=== PATIENT | male | born 1980 | race African-American/Black ===

== ENCOUNTER 2025-01-04 07:26 | Inpatient (IN) | payer OTHER, SELFPAY ==
[2025-01-04] VITALS (13 sets, daily range): BP systolic 106–132; BP diastolic 71–109; PULSE 51–79; RESP 17–28; TEMP 35.7–36.7; O2SAT 95–100; BMI 23.9; BMI 23.3
--- NOTE | 2025-01-04 08:08 | EKG12_ITS ---
Test Reason : SOB Blood Pressure : */* mmHG Vent. Rate : 55 BPM Atrial Rate : 55 BPM P-R Int : 142 ms QRS Dur : 152 ms QT Int : 514 ms P-R-T Axes : 78 174 -11 degrees QTcB Int : 491 ms Sinus bradycardia with 2:1 heart block incomplete LBBB Abnormal ECG Reconfirmed by SNOW BOSTON, JULIETTE ([id number]), scientific editor AGUSTÍN KIDD ([id number]) on 01/06/2025 6:44:03 AM Referred By: Confirmed By: JULIETTE ADAMSON MD
--- NOTE | 2025-01-04 08:14 | EX.ED.DYSGE1 ---
HPI History of Present Illness Chief Complaint: Shortness of Breath Informant: patient and spouse/S.O. Narrative Narrative: Patient is a 44-year-old male with ported history of heart failure who states has been out of the hospital frequently over the past few months and states that he is on Bumex andEliquis Eliquis presenting with worsening shortness of breath as well as swelling. He states he has had weight gain over the past 3 weeks with increased shortness of breath/dyspnea on exertion. Does report nonproductive cough. States he is not sleeping well at night. Denies any chest pain. States he is now having swelling in his stomach and because of this he has not had much appetite since yesterday. This prompted him to come to the emergency room. He is also having increased swelling of his legs. He states he normally receives his care through [facility] because of his insurance but has had a hard time following up and getting to appointments because of transportation and the distance. States he has been compliant with his medications. Is in the process of trying to establish down here in [place]. Denies any chest pain. Denies any fever or chills. Denies any change in urination. Patient does not know what triggered his fluid overload. Note from inpatient encounter at [facility] on 10/26/2024 she is at patient has history of heart failure with reduced ejection fraction, cardiogenic shock and healthcare associated pneumonia as well as DVT. He has CKD stage IIIb as well as cirrhosis. There is a reported history of left bundle branch block, has issue with compliance of therapy and at that time wanted to be discharged home . Reported ejection fraction 15%. [facility] Medical History (Updated 01/04/25 @ 16:[address] Deborah Penaloza, DO) Kidney disease Non-smoker Irregular heart beat DVT (deep venous thrombosis) CKD (chronic kidney disease) Cardiomyopathy Left bundle branch block Noncompliance Pulmonary embolism CHF (congestive heart failure) Home Medications ?Medication ?Instructions ?Recorded ?Last Taken ?Type apixaban 5 mg tablet (Eliquis) 5 mg PO BID 01/04/25 Unknown History bumetanide 1 mg tablet 1 mg PO BID 01/04/25 Unknown History isosorbide dinitrate 20 mg tablet 20 mg PO Q8H 01/04/25 Unknown History Allergy/AdvReac Type Severity Reaction Status Date / Time No Known Allergies Allergy Verified 01/04/25 07:32 Family History (Updated 01/04/25 @ 13:[address] Anshul Lemus DO) Father Heart disease Brother Heart disease Social History (Updated 01/04/25 @ 13:[address] Anshul Lemus DO) Smoking Status: Never smoker alcohol intake: never substance use type: does not use ROS ROS ED Constitutional Constitutional ED: Denies chills or fever(s) Eyes Eyes: Denies change in vision Cardiovascular Cardiovascular: Denies chest pain or palpitations Respiratory/Chest Respiratory/Chest: Reports cough, dyspnea and dyspnea on exertion; Denies sputum Gastrointestinal Gastrointestinal: Reports diarrhea and other; Denies abdominal pain, melena, nausea or vomiting Musculoskeletal Musculoskeletal: Denies arthralgias or myalgias Integumentary Denies rash Neurologic Neurologic: Reports weakness Hematologic/Lymphatic Hematologic/Lymphatic: Reports easy bleeding and easy bruising EXAM Physical Exam Const Vital Signs: 01/04/25 07:28 01/04/25 07:52 01/04/25 08:26 Temperature 97.0 F L Temperature Source Temporal Pulse Rate 56 L 56 L Respiratory Rate 20 H 18 Respiratory Effort Normal Non-Labored Respiratory Depth Normal Respiratory Pattern Normal Blood Pressure 128/95 H Blood Pressure Mean 106 Pulse Ox 95 100 Oxygen Delivery Method Room Air Room Air Room Air Oxygen Flow Rate (L/min) 01/04/25 09:00 01/04/25 10:23 01/04/25 11:06 Temperature Temperature Source Pulse Rate 51 L 51 L 56 L Respiratory Rate 24 H 19 H 18 Respiratory Effort Respiratory Depth Respiratory Pattern Blood Pressure 123/109 H 121/96 H Blood Pressure Mean 113 104 Pulse Ox 95 98 96 Oxygen Delivery Method Room Air Nasal Cannula Nasal Cannula Oxygen Flow Rate (L/min) 2 2 01/04/25 12:00 01/04/25 13:00 Temperature Temperature Source Pulse Rate 55 L 54 L Respiratory Rate 19 H 28 H Respiratory Effort Respiratory Depth Respiratory Pattern Blood Pressure 121/71 H Blood Pressure Mean 87 Pulse Ox 99 Oxygen Delivery Method Nasal Cannula Oxygen Flow Rate (L/min) 2 Positive well nourished and well developed General Appearance ED: well developed and NAD HEENT Reports moist mucous membranes Eyes PERRL Neck supple Neck Narrative: Significant JVD present. Chest Wall inspection of chest normal and palpation of chest normal Resp Resp Narrative: Mild tachypnea. Crackles at the bases, more pronounced at the right lung base Cardio Cardio Narrative: Clicking diastolic murmur present Rate: bradycardia GI GI Narrative: Nontender abdomen. Abdominal distention with mild fluid wave present. Extremity Extremity Narrative: Pitting edema up to the mid thighs, 3+ Neuro oriented x3 Sensorium / Orientation: alert Motor Exam: general weakness Psych mental status grossly normal Skin no rashes or lesions noted and no wounds MDM MDM MDM Narrative Medical decision making narrative: Patient evaluated for worsening shortness of breath, swelling and abdominal distention. On exam patient was tachypneic and appears significantly fluid overloaded. Discharge summary from [facility] on 10/17 through 10/26 reviewed. Patient was admitted for acute on chronic heart failure with reduced ejection fraction, acute DVT of the lower extremity and acute on chronic CKD. He also had questionable pneumonia of the right lower lobe. Shows that he also has cirrhosis, mild transaminitis, mild elevation of his both direct and total bili movement and elevated creatinine. At that time patient presented for pneumonia but then there was concern that he went to cardiogenic shock was admitted to the CICU. There he refused IV therapies and base of intervention such as [place] or right heart catheterization. Lab work shows elevation of his creatinine of 2.03 with mild elevation of his BUN of 30. His creatinine baseline appears to be 2.0 per [facility] documentation. He has elevation of his bilirubin but this is down from when he was in the hospital last. Bedside ultrasound performed by myself of the abdomen does show quite [place] with ascites. Given his significant elevation of his alkaline phosphatase and bilirubin did obtain ultrasound however this only showed ascites. He has high since he troponins are elevated but stable and I do not think this is an NSTEMI. BNP significantly elevated at 25,000. Given the patient's significant cardiac history, murmur which patient is unaware of having however patient does seem to be a poor historian, and worsening ascites I do think he would benefit from mission for diuresis via IV. I did speak with Dr. Almaraz about the patient's case who states that it sounds like he would be fine to follow-up outpatient with cardiology and be admitted to the medicine service for diuresis. Case discussed with Dr. Lemus for admission. After discussion with Dr. Lemus states that he would prefer to order diuresis. Lab Data Attestation: I reviewed the patient's lab results. Labs: Laboratory Results - last 24 hr 01/04/25 01/04/25 01/04/25 09:34 11:20 13:36 WBC 6.2 RBC 3.90 L Hgb 12.9 L Hct 40.6 MCV 104.1 H MCH 33.1 H MCHC 31.8 L RDW Std Deviation 57.5 H RDW Coeff of Juan 15.0 H Plt Count 219 MPV 10.4 Immature Gran % (Auto) 0.200 Neut % (Auto) 59.5 Lymph % (Auto) 30.6 [place] % (Auto) 9.1 Eos % (Auto) 0.3 Baso % (Auto) 0.3 Absolute Neuts (auto) 3.7 Absolute Lymphs (auto) 1.88 Nucleated RBC % 0.3 Sodium 144 Potassium 3.7 Chloride 105 Carbon Dioxide 25.2 Anion Gap 14 BUN 30 H Creatinine 2.03 H Estim Creat Clear Calc 51.39 Est GFR (MDRD) Non-Af 40 L BUN/Creatinine Ratio 14.9 Glucose 97 Calcium 9.0 Total Bilirubin 4.32 H Direct Bilirubin 2.68 H AST 28 ALT 22 Alkaline Phosphatase 743 H Troponin T High Sens 45 H Troponin T Hi Sens 2 Hr 42 H Troponin T Hi Sens 4Hr 45 [place] [address] H Total Protein 6.8 Albumin 3.6 Globulin 3.2 Lipase 15 Radiography Diagnostic Testing: Clinical Impression(s) from Imaging Studies Chest X-Ray 01/04/25 08:25 IMPRESSION: Bibasilar atelectasis or pneumonia. Reading Location: [facility] Abdomen Ultrasound 01/04/25 11:03 IMPRESSION: 1. Ascites. 2. Fatty infiltration of the liver. Reading Location: [facility] Rhythm Strip Rhythm Strip: Sinus bradycardia Rate: 55 Ectopy: None EKG Initial EKG: Attestation: I personally reviewed and interpreted this EKG as follows: Interpretation: Sinus Bradycardia Comments: Sinus bradycardia at a rate 85 beats per manage Right axis deviation LVH with repolarization abnormality Intraventricular conduction delay present T wave inversions in 3, aVF and V6 Prior EKG tracings: not available for review Management Discussion w/another healthcare provider: Hospitalist and Tank Builder (Cardiology-felt that patient was fine to be diuresed admitted to medicine service) Discharge Plan Dx/Rx/DC Orders Clinical Impression: CKD stage 3b, GFR 30-44 ml/min, HFrEF (heart failure with reduced ejection fraction), Elevated bilirubin, Abdominal ascites Disposition Disposition: Acute Care Hospital [facility] Discharge Date/Time: 01/04/25 14:00
--- NOTE | 2025-01-04 08:25 | RAD_ITS ---
EXAM: XR Chest, 2 Views CLINICAL INDICATION: SOB TECHNIQUE: Frontal and lateral views of the chest. COMPARISON: No relevant prior studies available. FINDINGS: LUNGS AND PLEURAL SPACES: Bibasilar atelectasis or pneumonia. No pneumothorax. HEART: Unremarkable. No cardiomegaly. MEDIASTINUM: Unremarkable. Normal mediastinal contour. BONES/JOINTS: Unremarkable. No acute fracture. RAD/Chest PA and Lateral IMPRESSION: Bibasilar atelectasis or pneumonia. [facility]
[2025-01-04 09:45] LABS: Hematocrit 40.6 % (40-54); Hemoglobin 12.9 g/dL (13.0-16.5); Immature Granulocytes Count 0.010 X10^3/uL (0.0-0.0); Mean Corp Hgb Conc 31.8 g/dL (32-36); Mean Corpuscular Volume 104.1 fL (80-94); Mean Platelet Vol. 10.4 fl (6.2-12.0); NRBC Flagged by Analyzer 0.3 % (0-5); Platelet Count 219 K/mm3 (150-450); RBC Distribution Width CV 15.0 % (11.6-14.6); RBC Distribution Width SD 57.5 fl (35.1-43.9); Red Blood Count 3.90 M/mm3 (4.6-6.2); White Blood Count 6.2 K/mm3 (4.4-11.0)
[2025-01-04 10:41] LABS: AST(SGOT) 28 U/L (<=37); Alanine Aminotransfer ALT/SGPT 22 U/L (<=46); Albumin, Serum 3.6 g/dL (3.5-5.0); Alkaline Phosphatase 743 U/L (40-129); Anion Gap 14 (5-15); BUN 30 mg/dL (4-19); BUN/Creat Ratio 14.9 RATIO (10-20); Bilirubin, Direct 2.68 mg/dL (0.00-0.30); Calcium,Total 9.0 mg/dL (7.6-11.0); Carbon Dioxide 25.2 mmol/L (21.0-32.0); Chloride 105 mmol/L (98-108); Estimated Creatinine Clearance 51.39 ml/min (50-250); Globulin 3.2 g/dL (2.2-4.2); Glucose 97 mg/dL (70-99); Lipase 15 U/L (13-75); Potassium 3.7 mmol/L (3.3-5.1); Pro- Brain NATRIURETIC PEPTIDE 24898 pg/mL (<=450)
[2025-01-04 10:59] LABS: Troponin T High Sensitivity 45 ng/L (<=22)
--- NOTE | 2025-01-04 11:03 | US_ITS ---
EXAM: US Abdomen Limited, Right Upper Quadrant CLINICAL INDICATION: ELEVATED LIVER ENZYMES AND BILI TECHNIQUE: Real-time ultrasound of the right upper quadrant with image documentation. COMPARISON: No relevant prior studies available. FINDINGS: LIVER: Liver measures up to 15.9 cm. Fatty infiltration of the liver. No intrahepatic bile duct dilation. GALLBLADDER: Negative Melendez's sign was reported by the talent management manager. No gallstones. COMMON BILE DUCT: Unremarkable as visualized. No stones. No dilation. Common bile duct measures 0.5 cm in diameter. PANCREAS: Unremarkable as visualized. RIGHT KIDNEY: Unremarkable. No stones. No hydronephrosis. The right kidney measures 9.4 x 5.7 x 3.6 cm. INFERIOR VENA CAVA: Mildly dilated IVC measuring up to 3.3 cm diameter. FREE FLUID: Ascites. US/Abdomen Limited IMPRESSION: 1. Ascites. 2. Fatty infiltration of the liver. Reading Location: [facility]
[2025-01-04 12:07] LABS: Troponin T High Sens 2 HR 42 ng/L (<=22)
--- NOTE | 2025-01-04 13:51 | HP.PCM.HOS_ITS ---
[facility] - General General Date of Service: 01/04/25 Chief Complaint: Shortness of breath. Edema. [facility] Narrative CLAIRE MEDINA, is a 44 M who presents with progressive shortness of breath and edema. Patient is a 44-year-old male with a history of nonischemic cardiomyopathy with an ejection fraction of 20%. States that he had a left heart catheterization that showed no obstructive coronary disease. They have attempted right heart catheterization but was unsuccessful and the patient declined further attempts. Resents with increased weight gain of about 10 pounds with period time. Has had numerous hospitalizations over at [facility] [place] and recently was over at [facility] in September. It is documented throughout his charts at [facility] as well as [facility] that he has a history of noncompliance. Patient at home has been taking the amantadine as well as apixaban and isosorbide. Patient has not been put on LUCRECIA inhibitors no angiotensin receptor blockers given chronic kidney disease. Because of his weight gain, shortness of breath, he presented to the ED. His BNP was 25,000, total bilirubin 4.32, direct bilirubin 2.68, creatinine 2.03. Chest x-ray shows some mild pulmonary vascular congestion but also cardiomegaly. The hospital service was contacted for admission. I did discuss with the patient if he wants to have a defibrillator that he should really be transferred elsewhere. I discussed with him at length about the indication a defibrillator because he is at higher risk of lethal cardiac arrhythmia, such as ventricular fibrillation and that would defibrillate him out if he were to sustain that. He expressed needing more time to think by that even though this was brought up to him peers in June. He had expressed apprehension about his arm limited regards to his mobility. His girlfriend was present and states that this is the first time that she has heard any of this despite him being hospice numerous times at different facilities. He again insists that he does not want defibrillator however he wants to be full code. States that anything happens that they would address that he is in the hospital. I tried to impress upon him that the concern is not necessary but we can do in the hospital what he would when he goes home. He states that he still wants time to think about it. [facility] Medical History (Updated 01/04/25 @ 14:[address] Anshul Lemus DO) CKD (chronic kidney disease) Cardiomyopathy Left bundle branch block Noncompliance Pulmonary embolism CHF (congestive heart failure) Home Medications ?Medication ?Instructions ?Recorded ?Last Taken ?Type apixaban 5 mg tablet (Eliquis) 5 mg PO BID 01/04/25 Un known History bumetanide 1 mg tablet 1 mg PO BID 01/04/25 Unknown History isosorbide dinitrate 20 mg tablet 20 mg PO Q8H 5 Unknown History Allergy/AdvReac Type Severity Reaction Status Date / Time No Known Allergies Allergy Verified 01/04/25 07:32 Family History (Updated 01/04/25 @ 13:[address] Anshul Lemus DO) Father Heart disease Brother Heart disease Social History (Updated 01/04/25 @ 13:[address] Anshul Lemus DO) Smoking Status: Never smoker alcohol intake: never substance use type: does not use ROS ROS Narrative All review of systems were negative except as mentioned above in the history of present illness and the other review of systems. Vital Signs Vital Signs Vital Signs: 01/04/25 07:28 01/04/25 07:52 01/04/25 08:26 Temperature 36.1 C L Temperature Source Temporal Pulse Rate 56 L 56 L Respiratory Rate 20 H 18 Respiratory Effort Normal Non-Labored Respiratory Depth Normal Respiratory Pattern Normal Blood Pressure 128/95 H Blood Pressure Mean 106 Pulse Ox 95 100 Oxygen Delivery Method Room Air Room Air Room Air Oxygen Flow Rate (L/min) 01/04/25 09:00 01/04/25 10:23 01/04/25 11:06 Temperature Temperature Source Pulse Rate 51 L 51 L 56 L Respiratory Rate 24 H 19 H 18 Respiratory Effort Respiratory Depth Respiratory Pattern Blood Pressure 123/109 H 121/96 H Blood Pressure Mean 113 104 Pulse Ox 95 98 96 Oxygen Delivery Method Room Air Nasal Cannula Nasal Cannula Oxygen Flow Rate (L/min) 2 2 01/04/25 12:00 01/04/25 13:00 Temperature Temperature Source Pulse Rate 55 L 54 L Respiratory Rate 19 H 28 H Respiratory Effort Respiratory Depth Respiratory Pattern Blood Pressure 121/71 H Blood Pressure Mean 87 Pulse Ox 99 Oxygen Delivery Method Nasal Cannula Oxygen Flow Rate (L/min) 2 Weight Weight: 82.2 kg Body Mass Index (BMI) 23.9 Physical Exam Narrative POCUS: Indication is for heart failure. Did not do full cardiac valve as there is no phased-array probe on the ED ultrasound. But using a FAST exam, heart was globally weak with limited motion but this was due to the fast protocol not through a cardiac protocol. And patient had markedly dilated IVC with no compressibility with inspirations. Right sided kidney was evaluated and did not show any hydronephrosis. Left kidney unable to be visualized. Did not cruciated ascites in the abdomen. Const alert and no apparent distress Constitutional Narrative: On nasal cannula. No respiratory distress. No conversational dyspnea. HEENT normocephalic and head/scalp atraumatic Neck Neck Narrative: Marked JVD. Resp normal respiratory effort, no retractions, no use of accessory muscles and clear to auscultation bilaterally Cardio regular rate, regular rhythm, S1 normal heart sound and S2 normal heart sound GI normal to inspection, nondistended, normoactive bowel sounds, soft to palpation, non-tender, non-distended and hepatosplenomegaly Extremity full ROM Extremity Narrative: Bilateral lower extremity edema. Neuro Sensorium / Orientation: awake, alert, oriented to person, oriented to place and oriented to time Psych affect normal Results Lab / Micro Data Attestation: I reviewed the patient's lab results. 01/04/25 09:34 01/04/25 09:34 Labs: Laboratory Results - last 24 hr 01/04/25 09:34: WBC 6.2, RBC 3.90 L, Hgb 12.9 L, Hct 40.6, MCV 104.1 H, MCH 33.1 H, MCHC 31.8 L, RDW Std Deviation 57.5 H, RDW Coeff of Juan 15.0 H, Plt Count 219, MPV 10.4, Immature Gran % (Auto) 0.200, Neut % (Auto) 59.5, Lymph % (Auto) 30.6, [place] % (Auto) 9.1, Eos % (Auto) 0.3, Baso % (Auto) 0.3, Absolute Neuts (auto) 3.7, Absolute Lymphs (auto) 1.88, Nucleated RBC % 0.3, Sodium 144, Potassium 3.7, Chloride 105, Carbon Dioxide 25.2, Anion Gap 14, BUN 30 H, C reatinine 2.03 H, Estim Creat Clear Calc 51.39, Est GFR (MDRD) Non-Af 40 L, BUN/Creatinine Ratio 14.9, Glucose 97, Calcium 9.0, Total Bilirubin 4.32 H, D irect Bilirubin 2.68 H, AST 28, ALT 22, Alkaline Phosphatase 743 H, Troponin T High Sens 45 H, [place] [address] H, Total Protein 6.8, Albumin 3.6, Globulin 3.2, Lipase 15 01/04/25 11:20: Troponin T Hi Sens 2 Hr 42 H EKG Initial EKG: Attestation: I personally reviewed and interpreted this EKG as follows: EKG Rhythm Intrepretation: Sinus Bradycardia Imaging Radiology Impression Chest X-Ray 01/04/25 08:25 IMPRESSION: Bibasilar atelectasis or pneumonia. Reading Location: [facility] Abdomen Ultrasound 01/04/25 11:03 IMPRESSION: 1. Ascites. 2. Fatty infiltration of the liver. Reading Location: [facility] Assessment & Plan Assessment/Plan (1) HFrEF (heart failure with reduced ejection fraction): PLAN: Patient takes Bumex as outpatient. Did recommend initiating furosemide infusion. Patient Ress reservations about that because he did not want to be limited in regards to his mobility about being tied down to IV pump. He requested the boluses instead. I did explain to him that it would likely expedite more rapid removal but also being safer on the kidneys. Expressed understanding but prefers boluses instead. So we will utilize furosemide 40 mg IV every 8 hours for the time being. Holding off on LUCRECIA inhibitors and angiotensin receptor blockers given CKD. As well as Entresto. Will start empagliflozin however. Repeat echocardiogram as previous ejection fraction has been documented as 20%. Had very lengthy conversation with he and his girlfriend at bedside about the indication for defibrillator to help defibrillate in the event of cardiac arrest such as ventricular fibrillation which she is at high risk for. Continues to decline that though he wishes to be full code. Will fluid restrict. Check daily weights. Did discuss the case with Dr. Almaraz. He said he would be happy to follow-up with the patient as outpatient. No acute cardiac needs at this point time so we will hold off on cardiology consultation at present. Patient states that he is had a left heart catheterization which has been normal. (2) Elevated bilirubin: PLAN: Suspect due to hepatic congestion due to his cardiomyopathy. (3) CKD stage 3b, GFR 30-44 ml/min: PLAN: Monitor closely while on diuretics. PLAN: Plan History of PE: Continue with apixaban History of noncompliance: Per [facility] Patient is steadfast in regards to doing only what he wants to do despite recommendations that may go against what he would want to do, such as furosemide as above. Expressed that he and his fianc?e that we will respect his autonomy in regards to his decisions but did express to him over that it is important that he have education in regards to the risks of his decisions so that he has thorough understanding of potential outcomes. VTE prophylaxis: Not indicated as patient is already on apixaban CODE STATUS: Addressed with patient. Patient wishes to be full code. He understands that he is at higher risk for lethal cardiac arrhythmias, such as ventricular fibrillation, given his cardiomyopathy. Charges/Coding Visit Charges Inpatient E&M: 50696 Init Hosp L3
[2025-01-04 14:13] LABS: Troponin T High Sens 4 HR 45 ng/L (<=22)
--- NOTE | 2025-01-04 14:32 | ECHOCS_ITS ---
Reason For Study Reason For Study: CONGESTIVE HEART FAILURE Procedure This was a 2D Doppler, Color Flow transthoracic echocardiogram. Contrast injection was performed. Exam performed portable in patient room. Left Ventricle Severely dilated left ventricle. The left ventricular ejection fraction is 15 %. Stage 3 diastolic dysfunction. There is severe global hypokinesis of the left ventricle. Right Ventricle Mildly dilated right ventricle. Mild global right ventricular systolic dysfunction. Atria The left atrium is mildly enlarged. The right atrium is moderately enlarged. Mitral Valve Normal mitral valve. Moderately severe (3+) eccentric mitral valve insufficiency. Tricuspid Valve Normal tricuspid valve. Mild (1+) tricuspid valve insufficiency. Aortic Valve Trisinus/trileaflet aortic valve. Mild (1+) aortic valve insufficiency. Pulmonic Valve Normal pulmonic valve. Mild (1+) pulmonic valve insufficiency. Great Vessels Normal aortic root. The pulmonary artery is normal size. The inferior vena cava is dilated. Pericardium/Pleural Small (<1.0 cm) pericardial effusion. Medication Diluted definity 1.5ml given slow IV push to enhance endocardial definition. MMode/2D Measurements & Calculations LVIDd: 7.0 cm IVSd: 0.83 cm asc Aorta Diam: 3.2 cm LVIDs: 6.8 cm LVPWd: 1.1 cm RVDd: 5.3 cm FS: 3.4 % LAV(MOD-bp): 100.7 ml LVAd ap4: 59.7 cm2 LVAd ap2: 59.6 cm2 LAV(MOD-bp) Indexed: 49.3 ml/m2 LVLd ap4: 10.7 cm LVLd ap2: 10.0 cm LAV(MOD-sp2): 142.1 ml EDV(MOD-sp4): 277.0 ml EDV(MOD-sp2): 298.3 ml LAV(MOD-sp4): 65.5 ml EDV(sp4-el): 284.0 ml EDV(sp2-el): 301.0 ml LVAs ap4: 52.2 cm2 LVAs ap2: 51.6 cm2 LVLs ap4: 9.6 cm LVLs ap2: 9.5 cm ESV(MOD-sp4): 240.2 ml ESV(MOD-sp2): 240.4 ml ESV(sp4-el): 240.4 ml ESV(sp2-el): 237.5 ml EF(MOD-sp4): 13.3 % EF(MOD-sp2): 19.4 % EF(sp4-el): 15.4 % SV(MOD-sp4): 36.8 ml SV(MOD-sp2): 57.9 ml SV(sp4-el): 43.6 ml SI(MOD-sp4): 18.0 ml/m2 SI(MOD-sp2): 28.4 ml/m2 Ao sinus diam: 2.[address] Junction: 2.5 cm LA A4 area: 21.8 cm2 LA dimension(2D): 5.3 cm TAPSE: 1.4 cm RA A4 area: 30.1 cm2 Time Measurements MV dec time: 0.14 sec Doppler Measurements & Calculations MV E max jamarcus: 65.4 cm/sec Lat Peak E' Jamarcus: 10.5 cm/sec Med Peak E' Jamarcus: 4.3 cm/sec MV A max jamarcus: 26.5 cm/sec E/E' lat: 6.2 E/E' med: 15.1 MV E/A: 2.5 MV dec slope: 475.8 cm/sec2 Ao V2 max: 95.2 cm/sec AI max jamarcus: 346.7 cm/sec Ao max P.6 mmHg AI max P.1 mmHg Ao V2 mean: 75.5 cm/sec AI dec slope: 105.3 cm/sec2 Ao mean P.4 mmHg AI P1/2t: 964.3 msec Ao V2 VTI: 13.8 cm AV (velocity ratio): 0.71 LV V1 max: 73.5 cm/sec PA V2 max: 51.9 cm/sec PI end-d jamarcus: 68.2 cm/sec LV V1 max P.2 mmHg LV V1 mean P.6 mmHg LV V1 mean: 61.1 cm/sec LV V1 VTI: 9.8 cm TR max jamarcus: 208.6 cm/sec TR max P.4 mmHg ECHO/Echo Complete W/ Contrast Interpretation Summary Severely dilated left ventricle. The left ventricular ejection fraction is 15 %. Stage 3 diastolic dysfunction. The inferior vena cava is dilated Mild (1+) aortic valve insufficiency. Small (<1.0 cm) pericardial effusion. Ordering Physician: Anshul Lemus Performed By: Amrita Vail RDCS
--- NOTE | 2025-01-04 15:01 | CM.ED ---
Social Work Reason for visit: No PCP. Patient verified that he does not currently have a PCP. [facility] provider list was given. also provided the [facility] van information due to patients sig other stating they may be in need of a ride at times. No further needs identified at this time. Davina Anderson, ACTUARIAL TRAINEE, PLANT TECHNICAL SPECIALIST
[2025-01-04] MEDS: Isosorbide DN 20 MG Tablet PO ×2 (16:04→22:24)
[2025-01-04] MEDS: APIXABAN 5 MG TABLET PO (22:24)
[2025-01-05 03:18] VITALS: BMI 23.2
[2025-01-05 05:47] VITALS: BP 120/89; PULSE 53; RESP 18; TEMP 36.6; O2SAT 98
[2025-01-05] MEDS: Isosorbide DN 20 MG Tablet PO ×3 (05:52→21:44)
[2025-01-05] MEDS: 0.9% Saline Lock 10 ML Syringe IV ×3 (05:58→21:52)
--- NOTE | 2025-01-05 08:05 | PCM.PN.HOSP ---
Reason for Visit Reason for Visit: Diagnoses Unspecified systolic (congestive) heart failure (01/04/25) Chronic kidney disease, stage 3b (01/04/25) Unspecified jaundice (01/04/25) Subjective Subjective Still short of breath. Decline IV sticks for blood draws. Stated he vomited after taking Jardiance. Objective Data Objective Data Vital Signs: Vital Signs Temp Pulse Resp BP Pulse Ox O2 Del Method O2 Flow Rate 36.6 C 53 L 18 120/89 H 98 Room Air 2 01/05/25 05:47 01/05/25 05:47 01/05/25 05:47 01/05/25 05:47 01/05/25 05:47 01/05/25 06:08 01/04/25 22:00 Oxygen Flow Rate (L/min) 2 Oxygen Delivery Method Room Air Weight: 79.8 kg Body Mass Index (BMI) 23.2 Intake & Output: Intake and Output for Last 24 Hours 01/03/25 01/04/25 01/05/25 23:59 23:59 23:59 Intake Total 500 / 500 Balance 500 / 500 Lab / Micro Data 01/05/25 08:33 01/05/25 08:33 Labs: Laboratory Results - last 24 hr 01/04/25 09:34: WBC 6.2, RBC 3.90 L, Hgb 12.9 L, Hct 40.6, MCV 104.1 H, MCH 33.1 H, MCHC 31.8 L, RDW Std Deviation 57.5 H, RDW Coeff of Juan 15.0 H, Plt Count 219, MPV 10.4, Immature Gran % (Auto) 0.200, Neut % (Auto) 59.5, Lymph % (Auto) 30.6, [place] % (Auto) 9.1, Eos % (Auto) 0.3, Baso % (Auto) 0.3, Absolute Neuts (auto) 3.7, Absolute Lymphs (auto) 1.88, Nucleated RBC % 0.3, Sodium 144, Potassium 3.7, Chloride 105, Carbon Dioxide 25.2, Anion Gap 14, BUN 30 H, Creatinine 2.03 H, Estim Creat Clear Calc 51.39, Est GFR (MDRD) Non-Af 40 L, BUN/Creatinine Ratio 14.9, Glucose 97, Calcium 9.0, Total Bilirubin 4.32 H, Direct Bilirubin 2.68 H, AST 28, ALT 22, Alkaline Phosphatase 743 H, Troponin T High Sens 45 H, [place] [address] H, Total Protein 6.8, Albumin 3.6, Globulin 3.2, Lipase 15 01/04/25 11:20: Troponin T Hi Sens 2 Hr 42 H 01/04/25 13:36: Troponin T Hi Sens 4Hr 45 H Radiography Diagnostic Testing: Radiology Impression Chest X-Ray 01/04/25 08:25 IMPRESSION: Bibasilar atelectasis or pneumonia. Reading Location: [facility] Abdomen Ultrasound 01/04/25 11:03 IMPRESSION: 1. Ascites. 2. Fatty infiltration of the liver. Reading Location: [facility] Echocardiogram 01/04/25 14:32 Interpretation Summary Severely dilated left ventricle. The left ventricular ejection fraction is 15 %. Stage 3 diastolic dysfunction. The inferior vena cava is dilated Mild (1+) aortic valve insufficiency. Small (<1.0 cm) pericardial effusion. Ordering Physician: Anshul Lemus Performed By: Amrita Vail RDCS Rhythm Strip Rhythm Strip: Sinus bradycardia Rate: 55 Ectopy: None Physical Exam Const alert and no apparent distress HEENT head/scalp atraumatic and moist oral mucous membranes Resp normal respiratory effort, no retractions, no use of accessory muscles and clear to auscultation bilaterally Cardio regular rate, regular rhythm, S1 normal heart sound and S2 normal heart sound GI normal to inspection, nondistended, normoactive bowel sounds, soft to palpation, non-tender and non-distended Extremity General Extremity: edema Assessment & Plan Assessment/Plan (1) HFrEF (heart failure with reduced ejection fraction): PLAN: Patient takes Bumex as outpatient. Did recommend initiating furosemide infusion. Patient Ress reservations about that because he did not want to be limited in regards to his mobility about being tied down to IV pump. He requested the boluses instead. I did explain to him that it would likely expedite more rapid removal but also being safer on the kidneys. Expressed understanding but prefers boluses instead. So we will utilize furosemide 40 mg IV every 8 hours for the time being. Holding off on LUCRECIA inhibitors and angiotensin receptor blockers given CKD. As well as Entresto. Will start empagliflozin however. Repeat echocardiogram as previous ejection fraction has been documented as 20%. Had very lengthy conversation with he and his girlfriend at bedside about the indication for defibrillator to help defibrillate in the event of cardiac arrest such as ventricular fibrillation which she is at high risk for. Continues to decline that though he wishes to be full code. Will fluid restrict. Check daily weights. Did discuss the case with Dr. Almaraz. He said he would be happy to follow-up with the patient as outpatient. No acute cardiac needs at this point time so we will hold off on cardiology consultation at present. Patient states that he is had a left heart catheterization which has been normal. States that he vomited Jardiance. Will not provide further. Explained the importance of guideline directed therapy. Tried to reassure patient that medications are meant to overall improve his cardiac function with medication. I explained that he is to follow up with cardiology as outpt. Explained that if does not improve, it is possible that he may require a heart transplant. Transplant has been mentioned to him before. (2) Elevated bilirubin: PLAN: Suspect due to hepatic congestion due to his cardiomyopathy. (3) CKD stage 3b, GFR 30-44 ml/min: PLAN: Monitor closely while on diuretics. PLAN: Plan History of PE: Continue with apixaban History of noncompliance: [facility] Patient is steadfast in regards to doing only what he wants to do despite recommendations that may go against what he would want to do, such as furosemide as above. Expressed that he and his fianc?e that we will respect his autonomy in regards to his decisions but did express to him over that it is important that he have education in regards to the risks of his decisions so that he has thorough understanding of potential outcomes. VTE prophylaxis: Not indicated as patient is already on apixaban CODE STATUS: Addressed with patient. Patient wishes to be full code. He understands that he is at higher risk for lethal cardiac arrhythmias, such as ventricular fibrillation, given his cardiomyopathy. Charges/Coding Visit Charges Inpatient E&M: 31534 Subs Hosp L2
[2025-01-05 08:20] VITALS: BP 127/94; PULSE 52; RESP 17; TEMP 36.6; O2SAT 99
[2025-01-05 08:44] LABS: Hematocrit 39.7 % (40-54); Hemoglobin 12.9 g/dL (13.0-16.5); Immature Granulocytes Count 0.020 X10^3/uL (0.0-0.0); Mean Corp Hgb Conc 32.5 g/dL (32-36); Mean Corpuscular Volume 102.6 fL (80-94); Mean Platelet Vol. 10.0 fl (6.2-12.0); NRBC Flagged by Analyzer 0 % (0-5); Platelet Count 229 K/mm3 (150-450); RBC Distribution Width CV 15.0 % (11.6-14.6); RBC Distribution Width SD 56.2 fl (35.1-43.9); Red Blood Count 3.87 M/mm3 (4.6-6.2); White Blood Count 6.4 K/mm3 (4.4-11.0)
[2025-01-05 08:56] VITALS: BMI 22.1
[2025-01-05 08:59] LABS: Prothrombin Time (Protime)PT. 19.4 SECONDS (11.7-14.9)
[2025-01-05 09:22] LABS: AST(SGOT) 29 U/L (<=37); Alanine Aminotransfer ALT/SGPT 22 U/L (<=46); Albumin, Serum 3.4 g/dL (3.5-5.0); Alkaline Phosphatase 751 U/L (40-129); Anion Gap 15 (5-15); BUN 29 mg/dL (4-19); BUN/Creat Ratio 14.6 RATIO (10-20); Calcium,Total 8.9 mg/dL (7.6-11.0); Carbon Dioxide 25.7 mmol/L (21.0-32.0); Chloride 103 mmol/L (98-108); Cholesterol 159 mg/dL (<=200); Estimated Creatinine Clearance 49.31 ml/min (50-250); Globulin 3.4 g/dL (2.2-4.2); Glucose 124 mg/dL (70-99); Low Density Lipoprotein Calc. 112 mg/dL; Potassium 3.1 mmol/L (3.3-5.1); Triglycerides 88 mg/dL; Very Low Density Lipoprotein 18 mg/dL (5-40); cholesterol:hdl ratio screen 5.48
--- NOTE | 2025-01-05 11:00 | CASEMGMT ---
RN?CM?BRINE PLANT OPERATOR?CM?to room to meet with patient for initial transition planning/care coordination?assessment.?RN?CM?introduced self and role at [facility].? Pt voices understanding and consents to?assessment?at this time.? Pt resting in bed in no distress at this time.? Pt is A/O at this time and answers all questions appropriately.?? Care providers, pharmacy, and demographics verified/updated at this time. Strata: 2 PCP: No PCP. Pt was provided w/Physician's Directory by ED JOZEF. CRISTINE MACIAS also provided pt w/Nereyda Welch info at this time. Specialists: none Preferred Pharmacy: [facility] Insurance: MMO Exchange Plan Living Will/HPOA:?Pt does not currently have LW/HCPOA and declines info at this time. Pt made aware SW can be contacted as an out-pt and make appt in the future if desired. LNOK: Pt has one daughter (20-yr-old). Significant other is, Kaitlin Hicks. Pt does not wish to have daughter listed on contact list. He states Kaitlin would know how to contact his daughter, if needed. Living Arrangements: Lives w/sig other, Kaitlin, and her brother in one-story home w/basement (pt never goes to the basement) and one stoop to go up to enter. Indep w/ADL's. Kaitlin assists w/med mgnt and does most IADL's. Transportation:?Kaitlin. Pt does not drive. DME: ?States has the following DME:?walker he uses [employer]. He does not have a pulse ox. CRISTINE MACIAS recommended he purchase one. He states, I might get one. ? Pt does not have home O2, but states he has thought about getting home O2. Made aware of Home O2 testing process and home o2 set-up process. Pt states, Well I'm not sure I want it. He wishes to talk w/ Kaitlin about it 1st. He was made aware it would not be ordered unless he qualifies for it. ?Pt states no need for further DME at this time.? HHC/SNF: No hx of either. Pt wishes to return home and states has no further concerns with going home at time of discharge. 6 cl: 21. CM?to follow for home oxygen needs and any further discharge planning/needs.? Pt voices no further concerns/needs at this time.? Advised pt to ask for?CM?if any further questions/concerns/needs arise.? Voices understanding. PLAN:??Home. Follow for possible home O2 @ dc. [place] BSN?RN?CM
[2025-01-05] MEDS: APIXABAN 5 MG TABLET PO ×2 (11:27→21:44)
[2025-01-05 14:42] VITALS: BP 104/85; PULSE 49; RESP 14; TEMP 36.6; O2SAT 97
[2025-01-05] MEDS: Potassium Chloride Oral Tablet 20 MEQ 40 MEQ PO (14:48)
[2025-01-05 21:39] VITALS: BP 102/68; PULSE 59; RESP 18; TEMP 36.7; O2SAT 98
[2025-01-06 03:40] VITALS: BP 111/83; PULSE 55; RESP 18; TEMP 36.7; O2SAT 100
[2025-01-06] MEDS: Isosorbide DN 20 MG Tablet PO ×2 (05:26→22:39)
[2025-01-06 05:27] LABS: Hematocrit 37.0 % (40-54); Hemoglobin 11.9 g/dL (13.0-16.5); Immature Granulocytes Count 0.010 X10^3/uL (0.0-0.0); Mean Corp Hgb Conc 32.2 g/dL (32-36); Mean Corpuscular Volume 104.5 fL (80-94); Mean Platelet Vol. 10.0 fl (6.2-12.0); NRBC Flagged by Analyzer 0 % (0-5); Platelet Count 219 K/mm3 (150-450); RBC Distribution Width CV 15.0 % (11.6-14.6); RBC Distribution Width SD 57.7 fl (35.1-43.9); Red Blood Count 3.54 M/mm3 (4.6-6.2); White Blood Count 6.1 K/mm3 (4.4-11.0)
[2025-01-06 05:51] LABS: AST(SGOT) 27 U/L (<=37); Alanine Aminotransfer ALT/SGPT 19 U/L (<=46); Albumin, Serum 3.1 g/dL (3.5-5.0); Alkaline Phosphatase 638 U/L (40-129); Anion Gap 13 (5-15); BUN 27 mg/dL (4-19); BUN/Creat Ratio 14.3 RATIO (10-20); Calcium,Total 8.2 mg/dL (7.6-11.0); Carbon Dioxide 26.8 mmol/L (21.0-32.0); Chloride 103 mmol/L (98-108); Estimated Creatinine Clearance 52.15 ml/min (50-250); Globulin 2.9 g/dL (2.2-4.2); Glucose 97 mg/dL (70-99); Potassium 3.1 mmol/L (3.3-5.1)
--- NOTE | 2025-01-06 08:23 | PCM.PN.HOSP ---
Reason for Visit Reason for Visit: Diagnoses Unspecified systolic (congestive) heart failure (01/04/25) Chronic kidney disease, stage 3b (01/04/25) Unspecified jaundice (01/04/25) Subjective Subjective I commented to him that he seems to be breathing well without oxygen as nasal cannula is off but he stated to me that he was actually on oxygen. Stated that is still has swelling in his ankles. Objective Data Objective Data Vital Signs: Vital Signs Temp Pulse Resp BP Pulse Ox O2 Del Method O2 Flow Rate 36.7 C 55 L 18 111/83 H 100 Room Air 2 01/06/25 03:40 01/06/25 03:40 01/06/25 03:40 01/06/25 03:40 01/06/25 03:40 01/06/25 04:28 01/04/25 22:00 Oxygen Flow Rate (L/min) 2 Oxygen Delivery Method Room Air Weight: 76.3 kg Body Mass Index (BMI) 22.1 Intake & Output: Intake and Output for Last 24 Hours 01/04/25 01/05/25 01/06/25 23:59 23:59 23:59 Intake Total 1945 / 1945 170 / 170 Output Total 1350 / 1350 Balance 595 / 595 170 / 170 Lab / Micro Data 01/06/25 05:10 01/06/25 05:10 Labs: Laboratory Results - last 24 hr 01/05/25 08:33: WBC 6.4, RBC 3.87 L, Hgb 12.9 L, Hct 39.7 L, MCV 102.6 H, MCH 33.3 H, MCHC 32.5, RDW Std Deviation 56.2 H, RDW Coeff of Juan 15.0 H, Plt Count 229, MPV 10.0, Immature Gran % (Auto) 0.300, Neut % (Auto) 65.7, Lymph % (Auto) 25.5, [place] % (Auto) 7.4, Eos % (Auto) 0.6, Baso % (Auto) 0.5, Absolute Neuts (auto) 4.2, Absolute Lymphs (auto) 1.62, Nucleated RBC % 0, PT 19.4 H, INR 1.6, Sodium 144, Potassium 3.1 L, Chloride 103, Carbon Dioxide 25.7, Anion Gap 15, BUN 29 H, Creatinine 2.02 H, Estim Creat Clear Calc 49.31 L, Est GFR (MDRD) Non-Af 40 L, BUN/Creatinine Ratio 14.6, Glucose 124 H, Calcium 8.9, Total Bilirubin 4.16 H, AST 29, ALT 22, Alkaline Phosphatase 751 H, Total Protein 6.8, Albumin 3.4 L, Globulin 3.4, Albumin/Globulin Ratio 1.0, Triglycerides 88, Cholesterol 159, LDL Cholesterol, Calc 112, VLDL Cholesterol 18, HDL Cholesterol 29 L, Cholesterol/HDL Ratio 5.48 01/06/25 05:10: WBC 6.1, RBC 3.54 L, Hgb 11.9 L, Hct 37.0 L, MCV 104.5 H, MCH 33.6 H, MCHC 32.2, RDW Std Deviation 57.7 H, RDW Coeff of Juan 15.0 H, Plt Count 219, MPV 10.0, Immature Gran % (Auto) 0.200, Neut % (Auto) 61.6, Lymph % (Auto) 28.0, [place] % (Auto) 8.9, Eos % (Auto) 1.0, Baso % (Auto) 0.3, Absolute Neuts (auto) 3.8, Absolute Lymphs (auto) 1.71, Nucleated RBC % 0, Sodium 143, Potassium 3.1 L, Chloride 103, Carbon Dioxide 26.8, Anion Gap 13, BUN 27 H, Creatinine 1.91 H, Estim Creat Clear Calc 52.15, Est GFR (MDRD) Non-Af 43 L, BUN/Creatinine Ratio 14.3, Glucose 97, Calcium 8.2, Total Bilirubin 2.99 H, AST 27, ALT 19, Alkaline Phosphatase 638 H, Total Protein 6.0, Albumin 3.1 L, Globulin 2.9, Albumin/Globulin Ratio 1.1 Rhythm Strip Rhythm Strip: Sinus bradycardia Rate: 55 Ectopy: None Physical Exam Const alert and no apparent distress HEENT head/scalp atraumatic and moist oral mucous membranes Extremity Extremity Narrative: 2+ lower extremity edema. Assessment & Plan Assessment/Plan (1) HFrEF (heart failure with reduced ejection fraction): PLAN: Patient takes Bumex as outpatient. Did recommend initiating furosemide infusion. Patient Ress reservations about that because he did not want to be limited in regards to his mobility about being tied down to IV pump. He requested the boluses instead. I did explain to him that it would likely expedite more rapid removal but also being safer on the kidneys. Expressed understanding but prefers boluses instead. So we will utilize furosemide 40 mg IV every 8 hours for the time being. Holding off on LUCRECIA inhibitors and angiotensin receptor blockers given CKD. As well as Entresto. Will start empagliflozin however. Repeat echocardiogram as previous ejection fraction has been documented as 20%. Had very lengthy conversation with he and his girlfriend at bedside about the indication for defibrillator to help defibrillate in the event of cardiac arrest such as ventricular fibrillation which she is at high risk for. Continues to decline that though he wishes to be full code. Will fluid restrict. Check daily weights. Did discuss the case with Dr. Almaraz. He said he would be happy to follow-up with the patient as outpatient. No acute cardiac needs at this point time so we will hold off on cardiology consultation at present. Patient states that he is had a left heart catheterization which has been normal. States that he vomited Jardiance. Will not provide further. Explained the importance of guideline directed therapy. Tried to reassure patient that medications are meant to overall improve his cardiac function with medication. I explained that he is to follow up with cardiology as outpt. Explained that if does not improve, it is possible that he may require a heart transplant. Transplant has been mentioned to him before. (2) Elevated bilirubin: PLAN: Trending down. Suspect due to hepatic congestion due to his cardiomyopathy. Unclear if he has cirrhosis (despite other documentation indicating that he does). (3) CKD stage 3b, GFR 30-44 ml/min: PLAN: Stable. Monitor closely while on diuretics. (4) Hypokalemia: PLAN: Continue replacement. Check magnesium. Likely 2/2 diuresis. PLAN: Plan History of PE: Continue with apixaban History of noncompliance: [facility] Patient is steadfast in regards to doing only what he wants to do despite recommendations that may go against what he would want to do, such as furosemide as above. Expressed that he and his fianc?e that we will respect his autonomy in regards to his decisions but did express to him over that it is important that he have education in regards to the risks of his decisions so that he has thorough understanding of potential outcomes. VTE prophylaxis: Not indicated as patient is already on apixaban CODE STATUS: Addressed with patient. Patient wishes to be full code. He understands that he is at higher risk for lethal cardiac arrhythmias, such as ventricular fibrillation, given his cardiomyopathy. Disposition: To be determined. Dissipate the patient may be ready to be discharged as early as the . I brought this up to the patient's attention and he stated that would not work as his girlfriend has something else going on that day. Did discuss with case management. Charges/Coding Visit Charges Inpatient E&M: 28613 Subs Hosp L2
[2025-01-06 09:31] LABS: Magnesium 1.8 mg/dL (1.5-2.2)
[2025-01-06] MEDS: APIXABAN 5 MG TABLET PO ×2 (10:05→22:39)
[2025-01-06 10:08] VITALS: BP 109/74; PULSE 69; RESP 16; TEMP 36.4; O2SAT 100
[2025-01-06] MEDS: 0.9% Saline Lock 10 ML Syringe IV ×2 (14:51→22:39)
[2025-01-06 15:02] VITALS: PULSE 56
[2025-01-06 15:03] VITALS: BP 108/83; PULSE 56; RESP 16; TEMP 36.9; O2SAT 97
[2025-01-06] MEDS: Potassium Chloride Oral Tablet 20 MEQ 40 MEQ PO (17:00)
[2025-01-06 22:30] VITALS: BP 111/79; PULSE 99; RESP 16; TEMP 36.7; O2SAT 99
[2025-01-07 03:50] VITALS: BP 114/78; PULSE 58; RESP 18; TEMP 36.6; O2SAT 99
[2025-01-07 05:20] VITALS: BMI 21.8
[2025-01-07 05:33] VITALS: BP 115/86; PULSE 85
[2025-01-07] MEDS: Isosorbide DN 20 MG Tablet PO ×3 (05:36→22:02)
--- NOTE | 2025-01-07 08:03 | PCM.PN.HOSP ---
Reason for Visit Reason for Visit: Diagnoses Hypokalemia (01/04/25) Unspecified systolic (congestive) heart failure (01/04/25) Chronic kidney disease, stage 3b (01/04/25) Unspecified jaundice (01/04/25) Subjective Subjective Complaining of pain and swelling on the plantar aspects of his feet bilaterally with left being worse than the right. Noted that his heart rhythm is also developing secondary heart block Mobitz type II. Objective Data Objective Data Vital Signs: Vital Signs Temp Pulse Resp BP Pulse Ox O2 Del Method O2 Flow Rate 36.6 C 85 18 115/86 H 99 Room Air 2 01/07/25 03:50 01/07/25 05:33 01/07/25 03:50 01/07/25 05:33 01/07/25 03:50 01/07/25 03:50 01/04/25 22:00 Oxygen Flow Rate (L/min) 2 Oxygen Delivery Method Room Air Weight: 75.1 kg Body Mass Index (BMI) 21.8 Intake & Output: Intake and Output for Last 24 Hours 01/05/25 01/06/25 01/07/25 23:59 23:59 23:59 Intake Total 1945 / 1945 170 / 754 724 / 724 Output Total 1350 / 1350 2550 / 2550 Balance 595 / 595 170 / -696 -1826 / -1826 Lab / Micro Data 01/06/25 05:10 01/07/25 05:25 Labs: Laboratory Results - last 24 hr 01/06/25 05:10: Magnesium 1.8 Rhythm Strip Rhythm Strip: Sinus bradycardia Rate: 55 Ectopy: None Physical Exam Const alert and no apparent distress HEENT head/scalp atraumatic and moist oral mucous membranes Resp normal respiratory effort and no retractions Extremity Extremity Narrative: Swelling on the plantar aspect of his left foot. No surrounding erythema bilaterally. Psych affect normal Assessment & Plan Assessment/Plan (1) HFrEF (heart failure with reduced ejection fraction): PLAN: Patient takes Bumex as outpatient. Did recommend initiating furosemide infusion. Patient Ress reservations about that because he did not want to be limited in regards to his mobility about being tied down to IV pump. He requested the boluses instead. I did explain to him that it would likely expedite more rapid removal but also being safer on the kidneys. Expressed understanding but prefers boluses instead. So we will utilize furosemide 40 mg IV every 8 hours for the time being. Holding off on LUCRECIA inhibitors and angiotensin receptor blockers given CKD. As well as Entresto. Will start empagliflozin however. Repeat echocardiogram as previous ejection fraction has been documented as 20%. Had very lengthy conversation with he and his girlfriend at bedside about the indication for defibrillator to help defibrillate in the event of cardiac arrest such as ventricular fibrillation which she is at high risk for. Continues to decline that though he wishes to be full code. Will fluid restrict. Check daily weights. Did discuss the case with Dr. Almaraz. He said he would be happy to follow-up with the patient as outpatient. No acute cardiac needs at this point time so we will hold off on cardiology consultation at present. Patient states that he is had a left heart catheterization which has been normal. States that he vomited Jardiance. Will not provide further. Explained the importance of guideline directed therapy. Tried to reassure patient that medications are meant to overall improve his cardiac function with medication. I explained that he is to follow up with cardiology as outpt. Explained that if does not improve, it is possible that he may require a heart transplant. Transplant has been mentioned to him before. (2) Elevated bilirubin: PLAN: Trending down. Suspect due to hepatic congestion due to his cardiomyopathy. Unclear if he has cirrhosis (despite other documentation indicating that he does). (3) CKD stage 3b, GFR 30-44 ml/min: PLAN: Stable. Monitor closely while on diuretics. (4) Hypokalemia: PLAN: Continue replacement. Check magnesium. Likely 2/2 diuresis. 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 Discussed with the patient about the need for pacemaker but also for his case to be a pacemaker/AICD. Offered him the ability to talk with cardiology or to see what their take would be. He was open to discussing with cardiology. Told that if he ultimately decides that he wishes to proceed with having procedure, if still indicated, then he would need to be transferred to a tertiary facility. PLAN: Plan Feet edema: More notably on the left. I suspect it is related with his heart failure overall. Patient does have compressions wraps on his legs bilaterally but he stated that he was having this problem even before that was placed. I recommended keeping his legs elevated would hopefully help with that. History of PE: Continue with apixaban History of noncompliance: [facility] Patient is steadfast in regards to doing only what he wants to do despite recommendations that may go against what he would want to do, such as furosemide as above. Expressed that he and his fianc?e that we will respect his autonomy in regards to his decisions but did express to him over that it is important that he have education in regards to the risks of his decisions so that he has thorough understanding of potential outcomes. VTE prophylaxis: Not indicated as patient is already on apixaban CODE STATUS: Addressed with patient. Patient wishes to be full code. He understands that he is at higher risk for lethal cardiac arrhythmias, such as ventricular fibrillation, given his cardiomyopathy. Patient was dressed with his bedside nurse as well as the charge nurse on the floor. Charges/Coding Visit Charges Inpatient E&M: 95424 Subs Hosp L3
[2025-01-07 09:01] LABS: AST(SGOT) 29 U/L (<=37); Alanine Aminotransfer ALT/SGPT 20 U/L (<=46); Albumin, Serum 3.2 g/dL (3.5-5.0); Alkaline Phosphatase 585 U/L (40-129); Anion Gap 10 (5-15); BUN 23 mg/dL (4-19); BUN/Creat Ratio 13.1 RATIO (10-20); Calcium,Total 8.0 mg/dL (7.6-11.0); Carbon Dioxide 28.4 mmol/L (21.0-32.0); Chloride 102 mmol/L (98-108); Estimated Creatinine Clearance 56.03 ml/min (50-250); Globulin 2.8 g/dL (2.2-4.2); Glucose 94 mg/dL (70-99); Potassium 3.1 mmol/L (3.3-5.1)
[2025-01-07] MEDS: Potassium Chloride Oral Tablet 20 MEQ 40 MEQ PO (10:31)
[2025-01-07] MEDS: APIXABAN 5 MG TABLET PO ×2 (10:32→22:02)
[2025-01-07 10:35] VITALS: BP 104/90; PULSE 52; RESP 16; TEMP 36.4; O2SAT 100
--- NOTE | 2025-01-07 11:38 | CASEMGMT ---
Tertiary Insurance review for hospitals In-network with MMO insurance if transfer is recommended is as follows: [facility], [facility], [place], [facility], [facility], [facility], , [place], [facility], [facility], [facility], and [place]. Luma Prado, Discharge Planning Asst.
--- NOTE | 2025-01-07 13:36 | PCM.CONS.C ---
Assessment & Plan Assessment/Plan (1) HFrEF (heart failure with reduced ejection fraction): PLAN: Continue with with isosorbide dinitrate Start hydralazine 25 mg daily Hold off on starting beta-jeorme given complete heart block Continue with furosemide 40 mg IV every 8 Once creatinine is back to baseline start losartan 25 mg daily He will need to be on spironolactone and SGLT2 Recommend transferring the patient to [facility] for BiV evaluation. Noncompliance is a major issue. 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 Patient will be need to be transferred for BiV evaluation in the setting of complete heart block and reduced EF. The only caveat he is not optimized from GDMT standpoint. HPI Consult Data Date of Consult: 01/07/25 HPI Narrative HPI Narrative: CLAIRE MEDINA, is a 44 male with a history of nonischemic cardiomyopathy with an ejection fraction of 20% ,CKD stage 3 presents with progressive shortness of breath and edema. he has increased weight gain of about 10 pounds with period time. Has had numerous hospitalizations over at [facility] and recently was over at [facility] in September. It is documented throughout his charts at [facility] as well as [facility] that he has a history of noncompliance. Patient at home has been taking apixaban and isosorbide. Patient has not been put on LUCRECIA inhibitors no angiotensin receptor blockers given chronic kidney disease. Because of his weight gain, shortness of breath, he presented to the ED. His BNP was 25,000, total bilirubin 4.32, direct bilirubin 2.68, creatinine 2.03. Chest x-ray shows some mild pulmonary vascular congestion but also cardiomegaly. he was found to have second degree av block with intermittent CHB. FOR[facility]LY [facility] Medical History Kidney disease Non-smoker Irregular heart beat DVT (deep venous thrombosis) CKD (chronic kidney disease) Cardiomyopathy Left bundle branch block Noncompliance Pulmonary embolism CHF (congestive heart failure) Home Medications ?Medication ?Instructions ?Recorded ?Last Taken ?Type apixaban 5 mg tablet (Eliquis) 5 mg PO BID 01/04/25 Unknown History bumetanide 1 mg tablet 1 mg PO BID 01/04/25 Unknown History isosorbide dinitrate 20 mg tablet 20 mg PO Q8H 01/04/25 Unknown History Allergy/AdvReac Type Severity Reaction Status Date / Time No Known Allergies Allergy Verified 01/04/25 07:32 Family History Father Heart disease Brother Heart disease Social History Smoking Status: Never smoker alcohol intake: never substance use type: does not use Physical Exam Const alert Resp normal respiratory effort Cardio Jugular Venous Distention: JVD Palpation: palpable S3 Rhythm: regular rhythm Heart Sounds: murmur GI normal to inspection, nondistended, normoactive bowel sounds no CVA tenderness Back/Spine no CVA tenderness Extremity General Extremity: edema Risk Stratification Risk Stratification Applicable: No Objective Data Vital Signs: Vital Signs Temp Pulse Resp BP Pulse Ox O2 Del Method O2 Flow Rate 97.6 F L 52 L 16 104/90 H 100 Room Air 2 01/07/25 10:35 01/07/25 10:35 01/07/25 10:35 01/07/25 10:35 01/07/25 10:35 01/07/25 10:35 01/04/25 22:00 Oxygen Flow Rate (L/min) 2 Oxygen Delivery Method Room Air Weight: 165 lb 9.074 oz Body Mass Index (BMI) 21.8 Intake & Output: Intake and Output for Last 24 Hours 01/05/25 01/06/25 01/07/25 23:59 23:59 23:59 Intake Total 1945 / 1945 170 / 754 724 / 724 Output Total 1350 / 1350 2550 / 2550 Balance 595 / 595 170 / -696 -1826 / -1826 Lab / Micro Data 01/06/25 05:10 01/07/25 05:25 Labs: Laboratory Results - last 24 hr 01/07/25 05:25: Sodium 141, Potassium 3.1 L, Chloride 102, Carbon Dioxide 28.4, Anion Gap 10, BUN 23 H, Creatinine 1.75 H, Estim Creat Clear Calc 56.03, Est GFR (MDRD) Non-Af 48 L, BUN/Creatinine Ratio 13.1, Glucose 94, Calcium 8.0, Total Bilirubin 2.65 H, AST 29, ALT 20, Alkaline Phosphatase 585 H, Total Protein 6.0, Albumin 3.2 L, Globulin 2.8, Albumin/Globulin Ratio 1.1 Rhythm Strip Rhythm Strip: Sinus bradycardia Rate: 55 Ectopy: None Cardiology Labs/Tests 01/07/25 05:25: Sodium 141, Potassium 3.1 L, Chloride 102, Carbon Dioxide 28.4, Anion Gap 10, BUN 23 H, Creatinine 1.75 H, Est GFR (MDRD) Non-Af 48 L, BUN/Creatinine Ratio 13.1, Glucose 94, Calcium 8.0, Total Bilirubin 2.65 H Rhythm: EKG: ECHO: Stress Test: Cardiac Cath: PCI: CT Surgery: Holter monitor: EPS: PPM: CXR: Chest CT Scan:
[2025-01-07 14:49] VITALS: BP 104/82; PULSE 50; RESP 18; TEMP 36.7; O2SAT 100
[2025-01-07 18:18] VITALS: BP 103/87; PULSE 106; RESP 16; TEMP 36.4; O2SAT 100
[2025-01-07] MEDS: Potassium Chloride Oral Soln 20 MEQ/15 ML UDC 40 MEQ PO (18:21)
[2025-01-07 21:55] VITALS: BP 116/86; PULSE 62; RESP 16; TEMP 36.6; O2SAT 98
[2025-01-08 03:45] VITALS: BP 98/75; PULSE 57; RESP 16; TEMP 36.6; O2SAT 94
[2025-01-08 05:55] VITALS: BP 108/85; PULSE 81
[2025-01-08 06:00] VITALS: BMI 22.2
[2025-01-08] MEDS: Isosorbide DN 20 MG Tablet PO ×3 (06:01→21:05)
[2025-01-08] MEDS: 0.9% Saline Lock 10 ML Syringe IV ×2 (06:01→13:42)
--- NOTE | 2025-01-08 07:50 | PCM.PN.HOSP ---
Reason for Visit Reason for Visit: Diagnoses Hypokalemia (01/04/25) Conduction disorder, unspecified (01/04/25) Unspecified systolic (congestive) heart failure (01/04/25) Chronic kidney disease, stage 3b (01/04/25) Unspecified jaundice (01/04/25) Subjective Subjective Still with pain in his feet but overall better. Objective Data Objective Data Vital Signs: Vital Signs Temp Pulse Resp BP Pulse Ox O2 Del Method O2 Flow Rate 36.6 C 81 16 108/85 H 94 Room Air 2 01/08/25 03:45 01/08/25 05:55 01/08/25 03:45 01/08/25 05:55 01/08/25 03:45 01/08/25 03:45 01/04/25 22:00 Oxygen Flow Rate (L/min) 2 Oxygen Delivery Method Room Air Weight: 76.5 kg Body Mass Index (BMI) 22.2 Intake & Output: Intake and Output for Last 24 Hours 01/06/25 01/07/25 01/08/25 23:59 23:59 23:59 Intake Total 170 / 754 2074 / 2536 702 / 702 Output Total 3602 / 4352 1475 / 1475 Balance 170 / -696 -1528 / -1816 -773 / -773 Lab / Micro Data 01/06/25 05:10 01/07/25 05:25 Labs: Laboratory Results - last 24 hr 01/07/25 05:25: Sodium 141, Potassium 3.1 L, Chloride 102, Carbon Dioxide 28.4, Anion Gap 10, BUN 23 H, Creatinine 1.75 H, Estim Creat Clear Calc 56.03, Est GFR (MDRD) Non-Af 48 L, BUN/Creatinine Ratio 13.1, Glucose 94, Calcium 8.0, Total Bilirubin 2.65 H, AST 29, ALT 20, Alkaline Phosphatase 585 H, Total Protein 6.0, Albumin 3.2 L, Globulin 2.8, Albumin/Globulin Ratio 1.1 Rhythm Strip Rhythm Strip: Sinus bradycardia Rate: 55 Ectopy: None Physical Exam Const alert and no apparent distress Constitutional Narrative: Lying in bed. On room air. No respiratory distress. No conversational dyspnea. HEENT head/scalp atraumatic Resp normal respiratory effort and no retractions Neuro Sensorium / Orientation: awake and alert Psych Psych Narrative: Flat affect Assessment & Plan Assessment/Plan (1) HFrEF (heart failure with reduced ejection fraction): PLAN: Patient takes Bumex as outpatient. Did recommend initiating furosemide infusion. Patient Ress reservations about that because he did not want to be limited in regards to his mobility about being tied down to IV pump. He requested the boluses instead. I did explain to him that it would likely expedite more rapid removal but also being safer on the kidneys. Expressed understanding but prefers boluses instead. So we will utilize furosemide 40 mg IV every 8 hours for the time being. Holding off on LUCRECIA inhibitors and angiotensin receptor blockers given CKD. As well as Entresto. Will start empagliflozin however. Repeat echocardiogram as previous ejection fraction has been documented as 20%. Had very lengthy conversation with he and his girlfriend at bedside about the indication for defibrillator to help defibrillate in the event of cardiac arrest such as ventricular fibrillation which she is at high risk for. Continues to decline that though he wishes to be full code. Will fluid restrict. Check daily weights. Did discuss the case with Dr. Almaraz. He said he would be happy to follow-up with the patient as outpatient. No acute cardiac needs at this point time so we will hold off on cardiology consultation at present. Patient states that he is had a left heart catheterization which has been normal. States that he vomited Jardiance. Will not provide further. Explained the importance of guideline directed therapy. Tried to reassure patient that medications are meant to overall improve his cardiac function with medication. I explained that he is to follow up with cardiology as outpt. Explained that if does not improve, it is possible that he may require a heart transplant. Transplant has been mentioned to him before. (2) Elevated bilirubin: PLAN: Trending down. Suspect due to hepatic congestion due to his cardiomyopathy. Unclear if he has cirrhosis (despite other documentation indicating that he does). (3) CKD stage 3b, GFR 30-44 ml/min: PLAN: Stable. Monitor closely while on diuretics. (4) Hypokalemia: PLAN: Continue replacement. Check magnesium. Likely 2/2 diuresis. 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 Discussed with the patient about the need for pacemaker but also for his case to be a pacemaker/AICD. Offered him the ability to talk with cardiology or to see what their take would be. He was open to discussing with cardiology. Told that if he ultimately decides that he wishes to proceed with having procedure, if still indicated, then he would need to be transferred to a tertiary facility. PLAN: Plan Feet edema: More notably on the left. I suspect it is related with his heart failure overall. Patient does have compressions wraps on his legs bilaterally but he stated that he was having this problem even before that was placed. I recommended keeping his legs elevated would hopefully help with that. History of PE: Continue with apixaban History of noncompliance: Per previous documentation from [employer] as well as [facility]. Patient is steadfast in regards to doing only what he wants to do despite recommendations that may go against what he would want to do, such as furosemide as above. Expressed that he and his fianc?e that we will respect his autonomy in regards to his decisions but did express to him over that it is important that he have education in regards to the risks of his decisions so that he has thorough understanding of potential outcomes. VTE prophylaxis: Not indicated as patient is already on apixaban CODE STATUS: Addressed with patient. Patient wishes to be full code. He understands that he is at higher risk for lethal cardiac arrhythmias, such as ventricular fibrillation, given his cardiomyopathy. 01/08: Discussed with the patient's in the presence of the charge nurse as well as his bedside nurse. Asked him if he had made any decisions regards to transfer, states that he is still thinking about it. Talk to him about the needs for pacemaker as he still having the heart block and that that would not be sustainable at home and that he could but also saying that he is high likelihood of ventricular arrhythmia including ventricular fibrillation that could lead to without CPR. He had reservations because a sound like they tried to do a right heart catheterization in the past but there was some sort of complications with that. Patient states that the physician who performed it stated that he messed up. Try to reassure him that he would be seen by an electrophysiology specialist that I done many of these and this is actually a different approach than performing a (what may have been) a right heart catheterization. Explained in detail about how high that is performed and the importance of that. He is still continues to say that he does not want that. I told him that is my recommendation but again expressing that we would respect his autonomy that if he did not want a pacemaker/defibrillator that he should be hospice though he is currently stable he has a hospice qualifying diagnosis given his heart failure. He stated that his girlfriend would not want people being in his house. Again offered to contact his girlfriend but he declined. He said that he would be willing to speak with hospice while he is here in the hospital. I did tell him that we are going to put pacer pads on him while he is here in the chance that we need to transcutaneous pacing. I told him that if that is the case that he will have some discomfort with that and we will give him medications to try to diminish his discomfort is much as possible, safely. I also asked him if he had reservations about going to [facility], or much of his care had been or [facility] where he had been recently. I told him that we could get him into another hospital to be seen by other specialists. He continued to decline any transfer at this time. Greater than 50 minutes spent discussing with the patient, nursing as above. Charges/Coding Visit Charges Inpatient E&M: 91962 Subs Hosp L3
[2025-01-08 08:50] VITALS: BP 102/81; PULSE 52; RESP 14; TEMP 36.7; O2SAT 99
[2025-01-08 10:55] LABS: Anion Gap 12 (5-15); BUN 23 mg/dL (4-19); BUN/Creat Ratio 12.6 RATIO (10-20); Calcium,Total 8.3 mg/dL (7.6-11.0); Carbon Dioxide 28.2 mmol/L (21.0-32.0); Chloride 101 mmol/L (98-108); Estimated Creatinine Clearance 54.58 ml/min (50-250); Glucose 100 mg/dL (70-99); Potassium 3.8 mmol/L (3.3-5.1)
[2025-01-08] MEDS: APIXABAN 5 MG TABLET PO ×2 (11:16→21:05)
[2025-01-08 21:03] VITALS: BP 109/81; PULSE 105; RESP 18; TEMP 36.6; O2SAT 99
[2025-01-09 03:00] VITALS: BP 101/75; PULSE 94; RESP 16; TEMP 37.2; O2SAT 98
[2025-01-09 05:00] VITALS: BMI 22.4
[2025-01-09 05:10] VITALS: BP 105/80
[2025-01-09] MEDS: Isosorbide DN 20 MG Tablet PO ×3 (05:10→21:16)
[2025-01-09] MEDS: 0.9% Saline Lock 10 ML Syringe IV (06:30)
[2025-01-09 07:35] LABS: Anion Gap 11 (5-15); BUN 25 mg/dL (4-19); BUN/Creat Ratio 14.5 RATIO (10-20); Calcium,Total 7.9 mg/dL (7.6-11.0); Carbon Dioxide 27.2 mmol/L (21.0-32.0); Chloride 102 mmol/L (98-108); Estimated Creatinine Clearance 59.21 ml/min (50-250); Glucose 106 mg/dL (70-99); Potassium 3.8 mmol/L (3.3-5.1)
--- NOTE | 2025-01-09 07:48 | PN.HOSP_ITS ---
Reason for Visit Reason for Visit: Diagnoses Hypokalemia (01/04/25) Conduction disorder, unspecified (01/04/25) Unspecified systolic (congestive) heart failure (01/04/25) Chronic kidney disease, stage 3b (01/04/25) Unspecified jaundice (01/04/25) Subjective Subjective Still wanting to think about pacemaker/defibrillator. Wants to talk to his girlfriend and brother or sister. Was unhappy that his girlfriend was contacted by hospice yesterday. Objective Data Objective Data Vital Signs: Vital Signs Temp Pulse Resp BP Pulse Ox O2 Del Method O2 Flow Rate 37.2 C 94 16 105/80 98 Room Air 2 01/09/25 03:00 01/09/25 03:00 01/09/25 03:00 01/09/25 05:10 01/09/25 03:00 01/09/25 03:00 01/04/25 22:00 Oxygen Flow Rate (L/min) 2 Oxygen Delivery Method Room Air Weight: 77.1 kg Body Mass Index (BMI) 22.4 Intake & Output: Intake and Output for Last 24 Hours 01/07/25 01/08/25 01/09/25 23:59 23:59 23:59 Intake Total 2074 / 2536 1402 / 1642 500 / 500 Output Total 3602 / 4352 1475 / 3275 1800 / 1800 Balance -1528 / -1816 -73 / -1633 -1300 / -1300 Lab / Micro Data 01/06/25 05:10 01/09/25 06:35 Labs: Laboratory Results - last 24 hr 01/08/25 08:50: Sodium 141, Potassium 3.8, Chloride 101, Carbon Dioxide 28.2, Anion Gap 12, BUN 23 H, Creatinine 1.83 H, Estim Creat Clear Calc 54.58, Est GFR (MDRD) Non-Af 46 L, BUN/Creatinine Ratio 12.6, Glucose 100 H, Calcium 8.3 01/09/25 06:35: Sodium 140, Potassium 3.8, Chloride 102, Carbon Dioxide 27.2, Anion Gap 11, BUN 25 H, Creatinine 1.70 H, Estim Creat Clear Calc 59.21, Est GFR (MDRD) Non-Af 50 L, BUN/Creatinine Ratio 14.5, Glucose 106 H, Calcium 7.9 Rhythm Strip Rhythm Strip: Sinus bradycardia Rate: 55 Ectopy: None Physical Exam Const Constitutional Narrative: Flat affect. Lying in bed. Nontoxic. On room air. HEENT head/scalp atraumatic and moist oral mucous membranes Resp normal respiratory effort and no retractions Psych Psych Narrative: Flat affect Assessment & Plan Assessment/Plan (1) HFrEF (heart failure with reduced ejection fraction): PLAN: Patient takes Bumex as outpatient. Did recommend initiating furosemide infusion. Patient Ress reservations about that because he did not want to be limited in regards to his mobility about being tied down to IV pump. He requested the boluses instead. I did explain to him that it would likely expedite more rapid removal but also being safer on the kidneys. Expressed understanding but prefers boluses instead. So we will utilize furosemide 40 mg IV every 8 hours for the time being. Holding off on LUCRECIA inhibitors and angiotensin receptor blockers given CKD. As well as Entresto. Will start empagliflozin however. Repeat echocardiogram as previous ejection fraction has been documented as 20%. Had very lengthy conversation with he and his girlfriend at bedside about the indication for defibrillator to help defibrillate in the event of cardiac arrest such as ventricular fibrillation which she is at high risk for. Continues to decline that though he wishes to be full code. Will fluid restrict. Check daily weights. Did discuss the case with Dr. Almaraz. He said he would be happy to follow-up with the patient as outpatient. No acute cardiac needs at this point time so we will hold off on cardiology consultation at present. Patient states that he is had a left heart catheterization which has been normal. States that he vomited Jardiance. Will not provide further. Explained the importance of guideline directed therapy. Tried to reassure patient that medications are meant to overall improve his cardiac function with medication. I explained that he is to follow up with cardiology as outpt. Explained that if does not improve, it is possible that he may require a heart transplant. Transplant has been mentioned to him before. (2) Elevated bilirubin: PLAN: Trending down. Suspect due to hepatic congestion due to his cardiomyopathy. Unclear if he has cirrhosis (despite other documentation indicating that he does). (3) CKD stage 3b, GFR 30-44 ml/min: PLAN: Stable. Monitor closely while on diuretics. (4) Hypokalemia: PLAN: Continue replacement. Check magnesium. Likely 2/2 diuresis. 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 Discussed with the patient about the need for pacemaker but also for his case to be a pacemaker/AICD. Offered him the ability to talk with cardiology or to see what their take would be. He was open to discussing with cardiology. Told that if he ultimately decides that he wishes to proceed with having procedure, if still indicated, then he would need to be transferred to a tertiary facility. PLAN: Plan Feet edema: More notably on the left. I suspect it is related with his heart failure overall. Patient does have compressions wraps on his legs bilaterally but he stated that he was having this problem even before that was placed. I recommended keeping his legs elevated would hopefully help with that. History of PE: Continue with apixaban History of noncompliance: Per previous documentation from [employer] [facility] well [facility]. Patient is steadfast in regards to doing only what he wants to do despite recommendations that may go against what he would want to do, such as furosemide as above. VTE prophylaxis: Not indicated as patient is already on apixaban CODE STATUS: Addressed with patient. Patient wishes to be full code. He understands that he is at higher risk for lethal cardiac arrhythmias, such as ventricular fibrillation, given his cardiomyopathy. 01/08: Discussed with the patient's in the presence of the charge nurse as well as his bedside nurse. Asked him if he had made any decisions regards to transfer, states that he is still thinking about it. Talk to him about the needs for pacemaker as he still having the heart block and that that would not be sustainable at home and that he could but also saying that he is high likelihood of ventricular arrhythmia including ventricular fibrillation that could lead to without CPR. He had reservations because a sound like they tried to do a right heart catheterization in the past but there was some sort of complications with that. Patient states that the physician who performed it stated that he messed up. Try to reassure him that he would be seen by an electrophysiology specialist that I done many of these and this is actually a different approach than performing a (what may have been) a right heart catheterization. Explained in detail about how high that is performed and the importance of that. He is still continues to say that he does not want that. I told him that is my recommendation but again expressing that we would respect his autonomy that if he did not want a pacemaker/defibrillator that he should be hospice though he is currently stable he has a hospice qualifying diagnosis given his heart failure. He stated that his girlfriend would not want people being in his house. Again offered to contact his girlfriend but he declined. He said that he would be willing to speak with hospice while he is here in the hospital. I did tell him that we are going to put pacer pads on him while he is here in the chance that we need to transcutaneous pacing. I told him that if that is the case that he will have some discomfort with that and we will give him medications to try to diminish his discomfort is much as possible, safely. I also asked him if he had reservations about going to [facility], or much of his care had been or [facility] where he had been recently. I told him that we could get him into another hospital to be seen by other specialists. He continued to decline any transfer at this time. 01/09: Discussed with the patient with the charge nurse, Debbie, at bedside. Again explained that our recommendation is transfer for pacemaker and defibrillator to be seen by the specialist to perform the procedure. He had asked how long the procedure would take. I told him I did not know but may be about an hour or so. He stated that would be too long. Still stating that he needed to think about it despite having 2 days already think about it and that he would need to discuss with his girlfriend and siblings. Asked him what his girlfriend want and he said that she would want him to have the pacemaker and defibrillator. And asked what his brother sister would want for him even though he had not spoken to them yet, he said that they would want him to have the procedures. Again, emphasized that if he does not want any procedures then we need to again change his CODE STATUS from full code and that he should proceed with hospice care services. He continues to support being full code and is apparently okay with either dying or winding up on a ventilator if he survive CPR. I told him we are trying to avoid that is much as we are able to get him a pacemaker and defibrillator. I told him quite frankly I am concerned about his long-term prognosis given that he appears to be overall getting worse though he is currently stable. Again, expressed the concern that he wants to be full code for us to do everything but he does not want us to do certain things such as pacemakers and defibrillators and even talking to his family. I expressed that I would be very willing to discuss with his girlfriend and his siblings if he would permit. He continues to decline us contacting any family member or friends of his. I did asked the patient directly if he wanted to kill himself, he said he does not he is not suicidal. Greater than 50 minutes of which majority the time was discussing with the patient, again addressing the recommendations for pacemaker defibrillator and transfer. But also expressing that we want to respect his autonomy but but his decisions are running counter to what we need to do such as him wanting us to do everything but not really everything in regards to procedures and labs and medications. Patient has been declining medications since he has been here. Charges/Coding Visit Charges Inpatient E&M: 23459 Subs Hosp L3
[2025-01-09 09:00] VITALS: BP 107/66; PULSE 52; RESP 17; TEMP 36.5; O2SAT 95
[2025-01-09] MEDS: APIXABAN 5 MG TABLET PO ×2 (10:45→21:17)
[2025-01-09 14:18] VITALS: BP 107/80; PULSE 98; RESP 17; TEMP 36.5; O2SAT 98
[2025-01-09 18:35] VITALS: BP 115/97; PULSE 106; RESP 16; TEMP 37.3; O2SAT 100
[2025-01-09 21:15] VITALS: BP 107/95; PULSE 100; RESP 16; TEMP 36.7; O2SAT 97
[2025-01-10 03:15] VITALS: BP 106/84; PULSE 100; RESP 16; TEMP 36.6; O2SAT 100
[2025-01-10 04:57] VITALS: BMI 21.3
[2025-01-10] MEDS: Isosorbide DN 20 MG Tablet PO (05:36)
[2025-01-10 05:37] VITALS: BP 107/80
[2025-01-10] MEDS: 0.9% Saline Lock 10 ML Syringe IV (05:37)
[2025-01-10 06:44] LABS: AST(SGOT) 30 U/L (<=37); Alanine Aminotransfer ALT/SGPT 18 U/L (<=46); Albumin, Serum 2.9 g/dL (3.5-5.0); Alkaline Phosphatase 454 U/L (40-129); Anion Gap 11 (5-15); BUN 23 mg/dL (4-19); BUN/Creat Ratio 14.6 RATIO (10-20); Calcium,Total 7.9 mg/dL (7.6-11.0); Carbon Dioxide 26.1 mmol/L (21.0-32.0); Chloride 102 mmol/L (98-108); Estimated Creatinine Clearance 61.74 ml/min (50-250); Globulin 2.9 g/dL (2.2-4.2); Glucose 92 mg/dL (70-99); Potassium 3.9 mmol/L (3.3-5.1)
--- NOTE | 2025-01-10 08:11 | PN.HOSP_ITS ---
Reason for Visit Chief Complaint: Shortness of breath. Edema. Subjective Subjective No new events. Did discuss case with his family no decision yet though feeling that he that he is not ready for pacemaker at this time. Objective Data Objective Data Vital Signs: Vital Signs Temp Pulse Resp BP Pulse Ox O2 Del Method O2 Flow Rate 36.6 C 100 16 107/80 100 Room Air 2 01/10/25 03:15 01/10/25 03:15 01/10/25 03:15 01/10/25 05:37 01/10/25 03:15 01/10/25 03:15 01/04/25 22:00 Oxygen Flow Rate (L/min) 2 Oxygen Delivery Method Room Air Weight: 73.3 kg Body Mass Index (BMI) 21.3 Intake & Output: Intake and Output for Last 24 Hours 01/08/25 01/09/25 01/10/25 23:59 23:59 23:59 Intake Total 1402 / 1642 1400 / 1400 0 / 0 Output Total 1475 / 3275 3573 / 3573 500 / 500 Balance -73 / -1633 -2173 / -2173 -500 / -500 Lab / Micro Data 01/06/25 05:10 01/10/25 05:45 Labs: Laboratory Results - last 24 hr 01/10/25 05:45: Sodium 139, Potassium 3.9, Chloride 102, Carbon Dioxide 26.1, Anion Gap 11, BUN 23 H, Creatinine 1.55 H, Estim Creat Clear Calc 61.74, Est GFR (MDRD) Non-Af 56 L, BUN/Creatinine Ratio 14.6, Glucose 92, Calcium 7.9, Total Bilirubin 2.47 H, AST 30, ALT 18, Alkaline Phosphatase 454 H, Total Protein 5.8 L, Albumin 2.9 L, Globulin 2.9, Albumin/Globulin Ratio 1.0 Rhythm Strip Rhythm Strip: Sinus bradycardia Rate: 55 Ectopy: None Physical Exam Const Constitutional Narrative: Lying in bed. No acute distress. No respiratory distress. No conversational dyspnea. On room air. HEENT head/scalp atraumatic and moist oral mucous membranes Resp normal respiratory effort and no retractions Assessment & Plan Assessment/Plan (1) HFrEF (heart failure with reduced ejection fraction): PLAN: Patient takes Bumex as outpatient. Did recommend initiating furosemide infusion. Patient Ress reservations about that because he did not want to be limited in regards to his mobility about being tied down to IV pump. He requested the boluses instead. I did explain to him that it would likely expedite more rapid removal but also being safer on the kidneys. Expressed understanding but prefers boluses instead. So we will utilize furosemide 40 mg IV every 8 hours for the time being. Holding off on LUCRECIA inhibitors and angiotensin receptor blockers given CKD. As well as Entresto. Will start empagliflozin however. Repeat echocardiogram as previous ejection fraction has been documented as 20%. Had very lengthy conversation with he and his girlfriend at bedside about the indication for defibrillator to help defibrillate in the event of cardiac arrest such as ventricular fibrillation which she is at high risk for. Continues to decline that though he wishes to be full code. Will fluid restrict. Check daily weights. Did discuss the case with Dr. Almaraz. He said he would be happy to follow-up with the patient as outpatient. No acute cardiac needs at this point time so we will hold off on cardiology consultation at present. Patient states that he is had a left heart catheterization which has been normal. States that he vomited Jardiance. Will not provide further. Explained the importance of guideline directed therapy. Tried to reassure patient that medications are meant to overall improve his cardiac function with medication. I explained that he is to follow up with cardiology as outpt. Explained that if does not improve, it is possible that he may require a heart transplant. Transplant has been mentioned to him before. Patient not on goal-directed therapy. Patient will follow-up with cardiology for further management. Will continue with bumetanide twice daily. Patient need to fluid restrict, check daily weights. (2) Elevated bilirubin: PLAN: Trending down. Suspect due to hepatic congestion due to his cardiomyopathy. Unclear if he has cirrhosis (despite other documentation indicating that he does). (3) CKD stage 3b, GFR 30-44 ml/min: PLAN: Stable. Monitor closely while on diuretics. (4) Hypokalemia: PLAN: Continue replacement. Check magnesium. Likely 2/2 diuresis. 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 Discussed with the patient about the need for pacemaker but also for his case to be a pacemaker/AICD over the past several days. Patient does not want it at this time. He understands the risk of . I explained the patient if he does have a syncopal episode that he would need to call 911 and get sent to the nearest emergency room. However, I explained to him, that if he decides that he would want a pacemaker or AICD that he should go to the emergency room of a larger hospital that would do that including [facility], [facility] PLAN: Plan Feet edema: More notably on the left. I suspect it is related with his heart failure overall. Patient does have compressions wraps on his legs bilaterally but he stated that he was having this problem even before that was placed. I recommended keeping his legs elevated would hopefully help with that. History of PE: Continue with apixaban History of noncompliance: Per previous documentation from [facility] as well as [facility]. Patient is steadfast in regards to doing only what he wants to do despite recommendations that may go against what he would want to do, such as furosemide as above. VTE prophylaxis: Not indicated as patient is already on apixaban CODE STATUS: Addressed with patient. Patient wishes to be full code. He understands that he is at higher risk for lethal cardiac arrhythmias, such as ventricular fibrillation, given his cardiomyopathy. 01/08: Discussed with the patient's in the presence of the charge nurse as well as his bedside nurse. Asked him if he had made any decisions regards to transfer, states that he is still thinking about it. Talk to him about the needs for pacemaker as he still having the heart block and that that would not be sustainable at home and that he could but also saying that he is high likelihood of ventricular arrhythmia including ventricular fibrillation that could lead to without CPR. He had reservations because a sound like they tried to do a right heart catheterization in the past but there was some sort of complications with that. Patient states that the physician who performed it stated that he messed up. Try to reassure him that he would be seen by an electrophysiology specialist that I done many of these and this is actually a different approach than performing a (what may have been) a right heart catheterization. Explained in detail about how high that is performed and the importance of that. He is still continues to say that he does not want that. I told him that is my recommendation but again expressing that we would respect his autonomy that if he did not want a pacemaker/defibrillator that he should be hospice though he is currently stable he has a hospice qualifying diagnosis given his heart failure. He stated that his girlfriend would not want people being in his house. Again offered to contact his girlfriend but he declined. He said that he would be willing to speak with hospice while he is here in the hospital. I did tell him that we are going to put pacer pads on him while he is here in the chance that we need to transcutaneous pacing. I told him that if that is the case that he will have some discomfort with that and we will give him medications to try to diminish his discomfort is much as possible, safely. I also asked him if he had reservations about going to [facility], or much of his care had been or [facility] where he had been recently. I told him that we could get him into another hospital to be seen by other specialists. He continued to decline any transfer at this time. 01/09: Discussed with the patient with the charge nurse, Debbie, at bedside. Again explained that our recommendation is transfer for pacemaker and defibrillator to be seen by the specialist to perform the procedure. He had asked how long the procedure would take. I told him I did not know but may be about an hour or so. He stated that would be too long. Still stating that he needed to think about it despite having 2 days already think about it and that he would need to discuss with his girlfriend and siblings. Asked him what his girlfriend want and he said that she would want him to have the pacemaker and defibrillator. And asked what his brother sister would want for him even though he had not spoken to them yet, he said that they would want him to have the procedures. Again, emphasized that if he does not want any procedures then we need to again change his CODE STATUS from full code and that he should proceed with hospice care services. He continues to support being full code and is apparently okay with either dying or winding up on a ventilator if he survive CPR. I told him we are trying to avoid that is much as we are able to get him a pacemaker and defibrillator. I told him quite frankly I am concerned about his long-term prognosis given that he appears to be overall getting worse though he is currently stable. Again, expressed the concern that he wants to be full code for us to do everything but he does not want us to do certain things such as pacemakers and defibrillators and even talking to his family. I expressed that I would be very willing to discuss with his girlfriend and his siblings if he would permit. He continues to decline us contacting any family member or friends of his. I did asked the patient directly if he wanted to kill himself, he said he does not he is not suicidal. 01/10: Discussed with the patient, charge nurse as well as assistant printer floor covering. And discussed with him in the presence that he does not want a pacemaker at this time. That he will be discharged at home and he is at high risk of because of the cardiomyopathy and potential for V-fib arrest but also he does have second-degree Mobitz type II heart block. Did explain to him that if he changes his mind that he should go to the emergency room of a larger hospital preferably so that he can get plugged in however, if he has a syncopal episode that would be concerning for some arrhythmia and that he should call 911 immediately and go to the nearest emergency room.
--- NOTE | 2025-01-10 08:41 | DS.PCM_ITS ---
Providers Date of Admission: 01/04/25 Primary Care Physician: L[facility] Phys Consultations 01/07/25 10:30 Consult: Cardiology Routine Consulting Provider: Lavon Campo Reason for Consult: heart block EMERGENT Consult: No Notified: Yes Date Notified: 01/07/25 Time Notified: 10:30 Method of Notification: Verbal 01/08/25 10:24 Consult: Hospice / Palliative Care Routine Consulting Provider: [facility] Reason for Consult: cardiomyopathy. Declining AICD/pacemaker. EMERGENT Consult: No Notified: Yes Date Notified: 01/08/25 Time Notified: 10:47 Method of Notification: Answering Service Reason For Visit: CHF EXACERBATION Diagnosis Discharge Diagnosis (1) HFrEF (heart failure with reduced ejection fraction): Status: Acute Code(s): I50.20 - Unspecified systolic (congestive) heart failure Plan: Patient takes Bumex as outpatient. Did recommend initiating furosemide infusion. Patient Ress reservations about that because he did not want to be limited in regards to his mobility about being tied down to IV pump. He requested the boluses instead. I did explain to him that it would likely expedite more rapid removal but also being safer on the kidneys. Expressed understanding but prefers boluses instead. So we will utilize furosemide 40 mg IV every 8 hours for the time being. Holding off on LUCRECIA inhibitors and angiotensin receptor blockers given CKD. As well as Entresto. Will start empagliflozin however. Repeat echocardiogram as previous ejection fraction has been documented as 20%. Had very lengthy conversation with he and his girlfriend at bedside about the indication for defibrillator to help defibrillate in the event of cardiac arrest such as ventricular fibrillation which she is at high risk for. Continues to decline that though he wishes to be full code. Will fluid restrict. Check daily weights. Did discuss the case with Dr. Almaraz. He said he would be happy to follow-up with the patient as outpatient. No acute cardiac needs at this point time so we will hold off on cardiology consultation at present. Patient states that he is had a left heart catheterization which has been normal. States that he vomited Jardiance. Will not provide further. Explained the importance of guideline directed therapy. Tried to reassure patient that medications are meant to overall improve his cardiac function with medication. I explained that he is to follow up with cardiology as outpt. Explained that if does not improve, it is possible that he may require a heart transplant. Transplant has been mentioned to him before. Patient not on goal-directed therapy. Patient will follow-up with cardiology for further management. Will continue with bumetanide twice daily. Patient need to fluid restrict, check daily weights. (2) Elevated bilirubin: Status: Acute Code(s): R17 - Unspecified jaundice Plan: Trending down. Suspect due to hepatic congestion due to his cardiomyopathy. Unclear if he has cirrhosis (despite other documentation indicating that he does). (3) CKD stage 3b, GFR 30-44 ml/min: Status: Acute Code(s): N18.32 - Chronic kidney disease, stage 3b Plan: Stable. Monitor closely while on diuretics. (4) Hypokalemia: Status: Acute Code(s): E87.6 - Hypokalemia Plan: Continue replacement. Check magnesium. Likely 2/2 diuresis. (5) Heart block: Status: Acute Code(s): I45.9 - Conduction disorder, unspecified Plan: 2nd degree heart block mobitz type II. Discussed with the patient about the need for pacemaker but also for his case to be a pacemaker/AICD over the past several days. Patient does not want it at this time. He understands the risk of . I explained the patient if he does have a syncopal episode that he would need to call 911 and get sent to the nearest emergency room. However, I explained to him, that if he decides that he would want a pacemaker or AICD that he should go to the emergency room of a larger hospital that would do that including [facility], [facility]. Plan Feet edema: More notably on the left. I suspect it is related with his heart failure overall. Patient does have compressions wraps on his legs bilaterally but he stated that he was having this problem even before that was placed. I recommended keeping his legs elevated would hopefully help with that. History of PE: Continue with apixaban History of noncompliance: Per previous documentation from [facility] as well as [facility]. Patient is steadfast in regards to doing only what he wants to do despite recommendations that may go against what he would want to do, such as furosemide as above. VTE prophylaxis: Not indicated as patient is already on apixaban CODE STATUS: Addressed with patient. Patient wishes to be full code. He understands that he is at higher risk for lethal cardiac arrhythmias, such as ventricular fibrillation, given his cardiomyopathy. 01/08: Discussed with the patient's in the presence of the charge nurse as well as his bedside nurse. Asked him if he had made any decisions regards to transfer, states that he is still thinking about it. Talk to him about the needs for pacemaker as he still having the heart block and that that would not be sustainable at home and that he could but also saying that he is high likelihood of ventricular arrhythmia including ventricular fibrillation that could lead to without CPR. He had reservations because a sound like they tried to do a right heart catheterization in the past but there was some sort of complications with that. Patient states that the physician who performed it stated that he messed up. Try to reassure him that he would be seen by an electrophysiology specialist that I done many of these and this is actually a different approach than performing a (what may have been) a right heart catheterization. Explained in detail about how high that is performed and the importance of that. He is still continues to say that he does not want that. I told him that is my recommendation but again expressing that we would respect his autonomy that if he did not want a pacemaker/defibrillator that he should be hospice though he is currently stable he has a hospice qualifying diagnosis given his heart failure. He stated that his girlfriend would not want people being in his house. Again offered to contact his girlfriend but he declined. He said that he would be willing to speak with hospice while he is here in the hospital. I did tell him that we are going to put pacer pads on him while he is here in the chance that we need to transcutaneous pacing. I told him that if that is the case that he will have some discomfort with that and we will give him medications to try to diminish his discomfort is much as possible, safely. I also asked him if he had reservations about going to [facility], or much of his care had been or [facility] where he had been recently. I told him that we could get him into another hospital to be seen by other specialists. He continued to decline any transfer at this time. 01/09: Discussed with the patient with the charge nurse, Debbie, at bedside. Again explained that our recommendation is transfer for pacemaker and defibrillator to be seen by the specialist to perform the procedure. He had asked how long the procedure would take. I told him I did not know but may be about an hour or so. He stated that would be too long. Still stating that he needed to think about it despite having 2 days already think about it and that he would need to discuss with his girlfriend and siblings. Asked him what his girlfriend want and he said that she would want him to have the pacemaker and defibrillator. And asked what his brother sister would want for him even though he had not spoken to them yet, he said that they would want him to have the procedures. Again, emphasized that if he does not want any procedures then we need to again change his CODE STATUS from full code and that he should proceed with hospice care services. He continues to support being full code and is apparently okay with either dying or winding up on a ventilator if he survive CPR. I told him we are trying to avoid that is much as we are able to get him a pacemaker and defibrillator. I told him quite frankly I am concerned about his long-term prognosis given that he appears to be overall getting worse though he is currently stable. Again, expressed the concern that he wants to be full code for us to do everything but he does not want us to do certain things such as pacemakers and defibrillators and even talking to his family. I expressed that I would be very willing to discuss with his girlfriend and his siblings if he would permit. He continues to decline us contacting any family member or friends of his. I did asked the patient directly if he wanted to kill himself, he said he does not he is not suicidal. 01/10: Discussed with the patient, charge nurse as well as floor refinisher. And discussed with him in the presence that he does not want a pacemaker at this time. That he will be discharged at home and he is at high risk of because of the cardiomyopathy and potential for V-fib arrest but also he does have second-degree Mobitz type II heart block. Did explain to him that if he changes his mind that he should go to the emergency room of a larger hospital preferably so that he can get plugged in however, if he has a syncopal episode that would be concerning for some arrhythmia and that he should call 911 immediately and go to the nearest emergency room. Medications at Discharge Home Medications apixaban 5 mg tablet (Eliquis) 5 mg PO BID 01/04/25 bumetanide 1 mg tablet 1 mg PO BID 01/04/25 isosorbide dinitrate 20 mg tablet 20 mg PO Q8H 01/04/25 Hospital Course Operations None Procedures 2-D Echocardiogram Summary of Care Provided Minutes Spent on Discharge: 35 Hospital Course: This is a 44-year-old male with a history of nonischemic cardiomyopathy with previous EF of 20%. Came in with increasing lower extremity edema and shortness of breath. Patient was noted to have acute CHF exacerbation with a BNP of 25,000. It also did have elevated bilirubin of total of 4.32. The ED physician read the patient has cirrhosis but I am not sure how that diagnosis came to be as I feel that his elevated bilirubin was likely due to passive congestion due to his heart failure. Since, with diuresis, his bilirubin is gone down to 2.47. So we were diuresing him and he was doing well then it was noted that the patient was having an arrhythmia which appeared to be a heart block. I looked at further and appeared to be second-degree Mobitz type II heart block. I recommended transfer for pacemaker and AICD. He wanted to speak with cardiology. He spoke with Dr. Campo of cardiology who recommended the same. Patient stated that he wanted to think about it. Patient had not made a decision over 2 days on the but endorsed that his girlfriend and family would want him to have the procedure. Evaluated the patient today, the , and he still does not want procedure. Since the patient is overall doing well and he has diuresed quite well since he has been here, I do not feel that there is any further indication for him to stay here in the hospital as he does not want transfer, he does not want hospice he is at high risk of because of the heart block and the V-fib arrest potential given his cardiomyopathy without a pacemaker and without being on goal-directed therapy. Patient is very reluctant to change any of his medications. He stated that he threw up the Jardiance is here though that was not witnessed. He is very mistrusting of medical staff at present and from what seems to be before. Patient will follow- up with cardiology here at [facility] as he states he wishes to be established down here. I did tell the patient that if he does change his mind about a pacemaker defibrillator to go to a larger institution emergency room to be admitted to have that performed however he has a syncopal episode or feels unwell to contact 911 and get sent to the nearest emergency room. Weight / BMI Weight Weight: 73.3 kg Body Mass Index (BMI) 21.3 ABG / Lab / Microbiology Data 01/06/25 05:10 01/10/25 05:45 Laboratory: Laboratory Results - last 24 hr 01/10/25 05:45: Sodium 139, Potassium 3.9, Chloride 102, Carbon Dioxide 26.1, Anion Gap 11, BUN 23 H, Creatinine 1.55 H, Estim Creat Clear Calc 61.74, Est GFR (MDRD) Non-Af 56 L, BUN/Creatinine Ratio 14.6, Glucose 92, Calcium 7.9, Total Bilirubin 2.47 H, AST 30, ALT 18, Alkaline Phosphatase 454 H, Total Protein 5.8 L, Albumin 2.9 L, Globulin 2.9, Albumin/Globulin Ratio 1.0 D/C Instructions DC O2, CPAP, BIPAP Needs Home O2 Discharge instructions: No Meaningful Use Info Meaningful Use Meaningful Use Diagnoses (Choose all that apply): CHF CHF LUCRECIA/ARB ordered at discharge?: No Reason LUCRECIA/ARB not ordered?: Drug Interaction (Patient preference) Documented LVEF (%): 15 Discharge Plan Admission Admit Date/Time: 01/04/25 13:40 Primary Reason for Your Visit: CHF Attending Provider: Anshul Lemus Primary Care Provider: Care Physician,No Primary Consulting Providers: Lavon Campo; Eugene Bucio; Deja Gregorio; Kaitlin Golden; Kalie Caruso; Jennifer Santiago [employer]; Janay Salamanca Instructions Patient Instructions: Heart Failure and Depression, Heart Failure Meds, Heart Failure Flare Up Signs, Heart Failure Make Changes Diet, Heart Failure Dc, Heart Failure Sleep Problems, Heart Failure Care, Heart Failure and Physical Activity, Heart Failure Additional Instructions / Restrictions: You had heart failure and you improved with the IV furosemide (Lasix). You will continue your Bumex at home. Restrict your fluid to 1.5 L (50 ounces or 6.5 cups) of fluid per day. Check your weight every day and keep a record. Take an additional dose of Bumex if your weight goes up more than 2 pounds in 1 day or 3 pounds in 1 week. If you change your mind about having a pacemaker or defibrillator, you can present yourself to any emergency room that would be preferable if you went to an institution that is larger that perform those procedures including [facility], [facility], [facility]. If you have issues in regards to you passing out and having no recollection of the event, irregular heartbeat, call 911 and go to the nearest emergency room. As we discussed, you are at high risk of because of your weak heart and your abnormal heart rhythm (second-degree heart block Mobitz type II). Discharge Orders/Prescriptions Prescriptions: Continued isosorbide dinitrate 20 mg tablet 20 mg PO Q8H bumetanide 1 mg tablet 1 mg PO BID Eliquis 5 mg tablet 5 mg PO BID Referrals / Follow Up: [facility] [Provider Group] - Within 1 Month Care Physician,No Primary [Primary Care Provider] - [facility] [Outside] - Within 2 Weeks Deja Gregorio MD [Med Staff - Active Staff] - Disposition Disposition (needs filled in before D/C Order can be placed): Home, Self Care Charges/Coding Visit Charges Inpatient E&M: 44504 Disch Hosp >30min
[2025-01-10 09:15] VITALS: BP 109/84; PULSE 53; RESP 17; TEMP 36.8; O2SAT 98
[2025-01-10] MEDS: APIXABAN 5 MG TABLET PO (10:08)
--- NOTE | 2025-01-10 10:42 | CASEMGMT ---
Patient has order for discharge. RN CM in to discuss needs at discharge. Patient denies needs or help at discharge. Patient had no further questions or concerns.
== END 2025-01-10 12:38 | disposition home or self-care (01) | DRG 308 ==
LOC: ED 08:37 → PCU 14:04
PROVIDERS: Emergency Provider Emergency Medicine
DX: I44.1 Atrioventricular block, second degree (principal); I50.23 Acute on chronic systolic (congestive) heart failure; K76.1 Chronic passive congestion of liver; N18.32 Chronic kidney disease, stage 3b; I42.8 Other cardiomyopathies; E87.6 Hypokalemia; Z79.01 Long term (current) use of anticoagulants; Z91.198 Patient's noncompliance with other medical treatment and regimen for other reason; Z79.899 Other long term (current) drug therapy; Z86.711 Personal history of pulmonary embolism
CPT/HCPCS: 71046; 76705; 80048; 80053; 80061; 80076; 83690; 83735; 83880; 84484; 85025; 85610; 93005; 93306; 97802; 99283; Q9957; A4216; C8929; J1938

== ENCOUNTER 2025-01-29 07:49 | Emergency (ER) | payer OTHER, SELFPAY ==
[2025-01-29] VITALS (9 sets, daily range): BP systolic 89–180; BP diastolic 73–121; PULSE 67–101; RESP 15–29; TEMP 36.1; O2SAT 92–100; BMI 23.0
--- NOTE | 2025-01-29 07:57 | EKG12_ITS ---
Test Reason : SOB Blood Pressure : */* mmHG Vent. Rate : 107 BPM Atrial Rate : 107 BPM P-R Int : 152 ms QRS Dur : 90 ms QT Int : 390 ms P-R-T Axes : 56 -37 110 degrees QTcB Int : 520 ms Sinus tachycardia with Fusion complexes Left axis deviation Minimal voltage criteria for LVH, may be normal variant ( Harrison product ) Nonspecific T wave abnormality Prolonged QT Abnormal ECG Confirmed by SNOW BOSTON, JULIETTE ([id number]), story editor RADHA DUONG ([id number]) on 02/01/2025 7:54:42 AM Referred By: Confirmed By: JULIETTE ADAMSON MD
--- NOTE | 2025-01-29 08:03 | CT_ITS ---
PROCEDURE: ABDOMEN/PELVIS W IV CONT ONLY 01/29/2025 REASON FOR EXAM: ABD PAIN, AND BLOATING TECHNIQUE: ABDOMEN/PELVIS W IV CONT ONLY Coronal and Sagittal reconstruction series were provided. CONTRAST: Isovue 370 VOLUME: 100 mL One or more dose reduction techniques were used (e.g., Automated exposure control, adjustment of the mA and/or kV according to patient size, use of iterative reconstruction technique. RADIATION DOSE SUMMARY: DLP: 700 mGycm COMPARISON: Limited abdominal ultrasound 01/04/2025. FINDINGS: Visualization is significantly limited by motion artifact and timing of contrast bolus (patient vomited during scan). Patient declined repeat scanning. Lung bases: Probable right lower lung opacities. Severe cardiomegaly. Liver: The liver is normal in size. Gallbladder: Present. Spleen: Normal-size. Pancreas: Unable to evaluate. Adrenals: Unable to evaluate. Kidneys: No nephrolithiasis. Bladder: Decompressed. Reproductive Organs: Poorly visualized. Bowel: The bowel loops are nondilated. Large volume abdominopelvic ascites. No large volume free air. Unable to evaluate appendix. Lymph nodes: Unable to evaluate. Vasculature: Grossly normal caliber. Bones: Grossly unremarkable. CT/Abdomen/Pelvis W IV Cont ONLY IMPRESSION: 1. Significantly limited examination. 2. Probable right lower lung opacities, which may reflect pneumonitis/pneumonia . 3. Large volume ascites. 4. Severe cardiomegaly. Reading Location: [id number]
--- NOTE | 2025-01-29 08:04 | EX.ED.DYSGE1 ---
HPI History of Present Illness Chief Complaint: Shortness of Breath Narrative Narrative: Patient is a 44-year-old male with past medical history of chronic kidney disease, heart failure with reduced ejection fraction, DVT, PE, abdominal ascites who presented to the emergency department the chief complaint of shortness of breath, cough and abdominal bloating with pain. Patient states that he came today as he has shortness of breath and cough and concern for that his cough is turning into pneumonia. He states that he has been short of breath as well but notes that this is a chronic issue. [facility] Medical History Abdominal ascites CKD stage 3b, GFR 30-44 ml/min Elevated bilirubin HFrEF (heart failure with reduced ejection fraction) Left ventricular ejection fraction less than 20% Kidney disease Non-smoker Irregular heart beat DVT (deep venous thrombosis) CKD (chronic kidney disease) Cardiomyopathy Left bundle branch block Noncompliance Pulmonary embolism CHF (congestive heart failure) Home Medications ?Medication ?Instructions ?Recorded ?Last Taken ?Type apixaban 5 mg tablet (Eliquis) 5 mg PO BID 01/04/25 01/28/25 History bumetanide 1 mg tablet 1 mg PO BID 01/04/25 01/28/25 History isosorbide dinitrate 20 mg tablet 20 mg PO Q8H 01/04/25 01/28/25 History Allergy/AdvReac Type Severity Reaction Status Date / Time No Known Allergies Allergy Verified 01/29/25 07:50 Family History Father Heart disease Brother Heart disease Social History Smoking Status: Never smoker alcohol intake: never substance use type: does not use ROS ROS ED ROS Narrative Constitutional: Denies any fevers, chills, headaches Cardiovascular: Denies chest pain Respiratory: Complains of cough and shortness of breath states he is coughing stuff up Abdomen: Complains of abdominal bloating and pain denies nausea vomiting diarrhea : Denies any urinary symptoms Neurological: Denies any numbness, weakness, tingling Musculoskeletal: Complains of lower extremity swelling denies back pain Skin: Denies any rashes or lesions EXAM Physical Exam Narrative Exam Narrative: General: Patient lying in bed rest comfortably did not appear to be in acute distress Head: Atraumatic, normocephalic Eyes: PERRL bilaterally, EOMI blood, no conjunctival injection noted Neck: Soft, supple, trachea midline Cardiovascular: Regular rate and rhythm Respiratory: Clear to auscultation bilaterally Abdomen: Soft, distended, diffuse tenderness palpation no rebound or guarding on exam Extremities: Patient has 2+ pitting edema in the bilateral lower extremities, +4/5 strength noted in the bilateral upper and lower extremities Neurological: Patient follow commands that he was at [facility] years 2024 Skin: Warm, dry, tact no rashes lesions noted Const Vital Signs: 01/29/25 07:49 01/29/25 07:57 01/29/25 08:34 Temperature 97 F L Temperature Source Temporal Pulse Rate 67 Respiratory Rate 22 H Respiratory Effort Normal Non-Labored Respiratory Depth Normal Respiratory Pattern Normal Blood Pressure 180/121 H Blood Pressure Mean 140 Pulse Ox 92 Oxygen Delivery Method Room Air Nasal Cannula Nasal Cannula Oxygen Flow Rate (L/min) 01/29/25 09:34 01/29/25 11:00 01/29/25 13:00 Temperature Temperature Source Pulse Rate 101 H 95 96 Respiratory Rate 29 H 15 28 H Respiratory Effort Respiratory Depth Respiratory Pattern Blood Pressure 109/94 H Blood Pressure Mean 99 Pulse Ox 100 95 94 Oxygen Delivery Method Nasal Cannula Room Air Oxygen Flow Rate (L/min) 2 01/29/25 15:00 01/29/25 15:24 Temperature 97 F L Temperature Source Pulse Rate 98 98 Respiratory Rate 27 H 27 H Respiratory Effort Respiratory Depth Respiratory Pattern Blood Pressure 109/94 H Blood Pressure Mean 99 Pulse Ox 94 Oxygen Delivery Method Oxygen Flow Rate (L/min) MDM MDM MDM Narrative Medical decision making narrative: Patient is a 44-year-old male who presents to the emergency department with a chief complaint of cough, shortness of breath and bloating/abdominal distention. On the differential diagnosis includes but not limited to CHF exacerbation, ACS, pneumonia, pneumothorax, intra-abdominal ascites. Once workup is obtained reviewed he will be reevaluated. We will hold off on fluids for now as there is concern for CHF exacerbation and patient has poor ejection fraction with the most recent on 01/04/2025 with a ejection fraction of 15% with stage III diastolic dysfunction. Patient CBC was noted be normal at 7.5, hemoglobin 13.4, platelet count normal at 368.. Patient INR was 1.5, PT of 18.8. Patient sodium was 141, potassium normal at 4.4, creatinine was elevated 2.47 which is worsened since December, GFR is worsening as well since December from 56 down to 32. Patient's total bilirubin was noted be 4.74, direct bilirubin of 3.02. Patient's AST and ALT are 20 and 10 respectively. Patient's troponin was 53 with a delta troponin of 55 and a 4-hour troponin of 49. Patient's EKG reviewed showed sinus tachycardia with fusion complexes with a rate of 107 bpm. Patient proBNP elevated 49,093. Patient's ultrasound showed hepatic fibrosis/steatosis large volume ascites consider diagnostic and therapeutic paracentesis for further evaluation as clinically indicated. Patient chest x-ray reviewed by myself by radiology showed no acute cardiopulmonary processes stable cardiomegaly. Will discuss case with hospitalist for admission. Patient be given Bumex. Discussed case with hospitalist Dr. Jaquez who is requesting transfer. I discussed this with the patient and he would prefer to go to [facility]. At 3:45 PM discussed the case with transfer line awaiting callback. Transfer line called back and notified us that the accepting physician is Dr. Burns who accept the patient to [facility]. Patient was notified is agreeable to plan. Lab Data Labs: Laboratory Results - last 24 hr 01/29/25 01/29/25 01/29/25 08:26 08:43 09:58 WBC 7.5 RBC 4.08 L Hgb 13.4 Hct 42.0 MCV 102.9 H MCH 32.8 H MCHC 31.9 L RDW Std Deviation 61.2 H RDW Coeff of Juan 16.3 H Plt Count 368 MPV 10.2 Immature Gran % (Auto) 0.300 Neut % (Auto) 62.1 Lymph % (Auto) 28.4 Union % (Auto) 8.2 Eos % (Auto) 0.3 Baso % (Auto) 0.7 Absolute Neuts (auto) 4.7 Absolute Lymphs (auto) 2.12 Nucleated RBC % 0.7 PT Cancelled 18.8 H INR Cancelled 1.5 APTT Cancelled 32.5 Sodium 141 Potassium 4.4 Chloride 104 Carbon Dioxide 21.1 Anion Gap 16 H BUN 36 H Creatinine 2.47 H Estim Creat Clear Calc 41.81 L Est GFR (MDRD) Non-Af 32 L BUN/Creatinine Ratio 14.7 Glucose 130 H Calcium 9.1 Total Bilirubin 4.74 H Direct Bilirubin 3.02 H AST 20 ALT 10 Alkaline Phosphatase 462 H Troponin T High Sens 53 H D Troponin T Hi Sens 2 Hr 55 H* Troponin [place] 4[place] [address] H Total Protein 6.7 Albumin 3.5 Globulin 3.2 01/29/25 13:18 WBC RBC Hgb Hct MCV MCH MCHC RDW Std Deviation RDW Coeff of Juan Plt Count MPV Immature Gran % (Auto) Neut % (Auto) Lymph % (Auto) Union % (Auto) Eos % (Auto) Baso % (Auto) Absolute Neuts (auto) Absolute Lymphs (auto) Nucleated RBC % PT INR APTT Sodium Potassium Chloride Carbon Dioxide Anion Gap BUN Creatinine Estim Creat Clear Calc Est GFR (MDRD) Non-Af BUN/Creatinine Ratio Glucose Calcium Total Bilirubin Direct Bilirubin AST ALT Alkaline Phosphatase Troponin T High Sens Troponin T Hi Sens 2 Hr Troponin T Hi Sens 4Hr 49 H NT pro BNP II Total Protein Albumin Globulin Radiography Diagnostic Testing: Clinical Impression(s) from Imaging Studies Abdomen/Pelvis CT 01/29/25 08:03 IMPRESSION: 1. Significantly limited examination. 2. Probable right lower lung opacities, which may reflect pneumonitis/pneumonia. 3. Large volume ascites. 4. Severe cardiomegaly. Reading Location: [facility] Chest X-Ray 01/29/25 10:07 IMPRESSION: No acute pulmonary process, stable cardiomegaly Reading Location: [facility] Abdomen Ultrasound 01/29/25 11:34 IMPRESSION: Hepatic fibrosis/steatosis. Large volume ascites. Consider diagnostic and therapeutic paracentesis for further evaluation as clinically indicated. Reading Location: [facility] Discharge Plan Triage Chief Complaint: Shortness of Breath ED Provider: Vargas Rea Dx/Rx/DC Orders Clinical Impression: Abdominal ascites, Abdominal pain, CHF exacerbation, Elevated bilirubin Prescriptions: No Action isosorbide dinitrate 20 mg tablet 20 mg PO Q8H bumetanide 1 mg tablet 1 mg PO BID Eliquis 5 mg tablet 5 mg PO BID Primary Care Provider: Care Physician,No Primary Referrals: Care Physician,No Primary [Primary Care Provider] - Print Language: Somali Disposition Disposition: DC/Tx to Another Type of HCF
--- OUTSIDE RECORDS SUMMARY | 2025-01-29 08:30 | XMS RPT_ITS | CCD ---
Author Organization [facility] Care Team Providers Care Dairy Laboratory Technician Name Role Phone Unavailable Primary Care Provider Unavailjoe Gaitan RN, Dia Velazquez Unavailable Unavailable None, Pcp Unavailable Earline Addison RN Unavailable UnavailDia Rdz RN Unavailable Unavailable None, Pcp Unavailable Earline Addison RN Unavailable Unavailjoe Addison RN, Earline Unavailable UnavailJAMAL Strickland Referring Unavailable SHANE STERN Referring Unavailable CARLOTAT, MARY ELLEN Attending Unavailable JAMAL BOSE Consulting Unavailable SHERRI JETER Admitting Unavailable MUKKAMALLA MAHGUY Admitting Unavailable MUKKDICKARANJITHER Attending Unavailable ANGEL LUIS LASSITER Consulting Unavailable MCCULLOUGH, MANSUMEET Consulting Unavailable LE, JUAN CARLOS R Referring Unavailable MCCULLOUGH, MANSUMEET Consulting Unavailable SERGEI MCGUIRE Attending Unavailable SERG CELAYA Admitting Unavailable GUADALUPE CELAYA Attending Unavailable HELDER POZO Admitting Unavailable LEWIS ALEXANDER Attending Unavailable ALONZO AGUILAR Attending Unavailable ALONZO AGUILAR Admitting Unavailable OFELIA VILLALOBOS Attending Unavailable OROFELIA LUQUE Admitting Unavailable MORGAN ULLOA Attending Unavailable AMANDA, SHANE Referring Unavailable VIC LOAIZA Referring Unavailable MCCULLOUGH, MANSUMEET Consulting Unavailable MOREHART, MARY ELLEN Attending Unavailable CARLOTAT, MARY ELLEN Admitting Unavailable VIC LOAIZA Attending Unavailable VARGAS BEACH Attending Unavailable SHELLI LUIS Attending Unavailable SHANNAN LIMA Consulting Unavailable EARL, RAFA Admitting Unavailable LE, JUAN CARLOS R Referring Unavailable LE, JUAN CARLOS R Referring Unavailable ALEX ZHANG Attending Unavailable ALEX ZHANG Attending Unavailable MORGAN ULLOA Attending Unavailable MORGAN ULLOA Attending Unavailable SERGEI ASTUDILLO Attending Unavailable ALONZO AGUILAR Attending Unavailable NGHIA WEBB Admitting Unavailable JUAN CARLOS LE Referring Unavailable Unavailable Primary Care Provider UnavailYuval Kathleen MD Primary Care Provider [phone] SHARI HIGGINS Primary Care Unavailable SABINE LANGFORD MD Admitting Unavailable JOVANNY BOSTON, JENNIFER Consulting Unavailjoe e Unavailable Primary Care Provider Unavailjoe Penaloza DO, Dr. Cabrera Emergency Provider Care Physician, No Primary Primary Care Provider Unavailable Dr. Anshul Lemus DO Admit Provider Dr. Anshul Lemus DO Attending Provider Dr. Anshul Lemus DO Other Provider Alber BOSTON, Dr. Doll Other Provider Unavailable Dr. Eugene Bucio DO Other Provider Darline BOSTON, Dr. Short Other Provider Chico BOSTON, Dr. Madrigal Other Provider Shady DOUGHNUT MACHINE OPERATOR HELPER-C, Kalie Other Provider Unavailabl yasmany Santiago DOUGHNUT MACHINE OPERATOR HELPER-C, Jennifer Other Provider Jadyn PA, Janay Other Provider Rufina BOSTON, Dr. Rodas Attending Provider Alber BOSTON, Dr. Doll Attending Provider Unavailab le Care Physician, No Primary Primary Care Unava ilable Mariah Anshul Consulting Unavailable Mariah Anshul Admitting Unavailable Mariah Anshul Attending Unavailable Clark Almaraz Attending Unavailable Care Physician, No Primary Primary Care Unava ilable Lavon Campo Attending Unavailable Care Physician, No Primary Primary Care Unava ilable Lavon Campo Consulting Unavailable Eugene Bucio Consulting Unavailable Deja Gregorio Consulting Unavailable Kaitlin Golden Consulting Unavailable ShadyKalie loaiza Consulting Unavailable Jack DOUGHNUT MACHINE OPERATOR HELPER, Jennifer Consulting Unavailable Masci, Janay Consulting Unavailable Lavon Campo Consulting Unavailable Meripperi, Anshul Admitting Unavailable Care Physician, No Primary Primary Care Unava ilable Jopperi, Anshul Attending Unavailable Eugene Bucio Consulting Unavailable Darline, Deja Consulting Unavailable Golden, Kaitlin Consulting Unavailable Shady, Kalie Consulting Unavailable Jack DOUGHNUT MACHINE OPERATOR HELPER, Jennifer Consulting Unavailable Mascdaniella, Janay Consulting Unavailable JIM STOCKTON Admitting Unavailable PROVIDER, UNKNOWN Attending Unavailable ROBIN, YUVAL Primary Care Unavailable PROVIDER, UNKNOWN Admitting Unavailable ROBIN, YUVAL Attending Unavailable ROBIN, YUVAL Primary Care Unavailable PROVIDER, UNKNOWN Attending Unavailable PROVIDER, UNKNOWN Admitting Unavailable ROBIN, YUVAL Primary Care Unavailable MIGUEL ANGEL BLACKMAN Attending Unavailable CONSULT, IP CARDIOLOGY Consulting Unavailab le ROBIN, YUVAL Primary Care Unavailable ESAU, LANCE A. Admitting Unavailable REQUEST, IP PHYSICAL THERAPY SERVICE Consulting Unavailable REQUEST, IP OCCUPATIONAL THERAPY SERVICE Consult ing Unavailable CONSULT, IP PALLIATIVE CARE Consulting Unav ailable PROVIDER, IP ETHICS Consulting Unavailable CONSULT, IP CARDIOLOGY HEART FAILURE Consulting Unavailable CONSULT, IP CARDIOLOGY HEART FAILURE Consulting Unavailable KATHLEEN BURDEN Admitting Unavailable JENN BAKER Attending Unavailable ROBIN, YUVAL Primary Care Unavailable CONSULT, IP NEPHROLOGY Consulting Unavailab le CONSULT, IP GASTROENTEROLOGY Consulting Siomara vailable PROVIDER, UNKNOWN Attending Unavailable PROVIDER, UNKNOWN Admitting Unavailable ROBIN, YUVAL Primary Care Unavailable PROVIDER, UNKNOWN Attending Unavailable PROVIDER, UNKNOWN Admitting Unavailable ROBIN, YUVAL Primary Care Unavailable PROVIDER, UNKNOWN Attending Unavailable PROVIDER, UNKNOWN Admitting Unavailable ROBIN, YUVAL Primary Care Unavailable ROBIN, YUVAL Primary Care Unavailable PROVIDER, UNKNOWN Attending Unavailable ESAU, LANCE A. Admitting Unavailable PROVIDER, UNKNOWN Attending Unavailable PROVIDER, UNKNOWN Admitting Unavailable ROBIN, YUVAL Primary Care Unavailable PROVIDER, UNKNOWN Admitting Unavailable ROBIN, YUVAL Attending Unavailable ROBIN, YUVAL Primary Care Unavailable PROVIDER, UNKNOWN Attending Unavailable ESAU, LANCE A. Admitting Unavailable ROBIN, YUVAL Primary Care Unavailable ROBIN, YUVAL Primary Care Unavailable PROVIDER, UNKNOWN Attending Unavailable ESAU, LANCE A. Admitting Unavailable ESAU, LANCE A. Admitting Unavailable PROVIDER, UNKNOWN Attending Unavailable ROBIN, YUVAL Primary Care Unavailable ESAU, LANCE A. Admitting Unavailable PROVIDER, UNKNOWN Attending Unavailable ROBIN, YUVAL Primary Care Unavailable PROVIDER, UNKNOWN Attending Unavailable ESAU, LANCE A. Admitting Unavailable ROBIN, YUVAL Primary Care Unavailable PROVIDER, UNKNOWN Admitting Unavailable SCHIELE, LUIS EDUARDO Attending Unavailable YUVAL GAYLE Primary Care Unavailable PROVIDER, UNKNOWN Attending Unavailable LANCE ENNIS Admitting Unavailable ROBIN, YUVAL Primary Care Unavailable PROVIDER, UNKNOWN Attending Unavailable LANCE ENNIS Admitting Unavailable ROBIN, YUVAL Primary Care Unavailable PROVIDER, UNKNOWN Admitting Unavailable ROBIN, YUVAL Attending Unavailable ROBIN, YUVAL Primary Care Unavailable PROVIDER, UNKNOWN Attending Unavailable PROVIDER, UNKNOWN Admitting Unavailable ROBIN, YUVAL Primary Care Unavailable PROVIDER, UNKNOWN Attending Unavailable LANCE ENNIS Admitting Unavailable ROBIN, YUVAL Primary Care Unavailable ANSHUL LAIRD Attending Unavailable SIRAJ, JIM Admitting Unavailable REQUEST, IP PHYSICAL THERAPY SERVICE Consulting Unavailable ROBIN, YUVAL Primary Care Unavailable SUNNY, MAGED Admitting Unavailable SUNNY, MAGED Attending Unavailable Allergies Allergy Classification Reported Allergen(s) Allergy Type Date of Onset Reaction(s) Facility (20 sources) sacubitril / valsartan; Translations: [SACUBITRIL-VALS TONY] Drug Allergy 08-04-2024 Nausea And Vomiting, Other: See Comments, Vomiting [facility] (20 sources) torsemide; Translations: [TORSEMIDE] Drug Allergy 08-04-2024 Nausea And Vomiting, Vomiting [facility] Medications Current Medications Medication Drug Class(es) Dates Sig (Normalized) Sig (Original) apixaban 5 mg oral tablet (20 sources) Factor Xa Inhibitor Start: 07-03-2024 End: 01-23-2025 take 1 tablet by mouth twice daily apixaban (ELIQUIS) 5 mg tab(s) Take 5 mg by mouth two times a day. 07/16/2024 Active Start: 06-21-2024 End: 08-23-2024 take 2 tablets by mouth twice daily in the evening, then take 1 tablet by mouth twice daily apixaban (Eliquis) 5 MG tablet Take 2 tablets (10 mg) by mouth 2 times daily for 3 days, THEN 1 tablet (5 mg) 2 times daily. 60 tablet 3 06/21/2024 2:26 PM EST 06/21/2024 07/05/2024 Discontinued (Stop taking at discharge) Start: 06-17-2024 End: 06-21-2024 apixaban (Eliquis) tablet 10 mg bumetanide 1 mg oral tablet (20 sources) Loop Diuretic Start: 10-25-2024 take 1 mg intravenously twice daily 1 mg, Intravenous Push, 2 TIMES DAILY DIURETIC, First dose on Fri10/25/24 at 1630, Until Discontinued Start: 10-22-2024 End: 10-25-2024 take 1 mg by mouth once daily 1 mg, Oral, DAILY, First dose on Fri10/22/24 at 1130, Until Discontinued Start: 10-18-2024 End: 10-21-2024 take 1 mg intravenously twice daily 1 mg, Intravenous Push, 2 TIMES DAILY DIURETIC, First dose on Fri10/18/24 at 0700, Until Discontinued Start: 10-18-2024 take 1 dose intravenously once 1 mg, Intravenous Push, ONCE, 1 dose, On Fri10/18/24 at 0404 Start: 10-05-2024 take 2 mg by mouth once daily 2 mg, Oral, DAILY, First dose on Fri10/05/24 at 1400, Until Discontinued Start: 08-12-2024 End: 08-19-2024 Start: 08-05-2024 End: 08-05-2025 take 1 tablet by mouth twice daily Bumetanide 1 mg tab let Active 1 mg PO TWICE A DAY January 04, 2025 12:00am Start: 08-05-2024 End: 10-26-2024 take 2 tablets by mouth twice daily bumetanide (BUMEX) 1 MG tablet Take 2 Tablets by mouth 2 times daily. 120 Tablet 2 09/11/2024 10/26/2024 Discontinued calcitriol 0.0005 mg oral capsule (20 sources) Vitamin D3 Analog Start: 08-20-2024 End: 08-27-2024 take 1 capsule by mouth twice daily calcitRIOL (ROCALTROL) 0.5 MCG capsule Take 0.5 mcg by mouth 2 times daily. 08/20/2024 Active Start: 08-20-2024 End: 08-20-2024 calcium carbonate 500 mg chewable tablet (20 sources) Start: 08-20-2024 End: 08-20-2025 calcium carbonate (TUMS) 500 mg (200 mg elemental) tablet Take 1,000 mg by mouth 3 times daily. 08/20/2024 08/20/2025 Active Start: 08-20-2024 End: 08-20-2025 calcium carbonate (Tums) 500 MG chewable tablet Chew 2 tablets (1,000 mg) 3 times daily. 180 tablet 11 08/20/2024 08/20/2025 Active docusate sodium 100 mg oral capsule (11 sources) Start: 10-18-2024 take 1 capsule by mouth twice daily docusate sodium (COLACE) 100 MG capsule Take 1 Capsule by mouth 2 times daily. 60 Capsule 3 10/26/2024 10:12 AM EDT 10/26/2024 Active guaiFENesin 20 mg/ml oral solution (1 source) Start: 10-18-2024 isosorbide dinitrate 20 mg oral tablet (20 sources) Nitrate Vasodilator Start: 01-04-2025 take 1 tablet by mouth every eight hours Isosorbide Dinitrate 20 mg tablet Active 20 mg PO Q8H January 04, 2025 12:00am Start: 10-01-2024 take 20 mg by mouth three times daily 20 mg, Oral, THREE TIMES DAILY 0900, 1300, 1700, First dose on Fri10/01/24 at 1700, Until Discontinued Start: 09-11-2024 take 1 tablet by rafiq th three times daily isosorbide dinitrate (ISORDIL) 20 MG tablet Take 1 Tablet by mouth 3 times daily. 90 Tablet 3 10/26/2024 Active Start: 09-11-2024 End: 10-26-2024 take 3 tablets by mouth three times daily in the evening isosorbide dinitrate (ISORDIL) 20 MG tablet Take 3 Tablets by mouth 3 times Daily. 90 Tablet 3 09/11/2024 1:22 PM EDT 09/11/2024 10/01/2024 Discontinued (Duplicate (*won't e-cancel)) Start: 08-12-2024 End: 08-12-2024 Start: 07-04-2024 End: 07-05-2024 take 40 mg by mouth three times daily 40 mg, Oral, 3 times daily, First dose (after last modification) on 07/04/24 at 1400 Start: 07-03-2024 End: 07-04-2024 take 30 mg by mouth three times daily 30 mg, Oral, 3 times daily, First dose on Fri07/03/24 at 2145 Start: 06-21-2024 End: 09-19-2024 take 1.5 tablets by mouth three times daily isosorbide dinitrate (Isordil) 20 MG tablet Take 1.5 tablets (30 mg) by mouth 3 times daily. 270 tablet 06/21/2024 07/05/2024 Discontinued (Stop taking at discharge) Start: 06-17-2024 End: 06-21-2024 take 30 mg by mouth three times daily 30 mg, Oral, 3 times daily, First dose (after last modification) on Benita 06/17/24 at 1400 Start: 05-28-2024 End: 08-30-2024 losartan potassium 50 mg oral tablet (20 sources) Angiotensin 2 Receptor Jerome Start: 07-07-2024 End: 08-04-2025 take 1 tablet by mouth once daily losartan (Cozaar) 50 MG tablet Indications: HFrEF (heart failure with reduced ejection fraction) ([facility]) Take 1 tablet (50 mg) by mouth daily. 30 tablet 11 08/04/2024 08/04/2025 Active Start: 07-05-2024 End: 07-31-2025 take 1 tablet by mouth once daily losartan (Cozaar) 25 MG tablet Take 1 tablet (25 mg) by mouth daily. 30 tablet 11 07/30/2024 12:47 PM EST 07/31/2024 08/04/2024 Discontinued (Reorder) Start: 03-08-2024 End: 03-08-2025 take 1 tablet by mouth once daily losartan (Cozaar) 100 MG tablet Take 1 tablet (100 mg) by mouth daily. 30 tablet 11 03/08/2024 06/01/2024 Discontinued (Stop taking at discharge) Start: 03-07-2024 End: 03-07-2024 take 100 mg by mouth once daily 100 mg, Oral, Daily, F irst dose (after last modification) on 03/07/24 at 0900 Start: 02-29-2024 End: 05-31-2024 take 50 mg by mouth once daily 50 mg, Oral, Daily, Fir st dose on 03/06/24 at 1230 magnesium oxide 400 mg oral tablet (20 sources) Start: 07-29-2024 End: 10-21-2024 take 1 tablet by mouth once daily magnesium oxide (MAG-OX) 400 (240 Mg) MG TABS tablet Take 400 mg by mouth daily. 07/31/2024 Active Start: 07-15-2024 End: 07-15-2024 take 400 mg by mouth once 400 mg, Oral, Once, On Benita at 1100, For 1 dose 24 hr metoprolol succinate 25 mg extended release oral tablet (20 sources) beta-Adrenergic Jerome Start: 08-19-2024 End: 08-21-2025 take 1 tablet by mouth once daily metoprolol succinate XL (Toprol-XL) 25 MG 24 hr tablet Take 1 tablet (25 mg) by mouth daily. Do not crush or chew. Do not start before August 21, 2024. 30 tablet 11 08/21/2024 08/21/2025 Active Start: 07-14-2024 End: 07-14-2024 5 mg, IntraVENous, Once, On Fri07/14/24 at 0445, For 1 dose Start: 07-14-2024 End: 07-14-2024 5 mg, IntraVENous, Once, On Fri07/14/24 at 0445, For 1 dose Start: 02-29-2024 End: 05-31-2024 take 50 mg by mouth once daily 50 mg, Oral, Daily, Fir st dose on 03/06/24 at 1230 pantoprazole 40 mg delayed r elease oral tablet (20 sources) Proton Pump Inhibitor Start: 06-13-2024 End: 06-21-2025 take 1 tablet by mouth once christiano y pantoprazole (PROTONIX) 40 MG tablet Take 40 mg by mouth daily. Active Pediatric Multivitamins-Iron (Cerovite Jr) chew tab (10 sources) Start: 10-27-2024 take 1 tablet by mouth once daily Pediatric Multivitamins-Iron (Cerovite Jr) chew tab Chew and swallow 1 Tablet by mouth daily. 30 Tablet 10/26/2024 10:12 AM EDT 10/27/2024 Active Start: 10-27-2024 End: 11-26-2024 take 1 tablet by mouth once daily Pediatric Multivitamins-Iron (Cerovite Jr) chew tab Chew and swallow 1 Tablet by mouth daily. 30 Tablet 10/26/2024 10:12 AM EDT 10/27/2024 11/26/2024 Active spironolactone 25 mg oral ta blet (20 sources) Aldosterone Antagonist Start: 08-04-2024 End: 08-04-2025 Start: 07-30-2024 End: 07-30-2024 take 12.5 mg by mouth once daily 12.5 mg, Oral, Daily, First dose on Fri07/30/24 at 1045 Start: 07-16-2024 End: 07-16-2025 take 0.5 tablet by mouth once daily in the evening spironolactone (Aldactone) 25 MG tablet Take 0.5 tablets (12.5 mg) by mouth daily. 15 tablet 11 07/16/2024 3:52 PM EST 07/16/2024 08/04/2024 Discontinued (Reorder) Start: 07-16-2024 End: 07-16-2024 take 12.5 mg by mouth once daily 12.5 mg, Oral, Daily, First dose on Fri07/16/24 at 0900 Start: 03-06-2024 End: 08-04-2025 take 1 tablet by mouth once daily spironolactone (Aldactone) 25 MG tablet Indications: HFrEF (heart failure with reduced ejection fraction) (HCC) Take 1 tablet (25 mg) by mouth daily. 30 tablet 11 08/04/2024 08/04/2025 Active Completed/Discontinued Medications Medication Drug Class(es) Dates Sig (Normalized) Sig (Original) acetaminophen 32 mg/ml oral solution (19 sources) Start: 10-18-2024 650 mg, Oral, EVERY 4 HOURS PRN, Starting on 10/18/24 at 0938, Until Discontinued, Mild Pain (pain score 1,2,3), Moderate Pain (pain score 4,5,6), Severe Pain (pain score 7,8,9,10) Start: 10-02-2024 1,000 mg, Oral , EVERY 8 HOURS PRN, Starting on 10/02/24 at 0800, Until Discontinued, Mild Pain (pain score 1,2,3), Moderate Pain (pain score 4,5,6) Start: 10-01-2024 End: 10-02-2024 1,000 mg, Oral, EVERY 6 HOUR S PRN, Starting on Fri10/01/24 at 2357, Until 10/02/24 at 0045, Mild Pain (pain score 1,2,3), Moderate Pain (pain score 4,5,6) Start: 07-24-2024 End: 07-30-2024 take 1 tablet by mouth every six hours as needed for pain and fever acetaminophen (Tylenol) tablet 650 mg Start: 07-12-2024 End: 07-16-2024 take 1 tablet by mouth every six hours as needed for pain and fever acetaminophen (Tylenol) tablet 650 mg Start: 07-04-2024 End: 07-05-2024 take 1000 mg by mouth every eight hours as needed for pain 1,000 mg, Oral, Every 8 hours PRN, mild pain (1-3), Starting on 07/04/24 at 1204 Start: 06-13-2024 End: 06-21-2024 take 1 tablet by mouth every six hours as needed for pain and fever acetaminophen (Tylenol) tablet 650 mg Start: 05-28-2024 End: 06-01-2024 take 1 tablet by mouth every six hours as needed for pain and fever acetaminophen (Tylenol) tablet 650 mg Start: 04-28-2024 End: 04-28-2024 take 1 tablet by mouth every six hours as needed for pain and fever acetaminophen (Tylenol) tablet 650 mg Start: 03-06-2024 End: 03-07-2024 take 1 tablet by mouth every six hours as needed for pain and fever acetaminophen (Tylenol) tablet 650 mg Start: 02-29-2024 End: 03-01-2024 take 1 tablet by mouth every six hours as needed for pain and fever acetaminophen (Tylenol) tablet 650 mg amoxicillin 875 mg / clavulanate 125 mg oral tablet (5 sources) Penicillin-class Antibacterial Start: 10-13-2024 End: 10-26-2024 take 1 tablet by mouth twice daily in the evening amoxicillin-clavulanate (AUGMENTIN) 875-125 MG per tablet Take 1 Tablet by mouth 2 times daily for 5 days. 10 Tablet 10/13/2024 5:32 PM EDT 10/13/2024 10/26/2024 Discontinued Start: 10-04-2024 End: 10-11-2024 take 1 tablet by mouth twice daily in the evening amoxicillin-clavulanate (AUGMENTIN) 875-125 MG per tablet Take 1 Tablet by mouth 2 times daily for 5 days. 10 Tablet 10/06/2024 2:58 PM EDT 10/06/2024 10/11/2024 Active aspirin 81 mg chewable tablet (2 sources) Platelet Aggregation Inhibitor, Nonsteroidal Anti-inflammatory Drug Start: 04-28-2024 End: 04-28-2024 take 324 mg by mouth once 324 mg, Oral, Once, On Fri04/28/24 at 0255, For 1 dose benzonatate 100 mg oral capsule (3 sources) Non-narcotic Antitussive Start: 10-13-2024 End: 10-26-2024 take 1 capsule by mouth three times daily as needed for cough benzonatate (Tessalon Perles) 100 MG capsule Take 1 Capsule by mouth 3 times daily as needed for Cough. 60 Capsule 10/13/2024 5:32 PM EDT 10/13/2024 10/26/2024 Discontinued 10 ml calcium chloride 100 mg/ml prefilled syringe (2 sources) Start: 06-13-2024 End: 06-13-2024 1 g, IntraVENous, Once, On Fri06/13/24 at 1620, For 1 dose 100 ml calcium gluconate 20 mg/ml injection (2 sources) Start: 08-20-2024 End: 08-20-2024 take 2000 mg intravenously every four hours carvedilol 25 mg oral tablet (20 sources) alpha-Adrenergic Jerome, beta-Adrenergic Jerome Start: 07-14-2024 End: 07-14-2024 take 3.125 mg by mouth twice daily at mealtime 3.125 mg, Oral, 2 times daily with meals, First dose on Fri07/14/24 at 0800 Start: 05-29-2024 End: 07-16-2025 Start: 04-28-2024 End: 04-28-2025 take 12.5 mg by mouth twice daily at mealtime 12.5 mg, Oral, 2 times daily with meals, First dose (after last modification) on Benita 07/15/24 at 1700 Start: 03-06-2024 End: 03-07-2025 take 6.25 mg by mouth twice daily at mealtime 6.25 mg, Oral, 2 times daily with meals, First dose (after last modification) on Fri07/14/24 at 1700 cefepime (MAXIPIME) 2,000 mg in sterile water for injection 20 mL IV push (2 sources) Start: 10-17-2024 End: 10-17-2024 2,000 mg, Intravenous, STAT, 1 dose, On 10/17/24 at 2152 Start: 09-30-2024 End: 09-30-2024 2,000 mg, Intravenous, ONCE, 1 dose, On Benita 09/30/24 at 1835 cefTRIAXone 1000 mg injection (1 source) Cephalosporin Antibacterial Start: 10-01-2024 End: 10-04-2024 1,000 mg, Intravenous, EVERY 24 HOURS ANTIBIOTIC, 4 doses, First dose on Fri10/01/24 at 1000, Last dose on Fri10/04/24 at 1000 Cerovite Jr chew tab (1 source) Start: 10-25-2024 take 1 tablet by mouth once daily 1 Tablet, Oral, DAILY, First dose on Fri10/25/24 at 1730, Until Discontinued cholecalciferol 0.025 mg oral tablet (20 sources) Vitamin D Start: 10-25-2024 take 2000 [IU] by mouth once daily 2,000 Units, Oral, DAILY, First dose on Fri10/25/24 at 1730, Until Discontinued Start: 06-02-2024 End: 08-31-2024 take 2 tablets by mouth once daily cholecalciferol (Vitamin D-3) 50 MCG (2000 UT) tablet Take 2 tablets (4,000 Units) by mouth daily. 180 tablet 06/02/2024 08/20/2024 Discontinued (Stop taking at discharge) Start: 05-31-2024 End: 08-20-2024 take 4000 [IU] by mouth once daily 4,000 Units, Oral, Daily, First dose on Fri07/24/24 at 0900 take 1 capsule by mo uth once daily Cholecalciferol 50 MCG (2000 UT) CAPS Take 1 Capsule by mouth daily. Active ciprofloxacin 750 mg oral tablet (1 source) Quinolone Antimicrobial Start: 10-20-2024 End: 10-25-2024 take 750 mg by mouth twice daily 750 mg, Oral, 2 TIMES DAILY, First dose on Fri10/20/24 at 1130, Until Discontinued clopidogrel 75 mg oral tablet (20 sources) [id number] Platelet Inhibitor Start: 02-29-2024 End: 08-30-2024 take 75 mg by mouth once daily 75 mg, Oral, Daily, First dose on 06/14/24 at 0900 diatrizoate meglumine-sodium (Gastrografin) 66-10 % solution 30 mL (2 sources) Start: 06-13-2024 End: 06-14-2024 30 mL, Oral, Once, On 06/13/24 at 1830, For 1 dose, 1. INPATIENTS 30ML GASTROGRAFIN MIXED IN 32OZ OF WATER-DRINK HALF 2 HRS BEFORE AND THE HALF 1HR BEFORE EXAM. diclofenac sodium 0.01 mg/mg topical gel (1 source) Nonsteroidal Anti-inflammatory Drug Start: 10-05-2024 2 g, Topical, EVERY 6 HOURS PRN, Starting on Fri10/05/24 at 1413, Until Discontinued, R chest wall pain 250 ml DOBUTamine 4 mg/ml injection (1 source) beta-Adrenergic Agonist Start: 10-01-2024 End: 10-05-2024 2.5 mcg/kg/min 76.2 kg (2.8575 mL/hr, rounded to 2.9 mL/hr), Intravenous, CONTINUOUS, Starting on Fri10/01/24 at 2030, Until Fri10/05/24 at 1413 doxycycline hyclate 100 mg oral tablet (7 sources) Tetracycline-class Drug Start: 10-13-2024 End: 10-26-2024 take 1 tablet by mouth twice daily in the evening doxycycline (VIBRA-TABS) 100 MG tablet Take 1 Tablet by mouth 2 times daily for 5 days. 10 Tablet 10/13/2024 5:32 PM EDT 10/13/2024 10/26/2024 Discontinued Start: 10-06-2024 End: 10-11-2024 take 1 tablet by mouth twice daily in the evening doxycycline (VIBRA-TABS) 100 MG tablet Take 1 Tablet by mouth 2 times daily for 5 days. 10 Tablet 10/06/2024 2:58 PM EDT 10/06/2024 10/11/2024 Active Start: 10-05-2024 End: 10-09-2024 100 mg, Oral, 2 TIMES DAILY, 8 doses, First dose (after last modification) on Fri10/05/24 at 0900, Last dose on Fri10/08/24 at 2100 Start: 10-01-2024 End: 10-05-2024 100 mg, Oral, 2 TIMES DAILY, 9 doses, First dose on Fri10/01/24 at 0900, Last dose on Fri10/05/24 at 0900 Start: 09-30-2024 End: 09-30-2024 take 1 dose by mouth once 100 mg, Oral, ONCE, 1 dose, On Benita 09/30/24 at 1835 0.8 ml enoxaparin sodium 100 mg/ml prefilled syringe (12 sources) Low Molecular Weight Heparin Start: 06-15-2024 End: 06-16-2024 inject 1 dose by subcutaneous injection once in the morning 80 mg (rounded from 78.5 mg = 1 mg/kg 78.5 kg), SubCUTAneous, Once, On 06/16/24 at 1615, For 1 dose, Give one time dose at time patient is due to have Eliquis ( holding eliquis for heart cath tomorrow). Give NO dose in AM 06/17. , Indication of Use: Treatment-DVT/PE Start: 06-13-2024 End: 06-14-2024 inject 40 mg by subcutaneous injection every twenty-four hours 40 mg, SubCUTAneous, Every 24 hours scheduled (Daily), First dose on 06/13/24 at 1710, Indication of Use: Prophylaxis-DVT/PE, Indications: Prophylaxis of Venous Thromboembolism Start: 06-03-2024 End: 06-03-2024 80 mg (rounded from 81.6 mg = 1 mg/kg 81.6 kg), SubCUTAneous, Once, On Benita 06/03/24 at 2020, For 1 dose, Indication of Use: Treatment-DVT/PE Start: 03-06-2024 End: 03-07-2024 inject 40 mg by subcutaneous injection every twenty-four hours 40 mg, SubCUTAneous, Every 24 hours scheduled (Daily), First dose on 03/06/24 at 1000, Indication of Use: Prophylaxis-DVT/PE, Indications: Prophylaxis of Venous Thromboembolism Start: 02-29-2024 End: 03-01-2024 inject 40 mg by subcutaneous injection every twenty-four hours 40 mg, SubCUTAneous, Every 24 hours scheduled (Daily), First dose on 02/29/24 at 0900, Indication of Use: Prophylaxis-DVT/PE, Indications: Prophylaxis of Venous Thromboembolism ergocalciferol 1.25 mg oral capsule (2 sources) Provitamin D2 Compound Start: 08-20-2024 End: 08-20-2024 2 ml fentaNYL 0.05 mg/ml injection (1 source) Opioid Agonist Start: 09-30-2024 End: 09-30-2024 take 1 dose intravenously once 50 mcg, Intravenous Push, ONCE, 1 dose, On [place] 09/30/24 at 1656 Start: 09-30-2024 End: 09-30-2024 take 1 dose intravenously once 50 mcg, Intravenous Pus h, ONCE, 1 dose, On [place] 09/30/24 at 1656 folic acid 1 mg oral tablet (7 sources) Start: 09-12-2024 End: 10-26-2024 take 1 tablet by mouth once daily in the evening folic acid 1 MG tablet Take 1 Tablet by mouth daily. 30 Tablet 3 09/11/2024 1:22 PM EDT 09/12/2024 10/26/2024 Discontinued 2 ml furosemide 10 mg/ml injection (20 sources) Loop Diuretic Start: 10-02-2024 End: 10-04-2024 80 mg, Intravenous, 2 TIMES DAILY DIURETIC, First dose on 10/02/24 at 2030, Until Discontinued Start: 10-01-2024 End: 10-01-2024 take 1 dose intravenously once 20 mg, Intravenous Push , ONCE, 1 dose, On Fri10/01/24 at 0130 Start: 08-11-2024 End: 08-11-2024 Start: 07-30-2024 End: 07-30-2025 take 1 tablet by mouth twice daily furosemide (Lasix) 40 MG tablet Take 1 tablet (40 mg) by mouth 2 times daily. 60 tablet 11 07/30/2024 12:47 PM EST 07/30/2024 08/05/2024 Discontinued Start: 07-29-2024 40 mg, IntraVE Nous, Once, On [place] 07/29/24 at 1545, For 1 dose Start: 07-29-2024 End: 07-30-2024 40 mg, IntraVENous, 2 times daily, First dose on Fri07/30/24 at 1415 Start: 07-24-2024 End: 07-29-2024 80 mg, IntraVENous, 2 times daily, First dose (after last modification) on 07/24/24 at 2100 Start: 07-24-2024 End: 07-24-2024 40 mg, IntraVENous, Daily, F irst dose on 07/24/24 at 0900 Start: 07-11-2024 40 mg, IntraVE Nous, Once, On 07/11/24 at 2105, For 1 dose Start: 07-04-2024 End: 07-05-2024 80 mg, IntraVENous, 2 times daily, First dose (after last modification) on 07/04/24 at 1700, On hold since Fri07/05/2024 at 0638 until manually unheld Start: 07-03-2024 80 mg, IntraVE Nous, Once, On 07/03/24 at 2145, For 1 dose Start: 07-01-2024 End: 07-16-2025 take 1 tablet by mouth once daily furosemide (Lasix) 2 0 MG tablet Take 1 tablet (20 mg) by mouth daily. 90 tablet 3 07/01/2024 07/05/2024 Discontinued (Stop taking at discharge) Start: 06-13-2024 End: 06-15-2024 60 mg, IntraVENous, 2 times daily, First dose on 06/13/24 at 2100 Start: 06-13-2024 End: 06-13-2024 40 mg, IntraVENous, Once, On 06/13/24 at 1620, For 1 dose Start: 06-01-2024 End: 07-21-2025 take 1 tablet by mouth once daily furosemide (Lasix) 4 0 MG tablet Take 1 tablet (40 mg) by mouth daily. 07/21/2024 07/30/2024 Discontinued Start: 05-28-2024 End: 05-29-2024 40 mg, IntraVENous, Administ er over 2 Minutes, 2 times daily, First dose on 05/28/24 at 2100 Start: 04-28-2024 End: 04-28-2024 Start: 04-28-2024 End: 04-28-2024 60 mg, IntraVENous, 2 times daily, First dose (after last modification) on 04/28/24 at 0900 Start: 04-28-2024 60 mg, IntraVE Nous, Once, On Fri04/28/24 at 0535, For 1 dose Start: 03-07-2024 End: 03-07-2025 take 1 tablet by mouth once daily furosemide (Lasix) 8 0 MG tablet Take 1 tablet (80 mg) by mouth daily. 30 tablet 11 03/07/2024 06/01/2024 Discontinued (Stop taking at discharge) Start: 03-07-2024 End: 03-07-2024 take 80 mg by mouth once daily 80 mg, Oral, Daily, Fir st dose on 03/07/24 at 1215 Start: 03-06-2024 End: 03-07-2024 40 mg, IntraVENous, 2 times daily, First dose (after last modification) on 03/06/24 at 1330 Start: 03-06-2024 40 mg, IntraVE Nous, Once, On 03/06/24 at 0005, For 1 dose Start: 02-28-2024 End: 02-28-2024 60 mg, IntraVENous, Once, On 02/28/24 at 1900, For 1 dose 250 ml heparin sodium, porcine 100 unt/ml injection (4 sources) Unfractionated Heparin, Anti-coagulant Start: 07-11-2024 End: 07-11-2024 4,000 Units, IntraVENous, Once, On 07/11/24 at 2145, For 1 dose, Initial one time bolus Start: 07-11-2024 End: 07-12-2024 5-30 Units/kg/hr 80.5 kg (4. 025-24.15 mL/hr, rounded to 4-24.2 mL/hr), IntraVENous, Continuous, Starting on [place] 07/11/24 at 2145, LOW Dose Heparin Weight Based Dosing (CAD/STEMI/NSTEMI/AFIB/ECMO) >>>>Initial dose: 12 units/kg/hr 95.9 Hold heparin for 60 min Decrease infusion by 2 units/kg/hr - notify prescriber; Check aPTT: 6 hours after initiation and 6 hours after every dose change - every 12 hrs x 1 day after 2 consecutive therapeutic aPTT - daily after every 12 hrs x 1 day is complete. hydrALAZINE hydrochloride 25 mg oral tablet (20 sources) Arteriolar Vasodilator Start: 10-01-2024 100 mg, Oral, THREE TIMES DAILY 0900, 1300, 1700, First dose on Fri10/01/24 at 0900, Until Discontinued Start: 08-12-2024 End: 08-12-2024 Start: 08-12-2024 End: 08-19-2024 Start: 08-12-2024 End: 08-12-2024 Start: 07-03-2024 End: 07-05-2024 take 100 mg by mouth three times daily 100 mg, Oral, 3 times daily, First dose on 07/03/24 at 2145 Start: 07-01-2024 End: 07-01-2025 take 1 tablet by mouth three times daily in the evening hydrALAZINE (APRESOLINE) 100 MG tablet Take 1 Tablet by mouth 3 times Daily. 60 Tablet 3 09/11/2024 1:22 PM EDT 09/11/2024 Suspended Start: 06-21-2024 End: 09-19-2024 take 2 tablets by mouth three times daily hydrALAZINE (Apresoline) 25 MG tablet Take 2 tablets (50 mg) by mouth 3 times daily. 270 tablet 06/21/2024 07/01/2024 Discontinued (Dose adjustment) Start: 06-17-2024 End: 06-21-2024 take 50 mg by mouth three times daily 50 mg, Oral, 3 times daily, First dose (after last modification) on [place] 06/17/24 at 1400 Start: 05-28-2024 End: 08-30-2024 take 25 mg by mouth three times daily 25 mg, Oral, 3 times daily, First dose on 06/13/24 at 2100 Start: 02-28-2024 End: 03-01-2024 take 5 mg intravenously every four hours as needed for hypertension 5 mg, IntraVENous, Every 4 hours PRN, high blood pressure, sbp greater than 160, Starting on 02/28/24 at 2144 1 ml HYDROmorphone hydrochloride 0.2 mg/ml prefilled syringe (1 source) Opioid Agonist Start: 10-01-2024 End: 10-01-2024 take 0.2 mg intravenously once 0.2 mg, Intravenous Push, ONCE, 1 dose, On Fri10/01/24 at 0030 Start: 10-01-2024 End: 10-01-2024 take 0.2 mg intravenously once 0.2 mg, Intravenous Pus h, ONCE, 1 dose, On Fri10/01/24 at 0030 iopamidol (Isovue-370) 76 % injection 75 mL (8 sources) Start: 07-11-2024 End: 07-11-2024 take 75 mL intravenously once as needed 75 mL, IntraVENous, IMG once PRN, contrast, Starting on Fri07/11/24 at 2229, For 1 dose Start: 04-28-2024 End: 04-28-2024 take 75 mL intravenously once as needed 75 mL, IntraVENous, IMG once PRN, contrast, Starting on Fri04/28/24 at 0410, For 1 dose Start: 03-05-2024 End: 03-05-2024 take 75 mL intravenously once as needed 75 mL, IntraVENous, IMG once PRN, contrast, Starting on Fri03/05/24 at 2341, For 1 dose Start: 02-28-2024 End: 02-28-2024 take 75 mL intravenously once as needed 75 mL, IntraVENous, IMG once PRN, contrast, Starting on 02/28/24 at 1915, For 1 dose 1 ml ketorolac tromethamine 15 mg/ml cartridge (2 sources) Nonsteroidal Anti-inflammatory Drug, Cyclooxygenase Inhibitor Start: 04-28-2024 End: 04-28-2024 15 mg, IntraVENous, Once, On Fri04/28/24 at 0320, For 1 dose lidocaine 0.04 mg/mg medicated patch (8 sources) Antiarrhythmic, Amide Local Anesthetic Start: 09-30-2024 End: 10-26-2024 1 Patch, Transdermal, EVERY 24 HOURS, 3 doses, First dose on Fri10/18/24 at 0600, Last dose on Fri10/20/24 at 0600 linezolid 600 mg oral tablet (1 source) Oxazolidinone Antibacterial Start: 10-19-2024 End: 10-25-2024 600 mg, Oral, 2 TIMES DAILY, 14 doses, First dose on Fri10/19/24 at 1000, Last dose on Fri10/25/24 at 2100 LORazepam 1 mg oral tablet (2 sources) Benzodiazepine Start: 02-28-2024 End: 02-28-2024 take 1 mg by mouth once 1 mg, Oral, Once, On 02/28/24 at 2050, For 1 dose magnesium hydroxide 80 mg/ml oral suspension (2 sources) Start: 06-16-2024 End: 06-21-2024 take 8 [oz_av] by mouth once daily 30 mL, Oral, Nightly, First dose on Fri06/16/24 at 2100, Follow dose with 8 oz of water. 50 ml magnesium sulfate 40 mg/ml injection (2 sources) Start: 08-17-2024 End: 08-17-2024 melatonin 3 mg oral tablet (2 sources) Start: 08-10-2024 End: 08-20-2024 metoclopramide 5 mg oral tablet (1 source) Dopamine-2 Receptor Antagonist Start: 09-17-2024 take 1 tablet by mouth four times daily at bedtime as needed metoclopramide (REGLAN) 5 MG tablet Take 1 Tablet by mouth 4 times daily (before meals and at bedtime). Prn 40 Tablet 1 09/17/2024 Suspended 1 ml morphine sulfate 4 mg/ml cartridge (18 sources) Opioid Agonist Start: 08-09-2024 End: 08-10-2024 Start: 07-23-2024 End: 07-23-2024 take 1 dose by mouth every hour 4 mg, IntraVENous, Onc e, On Fri07/23/24 at 2050, For 1 dose, If oral and IV narcotics ordered, use oral first and only use IV if oral is ineffective or cannot take oral. Do Not give oral and IV within 1 hour of each other unless specifically ordered. Start: 07-11-2024 End: 07-11-2024 take 1 dose by mouth every hour 4 mg, IntraVENous, Onc e, On 07/11/24 at 2105, For 1 dose, If oral and IV narcotics ordered, use oral first and only use IV if oral is ineffective or cannot take oral. Do Not give oral and IV within 1 hour of each other unless specifically ordered. Start: 07-03-2024 End: 07-03-2024 take 1 dose by mouth every hour 4 mg, IntraVENous, Onc e, On 07/03/24 at 0930, For 1 dose, If oral and IV narcotics ordered, use oral first and only use IV if oral is ineffective or cannot take oral. Do Not give oral and IV within 1 hour of each other unless specifically ordered. Start: 06-13-2024 End: 06-13-2024 take 1 dose by mouth every hour 2 mg, IntraVENous, Onc e, On 06/13/24 at 1430, For 1 dose, If oral and IV narcotics ordered, use oral first and only use IV if oral is ineffective or cannot take oral. Do Not give oral and IV within 1 hour of each other unless specifically ordered. Start: 04-28-2024 End: 04-28-2024 take 2 mg intravenously every four hours as needed for pain 2 mg, IntraVENous, Every 4 hours PRN, moderate pain (4-6), Starting on Fri04/28/24 at 1004, If oral and IV narcotics ordered, use oral first and only use IV if oral is ineffective or cannot take oral. Do Not give oral and IV within 1 hour of each other unless specifically ordered. Start: 04-28-2024 End: 04-28-2024 take 1 dose by mouth every hour 4 mg, IntraVENous, Onc e, On Fri04/28/24 at 0545, For 1 dose, If oral and IV narcotics ordered, use oral first and only use IV if oral is ineffective or cannot take oral. Do Not give oral and IV within 1 hour of each other unless specifically ordered. mupirocin 0.02 mg/mg topical ointment (2 sources) RNA Synthetase Inhibitor Antibacterial Start: 07-03-2024 End: 07-05-2024 1 Application, Nasal, 2 times daily, First dose on Fri07/03/24 at 2145, For 5 days, Indications: MRSA Nasal Decolonization 1 ml naloxone hydrochloride 0.4 mg/ml injection (2 sources) Opioid Antagonist Start: 04-28-2024 End: 04-28-2024 0.4 mg, IntraVENous, Every 5 min PRN, opioid reversal, respiratory depression, Starting on Fri04/28/24 at 1005, +++ For RR nitroglycerin 0.4 mg sublingual tablet (5 sources) Nitrate Vasodilator Start: 10-18-2024 0.4 mg, [place] blingual, EVERY 5 MIN PRN, Starting on Fri10/18/24 at 0506, Until Discontinued, Chest pain Start: 04-28-2024 End: 04-28-2024 0.4 mg, SubLINGual, Every 5 min PRN, chest pain, Starting on Fri04/28/24 at 1004, May administer up to 3 doses per episode. Start: 03-05-2024 End: 03-05-2024 0.4 mg, SubLINGual, Once, On Fri03/05/24 at 2205, For 1 dose, May administer up to 3 doses per episode. Start: 03-05-2024 End: 03-05-2024 0.4 mg, SubLINGual, Once, On Fri03/05/24 at 2205, For 1 dose, May administer up to 3 doses per episode. 100 ml sodium nitroprusside 0.5 mg/ml injection (2 sources) Start: 07-04-2024 End: 07-05-2024 0.3-3 mcg/kg/min 82.2 kg (2.9592-29.592 mL/hr, rounded to 2.96-29.59 mL/hr), IntraVENous, Continuous, Starting on Fri07/04/24 at 0930, If ordered with a ranged dose and not at goal parameter(s), initiate at lowest dose in ordered range. Titrate by 0.5 mcg/kg/min every 5 minutes as needed to reach and maintain goal. Contact prescriber if unable to maintain goal at max ordered dose., Titrate Infusion? Yes, Initial Infusion Dose: 0.25 mcg/kg/min, Goal of Therapy is: MAP, MAP Goal: Other, Goal MAP less than: 65-75, Contact Provider if: SBP less than 90 mmHg 2 ml ondansetron 2 mg/ml injection (20 sources) Serotonin-3 Receptor Antagonist Start: 09-30-2024 End: 10-01-2024 take 4 mg intravenously every six hours as needed for nausea 4 mg, Intravenous Push, EVERY 6 HOURS PRN, Starting on Fri09/30/24 at 2238, Until Fri10/01/24 at 0020, Nausea, Vomiting Start: 08-25-2024 End: 08-25-2024 4 mg, IntraVENous, Once, On Fri08/25/24 at 0210, For 1 dose Start: 08-23-2024 End: 08-30-2024 take 1 tablet by mouth every eight hours as needed for nausea and vomiting ondansetron ODT (Zofran-ODT) 4 MG disintegrating tablet Take 1 tablet (4 mg) by mouth every 8 hours as needed for nausea or vomiting for up to 7 days. 20 tablet 08/23/2024 08/30/2024 Active Start: 08-23-2024 End: 08-23-2024 take 4 mg by mouth once 4 mg, Oral, Once, On 08/01 at 0630, For 1 dose Start: 08-09-2024 End: 08-10-2024 Start: 07-23-2024 End: 07-23-2024 4 mg, IntraVENous, Once, On Fri07/23/24 at 2135, For 1 dose Start: 07-11-2024 End: 07-11-2024 4 mg, IntraVENous, Once, On 07/11/24 at 2105, For 1 dose Start: 07-03-2024 End: 07-03-2024 4 mg, IntraVENous, Once, On 07/03/24 at 0930, For 1 dose Start: 06-13-2024 End: 06-13-2024 8 mg, IntraVENous, Once, On 06/13/24 at 1430, For 1 dose Start: 04-28-2024 End: 04-28-2024 4 mg, IntraVENous, Once, On Fri04/28/24 at 0255, For 1 dose ondansetron ODT (Zofran-ODT) disintegrating tablet 4 mg (16 sources) Start: 07-24-2024 End: 07-30-2024 take 1 tablet by mouth every eight hours as needed for nausea and vomiting ondansetron ODT (Zofran-ODT) disintegrating tablet 4 mg Start: 07-12-2024 End: 07-16-2024 take 1 tablet by mouth every eight hours as needed for nausea and vomiting ondansetron ODT (Zofran-ODT) disintegrating tablet 4 mg Start: 07-03-2024 End: 07-05-2024 take 1 tablet by mouth every eight hours as needed for nausea and vomiting ondansetron ODT (Zofran-ODT) disintegrating tablet 4 mg Start: 06-13-2024 End: 06-21-2024 take 1 tablet by mouth every eight hours as needed for nausea and vomiting ondansetron ODT (Zofran-ODT) disintegrating tablet 4 mg Start: 05-28-2024 End: 06-01-2024 take 1 tablet by mouth every eight hours as needed for nausea and vomiting ondansetron ODT (Zofran-ODT) disintegrating tablet 4 mg Start: 04-28-2024 End: 04-28-2024 take 1 tablet by mouth every eight hours as needed for nausea and vomiting ondansetron ODT (Zofran-ODT) disintegrating tablet 4 mg Start: 03-06-2024 End: 03-07-2024 take 1 tablet by mouth every eight hours as needed for nausea and vomiting ondansetron ODT (Zofran-ODT) disintegrating tablet 4 mg Start: 02-29-2024 End: 03-01-2024 take 1 tablet by mouth every eight hours as needed for nausea and vomiting ondansetron ODT (Zofran-ODT) disintegrating tablet 4 mg oxyCODONE hydrochloride 5 mg oral tablet (1 source) Opioid Agonist Start: 10-02-2024 End: 10-05-2024 5 mg, Oral, EVERY 6 HOURS PRN, Starting on 10/02/24 at 0030, Until 10/05/24 at 1242, Severe Pain (pain score 7,8,9,10) perflutren protein A microsphere (Optison) 3 mL in sodium chloride (PF) 0.9 % 10 mL IV syringe (2 sources) Start: 02-29-2024 End: 02-29-2024 0-10 mL, IntraVENous, IMG once PRN, other, Suboptimal echo image, Starting on 02/29/24 at 0830, For 1 dose, CV Procedural Medications, Administer via slow IVP for suboptimal echocardiogram enhancement. May administer as divided doses to reach optimal image enhancement polyethylene glycol 3350 94911 mg powder for oral solution (16 sources) Osmotic Laxative Start: 08-10-2024 End: 08-20-2024 take 17 g by mouth every twenty-four hours as needed for constipation Start: 07-24-2024 End: 07-30-2024 take 17 g by mouth every twenty-four hours as needed for constipation Start: 07-12-2024 End: 07-16-2024 take 17 g by mouth every twenty-four hours as needed for constipation Start: 06-13-2024 End: 06-21-2024 take 17 g by mouth every twenty-four hours as needed for constipation 17 g, Oral, Daily PRN, constipation, Starting on 06/13/24 at 1704, 1st line for treatment of constipation - give scheduled if no bowel movement in past 24 hours. Start: 05-28-2024 End: 06-01-2024 take 17 g by mouth every twenty-four hours as needed for constipation Start: 04-28-2024 End: 04-28-2024 take 17 g by mouth every twenty-four hours as needed for constipation Start: 03-06-2024 End: 03-07-2024 take 17 g by mouth every twenty-four hours as needed for constipation 17 g, Oral, Daily PRN, constipation, Starting on 03/06/24 at 0955, 1st line for treatment of constipation - give scheduled if no bowel movement in past 24 hours. Start: 02-29-2024 End: 03-01-2024 take 17 g by mouth every twenty-four hours as needed for constipation 17 g, Oral, Daily PRN, constipation, Starting on 02/29/24 at 0035, 1st line for treatment of constipation - give scheduled if no bowel movement in past 24 hours. potassium chloride 1.33 meq/ml oral solution (20 sources) Start: 10-20-2024 End: 10-20-2024 take 1 dose by mouth once 20 mEq, Oral, ONCE, 1 dose, On Fri10/20/24 at 1100 Start: 08-14-2024 End: 08-20-2024 Start: 07-30-2024 End: 08-29-2024 take 2 tablets by mouth once daily potassium chloride CR (Klor-Con M20) 20 MEQ ER tablet Take 2 tablets (40 mEq) by mouth daily. Do not crush or chew. 4 tablet 3 07/30/2024 12:47 PM EST 07/30/2024 08/29/2024 Active Start: 07-30-2024 End: 07-30-2024 take 2 tablets by mouth three times daily potassium chloride CR (Klor-Con M20) 20 MEQ ER tablet Take 2 tablets (40 mEq) by mouth 3 times daily for 5 days. Do not crush or chew. 4 tablet 1 07/30/2024 07/30/2024 Discontinued Start: 07-30-2024 End: 07-30-2024 40 mEq, Oral, 3 times daily, First dose (after last reorder) on Fri07/30/24 at 0900, For 3 doses, Best given with food and plenty of water to minimize gastric irritation. Do not crush or chew. Start: 07-29-2024 End: 07-29-2024 40 mEq, Oral, Once, On [place] at 0915, For 1 dose, Best given with food and plenty of water to minimize gastric irritation. Do not crush or chew. Start: 07-04-2024 End: 07-04-2024 take 1 [oz_av] by mouth once 40 mEq, Oral, Once, On [place] n 07/04/24 at 1400, For 1 dose, Dissolve each packet in 4 ounces of water = 5 mEq per 1 oz fluid., Indications: Hypokalemia rosuvastatin calcium 10 mg o ral tablet (20 sources) HMG-CoA Reductase Inhibitor Start: 04-28-2024 End: 04-28-2024 Start: 04-28-2024 End: 04-28-2024 Start: 03-06-2024 End: 03-07-2025 take 1 tablet by mouth once daily rosuvastatin (Crestor) 10 MG tablet Take 1 tablet (10 mg) by mouth Nightly. 30 tablet 11 03/07/2024 06/01/2024 Discontinued (Stop taking at discharge) sacubitril 97 mg / valsartan 103 mg oral tablet (15 sources) Angiotensin 2 Receptor Jerome Start: 07-15-2024 End: 08-10-2025 take 97-103 mg by mouth twice daily in the evening sacubitril-valsartan (Entresto) 97-103 MG tablet Take 1 tablet by mouth 2 times daily. 60 tablet 12 07/16/2024 3:52 PM EST 07/16/2024 07/30/2024 Discontinued (Stop taking at discharge) Start: 07-13-2024 End: 07-15-2024 1 tablet, Oral, 2 times christiano y, First dose on Fri07/13/24 at 2100, Contraindicated in combination with LUCRECIA inhibitors. Ensure a minimum of 36 hours between any LUCRECIA inhibitor dose and sacubitril-valsartan. Start: 07-13-2024 End: 07-13-2024 1 tablet, Oral, 2 times christiano y, First dose on Fri07/13/24 at 0900, Contraindicated in combination with LUCRECIA inhibitors. Ensure a minimum of 36 hours between any LUCRECIA inhibitor dose and sacubitril-valsartan. sennosides, long term 8.6 mg oral tablet (1 source) Start: 10-18-2024 take 8.6 mg by mouth at bedtime 8.6 mg, Oral, AT BEDTIME, First dose on 10/18/24 at 2200, Until Discontinued sodium bicarbonate 650 mg oral tablet (20 sources) Start: 06-01-2024 End: 08-30-2024 take 2 tablets by mouth twice daily sodium bicarbonate 650 MG tablet Take 2 tablets (1,300 mg) by mouth 2 times daily. 360 tablet 06/01/2024 08/20/2024 Discontinued (Stop taking at discharge) Start: 05-31-2024 End: 08-20-2024 Start: 05-29-2024 End: 05-31-2024 take 650 mg by mouth twice daily 650 mg, Oral, 2 times daily, First dose on 05/29/24 at 0900 50 ml sodium chloride 9 mg/ml injection (9 sources) Start: 09-30-2024 End: 09-30-2024 take 1 dose intravenously every hour 500 mL, at 9,999 mL/hr, Intravenous, FLUID BOLUS, 1 dose, On [place] 09/30/24 at 1946 Start: 06-17-2024 End: 06-17-2024 3 mL/kg/hr 78.5 kg (235.5 mL /hr), IntraVENous, Administer over 1 Hours, Continuous, Starting on [place] 06/17/24 at 0900, Preprocedure, Administer for 1 hour at calculated rate then reduce to KVO if procedure is delayed Start: 05-28-2024 End: 05-28-2024 1,000 mL, IntraVENous, at 1, 000 mL/hr, Administer over 1 Hours, Once, On Fri05/28/24 at 0855, For 1 dose Start: 04-28-2024 End: 04-28-2024 1,000 mL, IntraVENous, at 1, 000 mL/hr, Administer over 1 Hours, Once, On Fri04/28/24 at 0320, For 1 dose sodium zirconium cyclosilicate 41080 mg powder for oral suspension (2 sources) Start: 06-13-2024 End: 06-13-2024 10 g, Oral, Once, On 06/13/24 at 1620, For 1 dose, Empty entire contents of packet(s) into 45 mL water. Stir well and administer immediately. If powder remains, rinse glass with water and administer. torsemide 20 mg oral tablet (12 sources) Loop Diuretic Start: 04-28-2024 End: 04-28-2025 take 2 tablets by mouth once daily torsemide (Demadex) 20 MG tablet Take 2 tablets (40 mg) by mouth daily. 180 tablet 3 04/28/2024 06/01/2024 Discontinued (Stop taking at discharge) 2 ml trimethobenzamide hydrochloride 100 mg/ml injection (1 source) Antiemetic Start: 10-01-2024 inject 200 mg by intramuscular injection every six hours as needed 200 mg, Intramuscular, EVERY 6 HOURS PRN, Starting on Fri10/01/24 at 2354, Until Discontinued, Nausea vancomycin (VANCOCIN) 1,500 mg in sodium chloride 0.9 % 250 mL (V2B) (1 source) Start: 10-17-2024 End: 10-17-2024 1,500 mg, Intravenous, STAT, 1 dose, On Fri10/17/24 at 2152 (4 sources) Start: 08-10-2024 End: 08-20-2024 take 4 mg by mouth every eight hours as needed for nausea and vomiting [Order 1 Start] Name: ondansetron ODT (Zofran-ODT) disintegrating tablet 4 mg Signed Summary: 4 mg, Oral, Every 8 hours PRN, nausea, vomiting, Starting on Fri08/10/24 at 2042, 1st Line. If inadequate response within 60 minutes, proceed to next-line agent or contact provider if no further options ordered. Patient should allow tablet to dissolve on tongue. Do not remove from blister pack until just before administering. [Order 1 End] [Order 2 Start] Name: ondansetron (Zofran) injection 4 mg Signed Summary: 4 mg, IntraVENous, Every 6 hours PRN, nausea, vomiting, Starting on Fri08/10/24 at 204, 1st Line. Give IV if patient is unable to take orally. If inadequate response within 60 minutes, proceed to next-line agent or contact provider if no further options ordered. [Order 2 End] Start: 08-10-2024 End: 08-20-2024 take 650 mg by mouth every six hours as needed for pain and fever [Order 1 Start] Name: acetaminophen (Tylenol) tablet 650 mg Signed Summary: 650 mg, Oral, Every 6 hours PRN, mild pain (1-3), fever, For temp greater than 100.4 F (38 C), Starting on Fri08/10/24 at 2041, Maximum dose of acetaminophen is 4000 mg from all sources in 24 hours. [Order 1 End] [Order 2 Start] Name: acetaminophen (Tylenol) suppository 650 mg Signed Summary: 650 mg, Rectal, Every 6 hours PRN, mild pain (1-3), fever, For temp greater than 100.4 F (38 C), Starting on Fri08/10/24 at 2041, Administer if oral route cannot be used. Maximum dose of acetaminophen is 4000 mg from all sources in 24 hours. [Order 2 End] Problems Active Problems Problem Classification Problem Date Documented Da te Episodic/Chronic Abdominal pain (8 sources) Abdominal pain; Translations: [Unspecified abdominal pain] Onset: 5 07-11-2024 Episodic Acute myocardial infarction (14 sources) Myocardial infarction; Translations: [Non-ST elevation (NSTEMI) myocardial infarction] Onset: 5 07-11-2024 Chronic Biliary tract disease (6 sources) Acute cholecystitis without calculus; Translations: [Acute cholecystitis] Onset: 4 06-01-2024 Episodic Chronic kidney disease (20 sources) Chronic kidney disease; Translations: [Chronic kidney disease, unspecified] Onset: 4 06-08-2024 Chronic Chronic kidney disease (7 sources) Chronic kidney disease; Translations: [Chronic kidney disease, stage 3b (HCC)] Onset: 4 Conduction disorders (11 sources) Non-specific intraventricular conduction delay; Translations: [Nonspecific intraventricular block] Onset: 5 10-02-2024 Chronic Congestive heart failure; nonhypertensive (20 sources) Congestive heart failure; Translations: [Heart failure, unspecified] Onset: 4 Resolved: 5 02-28-2024 Chronic Congestive heart failure; nonhypertensive (4 sources) Congestive heart failure; nonhypertensive; Translations: [Heart failure with reduced ejection fraction (HFrEF)] Essential hypertension (20 sources) Hypertensive disorder; Translations: [Essential (primary) hypertension] Onset: 4 02-28-2024 Chronic Hypertension with complications and secondary hypertension (4 sources) Cardiorenal syndrome; Translations: [Hypertensive heart and chronic kidney disease with heart failure and stage 1 through stage 4 chronic kidney disease, or unspecified chronic kidney disease] Onset: 5 07-11-2024 Chronic Nutritional deficiencies (20 sources) Malnutrition (calorie); Translations: [Moderate protein-calorie malnutrition] Onset: 4 05-29-2024 Chronic Other and ill-defined heart disease (1 source) Cardiomegaly; Translations: [Cardiomegaly] 10-22-2024 Chronic Other and ill-defined heart disease (1 source) Heart disease; Translations: [Heart disease, unspecified] Onset: 5 01-19-2025 Chronic Other circulatory disease (4 sources) H/O: heart failure; Translations: [Personal history of other diseases of the circulatory system] 07-03-2024 Episodic Other circulatory disease (3 sources) Personal history of other diseases of the circulatory system; Translations: [Personal history of other diseases of the circulatory system] Onset: 5 Episodic Other circulatory disease (2 sources) Other specified symptoms and signs involving the circulatory and respiratory systems; Translations: [Other specified symptoms and signs involving the circulatory and respiratory systems] Onset: 4 Episodic Other connective tissue disease (2 sources) Other specified soft tissue disorders; Translations: [Other specified soft tissue disorders] Onset: 4 Episodic Other diseases of kidney and ureters (1 source) Kidney disease; Translations: [Disorder of kidney and ureter, unspecified] Onset: 5 01-19-2025 Episodic Other gastrointestinal disorders (2 sources) Ascites; Translations: [Other ascites] 01-04-2025 Episodic Other liver diseases (15 sources) Cirrhosis of liver; Translations: [Unspecified cirrhosis of liver] Onset: 5 10-21-2024 Chronic Other liver diseases (2 sources) Enzyme level - finding; Translations: [Transaminitis] 07-03-2024 Episodic Other liver diseases (2 sources) Abnormal levels of other serum enzymes; Translations: [Abnormal levels of other serum enzymes] Onset: 4 Episodic Other liver diseases (6 sources) Increased bilirubin level; Translations: [Unspecified jaundice] 01-04-2025 Episodic Other liver diseases (2 sources) Unspecified jaundice; Translations: [Unspecified jaundice] Onset: 5 Episodic Other liver diseases (1 source) Scleral icterus; Translations: [Unspecified jaundice] Onset: 5 01-21-2025 Episodic Other lower respiratory disease (2 sources) Hypoxia; Translations: [Hypoxemia] 03-06-2024 Episodic Other lower respiratory disease (2 sources) Cough; Translations: [Acute cough] 04-28-2024 Episodic Other lower respiratory disease (2 sources) Dyspnea on exertion; Translations: [Shortness of breath] 04-28-2024 Episodic Other lower respiratory disease (3 sources) Shortness of breath; Translations: [Shortness of breath] Onset: Episodic Other lower respiratory disease (1 source) Cough; Translations: [Cough, unspecified type] 10-13-2024 Episodic Other nutritional; endocrine; and metabolic disorders (14 sources) Hypomagnesemia; Translations: [Hypomagnesemia] Onset: 5 10-21-2024 Chronic Other nutritional; endocrine; and metabolic disorders (1 source) Other disorders of bilirubin metabolism; Translations: [Bilirubinemia] Onset: 5 Chronic Other screening for suspected conditions (not mental disorders or infectious disease) (15 sources) D-dimer above reference range; Translations: [Other specified abnormal findings of blood chemistry] Onset: 4 02-28-2024 Episodic Kiera-; endo-; and myocarditis; cardiomyopathy (except that caused by tuberculosis or sexually transmitted disease) (2 sources) Cardiomyopathy; Translations: [Other cardiomyopathies] Onset: 5 01-21-2025 Chronic Phlebitis; thrombophlebitis and thromboembolism (20 sources) Acute deep vein thrombosis of lower limb; Translations: [Acute embolism and thrombosis of unspecified deep veins of unspecified lower extremity] Onset: 5 07-24-2024 Episodic Pulmonary heart disease (6 sources) Chronic pulmonary embolism; Translations: [Chronic pulmonary embolism] Onset: 5 07-16-2024 Chronic Residual codes; unclassified (4 sources) Edema of left lower limb; Translations: [Localized edema] 06-03-2024 Episodic Residual codes; unclassified (20 sources) Noncompliance with treatment; Translations: [Noncompliance] Onset: 4 06-19-2024 Episodic Residual codes; unclassified (2 sources) Bilateral lower limb edema; Translations: [Localized edema] 07-23-2024 Episodic Residual codes; unclassified (2 sources) Localized edema; Translations: [Localized edema] Onset: Episodic Residual codes; unclassified (2 sources) Left care setting having refused treatment; Translations: [Procedure and treatment not carried out because of patient's decision for unspecified reasons] Onset: 5 08-26-2024 Episodic Unclassified (1 source) Elevation of levels of liver transaminase levels; Translations: [Elevation of levels of liver transaminase levels] Onset: 5 Unclassified (1 source) Acidosis, unspecified; Translations: [Acidosis, unspecified] Onset: 4 Unclassified (1 source) Acute cough; Translations: [Acute cough] Onset: 4 Unclassified (1 source) Cough, unspecified; Translations: [Cough, unspecified] Onset: 5 Past or Other Problems Problem Classification Problem Date Documented Date Episodic/Chronic Acute and unspecified renal failure (20 sources) Acute renal failure syndrome; Translations: [Acute kidney failure, unspecified] Onset: 07-03-2024 Resolved: 08-23-2024 07-03-2024 Episodic Administrative/social admission (7 sources) Other problems related to medical facilities and other health care; Translations: [Other specified conditions influencing health status] Onset: 08-23-2024 08-23-2024 Episodic Cardiac dysrhythmias (20 sources) Sinus tachycardia; Translations: [Tachycardia, unspecified] Onset: 06-19-2024 06-19-2024 Episodic Fluid and electrolyte disorders (20 sources) Metabolic acidosis; Translations: [Metabolic acidosis] Onset: 05-28-2024 Resolved: 08-05-2024 05-28-2024 Episodic Miscellaneous mental health disorders (7 sources) Flat affect; Translations: [Other symptoms and signs involving emotional state] Onset: 08-23-2024 08-23-2024 Episodic Nausea and vomiting (2 sources) Nausea, vomiting and diarrhea; Translations: [Nausea with vomiting, unspecified] Onset: 09-18-2024 09-17-2024 Episodic Nonspecific chest pain (12 sources) Chest pain; Translations: [Chest pain, unspecified] Onset: 02-28-2024 02-28-2024 Episodic Other circulatory disease (20 sources) Pulmonary venous congestion; Translations: [Other specified symptoms and signs involving the circulatory and respiratory systems] Onset: 04-28-2024 04-28-2024 Episodic Other circulatory disease (20 sources) H/O: heart disorder; Translations: [Personal history of other diseases of the circulatory system] Onset: 06-19-2024 06-19-2024 Episodic Other connective tissue disease (20 sources) Swelling of lower limb; Translations: [Other specified soft tissue disorders] Onset: 06-13-2024 06-16-2024 Episodic Other liver diseases (20 sources) Elevated liver enzymes level; Translations: [Abnormal levels of other serum enzymes] Onset: 06-08-2024 06-08-2024 Episodic Other lower respiratory disease (20 sources) Dyspnea; Translations: [Shortness of breath] Onset: 02-28-2024 02-28-2024 Episodic Other lower respiratory disease (3 sources) Orthopnea; Translations: [Orthopnea] Onset: 04-28-2024 04-28-2024 Episodic Other lower respiratory disease (1 source) Orthopnea; Translations: [Orthopnea] Onset: 04-28-2024 Episodic Other lower respiratory disease (2 sources) Hypoxemia; Translations: [Hypoxemia] Onset: 03-05-2024 Episodic Other upper respiratory infections (4 sources) Sore throat symptom; Translations: [Acute pharyngitis, unspecified] Onset: 04-28-2024 04-28-2024 Episodic Pleurisy; pneumothorax; pulmonary collapse (4 sources) Pleural effusion; Translations: [Pleural effusion, not elsewhere classified] Onset: 03-05-2024 03-06-2024 Episodic Pneumonia (except that caused by tuberculosis or sexually transmitted disease) (20 sources) Right lower zone pneumonia; Translations: [Pneumonia, unspecified organism] Onset: 09-30-2024 09-30-2024 Episodic Pulmonary heart disease (20 sources) Pulmonary embolism; Translations: [Other pulmonary embolism without acute cor pulmonale] Resolved: 08-04-2024 08-04-2024 Episodic Residual codes; unclassified (20 sources) At risk of apnea; Translations: [Other specified personal risk factors, not elsewhere classified] Onset: 05-31-2024 07-23-2024 Episodic Residual codes; unclassified (20 sources) History of clinical finding in subject; Translations: [H/O noncompliance with medical treatment, presenting hazards to health] Onset: 06-19-2024 08-05-2024 Episodic Residual codes; unclassified (19 sources) Left against medical advice; Translations: [Procedure and treatment not carried out because of patient's decision for other reasons] Onset: 08-04-2024 08-05-2024 Episodic Residual codes; unclassified (19 sources) Healthcare knowledge finding; Translations: [Other specified personal risk factors, not elsewhere classified] Onset: 08-05-2024 08-05-2024 Episodic Residual codes; unclassified (7 sources) Procedure and treatment not carried out because of patient's decision for other reasons; Translations: [Surgical or other procedure not carried out because of patient's decision] Onset: 08-09-2024 08-23-2024 Episodic Residual codes; unclassified (7 sources) Recommendation refused by patient; Translations: [Procedure and treatment not carried out because of patient's decision for unspecified reasons] Onset: 08-23-2024 08-23-2024 Episodic Shock (20 sources) Cardiogenic shock; Translations: [Cardiogenic shock] Onset: 09-07-2024 Resolved: 10-21-2024 10-02-2024 Episodic Unclassified (1 source) Elevation of levels of liver transaminase levels; Translations: [Elevation of levels of liver transaminase levels] Onset: 07-03-2024 Unclassified (1 source) Acidosis, unspecified; Translations: [Acidosis, unspecified] Onset: 05-28-2024 Unclassified (1 source) Acute cough; Translations: [Acute cough] Onset: 04-28-2024 Results Test Name Value Interpretation Reference Range Facility [facility] 01-21-2025 [facility] HNO ID: [id number] Author: MELISSA ORDAZ APRN.WHITING MACHINE OPERATOR Service: Cardiovascular Medicine Author Type: Nurse Practitioner Type: Discharge Summary Filed: 01/21/2025 12:42 Note Text: Attestation signed by Maged Correa MD at 01/21/2025 3:48 PM [facility] STAFF PHYSICIAN NOTE OF PERSONAL INVOLVEMENT IN CARE IMPRESSION: Patient is a 44 year-old man with a history of NICM c/b HFrEF (15%), LBBB, hypertension, hyperlipidemia, CKD, and cirrhosis who presents with decompensated heart failure. Patient Active Hospital Problem List: Acute on chronic HFrEF (heart failure with reduced ejection fraction) ([facility]) Date Noted: 10/21/2024 History of left bundle branch block (LBBB) Date Noted: 06/19/2024 Essential hypertension Date Noted: 06/08/2024 CKD (chronic kidney disease) Date Noted: 06/08/2024 Personal history of DVT (deep vein thrombosis) Date Noted: 01/20/2025 NICM (nonischemic cardiomyopathy) ([facility]) Date Noted: 01/21/2025 Scleral icterus Date Noted: 01/21/2025 PLAN: Pt admitted to stepdown. Started on IV lasix. Pt refused hydralazine, reported he felt unwell on it and stopped it. EP was consulted for consideration of ICD placement. As he has not been on GDMT for 3 continuous months, has not had regular follow up, and QRS <150ms He is currently not a candidate for ICD. He can be reconsidered for ICD in 3months if on GDMT and has cardiac follow up. An attempt was made to add ARB however the patient refused. He reported that he was not here to start any new medications. Stated that he was here only for defibrillator. IV access was lost and patient refused to have anyone placed new IV. He is discharged as he refuses medical therapy. I have reviewed the documentation obtained and documented by the Nurse Practitioner and I have personally performed the substantive portion of the visit which includes the medical decision making. I have discussed the case and management of the patient's care. Discharge Management: I personally spent 35 minutes in the discharge management of this patient. STAFF PHYSICIAN: Maged Correa MD DATE OF SERVICE: January 21, 2025 TIME OF SERVICE: 3:47 PM Department of Cardiovascular Medicine Discharge Summary PATIENT NAME: Carlo Medina ADMISSION DATE: 01/19/2025 DISCHARGE DATE: 01/21/2025 Attending Physician: Maged Correa MD Code Status: Not on file Primary Service: A, Linda Clinical Air Motor Repairer/Pa Admission Diagnosis: Acute decompensated heart failure (HCC) [I50.9] Discharge Diagnosis: Acute on Chronic HFrEF Secondary Diagnoses: Patient Active Hospital Problem List: Acute on chronic HFrEF (heart failure with reduced ejection fraction) (HCC) Date Noted: 10/21/2024 History of left bundle branch block (LBBB) Date Noted: 06/19/2024 Essential hypertension Date Noted: 06/08/2024 CKD (chronic kidney disease) Date Noted: 06/08/2024 Personal history of DVT (deep vein thrombosis) Date Noted: 01/20/2025 NICM (nonischemic cardiomyopathy) (HCC) Date Noted: 01/21/2025 Scleral icterus Date Noted: 01/21/2025 Reason for Hospitalization: Carlo Medina is a 44 year old male with pmhx of HFrEF, CKD 3b, cirrhosis, HTN, LBBB, DVT who presented to the ER with complaint of SOB/CARRERA, orthopnea, abdominal bloating, lower extremity edema. Hospital course: Pt admitted to stepdown. Started on IV lasix. Pt refused hydralazine, reported he felt unwell on it and stopped it. EP was consulted for consideration of ICD placement. As he has not been on GDMT for 3 continuous months, has not had regular follow up, and QRS <150ms He is currently not a candidate for ICD. He can be reconsidered for ICD in 3months if on GDMT and has cardiac follow up. An attempt was made to add ARB however the patient refused. He reported that he was not here to start any new medications. Stated that he was here only for defibrillator. IV access was lost and patient refused to have anyone placed new IV. He is discharged as he refuses medical therapy. PHYSICAL EXAM: 01/20/256 01/21/25 0215 01/21/25 0608 01/21/25 0922 BP: 115/84 123/86 127/94 Pulse: 95 99 88 Resp: 18 18 18 Temp: 36.4 ?C (97.6 ?F) 36.1 ?C (97 ?F) 36.5 ?C (97.7 ?F) TempSrc: Oral Axillary Oral SpO2: 93% 99% 98% 97% Weight: 77.1 kg (169 lb 15.6 oz) Height: Consults: Electrophysiology Major Procedure or Operation: None Other Procedures, Testing AND Radiology: Echo Patient Condition at Discharge: Stable Disposition: Home with Self Care Information Provided to the Patient: Patient given copy of After Visit Summary which included activity instructions, diet instructions, wound care instructions, medication instructions and follow up appointment ALLERGIES Allergen Reactions Sacubitril-Valsartan Other: See Comments, Vomiting Discharge Medications: Medication List (more content not included)... Normal [facility] ECHOon 01-21-2025 Echocardiography Echocardiography Report: Transthoracic Echo [facility] Bedside Date of service: 01/21/2025 9:06:51 AM COOLER INSTALLER Ordering physician: LA YUN Exam indication: Evaluation of known heart failure Symptom(s): Shortness of breath Technologist: Faye Saab Interpreting physician: Matthew Yang MD PATIENT: Name: CARLO MEDINA : 1980 Age: 44 years Gender: M History of heart failure with hospitalization. Primary rhythm: sinus. Secondary rhythm: PAC. Height: 185.42 cm BSA: 2.00 m Weight: 77.80 kg BMI: 22.6 kg/m Heart rate 115 bpm Blood pressure 123/86 mmHg Technically difficult exam due to uncooperative patient. Color Doppler was utilized to interrogate the cardiac valves assessed and spectral Doppler was utilized to determine the flow velocities and pressure gradients reported in this exam. Myocardial strain analysis was performed in this exam to aid in the assessment of cardiac function. MEASUREMENTS: Value Indexed Normal Max aortic dimension 3.6 cm Ao < 3.8 Left atrial volume 119 ml (biplane A-L) 59 ml/m John <= 34 LV ID (diastole) 6.6 cm (2D) 3.27 cm/m LV ID (systole) 6.0 cm (2D) 3.00 cm/m IVS, leaflet tips 1.1 cm (2D) Posterior wall thickness 1.3 cm (2D) Left ventricular mass 382 g (2D) 191 g/m Global peak long strain -4.4 % LV stroke volume 39 ml (2D 4-ch.) LV end diastolic volume 249 ml (2D 4-ch.) 124.3 ml/m 34<=EDVi<75 LV end systolic volume 210 ml (2D 4-ch.) 105.0 ml/m Ejection Fraction 15 % (2D 4-ch.) EF > 52 FINDINGS: LEFT VENTRICLE The left ventricle is severely dilated. Left ventricular systolic function is severely decreased. Global LV myocardial strain is abnormal. Left ventricular diastolic function was not evaluated due to >2+ MR. Wall Motion: The inferior septum, mid inferolateral segment, and mid anterolateral segment are akinetic. The entire anterior wall, anterior septum, entire inferior wall, basal inferolateral segment, apical lateral segment, basal anterolateral segment, and apex are severely hypokinetic. RIGHT VENTRICLE The right ventricle is dilated. Right ventricular systolic function is moderately to severely decreased. RV systolic tissue Doppler velocity is 14.2 cm/s. Tricuspid annular displacement is 2.5 cm. Estimated right ventricular systolic pressure is 55 mmHg consistent with moderate pulmonary hypertension. Estimated right atrial pressure is 15 mmHg based on IVC assessment. LEFT ATRIUM The left atrial cavity is severely dilated. RIGHT ATRIUM The right atrial cavity is severely dilated. Inferior Vena Cava: The inferior vena cava appears dilated measuring 3.4 cm. The vessel decreases less than 50 percent with inspiration. MITRAL VALVE There is moderate (2+ - 3+) holosystolic mitral valve regurgitation due to apical tethering of normal mitral leaflet caused by LV enlargement. There is a posteriorly directed regurgitant jet. There is mild thickening. There is mild calcification. Regurgitant orifice area (PISA) is 0.22 cm . TRICUSPID VALVE There is severe (3+ - 4+) tricuspid valve regurgitation caused by annular dilatation. There is mild thickening. The hepatic venous pattern showed reversed systolic flow. AORTIC VALVE There is trace (trace - 1+) aortic valve regurgitation. Tricuspid aortic valve. There is mild thickening. PULMONIC VALVE The pulmonic valve cusps are structurally normal. There is trace (trace - 1+) pulmonic valve regurgitation. AORTA The visualized aorta is normal in size. Measurements - Sinus: 3.0 cm. Mid ascending aorta 3.6 cm. INTERATRIAL SEPTUM There is no evidence of intracardiac shunting as detected by Doppler. INTERVENTRICULAR SEPTUM There is no flow through the interventricular septum as detected by Doppler. PERICARDIUM There is a small pericardial effusion adjacent to the right atrium. CONCLUSIONS: - Technically difficult exam due to uncooperative patient. - Exam indication: Evaluation of known heart failure - The left ventricle is severely dilated. Left ventricular systolic function is severely decreased. EF = 15 5% (2D 4-ch.) - The right ventricle is dilated. Right ventricular systolic function is moderately to severely decreased. - The left atrial cavity is severely dilated. - The right atrial cavity is severely dilated. - There is moderate (2+ - 3+) mitral holosystolic valve regurgitation due to apical tethering of normal mitral leaflet caused by LV enlargement. Regurgitant orifice area (PISA) is 0.22 cm . - There is severe (3+ - 4+) tricuspid valve regurgitation caused by annular dilatation. - Estimated right ventricular systolic pressure is 55 mmHg consistent with moderate pulmonary hypertension. Estimated right atrial pressure is 15 mmHg based on IVC assessment. - The patient has not had a prior CC echocardiographic exam for comparison. (more content not included)... Normal [facility] NURSING PROGon 01-21-2025 NURSING PROG HNO ID: [id number] Author: TAQUERIA VELEZ, CRISTINE Service: Nursing Author Type: Registered Nurse Type: Nursing Progress Note Filed: 01/21/2025 11:18 Note Text: Pt declined resuming Losartan. Pt states, I am fine with just taking the meds I take at home. I only came here for the defibrillator, not to take new meds. RN explained to pt EP recommendation is to optimize GDMT prior to considering HRIS ANALYST-D placement. Pt is agreeable to IV diuretics, but not agreeable to new meds at this time. Pt also lost IV access, and he is a hard stick. Labs have not been drawn. Due to last potassium level being low, lasix is being held until we get blood work and IV access. IV ultrasound certified RN attempting with an ultrasound machine. 11:17 am Patient refuses for RNs to put IV anywhere feasible. Refuses to let another ultrasound IV certified nurse come in. Melissa Ordaz, CURRICULUM DIRECTOR, WHITING MACHINE OPERATOR notified. Normal [facility] NURSING PROG HNO ID: [id number] Author: YASMEEN MEJIA RN Service: Nursing Author Type: Registered Nurse Type: Nursing Progress Note Filed: 01/21/2025 07:57 Note Text: K 3.3. CRISTINE Mejia covered the potassium according to the nomogram (see MAR). Recheck at 0200. When RN went in to collect labs and routine morning labs, pt stated that the RN can only use the IV to collect the blood. IV doesn't draw back enough blood for labs. CRISTINE Mejia explained to patient about being unable to collect blood for labs and the alternatives are to stick him or put in another IV. Pt told RN I'm not letting anyone poke me. CRISTINE Mejia educated patient about the importance of checking potassium level due to him receiving IV lasix and having a low potassium level. Pt verbalizes that he understands the potential of cardiac arrhythmias and other events. CRISTINE Mejia paged MD Cora Sánchez about situation. 0640: Pt declining multiple attempts of obtaining labs. Educated provided. Reach out to MD Cora Sánchez, jeannie to move 0600 IVP lasix to 0900 in order to check potassium when pt is agreeable [facility] PT EDon 01-21-2025 PT ED HNO ID: [id number] Author: GABY GUIDRY [facility] Service: Pharmacy Author Type: Pharmacist Type: Patient Education Filed: 01/21/2025 12:57 Note Text: NO HF MEDICATION EDUCATION Patient Name:Kristy Medina Service Date: 01/21/2025 Service Time: 12:57 PM Heart Failure Education Counseling not indicated Patient Refused Current Inpatient Medications: Current Facility-Administered Medications Medication Dose Route Frequency apixaban 5 mg tab(s) (ELIQUIS) 5 mg ORAL BID isosorbide dinitrate 20 mg tab(s) (ISORDIL) 20 mg ORAL TID furosemide 80 mg injection (LASIX) 80 mg INTRAVENOUS q 12 H 6a/6p acetaminophen 1,000 mg tab(s) (TYLENOL) 1,000 mg ORAL q 8 H PRN melatonin 3 mg tab(s) 3 mg ORAL DAILY (8 PM) polyethylene glycol 3350 17 g packet 17 g ORAL DAILY NaCl 0.9% iv flush bag 20 mL INTRAVENOUS PRN sodium chloride 0.9 % (flush) 2-10 mL (BD POSIFLUSH) 2-10 mL INTRAVENOUS DIRECTED PRN And perflutren lipid microspheres 1.1 mg/mL 1.3 mL injection (DEFINITY) 1.3 mL INTRAVENOUS DIRECTED PRN magnesium sulfate 1 g in D5W 100 mL 1 g INTRAVENOUS PRN Or magnesium sulfate iv piggyback in sterile water 2 g 50 mL 2 g INTRAVENOUS PRN potassium chloride ER 10-60 mEq tab(s) (KLOR-CON M10) 10-60 mEq ORAL PRN losartan 50 mg tab(s) (COZAAR) 50 mg ORAL DAILY potassium chloride ER 60 mEq tab(s) (KLOR-CON) 60 mEq ORAL ONCE FURTHER RECOMMENDATIONS (IF ANY): None SIGNATURE: Gaby Guidry [facility] PAGER: [phone] Normal [facility] Progress Noteson 01-21-2025 Manager Women Authentication Interface Message Text Normal [employer] CBC panel Auto (Bld)on 01-20 Erythrocyte distribution width (RBC) [Ratio] 15.8 % High 11.5-15.0 [facility] Comment on above: Order Comment: Speci men Type: BLOOD SPECIMENOrdering Facility: [facility] Address: [address] [place] [address] Performed By: #### 5 8410-2 ####[facility] [id number] [place] [address] [place] Hematocrit (Bld) [Volume fraction] 39.5 % Normal 39.0-51.0 [facility] Comment on above: Order Comment: Speci men Type: BLOOD SPECIMENOrdering Facility: [facility] Address: [address] [place] [address] Performed By: #### 5 8410-2 ####[facility] [id number] [place] [address] [place] Hemoglobin (Bld) [Mass/Vol] 12.9 g/dL Low 13.0-17.0 [facility] Comment on above: Order Comment: Speci men Type: BLOOD SPECIMENOrdering Facility: [facility] Address: [address] [place] [address] Performed By: #### 5 8410-2 ####[facility] [id number] [place] [address] [place] MCH (RBC) [Entitic mass] 33.4 pg Normal 26.0-34.0 [facility] Comment on above: Order Comment: Speci men Type: BLOOD SPECIMENOrdering Facility: [facility] Address: [address] [place] [address] Performed By: #### 5 8410-2 ####[facility] [id number] [place] [address] [place] MCHC (RBC) [Mass/Vol] 32.7 g/dL Normal 30.5-36.0 [facility] Comment on above: Order Comment: Speci men Type: BLOOD SPECIMENOrdering Facility: [facility] Address: [address] [place] [address] Performed By: #### 5 8410-2 ####[facility] [id number] [place] [address] [place] MCV (RBC) [Entitic vol] 102.3 fL High 80.0-100.0 [facility] Comment on above: Order Comment: Speci men Type: BLOOD SPECIMENOrdering Facility: [facility] Address: [address] [place] [address] Performed By: #### 5 8410-2 ####[facility] [id number] [place] [address] [place] Nucleated RBC (Bld) [#/Vol] 0.02 10*3/uL High <0.01 [facility] Comment on above: Order Comment: Speci men Type: BLOOD SPECIMENOrdering Facility: [facility] Address: [address] [place] [address] Performed By: #### 5 8410-2 ####[facility] [id number] [facility] [place] [address] [place] Platelet mean volume (Bld) [Entitic vol] 10.4 fL Normal 9.0-12.7 [facility] Comment on above: Order Comment: Speci men Type: BLOOD SPECIMENOrdering Facility: [facility] Address: [address] [place] [address] Performed By: #### 5 8410-2 ####[facility] [id number] [place] [address] [place] Platelets (Bld) [#/Vol] 287 10*3/uL Normal 150-400 [facility] Comment on above: Order Comment: Speci men Type: BLOOD SPECIMENOrdering Facility: [facility] Address: [address] [place] [address] Performed By: #### 5 8410-2 ####[facility] [id number] [place] [address] [place] RBC (Bld) [#/Vol] 3.86 10*6/uL Low 4.20-6.00 [facility] Comment on above: Order Comment: Speci men Type: BLOOD SPECIMENOrdering Facility: [facility] Address: [address] [place] [address] Performed By: #### 5 8410-2 ####[facility] [id number] [place] [address] [place] WBC (Bld) [#/Vol] 6.85 10*3/uL Normal 3.70-11.00 [facility] Comment on above: Order Comment: Speci men Type: BLOOD SPECIMENOrdering Facility: [facility] Address: [address] [place] [address] Performed By: #### 5 8410-2 ####[facility] [id number] KIRK BONILLA [id number] [place] [address] [place] CONSULTon 01-20-2025 CONSULT HNO ID: [id number] Author: ROOPA TAVERA DO Service: Cardiovascular Medicine Author Type: Fellow Type: Consults Filed: 01/20/2025 18:24 Note Text: Attestation signed by Roopa Tavera DO at 01/20/2025 6:24 PM [facility] STAFF PHYSICIAN NOTE OF PERSONAL INVOLVEMENT IN CARE IMPRESSION: Patient is a 44 year old male with history of HF related to NICM LVEF 15% not on stable GDMT, we were consulted regarding primary prevention ICD. PLAN: I met with Carlo and we discussed the potential role for an ICD, I explained the significance of being on maximal medical therapy for a period of 3 months or more prior to consideration of an ICD. We discussed his limitations with medications and follow up and relates challenges coming to [place] for visits. We discussed if his HF medications are maximized and his LVEF remains reduced (below 35%) when reassessed after three months then we would could proceed with an ICD. I explained the purpose of an ICD and explained the implant procedure, risks,benefits and limitations, oysterman implications and follow up and addressed his questions. His recent ECG shows a NIVC with QRSd <150msec and would not be likely to benefit from a HRIS ANALYST device, this would certainly need reassessed prior to primary prevention ICD implant. I have reviewed the documentation obtained and documented by the Fellow and I have personally performed a face to face assessment of the patient and have personally participated in the reardon components of the visit which includes medical decision making.. I have discussed the case and management of the patient's care. 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 First diagnosed with HFrEF 02/2024 during an admission for shortness of breath - Multiple admissions over the last 10 months (at least 10 with numerous ED presentations) for decompensated HF, pneumonia, and others - Concern for medication non adherence with many mentions of refusing care while inpatient including IV infusions while in the CICU in 09/2024 - C 05/2025 without significant CAD. RHC at that time with a CI 1.5 and elevated filling pressures - Has seen a general radar engineer at [facility], last visit 05/2024 and a HF Bending Shed Worker (Dr. Astudillo - 07/2024) with some concern for ongoing medication nonadherence. No outpatient follow up with Cardiology since July though with frequent ED visits and admissions PAST MEDICAL HISTORY No past medical history on file. No past surgical history on file. FAMILY HISTORY No family history on file. SOCIAL HISTORY HOME MEDICATIONS apixaban (ELIQUIS) 5 mg tab(s)Take 5 mg by mouth.Disp: Rfl: isosorbide dinitrate (ISORDIL) 20 mg tabletTake 20 mg by mouth three times a day.Disp: Rfl: hydrALAZINE (APRESOLINE) 100 mg tabletTake 1 tablet by mouth three times a day.Disp: Rfl: losartan (COZAAR) 50 mg tabletTake 50 mg by mouth once daily.Disp: Rfl: INPATIENT MEDICATIONS Current Facility-Administered Medications Medication Dose Route Frequency apixaban 5 mg tab(s) (ELIQUIS) 5 mg ORAL BID hydrALAZINE 100 mg tab(s) (APRESOLINE) 100 mg ORAL TID isosorbide dinitrate 20 mg tab(s) (ISORDIL) 20 mg ORAL TID furosemide 80 mg injection (LASIX) 80 mg INTRAVENOUS q 12 H 6a/6p acetaminophen 1,000 mg tab(s) (TYLENOL) 1,000 mg ORAL q 8 H PRN melatonin 3 mg tab(s) 3 mg ORAL DAILY (8 PM) polyethylene glycol 3350 17 g packet 17 g ORAL DAILY NaCl 0.9% iv flush bag 20 mL INTRAVENOUS PRN sodium chloride 0.9 % (flush) 2-10 mL (BD POSIFLUSH) 2-10 mL INTRAVENOUS DIRECTED PRN And perflutren lipid microspheres 1.1 mg/mL 1.3 mL injection (DEFINITY) 1.3 mL INTRAVENOUS DIRECTED PRN magnesium sulfate 1 g in D5W 100 mL 1 g INTRAVENOUS PRN Or magnesium sulfate iv piggyback in sterile water 2 g 50 mL 2 g INTRAVENOUS PRN potassium chloride ER 10-60 mEq tab(s) (KLOR-CON M10) 10-60 mEq ORAL PRN hydrALAZINE 50 mg tab(s) (APRESOLINE) 50 mg ORAL ONCE ALLERGIES ALLERGIES Allergen Reactions Sacubitril-Valsartan Other: See Comments, Vomiting COMPLETE REVIEW OF SYSTEMS All systems reviewed and are negative except for stated in the HPI. PHYSICAL EXAM BP 103/77 Pulse 97 Temp (more content not included)... Normal [facility] Comprehensive metabolic 2000 panelon 01-20-2025 Albumin [Mass/Vol] 3.4 g/dL Low 3.9-4.9 [facility] Comment on above: Order Comment: Speci men Type: BLOOD SPECIMENOrdering Facility: [facility] Address: [address] [place] [address] Performed By: #### 2 4323-8, 3016-3, 2132-9, 35480-8, 22313-6, 2276-4 ####[facility] [id number] [address] [place] [address] [place] ALP [Catalytic activity/Vol] 459 U/L High 38-113 [facility] Comment on above: Order Comment: Speci men Type: BLOOD SPECIMENOrdering Facility: [facility] Address: [address] [place] [address] Performed By: #### 2 4323-8, 3016-3, 2131-9, 72618-2, 63890-2, 6-4 ####[facility] [id number] [address] [place] [address] [place] ALT [Catalytic activity/Vol] 23 U/L Normal 10-54 [facility] Comment on above: Order Comment: Speci men Type: BLOOD SPECIMENOrdering Facility: [facility] Address: [address] [place] [address] Performed By: #### 2 4323-8, 3016-3, 2131-9, 54175-2, 85055-9, 6-4 ####[facility] [id number] [place] [id number] [place] Anion gap [Moles/Vol] 18 mmol/L High 8-15 [facility] Comment on above: Order Comment: Speci men Type: BLOOD SPECIMENOrdering Facility: [facility] Address: [address] [place] [address] Performed By: #### 2 4323-8, 3016-3, 9, 13282-4, 70522-2, 6-4 ####[facility] [id number] [address] [address] [place] AST [Catalytic activity/Vol] 21 U/L Normal 14-40 [facility] Comment on above: Order Comment: Speci men Type: BLOOD SPECIMENOrdering Facility: [facility] Address: [address] [place] [address] Performed By: #### 2 4323-8, 3016-3, 2131-9, 78798-1, 98446-1, 2275-4 ####[facility] [id number] [address] [address] [place] Bilirubin [Mass/Vol] 5.1 mg/dL High 0.2-1.3 [facility] Comment on above: Order Comment: Speci men Type: BLOOD SPECIMENOrdering Facility: [facility] Address: [address] [place], [place] [address] Performed By: #### 2 4323-8, 3016-3, 2131-9, 26767-5, 27640-0, 2275-4 ####[facility] [id number] [address] [address] [place] Calcium [Mass/Vol] 9.4 mg/dL Normal 8.5-10.2 [facility] Comment on above: Order Comment: Speci men Type: BLOOD SPECIMENOrdering Facility: [facility] Address: [address] [place], [place] [address] Performed By: #### 2 4323-8, 3016-3, 2131-9, 85950-5, 68130-4, 2275-4 ####[facility] [id number] [place] [id number] [place] Chloride [Moles/Vol] 101 mmol/L Normal 98-107 [facility] Comment on above: Order Comment: Speci men Type: BLOOD SPECIMENOrdering Facility: [facility] Address: [address] [place], [place] [address] Performed By: #### 2 4323-8, 3016-3, 2131-9, 24619-1, 84599-2, 2275-4 ####[facility] [id number] [place] [id number] [place] CO2 [Moles/Vol] 22 mmol/L Normal 22-30 [facility] Comment on above: Order Comment: Speci men Type: BLOOD SPECIMENOrdering Facility: [facility] Address: [address] [place] [address] Performed By: #### 2 4323-8, 3016-3, 9, 87237-5, 62439-0, 2275-4 ####[facility] [id number] [address] [address] [place] Creatinine [Mass/Vol] 2.46 mg/dL High 0.73-1.22 [facility] Comment on above: Order Comment: Speci men Type: BLOOD SPECIMENOrdering Facility: [facility] Address: [address] [place], [place] [address] Performed By: #### 2 4323-8, 6-3, 9, 88146-0, 08024-5, 2275-4 ####[facility] [id number] [address] [address] [place] eGFRcr SerPlBld CKD-EPI 2020 32 mL/min/1.73m??? Low >=60 [facility] Comment on above: Order Comment: Speci men Type: BLOOD SPECIMENOrdering Facility: [facility] Address: [address] [place], [place] [address] Result Comment: Ella mated Glomerular Filtration Rate (eGFR) is calculated using the 2020 CKD-EPI creatinine equation. This equation utilizes serum creatinine, sex, and age as parameters. The creatinine assay has traceable calibration to isotope dilution-mass spectrometry. Refer to KDIGO guidelines for clinical interpretation. In patients with unstable renal function, e.g. those with acute kidney injury, the eGFR may not accurately reflect actual GFR. Performed By: #### 2 4323-8, 3016-3, 9, 30769-0, 04571-8, 2275-4 ####[facility] [id number] [address] [address] [place] Glucose [Mass/Vol] 102 mg/dL High 74-99 [facility] Comment on above: Order Comment: Speci men Type: BLOOD SPECIMENOrdering Facility: [facility] Address: [address] [place], [place] [address] Result Comment: The [place] Diabetes Association (ADA) provides guidance for cutoff values for fasting glucose and random glucose. The ADA defines fasting as no caloric intake for at least 8 hours. Fasting plasma glucose results between 100 to 125 mg/dL indicate increased risk for diabetes (prediabetes). Fasting plasma glucose results greater than or equal to 126 mg/dL meet the criteria for diagnosis of diabetes. In the absence of unequivocal hyperglycemia, results should be confirmed by repeat testing. In a patient with classic symptoms of hyperglycemia or hyperglycemic crisis, random plasma glucose results greater than or equal to 200 mg/dL meet the criteria for diagnosis of diabetes. Reference: Standards of Medical Care in Diabetes 2016, [place] Diabetes Association. Diabetes Care. 2016.39(Suppl 1). Performed By: #### 2 4323-8, 3016-3, 2131-9, 70112-1, 39536-7, 6-4 ####[facility] [id number] [place] [id number] [place] Potassium [Moles/Vol] 3.8 mmol/L Normal 3.7-5.1 [facility] Comment on above: Order Comment: Speci men Type: BLOOD SPECIMENOrdering Facility: [facility] Address: [address] [place] [address] Performed By: #### 2 4323-8, 3016-3, 2131-9, 16385-3, 41865-5, 6-4 ####[facility] [id number] [place] [id number] [place] Protein [Mass/Vol] 6.8 g/dL Normal 6.3-8.0 [facility] Comment on above: Order Comment: Speci men Type: BLOOD SPECIMENOrdering Facility: [facility] Address: [address] [place] [address] Performed By: #### 2 4323-8, 3016-3, 2131-9, 78632-5, 24768-5, 6-4 ####[facility] [id number] [address] [place] [address] [place] Sodium [Moles/Vol] 141 mmol/L Normal 136-144 [facility] Comment on above: Order Comment: Speci men Type: BLOOD SPECIMENOrdering Facility: [facility] Address: [address] [place], [place] [address] Performed By: #### 2 4323-8, 3016-3, 2131-9, 10014-7, 83372-7, 6-4 ####[facility] [id number] [address] [place] [address] [place] Urea nitrogen [Mass/Vol] 41 mg/dL High 03-23 [facility] Comment on above: Order Comment: Speci men Type: BLOOD SPECIMENOrdering Facility: [facility] Address: [address] [place], [place] [address] Performed By: #### 2 4323-8, 3016-3, 9, 69878-0, 55392-5, 2275-4 ####[facility] [id number] [address] [address] [place] Ferritin SerPl-mCncon 2024 Ferritin [Mass/Vol] 167.0 ng/mL Normal 30.3-565.7 [facility] Comment on above: Order Comment: Speci men Type: BLOOD SPECIMENOrdering Facility: [facility] Address: [address] [place], [place] [address] Performed By: #### 2 4323-8, 3016-3, 9, 53719-3, 19665-9, 6-4 ####[facility] [id number] [address] [address] [place] Gas and Carbon monoxide pane l (BldV)on 01-20-2025 Base excess Calc (BldV) [Moles/Vol] 0 mmol/L Normal 0-2 [facility] Comment on above: Order Comment: Speci men Type: BLOOD SPECIMEN [facility] Address: [address] [place] [address] Performed By: #### L [id number] #### [facility] [id number] [address] [place] [address] [place] Body temperature 98.06 [degF] Normal [facility] Comment on above: Order Comment: Speci men Type: BLOOD SPECIMEN [facility] Address: [address] [place] [address] Performed By: #### L [id number] #### [facility] [id number] [address] [place] [address] [place] Calcium.ionized (Bld) [Mass/Vol] 1.13 mmol/L Normal 1.08-1.30 [facility] Comment on above: Order Comment: Speci men Type: BLOOD SPECIMEN [facility] Address: [address] [place] [address] Performed By: #### L [id number] #### [facility] [id number] [address] [place] [address] [place] Calcium.ionized adjusted to pH 7.4 (BldA) [Moles/Vol] 1.13 mmol/L Normal 1.08-1.30 [facility] Comment on above: Order Comment: Speci men Type: BLOOD SPECIMEN [facility] Address: [address] [place] [address] Performed By: #### L [id number] #### [facility]IA [id number] [address] [place] [address] [place] Carboxyhemoglobin (BldV) [Mass fraction] 0.4 % Normal 0.0-2.0 [facility] Comment on above: Order Comment: Speci men Type: BLOOD SPECIMEN [facility] Address: [address] [place] [address] Result Comment: Carb oxyhemoglobin Reference Range for Smokers: 2.0-8.0% Performed By: #### L [id number] #### [facility]IA [id number] [address] [place] [address] [place] CO2 (BldV) [Partial pressure] 39 mm[Hg] Low 42-55 [facility] Comment on above: Order Comment: Speci men Type: BLOOD SPECIMEN [facility] Address: [address] [place] [address] Performed By: #### L [id number] #### [facility]IA [id number] [address] [place] [address] [place] CO2 adjusted to patient's actual temperature (BldV) [Partial pressure] 38 mmHg Low 42-55 [facility] Comment on above: Order Comment: Speci men Type: BLOOD SPECIMEN [facility] Address: [address] [place] [address] Performed By: #### L [id number] #### [facility]IA [id number] [address] [place] [address] [place] Glucose [Mass/Vol] 110 mg/dL High 60-105 [facility] Comment on above: Order Comment: Speci men Type: BLOOD SPECIMEN [facility] Address: [address] [place] [address] Performed By: #### L [id number] #### [facility] CLIA [id number] [address] [place] [address] [place] HCO3 (Bld) [Moles/Vol] 24 mmol/L Normal 24-28 [facility] Comment on above: Order Comment: Speci men Type: BLOOD SPECIMEN [facility] Address: [address] [place] [address] Performed By: #### L [id number] #### [facility] CLIA [id number] [address] [place] [address] [place] Hematocrit (Bld) [Volume fraction] 41.6 % Normal 39.0-51.0 [facility] Comment on above: Order Comment: Speci men Type: BLOOD SPECIMEN [facility] Address: [address] [place] [address] Performed By: #### L [id number] #### [facility] CLIA [id number] [address] [place] [address] [place] Hemoglobin (Bld) [Mass/Vol] 13.5 g/dL Normal 13.0-17.0 [facility] Comment on above: Order Comment: Speci men Type: BLOOD SPECIMEN [facility] Address: [address] [place] [address] Performed By: #### L [id number] #### [facility] CLIA [id number] [address] [place] [address] [place] Lactate [Moles/Vol] 3.3 mmol/L High 0.5-2.2 [facility] Comment on above: Order Comment: Speci men Type: BLOOD SPECIMEN [facility] Address: [address] [place] [address] Performed By: #### L [id number] #### [facility] CLIA [id number] [address] [place] [address] [place] Methemoglobin (Bld) [Mass fraction] 0.9 % Normal 0.0-1.5 [facility] Comment on above: Order Comment: Speci men Type: BLOOD SPECIMEN [facility] Address: [address] [place] [address] Performed By: #### L [id number] #### [facility] CLIA [id number] [address] [place] [address] [place] O2 THERAPY RA=Room Air Normal [facility] Comment on above: Order Comment: Speci men Type: BLOOD SPECIMEN [facility] Address: [address] [place] [address] Performed By: #### L [id number] #### [facility] CLIA [id number] [address] [place] [address] [place] Oxygen (BldV) [Partial pressure] 20 mm[Hg] Low 35-45 [facility] Comment on above: Order Comment: Speci men Type: BLOOD SPECIMEN [facility] Address: [address] [place] [address] Performed By: #### L [id number] #### [facility] CLIA [id number] [address] [place] [address] [place] Oxygen adjusted to patient's actual temperature (BldV) [Partial pressure] 20 mmHg Low 35-45 [facility] Comment on above: Order Comment: Speci men Type: BLOOD SPECIMEN [facility] Address: [address] [place], [place] [address] Performed By: #### L [id number] #### [facility] CLIA [id number] [address] [place], [place] [address] [place] Oxygen saturation in Venous blood 16 % Low 60-85 [facility] Comment on above: Order Comment: Speci men Type: BLOOD SPECIMEN [facility] Address: [address] [place], [place] [id number] Performed By: #### L [id number] #### [facility] CLIA [id number] [address] [place], [place] [address] [place] Oxyhemoglobin (BldV) [Mass fraction] 15 % Low 60-85 [facility] Comment on above: Order Comment: Speci men Type: BLOOD SPECIMEN [facility] [facility] Address: [address] [place] [address] Performed By: #### L [id number] #### [facility] CLIA [id number] [address] [place], [place] [address] [place] pH (BldV) 7.41 [pH] Normal 7.32-7.42 [facility] Comment on above: Order Comment: Speci men Type: BLOOD SPECIMEN Ordering Facility: [facility] Address: [address] [place] [address] Performed By: #### L [id number] #### [facility] CLIA [id number] [address] [place] [address] [place] pH adjusted to patient's actual temperature (BldV) 7.42 Normal 7.32-7.42 [facility] Comment on above: Order Comment: Speci men Type: BLOOD SPECIMEN Ordering Facility: [facility] Address: [address] [place] [address] Performed By: #### L [id number] #### [facility] CLIA [id number] [address] [place] [address] [place] Potassium [Moles/Vol] 3.7 mmol/L Normal 3.5-5.0 [facility] Comment on above: Order Comment: Speci men Type: BLOOD SPECIMEN Ordering Facility: [facility] Address: [address] [place] [address] Performed By: #### L [id number] #### [facility] CLIA [id number] [address] [place] [address] [place] Sodium [Moles/Vol] 141 mmol/L Normal 136-144 [facility] Comment on above: Order Comment: Speci men Type: BLOOD SPECIMEN Ordering Facility: [facility] Address: [address] [place] [address] Performed By: #### L [id number] #### [facility] CLIA [id number] [address] [place] [address] [place] Iron and Iron binding capaci ty panelon 01-20-2025 Iron [Mass/Vol] 36 ug/dL Low 41-186 [facility] Comment on above: Order Comment: Speci men Type: BLOOD SPECIMENOrdering Facility: [facility] Address: [address] [place] [address] Performed By: #### 2 4323-8, 6-3, 2132-9, 20070-2, 26295-4, 6-4 ####[facility] [id number] [address] [address] [place] Iron binding capacity [Mass/Vol] 311 ug/dL Normal 232-386 [facility] Comment on above: Order Comment: Speci men Type: BLOOD SPECIMENOrdering Facility: [facility] Address: [address] [place] [address] Performed By: #### 2 4323-8, 6-3, 2131-9, 15006-3, 95337-0, 2275-4 ####[facility] [id number] [place] [id number] [place] Iron/TIBC [Molar ratio] 11.6 % Low 15.0-57.0 [facility] Comment on above: Order Comment: Speci men Type: BLOOD SPECIMENOrdering Facility: [facility] Address: [address] [place] [address] Performed By: #### 2 4323-8, 6-3, 2131-9, 46859-4, 63456-9, 2275-4 ####[facility] [id number] [address] [address] [place] Magnesium SerPl-ncon 01-20 Magnesium [Mass/Vol] 2.2 mg/dL Normal 1.7-2.3 [facility] Comment on above: Order Comment: Speci men Type: BLOOD SPECIMEN Ordering Facility: [facility] Address: [address] [place] [address] Performed By: #### L [id number] #### [facility] CLIA [id number] [address] [place], [place] [address] [place] Magnesium [Mass/Vol] 2.3 mg/dL Normal 1.7-2.3 [facility] Comment on above: Order Comment: Speci men Type: BLOOD SPECIMENOrdering Facility: [facility] Address: [address] [place], [place] [address] Performed By: #### 2 4323-8, 3016-3, 2132-9, 35302-7, 65197-1, 2276-4 ####[facility] [id number] [address] [facility] NURSING PROGon 01-20-2025 NURSING PROG HNO ID: [id number] Author: MARIANA POTTER RN Service: ? Author Type: Registered Nurse Type: Nursing Progress Note Filed: 01/20/2025 05:58 Note Text: Pt arrived from ED needing 80mg IVP lasix. Potassium levels are 3.5. Paged primary for orders to replenish potassium. Discussed with patient the plan of care for replenishing potassium levels for the lasix, and also ordered to give hydralazine. Pt refused the hydralazine and potassium as he stated I do not want to take anything new, this is not why I am here. RN re-educated to patient why it is important for the potassium, and patient became agreeable to take potassium. Pt's IV causing some pain when flushing with normal saline, so RN decided pt needed a new one. Pt declined being stuck again and would rather not get one. RN educated pt about why it would be beneficial to get a new one and that his IV should not be painful. Pt agreeable to try ultrasound guided IV. 01/20: 0555: pt c/o IV pain. When assessing IV, RN decided to take it out d/t pain. Pt offered and educated that he will need another IV, however, declining a new one right now. Normal [facility] POTASSIUMon 01-20-2025 Potassium [Moles/Vol] 3.3 mmol/L Low 3.7-5.1 [facility] Comment on above: Order Comment: Speci men Type: BLOOD SPECIMEN Ordering Facility: [facility] Address: [address] [place] [address] Performed By: #### L [id number] #### [facility] CLIA [id number] [address] [place], [place] [address] [place] Potassium [Moles/Vol] 3.5 mmol/L Low 3.7-5.1 [facility] Comment on above: Order Comment: Sunni reynoso Type: BLOOD SPECIMEN Ordering Facility: [facility] Address: [address] [place] [address] Performed By: #### L [id number] #### [facility] CLIA [id number] [address] [place] [address] [place] PT panel Coag (PPP)on 2024 INR Coag (PPP) [Relative time] 1.5 {INR} High 0.9-1.3 [facility] Comment on above: Order Comment: Sunni reynoso Type: BLOOD SPECIMENOrdering Facility: [facility] Address: [address] [place] [address] Result Comment: Gayla min K Antagonist (VKA) Therapeutic Range: INR 2 to 3 (Target INR of 2.5) Note: For patients treated with VKA drugs, such as warfarin, the [place] [employer] 2012 Guideline recommends a therapeutic INR range of 2 to 3 (target INR of 2.5). This recommendation includes high-risk patients with antiphospholipid syndrome with previous arterial or venous thromboembolism, current-generation mechanical or bioprosthetic aortic heart valve replacement. Note: Patients with mechanical aortic valve replacement and additional risk factors for thromboembolic events (atrial fibrillation, previous thromboembolism, LV dysfunction, hypercoagulable conditions) or an older generation mechanical AVR (i.e., ball in-Cage) or any mechanical MVR should have a INR therapeutic range of 2.5 to 3.5 (target INR of 3). Marc KELLY, et al. Chest 2012, 141:7S-47S Evelyn RA, et al. [facility] 2017, 70: 252-289 Performed By: #### 3 4528-0, 06088-7 ####[facility] [id number] [place] [address] [place] PT Coag (PPP) [Time] 15.7 s High 9.7-13.0 [facility] Comment on above: Order Comment: Speci men Type: BLOOD SPECIMENOrdering Facility: [facility] Address: [address] [place] [address] Performed By: #### 3 4528-0, 23685-4 ####[facility] [id number] [place] [address] [place] SEPSIS LACTATEon 01-20-2025 Lactate [Moles/Vol] 2.5 mmol/L High <=2.0 [facility] Comment on above: Order Comment: Speci men Type: BLOOD SPECIMEN Ordering Facility: [facility] Address: [address] [place] [address] Performed By: #### L [id number] #### [facility] CLIA [id number] [address] [place] [address] [place] TSH SerPl-aCncon 01-20-2025 TSH Qn 3.480 m[IU]/L Normal 0.270-4.200 [facility] Comment on above: Order Comment: Speci men Type: BLOOD SPECIMENOrdering Facility: [facility] Address: [address] [place] [address] Performed By: #### 2 4323-8, 6-3, 2132-02, , 51717-8, 2275-4 ####[facility] [id number] [place] [address] [place] Vit B12 SerPl-mCncon 025 Cobalamin (Vitamin B12) [Mass/Vol] 1829 pg/mL High 232-1245 [facility] Comment on above: Order Comment: Speci men Type: BLOOD SPECIMENOrdering Facility: [facility] Address: [address] [place] [address] Performed By: #### 2 4323-8, 3016-3, 9, 42346-8, 50267-5, 6-4 ####[facility] [id number] [place] [id number] [place] aPTT PPPon 01-20-2025 aPTT Coag (PPP) [Time] 29.7 s Normal 23.0-32.4 [facility] Comment on above: Order Comment: Speci men Type: BLOOD SPECIMENOrdering Facility: [facility] Address: [address] [place] [address] Performed By: #### 3 4528-0, 60498-6 ####[facility] [id number] [place] [address] [place] CBC W Auto Differential pane l (Bld)on 01-19-2025 Basophils (Bld) [#/Vol] 0.03 10*3/uL Normal <0.11 [facility] Comment on above: Order Comment: Speci men Type: BLOOD SPECIMEN Ordering Facility: [facility] Address: [address] [place] [address] Performed By: #### L [id number] #### [facility] CLIA [id number] [address] [place] [address] [place] Basophils/100 WBC (Bld) 0.4 % Normal [facility] Comment on above: Order Comment: Speci men Type: BLOOD SPECIMEN Ordering Facility: [facility] Address: [address] [place] [address] Performed By: #### L [id number] #### [facility] CLIA [id number] [address] [place] [address] [place] Differential cell count method Nom (Bld) Auto Normal [facility] Comment on above: Order Comment: Speci men Type: BLOOD SPECIMEN Ordering Facility: [facility] Address: [address] [place] [address] Performed By: #### L [id number] #### [facility] CLIA [id number] [address] [place] [address] [place] Eosinophils (Bld) [#/Vol] 10*3/uL Normal <0.46 [facility] Comment on above: Order Comment: Speci men Type: BLOOD SPECIMEN Ordering Facility: [facility] Address: [address] [place] [address] Performed By: #### L [id number] #### [facility] CLIA [id number] [address] [place] [address] [place] Eosinophils/100 WBC (Bld) 0.1 % Normal [facility] Comment on above: Order Comment: Speci men Type: BLOOD SPECIMEN Ordering Facility: [facility] Address: [address] [place] [address] Performed By: #### L [id number] #### [facility] CLIA [id number] [address] [place] [address] [place] Erythrocyte distribution width (RBC) [Ratio] 16.1 % High 11.5-15.0 [facility] Comment on above: Order Comment: Speci men Type: BLOOD SPECIMEN Ordering Facility: [facility] Address: [address] [place] [address] Performed By: #### L [id number] #### [facility] CLIA [id number] [address] [place] [address] [place] Hematocrit (Bld) [Volume fraction] 40.3 % Normal 39.0-51.0 [facility] Comment on above: Order Comment: Speci men Type: BLOOD SPECIMEN Ordering Facility: [facility] Address: [address] [place] [address] Performed By: #### L [id number] #### [facility] CLIA [id number] [address] [place] [address] [place] Hemoglobin (Bld) [Mass/Vol] 12.9 g/dL Low 13.0-17.0 [facility] Comment on above: Order Comment: Speci men Type: BLOOD SPECIMEN Ordering Facility: [facility] Address: [address] [place] [address] Performed By: #### L [id number] #### [facility] CLIA [id number] [address] [place] [address] [place] Immature granulocytes (Bld) [#/Vol] 10*3/uL Normal <0.10 [facility] Comment on above: Order Comment: Speci men Type: BLOOD SPECIMEN Ordering Facility: [facility] Address: [address] [place] [address] Performed By: #### L [id number] #### [facility] CLIA [id number] [address] [place] [address] [place] Immature granulocytes/100 WBC (Bld) 0.1 % Normal [facility] Comment on above: Order Comment: Speci men Type: BLOOD SPECIMEN Ordering Facility: [facility] Address: [address] [place] [address] Performed By: #### L [id number] #### [facility] CLIA [id number] [address] [place] [address] [place] Lymphocytes (Bld) [#/Vol] 2.06 10*3/uL Normal 1.00-4.00 [facility] Comment on above: Order Comment: Speci men Type: BLOOD SPECIMEN Ordering Facility: [facility] Address: [address] [place] [address] Performed By: #### L [id number] #### [facility] CLIA [id number] [address] [place] [address] [place] Lymphocytes/100 WBC (Bld) 26.0 % Normal [facility] Comment on above: Order Comment: Speci men Type: BLOOD SPECIMEN Ordering Facility: [facility] Address: [address] [place] [address] Performed By: #### L [id number] #### [facility] CLIA [id number] [address] [place] [address] [place] MCH (RBC) [Entitic mass] 33.0 pg Normal 26.0-34.0 [facility] Comment on above: Order Comment: Speci men Type: BLOOD SPECIMEN Ordering Facility: [facility] Address: [address] [place] [address] Performed By: #### L [id number] #### [facility] CLIA [id number] [address] [place] [address] [place] MCHC (RBC) [Mass/Vol] 32.0 g/dL Normal 30.5-36.0 [facility] Comment on above: Order Comment: Speci men Type: BLOOD SPECIMEN Ordering Facility: [facility] Address: [address] [place] [address] Performed By: #### L [id number] #### [facility] CLIA [id number] [address] [place] [address] [place] MCV (RBC) [Entitic vol] 103.1 fL High 80.0-100.0 [facility] Comment on above: Order Comment: Speci men Type: BLOOD SPECIMEN Ordering Facility: [facility] Address: [address] [place] [address] Performed By: #### L [id number] #### [facility] CLIA [id number] [address] [place] [address] [place] Monocytes (Bld) [#/Vol] 0.68 10*3/uL Normal <0.87 [facility] Comment on above: Order Comment: Speci men Type: BLOOD SPECIMEN Ordering Facility: [facility] Address: [address] [place] [address] Performed By: #### L [id number] #### [facility] CLIA [id number] [address] [place] [address] [place] Monocytes/100 WBC (Bld) 8.6 % Normal [facility] Comment on above: Order Comment: Speci men Type: BLOOD SPECIMEN Ordering Facility: [facility] Address: [address] [place] [address] Performed By: #### L [id number] #### [facility] CLIA [id number] [address] [place] [address] [place] Neutrophils (Bld) [#/Vol] 5.13 10*3/uL Normal 1.45-7.50 [facility] Comment on above: Order Comment: Speci men Type: BLOOD SPECIMEN Ordering Facility: [facility] Address: [address] [place] [address] Performed By: #### L [id number] #### [facility] CLIA [id number] [address] [place] [address] [place] Neutrophils/100 WBC (Bld) 64.8 % Normal [facility] Comment on above: Order Comment: Speci men Type: BLOOD SPECIMEN Ordering Facility: [facility] Address: [address] [place] [address] Performed By: #### L [id number] #### [facility] CLIA [id number] [address] [place] [address] [place] Nucleated RBC (Bld) [#/Vol] 0.03 10*3/uL High <0.01 [facility] Comment on above: Order Comment: Speci men Type: BLOOD SPECIMEN Ordering Facility: [facility] Address: [address] [place] [address] Performed By: #### L [id number] #### [facility] CLIA [id number] [address] [place] [address] [place] Nucleated RBC/100 WBC (Bld) [Ratio] 0.4 /100 WBC Normal [facility] Comment on above: Order Comment: Speci men Type: BLOOD SPECIMEN Ordering Facility: [facility] Address: [address] [place] [address] Performed By: #### L [id number] #### [facility] CLIA [id number] [address] [place] [address] [place] Platelet mean volume (Bld) [Entitic vol] 10.5 fL Normal 9.0-12.7 [facility] Comment on above: Order Comment: Speci men Type: BLOOD SPECIMEN Ordering Facility: [facility] Address: [address] [place] [address] Performed By: #### L [id number] #### [facility] CLIA [id number] [address] [place] [address] [place] Platelets (Bld) [#/Vol] 272 10*3/uL Normal 150-400 [facility] Comment on above: Order Comment: Speci men Type: BLOOD SPECIMEN Ordering Facility: [facility] Address: [address] [place] [address] Performed By: #### L [id number] #### [facility] CLIA [id number] [address] [place] [address] [place] RBC (Bld) [#/Vol] 3.91 10*6/uL Low 4.20-6.00 [facility] Comment on above: Order Comment: Speci men Type: BLOOD SPECIMEN Ordering Facility: [facility] Address: [address] [place] [address] Performed By: #### L [id number] #### [facility] CLIA [id number] [address] [place] [address] [place] WBC (Bld) [#/Vol] 7.92 10*3/uL Normal 3.70-11.00 [facility] Comment on above: Order Comment: Speci men Type: BLOOD SPECIMEN Ordering Facility: [facility] Address: [address] [place] [address] Performed By: #### L [id number] #### [facility] CLIA [id number] [address] [place] [address] [place] Comprehensive metabolic 2000 panelon 01-19-2025 Albumin [Mass/Vol] 3.7 g/dL Low 3.9-4.9 [facility] Comment on above: Order Comment: Speci men Type: BLOOD SPECIMENOrdering Facility: [facility] Address: [address] [place] [address] Performed By: #### 2 4323-8, 15149-3, 75484-5, [id number] ####[facility] [id number] [place] [address] [place] ALP [Catalytic activity/Vol] 515 U/L High 38-113 [facility] Comment on above: Order Comment: Speci men Type: BLOOD SPECIMENOrdering Facility: [facility] Address: [address] [place] [address] Performed By: #### 2 4323-8, 98755-6, 88524-3, [id number] ####[facility] [id number] [place] [address] [place] ALT [Catalytic activity/Vol] 23 U/L Normal 10-54 [facility] Comment on above: Order Comment: Speci men Type: BLOOD SPECIMENOrdering Facility: [facility] Address: [address] [place] [address] Performed By: #### 2 4323-8, 42105-5, 94197-0, [id number] ####[facility] [id number] [place] [address] [place] Anion gap [Moles/Vol] 18 mmol/L High 8-15 [facility] Comment on above: Order Comment: Speci men Type: BLOOD SPECIMENOrdering Facility: [facility] Address: [address] [place] [address] Performed By: #### 2 4323-8, 33053-6, 75669-6, [id number] ####[facility] [id number] [place] [address] [place] AST [Catalytic activity/Vol] 23 U/L Normal 14-40 [facility] Comment on above: Order Comment: Speci men Type: BLOOD SPECIMENOrdering Facility: [facility] Address: [address] [place] [address] Performed By: #### 2 4323-8, 51417-5, 51209-5, [id number] ####[facility] [id number] [address] [address] [place] Bilirubin [Mass/Vol] 5.6 mg/dL High 0.2-1.3 [facility] Comment on above: Order Comment: Speci men Type: BLOOD SPECIMENOrdering Facility: [facility] Address: [address] [place] [address] Performed By: #### 2 4323-8, 11751-4, 05018-2, [id number] ####[facility] [id number] [place] [id number] [place] Calcium [Mass/Vol] 9.2 mg/dL Normal 8.5-10.2 [facility] Comment on above: Order Comment: Speci men Type: BLOOD SPECIMENOrdering Facility: [facility] Address: [address] [place] [address] Performed By: #### 2 4323-8, 81666-5, 68272-2, [id number] ####[facility] [id number] [place] [address] [place] Chloride [Moles/Vol] 103 mmol/L Normal 98-107 [facility] Comment on above: Order Comment: Speci men Type: BLOOD SPECIMENOrdering Facility: [facility] Address: [address] [place] [address] Performed By: #### 2 4323-8, 36229-3, 43650-9, [id number] ####[facility] [id number] [place] [id number] [place] CO2 [Moles/Vol] 20 mmol/L Low 22-30 [facility] Comment on above: Order Comment: Speci men Type: BLOOD SPECIMENOrdering Facility: [facility] Address: [address] [place] [address] Performed By: #### 2 4323-8, 11024-7, 60483-8, [id number] ####[facility] [id number] [address] [address] [place] Creatinine [Mass/Vol] 2.27 mg/dL High 0.73-1.22 [facility] Comment on above: Order Comment: Speci men Type: BLOOD SPECIMENOrdering Facility: [facility] Address: [address] [place] [address] Performed By: #### 2 4323-8, 48610-1, 96295-2, [id number] ####[facility] [id number] [place] [address] [place] eGFRcr SerPlBld CKD-EPI 2020 35 mL/min/1.73m??? Low >=60 [facility] Comment on above: Order Comment: Speci men Type: BLOOD SPECIMENOrdering Facility: [facility] Address: [address] [place] [address] Result Comment: Ella mated Glomerular Filtration Rate (eGFR) is calculated using the 2020 CKD-EPI creatinine equation. This equation utilizes serum creatinine, sex, and age as parameters. The creatinine assay has traceable calibration to isotope dilution-mass spectrometry. Refer to KDIGO guidelines for clinical interpretation. In patients with unstable renal function, e.g. those with acute kidney injury, the eGFR may not accurately reflect actual GFR. Performed By: #### 2 4323-8, 35959-2, 33431-7, [id number] ####[facility] [id number] [address] [address] [place] Glucose [Mass/Vol] 119 mg/dL High 74-99 [facility] Comment on above: Order Comment: Speci men Type: BLOOD SPECIMENOrdering Facility: [facility] Address: [address] [place] [address] Result Comment: The [place] Diabetes Association (ADA) provides guidance for cutoff values for fasting glucose and random glucose. The ADA defines fasting as no caloric intake for at least 8 hours. Fasting plasma glucose results between 100 to 125 mg/dL indicate increased risk for diabetes (prediabetes). Fasting plasma glucose results greater than or equal to 126 mg/dL meet the criteria for diagnosis of diabetes. In the absence of unequivocal hyperglycemia, results should be confirmed by repeat testing. In a patient with classic symptoms of hyperglycemia or hyperglycemic crisis, random plasma glucose results greater than or equal to 200 mg/dL meet the criteria for diagnosis of diabetes. Reference: Standards of Medical Care in Diabetes 2016, [place] [employer]. Diabetes Care. 2016.39(Suppl 1). Performed By: #### 2 4323-8, 23354-6, 07066-1, [id number] ####[facility] [id number] [place] [address] [place] Potassium [Moles/Vol] 3.5 mmol/L Low 3.7-5.1 [facility] Comment on above: Order Comment: Speci men Type: BLOOD SPECIMENOrdering Facility: [facility] Address: [address] [place] [address] Performed By: #### 2 4323-8, 64334-8, 85935-6, [id number] ####[facility] [id number] [place] [id number] [place] [place] Protein [Mass/Vol] 7.4 g/dL Normal 6.3-8.0 [facility] Comment on above: Order Comment: Speci men Type: BLOOD SPECIMENOrdering Facility: [facility] Address: [address] [place] [address] Performed By: #### 2 4323-8, 21365-6, 68590-4, [id number] ####[facility] [id number] [place] [id number] [place] Sodium [Moles/Vol] 141 mmol/L Normal 136-144 [facility] Comment on above: Order Comment: Speci men Type: BLOOD SPECIMENOrdering Facility: [facility] Address: [address] [place] [address] Performed By: #### 2 4323-8, 93396-4, 67791-6, [id number] ####[facility] [id number] [address] [address] [place] Urea nitrogen [Mass/Vol] 39 mg/dL High 9-24 [facility] Comment on above: Order Comment: Speci men Type: BLOOD SPECIMENOrdering Facility: [facility] Address: [address] [place] [address] Performed By: #### 2 4323-8, 63137-9, 03270-3, [id number] ####[facility] [id number] [place] [id number] [place] ED NOTEon 01-19-2025 ED NOTE HNO ID: [id number] Author: FELIPE MONTAGUE CT Service: Emergency Medicine Author Type: Clinical Body Make Up Artist Type: ED Notes Filed: 01/19/2025 19:50 Note Text: Safety and comfort care check round. Normal [facility] ED PROV NOTEon 01-19-2025 ED PROV NOTE HNO ID: [id number] Author: LA YUN MD Service: Emergency Medicine Author Type: Physician Type: ED Provider Notes Filed: 01/19/2025 23:27 Note Text: ED Provider Note Patient Name: Carlo Medina : 1980 SERVICE DATE: 01/19/25 History Patient presents with: Shortness of Breath: Pt has been seen at OSH for same, recommended to have defib/pacemaker, discharged last week and became sob shortly after dc Carlo Medina is a 44 year old male w H HTN, NICM, HFrEF (EF 15%), CKD3, cirrhosis, DVT (on Eliquis) who presents to the Emergency Department complaining of LE edema, SOB. Pt was recently discharged from OSH one week ago following an admission for fluid weight gain, Shortness of Breath, dx with cardiogenic shock and ?pneumonia. He states he was feeling improved at discharge, but shortly thereafter began again gaining weight and feeling short of breath. He reports significant bilateral lower extremity edema as well as abdominal distention, reporting shortness of breath both at rest and with activity. He states he has been compliant with his Bumex at home, has good urine output but is still been gaining fluid weight. He denies any associated chest pain, acute cough. He does report feeling very fatigued, lightheaded. He states he has previously been advised to get an ICD, but now is wishing to pursue this. No past medical history on file. No past surgical history on file. No family history on file. Social History Tobacco Use Smoking status: Not on file Smokeless tobacco: Not on file Substance and Sexual Activity Alcohol use: Not on file Drug use: Not on file Sexual activity: Not on file ALLERGIES Allergen Reactions Sacubitril-Valsartan Other: See Comments, Vomiting Review of Systems Physical Exam Vitals BP Pulse Temp Temp src Resp SpO2 Weight Height 01/19/25 1535 01/19/25 1535 01/19/25 1535 01/19/25 1535 01/19/25 1535 01/19/25 1535 01/19/25 1931 -- 108/78 58 36.8 ?C (98.2 ?F) Oral 18 97 % 77.8 kg (171 lb 8.3 oz) Physical Exam Vitals and nursing note reviewed. Constitutional: Appearance: He is well-developed. Comments: Ill-appearing male sitting reclined in bed in no apparent distress HENT: Head: Normocephalic and atraumatic. Eyes: General: Scleral icterus present. Neck: Vascular: JVD present. Cardiovascular: Rate and Rhythm: Regular rhythm. Tachycardia present. Heart sounds: Murmur heard. Pulmonary: Effort: Tachypnea present. Breath sounds: No wheezing. Comments: Speaks in single word or short sentence, defers to to speak Abdominal: General: There is distension. Palpations: Abdomen is soft. Tenderness: There is no abdominal tenderness. Musculoskeletal: Right lower leg: Edema present. Left lower leg: Edema present. Skin: General: Skin is warm and dry. Coloration: Skin is jaundiced. Skin is not cyanotic. Comments: Extremities warm to touch Neurological: General: No focal deficit present. Mental Status: He is alert. Psychiatric: Mood and Affect: Mood normal. Behavior: Behavior normal. Diagnostic Testing ED Labs Ordered and Reviewed PROTHROMBIN TIME - Abnormal; Notable for the following components: Result Value Ref Range PT Sec 15.4 (*) 9.7 - 13.0 sec INR 1.5 (*) 0.9 - 1.3 All other components within normal limits COMPREHENSIVE METABOLIC PANEL - Abnormal; Notable for the following components: Albumin 3.7 (*) 3.9 - 4.9 g/dL Bilirubin, Total 5.6 (*) 0.2 - 1.3 mg/dL Alkaline Phosphatase 515 (*) 38 - 113 U/L Glucose 119 (*) 74 - 99 mg/dL BUN 39 (*) 9 - 24 mg/dL Creatinine 2.27 (*) 0.73 - 1.22 mg/dL Potassium 3.5 (*) 3.7 - 5.1 mmol/L CO2 20 (*) 22 - 30 mmol/L Anion Gap 18 (*) 8 - 15 mmol/L Estimated Glomerular Filtration Rate 35 (*) >=60 mL/min/1.73m? All other components within normal limits HIGH SENSITIVITY TROPONIN T (INITIAL) - Abnormal; Notable for the following components: LATOYA High Sensitivity 52 (*) <12 ng/L All other components within normal limits NT PRO BNP - Abnormal; Notable for the following components: NT Pro BNP 45,802 (*) <125 pg/mL All other components within normal limits HIGH SENSITIVITY TROPONIN T (SECOND) - Abnormal; Notable for the following components: LATOYA High Sensitivity 50 (*) <12 ng/L All other components within normal limits COMPLETE BLOOD COUNT AND DIFFERENTIAL - Abnormal; Notable for the following components: RBC 3.91 (*) 4.20 - 6.00 m/uL Hemoglobin 12.9 (*) 13.0 - 17.0 g/dL MCV 103.1 (*) 80.0 - 100.0 fL RDW-CV 16.1 (*) 11.5 - 15.0 % Absolute nRBC 0.03 (*) <0.01 k/uL All other components within normal limits HIGH SENSITIVITY TROPONIN T (THIRD) 3 HRS AFTER INITIAL - Abnormal; Notable for the following components: LATOYA High Sensitivity 52 (*) <12 ng/L All other components within normal limits ED BG VENOUS/LAB PANELS - Abnormal; Notable for the following components: Lactate (POCT) 4.2 (*) 0.5 - 2.0 mmol/L All othe (more content not included)... Normal [facility] ED Triage Noteon 01-19-2025 ED Triage Note HNO ID: [id number] Author: DALI CAMARGO MD Service: Emergency Medicine Author Type: Physician Type: ED Triage Notes Filed: 01/19/2025 15:28 Note Text: ED TRIAGE PROVIDER NOTE Patient Name: Carlo Medina Service Date: 01/19/25 BRIEF HPI: This is a 44 year old male who presents to the ED with: PMH of HFrEF (15%), LBBB, HTN, HLD, hx of DVT, CKD3, cirrhosis P/w Shortness of Breath Denies defibrillator three times + edema Finally made decision to get defibrillator BRIEF EXAM: Awake and Alert Increase WOB INITIAL WORKUP AND DECISION MAKING: Orders Placed This Encounter US DVT LOWER BILATERAL XR CHEST 1V FRONTAL PORT PT/INR COMP METABOLIC PANEL (BMP+LFT) MAGNESIUM BLD High Sensitivity Troponin T with Reflex for ED Chest Pain NT PRO BNP Activated Partial Thromboplastin Time LACTATE (POC) COVID AND Influenza A/B AND RSV PCR, Expedited ECG COMPLETE W INTERPRETATION SIGNATURE: Dali Camargo MD Normal [facility] HIGH SENSITIVITY TROPONIN T (INITIAL)on 01-19-2025 Troponin T.cardiac High sensitivity method [Mass/Vol] 52 ng/L High <12 [facility] Comment on above: Order Comment: Speci [place] Type: BLOOD SPECIMENOrdering Facility: [facility] Address: [address] [place] [address] Performed By: #### 2 4323-8, 65065-4, 53894-0, [id number] ####[facility] [id number] [address] [place] HIGH SENSITIVITY TROPONIN T (SECOND)on 01-19-2025 Troponin T.cardiac High sensitivity method [Mass/Vol] 50 ng/L High <12 [facility] Comment on above: Order Comment: Sunni reynoso Type: BLOOD SPECIMEN [facility] Address: [address] [place] [address] Performed By: #### L [id number] #### [facility] CLIA [id number] [address] [place] [address] [place] HIGH SENSITIVITY TROPONIN T (THIRD) 3 HRS AFTER INITIALon 01-19-2025 Troponin T.cardiac High sensitivity method [Mass/Vol] 52 ng/L High <12 [facility] Comment on above: Order Comment: Speci men Type: BLOOD SPECIMEN [facility] Address: [address] [place] [address] Performed By: #### L [id number] #### [facility] CLIA [id number] [address] [place] [address] [id number] [place] [address] HISTORY PHYSICALon HISTORY PHYSICAL HNO ID: [id number] Author: MAGED CORREA MD Service: Cardiovascular Medicine Author Type: Physician Type: H&P Filed: 01/20/2025 13:26 Note Text: [facility]ARD[facility]ULAR [facility]ICINE HISTORY AND PHYSICAL NAME:Carlo Medina PRIMARY SERVICE: [facility] - 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 The patient reports worsening dyspnea both at rest and with minimal exertion, which has progressively deteriorated. He also experiences orthopnea. He notes significant abdominal distension and facial swelling, which prompted an ED visit approximately one week ago. During that visit, he received IV diuretics, resulting in temporary improvement of abdominal distension. However, symptoms recurred within a few days. He also reports persistent lower extremity edema. He denies any nausea or emesis. Per patient and significant other, he has apparently been advised by multiple hospitals to consider implantation of a defibrillator and pacemaker due to his heart failure. Following one hospitalization, he was discharged with a LifeVest for three months but found it uncomfortable. He has not experienced any syncope. Nonetheless, patient has been on several different regimens of medications for heart failure but has not always been able to adhere to them. 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 He is also taking isosorbide and Bumex BID. Despite adherence to his diuretic regimen, he reports minimal diuresis. History obtained from: Patient, Friend, and Old records ROS: ALL other systems reviewed and negative other than HPI. Subjective No past medical history on file. No past surgical history on file. No family history on file. Prior to Admission Medications: apixaban (ELIQUIS) 5 mg tab(s)Take 5 mg by mouth.Disp: Rfl: hydrALAZINE (APRESOLINE) 100 mg tabletTake 1 tablet by mouth three times a day.Disp: Rfl: isosorbide dinitrate (ISORDIL) 20 mg tabletTake 20 mg by mouth three times a day.Disp: Rfl: losartan (COZAAR) 50 mg tabletTake 50 mg by mouth once daily.Disp: Rfl: ALLERGIES Allergen Reactions Sacubitril-Valsartan Other: See Comments, Vomiting Objective OBJECTIVE: BP 114/85 Pulse 103 Temp (Src) 98.2 (Oral) Resp 24 Wt 171 lb 8.3 oz (77.8kg) SpO2 100% O2 Therapy: Nasal Cannula, Liters (Numeric Only): 2 Diuretic administrations (last 24 hours) None Gen: Well appearing, no acute distress, calm and cooperative HEENT: Normocephalic, atraumatic. CV: tachycardic rate. regular rhythm. No murmur. S4 present. JVP elevated. Pulm: Even and unlabored respiratory effort. Speaking in full sentences throughout exam. Symmetric chest rise. Lung hernandez clear to auscultation bilaterally. Abdomen: Soft, nontender, nondistended, no guarding/rigidity/basim ound, no CVA tenderness, no organomegaly or masses. Bowel sounds present. Extremities: Warm, well-perfused. Distal pulses 2+ throughout. No gross deformity. 3+ bilateral lower extremity edema. Neuro: CN II-XII intact. Moving all extremities spontaneously with no focal deficits. Skin: No rashes, nodules, lesions, or evidence of traumatic injury. LABS: CBC: Recent Labs 01/19/25 1744 WBC 7.92 HB 12.9* HCT 40.3 PLT 272 MCV 103.1* RDWCV 16.1* NEUTP 64.8 ABSNEUT 5.13 LYMPHP 26.0 MONOP 8.6 EODINP 0.1 BMP: Recent Labs 01/19/25 1542 GLUC 119* NA 141 K 3.5* CHLOR 103 CO2 20* ANION 18* BUN 39* CREAT 2.27* COAG: Recent Labs 01/19/25 1542 APTT 29.2 INR 1.5* CHEM: Recent Labs 01/19/25 1542 ALB 3.7* TPROT 7.4 CA 9.2 MG 2.3 HEPATIC: Recent Labs 01/19/25 1542 ALKPHOS 515* ALT 23 AST 23 TBILI 5.6* CARDIAC: Recent Labs 01/19/25 1542 PBNP 45,802* Current Facility-Administered Medications Medication Dose Route Frequency apixaban 5 mg tab(s) (ELIQUIS) 5 mg ORAL BID [START ON 01/20/2025] losartan 50 mg tab(s) (COZAAR) 50 mg ORAL DAILY [START ON 01/20/2025] hydrALAZINE 100 mg tab(s) (APRESOLINE) 100 mg ORAL TID [START ON 01/20/2025] isosorbide dinitrate 20 mg tab(s) (ISORDIL) 20 mg ORAL TID furosemide 80 mg injection (LASIX) 80 mg INTRAVENOUS q 12 H 6a/6p acetaminophen 1,000 mg tab(s) (TYLENOL) 1,000 mg ORAL q 8 H PRN melatonin 3 mg tab(s) 3 mg ORAL DAILY (8 PM) polyethylene glycol 3350 17 g packet 17 g ORAL DAILY NaCl 0.9% iv flush bag 20 mL INTRAVENOUS PRN sodium chloride 0.9 % (flush) 2-10 mL (BD POSIFLUSH) 2-10 mL INTRAVENOUS DIRECTED PRN And perflutren lipid microspheres 1.1 mg/mL 1.3 mL injection (DEFINITY) 1.3 mL INTRAVENOUS DIRECTED PRN IMAGING: EKG: CXR: Echocardiogram: pending Cardiac Catheterization: N/A ASSESSMENT 44 year-old man with a history of NICM c/b HFrEF (15%), LBBB, hypertension, hyperlipid (more content not included)... Normal [facility] Magnesium [Mass/Vol] 2.3 mg/dL Normal 1.7-2.3 [facility] Comment on above: Order Comment: Speci men Type: BLOOD SPECIMENOrdering Facility: [facility] Address: [address] [place] [address] Performed By: #### 2 4323-8, 13717-3, 41202-1, [id number] ####[facility] [id number] [place] [id number] [facility] [place] NT-proBNP [facility] Natriuretic peptide.B prohormone N-Terminal [Mass/Vol] 23863 pg/mL High <125 [facility] Comment on above: Order Comment: Sunni reynoso Type: BLOOD SPECIMENOrdering Facility: [facility] Address: [address] [place] [address] Performed By: #### 2 4323-8, 34102-6, 65979-2, [id number] ####[facility] [id number] [address] [place] NURSING PROGon 01-19-2025 NURSING PROG HNO ID: [id number] Author: MARIANA POTTER RN Service: ? Author Type: Registered Nurse Type: Nursing Progress Note Filed: 01/19/2025 22:50 Note Text: 2114: pt arrived to J73 from ED. Sepsis alert popped up on EHR. RN paged primary to notify. Awaiting orders. Normal [facility] PT panel Coag (PPP)on 2024 INR Coag (PPP) [Relative time] 1.5 {INR} High 0.9-1.3 [facility] Comment on above: Order Comment: Sunni reynoso Type: BLOOD SPECIMEN [facility] Address: [address] [place] [address] Result Comment: Gayla min K Antagonist (VKA) Therapeutic Range: INR 2 to 3 (Target INR of 2.5) Note: For patients treated with VKA drugs, such as warfarin, the [place] [employer] 2012 Guideline recommends a therapeutic INR range of 2 to 3 (target INR of 2.5). This recommendation includes high-risk patients with antiphospholipid syndrome with previous arterial or venous thromboembolism, current-generation mechanical or bioprosthetic aortic heart valve replacement. Note: Patients with mechanical aortic valve replacement and additional risk factors for thromboembolic events (atrial fibrillation, previous thromboembolism, LV dysfunction, hypercoagulable conditions) or an older generation mechanical AVR (i.e., ball in-Cage) or any mechanical MVR should have a INR therapeutic range of 2.5 to 3.5 (target INR of 3). Marc GH, et al. Chest 2012, 141:7S-47S Evelyn RA, et al. [facility] 2017, 70: 252-289 Performed By: #### L [id number] #### [facility] CLIA [id number] [address] [place] [address] [place] PT Coag (PPP) [Time] 15.4 s High 9.7-13.0 [facility] Comment on above: Order Comment: Speci men Type: BLOOD SPECIMEN [facility] Address: [address] [place] [address] Performed By: #### L [id number] #### [facility] CLIA [id number] [address] [place] [address] [place] US DVT LOWER BILon 5 DVT LOWER EVANS * * *Final Report* * * DATE OF EXAM: Jan 19 2025 5:37PM [facility] [place] - DVT LOWER EVANS / PROCEDURE REASON: Leg deep vein thrombosis (DVT) suspected * * * * Physician Interpretation * * * * EXAMINATION: RIGHT AND LEFT LOWER EXTREMITY DEEP VENOUS ULTRASOUND WITH DOPPLER IMAGING CLINICAL HISTORY: Lower extremity swelling TECHNIQUE: Grayscale with compression maneuvers, color Doppler and spectral Doppler imaging of the right and left proximal deep veins was performed. Grayscale with compression maneuvers of the right and left peroneal and posterior tibial veins was performed. The right and left great and small saphenous veins were evaluated at their insertion to the deep system. Images were obtained and stored in a permanent archive. MQ: [id number]_1 COMPARISON: None RESULT: RIGHT LOWER EXTREMITY PROXIMAL DEEP VEINS Distal External Iliac, Common Femoral and Proximal Profunda Veins: Compression: Normal Doppler: Normal, spontaneous respirophasic flow. Normal response to augmentation. Femoral vein: Compression: Normal Doppler: Normal, spontaneous respirophasic flow. Normal response to augmentation. Popliteal vein: Compression: Normal Doppler: Normal, spontaneous respirophasic flow. Normal response to augmentation. CALF DEEP VEINS Peroneal veins: Not identified. Posterior tibial veins: Not identified. Gastrocnemius and Soleal veins: Not imaged. SUPERFICIAL VEINS Great saphenous: Patent and compressible at insertion into common femoral vein; not otherwise assessed. Small Saphenous: Patent and compressible in the proximal calf, not otherwise assessed. LEFT LOWER EXTREMITY PROXIMAL DEEP VEINS Distal External Iliac, Common Femoral and Proximal Profunda Veins: Dilated. Compression: Normal Doppler: Normal, spontaneous respirophasic flow. Normal response to augmentation. Femoral vein: Compression: Normal Doppler: Normal, spontaneous respirophasic flow. Normal response to augmentation. Popliteal vein: Compression: Normal Doppler: Normal, spontaneous respirophasic flow. Normal response to augmentation. CALF DEEP VEINS Peroneal veins: Normal compression. Posterior tibial veins: Normal compression. Gastrocnemius and Soleal veins: Not imaged. SUPERFICIAL VEINS Great saphenous: Patent and compressible at insertion into common femoral vein; not otherwise assessed. Small Saphenous: Patent and compressible in the proximal calf, not otherwise assessed. IMPRESSION: Negative study for proximal DVT in the left and right lower extremities. Nondiagnostic study for calf DVT in the left and right lower extremities. Negative study for superficial thrombophlebitis in the imaged segments of the left and right lower extremities. Nonspecific dilation of the distal left common femoral vein. Tire Mechanic: PSCB Transcribe Date/Time: Jan 19 2025 6:16P Dictated by : SIMÓN BENJAMIN MD This examination was interpreted and the report reviewed and electronically signed by: VAL BROTHERS MD on Jan 19 2025 6:19PM EST [id number] Normal [facility] XR CHEST 1V FRONTAL PORTon 0 01-19-2025 XR CHEST 1V FRONTAL PORT * * *Final Report* * * DATE OF EXAM: Jan 19 2025 4:05PM EGX [id number] - XR CHEST 1V FRONTAL PORT / PROCEDURE REASON: Shortness of breath * * * * Physician Interpretation * * * * EXAMINATION: CHEST RADIOGRAPH (PORTABLE SINGLE VIEW AP) Exam Date/Time: 01/19/2025 4:05 PM CLINICAL HISTORY: Shortness of breath MQ: XCPR_5 Comparison: Chest radiograph 08/22/2024 RESULT: Lines, tubes, and devices: None. Lungs and pleura: No focal consolidation. No substantial pleural effusions. No pneumothorax. Cardiomediastinal silhouette: Stable enlarged cardiomediastinal silhouette. Other: No acute osseous abnormality. IMPRESSION: No acute radiographic abnormality. Stable enlarged cardiac silhouette. Tire Mechanic: JOSE Transcribe Date/Time: Jan 19 2025 4:11P Dictated by : SIMÓN BENJAMIN MD This examination was interpreted and the report reviewed and electronically signed by: REBECCA GUPTA MD on Jan 19 2025 5:11PM EST [id number] Normal [facility] aPTT PPPon 01-19-2025 aPTT Coag (PPP) [Time] 29.2 s Normal 23.0-32.4 Cl [facility] Comment on above: Order Comment: Speci men Type: BLOOD SPECIMENOrdering Facility: [facility] Address: [address] [place] [address] Performed By: #### 3 4528-0, 65769-4 ####[facility] [id number] [address] STATES OF [facility] Anion gap in Serum or Plasma Ordered By: Anshul Lemus on 01-10-2025 Anion gap [Moles/Vol] 11 mmol/L 5-15 [facility] BUN/creatinine ratioOrdered By: Anshul Lemus on 01-10-2025 Urea nitrogen/Creatinine [Mass ratio] 14.6 mg/mg 10-20 [facility] Bilirubin, totalOrdered By: Anshul Lemus on 01-10-2025 Bilirubin [Mass/Vol] 2.47 mg/dL High 0.00-1.30 [facility] Carbon dioxide, total [Moles /volume] in Central venous bloodOrdered By: Anshul Lemus on 01-10-2025 CO2 [Moles/Vol] 26.1 mmol/L 21.0-32.0 [facility] Chloride assayOrdered By: Farooq Lemus on 01-10-2025 Chloride [Moles/Vol] 102 mmol/L 98-108 [facility] Comprehensive Metabolic Prof ilon 01-10-2025 Albumin [Mass/Vol] 2.9 g/dL Low 3.5-5.0 [facility] Comment on above: Performed By: #### L 500.4050 #### [facility] [address] [place], [address] Albumin/Globulin [Mass ratio] 1.0 {ratio} Normal 0.9-2.4 [facility] Comment on above: Performed By: #### L 500.4050 #### [facility] [address] [place], [address] ALK PHOS 454 U/L High 40-129 [facility] Comment on above: Performed By: #### L 500.4050 #### [facility] [address] [place], [address] ALT [Catalytic activity/Vol] 18 U/L Normal <=46 [facility] Comment on above: Performed By: #### L 500.4050 #### [facility] [address] [place], [address] AST [Catalytic activity/Vol] 30 U/L Normal <=37 [facility] Comment on above: Performed By: #### L 500.4050 #### [facility] [address] [place], [address] Bilirubin [Mass/Vol] 2.47 mg/dL High 0.00-1.30 [facility] Comment on above: Performed By: #### L [id number] #### [facility] [address] [place], [address] BUN/CRE 14.6 RATIO Normal 10-20 [facility] Comment on above: Performed By: #### L [id number] #### [facility] [address] [place], [address] Calcium [Mass/Vol] 7.9 mg/dL Normal 7.6-11.0 [facility] Comment on above: Performed By: #### L 500.4050 #### [facility] [address] [place], [address] Chloride [Moles/Vol] 102 mmol/L Normal 98-108 [facility] Comment on above: Performed By: #### L [id number] #### [facility] [address] [place], [address] CO2 [Moles/Vol] 26.1 mmol/L Normal 21.0-32.0 [facility] Comment on above: Performed By: #### L [id number] #### [facility] [address] [place], [address] Creatinine [Mass/Vol] 1.55 mg/dL High 0.70-1.20 [facility] Health Comment on above: Performed By: #### L 500.4050 #### [facility] [address] [place], [address] ECRCL 61.74 ml/min Normal 50-250 [facility] Comment on above: Performed By: #### L 500.4050 #### [facility] [address] [place], [address] GAP 11 Normal 5-15 [facility] Comment on above: Performed By: #### L [id number] #### [facility] [address] [place], [address] GFR/1.73 sq M.predicted among non-blacks MDRD (S/P/Bld) [Vol rate/Area] 56 mL/min/{1.73_m2} Low >60 [facility] Comment on above: Result Comment: mL/m in/1.73m2 CKD-EPI Creatinine Equation (2020) Performed By: #### L 500.4050 #### [facility] [address] [place], [address] Globulin (S) [Mass/Vol] 2.9 g/dL Normal 2.2-4.2 [facility] Comment on above: Performed By: #### L [id number] #### [facility] [address] [place], [address] Glucose [Mass/Vol] 92 mg/dL Normal 70-99 [facility] Comment on above: Performed By: #### L [id number] #### [facility] [address] [place], [address] Potassium [Moles/Vol] 3.9 mmol/L Normal 3.3-5.1 [facility] Comment on above: Performed By: #### L [id number] #### [facility] [address] [place], [address] Sodium [Moles/Vol] 139 mmol/L Normal 133-145 [facility] Comment on above: Performed By: #### L [id number] #### [facility] [address] [place], [address] T PROT 5.8 g/dL Low 5.9-8.4 [facility] Comment on above: Performed By: #### L [id number] #### [facility] [address] [place], [address] Urea nitrogen [Mass/Vol] 23 mg/dL High 4-19 [facility] Comment on above: Performed By: #### L [id number] #### [facility] [address] [place], [address] Glomerular filtration rate ( GFR) estimation/1.73 sq m using serum, plasma, or whole bOrdered By: Anshul Lemus on 01-10-2025 GFR/1.73 sq M.predicted among non-blacks MDRD (S/P/Bld) [Vol rate/Area] 56 mL/min/{1.73_m2} Low >60 [facility] Comment on above: mL/min/1.73m2 CKD-EP I Creatinine Equation (2020) Laboratory - Chemistry and C hemistry - challengeOrdered By: Anshul Lemus on 01-10-2025 AST [Catalytic activity/Vol] 30 U/L <38 [facility] Potassium measurement (mass/ volume)Ordered By: Anshul Lemus on 01-10-2025 Potassium (Unsp spec) [Mass/Vol] 3.9 mmol/L 3.3-5.1 [facility] Serum creatinine measurement (mass/volume)Ordered By: Anshul Lemus on 01-10-2025 Creatinine [Mass/Vol] 1.55 mg/dL High 0.70-1.20 [facility] Serum globulin measurementOr dered By: Anshul Lemus on 01-10-2025 Globulin (S) [Mass/Vol] 2.9 g/dL 2.2-4.2 [facility] Serum glucose measurement (m ass/volume)Ordered By: Anshul Lemus on 01-10-2025 Glucose [Mass/Vol] 92 mg/dL 70-99 [facility] Serum or plasma alanine de paz otransferase (ALT) measurementOrdered By: Anshul Lemus on 01-10-2025 ALT [Catalytic activity/Vol] 18 U/L <47 [facility] Serum or plasma albumin fidel urement (mass/volume)Ordered By: Anshul Lemus on 01-10-2025 Albumin [Mass/Vol] 2.9 g/dL Low 3.5-5.0 [facility] Serum or plasma albumin/glob ulin mass ratioOrdered By: Anshul Lemus on 01-10-2025 Albumin/Globulin [Mass ratio] 1.0 {ratio} 0.9-2.4 [facility] Serum or plasma alkaline nick sphatase measurementOrdered By: Anshul Lemus on 01-10-2025 ALP [Catalytic activity/Vol] 454 U/L High 40-129 [facility] Serum or plasma calcium fidel urement (mass/volume)Ordered By: Anshul Lemus on 01-10-2025 Calcium [Mass/Vol] 7.9 mg/dL 7.6-11.0 [facility] Serum or plasma urea nitroge n measurement (mass/volume)Ordered By: Anshul Lemus on 01-10-2025 Urea nitrogen [Mass/Vol] 23 mg/dL High 4-19 [facility] Sodium levelOrdered By: Anshul Lemus on 01-10-2025 Sodium [Moles/Vol] 139 mmol/L 133-145 [facility] Total proteinOrdered By: Damari Lemus on 01-10-2025 Protein [Mass/Vol] 5.8 g/dL Low 5.9-8.4 [facility] Basic Metabolic Profile (BMP )on 01-09-2025 BUN/CRE 14.5 RATIO Normal 10-20 [facility] Comment on above: Performed By: #### L 500.2500 #### [facility] [address] [place], [address] Calcium [Mass/Vol] 7.9 mg/dL Normal 7.6-11.0 [facility] Comment on above: Performed By: #### L 500.2500 #### [facility] [address] [place], [address] Chloride [Moles/Vol] 102 mmol/L Normal 98-108 [facility] Comment on above: Performed By: #### L 500.2500 #### [facility] [address] [place], [address] CO2 [Moles/Vol] 27.2 mmol/L Normal 21.0-32.0 [facility] Comment on above: Performed By: #### L 500.2500 #### [facility] [address] [place], [address] Creatinine [Mass/Vol] 1.70 mg/dL High 0.70-1.20 [facility] Comment on above: Performed By: #### L 500.2500 #### [facility] [address] [place], [address] ECRCL 59.21 ml/min Normal 50-250 [facility] Comment on above: Performed By: #### L 500.2500 #### [facility] [address] [place], [address] GAP 11 Normal 5-15 [facility] Comment on above: Performed By: #### L 500.2500 #### [facility] [address] [place], [address] GFR/1.73 sq M.predicted among non-blacks MDRD (S/P/Bld) [Vol rate/Area] 50 mL/min/{1.73_m2} Low >60 [facility] Comment on above: Result Comment: mL/m in/1.73m2 CKD-EPI Creatinine Equation (2020) Performed By: #### L 500.2500 #### [facility] [address] [place], [address] Glucose [Mass/Vol] 106 mg/dL High 70-99 [facility] Comment on above: Performed By: #### L 500.2500 #### [facility] [address] [place], [address] Potassium [Moles/Vol] 3.8 mmol/L Normal 3.3-5.1 [facility] Comment on above: Performed By: #### L [id number] #### [facility] [address] [place], [address] Sodium [Moles/Vol] 140 mmol/L Normal 133-145 [facility] Comment on above: Performed By: #### L 500.2500 #### [facility] [address] [place], [address] Urea nitrogen [Mass/Vol] 25 mg/dL High 4-19 [facility] Comment on above: Performed By: #### L [id number] #### [facility] [address] [place], [address] Basic Metabolic Profile (BMP )on 01-08-2025 BUN/CRE 12.6 RATIO Normal 10-20 [facility] Comment on above: Performed By: #### L [id number] #### [facility] [address] [place], [address] Calcium [Mass/Vol] 8.3 mg/dL Normal 7.6-11.0 [facility] Comment on above: Performed By: #### L 499.0043 #### [facility] [address] [place], [address] Chloride [Moles/Vol] 101 mmol/L Normal 98-108 [facility] Comment on above: Performed By: #### L 499.0043 #### [facility] [address] [place], [address] CO2 [Moles/Vol] 28.2 mmol/L Normal 21.0-32.0 [facility] Comment on above: Performed By: #### L 499.0043 #### [facility] [address] [place], [address] Creatinine [Mass/Vol] 1.83 mg/dL High 0.70-1.20 [facility] Comment on above: Performed By: #### L [id number] #### [facility] [address] [place], [address] ECRCL 54.58 ml/min Normal 50-250 [facility] Comment on above: Performed By: #### L 499.0043 #### [facility] [address] [place], [address] GAP 12 Normal 5-15 [facility] Comment on above: Performed By: #### L 499.0043 #### [facility] [address] [place], [address] GFR/1.73 sq M.predicted among non-blacks MDRD (S/P/Bld) [Vol rate/Area] 46 mL/min/{1.73_m2} Low >60 [facility] Comment on above: Result Comment: mL/m in/1.73m2 CKD-EPI Creatinine Equation (2020) Performed By: #### L 499.0043 #### [facility] [address] [place], [address] Glucose [Mass/Vol] 100 mg/dL High 70-99 [facility] Comment on above: Performed By: #### L 499.0043 #### [facility] [address] [place], [address] Potassium [Moles/Vol] 3.8 mmol/L Normal 3.3-5.1 [facility] Comment on above: Performed By: #### L [id number] #### [facility] [address] [place], [address] Sodium [Moles/Vol] 141 mmol/L Normal 133-145 [facility] Comment on above: Performed By: #### L 499.0043 #### [facility] [address] [place], [address] Urea nitrogen [Mass/Vol] 23 mg/dL High 4-19 [facility] Comment on above: Performed By: #### L 499.0043 #### [facility] [address] [place], [address] Comprehensive Metabolic Prof [facility] 01-07-2025 Albumin [Mass/Vol] 3.2 g/dL Low 3.5-5.0 [facility] Comment on above: Order Comment: CAUGH T WHEN STORING TUBES AND WAS FOUND ON TRACKING LOG.PULLED TUBE IMMEDIATELY AND RAN. Performed By: #### L 499.0043 #### [facility] [address] [place], [address] Albumin/Globulin [Mass ratio] 1.1 {ratio} Normal 0.9-2.4 [facility] Comment on above: Order Comment: CAUGH T WHEN STORING TUBES AND WAS FOUND ON TRACKING LOG.PULLED TUBE IMMEDIATELY AND RAN. Performed By: #### L 499.0043 #### [facility] [address] [place], [address] ALK PHOS 585 U/L High 40-129 [facility] Comment on above: Order Comment: CAUGH T WHEN STORING TUBES AND WAS FOUND ON TRACKING LOG.PULLED TUBE IMMEDIATELY AND RAN. Performed By: #### L 499.0043 #### [facility] [address] [place], [address] ALT [Catalytic activity/Vol] 20 U/L Normal <=46 [facility] Comment on above: Order Comment: CAUGH T WHEN STORING TUBES AND WAS FOUND ON TRACKING LOG.PULLED TUBE IMMEDIATELY AND RAN. Performed By: #### L 499.0043 #### [facility] [address] [place], [address] AST [Catalytic activity/Vol] 29 U/L Normal <=37 [facility] Comment on above: Order Comment: CAUGH T WHEN STORING TUBES AND WAS FOUND ON TRACKING LOG.PULLED TUBE IMMEDIATELY AND RAN. Performed By: #### L 499.0043 #### [facility] [address] [place], [address] Bilirubin [Mass/Vol] 2.65 mg/dL High 0.00-1.30 [facility] Comment on above: Order Comment: CAUGH T WHEN STORING TUBES AND WAS FOUND ON TRACKING LOG.PULLED TUBE IMMEDIATELY AND RAN. Performed By: #### L 499.0043 #### [facility] [address] [place], [address] BUN/CRE 13.1 RATIO Normal 10-20 [facility] Comment on above: Order Comment: CAUGH T WHEN STORING TUBES AND WAS FOUND ON TRACKING LOG.PULLED TUBE IMMEDIATELY AND RAN. Performed By: #### L 499.0043 #### [facility] [address] [place], [address] Calcium [Mass/Vol] 8.0 mg/dL Normal 7.6-11.0 [facility] Comment on above: Order Comment: CAUGH T WHEN STORING TUBES AND WAS FOUND ON TRACKING LOG.PULLED TUBE IMMEDIATELY AND RAN. Performed By: #### L 499.0043 #### [facility] [address] [place], [address] Chloride [Moles/Vol] 102 mmol/L Normal 98-108 [facility] Comment on above: Order Comment: CAUGH T WHEN STORING TUBES AND WAS FOUND ON TRACKING LOG.PULLED TUBE IMMEDIATELY AND RAN. Performed By: #### L 499.0043 #### [facility] [address] [place], [address] CO2 [Moles/Vol] 28.4 mmol/L Normal 21.0-32.0 [facility] Comment on above: Order Comment: CAUGH T WHEN STORING TUBES AND WAS FOUND ON TRACKING LOG.PULLED TUBE IMMEDIATELY AND RAN. Performed By: #### L 499.0043 #### [facility] [address] [place], [address] Creatinine [Mass/Vol] 1.75 mg/dL High 0.70-1.20 [facility] Comment on above: Order Comment: CAUGH T WHEN STORING TUBES AND WAS FOUND ON TRACKING LOG.PULLED TUBE IMMEDIATELY AND RAN. Performed By: #### L 499.0043 #### [facility] [address] [place], [address] ECRCL 56.03 ml/min Normal 50-250 [facility] Comment on above: Order Comment: CAUGH T WHEN STORING TUBES AND WAS FOUND ON TRACKING LOG.PULLED TUBE IMMEDIATELY AND RAN. Performed By: #### L 499.0043 #### [facility] [address] [place], [address] GAP 10 Normal 5-15 [facility] Comment on above: Order Comment: CAUGH T WHEN STORING TUBES AND WAS FOUND ON TRACKING LOG.PULLED TUBE IMMEDIATELY AND RAN. Performed By: #### L 499.0043 #### [facility] [address] [place], [address] GFR/1.73 sq M.predicted among non-blacks MDRD (S/P/Bld) [Vol rate/Area] 48 mL/min/{1.73_m2} Low >60 [facility] Comment on above: Order Comment: CAUGH T WHEN STORING TUBES AND WAS FOUND ON TRACKING LOG.PULLED TUBE IMMEDIATELY AND RAN. Result Comment: mL/m in/1.73m2 CKD-EPI Creatinine Equation (2020) Performed By: #### L 499.0043 #### [facility] [address] [place], [address] Globulin (S) [Mass/Vol] 2.8 g/dL Normal 2.2-4.2 [facility] Comment on above: Order Comment: CAUGH T WHEN STORING TUBES AND WAS FOUND ON TRACKING LOG.PULLED TUBE IMMEDIATELY AND RAN. Performed By: #### L 499.0043 #### [facility] [address] [place], [address] Glucose [Mass/Vol] 94 mg/dL Normal 70-99 [facility] Comment on above: Order Comment: CAUGH T WHEN STORING TUBES AND WAS FOUND ON TRACKING LOG.PULLED TUBE IMMEDIATELY AND RAN. Performed By: #### L 499.0043 #### [facility] [address] [place], [address] Potassium [Moles/Vol] 3.1 mmol/L Low 3.3-5.1 [facility] Comment on above: Order Comment: CAUGH T WHEN STORING TUBES AND WAS FOUND ON TRACKING LOG.PULLED TUBE IMMEDIATELY AND RAN. Performed By: #### L 499.0043 #### [facility] [address] [place], [address] Sodium [Moles/Vol] 141 mmol/L Normal 133-145 [facility] Comment on above: Order Comment: CAUGH T WHEN STORING TUBES AND WAS FOUND ON TRACKING LOG.PULLED TUBE IMMEDIATELY AND RAN. Performed By: #### L 499.0043 #### [facility] [address] [place], [address] T PROT 6.0 g/dL Normal 5.9-8.4 [facility] Comment on above: Order Comment: CAUGH T WHEN STORING TUBES AND WAS FOUND ON TRACKING LOG.PULLED TUBE IMMEDIATELY AND RAN. Performed By: #### L 499.0043 #### [facility] [address] [place], [address] Urea nitrogen [Mass/Vol] 23 mg/dL High 4-19 [facility] Comment on above: Order Comment: CAUGH T WHEN STORING TUBES AND WAS FOUND ON TRACKING LOG.PULLED TUBE IMMEDIATELY AND RAN. Performed By: #### L 499.0043 #### [facility] [address] [place], [address] Consultation - Cardiologyon 01-07-2025 Consultation - Cardiology [facility] Medical Records Department [address] [place] [address] Consultation - Cardiology 01/07/25 1336 MR#: [id number] Acct: [id number] Name: CARLO MEDINA Rep #: [id number] : 1980 44 From: Lavon Campo MD PCP: Care Physician,No Primary Status:ADM IN Location: [place] [address] Assessment Plan Assessment/Plan (1) HFrEF (heart failure with reduced ejection fraction): PLAN: Continue with with isosorbide dinitrate Start hydralazine 25 mg daily Hold off on starting beta-jerome given complete heart block Continue with furosemide 40 mg IV every 8 Once creatinine is back to baseline start losartan 25 mg daily He will need to be on spironolactone and SGLT2 Recommend transferring the patient to [facility] for BiV evaluation. Noncompliance is a major issue. 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 Patient will be need to be transferred for BiV evaluation in the setting of complete heart block and reduced EF. The only caveat he is not optimized from GDMT standpoint. HPI Consult Data Date of Consult: 01/07/25 HPI Narrative HPI Narrative: CARLO MEDINA, is a 44 male with a history of nonischemic cardiomyopathy with an ejection fraction of 20% ,CKD stage 3 presents with progressive shortness of breath and edema. he has increased weight gain of about 10 pounds with period time. Has had numerous hospitalizations over at [facility] [place] and recently was over at [facility] [place] in September. It is documented throughout his charts at [facility] [place] as well as [facility] that he has a history of noncompliance. Patient at home has been taking apixaban and isosorbide. Patient has not been put on LUCRECIA inhibitors no angiotensin receptor blockers given chronic kidney disease. Because of his weight gain, shortness of breath, he presented to the ED. His BNP was 25,000, total bilirubin 4.32, direct bilirubin 2.68, creatinine 2.03. Chest x-ray shows some mild pulmonary vascular congestion but also cardiomegaly. he was found to have second degree av block with intermittent CHB. [facility] Medical History Kidney disease Non-smoker Irregular heart beat DVT (deep venous thrombosis) CKD (chronic kidney disease) Cardiomyopathy Left bundle branch block Noncompliance Pulmonary embolism CHF (congestive heart failure) Home Medications ???Medication ???Instructions ???Recorded ???Last Taken ???Type apixaban 5 mg tablet (Eliquis) 5 mg PO BID 01/04/25 Unknown Histo ry bumetanide 1 mg tablet 1 mg PO BID 01/04/25 Unknown Histo ry isosorbide dinitrate 20 mg tablet 20 mg PO Q8H 01/04/25 Unknown His tory Allergy/AdvReac Type Severity Reaction Status Date / Time No Known Allergies Allergy Verified 01/04/25 07:32 Family History Father Heart disease Brother Heart disease Social History Smoking Status: Never smoker alcohol intake: never substance use type: does not use Physical Exam Const alert Resp normal respiratory effort Cardio Jugular Venous Distention: JVD Palpation: palpable S3 Rhythm: regular rhythm Heart Sounds: murmur GI normal to inspection, nondistended, normoactive bowel sounds no CVA tenderness Back/Spine no CVA tenderness Extremity General Extremity: edema Risk Stratification Risk Stratification Applicable: No Objective Data Vital Signs: Vital Signs Temp Pulse Resp BP Pulse Ox O2 Del Method O2 Flow Rate 97.6 F L 52 L 16 104/90 H 100 Room Air 2 01/07/25 10:35 01/07/25 10:35 01/07/25 10:35 01/07/25 10:35 01/07/25 10:35 01/07/25 10:35 01/04/25 22:00 Oxygen Flow Rate (L/min) 2 Oxygen Delivery Method Room Air Weight: 165 lb 9.074 oz Body Mass Index (BMI) 21.8 Intake Output: Intake and Output for Last 24 Hours 01/05/25 01/06/25 01/07/25 23:59 23:59 23:59 Intake Total 1945 / 1945 170 / 754 724 / 724 Output Total 1350 / 1350 2550 / 2550 Balance 595 / 595 170 / -696 -1826 / -1826 Lab / Micro Data 01/06/25 05:10 01/07/25 05:25 Labs: Laboratory Results - last 24 hr 01/07/25 05:25: Sodium 141, Potassium 3.1 L, Chloride 102, Carbon Dioxide 28.4, Anion Gap 10, BUN 23 H, Creatinine 1.75 H, Estim Creat Clear Calc 56.03, Est GFR (MDRD) Non-Af 48 L, BUN/Creatinine Ratio 13.1, Glucose 94, Calcium 8.0, Total Bilirubin 2.65 H, AST 29, ALT 20, Alkaline Phosphatase 585 H, Total Protein 6.0, Albumin 3.2 L, Globulin 2.8, Albumin/Globulin Ratio 1.1 Rhythm Strip Rhythm Strip: Sinus bradycardia Rate: 55 Ectopy: None Cardiology Labs/Tests 01/07/25 05:25: Sodium 141, Potassium 3.1 L, Chloride 102, Carbon Dioxide 28.4, Anion Gap 10, BUN 23 H, Creatinine 1.75 H, Est GFR (MDRD) Non-Af 48 (more content not included)... Normal [facility] Absolute lymphocyte countOrd ered By: Anshul Lemus on 01-06-2025 Lymphocytes Auto (Unsp spec) [#/Vol] 1.71 10*3/uL 0.83-4.51 [facility] Absolute neutrophil countOrd ered By: Anshul Lemus on 01-06-2025 Neutrophils (Bld) [#/Vol] 3.8 10*3/uL 2.0-7.7 [facility] Automated lymphocyte count a s percentage of total leukocytesOrdered By: Anshul Lemus on 01-06-2025 Lymphocytes/100 WBC Auto (Unsp spec) 28.0 % 19-41 [facility] Basophil percentageOrdered B y: Anshul Lemus on 01-06-2025 Basophils/100 WBC (Bld) 0.3 % 0-1 [facility] CBC W/Diff, Automatedon 12-28 0-2024 Absolute Lymph 1.71 X10 3/uL Normal 0.83-4.51 [facility] Comment on above: Performed By: #### L 500.4050, L100.0100 #### [facility] [address] [place], [address] Absolute Neut 3.8 X10 3/uL Normal 2.0-7.7 [facility] Comment on above: Performed By: #### L 500.4050, L100.0100 #### [facility] [address] [place], [address] Basophils/100 WBC (Bld) 0.3 % Normal 0-1 [facility] Comment on above: Performed By: #### L 500.4050, L100.0100 #### [facility] [address] [place], [address] Eosinophils/100 WBC (Bld) 1.0 % Normal 0-5 [facility] [facility] Comment on above: Performed By: #### L 500.4050, L100.0100 #### [facility] [address] [place], [address] Erythrocyte distribution width (RBC) [Ratio] 15.0 % High 11.6-14.6 [facility] Comment on above: Performed By: #### L 500.4050, L100.0100 #### [facility] [address] [place], [address] Hematocrit (Bld) [Volume fraction] 37.0 % Low 40-54 [facility] Comment on above: Performed By: #### L 500.4050, L100.0100 #### [facility] [address] [place], [address] Hemoglobin (Bld) [Mass/Vol] 11.9 g/dL Low 13.0-16.5 [facility] Comment on above: Performed By: #### L 500.4050, L100.0100 #### [facility] [address] [place], [address] IG% 0.200 Normal 0.0-0.9 [facility] Comment on above: Result Comment: IG% - Immature Granulocytes (promyelocytes, myelocytes and metamyelocytes) > 1% indicates that a LEFT SHIFT is Present. Performed By: #### L 500.4050, L100.0100 #### [facility] [address] [place], [address] Lymphocytes/100 WBC (Bld) 28.0 % Normal 19-41 [facility] Comment on above: Performed By: #### L 500.4050, L100.0100 #### [facility] [address] [place], [address] MCH (RBC) [Entitic mass] 33.6 pg High 27.0-32.0 [facility] Comment on above: Performed By: #### L 500.4050, L100.0100 #### [facility] [address] [place], [address] MCHC (RBC) [Mass/Vol] 32.2 g/dL Normal 32-36 [facility] Comment on above: Performed By: #### L 500.4050, L100.0100 #### [facility] [address] [place], [address] MCV (RBC) [Entitic vol] 104.5 fL High 80-94 [facility] Comment on above: Performed By: #### L 500.4050, L100.0100 #### [facility] [address] [place], [address] Monocytes/100 WBC (Bld) 8.9 % Normal 0-10 [facility] Comment on above: Performed By: #### L 500.4050, L100.0100 #### [facility] [address] [place], [address] Neutrophils/100 WBC (Bld) 61.6 % Normal 47-70 [facility] Comment on above: Performed By: #### L 500.4050, L100.0100 #### [facility] [address] [place], [address] Nucleated RBC (Bld) [#/Vol] 0 10*3/uL Normal 0-5 [facility] Comment on above: Performed By: #### L 500.4050, L100.0100 #### [facility] [address] [place], [address] Platelet mean volume (Bld) [Entitic vol] 10.0 fL Normal 6.2-12.0 [facility] Comment on above: Performed By: #### L 500.4050, L100.0100 #### [facility] [address] [place], [address] Platelets (Bld) [#/Vol] 219 10*3/uL Normal 150-450 [facility] Comment on above: Performed By: #### L 500.4050, L100.0100 #### [facility] [address] [place], [address] RBC (Bld) [#/Vol] 3.54 10*6/uL Low 4.6-6.2 [facility] Comment on above: Performed By: #### L 500.4050, L100.0100 #### [facility] [address] [place], [address] RDW SD 57.7 fl High 35.1-43.9 [facility] Comment on above: Performed By: #### L 500.4050, L100.0100 #### [facility] [address] [place], [address] WBC (Bld) [#/Vol] 6.1 10*3/uL Normal 4.4-11.0 [facility] Comment on above: Performed By: #### L 500.4050, L100.0100 #### [facility] [address] [place], [address] Comprehensive Metabolic Prof ilon 01-06-2025 Albumin [Mass/Vol] 3.1 g/dL Low 3.5-5.0 [facility] Comment on above: Performed By: #### L 500.4050, L100.0100 #### [facility] [address] [place], [address] Albumin/Globulin [Mass ratio] 1.1 {ratio} Normal 0.9-2.4 [facility] Comment on above: Performed By: #### L 500.4050, L100.0100 #### [facility] [address] [place], [address] ALK PHOS 638 U/L High 40-129 [facility] Comment on above: Performed By: #### L 500.4050, L100.0100 #### [facility] [address] [place], [address] ALT [Catalytic activity/Vol] 19 U/L Normal <=46 [facility] Comment on above: Performed By: #### L 500.4050, L100.0100 #### [facility] [address] [place], [address] AST [Catalytic activity/Vol] 27 U/L Normal <=37 [facility] Comment on above: Performed By: #### L 500.4050, L100.0100 #### [facility] [address] [place], [address] Bilirubin [Mass/Vol] 2.99 mg/dL High 0.00-1.30 [facility] Comment on above: Performed By: #### L 500.4050, L100.0100 #### [facility] [address] [place], [address] BUN/CRE 14.3 RATIO Normal 10-20 [facility] Comment on above: Performed By: #### L 500.4050, L100.0100 #### [facility] [address] [place], [address] Calcium [Mass/Vol] 8.2 mg/dL Normal 7.6-11.0 [facility] Comment on above: Performed By: #### L 500.4050, L100.0100 #### [facility] [address] [place], [address] Chloride [Moles/Vol] 103 mmol/L Normal 98-108 [facility] Comment on above: Performed By: #### L 500.4050, L100.0100 #### [facility] [address] [place], [address] CO2 [Moles/Vol] 26.8 mmol/L Normal 21.0-32.0 [facility] Comment on above: Performed By: #### L 500.4050, L100.0100 #### [facility] [address] [place], [address] Creatinine [Mass/Vol] 1.91 mg/dL High 0.70-1.20 [facility] Comment on above: Performed By: #### L 500.4050, L100.0100 #### [facility] [address] [place], [address] ECRCL 52.15 ml/min Normal 50-250 [facility] Comment on above: Performed By: #### L 500.4050, L100.0100 #### [facility] [address] [place], [address] GAP 13 Normal 5-15 [facility] Comment on above: Performed By: #### L 500.4050, L100.0100 #### [facility] [address] [place], [address] GFR/1.73 sq M.predicted among non-blacks MDRD (S/P/Bld) [Vol rate/Area] 43 mL/min/{1.73_m2} Low >60 [facility] Comment on above: Result Comment: mL/m in/1.73m2 CKD-EPI Creatinine Equation (2020) Performed By: #### L 500.4050, L100.0100 #### [facility] [address] [place], [address] Globulin (S) [Mass/Vol] 2.9 g/dL Normal 2.2-4.2 [facility] Comment on above: Performed By: #### L 500.4050, L100.0100 #### [facility] [address] [place], [address] Glucose [Mass/Vol] 97 mg/dL Normal 70-99 [facility] Comment on above: Performed By: #### L 500.4050, L100.0100 #### [facility] [address] [place], [address] Potassium [Moles/Vol] 3.1 mmol/L Low 3.3-5.1 [facility] Comment on above: Performed By: #### L 500.4050, L100.0100 #### [facility] [address] [place], [address] Sodium [Moles/Vol] 143 mmol/L Normal 133-145 [facility] Comment on above: Performed By: #### L 500.4050, L100.0100 #### [facility] [address] [place], [address] T PROT 6.0 g/dL Normal 5.9-8.4 [facility] Comment on above: Performed By: #### L 500.4050, L100.0100 #### [facility] [address] [place], [address] Urea nitrogen [Mass/Vol] 27 mg/dL High 4-19 [facility] Comment on above: Performed By: #### L 500.4050, L100.0100 #### [facility] [address] [place], [address] Electrocardiogram reportOrde red By: Clark Almaraz on 01-06-2025 EKG study [facility] [address] [place] [address] 12 Lead EKG 01/04/25 0734 MR#: [id number] Acct: [id number] Name: CARLO MEDINA Rep #:[id number] : 1980 44 From: Clark Almaraz MD Attending Dr: Dr. Anshul Lemus DO Status: ADM IN Ordering Dr: Deborah Penaloza DO Date: 0 01/04/25 Location: [facility] Sex: M AA Admitted: 01/04/25 Test Reason : SOB Blood Pressure : */* mmHG Vent. Rate : 55 BPM Atrial Rate : 55 BPM P-R Int : 142 ms QRS Dur : 152 ms QT Int : 514 ms P-R-T Axes : 78 174 -11 degrees QTcB Int : 491 ms Sinus bradycardia with 2:1 heart block incomplete LBBB Abnormal ECG Reconfirmed by CLARK ALMARAZ MD ([id number]), proposal editor GRACE KIDD ([id number]) on 01/06/2025 6:44:03 AM Referred By: Confirmed By: CLARK ALMARAZ MD 01/06/25 0644 Date _ Clark Almaraz MD CC: Dr. Deborah Penaloza, DO; Dr. Anshul Lemus, DO; No Primary Care Physician ~ Signed [facility] Work Phone: Eosinophil percentageOrdered By: Anshul Lemus on 01-06-2025 Eosinophils/100 WBC (Bld) 1.0 % 0-5 [facility] Erythrocyte distribution wid th ratioOrdered By: Anshul Lemus on 01-06-2025 Erythrocyte distribution width (RBC) [Ratio] 15.0 % High 11.6-14.6 [facility] Erythrocyte distribution wid th standard deviationOrdered By: Anshul Lemus on 01-06-2025 Erythrocyte distribution width (RBC) [Ratio] 57.7 fl High 35.1-43.9 [facility] Hematocrit Auto (Bld) [Volum e fraction]Ordered By: Anshul Lemus on 01-06-2025 Hematocrit (Bld) [Volume fraction] 37.0 % Low 40-54 [facility] Hemoglobin measurementOrdere d By: Anshul Lemus on 01-06-2025 Hemoglobin (Bld) [Mass/Vol] 11.9 g/dL Low 13.0-16.5 [facility] Immature granulocytes/100 WB C Auto (Bld)Ordered By: Anshul Lemus on 01-06-2025 Immature granulocytes/100 WBC (Bld) 0.200 % 0.0-0.9 [facility] Comment on above: IG% - Immature Granu locytes (promyelocytes, myelocytes and metamyelocytes) > 1% indicates that a LEFT SHIFT is Present. MCV (mean corpuscular volume ) determinationOrdered By: Anshul Lemus on 01-06-2025 MCV (RBC) [Entitic vol] 104.5 fL High 80-94 [facility] Magnesiumon 01-06-2025 Magnesium [Mass/Vol] 1.8 mg/dL Normal 1.5-2.2 [facility] Comment on above: Performed By: #### L 501.5200 #### [facility] [address] [place], [place], [address] Magnesium measurement (mass/ volume)Ordered By: Anshul Lemus on 01-06-2025 Magnesium (Unsp spec) [Mass/Vol] 1.8 mg/dL 1.5-2.2 [facility] Mean corpuscular hemoglobin (MCH) determinationOrdered By: Anshul Lemus on 01-06-2025 MCH (RBC) [Entitic mass] 33.6 pg High 27.0-32.0 [facility] Mean corpuscular hemoglobin concentration (MCHC) determinationOrdered By: Anshul Lemus on 01-06-2025 MCHC (RBC) [Mass/Vol] 32.2 g/dL 32-36 [facility] Mean platelet volume determi nationOrdered By: Anshul Lemus on 01-06-2025 Platelet mean volume (Bld) [Entitic vol] 10.0 fL 6.2-12.0 [facility] Monocyte percentageOrdered B y: Anshul Lemus on 01-06-2025 Monocytes/100 WBC (Bld) 8.9 % 0-10 [facility] Neutrophil percentageOrdered By: Anshul Lemus on 01-06-2025 Neutrophils/100 WBC (Bld) 61.6 % 47-70 [facility] Nucleated red blood cell per centageOrdered By: Anshul Lemus on 01-06-2025 Nucleated RBC/100 WBC (Bld) [Ratio] 0 % 0-5 [facility] Platelet countOrdered By: Farooq Lemus on 01-06-2025 Platelets (Bld) [#/Vol] 219 10*3/uL 150-450 [facility] RBC Auto (Bld) [#/Vol]Ordere d By: Anshul Lemus on 01-06-2025 RBC (Bld) [#/Vol] 3.54 10*6/uL Low 4.6-6.2 [facility] White blood cell (WBC) count Ordered By: Anshul Lemus on 01-06-2025 WBC (Bld) [#/Vol] 6.1 10*3/uL 4.4-11.0 [facility] CBC W/Diff, Automatedon Absolute Lymph 1.62 X10 3/uL Normal 0.83-4.51 [facility] Comment on above: Order Comment: PT RE FUSED X2 NURSE NOTFIED Performed By: #### L 499.0043 #### [facility] [address] [place], [address] Absolute Neut 4.2 X10 3/uL Normal 2.0-7.7 [facility] Comment on above: Order Comment: PT RE FUSED X2 NURSE NOTFIED Performed By: #### L 499.0043 #### [facility] [address] [place], [address] Basophils/100 WBC (Bld) 0.5 % Normal 0-1 [facility] Comment on above: Order Comment: PT RE FUSED X2 NURSE NOTFIED Performed By: #### L 499.0043 #### [facility] [address] [place], [address] Eosinophils/100 WBC (Bld) 0.6 % Normal 0-5 [facility] Comment on above: Order Comment: PT RE FUSED X2 NURSE NOTFIED Performed By: #### L 499.0043 #### [facility] [address] [place], [address] Erythrocyte distribution width (RBC) [Ratio] 15.0 % High 11.6-14.6 [facility] Comment on above: Order Comment: PT RE FUSED X2 NURSE NOTFIED Performed By: #### L 499.0043 #### [facility] [address] [place], [address] Hematocrit (Bld) [Volume fraction] 39.7 % Low 40-54 [facility] Comment on above: Order Comment: PT RE FUSED X2 NURSE NOTFIED Performed By: #### L 499.0043 #### [facility] [address] [place], [address] Hemoglobin (Bld) [Mass/Vol] 12.9 g/dL Low 13.0-16.5 [facility] Comment on above: Order Comment: PT RE FUSED X2 NURSE NOTFIED Performed By: #### L 499.0043 #### [facility] [address] [place], [address] IG% 0.300 Normal 0.0-0.9 [facility] Comment on above: Order Comment: PT RE FUSED X2 NURSE NOTFIED Result Comment: IG% - Immature Granulocytes (promyelocytes, myelocytes and metamyelocytes) > 1% indicates that a LEFT SHIFT is Present. Performed By: #### L 499.0043 #### [facility] [address] [place], [address] Lymphocytes/100 WBC (Bld) 25.5 % Normal 19-41 [facility] Comment on above: Order Comment: PT RE FUSED X2 NURSE NOTFIED Performed By: #### L 499.0043 #### [facility] [address] [place], [address] MCH (RBC) [Entitic mass] 33.3 pg High 27.0-32.0 [facility] Comment on above: Order Comment: PT RE FUSED X2 NURSE NOTFIED Performed By: #### L 499.0043 #### [facility] [address] [place], [address] MCHC (RBC) [Mass/Vol] 32.5 g/dL Normal 32-36 [facility] Comment on above: Order Comment: PT RE FUSED X2 NURSE NOTFIED Performed By: #### L 499.0043 #### [facility] [address] [place], [address] MCV (RBC) [Entitic vol] 102.6 fL High 80-94 [facility] Comment on above: Order Comment: PT RE FUSED X2 NURSE NOTFIED Performed By: #### L 499.0043 #### [facility] [address] [place], [address] Monocytes/100 WBC (Bld) 7.4 % Normal 0-10 [facility] Comment on above: Order Comment: PT RE FUSED X2 NURSE NOTFIED Performed By: #### L 499.0043 #### [facility] [address] [place], [address] Neutrophils/100 WBC (Bld) 65.7 % Normal 47-70 [facility] Comment on above: Order Comment: PT RE FUSED X2 NURSE NOTFIED Performed By: #### L 499.0043 #### [facility] [address] [place], [address] Nucleated RBC (Bld) [#/Vol] 0 10*3/uL Normal 0-5 [facility] Comment on above: Order Comment: PT RE FUSED X2 NURSE NOTFIED Performed By: #### L 499.0043 #### [facility] [address] [place], [address] Platelet mean volume (Bld) [Entitic vol] 10.0 fL Normal 6.2-12.0 [facility] Comment on above: Order Comment: PT RE FUSED X2 NURSE NOTFIED Performed By: #### L 499.0043 #### [facility] [address] [place], [address] Platelets (Bld) [#/Vol] 229 10*3/uL Normal 150-450 [facility] Comment on above: Order Comment: PT RE FUSED X2 NURSE NOTFIED Performed By: #### L 499.0043 #### [facility] [address] [place], [address] RBC (Bld) [#/Vol] 3.87 10*6/uL Low 4.6-6.2 [facility] Comment on above: Order Comment: PT RE FUSED X2 NURSE NOTFIED Performed By: #### L 499.0043 #### [facility] [address] [place], [address] RDW SD 56.2 fl High 35.1-43.9 [facility] Comment on above: Order Comment: PT RE FUSED X2 NURSE NOTFIED Performed By: #### L 499.0043 #### [facility] [address] [place], [address] WBC (Bld) [#/Vol] 6.4 10*3/uL Normal 4.4-11.0 [facility] Comment on above: Order Comment: PT RE FUSED X2 NURSE NOTFIED Performed By: #### L 499.0043 #### [facility] [address] [place], [address] Calculated very low density lipoprotein (VLDL) cholesterol measurementOrdered By: Anshul Lemus on 01-05-2025 Calculated very low density lipoprotein (VLDL) cholesterol measurement 18 mg/dL 5-40 [facility] Comprehensive Metabolic Prof ilon 01-05-2025 Albumin [Mass/Vol] 3.4 g/dL Low 3.5-5.0 [facility] Comment on above: Performed By: #### L 501.4021 #### [facility] [address] [place], [address] Albumin/Globulin [Mass ratio] 1.0 {ratio} Normal 0.9-2.4 [facility] Comment on above: Performed By: #### L 501.4021 #### [facility] [address] [place], [address] ALK PHOS 751 U/L High 40-129 [facility] Comment on above: Performed By: #### L 501.4021 #### [facility] [address] [place], [address] ALT [Catalytic activity/Vol] 22 U/L Normal <=46 [facility] Comment on above: Performed By: #### L 501.4021 #### [facility] [address] [place], [address] AST [Catalytic activity/Vol] 29 U/L Normal <=37 [facility] Comment on above: Performed By: #### L 501.4021 #### [facility] [address] [place], [address] Bilirubin [Mass/Vol] 4.16 mg/dL High 0.00-1.30 [facility] Comment on above: Performed By: #### L 501.4021 #### [facility] [address] [place], [address] BUN/CRE 14.6 RATIO Normal 10-20 [facility] Comment on above: Performed By: #### L 501.4021 #### [facility] [address] [place], [address] Calcium [Mass/Vol] 8.9 mg/dL Normal 7.6-11.0 [facility] Comment on above: Performed By: #### L 501.4021 #### [facility] [address] [place], [address] Chloride [Moles/Vol] 103 mmol/L Normal 98-108 [facility] Comment on above: Performed By: #### L 501.4021 #### [facility] [address] [place], [address] CO2 [Moles/Vol] 25.7 mmol/L Normal 21.0-32.0 [facility] Comment on above: Performed By: #### L 501.4021 #### [facility] [address] [place], [address] Creatinine [Mass/Vol] 2.02 mg/dL High 0.70-1.20 [facility] Comment on above: Performed By: #### L 501.4021 #### [facility] [address] [place], [address] ECRCL 49.31 ml/min Low 50-250 [facility] Comment on above: Performed By: #### L 501.4021 #### [facility] [address] [place], [address] GAP 15 Normal 5-15 [facility] Comment on above: Performed By: #### L 501.4021 #### [facility] [address] [place], [address] GFR/1.73 sq M.predicted among non-blacks MDRD (S/P/Bld) [Vol rate/Area] 40 mL/min/{1.73_m2} Low >60 [facility] Comment on above: Result Comment: mL/m in/1.73m2 CKD-EPI Creatinine Equation (2020) Performed By: #### L 501.4021 #### [facility] [address] [place], [address] Globulin (S) [Mass/Vol] 3.4 g/dL Normal 2.2-4.2 [facility] Comment on above: Performed By: #### L 501.4021 #### [facility] [address] [place], [address] Glucose [Mass/Vol] 124 mg/dL High 70-99 [facility] Comment on above: Performed By: #### L 501.4021 #### [facility] Laboratory [address] [place], [address] Potassium [Moles/Vol] 3.1 mmol/L Low 3.3-5.1 [facility] Comment on above: Performed By: #### L 501.4021 #### [facility] Laboratory [address] [place], [address] Sodium [Moles/Vol] 144 mmol/L Normal 133-145 [facility] Comment on above: Performed By: #### L 501.4021 #### [facility] Laboratory [address] [place], [address] T PROT 6.8 g/dL Normal 5.9-8.4 [facility] Comment on above: Performed By: #### L 501.4021 #### [facility] Laboratory [address] [place], [place], [id number] Urea nitrogen [Mass/Vol] 29 mg/dL High 4-19 [facility] Comment on above: Performed By: #### L 501.4021 #### [facility] Laboratory [address] [place], [place], [id number] International normalized rat io (INR) calculationOrdered By: Anshul Lemus on 01-05-2025 INR Coag (Bld) [Relative time] 1.6 {INR} [facility] LDL calc ser/plasOrdered By: Anshul Lemus on 01-05-2025 Cholesterol in LDL [Mass/Vol] 112 mg/dL [facility] Comment on above: Unqnxnfabh=142-679 m g/dL & Higher Uiva=680 mg/dL or greater Lipid Profileon 01-05-2025 CHOL:HDL 5.48 Normal [facility] Comment on above: Performed By: #### L 501.4021 #### [facility] Laboratory [address] [place], [place], [address] Cholesterol [Mass/Vol] 159 mg/dL Normal <=200 [facility] Comment on above: Result Comment: Chol esterol level, Desirable <200 mg/dL Borderline high cholesterol 200-239 mg/dL High cholesterol >=240 mg/dL Recommendations of the NCEP Adult Treatment Panel for the following risk-cutoff thresholds for the [place] population. Performed By: #### L 501.4021 #### [facility] Laboratory [address] [place], [place], [address] Cholesterol in HDL [Mass/Vol] 29 mg/dL Low [facility] Comment on above: Result Comment: Kati onal Cholesterol Education Program (NCEP) guidelines: <40 mg/dL: Low HDL-cholesterol (major risk factor for CHD) >= 60 mg/dL: High HDL-cholesterol (negative risk factor for CHD) HDL-cholesterol is affected by a number of factors, e.g. smoking, exercise, hormones, sex and age. Performed By: #### L 501.4021 #### [facility] Laboratory [address] [place], [address] Cholesterol in LDL [Mass/Vol] 112 mg/dL Normal [facility] Comment on above: Result Comment: Bord btfvsv=918-964 mg/dL Higher Afef=427 mg/dL or greater Performed By: #### L 501.4021 #### [facility] Laboratory [address] [place], [address] Cholesterol in VLDL [Mass/Vol] 18 mg/dL Normal 5-40 [facility] Comment on above: Performed By: #### L 501.4021 #### [facility] Laboratory [address] [place], [address] Triglyceride [Mass/Vol] 88 mg/dL Normal [facility] Comment on above: Result Comment: The drugs N-Acetylcysteine and Metamizole may falsely depress this assay. Normal range: <150 mg/dL Borderline High: 150-199 mg/dL High: 200-499 mg/dL Very High: >500 mg/dL Performed By: #### L 501.4021 #### [facility] Laboratory [address] [place], [address] Prothrombin Time w/INRon INR Coag (PPP) [Relative time] 1.6 {INR} Normal [facility] Comment on above: Performed By: #### L 499.0043 #### [facility] Laboratory [address] [place], [address] PT Coag (PPP) [Time] 19.4 s High 11.7-14.9 [facility] Comment on above: Performed By: #### L 499.0043 #### [facility] Laboratory [address] [place], [address] Prothrombin timeOrdered By: Anshul Lemus on 01-05-2025 PT Coag (PPP) [Time] 19.4 s High 11.7-14.9 [facility] Screening total cholesterol/ high density lipoprotein (HDL) cholesterol ratioOrdered By: Anshul Lemus on 01-05-2025 Cholesterol.total/Chol esterol in HDL [Mass ratio] 5.48 {ratio} [facility] Serum or plasma cholesterol in HDL measurement (mass/volume)Ordered By: Anshul Lemus on 01-05-2025 Cholesterol in HDL [Mass/Vol] 29 mg/dL Low >40 [facility] Comment on above: National Cholesterol Education Program (NCEP) guidelines:<40 mg/dL: Low HDL-cholesterol (major risk factor for CHD)>= 60 mg/dL: High HDL-cholesterol (negative risk factor for CHD)HDL-cholesterol is affected by a number of factors, e.g. smoking, exercise, hormones, sex and age. Serum or plasma cholesterol measurement (mass/volume)Ordered By: Anshul Lemus on 01-05-2025 Cholesterol [Mass/Vol] 159 mg/dL <201 [facility] Comment on above: Cholesterol level, D esirable <200 mg/dLBorderline high cholesterol 200-239 mg/dLHigh cholesterol >=240 mg/dLRecommendations of the NCEP Adult Treatment Panel for the following risk-cutoff thresholds for the [place] population. Triglycerides measurementOrd ered By: Anshul Lemus on 01-05-2025 Triglyceride [Mass/Vol] 88 mg/dL <199 [facility] Comment on above: The drugs N-Acetylcy steine and Metamizole may falsely depress this assay. Normal range: <150 mg/dLBorderline High: 150-199 mg/dLHigh: 200-499 mg/dLVery High: >500 mg/dL 12 Lead EKGon 01-04-2025 12 Lead EKG [facility] Cardiovascular Services [address] [place] [address] 12 Lead EKG 01/04/25 0734 MR#: [id number] Acct: [id number] Name: CARLO MEDINA Pedro Rep #: [id number] : 1980 44 From: Clark Almaraz MD Attending Dr: Dr. Anshul Lemus DO Status: ADM IN Ordering Dr: Deborah Penaloza DO Date: 01/04/25 Location: [facility] Sex: M AA Admitted: 01/04/25 Test Reason : SOB Blood Pressure : */* mmHG Vent. Rate : 55 BPM Atrial Rate : 55 BPM P-R Int : 142 ms QRS Dur : 152 ms QT Int : 514 ms P-R-T Axes : 78 174 -11 degrees QTcB Int : 491 ms Sinus bradycardia with 2:1 heart block incomplete LBBB Abnormal ECG Reconfirmed by CLARK ALMARAZ MD ([id number]), proposal editor ABDIELBARRIEKellyGRACE ([id number]) on 01/06/2025 6:44:03 AM Referred By: Confirmed By: CLARK ALMARAZ MD 01/06/25 0644 Date Clark Almaraz MD CC: Dr. Deborah Penaloza, ; Dr. Anshul Lemus, ; No Primary Care Physician Signed Normal [facility] Abdomen Limitedon 01-04-2025 Abdomen Limited [facility] Imaging Services [address] [place] [id number] Abdomen Limited MR#: [id number] Acct: [id number] Name: CARLO MEDINA Rep #: [id number] : 1980 M 44 From: Jamal Ford MD PCP: Care Physician,No Primary Status: [facility] ER Study: Abdomen Limited Date of Exam: 01/04/25 Exam# [id number] Ordering Dr: Deborah Penaloza DO EXAM: US Abdomen Limited, Right Upper Quadrant CLINICAL INDICATION: ELEVATED LIVER ENZYMES AND BILI TECHNIQUE: Real-time ultrasound of the right upper quadrant with image documentation. COMPARISON: No relevant prior studies available. FINDINGS: LIVER: Liver measures up to 15.9 cm. Fatty infiltration of the liver. No intrahepatic bile duct dilation. GALLBLADDER: Negative Melendez's sign was reported by the [employer]. No gallstones. COMMON BILE DUCT: Unremarkable as visualized. No stones. No dilation. Common bile duct measures 0.5 cm in diameter. PANCREAS: Unremarkable as visualized. RIGHT KIDNEY: Unremarkable. No stones. No hydronephrosis. The right kidney measures 9.4 x 5.7 x 3.6 cm. INFERIOR VENA CAVA: Mildly dilated IVC measuring up to 3.3 cm diameter. FREE FLUID: Ascites. US/Abdomen Limited IMPRESSION: 1. Ascites. 2. Fatty infiltration of the liver. Reading Location: [facility] CC: Dr. Deborah Penaloza DO; No Primary Care Physician Tire Mechanic: Signed Normal [facility] Absolute lymphocyte countOrd ered By: Deborah Penaloza on 01-04-2025 Lymphocytes Auto (Unsp spec) [#/Vol] 1.88 10*3/uL 0.83-4.51 [facility] Absolute neutrophil countOrd ered By: Deborah Penaloza on 01-04-2025 Neutrophils (Bld) [#/Vol] 3.7 10*3/uL 2.0-7.7 [facility] Anion gap in Serum or Plasma Ordered By: Deborah Penaloza on 01-04-2025 Anion gap [Moles/Vol] 14 mmol/L 5-15 [facility] Automated lymphocyte count a s percentage of total leukocytesOrdered By: Deborah Penaloza on 01-04-2025 Lymphocytes/100 WBC Auto (Unsp spec) 30.6 % 19-41 [facility] BUN/creatinine ratioOrdered By: Deborah Penaloza on 01-04-2025 Urea nitrogen/Creatinine [Mass ratio] 14.9 mg/mg 10- [facility] Basic Metabolic Profile (BMP )on 01-04-2025 BUN/CRE 14.9 RATIO Normal - [facility] Comment on above: Performed By: #### L 499.0043 #### [facility] Laboratory [address] [facility] [address] Calcium [Mass/Vol] 9.0 mg/dL Normal 7.6-11.0 [facility] Comment on above: Performed By: #### L 499.0043 #### [facility] Laboratory [address] [place], [address] Chloride [Moles/Vol] 105 mmol/L Normal 98-108 [facility] Comment on above: Performed By: #### L 499.0043 #### [facility] Laboratory [address] [place], [address] CO2 [Moles/Vol] 25.2 mmol/L Normal 21.0-32.0 [facility] Comment on above: Performed By: #### L 499.0043 #### [facility] Laboratory [address] [place], [address] Creatinine [Mass/Vol] 2.03 mg/dL High 0.70-1.20 [facility] Comment on above: Performed By: #### L 499.0043 #### [facility] Laboratory [address] [place], [address] ECRCL 51.39 ml/min Normal 50-250 [facility] Comment on above: Performed By: #### L 499.0043 #### [facility] Laboratory [address] [place], [address] GAP 14 Normal 5-15 [facility] Comment on above: Performed By: #### L 499.0043 #### [facility] Laboratory [address] [place], [address] GFR/1.73 sq M.predicted among non-blacks MDRD (S/P/Bld) [Vol rate/Area] 40 mL/min/{1.73_m2} Low >60 [facility] Comment on above: Result Comment: mL/m in/1.73m2 CKD-EPI Creatinine Equation (2020) Performed By: #### L 499.0043 #### [facility] Laboratory [address] [place], [address] Glucose [Mass/Vol] 97 mg/dL Normal 70-99 [facility] Comment on above: Performed By: #### L 499.0043 #### [facility] Laboratory [address] [place], [address] Potassium [Moles/Vol] 3.7 mmol/L Normal 3.3-5.1 [facility] Comment on above: Performed By: #### L 499.0043 #### [facility] Laboratory [address] [place], [address] Sodium [Moles/Vol] 144 mmol/L Normal 133-145 [facility] Comment on above: Performed By: #### L 499.0043 #### [facility] Laboratory [address] [place], [address] Urea nitrogen [Mass/Vol] 30 mg/dL High 4-19 [facility] Comment on above: Performed By: #### L 499.0043 #### [facility] Laboratory [address] [place], [address] Basophil percentageOrdered B y: Deborah Penaloza on 01-04-2025 Basophils/100 WBC (Bld) 0.3 % 0-1 [facility] Bilirubin directOrdered By: Deborah Penaloza on 01-04-2025 Bilirubin.direct [Mass/Vol] 2.68 mg/dL High 0.00-0.30 [facility] Bilirubin, totalOrdered By: Deborah Penaloza on 01-04-2025 Bilirubin [Mass/Vol] 4.32 mg/dL High 0.00-1.30 [facility] CBC W/Diff, Automatedon Absolute Lymph 1.88 X10 3/uL Normal 0.83-4.51 [facility] Comment on above: Performed By: #### L 100.0100, L500.2500, L503.7505, L500.3400, L501.2450 #### [facility] Laboratory [address] [place], [address] Absolute Neut 3.7 X10 3/uL Normal 2.0-7.7 [facility] Comment on above: Performed By: #### L 100.0100, L500.2500, L503.7505, L500.3400, L501.2450 #### [facility] Laboratory [address] [place], [address] Basophils/100 WBC (Bld) 0.3 % Normal 0-1 [facility] Comment on above: Performed By: #### L 100.0100, L500.2500, L503.7505, L500.3400, L501.2450 #### [facility] Laboratory [address] [place], [address] Eosinophils/100 WBC (Bld) 0.3 % Normal 0-5 [facility] Comment on above: Performed By: #### L 100.0100, L500.2500, L503.7505, L500.3400, L501.2450 #### [facility] Laboratory [address] [place], [address] Erythrocyte distribution width (RBC) [Ratio] 15.0 % High 11.6-14.6 [facility] Comment on above: Performed By: #### L 100.0100, L500.2500, L503.7505, L500.3400, L501.2450 #### [facility] Laboratory [address] [place], [address] Hematocrit (Bld) [Volume fraction] 40.6 % Normal 40-54 [facility] Comment on above: Performed By: #### L 100.0100, L500.2500, L503.7505, L500.3400, L501.2450 #### [facility] Laboratory [address] [place], [address] Hemoglobin (Bld) [Mass/Vol] 12.9 g/dL Low 13.0-16.5 [facility] Comment on above: Performed By: #### L 100.0100, L500.2500, L503.7505, L500.3400, L501.2450 #### [facility] Laboratory [address] [place], [address] IG% 0.200 Normal 0.0-0.9 [facility] Comment on above: Result Comment: IG% - Immature Granulocytes (promyelocytes, myelocytes and metamyelocytes) > 1% indicates that a LEFT SHIFT is Present. Performed By: #### L 100.0100, L500.2500, L503.7505, L500.3400, L501.2450 #### [facility] Laboratory [address] [place], [address] Lymphocytes/100 WBC (Bld) 30.6 % Normal 19-41 [facility] Comment on above: Performed By: #### L 100.0100, L500.2500, L503.7505, L500.3400, L501.2450 #### [facility] Laboratory [address] [place], [address] MCH (RBC) [Entitic mass] 33.1 pg High 27.0-32.0 [facility] Comment on above: Performed By: #### L 100.0100, L500.2500, L503.7505, L500.3400, L501.2450 #### [facility] Laboratory [address] [place], [address] MCHC (RBC) [Mass/Vol] 31.8 g/dL Low 32-36 [facility] Comment on above: Performed By: #### L 100.0100, L500.2500, L503.7505, L500.3400, L501.2450 #### [facility] Laboratory [address] [place], [address] MCV (RBC) [Entitic vol] 104.1 fL High 80-94 [facility] Comment on above: Performed By: #### L 100.0100, L500.2500, L503.7505, L500.3400, L501.2450 #### [facility] Laboratory [address] [place], [address] Monocytes/100 WBC (Bld) 9.1 % Normal 0-10 [facility] Comment on above: Performed By: #### L 100.0100, L500.2500, L503.7505, L500.3400, L501.2450 #### [facility] Laboratory [address] [place], [address] Neutrophils/100 WBC (Bld) 59.5 % Normal 47-70 [facility] Comment on above: Performed By: #### L 100.0100, L500.2500, L503.7505, L500.3400, L501.2450 #### [facility] Laboratory [address] [place], [address] Nucleated RBC (Bld) [#/Vol] 0.3 10*3/uL Normal 0-5 [facility] Comment on above: Performed By: #### L 100.0100, L500.2500, L503.7505, L500.3400, L501.2450 #### [facility] Laboratory [address] [place], [address] Platelet mean volume (Bld) [Entitic vol] 10.4 fL Normal 6.2-12.0 [facility] Comment on above: Performed By: #### L 100.0100, L500.2500, L503.7505, L500.3400, L501.2450 #### [facility] Laboratory [address] [place], [address] Platelets (Bld) [#/Vol] 219 10*3/uL Normal 150-450 [facility] Comment on above: Performed By: #### L 100.0100, L500.2500, L503.7505, L500.3400, L501.2450 #### [facility] Laboratory [address] [place], [address] RBC (Bld) [#/Vol] 3.90 10*6/uL Low 4.6-6.2 [facility] Comment on above: Performed By: #### L 100.0100, L500.2500, L503.7505, L500.3400, L501.2450 #### [facility] Laboratory [address] [place], [address] RDW SD 57.5 fl High 35.1-43.9 [facility] Comment on above: Performed By: #### L 100.0100, L500.2500, L503.7505, L500.3400, L501.2450 #### [facility] Laboratory [address] [place], [address] WBC (Bld) [#/Vol] 6.2 10*3/uL Normal 4.4-11.0 [facility] Comment on above: Performed By: #### L 100.0100, L500.2500, L503.7505, L500.3400, L501.2450 #### [facility] Laboratory [address] [place], [address] Carbon dioxide, total [Moles /volume] in Central venous bloodOrdered By: Deborah Penaloza on 01-04-2025 CO2 [Moles/Vol] 25.2 mmol/L 21.0-32.0 [facility] Chest PA and Lateralon 01-04 Chest PA and Lateral [facility] Imaging Services [address] [place] [address] Chest PA and Lateral MR#: [id number] Acct: [id number] Name: CARLO MEDINA Rep #: [id number] : 1980 M 44 From: Jamal Ford MD PCP: Care Physician,No Primary Status: [facility] Study: Chest PA and Lateral Date of Exam: 01/04/25 Exam# [id number] Ordering Dr: Deborah Penaloza DO EXAM: XR Chest, 2 Views CLINICAL INDICATION: SOB TECHNIQUE: Frontal and lateral views of the chest. COMPARISON: No relevant prior studies available. FINDINGS: LUNGS AND PLEURAL SPACES: Bibasilar atelectasis or pneumonia. No pneumothorax. HEART: Unremarkable. No cardiomegaly. MEDIASTINUM: Unremarkable. Normal mediastinal contour. BONES/JOINTS: Unremarkable. No acute fracture. RAD/Chest PA and Lateral IMPRESSION: Bibasilar atelectasis or pneumonia. Reading Location: [facility] CC: Dr. Deborah Penaloza DO; No Primary Care Physician Tire Mechanic: Signed Normal [facility] Chloride assayOrdered By: Jacob Penaloza on 01-04-2025 Chloride [Moles/Vol] 105 mmol/L 98-108 [facility] Echo Complete W/ Contraston 01-04-2025 Echo Complete W/ Contrast [facility] Cardiovascular Services [address] [place] [address] Echo Complete W/ Contrast 01/04/25 1507 MR#: [id number] Acct: [id number] Name: CARLO MEDINA Rep #: [id number] : 1980 44 From: Clark Almaraz MD Attending Dr: Dr. Anshul Lemus DO Status: ADM IN Ordering Dr: Anshul Lemus DO Date: 01/04/25 Location: U Sex: M AA Admitted: 01/04/25 Reason For Study Reason For Study: CONGESTIVE HEART FAILURE Procedure This was a 2D Doppler, Color Flow transthoracic echocardiogram. Contrast injection was performed. Exam performed portable in patient room. Left Ventricle Severely dilated left ventricle. The left ventricular ejection fraction is 15 %. Stage 3 diastolic dysfunction. There is severe global hypokinesis of the left ventricle. Right Ventricle Mildly dilated right ventricle. Mild global right ventricular systolic dysfunction. Atria The left atrium is mildly enlarged. The right atrium is moderately enlarged. Mitral Valve Normal mitral valve. Moderately severe (3+) eccentric mitral valve insufficiency. Tricuspid Valve Normal tricuspid valve. Mild (1+) tricuspid valve insufficiency. Aortic Valve Trisinus/trileaflet aortic valve. Mild (1+) aortic valve insufficiency. Pulmonic Valve Normal pulmonic valve. Mild (1+) pulmonic valve insufficiency. Great Vessels Normal aortic root. The pulmonary artery is normal size. The inferior vena cava is dilated. Pericardium/Pleural Small (<1.0 cm) pericardial effusion. Medication Diluted definity 1.5ml given slow IV push to enhance endocardial definition. MMode/2D Measurements Calculations LVIDd: 7.0 cm IVSd: 0.83 cm asc Aorta Diam: 3.2 cm LVIDs: 6.8 cm LVPWd: 1.1 cm RVDd: 5.3 cm FS: 3.4 % LAV(MOD-bp): 100.7 ml LVAd ap4: 59.7 cm2 LVAd ap2: 59.6 cm2 LAV(MOD-bp) Indexed: 49.3 ml/m2 LVLd ap4: 10.7 cm LVLd ap2: 10.0 cm LAV(MOD-sp2): 142.1 ml EDV(MOD-sp4): 277.0 ml EDV(MOD-sp2): 298.3 ml LAV(MOD-sp4): 65.5 ml EDV(sp4-el): 284.0 ml EDV(sp2-el): 301.0 ml LVAs ap4: 52.2 cm2 LVAs ap2: 51.6 cm2 LVLs ap4: 9.6 cm LVLs ap2: 9.5 cm ESV(MOD-sp4): 240.2 ml ESV(MOD-sp2): 240.4 ml ESV(sp4-el): 240.4 ml ESV(sp2-el): 237.5 ml EF(MOD-sp4): 13.3 % EF(MOD-sp2): 19.4 % EF(sp4-el): 15.4 % SV(MOD-sp4): 36.8 ml SV(MOD-sp2): 57.9 ml SV(sp4-el): 43.6 ml SI(MOD-sp4): 18.0 ml/m2 SI(MOD-sp2): 28.4 ml/m2 Ao sinus diam: 2.[address] Junction: 2.5 cm LA A4 area: 21.8 cm2 LA dimension(2D): 5.3 cm TAPSE: 1.4 cm RA A4 area: 30.1 cm2 Time Measurements MV dec time: 0.14 sec Doppler Measurements Calculations MV E max ivon: 65.4 cm/sec Lat Peak E' Ivon: 10.5 cm/sec Med Peak E' Ivon: 4.3 cm/sec MV A max ivon: 26.5 cm/sec E/E' lat: 6.2 E/E' med: 15.1 MV E/A: 2.5 MV dec slope: 475.8 cm/sec2 Ao V2 max: 95.2 cm/sec AI max ivon: 346.7 cm/sec Ao max P.6 mmHg AI max P.1 mmHg Ao V2 mean: 75.5 cm/sec AI dec slope: 105.3 cm/sec2 Ao mean P.4 mmHg AI P1/2t: 964.3 msec Ao V2 VTI: 13.8 cm AV (velocity ratio): 0.71 LV V1 max: 73.5 cm/sec PA V2 max: 51.9 cm/sec PI end-d ivon: 68.2 cm/sec LV V1 max P.2 mmHg LV V1 mean P.6 mmHg LV V1 mean: 61.1 cm/sec LV V1 VTI: 9.8 cm TR max ivon: 208.6 cm/sec TR max P.4 mmHg ECHO/Echo Complete W/ Contrast Interpretation Summary Severely dilated left ventricle. The left ventricular ejection fraction is 15 %. Stage 3 diastolic dysfunction. The inferior vena cava is dilated Mild (1+) aortic valve insufficiency. Small (<1.0 cm) pericardial effusion. Ordering Physician: Anshul Lemus Performed By: Amrita Vail RDCS 01/04/251843 Date Clark Almaraz MD CC: Dr. Anshul Lemus DO; No Primary Care Physician Date Dictated: 01/04/25 150 Date Transcribed: 01/04/251843 Tire Mechanic: Signed Normal [facility] Echocardiogram study reportO rdered By: Clark Almaraz on 01-04-2025 Study report [facility] Cardiovascular Services [address] [place] [address] Echo Complete W/ Contrast 01/04/251506 MR#: [id number] Acct: [id number] Name: CARLO MEDINA Rep #:[id number] : 1980 44 From: Clark Torrez Attending Dr: Dr. Anshul Lemus DO Status: ADM IN Ordering Dr: Anshul Lemus DO Date: Location: U Sex: M AA Admitted: 01/04/25 Reason For Study Reason For Study: CONGESTIVE HEART FAILURE Procedure This was a 2D Doppler, Color Flow transthoracic echocardiogram. Contrast injection was performed. Exam performed portable in patient room. Left Ventricle Severely dilated left ventricle. The left ventricular ejection fraction is 15 %.Stage 3 diastolic dysfunction. There is severe global hypokinesis of the left ventricle. Right Ventricle Mildly dilated right ventricle. Mild global right ventricular systolic dysfunction. Atria The left atrium is mildly enlarged. The right atrium is moderately enlarged. Mitral Valve Normal mitral valve. Moderately severe (3+) eccentric mitral valve insufficiency. Tricuspid Valve Normal tricuspid valve. Mild (1+) tricuspid valve insufficiency. Aortic Valve Trisinus/trileaflet aortic valve. Mild (1+) aortic valve insufficiency. Pulmonic Valve Normal pulmonic valve. Mild (1+) pulmonic valve insufficiency. Great Vessels Normal aortic root. The pulmonary artery is normal size. The inferior vena cava is dilated. Pericardium/Pleural Small (<1.0 cm) pericardial effusion. Medication Diluted definity 1.5ml given slow IV push to enhance endocardial definition. MMode/2D Measurements & Calculations LVIDd: 7.0 cm IVSd: 0.83 cm asc Aorta Diam: 3.2 cm LVIDs: 6.8 cm LVPWd: 1.1 cm RVDd: 5.3 cm FS: 3.4 % LAV(MOD-bp): 100.7 ml LVAd ap4: 59.7 cm2 LVAd ap2: 59.6 cm2 LAV(MOD-bp) Indexed: 49.3 ml/m2 LVLd ap4: 10.7 cm LVLd ap2: 10.0 cm LAV(MOD-sp2): 142.1 ml EDV(MOD-sp4): 277.0 ml EDV(MOD-sp2): 298.3 ml LAV(MOD-sp4): 65.5 ml EDV(sp4-el): 284.0 ml EDV(sp2-el): 301.0 ml LVAs ap4: 52.2 cm2 LVAs ap2: 51.6 cm2 LVLs ap4: 9.6 cm LVLs ap2: 9.5 cm ESV(MOD-sp4): 240.2 ml ESV(MOD-sp2): 240.4 ml ESV(sp4-el): 240.4 ml ESV(sp2-el): 237.5 ml EF(MOD-sp4): 13.3 % EF(MOD-sp2): 19.4 % EF(sp4-el): 15.4 % SV(MOD-sp4): 36.8 ml SV(MOD-sp2): 57.9 ml SV(sp4-el): 43.6 ml SI(MOD-sp4): 18.0 ml/m2 SI(MOD-sp2): 28.4 ml/m2 Ao sinus diam: 2.[address] Junction: 2.5 cm LA A4 area: 21.8 cm2 LA dimension(2D): 5.3 cm TAPSE: 1.4 cm RA A4 area: 30.1 cm2 Time Measurements MV dec time: 0.14 sec Doppler Measurements & Calculations MV E max ivon: 65.4 cm/sec Lat Peak E' Ivon: 10.5 cm/sec Med Peak E' Ivon: 4.3 cm/sec MV A max ivon: 26.5 cm/sec E/E' lat: 6.2 E/E' med: 15.1 MV E/A: 2.5 MV dec slope: 475.8 cm/sec2 Ao V2 max: 95.2 cm/sec AI max ivon: 346.7 cm/sec Ao max P.6 mmHg AI max P.1 mmHg Ao V2 mean: 75.5 cm/sec AI dec slope: 105.3 cm/sec2 Ao mean P.4 mmHg AI P1/2t: 964.3 msec Ao V2 VTI: 13.8 cm AV (velocity ratio): 0.71 LV V1 max: 73.5 cm/sec PA V2 max: 51.9 cm/sec PI end-d ivon: 68.2 cm/sec LV V1 max P.2 mmHg LV V1 mean P.6 mmHg LV V1 mean: 61.1 cm/sec LV V1 VTI: 9.8 cm TR max ivon: 208.6 cm/sec TR max P.4 mmHg ECHO/Echo Complete W/ Contrast Interpretation Summary Severely dilated left ventricle. The left ventricular ejection fraction is 15 %. Stage 3 diastolic dysfunction. The inferior vena cava is dilated Mild (1+) aortic valve insufficiency. Small (<1.0 cm) pericardial effusion. Ordering Physician: Anshul Lemus Performed By: Amrita Vail RDCS 01/04/251843 Date _ Clark Almaraz MD CC: Dr. Anshul Lemus DO; No Primary Care Physician ~ Date Dictated: 01/04/25 1507 Date Transcribed: 01/04/251843 [employer] Mechanic: Signed [facility] Work Phone: Emergency Department Summary on 01-04-2025 Emergency Department Summary [facility] Medical Records Department [address] [place] [id number] Emergency Department Summary 01/04/25 MR#: [id number] Acct: [id number] Name: CARLO MEDINA Rep #: [id number] : 1980 44 From: Deborah Penaloza DO PCP: Care Physician,No Primary Status:ADM IN Location: [place] [address] HPI History of Present Illness Chief Complaint: Shortness of Breath Informant: patient and spouse/S.O. Narrative Narrative: Patient is a 44-year-old male with ported history of heart failure who states has been out of the hospital frequently over the past few months and states that he is on Bumex andEliquis Eliquis presenting with worsening shortness of breath as well as swelling. He states he has had weight gain over the past 3 weeks with increased shortness of breath/dyspnea on exertion. Does report nonproductive cough. States he is not sleeping well at night. Denies any chest pain. States he is now having swelling in his stomach and because of this he has not had much appetite since yesterday. This prompted him to come to the emergency room. He is also having increased swelling of his legs. He states he normally receives his care through [facility], [place] because of his insurance but has had a hard time following up and getting to appointments because of transportation and the distance. States he has been compliant with his medications. Is in the process of trying to establish down here in [place]. Denies any chest pain. Denies any fever or chills. Denies any change in urination. Patient does not know what triggered his fluid overload. Note from inpatient encounter at [facility] on 10/26/2024 she is at patient has history of heart failure with reduced ejection fraction, cardiogenic shock and healthcare associated pneumonia as well as DVT. He has CKD stage IIIb as well as cirrhosis. There is a reported history of left bundle branch block, has issue with compliance of therapy and at that time wanted to be discharged home . Reported ejection fraction 15%. [facility] Medical History (Updated 01/04/25 @ 16:[address] Deborah Penaloza, ) Kidney disease Non-smoker Irregular heart beat DVT (deep venous thrombosis) CKD (chronic kidney disease) Cardiomyopathy Left bundle branch block Noncompliance Pulmonary embolism CHF (congestive heart failure) Home Medications ???Medication ???Instructions ???Recorded ???Last Taken ???Type apixaban 5 mg tablet (Eliquis) 5 mg PO BID 01/04/25 Unknown Histo ry bumetanide 1 mg tablet 1 mg PO BID 01/04/25 Unknown Histo ry isosorbide dinitrate 20 mg tablet 20 mg PO Q8H 01/04/25 Unknown His tory Allergy/AdvReac Type Severity Reaction Status Date / Time No Known Allergies Allergy Verified 01/04/25 07:32 Family History (Updated 01/04/25 @ 13:[address] Anshul Lemus DO) Father Heart disease Brother Heart disease Social History (Updated 01/04/25 @ 13:[address] Anshul Lemus DO) Smoking Status: Never smoker alcohol intake: never substance use type: does not use ROS ROS ED Constitutional Constitutional ED: Denies chills or fever(s) Eyes Eyes: Denies change in vision Cardiovascular Cardiovascular: Denies chest pain or palpitations Respiratory/Chest Respiratory/Chest: Reports cough, dyspnea and dyspnea on exertion; Denies sputum Gastrointestinal Gastrointestinal: Reports diarrhea and other; Denies abdominal pain, melena, nausea or vomiting Musculoskeletal Musculoskeletal: Denies arthralgias or myalgias Integumentary Denies rash Neurologic Neurologic: Reports weakness Hematologic/Lymphatic Hematologic/Lymphatic : Reports easy bleeding and easy bruising EXAM Physical Exam Const Vital Signs: 01/04/25 07:28 01/04/25 07:52 01/04/25 08:26 Temperature 97.0 F L Temperature Source Temporal Pulse Rate 56 L 56 L Respiratory Rate 20 H 18 Respiratory Effort Normal Non-Labored Respiratory Depth Normal Respiratory Pattern Normal Blood Pressure 128/95 H Blood Pressure Mean 106 Pulse Ox 95 100 Oxygen Delivery Method Room Air Room Air Room Air Oxygen Flow Rate (L/min) 01/04/25 09:00 01/04/25 10:23 01/04/25 11:06 Temperature Temperature Source Pulse Rate 51 L 51 L 56 L Respiratory Rate 24 H 19 H 18 Respiratory Effort Respiratory Depth Respiratory Pattern Blood Pressure 123/109 H 121/96 H Blood Pressure Mean 113 104 Pulse Ox 95 98 96 Oxygen Delivery Method Room Air Nasal Cannula Nasal Cannula Oxygen Flow Rate (L/min) 2 2 01/04/25 12:00 01/04/25 13:00 Temperature Temperature Source Pulse Rate 55 L 54 L Respiratory Rate 19 H 28 H Respiratory Effort Respiratory Depth Respiratory Pattern Blood Pressure 121/71 H Blood Pressure Mean 87 Pulse Ox 99 Oxygen Delivery Method Nasal Cannula (more content not included)... Normal [facility] Eosinophil percentageOrdered By: Deborah Penaloza on 01-04-2025 Eosinophils/100 WBC (Bld) 0.3 % 0-5 [facility] Erythrocyte distribution wid th ratioOrdered By: Deborah Penaloza on 01-04-2025 Erythrocyte distribution width (RBC) [Ratio] 15.0 % High 11.6-14.6 [facility] Erythrocyte distribution wid th standard deviationOrdered By: Deborah Penaloza on 01-04-2025 Erythrocyte distribution width (RBC) [Ratio] 57.5 fl High 35.1-43.9 [facility] Glomerular filtration rate ( GFR) estimation/1.73 sq m using serum, plasma, or whole bOrdered By: Deborah Penaloza on 01-04-2025 GFR/1.73 sq M.predicted among non-blacks MDRD (S/P/Bld) [Vol rate/Area] 40 mL/min/{1.73_m2} Low >60 [facility] Comment on above: mL/min/1.73m2 CKD-EP I Creatinine Equation (2020) H AND P Exam - [place] 01-04-2025 H&P Exam - Hospitalist [facility] Medical Records Department [address] [place] [address] H P Exam - Hospitalist 01/04/25 1351 MR#: [id number] Acct: [id number] Name: CARLO MEDINA Rep #: [id number] : 1980 44 From: Anshul Lemus DO PCP: Care Physician,No Primary Status:ADM IN Location: [facility] [id number] HPI - General General Date of Service: 01/04/25 Chief Complaint: Shortness of breath. Edema. HPI Narrative CARLO MEDINA, is a 44 M who presents with progressive shortness of breath and edema. Patient is a 44-year-old male with a history of nonischemic cardiomyopathy with an ejection fraction of 20%. States that he had a left heart catheterization that showed no obstructive coronary disease. They have attempted right heart catheterization but was unsuccessful and the patient declined further attempts. Resents with increased weight gain of about 10 pounds with period time. Has had numerous hospitalizations over at [facility] [place] and recently was over at [facility] [place] in September. It is documented throughout his charts at [facility] [place] as well as [facility] that he has a history of noncompliance. Patient at home has been taking the amantadine as well as apixaban and isosorbide. Patient has not been put on LUCRECIA inhibitors no angiotensin receptor blockers given chronic kidney disease. Because of his weight gain, shortness of breath, he presented to the ED. His BNP was 25,000, total bilirubin 4.32, direct bilirubin 2.68, creatinine 2.03. Chest x-ray shows some mild pulmonary vascular congestion but also cardiomegaly. The hospital service was contacted for admission. I did discuss with the patient if he wants to have a defibrillator that he should really be transferred elsewhere. I discussed with him at length about the indication a defibrillator because he is at higher risk of lethal cardiac arrhythmia, such as ventricular fibrillation and that would defibrillate him out if he were to sustain that. He expressed needing more time to think by that even though this was brought up to him peers in June. He had expressed apprehension about his arm limited regards to his mobility. His girlfriend was present and states that this is the first time that she has heard any of this despite him being hospice numerous times at different facilities. He again insists that he does not want defibrillator however he wants to be full code. States that anything happens that they would address that he is in the hospital. I tried to impress upon him that the concern is not necessary but we can do in the hospital what he would when he goes home. He states that he still wants time to think about it. [facility] Medical History (Updated 01/04/25 @ 14:[address] Anshul Lemus DO) CKD (chronic kidney disease) Cardiomyopathy Left bundle branch block Noncompliance Pulmonary embolism CHF (congestive heart failure) Home Medications ???Medication ???Instructions ???Recorded ???Last Taken ???Type apixaban 5 mg tablet (Eliquis) 5 mg PO BID 01/04/25 Unknown Histo ry bumetanide 1 mg tablet 1 mg PO BID 01/04/25 Unknown Histo ry isosorbide dinitrate 20 mg tablet 20 mg PO Q8H 01/04/25 Unknown His tory Allergy/AdvReac Type Severity Reaction Status Date / Time No Known Allergies Allergy Verified 01/04/25 07:32 Family History (Updated 01/04/25 @ 13:[address] Anshul Lemus DO) Father Heart disease Brother Heart disease Social History (Updated 01/04/25 @ 13:[address] Anshul Lemus DO) Smoking Status: Never smoker alcohol intake: never substance use type: does not use ROS ROS Narrative All review of systems were negative except as mentioned above in the history of present illness and the other review of systems. Vital Signs Vital Signs Vital Signs: 01/04/25 07:28 01/04/25 07:52 01/04/25 08:26 Temperature 36.1 C L Temperature Source Temporal Pulse Rate 56 L 56 L Respiratory Rate 20 H 18 Respiratory Effort Normal Non-Labored Respiratory Depth Normal Respiratory Pattern Normal Blood Pressure 128/95 H Blood Pressure Mean 106 Pulse Ox 95 100 Oxygen Delivery Method Room Air Room Air Room Air Oxygen Flow Rate (L/min) 01/04/25 09:00 01/04/25 10:23 01/04/25 11:06 Temperature Temperature Source Pulse Rate 51 L 51 L 56 L Respiratory Rate 24 H 19 H 18 Respiratory Effort Respiratory Depth Respiratory Pattern Blood Pressure 123/109 H 121/96 H Blood Pressure Mean 113 104 Pulse Ox 95 98 96 Oxygen Delivery Method Room Air Nasal Cannula Nasal Cannula Oxygen Flow Rate (L/min) 2 2 01/04/25 12:00 01/04/25 13:00 Temperature Temperature Source Pulse Rate 55 L 54 L Respiratory Rate 19 H 28 H Respiratory Effort Respiratory Depth Respiratory Pattern Blood Pressure 121/71 H Blood Pressure Mean 8 (more content not included)... Normal [facility] Hematocrit Auto (Bld) [Volum e fraction]Ordered By: Deborah Penaloza on 01-04-2025 Hematocrit (Bld) [Volume fraction] 40.6 % 40-54 [facility] Hemoglobin measurementOrdere d By: Deborah Penaloza on 01-04-2025 Hemoglobin (Bld) [Mass/Vol] 12.9 g/dL Low 13.0-16.5 [facility] Immature granulocytes/100 WB C Auto (Bld)Ordered By: Deborah Penaloza on 01-04-2025 Immature granulocytes/100 WBC (Bld) 0.200 % 0.0-0.9 [facility] Comment on above: IG% - Immature Granu locytes (promyelocytes, myelocytes and metamyelocytes) > 1% indicates that a LEFT SHIFT is Present. L499.0042on 01-04-2025 Trop T High Sen 42 ng/L High <=22 [facility] Comment on above: Performed By: #### L 499.0042 #### [facility] Laboratory [address] [place], [place], [address] L499.0043on 01-04-2025 Trop T High Sen 45 ng/L High <=22 [facility] Comment on above: Performed By: #### L 499.0043 #### [facility] [address] [place], [address] L501.4021on 01-04-2025 Trop T High Sen 45 ng/L High <=22 [facility] Comment on above: Performed By: #### L 501.4021 #### [facility] [address] [place], [address] L503.7505on 01-04-2025 Natriuretic peptide B (Bld) [Mass/Vol] 64512 pg/mL High <=450 [facility] Comment on above: Result Comment: Hear t Failure Unlikely: < 300 pg/mL Heart Failure Likely < 50 Years: > 450 pg/mL 50-75 Years: > 900 pg/mL >75 Years: > 1800 pg/mL Performed By: #### L 499.0043 #### [facility] [address] [facility] [address] Laboratory - Chemistry and C hemistry - challengeOrdered By: Deborah Penaloza on 01-04-2025 AST [Catalytic activity/Vol] 28 U/L <38 [facility] Lipaseon 01-04-2025 Lipase [Catalytic activity/Vol] 15 U/L Normal 13-75 [facility] Comment on above: Result Comment: Plea se note: LIPASE revised reference range effective 22. New Lipase methodology. Expected to produce lower values than the previous assay method. NEW Reference Range: 13 - 75 U/L Performed By: #### L 499.0043 #### [facility] [address] [facility] [address] Lipase measurementOrdered By : Deborah Penaloza on 01-04-2025 Lipase [Catalytic activity/Vol] 15 U/L 13-75 [facility] Comment on above: Please note:LIPASE r evised reference range effective 22. New Lipase methodology. Expected to produce lower values than the previous assay method. NEW Reference Range: 13 - 75 U/L Liver Profileon 01-04-2025 Albumin [Mass/Vol] 3.6 g/dL Normal 3.5-5.0 [facility] Comment on above: Performed By: #### L 499.0043 #### [facility] [address] [facility] [id number] ALK PHOS 743 U/L High 40-129 [facility] Comment on above: Performed By: #### L 499.0043 #### [facility] [address] [place], [address] ALT [Catalytic activity/Vol] 22 U/L Normal <=46 [facility] Comment on above: Performed By: #### L 499.0043 #### [facility] [address] [place], [address] AST [Catalytic activity/Vol] 28 U/L Normal <=37 [facility] Comment on above: Performed By: #### L 499.0043 #### [facility] [address] [place], [address] Bilirubin [Mass/Vol] 4.32 mg/dL High 0.00-1.30 [facility] Comment on above: Performed By: #### L 499.0043 #### [facility] [address] [place], [address] Bilirubin.direct [Mass/Vol] 2.68 mg/dL High 0.00-0.30 [facility] Comment on above: Performed By: #### L 499.0043 #### [facility] [address] [place], [address] Globulin (S) [Mass/Vol] 3.2 g/dL Normal 2.2-4.2 [facility] Comment on above: Performed By: #### L 499.0043 #### [facility] [address] [place], [address] T PROT 6.8 g/dL Normal 5.9-8.4 [facility] Comment on above: Performed By: #### L 499.0043 #### [facility] [address] [place], [address] MCV (mean corpuscular volume ) determinationOrdered By: Deborah Penaloza on 01-04-2025 MCV (RBC) [Entitic vol] 104.1 fL High 80-94 [facility] Mean corpuscular hemoglobin (MCH) determinationOrdered By: Deborah Penaloza on 01-04-2025 MCH (RBC) [Entitic mass] 33.1 pg High 27.0-32.0 [facility] Mean corpuscular hemoglobin concentration (MCHC) determinationOrdered By: Deborah Penaloza on 01-04-2025 MCHC (RBC) [Mass/Vol] 31.8 g/dL Low 32-36 [facility] Mean platelet volume determi nationOrdered By: Deborah Penaloza on 01-04-2025 Platelet mean volume (Bld) [Entitic vol] 10.4 fL 6.2-12.0 [facility] Monocyte percentageOrdered B y: Deborah Penaloza on 01-04-2025 Monocytes/100 WBC (Bld) 9.1 % 0-10 [facility] Natriuretic peptide.B prohor justin N-Terminal [Mass/volume] in Serum or PlasmaOrdered By: Deborah Penaloza on 01-04-2025 Natriuretic peptide.B prohormone N-Terminal [Mass/Vol] 44203 pg/mL High <450 [facility] Comment on above: Heart Failure Unlike ly: < 300 pg/mLHeart Failure Likely< 50 Years: > 450 pg/mL50-75 Years: > 900 pg/mL>75 Years: > 1800 pg/mL Neutrophil percentageOrdered By: Deborah Penaloza on 01-04-2025 Neutrophils/100 WBC (Bld) 59.5 % 47-70 [facility] Nucleated red blood cell per centageOrdered By: Deborah Penaloza on 01-04-2025 Nucleated RBC/100 WBC (Bld) [Ratio] 0.3 % 0-5 [facility] Platelet countOrdered By: Jacob Penaloza on 01-04-2025 Platelets (Bld) [#/Vol] 219 10*3/uL 150-450 [facility] Potassium measurement (mass/ volume)Ordered By: Deborah Penaloza on 01-04-2025 Potassium (Unsp spec) [Mass/Vol] 3.7 mmol/L 3.3-5.1 [facility] RBC Auto (Bld) [#/Vol]Ordere d By: Deborah Penaloza on 01-04-2025 RBC (Bld) [#/Vol] 3.90 10*6/uL Low 4.6-6.2 [facility] Serum creatinine measurement (mass/volume)Ordered By: Deborah Penaloza on 01-04-2025 Creatinine [Mass/Vol] 2.03 mg/dL High 0.70-1.20 [facility] Serum globulin measurementOr dered By: Deborah Penaloza on 01-04-2025 Globulin (S) [Mass/Vol] 3.2 g/dL 2.2-4.2 [facility] Serum glucose measurement (m ass/volume)Ordered By: Deborah Penaloza on 01-04-2025 Glucose [Mass/Vol] 97 mg/dL 70-99 [facility] Serum or plasma alanine de paz otransferase (ALT) measurementOrdered By: Deborah Penaloza on 01-04-2025 ALT [Catalytic activity/Vol] 22 U/L <47 [facility] Serum or plasma albumin fidel urement (mass/volume)Ordered By: Deborah Penaloza on 01-04-2025 Albumin [Mass/Vol] 3.6 g/dL 3.5-5.0 [facility] Serum or plasma alkaline nick sphatase measurementOrdered By: Deborah Penaloza on 01-04-2025 ALP [Catalytic activity/Vol] 743 U/L High 40-129 [facility] Serum or plasma calcium fidel urement (mass/volume)Ordered By: Deborah Penaloza on 01-04-2025 Calcium [Mass/Vol] 9.0 mg/dL 7.6-11.0 [facility] Serum or plasma urea nitroge n measurement (mass/volume)Ordered By: Deborah Penaloza on 01-04-2025 Urea nitrogen [Mass/Vol] 30 mg/dL High 4-19 [facility] Sodium levelOrdered By: Russell Penaloza on 01-04-2025 Sodium [Moles/Vol] 144 mmol/L 133-145 [facility] Total proteinOrdered By: Janette Penaloza on 01-04-2025 Protein [Mass/Vol] 6.8 g/dL 5.9-8.4 [facility] Troponin T.cardiac [Mass/vol ume] in Serum or Plasma by High sensitivity methodOrdered By: Deborah Penaloza on 01-04-2025 Troponin T.cardiac High sensitivity method [Mass/Vol] 45 ng/L High <22 [facility] Troponin T.cardiac High sensitivity method [Mass/Vol] 42 ng/L High <22 [facility] Troponin T.cardiac High sensitivity method [Mass/Vol] 45 ng/L High <22 [facility] White blood cell (WBC) count Ordered By: Deborah Godcecy on 01-04-2025 WBC (Bld) [#/Vol] 6.2 10*3/uL 4.4-11.0 [facility] Telephone Encounteron 2024 [employer] Interface Message Text Last visit with PCP (YUVAL GAYLE) was 09/17/2024 No future appointment with PCP (YUVAL GAYLE) Thank you. Normal [facility] Telephone Encounteron 2024 Manager Women Authentication Interface Message Text Normal [facility] Manager [employer] Authentication Interface Message Text Requested Prescriptions Pending Prescriptions Disp Refills Apixaban (ELIQUIS) 5 MG tablet 28 Tablet 0 Sig: Take 1 Tablet by mouth 2 times daily. Last visit with PCP (YUVAL GAYLE) was 09/17/2024 No future appointment with PCP (YUVAL GAYLE) Normal [facility] Telephone Encounteron 2024 [employer] Authentication Interface Message Text No response letter printed and mailed to patient Normal [facility] Telephone Encounteron 2024 Manager [employer] Authentication Interface Message Text Normal [facility] Telephone Encounteron 2024 Manager Women Authentication Interface Message Text Normal [facility] Telephone Encounteron 2024 Manager Women Authentication Interface Message Text Normal [facility] Telephone Encounteron 2024 Manager Women Authentication Interface Message Text Normal [facility] Telephone Encounteron 2024 Manager Women Authentication Interface Message Text Normal [facility] Progress Noteson 10-26-2024 Manager Women Authentication Interface Message Text Normal [facility] Manager Women Authentication Interface Message Text Discharge instructions reviewed with patient and significant other at bedside. This RN stressed importance of medication compliance and adherence to medication regimen. Significant other verbalized understanding, pt silent but nodded head. Normal [facility] Manager Women Authentication Interface Message Text Normal [facility] Manager Women Authentication Interface Message Text Pt currently refusing all due medications d/t c/o feeling nauseated. This RN offered reaching out to provider for antiemetic. Pt declines. Pt instructed to let this RN know when he feels ready to take PO medications, pt agrees. Will follow up. Normal [facility] Assessment AND Plan Noteon 0 10-25-2024 Manager Women Authentication Interface Message Text Max creatinine this stay 3.2, down trending to 1.46 which appears to be better than baseline - avoid nephrotoxic agents - repeat bmp as patient will allow Normal [facility] Manager Women Authentication Interface Message Text No leukocytosis, afebrile, stable on room air, procal elevated to 16.8 on admission Given recent hospitalization, treating for HAP - completed course of linezolid and cipro today 10/24 Normal [facility] Manager Women Authentication Interface Message Text - apixaban 5 mg po bid Normal [facility] Manager Women Authentication Interface Message Text Level 3.2 10/21 - he declined potassium PO and IV - BMP as patient will allow Normal [facility] Manager Women Authentication Interface Message Text Level 1.5 10/21 - only agreeable to mag oxide - repeat level in am Normal [facility] Manager Women Authentication Interface Message Text With hyperbili - liver clinic as an outpatient - [facility] when patient willing Normal [facility] Manager Women Authentication Interface Message Text Normal [facility] BASIC METABOLIC PANELon 04-2 Anion gap [Moles/Vol] 20 mmol/L Normal 10-20 [facility] Comment on above: Performed By: #### C H8, HEPATIC, MG ####[facility] [id number] [place], [place], Calcium [Mass/Vol] 7.7 mg/dL Low 8.6-10.3 [facility] Comment on above: Performed By: #### C H8, HEPATIC, MG ####[facility] [id number] [place], Chloride [Moles/Vol] 88 mmol/L Low 98-107 [facility] Comment on above: Performed By: #### C H8, HEPATIC, MG ####[facility] [id number] [place], CO2 [Moles/Vol] 30 mmol/L Normal 21-31 [facility] Comment on above: Performed By: #### Kelly Simon, HEPATIC, MG ####[facility] [id number] [place], Creatinine [Mass/Vol] 2.15 mg/dL High 0.70-1.30 [facility] Comment on above: Performed By: #### Kelly Simon, HEPATIC, MG ####[facility] [id number] [place], ESTIMATED GFR (CKD-EPI) 38 mL/min/1.73sqm Low >=60 [facility] Comment on above: Result Comment: 2020 CKD EPI Equation using Creatinine without RaceComment: Estimated glomerular filtration rate (eGFR) is calculated without a race coefficient. Values should be interpreted in the context of the patient's full clinical presentation.Reference:1. Berny C, Melonie M, Alecia DC, et al.. A Unifying Approach for GFR Estimation: Recommendations of the NKF-ASN Task Force on Reassessing the Inclusion of Race in Diagnosing Kidney Disease. [place] Journal of Kidney Diseases 2021;79(2):268-88.e1.2. N Engl J Med 2020 Vol. 385 Issue 19 Pages 5275-2710 Performed By: #### Kelly Simon, HEPATIC, MG ####[facility] [id number] [place], Glucose [Mass/Vol] 130 mg/dL High 74-109 [facility] Comment on above: Performed By: #### Kelly HGissel, HEPATIC, MG ####[facility] [id number] [place], Potassium [Moles/Vol] 4.0 mmol/L Normal 3.5-5.0 [facility] Comment on above: Performed By: #### Kelly Simon, HEPATIC, MG ####[facility] [id number] [place], Sodium [Moles/Vol] 134 mmol/L Low 136-145 [facility] Comment on above: Performed By: #### Kelly HGissel, HEPATIC, MG ####[facility] [id number] [place], Urea nitrogen [Mass/Vol] 60 mg/dL High 7-25 [facility] Comment on above: Performed By: #### C H8, HEPATIC, MG ####[facility] [id number] [place], Basic metabolic 2000 panelon 10-25-2024 Anion gap [Moles/Vol] 20 mmol/L 10 - 20 [facility] Calcium [Mass/Vol] 7.7 mg/dL Low 8.6 - 10. 3 mg/dL [facility] Chloride [Moles/Vol] 88 mmol/L Low 98 - 10 7 mmol/L [facility] CO2 [Moles/Vol] 30 mmol/L 21 - 31 mmol/L [facility] Creatinine [Mass/Vol] 2.15 mg/dL High 0.70 - 1.30 mg/dL [facility] GFR/1.73 sq M.predicted CKD-EPI (S/P/Bld) [Vol rate/Area] 38 Low - PINF [facility] Comment on above: 2020 CKD EPI Equatio n using Creatinine without Race Comment: Estimated glomerular filtration rate (eGFR) is calculated without a race coefficient. Values should be interpreted in the context of the patient's full clinical presentation. Reference: 1. Berny C, Melonie M, Alecia DC, et al.. A Unifying Approach for GFR Estimation: Recommendations of the NKF-ASN Task Force on Reassessing the Inclusion of Race in Diagnosing Kidney Disease. [place] Journal of Kidney Diseases 2021;79(2):268-88.e1. 2. N Engl J Med 2020 Vol. 385 Issue 19 Pages 6336-8216 Glucose [Mass/Vol] 130 mg/dL High 74 - 109 mg/dL [facility] Potassium [Moles/Vol] 4 mmol/L 3.5 - 5.0 mmol/L [facility] Sodium [Moles/Vol] 134 mmol/L Low 136 - 145 mmol/L [facility] Urea nitrogen [Mass/Vol] 60 mg/dL High 7 - 25 mg/dL [facility] CBC WITH DIFFERENTIALon 09-29 Basophils (Bld) [#/Vol] 0.07 10*3/uL 0.00 - 0.20 K/uL [facility] Basophils/100 WBC (Bld) 0.5 % NINF - 1.9 % [facility] Eosinophils (Bld) [#/Vol] 0.02 10*3/uL 0.00 - 0.70 K/uL [facility] Eosinophils/100 WBC (Bld) 0.1 % 0.1 - 4.0 % [facility] Erythrocyte distribution width (RBC) [Ratio] 16.9 % High 11.5 - 14.5 % [facility] Hematocrit (Bld) [Volume fraction] 36.8 % Low 41.0 - 53.0 % [facility] Hemoglobin (Bld) [Mass/Vol] 12.3 g/dL Low 13.9 - 16.3 g/dL [facility] Interpretation and review of laboratory results Abnormal [facility] Lymphocytes (Bld) [#/Vol] 1.95 10*3/uL 1.00 - 4.80 K/uL [facility] Lymphocytes/100 WBC (Bld) 13.8 % Low 24.0 - 44.0 % [facility] MCH (RBC) [Entitic mass] 34.9 pg High 26.0 - 34.0 pg [facility] MCHC (RBC) [Mass/Vol] 33.5 g/dL 32.0 - 35.9 g/dL [facility] MCV (RBC) [Entitic vol] 104 fL High 80 - 100 fL [facility] Monocytes (Bld) [#/Vol] 1.04 10*3/uL High 0.20 - 1.00 K/uL [facility] Monocytes/100 WBC (Bld) 7.3 % 2.0 - 11.0 % [facility] Neutrophils (Bld) [#/Vol] 11.07 10*3/uL High 1.50 - 8.00 K/uL [facility] Neutrophils/100 WBC (Bld) 78.2 % High 31.0 - 76.0 % [facility] Platelet mean volume (Bld) [Entitic vol] 9.2 fL 7.5 - 11.2 fL [facility] Platelets (Bld) [#/Vol] 226 10*3/uL 150 - 400 K/uL [facility] RBC (Bld) [#/Vol] 3.54 10*6/uL Low [facility] WBC (Bld) [#/Vol] 14.1 10*3/uL High 4.5 - 11.5 K/uL [facility] Basophils (Bld) [#/Vol] 0.07 10*3/uL Normal 0.00-0.20 [facility] Comment on above: Performed By: #### C BCDSAT ####[facility] [id number] [place], Basophils/100 WBC (Bld) 0.5 % Normal <=1.9 [facility] [place] Comment on above: Performed By: #### C BCDSAT ####[facility] [id number] [place], Eosinophils (Bld) [#/Vol] 0.02 10*3/uL Normal 0.00-0.70 [facility] [place] Comment on above: Performed By: #### C BCDSAT ####[facility] [id number] [place] [address], Eosinophils/100 WBC (Bld) 0.1 % Normal 0.1-4.0 [facility] [place] Comment on above: Performed By: #### C BCDSAT ####[facility] [id number] [place], Erythrocyte distribution width (RBC) [Ratio] 16.9 % High 11.5-14.5 [facility] [place] Comment on above: Performed By: #### C BCDSAT ####[facility] [id number] [place], Hematocrit (Bld) [Volume fraction] 36.8 % Low 41.0-53.0 [facility] [place] Comment on above: Performed By: #### C BCDSAT ####[facility] [id number] [place], Hemoglobin (Bld) [Mass/Vol] 12.3 g/dL Low 13.9-16.3 [facility] [place] Comment on above: Performed By: #### C BCDSAT ####[facility] [id number] [place], Lymphocytes (Bld) [#/Vol] 1.95 10*3/uL Normal 1.00-4.80 The [facility] Comment on above: Performed By: #### C BCDSAT ####[facility] [id number] [place], Lymphocytes/100 WBC (Bld) 13.8 % Low 24.0-44.0 The [facility] Comment on above: Performed By: #### C BCDSAT ####[facility] [id number] [place], MCH (RBC) [Entitic mass] 34.9 pg High 26.0-34.0 The [facility] Comment on above: Performed By: #### C BCDSAT ####[facility] [id number] [place], MCHC (RBC) [Mass/Vol] 33.5 g/dL Normal 32.0-35.9 The [facility] Comment on above: Performed By: #### C BCDSAT ####[facility] [id number] [place], MCV (RBC) [Entitic vol] 104 fL High 80-100 The [facility] Comment on above: Performed By: #### C BCDSAT ####[facility] [id number] [place], Monocytes (Bld) [#/Vol] 1.04 10*3/uL High 0.20-1.00 The [facility] Comment on above: Performed By: #### C BCDSAT ####[facility] [id number] [place], Monocytes/100 WBC (Bld) 7.3 % Normal 2.0-11.0 The [facility] Comment on above: Performed By: #### C BCDSAT ####[facility] [id number] [place], Neutrophils (Bld) [#/Vol] 11.07 10*3/uL High 1.50-8.00 The [facility] Comment on above: Performed By: #### C BCDSAT ####[facility] [id number] [place], Neutrophils/100 WBC (Bld) 78.2 % High 31.0-76.0 [facility] Comment on above: Performed By: #### Kelly HERNANDEZAT ####[facility] [id number] [place], Platelet mean volume (Bld) [Entitic vol] 9.2 fL Normal 7.5-11.2 [facility] Comment on above: Performed By: #### Kelly HERNANDEZAT ####[facility] [id number] [place], Platelets (Bld) [#/Vol] 226 10*3/uL Normal 150-400 [facility] Comment on above: Performed By: #### Kelly HERNANDEZAT ####[facility] [id number] [place], RBC (Bld) [#/Vol] 3.54 10*6/uL Low 4.50-5.90 [facility] [place] Comment on above: Performed By: #### Kelly HERNANDEZAT ####[facility] [id number] [place], WBC (Bld) [#/Vol] 14.1 10*3/uL High 4.5-11.5 [facility] Comment on above: Performed By: #### Kelly HERNANDEZAT ####[facility] [id number] [place], Consultson 10-25-2024 Manager Women Authentication Interface Message Text Normal [facility] Manager Women Authentication Interface Message Text Normal [facility] HEPATIC FUNCTION PANELon Albumin [Mass/Vol] 3.1 g/dL Low 3.5 - 5.7 g/dL [facility] ALP [Catalytic activity/Vol] 393 U/L High [facility] ALT [Catalytic activity/Vol] 54 U/L High [facility] AST [Catalytic activity/Vol] 48 U/L High [facility] Bilirubin [Mass/Vol] 7.3 mg/dL High 0.3 - 1 .0 mg/dL [facility] Bilirubin.direct [Mass/Vol] 3.77 mg/dL High 0.03 - 0.18 mg/dL [facility] Protein [Mass/Vol] 6 g/dL 6.0 - 8.3 g/dL [facility] [Mass/Vol] 3.1 g/dL Low 3.5-5.7 The [facility] Comment on above: Performed By: #### Kelly Simon, HEPATIC, MG ####[facility] [id number] [place], ALK 393 IU/L High 34-104 The [facility] Comment on above: Performed By: #### Kelly Simon, HEPATIC, MG ####[facility] [id number] [place], ALT [Catalytic activity/Vol] 54 U/L High 7-52 The [facility] Comment on above: Performed By: #### Kelly Simon, HEPATIC, MG ####[facility] [id number] [place], AST [Catalytic activity/Vol] 48 U/L High 13-39 The [facility] Comment on above: Performed By: #### Kelly Simon, HEPATIC, MG ####[facility] [id number] [place], Bilirubin [Mass/Vol] 7.3 mg/dL High 0.3-1.0 The [facility] Comment on above: Performed By: #### Kelly Simon, HEPATIC, MG ####[facility] [id number] [place], Bilirubin.direct [Mass/Vol] 3.77 mg/dL High 0.03-0.18 The [facility] Comment on above: Performed By: #### Kelly Simon, HEPATIC, MG ####[facility] [id number] [place], Protein [Mass/Vol] 6.0 g/dL Normal 6.0-8.3 The [facility] Comment on above: Performed By: #### Kelly Simon, HEPATIC, MG ####[facility] [id number] [place], MAGNESIUMon 10-25-2024 Interpretation and review of laboratory results Normal [facility] Magnesium [Mass/Vol] 2.1 mg/dL 1.9 - 2 .7 mg/dL [facility] [place] Magnesium [Mass/Vol] 2.1 mg/dL Normal 1.9-2.7 [facility] Comment on above: Performed By: #### C H8, HEPATIC, MG ####[facility] [id number] [place], [id number] No Panel Informationon 10-25 Interpretation and review of laboratory results Abnormal [facility] Progress Noteson 10-25-2024 Manager Women Authentication Interface Message Text Normal [facility] Manager Women Authentication Interface Message Text Normal [facility] Manager Women Authentication Interface Message Text Normal [facility] XR CHEST AP OR PA 1 VIEWon 0 10-25-2024 XR CHEST AP OR PA 1 VIEW Normal [facility] XR Chest Single viewon 10-25 EXAMINATION: XR CHES T AP OR PA 1 VIEW 10/25/2024 04:22 PM CLINICAL HISTORY: Leukocytosis ASSOCIATED DIAGNOSIS: Leukocytosis ORDERING PROVIDER: ANSHUL RITTER NOTE: COMPARISON: XR CHEST AP OR PA 1 VIEW 10/17/2024, 9:00 PM XR CHEST PA+LAT 2 VIEWS 10/13/2024, 4:38 PM FINDINGS: Lines, tubes, and devices: None. Lungs and pleura: Airspace opacity with air bronchograms persists at the right lung base, although has slightly decreased in size. There are subtle patchy opacities projecting over the lateral left upper chest, new/increased since the prior. No pneumothorax, pleural effusions or pulmonary edema. Cardiomediastinal silhouette: Enlarged but unchanged. Musculoskeletal: Degenerative spurring within the thoracic spine. IMPRESSION: Bilateral patchy airspace opacities, slightly decreased at the right lung base and increased at the left lung apex. MACRO: None RADIOLOGY Rosario William M D - 10/25/2024 EXAMINATION: XR CHEST AP OR PA 1 VIEW 10/25/2024 04:22 PM CLINICAL HISTORY: Leukocytosis ASSOCIATED DIAGNOSIS: Leukocytosis ORDERING PROVIDER: ANSHUL RITTER NOTE: COMPARISON: XR CHEST AP OR PA 1 VIEW 10/17/2024, 9:00 PM XR CHEST PA+LAT 2 VIEWS 10/13/2024, 4:38 PM FINDINGS: Lines, tubes, and devices: None. Lungs and pleura: Airspace opacity with air bronchograms persists at the right lung base, although has slightly decreased in size. There are subtle patchy opacities projecting over the lateral left upper chest, new/increased since the prior. No pneumothorax, pleural effusions or pulmonary edema. Cardiomediastinal silhouette: Enlarged but unchanged. Musculoskeletal: Degenerative spurring within the thoracic spine. IMPRESSION: Bilateral patchy airspace opacities, slightly decreased at the right lung base and increased at the left lung apex. MACRO: None [employer] Radiology Study observation (narrative) [facility] XR Chest Single viewOrdered By: Rosario William on 10-25-2024 [employer] Phone: Assessment AND Plan Noteon 0 10-24-2024 Manager Women Authentication Interface Message Text With [facility] liver clinic as an outpatient - HFP when patient willing Normal [facility] Manager Women Authentication Interface Message Text Max creatinine this stay 3.2, down trending to 1.46 which appears to be better than baseline - avoid nephrotoxic agents - repeat bmp as patient will allow Normal [facility] Manager Women Authentication Interface Message Text Normal [facility] Manager Women Authentication Interface Message Text - apixaban 5 mg po bid Normal [facility] Manager Women Authentication Interface Message Text Level 3.2 10/21 - he declined potassium PO and IV again today - BMP in am Normal [facility] Manager Women Authentication Interface Message Text Level 1.5 10/21 - only agreeable to mag oxide - repeat level in am Normal [facility] Manager Women Authentication Interface Message Text No leukocytosis, afebrile, stable on room air, procal elevated to 16.8 on admission Given recent hospitalization, treating for HAP - complete course of linezolid and cipro today (d7/7) Normal [facility] Progress Noteson 10-24-2024 Manager Women Authentication Interface Message Text Normal [facility] Assessment AND Plan Noteon 0 10-23-2024 Manager Women Authentication Interface Message Text Level 3.2 10/21 - he declined potassium PO and IV again today - BMP in am Normal [facility] Manager Women Authentication Interface Message Text With [facility] as an outpatient - HFP when patient willing Normal [facility] Manager Women Authentication Interface Message Text Level 1.5 10/21 - only agreeable to mag oxide - repeat level in am Normal [facility] Manager Women Authentication Interface Message Text - apixaban 5 mg po bid Normal [facility] Manager Women Authentication Interface Message Text Normal [facility] Manager Women Authentication Interface Message Text No leukocytosis, afebrile, stable on room air, procal elevated to 16.8 on admission Given recent hospitalization, treating for HAP - complete course of linezolid and cipro today (d7/7) Normal [facility] Manager Women Authentication Interface Message Text Max creatinine this stay 3.2, down trending to 1.46 which appears to be better than baseline - avoid nephrotoxic agents - repeat bmp as patient will allow Normal [facility] Progress Noteson 10-23-2024 Manager Women Authentication Interface Message Text Normal [facility] Manager Women Authentication Interface Message Text Normal [facility] Manager Women Authentication Interface Message Text Normal [facility] Assessment AND Plan Noteon 0 10-22-2024 Manager Women Authentication Interface Message Text [facility] - HFP when patient willing Normal [facility] Manager Women Authentication Interface Message Text Echo with LVEF 15% - Bumex 1 mg daily - will restart today - isordil 20 mg tid - patient refusing - patient declining further medication titration - monitor on tele if agreeable - follow up with heart failure as an outpatient - continue GOC discussions Normal [facility] Manager Women Authentication Interface Message Text No leukocytosis, afebrile, stable on room air, procal elevated to 16.8 on admission Given recent hospitalization, treating for HAP - continue linezolid and cipro (d6/7) Normal [facility] Manager Women Authentication Interface Message Text Level 1.5 10/21 - only agreeable to mag oxide - repeat level in am Normal [facility] Manager Women Authentication Interface Message Text Level 3.2 10/21 - he declined potassium PO and IV again today - BMP in am Normal [facility] Manager Women Authentication Interface Message Text - apixaban 5 mg po bid Normal [facility] Manager Women Authentication Interface Message Text Max creatinine this stay 3.2, down trending to 1.46 which appears to be better than baseline - avoid nephrotoxic agents - repeat bmp in am Normal [facility] Consultson 10-22-2024 Manager Women Authentication Interface Message Text Normal [facility] Progress Noteson 10-22-2024 Manager Women Authentication Interface Message Text Normal [facility] Manager Women Authentication Interface Message Text SOCIAL WORK Per interdisciplinary rounds, pt is not medically cleared for discharge. NIR is 10/23/24. Plan is for pt to discharge home with no needs. SW will continue to follow. No weekend SW needs. Selena Feliz ADVANCED DEVELOPER, GLIDING [employer] INSTRUCTOR Inpatient Community Health Nurse Normal The [facility] Manager Women Authentication Interface Message Text Normal [facility] Assessment AND Plan Noteon 0 10-21-2024 Manager Women Authentication Interface Message Text Echo with LVEF 15% - Bumex 1 mg daily on hold - consider restarting in am - isordil 20 mg tid - patient declining further medication titration - monitor on tele if agreeable - follow up with heart failure as an outpatient - continue GOC discussion Normal [facility] Manager Women Authentication Interface Message Text Level 1.5 this am - only agreeable to mag oxide - repeat level in am Normal The [facility] Manager Women Authentication Interface Message Text - apixaban 5 mg po bid Normal The [facility] Manager Women Authentication Interface Message Text Level 3.2 - he declined potassium PO and IV - BMP in am Normal The [facility] Manager Women Authentication Interface Message Text With hyperb[facility] - liver clinic as an outpatient - HFP in am Normal The [facility] Manager Women Authentication Interface Message Text Max creatinine this stay 3.2, down trending to 1.46 which appears to be better than baseline - avoid nephrotoxic agents - repeat bmp in am Normal The [facility] Manager Women Authentication Interface Message Text No leukocytosis, afebrile, stable on room air, procal elevated to 16.8 Given recent hospitalization, treating for HAP - continue linezolid and cipro Normal The [employer] [facility] Manager Women Authentication Interface Message Text Managed in the cicu, at this time has resolved Normal The [employer] [facility] BASIC METABOLIC PANELon 04-2 Anion gap [Moles/Vol] 17 mmol/L Normal 10-20 The [facility] Comment on above: Performed By: #### H MG TICO, CH8 ####[facility] [id number] [place], [address] Calcium [Mass/Vol] 7.7 mg/dL Low 8.6-10.3 The [facility] Comment on above: Performed By: #### H TICO MG, CH8 ####[facility] [id number] [place], Chloride [Moles/Vol] 96 mmol/L Low 98-107 [facility] Comment on above: Performed By: #### H TICO MG, CH8 ####[facility] [id number] [place], CO2 [Moles/Vol] 32 mmol/L High 21-31 [facility] Comment on above: Performed By: #### H TICO MG, CH8 ####S PATHOLOGY [id number] [place], Creatinine [Mass/Vol] 1.46 mg/dL High 0.70-1.30 [facility] Comment on above: Performed By: #### H TICO MG, CH8 ####S PATHOLOGY [id number] [place], ESTIMATED GFR (CKD-EPI) 60 mL/min/1.73sqm Normal >=60 The [facility] CenterAl[facility] HoldingsH[facility] Comment on above: Result Comment: 2020 CKD EPI Equation using Creatinine without RaceComment: Estimated glomerular filtration rate (eGFR) is calculated without a race coefficient. Values should be interpreted in the context of the patient's full clinical presentation.Reference:1. Berny C, Melonie M, Alecia BABCOCK, et al.. A Unifying Approach for GFR Estimation: Recommendations of the NKF-ASN Task Force on Reassessing the Inclusion of Race in Diagnosing Kidney Disease. [place] Journal of Kidney Diseases 2021;79(2):268-88.e1.2. N Engl J Med 2020 Vol. 385 Issue 19 Pages 3825-2761 Performed By: #### H TICO MG, CH8 ####[facility] [id number] [place], Glucose [Mass/Vol] 131 mg/dL High 74-109 The [facility] Comment on above: Performed By: #### H EPAMISAEL MG, CH8 ####[facility] [id number] [place], Potassium [Moles/Vol] 3.2 mmol/L Low 3.5-5.0 The [facility] Comment on above: Performed By: #### H MG DOSHI CH8 ####S PATHOLOGY YFILLRULKC3921 [place], Sodium [Moles/Vol] 142 mmol/L Normal 136-145 [facility] Comment on above: Performed By: #### H MG DOSHI CH8 ####S PATHOLOGY [id number] [place], Urea nitrogen [Mass/Vol] 52 mg/dL High 7-25 [facility] Comment on above: Performed By: #### H MG DOSHI CH8 ####S PATHOLOGY [id number] [place], Basic metabolic 2000 panelon 10-21-2024 Anion gap [Moles/Vol] 17 mmol/L 10 - 20 [facility] Calcium [Mass/Vol] 7.7 mg/dL Low 8.6 - 10. 3 mg/dL [facility] Chloride [Moles/Vol] 96 mmol/L Low 98 - 10 7 mmol/L [facility] CO2 [Moles/Vol] 32 mmol/L High 21 - 31 mmol/L [facility] Creatinine [Mass/Vol] 1.46 mg/dL High 0.70 - 1.30 mg/dL [facility] GFR/1.73 sq M.predicted CKD-EPI (S/P/Bld) [Vol rate/Area] 60 - PINF [facility] Comment on above: 2020 CKD EPI Equatio n using Creatinine without Race Comment: Estimated glomerular filtration rate (eGFR) is calculated without a race coefficient. Values should be interpreted in the context of the patient's full clinical presentation. Reference: 1. Berny C, Melonie M, Alecia DC, et al.. A Unifying Approach for GFR Estimation: Recommendations of the NKF-ASN Task Force on Reassessing the Inclusion of Race in Diagnosing Kidney Disease. [place] Journal of Kidney Diseases 202;79(2):268-88.e1. 2. N Engl J Med 2020 Vol. 385 Issue 19 Pages 5358-4310 Glucose [Mass/Vol] 131 mg/dL High 74 - 109 mg/dL [facility] Potassium [Moles/Vol] 3.2 mmol/L Low 3.5 - 5.0 mmol/L [facility] Sodium [Moles/Vol] 142 mmol/L 136 - 145 mmol/L [facility] Urea nitrogen [Mass/Vol] 52 mg/dL High 7 - 25 mg/dL [facility] CBC WITH DIFFERENTIALon 09-29 Basophils (Bld) [#/Vol] 0.02 10*3/uL 0.00 - 0.20 K/uL [facility] Basophils/100 WBC (Bld) 0.2 % NINF - 1.9 % [facility] Eosinophils (Bld) [#/Vol] 0.02 10*3/uL 0.00 - 0.70 K/uL [facility] Eosinophils/100 WBC (Bld) 0.2 % 0.1 - 4.0 % [facility] Erythrocyte distribution width (RBC) [Ratio] 17 % High 11.5 - 14.5 % [facility] Hematocrit (Bld) [Volume fraction] 40.8 % Low 41.0 - 53.0 % [facility] Hemoglobin (Bld) [Mass/Vol] 13.8 g/dL Low 13.9 - 16.3 g/dL [facility] Interpretation and review of laboratory results Abnormal [facility] Lymphocytes (Bld) [#/Vol] 0.84 10*3/uL Low 1.00 - 4.80 K/uL [facility] Lymphocytes/100 WBC (Bld) 8.7 % Low 24.0 - 44.0 % [facility] MCH (RBC) [Entitic mass] 35.2 pg High 26.0 - 34.0 pg [facility] MCHC (RBC) [Mass/Vol] 33.7 g/dL 32.0 - 35.9 g/dL [facility] MCV (RBC) [Entitic vol] 105 fL High 80 - 100 fL [facility] Monocytes (Bld) [#/Vol] 0.5 10*3/uL 0.20 - 1.00 K/uL [facility] Monocytes/100 WBC (Bld) 5.1 % 2.0 - 11.0 % [facility] Neutrophils (Bld) [#/Vol] 8.32 10*3/uL High 1.50 - 8.00 K/uL [facility] Neutrophils/100 WBC (Bld) 85.8 % High 31.0 - 76.0 % [facility] mean volume (Bld) [Entitic vol] 8.3 fL 7.5 - 11.2 fL [facility] Platelets (Bld) [#/Vol] 162 10*3/uL 150 - 400 K/uL [facility] RBC (Bld) [#/Vol] 3.9 10*6/uL Low [facility] WBC (Bld) [#/Vol] 9.7 10*3/uL 4.5 - 11.5 K/uL [facility] Basophils (Bld) [#/Vol] 0.02 10*3/uL Normal 0.00-0.20 [facility] Comment on above: Performed By: #### C BCDSAT ####[facility] PATHOLOGY [id number] [place] [address], Basophils/100 WBC (Bld) 0.2 % Normal <=1.9 The [facility] Comment on above: Performed By: #### C BCDSAT ####[facility] PATHOLOGY [id number] [place] [address], Eosinophils (Bld) [#/Vol] 0.02 10*3/uL Normal 0.00-0.70 The [facility] Comment on above: Performed By: #### C BCDSAT ####[facility] PATHOLOGY [id number] [place], Eosinophils/100 WBC (Bld) 0.2 % Normal 0.1-4.0 The [facility] Comment on above: Performed By: #### C BCDSAT ####[facility] PATHOLOGY [id number] [place], Erythrocyte distribution width (RBC) [Ratio] 17.0 % High 11.5-14.5 The [facility] Comment on above: Performed By: #### C BCDSAT ####[facility] PATHOLOGY [id number] [place] [address], Hematocrit (Bld) [Volume fraction] 40.8 % Low 41.0-53.0 The [facility] [place] Comment on above: Performed By: #### C BCDSAT ####[facility] PATHOLOGY [id number] [place], Hemoglobin (Bld) [Mass/Vol] 13.8 g/dL Low 13.9-16.3 The [facility] Comment on above: Performed By: #### C BCDSAT ####[facility] PATHOLOGY [id number] [place], Lymphocytes (Bld) [#/Vol] 0.84 10*3/uL Low 1.00-4.80 The [facility] Comment on above: Performed By: #### C BCDSAT ####[facility] PATHOLOGY [id number] [place], Lymphocytes/100 WBC (Bld) 8.7 % Low 24.0-44.0 The [facility] [place] Comment on above: Performed By: #### C BCDSAT ####[facility] PATHOLOGY [id number] [place], MCH (RBC) [Entitic mass] 35.2 pg High 26.0-34.0 The [facility] [place] Comment on above: Performed By: #### C BCDSAT ####[facility] PATHOLOGY [id number] [place], MCHC (RBC) [Mass/Vol] 33.7 g/dL Normal 32.0-35.9 The [facility] Comment on above: Performed By: #### C BCDSAT ####[facility] PATHOLOGY [id number] [place], MCV (RBC) [Entitic vol] 105 fL High 80-100 The [facility] Comment on above: Performed By: #### C BCDSAT ####[facility] PATHOLOGY [id number] [place], Monocytes (Bld) [#/Vol] 0.50 10*3/uL Normal 0.20-1.00 The [facility] Comment on above: Performed By: #### C BCDSAT ####[facility] PATHOLOGY [id number] [place], Monocytes/100 WBC (Bld) 5.1 % Normal 2.0-11.0 The [facility] [place] Comment on above: Performed By: #### Kelly HERNANDEZAT ####[facility] PATHOLOGY [id number] [place], Neutrophils (Bld) [#/Vol] 8.32 10*3/uL High 1.50-8.00 The [facility] Center[facility] Comment on above: Performed By: #### Kelly HERNANDEZAT ####[facility] PATHOLOGY [id number] [place], Neutrophils/100 WBC (Bld) 85.8 % High 31.0-76.0 The [facility] [place] Comment on above: Performed By: #### Kelly HERNANDEZAT ####[facility] PATHOLOGY [id number] [place], Platelet mean volume (Bld) [Entitic vol] 8.3 fL Normal 7.5-11.2 The [facility] [place] Comment on above: Performed By: #### Kelly HERNANDEZAT ####[facility] PATHOLOGY [id number] [place], Platelets (Bld) [#/Vol] 162 10*3/uL Normal 150-400 The [facility] [place] Comment on above: Performed By: #### Kelly HERNANDEZAT ####[facility] PATHOLOGY [id number] [place], RBC (Bld) [#/Vol] 3.90 10*6/uL Low 4.50-5.90 The [facility] [place] Comment on above: Performed By: #### Kelly HERNANDEZAT ####[facility] PATHOLOGY [id number] [place], WBC (Bld) [#/Vol] 9.7 10*3/uL Normal 4.5-11.5 The [facility] [place] Comment on above: Performed By: #### Kelly HERNANDEZAT ####[facility] PATHOLOGY [id number] [place], Disruptive Behavior Progress Noteon 10-21-2024 Manager Women Authentication Interface Message Text Normal [facility] HEPATIC FUNCTION PANELon Albumin [Mass/Vol] 3.1 g/dL Low 3.5 - 5.7 g/dL [facility] ALP [Catalytic activity/Vol] 348 U/L High [facility] ALT [Catalytic activity/Vol] 43 U/L [facility] AST [Catalytic activity/Vol] 60 U/L High [facility] Bilirubin [Mass/Vol] 6.4 mg/dL High 0.3 - 1 .0 mg/dL [facility] Bilirubin.direct [Mass/Vol] 3.54 mg/dL High 0.03 - 0.18 mg/dL [facility] Protein [Mass/Vol] 6.3 g/dL 6.0 - 8.3 g/dL [facility] Albumin [Mass/Vol] 3.1 g/dL Low 3.5-5.7 The [facility] Comment on above: Performed By: #### MG GUNDERSON CH8 ####[facility] PATH[facility] [id number] [place], ALK 348 IU/L High 34-104 The [facility] Comment on above: Performed By: #### MG GUNDERSON CH8 ####[facility] PATHOLOGY [id number] [place], ALT [Catalytic activity/Vol] 43 U/L Normal 7-52 The [facility] Comment on above: Performed By: #### MG GUNDERSON CH8 ####[facility] PATHOLOGY [id number] [place], AST [Catalytic activity/Vol] 60 U/L High 13-39 The [facility] Comment on above: Performed By: #### MG GUNDERSON CH8 ####S PATHOLOGY [id number] [place], Bilirubin [Mass/Vol] 6.4 mg/dL High 0.3-1.0 The [facility] Comment on above: Performed By: #### MG GUNDERSON CH8 ####S PATHOLOGY [id number] [place], Bilirubin.direct [Mass/Vol] 3.54 mg/dL High 0.03-0.18 The [facility] Comment on above: Performed By: #### MG GUNDERSON CH8 ####S PATHOLOGY [id number] [place], Protein [Mass/Vol] 6.3 g/dL Normal 6.0-8.3 [facility] Comment on above: Performed By: #### H EPATIC, MG, CH8 ####[facility] [id number] [place], MAGNESIUMon 10-21-2024 Magnesium [Mass/Vol] 1.5 mg/dL Low 1.9 - 2 .7 mg/dL [facility] Magnesium [Mass/Vol] 1.5 mg/dL Low 1.9-2.7 [facility] Comment on above: Performed By: #### H EPATIC, MG, CH8 ####[facility] [id number] [place], No Panel Informationon 10-21 Interpretation and review of laboratory results [facility]normal [facility] Progress Noteson 10-21-2024 Manager Women Authentication Interface Message Text Normal The [facility] Manager Women Authentication Interface Message Text Normal The [facility] CenterroThe [employer] [facility] Manager Women Authentication Interface Message Text Patients potassium is 3.2. RN attempted to administer ordered potassium replacement. Patient refused medication. Pt educated on risks of not taking medication with a low potassium. Dr. Myers notified. Normal The [facility] Manager Women Authentication Interface Message Text Per interdisciplinary rounds, GOC conversation to take place with pt today. SW will follow for outcome of this meeting. JAMIE Ford, GLIDING PILOT INSTRUCTOR Inpatient Community Health Nurse Normal The [facility]roThe [facility] [facility] Manager Women Authentication Interface Message Text Normal The [facility]roThe [employer] [facility] Transfer Noteon 10-21-2024 Manager Women Authentication Interface Message Text Normal [facility] BASIC METABOLIC PANELon 09-29 Anion gap [Moles/Vol] 19 mmol/L Normal 10-20 The [facility]ro[facility] Comment on above: Performed By: #### C H8, HEPATIC, MG ####[facility] [id number] [place], Calcium [Mass/Vol] 8.4 mg/dL Low 8.6-10.3 The [facility]ro[facility] Comment on above: Performed By: #### C H8, HEPATIC, MG ####[facility] [id number] [place], Chloride [Moles/Vol] 99 mmol/L Normal 98-107 The [facility] Comment on above: Performed By: #### Kelly Simon, HEPATIC, MG ####[facility] [id number] [place], CO2 [Moles/Vol] 29 mmol/L Normal 21-31 [facility] Comment on above: Performed By: #### Kelly Simon, HEPATIC, MG ####[facility] PATH[facility] [id number] [place], Creatinine [Mass/Vol] 2.20 mg/dL High 0.70-1.30 The [facility] Comment on above: Performed By: #### Kelly Simon, HEPATIC, MG ####[facility] PATH[facility] [id number] [place], ESTIMATED GFR (CKD-EPI) 36 mL/min/1.73sqm Low >=60 The [facility]ro[facility] Comment on above: Result Comment: 2020 CKD EPI Equation using Creatinine without RaceComment: Estimated glomerular filtration rate (eGFR) is calculated without a race coefficient. Values should be interpreted in the context of the patient's full clinical presentation.Reference:1. Berny C, Basonia M, Alecia BABCOCK, et al.. A Unifying Approach for GFR Estimation: Recommendations of the NKF-ASN Task Force on Reassessing the Inclusion of Race in Diagnosing Kidney Disease. [place] Journal of Kidney Diseases 2021;79(2):268-88.e1.2. N Engl J Med 2020 Vol. 385 Issue 19 Pages 4942-0887 Performed By: #### C H8, HEPATIC, MG ####[facility] [id number] [place], Glucose [Mass/Vol] 117 mg/dL High 74-109 The [facility]ro[facility] Comment on above: Performed By: #### Kelly H8, HEPATIC, MG ####[facility] PATH[facility] [id number] [place], Potassium [Moles/Vol] 3.5 mmol/L Normal 3.5-5.0 [facility] Comment on above: Performed By: #### C H8, HEPATIC, MG ####[facility] PATH[facility] [id number] [place], Sodium [Moles/Vol] 143 mmol/L Normal 136-145 [facility] Comment on above: Performed By: #### C H8, HEPATIC, MG ####[facility] [id number] [place], Urea nitrogen [Mass/Vol] 72 mg/dL High 7-25 [facility] Comment on above: Performed By: #### C H8, HEPATIC, MG ####[facility] [id number] [place], Basic metabolic 2000 panelOr dered By: Jami Xie on 10-20-2024 Anion gap [Moles/Vol] 19 mmol/L 10 - 20 [facility] Calcium [Mass/Vol] 8.4 mg/dL Low 8.6 - 10. 3 mg/dL [facility] Chloride [Moles/Vol] 99 mmol/L 98 - 10 7 mmol/L [facility] CO2 [Moles/Vol] 29 mmol/L 21 - 31 mmol/L [facility] Creatinine [Mass/Vol] 2.2 mg/dL High 0.70 - 1.30 mg/dL [facility] GFR/1.73 sq M.predicted CKD-EPI (S/P/Bld) [Vol rate/Area] 36 Low - PINF [facility] Comment on above: 2020 CKD EPI Equatio n using Creatinine without Race Comment: Estimated glomerular filtration rate (eGFR) is calculated without a race coefficient. Values should be interpreted in the context of the patient's full clinical presentation. Reference: 1. Berny C, Melonie M, Alecia BABCOCK, et al.. A Unifying Approach for GFR Estimation: Recommendations of the NKF-ASN Task Force on Reassessing the Inclusion of Race in Diagnosing Kidney Disease. [place] Journal of Kidney Diseases 202;79(2):268-88.e1. 2. N Engl J Med 2020 Vol. 385 Issue 19 Pages 4814-1163 Glucose [Mass/Vol] 117 mg/dL High 74 - 109 mg/dL [facility] Interpretation and review of laboratory results Abnormal [facility] Potassium [Moles/Vol] 3.5 mmol/L 3.5 - 5.0 mmol/L [facility] Sodium [Moles/Vol] 143 mmol/L 136 - 145 mmol/L [facility] Urea nitrogen [Mass/Vol] 72 mg/dL High 7 - 25 mg/dL [facility] CBC WITH DIFFERENTIALon 09-29 Basophils (Bld) [#/Vol] 0.07 10*3/uL 0.00 - 0.20 K/uL [facility] Basophils/100 WBC (Bld) 0.6 % NINF - 1.9 % [facility] Eosinophils (Bld) [#/Vol] 0.02 10*3/uL 0.00 - 0.70 K/uL [facility] Eosinophils/100 WBC (Bld) 0.2 % 0.1 - 4.0 % [facility] Erythrocyte distribution width (RBC) [Ratio] 17.2 % High 11.5 - 14.5 % [facility] Hematocrit (Bld) [Volume fraction] 44.2 % 41.0 - 53.0 % [facility] Hemoglobin (Bld) [Mass/Vol] 14.9 g/dL 13.9 - 16.3 g/dL [facility] Interpretation and review of laboratory results Abnormal [facility] Lymphocytes (Bld) [#/Vol] 0.95 10*3/uL Low 1.00 - 4.80 K/uL [facility] Lymphocytes/100 WBC (Bld) 8.2 % Low 24.0 - 44.0 % [facility] MCH (RBC) [Entitic mass] 34.9 pg High 26.0 - 34.0 pg [facility] MCHC (RBC) [Mass/Vol] 33.7 g/dL 32.0 - 35.9 g/dL [facility] MCV (RBC) [Entitic vol] 104 fL High 80 - 100 fL [facility] Monocytes (Bld) [#/Vol] 0.6 10*3/uL 0.20 - 1.00 K/uL [facility] Monocytes/100 WBC (Bld) 5.2 % 2.0 - 11.0 % [facility] Neutrophils (Bld) [#/Vol] 9.91 10*3/uL High 1.50 - 8.00 K/uL [facility] Neutrophils/100 WBC (Bld) 85.8 % High 31.0 - 76.0 % [facility] Platelet mean volume (Bld) [Entitic vol] 8.5 fL 7.5 - 11.2 fL [facility] Platelets (Bld) [#/Vol] 142 10*3/uL Low 150 - 400 K/uL [facility] RBC (Bld) [#/Vol] 4.27 10*6/uL Low [facility] WBC (Bld) [#/Vol] 11.5 10*3/uL 4.5 - 11.5 K/uL [facility] Basophils (Bld) [#/Vol] 0.07 10*3/uL Normal 0.00-0.20 [facility] Comment on above: Performed By: #### C BCDSAT ####[facility] PATHOLOGY [id number] [place], Basophils/100 WBC (Bld) 0.6 % Normal <=1.9 The [facility] Comment on above: Performed By: #### C MARYAT ####[facility] PATHOLOGY [id number] [place] [address], Eosinophils (Bld) [#/Vol] 0.02 10*3/uL Normal 0.00-0.70 The [facility] Comment on above: Performed By: #### Kelly HERNANDEZAT ####[facility] PATHOLOGY [id number] [place] [address], Eosinophils/100 WBC (Bld) 0.2 % Normal 0.1-4.0 The [facility] Comment on above: Performed By: #### C MARYAT ####[facility] PATHOLOGY [id number] [place] [address], Erythrocyte distribution width (RBC) [Ratio] 17.2 % High 11.5-14.5 The [facility] Comment on above: Performed By: #### C MARYAT ####S PATHOLOGY [id number] [place] [address], Hematocrit (Bld) [Volume fraction] 44.2 % Normal 41.0-53.0 The [facility] Comment on above: Performed By: #### C MARYAT ####[facility] PATHOLOGY [id number] [place] [address], Hemoglobin (Bld) [Mass/Vol] 14.9 g/dL Normal 13.9-16.3 [facility] Comment on above: Performed By: #### C MARYAT ####[facility] PATHOLOGY [id number] [place], Lymphocytes (Bld) [#/Vol] 0.95 10*3/uL Low 1.00-4.80 [facility] Comment on above: Performed By: #### C MARYAT ####[facility] PATHOLOGY [id number] [place], Lymphocytes/100 WBC (Bld) 8.2 % Low 24.0-44.0 [facility] Comment on above: Performed By: #### C MARYAT ####[facility] PATHOLOGY [id number] [place], MCH (RBC) [Entitic mass] 34.9 pg High 26.0-34.0 The [facility] Centerro[facility] Comment on above: Performed By: #### C MARYAT ####[facility] PATHOLOGY [id number] [place] [address], MCHC (RBC) [Mass/Vol] 33.7 g/dL Normal 32.0-35.9 The [facility] Comment on above: Performed By: #### C MARYAT ####[facility] PATHOLOGY [id number] [place] [address], MCV (RBC) [Entitic vol] 104 fL High 80-100 The [facility] Comment on above: Performed By: #### C MARYAT ####[facility] PATHOLOGY [id number] [place], Monocytes (Bld) [#/Vol] 0.60 10*3/uL Normal 0.20-1.00 The [facility] Comment on above: Performed By: #### C BCSHEYLAAT ####S PATHOLOGY [id number] [place], Monocytes/100 WBC (Bld) 5.2 % Normal 2.0-11.0 [facility] Comment on above: Performed By: #### C BCDSAT ####[facility] [id number] [place], Neutrophils (Bld) [#/Vol] 9.91 10*3/uL High 1.50-8.00 The [facility] Comment on above: Performed By: #### C BCDSAT ####[facility] PATHOLOGY [id number] [place], Neutrophils/100 WBC (Bld) 85.8 % High 31.0-76.0 The [facility] Comment on above: Performed By: #### C BCDSAT ####[facility] PATHOLOGY [id number] [place], Platelet mean volume (Bld) [Entitic vol] 8.5 fL Normal 7.5-11.2 [facility] Comment on above: Performed By: #### C BCDSAT ####[facility] PATHOLOGY [id number] [place], Platelets (Bld) [#/Vol] 142 10*3/uL Low 150-400 [facility] Comment on above: Performed By: #### C BCDSAT ####[facility] PATHOLOGY [id number] [place], RBC (Bld) [#/Vol] 4.27 10*6/uL Low 4.50-5.90 [facility] Comment on above: Performed By: #### C BCDSAT ####[facility] PATHOLOGY [id number] [place], [place], WBC (Bld) [#/Vol] 11.5 10*3/uL Normal 4.5-11.5 [facility] Comment on above: Performed By: #### C BCDSAT ####[facility] PATHOLOGY [id number] [place], [place], Disruptive Behavior Progress Noteon 10-20-2024 Manager Women Authentication Interface Message Text Normal [facility] Manager Women Authentication Interface Message Text Normal [facility] EKG 12 LEAD - PERFORMon 04-2 Diagnosis Sinus bradycardia Left atrial enlargement Right superior axis deviation Left bundle branch block Abnormal ECG When compared with ECG of 17-OCT-2024 18:47, Vent. rate has decreased BY 64 BPM Left bundle branch block has replaced Right bundle branch block Borderline criteria for Lateral infarct are no longer Present Confirmed by MACARENA CHAVEZ ([id number]) on 10/20/2024 10:26:09 PM [facility] P wave Atrium by EKG 53 BPM Metr [facility] P wave axis 70 degrees [facility] Interval 154 ms [facility] Q-T interval 546 ms [facility] Q-T interval corrected 512 ms [facility] QRS axis 226 degrees [facility] QRS duration 170 ms [facility] T wave axis 18 degrees [facility] HEPATIC FUNCTION PANELon Albumin [Mass/Vol] 3.3 g/dL Low 3.5 - 5.7 g/dL [facility] ALP [Catalytic activity/Vol] 359 U/L High [facility] ALT [Catalytic activity/Vol] 33 U/L [facility] AST [Catalytic activity/Vol] 50 U/L High [facility] Bilirubin [Mass/Vol] 7.9 mg/dL High 0.3 - 1 .0 mg/dL [facility] Bilirubin.direct [Mass/Vol] 4.05 mg/dL High 0.03 - 0.18 mg/dL [facility] Interpretation and review of laboratory results Abnormal [facility] Protein [Mass/Vol] 6.4 g/dL 6.0 - 8.3 g/dL [facility] Albumin [Mass/Vol] 3.3 g/dL Low 3.5-5.7 The [facility] Comment on above: Performed By: #### C H8, HEPATIC, MG ####[facility] [id number] [place], [place], ALK 359 IU/L High 34-104 The [facility] Comment on above: Performed By: #### C H8, HEPATIC, MG ####[facility] [id number] [place], ALT [Catalytic activity/Vol] 33 U/L Normal 7-52 The [facility] Comment on above: Performed By: #### C H8, HEPATIC, MG ####[facility] [id number] [place], AST [Catalytic activity/Vol] 50 U/L High 13-39 The [facility] Comment on above: Performed By: #### C H8, HEPATIC, MG ####[facility] [id number] [place], Bilirubin [Mass/Vol] 7.9 mg/dL High 0.3-1.0 The [facility] Comment on above: Performed By: #### C H8, HEPATIC, MG ####[facility] [id number] [place], Bilirubin.direct [Mass/Vol] 4.05 mg/dL High 0.03-0.18 The [facility] Comment on above: Performed By: #### C H8, HEPATIC, MG ####[facility] [id number] [place], Protein [Mass/Vol] 6.4 g/dL Normal 6.0-8.3 The [facility] Comment on above: Performed By: #### C H8, HEPATIC, MG ####[facility] PATHOLOGY [id number] [place], [place], LACTIC ACIDOrdered By: Yasmany Moran on 10-20-2024 Interpretation and review of laboratory results Abnormal [facility] Lactate [Moles/Vol] 2.1 mmol/L High 0.5 - 1. 6 mmol/L [facility] This test was developed, and its performance characteristics determined by the Department of Pathology of The [facility]. It has not been cleared or approved by the FDA. This test is used for clinical purposes only. [facility] LACTIC ACIDon 10-20-2024 CR LACT 2.1 mmol/L High 0.5-1.6 The [facility] Comment on above: Order Comment: This test was developed, and its performance characteristics determined by the Department of Pathology of The [facility]. It has not been cleared or approved by the FDA. This test is used for clinical purposes only. Performed By: #### L ACT ####[facility] [id number] [place], MAGNESIUMon 10-20-2024 Interpretation and review of laboratory results Normal [facility] Magnesium [Mass/Vol] 2.1 mg/dL 1.9 - 2 .7 mg/dL [facility] Magnesium [Mass/Vol] 2.1 mg/dL Normal 1.9-2.7 [facility] Comment on above: Performed By: #### C H8, HEPATIC, MG ####[facility] [id number] [place], No Panel Informationon 10-20 [facility] Progress Noteson 10-20-2024 Manager Women Authentication Interface Message Text Normal The [facility] Transfer Noteon 10-20-2024 Manager Women Authentication Interface Message Text Normal The [facility] Progress Noteson 10-19-2024 Manager Women Authentication Interface Message Text Normal The [facility] Manager Women Authentication Interface Message Text 1439: Informed Dr. Myers IV team unable to place any ultrasound guided IVs or obtain any blood for labs. Normal The [facility] Manager Women Authentication Interface Message Text Patient Stated can I take my bumex after my IV is done. Patient now stating can I take my bumex after I eat. I will continue to attempt to deliver medications in a timely matter. Team is aware. Normal The [facility] Manager Women Authentication Interface Message Text Normal The [facility] Manager Women Authentication Interface Message Text Normal The [facility] Manager Women Authentication Interface Message Text Normal The [facility] Manager Women Authentication Interface Message Text Normal The [facility] BASIC METABOLIC PANELon 09-29 Anion gap [Moles/Vol] 21 mmol/L High 10-20 [facility] Comment on above: Performed By: #### H EPATIC, MG, PROCAL, CH8 ####[facility] [id number] [place], Calcium [Mass/Vol] 8.7 mg/dL Normal 8.6-10.3 [facility] Comment on above: Performed By: #### H EPATIC, MG, PROCAL, CH8 ####[facility] [id number] [place], Chloride [Moles/Vol] 101 mmol/L Normal 98-107 [facility] Comment on above: Performed By: #### H EPATIC, MG, PROCAL, CH8 ####[facility] [id number] [place], CO2 [Moles/Vol] 21 mmol/L Normal 21-31 The [facility] Comment on above: Performed By: #### H MG TICO, PROCAL, CH8 ####S PATHOLOGY [id number] [place], Creatinine [Mass/Vol] 3.22 mg/dL High 0.70-1.30 [facility] Comment on above: Performed By: #### H TICO MG, PROCAL, CH8 ####S PATHOLOGY [id number] [place], ESTIMATED GFR (CKD-EPI) 23 mL/min/1.73sqm Low >=60 [facility] Comment on above: Result Comment: 2020 CKD EPI Equation using Creatinine without RaceComment: Estimated glomerular filtration rate (eGFR) is calculated without a race coefficient. Values should be interpreted in the context of the patient's full clinical presentation.Reference:1. Berny C, Melonie M, Alecia BABCOCK, et al.. A Unifying Approach for GFR Estimation: Recommendations of the NKF-ASN Task Force on Reassessing the Inclusion of Race in Diagnosing Kidney Disease. [place] Journal of Kidney Diseases 2021;79(2):268-88.e1.2. N Engl J Med 1 Vol. 385 Issue 19 Pages [id number] Performed By: #### H TICO MG, PROCAL, CH8 ####S PATHOLOGY [id number] [place], Glucose [Mass/Vol] 169 mg/dL High 74-109 The [facility] Comment on above: Performed By: #### H TICO MG, PROCAL, CH8 ####S PATHOLOGY [id number] [place], Potassium [Moles/Vol] 4.1 mmol/L Normal 3.5-5.0 [facility] Comment on above: Performed By: #### H TICO MG, PROCAL, CH8 ####[facility] [id number] [place], Sodium [Moles/Vol] 139 mmol/L Normal 136-145 [facility] Comment on above: Performed By: #### H TICO, MG, PROCAL, CH8 ####S PATHOLOGY [id number] [place], Urea nitrogen [Mass/Vol] 88 mg/dL High 7-25 The [facility] Comment on above: Performed By: #### H EPATIC, MG, PROCAL, CH8 ####[facility] [id number] [place], Basic metabolic 2000 panelon 10-18-2024 Anion gap [Moles/Vol] 21 mmol/L High 10 - 20 [facility] Calcium [Mass/Vol] 8.7 mg/dL 8.6 - 10. 3 mg/dL [facility] Chloride [Moles/Vol] 101 mmol/L 98 - 10 7 mmol/L [facility] CO2 [Moles/Vol] 21 mmol/L 21 - 31 mmol/L [facility] Creatinine [Mass/Vol] 3.22 mg/dL High 0.70 - 1.30 mg/dL [facility] GFR/1.73 sq M.predicted CKD-EPI (S/P/Bld) [Vol rate/Area] 23 Low - PINF [facility] Comment on above: 2020 CKD EPI Equatio n using Creatinine without Race Comment: Estimated glomerular filtration rate (eGFR) is calculated without a race coefficient. Values should be interpreted in the context of the patient's full clinical presentation. Reference: 1. Berny C, Melonie M, Alecia DC, et al.. A Unifying Approach for GFR Estimation: Recommendations of the NKF-ASN Task Force on Reassessing the Inclusion of Race in Diagnosing Kidney Disease. [place] Journal of Kidney Diseases 202;79(2):268-88.e1. 2. N Engl J Med 2020 Vol. 385 Issue 19 Pages 6563-9672 Glucose [Mass/Vol] 169 mg/dL High 74 - 109 mg/dL [facility] Potassium [Moles/Vol] 4.1 mmol/L 3.5 - 5.0 mmol/L [facility] Sodium [Moles/Vol] 139 mmol/L 136 - 145 mmol/L [facility] Urea nitrogen [Mass/Vol] 88 mg/dL High 7 - 25 mg/dL [facility] CBC WITH DIFFERENTIALon 09-29 Basophils (Bld) [#/Vol] 0.05 10*3/uL 0.00 - 0.20 K/uL [facility] Basophils/100 WBC (Bld) 0.4 % NINF - 1.9 % [facility] Eosinophils (Bld) [#/Vol] 0 10*3/uL 0.00 - 0.70 K/uL [facility] Eosinophils/100 WBC (Bld) 0 % Low 0.1 - 4.0 % [facility] Erythrocyte distribution width (RBC) [Ratio] 16.4 % High 11.5 - 14.5 % [facility] Hematocrit (Bld) [Volume fraction] 40.1 % Low 41.0 - 53.0 % [facility] Hemoglobin (Bld) [Mass/Vol] 13.3 g/dL Low 13.9 - 16.3 g/dL [facility] Interpretation and review of laboratory results Abnormal [facility] Lymphocytes (Bld) [#/Vol] 0.99 10*3/uL Low 1.00 - 4.80 K/uL [facility] Lymphocytes/100 WBC (Bld) 8.2 % Low 24.0 - 44.0 % [facility] MCH (RBC) [Entitic mass] 34.2 pg High 26.0 - 34.0 pg [facility] MCHC (RBC) [Mass/Vol] 33.2 g/dL 32.0 - 35.9 g/dL [facility] MCV (RBC) [Entitic vol] 103 fL High 80 - 100 fL [facility] Monocytes (Bld) [#/Vol] 0.59 10*3/uL 0.20 - 1.00 K/uL [facility] Monocytes/100 WBC (Bld) 4.9 % 2.0 - 11.0 % [facility] Neutrophils (Bld) [#/Vol] 10.45 10*3/uL High 1.50 - 8.00 K/uL [facility] Neutrophils/100 WBC (Bld) 86.6 % High 31.0 - 76.0 % [facility] Platelet mean volume (Bld) [Entitic vol] 9.6 fL 7.5 - 11.2 fL [facility] Platelets (Bld) [#/Vol] 135 10*3/uL Low 150 - 400 K/uL [facility] RBC (Bld) [#/Vol] 3.9 10*6/uL Low [facility] WBC (Bld) [#/Vol] 12.1 10*3/uL High 4.5 - 11.5 K/uL [facility] Basophils (Bld) [#/Vol] 0.05 10*3/uL Normal 0.00-0.20 The [facility] Comment on above: Performed By: #### C BCDSAT ####[facility] PATHOLOGY [id number] [place] [address], Basophils/100 WBC (Bld) 0.4 % Normal <=1.9 The [facility] Comment on above: Performed By: #### C BCDSAT ####[facility] PATHOLOGY [id number] [place] [address], Eosinophils (Bld) [#/Vol] 0.00 10*3/uL Normal 0.00-0.70 The [facility] Comment on above: Performed By: #### C BCDSAT ####[facility] PATHOLOGY [id number] [place] [address], Eosinophils/100 WBC (Bld) 0.0 % Low 0.1-4.0 The [facility] Comment on above: Performed By: #### C BCDSAT ####[facility] PATHOLOGY [id number] [place] [address], Erythrocyte distribution width (RBC) [Ratio] 16.4 % High 11.5-14.5 The [facility] Comment on above: Performed By: #### C BCDSAT ####[facility] PATHOLOGY [id number] [place] [address], Hematocrit (Bld) [Volume fraction] 40.1 % Low 41.0-53.0 The [facility] Comment on above: Performed By: #### C BCDSAT ####S PATHOLOGY [id number] [place] [address], Hemoglobin (Bld) [Mass/Vol] 13.3 g/dL Low 13.9-16.3 The [facility] Comment on above: Performed By: #### C BCDSAT ####[facility] PATHOLOGY [id number] [place] [address], Lymphocytes (Bld) [#/Vol] 0.99 10*3/uL Low 1.00-4.80 [facility] Comment on above: Performed By: #### Kelly HERNANDEZAT ####[facility] PATHOLOGY [id number] [place], Lymphocytes/100 WBC (Bld) 8.2 % Low 24.0-44.0 [facility] Comment on above: Performed By: #### Kelly HERNANDEZAT ####[facility] PATHOLOGY [id number] [place], MCH (RBC) [Entitic mass] 34.2 pg High 26.0-34.0 [facility] Comment on above: Performed By: #### Kelly HERNANDEZAT ####[facility] PATHOLOGY [id number] [place] [address], MCHC (RBC) [Mass/Vol] 33.2 g/dL Normal 32.0-35.9 [facility] Comment on above: Performed By: #### Kelly HERNANDEZAT ####[facility] PATHOLOGY [id number] [place] [address], MCV (RBC) [Entitic vol] 103 fL High 80-100 [facility] Comment on above: Performed By: #### Kelly HERNANDEZAT ####[facility] PATHOLOGY [id number] [place], Monocytes (Bld) [#/Vol] 0.59 10*3/uL Normal 0.20-1.00 [facility] Comment on above: Performed By: #### Kelly HERNANDEZAT ####[facility] PATHOLOGY [id number] [place] [address], Monocytes/100 WBC (Bld) 4.9 % Normal 2.0-11.0 [facility] Comment on above: Performed By: #### Kelly HERNANDEZAT ####[facility] PATHOLOGY [id number] [place], Neutrophils (Bld) [#/Vol] 10.45 10*3/uL High 1.50-8.00 [facility] Comment on above: Performed By: #### Kelly HERNANDEZAT ####S PATHOLOGY [id number] [place], Neutrophils/100 WBC (Bld) 86.6 % High 31.0-76.0 [facility] Comment on above: Performed By: #### C BCDSAT ####S PATHOLOGY [id number] [place], Platelet mean volume (Bld) [Entitic vol] 9.6 fL Normal 7.5-11.2 [facility] Comment on above: Performed By: #### C BCDSAT ####[facility] [id number] [place], Platelets (Bld) [#/Vol] 135 10*3/uL Low 150-400 [facility] Comment on above: Performed By: #### C BCDSAT ####S PATHOLOGY [id number] [place], RBC (Bld) [#/Vol] 3.90 10*6/uL Low 4.50-5.90 [facility] Comment on above: Performed By: #### C BCDSAT ####S PATHOLOGY [id number] [place], WBC (Bld) [#/Vol] 12.1 10*3/uL High 4.5-11.5 [facility] Comment on above: Performed By: #### C BCDSAT ####S PATHOLOGY [id number] [place], Disruptive Behavior Progress Noteon 10-18-2024 Manager Women Authentication Interface Message Text Normal [facility] ED Noteson 10-18-2024 Manager Women Authentication Interface Message Text notified of critical LACTATE value of 4.7. Hard copy of results given to . Normal [facility] Manager Women Authentication Interface Message Text Dr. RESENDEZ notified of critical LACTATE value of 5.3. Hard copy of results given to Dr. RESENDEZ. Normal [facility] EKG 12 LEAD - PERFORMon 09-29 Diagnosis ? Suspect arm lead reversal, interpretation assumes no reversal Sinus tachycardia Right bundle branch block Possible Lateral infarct (cited on or before 17-OCT-2024) T wave abnormality, consider inferior ischemia Abnormal ECG When compared with ECG of 13-OCT-2024 16:19, Right bundle branch block has replaced Nonspecific intraventricular block Questionable change in initial forces of Lateral leads Confirmed by MAYELA CRAIG ([id number]) on 10/18/2024 5:09:49 PM [facility] by EKG 117 BPM Metr [facility] P wave axis 80 degrees [facility] P-R Interval 138 ms [facility] Q-T interval 368 ms [facility] Q-T interval corrected 513 ms [facility] QRS axis 153 degrees [facility] QRS duration 144 ms [facility] T wave axis -18 degrees [facility] H AND Timo 10-18-2024 Manager Women Authentication Interface Message Text Normal [facility] HEPATIC FUNCTION PANELon Albumin [Mass/Vol] 3.3 g/dL Low 3.5 - 5.7 g/dL [facility] ALP [Catalytic activity/Vol] 273 U/L High [facility] ALT [Catalytic activity/Vol] 25 U/L [facility] AST [Catalytic activity/Vol] 31 U/L [facility] Bilirubin [Mass/Vol] 8.8 mg/dL High 0.3 - 1 .0 mg/dL [facility] Bilirubin.direct [Mass/Vol] 4.95 mg/dL High 0.03 - 0.18 mg/dL [facility] Protein [Mass/Vol] 6.2 g/dL 6.0 - 8.3 g/dL [facility] Albumin [Mass/Vol] 3.3 g/dL Low 3.5-5.7 [facility] Comment on above: Performed By: #### H MG DOSHI PROCAL, CH8 ####[facility] [id number] [place], ALK 273 IU/L High 34-104 [facility] Comment on above: Performed By: #### H MG DOSHI PROCAL, CH8 ####[facility] [id number] [place], ALT [Catalytic activity/Vol] 25 U/L Normal 7-52 [facility] Comment on above: Performed By: #### H MG TICO, PROCAL, CH8 ####[facility] PATHOLOGY [id number] [place], AST [Catalytic activity/Vol] 31 U/L Normal 13-39 The [facility] Comment on above: Performed By: #### H EPATIC, MG, PROCAL, CH8 ####[facility] PATHOLOGY [id number] [place], Bilirubin [Mass/Vol] 8.8 mg/dL High 0.3-1.0 The [facility] Comment on above: Performed By: #### H EPATIC, MG, PROCAL, CH8 ####[facility] PATHOLOGY [id number] [place], Bilirubin.direct [Mass/Vol] 4.95 mg/dL High 0.03-0.18 The [facility] Comment on above: Performed By: #### H EPATIC, MG, PROCAL, CH8 ####[facility] PATHOLOGY [id number] [place], Protein [Mass/Vol] 6.2 g/dL Normal 6.0-8.3 The [facility] Comment on above: Performed By: #### H EPATIC, MG, PROCAL, CH8 ####[facility] PATHOLOGY [id number] [place], HIGH SENSITIVITY TROPONIN Io n 10-18-2024 Troponin I.cardiac DL <= 0.01 ng/mL [Mass/Vol] 49 ng/L High NINF - 15 ng/L [facility] LACTATE WITH REPEAT EDOrdere d By: Jose Raul Thakkar on 10-18-2024 Interpretation and review of laboratory results Abnormal [facility] Lactate [Moles/Vol] 5.3 mmol/L Critically high 0.5 - 1.6 mmol/L [facility] This test was developed, and its performance characteristics determined by the Department of Pathology of The [facility]. It has not been cleared or approved by the FDA. This test is used for clinical purposes only. [facility] LACTATE WITH REPEAT EDon CR LACT 5.3 mmol/L Critically high 0.5-1.6 The [facility] Comment on above: Order Comment: This test was developed, and its performance characteristics determined by the Department of Pathology of The [facility]. It has not been cleared or approved by the FDA. This test is used for clinical purposes only. Performed By: #### L ACTREPEAT ####[facility] [id number] [place], LACTIC ACIDOrdered By: Fely Read on 10-18-2024 Interpretation and review of laboratory results Abnormal [facility] Lactate [Moles/Vol] 4.8 mmol/L Critically high 0.5 - 1.6 mmol/L [facility] This test was developed, and its performance characteristics determined by the Department of Pathology of The [facility]. It has not been cleared or approved by the FDA. This test is used for clinical purposes only. [facility] LACTIC ACIDon 10-18-2024 CR LACT 4.8 mmol/L Critically high 0.5-1.6 The [facility] Comment on above: Order Comment: This test was developed, and its performance characteristics determined by the Department of Pathology of The [facility]. It has not been cleared or approved by the FDA. This test is used for clinical purposes only. Performed By: #### L ACT ####[facility] PATHOLOGY [id number] [place], Interpretation and review of laboratory results Abnormal [facility] Lactate [Moles/Vol] 4.7 mmol/L Critically high 0.5 - 1.6 mmol/L [facility] This test was developed, and its performance characteristics determined by the Department of Pathology of The [facility]. It has not been cleared or approved by the FDA. This test is used for clinical purposes only. [facility] CR LACT 4.7 mmol/L Critically high 0.5-1.6 The [facility] Comment on above: Order Comment: This test was developed, and its performance characteristics determined by the Department of Pathology of The [facility]. It has not been cleared or approved by the FDA. This test is used for clinical purposes only. Performed By: #### L ACT ####[facility] [id number] [place], MAGNESIUMon 10-18-2024 Magnesium [Mass/Vol] 2.9 mg/dL High 1.9 - 2 .7 mg/dL [facility] Magnesium [Mass/Vol] 2.9 mg/dL High 1.9-2.7 [facility] Comment on above: Performed By: #### H MG TICO, PROCAL, CH8 ####[facility] PATHOLOGY [id number] [place], No Panel Informationon 10-18 Interpretation and review of laboratory results Abnormal [facility] [facility] PROCALCITONINon 10-18-2024 Interpretation and review of laboratory results Abnormal [facility] Procalcitonin IA [Mass/Vol] 16.82 ng/mL High NINF - 0.50 ng/mL [facility] [place] Comment on above: Procalcitonin Concen trations < 0.50 ng/mL = Low Risk of severe sepsis and/or septic shock Procalcitonin Concentrations > 2.00 ng/mL = High Risk of severe sepsis and/or septic shock Concentrations under 0.50 ng/mL do not exclude local infections or systemic infections in their initial stages (e.g. under six hours from onset of illness). Procalcitonin concentrations between 0.50 and 2.00 ng/mL should be interpreted with consideration of the patient's history. In this range, it is recommended to retest Procalcitonin within 6 to 24 hours. [facility] PROCALCITONIN 16.82 ng/mL High <0.50 [facility] [place] Comment on above: Result Comment: Proc alcitonin Concentrations < 0.50 ng/mL = Low Risk of severe sepsis and/or septic shockProcalcitonin Concentrations > 2.00 ng/mL = High Risk of severe sepsis and/or septic shockConcentrations under 0.50 ng/mL do not exclude local infections or systemic infections in their initial stages (e.g. under six hours from onset of illness). Procalcitonin concentrations between 0.50 and 2.00 ng/mL should be interpreted with consideration of the patient's history. In this range, it is recommended to retest Procalcitonin within 6 to 24 hours. Performed By: #### H TICO MG, PROCAL, CH8 ####[facility] PATHOLOGY [id number] [place], [place], Progress Noteson 10-18-2024 Manager Women Authentication Interface Message Text Normal [facility] Manager Women Authentication Interface Message Text Normal [facility] Manager Women Authentication Interface Message Text Dr./LIP Myers notified of critical lactic acid value of 4.8. Dr./LIP Myers read back critical results. New orders received. Normal [facility] Manager Women Authentication Interface Message Text Normal [facility] RESPIRATORY CULTURE, MISCOrd ered By: Lore Conklin on 10-18-2024 Bacteria identified Respiratory culture Nom (Unsp spec) Squamous Epithelial Cells present. Recommend submission of another specimen. [facility] [place] Interpretation and review of laboratory results Normal [facility] RESPIRATORY CULTURE, MISCon 10-18-2024 RESPIRATORY CULTURE, MISC C RESP: Squamous Epithelial Cells present. Recommend submission of another specimen. Normal [facility] Comment on above: Performed By: #### C RESP ####[facility] [id number] [place] [address] Troponin I.cardiac DL <= 0.0 1 ng/mL [Mass/Vol]on 10-18-2024 Interpretation and review of laboratory results Abnormal [facility] Elevated troponin ca n result from acute myocardial infarction (coronary etiology) or myocardial injury (non-coronary etiology) - always consider both. Interval test times for ruling out acute coronary syndrome (ACS) are 2 hours. All results are reported in whole numbers representing ng/L. Results obtained by different labs or methods are not comparable. For ruling out ACS, lab values are always used in conjunction with clinical risk assessment (e.g., HEART score*). Interpreting initial value in ruling out ACS Less than 5 ng/L - below lower limit of quantification - essentially rules out ACS if chest pain began more than 3 hours prior to test and assessed risk is low. 5 - 49 ng/L - indeterminate - consider repeat value in 2 hours depending on risk assessment. 50 ng/L or greater - concern for ACS or myocardial injury. Interpreting delta values in ruling out ACS. Always compare to initial value obtained: Absolute change (rise or fall) of less than 5 ng/L - essentially rules out ACS if assessed clinical risk is low. Absolute change (rise or fall) of 5 - 19 ng/L - indeterminate - consider another repeat value in 2 hours depending on assessed clinical risk. Absolute change (rise or fall) of 20 ng/L or greater - concern for ACS or myocardial injury. Any absolute value of 50 ng/L or greater - concern for ACS or myocardial injury. *When using hsTnI to calculate the HEART score, use the 99% Upper Reference Limit of 15 ng/L as the normal limit (i.e. <=15 ng/L = 0 points, 16-45 ng/L = 1 point, >45 ng/L = 2 points). Disposition Intermediate hsTnI values DO NOT mandate admission to a cardiology or telemetry unit. They need to be interpreted within the clinical context using provider judgement. [facility] [employer] BASIC METABOLIC PANELon 04-2 0-2024 Anion gap [Moles/Vol] 26 mmol/L High 10-20 [facility] Comment on above: Performed By: #### Nichole Morales, CH8 ####[facility] PATHOLOGY [id number] [place], [place], Calcium [Mass/Vol] 8.7 mg/dL Normal 8.6-10.3 [facility] Comment on above: Performed By: #### Nichole Morales, CH8 ####[facility] PATHOLOGY [id number] [place], [place], Chloride [Moles/Vol] 101 mmol/L Normal 98-107 [facility] Comment on above: Performed By: #### Nichole Morales, CH8 ####[facility] PATHOLOGY [id number] [place], CO2 [Moles/Vol] 15 mmol/L Low 21-31 [facility] Comment on above: Performed By: #### Nichole Morales, CH8 ####S PATHOLOGY [id number] [place], Creatinine [Mass/Vol] 2.80 mg/dL High 0.70-1.30 [facility] Comment on above: Performed By: #### Nichole Morales, CH8 ####[facility] PATHOLOGY [id number] [place], ESTIMATED GFR (CKD-EPI) 27 mL/min/1.73sqm Low >=60 [facility] Comment on above: Result Comment: 2020 CKD EPI Equation using Creatinine without RaceComment: Estimated glomerular filtration rate (eGFR) is calculated without a race coefficient. Values should be interpreted in the context of the patient's full clinical presentation.Reference:1. Berny C, Melonie M, Alecia BABCOCK, et al.. A Unifying Approach for GFR Estimation: Recommendations of the NKF-ASN Task Force on Reassessing the Inclusion of Race in Diagnosing Kidney Disease. [place] Journal of Kidney Diseases 2021;79(2):268-88.e1.2. N Engl J Med 1 Vol. 385 Issue 19 Pages 4041-9811 Performed By: #### Nichole Morales, CH8 ####S PATHOLOGY [id number] [place], Glucose [Mass/Vol] 106 mg/dL Normal 74-109 [facility] Comment on above: Performed By: #### Nichole Morales, CH8 ####S PATHOLOGY [id number] [place], Potassium [Moles/Vol] 4.7 mmol/L Normal 3.5-5.0 [facility] Comment on above: Performed By: #### Nichole Morales, CH8 ####S PATHOLOGY [id number] [place], Sodium [Moles/Vol] 137 mmol/L Normal 136-145 [facility] Comment on above: Performed By: #### Nichole Morales, CH8 ####S PATHOLOGY [id number] [place], Urea nitrogen [Mass/Vol] 84 mg/dL High 7-25 [facility] Comment on above: Performed By: #### Nichole Morales, CH8 ####S PATHOLOGY [id number] [place], Basic metabolic 2000 panelon 10-17-2024 Anion gap [Moles/Vol] 26 mmol/L High 10 - 20 [facility] Calcium [Mass/Vol] 8.7 mg/dL 8.6 - 10. 3 mg/dL [facility] Chloride [Moles/Vol] 101 mmol/L 98 - 10 7 mmol/L [facility] CO2 [Moles/Vol] 15 mmol/L Low 21 - 31 mmol/L [facility] Creatinine [Mass/Vol] 2.8 mg/dL High 0.70 - 1.30 mg/dL [facility] GFR/1.73 sq M.predicted CKD-EPI (S/P/Bld) [Vol rate/Area] 27 Low - PINF [facility] Comment on above: 2020 CKD EPI Equatio n using Creatinine without Race Comment: Estimated glomerular filtration rate (eGFR) is calculated without a race coefficient. Values should be interpreted in the context of the patient's full clinical presentation. Reference: 1. Berny C, Melonie M, Aleica BABCOCK, et al.. A Unifying Approach for GFR Estimation: Recommendations of the NKF-ASN Task Force on Reassessing the Inclusion of Race in Diagnosing Kidney Disease. [place] Journal of Kidney Diseases 2021;79(2):268-88.e1. 2. N Engl J Med 2020 Vol. 385 Issue 19 Pages 2676-1326 Glucose [Mass/Vol] 106 mg/dL 74 - 109 mg/dL [facility] Potassium [Moles/Vol] 4.7 mmol/L 3.5 - 5.0 mmol/L [facility] Sodium [Moles/Vol] 137 mmol/L 136 - 145 mmol/L [facility] Urea nitrogen [Mass/Vol] 84 mg/dL High 7 - 25 mg/dL [facility] CBC WITH DIFFERENTIALon 09-29 Basophils (Bld) [#/Vol] 0.03 10*3/uL 0.00 - 0.20 K/uL [facility] Basophils/100 WBC (Bld) 0.3 % NINF - 1.9 % [facility] Eosinophils (Bld) [#/Vol] 0 10*3/uL 0.00 - 0.70 K/uL [facility] Eosinophils/100 WBC (Bld) 0 % Low 0.1 - 4.0 % [facility] Erythrocyte distribution width (RBC) [Ratio] 16.3 % High 11.5 - 14.5 % [facility] Hematocrit (Bld) [Volume fraction] 40.2 % Low 41.0 - 53.0 % [facility] Hemoglobin (Bld) [Mass/Vol] 13.6 g/dL Low 13.9 - 16.3 g/dL [facility] Interpretation and review of laboratory results Abnormal [facility] Lymphocytes (Bld) [#/Vol] 1.01 10*3/uL 1.00 - 4.80 K/uL [facility] Lymphocytes/100 WBC (Bld) 7.8 % Low 24.0 - 44.0 % [facility] MCH (RBC) [Entitic mass] 34.9 pg High 26.0 - 34.0 pg [facility] MCHC (RBC) [Mass/Vol] 33.8 g/dL 32.0 - 35.9 g/dL [facility] MCV (RBC) [Entitic vol] 104 fL High 80 - 100 fL [facility] Monocyte distribution width Auto (Bld) [Entitic vol] 20 NINF - 20 [facility] Monocytes (Bld) [#/Vol] 0.82 10*3/uL 0.20 - 1.00 K/uL [facility] Monocytes/100 WBC (Bld) 6.4 % 2.0 - 11.0 % [facility] Neutrophils (Bld) [#/Vol] 10.98 10*3/uL High 1.50 - 8.00 K/uL [facility] Neutrophils/100 WBC (Bld) 85.5 % High 31.0 - 76.0 % [facility] Platelet mean volume (Bld) [Entitic vol] 9.3 fL 7.5 - 11.2 fL [facility] Platelets (Bld) [#/Vol] 153 10*3/uL 150 - 400 K/uL [facility] RBC (Bld) [#/Vol] 3.88 10*6/uL Low [facility] WBC (Bld) [#/Vol] 12.8 10*3/uL High 4.5 - 11.5 K/uL [facility] Basophils (Bld) [#/Vol] 0.03 10*3/uL Normal 0.00-0.20 The [facility] System Comment on above: Performed By: #### C BCDSAT ####S PATHOLOGY [id number] [place], Basophils/100 WBC (Bld) 0.3 % Normal <=1.9 The [facility] System Comment on above: Performed By: #### C BCDSAT ####S PATHOLOGY [id number] [place], Eosinophils (Bld) [#/Vol] 0.00 10*3/uL Normal 0.00-0.70 [facility] Comment on above: Performed By: #### C GARRETTDSAT ####[facility] PATHOLOGY [id number] [place], Eosinophils/100 WBC (Bld) 0.0 % Low 0.1-4.0 [facility] Comment on above: Performed By: #### C MARYAT ####[facility] PATHOLOGY [id number] [place] [address], Erythrocyte distribution width (RBC) [Ratio] 16.3 % High 11.5-14.5 [facility] [place] Comment on above: Performed By: #### C MARYAT ####[facility] PATHOLOGY [id number] [place] [address], Hematocrit (Bld) [Volume fraction] 40.2 % Low 41.0-53.0 [facility] Comment on above: Performed By: #### C MARYAT ####[facility] PATHOLOGY [id number] [place] [address], Hemoglobin (Bld) [Mass/Vol] 13.6 g/dL Low 13.9-16.3 [facility] [place] Comment on above: Performed By: #### Kelly HERNANDEZAT ####[facility] PATHOLOGY [id number] [place] [address], Lymphocytes (Bld) [#/Vol] 1.01 10*3/uL Normal 1.00-4.80 [facility] [place] Comment on above: Performed By: #### C MARYAT ####[facility] PATHOLOGY [id number] [place] [address], Lymphocytes/100 WBC (Bld) 7.8 % Low 24.0-44.0 The [facility] System Comment on above: Performed By: #### C MARYAT ####[facility] PATHOLOGY [id number] [place] [address], MCH (RBC) [Entitic mass] 34.9 pg High 26.0-34.0 [facility] [place] Comment on above: Performed By: #### C MARYAT ####[facility] PATHOLOGY [id number] [place] [address], MCHC (RBC) [Mass/Vol] 33.8 g/dL Normal 32.0-35.9 The [facility] System Comment on above: Performed By: #### Kelly HERNANDEZAT ####[facility] PATHOLOGY [id number] [place], MCV (RBC) [Entitic vol] 104 fL High 80-100 The [facility] System Comment on above: Performed By: #### C MARYAT ####[facility] PATHOLOGY [id number] [place] [address], MONOCYTE DISTRIBUTION WIDTH 20 Normal <=20 The [facility] System Comment on above: Performed By: #### Kelly HERNANDEZAT ####[facility] PATHOLOGY [id number] [place], Monocytes (Bld) [#/Vol] 0.82 10*3/uL Normal 0.20-1.00 The [facility] System Comment on above: Performed By: #### Kelly HERNANDEZAT ####[facility] PATHOLOGY [id number] [place] [address], Monocytes/100 WBC (Bld) 6.4 % Normal 2.0-11.0 The [facility] System Comment on above: Performed By: #### Kelly HERNANDEZAT ####[facility] PATHOLOGY [id number] [place] [address], Neutrophils (Bld) [#/Vol] 10.98 10*3/uL High 1.50-8.00 The [facility] System Comment on above: Performed By: #### Kelly HERNANDEZAT ####[facility] PATHOLOGY [id number] [place] [address], Neutrophils/100 WBC (Bld) 85.5 % High 31.0-76.0 The [facility] System Comment on above: Performed By: #### Kelly HERNANDEZAT ####[facility] PATHOLOG[facility] [id number] [place], Platelet mean volume (Bld) [Entitic vol] 9.3 fL Normal 7.5-11.2 The [facility] System Comment on above: Performed By: #### Kelly HERNANDEZAT ####[facility] PATHOLOG[facility] [id number] [place], Platelets (Bld) [#/Vol] 153 10*3/uL Normal 150-400 [facility] [place] Comment on above: Performed By: #### C BCDSAT ####[facility] PATHOLOG[facility] [id number] [place], RBC (Bld) [#/Vol] 3.88 10*6/uL Low 4.50-5.90 The [facility] System Comment on above: Performed By: #### C BCDSAT ####[facility] PATH[facility] [id number] [place], WBC (Bld) [#/Vol] 12.8 10*3/uL High 4.5-11.5 [facility] [place] Comment on above: Performed By: #### C BCDSAT ####[facility] PATHOLOG[facility] [id number] [place], [place], ED Noteson 10-17-2024 Manager Women Authentication Interface Message Text Delay in antibiotics d/t no IV access Normal [facility] ED Provider Noteson 10-18-19 Manager Women Authentication Interface Message Text Normal The [facility] System Manager Women Authentication Interface Message Text Normal [facility] HIGH SENSITIVITY TROPONIN Io n 10-17-2024 HS TROPONIN I 49 ng/L High <=15 [facility] [place] Comment on above: Order Comment: [place] monalisa troponin can result from acute myocardial infarction (coronary etiology) or myocardial injury (non-coronary etiology) - always consider both.Interval test times for ruling out acute coronary syndrome (ACS) are 2 hours.All results are reported in whole numbers representing ng/L. Results obtained by different labs or methods are not comparable.For ruling out ACS, lab values are always used in conjunction with clinical risk assessment (e.g., HEART score*).Interpreting initial value in ruling out ACSLess than 5 ng/L - below lower limit of quantification - essentially rules out ACS if chest pain began more than 3 hours prior to test and assessed risk is low.5 - 49 ng/L - indeterminate - consider repeat value in 2 hours depending on risk assessment.50 ng/L or greater - concern for ACS or myocardial injury.Interpreting delta values in ruling out ACS.Always compare to initial value obtained:Absolute change (rise or fall) of less than 5 ng/L - essentially rules out ACS if assessed clinical risk is low.Absolute change (rise or fall) of 5 - 19 ng/L - indeterminate - consider another repeat value in 2 hours depending on assessed clinical risk.Absolute change (rise or fall) of 20 ng/L or greater - concern for ACS or myocardial injury.Any absolute value of 50 ng/L or greater - concern for ACS or myocardial injury.*When using hsTnI to calculate the HEART score, use the 99% Upper Reference Limit of 15 ng/L as the normal limit (i.e. <=15 ng/L = 0 points, 16-45 ng/L = 1 point, >45 ng/L = 2 points).DispositionIntermediate hsTnI values DO NOT mandate admission to a cardiology or telemetry unit. They need to be interpreted within the clinical context using provider judgement. Performed By: #### H STRP ####[facility] [id number] [place], [id number] Troponin I.cardiac DL <= 0.01 ng/mL [Mass/Vol] 40 ng/L High NINF - 15 ng/L [facility] HS TROPONIN I 40 ng/L High <=15 [facility] Comment on above: Order Comment: [place] monalisa troponin can result from acute myocardial infarction (coronary etiology) or myocardial injury (non-coronary etiology) - always consider both.Interval test times for ruling out acute coronary syndrome (ACS) are 2 hours.All results are reported in whole numbers representing ng/L. Results obtained by different labs or methods are not comparable.For ruling out ACS, lab values are always used in conjunction with clinical risk assessment (e.g., HEART score*).Interpreting initial value in ruling out ACSLess than 5 ng/L - below lower limit of quantification - essentially rules out ACS if chest pain began more than 3 hours prior to test and assessed risk is low.5 - 49 ng/L - indeterminate - consider repeat value in 2 hours depending on risk assessment.50 ng/L or greater - concern for ACS or myocardial injury.Interpreting delta values in ruling out ACS.Always compare to initial value obtained:Absolute change (rise or fall) of less than 5 ng/L - essentially rules out ACS if assessed clinical risk is low.Absolute change (rise or fall) of 5 - 19 ng/L - indeterminate - consider another repeat value in 2 hours depending on assessed clinical risk.Absolute change (rise or fall) of 20 ng/L or greater - concern for ACS or myocardial injury.Any absolute value of 50 ng/L or greater - concern for ACS or myocardial injury.*When using hsTnI to calculate the HEART score, use the 99% Upper Reference Limit of 15 ng/L as the normal limit (i.e. <=15 ng/L = 0 points, 16-45 ng/L = 1 point, >45 ng/L = 2 points).DispositionIntermediate hsTnI values DO NOT mandate admission to a cardiology or telemetry unit. They need to be interpreted within the clinical context using provider judgement. Performed By: #### H STRP ####S PATHOLOGY [id number] [place] [address], MAGNESIUMon 10-17-2024 Magnesium [Mass/Vol] 2.9 mg/dL High 1.9 - 2 .7 mg/dL [facility] Magnesium [Mass/Vol] 2.9 mg/dL High 1.9-2.7 The [employer] [facility] Comment on above: Performed By: #### M G, CH8 ####[facility] PATHOLOG[facility] [id number] [place], [place], NT PRO-BNPon 10-17-2024 Interpretation and review of laboratory results Abnormal [facility] Natriuretic peptide.B prohormone N-Terminal IA [Mass/Vol] 67619 pg/mL High NINF - 450 pg/mL [facility] Result: <300 pg/mL (All ages). Interpretation: Negative. Heart failure unlikely. Result: 300-450 pg/mL (<50 years), 300-900 pg/mL (50-75 years), 300-1800 pg/mL (>75 years). Interpretation: Indeterminate. Consider other reasons for NT Pro-BNP elevation. Result: >450 pg/mL (<50 years), >900 pg/mL (50-75 years), >1800 pg/mL (>75 years). Interpretation: Positive. Heart failure likely. [facility] Natriuretic peptide B (Bld) [Mass/Vol] 70906 pg/mL High <=450 The [employer] [facility] Comment on above: Order Comment: Resul t: <300 pg/mL (All ages).Interpretation: Negative. Heart failure unlikely.Result: 300-450 pg/mL (<50 years), 300-900 pg/mL (50-75 years), 300-1800 pg/mL (>75 years).Interpretation: Indeterminate. Consider other reasons for NT Pro-BNP elevation.Result: >450 pg/mL (<50 years), >900 pg/mL (50-75 years), >1800 pg/mL (>75 years).Interpretation: Positive. Heart failure likely. Performed By: #### N T-PROBNP ####[facility] PATHOLOGY [id number] [place] [address], No Panel Informationon 10-17 Interpretation and review of laboratory results Abnormal [facility] PROTHROMBIN TIME AND INRon 0 10-17-2024 INR Coag (PPP) [Relative time] 2.14 {INR} High 0.90 - 1.10 [facility] Interpretation and review of laboratory results Abnormal [facility] PT Coag (PPP) [Time] 24 s High [facility] INR Coag (PPP) [Relative time] 2.14 {INR} High 0.90-1.10 [facility] Comment on above: Performed By: #### P T ####S PATHOLOGY [id number] [place] [address], PT Coag (PPP) [Time] 24.0 s High 9.7-12.9 [facility] Comment on above: Performed By: #### P T ####S PATHOLOGY [id number] [place] [address], Troponin I.cardiac DL <= 0.0 1 ng/mL [Mass/Vol]on 10-17-2024 Interpretation and review of laboratory results Abnormal [facility] Elevated troponin ca n result from acute myocardial infarction (coronary etiology) or myocardial injury (non-coronary etiology) - always consider both. Interval test times for ruling out acute coronary syndrome (ACS) are 2 hours. All results are reported in whole numbers representing ng/L. Results obtained by different labs or methods are not comparable. For ruling out ACS, lab values are always used in conjunction with clinical risk assessment (e.g., HEART score*). Interpreting initial value in ruling out ACS Less than 5 ng/L - below lower limit of quantification - essentially rules out ACS if chest pain began more than 3 hours prior to test and assessed risk is low. 5 - 49 ng/L - indeterminate - consider repeat value in 2 hours depending on risk assessment. 50 ng/L or greater - concern for ACS or myocardial injury. Interpreting delta values in ruling out ACS. Always compare to initial value obtained: Absolute change (rise or fall) of less than 5 ng/L - essentially rules out ACS if assessed clinical risk is low. Absolute change (rise or fall) of 5 - 19 ng/L - indeterminate - consider another repeat value in 2 hours depending on assessed clinical risk. Absolute change (rise or fall) of 20 ng/L or greater - concern for ACS or myocardial injury. Any absolute value of 50 ng/L or greater - concern for ACS or myocardial injury. *When using hsTnI to calculate the HEART score, use the 99% Upper Reference Limit of 15 ng/L as the normal limit (i.e. <=15 ng/L = 0 points, 16-45 ng/L = 1 point, >45 ng/L = 2 points). Disposition Intermediate hsTnI values DO NOT mandate admission to a cardiology or telemetry unit. They need to be interpreted within the clinical context using provider judgement. [employer] XR CHEST AP OR PA 1 VIEWon 0 10-17-2024 XR CHEST AP OR PA 1 VIEW Normal [facility] XR Chest Single viewon 10-17 EXAMINATION: XR CHES T AP OR PA 1 VIEW 10/17/2024 09:00 PM CLINICAL HISTORY: Dyspnea at rest ASSOCIATED DIAGNOSIS: Dyspnea at rest ORDERING PROVIDER: VIC SANDHU TECHNOLOGISTS NOTE: COMPARISON: Chest radiograph dated October 13, 2024 FINDINGS: Lines, tubes, and devices: None. Lungs and pleura: Increased opacities are seen at the right lung base with interval worsening. There is no large pleural effusion or pneumothorax. Cardiomediastinal silhouette: The cardiomediastinal silhouette is prominent in size and likely exaggerated by AP technique. Musculoskeletal: Unremarkable. IMPRESSION: Interval worsening of right lower lobe pneumonia. Short-term follow-up is recommended to document resolution. MACRO: None RADIOLOGY Francisca Coronado MD - 10/17/2024 EXAMINATION: XR CHEST AP OR PA 1 VIEW 10/17/2024 09:00 PM CLINICAL HISTORY: Dyspnea at rest ASSOCIATED DIAGNOSIS: Dyspnea at rest ORDERING PROVIDER: VIC SANDHU TECHNOLOGISTS NOTE: COMPARISON: Chest radiograph dated October 13, 2024 FINDINGS: Lines, tubes, and devices: None. Lungs and pleura: Increased opacities are seen at the right lung base with interval worsening. There is no large pleural effusion or pneumothorax. Cardiomediastinal silhouette: The cardiomediastinal silhouette is prominent in size and likely exaggerated by AP technique. Musculoskeletal: Unremarkable. IMPRESSION: Interval worsening of right lower lobe pneumonia. Short-term follow-up is recommended to document resolution. MACRO: None [facility] Radiology Study observation (narrative) [facility] XR Chest Single viewOrdered By: Francisca Coronado on 10-17-2024 [facility] Work Phone: COVID/INFLUENZAOrdered By: Jocelyne atricia Cables on 10-13-2024 FLUAV RNA DEENA+probe Ql (Nph) Not detected Not Detected [facility] Comment on above: This assay was perfo rmed using Joyce DEQUAN RTPCR technology. FLUBV RNA DEENA+probe Ql (Nph) Not detected Not Detected [facility] Comment on above: This assay was perfo rmed using Joyce [employer] RTPCR technology. Interpretation and review of laboratory results Normal [facility] SARS-CoV-2 (COVID-19) Ab IA Ql Not Detected results are indicative of the absence of SARS-CoV-2 in the specimen submitted for testing. False negative results are possible based on the timing and quality of specimen submitted for testing. [facility] SARS-CoV-2 (COVID-19) RNA DEENA+probe Ql (Unsp spec) Not detected Not Detected [facility] Comment on above: This assay was perfo rmed using Joyce DEQUAN RTPCR technology. [facility] COVID/INFLUENZAon 10-13-2024 INFLUENZA A Not detected Normal Not Detected The [facility] Comment on above: Order Comment: Not D etected results are indicative of the absence of SARS-CoV-2 in the specimen submitted for testing. False negative results are possible based on the timing and quality of specimen submitted for testing. Result Comment: This assay was performed using Joyce DEQUAN RTPCR technology. Performed By: #### F CLINT/COVID ####[facility] PATHOLOGY [id number] [place], [id number] INFLUENZA B Not detected Normal Not Detected [facility] Comment on above: Order Comment: Not D etected results are indicative of the absence of SARS-CoV-2 in the specimen submitted for testing. False negative results are possible based on the timing and quality of specimen submitted for testing. Result Comment: This assay was performed using Joyce DEQUAN RTPCR technology. Performed By: #### F CLINT/COVID ####[facility] [id number] [place], [id number] SARS-CoV-2 (COVID-19) RNA DEENA+probe Ql (Unsp spec) Not detected Normal Not Detected [facility] Comment on above: Order Comment: Not D etected results are indicative of the absence of SARS-CoV-2 in the specimen submitted for testing. False negative results are possible based on the timing and quality of specimen submitted for testing. Result Comment: This assay was performed using Joyce [employer]AN RTPCR technology. Performed By: #### F CLINT/COVID ####[facility] PATHOLOGY [id number] [place], [id number] ED Provider Noteson 10-14-19 Manager Women Authentication Interface Message Text Normal [facility] Telephone Encounteron 2024 Manager Women Authentication Interface Message Text Normal [facility] Manager Women Authentication Interface Message Text Caller transferred to nurse for sx of(buzzword or buzzword situation)was hosptalized for pneumonia and concerned about lingering cough. Normal [facility] XR CHEST PA+LAT 2 VIEWSon XR CHEST PA+LAT 2 VIEWS Normal [facility] XR Chest PA and Lateralon EXAMINATION: XR CHES T PA+LAT 2 VIEWS 10/13/2024 04:37 PM CLINICAL HISTORY: SOB ASSOCIATED DIAGNOSIS: SOB ORDERING PROVIDER: LUIS EDUARDO BERNAL TECHNOLOGISTS NOTE: sob COMPARISON: XR CHEST AP OR PA 1 VIEW 10/02/2024, 8:09 PM FINDINGS: Cardiomediastinal silhouette: Cardiomegaly, similar to prior exam Lungs/Pleura: Suspected improved but persistent right lower lobe consolidation. No pleural effusion or pneumothorax. Musculoskeletal: Degenerative spurring within the thoracic spine. IMPRESSION: Suspected improved but persistent right lower lobe consolidation. No pleural effusion. Stable cardiomegaly. MACRO: None RADIOLOGY Deena Villeda MD - 10/13/2024 EXAMINATION: XR CHEST PA+LAT 2 VIEWS 10/13/2024 04:37 PM CLINICAL HISTORY: SOB ASSOCIATED DIAGNOSIS: SOB ORDERING PROVIDER: LUIS EDUARDO BERNAL TECHNOLOGISTS NOTE: sob COMPARISON: XR CHEST AP OR PA 1 VIEW 10/02/2024, 8:09 PM FINDINGS: Cardiomediastinal silhouette: Cardiomegaly, similar to prior exam Lungs/Pleura: Suspected improved but persistent right lower lobe consolidation. No pleural effusion or pneumothorax. Musculoskeletal: Degenerative spurring within the thoracic spine. IMPRESSION: Suspected improved but persistent right lower lobe consolidation. No pleural effusion. Stable cardiomegaly. MACRO: [facility] XR Chest PA and LateralOrder ed By: Deena Villeda on 10-13-2024 [facility] Work Phone: Telephone Encounteron 2024 Manager Women Authentication Interface Message Text Normal [facility] BASIC METABOLIC PANELon Anion gap [Moles/Vol] 15 mmol/L Normal 10-20 [facility] Comment on above: Performed By: #### P HOS, CH8, MG ####[facility] [id number] [place], [place], Calcium [Mass/Vol] 8.2 mg/dL Low 8.6-10.3 [facility] Comment on above: Performed By: #### P HOS, CH8, MG ####[facility] [id number] [place], [place], Chloride [Moles/Vol] 96 mmol/L Low 98-107 [facility] Comment on above: Performed By: #### P HOS, CH8, MG ####[facility] [id number] [place], CO2 [Moles/Vol] 27 mmol/L Normal 21-31 [facility] Comment on above: Performed By: #### P HOS, CH8, MG ####[facility] [id number] [place], Creatinine [Mass/Vol] 1.98 mg/dL High 0.70-1.30 [facility] Comment on above: Performed By: #### P HOS, CH8, MG ####[facility] [id number] [place], ESTIMATED GFR (CKD-EPI) 41 mL/min/1.73sqm Low >=60 [facility] Comment on above: Result Comment: 2020 CKD EPI Equation using Creatinine without RaceComment: Estimated glomerular filtration rate (eGFR) is calculated without a race coefficient. Values should be interpreted in the context of the patient's full clinical presentation.Reference:1. Berny C, Melonie M, Alecia DC, et al.. A Unifying Approach for GFR Estimation: Recommendations of the NKF-ASN Task Force on Reassessing the Inclusion of Race in Diagnosing Kidney Disease. [place] Journal of Kidney Diseases 202;79(2):268-88.e1.2. N Engl J Med 2020 Vol. 385 Issue 19 Pages 8384-4518 Performed By: #### P HOS, CH8, MG ####[facility] [id number] [place], [place], Glucose [Mass/Vol] 105 mg/dL Normal 74-109 [facility] Comment on above: Performed By: #### P HOS, CH8, MG ####[facility] [id number] [place], Potassium [Moles/Vol] 4.3 mmol/L Normal 3.5-5.0 [facility] Comment on above: Performed By: #### P HOS CH8, MG ####[facility] [id number] [place], Sodium [Moles/Vol] 134 mmol/L Low 136-145 [facility] Comment on above: Performed By: #### P HOS, CH8, MG ####[facility] [id number] [place], Urea nitrogen [Mass/Vol] 52 mg/dL High 7-25 [facility] Comment on above: Performed By: #### P RASHID, CH8, ####[facility] [id number] [place], [place], Basic metabolic 2000 panelon 10-06-2024 Anion gap [Moles/Vol] 15 mmol/L 10 - 20 [facility] Calcium [Mass/Vol] 8.2 mg/dL Low 8.6 - 10. 3 mg/dL [facility] Chloride [Moles/Vol] 96 mmol/L Low 98 - 10 7 mmol/L [facility] CO2 [Moles/Vol] 27 mmol/L 21 - 31 mmol/L [facility] Creatinine [Mass/Vol] 1.98 mg/dL High 0.70 - 1.30 mg/dL [facility] GFR/1.73 sq M.predicted CKD-EPI (S/P/Bld) [Vol rate/Area] 41 Low - PINF [facility] Comment on above: 2020 CKD EPI Equatio n using Creatinine without Race Comment: Estimated glomerular filtration rate (eGFR) is calculated without a race coefficient. Values should be interpreted in the context of the patient's full clinical presentation. Reference: 1. Berny C, Melonie M, Alecia BABCOCK, et al.. A Unifying Approach for GFR Estimation: Recommendations of the NKF-ASN Task Force on Reassessing the Inclusion of Race in Diagnosing Kidney Disease. [place] Journal of Kidney Diseases 2021;79(2):268-88.e1. 2. N Engl J Med 2020 Vol. 385 Issue 19 Pages 3408-0582 Glucose [Mass/Vol] 105 mg/dL 74 - 109 mg/dL [facility] Interpretation and review of laboratory results Abnormal [facility] Potassium [Moles/Vol] 4.3 mmol/L 3.5 - 5.0 mmol/L [facility] Sodium [Moles/Vol] 134 mmol/L Low 136 - 145 mmol/L [facility] Urea nitrogen [Mass/Vol] 52 mg/dL High 7 - 25 mg/dL [facility] CBC WITH DIFFERENTIALon Basophils (Bld) [#/Vol] 0.03 10*3/uL 0.00 - 0.20 K/uL [facility] Basophils/100 WBC (Bld) 0.3 % NINF - 1.9 % [facility] Eosinophils (Bld) [#/Vol] 0.02 10*3/uL 0.00 - 0.70 K/uL [facility] Eosinophils/100 WBC (Bld) 0.2 % 0.1 - 4.0 % [facility] Erythrocyte distribution width (RBC) [Ratio] 15.1 % High 11.5 - 14.5 % [facility] Hematocrit (Bld) [Volume fraction] 40.8 % Low 41.0 - 53.0 % [facility] Hemoglobin (Bld) [Mass/Vol] 13.8 g/dL Low 13.9 - 16.3 g/dL [facility] Interpretation and review of laboratory results Abnormal [facility] Lymphocytes (Bld) [#/Vol] 2.34 10*3/uL 1.00 - 4.80 K/uL [facility] Lymphocytes/100 WBC (Bld) 28.5 % 24.0 - 44.0 % [facility] MCH (RBC) [Entitic mass] 34.6 pg High 26.0 - 34.0 pg [facility] MCHC (RBC) [Mass/Vol] 33.9 g/dL 32.0 - 35.9 g/dL [facility] MCV (RBC) [Entitic vol] 102 fL High 80 - 100 fL [facility] Monocytes (Bld) [#/Vol] 0.72 10*3/uL 0.20 - 1.00 K/uL [facility] Monocytes/100 WBC (Bld) 8.7 % 2.0 - 11.0 % [facility] Neutrophils (Bld) [#/Vol] 5.11 10*3/uL 1.50 - 8.00 K/uL [facility] Neutrophils/100 WBC (Bld) 62.3 % 31.0 - 76.0 % [facility] Platelet mean volume (Bld) [Entitic vol] 8.5 fL 7.5 - 11.2 fL [facility] Platelets (Bld) [#/Vol] 206 10*3/uL 150 - 400 K/uL [facility] RBC (Bld) [#/Vol] 4 10*6/uL Low [facility] WBC (Bld) [#/Vol] 8.2 10*3/uL 4.5 - 11.5 K/uL [facility] Basophils (Bld) [#/Vol] 0.03 10*3/uL Normal 0.00-0.20 [facility] Comment on above: Performed By: #### C BCDSAT ####[facility] PATHOLOGY [id number] [place], [place], Basophils/100 WBC (Bld) 0.3 % Normal <=1.9 [facility] Comment on above: Performed By: #### C BCDSAT ####[facility] PATHOLOGY [id number] [place] [address], Eosinophils (Bld) [#/Vol] 0.02 10*3/uL Normal 0.00-0.70 [facility] [place] Comment on above: Performed By: #### C BCDSAT ####[facility] PATHOLOGY [id number] [place] [address], Eosinophils/100 WBC (Bld) 0.2 % Normal 0.1-4.0 [facility] [place] Comment on above: Performed By: #### C BCDSAT ####[facility] PATHOLOG[facility] [id number] [place], Erythrocyte distribution width (RBC) [Ratio] 15.1 % High 11.5-14.5 [facility] [place] Comment on above: Performed By: #### C BCDSAT ####[facility] PATHOLOGY [id number] [place], Hematocrit (Bld) [Volume fraction] 40.8 % Low 41.0-53.0 [facility] Comment on above: Performed By: #### C BCDSAT ####[facility] PATHOLOGY [id number] [place], Hemoglobin (Bld) [Mass/Vol] 13.8 g/dL Low 13.9-16.3 [facility] [place] Comment on above: Performed By: #### C BCDSAT ####[facility] PATHOLOG[facility] [id number] [place], Lymphocytes (Bld) [#/Vol] 2.34 10*3/uL Normal 1.00-4.80 The [facility] Comment on above: Performed By: #### C BCDSAT ####[facility] PATHOLOGY [id number] [place], Lymphocytes/100 WBC (Bld) 28.5 % Normal 24.0-44.0 The [facility] Comment on above: Performed By: #### C BCDSAT ####[facility] PATHOLOGY [id number] [place], MCH (RBC) [Entitic mass] 34.6 pg High 26.0-34.0 The [facility] Comment on above: Performed By: #### C BCDSAT ####[facility] PATHOLOGY [id number] [place], MCHC (RBC) [Mass/Vol] 33.9 g/dL Normal 32.0-35.9 The [facility] Comment on above: Performed By: #### C BCDSAT ####[facility] PATHOLOGY [id number] [place], MCV (RBC) [Entitic vol] 102 fL High 80-100 The [facility] Comment on above: Performed By: #### C BCDSAT ####[facility] PATHOLOGY [id number] [place], Monocytes (Bld) [#/Vol] 0.72 10*3/uL Normal 0.20-1.00 The [facility] Comment on above: Performed By: #### C BCDSAT ####[facility] PATHOLOGY [id number] [place], Monocytes/100 WBC (Bld) 8.7 % Normal 2.0-11.0 The [facility] Comment on above: Performed By: #### C BCDSAT ####[facility] PATHOLOGY [id number] [place], Neutrophils (Bld) [#/Vol] 5.11 10*3/uL Normal 1.50-8.00 The [facility] Comment on above: Performed By: #### C BCDSAT ####[facility] PATHOLOGY [id number] [place], Neutrophils/100 WBC (Bld) 62.3 % Normal 31.0-76.0 [facility] [place] Comment on above: Performed By: #### C BCDSAT ####S PATHOLOGY [id number] [place], Platelet mean volume (Bld) [Entitic vol] 8.5 fL Normal 7.5-11.2 [facility] [place] Comment on above: Performed By: #### C BCDSAT ####S PATHOLOGY [id number] [place], Platelets (Bld) [#/Vol] 206 10*3/uL Normal 150-400 [facility] [place] Comment on above: Performed By: #### C BCDSAT ####[facility] [id number] [place], RBC (Bld) [#/Vol] 4.00 10*6/uL Low 4.50-5.90 [facility] [place] Comment on above: Performed By: #### C BCDSAT ####S PATHOLOGY [id number] [place], WBC (Bld) [#/Vol] 8.2 10*3/uL Normal 4.5-11.5 [facility] Comment on above: Performed By: #### C BCDSAT ####[facility] PATHOLOG[facility] [id number] [place], LACTIC ACIDOrdered By: Connor Delacruz on 10-06-2024 Interpretation and review of laboratory results Abnormal [facility] Lactate [Moles/Vol] 2.4 mmol/L High 0.5 - 1. 6 mmol/L [facility] This test was developed, and its performance characteristics determined by the Department of Pathology of The [facility]. It has not been cleared or approved by the FDA. This test is used for clinical purposes only. [facility] LACTIC ACIDon 10-06-2024 CR LACT 2.4 mmol/L High 0.5-1.6 The [facility] Comment on above: Order Comment: This test was developed, and its performance characteristics determined by the Department of Pathology of The [facility]. It has not been cleared or approved by the FDA. This test is used for clinical purposes only. Performed By: #### L ACT ####[facility] [id number] [place], [place], MAGNESIUMon 10-06-2024 Magnesium [Mass/Vol] 2.1 mg/dL 1.9 - 2 .7 mg/dL [facility] Magnesium [Mass/Vol] 2.1 mg/dL Normal 1.9-2.7 [facility] Comment on above: Performed By: #### P HOS, CH8, MG ####[facility] [id number] [place], No Panel Informationon 10-06 Interpretation and review of laboratory results Normal [facility] PHOSPHORUSon 10-06-2024 Phosphate [Mass/Vol] 3.3 mg/dL 2.5 - 5 .0 mg/dL [facility] Phosphate [Mass/Vol] 3.3 mg/dL Normal 2.5-5.0 [facility] Comment on above: Performed By: #### P HOS, CH8, MG ####[facility] [id number] [place], [place], Progress Noteson 10-06-2024 Manager Women Authentication Interface Message Text 10/06/2024 - Patient given AM medications. Patient spit out medications. Patient states that he has bad kidneys and medications make him sick. This RN educated on the importance of the medication. MD notified. Normal [facility] Manager Women Authentication Interface Message Text Normal [facility] Manager Women Authentication Interface Message Text Normal [facility] BASIC METABOLIC PANELon 04-0 Anion gap [Moles/Vol] 19 mmol/L Normal 10-20 [facility] [place] Comment on above: Performed By: #### C H8, PHOS, MG ####[facility] [id number] [place], Calcium [Mass/Vol] 8.1 mg/dL Low 8.6-10.3 [facility] [place] Comment on above: Performed By: #### C H8, PHOS, MG ####[facility] [id number] [place], Chloride [Moles/Vol] 97 mmol/L Low 98-107 [facility] Comment on above: Performed By: #### ASHLEIGH Short MG ####[facility] [id number] [place], CO2 [Moles/Vol] 23 mmol/L Normal 21-31 [facility] Comment on above: Performed By: #### ASHLEIGH Short MG ####[facility] [id number] [place], Creatinine [Mass/Vol] 2.18 mg/dL High 0.70-1.30 [facility] Comment on above: Performed By: #### ASHLEIGH Short MG ####[facility] [id number] [place], ESTIMATED GFR (CKD-EPI) 37 mL/min/1.73sqm Low >=60 [facility] Comment on above: Result Comment: 2020 CKD EPI Equation using Creatinine without RaceComment: Estimated glomerular filtration rate (eGFR) is calculated without a race coefficient. Values should be interpreted in the context of the patient's full clinical presentation.Reference:1. Berny C, Basonia M, Alecia DC, et al.. A Unifying Approach for GFR Estimation: Recommendations of the NKF-ASN Task Force on Reassessing the Inclusion of Race in Diagnosing Kidney Disease. [place] Journal of Kidney Diseases 2021;79(2):268-88.e1.2. N Engl J Med 2020 Vol. 385 Issue 19 Pages 4261-1776 Performed By: #### ASHLEIGH Short MG ####[facility] [id number] [place], Glucose [Mass/Vol] 124 mg/dL High 74-109 [facility] Comment on above: Performed By: #### ASHLEIGH Short MG ####[facility] [id number] [place], Potassium [Moles/Vol] 4.8 mmol/L Normal 3.5-5.0 [facility] Comment on above: Performed By: #### ASHLEIGH Short MG ####[facility] [id number] [place], Sodium [Moles/Vol] 134 mmol/L Low 136-145 [facility] Comment on above: Performed By: #### Kelly Crystal8ASHLEIGH MG ####[facility] [id number] [place], Urea nitrogen [Mass/Vol] 51 mg/dL High 7-25 [facility] Comment on above: Performed By: #### ASHLEIGH Short MG ####[facility] [id number] [place], Basic metabolic 2000 panelon 10-05-2024 Anion gap [Moles/Vol] 19 mmol/L 10 - 20 [facility] Calcium [Mass/Vol] 8.1 mg/dL Low 8.6 - 10. 3 mg/dL [facility] Chloride [Moles/Vol] 97 mmol/L Low 98 - 10 7 mmol/L [facility] CO2 [Moles/Vol] 23 mmol/L 21 - 31 mmol/L [facility] Creatinine [Mass/Vol] 2.18 mg/dL High 0.70 - 1.30 mg/dL [facility] GFR/1.73 sq M.predicted CKD-EPI (S/P/Bld) [Vol rate/Area] 37 Low - PINF [facility] Comment on above: 2020 CKD EPI Equatio n using Creatinine without Race Comment: Estimated glomerular filtration rate (eGFR) is calculated without a race coefficient. Values should be interpreted in the context of the patient's full clinical presentation. Reference: 1. Berny C, Melonie M, Alecia BABCOCK, et al.. A Unifying Approach for GFR Estimation: Recommendations of the NKF-ASN Task Force on Reassessing the Inclusion of Race in Diagnosing Kidney Disease. [place] Journal of Kidney Diseases 202;79(2):268-88.e1. 2. N Engl J Med 1 Vol. 385 Issue 19 Pages 3436-7404 Glucose [Mass/Vol] 124 mg/dL High 74 - 109 mg/dL [facility] Interpretation and review of laboratory results Abnormal [facility] Potassium [Moles/Vol] 4.8 mmol/L 3.5 - 5.0 mmol/L [facility] Sodium [Moles/Vol] 134 mmol/L Low 136 - 145 mmol/L [facility] Urea nitrogen [Mass/Vol] 51 mg/dL High 7 - 25 mg/dL [facility] CBC WITH DIFFERENTIALOrdered By: Laxmi Pak on 10-05-2024 Erythrocyte distribution width (RBC) [Ratio] 15.2 % High 11.5 - 14.5 % [facility] Hematocrit (Bld) [Volume fraction] 39.7 % Low 41.0 - 53.0 % [facility] Hemoglobin (Bld) [Mass/Vol] 13.3 g/dL Low 13.9 - 16.3 g/dL [facility] MCH (RBC) [Entitic mass] 34.7 pg High 26.0 - 34.0 pg [facility] MCHC (RBC) [Mass/Vol] 33.4 g/dL 32.0 - 35.9 g/dL [facility] MCV (RBC) [Entitic vol] 104 fL High 80 - 100 fL [facility] Platelet mean volume (Bld) [Entitic vol] 8.2 fL 7.5 - 11.2 fL [facility] Platelets (Bld) [#/Vol] 195 10*3/uL 150 - 400 K/uL [facility] RBC (Bld) [#/Vol] 3.83 10*6/uL Low [facility] WBC (Bld) [#/Vol] 9.2 10*3/uL 4.5 - 11.5 K/uL [facility] CBC WITH DIFFERENTIALon Erythrocyte distribution width (RBC) [Ratio] 15.2 % High 11.5-14.5 [facility] Comment on above: Performed By: #### GILBERTO JARRETT ####[facility] [id number] [place], [place], Hematocrit (Bld) [Volume fraction] 39.7 % Low 41.0-53.0 [facility] Comment on above: Performed By: #### GILBERTO JARRETT ####[facility] [id number] [place], Hemoglobin (Bld) [Mass/Vol] 13.3 g/dL Low 13.9-16.3 The [facility] Comment on above: Performed By: #### Kelly GRANGER, MDIFF ####[facility] [id number] [place], MCH (RBC) [Entitic mass] 34.7 pg High 26.0-34.0 The [facility] Comment on above: Performed By: #### GILBERTO JARRETT ####[facility] [id number] [place], MCHC (RBC) [Mass/Vol] 33.4 g/dL Normal 32.0-35.9 The [facility] Comment on above: Performed By: #### GILBERTO JARRETT ####[facility] [id number] [place], MCV (RBC) [Entitic vol] 104 fL High 80-100 The [facility] Comment on above: Performed By: #### GILBERTO JARRETT ####[facility] PATHOLOGY [id number] [place], Platelet mean volume (Bld) [Entitic vol] 8.2 fL Normal 7.5-11.2 The [facility] Comment on above: Performed By: ###GILBERTO COLLADO ####[facility] PATHOLOGY [id number] [place], Platelets (Bld) [#/Vol] 195 10*3/uL Normal 150-400 The [facility] Comment on above: Performed By: ###GILBERTO COLLADO ####[facility] [id number] [place], RBC (Bld) [#/Vol] 3.83 10*6/uL Low 4.50-5.90 The [facility] Comment on above: Performed By: ###GILBERTO COLLADO ####S PATHOLOGY [id number] [place], WBC (Bld) [#/Vol] 9.2 10*3/uL Normal 4.5-11.5 The [facility] Comment on above: Performed By: ###GILBETRO COLLADO ####S PATHOLOGY [id number] [place], Consultson 10-05-2024 Manager Women Authentication Interface Message Text Normal The [facility] LACTIC ACIDOrdered By: Daniel Vera on 10-05-2024 Interpretation and review of laboratory results Abnormal [facility] Lactate [Moles/Vol] 3.5 mmol/L Critically high 0.5 - 1.6 mmol/L [facility] This test was developed, and its performance characteristics determined by the Department of Pathology of The [facility]. It has not been cleared or approved by the FDA. This test is used for clinical purposes only. [facility] LACTIC ACIDon 10-05-2024 CR LACT 3.5 mmol/L Critically high 0.5-1.6 The [facility] Comment on above: Order Comment: This test was developed, and its performance characteristics determined by the Department of Pathology of The [facility]. It has not been cleared or approved by the FDA. This test is used for clinical purposes only. Performed By: #### L ACT ####[facility] [id number] [place], Laboratory - Microbiology an d Antimicrobial susceptibilityon 10-05-2024 Bacteria identified Cx Nom (Bld) No Growth [facility] MAGNESIUMon 10-05-2024 Magnesium [Mass/Vol] 2.1 mg/dL 1.9 - 2 .7 mg/dL [facility] Magnesium [Mass/Vol] 2.1 mg/dL Normal 1.9-2.7 The [facility] Comment on above: Performed By: #### C H8, PHOS, MG ####[facility] [id number] [place], MANUAL DIFF AND MORPHon Ector cells LM Ql (Bld) Few [facility] Cells Counted Total (Bld) [#] 100 {cells} [facility] Dacrocytes LM Ql (Bld) Few [facility] Lymphocytes (Bld) [#/Vol] 1.56 10*3/uL 1.00 - 4.80 K/uL [facility] Lymphocytes/100 WBC (Bld) 17 % Low 24.0 - 44.0 % [facility] Macrocytes Ql (Bld) Slight [facility] Monocytes (Bld) [#/Vol] 0.64 10*3/uL 0.20 - 1.00 K/uL [facility] Monocytes/100 WBC (Bld) 7 % 2.0 - 11.0 % [facility] Neutrophils (Bld) [#/Vol] 6.99 10*3/uL 1.50 - 8.00 K/uL [facility] Neutrophils/100 WBC (Bld) 76 % 31.0 - 76.0 % [facility] Ovalocytes LM Ql (Bld) Few Me [facility] Polychromasia LM Ql (Bld) Slight [facility] Schistocytes LM Ql (Bld) Few [facility] SUSIE CELLS Few Normal [facility] Comment on above: Performed By: #### GILBERTO JARRETT ####[facility] [id number] [place], CELLS COUNTED TOTAL # IN BLOOD 100 Normal The [facility] Comment on above: Performed By: #### GILBERTO JARRETT ####[facility] [id number] [place], FRAGMENTED RBC Few Normal The [facility] Comment on above: Performed By: #### GILBERTO JARRETT ####S PATHOLOGY [id number] [place], LYMPHOCYTES % BY MANUAL COUNT 17.0 % Low 24.0-44.0 The [facility] Comment on above: Performed By: #### GILBERTO JARRETT ####S PATHOLOGY [id number] [place], LYMPHOCYTES ABS BY MANUAL COUNT 1.56 K/uL Normal 1.00-4.80 The [facility] Comment on above: Performed By: #### GILBERTO JARRETT ####S PATHOLOGY [id number] [place], MACROCYTOSIS Slight Normal The [facility] Comment on above: Performed By: #### GILBERTO JARRETT ####S PATHOLOGY [id number] [place], MONOCYTES % BY MANUAL COUNT 7.0 % Normal 2.0-11.0 The [facility] Comment on above: Performed By: #### GILBERTO JARRETT ####[facility] [id number] [place], MONOCYTES ABS BY MANUAL COUNT 0.64 K/uL Normal 0.20-1.00 The [facility] Comment on above: Performed By: #### GILBERTO JARRETT ####[facility] [id number] [place], NEUTROPHILS % BY MANUAL COUNT 76.0 % Normal 31.0-76.0 The [facility] Comment on above: Performed By: #### GILBERTO JARRETT ####[facility] [id number] [place], NEUTROPHILS ABS BY MANUAL COUNT 6.99 K/uL Normal 1.50-8.00 The [facility] Comment on above: Performed By: #### GILBERTO JARRETT ####S PATHOLOGY [id number] [place], OVALOCYTES Few Normal The [facility] Comment on above: Performed By: #### GILBERTO JARRETT ####[facility] [id number] [place], POLYCHROMASIA Slight Normal The [facility] Comment on above: Performed By: #### GILBERTO JARRETT ####[facility] [id number] [place], TEARDROP CELLS Few Normal The [facility] Comment on above: Performed By: #### GILBERTO JARRETT ####S PATHOLOGY [id number] [place], No Panel Informationon 10-05 Interpretation and review of laboratory results Normal [facility] Interpretation and review of laboratory results Abnormal [facility] Interpretation and review of laboratory results Normal [facility] PARTIAL THROMBOPLASTIN TIMEo n 10-05-2024 aPTT Coag (Bld) [Time] 30 s [facility] Interpretation and review of laboratory results Normal [facility] aPTT Coag (Bld) [Time] 30 s Normal 25-37 Th e [facility] Comment on above: Performed By: #### A PTT ####[facility] [id number] [place], PHOSPHORUSon 10-05-2024 Phosphate [Mass/Vol] 3.9 mg/dL 2.5 - 5 .0 mg/dL [facility] Phosphate [Mass/Vol] 3.9 mg/dL Normal 2.5-5.0 The [facility] Comment on above: Performed By: #### C H8, PHOS, MG ####[facility] [id number] [place], Progress Noteson 10-05-2024 Manager Women Authentication Interface Message Text Report received from amirah evans. Care assumed att Normal [facility] Manager Women Authentication Interface Message Text Normal [facility] Manager Women Authentication Interface Message Text Normal [facility] Manager Women Authentication Interface Message Text /GREG PALACIOS notified of critical Lactate value of 3.5. /GREG PALACIOS read back critical results. New orders not received. Normal [facility] Manager Women Authentication Interface Message Text Patient refuses labs this morning. aware Normal The [facility] Progress Notes - NoteWritero n 10-05-2024 Manager Women Authentication Interface Message Text Normal The [facility] Discharge Planning Noteon Manager Women Authentication Interface Message Text Normal [facility] Disruptive Behavior Progress Noteon 10-04-2024 Manager Women Authentication Interface Message Text Normal [facility] Progress Noteson 10-04-2024 Manager Women Authentication Interface Message Text Normal [facility] Manager Women Authentication Interface Message Text Normal [facility] Manager Women Authentication Interface Message Text Normal [facility] Progress Notes - NoteWritero n 10-04-2024 Manager Women Authentication Interface Message Text 12:30 AM Patient refusing labs at this time Normal [facility] Transfer Noteon 10-04-2024 Manager Women Authentication Interface Message Text Normal [facility] Consultson 10-03-2024 Manager Women Authentication Interface Message Text Normal [facility] Manager Women Authentication Interface Message Text Normal [facility] Disruptive Behavior Progress Noteon 10-03-2024 Manager Women Authentication Interface Message Text Normal [facility] Manager Women Authentication Interface Message Text Normal [facility] Manager Women Authentication Interface Message Text Normal [facility] Manager Women Authentication Interface Message Text Normal [facility] Progress Noteson 10-03-2024 Manager Women Authentication Interface Message Text Normal The [facility] Progress Notes - NoteWritero n 10-03-2024 Manager Women Authentication Interface Message Text 12:58 AM Unable to obtain lab work due to lack of access, patient is difficult stick and refusing peripheral sticks. Normal The [facility] BASIC METABOLIC PANELon Anion gap [Moles/Vol] 17 mmol/L Normal 10-20 [facility] Comment on above: Performed By: #### ASHLEIGH Arauz CH8 ####[facility] [id number] [place], Calcium [Mass/Vol] 8.2 mg/dL Low 8.6-10.3 The [facility] Comment on above: Performed By: #### ASHLEIGH Arauz, CH8 ####[facility] [id number] [place], Chloride [Moles/Vol] 100 mmol/L Normal 98-107 The [facility] Comment on above: Performed By: #### ASHLEIGH Arauz, CH8 ####[facility] [id number] [place], CO2 [Moles/Vol] 21 mmol/L Normal 21-31 The [facility] Comment on above: Performed By: #### ASHLEIGH Arauz, CH8 ####[facility] [id number] [place], Creatinine [Mass/Vol] 2.51 mg/dL High 0.70-1.30 [facility] Comment on above: Performed By: #### ASHLEIGH Arauz, CH8 ####[facility] [id number] [place], ESTIMATED GFR (CKD-EPI) 31 mL/min/1.73sqm Low >=60 The [facility] Comment on above: Result Comment: 2020 CKD EPI Equation using Creatinine without RaceComment: Estimated glomerular filtration rate (eGFR) is calculated without a race coefficient. Values should be interpreted in the context of the patient's full clinical presentation.Reference:1. Berny Mendoza, Melonie Varela, Alecia BABCOCK, et al.. A Unifying Approach for GFR Estimation: Recommendations of the NKF-ASN Task Force on Reassessing the Inclusion of Race in Diagnosing Kidney Disease. [place] Journal of Kidney Diseases 202;79(2):268-88.e1.2. N Engl J Med 2020 Vol. 385 Issue 19 Pages 0468-2229 Performed By: #### ASHLEIGH Arauz CH8 ####[facility] [id number] [place], Glucose [Mass/Vol] 182 mg/dL High 74-109 [facility] Comment on above: Performed By: #### ASHLEIGH Arauz CH8 ####[facility] [id number] [place], Potassium [Moles/Vol] 4.1 mmol/L Normal 3.5-5.0 [facility] Comment on above: Performed By: #### ASHLEIGH Arauz CH8 ####[facility] [id number] [place], Sodium [Moles/Vol] 134 mmol/L Low 136-145 [facility] Comment on above: Performed By: #### ASHLEIGH Arauz CH8 ####[facility] [id number] [place], Urea nitrogen [Mass/Vol] 45 mg/dL High 7-25 [facility] Comment on above: Performed By: #### ASHLEIGH Arauz CH8 ####[facility] [id number] [place], Basic metabolic 2000 panelon 10-02-2024 Anion gap [Moles/Vol] 17 mmol/L 10 - 20 [facility] [Mass/Vol] 8.2 mg/dL Low 8.6 - 10. 3 mg/dL [facility] Chloride [Moles/Vol] 100 mmol/L 98 - 10 7 mmol/L [facility] CO2 [Moles/Vol] 21 mmol/L 21 - 31 mmol/L [facility] Creatinine [Mass/Vol] 2.51 mg/dL High 0.70 - 1.30 mg/dL [facility] GFR/1.73 sq M.predicted CKD-EPI (S/P/Bld) [Vol rate/Area] 31 Low - PINF [facility] Comment on above: 2020 CKD EPI Equatio n using Creatinine without Race Comment: Estimated glomerular filtration rate (eGFR) is calculated without a race coefficient. Values should be interpreted in the context of the patient's full clinical presentation. Reference: 1. Berny C, Melonie M, Alecia DC, et al.. A Unifying Approach for GFR Estimation: Recommendations of the NKF-ASN Task Force on Reassessing the Inclusion of Race in Diagnosing Kidney Disease. [place] Journal of Kidney Diseases 202;79(2):268-88.e1. 2. N Engl J Med 2020 Vol. 385 Issue 19 Pages 2311-4006 Glucose [Mass/Vol] 182 mg/dL High 74 - 109 mg/dL [facility] Interpretation and review of laboratory results Abnormal [facility] Potassium [Moles/Vol] 4.1 mmol/L 3.5 - 5.0 mmol/L [facility] Sodium [Moles/Vol] 134 mmol/L Low 136 - 145 mmol/L [facility] Urea nitrogen [Mass/Vol] 45 mg/dL High 7 - 25 mg/dL [facility] CBC panel Auto (Bld)on 10-02 Erythrocyte distribution width (RBC) [Ratio] 14.5 % 11.5 - 14.5 % [facility] Hematocrit (Bld) [Volume fraction] 39.1 % Low 41.0 - 53.0 % [facility] Hemoglobin (Bld) [Mass/Vol] 13.2 g/dL Low 13.9 - 16.3 g/dL [facility] Interpretation and review of laboratory results Abnormal [facility] MCH (RBC) [Entitic mass] 34.5 pg High 26.0 - 34.0 pg [facility] MCHC (RBC) [Mass/Vol] 33.7 g/dL 32.0 - 35.9 g/dL [facility] MCV (RBC) [Entitic vol] 102 fL High 80 - 100 fL [facility] Platelet mean volume (Bld) [Entitic vol] 8.2 fL 7.5 - 11.2 fL [facility] Platelets (Bld) [#/Vol] 212 10*3/uL 150 - 400 K/uL [facility] RBC (Bld) [#/Vol] 3.82 10*6/uL Low [facility] WBC (Bld) [#/Vol] 12.4 10*3/uL High 4.5 - 11.5 K/uL [facility] COMPLETE BLOOD COUNTon 10-02 Erythrocyte distribution width (RBC) [Ratio] 14.5 % Normal 11.5-14.5 The [facility] Comment on above: Performed By: #### C BC ####[facility] PATHOLOGY [id number] [place] [address], Hematocrit (Bld) [Volume fraction] 39.1 % Low 41.0-53.0 The [facility] Comment on above: Performed By: #### C BC ####[facility] PATHOLOGY [id number] [place] [address], Hemoglobin (Bld) [Mass/Vol] 13.2 g/dL Low 13.9-16.3 The [facility] Comment on above: Performed By: #### C BC ####[facility] PATHOLOGY [id number] [place] [address], MCH (RBC) [Entitic mass] 34.5 pg High 26.0-34.0 The [facility] Comment on above: Performed By: #### C BC ####[facility] PATHOLOGY [id number] [place] [address], MCHC (RBC) [Mass/Vol] 33.7 g/dL Normal 32.0-35.9 The [facility] Comment on above: Performed By: #### C BC ####[facility] PATHOLOGY [id number] [place] [address], MCV (RBC) [Entitic vol] 102 fL High 80-100 The [facility] Comment on above: Performed By: #### C BC ####[facility] PATHOLOGY [id number] [place] [address], Platelet mean volume (Bld) [Entitic vol] 8.2 fL Normal 7.5-11.2 The [facility] Comment on above: Performed By: #### C BC ####[facility] PATHOLOGY [id number] [place] [address], Platelets (Bld) [#/Vol] 212 10*3/uL Normal 150-400 The [facility] Comment on above: Performed By: #### C BC ####[facility] [id number] [place], RBC (Bld) [#/Vol] 3.82 10*6/uL Low 4.50-5.90 The [facility] Comment on above: Performed By: #### C BC ####[facility] [id number] [place], WBC (Bld) [#/Vol] 12.4 10*3/uL High 4.5-11.5 The [facility] Comment on above: Performed By: #### C BC ####S PATHOLOGY [id number] [place], Consultson 10-02-2024 Manager Women Authentication Interface Message Text Normal The [facility] Manager Women Authentication Interface Message Text Normal The [facility] Diabetes tracking panelOrder ed By: Arvind Smith on 10-02-2024 Average glucose Estimated from glycated hemoglobin (Bld) [Mass/Vol] 128 mg/dL [facility] HbA1c (Bld) [Mass fraction] 6.1 % High 4.0 - 5.6 % [facility] Interpretation and review of laboratory results Abnormal [facility] Disruptive Behavior Progress Noteon 10-02-2024 Manager Women Authentication Interface Message Text Normal The [facility] Manager Women Authentication Interface Message Text Normal The [facility] Manager Women Authentication Interface Message Text Normal The [facility] Manager Women Authentication Interface Message Text Normal The [facility] Manager Women Authentication Interface Message Text Normal The [facility] EKG 12 LEAD - PERFORMon Diagnosis Poor data quality, interpretation may be adversely affected Sinus tachycardia Nonspecific intraventricular block Abnormal ECG When compared with ECG of 06-SEP-2024 15:21, change in axis- possible lead placement abnormality Confirmed by Juan BAKER KATHLEEN ([id number]) on 10/02/2024 11:02:35 [facility] 112 BPM [facility] P wave axis 79 degrees [facility] P-R Interval 142 ms [facility] Q-T interval 382 ms [facility] Q-T interval corrected 521 ms [facility] QRS axis 218 degrees [facility] QRS duration 152 ms [facility] T wave axis -58 degrees [facility] LACTIC ACIDOrdered By: Megan Mcgill on 10-02-2024 Interpretation and review of laboratory results Abnormal [facility] Lactate [Moles/Vol] 2 mmol/L High 0.5 - 1. 6 mmol/L [facility] This test was developed, and its performance characteristics determined by the Department of Pathology of The [facility]. It has not been cleared or approved by the FDA. This test is used for clinical purposes only. [facility] LACTIC ACIDon 10-02-2024 CR LACT 2.0 mmol/L High 0.5-1.6 The [facility] Comment on above: Order Comment: This test was developed, and its performance characteristics determined by the Department of Pathology of The [facility]. It has not been cleared or approved by the FDA. This test is used for clinical purposes only. Performed By: #### L ACT ####[facility] [id number] [place], MAGNESIUMon 10-02-2024 Magnesium [Mass/Vol] 1.9 mg/dL 1.9 - 2 .7 mg/dL [facility] Magnesium [Mass/Vol] 1.9 mg/dL Normal 1.9-2.7 The [facility] Comment on above: Performed By: #### M Carmen, NICKS, CH8 ####[facility] [id number] [place], No Panel Informationon 10-02 Interpretation and review of laboratory results Normal [facility] PARTIAL THROMBOPLASTIN TIMEo n 10-02-2024 aPTT Coag (Bld) [Time] 28 s [facility] Interpretation and review of laboratory results Normal [facility] aPTT Coag (Bld) [Time] 28 s Normal 25-37 Th e [facility] Comment on above: Performed By: #### A PTT ####[facility] [id number] [place], PHOSPHORUSon 10-02-2024 Phosphate [Mass/Vol] 4.2 mg/dL 2.5 - 5 .0 mg/dL [facility] Phosphate [Mass/Vol] 4.2 mg/dL Normal 2.5-5.0 The [facility] Comment on above: Performed By: #### M ASHLEIGH Morales CH8 ####[facility] [id number] [place], [id number] Procedureson 10-02-2024 Manager Women Authentication Interface Message Text Normal The [facility] Progress Noteson 10-02-2024 Manager Women Authentication Interface Message Text Normal [facility] Manager Women Authentication Interface Message Text Normal [facility] Manager Women Authentication Interface Message Text Patient refusing to be hooked to any IV medications. Physicians made aware of patient's refusal. (Heparin and IV ABX) Normal [facility] [employer] [facility] Manager Women Authentication Interface Message Text Patient unhooked self from monitor for bathroom. Is unmonitored at this time until he is out of bathroom Normal [facility] [facility] XR CHEST AP OR PA 1 VIEWon 0 10-02-2024 XR CHEST AP OR PA 1 VIEW Normal [facility] [facility] XR CHEST AP OR PA 1 VIEW Normal [facility] XR Chest Single viewon 10-02 EXAMINATION: XR CHES T AP OR PA 1 VIEW 10/02/2024 07:43 PM CLINICAL HISTORY: Central line assessment ASSOCIATED DIAGNOSIS: Central line assessment ORDERING PROVIDER: STEVEN LAGUNA TECHNOLOGISTS NOTE: COMPARISON: XR CHEST AP OR PA 1 VIEW 09/30/2024, 5:45 PM, XR CHEST AP OR PA 1 VIEW 10/02/2024, 8:09 PM FINDINGS: Lines, tubes, and devices: Left IJ approach central venous catheter crosses midline and is directed superiorly, likely within the right internal jugular vein. Of note, this was removed on subsequent chest radiograph time stamped 7:42 PM. Lungs and pleura: Pulmonary vascular congestion with mild interstitial prominence.. New hazy opacity in the right lung base. No pneumothorax or right pleural effusion. The left costophrenic angle is partially obscured. Cardiomediastinal silhouette: Cardiomegaly. Musculoskeletal: Unremarkable. IMPRESSION: 1. Malposition of the left IJ central venous catheter. Of note, this was removed on subsequent chest radiograph time stamped 7:42 PM. 2. New hazy opacity in the right lower lobe which may reflect atelectasis or developing infectious/inflammato ry process. Attention on follow-up is recommended. 3. Cardiomegaly and pulmonary vascular congestion. MACRO: None I have personally reviewed the images and agree with the resident's interpretation. RADIOLOGY Francisca Coronado MD - 10/02/2024 EXAMINATION: XR CHEST AP OR PA 1 VIEW 10/02/2024 07:43 PM CLINICAL HISTORY: Central line assessment ASSOCIATED DIAGNOSIS: Central line assessment ORDERING PROVIDER: STEVEN LAGUNA TECHNOLOGISTS NOTE: COMPARISON: XR CHEST AP OR PA 1 VIEW 09/30/2024, 5:45 PM, XR CHEST AP OR PA 1 VIEW 10/02/2024, 8:09 PM FINDINGS: Lines, tubes, and devices: Left IJ approach central venous catheter crosses midline and is directed superiorly, likely within the right internal jugular vein. Of note, this was removed on subsequent chest radiograph time stamped 7:42 PM. Lungs and pleura: Pulmonary vascular congestion with mild interstitial prominence.. New hazy opacity in the right lung base. No pneumothorax or right pleural effusion. The left costophrenic angle is partially obscured. Cardiomediastinal silhouette: Cardiomegaly. Musculoskeletal: Unremarkable. IMPRESSION: 1. Malposition of the left IJ central venous catheter. Of note, this was removed on subsequent chest radiograph time stamped 7:42 PM. 2. New hazy opacity in the right lower lobe which may reflect atelectasis or developing infectious/inflammato ry process. Attention on follow-up is recommended. 3. Cardiomegaly and pulmonary vascular congestion. MACRO: None I have personally reviewed the images and agree with the resident's interpretation. [facility] Sammi Brothers MD - 10/02/2024 EXAMINATION: XR CHEST AP OR PA 1 VIEW 10/02/2024 08:04 PM CLINICAL HISTORY: Pneumothorax assessment, post-procedure ASSOCIATED DIAGNOSIS: Pneumothorax assessment, post-procedure ORDERING PROVIDER: SCOTTY LUJAN TECHNOLOGISTS NOTE: COMPARISON: 10/02/2024 at 7:17: 20/9 and 09/30/2024 FINDINGS: Lines, tubes, and devices: Overlying telemetry leads are noted. Lungs and pleura: There is mild opacity in the right base from mild atelectasis aspiration or pneumonia. This has progressed since the prior study of 09/30/2024. Continued follow-up exam is recommended. No evidence of pneumothorax. Cardiomediastinal silhouette: Cardiomegaly is unchanged. Musculoskeletal: Unchanged. IMPRESSION: No evidence of pneumothorax. Opacity in the right base is noted suggesting mild atelectasis and pneumonia aspiration. Continued follow-up exam is recommended. MACRO: None [facility] [facility] Study observation (narrative) [facility] Study observation (narrative) [facility] [facility] XR Chest Single viewOrdered By: Francisca Coronado on 10-02-2024 [employer] Work Phone: XR Chest Single viewOrdered By: Sammi Brothers on 10-02-2024 [employer] Work Phone: BASIC METABOLIC PANELon 04-0 Anion gap [Moles/Vol] 19 mmol/L Normal 10-20 [facility] [facility] Comment on above: Performed By: #### C H8, HDL, MG, PHOS ####[facility] [id number] [place], [place], Calcium [Mass/Vol] 8.4 mg/dL Low 8.6-10.3 [facility] [facility] Comment on above: Performed By: #### C H8, HDL, MG, PHOS ####[facility] [id number] [place], Chloride [Moles/Vol] 104 mmol/L Normal 98-107 [facility] Comment on above: Performed By: #### C H8, HDL, MG, PHOS ####[facility] [id number] [place], CO2 [Moles/Vol] 20 mmol/L Low 21-31 [facility] Comment on above: Performed By: #### C H8, HDL, MG, PHOS ####[facility] [id number] [place], Creatinine [Mass/Vol] 2.33 mg/dL High 0.70-1.30 [facility] [facility] Comment on above: Performed By: #### C H8, HDL, MG, PHOS ####[facility] [id number] [place], ESTIMATED GFR (CKD-EPI) 34 mL/min/1.73sqm Low >=60 [facility] Comment on above: Result Comment: 2020 CKD EPI Equation using Creatinine without RaceComment: Estimated glomerular filtration rate (eGFR) is calculated without a race coefficient. Values should be interpreted in the context of the patient's full clinical presentation.Reference:1. Berny C, Melonie M, Alecia BABCOCK, et al.. A Unifying Approach for GFR Estimation: Recommendations of the NKF-ASN Task Force on Reassessing the Inclusion of Race in Diagnosing Kidney Disease. Dutch Journal of Kidney Diseases 2021;79(2):268-88.e1.2. N Engl J Med 2020 Vol. 385 Issue 19 Pages 3318-6775 Performed By: #### C H8, HDL, MG, PHOS ####[facility] [id number] [place], Glucose [Mass/Vol] 151 mg/dL High 74-109 [facility] Comment on above: Performed By: #### C H8, HDL, MG, PHOS ####[facility] [id number] [place], Potassium [Moles/Vol] 4.5 mmol/L Normal 3.5-5.0 [facility] Comment on above: Performed By: #### C H8, HDL, MG, PHOS ####[facility] [id number] [place], Sodium [Moles/Vol] 138 mmol/L Normal 136-145 [facility] Comment on above: Performed By: #### C H8, HDL, MG, PHOS ####[facility] [id number] [place], Urea nitrogen [Mass/Vol] 41 mg/dL High 7-25 [facility] Comment on above: Performed By: #### C H8, HDL, MG, PHOS ####[facility] [id number] [place], [phone] Basic metabolic 2000 panelon 10-01-2024 Anion gap [Moles/Vol] 19 mmol/L 10 - 20 [facility] Calcium [Mass/Vol] 8.4 mg/dL Low 8.6 - 10. 3 mg/dL [facility] Chloride [Moles/Vol] 104 mmol/L 98 - 10 7 mmol/L [facility] CO2 [Moles/Vol] 20 mmol/L Low 21 - 31 mmol/L [facility] Creatinine [Mass/Vol] 2.33 mg/dL High 0.70 - 1.30 mg/dL [facility] GFR/1.73 sq M.predicted CKD-EPI (S/P/Bld) [Vol rate/Area] 34 Low - PINF [facility] Comment on above: 2020 CKD EPI Equatio n using Creatinine without Race Comment: Estimated glomerular filtration rate (eGFR) is calculated without a race coefficient. Values should be interpreted in the context of the patient's full clinical presentation. Reference: 1. Berny C, Melonie M, Alecia BABCOCK, et al.. A Unifying Approach for GFR Estimation: Recommendations of the NKF-ASN Task Force on Reassessing the Inclusion of Race in Diagnosing Kidney Disease. [place] Journal of Kidney Diseases 202;79(2):268-88.e1. 2. N Engl J Med 1 Vol. 385 Issue 19 Pages 8715-5576 Glucose [Mass/Vol] 151 mg/dL High 74 - 109 mg/dL [facility] Interpretation and review of laboratory results Abnormal [facility] Potassium [Moles/Vol] 4.5 mmol/L 3.5 - 5.0 mmol/L [facility] Sodium [Moles/Vol] 138 mmol/L 136 - 145 mmol/L [facility] Urea nitrogen [Mass/Vol] 41 mg/dL High 7 - 25 mg/dL [facility] CBC WITH DIFFERENTIALOrdered By: Carla Garcia on 10-01-2024 Erythrocyte distribution width (RBC) [Ratio] 14.9 % High 11.5 - 14.5 % [facility] Hematocrit (Bld) [Volume fraction] 42.8 % 41.0 - 53.0 % [facility] Hemoglobin (Bld) [Mass/Vol] 14.2 g/dL 13.9 - 16.3 g/dL [facility] MCH (RBC) [Entitic mass] 34.6 pg High 26.0 - 34.0 pg [facility] MCHC (RBC) [Mass/Vol] 33.2 g/dL 32.0 - 35.9 g/dL [facility] MCV (RBC) [Entitic vol] 104 fL High 80 - 100 fL [facility] Platelet mean volume (Bld) [Entitic vol] 8.5 fL 7.5 - 11.2 fL [facility] Platelets (Bld) [#/Vol] 227 10*3/uL 150 - 400 K/uL [facility] RBC (Bld) [#/Vol] 4.11 10*6/uL [facility] WBC (Bld) [#/Vol] 10.9 10*3/uL 4.5 - 11.5 K/uL [facility] CBC WITH DIFFERENTIALon Erythrocyte distribution width (RBC) [Ratio] 14.9 % High 11.5-14.5 The [facility] System Comment on above: Performed By: #### GILBERTO JARRETT ####[facility] PATHOLOGY [id number] [place] [address], #### HB A1C ####[facility] PATHOLOGY LABORATORY [address] [place] [address], Hematocrit (Bld) [Volume fraction] 42.8 % Normal 41.0-53.0 The [facility] System Comment on above: Performed By: #### GILBERTO JARRETT ####[facility] PATHOLOGY [id number] [place] [address], #### HB A1C ####[facility] PATH[facility] LABORATORY [address] [place], [place], Hemoglobin (Bld) [Mass/Vol] 14.2 g/dL Normal 13.9-16.3 The [facility] System Comment on above: Performed By: ###GILBERTO COLLADO ####[facility] PATHOLOGY [id number] [place] [address], #### HB A1C ####[facility] PATHOLOGY LABORATORY [address] [place], [place], MCH (RBC) [Entitic mass] 34.6 pg High 26.0-34.0 The [facility] Comment on above: Performed By: ###GILBERTO COLLADO ####[facility] PATHOLOGY [id number] [place] [address], #### HB A1C ####[facility] PATHOLOGY LABORATORY [address] [place], [place], MCHC (RBC) [Mass/Vol] 33.2 g/dL Normal 32.0-35.9 The [facility] Comment on above: Performed By: #### GILBERTO JARRETT ####[facility] PATHOLOGY [id number] [place] [address], #### HB A1C ####[facility] PATH[facility] LABORATORY [address] [place], [place], MCV (RBC) [Entitic vol] 104 fL High 80-100 The [facility] Comment on above: Performed By: ###GILBERTO COLLADO ####[facility] PATHOLOGY [id number] [place] [address], #### HB A1C ####[facility] PATHOLOGY LABORATORY [address] [place] [address], Platelet mean volume (Bld) [Entitic vol] 8.5 fL Normal 7.5-11.2 The [facility] Comment on above: Performed By: ###GILBERTO COLLADO ####[facility] PATHOLOGY [id number] [place] [address], #### HB A1C ####[facility] PATH[facility] LABORATORY [address] [place] [address], Platelets (Bld) [#/Vol] 227 10*3/uL Normal 150-400 The [facility] System Comment on above: Performed By: #### GILBERTO JARRETT ####[facility] PATHOLOGY [id number] [place] [address], #### HB A1C ####[facility] PATH[facility] LABOR[facility]ORY [address] [place], [place], RBC (Bld) [#/Vol] 4.11 10*6/uL Low 4.50-5.90 The [facility] Comment on above: Performed By: #### GILBERTO JARRETT ####[facility] PATHOLOGY [id number] [place], #### HB A1C ####S [facility] PATH[facility] LABORATORY [address] [place], [address] WBC (Bld) [#/Vol] 10.9 10*3/uL Normal 4.5-11.5 The [facility] System Comment on above: Performed By: #### GILBERTO JARRETT ####[facility] PATHOLOGY [id number] [place], #### HB A1C ####S [facility] PATH[facility] LABORATORY [address] [place], [address] FULL LIPID PROFILEon 025 Cholesterol [Mass/Vol] 152 mg/dL Normal <200 Th e [facility] System Comment on above: Result Comment: Michaela rable: < 200 mg/dLBorderline High: 200-239 mg/dLHigh: > = 240 mg/dL Performed By: #### C H8, HDL, MG, PHOS ####S PATHOLOGY [id number] [place], Cholesterol in LDL [Mass/Vol] 127 mg/dL High <100 The [facility] System Comment on above: Performed By: #### C H8, HDL, MG, PHOS ####S PATHOLOGY [id number] [place], Cholesterol.total/Chol esterol in HDL [Mass ratio] 9.50 {ratio} High <5.00 The [facility] System Comment on above: Performed By: #### C H8, HDL, MG, PHOS ####[facility] [id number] [place], HDL CHOL 16 mg/dL Low >40 The [facility] System Comment on above: Performed By: #### C H8, HDL, MG, PHOS ####[facility] [id number] [place], LDL/HDL 7.94 High <3.57 The [facility] System Comment on above: Performed By: #### C H8, HDL, MG, PHOS ####S PATHOLOGY [id number] [place], NON-HDL CHOLESTEROL 136 mg/dL High <130 The [facility] System Comment on above: Performed By: #### Kelly Simon, HDL, MG, PHOS ####S PATHOLOGY [id number] [place], Triglyceride [Mass/Vol] 66 mg/dL Normal <150 The [facility] System Comment on above: Result Comment: Norm al: < 150 mg/dLBorderline High: 150-199 mg/dLHigh: 200-499 mg/dLVery High: > = 500 mg/dL Performed By: #### Kelly H8, HDL, MG, PHOS ####S PATHOLOGY [id number] [place], [place], H AND Timo 10-01-2024 Manager Women Authentication Interface Message Text Normal The [facility] System HEMOGLOBIN A1Con 10-01-2024 Glucose [Mass/Vol] 128 mg/dL Normal The [facility] System Comment on above: Performed By: #### GILBERTO JARRETT ####[facility] PATHOLOGY [id number] [place] [address], #### HB A1C ####S [facility] LABOR[facility]ORY [address] [place], [place], HbA1c (Bld) [Mass fraction] 6.1 % High 4.0-5.6 The [facility] System Comment on above: Performed By: ###GILBERTO COLLADO ####[facility] PATHOLOGY [id number] [place], #### HB A1C ####S [facility] PATH[facility] LABOR[facility]ORY [address] [place], [address] LACTIC ACIDOrdered By: Laura Michaud on 10-01-2024 Interpretation and review of laboratory results Abnormal [facility] Lactate [Moles/Vol] 5 mmol/L Critically high 0.5 - 1.6 mmol/L [facility] This test was developed, and its performance characteristics determined by the Department of Pathology of The [facility] System. It has not been cleared or approved by the FDA. This test is used for clinical purposes only. [facility] LACTIC ACIDon 10-01-2024 CR LACT 5.0 mmol/L Critically high 0.5-1.6 The [facility] System Comment on above: Order Comment: This test was developed, and its performance characteristics determined by the Department of Pathology of The [facility] System. It has not been cleared or approved by the FDA. This test is used for clinical purposes only. Performed By: #### L ACT ####[facility] PATHOLOGY [id number] [place], [place], CR LACT 3.5 mmol/L Critically high 0.5-1.6 The [facility] System Comment on above: Order Comment: This test was developed, and its performance characteristics determined by the Department of Pathology of The [facility] System. It has not been cleared or approved by the FDA. This test is used for clinical purposes only. Performed By: #### L ACT ####[facility] PATHOLOGY [id number] [place], LACTIC ACIDOrdered By: Asia Xie on 10-01-2024 Interpretation and review of laboratory results Abnormal [facility] Lactate [Moles/Vol] 3.5 mmol/L Critically high 0.5 - 1.6 mmol/L [facility] This test was developed, and its performance characteristics determined by the Department of Pathology of The [facility] System. It has not been cleared or approved by the FDA. This test is used for clinical purposes only. [facility] Lipid 1996 panelon Cholesterol [Mass/Vol] 152 mg/dL NINF - 200 mg/dL [facility] Comment on above: Desirable: < 200 mg/ dL Borderline High: 200-239 mg/dL High: > = 240 mg/dL Cholesterol in HDL [Mass/Vol] 16 mg/dL Low 40 - PINF mg/dL [facility] Cholesterol in LDL [Mass/Vol] 127 mg/dL High NINF - 100 mg/dL [facility] Cholesterol in LDL/Cholesterol in HDL [Mass ratio] 7.94 {ratio} High NINF - 3.57 [facility] Cholesterol non HDL [Mass/Vol] 136 mg/dL High NINF - 130 mg/dL [facility] Cholesterol.total/Chol esterol in HDL [Mass ratio] 9.5 {ratio} High NINF - 5.00 [facility] Interpretation and review of laboratory results Abnormal [facility] Triglyceride [Mass/Vol] 66 mg/dL NINF - 150 mg/dL [facility] Comment on above: Normal: < 150 mg/dL Borderline High: 150-199 mg/dL High: 200-499 mg/dL Very High: > = 500 mg/dL [facility] MAGNESIUMon 10-01-2024 Magnesium [Mass/Vol] 2 mg/dL 1.9 - 2 .7 mg/dL [facility] Magnesium [Mass/Vol] 2.0 mg/dL Normal 1.9-2.7 The [facility] System Comment on above: Performed By: #### Kelly H8, HDL, MG, PHOS ####S PATHOLOGY [id number] [place], MANUAL DIFF AND MORPHon Cells Counted Total (Bld) [#] 100 {cells} [facility] Lymphocytes (Bld) [#/Vol] 2.07 10*3/uL 1.00 - 4.80 K/uL [facility] Lymphocytes/100 WBC (Bld) 19 % Low 24.0 - 44.0 % [facility] Monocytes (Bld) [#/Vol] 0.44 10*3/uL 0.20 - 1.00 K/uL [facility] Monocytes/100 WBC (Bld) 4 % 2.0 - 11.0 % [facility] Neutrophils (Bld) [#/Vol] 8.39 10*3/uL High 1.50 - 8.00 K/uL [facility] Neutrophils/100 WBC (Bld) 77 % High 31.0 - 76.0 % [facility] RBC morphology finding Nom (Bld) Normal [facility] CELLS COUNTED TOTAL # IN BLOOD 100 Normal The [facility] System Comment on above: Performed By: #### GILBERTO JARRETT ####S PATHOLOGY [id number] [place], [place], #### HB A1C ####S [facility] PATH[facility] LABORATORY [address] [place], [address] LYMPHOCYTES % BY MANUAL COUNT 19.0 % Low 24.0-44.0 The [facility] System Comment on above: Performed By: #### GILBERTO JARRETT ####S PATHOLOGY [id number] [place] [address], #### HB A1C ####[facility] PATHOLOGY LABORATORY [address] [place], [address] LYMPHOCYTES ABS BY MANUAL COUNT 2.07 K/uL Normal 1.00-4.80 The [facility] Comment on above: Performed By: #### GILBERTO JARRETT ####[facility] PATHOLOGY [id number] [place] [address], #### HB A1C ####[facility] PATHOLOG[facility] LAB[facility]ATORY [address] [place], [address] MONOCYTES % BY MANUAL COUNT 4.0 % Normal 2.0-11.0 The [facility] System Comment on above: Performed By: #### GILBERTO JARRETT ####[facility] PATHOLOGY [id number] [place] [address], #### HB A1C ####[facility] PATHOLOGY LAB[facility]ATORY [address] [place] [address], [address] MONOCYTES ABS BY MANUAL COUNT 0.44 K/uL Normal 0.20-1.00 The [facility] System Comment on above: Performed By: #### GILBERTO JARRETT ####[facility] PATHOLOGY [id number] [place] [address], #### HB A1C ####[facility] PATHOLOG[facility]ORY [address] [place] [address], [address] NEUTROPHILS % BY MANUAL COUNT 77.0 % High 31.0-76.0 The [facility] Comment on above: Performed By: #### GILBERTO JARRETT ####[facility] PATHOLOGY [id number] [place] [address], #### HB A1C ####[facility] PATHOLOG[facility]ORY [address] [place], [address] NEUTROPHILS ABS BY MANUAL COUNT 8.39 K/uL High 1.50-8.00 The [facility] Comment on above: Performed By: #### GILBERTO JARRETT ####[facility] PATHOLOGY [id number] [place] [address], #### HB A1C ####[facility] PATH[facility] LABORATORY [address] [place] [address], [address] RBC MORPHOLOGY Normal Normal [facility] Comment on above: Performed By: #### C MD BÁRBARAIFF ####[facility] [id number] [place], [place], #### HB A1C ####[facility] [address] [place], [address] No Panel InformationOrdered By: Carla Garcia on 10-01-2024 Interpretation and review of laboratory results Abnormal [facility] No Panel Informationon 10-01 Interpretation and review of laboratory results Normal [facility] PHOSPHORUSon 10-01-2024 Phosphate [Mass/Vol] 4.9 mg/dL 2.5 - 5 .0 mg/dL [facility] Phosphate [Mass/Vol] 4.9 mg/dL Normal 2.5-5.0 [facility] Comment on above: Performed By: #### C H8, HDL, MG, PHOS ####[facility] [id number] [place], [place], Progress Noteson 10-01-2024 Manager Women Authentication Interface Message Text 1540: Critical lactate of 5.0, provider made aware. 1724: Rapid response RN notified of pending transfer to ICU. Vital signs stable, pt comfortable and cooperative, no concerns at this time. Normal [facility] Manager Women Authentication Interface Message Text Dr. Hutchinson notified of critical Lactate value of 3.5. Dr. Hutchinson read back critical results. New orders not received. Normal [facility] B TYPE NATRIURETIC PEPTIDEon 09-30-2024 Interpretation and review of laboratory results Abnormal [facility] Natriuretic peptide B (Bld) [Mass/Vol] 6470 pg/mL High NINF - 100.0 pg/mL [facility] Natriuretic peptide B (Bld) [Mass/Vol] 6470.0 pg/mL High <100.0 [facility] Comment on above: Performed By: #### B PL ####[facility] [id number] [place], [id number] BASIC METABOLIC PANELon Anion gap [Moles/Vol] 17 mmol/L Normal 10-20 [facility] Comment on above: Performed By: #### M G, HEPATIC, CH8, LIP ####[facility] [id number] [place], [id number] Calcium [Mass/Vol] 9.4 mg/dL Normal 8.6-10.3 [facility] Comment on above: Performed By: #### M G, HEPATIC, CH8, LIP ####[facility] [id number] [place] , [id number] Chloride [Moles/Vol] 98 mmol/L Normal 98-107 [facility] Comment on above: Performed By: #### M G, HEPATIC, CH8, LIP ####[facility] [id number] [place], [id number] CO2 [Moles/Vol] 23 mmol/L Normal 21-31 [facility] Comment on above: Performed By: #### M G, HEPATIC, CH8, LIP ####[facility] [id number] [facility] [place], [id number] Creatinine [Mass/Vol] 2.64 mg/dL High 0.70-1.30 [facility] Comment on above: Performed By: #### M G, HEPATIC, CH8, LIP ####[facility] [id number] [place], [id number] ESTIMATED GFR (CKD-EPI) 29 mL/min/1.73sqm Low >=60 [facility] Comment on above: Result Comment: 2020 CKD EPI Equation using Creatinine without RaceComment: Estimated glomerular filtration rate (eGFR) is calculated without a race coefficient. Values should be interpreted in the context of the patient's full clinical presentation.Reference:1. Berny C, Melonie M, Alecia DC, et al.. A Unifying Approach for GFR Estimation: Recommendations of the NKF-ASN Task Force on Reassessing the Inclusion of Race in Diagnosing Kidney Disease. Dutch Journal of Kidney Diseases 2021;79(2):268-88.e1.2. N Engl J Med 1 Vol. 385 Issue 19 Pages 8111-0159 Performed By: #### M G, HEPATIC, CH8, LIP ####[facility] [id number] [facility] , [id number] Glucose [Mass/Vol] 189 mg/dL High 74-109 [facility] Comment on above: Performed By: #### M G, HEPATIC, CH8, LIP ####[facility] [id number] [facility] , [id number] Potassium [Moles/Vol] 4.0 mmol/L Normal 3.5-5.0 [facility] Comment on above: Performed By: #### M G, HEPATIC, CH8, LIP ####[facility] [id number] [facility] , [id number] Sodium [Moles/Vol] 134 mmol/L Low 136-145 [facility] Comment on above: Performed By: #### M G, HEPATIC, CH8, LIP ####[facility] [id number] [facility] , [id number] Urea nitrogen [Mass/Vol] 43 mg/dL High 7-25 [facility] Comment on above: Performed By: #### M G, HEPATIC, CH8, LIP ####[facility] [id number] [facility] , [id number] BLOOD CULTUREon 09-30-2024 Bacteria identified Cx Nom (Bld) C BLOOD: No Growth Normal [facility] Comment on above: Performed By: #### C BLOOD ####[facility] [id number] [facility] [place], [id number] BLOOD GAS, VENOUSon 10-01-19 25 Base excess Calc (BldV) [Moles/Vol] -2.9000 mmol/L Low -2.0 - 3.0 mmol/L [facility] CO2 (BldV) [Partial pressure] 38.3 mm[Hg] Low [facility] HCO3 (Bld) [Moles/Vol] 22 mmol/L 21 - 28 mmol/L [facility] Interpretation and review of laboratory results Abnormal [facility] Oxygen (BldV) [Partial pressure] Low [facility] Oxygen saturation in Venous blood 10.1 % Low 70.0 - 80.0 % [facility] pH (BldV) 7.369 [pH] 7.320 - 7.430 [facility] CR ABEV -2.9 mmol/L Low -2.0-3.0 [facility] Comment on above: Performed By: #### C R BGV ####[facility] [id number] [facility] , [id number] CR HCO3V 22 mmol/L Normal 21-28 [facility] Comment on above: Performed By: #### C R BGV ####[facility] [id number] [place] , [id number] CR PHV 7.369 Normal 7.320-7.430 [facility] Comment on above: Performed By: #### C R BGV ####[facility] [id number] [place] , [id number] CR PVCO2 38.3 mm Hg Low 41.0-51.0 [facility] Comment on above: Performed By: #### C R BGV ####[facility] [id number] [place] , [id number] CR PVO2 < 30 Low 38-44 [facility] Comment on above: Performed By: #### C R BGV ####[facility] [id number] [place] , [id number] Oxygen saturation in Blood 10.1 % Low 70.0-80.0 [facility] Comment on above: Performed By: #### C R BGV ####[facility] [id number] [place] , [id number] Basic metabolic 2000 panelon 09-30-2024 Anion gap [Moles/Vol] 17 mmol/L 10 - 20 [facility] Calcium [Mass/Vol] 9.4 mg/dL 8.6 - 10. 3 mg/dL [facility] Chloride [Moles/Vol] 98 mmol/L 98 - 10 7 mmol/L [facility] CO2 [Moles/Vol] 23 mmol/L 21 - 31 mmol/L [facility] Creatinine [Mass/Vol] 2.64 mg/dL High 0.70 - 1.30 mg/dL [facility] GFR/1.73 sq M.predicted CKD-EPI (S/P/Bld) [Vol rate/Area] 29 Low - PINF [facility] Comment on above: 2020 CKD EPI Equatio n using Creatinine without Race Comment: Estimated glomerular filtration rate (eGFR) is calculated without a race coefficient. Values should be interpreted in the context of the patient's full clinical presentation. Reference: 1. Berny C, Melonie M, Alecia BABCOCK, et al.. A Unifying Approach for GFR Estimation: Recommendations of the NKF-ASN Task Force on Reassessing the Inclusion of Race in Diagnosing Kidney Disease. Dutch Journal of Kidney Diseases 2021;79(2):268-88.e1. 2. N Engl J Med 2020 Vol. 385 Issue 19 Pages 5868-9232 Glucose [Mass/Vol] 189 mg/dL High 74 - 109 mg/dL [facility] Interpretation and review of laboratory results Abnormal [facility] Potassium [Moles/Vol] 4 mmol/L 3.5 - 5.0 mmol/L [facility] Sodium [Moles/Vol] 134 mmol/L Low 136 - 145 mmol/L [facility] Urea nitrogen [Mass/Vol] 43 mg/dL High 7 - 25 mg/dL [facility] CBC WITH DIFFERENTIALon 04-0 Basophils (Bld) [#/Vol] 0 10*3/uL 0.00 - 0.20 K/uL [facility] Basophils/100 WBC (Bld) 0.3 % NINF - 1.9 % [facility] Eosinophils (Bld) [#/Vol] 0 10*3/uL 0.00 - 0.70 K/uL [facility] Eosinophils/100 WBC (Bld) 0.1 % 0.1 - 4.0 % [facility] Erythrocyte distribution width (RBC) [Ratio] 15.4 % High 11.5 - 14.5 % [facility] Hematocrit (Bld) [Volume fraction] 47.7 % 41.0 - 53.0 % [facility] Hemoglobin (Bld) [Mass/Vol] 15.6 g/dL 13.9 - 16.3 g/dL [facility] Interpretation and review of laboratory results Abnormal [facility] Lymphocytes (Bld) [#/Vol] 1.7 10*3/uL 1.00 - 4.80 K/uL [facility] Lymphocytes/100 WBC (Bld) 21.5 % Low 24.0 - 44.0 % [facility] MCH (RBC) [Entitic mass] 34.1 pg High 26.0 - 34.0 pg [facility] MCHC (RBC) [Mass/Vol] 32.6 g/dL 32.0 - 35.9 g/dL [facility] MCV (RBC) [Entitic vol] 105 fL High 80 - 100 fL [facility] Monocytes (Bld) [#/Vol] 0.6 10*3/uL 0.20 - 1.00 K/uL [facility] Monocytes/100 WBC (Bld) 7.7 % 2.0 - 11.0 % [facility] Neutrophils (Bld) [#/Vol] 5.4 10*3/uL 1.50 - 8.00 K/uL [facility] Neutrophils/100 WBC (Bld) 70.4 % 31.0 - 76.0 % [facility] Nucleated RBC (Bld) [#/Vol] 0.01 10*3/uL [facility] Nucleated RBC/100 WBC (Bld) [Ratio] [facility] Platelet mean volume (Bld) [Entitic vol] 8 fL 7.5 - 11.2 fL [facility] Platelets (Bld) [#/Vol] 299 10*3/uL 150 - 400 K/uL [facility] RBC (Bld) [#/Vol] 4.57 10*6/uL [facility] WBC (Bld) [#/Vol] 7.7 10*3/uL 4.5 - 11.5 K/uL [facility] Basophils (Bld) [#/Vol] 0.00 10*3/uL Normal 0.00-0.20 [facility] Comment on above: Performed By: #### C BCDSAT ####[facility] [id number] [place], [id number] Basophils/100 WBC (Bld) 0.3 % Normal <=1.9 [facility] Comment on above: Performed By: #### C BCDSAT ####[facility] [id number] [place], [id number] Eosinophils (Bld) [#/Vol] 0.00 10*3/uL Normal 0.00-0.70 [facility] Comment on above: Performed By: #### C BCDSAT ####[facility] [id number] [place] , [id number] Eosinophils/100 WBC (Bld) 0.1 % Normal 0.1-4.0 [facility] Comment on above: Performed By: #### C BCDSAT ####[facility] [id number] [place] , [id number] Erythrocyte distribution width (RBC) [Ratio] 15.4 % High 11.5-14.5 [facility] Comment on above: Performed By: #### C BCDSAT ####[facility] [id number] [place] , [id number] Hematocrit (Bld) [Volume fraction] 47.7 % Normal 41.0-53.0 [facility] Comment on above: Performed By: #### C BCDSAT ####[facility] [id number] [place] , [id number] Hemoglobin (Bld) [Mass/Vol] 15.6 g/dL Normal 13.9-16.3 [facility] Comment on above: Performed By: #### C BCDSAT ####[facility] [id number] [place] , [id number] Lymphocytes (Bld) [#/Vol] 1.70 10*3/uL Normal 1.00-4.80 [facility] Comment on above: Performed By: #### C BCDSAT ####[facility] [id number] [place] , [id number] Lymphocytes/100 WBC (Bld) 21.5 % Low 24.0-44.0 [facility] Comment on above: Performed By: #### C BCDSAT ####[facility] [id number] [place] , [id number] MCH (RBC) [Entitic mass] 34.1 pg High 26.0-34.0 [facility] Comment on above: Performed By: #### C BCDSAT ####[facility] PATHOLOGY [id number] [place] , [id number] MCHC (RBC) [Mass/Vol] 32.6 g/dL Normal 32.0-35.9 [facility] Comment on above: Performed By: #### C BCDSAT ####[facility] PATHOLOGY [id number] [place] , [id number] MCV (RBC) [Entitic vol] 105 fL High 80-100 [facility] Comment on above: Performed By: #### C BCDSAT ####[facility] [id number] [place], [id number] Monocytes (Bld) [#/Vol] 0.60 10*3/uL Normal 0.20-1.00 [facility] Comment on above: Performed By: #### C BCDSAT ####[facility] PATHOLOGY [id number] [place], [id number] Monocytes/100 WBC (Bld) 7.7 % Normal 2.0-11.0 [facility] Comment on above: Performed By: #### C BCDSAT ####[facility] PATHOLOGY [id number] [place] , [id number] Neutrophils (Bld) [#/Vol] 5.40 10*3/uL Normal 1.50-8.00 [facility] Comment on above: Performed By: #### C BCDSAT ####[facility] [id number] [place], [id number] Neutrophils/100 WBC (Bld) 70.4 % Normal 31.0-76.0 [facility] Comment on above: Performed By: #### C BCDSAT ####[facility] [id number] [place] , [id number] Nucleated RBC (Bld) [#/Vol] 10*3/uL Normal [facility] Comment on above: Performed By: #### C BCDSAT ####[facility] [id number] [place] , [id number] Nucleated RBC (Bld) [#/Vol] 0.01 10*3/uL Normal [facility] Comment on above: Performed By: #### C BCDSAT ####[facility] PATHOLOGY [address] , [id number] Platelet mean volume (Bld) [Entitic vol] 8.0 fL Normal 7.5-11.2 [facility] Comment on above: Performed By: #### C BCDSAT ####[facility] PATHOLOGY [address] , [id number] Platelets (Bld) [#/Vol] 299 10*3/uL Normal 150-400 The [facility] Comment on above: Performed By: #### C BCDSAT ####[address] , [id number] RBC (Bld) [#/Vol] 4.57 10*6/uL Normal 4.50-5.90 The [facility] Comment on above: Performed By: #### C BCDSAT ####[facility] PATHOLOGY [address] , [id number] WBC (Bld) [#/Vol] 7.7 10*3/uL Normal 4.5-11.5 The [facility] Comment on above: Performed By: #### C BCDSAT ####[facility] PATHOLOGY [address] , [id number] COVID/INFLUENZAon 09-30-2024 FLUAV RNA DEENA+probe Ql (Nph) Not detected Not Detected [facility] Comment on above: This assay was perfo rmed using Joyce DEQUAN RTPCR technology. FLUBV RNA DEENA+probe Ql (Nph) Not detected Not Detected [facility] Comment on above: This assay was perfo rmed using Joyce DEQUAN RTPCR technology. Interpretation and review of laboratory results Normal [facility] SARS-CoV-2 (COVID-19) Ab IA Ql Not Detected results are indicative of the absence of SARS-CoV-2 in the specimen submitted for testing. False negative results are possible based on the timing and quality of specimen submitted for testing. [facility] SARS-CoV-2 (COVID-19) RNA DEENA+probe Ql (Unsp spec) Not detected Not Detected [facility] Comment on above: This assay was perfo rmed using Joyce DEQUAN RTPCR technology. [facility] INFLUENZA A Not detected Normal Not Detected [facility] Comment on above: Order Comment: Not D etected results are indicative of the absence of SARS-CoV-2 in the specimen submitted for testing. False negative results are possible based on the timing and quality of specimen submitted for testing. Result Comment: This assay was performed using Joyce DEQUAN RTPCR technology. Performed By: #### F CLINT/COVID ####[facility] PATHOLOG[facility] [id number] [place] , [id number] INFLUENZA B Not detected Normal Not Detected The [facility] System Comment on above: Order Comment: Not D etected results are indicative of the absence of SARS-CoV-2 in the specimen submitted for testing. False negative results are possible based on the timing and quality of specimen submitted for testing. Result Comment: This assay was performed using Joyce DEQUAN RTPCR technology. Performed By: #### F CLINT/COVID ####[facility] [id number] [facility] , [id number] SARS-CoV-2 (COVID-19) RNA DEENA+probe Ql (Unsp spec) Not detected Normal Not Detected The [facility] System Comment on above: Order Comment: Not D etected results are indicative of the absence of SARS-CoV-2 in the specimen submitted for testing. False negative results are possible based on the timing and quality of specimen submitted for testing. Result Comment: This assay was performed using Joyce DEQUAN RTPCR technology. Performed By: #### F CLINT/COVID ####[facility] [id number] [facility] [place] [id number] CT ABDOMEN/PELVIS W/O CONTRA STon 09-30-2024 CT ABDOMEN/PELVIS W/O CONTRAST Normal The [facility] System CT Abdomen and Pelvis WO con trastOrdered By: Dariel De Souza on 09-30-2024 CT DLP 832.55 (mGy.cm) [facility] Work Phone: CT Series Topogram,ABD/PEL [facility] Work Phone: CTDI VOL 0.10 (mGy),15.87 (mGy) [facility] Work Phone: PHANTOM TYPE IEC Body Dosimetry Phantom,IEC Body Dosimetry Phantom [facility] Work Phone: [facility] Work Phone: CT Abdomen and Pelvis WO con traston 09-30-2024 EXAMINATION: CT ABDOMEN/PELVIS W/O CONTRAST 09/30/2024 05:35 PM CLINICAL HISTORY: diffuse abd pain, worse in upper abd ASSOCIATED DIAGNOSIS: diffuse abd pain, worse in upper abd ORDERING PROVIDER: VARGAS BERG TECHNOLOGISTS NOTE: COMPARISON: US KIDNEY+BLADDER 09/05/2024, 4:04 AM TECHNIQUE: Contiguous axial images were obtained through the abdomen and pelvis from the level of the diaphragmatic domes through the pubic symphysis. MPR sagittal and coronal reconstructions were obtained from the axial data. INTRA-PROCEDURE MEDS: FINDINGS: Included images of the lower thorax: Abnormal consolidative opacities within the right lower lobe compatible with pneumonia. Enlargement of the partially visualized heart. Cardiomegaly. Hepatobiliary: Nodular hepatic surface contour suggesting underlying liver disease such as cirrhosis. No focal hepatic abnormality. Unremarkable gallbladder given the ascites. No biliary dilatation. Pancreas: Unremarkable unenhanced appearance given the limited visualization. Spleen: Unremarkable unenhanced appearance. Adrenal Glands: Unremarkable unenhanced appearance. Kidneys, ureters, and bladder: Unremarkable unenhanced appearance of the kidneys. No urolithiasis. No hydroureteronephrosis . Limited assessment of the urinary bladder due to limited distention. Abdominal and pelvic vasculature: Unremarkable GI tract: No evidence of obstruction. The appendix is unremarkable given the ascites. Peritoneum and retroperitoneum: Moderate to large volume ascites within a perihepatic and perisplenic distribution tracking along the paracolic gutters into the pelvis associated with generalized mesenteric edema. No loculation of the ascitic fluid is noted. There is no pneumoperitoneum. The overall volume of the ascites is probably increased compared to the previous study of 09/05/2024. Lymph Nodes: No abdominal or pelvic lymphadenopathy. Prostate and seminal vesicles: Unremarkable Visualized musculoskeletal structures: No acute or destructive osseous process. IMPRESSION: 1. Right lower lobe pneumonia. 2. Moderate to large volume ascites increased compared to prior ultrasound examination. 3. No pneumoperitoneum. 4. Findings suggest underlying liver disease. Clinical correlation is recommended. 5. No urolithiasis or obstructive uropathy. 6. Cardiomegaly. MACRO: None I have personally reviewed the images and agree with the resident's interpretation. RADIOLOGY Dariel De Souza MD - 09/30/2024 EXAMINATION: CT ABDOMEN/PELVIS W/O CONTRAST 09/30/2024 05:35 PM CLINICAL HISTORY: diffuse abd pain, worse in upper abd ASSOCIATED DIAGNOSIS: diffuse abd pain, worse in upper abd ORDERING PROVIDER: VARGAS BERG TECHNOLOGISTS NOTE: COMPARISON: US KIDNEY+BLADDER 09/05/2024, 4:04 AM TECHNIQUE: Contiguous axial images were obtained through the abdomen and pelvis from the level of the diaphragmatic domes through the pubic symphysis. MPR sagittal and coronal reconstructions were obtained from the axial data. INTRA-PROCEDURE MEDS: FINDINGS: Included images of the lower thorax: Abnormal consolidative opacities within the right lower lobe compatible with pneumonia. Enlargement of the partially visualized heart. Cardiomegaly. Hepatobiliary: Nodular hepatic surface contour suggesting underlying liver disease such as cirrhosis. No focal hepatic abnormality. Unremarkable gallbladder given the ascites. No biliary dilatation. Pancreas: Unremarkable unenhanced appearance given the limited visualization. Spleen: Unremarkable unenhanced appearance. Adrenal Glands: Unremarkable unenhanced appearance. Kidneys, ureters, and bladder: Unremarkable unenhanced appearance of the kidneys. No urolithiasis. No hydroureteronephrosis . Limited assessment of the urinary bladder due to limited distention. Abdominal and pelvic vasculature: Unremarkable GI tract: No evidence of obstruction. The appendix is unremarkable given the ascites. Peritoneum and retroperitoneum: Moderate to large volume ascites within a perihepatic and perisplenic distribution tracking along the paracolic gutters into the pelvis associated with generalized mesenteric edema. No loculation of the ascitic fluid is noted. There is no pneumoperitoneum. The overall volume of the ascites is probably increased compared to the previous study of 09/05/2024. Lymph Nodes: No abdominal or pelvic lymphadenopathy. Prostate and seminal vesicles: Unremarkable Visualized musculoskeletal structures: No acute or destructive osseous process. IMPRESSION: 1. Right lower lobe pneumonia. 2. Moderate to large volume ascites increased compared to prior ultrasound examination. 3. No pneumoperitoneum. 4. Findings suggest underlying liver disease. Clinical correlation is recommended. 5. No urolithiasis or obstructive uropathy. 6. Cardiomegaly. MACRO: None I have personally reviewed the images and agree with the resident's interpretation. [facility] Radiology Study observation (narrative) [facility] ED Noteson 09-30-2024 Manager Women Authentication Interface Message Text Pt refuses to swallow whole pills. Attempted with pudding and water. Pill then crushed and pt refused to take more than half Normal [facility] Manager Women Authentication Interface Message Text notified of critical lactate value of 4.3 read back critical results. No New orders Normal [facility] Manager Women Authentication Interface Message Text DR. BERG NOTIFIED OF CRITICAL LACTATE LEVEL OF 5.0. ORDERS FOLLOWED. Normal [facility] ED Provider Noteson 10-01-19 Manager Women Authentication Interface Message Text Normal [facility] H AND Timo 09-30-2024 Manager Women Authentication Interface Message Text Normal [facility] Manager Women Authentication Interface Message Text Normal The [facility] HEPATIC FUNCTION PANELon Albumin [Mass/Vol] 3.8 g/dL 3.5 - 5.7 g/dL [facility] ALP [Catalytic activity/Vol] 331 U/L High [facility] ALT [Catalytic activity/Vol] 28 U/L [facility] AST [Catalytic activity/Vol] 19 U/L [facility] Bilirubin [Mass/Vol] 5.7 mg/dL High 0.3 - 1 .0 mg/dL [facility] Bilirubin.direct [Mass/Vol] 2.4 mg/dL High 0.03 - 0.18 mg/dL [facility] Interpretation and review of laboratory results Abnormal [facility] Protein [Mass/Vol] 6.5 g/dL 6.0 - 8.3 g/dL [facility] Albumin [Mass/Vol] 3.8 g/dL Normal 3.5-5.7 [facility] Comment on above: Performed By: #### M G, HEPATIC, CH8, LIP ####[facility] [id number] [place] , [id number] ALK 331 IU/L High 34-104 The [facility] Comment on above: Performed By: #### M G, HEPATIC, CH8, LIP ####[facility] [id number] [place], [id number] ALT [Catalytic activity/Vol] 28 U/L Normal 7-52 [facility] Comment on above: Performed By: #### M G, HEPATIC, CH8, LIP ####[facility] [id number] [place], [id number] AST [Catalytic activity/Vol] 19 U/L Normal 13-39 [facility] Comment on above: Performed By: #### M G, HEPATIC, CH8, LIP ####[facility] [id number] [place], [id number] Bilirubin [Mass/Vol] 5.7 mg/dL High 0.3-1.0 [facility] Comment on above: Performed By: #### M G, HEPATIC, CH8, LIP ####[facility] [id number] [place], [id number] Bilirubin.direct [Mass/Vol] 2.40 mg/dL High 0.03-0.18 [facility] Comment on above: Performed By: #### M G, HEPATIC, CH8, LIP ####[facility] [id number] [place], [id number] Protein [Mass/Vol] 6.5 g/dL Normal 6.0-8.3 [facility] Comment on above: Performed By: #### M G, HEPATIC, CH8, LIP ####[facility] [id number] [place], [id number] HIGH SENSITIVITY TROPONIN Io n 09-30-2024 Troponin I.cardiac DL <= 0.01 ng/mL [Mass/Vol] 32 ng/L High NINF - 15 ng/L [facility] HS TROPONIN I 32 ng/L High <=15 [facility] Comment on above: Order Comment: [place] monalisa troponin can result from acute myocardial infarction (coronary etiology) or myocardial injury (non-coronary etiology) - always consider both.Interval test times for ruling out acute coronary syndrome (ACS) are 2 hours.All results are reported in whole numbers representing ng/L. Results obtained by different labs or methods are not comparable.For ruling out ACS, lab values are always used in conjunction with clinical risk assessment (e.g., HEART score*).Interpreting initial value in ruling out ACSLess than 5 ng/L - below lower limit of quantification - essentially rules out ACS if chest pain began more than 3 hours prior to test and assessed risk is low.5 - 49 ng/L - indeterminate - consider repeat value in 2 hours depending on risk assessment.50 ng/L or greater - concern for ACS or myocardial injury.Interpreting delta values in ruling out ACS.Always compare to initial value obtained:Absolute change (rise or fall) of less than 5 ng/L - essentially rules out ACS if assessed clinical risk is low.Absolute change (rise or fall) of 5 - 19 ng/L - indeterminate - consider another repeat value in 2 hours depending on assessed clinical risk.Absolute change (rise or fall) of 20 ng/L or greater - concern for ACS or myocardial injury.Any absolute value of 50 ng/L or greater - concern for ACS or myocardial injury.*When using hsTnI to calculate the HEART score, use the 99% Upper Reference Limit of 15 ng/L as the normal limit (i.e. <=15 ng/L = 0 points, 16-45 ng/L = 1 point, >45 ng/L = 2 points).DispositionIntermediate hsTnI values DO NOT mandate admission to a cardiology or telemetry unit. They need to be interpreted within the clinical context using provider judgement. Performed By: #### H STRP ####[facility] [id number] [address] [place], [id number] Troponin I.cardiac DL <= 0.01 ng/mL [Mass/Vol] 38 ng/L High NINF - 15 ng/L [facility] TROPONIN I 38 ng/L High <=15 [facility] Comment on above: Order Comment: [place] monalisa troponin can result from acute myocardial infarction (coronary etiology) or myocardial injury (non-coronary etiology) - always consider both.Interval test times for ruling out acute coronary syndrome (ACS) are 2 hours.All results are reported in whole numbers representing ng/L. Results obtained by different labs or methods are not comparable.For ruling out ACS, lab values are always used in conjunction with clinical risk assessment (e.g., HEART score*).Interpreting initial value in ruling out ACSLess than 5 ng/L - below lower limit of quantification - essentially rules out ACS if chest pain began more than 3 hours prior to test and assessed risk is low.5 - 49 ng/L - indeterminate - consider repeat value in 2 hours depending on risk assessment.50 ng/L or greater - concern for ACS or myocardial injury.Interpreting delta values in ruling out ACS.Always compare to initial value obtained:Absolute change (rise or fall) of less than 5 ng/L - essentially rules out ACS if assessed clinical risk is low.Absolute change (rise or fall) of 5 - 19 ng/L - indeterminate - consider another repeat value in 2 hours depending on assessed clinical risk.Absolute change (rise or fall) of 20 ng/L or greater - concern for ACS or myocardial injury.Any absolute value of 50 ng/L or greater - concern for ACS or myocardial injury.*When using hsTnI to calculate the HEART score, use the 99% Upper Reference Limit of 15 ng/L as the normal limit (i.e. <=15 ng/L = 0 points, 16-45 ng/L = 1 point, >45 ng/L = 2 points).DispositionIntermediate hsTnI values DO NOT mandate admission to a cardiology or telemetry unit. They need to be interpreted within the clinical context using provider judgement. Performed By: #### H STRP ####[facility] [id number] [address] [place], [place] [address] LACTIC ACIDon 09-30-2024 Interpretation and review of laboratory results Abnormal [facility] Lactate [Moles/Vol] 3.8 mmol/L Critically high 0.5 - 1.6 mmol/L [facility] CR LACT 3.8 mmol/L Critically high 0.5-1.6 [facility] Comment on above: Performed By: #### L ACT ####[facility] [id number] [place], [id number] Interpretation and review of laboratory results Abnormal [facility] Lactate [Moles/Vol] 4.3 mmol/L Critically high 0.5 - 1.6 mmol/L [facility] CR LACT 4.3 mmol/L Critically high 0.5-1.6 [facility] Comment on above: Performed By: #### L ACT ####[facility] [id number] [address] [place], [id number] Interpretation and review of laboratory results Abnormal [facility] Lactate [Moles/Vol] 5 mmol/L Critically high 0.5 - 1.6 mmol/L [facility] CR LACT 5.0 mmol/L Critically high 0.5-1.6 [facility] Comment on above: Performed By: #### L ACT ####[facility] [id number] [place] , [id number] LIPASEon 09-30-2024 Interpretation and review of laboratory results Normal [facility] Lipase [Catalytic activity/Vol] 15 U/L [facility] LIP 15 IU/L Normal 11-82 [facility] Comment on above: Performed By: #### M G, HEPATIC, CH8, LIP ####[facility] [id number] [place], [id number] MAGNESIUMOrdered By: Diana Herring on 09-30-2024 Interpretation and review of laboratory results Normal [facility] Magnesium [Mass/Vol] 2.3 mg/dL 1.9 - 2 .7 mg/dL [facility] MAGNESIUMon 09-30-2024 Magnesium [Mass/Vol] 2.3 mg/dL Normal 1.9-2.7 [facility] Comment on above: Performed By: #### M G, HEPATIC, CH8, LIP ####[facility] [id number] [place] , [id number] PROTHROMBIN TIME AND INRon 0 09-30-2024 INR Coag (PPP) [Relative time] 1.54 {INR} High 0.90 - 1.10 [facility] Interpretation and review of laboratory results Abnormal [facility] PT Coag (PPP) [Time] 18.2 s High [facility] INR Coag (PPP) [Relative time] 1.54 {INR} High 0.90-1.10 [facility] Comment on above: Performed By: #### P T ####[facility] [id number] [place] [place], [id number] PT Coag (PPP) [Time] 18.2 s High 9.4-12.5 [facility] Comment on above: Performed By: #### P T ####[facility] [id number] [place], [id number] Telephone Encounteron 2024 Manager Women Authentication Interface Message Text Normal [facility] Troponin I.cardiac DL <= 0.0 1 ng/mL [Mass/Vol]on 09-30-2024 Interpretation and review of laboratory results Abnormal [facility] Elevated troponin ca n result from acute myocardial infarction (coronary etiology) or myocardial injury (non-coronary etiology) - always consider both. Interval test times for ruling out acute coronary syndrome (ACS) are 2 hours. All results are reported in whole numbers representing ng/L. Results obtained by different labs or methods are not comparable. For ruling out ACS, lab values are always used in conjunction with clinical risk assessment (e.g., HEART score*). Interpreting initial value in ruling out ACS Less than 5 ng/L - below lower limit of quantification - essentially rules out ACS if chest pain began more than 3 hours prior to test and assessed risk is low. 5 - 49 ng/L - indeterminate - consider repeat value in 2 hours depending on risk assessment. 50 ng/L or greater - concern for ACS or myocardial injury. Interpreting delta values in ruling out ACS. Always compare to initial value obtained: Absolute change (rise or fall) of less than 5 ng/L - essentially rules out ACS if assessed clinical risk is low. Absolute change (rise or fall) of 5 - 19 ng/L - indeterminate - consider another repeat value in 2 hours depending on assessed clinical risk. Absolute change (rise or fall) of 20 ng/L or greater - concern for ACS or myocardial injury. Any absolute value of 50 ng/L or greater - concern for ACS or myocardial injury. *When using hsTnI to calculate the HEART score, use the 99% Upper Reference Limit of 15 ng/L as the normal limit (i.e. <=15 ng/L = 0 points, 16-45 ng/L = 1 point, >45 ng/L = 2 points). Disposition Intermediate hsTnI values DO NOT mandate admission to a cardiology or telemetry unit. They need to be interpreted within the clinical context using provider judgement. [facility] Interpretation and review of laboratory results Abnormal [facility] Elevated troponin ca n result from acute myocardial infarction (coronary etiology) or myocardial injury (non-coronary etiology) - always consider both. Interval test times for ruling out acute coronary syndrome (ACS) are 2 hours. All results are reported in whole numbers representing ng/L. Results obtained by different labs or methods are not comparable. For ruling out ACS, lab values are always used in conjunction with clinical risk assessment (e.g., HEART score*). Interpreting initial value in ruling out ACS Less than 5 ng/L - below lower limit of quantification - essentially rules out ACS if chest pain began more than 3 hours prior to test and assessed risk is low. 5 - 49 ng/L - indeterminate - consider repeat value in 2 hours depending on risk assessment. 50 ng/L or greater - concern for ACS or myocardial injury. Interpreting delta values in ruling out ACS. Always compare to initial value obtained: Absolute change (rise or fall) of less than 5 ng/L - essentially rules out ACS if assessed clinical risk is low. Absolute change (rise or fall) of 5 - 19 ng/L - indeterminate - consider another repeat value in 2 hours depending on assessed clinical risk. Absolute change (rise or fall) of 20 ng/L or greater - concern for ACS or myocardial injury. Any absolute value of 50 ng/L or greater - concern for ACS or myocardial injury. *When using hsTnI to calculate the HEART score, use the 99% Upper Reference Limit of 15 ng/L as the normal limit (i.e. <=15 ng/L = 0 points, 16-45 ng/L = 1 point, >45 ng/L = 2 points). Disposition Intermediate hsTnI values DO NOT mandate admission to a cardiology or telemetry unit. They need to be interpreted within the clinical context using provider judgement. [facility] X[facility] CHEST AP OR PA 1 VIEWon 0 09-30-2024 XR CHEST AP OR PA 1 VIEW Normal [facility] XR Chest Single viewon 09-30 EXAMINATION: XR CHES T AP OR PA 1 VIEW 09/30/2024 05:45 PM CLINICAL HISTORY: Chest Pain ASSOCIATED DIAGNOSIS: Chest Pain ORDERING PROVIDER: VARGAS BERG TECHNOLOGISTS NOTE: COMPARISON: XR CHEST AP OR PA 1 VIEW 09/04/2024, 1:20 PM FINDINGS: Lines, tubes, and devices: None. Lungs and pleura: No new focal pulmonary consolidation, effusion or pneumothorax. Cardiomediastinal silhouette: The cardiomediastinal silhouette is prominent in size and likely exaggerated by AP technique. Musculoskeletal: Unremarkable. IMPRESSION: Enlargement of the cardiopericardial silhouette without large new focal consolidation, sizable pneumothorax or pleural effusion. Limited exam. MACRO: None RADIOLOGY Vanessa Pyle MD - 09/30/2024 EXAMINATION: XR CHEST AP OR PA 1 VIEW 09/30/2024 05:45 PM CLINICAL HISTORY: Chest Pain ASSOCIATED DIAGNOSIS: Chest Pain ORDERING PROVIDER: VARGAS BERG TECHNGAVIN NOTE: COMPARISON: XR CHEST AP OR PA 1 VIEW 09/04/2024, 1:20 PM FINDINGS: Lines, tubes, and devices: None. Lungs and pleura: No new focal pulmonary consolidation, effusion or pneumothorax. Cardiomediastinal silhouette: The cardiomediastinal silhouette is prominent in size and likely exaggerated by AP technique. Musculoskeletal: Unremarkable. IMPRESSION: Enlargement of the cardiopericardial silhouette without large new focal consolidation, sizable pneumothorax or pleural effusion. Limited exam. MACRO: None [facility] Radiology Study observation (narrative) [facility] XR Chest Single viewOrdered By: Vanessa Pyle on 09-30-2024 [facility] Work Phone: C BLOODon 09-23-2024 C BLOOD [facility] [address] [place] [phone] Name: CARLO MEDINA : 1980 Admitting SABINE LANGFORD MD Provider: Gender Male Financial [id number] : Number: Locatio EDTU; [id number]; 01 n: Admit 09/17/2024 Date: Discharge 09/19/2024 Microbiology Date: PROCEDURE: C BLOOD [] SOURCE: Blood BODY SITE: COLLECTED DATE/TIME: 09/17/2024 20:22 EDT RECEIVED DATE/TIME: 09/17/2024 20:45 EDT START DATE/TIME: 09/17/2024 20:45 EDT FREE TEXT SOURCE: ORDERING PHYSICIAN: SABINE LANGFORD MD FINAL REPORTS Final Report [] Verified Date/Time: 09/23/2024 00:00 EDT No growth after 5 days. ____ L=Low, H= High, *= Abnormal, C=Critical, f=Footnote, c=Corrected, i=Interp Data Name: CARLO MEDINA Print 09/23/2024 00:00 EDT Date/Time: Normal [facility] Comment on above: Performed By: #### 1 [id number], [id number], [id number] #### [facility] [address] [place] [address] Cuff Cutter: Woody Leyva MD C BLOOD [facility] [address] [place] [address] [phone] Name: CARLO MEDINA : 1980 Admitting SABINE LANGFORD MD Provider: Gender Male Financial [id number] : Number: Locatio EDTU; [id number]; 01 n: Admit 09/17/2024 Date: Discharge 09/19/2024 Microbiology Date: PROCEDURE: C BLOOD [] SOURCE: Blood BODY SITE: COLLECTED DATE/TIME: 09/17/2024 20:22 EDT RECEIVED DATE/TIME: 09/17/2024 20:45 EDT START DATE/TIME: 09/17/2024 20:46 EDT FREE TEXT SOURCE: ORDERING PHYSICIAN: SABINE LANGFORD MD FINAL REPORTS Final Report [] Verified Date/Time: 09/23/2024 00:00 EDT No growth after 5 days. ____ L=Low, H= High, *= Abnormal, C=Critical, f=Footnote, c=Corrected, i=Interp Data Name: CARLO MEDINA Print 09/23/2024 00:00 EDT Date/Time: Normal [facility] Comment on above: Performed By: #### 1 , [id number], [id number] #### [facility] [address] [place] [address] Cuff Cutter: Woody Leyva MD AUTO DIFFon 09-19-2024 Baso Count 0.05 x1000 Normal 0.00-0.20 [facility] Comment on above: Performed By: #### 1 , [id number], [id number] #### [facility] [address] [place], [place] [id number] Cuff Cutter: Woody Leyva MD Basos % 0.6 % Normal [facility] Comment on above: Performed By: #### 1 , 510106, [id number] #### [facility] [address] [place], [place] [id number] Cuff Cutter: Woody Leyva MD Eos Count 0.05 x1000 Normal 0.00-0.50 [facility] Comment on above: Performed By: #### 1 , [id number], [id number] #### [facility] [address] [place], [place] [id number] Cuff Cutter: Woody Leyva MD Eosinophils/100 WBC (Bld) 0.6 % Normal [facility] Comment on above: Performed By: #### 1 78270, [id number], [id number] #### [facility] [address] [place] [address] Cuff Cutter: Woody Leyva MD Lymph Count 2.08 x1000 Normal 1.20-4.80 [facility] Comment on above: Performed By: #### 1 59962, 354149, [id number] #### [facility] [address] [place] [address] Cuff Cutter: Woody Leyva MD Lymphocytes/100 WBC (Bld) 26.8 % Normal [facility] Comment on above: Performed By: #### 1 91436, 798299, [id number] #### [facility] [address] [place] [address] Cuff Cutter: Woody Leyva MD Uvalde Count 0.74 x1000 Normal 0.10-1.00 [facility] Comment on above: Performed By: #### 1 19043, 343058, [id number] #### [facility] [address] [place] [address] Cuff Cutter: Woody Leyva MD Monocytes/100 WBC (Bld) 9.4 % Normal [facility] Comment on above: Performed By: #### 1 34882, 175659, [id number] #### [facility] [address] [place] [address] Cuff Cutter: Woody Leyva MD Neutrophil Count (ANC) 4.87 x1000 Normal 1.40-8.80 [facility] Comment on above: Performed By: #### 1 61689, 786062, [id number] #### [facility] [address] [place] [address] Cuff Cutter: Woody Leyva MD Neutrophils/100 WBC (Bld) 62.5 % Normal [facility] Comment on above: Performed By: #### 1 40747, 171228, [id number] #### [facility] [address] [place] [address] Cuff Cutter: Woody Leyva MD COMPMETAon 09-19-2024 Albumin [Mass/Vol] 3.0 g/dL Low 3.4-5.0 [facility] Comment on above: Performed By: #### 1 82822, 686674, [id number] #### [facility] [address] [place] [address] Cuff Cutter: Woody Leyva MD Albumin/Globulin [Mass ratio] 0.9 {ratio} Normal [facility] Comment on above: Performed By: #### 1 , [id number], [id number] #### [facility] [address] [place], [place] [id number] Cuff Cutter: Woody Leyva MD Alk Phos 276 unit/L High 45-117 [facility] Comment on above: Performed By: #### 1 10356, 385351, [id number] #### [facility] [address] [place] [address] Cuff Cutter: Woody Leyva MD Bilirubin [Mass/Vol] 2.90 mg/dL High 0.30-1.20 [facility] Comment on above: Result Comment: Use of this assay is not recommended for patients undergoing treatment with eltrombopag due to the potential for falsely elevated results. Performed By: #### 1 55098, 158781, [id number] #### [facility] [address] [place] [address] Cuff Cutter: Woody Leyva MD Calcium [Mass/Vol] 9.0 mg/dL Normal 8.7-10.4 [facility] Comment on above: Performed By: #### 1 63349, 493703, [id number] #### [facility] [address] [place] [address] Cuff Cutter: Woody Leyva MD Chloride [Moles/Vol] 100 mmol/L Normal 98-107 [facility] Comment on above: Performed By: #### 1 39928, 345235, [id number] #### [facility] [address] [place] [address] Cuff Cutter: Woody Leyva MD CO2 [Moles/Vol] 26.0 mmol/L Normal 20.0-31.0 [facility] Comment on above: Performed By: #### 1 14560, 310231, [id number] #### [facility] [address] [place] [address] Cuff Cutter: Woody Leyva MD Creatinine [Mass/Vol] 2.3 mg/dL High 0.6-1.1 [facility] Comment on above: Performed By: #### 1 08371, 101436, [id number] #### [facility] [address] [place] [address] Cuff Cutter: Woody Leyva MD GFR AA 37 [facility] Comment on above: Result Comment: Afri can Dutch GFR Calc Medical judgement is necessary to interpret GFR. The calculated GFR may not accurately reflect renal status in patients >70 years, women, acutely ill hospitalized patients and patients with acute renal failure or known renal disease. The MDRD GFR formula is valid only for adults greater than 18 years of age. Note: Creatinine clearance (not GFR) should be used for drug dosing. Performed By: #### 1 41771, 824239, [id number] #### [facility] [address] [place] [address] Cuff Cutter: Woody Leyva MD Globulin (S) [Mass/Vol] 3.2 g/dL [facility] Comment on above: Performed By: #### 1 70439, 562065, [id number] #### [facility] [address] [place] [address] Cuff Cutter: Woody Leyva MD Glomerular Filtration Rate 31 mL/min/1.73m? [facility] Comment on above: Result Comment: Non- GFR Calc Medical judgement is necessary to interpret GFR. The calculated GFR may not accurately reflect renal status in patients >70 years, women, acutely ill hospitalized patients and patients with acute renal failure or known renal disease. The MDRD GFR formula is valid only for adults greater than 18 years of age. Note: Creatinine clearance (not GFR) should be used for drug dosing. Performed By: #### 1 55891, 313930, [id number] #### [facility] [address] [place] [address] Cuff Cutter: Woody Leyva MD Glucose [Mass/Vol] 117 mg/dL High 74-106 [facility] Comment on above: Performed By: #### 1 96211, 172785, [id number] #### [facility] [address] [place] [address] Cuff Cutter: Woody Leyva MD GOT 34 unit/L Normal 15-37 [facility] Comment on above: Performed By: #### 1 , 355413, [id number] #### [facility] [address] [place] [address] Cuff Cutter: Woody Leyva MD GPT 47 unit/L Normal 10-49 [facility] Comment on above: Performed By: #### 1 28527, 667190, [id number] #### [facility] [address] [place] [address] Cuff Cutter: Woody Leyva MD Osmolality [Osmolality] 292 mosm/kg Normal 275-295 [facility] Comment on above: Performed By: #### 1 27834, 592441, [id number] #### [facility] [address] [place] [address] Cuff Cutter: Woody Leyva MD Potassium [Moles/Vol] 3.7 mmol/L Normal 3.5-5.1 [facility] Comment on above: Performed By: #### 1 62630, 134415, [id number] #### [facility] [address] [place] [address] Cuff Cutter: Woody Leyva MD Protein [Mass/Vol] 6.2 g/dL Normal 5.7-8.2 [facility] Comment on above: Result Comment: Tota l Protein results may be increased in patients receiving dextran as a blood volume food selector Performed By: #### 1 81979, 495440, [id number] #### [facility] [address] [place] [address] Cuff Cutter: Woody Leyva MD Sodium [Moles/Vol] 139 mmol/L Normal 135-145 [facility] Comment on above: Performed By: #### 1 88550, 128979, [id number] #### [facility] [address] [place] [address] Cuff Cutter: Woody Leyva MD Urea nitrogen [Mass/Vol] 50 mg/dL High 9-23 [facility] Comment on above: Result Comment: - Ve nipuncture should occur prior to N-Acetyl Cysteine (NAC) or Metamizole (Sulpyrine) administration due to the potential for falsely depressed results. - Blood samples from some patients with monoclonal gammopathies may produce falsely elevated results Performed By: #### 1 93357, 726241, [id number] #### [facility] [address] [place] [address] Cuff Cutter: Woody Leyva MD Urea nitrogen/Creatinine [Mass ratio] 21.7 mg/mg Normal [facility] Comment on above: Performed By: #### 1 [id number], [id number], [id number] #### [facility] [address] [place] [address] Cuff Cutter: Woody Leyva MD Consult Reporton 09-19-2024 Consult Report Patient: CARLO MEDINA Age: 44 years Sex: Male : 1980 Associated Diagnoses: None Author: JOSE BOSTON[facility] Consult Note IMPRESSION: Chronic heart failure unknown EF Cardiomyopathy unknown EF likely reduced left bundle branch block chronic kidney disease paroxysmal atrial fibrillation on Eliquis hypertension PLAN: Patient has been in 3 or 4 different hospitals in the last few months. Gentle diuresis while inpatient Advised him to follow-up with the regular radar engineer. Will try to obtain records however patient has been in many different hospitals recently. With avoid further inpatient cardiac testing until records are available can be discharged from cardiac standpoint 44-year-old unclear past medical history, hypertension, presents with shortness of breath. Noted patient has been in several different hospital systems during the last few month. No records available. He has a bundle branch block, cardiomegaly on chest x-ray. He is in sinus rhythm. Currently he is laying flat without orthopnea. Vitals are stable. Appears to be euvolemic on exam. Denies chest pain palpitation lightheadedness. Home Medications (5) Active bumetanide 1 mg oral tablet 1 mg = 1 tabs, ORAL, BID Eliquis 5 mg oral tablet 5 mg = 1 tabs, ORAL, BID folic acid 1 mg oral tablet 1 mg = 1 tabs, ORAL, DAILY hydrALAZINE 100 mg oral tablet 100 mg = 1 tabs, ORAL, BID isosorbide dinitrate 20 mg oral tablet 20 mg = 1 tabs, ORAL, TID Medications (14) Active Scheduled: (6) APIXABAN 5MG TAB 5 mg 1 tabs, ORAL, BID BUMETANIDE 1MG TAB 1 mg 1 tabs, ORAL, BIDAC FOLIC ACID 1MG TABLET 1 mg 1 tabs, ORAL, DAILY HydrALAZINE 50MG TABLET 100 mg 2 tabs, ORAL, BID ISOSORBIDE DINITRATE 20MG TABLET 20 mg 1 tabs, ORAL, TID SODIUM CHLORIDE SYR/VIAL 10ML 3 mL, IV Push, [id number] Continuous: (0) PRN: (8) ACETAMINOPHEN 325 MG TAB 650 mg 2 tabs, ORAL, [id number] ACETAMINOPHEN 325 MG TAB 650 mg 2 tabs, ORAL, [id number] ACETAMINOPHEN 325 MG TAB 650 mg 2 tabs, ORAL, [id number] MELATONIN 5MG TAB 5 mg 1 tabs, ORAL, [id number]/[id number] NALOXONE 0.4MG/1ML INJ 0.4 mg 1 mL, IV Push, PRN ONDANSETRON=ZOFRAN INJ 4 mg 2 mL, IV Push, [id number] SODIUM CHLORIDE SYR/VIAL 10ML 3 mL, IV Push, PRN TramADOL 50MG TABLET 50 mg 1 tabs, ORAL, [id number] Allergies (1) Active Severity Reaction No Known Medication Allergies None Documented Review of Systems: As per HPI, all other systems reviewed and negative Cardiac History: As above Past Medical History: As above Surgical History: Reviewed Social History: History Tobacco:Denies Tobacco Use Performed Date Time:09/18/2024 Alcohol:Denies Alcohol Use Performed Date Time:09/18/2024 Substance abuse:Denies Substance Abuse Performed Date Time:09/18/2024 Family History: No qualifying data available. PHYSICAL EXAM: Vital Signs (last 24 hrs) Last Charted Temp Oral 36.4 degC (SEP 19 10:27) Heart Rate Peripheral H 104 bpm (SEP 19 10:31) Resp Rate 18 br/min (SEP 18 19:00) SBP 103 mmHg (SEP 19 10:29) DBP 76 mmHg (SEP 19 10:29) BMI 21.04 (SEP 18 11:30) General: Awake alert oriented not in acute distress. Neck: No JVD. no carotid bruit no neck stiffness CV: RRR normal S1-S2,systolic murmur, no gallop. PMI not displaced Lungs: Good bilateral air entry, clear to auscultation. No crackles no wheezing. Abdomen: Soft bowel sounds positive nontender nondistended. No organomegaly. Extremities: Peripheral pulse positive throughout. No lower extremity edema. No clubbing no cyanosis. Neuro: Cranial nerves grossly intact. No focal deficit. I/O's and DAILY WEIGHTS Default ECG/Telemetry: NSR with no acute ischemic changes Radiology: CXR without infiltrate or effusion LABS: Labs (Last four charted values) WBC 7.8 (SEP 19) 5.0 (SEP 18) 7.5 (SEP 17) Hgb 13.6 (SEP 19) 13.6 (SEP 18) 15.1 (SEP 17) Hct L 40.1 (SEP 19) L 40.8 (SEP 18) 46.5 (SEP 17) Plt 186 (SEP 19) 179 (SEP 18) 236 (SEP 17) Na 139 (SEP 19) 140 (SEP 18) 141 (SEP 17) K 3.7 (SEP 19) 3.6 (SEP 18) 3.6 (SEP 17) CO2 26.0 (SEP 19) 26.0 (SEP 18) 25.0 (SEP 17) Cl 100 (SEP 19) 100 (SEP 18) 100 (SEP 17) Cr H 2.3 (SEP 19) H 2.1 (SEP 18) H 2.0 (SEP 17) BUN H 50 (SEP 19) H 45 (SEP 18) H 43 (SEP 17) Glucose Random H 117 (SEP 19) H 175 (SEP 18) 99 (SEP 17) Mg 2.2 (SEP 17) Ca 9.0 (SEP 19) 9.1 (SEP 18) 9.3 (SEP 17) INR 1.4 (SEP 18) Lipids No qualifying data available. BNP No qualifying data available. Normal [facility] HEMOon 09-19-2024 DIFF? No Normal [facility] Comment on above: Performed By: #### 1 [id number], [id number], [id number] #### [facility] [address] [place] [address] Cuff Cutter: Woody Leyva MD Erythrocyte distribution width (RBC) [Ratio] 14.0 % Normal 11.5-14.5 [facility] Comment on above: Performed By: #### 1 26915, [id number], [id number] #### [facility] [address] [place] [address] Cuff Cutter: Woody Leyva MD Hematocrit (Bld) [Volume fraction] 40.1 % Low 41.0-52.0 [facility] Comment on above: Performed By: #### 1 [id number], [id number], [id number] #### [facility] [address] [place] [address] Cuff Cutter: Woody Leyva MD Hemoglobin (Bld) [Mass/Vol] 13.6 g/dL Normal 13.5-17.5 [facility] Comment on above: Performed By: #### 1 24876, [id number], [id number] #### [facility] [address] [place] [address] 80471 Cuff Cutter: Woody Leyva MD Instr WBC 7.8 Normal [facility] Comment on above: Performed By: #### 1 23784, [id number], [id number] #### [facility] [address] [place] [address] 35993 Cuff Cutter: Woody Leyva MD MCH (RBC) [Entitic mass] 34.6 pg High 27.0-34.0 [facility] Comment on above: Performed By: #### 1 , [id number], [id number] #### [facility] [address] [place] [address] 74957 Cuff Cutter: Woody Leyva MD MCHC (RBC) [Mass/Vol] 33.8 g/dL Normal 32.0-37.0 [facility] Comment on above: Performed By: #### 1 , [id number], [id number] #### [facility] [address] [place] [address] 83015 Cuff Cutter: Woody Leyva MD MCV (RBC) [Entitic vol] 102.2 fL High 80.0-100.0 [facility] Comment on above: Performed By: #### 1 , [id number], [id number] #### [facility] [address] [place] [address] 55290 Cuff Cutter: Woody Leyva MD Nucleated RBC 0 /100WBC [facility] Comment on above: Performed By: #### 1 12438, [id number], [id number] #### [facility] [address] [place] [address] 05740 Cuff Cutter: Woody Leyva MD Platelet 186 x10 Normal 150-450 [facility] Comment on above: Performed By: #### 1 57418, 218380, [id number] #### [facility] [address] [place] [address] Cuff Cutter: Woody Leyva MD Platelet mean volume (Bld) [Entitic vol] 8.5 fL Normal 7.4-10.4 [facility] Comment on above: Performed By: #### 1 81791, 731145, [id number] #### [facility] [address] [place] [address] 84644 Cuff Cutter: Woody Leyva MD RBC 3.92 x10 Low 4.70-6.10 [facility] Comment on above: Result Comment: Note : RBC morphology is normal unless otherwise stated. Evaluation performed only if differential is requested. Performed By: #### 1 82588, [id number], [id number] #### [facility] [address] [place] [address] 81950 Cuff Cutter: Woody Leyva MD WBC 7.8 x10 Normal 4.5-11.0 [facility] Comment on above: Performed By: #### 1 60522, 401422, [id number] #### [facility] [address] [place] [address] 93990 Cuff Cutter: Woody Leyva MD Inpatient Patient Summaryon 09-19-2024 Inpatient Patient Summary [facility] Discharge Instructions [address] [place] [address] [id number] (Patient Copy) Name: CARLO MEDINA : 1980 Diagnosis: 1:Chest pain; 2:Vomiting; 3:Lactic acidosis Allergies: No Known Medication Allergies Registration Date: 09/17/24 Current Date Time: 09/19/2024 11:12:08 Address: [place] [address] Primary Care Provider: Name: SHARI HIGGINS Phone: [phone] Thank you for choosing [facility] for your care. You are very important to us. Our goal is to demonstrate our high quality medical care and provide you with a very good patient experience. You may receive a survey about our service. Please take the time to complete the survey and return it so we can continue to enhance our service. Thank you again for allowing [facility] to care for your medical needs. If you have any questions about your care or follow up information please contact your doctor. Follow-up Instructions The following Appointments have been made for you: Please Note: the first letters listed in the order is the location code, followed by the appointment date, and scheduled provider Future Appointments No Future Appointments Scheduled Provider Follow Ups: With: Address: When: GIOVANI GARCIA, Cardiology [address] [place] [address] Business (1) Within 5 to 7 days Comments: Call 911 with signs/symptoms of Stroke. Call 911 with symptoms of Chest Pain. Call Dr if you have Shortness of Breath. This is a radar engineer here at [facility] that seen you in the ED Holds area. If you would like to use this radar engineer and his group, please give them a call for a follow-up appoint within 5-7 days OR you can find a radar engineer closer to home of you choice or one that is on your insurance. Thank You With: Address: When: Please follow-up with your Primary Care Dr and establish a Bending Shed Worker of your choice. One will be provided below if you need a radar engineer here at [facility] With: Address: When: SHARI HIGGINS [address] [place] [address] [place], [place] [phone] Business (1) Within Call for Appointment If you have had an intravenous catheter (IV) during your stay, keep the dressing dry and do not remove it from the site for at least 24 hours or as instructed by your provider to prevent problems. Medication Information Only Take The Medicines On This List. Keep This List and Bring It To Your Next Appointment. Medicines To Take At Home: Medicine Name (Generic Name) Amount to Take How to Take it How Often to Take it Additional Instructions Next Dose Due Eliquis 5 mg oral tablet (apixaban) 5 mg By Mouth TWICE A DAY To prevent or treat blood clots bumetanide 1 mg oral tablet (bumetanide = bumex) 1 mg By Mouth TWICE A DAY folic acid 1 mg oral tablet (folic acid) 1 mg By Mouth DAILY hydrALAZINE 100 mg oral tablet (hydralazine = apresoline) 100 mg By Mouth TWICE A DAY isosorbide dinitrate 20 mg oral tablet (isosorbide dinitrate) 20 mg By Mouth THREE TIMES A DAY Understanding your home medicine is important to keeping you healthy. If you are taking medications that are not on the preceding list, please call your doctor to see if you are to continue taking that medication. It is important that you do not skip or make up doses. If you are ordered an antibiotic, finish taking all the medicine unless your doctor tells you otherwise. Call your doctor if you have any questions or problems. Take the medicine list with you to all follow up appointments. Patient education materials, if any, will display below Nausea and Vomiting: Care Instructions Overview When you are nauseated, you may feel weak and sweaty and notice a lot of saliva in your mouth. Nausea often leads to vomiting. Most of the time you do not need to worry about nausea and vomiting, but they can be signs of other illnesses. Two common causes of nausea and vomiting are a stomach infection and food poisoning. Nausea and vomiting from a viral stomach infection will usually start to improve within 24 hours. Nausea and vomiting from food poisoning may last from 12 to 48 hours. The doctor has checked you carefully, but problems can develop later. If you notice any problems or new symptoms, get medical treatment right away. Follow-up care is a reardon part of your treatment and safety. Be sure to make and go to all appointments, and call your doctor if you are having problems. It's also a good idea to know your test results and keep a list of the medicines you take. How can you care for yourself at home? ? To prevent dehydration, drink plenty of fluids. Choose water and other clear liquids until you feel better. If you have kidney, heart, or liver disease and have to limit fluids, talk with your doctor before you increase the amount of fluids you drink. ? Rest in bed until you (more content not included)... Normal [facility] [employer] Detailson 2024 [employer] Details [employer] Details Entered On: 09/19/2024 0:18 EDT Performed On: 09/19/2024 0:17 EDT by Berenice Reeder RN [employer] Details Transport Mode Order Detail EV : Wheelchair Isolation Precautions RTF : Consult Physician, 09/18/2024 17:32:00 EDT, JOVANNY BOSTON, JENNIFER, Run of [place], HR 150s- Asymptomatic episode, Completed Communication CONSTANT Order, 09/18/2024 09:58:00 EDT, Constant Order, STAT EKG for Chest Pain, STAT ABGs for Acute Respiratory Distress, STAT Potassium/Magnesium for any significant change in condition/rhythm, Ordered Communication CONSTANT Order, 09/18/2024 09:58:00 EDT, Constant Order, Current ACLS Provider may, Initiate [employer] Advanced Cardiac Life support Algorithm per patient code status, Ordered Oxygen Therapy, 09/18/2024 09:58:00 EDT, Nasal Cannula, Constant Order, Dyspnea with Dx COPD, 2-5 L NC PRN (if pt has COPD, oxygen at 2 L NC), Ordered Reason VTE Prophylaxis Not Received, 09/18/2024 09:58:00 EDT, Patient is ambulatory, Ordered Possible Sepsis, 09/18/2024 04:19:29 EDT, 09/18/2024 04:19:29 EDT, Completed Level of Care Order, 09/18/2024 00:07:00 EDT, Observation Outpatient with Observation Services, 1DOU, ANGELIA KERR, REAGAN, Chest discomfort, lactic acidosis, generalized fatigue, Ordered Transfer Care of Patient to Attending, 09/18/2024 00:07:00 EDT, Upon discharge from the ED, all continued medications and orders become the responsibility of the admitting/attending physician., Ordered Misc Nutrition Task to Nursing, 09/17/2024 18:16:00 EDT, Constant Order, NPO, Ordered Isolation Precaution Order Detail EV : NONE IV Order Detail - EV : No Oxygen Order Detail EV : No Order Detail EV : No Pacemaker Order Detail : 0 [employer] Details Review Status : Reviewed, no changes Nurse Collects Blood Specimens : No Berenice Reeder RN - 09/19/2024 0:17 EDT Normal [facility] Comment on above: Order Comment: Order entered secondary to admission Progress Note-Physicianon Progress Note-Physician Patient: CARLO MEDINA Age: 44 years Sex: Male : 1980 Associated Diagnoses: None Author: REAGAN GALAN DO Basic Information SVT Is a 44-year-old who yesterday was going to be discharged he had tachycardia what look like V. tach I asked that we hold his discharge Until evaluated by cardiology and also to get a twelve-lead EKG continue with monitoring on telemetry Review of Systems Constitutional: Weakness, Decreased activity. Respiratory: Negative. Cardiovascular: Tachycardia. Gastrointestinal: Negative. All other systems are negative Health Status Allergies: Allergies (1) Active Severity Reaction No Known Medication Allergies None Documented Current medications: Medications (14) Active Scheduled: (6) APIXABAN 5MG TAB 5 mg 1 tabs, ORAL, BID BUMETANIDE 1MG TAB 1 mg 1 tabs, ORAL, BIDAC FOLIC ACID 1MG TABLET 1 mg 1 tabs, ORAL, DAILY HydrALAZINE 50MG TABLET 100 mg 2 tabs, ORAL, BID ISOSORBIDE DINITRATE 20MG TABLET 20 mg 1 tabs, ORAL, TID SODIUM CHLORIDE SYR/VIAL 10ML 3 mL, IV Push, [id number] Continuous: (0) PRN: (8) ACETAMINOPHEN 325 MG TAB 650 mg 2 tabs, ORAL, [id number] ACETAMINOPHEN 325 MG TAB 650 mg 2 tabs, ORAL, [id number] ACETAMINOPHEN 325 MG TAB 650 mg 2 tabs, ORAL, [id number] MELATONIN 5MG TAB 5 mg 1 tabs, ORAL, [id number] NALOXONE 0.4MG/1ML INJ 0.4 mg 1 mL, IV Push, PRN ONDANSETRON=ZOFRAN INJ 4 mg 2 mL, IV Push, [id number] SODIUM CHLORIDE SYR/VIAL 10ML 3 mL, IV Push, PRN TramADOL 50MG TABLET 50 mg 1 tabs, ORAL, [id number] Problem list: Active Problems (3) At risk for falls Heart disease Kidney disease Physical Examination VS/Measurements Vital Signs (last 24 hrs) Last Charted Temp Oral 36.4 degC (SEP 19 08:03) Heart Rate Peripheral H 101 bpm (SEP 19 08:04) Resp Rate 18 br/min (SEP 18 19:00) SBP 104 mmHg (SEP 19 08:04) DBP 77 mmHg (SEP 19 08:04) BMI 21.04 (SEP 18 11:30) General: Alert and oriented. Eye: Pupils are equal, round and reactive to light. HENT: Normocephalic, Tympanic membranes are clear. Neck: Supple, Non-tender, No carotid bruit. Respiratory: Lungs are clear to auscultation, Respirations are non-labored. Cardiovascular: Normal rate, Regular rhythm, No murmur. Gastrointestinal: Soft, Non-tender, Non-distended. Genitourinary: No costovertebral angle tenderness. Musculoskeletal: Normal range of motion. Integumentary: Warm, Dry, Intact. Neurologic: Alert, Oriented. Psychiatric: Cooperative. Impression and Plan For now monitor for any temps continue with monitoring the heart rate and the blood pressure tachycardia If evaluated by cardiology and is cleared he will be discharged today Normal [facility] APTTon 09-18-2024 aPTT Coag (Bld) [Time] 31.3 s Normal 26.0-36.0 [facility] Comment on above: Result Comment: APTT Interpretation: This test has not been validated to monitor heparin therapy. APTT test is used as an initial test for suspected bleeding disorder. Anti-Xa UFH test is used to monitor heparin therapy. Performed By: #### 1 [id number], [id number], 686705, [id number], [id number], [id number] #### [facility] [address] [place] [address] 48393 Cuff Cutter: Woody Leyva MD AUTO DIFFon 09-18-2024 Baso Count 0.04 x1000 Normal 0.00-0.20 [facility] Comment on above: Performed By: #### 1 99630, 539404, [id number] #### [facility] [address] [place] [address] 56731 Cuff Cutter: Woody Leyva MD Basos % 0.7 % Normal [facility] Comment on above: Performed By: #### 1 06401, [id number], [id number] #### [facility] [address] [place] [address] Cuff Cutter: Woody Leyva MD Eos Count 0.02 x1000 Normal 0.00-0.50 [facility] Comment on above: Performed By: #### 1 87771, 060693, [id number] #### [facility] [address] [place] [address] 27143 Cuff Cutter: Woody Leyva MD Eosinophils/100 WBC (Bld) 0.4 % Normal [facility] Comment on above: Performed By: #### 1 07067, [id number], [id number] #### [facility] [address] [place] [address] 09778 Cuff Cutter: Woody Leyva MD Lymph Count 1.36 x1000 Normal 1.20-4.80 [facility] Comment on above: Performed By: #### 1 85777, 800607, [id number] #### [facility] [address] [place], [place] [id number] Cuff Cutter: Woody Leyva MD Lymphocytes/100 WBC (Bld) 27.0 % Normal [facility] Comment on above: Performed By: #### 1 , [id number], [id number] #### [facility] [address] [place] [address] 12472 Cuff Cutter: Woody Leyva MD [place] Count 0.35 x1000 Normal 0.10-1.00 [facility] Comment on above: Performed By: #### 1 52277, 609683, [id number] #### [facility] [address] [place], [place] [id number] Cuff Cutter: Woody Leyva MD Monocytes/100 WBC (Bld) 7.0 % Normal [facility] Comment on above: Performed By: #### 1 21506, 346119, [id number] #### [facility] [address] [place] [address] 69802 Cuff Cutter: Woody Leyva MD Neutrophil Count (ANC) 3.26 x1000 Normal 1.40-8.80 [facility] Comment on above: Performed By: #### 1 62324, 388763, [id number] #### [facility] [address] [place] [address] Cuff Cutter: Woody Leyva MD Neutrophils/100 WBC (Bld) 64.9 % Normal [facility] Comment on above: Performed By: #### 1 06569, 135150, [id number] #### [facility] [address] [place], [place] [address] Cuff Cutter: Woody Leyva MD Admission Assessment Adulton 09-18-2024 Admission Assessment Adult Adult Admission Data Entered On: 09/18/2024 15:24 EDT Performed On: 09/18/2024 9:00 EDT by Nicole Manning RN Patient Safety Grid ID Band on and Verified : Yes Nicole Manning RN 09/18/2024 15:21 EDT (As Of: 09/18/2024 15:24:06 EDT) Allergies (Active) No Known Medication Allergies Estimated Onset Date: Unspecified ; Created By: aTlia Morales RN; Reaction Status: Active ; Category: Drug ; Substance: No Known Medication Allergies ; Type: Allergy Subjective Pain Symptoms : No Numeric Pain Scale Acceptable Intensity : 0 = No Pain General Symptoms : None Cardiopulmonary Symptoms : None GI Symptoms : None Abuse/Violence Concerns? : Patient denies Nicole Manning RN 09/18/2024 15:21 EDT Depression Screening Patient able to verbalize? : Yes Feeling Down, Depressed, Hopeless : Not at all Little Interest - Pleasure in Activities : Not at all Initial Depression Screen Score : 0 Depression Screening Score 0 : No IP Pt being evaluated or treated for BH conditions : No Nicole Manning RN 09/18/2024 15:21 EDT Yesenia Coma Eye Opening Response Yesenia : Spontaneously Best Verbal Response [place] : Oriented Best Motor Response [place] : Obeys simple commands [place] Coma Score : 15 Nicole Manning RN 09/18/2024 15:21 EDT Neuro Characteristics of Speech : Clear Orientation : Oriented x 3 Level of Consciousness : Alert Affect / Behavior : Appropriate, Calm, Cooperative Sensory Perception [place] : No impairment Extremity Movement : Equal Gait : Steady Aspiration Risk : None CN VII Facial Expression and Symmetry : Facial movement symmetrical Nicole Manning RN 09/18/2024 15:21 EDT CardioVascular Heart Rhythm : Regular Capillary Refill : Less than 2 seconds Edema : None Nicole Mannign RN 09/18/2024 15:21 EDT Respiratory Respirations : Unlabored Respiratory Pattern Description : Regular Cough : None Nicole Manning RN 09/18/2024 15:21 EDT Musculoskeletal Activity [place] : Walks frequently Mobility Roosevelt : No limitations Ambulatory Devices : None Special Orthopedic Devices : None ADLs : Independent Nicole Manning RN 09/18/2024 15:21 EDT GI Abdomen Description : Symmetric Abdomen Palpation : Soft Passing Flatus : Yes Bowel Movement Last Date Known : Yes Bowel Movement Last Date : 09/17/2024 EDT Nicole Manning RN 09/18/2024 15:21 EDT Bladder Distention : Absent Nicole Manning RN 09/18/2024 15:21 EDT Integumentary Skin Integrity : Intact Skin Temperature : Warm Skin Color : [place] Skin Turgor : Elastic Mucous Membrane Color : [place] Mucous Membrane Description : Dry Skin Description : Dry Nicole Manning RN 09/18/2024 15:21 EDT Education Responsible Learner/s Present : No Data Available Barriers to Learning : None evident TeachBack Methodology : Explanation Nicole Manning RN 09/18/2024 15:21 EDT Notifications PCP notified of your admission? : No Emergency Contact notified of your admission? : No Nicole Manning RN 09/18/2024 15:21 EDT Normal [facility] Comment on above: Order Comment: Order entered secondary to admission Admission History Adulton Admission History Adult Patient History Model Entered On: 09/18/2024 15:25 EDT Performed On: 09/18/2024 15:24 EDT by Nicole Manning RN Info Preferred Verbal : Moroccan Contact Information : girlfriend Preferred Written : Moroccan Currently or : Not Applicable Is patient a dialysis patient? : No Nicole Manning RN 09/18/2024 15:24 EDT Problem List Problem List obtained from : Patient Nicole Mannign RN 09/18/2024 15:24 EDT (As Of: 09/18/2024 15:25:48 EDT) Problems(Active) At risk for falls (SNOMED CT :903493986 ) Name of Problem: At risk for falls ; Recorder: SYSTEM; Confirmation: Confirmed ; Classification: Nursing ; Code: [id number] ; Last Updated: 09/18/2024 00:13 EDT ; Life Cycle Date: 09/18/2024 ; Life Cycle Status: Active ; Vocabulary: SNOMED CT ; Comments: 09/18/2024 0:13 - SYSTEM Problem added automatically by system based on documentation of a admission to the hospital. Heart disease (SNOMED CT :35790764 ) Name of Problem: Heart disease ; Recorder: Nicole Manning RN; Confirmation: Confirmed ; Classification: Medical ; Code: [id number] ; Contributor System: [employer] ; Last Updated: 09/18/2024 11:31 EDT ; Life Cycle Date: 09/18/2024 ; Life Cycle Status: Active ; Responsible Provider: Nicole Manning RN; Vocabulary: SNOMED CT Kidney disease (SNOMED CT :313171457 ) Name of Problem: Kidney disease ; Recorder: Nicole Manning RN; Confirmation: Confirmed ; Classification: Medical ; Code: [id number] ; Contributor System: [employer] ; Last Updated: 09/18/2024 11:31 EDT ; Life Cycle Date: 09/18/2024 ; Life Cycle Status: Active ; Responsible Provider: Nicole Manning RN; Vocabulary: SNOMED CT Diagnoses(Active) chest burning Date: 09/17/2024 ; Diagnosis Type: Reason For Visit ; Confirmation: Confirmed ; Clinical Dx: chest burning ; Classification: Medical ; Clinical Service: Emergency medicine ; Code: PNED ; Probability: 0 ; Diagnosis Code: [id number] Chest pain Date: 09/18/2024 ; Diagnosis Type: Discharge ; Confirmation: Confirmed ; Clinical Dx: Chest pain ; Classification: Medical ; Code: ICD-10-CM ; Probability: 0 ; Diagnosis Code: R07.9 Lactic acidosis Date: 09/18/2024 ; Diagnosis Type: Discharge ; Confirmation: Confirmed ; Clinical Dx: Lactic acidosis ; Classification: Medical ; Code: ICD-10-CM ; Probability: 0 ; Diagnosis Code: E87.20 Vomiting Date: 09/17/2024 ; Diagnosis Type: Reason For Visit ; Confirmation: Confirmed ; Clinical Dx: Vomiting ; Classification: Medical ; Clinical Service: Emergency medicine ; Code: PNED ; Probability: 0 ; Diagnosis Code: [id number] Vomiting Date: 09/18/2024 ; Diagnosis Type: Discharge ; Confirmation: Confirmed ; Clinical Dx: Vomiting ; Classification: Medical ; Code: ICD-10-CM ; Probability: 0 ; Diagnosis Code: R11.10 Procedure History Accept Blood Products if Necessary : Yes Nicole Manning RN - 09/18/2024 15:24 EDT - Procedure History (As Of: 09/18/2024 15:25:48 EDT) Social History Does pt have any alcohol,drugs or tobacco : No Do you consume Alcohol : No Has patient used tobacco in the last 30 days : No Used tobacco products in the last 1 year : No Nicole Manning RN - 09/18/2024 15:24 EDT Social History (As Of: 09/18/2024 15:25:48 EDT) Alcohol: Denies Alcohol Use (Last Updated: 09/18/2024 15:25:27 EDT by Nicole Manning RN ) Tobacco: Denies Tobacco Use (Last Updated: 09/18/2024 15:25:28 EDT by Nicole Manning RN ) Substance Abuse: Denies Substance Abuse (Last Updated: 09/18/2024 15:25:29 EDT by Nicole Manning RN ) Nutrition/Health Impaired nutrition intake > 3 days (NH) : Yes Unintentional weight chge > 15 lbs last 2 months : No Nicole Manning RN - 09/18/2024 15:24 EDT Cultural/Spiritual [facility] Clergy to Visit : No Nicole Manning RN 09/18/2024 15:24 EDT Advance Directive Advanced Directives : No Advance Directive Additional Information : No Nicole Manning RN 09/18/2024 15:24 EDT Infection Screening Travel outside [place] within past 21 days : No Positive COVID test in the last 10 days? : No Exposure to and/or close contact with a person who has a laboratory-confirmed COVID test within the last 48 hours. : No Nicole Manning RN 09/18/2024 15:24 EDT Normal [facility] Comment on above: Order Comment: Order entered secondary to admission Basic Admission Informationo n 09-18-2024 Basic Admission Information Basic Admission Information Entered On: 09/18/2024 11:31 EDT Performed On: 09/18/2024 11:30 EDT by Nicole Manning RN Admission Height/Weight Height/Length Measured : 185 cm(Converted to: 6.07 ft, 72.83 in) Height/Length Dosing : 185 cm(Converted to: 6.07 ft, 72.83 in) Weight Measured : 72.0 kg(Converted to: 158 lb 12 oz, 158.733 lb) Weight Dosing : 72.0 kg(Converted to: 2,539.726 oz, 158.733 lb) BSA Measured : 1.92 BSA Dosing : 1.92 Body Mass Index Measured : 21.04 kg/m2 Body Mass Index Dosing : 21 Weight Measured Type of Scale : Bed Scale (digital) Last Documented Height/Length : Height/Length Dosin cm 09/17/24 18:20:00 Height/Length Estimated: No results available. Height/Length Measured: No results available. Last Documented Weight and Type of Scale Used : Weight Measured Type of Scale: Patient Stated Weight 09/17/24 18:20:00 Weight Measured: No results available. Weight Dosing: No results available. Nicole Manning RN - 09/18/2024 11:30 EDT Belongings Valuables/Belongings Grid Valuables at Bedside Clothes : Other: Cell phone, Hat, T shirt, pants, socks, purple bag Nicole Manning RN - 09/18/2024 11:30 EDT Normal [facility] Comment on above: Order Comment: Order entered secondary to admission COMPMETAon 09-18-2024 GFR Estimated 41 [facility] Comment on above: Result Comment: The GFR is calculated and is Age, Sex and Race adjusted. Performed By: #### 1 54026, [id number], [id number] #### [facility] [address] [place] [address] Cuff Cutter: Woody Leyva MD Albumin [Mass/Vol] 3.0 g/dL Low 3.4-5.0 [facility] Comment on above: Performed By: #### 1 99388, [id number], [id number] #### [facility] [address] [place] [address] Cuff Cutter: Woody Leyva MD Albumin/Globulin [Mass ratio] 0.9 {ratio} Normal [facility] Comment on above: Performed By: #### 1 36150, 725835, [id number] #### [facility] [address] [place] [address] Cuff Cutter: Woody Leyva MD Alk Phos 223 unit/L High 45-117 [facility] Comment on above: Performed By: #### 1 , 656217, [id number] #### [facility] [address] [place] [address] Cuff Cutter: Woody Leyva MD Bilirubin [Mass/Vol] 4.20 mg/dL High 0.30-1.20 [facility] Comment on above: Result Comment: Use of this assay is not recommended for patients undergoing treatment with eltrombopag due to the potential for falsely elevated results. Performed By: #### 1 , 065406, [id number] #### [facility] [address] [place] [address] Cuff Cutter: Woody Leyva MD Calcium [Mass/Vol] 9.1 mg/dL Normal 8.7-10.4 [facility] Comment on above: Performed By: #### 1 , 258388, [id number] #### [facility] [address] [place], [place] [id number] Cuff Cutter: Woody Leyva MD Chloride [Moles/Vol] 100 mmol/L Normal 98-107 [facility] Comment on above: Performed By: #### 1 , 883156, [id number] #### [facility] [address] [place] [address] Cuff Cutter: Woody Leyva MD CO2 [Moles/Vol] 26.0 mmol/L Normal 20.0-31.0 [facility] Comment on above: Performed By: #### 1 , 622192, [id number] #### [facility] [address] [place], [place] [id number] Cuff Cutter: Woody Leyva MD Creatinine [Mass/Vol] 2.1 mg/dL High 0.6-1.1 [facility] Comment on above: Performed By: #### 1 29814, 317487, [id number] #### [facility] [address] [place] [address] Cuff Cutter: Woody Leyva MD GFR AA 41 [facility] Comment on above: Result Comment: Afri can Dutch GFR Calc Medical judgement is necessary to interpret GFR. The calculated GFR may not accurately reflect renal status in patients >70 years, women, acutely ill hospitalized patients and patients with acute renal failure or known renal disease. The MDRD GFR formula is valid only for adults greater than 18 years of age. Note: Creatinine clearance (not GFR) should be used for drug dosing. Performed By: #### 1 37693, 786440, [id number] #### [facility] [address] [place] [address] Cuff Cutter: Woody Leyva MD Globulin (S) [Mass/Vol] 3.2 g/dL [facility] Comment on above: Performed By: #### 1 31405, 165540, [id number] #### [facility] [address] [place] [address] Cuff Cutter: Woody Leyva MD Glomerular Filtration Rate 34 mL/min/1.73m? [facility] Comment on above: Result Comment: Non- GFR Calc Medical judgement is necessary to interpret GFR. The calculated GFR may not accurately reflect renal status in patients >70 years, women, acutely ill hospitalized patients and patients with acute renal failure or known renal disease. The MDRD GFR formula is valid only for adults greater than 18 years of age. Note: Creatinine clearance (not GFR) should be used for drug dosing. Performed By: #### 1 15351, 690051, [id number] #### [facility] [address] [place] [address] Cuff Cutter: Woody Leyva MD Glucose [Mass/Vol] 175 mg/dL High 74-106 [facility] Comment on above: Performed By: #### 1 00423, 340146, 8998535 #### [facility] [address] [place] [address] Cuff Cutter: Woody Leyva MD GOT 28 unit/L Normal 15-37 [facility] Comment on above: Performed By: #### 1 34886, 139263, 0961235 #### [facility] [address] [place] [address] Cuff Cutter: Woody Leyva MD GPT 43 unit/L Normal 10-49 [facility] Comment on above: Performed By: #### 1 06592, 862503, [id number] #### [facility] [address] [place] [address] Cuff Cutter: Woody Leyva MD Osmolality [Osmolality] 295 mosm/kg Normal 275-295 [facility] Comment on above: Performed By: #### 1 40259, 635261, 7553370 #### [facility] [address] [place] [address] Cuff Cutter: Woody Leyva MD Potassium [Moles/Vol] 3.6 mmol/L Normal 3.5-5.1 [facility] Comment on above: Result Comment: Spec imen slightly hemolyzed. Results may be affected. Performed By: #### 1 53671, 657284, [id number] #### [facility] [address] [place] [address] Cuff Cutter: Woody Leyva MD Protein [Mass/Vol] 6.2 g/dL Normal 5.7-8.2 [facility] Comment on above: Result Comment: Tota l Protein results may be increased in patients receiving dextran as a blood volume food selector Performed By: #### 1 49083, 099281, 9165399 #### [facility] [address] [place] [address] Cuff Cutter: Woody Leyva MD Sodium [Moles/Vol] 140 mmol/L Normal 135-145 [facility] Comment on above: Performed By: #### 1 10302, 244849, 8650114 #### [facility] [address] [place] [address] Cuff Cutter: Woody Leyva MD Urea nitrogen [Mass/Vol] 45 mg/dL High 9-23 [facility] Comment on above: Result Comment: - Ve nipuncture should occur prior to N-Acetyl Cysteine (NAC) or Metamizole (Sulpyrine) administration due to the potential for falsely depressed results. - Blood samples from some patients with monoclonal gammopathies may produce falsely elevated results Performed By: #### 1 30672, 552618, 9451917 #### [facility] [address] [place], [place] [id number] Cuff Cutter: Woody Leyva MD Urea nitrogen/Creatinine [Mass ratio] 21.4 mg/mg Normal [facility] Comment on above: Performed By: #### 1 78233, 974406, 6964744 #### [facility] [address] [place] [id number] Cuff Cutter: Woody Leyva MD ED Physician Reporton 2024 ED Physician Report CARLO MEDINA :1980 Registration Date:09/17/2024 Basic Information Time Seen: SABINE LANGFORD MD / 09/17/2024 19:37 Arrival Mode: Walk-In _ History Source: Patient _ _ _ History limitation: None _ History of Present Illness This is a 44 y/o male who presents to the ED for chest burning since Friday. Patient also complains of vomiting, SOB and cough. Patient could not clarify if he had a history of kidney disease. Patient is on Eliquis, denies any fever. Patient stated that he was recently seen at [facility], [place] and was in the hospital last week for his kidneys. Patient does complain of abdominal pain that comes and goes. Patient voices no other complaints. Review of Systems Constitutional symptoms: Negative except as documented in HPI. Skin symptoms: Negative except as documented in HPI. Eye symptoms: Negative except as documented in HPI. ENMT symptoms: Negative except as documented in HPI. Respiratory symptoms: Negative except as documented in HPI. Cardiovascular symptoms: Negative except as documented in HPI. Gastrointestinal symptoms: Negative except as documented in HPI. Genitourinary symptoms: Negative except as documented in HPI. Musculoskeletal symptoms: Negative except as documented in HPI. Psychiatric symptoms: Negative except as documented in HPI. Neurologic symptoms: Negative except as documented in HPI. Additional review of systems information: All other systems reviewed and otherwise negative, Systems negative except as stated in the H&P. Physical Exam Vitals & Measurements Initial: T: 36.5 ?C (Oral) HR: 110 (Peripheral) BP: 91/67 RR: 16 SpO2: 99% Vital Signs: Per nurse's notes. General: Alert Skin: Warm, dry, no rash. Head: Normocephalic, atraumatic. Neck: Supple, trachea midline. Eye: Pupils are equal, round and reactive to light, extraocular movements are intact, normal conjunctiva. Ears, nose, mouth and throat: Tympanic membranes clear, oral mucosa moist. Cardiovascular: Regular rate and rhythm, great systolic murmur on left sternal border. Respiratory: Lungs are clear to auscultation, respirations are non-labored, breath sounds are equal. Chest wall: No tenderness, no deformity. Back: Nontender, normal range of motion, normal alignment. Musculoskeletal: Normal ROM, normal strength, no tenderness, no swelling, no deformity. Gastrointestinal: Soft, nontender, non distended, normal bowel sounds. Lymphatics: No lymphadenopathy. Psychiatric: Cooperative, appropriate mood & affect. Neurological: Alert and oriented to person, place, time, and situation, no focal neurological deficit observed. Medical Decision Making My interpretation of the EKG is unremarkable. My interpretation of the chest x-ray is unremarkable. My interpretation of the blood work is normal for the patient including an elevated creatinine. Patient does have an elevated lactate the cause of which is unclear. Because of the patient is having this chest discomfort along with generalized aches and the lactic acidosis I believe the patient would benefit from close observation overnight repeat labs fluid hydration and management and treatment as needed. I discussed this with the admitting physician and the patient all were in agreement with the management and treatment plan. Reexamination/Reevalu ation Systolic Blood Pressure: 91 mmHg Diastolic Blood Pressure: 67 mmHg Temperature Oral: 36.5 degC Respiratory Rate: 16 br/min SpO2: 99 % Peripheral Pulse Rate: 110 bpm High Discharge/Plan *Discharge Disposition NO DISCHARGE DISPOSITION DOCUMENTED Assessment This Visit Diagnosis 1. Chest pain R07.9 2. Vomiting R11.10 3. Lactic acidosis E87.20 Orders: sodium chloride(Saline Flush), 3 mL, IV Push, [id number] sodium chloride(Saline Flush), 3 mL, IV Push, PRN, PRN APTT, STAT, 09/17/2024 21:00:00 EDT, REDRAW HEMOLYZED C BLOOD(Blood Cultures SINGLE SET), STAT, 09/17/2024 19:49:00 EDT, Specimen type: Blood, Lab to Collect C BLOOD(Blood Cultures SINGLE SET), STAT, 09/17/2024 19:49:00 EDT, Specimen type: Blood, Separate Collection, Lab to Collect CBCWD, STAT, 09/17/2024 18:16:00 EDT COMPMETA, STAT, 09/17/2024 21:00:00 EDT, REDRAW HEMOLYZED COVID-19 Molecular SWED, STAT, Andrew EVANS, Talia, 09/17/2024 22:44:00 EDT, Specimen type: DOUGHNUT MACHINE OPERATOR HELPER Swab EKG ER, 09/17/2024 18:16:00 EDT, Chest Pain, Cart, Heart Meds Unknown at this time, STAT, No EKG/Britton Requested LACTATE, STAT, 09/17/2024 19:49:00 EDT Level of Care Order, 09/18/2024 00:07:00 EDT, Observation Outpatient with Observation Services, 1DOU, SAGHAFI DO, REAGAN, Chest discomfort, lactic acidosis, generalized fatigue LIP(LIPASE), STAT, 09/17/2024 21:00:00 EDT, REDRAW HEMOLYZED MG LEVEL, STAT, 09/17/2024 21:00:00 EDT, REDRAW HEMOLYZED Misc Nutrition Task to Nursing, 09/17/2024 18:16:00 EDT, Constant Order, NPO PT INR, STAT, 09/17/2024 21:00:00 EDT, REDRAW HEMOLYZED RAP FLU A AND B(RAPID INFLU (more content not included)... Normal [facility] HEMOon 09-18-2024 DIFF? No Normal [facility] Comment on above: Performed By: #### 1 35520, 256275, [id number] #### [facility] [address] [place] [address] Cuff Cutter: Woody Leyva MD Erythrocyte distribution width (RBC) [Ratio] 13.8 % Normal 11.5-14.5 [facility] Comment on above: Result Comment: Revi ewed Performed By: #### 1 45040, 012062, [id number] #### [facility] [address] [place] [address] Cuff Cutter: Woody Leyva MD Hematocrit (Bld) [Volume fraction] 40.8 % Low 41.0-52.0 [facility] Comment on above: Performed By: #### 1 23095, 868563, [id number] #### [facility] [address] [place] [address] Cuff Cutter: Woody Leyva MD Hemoglobin (Bld) [Mass/Vol] 13.6 g/dL Normal 13.5-17.5 [facility] Comment on above: Performed By: #### 1 14168, 062931, [id number] #### [facility] [address] [place] [address] Cuff Cutter: Woody Leyva MD Instr WBC 5.0 Normal [facility] Comment on above: Performed By: #### 1 72444, 732755, [id number] #### [facility] [address] [place] [address] Cuff Cutter: Woody Leyva MD MCH (RBC) [Entitic mass] 34.4 pg High 27.0-34.0 [facility] Comment on above: Performed By: #### 1 22198, 558749, [id number] #### [facility] [address] [place] [address] Cuff Cutter: Woody Leyva MD MCHC (RBC) [Mass/Vol] 33.3 g/dL Normal 32.0-37.0 [facility] Comment on above: Performed By: #### 1 87735, 642160, 1770666 #### [facility] [address] [place] [address] Cuff Cutter: Woody Leyva MD MCV (RBC) [Entitic vol] 103.4 fL High 80.0-100.0 [facility] Comment on above: Performed By: #### 1 73449, 935604, 3786709 #### [facility] [address] [place] [address] Cuff Cutter: Woody Leyva MD Nucleated RBC 0 /100WBC Normal [facility] Comment on above: Performed By: #### 1 63674, 574869, 2476991 #### [facility] [address] [place] [address] Cuff Cutter: Woody Leyva MD Platelet 179 x10 Normal 150-450 [facility] Comment on above: Performed By: #### 1 97285, 023912, 0793712 #### [facility] [address] [place] [address] Cuff Cutter: Woody Leyva MD Platelet mean volume (Bld) [Entitic vol] 8.1 fL Normal 7.4-10.4 [facility] Comment on above: Performed By: #### 1 89679, 845995, 0695272 #### [facility] [address] [place] [address] Cuff Cutter: Woody Leyva MD RBC 3.94 x10 Low 4.70-6.10 [facility] Comment on above: Result Comment: Note : RBC morphology is normal unless otherwise stated. Evaluation performed only if differential is requested. Performed By: #### 1 08210, 594912, [id number] #### [facility] [address] [place] [address] Cuff Cutter: Woody Leyva MD WBC 5.0 x10 Normal 4.5-11.0 [facility] Comment on above: Performed By: #### 1 81746, 810264, [id number] #### [facility] [address] [place], [place] [id number] Cuff Cutter: Woody Leyva MD LACTATEon 09-18-2024 Lactate [Moles/Vol] 2.6 mmol/L High 0.5-2.2 [facility] Comment on above: Order Comment: Sepsi s Lab - Time Sensitive. Do Not Cancel, Delay Lab, or Change Timewas not able to obtain lactate lab @ 2309 with redraw of specimens, pt most likely will refuse future labs notified CRISTINE Kowalski 09/18/2024 00:19:38 EDT AJ Result Comment: Spec imen icteric. Results may be affected. Venipuncture should occur prior to N-Acetyl Cysteine (NAC) administration due to the potential for falsely depressed results Performed By: #### 1 31494, 108257, [id number] #### [facility] [address] [place], [place] [id number] Cuff Cutter: Woody Leyva MD [employer] 2024 [employer] Details [employer] Details Entered On: 09/18/2024 11:32 EDT Performed On: 09/18/2024 8:00 EDT by Nicole Manning RN [employer] Details Transport Mode Order Detail EV : Wheelchair Isolation Precautions RTF : Communication CONSTANT Order, 09/18/2024 09:58:00 EDT, Constant Order, STAT EKG for Chest Pain, STAT ABGs for Acute Respiratory Distress, STAT Potassium/Magnesium for any significant change in condition/rhythm, Ordered Communication CONSTANT Order, 09/18/2024 09:58:00 EDT, Constant Order, Current ACLS Provider may, Initiate [employer] Advanced Cardiac Life support Algorithm per patient code status, Ordered Oxygen Therapy, 09/18/2024 09:58:00 EDT, Nasal Cannula, Constant Order, Dyspnea with Dx COPD, 2-5 L NC PRN (if pt has COPD, oxygen at 2 L NC), Ordered Reason VTE Prophylaxis Not Received, 09/18/2024 09:58:00 EDT, Patient is ambulatory, Ordered Possible Sepsis, 09/18/2024 04:19:29 EDT, 09/18/2024 04:19:29 EDT, Ordered Level of Care Order, 09/18/2024 00:07:00 EDT, Observation Outpatient with Observation Services, 1DOU, SAGHAFI DO, REAGAN, Chest discomfort, lactic acidosis, generalized fatigue, Ordered Transfer Care of Patient to Attending, 09/18/2024 00:07:00 EDT, Upon discharge from the ED, all continued medications and orders become the responsibility of the admitting/attending physician., Ordered Misc Nutrition Task to Nursing, 09/17/2024 18:16:00 EDT, Constant Order, NPO, Ordered Isolation Precaution Order Detail EV : NONE IV Order Detail - EV : No Oxygen Order Detail EV : No Order Detail EV : No Pacemaker Order Detail : 0 [employer] Details Review Status : Initial Review Nurse Collects Blood Specimens : Lluvia Manning RN, Nicole - 09/18/2024 11:32 EDT Normal [facility] Comment on above: Order Comment: Order entered secondary to admission PT INRon 09-18-2024 INR Coag (PPP) [Relative time] 1.4 {INR} Normal [facility] Comment on above: Order Comment: was n ot able to obtain blue top with first stick, pt would not let me stick twice. notified CRISTINE Kowalski 09/17/2024 23:15:27 EDT AJ Result Comment: INR Reference Range: Normal reference range for INR on patients not on anticoagulant therapy: 0.9-1.1 General therapeutic range for patients on anticoagulant therapy: 2.0-3.5 Performed By: #### 1 93228, 555236, 926321, 421128, 818609, [id number] #### [facility] [address] [place] [address] Cuff Cutter: Woody Leyva MD Protime Patient 15.9 seconds High 9.8-12.4 [facility] Comment on above: Order Comment: was n ot able to obtain blue top with first stick, pt would not let me stick twice. notified CRISTINE Kowalski 09/17/2024 23:15:27 EDT AJ Performed By: #### 1 12704, 632791, 927187, 344456, 631916, 924241 #### [facility] [address] [place] [address] Cuff Cutter: Woody Leyva MD Progress Note-Physicianon Progress Note-Physician Patient: CARLO MEDINA Age: 44 years Sex: Male : 1980 Associated Diagnoses: None Author: KARINA BELCHER CNP DOUGHNUT MACHINE OPERATOR HELPER notified by RN that pt refuses both Covid and Influenza A/B swabs. Attending made aware. Normal [facility] TROPONIN HS 2HRon 09-18-2024 Delta Troponin 2 Hr 0 pg/mL Normal 0-14 [facility] Comment on above: Result Comment: The term acute myocardial infarction should be used when there is acute myocardial injury with clinical evidence of acute myocardial ischemia and the rise or fall of serial Troponin HS values (delta troponin) greater than or equal to 15 pg/mL with at least one Troponin HS value above the 99th percentile reference range Performed By: #### 1 17341, 106343, [id number] #### [facility] [address] [place] [address] Cuff Cutter: Woody Leyva MD Troponin HS 2 Hr 34 pg/mL Normal 3-53 [facility] Comment on above: Result Comment: Spec imens from some individuals with pathologically high gamma globulin levels may demonstrate depressed troponin values Performed By: #### 1 23382, 189647, [id number] #### [facility] [address] [place] [address] Cuff Cutter: Woody Leyva MD TROPONIN HS 6HRon 09-18-2024 Delta Troponin 6 Hr 3 pg/mL Normal 0-14 [facility] Comment on above: Order Comment: 6hr t anjel is due @ 0509 from baseline draw 09/18/2024 03:05:57 EDT AJ Result Comment: The term acute myocardial infarction should be used when there is acute myocardial injury with clinical evidence of acute myocardial ischemia and the rise or fall of serial Troponin HS values (delta troponin) greater than or equal to 15 pg/mL with at least one Troponin HS value above the 99th percentile reference range Performed By: #### 1 36708, 787520, [id number] #### [facility] [address] [place], [place] [address] Cuff Cutter: Woody Leyva MD Troponin HS 6 Hr 31 pg/mL Normal 3-53 [facility] Comment on above: Order Comment: 6hr declan hobbs is due @ 0509 from baseline draw 09/18/2024 03:05:57 EDT AJ Result Comment: Spec imens from some individuals with pathologically high gamma globulin levels may demonstrate depressed troponin values Performed By: #### 1 61147, 533883, 6353404 #### [facility] [address] [place], [place] [address] Cuff Cutter: Woody Leyva MD AUTO DIFFon 09-17-2024 Baso Count 0.05 x1000 Normal 0.00-0.20 [facility] Comment on above: Performed By: #### 7 [id number] #### [facility] [address] [place], [place] [address] Cuff Cutter: Woody Leyva MD Basos % 0.6 % Normal [facility] Comment on above: Performed By: #### 7 [id number] #### [facility] [address] [place], [place] [address] Cuff Cutter: Woody Leyva MD Eos Count 0.02 x1000 Normal 0.00-0.50 [facility] Comment on above: Performed By: #### 7 [id number] #### [facility] [address] [place], [place] [address] Cuff Cutter: Woody Leyva MD Eosinophils/100 WBC (Bld) 0.2 % Normal [facility] Comment on above: Performed By: #### 7 [id number] #### [facility] [address] [place] [address] Cuff Cutter: Woody Leyva MD Lymph Count 2.16 x1000 Normal 1.20-4.80 [facility] Comment on above: Performed By: #### 7 [id number] #### [facility] [address] [place] [address] 18[address] Cuff Cutter: Woody Leyva MD Lymphocytes/100 WBC (Bld) 29.0 % Normal [facility] Comment on above: Performed By: #### 7 [id number] #### [facility] [address] [place] [address] Cuff Cutter: Woody Leyva MD Uvalde Count 0.50 x1000 Normal 0.10-1.00 [facility] Comment on above: Performed By: #### 7 [id number] #### [facility] [address] [place] [address]15 Cuff Cutter: Woody Leyva MD Monocytes/100 WBC (Bld) 6.7 % Normal [facility] Comment on above: Performed By: #### 7 [id number] #### [facility] [address] [place] [address] Cuff Cutter: Woody Leyva MD Neutrophil Count (ANC) 4.72 x1000 Normal 1.40-8.80 [facility] Comment on above: Performed By: #### 7 [id number] #### [facility] [address] [place] [address] Cuff Cutter: Woody Leyva MD Neutrophils/100 WBC (Bld) 63.4 % Normal [facility] Comment on above: Performed By: #### 7 [id number] #### [facility] [address] [place] [address] Cuff Cutter: Woody Leyva MD Red Blood Cell Morphology See Notes Abnormal [facility] Comment on above: Result Comment: Macr ocytosis 1+ Anisocytosis 1+ Performed By: #### 7 [id number] #### [facility] [address] [place], [place] [address] Cuff Cutter: Woody Leyva MD Addendum Noteon 09-17-2024 Manager Women Authentication Interface Message Text Addended by: EVA ISAACS on: 09/17/2024 04:17 PM Modules accepted: Orders Normal [facility] CNOVon 09-17-2024 CN Office Visit (UCMBHT ) CARLO MEDINA ([id number]) 1980 M Date Time Provider Department 09/17/24 5:40 PM KING MEDINA [facility] During your visit today, we recorded the following information about you: Pulse Respiration Blood pressure 109/minute 16/minute 108/85 King Medina DO 09/17/2024 6:40 PM Signed [facility] Subjective Carlo Medina is a 44 year old male. Patient presents with: Shortness of Breath: Heart burn, nausea, vomiting, diarrhea, coughing Chest Pain Patient presents with chest pain, shortness of breath, nausea/vomiting, diarrhea, cough. Cough, chest pain, shortness of breath times ~4-5 days. N/v/d started ~1 day ago. He cannot keep anything down today. No fevers/chills. Hx of CHF, cardiac event that appears to be ND, though Patient denies ND. Recently was hospitalized with kidney failure at [facility] [place] and discharged ~5 days ago. Has had multiple admissions this past (10) in the past ~3-4 months. No dizziness/lightheaded ness. No past medical history on file. Current Outpatient Medications Medication Sig apixaban (ELIQUIS) 5 mg tab(s) Take 5 mg by mouth. bumetanide (BUMEX) 1 mg tablet Take 2 mg by mouth. hydrALAZINE (APRESOLINE) 100 mg tablet Take 1 tablet by mouth three times a day. isosorbide dinitrate (ISORDIL) 20 mg tablet Take 20 mg by mouth three times a day. losartan (COZAAR) 50 mg tablet Take 50 mg by mouth once daily. No current facility-administered medications for this visit. ALLERGIES Allergen Reactions Sacubitril-Valsartan Other: See Comments, Vomiting Review of Systems Constitutional: Negative for chills and fever. Respiratory: Positive for cough and shortness of breath. Negative for wheezing. Cardiovascular: Positive for chest pain. Gastrointestinal: Positive for diarrhea, nausea and vomiting. Negative for abdominal pain. Neurological: Negative for dizziness. Objective BP 108/85 Pulse 109 Resp 16 SpO2 99% (Room Air) Physical Exam Vitals and nursing note reviewed. Constitutional: General: He is not in acute distress. Appearance: He is not toxic-appearing or diaphoretic. Comments: Appears a bit ill, but Non-toxic. HENT: Head: Normocephalic and atraumatic. Mouth/Throat: Comments: MM appears somewhat dry. Eyes: General: No scleral icterus. Right eye: No discharge. Left eye: No discharge. Extraocular Movements: Extraocular movements intact. Conjunctiva/sclera: Conjunctivae normal. Pupils: Pupils are equal, round, and reactive to light. Neck: Comments: No meningismus. Cardiovascular: Rate and Rhythm: Regular rhythm. Tachycardia present. Pulmonary: Effort: Pulmonary effort is normal. No respiratory distress. Breath sounds: Normal breath sounds. No stridor. No wheezing, rhonchi or rales. Musculoskeletal: Cervical back: Normal range of motion. Skin: General: Skin is warm and dry. Coloration: Skin is not jaundiced or pale. Neurological: Mental Status: He is alert. {ASSESSMENT/PLAN: 1. Chest pain, unspecified type - ICD9: 786.50, ICD10: R07.9 (primary diagnosis) Given hx, symptoms, EMS called. [facility] arrived within minutes to take Patient to ED. Patient appears stable upon leaving [facility] for ED via EMS. - ECG COMPLETE - Cancelled. We attempted to obtain an EKG here, but EMS arrived, and Patient was taken by squad to ED. 2. Nausea vomiting and diarrhea - ICD9: 787.91, 787.01, ICD10: R11.2, R19.7 King Medina DO History and Record Review External record(s) reviewed: prior inpatient record. Findings from review of inpatient records: Multiple admissions for CHF, Kidney failure, ND recently Differential Diagnoses - Concern for cardiac, dehydration, kidney issues is more likely for the following reason(s): suggested by HANDP Contributing Factors Chronic conditions affecting care: CHF, ND, Kidney Disease Chronic conditions addressed by: CHF, ND, Kidney disease - co-morbidities/risk factors. Disposition The patient was other (comment) (ED via EMS). Pamela Cueto LPN 09/17/2024 6:40 PM Signed [facility], [facility] Surgery Centers and Remote Sites Emergency Response Form. NOT TO BE USED AT [facility] Complete this report when the Emergency Medical Response is activated (911 calls/EmergencyTransp ort to the ED) or when a Code Sheet is utilized in the care of a patient (i.e., ASC) Date of the Event: [id number] (Must provide Value) Time of the Event:5:43pm (Must provide Value) Was emergency response activated? (Local EMS/Emergency Department) YES (Must provide Value) Location of the Incident:[facility] ([facility]) (Must provide Value) Reason/Chief Complaint for Emergency Call (Check all that apply): Chest Pain/Pressure (Must provide Value) (more content not included)... Normal [facility] COMPMETAon 09-17-2024 Albumin [Mass/Vol] 3.1 g/dL Low 3.4-5.0 [facility] Comment on above: Performed By: #### 1 33060, 265023, 439088, 953827, 143904, 251076 #### [facility] [address] [place] [address] Cuff Cutter: Woody Leyva MD Albumin/Globulin [Mass ratio] 1.0 {ratio} Normal [facility] Comment on above: Performed By: #### 1 74569, 988695, 522703, 268248, 220594, 308190 #### [facility] [address] [place] [address] Cuff Cutter: Woody Leyva MD Alk Phos 219 unit/L High 45-117 [facility] Comment on above: Performed By: #### 1 50487, 343882, 317770, 407198, 626541, 794008 #### [facility] [address] [place] [address] Cuff Cutter: Woody Leyva MD Bilirubin [Mass/Vol] 4.40 mg/dL High 0.30-1.20 [facility] Comment on above: Result Comment: Use of this assay is not recommended for patients undergoing treatment with eltrombopag due to the potential for falsely elevated results. Performed By: #### 1 07830, 364088, 784734, 158803, 845482, 440205 #### [facility] [address] [place] [address]15[address] Cuff Cutter: Woody Leyva MD Calcium [Mass/Vol] 9.3 mg/dL Normal 8.7-10.4 [facility] Comment on above: Performed By: #### 1 79686, 038333, 947807, 749658, 953919, 338401 #### [facility] [address] [place] [address]57[address] Cuff Cutter: Woody Leyva MD Chloride [Moles/Vol] 100 mmol/L Normal 98-107 [facility] Comment on above: Performed By: #### 1 98995, 294552, 064609, 615444, 604041, 473141 #### [facility] [address] [place] [address]7516 Cuff Cutter: Woody Leyva MD CO2 [Moles/Vol] 25.0 mmol/L Normal 20.0-31.0 [facility] Comment on above: Performed By: #### 1 07549, 570445, 916415, 720345, 539205, 135206 #### [facility] [address] [place] [address] Cuff Cutter: Woody Leyva MD Creatinine [Mass/Vol] 2.0 mg/dL High 0.6-1.1 [facility] Comment on above: Performed By: #### 1 42116, 505191, 205967, 706785, 955564, 161893 #### [facility] [address] [place] [address] Cuff Cutter: Woody Leyva MD GFR AA 44 [facility] Comment on above: Result Comment: Afri can Dutch GFR Calc Medical judgement is necessary to interpret GFR. The calculated GFR may not accurately reflect renal status in patients >70 years, women, acutely ill hospitalized patients and patients with acute renal failure or known renal disease. The MDRD GFR formula is valid only for adults greater than 18 years of age. Note: Creatinine clearance (not GFR) should be used for drug dosing. Performed By: #### 1 65548, 795224, 335304, 007084, 773330, 140079 #### [facility] [address] [place] [address] Cuff Cutter: Woody Leyva MD Globulin (S) [Mass/Vol] 3.2 g/dL [facility] Comment on above: Performed By: #### 1 14805, 163070, 034640, 876681, 867049, 611020 #### [facility] [address] [place] [address]5817 Cuff Cutter: Woody Leyva MD Glomerular Filtration Rate 36 mL/min/1.73m? [facility] Comment on above: Result Comment: Non- GFR Calc Medical judgement is necessary to interpret GFR. The calculated GFR may not accurately reflect renal status in patients >70 years, women, acutely ill hospitalized patients and patients with acute renal failure or known renal disease. The MDRD GFR formula is valid only for adults greater than 18 years of age. Note: Creatinine clearance (not GFR) should be used for drug dosing. Performed By: #### 1 61346, 679400, 039469, 527648, 745283, 032752 #### [facility] [address] [place] [address] Cuff Cutter: Woody Leyva MD Glucose [Mass/Vol] 99 mg/dL Normal 74-106 [facility] Comment on above: Performed By: #### 1 38605, 536986, 567687, 208436, 096463, 349786 #### [facility] [address] [place] [address] Cuff Cutter: Woody Leyva MD GOT 28 unit/L Normal 15-37 [facility] Comment on above: Performed By: #### 1 19040, 247189, 164537, 754872, 427380, 102346 #### [facility] [address] [place] [address] 81699 Cuff Cutter: Woody Leyva MD GPT 45 unit/L Normal 10-49 [facility] Comment on above: Performed By: #### 1 59065, 015120, 061784, 323188, 962422, 916405 #### [facility] [address] [place] [address] 16286 Cuff Cutter: Woody Leyva MD Osmolality [Osmolality] 292 mosm/kg Normal 275-295 [facility] Comment on above: Performed By: #### 1 46319, 344436, 518958, 917676, 746147, 811210 #### [facility] [address] [place] [address] Cuff Cutter: Woody Leyva MD Potassium [Moles/Vol] 3.6 mmol/L Normal 3.5-5.1 [facility] Comment on above: Result Comment: Spec imen slightly hemolyzed. Results may be affected. Performed By: #### 1 54340, 502189, 043327, 643011, 896061, 985749 #### [facility] [address] [place] [address]42 Cuff Cutter: Woody Leyva MD Protein [Mass/Vol] 6.3 g/dL Normal 5.7-8.2 [facility] Comment on above: Result Comment: Tota l Protein results may be increased in patients receiving dextran as a blood volume food selector Performed By: #### 1 20160, 523440, 192465, 592071, 259580, 909472 #### [facility] [address] [place] [address] 19911 Cuff Cutter: Woody Leyva MD Sodium [Moles/Vol] 141 mmol/L Normal 135-145 [facility] Comment on above: Performed By: #### 1 31708, 478043, 646170, 564852, 976281, 467266 #### [facility] [address] [place] [address] 07864 Cuff Cutter: Woody Leyva MD Urea nitrogen [Mass/Vol] 43 mg/dL High 9-23 [facility] Comment on above: Result Comment: - Ve nipuncture should occur prior to N-Acetyl Cysteine (NAC) or Metamizole (Sulpyrine) administration due to the potential for falsely depressed results. - Blood samples from some patients with monoclonal gammopathies may produce falsely elevated results Performed By: #### 1 20260, 195776, 600890, 222697, 236205, 351171 #### [facility] [address] [place] [address] Cuff Cutter: Woody Leyva MD Urea nitrogen/Creatinine [Mass ratio] 21.5 mg/mg Normal [facility] Comment on above: Performed By: #### 1 70141, 075696, 443778, 836351, 413589, 541393 #### [facility] [address] [place] [address] 77662 Cuff Cutter: Woody Leyva MD HEMOon 09-17-2024 DIFF? No Normal [facility] Comment on above: Performed By: #### 7 [id number] #### [facility] [address] [place] [address] Cuff Cutter: Woody Leyva MD Erythrocyte distribution width (RBC) [Ratio] 17.7 % High 11.5-14.5 [facility] Comment on above: Performed By: #### 7 [id number] #### [facility] [address] [place] [address]3451 Cuff Cutter: Woody Leyva MD Hematocrit (Bld) [Volume fraction] 46.5 % Normal 41.0-52.0 [facility] Comment on above: Performed By: #### 7 [id number] #### [facility] [place] [id number] Cuff Cutter: Woody Leyva MD Hemoglobin (Bld) [Mass/Vol] 15.1 g/dL Normal 13.5-17.5 [facility] Comment on above: Performed By: #### 7 [id number] #### [facility] [place] [address] Cuff Cutter: Woody Leyva MD Instr WBC 7.5 Normal [facility] Comment on above: Performed By: #### 7 [id number] #### [facility] [address] [place] [address]4620 Cuff Cutter: Woody Leyva MD MCH (RBC) [Entitic mass] 34.4 pg High 27.0-34.0 [facility] Comment on above: Performed By: #### 7 [id number] #### [facility] [address] [place] [address]304 Cuff Cutter: Woody Leyva MD MCHC (RBC) [Mass/Vol] 32.4 g/dL Normal 32.0-37.0 [facility] Comment on above: Performed By: #### 7 [id number] #### [facility] [address] [place] [address] 90910 Cuff Cutter: Woody Leyva MD MCV (RBC) [Entitic vol] 106.1 fL High 80.0-100.0 [facility] Comment on above: Performed By: #### 7 [id number] #### [facility] [address] [place] [address]204 Cuff Cutter: Woody Leyva MD MDW 20.98 High 13.98-20.00 [facility] Comment on above: Result Comment: MDW Interpretation: - For adults age 18-89 in ED, MDW >20.0 may be associated with a higher risk of Sepsis during the first 12 hours of hospital admission. - The predictive value of MDW for identifying Sepsis in patients with hematological abnormalities has not been established. - Interpret with caution when immature granulocytes, variant lymphs, or blast cells are noted on the differential. - Confirm patient age is within intended use population (18-89 years) for MDW. - For ED adults suspected of Sepsis, MDW less than or equal to 20.0 does not rule out Sepsis or the risk of Sepsis. Performed By: #### 7 [id number] #### [facility] [address] [place], [place] [address] Cuff Cutter: Woody Leyva MD Nucleated RBC 0 /100WBC Normal [facility] Comment on above: Performed By: #### 7 [id number] #### [facility] [address] [place] [address]40 Cuff Cutter: Woody Leyva MD Platelet 236 x10 Normal 150-450 [facility] Comment on above: Performed By: #### 7 [id number] #### [facility] [address] [place] [address] 00595 Cuff Cutter: Woody Leyva MD Platelet mean volume (Bld) [Entitic vol] 8.4 fL Normal 7.4-10.4 [facility] Comment on above: Performed By: #### 7 [id number] #### [facility] [address] [place] [address] 15930 Cuff Cutter: Woody Leyva MD RBC 4.38 x10 Low 4.70-6.10 [facility] Comment on above: Result Comment: Note : RBC morphology is normal unless otherwise stated. Evaluation performed only if differential is requested. Performed By: #### 7 [id number] #### [facility] [address] [place] [address] Cuff Cutter: Woody Leyva MD WBC 7.5 x10 Normal 4.5-11.0 [facility] Comment on above: Performed By: #### 7 [id number] #### [facility] [address] [place] [address] 64974 Cuff Cutter: Woody Leyva MD LACTATEon 09-17-2024 Lactate [Moles/Vol] 3.2 mmol/L High 0.5-2.2 [facility] Comment on above: Result Comment: Spec imen icteric. Results may be affected. Venipuncture should occur prior to N-Acetyl Cysteine (NAC) administration due to the potential for falsely depressed results Performed By: #### 1 88777, 072181, 0686676 #### [facility] [address] [place] [address] 03706 Cuff Cutter: Woody Leyva MD LIPon 09-17-2024 Lipase [Catalytic activity/Vol] 20 U/L Normal 12-53 [facility] Comment on above: Performed By: #### 1 38734, 449665, 143352, 541882, 734224, 766543 #### [facility] [address] [place] [address] 72464 Cuff Cutter: Woody Leyva MD MG LEVELon 09-17-2024 Magnesium [Mass/Vol] 2.2 mg/dL Normal 1.6-2.6 [facility] Comment on above: Performed By: #### 1 30578, 339433, 597463, 554728, 838434, 637569 #### [facility] [address] [place] [address] 57575 Cuff Cutter: Woody Leyva MD Patient Instructionson 09-17 Manager Women Authentication Interface Message Text Normal [facility] Progress Noteson 09-17-2024 Manager Women Authentication Interface Message Text Identification was verified by patient verbalizing his name and date of . Normal [facility] Manager Women Authentication Interface Message Text Normal [facility] SED RATEon 09-17-2024 Sed Rate Westergren 9 mm/hr Normal 0-15 [facility] Comment on above: Performed By: #### 7 [id number] #### [facility] [address] [place] [address] Cuff Cutter: Woody Leyva MD THY GPon 09-17-2024 Free T4 [Mass/Vol] 1.80 ng/dL High 0.89-1.76 [facility] Comment on above: Result Comment: - Th e anticonvulsant drug phenytoin may interfere with total and free T4 levels due to competition for TBG binding sites - Free T4 values may be decreased in patients with non-thyroidal conditions and in patients taking carbamazepine Performed By: #### 1 71843, 550470, 178532, 464580, 768527, 996001 #### [facility] [address] [place] [address] Cuff Cutter: Woody Leyva MD TSH Qn 0.29 m[IU]/L Low 0.55-4.78 [facility] Comment on above: Result Comment: - Do not use samples that contain fluorescein. Fluorescein levels > 0.24 ?g/mL may decrease results in this assay - Patients undergoing retinal fluorescein angiography can retain amounts of fluorescein in the body for up to 48?72 hours post-treatment. Such samples can produce falsely depressed values when tested with this assay, and should not be tested Reference Intervals (if applicable): First trimester: 0.6-3.4 uIU/mL Second trimester: 0.37-3.6 uIU/mL Third trimester: 0.38-4.04 uIU/mL Reference: [email or web address] (03/2023) Performed By: #### 1 [id number], [id number], [id number], [id number] #### [facility] [address] [place], [place] [id number] Cuff Cutter: Woody Leyva MD TROPONIN HS 0HRon 09-17-2024 Troponin HS 0 Hr 34 pg/mL Normal 3-53 [facility] Comment on above: Result Comment: Spec imens from some individuals with pathologically high gamma globulin levels may demonstrate depressed troponin values Performed By: #### 7 [id number] #### [facility] [address] [place], [place] [id number] Cuff Cutter: Woody Leyva MD UAon 09-17-2024 Appearance, U Hazy Abnormal Clear [facility] Comment on above: Performed By: #### 7 [id number] #### [facility] [place] [id number] Cuff Cutter: Woody Leyva MD Bilirubin, U 0.5 mg/dl Abnormal Negative [facility] Comment on above: Result Comment: Bili waite, U: Initial positive urine bilirubin results are not confirmed. Interfering substances may include elevated urobilinogen. Trace = 0.5-1.0 mg/dL Small = 2.0-4.0 mg/dL Moderate = 6.0-8.0 mg/dL Large = 10 mg/dl and greater Performed By: #### 7 [id number] #### [facility] [place] [id number] Cuff Cutter: Woody Leyva MD Blood, U Negative Normal Negative [facility] Comment on above: Result Comment: Bloo d, U: Trace = 0.03-0.05 mg/dL Small = 0.06-0.1 mg/dL Moderate = 0.2-0.5 mg/dL Large = 1.0 mg/dL and greater Performed By: #### 7 [id number] #### [facility] [address] [place], [place] [id number] Cuff Cutter: Woody Leyva MD Color, U Dark-Yellow Normal Yellow [facility] Comment on above: Performed By: #### 7 [id number] #### [facility] [address] [place] [address] Cuff Cutter: Woody Leyva MD Glucose Qual, U Negative Normal Negative [facility] Comment on above: Performed By: #### 7 [id number] #### [facility] [address] [place] [address] Cuff Cutter: Woody Leyva MD Hyaline Cast 2 #/HPF Normal [facility] Comment on above: Performed By: #### 7 [id number] #### [facility] [address] [place] [address] Cuff Cutter: Woody Leyva MD Ketones, U Negative Normal Negative [facility] Comment on above: Performed By: #### 7 [id number] #### [facility] [address] [place] [address] Cuff Cutter: Woody Leyva MD Leukocyte Esterase, U Negative Normal Negative [facility] Comment on above: Result Comment: Leuk ocyte Esterase, U: Trace = 25 Nicky/uL Small = 75 Nicky/uL Moderate = 250 Nicky/uL Large = 500 Nicky/uL and greater Performed By: #### 7 [id number] #### [facility] [address] [place] [address] Cuff Cutter: Woody Leyva MD Mucous, U Occasional Normal [facility] Comment on above: Performed By: #### 7 [id number] #### [facility] [address] [place] [address] Cuff Cutter: Woody Leyva MD Nitrite, U Negative Normal Negative [facility] Comment on above: Performed By: #### 7 [id number] #### [facility] [address] [place] [address] Cuff Cutter: Woody Leyva MD pH, U 5.5 Normal 4.5-8.0 [facility] Comment on above: Performed By: #### 7 [id number] #### [facility] [address] [place] [address] Cuff Cutter: Woody Leyva MD Protein, U 100 mg/dl Abnormal Negative [facility] Comment on above: Performed By: #### 7 [id number] #### [facility] [address] [place], [place] [id number] Cuff Cutter: Woody Leyva MD Specific [place], U 1.032 Normal 1.001-1.035 [facility] Comment on above: Performed By: #### 7 [id number] #### [facility] [address] [place] [address] Cuff Cutter: Woody Leyva MD U MICRO Indicated Normal [facility] Comment on above: Performed By: #### 7 [id number] #### [facility] [address] [place] [address] Cuff Cutter: Woody Leyva MD U SPERM Present Normal [facility] Comment on above: Performed By: #### 7 [id number] #### [facility] [address] [place] [address] Cuff Cutter: Woody Leyva MD Urobilinogen Qual, U 4 mg/dl Abnormal < 2 mg/dl [facility] Comment on above: Result Comment: Urob ilinogen, U: EU/dl and mg/dl are equivalent units. Performed By: #### 7 [id number] #### [facility] [address] [place] [address] Cuff Cutter: Woody Leyva MD WBC/HPF, U 1 #/HPF Normal 0-5 [facility] Comment on above: Performed By: #### 7 [id number] #### [facility] [address] [place] [address] Cuff Cutter: Woody Leyva MD XR CHEST PORTABLEon 09-18-19 XR CHEST PORTABLE EXAM: XR Chest, 1 View CLINICAL HISTORY: 44 years, Male, CHEST PAIN, TECHNIQUE: Frontal view of the chest. COMPARISON: No relevant prior studies available. FINDINGS: LUNGS: Unremarkable. No consolidation. PLEURAL SPACE: Unremarkable. No pneumothorax. HEART: Moderately enlarged cardiac silhouette. MEDIASTINUM: Unremarkable. Normal mediastinal contour. BONES/JOINTS: Unremarkable. No acute fracture. IMPRESSION: 1. No acute cardiopulmonary findings. 2. Moderately enlarged cardiac silhouette. Electronically signed by: Kt Silva MD 09/17/2024 08:07 PM EDT RP Technologist: SC Dictated By: KT SILVA Jr., MD Signed By: KT SILVA Jr., MD Signed Out: 09/17/24 20:07:50 Normal [facility] Progress Noteson 09-13-2024 Manager Women Authentication Interface Message Text Normal [facility] Progress Noteson 09-11-2024 Manager Women Authentication Interface Message Text Normal [facility] Manager Women Authentication Interface Message Text Normal [facility] Progress Notes - NoteWritero n 09-11-2024 Manager Women Authentication Interface Message Text Normal [facility] LACTIC ACIDon 09-10-2024 CR LACT 2.6 mmol/L High 0.5-1.6 [facility] Comment on above: Order Comment: This test was developed, and its performance characteristics determined by the Department of Pathology of [facility]. It has not been cleared or approved by the FDA. This test is used for clinical purposes only. Performed By: #### L ACT ####[facility] [id number] [place], [place], Progress Noteson 09-10-2024 Manager Women Authentication Interface Message Text Normal [facility] Manager Women Authentication Interface Message Text Normal [facility] Progress Notes - NoteWritero n 09-10-2024 Manager Women Authentication Interface Message Text Normal [facility] BASIC METABOLIC PANELon 08-28 Anion gap [Moles/Vol] 15 mmol/L Normal 10-20 [facility] Comment on above: Performed By: #### H TICO MG, CH8 ####[facility] [id number] [place], Calcium [Mass/Vol] 7.7 mg/dL Low 8.6-10.3 [facility] Comment on above: Performed By: #### H TICO MG, CH8 ####[facility] [id number] [place], Chloride [Moles/Vol] 97 mmol/L Low 98-107 [facility] Comment on above: Performed By: #### H TICO MG, CH8 ####[facility] [id number] [place], CO2 [Moles/Vol] 31 mmol/L Normal 21-31 [facility] Comment on above: Performed By: #### H TICO MG, CH8 ####S PATHOLOGY [id number] [place], Creatinine [Mass/Vol] 1.81 mg/dL High 0.70-1.30 [facility] Comment on above: Performed By: #### H TICO MG, CH8 ####S PATHOLOGY [id number] [place], ESTIMATED GFR (CKD-EPI) 46 mL/min/1.73sqm Low >=60 [facility] Comment on above: Result Comment: 2020 CKD EPI Equation using Creatinine without RaceComment: Estimated glomerular filtration rate (eGFR) is calculated without a race coefficient. Values should be interpreted in the context of the patient's full clinical presentation.Reference:1. Berny C, Melonie M, Alecia BABCOCK, et al.. A Unifying Approach for GFR Estimation: Recommendations of the NKF-ASN Task Force on Reassessing the Inclusion of Race in Diagnosing Kidney Disease. Dutch Journal of Kidney Diseases 2021;79(2):268-88.e1.2. N Engl J Med 2020 Vol. 385 Issue 19 Pages 5949-8132 Performed By: #### H TICO MG, CH8 ####[facility] [id number] [place], Glucose [Mass/Vol] 110 mg/dL High 74-109 [facility] Comment on above: Performed By: #### H TICO MG, CH8 ####S PATHOLOGY [id number] [place], Potassium [Moles/Vol] 3.9 mmol/L Normal 3.5-5.0 [facility] Comment on above: Performed By: #### H MG TICO, FERNANDO8 ####[facility] [id number] [place], Sodium [Moles/Vol] 139 mmol/L Normal 136-145 [facility] Comment on above: Performed By: #### H MG TICO, FERNANDO8 ####[facility] [id number] [place], Urea nitrogen [Mass/Vol] 36 mg/dL High 7-25 [facility] Comment on above: Performed By: #### H MG TICO, AUGUSTO ####[facility] PATHOLOGY [id number] [place] [address], CBC WITH DIFFERENTIALon 08-28 Basophils (Bld) [#/Vol] 0.07 10*3/uL Normal 0.00-0.20 [facility] Comment on above: Performed By: #### C BCDSAT ####[facility] PATH[facility] [id number] [place], Basophils/100 WBC (Bld) 0.8 % Normal <=1.9 [facility] Comment on above: Performed By: #### C BCDSAT ####[facility] PATHOLOGY [id number] [place], Eosinophils (Bld) [#/Vol] 0.09 10*3/uL Normal 0.00-0.70 [facility] Comment on above: Performed By: #### C BCDSAT ####S PATHOLOGY [id number] [place], Eosinophils/100 WBC (Bld) 1.0 % Normal 0.1-4.0 [facility] Comment on above: Performed By: #### C BCDSAT ####S PATHOLOGY [id number] [place], Erythrocyte distribution width (RBC) [Ratio] 13.8 % Normal 11.5-14.5 [facility] Comment on above: Performed By: #### C BCDSAT ####[facility] PATHOLOG[facility] [id number] [place], Hematocrit (Bld) [Volume fraction] 43.5 % Normal 41.0-53.0 [facility] Comment on above: Performed By: #### C BCDSAT ####[facility] PATH[facility] [id number] [place], Hemoglobin (Bld) [Mass/Vol] 14.7 g/dL Normal 13.9-16.3 [facility] Comment on above: Performed By: #### C BCDSAT ####[facility] PATH[facility] [id number] [place], Lymphocytes (Bld) [#/Vol] 2.51 10*3/uL Normal 1.00-4.80 [facility] Comment on above: Performed By: #### C BCDSAT ####[facility] PATH[facility] [id number] [place], Lymphocytes/100 WBC (Bld) 28.5 % Normal 24.0-44.0 [facility] Comment on above: Performed By: #### C BCDSAT ####[facility] PATHOLOG[facility] [id number] [place], MCH (RBC) [Entitic mass] 34.4 pg High 26.0-34.0 [facility] Comment on above: Performed By: #### C BCDSAT ####[facility] [id number] [place], MCHC (RBC) [Mass/Vol] 33.9 g/dL Normal 32.0-35.9 [facility] Comment on above: Performed By: #### C BCDSAT ####[facility] PATH[facility] [id number] [place], MCV (RBC) [Entitic vol] 102 fL High 80-100 [facility] Comment on above: Performed By: #### C BCDSAT ####[facility] [id number] [place], Monocytes (Bld) [#/Vol] 0.69 10*3/uL Normal 0.20-1.00 [facility] Comment on above: Performed By: #### C BCDSAT ####S PATHOLOGY [id number] [place], Monocytes/100 WBC (Bld) 7.8 % Normal 2.0-11.0 [facility] Comment on above: Performed By: #### C BCDSAT ####S PATHOLOGY [id number] [place], Neutrophils (Bld) [#/Vol] 5.46 10*3/uL Normal 1.50-8.00 [facility] Comment on above: Performed By: #### C BCDSAT ####[facility] [id number] [place], Neutrophils/100 WBC (Bld) 61.9 % Normal 31.0-76.0 [facility] Comment on above: Performed By: #### C BCDSAT ####[facility] [id number] [place], Platelet mean volume (Bld) [Entitic vol] 7.7 fL Normal 7.5-11.2 [facility] Comment on above: Performed By: #### C BCDSAT ####S PATHOLOGY [id number] [place] [address], Platelets (Bld) [#/Vol] 278 10*3/uL Normal 150-400 [facility] Comment on above: Performed By: #### C BCDSAT ####S PATHOLOGY [id number] [place], RBC (Bld) [#/Vol] 4.28 10*6/uL Low 4.50-5.90 [facility] Comment on above: Performed By: #### C BCDSAT ####[facility] [id number] [place], WBC (Bld) [#/Vol] 8.8 10*3/uL Normal 4.5-11.5 [facility] Comment on above: Performed By: #### C BCDSAT ####[facility] [id number] [place], HEPATIC FUNCTION PANELon Albumin [Mass/Vol] 3.6 g/dL Normal 3.5-5.7 [facility] Comment on above: Performed By: #### MG NEPTALI, CH8 ####S PATHOLOGY [id number] [place], ALK 202 IU/L High 34-104 [facility] Comment on above: Performed By: #### MG NEPTALI, CH8 ####S PATHOLOGY [id number] [place], ALT [Catalytic activity/Vol] 37 U/L Normal 7-52 [facility] Comment on above: Performed By: #### MG NEPTALI, CH8 ####S PATHOLOGY [id number] [place], AST [Catalytic activity/Vol] 24 U/L Normal 13-39 [facility] Comment on above: Performed By: #### MG NEPTALI, CH8 ####S PATHOLOGY [id number] [place], Bilirubin [Mass/Vol] 2.2 mg/dL High 0.3-1.0 [facility] Comment on above: Performed By: #### MG NEPTALI, CH8 ####S PATHOLOGY [id number] [place], Bilirubin.direct [Mass/Vol] 0.79 mg/dL High 0.03-0.18 [facility] Comment on above: Performed By: #### MG NEPTALI, CH8 ####S PATHOLOGY [id number] [place], Protein [Mass/Vol] 6.1 g/dL Normal 6.0-8.3 [facility] Comment on above: Performed By: #### MG NEPTALI, CH8 ####[facility] [id number] [place], MAGNESIUMon 09-09-2024 Magnesium [Mass/Vol] 1.5 mg/dL Low 1.9-2.7 [facility] Comment on above: Performed By: #### H MG TICO, CH8 ####[facility] [id number] [place], PROTHROMBIN TIME AND INRon 0 09-09-2024 INR Coag (PPP) [Relative time] 1.24 {INR} High 0.90-1.10 [facility] Comment on above: Performed By: #### P T ####[facility] [id number] [place], PT Coag (PPP) [Time] 13.9 s High 9.7-12.9 [facility] Comment on above: Performed By: #### P T ####S PATHOLOGY [id number] [place], Progress Noteson 09-09-2024 Manager Women Authentication Interface Message Text Normal [facility] Manager Women Authentication Interface Message Text Normal [facility] Progress Notes - NoteWritero n 09-09-2024 Manager Women Authentication Interface Message Text Pt had 5 beats of NSVT on telemetry. When assessed, pt was laying supine with no complaints of being symptomatic. Chrissy DO notified. No further orders at this time. Normal [facility] BASIC METABOLIC PANELon 08-28 Anion gap [Moles/Vol] 17 mmol/L Normal 10-20 [facility] Comment on above: Performed By: #### H MG TICO, CH8 ####S PATHOLOGY [id number] [place], Calcium [Mass/Vol] 7.9 mg/dL Low 8.6-10.3 [facility] Comment on above: Performed By: #### H TICO MG, CH8 ####[facility] [id number] [place], Chloride [Moles/Vol] 96 mmol/L Low 98-107 [facility] Comment on above: Performed By: #### H TICO MG, CH8 ####[facility] [id number] [place], CO2 [Moles/Vol] 32 mmol/L High 21-31 [facility] Comment on above: Performed By: #### MG NEPTALI, CH8 ####[facility] [id number] [place], Creatinine [Mass/Vol] 1.68 mg/dL High 0.70-1.30 [facility] Comment on above: Performed By: #### MG NEPTALI, CH8 ####S PATHOLOGY [id number] [place], ESTIMATED GFR (CKD-EPI) 50 mL/min/1.73sqm Low >=60 [facility] Comment on above: Result Comment: 2020 CKD EPI Equation using Creatinine without RaceComment: Estimated glomerular filtration rate (eGFR) is calculated without a race coefficient. Values should be interpreted in the context of the patient's full clinical presentation.Reference:1. Berny C, Melonie M, Alecia BABCOCK, et al.. A Unifying Approach for GFR Estimation: Recommendations of the NKF-ASN Task Force on Reassessing the Inclusion of Race in Diagnosing Kidney Disease. [place] Journal of Kidney Diseases 2021;79(2):268-88.e1.2. N Engl J Med 2020 Vol. 385 Issue 19 Pages 0821-2762 Performed By: #### MG NEPTALI, CH8 ####S PATHOLOGY [id number] [place], Glucose [Mass/Vol] 101 mg/dL Normal 74-109 [facility] Comment on above: Performed By: #### MG NEPTALI, CH8 ####[facility] [id number] [place], Potassium [Moles/Vol] 4.1 mmol/L Normal 3.5-5.0 [facility] Comment on above: Performed By: #### MG NEPTALI, CH8 ####[facility] [id number] [place], Sodium [Moles/Vol] 141 mmol/L Normal 136-145 [facility] Comment on above: Performed By: #### MG NEPTALI, CH8 ####[facility] [id number] [place], Urea nitrogen [Mass/Vol] 34 mg/dL High 7-25 [facility] Comment on above: Performed By: #### MG NEPTALI, CH8 ####[facility] PATHOLOGY [id number] [place] [address], CBC WITH DIFFERENTIALon 08-28 Basophils (Bld) [#/Vol] 0.06 10*3/uL Normal 0.00-0.20 [facility] Comment on above: Performed By: #### C BCDSAT ####[facility] PATH[facility] [id number] [place], Basophils/100 WBC (Bld) 0.7 % Normal <=1.9 [facility] Comment on above: Performed By: #### C BCDSAT ####[facility] PATHOLOGY [id number] [place] [address], Eosinophils (Bld) [#/Vol] 0.07 10*3/uL Normal 0.00-0.70 [facility] Comment on above: Performed By: #### C BCDSAT ####[facility] PATHOLOGY [id number] [place] [address], Eosinophils/100 WBC (Bld) 0.8 % Normal 0.1-4.0 [facility] Comment on above: Performed By: #### C BCDSAT ####[facility] PATHOLOGY [id number] [place], Erythrocyte distribution width (RBC) [Ratio] 13.6 % Normal 11.5-14.5 [facility] Comment on above: Performed By: #### C BCDSAT ####[facility] PATHOLOGY [id number] [place], Hematocrit (Bld) [Volume fraction] 43.0 % Normal 41.0-53.0 [facility] Comment on above: Performed By: #### C BCDSAT ####[facility] PATHOLOGY [id number] [place], Hemoglobin (Bld) [Mass/Vol] 14.4 g/dL Normal 13.9-16.3 [facility] Comment on above: Performed By: #### C BCDSAT ####[facility] PATHOLOGY [id number] [place], Lymphocytes (Bld) [#/Vol] 2.29 10*3/uL Normal 1.00-4.80 [facility] Comment on above: Performed By: #### C BCDSAT ####[facility] PATHOLOGY [id number] [place], Lymphocytes/100 WBC (Bld) 27.3 % Normal 24.0-44.0 [facility] Comment on above: Performed By: #### C BCDSAT ####[facility] PATHOLOGY [id number] [place], MCH (RBC) [Entitic mass] 34.4 pg High 26.0-34.0 [facility] Comment on above: Performed By: #### C BCDSAT ####[facility] PATHOLOGY [id number] [place], MCHC (RBC) [Mass/Vol] 33.4 g/dL Normal 32.0-35.9 [facility] Comment on above: Performed By: #### C BCDSAT ####[facility] PATHOLOGY [id number] [place] [address], MCV (RBC) [Entitic vol] 103 fL High 80-100 [facility] Comment on above: Performed By: #### C BCDSAT ####[facility] PATHOLOGY [id number] [place], Monocytes (Bld) [#/Vol] 0.77 10*3/uL Normal 0.20-1.00 [facility] Comment on above: Performed By: #### C BCDSAT ####[facility] PATHOLOGY [id number] [place], Monocytes/100 WBC (Bld) 9.1 % Normal 2.0-11.0 [facility] Comment on above: Performed By: #### C BCDSAT ####[facility] PATHOLOG[facility] [id number] [place], Neutrophils (Bld) [#/Vol] 5.21 10*3/uL Normal 1.50-8.00 [facility] Comment on above: Performed By: #### Kelly HERNANDEZAT ####[facility] PATHOLOGY [id number] [place], [place], Neutrophils/100 WBC (Bld) 62.1 % Normal 31.0-76.0 [facility] Comment on above: Performed By: #### Kelly HERNANDEZAT ####[facility] PATHOLOGY [id number] [place], Platelet mean volume (Bld) [Entitic vol] 8.1 fL Normal 7.5-11.2 [facility] Comment on above: Performed By: #### Kelly HERNANDEZAT ####[facility] PATHOLOGY [id number] [place], Platelets (Bld) [#/Vol] 278 10*3/uL Normal 150-400 [facility] Comment on above: Performed By: #### Kelly HERNANDEZAT ####S PATHOLOGY [id number] [place], RBC (Bld) [#/Vol] 4.19 10*6/uL Low 4.50-5.90 [facility] Comment on above: Performed By: #### Kelly HERNANDEZAT ####[facility] PATHOLOGY [id number] [place], WBC (Bld) [#/Vol] 8.4 10*3/uL Normal 4.5-11.5 [facility] [place] Comment on above: Performed By: #### Kelly HERNANDEZAT ####[facility] PATHOLOGY [id number] [place], H AND Timo 09-08-2024 Manager Women Authentication Interface Message Text Normal [facility] HEPATIC FUNCTION PANELon Albumin [Mass/Vol] 3.7 g/dL Normal 3.5-5.7 [facility] [place] Comment on above: Performed By: #### H EPATIC, MG, CH8 ####S PATHOLOGY [id number] [place], ALK 247 IU/L High 34-104 [facility] Comment on above: Performed By: #### H MG TICO, CH8 ####[facility] PATHOLOGY [id number] [place], ALT [Catalytic activity/Vol] 42 U/L Normal 7-52 [facility] Comment on above: Performed By: #### H MG TICO, CH8 ####S PATHOLOGY [id number] [place], AST [Catalytic activity/Vol] 27 U/L Normal 13-39 [facility] Comment on above: Performed By: #### H MG TICO, CH8 ####S PATHOLOGY [id number] [place], Bilirubin [Mass/Vol] 2.2 mg/dL High 0.3-1.0 [facility] Comment on above: Performed By: #### H MG TICO, CH8 ####[facility] PATHOLOGY [id number] [place], Bilirubin.direct [Mass/Vol] 0.85 mg/dL High 0.03-0.18 The [facility] Comment on above: Performed By: #### H MG TICO, CH8 ####[facility] PATHOLOGY [id number] [place], Protein [Mass/Vol] 6.4 g/dL Normal 6.0-8.3 The [facility] Comment on above: Performed By: #### H MG TICO, CH8 ####[facility] PATHOLOGY [id number] [place], LACTIC ACIDon 09-08-2024 CR LACT 2.6 mmol/L High 0.5-1.6 The [facility] Comment on above: Order Comment: This test was developed, and its performance characteristics determined by the Department of Pathology of The [facility]. It has not been cleared or approved by the FDA. This test is used for clinical purposes only. Performed By: #### L ACT ####S PATHOLOGY [id number] [place] [address], MAGNESIUMon 09-08-2024 Magnesium [Mass/Vol] 1.4 mg/dL Low 1.9-2.7 [facility] Comment on above: Performed By: #### H EPATIC, MG, CH8 ####[facility] [id number] [place], PROTHROMBIN TIME AND INRon 0 09-08-2024 INR Coag (PPP) [Relative time] 1.21 {INR} High 0.90-1.10 [facility] Comment on above: Performed By: #### P T ####[facility] [id number] [place], PT Coag (PPP) [Time] 13.5 s High 9.7-12.9 [facility] Comment on above: Performed By: #### P T ####S PATHOLOGY [id number] [place], Progress Noteson 09-08-2024 Manager Women Authentication Interface Message Text Pt had 5 beats of NSVT on telemetry. Pt observed laying down in bed, reports being asymptomatic. Chrissy DO notified. No further orders at this time. Normal [facility] Manager Women Authentication Interface Message Text Normal [facility] Disruptive Behavior Progress Noteon 09-07-2024 Manager Women Authentication Interface Message Text Normal [facility] Progress Noteson 09-07-2024 Manager Women Authentication Interface Message Text Normal [facility] Manager Women Authentication Interface Message Text Normal [facility] Transfer Noteon 09-07-2024 Manager Women Authentication Interface Message Text Normal [facility] BASIC METABOLIC PANELon 03- Anion gap [Moles/Vol] 17 mmol/L Normal 10-20 [facility] Comment on above: Performed By: #### C H8, HEPATIC, MG ####[facility] [id number] [place], Calcium [Mass/Vol] 8.0 mg/dL Low 8.6-10.3 [facility] Comment on above: Performed By: #### C H8, HEPATIC, MG ####[facility] [id number] [place], Chloride [Moles/Vol] 96 mmol/L Low 98-107 [facility] Comment on above: Performed By: #### C H8, HEPATIC, MG ####[facility] [id number] [place], CO2 [Moles/Vol] 29 mmol/L Normal 21-31 [facility] Comment on above: Performed By: #### C H8, HEPATIC, MG ####[facility] [id number] [place], Creatinine [Mass/Vol] 1.85 mg/dL High 0.70-1.30 [facility] Comment on above: Performed By: #### C H8, HEPATIC, MG ####[facility] [id number] [place], ESTIMATED GFR (CKD-EPI) 45 mL/min/1.73sqm Low >=60 [facility] Comment on above: Result Comment: 2020 CKD EPI Equation using Creatinine without RaceComment: Estimated glomerular filtration rate (eGFR) is calculated without a race coefficient. Values should be interpreted in the context of the patient's full clinical presentation.Reference:1. Berny C, Melonie M, Alecia DC, et al.. A Unifying Approach for GFR Estimation: Recommendations of the NKF-ASN Task Force on Reassessing the Inclusion of Race in Diagnosing Kidney Disease. [place] Journal of Kidney Diseases 2021;79(2):268-88.e1.2. N Engl J Med 2020 Vol. 385 Issue 19 Pages 9375-8527 Performed By: #### C H8, HEPATIC, MG ####[facility] [id number] [place], Glucose [Mass/Vol] 133 mg/dL High 74-109 [facility] Comment on above: Performed By: #### C H8, HEPATIC, MG ####[facility] [id number] [place], Potassium [Moles/Vol] 3.9 mmol/L Normal 3.5-5.0 [facility] Comment on above: Performed By: #### C H8, HEPATIC, MG ####[facility] [id number] [place], Sodium [Moles/Vol] 138 mmol/L Normal 136-145 [facility] Comment on above: Performed By: #### Kelly Simon, HEPATIC, MG ####[facility] [id number] [place], Urea nitrogen [Mass/Vol] 39 mg/dL High 7-25 [facility] Comment on above: Performed By: #### Kelly Simon, HEPATIC, MG ####[facility] [id number] [place], Anion gap [Moles/Vol] 17 mmol/L Normal 10-20 [facility] [place] Comment on above: Performed By: #### Kelly Simon, HEPATIC, MG ####[facility] [id number] [place], Calcium [Mass/Vol] 8.2 mg/dL Low 8.6-10.3 [facility] [place] Comment on above: Performed By: #### Kelly Simon, HEPATIC, MG ####[facility] [id number] [place], Chloride [Moles/Vol] 98 mmol/L Normal 98-107 [facility] [place] Comment on above: Performed By: #### Kelly Simon, HEPATIC, MG ####[facility] [id number] [place], CO2 [Moles/Vol] 29 mmol/L Normal 21-31 [facility] Comment on above: Performed By: #### Kelly Simon, HEPATIC, MG ####[facility] [id number] [place], Creatinine [Mass/Vol] 1.93 mg/dL High 0.70-1.30 [facility] Comment on above: Performed By: #### Kelly Simon, HEPATIC, MG ####[facility] [id number] [place], ESTIMATED GFR (CKD-EPI) 43 mL/min/1.73sqm Low >=60 [facility] Comment on above: Result Comment: 2020 CKD EPI Equation using Creatinine without RaceComment: Estimated glomerular filtration rate (eGFR) is calculated without a race coefficient. Values should be interpreted in the context of the patient's full clinical presentation.Reference:1. Berny C, Melonie M, Alecia DC, et al.. A Unifying Approach for GFR Estimation: Recommendations of the NKF-ASN Task Force on Reassessing the Inclusion of Race in Diagnosing Kidney Disease. [place] Journal of Kidney Diseases 2021;79(2):268-88.e1.2. N Engl J Med 1 Vol. 385 Issue 19 Pages 3330-0849 Performed By: #### Kelly H8, HEPATIC, MG ####[facility] [id number] [place], Glucose [Mass/Vol] 133 mg/dL High 74-109 [facility] Comment on above: Performed By: #### Kelly Simon, HEPATIC, MG ####[facility] [id number] [place], Potassium [Moles/Vol] 3.8 mmol/L Normal 3.5-5.0 [facility] [employer] [facility] Comment on above: Performed By: #### Kelly H8, HEPATIC, MG ####[facility] [id number] [place], Sodium [Moles/Vol] 140 mmol/L Normal 136-145 The [facility] [facility] Comment on above: Performed By: #### Kelly H8, HEPATIC, MG ####[facility] [id number] [place], Urea nitrogen [Mass/Vol] 44 mg/dL High 7-25 [facility] Comment on above: Performed By: #### Kelly H8, HEPATIC, MG ####[facility] [id number] [place], CBC WITH DIFFERENTIALon 03-1 Basophils (Bld) [#/Vol] 0.03 10*3/uL Normal 0.00-0.20 [facility] Comment on above: Performed By: #### C BCDSAT ####[facility] [id number] [place], Basophils/100 WBC (Bld) 0.3 % Normal <=1.9 [facility] Comment on above: Performed By: #### C BCDSAT ####[facility] PATHOLOGY [id number] [place], Eosinophils (Bld) [#/Vol] 0.06 10*3/uL Normal 0.00-0.70 [facility] [place] Comment on above: Performed By: #### C BCDSAT ####[facility] PATHOLOGY [id number] [place], Eosinophils/100 WBC (Bld) 0.8 % Normal 0.1-4.0 [facility] Comment on above: Performed By: #### C BCDSAT ####[facility] PATHOLOGY [id number] [place], Erythrocyte distribution width (RBC) [Ratio] 13.9 % Normal 11.5-14.5 The [facility] Comment on above: Performed By: #### C BCDSAT ####[facility] PATHOLOGY [id number] [place] [address], Hematocrit (Bld) [Volume fraction] 43.9 % Normal 41.0-53.0 The [facility] Comment on above: Performed By: #### C BCDSAT ####[facility] PATHOLOGY [id number] [place] [address], Hemoglobin (Bld) [Mass/Vol] 14.8 g/dL Normal 13.9-16.3 The [facility] Comment on above: Performed By: #### C BCDSAT ####[facility] PATHOLOGY [id number] [place], Lymphocytes (Bld) [#/Vol] 1.80 10*3/uL Normal 1.00-4.80 The [facility] Comment on above: Performed By: #### C BCDSAT ####[facility] PATHOLOGY [id number] [place], Lymphocytes/100 WBC (Bld) 23.3 % Low 24.0-44.0 [facility] Comment on above: Performed By: #### C BCDSAT ####[facility] PATHOLOGY [id number] [place], MCH (RBC) [Entitic mass] 34.3 pg High 26.0-34.0 [facility] Comment on above: Performed By: #### C BCDSAT ####[facility] PATHOLOGY [id number] [place] [address], MCHC (RBC) [Mass/Vol] 33.7 g/dL Normal 32.0-35.9 [facility] Comment on above: Performed By: #### C GARRETTDSAT ####[facility] PATHOLOGY [id number] [place] [address], MCV (RBC) [Entitic vol] 102 fL High 80-100 [facility] Comment on above: Performed By: #### C GARRETTDSAT ####[facility] PATHOLOGY [id number] [place] [address], Monocytes (Bld) [#/Vol] 0.57 10*3/uL Normal 0.20-1.00 [facility] Comment on above: Performed By: #### Kelly TUCKERDSAT ####[facility] PATHOLOGY [id number] [place] [address], Monocytes/100 WBC (Bld) 7.3 % Normal 2.0-11.0 The [facility] Comment on above: Performed By: #### C GARRETTDSAT ####[facility] PATHOLOGY [id number] [place] [address], Neutrophils (Bld) [#/Vol] 5.27 10*3/uL Normal 1.50-8.00 The [facility] Comment on above: Performed By: #### C BCDSAT ####[facility] PATHOLOGY [id number] [place] [address], Neutrophils/100 WBC (Bld) 68.2 % Normal 31.0-76.0 The [facility] Comment on above: Performed By: #### C BCDSAT ####[facility] PATHOLOGY [id number] [place] [address], Platelet mean volume (Bld) [Entitic vol] 7.4 fL Low 7.5-11.2 [facility] Comment on above: Performed By: #### C BCDSAT ####[facility] PATHOLOGY [id number] [place], Platelets (Bld) [#/Vol] 268 10*3/uL Normal 150-400 [facility] Comment on above: Performed By: #### C BCDSAT ####[facility] PATHOLOGY [id number] [place], RBC (Bld) [#/Vol] 4.31 10*6/uL Low 4.50-5.90 [facility] Comment on above: Performed By: #### C BCDSAT ####[facility] PATHOLOGY [id number] [place] [address], WBC (Bld) [#/Vol] 7.7 10*3/uL Normal 4.5-11.5 [facility] Comment on above: Performed By: #### C BCDSAT ####[facility] PATHOLOGY [id number] [place] [address], Basophils (Bld) [#/Vol] 0.04 10*3/uL Normal 0.00-0.20 [facility] Comment on above: Performed By: #### C BCDSAT ####[facility] PATHOLOGY [id number] [place] [address], Basophils/100 WBC (Bld) 0.6 % Normal <=1.9 [facility] Comment on above: Performed By: #### C BCDSAT ####[facility] PATHOLOGY [id number] [place], Eosinophils (Bld) [#/Vol] 0.04 10*3/uL Normal 0.00-0.70 [facility] Comment on above: Performed By: #### C BCDSAT ####[facility] PATHOLOGY [id number] [place] [address], Eosinophils/100 WBC (Bld) 0.6 % Normal 0.1-4.0 [facility] Comment on above: Performed By: #### C BCDSAT ####[facility] PATHOLOGY [id number] [place], Erythrocyte distribution width (RBC) [Ratio] 13.9 % Normal 11.5-14.5 The [facility] Comment on above: Performed By: #### C BCDSAT ####[facility] PATHOLOGY [id number] [place], Hematocrit (Bld) [Volume fraction] 42.7 % Normal 41.0-53.0 [facility] Comment on above: Performed By: #### C BCDSAT ####[facility] PATHOLOGY [id number] [place], Hemoglobin (Bld) [Mass/Vol] 14.6 g/dL Normal 13.9-16.3 The [facility] Comment on above: Performed By: #### C BCDSAT ####[facility] PATHOLOGY [id number] [place], Lymphocytes (Bld) [#/Vol] 1.71 10*3/uL Normal 1.00-4.80 The [facility] Comment on above: Performed By: #### C BCDSAT ####[facility] PATHOLOGY [id number] [place] [address], Lymphocytes/100 WBC (Bld) 24.1 % Normal 24.0-44.0 [facility] Comment on above: Performed By: #### C BCDSAT ####[facility] PATHOLOGY [id number] [place], MCH (RBC) [Entitic mass] 34.2 pg High 26.0-34.0 The [facility] Comment on above: Performed By: #### C BCDSAT ####[facility] PATHOLOGY [id number] [place] [address], MCHC (RBC) [Mass/Vol] 34.1 g/dL Normal 32.0-35.9 The [facility] Comment on above: Performed By: #### C BCDSAT ####S PATHOLOGY [id number] [place], MCV (RBC) [Entitic vol] 100 fL Normal 80-100 The [facility] Comment on above: Performed By: #### C BCDSAT ####S PATHOLOGY [id number] [place], Monocytes (Bld) [#/Vol] 0.62 10*3/uL Normal 0.20-1.00 [facility] Comment on above: Performed By: #### Kelly HERNANDEZAT ####[facility] PATHOLOGY [id number] [place], Monocytes/100 WBC (Bld) 8.8 % Normal 2.0-11.0 [facility] Comment on above: Performed By: #### Kelly HERNANDEZAT ####[facility] PATHOLOGY [id number] [place] [address], Neutrophils (Bld) [#/Vol] 4.66 10*3/uL Normal 1.50-8.00 [facility] Comment on above: Performed By: #### Kelly HERNANDEZAT ####[facility] PATHOLOGY [id number] [place] [address], Neutrophils/100 WBC (Bld) 66.0 % Normal 31.0-76.0 [facility] Comment on above: Performed By: #### Kelly HERNANDEZAT ####[facility] PATHOLOGY [id number] [place] [address], Platelet mean volume (Bld) [Entitic vol] 7.8 fL Normal 7.5-11.2 [facility] Comment on above: Performed By: #### Kelly HERNANDEZAT ####[facility] PATHOLOGY [id number] [place], Platelets (Bld) [#/Vol] 279 10*3/uL Normal 150-400 [facility] Comment on above: Performed By: #### Kelly HERNANDEZAT ####[facility] PATHOLOGY [id number] [place], RBC (Bld) [#/Vol] 4.26 10*6/uL Low 4.50-5.90 [facility] Comment on above: Performed By: #### Kelly HERNANDEZAT ####[facility] PATHOLOGY [id number] [place], WBC (Bld) [#/Vol] 7.1 10*3/uL Normal 4.5-11.5 [facility] Comment on above: Performed By: #### Kelly HERNANDEZAT ####[facility] [id number] [place], H AND Timo 09-06-2024 Manager Women Authentication Interface Message Text Normal The [facility] HEPATIC FUNCTION PANELon Albumin [Mass/Vol] 3.7 g/dL Normal 3.5-5.7 The [facility] Comment on above: Performed By: #### Kelly Simon, HEPATIC, MG ####[facility] [id number] [place], ALK 224 IU/L High 34-104 [facility] Comment on above: Performed By: #### Kelly Simon, HEPATIC, MG ####[facility] [id number] [place], ALT [Catalytic activity/Vol] 44 U/L Normal 7-52 [facility] Comment on above: Performed By: #### Kelly Simon, HEPATIC, MG ####[facility] [id number] [place], AST [Catalytic activity/Vol] 25 U/L Normal 13-39 [facility] Comment on above: Performed By: #### Kelly Simon, HEPATIC, MG ####[facility] [id number] [place], Bilirubin [Mass/Vol] 2.4 mg/dL High 0.3-1.0 The [facility] Comment on above: Performed By: #### Kelly Simon, HEPATIC, MG ####[facility] [id number] [place], Bilirubin.direct [Mass/Vol] 0.81 mg/dL High 0.03-0.18 The [facility] Comment on above: Performed By: #### Kelly HGissel, HEPATIC, MG ####[facility] [id number] [place], Protein [Mass/Vol] 6.4 g/dL Normal 6.0-8.3 The [facility] Comment on above: Performed By: #### Kelly HGissel, HEPATIC, MG ####[facility] [id number] [place], Albumin [Mass/Vol] 3.6 g/dL Normal 3.5-5.7 The [facility] Comment on above: Performed By: #### Kelly Simon, HEPATIC, MG ####S PATHOLOGY [id number] [place], ALK 233 IU/L High 34-104 [facility] Comment on above: Performed By: #### Kelly Simon, HEPATIC, MG ####S PATHOLOGY [id number] [place], ALT [Catalytic activity/Vol] 46 U/L Normal 7-52 [facility] Comment on above: Performed By: #### Kelly Simon, HEPATIC, MG ####S PATHOLOGY [id number] [place], AST [Catalytic activity/Vol] 25 U/L Normal 13-39 [facility] Comment on above: Performed By: #### Kelly Simon, HEPATIC, MG ####S PATHOLOGY [id number] [place], Bilirubin [Mass/Vol] 2.7 mg/dL High 0.3-1.0 The [facility] Comment on above: Performed By: #### Kelly Simon, HEPATIC, MG ####S PATHOLOGY [id number] [place], Bilirubin.direct [Mass/Vol] 1.04 mg/dL High 0.03-0.18 [facility] Comment on above: Performed By: #### Kelly Simon, HEPATIC, MG ####S PATHOLOGY [id number] [place], Protein [Mass/Vol] 6.4 g/dL Normal 6.0-8.3 The [facility] Comment on above: Performed By: #### Kelly Simon, HEPATIC, MG ####S PATHOLOGY [id number] [place], LACTIC ACIDon 09-06-2024 CR LACT 3.2 mmol/L Critically high 0.5-1.6 The [facility] Comment on above: Order Comment: This test was developed, and its performance characteristics determined by the Department of Pathology of [facility]. It has not been cleared or approved by the FDA. This test is used for clinical purposes only. Performed By: #### L ACT ####S PATHOLOGY [id number] [place], [place], CR LACT 4.3 mmol/L Critically high 0.5-1.6 [facility] Comment on above: Order Comment: This test was developed, and its performance characteristics determined by the Department of Pathology of [facility] [facility]. It has not been cleared or approved by the FDA. This test is used for clinical purposes only. Performed By: #### L ACT ####[facility] PATHOLOG[facility] [id number] [place], [place], CR LACT 3.4 mmol/L Critically high 0.5-1.6 [facility] Comment on above: Order Comment: This test was developed, and its performance characteristics determined by the Department of Pathology of The [facility]. It has not been cleared or approved by the FDA. This test is used for clinical purposes only. Performed By: #### L ACT ####[facility] PATHOLOGY [id number] [place], [place], MAGNESIUMon 09-06-2024 Magnesium [Mass/Vol] 1.4 mg/dL Low 1.9-2.7 [facility] Comment on above: Performed By: #### C H8, HEPATIC, MG ####[facility] PATHOLOGY [id number] [place], Magnesium [Mass/Vol] 1.5 mg/dL Low 1.9-2.7 [facility] Comment on above: Performed By: #### C H8, HEPATIC, MG ####[facility] PATH[facility]Y [id number] [place], PROTHROMBIN TIME AND INRon 0 09-06-2024 INR Coag (PPP) [Relative time] 1.26 {INR} High 0.90-1.10 [facility] Comment on above: Performed By: #### P T ####[facility] PATHOLOGY [id number] [place] [address], PT Coag (PPP) [Time] 14.1 s High 9.7-12.9 The [facility] [facility] Comment on above: Performed By: #### P T ####[facility] [id number] [place], [place], Progress Noteson 09-06-2024 Manager Women Authentication Interface Message Text /GREG Lehman notified of critical lactate value of 3.2. /GREG Lehman read back critical results. New orders not received. Normal The [facility] Manager Women Authentication Interface Message Text Normal The [facility] Manager Women Authentication Interface Message Text Patient refusing dobutamine infusion at this time. Patient educated on importance of medication by RN. Dr Field notified immediately. Normal The [facility] Manager Women Authentication Interface Message Text Normal The [facility] [facility] Manager Women Authentication Interface Message Text Patient refusing iv magnesium states I can't be hooked up to anything for 4 hours ' patient aware of need for med and consequences md aware Normal The [facility] Manager Women Authentication Interface Message Text Normal The [facility] Manager Women Authentication Interface Message Text Dr. Carlson notified of critical lactic acid value of 3.4. Dr. Carlson read back critical results. New orders not received. Normal The [facility] Manager Women Authentication Interface Message Text Normal The [facility] Manager Women Authentication Interface Message Text Normal The [facility] Manager Women Authentication Interface Message Text Patient refusing AM lab draw, stating only one person is able to get him because he is a hard stick, and unfortunately that person is not here right now. This RN asked patient if he would be willing to let her try, Patient stated no. Dr Tia MD notified. Normal The [facility] Transfer Noteon 09-06-2024 Manager Women Authentication Interface Message Text Normal The [facility] BASIC METABOLIC PANELon -0 Anion gap [Moles/Vol] 19 mmol/L Normal 10-20 [facility] Comment on above: Performed By: #### H AUGUSTO DOSHI MG ####[facility] [id number] [place], Calcium [Mass/Vol] 8.6 mg/dL Normal 8.6-10.3 [facility] Comment on above: Performed By: #### H AUGUSTO DOSHI, MG ####[facility] [id number] [place], Chloride [Moles/Vol] 95 mmol/L Low 98-107 [facility] Comment on above: Performed By: #### AUGUSTO GUNDERSON, MG ####[facility] [id number] [place], CO2 [Moles/Vol] 27 mmol/L Normal 21-31 The [facility] Comment on above: Performed By: #### AUGUSTO GUNDERSON, MG ####[facility] [id number] [place], Creatinine [Mass/Vol] 2.40 mg/dL High 0.70-1.30 [facility] Comment on above: Performed By: #### AUGUSTO GUNDERSON, MG ####[facility] [id number] [place], ESTIMATED GFR (CKD-EPI) 33 mL/min/1.73sqm Low >=60 [facility] Comment on above: Result Comment: 2020 CKD EPI Equation using Creatinine without RaceComment: Estimated glomerular filtration rate (eGFR) is calculated without a race coefficient. Values should be interpreted in the context of the patient's full clinical presentation.Reference:1. Berny C, Melonie M, Alecia BABCOCK, et al.. A Unifying Approach for GFR Estimation: Recommendations of the NKF-ASN Task Force on Reassessing the Inclusion of Race in Diagnosing Kidney Disease. [place] Journal of Kidney Diseases 2021;79(2):268-88.e1.2. N Engl J Med 2020 Vol. 385 Issue 19 Pages 8709-8489 Performed By: #### AUGUSTO GUNDERSON, MG ####[facility] [id number] [place], Glucose [Mass/Vol] 151 mg/dL High 74-109 [facility] Comment on above: Performed By: #### AUGUSTO GUNDERSON, MG ####[facility] [id number] [place], Potassium [Moles/Vol] 3.5 mmol/L Normal 3.5-5.0 [facility] Comment on above: Performed By: #### H AUGUSTO DOSHI, MG ####S PATHOLOGY [id number] [place], Sodium [Moles/Vol] 137 mmol/L Normal 136-145 [facility] Comment on above: Performed By: #### AUGUSTO GUNDERSON, MG ####[facility] PATH[facility] [id number] [place], Urea nitrogen [Mass/Vol] 49 mg/dL High 7-25 The [facility] Comment on above: Performed By: #### AUGUSTO GUNDERSON, MG ####[facility] PATH[facility] [id number] [place], CBC WITH DIFFERENTIALon 030 -2024 Basophils (Bld) [#/Vol] 0.03 10*3/uL Normal 0.00-0.20 The [facility] Comment on above: Performed By: #### C BCDSAT ####[facility] PATHOLOGY [id number] [place], Basophils/100 WBC (Bld) 0.5 % Normal <=1.9 The [facility] Comment on above: Performed By: #### C BCDSAT ####[facility] PATHOLOGY [id number] [place], Eosinophils (Bld) [#/Vol] 0.03 10*3/uL Normal 0.00-0.70 The [facility] Comment on above: Performed By: #### Kelly BCDSAT ####[facility] PATHOLOGY [id number] [place] [address], Eosinophils/100 WBC (Bld) 0.4 % Normal 0.1-4.0 The [facility] Comment on above: Performed By: #### C BCDSAT ####[facility] PATHOLOG[facility] [id number] [place], Erythrocyte distribution width (RBC) [Ratio] 13.9 % Normal 11.5-14.5 The [facility] Comment on above: Performed By: #### C BCDSAT ####[facility] PATHOLOGY [id number] [place], Hematocrit (Bld) [Volume fraction] 45.3 % Normal 41.0-53.0 [facility] Comment on above: Performed By: #### C MARYAT ####[facility] PATHOLOGY [id number] [place], Hemoglobin (Bld) [Mass/Vol] 15.4 g/dL Normal 13.9-16.3 [facility] Comment on above: Performed By: #### C MARYAT ####[facility] PATHOLOGY [id number] [place] [address], Lymphocytes (Bld) [#/Vol] 2.21 10*3/uL Normal 1.00-4.80 [facility] Comment on above: Performed By: #### C MARYAT ####[facility] PATHOLOGY [id number] [place] [address], Lymphocytes/100 WBC (Bld) 33.5 % Normal 24.0-44.0 [facility] Comment on above: Performed By: #### Kelly HERNANDEZAT ####[facility] PATHOLOGY [id number] [place] [address], MCH (RBC) [Entitic mass] 34.5 pg High 26.0-34.0 [facility] Comment on above: Performed By: #### C MARYAT ####[facility] PATHOLOGY [id number] [place] [address], MCHC (RBC) [Mass/Vol] 34.0 g/dL Normal 32.0-35.9 [facility] Comment on above: Performed By: #### C MARYAT ####[facility] PATHOLOGY [id number] [place] [address], MCV (RBC) [Entitic vol] 102 fL High 80-100 The [facility] Comment on above: Performed By: #### C MARYAT ####[facility] PATHOLOGY [id number] [place] [address], Monocytes (Bld) [#/Vol] 0.64 10*3/uL Normal 0.20-1.00 [facility] Comment on above: Performed By: #### C MARYAT ####[facility] [id number] [place], Monocytes/100 WBC (Bld) 9.7 % Normal 2.0-11.0 The [facility] Comment on above: Performed By: #### Kelly HERNANDEZAT ####[facility] PATHOLOG[facility] [id number] [place], Neutrophils (Bld) [#/Vol] 3.69 10*3/uL Normal 1.50-8.00 The [facility] Comment on above: Performed By: #### C GARRETTDSAT ####[facility] PATHOLOGY [id number] [place], Neutrophils/100 WBC (Bld) 56.0 % Normal 31.0-76.0 The [facility] Comment on above: Performed By: #### C GARRETTDSAT ####[facility] PATHOLOGY [id number] [place], Platelet mean volume (Bld) [Entitic vol] 8.6 fL Normal 7.5-11.2 The [facility] Comment on above: Performed By: #### Kelly HERNANDEZAT ####[facility] PATHOLOG[facility] [id number] [place], Platelets (Bld) [#/Vol] 274 10*3/uL Normal 150-400 [facility] Comment on above: Performed By: #### C MARYAT ####[facility] PATHOLOG[facility] [id number] [place], RBC (Bld) [#/Vol] 4.46 10*6/uL Low 4.50-5.90 [facility] Comment on above: Performed By: #### C MARYAT ####[facility] PATHOLOGY [id number] [place], WBC (Bld) [#/Vol] 6.6 10*3/uL Normal 4.5-11.5 [facility] Comment on above: Performed By: #### Kelly HERNANDEZAT ####[facility] PATHOLOGY [id number] [place], Consultson 09-05-2024 Manager Women Authentication Interface Message Text Normal The [facility] HEPATIC FUNCTION PANELon Albumin [Mass/Vol] 3.8 g/dL Normal 3.5-5.7 [facility] Comment on above: Performed By: #### AUGUSTO GUNDERSON, MG ####S PATHOLOGY [id number] [place], ALK 260 IU/L High 34-104 The [facility] Comment on above: Performed By: #### AUGUSTO GUNDERSON, MG ####S PATHOLOGY [id number] [place], ALT [Catalytic activity/Vol] 52 U/L Normal 7-52 The [facility] Comment on above: Performed By: #### AUGUSTO GUNDERSON, MG ####S PATHOLOGY [id number] [place], AST [Catalytic activity/Vol] 29 U/L Normal 13-39 The [facility] Comment on above: Performed By: #### AUGUSTO GUNDERSON, MG ####[facility] PATHOLOG[facility] [id number] [place], Bilirubin [Mass/Vol] 3.4 mg/dL High 0.3-1.0 The [facility] Comment on above: Performed By: #### AUGUSTO GUNDERSON, MG ####S PATHOLOGY [id number] [place], Bilirubin.direct [Mass/Vol] 1.38 mg/dL High 0.03-0.18 The [facility] Comment on above: Performed By: #### AUGUSTO GUNDERSON, MG ####S PATHOLOGY [id number] [place], Protein [Mass/Vol] 6.7 g/dL Normal 6.0-8.3 The [facility] Comment on above: Performed By: #### AUGUSTO GUNDERSON, MG ####S PATHOLOGY [id number] [place], LACTIC ACIDon 09-05-2024 CR LACT 2.4 mmol/L High 0.5-1.6 [facility] Comment on above: Order Comment: This test was developed, and its performance characteristics determined by the Department of Pathology of The [facility]. It has not been cleared or approved by the FDA. This test is used for clinical purposes only. Performed By: #### L ACT ####[facility] PATHOLOGY [id number] [place], [place], CR LACT 2.7 mmol/L High 0.5-1.6 [facility] Comment on above: Order Comment: This test was developed, and its performance characteristics determined by the Department of Pathology of The [facility]. It has not been cleared or approved by the FDA. This test is used for clinical purposes only. Performed By: #### L ACT ####[facility] PATHOLOGY [id number] [place] [address], MAGNESIUMon 09-05-2024 Magnesium [Mass/Vol] 1.6 mg/dL Low 1.9-2.7 [facility] Comment on above: Performed By: #### H EPATIC, CH8, MG ####[facility] PATHOLOGY [id number] [place] [address], PROTHROMBIN TIME AND INRon 0 09-05-2024 INR Coag (PPP) [Relative time] 1.40 {INR} High 0.90-1.10 [facility] Comment on above: Performed By: #### P T ####[facility] PATHOLOGY [id number] [place] [address], PT Coag (PPP) [Time] 15.7 s High 9.7-12.9 [facility] Comment on above: Performed By: #### P T ####[facility] PATHOLOGY [id number] [place] [address], Progress Noteson 09-05-2024 Manager Women Authentication Interface Message Text Normal [facility] Manager Women Authentication Interface Message Text Normal [facility] Manager Women Authentication Interface Message Text Normal [facility] Manager Women Authentication Interface Message Text Pt refused all AM lab draw Nalini Harp MD notified. Normal [facility] US AORTA IVC + DOPPLER(CLARICE)o n 09-05-2024 US AORTA IVC + DOPPLER(CLARICE) Normal [facility] US KIDNEY+BLADDERon 09-06-19 25 US KIDNEY+BLADDER Normal [facility] ALPHA 1 ANTITRYPSIN QUANTon 09-04-2024 A1A 197 mg/dL Normal 84-218 [facility] Comment on above: Performed By: #### A 1A, HEPATIC ####[facility] PATHOLOG[facility] [id number] [place], ANTIMITOCHONDRIAL SCRN AND T ITon 09-04-2024 ANTI-MITOCHONDRIAL AB Negative Normal Negative [facility] Comment on above: Order Comment: Elect ronically Signed Out by Yobani Yang MD on 09/09/2024.I certify that I personally conducted the diagnostic evaluation of the above specimen(s) and have rendered the final diagnosis(es). Performed By: #### S M NANI S/T, AMA S/T ####[facility] PATH[facility] [id number] [place], BASIC METABOLIC PANELon Anion gap [Moles/Vol] 23 mmol/L High 10-20 [facility] Comment on above: Performed By: #### C H8, MG, CERU ####[facility] PATHOLOG[facility] [id number] [place], Anion gap [Moles/Vol] 21 mmol/L High 10-20 [facility] Comment on above: Performed By: #### H EPATIC, CH8, MG ####[facility] [id number] [place], Calcium [Mass/Vol] 8.7 mg/dL Normal 8.6-10.3 [facility] Comment on above: Performed By: #### Kelly H8, MG, CERU ####S PATHOLOGY [id number] [place], Calcium [Mass/Vol] 9.0 mg/dL Normal 8.6-10.3 [facility] Comment on above: Performed By: #### H EPATIC, CH8, MG ####[facility] [id number] [place], Chloride [Moles/Vol] 99 mmol/L Normal 98-107 [facility] Comment on above: Performed By: #### C H8, MG, CERU ####[facility] [id number] [place], Chloride [Moles/Vol] 96 mmol/L Low 98-107 [facility] Comment on above: Performed By: #### H EPATIC, CH8, MG ####[facility] [id number] [place], CO2 [Moles/Vol] 17 mmol/L Low 21-31 [facility] Comment on above: Performed By: #### C H8, MG, CERU ####[facility] [id number] [place], CO2 [Moles/Vol] 21 mmol/L Normal 21-31 [facility] Comment on above: Performed By: #### H EPATIC, CH8, MG ####[facility] [id number] [place], Creatinine [Mass/Vol] 2.73 mg/dL High 0.70-1.30 [facility] Comment on above: Performed By: #### C H8, MG, CERU ####[facility] [id number] [place], Creatinine [Mass/Vol] 2.60 mg/dL High 0.70-1.30 [facility] Comment on above: Performed By: #### H EPATIC, CH8, MG ####[facility] [id number] [place], ESTIMATED GFR (CKD-EPI) 28 mL/min/1.73sqm Low >=60 [facility] Comment on above: Result Comment: 2020 CKD EPI Equation using Creatinine without RaceComment: Estimated glomerular filtration rate (eGFR) is calculated without a race coefficient. Values should be interpreted in the context of the patient's full clinical presentation.Reference:1. Berny Mendoza, Melonie M, Alecia BABCOCK, et al.. A Unifying Approach for GFR Estimation: Recommendations of the NKF-ASN Task Force on Reassessing the Inclusion of Race in Diagnosing Kidney Disease. [place] Journal of Kidney Diseases 2021;79(2):268-88.e1.2. N Engl J Med 1 Vol. 385 Issue 19 Pages 1746-1632 Performed By: #### MG Deja, ADALI ####[facility] [id number] [place], ESTIMATED GFR (CKD-EPI) 30 mL/min/1.73sqm Low >=60 [facility] Comment on above: Result Comment: 2020 CKD EPI Equation using Creatinine without RaceComment: Estimated glomerular filtration rate (eGFR) is calculated without a race coefficient. Values should be interpreted in the context of the patient's full clinical presentation.Reference:1. Berny C, Melonie M, Alecia DC, et al.. A Unifying Approach for GFR Estimation: Recommendations of the NKF-ASN Task Force on Reassessing the Inclusion of Race in Diagnosing Kidney Disease. [place] Journal of Kidney Diseases 202;79(2):268-88.e1.2. N Engl J Med 1 Vol. 385 Issue 19 Pages 7810-0389 Performed By: #### AUGUSTO GUNDERSON, MG ####[facility] [id number] [place], Glucose [Mass/Vol] 150 mg/dL High 74-109 [facility] Comment on above: Performed By: #### Kelly Simon MG, ADALI ####[facility] [id number] [place], Glucose [Mass/Vol] 129 mg/dL High 74-109 [facility] Comment on above: Performed By: #### AUGUSTO GUNDERSON, MG ####[facility] [id number] [place], Potassium [Moles/Vol] 4.6 mmol/L Normal 3.5-5.0 [facility] Comment on above: Performed By: #### Kelly Simon MG, CERU ####[facility] [id number] [place], Potassium [Moles/Vol] 4.3 mmol/L Normal 3.5-5.0 [facility] Comment on above: Performed By: #### AUGUSTO GUNDERSON, MG ####S PATHOLOGY [id number] [place], Sodium [Moles/Vol] 134 mmol/L Low 136-145 The [facility] Comment on above: Performed By: #### MG Deja, LINDAU ####S PATHOLOGY [id number] [place], Performed By: #### AUGUSTO GUNDERSON MG ####[facility] [id number] [place], Urea nitrogen [Mass/Vol] 51 mg/dL High 7-25 The [facility] Comment on above: Performed By: #### MG Deja, ADALI ####[facility] [id number] [place], Urea nitrogen [Mass/Vol] 52 mg/dL High 7-25 The [facility] Comment on above: Performed By: #### AUGUSTO GUNDERSON MG ####[facility] PATH[facility] [id number] [place], BLOOD CULTUREon 09-04-2024 Bacteria identified Cx Nom (Bld) C BLOOD: No Growth Normal The [facility] Comment on above: Performed By: #### C BLOOD ####[facility] Yjuwyknwl1316 [place], [place] CBC WITH DIFFERENTIALon Basophils (Bld) [#/Vol] 0.05 10*3/uL Normal 0.00-0.20 The [facility] Comment on above: Performed By: #### C BCDSAT ####[facility] PATHOLOG[facility] [id number] [place], Basophils/100 WBC (Bld) 0.7 % Normal <=1.9 The [facility] Comment on above: Performed By: #### C BCDSAT ####S PATHOLOGY [id number] [place], Eosinophils (Bld) [#/Vol] 0.03 10*3/uL Normal 0.00-0.70 The [facility] Comment on above: Performed By: #### C BCDSAT ####S PATHOLOGY [id number] [place], Eosinophils/100 WBC (Bld) 0.4 % Normal 0.1-4.0 [facility] Comment on above: Performed By: #### C BCDSAT ####[facility] PATH[facility] [id number] [place], Erythrocyte distribution width (RBC) [Ratio] 14.2 % Normal 11.5-14.5 [facility] Comment on above: Performed By: #### C BCDSAT ####[facility] PATHOLOG[facility] [id number] [place], Hematocrit (Bld) [Volume fraction] 44.1 % Normal 41.0-53.0 [facility] Comment on above: Performed By: #### C BCDSAT ####[facility] PATH[facility] [id number] [place], Hemoglobin (Bld) [Mass/Vol] 14.7 g/dL Normal 13.9-16.3 [facility] Comment on above: Performed By: #### C BCDSAT ####[facility] PATH[facility] [id number] [place], Lymphocytes (Bld) [#/Vol] 2.23 10*3/uL Normal 1.00-4.80 [facility] Comment on above: Performed By: #### C BCDSAT ####[facility] PATHOLOG[facility] [id number] [place], Lymphocytes/100 WBC (Bld) 31.0 % Normal 24.0-44.0 [facility] Comment on above: Performed By: #### C BCDSAT ####[facility] PATHOLOG[facility] [id number] [place], MCH (RBC) [Entitic mass] 34.5 pg High 26.0-34.0 The [facility] Comment on above: Performed By: #### C BCDSAT ####[facility] PATHOLOGY [id number] [place], MCHC (RBC) [Mass/Vol] 33.4 g/dL Normal 32.0-35.9 The [facility] Comment on above: Performed By: #### C BCDSAT ####[facility] PATHOLOGY [id number] [place], [place], MCV (RBC) [Entitic vol] 103 fL High 80-100 [facility] Comment on above: Performed By: #### C BCDSAT ####[facility] PATHOLOGY [id number] [place], Monocytes (Bld) [#/Vol] 0.67 10*3/uL Normal 0.20-1.00 The [facility] Comment on above: Performed By: #### C BCDSAT ####[facility] PATHOLOGY [id number] [place], Monocytes/100 WBC (Bld) 9.2 % Normal 2.0-11.0 The [facility] Comment on above: Performed By: #### C BCDSAT ####[facility] PATHOLOGY [id number] [place] [address], Neutrophils (Bld) [#/Vol] 4.24 10*3/uL Normal 1.50-8.00 The [facility] Comment on above: Performed By: #### C BCDSAT ####[facility] PATHOLOGY [id number] [place] [address], Neutrophils/100 WBC (Bld) 58.7 % Normal 31.0-76.0 The [facility] Comment on above: Performed By: #### C BCDSAT ####[facility] PATHOLOGY [id number] [place], Platelet mean volume (Bld) [Entitic vol] 8.3 fL Normal 7.5-11.2 The [facility] Comment on above: Performed By: #### C BCDSAT ####[facility] PATHOLOGY [id number] [place], Platelets (Bld) [#/Vol] 226 10*3/uL Normal 150-400 The [facility] Comment on above: Performed By: #### C BCDSAT ####S PATHOLOGY [id number] [place], RBC (Bld) [#/Vol] 4.27 10*6/uL Low 4.50-5.90 [facility] Comment on above: Performed By: #### C BCDSAT ####[facility] PATHOLOGY [id number] [place], WBC (Bld) [#/Vol] 7.2 10*3/uL Normal 4.5-11.5 [facility] Comment on above: Performed By: #### C BCDSAT ####[facility] PATHOLOGY [id number] [place], CERULOPLASMINon 09-04-2024 CERU 48 mg/dL Normal 20-60 [facility] Comment on above: Performed By: #### C H8, MG, CERU ####[facility] PATHOLOGY [id number] [place], [place], Care Plan Noteon 09-04-2024 Manager Women Authentication Interface Message Text Normal [facility] Manager Women Authentication Interface Message Text Normal [facility] Consultson 09-04-2024 Manager Women Authentication Interface Message Text Normal [facility] FENA, BLOODon 09-04-2024 Creatinine [Mass/Vol] 2.71 mg/dL High 0.70-1.30 The [facility] Comment on above: Performed By: #### Сергей ENAB, FEUREAB ####[facility] PATHOLOGY [id number] [place], Sodium [Moles/Vol] 132 mmol/L Low 136-145 [facility] Comment on above: Performed By: #### Сергей ROGERS, FEUREAB ####S PATHOLOGY [id number] [place], FEUREA, BLOODon 09-04-2024 Urea nitrogen [Mass/Vol] 53 mg/dL High 7-25 [facility] Comment on above: Performed By: #### Сергей ROGERS, FEUREAB ####S PATHOLOGY [id number] [place] [address], FRACTIONAL EXCRETION OF SODI UMon 09-04-2024 Creatinine [Mass/Vol] 2.60 mg/dL High 0.70-1.30 The [facility] Comment on above: Order Comment: A res ult of <1% often indicates prerenal cause in the setting of SCHUYLER. >2% usually indicates SCHUYLER from tubular causes. Concurrent use of diuretic therapy may limit the utility of the FENa calculation in patients with prerenal disease. Performed By: #### F FATUMA ODELL\ ####S PATHOLOGY [id number] [place], [place], Order Comment: A res ult of <35% is consistent with prerenal cause of SCHUYLER. >50% is consistent with tubular causes. Use of FEUrea may be more accurate than FENa in detecting prerenal disease in patients concurrently taking diuretics. CREATININE, URINE 143 mg/dL Normal [facility] Comment on above: Order Comment: A res ult of <1% often indicates prerenal cause in the setting of SCHUYLER. >2% usually indicates SCHUYLER from tubular causes. Concurrent use of diuretic therapy may limit the utility of the FENa calculation in patients with prerenal disease. Performed By: #### F FATUMA ODELL\ ####S PATHOLOGY [id number] [place], Order Comment: A res ult of <35% is consistent with prerenal cause of SCHUYLER. >50% is consistent with tubular causes. Use of FEUrea may be more accurate than FENa in detecting prerenal disease in patients concurrently taking diuretics. FRACTIONAL EXCRETION OF SODIUM 0.3 % Normal [facility] Comment on above: Order Comment: A res ult of <1% often indicates prerenal cause in the setting of SCHUYLER. >2% usually indicates SCHUYLER from tubular causes. Concurrent use of diuretic therapy may limit the utility of the FENa calculation in patients with prerenal disease. Performed By: #### F FATUMA ODELL\ ####S PATHOLOGY [id number] [place], NA(FENA,BLOOD) 134 mmol/L Low 136-145 [facility] Comment on above: Order Comment: A res ult of <1% often indicates prerenal cause in the setting of SCHUYLER. >2% usually indicates SCHUYLER from tubular causes. Concurrent use of diuretic therapy may limit the utility of the FENa calculation in patients with prerenal disease. Performed By: #### F FATUMA ODELL\ ####[facility] [id number] [place], Sodium [Moles/Vol] 19 mmol/L Normal [facility] Comment on above: Order Comment: A res ult of <1% often indicates prerenal cause in the setting of SCHUYLER. >2% usually indicates SCHUYLER from tubular causes. Concurrent use of diuretic therapy may limit the utility of the FENa calculation in patients with prerenal disease. Performed By: #### F FATUMA ODELL\ ####S PATHOLOGY [id number] [place], FRACTIONAL EXCRETION OF UREA on 09-04-2024 FRACTIONAL EXCRETION OF UREA 23 % Normal [facility] Comment on above: Order Comment: A res ult of <35% is consistent with prerenal cause of SCHUYLER. >50% is consistent with tubular causes. Use of FEUrea may be more accurate than FENa in detecting prerenal disease in patients concurrently taking diuretics. Performed By: #### F FATUMA ODELL\ ####S PATHOLOGY [id number] [place], UREA NITROGEN, URINE 666 mg/dL Normal [facility] Comment on above: Order Comment: A res ult of <35% is consistent with prerenal cause of SCHUYLER. >50% is consistent with tubular causes. Use of FEUrea may be more accurate than FENa in detecting prerenal disease in patients concurrently taking diuretics. Performed By: #### F FATUMA ODELL\ ####S PATHOLOGY [id number] [place], UREA(BLOOD) 52 mg/dL High 8-22 [facility] Comment on above: Order Comment: A res ult of <35% is consistent with prerenal cause of SCHUYLER. >50% is consistent with tubular causes. Use of FEUrea may be more accurate than FENa in detecting prerenal disease in patients concurrently taking diuretics. Performed By: #### F FATUMA ODELL\ ####[facility] [id number] [place], HEPATIC FUNCTION PANELon Albumin [Mass/Vol] 3.8 g/dL Normal 3.5-5.7 The [facility] Comment on above: Performed By: #### Keyon 1A, HEPATIC ####[facility] [id number] [place], Albumin [Mass/Vol] 4.0 g/dL Normal 3.5-5.7 The [facility] Comment on above: Performed By: #### AUGUSTO GUNDERSON, MG ####[facility] [id number] [place], ALK 269 IU/L High 34-104 [facility] Comment on above: Performed By: #### Keyon Bird, HEPATIC ####[facility] [id number] [place], ALK 304 IU/L High 34-104 [facility] Comment on above: Performed By: #### AUGUSTO GUNDERSON, MG ####[facility] [id number] [place], ALT [Catalytic activity/Vol] 57 U/L High 7- [facility] Comment on above: Performed By: #### Keyon Bird, HEPATIC ####[facility] [id number] [place], ALT [Catalytic activity/Vol] 62 U/L High 7-52 [facility] Comment on above: Performed By: #### AUGUSTO GUNDERSON, MG ####[facility] [id number] [place], AST [Catalytic activity/Vol] 64 U/L High 13-39 The [facility] Comment on above: Result Comment: Hemo lysis present Performed By: #### Keyon Bird, HEPATIC ####[facility] [id number] [place], AST [Catalytic activity/Vol] 53 U/L High 1339 [facility] Comment on above: Performed By: #### AUGUSTO GUNDERSON, MG ####[facility] [id number] [place], Bilirubin [Mass/Vol] 3.5 mg/dL High 0.3-1.0 [facility] Comment on above: Performed By: #### A 1A, HEPATIC ####[facility] [id number] [place], Bilirubin [Mass/Vol] 3.9 mg/dL High 0.3-1.0 [facility] Comment on above: Performed By: #### H FERNANDO DOSHI8, MG ####[facility] [id number] [place], Bilirubin.direct [Mass/Vol] 1.03 mg/dL High 0.03-0.18 [facility] Comment on above: Performed By: #### A 1A, HEPATIC ####S PATHOLOGY [id number] [place], Bilirubin.direct [Mass/Vol] 1.61 mg/dL High 0.03-0.18 [facility] Comment on above: Performed By: #### H FERNANDO DOSHI8, MG ####[facility] [id number] [place], Protein [Mass/Vol] 6.6 g/dL Normal 6.0-8.3 [facility] Comment on above: Performed By: #### A 1A, HEPATIC ####S PATHOLOGY [id number] [place], Protein [Mass/Vol] 7.1 g/dL Normal 6.0-8.3 [facility] Comment on above: Performed By: #### H FERNANDO DOSHI8, MG ####S PATHOLOGY [id number] [place], HIGH SENSITIVITY TROPONIN Io n 09-04-2024 HS TROPONIN I 38 ng/L High <=15 The [facility] Comment on above: Order Comment: [place] monalisa troponin can result from acute myocardial infarction (coronary etiology) or myocardial injury (non-coronary etiology) - always consider both.Interval test times for ruling out acute coronary syndrome (ACS) are 2 hours.All results are reported in whole numbers representing ng/L. Results obtained by different labs or methods are not comparable.For ruling out ACS, lab values are always used in conjunction with clinical risk assessment (e.g., HEART score*).Interpreting initial value in ruling out ACSLess than 5 ng/L - below lower limit of quantification - essentially rules out ACS if chest pain began more than 3 hours prior to test and assessed risk is low.5 - 49 ng/L - indeterminate - consider repeat value in 2 hours depending on risk assessment.50 ng/L or greater - concern for ACS or myocardial injury.Interpreting delta values in ruling out ACS.Always compare to initial value obtained:Absolute change (rise or fall) of less than 5 ng/L - essentially rules out ACS if assessed clinical risk is low.Absolute change (rise or fall) of 5 - 19 ng/L - indeterminate - consider another repeat value in 2 hours depending on assessed clinical risk.Absolute change (rise or fall) of 20 ng/L or greater - concern for ACS or myocardial injury.Any absolute value of 50 ng/L or greater - concern for ACS or myocardial injury.*When using hsTnI to calculate the HEART score, use the 99% Upper Reference Limit of 15 ng/L as the normal limit (i.e. <=15 ng/L = 0 points, 16-45 ng/L = 1 point, >45 ng/L = 2 points).DispositionIntermediate hsTnI values DO NOT mandate admission to a cardiology or telemetry unit. They need to be interpreted within the clinical context using provider judgement. Performed By: #### H STRP ####[facility] PATHOLOGY [id number] [place], LACTIC ACIDon 09-04-2024 CR LACT 2.6 mmol/L High 0.5-1.6 [facility] Comment on above: Order Comment: This test was developed, and its performance characteristics determined by the Department of Pathology of [facility]. It has not been cleared or approved by the FDA. This test is used for clinical purposes only. Performed By: #### L ACT ####[facility] PATHOLOGY [id number] [place], MAGNESIUMon 09-04-2024 Magnesium [Mass/Vol] 1.9 mg/dL Normal 1.9-2.7 [facility] Comment on above: Performed By: #### C H8, MG, CERU ####[facility] PATHOLOGY [id number] [place], Performed By: #### H EPATIC, CH8, MG ####S PATHOLOGY [id number] [place], POTASSIUM, RANDOM URINEon POTASSIUM, URINE 52 mmol/L Normal 10-160 [facility] Comment on above: Performed By: #### K RU, NA RU ####[facility] PATHOLOGY [id number] [place], PROTHROMBIN TIME AND INRon 0 09-04-2024 INR Coag (PPP) [Relative time] 1.39 {INR} High 0.90-1.10 [facility] Comment on above: Performed By: #### P T ####S PATHOLOGY [id number] [place], PT Coag (PPP) [Time] 15.6 s High 9.7-12.9 [facility] Comment on above: Performed By: #### P T ####[facility] PATHOLOGY [id number] [place] [address], Progress Noteson 09-04-2024 Manager Women Authentication Interface Message Text Pt refused 2100 lab draw Nalini Harp MD notified. Normal [facility] Manager Women Authentication Interface Message Text Normal The [facility] SMOOTH MUSC ATB SCRN AND TIT [employer] 09-04-2024 ANTI-SMA SCREEN Negative Normal Negative [facility] Comment on above: Order Comment: Negat dai SMA test does not exclude the possibility of chronic liver disease. .I certify that I personally conducted the diagnostic evaluation of the above specimen(s) and have rendered the final diagnosis(es). Performed By: #### S M MU S/T, AMA S/T ####S PATHOLOGY [id number] [place], SODIUM, RANDOM URINEon 09-04 Sodium (U) [Moles/Vol] 20 mmol/L Normal [facility] Comment on above: Performed By: #### K RU, NA RU ####S PATHOLOGY [id number] [place], URINALYSIS WITH REFLEX CULTU RE PERFORMABLEon 09-04-2024 Glucose Ql (U) Negative Normal Negative [facility] Comment on above: Order Comment: A neg ative leukocyte esterase AND negative nitrite test or absence of pyuria (urine WBC count <= 5-10) make a UTI (urinary tract infection) very unlikely in a non-neutropenic adult (<=5% likelihood in many studies). A positive leukocyte esterase, nitrite and/or pyuria is a nonspecific result. This can be seen in conditions other than a UTI e.g. asymptomatic bacteriuria, gynecologic infections, sexually transmitted infections, and noninfectious conditions (positive predictive value for UTI around 50%) Performed By: #### u rinalysiswcul ####S PATHOLOGY [id number] [place], U APPEAR Clear Normal Clear [facility] Comment on above: Order Comment: A neg ative leukocyte esterase AND negative nitrite test or absence of pyuria (urine WBC count <= 5-10) make a UTI (urinary tract infection) very unlikely in a non-neutropenic adult (<=5% likelihood in many studies). A positive leukocyte esterase, nitrite and/or pyuria is a nonspecific result. This can be seen in conditions other than a UTI e.g. asymptomatic bacteriuria, gynecologic infections, sexually transmitted infections, and noninfectious conditions (positive predictive value for UTI around 50%) Performed By: #### u rinalysiswcul ####S PATHOLOGY [id number] [place], U BILI Negative Normal Negative [facility] Comment on above: Order Comment: A neg ative leukocyte esterase AND negative nitrite test or absence of pyuria (urine WBC count <= 5-10) make a UTI (urinary tract infection) very unlikely in a non-neutropenic adult (<=5% likelihood in many studies). A positive leukocyte esterase, nitrite and/or pyuria is a nonspecific result. This can be seen in conditions other than a UTI e.g. asymptomatic bacteriuria, gynecologic infections, sexually transmitted infections, and noninfectious conditions (positive predictive value for UTI around 50%) Performed By: #### u rinalysiswcul ####S PATHOLOGY [id number] [place], U BLOOD Negative Normal Negative [facility] Comment on above: Order Comment: A neg ative leukocyte esterase AND negative nitrite test or absence of pyuria (urine WBC count <= 5-10) make a UTI (urinary tract infection) very unlikely in a non-neutropenic adult (<=5% likelihood in many studies). A positive leukocyte esterase, nitrite and/or pyuria is a nonspecific result. This can be seen in conditions other than a UTI e.g. asymptomatic bacteriuria, gynecologic infections, sexually transmitted infections, and noninfectious conditions (positive predictive value for UTI around 50%) Performed By: #### u rinalysiswcul ####S PATHOLOGY [id number] [place], U COLOR Light Yellow Normal Colorless The [facility] Comment on above: Order Comment: A neg ative leukocyte esterase AND negative nitrite test or absence of pyuria (urine WBC count <= 5-10) make a UTI (urinary tract infection) very unlikely in a non-neutropenic adult (<=5% likelihood in many studies). A positive leukocyte esterase, nitrite and/or pyuria is a nonspecific result. This can be seen in conditions other than a UTI e.g. asymptomatic bacteriuria, gynecologic infections, sexually transmitted infections, and noninfectious conditions (positive predictive value for UTI around 50%) Performed By: #### u rinalysiswcul ####S PATHOLOGY [id number] [place], U KETONE Negative Normal Negative The [facility] Comment on above: Order Comment: A neg ative leukocyte esterase AND negative nitrite test or absence of pyuria (urine WBC count <= 5-10) make a UTI (urinary tract infection) very unlikely in a non-neutropenic adult (<=5% likelihood in many studies). A positive leukocyte esterase, nitrite and/or pyuria is a nonspecific result. This can be seen in conditions other than a UTI e.g. asymptomatic bacteriuria, gynecologic infections, sexually transmitted infections, and noninfectious conditions (positive predictive value for UTI around 50%) Performed By: #### u rinalysiswcul ####[facility] [id number] [place], U LEUK Negative Normal Negative [facility] Comment on above: Order Comment: A neg ative leukocyte esterase AND negative nitrite test or absence of pyuria (urine WBC count <= 5-10) make a UTI (urinary tract infection) very unlikely in a non-neutropenic adult (<=5% likelihood in many studies). A positive leukocyte esterase, nitrite and/or pyuria is a nonspecific result. This can be seen in conditions other than a UTI e.g. asymptomatic bacteriuria, gynecologic infections, sexually transmitted infections, and noninfectious conditions (positive predictive value for UTI around 50%) Performed By: #### u rinalysiswcul ####S PATHOLOGY [id number] [place], [place] NITRITE Negative Normal Negative [facility] Comment on above: Order Comment: A neg ative leukocyte esterase AND negative nitrite test or absence of pyuria (urine WBC count <= 5-10) make a UTI (urinary tract infection) very unlikely in a non-neutropenic adult (<=5% likelihood in many studies). A positive leukocyte esterase, nitrite and/or pyuria is a nonspecific result. This can be seen in conditions other than a UTI e.g. asymptomatic bacteriuria, gynecologic infections, sexually transmitted infections, and noninfectious conditions (positive predictive value for UTI around 50%) Performed By: #### u rinalysiswcul ####[facility] PATHOLOGY [id number] [place], U PH 5.5 Normal 5.0-8.0 [facility] Comment on above: Order Comment: A neg ative leukocyte esterase AND negative nitrite test or absence of pyuria (urine WBC count <= 5-10) make a UTI (urinary tract infection) very unlikely in a non-neutropenic adult (<=5% likelihood in many studies). A positive leukocyte esterase, nitrite and/or pyuria is a nonspecific result. This can be seen in conditions other than a UTI e.g. asymptomatic bacteriuria, gynecologic infections, sexually transmitted infections, and noninfectious conditions (positive predictive value for UTI around 50%) Performed By: #### u rinalysiswcul ####S PATHOLOGY [id number] [place], U PROTEIN Negative Normal Negative [facility] Comment on above: Order Comment: A neg ative leukocyte esterase AND negative nitrite test or absence of pyuria (urine WBC count <= 5-10) make a UTI (urinary tract infection) very unlikely in a non-neutropenic adult (<=5% likelihood in many studies). A positive leukocyte esterase, nitrite and/or pyuria is a nonspecific result. This can be seen in conditions other than a UTI e.g. asymptomatic bacteriuria, gynecologic infections, sexually transmitted infections, and noninfectious conditions (positive predictive value for UTI around 50%) Performed By: #### u rinalysiswcul ####S PATHOLOGY [id number] [place], U SG 1.008 Normal <=1.030 [facility] Comment on above: Order Comment: A neg ative leukocyte esterase AND negative nitrite test or absence of pyuria (urine WBC count <= 5-10) make a UTI (urinary tract infection) very unlikely in a non-neutropenic adult (<=5% likelihood in many studies). A positive leukocyte esterase, nitrite and/or pyuria is a nonspecific result. This can be seen in conditions other than a UTI e.g. asymptomatic bacteriuria, gynecologic infections, sexually transmitted infections, and noninfectious conditions (positive predictive value for UTI around 50%) Performed By: #### u rinalysiswcul ####[facility] PATHOLOGY [id number] [place], [place] UROBILI Negative Normal Negative [facility] Comment on above: Order Comment: A neg ative leukocyte esterase AND negative nitrite test or absence of pyuria (urine WBC count <= 5-10) make a UTI (urinary tract infection) very unlikely in a non-neutropenic adult (<=5% likelihood in many studies). A positive leukocyte esterase, nitrite and/or pyuria is a nonspecific result. This can be seen in conditions other than a UTI e.g. asymptomatic bacteriuria, gynecologic infections, sexually transmitted infections, and noninfectious conditions (positive predictive value for UTI around 50%) Performed By: #### u rinalysiswcul ####S PATHOLOGY [id number] [place], XR CHEST AP OR PA 1 VIEWon 0 09-04-2024 XR CHEST AP OR PA 1 VIEW Normal [facility] Progress Noteson 09-03-2024 Manager Women Authentication Interface Message Text Normal [facility] Manager Women Authentication Interface Message Text Normal [facility] Manager Women Authentication Interface Message Text Normal [facility] BASIC METABOLIC PANELon Anion gap [Moles/Vol] 19 mmol/L Normal 10-20 [facility] Comment on above: Performed By: #### C H8, HEPATIC, MG ####[facility] [id number] [place], Calcium [Mass/Vol] 8.8 mg/dL Normal 8.6-10.3 [facility] Comment on above: Performed By: #### Kelly H8, HEPATIC, MG ####[facility] [id number] [place], Chloride [Moles/Vol] 100 mmol/L Normal 98-107 [facility] Comment on above: Performed By: #### Kelly H8, HEPATIC, MG ####[facility] [id number] [place], CO2 [Moles/Vol] 22 mmol/L Normal 21-31 [facility] [employer] [facility] Comment on above: Performed By: #### C H8, HEPATIC, MG ####[facility] [id number] [place], Creatinine [Mass/Vol] 2.25 mg/dL High 0.70-1.30 [facility] Comment on above: Performed By: #### C H8, HEPATIC, MG ####[facility] [id number] [place], ESTIMATED GFR (CKD-EPI) 36 mL/min/1.73sqm Low >=60 The [facility] Comment on above: Result Comment: 2020 CKD EPI Equation using Creatinine without RaceComment: Estimated glomerular filtration rate (eGFR) is calculated without a race coefficient. Values should be interpreted in the context of the patient's full clinical presentation.Reference:1. Berny C, Melonie M, Alecia DC, et al.. A Unifying Approach for GFR Estimation: Recommendations of the NKF-ASN Task Force on Reassessing the Inclusion of Race in Diagnosing Kidney Disease. [place] Journal of Kidney Diseases 2021;79(2):268-88.e1.2. N Engl J Med 2020 Vol. 385 Issue 19 Pages 6591-8762 Performed By: #### Kelly H8, HEPATIC, MG ####[facility] [id number] [place], Glucose [Mass/Vol] 100 mg/dL Normal 74-109 [facility] Comment on above: Performed By: #### Kelly HGissel, HEPATIC, MG ####[facility] [id number] [place], Potassium [Moles/Vol] 4.5 mmol/L Normal 3.5-5.0 [facility] Comment on above: Performed By: #### Kelly H8, HEPATIC, MG ####[facility] [id number] [place], Sodium [Moles/Vol] 136 mmol/L Normal 136-145 [facility] Comment on above: Performed By: #### Kelly H8, HEPATIC, MG ####[facility] [id number] [place], Urea nitrogen [Mass/Vol] 43 mg/dL High 7-25 [facility] Comment on above: Performed By: #### Kelly H8, HEPATIC, MG ####[facility] [id number] [place], CBC WITH DIFFERENTIALon 03-0 Basophils (Bld) [#/Vol] 0.05 10*3/uL Normal 0.00-0.20 [facility] Comment on above: Performed By: #### C BCDSAT ####[facility] [id number] [place], Basophils/100 WBC (Bld) 0.6 % Normal <=1.9 [facility] Comment on above: Performed By: #### C BCDSAT ####[facility] [id number] [place], Eosinophils (Bld) [#/Vol] 0.04 10*3/uL Normal 0.00-0.70 [facility] Comment on above: Performed By: #### C MARYAT ####[facility] PATHOLOGY [id number] [place], Eosinophils/100 WBC (Bld) 0.6 % Normal 0.1-4.0 [facility] Comment on above: Performed By: #### C MARYAT ####[facility] PATHOLOGY [id number] [place] [address], Erythrocyte distribution width (RBC) [Ratio] 13.5 % Normal 11.5-14.5 [facility] [place] Comment on above: Performed By: #### C MARYAT ####[facility] PATHOLOGY [id number] [place] [address], Hematocrit (Bld) [Volume fraction] 43.7 % Normal 41.0-53.0 The [facility], [place] Comment on above: Performed By: #### C MRAYAT ####[facility] PATHOLOGY [id number] [place] [address], Hemoglobin (Bld) [Mass/Vol] 14.7 g/dL Normal 13.9-16.3 The [facility] [place] Comment on above: Performed By: #### Kelly HERNANDEZAT ####[facility] PATHOLOGY [id number] [place] [address], Lymphocytes (Bld) [#/Vol] 2.52 10*3/uL Normal 1.00-4.80 [facility] [place] Comment on above: Performed By: #### C MARYAT ####[facility] PATHOLOGY [id number] [place] [address], Lymphocytes/100 WBC (Bld) 32.6 % Normal 24.0-44.0 The [facility] Comment on above: Performed By: #### C MARYAT ####[facility] PATHOLOGY [id number] [place], MCH (RBC) [Entitic mass] 34.4 pg High 26.0-34.0 The [facility] Comment on above: Performed By: #### Kelly HERNANDEZAT ####[facility] PATHOLOGY [id number] [place] [address], MCHC (RBC) [Mass/Vol] 33.8 g/dL Normal 32.0-35.9 [facility] Comment on above: Performed By: #### Kelly HERNANDEZAT ####[facility] PATHOLOGY [id number] [place], MCV (RBC) [Entitic vol] 102 fL High 80-100 [facility] Comment on above: Performed By: #### Kelly HERNANDEZAT ####[facility] PATHOLOGY [id number] [place], Monocytes (Bld) [#/Vol] 0.77 10*3/uL Normal 0.20-1.00 [facility] Comment on above: Performed By: #### Kelly HERNANDEZAT ####[facility] PATHOLOGY [id number] [place], Monocytes/100 WBC (Bld) 9.9 % Normal 2.0-11.0 The [facility] [place] Comment on above: Performed By: #### Kelly HERNANDEZAT ####[facility] PATHOLOGY [id number] [place] [address], Neutrophils (Bld) [#/Vol] 4.35 10*3/uL Normal 1.50-8.00 The [facility] [place] Comment on above: Performed By: #### Kelly HERNANDEZAT ####[facility] PATHOLOGY [id number] [place], Neutrophils/100 WBC (Bld) 56.3 % Normal 31.0-76.0 The [facility] [place] Comment on above: Performed By: #### Kelly BCDSAT ####[facility] PATHOLOGY [id number] [place], Platelet mean volume (Bld) [Entitic vol] 8.6 fL Normal 7.5-11.2 The [facility] [place] Comment on above: Performed By: #### Kelly BCDSAT ####[facility] PATHOLOGY [id number] [place], Platelets (Bld) [#/Vol] 222 10*3/uL Normal 150-400 [facility] Comment on above: Performed By: #### C BCSHEYLAAT ####S PATHOLOGY [id number] [place], RBC (Bld) [#/Vol] 4.29 10*6/uL Low 4.50-5.90 The [facility] Comment on above: Performed By: #### Kelly HERNANDEZAT ####S PATHOLOGY [id number] [place], WBC (Bld) [#/Vol] 7.7 10*3/uL Normal 4.5-11.5 The [facility] Comment on above: Performed By: #### Kelly HERNANDEZAT ####[facility] PATHOLOGY [id number] [place], Consultson 09-02-2024 Manager Women Authentication Interface Message Text Normal [facility] [place] Manager Women Authentication Interface Message Text Normal [facility] [place] Manager Women Authentication Interface Message Text Normal [facility] [place] HEPATIC FUNCTION PANELon Albumin [Mass/Vol] 3.6 g/dL Normal 3.5-5.7 The [facility] [place] Comment on above: Performed By: #### Kelly Simon, HEPATIC, MG ####S PATHOLOGY [id number] [place], ALK 160 IU/L High 34-104 The [facility] Comment on above: Performed By: #### Kelly Simon, HEPATIC, MG ####S PATHOLOGY [id number] [place], ALT [Catalytic activity/Vol] 44 U/L Normal 7-52 The [facility] Comment on above: Performed By: #### Kelly HGissel, HEPATIC, MG ####S PATHOLOGY [id number] [place], AST [Catalytic activity/Vol] 26 U/L Normal 13-39 The [facility] Comment on above: Performed By: #### Kelly H8, HEPATIC, MG ####[facility] [id number] [place], Bilirubin [Mass/Vol] 3.4 mg/dL High 0.3-1.0 The [facility] [place] Comment on above: Performed By: #### Kelly H8, HEPATIC, MG ####S PATHOLOGY [id number] [place], Bilirubin.direct [Mass/Vol] 1.18 mg/dL High 0.03-0.18 The [facility] Comment on above: Performed By: #### Kelly Simon, HEPATIC, MG ####S PATHOLOGY [id number] [place], Protein [Mass/Vol] 6.3 g/dL Normal 6.0-8.3 The [facility] Comment on above: Performed By: #### Kelly HGissel, HEPATIC, MG ####[facility] PATHOLOGY [id number] [place], MAGNESIUMon 09-02-2024 Magnesium [Mass/Vol] 2.1 mg/dL Normal 1.9-2.7 The [facility] Comment on above: Performed By: #### Kelly Simon, HEPATIC, MG ####S PATHOLOGY [id number] [place], PROTHROMBIN TIME AND INRon 0 09-02-2024 INR Coag (PPP) [Relative time] 1.54 {INR} High 0.90-1.10 The [facility] Comment on above: Performed By: #### P T ####S PATHOLOGY [id number] [place] [address], PT Coag (PPP) [Time] 17.2 s High 9.7-12.9 The [facility] Comment on above: Performed By: #### P T ####[facility] PATHOLOGY [id number] [place] [address], Progress Noteson 09-02-2024 Manager Women Authentication Interface Message Text Normal [facility] Manager Women Authentication Interface Message Text Normal [facility] Manager Women Authentication Interface Message Text Normal [facility] US ASCITES SURVEY 4 QUADRANT Son 09-02-2024 US ASCITES SURVEY 4 QUADRANTS Normal [facility] BASIC METABOLIC PANELon Anion gap [Moles/Vol] 19 mmol/L Normal 10-20 The [facility] Comment on above: Performed By: #### C H8, MG ####S PATHOLOGY [id number] [place], Calcium [Mass/Vol] 8.2 mg/dL Low 8.6-10.3 [facility] Comment on above: Performed By: #### C H8, MG ####[facility] [id number] [place], Chloride [Moles/Vol] 103 mmol/L Normal 98-107 [facility] Comment on above: Performed By: #### C H8, MG ####[facility] [id number] [place], CO2 [Moles/Vol] 19 mmol/L Low 21-31 [facility] Comment on above: Performed By: #### Kelly H8, MG ####[facility] [id number] [place], Creatinine [Mass/Vol] 2.04 mg/dL High 0.70-1.30 [facility] Comment on above: Performed By: #### Kelly H8, MG ####S PATHOLOGY [id number] [place], ESTIMATED GFR (CKD-EPI) 40 mL/min/1.73sqm Low >=60 The [employer] [facility] Comment on above: Result Comment: 2020 CKD EPI Equation using Creatinine without RaceComment: Estimated glomerular filtration rate (eGFR) is calculated without a race coefficient. Values should be interpreted in the context of the patient's full clinical presentation.Reference:1. Berny C, Melonie M, Alecia BABCOCK, et al.. A Unifying Approach for GFR Estimation: Recommendations of the NKF-ASN Task Force on Reassessing the Inclusion of Race in Diagnosing Kidney Disease. [place] Journal of Kidney Diseases 2021;79(2):268-88.e1.2. N Engl J Med 1 Vol. 385 Issue 19 Pages 0207-8194 Performed By: #### C H8, MG ####[facility] [id number] [place], Glucose [Mass/Vol] 134 mg/dL High 74-109 The [facility] Comment on above: Performed By: #### Kelly H8, MG ####[facility] [id number] [place], Potassium [Moles/Vol] 4.6 mmol/L Normal 3.5-5.0 The [facility] Comment on above: Result Comment: Hemo lysis present Performed By: #### C H8, MG ####[facility] PATHOLOGY [id number] [place], Sodium [Moles/Vol] 136 mmol/L Normal 136-145 The [facility] Comment on above: Performed By: #### Kelly HGissel, MG ####[facility] PATHOLOGY [id number] [place], Urea nitrogen [Mass/Vol] 34 mg/dL High 7-25 The [facility] Comment on above: Performed By: #### Kelly HGissel, MG ####[facility] PATHOLOGY [id number] [place] [address], CBC WITH DIFFERENTIALon 03-0 -2024 Basophils (Bld) [#/Vol] 0.03 10*3/uL Normal 0.00-0.20 The [facility] Comment on above: Performed By: #### C BCDSAT ####[facility] PATHOLOGY [id number] [place], Basophils/100 WBC (Bld) 0.5 % Normal <=1.9 The [facility] Comment on above: Performed By: #### C BCDSAT ####[facility] PATHOLOGY [id number] [place], Eosinophils (Bld) [#/Vol] 0.03 10*3/uL Normal 0.00-0.70 The [facility] Comment on above: Performed By: #### C BCDSAT ####[facility] PATHOLOGY [id number] [place], Eosinophils/100 WBC (Bld) 0.5 % Normal 0.1-4.0 The [facility] Comment on above: Performed By: #### C BCDSAT ####[facility] PATHOLOGY [id number] [place], Erythrocyte distribution width (RBC) [Ratio] 14.0 % Normal 11.5-14.5 The [facility] Comment on above: Performed By: #### C BCDSAT ####[facility] PATHOLOGY [id number] [place], Hematocrit (Bld) [Volume fraction] 46.1 % Normal 41.0-53.0 The [facility] Comment on above: Performed By: #### C BCDSAT ####[facility] PATHOLOGY [id number] [place] [address], Hemoglobin (Bld) [Mass/Vol] 15.2 g/dL Normal 13.9-16.3 The [facility] Comment on above: Performed By: #### C BCDSAT ####[facility] PATHOLOGY [id number] [place] [address], Lymphocytes (Bld) [#/Vol] 1.72 10*3/uL Normal 1.00-4.80 [facility] [place] Comment on above: Performed By: #### C BCDSAT ####[facility] PATHOLOGY [id number] [place] [address], Lymphocytes/100 WBC (Bld) 28.0 % Normal 24.0-44.0 The [facility] Comment on above: Performed By: #### C BCDSAT ####[facility] PATHOLOGY [id number] [place] [address], MCH (RBC) [Entitic mass] 34.1 pg High 26.0-34.0 The [facility] Comment on above: Performed By: #### C BCDSAT ####[facility] PATHOLOGY [id number] [place] [address], MCHC (RBC) [Mass/Vol] 33.0 g/dL Normal 32.0-35.9 The [facility] Comment on above: Performed By: #### C BCDSAT ####[facility] PATHOLOGY [id number] [place], MCV (RBC) [Entitic vol] 103 fL High 80-100 The [facility] Comment on above: Performed By: #### C BCDSAT ####[facility] PATHOLOGY [id number] [place] [address], Monocytes (Bld) [#/Vol] 0.56 10*3/uL Normal 0.20-1.00 [facility] Comment on above: Performed By: #### Kelly HERNANDEZAT ####[facility] PATHOLOGY [id number] [place], Monocytes/100 WBC (Bld) 9.1 % Normal 2.0-11.0 [facility] Comment on above: Performed By: #### Kelly HERNANDEZAT ####[facility] PATHOLOGY [id number] [place], Neutrophils (Bld) [#/Vol] 3.80 10*3/uL Normal 1.50-8.00 [facility] Comment on above: Performed By: #### Kelly HERNANDEZAT ####[facility] PATHOLOGY [id number] [place] [address], Neutrophils/100 WBC (Bld) 61.9 % Normal 31.0-76.0 [facility] [place] Comment on above: Performed By: #### Kelly HERNANDEZAT ####[facility] PATHOLOGY [id number] [place] [address], Platelet mean volume (Bld) [Entitic vol] 8.2 fL Normal 7.5-11.2 [facility] Comment on above: Performed By: #### Kelly HERNANDEZAT ####[facility] PATHOLOGY [id number] [place] [address], Platelets (Bld) [#/Vol] 198 10*3/uL Normal 150-400 [facility] [place] Comment on above: Performed By: #### Kelly HERNANDEZAT ####[facility] PATHOLOGY [id number] [place], RBC (Bld) [#/Vol] 4.46 10*6/uL Low 4.50-5.90 [facility] Comment on above: Performed By: #### Kelly BCSHEYLAAT ####[facility] PATHOLOGY [id number] [place], WBC (Bld) [#/Vol] 6.1 10*3/uL Normal 4.5-11.5 [facility] Comment on above: Performed By: #### C BCDSAT ####[facility] [id number] [place], Consultson 09-01-2024 Manager Women Authentication Interface Message Text Normal The [facility] ED Noteson 09-01-2024 Manager Women Authentication Interface Message Text Normal The [facility] ED Provider Noteson 09-02-19 Manager Women Authentication Interface Message Text Sign out received at 0700. Briefly this is a 44M PMH HF, CKD, HTN presenting for HF, pending admission. VS reviewed, stable. Labs reviewed, notable for CKD, elevated hepatic enzymes, elevated BNP. Pending admission. Signed out to inpatient team. Normal The [facility] FEUREA, BLOODon 09-01-2024 Creatinine [Mass/Vol] 2.10 mg/dL High 0.70-1.30 [facility] Comment on above: Performed By: #### F EURRONB ####S PATHOLOGY [id number] [place], Urea nitrogen [Mass/Vol] 36 mg/dL High 7-25 The [facility] Comment on above: Performed By: #### F EUREAB ####S PATHOLOGY [id number] [place], FRACTIONAL EXCRETION OF UREA on 09-01-2024 Creatinine [Mass/Vol] 2.04 mg/dL High 0.70-1.30 [facility] Comment on above: Order Comment: A res ult of <35% is consistent with prerenal cause of SCHUYLER. >50% is consistent with tubular causes. Use of FEUrea may be more accurate than FENa in detecting prerenal disease in patients concurrently taking diuretics. Performed By: #### F EUREAU ####[facility] [id number] [place], CREATININE, URINE 16 mg/dL Normal [facility] Comment on above: Order Comment: A res ult of <35% is consistent with prerenal cause of SCHUYLER. >50% is consistent with tubular causes. Use of FEUrea may be more accurate than FENa in detecting prerenal disease in patients concurrently taking diuretics. Performed By: #### F EUREAU ####S PATHOLOGY [id number] [place], FRACTIONAL EXCRETION OF UREA 27 % Normal [facility] Comment on above: Order Comment: A res ult of <35% is consistent with prerenal cause of SCHUYLER. >50% is consistent with tubular causes. Use of FEUrea may be more accurate than FENa in detecting prerenal disease in patients concurrently taking diuretics. Performed By: #### F VOLODYMYRU ####S PATHOLOGY [id number] [place], UREA NITROGEN, URINE 73 mg/dL Normal [facility] Comment on above: Order Comment: A res ult of <35% is consistent with prerenal cause of SCHUYLER. >50% is consistent with tubular causes. Use of FEUrea may be more accurate than FENa in detecting prerenal disease in patients concurrently taking diuretics. Performed By: #### F CASS ####S PATHOLOGY [id number] [place], UREA(BLOOD) 34 mg/dL High 8-22 [facility] Comment on above: Order Comment: A res ult of <35% is consistent with prerenal cause of SCHUYLER. >50% is consistent with tubular causes. Use of FEUrea may be more accurate than FENa in detecting prerenal disease in patients concurrently taking diuretics. Performed By: #### F VOLODYMYRU ####[facility] PATHOLOGY [id number] [place], H AND Timo 09-01-2024 Manager Women Authentication Interface Message Text Normal [facility] Manager Women Authentication Interface Message Text Normal [facility] HIGH SENSITIVITY CARDIAC TRO PONIN I (HS-CTNI) SERIAL TESTING 0HR (BASELINE)on 09-01-2024 HS-CTNI 0 HR (BASELINE) 16 ng/L High <=15 [facility] Comment on above: Order Comment: [place] monalisa troponin can result from acute myocardial infarction (coronary etiology) or myocardial injury (non-coronary etiology) - always consider both.Interval test times for ruling out acute coronary syndrome (ACS) are 2 hours.All results are reported in whole numbers representing ng/L. Results obtained by different labs or methods are not comparable.For ruling out ACS, lab values are always used in conjunction with clinical risk assessment (e.g., HEART score*).Interpreting initial value in ruling out ACSLess than 5 ng/L - below lower limit of quantification - essentially rules out ACS if chest pain began more than 3 hours prior to test and assessed risk is low.5 - 49 ng/L - indeterminate - consider repeat value in 2 hours depending on risk assessment.50 ng/L or greater - concern for ACS or myocardial injury.Interpreting delta values in ruling out ACS.Always compare to initial value obtained:Absolute change (rise or fall) of less than 5 ng/L - essentially rules out ACS if assessed clinical risk is low.Absolute change (rise or fall) of 5 - 19 ng/L - indeterminate - consider another repeat value in 2 hours depending on assessed clinical risk.Absolute change (rise or fall) of 20 ng/L or greater - concern for ACS or myocardial injury.Any absolute value of 50 ng/L or greater - concern for ACS or myocardial injury.*When using hsTnI to calculate the HEART score, use the 99% Upper Reference Limit of 15 ng/L as the normal limit (i.e. <=15 ng/L = 0 points, 16-45 ng/L = 1 point, >45 ng/L = 2 points).DispositionIntermediate hsTnI values DO NOT mandate admission to a cardiology or telemetry unit. They need to be interpreted within the clinical context using provider judgement. Performed By: #### H STRP SERIAL ####[facility] [id number] [place] [place], [id number] MAGNESIUMon 09-01-2024 Magnesium [Mass/Vol] 2.0 mg/dL Normal 1.9-2.7 [facility] Comment on above: Result Comment: Hemo lysis present Performed By: #### C H8, MG ####[facility] [id number] [facility] [place], [address] Progress Noteson 09-01-2024 Manager Women Authentication Interface Message Text Pt refused the labs stating am done for the day . notified Normal [facility] [employer] Authentication Interface Message Text Normal [facility] US LIVER/GALL BLADDER/PANCRE ASon 09-01-2024 US LIVER/GALL BLADDER/PANCREAS Normal [facility] B TYPE NATRIURETIC PEPTIDEon 08-31-2024 Natriuretic peptide B (Bld) [Mass/Vol] 3904.0 pg/mL High <100.0 [facility] Comment on above: Performed By: #### B PL ####[facility] [id number] [place] , [id number] BASIC METABOLIC PANELon 03-0 Anion gap [Moles/Vol] 14 mmol/L Normal 10-20 [facility] Comment on above: Performed By: #### C H8, HEPATIC, LIP ####[facility] [id number] [place], [id number] Calcium [Mass/Vol] 9.5 mg/dL Normal 8.6-10.3 [facility] Comment on above: Performed By: #### C H8, HEPATIC, LIP ####[facility] [id number] [place], [id number] Chloride [Moles/Vol] 100 mmol/L Normal 98-107 [facility] Comment on above: Performed By: #### C H8, HEPATIC, LIP ####[facility] [id number] [place] , [id number] CO2 [Moles/Vol] 29 mmol/L Normal 21-31 [facility] Comment on above: Performed By: #### C H8, HEPATIC, LIP ####[facility] [id number] [place] , [id number] Creatinine [Mass/Vol] 1.93 mg/dL High 0.70-1.30 [facility] Comment on above: Performed By: #### C H8, HEPATIC, LIP ####[facility] [id number] [place], [id number] ESTIMATED GFR (CKD-EPI) 43 mL/min/1.73sqm Low >=60 [facility] Comment on above: Result Comment: 2020 CKD EPI Equation using Creatinine without RaceComment: Estimated glomerular filtration rate (eGFR) is calculated without a race coefficient. Values should be interpreted in the context of the patient's full clinical presentation.Reference:1. Berny Mendoza, Melonie M, Alecia BABCOCK, et al.. A Unifying Approach for GFR Estimation: Recommendations of the NKF-ASN Task Force on Reassessing the Inclusion of Race in Diagnosing Kidney Disease. Dutch Journal of Kidney Diseases 2021;79(2):268-88.e1.2. N Engl J Med 1 Vol. 385 Issue 19 Pages 1577-8013 Performed By: #### C H8, HEPATIC, LIP ####[facility] [id number] [place] , [id number] Glucose [Mass/Vol] 115 mg/dL High 74-109 [facility] Comment on above: Performed By: #### C H8, HEPATIC, LIP ####[facility] [id number] [place] , [id number] Potassium [Moles/Vol] 3.6 mmol/L Normal 3.5-5.0 [facility] Comment on above: Performed By: #### C H8, HEPATIC, LIP ####[facility] [id number] [place] , [id number] Sodium [Moles/Vol] 139 mmol/L Normal 136-145 [facility] Comment on above: Performed By: #### C H8, HEPATIC, LIP ####[facility] [id number] [place] , [id number] Urea nitrogen [Mass/Vol] 34 mg/dL High 7-25 [facility] Comment on above: Performed By: #### C H8, HEPATIC, LIP ####[facility] [id number] [place], [id number] CBC WITH DIFFERENTIALon 03-0 Basophils (Bld) [#/Vol] 0.00 10*3/uL Normal 0.00-0.20 [facility] Comment on above: Performed By: #### C BCDSAT ####[facility] [id number] [place] , [id number] Basophils/100 WBC (Bld) 0.5 % Normal <=1.9 [facility] Comment on above: Performed By: #### C BCDSAT ####[facility] [id number] [place] [id number] Eosinophils (Bld) [#/Vol] 0.00 10*3/uL Normal 0.00-0.70 [facility] Comment on above: Performed By: #### C BCDSAT ####[facility] [id number] [place], [id number] Eosinophils/100 WBC (Bld) 0.3 % Normal 0.1-4.0 [facility] Comment on above: Performed By: #### C BCDSAT ####[facility] [id number] [place], [id number] Erythrocyte distribution width (RBC) [Ratio] 13.9 % Normal 11.5-14.5 [facility] Comment on above: Performed By: #### C BCDSAT ####[address] [place], [id number] Hematocrit (Bld) [Volume fraction] 45.9 % Normal 41.0-53.0 [facility] Comment on above: Performed By: #### C BCDSAT ####[facility] [id number] [place], [id number] Hemoglobin (Bld) [Mass/Vol] 14.9 g/dL Normal 13.9-16.3 [facility] Comment on above: Performed By: #### C BCDSAT ####[facility] [id number] [place], [id number] Lymphocytes (Bld) [#/Vol] 2.20 10*3/uL Normal 1.00-4.80 [facility] Comment on above: Performed By: #### C BCDSAT ####[facility] [id number] [place], [id number] Lymphocytes/100 WBC (Bld) 25.7 % Normal 24.0-44.0 [facility] Comment on above: Performed By: #### C BCDSAT ####[facility] [id number] [place], [id number] MCH (RBC) [Entitic mass] 33.9 pg Normal 26.0-34.0 [facility] Comment on above: Performed By: #### C BCDSAT ####[facility] [id number] [place] , [id number] MCHC (RBC) [Mass/Vol] 32.6 g/dL Normal 32.0-35.9 [facility] Comment on above: Performed By: #### C BCDSAT ####[facility] [id number] [place] , [id number] MCV (RBC) [Entitic vol] 104 fL High 80-100 [facility] Comment on above: Performed By: #### C BCDSAT ####[facility] [id number] [place] , [id number] Monocytes (Bld) [#/Vol] 0.50 10*3/uL Normal 0.20-1.00 [facility] Comment on above: Performed By: #### C BCDSAT ####[facility] [id number] [place] , [id number] Monocytes/100 WBC (Bld) 5.6 % Normal 2.0-11.0 [facility] Comment on above: Performed By: #### C BCDSAT ####[facility] [id number] [place] , [id number] Neutrophils (Bld) [#/Vol] 5.70 10*3/uL Normal 1.50-8.00 [facility] Comment on above: Performed By: #### C BCDSAT ####[facility] [id number] [place] , [id number] Neutrophils/100 WBC (Bld) 67.9 % Normal 31.0-76.0 [facility] Comment on above: Performed By: #### C BCDSAT ####[facility] [id number] [place] , [id number] Nucleated RBC (Bld) [#/Vol] 10*3/uL Normal [facility] Comment on above: Performed By: #### C BCDSAT ####[facility] [id number] [place] , [id number] Nucleated RBC (Bld) [#/Vol] 0.01 10*3/uL Normal [facility] Comment on above: Performed By: #### C BCDSAT ####[facility] [id number] [place] [id number] Platelet mean volume (Bld) [Entitic vol] 8.4 fL Normal 7.5-11.2 [facility] Comment on above: Performed By: #### C BCDSAT ####[facility] [id number] [place], [id number] Platelets (Bld) [#/Vol] 238 10*3/uL Normal 150-400 [facility] Comment on above: Performed By: #### C BCDSAT ####[facility] [id number] [place], [id number] RBC (Bld) [#/Vol] 4.40 10*6/uL Low 4.50-5.90 The [facility] Comment on above: Performed By: #### C BCDSAT ####[facility] [id number] [place], [id number] WBC (Bld) [#/Vol] 8.4 10*3/uL Normal 4.5-11.5 The [facility] Comment on above: Performed By: #### C BCDSAT ####[facility] [id number] [place] [id number] ED Noteson 08-31-2024 Manager Women Authentication Interface Message Text Report given to CRISTINE Valdez Normal [facility] ED Provider Noteson 09-01-19 Manager Women Authentication Interface Message Text Normal [facility] HEPATIC FUNCTION PANELon Albumin [Mass/Vol] 4.2 g/dL Normal 3.5-5.7 The [facility] Comment on above: Performed By: #### C H8, HEPATIC, LIP ####[facility] [id number] [place], [id number] ALK 170 IU/L High 34-104 [facility] Comment on above: Performed By: #### Kelly Simon, HEPATIC, LIP ####[facility] [id number] [place] , [id number] ALT [Catalytic activity/Vol] 53 U/L High 7-52 [facility] Comment on above: Performed By: #### Kelly Simon, HEPATIC, LIP ####[facility] [id number] [place] , [id number] AST [Catalytic activity/Vol] 20 U/L Normal 13-39 [facility] Comment on above: Performed By: #### Kelly Simon, HEPATIC, LIP ####[facility] [id number] [place] , [id number] Bilirubin [Mass/Vol] 3.4 mg/dL High 0.3-1.0 [facility] Comment on above: Performed By: #### Kelly Simon, HEPATIC, LIP ####[facility] [id number] [place] , [id number] Bilirubin.direct [Mass/Vol] 1.30 mg/dL High 0.03-0.18 [facility] Comment on above: Performed By: #### Kelly Simon, HEPATIC, LIP ####[facility] [id number] [place] , [id number] Protein [Mass/Vol] 6.8 g/dL Normal 6.0-8.3 [facility] Comment on above: Performed By: #### Kelly Simon, HEPATIC, LIP ####[facility] [id number] [place] , [id number] LIPASEon 08-31-2024 LIP 9 IU/L Low 11-82 [facility] Comment on above: Performed By: #### Kelly HGissel, HEPATIC, LIP ####[facility] [id number] [place] , [id number] Patient Instructionson 08-31 Manager Women Authentication Interface Message Text Normal [facility] Progress Notes - NoteWritero n 08-31-2024 Manager Women Authentication Interface Message Text Normal [facility] XR CHEST PA+LAT 2 VIEWSon XR CHEST PA+LAT 2 VIEWS Normal [facility] Telephone Encounteron 2024 Manager Women Authentication Interface Message Text Normal [facility] AUTOIMMUNE MULTIPLEX PANELon 08-27-2024 XOCHITL SCREEN Negative Normal Negative The [facility] Comment on above: Order Comment: ds DN A Reference Range:< or = to 4 IU/fZ-Uprahjgs5-5 IU/mL-Indeterminate> or = to 10 IU/mL-Positiveds DNA Reference Range:< or = to 4 IU/aJ-Vmrulsxz5-4 IU/mL-Indeterminate> or = to 10 IU/mL-PositiveA negative screen reflects the following tests as negative-dsDNA Antibody, SS-A Antibody, SS-B Antibody, Centromere Antibody, Hogan Antibody, Hogan/CORONARY CARE UNIT NURSE Antibody, CORONARY CARE UNIT NURSE Antibody, Scleroderma-70 Antibody, MERI-1 Antibody, Ribosomal P Antibody, Chromatin Antibody. Performed By: #### P HOS, FT3, T4 F, VITD25, xochitl ####S PATHOLOGY [id number] [place] [address], BASIC METABOLIC PANELon 08-01 Anion gap [Moles/Vol] 18 mmol/L Normal 10-20 The [facility] Comment on above: Performed By: #### M G, TSH HS, CALEB, SYPTOTALTPPA, 71634-1, VITB12, CH8 ####[facility] [id number] [place], [place], Calcium [Mass/Vol] 9.6 mg/dL Normal 8.6-10.3 The [facility] Comment on above: Performed By: #### M G, TSH HS, CALEB, SYPTOTALTPPA, 13675-9, VITB12, CH8 ####S PATHOLOG[facility] [id number] [place], [place], Chloride [Moles/Vol] 99 mmol/L Normal 98-107 The [facility] Comment on above: Performed By: #### M G, TSH HS, CALEB, SYPTOTALTPPA, 29787-6, VITB12, CH8 ####[facility] [id number] [place], CO2 [Moles/Vol] 30 mmol/L Normal 21-31 [facility] Comment on above: Performed By: #### M G, TSH HS, CALEB, SYPTOTALTPPA, 73202-7, VITB12, CH8 ####[facility] [id number] [place], Creatinine [Mass/Vol] 2.04 mg/dL High 0.70-1.30 [facility] Comment on above: Performed By: #### M G, TSH HS, CALEB, SYPTOTALTPPA, 85424-9, VITB12, CH8 ####[facility] [id number] [place], [place], ESTIMATED GFR (CKD-EPI) 40 mL/min/1.73sqm Low >=60 [facility] Comment on above: Result Comment: 2020 CKD EPI Equation using Creatinine without RaceComment: Estimated glomerular filtration rate (eGFR) is calculated without a race coefficient. Values should be interpreted in the context of the patient's full clinical presentation.Reference:1. Berny C, Melonie M, Alecia DC, et al.. A Unifying Approach for GFR Estimation: Recommendations of the NKF-ASN Task Force on Reassessing the Inclusion of Race in Diagnosing Kidney Disease. Dutch Journal of Kidney Diseases 2021;79(2):268-88.e1.2. N Engl J Med 2020 Vol. 385 Issue 19 Pages 9155-4325 Performed By: #### M G, TSH HS, CALEB, SYPTOTALTPPA, 08165-8, VITB12, CH8 ####S PATHOLOGY [id number] [place], Glucose [Mass/Vol] 110 mg/dL High 74-109 [facility] Comment on above: Performed By: #### M G, TSH HS, CALEB, SYPTOTALTPPA, 05158-6, VITB12, CH8 ####[facility] [id number] [place], Potassium [Moles/Vol] 4.2 mmol/L Normal 3.5-5.0 [facility] Comment on above: Performed By: #### M G, TSH HS, CALEB, SYPTOTALTPPA, 16941-4, VITB12, CH8 ####[facility] [id number] [place], Sodium [Moles/Vol] 143 mmol/L Normal 136-145 The [facility] Comment on above: Performed By: #### M G, TSH HS, CALEB, SYPTOTALTPPA, 47616-6, VITB12, CH8 ####[facility] [id number] [place], Urea nitrogen [Mass/Vol] 51 mg/dL High 7-25 The [facility] Comment on above: Performed By: #### M G, TSH HS, CALEB, SYPTOTALTPPA, 90564-6, VITB12, CH8 ####[facility] [id number] [place], COMPLETE BLOOD COUNTon 08-27 Erythrocyte distribution width (RBC) [Ratio] 13.2 % Normal 11.5-14.5 The [facility] Comment on above: Performed By: #### C BC ####[facility] [id number] [place], Hematocrit (Bld) [Volume fraction] 41.2 % Normal 41.0-53.0 The [facility] Comment on above: Performed By: #### C BC ####[facility] [id number] [place], Hemoglobin (Bld) [Mass/Vol] 13.4 g/dL Low 13.9-16.3 The [facility] Comment on above: Performed By: #### C BC ####[facility] [id number] [place], MCH (RBC) [Entitic mass] 33.5 pg Normal 26.0-34.0 The [facility] Comment on above: Performed By: #### C BC ####[facility] [id number] [place] [address], MCHC (RBC) [Mass/Vol] 32.5 g/dL Normal 32.0-35.9 The [facility] Comment on above: Performed By: #### C BC ####[facility] [id number] [place], MCV (RBC) [Entitic vol] 103 fL High 80-100 The [facility] Comment on above: Performed By: #### C BC ####[facility] [id number] [place], Platelet mean volume (Bld) [Entitic vol] 8.0 fL Normal 7.5-11.2 The [facility] Comment on above: Performed By: #### C BC ####[facility] [id number] [place] [address], Platelets (Bld) [#/Vol] 238 10*3/uL Normal 150-400 The [facility] Comment on above: Performed By: #### C BC ####[facility] [id number] [place] [address], RBC (Bld) [#/Vol] 4.00 10*6/uL Low 4.50-5.90 The [facility] Comment on above: Performed By: #### C BC ####[facility] [id number] [place], WBC (Bld) [#/Vol] 6.6 10*3/uL Normal 4.5-11.5 The [facility] Comment on above: Performed By: #### C BC ####[facility] [id number] [place] [address], FERRITINon 08-27-2024 CALEB 119.2 ng/mL Normal 23.9-336.2 The [facility] Comment on above: Performed By: #### M G, TSH HS, CALEB, SYPTOTALTPPA, 31531-8, VITB12, CH8 ####[facility] [id number] [place], FULL LIPID PROFILEon 025 Cholesterol [Mass/Vol] 204 mg/dL High <200 Th e [facility] Comment on above: Result Comment: Michaela rable: < 200 mg/dLBorderline High: 200-239 mg/dLHigh: > = 240 mg/dL Performed By: #### H EPATIC, FETIBC, HDL ####[facility] [id number] [place], Cholesterol in LDL [Mass/Vol] 162 mg/dL High <100 The [facility] Comment on above: Performed By: #### H EPATIC, FETIBC, HDL ####[facility] [id number] [place], Cholesterol.total/Chol esterol in HDL [Mass ratio] 7.29 {ratio} High <5.00 The [facility] Comment on above: Performed By: #### H EPATIC, FETIBC, HDL ####[facility] [id number] [place], HDL CHOL 28 mg/dL Low >40 The [facility] Comment on above: Performed By: #### H EPATIC, FETIBC, HDL ####[facility] [id number] [place], LDL/HDL 5.79 High <3.57 The [facility] Comment on above: Performed By: #### H EPATIC, FETIBC, HDL ####[facility] [id number] [place], NON-HDL CHOLESTEROL 176 mg/dL High <130 The [facility] Comment on above: Performed By: #### H EPATIC, FETIBC, HDL ####[facility] [id number] [place], Triglyceride [Mass/Vol] 106 mg/dL Normal <150 The [facility] Comment on above: Result Comment: Norm al: < 150 mg/dLBorderline High: 150-199 mg/dLHigh: 200-499 mg/dLVery High: > = 500 mg/dL Performed By: #### H EPATIC, FETIBC, HDL ####[facility] [id number] [place], GC/CHLAMYDIA/TRICHOMONAS AMP LIFICATIONon 08-27-2024 GC/CHLAMYDIA/TRICHOMON AMPLIFICATION CHLAMYDIA AMPLIFICATION: Negative GC AMPLIFICATION: Negative TRICHOMONAS AMPLIFICATION: Negative Normal Negative The [facility] Comment on above: Order Comment: This test is performed using an automated nucleic acid amplification assay ([employer] Performed By: #### G CT ####[facility] Ycbwpzkzq2393 [place], [place] HEPATIC FUNCTION PANELon Albumin [Mass/Vol] 4.1 g/dL Normal 3.5-5.7 The [facility] Comment on above: Performed By: #### H TICO FETIBC, HDL ####S PATHOLOGY [id number] [place], ALK 174 IU/L High 34-104 The [facility] Comment on above: Performed By: #### Bonilla DOSHI FETIBC, HDL ####S PATHOLOGY [id number] [place], ALT [Catalytic activity/Vol] 105 U/L High 7-52 The [facility] Comment on above: Performed By: #### Bonilla DOSHI FETIBC, HDL ####[facility] [id number] [place], AST [Catalytic activity/Vol] 51 U/L High 13-39 The [facility] Comment on above: Performed By: #### Bonilla DOSHI FETIBC, HDL ####S PATHOLOGY [id number] [place], Bilirubin [Mass/Vol] 3.8 mg/dL High 0.3-1.0 The [facility] Comment on above: Performed By: #### Bonilla DOSHI FETIBC, HDL ####S PATHOLOGY [id number] [place], Bilirubin.direct [Mass/Vol] 1.44 mg/dL High 0.03-0.18 The [facility] Comment on above: Performed By: #### Bonilla DOSHI FETIBC, HDL ####S PATHOLOGY [id number] [place], Protein [Mass/Vol] 7.1 g/dL Normal 6.0-8.3 The [facility] Comment on above: Performed By: #### Bonilla DOSHI FETIBC, HDL ####[facility] [id number] [place], HEPATITIS A IGM ANTIBODYon 0 08-27-2024 HEP A IGM Non-Reactive Normal Nonreactive The [facility] Comment on above: Performed By: #### C ORE, ANTI-HBS, HCV, HEP A TOT, HEP A IGM, HBSAG, CORE M ####[facility] [id number] [place] [address], HEPATITIS A TOTAL ANTIBODYon 08-27-2024 HEP A TOT Non-Reactive Normal Nonreactive The [facility] Comment on above: Performed By: #### C ORE, ANTI-HBS, HCV, HEP A TOT, HEP A IGM, HBSAG, CORE M ####[facility] [id number] [place] [address], HEPATITIS B CORE ANTIBODYon 08-27-2024 CORE Non-Reactive Normal Nonreactive The [facility] Comment on above: Performed By: #### C ORE, ANTI-HBS, HCV, HEP A TOT, HEP A IGM, HBSAG, CORE M ####[facility] [id number] [place] [address], HEPATITIS B CORE ANTIBODY IG 08-27-2024 CORE M Non-Reactive Normal Nonreactive The [facility] Comment on above: Performed By: #### C ORE, ANTI-HBS, HCV, HEP A TOT, HEP A IGM, HBSAG, CORE M ####[facility] [id number] [place] [address], HEPATITIS B SURFACE ANTIBODY on 08-27-2024 ANTI-HBS < 3.1 Normal The [facility] Comment on above: Order Comment: Nonre active: Samples < 7.5 mIU/mLReactive: Samples >/= 10.0 mIU/mLThe accepted criteria for immunity to HBV is anti-HBs activity >/= 10 mIU/mL, as defined by the WHO International Reference Preparation. Performed By: #### C ORE, ANTI-HBS, HCV, HEP A TOT, HEP A IGM, HBSAG, CORE M ####[facility] [id number] [place] [address], HEPATITIS B SURFACE ANTIGENo n 08-27-2024 HBSAG Non-Reactive Normal Non-Reactive The [facility] Comment on above: Performed By: #### C ORE, ANTI-HBS, HCV, HEP A TOT, HEP A IGM, HBSAG, CORE M ####[facility] [id number] [place], [place], HEPATITIS C ANTIBODYon 08-27 HCV Non-Reactive Normal Nonreactive The [facility] Comment on above: Performed By: #### C ORE, ANTI-HBS, HCV, HEP A TOT, HEP A IGM, HBSAG, CORE M ####[facility] [id number] [place], HIV 1 and 2 Ab and HIV 1 p24 Ag panel IAon 08-27-2024 HIV AG-AB SCREEN Non-Reactive Normal Non-Reactive The [facility] Comment on above: Order Comment: HIV I nformation: ???[place] Rev. code 3701.243(E):This information has been disclosed to you from confidential records protected from disclosure by state law. ???You shall make no further disclosure of this information without the specific, written, and informed release of the individual to whom it pertains, or as otherwise permitted by state law. ???A general authorization for the release of medical or other information is not sufficient for the purpose of the release of HIV test results or diagnoses. Result Comment: No l aboratory evidence for HIV Infection. Negative result does not rule out acute HIV infection. If acute HIV infection is suspected, recommend ordering an HIV-1 RNA quanitification test. Performed By: #### M G, TSH HS, CALEB, SYPTOTALTPPA, 79985-1, VITB12, CH8 ####[facility] [id number] [place], [place], IRON AND TIBCon 08-27-2024 % SAT CORRECT PRD 14 % Low 20-55 [facility] Comment on above: Performed By: #### H EPATIC, FETIBC, HDL ####[facility] [id number] [place], FE CORRECT PRD 61 ug/dL Normal 50-212 [facility] Comment on above: Performed By: #### H EPATIC, FETIBC, HDL ####[facility] [id number] [place], TIBC CORRECT PRD 430 ug/mL High 250-410 [facility] Comment on above: Performed By: #### H EPATIC, FETIBC, HDL ####[facility] [id number] [place], TRANSFER CORRECT PRD 307 mg/dL Normal 203-362 [facility] Comment on above: Performed By: #### H EPATIC, FETIBC, HDL ####[facility] [id number] [place], MAGNESIUMon 08-27-2024 Magnesium [Mass/Vol] 2.4 mg/dL Normal 1.9-2.7 [facility] Comment on above: Performed By: #### M G, TSH HS, CALEB, SYPTOTALTPPA, 74755-6, VITB12, CH8 ####[facility] [id number] [place] [address], MICROALBUMIN, URINEon 2024 CREATININE, URINE 426 mg/dL Normal [facility] Comment on above: Order Comment: Note updated reference ranges. Performed By: #### U R MA ####[facility] [id number] [place], MICRO-ALBUMIN, URINE 212 mg/L Normal The [facility] Comment on above: Order Comment: Note updated reference ranges. Performed By: #### U R MA ####[facility] [id number] [place] [address], MICRO-ALBUMIN/CREAT RATIO 50 mg/G High <=30 The [facility] Comment on above: Order Comment: Note updated reference ranges. Performed By: #### U R MA ####[facility] [id number] [place], NT PRO-BNPon 08-27-2024 Natriuretic peptide B (Bld) [Mass/Vol] 37348 pg/mL High <=450 [facility] Comment on above: Order Comment: Resul t: <300 pg/mL (All ages).Interpretation: Negative. Heart failure unlikely.Result: 300-450 pg/mL (<50 years), 300-900 pg/mL (50-75 years), 300-1800 pg/mL (>75 years).Interpretation: Indeterminate. Consider other reasons for NT Pro-BNP elevation.Result: >450 pg/mL (<50 years), >900 pg/mL (50-75 years), >1800 pg/mL (>75 years).Interpretation: Positive. Heart failure likely. Performed By: #### N T-PROBNP ####S PATHOLOGY [id number] [place], PHOSPHORUSon 08-27-2024 Phosphate [Mass/Vol] 4.7 mg/dL Normal 2.5-5.0 The [employer] [facility] Comment on above: Performed By: #### P HOS, FT3, T4 F, VITD25, xochitl ####[facility] [id number] [place], [place], Patient Instructionson 08-27 Manager Women Authentication Interface Message Text Normal The [facility] [facility] Progress Noteson 08-27-2024 Manager Women Authentication Interface Message Text Identity was confirmed by verifying patient name and date of . Blood drawn for patient. Blood obtained from right and left hand, using 21 gauge butterfly. Patient denies discomfort, bleeding controlled, bandage applied. Site appears normal. Normal The [facility] [facility] Manager Women Authentication Interface Message Text Identification was verified by patient verbalizing his name and date of . Normal The [employer] [facility] Manager Women Authentication Interface Message Text Normal [facility] SYPHILIS TOTAL/TPPAon 2024 SYPHILIS TOTAL (IGG/IGM) Non-Reactive Normal Non-Reactive [facility] Comment on above: Order Comment: No re sults found for: TPPANo components found for: FTANo serologic evidence of syphilis.If recent exposure/early infection is suspected, repeat testing in 2-4 weeks. Performed By: #### M G, TSH HS, CALEB, SYPTOTALTPPA, 64909-3, VITB12, CH8 ####S PATHOLOGY [id number] [place], TPPA Normal The [employer] [facility] Comment on above: Order Comment: No re sults found for: TPPANo components found for: FTANo serologic evidence of syphilis.If recent exposure/early infection is suspected, repeat testing in 2-4 weeks. Performed By: #### M G, TSH HS, CALEB, SYPTOTALTPPA, 03372-6, VITB12, CH8 ####[facility] [id number] [place], THYROXINE (T4), FREEon 08-27 T4 F 1.40 ng/dL High 0.61-1.12 The [facility] Comment on above: Performed By: #### P HOS, FT3, T4 F, VITD25, xochitl ####[facility] [id number] [place], TRIIODOTHYRONINE (T3), FREEo n 08-27-2024 FT3 2.8 pg/mL Normal 2.5-3.9 [facility] Comment on above: Performed By: #### P HOS, FT3, T4 F, VITD25, xochitl ####[facility] [id number] [place], TSHon 08-27-2024 TSH 0.566 uIU/mL Normal 0.450-5.330 The [facility] Comment on above: Performed By: #### M G, TSH HS, CALEB, SYPTOTALTPPA, 82099-2, VITB12, CH8 ####[facility] [id number] [place], Telephone Encounteron 2024 Manager Women Authentication Interface Message Text Normal The [facility] URINALYSIS,AUTO-IN OFFICEon 08-27-2024 BILIRUBIN, URINE POC Positive Abnormal Negative The [facility] Comment on above: Order Comment: TEST PERFORMED AT:[facility] [place], [place] [address] Performed By: #### 8 1003 ####[facility] Hhtqbewbl3198 [place], [place] BLOOD, URINE POC Trace Abnormal Negative The [facility] Comment on above: Order Comment: TEST PERFORMED AT:[address] [address] Performed By: #### 8 1003 ####[facility] Qsiacankb8597 [place] [address] CLARITY, POC Clear Normal The [facility] Comment on above: Order Comment: TEST PERFORMED AT:[place] [address] Performed By: #### 8 1003 ####[facility] Vhfymbill4201 [place] [id number] COLOR, POC Chaya Normal The [facility] Comment on above: Order Comment: TEST PERFORMED AT:[place] [address] Performed By: #### 8 1003 ####[facility] Hciwlmxgp3589 [place] [id number] GLUCOSE, URINE POC Negative Normal Negative The [facility] Comment on above: Order Comment: TEST PERFORMED AT:[place] [address] Performed By: #### 8 1003 ####[facility] Bqpphfagx4560 [place] [id number] KETONES, URINE POC Trace Abnormal Negative The [facility] Comment on above: Order Comment: TEST PERFORMED AT:[place] [address] Performed By: #### 8 1003 ####[facility] Fhdfafkxz4075 [place] [id number] LEUKOCYTES, URINE POC Negative Normal Negative The [facility] Comment on above: Order Comment: TEST PERFORMED AT:[place] [address] Performed By: #### 8 1003 ####[facility] Hykoizdsg0275 [place] [phone] NITRITES, URINE POC Negative Normal Negative The [facility] Comment on above: Order Comment: TEST PERFORMED AT:[place] [address] Performed By: #### 8 1003 ####[facility] Jhgdcjagj1703 [place] [phone] PH, URINE POC 5.0 Normal 5.0-8.0 The [facility] Comment on above: Order Comment: TEST PERFORMED AT:[place] [address] Performed By: #### 8 1003 ####[facility] Gkwxbjloc5044 [place], [place] PROTEIN, URINE POC 100 Abnormal Negative The [facility] Comment on above: Order Comment: TEST PERFORMED AT:[place] [address] Performed By: #### 8 1003 ####[facility] Mtzviziig2396 [place], [place] SPECIFIC GRAVITY, POC >=1.030 Normal 1.005 - 1.030 The [facility] Comment on above: Order Comment: TEST PERFORMED AT:[place] [address] Performed By: #### 8 1003 ####[facility] Mwogjvdjh0926 [place], [place] UROBILINOGEN, URINE POC 2.0 Abnormal 0.2 - 1.0 The [facility] Comment on above: Order Comment: TEST PERFORMED AT:[place] [address] Performed By: #### 8 1003 ####[facility] Aopwhbgel8343 [place], [place] URINE CULTUREon 08-27-2024 Bacteria identified Cx Nom (U) C URINE: No growth of greater than 1,000 CFU/ml Normal The [facility] Comment on above: Performed By: #### C URINE ####[facility] Fejkzgrhq4879 [place], [place] VITAMIN B12 (CYANOCOBALAMIN) on 08-27-2024 Cobalamin (Vitamin B12) [Mass/Vol] 927 pg/mL High 180-914 The [facility] Comment on above: Order Comment: Defic ient: <= 145 pg/mLInsufficient: 145 - 180 pg/mLSufficient: 180 - 914 pg/mL Performed By: #### M G, TSH HS, CALEB, SYPTOTALTPPA, 20767-1, VITB12, CH8 ####[facility] [id number] [place], VITAMIN D, 25-HYDROXYon - VITD25 13.3 ng/mL Low 30-100 The [facility] Comment on above: Order Comment: Defic ient : <20.0 ng/mLInsufficient : 20.0-29.9 ng/mLSufficient : 30.0 - 100.0 ng/mLPotential Toxicity : >100.0 ng/mL Performed By: #### P HOS, FT3, T4 F, VITD25, xochitl ####[facility] [id number] [place], [address] 36on 08-25-2024 36 Normal [facility] CBC W Auto Differential pane l (Bld)on 08-25-2024 Basophils (Bld) [#/Vol] 0 10*3/uL 0.0 - 0.2 10*3/uL [facility] Basophils/100 WBC (Bld) 0.2 % 0.0 - 2.0 % [facility] Eosinophils (Bld) [#/Vol] 0 10*3/uL 0.0 - 0.5 10*3/uL [facility] Eosinophils/100 WBC (Bld) 0.1 % 0.0 - 6.0 % [facility] Erythrocyte distribution width (RBC) [Ratio] 12.6 % 11.5 - 15.0 % [facility] Hematocrit (Bld) [Volume fraction] 41.3 % 40.0 - 52.0 % [facility] Hemoglobin (Bld) [Mass/Vol] 13.6 g/dL 13.0 - 18.0 g/dL [facility] Immature granulocytes (Bld) [#/Vol] 0 10*3/uL NINF - 0.1 10*3/uL [facility] Immature granulocytes/100 WBC (Bld) 0.2 % 0.0 - 2.0 % [facility] Interpretation and review of laboratory results Abnormal [facility] Lymphocytes (Bld) [#/Vol] 2.4 10*3/uL 1.0 - 4.3 10*3/uL [facility] Lymphocytes/100 WBC (Bld) 29.7 % 15.0 - 45.0 % [facility] MCH (RBC) [Entitic mass] 33.2 pg 26.0 - 34.0 pg [facility] MCHC (RBC) [Mass/Vol] 32.9 % 30.5 - 36.0 % [facility] MCV (RBC) [Entitic vol] 100.7 fL High 77.0 - 99.0 fL [facility] Monocytes (Bld) [#/Vol] 0.7 10*3/uL 0.0 - 0.9 10*3/uL [facility] Monocytes/100 WBC (Bld) 8.2 % 5.0 - 13.0 % [facility] Neutrophils (Bld) [#/Vol] 5.1 10*3/uL 1.8 - 7.5 10*3/uL [facility] Neutrophils/100 WBC (Bld) 61.6 % 38.0 - 82.0 % [facility] Nucleated RBC/100 WBC (Bld) [Ratio] 0 % [facility] Platelet mean volume (Bld) [Entitic vol] 9.5 fL 9.0 - 12.7 fL [facility] Platelets (Bld) [#/Vol] 227 10*3/uL 140 - 440 10*3/uL [facility] RBC (Bld) [#/Vol] 4.1 10*6/uL Low 4.40 - 5.9 0 10*6/uL [facility] WBC (Bld) [#/Vol] 8.2 10*3/uL 3.6 - 10.7 10*3/uL [facility] CBC WITH AUTO DIFFERENTIALon 08-25-2024 Basophils (Bld) [#/Vol] 0.0 10*3/uL Normal 0.0-0.2 [facility] Comment on above: Performed By: #### L [id number] ####Cuff Cutter: LESLEE HERNANDEZ ([id number])[facility] ([facility])[address] [place] [address] Basophils/100 WBC (Bld) 0.2 % Normal 0.0-2.0 [facility] Comment on above: Performed By: #### L [id number] ####Cuff Cutter: LESLEE HERNANDEZ ([id number])[facility] ([facility])[address] [place] [address] Eosinophils (Bld) [#/Vol] 0.0 10*3/uL Normal 0.0-0.5 [facility] Comment on above: Performed By: #### L [id number] ####Cuff Cutter: LESLEE HERNANDEZ ([id number])[facility] ([facility])[address] Eosinophils/100 WBC (Bld) 0.1 % Normal 0.0-6.0 [facility] Comment on above: Performed By: #### L [id number] ####Cuff Cutter: LESLEE HERNANDEZ ([id number])[facility] Erythrocyte distribution width (RBC) [Ratio] 12.6 % Normal 11.5-15.0 [facility] Comment on above: Performed By: #### L [id number] ####Cuff Cutter: LESLEE HERNANDEZ ([id number])[facility] ([facility])[address] [place] [address] Hematocrit (Bld) [Volume fraction] 41.3 % Normal 40.0-52.0 [facility] Comment on above: Performed By: #### L [id number] ####Cuff Cutter: LESLEE HERNANDEZ ([id number])[facility])[address] [place] [address] Hemoglobin (Bld) [Mass/Vol] 13.6 g/dL Normal 13.0-18.0 [facility] Comment on above: Performed By: #### L [id number] ####Cuff Cutter: LESLEE HERNANDEZ ([id number])[facility])[address] IMMATURE GRANS % 0.2 % Normal 0.0-2.0 [facility] Comment on above: Performed By: #### L MQ8975 ####Cuff Cutter: LESLEE HERNANDEZ ([id number])[facility])[address] IMMATURE GRANS ABSOLUTE 0.0 10*3/uL Normal <0.1 [facility] Comment on above: Performed By: #### L [id number] ####Cuff Cutter: LESLEE HERNANDEZ ([id number])[facility] ([facility])[address] Lymphocytes (Bld) [#/Vol] 2.4 10*3/uL Normal 1.0-4.3 [facility] Comment on above: Performed By: #### L [id number] ####Cuff Cutter: LESLEE HERNANDEZ ([id number])[facility] [place] ([facility])[address] Lymphocytes/100 WBC (Bld) 29.7 % Normal 15.0-45.0 [facility] Comment on above: Performed By: #### L HH3630 ####Cuff Cutter: LESLEE HERNANDEZ ([id number])[facility] [place] ([facility])[address] MCH (RBC) [Entitic mass] 33.2 pg Normal 26.0-34.0 [facility] Comment on above: Performed By: #### L [id number] ####Cuff Cutter: LESLEE HERNANDEZ ([id number])[facility] ([facility])[address] MCHC 32.9 % Normal 30.5-36.0 [facility] Comment on above: Performed By: #### L [id number] ####Cuff Cutter: LESLEE HERNANDEZ ([phone])[facility] BARBREHOB[facility] SERVICESN ([facility])[address] MCV (RBC) [Entitic vol] 100.7 fL High 77.0-99.0 [facility] Comment on above: Performed By: #### L [id number] ####Cuff Cutter: LESLEE HERNANDEZ ([id number])[facility] [place] ([facility])[address] [place] [address] [place] Monocytes (Bld) [#/Vol] 0.7 10*3/uL Normal 0.0-0.9 [facility] Comment on above: Performed By: #### L [id number] ####Cuff Cutter: LESLEE HERNANDEZ ([id number])[facility] ([facility])[address] Monocytes/100 WBC (Bld) 8.2 % Normal 5.0-13.0 [facility] Comment on above: Performed By: #### L [id number] ####Cuff Cutter: LESLEE HERNANDEZ ([id number])[facility] [place] ([facility])[address] NEUTROPHILS ABSOLUTE 5.1 10*3/uL Normal 1.8-7.5 [facility] Comment on above: Performed By: #### L [id number] ####Cuff Cutter: LESLEE HERNANDEZ ([id number])[facility] [place] ([facility])[address] Neutrophils/100 WBC (Bld) 61.6 % Normal 38.0-82.0 [facility] Comment on above: Performed By: #### L [id number] ####Cuff Cutter: LESELE HERNANDEZ ([phone])[facility] [place] ([facility])[address] NRBC 0.0 /100 WBCs Normal 0.0-2.0 [facility] Comment on above: Performed By: #### L [id number] ####Cuff Cutter: LESLEE HERNANDEZ ([id number])[facility] [place] ([facility])[address] Platelet mean volume (Bld) [Entitic vol] 9.5 fL Normal 9.0-12.7 [facility] Comment on above: Performed By: #### L [id number] ####Cuff Cutter: LESLEE HERNANDEZ ([id number])[facility] [place] ([facility])[address] [place] [address] [place] Platelets (Bld) [#/Vol] 227 10*3/uL Normal 140-440 [facility] Comment on above: Performed By: #### L [id number] ####Cuff Cutter: LESLEE HERNANDEZ ([id number])[facility] [place] ([facility])[address] RBC (Bld) [#/Vol] 4.10 10*6/uL Low 4.40-5.90 [facility] Comment on above: Performed By: #### L [id number] ####Cuff Cutter: LESLEE HERNANDEZ ([id number])[facility]ILLKeyon KNOTTREHOB[facility] MCK[facility] CARE SERVICESN ([facility])[address] WBC (Bld) [#/Vol] 8.2 10*3/uL Normal 3.6-10.7 [facility] Comment on above: Performed By: #### L [id number] ####Cuff Cutter: LESLEE HERNANDEZ ([id number])[facility] ([facility])[address] COMPREHENSIVE METABOLIC PANE Ming 08-25-2024 Albumin [Mass/Vol] 3.4 g/dL Low 3.5-5.0 [facility] Comment on above: Performed By: #### L AB17, UUY037, [id number] ####Cuff Cutter: LESLEE HERNANDEZ ([id number])[facility]ILL[facility]on [facility] ([facility])[address] ALP [Catalytic activity/Vol] 161 U/L High 40-150 [facility] Comment on above: Performed By: #### L AB17, CNK411, [id number] ####Cuff Cutter: LESLEE HERNANDEZ ([id number])[facility] ([facility])[address] ALT [Catalytic activity/Vol] 110 U/L High <40 [facility] Comment on above: Performed By: #### L AB17, PLX526, [id number] ####Cuff Cutter: LESLEE HERNANDEZ ([id number])[facility] ([facility])[address] Anion gap [Moles/Vol] 14 mmol/L High 3-13 [facility] Comment on above: Performed By: #### L AB17, EDC152, [id number] ####Cuff Cutter: LESLEE TORRESCER ([id number])[facility]ILLKeyon [facility] ([facility])[address] [place] [address] [place] AST [Catalytic activity/Vol] 75 U/L High <34 [facility] Comment on above: Performed By: #### Pedro AB17, EDL946, [id number] ####Cuff Cutter: LESLEE HERNANDEZ ([id number])[facility]ANN ([facility])[address] Bilirubin [Mass/Vol] 3.0 mg/dL High <1.2 [facility] Comment on above: Performed By: #### Pedro JESSICA17, FHY056, [id number] ####Cuff Cutter: LESLEE TURKTYRONE ([id number])[facility]ILL[facility]on [facility] ([facility])[address] Calcium [Mass/Vol] 9.3 mg/dL Normal 8.4-10.2 [facility] Comment on above: Performed By: #### Pedro JESSICA17, OMD200, [id number] ####Cuff Cutter: LESLEE HERNANDEZ ([id number])[facility]ILL[facility]on [facility] ([facility])[address] [place] [address] [place] Chloride [Moles/Vol] 102 mmol/L Normal 98-107 [facility] Comment on above: Performed By: #### Pedro HONEYCUTT, TEJ135, [id number] ####Cuff Cutter: LESLEE HERNANDEZ ([id number])[facility]on KNOTTREHOBOTH MCK[facility] SERVICESN ([facility])[address] [place] [address] [place] CO2 [Moles/Vol] 22 mmol/L Normal 22-29 [facility] Comment on above: Performed By: #### L AB17, QQP958, [id number] ####Cuff Cutter: LESLEE TURKTYRONE ([id number])[facility] [place] ([facility])[address] [place] [address] [place] Creatinine [Mass/Vol] 2.06 mg/dL High 0.72-1.25 [facility] Comment on above: Performed By: #### Pedro AB17, [id number], [id number] ####Cuff Cutter: LESLEE HERNANDEZ ([id number])[facility])[address] GLOMERULAR FILTRATION RATE ML/MIN/1.73 SQ M.PREDICTED 39.5 mL/min/1.73m*2 Low >60.0 [facility] Comment on above: Result Comment: Calc ulation based on the Chronic Kidney Disease Epidemiology Collaboration (CKD-EPI) equation refit without adjustment for race Performed By: #### Pedro JESSICA17, FWN502, [id number] ####Cuff Cutter: LESLEE HERNANDEZ ([id number])[facility] ([facility])[address] [place] [address] Glucose [Mass/Vol] 113 mg/dL High 74-100 [facility] Comment on above: Performed By: #### Pedro HONEYCUTT, QNH298, [id number] ####Cuff Cutter: LESLEE HERNANDEZ ([id number])[facility] ([facility])[address] [place] [address] Potassium [Moles/Vol] 3.9 mmol/L Normal 3.5-5.1 [facility] Comment on above: Result Comment: [facility] Institute potassium values may be up to 0.5 mmol/L lower than serum values. Performed By: #### Pedro HONEYCUTT, [id number], [id number] ####Cuff Cutter: LESLEE HERNANDEZ ([id number])[facility] ([facility])[address] [place] [address] Protein [Mass/Vol] 6.6 g/dL Normal 6.4-8.3 [facility] Comment on above: Performed By: #### Pedro AB17, [id number], [id number] ####Cuff Cutter: LESLEE HERNANDEZ ([id number])[facility] ([facility])[address] [place] [address] Sodium [Moles/Vol] 138 mmol/L Normal 136-145 [facility] Comment on above: Performed By: #### L AB17, [id number], [id number] ####Cuff Cutter: LESLEEFIDELIA HERNANDEZ ([id number])[facility] ([facility])[address] [place] [address] Urea nitrogen [Mass/Vol] 51 mg/dL High 8-21 [facility] Comment on above: Performed By: #### L AB17, [id number], [id number] ####Cuff Cutter: LESLEEFIDELIA HERNANDEZ ([id number])[facility] ([facility])[address] Comprehensive metabolic 1998 panelon 08-25-2024 Albumin [Mass/Vol] 3.4 g/dL Low 3.5 - 5.0 g/dL [facility] ALP [Catalytic activity/Vol] 161 U/L High 40 - 150 U/L [facility] ALT [Catalytic activity/Vol] 110 U/L High NINF - 40 U/L [facility] Anion gap [Moles/Vol] 14 mmol/L High 3 - 13 mmol/L [facility] AST [Catalytic activity/Vol] 75 U/L High NINF - 34 U/L [facility] Bilirubin [Mass/Vol] 3 mg/dL High NINF - 1.2 mg/dL [facility] Calcium [Mass/Vol] 9.3 mg/dL 8.4 - 10. 2 mg/dL [facility] Chloride [Moles/Vol] 102 mmol/L 98 - 10 7 mmol/L [facility] CO2 [Moles/Vol] 22 mmol/L 22 - 29 mmol/L [facility] Creatinine [Mass/Vol] 2.06 mg/dL High 0.72 - 1.25 mg/dL [facility] GFR/1.73 sq M.predicted (S/P/Bld) [Vol rate/Area] 39.5 mL/min Low - PINF [facility] Comment on above: Calculation based on the Chronic Kidney Disease Epidemiology Collaboration (CKD-EPI) equation refit without adjustment for race Glucose [Mass/Vol] 113 mg/dL High 74 - 100 mg/dL [facility] Interpretation and review of laboratory results Abnormal [facility] Potassium [Moles/Vol] 3.9 mmol/L 3.5 - 5.1 mmol/L [facility] Comment on above: Plasma potassium heidi ues may be up to 0.5 mmol/L lower than serum values. Protein [Mass/Vol] 6.6 g/dL 6.4 - 8.3 g/dL [facility] Sodium [Moles/Vol] 138 mmol/L 136 - 145 mmol/L [facility] Urea nitrogen [Mass/Vol] 51 mg/dL High 8 - 21 mg/dL [facility] ECG 12-LEADon 08-25-2024 ECG 12-LEAD IMPRESSION: Sinus tachycardia Left atrial enlargement Nonspecific IVCD with LAD Left ventricular hypertrophy ST elevation secondary to IVCD Electronically Signed On 08-25-2024 17:33:52 EST by Jamal Dia Normal [facility] ED Nursing Noteon 08-25-2024 ED Nursing Note Patient refusing covid/flu swab stating I would know if I had that and I haven't gotten it since it came out. Dr. Schaffer notified and aware. Normal [facility] ED Provider Noteon ED Provider Note Normal [facility] HIGH SENSITIVITY TROPONIN, S ERIAL BASELINEon 08-25-2024 TROPONIN HS SERIAL BASELINE 28 ng/L Normal <=35 [facility] Comment on above: Result Comment: In i ndividuals presenting with symptoms > 2h, a baseline troponin <= 5 ng/L suggests acutecardiac injury is unlikely and further serial testing is generally not indicated. Performed By: #### L AB17, [id number], [id number] ####Cuff Cutter: LESLEE HERNANDEZ ([id number])[facility] ([facility])[address] [place] [address] HIGH SENSITIVITY TROPONIN, S ERIAL, SECOND TESTon 08-25-2024 2H TROPONIN HS (SERIAL 2ND TROPONIN) 28 ng/L Normal <=35 [facility] Comment on above: Result Comment: Risi ng or falling troponin delta below 2 ng/L as compared to baseline value suggests thatacute cardiac injury is unlikely. Performed By: #### L [id number] ####Cuff Cutter: LESLEE HERNANDEZ ([id number])[facility] ([facility])[address] [place] [address] NT PRO BNPon 08-25-2024 Natriuretic peptide B (Bld) [Mass/Vol] 05396 pg/mL High <125 [facility] Comment on above: Performed By: #### L AB17, [id number], [id number] ####Cuff Cutter: LESLEE HERNANDEZ ([id number])[facility] ([facility])[address] [place] [address] Natriuretic peptide B [Mass/ Vol]on 08-25-2024 Interpretation and review of laboratory results Abnormal [facility] Natriuretic peptide B (Bld) [Mass/Vol] 22034 pg/mL High NINF - 125 pg/mL [facility] No Panel Informationon 08-25 2h Troponin HS (Serial 2nd Troponin) 28 ng/L [facility] - [facility] ng/L [facility] Comment on above: Rising or falling tr oponin delta below 2 ng/L as compared to baseline value suggests that acute cardiac injury is unlikely. Interpretation and review of laboratory results Normal [facility] Interpretation and review of laboratory results Normal [facility] Troponin HS Serial Baseline 28 ng/L NINF - 35 ng/L [facility] Comment on above: In individuals prese nting with symptoms > 2h, a baseline troponin <= 5 ng/L suggests acute cardiac injury is unlikely and further serial testing is generally not indicated. [facility] XR Chest Single viewon 08-25 Moderate cardiomegaly, unchanged. No acute pulmonary abnormality. Report Dictated on Electronically Signed By: Eugene Louise DO Electronically Signed Date/Time: 08/25/2024 3:12 AM [facility] 1980 [id number] Exam Date/Time: 08/25/2024 02:27 Procedure: XR CHEST 1 VIEW Ordering Provider: SCHAFFER MARY Reason For Exam: DYSPNEA EXAM: XR Chest, 1 View CLINICAL INDICATION: DYSPNEA TECHNIQUE: Frontal view of the chest. COMPARISON: 08/23/2024. FINDINGS: LUNGS AND PLEURAL SPACES: Unremarkable. No consolidation. No pneumothorax. HEART: Moderate cardiomegaly, unchanged. MEDIASTINUM: Unremarkable. Normal mediastinal contour. BONES/JOINTS: Thoracic degenerative spondylosis. No acute fracture. [facility] Eugene Louise DO - 08/25/2024 Patient Name: CARLO MEDINA : 1980 Exam Date/Time: 08/25/2024 02:27 Procedure: XR CHEST 1 VIEW Ordering Provider: SCHAFFER MARY Reason For Exam: DYSPNEA EXAM: XR Chest, 1 View CLINICAL INDICATION: DYSPNEA TECHNIQUE: Frontal view of the chest. COMPARISON: 08/23/2024. FINDINGS: LUNGS AND PLEURAL SPACES: Unremarkable. No consolidation. No pneumothorax. HEART: Moderate cardiomegaly, unchanged. MEDIASTINUM: Unremarkable. Normal mediastinal contour. BONES/JOINTS: Thoracic degenerative spondylosis. No acute fracture. IMPRESSION: Moderate cardiomegaly, unchanged. No acute pulmonary abnormality. Report Dictated on Electronically Signed By: Eugene Louise DO Electronically Signed Date/Time: 08/25/2024 3:12 AM EST [facility] Radiology Study observation (narrative) [facility] XR Chest Single viewOrdered By: Eugene Louise on 08-25-2024 [facility] Work Phone: 36on 08-23-2024 36 Normal [facility] 36 Discharged with hear t failure. Needs 72 hour post discharge phone call. Normal [facility] CT ABDOMEN PELVIS WO IV CONT RASTon 08-23-2024 CT ABDOMEN PELVIS WO IV CONTRAST Normal [facility] CT Abdomen and Pelvis WO con traston 08-23-2024 1. Cardiomegaly. 2. Small amount of free fluid within the dependent pelvis. Trace amount of perihepatic free fluid. Report Dictated on Electronically Signed By: Juan Pereira MD Electronically Signed Date/Time: 08/23/2024 6:56 AM EST [facility] Patient Name: CARLO MEDINA : 1980 Exam Date/Time: 08/23/2024 06:34 Procedure: CT ABDOMEN PELVIS WO IV CONTRAST Ordering Provider: ROA MICHAEL Reason For Exam: Abdominal pain, acute, nonlocalized CT ABDOMEN AND PELVIS WITHOUT IV CONTRAST CLINICAL INDICATION: Abdominal pain. TECHNIQUE: Multidetector axial CT images through the abdomen and pelvis were obtained without IV contrast. No oral contrast was administered. Images were reconstructed in sagittal and coronal planes. Dose reduction was employed with automated exposure control. COMPARISON: July 11, 2024. FINDINGS: This examination is limited for the evaluation of solid organs and vascular structures due to the lack of intravenous contrast. Lower thorax: Cardiomegaly. Stomach: Unremarkable. Liver: Normal size and contours. Normal hepatic parenchyma. No focal lesion. Biliary tree: Unremarkable gallbladder by CT. No biliary dilatation Spleen: Normal Adrenals: Normal. Pancreas: Normal. Right kidney and collecting system: No contour abnormality or focal renal lesion identified. No calculi, hydronephrosis or ureteral dilatation. Left kidney and collecting system: No contour abnormality or focal renal lesion identified. No calculi, hydronephrosis or ureteral dilatation. Free air or fluid: Small amount of free fluid within the dependent pelvis. Trace amount of perihepatic free fluid. Mesenteric/retroperit oreilly: No adenopathy or inflammation. Aorta: Normal caliber. Bowel: No inflammatory changes. No dilatation is noted. Bladder: No calculi or filling defects. Urinary bladder is physiologically distended. Inguinal: No lymphadenopathy. Abdominal wall/soft tissues: Tiny fat containing umbilical hernia. Osseous structures: No osseous abnormalities. [facility] Juan Pereira MD - 08/23/2024 Patient Name: CARLO MEDINA : 1980 [facility]#: [id number] Exam Date/Time: 08/23/2024 06:34 Procedure: CT ABDOMEN PELVIS WO IV CONTRAST Ordering Provider: ROA MICHAEL Reason For Exam: Abdominal pain, acute, nonlocalized CT ABDOMEN AND PELVIS WITHOUT IV CONTRAST CLINICAL INDICATION: Abdominal pain. TECHNIQUE: Multidetector axial CT images through the abdomen and pelvis were obtained without IV contrast. No oral contrast was administered. Images were reconstructed in sagittal and coronal planes. Dose reduction was employed with automated exposure control. COMPARISON: July 11, 2024. FINDINGS: This examination is limited for the evaluation of solid organs and vascular structures due to the lack of intravenous contrast. Lower thorax: Cardiomegaly. Stomach: Unremarkable. Liver: Normal size and contours. Normal hepatic parenchyma. No focal lesion. Biliary tree: Unremarkable gallbladder by CT. No biliary dilatation Spleen: Normal Adrenals: Normal. Pancreas: Normal. Right kidney and collecting system: No contour abnormality or focal renal lesion identified. No calculi, hydronephrosis or ureteral dilatation. Left kidney and collecting system: No contour abnormality or focal renal lesion identified. No calculi, hydronephrosis or ureteral dilatation. Free air or fluid: Small amount of free fluid within the dependent pelvis. Trace amount of perihepatic free fluid. Mesenteric/retroperit oreilly: No adenopathy or inflammation. Aorta: Normal caliber. Bowel: No inflammatory changes. No dilatation is noted. Bladder: No calculi or filling defects. Urinary bladder is physiologically distended. Inguinal: No lymphadenopathy. Abdominal wall/soft tissues: Tiny fat containing umbilical hernia. Osseous structures: No osseous abnormalities. IMPRESSION: 1. Cardiomegaly. 2. Small amount of free fluid within the dependent pelvis. Trace amount of perihepatic free fluid. Report Dictated on Electronically Signed By: Juan Pereira MD Electronically Signed Date/Time: 08/23/2024 6:56 AM EST [facility] Radiology Study observation (narrative) [facility] ECG 12-LEADon 08-23-2024 ECG 12-LEAD Normal [facility] ED NOTEon 08-23-2024 ED NOTE HNO ID: [id number] Author: LORAINE ZAYAS Medic Service: ? 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 Patient upset about wait times states do you realize I could have a heart attack. Patient educated on reasoning for revitals. Patient asking am I next back to be seen, do you realize I am a heart patient. If it is going to 3 more hours I am going to have to discharge myself. Patient walks out of triage room before informing him of third trop needing to be drawn. Normal [facility] ED Nursing Noteon 08-23-2024 ED Nursing Note Normal [facility] ED Nursing Note Pt. Ambulated to bathroom. Will monitor for pt. Return to room. Normal [facility] ED Nursing Note Normal [facility] ED Provider Noteon ED Provider Note Normal [facility] No Panel Informationon 08-23 P [place] 58 degrees [facility] IN Interval 129 ms [facility] QRS [place] -78 degrees [facility] QRSD Interval 155 ms [facility] QT Interval 380 ms [facility] QTC Interval 535 ms [facility] T Wave [place] 76 degrees [facility] Sinus tachycardia Ventricular premature complex Probable left atrial enlargement Nonspecific IVCD with LAD Left ventricular hypertrophy Anterior Q waves, possibly due to LVH No change compared to previous ekg Electronically Signed On 08-23-2024 07:36:51 EST by Vic Loaiza Vic Powell M D - 08/23/2024 IMPRESSION: Sinus tachycardia Ventricular premature complex Probable left atrial enlargement Nonspecific IVCD with LAD Left ventricular hypertrophy Anterior Q waves, possibly due to LVH No change compared to previous ekg Electronically Signed On 08-23-2024 07:36:51 EST by Vic Loaiza [facility] Progress Noteon 08-23-2024 Progress Note Normal [facility] Vital signson 08-23-2024 Heart rate 119 /min bpm [facility] XR Chest Single viewon 08-23 1. No acute cardiopulmonary process. 2. Cardiomegaly. Report Dictated on Electronically Signed By: Juan Pereira MD Electronically Signed Date/Time: 08/23/2024 6:43 AM [facility] [employer] [facility]: [facility]LO MED[facility] 1980 [id number] Exam Date/Time: 08/23/2024 06:38 Procedure: XR CHEST 1 VIEW Ordering Provider: ROA MICHAEL Reason For Exam: SOB CHEST X-RAY AP CLINICAL INDICATION: Shortness of breath AP radiograph of the chest was obtained. COMPARISON: August 11, 2024 FINDINGS: The cardiac silhouette is enlarged. No focal consolidation or opacification is seen within the lungs. No pleural effusion or pneumothorax is identified. Degenerative changes of the thoracic spine are noted. [facility] Juan Pereira MD - 08/23/2024 Patient Name: [facility]LO MEDINA : 1980 [id number] Exam Date/Time: 08/23/2024 06:38 Procedure: XR CHEST 1 VIEW Ordering Provider: ROA MICHAEL Reason For Exam: SOB CHEST X-RAY AP CLINICAL INDICATION: Shortness of breath AP radiograph of the chest was obtained. COMPARISON: August 11, 2024 FINDINGS: The cardiac silhouette is enlarged. No focal consolidation or opacification is seen within the lungs. No pleural effusion or pneumothorax is identified. Degenerative changes of the thoracic spine are noted. IMPRESSION: 1. No acute cardiopulmonary process. 2. Cardiomegaly. Report Dictated on Electronically Signed By: Juan Pereira MD Electronically Signed Date/Time: 08/23/2024 6:43 AM EST [facility] Radiology Study observation (narrative) [facility] XR Chest Single viewOrdered By: Juan Pereira on 08-23-2024 [facility] Work Phone: CBC W Auto Differential pane l (Bld)on 08-22-2024 Basophils (Bld) [#/Vol] 0.03 10*3/uL Normal <0.11 [facility] Comment on above: Order Comment: Speci [place] Type: BLOOD SPECIMEN Ordering Facility: [facility] Address: [address] [place] [address] Performed By: #### 5 7021-8 #### [facility] CLIA [id number] [address] [place] Basophils/100 WBC (Bld) 0.3 % Normal [facility] Comment on above: Order Comment: Sunni reynoso Type: BLOOD SPECIMEN Ordering Facility: [facility] Address: [address] [place] [address] Performed By: #### 5 7021-8 #### [facility] CLIA [id number] [address] Differential cell count method Nom (Bld) Auto Normal [facility] Comment on above: Order Comment: Speci men Type: BLOOD SPECIMEN Ordering Facility: [facility] Address: [address] [place] [address] Performed By: #### 5 7021-8 #### [facility] CLIA [id number] [address] Eosinophils (Bld) [#/Vol] 0.05 10*3/uL Normal <0.46 [facility] Comment on above: Order Comment: Speci men Type: BLOOD SPECIMEN Ordering Facility: [facility] Address: [address] [place] [address] Performed By: #### 5 7021-8 #### [facility] CLIA [id number] [address] Eosinophils/100 WBC (Bld) 0.6 % Normal [facility] Comment on above: Order Comment: Speci men Type: BLOOD SPECIMEN Ordering Facility: [facility] Address: [address] [place] [address] Performed By: #### 5 7021-8 #### [facility] CLIA [id number] [address] Erythrocyte distribution width (RBC) [Ratio] 12.7 % Normal 11.5-15.0 [facility] Comment on above: Order Comment: Speci men Type: BLOOD SPECIMEN Ordering Facility: [facility] Address: [address] [place] [address] Performed By: #### 5 7021-8 #### [facility] CLIA [id number] [address] Hematocrit (Bld) [Volume fraction] 45.0 % Normal 39.0-51.0 [facility] Comment on above: Order Comment: Speci men Type: BLOOD SPECIMEN Ordering Facility: [facility] Address: [address] [place] [address] Performed By: #### 5 7021-8 #### [facility] CLIA [id number] [address] [place] Hemoglobin (Bld) [Mass/Vol] 14.3 g/dL Normal 13.0-17.0 [facility] Comment on above: Order Comment: Speci men Type: BLOOD SPECIMEN Ordering Facility: [facility] Address: [address] [place] [address] Performed By: #### 5 7021-8 #### [facility] CLIA [id number] [address] [place] Immature granulocytes (Bld) [#/Vol] 10*3/uL Normal <0.10 [facility] Comment on above: Order Comment: Speci men Type: BLOOD SPECIMEN Ordering Facility: [facility] Address: [address] [place] [address] Performed By: #### 5 7021-8 #### [facility] CLIA [id number] [address] [place] Immature granulocytes/100 WBC (Bld) 0.2 % Normal [facility] Comment on above: Order Comment: Speci men Type: BLOOD SPECIMEN Ordering Facility: [facility] Address: [address] [place] [address] Performed By: #### 5 7021-8 #### [facility] CLIA [id number] [address] [place] Lymphocytes (Bld) [#/Vol] 2.99 10*3/uL Normal 1.00-4.00 [facility] Comment on above: Order Comment: Speci men Type: BLOOD SPECIMEN Ordering Facility: [facility] Address: [address] [place] [address] Performed By: #### 5 7021-8 #### [facility] CLIA [id number] [address] [place] Lymphocytes/100 WBC (Bld) 33.1 % Normal [facility] Comment on above: Order Comment: Speci men Type: BLOOD SPECIMEN Ordering Facility: [facility] Address: [address] [place] [address] Performed By: #### 5 7021-8 #### [facility] CLIA [id number] [address] MCH (RBC) [Entitic mass] 33.8 pg Normal 26.0-34.0 [facility] Comment on above: Order Comment: Speci men Type: BLOOD SPECIMEN Ordering Facility: [facility] Address: [address] [place] [address] Performed By: #### 5 7021-8 #### [facility] CLIA [id number] [address] MCHC (RBC) [Mass/Vol] 31.8 g/dL Normal 30.5-36.0 [facility] Comment on above: Order Comment: Speci men Type: BLOOD SPECIMEN Ordering Facility: [facility] Address: [address] [place] [address] Performed By: #### 5 7021-8 #### [facility] CLIA [id number] [address] MCV (RBC) [Entitic vol] 106.4 fL High 80.0-100.0 [facility] Comment on above: Order Comment: Speci men Type: BLOOD SPECIMEN Ordering Facility: [facility] Address: [address] [place] [address] Performed By: #### 5 7021-8 #### [facility] CLIA [id number] [address] Monocytes (Bld) [#/Vol] 0.70 10*3/uL Normal <0.87 [facility] Comment on above: Order Comment: Speci men Type: BLOOD SPECIMEN Ordering Facility: [facility] Address: [address] [place] [address] Performed By: #### 5 7021-8 #### [facility] CLIA [id number] [address] Monocytes/100 WBC (Bld) 7.8 % Normal [facility] Comment on above: Order Comment: Speci men Type: BLOOD SPECIMEN Ordering Facility: [facility] Address: [address] [place] [address] Performed By: #### 5 7021-8 #### [facility] CLIA [id number] [address] [place] Neutrophils (Bld) [#/Vol] 5.24 10*3/uL Normal 1.45-7.50 [facility] Comment on above: Order Comment: Speci men Type: BLOOD SPECIMEN Ordering Facility: [facility] Address: [address] [place] [address] Performed By: #### 5 7021-8 #### [facility] CLIA [id number] [address] OF [facility] Neutrophils/100 WBC (Bld) 58.0 % Normal [facility] Comment on above: Order Comment: Speci men Type: BLOOD SPECIMEN Ordering Facility: [facility] Address: [address] [place] [address] Performed By: #### 5 7021-8 #### [facility] CLIA [id number] [address] [place] Nucleated RBC (Bld) [#/Vol] 10*3/uL Normal <0.01 [facility] Comment on above: Order Comment: Speci men Type: BLOOD SPECIMEN Ordering Facility: [facility] Address: [address] [place] [address] Performed By: #### 5 7021-8 #### [facility] CLIA [id number] [address] [place] Nucleated RBC/100 WBC (Bld) [Ratio] 0.0 /100 WBC Normal [facility] Comment on above: Order Comment: Speci men Type: BLOOD SPECIMEN Ordering Facility: [facility] Address: [address] [place] [address] Performed By: #### 5 7021-8 #### [facility] CLIA [id number] [address] STATES OF [facility] Platelet mean volume (Bld) [Entitic vol] 8.8 fL Low 9.0-12.7 [facility] Comment on above: Order Comment: Speci men Type: BLOOD SPECIMEN Ordering Facility: [facility] Address: [address] [place] [address] Performed By: #### 5 7021-8 #### [facility] CLIA [id number] [address] [place] Platelets (Bld) [#/Vol] 283 10*3/uL Normal 150-400 [facility] Comment on above: Order Comment: Speci men Type: BLOOD SPECIMEN Ordering Facility: [facility] Address: [address] [place] [address] Performed By: #### 5 7021-8 #### [facility] CLIA [id number] [address] RBC (Bld) [#/Vol] 4.23 10*6/uL Normal 4.20-6.00 [facility] Comment on above: Order Comment: Speci men Type: BLOOD SPECIMEN Ordering Facility: [facility] Address: [address] [place] [address] Performed By: #### 5 7021-8 #### [facility] CLIA [id number] [address] WBC (Bld) [#/Vol] 9.03 10*3/uL Normal 3.70-11.00 [facility] Comment on above: Order Comment: Speci men Type: BLOOD SPECIMEN Ordering Facility: [facility] Address: [address] [place] [address] Performed By: #### 5 7021-8 #### [facility] CLIA [id number] [address] Comprehensive metabolic 2000 panelon 08-22-2024 Albumin [Mass/Vol] 3.9 g/dL Normal 3.9-4.9 [facility] Comment on above: Order Comment: Speci men Type: BLOOD SPECIMEN Ordering Facility: [facility] Address: [address] [place] [address] Performed By: #### 3 3762-6, 36880-2, 21756-7, 3040-3 #### [employer] [facility] CLIA [id number] [address] ALP [Catalytic activity/Vol] 197 U/L High 38-113 [facility] Comment on above: Order Comment: Speci men Type: BLOOD SPECIMEN Ordering Facility: [facility] Address: [address] [place] [address] Performed By: #### 3 3762-6, 86231-3, 20861-6, 3040-3 #### [facility] CLIA [id number] [address] ALT With P-5'-P [Catalytic activity/Vol] 60 U/L High 10-54 [facility] Comment on above: Order Comment: Speci men Type: BLOOD SPECIMEN Ordering Facility: [facility] Address: [address] [place] [address] Performed By: #### 3 3762-6, 88709-7, 05007-1, 3040-3 #### [facility] CLIA [id number] [address] Anion gap [Moles/Vol] 13 mmol/L Normal 8-15 [facility] Comment on above: Order Comment: Speci men Type: BLOOD SPECIMEN Ordering Facility: [facility] Address: [address] [place] [address] Performed By: #### 3 3762-6, 91428-3, 27013-1, 3040-3 #### [facility] CLIA [id number] [address] AST With P-5'-P [Catalytic activity/Vol] 45 U/L High 14-40 [facility] Comment on above: Order Comment: Speci men Type: BLOOD SPECIMEN Ordering Facility: [facility] Address: [address] [place] [address] Performed By: #### 3 3762-6, 07443-0, 35677-6, 3040-3 #### [facility] CLIA [id number] [address] [place] [address] [place] Bilirubin [Mass/Vol] 1.4 mg/dL High 0.2-1.3 [facility] Comment on above: Order Comment: Speci men Type: BLOOD SPECIMEN Ordering Facility: [facility] Address: [address] [place] [address] Performed By: #### 3 3762-6, 33506-3, 83964-6, 3040-3 #### [facility] CLIA [id number] 1 [place] [address] [place] Calcium [Mass/Vol] 8.9 mg/dL Normal 8.5-10.2 [facility] Comment on above: Order Comment: Speci men Type: BLOOD SPECIMEN Ordering Facility: [facility] Address: [address] [place] [address] Performed By: #### 3 2-6, 94825-2, 19258-5, 3040-3 #### [facility] CLIA [id number] 1 [place] [address] [place] Chloride [Moles/Vol] 98 mmol/L Normal 98-107 [facility] Comment on above: Order Comment: Speci men Type: BLOOD SPECIMEN Ordering Facility: [facility] Address: [address] [place] [address] Performed By: #### 3 2-6, 04122-6, 96587-8, 3040-3 #### [facility] CLIA [id number] 1 [place] [address] [place] CO2 [Moles/Vol] 29 mmol/L Normal 22-30 [facility] Comment on above: Order Comment: Speci men Type: BLOOD SPECIMEN Ordering Facility: [facility] Address: [address] [place] [address] Performed By: #### 3 3762-6, 20742-6, 45316-5, 3040-3 #### [facility] CLIA [id number] [address] [place] Creatinine [Mass/Vol] 1.93 mg/dL High 0.73-1.22 [facility] Comment on above: Order Comment: Sunni reynoso Type: BLOOD SPECIMEN Ordering Facility: [facility] Address: [address] [place] [address] Performed By: #### 3 3762-6, 73684-5, 47711-5, 3040-3 #### [facility] CLIA [id number] [address] Creatinine and Glomerular filtration rate.predicted panel (S/P/Bld) 43 mL/min/1.73m??? Low >=60 [facility] Comment on above: Order Comment: Sunni reynoso Type: BLOOD SPECIMEN Ordering Facility: [facility] Address: [address] [place] [address] Result Comment: Ella mated Glomerular Filtration Rate (eGFR) is calculated using the 2020 CKD-EPI creatinine equation. This equation utilizes serum creatinine, sex, and age as parameters. The creatinine assay has traceable calibration to isotope dilution-mass spectrometry. Refer to KDIGO guidelines for clinical interpretation. In patients with unstable renal function, e.g. those with acute kidney injury, the eGFR may not accurately reflect actual GFR. Performed By: #### 3 3762-6, 44410-4, 53208-5, 3040-3 #### [facility] CLIA [id number] [address] [place] Glucose [Mass/Vol] 130 mg/dL High 74-99 [facility] Comment on above: Order Comment: Sunni reynoso Type: BLOOD SPECIMEN Ordering Facility: [facility] Address: [address] [place] [address] Result Comment: The [place] Diabetes Association (ADA) provides guidance for cutoff values for fasting glucose and random glucose. The ADA defines fasting as no caloric intake for at least 8 hours. Fasting plasma glucose results between 100 to 125 mg/dL indicate increased risk for diabetes (prediabetes). Fasting plasma glucose results greater than or equal to 126 mg/dL meet the criteria for diagnosis of diabetes. In the absence of unequivocal hyperglycemia, results should be confirmed by repeat testing. In a patient with classic symptoms of hyperglycemia or hyperglycemic crisis, random plasma glucose results greater than or equal to 200 mg/dL meet the criteria for diagnosis of diabetes. Reference: Standards of Medical Care in Diabetes 2016, [place] Diabetes Association. Diabetes Care. 2016.39(Suppl 1). Performed By: #### 3 3762-6, 45547-1, 71515-3, 3040-3 #### [facility] CLIA [id number] [address] [place] [address] [place] Potassium [Moles/Vol] 3.9 mmol/L Normal 3.7-5.1 [facility] Comment on above: Order Comment: Speci men Type: BLOOD SPECIMEN Ordering Facility: [facility] Address: [address] [place] [address] Performed By: #### 3 3762-6, 09710-8, 98454-7, 3040-3 #### [facility] CLIA [id number] 1 [place] [address] [place] Protein [Mass/Vol] 6.8 g/dL Normal 6.3-8.0 [facility] Comment on above: Order Comment: Speci men Type: BLOOD SPECIMEN Ordering Facility: [facility] Address: [address] [place] [address] Performed By: #### 3 3762-6, 77177-8, 09903-2, 3040-3 #### [facility] CLIA [id number] 1 [place] [address] [place] Sodium [Moles/Vol] 140 mmol/L Normal 136-144 [facility] Comment on above: Order Comment: Speci men Type: BLOOD SPECIMEN Ordering Facility: [facility] Address: [address] [place] [address] Performed By: #### 3 3762-6, 05790-8, 94452-4, 3040-3 #### [facility] CLIA [id number] 1 [place] [address] [place] Urea nitrogen [Mass/Vol] 37 mg/dL High 9-24 [facility] Comment on above: Order Comment: Speci men Type: BLOOD SPECIMEN Ordering Facility: [facility] Address: [address] [place] [address] Performed By: #### 3 3762-6, 24265-7, 66009-5, 3040-3 #### [facility] CLIA [id number] [address] OF [facility] ECG COMPLETEon 08-22-2024 ECG COMPLETE Ventricular Rate : 115 BPM Atrial Rate : 115 BPM P-R Interval : 132 ms QRS Duration : 146 ms Q-T Interval : 388 ms QTC Calculation(Bazett) : 536 ms Calculated P [place] : 52 degrees Calculated R [place] : -71 degrees Calculated T [place] : 81 degrees SINUS TACHYCARDIA LEFT ATRIAL ENLARGEMENT LEFT AXIS DEVIATION LEFT BUNDLE BRANCH BLOCK ABNORMAL ECG NO PREVIOUS ECGS AVAILABLE Confirmed by EMILIE CAM MD ([id number]) on 11/01/2024 10:13:23 PM NAME : CARLO MEDINA PID : [id number] : 1980 Gender : Male Race : Unknown ORD : [id number] Procedure Date : Aug 22 2024 21:24:29 Edit Date : Nov 01 2024 22:13:25 Diagnosis: SINUS TACHYCARDIA LEFT ATRIAL ENLARGEMENT LEFT AXIS DEVIATION LEFT BUNDLE BRANCH BLOCK ABNORMAL ECG NO PREVIOUS ECGS AVAILABLE Confirmed by EMILIE CAM MD ([id number]) on 11/01/2024 10:13:23 PM Test Reason : Chest Pain Location : 4 : [facility] Overread By : EMILIE CAM MD Edited By : EMILIE CAM MD Referred By : , Acquired by : JC CASEY [facility] ED Triage Noteon 08-22-2024 ED Triage Note HNO ID: [id number] Author: GRACE BOB PA-C Service: Emergency Medicine Author Type: Physician Gun Fitter Type: ED Triage Notes Filed: 08/22/2024 21:25 Note Text: ED TRIAGE PROVIDER NOTE Patient Name: Carlo Medina Service Date: 08/22/24 Provider in triage As provider in triage my care is limited to quick assessment and initiation of any orders able to be performed during triage. BRIEF HPI: This is a 44 year old male who presents to the ED with: Concerns for chest pain, shortness of breath and abdominal pain. History of CAD, NSTEMI, CHF, SCHUYLER. Started around 4 PM today. Recent admission at [facility]. States has been compliant with his meds. BRIEF EXAM: Constitutional: Well-developed, well-nourished, NAD. HEENT: Normocephalic, atraumatic. Respiratory: No distress Cardiac: Tachycardic; pulses equal and symmetric Abdomen: Mid to upper abdominal pain. No peritoneal signs Musculoskeltal: WRAY x4. Patient ambulating in triage without difficulty. Neuro: AANDOx3. Skin: Warm and dry. INITIAL WORKUP AND DECISION MAKING: Orders Placed This Encounter XR CHEST 2V FRONTAL/LAT CBC + DIFF COMP METABOLIC PANEL MAGNESIUM BLD High Sensitivity Troponin T with Reflex for ED Chest Pain NT PRO BNP LIPASE BLD ECG COMPLETE SIGNATURE: Grace Bob PA-C Normal [facility] HIGH SENSITIVITY TROPONIN T (INITIAL)on 08-22-2024 Troponin T.cardiac High sensitivity method [Mass/Vol] 35 ng/L High <12 [facility] Comment on above: Order Comment: Sunni reynoso Type: BLOOD SPECIMEN Ordering Facility: [facility] Address: [address] [place] [address] Performed By: #### L [id number] #### [facility] CLIA [id number] [address] [place] HIGH SENSITIVITY TROPONIN T (SECOND)on 08-22-2024 Troponin T.cardiac High sensitivity method [Mass/Vol] 35 ng/L High <12 [facility] Comment on above: Order Comment: Sunni reynoso Type: BLOOD SPECIMEN Ordering Facility: [facility] Address: [address] [place] [address] Performed By: #### L [id number] #### [facility] CLIA [id number] [address] [place] [address] [place] Lipase SerPl-cCncon 08-22-19 25 Lipase [Catalytic activity/Vol] 34 U/L Normal 16-61 [facility] Comment on above: Order Comment: Sunni [facility] Type: BLOOD SPECIMEN Ordering Facility: [facility] Address: [address] [place] [address] Performed By: #### 3 3762-6, 47818-4, 59102-8, 3040-3 #### [facility] CLIA [id number] [address] Magnesium [facility] Magnesium [Mass/Vol] 2.2 mg/dL Normal 1.7-2.3 [facility] Comment on above: Order Comment: Sunni reynoso Type: BLOOD SPECIMEN Ordering Facility: [facility] Address: [address] [place] [address] Performed By: #### 3 3762-6, 68083-6, 84952-5, 3040-3 #### [facility] CLIA [id number] [address] [facility] 08-22 Natriuretic peptide.B prohormone N-Terminal [Mass/Vol] 33308 pg/mL High <125 [facility] Comment on above: Order Comment: Sunni [facility] Type: BLOOD SPECIMEN Ordering Facility: [facility] Address: [address] [place] [address] Performed By: #### 3 3762-6, 71576-5, 90966-3, 3040-3 #### [facility] CLIA [id number] [address] XR CHEST 2V FRONTAL/LATon XR CHEST 2V FRONTAL/LAT * * *Final Report* * * DATE OF EXAM: Aug 22 2024 10:03PM AKX [id number] - XR CHEST 2V FRONTAL/LAT / PROCEDURE REASON: Chest Pain * * * * Physician Interpretation * * * * EXAM: XR CHEST 2V FRONTAL/LAT CLINICAL HISTORY: Chest Pain Chest Pain, Shortness of breath COMPARISON: No available prior. RESULT: Lines, tubes, and devices: None. Lungs and pleura: No confluent infiltrate or air space consolidation in either lung. No pneumothorax or obvious pleural effusion. Cardiomediastinal silhouette: Large cardiac silhouette IMPRESSION: Enlarged cardiac silhouette. Tire Mechanic: JOSE Transcribe Date/Time: Aug 22 2024 11:55P Dictated by : RADHA ASHBY MD This examination was interpreted and the report reviewed and electronically signed by: RADHA ASHBY MD on Aug 22 2024 11:56PM EST [id number] Normal [facility] 30on 08-20-2024 30 Electronically charla d by Jacque Clark RN on 08/20/2024 at 12:54 PM Normal [facility] [id number] 08-20-2024 [id number] Normal [facility] CBC W Auto Differential pane l (Bld)on 08-20-2024 Basophils (Bld) [#/Vol] 0.1 10*3/uL 0.0 - 0.2 10*3/uL [facility] Basophils/100 WBC (Bld) 0.7 % 0.0 - 2.0 % [facility] Eosinophils (Bld) [#/Vol] 0.1 10*3/uL 0.0 - 0.5 10*3/uL [facility] Eosinophils/100 WBC (Bld) 1.2 % 0.0 - 6.0 % [facility] Erythrocyte distribution width (RBC) [Ratio] 12.4 % 11.5 - 15.0 % [facility] Hematocrit (Bld) [Volume fraction] 42.1 % 40.0 - 52.0 % [facility] Hemoglobin (Bld) [Mass/Vol] 14.2 g/dL 13.0 - 18.0 g/dL [facility] Immature granulocytes (Bld) [#/Vol] 0 10*3/uL NINF - 0.1 10*3/uL [facility] Immature granulocytes/100 WBC (Bld) 0.4 % 0.0 - 2.0 % [facility] Interpretation and review of laboratory results Abnormal [facility] Lymphocytes (Bld) [#/Vol] 2.5 10*3/uL 1.0 - 4.3 10*3/uL [facility] Lymphocytes/100 WBC (Bld) 29.9 % 15.0 - 45.0 % [facility] MCH (RBC) [Entitic mass] 33.2 pg 26.0 - 34.0 pg [facility] MCHC (RBC) [Mass/Vol] 33.7 % 30.5 - 36.0 % [facility] MCV (RBC) [Entitic vol] 98.4 fL 77.0 - 99.0 fL [facility] Monocytes (Bld) [#/Vol] 0.7 10*3/uL 0.0 - 0.9 10*3/uL [facility] Monocytes/100 WBC (Bld) 8.5 % 5.0 - 13.0 % [facility] Neutrophils (Bld) [#/Vol] 4.9 10*3/uL 1.8 - 7.5 10*3/uL [facility] Neutrophils/100 WBC (Bld) 59.3 % 38.0 - 82.0 % [facility] Nucleated RBC/100 WBC (Bld) [Ratio] 0 % [facility] [place] Platelet mean volume (Bld) [Entitic vol] 8.9 fL Low 9.0 - 12.7 fL [facility] Platelets (Bld) [#/Vol] 291 10*3/uL 140 - 440 10*3/uL [facility] RBC (Bld) [#/Vol] 4.28 10*6/uL Low 4.40 - 5.9 0 10*6/uL [facility] WBC (Bld) [#/Vol] 8.2 10*3/uL 3.6 - 10.7 10*3/uL [facility] CBC WITH AUTO DIFFERENTIALon 08-20-2024 Basophils (Bld) [#/Vol] 0.1 10*3/uL Normal 0.0-0.2 [facility] Comment on above: Performed By: #### L [id number] ####Cuff Cutter: NICOLE BOWERS ([id number])[address] Basophils/100 WBC (Bld) 0.7 % Normal 0.0-2.0 [facility] Comment on above: Performed By: #### L [id number] ####Cuff Cutter: NICOLE BOWERS ([id number])[address] Eosinophils (Bld) [#/Vol] 0.1 10*3/uL Normal 0.0-0.5 [facility] Comment on above: Performed By: #### L [id number] ####Cuff Cutter: NICOLE BOWERS ([id number])[facility])[address] [place] [address] Eosinophils/100 WBC (Bld) 1.2 % Normal 0.0-6.0 [facility] Comment on above: Performed By: #### L [id number] ####Cuff Cutter: NICOLE BOWERS ([id number])[facility])[address] [place] [address] Erythrocyte distribution width (RBC) [Ratio] 12.4 % Normal 11.5-15.0 [facility] Comment on above: Performed By: #### L [id number] ####Cuff Cutter: NICOLE BOWERS ([id number])[address] Hematocrit (Bld) [Volume fraction] 42.1 % Normal 40.0-52.0 [facility] Comment on above: Performed By: #### L [id number] ####Cuff Cutter: NICOLE BOWERS ([id number])[facility])[address] [place] [address] Hemoglobin (Bld) [Mass/Vol] 14.2 g/dL Normal 13.0-18.0 [facility] Comment on above: Performed By: #### L [id number] ####Cuff Cutter: NICOLE BOWERS ([id number])[facility])[address] [place] [address] IMMATURE GRANS % 0.4 % Normal 0.0-2.0 [facility] Comment on above: Performed By: #### L [id number] ####Cuff Cutter: NICOLE BOWERS ([id number])[facility])[address] [place] [address] IMMATURE GRANS ABSOLUTE 0.0 10*3/uL Normal <0.1 [facility] Comment on above: Performed By: #### L [id number] ####Cuff Cutter: NICOLE BOWERS ([id number])[facility])[address] [place] [address] Lymphocytes (Bld) [#/Vol] 2.5 10*3/uL Normal 1.0-4.3 [facility] Comment on above: Performed By: #### L [id number] ####Cuff Cutter: NICOLE BOWERS ([id number])[facility])[address] [place] [address] Lymphocytes/100 WBC (Bld) 29.9 % Normal 15.0-45.0 [facility] Comment on above: Performed By: #### L [id number] ####Cuff Cutter: NICOLE BOWERS ([id number])[facility])[address] [place] [address] MCH (RBC) [Entitic mass] 33.2 pg Normal 26.0-34.0 [facility] Comment on above: Performed By: #### L [id number] ####Cuff Cutter: NICOLE BOWERS ([id number])[facility])[address] [place] [address] MCHC 33.7 % Normal 30.5-36.0 [facility] Comment on above: Performed By: #### L [id number] ####Cuff Cutter: INCOLE BOWERS ([id number])[facility])[address] [place] [address] MCV (RBC) [Entitic vol] 98.4 fL Normal 77.0-99.0 [facility] Comment on above: Performed By: #### L [id number] ####Cuff Cutter: NICOLE BOWERS ([id number])[facility])[address] [place] [address] Monocytes (Bld) [#/Vol] 0.7 10*3/uL Normal 0.0-0.9 [facility] Comment on above: Performed By: #### L [id number] ####Cuff Cutter: NICOLE BOWERS ([id number])[facility])[address] [place] [address] Monocytes/100 WBC (Bld) 8.5 % Normal 5.0-13.0 [facility] Comment on above: Performed By: #### L [id number] ####Cuff Cutter: NICOLE BOWERS ([id number])[facility])[address] [place] [address] NEUTROPHILS ABSOLUTE 4.9 10*3/uL Normal 1.8-7.5 [facility] Comment on above: Performed By: #### L [id number] ####Cuff Cutter: NICOLE BOWERS ([id number])[facility])[address] [place] [address] Neutrophils/100 WBC (Bld) 59.3 % Normal 38.0-82.0 [facility] Comment on above: Performed By: #### L [id number] ####Cuff Cutter: NICOLE BOWERS ([id number])[facility])[address] [place] [address] NRBC 0.0 /100 WBCs Normal 0.0-2.0 [facility] Comment on above: Performed By: #### L [id number] ####Cuff Cutter: NICOLE BOWERS ([id number])[facility])[address] [place] [address] Platelet mean volume (Bld) [Entitic vol] 8.9 fL Low 9.0-12.7 [facility] Comment on above: Performed By: #### L [id number] ####Cuff Cutter: NICOLE BOWERS ([id number])[facility])[address] [place] [address] Platelets (Bld) [#/Vol] 291 10*3/uL Normal 140-440 [facility] Comment on above: Performed By: #### L [id number] ####Cuff Cutter: NICOLE BOWERS ([id number])[facility])[address] [place] [address] RBC (Bld) [#/Vol] 4.28 10*6/uL Low 4.40-5.90 [facility] Comment on above: Performed By: #### L [id number] ####Cuff Cutter: NICOLE BOWERS ([id number])[facility])[address] [place] [address] WBC (Bld) [#/Vol] 8.2 10*3/uL Normal 3.6-10.7 [facility] Comment on above: Performed By: #### L [id number] ####Cuff Cutter: NICOLE BOWERS ([id number])[facility])[address] [place] [address] COMPREHENSIVE METABOLIC PANE Ming 08-20-2024 Albumin [Mass/Vol] 2.9 g/dL Low 3.5-5.0 [facility] Comment on above: Performed By: #### L AB103, LAB17 ####Cuff Cutter: NICOLE BOWERS ([id number])[facility])[address] [place] [address] ALP [Catalytic activity/Vol] 198 U/L High 40-150 [facility] Comment on above: Performed By: #### L AB103, LAB17 ####Cuff Cutter: NICOLE BOWERS ([id number])[facility])[address] [place] [address] ALT [Catalytic activity/Vol] 53 U/L High <40 [facility] Comment on above: Performed By: #### L AB103, LAB17 ####Cuff Cutter: NICOLE BOWERS ([id number])[facility])[address] [place] [address] Anion gap [Moles/Vol] 9 mmol/L Normal 3-13 [facility] Comment on above: Performed By: #### L AB103, LAB17 ####Cuff Cutter: NICOLE BOWERS ([id number])[facility])[address] [place] [address] AST [Catalytic activity/Vol] 33 U/L Normal <34 [facility] Comment on above: Performed By: #### L AB103, LAB17 ####Cuff Cutter: NICOLE BOWERS ([id number])[facility])[address] [place] [address] [place] Bilirubin [Mass/Vol] 1.6 mg/dL High <1.2 [facility] Comment on above: Performed By: #### Pedro ECHEVERRIA, LAB17 ####Cuff Cutter: NICOLE BOWERS ([id number])[facility])[address] [place] [address] Calcium [Mass/Vol] 7.6 mg/dL Low 8.4-10.2 [facility] Comment on above: Performed By: #### Pedro JESSICA103, LAB17 ####Cuff Cutter: NICOLE BOWERS ([id number])[facility])[address] [place] [address] Chloride [Moles/Vol] 101 mmol/L Normal 98-107 [facility] Comment on above: Performed By: #### Pedro ECHEVERRIA, LAB17 ####Cuff Cutter: NICOLE BOWERS ([id number])[facility])[address] [place] [address] CO2 [Moles/Vol] 28 mmol/L Normal 22-29 [facility] Comment on above: Performed By: #### Pedro ECHEVERRIA, LAB17 ####Cuff Cutter: NICOLE BOWERS ([id number])[facility] ([facility])[address] [place] [address] Creatinine [Mass/Vol] 1.31 mg/dL High 0.72-1.25 [facility] Comment on above: Performed By: #### Pedro [place], LAB17 ####Cuff Cutter: NICOLE BOWERS ([id number])[facility])[address] [place] [address] [place] GLOMERULAR FILTRATION RATE ML/MIN/1.73 SQ M.PREDICTED 68.0 mL/min/1.73m*2 Normal >60.0 [facility] Comment on above: Result Comment: Calc ulation based on the Chronic Kidney Disease Epidemiology Collaboration (CKD-EPI) equation refit without adjustment for race Performed By: #### L ABKiera, LAB17 ####Cuff Cutter: NICOLE BOWERS ([id number])[facility] ([facility])[address] [place] [address] Glucose [Mass/Vol] 124 mg/dL High 74-100 [facility] Comment on above: Performed By: #### L AB103, LAB17 ####Cuff Cutter: NICOLE BOWERS ([id number])[facility] [facility] [place] [address] Potassium [Moles/Vol] 3.3 mmol/L Low 3.5-5.1 [facility] Comment on above: Result Comment: [facility] potassium values may be up to 0.5 mmol/L lower than serum values. Performed By: #### L AB103, [id number] ####Cuff Cutter: NICOLE BOWERS ([id number])[facility] ([facility])[address] [place] [address] Protein [Mass/Vol] 6.0 g/dL Low 6.4-8.3 [facility] Comment on above: Performed By: #### L AB103, LAB17 ####Cuff Cutter: NICOLE BOWERS ([id number])[facility] ([facility])[address] [place] [address] Sodium [Moles/Vol] 138 mmol/L Normal 136-145 [facility] Comment on above: Performed By: #### L AB103, LAB17 ####Cuff Cutter: NICOLE BOWERS ([id number])[facility] ([facility])[address] [place] [address] Urea nitrogen [Mass/Vol] 33 mg/dL High 8-21 [facility] Comment on above: Performed By: #### L AB103, LAB17 ####Cuff Cutter: NICOLE BOWERS ([id number])[facility])[address] [place] [address] Comprehensive metabolic 1998 panelon 08-20-2024 Albumin [Mass/Vol] 2.9 g/dL Low 3.5 - 5.0 g/dL [facility] ALP [Catalytic activity/Vol] 198 U/L High 40 - 150 U/L [facility] ALT [Catalytic activity/Vol] 53 U/L High NINF - 40 U/L [facility] Anion gap [Moles/Vol] 9 mmol/L 3 - 13 mmol/L [facility] AST [Catalytic activity/Vol] 33 U/L NINF - 34 U/L [facility] Bilirubin [Mass/Vol] 1.6 mg/dL High NINF - 1.2 mg/dL [facility] Calcium [Mass/Vol] 7.6 mg/dL Low 8.4 - 10. 2 mg/dL [facility] Chloride [Moles/Vol] 101 mmol/L 98 - 10 7 mmol/L [facility] CO2 [Moles/Vol] 28 mmol/L 22 - 29 mmol/L [facility] Creatinine [Mass/Vol] 1.31 mg/dL High 0.72 - 1.25 mg/dL [facility] GFR/1.73 sq M.predicted (S/P/Bld) [Vol rate/Area] 68 mL/min - PINF [facility] Glucose [Mass/Vol] 124 mg/dL High 74 - 100 mg/dL [facility] Interpretation and review of laboratory results Abnormal [facility] Potassium [Moles/Vol] 3.3 mmol/L Low 3.5 - 5.1 mmol/L [facility] Protein [Mass/Vol] 6 g/dL Low 6.4 - 8.3 g/dL [facility] Sodium [Moles/Vol] 138 mmol/L 136 - 145 mmol/L [facility] Urea nitrogen [Mass/Vol] 33 mg/dL High 8 - 21 mg/dL [facility] - Chemistry and C hemistry - challengeon 08-20-2024 Magnesium [Mass/Vol] 1.6 mg/dL 1.6 - 2 .6 mg/dL [facility] MAGNESIUMon 08-20-2024 Magnesium [Mass/Vol] 1.6 mg/dL Normal 1.6-2.6 [facility] Comment on above: Result Comment: ORDE R COMMENTS:Higher values can be expected in females during menses. Performed By: #### L AB103, LAB17 ####Cuff Cutter: NICOLE BOWERS ([id number])[facility] ([address] Magnesium [Mass/Vol]on 08-20 Interpretation and review of laboratory results Normal [facility] Nursing Noteon 08-20-2024 Nursing Note . IV heplock removed . Discharge instructions reviewed with patient. All questions answered. Pt discharged to home with all belongings. Normal [facility] Nursing Note Pt adamant on leavin g right now. Pt does not want meds to beds Patient would like medications sent to the [facility] in [place] on [address] Aguilar notified via secure chat. [facility] Nursing Note Dr. Briones notified regarding pt refusing meds and lab draw. Normal [facility] Nursing Note Dr. Aguilar notified tele order . Okay to have patient off tele. [facility] Progress Noteon 08-20-2024 Progress Note Normal [facility] Progress Note [facility] 30on 08-19-2024 30 Normal [facility] 30 [facility] [id number] 08-19-2024 [id number] When ok with Cardiology will be discharged. Refused to go to [facility], [place] last night. We do not accept his insurance. Pt is aware. .s [facility] BASIC METABOLIC PANELon -2 Anion gap [Moles/Vol] 12 mmol/L Normal 3-13 [facility] Comment on above: Performed By: #### L AB15 ####Cuff Cutter: NICOLE BOWERS ([id number])[facility] ([address] Calcium [Mass/Vol] 7.6 mg/dL Low 8.4-10.2 [facility] Comment on above: Performed By: #### L AB15 ####Cuff Cutter: NICOLE BOWERS ([id number])[facility] ([facility])[address] [place] [address] Chloride [Moles/Vol] 98 mmol/L Normal 98-107 [facility] Comment on above: Performed By: #### L AB15 ####Cuff Cutter: NICOLE BOWERS ([id number])[facility] ([facility])[address] [place] [address] CO2 [Moles/Vol] 30 mmol/L High 22-29 [facility] Comment on above: Performed By: #### L AB15 ####Cuff Cutter: NICOLE BOWERS ([id number])[facility])[address] [place] [address] Creatinine [Mass/Vol] 1.50 mg/dL High 0.72-1.25 [facility] Comment on above: Performed By: #### L AB15 ####Cuff Cutter: NICOLE BOWERS ([id number])[facility] ([facility])[address] [place] [address] GLOMERULAR FILTRATION RATE ML/MIN/1.73 SQ M.PREDICTED 57.8 mL/min/1.73m*2 Low >60.0 [facility] Comment on above: Result Comment: Calc ulation based on the Chronic Kidney Disease Epidemiology Collaboration (CKD-EPI) equation refit without adjustment for race Performed By: #### L AB15 ####Cuff Cutter: NICOLE BOWERS ([id number])[facility] ([facility])[address] [place] [address] [place] Glucose [Mass/Vol] 136 mg/dL High 74-100 [facility] Comment on above: Performed By: #### L AB15 ####Cuff Cutter: NICOLE BOWERS ([id number])[facility])[address] [place] [address] Potassium [Moles/Vol] 3.3 mmol/L Low 3.5-5.1 [facility] Comment on above: Result Comment: [facility] potassium values may be up to 0.5 mmol/L lower than serum values. Performed By: #### L AB15 ####Cuff Cutter: NICOLE BOWERS ([id number])[facility] ([facility])[address] [place] [address] [place] Sodium [Moles/Vol] 140 mmol/L Normal 136-145 [facility] Comment on above: Performed By: #### L AB15 ####Cuff Cutter: NICOLE BOWERS ([id number])[facility] ([facility])[address] [place] [address] Urea nitrogen [Mass/Vol] 31 mg/dL High 8-21 [facility] Comment on above: Performed By: #### L AB15 ####Cuff Cutter: NICOLE BOWERS ([id number])[facility] [place] [address] Basic metabolic 1998 panelon 08-19-2024 Anion gap [Moles/Vol] 12 mmol/L 3 - 13 mmol/L [facility] Calcium [Mass/Vol] 7.6 mg/dL Low 8.4 - 10. 2 mg/dL [facility] Chloride [Moles/Vol] 98 mmol/L 98 - 10 7 mmol/L [facility] CO2 [Moles/Vol] 30 mmol/L High 22 - 29 mmol/L [facility] Creatinine [Mass/Vol] 1.5 mg/dL High 0.72 - 1.25 mg/dL [facility] GFR/1.73 sq M.predicted (S/P/Bld) [Vol rate/Area] 57.8 mL/min Low - PINF [facility] Glucose [Mass/Vol] 136 mg/dL High 74 - 100 mg/dL [facility] Interpretation and review of laboratory results Abnormal [facility] Potassium [Moles/Vol] 3.3 mmol/L Low 3.5 - 5.1 mmol/L [facility] Sodium [Moles/Vol] 140 mmol/L 136 - 145 mmol/L [facility] Urea nitrogen [Mass/Vol] 31 mg/dL High 8 - 21 mg/dL [facility] CBC W Auto Differential pane l (Bld)on 08-19-2024 Basophils (Bld) [#/Vol] 0 10*3/uL 0.0 - 0.2 10*3/uL [facility] Basophils/100 WBC (Bld) 0.5 % 0.0 - 2.0 % [facility] Eosinophils (Bld) [#/Vol] 0.1 10*3/uL 0.0 - 0.5 10*3/uL [facility] Eosinophils/100 WBC (Bld) 0.8 % 0.0 - 6.0 % [facility] Erythrocyte distribution width (RBC) [Ratio] 12.7 % 11.5 - 15.0 % [facility] Hematocrit (Bld) [Volume fraction] 42.1 % 40.0 - 52.0 % [facility] Hemoglobin (Bld) [Mass/Vol] 14.1 g/dL 13.0 - 18.0 g/dL [facility] Immature granulocytes (Bld) [#/Vol] 0 10*3/uL NINF - 0.1 10*3/uL [facility] Immature granulocytes/100 WBC (Bld) 0.4 % 0.0 - 2.0 % [facility] Interpretation and review of laboratory results Abnormal [facility] Lymphocytes (Bld) [#/Vol] 2 10*3/uL 1.0 - 4.3 10*3/uL [facility] Lymphocytes/100 WBC (Bld) 25.9 % 15.0 - 45.0 % [facility] MCH (RBC) [Entitic mass] 33.2 pg 26.0 - 34.0 pg [facility] MCHC (RBC) [Mass/Vol] 33.5 % 30.5 - 36.0 % [facility] MCV (RBC) [Entitic vol] 99.1 fL High 77.0 - 99.0 fL [facility] Monocytes (Bld) [#/Vol] 0.5 10*3/uL 0.0 - 0.9 10*3/uL [facility] Monocytes/100 WBC (Bld) 7 % 5.0 - 13.0 % [facility] Neutrophils (Bld) [#/Vol] 4.9 10*3/uL 1.8 - 7.5 10*3/uL [facility] Neutrophils/100 WBC (Bld) 65.4 % 38.0 - 82.0 % [facility] Nucleated RBC/100 WBC (Bld) [Ratio] 0 % [facility] Platelet mean volume (Bld) [Entitic vol] 9.2 fL 9.0 - 12.7 fL [facility] Platelets (Bld) [#/Vol] 280 10*3/uL 140 - 440 10*3/uL [facility] RBC (Bld) [#/Vol] 4.25 10*6/uL Low 4.40 - 5.9 0 10*6/uL [facility] WBC (Bld) [#/Vol] 7.5 10*3/uL 3.6 - 10.7 10*3/uL [facility] CBC WITH AUTO DIFFERENTIALon 08-19-2024 Basophils (Bld) [#/Vol] 0.0 10*3/uL Normal 0.0-0.2 [facility] Comment on above: Performed By: #### L [id number] ####Cuff Cutter: NICOLE BOWERS ([id number])[facility])[address] [place] [address] Basophils/100 WBC (Bld) 0.5 % Normal 0.0-2.0 [facility] Comment on above: Performed By: #### L [id number] ####Cuff Cutter: NICOLE BOWERS ([id number])[facility])[address] [place] [address] Eosinophils (Bld) [#/Vol] 0.1 10*3/uL Normal 0.0-0.5 [facility] Comment on above: Performed By: #### L [id number] ####Cuff Cutter: NICOLE BOWERS ([id number])[facility])[address] [place] [address] Eosinophils/100 WBC (Bld) 0.8 % Normal 0.0-6.0 [facility] Comment on above: Performed By: #### L [id number] ####Cuff Cutter: NICOLE BOWERS ([id number])[facility])[address] [place] [address] Erythrocyte distribution width (RBC) [Ratio] 12.7 % Normal 11.5-15.0 [facility] Comment on above: Performed By: #### L [id number] ####Cuff Cutter: NICOLE BOWERS ([id number])[facility])[address] [place] [address] Hematocrit (Bld) [Volume fraction] 42.1 % Normal 40.0-52.0 [facility] Comment on above: Performed By: #### L [id number] ####Cuff Cutter: NICOLE BOWERS ([id number])[facility])[address] [place] [address] Hemoglobin (Bld) [Mass/Vol] 14.1 g/dL Normal 13.0-18.0 [facility] Comment on above: Performed By: #### L [id number] ####Cuff Cutter: NICOLE BOWERS ([id number])[facility])[address] [place] [address] IMMATURE GRANS % 0.4 % Normal 0.0-2.0 [facility] Comment on above: Performed By: #### L [id number] ####Cuff Cutter: NICOLE BOWERS ([id number])[facility])[address] [place] [address] IMMATURE GRANS ABSOLUTE 0.0 10*3/uL Normal <0.1 [facility] Comment on above: Performed By: #### L [id number] ####Cuff Cutter: NICOLE BOWERS ([id number])[address] Lymphocytes (Bld) [#/Vol] 2.0 10*3/uL Normal 1.0-4.3 [facility] Comment on above: Performed By: #### L [id number] ####Cuff Cutter: NICOLE BOWERS ([id number])[address] Lymphocytes/100 WBC (Bld) 25.9 % Normal 15.0-45.0 [facility] Comment on above: Performed By: #### L [id number] ####Cuff Cutter: NICOLE BOWERS ([id number])[facility])[address] [place] [address] MCH (RBC) [Entitic mass] 33.2 pg Normal 26.0-34.0 [facility] Comment on above: Performed By: #### L [id number] ####Cuff Cutter: NICOLE BOWERS ([id number])[address] MCHC 33.5 % Normal 30.5-36.0 [facility] Comment on above: Performed By: #### L [id number] ####Cuff Cutter: NICOLE BOWERS ([id number])[facility] ([facility])[address] [place] [address] MCV (RBC) [Entitic vol] 99.1 fL High 77.0-99.0 [facility] Comment on above: Performed By: #### L [id number] ####Cuff Cutter: NICOLE BOWERS ([id number])[facility] ([facility])[address] [place] [address] Monocytes (Bld) [#/Vol] 0.5 10*3/uL Normal 0.0-0.9 [facility] Comment on above: Performed By: #### L [id number] ####Cuff Cutter: NICOLE BOWERS ([id number])[facility] ([facility])[address] [place] [address] Monocytes/100 WBC (Bld) 7.0 % Normal 5.0-13.0 [facility] Comment on above: Performed By: #### L [id number] ####Cuff Cutter: NICOLE BOWERS ([id number])[facility] ([facility])[address] [place] [address] NEUTROPHILS ABSOLUTE 4.9 10*3/uL Normal 1.8-7.5 [facility] Comment on above: Performed By: #### L [id number] ####Cuff Cutter: NICOLE BOWERS ([id number])[facility] ([facility])[address] [place] [address] Neutrophils/100 WBC (Bld) 65.4 % Normal 38.0-82.0 [facility] Comment on above: Performed By: #### L [id number] ####Cuff Cutter: NICOLE BOWERS ([id number])[facility] ([facility])[address] [place] [address] NRBC 0.0 /100 WBCs Normal 0.0-2.0 [facility] Comment on above: Performed By: #### L [id number] ####Cuff Cutter: NICOLE BOWERS ([id number])[facility] ([facility])[address] [place] [address] Platelet mean volume (Bld) [Entitic vol] 9.2 fL Normal 9.0-12.7 [facility] Comment on above: Performed By: #### L [id number] ####Cuff Cutter: NICOLE BOWERS ([id number])[facility] ([facility])[address] [place] [address] Platelets (Bld) [#/Vol] 280 10*3/uL Normal 140-440 [facility] Comment on above: Performed By: #### L [id number] ####Cuff Cutter: NICOLE BOWERS ([id number])[facility] ([facility])[address] [place] [address] RBC (Bld) [#/Vol] 4.25 10*6/uL Low 4.40-5.90 [facility] Comment on above: Performed By: #### L [id number] ####Cuff Cutter: NICOLE BOWERS ([id number])[facility] ([facility])[address] [place] [address] WBC (Bld) [#/Vol] 7.5 10*3/uL Normal 3.6-10.7 [facility] Comment on above: Performed By: #### L [id number] ####Cuff Cutter: NICOLE BOWERS ([id number])[facility])[address] [place] [address] COMPREHENSIVE METABOLIC PANE Ming 08-19-2024 Albumin [Mass/Vol] 3.0 g/dL Low 3.5-5.0 [facility] Comment on above: Performed By: #### L AB17, [id number] ####Cuff Cutter: NICOLE BOWERS ([id number])[facility])[address] [place] [address] ALP [Catalytic activity/Vol] 191 U/L High 40-150 [facility] Comment on above: Performed By: #### L AB17, [id number] ####Cuff Cutter: NICOLE BOWERS ([id number])[facility])[address] [place] [address] [place] ALT [Catalytic activity/Vol] 54 U/L High <40 [facility] Comment on above: Performed By: #### L AB17, [id number] ####Cuff Cutter: NICOLE BOWERS ([id number])[facility] ([facility])[address] [place] [address] Anion gap [Moles/Vol] 12 mmol/L Normal 3-13 [facility] Comment on above: Performed By: #### L AB17, [id number] ####Cuff Cutter: NICOLE BOWERS ([id number])[facility] ([facility])[address] [place] [address] AST [Catalytic activity/Vol] 33 U/L Normal <34 [facility] Comment on above: Performed By: #### L AB17, [id number] ####Cuff Cutter: NICOLE BOWERS ([id number])[facility] ([facility])[address] [place] [address] Bilirubin [Mass/Vol] 1.6 mg/dL High <1.2 [facility] Comment on above: Performed By: #### L AB17, [id number] ####Cuff Cutter: NICOLE BOWERS ([id number])[facility] ([facility])[address] [place] [address] Calcium [Mass/Vol] 7.9 mg/dL Low 8.4-10.2 [facility] Comment on above: Performed By: #### L AB17, [id number] ####Cuff Cutter: NICOLE BOWERS ([id number])[facility] ([facility])[address] [place] [address] [place] Chloride [Moles/Vol] 96 mmol/L Low 98-107 [facility] Comment on above: Performed By: #### L AB17, [id number] ####Cuff Cutter: NICOLE BOWERS ([id number])[facility])[address] [place] [address] [place] CO2 [Moles/Vol] 28 mmol/L Normal 22-29 [facility] Comment on above: Performed By: #### L AB17, [id number] ####Cuff Cutter: NICOLE BOWERS ([id number])[facility] ([facility])[address] [place] [address] Creatinine [Mass/Vol] 1.64 mg/dL High 0.72-1.25 [facility] Comment on above: Performed By: #### L AB17, [id number] ####Cuff Cutter: NICOLE BOWERS ([id number])[facility])[address] [place] [address] [place] GLOMERULAR FILTRATION RATE ML/MIN/1.73 SQ M.PREDICTED 51.9 mL/min/1.73m*2 Low >60.0 [facility] Comment on above: Result Comment: Calc ulation based on the Chronic Kidney Disease Epidemiology Collaboration (CKD-EPI) equation refit without adjustment for race Performed By: #### L AB17, [id number] ####Cuff Cutter: NICOLE BOWERS ([id number])[facility])[address] [place] [address] [place] Glucose [Mass/Vol] 150 mg/dL High 74-100 [facility] Comment on above: Performed By: #### L AB17, [id number] ####Cuff Cutter: NICOLE BOWERS ([id number])[facility])[address] [place] [address] Potassium [Moles/Vol] 2.9 mmol/L Low 3.5-5.1 [facility] Comment on above: Result Comment: [facility] potassium values may be up to 0.5 mmol/L lower than serum values. Performed By: #### L AB17, [id number] ####Cuff Cutter: NICOLE BOWERS ([id number])[facility] ([facility])[address] [place] [address] Protein [Mass/Vol] 6.2 g/dL Low 6.4-8.3 [facility] Comment on above: Performed By: #### L AB17, [id number] ####Cuff Cutter: NICOLE BOWERS ([id number])[facility])[address] [place] [address] [place] Sodium [Moles/Vol] 136 mmol/L Normal 136-145 [facility] Comment on above: Performed By: #### L AB17, [id number] ####Cuff Cutter: NICOLE BOWERS ([id number])[facility] ([facility])[address] [place] [address] Urea nitrogen [Mass/Vol] 33 mg/dL High 8-21 [facility] Comment on above: Performed By: #### L AB17, [id number] ####Cuff Cutter: NICOLE BOWERS ([id number])[facility] ([facility])[address] [place] [address] Comprehensive metabolic 1998 panelOrdered By: Dariel Staley on 08-19-2024 Albumin [Mass/Vol] 3 g/dL Low 3.5 - 5.0 g/dL [facility] ALP [Catalytic activity/Vol] 191 U/L High 40 - 150 U/L [facility] ALT [Catalytic activity/Vol] 54 U/L High NINF - 40 U/L [facility] Anion gap [Moles/Vol] 12 mmol/L 3 - 13 mmol/L [facility] AST [Catalytic activity/Vol] 33 U/L NINF - 34 U/L [facility] Bilirubin [Mass/Vol] 1.6 mg/dL High NINF - 1.2 mg/dL [facility] Calcium [Mass/Vol] 7.9 mg/dL Low 8.4 - 10. 2 mg/dL [facility] Chloride [Moles/Vol] 96 mmol/L Low 98 - 10 7 mmol/L [facility] CO2 [Moles/Vol] 28 mmol/L 22 - 29 mmol/L [facility] Creatinine [Mass/Vol] 1.64 mg/dL High 0.72 - 1.25 mg/dL [facility] GFR/1.73 sq M.predicted (S/P/Bld) [Vol rate/Area] 51.9 mL/min Low - PINF [facility] Glucose [Mass/Vol] 150 mg/dL High 74 - 100 mg/dL [facility] Interpretation and review of laboratory results Abnormal [facility] Potassium [Moles/Vol] 2.9 mmol/L Low 3.5 - 5.1 mmol/L [facility] Protein [Mass/Vol] 6.2 g/dL Low 6.4 - 8.3 g/dL [facility] Sodium [Moles/Vol] 136 mmol/L 136 - 145 mmol/L [facility] Urea nitrogen [Mass/Vol] 33 mg/dL High 8 - 21 mg/dL [facility] - Chemistry and C hemistry - challengeon 08-19-2024 Magnesium [Mass/Vol] 1.4 mg/dL Low 1.6 - 2 .6 mg/dL [facility] MAGNESIUMon 08-19-2024 Magnesium [Mass/Vol] 1.4 mg/dL Low 1.6-2.6 [facility] Comment on above: Result Comment: ALEJANDRO Tatum COMMENTS:Higher values can be expected in females during menses. Performed By: #### L AB17, [id number] ####Cuff Cutter: NICOLE BOWERS ([id number])[facility])[address] [place] [address] Magnesium [Mass/Vol]on 08-19 Interpretation and review of laboratory results Abnormal [facility] Progress Noteon 08-19-2024 Progress Note Normal [facility] Progress Note Normal [facility] Progress Note Normal [facility] Progress Note Normal [facility] 30on 08-18-2024 30 Normal [facility] [id number] 08-18-2024 [id number] Normal [facility] [id number] Per RN [facility] daily, no bed available. Nephrology and Cardiology following. Needs electrolytes replaced. Not willing to take all of it. Plan is home when stable, no needs. . Normal [facility] CALCIUM, IONIZEDon 5 CALCIUM IONIZED 3.30 mg/dL Low 4.30-5.20 [facility] Comment on above: Performed By: #### L AB54 ####Cuff Cutter: NICOLE BOWERS ([id number])[facility] ([facility])[address] [place] [address] PH, IONIZED CALCIUM 7.60 High 7.31-7.46 [facility] Comment on above: Performed By: #### L AB54 ####Cuff Cutter: NICOLE BOWERS ([id number])[address] CBC W Auto Differential pane l (Bld)on 08-18-2024 Basophils (Bld) [#/Vol] 0 10*3/uL 0.0 - 0.2 10*3/uL [facility] Basophils/100 WBC (Bld) 0.5 % 0.0 - 2.0 % [facility] Eosinophils (Bld) [#/Vol] 0.1 10*3/uL 0.0 - 0.5 10*3/uL [facility] Eosinophils/100 WBC (Bld) 0.9 % 0.0 - 6.0 % [facility] Erythrocyte distribution width (RBC) [Ratio] 12.8 % 11.5 - 15.0 % [facility] Hematocrit (Bld) [Volume fraction] 44.5 % 40.0 - 52.0 % [facility] Hemoglobin (Bld) [Mass/Vol] 14.7 g/dL 13.0 - 18.0 g/dL [facility] Immature granulocytes (Bld) [#/Vol] 0 10*3/uL NINF - 0.1 10*3/uL [facility] Immature granulocytes/100 WBC (Bld) 0.2 % 0.0 - 2.0 % [facility] Interpretation and review of laboratory results Abnormal [facility] Lymphocytes (Bld) [#/Vol] 2.8 10*3/uL 1.0 - 4.3 10*3/uL [facility] Lymphocytes/100 WBC (Bld) 32.6 % 15.0 - 45.0 % [facility] MCH (RBC) [Entitic mass] 33.6 pg 26.0 - 34.0 pg [facility] MCHC (RBC) [Mass/Vol] 33 % 30.5 - 36.0 % [facility] MCV (RBC) [Entitic vol] 101.8 fL High 77.0 - 99.0 fL [facility] Monocytes (Bld) [#/Vol] 0.7 10*3/uL 0.0 - 0.9 10*3/uL [facility] Monocytes/100 WBC (Bld) 7.8 % 5.0 - 13.0 % [facility] Neutrophils (Bld) [#/Vol] 4.9 10*3/uL 1.8 - 7.5 10*3/uL [facility] Neutrophils/100 WBC (Bld) 58 % 38.0 - 82.0 % [facility] Nucleated RBC/100 WBC (Bld) [Ratio] 0 % [facility] Platelet mean volume (Bld) [Entitic vol] 9.6 fL 9.0 - 12.7 fL [facility] Platelets (Bld) [#/Vol] 288 10*3/uL 140 - 440 10*3/uL [facility] RBC (Bld) [#/Vol] 4.37 10*6/uL Low 4.40 - 5.9 0 10*6/uL [facility] WBC (Bld) [#/Vol] 8.4 10*3/uL 3.6 - 10.7 10*3/uL [facility] CBC WITH AUTO DIFFERENTIALon 08-18-2024 Basophils (Bld) [#/Vol] 0.0 10*3/uL Normal 0.0-0.2 [facility] [facility] Comment on above: Performed By: #### L [id number] ####Cuff Cutter: NICOLE BOWERS ([id number])[address] Basophils/100 WBC (Bld) 0.5 % Normal 0.0-2.0 [facility] Comment on above: Performed By: #### L [id number] ####Cuff Cutter: NICOLE BOWERS ([id number])[facility])[address] [place] [address] Eosinophils (Bld) [#/Vol] 0.1 10*3/uL Normal 0.0-0.5 [facility] Comment on above: Performed By: #### L [id number] ####Cuff Cutter: NICOLE BOWERS ([id number])[facility])[address] [place] [address] Eosinophils/100 WBC (Bld) 0.9 % Normal 0.0-6.0 [facility] Comment on above: Performed By: #### L [id number] ####Cuff Cutter: NICOLE [id number])[facility])[address] [place] [address] Erythrocyte distribution width (RBC) [Ratio] 12.8 % Normal 11.5-15.0 [facility] Comment on above: Performed By: #### L [id number] ####Cuff Cutter: NICOLE BOWERS ([id number])[facility])[address] [place] [address] Hematocrit (Bld) [Volume fraction] 44.5 % Normal 40.0-52.0 [facility] Comment on above: Performed By: #### L [id number] ####Cuff Cutter: NICOLE BOWERS ([id number])[facility])[address] [place] [address] Hemoglobin (Bld) [Mass/Vol] 14.7 g/dL Normal 13.0-18.0 [facility] Comment on above: Performed By: #### L [id number] ####Cuff Cutter: NICOLE BOWERS ([id number])[facility] ([facility])[address] [place] [address] IMMATURE GRANS % 0.2 % Normal 0.0-2.0 [facility] Comment on above: Performed By: #### L [id number] ####Cuff Cutter: NICOLE BOWERS ([id number])[facility])[address] [place] [address] IMMATURE GRANS ABSOLUTE 0.0 10*3/uL Normal <0.1 [facility] Comment on above: Performed By: #### L [id number] ####Cuff Cutter: NICOLE BOWERS ([id number])[facility])[address] [place] [address] Lymphocytes (Bld) [#/Vol] 2.8 10*3/uL Normal 1.0-4.3 [facility] Comment on above: Performed By: #### L [id number] ####Cuff Cutter: NICOLE BOWERS ([id number])[facility])[address] [place] [address] [place] Lymphocytes/100 WBC (Bld) 32.6 % Normal 15.0-45.0 [facility] Comment on above: Performed By: #### L [id number] ####Cuff Cutter: NICOLE BOWERS ([id number])[facility] ([facility])[address] [place] [address] MCH (RBC) [Entitic mass] 33.6 pg Normal 26.0-34.0 [facility] Comment on above: Performed By: #### L [id number] ####Cuff Cutter: NICOLE BOWERS ([id number])[facility] ([facility])[address] [place] [address] MCHC 33.0 % Normal 30.5-36.0 [facility] Comment on above: Performed By: #### L [id number] ####Cuff Cutter: NICOLE BOWERS ([id number])[facility] ([facility])[address] [place] [address] MCV (RBC) [Entitic vol] 101.8 fL High 77.0-99.0 [facility] Comment on above: Performed By: #### L [id number] ####Cuff Cutter: NICOLE BOWERS ([id number])[facility] ([facility])[address] [place] [address] Monocytes (Bld) [#/Vol] 0.7 10*3/uL Normal 0.0-0.9 [facility] Comment on above: Performed By: #### L [id number] ####Cuff Cutter: NICOLE BOWERS ([id number])[facility] ([facility])[address] [place] [address] Monocytes/100 WBC (Bld) 7.8 % Normal 5.0-13.0 [facility] Comment on above: Performed By: #### L [id number] ####Cuff Cutter: NICLOE BOWERS ([id number])[facility] ([facility])[address] [place] [address] NEUTROPHILS ABSOLUTE 4.9 10*3/uL Normal 1.8-7.5 [facility] Comment on above: Performed By: #### L [id number] ####Cuff Cutter: NICOLE BOWERS ([id number])[facility] ([facility])[address] [place] [address] Neutrophils/100 WBC (Bld) 58.0 % Normal 38.0-82.0 [facility] Comment on above: Performed By: #### L [id number] ####Cuff Cutter: NICOLE BOWERS ([id number])[facility] ([facility])[address] [place] [address] NRBC 0.0 /100 WBCs Normal 0.0-2.0 [facility] Comment on above: Performed By: #### L [id number] ####Cuff Cutter: NICOLE BOWERS ([id number])[facility])[address] [place] [address] Platelet mean volume (Bld) [Entitic vol] 9.6 fL Normal 9.0-12.7 [facility] Comment on above: Performed By: #### L [id number] ####Cuff Cutter: NICOLE BOWERS ([id number])[facility] ([facility])[address] [place] [address] Platelets (Bld) [#/Vol] 288 10*3/uL Normal 140-440 [facility] Comment on above: Performed By: #### L [id number] ####Cuff Cutter: NICOLE BOWERS ([id number])[facility] ([facility])[address] [place] [address] RBC (Bld) [#/Vol] 4.37 10*6/uL Low 4.40-5.90 [facility] Comment on above: Performed By: #### L [id number] ####Cuff Cutter: NICOLE BOWERS ([id number])[facility])[address] [place] [address] WBC (Bld) [#/Vol] 8.4 10*3/uL Normal 3.6-10.7 [facility] Comment on above: Performed By: #### L [id number] ####Cuff Cutter: NICOLE [id number])[facility])[address] [place] [address] COMPREHENSIVE METABOLIC PANE Ming 08-18-2024 Albumin [Mass/Vol] 3.0 g/dL Low 3.5-5.0 [facility] Comment on above: Performed By: #### L [id number], [id number] ####Cuff Cutter: NICOLE BOWERS ([id number])[facility] ([facility])[address] [place] [address] ALP [Catalytic activity/Vol] 195 U/L High 40-150 [facility] Comment on above: Performed By: #### L [id number], [id number] ####Cuff Cutter: NICOLE BOWERS ([id number])[facility] ([facility])[address] [place] [address] ALT [Catalytic activity/Vol] 56 U/L High <40 [facility] Comment on above: Performed By: #### L AB17, [id number] ####Cuff Cutter: NICOLE BOWERS ([id number])[facility] ([facility])[address] [place] [address] Anion gap [Moles/Vol] 13 mmol/L Normal 3-13 [facility] Comment on above: Performed By: #### L AB17, [id number] ####Cuff Cutter: NICOLE BOWERS ([id number])[facility] ([facility])[address] [place] [address] AST [Catalytic activity/Vol] 36 U/L High <34 [facility] Comment on above: Result Comment: TCPo tential interference from hemolysis Performed By: #### L AB17, [id number] ####Cuff Cutter: NICOLE BOWERS ([id number])[facility] ([facility])[address] [place] [address] Bilirubin [Mass/Vol] 1.6 mg/dL High <1.2 [facility] Comment on above: Performed By: #### L AB17, [id number] ####Cuff Cutter: NICOLE BOWERS ([id number])[facility])[address] [place] [address] Calcium [Mass/Vol] 7.8 mg/dL Low 8.4-10.2 [facility] Comment on above: Performed By: #### L AB17, [id number] ####Cuff Cutter: NICOLE BOWERS ([id number])[facility])[address] [place] [address] Chloride [Moles/Vol] 99 mmol/L Normal 98-107 [facility] Comment on above: Performed By: #### L AB17, [id number] ####Cuff Cutter: NICOLE BOWERS ([id number])[facility])[address] [place] [address] CO2 [Moles/Vol] 25 mmol/L Normal 22-29 [facility] Comment on above: Performed By: #### L AB17, [id number] ####Cuff Cutter: NICOLE BOWERS ([phone])[facility] ([facility])[address] [place] [address] Creatinine [Mass/Vol] 1.64 mg/dL High 0.72-1.25 [facility] Comment on above: Performed By: #### L AB17, [id number] ####Cuff Cutter: NICOLE BOWERS ([id number])[facility])[address] [place] [address] GLOMERULAR FILTRATION RATE ML/MIN/1.73 SQ M.PREDICTED 51.9 mL/min/1.73m*2 Low >60.0 [facility] Comment on above: Result Comment: Calc ulation based on the Chronic Kidney Disease Epidemiology Collaboration (CKD-EPI) equation refit without adjustment for race Performed By: #### L AB17, [id number] ####Cuff Cutter: NICOLE BOWERS ([id number])[facility] ([facility])[address] [place] [address] [place] Glucose [Mass/Vol] 104 mg/dL High 74-100 [facility] Comment on above: Performed By: #### L AB17, [id number] ####Cuff Cutter: NICOLE [id number])[facility] ([facility])[address] [place] [address] Potassium [Moles/Vol] 4.0 mmol/L Normal 3.5-5.1 [facility] Comment on above: Result Comment: [facility] potassium values may be up to 0.5 mmol/L lower than serum values. Performed By: #### L AB17, [id number] ####Cuff Cutter: NICOLE BOWERS ([id number])[facility])[address] [place] [address] Protein [Mass/Vol] 6.4 g/dL Normal 6.4-8.3 [facility] Comment on above: Performed By: #### L AB17, [id number] ####Cuff Cutter: NICOLE BOWERS ([id number])[facility])[address] [place] [address] Sodium [Moles/Vol] 137 mmol/L Normal 136-145 [facility] Comment on above: Performed By: #### L AB17, [id number] ####Cuff Cutter: NICOLE BOWERS ([id number])[facility])[address] [place] [address] Urea nitrogen [Mass/Vol] 33 mg/dL High 8-21 [facility] Comment on above: Performed By: #### L AB17, [id number] ####Cuff Cutter: NICOLE BOWERS ([id number])[facility])[address] [place] [address] Calcium.ionized [Moles/Vol]o n 08-18-2024 Calcium.ionized (Bld) [Moles/Vol] 3.3 mg/dL Low 4.30 - 5.20 mg/dL [facility] Interpretation and review of laboratory results Abnormal [facility] PH, IONIZED CALCIUM 7.6 High 7.31 - 7.46 [facility] Comprehensive metabolic 1998 panelon 08-18-2024 Albumin [Mass/Vol] 3 g/dL Low 3.5 - 5.0 g/dL [facility] ALP [Catalytic activity/Vol] 195 U/L High 40 - 150 U/L [facility] ALT [Catalytic activity/Vol] 56 U/L High NINF - 40 U/L [facility] Anion gap [Moles/Vol] 13 mmol/L 3 - 13 mmol/L [facility] AST [Catalytic activity/Vol] 36 U/L High NINF - 34 U/L [facility] Bilirubin [Mass/Vol] 1.6 mg/dL High NINF - 1.2 mg/dL [facility] Calcium [Mass/Vol] 7.8 mg/dL Low 8.4 - 10. 2 mg/dL [facility] Chloride [Moles/Vol] 99 mmol/L 98 - 10 7 mmol/L [facility] CO2 [Moles/Vol] 25 mmol/L 22 - 29 mmol/L [facility] Creatinine [Mass/Vol] 1.64 mg/dL High 0.72 - 1.25 mg/dL [facility] GFR/1.73 sq M.predicted (S/P/Bld) [Vol rate/Area] 51.9 mL/min Low - PINF [facility] Glucose [Mass/Vol] 104 mg/dL High 74 - 100 mg/dL [facility] Interpretation and review of laboratory results Abnormal [facility] Potassium [Moles/Vol] 4 mmol/L 3.5 - 5.1 mmol/L [facility] Protein [Mass/Vol] 6.4 g/dL 6.4 - 8.3 g/dL [facility] Sodium [Moles/Vol] 137 mmol/L 136 - 145 mmol/L [facility] Urea nitrogen [Mass/Vol] 33 mg/dL High 8 - 21 mg/dL [facility] Laboratory - Chemistry and C hemistry - challengeon 08-18-2024 Magnesium [Mass/Vol] 1.7 mg/dL 1.6 - 2 .6 mg/dL [facility] MAGNESIUMon 08-18-2024 Magnesium [Mass/Vol] 1.7 mg/dL Normal 1.6-2.6 [facility] Comment on above: Result Comment: ORDE R COMMENTS:Higher values can be expected in females during menses. Performed By: #### L AB17, [id number] ####Cuff Cutter: NICOLE BOWERS ([id number])[facility] ([address] Magnesium [Mass/Vol]on 08-18 Interpretation and review of laboratory results Normal [facility] No Panel Informationon 08-18 [facility] Nursing Noteon 08-18-2024 Nursing Note Normal [facility] Nursing Note Updated metro with patient vitals metro still does not have a bed metro will call when one is available Normal [facility] Nursing Note Patient refusing iv magnesium patient requesting shower ok per dr coppola for patient to take oral magnesium only and ok to shower Normal [facility] Progress Noteon 08-18-2024 Progress Note Normal [facility] Progress Note Normal [facility] Progress Note Normal [facility] 30on 08-17-2024 30 Normal [facility] 30 Normal [facility] 30 Normal [facility] [id number] 08-17-2024 [id number] Normal [facility] [id number] Normal [facility] CBC W Auto Differential pane l (Bld)on 08-17-2024 Basophils (Bld) [#/Vol] 0 10*3/uL 0.0 - 0.2 10*3/uL [facility] Basophils/100 WBC (Bld) 0.5 % 0.0 - 2.0 % [facility] Eosinophils (Bld) [#/Vol] 0.1 10*3/uL 0.0 - 0.5 10*3/uL [facility] Eosinophils/100 WBC (Bld) 1.2 % 0.0 - 6.0 % [facility] Erythrocyte distribution width (RBC) [Ratio] 13.2 % 11.5 - 15.0 % [facility] Hematocrit (Bld) [Volume fraction] 43.3 % 40.0 - 52.0 % [facility] Hemoglobin (Bld) [Mass/Vol] 14.3 g/dL 13.0 - 18.0 g/dL [facility] Immature granulocytes (Bld) [#/Vol] 0 10*3/uL NINF - 0.1 10*3/uL [facility] Immature granulocytes/100 WBC (Bld) 0.4 % 0.0 - 2.0 % [facility] Interpretation and review of laboratory results Abnormal [facility] Lymphocytes (Bld) [#/Vol] 2.4 10*3/uL 1.0 - 4.3 10*3/uL [facility] Lymphocytes/100 WBC (Bld) 32.3 % 15.0 - 45.0 % [facility] MCH (RBC) [Entitic mass] 33 pg 26.0 - 34.0 pg [facility] MCHC (RBC) [Mass/Vol] 33 % 30.5 - 36.0 % [facility] MCV (RBC) [Entitic vol] 100 fL High 77.0 - 99.0 fL [facility] Monocytes (Bld) [#/Vol] 0.7 10*3/uL 0.0 - 0.9 10*3/uL [facility] Monocytes/100 WBC (Bld) 8.8 % 5.0 - 13.0 % [facility] Neutrophils (Bld) [#/Vol] 4.2 10*3/uL 1.8 - 7.5 10*3/uL [facility] Neutrophils/100 WBC (Bld) 56.8 % 38.0 - 82.0 % [facility] Nucleated RBC/100 WBC (Bld) [Ratio] 0 % [facility] Platelet mean volume (Bld) [Entitic vol] 10.1 fL 9.0 - 12.7 fL [facility] Platelets (Bld) [#/Vol] 274 10*3/uL 140 - 440 10*3/uL [facility] RBC (Bld) [#/Vol] 4.33 10*6/uL Low 4.40 - 5.9 0 10*6/uL [facility] WBC (Bld) [#/Vol] 7.4 10*3/uL 3.6 - 10.7 10*3/uL [facility] CBC WITH AUTO DIFFERENTIALon 08-17-2024 Basophils (Bld) [#/Vol] 0.0 10*3/uL Normal 0.0-0.2 [facility] Comment on above: Performed By: #### L [id number] ####Cuff Cutter: NICOLE BOWERS ([id number])[address] Basophils/100 WBC (Bld) 0.5 % Normal 0.0-2.0 [facility] Comment on above: Performed By: #### L [id number] ####Cuff Cutter: NICOLE BOWERS ([id number])[facility] Eosinophils (Bld) [#/Vol] 0.1 10*3/uL Normal 0.0-0.5 [facility] Comment on above: Performed By: #### L [id number] ####Cuff Cutter: NICOLE BOWERS ([phone])[facility])[address] [place] [address] Eosinophils/100 WBC (Bld) 1.2 % Normal 0.0-6.0 [facility] Comment on above: Performed By: #### L [id number] ####Cuff Cutter: NICOLE BOWERS ([id number])[address] Erythrocyte distribution width (RBC) [Ratio] 13.2 % Normal 11.5-15.0 [facility] Comment on above: Performed By: #### L [id number] ####Cuff Cutter: NICOLE BOWERS ([id number])[facility])[address] [place] [address] Hematocrit (Bld) [Volume fraction] 43.3 % Normal 40.0-52.0 [facility] Comment on above: Performed By: #### L [id number] ####Cuff Cutter: NICOLE BOWERS ([id number])[address] Hemoglobin (Bld) [Mass/Vol] 14.3 g/dL Normal 13.0-18.0 [facility] Comment on above: Performed By: #### L [id number] ####Cuff Cutter: NICOLE BOWERS ([id number])[facility])[address] [place] [address] IMMATURE GRANS % 0.4 % Normal 0.0-2.0 [facility] Comment on above: Performed By: #### L [id number] ####Cuff Cutter: NICOLE BOWERS ([id number])[address] IMMATURE GRANS ABSOLUTE 0.0 10*3/uL Normal <0.1 [facility] Comment on above: Performed By: #### L [id number] ####Cuff Cutter: NICOLE BOWERS ([id number])[facility])[address] [place] [address] Lymphocytes (Bld) [#/Vol] 2.4 10*3/uL Normal 1.0-4.3 [facility] Comment on above: Performed By: #### L [id number] ####Cuff Cutter: NICOLE BOWERS ([id number])[facility])[address] [place] [address] Lymphocytes/100 WBC (Bld) 32.3 % Normal 15.0-45.0 [facility] Comment on above: Performed By: #### L [id number] ####Cuff Cutter: NICOLE BOWERS ([id number])[address] MCH (RBC) [Entitic mass] 33.0 pg Normal 26.0-34.0 [facility] Comment on above: Performed By: #### L [id number] ####Cuff Cutter: NICOLE BOWERS ([id number])[address] MCHC 33.0 % Normal 30.5-36.0 [facility] Comment on above: Performed By: #### L [id number] ####Cuff Cutter: NICOLE BOWERS ([id number])[facility])[address] [place] [address] MCV (RBC) [Entitic vol] 100.0 fL High 77.0-99.0 [facility] Comment on above: Performed By: #### L [id number] ####Cuff Cutter: NICOLE BOWERS ([id number])[facility])[address] [place] [address] Monocytes (Bld) [#/Vol] 0.7 10*3/uL Normal 0.0-0.9 [facility] Comment on above: Performed By: #### L [id number] ####Cuff Cutter: NICOLE BOWERS ([id number])[facility] ([facility])[address] [place] [address] Monocytes/100 WBC (Bld) 8.8 % Normal 5.0-13.0 [facility] Comment on above: Performed By: #### L [id number] ####Cuff Cutter: NICOLE BOWERS ([id number])[facility] ([facility])[address] [place] [address] NEUTROPHILS ABSOLUTE 4.2 10*3/uL Normal 1.8-7.5 [facility] Comment on above: Performed By: #### L [id number] ####Cuff Cutter: NICOLE BOWERS ([id number])[facility] ([facility])[address] [place] [address] Neutrophils/100 WBC (Bld) 56.8 % Normal 38.0-82.0 [facility] Comment on above: Performed By: #### L [id number] ####Cuff Cutter: INCOLE BOWERS ([id number])[facility] ([facility])[address] [place] [address] NRBC 0.0 /100 WBCs Normal 0.0-2.0 [facility] Comment on above: Performed By: #### L [id number] ####Cuff Cutter: NICOLE BOWERS ([id number])[facility] ([facility])[address] [place] [address] Platelet mean volume (Bld) [Entitic vol] 10.1 fL Normal 9.0-12.7 [facility] Comment on above: Performed By: #### L [id number] ####Cuff Cutter: NICOLE BOWERS ([id number])[facility] ([facility])[address] [place] [address] [place] Platelets (Bld) [#/Vol] 274 10*3/uL Normal 140-440 [facility] Comment on above: Performed By: #### L [id number] ####Cuff Cutter: NICOLE BOWERS ([id number])[facility] ([facility])[address] [place] [address] RBC (Bld) [#/Vol] 4.33 10*6/uL Low 4.40-5.90 [facility] Comment on above: Performed By: #### L [id number] ####Cuff Cutter: NICOLE BOWERS ([id number])[facility])[address] [place] [address] WBC (Bld) [#/Vol] 7.4 10*3/uL Normal 3.6-10.7 [facility] Comment on above: Performed By: #### L [id number] ####Cuff Cutter: NICOLE BOWERS ([id number])[facility])[address] [place] [address] COMPREHENSIVE METABOLIC PANE Ming 08-17-2024 Albumin [Mass/Vol] 2.9 g/dL Low 3.5-5.0 [facility] Comment on above: Performed By: #### L AB17, [id number] ####Cuff Cutter: NICOLE BOWERS ([id number])[facility] ([facility])[address] [place] [address] ALP [Catalytic activity/Vol] 188 U/L High 40-150 [facility] Comment on above: Performed By: #### L AB17, [id number] ####Cuff Cutter: NICOLE BOWERS ([id number])[facility])[address] [place] [address] ALT [Catalytic activity/Vol] 56 U/L High <40 [facility] Comment on above: Performed By: #### L AB17, [id number] ####Cuff Cutter: NICOLE BOWERS ([id number])[facility] ([facility])[address] [place] [address] Anion gap [Moles/Vol] 12 mmol/L Normal 3-13 [facility] Comment on above: Performed By: #### L AB17, [id number] ####Cuff Cutter: NICOLE BOWERS ([id number])[facility])[address] [place] [address] AST [Catalytic activity/Vol] 30 U/L Normal <34 [facility] Comment on above: Performed By: #### L AB17, [id number] ####Cuff Cutter: NICOLE BOWERS ([id number])[facility])[address] [place] [address] Bilirubin [Mass/Vol] 1.6 mg/dL High <1.2 [facility] Comment on above: Performed By: #### L AB17, [id number] ####Cuff Cutter: NICOLE BOWERS ([id number])[facility])[address] [place] [address] Calcium [Mass/Vol] 7.7 mg/dL Low 8.4-10.2 [facility] Comment on above: Performed By: #### L AB17, [id number] ####Cuff Cutter: NICOLE BOWERS ([id number])[facility])[address] [place] [address] Chloride [Moles/Vol] 97 mmol/L Low 98-107 [facility] Comment on above: Performed By: #### L AB17, [id number] ####Cuff Cutter: NICOLE BOWERS ([id number])[facility] ([facility])[address] [place] [address] CO2 [Moles/Vol] 30 mmol/L High 22-29 [facility] Comment on above: Performed By: #### L AB17, [id number] ####Cuff Cutter: NICOLE BOWERS ([id number])[facility])[address] [place] [address] Creatinine [Mass/Vol] 1.53 mg/dL High 0.72-1.25 [facility] Comment on above: Performed By: #### L AB17, [id number] ####Cuff Cutter: NICOLE BOWERS ([id number])[facility])[address] [place] [address] GLOMERULAR FILTRATION RATE ML/MIN/1.73 SQ M.PREDICTED 56.4 mL/min/1.73m*2 Low >60.0 [facility] Comment on above: Result Comment: Calc ulation based on the Chronic Kidney Disease Epidemiology Collaboration (CKD-EPI) equation refit without adjustment for race Performed By: #### L AB17, [id number] ####Cuff Cutter: NICOLE BOWERS ([id number])[facility])[address] [place] [address] Glucose [Mass/Vol] 102 mg/dL High 74-100 [facility] Comment on above: Performed By: #### L AB17, [id number] ####Cuff Cutter: NICOLE BOWERS ([id number])[facility])[address] [place] [address] Potassium [Moles/Vol] 3.3 mmol/L Low 3.5-5.1 [facility] Comment on above: Result Comment: [facility] potassium values may be up to 0.5 mmol/L lower than serum values. Performed By: #### L AB17, [id number] ####Cuff Cutter: NICOLE BOWERS ([id number])[facility])[address] [place] [address] Protein [Mass/Vol] 5.8 g/dL Low 6.4-8.3 [facility] Comment on above: Performed By: #### L AB17, [id number] ####Cuff Cutter: NICOLE BOWERS ([id number])[facility])[address] [place] [address] Sodium [Moles/Vol] 139 mmol/L Normal 136-145 [facility] Comment on above: Performed By: #### L AB17, [id number] ####Cuff Cutter: NICOLE BOWERS ([id number])[facility])[address] [place] [address] [place] Urea nitrogen [Mass/Vol] 32 mg/dL High 8-21 [facility] Comment on above: Performed By: #### L AB17, [id number] ####Cuff Cutter: NICOLE BOWERS ([id number])[facility])[address] [place] [address] Comprehensive metabolic 1998 panelon 08-17-2024 Albumin [Mass/Vol] 2.9 g/dL Low 3.5 - 5.0 g/dL [facility] ALP [Catalytic activity/Vol] 188 U/L High 40 - 150 U/L [facility] ALT [Catalytic activity/Vol] 56 U/L High NINF - 40 U/L [facility] Anion gap [Moles/Vol] 12 mmol/L 3 - 13 mmol/L [facility] AST [Catalytic activity/Vol] 30 U/L NINF - 34 U/L [facility] Bilirubin [Mass/Vol] 1.6 mg/dL High NINF - 1.2 mg/dL [facility] Calcium [Mass/Vol] 7.7 mg/dL Low 8.4 - 10. 2 mg/dL [facility] Chloride [Moles/Vol] 97 mmol/L Low 98 - 10 7 mmol/L [facility] CO2 [Moles/Vol] 30 mmol/L High 22 - 29 mmol/L [facility] Creatinine [Mass/Vol] 1.53 mg/dL High 0.72 - 1.25 mg/dL [facility] GFR/1.73 sq M.predicted (S/P/Bld) [Vol rate/Area] 56.4 mL/min Low - PINF [facility] Glucose [Mass/Vol] 102 mg/dL High 74 - 100 mg/dL [facility] Interpretation and review of laboratory results Abnormal [facility] Potassium [Moles/Vol] 3.3 mmol/L Low 3.5 - 5.1 mmol/L [facility] Protein [Mass/Vol] 5.8 g/dL Low 6.4 - 8.3 g/dL [facility] Sodium [Moles/Vol] 139 mmol/L 136 - 145 mmol/L [facility] Urea nitrogen [Mass/Vol] 32 mg/dL High 8 - 21 mg/dL [facility] - Chemistry and C hemistry - challengeon 08-17-2024 Magnesium [Mass/Vol] 1.3 mg/dL Low 1.6 - 2 .6 mg/dL [facility] MAGNESIUMon 08-17-2024 Magnesium [Mass/Vol] 1.3 mg/dL Low 1.6-2.6 [facility] Comment on above: Result Comment: ORDE R COMMENTS:Higher values can be expected in females during menses. Performed By: #### L [id number], [id number] ####Cuff Cutter: NICOLE BOWERS ([id number])[facility] ([address] Magnesium [Mass/Vol]on 08-17 Interpretation and review of laboratory results Abnormal [facility] Nursing Noteon 08-17-2024 Nursing Note Normal [facility] Nursing Note Normal [facility] Nursing Note RN notified Dr. Asa vasquez of potassium 3.3 and mag 1.3. waiting for repletion orders. Pt refusing mag IV bolus. RN messaged Dr. Samuel asking for oral option instead. Pt refusing potassium until after he eats his breakfast. Normal [facility] Progress Noteon 08-17-2024 Progress Note Normal [facility] Progress Note Normal [facility] Progress Note Normal [facility] 30on 08-16-2024 30 Normal [facility] CBC W Auto Differential pane l (Bld)on 08-16-2024 Basophils (Bld) [#/Vol] 0 10*3/uL 0.0 - 0.2 10*3/uL [facility] Basophils/100 WBC (Bld) 0.5 % 0.0 - 2.0 % [facility] Eosinophils (Bld) [#/Vol] 0 10*3/uL 0.0 - 0.5 10*3/uL [facility] Eosinophils/100 WBC (Bld) 0.6 % 0.0 - 6.0 % [facility] Erythrocyte distribution width (RBC) [Ratio] 13.2 % 11.5 - 15.0 % [facility] Hematocrit (Bld) [Volume fraction] 39.6 % Low 40.0 - 52.0 % [facility] Hemoglobin (Bld) [Mass/Vol] 13.2 g/dL 13.0 - 18.0 g/dL [facility] Immature granulocytes (Bld) [#/Vol] 0 10*3/uL NINF - 0.1 10*3/uL [facility] Immature granulocytes/100 WBC (Bld) 0.5 % 0.0 - 2.0 % [facility] Interpretation and review of laboratory results Abnormal [facility] Lymphocytes (Bld) [#/Vol] 1.7 10*3/uL 1.0 - 4.3 10*3/uL [facility] Lymphocytes/100 WBC (Bld) 27.2 % 15.0 - 45.0 % [facility] MCH (RBC) [Entitic mass] 33.4 pg 26.0 - 34.0 pg [facility] MCHC (RBC) [Mass/Vol] 33.3 % 30.5 - 36.0 % [facility] MCV (RBC) [Entitic vol] 100.3 fL High 77.0 - 99.0 fL [facility] Monocytes (Bld) [#/Vol] 0.4 10*3/uL 0.0 - 0.9 10*3/uL [facility] Monocytes/100 WBC (Bld) 5.8 % 5.0 - 13.0 % [facility] Neutrophils (Bld) [#/Vol] 4 10*3/uL 1.8 - 7.5 10*3/uL [facility] Neutrophils/100 WBC (Bld) 65.4 % 38.0 - 82.0 % [facility] Nucleated RBC/100 WBC (Bld) [Ratio] 0 % [facility] Platelet mean volume (Bld) [Entitic vol] 9.7 fL 9.0 - 12.7 fL [facility] Platelets (Bld) [#/Vol] 242 10*3/uL 140 - 440 10*3/uL [facility] RBC (Bld) [#/Vol] 3.95 10*6/uL Low 4.40 - 5.9 0 10*6/uL [facility] WBC (Bld) [#/Vol] 6.2 10*3/uL 3.6 - 10.7 10*3/uL [facility] CBC WITH AUTO DIFFERENTIALon 08-16-2024 Basophils (Bld) [#/Vol] 0.0 10*3/uL Normal 0.0-0.2 [facility] Comment on above: Performed By: #### L [id number] ####Cuff Cutter: NICOLE BOWERS ([id number])[facility] ([address] Basophils/100 WBC (Bld) 0.5 % Normal 0.0-2.0 [facility] Comment on above: Performed By: #### L [id number] ####Cuff Cutter: NICOLE BOWERS ([id number])[facility])[address] [place] [address] Eosinophils (Bld) [#/Vol] 0.0 10*3/uL Normal 0.0-0.5 [facility] Comment on above: Performed By: #### L [id number] ####Cuff Cutter: NICOLE BOWERS ([id number])[facility])[address] [place] [address] Eosinophils/100 WBC (Bld) 0.6 % Normal 0.0-6.0 [facility] Comment on above: Performed By: #### L [id number] ####Cuff Cutter: NICOLE BOWERS ([id number])[address] Erythrocyte distribution width (RBC) [Ratio] 13.2 % Normal 11.5-15.0 [facility] Comment on above: Performed By: #### L [id number] ####Cuff Cutter: NICOLE BOWERS ([id number])[address] Hematocrit (Bld) [Volume fraction] 39.6 % Low 40.0-52.0 [facility] Comment on above: Performed By: #### L [id number] ####Cuff Cutter: NICOLE BOWERS ([id number])[address] Hemoglobin (Bld) [Mass/Vol] 13.2 g/dL Normal 13.0-18.0 [facility] Comment on above: Performed By: #### L [id number] ####Cuff Cutter: NICOLE BOWERS ([id number])[address] IMMATURE GRANS % 0.5 % Normal 0.0-2.0 [facility] Comment on above: Performed By: #### L [id number] ####Cuff Cutter: NICOLE BOWERS ([id number])[facility] IMMATURE GRANS ABSOLUTE 0.0 10*3/uL Normal <0.1 [facility] Comment on above: Performed By: #### L [id number] ####Cuff Cutter: NICOLE BOWERS ([id number])[facility])[address] [place] [address] Lymphocytes (Bld) [#/Vol] 1.7 10*3/uL Normal 1.0-4.3 [facility] Comment on above: Performed By: #### L [id number] ####Cuff Cutter: NICOLE BOWERS ([id number])[address] Lymphocytes/100 WBC (Bld) 27.2 % Normal 15.0-45.0 [facility] Comment on above: Performed By: #### L [id number] ####Cuff Cutter: NICOLE BOWERS ([id number])[facility])[address] [place] [address] MCH (RBC) [Entitic mass] 33.4 pg Normal 26.0-34.0 [facility] Comment on above: Performed By: #### L [id number] ####Cuff Cutter: NICOLE BOWERS ([id number])[address] MCHC 33.3 % Normal 30.5-36.0 [facility] Comment on above: Performed By: #### L [id number] ####Cuff Cutter: NICOLE BOWERS ([id number])[facility])[address] [place] [address] MCV (RBC) [Entitic vol] 100.3 fL High 77.0-99.0 [facility] Comment on above: Performed By: #### L [id number] ####Cuff Cutter: NICOLE BOWERS ([id number])[facility])[address] [place] [address] Monocytes (Bld) [#/Vol] 0.4 10*3/uL Normal 0.0-0.9 [facility] Comment on above: Performed By: #### L [id number] ####Cuff Cutter: NICOLE BOWERS ([id number])[facility])[address] [place] [address] Monocytes/100 WBC (Bld) 5.8 % Normal 5.0-13.0 [facility] Comment on above: Performed By: #### L [id number] ####Cuff Cutter: NICOLE BOWERS ([id number])[facility] ([facility])[address] [place] [address] NEUTROPHILS ABSOLUTE 4.0 10*3/uL Normal 1.8-7.5 [facility] Comment on above: Performed By: #### L [id number] ####Cuff Cutter: NICOLE BOWERS ([id number])[facility])[address] [place] [address] Neutrophils/100 WBC (Bld) 65.4 % Normal 38.0-82.0 [facility] Comment on above: Performed By: #### L [id number] ####Cuff Cutter: NICOLE BOWERS ([id number])[facility] ([facility])[address] [place] [address] NRBC 0.0 /100 WBCs Normal 0.0-2.0 [facility] Comment on above: Performed By: #### L [id number] ####Cuff Cutter: NICOLE BOWERS ([id number])[facility])[address] [place] [address] Platelet mean volume (Bld) [Entitic vol] 9.7 fL Normal 9.0-12.7 [facility] Comment on above: Performed By: #### L [id number] ####Cuff Cutter: NICOLE BOWERS ([id number])[facility])[address] [place] [address] Platelets (Bld) [#/Vol] 242 10*3/uL Normal 140-440 [facility] Comment on above: Performed By: #### L [id number] ####Cuff Cutter: NICOLE BOWERS ([id number])[facility] ([facility])[address] [place] [address] RBC (Bld) [#/Vol] 3.95 10*6/uL Low 4.40-5.90 [facility] Comment on above: Performed By: #### L [id number] ####Cuff Cutter: NICOLE BOWERS ([id number])[facility] ([facility])[address] [place] [address] WBC (Bld) [#/Vol] 6.2 10*3/uL Normal 3.6-10.7 [facility] Comment on above: Performed By: #### L [id number] ####Cuff Cutter: NICOLE BOWERS ([id number])[facility])[address] [place] [address] COMPREHENSIVE METABOLIC PANE Ming 08-16-2024 Albumin [Mass/Vol] 2.9 g/dL Low 3.5-5.0 [facility] Comment on above: Performed By: #### L [id number] ####Cuff Cutter: NICOLE BOWERS ([id number])[facility] ([facility])[address] [place] [address] ALP [Catalytic activity/Vol] 193 U/L High 40-150 [facility] Comment on above: Performed By: #### L [id number] ####Cuff Cutter: NICOLE BOWERS ([id number])[facility])[address] [place] [address] ALT [Catalytic activity/Vol] 64 U/L High <40 [facility] Comment on above: Performed By: #### L [id number] ####Cuff Cutter: NICOLE BOWERS ([id number])[facility])[address] [place] [address] Anion gap [Moles/Vol] 14 mmol/L High 3-13 [facility] Comment on above: Performed By: #### L [id number] ####Cuff Cutter: NICOLE BOWERS ([id number])[facility])[address] [place] [address] AST [Catalytic activity/Vol] 35 U/L High <34 [facility] Comment on above: Performed By: #### L [id number] ####Cuff Cutter: NICOLE BOWERS ([id number])[facility])[address] [place] [address] Bilirubin [Mass/Vol] 1.8 mg/dL High <1.2 [facility] Comment on above: Performed By: #### L [id number] ####Cuff Cutter: NICOLE BOWERS ([id number])[facility] ([facility])[address] [place] [address] Calcium [Mass/Vol] 7.8 mg/dL Low 8.4-10.2 [facility] Comment on above: Performed By: #### L [id number] ####Cuff Cutter: NICOLE BOWERS ([id number])[facility] ([facility])[address] [place] [address] Chloride [Moles/Vol] 100 mmol/L Normal 98-107 [facility] Comment on above: Performed By: #### L [id number] ####Cuff Cutter: NICOLE BOWERS ([id number])[facility] ([facility])[address] [place] [address] CO2 [Moles/Vol] 27 mmol/L Normal 22-29 [facility] Comment on above: Performed By: #### L [id number] ####Cuff Cutter: NICOLE BOWERS ([id number])[facility])[address] [place] [address] Creatinine [Mass/Vol] 1.81 mg/dL High 0.72-1.25 [facility] Comment on above: Performed By: #### L [id number] ####Cuff Cutter: NICOLE BOWERS ([id number])[facility])[address] [place] [address] GLOMERULAR FILTRATION RATE ML/MIN/1.73 SQ M.PREDICTED 46.1 mL/min/1.73m*2 Low >60.0 [facility] Comment on above: Result Comment: Calc ulation based on the Chronic Kidney Disease Epidemiology Collaboration (CKD-EPI) equation refit without adjustment for race Performed By: #### L [id number] ####Cuff Cutter: NICOLE BOWERS ([id number])[facility])[address] [place] [address] Glucose [Mass/Vol] 190 mg/dL High 74-100 [facility] Comment on above: Performed By: #### L [id number] ####Cuff Cutter: NICOLE BOWERS ([id number])[facility])[address] [place] [address] Potassium [Moles/Vol] 3.2 mmol/L Low 3.5-5.1 [facility] Comment on above: Result Comment: [facility] potassium values may be up to 0.5 mmol/L lower than serum values. Performed By: #### L [id number] ####Cuff Cutter: NICOLE BOWERS ([id number])[facility])[address] [place] [address] Protein [Mass/Vol] 5.6 g/dL Low 6.4-8.3 [facility] Comment on above: Performed By: #### L [id number] ####Cuff Cutter: NICOLE BOWERS ([id number])[facility])[address] [place] [address] Sodium [Moles/Vol] 141 mmol/L Normal 136-145 [facility] Comment on above: Performed By: #### L [id number] ####Cuff Cutter: NICOLE BOWERS ([id number])[facility])[address] [place] [address] Urea nitrogen [Mass/Vol] 33 mg/dL High 8-21 [facility] Comment on above: Performed By: #### L [id number] ####Cuff Cutter: NICOLE BOWERS ([id number])[facility])[address] [place] [address] Comprehensive metabolic 1998 panelon 08-16-2024 Albumin [Mass/Vol] 2.9 g/dL Low 3.5 - 5.0 g/dL [facility] ALP [Catalytic activity/Vol] 193 U/L High 40 - 150 U/L [facility] ALT [Catalytic activity/Vol] 64 U/L High NINF - 40 U/L [facility] Anion gap [Moles/Vol] 14 mmol/L High 3 - 13 mmol/L [facility] AST [Catalytic activity/Vol] 35 U/L High NINF - 34 U/L [facility] Bilirubin [Mass/Vol] 1.8 mg/dL High NINF - 1.2 mg/dL [facility] Calcium [Mass/Vol] 7.8 mg/dL Low 8.4 - 10. 2 mg/dL [facility] Chloride [Moles/Vol] 100 mmol/L 98 - 10 7 mmol/L [facility] CO2 [Moles/Vol] 27 mmol/L 22 - 29 mmol/L [facility] Creatinine [Mass/Vol] 1.81 mg/dL High 0.72 - 1.25 mg/dL [facility] GFR/1.73 sq M.predicted (S/P/Bld) [Vol rate/Area] 46.1 mL/min Low - PINF [facility] Glucose [Mass/Vol] 190 mg/dL High 74 - 100 mg/dL [facility] Interpretation and review of laboratory results Abnormal [facility] Potassium [Moles/Vol] 3.2 mmol/L Low 3.5 - 5.1 mmol/L [facility] Protein [Mass/Vol] 5.6 g/dL Low 6.4 - 8.3 g/dL [facility] Sodium [Moles/Vol] 141 mmol/L 136 - 145 mmol/L [facility] Urea nitrogen [Mass/Vol] 33 mg/dL High 8 - 21 mg/dL [facility] Nursing Noteon 08-16-2024 Nursing Note RN notified Dr. Peterson of 17 beat run of [facility]. Pt asymptomatic. Mag level added to morning labs. Normal [facility] Progress Noteon 08-16-2024 Progress Note Normal [facility] Progress Note Normal [facility] Progress Note Normal [facility] 30on 08-15-2024 30 Normal [facility] 30 Normal [facility] CBC W Auto Differential pane l (Bld)on 08-15-2024 Basophils (Bld) [#/Vol] 0 10*3/uL 0.0 - 0.2 10*3/uL [facility] Basophils/100 WBC (Bld) 0.4 % 0.0 - 2.0 % [facility] Eosinophils (Bld) [#/Vol] 0.1 10*3/uL 0.0 - 0.5 10*3/uL [facility] Eosinophils/100 WBC (Bld) 0.7 % 0.0 - 6.0 % [facility] Erythrocyte distribution width (RBC) [Ratio] 13.3 % 11.5 - 15.0 % [facility] Hematocrit (Bld) [Volume fraction] 43.5 % 40.0 - 52.0 % [facility] Hemoglobin (Bld) [Mass/Vol] 14.7 g/dL 13.0 - 18.0 g/dL [facility] Immature granulocytes (Bld) [#/Vol] 0 10*3/uL NINF - 0.1 10*3/uL [facility] Immature granulocytes/100 WBC (Bld) 0.2 % 0.0 - 2.0 % [facility] Interpretation and review of laboratory results Abnormal [facility] Lymphocytes (Bld) [#/Vol] 3.6 10*3/uL 1.0 - 4.3 10*3/uL [facility] Lymphocytes/100 WBC (Bld) 43.9 % 15.0 - 45.0 % [facility] MCH (RBC) [Entitic mass] 33.6 pg 26.0 - 34.0 pg [facility] MCHC (RBC) [Mass/Vol] 33.8 % 30.5 - 36.0 % [facility] MCV (RBC) [Entitic vol] 99.3 fL High 77.0 - 99.0 fL [facility] Monocytes (Bld) [#/Vol] 0.7 10*3/uL 0.0 - 0.9 10*3/uL [facility] Monocytes/100 WBC (Bld) 8.6 % 5.0 - 13.0 % [facility] Neutrophils (Bld) [#/Vol] 3.7 10*3/uL 1.8 - 7.5 10*3/uL [facility] Neutrophils/100 WBC (Bld) 46.2 % 38.0 - 82.0 % [facility] Nucleated RBC/100 WBC (Bld) [Ratio] 0 % [facility] Platelet mean volume (Bld) [Entitic vol] 10.2 fL 9.0 - 12.7 fL [facility] Platelets (Bld) [#/Vol] 258 10*3/uL 140 - 440 10*3/uL [facility] RBC (Bld) [#/Vol] 4.38 10*6/uL Low 4.40 - 5.9 0 10*6/uL [facility] WBC (Bld) [#/Vol] 8.1 10*3/uL 3.6 - 10.7 10*3/uL [facility] CBC WITH AUTO DIFFERENTIALon 08-15-2024 Basophils (Bld) [#/Vol] 0.0 10*3/uL Normal 0.0-0.2 [facility] Comment on above: Performed By: #### L [id number] ####Cuff Cutter: NICOLE BOWERS ([id number])[facility])[address] [place] [address] Basophils/100 WBC (Bld) 0.4 % Normal 0.0-2.0 [facility] Comment on above: Performed By: #### L [id number] ####Cuff Cutter: NICOLE BOWERS ([id number])[facility])[address] [place] [address] Eosinophils (Bld) [#/Vol] 0.1 10*3/uL Normal 0.0-0.5 [facility] Comment on above: Performed By: #### L [id number] ####Cuff Cutter: NICOLE BOWERS ([id number])[facility])[address] [place] [address] Eosinophils/100 WBC (Bld) 0.7 % Normal 0.0-6.0 [facility] Comment on above: Performed By: #### L [id number] ####Cuff Cutter: NICOLE BOWERS ([id number])[facility])[address] [place] [address] Erythrocyte distribution width (RBC) [Ratio] 13.3 % Normal 11.5-15.0 [facility] Comment on above: Performed By: #### L [id number] ####Cuff Cutter: NICOLE BOWERS ([id number])[facility] ([facility])[address] [place] [address] Hematocrit (Bld) [Volume fraction] 43.5 % Normal 40.0-52.0 [facility] Comment on above: Performed By: #### L [id number] ####Cuff Cutter: NICOLE BOWERS ([id number])[facility])[address] [place] [address] Hemoglobin (Bld) [Mass/Vol] 14.7 g/dL Normal 13.0-18.0 [facility] Comment on above: Performed By: #### L [id number] ####Cuff Cutter: NICOLE BOWERS ([id number])[facility])[address] [place] [address] IMMATURE GRANS % 0.2 % Normal 0.0-2.0 [facility] Comment on above: Performed By: #### L [id number] ####Cuff Cutter: NICOLE BOWERS ([id number])[facility])[address] [place] [address] IMMATURE GRANS ABSOLUTE 0.0 10*3/uL Normal <0.1 [facility] Comment on above: Performed By: #### L [id number] ####Cuff Cutter: NICOLE BOWERS ([id number])[facility])[address] [place] [address] Lymphocytes (Bld) [#/Vol] 3.6 10*3/uL Normal 1.0-4.3 [facility] Comment on above: Performed By: #### L [id number] ####Cuff Cutter: NICOLE BOWERS ([id number])[facility])[address] [place] [address] Lymphocytes/100 WBC (Bld) 43.9 % Normal 15.0-45.0 [facility] Comment on above: Performed By: #### L [id number] ####Cuff Cutter: NICOLE BOWERS ([id number])[facility])[address] [place] [address] MCH (RBC) [Entitic mass] 33.6 pg Normal 26.0-34.0 [facility] Comment on above: Performed By: #### L [id number] ####Cuff Cutter: NICOLE BOWERS ([id number])[facility])[address] [place] [address] MCHC 33.8 % Normal 30.5-36.0 [facility] Comment on above: Performed By: #### L [id number] ####Cuff Cutter: NICOLE BOWERS ([id number])[facility])[address] [place] [address] MCV (RBC) [Entitic vol] 99.3 fL High 77.0-99.0 [facility] Comment on above: Performed By: #### L [id number] ####Cuff Cutter: NICOLE BOWERS ([id number])[facility])[address] [place] [address] Monocytes (Bld) [#/Vol] 0.7 10*3/uL Normal 0.0-0.9 [facility] Comment on above: Performed By: #### L [id number] ####Cuff Cutter: NICOLE BOWERS ([id number])[facility])[address] [place] [address] Monocytes/100 WBC (Bld) 8.6 % Normal 5.0-13.0 [facility] Comment on above: Performed By: #### L [id number] ####Cuff Cutter: NICOLE BOWERS ([id number])[facility])[address] [place] [address] NEUTROPHILS ABSOLUTE 3.7 10*3/uL Normal 1.8-7.5 [facility] Comment on above: Performed By: #### L [id number] ####Cuff Cutter: NICOLE BOWERS ([id number])[facility])[address] [place] [address] Neutrophils/100 WBC (Bld) 46.2 % Normal 38.0-82.0 [facility] Comment on above: Performed By: #### L [id number] ####Cuff Cutter: NICOLE BOWERS ([id number])[facility] ([facility])[address] [place] [address] NRBC 0.0 /100 WBCs Normal 0.0-2.0 [facility] Comment on above: Performed By: #### L [id number] ####Cuff Cutter: NICOLE BOWERS ([id number])[facility] ([facility])[address] [place] [address] Platelet mean volume (Bld) [Entitic vol] 10.2 fL Normal 9.0-12.7 [facility] Comment on above: Performed By: #### L [id number] ####Cuff Cutter: NICOLE BOWERS ([id number])[facility] ([facility])[address] [place] [address] Platelets (Bld) [#/Vol] 258 10*3/uL Normal 140-440 [facility] Comment on above: Performed By: #### L [id number] ####Cuff Cutter: NICOLE BOWERS ([id number])[facility])[address] [place] [address] RBC (Bld) [#/Vol] 4.38 10*6/uL Low 4.40-5.90 [facility] Comment on above: Performed By: #### L [id number] ####Cuff Cutter: NICOLE BOWERS ([id number])[facility])[address] [place] [address] WBC (Bld) [#/Vol] 8.1 10*3/uL Normal 3.6-10.7 [facility] Comment on above: Performed By: #### L [id number] ####Cuff Cutter: NICOLE BOWERS ([id number])[facility])[address] [place] [address] COMPREHENSIVE METABOLIC PANE Ming 08-15-2024 Albumin [Mass/Vol] 3.1 g/dL Low 3.5-5.0 [facility] Comment on above: Performed By: #### L [id number] ####Cuff Cutter: NICOLE BOWERS ([id number])[facility] ([facility])[address] [place] [address] ALP [Catalytic activity/Vol] 223 U/L High 40-150 [facility] Comment on above: Performed By: #### L [id number] ####Cuff Cutter: NICOLE BOWERS ([id number])[facility] ([facility])[address] [place] [address] [place] ALT [Catalytic activity/Vol] 69 U/L High <40 [facility] Comment on above: Performed By: #### L [id number] ####Cuff Cutter: NICOLE BOWERS ([id number])[facility] ([facility])[address] [place] [address] Anion gap [Moles/Vol] 11 mmol/L Normal 3-13 [facility] Comment on above: Performed By: #### L [id number] ####Cuff Cutter: NICOLE BOWERS ([id number])[facility] ([facility])[address] [place] [address] AST [Catalytic activity/Vol] 32 U/L Normal <34 [facility] Comment on above: Performed By: #### L [id number] ####Cuff Cutter: NICOLE BOWERS ([id number])[facility] ([facility])[address] [place] [address] Bilirubin [Mass/Vol] 1.9 mg/dL High <1.2 [facility] Comment on above: Performed By: #### L [id number] ####Cuff Cutter: NICOLE BOWERS ([id number])[facility] ([facility])[address] [place] [address] Calcium [Mass/Vol] 8.3 mg/dL Low 8.4-10.2 [facility] Comment on above: Performed By: #### L [id number] ####Cuff Cutter: NICOLE BOWERS ([id number])[facility] ([facility])[address] [place] [address] [place] Chloride [Moles/Vol] 102 mmol/L Normal 98-107 [facility] Comment on above: Performed By: #### L [id number] ####Cuff Cutter: NICOLE BOWERS ([id number])[facility])[address] [place] [address] CO2 [Moles/Vol] 24 mmol/L Normal 22-29 [facility] Comment on above: Performed By: #### L [id number] ####Cuff Cutter: NICOLE BOWERS ([id number])[facility])[address] [place] [address] Creatinine [Mass/Vol] 1.94 mg/dL High 0.72-1.25 [facility] Comment on above: Performed By: #### L [id number] ####Cuff Cutter: NICOLE BOWERS ([id number])[facility])[address] [place] [address] GLOMERULAR FILTRATION RATE ML/MIN/1.73 SQ M.PREDICTED 42.4 mL/min/1.73m*2 Low >60.0 [facility] Comment on above: Result Comment: Calc ulation based on the Chronic Kidney Disease Epidemiology Collaboration (CKD-EPI) equation refit without adjustment for race Performed By: #### L [id number] ####Cuff Cutter: NICOLE BOWERS ([id number])[facility])[address] [place] [address] Glucose [Mass/Vol] 104 mg/dL High 74-100 [facility] Comment on above: Performed By: #### L [id number] ####Cuff Cutter: NICOLE BOWERS ([id number])[facility])[address] [place] [address] Potassium [Moles/Vol] 3.6 mmol/L Normal 3.5-5.1 [facility] Comment on above: Result Comment: [facility] potassium values may be up to 0.5 mmol/L lower than serum values. Performed By: #### L [id number] ####Cuff Cutter: NICOLE BOWERS ([id number])[facility])[address] [place] [address] Protein [Mass/Vol] 6.0 g/dL Low 6.4-8.3 [facility] Comment on above: Performed By: #### L [id number] ####Cuff Cutter: NICOLE BOWERS ([id number])[facility] ([facility])[address] [place] [address] Sodium [Moles/Vol] 137 mmol/L Normal 136-145 [facility] Comment on above: Performed By: #### L [id number] ####Cuff Cutter: NICOLE BOWERS ([id number])[facility] ([facility])[address] [place] [address] Urea nitrogen [Mass/Vol] 37 mg/dL High 8-21 [facility] Comment on above: Performed By: #### L [id number] ####Cuff Cutter: NICOLE BOWERS ([id number])[facility] ([facility])[address] [place] [address] Comprehensive metabolic 1998 panelon 08-15-2024 Albumin [Mass/Vol] 3.1 g/dL Low 3.5 - 5.0 g/dL [facility] ALP [Catalytic activity/Vol] 223 U/L High 40 - 150 U/L [facility] ALT [Catalytic activity/Vol] 69 U/L High NINF - 40 U/L [facility] Anion gap [Moles/Vol] 11 mmol/L 3 - 13 mmol/L [facility] AST [Catalytic activity/Vol] 32 U/L [facility] - 34 U/L [facility] Bilirubin [Mass/Vol] 1.9 mg/dL High NINF - 1.2 mg/dL [facility] Calcium [Mass/Vol] 8.3 mg/dL Low 8.4 - 10. 2 mg/dL [facility] Chloride [Moles/Vol] 102 mmol/L 98 - 10 7 mmol/L [facility] CO2 [Moles/Vol] 24 mmol/L 22 - 29 mmol/L [facility] Creatinine [Mass/Vol] 1.94 mg/dL High 0.72 - 1.25 mg/dL [facility] GFR/1.73 sq M.predicted (S/P/Bld) [Vol rate/Area] 42.4 mL/min Low - PINF [facility] Glucose [Mass/Vol] 104 mg/dL High 74 - 100 mg/dL [facility] Interpretation and review of laboratory results Abnormal [facility] Potassium [Moles/Vol] 3.6 mmol/L 3.5 - 5.1 mmol/L [facility] Protein [Mass/Vol] 6 g/dL Low 6.4 - 8.3 g/dL [facility] Sodium [Moles/Vol] 137 mmol/L 136 - 145 mmol/L [facility] Urea nitrogen [Mass/Vol] 37 mg/dL High 8 - 21 mg/dL [facility] Health Consulton 08-15-2024 Consult Normal [facility] Progress Noteon 08-15-2024 [facility] Progress Note Normal [facility] Progress [facility] Normal [facility] Progress Note Normal [facility] CBC W Auto Differential pane l (Bld)on 08-14-2024 Basophils (Bld) [#/Vol] 0 10*3/uL 0.0 - 0.2 10*3/uL [facility] Basophils/100 WBC (Bld) 0.3 % 0.0 - 2.0 % [facility] Eosinophils (Bld) [#/Vol] 0 10*3/uL 0.0 - 0.5 10*3/uL [facility] Eosinophils/100 WBC (Bld) 0.4 % 0.0 - 6.0 % [facility] Erythrocyte distribution width (RBC) [Ratio] 13.3 % 11.5 - 15.0 % [facility] Hematocrit (Bld) [Volume fraction] 41.7 % 40.0 - 52.0 % [facility] Hemoglobin (Bld) [Mass/Vol] 13.8 g/dL 13.0 - 18.0 g/dL [facility] Immature granulocytes (Bld) [#/Vol] 0 10*3/uL NINF - 0.1 10*3/uL [facility] Immature granulocytes/100 WBC (Bld) 0.4 % 0.0 - 2.0 % [facility] Interpretation and review of laboratory results Abnormal [facility] Lymphocytes (Bld) [#/Vol] 1.9 10*3/uL 1.0 - 4.3 10*3/uL [facility] Lymphocytes/100 WBC (Bld) 25.6 % 15.0 - 45.0 % [facility] MCH (RBC) [Entitic mass] 33.4 pg 26.0 - 34.0 pg [facility] MCHC (RBC) [Mass/Vol] 33.1 % 30.5 - 36.0 % [facility] MCV (RBC) [Entitic vol] 101 fL High 77.0 - 99.0 fL [facility] Monocytes (Bld) [#/Vol] 0.6 10*3/uL 0.0 - 0.9 10*3/uL [facility] Monocytes/100 WBC (Bld) 8.5 % 5.0 - 13.0 % [facility] Neutrophils (Bld) [#/Vol] 4.7 10*3/uL 1.8 - 7.5 10*3/uL [facility] Neutrophils/100 WBC (Bld) 64.8 % 38.0 - 82.0 % [facility] Nucleated RBC/100 WBC (Bld) [Ratio] 0 % [facility] Platelet mean volume (Bld) [Entitic vol] 10.2 fL 9.0 - 12.7 fL [facility] Platelets (Bld) [#/Vol] 258 10*3/uL 140 - 440 10*3/uL [facility] RBC (Bld) [#/Vol] 4.13 10*6/uL Low 4.40 - 5.9 0 10*6/uL [facility] WBC (Bld) [#/Vol] 7.3 10*3/uL 3.6 - 10.7 10*3/uL [facility] CBC WITH AUTO DIFFERENTIALon 08-14-2024 Basophils (Bld) [#/Vol] 0.0 10*3/uL Normal 0.0-0.2 [facility] Comment on above: Performed By: #### L [id number] ####Cuff Cutter: NICOLE BOWERS ([id number])[address] Basophils/100 WBC (Bld) 0.3 % Normal 0.0-2.0 [facility] Comment on above: Performed By: #### L [id number] ####Cuff Cutter: NICOLE BOWERS ([id number])[facility] ([facility])[address] [place] [address] Eosinophils (Bld) [#/Vol] 0.0 10*3/uL Normal 0.0-0.5 [facility] Comment on above: Performed By: #### L [id number] ####Cuff Cutter: NICOLE BOWERS ([id number])[facility])[address] [place] [address] Eosinophils/100 WBC (Bld) 0.4 % Normal 0.0-6.0 [facility] Comment on above: Performed By: #### L [id number] ####Cuff Cutter: NICOLE BOWERS ([id number])[facility])[address] [place] [address] Erythrocyte distribution width (RBC) [Ratio] 13.3 % Normal 11.5-15.0 [facility] Comment on above: Performed By: #### L [id number] ####Cuff Cutter: NICOLE BOWERS ([id number])[facility])[address] [place] [address] Hematocrit (Bld) [Volume fraction] 41.7 % Normal 40.0-52.0 [facility] Comment on above: Performed By: #### L [id number] ####Cuff Cutter: NICOLE BOWERS ([id number])[address] Hemoglobin (Bld) [Mass/Vol] 13.8 g/dL Normal 13.0-18.0 [facility] Comment on above: Performed By: #### L [id number] ####Cuff Cutter: NICOLE BOWERS ([id number])[facility])[address] [place] [address] IMMATURE GRANS % 0.4 % Normal 0.0-2.0 [facility] Comment on above: Performed By: #### L [id number] ####Cuff Cutter: NICOLE BOWERS ([id number])[facility])[address] [place] [address] IMMATURE GRANS ABSOLUTE 0.0 10*3/uL Normal <0.1 [facility] Comment on above: Performed By: #### L [id number] ####Cuff Cutter: NICOLE BOWERS ([id number])[facility])[address] [place] [address] Lymphocytes (Bld) [#/Vol] 1.9 10*3/uL Normal 1.0-4.3 [facility] Comment on above: Performed By: #### L [id number] ####Cuff Cutter: NICOLE BOWERS ([id number])[facility])[address] [place] [address] Lymphocytes/100 WBC (Bld) 25.6 % Normal 15.0-45.0 [facility] Comment on above: Performed By: #### L [id number] ####Cuff Cutter: NICOLE BOWERS ([id number])[facility])[address] [place] [address] MCH (RBC) [Entitic mass] 33.4 pg Normal 26.0-34.0 [facility] Comment on above: Performed By: #### L [id number] ####Cuff Cutter: NICOLE BOWERS ([id number])[facility])[address] [place] [address] MCHC 33.1 % Normal 30.5-36.0 [facility] Comment on above: Performed By: #### L [id number] ####Cuff Cutter: NICOLE BOWERS ([id number])[facility])[address] [place] [address] MCV (RBC) [Entitic vol] 101.0 fL High 77.0-99.0 [facility] Comment on above: Performed By: #### L [id number] ####Cuff Cutter: NICOLE BOWERS ([id number])[facility])[address] [place] [address] Monocytes (Bld) [#/Vol] 0.6 10*3/uL Normal 0.0-0.9 [facility] Comment on above: Performed By: #### L [id number] ####Cuff Cutter: NICOLE BOWERS ([id number])[facility] ([facility])[address] [place] [address] Monocytes/100 WBC (Bld) 8.5 % Normal 5.0-13.0 [facility] Comment on above: Performed By: #### L [id number] ####Cuff Cutter: NICOLE BOWERS ([id number])[facility] ([facility])[address] [place] [address] NEUTROPHILS ABSOLUTE 4.7 10*3/uL Normal 1.8-7.5 [facility] Comment on above: Performed By: #### L [id number] ####Cuff Cutter: NICOLE BOWERS ([id number])[facility] ([facility])[address] [place] [address] Neutrophils/100 WBC (Bld) 64.8 % Normal 38.0-82.0 [facility] Comment on above: Performed By: #### L [id number] ####Cuff Cutter: NICOLE BOWERS ([id number])[facility] ([facility])[address] [place] [address] NRBC 0.0 /100 WBCs Normal 0.0-2.0 [facility] Comment on above: Performed By: #### L [id number] ####Cuff Cutter: NICOLE BOWERS ([id number])[facility] ([facility])[address] [place] [address] Platelet mean volume (Bld) [Entitic vol] 10.2 fL Normal 9.0-12.7 [facility] Comment on above: Performed By: #### L [id number] ####Cuff Cutter: NICOLE BOWERS ([id number])[facility] ([facility])[address] [place] [address] [place] Platelets (Bld) [#/Vol] 258 10*3/uL Normal 140-440 [facility] Comment on above: Performed By: #### L [id number] ####Cuff Cutter: NICOLE BOWERS ([id number])[facility] ([facility])[address] [place] [address] [place] RBC (Bld) [#/Vol] 4.13 10*6/uL Low 4.40-5.90 [facility] Comment on above: Performed By: #### L [id number] ####Cuff Cutter: NICOLE BOWERS ([id number])[facility])[address] [place] [address] WBC (Bld) [#/Vol] 7.3 10*3/uL Normal 3.6-10.7 [facility] Comment on above: Performed By: #### L [id number] ####Cuff Cutter: NICOLE BOWERS ([id number])[facility])[address] [place] [address] COMPREHENSIVE METABOLIC PANE Ming 08-14-2024 Albumin [Mass/Vol] 2.8 g/dL Low 3.5-5.0 [facility] Comment on above: Performed By: #### Pedro JESSICA103, LAB17 ####Cuff Cutter: NICOLE BOWERS ([id number])[facility] ([facility])[address] [place] [address] ALP [Catalytic activity/Vol] 230 U/L High 40-150 [facility] Comment on above: Performed By: #### Pedro JESSICA103, LAB17 ####Cuff Cutter: NICOLE BOWERS ([id number])[facility])[address] [place] [address] ALT [Catalytic activity/Vol] 73 U/L High <40 [facility] Comment on above: Performed By: #### L AB103, LAB17 ####Cuff Cutter: NICOLE BOWERS ([id number])[facility])[address] [place] [address] Anion gap [Moles/Vol] 10 mmol/L Normal 3-13 [facility] Comment on above: Performed By: #### L AB103, LAB17 ####Cuff Cutter: NICOLE BOWERS ([id number])[facility])[address] [place] [address] AST [Catalytic activity/Vol] 36 U/L High <34 [facility] Comment on above: Performed By: #### L AB103, LAB17 ####Cuff Cutter: NICOLE BOWERS ([id number])[facility] ([facility])[address] [place] [address] Bilirubin [Mass/Vol] 2.1 mg/dL High <1.2 [facility] Comment on above: Performed By: #### L AB103, LAB17 ####Cuff Cutter: NICOLE BOWERS ([id number])[facility] ([facility])[address] [place] [address] Calcium [Mass/Vol] 8.2 mg/dL Low 8.4-10.2 [facility] Comment on above: Performed By: #### L AB103, LAB17 ####Cuff Cutter: NICOLE BOWERS ([id number])[facility] ([facility])[address] [place] [address] Chloride [Moles/Vol] 102 mmol/L Normal 98-107 [facility] Comment on above: Performed By: #### L AB103, LAB17 ####Cuff Cutter: NICOLE BOWERS ([id number])[facility] ([facility])[address] [place] [address] CO2 [Moles/Vol] 26 mmol/L Normal 22-29 [facility] Comment on above: Performed By: #### L AB103, LAB17 ####Cuff Cutter: NICOLE BOWERS ([id number])[facility])[address] [place] [address] Creatinine [Mass/Vol] 2.17 mg/dL High 0.72-1.25 [facility] Comment on above: Performed By: #### L AB103, LAB17 ####Cuff Cutter: NICOLE BOWERS ([id number])[facility])[address] [place] [address] GLOMERULAR FILTRATION RATE ML/MIN/1.73 SQ M.PREDICTED 37.1 mL/min/1.73m*2 Low >60.0 [facility] Comment on above: Result Comment: Calc ulation based on the Chronic Kidney Disease Epidemiology Collaboration (CKD-EPI) equation refit without adjustment for race Performed By: #### L AB103, LAB17 ####Cuff Cutter: NICOLE BOWERS ([id number])[facility])[address] [place] [address] Glucose [Mass/Vol] 151 mg/dL High 74-100 [facility] Comment on above: Performed By: #### L JACKI, LAB17 ####Cuff Cutter: NICOLE BOWERS ([id number])[facility])[address] [place] [address] Potassium [Moles/Vol] 3.3 mmol/L Low 3.5-5.1 [facility] Comment on above: Result Comment: [facility] potassium values may be up to 0.5 mmol/L lower than serum values. Performed By: #### L 103, LAB17 ####Cuff Cutter: NICOLE BOWERS ([id number])[facility])[address] [place] [address] Protein [Mass/Vol] 5.5 g/dL Low 6.4-8.3 [facility] Comment on above: Performed By: #### L JACKI, LAB17 ####Cuff Cutter: NICOLE BOWERS ([id number])[facility])[address] [place] [address] Sodium [Moles/Vol] 138 mmol/L Normal 136-145 [facility] Comment on above: Performed By: #### L JACKI, LAB17 ####Cuff Cutter: NICOLE BOWERS ([id number])[facility])[address] [place] [address] [place] Urea nitrogen [Mass/Vol] 39 mg/dL High 8-21 [facility] Comment on above: Performed By: #### L AB103, LAB17 ####Cuff Cutter: NICOLE BOWERS ([id number])[facility])[address] [place] [address] Comprehensive metabolic 1998 panelon 08-14-2024 Albumin [Mass/Vol] 2.8 g/dL Low 3.5 - 5.0 g/dL [facility] ALP [Catalytic activity/Vol] 230 U/L High 40 - 150 U/L [facility] ALT [Catalytic activity/Vol] 73 U/L High NINF - 40 U/L [facility] Anion gap [Moles/Vol] 10 mmol/L 3 - 13 mmol/L [facility] AST [Catalytic activity/Vol] 36 U/L High NINF - 34 U/L [facility] Bilirubin [Mass/Vol] 2.1 mg/dL High NINF - 1.2 mg/dL [facility] Calcium [Mass/Vol] 8.2 mg/dL Low 8.4 - 10. 2 mg/dL [facility] Chloride [Moles/Vol] 102 mmol/L 98 - 10 7 mmol/L [facility] CO2 [Moles/Vol] 26 mmol/L 22 - 29 mmol/L [facility] Creatinine [Mass/Vol] 2.17 mg/dL High 0.72 - 1.25 mg/dL [facility] GFR/1.73 sq M.predicted (S/P/Bld) [Vol rate/Area] 37.1 mL/min Low - PINF [facility] Glucose [Mass/Vol] 151 mg/dL High 74 - 100 mg/dL [facility] Interpretation and review of laboratory results Abnormal [facility] Potassium [Moles/Vol] 3.3 mmol/L Low 3.5 - 5.1 mmol/L [facility] Protein [Mass/Vol] 5.5 g/dL Low 6.4 - 8.3 g/dL [facility] Sodium [Moles/Vol] 138 mmol/L 136 - 145 mmol/L [facility] Urea nitrogen [Mass/Vol] 39 mg/dL High 8 - 21 mg/dL [facility] - Chemistry and C hemistry - challengeon 08-14-2024 Magnesium [Mass/Vol] 1.6 mg/dL 1.6 - 2 .6 mg/dL [facility] MAGNESIUMon 08-14-2024 Magnesium [Mass/Vol] 1.6 mg/dL Normal 1.6-2.6 [facility] Comment on above: Result Comment: ORDE R COMMENTS:Higher values can be expected in females during menses. Performed By: #### L AB103, LAB17 ####Cuff Cutter: NICOLE BOWERS ([id number])[facility] ([facility])[address] [place] [address] Magnesium [Mass/Vol]on 08-14 Interpretation and review of laboratory results Normal [facility] Nursing Noteon 08-14-2024 Nursing Note Pt refused bloodwork this night, RN attempted to educate on reasons why bloodwork being drawn daily. Notified Dr. Hawley. Normal [facility] Progress Noteon 08-14-2024 Progress Note Normal [facility] Progress Note Normal [facility] Progress Note Normal [facility] 30on 08-13-2024 30 Normal [facility] 30 Normal [facility] [id number] 08-13-2024 [id number] an accepting DR at [facility], [place], no beds. Continues on IV Bumex. Plan is home when stable, [facility] [id number] SW met with pt. Introduced self. SW completed 30 day readmission questionnaire with pt. Pt denies any needs from SW at this time. [facility] CBC W Auto Differential pane l (Bld)on 08-13-2024 Basophils (Bld) [#/Vol] 0 10*3/uL 0.0 - 0.2 10*3/uL [facility] Basophils/100 WBC (Bld) 0.4 % 0.0 - 2.0 % [facility] Eosinophils (Bld) [#/Vol] 0 10*3/uL 0.0 - 0.5 10*3/uL [facility] Eosinophils/100 WBC (Bld) 0.4 % 0.0 - 6.0 % [facility] Erythrocyte distribution width (RBC) [Ratio] 13.2 % 11.5 - 15.0 % [facility] Hematocrit (Bld) [Volume fraction] 40.9 % 40.0 - 52.0 % [facility] Hemoglobin (Bld) [Mass/Vol] 13.8 g/dL 13.0 - 18.0 g/dL [facility] Immature granulocytes (Bld) [#/Vol] 0 10*3/uL NINF - 0.1 10*3/uL [facility] Immature granulocytes/100 WBC (Bld) 0.3 % 0.0 - 2.0 % [facility] Interpretation and review of laboratory results Abnormal [facility] Lymphocytes (Bld) [#/Vol] 2 10*3/uL 1.0 - 4.3 10*3/uL [facility] Lymphocytes/100 WBC (Bld) 27.4 % 15.0 - 45.0 % [facility] MCH (RBC) [Entitic mass] 33.1 pg 26.0 - 34.0 pg [facility] MCHC (RBC) [Mass/Vol] 33.7 % 30.5 - 36.0 % [facility] MCV (RBC) [Entitic vol] 98.1 fL 77.0 - 99.0 fL [facility] Monocytes (Bld) [#/Vol] 0.7 10*3/uL 0.0 - 0.9 10*3/uL [facility] Monocytes/100 WBC (Bld) 8.8 % 5.0 - 13.0 % [facility] Neutrophils (Bld) [#/Vol] 4.7 10*3/uL 1.8 - 7.5 10*3/uL [facility] Neutrophils/100 WBC (Bld) 62.7 % 38.0 - 82.0 % [facility] Nucleated RBC/100 WBC (Bld) [Ratio] 0 % [facility] Platelet mean volume (Bld) [Entitic vol] 10.2 fL 9.0 - 12.7 fL [facility] Platelets (Bld) [#/Vol] 246 10*3/uL 140 - 440 10*3/uL [facility] RBC (Bld) [#/Vol] 4.17 10*6/uL Low 4.40 - 5.9 0 10*6/uL [facility] WBC (Bld) [#/Vol] 7.4 10*3/uL 3.6 - 10.7 10*3/uL [facility] CBC WITH AUTO DIFFERENTIALon 08-13-2024 Basophils (Bld) [#/Vol] 0.0 10*3/uL Normal 0.0-0.2 [facility] Comment on above: Performed By: #### L [id number] ####Cuff Cutter: NICOLE BOWERS ([id number])[facility])[address] [place] [address] Basophils/100 WBC (Bld) 0.4 % Normal 0.0-2.0 [facility] Comment on above: Performed By: #### L [id number] ####Cuff Cutter: NICOLE BOWERS ([id number])[facility])[address] [place] [address] Eosinophils (Bld) [#/Vol] 0.0 10*3/uL Normal 0.0-0.5 [facility] Comment on above: Performed By: #### L [id number] ####Cuff Cutter: NICOLE BOWERS ([id number])[facility])[address] [place] [address] Eosinophils/100 WBC (Bld) 0.4 % Normal 0.0-6.0 [facility] Comment on above: Performed By: #### L [id number] ####Cuff Cutter: NICOLE BOWERS ([id number])[facility])[address] [place] [address] Erythrocyte distribution width (RBC) [Ratio] 13.2 % Normal 11.5-15.0 [facility] Comment on above: Performed By: #### L [id number] ####Cuff Cutter: NICOLE BOWERS ([id number])[address] Hematocrit (Bld) [Volume fraction] 40.9 % Normal 40.0-52.0 [facility] Comment on above: Performed By: #### L [id number] ####Cuff Cutter: NICOLE BOWERS ([id number])[facility])[address] [place] [address] Hemoglobin (Bld) [Mass/Vol] 13.8 g/dL Normal 13.0-18.0 [facility] Comment on above: Performed By: #### L [id number] ####Cuff Cutter: NICOLE BOWERS ([id number])[facility])[address] [place] [address] IMMATURE GRANS % 0.3 % Normal 0.0-2.0 [facility] Comment on above: Performed By: #### L [id number] ####Cuff Cutter: NICOLE BOWERS ([id number])[facility])[address] [place] [address] IMMATURE GRANS ABSOLUTE 0.0 10*3/uL Normal <0.1 [facility] Comment on above: Performed By: #### L [id number] ####Cuff Cutter: NICOLE BOWERS ([id number])[facility])[address] [place] [address] Lymphocytes (Bld) [#/Vol] 2.0 10*3/uL Normal 1.0-4.3 [facility] Comment on above: Performed By: #### L [id number] ####Cuff Cutter: NICOLE BOWERS ([id number])[facility])[address] [place] [address] Lymphocytes/100 WBC (Bld) 27.4 % Normal 15.0-45.0 [facility] Comment on above: Performed By: #### L [id number] ####Cuff Cutter: NICOLE BOWERS ([id number])[facility])[address] [place] [address] MCH (RBC) [Entitic mass] 33.1 pg Normal 26.0-34.0 [facility] Comment on above: Performed By: #### L [id number] ####Cuff Cutter: NICOLE BOWERS ([id number])[facility])[address] [place] [address] MCHC 33.7 % Normal 30.5-36.0 [facility] Comment on above: Performed By: #### L [id number] ####Cuff Cutter: NICOLE BOWERS ([id number])[facility])[address] [place] [address] MCV (RBC) [Entitic vol] 98.1 fL Normal 77.0-99.0 [facility] Comment on above: Performed By: #### L [id number] ####Cuff Cutter: NICOLE BOWERS ([id number])[facility] [facility] ([facility])[address] [place] [address] Monocytes (Bld) [#/Vol] 0.7 10*3/uL Normal 0.0-0.9 [facility] Comment on above: Performed By: #### L [id number] ####Cuff Cutter: NICOLE BOWERS ([id number])[facility] ([facility])[address] [place] [address] Monocytes/100 WBC (Bld) 8.8 % Normal 5.0-13.0 [facility] Comment on above: Performed By: #### L [id number] ####Cuff Cutter: NICOLE BOWERS ([id number])[facility] ([facility])[address] [place] [address] NEUTROPHILS ABSOLUTE 4.7 10*3/uL Normal 1.8-7.5 [facility] Comment on above: Performed By: #### L [id number] ####Cuff Cutter: NICOLE BOWERS ([id number])[facility] ([facility])[address] [place] [address] Neutrophils/100 WBC (Bld) 62.7 % Normal 38.0-82.0 [facility] Comment on above: Performed By: #### L [id number] ####Cuff Cutter: NICOLE BOWERS ([id number])[facility])[address] [place] [address] NRBC 0.0 /100 WBCs Normal 0.0-2.0 [facility] Comment on above: Performed By: #### L [id number] ####Cuff Cutter: NICOLE BOWERS ([id number])[facility])[address] [place] [address] Platelet mean volume (Bld) [Entitic vol] 10.2 fL Normal 9.0-12.7 [facility] Comment on above: Performed By: #### L [id number] ####Cuff Cutter: NICOLE BOWERS ([id number])[facility] ([facility])[address] [place] [address] Platelets (Bld) [#/Vol] 246 10*3/uL Normal 140-440 [facility] Comment on above: Performed By: #### L [id number] ####Cuff Cutter: NICOLE BOWERS ([id number])[facility] ([facility])[address] [place] [address] RBC (Bld) [#/Vol] 4.17 10*6/uL Low 4.40-5.90 [facility] Comment on above: Performed By: #### L [id number] ####Cuff Cutter: NICOLE BOWERS ([id number])[facility] ([facility])[address] [place] [address] WBC (Bld) [#/Vol] 7.4 10*3/uL Normal 3.6-10.7 [facility] Comment on above: Performed By: #### L [id number] ####Cuff Cutter: NICOLE BOWERS ([id number])[facility] ([facility])[address] [place] [address] COMPREHENSIVE METABOLIC PANE Ming 08-13-2024 Albumin [Mass/Vol] 3.0 g/dL Low 3.5-5.0 [facility] Comment on above: Performed By: #### L [id number] ####Cuff Cutter: NICOLE BOWERS ([id number])[facility] ([facility])[address] [place] [address] ALP [Catalytic activity/Vol] 232 U/L High 40-150 [facility] Comment on above: Performed By: #### L [id number] ####Cuff Cutter: NICOLE BOWERS ([id number])[facility])[address] [place] [address] ALT [Catalytic activity/Vol] 83 U/L High <40 [facility] Comment on above: Performed By: #### L [id number] ####Cuff Cutter: NICOLE BOWERS ([id number])[facility])[address] Anion gap [Moles/Vol] 11 mmol/L Normal 3-13 [facility] Comment on above: Performed By: #### L [id number] ####Cuff Cutter: NICOLE BOWERS ([id number])[facility] ([facility])[address] AST [Catalytic activity/Vol] 38 U/L High <34 [facility] Comment on above: Performed By: #### L [id number] ####Cuff Cutter: NICOLE BOWERS ([id number])[facility] ([facility])[address] [place] [address] Bilirubin [Mass/Vol] 2.9 mg/dL High <1.2 [facility] Comment on above: Performed By: #### L [id number] ####Cuff Cutter: NICOLE BOWERS ([id number])[facility] ([facility])[address] [place] [address] Calcium [Mass/Vol] 8.4 mg/dL Normal 8.4-10.2 [facility] Comment on above: Performed By: #### L [id number] ####Cuff Cutter: NICOLE BOWERS ([id number])[facility] ([facility])[address] [place] [address] Chloride [Moles/Vol] 105 mmol/L Normal 98-107 [facility] Comment on above: Performed By: #### L [id number] ####Cuff Cutter: NICOLE BOWERS ([id number])[facility] ([facility])[address] [place] [address] CO2 [Moles/Vol] 20 mmol/L Low 22-29 [facility] Comment on above: Performed By: #### L [id number] ####Cuff Cutter: NICOLE BOWERS ([id number])[facility] ([facility])[address] [place] [address] Creatinine [Mass/Vol] 2.24 mg/dL High 0.72-1.25 [facility] Comment on above: Performed By: #### L [id number] ####Cuff Cutter: NICOLE BOWERS ([id number])[facility])[address] [place] [address] [place] GLOMERULAR FILTRATION RATE ML/MIN/1.73 SQ M.PREDICTED 35.7 mL/min/1.73m*2 Low >60.0 [facility] Comment on above: Result Comment: Calc ulation based on the Chronic Kidney Disease Epidemiology Collaboration (CKD-EPI) equation refit without adjustment for race Performed By: #### L [id number] ####Cuff Cutter: NICOLE BOWERS ([id number])[facility] ([facility])[address] [place] [address] [place] Glucose [Mass/Vol] 165 mg/dL High 74-100 [facility] Comment on above: Performed By: #### L [id number] ####Cuff Cutter: NICOLE BOWERS ([id number])[facility])[address] [place] [address] Potassium [Moles/Vol] 3.7 mmol/L Normal 3.5-5.1 [facility] Comment on above: Result Comment: [facility] potassium values may be up to 0.5 mmol/L lower than serum values. Performed By: #### L [id number] ####Cuff Cutter: NICOLE BOWERS ([id number])[facility])[address] [place] [address] Protein [Mass/Vol] 5.7 g/dL Low 6.4-8.3 [facility] Comment on above: Performed By: #### L [id number] ####Cuff Cutter: NICOLE BOWERS ([id number])[facility])[address] [place] [address] [place] Sodium [Moles/Vol] 136 mmol/L Normal 136-145 [facility] Comment on above: Performed By: #### L [id number] ####Cuff Cutter: NICOLE BOWERS ([id number])[facility])[address] [place] [address] [place] Urea nitrogen [Mass/Vol] 47 mg/dL High 8-21 [facility] Comment on above: Performed By: #### L [id number] ####Cuff Cutter: NICOLE BOWERS ([id number])[facility] ([facility])[address] [place] [address] Comprehensive metabolic 1998 panelon 08-13-2024 Albumin [Mass/Vol] 3 g/dL Low 3.5 - 5.0 g/dL [facility] ALP [Catalytic activity/Vol] 232 U/L High 40 - 150 U/L [facility] ALT [Catalytic activity/Vol] 83 U/L High NINF - 40 U/L [facility] Anion gap [Moles/Vol] 11 mmol/L 3 - 13 mmol/L [facility] AST [Catalytic activity/Vol] 38 U/L High NINF - 34 U/L [facility] Bilirubin [Mass/Vol] 2.9 mg/dL High NINF - 1.2 mg/dL [facility] Calcium [Mass/Vol] 8.4 mg/dL 8.4 - 10. 2 mg/dL [facility] Chloride [Moles/Vol] 105 mmol/L 98 - 10 7 mmol/L [facility] CO2 [Moles/Vol] 20 mmol/L Low 22 - 29 mmol/L [facility] Creatinine [Mass/Vol] 2.24 mg/dL High 0.72 - 1.25 mg/dL [facility] GFR/1.73 sq M.predicted (S/P/Bld) [Vol rate/Area] 35.7 mL/min Low - PINF [facility] Glucose [Mass/Vol] 165 mg/dL High 74 - 100 mg/dL [facility] Interpretation and review of laboratory results Abnormal [facility] Potassium [Moles/Vol] 3.7 mmol/L 3.5 - 5.1 mmol/L [facility] Protein [Mass/Vol] 5.7 g/dL Low 6.4 - 8.3 g/dL [facility] Sodium [Moles/Vol] 136 mmol/L 136 - 145 mmol/L [facility] Urea nitrogen [Mass/Vol] 47 mg/dL High 8 - 21 mg/dL [facility] LACTIC ACID WITH REFLEXon Lactate [Moles/Vol] 1.9 mmol/L Normal 0.5-2.2 [facility] Comment on above: Performed By: #### L [id number] ####Cuff Cutter: NICOLE BOWERS ([id number])[facility] ([facility])[address] [place] [address] Laboratory - Chemistry and C hemistry - challengeon 08-13-2024 Lactate [Moles/Vol] 1.9 mmol/L 0.5 - 2. 2 mmol/L [facility] No Panel Informationon 08-13 Interpretation and review of laboratory results Normal [facility] Nursing Noteon 08-13-2024 Nursing Note RN notified Dr. Demarco rai that patient is refusing all labs this morning. Normal [facility] Progress Noteon 08-13-2024 Progress Note Normal [facility] Progress Note Normal [facility] Progress Note Normal [facility] Progress Note Normal [facility] [id number] 08-12-2024 [id number] Normal [facility] 30on 08-12-2024 30 Normal [facility] [id number] 08-12-2024 [id number] Informed pt that we do not take his insurance. Can only go to [facility], [place]. Made Dr aware, he is waiting for a return call to see if we can transfer. . Normal [facility] CBC W Auto Differential pane l (Bld)on 08-12-2024 Basophils (Bld) [#/Vol] 0 10*3/uL 0.0 - 0.2 10*3/uL [facility] Basophils/100 WBC (Bld) 0.5 % 0.0 - 2.0 % [facility] Eosinophils (Bld) [#/Vol] 0 10*3/uL 0.0 - 0.5 10*3/uL [facility] Eosinophils/100 WBC (Bld) 0.2 % 0.0 - 6.0 % [facility] Erythrocyte distribution width (RBC) [Ratio] 13.2 % 11.5 - 15.0 % [facility] Hematocrit (Bld) [Volume fraction] 42.2 % 40.0 - 52.0 % [facility] Hemoglobin (Bld) [Mass/Vol] 14 g/dL 13.0 - 18.0 g/dL [facility] Immature granulocytes (Bld) [#/Vol] 0 10*3/uL NINF - 0.1 10*3/uL [facility] Immature granulocytes/100 WBC (Bld) 0.2 % 0.0 - 2.0 % [facility] Interpretation and review of laboratory results Abnormal [facility] Lymphocytes (Bld) [#/Vol] 2.7 10*3/uL 1.0 - 4.3 10*3/uL [facility] Lymphocytes/100 WBC (Bld) 34.1 % 15.0 - 45.0 % [facility] MCH (RBC) [Entitic mass] 33.5 pg 26.0 - 34.0 pg [facility] MCHC (RBC) [Mass/Vol] 33.2 % 30.5 - 36.0 % [facility] MCV (RBC) [Entitic vol] 101 fL High 77.0 - 99.0 fL [facility] Monocytes (Bld) [#/Vol] 0.7 10*3/uL 0.0 - 0.9 10*3/uL [facility] Monocytes/100 WBC (Bld) 9.2 % 5.0 - 13.0 % [facility] Neutrophils (Bld) [#/Vol] 4.5 10*3/uL 1.8 - 7.5 10*3/uL [facility] Neutrophils/100 WBC (Bld) 55.8 % 38.0 - 82.0 % [facility] Nucleated RBC/100 WBC (Bld) [Ratio] 0.2 % [facility] Platelet mean volume (Bld) [Entitic vol] 10.5 fL 9.0 - 12.7 fL [facility] Platelets (Bld) [#/Vol] 263 10*3/uL 140 - 440 10*3/uL [facility] RBC (Bld) [#/Vol] 4.18 10*6/uL Low 4.40 - 5.9 0 10*6/uL [facility] WBC (Bld) [#/Vol] 8 10*3/uL 3.6 - 10.7 10*3/uL [facility] CBC WITH AUTO DIFFERENTIALon 08-12-2024 Basophils (Bld) [#/Vol] 0.0 10*3/uL Normal 0.0-0.2 [facility] Comment on above: Performed By: #### L [id number] ####Cuff Cutter: NICOLE BOWERS ([id number])[facility])[address] [place] [address] Basophils/100 WBC (Bld) 0.5 % Normal 0.0-2.0 [facility] Comment on above: Performed By: #### L [id number] ####Cuff Cutter: NICOLE BOWERS ([id number])[facility])[address] [place] [address] Eosinophils (Bld) [#/Vol] 0.0 10*3/uL Normal 0.0-0.5 [facility] Comment on above: Performed By: #### L [id number] ####Cuff Cutter: NICOLE BOWERS ([id number])[address] Eosinophils/100 WBC (Bld) 0.2 % Normal 0.0-6.0 [facility] Comment on above: Performed By: #### L [id number] ####Cuff Cutter: NICOLE BOWERS ([id number])[facility])[address] [place] [address] Erythrocyte distribution width (RBC) [Ratio] 13.2 % Normal 11.5-15.0 [facility] Comment on above: Performed By: #### L [id number] ####Cuff Cutter: NICOLE BOWERS ([id number])[address] Hematocrit (Bld) [Volume fraction] 42.2 % Normal 40.0-52.0 [facility] Comment on above: Performed By: #### L [id number] ####Cuff Cutter: NICOLE BOWERS ([id number])[facility])[address] [place] [address] Hemoglobin (Bld) [Mass/Vol] 14.0 g/dL Normal 13.0-18.0 [facility] Comment on above: Performed By: #### L [id number] ####Cuff Cutter: NICOLE BOWERS ([id number])[facility] ([facility])[address] [place] [address] IMMATURE GRANS % 0.2 % Normal 0.0-2.0 [facility] Comment on above: Performed By: #### L [id number] ####Cuff Cutter: NICOLE BOWERS ([id number])[facility])[address] [place] [address] IMMATURE GRANS ABSOLUTE 0.0 10*3/uL Normal <0.1 [facility] Comment on above: Performed By: #### L [id number] ####Cuff Cutter: NICOLE BOWERS ([id number])[facility])[address] [place] [address] Lymphocytes (Bld) [#/Vol] 2.7 10*3/uL Normal 1.0-4.3 [facility] Comment on above: Performed By: #### L [id number] ####Cuff Cutter: NICOLE BOWERS ([id number])[facility])[address] [place] [address] Lymphocytes/100 WBC (Bld) 34.1 % Normal 15.0-45.0 [facility] Comment on above: Performed By: #### L [id number] ####Cuff Cutter: NICOLE BOWERS ([id number])[facility])[address] [place] [address] MCH (RBC) [Entitic mass] 33.5 pg Normal 26.0-34.0 [facility] Comment on above: Performed By: #### L [id number] ####Cuff Cutter: NICOLE BOWERS ([id number])[facility])[address] [place] [address] MCHC 33.2 % Normal 30.5-36.0 [facility] Comment on above: Performed By: #### L [id number] ####Cuff Cutter: NICOLE BOWERS ([id number])[facility])[address] [place] [address] MCV (RBC) [Entitic vol] 101.0 fL High 77.0-99.0 [facility] Comment on above: Performed By: #### L [id number] ####Cuff Cutter: NICOLE BOWERS ([id number])[facility] ([facility])[address] [place] [address] Monocytes (Bld) [#/Vol] 0.7 10*3/uL Normal 0.0-0.9 [facility] Comment on above: Performed By: #### L [id number] ####Cuff Cutter: NICOLE BOWERS ([id number])[facility] ([facility])[address] [place] [address] Monocytes/100 WBC (Bld) 9.2 % Normal 5.0-13.0 [facility] Comment on above: Performed By: #### L [id number] ####Cuff Cutter: NICOLE BOWERS ([id number])[facility] ([facility])[address] [place] [address] NEUTROPHILS ABSOLUTE 4.5 10*3/uL Normal 1.8-7.5 [facility] Comment on above: Performed By: #### L [id number] ####Cuff Cutter: NICOLE BOWERS ([id number])[facility] ([facility])[address] [place] [address] Neutrophils/100 WBC (Bld) 55.8 % Normal 38.0-82.0 [facility] Comment on above: Performed By: #### L [id number] ####Cuff Cutter: NICOLE BOWERS ([id number])[facility])[address] [place] [address] NRBC 0.2 /100 WBCs Normal 0.0-2.0 [facility] Comment on above: Performed By: #### L [id number] ####Cuff Cutter: NICOLE BOWERS ([id number])[facility])[address] [place] [address] Platelet mean volume (Bld) [Entitic vol] 10.5 fL Normal 9.0-12.7 [facility] Comment on above: Performed By: #### L [id number] ####Cuff Cutter: NICOLE BOWERS ([id number])[facility] ([facility])[address] [place] [address] Platelets (Bld) [#/Vol] 263 10*3/uL Normal 140-440 [facility] Comment on above: Performed By: #### L [id number] ####Cuff Cutter: NICOLE BOWERS ([id number])[facility] ([facility])[address] [place] [address] RBC (Bld) [#/Vol] 4.18 10*6/uL Low 4.40-5.90 [facility] Comment on above: Performed By: #### L [id number] ####Cuff Cutter: NICOLE BOWERS ([id number])[facility] ([facility])[address] [place] [address] WBC (Bld) [#/Vol] 8.0 10*3/uL Normal 3.6-10.7 [facility] Comment on above: Performed By: #### L [id number] ####Cuff Cutter: NICOLE BOWERS ([id number])[facility] ([facility])[address] [place] [address] COMPREHENSIVE METABOLIC PANE Ming 08-12-2024 Albumin [Mass/Vol] 2.8 g/dL Low 3.5-5.0 [facility] Comment on above: Performed By: #### L [id number] ####Cuff Cutter: NICOLE BOWERS ([id number])[facility] ([facility])[address] [place] [address] ALP [Catalytic activity/Vol] 225 U/L High 40-150 [facility] Comment on above: Performed By: #### L [id number] ####Cuff Cutter: NICOLE BOWERS ([id number])[facility])[address] [place] [address] ALT [Catalytic activity/Vol] 86 U/L High <40 [facility] Comment on above: Performed By: #### L [id number] ####Cuff Cutter: NICOLE BOWERS ([id number])[facility] ([facility])[address] [place] [address] Anion gap [Moles/Vol] 11 mmol/L Normal 3-13 [facility] Comment on above: Performed By: #### L [id number] ####Cuff Cutter: NICOLE BOWERS ([id number])[facility] ([facility])[address] [place] [address] AST [Catalytic activity/Vol] 47 U/L High <34 [facility] Comment on above: Performed By: #### L [id number] ####Cuff Cutter: NICOLE BOWERS ([id number])[facility] ([facility])[address] [place] [address] Bilirubin [Mass/Vol] 2.0 mg/dL High <1.2 [facility] Comment on above: Performed By: #### L [id number] ####Cuff Cutter: NICOLE BOWERS ([id number])[facility] ([facility])[address] [place] [address] Calcium [Mass/Vol] 8.2 mg/dL Low 8.4-10.2 [facility] Comment on above: Performed By: #### L [id number] ####Cuff Cutter: NICOLE BOWERS ([id number])[facility] ([facility])[address] [place] [address] Chloride [Moles/Vol] 106 mmol/L Normal 98-107 [facility] Comment on above: Performed By: #### L [id number] ####Cuff Cutter: NICOLE BOWERS ([id number])[facility] ([facility])[address] [place] [address] [place] CO2 [Moles/Vol] 19 mmol/L Low 22-29 [facility] Comment on above: Performed By: #### L [id number] ####Cuff Cutter: NICOLE BOWERS ([id number])[facility] ([facility])[address] [place] [address] Creatinine [Mass/Vol] 2.23 mg/dL High 0.72-1.25 [facility] Comment on above: Performed By: #### L [id number] ####Cuff Cutter: NICOLE BOWERS ([id number])[facility])[address] [place] [address] GLOMERULAR FILTRATION RATE ML/MIN/1.73 SQ M.PREDICTED 35.9 mL/min/1.73m*2 Low >60.0 [facility] Comment on above: Result Comment: Calc ulation based on the Chronic Kidney Disease Epidemiology Collaboration (CKD-EPI) equation refit without adjustment for race Performed By: #### L [id number] ####Cuff Cutter: NICOLE BOWERS ([id number])[facility] ([facility])[address] [place] [address] [place] Glucose [Mass/Vol] 118 mg/dL High 74-100 [facility] Comment on above: Performed By: #### L [id number] ####Cuff Cutter: NICOLE BOWERS ([id number])[facility])[address] [place] [address] Potassium [Moles/Vol] 4.3 mmol/L Normal 3.5-5.1 [facility] Comment on above: Result Comment: [facility] potassium values may be up to 0.5 mmol/L lower than serum values. Performed By: #### L [id number] ####Cuff Cutter: NICOLE BOWERS ([id number])[facility])[address] [place] [address] Protein [Mass/Vol] 5.5 g/dL Low 6.4-8.3 [facility] Comment on above: Performed By: #### L [id number] ####Cuff Cutter: NICOLE BOWERS ([id number])[facility])[address] [place] [address] [place] Sodium [Moles/Vol] 136 mmol/L Normal 136-145 [facility] Comment on above: Performed By: #### L [id number] ####Cuff Cutter: NICOLE BOWERS ([id number])[facility])[address] [place] [address] [place] Urea nitrogen [Mass/Vol] 42 mg/dL High 8-21 [facility] Comment on above: Performed By: #### L [id number] ####Cuff Cutter: NICOLE BOWERS ([id number])[facility] ([facility])[address] [place] [address] Comprehensive metabolic 1998 panelon 08-12-2024 Albumin [Mass/Vol] 2.8 g/dL Low 3.5 - 5.0 g/dL [facility] ALP [Catalytic activity/Vol] 225 U/L High 40 - 150 U/L [facility] ALT [Catalytic activity/Vol] 86 U/L High NINF - 40 U/L [facility] Anion gap [Moles/Vol] 11 mmol/L 3 - 13 mmol/L [facility] AST [Catalytic activity/Vol] 47 U/L High NINF - 34 U/L [facility] Bilirubin [Mass/Vol] 2 mg/dL High NINF - 1.2 mg/dL [facility] Calcium [Mass/Vol] 8.2 mg/dL Low 8.4 - 10. 2 mg/dL [facility] Chloride [Moles/Vol] 106 mmol/L 98 - 10 7 mmol/L [facility] CO2 [Moles/Vol] 19 mmol/L Low 22 - 29 mmol/L [facility] Creatinine [Mass/Vol] 2.23 mg/dL High 0.72 - 1.25 mg/dL [facility] GFR/1.73 sq M.predicted (S/P/Bld) [Vol rate/Area] 35.9 mL/min Low - PINF [facility] Glucose [Mass/Vol] 118 mg/dL High 74 - 100 mg/dL [facility] Interpretation and review of laboratory results Abnormal [facility] Potassium [Moles/Vol] 4.3 mmol/L 3.5 - 5.1 mmol/L [facility] Protein [Mass/Vol] 5.5 g/dL Low 6.4 - 8.3 g/dL [facility] Sodium [Moles/Vol] 136 mmol/L 136 - 145 mmol/L [facility] Urea nitrogen [Mass/Vol] 42 mg/dL High 8 - 21 mg/dL [facility] LACTIC ACID WITH REFLEXon Lactate [Moles/Vol] 2.1 mmol/L Normal 0.5-2.2 [facility] Comment on above: Performed By: #### L [id number] ####Cuff Cutter: NICOLE BOWERS ([id number])[facility] ([facility])[address] [place] [address] Lactate [Moles/Vol] 2.4 mmol/L High 0.5-2.2 [facility] Comment on above: Performed By: #### L [id number] ####Cuff Cutter: NICOLE BOWERS ([id number])[facility] ([facility])[address] [place] [address] Laboratory - Chemistry and C hemistry - challengeon 08-12-2024 Lactate [Moles/Vol] 2.1 mmol/L 0.5 - 2. 2 mmol/L [facility] Lactate [Moles/Vol] 2.4 mmol/L High 0.5 - 2. 2 mmol/L [facility] NT PRO BNPon 08-12-2024 Natriuretic peptide B (Bld) [Mass/Vol] 41573 pg/mL High <125 [facility] Comment on above: Performed By: #### L [id number] ####Cuff Cutter: NICOLE BOWERS ([id number])[facility] ([facility])[address] [place] [address] Natriuretic peptide B [Mass/ Vol]on 08-12-2024 Interpretation and review of laboratory results Abnormal [facility] Natriuretic peptide B (Bld) [Mass/Vol] 40359 pg/mL High NINF - 125 pg/mL [facility] No Panel Informationon 08-12 Interpretation and review of laboratory results Normal [facility] Interpretation and review of laboratory results Abnormal [facility] Progress Noteon 08-12-2024 Progress Note Normal [facility] Progress Note Normal [facility] Progress Note Normal [facility] Telephone Encounteron 2024 Manager Women Authentication Interface Message Text Normal [facility] [id number] 08-11-2024 [id number] Normal [facility] 30on 08-11-2024 30 Progressing Normal [facility] 30 Normal [facility] 30 Progressing Normal [facility] [id number] 08-11-2024 [id number] 30 day re-admit completed. Normal [facility] BLOOD GAS, VENOUSon 08-11-19 25 Base excess Calc (BldV) [Moles/Vol] -1.3000 mmol/L Normal -3.0-3.0 [facility] Comment on above: Performed By: #### L [id number] ####Cuff Cutter: NICOLE BOWERS ([id number])[facility] ([facility])[address] [place] [address] CO2 [Moles/Vol] 22.0 mmol/L Low 24.0-28.0 [facility] Comment on above: Performed By: #### L [id number] ####Cuff Cutter: NICOLE BOWERS ([id number])[facility])[address] [place] [address] HCO3 (Bld) [Moles/Vol] 21.1 mmol/L Low 23.0-27.0 [facility] Comment on above: Performed By: #### L [id number] ####Cuff Cutter: NICOLE BOWERS ([id number])[facility] ([facility])[address] [place] [address] Hemoglobin (Bld) [Mass/Vol] 15.0 g/dL Normal Screen only [facility] Comment on above: Performed By: #### L [id number] ####Cuff Cutter: NICOLE BOWERS ([id number])[facility])[address] [place] [address] OXYGEN (MM HG) IN VENOUS BLOOD 120.8 mm Hg Normal [facility] Comment on above: Performed By: #### L [id number] ####Cuff Cutter: NICOLE BOWERS ([id number])[facility])[address] [place] [address] OXYGEN SATURATION (%) IN VENOUS BLOOD 98.6 % Normal [facility] Comment on above: Performed By: #### L [id number] ####Cuff Cutter: NICOLE BOWERS ([id number])[facility])[address] [place] [address] [place] PCO2, JAZ 29.6 mm Hg Low 40.0-55.0 [facility] Comment on above: Performed By: #### L [id number] ####Cuff Cutter: NICOLE BOWERS ([id number])[facility])[address] [place] [address] PH VENOUS 7.470 High 7.330-7.430 [facility] Comment on above: Performed By: #### L [id number] ####Cuff Cutter: NICOLE BOWERS ([id number])[facility] ([facility])[address] [place] [address] SOURCE OF OXYGEN Room Air Normal [facility] Comment on above: Result Comment: ALEJANDRO Tatum COMMENTS:Assessment of oxygenation is best done with an arterial blood gas determination. Reference ranges for pO2, bicarbonate, and base excess are for mixed venous blood. Specimens drawn from a peripheral vein will often have higher values.Interpret with caution, pO2 value falsely increased due to vacuum in tube. For accurate results, please draw on a heparinized syringe. Performed By: #### L [id number] ####Cuff Cutter: NICOLE BOWERS ([id number])[facility] ([facility])[address] [place] [address] CBC W Auto Differential pane l (Bld)on 08-11-2024 Basophils (Bld) [#/Vol] 0 10*3/uL 0.0 - 0.2 10*3/uL [facility] Basophils/100 WBC (Bld) 0.4 % 0.0 - 2.0 % [facility] Eosinophils (Bld) [#/Vol] 0 10*3/uL 0.0 - 0.5 10*3/uL [facility] Eosinophils/100 WBC (Bld) 0.2 % 0.0 - 6.0 % [facility] Erythrocyte distribution width (RBC) [Ratio] 13 % 11.5 - 15.0 % [facility] Hematocrit (Bld) [Volume fraction] 42 % 40.0 - 52.0 % [facility] Hemoglobin (Bld) [Mass/Vol] 13.9 g/dL 13.0 - 18.0 g/dL [facility] Immature granulocytes (Bld) [#/Vol] 0 10*3/uL NINF - 0.1 10*3/uL [facility] Immature granulocytes/100 WBC (Bld) 0.2 % 0.0 - 2.0 % [facility] Interpretation and review of laboratory results Abnormal [facility] Lymphocytes (Bld) [#/Vol] 2.8 10*3/uL 1.0 - 4.3 10*3/uL [facility] Lymphocytes/100 WBC (Bld) 33.6 % 15.0 - 45.0 % [facility] MCH (RBC) [Entitic mass] 33.1 pg 26.0 - 34.0 pg [facility] MCHC (RBC) [Mass/Vol] 33.1 % 30.5 - 36.0 % [facility] MCV (RBC) [Entitic vol] 100 fL High 77.0 - 99.0 fL [facility] Monocytes (Bld) [#/Vol] 0.6 10*3/uL 0.0 - 0.9 10*3/uL [facility] Monocytes/100 WBC (Bld) 7.3 % 5.0 - 13.0 % [facility] Neutrophils (Bld) [#/Vol] 4.8 10*3/uL 1.8 - 7.5 10*3/uL [facility] Neutrophils/100 WBC (Bld) 58.3 % 38.0 - 82.0 % [facility] Nucleated RBC/100 WBC (Bld) [Ratio] 0 % [facility] Platelet mean volume (Bld) [Entitic vol] 10.3 fL 9.0 - 12.7 fL [facility] Platelets (Bld) [#/Vol] 243 10*3/uL 140 - 440 10*3/uL [facility] RBC (Bld) [#/Vol] 4.2 10*6/uL Low 4.40 - 5.9 0 10*6/uL [facility] WBC (Bld) [#/Vol] 8.2 10*3/uL 3.6 - 10.7 10*3/uL [facility] CBC WITH AUTO DIFFERENTIALon 08-11-2024 Basophils (Bld) [#/Vol] 0.0 10*3/uL Normal 0.0-0.2 [facility] Comment on above: Performed By: #### L [id number] ####Cuff Cutter: NICOLE BOWERS ([id number])[facility])[address] [place] [address] Basophils/100 WBC (Bld) 0.4 % Normal 0.0-2.0 [facility] Comment on above: Performed By: #### L [id number] ####Cuff Cutter: NICOLE BOWERS ([id number])[facility])[address] [place] [address] Eosinophils (Bld) [#/Vol] 0.0 10*3/uL Normal 0.0-0.5 [facility] Comment on above: Performed By: #### L [id number] ####Cuff Cutter: NICOLE BOWERS ([id number])[address] Eosinophils/100 WBC (Bld) 0.2 % Normal 0.0-6.0 [facility] Comment on above: Performed By: #### L [id number] ####Cuff Cutter: NICOLE BOWERS ([id number])[facility])[address] [place] [address] Erythrocyte distribution width (RBC) [Ratio] 13.0 % Normal 11.5-15.0 [facility] Comment on above: Performed By: #### L [id number] ####Cuff Cutter: NICOLE BOWERS ([id number])[address] Hematocrit (Bld) [Volume fraction] 42.0 % Normal 40.0-52.0 [facility] Comment on above: Performed By: #### L [id number] ####Cuff Cutter: NICOLE BOWERS ([id number])[facility])[address] [place] [address] Hemoglobin (Bld) [Mass/Vol] 13.9 g/dL Normal 13.0-18.0 [facility] Comment on above: Performed By: #### L [id number] ####Cuff Cutter: NICOLE BOWERS ([id number])[facility])[address] [place] [address] IMMATURE GRANS % 0.2 % Normal 0.0-2.0 [facility] Comment on above: Performed By: #### L [id number] ####Cuff Cutter: NICOLE BOWERS ([id number])[facility])[address] [place] [address] IMMATURE GRANS ABSOLUTE 0.0 10*3/uL Normal <0.1 [facility] Comment on above: Performed By: #### L [id number] ####Cuff Cutter: NICOLE BOWERS ([id number])[facility])[address] [place] [address] Lymphocytes (Bld) [#/Vol] 2.8 10*3/uL Normal 1.0-4.3 [facility] Comment on above: Performed By: #### L [id number] ####Cuff Cutter: NICOLE BOWERS ([id number])[facility])[address] [place] [address] Lymphocytes/100 WBC (Bld) 33.6 % Normal 15.0-45.0 [facility] Comment on above: Performed By: #### L [id number] ####Cuff Cutter: NICOLE BOWERS ([id number])[facility])[address] [place] [address] MCH (RBC) [Entitic mass] 33.1 pg Normal 26.0-34.0 [facility] Comment on above: Performed By: #### L [id number] ####Cuff Cutter: NICOLE BOWERS ([id number])[facility])[address] [place] [address] MCHC 33.1 % Normal 30.5-36.0 [facility] Comment on above: Performed By: #### L [id number] ####Cuff Cutter: NICOLE BOWERS ([id number])[facility])[address] [place] [address] MCV (RBC) [Entitic vol] 100.0 fL High 77.0-99.0 [facility] Comment on above: Performed By: #### L [id number] ####Cuff Cutter: NICOLE BOWERS ([id number])[facility] ([facility])[address] [place] [address] Monocytes (Bld) [#/Vol] 0.6 10*3/uL Normal 0.0-0.9 [facility] Comment on above: Performed By: #### L [id number] ####Cuff Cutter: NICOLE BOWERS ([id number])[facility] ([facility])[address] [place] [address] Monocytes/100 WBC (Bld) 7.3 % Normal 5.0-13.0 [facility] Comment on above: Performed By: #### L [id number] ####Cuff Cutter: NICOLE BOWERS ([id number])[facility] ([facility])[address] [place] [address] NEUTROPHILS ABSOLUTE 4.8 10*3/uL Normal 1.8-7.5 [facility] Comment on above: Performed By: #### L [id number] ####Cuff Cutter: NICOLE BOWERS ([id number])[facility] ([facility])[address] [place] [address] Neutrophils/100 WBC (Bld) 58.3 % Normal 38.0-82.0 [facility] Comment on above: Performed By: #### L [id number] ####Cuff Cutter: NICOLE BOWERS ([id number])[facility] ([facility])[address] [place] [address] NRBC 0.0 /100 WBCs Normal 0.0-2.0 [facility] Comment on above: Performed By: #### L [id number] ####Cuff Cutter: NICOLE BOWERS ([id number])[facility])[address] [place] [address] Platelet mean volume (Bld) [Entitic vol] 10.3 fL Normal 9.0-12.7 [facility] Comment on above: Performed By: #### L [id number] ####Cuff Cutter: NICOLE BOWERS ([id number])[facility] [place] [address] Platelets (Bld) [#/Vol] 243 10*3/uL Normal 140-440 [facility] Comment on above: Performed By: #### L [id number] ####Cuff Cutter: NICOLE BOWERS ([id number])[facility])[address] [place] [address] RBC (Bld) [#/Vol] 4.20 10*6/uL Low 4.40-5.90 [facility] Comment on above: Performed By: #### L [id number] ####Cuff Cutter: NICOLE BOWERS ([id number])[facility] ([facility])[address] [place] [address] WBC (Bld) [#/Vol] 8.2 10*3/uL Normal 3.6-10.7 [facility] Comment on above: Performed By: #### L [id number] ####Cuff Cutter: NICOLE BOWERS ([id number])[facility] ([facility])[address] [place] [address] COMPLETE URINALYSISon 2024 BILIRUBIN, TOTAL PRESENCE IN URINE Negative Normal Negative [facility] Comment on above: Performed By: #### L [id number] ####Cuff Cutter: NICOLE BOWERS ([id number])[facility])[address] [place] [address] Clarity (U) Clear Normal Clear [facility] Comment on above: Performed By: #### L [id number] ####Cuff Cutter: NICOLE BOWERS ([id number])[facility])[address] [place] [address] Color (U) Light Yellow Normal Lt. Yellow [facility] Comment on above: Performed By: #### L [id number] ####Cuff Cutter: NICOLE BOWERS ([id number])[facility])[address] [place] [address] GLUCOSE (MG/DL) IN URINE Normal Normal Normal (<70) [facility] Comment on above: Performed By: #### L [id number] ####Cuff Cutter: NICOLE BOWERS ([id number])[facility])[address] [place] [address] HEMOGLOBIN PRESENCE IN URINE Negative Normal Negative [facility] Comment on above: Performed By: #### L [id number] ####Cuff Cutter: NICOLE BOWERS ([id number])[facility])[address] [place] [address] Ketones Ql (U) Negative Normal Negative [facility] Comment on above: Performed By: #### L [id number] ####Cuff Cutter: NICOLE BOWERS ([id number])[facility])[address] [place] [address] LEUKOCYTE ESTERASE PRESENCE IN URINE BY TEST STRIP Negative Normal Negative [facility] Comment on above: Performed By: #### L [id number] ####Cuff Cutter: NICOLE BOWERS ([id number])[facility] ([facility])[address] [place] [address] NITRITE PRESENCE IN URINE Negative Normal Negative [facility] Comment on above: Performed By: #### L [id number] ####Cuff Cutter: NICOLE BOWERS ([id number])[facility])[address] [place] [address] pH (U) 5.0 [pH] Normal 5.0-8.0 [facility] Comment on above: Performed By: #### L [id number] ####Cuff Cutter: NICOLE BOWERS ([id number])[facility])[address] [place] [address] Protein (U) [Mass/Vol] Negative Normal Negative [facility] Comment on above: Performed By: #### L [id number] ####Cuff Cutter: NICOLE BOWERS ([id number])[facility])[address] [place] [address] Specific gravity (U) [Rel density] 1.007 Normal 1.005-1.030 [facility] Comment on above: Performed By: #### L [id number] ####Cuff Cutter: NICOLE BOWERS ([id number])[facility] ([facility])[address] [place] [address] UROBILINOGEN (MG/DL) IN URINE Normal Normal Normal (0-1) [facility] Comment on above: Performed By: #### L [id number] ####Cuff Cutter: NICOLE BOWERS ([id number])[facility] ([facility])[address] [place] [address] COMPREHENSIVE METABOLIC PANE Ming 08-11-2024 Albumin [Mass/Vol] 3.0 g/dL Low 3.5-5.0 [facility] Comment on above: Performed By: #### L [id number], [id number] ####Cuff Cutter: NICOLE BOWERS ([id number])[facility] ([facility])[address] [place] [address] ALP [Catalytic activity/Vol] 201 U/L High 40-150 [facility] Comment on above: Performed By: #### L [id number], LAB17 ####Cuff Cutter: NICOLE BOWERS ([id number])[facility] ([facility])[address] [place] [address] ALT [Catalytic activity/Vol] 86 U/L High <40 [facility] Comment on above: Performed By: #### L [id number], LAB17 ####Cuff Cutter: NICOLE BOWERS ([id number])[facility] ([facility])[address] [place] [address] Anion gap [Moles/Vol] 10 mmol/L Normal 3-13 [facility] Comment on above: Performed By: #### L [id number], LAB17 ####Cuff Cutter: NICOLE BOWERS ([id number])[facility] ([facility])[address] [place] [address] AST [Catalytic activity/Vol] 47 U/L High <34 [facility] Comment on above: Performed By: #### L [id number], LAB17 ####Cuff Cutter: NICOLE BOWERS ([id number])[facility])[address] [place] [address] [place] Bilirubin [Mass/Vol] 2.6 mg/dL High <1.2 [facility] Comment on above: Performed By: #### L [id number], LAB17 ####Cuff Cutter: NICOLE BOWERS ([id number])[facility] ([facility])[address] [place] [address] Calcium [Mass/Vol] 8.4 mg/dL Normal 8.4-10.2 [facility] Comment on above: Performed By: #### L [id number], LAB17 ####Cuff Cutter: NICOLE BOWERS ([id number])[facility] ([facility])[address] [place] [address] Chloride [Moles/Vol] 102 mmol/L Normal 98-107 [facility] Comment on above: Performed By: #### L [id number], LAB17 ####Cuff Cutter: NICOLE BOWERS ([id number])[facility] ([facility])[address] [place] [address] CO2 [Moles/Vol] 18 mmol/L Low 22-29 [facility] Comment on above: Performed By: #### L [id number], [id number] ####Cuff Cutter: NICOLE BOWERS ([id number])[facility] ([facility])[address] [place] [address] Creatinine [Mass/Vol] 1.80 mg/dL High 0.72-1.25 [facility] Comment on above: Performed By: #### L [id number], LAB17 ####Cuff Cutter: NICOLE BOWERS ([id number])[facility] ([facility])[address] [place] [address] [place] GLOMERULAR FILTRATION RATE ML/MIN/1.73 SQ M.PREDICTED 46.4 mL/min/1.73m*2 Low >60.0 [facility] Comment on above: Result Comment: Calc ulation based on the Chronic Kidney Disease Epidemiology Collaboration (CKD-EPI) equation refit without adjustment for race Performed By: #### L [id number], [id number] ####Cuff Cutter: NICOLE BOWERS ([id number])[facility] ([facility])[address] [place] [address] Glucose [Mass/Vol] 94 mg/dL Normal 74-100 [facility] Comment on above: Performed By: #### L [id number], LAB17 ####Cuff Cutter: NICOLE BOWERS ([id number])[facility] ([facility])[address] [place] [address] Potassium [Moles/Vol] 4.0 mmol/L Normal 3.5-5.1 [facility] Comment on above: Result Comment: [facility] potassium values may be up to 0.5 mmol/L lower than serum values. Performed By: #### L [id number], LAB17 ####Cuff Cutter: NICOLE BOWERS ([id number])[facility] ([facility])[address] [place] [address] Protein [Mass/Vol] 5.6 g/dL Low 6.4-8.3 [facility] Comment on above: Performed By: #### L [id number], LAB17 ####Cuff Cutter: NICOLE BOWERS ([id number])[facility] ([facility])[address] [place] [address] Sodium [Moles/Vol] 130 mmol/L Low 136-145 [facility] Comment on above: Performed By: #### L [id number], LAB17 ####Cuff Cutter: NICOLE BOWERS ([id number])[facility])[address] [place] [address] Urea nitrogen [Mass/Vol] 39 mg/dL High 8-21 [facility] Comment on above: Performed By: #### L [id number], LAB17 ####Cuff Cutter: NICOLE BOWERS ([id number])[facility])[address] [place] [address] Comprehensive metabolic 1998 panelOrdered By: Eugene Rowan on 08-11-2024 Albumin [Mass/Vol] 3 g/dL Low 3.5 - 5.0 g/dL [facility] ALP [Catalytic activity/Vol] 201 U/L High 40 - 150 U/L [facility] ALT [Catalytic activity/Vol] 86 U/L High NINF - 40 U/L [facility] Anion gap [Moles/Vol] 10 mmol/L 3 - 13 mmol/L [facility] AST [Catalytic activity/Vol] 47 U/L High NINF - 34 U/L [facility] Bilirubin [Mass/Vol] 2.6 mg/dL High NINF - 1.2 mg/dL [facility] Calcium [Mass/Vol] 8.4 mg/dL 8.4 - 10. 2 mg/dL [facility] Chloride [Moles/Vol] 102 mmol/L 98 - 10 7 mmol/L [facility] CO2 [Moles/Vol] 18 mmol/L Low 22 - 29 mmol/L [facility] Creatinine [Mass/Vol] 1.8 mg/dL High 0.72 - 1.25 mg/dL [facility] GFR/1.73 sq M.predicted (S/P/Bld) [Vol rate/Area] 46.4 mL/min Low - PINF [facility] Glucose [Mass/Vol] 94 mg/dL 74 - 100 mg/dL [facility] Interpretation and review of laboratory results Abnormal [facility] Potassium [Moles/Vol] 4 mmol/L 3.5 - 5.1 mmol/L [facility] Protein [Mass/Vol] 5.6 g/dL Low 6.4 - 8.3 g/dL [facility] Sodium [Moles/Vol] 130 mmol/L Low 136 - 145 mmol/L [facility] Urea nitrogen [Mass/Vol] 39 mg/dL High 8 - 21 mg/dL [facility] Consulton 08-11-2024 Consult Normal [facility] Consult Normal [facility] DRUGS OF ABUSEon 08-11-2024 AMPHETAMINE SCREEN Negative Normal [facility] Comment on above: Performed By: #### L [id number] ####Cuff Cutter: NICOLE BOWERS ([id number])[facility] ([facility])[address] [place] [address] BARBITURATES SCREEN Negative Normal [facility] Comment on above: Performed By: #### L [id number] ####Cuff Cutter: NICOLE BOWERS ([id number])[facility] ([facility])[address] BENZODIAZEPINE SCREEN Negative Normal [facility] Comment on above: Performed By: #### L [id number] ####Cuff Cutter: NICOLE BOWERS ([id number])[facility] ([facility])[address] [place] [address] COCAINE METAB. SCREEN Negative Normal [facility] Comment on above: Performed By: #### L [id number] ####Cuff Cutter: NICOLE BOWERS ([id number])[facility] ([facility])[address] [place] [address] FENTANYL SCREEN, UR QUAL Negative Normal [facility] Comment on above: Result Comment: ORDE R COMMENTS:The expected value for all of the drugs listed above is Negative.The following drugs or drug groups have been screened for by Immunoassay at the following thresholds:Amphetamine class (1000 ng/mL)Barbiturates (200 ng/mL)Benzodiazepines (200 ng/mL)Cocaine (300 ng/mL)Methadone (300 ng/mL)Opiates (300 ng/mL)Oxycodone (100 ng/mL)PCP (25 ng/mL)Fentanyl (1.0 ng/ml)NOTE: These results are for medical treatment only. Analysis performed using non-forensic procedures. POSITIVE results are NOT confirmed by a more specificalternative method unless requested. If confirmation is needed, request confirmation under separate order. Performed By: #### L [id number] ####Cuff Cutter: NICOLE BOWERS ([id number])[facility] ([facility])[address] [place] [address] [place] METHADONE SCREEN Negative Normal [facility] Comment on above: Performed By: #### L [id number] ####Cuff Cutter: NICOLE BOWERS ([id number])[facility])[address] OPIATES SCREEN Positive Normal [facility] Comment on above: Performed By: #### L [id number] ####Cuff Cutter: NICOLE BOWERS ([id number])[facility] ([facility])[address] OXYCODONE SCREEN Negative Normal [facility] Comment on above: Performed By: #### L [id number] ####Cuff Cutter: NICOLE BOWERS ([id number])[facility])[address] [place] [address] PHENCYCLIDINE SCREEN Negative Normal [facility] Comment on above: Performed By: #### L [id number] ####Cuff Cutter: NICOLE BOWERS ([id number])[facility] ([facility])[address] [place] [address] ECG 12-LEADon 08-11-2024 ECG 12-LEAD IMPRESSION: Sinus tachycardia Left atrial enlargement IVCD, CONSIDER ATYPICAL LBBB Electronically Signed On 08-11-2024 12:27:06 EST by Angel Luis Morales Normal [facility] HIGH SENSITIVITY TROPONIN, S ERIAL, SECOND TESTon 08-11-2024 2H TROPONIN HS (SERIAL 2ND TROPONIN) 22 ng/L Normal <=35 [facility] Comment on above: Result Comment: 2h t roponin (2nd troponin) samples collected between 1h 40 min and 2h and 20 min of the baseline collection time can be utilized to interpret delta troponins as per [facility] algorithms. Samples collected outside this timeframe need to be interpreted clinically. Performed By: #### L [id number], LAB17 ####Cuff Cutter: NICOLE BOWERS ([id number])[facility] ([facility])[address] [place] [address] Laboratory - Chemistry and C hemistry - challengeOrdered By: Michelle Aguilar on 08-11-2024 Base excess Calc (BldV) [Moles/Vol] -1.3000 mmol/L -3.0 - 3.0 mmol/L [facility] CO2 (BldV) [Partial pressure] 29.6 mm[Hg] Low [facility] CO2 [Moles/Vol] 22 mmol/L Low 24.0 - 28.0 mmol/L [facility] HCO3 (Bld) [Moles/Vol] 21.1 mmol/L Low 23.0 - 27.0 mmol/L [facility] Oxygen (BldV) [Partial pressure] 120.8 mm[Hg] mm Hg [facility] pH (BldV) 7.47 [pH] High 7.330 - 7.430 [facility] h Laboratory - Coagulationon 0 08-11-2024 aPTT Coag (PPP) [Time] 26.8 s 20.0 - 30.5 s [facility] INR Coag (PPP) [Relative time] 1.4 {INR} High 0.9 - 1.1 [facility] PT Coag (Bld) [Time] 15.7 s High 9.0 - 12.0 s [facility] - Drug toxicology on 08-11-2024 Amphetamines Screen method >1000 ng/mL Ql (U) Negative [facility] Barbiturates Screen method >200 ng/mL Ql (U) Negative [facility] Benzodiazepines Ql (U) Negative [facility] Methadone Screen Ql (U) Negative [facility] Opiates Screen Ql (U) Positive [facility] oxyCODONE Ql (U) Negative [facility] alth Phencyclidine Ql (U) Negative [facility] Laboratory - Hematology and Cell countsOrdered By: Michelle Aguilar on 08-11-2024 Hemoglobin (Bld) [Mass/Vol] 15 g/dL Screen only [facility] No Panel Informationon 08-11 COCAINE METAB. SCREEN Negative [facility] FENTANYL SCREEN, UR QUAL Negative [facility] P [place] 70 degrees [facility] IN Interval 144 ms [facility] QRS [place] 158 degrees [facility] QRSD Interval 153 ms [facility] QT Interval 400 ms [facility] QTC Interval 536 ms [facility] T Wave [place] -5 degrees [facility] CV EPIPHANY [facility] Interpretation and review of laboratory results Abnormal [facility] 2h Troponin HS (Serial 2nd Troponin) 22 ng/L NINF - 35 ng/L [facility] Interpretation and review of laboratory results Normal [facility] No Panel InformationOrdered By: Michelle Aguilar on 08-11-2024 Interpretation and review of laboratory results Abnormal [facility] Source Of Oxygen Room Air [facility] PROTIME AND APTTon aPTT Coag (Bld) [Time] 26.8 s Normal 20.0-30.5 [facility] Comment on above: Performed By: #### L [id number] ####Cuff Cutter: NICOLE BOWERS ([id number])[facility] ([facility] [place] [address] INR Coag (PPP) [Relative time] 1.4 {INR} High 0.9-1.1 [facility] Comment on above: Result Comment: Wili mmended Anticoagulant Therapy: SEE BELOW----- INR of 2.0 - 3.0 : - Prophylaxis of Venous Thrombosis (high-risk surgery) - Treatment of Venous Thrombosis - Treatment of Pulmonary Embolism (Includes tissue heart valves, Acute Myocardial Infarction to prevent systemic embolism, Valvular Heart Disease, and Atrial Fibrillation)----- INR of 2.5 - 3.5 : - Mechanical Prosthetic Valves (high risk) - If oral anticoagulant therapy is used to prevent Myocardial Infarction Performed By: #### L [id number] ####Cuff Cutter: NICOLE BOWERS ([id number])[facility])[address] [place] [address] PT Coag (PPP) [Time] 15.7 s High 9.0-12.0 [facility] Comment on above: Performed By: #### L [id number] ####Cuff Cutter: NICOLE BOWERS ([id number])[facility] ([facility])[address] [place] [address] Progress Noteon 08-11-2024 Progress Note Normal [facility] Progress Note .Nutrition rescreen completed. Chart reviewed. Patient to be monitored and followed by the diet industrial engineering technician. Melissa Cortes, PAO Normal [facility] Progress Note Normal [facility] Progress Note Normal [facility] Progress Note Normal [facility] US Heart TransthoracicOrdere d By: Ana Singletary on 08-11-2024 Ao Root Index 1.44 cm/m2 [facility] Work Phone: Aortic Root 2.9 cm [facility] Work Phone: Aortic valve Mean systole pressure gradient by US.doppler derived full Bernoulli 1 mmHg [facility] Work Phone: Aortic valve Orifice area by US 2.8 cm2 [facility] Work Phone: Aortic valve Peak systolic flow by US.doppler 0.5 m/s [facility] Work Phone: Ascending [facility]orta 3.2 [facility] Work Phone: Ascending Aorta Index 1.58 cm/m2 [facility] Work Phone: [phone] AV Area by Peak Velocity 2.4 cm2 [facility] Work Phone: [phone] AV Area by VTI 2 cm2 [facility] Work Phone: [phone] AV Peak Gradient 2 mmHg [facility] Work Phone: [phone] AV Peak Velocity 0.7 m/s [facility] Work Phone: AV Velocity Ratio 0.86 [facility] Work Phone: AV VTI 9.5 cm [facility] Work Phone: EMILY/BSA Peak Velocity 1.2 cm2/m2 [facility] Work Phone: [phone] EMILY/BSA VTI 1 cm2/m2 [facility] Work Phone: [phone] E/E' Lateral 8.14 [facility] Work Phone: E/E' Ratio (Averaged) 9.77 [facility] Work Phone: [phone] E/E' Septal 11.4 [facility] Work Phone: Est. RA Pressure 15 mmHg [facility] Work Phone: Fractional Shortening 2D 15 % 28 - 44 % [facility] Work Phone: [phone] Global Longitudinal Strain -4.1 % [facility] Work Phone: Interpretation and review of laboratory results Abnormal [facility] Work Phone: [phone] IVC Diameter 3.2 cm [facility] Work Phone: [phone] IVSd 0.7 cm 0.6 - 1.0 cm [facility] Work Phone: [phone] LA Diameter 4.8 cm [facility] Work Phone: LA Size Index 2.38 cm/m2 [facility] Work Phone: LA Volume 2C 173 mL Abnormal 18 - 58 mL [facility] Work Phone: LA Volume 4C 111 mL Abnormal 18 - 58 mL [facility] Work Phone: LA Volume A/L 152 mL [facility] Work Phone: LA Volume BP 146 mL Abnormal 18 - 58 mL [facility] Work Phone: LA Volume Index 2C 86 mL/m2 Abnormal 16 - 34 mL/m2 [facility] Work Phone: LA Volume Index 4C 55 mL/m2 Abnormal 16 - 34 mL/m2 [facility] Work Phone: LA Volume Index A/L 75 mL/m2 16 - 34 mL/m2 [facility] Work Phone: LA Volume Index BP 72 ml/m2 Abnormal 16 - 34 ml/m2 [facility] Work Phone: LA/AO Root Ratio 1.66 [facility] Work Phone: Left ventricular Ejection fraction by US.2D+Calculated by biplane method of disks 18 % Abnormal 55 - 100 % [facility] Work Phone: LV E' Lateral Velocity 7 cm/s [facility] Work Phone: LV E' Septal Velocity 5 cm/s [facility] Work Phone: LV EDV A2C 210 mL [facility] Work Phone: LV EDV A4C 150 mL [facility] Work Phone: [phone] LV EDV BP 182 mL Abnormal 67 - 155 mL [facility] Work Phone: LV EDV Index A2C 104 mL/m2 [facility] Work Phone: [phone] LV EDV Index A4C 74 mL/m2 [facility] Work Phone: LV EDV Index BP 90 mL/m2 [facility] Work Phone: LV Ejection Fraction A2C 23 % [facility] Work Phone: LV Ejection Fraction A4C 14 % [facility] Work Phone: LV ESV A2C 162 mL [facility] Work Phone: [phone] LV ESV A4C 129 mL [facility] Work Phone: LV ESV BP 149 mL Abnormal 22 - 58 mL [facility] Work Phone: LV ESV Index A2C 80 mL/m2 [facility] Work Phone: LV ESV Index A4C 64 mL/m2 [facility] Work Phone: LV ESV Index BP 74 mL/m2 [facility] Work Phone: LV Mass 2D 198.1 g 88 - 224 g [facility] Work Phone: LV Mass 2D Index 98.1 g/m2 49 - 115 g/m2 [facility] Work Phone: LV RWT Ratio 0.25 [facility] Work Phone: LVIDd 6.5 cm Abnormal 4.2 - 5.9 cm [facility] Work Phone: LVIDd Index 3.22 cm/m2 [facility] Work Phone: LVIDs 5.5 cm [facility] Work Phone: LVIDs Index 2.72 cm/m2 [facility] Work Phone: [phone] LVOT Cardiac Output 1.8 liter/minute [facility] Work Phone: LVOT Diameter 1.9 cm [facility] Work Phone: LVOT Mean Gradient 1 mmHg [facility] Work Phone: [phone] LVOT Peak Gradient 1 mmHg [facility] Work Phone: [phone] LVOT Peak Velocity 0.6 m/s [facility] Work Phone: LVOT Stroke Volume Index 9.1 mL/m2 [facility] Work Phone: LVOT SV 18.4 ml [facility] Work Phone: [phone] LVOT VTI 6.5 cm [facility] Work Phone: LVOT:AV VTI Index 0.68 [facility] Work Phone: LVPWd 0.8 cm 0.6 - 1.0 cm [facility] Work Phone: MR VTI 118.3 cm [facility] Work Phone: [phone] MV A Velocity 0.47 m/s [facility] Work Phone: MV E Velocity 0.57 m/s [facility] Work Phone: MV E Wave Deceleration Time 128.5 ms [facility] Work Phone: MV E/A 1.21 [facility] Work Phone: MV Nyquist Velocity 48 cm/s [facility] Work Phone: MV Regurg Velocity PISA 3.6 m/s [facility] Work Phone: RA Area 4C 161 mL [facility] Work Phone: RV Basal Dimension 6.2 cm [facility] Work Phone: RV Free Wall Peak S' 13 cm/s [facility] Work Phone: RV Longitudinal Dimension 8.2 cm [facility] Work Phone: [phone] RV Mid Dimension 3.8 cm [facility] Work Phone: RVSP 27 mmHg [facility] Work Phone: TAPSE 1.8 cm 1.7 cm [facility] Work Phone: TR Max Velocity 1.7 m/s [facility] Work Phone: TR Peak Gradient 12 mmHg [facility] Work Phone: TV Nyquist Velocity 48 cm/s [facility] Work Phone: [facility] Work Phone: US Heart Transthoracicon CV CPACS Urinalysis complete panel (U )on 08-11-2024 Bilirubin Ql (U) Negative Negative mg/dL [facility] Clarity (U) Clear Clear [facility] Color (U) Light Yellow Lt. Yellow [facility] Glucose Ql (U) Normal Normal (<70) mg/dL [facility] Hemoglobin Ql (U) Negative Negative mg/dL [facility] Interpretation and review of laboratory results Normal [facility] Ketones (U) [Mass/Vol] Negative Negat dai mg/dL [facility] Leukocyte esterase Test strip Ql (U) Negative Negative Nicky/uL [facility] Nitrite Ql (U) Negative Negative [facility] th pH (U) 5.0 [pH] 5.0 - 8.0 pH [facility] Protein (U) [Mass/Vol] Negative Negat dai mg/dL [facility] Specific gravity (U) [Rel density] 1.007 1.005 - 1.030 [facility] Urobilinogen (U) [Mass/Vol] Normal Normal (0-1) mg/dL [facility] Vital signson 08-11-2024 Heart rate 108 /min bpm [facility] Vital signsOrdered By: Kavitha Aguilar on 08-11-2024 Oxygen saturation in Venous blood 98.6 % [facility] XR CHEST 1 VIEWon 08-11-2024 XR CHEST 1 VIEW Normal [facility] XR Chest Single viewon 08-11 [facility] Radiology Study observation (narrative) [facility] XR Chest Single viewOrdered By: Blanche Doyle on 08-11-2024 [facility] Work Phone: 30on 08-10-2024 30 Normal [facility] ED Nursing Noteon 08-10-2024 ED Nursing Note Report called to 5W Normal [facility] ED Nursing Note Pt ambulatory to bathroom with steady gait. Normal [facility] ED Nursing Note Pt reuestning meds for pain and nausea Normal [facility] ED Nursing Note Pt expressing frustration of continued wait time. Ice chips are provided per request Normal [facility] ED Nursing Note [facility] contacted for update. Pt aware of continued wait time for bed assignment. No other requests at present time. Normal [facility] ED Nursing Note Pt declines four eyes skin check for admission Normal [facility] ED Nursing Note PO fluids and light meal provided. Pt updated and aware of continued wait time for bed assignment. Normal [facility] ED Nursing Note Pt has oxygen remove d and sats have been maintained at 97-100% on room air. Will continue to monitor. Normal [facility] ED Nursing Note This nurse returned to room, No urine in urinal or bedside commode, no bm in bedside commode noted. A wipe was in bedside commode. Commode emptied. Patients cardiac monitoring and bp cuff that patient removed was replaced. Normal [facility] ED Nursing Note Normal [facility] ED Nursing Note Notified physician patients spo2 decreasing and blood pressures soft 2L o2 initiated Normal [facility] ED Nursing Note Physician aware unable to collect 2nd trop Normal [facility] Laboratory - Chemistry and C hemistry - challengeon 08-10-2024 Magnesium [Mass/Vol] 2 mg/dL 1.6 - 2 .6 mg/dL [facility] Magnesium [Mass/Vol]on 08-10 [facility] No Panel Informationon 08-10 Interpretation and review of laboratory results Normal [facility] Phosphate [Moles/Vol]on 07-31 Phosphate [Mass/Vol] 4.1 mg/dL 2.3 - 4 .7 mg/dL [facility] US Kidneyon 08-10-2024 [facility] Radiology Study observation (narrative) [facility] KidneyOrdered By: Nir Shen on 08-10-2024 [facility] Work Phone: US RENAL COMPLETEon 08-10-19 25 US RENAL COMPLETE Normal [facility] CBC W Auto Differential pane l (Bld)on 08-09-2024 Basophils (Bld) [#/Vol] 0 10*3/uL 0.0 - 0.2 10*3/uL [facility] Basophils/100 WBC (Bld) 0.3 % 0.0 - 2.0 % [facility] Eosinophils (Bld) [#/Vol] 0 10*3/uL 0.0 - 0.5 10*3/uL [facility] Eosinophils/100 WBC (Bld) 0.3 % 0.0 - 6.0 % [facility] Erythrocyte distribution width (RBC) [Ratio] 13.2 % 11.5 - 15.0 % [facility] Hematocrit (Bld) [Volume fraction] 42.8 % 40.0 - 52.0 % [facility] Hemoglobin (Bld) [Mass/Vol] 14.2 g/dL 13.0 - 18.0 g/dL [facility] Immature granulocytes (Bld) [#/Vol] 0 10*3/uL NINF - 0.1 10*3/uL [facility] Immature granulocytes/100 WBC (Bld) 0.2 % 0.0 - 2.0 % [facility] Interpretation and review of laboratory results Abnormal [facility] Lymphocytes (Bld) [#/Vol] 3.1 10*3/uL 1.0 - 4.3 10*3/uL [facility] Lymphocytes/100 WBC (Bld) 35.6 % 15.0 - 45.0 % [facility] MCH (RBC) [Entitic mass] 33.7 pg 26.0 - 34.0 pg [facility] MCHC (RBC) [Mass/Vol] 33.2 % 30.5 - 36.0 % [facility] MCV (RBC) [Entitic vol] 101.7 fL High 77.0 - 99.0 fL [facility] Monocytes (Bld) [#/Vol] 0.6 10*3/uL 0.0 - 0.9 10*3/uL [facility] Monocytes/100 WBC (Bld) 6.5 % 5.0 - 13.0 % [facility] Neutrophils (Bld) [#/Vol] 5 10*3/uL 1.8 - 7.5 10*3/uL [facility] Neutrophils/100 WBC (Bld) 57.1 % 38.0 - 82.0 % [facility] Nucleated RBC/100 WBC (Bld) [Ratio] 0 % [facility] Platelet mean volume (Bld) [Entitic vol] 9.9 fL 9.0 - 12.7 fL [facility] Platelets (Bld) [#/Vol] 245 10*3/uL 140 - 440 10*3/uL [facility] RBC (Bld) [#/Vol] 4.21 10*6/uL Low 4.40 - 5.9 0 10*6/uL [facility] WBC (Bld) [#/Vol] 8.8 10*3/uL 3.6 - 10.7 10*3/uL [facility] CBC WITH AUTO DIFFERENTIALon 08-09-2024 Basophils (Bld) [#/Vol] 0.0 10*3/uL Normal 0.0-0.2 [facility] Comment on above: Performed By: #### L [id number] ####Cuff Cutter: NICOLE BOWERS ([id number])[facility] ([facility])[address] [place] [address] Basophils/100 WBC (Bld) 0.3 % Normal 0.0-2.0 [facility] Comment on above: Performed By: #### L [id number] ####Cuff Cutter: NICOLE BOWERS ([id number])[facility] ([facility])[address] [place] [address] [place] Eosinophils (Bld) [#/Vol] 0.0 10*3/uL Normal 0.0-0.5 [facility] Comment on above: Performed By: #### L [id number] ####Cuff Cutter: NICOLE BOWERS ([id number])[facility] ([facility])[address] [place] [address] [place] Eosinophils/100 WBC (Bld) 0.3 % Normal 0.0-6.0 [facility] Comment on above: Performed By: #### L [id number] ####Cuff Cutter: NICOLE BOWERS ([id number])[facility] ([facility])[address] [place] [address] Erythrocyte distribution width (RBC) [Ratio] 13.2 % Normal 11.5-15.0 [facility] Comment on above: Performed By: #### L [id number] ####Cuff Cutter: NICOLE BOWERS ([id number])[facility] ([facility])[address] [place] [address] Hematocrit (Bld) [Volume fraction] 42.8 % Normal 40.0-52.0 [facility] Comment on above: Performed By: #### L [id number] ####Cuff Cutter: NICOLE BOWERS ([id number])[facility] ([facility])[address] [place] [address] Hemoglobin (Bld) [Mass/Vol] 14.2 g/dL Normal 13.0-18.0 [facility] Comment on above: Performed By: #### L [id number] ####Cuff Cutter: NICOLE BOWERS ([id number])[facility] ([facility])[address] [place] [address] IMMATURE GRANS % 0.2 % Normal 0.0-2.0 [facility] Comment on above: Performed By: #### L [id number] ####Cuff Cutter: NICOLE BOWERS ([id number])[facility] ([facility])[address] [place] [address] IMMATURE GRANS ABSOLUTE 0.0 10*3/uL Normal <0.1 [facility] Comment on above: Performed By: #### L [id number] ####Cuff Cutter: NICOLE BOWERS ([id number])[facility] ([facility])[address] [place] [address] [place] Lymphocytes (Bld) [#/Vol] 3.1 10*3/uL Normal 1.0-4.3 [facility] Comment on above: Performed By: #### L [id number] ####Cuff Cutter: NICOLE BOWERS ([id number])[facility] ([facility])[address] [place] [address] [place] Lymphocytes/100 WBC (Bld) 35.6 % Normal 15.0-45.0 [facility] Comment on above: Performed By: #### L [id number] ####Cuff Cutter: NICOLE BOWERS ([id number])[facility] ([facility])[address] [place] [address] MCH (RBC) [Entitic mass] 33.7 pg Normal 26.0-34.0 [facility] Comment on above: Performed By: #### L [id number] ####Cuff Cutter: NICOLE BOWERS ([id number])[facility] ([facility])[address] [place] [address] MCHC 33.2 % Normal 30.5-36.0 [facility] Comment on above: Performed By: #### L [id number] ####Cuff Cutter: NICOLE BOWERS ([id number])[facility] ([facility])[address] [place] [address] MCV (RBC) [Entitic vol] 101.7 fL High 77.0-99.0 [facility] Comment on above: Performed By: #### L [id number] ####Cuff Cutter: NICOLE BOWERS ([id number])[facility] ([facility])[address] [place] [address] Monocytes (Bld) [#/Vol] 0.6 10*3/uL Normal 0.0-0.9 [facility] Comment on above: Performed By: #### L [id number] ####Cuff Cutter: NICOLE BOWERS ([id number])[facility] ([facility])[address] [place] [address] [place] Monocytes/100 WBC (Bld) 6.5 % Normal 5.0-13.0 [facility] Comment on above: Performed By: #### L [id number] ####Cuff Cutter: NICOLE BOWERS ([id number])[facility] ([facility])[address] [place] [address] NEUTROPHILS ABSOLUTE 5.0 10*3/uL Normal 1.8-7.5 [facility] Comment on above: Performed By: #### L [id number] ####Cuff Cutter: NICOLE BOWERS ([id number])[facility] ([facility])[address] [place] [address] [place] Neutrophils/100 WBC (Bld) 57.1 % Normal 38.0-82.0 [facility] Comment on above: Performed By: #### L [id number] ####Cuff Cutter: NICOLE BOWERS ([id number])[facility] ([facility])[address] NRBC 0.0 /100 WBCs Normal 0.0-2.0 [facility] Comment on above: Performed By: #### L [id number] ####Cuff Cutter: NICOLE BOWERS ([id number])[facility] ([facility])[address] [place] [address] Platelet mean volume (Bld) [Entitic vol] 9.9 fL Normal 9.0-12.7 [facility] Comment on above: Result Comment: MPV is a calculated measurement using platelet volume ratio Performed By: #### L [id number] ####Cuff Cutter: NICOLE BOWERS ([id number])[facility] ([facility])[address] [place] [address] [place] Platelets (Bld) [#/Vol] 245 10*3/uL Normal 140-440 [facility] Comment on above: Performed By: #### L [id number] ####Cuff Cutter: NICOLE BOWERS ([id number])[facility] ([facility])[address] [place] [address] [place] RBC (Bld) [#/Vol] 4.21 10*6/uL Low 4.40-5.90 [facility] Comment on above: Performed By: #### L [id number] ####Cuff Cutter: NICOLE BOWERS ([id number])[facility] ([facility])[address] [place] [address] [place] WBC (Bld) [#/Vol] 8.8 10*3/uL Normal 3.6-10.7 [facility] Comment on above: Performed By: #### L [id number] ####Cuff Cutter: NICOLE BOWERS ([id number])[facility] ([facility])[address] COMPREHENSIVE METABOLIC PANE Ming 08-09-2024 Albumin [Mass/Vol] 3.4 g/dL Low 3.5-5.0 [facility] Comment on above: Performed By: #### L [id number], [id number], [id number], LAB17, [id number], LAB99 ####Cuff Cutter: NICOLE BOWERS ([id number])[facility] ([facility])[address] ALP [Catalytic activity/Vol] 194 U/L High 40-150 [facility] Comment on above: Performed By: #### L [id number], [id number], [id number], LAB17, [id number], LAB99 ####Cuff Cutter: NICOLE BOWERS ([id number])[facility] ([facility])[address] ALT [Catalytic activity/Vol] 95 U/L High <40 [facility] Comment on above: Performed By: #### L AB113, [id number], [id number], LAB17, [id number], LAB99 ####Cuff Cutter: NICOLE BOWERS ([id number])[facility] ([facility])[address] Anion gap [Moles/Vol] 8 mmol/L Normal 3-13 [facility] Comment on above: Performed By: #### L [id number], [id number], [id number], LAB17, KPM981, LAB99 ####Cuff Cutter: NICOLE BOWERS ([id number])[facility] ([facility])[address] AST [Catalytic activity/Vol] 52 U/L High <34 [facility] Comment on above: Performed By: #### L [id number], [id number], [id number], LAB17, TEN867, LAB99 ####Cuff Cutter: NICOLE BOWERS ([id number])[facility] ([facility])[address] Bilirubin [Mass/Vol] 2.2 mg/dL High <1.2 [facility] Comment on above: Performed By: #### L [id number], [id number], [id number], LAB17, JFR429, LAB99 ####Cuff Cutter: NICOLE BOWERS ([id number])[facility] ([facility])[address] Calcium [Mass/Vol] 8.8 mg/dL Normal 8.4-10.2 [facility] Comment on above: Performed By: #### L AB113, [id number], [id number], LAB17, ZHD606, LAB99 ####Cuff Cutter: NICOLE BOEWRS ([id number])[facility] ([facility])[address] [place] [address] [place] Chloride [Moles/Vol] 104 mmol/L Normal 98-107 [facility] Comment on above: Performed By: #### L AB113, [id number], [id number], LAB17, JOI847, LAB99 ####Cuff Cutter: NICOLE BOWERS ([id number])[facility] ([facility])[address] [place] [address] [place] CO2 [Moles/Vol] 27 mmol/L Normal 22-29 [facility] Comment on above: Performed By: #### L AB113, [id number], [id number], LAB17, MRO746, LAB99 ####Cuff Cutter: NICOLE BOWERS ([id number])[facility] ([facility])[address] [place] [address] [place] Creatinine [Mass/Vol] 1.94 mg/dL High 0.72-1.25 [facility] Comment on above: Performed By: #### L AB113, [id number], [id number], LAB17, AIU126, LAB99 ####Cuff Cutter: NICOLE BOWERS ([id number])[facility] ([facility])[address] [place] [address] [place] GLOMERULAR FILTRATION RATE ML/MIN/1.73 SQ M.PREDICTED 42.4 mL/min/1.73m*2 Low >60.0 [facility] Comment on above: Result Comment: Calc ulation based on the Chronic Kidney Disease Epidemiology Collaboration (CKD-EPI) equation refit without adjustment for race Performed By: #### L AB113, OET544, [id number], LAB17, ZQT313, LAB99 ####Cuff Cutter: NICOLE BOWERS ([id number])[facility]OSPITALKAAMLJIT VIKKITMAN (SWRLAB)[address] [place] [address] Glucose [Mass/Vol] 139 mg/dL High 74-100 [facility] Comment on above: Performed By: #### L AB113, [id number], [id number], LAB17, WAC185, LAB99 ####Cuff Cutter: NICOLE BOWERS ([id number])[facility] HOSPITALKAMALJIT BENJAMINAN (SWRLAB)[address] [place] [address] Potassium [Moles/Vol] 3.8 mmol/L Normal 3.5-5.1 [facility] Comment on above: Result Comment: [facility] potassium values may be up to 0.5 mmol/L lower than serum values. Performed By: #### L AB113, GOV401, [id number], LAB17, SDO526, LAB99 ####Cuff Cutter: NICOLE BOWERS ([phone])[facility]FAIRHILLKeyon FLOREZTMAN (SWRLAB)[address] [place] [address] Protein [Mass/Vol] 6.4 g/dL Normal 6.4-8.3 [facility] Comment on above: Performed By: #### L AB113, NVU249, [id number], LAB17, LLM874, LAB99 ####Cuff Cutter: NICOLE BOWERS ([id number])[facility] KAMALJIT FLOREZTMAN (SWRLAB)[address] Sodium [Moles/Vol] 139 mmol/L Normal 136-145 [facility] Comment on above: Performed By: #### L AB113, WTR455, [id number], LAB17, YHW083, LAB99 ####Cuff Cutter: NICOLE BOWERS ([id number])[facility] HOSPITALKAMALJITSHORTY FLOREZTMAN (SWRLAB)[address] Urea nitrogen [Mass/Vol] 35 mg/dL High 8-21 [facility] Comment on above: Performed By: #### L AB113, [id number], [id number], LAB17, TUQ417, LAB99 ####Cuff Cutter: NICOLE BOWERS ([id number])[facility] BENJAMINAN (SWRLAB)[address] Comprehensive metabolic 1998 panelon 08-09-2024 Albumin [Mass/Vol] 3.4 g/dL Low 3.5 - 5.0 g/dL [facility] ALP [Catalytic activity/Vol] 194 U/L High 40 - 150 U/L [facility] ALT [Catalytic activity/Vol] 95 U/L High NINF - 40 U/L [facility] Anion gap [Moles/Vol] 8 mmol/L 3 - 13 mmol/L [facility] AST [Catalytic activity/Vol] 52 U/L High NINF - 34 U/L [facility] Bilirubin [Mass/Vol] 2.2 mg/dL High NINF - 1.2 mg/dL [facility] Calcium [Mass/Vol] 8.8 mg/dL 8.4 - 10. 2 mg/dL [facility] Chloride [Moles/Vol] 104 mmol/L 98 - 10 7 mmol/L [facility] CO2 [Moles/Vol] 27 mmol/L 22 - 29 mmol/L [facility] Creatinine [Mass/Vol] 1.94 mg/dL High 0.72 - 1.25 mg/dL [facility] GFR/1.73 sq M.predicted (S/P/Bld) [Vol rate/Area] 42.4 mL/min Low - PINF [facility] Glucose [Mass/Vol] 139 mg/dL High 74 - 100 mg/dL [facility] Interpretation and review of laboratory results Abnormal [facility] Potassium [Moles/Vol] 3.8 mmol/L 3.5 - 5.1 mmol/L [facility] Protein [Mass/Vol] 6.4 g/dL 6.4 - 8.3 g/dL [facility] Sodium [Moles/Vol] 139 mmol/L 136 - 145 mmol/L [facility] Urea nitrogen [Mass/Vol] 35 mg/dL High 8 - 21 mg/dL [facility] ECG 12-LEADon 08-09-2024 ECG 12-LEAD Normal [facility] ED Nursing Noteon 08-09-2024 ED Nursing Note Sheets changed per patient request Normal [facility] ED Nursing Note The patient when thi s nurse was leaving room asked when he would be getting pain medications. Physician notified. Normal [facility] ED Nursing Note Normal [facility] ED Provider Noteon ED Provider Note Normal [facility] HIGH SENSITIVITY TROPONIN, S ERIAL BASELINEon 08-09-2024 TROPONIN HS SERIAL BASELINE 31 ng/L Normal <=35 [facility] Comment on above: Result Comment: In i ndividuals presenting with symptoms > 2h, a baseline troponin <= 5 ng/L suggests acutecardiac injury is unlikely and further serial testing is generally not indicated. Performed By: #### L AB113, PYT626, [id number], LAB17, MLZ283, LAB99 ####Cuff Cutter: NICOLE BOWERS ([id number])[facility] (SWRLAB)[address] [place] [address] LIPASEon 08-09-2024 Lipase [Catalytic activity/Vol] 16 U/L Normal <55 [facility] Comment on above: Performed By: #### L AB113, BBL592, [id number], LAB17, IIP728, LAB99 ####Cuff Cutter: NICOLE BOWERS ([id number])[facility] (SWRLAB)[address] [place] [address] Laboratory - Chemistry and C hemistry - challengeon 08-09-2024 Lipase [Catalytic activity/Vol] 16 U/L NINF - 55 U/L [facility] Lipase [Catalytic activity/V ol]on 08-09-2024 Interpretation and review of laboratory results Normal [facility] MAGNESIUMon 08-09-2024 Magnesium [Mass/Vol] 2.0 mg/dL Normal 1.6-2.6 [facility] Comment on above: Result Comment: ALEJANDRO R COMMENTS:Higher values can be expected in females during menses. Performed By: #### L AB113, VNQ475, [id number], LAB17, AMG862, LAB99 ####Cuff Cutter: NICOLE BOWERS ([id number])[facility] OptifyAN (SWRLAB)[address] [place] [address] NT PRO BNPon 08-09-2024 Natriuretic peptide B (Bld) [Mass/Vol] 41354 pg/mL High <125 [facility] Comment on above: Performed By: #### L AB113, [id number], [id number], LAB17, TAK384, LAB99 ####Cuff Cutter: NICOLE BOWERS ([id number])[facility] Zavedenia.comTMAN (SWRLAB)[address] [place] [address] Natriuretic peptide B [Mass/ Vol]on 08-09-2024 Interpretation and review of laboratory results Abnormal [facility] Natriuretic peptide B (Bld) [Mass/Vol] 89101 pg/mL High NINF - 125 pg/mL [facility] No Panel Informationon 08-09 Interpretation and review of laboratory results Normal [facility] Troponin HS Serial Baseline 31 ng/L NINF - 35 ng/L [facility] P [place] 63 degrees [facility] IN Interval 148 ms [facility] QRS [place] -15 degrees [facility] QRSD Interval 95 ms [facility] QT Interval 338 ms [facility] QTC Interval 472 ms [facility] T Wave [place] 122 degrees [facility] CV EPIPHANY [facility] PHOSPHORUSon 08-09-2024 Phosphate [Mass/Vol] 4.1 mg/dL Normal 2.3-4.7 [facility] Comment on above: Performed By: #### L AB113, LDU657, [id number], LAB17, MPY758, LAB99 ####Cuff Cutter: NICOLE BOWERS ([id number])[facility]ILLKeyon FLOWERS (SWRLAB)[address] [place] [address] Vital signson 08-09-2024 Heart rate 117 /min bpm [facility] Chest Single viewon 08-09 [facility] [place] [facility] RADIOLOGY [facility] Radiology Study observation (narrative) [facility] XR Chest Single viewOrdered By: Joel Hi on 08-09-2024 [facility] Work Phone: [phone] 08-05-2024 36 Normal [facility] 36 Normal [facility] 36 Pt presented to ER last evening, approx [address] Astudillo in office. Pt then left the ER AMA, less than 20 minutes after arriving to the ER. Dr Astudillo will review labs Normal [facility] 36 Normal [facility] BASIC METABOLIC PANELon Anion gap [Moles/Vol] 10 mmol/L Normal 3-13 [facility] Comment on above: Performed By: #### L AB20, [id number], LAB15, [id number], [id number] ####Cuff Cutter: NICOLE BOWERS ([id number])[facility])[address] [place] [address] Calcium [Mass/Vol] 8.9 mg/dL Normal 8.4-10.2 [facility] Comment on above: Performed By: #### L AB20, PQA889, LAB15, [id number], KFC234 ####Cuff Cutter: NICOLE BOWERS ([id number])[facility] ([facility])[address] [place] [address] [place] Chloride [Moles/Vol] 98 mmol/L Normal 98-107 [facility] Comment on above: Performed By: #### L AB20, GKQ034, LAB15, [id number], [id number] ####Cuff Cutter: NICOLE BOWERS ([id number])[facility] ([facility])[address] [place] [address] [place] CO2 [Moles/Vol] 25 mmol/L Normal 22-29 [facility] Comment on above: Performed By: #### L AB20, UQD057, LAB15, [id number], ASX403 ####Cuff Cutter: NICOLE BOWERS ([id number])[facility] ([facility])[address] [place] [address] Creatinine [Mass/Vol] 1.62 mg/dL High 0.72-1.25 [facility] Comment on above: Performed By: #### L AB20, OZR746, LAB15, [id number], EPR957 ####Cuff Cutter: NICOLE BOWERS ([id number])[facility])[address] [place] [address] GLOMERULAR FILTRATION RATE ML/MIN/1.73 SQ M.PREDICTED 52.7 mL/min/1.73m*2 Low >60.0 [facility] Comment on above: Result Comment: Calc ulation based on the Chronic Kidney Disease Epidemiology Collaboration (CKD-EPI) equation refit without adjustment for race Performed By: #### L AB20, TNK448, LAB15, [id number], SEH183 ####Cuff Cutter: NICOLE BOWERS ([id number])[facility])[address] [place] [address] Glucose [Mass/Vol] 113 mg/dL High 74-100 [facility] Comment on above: Performed By: #### L AB20, KIQ664, LAB15, [id number], DWY395 ####Cuff Cutter: NICOLE BOWERS ([id number])[facility])[address] [place] [address] [place] Potassium [Moles/Vol] 3.6 mmol/L Normal 3.5-5.1 [facility] Comment on above: Result Comment: [facility] potassium values may be up to 0.5 mmol/L lower than serum values. Performed By: #### L AB20, CUH132, LAB15, [id number], PKG015 ####Cuff Cutter: NICOLE BOWERS ([id number])[facility] ([address] Sodium [Moles/Vol] 133 mmol/L Low 136-145 [facility] Comment on above: Performed By: #### L AB20, USD661, LAB15, [id number], VUG113 ####Cuff Cutter: NICOLE BOWERS ([id number])[facility] ([facility])[address] [place] [address] Urea nitrogen [Mass/Vol] 38 mg/dL High 8-21 [facility] Comment on above: Performed By: #### L AB20, JSQ131, LAB15, [id number], [id number] ####Cuff Cutter: NICOLE BOWERS ([id number])[facility] ([facility])[address] [place] [address] Basic metabolic 1998 panelon 08-05-2024 Anion gap [Moles/Vol] 10 mmol/L 3 - 13 mmol/L [facility] Calcium [Mass/Vol] 8.9 mg/dL 8.4 - 10. 2 mg/dL [facility] Chloride [Moles/Vol] 98 mmol/L 98 - 10 7 mmol/L [facility] CO2 [Moles/Vol] 25 mmol/L 22 - 29 mmol/L [facility] Creatinine [Mass/Vol] 1.62 mg/dL High 0.72 - 1.25 mg/dL [facility] GFR/1.73 sq M.predicted (S/P/Bld) [Vol rate/Area] 52.7 mL/min Low - PINF [facility] Comment on above: Calculation based on the Chronic Kidney Disease Epidemiology Collaboration (CKD-EPI) equation refit without adjustment for race Glucose [Mass/Vol] 113 mg/dL High 74 - 100 mg/dL [facility] Potassium [Moles/Vol] 3.6 mmol/L 3.5 - 5.1 mmol/L [facility] Comment on above: Plasma potassium heidi ues may be up to 0.5 mmol/L lower than serum values. Sodium [Moles/Vol] 133 mmol/L Low 136 - 145 mmol/L [facility] Urea nitrogen [Mass/Vol] 38 mg/dL High 8 - 21 mg/dL [facility] CBC W Auto Differential pane l (Bld)on 02-06-2025 Basophils (Bld) [#/Vol] 0 10*3/uL 0.0 - 0.2 10*3/uL [facility] Basophils/100 WBC (Bld) 0.3 % 0.0 - 2.0 % [facility] Eosinophils (Bld) [#/Vol] 0 10*3/uL 0.0 - 0.5 10*3/uL [facility] Eosinophils/100 WBC (Bld) 0.4 % 0.0 - 6.0 % [facility] Erythrocyte distribution width (RBC) [Ratio] 12.9 % 11.5 - 15.0 % [facility] Hematocrit (Bld) [Volume fraction] 42.7 % 40.0 - 52.0 % [facility] Hemoglobin (Bld) [Mass/Vol] 14.1 g/dL 13.0 - 18.0 g/dL [facility] Immature granulocytes (Bld) [#/Vol] 0 10*3/uL NINF - 0.1 10*3/uL [facility] Immature granulocytes/100 WBC (Bld) 0.1 % 0.0 - 2.0 % [facility] Interpretation and review of laboratory results Abnormal [facility] Lymphocytes (Bld) [#/Vol] 2.2 10*3/uL 1.0 - 4.3 10*3/uL [facility] Lymphocytes/100 WBC (Bld) 32.2 % 15.0 - 45.0 % [facility] MCH (RBC) [Entitic mass] 33.4 pg 26.0 - 34.0 pg [facility] MCHC (RBC) [Mass/Vol] 33 % 30.5 - 36.0 % [facility] MCV (RBC) [Entitic vol] 101.2 fL High 77.0 - 99.0 fL [facility] Monocytes (Bld) [#/Vol] 0.7 10*3/uL 0.0 - 0.9 10*3/uL [facility] Monocytes/100 WBC (Bld) 9.5 % 5.0 - 13.0 % [facility] Neutrophils (Bld) [#/Vol] 3.9 10*3/uL 1.8 - 7.5 10*3/uL [facility] Neutrophils/100 WBC (Bld) 57.5 % 38.0 - 82.0 % [facility] Nucleated RBC/100 WBC (Bld) [Ratio] 0 % [facility] Platelet mean volume (Bld) [Entitic vol] 9.7 fL 9.0 - 12.7 fL [facility] Platelets (Bld) [#/Vol] 253 10*3/uL 140 - 440 10*3/uL [facility] RBC (Bld) [#/Vol] 4.22 10*6/uL Low 4.40 - 5.9 0 10*6/uL [facility] WBC (Bld) [#/Vol] 6.8 10*3/uL 3.6 - 10.7 10*3/uL [facility] CBC WITH AUTO DIFFERENTIALon 08-05-2024 Basophils (Bld) [#/Vol] 0.0 10*3/uL Normal 0.0-0.2 [facility] Comment on above: Performed By: #### L [id number] ####Cuff Cutter: NICOLE BOWERS ([id number])[address] Basophils/100 WBC (Bld) 0.3 % Normal 0.0-2.0 [facility] Comment on above: Performed By: #### L [id number] ####Cuff Cutter: NICOLE BOWERS ([id number])[facility])[address] [place] [address] Eosinophils (Bld) [#/Vol] 0.0 10*3/uL Normal 0.0-0.5 [facility] Comment on above: Performed By: #### L [id number] ####Cuff Cutter: NICOLE BOWERS ([id number])[facility])[address] [place] [address] Eosinophils/100 WBC (Bld) 0.4 % Normal 0.0-6.0 [facility] Comment on above: Performed By: #### L [id number] ####Cuff Cutter: NICOLE BOWERS ([id number])[facility])[address] [place] [address] Erythrocyte distribution width (RBC) [Ratio] 12.9 % Normal 11.5-15.0 [facility] Comment on above: Performed By: #### L [id number] ####Cuff Cutter: NICOLE BOWERS ([id number])[facility])[address] [place] [address] Hematocrit (Bld) [Volume fraction] 42.7 % Normal 40.0-52.0 [facility] Comment on above: Performed By: #### L [id number] ####Cuff Cutter: NICOLE BOWERS ([id number])[facility])[address] [place] [address] Hemoglobin (Bld) [Mass/Vol] 14.1 g/dL Normal 13.0-18.0 [facility] Comment on above: Performed By: #### L [id number] ####Cuff Cutter: NICOLE BOWERS ([id number])[facility])[address] [place] [address] IMMATURE GRANS % 0.1 % Normal 0.0-2.0 [facility] Comment on above: Performed By: #### L [id number] ####Cuff Cutter: NICOLE BOWERS ([id number])[facility])[address] [place] [address] IMMATURE GRANS ABSOLUTE 0.0 10*3/uL Normal <0.1 [facility] Comment on above: Performed By: #### L [id number] ####Cuff Cutter: NICOLE BOWERS ([id number])[facility])[address] [place] [address] Lymphocytes (Bld) [#/Vol] 2.2 10*3/uL Normal 1.0-4.3 [facility] Comment on above: Performed By: #### L [id number] ####Cuff Cutter: NICOLE BOWERS ([id number])[facility])[address] [place] [address] Lymphocytes/100 WBC (Bld) 32.2 % Normal 15.0-45.0 [facility] Comment on above: Performed By: #### L [id number] ####Cuff Cutter: NICOLE BOWERS ([id number])[facility])[address] [place] [address] MCH (RBC) [Entitic mass] 33.4 pg Normal 26.0-34.0 [facility] Comment on above: Performed By: #### L [id number] ####Cuff Cutter: NICOLE BOWERS ([id number])[facility])[address] [place] [address] MCHC 33.0 % Normal 30.5-36.0 [facility] Comment on above: Performed By: #### L [id number] ####Cuff Cutter: NICOLE BOWERS ([id number])[facility])[address] [place] [address] MCV (RBC) [Entitic vol] 101.2 fL High 77.0-99.0 [facility] Comment on above: Performed By: #### L [id number] ####Cuff Cutter: NICOLE BOWERS ([id number])[facility])[address] [place] [address] Monocytes (Bld) [#/Vol] 0.7 10*3/uL Normal 0.0-0.9 [facility] Comment on above: Performed By: #### L [id number] ####Cuff Cutter: NICOLE BOWERS ([id number])[facility])[address] [place] [address] Monocytes/100 WBC (Bld) 9.5 % Normal 5.0-13.0 [facility] Comment on above: Performed By: #### L [id number] ####Cuff Cutter: NICOLE BOWERS ([id number])[facility])[address] [place] [address] NEUTROPHILS ABSOLUTE 3.9 10*3/uL Normal 1.8-7.5 [facility] Comment on above: Performed By: #### L [id number] ####Cuff Cutter: NICOLE BOWERS ([id number])[facility])[address] [place] [address] Neutrophils/100 WBC (Bld) 57.5 % Normal 38.0-82.0 [facility] Comment on above: Performed By: #### L [id number] ####Cuff Cutter: NICOLE BOWERS ([id number])[facility])[address] [place] [address] NRBC 0.0 /100 WBCs Normal 0.0-2.0 [facility] Comment on above: Performed By: #### L [id number] ####Cuff Cutter: NICOLE BOWERS ([id number])[facility] ([facility])[address] [place] [address] Platelet mean volume (Bld) [Entitic vol] 9.7 fL Normal 9.0-12.7 [facility] Comment on above: Performed By: #### L [id number] ####Cuff Cutter: NICOLE BOWERS ([id number])[facility] ([facility])[address] [place] [address] Platelets (Bld) [#/Vol] 253 10*3/uL Normal 140-440 [facility] Comment on above: Performed By: #### L [id number] ####Cuff Cutter: NICOLE BOWERS ([id number])[facility] ([facility])[address] [place] [address] RBC (Bld) [#/Vol] 4.22 10*6/uL Low 4.40-5.90 [facility] Comment on above: Performed By: #### L [id number] ####Cuff Cutter: NICOLE BOWERS ([id number])[facility] ([facility])[address] [place] [address] WBC (Bld) [#/Vol] 6.8 10*3/uL Normal 3.6-10.7 [facility] Comment on above: Performed By: #### L [id number] ####Cuff Cutter: NICOLE BOWERS ([id number])[facility])[address] [place] [address] ECG 12-LEADon 08-05-2024 ECG 12-LEAD IMPRESSION: Sinus tachycardia LVH with secondary repolarization abnormality Borderline prolonged QT interval Compared to EKG from 08/04/24, new T wave inversions and ST depression V5 Electronically Signed On 08-05-2024 18:28:44 EST by Roman Alejo Normal [facility] ECG 12-LEAD IMPRESSION: Sinus tachycardia LVH with secondary repolarization abnormality Borderline prolonged QT interval Compared to ECG 07/23/24 No significant change Electronically Signed On 08-05-2024 06:42:39 EST by Chas Haddad Normal [facility] ED Nursing Noteon 08-05-2024 ED Nursing Note Pt came up to this R N stating he wanted to leave and was done waiting. Pt refused to speak with DOUGHNUT MACHINE OPERATOR HELPER. PIV removed. Pt ambulated out of IRP with steady gait. Ashtyn DOUGHNUT MACHINE OPERATOR HELPER made aware pt left Normal [facility] HEPATIC FUNCTION PANELon Albumin [Mass/Vol] 3.4 g/dL Low 3.5-5.0 [facility] Comment on above: Performed By: #### L AB20, SZJ667, LAB15, [id number], [id number] ####Cuff Cutter: NICOLE BOWERS ([phone])[facility])[address] [place] [address] ALP [Catalytic activity/Vol] 173 U/L High 40-150 [facility] Comment on above: Performed By: #### L AB20, KLU520, LAB15, [id number], [id number] ####Cuff Cutter: NICOLE BOWERS ([id number])[facility])[address] [place] [address] ALT [Catalytic activity/Vol] 101 U/L High <40 [facility] Comment on above: Performed By: #### L AB20, PYE996, LAB15, [id number], OLF086 ####Cuff Cutter: NICOLE BOWERS ([id number])[facility])[address] [place] [address] [place] AST [Catalytic activity/Vol] 50 U/L High <34 [facility] Comment on above: Performed By: #### L AB20, YTK975, LAB15, [id number], FJP979 ####Cuff Cutter: NICOLE BOWERS ([id number])[facility] ([facility])[address] [place] [address] Bilirubin [Mass/Vol] 1.9 mg/dL High <1.2 [facility] Comment on above: Performed By: #### L AB20, RUT970, LAB15, [id number], [id number] ####Cuff Cutter: NICOLE BOWERS ([id number])[facility])[address] [place] [address] Bilirubin.indirect [Mass/Vol] 1.0 mg/dL High <0.5 [facility] Comment on above: Performed By: #### L AB20, ADL462, LAB15, [id number], [id number] ####Cuff Cutter: NICOLE BOWERS ([id number])[facility])[address] [place] [address] Protein [Mass/Vol] 6.6 g/dL Normal 6.4-8.3 [facility] Comment on above: Result Comment: Seru m protein values are higher than plasma values. Samples from recumbent persons are lower by up to 0.5 g/dL as compared to ambulatory persons. After 60 years values are lower by up to 0.2 g/dL. Performed By: #### L AB20, HLV811, LAB15, [id number], UMR137 ####Cuff Cutter: NICOLE BOWERS ([id number])[facility])[address] [place] [address] HIGH SENSITIVITY TROPONIN, S ERIAL BASELINEon 08-05-2024 TROPONIN HS SERIAL BASELINE 22 ng/L Normal <=35 [facility] Comment on above: Result Comment: In i ndividuals presenting with symptoms > 2h, a baseline troponin <= 5 ng/L suggests acutecardiac injury is unlikely and further serial testing is generally not indicated. Performed By: #### L AB20, VCC630, LAB15, [id number], [id number] ####Cuff Cutter: NICOLE BOWERS ([id number])[facility])[address] [place] [address] HIGH SENSITIVITY TROPONIN, S ERIAL, SECOND TESTon 08-05-2024 2H TROPONIN HS (SERIAL 2ND TROPONIN) 19 ng/L Normal <=35 [facility] Comment on above: Result Comment: 2h t roponin (2nd troponin) samples collected between 1h 40 min and 2h and 20 min of the baseline collection time can be utilized to interpret delta troponins as per [facility] algorithms. Samples collected outside this timeframe need to be interpreted clinically.Rising or falling troponin delta between 2 ??? 15 ng/L as compared to baseline value requires a 3rd serial troponin Performed By: #### L [id number] ####Cuff Cutter: NICOLE BOWERS ([id number])[facility] ([facility])[address] [place] [address] Hepatic function 2000 panelo n 08-05-2024 Albumin [Mass/Vol] 3.4 g/dL Low 3.5 - 5.0 g/dL [facility] ALP [Catalytic activity/Vol] 173 U/L High 40 - 150 U/L [facility] ALT [Catalytic activity/Vol] 101 U/L High [facility] - [facility] U/L [facility] AST [Catalytic activity/Vol] 50 U/L High [facility] - 34 U/L [facility] Bilirubin [Mass/Vol] 1.9 mg/dL High [facility] - 1.2 mg/dL [facility] Bilirubin.conjugated [Mass/Vol] 1 mg/dL High [facility] - 0.5 mg/dL [facility] Protein [Mass/Vol] 6.6 g/dL 6.4 - 8.3 g/dL [facility] Comment on above: Serum protein values are higher than plasma values. Samples from recumbent persons are lower by up to 0.5 g/dL as compared to ambulatory persons. After 60 years values are lower by up to 0.2 g/dL. Laboratory - Chemistry and C hemistry - challengeon 08-05-2024 Magnesium [Mass/Vol] 2 mg/dL 1.6 - 2 .6 mg/dL [facility] MAGNESIUMon 08-05-2024 Magnesium [Mass/Vol] 2.0 mg/dL Normal 1.6-2.6 [facility] Comment on above: Result Comment: ALEJANDRO R COMMENTS:Higher values can be expected in females during menses. Performed By: #### L AB20, [id number], LAB15, [id number], [id number] ####Cuff Cutter: NICOLE BOWERS ([id number])[facility] ([facility])[address] [place] [address] Magnesium [Mass/Vol]on 08-05 Interpretation and review of laboratory results Normal [facility] Higher values can be expected in females during menses. [facility] NT PRO BNPon 08-05-2024 Natriuretic peptide B (Bld) [Mass/Vol] 81867 pg/mL High <125 [facility] Comment on above: Performed By: #### L AB20, [id number], LAB15, [id number], [id number] ####Cuff Cutter: NICOLE ANAIDLC ([id number])[facility] ([facility])[address] [place] [address] Natriuretic peptide B [Mass/ Vol]on 08-05-2024 Interpretation and review of laboratory results Abnormal [facility] Natriuretic peptide B (Bld) [Mass/Vol] 67801 pg/mL High NINF - 125 pg/mL [facility] No Panel Informationon 08-05 2h Troponin HS (Serial 2nd Troponin) 19 ng/L NINF - 35 ng/L [facility] Comment on above: 2h troponin (2nd tro ponin) samples collected between 1h 40 min and 2h and 20 min of the baseline collection time can be utilized to interpret delta troponins as per [facility] algorithms. Samples collected outside this timeframe need to be interpreted clinically. Rising or falling troponin delta between 2 15 ng/L as compared to baseline value requires a 3rd serial troponin Interpretation and review of laboratory results Normal [facility] Sinus tachycardia LVH with secondary repolarization abnormality Borderline prolonged QT interval Compared to ECG 07/23/24 No significant change Electronically Signed On 08-05-2024 06:42:39 EST by Chas Kaufman D O - 08/05/2024 IMPRESSION: Sinus tachycardia LVH with secondary repolarization abnormality Borderline prolonged QT interval Compared to ECG 07/23/24 No significant change Electronically Signed On 08-05-2024 06:42:39 EST by Chas Haddad [facility] Interpretation and review of laboratory results Normal [facility] Troponin HS Serial Baseline 22 ng/L NINF - 35 ng/L [employer] Comment on above: In individuals prese nting with symptoms > 2h, a baseline troponin <= 5 ng/L suggests acute cardiac injury is unlikely and further serial testing is generally not indicated. [facility] Interpretation and review of laboratory results Abnormal [employer] No Panel InformationOrdered By: Chas Haddad on 08-05-2024 P [place] 74 degrees [employer] Phone: IN Interval 157 ms [employer] Phone: QRS [place] -22 degrees [employer] Phone: QRSD Interval 99 ms [employer] Work Phone: QT Interval 356 ms [employer] Phone: QTC Interval 477 ms [employer] Work Phone: T Wave [place] 154 degrees [employer] Phone: [employer] Work Phone: Progress Noteon 08-05-2024 Progress Note Normal [facility] Vital signsOrdered By: Clementina Haddad on 08-05-2024 Heart rate 108 /min bpm [employer] Work Phone: XR Chest 2 Viewson Cardiac enlargement. No convincing acute pulmonary process seen. Report Dictated on Electronically Signed By: Christopher Faria MD Electronically Signed Date/Time: 08/05/2024 3:26 AM EST [employer] [facility] 1980 [id number] Exam Date/Time: 08/05/2024 02:54 Procedure: XR CHEST 2 VIEWS Ordering Provider: MEJIA STEPHEN Reason For Exam: chest pain CHEST TWO VIEWS EXAM DATE AND TIME: 08/05/2024 2:54 AM EST INDICATION: Chest pain COMPARISON: 07/23/2024 TECHNIQUE: Two views of the thorax were obtained and reviewed. Special views: None. Findings: 1. Lines/Tubes/Devices/H ardware: None. Please confirm function/ position of support lines clinically prior to use. 2. Lungs: No convincing consolidation, pulmonary edema or acute process. 3. Pleura: No pneumothorax or pleural effusions. 4. Heart and mediastinum: Cardiac enlargement, similar to previous 5. Upper abdomen: No definite acute process seen. 6, Spine:No convincing acute process [facility] Christopher Faria MD - 08/05/2024 Patient Name: [facility] MED[facility] 1980 [id number] Exam Date/Time: 08/05/2024 02:54 Procedure: XR CHEST 2 VIEWS Ordering Provider: MEJIA STEPHEN Reason For Exam: chest pain CHEST TWO VIEWS EXAM DATE AND TIME: 08/05/2024 2:54 AM EST INDICATION: Chest pain COMPARISON: 07/23/2024 TECHNIQUE: Two views of the thorax were obtained and reviewed. Special views: None. Findings: 1. Lines/Tubes/Devices/H ardware: None. Please confirm function/ position of support lines clinically prior to use. 2. Lungs: No convincing consolidation, pulmonary edema or acute process. 3. Pleura: No pneumothorax or pleural effusions. 4. Heart and mediastinum: Cardiac enlargement, similar to previous 5. Upper abdomen: No definite acute process seen. 6, Spine:No convincing acute process IMPRESSION: Cardiac enlargement. No convincing acute pulmonary process seen. Report Dictated on Electronically Signed By: Christopher Faria MD Electronically Signed Date/Time: 08/05/2024 3:26 AM EST [facility] Radiology Study observation (narrative) [facility] XR Chest 2 ViewsOrdered By: Christopher Faria on 08-05-2024 [facility] Work Phone: 37on 08-04-2024 37 Normal [facility] ED Provider Noteon ED Provider Note Normal [facility] Progress Noteon 08-04-2024 Progress Note Normal [facility] Progress Note Better controlled today See #1 GDMT Normal [facility] Progress Note 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 Unprovoked at that time [facility] Progress Note Normal [facility] 36on 08-03-2024 36 Unable to contact patient X2 Normal [facility] 36 Normal [facility] 36on 08-02-2024 36 [facility] 36 S: Patient admitted to: [facility] 07/23/24 B: Discharged on : 07/30/24 A: Hospital follow up call initiated to discuss any medication changes, follow up appointments and discharge instructions: Acute kidney injury R: No contact x 1 at : [phone] [facility] [id number] 07-30-2024 [id number] [facility] 30on 07-30-2024 30 Normal [facility] 30 Normal [facility] [id number] 07-30-2024 [id number] [facility] [id number] [facility] ALBUMINon 07-30-2024 Albumin [Mass/Vol] 2.3 g/dL Low 3.5-5.0 [facility] Comment on above: Performed By: #### L AB45, ZQU935, LAB15, ZNK854 ####Cuff Cutter: LESLEE HERNANDEZ ([id number])[facility] ([facility])[address] [place] [address] BASIC METABOLIC PANELon 07-02 Anion gap [Moles/Vol] 8 mmol/L Normal 3-13 [facility] Comment on above: Performed By: #### L AB45, VSX463, LAB15, XVJ595 ####Cuff Cutter: LESLEE HERNANDEZ ([id number])[facility] ([facility])[address] [place] [address] Calcium [Mass/Vol] 6.4 mg/dL Low 8.4-10.2 [facility] Comment on above: Performed By: #### L AB45, EGW015, LAB15, KKB037 ####Cuff Cutter: LESLEE HERNANDEZ ([id number])[facility] ([facility])[address] [place] [address] [place] Chloride [Moles/Vol] 108 mmol/L High 98-107 [facility] Comment on above: Performed By: #### L AB45, FWJ050, LAB15, ZIC429 ####Cuff Cutter: LESLEE HERNANDEZ ([id number])[facility] ([facility])[address] CO2 [Moles/Vol] 24 mmol/L Normal 22-29 [facility] Comment on above: Performed By: #### L AB45, OEM638, LAB15, GYF138 ####Cuff Cutter: LESLEE HERNANDEZ ([id number])[facility] ([facility])[address] Creatinine [Mass/Vol] 1.18 mg/dL Normal 0.72-1.25 [facility] Comment on above: Performed By: #### L AB45, PJP735, LAB15, IDX407 ####Cuff Cutter: LESLEE HERNANDEZ ([id number])[facility] ([facility])[address] GLOMERULAR FILTRATION RATE ML/MIN/1.73 SQ M.PREDICTED 77.1 mL/min/1.73m*2 Normal >60.0 [facility] Comment on above: Result Comment: Calc ulation based on the Chronic Kidney Disease Epidemiology Collaboration (CKD-EPI) equation refit without adjustment for race Performed By: #### L AB45, FAT438, LAB15, QSX576 ####Cuff Cutter: LESLEE HERNANDEZ ([id number])[facility] ([facility])[address] Glucose [Mass/Vol] 92 mg/dL Normal 74-100 [facility] Comment on above: Performed By: #### L AB45, GLK768, LAB15, USV971 ####Cuff Cutter: LESLEE HERNANDEZ ([id number])[facility] ([facility])[address] Potassium [Moles/Vol] 2.8 mmol/L Low 3.5-5.1 [facility] Comment on above: Result Comment: [facility] potassium values may be up to 0.5 mmol/L lower than serum values. Performed By: #### L AB45, ZJL436, LAB15, KOS802 ####Cuff Cutter: LESLEE HERNANDEZ ([id number])[facility] ([facility])[address] Sodium [Moles/Vol] 140 mmol/L Normal 136-145 [facility] Comment on above: Performed By: #### L AB45, JFQ000, LAB15, NIE257 ####Cuff Cutter: LESLEE HERNANDEZ ([id number])[facility] ([facility])[address] Urea nitrogen [Mass/Vol] 30 mg/dL High 8-21 [facility] Comment on above: Performed By: #### L AB45, NRM071, LAB15, ARC803 ####Cuff Cutter: LESLEE HERNANDEZ ([id number])[facility] ([facility])[address] [place] [address] Basic metabolic 1998 panelon 07-30-2024 Anion gap [Moles/Vol] 8 mmol/L 3 - 13 mmol/L [facility] Calcium [Mass/Vol] 6.4 mg/dL Low 8.4 - 10. 2 mg/dL [facility] Chloride [Moles/Vol] 108 mmol/L High 98 - 10 7 mmol/L [facility] CO2 [Moles/Vol] 24 mmol/L 22 - 29 mmol/L [facility] Creatinine [Mass/Vol] 1.18 mg/dL 0.72 - 1.25 mg/dL [facility] GFR/1.73 sq M.predicted (S/P/Bld) [Vol rate/Area] 77.1 mL/min - PINF [facility] Comment on above: Calculation based on the Chronic Kidney Disease Epidemiology Collaboration (CKD-EPI) equation refit without adjustment for race Glucose [Mass/Vol] 92 mg/dL 74 - 100 mg/dL [facility] Potassium [Moles/Vol] 2.8 mmol/L Low 3.5 - 5.1 mmol/L [facility] Comment on above: Plasma potassium heidi ues may be up to 0.5 mmol/L lower than serum values. Sodium [Moles/Vol] 140 mmol/L 136 - 145 mmol/L [facility] Urea nitrogen [Mass/Vol] 30 mg/dL High 8 - 21 mg/dL [facility] Laboratory - Chemistry and C hemistry - challengeon 07-30-2024 Albumin [Mass/Vol] 2.3 g/dL Low 3.5 - 5.0 g/dL [facility] Magnesium [Mass/Vol] 1.3 mg/dL Low 1.6 - 2 .6 mg/dL [facility] MAGNESIUMon 07-30-2024 Magnesium [Mass/Vol] 1.3 mg/dL Low 1.6-2.6 [facility] Comment on above: Result Comment: ALEJANDRO Tatum COMMENTS:Higher values can be expected in females during menses. Performed By: #### L AB45, BNT180, LAB15, NLI220 ####Cuff Cutter: LESLEE HERNANDEZ ([id number])[facility] ([facility])[address] [place] [address] Magnesium [Mass/Vol]on 07-30 Higher values can be expected in females during menses. [facility] NT PRO BNPon 07-30-2024 Natriuretic peptide B (Bld) [Mass/Vol] 59615 pg/mL High <125 [facility] Comment on above: Performed By: #### L AB45, RQW119, LAB15, KBD624 ####Cuff Cutter: LESLEE HERNANDEZ ([id number])[facility])[address] [place] [address] Natriuretic peptide B [Mass/ Vol]on 07-30-2024 Interpretation and review of laboratory results Abnormal [facility] Natriuretic peptide B (Bld) [Mass/Vol] 22633 pg/mL High NINF - 125 pg/mL [facility] No Panel Informationon 07-30 Interpretation and review of laboratory results Abnormal [facility] Interpretation and review of laboratory results Abnormal [facility] Nursing Noteon 07-30-2024 Nursing Note Normal [facility] Progress Noteon 07-30-2024 Progress Note Normal [facility] Progress Note Normal [facility] Progress Note Nutrition update completed. Chart reviewed. Patient continues as a level 1. Normal [facility] 30on 07-29-2024 30 Normal [facility] 30 Normal [facility] CBC W Auto Differential pane l (Bld)on 07-29-2024 Basophils (Bld) [#/Vol] 0 10*3/uL 0.0 - 0.2 10*3/uL [facility] Basophils/100 WBC (Bld) 0.5 % 0.0 - 2.0 % [facility] Eosinophils (Bld) [#/Vol] 0.1 10*3/uL 0.0 - 0.5 10*3/uL [facility] Eosinophils/100 WBC (Bld) 1.7 % 0.0 - 6.0 % [facility] Erythrocyte distribution width (RBC) [Ratio] 13 % 11.5 - 15.0 % [facility] Hematocrit (Bld) [Volume fraction] 38.9 % Low 40.0 - 52.0 % [facility] Hemoglobin (Bld) [Mass/Vol] 12.5 g/dL Low 13.0 - 18.0 g/dL [facility] Immature granulocytes (Bld) [#/Vol] 0 10*3/uL NINF - 0.1 10*3/uL [facility] Immature granulocytes/100 WBC (Bld) 0.3 % 0.0 - 2.0 % [facility] Interpretation and review of laboratory results Abnormal [facility] Lymphocytes (Bld) [#/Vol] 2.3 10*3/uL 1.0 - 4.3 10*3/uL [facility] Lymphocytes/100 WBC (Bld) 39.3 % 15.0 - 45.0 % [facility] MCH (RBC) [Entitic mass] 33.5 pg 26.0 - 34.0 pg [facility] MCHC (RBC) [Mass/Vol] 32.1 % 30.5 - 36.0 % [facility] MCV (RBC) [Entitic vol] 104.3 fL High 77.0 - 99.0 fL [facility] Monocytes (Bld) [#/Vol] 0.5 10*3/uL 0.0 - 0.9 10*3/uL [facility] Monocytes/100 WBC (Bld) 8.6 % 5.0 - 13.0 % [facility] Neutrophils (Bld) [#/Vol] 2.9 10*3/uL 1.8 - 7.5 10*3/uL [facility] Neutrophils/100 WBC (Bld) 49.6 % 38.0 - 82.0 % [facility] Nucleated RBC/100 WBC (Bld) [Ratio] 0 % [facility] Platelet mean volume (Bld) [Entitic vol] 8.9 fL Low 9.0 - 12.7 fL [facility] Platelets (Bld) [#/Vol] 202 10*3/uL 140 - 440 10*3/uL [facility] RBC (Bld) [#/Vol] 3.73 10*6/uL Low 4.40 - 5.9 0 10*6/uL [facility] WBC (Bld) [#/Vol] 5.9 10*3/uL 3.6 - 10.7 10*3/uL [facility] CBC WITH AUTO DIFFERENTIALon 07-29-2024 Basophils (Bld) [#/Vol] 0.0 10*3/uL Normal 0.0-0.2 [facility] Comment on above: Performed By: #### L [id number] ####Cuff Cutter: LESLEE HERNANDEZ ([id number])[facility] ([facility])[address] [place] [address] Basophils/100 WBC (Bld) 0.5 % Normal 0.0-2.0 [facility] Comment on above: Performed By: #### L [id number] ####Cuff Cutter: LESLEE HERNANDEZ ([id number])[facility] ([facility])[address] Eosinophils (Bld) [#/Vol] 0.1 10*3/uL Normal 0.0-0.5 [facility] Comment on above: Performed By: #### L [id number] ####Cuff Cutter: LESLEE HERNANDEZ ([id number])[facility] ([facility])[address] Eosinophils/100 WBC (Bld) 1.7 % Normal 0.0-6.0 [facility] Comment on above: Performed By: #### L [id number] ####Cuff Cutter: LESLEE HERNANDEZ ([id number])[facility] ([facility])[address] [place] [address] Erythrocyte distribution width (RBC) [Ratio] 13.0 % Normal 11.5-15.0 [facility] Comment on above: Performed By: #### L [id number] ####Cuff Cutter: LESLEE HERNANDEZ ([id number])[facility] ([facility])[address] [place] [address] Hematocrit (Bld) [Volume fraction] 38.9 % Low 40.0-52.0 [facility] Comment on above: Performed By: #### L [id number] ####Cuff Cutter: LESLEE TURKTYRONE ([id number])[facility] ([facility])[address] [place] [address] Hemoglobin (Bld) [Mass/Vol] 12.5 g/dL Low 13.0-18.0 [facility] Comment on above: Performed By: #### L [id number] ####Cuff Cutter: LESLEE HERNANDEZ ([id number])[facility] ([facility])[address] [place] [address] IMMATURE GRANS % 0.3 % Normal 0.0-2.0 [facility] Comment on above: Performed By: #### L [id number] ####Cuff Cutter: LESLEE HERNANDEZ ([id number])[facility] ([facility])[address] [place] [address] IMMATURE GRANS ABSOLUTE 0.0 10*3/uL Normal <0.1 [facility] Comment on above: Performed By: #### L [id number] ####Cuff Cutter: LESLEE HERNANDEZ ([id number])[facility] ([facility])[address] [place] [address] Lymphocytes (Bld) [#/Vol] 2.3 10*3/uL Normal 1.0-4.3 [facility] Comment on above: Performed By: #### L [id number] ####Cuff Cutter: LESLEE HERNANDEZ ([id number])[facility] BARBEFRAÍNN ([facility])[address] Lymphocytes/100 WBC (Bld) 39.3 % Normal 15.0-45.0 [facility] Comment on above: Performed By: #### L [id number] ####Cuff Cutter: LESLEE HERNANDEZ ([id number])[facility]A BARBREHOBOTH [facility] SERVICESN ([facility])[address] MCH (RBC) [Entitic mass] 33.5 pg Normal 26.0-34.0 [facility] Comment on above: Performed By: #### L [id number] ####Cuff Cutter: LESLEE MCNEILLNinoskaTYRONE ([id number])[facility]ILLKeyon KNOTTREHOBOTH [facility] SERVICESN ([facility])[address] MCHC 32.1 % Normal 30.5-36.0 [facility] Comment on above: Performed By: #### L [id number] ####Cuff Cutter: LESLEE HERNANDEZ ([id number])[facility]ILLKeyon BARBREHOBOTH MCK[facility] SERVICESN ([facility])[address] MCV (RBC) [Entitic vol] 104.3 fL High 77.0-99.0 [facility] Comment on above: Performed By: #### L [id number] ####Cuff Cutter: LESLEE HERNANDEZ ([id number])[facility]ILLKeyon BARBREHOBOTH [facility] SERVICESN ([facility])[address] Monocytes (Bld) [#/Vol] 0.5 10*3/uL Normal 0.0-0.9 [facility] Comment on above: Performed By: #### L [id number] ####Cuff Cutter: LESLEE HERNANDEZ ([id number])[facility] [place] ([facility])[address] Monocytes/100 WBC (Bld) 8.6 % Normal 5.0-13.0 [facility] Comment on above: Performed By: #### L [id number] ####Cuff Cutter: LSELEE MARY ([id number])[facility] [place] ([facility])[address] NEUTROPHILS ABSOLUTE 2.9 10*3/uL Normal 1.8-7.5 [facility] Comment on above: Performed By: #### L [id number] ####Cuff Cutter: LESLEE MARY ([id number])[facility] [place] ([facility])[address] Neutrophils/100 WBC (Bld) 49.6 % Normal 38.0-82.0 [facility] Comment on above: Performed By: #### L [id number] ####Cuff Cutter: LESLEE HERNANDEZ ([id number])[facility] [place] ([facility])[address] [place] [address] NRBC 0.0 /100 WBCs Normal 0.0-2.0 [facility] Comment on above: Performed By: #### L [id number] ####Cuff Cutter: LESLEE MARY ([id number])[facility] [place] ([facility])[address] Platelet mean volume (Bld) [Entitic vol] 8.9 fL Low 9.0-12.7 [facility] Comment on above: Performed By: #### L [id number] ####Cuff Cutter: LESLEE TURKTYRONE ([id number])[facility] [place] ([facility])[address] Platelets (Bld) [#/Vol] 202 10*3/uL Normal 140-440 [facility] Comment on above: Performed By: #### L [id number] ####Cuff Cutter: LESLEE MARY ([id number])[facility] [place] ([facility])[address] RBC (Bld) [#/Vol] 3.73 10*6/uL Low 4.40-5.90 [facility] Comment on above: Performed By: #### L [id number] ####Cuff Cutter: LESLEE HERNANDEZ ([id number])[facility] [place] ([facility])[address] WBC (Bld) [#/Vol] 5.9 10*3/uL Normal 3.6-10.7 [facility] Comment on above: Performed By: #### L [id number] ####Cuff Cutter: LESLEE HERNANDEZ ([id number])[facility] [place] ([facility])[address] COMPREHENSIVE METABOLIC PANE Ming 07-29-2024 Albumin [Mass/Vol] 2.4 g/dL Low 3.5-5.0 [facility] Comment on above: Performed By: #### L AB103, LAB17, VBZ366 ####Cuff Cutter: LESLEE HERNANDEZ ([id number])[facility]A LELOEFRAÍNN ([facility])[address] ALP [Catalytic activity/Vol] 125 U/L Normal 40-150 [facility] Comment on above: Performed By: #### L AB103, LAB17, DBM449 ####Cuff Cutter: LESLEE HERNANDEZ ([id number])[facility]A LELOREHOBOTH [facility] SERVICESN ([facility])[address] ALT [Catalytic activity/Vol] 36 U/L Normal <40 [facility] Comment on above: Performed By: #### L AB103, LAB17, KPH824 ####Cuff Cutter: LESLEE HERNANDEZ ([id number])[facility] [place] ([facility])[address] Anion gap [Moles/Vol] 8 mmol/L Normal 3-13 [facility] Comment on above: Performed By: #### L AB103, LAB17, ZIP504 ####Cuff Cutter: LESLEE HERNANDEZ ([id number])[facility]A LELOREHOBOTH [facility] SERVICESN ([facility])[address] AST [Catalytic activity/Vol] 22 U/L Normal <34 [facility] Comment on above: Performed By: #### Pedro ABKiera, LAB17, DUQ547 ####Cuff Cutter: LESLEE HERNANDEZ ([id number])[facility] ([facility])[address] Bilirubin [Mass/Vol] 1.2 mg/dL High <1.2 [facility] Comment on above: Performed By: #### Pedro ECHEVERRIA, LAB17, ZJX853 ####Cuff Cutter: LESLEE HERNANDEZ ([id number])[facility] [place] ([facility])[address] Calcium [Mass/Vol] 6.9 mg/dL Low 8.4-10.2 [facility] Comment on above: Performed By: #### Pedro ECHEVERRIA, LAB17, KOX564 ####Cuff Cutter: LESLEE HERNANDEZ ([id number])[facility] [place] ([facility])[address] Chloride [Moles/Vol] 103 mmol/L Normal 98-107 [facility] Comment on above: Performed By: #### Pedro ECHEVERRIA, LAB17, EQY695 ####Cuff Cutter: LESLEE HERNANDEZ ([id number])[facility] [place] ([facility])[address] CO2 [Moles/Vol] 25 mmol/L Normal 22-29 [facility] Comment on above: Performed By: #### Pedro ECHEVERRIA, LAB17, ESC571 ####Cuff Cutter: LESLEE HERNANDEZ ([id number])[facility] [place] ([facility])[address] Creatinine [Mass/Vol] 1.36 mg/dL High 0.72-1.25 [facility] Comment on above: Performed By: #### L JACKI, LAB17, LYW372 ####Cuff Cutter: LESLEE HERNANDEZ ([id number])[facility] [place] ([facility])[address] GLOMERULAR FILTRATION RATE ML/MIN/1.73 SQ M.PREDICTED 65.0 mL/min/1.73m*2 Normal >60.0 [facility] Comment on above: Result Comment: Calc ulation based on the Chronic Kidney Disease Epidemiology Collaboration (CKD-EPI) equation refit without adjustment for race Performed By: #### L AB103, LAB17, USY093 ####Cuff Cutter: LESLEE HERNANDEZ ([id number])[facility] ([facility])[address] Glucose [Mass/Vol] 103 mg/dL High 74-100 [facility] Comment on above: Performed By: #### L ABKiera, LAB17, IZV155 ####Cuff Cutter: LESLEE HERNANDEZ ([id number])[facility] (SBHLAB)[address] Potassium [Moles/Vol] 3.3 mmol/L Low 3.5-5.1 [facility] Comment on above: Result Comment: [facility] potassium values may be up to 0.5 mmol/L lower than serum values. Performed By: #### Pedro ECHEVERRIA, LAB17, [id number] ####Cuff Cutter: LESLEE HERNANDEZ ([id number])[facility] (SBHLAB)[address] Protein [Mass/Vol] 5.2 g/dL Low 6.4-8.3 [facility] Comment on above: Performed By: #### Pedro ECHEVERRIA, LAB17, [id number] ####Cuff Cutter: LESLEE HERNANDEZ ([phone])[facility] (SBHLAB)[address] [place] [address] [place] Sodium [Moles/Vol] 136 mmol/L Normal 136-145 [facility] Comment on above: Performed By: #### L JACKI, LAB17, [id number] ####Cuff Cutter: LESLEE HERNANDEZ ([phone])[facility] (SBHLAB)[address] Urea nitrogen [Mass/Vol] 28 mg/dL High 8-21 [facility] Comment on above: Performed By: #### L AB103, LAB17, JUR761 ####Cuff Cutter: LESLEE HERNANDEZ ([id number])[facility] [place] (SBHLAB)[address] [place] [address] Comprehensive metabolic 1998 panelon 07-29-2024 Albumin [Mass/Vol] 2.4 g/dL Low 3.5 - 5.0 g/dL [facility] ALP [Catalytic activity/Vol] 125 U/L 40 - 150 U/L [facility] ALT [Catalytic activity/Vol] 36 U/L NINF - 40 U/L [facility] Anion gap [Moles/Vol] 8 mmol/L 3 - 13 mmol/L [facility] AST [Catalytic activity/Vol] 22 U/L NINF - 34 U/L [facility] Bilirubin [Mass/Vol] 1.2 mg/dL High NINF - 1.2 mg/dL [facility] Calcium [Mass/Vol] 6.9 mg/dL Low 8.4 - 10. 2 mg/dL [facility] Chloride [Moles/Vol] 103 mmol/L 98 - 10 7 mmol/L [facility] CO2 [Moles/Vol] 25 mmol/L 22 - 29 mmol/L [facility] Creatinine [Mass/Vol] 1.36 mg/dL High 0.72 - 1.25 mg/dL [facility] GFR/1.73 sq M.predicted (S/P/Bld) [Vol rate/Area] 65 mL/min - PINF [facility] Comment on above: Calculation based on the Chronic Kidney Disease Epidemiology Collaboration (CKD-EPI) equation refit without adjustment for race Glucose [Mass/Vol] 103 mg/dL High 74 - 100 mg/dL [facility] Interpretation and review of laboratory results Abnormal [facility] Potassium [Moles/Vol] 3.3 mmol/L Low 3.5 - 5.1 mmol/L [facility] Comment on above: Plasma potassium heidi ues may be up to 0.5 mmol/L lower than serum values. Protein [Mass/Vol] 5.2 g/dL Low 6.4 - 8.3 g/dL [facility] Sodium [Moles/Vol] 136 mmol/L 136 - 145 mmol/L [facility] Urea nitrogen [Mass/Vol] 28 mg/dL High 8 - 21 mg/dL [facility] - Chemistry and C hemistry - challengeon 07-29-2024 Magnesium [Mass/Vol] 1.4 mg/dL Low 1.6 - 2 .6 mg/dL [facility] MAGNESIUMon 07-29-2024 Magnesium [Mass/Vol] 1.4 mg/dL Low 1.6-2.6 [facility] Comment on above: Result Comment: MOHANE R COMMENTS:Higher values can be expected in females during menses. Performed By: #### L AB103, LAB17, [id number] ####Cuff Cutter: LESLEE HERNANDEZ ([phone])[facility] (SBHLAB)[address] Magnesium [Mass/Vol]on 07-29 Interpretation and review of laboratory results Abnormal [facility] Higher values can be expected in females during menses. [facility] NT PRO BNPon 07-29-2024 Natriuretic peptide B (Bld) [Mass/Vol] 55758 pg/mL High <125 [facility] Comment on above: Performed By: #### L AB103, LAB17, [id number] ####Cuff Cutter: LESLEE HERNANDEZ ([id number])[facility] (SBHLAB)[address] [place] [address] Natriuretic peptide B [Mass/ Vol]on 07-29-2024 Interpretation and review of laboratory results Abnormal [facility] Natriuretic peptide B (Bld) [Mass/Vol] 03785 pg/mL High NINF - 125 pg/mL [facility] Nursing Noteon 07-29-2024 Nursing Note Nursing went to give IV Magnesium and patient refused. Notified Lilibeth Anguiano APRN. Normal [facility] Progress Noteon 07-29-2024 Progress Note Normal [facility] Progress Note Normal [facility] Progress Note Normal [facility] 30on 07-28-2024 30 Normal [facility] 30 Normal [facility] CBC W Auto Differential pane l (Bld)on 07-28-2024 Basophils (Bld) [#/Vol] 0 10*3/uL 0.0 - 0.2 10*3/uL [facility] Basophils/100 WBC (Bld) 0.4 % 0.0 - 2.0 % [facility] Eosinophils (Bld) [#/Vol] 0.1 10*3/uL 0.0 - 0.5 10*3/uL [facility] Eosinophils/100 WBC (Bld) 1.8 % 0.0 - 6.0 % [facility] Erythrocyte distribution width (RBC) [Ratio] 13.2 % 11.5 - 15.0 % [facility] Hematocrit (Bld) [Volume fraction] 44.8 % 40.0 - 52.0 % [facility] Hemoglobin (Bld) [Mass/Vol] 14.3 g/dL 13.0 - 18.0 g/dL [facility] Immature granulocytes (Bld) [#/Vol] 0 10*3/uL NINF - 0.1 10*3/uL [facility] Immature granulocytes/100 WBC (Bld) 0.2 % 0.0 - 2.0 % [facility] Interpretation and review of laboratory results Abnormal [facility] Lymphocytes (Bld) [#/Vol] 2.2 10*3/uL 1.0 - 4.3 10*3/uL [facility] Lymphocytes/100 WBC (Bld) 38.7 % 15.0 - 45.0 % [facility] MCH (RBC) [Entitic mass] 33 pg 26.0 - 34.0 pg [facility] MCHC (RBC) [Mass/Vol] 31.9 % 30.5 - 36.0 % [facility] MCV (RBC) [Entitic vol] 103.5 fL High 77.0 - 99.0 fL [facility] Monocytes (Bld) [#/Vol] 0.5 10*3/uL 0.0 - 0.9 10*3/uL [facility] Monocytes/100 WBC (Bld) 9.7 % 5.0 - 13.0 % [facility] Neutrophils (Bld) [#/Vol] 2.8 10*3/uL 1.8 - 7.5 10*3/uL [facility] Neutrophils/100 WBC (Bld) 49.2 % 38.0 - 82.0 % [facility] Nucleated RBC/100 WBC (Bld) [Ratio] 0 % [facility] Platelet mean volume (Bld) [Entitic vol] 9 fL 9.0 - 12.7 fL [facility] Platelets (Bld) [#/Vol] 225 10*3/uL 140 - 440 10*3/uL [facility] RBC (Bld) [#/Vol] 4.33 10*6/uL Low 4.40 - 5.9 0 10*6/uL [facility] WBC (Bld) [#/Vol] 5.6 10*3/uL 3.6 - 10.7 10*3/uL [facility] CBC WITH AUTO DIFFERENTIALon 07-28-2024 Basophils (Bld) [#/Vol] 0.0 10*3/uL Normal 0.0-0.2 [facility] Comment on above: Performed By: #### L [id number] ####Cuff Cutter: LESLEE HERNANDEZ ([id number])[facility] [place] [address] Basophils/100 WBC (Bld) 0.4 % Normal 0.0-2.0 [facility] Comment on above: Performed By: #### L [id number] ####Cuff Cutter: LESLEE HERNANDEZ ([phone])[facility] [place] [address] Eosinophils (Bld) [#/Vol] 0.1 10*3/uL Normal 0.0-0.5 [facility] Comment on above: Performed By: #### L [id number] ####Cuff Cutter: LESLEE HERNANDEZ ([id number])[facility] Eosinophils/100 WBC (Bld) 1.8 % Normal 0.0-6.0 [facility] Comment on above: Performed By: #### L [id number] ####Cuff Cutter: LESLEE HERNANDEZ ([id number])[facility] [place] [address] Erythrocyte distribution width (RBC) [Ratio] 13.2 % Normal 11.5-15.0 [facility] Comment on above: Performed By: #### L [id number] ####Cuff Cutter: LESLEE MARY ([id number])[facility] [place] (SBHLAB)[address] [place] [address] Hematocrit (Bld) [Volume fraction] 44.8 % Normal 40.0-52.0 [facility] Comment on above: Performed By: #### L [id number] ####Cuff Cutter: LESLEE MARY ([phone])[facility] (SBHLAB)[address] Hemoglobin (Bld) [Mass/Vol] 14.3 g/dL Normal 13.0-18.0 [facility] Comment on above: Performed By: #### L [id number] ####Cuff Cutter: LESLEE HERNANDEZ ([id number])[facility] (SBAB)[address] [place] [address] IMMATURE GRANS % 0.2 % Normal 0.0-2.0 [facility] Comment on above: Performed By: #### L [id number] ####Cuff Cutter: LESLEE MARY ([id number])[facility] (SBAB)[address] [place] [address] IMMATURE GRANS ABSOLUTE 0.0 10*3/uL Normal <0.1 [facility] Comment on above: Performed By: #### L [id number] ####Cuff Cutter: LESLEE TURKTYRONE ([id number])[facility] (SBHLAB)[address] Lymphocytes (Bld) [#/Vol] 2.2 10*3/uL Normal 1.0-4.3 [facility] Comment on above: Performed By: #### L [id number] ####Cuff Cutter: LESLEE TURKTYRONE ([phone])[facility] (SBHLAB)[address] [place] [address] Lymphocytes/100 WBC (Bld) 38.7 % Normal 15.0-45.0 [facility] Comment on above: Performed By: #### L [id number] ####Cuff Cutter: LESLEEFIDELIA HERNANDEZ ([phone])[facility] [place] (SBHLAB)[address] MCH (RBC) [Entitic mass] 33.0 pg Normal 26.0-34.0 [facility] Comment on above: Performed By: #### L [id number] ####Cuff Cutter: LESLEE MARY ([id number])[facility] (SBHLAB)[address] MCHC 31.9 % Normal 30.5-36.0 [facility] Comment on above: Performed By: #### L [id number] ####Cuff Cutter: LESLEE MARY ([phone])[facility] (SBHLAB)[address] MCV (RBC) [Entitic vol] 103.5 fL High 77.0-99.0 [facility] Comment on above: Performed By: #### L [id number] ####Cuff Cutter: LESLEE MARY ([id number])[facility] (SBHLAB)[address] Monocytes (Bld) [#/Vol] 0.5 10*3/uL Normal 0.0-0.9 [facility] Comment on above: Performed By: #### L [id number] ####Cuff Cutter: LESLEE TURKTYRONE ([phone])[facility] (SBHLAB)[address] Monocytes/100 WBC (Bld) 9.7 % Normal 5.0-13.0 [facility] Comment on above: Performed By: #### L [id number] ####Cuff Cutter: LESLEE TURKTYRONE ([id number])[facility] (SBHLAB)[address] NEUTROPHILS ABSOLUTE 2.8 10*3/uL Normal 1.8-7.5 [facility] Comment on above: Performed By: #### L [id number] ####Cuff Cutter: LESLEE MCNEILLNinoskaTYRONE ([phone])[facility] (SBHLAB)[address] Neutrophils/100 WBC (Bld) 49.2 % Normal 38.0-82.0 [facility] Comment on above: Performed By: #### L [id number] ####Cuff Cutter: LESLEE MARY ([phone])[facility] (SBHLAB)[address] NRBC 0.0 /100 WBCs Normal 0.0-2.0 [facility] Comment on above: Performed By: #### L [id number] ####Cuff Cutter: LESLEE MARY ([id number])[facility] (SBHLAB)[address] Platelet mean volume (Bld) [Entitic vol] 9.0 fL Normal 9.0-12.7 [facility] Comment on above: Performed By: #### L [id number] ####Cuff Cutter: LESLEE MARY ([id number])[facility] (SBHLAB)[address] Platelets (Bld) [#/Vol] 225 10*3/uL Normal 140-440 [facility] Comment on above: Performed By: #### L [id number] ####Cuff Cutter: LESLEE TURKTYRONE ([id number])[facility] (SBHLAB)[address] [place] [address] [place] RBC (Bld) [#/Vol] 4.33 10*6/uL Low 4.40-5.90 [facility] Comment on above: Performed By: #### L [id number] ####Cuff Cutter: LESLEE TURKTYRONE ([phone])[facility] (SBHLAB)[address] WBC (Bld) [#/Vol] 5.6 10*3/uL Normal 3.6-10.7 [facility] Comment on above: Performed By: #### L [id number] ####Cuff Cutter: LESLEE MCNEILLNinoskaTYRONE ([id number])[facility] (SBHLAB)[address] COMPREHENSIVE METABOLIC PANE Ming 07-28-2024 Albumin [Mass/Vol] 3.1 g/dL Low 3.5-5.0 [facility] Comment on above: Performed By: #### L AB103, NVN401, LAB17 ####Cuff Cutter: LESLEE HERNANDEZ ([phone])[facility] [place] (SBHLAB)[address] ALP [Catalytic activity/Vol] 153 U/L High 40-150 [facility] Comment on above: Performed By: #### L AB103, SLM436, LAB17 ####Cuff Cutter: LESLEE MCNEILLRAMON ([id number])[facility] ([facility]AB)[address] ALT [Catalytic activity/Vol] 49 U/L High <40 [facility] Comment on above: Performed By: #### L AB103, HQB294, LAB17 ####Cuff Cutter: LESLEE HERNANDEZ ([id number])[facility] (SB[facility]AB)[address] Anion gap [Moles/Vol] 10 mmol/L Normal 3-13 [facility] Comment on above: Performed By: #### L AB103, PDF636, LAB17 ####Cuff Cutter: LESLEE HERNANDEZ ([id number])[facility] (SBHLAB)[address] AST [Catalytic activity/Vol] 26 U/L Normal <34 [facility] Comment on above: Performed By: #### L AB103, NEQ550, LAB17 ####Cuff Cutter: LESLEE HERNANDEZ ([phone])[facility] (SBHLAB)[address] Bilirubin [Mass/Vol] 1.6 mg/dL High <1.2 [facility] Comment on above: Performed By: #### L AB103, JMG480, LAB17 ####Cuff Cutter: LESLEE HERNANDEZ ([phone])[facility] [place] (SBHLAB)[address] Calcium [Mass/Vol] 8.3 mg/dL Low 8.4-10.2 [facility] Comment on above: Performed By: #### L AB103, CXH561, LAB17 ####Cuff Cutter: LESLEE HERNANDEZ ([id number])[facility] [place] (SBHLAB)[address] Chloride [Moles/Vol] 99 mmol/L Normal 98-107 [facility] Comment on above: Performed By: #### L AB103, GFX036, LAB17 ####Cuff Cutter: LESLEE HERNANDEZ ([id number])[facility] [place] (SBHLAB)[address] CO2 [Moles/Vol] 31 mmol/L High 22-29 [facility] Comment on above: Performed By: #### L AB103, STH160, LAB17 ####Cuff Cutter: LESLEE HERNANDEZ ([id number])[facility] [place] (SBHLAB)[address] Creatinine [Mass/Vol] 1.66 mg/dL High 0.72-1.25 [facility] Comment on above: Performed By: #### L AB103, HAC499, LAB17 ####Cuff Cutter: LESLEE HERNANDEZ ([id number])[facility] [place] (SBHLAB)[address] GLOMERULAR FILTRATION RATE ML/MIN/1.73 SQ M.PREDICTED 51.2 mL/min/1.73m*2 Low >60.0 [facility] Comment on above: Result Comment: Calc ulation based on the Chronic Kidney Disease Epidemiology Collaboration (CKD-EPI) equation refit without adjustment for race Performed By: #### L AB103, BIG642, LAB17 ####Cuff Cutter: LESLEE HERNANDEZ ([id number])[facility] (SBHLAB)[address] Glucose [Mass/Vol] 97 mg/dL Normal 74-100 [facility] Comment on above: Performed By: #### L AB103, TMZ449, LAB17 ####Cuff Cutter: LESLEE HERNANDEZ ([id number])[facility] (SBHLAB)[address] Potassium [Moles/Vol] 3.5 mmol/L Normal 3.5-5.1 [facility] Comment on above: Result Comment: [facility] potassium values may be up to 0.5 mmol/L lower than serum values. Performed By: #### L AB103, VJH887, LAB17 ####Cuff Cutter: LESLEE HERNANDEZ ([id number])[facility] (SBHLAB)[address] Protein [Mass/Vol] 6.1 g/dL Low 6.4-8.3 [facility] Comment on above: Performed By: #### L AB103, PYO161, LAB17 ####Cuff Cutter: LESLEE HERNANDEZ ([id number])[facility] (HLAB)[address] Sodium [Moles/Vol] 140 mmol/L Normal 136-145 [facility] Comment on above: Performed By: #### L AB103, JUT155, LAB17 ####Cuff Cutter: LESLEE HERNANDEZ ([id number])[facility] (SBHLAB)[address] Urea nitrogen [Mass/Vol] 29 mg/dL High 8-21 [facility] Comment on above: Performed By: #### L AB103, WIG602, LAB17 ####Cuff Cutter: LESLEE HERNANDEZ ([id number])[facility] (SBHLAB)[address] Comprehensive metabolic 1998 panelon 07-28-2024 Albumin [Mass/Vol] 3.1 g/dL Low 3.5 - 5.0 g/dL [facility] ALP [Catalytic activity/Vol] 153 U/L High 40 - 150 U/L [facility] ALT [Catalytic activity/Vol] 49 U/L High NINF - 40 U/L [facility] Anion gap [Moles/Vol] 10 mmol/L 3 - 13 mmol/L [facility] AST [Catalytic activity/Vol] 26 U/L NINF - 34 U/L [facility] Bilirubin [Mass/Vol] 1.6 mg/dL High NINF - 1.2 mg/dL [facility] Calcium [Mass/Vol] 8.3 mg/dL Low 8.4 - 10. 2 mg/dL [facility] Chloride [Moles/Vol] 99 mmol/L 98 - 10 7 mmol/L [facility] CO2 [Moles/Vol] 31 mmol/L High 22 - 29 mmol/L [facility] Creatinine [Mass/Vol] 1.66 mg/dL High 0.72 - 1.25 mg/dL [facility] GFR/1.73 sq M.predicted (S/P/Bld) [Vol rate/Area] 51.2 mL/min Low - PINF [facility] Comment on above: Calculation based on the Chronic Kidney Disease Epidemiology Collaboration (CKD-EPI) equation refit without adjustment for race Glucose [Mass/Vol] 97 mg/dL 74 - 100 mg/dL [facility] Interpretation and review of laboratory results Abnormal [facility] Potassium [Moles/Vol] 3.5 mmol/L 3.5 - 5.1 mmol/L [facility] Comment on above: Plasma potassium heidi ues may be up to 0.5 mmol/L lower than serum values. Protein [Mass/Vol] 6.1 g/dL Low 6.4 - 8.3 g/dL [facility] Sodium [Moles/Vol] 140 mmol/L 136 - 145 mmol/L [facility] Urea nitrogen [Mass/Vol] 29 mg/dL High 8 - 21 mg/dL [facility] - Chemistry and C hemistry - challengeon 07-28-2024 Magnesium [Mass/Vol] 1.5 mg/dL Low 1.6 - 2 .6 mg/dL [facility] MAGNESIUMon 07-28-2024 Magnesium [Mass/Vol] 1.5 mg/dL Low 1.6-2.6 [facility] Comment on above: Result Comment: ALEJANDRO Tatum COMMENTS:Higher values can be expected in females during menses. Performed By: #### L AB103, [id number], LAB17 ####Cuff Cutter: LESLEE HERNANDEZ ([phone])[facility] Magnesium [Mass/Vol]on 07-28 Interpretation and review of laboratory results Abnormal [facility] Higher values can be expected in females during menses. [facility] Medical Studenton 07-28-2024 Medical Student Normal [facility] NT PRO BNPon 07-28-2024 Natriuretic peptide B (Bld) [Mass/Vol] 75534 pg/mL High <125 [facility] Comment on above: Performed By: #### L AB103, QMN193, LAB17 ####Cuff Cutter: LESLEE HERNANDEZ ([id number])[facility])[address] [place] [address] Natriuretic peptide B [Mass/ Vol]on 07-28-2024 Interpretation and review of laboratory results Abnormal [facility] Natriuretic peptide B (Bld) [Mass/Vol] 07777 pg/mL High NINF - 125 pg/mL [facility] Progress Noteon 07-28-2024 Progress Note Normal [facility] Progress Note Normal [facility] 30on 07-27-2024 30 Normal [facility] [id number] 07-27-2024 [id number] Normal [facility] CBC W Auto Differential pane l (Bld)on 07-27-2024 Basophils (Bld) [#/Vol] 0 10*3/uL 0.0 - 0.2 10*3/uL [facility] Basophils/100 WBC (Bld) 0.4 % 0.0 - 2.0 % [facility] Eosinophils (Bld) [#/Vol] 0.1 10*3/uL 0.0 - 0.5 10*3/uL [facility] Eosinophils/100 WBC (Bld) 1.4 % 0.0 - 6.0 % [facility] Erythrocyte distribution width (RBC) [Ratio] 13.3 % 11.5 - 15.0 % [facility] Hematocrit (Bld) [Volume fraction] 42.4 % 40.0 - 52.0 % [facility] Hemoglobin (Bld) [Mass/Vol] 13.8 g/dL 13.0 - 18.0 g/dL [facility] Immature granulocytes (Bld) [#/Vol] 0 10*3/uL NINF - 0.1 10*3/uL [facility] Immature granulocytes/100 WBC (Bld) 0.4 % 0.0 - 2.0 % [facility] Interpretation and review of laboratory results Abnormal [facility] Lymphocytes (Bld) [#/Vol] 1.8 10*3/uL 1.0 - 4.3 10*3/uL [facility] Lymphocytes/100 WBC (Bld) 31.2 % 15.0 - 45.0 % [facility] MCH (RBC) [Entitic mass] 33.2 pg 26.0 - 34.0 pg [facility] MCHC (RBC) [Mass/Vol] 32.5 % 30.5 - 36.0 % [facility] MCV (RBC) [Entitic vol] 101.9 fL High 77.0 - 99.0 fL [facility] Monocytes (Bld) [#/Vol] 0.5 10*3/uL 0.0 - 0.9 10*3/uL [facility] Monocytes/100 WBC (Bld) 9.4 % 5.0 - 13.0 % [facility] Neutrophils (Bld) [#/Vol] 3.2 10*3/uL 1.8 - 7.5 10*3/uL [facility] Neutrophils/100 WBC (Bld) 57.2 % 38.0 - 82.0 % [facility] Nucleated RBC/100 WBC (Bld) [Ratio] 0 % [facility] Platelet mean volume (Bld) [Entitic vol] 9.2 fL 9.0 - 12.7 fL [facility] Platelets (Bld) [#/Vol] 241 10*3/uL 140 - 440 10*3/uL [facility] RBC (Bld) [#/Vol] 4.16 10*6/uL Low 4.40 - 5.9 0 10*6/uL [facility] WBC (Bld) [#/Vol] 5.7 10*3/uL 3.6 - 10.7 10*3/uL [facility] CBC WITH AUTO DIFFERENTIALon 07-27-2024 Basophils (Bld) [#/Vol] 0.0 10*3/uL Normal 0.0-0.2 [facility] Comment on above: Performed By: #### L [id number] ####Cuff Cutter: LESLEE HERNANDEZ ([id number])[facility] ([facility])[address] Basophils/100 WBC (Bld) 0.4 % Normal 0.0-2.0 [facility] Comment on above: Performed By: #### L [id number] ####Cuff Cutter: LESLEE HERNANDEZ ([id number])[facility] [place] ([facility])[address] Eosinophils (Bld) [#/Vol] 0.1 10*3/uL Normal 0.0-0.5 [facility] Comment on above: Performed By: #### L [id number] ####Cuff Cutter: LESLEE HERNANDEZ ([id number])[facility] [place] ([facility])[address] Eosinophils/100 WBC (Bld) 1.4 % Normal 0.0-6.0 [facility] Comment on above: Performed By: #### L [id number] ####Cuff Cutter: LESLEE HERNANDEZ ([id number])[facility] [place] ([facility])[address] Erythrocyte distribution width (RBC) [Ratio] 13.3 % Normal 11.5-15.0 [facility] Comment on above: Performed By: #### L [id number] ####Cuff Cutter: LESLEE HERNANDEZ ([id number])[facility] [place] ([facility])[address] Hematocrit (Bld) [Volume fraction] 42.4 % Normal 40.0-52.0 [facility] Comment on above: Performed By: #### L [id number] ####Cuff Cutter: LESLEE HERNANDEZ ([id number])[facility] [place] ([facility])[address] Hemoglobin (Bld) [Mass/Vol] 13.8 g/dL Normal 13.0-18.0 [facility] Comment on above: Performed By: #### L [id number] ####Cuff Cutter: LESLEE HERNANDEZ ([id number])[facility] (SBHLAB)[address] IMMATURE GRANS % 0.4 % Normal 0.0-2.0 [facility] Comment on above: Performed By: #### L [id number] ####Cuff Cutter: LESLEE HERNANDEZ ([id number])[facility] (SBHLAB)[address] IMMATURE GRANS ABSOLUTE 0.0 10*3/uL Normal <0.1 [facility] Comment on above: Performed By: #### L [id number] ####Cuff Cutter: LESLEE HERNANDEZ ([id number])[facility] (SBHLAB)[address] [place] [address] Lymphocytes (Bld) [#/Vol] 1.8 10*3/uL Normal 1.0-4.3 [facility] Comment on above: Performed By: #### L [id number] ####Cuff Cutter: LESLEE HERNANDEZ ([id number])[facility] (SBHLAB)[address] [place] [address] Lymphocytes/100 WBC (Bld) 31.2 % Normal 15.0-45.0 [facility] Comment on above: Performed By: #### L [id number] ####Cuff Cutter: LESLEE HERNANDEZ ([id number])[facility] ([facility])[address] MCH (RBC) [Entitic mass] 33.2 pg Normal 26.0-34.0 [facility] Comment on above: Performed By: #### L [id number] ####Cuff Cutter: LESLEE HERNANDEZ ([id number])[facility] (SBHLAB)[address] MCHC 32.5 % Normal 30.5-36.0 [facility] Comment on above: Performed By: #### L [id number] ####Cuff Cutter: LESLEE TURKTYRONE ([id number])[facility] (SBHLAB)[address] MCV (RBC) [Entitic vol] 101.9 fL High 77.0-99.0 [facility] Comment on above: Performed By: #### L [id number] ####Cuff Cutter: LESLEE HERNANDEZ ([id number])[facility] [place] (SBHLAB)[address] Monocytes (Bld) [#/Vol] 0.5 10*3/uL Normal 0.0-0.9 [facility] Comment on above: Performed By: #### L [id number] ####Cuff Cutter: LESLEE HERNANDEZ ([id number])[facility] [place] (SBHLAB)[address] Monocytes/100 WBC (Bld) 9.4 % Normal 5.0-13.0 [facility] Comment on above: Performed By: #### L [id number] ####Cuff Cutter: LESLEE HERNANDEZ ([id number])[facility] [place] (SBHLAB)[address] NEUTROPHILS ABSOLUTE 3.2 10*3/uL Normal 1.8-7.5 [facility] Comment on above: Performed By: #### L [id number] ####Cuff Cutter: LESLEE HERNANDEZ ([id number])[facility] [place] (SBHLAB)[address] Neutrophils/100 WBC (Bld) 57.2 % Normal 38.0-82.0 [facility] Comment on above: Performed By: #### L [id number] ####Cuff Cutter: LESLEE HERNANDEZ ([id number])[facility] [place] (SBHLAB)[address] NRBC 0.0 /100 WBCs Normal 0.0-2.0 [facility] Comment on above: Performed By: #### L [id number] ####Cuff Cutter: LESLEE HERNANDEZ ([id number])[facility] [place] (SBHLAB)[address] Platelet mean volume (Bld) [Entitic vol] 9.2 fL Normal 9.0-12.7 [facility] Comment on above: Performed By: #### L [id number] ####Cuff Cutter: LESLEE HERNANDEZ ([id number])[facility] [place] (SBHLAB)[address] Platelets (Bld) [#/Vol] 241 10*3/uL Normal 140-440 [facility] Comment on above: Performed By: #### L [id number] ####Cuff Cutter: LESLEE HERNANDEZ ([id number])[facility] [place] (SBHLAB)[address] RBC (Bld) [#/Vol] 4.16 10*6/uL Low 4.40-5.90 [facility] Comment on above: Performed By: #### L [id number] ####Cuff Cutter: LESLEE HERNANDEZ ([id number])[facility]BREHOB[facility] M[facility] SERVICESN (SBHLAB)[address] WBC (Bld) [#/Vol] 5.7 10*3/uL Normal 3.6-10.7 [facility] Comment on above: Performed By: #### L [id number] ####Cuff Cutter: LESLEE HERNANDEZ ([phone])[facility] [place] (SBHLAB)[address] COMPREHENSIVE METABOLIC PANE Ming 07-27-2024 Albumin [Mass/Vol] 3.1 g/dL Low 3.5-5.0 [facility] Comment on above: Performed By: #### L AB17, [id number] ####Cuff Cutter: LESLEE HERNANDEZ ([id number])[facility] (SBHLAB)[address] ALP [Catalytic activity/Vol] 175 U/L High 40-150 [facility] Comment on above: Performed By: #### L AB17, [id number] ####Cuff Cutter: LESLEE HERNANDEZ ([phone])[facility] [place] (SBHLAB)[address] [place] [address] [place] ALT [Catalytic activity/Vol] 60 U/L High <40 [facility] Comment on above: Performed By: #### L AB17, [id number] ####Cuff Cutter: LESLEE TURKTYRONE ([id number])[facility] [place] (SBHLAB)[address] Anion gap [Moles/Vol] 14 mmol/L High 3-13 [facility] Comment on above: Performed By: #### L AB17, [id number] ####Cuff Cutter: LESLEE HERNANDEZ ([id number])[facility] [place] (SBHLAB)[address] AST [Catalytic activity/Vol] 31 U/L Normal <34 [facility] Comment on above: Performed By: #### L AB17, [id number] ####Cuff Cutter: LESLEE TURKTYRONE ([id number])[facility] [place] (SBHLAB)[address] Bilirubin [Mass/Vol] 1.3 mg/dL High <1.2 [facility] Comment on above: Performed By: #### L AB17, ILC040 ####Cuff Cutter: LESLEE HERNANDEZ ([id number])[facility] [place] (SBHLAB)[address] [place] [address] [place] Calcium [Mass/Vol] 8.4 mg/dL Normal 8.4-10.2 [facility] Comment on above: Performed By: #### L AB17, MRH146 ####Cuff Cutter: LESLEE HERNANDEZ ([id number])[facility] [place] (SBHLAB)[address] Chloride [Moles/Vol] 102 mmol/L Normal 98-107 [facility] Comment on above: Performed By: #### L AB17, [id number] ####Cuff Cutter: LESLEE HERNANDEZ ([id number])[facility] (SBHLAB)[address] CO2 [Moles/Vol] 24 mmol/L Normal 22-29 [facility] Comment on above: Performed By: #### L AB17, [id number] ####Cuff Cutter: LESLEE HERNANDEZ ([id number])[facility] (SBHLAB)[address] Creatinine [Mass/Vol] 1.84 mg/dL High 0.72-1.25 [facility] Comment on above: Performed By: #### L AB17, IUG145 ####Cuff Cutter: LESLEE HERNANDEZ ([id number])[facility] (SBHLAB)[address] [place] [address] GLOMERULAR FILTRATION RATE ML/MIN/1.73 SQ M.PREDICTED 45.2 mL/min/1.73m*2 Low >60.0 [facility] Comment on above: Result Comment: Calc ulation based on the Chronic Kidney Disease Epidemiology Collaboration (CKD-EPI) equation refit without adjustment for race Performed By: #### L AB17, [id number] ####Cuff Cutter: LESLEE HERNANDEZ ([id number])[facility] (SBHLAB)[address] [place] [address] Glucose [Mass/Vol] 95 mg/dL Normal 74-100 [facility] Comment on above: Performed By: #### L AB17, TUB330 ####Cuff Cutter: LESLEE HERNANDEZ ([id number])[facility] (SBHLAB)[address] [place] [address] Potassium [Moles/Vol] 3.6 mmol/L Normal 3.5-5.1 [facility] Comment on above: Result Comment: [facility] potassium values may be up to 0.5 mmol/L lower than serum values. Performed By: #### L AB17, [id number] ####Cuff Cutter: LESLEE MCNEILLRAMON ([phone])[facility] (SBHLAB)[address] Protein [Mass/Vol] 6.3 g/dL Low 6.4-8.3 [facility] Comment on above: Performed By: #### L AB17, [id number] ####Cuff Cutter: LESLEE MCNEILLSAGETYRONE ([id number])[facility] (SBHLAB)[address] Sodium [Moles/Vol] 140 mmol/L Normal 136-145 [facility] Comment on above: Performed By: #### L AB17, [id number] ####Cuff Cutter: LESLEE MCNEILLRAMON ([id number])[facility] (SBHLAB)[address] Urea nitrogen [Mass/Vol] 35 mg/dL High 8-21 [facility] Comment on above: Performed By: #### L AB17, [id number] ####Cuff Cutter: LESLEE MCNEILLRAMON ([id number])[facility] ([facility])[address] Comprehensive metabolic 1998 panelon 07-27-2024 Albumin [Mass/Vol] 3.1 g/dL Low 3.5 - 5.0 g/dL [facility] ALP [Catalytic activity/Vol] 175 U/L High 40 - 150 U/L [facility] ALT [Catalytic activity/Vol] 60 U/L High NINF - 40 U/L [facility] Anion gap [Moles/Vol] 14 mmol/L High 3 - 13 mmol/L [facility] AST [Catalytic activity/Vol] 31 U/L NINF - 34 U/L [facility] Bilirubin [Mass/Vol] 1.3 mg/dL High NINF - 1.2 mg/dL [facility] Calcium [Mass/Vol] 8.4 mg/dL 8.4 - 10. 2 mg/dL [facility] Chloride [Moles/Vol] 102 mmol/L 98 - 10 7 mmol/L [facility] CO2 [Moles/Vol] 24 mmol/L 22 - 29 mmol/L [facility] Creatinine [Mass/Vol] 1.84 mg/dL High 0.72 - 1.25 mg/dL [facility] GFR/1.73 sq M.predicted (S/P/Bld) [Vol rate/Area] 45.2 mL/min Low - PINF [facility] Comment on above: Calculation based on the Chronic Kidney Disease Epidemiology Collaboration (CKD-EPI) equation refit without adjustment for race Glucose [Mass/Vol] 95 mg/dL 74 - 100 mg/dL [facility] Interpretation and review of laboratory results Abnormal [facility] Potassium [Moles/Vol] 3.6 mmol/L 3.5 - 5.1 mmol/L [facility] Comment on above: Plasma potassium heidi ues may be up to 0.5 mmol/L lower than serum values. Protein [Mass/Vol] 6.3 g/dL Low 6.4 - 8.3 g/dL [facility] Sodium [Moles/Vol] 140 mmol/L 136 - 145 mmol/L [facility] Urea nitrogen [Mass/Vol] 35 mg/dL High 8 - 21 mg/dL [facility] Medical Studenton 07-27-2024 Medical Student Normal [facility] NT PRO BNPon 07-27-2024 Natriuretic peptide B (Bld) [Mass/Vol] 89999 pg/mL High <125 [facility] Comment on above: Performed By: #### L AB17, [id number] ####Cuff Cutter: LESLEE HERNANDEZ ([id number])[facility])[address] [place] [address] Natriuretic peptide B [Mass/ Vol]on 07-27-2024 Interpretation and review of laboratory results Abnormal [facility] Natriuretic peptide B (Bld) [Mass/Vol] 50671 pg/mL High NINF - 125 pg/mL [facility] Progress Noteon 07-27-2024 Progress Note Normal [facility] Progress Note Normal [facility] Progress Note Normal [facility] [id number] 07-26-2024 [id number] Normal [facility] 30on 07-26-2024 30 Normal [facility] 30 Normal [facility] CBC W Auto Differential pane l (Bld)on 07-26-2024 Basophils (Bld) [#/Vol] 0 10*3/uL 0.0 - 0.2 10*3/uL [facility] Basophils/100 WBC (Bld) 0.4 % 0.0 - 2.0 % [facility] Eosinophils (Bld) [#/Vol] 0.1 10*3/uL 0.0 - 0.5 10*3/uL [facility] Eosinophils/100 WBC (Bld) 1.5 % 0.0 - 6.0 % [facility] Erythrocyte distribution width (RBC) [Ratio] 13.4 % 11.5 - 15.0 % [facility] Hematocrit (Bld) [Volume fraction] 43 % 40.0 - 52.0 % [facility] Hemoglobin (Bld) [Mass/Vol] 14.1 g/dL 13.0 - 18.0 g/dL [facility] Immature granulocytes (Bld) [#/Vol] 0 10*3/uL NINF - 0.1 10*3/uL [facility] Immature granulocytes/100 WBC (Bld) 0.2 % 0.0 - 2.0 % [facility] Interpretation and review of laboratory results Abnormal [facility] Lymphocytes (Bld) [#/Vol] 1.8 10*3/uL 1.0 - 4.3 10*3/uL [facility] Lymphocytes/100 WBC (Bld) 33 % 15.0 - 45.0 % [facility] MCH (RBC) [Entitic mass] 33.3 pg 26.0 - 34.0 pg [facility] MCHC (RBC) [Mass/Vol] 32.8 % 30.5 - 36.0 % [facility] MCV (RBC) [Entitic vol] 101.4 fL High 77.0 - 99.0 fL [facility] Monocytes (Bld) [#/Vol] 0.4 10*3/uL 0.0 - 0.9 10*3/uL [facility] Monocytes/100 WBC (Bld) 6.9 % 5.0 - 13.0 % [facility] Neutrophils (Bld) [#/Vol] 3.2 10*3/uL 1.8 - 7.5 10*3/uL [facility] Neutrophils/100 WBC (Bld) 58 % 38.0 - 82.0 % [facility] Nucleated RBC/100 WBC (Bld) [Ratio] 0 % [facility] Platelet mean volume (Bld) [Entitic vol] 9.6 fL 9.0 - 12.7 fL [facility] Platelets (Bld) [#/Vol] 240 10*3/uL 140 - 440 10*3/uL [facility] RBC (Bld) [#/Vol] 4.24 10*6/uL Low 4.40 - 5.9 0 10*6/uL [facility] WBC (Bld) [#/Vol] 5.5 10*3/uL 3.6 - 10.7 10*3/uL [facility] CBC WITH AUTO DIFFERENTIALon 07-26-2024 Basophils (Bld) [#/Vol] 0.0 10*3/uL Normal 0.0-0.2 [facility] Comment on above: Performed By: #### L [id number] ####Cuff Cutter: LESLEE HERNANDEZ ([id number])[facility] ([facility])[address] [place] [address] Basophils/100 WBC (Bld) 0.4 % Normal 0.0-2.0 [facility] Comment on above: Performed By: #### L [id number] ####Cuff Cutter: LESLEE HERNANDEZ ([id number])[facility] ([facility])[address] [place] [address] Eosinophils (Bld) [#/Vol] 0.1 10*3/uL Normal 0.0-0.5 [facility] Comment on above: Performed By: #### L [id number] ####Cuff Cutter: LESLEE HERNANDEZ ([id number])[facility] [place] (SBHLAB)[address] Eosinophils/100 WBC (Bld) 1.5 % Normal 0.0-6.0 [facility] Comment on above: Performed By: #### L [id number] ####Cuff Cutter: LESLEE HERNANDEZ ([id number])[facility] (SBHLAB)[address] [place] [address] Erythrocyte distribution width (RBC) [Ratio] 13.4 % Normal 11.5-15.0 [facility] Comment on above: Performed By: #### L [id number] ####Cuff Cutter: LESLEE HERNANDEZ ([id number])[facility] Hematocrit (Bld) [Volume fraction] 43.0 % Normal 40.0-52.0 [facility] Comment on above: Performed By: #### L [id number] ####Cuff Cutter: LESLEE HERNANDEZ ([id number])[facility] ([facility])[address] Hemoglobin (Bld) [Mass/Vol] 14.1 g/dL Normal 13.0-18.0 [facility] Comment on above: Performed By: #### L [id number] ####Cuff Cutter: LESLEE HERNANDEZ ([id number])[facility])[address] IMMATURE GRANS % 0.2 % Normal 0.0-2.0 [facility] Comment on above: Performed By: #### L [id number] ####Cuff Cutter: LESLEE HERNANDEZ ([id number])[facility] ([facility])[address] [place] [address] IMMATURE GRANS ABSOLUTE 0.0 10*3/uL Normal <0.1 [facility] Comment on above: Performed By: #### L [id number] ####Cuff Cutter: LESLEE HERNANDEZ ([id number])[facility])[address] Lymphocytes (Bld) [#/Vol] 1.8 10*3/uL Normal 1.0-4.3 [facility] Comment on above: Performed By: #### L [id number] ####Cuff Cutter: LESLEE HERNANDEZ ([id number])[facility] ([facility])[address] [place] [address] [place] Lymphocytes/100 WBC (Bld) 33.0 % Normal 15.0-45.0 [facility] Comment on above: Performed By: #### L [id number] ####Cuff Cutter: LESLEE TURKTYRONE ([id number])[facility] BARBEFRAÍNN (SBHLAB)[address] MCH (RBC) [Entitic mass] 33.3 pg Normal 26.0-34.0 [facility] Comment on above: Performed By: #### L [id number] ####Cuff Cutter: LESLEE MCNEILLRAMON ([id number])[facility] (SB[facility]AB)[address] MCHC 32.8 % Normal 30.5-36.0 [facility] Comment on above: Performed By: #### L [id number] ####Cuff Cutter: LESLEE MCNEILLRAMON ([id number])[facility] (SB[facility])[address] MCV (RBC) [Entitic vol] 101.4 fL High 77.0-99.0 [facility] Comment on above: Performed By: #### L [id number] ####Cuff Cutter: LESLEE TURKTYRONE ([id number])[facility] BARBREHOB[facility]N (SBHLAB)[address] Monocytes (Bld) [#/Vol] 0.4 10*3/uL Normal 0.0-0.9 [facility] Comment on above: Performed By: #### L [id number] ####Cuff Cutter: LESLEE TURKTYRONE ([id number])[facility] [place] (SBHLAB)[address] Monocytes/100 WBC (Bld) 6.9 % Normal 5.0-13.0 [facility] Comment on above: Performed By: #### L [id number] ####Cuff Cutter: LESLEE TURKTYRONE ([id number])[facility] BARBREHOB[facility]N (SBHLAB)[address] NEUTROPHILS ABSOLUTE 3.2 10*3/uL Normal 1.8-7.5 [facility] Comment on above: Performed By: #### L [id number] ####Cuff Cutter: LESLEE HERNANDEZ ([id number])[facility] [place] (SBHLAB)[address] Neutrophils/100 WBC (Bld) 58.0 % Normal 38.0-82.0 [facility] Comment on above: Performed By: #### L [id number] ####Cuff Cutter: LESLEE HERNANDEZ ([id number])[facility] [place] (SBHLAB)[address] NRBC 0.0 /100 WBCs Normal 0.0-2.0 [facility] Comment on above: Performed By: #### L [id number] ####Cuff Cutter: LESLEE HERNANDEZ ([id number])[facility] [place] (SB[facility])[address] Platelet mean volume (Bld) [Entitic vol] 9.6 fL Normal 9.0-12.7 [facility] Comment on above: Performed By: #### L [id number] ####Cuff Cutter: LESLEE HERNANDEZ ([id number])[facility] [place] (SB[facility])[address] Platelets (Bld) [#/Vol] 240 10*3/uL Normal 140-440 [facility] Comment on above: Performed By: #### L [id number] ####Cuff Cutter: LESLEE HERNANDEZ ([id number])[facility] [place] (SBHL[facility])[address] [place] [address] [place] RBC (Bld) [#/Vol] 4.24 10*6/uL Low 4.40-5.90 [facility] Comment on above: Performed By: #### L [id number] ####Cuff Cutter: LESLEE HERNANDEZ ([id number])[facility] [place] (SB[facility])[address] [place] [address] [place] WBC (Bld) [#/Vol] 5.5 10*3/uL Normal 3.6-10.7 [facility] Comment on above: Performed By: #### L [id number] ####Cuff Cutter: LESLEE HERNANDEZ ([id number])[facility] (SBHLAB)[address] COMPREHENSIVE METABOLIC PANE Ming 07-26-2024 Albumin [Mass/Vol] 2.9 g/dL Low 3.5-5.0 [facility] Comment on above: Performed By: #### L AB17, PUC813, WKY536 ####Cuff Cutter: LESLEE HERNANDEZ ([id number])[facility] [place] ([facility])[address] ALP [Catalytic activity/Vol] 166 U/L High 40-150 [facility] Comment on above: Performed By: #### L AB17, XLY869, RHD988 ####Cuff Cutter: LESLEE HERNANDEZ ([id number])[facility] [place] ([facility])[address] ALT [Catalytic activity/Vol] 57 U/L High <40 [facility] Comment on above: Performed By: #### L AB17, WIZ888, ORF976 ####Cuff Cutter: LESLEE HERNANDEZ ([id number])[facility] [place] ([facility])[address] Anion gap [Moles/Vol] 12 mmol/L Normal 3-13 [facility] Comment on above: Performed By: #### L AB17, [id number], MYA150 ####Cuff Cutter: LESLEE HERNANDEZ ([id number])[facility] [place] ([facility])[address] [place] [address] [place] AST [Catalytic activity/Vol] 27 U/L Normal <34 [facility] Comment on above: Performed By: #### L AB17, FBV114, PQS003 ####Cuff Cutter: LESLEE HERNANDEZ ([id number])[facility] [place] ([facility])[address] Bilirubin [Mass/Vol] 1.4 mg/dL High <1.2 [facility] Comment on above: Performed By: #### L AB17, SGY582, FER966 ####Cuff Cutter: LESLEE HERNANEDZ ([id number])[facility]ILL[facility]on MCFADDENMarguerite (SBHLAB)[address] Calcium [Mass/Vol] 8.5 mg/dL Normal 8.4-10.2 [facility] Comment on above: Performed By: #### L AB17, DWF045, DZD927 ####Cuff Cutter: LESLEE HERNANDEZ ([id number])[facility]on [place] (SBHLAB)[address] Chloride [Moles/Vol] 103 mmol/L Normal 98-107 [facility] Comment on above: Performed By: #### L AB17, DSZ809, HAF488 ####Cuff Cutter: LESLEE HERNANDEZ ([id number])[facility]ITAL[facility] (SBHLAB)[address] CO2 [Moles/Vol] 23 mmol/L Normal 22-29 [facility] Comment on above: Performed By: #### L AB17, RIR179, ORE213 ####Cuff Cutter: LESLEE HERNANDEZ ([id number])[facility] (SBAB)[address] Creatinine [Mass/Vol] 2.14 mg/dL High 0.72-1.25 [facility] Comment on above: Performed By: #### L AB17, FQZ299, UPB844 ####Cuff Cutter: LESLEE HERNANDEZ ([id number])[facility] (SBHLAB)[address] GLOMERULAR FILTRATION RATE ML/MIN/1.73 SQ M.PREDICTED 37.7 mL/min/1.73m*2 Low >60.0 [facility] Comment on above: Result Comment: Calc ulation based on the Chronic Kidney Disease Epidemiology Collaboration (CKD-EPI) equation refit without adjustment for race Performed By: #### L AB17, [id number], [id number] ####Cuff Cutter: LESLEE HERNANDEZ ([id number])[facility] [place] (SBHLAB)[address] Glucose [Mass/Vol] 114 mg/dL High 74-100 [facility] Comment on above: Performed By: #### L AB17, [id number], [id number] ####Cuff Cutter: LESLEE HERNANDEZ ([id number])[facility] ([facility])[address] Potassium [Moles/Vol] 3.4 mmol/L Low 3.5-5.1 [facility] Comment on above: Result Comment: [facility] potassium values may be up to 0.5 mmol/L lower than serum values. Performed By: #### L AB17, [id number], [id number] ####Cuff Cutter: LESLEE HERNANDEZ ([id number])[facility] (SBHL[facility])[address] Protein [Mass/Vol] 5.9 g/dL Low 6.4-8.3 [facility] Comment on above: Performed By: #### L AB17, [id number], [id number] ####Cuff Cutter: LESLEE HERNANDEZ ([id number])[facility] (SBHLAB)[address] Sodium [Moles/Vol] 138 mmol/L Normal 136-145 [facility] Comment on above: Performed By: #### L AB17, [id number], [id number] ####Cuff Cutter: LESLEE HERNANDEZ ([id number])[facility] ([facility])[address] Urea nitrogen [Mass/Vol] 40 mg/dL High 8-21 [facility] Comment on above: Performed By: #### L AB17, [id number], [id number] ####Cuff Cutter: LESLEE HERNANDEZ ([phone])[facility] (SBHLAB)[address] Comprehensive metabolic 1998 panelon 07-26-2024 Albumin [Mass/Vol] 2.9 g/dL Low 3.5 - 5.0 g/dL [facility] ALP [Catalytic activity/Vol] 166 U/L High 40 - 150 U/L [facility] ALT [Catalytic activity/Vol] 57 U/L High NINF - 40 U/L [facility] Anion gap [Moles/Vol] 12 mmol/L 3 - 13 mmol/L [facility] AST [Catalytic activity/Vol] 27 U/L NINF - 34 U/L [facility] Bilirubin [Mass/Vol] 1.4 mg/dL High NINF - 1.2 mg/dL [facility] [facility] Calcium [Mass/Vol] 8.5 mg/dL 8.4 - 10. 2 mg/dL [facility] Chloride [Moles/Vol] 103 mmol/L 98 - 10 7 mmol/L [facility] CO2 [Moles/Vol] 23 mmol/L 22 - 29 mmol/L [facility] Creatinine [Mass/Vol] 2.14 mg/dL High 0.72 - 1.25 mg/dL [facility] GFR/1.73 sq M.predicted (S/P/Bld) [Vol rate/Area] 37.7 mL/min Low - PINF [facility] Comment on above: Calculation based on the Chronic Kidney Disease Epidemiology Collaboration (CKD-EPI) equation refit without adjustment for race Glucose [Mass/Vol] 114 mg/dL High 74 - 100 mg/dL [facility] Interpretation and review of laboratory results Abnormal [facility] Potassium [Moles/Vol] 3.4 mmol/L Low 3.5 - 5.1 mmol/L [facility] Comment on above: Plasma potassium heidi ues may be up to 0.5 mmol/L lower than serum values. Protein [Mass/Vol] 5.9 g/dL Low 6.4 - 8.3 g/dL [facility] Sodium [Moles/Vol] 138 mmol/L 136 - 145 mmol/L [facility] Urea nitrogen [Mass/Vol] 40 mg/dL High 8 - 21 mg/dL [facility] Consulton 07-26-2024 Consult Normal [facility] Laboratory - Chemistry and C hemistry - challengeon 07-26-2024 Magnesium [Mass/Vol] 1.8 mg/dL 1.6 - 2 .6 mg/dL [facility] MAGNESIUMon 07-26-2024 Magnesium [Mass/Vol] 1.8 mg/dL Normal 1.6-2.6 [facility] Comment on above: Result Comment: ALEJANDRO Tatum COMMENTS:Higher values can be expected in females during menses. Performed By: #### L AB17, ONC527, [id number] ####Cuff Cutter: LESLEE HERNANDEZ ([id number])[facility] ([facility])[address] Magnesium [Mass/Vol]on 07-26 Interpretation and review of laboratory results Normal [facility] Higher values can be expected in females during menses. [facility] Medical Studenton 07-26-2024 Medical Student Normal [facility] NT PRO BNPon 07-26-2024 Natriuretic peptide B (Bld) [Mass/Vol] 61854 pg/mL High <125 [facility] Comment on above: Performed By: #### L AB17, [id number], [id number] ####Cuff Cutter: LESLEE HERNANDEZ ([id number])[facility] (SBHLAB)[address] [place] [address] Natriuretic peptide B [Mass/ Vol]on 07-26-2024 Interpretation and review of laboratory results Abnormal [facility] Natriuretic peptide B (Bld) [Mass/Vol] 76541 pg/mL High NINF - 125 pg/mL [facility] Nursing Noteon 07-26-2024 Nursing Note Pt refusing carvedilol and potassium at this time, states he doesn't take meds until 2099. Medication moved to 2099. Normal [facility] Nursing Note Normal [facility] Nursing Note Normal [facility] Nursing Note Attempted to draw la b but patient refused at this time.informed the provider.Electronical ly signed by Osiris Huber RN Normal [facility] Progress Noteon 07-26-2024 Progress Note Normal [facility] Progress Note Normal [facility] [id number] 07-25-2024 [id number] Normal [facility] Consulton 07-25-2024 Consult Normal [facility] Nursing Noteon 07-25-2024 Nursing Note Attempted to draw la b but patient is refusing to draw lab.Informed the doctor. Normal [facility] Progress Noteon 07-25-2024 Progress Note Normal [facility] Progress Note Normal [facility] Progress Note Normal [facility] Progress Note Nutrition rescreen complete. Pt assigned a level one for nutrition care. Normal [facility] 30on 07-24-2024 30 Normal [facility] 30 Normal [facility] BASIC METABOLIC PANELon 07-01 Anion gap [Moles/Vol] 10 mmol/L Normal 3-13 [facility] Comment on above: Performed By: #### L AB15, AXY119, [id number] ####Cuff Cutter: LESLEE HERNANDEZ ([id number])[facility] (SB[facility])[address] Calcium [Mass/Vol] 8.5 mg/dL Normal 8.4-10.2 [facility] Comment on above: Performed By: #### L AB15, CSE077, ZMG722 ####Cuff Cutter: LESLEE HERNANDEZ ([id number])[facility] (SBHLAB)[address] Chloride [Moles/Vol] 108 mmol/L High 98-107 [facility] Comment on above: Performed By: #### L AB15, XNT612, [id number] ####Cuff Cutter: LESLEE HERNANDEZ ([id number])[facility] (SB[facility])[address] CO2 [Moles/Vol] 20 mmol/L Low 22-29 [facility] Comment on above: Performed By: #### L AB15, YDA317, NJL891 ####Cuff Cutter: LESLEE HERNANDEZ ([id number])[facility] ([facility])[address] Creatinine [Mass/Vol] 2.19 mg/dL High 0.72-1.25 [facility] Comment on above: Performed By: #### L AB15, FLC456, QBV780 ####Cuff Cutter: LESLEE HERNANDEZ ([id number])[facility] ([facility])[address] [place] [address] [place] GLOMERULAR FILTRATION RATE ML/MIN/1.73 SQ M.PREDICTED 36.7 mL/min/1.73m*2 Low >60.0 [facility] Comment on above: Result Comment: Calc ulation based on the Chronic Kidney Disease Epidemiology Collaboration (CKD-EPI) equation refit without adjustment for race Performed By: #### L AB15, IHI313, BOA619 ####Cuff Cutter: LESLEE HERNANDEZ ([id number])[facility] ([facility])[address] Glucose [Mass/Vol] 108 mg/dL High 74-100 [facility] Comment on above: Performed By: #### L AB15, QXK212, FQQ995 ####Cuff Cutter: LESLEE HERNANDEZ ([id number])[facility] Potassium [Moles/Vol] 4.3 mmol/L Normal 3.5-5.1 [facility] Comment on above: Result Comment: [facility] potassium values may be up to 0.5 mmol/L lower than serum values. Performed By: #### L AB15, WCT460, DSR474 ####Cuff Cutter: LESLEE HERNANDEZ ([id number])[facility] [place] [address] [place] Sodium [Moles/Vol] 138 mmol/L Normal 136-145 [facility] Comment on above: Performed By: #### L AB15, HHV015, SSV807 ####Cuff Cutter: LESLEE HERNANDEZ ([id number])[facility] ([facility])[address] Urea nitrogen [Mass/Vol] 38 mg/dL High 8-21 [facility] Comment on above: Performed By: #### L AB15, WLZ374, HFM141 ####Cuff Cutter: LESLEE HERNANDEZ ([id number])[facility] (SB[facility])[address] Anion gap [Moles/Vol] 12 mmol/L Normal 3-13 [facility] Comment on above: Performed By: #### L AB15, WGM191 ####Cuff Cutter: LESLEE HERNANDEZ ([id number])[facility] ([facility])[address] Calcium [Mass/Vol] 8.3 mg/dL Low 8.4-10.2 [facility] Comment on above: Performed By: #### L AB15, QIS333 ####Cuff Cutter: LESLEE HERNANDEZ ([id number])[facility] [place] ([facility])[address] Chloride [Moles/Vol] 107 mmol/L Normal 98-107 [facility] Comment on above: Performed By: #### L AB15, [id number] ####Cuff Cutter: LESLEE HERNANDEZ ([id number])[facility] [place] ([facility])[address] CO2 [Moles/Vol] 19 mmol/L Low 22-29 [facility] Comment on above: Performed By: #### L AB15, EOR419 ####Cuff Cutter: LESLEE HERNANDEZ ([id number])[facility] [place] ([facility])[address] Creatinine [Mass/Vol] 1.98 mg/dL High 0.72-1.25 [facility] Comment on above: Performed By: #### L AB15, MRH639 ####Cuff Cutter: LESLEE HERNANDEZ ([id number])[facility] [place] ([facility])[address] [place] [address] [place] GLOMERULAR FILTRATION RATE ML/MIN/1.73 SQ M.PREDICTED 41.4 mL/min/1.73m*2 Low >60.0 [facility] Comment on above: Result Comment: Calc ulation based on the Chronic Kidney Disease Epidemiology Collaboration (CKD-EPI) equation refit without adjustment for race Performed By: #### L AB15, USG897 ####Cuff Cutter: LESLEE HERNANDEZ ([id number])[facility] ([facility])[address] Glucose [Mass/Vol] 107 mg/dL High 74-100 [facility] Comment on above: Performed By: #### L AB15, UKL465 ####Cuff Cutter: LESLEE HERNANDEZ ([id number])[facility] ([facility])[address] Potassium [Moles/Vol] 4.4 mmol/L Normal 3.5-5.1 [facility] Comment on above: Result Comment: [facility] potassium values may be up to 0.5 mmol/L lower than serum values. Performed By: #### L AB15, [id number] ####Cuff Cutter: LESLEE HERNANDEZ ([id number])[facility] ([facility])[address] Sodium [Moles/Vol] 138 mmol/L Normal 136-145 [facility] Comment on above: Performed By: #### L AB15, LSE094 ####Cuff Cutter: LESLEE HERNANDEZ ([id number])[facility] ([facility])[address] Urea nitrogen [Mass/Vol] 37 mg/dL High 8-21 [facility] Comment on above: Performed By: #### L AB15, [id number] ####Cuff Cutter: LESLEE HERNANDEZ ([id number])[facility] ([facility])[address] Basic metabolic 1998 panelon 07-24-2024 Anion gap [Moles/Vol] 10 mmol/L 3 - 13 mmol/L [facility] Calcium [Mass/Vol] 8.5 mg/dL 8.4 - 10. 2 mg/dL [facility] Chloride [Moles/Vol] 108 mmol/L High 98 - 10 7 mmol/L [facility] CO2 [Moles/Vol] 20 mmol/L Low 22 - 29 mmol/L [facility] Creatinine [Mass/Vol] 2.19 mg/dL High 0.72 - 1.25 mg/dL [facility] GFR/1.73 sq M.predicted (S/P/Bld) [Vol rate/Area] 36.7 mL/min Low - PINF [facility] Comment on above: Calculation based on the Chronic Kidney Disease Epidemiology Collaboration (CKD-EPI) equation refit without adjustment for race Glucose [Mass/Vol] 108 mg/dL High 74 - 100 mg/dL [facility] Interpretation and review of laboratory results Abnormal [facility] Potassium [Moles/Vol] 4.3 mmol/L 3.5 - 5.1 mmol/L [facility] Comment on above: Plasma potassium heidi ues may be up to 0.5 mmol/L lower than serum values. Sodium [Moles/Vol] 138 mmol/L 136 - 145 mmol/L [facility] Urea nitrogen [Mass/Vol] 38 mg/dL High 8 - 21 mg/dL [facility] Anion gap [Moles/Vol] 12 mmol/L 3 - 13 mmol/L [facility] Calcium [Mass/Vol] 8.3 mg/dL Low 8.4 - 10. 2 mg/dL [facility] Chloride [Moles/Vol] 107 mmol/L 98 - 10 7 mmol/L [facility] CO2 [Moles/Vol] 19 mmol/L Low 22 - 29 mmol/L [facility] Creatinine [Mass/Vol] 1.98 mg/dL High 0.72 - 1.25 mg/dL [facility] GFR/1.73 sq M.predicted (S/P/Bld) [Vol rate/Area] 41.4 mL/min Low - PINF [facility] Comment on above: Calculation based on the Chronic Kidney Disease Epidemiology Collaboration (CKD-EPI) equation refit without adjustment for race Glucose [Mass/Vol] 107 mg/dL High 74 - 100 mg/dL [facility] Interpretation and review of laboratory results Abnormal [facility] Potassium [Moles/Vol] 4.4 mmol/L 3.5 - 5.1 mmol/L [facility] Comment on above: Plasma potassium heidi ues may be up to 0.5 mmol/L lower than serum values. Sodium [Moles/Vol] 138 mmol/L 136 - 145 mmol/L [facility] Urea nitrogen [Mass/Vol] 37 mg/dL High 8 - 21 mg/dL [facility] CBC W Auto Differential pane l (Bld)on 07-24-2024 Basophils (Bld) [#/Vol] 0 10*3/uL 0.0 - 0.2 10*3/uL [facility] Basophils/100 WBC (Bld) 0.5 % 0.0 - 2.0 % [facility] Eosinophils (Bld) [#/Vol] 0 10*3/uL 0.0 - 0.5 10*3/uL [facility] Eosinophils/100 WBC (Bld) 0.5 % 0.0 - 6.0 % [facility] Erythrocyte distribution width (RBC) [Ratio] 13.9 % 11.5 - 15.0 % [facility] Hematocrit (Bld) [Volume fraction] 45 % 40.0 - 52.0 % [facility] Hemoglobin (Bld) [Mass/Vol] 14.4 g/dL 13.0 - 18.0 g/dL [facility] Immature granulocytes (Bld) [#/Vol] 0 10*3/uL NINF - 0.1 10*3/uL [facility] Immature granulocytes/100 WBC (Bld) 0.1 % 0.0 - 2.0 % [facility] Interpretation and review of laboratory results Abnormal [facility] Lymphocytes (Bld) [#/Vol] 2.5 10*3/uL 1.0 - 4.3 10*3/uL [facility] Lymphocytes/100 WBC (Bld) 33.2 % 15.0 - 45.0 % [facility] MCH (RBC) [Entitic mass] 33.2 pg 26.0 - 34.0 pg [facility] MCHC (RBC) [Mass/Vol] 32 % 30.5 - 36.0 % [facility] MCV (RBC) [Entitic vol] 103.7 fL High 77.0 - 99.0 fL [facility] Monocytes (Bld) [#/Vol] 0.5 10*3/uL 0.0 - 0.9 10*3/uL [facility] Monocytes/100 WBC (Bld) 7.3 % 5.0 - 13.0 % [facility] Neutrophils (Bld) [#/Vol] 4.3 10*3/uL 1.8 - 7.5 10*3/uL [facility] Neutrophils/100 WBC (Bld) 58.4 % 38.0 - 82.0 % [facility] Nucleated RBC/100 WBC (Bld) [Ratio] 0 % [facility] Platelet mean volume (Bld) [Entitic vol] 9.6 fL 9.0 - 12.7 fL [facility] Platelets (Bld) [#/Vol] 225 10*3/uL 140 - 440 10*3/uL [facility] RBC (Bld) [#/Vol] 4.34 10*6/uL Low 4.40 - 5.9 0 10*6/uL [facility] WBC (Bld) [#/Vol] 7.4 10*3/uL 3.6 - 10.7 10*3/uL [facility] CBC WITH AUTO DIFFERENTIALon 07-24-2024 Basophils (Bld) [#/Vol] 0.0 10*3/uL Normal 0.0-0.2 [facility] Comment on above: Performed By: #### L [id number] ####Cuff Cutter: LESLEE HERNANDEZ ([id number])[facility] [place] ([facility])[address] Basophils/100 WBC (Bld) 0.5 % Normal 0.0-2.0 [facility] Comment on above: Performed By: #### L [id number] ####Cuff Cutter: LESLEE HERNANDEZ ([id number])[facility] [place] ([facility])[address] Eosinophils (Bld) [#/Vol] 0.0 10*3/uL Normal 0.0-0.5 [facility] Comment on above: Performed By: #### L [id number] ####Cuff Cutter: LESLEE HERNANDEZ ([id number])[facility] [place] ([facility])[address] [place] [address] [place] Eosinophils/100 WBC (Bld) 0.5 % Normal 0.0-6.0 [facility] Comment on above: Performed By: #### L [id number] ####Cuff Cutter: LESLEE HERNANDEZ ([id number])[facility] [place] ([facility])[address] Erythrocyte distribution width (RBC) [Ratio] 13.9 % Normal 11.5-15.0 [facility] Comment on above: Performed By: #### L [id number] ####Cuff Cutter: LESLEE HERNANDEZ ([id number])[facility] ([facility])[address] Hematocrit (Bld) [Volume fraction] 45.0 % Normal 40.0-52.0 [facility] Comment on above: Performed By: #### L [id number] ####Cuff Cutter: LESLEE HERNANDEZ ([id number])[facility] Hemoglobin (Bld) [Mass/Vol] 14.4 g/dL Normal 13.0-18.0 [facility] Comment on above: Performed By: #### L [id number] ####Cuff Cutter: LESLEE HERNANDEZ ([id number])[facility] IMMATURE GRANS % 0.1 % Normal 0.0-2.0 [facility] Comment on above: Performed By: #### L [id number] ####Cuff Cutter: LESLEE HERNANDEZ ([id number])[facility] ([facility])[address] IMMATURE GRANS ABSOLUTE 0.0 10*3/uL Normal <0.1 [facility] Comment on above: Performed By: #### L [id number] ####Cuff Cutter: LESLEE HERNANDEZ ([id number])[facility] ([facility])[address] Lymphocytes (Bld) [#/Vol] 2.5 10*3/uL Normal 1.0-4.3 [facility] Comment on above: Performed By: #### L [id number] ####Cuff Cutter: LESLEE HERNANDEZ ([id number])[facility] ([facility])[address] Lymphocytes/100 WBC (Bld) 33.2 % Normal 15.0-45.0 [facility] Comment on above: Performed By: #### L [id number] ####Cuff Cutter: LESLEE HERNANDEZ ([id number])[facility] ([facility])[address] MCH (RBC) [Entitic mass] 33.2 pg Normal 26.0-34.0 [facility] Comment on above: Performed By: #### L [id number] ####Cuff Cutter: LESLEE HERNANDEZ ([id number])[facility] ([facility])[address] MCHC 32.0 % Normal 30.5-36.0 [facility] Comment on above: Performed By: #### L [id number] ####Cuff Cutter: LESLEE HERNANDEZ ([id number])[facility] ([facility])[address] MCV (RBC) [Entitic vol] 103.7 fL High 77.0-99.0 [facility] Comment on above: Performed By: #### L [id number] ####Cuff Cutter: LESLEE HERNANDEZ ([id number])[facility] (SBHLAB)[address] [place] [address] Monocytes (Bld) [#/Vol] 0.5 10*3/uL Normal 0.0-0.9 [facility] Comment on above: Performed By: #### L [id number] ####Cuff Cutter: LESLEE HERNANDEZ ([id number])[facility] (SB[facility])[address] Monocytes/100 WBC (Bld) 7.3 % Normal 5.0-13.0 [facility] Comment on above: Performed By: #### L [id number] ####Cuff Cutter: LESLEE HERNANDEZ ([id number])[facility] (SBHLAB)[address] NEUTROPHILS ABSOLUTE 4.3 10*3/uL Normal 1.8-7.5 [facility] Comment on above: Performed By: #### L [id number] ####Cuff Cutter: LESLEE HERNANDEZ ([id number])[facility] [place] ([facility])[address] Neutrophils/100 WBC (Bld) 58.4 % Normal 38.0-82.0 [facility] Comment on above: Performed By: #### L [id number] ####Cuff Cutter: LESLEE HERNANDEZ ([id number])[facility] [place] ([facility])[address] NRBC 0.0 /100 WBCs Normal 0.0-2.0 [facility] Comment on above: Performed By: #### L [id number] ####Cuff Cutter: LESLEE HERNANDEZ ([id number])[facility] [place] ([facility])[address] Platelet mean volume (Bld) [Entitic vol] 9.6 fL Normal 9.0-12.7 [facility] Comment on above: Performed By: #### L [id number] ####Cuff Cutter: LESLEE HERNANDEZ ([id number])[facility] [place] ([facility])[address] [place] [address] [place] Platelets (Bld) [#/Vol] 225 10*3/uL Normal 140-440 [facility] Comment on above: Performed By: #### L [id number] ####Cuff Cutter: LESLEE HERNANDEZ ([id number])[facility] [place] ([facility])[address] [place] [address] [place] RBC (Bld) [#/Vol] 4.34 10*6/uL Low 4.40-5.90 [facility] Comment on above: Performed By: #### L [id number] ####Cuff Cutter: LESLEE HERNANDEZ ([id number])[facility] [place] ([facility])[address] [place] [address] [place] WBC (Bld) [#/Vol] 7.4 10*3/uL Normal 3.6-10.7 [facility] Comment on above: Performed By: #### L [id number] ####Cuff Cutter: LESLEE HERNANDEZ ([id number])[facility] Consulton 07-24-2024 Consult Normal [facility] Laboratory - Chemistry and C hemistry - challengeon 07-24-2024 Magnesium [Mass/Vol] 2.1 mg/dL 1.6 - 2 .6 mg/dL [facility] Magnesium [Mass/Vol] 2 mg/dL 1.6 - 2 .6 mg/dL [facility] TSH Qn 3.18 m[IU]/L [facility] MAGNESIUMon 07-24-2024 Magnesium [Mass/Vol] 2.1 mg/dL Normal 1.6-2.6 [facility] Comment on above: Result Comment: ALEJANDRO Tatum COMMENTS:Higher values can be expected in females during menses. Performed By: #### L AB15, [id number], [id number] ####Cuff Cutter: LESLEE HERNANDEZ ([id number])[facility] ([facility])[address] Magnesium [Mass/Vol] 2.0 mg/dL Normal 1.6-2.6 [facility] Comment on above: Result Comment: ALEJANDRO Tatum COMMENTS:Higher values can be expected in females during menses. Performed By: #### L AB15, [id number] ####Cuff Cutter: LESLEE HERNANDEZ ([id number])[facility] ([facility])[address] Magnesium [Mass/Vol]on 07-24 Interpretation and review of laboratory results Normal [facility] Higher values can be expected in females during menses. [facility] Interpretation and review of laboratory results Normal [facility] Higher values can be expected in females during menses. [facility] NT PRO BNPon 07-24-2024 Natriuretic peptide B (Bld) [Mass/Vol] 58835 pg/mL High <125 [facility] Comment on above: Performed By: #### L AB15, ZTQ655, [id number] ####Cuff Cutter: LESLEE HERNANDEZ ([id number])[facility] ([facility])[address] Natriuretic peptide B [Mass/ Vol]on 07-24-2024 Interpretation and review of laboratory results Abnormal [facility] Natriuretic peptide B (Bld) [Mass/Vol] 27581 pg/mL High NINF - 125 pg/mL [facility] No Panel Informationon 07-24 [facility] 2h Troponin HS (Serial 2nd Troponin) 30 ng/L NINF - 35 ng/L [facility] Interpretation and review of laboratory results Normal [facility] Progress Noteon 07-24-2024 Progress Note Normal [facility] TSH Qnon 07-24-2024 Interpretation and review of laboratory results Normal [facility] 36on 07-23-2024 36 Pt is now scheduled to be seen in the [facility] CHF clinic next week 07/28/2024 at 9:30 am. I left another message asking that he hold Entresto until seen in the CHF clinic and continue lasix. Normal [facility] 36 LM for pt that they are seeing Dr Astudillo on 07/28/2024 @ 9:30a [facility] 36 Patient will need scheduled for a Follow up with heart failure clinic FAYE per Yulissa. Please call patient to schedule. Normal [facility] 36 Normal [facility] BASIC METABOLIC PANELon 07-01 Anion gap [Moles/Vol] 15 mmol/L High 3-13 [facility] Comment on above: Performed By: #### L AB106, LAB15, [id number] ####Cuff Cutter: LESLEE HERNANDEZ ([id number])[facility] ([facility])[address] Calcium [Mass/Vol] 9.1 mg/dL Normal 8.4-10.2 [facility] Comment on above: Performed By: #### L AB106, LAB15, [id number] ####Cuff Cutter: LESLEE HERNANDEZ ([id number])[facility] [place] ([facility])[address] [place] [address] [place] Chloride [Moles/Vol] 106 mmol/L Normal 98-107 [facility] Comment on above: Performed By: #### Pedro ANN, LAB15, [id number] ####Cuff Cutter: LESLEE HERNANDEZ ([id number])[facility] [place] ([facility])[address] [place] [address] [place] CO2 [Moles/Vol] 19 mmol/L Low 22-29 [facility] Comment on above: Performed By: #### Pedro ANN, LAB15, [id number] ####Cuff Cutter: LESLEE HERNANDEZ ([id number])[facility] ([facility])[address] Creatinine [Mass/Vol] 2.24 mg/dL High 0.72-1.25 [facility] Comment on above: Performed By: #### Pedro ANN, LAB15, [id number] ####Cuff Cutter: LESLEE HERNANDEZ ([id number])[facility] ([facility])[address] GLOMERULAR FILTRATION RATE ML/MIN/1.73 SQ M.PREDICTED 35.7 mL/min/1.73m*2 Low >60.0 [facility] Comment on above: Result Comment: Calc ulation based on the Chronic Kidney Disease Epidemiology Collaboration (CKD-EPI) equation refit without adjustment for race Performed By: #### Pedro ANN, LAB15, [id number] ####Cuff Cutter: LESLEE HERNANDEZ ([id number])[facility]HILLKey[facility] KNOTTRE[facility]OTH [facility] ([facility])[address] [place] [address] [place] Glucose [Mass/Vol] 102 mg/dL High 74-100 [facility] Comment on above: Performed By: #### Pedro [id number], LAB15, [id number] ####Cuff Cutter: LESLEE HERNANDEZ ([id number])[facility] LELOREHOBOTH [facility] (SB[facility])[address] [place] [address] [place] Potassium [Moles/Vol] 4.6 mmol/L Normal 3.5-5.1 [facility] Comment on above: Result Comment: [facility] potassium values may be up to 0.5 mmol/L lower than serum values. Performed By: #### L AB106, LAB15, [id number] ####Cuff Cutter: LESLEE HERNANDEZ ([id number])[facility] (SBHLAB)[address] Sodium [Moles/Vol] 140 mmol/L Normal 136-145 [facility] Comment on above: Performed By: #### L AB106, LAB15, [id number] ####Cuff Cutter: LESLEE HERNANDEZ ([id number])[facility] (SBHLAB)[address] Urea nitrogen [Mass/Vol] 37 mg/dL High 8-21 [facility] Comment on above: Performed By: #### L AB106, LAB15, [id number] ####Cuff Cutter: LESLEE HERNANDEZ ([id number])[facility] (SBHLAB)[address] [place] [address] Basic metabolic 1998 panelon 07-23-2024 Anion gap [Moles/Vol] 15 mmol/L High 3 - 13 mmol/L [facility] Calcium [Mass/Vol] 9.1 mg/dL 8.4 - 10. 2 mg/dL [facility] Chloride [Moles/Vol] 106 mmol/L 98 - 10 7 mmol/L [facility] CO2 [Moles/Vol] 19 mmol/L Low 22 - 29 mmol/L [facility] Creatinine [Mass/Vol] 2.24 mg/dL High 0.72 - 1.25 mg/dL [facility] GFR/1.73 sq M.predicted (S/P/Bld) [Vol rate/Area] 35.7 mL/min Low - PINF [facility] Comment on above: Calculation based on the Chronic Kidney Disease Epidemiology Collaboration (CKD-EPI) equation refit without adjustment for race Glucose [Mass/Vol] 102 mg/dL High 74 - 100 mg/dL [facility] Interpretation and review of laboratory results Abnormal [facility] Potassium [Moles/Vol] 4.6 mmol/L 3.5 - 5.1 mmol/L [facility] Comment on above: Plasma potassium heidi ues may be up to 0.5 mmol/L lower than serum values. Sodium [Moles/Vol] 140 mmol/L 136 - 145 mmol/L [facility] Urea nitrogen [Mass/Vol] 37 mg/dL High 8 - 21 mg/dL [facility] CBC W Auto Differential pane l (Bld)on 07-23-2024 Basophils (Bld) [#/Vol] 0 10*3/uL 0.0 - 0.2 10*3/uL [facility] Basophils/100 WBC (Bld) 0.1 % 0.0 - 2.0 % [facility] Eosinophils (Bld) [#/Vol] 0 10*3/uL 0.0 - 0.5 10*3/uL [facility] Eosinophils/100 WBC (Bld) 0.1 % 0.0 - 6.0 % [facility] Erythrocyte distribution width (RBC) [Ratio] 13.8 % 11.5 - 15.0 % [facility] Hematocrit (Bld) [Volume fraction] 46.5 % 40.0 - 52.0 % [facility] Hemoglobin (Bld) [Mass/Vol] 15.2 g/dL 13.0 - 18.0 g/dL [facility] Immature granulocytes (Bld) [#/Vol] 0 10*3/uL NINF - 0.1 10*3/uL [facility] Immature granulocytes/100 WBC (Bld) 0.3 % 0.0 - 2.0 % [facility] Interpretation and review of laboratory results Abnormal [facility] Lymphocytes (Bld) [#/Vol] 2.1 10*3/uL 1.0 - 4.3 10*3/uL [facility] Lymphocytes/100 WBC (Bld) 23.4 % 15.0 - 45.0 % [facility] MCH (RBC) [Entitic mass] 33.4 pg 26.0 - 34.0 pg [facility] MCHC (RBC) [Mass/Vol] 32.7 % 30.5 - 36.0 % [facility] MCV (RBC) [Entitic vol] 102.2 fL High 77.0 - 99.0 fL [facility] Monocytes (Bld) [#/Vol] 0.8 10*3/uL 0.0 - 0.9 10*3/uL [facility] Monocytes/100 WBC (Bld) 8.6 % 5.0 - 13.0 % [facility] Neutrophils (Bld) [#/Vol] 5.9 10*3/uL 1.8 - 7.5 10*3/uL [facility] Neutrophils/100 WBC (Bld) 67.5 % 38.0 - 82.0 % [facility] Nucleated RBC/100 WBC (Bld) [Ratio] 0 % [facility] Platelet mean volume (Bld) [Entitic vol] 9.5 fL 9.0 - 12.7 fL [facility] Platelets (Bld) [#/Vol] 255 10*3/uL 140 - 440 10*3/uL [facility] RBC (Bld) [#/Vol] 4.55 10*6/uL 4.40 - 5.9 0 10*6/uL [facility] WBC (Bld) [#/Vol] 8.8 10*3/uL 3.6 - 10.7 10*3/uL [facility] CBC WITH AUTO DIFFERENTIALon 07-23-2024 Basophils (Bld) [#/Vol] 0.0 10*3/uL Normal 0.0-0.2 [facility] Comment on above: Performed By: #### L [id number] ####Cuff Cutter: LESLEE HERNANDEZ ([id number])[facility] ([facility])[address] [place] [address] Basophils/100 WBC (Bld) 0.1 % Normal 0.0-2.0 [facility] Comment on above: Performed By: #### L [id number] ####Cuff Cutter: LESLEE HERNANDEZ ([id number])[facility] ([facility])[address] Eosinophils (Bld) [#/Vol] 0.0 10*3/uL Normal 0.0-0.5 [facility] Comment on above: Performed By: #### L [id number] ####Cuff Cutter: LESLEE HERNANDEZ ([id number])[facility] (SBAB)[address] [place] [address] [place] Eosinophils/100 WBC (Bld) 0.1 % Normal 0.0-6.0 [facility] Comment on above: Performed By: #### L [id number] ####Cuff Cutter: LESLEE TURKTYRONE ([id number])[facility] [place] (SBHLAB)[address] Erythrocyte distribution width (RBC) [Ratio] 13.8 % Normal 11.5-15.0 [facility] Comment on above: Performed By: #### L [id number] ####Cuff Cutter: LESLEE MCNEILLRAMON ([id number])[facility] ([facility])[address] Hematocrit (Bld) [Volume fraction] 46.5 % Normal 40.0-52.0 [facility] Comment on above: Performed By: #### L [id number] ####Cuff Cutter: LESLEE TURKTYRONE ([id number])[facility] ([facility])[address] Hemoglobin (Bld) [Mass/Vol] 15.2 g/dL Normal 13.0-18.0 [facility] Comment on above: Performed By: #### L [id number] ####Cuff Cutter: LESLEE HERNANDEZ ([id number])[facility] BARBREHOBOTH [facility] (SBHLAB)[address] IMMATURE GRANS % 0.3 % Normal 0.0-2.0 [facility] Comment on above: Performed By: #### L [id number] ####Cuff Cutter: LESLEE TURKTYRONE ([id number])[facility] BARBREHOBOTH [facility] (SBHLAB)[address] IMMATURE GRANS ABSOLUTE 0.0 10*3/uL Normal <0.1 [facility] Comment on above: Performed By: #### L [id number] ####Cuff Cutter: LESLEE HERNANDEZ ([id number])[facility] [place] (SBHLAB)[address] Lymphocytes (Bld) [#/Vol] 2.1 10*3/uL Normal 1.0-4.3 [facility] Comment on above: Performed By: #### L [id number] ####Cuff Cutter: LESLEEFIDELIA HERNANDEZ ([id number])[facility] (SBHLAB)[address] Lymphocytes/100 WBC (Bld) 23.4 % Normal 15.0-45.0 [facility] Comment on above: Performed By: #### L [id number] ####Cuff Cutter: LESLEEFIDELIA HERNANDEZ ([id number])[facility] [place] (SBHLAB)[address] MCH (RBC) [Entitic mass] 33.4 pg Normal 26.0-34.0 [facility] Comment on above: Performed By: #### L [id number] ####Cuff Cutter: LESLEE MARY ([id number])[facility] [place] (SBHLAB)[address] MCHC 32.7 % Normal 30.5-36.0 [facility] Comment on above: Performed By: #### L [id number] ####Cuff Cutter: LESLEE MARY ([id number])[facility] [place] (SBHLAB)[address] MCV (RBC) [Entitic vol] 102.2 fL High 77.0-99.0 [facility] Comment on above: Performed By: #### L [id number] ####Cuff Cutter: LESLEE MARY ([id number])[facility] [place] (SBHLAB)[address] [place] [address] [place] Monocytes (Bld) [#/Vol] 0.8 10*3/uL Normal 0.0-0.9 [facility] Comment on above: Performed By: #### L [id number] ####Cuff Cutter: LESLEE MARY ([id number])[facility] [place] (SBHLAB)[address] [place] [address] [place] Monocytes/100 WBC (Bld) 8.6 % Normal 5.0-13.0 [facility] Comment on above: Performed By: #### L [id number] ####Cuff Cutter: LESLEE HERNANDEZ ([id number])[facility] [place] (SBHLAB)[address] NEUTROPHILS ABSOLUTE 5.9 10*3/uL Normal 1.8-7.5 [facility] Comment on above: Performed By: #### L [id number] ####Cuff Cutter: LESLEE HERNANDEZ ([id number])[facility] [place] (SBHLAB)[address] Neutrophils/100 WBC (Bld) 67.5 % Normal 38.0-82.0 [facility] Comment on above: Performed By: #### L [id number] ####Cuff Cutter: LESLEE HERNANDEZ ([id number])[facility] [place] (SBHLAB)[address] NRBC 0.0 /100 WBCs Normal 0.0-2.0 [facility] Comment on above: Performed By: #### L [id number] ####Cuff Cutter: LESLEE HERNANDEZ ([id number])[facility] [place] (SBHLAB)[address] Platelet mean volume (Bld) [Entitic vol] 9.5 fL Normal 9.0-12.7 [facility] Comment on above: Performed By: #### L [id number] ####Cuff Cutter: LESLEE HERNANDEZ ([id number])[facility] [place] (SBHLAB)[address] [place] [address] [place] Platelets (Bld) [#/Vol] 255 10*3/uL Normal 140-440 [facility] Comment on above: Performed By: #### L [id number] ####Cuff Cutter: LESLEE HERNANDEZ ([id number])[facility] [place] (SBHLAB)[address] [place] [address] [place] RBC (Bld) [#/Vol] 4.55 10*6/uL Normal 4.40-5.90 [facility] Comment on above: Performed By: #### L [id number] ####Cuff Cutter: LESLEE HERNANDEZ ([id number])[facility] [place] (SBAB)[address] WBC (Bld) [#/Vol] 8.8 10*3/uL Normal 3.6-10.7 [facility] Comment on above: Performed By: #### L [id number] ####Cuff Cutter: LESLEE HERNANDEZ ([id number])[facility] ECG 12-LEADon 07-23-2024 ECG 12-LEAD IMPRESSION: Sinus tachycardia Anterior infarct, old Electronically Signed On 07-23-2024 21:59:14 EST by Bertha Pichardo Normal [facility] ED Nursing Noteon 07-23-2024 ED Nursing Note scanning tech called. Normal [facility] ED Nursing Note Normal [facility] ED Provider Noteon ED Provider Note Normal [facility] HIGH SENSITIVITY TROPONIN, S ERIAL BASELINEon 07-23-2024 TROPONIN HIGH SENSITIVITY BASELINE 33 ng/L Normal <=35 [facility] Comment on above: Performed By: #### L AB106, LAB15, [id number] ####Cuff Cutter: LESLEE HERNANDEZ ([id number])[facility] [place] (SBAB)[address] [place] [address] HIGH SENSITIVITY TROPONIN, S ERIAL, SECOND TESTon 07-23-2024 TROPONIN HS, SERIAL REFLEX, TEST TWO 30 ng/L Normal <=35 [facility] Comment on above: Performed By: #### L [id number], [id number] ####Cuff Cutter: LESLEE HERNANDEZ ([id number])[facility] [place] (SBAB)[address] NT PRO BNPon 07-23-2024 Natriuretic peptide B (Bld) [Mass/Vol] 31548 pg/mL High <125 [facility] Comment on above: Performed By: #### L AB106, LAB15, [id number] ####Cuff Cutter: LESLEE HERNANDEZ ([id number])[facility] [place] ([facility])[address] Natriuretic peptide B [Mass/ Vol]on 07-23-2024 Interpretation and review of laboratory results Abnormal [facility] Natriuretic peptide B (Bld) [Mass/Vol] 53241 pg/mL High NINF - 125 pg/mL [facility] No Panel Informationon 07-23 Interpretation and review of laboratory results Normal [facility] Troponin HS Serial Baseline 33 ng/L NINF - 35 ng/L [facility] P [place] -29 degrees [facility] IN Interval 122 ms [facility] QRS [place] 116 degrees [facility] QRSD Interval 154 ms [facility] QT Interval 369 ms [facility] QTC Interval 520 ms [facility] T Wave [place] -29 degrees [facility] Sinus tachycardia Anterior infarct, old Electronically Signed On 07-23-2024 21:59:14 EST by Bertha Newsome D O - 07/23/2024 IMPRESSION: Sinus tachycardia Anterior infarct, old Electronically Signed On 07-23-2024 21:59:14 EST by Bertha Pichardo [facility] THYROID STIMULATING HORMONEo n 07-23-2024 THYROID STIMULATING HORMONE 3.18 uIU/mL Normal 0.35-4.94 [facility] Comment on above: Performed By: #### L [id number], [id number] ####Cuff Cutter: LESLEE HERNANDEZ ([id number])[facility] [place] (SBAB)[address] [place] [address] Vital signson 07-23-2024 Heart rate 119 /min bpm [facility] XR Chest Single viewon 07-23 Stable cardiomegaly. No acute process. Report Dictated on Electronically Signed By: Juan Pereira MD Electronically Signed Date/Time: 07/23/2024 8:20 PM [facility] Patient Name: CARLO MEDINA : 1980 Exam Date/Time: 07/23/2024 20:07 Procedure: XR CHEST 1 VIEW Ordering Provider: ALVARENGA SAMANTHA Reason For Exam: DYSPNEA EXAM: XR Chest, 1 View CLINICAL INDICATION: DYSPNEA TECHNIQUE: Frontal view of the chest. COMPARISON: July 11, 2024. FINDINGS: LUNGS AND PLEURAL SPACES: Unremarkable. No consolidation. No pneumothorax. HEART: Stable cardiomegaly. MEDIASTINUM: Unremarkable. Normal mediastinal contour. BONES/JOINTS: Unremarkable. No acute fracture. [facility] Juan Pereira MD - 07/23/2024 Patient Name: CARLO MEDINA : 1980 Exam Date/Time: 07/23/2024 20:07 Procedure: XR CHEST 1 VIEW Ordering Provider: ALVARENGA SAMANTHA Reason For Exam: DYSPNEA EXAM: XR Chest, 1 View CLINICAL INDICATION: DYSPNEA TECHNIQUE: Frontal view of the chest. COMPARISON: July 11, 2024. FINDINGS: LUNGS AND PLEURAL SPACES: Unremarkable. No consolidation. No pneumothorax. HEART: Stable cardiomegaly. MEDIASTINUM: Unremarkable. Normal mediastinal contour. BONES/JOINTS: Unremarkable. No acute fracture. IMPRESSION: Stable cardiomegaly. No acute process. Report Dictated on Electronically Signed By: Juan Pereira MD Electronically Signed Date/Time: 07/23/2024 8:20 PM EST [facility] Radiology Study observation (narrative) [facility] XR Chest Single viewOrdered By: Juan Pereira on 07-23-2024 [facility] Work Phone: Progress Noteon 07-21-2024 Progress Note Normal [facility] 36on 07-20-2024 36 Unable to contact patient X2 Normal [facility] 36on 07-19-2024 36 Normal [facility] 36on 07-16-2024 36 Normal [facility] COMPREHENSIVE METABOLIC PANE Ming 07-16-2024 Albumin [Mass/Vol] 2.3 g/dL Low 3.5-5.0 [facility] Comment on above: Performed By: #### L AB103, LAB17 ####Cuff Cutter: LESLEE HERNANDEZ ([id number])[facility] [place] (SBHLAB)[address] ALP [Catalytic activity/Vol] 142 U/L Normal 40-150 [facility] Comment on above: Performed By: #### L AB103, LAB17 ####Cuff Cutter: LESLEE HERNANDEZ ([id number])[facility] [place] (SBHLAB)[address] ALT [Catalytic activity/Vol] 60 U/L High <40 [facility] Comment on above: Performed By: #### L AB103, LAB17 ####Cuff Cutter: LESLEE TURKTYRONE ([id number])[facility] [place] (SBHLAB)[address] Anion gap [Moles/Vol] 7 mmol/L Normal 3-13 [facility] Comment on above: Performed By: #### L AB103, LAB17 ####Cuff Cutter: LESLEE HERNANDEZ ([id number])[facility] [place] (SBHLAB)[address] AST [Catalytic activity/Vol] 56 U/L High <34 [facility] Comment on above: Result Comment: TCSi gnificant interference from hemolysis. Result integrity compromised. Interpret with caution. Performed By: #### L AB103, LAB17 ####Cuff Cutter: LESLEE HERNANDEZ ([id number])[facility] [place] (SBHLAB)[address] Bilirubin [Mass/Vol] 0.8 mg/dL Normal <1.2 [facility] Comment on above: Performed By: #### L AB103, LAB17 ####Cuff Cutter: LESLEE HERNANDEZ ([id number])[facility] [place] (SBHLAB)[address] Calcium [Mass/Vol] 7.0 mg/dL Low 8.4-10.2 [facility] Comment on above: Performed By: #### L AB103, LAB17 ####Cuff Cutter: LESLEE HERNANDEZ ([id number])[facility] [place] (SBHLAB)[address] Chloride [Moles/Vol] 109 mmol/L High 98-107 [facility] Comment on above: Performed By: #### L AB103, LAB17 ####Cuff Cutter: LESLEE HERNANDEZ ([id number])[facility] [place] (SBHLAB)[address] CO2 [Moles/Vol] 17 mmol/L Low 22-29 [facility] Comment on above: Performed By: #### L AB103, LAB17 ####Cuff Cutter: LESLEE HERNANDEZ ([id number])[facility] ([facility])[address] Creatinine [Mass/Vol] 1.40 mg/dL High 0.72-1.25 [facility] Comment on above: Performed By: #### L AB103, LAB17 ####Cuff Cutter: LESLEE HERNANDZE ([id number])[facility] (SB[facility])[address] GLOMERULAR FILTRATION RATE ML/MIN/1.73 SQ M.PREDICTED 62.8 mL/min/1.73m*2 Normal >60.0 [facility] Comment on above: Result Comment: Calc ulation based on the Chronic Kidney Disease Epidemiology Collaboration (CKD-EPI) equation refit without adjustment for race Performed By: #### L AB103, LAB17 ####Cuff Cutter: LESLEE HERNANDEZ ([id number])[facility] [place] (SBHLAB)[address] [place] [address] [place] Glucose [Mass/Vol] 102 mg/dL High 74-100 [facility] Comment on above: Performed By: #### L AB103, LAB17 ####Cuff Cutter: LESLEE HERNANDEZ ([id number])[facility] ([facility])[address] Potassium [Moles/Vol] 4.8 mmol/L Normal 3.5-5.1 [facility] Comment on above: Result Comment: TCSi gnificant interference from hemolysis. Result integrity compromised. Interpret with caution. Performed By: #### L AB103, LAB17 ####Cuff Cutter: LESLEE HERNANDEZ ([id number])[facility] (SBHLAB)[address] Protein [Mass/Vol] 5.2 g/dL Low 6.4-8.3 [facility] Comment on above: Result Comment: TCPo tential interference from hemolysis Performed By: #### L AB103, LAB17 ####Cuff Cutter: LESLEE HERNANDEZ ([id number])[facility] (SBHLAB)[address] Sodium [Moles/Vol] 133 mmol/L Low 136-145 [facility] Comment on above: Performed By: #### L AB103, LAB17 ####Cuff Cutter: LESLEE HERNANDEZ ([id number])[facility] (SBHLAB)[address] Urea nitrogen [Mass/Vol] 27 mg/dL High 8-21 [facility] Comment on above: Performed By: #### L AB103, LAB17 ####Cuff Cutter: LESLEE HERNANDEZ ([id number])[facility] (SBHLAB)[address] Comprehensive metabolic 1998 panelon 07-16-2024 Albumin [Mass/Vol] 2.3 g/dL Low 3.5 - 5.0 g/dL [facility] ALP [Catalytic activity/Vol] 142 U/L 40 - 150 U/L [facility] ALT [Catalytic activity/Vol] 60 U/L High NINF - 40 U/L [facility] Anion gap [Moles/Vol] 7 mmol/L 3 - 13 mmol/L [facility] AST [Catalytic activity/Vol] 56 U/L High NINF - 34 U/L [facility] Comment on above: TC Significant interference from hemolysis. Result integrity compromised. Interpret with caution. Bilirubin [Mass/Vol] 0.8 mg/dL NINF - 1.2 mg/dL [facility] Calcium [Mass/Vol] 7 mg/dL Low 8.4 - 10. 2 mg/dL [facility] Chloride [Moles/Vol] 109 mmol/L High 98 - 10 7 mmol/L [facility] CO2 [Moles/Vol] 17 mmol/L Low 22 - 29 mmol/L [facility] Creatinine [Mass/Vol] 1.4 mg/dL High 0.72 - 1.25 mg/dL [facility] GFR/1.73 sq M.predicted (S/P/Bld) [Vol rate/Area] 62.8 mL/min - PINF [facility] Comment on above: Calculation based on the Chronic Kidney Disease Epidemiology Collaboration (CKD-EPI) equation refit without adjustment for race Glucose [Mass/Vol] 102 mg/dL High 74 - 100 mg/dL [facility] Interpretation and review of laboratory results Abnormal [facility] Potassium [Moles/Vol] 4.8 mmol/L 3.5 - 5.1 mmol/L [facility] Comment on above: TC Significant interference from hemolysis. Result integrity compromised. Interpret with caution. Protein [Mass/Vol] 5.2 g/dL Low 6.4 - 8.3 g/dL [facility] Comment on above: TC Potential interference from hemolysis Sodium [Moles/Vol] 133 mmol/L Low 136 - 145 mmol/L [facility] Urea nitrogen [Mass/Vol] 27 mg/dL High 8 - 21 mg/dL [facility] Laboratory - Chemistry and C hemistry - challengeon 07-16-2024 Magnesium [Mass/Vol] 1.8 mg/dL 1.6 - 2 .6 mg/dL [facility] MAGNESIUMon 07-16-2024 Magnesium [Mass/Vol] 1.8 mg/dL Normal 1.6-2.6 [facility] Comment on above: Result Comment: ALEJANDRO Tatum COMMENTS:Higher values can be expected in females during menses. Performed By: #### L AB103, LAB17 ####Cuff Cutter: LESLEE HERNANDEZ ([id number])[facility] (SB[facility])[address] [place] [address] Magnesium [Mass/Vol]on 07-16 Interpretation and review of laboratory results Normal [facility] Higher values can be expected in females during menses. [facility] No Panel Informationon 07-16 [facility] Progress Noteon 07-16-2024 Progress Note Normal [facility] XR Abdomen Single viewon Few dilated loops of air-filled small bowel are noted is nonspecific and could represent ileus versus early or partial small bowel obstruction. Continued follow-up is recommended. Report Dictated on Electronically Signed By: Joel Hi MD Electronically Signed Date/Time: 07/16/2024 3:01 PM EST [facility] Patient Name: CARLO MEDINA : 1980 Exam Date/Time: 07/16/2024 13:13 Procedure: XR ABDOMEN 1 VIEW Ordering Provider: HUBER ANGELA Reason For Exam: ABDOMINAL PAIN SUPINE ABDOMEN (KUB) CLINICAL INDICATION: ABDOMINAL PAIN A supine plain film of the abdomen was obtained. COMPARISON: None FINDINGS: There are a few dilated loops of air-filled small bowel noted. Air and stool is noted within nondilated colon Scattered vascular calcification is noted. There are degenerative changes of the lumbar spine. [facility] Joel Hi MD - 07/16/2024 Patient Name: CARLO MEDINA : 1980 Exam Date/Time: 07/16/2024 13:13 Procedure: XR ABDOMEN 1 VIEW Ordering Provider: HUBER ANGELA Reason For Exam: ABDOMINAL PAIN SUPINE ABDOMEN (KUB) CLINICAL INDICATION: ABDOMINAL PAIN A supine plain film of the abdomen was obtained. COMPARISON: None FINDINGS: There are a few dilated loops of air-filled small bowel noted. Air and stool is noted within nondilated colon Scattered vascular calcification is noted. There are degenerative changes of the lumbar spine. IMPRESSION: Few dilated loops of air-filled small bowel are noted is nonspecific and could represent ileus versus early or partial small bowel obstruction. Continued follow-up is recommended. Report Dictated on Electronically Signed By: Joel Hi MD Electronically Signed Date/Time: 07/16/2024 3:01 PM EST [facility] Radiology Study observation (narrative) [facility] XR Abdomen Single viewOrdere d By: Joel Hi on 07-16-2024 [facility] Work Phone: 30on 07-15-2024 30 Normal [facility] 30 Normal [facility] 30 Normal [facility] BASIC METABOLIC PANELon 06-30 Anion gap [Moles/Vol] 4 mmol/L Normal 3-13 [facility] Comment on above: Performed By: #### L AB103, TEN389, LAB15 ####Cuff Cutter: LESLEE HERNANDEZ ([id number])[facility] (SBAB)[address] Calcium [Mass/Vol] 6.9 mg/dL Low 8.4-10.2 [facility] Comment on above: Performed By: #### L AB103, [id number], LAB15 ####Cuff Cutter: LESLEE HERNANDEZ ([id number])[facility] (SBHLAB)[address] Chloride [Moles/Vol] 108 mmol/L High 98-107 [facility] Comment on above: Performed By: #### L AB103, QUH994, LAB15 ####Cuff Cutter: LESLEE HERNANDEZ ([id number])[facility] (SBHLAB)[address] [place] [address] [place] CO2 [Moles/Vol] 22 mmol/L Normal 22-29 [facility] Comment on above: Performed By: #### L AB103, FNO384, LAB15 ####Cuff Cutter: LESLEE HERNANDEZ ([id number])[facility] (SBHLAB)[address] Creatinine [Mass/Vol] 1.54 mg/dL High 0.72-1.25 [facility] Comment on above: Performed By: #### L AB103, TCR685, LAB15 ####Cuff Cutter: LESLEE [id number])[facility]ILL[facility]ITAL[facility] (SBHLAB)[address] GLOMERULAR FILTRATION RATE ML/MIN/1.73 SQ M.PREDICTED 56.0 mL/min/1.73m*2 Low >60.0 [facility] Comment on above: Result Comment: Calc ulation based on the Chronic Kidney Disease Epidemiology Collaboration (CKD-EPI) equation refit without adjustment for raceORDER COMMENTS:Slightly hemolyzed Performed By: #### L AB103, CYK306, LAB15 ####Cuff Cutter: LESLEE HERNANDEZ ([id number])[facility] (SBHLAB)[address] Glucose [Mass/Vol] 108 mg/dL High 74-100 [facility] Comment on above: Performed By: #### L AB103, PIV222, LAB15 ####Cuff Cutter: LESLEE HERNANDEZ ([id number])[facility] (SBHLAB)[address] Potassium [Moles/Vol] 4.5 mmol/L Normal 3.5-5.1 [facility] Comment on above: Result Comment: TCSi gnificant interference from hemolysis. Result integrity compromised. Interpret with caution. Performed By: #### L AB103, CIU486, LAB15 ####Cuff Cutter: LESLEE HERNANDEZ ([id number])[facility]ILLKeyon [facility]ITALMarg[facility] (SBHLAB)[address] [place] [address] [place] Sodium [Moles/Vol] 134 mmol/L Low 136-145 [facility] Comment on above: Performed By: #### L AB103, ZXG373, LAB15 ####Cuff Cutter: LESLEE HERNANDEZ ([id number])[facility] (SBHLAB)[address] [place] [address] [place] Urea nitrogen [Mass/Vol] 30 mg/dL High 8-21 [facility] Comment on above: Performed By: #### L AB103, UCP857, LAB15 ####Cuff Cutter: LESLEE HERNANDEZ ([id number])[facility] (SBHLAB)[address] Basic metabolic 1998 panelon 07-15-2024 Anion gap [Moles/Vol] 4 mmol/L 3 - 13 mmol/L [facility] Calcium [Mass/Vol] 6.9 mg/dL Low 8.4 - 10. 2 mg/dL [facility] Chloride [Moles/Vol] 108 mmol/L High 98 - 10 7 mmol/L [facility] CO2 [Moles/Vol] 22 mmol/L 22 - 29 mmol/L [facility] Creatinine [Mass/Vol] 1.54 mg/dL High 0.72 - 1.25 mg/dL [facility] GFR/1.73 sq M.predicted (S/P/Bld) [Vol rate/Area] 56 mL/min Low - PINF [facility] Comment on above: Calculation based on the Chronic Kidney Disease Epidemiology Collaboration (CKD-EPI) equation refit without adjustment for race Glucose [Mass/Vol] 108 mg/dL High 74 - 100 mg/dL [facility] Interpretation and review of laboratory results Abnormal [facility] Potassium [Moles/Vol] 4.5 mmol/L 3.5 - 5.1 mmol/L [facility] Comment on above: TC Significant interference from hemolysis. Result integrity compromised. Interpret with caution. Sodium [Moles/Vol] 134 mmol/L Low 136 - 145 mmol/L [facility] Urea nitrogen [Mass/Vol] 30 mg/dL High 8 - 21 mg/dL [facility] Slightly hemolyzed [facility] CBC (HEMOGRAM)on 07-15-2024 Erythrocyte distribution width (RBC) [Ratio] 13.7 % Normal 11.5-15.0 [facility] Comment on above: Performed By: #### L AB294 ####Cuff Cutter: LESLEE HERNANDEZ ([id number])[facility] (SBHLAB)[address] Hematocrit (Bld) [Volume fraction] 37.7 % Low 40.0-52.0 [facility] Comment on above: Performed By: #### L AB294 ####Cuff Cutter: LESLEE HERNANDEZ ([id number])[facility] (SBHLAB)[address] Hemoglobin (Bld) [Mass/Vol] 12.2 g/dL Low 13.0-18.0 [facility] Comment on above: Performed By: #### L AB294 ####Cuff Cutter: LESLEE HERNANDEZ ([id number])[facility]ILLKeyon [facility] SERVICESMarguerite (SBHLAB)[address] MCH (RBC) [Entitic mass] 33.7 pg Normal 26.0-34.0 [facility] Comment on above: Performed By: #### L AB294 ####Cuff Cutter: LESLEE HERNANDEZ ([id number])[facility] (SBHLAB)[address] MCHC 32.4 % Normal 30.5-36.0 [facility] Comment on above: Performed By: #### L AB294 ####Cuff Cutter: LESLEE HERNANDEZ ([id number])[facility] (SBHLAB)[address] MCV (RBC) [Entitic vol] 104.1 fL High 77.0-99.0 [facility] Comment on above: Performed By: #### L AB294 ####Cuff Cutter: LESLEE HERNANDEZ ([id number])[facility] (SBHLAB)[address] Platelet mean volume (Bld) [Entitic vol] 10.2 fL Normal 9.0-12.7 [facility] Comment on above: Performed By: #### L AB294 ####Cuff Cutter: LESLEE HERNANDEZ ([id number])[facility] (SBHLAB)[address] Platelets (Bld) [#/Vol] 242 10*3/uL Normal 140-440 [facility] Comment on above: Performed By: #### L AB294 ####Cuff Cutter: LESLEE HERNANDEZ ([id number])[facility] (SBHLAB)[address] RBC (Bld) [#/Vol] 3.62 10*6/uL Low 4.40-5.90 [facility] Comment on above: Performed By: #### L AB294 ####Cuff Cutter: LESLEE HERNANDEZ ([id number])[facility] (SBHLAB)[address] WBC (Bld) [#/Vol] 5.5 10*3/uL Normal 3.6-10.7 [facility] Comment on above: Performed By: #### L AB294 ####Cuff Cutter: LESLEE HERNANDEZ ([id number])[facility] (SBHLAB)[address] CBC panel Auto (Bld)on 07-15 Erythrocyte distribution width (RBC) [Ratio] 13.7 % 11.5 - 15.0 % [facility] Hematocrit (Bld) [Volume fraction] 37.7 % Low 40.0 - 52.0 % [facility] Hemoglobin (Bld) [Mass/Vol] 12.2 g/dL Low 13.0 - 18.0 g/dL [facility] Interpretation and review of laboratory results Abnormal [facility] MCH (RBC) [Entitic mass] 33.7 pg 26.0 - 34.0 pg [facility] MCHC (RBC) [Mass/Vol] 32.4 % 30.5 - 36.0 % [facility] MCV (RBC) [Entitic vol] 104.1 fL High 77.0 - 99.0 fL [facility] Platelet mean volume (Bld) [Entitic vol] 10.2 fL 9.0 - 12.7 fL [facility] Platelets (Bld) [#/Vol] 242 10*3/uL 140 - 440 10*3/uL [facility] RBC (Bld) [#/Vol] 3.62 10*6/uL Low 4.40 - 5.9 0 10*6/uL [facility] WBC (Bld) [#/Vol] 5.5 10*3/uL 3.6 - 10.7 10*3/uL [facility] - Chemistry and C hemistry - challengeon 07-15-2024 Magnesium [Mass/Vol] 1.7 mg/dL 1.6 - 2 .6 mg/dL [facility] MAGNESIUMon 07-15-2024 Magnesium [Mass/Vol] 1.7 mg/dL Normal 1.6-2.6 [facility] Comment on above: Result Comment: ALEJANDRO Tatum COMMENTS:Higher values can be expected in females during menses. Performed By: #### L AB103, IJO049, LAB15 ####Cuff Cutter: LESLEE HERNANDEZ ([id number])[facility] (SBHLAB)[address] [place] [address] Magnesium [Mass/Vol]on 07-15 Interpretation and review of laboratory results Normal [facility] Higher values can be expected in females during menses. [facility] NT PRO BNPon 07-15-2024 Natriuretic peptide B (Bld) [Mass/Vol] 69002 pg/mL High <125 [facility] Comment on above: Performed By: #### L AB103, ZNF997, LAB15 ####Cuff Cutter: LESLEE HERNANDEZ ([id number])[facility] (SBHLAB)[address] [place] [address] Natriuretic peptide B [Mass/ Vol]on 07-15-2024 Interpretation and review of laboratory results Abnormal [facility] Natriuretic peptide B (Bld) [Mass/Vol] 77634 pg/mL High NINF - 125 pg/mL [facility] No Panel Informationon 07-15 [facility] Progress Noteon 07-15-2024 Progress Note Normal [facility] Progress Note Normal [facility] 30on 07-14-2024 30 Normal [facility] [id number] 07-14-2024 [id number] Normal [facility] [id number] 07-14-2024 [id number] Normal [facility] BASIC METABOLIC PANELon 06-30 Anion gap [Moles/Vol] 10 mmol/L Normal 3-13 [facility] Comment on above: Performed By: #### L AB103, LAB15, LAB20, LAB99 ####Cuff Cutter: LESLEE HERNANDEZ ([id number])[facility] (SBHLAB)[address] Calcium [Mass/Vol] 8.3 mg/dL Low 8.4-10.2 [facility] Comment on above: Performed By: #### L AB103, LAB15, LAB20, LAB99 ####Cuff Cutter: LESLEE HERNANDEZ ([id number])[facility]ILL[facility] (SBHLAB)[address] Chloride [Moles/Vol] 104 mmol/L Normal 98-107 [facility] Comment on above: Performed By: #### L AB103, LAB15, LAB20, LAB99 ####Cuff Cutter: LESLEE HERNANDEZ ([id number])[facility]ILLKeyon [facility]EN[facility] (SBHLAB)[address] CO2 [Moles/Vol] 23 mmol/L Normal 22-29 [facility] Comment on above: Performed By: #### L AB103, LAB15, LAB20, LAB99 ####Cuff Cutter: LESLEE HERNANDEZ ([id number])[facility]ILLKey[facility]EN[facility] (SBHLAB)[address] Creatinine [Mass/Vol] 1.81 mg/dL High 0.72-1.25 [facility] Comment on above: Performed By: #### L AB103, LAB15, LAB20, LAB99 ####Cuff Cutter: LESLEE HERNANDEZ ([id number])[facility] [place] (SBHLAB)[address] GLOMERULAR FILTRATION RATE ML/MIN/1.73 SQ M.PREDICTED 46.1 mL/min/1.73m*2 Low >60.0 [facility] Comment on above: Result Comment: Calc ulation based on the Chronic Kidney Disease Epidemiology Collaboration (CKD-EPI) equation refit without adjustment for race Performed By: #### L AB103, LAB15, LAB20, LAB99 ####Cuff Cutter: LESLEE HERNANDEZ ([id number])[facility] (SBHLAB)[address] [place] [address] [place] Glucose [Mass/Vol] 115 mg/dL High 74-100 [facility] Comment on above: Performed By: #### L AB103, LAB15, LAB20, LAB99 ####Cuff Cutter: LESLEE HERNANDEZ ([id number])[facility] (SBHLAB)[address] Potassium [Moles/Vol] 4.2 mmol/L Normal 3.5-5.1 [facility] Comment on above: Result Comment: [facility] potassium values may be up to 0.5 mmol/L lower than serum values. Performed By: #### L AB103, LAB15, LAB20, LAB99 ####Cuff Cutter: LESLEE HERNANDEZ ([id number])[facility] ([facility] Sodium [Moles/Vol] 137 mmol/L Normal 136-145 [facility] Comment on above: Performed By: #### L AB103, LAB15, LAB20, LAB99 ####Cuff Cutter: LESLEE HERNANDEZ ([id number])[facility] ([facility])[address] [place] [address] Urea nitrogen [Mass/Vol] 33 mg/dL High 8-21 [facility] Comment on above: Performed By: #### L AB103, LAB15, LAB20, LAB99 ####Cuff Cutter: LESLEE HERNANDEZ ([id number])[facility] ([facility])[address] [place] [address] Basic metabolic 1998 panelon 07-14-2024 Anion gap [Moles/Vol] 10 mmol/L 3 - 13 mmol/L [facility] Calcium [Mass/Vol] 8.3 mg/dL Low 8.4 - 10. 2 mg/dL [facility] Chloride [Moles/Vol] 104 mmol/L 98 - 10 7 mmol/L [facility] CO2 [Moles/Vol] 23 mmol/L 22 - 29 mmol/L [facility] Creatinine [Mass/Vol] 1.81 mg/dL High 0.72 - 1.25 mg/dL [facility] GFR/1.73 sq M.predicted (S/P/Bld) [Vol rate/Area] 46.1 mL/min Low - PINF [facility] Comment on above: Calculation based on the Chronic Kidney Disease Epidemiology Collaboration (CKD-EPI) equation refit without adjustment for race Glucose [Mass/Vol] 115 mg/dL High 74 - 100 mg/dL [facility] Interpretation and review of laboratory results Abnormal [facility] Potassium [Moles/Vol] 4.2 mmol/L 3.5 - 5.1 mmol/L [facility] Comment on above: Plasma potassium heidi ues may be up to 0.5 mmol/L lower than serum values. Sodium [Moles/Vol] 137 mmol/L 136 - 145 mmol/L [facility] Urea nitrogen [Mass/Vol] 33 mg/dL High 8 - 21 mg/dL [facility] HEPATIC FUNCTION PANELon Albumin [Mass/Vol] 3.1 g/dL Low 3.5-5.0 [facility] Comment on above: Performed By: #### L AB103, LAB15, LAB20, LAB99 ####Cuff Cutter: LESLEE HERNANDEZ ([id number])[facility] (SBHLAB)[address] ALP [Catalytic activity/Vol] 229 U/L High 40-150 [facility] Comment on above: Performed By: #### L AB103, LAB15, LAB20, LAB99 ####Cuff Cutter: LESLEE HERNANDEZ ([id number])[facility] (SBHLAB)[address] [place] [address] [place] ALT [Catalytic activity/Vol] 109 U/L High <40 [facility] Comment on above: Performed By: #### L AB103, LAB15, LAB20, LAB99 ####Cuff Cutter: LESLEE HERNANDEZ ([id number])[facility]HILLA BARBREHOBOTH MCKIN[facility] CHRIST[facility] CARE SERVICESN (SBHLAB)[address] [place] [address] [place] AST [Catalytic activity/Vol] 50 U/L High <34 [facility] Comment on above: Performed By: #### L AB103, LAB15, LAB20, LAB99 ####Cuff Cutter: LESLEE HERNANDEZ ([id number])[facility] (SBHLAB)[address] Bilirubin [Mass/Vol] 1.3 mg/dL High <1.2 [facility] Comment on above: Performed By: #### L AB103, LAB15, LAB20, LAB99 ####Cuff Cutter: LESLEE HERNANDEZ ([id number])[facility] (SBHLAB)[address] Bilirubin.indirect [Mass/Vol] 0.5 mg/dL High <0.5 [facility] Comment on above: Performed By: #### L AB103, LAB15, LAB20, LAB99 ####Cuff Cutter: LESLEE HERNANDEZ ([id number])[facility] ([facility])[address] [place] [address] Protein [Mass/Vol] 6.4 g/dL Normal 6.4-8.3 [facility] Comment on above: Result Comment: Seru m protein values are higher than plasma values. Samples from recumbent persons are lower by up to 0.5 g/dL as compared to ambulatory persons. After 60 years values are lower by up to 0.2 g/dL. Performed By: #### L AB103, LAB15, LAB20, LAB99 ####Cuff Cutter: LESLEE HERNANDEZ ([id number])[facility] ([facility])[address] [place] [address] Hepatic function 2000 panelo n 07-14-2024 Albumin [Mass/Vol] 3.1 g/dL Low 3.5 - 5.0 g/dL [facility] ALP [Catalytic activity/Vol] 229 U/L High 40 - 150 U/L [facility] ALT [Catalytic activity/Vol] 109 U/L High NINF - 40 U/L [facility] AST [Catalytic activity/Vol] 50 U/L High NINF - 34 U/L [facility] Bilirubin [Mass/Vol] 1.3 mg/dL High NINF - 1.2 mg/dL [facility] Bilirubin.conjugated [Mass/Vol] 0.5 mg/dL High NINF - 0.5 mg/dL [facility] Interpretation and review of laboratory results Abnormal [facility] Protein [Mass/Vol] 6.4 g/dL 6.4 - 8.3 g/dL [facility] Comment on above: Serum protein values are higher than plasma values. Samples from recumbent persons are lower by up to 0.5 g/dL as compared to ambulatory persons. After 60 years values are lower by up to 0.2 g/dL. LIPASEon 07-14-2024 Lipase [Catalytic activity/Vol] 27 U/L Normal <55 [facility] Comment on above: Performed By: #### L AB103, LAB15, LAB20, LAB99 ####Cuff Cutter: LESLEE HERNANDEZ ([id number])[facility] ([facility])[address] [place] [address] Laboratory - Chemistry and C hemistry - challengeon 07-14-2024 Lipase [Catalytic activity/Vol] 27 U/L NINF - 55 U/L [facility] Magnesium [Mass/Vol] 2 mg/dL 1.6 - 2 .6 mg/dL [facility] Lipase [Catalytic activity/V ol]on 07-14-2024 Interpretation and review of laboratory results Normal [facility] MAGNESIUMon 07-14-2024 Magnesium [Mass/Vol] 2.0 mg/dL Normal 1.6-2.6 [facility] Comment on above: Result Comment: ALEJANDRO Tatum COMMENTS:Higher values can be expected in females during menses. Performed By: #### L AB103, LAB15, LAB20, LAB99 ####Cuff Cutter: LESLEE HERNANDEZ ([id number])[facility] (SBHLAB)[address] [place] [address] Magnesium [Mass/Vol]on 07-14 Interpretation and review of laboratory results Normal [facility] Higher values can be expected in females during menses. [facility] No Panel InformationOrdered By: Radha Parikh on 07-14-2024 P [place] 82 degrees [employer] [facility] Work Phone: IN Interval 83 ms [facility] Work Phone: QRS [place] -26 degrees [employer] [facility] Work Phone: [phone] QRSD Interval 93 ms [facility] Work Phone: QT Interval 342 ms [employer] Work Phone: QTC Interval 546 ms [facility] Work Phone: T Wave [place] 242 degrees [facility] Phone: [facility] Work Phone: No Panel Informationon 07-14 Radha Parikh MD - 07/14/2024 IMPRESSION: Atrial tachycardia Abnormal R-wave progression, late transition Probable LVH with secondary repol abnrm Prolonged QT interval Electronically Signed On 07-14-2024 09:33:32 EST by Radha Parikh [facility] Progress Noteon 07-14-2024 Progress Note Normal [facility] [employer] h System [facility] Progress Note Normal [facility] [email or web address] [facility] Progress Note Normal [facility] [email or web address] [facility] Vital signsOrdered By: Radha Parikh on 07-14-2024 Heart rate 153 /min bpm [facility] [employer] Phone: BASIC METABOLIC PANELon 06-30 Anion gap [Moles/Vol] 9 mmol/L Normal 3-13 [facility] Comment on above: Performed By: #### L AB103, LAB15, [id number] ####Cuff Cutter: LESLEE HERNANDEZ ([id number])[facility] (SBHLAB)[address] Calcium [Mass/Vol] 8.1 mg/dL Low 8.4-10.2 [facility] Comment on above: Performed By: #### L AB103, LAB15, LJN900 ####Cuff Cutter: LESLEE HERNANDEZ ([id number])[facility] (SBHLAB)[address] [place] [address] [place] Chloride [Moles/Vol] 105 mmol/L Normal 98-107 [facility] Comment on above: Performed By: #### L AB103, LAB15, NRW014 ####Cuff Cutter: LESLEE HERNANDEZ ([id number])[facility] (SBHLAB)[address] CO2 [Moles/Vol] 21 mmol/L Low 22-29 [facility] Comment on above: Performed By: #### L AB103, LAB15, [id number] ####Cuff Cutter: LESLEE HERNANDEZ ([id number])[facility] [place] (SBHLAB)[address] Creatinine [Mass/Vol] 1.90 mg/dL High 0.72-1.25 [facility] Comment on above: Performed By: #### L AB103, LAB15, [id number] ####Cuff Cutter: LESLEE HERNANDEZ ([id number])[facility]ILLKeyon [facility]ITAL[facility] ([facility])[address] GLOMERULAR FILTRATION RATE ML/MIN/1.73 SQ M.PREDICTED 43.5 mL/min/1.73m*2 Low >60.0 [facility] Comment on above: Result Comment: Calc ulation based on the Chronic Kidney Disease Epidemiology Collaboration (CKD-EPI) equation refit without adjustment for race Performed By: #### L AB103, LAB15, [id number] ####Cuff Cutter: LESLEE HERNANDEZ ([id number])[facility]Keyon [facility] ([facility])[address] Glucose [Mass/Vol] 126 mg/dL High 74-100 [facility] Comment on above: Performed By: #### L AB103, LAB15, WUM716 ####Cuff Cutter: LESLEE HERNANDEZ ([id number])[facility]ILLKeyon [facility] (SBAB)[address] Potassium [Moles/Vol] 4.1 mmol/L Normal 3.5-5.1 [facility] Comment on above: Result Comment: [facility] potassium values may be up to 0.5 mmol/L lower than serum values. Performed By: #### L AB103, LAB15, [id number] ####Cuff Cutter: LESLEE HERNANDEZ ([id number])[facility] (SBHLAB)[address] [place] [address] [place] Sodium [Moles/Vol] 135 mmol/L Low 136-145 [facility] Comment on above: Performed By: #### L AB103, LAB15, YUU851 ####Cuff Cutter: LESLEE HERNANDEZ ([id number])[facility] (SBHLAB)[address] Urea nitrogen [Mass/Vol] 35 mg/dL High 8-21 [facility] Comment on above: Performed By: #### L AB103, LAB15, MZW987 ####Cuff Cutter: LESLEE HERNANDEZ ([id number])[facility] (SBHLAB)[address] Basic metabolic 1998 panelon 07-13-2024 Anion gap [Moles/Vol] 9 mmol/L 3 - 13 mmol/L [facility] Calcium [Mass/Vol] 8.1 mg/dL Low 8.4 - 10. 2 mg/dL [facility] Chloride [Moles/Vol] 105 mmol/L 98 - 10 7 mmol/L [facility] CO2 [Moles/Vol] 21 mmol/L Low 22 - 29 mmol/L [facility] Creatinine [Mass/Vol] 1.9 mg/dL High 0.72 - 1.25 mg/dL [facility] GFR/1.73 sq M.predicted (S/P/Bld) [Vol rate/Area] 43.5 mL/min Low - PINF [facility] Comment on above: Calculation based on the Chronic Kidney Disease Epidemiology Collaboration (CKD-EPI) equation refit without adjustment for race Glucose [Mass/Vol] 126 mg/dL High 74 - 100 mg/dL [facility] Interpretation and review of laboratory results Abnormal [facility] Potassium [Moles/Vol] 4.1 mmol/L 3.5 - 5.1 mmol/L [facility] Comment on above: Plasma potassium heidi ues may be up to 0.5 mmol/L lower than serum values. Sodium [Moles/Vol] 135 mmol/L Low 136 - 145 mmol/L [facility] Urea nitrogen [Mass/Vol] 35 mg/dL High 8 - 21 mg/dL [facility] CBC (HEMOGRAM)on 07-13-2024 Erythrocyte distribution width (RBC) [Ratio] 13.9 % Normal 11.5-15.0 [facility] Comment on above: Performed By: #### L AB294 ####Cuff Cutter: LESLEE HERNANDEZ ([id number])[facility]ILLKeyon [facility]ITALMarg[facility] ([facility])[address] [place] [address] Hematocrit (Bld) [Volume fraction] 39.7 % Low 40.0-52.0 [facility] Comment on above: Performed By: #### L AB294 ####Cuff Cutter: LESLEE HERNANDEZ ([id number])[facility] ([facility])[address] [place] [address] Hemoglobin (Bld) [Mass/Vol] 12.9 g/dL Low 13.0-18.0 [facility] Comment on above: Performed By: #### L AB294 ####Cuff Cutter: LESLEE TURKTYRONE ([id number])[facility] ([facility])[address] [place] [address] MCH (RBC) [Entitic mass] 33.2 pg Normal 26.0-34.0 [facility] Comment on above: Performed By: #### L AB294 ####Cuff Cutter: LESLEE HERNANDEZ ([id number])[facility] ([facility])[address] [place] [address] MCHC 32.5 % Normal 30.5-36.0 [facility] Comment on above: Performed By: #### L [id number] ####Cuff Cutter: LESLEE HERNANDEZ ([id number])[facility] [place] [address] MCV (RBC) [Entitic vol] 102.3 fL High 77.0-99.0 [facility] Comment on above: Performed By: #### L [id number] ####Cuff Cutter: LESLEE HERNANDEZ ([id number])[facility] [facility] [place] [address] Platelet mean volume (Bld) [Entitic vol] 9.9 fL Normal 9.0-12.7 [facility] Comment on above: Performed By: #### L [id number] ####Cuff Cutter: LESLEE HERNANDEZ ([id number])[facility] [place] (SBHLAB)[address] Platelets (Bld) [#/Vol] 232 10*3/uL Normal 140-440 [facility] Comment on above: Performed By: #### L AB294 ####Cuff Cutter: LESLEE HERNANDEZ ([id number])[facility] KNOTTREHOB[facility] M[facility] SERVICESN (SBHLAB)[address] RBC (Bld) [#/Vol] 3.88 10*6/uL Low 4.40-5.90 [facility] Comment on above: Performed By: #### L AB294 ####Cuff Cutter: LESLEE HERNANDEZ ([id number])[facility] [place] (SBHLAB)[address] WBC (Bld) [#/Vol] 6.6 10*3/uL Normal 3.6-10.7 [facility] Comment on above: Performed By: #### L AB294 ####Cuff Cutter: LESLEE TURKTYRONE ([id number])[facility] (SBHLAB)[address] CBC panel Auto (Bld)on 07-13 Erythrocyte distribution width (RBC) [Ratio] 13.9 % 11.5 - 15.0 % [facility] Hematocrit (Bld) [Volume fraction] 39.7 % Low 40.0 - 52.0 % [facility] Hemoglobin (Bld) [Mass/Vol] 12.9 g/dL Low 13.0 - 18.0 g/dL [facility] Interpretation and review of laboratory results Abnormal [facility] MCH (RBC) [Entitic mass] 33.2 pg 26.0 - 34.0 pg [facility] MCHC (RBC) [Mass/Vol] 32.5 % 30.5 - 36.0 % [facility] MCV (RBC) [Entitic vol] 102.3 fL High 77.0 - 99.0 fL [facility] Platelet mean volume (Bld) [Entitic vol] 9.9 fL 9.0 - 12.7 fL [facility] Platelets (Bld) [#/Vol] 232 10*3/uL 140 - 440 10*3/uL [facility] RBC (Bld) [#/Vol] 3.88 10*6/uL Low 4.40 - 5.9 0 10*6/uL [facility] WBC (Bld) [#/Vol] 6.6 10*3/uL 3.6 - 10.7 10*3/uL [facility] - Chemistry and C hemistry - challengeon 07-13-2024 Magnesium [Mass/Vol] 2 mg/dL 1.6 - 2 .6 mg/dL [facility] MAGNESIUMon 07-13-2024 Magnesium [Mass/Vol] 2.0 mg/dL Normal 1.6-2.6 [facility] Comment on above: Result Comment: ALEJANDRO Tatum COMMENTS:Higher values can be expected in females during menses. Performed By: #### L AB103, LAB15, [id number] ####Cuff Cutter: LESLEE HERNANDEZ ([id number])[facility] Magnesium [Mass/Vol]on 07-13 Interpretation and review of laboratory results Normal [facility] Higher values can be expected in females during menses. [facility] NT PRO BNPon 07-13-2024 Natriuretic peptide B (Bld) [Mass/Vol] 19795 pg/mL High <125 [facility] Comment on above: Performed By: #### L AB103, LAB15, [id number] ####Cuff Cutter: LESLEE HERNANDEZ ([id number])[facility] Natriuretic peptide B [Mass/ Vol]on 07-13-2024 Interpretation and review of laboratory results Abnormal [facility] Natriuretic peptide B (Bld) [Mass/Vol] 87459 pg/mL High NINF - 125 pg/mL [facility] No Panel Informationon 07-13 [facility] Nursing Noteon 07-13-2024 Nursing Note 11 beat wide complex beats-denied symptoms to this RN. Dr Jeter spoke at length to pt re: health risks with refusing intervention. Normal [facility] Progress Noteon 07-13-2024 Progress Note He developed sinus tach on tele EKG obtained 5mg of lopressor ordered He then spontaneously went back to normal rhythm before being given. He did have fluttering in his chest, all symptoms now resolved EKG of sinus tach is in epic Normal [facility] Progress Note Normal [facility] Progress Note Normal [facility] Progress Note Nutrition rescreen completed. Chart reviewed. Patient to be monitored and followed by the diet industrial engineering technician. Normal [facility] 30on 07-12-2024 30 Normal [facility] APTTon 07-12-2024 aPTT Coag (Bld) [Time] 41.9 s High 20.0-30.5 [facility] Comment on above: Result Comment: ALEJANDRO Tatum COMMENTS:NOTE: The therapeutic time for Heparin anticoagulation, based on Xa activity inhibition, is an APTT of 46-80 seconds. Performed By: #### L AB325 ####Cuff Cutter: LESLEE HERNANDEZ ([id number])[facility] (SBHLAB)[address] [place] [address] aPTT Coag (Bld) [Time] 59.4 s High 20.0-30.5 [facility] Comment on above: Result Comment: ALEJANDRO Tatum COMMENTS:NOTE: The therapeutic time for Heparin anticoagulation, based on Xa activity inhibition, is an APTT of 46-80 seconds. Performed By: #### L AB325 ####Cuff Cutter: LESLEE HERNANDEZ ([id number])[facility] (SBHLAB)[address] BASIC METABOLIC PANELon 06-30 Anion gap [Moles/Vol] 11 mmol/L Normal - [facility] Comment on above: Performed By: #### L AB15, [id number] ####Cuff Cutter: LESLEE HERNANDEZ ([id number])[facility] (SBHLAB)[address] Calcium [Mass/Vol] 8.7 mg/dL Normal 8.4-10.2 [facility] Comment on above: Performed By: #### L AB15, [id number] ####Cuff Cutter: LESLEE HERNANDEZ ([id number])[facility]ILLA BARBALLISON (SBHLAB)[address] Chloride [Moles/Vol] 108 mmol/L High 98-107 [facility] Comment on above: Performed By: #### L AB15, [id number] ####Cuff Cutter: LESLEE HERNANDEZ ([id number])[facility]ILLKeyon BARBREHOBOTH MCKINLEY CHRIST[facility] CARE SERVICESN (SBHLAB)[address] CO2 [Moles/Vol] 22 mmol/L Normal 22-29 [facility] Comment on above: Performed By: #### L AB15, [id number] ####Cuff Cutter: LESLEE HERNANDEZ ([id number])[facility] (SBHLAB)[address] Creatinine [Mass/Vol] 1.90 mg/dL High 0.72-1.25 [facility] Comment on above: Performed By: #### L AB15, AMV032 ####Cuff Cutter: LESLEE HERNANDEZ ([id number])[facility] (SBHLAB)[address] [place] [address] [place] GLOMERULAR FILTRATION RATE ML/MIN/1.73 SQ M.PREDICTED 43.5 mL/min/1.73m*2 Low >60.0 [facility] Comment on above: Result Comment: Calc ulation based on the Chronic Kidney Disease Epidemiology Collaboration (CKD-EPI) equation refit without adjustment for race Performed By: #### L AB15, [id number] ####Cuff Cutter: LESLEE HERNANDEZ ([id number])[facility] MED[facility] CENTEREFRAÍNN (SBHLAB)[address] [place] [address] [place] Glucose [Mass/Vol] 124 mg/dL High 74-100 [facility] Comment on above: Performed By: #### L AB15, [id number] ####Cuff Cutter: LESLEE HERNANDEZ ([id number])[facility] [place] (SBHLAB)[address] Potassium [Moles/Vol] 4.5 mmol/L Normal 3.5-5.1 [facility] Comment on above: Result Comment: [facility] potassium values may be up to 0.5 mmol/L lower than serum values. Performed By: #### L AB15, [id number] ####Cuff Cutter: LESLEE HERNANDEZ ([id number])[facility] (SBHLAB)[address] Sodium [Moles/Vol] 141 mmol/L Normal 136-145 [facility] Comment on above: Performed By: #### L AB15, [id number] ####Cuff Cutter: LESLEE HERNANDEZ ([id number])[facility] (SBHLAB)[address] Urea nitrogen [Mass/Vol] 31 mg/dL High 8-21 [facility] Comment on above: Performed By: #### L AB15, [id number] ####Cuff Cutter: LESLEE HERNANDEZ ([id number])[facility] (SBHLAB)[address] Basic metabolic 1998 panelon 07-12-2024 Anion gap [Moles/Vol] 11 mmol/L 3 - 13 mmol/L [facility] Calcium [Mass/Vol] 8.7 mg/dL 8.4 - 10. 2 mg/dL [facility] Chloride [Moles/Vol] 108 mmol/L High 98 - 10 7 mmol/L [facility] CO2 [Moles/Vol] 22 mmol/L 22 - 29 mmol/L [facility] Creatinine [Mass/Vol] 1.9 mg/dL High 0.72 - 1.25 mg/dL [facility] GFR/1.73 sq M.predicted (S/P/Bld) [Vol rate/Area] 43.5 mL/min Low - PINF [facility] Comment on above: Calculation based on the Chronic Kidney Disease Epidemiology Collaboration (CKD-EPI) equation refit without adjustment for race Glucose [Mass/Vol] 124 mg/dL High 74 - 100 mg/dL [facility] Interpretation and review of laboratory results Abnormal [facility] Potassium [Moles/Vol] 4.5 mmol/L 3.5 - 5.1 mmol/L [facility] Comment on above: Plasma potassium heidi ues may be up to 0.5 mmol/L lower than serum values. Sodium [Moles/Vol] 141 mmol/L 136 - 145 mmol/L [facility] Urea nitrogen [Mass/Vol] 31 mg/dL High 8 - 21 mg/dL [facility] CBC W Auto Differential pane l (Bld)Ordered By: Roberto Puckett on 07-12-2024 Basophils (Bld) [#/Vol] 0 10*3/uL 0.0 - 0.2 10*3/uL [facility] Basophils/100 WBC (Bld) 0.5 % 0.0 - 2.0 % [facility] Eosinophils (Bld) [#/Vol] 0 10*3/uL 0.0 - 0.5 10*3/uL [facility] Eosinophils/100 WBC (Bld) 0.4 % 0.0 - 6.0 % [facility] Erythrocyte distribution width (RBC) [Ratio] 14.3 % 11.5 - 15.0 % [facility] Hematocrit (Bld) [Volume fraction] 45.6 % 40.0 - 52.0 % [facility] Hemoglobin (Bld) [Mass/Vol] 14.4 g/dL 13.0 - 18.0 g/dL [facility] Immature granulocytes (Bld) [#/Vol] 0 10*3/uL NINF - 0.1 10*3/uL [facility] Immature granulocytes/100 WBC (Bld) 0.1 % 0.0 - 2.0 % [facility] Interpretation and review of laboratory results Abnormal [facility] Lymphocytes (Bld) [#/Vol] 2.7 10*3/uL 1.0 - 4.3 10*3/uL [facility] Lymphocytes/100 WBC (Bld) 32.6 % 15.0 - 45.0 % [facility] MCH (RBC) [Entitic mass] 33.2 pg 26.0 - 34.0 pg [facility] MCHC (RBC) [Mass/Vol] 31.6 % 30.5 - 36.0 % [facility] MCV (RBC) [Entitic vol] 105.1 fL High 77.0 - 99.0 fL [facility] Monocytes (Bld) [#/Vol] 0.6 10*3/uL 0.0 - 0.9 10*3/uL [facility] Monocytes/100 WBC (Bld) 7.7 % 5.0 - 13.0 % [facility] Neutrophils (Bld) [#/Vol] 4.8 10*3/uL 1.8 - 7.5 10*3/uL [facility] Neutrophils/100 WBC (Bld) 58.7 % 38.0 - 82.0 % [facility] Nucleated RBC/100 WBC (Bld) [Ratio] 0 % [facility] Platelet mean volume (Bld) [Entitic vol] 9.8 fL 9.0 - 12.7 fL [facility] Platelets (Bld) [#/Vol] 246 10*3/uL 140 - 440 10*3/uL [facility] RBC (Bld) [#/Vol] 4.34 10*6/uL Low 4.40 - 5.9 0 10*6/uL [facility] WBC (Bld) [#/Vol] 8.2 10*3/uL 3.6 - 10.7 10*3/uL [facility] CBC WITH AUTO DIFFERENTIALon 07-12-2024 Basophils (Bld) [#/Vol] 0.0 10*3/uL Normal 0.0-0.2 [facility] Comment on above: Performed By: #### L [id number] ####Cuff Cutter: LESLEE HERNANDEZ ([id number])[facility] ([facility])[address] [place] [address] Basophils/100 WBC (Bld) 0.5 % Normal 0.0-2.0 [facility] Comment on above: Performed By: #### L [id number] ####Cuff Cutter: LESLEE HERNANDEZ ([id number])[facility] ([facility])[address] Eosinophils (Bld) [#/Vol] 0.0 10*3/uL Normal 0.0-0.5 [facility] Comment on above: Performed By: #### L [id number] ####Cuff Cutter: LESLEE HERNANDEZ ([id number])[facility] ([facility])[address] Eosinophils/100 WBC (Bld) 0.4 % Normal 0.0-6.0 [facility] Comment on above: Performed By: #### L [id number] ####Cuff Cutter: LESLEE TURKTYRONE ([id number])[facility]A [facility] (SBHLAB)[address] Erythrocyte distribution width (RBC) [Ratio] 14.3 % Normal 11.5-15.0 [facility] Comment on above: Performed By: #### L [id number] ####Cuff Cutter: LESLEE HERNANDEZ ([id number])[facility] ([facility])[address] [place] [address] Hematocrit (Bld) [Volume fraction] 45.6 % Normal 40.0-52.0 [facility] Comment on above: Performed By: #### L [id number] ####Cuff Cutter: LESLEE HERNANDEZ ([id number])[facility] (SBHLAB)[address] Hemoglobin (Bld) [Mass/Vol] 14.4 g/dL Normal 13.0-18.0 [facility] Comment on above: Performed By: #### L [id number] ####Cuff Cutter: LESLEE HERNANDEZ ([id number])[facility] (HLAB)[address] IMMATURE GRANS % 0.1 % Normal 0.0-2.0 [facility] Comment on above: Performed By: #### L [id number] ####Cuff Cutter: LESLEE HERNANDEZ ([id number])[facility] (HLAB)[address] IMMATURE GRANS ABSOLUTE 0.0 10*3/uL Normal <0.1 [facility] Comment on above: Performed By: #### L [id number] ####Cuff Cutter: LESLEE HERNANDEZ ([id number])[facility] (SBAB)[address] Lymphocytes (Bld) [#/Vol] 2.7 10*3/uL Normal 1.0-4.3 [facility] Comment on above: Performed By: #### L [id number] ####Cuff Cutter: LESLEE TURKTYRONE ([id number])[facility] [place] (SBHLAB)[address] Lymphocytes/100 WBC (Bld) 32.6 % Normal 15.0-45.0 [facility] Comment on above: Performed By: #### L [id number] ####Cuff Cutter: LESLEE HERNANDEZ ([id number])[facility] [place] (SBHLAB)[address] MCH (RBC) [Entitic mass] 33.2 pg Normal 26.0-34.0 [facility] Comment on above: Performed By: #### L [id number] ####Cuff Cutter: LESLEE HERNANDEZ ([id number])[facility] [place] (SBHLAB)[address] MCHC 31.6 % Normal 30.5-36.0 [facility] Comment on above: Performed By: #### L [id number] ####Cuff Cutter: LESLEE HERNANDEZ ([id number])[facility] [place] (SBHLAB)[address] [place] [address] MCV (RBC) [Entitic vol] 105.1 fL High 77.0-99.0 [facility] Comment on above: Performed By: #### L [id number] ####Cuff Cutter: LESLEE HERNANDEZ ([id number])[facility] [place] (SBHLAB)[address] Monocytes (Bld) [#/Vol] 0.6 10*3/uL Normal 0.0-0.9 [facility] Comment on above: Performed By: #### L [id number] ####Cuff Cutter: LESLEE HERNANDEZ ([id number])[facility] [place] (SBHLAB)[address] Monocytes/100 WBC (Bld) 7.7 % Normal 5.0-13.0 [facility] Comment on above: Performed By: #### L [id number] ####Cuff Cutter: LESLEE HERNANDEZ ([id number])[facility] [place] (SBHLAB)[address] NEUTROPHILS ABSOLUTE 4.8 10*3/uL Normal 1.8-7.5 [facility] Comment on above: Performed By: #### L [id number] ####Cuff Cutter: LESLEE HERNANDEZ ([id number])[facility] [place] (SBHLAB)[address] Neutrophils/100 WBC (Bld) 58.7 % Normal 38.0-82.0 [facility] Comment on above: Performed By: #### L [id number] ####Cuff Cutter: LESLEE HERNANDEZ ([id number])[facility] [place] (SBHLAB)[address] NRBC 0.0 /100 WBCs Normal 0.0-2.0 [facility] Comment on above: Performed By: #### L [id number] ####Cuff Cutter: LESLEE HERNANDEZ ([id number])[facility] [place] (SBHLAB)[address] Platelet mean volume (Bld) [Entitic vol] 9.8 fL Normal 9.0-12.7 [facility] Comment on above: Performed By: #### L [id number] ####Cuff Cutter: LESLEE HERNANDEZ ([id number])[facility] [place] (SBHLAB)[address] Platelets (Bld) [#/Vol] 246 10*3/uL Normal 140-440 [facility] Comment on above: Performed By: #### L [id number] ####Cuff Cutter: LESLEE HERNANDEZ ([id number])[facility] [place] (SBHLAB)[address] [place] [address] [place] RBC (Bld) [#/Vol] 4.34 10*6/uL Low 4.40-5.90 [facility] Comment on above: Performed By: #### L [id number] ####Cuff Cutter: LESLEE HERNANDEZ ([id number])[facility] [place] (SBHLAB)[address] WBC (Bld) [#/Vol] 8.2 10*3/uL Normal 3.6-10.7 [facility] Comment on above: Performed By: #### L [id number] ####Cuff Cutter: LESLEE HERNANDEZ ([id number])[facility] [place] (SBHLAB)[address] COMPREHENSIVE METABOLIC PANE Ming 07-12-2024 Albumin [Mass/Vol] 3.0 g/dL Low 3.5-5.0 [facility] Comment on above: Performed By: #### L AB103, [id number], LAB17 ####Cuff Cutter: LESLEE HERNANDEZ ([id number])[facility] [place] (SBHLAB)[address] ALP [Catalytic activity/Vol] 181 U/L High 40-150 [facility] Comment on above: Performed By: #### L AB103, NLP089, LAB17 ####Cuff Cutter: LESLEE HERNANDEZ ([id number])[facility] [place] (SBHLAB)[address] ALT [Catalytic activity/Vol] 127 U/L High <40 [facility] Comment on above: Performed By: #### L AB103, TER086, LAB17 ####Cuff Cutter: LESLEE HERNANDEZ ([id number])[facility] [place] (SBHLAB)[address] Anion gap [Moles/Vol] 12 mmol/L Normal 3-13 [facility] Comment on above: Performed By: #### L AB103, [id number], LAB17 ####Cuff Cutter: LESLEE HERNANDEZ ([id number])[facility] [place] (SBHLAB)[address] [place] [address] [place] AST [Catalytic activity/Vol] 63 U/L High <34 [facility] Comment on above: Performed By: #### L AB103, BTJ202, LAB17 ####Cuff Cutter: LESLEE HERNANDEZ ([id number])[facility]ILLKey[facility] [place] (SBHLAB)[address] Bilirubin [Mass/Vol] 2.0 mg/dL High <1.2 [facility] Comment on above: Performed By: #### L AB103, KJM403, LAB17 ####Cuff Cutter: LESLEE EHRNANDEZ ([id number])[facility] [place] (SBHLAB)[address] Calcium [Mass/Vol] 8.6 mg/dL Normal 8.4-10.2 [facility] Comment on above: Performed By: #### L AB103, YXZ042, LAB17 ####Cuff Cutter: LESLEE HERNANDEZ ([id number])[facility] [place] (SBHLAB)[address] Chloride [Moles/Vol] 107 mmol/L Normal 98-107 [facility] Comment on above: Performed By: #### L AB103, [id number], LAB17 ####Cuff Cutter: LESLEE HERNANDEZ ([id number])[facility] [place] (SBHLAB)[address] [place] [address] [place] CO2 [Moles/Vol] 20 mmol/L Low 22-29 [facility] Comment on above: Performed By: #### L AB103, PJR172, LAB17 ####Cuff Cutter: LESLEE HERNANDEZ ([id number])[facility] [place] (SBHLAB)[address] [place] [address] [place] Creatinine [Mass/Vol] 1.79 mg/dL High 0.72-1.25 [facility] Comment on above: Performed By: #### L AB103, RNX176, LAB17 ####Cuff Cutter: LESLEE HERNANDEZ ([id number])[facility]A BARBREHOBOTH MCK[facility] CH[facility] SERVICESN (SBHLAB)[address] [place] [address] [place] GLOMERULAR FILTRATION RATE ML/MIN/1.73 SQ M.PREDICTED 46.7 mL/min/1.73m*2 Low >60.0 [facility] Comment on above: Result Comment: Calc ulation based on the Chronic Kidney Disease Epidemiology Collaboration (CKD-EPI) equation refit without adjustment for race Performed By: #### L AB103, NRM611, LAB17 ####Cuff Cutter: LESLEE HERNANDEZ ([id number])[facility] (SBHLAB)[address] Glucose [Mass/Vol] 104 mg/dL High 74-100 [facility] Comment on above: Performed By: #### L AB103, OQY920, LAB17 ####Cuff Cutter: LESLEE HERNANDEZ ([id number])[facility] (SBHLAB)[address] Potassium [Moles/Vol] 4.5 mmol/L Normal 3.5-5.1 [facility] Comment on above: Result Comment: [facility] potassium values may be up to 0.5 mmol/L lower than serum values. Performed By: #### L AB103, TVH301, LAB17 ####Cuff Cutter: LESLEE HERNANDEZ ([id number])[facility] BARBREHOBOTH MCKIN[facility] CH[facility]ALTH CARE SERVICESN (SBHLAB)[address] [place] [address] [place] Protein [Mass/Vol] 6.0 g/dL Low 6.4-8.3 [facility] Comment on above: Performed By: #### L AB103, DKW276, LAB17 ####Cuff Cutter: LESLEE HERNANDEZ ([id number])[facility] (SB[facility]AB)[address] [place] [address] [place] Sodium [Moles/Vol] 139 mmol/L Normal 136-145 [facility] Comment on above: Performed By: #### L AB103, HZG208, LAB17 ####Cuff Cutter: LESLEE HERNANDEZ ([id number])[facility] (SBHLAB)[address] Urea nitrogen [Mass/Vol] 31 mg/dL High 8-21 [facility] Comment on above: Performed By: #### L AB103, GCI684, LAB17 ####Cuff Cutter: LESLEE HERNANDEZ ([id number])[facility] [place] (SBHLAB)[address] Comprehensive metabolic 1998 panelon 07-12-2024 Albumin [Mass/Vol] 3 g/dL Low 3.5 - 5.0 g/dL [facility] ALP [Catalytic activity/Vol] 181 U/L High 40 - 150 U/L [facility] ALT [Catalytic activity/Vol] 127 U/L High NINF - 40 U/L [facility] Anion gap [Moles/Vol] 12 mmol/L 3 - 13 mmol/L [facility] AST [Catalytic activity/Vol] 63 U/L High NINF - 34 U/L [facility] Bilirubin [Mass/Vol] 2 mg/dL High NINF - 1.2 mg/dL [facility] Calcium [Mass/Vol] 8.6 mg/dL 8.4 - 10. 2 mg/dL [facility] Chloride [Moles/Vol] 107 mmol/L 98 - 10 7 mmol/L [facility] CO2 [Moles/Vol] 20 mmol/L Low 22 - 29 mmol/L [facility] Creatinine [Mass/Vol] 1.79 mg/dL High 0.72 - 1.25 mg/dL [facility] GFR/1.73 sq M.predicted (S/P/Bld) [Vol rate/Area] 46.7 mL/min Low - PINF [facility] Comment on above: Calculation based on the Chronic Kidney Disease Epidemiology Collaboration (CKD-EPI) equation refit without adjustment for race Glucose [Mass/Vol] 104 mg/dL High 74 - 100 mg/dL [facility] Interpretation and review of laboratory results Abnormal [facility] Potassium [Moles/Vol] 4.5 mmol/L 3.5 - 5.1 mmol/L [facility] Comment on above: Plasma potassium heidi ues may be up to 0.5 mmol/L lower than serum values. Protein [Mass/Vol] 6 g/dL Low 6.4 - 8.3 g/dL [facility] Sodium [Moles/Vol] 139 mmol/L 136 - 145 mmol/L [facility] Urea nitrogen [Mass/Vol] 31 mg/dL High 8 - 21 mg/dL [facility] Consulton 07-12-2024 Consult Normal [facility] ECG 12-LEADon 07-12-2024 ECG 12-LEAD IMPRESSION: Sinus tachycardia Left ventricular hypertrophy Nonspecific T abnormalities, lateral leads Borderline prolonged QT interval Compared to ECG 07/11/24 at 1831 No significant change Electronically Signed On 07-12-2024 06:02:51 EST by Chas Haddad Normal [facility] ECG 12-LEAD IMPRESSION: Sinus tachycardia LVH with secondary repolarization abnormality Borderline prolonged QT interval Compared to ECG 07/03/24 No significant change Electronically Signed On 07-12-2024 06:02:00 EST by Chas Haddad Normal [facility] ED Nursing Noteon 07-12-2024 ED Nursing Note APTT drawn by venipuncture, previous specimen also drawn by venipuncture Normal [facility] HIGH SENSITIVITY TROPONIN, S ERIAL, THIRD TESTon 07-12-2024 TROPONIN HS DELTA, SECOND TO THIRD -3 ng/L Normal <=2 [facility] Comment on above: Result Comment: A tr oponin delta greater than or equal to 15 ng/L is suggestive of acute cardiac injury. Values less than 15, see clinical guidance for ED and Inpatient algorithms. Performed By: #### L [id number], [id number] ####Cuff Cutter: LESLEE HERNANDEZ ([id number])[facility] ([facility])[address] [place] [address] TROPONIN HS, SERIAL REFLEX, TEST THREE 218 ng/L Critically high <=35 [facility] Comment on above: Performed By: #### L AB129, [id number] ####Cuff Cutter: LESLEE HERNANDEZ ([id number])[facility] ([facility])[address] [place] [address] Laboratory - Chemistry and C hemistry - challengeon 07-12-2024 Magnesium [Mass/Vol] 2.1 mg/dL 1.6 - 2 .6 mg/dL [facility] Magnesium [Mass/Vol] 2.2 mg/dL 1.6 - 2 .6 mg/dL [facility] TSH Qn 0.68 m[IU]/L [facility] MAGNESIUMon 07-12-2024 Magnesium [Mass/Vol] 2.1 mg/dL Normal 1.6-2.6 [facility] Comment on above: Result Comment: ORDE R COMMENTS:Higher values can be expected in females during menses. Performed By: #### L AB103, [id number], LAB17 ####Cuff Cutter: LESLEE HERNANDEZ ([id number])[facility] ([facility])[address] [place] [address] Magnesium [Mass/Vol] 2.2 mg/dL Normal 1.6-2.6 [facility] Comment on above: Result Comment: ORDE R COMMENTS:Higher values can be expected in females during menses. Performed By: #### L AB15, [id number] ####Cuff Cutter: LESLEE HERNANDEZ ([id number])[facility] ([facility])[address] [place] [address] Magnesium [Mass/Vol]on 07-12 Interpretation and review of laboratory results Normal [facility] Higher values can be expected in females during menses. [facility] Interpretation and review of laboratory results Normal [facility] Higher values can be expected in females during menses. [facility] NT PRO BNPon 07-12-2024 Natriuretic peptide B (Bld) [Mass/Vol] 60512 pg/mL High <125 [facility] Comment on above: Performed By: #### L AB103, [id number], LAB17 ####Cuff Cutter: LESLEE HERNANDEZ ([id number])[facility] [place] [address] Natriuretic peptide B [Mass/ Vol]on 07-12-2024 Interpretation and review of laboratory results Abnormal [facility] Natriuretic peptide B (Bld) [Mass/Vol] 46583 pg/mL High NINF - 125 pg/mL [facility] No Panel Informationon 07-12 [facility] P [place] 58 degrees [facility] [place] Interval 142 ms [facility] QRS [place] -16 degrees [facility] QRSD Interval 93 ms [facility] QT Interval 364 ms [facility] QTC Interval 488 ms [facility] [employer] T Wave [place] 103 degrees [facility] Sinus tachycardia Left ventricular hypertrophy Nonspecific T abnormalities, lateral leads Borderline prolonged QT interval Compared to ECG 07/11/24 at 1831 No significant change Electronically Signed On 07-12-2024 06:02:51 EST by Chas Kaufman G, D O - 07/12/2024 IMPRESSION: Sinus tachycardia Left ventricular hypertrophy Nonspecific T abnormalities, lateral leads Borderline prolonged QT interval Compared to ECG 07/11/24 at 1831 No significant change Electronically Signed On 07-12-2024 06:02:51 EST by Chasmeghan Haddad [facility] Sinus tachycardia LVH with secondary repolarization abnormality Borderline prolonged QT interval Compared to ECG 07/03/24 No significant change Electronically Signed On 07-12-2024 06:02:00 EST by Chas Haddad CV Chas Arellano G, D O - 07/12/2024 IMPRESSION: Sinus tachycardia LVH with secondary repolarization abnormality Borderline prolonged QT interval Compared to ECG 07/03/24 No significant change Electronically Signed On 07-12-2024 06:02:00 EST by Chas Haddad [facility] Interpretation and review of laboratory results Abnormal [facility] Troponin HS Delta, Second to Third -3 ng/L NINF - 2 ng/L [facility] Comment on above: A troponin delta gre ater than or equal to 15 ng/L is suggestive of acute cardiac injury. Values less than 15, see clinical guidance for ED and Inpatient algorithms. Troponin HS, Serial Third 218 ng/L Critically high NINF - 35 ng/L [facility] No Panel InformationOrdered By: Chas Haddad on 07-12-2024 P [place] 52 degrees [facility] [employer] Work Phone: [place] Interval 147 ms [facility] Work Phone: QRS [place] -30 degrees [facility] Work Phone: QRSD Interval 93 ms [facility] [email or web address] Work Phone: QT Interval 355 ms [facility] Work Phone: QTC Interval 480 ms [employer] Work Phone: T Wave [place] 127 degrees [employer] Work Phone: [facility] Work Phone: Nursing Noteon 07-12-2024 Nursing Note Patient does not wan t to take his sodium bicarb until 2pm. Normal [facility] Progress Noteon 07-12-2024 Progress Note Normal [facility] THYROID STIMULATING HORMONEo n 07-12-2024 THYROID STIMULATING HORMONE 0.68 uIU/mL Normal 0.35-4.94 [facility] Comment on above: Performed By: #### L AB129, [id number] ####Cuff Cutter: LESLEE HERNANDEZ ([id number])[facility] ([facility])[address] [place] [address] TSH Qnon 07-12-2024 Interpretation and review of laboratory results Normal [facility] Vital signson 07-12-2024 Heart rate 108 /min bpm [facility] Vital signsOrdered By: Clementina Haddad on 07-12-2024 Heart rate 110 /min bpm [facility] [employer] Work Phone: aPTT Coag (Bld) [Time]on aPTT Coag (PPP) [Time] 41.9 s High 20.0 - 30.5 s [facility] Interpretation and review of laboratory results Abnormal [facility] NOTE: The therapeuti c time for Heparin anticoagulation, based on Xa activity inhibition, is an APTT of 46-80 seconds. [facility] aPTT Coag (PPP) [Time] 59.4 s High 20.0 - 30.5 s [facility] Interpretation and review of laboratory results Abnormal [facility] NOTE: The therapeuti c time for Heparin anticoagulation, based on Xa activity inhibition, is an APTT of 46-80 seconds. [facility] APTTon 07-11-2024 aPTT Coag (Bld) [Time] 24.2 s Normal 20.0-30.5 [facility] Comment on above: Result Comment: ALEJANDRO R COMMENTS:NOTE: The therapeutic time for Heparin anticoagulation, based on Xa activity inhibition, is an APTT of 46-80 seconds. Performed By: #### L [id number] ####Cuff Cutter: LESLEE HERNANDEZ ([id number])[facility] ([facility])[address] BASIC METABOLIC PANELon 06-30 Anion gap [Moles/Vol] 15 mmol/L High 3-13 [facility] Comment on above: Performed By: #### L AB106, LAB15, [id number], LAB20 ####Cuff Cutter: LESLEE HERNANDEZ ([id number])[facility] ([facility])[address] Calcium [Mass/Vol] 8.8 mg/dL Normal 8.4-10.2 [facility] Comment on above: Performed By: #### L AB106, LAB15, [id number], LAB20 ####Cuff Cutter: LESLEE HERNANDEZ ([id number])[facility] ([facility])[address] Chloride [Moles/Vol] 106 mmol/L Normal 98-107 [facility] Comment on above: Performed By: #### L AB106, LAB15, [id number], LAB20 ####Cuff Cutter: LESLEE HERNANDEZ ([id number])[facility] ([facility])[address] CO2 [Moles/Vol] 20 mmol/L Low 22-29 [facility] Comment on above: Performed By: #### L AB106, LAB15, [id number], LAB20 ####Cuff Cutter: LESLEE HERNANDEZ ([id number])[facility] ([facility])[address] Creatinine [Mass/Vol] 1.70 mg/dL High 0.72-1.25 [facility] Comment on above: Performed By: #### L AB106, LAB15, [id number], LAB20 ####Cuff Cutter: LESLEE HERNANDEZ ([id number])[facility] ([facility])[address] GLOMERULAR FILTRATION RATE ML/MIN/1.73 SQ M.PREDICTED 49.7 mL/min/1.73m*2 Low >60.0 [facility] Comment on above: Result Comment: Calc ulation based on the Chronic Kidney Disease Epidemiology Collaboration (CKD-EPI) equation refit without adjustment for race Performed By: #### L AB106, LAB15, [id number], LAB20 ####Cuff Cutter: LESLEE HERNANDEZ ([id number])[facility] ([facility])[address] Glucose [Mass/Vol] 97 mg/dL Normal 74-100 [facility] Comment on above: Performed By: #### L AB106, LAB15, [id number], LAB20 ####Cuff Cutter: LESLEE HERNANDEZ ([id number])[facility] ([facility])[address] Potassium [Moles/Vol] 4.6 mmol/L Normal 3.5-5.1 [facility] Comment on above: Result Comment: [facility] potassium values may be up to 0.5 mmol/L lower than serum values. Performed By: #### L AB106, LAB15, [id number], LAB20 ####Cuff Cutter: LESLEE HERNANDEZ ([id number])[facility] ([facility])[address] [place] [address] [place] Sodium [Moles/Vol] 141 mmol/L Normal 136-145 [facility] Comment on above: Performed By: #### L AB106, LAB15, [id number], LAB20 ####Cuff Cutter: LESLEE HERNANDEZ ([id number])[facility] ([facility])[address] [place] [address] [place] Urea nitrogen [Mass/Vol] 30 mg/dL High 8-21 [facility] Comment on above: Performed By: #### L AB106, LAB15, [id number], LAB20 ####Cuff Cutter: LESLEE HERNANDEZ ([id number])[facility] ([facility])[address] [place] [id number] [facility] Basic metabolic 1998 panelon 07-11-2024 Anion gap [Moles/Vol] 15 mmol/L High 3 - 13 mmol/L [facility] Calcium [Mass/Vol] 8.8 mg/dL 8.4 - 10. 2 mg/dL [facility] Chloride [Moles/Vol] 106 mmol/L 98 - 10 7 mmol/L [facility] CO2 [Moles/Vol] 20 mmol/L Low 22 - 29 mmol/L [facility] Creatinine [Mass/Vol] 1.7 mg/dL High 0.72 - 1.25 mg/dL [facility] GFR/1.73 sq M.predicted (S/P/Bld) [Vol rate/Area] 49.7 mL/min Low - PINF [facility] Comment on above: Calculation based on the Chronic Kidney Disease Epidemiology Collaboration (CKD-EPI) equation refit without adjustment for race Glucose [Mass/Vol] 97 mg/dL 74 - 100 mg/dL [facility] Potassium [Moles/Vol] 4.6 mmol/L 3.5 - 5.1 mmol/L [facility] Comment on above: Plasma potassium heidi ues may be up to 0.5 mmol/L lower than serum values. Sodium [Moles/Vol] 141 mmol/L 136 - 145 mmol/L [facility] Urea nitrogen [Mass/Vol] 30 mg/dL High 8 - 21 mg/dL [facility] CBC W Auto Differential pane l (Bld)on 07-11-2024 Basophils (Bld) [#/Vol] 0 10*3/uL 0.0 - 0.2 10*3/uL [facility] Basophils/100 WBC (Bld) 0.4 % 0.0 - 2.0 % [facility] Eosinophils (Bld) [#/Vol] 0 10*3/uL 0.0 - 0.5 10*3/uL [facility] Eosinophils/100 WBC (Bld) 0.2 % 0.0 - 6.0 % [facility] Erythrocyte distribution width (RBC) [Ratio] 14 % 11.5 - 15.0 % [facility] Hematocrit (Bld) [Volume fraction] 48.4 % 40.0 - 52.0 % [facility] Hemoglobin (Bld) [Mass/Vol] 15.5 g/dL 13.0 - 18.0 g/dL [facility] Immature granulocytes (Bld) [#/Vol] 0 10*3/uL NINF - 0.1 10*3/uL [facility] Immature granulocytes/100 WBC (Bld) 0.2 % 0.0 - 2.0 % [facility] Interpretation and review of laboratory results Abnormal [facility] Lymphocytes (Bld) [#/Vol] 2.4 10*3/uL 1.0 - 4.3 10*3/uL [facility] Lymphocytes/100 WBC (Bld) 28.9 % 15.0 - 45.0 % [facility] MCH (RBC) [Entitic mass] 32.9 pg 26.0 - 34.0 pg [facility] MCHC (RBC) [Mass/Vol] 32 % 30.5 - 36.0 % [facility] MCV (RBC) [Entitic vol] 102.8 fL High 77.0 - 99.0 fL [facility] Monocytes (Bld) [#/Vol] 0.6 10*3/uL 0.0 - 0.9 10*3/uL [facility] Monocytes/100 WBC (Bld) 6.5 % 5.0 - 13.0 % [facility] Neutrophils (Bld) [#/Vol] 5.4 10*3/uL 1.8 - 7.5 10*3/uL [facility] Neutrophils/100 WBC (Bld) 63.8 % 38.0 - 82.0 % [facility] Nucleated RBC/100 WBC (Bld) [Ratio] 0 % [facility] Platelet mean volume (Bld) [Entitic vol] 9.8 fL 9.0 - 12.7 fL [facility] Platelets (Bld) [#/Vol] 270 10*3/uL 140 - 440 10*3/uL [facility] RBC (Bld) [#/Vol] 4.71 10*6/uL 4.40 - 5.9 0 10*6/uL [facility] WBC (Bld) [#/Vol] 8.4 10*3/uL 3.6 - 10.7 10*3/uL [facility] CBC WITH AUTO DIFFERENTIALon 07-11-2024 Basophils (Bld) [#/Vol] 0.0 10*3/uL Normal 0.0-0.2 [facility] Comment on above: Performed By: #### L [id number] ####Cuff Cutter: LESLEE HERNANDEZ ([id number])[facility] [place] ([facility])[address] Basophils/100 WBC (Bld) 0.4 % Normal 0.0-2.0 [facility] Comment on above: Performed By: #### L [id number] ####Cuff Cutter: LESLEE HERNANDEZ ([id number])[facility] [place] ([facility])[address] Eosinophils (Bld) [#/Vol] 0.0 10*3/uL Normal 0.0-0.5 [facility] Comment on above: Performed By: #### L [id number] ####Cuff Cutter: LESLEE TURKTYRONE ([id number])[facility])[address] [place] [address] Eosinophils/100 WBC (Bld) 0.2 % Normal 0.0-6.0 [facility] Comment on above: Performed By: #### L [id number] ####Cuff Cutter: LESLEE HERNANDEZ ([id number])[facility] ([facility])[address] [place] [address] Erythrocyte distribution width (RBC) [Ratio] 14.0 % Normal 11.5-15.0 [facility] Comment on above: Performed By: #### L [id number] ####Cuff Cutter: LESLEE HERNANDEZ ([id number])[facility] ([facility])[address] [place] [address] Hematocrit (Bld) [Volume fraction] 48.4 % Normal 40.0-52.0 [facility] Comment on above: Performed By: #### L [id number] ####Cuff Cutter: LESLEE HERNANDEZ ([id number])[facility] ([facility])[address] [place] [address] Hemoglobin (Bld) [Mass/Vol] 15.5 g/dL Normal 13.0-18.0 [facility] Comment on above: Performed By: #### L [id number] ####Cuff Cutter: LESLEE HERNANDEZ ([id number])[facility])[address] [place] [address] IMMATURE GRANS % 0.2 % Normal 0.0-2.0 [facility] Comment on above: Performed By: #### L [id number] ####Cuff Cutter: LESLEE HERNANDEZ ([id number])[facility])[address] [place] [address] IMMATURE GRANS ABSOLUTE 0.0 10*3/uL Normal <0.1 [facility] Comment on above: Performed By: #### L [id number] ####Cuff Cutter: LESLEE HERNANDEZ ([id number])[facility] ([facility])[address] [place] [address] Lymphocytes (Bld) [#/Vol] 2.4 10*3/uL Normal 1.0-4.3 [facility] Comment on above: Performed By: #### L [id number] ####Cuff Cutter: LESLEE HERNANDEZ ([id number])[facility] ([facility])[address] [place] [address] Lymphocytes/100 WBC (Bld) 28.9 % Normal 15.0-45.0 [facility] Comment on above: Performed By: #### L [id number] ####Cuff Cutter: LESLEE HERNANDEZ ([id number])[facility] [place] [address] MCH (RBC) [Entitic mass] 32.9 pg Normal 26.0-34.0 [facility] Comment on above: Performed By: #### L [id number] ####Cuff Cutter: LESLEE HERNANDEZ ([id number])[facility])[address] [place] [address] MCHC 32.0 % Normal 30.5-36.0 [facility] Comment on above: Performed By: #### L [id number] ####Cuff Cutter: LESLEE MCNEILLNinoskaTYRONE ([id number])[facility] ([facility])[address] MCV (RBC) [Entitic vol] 102.8 fL High 77.0-99.0 [facility] Comment on above: Performed By: #### L [id number] ####Cuff Cutter: LESLEE MARY ([id number])[facility] [place] ([facility])[address] Monocytes (Bld) [#/Vol] 0.6 10*3/uL Normal 0.0-0.9 [facility] Comment on above: Performed By: #### L [id number] ####Cuff Cutter: LESLEE MARY ([id number])[facility] [place] ([facility])[address] Monocytes/100 WBC (Bld) 6.5 % Normal 5.0-13.0 [facility] Comment on above: Performed By: #### L [id number] ####Cuff Cutter: LESLEE MARY ([id number])[facility] [place] ([facility])[address] NEUTROPHILS ABSOLUTE 5.4 10*3/uL Normal 1.8-7.5 [facility] Comment on above: Performed By: #### L [id number] ####Cuff Cutter: LESLEE TURKTYRONE ([id number])[facility] [place] ([facility])[address] Neutrophils/100 WBC (Bld) 63.8 % Normal 38.0-82.0 [facility] Comment on above: Performed By: #### L [id number] ####Cuff Cutter: LESLEE TURKTYRONE ([id number])[facility] [place] ([facility])[address] NRBC 0.0 /100 WBCs Normal 0.0-2.0 [facility] Comment on above: Performed By: #### L [id number] ####Cuff Cutter: LESLEE HERNANDEZ ([id number])[facility] ([facility])[address] Platelet mean volume (Bld) [Entitic vol] 9.8 fL Normal 9.0-12.7 [facility] Comment on above: Performed By: #### L [id number] ####Cuff Cutter: LESLEE HERNANDEZ ([id number])[facility] ([facility])[address] Platelets (Bld) [#/Vol] 270 10*3/uL Normal 140-440 [facility] Comment on above: Performed By: #### L [id number] ####Cuff Cutter: LESLEE HERNANDEZ ([id number])[facility] ([facility])[address] [place] [address] RBC (Bld) [#/Vol] 4.71 10*6/uL Normal 4.40-5.90 [facility] Comment on above: Performed By: #### L [id number] ####Cuff Cutter: LESLEE HERNANDEZ ([id number])[facility] ([facility])[address] WBC (Bld) [#/Vol] 8.4 10*3/uL Normal 3.6-10.7 [facility] Comment on above: Performed By: #### L [id number] ####Cuff Cutter: LESLEE HERNANDEZ ([id number])[facility] ([facility])[address] ABDOMEN PELVIS W CONTRAST on 07-11-2024 CT ABDOMEN PELVIS W CONTRAST Normal [facility] CT Abdomen and Pelvis W cont rast [place] 07-11-2024 Trace left pleural effusion. Resolving right lung base infiltrates. Persistent small volume of intra-abdominal and intrapelvic ascites with edema throughout the mesentery. Hepatic steatosis. Colonic diverticulosis. Additional findings, as above. Report Dictated on Electronically Signed By: Kaitlin Goldsmith MD Electronically Signed Date/Time: 07/11/2024 10:46 PM EST [facility]IOLOG[facility] Patient Name: CARLO MEDINA : 1980 Exam Date/Time: 07/11/2024 21:05 Procedure: CT ABDOMEN PELVIS W CONTRAST Ordering Provider: KENNY J Reason For Exam: abdominal pain CT ABDOMEN AND PELVIS Indication: 44-year-old male; abdominal pain Scan Parameters: Multiple axial CT images were obtained of the abdomen and pelvis. Coronal and sagittal reconstructions were reviewed as well. ALARA protocol. Dose reduction was employed with automated exposure control. Contrast: 75 mL of Isovue-370 IV contrast Comparison: CT abdomen and pelvis 07/03/2024 without IV contrast; CT abdomen and pelvis 06/14/2024 without IV contrast FINDINGS: Trace left pleural effusion present. Resolving right lung base infiltrates. The heart remains enlarged with trace pericardial fluid. There is reflux of contrast into the hepatic veins suggestive of right heart dysfunction. There are no atherosclerotic calcifications along the aorta. A few endplate degenerative changes are present with osteophytes. 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 A small volume of intra-abdominal and intrapelvic ascites appears similar to prior exam with edema throughout the mesentery. There is diffuse fatty infiltration of the liver. The gallbladder, pancreas, and spleen are within normal limits. Bilateral adrenal gland hyperplasia noted. The kidneys symmetrically enhance without hydronephrosis. The kidneys are small measuring 8-9 cm. The bladder contour is normal. The prostate gland is not enlarged. Multiple sigmoid colon and descending colon diverticuli are present. The appendix is normal in the right lower quadrant. A small sliding-type hiatal hernia is present. There is no CT evidence for bowel obstruction. A small fatty umbilical hernia is present at the midline. [facility] Kaitlin Goldsmith MD - 07/11/2024 Patient Name: CARLO MEDINA : 1980 Exam Date/Time: 07/11/2024 21:05 Procedure: CT ABDOMEN PELVIS W CONTRAST Ordering Provider: KENNY J Reason For Exam: abdominal pain CT ABDOMEN AND PELVIS Indication: 44-year-old male; abdominal pain Scan Parameters: Multiple axial CT images were obtained of the abdomen and pelvis. Coronal and sagittal reconstructions were reviewed as well. ALARA protocol. Dose reduction was employed with automated exposure control. Contrast: 75 mL of Isovue-370 IV contrast Comparison: CT abdomen and pelvis 07/03/2024 without IV contrast; CT abdomen and pelvis 06/14/2024 without IV contrast FINDINGS: Trace left pleural effusion present. Resolving right lung base infiltrates. The heart remains enlarged with trace pericardial fluid. There is reflux of contrast into the hepatic veins suggestive of right heart dysfunction. There are no atherosclerotic calcifications along the aorta. A few endplate degenerative changes are present with osteophytes. 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 A small volume of intra-abdominal and intrapelvic ascites appears similar to prior exam with edema throughout the mesentery. There is diffuse fatty infiltration of the liver. The gallbladder, pancreas, and spleen are within normal limits. Bilateral adrenal gland hyperplasia noted. The kidneys symmetrically enhance without hydronephrosis. The kidneys are small measuring 8-9 cm. The bladder contour is normal. The prostate gland is not enlarged. Multiple sigmoid colon and descending colon diverticuli are present. The appendix is normal in the right lower quadrant. A small sliding-type hiatal hernia is present. There is no CT evidence for bowel obstruction. A small fatty umbilical hernia is present at the midline. IMPRESSION: Trace left pleural effusion. Resolving right lung base infiltrates. Persistent small volume of intra-abdominal and intrapelvic ascites with edema throughout the mesentery. Hepatic steatosis. Colonic diverticulosis. Additional findings, as above. Report Dictated on Electronically Signed By: Kaitlin Goldsmith MD Electronically Signed Date/Time: 07/11/2024 10:46 PM EST [facility] Radiology Study observation (narrative) [facility] ED Nursing Noteon 07-11-2024 ED Nursing Note TANK ERECTOR RN called for USIV Normal [facility] ED Nursing Note Patient arrives to e r with complaints of upper abd pain. States he was here last week and had to get diuretics, he had fluid retention. Endorses similar sx and increased weight. Pt weight Friday was 170lbs, today 174lbs. Denies any SOB Normal [facility] ED Provider Noteon ED Provider Note Normal [facility] HEPATIC FUNCTION PANELon Albumin [Mass/Vol] 3.3 g/dL Low 3.5-5.0 [facility] Comment on above: Performed By: #### L AB106, LAB15, [id number], LAB20 ####Cuff Cutter: LESLEE HERNANDEZ ([id number])[facility] [place] ([facility])[address] [place] [address] [place] ALP [Catalytic activity/Vol] 213 U/L High 40-150 [facility] Comment on above: Performed By: #### L AB106, LAB15, [id number], LAB20 ####Cuff Cutter: LESLEE HERNANDEZ ([id number])[facility] ([facility])[address] ALT [Catalytic activity/Vol] 134 U/L High <40 [facility] Comment on above: Performed By: #### L AB106, LAB15, [id number], LAB20 ####Cuff Cutter: LESLEE HERNANDEZ ([id number])[facility] [place] ([facility])[address] [place] [address] [place] AST [Catalytic activity/Vol] 75 U/L High <34 [facility] Comment on above: Performed By: #### L AB106, LAB15, [id number], LAB20 ####Cuff Cutter: LESLEE HERNANDEZ ([id number])[facility] [place] ([facility])[address] [place] [address] [place] Bilirubin [Mass/Vol] 2.2 mg/dL High <1.2 [facility] Comment on above: Performed By: #### L AB106, LAB15, [id number], LAB20 ####Cuff Cutter: LESLEE HERNANDEZ ([id number])[facility] [place] ([facility])[address] [place] [address] [place] Bilirubin.indirect [Mass/Vol] 1.0 mg/dL High <0.5 [facility] Comment on above: Performed By: #### L AB106, LAB15, [id number], LAB20 ####Cuff Cutter: LESLEE HERNANDEZ ([id number])[facility] Protein [Mass/Vol] 6.4 g/dL Normal 6.4-8.3 [facility] Comment on above: Result Comment: Seru m protein values are higher than plasma values. Samples from recumbent persons are lower by up to 0.5 g/dL as compared to ambulatory persons. After 60 years values are lower by up to 0.2 g/dL. Performed By: #### L AB106, LAB15, [id number], LAB20 ####Cuff Cutter: LESLEE HERNANDEZ ([phone])[facility] ([facility])[address] [place] [address] [place] HIGH SENSITIVITY TROPONIN, S ERIAL BASELINEon 07-11-2024 TROPONIN HIGH SENSITIVITY BASELINE 218 ng/L Critically high <=35 [facility] Comment on above: Performed By: #### L AB106, LAB15, [id number], LAB20 ####Cuff Cutter: LESLEE HERNANDEZ ([id number])[facility] ([facility])[address] HIGH SENSITIVITY TROPONIN, S ERIAL, SECOND TESTon 07-11-2024 TROPONIN HS DELTA, BASELINE TO SECOND 3 ng/L Normal <=2 [facility] Comment on above: Result Comment: A tr oponin delta greater than or equal to 15 ng/L is significant for acute cardiac injury.Values less than 15 but greater than 2 are an intermediate change requiring a 3rd serial troponin to be drawn.Values less than or equal to 2 indicate acute cardiac injury is not likely, see external algorithms for further clinical guidance. Performed By: #### L [id number] ####Cuff Cutter: LESLEE HERNANDEZ ([id number])[facility] ([facility])[address] TROPONIN HS, SERIAL REFLEX, TEST TWO 221 ng/L Critically high <=35 [facility] Comment on above: Performed By: #### L [id number] ####Cuff Cutter: LESLEE HERNANDEZ ([id number])[facility] ([facility])[address] Hepatic function 2000 panelo n 07-11-2024 Albumin [Mass/Vol] 3.3 g/dL Low 3.5 - 5.0 g/dL [facility] ALP [Catalytic activity/Vol] 213 U/L High 40 - 150 U/L [facility] ALT [Catalytic activity/Vol] 134 U/L High NINF - 40 U/L [facility] AST [Catalytic activity/Vol] 75 U/L High NINF - 34 U/L [facility] Bilirubin [Mass/Vol] 2.2 mg/dL High NINF - 1.2 mg/dL [facility] Bilirubin.conjugated [Mass/Vol] 1 mg/dL High NINF - 0.5 mg/dL [facility] Protein [Mass/Vol] 6.4 g/dL 6.4 - 8.3 g/dL [facility] Comment on above: Serum protein values are higher than plasma values. Samples from recumbent persons are lower by up to 0.5 g/dL as compared to ambulatory persons. After 60 years values are lower by up to 0.2 g/dL. NT PRO BNPon 07-11-2024 Natriuretic peptide B (Bld) [Mass/Vol] 47849 pg/mL High <125 [facility] Comment on above: Performed By: #### L AB106, LAB15, [id number], LAB20 ####Cuff Cutter: LESLEE HERNANDEZ ([id number])[facility] ([facility])[address] [place] [address] Natriuretic peptide B [Mass/ Vol]on 07-11-2024 Interpretation and review of laboratory results Abnormal [facility] Natriuretic peptide B (Bld) [Mass/Vol] 00152 pg/mL High NINF - 125 pg/mL [facility] No Panel InformationOrdered By: [place] Ambrosio on 07-11-2024 Interpretation and review of laboratory results Abnormal [facility] Troponin HS Delta, Baseline to Second 3 ng/L NINF - 2 ng/L [facility] Comment on above: A troponin delta gre ater than or equal to 15 ng/L is significant for acute cardiac injury. Values less than 15 but greater than 2 are an intermediate change requiring a 3rd serial troponin to be drawn. Values less than or equal to 2 indicate acute cardiac injury is not likely, see external algorithms for further clinical guidance. Troponin HS, Serial Second 221 ng/L Critically high NINF - 35 ng/L [facility] No Panel InformationOrdered By: Fabiola Singh on 07-11-2024 Interpretation and review of laboratory results Abnormal [facility] Troponin HS, Serial Baseline 218 ng/L Critically high NINF - 35 ng/L [facility] No Panel Informationon 07-11 Interpretation and review of laboratory results Abnormal [facility] XR Chest Single viewon 07-11 Cardiomegaly. No confluent consolidation. Report Dictated on Electronically Signed By: Kaitlin Goldsmith MD Electronically Signed Date/Time: 07/11/2024 6:52 PM EST [facility] Patient Name: CARLO MEDINA : 1980 Exam Date/Time: 07/11/2024 18:52 Procedure: XR CHEST 1 VIEW Ordering Provider: KENNY J Reason For Exam: CHF, SOB INDICATION: Shortness of breath. VIEWS: Chest portable AP upright-on image COMPARISON: 07/03/2024 FINDINGS: The trachea is midline. The cardiac silhouette is enlarged. The costophrenic angles are sharp. There is no confluent consolidation. [facility] Kaitlin Goldsmith MD - 07/11/2024 Patient Name: CARLO MEDINA : 1980 Exam Date/Time: 07/11/2024 18:52 Procedure: XR CHEST 1 VIEW Ordering Provider: KENNY J Reason For Exam: CHF, SOB INDICATION: Shortness of breath. VIEWS: Chest portable AP upright-on image COMPARISON: 07/03/2024 FINDINGS: The trachea is midline. The cardiac silhouette is enlarged. The costophrenic angles are sharp. There is no confluent consolidation. IMPRESSION: Cardiomegaly. No confluent consolidation. Report Dictated on Electronically Signed By: Kaitlin Goldsmith MD Electronically Signed Date/Time: 07/11/2024 6:52 PM EST [facility] Radiology Study observation (narrative) [facility] XR Chest Single viewOrdered By: Kaitlin Goldsmtih on 07-11-2024 [facility] Work Phone: aPTT Coag (Bld) [Time]on aPTT Coag (PPP) [Time] 24.2 s 20.0 - 30.5 s [facility] Interpretation and review of laboratory results Normal [facility] NOTE: The therapeuti c time for Heparin anticoagulation, based on Xa activity inhibition, is an APTT of 46-80 seconds. [facility] ECG 12 leadon 07-07-2024 Sinus Tachycardia -Left atrial enlargement. Voltage criteria for LVH (S(V1)+R(V6) exceeds 3.50 mV). -Nonspecific ST depression + Nonspecific T-abnormality -Seen with left ventricular hypertrophy (strain). ABNORMAL [facility] Progress Noteon 07-07-2024 Progress Note Normal [facility] [id number] 07-05-2024 [id number] Normal [facility] Nursing Noteon 07-05-2024 Nursing Note Normal [facility] Progress Noteon 07-05-2024 Progress Note Nutrition rescreen completed. Chart reviewed. Patient to be monitored and followed by the diet industrial engineering technician. Normal [facility] Progress Note Normal [facility] Progress Note Normal [facility] BASIC METABOLIC PANELon Anion gap [Moles/Vol] 6 mmol/L Normal 3-13 [facility] Comment on above: Performed By: #### L AB15, [id number] ####Cuff Cutter: NICOLE BOWERS ([id number])[address] Calcium [Mass/Vol] 8.2 mg/dL Low 8.4-10.2 [facility] Comment on above: Performed By: #### L AB15, [id number] ####Cuff Cutter: NICOLE BOWERS ([id number])[facility])[address] [place] [address] [place] Chloride [Moles/Vol] 103 mmol/L Normal 98-107 [facility] Comment on above: Performed By: #### L AB15, [id number] ####Cuff Cutter: NICOLE BOWERS ([id number])[facility])[address] [place] [address] CO2 [Moles/Vol] 25 mmol/L Normal 22-29 [facility] Comment on above: Performed By: #### L AB15, [id number] ####Cuff Cutter: NICOLE BOWERS ([id number])[facility])[address] [place] [address] Creatinine [Mass/Vol] 2.18 mg/dL High 0.72-1.25 [facility] Comment on above: Performed By: #### L AB15, [id number] ####Cuff Cutter: NICOLE BOWERS ([id number])[facility] ([facility])[address] [place] [address] GLOMERULAR FILTRATION RATE ML/MIN/1.73 SQ M.PREDICTED 36.9 mL/min/1.73m*2 Low >60.0 [facility] Comment on above: Result Comment: Calc ulation based on the Chronic Kidney Disease Epidemiology Collaboration (CKD-EPI) equation refit without adjustment for race Performed By: #### L AB15, [id number] ####Cuff Cutter: NICOLE BOWERS ([id number])[facility] ([facility])[address] [place] [address] Glucose [Mass/Vol] 109 mg/dL High 74-100 [facility] Comment on above: Performed By: #### L AB15, [id number] ####Cuff Cutter: NICOLE BOWERS ([id number])[facility])[address] [place] [address] Potassium [Moles/Vol] 3.5 mmol/L Normal 3.5-5.1 [facility] Comment on above: Result Comment: [facility] potassium values may be up to 0.5 mmol/L lower than serum values. Performed By: #### L AB15, [id number] ####Cuff Cutter: NICOLE BOWERS ([id number])[facility])[address] [place] [address] Sodium [Moles/Vol] 134 mmol/L Low 136-145 [facility] Comment on above: Performed By: #### L AB15, [id number] ####Cuff Cutter: NICOLE BOWERS ([id number])[facility])[address] [place] [address] Urea nitrogen [Mass/Vol] 36 mg/dL High 8-21 [facility] Comment on above: Performed By: #### L AB15, [id number] ####Cuff Cutter: NICOLE BOWERS ([id number])[address] Basic metabolic 1998 panelon 07-04-2024 Anion gap [Moles/Vol] 6 mmol/L 3 - 13 mmol/L [facility] Calcium [Mass/Vol] 8.2 mg/dL Low 8.4 - 10. 2 mg/dL [facility] Chloride [Moles/Vol] 103 mmol/L 98 - 10 7 mmol/L [facility] CO2 [Moles/Vol] 25 mmol/L 22 - 29 mmol/L [facility] Creatinine [Mass/Vol] 2.18 mg/dL High 0.72 - 1.25 mg/dL [facility] GFR/1.73 sq M.predicted (S/P/Bld) [Vol rate/Area] 36.9 mL/min Low - PINF [facility] Comment on above: Calculation based on the Chronic Kidney Disease Epidemiology Collaboration (CKD-EPI) equation refit without adjustment for race Glucose [Mass/Vol] 109 mg/dL High 74 - 100 mg/dL [facility] Interpretation and review of laboratory results Abnormal [facility] Potassium [Moles/Vol] 3.5 mmol/L 3.5 - 5.1 mmol/L [facility] Comment on above: Plasma potassium heidi ues may be up to 0.5 mmol/L lower than serum values. Sodium [Moles/Vol] 134 mmol/L Low 136 - 145 mmol/L [facility] Urea nitrogen [Mass/Vol] 36 mg/dL High 8 - 21 mg/dL [facility] CBC W Auto Differential pane l (Bld)Ordered By: Ragini Weinberg on 07-04-2024 Basophils (Bld) [#/Vol] 0 10*3/uL 0.0 - 0.2 10*3/uL [facility] Basophils/100 WBC (Bld) 0.3 % 0.0 - 2.0 % [facility] Eosinophils (Bld) [#/Vol] 0 10*3/uL 0.0 - 0.5 10*3/uL [facility] Eosinophils/100 WBC (Bld) 0.5 % 0.0 - 6.0 % [facility] Erythrocyte distribution width (RBC) [Ratio] 14.3 % 11.5 - 15.0 % [facility] Hematocrit (Bld) [Volume fraction] 45.1 % 40.0 - 52.0 % [facility] Hemoglobin (Bld) [Mass/Vol] 14.3 g/dL 13.0 - 18.0 g/dL [facility] Immature granulocytes (Bld) [#/Vol] 0 10*3/uL NINF - 0.1 10*3/uL [facility] Immature granulocytes/100 WBC (Bld) 0.5 % 0.0 - 2.0 % [facility] Interpretation and review of laboratory results Abnormal [facility] Lymphocytes (Bld) [#/Vol] 2.7 10*3/uL 1.0 - 4.3 10*3/uL [facility] Lymphocytes/100 WBC (Bld) 31 % 15.0 - 45.0 % [facility] MCH (RBC) [Entitic mass] 32.9 pg 26.0 - 34.0 pg [facility] MCHC (RBC) [Mass/Vol] 31.7 % 30.5 - 36.0 % [facility] MCV (RBC) [Entitic vol] 103.9 fL High 77.0 - 99.0 fL [facility] Monocytes (Bld) [#/Vol] 0.8 10*3/uL 0.0 - 0.9 10*3/uL [facility] Monocytes/100 WBC (Bld) 8.8 % 5.0 - 13.0 % [facility] Neutrophils (Bld) [#/Vol] 5.1 10*3/uL 1.8 - 7.5 10*3/uL [facility] Neutrophils/100 WBC (Bld) 58.9 % 38.0 - 82.0 % [facility] Nucleated RBC/100 WBC (Bld) [Ratio] 0.2 % [facility] Platelet mean volume (Bld) [Entitic vol] 10.7 fL 9.0 - 12.7 fL [facility] Platelets (Bld) [#/Vol] 239 10*3/uL 140 - 440 10*3/uL [facility] RBC (Bld) [#/Vol] 4.34 10*6/uL Low 4.40 - 5.9 0 10*6/uL [facility] WBC (Bld) [#/Vol] 8.6 10*3/uL 3.6 - 10.7 10*3/uL [facility] CBC WITH AUTO DIFFERENTIALon 07-04-2024 Basophils (Bld) [#/Vol] 0.0 10*3/uL Normal 0.0-0.2 [facility] Comment on above: Performed By: #### L [id number] ####Cuff Cutter: NICOLE BOWERS ([id number])[facility])[address] [place] [address] Basophils/100 WBC (Bld) 0.3 % Normal 0.0-2.0 [facility] Comment on above: Performed By: #### L [id number] ####Cuff Cutter: NICOLE BOWERS ([id number])[facility])[address] [place] [address] Eosinophils (Bld) [#/Vol] 0.0 10*3/uL Normal 0.0-0.5 [facility] Comment on above: Performed By: #### L [id number] ####Cuff Cutter: NICOLE BOWERS ([id number])[facility])[address] [place] [address] [place] Eosinophils/100 WBC (Bld) 0.5 % Normal 0.0-6.0 [facility] Comment on above: Performed By: #### L [id number] ####Cuff Cutter: NICOLE [id number])[facility] Erythrocyte distribution width (RBC) [Ratio] 14.3 % Normal 11.5-15.0 [facility] Comment on above: Performed By: #### L [id number] ####Cuff Cutter: NICOLE BOWERS ([id number])[facility])[address] [place] [address] Hematocrit (Bld) [Volume fraction] 45.1 % Normal 40.0-52.0 [facility] Comment on above: Performed By: #### L [id number] ####Cuff Cutter: NICOLE BOWERS ([id number])[address] Hemoglobin (Bld) [Mass/Vol] 14.3 g/dL Normal 13.0-18.0 [facility] Comment on above: Performed By: #### L [id number] ####Cuff Cutter: NICOLE BOWERS ([id number])[facility])[address] [place] [address] IMMATURE GRANS % 0.5 % Normal 0.0-2.0 [facility] Comment on above: Performed By: #### L [id number] ####Cuff Cutter: NICOLE BOWERS ([id number])[address] IMMATURE GRANS ABSOLUTE 0.0 10*3/uL Normal <0.1 [facility] Comment on above: Performed By: #### L [id number] ####Cuff Cutter: NICOLE BOWERS ([id number])[facility])[address] [place] [address] Lymphocytes (Bld) [#/Vol] 2.7 10*3/uL Normal 1.0-4.3 [facility] Comment on above: Performed By: #### L [id number] ####Cuff Cutter: NICOLE BOWERS ([id number])[facility])[address] [place] [address] Lymphocytes/100 WBC (Bld) 31.0 % Normal 15.0-45.0 [facility] Comment on above: Performed By: #### L [id number] ####Cuff Cutter: NICOLE BOWERS ([id number])[facility])[address] [place] [address] MCH (RBC) [Entitic mass] 32.9 pg Normal 26.0-34.0 [facility] Comment on above: Performed By: #### L [id number] ####Cuff Cutter: NICOLE BOWERS ([id number])[facility])[address] [place] [address] MCHC 31.7 % Normal 30.5-36.0 [facility] Comment on above: Performed By: #### L [id number] ####Cuff Cutter: NICOLE BOWERS ([id number])[facility])[address] [place] [address] MCV (RBC) [Entitic vol] 103.9 fL High 77.0-99.0 [facility] Comment on above: Performed By: #### L [id number] ####Cuff Cutter: NICOLE BOWERS ([id number])[facility])[address] [place] [address] Monocytes (Bld) [#/Vol] 0.8 10*3/uL Normal 0.0-0.9 [facility] Comment on above: Performed By: #### L [id number] ####Cuff Cutter: NICOLE BOWERS ([id number])[facility])[address] [place] [address] Monocytes/100 WBC (Bld) 8.8 % Normal 5.0-13.0 [facility] Comment on above: Performed By: #### L [id number] ####Cuff Cutter: NICOLE BOWERS ([id number])[facility])[address] [place] [address] NEUTROPHILS ABSOLUTE 5.1 10*3/uL Normal 1.8-7.5 [facility] Comment on above: Performed By: #### L [id number] ####Cuff Cutter: NICOLE BOWERS ([id number])[facility])[address] [place] [address] Neutrophils/100 WBC (Bld) 58.9 % Normal 38.0-82.0 [facility] Comment on above: Performed By: #### L [id number] ####Cuff Cutter: NICOLE BOWERS ([id number])[facility] ([facility])[address] [place] [address] NRBC 0.2 /100 WBCs Normal 0.0-2.0 [facility] Comment on above: Performed By: #### L [id number] ####Cuff Cutter: NICOLE BOWERS ([id number])[facility] ([facility])[address] [place] [address] Platelet mean volume (Bld) [Entitic vol] 10.7 fL Normal 9.0-12.7 [facility] Comment on above: Performed By: #### L [id number] ####Cuff Cutter: NICOLE BOWERS ([id number])[facility] ([facility])[address] [place] [address] Platelets (Bld) [#/Vol] 239 10*3/uL Normal 140-440 [facility] Comment on above: Performed By: #### L [id number] ####Cuff Cutter: NICOLE BOWERS ([id number])[facility] ([facility])[address] [place] [address] RBC (Bld) [#/Vol] 4.34 10*6/uL Low 4.40-5.90 [facility] Comment on above: Performed By: #### L [id number] ####Cuff Cutter: NICOLE BOWERS ([id number])[facility] ([facility])[address] [place] [address] WBC (Bld) [#/Vol] 8.6 10*3/uL Normal 3.6-10.7 [facility] Comment on above: Performed By: #### L [id number] ####Cuff Cutter: NICOLE BOWERS ([id number])[facility] ([facility])[address] [place] [address] COMPREHENSIVE METABOLIC PANE Ming 07-04-2024 Albumin [Mass/Vol] 2.7 g/dL Low 3.5-5.0 [facility] Comment on above: Performed By: #### L [id number] ####Cuff Cutter: NICOLE BOWERS ([phone])[facility] ([facility])[address] [place] [address] ALP [Catalytic activity/Vol] 229 U/L High 40-150 [facility] Comment on above: Performed By: #### L AB17 ####Cuff Cutter: NICOLE BOWERS ([id number])[facility] ([facility])[address] [place] [address] ALT [Catalytic activity/Vol] 126 U/L High <40 [facility] Comment on above: Performed By: #### L AB17 ####Cuff Cutter: NICOLE BOWERS ([id number])[facility] ([facility])[address] [place] [address] Anion gap [Moles/Vol] 9 mmol/L Normal 3-13 [facility] Comment on above: Performed By: #### L AB17 ####Cuff Cutter: NICOLE BOWERS ([id number])[facility] ([facility])[address] [place] [address] AST [Catalytic activity/Vol] 47 U/L High <34 [facility] Comment on above: Performed By: #### L AB17 ####Cuff Cutter: NICOLE BOWERS ([id number])[facility] ([facility])[address] [place] [address] Bilirubin [Mass/Vol] 1.3 mg/dL High <1.2 [facility] Comment on above: Performed By: #### L AB17 ####Cuff Cutter: NICOLE BOWERS ([id number])[facility])[address] [place] [address] Calcium [Mass/Vol] 8.0 mg/dL Low 8.4-10.2 [facility] Comment on above: Performed By: #### L AB17 ####Cuff Cutter: NICOLE BOWERS ([id number])[facility] ([facility])[address] [place] [address] Chloride [Moles/Vol] 106 mmol/L Normal 98-107 [facility] Comment on above: Performed By: #### L AB17 ####Cuff Cutter: NICOLE BOWERS ([id number])[facility])[address] [place] [address] CO2 [Moles/Vol] 20 mmol/L Low 22-29 [facility] Comment on above: Performed By: #### L AB17 ####Cuff Cutter: NICOLE BOWERS ([phone])[facility])[address] [place] [address] Creatinine [Mass/Vol] 2.12 mg/dL High 0.72-1.25 [facility] Comment on above: Performed By: #### L AB17 ####Cuff Cutter: NIOCLE BOWERS ([phone])[facility])[address] [place] [address] GLOMERULAR FILTRATION RATE ML/MIN/1.73 SQ M.PREDICTED 38.2 mL/min/1.73m*2 Low >60.0 [facility] Comment on above: Result Comment: Calc ulation based on the Chronic Kidney Disease Epidemiology Collaboration (CKD-EPI) equation refit without adjustment for race Performed By: #### L AB17 ####Cuff Cutter: INCOLE BOWERS ([id number])[facility])[address] [place] [address] Glucose [Mass/Vol] 95 mg/dL Normal 74-100 [facility] Comment on above: Performed By: #### L AB17 ####Cuff Cutter: NICOLE BOWERS ([id number])[facility])[address] [place] [address] Potassium [Moles/Vol] 4.3 mmol/L Normal 3.5-5.1 [facility] Comment on above: Result Comment: [facility] potassium values may be up to 0.5 mmol/L lower than serum values. Performed By: #### L AB17 ####Cuff Cutter: NICOLE BWOERS ([id number])[facility] ([facility])[address] [place] [address] Protein [Mass/Vol] 5.3 g/dL Low 6.4-8.3 [facility] Comment on above: Performed By: #### L AB17 ####Cuff Cutter: NICOLE BOWERS ([id number])[facility] ([facility])[address] [place] [address] Sodium [Moles/Vol] 135 mmol/L Low 136-145 [facility] Comment on above: Performed By: #### L AB17 ####Cuff Cutter: INCOLE BOWERS ([id number])[facility] ([facility])[address] [place] [address] Urea nitrogen [Mass/Vol] 36 mg/dL High 8-21 [facility] Comment on above: Performed By: #### L AB17 ####Cuff Cutter: NICOLE BOWERS ([id number])[facility] ([facility])[address] [place] [address] Comprehensive metabolic 1998 panelon 07-04-2024 Albumin [Mass/Vol] 2.7 g/dL Low 3.5 - 5.0 g/dL [facility] ALP [Catalytic activity/Vol] 229 U/L High 40 - 150 U/L [facility] ALT [Catalytic activity/Vol] 126 U/L High NINF - 40 U/L [facility] Anion gap [Moles/Vol] 9 mmol/L 3 - 13 mmol/L [facility] AST [Catalytic activity/Vol] 47 U/L High NINF - 34 U/L [facility] Bilirubin [Mass/Vol] 1.3 mg/dL High NINF - 1.2 mg/dL [facility] Calcium [Mass/Vol] 8 mg/dL Low 8.4 - 10. 2 mg/dL [facility] Chloride [Moles/Vol] 106 mmol/L 98 - 10 7 mmol/L [facility] CO2 [Moles/Vol] 20 mmol/L Low 22 - 29 mmol/L [facility] Creatinine [Mass/Vol] 2.12 mg/dL High 0.72 - 1.25 mg/dL [facility] GFR/1.73 sq M.predicted (S/P/Bld) [Vol rate/Area] 38.2 mL/min Low - PINF [facility] Comment on above: Calculation based on the Chronic Kidney Disease Epidemiology Collaboration (CKD-EPI) equation refit without adjustment for race Glucose [Mass/Vol] 95 mg/dL 74 - 100 mg/dL [facility] Interpretation and review of laboratory results Abnormal [facility] Potassium [Moles/Vol] 4.3 mmol/L 3.5 - 5.1 mmol/L [facility] Comment on above: Plasma potassium heidi ues may be up to 0.5 mmol/L lower than serum values. Protein [Mass/Vol] 5.3 g/dL Low 6.4 - 8.3 g/dL [facility] Sodium [Moles/Vol] 135 mmol/L Low 136 - 145 mmol/L [facility] Urea nitrogen [Mass/Vol] 36 mg/dL High 8 - 21 mg/dL [facility] LACTIC ACID WITH REFLEXon Lactate [Moles/Vol] 1.4 mmol/L Normal 0.5-2.2 [facility] Comment on above: Performed By: #### L [id number] ####Cuff Cutter: NICOLE BOWERS ([id number])[address] Lactate [Moles/Vol] 2.1 mmol/L Normal 0.5-2.2 [facility] Comment on above: Performed By: #### L [id number] ####Cuff Cutter: NICOLE BOWERS ([id number])[address] Laboratory - Chemistry and C hemistry - challengeon 07-04-2024 Magnesium [Mass/Vol] 2 mg/dL 1.6 - 2 .6 mg/dL [facility] Lactate [Moles/Vol] 2.1 mmol/L 0.5 - 2. 2 mmol/L [facility] Urea nitrogen (U) [Mass/Vol] 620 mg/dL [facility] MAGNESIUMon 07-04-2024 Magnesium [Mass/Vol] 2.0 mg/dL Normal 1.6-2.6 [facility] Comment on above: Result Comment: ALEJANDRO R COMMENTS:Higher values can be expected in females during menses. Performed By: #### L [id number], [id number] ####Cuff Cutter: NICOLE BOWERS ([id number])[facility] ([facility])[address] [place] [address] Magnesium [Mass/Vol]on 07-04 Interpretation and review of laboratory results Normal [facility] Higher values can be expected in females during menses. [facility] No Panel Informationon 07-04 Interpretation and review of laboratory results Normal [facility] Interpretation and review of laboratory results Normal [facility] CREATININE, URINE 115.3 mg/dL 63.0 - 166 .0 mg/dL [facility] UREA (BUN), URINE, FRACTIONAL EXCRETION 30.9 [facility] Comment on above: Fractional excretion of urea under 35% is consistent with a prerenal cause. UREA (BUN), URINE, TUBULAR REABSORPTION 0.7 [facility] Progress Noteon 07-04-2024 Progress Note Normal [facility] Progress Note Normal [facility] BLOOD GAS, VENOUSon 07-03-19 25 Base excess Calc (BldV) [Moles/Vol] -6.8000 mmol/L Low -3.0-3.0 [facility] Comment on above: Performed By: #### L [id number] ####Cuff Cutter: LESLEE HERNANDEZ ([id number])[facility] ([facility])[address] [place] [address] CO2 [Moles/Vol] 19.5 mmol/L Low 23.0-30.0 [facility] Comment on above: Performed By: #### L [id number] ####Cuff Cutter: LESLEE HERNANDEZ ([id number])[facility] ([facility])[address] HCO3 (Bld) [Moles/Vol] 18.4 mmol/L Low 21.0-30.0 [facility] Comment on above: Performed By: #### L [id number] ####Cuff Cutter: LESLEE [id number])[facility] ([facility])[address] Hemoglobin (Bld) [Mass/Vol] 15.2 g/dL Normal Screen only [facility] Comment on above: Performed By: #### L [id number] ####Cuff Cutter: LESLEE MARY ([id number])[facility] ([facility])[address] OXYGEN (MM HG) IN VENOUS BLOOD 39.3 mm Hg Normal [facility] Comment on above: Performed By: #### L [id number] ####Cuff Cutter: LESLEE MCNEILLRAMON ([phone])[facility] ([facility])[address] OXYGEN SATURATION (%) IN VENOUS BLOOD 60.4 % Normal [facility] Comment on above: Performed By: #### L [id number] ####Cuff Cutter: LESLEE MCNEILLRAMON ([id number])[facility] ([facility])[address] PCO2, JAZ 36.1 mm Hg Low 38.0-56.0 [facility] Comment on above: Performed By: #### L [id number] ####Cuff Cutter: LESLEE TURKTYRONE ([id number])[facility] ([facility])[address] PH VENOUS 7.325 Normal 7.320-7.420 [facility] Comment on above: Performed By: #### L [id number] ####Cuff Cutter: LESLEE MCNEILLRAMON ([id number])[facility] ([facility])[address] SOURCE OF OXYGEN Room Air Normal [facility] Comment on above: Result Comment: ALEJANDRO Tatum COMMENTS:Assessment of oxygenation is best done with an arterial blood gas determination. Reference ranges for pO2, bicarbonate, and base excess are for mixed venous blood. Specimens drawn from a peripheral vein will often have higher values. Performed By: #### L [id number] ####Cuff Cutter: LESELE HERNANDEZ ([id number])[facility] ([facility])[address] CBC W Auto Differential pane l (Bld)on 07-03-2024 Basophils (Bld) [#/Vol] 0 10*3/uL 0.0 - 0.2 10*3/uL [facility] Basophils/100 WBC (Bld) 0.3 % 0.0 - 2.0 % [facility] Eosinophils (Bld) [#/Vol] 0 10*3/uL 0.0 - 0.5 10*3/uL [facility] Eosinophils/100 WBC (Bld) 0 % 0.0 - 6.0 % [facility] Erythrocyte distribution width (RBC) [Ratio] 14.6 % 11.5 - 15.0 % [facility] Hematocrit (Bld) [Volume fraction] 48.6 % 40.0 - 52.0 % [facility] Hemoglobin (Bld) [Mass/Vol] 15.7 g/dL 13.0 - 18.0 g/dL [facility] Immature granulocytes (Bld) [#/Vol] 0 10*3/uL NINF - 0.1 10*3/uL [facility] Immature granulocytes/100 WBC (Bld) 0.4 % 0.0 - 2.0 % [facility] Interpretation and review of laboratory results Abnormal [facility] Lymphocytes (Bld) [#/Vol] 1.5 10*3/uL 1.0 - 4.3 10*3/uL [facility] Lymphocytes/100 WBC (Bld) 21.1 % 15.0 - 45.0 % [facility] MCH (RBC) [Entitic mass] 33 pg 26.0 - 34.0 pg [facility] MCHC (RBC) [Mass/Vol] 32.3 % 30.5 - 36.0 % [facility] MCV (RBC) [Entitic vol] 102.1 fL High 77.0 - 99.0 fL [facility] Monocytes (Bld) [#/Vol] 0.4 10*3/uL 0.0 - 0.9 10*3/uL [facility] Monocytes/100 WBC (Bld) 5.4 % 5.0 - 13.0 % [facility] Neutrophils (Bld) [#/Vol] 5.3 10*3/uL 1.8 - 7.5 10*3/uL [facility] Neutrophils/100 WBC (Bld) 72.8 % 38.0 - 82.0 % [facility] Nucleated RBC/100 WBC (Bld) [Ratio] 0.3 % [facility] Platelet mean volume (Bld) [Entitic vol] 10.2 fL 9.0 - 12.7 fL [facility] Platelets (Bld) [#/Vol] 261 10*3/uL 140 - 440 10*3/uL [facility] RBC (Bld) [#/Vol] 4.76 10*6/uL 4.40 - 5.9 0 10*6/uL [facility] WBC (Bld) [#/Vol] 7.3 10*3/uL 3.6 - 10.7 10*3/uL [facility] CBC WITH AUTO DIFFERENTIALon 07-03-2024 Basophils (Bld) [#/Vol] 0.0 10*3/uL Normal 0.0-0.2 [facility] Comment on above: Performed By: #### L [id number] ####Cuff Cutter: LESLEE HERNANDEZ ([id number])[facility] ([facility])[address] Basophils/100 WBC (Bld) 0.3 % Normal 0.0-2.0 [facility] Comment on above: Performed By: #### L [id number] ####Cuff Cutter: LESLEE HERNANDEZ ([id number])[facility] ([facility])[address] Eosinophils (Bld) [#/Vol] 0.0 10*3/uL Normal 0.0-0.5 [facility] Comment on above: Performed By: #### L [id number] ####Cuff Cutter: LESLEE HERNANDEZ ([id number])[facility] ([facility])[address] [place] [address] [place] Eosinophils/100 WBC (Bld) 0.0 % Normal 0.0-6.0 [facility] Comment on above: Performed By: #### L [id number] ####Cuff Cutter: LESLEE HERNANDEZ ([id number])[facility] ([facility])[address] Erythrocyte distribution width (RBC) [Ratio] 14.6 % Normal 11.5-15.0 [facility] Comment on above: Performed By: #### L [id number] ####Cuff Cutter: LESLEE HERNANDEZ ([phone])[facility] ([facility])[address] Hematocrit (Bld) [Volume fraction] 48.6 % Normal 40.0-52.0 [facility] Comment on above: Performed By: #### L [id number] ####Cuff Cutter: LESLEE HERNANDEZ ([id number])[facility] ([facility])[address] [place] [address] Hemoglobin (Bld) [Mass/Vol] 15.7 g/dL Normal 13.0-18.0 [facility] Comment on above: Performed By: #### L [id number] ####Cuff Cutter: LESLEE HERNANDEZ ([id number])[facility] ([facility])[address] [place] [address] IMMATURE GRANS % 0.4 % Normal 0.0-2.0 [facility] Comment on above: Performed By: #### L [id number] ####Cuff Cutter: LESLEE HERNANDEZ ([id number])[facility] ([facility])[address] IMMATURE GRANS ABSOLUTE 0.0 10*3/uL Normal <0.1 [facility] Comment on above: Performed By: #### L [id number] ####Cuff Cutter: LESLEE HERNANDEZ ([id number])[facility] ([facility])[address] [place] [address] [place] Lymphocytes (Bld) [#/Vol] 1.5 10*3/uL Normal 1.0-4.3 [facility] Comment on above: Performed By: #### L [id number] ####Cuff Cutter: LESLEE HERNANDEZ ([id number])[facility] ([facility])[address] Lymphocytes/100 WBC (Bld) 21.1 % Normal 15.0-45.0 [facility] Comment on above: Performed By: #### L [id number] ####Cuff Cutter: LESLEE HERNANDEZ ([id number])[facility] ([facility])[address] MCH (RBC) [Entitic mass] 33.0 pg Normal 26.0-34.0 [facility] Comment on above: Performed By: #### L [id number] ####Cuff Cutter: LESLEE HERNANDEZ ([id number])[facility] ([facility])[address] MCHC 32.3 % Normal 30.5-36.0 [facility] Comment on above: Performed By: #### L [id number] ####Cuff Cutter: LESLEE HERNANDEZ ([id number])[facility] ([facility])[address] [place] [address] MCV (RBC) [Entitic vol] 102.1 fL High 77.0-99.0 [facility] Comment on above: Performed By: #### L [id number] ####Cuff Cutter: LESLEE HERNANDEZ ([id number])[facility] ([facility])[address] [place] [address] Monocytes (Bld) [#/Vol] 0.4 10*3/uL Normal 0.0-0.9 [facility] Comment on above: Performed By: #### L [id number] ####Cuff Cutter: LESLEE HERNANDEZ ([id number])[facility] ([facility])[address] Monocytes/100 WBC (Bld) 5.4 % Normal 5.0-13.0 [facility] Comment on above: Performed By: #### L [id number] ####Cuff Cutter: LESLEE HERNANDEZ ([id number])[facility] ([facility])[address] NEUTROPHILS ABSOLUTE 5.3 10*3/uL Normal 1.8-7.5 [facility] Comment on above: Performed By: #### L [id number] ####Cuff Cutter: LESLEE HERNANDEZ ([id number])[facility] ([facility])[address] Neutrophils/100 WBC (Bld) 72.8 % Normal 38.0-82.0 [facility] Comment on above: Performed By: #### L [id number] ####Cuff Cutter: LESLEE HERNANDEZ ([id number])[facility] ([facility])[address] NRBC 0.3 /100 WBCs Normal 0.0-2.0 [facility] Comment on above: Performed By: #### L [id number] ####Cuff Cutter: LESLEE HERNANDEZ ([id number])[facility] ([facility])[address] Platelet mean volume (Bld) [Entitic vol] 10.2 fL Normal 9.0-12.7 [facility] Comment on above: Performed By: #### L [id number] ####Cuff Cutter: LESLEE HERNANDEZ ([id number])[facility] ([facility])[address] [place] [address] [place] Platelets (Bld) [#/Vol] 261 10*3/uL Normal 140-440 [facility] Comment on above: Performed By: #### L [id number] ####Cuff Cutter: LESLEE HERNANDEZ ([id number])[facility] ([facility])[address] [place] [address] [place] RBC (Bld) [#/Vol] 4.76 10*6/uL Normal 4.40-5.90 [facility] Comment on above: Performed By: #### L [id number] ####Cuff Cutter: LESLEE HERNANDEZ ([id number])[facility] ([facility])[address] WBC (Bld) [#/Vol] 7.3 10*3/uL Normal 3.6-10.7 [facility] Comment on above: Performed By: #### L [id number] ####Cuff Cutter: LESLEE HERNANDEZ ([id number])[facility] ([facility])[address] COMPLETE URINALYSISon 2024 AMORPHOUS CRYSTALS (#/HPF) IN URINE Few Abnormal Negative [facility] Comment on above: Performed By: #### L [id number] ####Cuff Cutter: LESLEE HERNANDEZ ([id number])[facility] [place] ([facility])[address] BACTERIA (#/HPF) IN URINE Negative Normal Negative [facility] Comment on above: Performed By: #### L [id number] ####Cuff Cutter: LESLEE HERNANDEZ ([id number])[facility] ([facility])[address] BILIRUBIN, TOTAL PRESENCE IN URINE Negative Normal Negative [facility] Comment on above: Performed By: #### L [id number] ####Cuff Cutter: LESLEE HERNANDEZ ([id number])[facility] ([facility])[address] Clarity (U) Turbid Abnormal Clear [facility] Comment on above: Performed By: #### L [id number] ####Cuff Cutter: LESLEE HERNANDEZ ([id number])[facility] ([facility])[address] Color (U) Yellow Normal Lt. Yellow [facility] Comment on above: Performed By: #### L [id number] ####Cuff Cutter: LESLEE HERNANDEZ ([id number])[facility] [place] ([facility])[address] [place] [address] [place] GLUCOSE (MG/DL) IN URINE Normal Normal Normal (<70) [facility] Comment on above: Performed By: #### L [id number] ####Cuff Cutter: LESLEE MARY ([id number])[facility] ([facility])[address] HEMOGLOBIN PRESENCE IN URINE Negative Normal Negative [facility] Comment on above: Performed By: #### L [id number] ####Cuff Cutter: LESLEE MCNEILLRAMON ([phone])[facility] ([facility])[address] HYALINE CASTS (#/LPF) IN URINE SEDIMENT BY MICROSCOPY 3-5 Abnormal Negative [facility] Comment on above: Performed By: #### L [id number] ####Cuff Cutter: LESLEE MCNEILLRAMON ([id number])[facility] ([facility])[address] Ketones Ql (U) Negative Normal Negative [facility] Comment on above: Performed By: #### L [id number] ####Cuff Cutter: LESLEE TURKTYRONE ([id number])[facility] ([facility])[address] LEUKOCYTE ESTERASE PRESENCE IN URINE BY TEST STRIP Negative Normal Negative [facility] Comment on above: Performed By: #### L [id number] ####Cuff Cutter: LESLEE TURKTYRONE ([id number])[facility] ([facility])[address] [place] [address] [place] MUCUS (#/LPF) IN URINE SEDIMENT Few Normal Negative [facility] Comment on above: Performed By: #### L [id number] ####Cuff Cutter: LESLEE MCNEILLRAMON ([id number])[facility] ([facility])[address] [place] [address] [place] NITRITE PRESENCE IN URINE Negative Normal Negative [facility] Comment on above: Performed By: #### L [id number] ####Cuff Cutter: LESLEE TURKTYRONE ([id number])[facility] ([facility])[address] pH (U) 5.5 [pH] Normal 5.0-8.0 [facility] Comment on above: Performed By: #### L [id number] ####Cuff Cutter: LESLEE HERNANDEZ ([id number])[facility] [place] [address] Protein (U) [Mass/Vol] 100 mg/dL Abnormal Negative [facility] Comment on above: Performed By: #### L [id number] ####Cuff Cutter: LESLEE HERNANDEZ ([id number])[facility] [place] [address] RBC (#/HPF) IN URINE SEDIMENT 3-5 Abnormal 0-2 [facility] Comment on above: Performed By: #### L [id number] ####Cuff Cutter: LESLEE HERNANDEZ ([id number])[facility] ([facility])[address] [place] [address] Specific gravity (U) [Rel density] 1.030 Normal 1.005-1.030 [facility] Comment on above: Performed By: #### L [id number] ####Cuff Cutter: LESLEE HERNANDEZ ([id number])[facility] ([facility])[address] [place] [address] SPERMATOZOA (#/HPF) IN URINE SEDIMENT Few Abnormal Negative [facility] Comment on above: Performed By: #### L [id number] ####Cuff Cutter: LESLEE HERNANDEZ ([id number])[facility] [place] [address] SQUAMOUS EPITHELIAL CELLS (#/HPF) IN URINE SEDIMENT 0-2 Normal 3-5 [facility] Comment on above: Performed By: #### L [id number] ####Cuff Cutter: LESLEE HERNANDEZ ([id number])[facility] [place] [address] UROBILINOGEN (MG/DL) IN URINE Normal Normal Normal (0-1) [facility] Comment on above: Performed By: #### L [id number] ####Cuff Cutter: LESLEE HERNANDEZ ([id number])[facility] ([facility])[address] WBC (LEUKOCYTE) (#/HPF) IN URINE SEDIMENT 3-5 Normal 0-5 [facility] Comment on above: Performed By: #### L [id number] ####Cuff Cutter: LESLEE HERNANDEZ ([id number])[facility] ([facility])[address] COMPREHENSIVE METABOLIC PANE Ming 07-03-2024 Albumin [Mass/Vol] 3.3 g/dL Low 3.5-5.0 [facility] Comment on above: Performed By: #### L [id number], [id number], LAB99, LAB17 ####Cuff Cutter: LESLEE HERNANDEZ ([id number])[facility] ([facility])[address] ALP [Catalytic activity/Vol] 267 U/L High 40-150 [facility] Comment on above: Performed By: #### L [id number], [id number], LAB99, LAB17 ####Cuff Cutter: LESLEE HERNANDEZ ([id number])[facility] [place] ([facility])[address] ALT [Catalytic activity/Vol] 159 U/L High <40 [facility] Comment on above: Performed By: #### L [id number], [id number], LAB99, LAB17 ####Cuff Cutter: LESLEE HERNANDEZ ([id number])[facility] ([facility])[address] Anion gap [Moles/Vol] 12 mmol/L Normal 3-13 [facility] Comment on above: Performed By: #### L [id number], [id number], LAB99, LAB17 ####Cuff Cutter: LESLEE HERNANDEZ ([id number])[facility] ([facility])[address] [place] [address] [place] AST [Catalytic activity/Vol] 56 U/L High <34 [facility] Comment on above: Performed By: #### L [id number], [id number], LAB99, LAB17 ####Cuff Cutter: LESLEE HERNANDEZ ([id number])[facility] ([facility])[address] Bilirubin [Mass/Vol] 2.4 mg/dL High <1.2 [facility] Comment on above: Performed By: #### L [id number], [id number], LAB99, LAB17 ####Cuff Cutter: LESLEE HERNANDEZ ([id number])[facility] Calcium [Mass/Vol] 9.0 mg/dL Normal 8.4-10.2 [facility] Comment on above: Performed By: #### L [id number], [id number], LAB99, LAB17 ####Cuff Cutter: LESLEE HERNANDEZ ([id number])[facility] ([facility])[address] Chloride [Moles/Vol] 110 mmol/L High 98-107 [facility] Comment on above: Performed By: #### L [id number], MLP736, LAB99, LAB17 ####Cuff Cutter: LESLEE HERNANDEZ ([id number])[facility] [place] [address] [place] CO2 [Moles/Vol] 20 mmol/L Low 22-29 [facility] Comment on above: Performed By: #### L [id number], [id number], LAB99, LAB17 ####Cuff Cutter: LESLEE HERNANDEZ ([id number])[facility] [place] [address] [place] Creatinine [Mass/Vol] 2.01 mg/dL High 0.72-1.25 [facility] Comment on above: Performed By: #### L [id number], [id number], LAB99, LAB17 ####Cuff Cutter: LESLEE HERNANDEZ ([id number])[facility] ([facility])[address] [place] [address] [place] GLOMERULAR FILTRATION RATE ML/MIN/1.73 SQ M.PREDICTED 40.7 mL/min/1.73m*2 Low >60.0 [facility] Comment on above: Result Comment: Calc ulation based on the Chronic Kidney Disease Epidemiology Collaboration (CKD-EPI) equation refit without adjustment for race Performed By: #### L [id number], [id number], LAB99, LAB17 ####Cuff Cutter: LESLEE HERNANDEZ ([id number])[facility] ([facility])[address] Glucose [Mass/Vol] 126 mg/dL High 74-100 [facility] Comment on above: Performed By: #### L [id number], XIJ445, LAB99, LAB17 ####Cuff Cutter: LESLEE HERNANDEZ ([id number])[facility] ([facility])[address] Potassium [Moles/Vol] 4.4 mmol/L Normal 3.5-5.1 [facility] Comment on above: Result Comment: [facility] potassium values may be up to 0.5 mmol/L lower than serum values. Performed By: #### L [id number], [id number], LAB99, LAB17 ####Cuff Cutter: LESLEE HERNANDEZ ([id number])[facility] ([facility])[address] [place] [address] [place] Protein [Mass/Vol] 6.5 g/dL Normal 6.4-8.3 [facility] Comment on above: Performed By: #### L [id number], [id number], LAB99, LAB17 ####Cuff Cutter: LESLEE HERNANDEZ ([id number])[facility] ([facility])[address] [place] [address] [place] Sodium [Moles/Vol] 142 mmol/L Normal 136-145 [facility] Comment on above: Performed By: #### L [id number], [id number], LAB99, LAB17 ####Cuff Cutter: LESLEE HERNANDEZ ([id number])[facility] ([facility])[address] Urea nitrogen [Mass/Vol] 35 mg/dL High 8-21 [facility] Comment on above: Performed By: #### L [id number], [id number], LAB99, LAB17 ####Cuff Cutter: LESLEE HERNANDEZ ([id number])[facility] ([facility])[address] ABDOMEN PELVIS WO IV CONT RASTon 07-03-2024 CT ABDOMEN PELVIS WO IV CONTRAST Normal [facility] CT Abdomen and Pelvis WO con traston 07-03-2024 [facility] 1980 [id number] Exam Date/Time: 07/03/2024 09:40 Procedure: CT ABDOMEN PELVIS WO IV CONTRAST Ordering Provider: DOVER CONNOR Reason For Exam: abdominal pain CT ABDOMEN AND PELVIS WITHOUT IV CONTRAST CLINICAL INDICATION: Abdominal pain TECHNIQUE: Multidetector spiral transaxial sequence was performed through the abdomen and pelvis without intravenous contrast. Images were reconstructed at 3 mm slice width at 3 mm interval. Dose reduction was employed with automated exposure control. COMPARISON: 06/14/2024 FINDINGS: Exam quality: This examination is limited for the evaluation of solid organs and vascular structures due to the lack of intravenous contrast. Chest base: The heart is enlarged. There are new trace pleural effusions. Two new round subpleural densities are present in the posterior right lower lobe measuring 14 mm and 6 mm. Liver: Normal size and contour. No identifiable lesion. Biliary tree: Normal caliber. The gallbladder is nondistended. Spleen: Normal. Adrenals: Normal. Pancreas: Normal. Kidneys: Mildly small bilaterally. No suspicious lesion. Renal collecting systems: No calculi, hydronephrosis or ureteral dilatation. Free fluid: Small ascites in the upper abdomen. Small to moderate pelvic ascites. Retroperitoneum and mesentery: No enlarged lymph nodes. Bowel: Normal caliber. The appendix is nondistended. Vasculature: Normal caliber. Abdominal wall: Normal. Pelvic organs/viscera: No mass identified. Bladder: No calculi or filling defects. Pelvic lymphadenopathy: None. Osseous structures: Mild degenerative change of the visualized spine is noted. [facility] Shane Galarza MD - 07/03/2024 [facility] 1980 [id number] Exam Date/Time: 07/03/2024 09:40 Procedure: CT ABDOMEN PELVIS WO IV CONTRAST Ordering Provider: DOVER CONNOR Reason For Exam: abdominal pain CT ABDOMEN AND PELVIS WITHOUT IV CONTRAST CLINICAL INDICATION: Abdominal pain TECHNIQUE: Multidetector spiral transaxial sequence was performed through the abdomen and pelvis without intravenous contrast. Images were reconstructed at 3 mm slice width at 3 mm interval. Dose reduction was employed with automated exposure control. COMPARISON: 06/14/2024 FINDINGS: Exam quality: This examination is limited for the evaluation of solid organs and vascular structures due to the lack of intravenous contrast. Chest base: The heart is enlarged. There are new trace pleural effusions. Two new round subpleural densities are present in the posterior right lower lobe measuring 14 mm and 6 mm. Liver: Normal size and contour. No identifiable lesion. Biliary tree: Normal caliber. The gallbladder is nondistended. Spleen: Normal. Adrenals: Normal. Pancreas: Normal. Kidneys: Mildly small bilaterally. No suspicious lesion. Renal collecting systems: No calculi, hydronephrosis or ureteral dilatation. Free fluid: Small ascites in the upper abdomen. Small to moderate pelvic ascites. Retroperitoneum and mesentery: No enlarged lymph nodes. Bowel: Normal caliber. The appendix is nondistended. Vasculature: Normal caliber. Abdominal wall: Normal. Pelvic organs/viscera: No mass identified. Bladder: No calculi or filling defects. Pelvic lymphadenopathy: None. Osseous structures: Mild degenerative change of the visualized spine is noted. IMPRESSION: 1. Small ascites, progressed from the prior study. No other acute abdominopelvic process. 2. New small nodular densities in the right lung base. Given their rapid development since the prior study findings are most likely developing infiltrates. Recommend short-term follow-up imaging to ensure resolution. 3. Cardiomegaly. Small bilateral pleural effusions. 4. Small bilateral kidneys. Report Dictated on Electronically Signed By: Shane Galarza MD Electronically Signed Date/Time: 07/03/2024 10:38 AM EST [facility] Radiology Study observation (narrative) [facility] Comprehensive metabolic 1998 panelon 07-03-2024 Albumin [Mass/Vol] 3.3 g/dL Low 3.5 - 5.0 g/dL [facility] ALP [Catalytic activity/Vol] 267 U/L High 40 - 150 U/L [facility] ALT [Catalytic activity/Vol] 159 U/L High NINF - 40 U/L [facility] Anion gap [Moles/Vol] 12 mmol/L 3 - 13 mmol/L [facility] AST [Catalytic activity/Vol] 56 U/L High NINF - 34 U/L [facility] Bilirubin [Mass/Vol] 2.4 mg/dL High NINF - 1.2 mg/dL [facility] Calcium [Mass/Vol] 9 mg/dL 8.4 - 10. 2 mg/dL [facility] Chloride [Moles/Vol] 110 mmol/L High 98 - 10 7 mmol/L [facility] CO2 [Moles/Vol] 20 mmol/L Low 22 - 29 mmol/L [facility] Creatinine [Mass/Vol] 2.01 mg/dL High 0.72 - 1.25 mg/dL [facility] GFR/1.73 sq M.predicted (S/P/Bld) [Vol rate/Area] 40.7 mL/min Low - PINF [facility] Comment on above: Calculation based on the Chronic Kidney Disease Epidemiology Collaboration (CKD-EPI) equation refit without adjustment for race Glucose [Mass/Vol] 126 mg/dL High 74 - 100 mg/dL [facility] Interpretation and review of laboratory results Abnormal [facility] Potassium [Moles/Vol] 4.4 mmol/L 3.5 - 5.1 mmol/L [facility] Comment on above: Plasma potassium heidi ues may be up to 0.5 mmol/L lower than serum values. Protein [Mass/Vol] 6.5 g/dL 6.4 - 8.3 g/dL [facility] Sodium [Moles/Vol] 142 mmol/L 136 - 145 mmol/L [facility] Urea nitrogen [Mass/Vol] 35 mg/dL High 8 - 21 mg/dL [facility] ECG 12-LEADon 07-03-2024 ECG 12-LEAD Normal [facility] ED Nursing Noteon 07-03-2024 ED Nursing Note [facility] arrived to transport pt to [facility] . Pt ambulated to stretcher without difficulty. Pt A&O, calm, and cooperative, no signs of distress noted. VS stable. Resp even, non labored. Normal [facility] ED Nursing Note Attempted to call report to T1 at [facility] no answer. Normal [facility] ED Nursing Note Pt given bedside table to food tray Normal [facility] ED Nursing Note Pt given urinal aske d to void if able. Pt states he does not have to urinate at this time. Normal [facility] ED Nursing Note Patient refusing to let this RN attempt IV without ultra sound. Patient states I dont want you to poke me without it Normal [facility] ED Nursing Note This RN attempted IV stick multiple times and was unsuccessful. Charge nurse notified. Normal [facility] ED Nursing Note Patient requesting t o be placed on oxygen. Patients oxygen saturation was 98% on room air at time of triage. Patient is now 95% on room air. Patient advised that he does not require oxygen at this time. Normal [facility] ED Nursing Note Patient reports he has a history of heart disease and stage 3 kidney disease. Patient reports shob started last pm. 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 Normal [facility] ED Provider Noteon ED Provider Note Normal [facility] HIGH SENSITIVITY TROPONIN, S ERIAL BASELINEon 07-03-2024 TROPONIN HIGH SENSITIVITY BASELINE 39 ng/L High <=35 [facility] Comment on above: Performed By: #### L [id number], [id number], [id number], LAB17 ####Cuff Cutter: LESLEE HERNANDEZ ([id number])[facility] ([facility])[address] [place] [address] HIGH SENSITIVITY TROPONIN, S ERIAL, SECOND TESTon 07-03-2024 TROPONIN HS DELTA, BASELINE TO SECOND -6 ng/L Normal <=2 [facility] Comment on above: Result Comment: This specimen was collected more than 20 minutes away from the 2 hour target. Use of this delta with the 2 hour troponin algorithm is not recommended, individualized clinical assessment is needed.A troponin delta greater than or equal to 15 ng/L is significant for acute cardiac injury.Values less than 15 but greater than 2 are an intermediate change requiring a 3rd serial troponin to be drawn.Values less than or equal to 2 indicate acute cardiac injury is not likely, see external algorithms for further clinical guidance. Performed By: #### L [id number] ####Cuff Cutter: LESLEE HERNANDEZ ([id number])[facility] ([facility])[address] [place] [address] TROPONIN HS, SERIAL REFLEX, TEST TWO 33 ng/L Normal <=35 [facility] Comment on above: Performed By: #### L [id number] ####Cuff Cutter: LESLEE HERNANDEZ ([id number])[facility] ([facility])[address] [place] [address] LACTIC ACID WITH REFLEXon Lactate [Moles/Vol] 2.5 mmol/L High 0.5-2.2 [facility] Comment on above: Performed By: #### L [id number] ####Cuff Cutter: NICOLE BOWERS ([id number])[facility] ([facility] Lactate [Moles/Vol] 2.2 mmol/L Normal 0.5-2.2 [facility] Comment on above: Performed By: #### L [id number] ####Cuff Cutter: LESLEE HERNANDEZ ([id number])[facility] ([facility])[address] [place] [address] LIPASEon 07-03-2024 Lipase [Catalytic activity/Vol] 18 U/L Normal <55 [facility] Comment on above: Performed By: #### L [id number], [id number], LAB99, LAB17 ####Cuff Cutter: LESLEE HERNANDEZ ([id number])[facility] ([facility])[address] [place] [address] Laboratory - Chemistry and C hemistry - challengeon 07-03-2024 Lactate [Moles/Vol] 2.5 mmol/L High 0.5 - 2. 2 mmol/L [facility] Lactate [Moles/Vol] 2.2 mmol/L 0.5 - 2. 2 mmol/L [facility] Lipase [Catalytic activity/Vol] 18 U/L NINF - 55 U/L [facility] Laboratory - Chemistry and C hemistry - challengeOrdered By: Zoie Stein on 07-03-2024 Base excess Calc (BldV) [Moles/Vol] -6.8000 mmol/L Low -3.0 - 3.0 mmol/L [facility] CO2 (BldV) [Partial pressure] 36.1 mm[Hg] Low [facility] CO2 [Moles/Vol] 19.5 mmol/L Low 23.0 - 30.0 mmol/L [facility] HCO3 (Bld) [Moles/Vol] 18.4 mmol/L Low 21.0 - 30.0 mmol/L [facility] Oxygen (BldV) [Partial pressure] 39.3 mm[Hg] mm Hg [facility] pH (BldV) 7.325 [pH] 7.320 - 7.420 [facility] - Hematology and Cell countsOrdered By: Zoie Stein on 07-03-2024 Hemoglobin (Bld) [Mass/Vol] 15.2 g/dL Screen only [facility] Lipase [Catalytic activity/V ol]on 07-03-2024 Interpretation and review of laboratory results Normal [facility] NT PRO BNPon 07-03-2024 Natriuretic peptide B (Bld) [Mass/Vol] 20166 pg/mL High <125 [facility] Comment on above: Performed By: #### L [id number], [id number], LAB99, LAB17 ####Cuff Cutter: LESLEE HERNANDEZ ([id number])[facility])[address] [place] [address] Natriuretic peptide B [Mass/ Vol]on 07-03-2024 Interpretation and review of laboratory results Abnormal [facility] Natriuretic peptide B (Bld) [Mass/Vol] 65981 pg/mL High NINF - 125 pg/mL [facility] No Panel Informationon 07-03 Interpretation and review of laboratory results Abnormal [facility] Incomplete analysis due to missing data in precordial lead(s) Sinus tachycardia Left atrial enlargement Left ventricular hypertrophy Nonspecific T abnormalities, lateral leads Borderline prolonged QT interval Electronically Signed On 07-03-2024 20:41:11 EST by Cornelio Gan M D - 07/03/2024 IMPRESSION: Incomplete analysis due to missing data in precordial lead(s) Sinus tachycardia Left atrial enlargement Left ventricular hypertrophy Nonspecific T abnormalities, lateral leads Borderline prolonged QT interval Electronically Signed On 07-03-2024 20:41:11 EST by Cornelio Joseph [facility] Interpretation and review of laboratory results Normal [facility] Troponin HS Delta, Baseline to Second -6 ng/L NINF - 2 ng/L [facility] Comment on above: This specimen was co llected more than 20 minutes away from the 2 hour target. Use of this delta with the 2 hour troponin algorithm is not recommended, individualized clinical assessment is needed. A troponin delta greater than or equal to 15 ng/L is significant for acute cardiac injury. Values less than 15 but greater than 2 are an intermediate change requiring a 3rd serial troponin to be drawn. Values less than or equal to 2 indicate acute cardiac injury is not likely, see external algorithms for further clinical guidance. Troponin HS, Serial Second 33 ng/L NINF - 35 ng/L [facility] Interpretation and review of laboratory results Abnormal [facility] Troponin HS, Serial Baseline 39 ng/L High NINF - 35 ng/L [facility] No Panel InformationOrdered By: Cornelio Joseph on 07-03-2024 P [place] 60 degrees [facility] [employer] Work Phone: IN Interval 153 ms [facility] Work Phone: QRS [place] -24 degrees [facility] Work Phone: QRSD Interval 97 ms [facility] [email or web address] Work Phone: QT Interval 350 ms [facility] Work Phone: QTC Interval 480 ms [facility] Work Phone: T Wave [place] 89 degrees [facility] Work Phone: [facility] Work Phone: No Panel InformationOrdered By: Zoie Stein on 07-03-2024 Interpretation and review of laboratory results Abnormal [facility] Source Of Oxygen Room Air Pam hurley Assessment of oxygenation is best done with an arterial blood gas determination. Reference ranges for pO2, bicarbonate, and base excess are for mixed venous blood. Specimens drawn from a peripheral vein will often have higher values. [facility] UREA NITROGEN, URINEon 07-03 CREATININE, URINE 115.3 mg/dL Normal 63.0-166.0 [facility] Comment on above: Performed By: #### L [id number] ####Cuff Cutter: NICOLE BOWERS ([id number])[facility])[address] [place] [address] UREA (BUN), URINE, FRACTIONAL EXCRETION 30.9 Normal [facility] Comment on above: Result Comment: Frac tional excretion of urea under 35% is consistent with a prerenal cause. Performed By: #### L [id number] ####Cuff Cutter: NICOLE BOWERS ([id number])[facility])[address] [place] [address] UREA (BUN), URINE, TUBULAR REABSORPTION 0.7 Normal [facility] Comment on above: Performed By: #### L [id number] ####Cuff Cutter: NICOLE BOWERS ([id number])[facility] ([facility])[address] [place] [address] UREA NITROGEN, URINE 620 mg/dL Normal [facility] Comment on above: Performed By: #### L [id number] ####Cuff Cutter: NICOLE BOWERS ([id number])[facility] ([facility])[address] [place] [address] US ABDOMEN LIMITEDon 025 US ABDOMEN LIMITED Normal [facility] US Abdomen limitedon 025 1. Positive sonographic Melendez sign. There is right upper quadrant ascites including pericholecystic free fluid. However, the gallbladder is nondistended and without evidence of gallstones or mural thickening to suggest cholecystitis. Given the positive sonographic Melendez sign, if there is persistent concern, HIDA scan could be obtained. 2. No biliary dilation. Report Dictated on Electronically Signed By: Shane Galarza MD Electronically Signed Date/Time: 07/03/2024 12:18 PM [facility] Patient Name: CARLO MEDINA : 1980 Exam Date/Time: 07/03/2024 12:06 Procedure: US ABDOMEN LIMITED Ordering Provider: DOVER CONNOR Reason For Exam: abdominal pain, transaminitis, evaluate for hepatobiliary process ULTRASOUND ABDOMEN LIMITED CLINICAL INDICATION: Abdominal pain, transaminitis TECHNIQUE: Ultrasound of the right upper quadrant COMPARISON: CT from the same day FINDINGS: Pancreas: The visualized portions of the pancreatic head and body are unremarkable. The remainder of the pancreas is obscured by bowel gas Liver: Normal echogenicity, size and contours. No focal lesion identified. Gallbladder: Nondistended gallbladder. No mural thickening. Trace adjacent free fluid is present. Per the special procedure technologist, the sonographic Melendez's sign was positive. Bile ducts: No intrahepatic and extrahepatic biliary dilatation Common bile duct: 2 mm Right kidney: Normal size measuring 9.6 cm. Normal parenchymal echogenicity without solid mass or hydronephrosis. Ascites: Small amount of free fluid surrounding the liver and gallbladder [facility] Shane Galarza MD - 07/03/2024 Patient Name: CARLO MEDINA : 1980 Exam Date/Time: 07/03/2024 12:06 Procedure: US ABDOMEN LIMITED Ordering Provider: DOVER CONNOR Reason For Exam: abdominal pain, transaminitis, evaluate for hepatobiliary process ULTRASOUND ABDOMEN LIMITED CLINICAL INDICATION: Abdominal pain, transaminitis TECHNIQUE: Ultrasound of the right upper quadrant COMPARISON: CT from the same day FINDINGS: Pancreas: The visualized portions of the pancreatic head and body are unremarkable. The remainder of the pancreas is obscured by bowel gas Liver: Normal echogenicity, size and contours. No focal lesion identified. Gallbladder: Nondistended gallbladder. No mural thickening. Trace adjacent free fluid is present. Per the special procedure technologist, the sonographic Melendez's sign was positive. Bile ducts: No intrahepatic and extrahepatic biliary dilatation Common bile duct: 2 mm Right kidney: Normal size measuring 9.6 cm. Normal parenchymal echogenicity without solid mass or hydronephrosis. Ascites: Small amount of free fluid surrounding the liver and gallbladder IMPRESSION: 1. Positive sonographic Melendez sign. There is right upper quadrant ascites including pericholecystic free fluid. However, the gallbladder is nondistended and without evidence of gallstones or mural thickening to suggest cholecystitis. Given the positive sonographic Melendez sign, if there is persistent concern, HIDA scan could be obtained. 2. No biliary dilation. Report Dictated on Electronically Signed By: Shane Galarza MD Electronically Signed Date/Time: 07/03/2024 12:18 PM EST [facility] Radiology Study observation (narrative) [facility] Urinalysis complete panel (U )Ordered By: Heledr Blackwell on 07-03-2024 Amorphous Crystals, Urine Few Abnormal Negative /HPF [facility] Bacteria LM.HPF (Urine sed) [#/Area] Negative Negative /HPF [facility] Bilirubin Ql (U) Negative Negative mg/dL [facility] Clarity (U) Turbid Abnormal Clear [facility] Color (U) Yellow Lt. Yellow [facility] Epithelial cells.squamous LM.HPF (Urine sed) [#/Area] 0-2 [facility] Glucose Ql (U) Normal Normal (<70) mg/dL [facility] Hemoglobin Ql (U) Negative Negative mg/dL [facility] Hyaline casts Auto (Urine sed) [#/Area] 3-5 Abnormal Negative /LPF [facility] Interpretation and review of laboratory results Abnormal [facility] Ketones (U) [Mass/Vol] Negative Negat dai mg/dL [facility] Leukocyte esterase Test strip Ql (U) Negative Negative Nicky/uL [facility] Mucus LM.HPF (Urine sed) [#/Area] Few Negative /LPF [facility] Nitrite Ql (U) Negative Negative [facility] th pH (U) 5.5 [pH] 5.0 - 8.0 pH [facility] Protein (U) [Mass/Vol] 100 mg/dL Abnormal Negative [facility] RBC LM.HPF (Urine sed) [#/Area] 3-5 Abnormal [facility] Specific gravity (U) [Rel density] 1.03 1.005 - 1.030 [facility] Spermatozoa LM.HPF (Urine sed) [#/Area] Few Abnormal Negative /HPF [facility] Urobilinogen (U) [Mass/Vol] Normal Normal (0-1) mg/dL [facility] WBC LM.HPF (Urine sed) [#/Area] 3-5 [facility] Vital signsOrdered By: Nadira in [place] on 07-03-2024 Heart rate 113 /min bpm [facility] Work Phone: Vital signsOrdered By: Zoie Stein on 07-03-2024 Oxygen saturation in Venous blood 60.4 % [facility] XR Chest Single viewon 07-03 FINDINGS AND IMPRESSION: SUPPORT DEVICES: None OSSEOUS STRUCTURES: Degenerative changes in the thoracic spine. HEART AND MEDIASTINUM: The cardiomediastinal silhouette appears unchanged from the prior exam. LUNGS AND PLEURA: There is pulmonary venous congestion, but without luz maria pulmonary edema. No consolidation. No sizable pleural effusion. Report Dictated on Electronically Signed By: Shane Galarza MD Electronically Signed Date/Time: 07/03/2024 10:08 AM [facility] Patient Name: CARLO MEDINA : 1980 Exam Date/Time: 07/03/2024 09:50 Procedure: XR CHEST 1 VIEW Ordering Provider: DOVER CONNOR Reason For Exam: sob hx chf CHEST CLINICAL INDICATION: Dyspnea TECHNIQUE: AP portable chest COMPARISON: 06/19/2024 [facility] Shaen Galarza MD - 07/03/2024 Patient Name: CARLO MEDINA : 1980 Exam Date/Time: 07/03/2024 09:50 Procedure: XR CHEST 1 VIEW Ordering Provider: DOVER CONNOR Reason For Exam: sob hx chf CHEST CLINICAL INDICATION: Dyspnea TECHNIQUE: AP portable chest COMPARISON: 06/19/2024 IMPRESSION: FINDINGS AND IMPRESSION: SUPPORT DEVICES: None OSSEOUS STRUCTURES: Degenerative changes in the thoracic spine. HEART AND MEDIASTINUM: The cardiomediastinal silhouette appears unchanged from the prior exam. LUNGS AND PLEURA: There is pulmonary venous congestion, but without luz maria pulmonary edema. No consolidation. No sizable pleural effusion. Report Dictated on Electronically Signed By: Shane Galarza MD Electronically Signed Date/Time: 07/03/2024 10:08 AM EST [facility] Radiology Study observation (narrative) [facility] XR Chest Single viewOrdered By: Shane Galarza on 07-03-2024 [facility] Work Phone: 29on 07-01-2024 29 Addended by: SEPIDEH TOWNSEND on: 08/20/2024 04:37 PM Modules accepted: Orders Normal [facility] No Panel Informationon 07-01 Sinus Tachycardia -Left atrial enlargement. Voltage criteria for LVH (R(V6) exceeds 2.26 mV). -Nonspecific T-abnormality. ABNORMAL [facility] Progress Noteon 07-01-2024 Progress Note Normal [facility] 36on 06-24-2024 36 Normal [facility] 36on 06-22-2024 36 Normal [facility] [id number] 06-21-2024 [id number] [facility] Nursing Noteon 06-21-2024 Nursing Note Gave patient discharge instructions. Patient verbalized understanding. Discussed the importance of taking the medications as prescribed. Importance of following up with Dr. Burnette and Dr Mccullough. IV discontinued. Meds to beds delivered scripts. Normal [facility] Nursing Note Notified Dr. Shayla Marcano APRN from cardiology regarding 20 beat run of VT through message. ] Normal [facility] Progress Noteon 06-21-2024 Progress Note Normal [facility] Progress Note Normal [facility] Progress Note Normal [facility] Progress Note Normal [facility] 30on 06-20-2024 30 Normal [facility] [id number] 06-20-2024 [id number] Normal [facility] BASIC METABOLIC PANELon 05-31 Anion gap [Moles/Vol] 9 mmol/L Normal 3-13 [facility] Comment on above: Performed By: #### L [id number], [id number], LAB15 ####Cuff Cutter: LESLEE HERNANDEZ ([id number])[facility] ([facility])[address] Calcium [Mass/Vol] 7.8 mg/dL Low 8.4-10.2 [facility] Comment on above: Performed By: #### L AB103, [id number], LAB15 ####Cuff Cutter: LESLEE HERNANDEZ ([id number])[facility] [place] ([facility])[address] Chloride [Moles/Vol] 104 mmol/L Normal 98-107 [facility] Comment on above: Performed By: #### L AB103, [id number], LAB15 ####Cuff Cutter: LESLEE HERNANDEZ ([id number])[facility] [place] ([facility])[address] [place] [address] [place] CO2 [Moles/Vol] 22 mmol/L Normal 22-29 [facility] Comment on above: Performed By: #### L AB103, [id number], LAB15 ####Cuff Cutter: LESLEE HERNANDEZ ([id number])[facility] [place] ([facility])[address] [place] [address] [place] Creatinine [Mass/Vol] 1.55 mg/dL High 0.72-1.25 [facility] Comment on above: Performed By: #### L AB103, [id number], LAB15 ####Cuff Cutter: LESLEE HERNANDEZ ([id number])[facility] [place] ([facility])[address] [place] [address] [place] GLOMERULAR FILTRATION RATE ML/MIN/1.73 SQ M.PREDICTED 55.6 mL/min/1.73m*2 Low >60.0 [facility] Comment on above: Result Comment: Calc ulation based on the Chronic Kidney Disease Epidemiology Collaboration (CKD-EPI) equation refit without adjustment for race Performed By: #### L AB103, [id number], LAB15 ####Cuff Cutter: LESLEE HERNANDEZ ([id number])[facility] (HLAB)[address] Glucose [Mass/Vol] 171 mg/dL High 74-100 [facility] Comment on above: Performed By: #### L AB103, [id number], LAB15 ####Cuff Cutter: LESLEE HERNANDEZ ([id number])[facility] Potassium [Moles/Vol] 3.8 mmol/L Normal 3.5-5.1 [facility] Comment on above: Result Comment: [facility] potassium values may be up to 0.5 mmol/L lower than serum values. Performed By: #### L AB103, CDI300, LAB15 ####Cuff Cutter: LESLEE HERNANDEZ ([id number])[facility] (SBAB)[address] Sodium [Moles/Vol] 135 mmol/L Low 136-145 [facility] Comment on above: Performed By: #### L AB103, [id number], LAB15 ####Cuff Cutter: LESLEE HERNANDEZ ([id number])[facility] Urea nitrogen [Mass/Vol] 22 mg/dL High 8-21 [facility] Comment on above: Performed By: #### L AB103, [id number], LAB15 ####Cuff Cutter: LESLEE HERNANDEZ ([id number])[facility] Basic metabolic 1998 panelon 06-20-2024 Anion gap [Moles/Vol] 9 mmol/L 3 - 13 mmol/L [facility] Calcium [Mass/Vol] 7.8 mg/dL Low 8.4 - 10. 2 mg/dL [facility] Chloride [Moles/Vol] 104 mmol/L 98 - 10 7 mmol/L [facility] CO2 [Moles/Vol] 22 mmol/L 22 - 29 mmol/L [facility] Creatinine [Mass/Vol] 1.55 mg/dL High 0.72 - 1.25 mg/dL [facility] GFR/1.73 sq M.predicted (S/P/Bld) [Vol rate/Area] 55.6 mL/min Low - PINF [facility] Comment on above: Calculation based on the Chronic Kidney Disease Epidemiology Collaboration (CKD-EPI) equation refit without adjustment for race Glucose [Mass/Vol] 171 mg/dL High 74 - 100 mg/dL [facility] Interpretation and review of laboratory results Abnormal [facility] Potassium [Moles/Vol] 3.8 mmol/L 3.5 - 5.1 mmol/L [facility] Comment on above: Plasma potassium heidi ues may be up to 0.5 mmol/L lower than serum values. Sodium [Moles/Vol] 135 mmol/L Low 136 - 145 mmol/L [facility] Urea nitrogen [Mass/Vol] 22 mg/dL High 8 - 21 mg/dL [facility] CBC W Auto Differential pane l (Bld)on 06-20-2024 Basophils (Bld) [#/Vol] 0 10*3/uL 0.0 - 0.2 10*3/uL [facility] Basophils/100 WBC (Bld) 0.2 % 0.0 - 2.0 % [facility] Eosinophils (Bld) [#/Vol] 0.1 10*3/uL 0.0 - 0.5 10*3/uL [facility] Eosinophils/100 WBC (Bld) 1 % 0.0 - 6.0 % [facility] Erythrocyte distribution width (RBC) [Ratio] 13.6 % 11.5 - 15.0 % [facility] Hematocrit (Bld) [Volume fraction] 41.9 % 40.0 - 52.0 % [facility] Hemoglobin (Bld) [Mass/Vol] 13.7 g/dL 13.0 - 18.0 g/dL [facility] Immature granulocytes (Bld) [#/Vol] 0 10*3/uL NINF - 0.1 10*3/uL [facility] Immature granulocytes/100 WBC (Bld) 0.2 % 0.0 - 2.0 % [facility] Interpretation and review of laboratory results Abnormal [facility] Lymphocytes (Bld) [#/Vol] 1.6 10*3/uL 1.0 - 4.3 10*3/uL [facility] Lymphocytes/100 WBC (Bld) 27.7 % 15.0 - 45.0 % [facility] MCH (RBC) [Entitic mass] 32.4 pg 26.0 - 34.0 pg [facility] MCHC (RBC) [Mass/Vol] 32.7 % 30.5 - 36.0 % [facility] MCV (RBC) [Entitic vol] 99.1 fL High 77.0 - 99.0 fL [facility] Monocytes (Bld) [#/Vol] 0.4 10*3/uL 0.0 - 0.9 10*3/uL [facility] Monocytes/100 WBC (Bld) 6.8 % 5.0 - 13.0 % [facility] Neutrophils (Bld) [#/Vol] 3.8 10*3/uL 1.8 - 7.5 10*3/uL [facility] Neutrophils/100 WBC (Bld) 64.1 % 38.0 - 82.0 % [facility] Nucleated RBC/100 WBC (Bld) [Ratio] 0 % [facility] Platelet mean volume (Bld) [Entitic vol] 10.5 fL 9.0 - 12.7 fL [facility] Platelets (Bld) [#/Vol] 202 10*3/uL 140 - 440 10*3/uL [facility] RBC (Bld) [#/Vol] 4.23 10*6/uL Low 4.40 - 5.9 0 10*6/uL [facility] WBC (Bld) [#/Vol] 5.9 10*3/uL 3.6 - 10.7 10*3/uL [facility] CBC WITH AUTO DIFFERENTIALon 06-20-2024 Basophils (Bld) [#/Vol] 0.0 10*3/uL Normal 0.0-0.2 [facility] Comment on above: Performed By: #### L [id number] ####Cuff Cutter: LESLEE HERNANDEZ ([id number])[facility] (SBAB)[address] [place] [address] Basophils/100 WBC (Bld) 0.2 % Normal 0.0-2.0 [facility] Comment on above: Performed By: #### L [id number] ####Cuff Cutter: LESLEE HERNANDEZ ([id number])[facility] (SBAB)[address] Eosinophils (Bld) [#/Vol] 0.1 10*3/uL Normal 0.0-0.5 [facility] Comment on above: Performed By: #### L [id number] ####Cuff Cutter: LESLEE TURKTYRONE ([id number])[facility] (SBAB)[address] Eosinophils/100 WBC (Bld) 1.0 % Normal 0.0-6.0 [facility] Comment on above: Performed By: #### L [id number] ####Cuff Cutter: LESLEE TURKTYRONE ([id number])[facility] [place] [address] Erythrocyte distribution width (RBC) [Ratio] 13.6 % Normal 11.5-15.0 [facility] Comment on above: Performed By: #### L [id number] ####Cuff Cutter: LESLEE HERNANDEZ ([id number])[facility] [place] [address] Hematocrit (Bld) [Volume fraction] 41.9 % Normal 40.0-52.0 [facility] Comment on above: Performed By: #### L [id number] ####Cuff Cutter: LESLEE TURKTYRONE ([id number])[facility] ([facility])[address] [place] [address] Hemoglobin (Bld) [Mass/Vol] 13.7 g/dL Normal 13.0-18.0 [facility] Comment on above: Performed By: #### L [id number] ####Cuff Cutter: LESLEE HERNANDEZ ([id number])[facility] ([facility])[address] IMMATURE GRANS % 0.2 % Normal 0.0-2.0 [facility] Comment on above: Performed By: #### L [id number] ####Cuff Cutter: LESLEE TURKTYRONE ([id number])[facility] (SBHLAB)[address] IMMATURE GRANS ABSOLUTE 0.0 10*3/uL Normal <0.1 [facility] Comment on above: Performed By: #### L [id number] ####Cuff Cutter: LESLEE HERNANDEZ ([id number])[facility] (SBHLAB)[address] Lymphocytes (Bld) [#/Vol] 1.6 10*3/uL Normal 1.0-4.3 [facility] Comment on above: Performed By: #### L [id number] ####Cuff Cutter: LESLEE TURKTYRONE ([id number])[facility] (SBAB)[address] Lymphocytes/100 WBC (Bld) 27.7 % Normal 15.0-45.0 [facility] Comment on above: Performed By: #### L [id number] ####Cuff Cutter: LESLEE TURKTYRONE ([id number])[facility] (SBAB)[address] MCH (RBC) [Entitic mass] 32.4 pg Normal 26.0-34.0 [facility] Comment on above: Performed By: #### L [id number] ####Cuff Cutter: LESLEE TURKTYRONE ([id number])[facility] (SBHLAB)[address] [place] [address] MCHC 32.7 % Normal 30.5-36.0 [facility] Comment on above: Performed By: #### L [id number] ####Cuff Cutter: LESLEE HERNANDEZ ([id number])[facility] (SBHLAB)[address] MCV (RBC) [Entitic vol] 99.1 fL High 77.0-99.0 [facility] Comment on above: Performed By: #### L [id number] ####Cuff Cutter: LESLEE HERNANDEZ ([id number])[facility] [place] (SBHLAB)[address] Monocytes (Bld) [#/Vol] 0.4 10*3/uL Normal 0.0-0.9 [facility] Comment on above: Performed By: #### L [id number] ####Cuff Cutter: LESLEE HERNANDEZ ([id number])[facility] [place] (SBHLAB)[address] Monocytes/100 WBC (Bld) 6.8 % Normal 5.0-13.0 [facility] Comment on above: Performed By: #### L [id number] ####Cuff Cutter: LESLEE HERNANDEZ ([id number])[facility] [place] (SBHLAB)[address] NEUTROPHILS ABSOLUTE 3.8 10*3/uL Normal 1.8-7.5 [facility] Comment on above: Performed By: #### L [id number] ####Cuff Cutter: LESLEE HERNANEDZ ([id number])[facility] [place] (SBHLAB)[address] Neutrophils/100 WBC (Bld) 64.1 % Normal 38.0-82.0 [facility] Comment on above: Performed By: #### L [id number] ####Cuff Cutter: LESLEE HERNANDEZ ([id number])[facility] [place] (SBHLAB)[address] NRBC 0.0 /100 WBCs Normal 0.0-2.0 [facility] Comment on above: Performed By: #### L [id number] ####Cuff Cutter: LESLEE HERNANDEZ ([id number])[facility] [place] (SBHLAB)[address] Platelet mean volume (Bld) [Entitic vol] 10.5 fL Normal 9.0-12.7 [facility] Comment on above: Performed By: #### L [id number] ####Cuff Cutter: LESLEE HERNANDEZ ([id number])[facility] (SBHLAB)[address] Platelets (Bld) [#/Vol] 202 10*3/uL Normal 140-440 [facility] Comment on above: Performed By: #### L [id number] ####Cuff Cutter: LESLEE HERNANDEZ ([id number])[facility] [place] (SBHLAB)[address] RBC (Bld) [#/Vol] 4.23 10*6/uL Low 4.40-5.90 [facility] Comment on above: Performed By: #### L [id number] ####Cuff Cutter: LESLEE HERNANDEZ ([id number])[facility] (SBHLAB)[address] WBC (Bld) [#/Vol] 5.9 10*3/uL Normal 3.6-10.7 [facility] Comment on above: Performed By: #### L [id number] ####Cuff Cutter: LESLEE HERNANDEZ ([id number])[facility] (SBHLAB)[address] Consulton 06-20-2024 Consult Normal [facility] - Chemistry and C hemistry - challengeon 06-20-2024 Magnesium [Mass/Vol] 2.1 mg/dL 1.6 - 2 .6 mg/dL [facility] MAGNESIUMon 06-20-2024 Magnesium [Mass/Vol] 2.1 mg/dL Normal 1.6-2.6 [facility] Comment on above: Result Comment: ALEJANDRO Tatum COMMENTS:Higher values can be expected in females during menses. Performed By: #### L AB103, [id number], LAB15 ####Cuff Cutter: LESLEE HERNANDEZ ([id number])[facility] (SBHLAB)[address] Magnesium [Mass/Vol]on 06-20 Interpretation and review of laboratory results Normal [facility] Higher values can be expected in females during menses. [facility] NT PRO BNPon 06-20-2024 Natriuretic peptide B (Bld) [Mass/Vol] 72396 pg/mL High <125 [facility] Comment on above: Performed By: #### L AB103, TOQ600, LAB15 ####Cuff Cutter: LESLEE HERNANDEZ ([phone])[facility] (SBAB)[address] [place] [address] Natriuretic peptide B [Mass/ Vol]on 06-20-2024 Interpretation and review of laboratory results Abnormal [facility] Natriuretic peptide B (Bld) [Mass/Vol] 27451 pg/mL High NINF - 125 pg/mL [facility] No Panel Informationon 06-20 [facility] Progress Noteon 06-20-2024 [facility] Progress [facility] 30on 06-19-2024 30 Normal [facility] Progress Noteon 06-19-2024 Progress Note Normal [facility] Progress [facility] Normal [facility] XR Chest 2 Viewson Diffuse enlargement of the cardiac silhouette. Persistent but interval decrease in mild vascular congestion. Report Dictated on Electronically Signed By: Joel Hi MD Electronically Signed Date/Time: 06/19/2024 12:08 PM [facility] Patient Name: CARLO MEDINA : 1980 Exam Date/Time: 06/19/2024 10:25 Procedure: XR CHEST 2 VIEWS Ordering Provider: LASSITER STEPHEN Reason For Exam: Shortness of breath CHEST X-RAY PA/LATERAL CLINICAL INDICATION: Shortness of breath bilateral lower extremity swelling TECHNIQUE: Frontal and lateral plain films of the chest were obtained. COMPARISON: June 13, 2024 FINDINGS: Cardiomediastinal silhouette: Cardiac silhouette is diffusely enlarged. Lungs: No focal airspace consolidations is noted. Mild vascular congestion is noted, though decreased compared to previous exam. Bones: Degenerative spurring is seen in the thoracic spine. No acute osseous findings. [facility] Joel Hi MD - 06/19/2024 [facility] Name: [facility] 1980 [id number] Exam Date/Time: 06/19/2024 10:25 Procedure: XR CHEST 2 VIEWS Ordering Provider: LASSITER STEPHEN Reason For Exam: Shortness of breath CHEST X-RAY PA/LATERAL CLINICAL INDICATION: Shortness of breath bilateral lower extremity swelling TECHNIQUE: Frontal and lateral plain films of the chest were obtained. COMPARISON: June 13, 2024 FINDINGS: Cardiomediastinal silhouette: Cardiac silhouette is diffusely enlarged. Lungs: No focal airspace consolidations is noted. Mild vascular congestion is noted, though decreased compared to previous exam. Bones: Degenerative spurring is seen in the thoracic spine. No acute osseous findings. IMPRESSION: Diffuse enlargement of the cardiac silhouette. Persistent but interval decrease in mild vascular congestion. Report Dictated on Electronically Signed By: Joel Hi MD Electronically Signed Date/Time: 06/19/2024 12:08 PM EST [facility] Radiology Study observation (narrative) [facility] XR Chest 2 ViewsOrdered By: Joel Hi on 06-19-2024 [facility] Work Phone: BASIC METABOLIC PANELon 12 Anion gap [Moles/Vol] 9 mmol/L Normal 3-13 [facility] Comment on above: Performed By: #### L AB106, [id number], [id number], LAB15 ####Cuff Cutter: LESLEE HERNANDEZ ([id number])[facility] (SBHLAB)[address] [place] [address] Calcium [Mass/Vol] 7.9 mg/dL Low 8.4-10.2 [facility] Comment on above: Performed By: #### L AB106, [id number], [id number], LAB15 ####Cuff Cutter: LESLEE HERNANDEZ ([id number])[facility] [place] (SBHLAB)[address] [place] [address] [place] Chloride [Moles/Vol] 102 mmol/L Normal 98-107 [facility] Comment on above: Performed By: #### L AB106, [id number], [id number], LAB15 ####Cuff Cutter: LESLEE HERNANDEZ ([id number])[facility] (SBHLAB)[address] [place] [address] [place] CO2 [Moles/Vol] 25 mmol/L Normal 22-29 [facility] Comment on above: Performed By: #### L AB106, [id number], KMR337, LAB15 ####Cuff Cutter: LESLEE HERNANDEZ ([id number])[facility] (SBHLAB)[address] Creatinine [Mass/Vol] 1.91 mg/dL High 0.72-1.25 [facility] Comment on above: Performed By: #### L AB106, [id number], DJR570, LAB15 ####Cuff Cutter: LESLEE HERNANDEZ ([id number])[facility] (SBHLAB)[address] GLOMERULAR FILTRATION RATE ML/MIN/1.73 SQ M.PREDICTED 43.2 mL/min/1.73m*2 Low >60.0 [facility] Comment on above: Result Comment: Calc ulation based on the Chronic Kidney Disease Epidemiology Collaboration (CKD-EPI) equation refit without adjustment for race Performed By: #### L AB106, [id number], [id number], LAB15 ####Cuff Cutter: LESLEE HERNANDEZ ([id number])[facility] (SBHLAB)[address] [place] [address] [place] Glucose [Mass/Vol] 173 mg/dL High 74-100 [facility] Comment on above: Performed By: #### L AB106, [id number], MZU467, LAB15 ####Cuff Cutter: LESLEE HERNANDEZ ([id number])[facility] (SBHLAB)[address] Potassium [Moles/Vol] 4.0 mmol/L Normal 3.5-5.1 [facility] Comment on above: Result Comment: [facility] potassium values may be up to 0.5 mmol/L lower than serum values. Performed By: #### L AB106, [id number], GQK421, LAB15 ####Cuff Cutter: LESLEE HERNANDEZ ([id number])[facility] (SBHLAB)[address] Sodium [Moles/Vol] 136 mmol/L Normal 136-145 [facility] Comment on above: Performed By: #### L AB106, [id number], ILU241, LAB15 ####Cuff Cutter: LESLEE HERNANDEZ ([id number])[facility] (SBHLAB)[address] [place] [address] Urea nitrogen [Mass/Vol] 30 mg/dL High 8-21 [facility] Comment on above: Performed By: #### L AB106, [id number], LKS064, LAB15 ####Cuff Cutter: LSELEE HERNANDEZ ([id number])[facility] (SBHLAB)[address] [place] [address] Basic metabolic 1998 panelon 06-18-2024 Anion gap [Moles/Vol] 9 mmol/L 3 - 13 mmol/L [facility] Calcium [Mass/Vol] 7.9 mg/dL Low 8.4 - 10. 2 mg/dL [facility] Chloride [Moles/Vol] 102 mmol/L 98 - 10 7 mmol/L [facility] CO2 [Moles/Vol] 25 mmol/L 22 - 29 mmol/L [facility] Creatinine [Mass/Vol] 1.91 mg/dL High 0.72 - 1.25 mg/dL [facility] GFR/1.73 sq M.predicted (S/P/Bld) [Vol rate/Area] 43.2 mL/min Low - PINF [facility] Comment on above: Calculation based on the Chronic Kidney Disease Epidemiology Collaboration (CKD-EPI) equation refit without adjustment for race Glucose [Mass/Vol] 173 mg/dL High 74 - 100 mg/dL [facility] Interpretation and review of laboratory results Abnormal [facility] Potassium [Moles/Vol] 4 mmol/L 3.5 - 5.1 mmol/L [facility] Comment on above: Plasma potassium heidi ues may be up to 0.5 mmol/L lower than serum values. Sodium [Moles/Vol] 136 mmol/L 136 - 145 mmol/L [facility] Urea nitrogen [Mass/Vol] 30 mg/dL High 8 - 21 mg/dL [facility] CBC W Auto Differential pane l (Bld)on 06-18-2024 Basophils (Bld) [#/Vol] 0 10*3/uL 0.0 - 0.2 10*3/uL [facility] Basophils/100 WBC (Bld) 0.2 % 0.0 - 2.0 % [facility] Eosinophils (Bld) [#/Vol] 0 10*3/uL 0.0 - 0.5 10*3/uL [facility] Eosinophils/100 WBC (Bld) 0.6 % 0.0 - 6.0 % [facility] Erythrocyte distribution width (RBC) [Ratio] 13.9 % 11.5 - 15.0 % [facility] Hematocrit (Bld) [Volume fraction] 46.5 % 40.0 - 52.0 % [facility] Hemoglobin (Bld) [Mass/Vol] 15 g/dL 13.0 - 18.0 g/dL [facility] Immature granulocytes (Bld) [#/Vol] 0 10*3/uL NINF - 0.1 10*3/uL [facility] Immature granulocytes/100 WBC (Bld) 0.2 % 0.0 - 2.0 % [facility] Interpretation and review of laboratory results Abnormal [facility] Lymphocytes (Bld) [#/Vol] 1.8 10*3/uL 1.0 - 4.3 10*3/uL [facility] Lymphocytes/100 WBC (Bld) 34.9 % 15.0 - 45.0 % [facility] MCH (RBC) [Entitic mass] 32.2 pg 26.0 - 34.0 pg [facility] MCHC (RBC) [Mass/Vol] 32.3 % 30.5 - 36.0 % [facility] MCV (RBC) [Entitic vol] 99.8 fL High 77.0 - 99.0 fL [facility] Monocytes (Bld) [#/Vol] 0.3 10*3/uL 0.0 - 0.9 10*3/uL [facility] Monocytes/100 WBC (Bld) 6.4 % 5.0 - 13.0 % [facility] Neutrophils (Bld) [#/Vol] 2.9 10*3/uL 1.8 - 7.5 10*3/uL [facility] Neutrophils/100 WBC (Bld) 57.7 % 38.0 - 82.0 % [facility] Nucleated RBC/100 WBC (Bld) [Ratio] 0 % [facility] Platelet mean volume (Bld) [Entitic vol] 10.6 fL 9.0 - 12.7 fL [facility] Platelets (Bld) [#/Vol] 220 10*3/uL 140 - 440 10*3/uL [facility] RBC (Bld) [#/Vol] 4.66 10*6/uL 4.40 - 5.9 0 10*6/uL [facility] WBC (Bld) [#/Vol] 5 10*3/uL 3.6 - 10.7 10*3/uL [facility] CBC WITH AUTO DIFFERENTIALon 06-18-2024 Basophils (Bld) [#/Vol] 0.0 10*3/uL Normal 0.0-0.2 [facility] Comment on above: Performed By: #### L [id number] ####Cuff Cutter: LESLEE HERNANDEZ ([id number])[facility] ([facility])[address] [place] [address] Basophils/100 WBC (Bld) 0.2 % Normal 0.0-2.0 [facility] Comment on above: Performed By: #### L [id number] ####Cuff Cutter: LESLEE HERNANDEZ ([id number])[facility] ([facility])[address] Eosinophils (Bld) [#/Vol] 0.0 10*3/uL Normal 0.0-0.5 [facility] Comment on above: Performed By: #### L [id number] ####Cuff Cutter: LESLEE HERNANDEZ ([id number])[facility] (SBHLAB)[address] Eosinophils/100 WBC (Bld) 0.6 % Normal 0.0-6.0 [facility] Comment on above: Performed By: #### L [id number] ####Cuff Cutter: LESLEE HERNANDEZ ([id number])[facility] (SBHLAB)[address] Erythrocyte distribution width (RBC) [Ratio] 13.9 % Normal 11.5-15.0 [facility] Comment on above: Performed By: #### L [id number] ####Cuff Cutter: LESLEE HERNANDEZ ([id number])[facility] Hematocrit (Bld) [Volume fraction] 46.5 % Normal 40.0-52.0 [facility] Comment on above: Performed By: #### L [id number] ####Cuff Cutter: LESLEE HERNANDEZ ([id number])[facility] (SBHLAB)[address] Hemoglobin (Bld) [Mass/Vol] 15.0 g/dL Normal 13.0-18.0 [facility] Comment on above: Performed By: #### L [id number] ####Cuff Cutter: LESLEE HERNANDEZ ([id number])[facility] (SBHLAB)[address] IMMATURE GRANS % 0.2 % Normal 0.0-2.0 [facility] Comment on above: Performed By: #### L [id number] ####Cuff Cutter: LESLEE HERNANDEZ ([id number])[facility] (SBHLAB)[address] IMMATURE GRANS ABSOLUTE 0.0 10*3/uL Normal <0.1 [facility] Comment on above: Performed By: #### L [id number] ####Cuff Cutter: LESLEE HERNANDEZ ([id number])[facility] (SBHLAB)[address] Lymphocytes (Bld) [#/Vol] 1.8 10*3/uL Normal 1.0-4.3 [facility] Comment on above: Performed By: #### L [id number] ####Cuff Cutter: LESLEE HERNANDEZ ([id number])[facility] [place] (SBHLAB)[address] Lymphocytes/100 WBC (Bld) 34.9 % Normal 15.0-45.0 [facility] Comment on above: Performed By: #### L [id number] ####Cuff Cutter: LESLEE HERNANDEZ ([id number])[facility] (SBHLAB)[address] MCH (RBC) [Entitic mass] 32.2 pg Normal 26.0-34.0 [facility] Comment on above: Performed By: #### L [id number] ####Cuff Cutter: LESLEE HERNANDEZ ([id number])[facility] [place] (SBHLAB)[address] MCHC 32.3 % Normal 30.5-36.0 [facility] [facility] Comment on above: Performed By: #### L [id number] ####Cuff Cutter: LESLEE HERNANDEZ ([id number])[facility] [place] (SB[facility])[address] [place] [address] MCV (RBC) [Entitic vol] 99.8 fL High 77.0-99.0 [facility] Comment on above: Performed By: #### L [id number] ####Cuff Cutter: LESLEE HERNANDEZ ([id number])[facility] [place] (SB[facility])[address] Monocytes (Bld) [#/Vol] 0.3 10*3/uL Normal 0.0-0.9 [facility] Comment on above: Performed By: #### L [id number] ####Cuff Cutter: LESLEE HERNANDEZ ([id number])[facility] [place] (SB[facility])[address] [place] [address] [place] Monocytes/100 WBC (Bld) 6.4 % Normal 5.0-13.0 [facility] Comment on above: Performed By: #### L [id number] ####Cuff Cutter: LESLEE TURKTYRONE ([id number])[facility] [place] (SB[facility])[address] NEUTROPHILS ABSOLUTE 2.9 10*3/uL Normal 1.8-7.5 [facility] Comment on above: Performed By: #### L [id number] ####Cuff Cutter: LESLEE HERNANDEZ ([id number])[facility] [place] ([facility])[address] Neutrophils/100 WBC (Bld) 57.7 % Normal 38.0-82.0 [facility] Comment on above: Performed By: #### L [id number] ####Cuff Cutter: LESLEE HERNANDEZ ([id number])[facility] [place] (SB[facility])[address] NRBC 0.0 /100 WBCs Normal 0.0-2.0 [facility] Comment on above: Performed By: #### L [id number] ####Cuff Cutter: LESLEE HERNANDEZ ([id number])[facility] [place] ([facility])[address] Platelet mean volume (Bld) [Entitic vol] 10.6 fL Normal 9.0-12.7 [facility] Comment on above: Performed By: #### L [id number] ####Cuff Cutter: LESLEE HERNANDEZ ([id number])[facility] [place] ([facility])[address] [place] [address] [place] Platelets (Bld) [#/Vol] 220 10*3/uL Normal 140-440 [facility] Comment on above: Performed By: #### L [id number] ####Cuff Cutter: LESLEE HERNANDEZ ([id number])[facility] [place] ([facility])[address] RBC (Bld) [#/Vol] 4.66 10*6/uL Normal 4.40-5.90 [facility] Comment on above: Performed By: #### L [id number] ####Cuff Cutter: LESLEE HERNANDEZ ([id number])[facility] (SBHLAB)[address] [place] [address] WBC (Bld) [#/Vol] 5.0 10*3/uL Normal 3.6-10.7 [facility] Comment on above: Performed By: #### L [id number] ####Cuff Cutter: LESLEE HERNANDEZ ([id number])[facility] [place] [address] ECG 12-LEADon 06-18-2024 ECG 12-LEAD IMPRESSION: Sinus tachycardia Left Atrial enlargement LEFT BUNDLE BRANCH BLOCK Electronically Signed On 06-18-2024 17:45:59 EST by Cleve Luke Normal [facility] HIGH SENSITIVITY TROPONIN, S ERIAL BASELINEon 06-18-2024 TROPONIN HIGH SENSITIVITY BASELINE 44 ng/L High <=35 [facility] Comment on above: Performed By: #### L AB106, [id number], [id number], LAB15 ####Cuff Cutter: LESLEE HERNANDEZ ([id number])[facility] [place] [address] Laboratory - Chemistry and C hemistry - challengeon 06-18-2024 Magnesium [Mass/Vol] 2.1 mg/dL 1.6 - 2 .6 mg/dL [facility] MAGNESIUMon 06-18-2024 Magnesium [Mass/Vol] 2.1 mg/dL Normal 1.6-2.6 [facility] Comment on above: Result Comment: ALEJANDRO R COMMENTS:Higher values can be expected in females during menses. Performed By: #### L AB106, [id number], [id number], LAB15 ####Cuff Cutter: LESLEE HERNANDEZ ([id number])[facility] (SBAB)[address] [place] [address] Magnesium [Mass/Vol]on 06-18 Interpretation and review of laboratory results Normal [facility] Higher values can be expected in females during menses. [facility] NT PRO BNPon 06-18-2024 Natriuretic peptide B (Bld) [Mass/Vol] 03471 pg/mL High <125 [facility] Comment on above: Performed By: #### L AB106, [id number], [id number], LAB15 ####Cuff Cutter: LESLEE HERNANDEZ ([id number])[facility] (SBHLAB)[address] [place] [address] [facility] Natriuretic peptide B [Mass/ Vol]on 06-18-2024 Interpretation and review of laboratory results Abnormal [facility] Natriuretic peptide B (Bld) [Mass/Vol] 71820 pg/mL High NINF - 125 pg/mL [facility] [employer] [facility] No Panel InformationOrdered By: Jose Carlos Luke on 06-18-2024 P [place] 0 degrees [employer] Work Phone: IN Interval 109 ms [employer] Work Phone: QRS [place] 126 degrees [employer] Work Phone: QRSD Interval 149 ms [email or web address] Work Phone: QT Interval 419 ms [employer] Work Phone: QTC Interval 581 ms [employer] [facility] [place] [facility] Work Phone: T Wave [place] -50 degrees [employer] Work Phone: [employer] Work Phone: No Panel Informationon 06-18 Sinus tachycardia Left Atrial enlargement LEFT BUNDLE BRANCH BLOCK Electronically Signed On 06-18-2024 17:45:59 EST by Jose Carlos Bueno MD - 06/18/2024 IMPRESSION: Sinus tachycardia Left Atrial enlargement LEFT BUNDLE BRANCH BLOCK Electronically Signed On 06-18-2024 17:45:59 EST by Cleve Luke [facility] Interpretation and review of laboratory results Abnormal [facility] Troponin HS, Serial Baseline 44 ng/L High NINF - 35 ng/L [facility] Nursing Noteon 06-18-2024 Nursing Note Patient refusing troponin blood draw at this time. Normal [facility] Nursing Note Normal [facility] Progress Noteon 06-18-2024 Progress Note Normal [facility] Progress Note Normal [facility] Progress Note Normal [facility] Progress Note Normal [facility] Vital signsOrdered By: Danilo Luke on 06-18-2024 Heart rate 115 /min bpm [facility] Work Phone: Anesthesia Noteon 06-17-2024 Anesthesia Note Normal [facility] Cardiac catheterization stud yon 06-17-2024 No significant epicardial coronary artery disease Milldy elevated right heart pressures: RA 7 mmHg, mean PA pressure 27 mmHg Elevated PCWP ~ 23mmHg, and LVEDP ~ 25 mmHg Decreased cardiac output/index. By Rodney, output: 3/0 L/min index 1.5: By thermodilution, output: 3.1 L/min index: SVR ~ 2200 Procedure Details Right brachial vein access was obtained via modified seldinger technique under ultrasound guidance and 7Fr sheath was placed. Patient was prepped and draped in sterile fashion. Soft tissue overlying the right radial artery was anesthetized with lidocaine injected subcutaneously. 6 Kittitian sheath was advanced into the right radial artery using modified Seldinger technique. Standard cocktail of nitroglycerin and verapamil was administered through the sheath. Patient was anticoagulated with IV heparin. Left and right coronary angiograms were performed with 5 Kittitian JL 3.5 and JR4 catheters respectively. JR4 catheter was advanced across the aortic valve using a guidewire to perform left heart cath with measurement of pressures. Catheter was aspirated and flushed with saline. Sheath was aspirated and flushed between all catheter exchanges. At the end of the case radial sheath was withdrawn and arterial hemostasis was achieved with placement of Vasc Band over the right radial arteriotomy. Coronary Findings Diagnostic Dominance: Right Left Main: The vessel is large in size. The vessel is angiographically normal. Left Anterior Descending: The vessel is large in size. The vessel is angiographically normal. Left Circumflex: The vessel is large in size. The vessel is angiographically normal. Right Coronary Artery: The vessel is large in size. The vessel exhibits minimal luminal irregularities. Intervention No interventions have been documented. Clinical Background 44-year-old man who was recently diagnosed LV systolic dysfunction, admitted with decompensated heart failure, severe biventricular systolic dysfunction with a decline in LV function, acute kidney injury concerning for cardiorenal syndrome Cath Recommendations Patient management should include: Aggressive risk factor modification and optimal medical management. CV CPACS HEMO [facility] No Panel Informationon 06-17 Performed by: [facility], [address] [place] [address] CLIA ID: [id number] Reportable Results: OxyHemoglobin 0 - 100% Expected Ranges: OxyHemoglobin Arterial Sample 95 - 100%* Adequate Oxygenation >=92% Venous sample 60 - 85%* Note: *OxyHemoglobin Reference Ranges based upon literature review Adequate oxygenation based upon [facility] Clinical Decision [facility] Performed by: [facility], [address] [place] [id number] CLIA ID: [id number] Reportable Results: OxyHemoglobin 0 - 100% Expected Ranges: OxyHemoglobin Arterial Sample 95 - 100%* Adequate Oxygenation >=92% Venous sample 60 - 85%* Note: *OxyHemoglobin Reference Ranges based upon literature review Adequate oxygenation based upon [facility] Clinical Decision [facility] Performed by: [facility], [address] [place] [address] CLIA ID: [id number] Reportable Results: OxyHemoglobin 0 - 100% Expected Ranges: OxyHemoglobin Arterial Sample 95 - 100%* Adequate Oxygenation >=92% Venous sample 60 - 85%* Note: *OxyHemoglobin Reference Ranges based upon literature review Adequate oxygenation based upon [facility] Clinical Decision [facility] Nursing Noteon 06-17-2024 Nursing Note Patient had a twenty second run of vtach caught on tele monitor. Dr. 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 No new orders at this time. Normal [facility] Nursing Note Normal [facility] Progress Noteon 06-17-2024 Progress Note Normal [facility] Progress [facility] Normal [facility] Normal [facility] Progress Note Normal [facility] Vital signson 06-17-2024 Oxygen saturation in Blood 93 % [facility] Oxygen saturation in Blood 53 % [facility] Oxygen saturation in Blood 49 % [facility] 30on 06-16-2024 30 Normal [facility] BASIC METABOLIC PANELon 05-30 Anion gap [Moles/Vol] 9 mmol/L Normal 3-13 [facility] Comment on above: Performed By: #### L AB15, [id number] ####Cuff Cutter: LESLEE HERNANDEZ ([id number])[facility] (SB[facility])[address] Calcium [Mass/Vol] 8.3 mg/dL Low 8.4-10.2 [facility] Comment on above: Performed By: #### L AB15, [id number] ####Cuff Cutter: LESLEE HERNANDEZ ([id number])[facility] [place] (SB[facility])[address] [place] [address] [place] Chloride [Moles/Vol] 104 mmol/L Normal 98-107 [facility] Comment on above: Performed By: #### L AB15, [id number] ####Cuff Cutter: LESLEE HERNANDEZ ([id number])[facility] [place] ([facility])[address] [place] [address] [place] CO2 [Moles/Vol] 27 mmol/L Normal 22-29 [facility] Comment on above: Performed By: #### L AB15, [id number] ####Cuff Cutter: LESLEE HERNANDEZ ([id number])[facility] [place] ([facility])[address] [place] [address] [place] Creatinine [Mass/Vol] 1.91 mg/dL High 0.72-1.25 [facility] Comment on above: Performed By: #### L AB15, [id number] ####Cuff Cutter: LESLEE HERNANDEZ ([id number])[facility] ([facility])[address] GLOMERULAR FILTRATION RATE ML/MIN/1.73 SQ M.PREDICTED 43.2 mL/min/1.73m*2 Low >60.0 [facility] Comment on above: Result Comment: Calc ulation based on the Chronic Kidney Disease Epidemiology Collaboration (CKD-EPI) equation refit without adjustment for race Performed By: #### L AB15, JAH201 ####Cuff Cutter: LESLEE HERNANDEZ ([id number])[facility] (SBHLAB)[address] Glucose [Mass/Vol] 107 mg/dL High 74-100 [facility] Comment on above: Performed By: #### L AB15, [id number] ####Cuff Cutter: LESLEE HERNANDEZ ([id number])[facility])[address] [place] [address] Potassium [Moles/Vol] 3.9 mmol/L Normal 3.5-5.1 [facility] Comment on above: Result Comment: [facility] potassium values may be up to 0.5 mmol/L lower than serum values. Performed By: #### L AB15, [id number] ####Cuff Cutter: LESLEE HERNANDEZ ([id number])[facility] (HLAB)[address] Sodium [Moles/Vol] 140 mmol/L Normal 136-145 [facility] Comment on above: Performed By: #### L AB15, [id number] ####Cuff Cutter: LESLEE HERNANDEZ ([id number])[facility] (SBHL[facility])[address] Urea nitrogen [Mass/Vol] 31 mg/dL High 8-21 [facility] Comment on above: Performed By: #### L AB15, [id number] ####Cuff Cutter: LESLEE HERNANDEZ ([id number])[facility] (HLAB)[address] Basic metabolic 1998 panelon 06-16-2024 Anion gap [Moles/Vol] 9 mmol/L 3 - 13 mmol/L [facility] Calcium [Mass/Vol] 8.3 mg/dL Low 8.4 - 10. 2 mg/dL [facility] Chloride [Moles/Vol] 104 mmol/L 98 - 10 7 mmol/L [facility] CO2 [Moles/Vol] 27 mmol/L 22 - 29 mmol/L [facility] Creatinine [Mass/Vol] 1.91 mg/dL High 0.72 - 1.25 mg/dL [facility] GFR/1.73 sq M.predicted (S/P/Bld) [Vol rate/Area] 43.2 mL/min Low - PINF [facility] Comment on above: Calculation based on the Chronic Kidney Disease Epidemiology Collaboration (CKD-EPI) equation refit without adjustment for race Glucose [Mass/Vol] 107 mg/dL High 74 - 100 mg/dL [facility] Interpretation and review of laboratory results Abnormal [facility] Potassium [Moles/Vol] 3.9 mmol/L 3.5 - 5.1 mmol/L [facility] Comment on above: Plasma potassium heidi ues may be up to 0.5 mmol/L lower than serum values. Sodium [Moles/Vol] 140 mmol/L 136 - 145 mmol/L [facility] Urea nitrogen [Mass/Vol] 31 mg/dL High 8 - 21 mg/dL [facility] CBC W Auto Differential pane l (Bld)Ordered By: Jessica Santoro on 06-16-2024 Basophils (Bld) [#/Vol] 0 10*3/uL 0.0 - 0.2 10*3/uL [facility] Basophils/100 WBC (Bld) 0.4 % 0.0 - 2.0 % [facility] Eosinophils (Bld) [#/Vol] 0.1 10*3/uL 0.0 - 0.5 10*3/uL [facility] Eosinophils/100 WBC (Bld) 0.9 % 0.0 - 6.0 % [facility] Erythrocyte distribution width (RBC) [Ratio] 13.6 % 11.5 - 15.0 % [facility] Hematocrit (Bld) [Volume fraction] 47.5 % 40.0 - 52.0 % [facility] Hemoglobin (Bld) [Mass/Vol] 15.6 g/dL 13.0 - 18.0 g/dL [facility] Immature granulocytes (Bld) [#/Vol] 0 10*3/uL NINF - 0.1 10*3/uL [facility] Immature granulocytes/100 WBC (Bld) 0.2 % 0.0 - 2.0 % [facility] Interpretation and review of laboratory results Abnormal [facility] Lymphocytes (Bld) [#/Vol] 2 10*3/uL 1.0 - 4.3 10*3/uL [facility] Lymphocytes/100 WBC (Bld) 35.3 % 15.0 - 45.0 % [facility] MCH (RBC) [Entitic mass] 32.6 pg 26.0 - 34.0 pg [facility] MCHC (RBC) [Mass/Vol] 32.8 % 30.5 - 36.0 % [facility] MCV (RBC) [Entitic vol] 99.2 fL High 77.0 - 99.0 fL [facility] Monocytes (Bld) [#/Vol] 0.5 10*3/uL 0.0 - 0.9 10*3/uL [facility] Monocytes/100 WBC (Bld) 8.1 % 5.0 - 13.0 % [facility] Neutrophils (Bld) [#/Vol] 3.1 10*3/uL 1.8 - 7.5 10*3/uL [facility] Neutrophils/100 WBC (Bld) 55.1 % 38.0 - 82.0 % [facility] Nucleated RBC/100 WBC (Bld) [Ratio] 0 % [facility] Platelet mean volume (Bld) [Entitic vol] 10.3 fL 9.0 - 12.7 fL [facility] Platelets (Bld) [#/Vol] 195 10*3/uL 140 - 440 10*3/uL [facility] RBC (Bld) [#/Vol] 4.79 10*6/uL 4.40 - 5.9 0 10*6/uL [facility] WBC (Bld) [#/Vol] 5.5 10*3/uL 3.6 - 10.7 10*3/uL [facility] CBC WITH AUTO DIFFERENTIALon 06-16-2024 Basophils (Bld) [#/Vol] 0.0 10*3/uL Normal 0.0-0.2 [facility] Comment on above: Performed By: #### L [id number] ####Cuff Cutter: LESLEE HERNANDEZ ([id number])[facility] [place] (SBHLAB)[address] Basophils/100 WBC (Bld) 0.4 % Normal 0.0-2.0 [facility] Comment on above: Performed By: #### L [id number] ####Cuff Cutter: LESLEE MCNEILLRAMON ([id number])[facility] [place] (SBHLAB)[address] Eosinophils (Bld) [#/Vol] 0.1 10*3/uL Normal 0.0-0.5 [facility] Comment on above: Performed By: #### L [id number] ####Cuff Cutter: LESLEE MCNEILLRAMON ([id number])[facility] [place] ([facility])[address] Eosinophils/100 WBC (Bld) 0.9 % Normal 0.0-6.0 [facility] Comment on above: Performed By: #### L [id number] ####Cuff Cutter: LESLEE TURKTYRONE ([id number])[facility] [place] ([facility])[address] Erythrocyte distribution width (RBC) [Ratio] 13.6 % Normal 11.5-15.0 [facility] Comment on above: Performed By: #### L [id number] ####Cuff Cutter: LESLEE HERNANDEZ ([id number])[facility] [place] (SB[facility])[address] [place] [address] Hematocrit (Bld) [Volume fraction] 47.5 % Normal 40.0-52.0 [facility] Comment on above: Performed By: #### L [id number] ####Cuff Cutter: LESLEE HERNANDEZ ([id number])[facility] [place] ([facility])[address] Hemoglobin (Bld) [Mass/Vol] 15.6 g/dL Normal 13.0-18.0 [facility] Comment on above: Performed By: #### L [id number] ####Cuff Cutter: LESLEE HERNANDEZ ([id number])[facility] [place] ([facility])[address] IMMATURE GRANS % 0.2 % Normal 0.0-2.0 [facility] Comment on above: Performed By: #### L [id number] ####Cuff Cutter: LESLEE HERNANDEZ ([id number])[facility] [place] ([facility])[address] IMMATURE GRANS ABSOLUTE 0.0 10*3/uL Normal <0.1 [facility] Comment on above: Performed By: #### L [id number] ####Cuff Cutter: LESLEE HERNANDEZ ([id number])[facility] (SBHLAB)[address] Lymphocytes (Bld) [#/Vol] 2.0 10*3/uL Normal 1.0-4.3 [facility] Comment on above: Performed By: #### L [id number] ####Cuff Cutter: LESLEE HERNANDEZ ([id number])[facility]BRE[facility] (SBHLAB)[address] Lymphocytes/100 WBC (Bld) 35.3 % Normal 15.0-45.0 [facility] Comment on above: Performed By: #### L [id number] ####Cuff Cutter: LESLEE HERNANDEZ ([id number])[facility]BREH[facility] (SBHLAB)[address] MCH (RBC) [Entitic mass] 32.6 pg Normal 26.0-34.0 [facility] Comment on above: Performed By: #### L [id number] ####Cuff Cutter: LESLEE HERNANDEZ ([id number])[facility] [place] ([facility])[address] MCHC 32.8 % Normal 30.5-36.0 [facility] Comment on above: Performed By: #### L [id number] ####Cuff Cutter: LESLEE HERNANDEZ ([id number])[facility] [place] (SB[facility])[address] MCV (RBC) [Entitic vol] 99.2 fL High 77.0-99.0 [facility] Comment on above: Performed By: #### L [id number] ####Cuff Cutter: LESLEE HERNANDEZ ([id number])[facility] [place] ([facility])[address] Monocytes (Bld) [#/Vol] 0.5 10*3/uL Normal 0.0-0.9 [facility] Comment on above: Performed By: #### L [id number] ####Cuff Cutter: LESLEE HERNANDEZ ([id number])[facility] [place] ([facility])[address] Monocytes/100 WBC (Bld) 8.1 % Normal 5.0-13.0 [facility] Comment on above: Performed By: #### L [id number] ####Cuff Cutter: LESLEE HERNANDEZ ([id number])[facility] [place] ([facility])[address] NEUTROPHILS ABSOLUTE 3.1 10*3/uL Normal 1.8-7.5 [facility] Comment on above: Performed By: #### L [id number] ####Cuff Cutter: LESLEE HERNANDEZ ([id number])[facility] [place] ([facility])[address] Neutrophils/100 WBC (Bld) 55.1 % Normal 38.0-82.0 [facility] Comment on above: Performed By: #### L [id number] ####Cuff Cutter: LESLEE HERNANDEZ ([id number])[facility] [place] (SBHLAB)[address] [place] [address] [place] NRBC 0.0 /100 WBCs Normal 0.0-2.0 [facility] Comment on above: Performed By: #### L [id number] ####Cuff Cutter: LESLEE HERNANDEZ ([id number])[facility] [place] ([facility])[address] Platelet mean volume (Bld) [Entitic vol] 10.3 fL Normal 9.0-12.7 [facility] Comment on above: Performed By: #### L [id number] ####Cuff Cutter: LESLEE HERNANDEZ ([id number])[facility] [place] ([facility])[address] Platelets (Bld) [#/Vol] 195 10*3/uL Normal 140-440 [facility] Comment on above: Performed By: #### L [id number] ####Cuff Cutter: LESLEE HERNANDEZ ([id number])[facility] [place] (SBHLAB)[address] RBC (Bld) [#/Vol] 4.79 10*6/uL Normal 4.40-5.90 [facility] Comment on above: Performed By: #### L [id number] ####Cuff Cutter: LESLEE HERNANDEZ ([id number])[facility] [place] ([facility])[address] WBC (Bld) [#/Vol] 5.5 10*3/uL Normal 3.6-10.7 [facility] Comment on above: Performed By: #### L [id number] ####Cuff Cutter: LESLEE HERNANDEZ ([id number])[facility] [place] (SBHLAB)[address] Laboratory - Chemistry and C hemistry - challengeon 06-16-2024 Magnesium [Mass/Vol] 1.7 mg/dL 1.6 - 2 .6 mg/dL [facility] MAGNESIUMon 06-16-2024 Magnesium [Mass/Vol] 1.7 mg/dL Normal 1.6-2.6 [facility] Comment on above: Result Comment: ORDYasmany R COMMENTS:Higher values can be expected in females during menses. Performed By: #### L AB15, [id number] ####Cuff Cutter: LESLEE HERNANDEZ ([id number])[facility] (SBHLAB)[address] [place] [address] [place] Magnesium [Mass/Vol]on 06-16 Interpretation and review of laboratory results Normal [facility] Higher values can be expected in females during menses. [facility] No Panel Informationon 06-16 [facility] Nursing Noteon 06-16-2024 Nursing Note Normal [facility] Progress Noteon 06-16-2024 Progress [facility] Normal [facility] 30on 06-15-2024 30 Normal [facility] [id number] 06-15-2024 [id number] Normal [facility] CHLORIDE, URINE, RANDOMon CHLORIDE, UR RANDOM 128 mmol/L Normal [facility] Comment on above: Performed By: #### L AB374, IBN482, RKT388, MBI155 ####Cuff Cutter: LESLEE HERNANDEZ ([id number])[facility] (SBHLAB)[address] [place] [address] [place] CHLORIDE, URINE, FRACTIONAL EXCRETION 16.0 Normal [facility] Comment on above: Performed By: #### L AB374, [id number], MYI678, WVR035 ####Cuff Cutter: LESLEE HERNANDEZ ([id number])[facility] (HLAB)[address] [place] [address] CHLORIDE, URINE, TUBULAR REABSORPTION 0.8 Normal [facility] Comment on above: Performed By: #### L AB374, EGV647, WOO710, MDR399 ####Cuff Cutter: LESLEE HERNANDEZ ([id number])[facility] (HLAB)[address] [place] [address] [place] CREATININE, URINE 18.7 mg/dL Low 63.0-166.0 [facility] Comment on above: Performed By: #### L AB374, WQM012, YEP896, XUQ670 ####Cuff Cutter: LESLEE HERNANDEZ ([id number])[facility] (SBHLAB)[address] COMPLETE URINALYSISon 2023 BILIRUBIN, TOTAL PRESENCE IN URINE Negative Normal Negative [facility] Comment on above: Performed By: #### L AB347 ####Cuff Cutter: LESLEE HERNANDEZ ([id number])[facility] (SBHLAB)[address] Clarity (U) Clear Normal Clear [facility] Comment on above: Performed By: #### L AB347 ####Cuff Cutter: LESLEE HERNANDEZ ([id number])[facility] (SBHLAB)[address] Color (U) Colorless Normal Lt. Yellow [facility] Comment on above: Performed By: #### L AB347 ####Cuff Cutter: LESLEE HERNANDEZ ([id number])[facility] GLUCOSE (MG/DL) IN URINE Normal Normal Normal (<70) [facility] Comment on above: Performed By: #### L AB347 ####Cuff Cutter: LESLEE HERNANDEZ ([id number])[facility] (HLAB)[address] HEMOGLOBIN PRESENCE IN URINE Negative Normal Negative [facility] Comment on above: Performed By: #### L AB347 ####Cuff Cutter: LESLEE HERNANDEZ ([id number])[facility] (HLAB)[address] Ketones Ql (U) Negative Normal Negative [facility] Comment on above: Performed By: #### L AB347 ####Cuff Cutter: LESLEE HERNANDEZ ([id number])[facility] (HLAB)[address] LEUKOCYTE ESTERASE PRESENCE IN URINE BY TEST STRIP Negative Normal Negative [facility] Comment on above: Performed By: #### L AB347 ####Cuff Cutter: LESLEE HERNANDEZ ([id number])[facility] MCFADDENMarguerite (SBHLAB)[address] [place] [address] [place] NITRITE PRESENCE IN URINE Negative Normal Negative [facility] Comment on above: Performed By: #### L AB347 ####Cuff Cutter: LESLEE HERNANDEZ ([id number])[facility]ILL[facility] K[facility]REHOB[facility] SERVICESMarguerite (SBHLAB)[address] pH (U) 5.5 [pH] Normal 5.0-8.0 [facility] Comment on above: Performed By: #### L AB347 ####Cuff Cutter: LESLEE HERNANDEZ ([id number])[facility]ILL[facility] [place]AMANT (SBHLAB)[address] Protein (U) [Mass/Vol] Negative Normal Negative [facility] Comment on above: Performed By: #### L AB347 ####Cuff Cutter: LESLEE HERNANDEZ ([id number])[facility] (SBHLAB)[address] Specific gravity (U) [Rel density] 1.007 Normal 1.005-1.030 [facility] Comment on above: Performed By: #### L AB347 ####Cuff Cutter: LESLEE HERNANDEZ ([id number])[facility]REH[facility] SERVICESMarguerite (SBHLAB)[address] UROBILINOGEN (MG/DL) IN URINE Normal Normal Normal (0-1) [facility] Comment on above: Performed By: #### L AB347 ####Cuff Cutter: LESLEE HERNANDEZ ([id number])[facility] (SBHLAB)[address] COMPREHENSIVE METABOLIC PANE Ming 06-15-2024 Albumin [Mass/Vol] 3.0 g/dL Low 3.5-5.0 [facility] Comment on above: Performed By: #### L AB17, XKY792, MEY089 ####Cuff Cutter: LESLEE HERNANDEZ ([id number])[facility] BOGDANN (SBHLAB)[address] ALP [Catalytic activity/Vol] 110 U/L Normal 40-150 [facility] Comment on above: Performed By: #### L AB17, ZNM513, YRF369 ####Cuff Cutter: LESLEE HERNANDEZ ([id number])[facility]ILLKeyon MCF[place]ENN (SBHLAB)[address] [place] [address] [place] ALT [Catalytic activity/Vol] 96 U/L High <40 [facility] Comment on above: Performed By: #### L AB17, DRR674, UDX464 ####Cuff Cutter: LESLEE HERNANDEZ ([id number])[facility]A LELOREHOBOTH MCK[facility] CH[facility]ALTH CARE SERVICESN (SBHLAB)[address] Anion gap [Moles/Vol] 15 mmol/L High 3-13 [facility] Comment on above: Performed By: #### L AB17, CET698, BIH008 ####Cuff Cutter: LESLEE HERNANDEZ ([id number])[facility]ILL[facility] K[facility]REHOB[facility] SERVICESN (SBHLAB)[address] AST [Catalytic activity/Vol] 31 U/L Normal <34 [facility] Comment on above: Performed By: #### L AB17, CFN041, RAK862 ####Cuff Cutter: LESLEE HERNANDEZ ([id number])[facility] K[facility]REH[facility] SERVICESN (SBHLAB)[address] [place] [address] [place] Bilirubin [Mass/Vol] 1.6 mg/dL High <1.2 [facility] Comment on above: Performed By: #### L AB17, QFU950, MDB092 ####Cuff Cutter: LESLEE HERNANDEZ ([id number])[facility] (SBHLAB)[address] [place] [address] [place] Calcium [Mass/Vol] 8.9 mg/dL Normal 8.4-10.2 [facility] Comment on above: Performed By: #### L AB17, HVS947, EIU951 ####Cuff Cutter: LESLEE HERNANDEZ ([id number])[facility] (SBHLAB)[address] [place] [address] [place] Chloride [Moles/Vol] 103 mmol/L Normal 98-107 [facility] Comment on above: Performed By: #### L AB17, XIG523, UBW631 ####Cuff Cutter: LESLEE HERNANDEZ ([id number])[facility]ILLKey[facility] MCFADDENN (SBHLAB)[address] CO2 [Moles/Vol] 26 mmol/L Normal 22-29 [facility] Comment on above: Performed By: #### L AB17, TAR087, TNX461 ####Cuff Cutter: LESLEE HERNANDEZ ([id number])[facility]ILLKeyon [place] (SBHLAB)[address] Creatinine [Mass/Vol] 2.41 mg/dL High 0.72-1.25 [facility] Comment on above: Performed By: #### L AB17, LSR348, GEE496 ####Cuff Cutter: LESLEE HERNANDEZ ([id number])[facility] [place] (SBHLAB)[address] GLOMERULAR FILTRATION RATE ML/MIN/1.73 SQ M.PREDICTED 32.7 mL/min/1.73m*2 Low >60.0 [facility] Comment on above: Result Comment: Calc ulation based on the Chronic Kidney Disease Epidemiology Collaboration (CKD-EPI) equation refit without adjustment for race Performed By: #### L AB17, QUX176, WXJ325 ####Cuff Cutter: LESLEE HERNANDEZ ([id number])[facility]ILLKey[facility] MCF[place]ENN (SBHLAB)[address] [place] [address] [place] Glucose [Mass/Vol] 103 mg/dL High 74-100 [facility] Comment on above: Performed By: #### L AB17, SME056, CLJ461 ####Cuff Cutter: LESLEE HERNANDEZ ([id number])[facility] MCFADDEN (SBHLAB)[address] [place] [address] [place] Potassium [Moles/Vol] 4.1 mmol/L Normal 3.5-5.1 [facility] Comment on above: Result Comment: [facility] potassium values may be up to 0.5 mmol/L lower than serum values. Performed By: #### L AB17, YJJ888, UEG757 ####Cuff Cutter: LESLEE TORRESCER ([id number])[facility]A [place] (SBHLAB)[address] Protein [Mass/Vol] 5.7 g/dL Low 6.4-8.3 [facility] Comment on above: Performed By: #### L AB17, SJU366, XGL427 ####Cuff Cutter: LESLEE HERNANDEZ ([id number])[facility] [place] (SBHLAB)[address] Sodium [Moles/Vol] 144 mmol/L Normal 136-145 [facility] Comment on above: Performed By: #### L AB17, YMX289, TZJ972 ####Cuff Cutter: LESLEE HERNANDEZ ([id number])[facility] (SBHLAB)[address] Urea nitrogen [Mass/Vol] 37 mg/dL High 8-21 [facility] Comment on above: Performed By: #### L AB17, LCE827, UJL287 ####Cuff Cutter: LESLEE TURKTYRONE ([id number])[facility] (SBHLAB)[address] Comprehensive metabolic 1998 panelOrdered By: Alexandra Sin on 06-15-2024 Albumin [Mass/Vol] 3 g/dL Low 3.5 - 5.0 g/dL [facility] ALP [Catalytic activity/Vol] 110 U/L 40 - 150 U/L [facility] ALT [Catalytic activity/Vol] 96 U/L High NINF - 40 U/L [facility] Anion gap [Moles/Vol] 15 mmol/L High 3 - 13 mmol/L [facility] AST [Catalytic activity/Vol] 31 U/L NINF - 34 U/L [facility] Bilirubin [Mass/Vol] 1.6 mg/dL High NINF - 1.2 mg/dL [facility] Calcium [Mass/Vol] 8.9 mg/dL 8.4 - 10. 2 mg/dL [facility] Chloride [Moles/Vol] 103 mmol/L 98 - 10 7 mmol/L [facility] CO2 [Moles/Vol] 26 mmol/L 22 - 29 mmol/L [facility] Creatinine [Mass/Vol] 2.41 mg/dL High 0.72 - 1.25 mg/dL [facility] GFR/1.73 sq M.predicted (S/P/Bld) [Vol rate/Area] 32.7 mL/min Low - PINF [facility] Comment on above: Calculation based on the Chronic Kidney Disease Epidemiology Collaboration (CKD-EPI) equation refit without adjustment for race Glucose [Mass/Vol] 103 mg/dL High 74 - 100 mg/dL [facility] Interpretation and review of laboratory results Abnormal [facility] Potassium [Moles/Vol] 4.1 mmol/L 3.5 - 5.1 mmol/L [facility] Comment on above: Plasma potassium heidi ues may be up to 0.5 mmol/L lower than serum values. Protein [Mass/Vol] 5.7 g/dL Low 6.4 - 8.3 g/dL [facility] Sodium [Moles/Vol] 144 mmol/L 136 - 145 mmol/L [facility] Urea nitrogen [Mass/Vol] 37 mg/dL High 8 - 21 mg/dL [facility] Consulton 06-15-2024 Consult Normal [facility] - Chemistry and C hemistry - challengeon 06-15-2024 Sodium (24H U) [Mass/Vol] 118 mmol/L [facility] Chloride (U) [Moles/Vol] 128 mmol/L [facility] TSH Qn 1.52 m[IU]/L [facility] Magnesium [Mass/Vol] 1.8 mg/dL 1.6 - 2 .6 mg/dL [facility] Laboratory - Urinalysison Protein (U) [Mass/Vol] mg/dL NINF - 14 mg/dL [facility] MAGNESIUMon 06-15-2024 Magnesium [Mass/Vol] 1.8 mg/dL Normal 1.6-2.6 [facility] Comment on above: Result Comment: ALEJANDRO R COMMENTS:Higher values can be expected in females during menses. Performed By: #### L AB17, RRL095, OHV169 ####Cuff Cutter: LESLEE HERNANDEZ ([id number])[facility] (SBHLAB)[address] MICROALBUMIN / CREATININE UR INE RATIOon 06-15-2024 MICROALBUMIN, URINE 5.0 ug/mL Normal [facility] Comment on above: Result Comment: ALEJANDRO R COMMENTS:Microalbumin concentrations <30 are considered normal, 30-300 are considered microalbuminuria (or risk of diabetic nephropathy), and >300 are considered clinical albuminuria (clinical nephropathy).Diabetes Care,27, Supplement 1, [id number] Performed By: #### L AB374, VTJ192, IGC474, KNI260 ####Cuff Cutter: LESLEE HERNANDEZ ([id number])[facility] (SBHLAB)[address] [place] [address] MICROALBUMIN/CREATININ E RATIO 27 mg/g Normal <30 [facility] Comment on above: Performed By: #### L AB374, YYQ524, KLH058, AZH126 ####Cuff Cutter: LESLEE HERNANDEZ ([id number])[facility] (SBHLAB)[address] [place] [address] Magnesium [Mass/Vol]on 06-15 Interpretation and review of laboratory results Normal [employer] [facility] Higher values can be expected in females during menses. [employer] [facility] Microalbumin/Creatinine rati o panel (U)on 06-15-2024 Albumin DL <= 20 mg/L (U) [Mass/Vol] 5 ug/mL [facility] Albumin/Creatinine DL <= 20 mg/L (U) [Mass ratio] 27 mg/g NINF - 30 mg/g [employer] [facility] Microalbumin concentrations <30 are considered normal, 30-300 are considered microalbuminuria (or risk of diabetic nephropathy), and >300 are considered clinical albuminuria (clinical nephropathy). Diabetes Care,27, Supplement 1, [id number] [facility] No Panel Informationon 06-15 CREATININE, URINE 18.7 mg/dL Low 63.0 - 166 .0 mg/dL [facility] Interpretation and review of laboratory results Abnormal [facility] SODIUM, URINE, FRACTIONAL EXCRETION 10.6 [facility] SODIUM, URINE, TUBULAR REABSORPTION 0.9 [facility] CHLORIDE, URINE, FRACTIONAL EXCRETION 16 [facility] CHLORIDE, URINE, TUBULAR REABSORPTION 0.8 [facility] Nursing Noteon 06-15-2024 Nursing Note Patient is resting i n bed. Bed in low position and locked with call light in reach. Normal [facility] PROTEIN, URINE, RANDOMon TOTAL PROTEIN, UR <7 Normal <14 [facility] Comment on above: Performed By: #### L AB374, OGF753, TBC174, ACZ879 ####Cuff Cutter: LESLEE HERNANDEZ ([id number])[facility] ([facility])[address] [place] [address] Progress Noteon 06-15-2024 Progress Note Normal [facility] Progress Note Normal [facility] SODIUM, URINE, RANDOMon 05-30 Sodium (U) [Moles/Vol] 118 mmol/L Normal [facility] Comment on above: Performed By: #### L AB374, NYL978, WFN258, ZQF144 ####Cuff Cutter: LESLEE HERNANDEZ ([id number])[facility] ([facility])[address] [place] [address] SODIUM, URINE, FRACTIONAL EXCRETION 10.6 Normal [facility] Comment on above: Performed By: #### L AB374, ZTM636, BDE447, PKW084 ####Cuff Cutter: LESLEE HERNANDEZ ([id number])[facility] (HLAB)[address] [place] [address] SODIUM, URINE, TUBULAR REABSORPTION 0.9 Normal [facility] Comment on above: Performed By: #### L AB374, HYV299, WZL327, ZIB001 ####Cuff Cutter: LESLEE HERNANDEZ ([id number])[facility] (HLAB)[address] [place] [address] THYROID STIMULATING HORMONEo n 06-15-2024 THYROID STIMULATING HORMONE 1.52 uIU/mL Normal 0.35-4.94 [facility] Comment on above: Performed By: #### L AB17, AYR491, NRD438 ####Cuff Cutter: LESLEE HERNANDEZ ([id number])[facility] (SBHLAB)[address] TSH Qnon 06-15-2024 Interpretation and review of laboratory results Normal [facility] US Heart TransthoracicOrdere d By: Ofelia Villalobos on 06-15-2024 Ao Root Index 1.39 cm/m2 [facility] Work Phone: [phone] Aortic Arch 3 cm [facility] Work Phone: [phone] Aortic Root 2.8 cm [facility] Work Phone: Aortic Sinus Valsalva 2.8 cm [facility] Work Phone: Aortic Sinus Valsalva Index 1.39 cm/m2 [facility] Work Phone: Ascending Aorta 3.2 cm [facility] Work Phone: Ascending Aorta Index 1.58 cm/m2 [facility] Work Phone: AV Area by Peak Velocity 2.9 cm2 [facility] Work Phone: AV Area by VTI 2.9 cm2 [facility] Work Phone: AV Mean Gradient 1 mmHg [facility] Work Phone: AV Mean Velocity 0.5 m/s [facility] Work Phone: AV Peak Gradient 2 mmHg [facility] Work Phone: AV Peak Velocity 0.7 m/s [facility] Work Phone: AV Velocity Ratio 1 [facility] Work Phone: AV VTI 8 cm [facility] Work Phone: EMILY/BSA Peak Velocity 1.4 cm2/m2 [facility] Work Phone: EMILY/BSA VTI 1.4 cm2/m2 [facility] Work Phone: E/E' Lateral 9 [facility] Work Phone: E/E' Ratio (Averaged) 13.5 [facility] Work Phone: E/E' Septal 18 [facility] Work Phone: EF BP 20 % Abnormal 55 - 100 % [facility] Work Phone: Est. RA Pressure 15 mmHg [facility] Work Phone: Fractional Shortening 2D 9 % 28 - 44 % [facility] Work Phone: Global Longitudinal Strain -5 % [facility] Work Phone: Interpretation and review of laboratory results Abnormal [facility] Work Phone: IVC Diameter 2.3 cm [facility] Work Phone: IVSd 1.1 cm Abnormal 0.6 - 1.0 cm [facility] Work Phone: LA Diameter 4.7 cm [facility] Work Phone: LA Size Index 2.33 cm/m2 [facility] [email or web address] Work Phone: LA Volume 2C 116 mL Abnormal 18 - 58 mL [facility] Work Phone: LA Volume 4C 105 mL Abnormal 18 - 58 mL [facility] Work Phone: LA Volume A/L 124 mL [facility] [email or web address] Work Phone: LA Volume BP 115 mL Abnormal 18 - 58 mL [facility] Work Phone: LA Volume Index 2C 57 mL/m2 Abnormal 16 - 34 mL/m2 [facility] Work Phone: LA Volume Index 4C 52 mL/m2 Abnormal 16 - 34 mL/m2 [facility] Work Phone: LA Volume Index A/L 61 mL/m2 16 - 34 mL/m2 [facility] Work Phone: LA Volume Index BP 57 ml/m2 Abnormal 16 - 34 ml/m2 [facility] Work Phone: LA/AO Root Ratio 1.68 [facility] Work Phone: LV E' Lateral Velocity 10 cm/s [facility] Work Phone: LV E' Septal Velocity 5 cm/s [facility] Work Phone: LV EDV A2C 228 mL [facility] Work Phone: LV EDV A4C 221 mL [facility] Work Phone: LV EDV BP 227 mL Abnormal 67 - 155 mL [facility] Work Phone: LV EDV Index A2C 113 mL/m2 [facility] Work Phone: LV EDV Index A4C 109 mL/m2 [facility] Work Phone: LV EDV Index BP 112 mL/m2 [facility] Work Phone: LV Ejection Fraction A2C 22 % [facility] Work Phone: LV Ejection Fraction A4C 19 % [facility] Work Phone: LV ESV A2C 177 mL [facility] Work Phone: LV ESV A4C 180 mL [facility] Work Phone: LV ESV BP 181 mL Abnormal 22 - 58 mL [facility] Work Phone: LV ESV Index A2C 88 mL/m2 [facility] Work Phone: LV ESV Index A4C 89 mL/m2 [facility] Work Phone: LV ESV Index BP 90 mL/m2 [facility] Work Phone: LV Mass 2D 288.7 g Abnormal 88 - 224 g [facility] Work Phone: LV Mass 2D Index 142.9 g/m2 Abnormal 49 - 115 g/m2 [facility] Work Phone: LV RWT Ratio 0.46 [facility] Work Phone: LVIDd 5.7 cm 4.2 - 5.9 cm [facility] Work Phone: LVIDd Index 2.82 cm/m2 [facility] [employer] Work Phone: LVIDs 5.2 cm [facility] Work Phone: LVIDs Index 2.57 cm/m2 [facility] Work Phone: LVOT Area 3.1 cm2 [facility] Work Phone: LVOT Cardiac Output 2.4 liter/minute [facility] Work Phone: LVOT Diameter 2 cm [facility] [employer] Work Phone: LVOT Mean Gradient 1 mmHg [facility] Work Phone: LVOT Peak Gradient 2 mmHg [facility] Work Phone: LVOT Peak Velocity 0.7 m/s [facility] [employer] Phone: LVOT Stroke Volume Index 12.1 mL/m2 [facility] Work Phone: LVOT SV 24.5 ml [facility] Work Phone: LVOT VTI 7.8 cm [facility] Work Phone: LVOT:AV VTI Index 0.98 [facility] [employer] [facility] Work Phone: LVPWd 1.3 cm Abnormal 0.6 - 1.0 cm [facility] Work Phone: MR VTI 114.6 cm [facility] Work Phone: MV A Velocity 0.33 m/s [facility] [employer] Work Phone: MV E Velocity 0.9 m/s [facility] [employer] Work Phone: [phone] MV E Wave Deceleration Time 86.1 ms [facility] Work Phone: MV E/A 2.73 [facility] Work Phone: MV Nyquist Velocity 36 cm/s [facility] Work Phone: MV Regurg Velocity PISA 4.3 m/s [facility] Work Phone: Pulmonary Artery EDP 8 mmHg [facility] Work Phone: RA Area 4C 98.5 mL [facility] Work Phone: [phone] RA Area 4C 91.2 mL [facility] Work Phone: [phone] RV Basal Dimension 5.4 cm [facility] Work Phone: [phone] RV Free Wall Peak S' 10 cm/s [facility] Work Phone: [phone] RV Longitudinal Dimension 9.1 cm [facility] Work Phone: [phone] RV Mid Dimension 3.1 cm [facility] Work Phone: [phone] RVSP 46 mmHg [facility] Work Phone: [phone] Sinotubular Junction 2.5 cm [facility] Work Phone: [phone] TAPSE 2 cm 1.7 cm [facility] Work Phone: [phone] TR Max Velocity 2.78 m/s [facility] Work Phone: [phone] TR Peak Gradient 31 mmHg [facility] Work Phone: [phone] [facility] Work Phone: [phone] Heart Transthoracicon Left Ventricle: Left ventricle is dilated. Mildly increased wall thickness. Severely reduced left ventricular systolic function. EF by 2D Simpsons Biplane is 20%. Global longitudinal strain is reduced with a value of -5.0%. Severe global hypokinesis present. Right Ventricle: Right ventricle is dilated. Moderately reduced systolic function. Aortic Valve: Mild (1+) regurgitation. Mitral Valve: Moderate (2+) regurgitation with an eccentrically directed jet and and may underestimate severity. Tricuspid Valve: Moderately elevated RVSP. RVSP is 46 mmHg. Pericardium: Small (<1 cm) pericardial effusion present. Findings do not support cardiac tamponade. IVC/Hepatic Veins: IVC diameter is dilated and decreases less than 50% during inspiration; therefore the estimated right atrial pressure is elevated (~15 mmHg). Slow blood flow, echogenic. Left Ventricle Left ventricle is dilated. Mildly increased wall thickness. Severely reduced left ventricular systolic function. EF by 2D Simpsons Biplane is 20%. Global longitudinal strain is reduced with a value of -5.0%. Severe global hypokinesis present. Right Ventricle Right ventricle is dilated. Moderately reduced systolic function. Left Atrium Left atrium size is severely increased (LA volume index >48 mL/m2).LA Vol Index A/L is 61 mL/m2. Right Atrium Right atrium is moderately dilated. IVC/SVC IVC diameter is dilated and decreases less than 50% during inspiration; therefore the estimated right atrial pressure is elevated (~15 mmHg). Slow blood flow, echogenic. Mitral Valve Valve structure is normal. Moderate (2+) regurgitation with an eccentrically directed jet and and may underestimate severity. No stenosis noted. Tricuspid Valve Valve structure is normal. Mild to moderate (1-2+) regurgitation. Moderately elevated RVSP. RVSP is 46 mmHg. Aortic Valve Trileaflet. No cusp thickening. No cusp calcification. Mild (1+) regurgitation. No stenosis. Pulmonic Valve Valve structure is normal. Mild to moderate (1-2+) regurgitation. Ascending Aorta Normal sized sinuses of Valsalva and ascending aorta. Pericardium Small (<1 cm) pericardial effusion present. Findings do not support cardiac tamponade. Septum No interatrial shunt visualized on color Doppler. Study Details Image quality: good. Additional technique includes myocardial strain. Heart rate: 109 bpm. Blood pressure: 120/90 mmHg. Technical qualifiers: Technically difficult study due to low parasternal window. No contrast was given. Echo performed by [employer] thony Hercules under direct supervision. CV CPACS Urinalysis complete panel (U )on 06-15-2024 Bilirubin Ql (U) Negative Negative mg/dL [facility] Clarity (U) Clear Clear [facility] Color (U) Colorless Lt. Yellow [facility] Glucose Ql (U) Normal Normal (<70) mg/dL [facility] Hemoglobin Ql (U) Negative Negative mg/dL [facility] Interpretation and review of laboratory results Normal [facility] Ketones (U) [Mass/Vol] Negative Negat dai mg/dL [facility] Leukocyte esterase Test strip Ql (U) Negative Negative Nicky/uL [facility] Nitrite Ql (U) Negative Negative [facility] th pH (U) 5.5 [pH] 5.0 - 8.0 pH [facility] Protein (U) [Mass/Vol] Negative Negat dai mg/dL [facility] Specific gravity (U) [Rel density] 1.007 1.005 - 1.030 [facility] Urobilinogen (U) [Mass/Vol] Normal Normal (0-1) mg/dL [facility] [id number] 06-14-2024 [id number] Normal [facility] BASIC METABOLIC PANELon 05-30 Anion gap [Moles/Vol] 11 mmol/L Normal 3-13 [facility] Comment on above: Performed By: #### L AB18, LAB15 ####Cuff Cutter: LESLEE HERNANDEZ ([id number])[facility] [place] ([facility])[address] Calcium [Mass/Vol] 7.2 mg/dL Low 8.4-10.2 [facility] Comment on above: Performed By: #### L AB18, LAB15 ####Cuff Cutter: LESLEE HERNANDEZ ([id number])[facility] [place] ([facility])[address] Chloride [Moles/Vol] 118 mmol/L High 98-107 [facility] Comment on above: Performed By: #### L AB18, LAB15 ####Cuff Cutter: LESLEE HERNANDEZ ([id number])[facility] [place] (SB[facility])[address] CO2 [Moles/Vol] 15 mmol/L Low 22-29 [facility] Comment on above: Performed By: #### L AB18, LAB15 ####Cuff Cutter: LESLEE HERNANDEZ ([id number])[facility] [place] ([facility])[address] Creatinine [Mass/Vol] 1.74 mg/dL High 0.72-1.25 [facility] Comment on above: Performed By: #### L AB18, LAB15 ####Cuff Cutter: LESLEE HERNANDEZ ([id number])[facility] [place] ([facility])[address] GLOMERULAR FILTRATION RATE ML/MIN/1.73 SQ M.PREDICTED 48.4 mL/min/1.73m*2 Low >60.0 [facility] Comment on above: Result Comment: Calc ulation based on the Chronic Kidney Disease Epidemiology Collaboration (CKD-EPI) equation refit without adjustment for race Performed By: #### L AB18, LAB15 ####Cuff Cutter: LESLEE HERNANDEZ ([id number])[facility] [place] (SBHLAB)[address] Glucose [Mass/Vol] 81 mg/dL Normal 74-100 [facility] Comment on above: Performed By: #### L AB18, LAB15 ####Cuff Cutter: LESLEE HERNANDEZ ([id number])[facility] [place] (SBHLAB)[address] Potassium [Moles/Vol] 3.6 mmol/L Normal 3.5-5.1 [facility] Comment on above: Result Comment: [facility] potassium values may be up to 0.5 mmol/L lower than serum values. Performed By: #### L AB18, LAB15 ####Cuff Cutter: LESLEE HERNANDEZ ([id number])[facility] (SBHLAB)[address] Sodium [Moles/Vol] 144 mmol/L Normal 136-145 [facility] Comment on above: Performed By: #### L AB18, LAB15 ####Cuff Cutter: LESLEE HERNANDEZ ([id number])[facility] (SBHLAB)[address] Urea nitrogen [Mass/Vol] 32 mg/dL High 8-21 [facility] Comment on above: Performed By: #### L AB18, LAB15 ####Cuff Cutter: LESLEE HERNANDEZ ([id number])[facility] (SBHLAB)[address] Basic metabolic 1998 panelOr dered By: Krista Campbell on 06-14-2024 Anion gap [Moles/Vol] 11 mmol/L 3 - 13 mmol/L [facility] Calcium [Mass/Vol] 7.2 mg/dL Low 8.4 - 10. 2 mg/dL [facility] Chloride [Moles/Vol] 118 mmol/L High 98 - 10 7 mmol/L [facility] CO2 [Moles/Vol] 15 mmol/L Low 22 - 29 mmol/L [facility] Creatinine [Mass/Vol] 1.74 mg/dL High 0.72 - 1.25 mg/dL [facility] GFR/1.73 sq M.predicted (S/P/Bld) [Vol rate/Area] 48.4 mL/min Low - PINF [facility] Comment on above: Calculation based on the Chronic Kidney Disease Epidemiology Collaboration (CKD-EPI) equation refit without adjustment for race Glucose [Mass/Vol] 81 mg/dL 74 - 100 mg/dL [facility] Interpretation and review of laboratory results Abnormal [facility] Potassium [Moles/Vol] 3.6 mmol/L 3.5 - 5.1 mmol/L [facility] Comment on above: Plasma potassium heidi ues may be up to 0.5 mmol/L lower than serum values. Sodium [Moles/Vol] 144 mmol/L 136 - 145 mmol/L [facility] Urea nitrogen [Mass/Vol] 32 mg/dL High 8 - 21 mg/dL [facility] CT ABDOMEN PELVIS WO IV CONT RASTon 06-14-2024 CT ABDOMEN PELVIS WO IV CONTRAST Normal [facility] CT Abdomen and Pelvis WO con traston 06-14-2024 1. Small amount of nonspecific free fluid in the dependent pelvis. 2. Cardiomegaly. Report Dictated on Electronically Signed By: Juan Pereira MD Electronically Signed Date/Time: 06/14/2024 10:23 AM [facility] 1980 [id number] Exam Date/Time: 06/14/2024 09:41 Procedure: CT ABDOMEN PELVIS WO IV CONTRAST Ordering Provider: CELAYA HUY Reason For Exam: Abdominal pain, acute, nonlocalized CT ABDOMEN AND PELVIS WITHOUT IV CONTRAST CLINICAL INDICATION: Abdominal pain. TECHNIQUE: Multidetector axial CT images through the abdomen and pelvis were obtained without IV contrast. No oral contrast was administered. Images were reconstructed in sagittal and coronal planes. Dose reduction was employed with automated exposure control. COMPARISON: None. FINDINGS: This examination is limited for the evaluation of solid organs and vascular structures due to the lack of intravenous contrast. Lower thorax: Cardiomegaly. Otherwise unremarkable. Stomach: Unremarkable. Liver: Normal size and contours. Normal hepatic parenchyma. No focal lesion. Biliary tree: Unremarkable gallbladder by CT. No biliary dilatation Spleen: Normal Adrenals: Normal. Pancreas: Normal. Right kidney and collecting system: No contour abnormality or focal renal lesion identified. No calculi, hydronephrosis or ureteral dilatation. Left kidney and collecting system: No contour abnormality or focal renal lesion identified. No calculi, hydronephrosis or ureteral dilatation. Free air or fluid: Small amount of nonspecific free fluid in the dependent pelvis. No free air. Mesenteric/retroperit oreilly: No adenopathy or inflammation. Aorta: Normal caliber. Bowel: Normal appendix. No inflammatory change or bowel dilatation is noted. Bladder: No calculi or filling defects. Urinary bladder is physiologically distended. Inguinal: No lymphadenopathy. Abdominal wall/soft tissues: Fat containing umbilical hernia. Osseous structures: No osseous abnormalities. [facility] Juan Pereira MD - 06/14/2024 Patient Name: [facility]LO MEDINA : 1980 [id number] Exam Date/Time: 06/14/2024 09:41 Procedure: CT ABDOMEN PELVIS WO IV CONTRAST Ordering Provider: CELAYA HUY Reason For Exam: Abdominal pain, acute, nonlocalized CT ABDOMEN AND PELVIS WITHOUT IV CONTRAST CLINICAL INDICATION: Abdominal pain. TECHNIQUE: Multidetector axial CT images through the abdomen and pelvis were obtained without IV contrast. No oral contrast was administered. Images were reconstructed in sagittal and coronal planes. Dose reduction was employed with automated exposure control. COMPARISON: None. FINDINGS: This examination is limited for the evaluation of solid organs and vascular structures due to the lack of intravenous contrast. Lower thorax: Cardiomegaly. Otherwise unremarkable. Stomach: Unremarkable. Liver: Normal size and contours. Normal hepatic parenchyma. No focal lesion. Biliary tree: Unremarkable gallbladder by CT. No biliary dilatation Spleen: Normal Adrenals: Normal. Pancreas: Normal. Right kidney and collecting system: No contour abnormality or focal renal lesion identified. No calculi, hydronephrosis or ureteral dilatation. Left kidney and collecting system: No contour abnormality or focal renal lesion identified. No calculi, hydronephrosis or ureteral dilatation. Free air or fluid: Small amount of nonspecific free fluid in the dependent pelvis. No free air. Mesenteric/retroperit oreilly: No adenopathy or inflammation. Aorta: Normal caliber. Bowel: Normal appendix. No inflammatory change or bowel dilatation is noted. Bladder: No calculi or filling defects. Urinary bladder is physiologically distended. Inguinal: No lymphadenopathy. Abdominal wall/soft tissues: Fat containing umbilical hernia. Osseous structures: No osseous abnormalities. IMPRESSION: 1. Small amount of nonspecific free fluid in the dependent pelvis. 2. Cardiomegaly. Report Dictated on Electronically Signed By: Juan Pereira MD Electronically Signed Date/Time: 06/14/2024 10:23 AM EST [facility] Radiology Study observation (narrative) [facility] CT Abdomen and Pelvis WO con trastOrdered By: Juan Pereira on 06-14-2024 [facility] Work Phone: Consulton 06-14-2024 Consult Normal [facility] ECG 12-LEADon 06-14-2024 ECG 12-LEAD IMPRESSION: Sinus tachycardia Left atrial enlargement Left ventricular hypertrophy ST elevation secondary to IVCD Electronically Signed On 06-14-2024 02:04:38 EST by Ventura Mcconnell Normal [facility] LIPID PANELon 06-14-2024 Cholesterol [Mass/Vol] 130 mg/dL Normal <200 [facility] Comment on above: Performed By: #### L AB18, LAB15 ####Cuff Cutter: LESLEE HERNANDEZ ([id number])[facility] ([facility])[address] [place] [address] Cholesterol in HDL [Mass/Vol] 16 mg/dL Low >=60 [facility] Comment on above: Performed By: #### L AB18, LAB15 ####Cuff Cutter: LESLEE HERNANDEZ ([id number])[facility] ([facility])[address] [place] [address] Cholesterol.total/Chol esterol in HDL [Mass ratio] 8 {ratio} Normal [facility] Comment on above: Result Comment: Ref Range:< 3 Low Risk for CHD3-6 Mod Risk for CHD> 6 High Risk for CHD Performed By: #### L AB18, LAB15 ####Cuff Cutter: LESLEE MCNEILLRAMON ([id number])[facility] BARBREHOB[facility]N (SBHLAB)[address] LOW DENSITY LIPOPROTEIN 100 mg/dL High 0-<100 [facility] Comment on above: Performed By: #### L AB18, LAB15 ####Cuff Cutter: LESLEE MCNEILLRAMON ([id number])[facility] BARBREHOB[facility]N (SBHLAB)[address] NON-HDL CHOLESTEROL, CALCULATED 114 Normal <130 [facility] Comment on above: Performed By: #### L AB18, LAB15 ####Cuff Cutter: LESLEE MCNEILLRAMON ([id number])[facility] (SB[facility])[address] Triglyceride [Mass/Vol] 68 mg/dL Normal <150 [facility] Comment on above: Performed By: #### L AB18, LAB15 ####Cuff Cutter: LESLEE HERNANDEZ ([id number])[facility] ([facility])[address] VERY LOW DENSITY LIPOPROTEIN, CALCULATED 14 mg/dL Normal <=30 [facility] Comment on above: Performed By: #### L AB18, LAB15 ####Cuff Cutter: LESLEE HERNANDEZ ([id number])[facility] ([facility])[address] Lipid 1996 panelon 4 Cholesterol [Mass/Vol] 130 mg/dL NINF - 200 mg/dL [facility] Cholesterol in HDL [Mass/Vol] 16 mg/dL Low 60 - PINF mg/dL [facility] Cholesterol in LDL [Mass/Vol] 100 mg/dL High 0 - <100 [facility] Cholesterol.total/Chol esterol in HDL [Mass ratio] 8 {ratio} [facility] Comment on above: Ref Range: < 3 Low Risk for CHD 3-6 Mod Risk for CHD > 6 High Risk for CHD Interpretation and review of laboratory results Abnormal [facility] NON-HDL CHOLESTEROL, CALCULATED 114 NINF - 130 [facility] Triglyceride [Mass/Vol] 68 mg/dL NINF - 150 mg/dL [facility] VERY LOW DENSITY LIPOPROTEIN, CALCULATED 14 mg/dL NINF - 30 mg/dL [facility] No Panel Informationon 06-14 Acute occlusive deep vein thrombosis in the right popliteal vein. Acute occlusive deep vein thrombosis in the right soleal vein. Acute occlusive deep vein thrombosis in the right peroneal vein. Acute occlusive deep vein thrombosis in the left peroneal vein. No evidence of superficial thrombosis in the right lower extremity. No evidence of superficial thrombosis in the left lower extremity. Right Lower Venous No evidence of superficial thrombosis in the right lower extremity. Common Femoral Vein: Patent, normal phasicity, spontaneous, normal augmentation, compressible and pulsatile flow. Greater Saphenous Vein: Entire vessel patent, compressible Saphenofemoral Junction: Patent, compressible. Small Saphenous Vein: Not visualized. Profunda Femoral Vein: Patent. Femoral Vein: Patent, normal phasicity, spontaneous, normal augmentation, compressible Middle Femoral Vein: Pulsatile flow. Popliteal Vein: Acute occlusive thrombus. Pulsatile flow. Gastrocnemius Vein: Patent, compressible. Soleal Vein: Acute occlusive thrombus. Posterior Tibial Vein: Patent, compressible. Peroneal Vein: Acute occlusive thrombus. Left Lower Venous No evidence of superficial thrombosis in the left lower extremity. Common Femoral Vein: Patent, normal phasicity, spontaneous, normal augmentation, compressible and pulsatile flow. Greater Saphenous Vein: Enitre vessel patent, compressible. Saphenofemoral Junction: Patent, compressible. Small Saphenous Vein: Patent, compressible. Profunda Femoral Vein: Patent. Femoral Vein: Patent, normal phasicity, spontaneous, normal augmentation, compressible. Middle Femoral Vein: Pulsatile flow. Popliteal Vein: Patent, normal phasicity, spontaneous, normal augmentation, compressible and pulsatile flow. Gastrocnemius Vein: Patent, compressible. Soleal Vein: Patent, compressible. Posterior Tibial Vein: Patent, compressible. Peroneal Vein: Acute occlusive thrombus. Phlebotomy Program Coordinator Details A forrest scale, color Doppler imaging and spectral Doppler analysis ultrasound was performed. During the study longitudinal and transverse views were obtained. Pulsed wave doppler was performed. The exam was performed with the patient in the supine position. Overall the study quality was good. CV CPACS Sinus tachycardia Left atrial enlargement Left ventricular hypertrophy ST elevation secondary to IVCD Electronically Signed On 06-14-2024 02:04:38 EST by Ventura Mcconnell CV Ventura Johnston MD - 06/14/2024 IMPRESSION: Sinus tachycardia Left atrial enlargement Left ventricular hypertrophy ST elevation secondary to IVCD Electronically Signed On 06-14-2024 02:04:38 EST by Ventura Mcconnell [facility] Panel InformationOrdered By: Ventura Mcconnell on 06-14-2024 P [place] 69 degrees [facility] Phone: [facility] Interval 148 ms [facility] Phone: QRS [place] 31 degrees [employer] Phone: QRSD Interval 147 ms [employer] Work Phone: QT Interval 402 ms [facility] Phone: QTC Interval 539 ms [facility] Work Phone: T Wave [place] 4 degrees [employer] Phone: [employer] Phone: Progress Noteon 06-14-2024 Progress Note Normal [facility] [employer] [facility] Progress Note Normal [facility] [employer] [facility] Vital signsOrdered By: Marj Mcconnell on 06-14-2024 Heart rate 108 /min bpm [facility] Phone: 30on 06-13-2024 30 Normal [facility] BASIC METABOLIC PANELon 05-30 Anion gap [Moles/Vol] 10 mmol/L Normal 3-13 [facility] Comment on above: Performed By: #### L AB15, [id number], [id number] ####Cuff Cutter: LESLEE HERNANDEZ ([id number])[facility] ([facility])[address] [place] [address] Calcium [Mass/Vol] 8.6 mg/dL Normal 8.4-10.2 [facility] Comment on above: Performed By: #### Pedro AB15, [id number], [id number] ####Cuff Cutter: LESLEE HERNANDEZ ([id number])[facility]REHOB[facility]N (SBHLAB)[address] [place] [address] [place] Chloride [Moles/Vol] 114 mmol/L High 98-107 [facility] Comment on above: Performed By: #### Pedro AB15, [id number], [id number] ####Cuff Cutter: LESLEE HERNANDEZ ([id number])[facility] (SB[facility])[address] CO2 [Moles/Vol] 18 mmol/L Low 22-29 [facility] Comment on above: Performed By: #### Pedro AB15, [id number], [id number] ####Cuff Cutter: LESLEE HERNANDEZ ([id number])[facility] (HLAB)[address] Creatinine [Mass/Vol] 2.03 mg/dL High 0.72-1.25 [facility] Comment on above: Performed By: #### Pedro JESSICA15, [id number], [id number] ####Cuff Cutter: LESLEE HERNANDEZ ([id number])[facility] ([facility])[address] GLOMERULAR FILTRATION RATE ML/MIN/1.73 SQ M.PREDICTED 40.2 mL/min/1.73m*2 Low >60.0 [facility] Comment on above: Result Comment: Calc ulation based on the Chronic Kidney Disease Epidemiology Collaboration (CKD-EPI) equation refit without adjustment for race Performed By: #### L AB15, [id number], [id number] ####Cuff Cutter: LESLEE HERNANDEZ ([id number])[facility] (HLAB)[address] [place] [address] [place] Glucose [Mass/Vol] 104 mg/dL High 74-100 [facility] Comment on above: Performed By: #### Pedro AB15, [id number], [id number] ####Cuff Cutter: LESLEE HERNANDEZ ([id number])[facility] [place] ([facility])[address] Potassium [Moles/Vol] 4.9 mmol/L Normal 3.5-5.1 [facility] Comment on above: Result Comment: TCPo tential interference from hemolysis Performed By: #### L AB15, [id number], [id number] ####Cuff Cutter: LESLEE HERNANDEZ ([id number])[facility] BARBREHOB[facility] SERVICESN (SBHLAB)[address] Sodium [Moles/Vol] 142 mmol/L Normal 136-145 [facility] Comment on above: Performed By: #### L AB15, [id number], [id number] ####Cuff Cutter: LESLEE HERNANDEZ ([id number])[facility] ([facility])[address] Urea nitrogen [Mass/Vol] 34 mg/dL High 8-21 [facility] Comment on above: Performed By: #### L AB15, [id number], [id number] ####Cuff Cutter: LESLEE HERNANDEZ ([id number])[facility] ([facility])[address] Basic metabolic 1998 panelon 06-13-2024 Anion gap [Moles/Vol] 10 mmol/L 3 - 13 mmol/L [facility] Calcium [Mass/Vol] 8.6 mg/dL 8.4 - 10. 2 mg/dL [facility] Chloride [Moles/Vol] 114 mmol/L High 98 - 10 7 mmol/L [facility] CO2 [Moles/Vol] 18 mmol/L Low 22 - 29 mmol/L [facility] Creatinine [Mass/Vol] 2.03 mg/dL High 0.72 - 1.25 mg/dL [facility] GFR/1.73 sq M.predicted (S/P/Bld) [Vol rate/Area] 40.2 mL/min Low - PINF [facility] Comment on above: Calculation based on the Chronic Kidney Disease Epidemiology Collaboration (CKD-EPI) equation refit without adjustment for race Glucose [Mass/Vol] 104 mg/dL High 74 - 100 mg/dL [facility] Interpretation and review of laboratory results Abnormal [facility] Potassium [Moles/Vol] 4.9 mmol/L 3.5 - 5.1 mmol/L [facility] Comment on above: TC Potential interference from hemolysis Sodium [Moles/Vol] 142 mmol/L 136 - 145 mmol/L [facility] Urea nitrogen [Mass/Vol] 34 mg/dL High 8 - 21 mg/dL [facility] CBC W Auto Differential pane l (Bld)Ordered By: Maritza Knowles on 06-13-2024 Basophils (Bld) [#/Vol] 0 10*3/uL 0.0 - 0.2 10*3/uL [facility] Basophils/100 WBC (Bld) 0.2 % 0.0 - 2.0 % [facility] Eosinophils (Bld) [#/Vol] 0 10*3/uL 0.0 - 0.5 10*3/uL [facility] Eosinophils/100 WBC (Bld) 0.1 % 0.0 - 6.0 % [facility] Erythrocyte distribution width (RBC) [Ratio] 14.6 % 11.5 - 15.0 % [facility] Hematocrit (Bld) [Volume fraction] 52.1 % High 40.0 - 52.0 % [facility] Hemoglobin (Bld) [Mass/Vol] 16.4 g/dL 13.0 - 18.0 g/dL [facility] Immature granulocytes (Bld) [#/Vol] 0 10*3/uL NINF - 0.1 10*3/uL [facility] Immature granulocytes/100 WBC (Bld) 0.2 % 0.0 - 2.0 % [facility] Interpretation and review of laboratory results Abnormal [facility] Lymphocytes (Bld) [#/Vol] 1.7 10*3/uL 1.0 - 4.3 10*3/uL [facility] Lymphocytes/100 WBC (Bld) 20 % 15.0 - 45.0 % [facility] MCH (RBC) [Entitic mass] 32.5 pg 26.0 - 34.0 pg [facility] MCHC (RBC) [Mass/Vol] 31.5 % 30.5 - 36.0 % [facility] MCV (RBC) [Entitic vol] 103.2 fL High 77.0 - 99.0 fL [facility] Monocytes (Bld) [#/Vol] 0.6 10*3/uL 0.0 - 0.9 10*3/uL [facility] Monocytes/100 WBC (Bld) 7.4 % 5.0 - 13.0 % [facility] Neutrophils (Bld) [#/Vol] 6.2 10*3/uL 1.8 - 7.5 10*3/uL [facility] Neutrophils/100 WBC (Bld) 72.1 % 38.0 - 82.0 % [facility] Nucleated RBC/100 WBC (Bld) [Ratio] 0 % [facility] Platelet mean volume (Bld) [Entitic vol] 10.7 fL 9.0 - 12.7 fL [facility] Platelets (Bld) [#/Vol] 217 10*3/uL 140 - 440 10*3/uL [facility] RBC (Bld) [#/Vol] 5.05 10*6/uL 4.40 - 5.9 0 10*6/uL [facility] WBC (Bld) [#/Vol] 8.7 10*3/uL 3.6 - 10.7 10*3/uL [facility] CBC WITH AUTO DIFFERENTIALon 06-13-2024 Basophils (Bld) [#/Vol] 0.0 10*3/uL Normal 0.0-0.2 [facility] Comment on above: Performed By: #### L [id number] ####Cuff Cutter: LESLEE HERNANDEZ ([id number])[facility] ([facility])[address] [place] [address] Basophils/100 WBC (Bld) 0.2 % Normal 0.0-2.0 [facility] Comment on above: Performed By: #### L [id number] ####Cuff Cutter: LESLEE HERNANDEZ ([id number])[facility] ([facility])[address] Eosinophils (Bld) [#/Vol] 0.0 10*3/uL Normal 0.0-0.5 [facility] Comment on above: Performed By: #### L [id number] ####Cuff Cutter: LESLEE HERNANDEZ ([id number])[facility] ([facility])[address] Eosinophils/100 WBC (Bld) 0.1 % Normal 0.0-6.0 [facility] Comment on above: Performed By: #### L [id number] ####Cuff Cutter: LESLEE TURKTYRONE ([id number])[facility]BREH[facility] (SBHLAB)[address] Erythrocyte distribution width (RBC) [Ratio] 14.6 % Normal 11.5-15.0 [facility] Comment on above: Performed By: #### L [id number] ####Cuff Cutter: LESLEE HERNANDEZ ([id number])[facility] Hematocrit (Bld) [Volume fraction] 52.1 % High 40.0-52.0 [facility] Comment on above: Performed By: #### L [id number] ####Cuff Cutter: LESLEE HERNANDEZ ([id number])[facility] ([facility])[address] Hemoglobin (Bld) [Mass/Vol] 16.4 g/dL Normal 13.0-18.0 [facility] Comment on above: Performed By: #### L [id number] ####Cuff Cutter: LESLEE HERNANDEZ ([id number])[facility] ([facility])[address] IMMATURE GRANS % 0.2 % Normal 0.0-2.0 [facility] Comment on above: Performed By: #### L [id number] ####Cuff Cutter: LESLEE HERNANDEZ ([id number])[facility] ([facility])[address] IMMATURE GRANS ABSOLUTE 0.0 10*3/uL Normal <0.1 [facility] Comment on above: Performed By: #### L [id number] ####Cuff Cutter: LESLEE HERNANDEZ ([id number])[facility] [place] (SBHLAB)[address] Lymphocytes (Bld) [#/Vol] 1.7 10*3/uL Normal 1.0-4.3 [facility] Comment on above: Performed By: #### L [id number] ####Cuff Cutter: LESLEE TURKTYRONE ([phone])[facility] [place] (SBHLAB)[address] Lymphocytes/100 WBC (Bld) 20.0 % Normal 15.0-45.0 [facility] Comment on above: Performed By: #### L [id number] ####Cuff Cutter: LESLEE HERNANDEZ ([id number])[facility] [place] (SBHLAB)[address] MCH (RBC) [Entitic mass] 32.5 pg Normal 26.0-34.0 [facility] Comment on above: Performed By: #### L [id number] ####Cuff Cutter: LESLEE HERNANDEZ ([phone])[facility] [place] (SB[facility])[address] MCHC 31.5 % Normal 30.5-36.0 [facility] Comment on above: Performed By: #### L [id number] ####Cuff Cutter: LESLEE HERNANDEZ ([phone])[facility] [place] (SBHLAB)[address] [place] [address] MCV (RBC) [Entitic vol] 103.2 fL High 77.0-99.0 [facility] Comment on above: Performed By: #### L [id number] ####Cuff Cutter: LESLEE HERNANDEZ ([id number])[facility] [place] (SBHLAB)[address] Monocytes (Bld) [#/Vol] 0.6 10*3/uL Normal 0.0-0.9 [facility] Comment on above: Performed By: #### L [id number] ####Cuff Cutter: LESLEE HERNANDEZ ([id number])[facility] [place] (SBHLAB)[address] Monocytes/100 WBC (Bld) 7.4 % Normal 5.0-13.0 [facility] Comment on above: Performed By: #### L [id number] ####Cuff Cutter: LESLEE HERNANDEZ ([id number])[facility] [place] (SBHLAB)[address] NEUTROPHILS ABSOLUTE 6.2 10*3/uL Normal 1.8-7.5 [facility] Comment on above: Performed By: #### L [id number] ####Cuff Cutter: LESLEE HERNANDEZ ([id number])[facility] [place] (SB[facility])[address] Neutrophils/100 WBC (Bld) 72.1 % Normal 38.0-82.0 [facility] Comment on above: Performed By: #### L [id number] ####Cuff Cutter: LESLEE HERNANDEZ ([id number])[facility] [place] (SBHLAB)[address] NRBC 0.0 /100 WBCs Normal 0.0-2.0 [facility] Comment on above: Performed By: #### L [id number] ####Cuff Cutter: LESLEE HERNANDEZ ([phone])[facility] [place] ([facility]HLAB)[address] Platelet mean volume (Bld) [Entitic vol] 10.7 fL Normal 9.0-12.7 [facility] Comment on above: Performed By: #### L [id number] ####Cuff Cutter: LESLEE HERNANDEZ ([id number])[facility] [place] (SB[facility])[address] Platelets (Bld) [#/Vol] 217 10*3/uL Normal 140-440 [facility] Comment on above: Performed By: #### L [id number] ####Cuff Cutter: LESLEE HERNANDEZ ([id number])[facility] [place] (SBHLAB)[address] [place] [address] [place] RBC (Bld) [#/Vol] 5.05 10*6/uL Normal 4.40-5.90 [facility] Comment on above: Performed By: #### L [id number] ####Cuff Cutter: LESLEE HERNANDEZ ([phone])[facility] [place] (SBHLAB)[address] WBC (Bld) [#/Vol] 8.7 10*3/uL Normal 3.6-10.7 [facility] Comment on above: Performed By: #### L [id number] ####Cuff Cutter: LESLEE HERNANDEZ ([id number])[facility] (SBHLAB)[address] COMPREHENSIVE METABOLIC PANE Ming 06-13-2024 Albumin [Mass/Vol] 3.1 g/dL Low 3.5-5.0 [facility] Comment on above: Performed By: #### L AB129, [id number], LAB17, TYM130, LAB99 ####Cuff Cutter: LESLEE HERNANDEZ ([id number])[facility] (SBHLAB)[address] ALP [Catalytic activity/Vol] 129 U/L Normal 40-150 [facility] Comment on above: Performed By: #### L AB129, [id number], LAB17, [id number], LAB99 ####Cuff Cutter: LESLEE HERNANDEZ ([id number])[facility] (SBHLAB)[address] ALT [Catalytic activity/Vol] 121 U/L High <40 [facility] Comment on above: Performed By: #### L AB129, [id number], LAB17, DVQ436, LAB99 ####Cuff Cutter: LESLEE HERNANDEZ ([id number])[facility] (SBHLAB)[address] Anion gap [Moles/Vol] 12 mmol/L Normal 3-13 [facility] Comment on above: Performed By: #### L AB129, [id number], LAB17, GBY183, LAB99 ####Cuff Cutter: LESLEE TURKTYRONE ([id number])[facility] (SBHLAB)[address] [place] [address] [place] AST [Catalytic activity/Vol] 47 U/L High <34 [facility] Comment on above: Performed By: #### L AB129, [id number], LAB17, YEK741, LAB99 ####Cuff Cutter: LESLEE MCNEILLRAMON ([id number])[facility] (SBHLAB)[address] Bilirubin [Mass/Vol] 1.5 mg/dL High <1.2 [facility] Comment on above: Performed By: #### L AB129, [id number], LAB17, EEY909, LAB99 ####Cuff Cutter: LESLEE MCNEILLRAMON ([phone])[facility] (SBHLAB)[address] Calcium [Mass/Vol] 8.7 mg/dL Normal 8.4-10.2 [facility] Comment on above: Performed By: #### L AB129, [id number], LAB17, HCZ558, LAB99 ####Cuff Cutter: LESLEE HERNANDEZ ([id number])[facility] (SBHLAB)[address] [place] [address] [place] Chloride [Moles/Vol] 113 mmol/L High 98-107 [facility] Comment on above: Performed By: #### L AB129, [id number], LAB17, QUV611, LAB99 ####Cuff Cutter: LESLEE HERNANDEZ ([id number])[facility] (SBHLAB)[address] [place] [address] [place] CO2 [Moles/Vol] 17 mmol/L Low 22-29 [facility] Comment on above: Performed By: #### L AB129, [id number], LAB17, SSG639, LAB99 ####Cuff Cutter: LESLEE HERNANDEZ ([id number])[facility] (SBHLAB)[address] Creatinine [Mass/Vol] 2.32 mg/dL High 0.72-1.25 [facility] Comment on above: Performed By: #### L AB129, [id number], LAB17, HGY981, LAB99 ####Cuff Cutter: LESLEE HERNANDEZ ([id number])[facility] (SBHLAB)[address] [place] [address] [place] GLOMERULAR FILTRATION RATE ML/MIN/1.73 SQ M.PREDICTED 34.2 mL/min/1.73m*2 Low >60.0 [facility] Comment on above: Result Comment: Calc ulation based on the Chronic Kidney Disease Epidemiology Collaboration (CKD-EPI) equation refit without adjustment for race Performed By: #### L AB129, [id number], LAB17, PNR676, LAB99 ####Cuff Cutter: LESLEE HERNANDEZ ([id number])[facility] [place] [address] Glucose [Mass/Vol] 115 mg/dL High 74-100 [facility] Comment on above: Performed By: #### L AB129, [id number], LAB17, [id number], LAB99 ####Cuff Cutter: LESLEE HERNANDEZ ([id number])[facility] [place] [address] Potassium [Moles/Vol] 5.7 mmol/L High 3.5-5.1 [facility] Comment on above: Result Comment: [facility] potassium values may be up to 0.5 mmol/L lower than serum values. Performed By: #### L AB129, [id number], LAB17, AML378, LAB99 ####Cuff Cutter: LESLEE HERNANDEZ ([id number])[facility] Protein [Mass/Vol] 6.0 g/dL Low 6.4-8.3 [facility] Comment on above: Performed By: #### L AB129, [id number], LAB17, LTT839, LAB99 ####Cuff Cutter: LESLEE HERNANDEZ ([id number])[facility] (SBHLAB)[address] Sodium [Moles/Vol] 142 mmol/L Normal 136-145 [facility] Comment on above: Performed By: #### L AB129, [id number], LAB17, FBS137, LAB99 ####Cuff Cutter: LESLEEFIDELIA HERNANDEZ ([id number])[facility] (SBHLAB)[address] Urea nitrogen [Mass/Vol] 36 mg/dL High 8-21 [facility] Comment on above: Performed By: #### L AB129, [id number], LAB17, DPG876, LAB99 ####Cuff Cutter: LESLEE HERNANDEZ ([id number])[facility] (SBHLAB)[address] Comprehensive metabolic 1998 panelon 06-13-2024 Albumin [Mass/Vol] 3.1 g/dL Low 3.5 - 5.0 g/dL [facility] ALP [Catalytic activity/Vol] 129 U/L 40 - 150 U/L [facility] ALT [Catalytic activity/Vol] 121 U/L High NINF - 40 U/L [facility] Anion gap [Moles/Vol] 12 mmol/L 3 - 13 mmol/L [facility] AST [Catalytic activity/Vol] 47 U/L High NINF - 34 U/L [facility] Bilirubin [Mass/Vol] 1.5 mg/dL High NINF - 1.2 mg/dL [facility] Calcium [Mass/Vol] 8.7 mg/dL 8.4 - 10. 2 mg/dL [facility] Chloride [Moles/Vol] 113 mmol/L High 98 - 10 7 mmol/L [facility] CO2 [Moles/Vol] 17 mmol/L Low 22 - 29 mmol/L [facility] Creatinine [Mass/Vol] 2.32 mg/dL High 0.72 - 1.25 mg/dL [facility] GFR/1.73 sq M.predicted (S/P/Bld) [Vol rate/Area] 34.2 mL/min Low - PINF [facility] Comment on above: Calculation based on the Chronic Kidney Disease Epidemiology Collaboration (CKD-EPI) equation refit without adjustment for race Glucose [Mass/Vol] 115 mg/dL High 74 - 100 mg/dL [facility] Interpretation and review of laboratory results Abnormal [facility] Potassium [Moles/Vol] 5.7 mmol/L High 3.5 - 5.1 mmol/L [facility] Comment on above: Plasma potassium heidi ues may be up to 0.5 mmol/L lower than serum values. Protein [Mass/Vol] 6 g/dL Low 6.4 - 8.3 g/dL [facility] Sodium [Moles/Vol] 142 mmol/L 136 - 145 mmol/L [facility] Urea nitrogen [Mass/Vol] 36 mg/dL High 8 - 21 mg/dL [facility] ED Nursing Noteon 06-13-2024 ED Nursing Note Pt presents for abdominal pain starting yesterday. States he vomited earlier today. Denies diarrhea. Also having loss of appetite. Denies urinary symptoms. Also having swelling in BLE x2 weeks. Hx CHF. +fatigue Normal [facility] ED Provider Noteon ED Provider Note Normal [facility] HIGH SENSITIVITY TROPONIN, S ERIAL BASELINEon 06-13-2024 TROPONIN HIGH SENSITIVITY BASELINE 50 ng/L High <=35 [facility] Comment on above: Performed By: #### L AB129, [id number], LAB17, NHL417, LAB99 ####Cuff Cutter: LESLEE HERNANDEZ ([id number])[facility] ([facility])[address] [place] [address] HIGH SENSITIVITY TROPONIN, S ERIAL, SECOND TESTon 06-13-2024 TROPONIN HS DELTA, BASELINE TO SECOND 3 ng/L Normal <=2 [facility] Comment on above: Result Comment: This specimen was collected more than 20 minutes away from the 2 hour target. Use of this delta with the 2 hour troponin algorithm is not recommended, individualized clinical assessment is needed.A troponin delta greater than or equal to 15 ng/L is significant for acute cardiac injury.Values less than 15 but greater than 2 are an intermediate change requiring a 3rd serial troponin to be drawn.Values less than or equal to 2 indicate acute cardiac injury is not likely, see external algorithms for further clinical guidance. Performed By: #### L AB103, [id number] ####Cuff Cutter: LESLEE HERNANDEZ ([id number])[facility] TROPONIN HS, SERIAL REFLEX, TEST TWO 53 ng/L High <=35 [facility] Comment on above: Performed By: #### L AB103, [id number] ####Cuff Cutter: LESLEE HERNANDEZ ([id number])[facility] HIGH SENSITIVITY TROPONIN, S ERIAL, THIRD TESTon 06-13-2024 TROPONIN HS DELTA, SECOND TO THIRD -4 ng/L Normal <=2 [facility] Comment on above: Result Comment: This specimen was collected more than 20 minutes away from the 2 hour target. Use of this delta with the 2 hour troponin algorithm is not recommended, individualized clinical assessment is needed.A troponin delta greater than or equal to 15 ng/L is suggestive of acute cardiac injury. Values less than 15, see clinical guidance for ED and Inpatient algorithms. Performed By: #### L AB15, MIN659, [id number] ####Cuff Cutter: LESLEE HERNANDEZ ([id number])[facility] ([facility])[address] TROPONIN HS, SERIAL REFLEX, TEST THREE 49 ng/L High <=35 [facility] Comment on above: Performed By: #### L AB15, [id number], [id number] ####Cuff Cutter: LESLEE HERNANDEZ ([id number])[facility] LIPASEon 06-13-2024 Lipase [Catalytic activity/Vol] 21 U/L Normal <55 [facility] Comment on above: Performed By: #### L AB129, [id number], LAB17, [id number], LAB99 ####Cuff Cutter: LESLEE HERNANDEZ ([id number])[facility])[address] Laboratory - Chemistry and C hemistry - challengeon 06-13-2024 Magnesium [Mass/Vol] 2 mg/dL 1.6 - 2 .6 mg/dL [facility] Magnesium [Mass/Vol] 2.6 mg/dL 1.6 - 2 .6 mg/dL [facility] Comment on above: TC Potential interference from hemolysis TSH Qn 2.79 m[IU]/L [facility] Lipase [Catalytic activity/Vol] 21 U/L NINF - 55 U/L [facility] Lipase [Catalytic activity/V ol]on 06-13-2024 Interpretation and review of laboratory results Normal [facility] MAGNESIUMon 06-13-2024 Magnesium [Mass/Vol] 2.0 mg/dL Normal 1.6-2.6 [facility] Comment on above: Result Comment: ALEJANDRO R COMMENTS:Higher values can be expected in females during menses. Performed By: #### L AB15, [id number], [id number] ####Cuff Cutter: LESLEE HERNANDEZ ([id number])[facility] ([facility])[address] [place] [address] Magnesium [Mass/Vol] 2.6 mg/dL Normal 1.6-2.6 [facility] Comment on above: Result Comment: TCPo tential interference from hemolysisORDER COMMENTS:Higher values can be expected in females during menses. Performed By: #### L AB103, [id number] ####Cuff Cutter: LESLEE HERNANDEZ ([id number])[facility] ([facility])[address] [place] [address] Magnesium [Mass/Vol]on 06-13 Interpretation and review of laboratory results Normal [facility] Higher values can be expected in females during menses. [facility] Interpretation and review of laboratory results Normal [facility] Higher values can be expected in females during menses. [facility] NT PRO BNPon 06-13-2024 Natriuretic peptide B (Bld) [Mass/Vol] 04333 pg/mL High <125 [facility] Comment on above: Performed By: #### L AB129, [id number], LAB17, TIV666, LAB99 ####Cuff Cutter: LESLEE [id number])[facility] [place] (SB[facility]AB)[address] [place], [place] [id number] [facility] Natriuretic peptide B [Mass/ Vol]on 06-13-2024 Interpretation and review of laboratory results Abnormal [facility] Natriuretic peptide B (Bld) [Mass/Vol] 90910 pg/mL High NINF - 125 pg/mL [facility] No Panel Informationon 06-13 Interpretation and review of laboratory results Abnormal [facility] Troponin HS Delta, Second to Third -4 ng/L NINF - 2 ng/L [facility] Comment on above: This specimen was co llected more than 20 minutes away from the 2 hour target. Use of this delta with the 2 hour troponin algorithm is not recommended, individualized clinical assessment is needed. A troponin delta greater than or equal to 15 ng/L is suggestive of acute cardiac injury. Values less than 15, see clinical guidance for ED and Inpatient algorithms. Troponin HS, Serial Third 49 ng/L High NINF - 35 ng/L [facility] Interpretation and review of laboratory results Abnormal [facility] Troponin HS Delta, Baseline to Second 3 ng/L NINF - 2 ng/L [facility] Comment on above: This specimen was co llected more than 20 minutes away from the 2 hour target. Use of this delta with the 2 hour troponin algorithm is not recommended, individualized clinical assessment is needed. A troponin delta greater than or equal to 15 ng/L is significant for acute cardiac injury. Values less than 15 but greater than 2 are an intermediate change requiring a 3rd serial troponin to be drawn. Values less than or equal to 2 indicate acute cardiac injury is not likely, see external algorithms for further clinical guidance. Troponin HS, Serial Second 53 ng/L High NINF - 35 ng/L [facility] Interpretation and review of laboratory results Abnormal [facility] Troponin HS, Serial Baseline 50 ng/L High NINF - 35 ng/L [facility] THYROID STIMULATING HORMONEo n 06-13-2024 THYROID STIMULATING HORMONE 2.79 uIU/mL Normal 0.35-4.94 [facility] Comment on above: Performed By: #### L AB129, [id number], LAB17, FPV287, LAB99 ####Cuff Cutter: LESLEE HERNANDEZ ([id number])[facility] (SBHLAB)[address] TSH Qnon 06-13-2024 Interpretation and review of laboratory results Normal [facility] XR Chest Single viewon 06-13 Cardiomegaly with pulmonary vascular congestion. No focal consolidation identified. Report Dictated on Electronically Signed By: Giovani Santacruz MD Electronically Signed Date/Time: 06/13/2024 2:56 PM EST [facility] Patient Name: CARLO MEDINA : 1980 Exam Date/Time: 06/13/2024 14:37 Procedure: XR CHEST 1 VIEW Ordering Provider: REYES MICHAEL Reason For Exam: SOB, bibasilar rales, CHF exac? CHEST X-RAY CLINICAL INDICATION: SOB, bibasilar rales, CHF exac? TECHNIQUE: AP COMPARISON: 05/28/2024 FINDINGS: Quality: Unremarkable. Lines: None Cardiomediastinal Silhouette: The cardiac silhouette is enlarged. The mediastinum is unremarkable. Lungs: Perihilar vascular congestion is noted without evidence of interstitial opacities. No focal consolidation. No evidence of pleural effusion or pneumothorax. Soft tissue: The soft tissue structures appear unremarkable. Bones: Degenerative change of the thoracic spine is noted. [facility] Giovani Santacruz MD - 06/13/2024 Patient Name: CARLO MEDINA : 1980 Exam Date/Time: 06/13/2024 14:37 Procedure: XR CHEST 1 VIEW Ordering Provider: REYES MICHAEL Reason For Exam: SOB, bibasilar rales, CHF exac? CHEST X-RAY CLINICAL INDICATION: SOB, bibasilar rales, CHF exac? TECHNIQUE: AP COMPARISON: 05/28/2024 FINDINGS: Quality: Unremarkable. Lines: None Cardiomediastinal Silhouette: The cardiac silhouette is enlarged. The mediastinum is unremarkable. Lungs: Perihilar vascular congestion is noted without evidence of interstitial opacities. No focal consolidation. No evidence of pleural effusion or pneumothorax. Soft tissue: The soft tissue structures appear unremarkable. Bones: Degenerative change of the thoracic spine is noted. IMPRESSION: Cardiomegaly with pulmonary vascular congestion. No focal consolidation identified. Report Dictated on Electronically Signed By: Giovani Santacruz MD Electronically Signed Date/Time: 06/13/2024 2:56 PM EST [facility] Radiology Study observation (narrative) [facility] XR Chest Single viewOrdered By: Giovani Santacruz on 06-13-2024 [facility] Work Phone: 36on 06-10-2024 36 Normal [facility] 36 Pt called in stating he's been having stomach pains on and off yesterday and wants to know what he should do. He also states he is still having swelling in his feet and ankles. Normal [facility] 29on 06-08-2024 29 Addended by: RADHA HERNANDEZ on: 06/08/2024 12:19 PM Modules accepted: Orders Normal [facility] BASIC METABOLIC PANELon 12- Anion gap [Moles/Vol] 7 mmol/L Normal 3-13 [facility] Comment on above: Performed By: #### L AB15, LAB20 ####Cuff Cutter: NICOLE BOWERS ([id number])[facility] [employer] (SWRLAB)[address] [place] [address] [place] Calcium [Mass/Vol] 9.2 mg/dL Normal 8.4-10.2 [facility] Comment on above: Performed By: #### L AB15, LAB20 ####Cuff Cutter: NICOLE BOWERS ([phone])[facility] [employer] (SWRL[facility])[address] [place] [address] [place] Chloride [Moles/Vol] 114 mmol/L High 98-107 [facility] Comment on above: Performed By: #### L AB15, LAB20 ####Cuff Cutter: NICOLE BOWERS ([id number])[facility]ITALKAMALJIT RITTMAN (SWRLAB)[address] [place] [address] [place] CO2 [Moles/Vol] 23 mmol/L Normal 22-29 [facility] Comment on above: Performed By: #### L AB15, LAB20 ####Cuff Cutter: NICOLE BOWERS ([phone])[facility] [employer]H [employer] (SWRLAB)[address] Creatinine [Mass/Vol] 2.03 mg/dL High 0.72-1.25 [facility] Comment on above: Performed By: #### L AB15, LAB20 ####Cuff Cutter: NICOLE BOWERS ([phone])[facility] [employer] (SWRL[facility])[address] [place] [address] [place] GLOMERULAR FILTRATION RATE ML/MIN/1.73 SQ M.PREDICTED 40.2 mL/min/1.73m*2 Low >60.0 [facility] Comment on above: Result Comment: Calc ulation based on the Chronic Kidney Disease Epidemiology Collaboration (CKD-EPI) equation refit without adjustment for race Performed By: #### L AB15, LAB20 ####Cuff Cutter: NICOLE BOWERS ([phone])[facility] [employer] (SWRL[facility])[address] [place] [address] [place] Glucose [Mass/Vol] 123 mg/dL High 74-100 [facility] Comment on above: Performed By: #### L AB15, LAB20 ####Cuff Cutter: NICOLE BOWERS ([phone])[facility] [employer] (SWRL[facility])[address] [place] [address] [place] Potassium [Moles/Vol] 5.5 mmol/L High 3.5-5.1 [facility] Comment on above: Result Comment: [facility] potassium values may be up to 0.5 mmol/L lower than serum values. Performed By: #### L AB15, LAB20 ####Cuff Cutter: NICOLE BOWERS ([phone])[facility] [employer] (SWRL[facility])[address] [place] [address] Sodium [Moles/Vol] 144 mmol/L Normal 136-145 [facility] Comment on above: Performed By: #### L AB15, LAB20 ####Cuff Cutter: NICOLE BOWERS ([id number])[facility] [employer] (SWRLAB)[address] Urea nitrogen [Mass/Vol] 35 mg/dL High 8-21 [facility] Comment on above: Performed By: #### L AB15, LAB20 ####Cuff Cutter: NICOLE BOWERS ([id number])[facility] [employer] (SWRLAB)[address] Basic metabolic 1998 panelon 06-08-2024 Anion gap [Moles/Vol] 7 mmol/L 3 - 13 mmol/L [facility] Calcium [Mass/Vol] 9.2 mg/dL 8.4 - 10. 2 mg/dL [facility] Chloride [Moles/Vol] 114 mmol/L High 98 - 10 7 mmol/L [facility] CO2 [Moles/Vol] 23 mmol/L 22 - 29 mmol/L [facility] Creatinine [Mass/Vol] 2.03 mg/dL High 0.72 - 1.25 mg/dL [facility] GFR/1.73 sq M.predicted (S/P/Bld) [Vol rate/Area] 40.2 mL/min Low - PINF [facility] Comment on above: Calculation based on the Chronic Kidney Disease Epidemiology Collaboration (CKD-EPI) equation refit without adjustment for race Glucose [Mass/Vol] 123 mg/dL High 74 - 100 mg/dL [facility] Potassium [Moles/Vol] 5.5 mmol/L High 3.5 - 5.1 mmol/L [facility] Comment on above: Plasma potassium heidi ues may be up to 0.5 mmol/L lower than serum values. Sodium [Moles/Vol] 144 mmol/L 136 - 145 mmol/L [facility] Urea nitrogen [Mass/Vol] 35 mg/dL High 8 - 21 mg/dL [facility] HEPATIC FUNCTION PANELon Albumin [Mass/Vol] 3.4 g/dL Low 3.5-5.0 [facility] Comment on above: Performed By: #### L AB15, LAB20 ####Cuff Cutter: NICOLE BOWERS ([id number])[facility] YEH RITTMAN (SWRLAB)[address] [place] [address] [place] ALP [Catalytic activity/Vol] 128 U/L Normal 40-150 [facility] Comment on above: Performed By: #### L AB15, LAB20 ####Cuff Cutter: NICOLE BOWERS ([id number])[facility]ILLKeyon RODRIGESKAMALJIT RITTMAN (SWRLAB)[address] [place] [address] [place] ALT [Catalytic activity/Vol] 146 U/L High <40 [facility] Comment on above: Performed By: #### L AB15, LAB20 ####Cuff Cutter: NICOLE BOWERS ([id number])[facility] YEH RITTMAN (SWRLAB)[address] [place] [address] [place] AST [Catalytic activity/Vol] 51 U/L High <34 [facility] Comment on above: Performed By: #### L AB15, LAB20 ####Cuff Cutter: NICOLE BOWERS ([id number])[facility] YEH RITTMAN (SWRLAB)[address] [place] [address] [place] Bilirubin [Mass/Vol] 1.7 mg/dL High <1.2 [facility] Comment on above: Performed By: #### L AB15, LAB20 ####Cuff Cutter: NICOLE BOWERS ([phone])[facility] YEH RITTMAN (SWRLAB)[address] [place] [address] [place] Bilirubin.indirect [Mass/Vol] 0.7 mg/dL High <0.5 [facility] Comment on above: Performed By: #### L AB15, LAB20 ####Cuff Cutter: NICOLE BOWERS ([phone])[facility] YEH RITTMAN (SWRLAB)[address] [place] [address] [place] Protein [Mass/Vol] 6.2 g/dL Low 6.4-8.3 [facility] Comment on above: Result Comment: Seru m protein values are higher than plasma values. Samples from recumbent persons are lower by up to 0.5 g/dL as compared to ambulatory persons. After 60 years values are lower by up to 0.2 g/dL. Performed By: #### L AB15, LAB20 ####Cuff Cutter: NICOLE BOWERS ([id number])[facility] (SWRLAB)[address] [place] [address] Hepatic function 2000 panelo n 06-08-2024 Albumin [Mass/Vol] 3.4 g/dL Low 3.5 - 5.0 g/dL [facility] ALP [Catalytic activity/Vol] 128 U/L 40 - 150 U/L [facility] ALT [Catalytic activity/Vol] 146 U/L High NINF - 40 U/L [facility] AST [Catalytic activity/Vol] 51 U/L High [facility] - 34 U/L [facility] Bilirubin [Mass/Vol] 1.7 mg/dL High [facility] - 1.2 mg/dL [facility] Bilirubin.conjugated [Mass/Vol] 0.7 mg/dL High NINF - 0.5 mg/dL [facility] Protein [Mass/Vol] 6.2 g/dL Low 6.4 - 8.3 g/dL [facility] Comment on above: Serum protein values are higher than plasma values. Samples from recumbent persons are lower by up to 0.5 g/dL as compared to ambulatory persons. After 60 years values are lower by up to 0.2 g/dL. No Panel Informationon 06-08 Interpretation and review of laboratory results Abnormal [facility] Progress Noteon 06-08-2024 Progress Note Normal [facility] 36on 06-07-2024 36 Patient unable to pa y the 50% at time of appt due to declined hcap and no health insurance. Normal [facility] 36on 06-04-2024 36 Spoke with the patient and he does not have health insurance nor does he qualify for medicaid or hospital judie per his girlfriend. He has a follow-up appt with cardio on 2023. I did give them the phone number for Teri Santos. Normal [facility] 36 Please contact patient to schedule. Normal [facility] 36on 06-03-2024 36 Normal [facility] 36 S: Patient admitted to: [facility] 05/28/24 B: Discharged on : 06/01/24 A: Hospital follow up call initiated to discuss any medication changes, follow up appointments and discharge instructions: Metabolic acidosis R: No contact x 1 at : [phone] [facility] ED Nursing Noteon 06-03-2024 ED Nursing Note This RN asked if pt wanted to come back into triage to have lucrecia wrap placed. Significant other said, I'll put it on. Pt and significant other left. Normal [facility] ED Nursing Note Pt presents to ED fo r c/o Bilateral leg swelling since yesterday and was recently diagnosed and admitted for CHF and stage 3 kidney disease Normal [facility] ED Provider Noteon ED Provider Note Normal [facility] 36on 06-02-2024 36 Normal [facility] [id number] 06-01-2024 [id number] Labs drawn and given to More Evans at pts bedside [facility] CBC W Auto Differential pane l (Bld)on 06-01-2024 Basophils (Bld) [#/Vol] 0 10*3/uL 0.0 - 0.2 10*3/uL [facility] Basophils/100 WBC (Bld) 0.1 % 0.0 - 2.0 % [facility] Eosinophils (Bld) [#/Vol] 0 10*3/uL 0.0 - 0.5 10*3/uL [facility] Eosinophils/100 WBC (Bld) 0.3 % 0.0 - 6.0 % [facility] Erythrocyte distribution width (RBC) [Ratio] 14.1 % 11.5 - 15.0 % [facility] Hematocrit (Bld) [Volume fraction] 46.3 % 40.0 - 52.0 % [facility] Hemoglobin (Bld) [Mass/Vol] 14.8 g/dL 13.0 - 18.0 g/dL [facility] Immature granulocytes (Bld) [#/Vol] 0 10*3/uL NINF - 0.1 10*3/uL [facility] Immature granulocytes/100 WBC (Bld) 0.3 % 0.0 - 2.0 % [facility] Interpretation and review of laboratory results Abnormal [facility] Lymphocytes (Bld) [#/Vol] 1.9 10*3/uL 1.0 - 4.3 10*3/uL [facility] Lymphocytes/100 WBC (Bld) 28.7 % 15.0 - 45.0 % [facility] MCH (RBC) [Entitic mass] 31.9 pg 26.0 - 34.0 pg [facility] MCHC (RBC) [Mass/Vol] 32 % 30.5 - 36.0 % [facility] MCV (RBC) [Entitic vol] 99.8 fL High 77.0 - 99.0 fL [facility] Monocytes (Bld) [#/Vol] 0.5 10*3/uL 0.0 - 0.9 10*3/uL [facility] Monocytes/100 WBC (Bld) 7.2 % 5.0 - 13.0 % [facility] Neutrophils (Bld) [#/Vol] 4.2 10*3/uL 1.8 - 7.5 10*3/uL [facility] Neutrophils/100 WBC (Bld) 63.4 % 38.0 - 82.0 % [facility] Nucleated RBC/100 WBC (Bld) [Ratio] 0 % [facility] Platelet mean volume (Bld) [Entitic vol] 10.5 fL 9.0 - 12.7 fL [facility] Platelets (Bld) [#/Vol] 200 10*3/uL 140 - 440 10*3/uL [facility] RBC (Bld) [#/Vol] 4.64 10*6/uL 4.40 - 5.9 0 10*6/uL [facility] WBC (Bld) [#/Vol] 6.7 10*3/uL 3.6 - 10.7 10*3/uL [facility] CBC WITH AUTO DIFFERENTIALon 06-01-2024 Basophils (Bld) [#/Vol] 0.0 10*3/uL Normal 0.0-0.2 [facility] Comment on above: Performed By: #### L [id number] ####Cuff Cutter: LESLEE HERNANDEZ ([id number])[facility]ENTERALLISON (SBAB)[address] [place] [address] Basophils/100 WBC (Bld) 0.1 % Normal 0.0-2.0 [facility] Comment on above: Performed By: #### L [id number] ####Cuff Cutter: LESLEE HERNANDEZ ([id number])[facility]A BARBREHOBOTH MCKINLEY CHRIST[facility] CARE SERVICESN (SBHLAB)[address] Eosinophils (Bld) [#/Vol] 0.0 10*3/uL Normal 0.0-0.5 [facility] Comment on above: Performed By: #### L [id number] ####Cuff Cutter: LESLEE TURKTYRONE ([id number])[facility]A BARBREHOBOTH MCKINLEY CHRIST[facility] HEALTH CARE SERVICESN (SBAB)[address] Eosinophils/100 WBC (Bld) 0.3 % Normal 0.0-6.0 [facility] Comment on above: Performed By: #### L [id number] ####Cuff Cutter: LESLEE TURKTYRONE ([id number])[facility]A ADAMANT ([facility])[address] Erythrocyte distribution width (RBC) [Ratio] 14.1 % Normal 11.5-15.0 [facility] Comment on above: Performed By: #### L [id number] ####Cuff Cutter: LESLEE HERNANDEZ ([id number])[facility]ANT ([facility])[address] Hematocrit (Bld) [Volume fraction] 46.3 % Normal 40.0-52.0 [facility] Comment on above: Performed By: #### L [id number] ####Cuff Cutter: LESLEE TURKTYRONE ([id number])[facility]A BARBREHOBOTH MCK[facility] CH[facility] SERVICESN ([facility])[address] Hemoglobin (Bld) [Mass/Vol] 14.8 g/dL Normal 13.0-18.0 [facility] Comment on above: Performed By: #### L [id number] ####Cuff Cutter: LESLEE HERNANDEZ ([id number])[facility]A [facility] (SBAB)[address] IMMATURE GRANS % 0.3 % Normal 0.0-2.0 [facility] Comment on above: Performed By: #### L [id number] ####Cuff Cutter: LESLEE HERNANDEZ ([id number])[facility] (SBHLAB)[address] IMMATURE GRANS ABSOLUTE 0.0 10*3/uL Normal <0.1 [facility] Comment on above: Performed By: #### L [id number] ####Cuff Cutter: LESLEE HERNANDEZ ([id number])[facility] (SBAB)[address] Lymphocytes (Bld) [#/Vol] 1.9 10*3/uL Normal 1.0-4.3 [facility] Comment on above: Performed By: #### L [id number] ####Cuff Cutter: LESLEE HERNANDEZ ([id number])[facility] ([facility])[address] [place] [address] Lymphocytes/100 WBC (Bld) 28.7 % Normal 15.0-45.0 [facility] Comment on above: Performed By: #### L [id number] ####Cuff Cutter: LESLEE HERNANDEZ ([id number])[facility] ([facility])[address] [place] [address] MCH (RBC) [Entitic mass] 31.9 pg Normal 26.0-34.0 [facility] Comment on above: Performed By: #### L [id number] ####Cuff Cutter: LESLEE HERNANDEZ ([id number])[facility] (SBHLAB)[address] [place] [address] MCHC 32.0 % Normal 30.5-36.0 [facility] Comment on above: Performed By: #### L [id number] ####Cuff Cutter: LESLEE HERNANDEZ ([id number])[facility] (SBHLAB)[address] [place] [address] MCV (RBC) [Entitic vol] 99.8 fL High 77.0-99.0 [facility] Comment on above: Performed By: #### L [id number] ####Cuff Cutter: LESLEE HERNANDEZ ([id number])[facility]A [place] (SBHLAB)[address] Monocytes (Bld) [#/Vol] 0.5 10*3/uL Normal 0.0-0.9 [facility] Comment on above: Performed By: #### L [id number] ####Cuff Cutter: LESLEE HERNANDEZ ([id number])[facility]A [place] (SBHLAB)[address] Monocytes/100 WBC (Bld) 7.2 % Normal 5.0-13.0 [facility] Comment on above: Performed By: #### L [id number] ####Cuff Cutter: LESLEE HERNANDEZ ([id number])[facility]A [facility]ERTON (SBHLAB)[address] NEUTROPHILS ABSOLUTE 4.2 10*3/uL Normal 1.8-7.5 [facility] Comment on above: Performed By: #### L [id number] ####Cuff Cutter: LESLEE HERNANDEZ ([id number])[facility]A [place] (SBHLAB)[address] Neutrophils/100 WBC (Bld) 63.4 % Normal 38.0-82.0 [facility] Comment on above: Performed By: #### L [id number] ####Cuff Cutter: LESLEE HERNANDEZ ([id number])[facility]A [place] (SBHLAB)[address] NRBC 0.0 /100 WBCs Normal 0.0-2.0 [facility] Comment on above: Performed By: #### L [id number] ####Cuff Cutter: LESLEE HERNANDEZ ([id number])[facility]A [place] (SBHLAB)[address] Platelet mean volume (Bld) [Entitic vol] 10.5 fL Normal 9.0-12.7 [facility] Comment on above: Performed By: #### L [id number] ####Cuff Cutter: LESLEE HERNANDEZ ([id number])[facility]A LELOERTON (SBHLAB)[address] Platelets (Bld) [#/Vol] 200 10*3/uL Normal 140-440 [facility] Comment on above: Performed By: #### L [id number] ####Cuff Cutter: LESLEE HERNANDEZ ([id number])[facility] [place] (SBHLAB)[address] RBC (Bld) [#/Vol] 4.64 10*6/uL Normal 4.40-5.90 [facility] Comment on above: Performed By: #### L [id number] ####Cuff Cutter: LESLEE HERNANDEZ ([id number])[facility]A BARBREHOBOTH [facility] C[facility] SERVICESN (SBHLAB)[address] WBC (Bld) [#/Vol] 6.7 10*3/uL Normal 3.6-10.7 [facility] Comment on above: Performed By: #### L [id number] ####Cuff Cutter: LESLEE HERNANDEZ ([id number])[facility]A [facility] (SBHLAB)[address] COMPREHENSIVE METABOLIC PANE Ming 06-01-2024 Albumin [Mass/Vol] 3.1 g/dL Low 3.5-5.0 [facility] Comment on above: Performed By: #### L AB17 ####Cuff Cutter: LESLEE HERNANDEZ ([id number])[facility] [place] (SBHLAB)[address] ALP [Catalytic activity/Vol] 103 U/L Normal 40-150 [facility] Comment on above: Performed By: #### L AB17 ####Cuff Cutter: LESLEE HERNANDEZ ([id number])[facility] [place] (SBHLAB)[address] ALT [Catalytic activity/Vol] 170 U/L High <40 [facility] Comment on above: Performed By: #### L AB17 ####Cuff Cutter: LESLEE HERNANDEZ ([id number])[facility] [place] (SBHLAB)[address] Anion gap [Moles/Vol] 7 mmol/L Normal 3-13 [facility] Comment on above: Performed By: #### L AB17 ####Cuff Cutter: LESLEE HERNANDEZ ([id number])[facility]A BARBREHOB[facility] SERVICESN (SBHLAB)[address] AST [Catalytic activity/Vol] 47 U/L High <34 [facility] Comment on above: Performed By: #### L AB17 ####Cuff Cutter: LESLEE HERNANDEZ ([id number])[facility] [place] (SBHLAB)[address] Bilirubin [Mass/Vol] 1.1 mg/dL Normal <1.2 [facility] Comment on above: Performed By: #### L AB17 ####Cuff Cutter: LESLEE HERNANDEZ ([id number])[facility]A [facility] (SBHLAB)[address] Calcium [Mass/Vol] 8.7 mg/dL Normal 8.4-10.2 [facility] Comment on above: Performed By: #### L AB17 ####Cuff Cutter: LESLEE HERNANDEZ ([id number])[facility]A [place] (SBHLAB)[address] [place] [address] [place] Chloride [Moles/Vol] 109 mmol/L High 98-107 [facility] Comment on above: Performed By: #### L AB17 ####Cuff Cutter: LESLEE HERNANDEZ ([id number])[facility] [place] (SBHLAB)[address] CO2 [Moles/Vol] 22 mmol/L Normal 22-29 [facility] Comment on above: Performed By: #### L AB17 ####Cuff Cutter: LESLEE HERNANDEZ ([id number])[facility] [place] (SBHLAB)[address] Creatinine [Mass/Vol] 2.05 mg/dL High 0.72-1.25 [facility] Comment on above: Performed By: #### L AB17 ####Cuff Cutter: LESLEE HERNANDEZ ([id number])[facility] [place] (SBHLAB)[address] [place] [address] [place] GLOMERULAR FILTRATION RATE ML/MIN/1.73 SQ M.PREDICTED 39.7 mL/min/1.73m*2 Low >60.0 [facility] Comment on above: Result Comment: Calc ulation based on the Chronic Kidney Disease Epidemiology Collaboration (CKD-EPI) equation refit without adjustment for race Performed By: #### L AB17 ####Cuff Cutter: LELSEE HERNANDEZ ([id number])[facility] [place] (SBHLAB)[address] Glucose [Mass/Vol] 113 mg/dL High 74-100 [facility] Comment on above: Performed By: #### L AB17 ####Cuff Cutter: LESLEE HERNANDEZ ([id number])[facility]A BARBREHOB[facility] MCK[facility] SERVICESN (SBHLAB)[address] Potassium [Moles/Vol] 4.7 mmol/L Normal 3.5-5.1 [facility] Comment on above: Result Comment: [facility] potassium values may be up to 0.5 mmol/L lower than serum values. Performed By: #### L AB17 ####Cuff Cutter: LESLEE HERNANDEZ ([id number])[facility] [place] (SBHLAB)[address] [place] [address] [place] Protein [Mass/Vol] 5.5 g/dL Low 6.4-8.3 [facility] Comment on above: Performed By: #### L AB17 ####Cuff Cutter: LESLEE HERNANDEZ ([id number])[facility] [place] (SBHLAB)[address] [place] [address] [place] Sodium [Moles/Vol] 138 mmol/L Normal 136-145 [facility] Comment on above: Performed By: #### L AB17 ####Cuff Cutter: LESLEE MCNEILLNinoskaTYRONE ([id number])[facility] (SBHLAB)[address] Urea nitrogen [Mass/Vol] 37 mg/dL High 8-21 [facility] Comment on above: Performed By: #### L AB17 ####Cuff Cutter: LESLEE HERNANDEZ ([id number])[facility] (SBHLAB)[address] Comprehensive metabolic 1998 panelon 06-01-2024 Albumin [Mass/Vol] 3.1 g/dL Low 3.5 - 5.0 g/dL [facility] ALP [Catalytic activity/Vol] 103 U/L 40 - 150 U/L [facility] ALT [Catalytic activity/Vol] 170 U/L High NINF - 40 U/L [facility] Anion gap [Moles/Vol] 7 mmol/L 3 - 13 mmol/L [facility] AST [Catalytic activity/Vol] 47 U/L High NINF - 34 U/L [facility] Bilirubin [Mass/Vol] 1.1 mg/dL [facility]F - 1.2 mg/dL [facility] Calcium [Mass/Vol] 8.7 mg/dL 8.4 - 10. 2 mg/dL [facility] Chloride [Moles/Vol] 109 mmol/L High 98 - 10 7 mmol/L [facility] CO2 [Moles/Vol] 22 mmol/L 22 - 29 mmol/L [facility] Creatinine [Mass/Vol] 2.05 mg/dL High 0.72 - 1.25 mg/dL [facility] GFR/1.73 sq M.predicted (S/P/Bld) [Vol rate/Area] 39.7 mL/min Low - PINF [facility] Comment on above: Calculation based on the Chronic Kidney Disease Epidemiology Collaboration (CKD-EPI) equation refit without adjustment for race Glucose [Mass/Vol] 113 mg/dL High 74 - 100 mg/dL [facility] Interpretation and review of laboratory results Abnormal [facility] Potassium [Moles/Vol] 4.7 mmol/L 3.5 - 5.1 mmol/L [facility] Comment on above: Plasma potassium heiid ues may be up to 0.5 mmol/L lower than serum values. Protein [Mass/Vol] 5.5 g/dL Low 6.4 - 8.3 g/dL [facility] Sodium [Moles/Vol] 138 mmol/L 136 - 145 mmol/L [facility] Urea nitrogen [Mass/Vol] 37 mg/dL High 8 - 21 mg/dL [facility] Consulton 06-01-2024 Consult Normal [facility] MR Abdomen WO contraston 1. Limited study wit h significant patient motion. The study was terminated prematurely due to poor patient tolerance of the examination. Repeat imaging could be obtained if warranted. 2. No definite evidence of biliary dilation or choledocholithiasis. 3. Pericholecystic edema, nonspecific but if there is concern for gallbladder pathology, repeat ultrasound or HIDA scan could be obtained. Note however that the gallbladder is not distended. 4. Trace bilateral pleural effusions. Report Dictated on Electronically Signed By: Shane Galarza MD Electronically Signed Date/Time: 06/01/2024 4:18 PM [facility] [employer] [facility] Patient Name: CARLO MEDINA : 1980 Exam Date/Time: 06/01/2024 10:41 Procedure: MR ABDOMEN WO CONTRAST Ordering Provider: CHENEY ALAINA Reason For Exam: Rule out CBD obstruction EXAMINATION: MRI abdomen without contrast CLINICAL INDICATION: Elevated liver enzymes, abnormal ultrasound TECHNIQUE: Multiplanar multisequence MR images of the abdomen were obtained. The study was terminated due to poor patient tolerance of the examination. MRCP images were not obtained COMPARISON: Ultrasound from 05/31/2024 FINDINGS: Limited due to patient motion. Liver: Normal size and contours. No definite lesion. Biliary system: Nondistended gallbladder with adjacent edema. No biliary dilation. No definite filling defect to suggest choledocholithiasis the MRCP images were not obtained. Pancreas: Unremarkable Adrenal glands: Unremarkable Spleen: Unremarkable Kidneys: Symmetric in size without suspicious lesion or hydronephrosis. Aorta: Unremarkable Lymphadenopathy: None Other: Trace bilateral pleural effusions. [facility] Shane Galarza MD - 06/01/2024 [facility]: [facility] 1980 [id number] Exam Date/Time: 06/01/2024 10:41 Procedure: MR ABDOMEN WO CONTRAST Ordering Provider: CHENEY ALAINA Reason For Exam: Rule out CBD obstruction EXAMINATION: MRI abdomen without contrast CLINICAL INDICATION: Elevated liver enzymes, abnormal ultrasound TECHNIQUE: Multiplanar multisequence MR images of the abdomen were obtained. The study was terminated due to poor patient tolerance of the examination. MRCP images were not obtained COMPARISON: Ultrasound from 05/31/2024 FINDINGS: Limited due to patient motion. Liver: Normal size and contours. No definite lesion. Biliary system: Nondistended gallbladder with adjacent edema. No biliary dilation. No definite filling defect to suggest choledocholithiasis the MRCP images were not obtained. Pancreas: Unremarkable Adrenal glands: Unremarkable Spleen: Unremarkable Kidneys: Symmetric in size without suspicious lesion or hydronephrosis. Aorta: Unremarkable Lymphadenopathy: None Other: Trace bilateral pleural effusions. IMPRESSION: 1. Limited study with significant patient motion. The study was terminated prematurely due to poor patient tolerance of the examination. Repeat imaging could be obtained if warranted. 2. No definite evidence of biliary dilation or choledocholithiasis. 3. Pericholecystic edema, nonspecific but if there is concern for gallbladder pathology, repeat ultrasound or HIDA scan could be obtained. Note however that the gallbladder is not distended. 4. Trace bilateral pleural effusions. Report Dictated on Electronically Signed By: Shane Galazra MD Electronically Signed Date/Time: 06/01/2024 4:18 PM EST [facility] Radiology Study observation (narrative) [facility] Nursing Noteon 06-01-2024 Nursing Note Normal [facility] Nursing Note Normal [facility] Progress Noteon 06-01-2024 Progress Note Normal [facility] Progress Note Normal [facility] [id number] 05-31-2024 [id number] Normal [facility] Nursing Noteon 05-31-2024 Nursing Note Normal [facility] Progress Noteon 05-31-2024 Progress Note [facility] Progress Note Normal [facility] Progress Note Normal [facility] US ABDOMEN COMPLETEon 2023 US ABDOMEN COMPLETE Normal [facility] US Abdomenon 05-31-2024 1. Gallbladder wall thickening with pericholecystic fluid and ultrasound positive Melendez sign. Gallstone is not visualized within the gallbladder, however the other findings would be concerning for cholecystitis. Further evaluation with HIDA scan is recommended. Enlargement of the common bile duct may be related to distal common duct obstruction. Report Dictated on Electronically Signed By: Joel Hi MD Electronically Signed Date/Time: 05/31/2024 4:20 PM EST [facility] Patient Name: CARLO MEDINA : 1980 Exam Date/Time: 05/31/2024 15:37 Procedure: US ABDOMEN COMPLETE Ordering Provider: BURGER NICHOLE Reason For Exam: INCREASED LIVER ENZYMES ULTRASOUND ABDOMEN COMPLETE EXAM DATE AND TIME: 05/31/2024 3:37 PM EST INDICATION: 44 years Male with elevated liver enzymes COMPARISON: The superior iliac arteries. Question about either a TECHNIQUE: Complete ultrasound of abdomen FINDINGS: Pancreas: The visualized portions of the pancreatic head and body are unremarkable. The remainder of the pancreas is obscured by bowel gas Liver: Normal echogenicity, size and contours. No focal lesion identified. Gallbladder: The gallbladder demonstrates gallbladder wall thickening and pericholecystic fluid. Ultrasound Melendez sign is positive. Per the special procedure technologist, the sonographic Melendez's sign was negative. Bile ducts: There is extrahepatic biliary duct dilatation Common bile duct: 11.4 mm Right kidney: Normal size measuring 9.9 x 5.0 x 4.1 cm. Normal parenchymal echogenicity without solid mass or hydronephrosis. Left kidney: Normal size measuring 9.7 x 5.5 x 5.8 cm. Normal parenchymal echogenicity without solid mass or hydronephrosis. Spleen: Normal size measuring 8.4 x 7.9 x 3.1 cm. Normal echogenicity without a lesion. Aorta and Inferior vena cava: Visualized portions are normal Ascites: None [facility] Joel Hi MD - 05/31/2024 [facility] Name[facility] 1980 [id number] Exam Date/Time: 05/31/2024 15:37 Procedure: US ABDOMEN COMPLETE Ordering Provider: BURGER NICHOLE Reason For Exam: INCREASED LIVER ENZYMES ULTRASOUND ABDOMEN COMPLETE EXAM DATE AND TIME: 05/31/2024 3:37 PM EST INDICATION: 44 years Male with elevated liver enzymes COMPARISON: The superior iliac arteries. Question about either a TECHNIQUE: Complete ultrasound of abdomen FINDINGS: Pancreas: The visualized portions of the pancreatic head and body are unremarkable. The remainder of the pancreas is obscured by bowel gas Liver: Normal echogenicity, size and contours. No focal lesion identified. Gallbladder: The gallbladder demonstrates gallbladder wall thickening and pericholecystic fluid. Ultrasound Melendez sign is positive. Per the special procedure technologist, the sonographic Melendez's sign was negative. Bile ducts: There is extrahepatic biliary duct dilatation Common bile duct: 11.4 mm Right kidney: Normal size measuring 9.9 x 5.0 x 4.1 cm. Normal parenchymal echogenicity without solid mass or hydronephrosis. Left kidney: Normal size measuring 9.7 x 5.5 x 5.8 cm. Normal parenchymal echogenicity without solid mass or hydronephrosis. Spleen: Normal size measuring 8.4 x 7.9 x 3.1 cm. Normal echogenicity without a lesion. Aorta and Inferior vena cava: Visualized portions are normal Ascites: None IMPRESSION: 1. Gallbladder wall thickening with pericholecystic fluid and ultrasound positive Melendez sign. Gallstone is not visualized within the gallbladder, however the other findings would be concerning for cholecystitis. Further evaluation with HIDA scan is recommended. Enlargement of the common bile duct may be related to distal common duct obstruction. Report Dictated on Electronically Signed By: Joel Hi MD Electronically Signed Date/Time: 05/31/2024 4:20 PM EST [employer] [facility] Study observation (narrative) [facility] US AbdomenOrdered By: Layton Hi on 05-31-2024 [employer] Work Phone: 25-hydroxyvitamin D3 [Mass/V ol]on 05-30-2024 Interpretation and review of laboratory results Abnormal [employer] Therapy is based on measurement of Total 25-OHD with the following classification levels: Less than 20 ng/mL: Indicative of Vit D deficiency 20-30 ng/mL: Suggests Vit D insufficiency Optimal: Greater than or equal to 30 ng/mL Test performed by [employer] Competitive Immunoassay, measuring Total Vitamin D, not individual fractions. [facility] 30on 05-30-2024 30 Normal [facility] 36on 05-30-2024 36 Normal [facility] CBC W Auto Differential pane l (Bld)on 05-30-2024 Basophils (Bld) [#/Vol] 0 10*3/uL 0.0 - 0.2 10*3/uL [facility] Basophils/100 WBC (Bld) 0.3 % 0.0 - 2.0 % [facility] Eosinophils (Bld) [#/Vol] 0.1 10*3/uL 0.0 - 0.5 10*3/uL [facility] Eosinophils/100 WBC (Bld) 0.6 % 0.0 - 6.0 % [facility] Erythrocyte distribution width (RBC) [Ratio] 14.1 % 11.5 - 15.0 % [facility] Hematocrit (Bld) [Volume fraction] 44.7 % 40.0 - 52.0 % [facility] Hemoglobin (Bld) [Mass/Vol] 14.5 g/dL 13.0 - 18.0 g/dL [facility] Immature granulocytes (Bld) [#/Vol] 0 10*3/uL NINF - 0.1 10*3/uL [facility] Immature granulocytes/100 WBC (Bld) 0.3 % 0.0 - 2.0 % [facility] Interpretation and review of laboratory results Normal [facility] Lymphocytes (Bld) [#/Vol] 1.7 10*3/uL 1.0 - 4.3 10*3/uL [facility] Lymphocytes/100 WBC (Bld) 22.3 % 15.0 - 45.0 % [facility] MCH (RBC) [Entitic mass] 31.8 pg 26.0 - 34.0 pg [facility] MCHC (RBC) [Mass/Vol] 32.4 % 30.5 - 36.0 % [facility] MCV (RBC) [Entitic vol] 98 fL 77.0 - 99.0 fL [facility] Monocytes (Bld) [#/Vol] 0.7 10*3/uL 0.0 - 0.9 10*3/uL [facility] Monocytes/100 WBC (Bld) 8.9 % 5.0 - 13.0 % [facility] Neutrophils (Bld) [#/Vol] 5.2 10*3/uL 1.8 - 7.5 10*3/uL [facility] Neutrophils/100 WBC (Bld) 67.6 % 38.0 - 82.0 % [facility] Nucleated RBC/100 WBC (Bld) [Ratio] 0.3 % [facility] Platelet mean volume (Bld) [Entitic vol] 10.6 fL 9.0 - 12.7 fL [facility] Platelets (Bld) [#/Vol] 204 10*3/uL 140 - 440 10*3/uL [facility] RBC (Bld) [#/Vol] 4.56 10*6/uL 4.40 - 5.9 0 10*6/uL [facility] WBC (Bld) [#/Vol] 7.7 10*3/uL 3.6 - 10.7 10*3/uL [facility] CBC WITH AUTO DIFFERENTIALon 05-30-2024 Basophils (Bld) [#/Vol] 0.0 10*3/uL Normal 0.0-0.2 [facility] Comment on above: Performed By: #### L [id number] ####Cuff Cutter: LESLEE HERNANDEZ ([id number])[facility] ([facility])[address] [place] [address] Basophils/100 WBC (Bld) 0.3 % Normal 0.0-2.0 [facility] Comment on above: Performed By: #### L [id number] ####Cuff Cutter: LESLEE HERNANDEZ ([id number])[facility] ([facility])[address] Eosinophils (Bld) [#/Vol] 0.1 10*3/uL Normal 0.0-0.5 [facility] Comment on above: Performed By: #### L [id number] ####Cuff Cutter: LESLEE HERNANDEZ ([id number])[facility] ([facility])[address] Eosinophils/100 WBC (Bld) 0.6 % Normal 0.0-6.0 [facility] Comment on above: Performed By: #### L [id number] ####Cuff Cutter: LESLEE TURKTYRONE ([id number])[facility] ([facility])[address] Erythrocyte distribution width (RBC) [Ratio] 14.1 % Normal 11.5-15.0 [facility] Comment on above: Performed By: #### L [id number] ####Cuff Cutter: LESLEE HERNANDEZ ([id number])[facility] Hematocrit (Bld) [Volume fraction] 44.7 % Normal 40.0-52.0 [facility] Comment on above: Performed By: #### L [id number] ####Cuff Cutter: LESLEE HERNANDEZ ([id number])[facility] ([facility])[address] Hemoglobin (Bld) [Mass/Vol] 14.5 g/dL Normal 13.0-18.0 [facility] Comment on above: Performed By: #### L [id number] ####Cuff Cutter: LESLEE HERNANDEZ ([id number])[facility] ([facility])[address] IMMATURE GRANS % 0.3 % Normal 0.0-2.0 [facility] Comment on above: Performed By: #### L [id number] ####Cuff Cutter: LESLEE HERNANDEZ ([id number])[facility] ([facility])[address] IMMATURE GRANS ABSOLUTE 0.0 10*3/uL Normal <0.1 [facility] Comment on above: Performed By: #### L [id number] ####Cuff Cutter: LESLEE HERNANDEZ ([id number])[facility] ([facility])[address] Lymphocytes (Bld) [#/Vol] 1.7 10*3/uL Normal 1.0-4.3 [facility] Comment on above: Performed By: #### L [id number] ####Cuff Cutter: LESLEE TURKTYRONE ([id number])[facility] [place] ([facility])[address] Lymphocytes/100 WBC (Bld) 22.3 % Normal 15.0-45.0 [facility] Comment on above: Performed By: #### L [id number] ####Cuff Cutter: LESLEE HERNANDEZ ([id number])[facility] [place] ([facility])[address] MCH (RBC) [Entitic mass] 31.8 pg Normal 26.0-34.0 [facility] Comment on above: Performed By: #### L [id number] ####Cuff Cutter: LESLEE HERNANDEZ ([id number])[facility] [place] ([facility])[address] MCHC 32.4 % Normal 30.5-36.0 [facility] Comment on above: Performed By: #### L [id number] ####Cuff Cutter: LESLEE HERNANDEZ ([id number])[facility] [place] ([facility])[address] [place] [address] MCV (RBC) [Entitic vol] 98.0 fL Normal 77.0-99.0 [facility] Comment on above: Performed By: #### L [id number] ####Cuff Cutter: LESLEE HERNANDEZ ([id number])[facility] [place] ([facility])[address] Monocytes (Bld) [#/Vol] 0.7 10*3/uL Normal 0.0-0.9 [facility] Comment on above: Performed By: #### L [id number] ####Cuff Cutter: LESLEE HERNANDEZ ([id number])[facility] [place] ([facility])[address] Monocytes/100 WBC (Bld) 8.9 % Normal 5.0-13.0 [facility] Comment on above: Performed By: #### L [id number] ####Cuff Cutter: LESLEE HERNANDEZ ([id number])[facility] [place] ([facility])[address] NEUTROPHILS ABSOLUTE 5.2 10*3/uL Normal 1.8-7.5 [facility] Comment on above: Performed By: #### L [id number] ####Cuff Cutter: LESLEE HERNANDEZ ([id number])[facility] [place] ([facility])[address] Neutrophils/100 WBC (Bld) 67.6 % Normal 38.0-82.0 [facility] Comment on above: Performed By: #### L [id number] ####Cuff Cutter: LESLEE HERNANDEZ ([id number])[facility] [place] ([facility])[address] NRBC 0.3 /100 WBCs Normal 0.0-2.0 [facility] Comment on above: Performed By: #### L [id number] ####Cuff Cutter: LESLEE HERNANDEZ ([id number])[facility] [place] ([facility])[address] Platelet mean volume (Bld) [Entitic vol] 10.6 fL Normal 9.0-12.7 [facility] Comment on above: Performed By: #### L [id number] ####Cuff Cutter: LESLEE HERNANDEZ ([id number])[facility] [place] ([facility])[address] Platelets (Bld) [#/Vol] 204 10*3/uL Normal 140-440 [facility] Comment on above: Performed By: #### L [id number] ####Cuff Cutter: LESLEE HERNANDEZ ([id number])[facility] [place] ([facility])[address] [place] [address] [place] RBC (Bld) [#/Vol] 4.56 10*6/uL Normal 4.40-5.90 [facility] Comment on above: Performed By: #### L [id number] ####Cuff Cutter: LESLEE HERNANDEZ ([id number])[facility] [place] ([facility])[address] WBC (Bld) [#/Vol] 7.7 10*3/uL Normal 3.6-10.7 [facility] Comment on above: Performed By: #### L [id number] ####Cuff Cutter: LESLEE HERNANDEZ ([id number])[facility] [place] ([facility])[address] COMPREHENSIVE METABOLIC PANE Ming 05-30-2024 Albumin [Mass/Vol] 3.1 g/dL Low 3.5-5.0 [facility] Comment on above: Performed By: #### L [id number] ####Cuff Cutter: LESLEE HERNANDEZ ([id number])[facility] [place] ([facility])[address] ALP [Catalytic activity/Vol] 108 U/L Normal 38-126 [facility] Comment on above: Performed By: #### L AB17 ####Cuff Cutter: LESLEE HERNANDEZ ([id number])[facility] [place] ([facility])[address] ALT [Catalytic activity/Vol] 160 U/L High 0-49 [facility] Comment on above: Performed By: #### L AB17 ####Cuff Cutter: LESLEE HERNANDEZ ([id number])[facility] [place] ([facility])[address] Anion gap [Moles/Vol] 6 mmol/L Normal 3-13 [facility] Comment on above: Performed By: #### L [id number] ####Cuff Cutter: LESLEE HERNANDEZ ([id number])[facility] [place] ([facility])[address] [place] [address] [place] AST [Catalytic activity/Vol] 70 U/L High 15-46 [facility] Comment on above: Performed By: #### L AB17 ####Cuff Cutter: LELSEE HERNANDEZ ([id number])[facility] [place] ([facility])[address] Bilirubin [Mass/Vol] 1.1 mg/dL Normal 0.2-1.3 [facility] Comment on above: Performed By: #### L [id number] ####Cuff Cutter: LESLEE HERNANDEZ ([id number])[facility] [place] ([facility])[address] Calcium [Mass/Vol] 8.4 mg/dL Normal 8.4-10.4 [facility] Comment on above: Performed By: #### L AB17 ####Cuff Cutter: LESLEE HERNANDEZ ([id number])[facility] [place] ([facility])[address] [place] [address] [place] Chloride [Moles/Vol] 114 mmol/L High 98-107 [facility] Comment on above: Performed By: #### L AB17 ####Cuff Cutter: LESLEE HERNANDEZ ([id number])[facility] [place] ([facility])[address] [place] [address] [place] CO2 [Moles/Vol] 17 mmol/L Low 22-30 [facility] Comment on above: Performed By: #### L AB17 ####Cuff Cutter: LESLEE HERNANDEZ ([id number])[facility] [place] ([facility])[address] [place] [address] [place] Creatinine [Mass/Vol] 1.88 mg/dL High 0.66-1.25 [facility] Comment on above: Performed By: #### L AB17 ####Cuff Cutter: LESLEE HERNANDEZ ([id number])[facility] [place] ([facility])[address] [place] [address] [place] GLOMERULAR FILTRATION RATE ML/MIN/1.73 SQ M.PREDICTED 44.1 mL/min/1.73m*2 Low >60.0 [facility] Comment on above: Result Comment: Calc ulation based on the Chronic Kidney Disease Epidemiology Collaboration (CKD-EPI) equation refit without adjustment for race Performed By: #### L AB17 ####Cuff Cutter: LESLEE HERNANDEZ ([id number])[facility] ([facility])[address] Glucose [Mass/Vol] 124 mg/dL High 70-100 [facility] Comment on above: Performed By: #### L AB17 ####Cuff Cutter: LESLEE HERNANDEZ ([id number])[facility] [place] ([facility])[address] Potassium [Moles/Vol] 4.4 mmol/L Normal 3.5-5.1 [facility] Comment on above: Performed By: #### L AB17 ####Cuff Cutter: LESLEE HERNANDEZ ([id number])[facility] [place] ([facility])[address] Protein [Mass/Vol] 5.6 g/dL Low 6.3-8.2 [facility] Comment on above: Performed By: #### L AB17 ####Cuff Cutter: LESLEE HERNANDEZ ([id number])[facility] [place] ([facility])[address] Sodium [Moles/Vol] 136 mmol/L Normal 135-145 [facility] Comment on above: Performed By: #### L AB17 ####Cuff Cutter: LESLEE HERNANDEZ ([id number])[facility] [place] ([facility])[address] Urea nitrogen [Mass/Vol] 42 mg/dL High 9-20 [facility] Comment on above: Performed By: #### L AB17 ####Cuff Cutter: LESLEE HERNANDEZ ([id number])[facility] [place] ([facility])[address] Comprehensive metabolic 1998 panelon 05-30-2024 Albumin [Mass/Vol] 3.1 g/dL Low 3.5 - 5.0 g/dL [facility] ALP [Catalytic activity/Vol] 108 U/L 38 - 126 U/L [facility] ALT [Catalytic activity/Vol] 160 U/L High 0 - 49 U/L [facility] Anion gap [Moles/Vol] 6 mmol/L 3 - 13 mmol/L [facility] AST [Catalytic activity/Vol] 70 U/L High 15 - 46 U/L [facility] Bilirubin [Mass/Vol] 1.1 mg/dL 0.2 - 1 .3 mg/dL [facility] Calcium [Mass/Vol] 8.4 mg/dL 8.4 - 10. 4 mg/dL [facility] Chloride [Moles/Vol] 114 mmol/L High 98 - 10 7 mmol/L [facility] CO2 [Moles/Vol] 17 mmol/L Low 22 - 30 mmol/L [facility] Creatinine [Mass/Vol] 1.88 mg/dL High 0.66 - 1.25 mg/dL [facility] GFR/1.73 sq M.predicted (S/P/Bld) [Vol rate/Area] 44.1 mL/min Low - PINF [facility] Comment on above: Calculation based on the Chronic Kidney Disease Epidemiology Collaboration (CKD-EPI) equation refit without adjustment for race Glucose [Mass/Vol] 124 mg/dL High 70 - 100 mg/dL [facility] Interpretation and review of laboratory results Abnormal [facility] Potassium [Moles/Vol] 4.4 mmol/L 3.5 - 5.1 mmol/L [facility] Protein [Mass/Vol] 5.6 g/dL Low 6.3 - 8.2 g/dL [facility] Sodium [Moles/Vol] 136 mmol/L 135 - 145 mmol/L [facility] Urea nitrogen [Mass/Vol] 42 mg/dL High 9 - 20 mg/dL [facility] - Chemistry and C hemistry - challengeon 05-30-2024 25-hydroxyvitamin D3 [Mass/Vol] ng/mL Low 30 - 100 ng/mL [facility] Parathyrin.intact [Mass/Vol] 227.6 pg/mL High 7.5 - 53.5 pg/mL [facility] Nursing Noteon 05-30-2024 Nursing Note Normal [facility] Nursing Note Pt did not want to get stuck for labs and wanted to talk with daytime Dr about need for daily labs. Normal [facility] PHOSPHORUSon 05-30-2024 Phosphate [Mass/Vol] 4.7 mg/dL High 2.5-4.5 [facility] Comment on above: Performed By: #### L [id number] ####Cuff Cutter: LESLEE HERNANDEZ ([id number])[facility] ([facility])[address] PTH INTACTon 05-30-2024 PTH, INTACT 227.6 pg/mL High 7.5-53.5 [facility] Comment on above: Performed By: #### L [id number], [id number] ####Cuff Cutter: LESLEE HERNANDEZ ([id number])[facility] ([facility])[address] Parathyrin.intact [Mass/Vol] on 05-30-2024 Interpretation and review of laboratory results Abnormal [facility] Phosphate [Moles/Vol]on Interpretation and review of laboratory results Abnormal [facility] Phosphate [Mass/Vol] 4.7 mg/dL High 2.5 - 4 .5 mg/dL [facility] Progress Noteon 05-30-2024 Progress Note Normal [facility] VITAMIN D DEFICIENCY SCREENI NG (VIT D 25)on 05-30-2024 VIT D 25-OH, TOTAL <13 Low 30-100 [facility] Comment on above: Result Comment: ALEJANDRO Tatum COMMENTS:Therapy is based on measurement of Total 25-OHD with the following classification levels:Less than 20 ng/mL: Indicative of Vit D [id number] ng/mL: Suggests Vit D insufficiencyOptimal: Greater than or equal to 30 ng/mLTest performed by [employer] Competitive Immunoassay, measuring Total Vitamin D, not individual fractions. Performed By: #### L [id number], [id number] ####Cuff Cutter: LESLEE HERNANDEZ ([id number])[facility] ([facility])[address] CBC W Auto Differential pane l (Bld)Ordered By: Roberto Puckett on 05-29-2024 Basophils (Bld) [#/Vol] 0 10*3/uL 0.0 - 0.2 10*3/uL [facility] Basophils/100 WBC (Bld) 0.2 % 0.0 - 2.0 % [facility] Eosinophils (Bld) [#/Vol] 0 10*3/uL 0.0 - 0.5 10*3/uL [facility] Eosinophils/100 WBC (Bld) 0.3 % 0.0 - 6.0 % [facility] Erythrocyte distribution width (RBC) [Ratio] 14 % 11.5 - 15.0 % [facility] Hematocrit (Bld) [Volume fraction] 42.8 % 40.0 - 52.0 % [facility] Hemoglobin (Bld) [Mass/Vol] 13.5 g/dL 13.0 - 18.0 g/dL [facility] Immature granulocytes (Bld) [#/Vol] 0 10*3/uL NINF - 0.1 10*3/uL [facility] Immature granulocytes/100 WBC (Bld) 0.3 % 0.0 - 2.0 % [facility] Interpretation and review of laboratory results Abnormal [facility] Lymphocytes (Bld) [#/Vol] 1.6 10*3/uL 1.0 - 4.3 10*3/uL [facility] Lymphocytes/100 WBC (Bld) 25.8 % 15.0 - 45.0 % [facility] MCH (RBC) [Entitic mass] 31.8 pg 26.0 - 34.0 pg [facility] MCHC (RBC) [Mass/Vol] 31.5 % 30.5 - 36.0 % [facility] MCV (RBC) [Entitic vol] 100.9 fL High 77.0 - 99.0 fL [facility] Monocytes (Bld) [#/Vol] 0.4 10*3/uL 0.0 - 0.9 10*3/uL [facility] Monocytes/100 WBC (Bld) 5.9 % 5.0 - 13.0 % [facility] Neutrophils (Bld) [#/Vol] 4.3 10*3/uL 1.8 - 7.5 10*3/uL [facility] Neutrophils/100 WBC (Bld) 67.5 % 38.0 - 82.0 % [facility] Nucleated RBC/100 WBC (Bld) [Ratio] 0 % [facility] Platelet mean volume (Bld) [Entitic vol] 10.7 fL 9.0 - 12.7 fL [facility] Platelets (Bld) [#/Vol] 160 10*3/uL 140 - 440 10*3/uL [facility] RBC (Bld) [#/Vol] 4.24 10*6/uL Low 4.40 - 5.9 0 10*6/uL [facility] WBC (Bld) [#/Vol] 6.3 10*3/uL 3.6 - 10.7 10*3/uL [facility] CBC WITH AUTO DIFFERENTIALon 05-29-2024 Basophils (Bld) [#/Vol] 0.0 10*3/uL Normal 0.0-0.2 [facility] Comment on above: Performed By: #### L [id number] ####Cuff Cutter: LESLEE HERNANDEZ ([id number])[facility] ([facility])[address] [place] [address] Basophils/100 WBC (Bld) 0.2 % Normal 0.0-2.0 [facility] Comment on above: Performed By: #### L [id number] ####Cuff Cutter: LESLEE HERNANDEZ ([id number])[facility] [place] [address] Eosinophils (Bld) [#/Vol] 0.0 10*3/uL Normal 0.0-0.5 [facility] Comment on above: Performed By: #### L [id number] ####Cuff Cutter: LESLEE HERNANDEZ ([id number])[facility] [place] ([facility])[address] [place] [address] Eosinophils/100 WBC (Bld) 0.3 % Normal 0.0-6.0 [facility] Comment on above: Performed By: #### L [id number] ####Cuff Cutter: LESLEE HERNANDEZ ([id number])[facility] ([facility])[address] [place] [address] Erythrocyte distribution width (RBC) [Ratio] 14.0 % Normal 11.5-15.0 [facility] Comment on above: Performed By: #### L [id number] ####Cuff Cutter: LESLEE TURKTYRONE ([id number])[facility] ([facility])[address] [place] [address] Hematocrit (Bld) [Volume fraction] 42.8 % Normal 40.0-52.0 [facility] Comment on above: Performed By: #### L [id number] ####Cuff Cutter: LESLEE TURKTYRONE ([id number])[facility] [place] ([facility])[address] Hemoglobin (Bld) [Mass/Vol] 13.5 g/dL Normal 13.0-18.0 [facility] Comment on above: Performed By: #### L [id number] ####Cuff Cutter: LESLEE TURKTYRONE ([id number])[facility])[address] IMMATURE GRANS % 0.3 % Normal 0.0-2.0 [facility] Comment on above: Performed By: #### L [id number] ####Cuff Cutter: LESLEE HERNANDEZ ([id number])[facility] [place] [address] IMMATURE GRANS ABSOLUTE 0.0 10*3/uL Normal <0.1 [facility] Comment on above: Performed By: #### L [id number] ####Cuff Cutter: LESLEE HERNANDEZ ([id number])[facility] [place] ([facility])[address] [place] [address] Lymphocytes (Bld) [#/Vol] 1.6 10*3/uL Normal 1.0-4.3 [facility] Comment on above: Performed By: #### L [id number] ####Cuff Cutter: LESLEE HERNANDEZ ([id number])[facility] ([facility])[address] Lymphocytes/100 WBC (Bld) 25.8 % Normal 15.0-45.0 [facility] Comment on above: Performed By: #### L [id number] ####Cuff Cutter: LESLEE HERNANDEZ ([id number])[facility] [place] ([facility])[address] MCH (RBC) [Entitic mass] 31.8 pg Normal 26.0-34.0 [facility] Comment on above: Performed By: #### L [id number] ####Cuff Cutter: LESLEE HERNANDEZ ([id number])[facility] ([facility])[address] MCHC 31.5 % Normal 30.5-36.0 [facility] Comment on above: Performed By: #### L [id number] ####Cuff Cutter: LESLEE TURKTYRONE ([id number])[facility] [facility] ([facility] [place] [address] MCV (RBC) [Entitic vol] 100.9 fL High 77.0-99.0 [facility] Comment on above: Performed By: #### L [id number] ####Cuff Cutter: LESLEE HERNANDEZ ([id number])[facility] (SBHLAB)[address] [place] [address] Monocytes (Bld) [#/Vol] 0.4 10*3/uL Normal 0.0-0.9 [facility] Comment on above: Performed By: #### L [id number] ####Cuff Cutter: LESLEE HERNANDEZ ([id number])[facility] [place] (SBHLAB)[address] [place] [address] Monocytes/100 WBC (Bld) 5.9 % Normal 5.0-13.0 [facility] Comment on above: Performed By: #### L [id number] ####Cuff Cutter: LESLEE HERNANDEZ ([id number])[facility] (SBHLAB)[address] [place] [address] NEUTROPHILS ABSOLUTE 4.3 10*3/uL Normal 1.8-7.5 [facility] Comment on above: Performed By: #### L [id number] ####Cuff Cutter: LESLEE HERNANDEZ ([id number])[facility] [place] (SBHLAB)[address] Neutrophils/100 WBC (Bld) 67.5 % Normal 38.0-82.0 [facility] Comment on above: Performed By: #### L [id number] ####Cuff Cutter: LESLEE HERNANDEZ ([id number])[facility] [place] (SBHLAB)[address] NRBC 0.0 /100 WBCs Normal 0.0-2.0 [facility] Comment on above: Performed By: #### L [id number] ####Cuff Cutter: LESLEE HERNANDEZ ([id number])[facility] ([facility])[address] Platelet mean volume (Bld) [Entitic vol] 10.7 fL Normal 9.0-12.7 [facility] Comment on above: Performed By: #### L [id number] ####Cuff Cutter: LESLEE HERNANDEZ ([id number])[facility] (SBHLAB)[address] [place] [address] [place] Platelets (Bld) [#/Vol] 160 10*3/uL Normal 140-440 [facility] Comment on above: Performed By: #### L [id number] ####Cuff Cutter: LESLEE HERNANDEZ ([id number])[facility] [place] (SBHLAB)[address] [place] [address] [place] RBC (Bld) [#/Vol] 4.24 10*6/uL Low 4.40-5.90 [facility] Comment on above: Performed By: #### L [id number] ####Cuff Cutter: LESLEE HERNANDEZ ([id number])[facility] [place] (SBHLAB)[address] [place] [address] [place] WBC (Bld) [#/Vol] 6.3 10*3/uL Normal 3.6-10.7 [facility] Comment on above: Performed By: #### L [id number] ####Cuff Cutter: LESLEE HERNANDEZ ([id number])[facility] (SBHLAB)[address] COMPREHENSIVE METABOLIC PANE Ming 05-29-2024 Albumin [Mass/Vol] 3.0 g/dL Low 3.5-5.0 [facility] Comment on above: Performed By: #### L [id number] ####Cuff Cutter: LESLEE HERNANDEZ ([id number])[facility] [place] (SBHLAB)[address] ALP [Catalytic activity/Vol] 105 U/L Normal 38-126 [facility] Comment on above: Performed By: #### L AB17 ####Cuff Cutter: LESLEE HERNANDEZ ([id number])[facility] ([facility])[address] ALT [Catalytic activity/Vol] 114 U/L High 0-49 [facility] Comment on above: Performed By: #### L AB17 ####Cuff Cutter: LESLEE HERNANDEZ ([id number])[facility] (SBHLAB)[address] Anion gap [Moles/Vol] 4 mmol/L Normal 3-13 [facility] Comment on above: Performed By: #### L AB17 ####Cuff Cutter: LESLEE HERNANDEZ ([id number])[facility] (SBHLAB)[address] AST [Catalytic activity/Vol] 49 U/L High 15-46 [facility] Comment on above: Performed By: #### L AB17 ####Cuff Cutter: LESLEE HERNANDEZ ([id number])[facility] ([facility])[address] Bilirubin [Mass/Vol] 1.3 mg/dL Normal 0.2-1.3 [facility] Comment on above: Performed By: #### L AB17 ####Cuff Cutter: LESLEE HERNANDEZ ([id number])[facility] [place] (SBHLAB)[address] Calcium [Mass/Vol] 8.2 mg/dL Low 8.4-10.4 [facility] Comment on above: Performed By: #### L AB17 ####Cuff Cutter: LESLEE HERNANDEZ ([id number])[facility] [place] (SBHLAB)[address] [place] [address] [place] Chloride [Moles/Vol] 114 mmol/L High 98-107 [facility] Comment on above: Performed By: #### L AB17 ####Cuff Cutter: LESLEE HERNANDEZ ([id number])[facility] [place] (SB[facility]AB)[address] CO2 [Moles/Vol] 18 mmol/L Low 22-30 [facility] Comment on above: Performed By: #### L AB17 ####Cuff Cutter: LESLEE HERNANDEZ ([phone])[facility] [place] (SBHLAB)[address] [place] [address] [place] Creatinine [Mass/Vol] 1.73 mg/dL High 0.66-1.25 [facility] Comment on above: Performed By: #### L AB17 ####Cuff Cutter: LESLEE HERNANDEZ ([id number])[facility] [place] (SBHLAB)[address] [place] [address] [place] GLOMERULAR FILTRATION RATE ML/MIN/1.73 SQ M.PREDICTED 48.7 mL/min/1.73m*2 Low >60.0 [facility] Comment on above: Result Comment: Calc ulation based on the Chronic Kidney Disease Epidemiology Collaboration (CKD-EPI) equation refit without adjustment for race Performed By: #### L AB17 ####Cuff Cutter: LESLEE HERNANDEZ ([id number])[facility] [place] (SBHLAB)[address] [place] [address] [place] Glucose [Mass/Vol] 113 mg/dL High 70-100 [facility] Comment on above: Performed By: #### L AB17 ####Cuff Cutter: LESLEE HERNANDEZ ([id number])[facility] ([facility])[address] Potassium [Moles/Vol] 4.6 mmol/L Normal 3.5-5.1 [facility] Comment on above: Performed By: #### L AB17 ####Cuff Cutter: LESLEE HERNANDEZ ([id number])[facility] (SBHLAB)[address] Protein [Mass/Vol] 5.5 g/dL Low 6.3-8.2 [facility] Comment on above: Performed By: #### L AB17 ####Cuff Cutter: LESLEE HERNANDEZ ([id number])[facility] (SBHLAB)[address] Sodium [Moles/Vol] 136 mmol/L Normal 135-145 [facility] Comment on above: Performed By: #### L AB17 ####Cuff Cutter: LESLEE HERNANDEZ ([id number])[facility] ([facility])[address] Urea nitrogen [Mass/Vol] 41 mg/dL High 9-20 [facility] Comment on above: Performed By: #### L AB17 ####Cuff Cutter: LESLEE HERNANDEZ ([id number])[facility] ([facility])[address] [place] [address] Comprehensive metabolic 1998 panelon 05-29-2024 Albumin [Mass/Vol] 3 g/dL Low 3.5 - 5.0 g/dL [facility] ALP [Catalytic activity/Vol] 105 U/L 38 - 126 U/L [facility] ALT [Catalytic activity/Vol] 114 U/L High 0 - 49 U/L [facility] Anion gap [Moles/Vol] 4 mmol/L 3 - 13 mmol/L [facility] AST [Catalytic activity/Vol] 49 U/L High 15 - 46 U/L [facility] Bilirubin [Mass/Vol] 1.3 mg/dL 0.2 - 1 .3 mg/dL [facility] Calcium [Mass/Vol] 8.2 mg/dL Low 8.4 - 10. 4 mg/dL [facility] Chloride [Moles/Vol] 114 mmol/L High 98 - 10 7 mmol/L [facility] CO2 [Moles/Vol] 18 mmol/L Low 22 - 30 mmol/L [facility] Creatinine [Mass/Vol] 1.73 mg/dL High 0.66 - 1.25 mg/dL [facility] GFR/1.73 sq M.predicted (S/P/Bld) [Vol rate/Area] 48.7 mL/min Low - PINF [facility] Comment on above: Calculation based on the Chronic Kidney Disease Epidemiology Collaboration (CKD-EPI) equation refit without adjustment for race Glucose [Mass/Vol] 113 mg/dL High 70 - 100 mg/dL [facility] Interpretation and review of laboratory results Abnormal [facility] Potassium [Moles/Vol] 4.6 mmol/L 3.5 - 5.1 mmol/L [facility] Protein [Mass/Vol] 5.5 g/dL Low 6.3 - 8.2 g/dL [facility] Sodium [Moles/Vol] 136 mmol/L 135 - 145 mmol/L [facility] Urea nitrogen [Mass/Vol] 41 mg/dL High 9 - 20 mg/dL [facility] Consulton 05-29-2024 Consult Normal [facility] Progress Noteon 05-29-2024 Progress Note Normal [facility] Progress Note Normal [facility] Progress Note Normal [facility] US RETROPERITONEALon 024 US RETROPERITONEAL Normal [facility] US Retroperitoneumon 024 No acute process. Echogenic kidneys suggesting medical renal disease. Report Dictated on Electronically Signed By: Shane Galarza MD Electronically Signed Date/Time: 05/29/2024 10:36 AM [facility] [employer] [facility] Patient Name: CARLO MEDINA : 1980 Exam Date/Time: 05/29/2024 09:46 Procedure: US RETROPERITONEAL Ordering Provider: LINN MICHELLE Reason For Exam: CHRONIC KIDNEY DISEASE STAGE 3B Exam type: Ultrasound retroperitoneum. EXAM DATE AND TIME: 05/29/2024 9:46 AM EST INDICATION: 44 years Male with chronic kidney disease COMPARISON: None Technique: Grayscale sonographic images were obtained of the kidneys and bladder. Color Doppler was utilized. FINDINGS: RIGHT KIDNEY: Size: 11.3 cm in craniocaudal dimension Echogenicity: Increased cortical echogenicity Parenchymal thickness: Normal Contour: Smooth Pelvicalyceal dilatation: None Calculus: none Mass: none Cyst: none LEFT KIDNEY: Size: 9.1 cm in craniocaudal dimension Echogenicity: Increased cortical echogenicity Parenchymal thickness: Normal Contour: Smooth Pelvicalyceal dilatation: None Calculus: none Mass: none Cyst: none Bladder: Normal. [facility] Shane Galarza MD - 05/29/2024 [facility] 1980 [id number] Exam Date/Time: 05/29/2024 09:46 Procedure: US RETROPERITONEAL Ordering Provider: LINN MICHELLE Reason For Exam: CHRONIC KIDNEY DISEASE STAGE 3B Exam type: Ultrasound retroperitoneum. EXAM DATE AND TIME: 05/29/2024 9:46 AM EST INDICATION: 44 years Male with chronic kidney disease COMPARISON: None Technique: Grayscale sonographic images were obtained of the kidneys and bladder. Color Doppler was utilized. FINDINGS: RIGHT KIDNEY: Size: 11.3 cm in craniocaudal dimension Echogenicity: Increased cortical echogenicity Parenchymal thickness: Normal Contour: Smooth Pelvicalyceal dilatation: None Calculus: none Mass: none Cyst: none LEFT KIDNEY: Size: 9.1 cm in craniocaudal dimension Echogenicity: Increased cortical echogenicity Parenchymal thickness: Normal Contour: Smooth Pelvicalyceal dilatation: None Calculus: none Mass: none Cyst: none Bladder: Normal. IMPRESSION: No acute process. Echogenic kidneys suggesting medical renal disease. Report Dictated on Electronically Signed By: Shane Galarza MD Electronically Signed Date/Time: 05/29/2024 10:36 AM EST [facility] Radiology Study observation (narrative) [facility] 29-2023 30 Normal [facility] BASIC METABOLIC PANELon 11-2 Anion gap [Moles/Vol] 10 mmol/L Normal 3-13 [facility] Comment on above: Performed By: #### L AB15, [id number] ####Cuff Cutter: LESLEE HERNANDEZ ([id number])[facility] [place] (SBHLAB)[address] Calcium [Mass/Vol] 8.3 mg/dL Low 8.4-10.4 [facility] Comment on above: Performed By: #### L AB15, [id number] ####Cuff Cutter: LESLEE HERNANDEZ ([id number])[facility] [place] (SBHLAB)[address] Chloride [Moles/Vol] 116 mmol/L High 98-107 [facility] Comment on above: Performed By: #### L AB15, [id number] ####Cuff Cutter: LESLEE HERNANDEZ ([id number])[facility] [place] (SBHLAB)[address] CO2 [Moles/Vol] 14 mmol/L Low 22-30 [facility] Comment on above: Performed By: #### L AB15, [id number] ####Cuff Cutter: LESLEE HERNANDEZ ([id number])[facility] [place] (SBHLAB)[address] Creatinine [Mass/Vol] 1.74 mg/dL High 0.66-1.25 [facility] Comment on above: Performed By: #### L AB15, [id number] ####Cuff Cutter: LESLEE HERNANDEZ ([id number])[facility] [place] (SBHLAB)[address] GLOMERULAR FILTRATION RATE ML/MIN/1.73 SQ M.PREDICTED 48.4 mL/min/1.73m*2 Low >60.0 [facility] Comment on above: Result Comment: Calc ulation based on the Chronic Kidney Disease Epidemiology Collaboration (CKD-EPI) equation refit without adjustment for race Performed By: #### L AB15, [id number] ####Cuff Cutter: LESLEE HERNANDEZ ([id number])[facility] (SBHLAB)[address] Glucose [Mass/Vol] 96 mg/dL Normal 70-100 [facility] Comment on above: Performed By: #### L AB15, [id number] ####Cuff Cutter: LESLEE HERNANDEZ ([id number])[facility] (SBHLAB)[address] Potassium [Moles/Vol] 4.6 mmol/L Normal 3.5-5.1 [facility] Comment on above: Performed By: #### L AB15, [id number] ####Cuff Cutter: LESLEE HERNANDEZ ([id number])[facility] (SBHLAB)[address] [place] [address] [place] Sodium [Moles/Vol] 139 mmol/L Normal 135-145 [facility] Comment on above: Performed By: #### L AB15, [id number] ####Cuff Cutter: LESLEE HERNANDEZ ([id number])[facility] (SBHLAB)[address] [place] [address] [place] Urea nitrogen [Mass/Vol] 34 mg/dL High 9-20 [facility] Comment on above: Performed By: #### L AB15, MXP307 ####Cuff Cutter: LESLEE HERNANDEZ ([id number])[facility] ([facility])[address] [place] [address] [place] Anion gap [Moles/Vol] 8 mmol/L Normal 3-13 [facility] Comment on above: Performed By: #### L [id number], LAB20, LAB15, ARQ542, MRJ975, MKC513 ####Cuff Cutter: LESLEE HERNANDEZ ([id number])[facility] (SBHLAB)[address] [place] [address] [place] Calcium [Mass/Vol] 9.1 mg/dL Normal 8.4-10.4 [facility] Comment on above: Performed By: #### L [id number], LAB20, LAB15, QCR158, EOI493, XQZ790 ####Cuff Cutter: LESLEE HERNANDEZ ([id number])[facility] (SBHLAB)[address] Chloride [Moles/Vol] 114 mmol/L High 98-107 [facility] Comment on above: Performed By: #### L [id number], LAB20, LAB15, ZMS027, UKS978, DHS482 ####Cuff Cutter: LESLEE HERNANDEZ ([id number])[facility] ([facility])[address] CO2 [Moles/Vol] 19 mmol/L Low 22-30 [facility] Comment on above: Performed By: #### L [id number], LAB20, LAB15, XCV461, YJP924, JVX413 ####Cuff Cutter: LESLEE HERNANDEZ ([id number])[facility] ([facility])[address] Creatinine [Mass/Vol] 2.06 mg/dL High 0.66-1.25 [facility] Comment on above: Performed By: #### L [id number], LAB20, LAB15, MLL547, KJL936, WXK601 ####Cuff Cutter: LESLEE HERNANDEZ ([id number])[facility] (SBHLAB)[address] GLOMERULAR FILTRATION RATE ML/MIN/1.73 SQ M.PREDICTED 39.5 mL/min/1.73m*2 Low >60.0 [facility] Comment on above: Result Comment: Calc ulation based on the Chronic Kidney Disease Epidemiology Collaboration (CKD-EPI) equation refit without adjustment for race Performed By: #### L [id number], LAB20, LAB15, HAS993, BRP432, OZN761 ####Cuff Cutter: LESLEE HERNANDEZ ([id number])[facility] (SBHLAB)[address] Glucose [Mass/Vol] 120 mg/dL High 70-100 [facility] Comment on above: Performed By: #### L [id number], LAB20, LAB15, MYX539, MVY858, MGQ597 ####Cuff Cutter: LESLEE HERNANDEZ ([id number])[facility] [place] (SBHLAB)[address] Potassium [Moles/Vol] 4.6 mmol/L Normal 3.5-5.1 [facility] Comment on above: Performed By: #### L [id number], LAB20, LAB15, VWC426, BBZ121, CCQ402 ####Cuff Cutter: LESLEE HERNANDEZ ([id number])[facility] Sodium [Moles/Vol] 141 mmol/L Normal 135-145 [facility] Comment on above: Performed By: #### L [id number], LAB20, LAB15, DXT690, VMI053, LGW492 ####Cuff Cutter: LESLEE HERNANDEZ ([id number])[facility] ([facility] Urea nitrogen [Mass/Vol] 38 mg/dL High 9-20 [facility] Comment on above: Performed By: #### L [id number], LAB20, LAB15, NVO265, BMH323, JNE353 ####Cuff Cutter: LESLEE HERNANDEZ ([id number])[facility] BLOOD GAS, VENOUSon 05-28-20 24 Base excess Calc (BldV) [Moles/Vol] -6.1000 mmol/L Low -3.0-3.0 [facility] Comment on above: Performed By: #### L AB79 ####Cuff Cutter: LESLEE HERNANDEZ ([id number])[facility] (SBAB)[address] CO2 [Moles/Vol] 19.6 mmol/L Low 23.0-30.0 [facility] Comment on above: Performed By: #### L AB79 ####Cuff Cutter: LESLEE HERNANDEZ ([id number])[facility] [place] (SBHLAB)[address] HCO3 (Bld) [Moles/Vol] 18.5 mmol/L Low 21.0-30.[address] [facility] Comment on above: Performed By: #### L AB79 ####Cuff Cutter: LESLEE HERNANDEZ ([id number])[facility] [place] (SBHLAB)[address] Hemoglobin (Bld) [Mass/Vol] 16.6 g/dL Normal Screen only [facility] Comment on above: Performed By: #### L AB79 ####Cuff Cutter: LESLEE HERNANDEZ ([id number])[facility] ([facility])[address] OXYGEN (MM HG) IN VENOUS BLOOD 37.0 mm Hg Normal [facility] Comment on above: Performed By: #### L AB79 ####Cuff Cutter: LESLEE HERNANDEZ ([id number])[facility] ([facility])[address] OXYGEN SATURATION (%) IN VENOUS BLOOD 62.6 % Normal [facility] Comment on above: Performed By: #### L AB79 ####Cuff Cutter: LESLEE HERNANDEZ ([id number])[facility] (SBHLAB)[address] PCO2, JAZ 34.6 mm Hg Low 38.0-56.0 [facility] Comment on above: Performed By: #### L AB79 ####Cuff Cutter: LESLEE HERNANDEZ ([id number])[facility] ([facility])[address] PH VENOUS 7.347 Normal 7.320-7.420 [facility] Comment on above: Performed By: #### L AB79 ####Cuff Cutter: LESLEE HERNANDEZ ([id number])[facility] [place] (SBHLAB)[address] SOURCE OF OXYGEN Room Air Normal [facility] Comment on above: Result Comment: ALEJANDRO Tatum COMMENTS:Assessment of oxygenation is best done with an arterial blood gas determination. Reference ranges for pO2, bicarbonate, and base excess are for mixed venous blood. Specimens drawn from a peripheral vein will often have higher values.INTERPRET WITH CAUTION, pO2 VALUES FALSELY INCREASED DUE TO VACUUM IN TUBE. FOR ACCURATE RESULTS, PLEASE DRAW IN A SYRINGE. Performed By: #### L AB79 ####Cuff Cutter: LESLEE HERNANDEZ ([id number])[facility] [place] (SBHLAB)[address] Basic metabolic 1998 panelon 05-28-2024 Anion gap [Moles/Vol] 10 mmol/L 3 - 13 mmol/L [facility] Calcium [Mass/Vol] 8.3 mg/dL Low 8.4 - 10. 4 mg/dL [facility] Chloride [Moles/Vol] 116 mmol/L High 98 - 10 7 mmol/L [facility] CO2 [Moles/Vol] 14 mmol/L Low 22 - 30 mmol/L [facility] Creatinine [Mass/Vol] 1.74 mg/dL High 0.66 - 1.25 mg/dL [facility] GFR/1.73 sq M.predicted (S/P/Bld) [Vol rate/Area] 48.4 mL/min Low - PINF [facility] Comment on above: Calculation based on the Chronic Kidney Disease Epidemiology Collaboration (CKD-EPI) equation refit without adjustment for race Glucose [Mass/Vol] 96 mg/dL 70 - 100 mg/dL [facility] Interpretation and review of laboratory results Abnormal [facility] Potassium [Moles/Vol] 4.6 mmol/L 3.5 - 5.1 mmol/L [facility] Sodium [Moles/Vol] 139 mmol/L 135 - 145 mmol/L [facility] Urea nitrogen [Mass/Vol] 34 mg/dL High 9 - 20 mg/dL [facility] Anion gap [Moles/Vol] 8 mmol/L 3 - 13 mmol/L [facility] Calcium [Mass/Vol] 9.1 mg/dL 8.4 - 10. 4 mg/dL [facility] Chloride [Moles/Vol] 114 mmol/L High 98 - 10 7 mmol/L [facility] CO2 [Moles/Vol] 19 mmol/L Low 22 - 30 mmol/L [facility] Creatinine [Mass/Vol] 2.06 mg/dL High 0.66 - 1.25 mg/dL [facility] GFR/1.73 sq M.predicted (S/P/Bld) [Vol rate/Area] 39.5 mL/min Low - PINF [facility] Comment on above: Calculation based on the Chronic Kidney Disease Epidemiology Collaboration (CKD-EPI) equation refit without adjustment for race Glucose [Mass/Vol] 120 mg/dL High 70 - 100 mg/dL [facility] Potassium [Moles/Vol] 4.6 mmol/L 3.5 - 5.1 mmol/L [facility] Sodium [Moles/Vol] 141 mmol/L 135 - 145 mmol/L [facility] Urea nitrogen [Mass/Vol] 38 mg/dL High 9 - 20 mg/dL [facility] CBC W Auto Differential pane l (Bld)on 05-28-2024 Basophils (Bld) [#/Vol] 0 10*3/uL 0.0 - 0.2 10*3/uL [facility] Basophils/100 WBC (Bld) 0.2 % 0.0 - 2.0 % [facility] Eosinophils (Bld) [#/Vol] 0 10*3/uL 0.0 - 0.5 10*3/uL [facility] Eosinophils/100 WBC (Bld) 0.4 % 0.0 - 6.0 % [facility] Erythrocyte distribution width (RBC) [Ratio] 13.9 % 11.5 - 15.0 % [facility] Hematocrit (Bld) [Volume fraction] 48.3 % 40.0 - 52.0 % [facility] Hemoglobin (Bld) [Mass/Vol] 15.7 g/dL 13.0 - 18.0 g/dL [facility] Immature granulocytes (Bld) [#/Vol] 0 10*3/uL NINF - 0.1 10*3/uL [facility] Immature granulocytes/100 WBC (Bld) 0.2 % 0.0 - 2.0 % [facility] Interpretation and review of laboratory results Normal [facility] Lymphocytes (Bld) [#/Vol] 1.7 10*3/uL 1.0 - 4.3 10*3/uL [facility] Lymphocytes/100 WBC (Bld) 30.9 % 15.0 - 45.0 % [facility] MCH (RBC) [Entitic mass] 31.9 pg 26.0 - 34.0 pg [facility] MCHC (RBC) [Mass/Vol] 32.5 % 30.5 - 36.0 % [facility] MCV (RBC) [Entitic vol] 98.2 fL 77.0 - 99.0 fL [facility] Monocytes (Bld) [#/Vol] 0.3 10*3/uL 0.0 - 0.9 10*3/uL [facility] Monocytes/100 WBC (Bld) 5.7 % 5.0 - 13.0 % [facility] Neutrophils (Bld) [#/Vol] 3.4 10*3/uL 1.8 - 7.5 10*3/uL [facility] Neutrophils/100 WBC (Bld) 62.6 % 38.0 - 82.0 % [facility] Nucleated RBC/100 WBC (Bld) [Ratio] 0 % [facility] Platelet mean volume (Bld) [Entitic vol] 10.5 fL 9.0 - 12.7 fL [facility] Platelets (Bld) [#/Vol] 205 10*3/uL 140 - 440 10*3/uL [facility] RBC (Bld) [#/Vol] 4.92 10*6/uL 4.40 - 5.9 0 10*6/uL [facility] WBC (Bld) [#/Vol] 5.4 10*3/uL 3.6 - 10.7 10*3/uL [facility] CBC WITH AUTO DIFFERENTIALon 05-28-2024 Basophils (Bld) [#/Vol] 0.0 10*3/uL Normal 0.0-0.2 [facility] Comment on above: Performed By: #### L [id number] ####Cuff Cutter: LESLEE HERNANDEZ ([id number])[facility] ([facility])[address] [place] [address] Basophils/100 WBC (Bld) 0.2 % Normal 0.0-2.0 [facility] Comment on above: Performed By: #### L [id number] ####Cuff Cutter: LESLEE HERNANDEZ ([id number])[facility] ([facility])[address] [place] [address] Eosinophils (Bld) [#/Vol] 0.0 10*3/uL Normal 0.0-0.5 [facility] Comment on above: Performed By: #### L [id number] ####Cuff Cutter: LESLEE HERNANDEZ ([id number])[facility]N ([facility])[address] Eosinophils/100 WBC (Bld) 0.4 % Normal 0.0-6.0 [facility] Comment on above: Performed By: #### L [id number] ####Cuff Cutter: LESLEE TURKTYRONE ([id number])[facility] ([facility])[address] [place] [address] Erythrocyte distribution width (RBC) [Ratio] 13.9 % Normal 11.5-15.0 [facility] Comment on above: Performed By: #### L [id number] ####Cuff Cutter: LESLEE HERNANDEZ ([id number])[facility] ([facility])[address] [place] [address] Hematocrit (Bld) [Volume fraction] 48.3 % Normal 40.0-52.0 [facility] Comment on above: Performed By: #### L [id number] ####Cuff Cutter: LESLEE HERNANDEZ ([id number])[facility] ([facility])[address] [place] [address] Hemoglobin (Bld) [Mass/Vol] 15.7 g/dL Normal 13.0-18.0 [facility] Comment on above: Performed By: #### L [id number] ####Cuff Cutter: LESLEE HERNANDEZ ([id number])[facility] ([facility])[address] [place] [address] IMMATURE GRANS % 0.2 % Normal 0.0-2.0 [facility] Comment on above: Performed By: #### L [id number] ####Cuff Cutter: LESLEE TURKTYRONE ([id number])[facility]ILLKeyon KNOTTREHOB[facility] C[facility] SERVICESMarguerite ([facility])[address] IMMATURE GRANS ABSOLUTE 0.0 10*3/uL Normal <0.1 [facility] Comment on above: Performed By: #### L [id number] ####Cuff Cutter: LESLEE TURKTYRONE ([id number])[facility]ILLKeyon [facility] ([facility])[address] Lymphocytes (Bld) [#/Vol] 1.7 10*3/uL Normal 1.0-4.3 [facility] Comment on above: Performed By: #### L [id number] ####Cuff Cutter: LESLEE MARY ([id number])[facility] ([facility])[address] [place] [address] Lymphocytes/100 WBC (Bld) 30.9 % Normal 15.0-45.0 [facility] Comment on above: Performed By: #### L [id number] ####Cuff Cutter: LESLEE HERNANDEZ ([id number])[facility]HILLKeyon [place] ([facility])[address] [place] [address] MCH (RBC) [Entitic mass] 31.9 pg Normal 26.0-34.0 [facility] Comment on above: Performed By: #### L [id number] ####Cuff Cutter: LESLEE TURKTYRONE ([id number])[facility] ([facility])[address] [place] [address] MCHC 32.5 % Normal 30.5-36.0 [facility] Comment on above: Performed By: #### L [id number] ####Cuff Cutter: LESLEE HERNANDEZ ([id number])[facility] ([facility])[address] [place] [address] MCV (RBC) [Entitic vol] 98.2 fL Normal 77.0-99.0 [facility] Comment on above: Performed By: #### L [id number] ####Cuff Cutter: LESLEE HERNANDEZ ([id number])[facility] [place] ([facility])[address] Monocytes (Bld) [#/Vol] 0.3 10*3/uL Normal 0.0-0.9 [facility] Comment on above: Performed By: #### L [id number] ####Cuff Cutter: LESLEE HERNANDEZ ([id number])[facility] [place] ([facility])[address] Monocytes/100 WBC (Bld) 5.7 % Normal 5.0-13.0 [facility] Comment on above: Performed By: #### L [id number] ####Cuff Cutter: LESLEE HERNANDEZ ([id number])[facility] [place] ([facility])[address] [place] [address] NEUTROPHILS ABSOLUTE 3.4 10*3/uL Normal 1.8-7.5 [facility] Comment on above: Performed By: #### L [id number] ####Cuff Cutter: LESLEEFIDELIA HERNANDEZ ([id number])[facility] [place] ([facility])[address] Neutrophils/100 WBC (Bld) 62.6 % Normal 38.0-82.0 [facility] Comment on above: Performed By: #### L [id number] ####Cuff Cutter: LESLEE MARY ([id number])[facility] [place] ([facility])[address] NRBC 0.0 /100 WBCs Normal 0.0-2.0 [facility] Comment on above: Performed By: #### L [id number] ####Cuff Cutter: LESLEE MARY ([id number])[facility] [place] ([facility])[address] Platelet mean volume (Bld) [Entitic vol] 10.5 fL Normal 9.0-12.7 [facility] Comment on above: Performed By: #### L [id number] ####Cuff Cutter: LESLEE HERNANDEZ ([id number])[facility] ([facility])[address] Platelets (Bld) [#/Vol] 205 10*3/uL Normal 140-440 [facility] Comment on above: Performed By: #### L [id number] ####Cuff Cutter: LESLEE HERNANDEZ ([id number])[facility] ([facility])[address] RBC (Bld) [#/Vol] 4.92 10*6/uL Normal 4.40-5.90 [facility] Comment on above: Performed By: #### L [id number] ####Cuff Cutter: LESLEE HERNANDEZ ([id number])[facility] [place] ([facility])[address] WBC (Bld) [#/Vol] 5.4 10*3/uL Normal 3.6-10.7 [facility] Comment on above: Performed By: #### L [id number] ####Cuff Cutter: LESLEE HERNANDEZ ([id number])[facility] [place] ([facility])[address] CHLORIDE, URINE, RANDOMon CHLORIDE, UR RANDOM 45 mmol/L Normal 19-209 [facility] Comment on above: Performed By: #### L AB444, SLC250, NFU180, BYO850 ####Cuff Cutter: LESLEE HERNANDEZ ([id number])[facility] [place] ([facility])[address] COMPLETE URINALYSISon 2023 AMORPHOUS CRYSTALS (#/HPF) IN URINE Few Abnormal Negative [facility] Comment on above: Performed By: #### L [id number] ####Cuff Cutter: LESLEE HERNANDEZ ([id number])[facility] [place] ([facility])[address] BACTERIA (#/HPF) IN URINE Few Abnormal Negative [facility] Comment on above: Performed By: #### L [id number] ####Cuff Cutter: LESLEE HERNANDEZ ([id number])[facility] [place] ([facility])[address] BILIRUBIN, TOTAL PRESENCE IN URINE Negative Normal Negative [facility] Comment on above: Performed By: #### L [id number] ####Cuff Cutter: LESLEE HERNANDEZ ([id number])[facility]N ([facility])[address] Clarity (U) Clear Normal Clear [facility] Comment on above: Performed By: #### L [id number] ####Cuff Cutter: LESLEE HERNANDEZ ([id number])[facility] [place] ([facility])[address] Color (U) Yellow Normal Lt. Yellow [facility] Comment on above: Performed By: #### L [id number] ####Cuff Cutter: LESLEE HERNANDEZ ([id number])[facility]N ([facility])[address] GLUCOSE (MG/DL) IN URINE Normal Normal Normal (<70) [facility] Comment on above: Performed By: #### L [id number] ####Cuff Cutter: LESLEE HERNANDEZ ([id number])[facility]N ([facility])[address] GRANULAR CASTS (#/LPF) IN URINE 0-2 Abnormal Negative [facility] Comment on above: Performed By: #### L [id number] ####Cuff Cutter: LESLEE HERNANDEZ ([id number])[facility] [place] ([facility])[address] HEMOGLOBIN PRESENCE IN URINE 0.03 mg/dL Abnormal Negative [facility] Comment on above: Performed By: #### L [id number] ####Cuff Cutter: LESLEE HERNANDEZ ([id number])[facility] [place] ([facility])[address] HYALINE CASTS (#/LPF) IN URINE SEDIMENT BY MICROSCOPY 3-5 Abnormal Negative [facility] Comment on above: Performed By: #### L [id number] ####Cuff Cutter: LESLEE HERNANDEZ ([id number])[facility]N ([facility])[address] Ketones Ql (U) Trace Abnormal Negative [facility] Comment on above: Performed By: #### L [id number] ####Cuff Cutter: LESLEE HERNANDEZ ([id number])[facility] [place] ([facility])[address] LEUKOCYTE ESTERASE PRESENCE IN URINE BY TEST STRIP Negative Normal Negative [facility] Comment on above: Performed By: #### L [id number] ####Cuff Cutter: LESLEE HERNANDEZ ([id number])[facility] ([facility])[address] [place] [address] MUCUS (#/LPF) IN URINE SEDIMENT Moderate Abnormal Negative [facility] Comment on above: Performed By: #### L [id number] ####Cuff Cutter: LESLEE HERNANDEZ ([id number])[facility] ([facility])[address] [place] [address] NITRITE PRESENCE IN URINE Negative Normal Negative [facility] Comment on above: Performed By: #### L [id number] ####Cuff Cutter: LESLEE HERNANDEZ ([id number])[facility] [place] ([facility])[address] [place] [address] NON-SQUAMOUS EPITHELIAL (#/HPF) IN URINE 0-2 Abnormal Negative [facility] Comment on above: Performed By: #### L [id number] ####Cuff Cutter: LESLEE HERNANDEZ ([id number])[facility]N ([facility])[address] pH (U) 5.5 [pH] Normal 5.0-8.0 [facility] Comment on above: Performed By: #### L [id number] ####Cuff Cutter: LESLEE HERNANDEZ ([id number])[facility] [place] ([facility])[address] Protein (U) [Mass/Vol] 70 mg/dL Abnormal Negative [facility] Comment on above: Performed By: #### L [id number] ####Cuff Cutter: LESLEE HERNANDEZ ([id number])[facility] [place] ([facility])[address] [place] [address] [place] RBC (#/HPF) IN URINE SEDIMENT 0-2 Normal 0-2 [facility] Comment on above: Performed By: #### L [id number] ####Cuff Cutter: LESLEE HERNANDEZ ([id number])[facility] [place] ([facility])[address] Specific gravity (U) [Rel density] 1.032 High 1.005-1.030 [facility] Comment on above: Performed By: #### L [id number] ####Cuff Cutter: LESLEE HERNANDEZ ([id number])[facility] [place] ([facility])[address] [place] [address] [place] SQUAMOUS EPITHELIAL CELLS (#/HPF) IN URINE SEDIMENT 0-2 Normal 3-5 [facility] Comment on above: Performed By: #### L [id number] ####Cuff Cutter: LESLEE HERNANDEZ ([id number])[facility] [place] ([facility])[address] [place] [address] [place] UROBILINOGEN (MG/DL) IN URINE Normal Normal Normal (0-1) [facility] Comment on above: Performed By: #### L [id number] ####Cuff Cutter: LESLEE HERNANDEZ ([id number])[facility] [place] ([facility])[address] [place] [address] [place] WBC (LEUKOCYTE) (#/HPF) IN URINE SEDIMENT 3-5 Normal 0-5 [facility] Comment on above: Performed By: #### L [id number] ####Cuff Cutter: LESLEE HERNANDEZ ([id number])[facility] [place] ([facility])[address] [place] [address] [place] Consulton 05-28-2024 Consult Normal [facility] Consult Normal [facility] ECG 12-LEADon 05-28-2024 ECG 12-LEAD Normal [facility] ED Nursing Noteon 05-28-2024 ED Nursing Note Normal [facility] ED Provider Noteon ED Provider Note Normal [facility] HEPATIC FUNCTION PANELon Albumin [Mass/Vol] 3.8 g/dL Normal 3.5-5.0 [facility] Comment on above: Performed By: #### L [id number], LAB20, LAB15, NPI556, FDI714, ODN506 ####Cuff Cutter: LESLEE HERNANDEZ ([id number])[facility] ([facility])[address] ALP [Catalytic activity/Vol] 104 U/L Normal 38-126 [facility] Comment on above: Performed By: #### L [id number], LAB20, LAB15, QLR329, AKY003, FYT355 ####Cuff Cutter: LESLEE HERNANDEZ ([id number])[facility] ([facility])[address] [place] [address] [place] ALT [Catalytic activity/Vol] 129 U/L High 0-49 [facility] Comment on above: Performed By: #### L [id number], LAB20, LAB15, DEB229, ESX994, HLG830 ####Cuff Cutter: LESLEE HERNANDEZ ([id number])[facility] ([facility])[address] [place] [address] [place] AST [Catalytic activity/Vol] 48 U/L High 15-46 [facility] Comment on above: Performed By: #### L [id number], LAB20, LAB15, NFD000, EGH574, FZD999 ####Cuff Cutter: LESLEE HERNANDEZ ([id number])[facility] ([facility])[address] [place] [address] [place] Bilirubin [Mass/Vol] 1.8 mg/dL High 0.2-1.3 [facility] Comment on above: Performed By: #### L [id number], LAB20, LAB15, FUI822, FZU192, CKF019 ####Cuff Cutter: LESLEE HERNANDEZ ([id number])[facility] ([facility])[address] [place] [address] Bilirubin.indirect [Mass/Vol] 0.0 mg/dL Normal 0.0-0.3 [facility] Comment on above: Performed By: #### L [id number], LAB20, LAB15, PBZ383, DYK644, GKI231 ####Cuff Cutter: LESLEE HERNANDEZ ([id number])[facility] ([facility])[address] [place] [address] Protein [Mass/Vol] 6.8 g/dL Normal 6.3-8.2 [facility] Comment on above: Performed By: #### L [id number], LAB20, LAB15, PQJ930, OSW968, JEP198 ####Cuff Cutter: LESLEE HERNANDEZ ([id number])[facility] ([facility])[address] [place] [address] Hepatic function 2000 panelo n 05-28-2024 Albumin [Mass/Vol] 3.8 g/dL 3.5 - 5.0 g/dL [facility] ALP [Catalytic activity/Vol] 104 U/L 38 - 126 U/L [facility] ALT [Catalytic activity/Vol] 129 U/L High 0 - 49 U/L [facility] AST [Catalytic activity/Vol] 48 U/L High 15 - 46 U/L [facility] Bilirubin [Mass/Vol] 1.8 mg/dL High 0.2 - 1 .3 mg/dL [facility] Bilirubin.conjugated [Mass/Vol] 0 mg/dL 0.0 - 0.3 mg/dL [facility] Protein [Mass/Vol] 6.8 g/dL 6.3 - 8.2 g/dL [facility] Laboratory - Chemistry and C hemistry - challengeon 05-28-2024 Chloride (U) [Moles/Vol] 45 mmol/L 19 - 209 mmol/L [facility] Sodium (24H U) [Mass/Vol] 74 mmol/L 30 - 90 mmol/L [facility] Troponin I.cardiac [Mass/Vol] 0.037 ng/mL High NINF - 0.034 ng/mL [facility] TSH Qn 0.82 m[IU]/L [facility] Troponin I.cardiac [Mass/Vol] 0.051 ng/mL High NINF - 0.034 ng/mL [facility] Magnesium [Mass/Vol] 2.4 mg/dL High 1.6 - 2 .3 mg/dL [facility] Glucose [Mass/Vol] 120 mg/dL High 70 - 100 mg/dL [facility] - Chemistry and C hemistry - challengeOrdered By: Susan Patton on 05-28-2024 Base excess Calc (BldV) [Moles/Vol] -6.1000 mmol/L Low -3.0 - 3.0 mmol/L [facility] CO2 (BldV) [Partial pressure] 34.6 mm[Hg] Low [facility] CO2 [Moles/Vol] 19.6 mmol/L Low 23.0 - 30.0 mmol/L [facility] HCO3 (Bld) [Moles/Vol] 18.5 mmol/L Low 21.0 - 30.0 mmol/L [facility] Oxygen (BldV) [Partial pressure] 37 mm[Hg] mm Hg [facility] pH (BldV) 7.347 [pH] 7.320 - 7.420 [facility] - Hematology and Cell countsOrdered By: Susan Patton on 05-28-2024 Hemoglobin (Bld) [Mass/Vol] 16.6 g/dL Screen only [facility] - Urinalysison Protein (U) [Mass/Vol] 61 mg/dL High 0 - 12 mg/dL [facility] MAGNESIUMon 05-28-2024 Magnesium [Mass/Vol] 2.4 mg/dL High 1.6-2.3 [facility] Comment on above: Performed By: #### L [id number], LAB20, LAB15, WXV412, UWY994, MBN528 ####Cuff Cutter: LESLEE HERNANDEZ ([id number])[facility] ([facility])[address] [place] [address] MICROALBUMIN / CREATININE UR INE RATIOon 05-28-2024 CREATININE, URINE 293.8 mg/dL Normal No Range [facility] Comment on above: Performed By: #### L AB444, RGX657, RHN512, BGL129 ####Cuff Cutter: LESLEE HERNANDEZ ([id number])[facility] ([facility])[address] [place] [address] MICROALBUMIN, URINE 324.5 mg/L High 0.0-29.9 [facility] Comment on above: Result Comment: ALEJANDRO Tatum COMMENTS:Microalbumin concentrations <30 are considered normal, 30-300 are considered microalbuminuria (or risk of diabetic nephropathy), and >300 are considered clinical albuminuria (clinical nephropathy).Diabetes Care,27, Supplement 1, [id number] Performed By: #### Pedro AB444, NTC432, OSA820, FOG586 ####Cuff Cutter: LESLEE HERNANDEZ ([id number])[facility] ([facility])[address] [place] [address] MICROALBUMIN/CREATININ E RATIO 110.4 mg/g High 0.0-29.9 [facility] Comment on above: Performed By: #### Pedro AB444, QTC118, LIH505, ILQ227 ####Cuff Cutter: LESLEE HERNANDEZ ([id number])[facility] ([facility])[address] [place] [address] Microalbumin/Creatinine rati o panel (U)on 05-28-2024 Albumin DL <= 20 mg/L (U) [Mass/Vol] 324.5 mg/L High 0.0 - 29.9 mg/L [facility] Albumin/Creatinine DL <= 20 mg/L (U) [Mass ratio] 110.4 mg/g High 0.0 - 29.9 mg/g [facility] CREATININE, URINE 293.8 mg/dL No Range [facility] Interpretation and review of laboratory results Abnormal [facility] Microalbumin concentrations <30 are considered normal, 30-300 are considered microalbuminuria (or risk of diabetic nephropathy), and >300 are considered clinical albuminuria (clinical nephropathy). Diabetes Care,27, Supplement 1, S79-83, 2004 [facility] NT PRO BNPon 05-28-2024 Natriuretic peptide B (Bld) [Mass/Vol] 40479 pg/mL High <20-100 [facility] Comment on above: Performed By: #### L [id number], LAB20, LAB15, TAU404, GMU414, GXI536 ####Cuff Cutter: LESLEE HERNANDEZ ([id number])[facility] [place] ([facility])[address] Natriuretic peptide B [Mass/ Vol]on 05-28-2024 Natriuretic peptide B (Bld) [Mass/Vol] 27100 pg/mL High <20 - 100 [facility] No Panel Informationon 05-28 Interpretation and review of laboratory results Normal [facility] Interpretation and review of laboratory results Abnormal [facility] Interpretation and review of laboratory results Abnormal [facility] P [place] 54 degrees [facility] IN Interval 133 ms [facility] QRS [place] -28 degrees [facility] QRSD Interval 94 ms [facility] QT Interval 329 ms [facility] QTC Interval 473 ms [facility] T Wave [place] 103 degrees [facility] Izaiah Martins MD - 05/28/2024 IMPRESSION: Sinus tachycardia Probable left atrial enlargement Abnormal R-wave progression, late transition Left ventricular hypertrophy Nonspecific T abnormalities, lateral leads Anterior ST elevation, probably due to LVH Electronically Signed On 05-28-2024 09:01:45 EST by Izaiah Martins [facility] Interpretation and review of laboratory results Abnormal [facility] Interpretation and review of laboratory results Abnormal [facility]: [facility], [address] [address] CLIA ID: [id number] [facility] No Panel InformationOrdered By: Susan Patton on 05-28-2024 Interpretation and review of laboratory results Abnormal [facility] Source Of Oxygen Room Air [facility] xavi Assessment of oxygenation is best done with an arterial blood gas determination. Reference ranges for pO2, bicarbonate, and base excess are for mixed venous blood. Specimens drawn from a peripheral vein will often have higher values. INTERPRET WITH CAUTION, pO2 VALUES FALSELY INCREASED DUE TO VACUUM IN TUBE. FOR ACCURATE RESULTS, PLEASE DRAW IN A SYRINGE. [facility] PROTEIN, URINE, RANDOMon Protein (U) [Mass/Vol] 61 mg/dL High 0-12 [facility] Comment on above: Performed By: #### L AB444, TGC207, MAE056, MOO519 ####Cuff Cutter: LESLEE HERNANDEZ ([id number])[facility] ([facility])[address] [place] [address] SODIUM, URINE, RANDOMon 05-01 Sodium (U) [Moles/Vol] 74 mmol/L Normal 30-90 [facility] Comment on above: Performed By: #### L AB444, OLA557, UOU477, DTY091 ####Cuff Cutter: LESLEE HERNANDEZ ([id number])[facility] ([facility])[address] [place] [address] THYROID STIMULATING HORMONEo n 05-28-2024 THYROID STIMULATING HORMONE 0.820 uIU/mL Normal 0.465-4.680 [facility] Comment on above: Performed By: #### L [id number], LAB20, LAB15, EAB638, MDP779, JIL094 ####Cuff Cutter: LESLEE HERNANDEZ ([id number])[facility] ([facility])[address] [place] [address] [place] TROPONIN Ion 05-28-2024 Troponin I.cardiac [Mass/Vol] 0.037 ng/mL High <0.034 [facility] Comment on above: Result Comment: ALEJANDRO Tatum COMMENTS:Patients with high levels of Biotin oral intake (ie >5 mg/day) may have falsely decreased Troponin levels. Performed By: #### L AB15, RNS642 ####Cuff Cutter: LESLEE HERNANDEZ ([id number])[facility] ([facility])[address] [place] [address] [place] TROPONIN, WITH SERIAL REFLEX on 05-28-2024 Troponin I.cardiac [Mass/Vol] 0.051 ng/mL High <0.034 [facility] Comment on above: Result Comment: ALEJANDRO Tatum COMMENTS:Patients with high levels of Biotin oral intake (ie >5 mg/day) may have falsely decreased Troponin levels. Performed By: #### L [id number], [id number], LAB15, [id number], [id number], [id number] ####Cuff Cutter: LESLEE HERNANDEZ ([id number])[facility] ([facility])[address] [place] [address] TSH Qnon 05-28-2024 Interpretation and review of laboratory results Normal [facility] Troponin I.cardiac [Mass/Vol ]on 05-28-2024 Interpretation and review of laboratory results Abnormal [facility] Patients with high levels of Biotin oral intake (ie >5 mg/day) may have falsely decreased Troponin levels. [facility] Patients with high levels of Biotin oral intake (ie >5 mg/day) may have falsely decreased Troponin levels. [facility] Urinalysis complete panel (U )Ordered By: Jessica Santoro on 05-28-2024 Amorphous Crystals, Urine Few Abnormal Negative /HPF [facility] Bacteria LM.HPF (Urine sed) [#/Area] Few Abnormal Negative /HPF [facility] Bilirubin Ql (U) Negative Negative mg/dL [facility] Clarity (U) Clear Clear [facility] Color (U) Yellow Lt. Yellow [facility] Epithelial cells.squamous LM.HPF (Urine sed) [#/Area] 0-2 [facility] Glucose Ql (U) Normal Normal (<70) mg/dL [facility] Granular casts LM.HPF (Urine sed) [#/Area] 0-2 Abnormal Negative /[facility] Hemoglobin Ql (U) 0.03 mg/dL [facility] Hyaline casts Auto (Urine sed) [#/Area] 3-5 Abnormal Negative [facility] Interpretation and review of laboratory results Abnormal [facility] Ketones (U) [Mass/Vol] Trace Abnormal Negat dai mg/dL [facility] Leukocyte esterase Test strip Ql (U) Negative Negative Nicky/uL [facility] Mucus LM.HPF (Urine sed) [#/Area] Moderate Abnormal Negative /LPF [facility] Nitrite Ql (U) Negative Negative [facility] Non-Squamous Epithalial Cells, Urine 0-2 Abnormal Negative /HPF [facility] pH (U) 5.5 [pH] 5.0 - 8.0 pH [facility] Protein (U) [Mass/Vol] 70 mg/dL Abnormal Negative [facility] RBC LM.HPF (Urine sed) [#/Area] 0-2 [facility] Specific gravity (U) [Rel density] 1.032 High 1.005 - 1.030 [facility] Urobilinogen (U) [Mass/Vol] Normal Normal (0-1) mg/dL [facility] WBC LM.HPF (Urine sed) [#/Area] 3-5 [facility] Vital signson 05-28-2024 Heart rate 124 /min bpm [facility] Vital signsOrdered By: Radu Patton on 05-28-2024 Oxygen saturation in Venous blood 62.6 % [facility] XR Chest Single viewon 05-28 FINDINGS AND IMPRESSION: SUPPORT DEVICES: None OSSEOUS STRUCTURES: Degenerative changes in the thoracic spine. HEART AND MEDIASTINUM: The cardiac silhouette is enlarged. The mediastinum is unremarkable. LUNGS AND PLEURA: The lungs are clear. No sizable pleural effusion. Report Dictated on Electronically Signed By: Shane Galarza MD Electronically Signed Date/Time: 05/28/2024 8:23 AM [facility] Patient Name: CARLO MEDINA : 1980 Exam Date/Time: 05/28/2024 08:13 Procedure: XR CHEST 1 VIEW Ordering Provider: MARTINS KEVIN Reason For Exam: DYSPNEA CHEST CLINICAL INDICATION: dyspnea TECHNIQUE: AP portable chest COMPARISON: 04/28/24 [facility] Shane Galarza MD - 05/28/2024 Patient Name: CARLO MEDINA : 1980 Exam Date/Time: 05/28/2024 08:13 Procedure: XR CHEST 1 VIEW Ordering Provider: MARTINS KEVIN Reason For Exam: DYSPNEA CHEST CLINICAL INDICATION: dyspnea TECHNIQUE: AP portable chest COMPARISON: 04/28/24 IMPRESSION: FINDINGS AND IMPRESSION: SUPPORT DEVICES: None OSSEOUS STRUCTURES: Degenerative changes in the thoracic spine. HEART AND MEDIASTINUM: The cardiac silhouette is enlarged. The mediastinum is unremarkable. LUNGS AND PLEURA: The lungs are clear. No sizable pleural effusion. Report Dictated on Electronically Signed By: Shane Galarza MD Electronically Signed Date/Time: 05/28/2024 8:23 AM EST [facility] Radiology Study observation (narrative) [facility] XR Chest Single viewOrdered By: Shane Galarza on 05-28-2024 [facility] Work Phone: 36on 05-05-2024 36 Normal [facility] 36on 04-30-2024 36 Normal [facility] 36 Normal [facility] ECG 12-LEADon 04-30-2024 ECG 12-LEAD IMPRESSION: Sinus tachycardia Probable left atrial enlargement Probable LVH with secondary repol abnrm Electronically Signed On 04-30-2024 12:14:37 EDT by Shannan Lima Normal [facility] 36on 04-29-2024 36 Normal [facility] 30on 04-28-2024 30 Normal [facility] [id number] 04-28-2024 [id number] Normal [facility] [id number] Normal [facility] [id number] Normal [facility] BASIC METABOLIC PANELon 10-3 Anion gap [Moles/Vol] 5 mmol/L Normal 3-13 [facility] Comment on above: Performed By: #### L AB15, [id number], [id number] ####Cuff Cutter: NICOLE BOWERS ([id number])[facility] [employer]TMAN (SWRLAB)[address] [place] [address] Calcium [Mass/Vol] 9.0 mg/dL Normal 8.4-10.4 [facility] Comment on above: Performed By: #### L AB15, [id number], [id number] ####Cuff Cutter: NICOLE BOWERS ([id number])[facility] [employer] RITTMAN (SWRLAB)[address] [place] [address] [place] Chloride [Moles/Vol] 109 mmol/L High 98-107 [facility] Comment on above: Performed By: #### Pedro ORTEZ, [id number], [id number] ####Cuff Cutter: NICOLE BOWERS ([phone])[facility] YEH RITTMAN (SWRLAB)[address] CO2 [Moles/Vol] 26 mmol/L Normal 22-30 [facility] Comment on above: Performed By: #### Pedro ORTEZ, [id number], [id number] ####Cuff Cutter: NICOLE BOWERS ([id number])[facility] YEH RITTMAN (SWRLAB)[address] [place] [address] [place] Creatinine [Mass/Vol] 1.58 mg/dL High 0.66-1.25 [facility] Comment on above: Performed By: #### Pedro ORTEZ, [id number], [id number] ####Cuff Cutter: NICOLE BOWERS ([id number])[facility] YEH RITTMAN (SWRLAB)[address] [place] [address] [place] GLOMERULAR FILTRATION RATE ML/MIN/1.73 SQ M.PREDICTED 54.3 mL/min/1.73m*2 Low >60.0 [facility] Comment on above: Result Comment: Calc ulation based on the Chronic Kidney Disease Epidemiology Collaboration (CKD-EPI) equation refit without adjustment for race Performed By: #### Pedro ORTEZ, [id number], [id number] ####Cuff Cutter: NICOLE BOWERS ([id number])[facility] YEH RITTMAN (SWRLAB)[address] [place] [address] [place] Glucose [Mass/Vol] 128 mg/dL High 70-100 [facility] Comment on above: Performed By: #### Pedro JESSICA15, [id number], [id number] ####Cuff Cutter: NICOLE BOWERS ([id number])[facility] YEH RITTMAN (SWRLAB)[address] [place] [address] [place] Potassium [Moles/Vol] 4.2 mmol/L Normal 3.5-5.1 [facility] Comment on above: Performed By: #### L AB15, [id number], [id number] ####Cuff Cutter: NICOLE BOWERS ([id number])[facility]ITALKAMALJIT RITTM[facility] (SWRLAB)[address] [place] [address] Sodium [Moles/Vol] 140 mmol/L Normal 135-145 [facility] Comment on above: Performed By: #### L AB15, [id number], [id number] ####Cuff Cutter: NICOLE BOWERS ([id number])[facility] RITTMAN (SWRLAB)[address] [place] [address] Urea nitrogen [Mass/Vol] 21 mg/dL High 9-20 [facility] Comment on above: Performed By: #### L AB15, [id number], [id number] ####Cuff Cutter: NICOLE BOWERS ([id number])[facility] [employer]rapeuticsTMAN (SWRLAB)[address] [place] [address] Bacteria identified Aer cx N om (Lower resp)on 04-28-2024 Gram Stain Result Many Epithelial cell s per low power field Abnormal [facility] Gram Stain Result Many Polymorphonuclear leukocytes per low power field Abnormal [facility] Gram Stain Result Positive Abnormal [facility] ealt Gram Stain Result Smear contains >= 15 squamous cells per low power field, suggestive of poor quality. Culture not performed. Please re-collect if clinically indicated. Abnormal [facility] Interpretation and review of laboratory results Abnormal [facility] Basic metabolic 1998 panelon 04-28-2024 Anion gap [Moles/Vol] 5 mmol/L 3 - 13 mmol/L [facility] Calcium [Mass/Vol] 9 mg/dL 8.4 - 10. 4 mg/dL [facility] Chloride [Moles/Vol] 109 mmol/L High 98 - 10 7 mmol/L [facility] CO2 [Moles/Vol] 26 mmol/L 22 - 30 mmol/L [facility] Creatinine [Mass/Vol] 1.58 mg/dL High 0.66 - 1.25 mg/dL [facility] GFR/1.73 sq M.predicted (S/P/Bld) [Vol rate/Area] 54.3 mL/min Low - PINF [facility] Comment on above: Calculation based on the Chronic Kidney Disease Epidemiology Collaboration (CKD-EPI) equation refit without adjustment for race Glucose [Mass/Vol] 128 mg/dL High 70 - 100 mg/dL [facility] Interpretation and review of laboratory results Abnormal [facility] Potassium [Moles/Vol] 4.2 mmol/L 3.5 - 5.1 mmol/L [facility] Sodium [Moles/Vol] 140 mmol/L 135 - 145 mmol/L [facility] Urea nitrogen [Mass/Vol] 21 mg/dL High 9 - 20 mg/dL [facility] CBC W Auto Differential pane l (Bld)on 04-28-2024 Basophils (Bld) [#/Vol] 0 10*3/uL 0.0 - 0.2 10*3/uL [facility] Basophils/100 WBC (Bld) 0.2 % 0.0 - 2.0 % [facility] Eosinophils (Bld) [#/Vol] 0.1 10*3/uL 0.0 - 0.5 10*3/uL [facility] Eosinophils/100 WBC (Bld) 0.6 % 0.0 - 6.0 % [facility] Erythrocyte distribution width (RBC) [Ratio] 12 % 11.5 - 15.0 % [facility] Hematocrit (Bld) [Volume fraction] 36 % Low 40.0 - 52.0 % [facility] Hemoglobin (Bld) [Mass/Vol] 12.1 g/dL Low 13.0 - 18.0 g/dL [facility] Immature granulocytes (Bld) [#/Vol] 0 10*3/uL NINF - 0.1 10*3/uL [facility] Immature granulocytes/100 WBC (Bld) 0 % 0.0 - 2.0 % [facility] Interpretation and review of laboratory results Abnormal [facility] Lymphocytes (Bld) [#/Vol] 1.6 10*3/uL 1.0 - 4.3 10*3/uL [facility] Lymphocytes/100 WBC (Bld) 19.5 % 15.0 - 45.0 % [facility] MCH (RBC) [Entitic mass] 31.4 pg 26.0 - 34.0 pg [facility] MCHC (RBC) [Mass/Vol] 33.6 % 30.5 - 36.0 % [facility] MCV (RBC) [Entitic vol] 93.5 fL 77.0 - 99.0 fL [facility] Monocytes (Bld) [#/Vol] 0.6 10*3/uL 0.0 - 0.9 10*3/uL [facility] Monocytes/100 WBC (Bld) 7.6 % 5.0 - 13.0 % [facility] Neutrophils (Bld) [#/Vol] 5.8 10*3/uL 1.8 - 7.5 10*3/uL [facility] Neutrophils/100 WBC (Bld) 72.1 % 38.0 - 82.0 % [facility] Nucleated RBC/100 WBC (Bld) [Ratio] 0 % [facility] Platelet mean volume (Bld) [Entitic vol] 9 fL 9.0 - 12.7 fL [facility] Comment on above: MPV is a calculated measurement using platelet volume ratio Platelets (Bld) [#/Vol] 277 10*3/uL 140 - 440 10*3/uL [facility] RBC (Bld) [#/Vol] 3.85 10*6/uL Low 4.40 - 5.9 0 10*6/uL [facility] WBC (Bld) [#/Vol] 8 10*3/uL 3.6 - 10.7 10*3/uL [facility] CBC WITH AUTO DIFFERENTIALon 04-28-2024 Basophils (Bld) [#/Vol] 0.0 10*3/uL Normal 0.0-0.2 [facility] Comment on above: Performed By: #### L [id number] ####Cuff Cutter: NICOLE BOWERS ([id number])[facility] [employer]JIT RITTMAN (SWRLAB)[address] [place] [address] Basophils/100 WBC (Bld) 0.2 % Normal 0.0-2.0 [facility] Comment on above: Performed By: #### L [id number] ####Cuff Cutter: NICOLE BOWERS ([id number])[facility] [employer]ALJIT RITTMAN (SWRLAB)[address] [place] [address] [place] Eosinophils (Bld) [#/Vol] 0.1 10*3/uL Normal 0.0-0.5 [facility] Comment on above: Performed By: #### L [id number] ####Cuff Cutter: NICOLE BOWERS ([id number])[employer] [facility] RITTMAN (SWRLAB)[address] [place] [address] Eosinophils/100 WBC (Bld) 0.6 % Normal 0.0-6.0 [facility] Comment on above: Performed By: #### L [id number] ####Cuff Cutter: NICOLE BOWERS ([id number])[facility] YEH RITTMAN (SWRLAB)[address] [place] [address] Erythrocyte distribution width (RBC) [Ratio] 12.0 % Normal 11.5-15.0 [facility] Comment on above: Performed By: #### L [id number] ####Cuff Cutter: NICOLE BOWERS ([id number])[facility] YEH RITTMAN (SWRLAB)[address] [place] [address] Hematocrit (Bld) [Volume fraction] 36.0 % Low 40.0-52.0 [facility] Comment on above: Performed By: #### L [id number] ####Cuff Cutter: NICOLE BOWERS ([id number])[facility] YEH RITTMAN (SWRLAB)[address] [place] [address] Hemoglobin (Bld) [Mass/Vol] 12.1 g/dL Low 13.0-18.0 [facility] Comment on above: Performed By: #### L [id number] ####Cuff Cutter: NICOLE BOWERS ([id number])[facility] YEH RITTMAN (SWRLAB)[address] [place] [address] IMMATURE GRANS % 0.0 % Normal 0.0-2.0 [facility] Comment on above: Performed By: #### L [id number] ####Cuff Cutter: NICOLE BOWERS ([id number])[facility] YEH RITTMAN (SWRLAB)[address] [place] [address] IMMATURE GRANS ABSOLUTE 0.0 10*3/uL Normal <0.1 [facility] Comment on above: Performed By: #### L [id number] ####Cuff Cutter: NICOLE BOWERS ([id number])[facility] YEH RITTMAN (SWRLAB)[address] [place] [address] Lymphocytes (Bld) [#/Vol] 1.6 10*3/uL Normal 1.0-4.3 [facility] Comment on above: Performed By: #### L [id number] ####Cuff Cutter: NICOLE BOWERS ([id number])[facility] YEH RITTMAN (SWRLAB)[address] [place] [address] Lymphocytes/100 WBC (Bld) 19.5 % Normal 15.0-45.0 [facility] Comment on above: Performed By: #### L [id number] ####Cuff Cutter: NICOLE BOWERS ([id number])[facility] YEH RITTMAN (SWRLAB)[address] [place] [address] MCH (RBC) [Entitic mass] 31.4 pg Normal 26.0-34.0 [facility] Comment on above: Performed By: #### L [id number] ####Cuff Cutter: NICOLE BOWERS ([id number])[facility] YEH RITTMAN (SWRLAB)[address] [place] [address] MCHC 33.6 % Normal 30.5-36.0 [facility] Comment on above: Performed By: #### L [id number] ####Cuff Cutter: NICOLE BOWERS ([id number])[facility] YEH RITTMAN (SWRLAB)[address] [place] [address] MCV (RBC) [Entitic vol] 93.5 fL Normal 77.0-99.0 [facility] Comment on above: Performed By: #### L [id number] ####Cuff Cutter: NICOLE BOWERS ([id number])[facility] KAMALJIT RITTMAN (SWRLAB)[address] [place] [address] [place] Monocytes (Bld) [#/Vol] 0.6 10*3/uL Normal 0.0-0.9 [facility] Comment on above: Performed By: #### L [id number] ####Cuff Cutter: NICOLE BOWERS ([id number])[facility] KAMALJIT RITTMAN (SWRLAB)[address] [place] [address] [place] Monocytes/100 WBC (Bld) 7.6 % Normal 5.0-13.0 [facility] Comment on above: Performed By: #### L [id number] ####Cuff Cutter: NICOLE BOWERS ([id number])[facility] [employer]ALJ[employer] RITTMAN (SWRLAB)[address] [place] [address] [place] NEUTROPHILS ABSOLUTE 5.8 10*3/uL Normal 1.8-7.5 [facility] Comment on above: Performed By: #### L [id number] ####Cuff Cutter: NICOLE BOWERS ([id number])[facility] YEH RITTMAN (SWRLAB)[address] [place] [address] [place] Neutrophils/100 WBC (Bld) 72.1 % Normal 38.0-82.0 [facility] Comment on above: Performed By: #### L [id number] ####Cuff Cutter: NICOLE BOWERS ([id number])[facility] YEH RITTMAN (SWRLAB)[address] [place] [address] [place] NRBC 0.0 /100 WBCs Normal 0.0-2.0 [facility] Comment on above: Performed By: #### L [id number] ####Cuff Cutter: NICOLE BOWERS ([id number])[facility] RODRIGESKAMALJIT RITTMAN (SWRLAB)[address] [place] [address] Platelet mean volume (Bld) [Entitic vol] 9.0 fL Normal 9.0-12.7 [facility] Comment on above: Result Comment: MPV is a calculated measurement using platelet volume ratio Performed By: #### L [id number] ####Cuff Cutter: NICOLE BOWERS ([id number])[facility] YE[facility] [employer] (SWRLAB)[address] [place] [address] [place] Platelets (Bld) [#/Vol] 277 10*3/uL Normal 140-440 [facility] Comment on above: Performed By: #### L [id number] ####Cuff Cutter: NICOLE BOWERS ([id number])[facility] YE[facility] [employer] (SWRLAB)[address] [place] [address] RBC (Bld) [#/Vol] 3.85 10*6/uL Low 4.40-5.90 [facility] Comment on above: Performed By: #### L [id number] ####Cuff Cutter: NICOLE BOWERS ([id number])[facility] YE[facility] [employer]TM[employer] (SWRLAB)[address] [place] [address] WBC (Bld) [#/Vol] 8.0 10*3/uL Normal 3.6-10.7 [facility] Comment on above: Performed By: #### L [id number] ####Cuff Cutter: NICOLE BOWERS ([id number])[facility] YEH RITTMAN (SWRLAB)[address] [place] [address] [place] CHEST ANGIOGRAM W AND/OR WO IV CONTRASTon 04-28-2024 CT CHEST ANGIOGRAM W AND/OR WO IV CONTRAST Normal [facility] CTA Chest vessels WO and W c ontrast Blossom 04-28-[address] scan of the chest for evidence of acute pulmonary embolism. 2. Cardiomegaly with pulmonary vascular congestion and trace bilateral pleural effusions with mild atelectatic changes right lung base Report Dictated on Electronically Signed By: Jose Raul Petersen MD Electronically Signed Date/Time: 04/28/2024 5:28 AM [facility] Patient Name: CARLO MEDINA : 1980 Exam Date/Time: 04/28/2024 04:58 Procedure: CT CHEST ANGIOGRAM W AND/OR WO IV CONTRAST Ordering Provider: LE DOUGLAS Reason For Exam: chest pain, positive dimer. RLL rhonchi. PNA vs PE. Reasons for examination: Chest pain/ shortness of breath. CT scan of the chest were performed with bolus contrast and high resolution scans for CT pulmonary angiographic study, with images post-processed by myself on [employer] workstation, with 3D - volume rendered CT and MPR angiographic images reconstructed. Dose reduction was employed with automatic exposure control The heart size is enlarged, and there are no pericardial effusions. There are congestive changes in the pulmonary vasculature. The thoracic aorta is unremarkable. CT pulmonary angiographic examination is a high quality study, which demonstrates no evidence of acute pulmonary embolism. The right side of the heart, pulmonary outflow tract, right and left main, lobar, and larger segmental pulmonary arteries all appear clear. Note that the technique is limited for detection of small, subsegmental, peripheral emboli, but none are seen. [facility] Jose Raul Petersen MD - 04/28/2024 Patient Name: [facility] 1980 [id number] Exam Date/Time: 04/28/2024 04:58 Procedure: CT CHEST ANGIOGRAM W AND/OR WO IV CONTRAST Ordering Provider: LE DOUGLAS Reason For Exam: chest pain, positive dimer. RLL rhonchi. PNA vs PE. Reasons for examination: Chest pain/ shortness of breath. CT scan of the chest were performed with bolus contrast and high resolution scans for CT pulmonary angiographic study, with images post-processed by myself on [employer] workstation, with 3D - volume rendered CT and MPR angiographic images reconstructed. Dose reduction was employed with automatic exposure control The heart size is enlarged, and there are no pericardial effusions. There are congestive changes in the pulmonary vasculature. The thoracic aorta is unremarkable. CT pulmonary angiographic examination is a high quality study, which demonstrates no evidence of acute pulmonary embolism. The right side of the heart, pulmonary outflow tract, right and left main, lobar, and larger segmental pulmonary arteries all appear clear. Note that the technique is limited for detection of small, subsegmental, peripheral emboli, but none are seen. IMPRESSION: 1.Negative CT scan of the chest for evidence of acute pulmonary embolism. 2. Cardiomegaly with pulmonary vascular congestion and trace bilateral pleural effusions with mild atelectatic changes right lung base Report Dictated on Electronically Signed By: Jose Raul Petersen MD Electronically Signed Date/Time: 04/28/2024 5:28 AM EDT [facility] Radiology Study observation (narrative) [facility] Consulton 04-28-2024 Consult Normal [facility] Consult Normal [facility] D-DIMER,QUANTITATIVEon 04-28 D-DIMER, INNOVANCE 1.97 mg/L High <0.50 [facility] Comment on above: Result Comment: ALEJANDRO Tatum COMMENTS:Innovance D-Dimer values of <0.50 mg/L FEU can be used in combination with a pre-test probability model (e.g. Well's) to exclude pulmonary embolism (PE) disease, as well as an aid in the diagnosis of deep vein thrombosis (DVT). Performed By: #### L [id number] ####Cuff Cutter: NICOLE BOWERS ([phone])[facility] [place] [address] ECG 12-LEADon 04-28-2024 ECG 12-LEAD Normal [facility] ED Nursing Noteon 04-28-[address] [facility] CDU. Hand off report given. Normal [facility] ED Nursing Note Phoned [facility] ED. No answer. Normal [facility] ED Nursing Note Patient signed transfer papers and instructions given to patient and significant other. Patient traveling by private vehicle. IV wrapped in coban. Normal [facility] ED Nursing Note Normal [facility] ED Provider Noteon ED Provider Note Normal [facility] Fibrin D-dimer FEU (PPP) [Ma ss/Vol]on 04-28-2024 Interpretation and review of laboratory results Abnormal [facility] Innovance D-Dimer values of <0.50 mg/L FEU can be used in combination with a pre-test probability model (e.g. Well's) to exclude pulmonary embolism (PE) disease, as well as an aid in the diagnosis of deep vein thrombosis (DVT). [facility] GROUP A STREP SCREEN BY PCRo n 04-28-2024 GROUP A STREP SCREEN BY PCR GROUP A STREP SCREEN BY PCR Reference Not Detected Not Detected ORDER COMMENTS: Methodology: real-time PCR Normal [facility] Comment on above: Performed By: #### L [id number] ####Cuff Cutter: NICOLE BOWERS ([id number])[facility] (SWRLAB)[address] [place] [address] LEGIONELLA AND STREPTOCOCCUS URINE ANTIGENon 04-28-2024 LEGIONELLA AND STREPTOCOCCUS URINE ANTIGEN Normal [facility] Comment on above: Performed By: #### L [id number] ####Cuff Cutter: NICOLE BOWERS ([id number])[facility] ([facility])[address] [place] [address] Laboratory - Chemistry and C hemistry - challengeon 04-28-2024 Procalcitonin [Mass/Vol] 0.04 ng/mL 0.00 - 0.09 ng/mL [facility] Troponin I.cardiac [Mass/Vol] 0.032 ng/mL NINF - 0.034 ng/mL [facility] Troponin I.cardiac [Mass/Vol] 0.025 ng/mL [facility] - 0.034 ng/mL [facility] Troponin I.cardiac [Mass/Vol] 0.02 ng/mL NINF - 0.034 ng/mL [facility] Laboratory - Coagulationon 1 Fibrin D-dimer FEU (PPP) [Mass/Vol] 1.97 mg/L High NINF - 0.50 mg/L [facility] Laboratory - Microbiology an d Antimicrobial susceptibilityon 04-28-2024 Bacteria identified Aer cx Nom (Lower resp) Culture canceled due to poor specimen quality. Recollect if clinically indicated. [facility] FLUAV RNA DEENA+probe Ql (Resp) Not detected Not Detected [facility] FLUBV RNA DEENA+probe Ql (Resp) Not detected Not Detected [facility] RSV RNA DEENA+probe Ql (Resp) Not detected Not Detected [facility] SARS-CoV-2 (COVID-19) RNA DEENA+probe Ql (Resp) Not detected Not Detected [facility] SARS-CoV-2 (COVID-19) RNA DEENA+probe Ql (Unsp spec) Methodology: real-time, RT-PCR The SARS-CoV-2, Flu A/B, and RSV Combo assay is intended for in vitro diagnostic use under the FDA Emergency Use Authorization (EUA). This test has not been FDA cleared or approved. In compliance with this authorization, please visit www.fda.gov/media/625 586/download or www.fda.gov/media/991 749/download to access the applicable information sheets. [facility] NT PRO BNPon 04-28-2024 Natriuretic peptide B (Bld) [Mass/Vol] 24965 pg/mL High <20-100 [facility] Comment on above: Performed By: #### L AB15, [id number], [id number] ####Cuff Cutter: NICOLE BOWERS ([id number])[facility] (SWRL[facility])[address] [place] [address] Natriuretic peptide B [Mass/ Vol]on 04-28-2024 Interpretation and review of laboratory results Abnormal [facility] Natriuretic peptide B (Bld) [Mass/Vol] 53773 pg/mL High <20 - 100 [facility] No Panel InformationOrdered By: Tracey Cruz on 04-28-2024 Interpretation and review of laboratory results Normal [facility] Legionella pneumophila Ag Not detected Not Detected [facility] Streptococcus pneumoniae Ag Not detected Not Detected [facility] Methodology: Lateral flow enzyme immunoassay This assay is approved for detection of antigens to Streptococcus pneumoniae and Legionella pneumophila serogroup 1; however, other L. pneumophila serogroups may also be detected. [facility] No Panel Informationon 04-28 [facility] P [place] 60 degrees [facility] IN Interval 151 ms [facility] QRS [place] -18 degrees [facility] QRSD Interval 97 ms [facility] QT Interval 365 ms [facility] QTC Interval 455 ms [facility] T Wave [place] 189 degrees [facility] EKG shows NSR, LAD, normal IN QRS and QTC intervals. LVH. ST depressions in I, AVL, II, III, AVF, V3-V6. No STEMI. No SVT. Previous EKG is unchanged. All ST segment changes are old. Electronically Signed On 04-28-2024 03:05:52 EDT by Juan Carlos Barros MD - 04/28/2024 IMPRESSION: EKG shows NSR, LAD, normal IN QRS and QTC intervals. LVH. ST depressions in I, AVL, II, III, AVF, V3-V6. No STEMI. No SVT. Previous EKG is unchanged. All ST segment changes are old. Electronically Signed On 04-28-2024 03:05:52 EDT by Juan Carlos Le [facility] Nursing Noteon 04-28-2024 Nursing Note Discharge instructions given to and reviewed in detail with patient and his significant other. Patient verbalized understanding of all discharge instructions, all questions answered at the best of my ability at this time. Normal [facility] Nursing Note Notified Karrie JAMES CD U patient reported 2/10 chest pain, STAT EKG obtained. Karrie read EKG and stated it's okay, chronic findings. Administer nitroglycerin prn and morphine prn. Normal [facility] PROCALCITONIN TESTon 024 PROCALCITONIN 0.04 ng/mL Normal 0.00-0.09 [facility] Comment on above: Result Comment: ALEJANDRO Tatum COMMENTS:PCT <0.50 = Low risk of severe sepsis and/or septic shock.PCT >2.00 = High risk of severe sepsis and/or septic shock. Performed By: #### L [id number] ####Cuff Cutter: NICOLE BOWERS ([id number])[address] Procalcitonin [Mass/Vol]on Interpretation and review of laboratory results Normal [facility] PCT <0.50 = Low risk of severe sepsis and/or septic shock. PCT >2.00 = High risk of severe sepsis and/or septic shock. [facility] RESPIRATORY CULTURE AND STAI Non 04-28-2024 RESPIRATORY CULTURE AND STAIN Normal [facility] Comment on above: Performed By: #### L [id number] ####Cuff Cutter: NICOLE BOWERS ([id number])[address] RESPIRATORY PATHOGENS PANEL BY PCRon 04-28-2024 RESPIRATORY PATHOGENS PANEL BY PCR Normal [facility] Comment on above: Performed By: #### L [id number] ####Cuff Cutter: NICOLE BOWERS ([id number])[facility] (SACLAB)[address] Respiratory pathogens DNA an d RNA panel DEENA+non-probe (Nph)on 04-28-2024 Adenovirus Not detected Not Detected [facility] B. pertussis DNA DEENA+probe Ql (Unsp spec) Not detected Not Detected [facility] Bordetella parapertussis Not detected Not Detected [facility] Chlamydia pneumoniae Not detected Not Detected [facility] Coronavirus 229E Not detected Not Detected [facility] Coronavirus HKU1 Not detected Not Detected [facility] Coronavirus NL63 Not detected Not Detected [facility] Coronavirus OC43 Not detected Not Detected [facility] FLUAV RNA DEENA+non-probe Ql (Nph) Not detected Not Detected [facility] FLUBV RNA DEENA+non-probe Ql (Nph) Not detected Not Detected [facility] Human Metapneumovirus Not detected Not Detected [facility] Human Rhinovirus/Enterovirus Not detected Not Detected [facility] Interpretation and review of laboratory results Normal [facility] Mycoplasma pneumoniae Not detected Not Detected [facility] Parainfluenza 1 Not detected Not Detected [facility] Parainfluenza 2 Not detected Not Detected [facility] Parainfluenza 3 Not detected Not Detected [facility] Parainfluenza 4 Not detected Not Detected [facility] Respiratory Syncytial Virus Not detected Not Detected [facility] SARS-CoV-2 (COVID-19) RNA DEENA+non-probe Ql (Nph) Not detected Not Detected [facility] Methodology: Multiplex PCR [facility] S. pyogenes DNA DEENA+probe No m (Unsp spec)on 04-28-2024 Group A Strep Screen Not detected Not Detected [facility] Interpretation and review of laboratory results Normal [facility] Methodology: real-time PCR [facility] SARS-COV-2, FLU A/B, AND RSV COMBOon 04-28-2024 SARS-CoV-2 (COVID-19) RNA DEENA+probe Ql (Unsp spec) Normal [facility] Comment on above: Performed By: #### L [id number] ####Cuff Cutter: NICOLE BOWERS ([id number])[facility] (RLAB)[address] SARS-CoV-2, Flu A/B, and RSV Comboon 04-28-2024 Interpretation and review of laboratory results Normal [facility] TROPONIN I, HIGH SENSITIVITY on 04-28-2024 Troponin I.cardiac [Mass/Vol] 0.032 ng/mL Normal <0.034 [facility] Comment on above: Result Comment: ALEJANDRO R COMMENTS:Moderately Hemolyzed. Interpret TROPONIN I with caution.Patients with high levels of Biotin oral intake (ie >5 mg/day) may have falsely decreased Troponin levels. Performed By: #### L [id number] ####Cuff Cutter: NICOLE BOWERS ([id number])[facility] ([facility])[address] [place] [address] Troponin I.cardiac [Mass/Vol] 0.025 ng/mL Normal <0.034 [facility] Comment on above: Result Comment: ALEJANDRO R COMMENTS:Patients with high levels of Biotin oral intake (ie >5 mg/day) may have falsely decreased Troponin levels. Performed By: #### L [id number] ####Cuff Cutter: NICOLE BOWERS ([id number])[facility] [place] (SWRLAB)[address] [place] [address] [place] TROPONIN, WITH SERIAL REFLEX on 04-28-2024 Troponin I.cardiac [Mass/Vol] 0.020 ng/mL Normal <0.034 [facility] Comment on above: Result Comment: ALEJANDRO R COMMENTS:Patients with high levels of Biotin oral intake (ie >5 mg/day) may have falsely decreased Troponin levels. Performed By: #### L AB15, [id number], [id number] ####Cuff Cutter: NICOLE BOWERS ([id number])[facility] (SWRLAB)[address] [place] [address] [place] Troponin I.cardiac [Mass/Vol ]on 04-28-2024 Interpretation and review of laboratory results Normal [facility] Moderately Hemolyzed . Interpret TROPONIN I with caution. Patients with high levels of Biotin oral intake (ie >5 mg/day) may have falsely decreased Troponin levels. [facility] Interpretation and review of laboratory results Normal [facility] Patients with high levels of Biotin oral intake (ie >5 mg/day) may have falsely decreased Troponin levels. [facility] Interpretation and review of laboratory results Normal [facility] Patients with high levels of Biotin oral intake (ie >5 mg/day) may have falsely decreased Troponin levels. [facility] Vital signson 04-28-2024 Heart rate 93 /min bpm [facility] XR Chest 2 Viewson Patient Name: CARLO MEDINA : 1980 Exam Date/Time: 04/28/2024 03:52 Procedure: XR CHEST 2 VIEWS Ordering Provider: LE DOUGLAS Reason For Exam: CP. ACS vs pneumonia. HISTORY: Chest pain Frontal view the chest shows cardiomegaly with pulmonary vascular prominence with mild atelectatic changes lung bases right greater than left. Report Dictated on Electronically Signed By: Jose Raul Petersen MD Electronically Signed Date/Time: 04/28/2024 3:53 AM EDT [facility] Jose Raul Petersen MD - 04/28/2024 Patient Name: CARLO MEDINA : 1980 Exam Date/Time: 04/28/2024 03:52 Procedure: XR CHEST 2 VIEWS Ordering Provider: LE DOUGLAS Reason For Exam: CP. ACS vs pneumonia. HISTORY: Chest pain Frontal view the chest shows cardiomegaly with pulmonary vascular prominence with mild atelectatic changes lung bases right greater than left. Report Dictated on Electronically Signed By: Jose Raul Petersen MD Electronically Signed Date/Time: 04/28/2024 3:53 AM EDT [facility] Radiology Study observation (narrative) [facility] XR Chest 2 ViewsOrdered By: Jose Raul Petersen on 04-28-2024 [facility] Work Phone: 36on 04-27-2024 36 Normal [facility] 36on 04-14-2024 36 LMOM requesting return call, gave [facility] phone number also Normal [facility] 36on 03-31-2024 36 Lmom return call, if no insurance yet may be seen at [facility] with Dr Conklin. Will give number [phone] if needed [place] [address]on 03-16-2024 36 Will call back Normal [facility] 36on 03-08-2024 36 [facility] reached out to schedule Hospital Follow up appointment. [facility] offered assistance with financial assistance program until his Medicaid was active. Pt declined, stating he wants to wait until his Medicaid is active before scheduling a follow up. Normal [facility] 36 Normal [facility] BASIC METABOLIC PANELon Anion gap [Moles/Vol] 12 mmol/L Normal 3-13 [facility] Comment on above: Performed By: #### L AB15, [id number] ####Cuff Cutter: LESLEE HERNANDEZ ([id number])[facility] (SBHLAB)[address] Calcium [Mass/Vol] 9.4 mg/dL Normal 8.4-10.4 [facility] Comment on above: Performed By: #### L AB15, [id number] ####Cuff Cutter: LESLEE HERNANDEZ ([id number])[facility] (SBHLAB)[address] [place] [address] [place] Chloride [Moles/Vol] 104 mmol/L Normal 98-107 [facility] Comment on above: Performed By: #### L AB15, [id number] ####Cuff Cutter: LESLEE HERNANDEZ ([id number])[facility] (SBHLAB)[address] [place] [address] [place] CO2 [Moles/Vol] 22 mmol/L Normal 22-30 [facility] Comment on above: Performed By: #### L AB15, [id number] ####Cuff Cutter: LESLEE HERNANDEZ ([id number])[facility] [place] (SBHLAB)[address] [place] [address] [place] Creatinine [Mass/Vol] 1.74 mg/dL High 0.66-1.25 [facility] Comment on above: Performed By: #### L AB15, [id number] ####Cuff Cutter: LESLEE HERNANDEZ ([id number])[facility]ILL[facility]on BARBREHOBOTH MCK[facility] SERVICESMarguerite (SBHLAB)[address] [place] [address] [place] GLOMERULAR FILTRATION RATE ML/MIN/1.73 SQ M.PREDICTED 48.4 mL/min/1.73m*2 Low >60.0 [facility] Comment on above: Result Comment: Calc ulation based on the Chronic Kidney Disease Epidemiology Collaboration (CKD-EPI) equation refit without adjustment for race Performed By: #### L AB15, [id number] ####Cuff Cutter: LESLEE HERNANDEZ ([id number])[facility]ILL[facility] [place] (SBHLAB)[address] [place] [address] [place] Glucose [Mass/Vol] 113 mg/dL High 70-100 [facility] Comment on above: Performed By: #### L AB15, [id number] ####Cuff Cutter: LESLEE HERNANDEZ ([id number])[facility] (SBHLAB)[address] [place] [address] [place] Potassium [Moles/Vol] 3.5 mmol/L Normal 3.5-5.1 [facility] Comment on above: Performed By: #### L AB15, [id number] ####Cuff Cutter: LESLEE HERNANDEZ ([id number])[facility]ILL[facility]BREHOB[facility] M[facility] SERVICESN (SBHLAB)[address] [place] [address] [place] Sodium [Moles/Vol] 138 mmol/L Normal 135-145 [facility] Comment on above: Performed By: #### L AB15, [id number] ####Cuff Cutter: LESLEE HERNANDEZ ([id number])[facility]ILL[facility] (SBHLAB)[address] [place] [address] [place] Urea nitrogen [Mass/Vol] 27 mg/dL High 9-20 [facility] Comment on above: Performed By: #### L AB15, [id number] ####Cuff Cutter: LESLEE HERNANDEZ ([id number])[facility]ILL[facility] [place] [facility])[address] [place] [address] Basic metabolic 1998 panelon 03-07-2024 Anion gap [Moles/Vol] 12 mmol/L 3 - 13 mmol/L [facility] Calcium [Mass/Vol] 9.4 mg/dL 8.4 - 10. 4 mg/dL [facility] Chloride [Moles/Vol] 104 mmol/L 98 - 10 7 mmol/L [facility] CO2 [Moles/Vol] 22 mmol/L 22 - 30 mmol/L [facility] Creatinine [Mass/Vol] 1.74 mg/dL High 0.66 - 1.25 mg/dL [facility] GFR/1.73 sq M.predicted (S/P/Bld) [Vol rate/Area] 48.4 mL/min Low - PINF [facility] Comment on above: Calculation based on the Chronic Kidney Disease Epidemiology Collaboration (CKD-EPI) equation refit without adjustment for race Glucose [Mass/Vol] 113 mg/dL High 70 - 100 mg/dL [facility] Interpretation and review of laboratory results Abnormal [facility] Potassium [Moles/Vol] 3.5 mmol/L 3.5 - 5.1 mmol/L [facility] Sodium [Moles/Vol] 138 mmol/L 135 - 145 mmol/L [facility] Urea nitrogen [Mass/Vol] 27 mg/dL High 9 - 20 mg/dL [facility] CBC (HEMOGRAM)on 03-07-2024 Erythrocyte distribution width (RBC) [Ratio] 11.6 % Normal 11.5-15.0 [facility] Comment on above: Performed By: #### L [id number] ####Cuff Cutter: LESLEE HERNANDEZ ([id number])[facility] [place] ([facility])[address] [place] [address] Hematocrit (Bld) [Volume fraction] 45.5 % Normal 40.0-52.0 [facility] Comment on above: Performed By: #### L [id number] ####Cuff Cutter: LESLEE HERNANDEZ ([id number])[facility] [place] (SBHLAB)[address] Hemoglobin (Bld) [Mass/Vol] 15.5 g/dL Normal 13.0-18.0 [facility] Comment on above: Performed By: #### L AB294 ####Cuff Cutter: LESLEE HERNANDEZ ([id number])[facility] (SBHLAB)[address] MCH (RBC) [Entitic mass] 31.5 pg Normal 26.0-34.0 [facility] Comment on above: Performed By: #### L AB294 ####Cuff Cutter: LESLEE HERNANDEZ ([id number])[facility] ([facility])[address] MCHC 34.1 % Normal 30.5-36.0 [facility] Comment on above: Performed By: #### L AB294 ####Cuff Cutter: LESLEE HERNANDEZ ([id number])[facility] (SBHLAB)[address] MCV (RBC) [Entitic vol] 92.5 fL Normal 77.0-99.0 [facility] Comment on above: Performed By: #### L AB294 ####Cuff Cutter: LESLEE HERNANDEZ ([id number])[facility] ([facility])[address] Platelet mean volume (Bld) [Entitic vol] 9.0 fL Normal 9.0-12.7 [facility] Comment on above: Performed By: #### L AB294 ####Cuff Cutter: LESLEE HERNANDEZ ([id number])[facility] (SBHLAB)[address] Platelets (Bld) [#/Vol] 331 10*3/uL Normal 140-440 [facility] Comment on above: Performed By: #### L AB294 ####Cuff Cutter: LESLEE HERNANDEZ ([id number])[facility] (SBHLAB)[address] RBC (Bld) [#/Vol] 4.92 10*6/uL Normal 4.40-5.90 [facility] Comment on above: Performed By: #### L AB294 ####Cuff Cutter: LESLEE HERNANDEZ ([id number])[facility]Key[facility] KNOTTREHOB[facility] MCK[facility] C[facility] SERVICESN (SBHLAB)[address] WBC (Bld) [#/Vol] 4.4 10*3/uL Normal 3.6-10.7 [facility] Comment on above: Performed By: #### L [id number] ####Cuff Cutter: LESLEE HERNANDEZ ([id number])[facility] LELOREHOBOTH MCK[facility] CH[facility]ALTH CARE SERVICESMarguerite (SBHLAB)[address] CBC panel Auto (Bld)Ordered By: Roberto Puckett on 03-07-2024 Erythrocyte distribution width (RBC) [Ratio] 11.6 % 11.5 - 15.0 % [facility] Hematocrit (Bld) [Volume fraction] 45.5 % 40.0 - 52.0 % [facility] Hemoglobin (Bld) [Mass/Vol] 15.5 g/dL 13.0 - 18.0 g/dL [facility] Interpretation and review of laboratory results Normal [facility] MCH (RBC) [Entitic mass] 31.5 pg 26.0 - 34.0 pg [facility] MCHC (RBC) [Mass/Vol] 34.1 % 30.5 - 36.0 % [facility] MCV (RBC) [Entitic vol] 92.5 fL 77.0 - 99.0 fL [facility] Platelet mean volume (Bld) [Entitic vol] 9.0 fL 9.0 - 12.7 fL [facility] Platelets (Bld) [#/Vol] 331 10*3/uL 140 - 440 10*3/uL [facility] RBC (Bld) [#/Vol] 4.92 10*6/uL 4.40 - 5.9 0 10*6/uL [facility] WBC (Bld) [#/Vol] 4.4 10*3/uL 3.6 - 10.7 10*3/uL [facility] Consulton 03-07-2024 Consult Normal [facility] ECG 12-LEADon 03-07-2024 ECG 12-LEAD IMPRESSION: Sinus rhythm Probable left atrial enlargement LVH with secondary repolarization abnormality Electronically Signed On 03-07-2024 09:21:22 EDT by Ming Nayak Normal [facility] IDNon 03-07-2024 IDN The patient is Moderately Stable - Low risk of patient condition declining or worsening The patient's goals for the shift include rest The clinical goals for the shift include comfort Normal [facility] Laboratory - Chemistry and C hemistry - challengeon 03-07-2024 Magnesium [Mass/Vol] 2.1 mg/dL 1.6 - 2 .3 mg/dL [facility] MAGNESIUMon 03-07-2024 Magnesium [Mass/Vol] 2.1 mg/dL Normal 1.6-2.3 [facility] Comment on above: Performed By: #### L AB15, [id number] ####Cuff Cutter: LESLEE HERNANDEZ ([id number])[facility] [place] ([facility])[address] [place] [address] Magnesium [Mass/Vol]on 03-07 Interpretation and review of laboratory results Normal [facility] Panel InformationOrdered By: Ming Nayak on 03-07-2024 P [place] 65 degrees [facility] Work Phone: [place] Interval 140 ms [facility] Work [facility]: QRS [place] -11 degrees [facility] Work [facility]: QRSD Interval 104 ms [facility] Work Phone: QT Interval 365 ms [facility] Work Phone: QTC Interval 465 ms [facility] Work Phone: T Wave [place] 139 degrees [facility] Work [facility]: [facility] Work Phone: No Panel Informationon 03-07 Sinus rhythm Probable left atrial enlargement LVH with secondary repolarization abnormality Electronically Signed On 03-07-2024 09:21:22 EDT by Ming Nayak CV Ming Palacios MD - 03/07/2024 IMPRESSION: Sinus rhythm Probable left atrial enlargement LVH with secondary repolarization abnormality Electronically Signed On 03-07-2024 09:21:22 EDT by Ming Nayak [facility] Progress Noteon 03-07-2024 Progress Note Normal [facility] Vital signsOrdered By: Nilsa Nayak on 03-07-2024 Heart rate 98 /min bpm [facility] Work Phone: BASIC METABOLIC PANELon Anion gap [Moles/Vol] 10 mmol/L Normal 3-13 [facility] Comment on above: Performed By: #### L AB15, [id number] ####Cuff Cutter: LESLEE HERNANDEZ ([id number])[facility] (SBHLAB)[address] Calcium [Mass/Vol] 9.6 mg/dL Normal 8.4-10.4 [facility] Comment on above: Performed By: #### L AB15, [id number] ####Cuff Cutter: LESLEE HERNANDEZ ([id number])[facility] [place] (SBHLAB)[address] Chloride [Moles/Vol] 102 mmol/L Normal 98-107 [facility] Comment on above: Performed By: #### L AB15, [id number] ####Cuff Cutter: LESLEE HERNANDEZ ([id number])[facility] [place] (SBHLAB)[address] [place] [address] [place] CO2 [Moles/Vol] 28 mmol/L Normal 22-30 [facility] Comment on above: Performed By: #### L AB15, [id number] ####Cuff Cutter: LESLEE HERNANDEZ ([id number])[facility] (SBHLAB)[address] Creatinine [Mass/Vol] 1.71 mg/dL High 0.66-1.25 [facility] Comment on above: Performed By: #### L AB15, [id number] ####Cuff Cutter: LESLEE HERNANDEZ ([id number])[facility] (SBHLAB)[address] GLOMERULAR FILTRATION RATE ML/MIN/1.73 SQ M.PREDICTED 49.4 mL/min/1.73m*2 Low >60.0 [facility] Comment on above: Result Comment: Calc ulation based on the Chronic Kidney Disease Epidemiology Collaboration (CKD-EPI) equation refit without adjustment for race Performed By: #### L AB15, [id number] ####Cuff Cutter: LESLEE HERNANDEZ ([id number])[facility] [place] (SBHLAB)[address] Glucose [Mass/Vol] 102 mg/dL High 70-100 [facility] Comment on above: Performed By: #### L AB15, [id number] ####Cuff Cutter: LESLEE HERNANDEZ ([id number])[facility] (SBHLAB)[address] Potassium [Moles/Vol] 3.8 mmol/L Normal 3.5-5.1 [facility] Comment on above: Performed By: #### L AB15, [id number] ####Cuff Cutter: LESLEE HERNANDEZ ([id number])[facility] (SBHLAB)[address] Sodium [Moles/Vol] 141 mmol/L Normal 135-145 [facility] Comment on above: Performed By: #### L AB15, [id number] ####Cuff Cutter: LESLEE HERNANDEZ ([id number])[facility] BARBREHOBOTH MCK[facility]LEY CH[facility]ALTH CARE SERVICESN (SBHLAB)[address] [place] [address] [place] Urea nitrogen [Mass/Vol] 22 mg/dL High 9-20 [facility] Comment on above: Performed By: #### L AB15, [id number] ####Cuff Cutter: LESLEE HERNANDEZ ([id number])[facility] (SBHLAB)[address] Basic metabolic 1998 panelon 03-06-2024 Anion gap [Moles/Vol] 10 mmol/L 3 - 13 mmol/L [facility] Calcium [Mass/Vol] 9.6 mg/dL 8.4 - 10. 4 mg/dL [facility] Chloride [Moles/Vol] 102 mmol/L 98 - 10 7 mmol/L [facility] CO2 [Moles/Vol] 28 mmol/L 22 - 30 mmol/L [facility] Creatinine [Mass/Vol] 1.71 mg/dL High 0.66 - 1.25 mg/dL [facility] GFR/1.73 sq M.predicted (S/P/Bld) [Vol rate/Area] 49.4 mL/min Low - PINF [facility] Comment on above: Calculation based on the Chronic Kidney Disease Epidemiology Collaboration (CKD-EPI) equation refit without adjustment for race Glucose [Mass/Vol] 102 mg/dL High 70 - 100 mg/dL [facility] Interpretation and review of laboratory results Abnormal [facility] Potassium [Moles/Vol] 3.8 mmol/L 3.5 - 5.1 mmol/L [facility] Sodium [Moles/Vol] 141 mmol/L 135 - 145 mmol/L [facility] Urea nitrogen [Mass/Vol] 22 mg/dL High 9 - 20 mg/dL [facility] Consulton 03-06-2024 Consult Normal [facility] ED Nursing Noteon 03-06-2024 ED Nursing Note Called [facility] to inform of pt refusing to go by squad and wants to go private vehicle. Pauline Martinez RN 03/06/24 0824 Normal [facility] IDNon 03-06-2024 IDN Normal [facility] Laboratory - Chemistry and C hemistry - challengeon 03-06-2024 Magnesium [Mass/Vol] 2.2 mg/dL 1.6 - 2 .3 mg/dL [facility] TSH Qn 4.380 m[IU]/L [facility] MAGNESIUMon 03-06-2024 Magnesium [Mass/Vol] 2.2 mg/dL Normal 1.6-2.3 [facility] Comment on above: Performed By: #### L AB15, [id number] ####Cuff Cutter: LESLEE HERNANDEZ ([id number])[facility] [place] (SBAB)[address] [place] [address] Magnesium [Mass/Vol]on 03-06 Interpretation and review of laboratory results Normal [facility] No Panel Informationon 03-06 [facility] TSH Qnon 03-06-2024 Interpretation and review of laboratory results Normal [facility] BASIC METABOLIC PANELon Anion gap [Moles/Vol] 9 mmol/L Normal 3-13 [facility] Comment on above: Performed By: #### L AB15, [id number], [id number], [id number] ####Cuff Cutter: NICOLE BOWERS ([id number])[facility]FAIRHILLeKyon YEH RITTMAN (SWRLAB)[address] [place] [address] [place] Calcium [Mass/Vol] 8.9 mg/dL Normal 8.4-10.4 [facility] Comment on above: Performed By: #### L AB15, UAC203, QDA283, MKS973 ####Cuff Cutter: NICOLE BOWERS ([id number])[facility]ILL[facility] YEH RITTMAN (SWRLAB)[address] [place] [address] [place] Chloride [Moles/Vol] 104 mmol/L Normal 98-107 [facility] Comment on above: Performed By: #### L AB15, AMF711, RKQ678, ARD572 ####Cuff Cutter: NICOLE BOWERS ([id number])[facility]ILL[facility] YEH RITTMAN (SWRLAB)[address] [place] [address] [place] CO2 [Moles/Vol] 25 mmol/L Normal 22-30 [facility] Comment on above: Performed By: #### L AB15, YNX978, MII284, IHK740 ####Cuff Cutter: NICOLE BOWERS ([id number])[facility]ILL[facility] YEH RITTMAN (SWRLAB)[address] [place] [address] [place] Creatinine [Mass/Vol] 1.65 mg/dL High 0.66-1.25 [facility] Comment on above: Performed By: #### L AB15, GFM606, TGJ057, HKR559 ####Cuff Cutter: NICOLE BOWERS ([id number])[facility] YEH RITTMAN (SWRLAB)[address] [place] [address] [place] GLOMERULAR FILTRATION RATE ML/MIN/1.73 SQ M.PREDICTED 51.5 mL/min/1.73m*2 Low >60.0 [facility] Comment on above: Result Comment: Calc ulation based on the Chronic Kidney Disease Epidemiology Collaboration (CKD-EPI) equation refit without adjustment for race Performed By: #### L AB15, EKP368, YWE129, OFP016 ####Cuff Cutter: NICOLE BOWERS ([id number])[facility] YEH RITTMAN (SWRLAB)[address] [place] [address] [place] Glucose [Mass/Vol] 103 mg/dL High 70-100 [facility] Comment on above: Performed By: #### L AB15, XOP776, KSP233, BTQ291 ####Cuff Cutter: NICOLE BOWERS ([id number])[facility]ILLKeyon RODRIGESKAMALJIT RITTMAN (SWRLAB)[address] [place] [address] [place] Potassium [Moles/Vol] 3.9 mmol/L Normal 3.5-5.1 [facility] Comment on above: Performed By: #### L AB15, OQQ100, LLO977, VBC571 ####Cuff Cutter: NICOLE BOWERS ([id number])[facility]ILLKeyon RODRIGESKAMALJIT RITTMAN (SWRLAB)[address] [place] [address] [place] Sodium [Moles/Vol] 138 mmol/L Normal 135-145 [facility] Comment on above: Performed By: #### L AB15, MNE191, MAJ162, WPH988 ####Cuff Cutter: NICOLE BOWERS ([id number])[facility]ILLKeyon RODRIGESKAMALJIT RITTMAN (SWRLAB)[address] [place] [address] [place] Urea nitrogen [Mass/Vol] 22 mg/dL High 9-20 [facility] Comment on above: Performed By: #### L AB15, NNM438, ZAM129, MJU440 ####Cuff Cutter: NICOLE BOWERS ([id number])[facility]ILLA KAMALJIT RITTMAN (SWRLAB)[address] Basic metabolic 1998 panelon 03-05-2024 Anion gap [Moles/Vol] 9 mmol/L 3 - 13 mmol/L [facility] Calcium [Mass/Vol] 8.9 mg/dL 8.4 - 10. 4 mg/dL [facility] Chloride [Moles/Vol] 104 mmol/L 98 - 10 7 mmol/L [facility] CO2 [Moles/Vol] 25 mmol/L 22 - 30 mmol/L [facility] Creatinine [Mass/Vol] 1.65 mg/dL High 0.66 - 1.25 mg/dL [facility] GFR/1.73 sq M.predicted (S/P/Bld) [Vol rate/Area] 51.5 mL/min Low - PINF [facility] Comment on above: Calculation based on the Chronic Kidney Disease Epidemiology Collaboration (CKD-EPI) equation refit without adjustment for race Glucose [Mass/Vol] 103 mg/dL High 70 - 100 mg/dL [facility] Interpretation and review of laboratory results Abnormal [facility] Potassium [Moles/Vol] 3.9 mmol/L 3.5 - 5.1 mmol/L [facility] Sodium [Moles/Vol] 138 mmol/L 135 - 145 mmol/L [facility] Urea nitrogen [Mass/Vol] 22 mg/dL High 9 - 20 mg/dL [facility] CBC (HEMOGRAM)on 03-05-2024 Erythrocyte distribution width (RBC) [Ratio] 11.7 % Normal 11.5-15.0 [facility] Comment on above: Performed By: #### L AB294 ####Cuff Cutter: NICOLE BOWERS ([id number])[facility] KAMALJIT VIKKITMAN (SWRLAB)[address] [place] [address] Hematocrit (Bld) [Volume fraction] 39.2 % Low 40.0-52.0 [facility] Comment on above: Performed By: #### L AB294 ####Cuff Cutter: NICOLE BOWERS ([id number])[facility] KAMALJIT FLOREZTMAN (SWRLAB)[address] [place] [address] Hemoglobin (Bld) [Mass/Vol] 13.4 g/dL Normal 13.0-18.0 [facility] Comment on above: Performed By: #### L AB294 ####Cuff Cutter: NICOLE BOWERS ([id number])[facility] YEH RITTMAN (SWRLAB)[address] [place] [address] MCH (RBC) [Entitic mass] 31.8 pg Normal 26.0-34.0 [facility] Comment on above: Performed By: #### L AB294 ####Cuff Cutter: NICOLE BOWERS ([id number])[facility] YEH RITTMAN (SWRLAB)[address] [place] [address] MCHC 34.2 % Normal 30.5-36.0 [facility] Comment on above: Performed By: #### L AB294 ####Cuff Cutter: NICOLE BOWERS ([id number])[facility] YEH RITTMAN (SWRLAB)[address] [place] [address] MCV (RBC) [Entitic vol] 93.1 fL Normal 77.0-99.0 [facility] Comment on above: Performed By: #### L AB294 ####Cuff Cutter: NICOLE BOWERS ([id number])[facility] YEH RITTMAN (SWRLAB)[address] [place] [address] Platelet mean volume (Bld) [Entitic vol] 9.2 fL Normal 9.0-12.7 [facility] Comment on above: Result Comment: MPV is a calculated measurement using platelet volume ratio Performed By: #### L AB294 ####Cuff Cutter: NICOLE BOWERS ([id number])[facility] YEH RITTMAN (SWRLAB)[address] [place] [address] Platelets (Bld) [#/Vol] 313 10*3/uL Normal 140-440 [facility] Comment on above: Performed By: #### L AB294 ####Cuff Cutter: NICOLE BOWERS ([id number])[facility] YEH RITTMAN (SWRLAB)[address] [place] [address] RBC (Bld) [#/Vol] 4.21 10*6/uL Low 4.40-5.90 [facility] Comment on above: Performed By: #### L AB294 ####Cuff Cutter: NICOLE BOWERS ([id number])[facility]ITALKAMALJIT RITTMAN (SWRLAB)[address] [place] [address] WBC (Bld) [#/Vol] 5.5 10*3/uL Normal 3.6-10.7 [facility] Comment on above: Performed By: #### L AB294 ####Cuff Cutter: NICOLE BOWERS ([id number])[facility] HOSPITALKAMALJIT VIKKITMAN (SWRLAB)[address] [place] [address] CBC panel Auto (Bld)on 03-05 Erythrocyte distribution width (RBC) [Ratio] 11.7 % 11.5 - 15.0 % [facility] Hematocrit (Bld) [Volume fraction] 39.2 % Low 40.0 - 52.0 % [facility] Hemoglobin (Bld) [Mass/Vol] 13.4 g/dL 13.0 - 18.0 g/dL [facility] Interpretation and review of laboratory results Abnormal [facility] MCH (RBC) [Entitic mass] 31.8 pg 26.0 - 34.0 pg [facility] MCHC (RBC) [Mass/Vol] 34.2 % 30.5 - 36.0 % [facility] MCV (RBC) [Entitic vol] 93.1 fL 77.0 - 99.0 fL [facility] Platelet mean volume (Bld) [Entitic vol] 9.2 fL 9.0 - 12.7 fL [facility] Comment on above: MPV is a calculated measurement using platelet volume ratio Platelets (Bld) [#/Vol] 313 10*3/uL 140 - 440 10*3/uL [facility] RBC (Bld) [#/Vol] 4.21 10*6/uL Low 4.40 - 5.9 0 10*6/uL [facility] WBC (Bld) [#/Vol] 5.5 10*3/uL 3.6 - 10.7 10*3/uL [facility] CT CHEST ANGIOGRAM W AND/OR WO IV CONTRASTon 03-05-2024 CT CHEST ANGIOGRAM W AND/OR WO IV CONTRAST Normal [facility] CTA Chest vessels WO and W c ontrast Blossom 03-05-2024 1. No evidence of large vessel or central pulmonary emboli. 2. Findings compatible with vascular congestion and pulmonary edema, in the appropriate clinical setting, mildly increased in the interval. Differential diagnosis also includes acute infectious or inflammatory process versus nonspecific postinflammatory change or pneumonitis of uncertain etiology or chronicity. Clinical correlation and follow-up to resolution advised. 3. Small right and minimal left pleural effusions, similar. Report Dictated on Electronically Signed By: Nir Shen MD Electronically Signed Date/Time: 03/05/2024 11:53 PM EDT [facility] [employer] [facility] 1980 [id number] Exam Date/Time: 03/05/2024 23:42 Procedure: CT CHEST ANGIOGRAM W AND/OR WO IV CONTRAST Ordering Provider: TSERN NICHOLAS Reason For Exam: shortness of breath, elevated D-dimer, rule out PE CTA CHEST WITH IV CONTRAST CLINICAL INDICATION: shortness of breath, elevated D-dimer, rule out PE. TECHNIQUE: CTA of the chest with IV contrast. Multiplanar reformations. 3-D image post-processing was performed on an independent workstation. Dose reduction was employed with automated exposure control. COMPARISON: January,. FINDINGS: The main and bilateral proximal pulmonary arteries are normally opacified without apparent filling defects. Heterogeneous opacification of peripheral pulmonary arteries limits their evaluation. Mild cardiomegaly, about the same. Thoracic aorta suboptimally opacified without apparent aneurysm or pseudoaneurysm. No significant lymph node enlargement or axillary adenopathy. Lungs show increased interstitial and groundglass opacities bilaterally, mildly increased. Patchy and partially confluent opacities in the bilateral perihilar regions, right greater than left, also new or increased. Small right and minimal left pleural effusions, about the same. No discrete mass or apparent pneumothorax. Visualized upper abdomen grossly unremarkable. Degenerative change in the thoracic spine. [facility] Nir Shen MD - 03/05/2024 Patient Name: CARLO MEDINA : 1980 [facility]#: [id number] Exam Date/Time: 03/05/2024 23:42 Procedure: CT CHEST ANGIOGRAM W AND/OR WO IV CONTRAST Ordering Provider: STERN NICHOLAS Reason For Exam: shortness of breath, elevated D-dimer, rule out PE CTA CHEST WITH IV CONTRAST CLINICAL INDICATION: shortness of breath, elevated D-dimer, rule out PE. TECHNIQUE: CTA of the chest with IV contrast. Multiplanar reformations. 3-D image post-processing was performed on an independent workstation. Dose reduction was employed with automated exposure control. COMPARISON: January,. FINDINGS: The main and bilateral proximal pulmonary arteries are normally opacified without apparent filling defects. Heterogeneous opacification of peripheral pulmonary arteries limits their evaluation. Mild cardiomegaly, about the same. Thoracic aorta suboptimally opacified without apparent aneurysm or pseudoaneurysm. No significant lymph node enlargement or axillary adenopathy. Lungs show increased interstitial and groundglass opacities bilaterally, mildly increased. Patchy and partially confluent opacities in the bilateral perihilar regions, right greater than left, also new or increased. Small right and minimal left pleural effusions, about the same. No discrete mass or apparent pneumothorax. Visualized upper abdomen grossly unremarkable. Degenerative change in the thoracic spine. IMPRESSION: 1. No evidence of large vessel or central pulmonary emboli. 2. Findings compatible with vascular congestion and pulmonary edema, in the appropriate clinical setting, mildly increased in the interval. Differential diagnosis also includes acute infectious or inflammatory process versus nonspecific postinflammatory change or pneumonitis of uncertain etiology or chronicity. Clinical correlation and follow-up to resolution advised. 3. Small right and minimal left pleural effusions, similar. Report Dictated on Electronically Signed By: Nir Shen MD Electronically Signed Date/Time: 03/05/2024 11:53 PM EDT [employer] [facility] Radiology Study observation (narrative) [facility] D-DIMER,QUANTITATIVEon 03-05 D-DIMER, INNOVANCE 1.03 mg/L High <0.50 [facility] Comment on above: Result Comment: ALEJANDRO Tatum COMMENTS:[employer] D-Dimer values of <0.50 mg/L FEU can be used in combination with a pre-test probability model (e.g. Well's) to exclude pulmonary embolism (PE) disease, as well as an aid in the diagnosis of deep vein thrombosis (DVT). Performed By: #### L [id number] ####Cuff Cutter: NICOLE BOWERS ([id number])[facility]ENTERNE[facility] (SWRLAB)[address] [place] [address] ECG 12-LEADon 03-05-2024 ECG 12-LEAD IMPRESSION: Sinus tachycardia Left atrial enlargement LVH with secondary repolarization abnormality Electronically Signed On 03-05-2024 21:54:46 EDT by Shane Stern Normal [facility] ED Nursing Noteon 03-05-2024 ED Nursing Note 44 m to ED c/o sob since 7pm. Pt reports [facility]. Was d/c'd Friday with new diagnosis of CHF. Pt reports SOB improved while he was up walking. Pt arrived at 88% on rm air. Placed on 3L nc. Normal [facility] ED Nursing Note Pt removed by physician with sats maintained. Per Dr. Julien, pt is permitted to be driven by private car. IV access maintained intact in right AC with a coban wrap Marycarmen Dias RN 03/06/24 0830 Normal [facility] ED Nursing Note Normal [facility] ED Provider Noteon ED Provider Note Normal [facility] Fibrin D-dimer FEU (PPP) [Ma ss/Vol]on 03-05-2024 Interpretation and review of laboratory results Abnormal [facility] D-Dimer values of <0.50 mg/L FEU can be used in combination with a pre-test probability model (e.g. Well's) to exclude pulmonary embolism (PE) disease, as well as an aid in the diagnosis of deep vein thrombosis (DVT). [facility] - Chemistry and C hemistry - challengeon 03-05-2024 Troponin I.cardiac [Mass/Vol] 0.019 ng/mL NINF - 0.034 ng/mL [facility] Laboratory - Coagulationon 0 03-05-2024 Fibrin D-dimer FEU (PPP) [Mass/Vol] 1.03 mg/L High NINF - 0.50 mg/L [facility] - Microbiology an d Antimicrobial susceptibilityon 03-05-2024 FLUAV RNA DEENA+probe Ql (Resp) Not detected Not Detected [facility] FLUBV RNA DEENA+probe Ql (Resp) Not detected Not Detected [facility] RSV RNA DEENA+probe Ql (Resp) Not detected Not Detected [facility] SARS-CoV-2 (COVID-19) RNA DEENA+probe Ql (Resp) Not detected Not Detected [facility] SARS-CoV-2 (COVID-19) RNA DEENA+probe Ql (Unsp spec) Methodology: real-time, RT-PCR The SARS-CoV-2, Flu A/B, and RSV Combo assay is intended for in vitro diagnostic use under the FDA Emergency Use Authorization (EUA). This test has not been FDA cleared or approved. In compliance with this authorization, please visit www.fda.gov/media/480 042/download or www.fda.gov/media/545 436/download to access the applicable information sheets. [facility] NT PRO BNPon 03-05-2024 Natriuretic peptide B (Bld) [Mass/Vol] 9740 pg/mL High <20-100 [facility] Comment on above: Performed By: #### L AB15, [id number], GZS748, NFU562 ####Cuff Cutter: NICOLE BOWERS ([id number])[facility] ([facility]ENTERLAB[address] Natriuretic peptide B [Mass/ Vol]on 03-05-2024 Interpretation and review of laboratory results Abnormal [facility] Natriuretic peptide B (Bld) [Mass/Vol] 9740 pg/mL High <20 - 100 [facility] No Panel Informationon 03-05 [facility] P [place] 54 degrees [facility] IN Interval 148 ms [facility] QRS [place] -11 degrees [facility] QRSD Interval 101 ms [facility] QT Interval 339 ms [facility] QTC Interval 463 ms [facility] T Wave [place] 117 degrees [facility] Sinus tachycardia Left atrial enlargement LVH with secondary repolarization abnormality Electronically Signed On 03-05-2024 21:54:46 EDT by Shane Stern CV Shane Perry MD - 03/05/2024 IMPRESSION: Sinus tachycardia Left atrial enlargement LVH with secondary repolarization abnormality Electronically Signed On 03-05-2024 21:54:46 EDT by Shane Stern [facility] SARS-COV-2, FLU A/B, AND RSV COMBOon 03-05-2024 SARS-CoV-2 (COVID-19) RNA DEENA+probe Ql (Unsp spec) Normal [facility] Comment on above: Performed By: #### L [id number] ####Cuff Cutter: NICOLE BOWERS ([id number])[facility]ITALKAMALJIT [employer]AN (RLAB)[address] [place] [address] SARS-CoV-2, Flu A/B, and RSV Comboon 03-05-2024 Interpretation and review of laboratory results Normal [facility] THYROID STIMULATING HORMONEo n 03-05-2024 THYROID STIMULATING HORMONE 4.380 uIU/mL Normal 0.465-4.680 [facility] Comment on above: Performed By: #### L AB15, YBY824, FEZ477, YKR853 ####Cuff Cutter: NICOLE BOWERS ([id number])[facility] [employer] TherapeuticsTMAN (SWRLAB)[address] [place] [address] [place] TROPONIN Ion 03-05-2024 Troponin I.cardiac [Mass/Vol] 0.019 ng/mL Normal <0.034 [facility] Comment on above: Result Comment: ALEJANDRO R COMMENTS:Patients with high levels of Biotin oral intake (ie >5 mg/day) may have falsely decreased Troponin levels. Performed By: #### L AB15, CBZ744, LVN239, JBE948 ####Cuff Cutter: NICOLE BOWERS ([id number])[facility] [employer]TMAN (SWRLAB)[address] [place] [address] [place] Troponin I.cardiac [Mass/Vol ]on 03-05-2024 Interpretation and review of laboratory results Normal [facility] Patients with high levels of Biotin oral intake (ie >5 mg/day) may have falsely decreased Troponin levels. [facility] Vital signson 03-05-2024 Heart rate 112 /min bpm [facility] XR Chest Single viewon 03-05 1. Findings compatible with vascular congestion and interstitial edema, in the appropriate clinical setting, versus nonspecific postinflammatory change and bronchitis, with perihilar infiltrates, similar to comparison. Clinical correlation and follow-up as indicated. Report Dictated on Electronically Signed By: Nir hSen MD Electronically Signed Date/Time: 03/05/2024 10:35 PM EDT [facility] Patient Name: CARLO MEDINA : 1980 Exam Date/Time: 03/05/2024 22:20 Procedure: XR CHEST 1 VIEW Ordering Provider: STERN NICHOLAS Reason For Exam: Shortness of breath CHEST PORTABLE CLINICAL INDICATION: Shortness of breath TECHNIQUE: Portable chest x-ray(s). COMPARISON: January,. FINDINGS: Mild cardiomegaly, about the same. Lungs again show increased interstitial opacities and peribronchial thickening centrally, also similar. No other focal consolidation or apparent pneumothorax. Degenerative change again noted in the thoracic spine. [facility] Nir Shen MD - 03/05/2024 Patient Name: CARLO MEDINA : 1980 Exam Date/Time: 03/05/2024 22:20 Procedure: XR CHEST 1 VIEW Ordering Provider: STERN NICHOLAS Reason For Exam: Shortness of breath CHEST PORTABLE CLINICAL INDICATION: Shortness of breath TECHNIQUE: Portable chest x-ray(s). COMPARISON: January,. FINDINGS: Mild cardiomegaly, about the same. Lungs again show increased interstitial opacities and peribronchial thickening centrally, also similar. No other focal consolidation or apparent pneumothorax. Degenerative change again noted in the thoracic spine. IMPRESSION: 1. Findings compatible with vascular congestion and interstitial edema, in the appropriate clinical setting, versus nonspecific postinflammatory change and bronchitis, with perihilar infiltrates, similar to comparison. Clinical correlation and follow-up as indicated. Report Dictated on Electronically Signed By: Nir Shen MD Electronically Signed Date/Time: 03/05/2024 10:35 PM EDT [facility] Radiology Study observation (narrative) [facility] XR Chest Single viewOrdered By: Nir Shen on 03-05-2024 [facility] Work Phone: 36on 03-04-2024 36 Unable to contact patient X2 Normal [facility] 36on 03-02-2024 36 S: Patient admitted to: [facility] 02/28/24 B: Discharged on : 03/01/24 A: Hospital follow up call initiated to discuss any medication changes, follow up appointments and discharge instructions: Shortness of breath R: No contact x 1 at : [phone] Normal [facility] 36 Normal [facility] BASIC METABOLIC PANELon Anion gap [Moles/Vol] 7 mmol/L Normal 3-13 [facility] Comment on above: Performed By: #### L AB15 ####Cuff Cutter: LESLEE HERNANDEZ ([id number])[facility] ([facility])[address] [place] [address] Calcium [Mass/Vol] 8.7 mg/dL Normal 8.4-10.4 [facility] Comment on above: Performed By: #### L AB15 ####Cuff Cutter: LESLEE HERNANDEZ ([id number])[facility] ([facility])[address] [place] [address] [place] Chloride [Moles/Vol] 106 mmol/L Normal 98-107 [facility] Comment on above: Performed By: #### L AB15 ####Cuff Cutter: LESLEE HERNANDEZ ([id number])[facility])[address] [place] [address] [place] CO2 [Moles/Vol] 23 mmol/L Normal 22-30 [facility] Comment on above: Performed By: #### L AB15 ####Cuff Cutter: LESLEE HERNANDEZ ([id number])[facility] BARBEFRAÍNN (SBHLAB)[address] Creatinine [Mass/Vol] 1.56 mg/dL High 0.66-1.25 [facility] Comment on above: Performed By: #### L AB15 ####Cuff Cutter: LESLEE HERNANDEZ ([id number])[facility]A BARBREHOBOTH MCKINLEY CHRIST[facility] C[facility] SERVICESN (SBHLAB)[address] [place] [address] [place] GLOMERULAR FILTRATION RATE ML/MIN/1.73 SQ M.PREDICTED 55.1 mL/min/1.73m*2 Low >60.0 [facility] Comment on above: Result Comment: Calc ulation based on the Chronic Kidney Disease Epidemiology Collaboration (CKD-EPI) equation refit without adjustment for race Performed By: #### L AB15 ####Cuff Cutter: LESLEE HERNANDEZ ([id number])[facility]A BARBREHOBOTH MCKINLEY CHRISTIAN [facility]ALTH CARE SERVICESN (SBHLAB)[address] Glucose [Mass/Vol] 103 mg/dL High 70-100 [facility] Comment on above: Performed By: #### L AB15 ####Cuff Cutter: LESLEE HERNANDEZ ([id number])[facility] BARBREHOBOTH MCKINLEY CHRIST[facility]ALTH CARE SERVICESN (SBHLAB)[address] [place] [address] [place] Potassium [Moles/Vol] 3.7 mmol/L Normal 3.5-5.1 [facility] Comment on above: Performed By: #### L AB15 ####Cuff Cutter: LESLEE HERNANDEZ ([id number])[facility] BARBREHOBOTH MCKINLEY CHRI[facility]ALTH CARE SERVICESN (SBHLAB)[address] [place] [address] [place] Sodium [Moles/Vol] 136 mmol/L Normal 135-145 [facility] Comment on above: Performed By: #### L AB15 ####Cuff Cutter: LESLEE HERNANDEZ ([id number])[facility] (SBHLAB)[address] [place] [address] [place] Urea nitrogen [Mass/Vol] 22 mg/dL High 9-20 [facility] Comment on above: Performed By: #### L AB15 ####Cuff Cutter: LESLEE HERNANDEZ ([id number])[facility] LELOALLISON (SBHLAB)[address] [place] [address] Basic metabolic 1998 panelon 03-01-2024 Anion gap [Moles/Vol] 7 mmol/L 3 - 13 mmol/L [facility] Calcium [Mass/Vol] 8.7 mg/dL 8.4 - 10. 4 mg/dL [facility] Chloride [Moles/Vol] 106 mmol/L 98 - 10 7 mmol/L [facility] CO2 [Moles/Vol] 23 mmol/L 22 - 30 mmol/L [facility] Creatinine [Mass/Vol] 1.56 mg/dL High 0.66 - 1.25 mg/dL [facility] GFR/1.73 sq M.predicted (S/P/Bld) [Vol rate/Area] 55.1 mL/min Low - PINF [facility] Comment on above: Calculation based on the Chronic Kidney Disease Epidemiology Collaboration (CKD-EPI) equation refit without adjustment for race Glucose [Mass/Vol] 103 mg/dL High 70 - 100 mg/dL [facility] Interpretation and review of laboratory results Abnormal [facility] Potassium [Moles/Vol] 3.7 mmol/L 3.5 - 5.1 mmol/L [facility] Sodium [Moles/Vol] 136 mmol/L 135 - 145 mmol/L [facility] Urea nitrogen [Mass/Vol] 22 mg/dL High 9 - 20 mg/dL [facility] CBC W Auto Differential pane l (Bld)on 03-01-2024 Basophils (Bld) [#/Vol] 0.0 10*3/uL 0.0 - 0.2 10*3/uL [facility] Basophils/100 WBC (Bld) 0.4 % 0.0 - 2.0 % [facility] Eosinophils (Bld) [#/Vol] 0.1 10*3/uL 0.0 - 0.5 10*3/uL [facility] Eosinophils/100 WBC (Bld) 2.4 % 0.0 - 6.0 % [facility] Erythrocyte distribution width (RBC) [Ratio] 11.8 % 11.5 - 15.0 % [facility] Hematocrit (Bld) [Volume fraction] 40.3 % 40.0 - 52.0 % [facility] Hemoglobin (Bld) [Mass/Vol] 13.5 g/dL 13.0 - 18.0 g/dL [facility] Immature granulocytes (Bld) [#/Vol] 0.0 10*3/uL NINF - 0.1 10*3/uL [facility] Immature granulocytes/100 WBC (Bld) 0.2 % 0.0 - 2.0 % [facility] Interpretation and review of laboratory results Abnormal [facility] Lymphocytes (Bld) [#/Vol] 2.1 10*3/uL 1.0 - 4.3 10*3/uL [facility] Lymphocytes/100 WBC (Bld) 42.4 % 15.0 - 45.0 % [facility] MCH (RBC) [Entitic mass] 31.3 pg 26.0 - 34.0 pg [facility] MCHC (RBC) [Mass/Vol] 33.5 % 30.5 - 36.0 % [facility] MCV (RBC) [Entitic vol] 93.3 fL 77.0 - 99.0 fL [facility] Monocytes (Bld) [#/Vol] 0.5 10*3/uL 0.0 - 0.9 10*3/uL [facility] Monocytes/100 WBC (Bld) 10.1 % 5.0 - 13.0 % [facility] Neutrophils (Bld) [#/Vol] 2.2 10*3/uL 1.8 - 7.5 10*3/uL [facility] Neutrophils/100 WBC (Bld) 44.5 % 38.0 - 82.0 % [facility] Nucleated RBC/100 WBC (Bld) [Ratio] 0.0 % [facility] Platelet mean volume (Bld) [Entitic vol] 9.6 fL 9.0 - 12.7 fL [facility] Platelets (Bld) [#/Vol] 280 10*3/uL 140 - 440 10*3/uL [facility] RBC (Bld) [#/Vol] 4.32 10*6/uL Low 4.40 - 5.9 0 10*6/uL [facility] WBC (Bld) [#/Vol] 4.9 10*3/uL 3.6 - 10.7 10*3/uL [facility] CBC WITH AUTO DIFFERENTIALon 03-01-2024 Basophils (Bld) [#/Vol] 0.0 10*3/uL Normal 0.0-0.2 [facility] Comment on above: Performed By: #### L [id number] ####Cuff Cutter: LESLEE HERNANDEZ ([id number])[facility] (SBHLAB)[address] Basophils/100 WBC (Bld) 0.4 % Normal 0.0-2.0 [facility] Comment on above: Performed By: #### L [id number] ####Cuff Cutter: LESLEE HERNANDEZ ([id number])[facility] [place] (SBHLAB)[address] [place] [address] Eosinophils (Bld) [#/Vol] 0.1 10*3/uL Normal 0.0-0.5 [facility] Comment on above: Performed By: #### L [id number] ####Cuff Cutter: LESLEE HERNANDEZ ([id number])[facility] [place] (SBHLAB)[address] [place] [address] Eosinophils/100 WBC (Bld) 2.4 % Normal 0.0-6.0 [facility] Comment on above: Performed By: #### L [id number] ####Cuff Cutter: LESLEE HERNANDEZ ([id number])[facility] [place] (SBHLAB)[address] [place] [address] Erythrocyte distribution width (RBC) [Ratio] 11.8 % Normal 11.5-15.0 [facility] Comment on above: Performed By: #### L [id number] ####Cuff Cutter: LESLEE HERNANDEZ ([id number])[facility] [place] (SBHLAB)[address] [place] [address] Hematocrit (Bld) [Volume fraction] 40.3 % Normal 40.0-52.0 [facility] Comment on above: Performed By: #### L [id number] ####Cuff Cutter: LESLEE HERNANDEZ ([id number])[facility] [place] (SBHLAB)[address] Hemoglobin (Bld) [Mass/Vol] 13.5 g/dL Normal 13.0-18.0 [facility] Comment on above: Performed By: #### L [id number] ####Cuff Cutter: LESLEE HERNANDEZ ([id number])[facility] BARBREHOB[facility] SERVICESN (SBHLAB)[address] IMMATURE GRANS % 0.2 % Normal 0.0-2.0 [facility] Comment on above: Performed By: #### L [id number] ####Cuff Cutter: LESLEE HERNANDEZ ([id number])[facility] IMMATURE GRANS ABSOLUTE 0.0 10*3/uL Normal <0.1 [facility] Comment on above: Performed By: #### L [id number] ####Cuff Cutter: LESLEE HERNANDEZ ([id number])[facility] ([facility])[address] [place] [address] Lymphocytes (Bld) [#/Vol] 2.1 10*3/uL Normal 1.0-4.3 [facility] Comment on above: Performed By: #### L [id number] ####Cuff Cutter: LESLEE HERNANDEZ ([id number])[facility] ([facility])[address] [place] [address] Lymphocytes/100 WBC (Bld) 42.4 % Normal 15.0-45.0 [facility] Comment on above: Performed By: #### L [id number] ####Cuff Cutter: LESLEE HERNANDEZ ([id number])[facility] ([facility])[address] MCH (RBC) [Entitic mass] 31.3 pg Normal 26.0-34.0 [facility] Comment on above: Performed By: #### L [id number] ####Cuff Cutter: LESLEE HERNANDEZ ([id number])[facility] (SBHLAB)[address] MCHC 33.5 % Normal 30.5-36.0 [facility] Comment on above: Performed By: #### L [id number] ####Cuff Cutter: LESLEE TURKTYRONE ([id number])[facility] (SBHLAB)[address] MCV (RBC) [Entitic vol] 93.3 fL Normal 77.0-99.0 [facility] Comment on above: Performed By: #### L [id number] ####Cuff Cutter: LESLEE HERNANDEZ ([id number])[facility] [place] (SB[facility])[address] Monocytes (Bld) [#/Vol] 0.5 10*3/uL Normal 0.0-0.9 [facility] Comment on above: Performed By: #### L [id number] ####Cuff Cutter: LESLEE HERNNADEZ ([id number])[facility] [place] (SB[facility])[address] Monocytes/100 WBC (Bld) 10.1 % Normal 5.0-13.0 [facility] Comment on above: Performed By: #### L [id number] ####Cuff Cutter: LESLEE HERNANDEZ ([id number])[facility] (SBHLAB)[address] NEUTROPHILS ABSOLUTE 2.2 10*3/uL Normal 1.8-7.5 [facility] Comment on above: Performed By: #### L [id number] ####Cuff Cutter: LESLEE HERNANDEZ ([id number])[facility] [place] (SB[facility])[address] Neutrophils/100 WBC (Bld) 44.5 % Normal 38.0-82.0 [facility] Comment on above: Performed By: #### L [id number] ####Cuff Cutter: LESLEE HERNANDEZ ([id number])[facility] (SBHLAB)[address] NRBC 0.0 /100 WBCs Normal 0.0-2.0 [facility] Comment on above: Performed By: #### L [id number] ####Cuff Cutter: LESLEE HERNANDEZ ([id number])[facility] ([facility])[address] Platelet mean volume (Bld) [Entitic vol] 9.6 fL Normal 9.0-12.7 [facility] Comment on above: Performed By: #### L [id number] ####Cuff Cutter: LESLEE HERNANDEZ ([id number])[facility]on [place] (SBHLAB)[address] Platelets (Bld) [#/Vol] 280 10*3/uL Normal 140-440 [facility] Comment on above: Performed By: #### L [id number] ####Cuff Cutter: LESLEE HERNANDEZ ([id number])[facility] [place] (SBHLAB)[address] RBC (Bld) [#/Vol] 4.32 10*6/uL Low 4.40-5.90 [facility] Comment on above: Performed By: #### L [id number] ####Cuff Cutter: LESLEE HERNANDEZ ([phone])[facility] [place] (SBHLAB)[address] WBC (Bld) [#/Vol] 4.9 10*3/uL Normal 3.6-10.7 [facility] Comment on above: Performed By: #### L [id number] ####Cuff Cutter: LESLEE HERNANDEZ ([id number])[facility] [place] (SBHLAB)[address] [place] [address] [place] Consulton 03-01-2024 Consult Normal [facility] HEMOGLOBIN A1Con 03-01-2024 Glucose [Mass/Vol] 97 mg/dL Normal [facility] Comment on above: Performed By: #### L [id number] ####Cuff Cutter: LESLEE HERNANDEZ ([id number])[facility] [place] (SBHLAB)[address] HbA1c (Bld) [Mass fraction] 5.0 % Normal <5.7 [facility] Comment on above: Result Comment: Norm al less than 5.7%Prediabetes 5.7% to 6.4%Diabetes 6.5% or higher--HgbA1C levels may not be accurate in patients who have renal disease, received recent blood transfusions, are anemic, or who have dyshemoglobinemia. Performed By: #### L [id number] ####Cuff Cutter: LESLEE HERNANDEZ ([id number])[facility]ELOREHOB[facility]ARE SERVICESMarguerite (SBHLAB)[address] IDNon 03-01-2024 IDN Normal [facility] IDN The patient is Moderately Stable - Low risk of patient condition declining or worsening The patient's goals for the shift include rest The clinical goals for the shift include pt education Normal [facility] Laboratory - Chemistry and C hemistry - challengeon 03-01-2024 Average glucose Estimated from glycated hemoglobin (Bld) [Mass/Vol] 97 mg/dL [facility] Laboratory - Hematology and Cell countson 03-01-2024 HbA1c (Bld) [Mass fraction] 5.0 % NINF - 5.7 % [facility] Comment on above: Normal less than 5.7 % Prediabetes 5.7% to 6.4% Diabetes 6.5% or higher --HgbA1C levels may not be accurate in patients who have renal disease, received recent blood transfusions, are anemic, or who have dyshemoglobinemia. No Panel Informationon 03-01 [facility] Nursing Noteon 03-01-2024 Nursing Note Discharge instructions given to patient and questions were addressed. Encouraged patient to follow up with cardiology and new PCP scheduled with Family Medicine. Normal [facility] Progress Noteon 03-01-2024 Progress Note Normal [facility] Progress Note Normal [facility] BASIC METABOLIC PANELon Anion gap [Moles/Vol] 8 mmol/L Normal 3-13 [facility] Comment on above: Performed By: #### Pedro AB15, LAB18, [id number] ####Cuff Cutter: LESLEE HERNANDEZ ([id number])[facility] [place] (SBHLAB)[address] Calcium [Mass/Vol] 8.8 mg/dL Normal 8.4-10.4 [facility] Comment on above: Performed By: #### Pedro ABJoann, LAB18, [id number] ####Cuff Cutter: LESLEE HERNANDEZ ([id number])[facility] [place] (SBHLAB)[address] Chloride [Moles/Vol] 105 mmol/L Normal 98-107 [facility] Comment on above: Performed By: #### Pedro AB15, LAB18, [id number] ####Cuff Cutter: LESLEE HERNANDEZ ([id number])[facility] [place] (SBHLAB)[address] CO2 [Moles/Vol] 24 mmol/L Normal 22-30 [facility] Comment on above: Performed By: #### Pedro ABJoann, LAB18, [id number] ####Cuff Cutter: LESLEE HERNANDEZ ([id number])[facility] [place] (SBHLAB)[address] Creatinine [Mass/Vol] 1.58 mg/dL High 0.66-1.25 [facility] Comment on above: Performed By: #### Pedro AB15, LAB18, [id number] ####Cuff Cutter: LESLEE HERNANDEZ ([id number])[facility] KNOTTREHOB[facility] SERVICESN (SBHLAB)[address] [place] [address] [place] GLOMERULAR FILTRATION RATE ML/MIN/1.73 SQ M.PREDICTED 54.3 mL/min/1.73m*2 Low >60.0 [facility] Comment on above: Result Comment: Calc ulation based on the Chronic Kidney Disease Epidemiology Collaboration (CKD-EPI) equation refit without adjustment for race Performed By: #### Pedro AB15, LAB18, [id number] ####Cuff Cutter: LESLEE HERNANDEZ ([id number])[facility] [place] (SBHLAB)[address] Glucose [Mass/Vol] 117 mg/dL High 70-100 [facility] Comment on above: Performed By: #### L AB15, LAB18, [id number] ####Cuff Cutter: LESLEE HERNANDEZ ([id number])[facility] KNOTTREHOB[facility] SERVICESN (SBHLAB)[address] Potassium [Moles/Vol] 3.8 mmol/L Normal 3.5-5.1 [facility] Comment on above: Performed By: #### L AB15, LAB18, [id number] ####Cuff Cutter: LESLEE HERNANDEZ ([id number])[facility] KNOTTREHOB[facility] SERVICESN (SBHLAB)[address] Sodium [Moles/Vol] 136 mmol/L Normal 135-145 [facility] Comment on above: Performed By: #### L AB15, LAB18, [id number] ####Cuff Cutter: LESLEE HERNANDEZ ([id number])[facility] (SBHLAB)[address] Urea nitrogen [Mass/Vol] 19 mg/dL Normal 9-20 [facility] Comment on above: Performed By: #### L AB15, LAB18, [id number] ####Cuff Cutter: LESLEE HERNANDEZ ([id number])[facility]OREHOB[facility] SERVICESN (SBHLAB)[address] Basic metabolic 1998 panelon 02-29-2024 Anion gap [Moles/Vol] 10 mmol/L 3 - 13 mmol/L [facility] Calcium [Mass/Vol] 9.1 mg/dL 8.4 - 10. 4 mg/dL [facility] Chloride [Moles/Vol] 104 mmol/L 98 - 10 7 mmol/L [facility] CO2 [Moles/Vol] 25 mmol/L 22 - 30 mmol/L [facility] Creatinine [Mass/Vol] 1.66 mg/dL High 0.66 - 1.25 mg/dL [facility] GFR/1.73 sq M.predicted (S/P/Bld) [Vol rate/Area] 51.2 mL/min Low - PINF [facility] Comment on above: Calculation based on the Chronic Kidney Disease Epidemiology Collaboration (CKD-EPI) equation refit without adjustment for race Glucose [Mass/Vol] 118 mg/dL High 70 - 100 mg/dL [facility] Interpretation and review of laboratory results Abnormal [facility] Potassium [Moles/Vol] 4.2 mmol/L 3.5 - 5.1 mmol/L [facility] Sodium [Moles/Vol] 139 mmol/L 135 - 145 mmol/L [facility] Urea nitrogen [Mass/Vol] 19 mg/dL 9 - 20 mg/dL [facility] Anion gap [Moles/Vol] 8 mmol/L 3 - 13 mmol/L [facility] Calcium [Mass/Vol] 8.8 mg/dL 8.4 - 10. 4 mg/dL [facility] Chloride [Moles/Vol] 105 mmol/L 98 - 10 7 mmol/L [facility] CO2 [Moles/Vol] 24 mmol/L 22 - 30 mmol/L [facility] Creatinine [Mass/Vol] 1.58 mg/dL High 0.66 - 1.25 mg/dL [facility] GFR/1.73 sq M.predicted (S/P/Bld) [Vol rate/Area] 54.3 mL/min Low - PINF [facility] Comment on above: Calculation based on the Chronic Kidney Disease Epidemiology Collaboration (CKD-EPI) equation refit without adjustment for race Glucose [Mass/Vol] 117 mg/dL High 70 - 100 mg/dL [facility] Interpretation and review of laboratory results Abnormal [facility] Potassium [Moles/Vol] 3.8 mmol/L 3.5 - 5.1 mmol/L [facility] Sodium [Moles/Vol] 136 mmol/L 135 - 145 mmol/L [facility] Urea nitrogen [Mass/Vol] 19 mg/dL 9 - 20 mg/dL [facility] CARECOORDon 02-29-2024 CARECOORD Normal [facility] Consulton 02-29-2024 Consult [facility] IDNon 02-29-2024 IDN The patient is Moderately Stable - Low risk of patient condition declining or worsening The patient's goals for the shift include see cardiology The clinical goals for the shift include hemodynamically stable Normal [facility] LIPID PANELon 02-29-2024 Cholesterol [Mass/Vol] 172 mg/dL Normal <200 [facility] Comment on above: Performed By: #### L AB15, LAB18, [id number] ####Cuff Cutter: LESLEE HERNANDEZ ([id number])[facility] (SBHLAB)[address] Cholesterol in HDL [Mass/Vol] 28 mg/dL Low 40-60 [facility] Comment on above: Performed By: #### L AB15, LAB18, [id number] ####Cuff Cutter: LESLEE HERNANDEZ ([id number])[facility] ([facility])[address] Cholesterol.total/Chol esterol in HDL [Mass ratio] 6 {ratio} Normal [facility] Comment on above: Result Comment: Ref Range:< 3 Low Risk for CHD3-6 Mod Risk for CHD> 6 High Risk for CHD Performed By: #### Pedro AB15, LAB18, [id number] ####Cuff Cutter: LESLEE HERNANDEZ ([id number])[facility] [place] ([facility])[address] LOW DENSITY LIPOPROTEIN 126 mg/dL High 0-<100 [facility] Comment on above: Performed By: #### Pedro AB15, LAB18, [id number] ####Cuff Cutter: LESLEE HERNANDEZ ([id number])[facility] ([facility])[address] Triglyceride [Mass/Vol] 88 mg/dL Normal <150 [facility] Comment on above: Performed By: #### L AB15, LAB18, [id number] ####Cuff Cutter: LESLEE HERNANDEZ ([id number])[facility] (SBAB)[address] Laboratory - Chemistry and C hemistry - challengeon 02-29-2024 Troponin I.cardiac [Mass/Vol] 0.026 ng/mL NINF - 0.034 ng/mL [facility] Lipid 1996 panelon 4 Cholesterol [Mass/Vol] 172 mg/dL NINF - 200 mg/dL [facility] Cholesterol in HDL [Mass/Vol] 28 mg/dL Low 40 - 60 mg/dL [facility] Cholesterol in LDL [Mass/Vol] 126 mg/dL High 0 - <100 [facility] Cholesterol.total/Chol esterol in HDL [Mass ratio] 6 {ratio} [facility] Comment on above: Ref Range: < 3 Low Risk for CHD 3-6 Mod Risk for CHD > 6 High Risk for CHD Interpretation and review of laboratory results Abnormal [facility] Triglyceride [Mass/Vol] 88 mg/dL NINF - 150 mg/dL [facility] Progress Noteon 02-29-2024 Progress Note Normal [facility] TROPONIN Ion 02-29-2024 Troponin I.cardiac [Mass/Vol] 0.026 ng/mL Normal <0.034 [facility] Comment on above: Result Comment: ALEJANDRO Tatum COMMENTS:Patients with high levels of Biotin oral intake (ie >5 mg/day) may have falsely decreased Troponin levels. Performed By: #### L AB15, LAB18, [id number] ####Cuff Cutter: LESLEE HERNANDEZ ([id number])[facility] ([facility])[address] [place] [address] Troponin I.cardiac [Mass/Vol ]on 02-29-2024 Interpretation and review of laboratory results Normal [facility] Patients with high levels of Biotin oral intake (ie >5 mg/day) may have falsely decreased Troponin levels. [facility] US Heart Transthoracicon Ao Root Index 1.52 cm/m2 [facility] Aortic Root 3.3 cm [facility] Aortic Sinus Valsalva 3.2 cm Sum [facility] Aortic Sinus Valsalva Index 1.47 cm/m2 [facility] Ascending Aorta 3.3 cm [facility] Ascending Aorta Index 1.52 cm/m2 Sum [facility] AV Area by Peak Velocity 3.3 cm2 [facility] AV Area by VTI 2.9 cm2 [facility] AV Mean Gradient 3 mmHg [facility] AV Mean Velocity 0.9 m/s [facility] AV Peak Gradient 6 mmHg [facility] alth AV Peak Velocity 1.2 m/s [facility] alth AV Velocity Ratio 0.83 [facility] ealth AV VTI 19.1 cm [facility] EMIYL/BSA Peak Velocity 1.5 cm2/m2 [facility] EMILY/BSA VTI 1.3 cm2/m2 [facility] E/E' Lateral 9.29 [facility] E/E' Ratio (Averaged) 9.29 [facility] E/E' Septal 9.29 [facility] EF BP 30 % Abnormal 55 - 100 % [facility] Est. RA Pressure 3 mmHg [facility] alth Fractional Shortening 2D 15 % 28 - 44 % [facility] Global Longitudinal Strain -7.1 % [facility] Interpretation and review of laboratory results Abnormal [facility] IVC Diameter 1.6 cm [facility] IVSd 1.2 cm Abnormal 0.6 - 1.0 cm [facility] LA Diameter 4.4 cm [facility] LA Size Index 2.03 cm/m2 [facility] LA Volume 2C 84 mL Abnormal 18 - 58 mL [facility] LA Volume 4C 78 mL Abnormal 18 - 58 mL [facility] LA Volume A/L 91 mL [facility] LA Volume BP 84 mL Abnormal 18 - 58 mL [facility] LA Volume Index 2C 39 mL/m2 Abnormal 16 - 34 mL/m2 [facility] LA Volume Index 4C 36 mL/m2 Abnormal 16 - 34 mL/m2 [facility] LA Volume Index A/L 42 mL/m2 16 - 34 mL/m2 [facility] LA Volume Index BP 39 ml/m2 Abnormal 16 - 34 ml/m2 [facility] LA/AO Root Ratio 1.33 [facility] alth LV E' Lateral Velocity 7 cm/s [facility] LV E' Septal Velocity 7 cm/s [facility] LV EDV A2C 236 mL [facility] LV EDV A4C 278 mL [facility] LV EDV BP 259 mL Abnormal 67 - 155 mL [facility] LV EDV Index A2C 109 mL/m2 [facility] alth LV EDV Index A4C 128 mL/m2 [facility] alth LV EDV Index BP 119 mL/m2 [facility] LV Ejection Fraction A2C 25 % [facility] LV Ejection Fraction A4C 35 % [facility] LV ESV A2C 178 mL [facility] LV ESV A4C 181 mL [facility] LV ESV BP 182 mL Abnormal 22 - 58 mL [facility] LV ESV Index A2C 82 mL/m2 [facility] alth LV ESV Index A4C 83 mL/m2 [facility] alth LV ESV Index BP 84 mL/m2 [facility] lth LV Mass 2D 350.2 g Abnormal 88 - 224 g [facility] LV Mass 2D Index 161.4 g/m2 Abnormal 49 - 115 g/m2 [facility] LV RWT Ratio 0.42 [facility] LVIDd 6.2 cm Abnormal 4.2 - 5.9 cm [facility] LVIDd Index 2.86 cm/m2 [facility] LVIDs 5.3 cm [facility] LVIDs Index 2.44 cm/m2 [facility] LVOT Area 3.8 cm2 [facility] LVOT Cardiac Output 5.2 liter/minute [facility] LVOT Diameter 2.2 cm [facility] h LVOT Mean Gradient 2 mmHg [facility] LVOT Peak Gradient 4 mmHg [facility] LVOT Peak Velocity 1.0 m/s [facility] LVOT Stroke Volume Index 25.4 mL/m2 [facility] LVOT SV 55.1 ml [facility] LVOT VTI 14.5 cm [facility] LVOT:AV VTI Index 0.76 [facility] ealt LVPWd 1.3 cm Abnormal 0.6 - 1.0 cm [facility] MR VTI 149.6 cm [facility] MV A Velocity 0.68 m/s [facility] MV E Velocity 0.65 m/s [facility] MV E Wave Deceleration Time 225.7 ms [facility] MV E/A 0.96 [facility] MV Nyquist Velocity 36 cm/s [facility] MV Regurg Velocity PISA 5.2 m/s [facility] RA Area 4C 38.2 mL [facility] RA Area 4C 37.1 mL [facility] RV Basal Dimension 3.0 cm [facility] RV Free Wall Peak S' 16 cm/s [facility] RV Mid Dimension 1.7 cm [facility] alth RVSP 23 mmHg [facility] Sinotubular Junction 2.8 cm [facility] TAPSE 2.5 cm 1.7 cm [facility] TR Max Velocity 2.25 m/s [facility] TR Peak Gradient 20 mmHg [facility] alth Left Ventricle: Left ventricle is mildly dilated. Mildly increased wall thickness. Mild septal thickening. Moderately reduced left ventricular systolic function. EF by 2D Simpsons Biplane is 30%. Global longitudinal strain is -7.1%. Severe global hypokinesis present. Grade II diastolic dysfunction with increased LAP. Right Ventricle: Right ventricle size is normal. Normal systolic function. TAPSE is 2.5 cm. Aortic Valve: No stenosis. AV mean gradient is 3 mmHg. AV peak velocity is 1.2 m/s. LVOT:AV VTI Index is 0.76. Mitral Valve: Moderate (2+) regurgitation. Tricuspid Valve: RVSP is 23 mmHg. Left Atrium: Left atrium is moderately dilated. LA Vol Index A/L is 42 mL/m2. Aorta: Normal sized sinuses of Valsalva and ascending aorta. Sinuses of Valsalva diameter is 3.2 cm. Ao ascending diameter is 3.3 cm. IVC/SVC: IVC diameter is normal and decreases greater than 50% during inspiration; therefore the estimated right atrial pressure is normal (~3 mmHg). Left Ventricle Left ventricle is mildly dilated. Mildly increased wall thickness. Mild septal thickening. Moderately reduced left ventricular systolic function. EF by 2D Simpsons Biplane is 30%. Global longitudinal strain is -7.1%. Severe global hypokinesis present. Grade II diastolic dysfunction with increased LAP. Right Ventricle Right ventricle size is normal. Normal systolic function. TAPSE is 2.5 cm. Left Atrium Left atrium is moderately dilated. LA Vol Index A/L is 42 mL/m2. Right Atrium Right atrium size is normal. IVC/SVC IVC diameter is normal and decreases greater than 50% during inspiration; therefore the estimated right atrial pressure is normal (~3 mmHg). Mitral Valve Valve structure is normal. Moderate (2+) regurgitation. No stenosis noted. Tricuspid Valve Valve structure is normal. Trace regurgitation. RVSP is 23 mmHg. Aortic Valve Trileaflet. Trace regurgitation. No stenosis. AV mean gradient is 3 mmHg. AV peak velocity is 1.2 m/s. LVOT:AV VTI Index is 0.76. Pulmonic Valve Valve structure is normal. Trace regurgitation. Ascending Aorta Normal sized sinuses of Valsalva and ascending aorta. Sinuses of Valsalva diameter is 3.2 cm. Ao ascending diameter is 3.3 cm. Pericardium No pericardial effusion. Septum No interatrial shunt visualized on color Doppler. Pulmonary Artery Pulmonary artery was not well visualized. Study Details Image quality: adequate. Additional technique includes myocardial strain. Heart rate: 91 bpm. Blood pressure: 112/69 mmHg. Ultrasound enhancement agent was given to enhance imaging. Comparison Study There is no prior study available for comparison [facility] BASIC METABOLIC PANELon 08-3 Anion gap [Moles/Vol] 10 mmol/L Normal 3-13 [facility] Comment on above: Performed By: #### Pedro [id number], LAB15, [id number] ####Cuff Cutter: NICOLE BOWERS ([phone])[facility] KAMALJIT RITTMAN (SWRLAB)[address] Calcium [Mass/Vol] 9.1 mg/dL Normal 8.4-10.4 [facility] Comment on above: Performed By: #### Pedro [id number], LAB15, [id number] ####Cuff Cutter: NICOLE BOWERS ([phone])[facility] KAMALJIT RITTMAN (SWRLAB)[address] [place] [address] [place] Chloride [Moles/Vol] 104 mmol/L Normal 98-107 [facility] Comment on above: Performed By: #### Pedro [id number], LAB15, [id number] ####Cuff Cutter: NICOLE BOWERS ([phone])[facility] KAMALJIT RITTMAN (SWRLAB)[address] [place] [address] [place] CO2 [Moles/Vol] 25 mmol/L Normal 22-30 [facility] Comment on above: Performed By: #### Pedro [id number], LAB15, [id number] ####Cuff Cutter: NICOLE BOWERS ([phone])[facility] K[facility]AL[place] RITTMAN (SWRLAB)[address] [place] [address] [place] Creatinine [Mass/Vol] 1.66 mg/dL High 0.66-1.25 [facility] Comment on above: Performed By: #### L AB747, LAB15, [id number] ####Cuff Cutter: NICOLE BOWERS ([phone])[facility] KAMALJIT RITTMAN (SWRLAB)[address] [place] [address] [place] GLOMERULAR FILTRATION RATE ML/MIN/1.73 SQ M.PREDICTED 51.2 mL/min/1.73m*2 Low >60.0 [facility] Comment on above: Result Comment: Calc ulation based on the Chronic Kidney Disease Epidemiology Collaboration (CKD-EPI) equation refit without adjustment for race Performed By: #### Pedro AB747, LAB15, [id number] ####Cuff Cutter: NICOLE BOWERS ([phone])[facility] FLOREZTMAN (SWRLAB)[address] [place] [address] Glucose [Mass/Vol] 118 mg/dL High 70-100 [facility] Comment on above: Performed By: #### Pedro NG, LAB15, [id number] ####Cuff Cutter: NICOLE BOWERS ([phone])[facility] FLOREZTMAN (SWRLAB)[address] [place] [address] Potassium [Moles/Vol] 4.2 mmol/L Normal 3.5-5.1 [facility] Comment on above: Performed By: #### Pedro NG, LAB15, [id number] ####Cuff Cutter: NICOLE BOWERS ([phone])[facility] YEH RITTMAN (SWRLAB)[address] [place] [address] Sodium [Moles/Vol] 139 mmol/L Normal 135-145 [facility] Comment on above: Performed By: #### Pedro NG, LAB15, [id number] ####Cuff Cutter: NICOLE BOWERS ([phone])[facility] YEH RITTMAN (SWRLAB)[address] [place] [address] [place] Urea nitrogen [Mass/Vol] 19 mg/dL Normal 9-20 [facility] Comment on above: Performed By: #### Pedro DIALLO7, LAB15, [id number] ####Cuff Cutter: NICOLE BOWERS ([phone])[facility] FLOREZTMAN (SWRLAB)[address] [place] [address] CBC W Auto Differential pane l (Bld)on 02-28-2024 Basophils (Bld) [#/Vol] 0.0 10*3/uL 0.0 - 0.2 10*3/uL [facility] Basophils/100 WBC (Bld) 0.3 % 0.0 - 2.0 % [facility] Eosinophils (Bld) [#/Vol] 0.1 10*3/uL 0.0 - 0.5 10*3/uL [facility] Eosinophils/100 WBC (Bld) 2.0 % 0.0 - 6.0 % [facility] Erythrocyte distribution width (RBC) [Ratio] 11.7 % 11.5 - 15.0 % [facility] Hematocrit (Bld) [Volume fraction] 40.0 % 40.0 - 52.0 % [facility] Hemoglobin (Bld) [Mass/Vol] 13.5 g/dL 13.0 - 18.0 g/dL [facility] Immature granulocytes (Bld) [#/Vol] 0.0 10*3/uL NINF - 0.1 10*3/uL [facility] Immature granulocytes/100 WBC (Bld) 0.2 % 0.0 - 2.0 % [facility] Interpretation and review of laboratory results Abnormal [facility] Lymphocytes (Bld) [#/Vol] 1.7 10*3/uL 1.0 - 4.3 10*3/uL [facility] Lymphocytes/100 WBC (Bld) 26.3 % 15.0 - 45.0 % [facility] MCH (RBC) [Entitic mass] 31.1 pg 26.0 - 34.0 pg [facility] MCHC (RBC) [Mass/Vol] 33.8 % 30.5 - 36.0 % [facility] MCV (RBC) [Entitic vol] 92.2 fL 77.0 - 99.0 fL [facility] Monocytes (Bld) [#/Vol] 0.4 10*3/uL 0.0 - 0.9 10*3/uL [facility] Monocytes/100 WBC (Bld) 6.2 % 5.0 - 13.0 % [facility] Neutrophils (Bld) [#/Vol] 4.3 10*3/uL 1.8 - 7.5 10*3/uL [facility] Neutrophils/100 WBC (Bld) 65.0 % 38.0 - 82.0 % [facility] Nucleated RBC/100 WBC (Bld) [Ratio] 0.0 % [facility] Platelet mean volume (Bld) [Entitic vol] 9.3 fL 9.0 - 12.7 fL [facility] Comment on above: MPV is a calculated measurement using platelet volume ratio Platelets (Bld) [#/Vol] 279 10*3/uL 140 - 440 10*3/uL [facility] RBC (Bld) [#/Vol] 4.34 10*6/uL Low 4.40 - 5.9 0 10*6/uL [facility] WBC (Bld) [#/Vol] 6.6 10*3/uL 3.6 - 10.7 10*3/uL [facility] CBC WITH AUTO DIFFERENTIALon 02-28-2024 Basophils (Bld) [#/Vol] 0.0 10*3/uL Normal 0.0-0.2 [facility] Comment on above: Performed By: #### L [id number] ####Cuff Cutter: NICOLE BOWERS ([phone])[facility] KAMALJIT RITTMAN (SWRLAB)[address] [place] [address] [place] Basophils/100 WBC (Bld) 0.3 % Normal 0.0-2.0 [facility] Comment on above: Performed By: #### L [id number] ####Cuff Cutter: NICOLE BOWERS ([phone])[facility] KAMALJIT RITTMAN (SWRLAB)[address] [place] [address] [place] Eosinophils (Bld) [#/Vol] 0.1 10*3/uL Normal 0.0-0.5 [facility] Comment on above: Performed By: #### L [id number] ####Cuff Cutter: NICOLE BOWERS ([phone])[facility] KAMALJIT RITTMAN (SWRLAB)[address] [place] [address] [place] Eosinophils/100 WBC (Bld) 2.0 % Normal 0.0-6.0 [facility] Comment on above: Performed By: #### L [id number] ####Cuff Cutter: NICOLE BOWERS ([phone])[facility] [place]AMALJIT RITTMAN (SWRLAB)[address] [place] [address] Erythrocyte distribution width (RBC) [Ratio] 11.7 % Normal 11.5-15.0 [facility] Comment on above: Performed By: #### L [id number] ####Cuff Cutter: NICOLE BOWERS ([phone])[facility] YEH RITTMAN (SWRLAB)[address] [place] [address] Hematocrit (Bld) [Volume fraction] 40.0 % Normal 40.0-52.0 [facility] Comment on above: Performed By: #### L [id number] ####Cuff Cutter: NICOLE BOWERS ([phone])[facility] YEH RITTMAN (SWRLAB)[address] [place] [address] Hemoglobin (Bld) [Mass/Vol] 13.5 g/dL Normal 13.0-18.0 [facility] Comment on above: Performed By: #### L [id number] ####Cuff Cutter: NICOLE BOWERS ([phone])[facility] YEH RITTM[place] (SWRLAB)[address] [place] [address] IMMATURE GRANS % 0.2 % Normal 0.0-2.0 [facility] Comment on above: Performed By: #### L [id number] ####Cuff Cutter: NICOLE BOWERS ([phone])[facility] YEH RITTMAN (SWRLAB)[address] [place] [address] IMMATURE GRANS ABSOLUTE 0.0 10*3/uL Normal <0.1 [facility] Comment on above: Performed By: #### L [id number] ####Cuff Cutter: NICOLE BOWERS ([phone])[facility] YE[facility] RITTM[place] (SWRLAB)[address] [place] [address] [place] Lymphocytes (Bld) [#/Vol] 1.7 10*3/uL Normal 1.0-4.3 [facility] Comment on above: Performed By: #### L [id number] ####Cuff Cutter: NICOLE BOWERS ([phone])[facility] RITTMAN (SWRLAB)[address] [place] [address] [place] Lymphocytes/100 WBC (Bld) 26.3 % Normal 15.0-45.0 [facility] Comment on above: Performed By: #### L [id number] ####Cuff Cutter: NICOLE BOWERS ([phone])[facility] YE[facility] RITTM[place] (SWRLAB)[address] [place] [address] MCH (RBC) [Entitic mass] 31.1 pg Normal 26.0-34.0 [facility] Comment on above: Performed By: #### L [id number] ####Cuff Cutter: NICOLE BOWERS ([phone])[facility] YE[facility] R[place] (SWRLAB)[address] [place] [address] MCHC 33.8 % Normal 30.5-36.0 [facility] Comment on above: Performed By: #### L [id number] ####Cuff Cutter: NICOLE BOWERS ([phone])[facility] YEH RITTMAN (SWRLAB)[address] [place] [address] [place] MCV (RBC) [Entitic vol] 92.2 fL Normal 77.0-99.0 [facility] Comment on above: Performed By: #### L [id number] ####Cuff Cutter: NICOLE BOWERS ([phone])[facility] YE[facility] RIT[place] (SWRLAB)[address] [place] [address] [place] Monocytes (Bld) [#/Vol] 0.4 10*3/uL Normal 0.0-0.9 [facility] Comment on above: Performed By: #### L [id number] ####Cuff Cutter: NICOLE BOWERS ([phone])[facility] YE[facility] RITTM[place] (SWRLAB)[address] [place] [address] [place] Monocytes/100 WBC (Bld) 6.2 % Normal 5.0-13.0 [facility] Comment on above: Performed By: #### L [id number] ####Cuff Cutter: NICOLE BOWERS ([phone])[facility] YE[facility] RITTMAN (SWRLAB)[address] [place] [address] [place] NEUTROPHILS ABSOLUTE 4.3 10*3/uL Normal 1.8-7.5 [facility] Comment on above: Performed By: #### L [id number] ####Cuff Cutter: NICOLE BOWERS ([phone])[facility] YE[facility] RITTMAN (SWRLAB)[address] [place] [address] Neutrophils/100 WBC (Bld) 65.0 % Normal 38.0-82.0 [facility] Comment on above: Performed By: #### L [id number] ####Cuff Cutter: NICOLE BOWERS ([phone])[facility] YE[facility] RITTMAN (SWRLAB)[address] [place] [address] NRBC 0.0 /100 WBCs Normal 0.0-2.0 [facility] Comment on above: Performed By: #### L [id number] ####Cuff Cutter: NICOLE BOWERS ([phone])[facility] YE[facility] RIT[facility] (SWRLAB)[address] [place] [address] Platelet mean volume (Bld) [Entitic vol] 9.3 fL Normal 9.0-12.7 [facility] Comment on above: Result Comment: MPV is a calculated measurement using platelet volume ratio Performed By: #### L [id number] ####Cuff Cutter: NICOLE BOWERS ([phone])[facility] YE[facility] RIT[place] (SWRLAB)[address] [place] [address] [place] Platelets (Bld) [#/Vol] 279 10*3/uL Normal 140-440 [facility] Comment on above: Performed By: #### L [id number] ####Cuff Cutter: NICOLE BOWERS ([phone])[facility] YE[facility] RITTM[place] (SWRLAB)[address] [place] [address] [place] RBC (Bld) [#/Vol] 4.34 10*6/uL Low 4.40-5.90 [facility] Comment on above: Performed By: #### L [id number] ####Cuff Cutter: NICOLE BOWERS ([phone])[facility] FLOREZTMAN (SWRLAB)[address] WBC (Bld) [#/Vol] 6.6 10*3/uL Normal 3.6-10.7 [facility] Comment on above: Performed By: #### Pedro [id number] ####Cuff Cutter: NICOLE BOWERS ([phone])[facility] FLOREZ[place] (SWRLAB)[address] COMPREHENSIVE METABOLIC PANE Ming 02-28-2024 Albumin [Mass/Vol] 4.4 g/dL Normal 3.5-5.0 [facility] Comment on above: Performed By: #### Pedro AB17, [id number], [id number] ####Cuff Cutter: NICOLE BOWERS ([phone])[facility] FLOREZ[place] (SWRLAB)[address] ALP [Catalytic activity/Vol] 83 U/L Normal 38-126 [facility] Comment on above: Performed By: #### L AB17, [id number], [id number] ####Cuff Cutter: NICOLE BOWERS ([phone])[facility] FLOREZ[place] (SWRLAB)[address] ALT [Catalytic activity/Vol] 19 U/L Normal 0-49 [facility] Comment on above: Performed By: #### L AB17, [id number], [id number] ####Cuff Cutter: NICOLE BOWERS ([phone])[facility] YE[facility] (SWRLAB)[address] Anion gap [Moles/Vol] 8 mmol/L Normal 3-13 [facility] Comment on above: Performed By: #### L AB17, [id number], [id number] ####Cuff Cutter: NICOLE BOWERS ([phone])[facility] YEH RITTMAN (SWRLAB)[address] [place] [address] [place] AST [Catalytic activity/Vol] 39 U/L Normal 15-46 [facility] Comment on above: Performed By: #### L AB17, [id number], [id number] ####Cuff Cutter: NICOLE BOWERS ([phone])[facility] YEH RITTMAN (SWRLAB)[address] [place] [address] [place] Bilirubin [Mass/Vol] 1.0 mg/dL Normal 0.2-1.3 [facility] Comment on above: Performed By: #### Pedro HONEYCUTT, [id number], [id number] ####Cuff Cutter: NICOLE BOWERS ([phone])[facility] YEH RITTM[place] (SWRLAB)[address] [place] [address] [place] Calcium [Mass/Vol] 8.8 mg/dL Normal 8.4-10.4 [facility] Comment on above: Performed By: #### Pedro HONEYCUTT, [id number], [id number] ####Cuff Cutter: NICOLE BOWERS ([phone])[facility] YEH RITTMAN (SWRLAB)[address] [place] [address] [place] Chloride [Moles/Vol] 105 mmol/L Normal 98-107 [facility] Comment on above: Performed By: #### Pedro HONEYCUTT, [id number], [id number] ####Cuff Cutter: NICOLE BOWERS ([phone])[facility] YE[facility] RIT[place] (SWRLAB)[address] [place] [address] [place] CO2 [Moles/Vol] 25 mmol/L Normal 22-30 [facility] Comment on above: Performed By: #### Pedro HONEYCUTT, [id number], [id number] ####Cuff Cutter: NICOLE BOWERS ([phone])[facility] YE[facility] RIT[place] (SWRLAB)[address] [place] [address] [place] Creatinine [Mass/Vol] 1.50 mg/dL High 0.66-1.25 [facility] Comment on above: Performed By: #### Pedro HONEYCUTT, [id number], [id number] ####Cuff Cutter: NICOLE BOWERS ([phone])[facility] FLOREZTMAN (SWRLAB)[address] [place] [address] GLOMERULAR FILTRATION RATE ML/MIN/1.73 SQ M.PREDICTED 57.8 mL/min/1.73m*2 Low >60.0 [facility] Comment on above: Result Comment: Calc ulation based on the Chronic Kidney Disease Epidemiology Collaboration (CKD-EPI) equation refit without adjustment for race Performed By: #### Pedro HONEYCUTT, [id number], [id number] ####Cuff Cutter: NICOLE BOWERS ([phone])[facility] FLOREZTMAN (SWRLAB)[address] [place] [address] [place] Glucose [Mass/Vol] 111 mg/dL High 70-100 [facility] Comment on above: Performed By: #### Pedro HONEYCUTT, [id number], [id number] ####Cuff Cutter: NICOLE BOWERS ([phone])[facility] FLOREZTMAN (SWRLAB)[address] [place] [address] [place] Potassium [Moles/Vol] 4.3 mmol/L Normal 3.5-5.1 [facility] Comment on above: Performed By: #### Pedro HONEYCUTT, [id number], [id number] ####Cuff Cutter: NICOLE BOWERS ([phone])[facility] FLOREZTMAN (SWRLAB)[address] [place] [address] [place] Protein [Mass/Vol] 7.8 g/dL Normal 6.3-8.2 [facility] Comment on above: Performed By: #### Pedro HONEYCUTT, [id number], [id number] ####Cuff Cutter: NICOLE BOWERS ([phone])[facility] YEH RITTMAN (SWRLAB)[address] [place] [address] [place] Sodium [Moles/Vol] 138 mmol/L Normal 135-145 [facility] Comment on above: Performed By: #### Pedro AB17, [id number], [id number] ####Cuff Cutter: NICOLE BOWERS ([phone])[facility] (SWRLAB)[address] Urea nitrogen [Mass/Vol] 20 mg/dL Normal 9-20 [facility] Comment on above: Performed By: #### L AB17, [id number], [id number] ####Cuff Cutter: NICOLE BOWERS ([phone])[facility] VIKKITMAN (SWRLAB)[address] COVID-19, Flu A/B, and RSV C omboon 02-28-2024 Interpretation and review of laboratory results Normal [facility] CT CHEST ANGIOGRAM W AND/OR WO IV CONTRASTon 02-28-2024 CT CHEST ANGIOGRAM W AND/OR WO IV CONTRAST Normal [facility] CTA Chest vessels WO and W c ontrast Bl[place]om 02-28-2024 1. Cardiomegaly. Pulmonary vascular congestion with infiltrates. Bilateral small pleural effusions, right greater than left. 2. Peribronchial wall thickening concerning for bronchiolitis. 3. No pulmonary artery embolus. 4. Small hiatal hernia. Report Dictated on Electronically Signed By: Kaitlin Goldsmith MD Electronically Signed Date/Time: 02/28/2024 7:57 PM [facility] Patient Name: CARLO MEDINA : 1980 [facility]#: [id number] Exam Date/Time: 02/28/2024 19:42 Procedure: CT CHEST ANGIOGRAM W AND/OR WO IV CONTRAST Ordering Provider: LE DOUGLAS Reason For Exam: new onset chf. + Dimer. PE? INDICATION: 44-year-old male; new onset CHF; positive d-dimer; concern for pulmonary embolus. Scan parameters: Multiple axial 1mm CT images of the chest were acquired with 3mm coronal and sagittal reconstructions. Dose reduction was employed with automated exposure control. Additional reconstructed coronal MIP images provided with 3-D postprocessing. CONTRAST: 75 mL of Isovue-370 IV contrast COMPARISON: No comparison exam FINDINGS: Lungs: There is thickening of the septa likely reflecting pulmonary vascular congestion. A few scattered airspace infiltrates are present with groundglass attenuation. Nodules: Small 2-3 mm nodules are present which may be inflammatory in etiology. Pleura: Bilateral small pleural effusions are present, right greater than left. Mediastinum and Nai: There is no mediastinal adenopathy. Central airway: The central airway is patent. There is peribronchial wall thickening bilaterally. Thyroid and Esophagus: The thyroid gland contour is normal. The esophagus is decompressed. A small sliding-type hiatal hernia is present. Heart and Great Vessels: The heart is enlarged. There is no pulmonary artery embolus. There are no coronary artery or aorta atherosclerotic calcifications. Osseous structures: The osseous structures are intact. There are multilevel endplate degenerative changes. Axilla and Soft tissue: There is no axillary adenopathy. Mild gynecomastia is present. Upper abdomen: Limited evaluation the upper abdomen is within normal limits. [facility] Kaitlin Goldsmith MD - 02/28/2024 [facility] 1980 [id number] Exam Date/Time: 02/28/2024 19:42 Procedure: CT CHEST ANGIOGRAM W AND/OR WO IV CONTRAST Ordering Provider: LE DOUGLAS Reason For Exam: new onset chf. + Dimer. PE? INDICATION: 44-year-old male; new onset CHF; positive d-dimer; concern for pulmonary embolus. Scan parameters: Multiple axial 1mm CT images of the chest were acquired with 3mm coronal and sagittal reconstructions. Dose reduction was employed with automated exposure control. Additional reconstructed coronal MIP images provided with 3-D postprocessing. CONTRAST: 75 mL of Isovue-370 IV contrast COMPARISON: No comparison exam FINDINGS: Lungs: There is thickening of the septa likely reflecting pulmonary vascular congestion. A few scattered airspace infiltrates are present with groundglass attenuation. Nodules: Small 2-3 mm nodules are present which may be inflammatory in etiology. Pleura: Bilateral small pleural effusions are present, right greater than left. Mediastinum and Nai: There is no mediastinal adenopathy. Central airway: The central airway is patent. There is peribronchial wall thickening bilaterally. Thyroid and Esophagus: The thyroid gland contour is normal. The esophagus is decompressed. A small sliding-type hiatal hernia is present. Heart and Great Vessels: The heart is enlarged. There is no pulmonary artery embolus. There are no coronary artery or aorta atherosclerotic calcifications. Osseous structures: The osseous structures are intact. There are multilevel endplate degenerative changes. Axilla and Soft tissue: There is no axillary adenopathy. Mild gynecomastia is present. Upper abdomen: Limited evaluation the upper abdomen is within normal limits. IMPRESSION: 1. Cardiomegaly. Pulmonary vascular congestion with infiltrates. Bilateral small pleural effusions, right greater than left. 2. Peribronchial wall thickening concerning for bronchiolitis. 3. No pulmonary artery embolus. 4. Small hiatal hernia. Report Dictated on Electronically Signed By: Kaitlin Goldsmith MD Electronically Signed Date/Time: 02/28/2024 7:57 PM EDT [facility] Radiology Study observation (narrative) [facility] Comprehensive metabolic 1998 panelon 02-28-2024 Albumin [Mass/Vol] 4.4 g/dL 3.5 - 5.0 g/dL [facility] ALP [Catalytic activity/Vol] 83 U/L 38 - 126 U/L [facility] ALT [Catalytic activity/Vol] 19 U/L 0 - 49 U/L [facility] Anion gap [Moles/Vol] 8 mmol/L 3 - 13 mmol/L [facility] AST [Catalytic activity/Vol] 39 U/L 15 - 46 U/L [facility] Bilirubin [Mass/Vol] 1.0 mg/dL 0.2 - 1 .3 mg/dL [facility] Calcium [Mass/Vol] 8.8 mg/dL 8.4 - 10. 4 mg/dL [facility] Chloride [Moles/Vol] 105 mmol/L 98 - 10 7 mmol/L [facility] CO2 [Moles/Vol] 25 mmol/L 22 - 30 mmol/L [facility] Creatinine [Mass/Vol] 1.50 mg/dL High 0.66 - 1.25 mg/dL [facility] GFR/1.73 sq M.predicted (S/P/Bld) [Vol rate/Area] 57.8 mL/min Low - PINF [facility] Comment on above: Calculation based on the Chronic Kidney Disease Epidemiology Collaboration (CKD-EPI) equation refit without adjustment for race Glucose [Mass/Vol] 111 mg/dL High 70 - 100 mg/dL [facility] Interpretation and review of laboratory results Abnormal [facility] Potassium [Moles/Vol] 4.3 mmol/L 3.5 - 5.1 mmol/L [facility] Protein [Mass/Vol] 7.8 g/dL 6.3 - 8.2 g/dL [facility] Sodium [Moles/Vol] 138 mmol/L 135 - 145 mmol/L [facility] Urea nitrogen [Mass/Vol] 20 mg/dL 9 - 20 mg/dL [facility] D-DIMER,QUANTITATIVEon 02-27 D-DIMER, INNOVANCE 1.45 mg/L High <0.50 [facility] Comment on above: Result Comment: ALEJANDRO Tatum COMMENTS:Innovance D-Dimer values of <0.50 mg/L FEU can be used in combination with a pre-test probability model (e.g. Well's) to exclude pulmonary embolism (PE) disease, as well as an aid in the diagnosis of deep vein thrombosis (DVT). Performed By: #### L [id number] ####Cuff Cutter: NICOLE BOWERS ([id number])[facility] ([address] ECG 12-LEADon 02-28-2024 ECG 12-LEAD Normal [facility] ED Nursing Noteon 02-28-2024 ED Nursing Note Normal [facility] ED Nursing Note Report called to [facility] CRISTINE Townsend RN 02/28/242116 Normal [facility] ED Nursing Note Normal [facility] ED Provider Noteon ED Provider Note Normal [facility] Fibrin D-dimer FEU (PPP) [Ma ss/Vol]on 02-28-2024 Interpretation and review of laboratory results Abnormal [facility] Innovance D-Dimer values of <0.50 mg/L FEU can be used in combination with a pre-test probability model (e.g. Well's) to exclude pulmonary embolism (PE) disease, as well as an aid in the diagnosis of deep vein thrombosis (DVT). [facility] - Chemistry and C hemistry - challengeon 02-28-2024 TSH Qn 1.375 m[IU]/L [facility] h Troponin I.cardiac [Mass/Vol] 0.019 ng/mL NINF - 0.034 ng/mL [facility] Troponin I.cardiac [Mass/Vol] 0.019 ng/mL NINF - 0.034 ng/mL [facility] - Coagulationon 0 02-28-2024 Fibrin D-dimer FEU (PPP) [Mass/Vol] 1.45 mg/L High NINF - 0.50 mg/L [facility] - Microbiology an d Antimicrobial susceptibilityon 02-28-2024 FLUAV RNA DEENA+probe Ql (Resp) Not detected Not Detected [facility] FLUBV RNA DEENA+probe Ql (Resp) Not detected Not Detected [facility] RSV RNA DEENA+probe Ql (Resp) Not detected Not Detected [facility] SARS-CoV-2 (COVID-19) RNA DEENA+probe Ql (Resp) Not detected Not Detected [facility] SARS-CoV-2 (COVID-19) RNA DEENA+probe Ql (Unsp spec) Methodology: real-time, RT-PCR The SARS-CoV-2, Flu A/B, and RSV Combo assay is intended for in vitro diagnostic use under the FDA Emergency Use Authorization (EUA). This test has not been FDA cleared or approved. In compliance with this authorization, please visit www.fda.gov/media/038 360/download or www.fda.gov/media/842 436/download to access the applicable information sheets. [facility] NT PRO BNPon 02-28-2024 Natriuretic peptide B (Bld) [Mass/Vol] 5170 pg/mL High <20-100 [facility] Comment on above: Performed By: #### L [id number], [id number], [id number] ####Cuff Cutter: NICOLE BOWERS ([id number])[facility] ([facility])[address] [place] [address] Natriuretic peptide B [Mass/ Vol]on 02-28-2024 Interpretation and review of laboratory results Abnormal [facility] Natriuretic peptide B (Bld) [Mass/Vol] 5170 pg/mL High <20 - 100 [facility] No Panel Informationon 02-27 [facility] P [place] 59 degrees [facility] IN Interval 145 ms [facility] QRS [place] -16 degrees [facility] QRSD Interval 99 ms [facility] QT Interval 341 ms [facility] QTC Interval 469 ms [facility] T Wave [place] 124 degrees [facility] Kranthi Vic Nichole Tatum D - 02/28/2024 IMPRESSION: Sinus tachycardia Probable left atrial enlargement Abnormal R-wave progression, late transition Left ventricular hypertrophy Abnormal T, consider ischemia, lateral leads ST elevation, consider anterior injury No old ekg available for comparison Electronically Signed On 02-28-2024 18:14:12 EDT by Vic Loaiza [facility] SARS-COV-2, FLU A/B, AND RSV COMBOon 02-28-2024 SARS-CoV-2 (COVID-19) RNA DEENA+probe Ql (Unsp spec) Normal [facility] Comment on above: Performed By: #### L [id number] ####Cuff Cutter: NICOLE BOWERS ([id number])[facility] [employer] ([facility])[address] [place] [address] [place] THYROID STIMULATING HORMONEo n 02-28-2024 THYROID STIMULATING HORMONE 1.375 uIU/mL Normal 0.465-4.680 [facility] Comment on above: Performed By: #### L [id number], [id number], [id number] ####Cuff Cutter: NICOLE BOWERS ([id number])[facility] KAMAL[employer]TMAN ([facility])[address] [place] [address] [place] TROPONIN Ion 02-28-2024 Troponin I.cardiac [Mass/Vol] 0.019 ng/mL Normal <0.034 [facility] Comment on above: Result Comment: ALEJANDRO Tatum COMMENTS:Patients with high levels of Biotin oral intake (ie >5 mg/day) may have falsely decreased Troponin levels. Performed By: #### L [id number], LAB15, [id number] ####Cuff Cutter: NICOLE BOWERS ([id number])[facility] [employer] ([facility])[address] [place] [address] [place] TROPONIN, WITH SERIAL REFLEX on 02-28-2024 Troponin I.cardiac [Mass/Vol] 0.019 ng/mL Normal <0.034 [facility] Comment on above: Result Comment: ALEJANDRO Tatum COMMENTS:Patients with high levels of Biotin oral intake (ie >5 mg/day) may have falsely decreased Troponin levels. Performed By: #### L [id number], [id number], [id number] ####Cuff Cutter: NICOLE BOWERS ([id number])[facility] ([facility])[address] [place] [address] TSH Qnon 02-28-2024 Interpretation and review of laboratory results Normal [facility] Troponin I.cardiac [Mass/Vol ]on 02-28-2024 Interpretation and review of laboratory results Normal [facility] Patients with high levels of Biotin oral intake (ie >5 mg/day) may have falsely decreased Troponin levels. [facility] Interpretation and review of laboratory results Normal [facility] Patients with high levels of Biotin oral intake (ie >5 mg/day) may have falsely decreased Troponin levels. [facility] Vital signson 02-28-2024 Heart rate 113 /min bpm [facility] XR Chest Single viewon 02-27 1. Cardiomegaly. 2. Pulmonary vascular congestion. 3. Suspect bilateral perihilar infiltrates. Report Dictated on Electronically Signed By: Kaitlin Goldsmith MD Electronically Signed Date/Time: 02/28/2024 6:47 PM EDT [facility] [employer] [facility] 1980 [id number] Exam Date/Time: 02/28/2024 18:41 Procedure: XR CHEST 1 VIEW Ordering Provider: LOAIZA AUSTIN Reason For Exam: sob INDICATION: Shortness of breath. VIEWS: Chest PA upright-1 image COMPARISON: None. FINDINGS: The trachea is midline. The cardiac silhouette is enlarged. There is thickening of the interstitium. Perihilar patchy opacities are present. The costophrenic angles appear sharp. Cardiac monitoring wires and leads are present. There are multilevel endplate degenerative changes of the thoracic spine. [facility] Kaitlin Goldsmith MD - 02/28/2024 Patient Name: CARLO MEDINA : 1980 [facility]#: [id number] Exam Date/Time: 02/28/2024 18:41 Procedure: XR CHEST 1 VIEW Ordering Provider: LOAIZA AUSTIN Reason For Exam: sob INDICATION: Shortness of breath. VIEWS: Chest PA upright-1 image COMPARISON: None. FINDINGS: The trachea is midline. The cardiac silhouette is enlarged. There is thickening of the interstitium. Perihilar patchy opacities are present. The costophrenic angles appear sharp. Cardiac monitoring wires and leads are present. There are multilevel endplate degenerative changes of the thoracic spine. IMPRESSION: 1. Cardiomegaly. 2. Pulmonary vascular congestion. 3. Suspect bilateral perihilar infiltrates. Report Dictated on Electronically Signed By: Kaitlin Goldsmith MD Electronically Signed Date/Time: 02/28/2024 6:47 PM EDT [facility] Radiology Study observation (narrative) [employer] XR Chest Single viewOrdered By: Kaitlin Goldsmith on 02-28-2024 [facility] Work Phone: Vital Signs Date Time Vital Sign Value Performing Clinician Facility 01-10-2025 09:15-0400 Body temperature 98.2 [degF] Dr. Deborah Penaloza DO Work Phone: [facility] 01-10-2025 09:15-0400 Diastolic blood pressure 84 mm[Hg] Dr. Deborah Penaloza DO Work Phone: [facility] 01-10-2025 09:15-0400 Heart rate 53 /min Dr. Deborah Penaloza DO Work Phone: [facility] 01-10-2025 09:15-0400 Respiratory rate 17 /min Dr. Deborah Penaloza DO Work Phone: [facility] 01-10-2025 09:15-0400 SaO2% (BldA) [Mass fraction] 98 % Dr. Deborah Penaloza DO Work Phone: 0(560)546-053923 [place] [address] 01-10-2025 09:15-0400 Systolic blood pressure 109 mm[Hg] Dr. Deborah Penaloza DO Work Phone: 8(747)956-166323 [place] [address] 01-10-2025 05:37-0400 Diastolic blood pressure 80 mm[Hg] Dr. Deborah Penaloza DO Work Phone: 6(089)233-015123 [place] [address] 01-10-2025 05:37-0400 Systolic blood pressure 107 mm[Hg] Dr. Deborah Penaloza DO Work Phone: 6(634)754-693897 [place] [address] 01-10-2025 04:57-0400 Body mass index (BMI) [Ratio] 21.3 kg/m2 Dr. Deborah Penaloza DO Work Phone: 6(645)434-858697 [place] [address] 01-10-2025 04:57-0400 Body weight 73.[address] Deborah Penaloza DO Work Phone: 1(314)895-739397 [place] [address] 01-10-2025 03:15-0400 Body temperature 97.8 [degF] Dr. Deborah Penaloza DO Work Phone: 7(817)491-315623 [place] [address] 01-10-2025 03:15-0400 Heart rate 100 /min Dr. Deborah Penaloza DO Work Phone: 2(918)855-178623 [place] [address] 01-10-2025 03:15-0400 Respiratory rate 16 /min Dr. Deborah Penaloza DO Work Phone: 2(136)721-905423 [place] [address] 01-10-2025 03:15-0400 SaO2% (BldA) [Mass fraction] 100 % Dr. Deborah Penaloza DO Work Phone: 9(858)667-305323 [place] [address] 01-05-2025 14:36-0400 Body height 185.[address] Deborah Penaloza DO Work Phone: 7(194)198-208923 [place] [address] 01-04-2025 14:05-0400 Body temperature 98 [degF] Dr. Deborah Penaloza DO Work Phone: 1(591)201-630823 [place] [address] 01-04-2025 14:05-0400 Diastolic blood pressure 97 mm[Hg] Dr. Deborah Penaloza DO Work Phone: [facility] 01-04-2025 14:05-0400 Heart rate 53 /min Dr. Deborah Penaloza DO Work Phone: [facility] 01-04-2025 14:05-0400 Respiratory rate 23 /min Dr. Deborah Penaloza DO Work Phone: 2(887)789-405923 [place] [address] 01-04-2025 14:05-0400 SaO2% (BldA) [Mass fraction] 100 % Dr. Deborah Penaloza DO Work Phone: 4(271)926-565023 [place] [address] 01-04-2025 14:05-0400 Systolic blood pressure 126 mm[Hg] Dr. Deborah Penaloza DO Work Phone: 3(329)438-914823 [place] [address] 01-04-2025 14:00-0400 Inhaled oxygen flow rate 2 L/min Dr. Deborah Penaloza DO Work Phone: [facility] 01-04-2025 07:28-0400 Body height 185.[address] Deborah Penaloza DO Work Phone: [facility] 01-04-2025 07:28-0400 Body mass index (BMI) [Ratio] 23.9 kg/m2 Dr. Deborah Penaloza DO Work Phone: [facility] 01-04-2025 07:28-0400 Body weight 82.[address] Deborah Penaloza DO Work Phone: [facility] 10-26-2024 05:14-0400 Body temperature 99.9 [degF] Phoebe Sanderson MD Work Phone: [facility] 10-26-2024 05:14-0400 Diastolic blood pressure 78 mm[Hg] Phoebe Sanderson MD Work Phone: [facility] 10-26-2024 05:14-0400 Heart rate 102 /min Phoebe Sanderson MD Work Phone: [facility] 10-26-2024 05:14-0400 Respiratory rate 19 /min Phoebe Sanderson MD Work Phone: [facility] 10-26-2024 05:14-0400 SaO2% (BldA) [Mass fraction] 97 % Phoebe Sanderson MD Work Phone: [facility] 10-26-2024 05:14-0400 Systolic blood pressure 96 mm[Hg] Phoebe Sanderson MD Work Phone: [facility] 10-20-2024 22:38-0400 Heart rate 53 /min Phoebe Sanderson MD Work Phone: [facility] 10-20-2024 17:00-0400 Body mass index (BMI) [Ratio] 19.74 kg/m2 Phoebe Sanderson MD Work Phone: [facility] 10-20-2024 17:00-0400 Body weight 67.86 kg Phoebe Sanderson MD Work Phone: [facility] 10-18-2024 18:03-0400 Heart rate 117 /min Phoebe Sanderson MD Work Phone: [facility] 10-18-2024 05:18-0400 Body height 185.4 cm Phoebe Sanderson MD Work Phone: [facility] 10-13-2024 15:57-0400 Body temperature 98.4 [degF] Luis Eduardo Schiele DO Work Phone: [facility] 10-13-2024 15:57-0400 Diastolic blood pressure 77 mm[Hg] Luis Eduardo Schiele DO Work Phone: [facility] 10-13-2024 15:57-0400 Heart rate 98 /min Luis Eduardo Schiele DO Work Phone: [facility] 10-13-2024 15:57-0400 Respiratory rate 16 /min Luis Eduardo Schiele DO Work Phone: [facility] 10-13-2024 15:57-0400 SaO2% (BldA) [Mass fraction] 97 % Luis Eduardo Schiele DO Work Phone: [facility] 10-13-2024 15:57-0400 Systolic blood pressure 103 mm[Hg] Luis Eduardo Bernal DO Work Phone: [facility] 10-06-2024 14:00-0400 Body temperature 97.7 [degF] Vargas Berg MD Work Phone: [facility] 10-06-2024 14:00-0400 Diastolic blood pressure 91 mm[Hg] Vargas Berg MD Work Phone: [facility] 10-06-2024 14:00-0400 Heart rate 137 /min Vargas Berg MD Work Phone: [facility] 10-06-2024 14:00-0400 Respiratory rate 18 /min Vargas Berg MD Work Phone: [facility] 10-06-2024 14:00-0400 SaO2% (BldA) [Mass fraction] 99 % Vargas Berg MD Work Phone: [facility] 10-06-2024 14:00-0400 Systolic blood pressure 104 mm[Hg] Vargas Berg MD Work Phone: [facility] 10-06-2024 10:00-0400 Body mass index (BMI) [Ratio] 22.25 kg/m2 Vargas Berg MD Work Phone: [facility] 10-06-2024 10:00-0400 Body weight 76.5 kg Vargas Berg MD Work Phone: [facility] 10-02-2024 11:34-0400 Heart rate 112 /min Vargas Berg MD Work Phone: [facility] 10-01-2024 19:45-0400 Body height 185.4 cm Vargas Berg MD Work Phone: [facility] 09-17-2024 17:43-0400 Diastolic blood pressure 85 mm[Hg] King Medina DO Work Phone: [facility] 09-17-2024 17:43-0400 Heart rate 109 /min King Medina DO Work Phone: [facility] 09-17-2024 17:43-0400 Respiratory rate 16 /min King Medina DO Work Phone: [facility] 09-17-2024 17:43-0400 SaO2% (BldA) [Mass fraction] 99 % King Medina DO Work Phone: [facility] 09-17-2024 17:43-0400 Systolic blood pressure 108 mm[Hg] King Medina DO Work Phone: [facility] 08-25-2024 07:29-0500 Heart rate 110 /min King Schaffer DO Work Phone: [facility] 08-25-2024 06:09-0500 Respiratory rate 18 /min King Schaffer DO Work Phone: [facility] 08-25-2024 06:09-0500 SaO2% (BldA) [Mass fraction] 97 % King Schaffer DO Work Phone: [facility] 08-25-2024 06:08-0500 Diastolic blood pressure 84 mm[Hg] King Schaffer DO Work Phone: [facility] 08-25-2024 06:08-0500 Systolic blood pressure 102 mm[Hg] King Waldeny DO Work Phone: [facility] 08-25-2024 01:16-0500 Body temperature 97 [degF] King Waldeny DO Work Phone: [facility] 08-23-2024 07:25-0500 Heart rate 113 /min Joel Roa MD Work Phone: [facility] 08-23-2024 07:11-0500 Diastolic blood pressure 84 mm[Hg] Joel Roa MD Work Phone: [facility] 08-23-2024 07:11-0500 Respiratory rate 18 /min Joel Roa MD Work Phone: [facility] 08-23-2024 07:11-0500 SaO2% (BldA) [Mass fraction] 100 % Joel Roa MD Work Phone: [facility] 08-23-2024 07:11-0500 Systolic blood pressure 103 mm[Hg] Joel Roa MD Work Phone: [employer] [facility] 08-23-2024 05:33-0500 Body height 185.4 cm Joel Roa MD Work Phone: [facility] 08-23-2024 05:33-0500 Body mass index (BMI) [Ratio] 20.85 kg/m2 Joel Roa MD Work Phone: [facility] 08-23-2024 05:33-0500 Body temperature 97.59 [degF] Joel Roa MD Work Phone: [employer] [facility] 08-23-2024 05:33-0500 Body weight 71.67 kg Joel Roa MD Work Phone: [employer] [facility] 08-20-2024 10:52-0500 Body temperature 97.7 [degF] Joel Fernandes MD Work Phone: [facility] 08-20-2024 10:52-0500 Diastolic blood pressure 64 mm[Hg] Joel Fernandes MD Work Phone: [employer] [facility] 08-20-2024 10:52-0500 Heart rate 59 /min Joel Fernandes MD Work Phone: [facility] 08-20-2024 10:52-0500 Respiratory rate 14 /min Joel Fernandes MD Work Phone: [employer] [facility] 08-20-2024 10:52-0500 SaO2% (BldA) [Mass fraction] 96 % Joel Fernandes MD Work Phone: [employer] 08-20-2024 10:52-0500 Systolic blood pressure 95 mm[Hg] Joel Fernandes MD Work Phone: [facility] 08-20-2024 03:17-0500 Body mass index (BMI) [Ratio] 20.89 kg/m2 Joel Fernandes MD Work Phone: [facility] [employer] 08-20-2024 03:17-0500 Body weight 71.8 kg Joel Fernandes MD Work Phone: [facility] 08-15-2024 08:50-0500 Body height 185.4 cm Joel Fernandes MD Work Phone: [facility] 08-05-2024 08:18-0500 Diastolic blood pressure 89 mm[Hg] Dia Gaitan RN [facility] 08-05-2024 08:18-0500 Heart rate 58 /min Dia Gaitan RN [facility] 08-05-2024 08:18-0500 Respiratory rate 16 /min Dia Gaitan RN [facility] 08-05-2024 08:18-0500 SaO2% (BldA) [Mass fraction] 100 % Dia Gaitan RN [facility] 08-05-2024 08:18-0500 Systolic blood pressure 114 mm[Hg] Dia Gaitan RN [facility] 08-04-2024 23:07-0500 Body temperature 100.09 [degF] Dia Gaitan RN [facility] 08-04-2024 10:02-0500 Body height 185.4 cm Sergei Astudillo MD Work Phone: [facility] 08-04-2024 10:02-0500 Body mass index (BMI) [Ratio] 22.03 kg/m2 Sergei Astudillo MD Work Phone: [facility] 08-04-2024 10:02-0500 Body weight 75.75 kg Sergei Astudillo MD Work Phone: [facility] 08-04-2024 10:02-0500 Diastolic blood pressure 82 mm[Hg] Sergei Astudillo MD Work Phone: [facility] 08-04-2024 10:02-0500 Heart rate 79 /min Sergei Astudillo MD Work Phone: [employer] 08-04-2024 10:02-0500 SaO2% (BldA) [Mass fraction] 97 % Sergei Astudillo MD Work Phone: [facility] 08-04-2024 10:02-0500 Systolic blood pressure 132 mm[Hg] Sergei Astudillo MD Work Phone: [facility] 07-30-2024 11:26-0500 Body temperature 97 [degF] Berthamanuelito Pichardo DO Work Phone: [employer] 07-30-2024 11:26-0500 Diastolic blood pressure 84 mm[Hg] Bertha Kylee DO Work Phone: [employer] 07-30-2024 11:26-0500 Heart rate 56 /min Bertha Kylee DO Work Phone: [employer] 07-30-2024 11:26-0500 Respiratory rate 18 /min Berthajese Pichardo DO Work Phone: [employer] 07-30-2024 11:26-0500 SaO2% (BldA) [Mass fraction] 97 % Bertha Pichardo DO Work Phone: [employer] 07-30-2024 11:26-0500 Systolic blood pressure 115 mm[Hg] Bertha Pichardo DO Work Phone: [employer] 07-30-2024 05:00-0500 Body mass index (BMI) [Ratio] 21.53 kg/m2 Berthajese Pichardo DO Work Phone: [employer] 07-30-2024 05:00-0500 Body weight 74.03 kg Bertha Pichardo DO Work Phone: [employer] 07-21-2024 09:35-0500 Body height 185.4 cm Morganally Mimsk CURRICULUM DIRECTOR - WHITING MACHINE OPERATOR Work Phone: [employer] 07-21-2024 09:35-0500 Body mass index (BMI) [Ratio] 24.96 kg/m2 Morgan Laila CURRICULUM DIRECTOR - WHITING MACHINE OPERATOR Work Phone: [employer] 07-21-2024 09:35-0500 Body weight 85.82 kg Morgan Laila CURRICULUM DIRECTOR - WHITING MACHINE OPERATOR Work Phone: [employer] 07-21-2024 09:35-0500 Diastolic blood pressure 98 mm[Hg] Morgan Mimsk CURRICULUM DIRECTOR - WHITING MACHINE OPERATOR Work Phone: [facility] 07-21-2024 09:35-0500 Heart rate 104 /min Morgan Ulloa CURRICULUM DIRECTOR - WHITING MACHINE OPERATOR Work Phone: [facility] 07-21-2024 09:35-0500 SaO2% (BldA) [Mass fraction] 94 % Morgan Ulloa CURRICULUM DIRECTOR - WHITING MACHINE OPERATOR Work Phone: [facility] 07-21-2024 09:35-0500 Systolic blood pressure 120 mm[Hg] Morgan Ulloa CURRICULUM DIRECTOR - WHITING MACHINE OPERATOR Work Phone: [facility] 07-16-2024 08:00-0500 Body temperature 97 [degF] ANGELO Kenny MD Work Phone: [facility] 07-16-2024 08:00-0500 Diastolic blood pressure 66 mm[Hg] ANGELO Kenny MD Work Phone: [facility] 07-16-2024 08:00-0500 Heart rate 88 /min ANGELO Kenny MD Work Phone: [facility] 07-16-2024 08:00-0500 Respiratory rate 18 /min ANGELO Kenny MD Work Phone: [facility] 07-16-2024 08:00-0500 SaO2% (BldA) [Mass fraction] 99 % ANGELO Kenny MD Work Phone: [facility] 07-16-2024 08:00-0500 Systolic blood pressure 99 mm[Hg] ANGELO Kenny MD Work Phone: [facility] 07-16-2024 06:16-0500 Body mass index (BMI) [Ratio] 23.71 kg/m2 ANGELO Kenny MD Work Phone: [employer] 07-16-2024 06:16-0500 Body weight 81.5 kg ANGELO Kenny MD Work Phone: [facility] 07-12-2024 17:13-0500 Body height 185.4 cm ANGELO Kenny MD Work Phone: [facility] 07-07-2024 12:57-0500 Body height 185.4 cm Alex Zhang MD Work Phone: [facility] 07-07-2024 12:57-0500 Body mass index (BMI) [Ratio] 23.41 kg/m2 Alex Zhang MD Work Phone: [facility] 07-07-2024 12:57-0500 Body weight 80.47 kg Alex Zhang MD Work Phone: [facility] 07-07-2024 12:57-0500 Diastolic blood pressure 88 mm[Hg] Alex Zhang MD Work Phone: [facility] 07-07-2024 12:57-0500 Heart rate 112 /min Alex Zhang MD Work Phone: [facility] 07-07-2024 12:57-0500 SaO2% (BldA) [Mass fraction] 94 % Alex Zhang MD Work Phone: [facility] 07-07-2024 12:57-0500 Systolic blood pressure 106 mm[Hg] Alex Zhang MD Work Phone: [facility] 07-05-2024 14:00-0500 Diastolic blood pressure 88 mm[Hg] Kishore Mudrakola DO Work Phone: [facility] 07-05-2024 14:00-0500 Heart rate 98 /min Kishore Mudrakola DO Work Phone: [facility] 07-05-2024 14:00-0500 Respiratory rate 16 /min Kishore Mudrakola DO Work Phone: [facility] 07-05-2024 14:00-0500 SaO2% (BldA) [Mass fraction] 97 % Kishore Mudrakola DO Work Phone: [facility] 07-05-2024 14:00-0500 Systolic blood pressure 124 mm[Hg] Kishore Mudrakola DO Work Phone: [facility] 07-05-2024 12:00-0500 Body temperature 98.2 [degF] Kishore Mudrakola DO Work Phone: [facility] 07-05-2024 08:00-0500 Body mass index (BMI) [Ratio] 22.48 kg/m2 Kishore Alonso DO Work Phone: [facility] 07-05-2024 08:00-0500 Body weight 77.29 kg Kishore Alonso DO Work Phone: [facility] 07-04-2024 06:00-0500 Body height 185.4 cm Kishore Alonso DO Work Phone: [facility] 07-01-2024 11:08-0500 Diastolic blood pressure 92 mm[Hg] Alex Zhang MD Work Phone: [facility] 07-01-2024 11:08-0500 Systolic blood pressure 125 mm[Hg] Alex Zhang MD Work Phone: [facility] 07-01-2024 10:54-0500 Body height 185.4 cm Alex Zhang MD Work Phone: [facility] 07-01-2024 10:54-0500 Body mass index (BMI) [Ratio] 23.09 kg/m2 Alex Zhang MD Work Phone: [facility] 07-01-2024 10:54-0500 Body weight 79.38 kg Alex Zhang MD Work Phone: [facility] 07-01-2024 10:54-0500 Heart rate 112 /min Alex Zhang MD Work Phone: [employer] 07-01-2024 10:54-0500 SaO2% (BldA) [Mass fraction] 98 % Alex Zhang MD Work Phone: [employer] 06-21-2024 13:25-0500 Heart rate 102 /min Joel Reyes MD Work Phone: [employer] 06-21-2024 13:25-0500 SaO2% (BldA) [Mass fraction] 98 % Joel Reyes MD Work Phone: [employer] [facility] 06-21-2024 13:24-0500 Body temperature 97.9 [degF] Joel Reyes MD Work Phone: [employer] [facility] 06-21-2024 13:24-0500 Diastolic blood pressure 83 mm[Hg] Joel Reyes MD Work Phone: [employer] [facility] 06-21-2024 13:24-0500 Respiratory rate 18 /min Joel Reyes MD Work Phone: [employer] [facility] 06-21-2024 13:24-0500 Systolic blood pressure 116 mm[Hg] Joel Reyes MD Work Phone: [employer] [facility] 06-20-2024 19:35-0500 Body mass index (BMI) [Ratio] 22.13 kg/m2 Joel Reyes MD Work Phone: [employer] [facility] 06-20-2024 19:35-0500 Body weight 76.07 kg Joel Reyse MD Work Phone: [facility] 06-15-2024 11:19-0500 Body height 185.4 cm Joel Reyes MD Work Phone: [employer] 06-08-2024 10:45-0500 Diastolic blood pressure 100 mm[Hg] Morgan Mimsk CURRICULUM DIRECTOR - WHITING MACHINE OPERATOR Work Phone: [employer] [facility] 06-08-2024 10:45-0500 Systolic blood pressure 124 mm[Hg] Morgan Laila CURRICULUM DIRECTOR - WHITING MACHINE OPERATOR Work Phone: [employer] [facility] 06-08-2024 10:32-0500 Body height 185.4 cm Morgan Laila CURRICULUM DIRECTOR - WHITING MACHINE OPERATOR Work Phone: [employer] [facility] 06-08-2024 10:32-0500 Body mass index (BMI) [Ratio] 24.04 kg/m2 Morgan Laila CURRICULUM DIRECTOR - WHITING MACHINE OPERATOR Work Phone: [employer] [facility] 06-08-2024 10:32-0500 Body weight 82.64 kg Morgan Tolak CURRICULUM DIRECTOR - WHITING MACHINE OPERATOR Work Phone: [facility] 06-08-2024 10:32-0500 Heart rate 117 /min Morgan Ulloa CURRICULUM DIRECTOR - WHITING MACHINE OPERATOR Work Phone: [facility] 06-08-2024 10:32-0500 SaO2% (BldA) [Mass fraction] 98 % Morgan Ulloa CURRICULUM DIRECTOR - WHITING MACHINE OPERATOR Work Phone: [facility] 06-03-2024 20:52-0500 Diastolic blood pressure 89 mm[Hg] Lewis Alexander DO Work Phone: [employer] [facility] 06-03-2024 20:52-0500 Heart rate 56 /min Lewis Alexander DO Work Phone: [employer] [facility] 06-03-2024 20:52-0500 Respiratory rate 18 /min Lewis Alexander DO Work Phone: [employer] [facility] 06-03-2024 20:52-0500 SaO2% (BldA) [Mass fraction] 99 % Lewis Alexander DO Work Phone: [facility] 06-03-2024 20:52-0500 Systolic blood pressure 124 mm[Hg] Lewis Alexander DO Work Phone: [employer] [facility] 06-03-2024 18:36-0500 Body temperature 97.3 [degF] Lewis Alexander DO Work Phone: [employer] [facility] 06-01-2024 15:44-0500 Body temperature 97.2 [degF] Izaiah Martins MD Work Phone: [employer] [facility] 06-01-2024 15:44-0500 Diastolic blood pressure 98 mm[Hg] Izaiah Martins MD Work Phone: [employer] 06-01-2024 15:44-0500 Heart rate 51 /min Izaiah Martins MD Work Phone: [employer] [facility] 06-01-2024 15:44-0500 Respiratory rate 16 /min Izaiah Martins MD Work Phone: [employer] [facility] 06-01-2024 15:44-0500 SaO2% (BldA) [Mass fraction] 97 % Izaiah Martins MD Work Phone: [employer] 06-01-2024 15:44-0500 Systolic blood pressure 130 mm[Hg] Izaiah Martins MD Work Phone: [employer] 05-29-2024 13:57-0500 Body height 185.4 cm Izaiah Martins MD Work Phone: [employer] 05-28-2024 14:41-0500 Body mass index (BMI) [Ratio] 23.75 kg/m2 Izaiah Martins MD Work Phone: [employer] 05-28-2024 14:41-0500 Body weight 81.65 kg Izaiah Martins MD Work Phone: [employer] 04-28-2024 10:29-0400 Body temperature 97.9 [degF] Juan Carlos Le MD Work Phone: [employer] 04-28-2024 10:29-0400 Heart rate 106 /min Juan Carlos Le MD Work Phone: [employer] 04-28-2024 10:29-0400 SaO2% (BldA) [Mass fraction] 95 % Juan Carlos Le MD Work Phone: [employer] 04-28-2024 10:14-0400 Diastolic blood pressure 92 mm[Hg] Juan Carlos Le MD Work Phone: [employer] 04-28-2024 10:14-0400 Systolic blood pressure 121 mm[Hg] Juan Carlos Le MD Work Phone: [employer] 04-28-2024 07:39-0400 Body mass index (BMI) [Ratio] 25.3 kg/m2 Juan Carlos Le MD Work Phone: [employer] 04-28-2024 07:39-0400 Body weight 87 kg Juan Carlos Le MD Work Phone: [employer] 04-28-2024 07:39-0400 Respiratory rate 16 /min Juan Carlos Le MD Work Phone: [employer] 04-28-2024 02:39-0400 Body height 185.4 cm Juan Carlos Le MD Work Phone: [facility] 03-07-2024 07:21-0400 Heart rate 88 /min Shane Stern MD Work Phone: [facility] 03-07-2024 07:21-0400 Respiratory rate 16 /min Shane Stern MD Work Phone: [facility] 03-07-2024 07:21-0400 SaO2% (BldA) [Mass fraction] 98 % Shane Stern MD Work Phone: [facility] 03-07-2024 07:21-0400 Body temperature 97.59 [degF] Shane Stern MD Work Phone: [facility] 03-07-2024 07:21-0400 Diastolic blood pressure 102 mm[Hg] Shane Stern MD Work Phone: [facility] 03-07-2024 07:21-0400 Systolic blood pressure 142 mm[Hg] Shane Stern MD Work Phone: [facility] 03-07-2024 03:10-0400 Body mass index (BMI) [Ratio] 24.59 kg/m2 Shane Stern MD Work Phone: [facility] 03-07-2024 03:10-0400 Body weight 84.55 kg Shane Stern MD Work Phone: [facility] 03-05-2024 21:50-0400 Body height 185.4 cm Shane Stern MD Work Phone: [facility] 03-01-2024 11:39-0400 Body temperature 96.91 [degF] Vic Loaiza MD Work Phone: [facility] 03-01-2024 11:39-0400 Diastolic blood pressure 107 mm[Hg] Vic Loaiza MD Work Phone: [facility] 09-02-2024 11:39-0400 Heart rate 93 /min Vic Loaiza MD Work Phone: [employer] 03-01-2024 11:39-0400 Respiratory rate 16 /min Vic Loaiza MD Work Phone: [employer] 03-01-2024 11:39-0400 SaO2% (BldA) [Mass fraction] 98 % Vic Loaiza MD Work Phone: [employer] 03-01-2024 11:39-0400 Systolic blood pressure 141 mm[Hg] Vic Loaiza MD Work Phone: [employer] 02-29-2024 09:30-0400 Body height 185.4 cm Vic Loaiza MD Work Phone: [employer] 02-29-2024 09:30-0400 Body mass index (BMI) [Ratio] 27.05 kg/m2 Vic Loaiza MD Work Phone: [employer] 02-29-2024 09:30-0400 Body weight 92.99 kg Vic Loaiza MD Work Phone: [employer] Encounters Encounter Date Encounter Type Care Provider Facility Start: 01-24-2025 End: 01-24-2025 Patient Outreach Mallika Quiles [facility] Work Phone: Pharmacy Comment on above: Transition Of Care; Heart Failure (TCM Pharmacy-Hospital discharge 01/21/25) Start: 01-19-2025 End: 01-21-2025 Evaluation and management of inpatient MAGED SUNNY Facility:[facility] Start: 01-10-[address] Deborah sam DO Work Phone: -[facility] Start: 01-10-2025 Non-patient / Non-visit Dr. Lavon french MD -[facility] Start: 01-09-2025 Non-patient / Non-visit Dr. Anshul fitzpatrick DO [facility] Work Phone: Start: 01-08-2025 Non-patient / Non-visit Dr. Anshul [facility] Work Phone: Start: 01-07-2025 Non-patient / Non-visit Dr. Anshul Worley [facility] Work Phone: Start: 01-06-2025 Non-patient / Non-visit Dr. Anshul Worley [facility] Work Phone: Start: 01-05-2025 Non-patient / Non-visit Dr. Anshul Worley [facility] Work Phone: Start: 01-04-2025 ambulatory Clark Almaraz Facility:[facility] Start: 01-04-2025 Non-patient / Non-visit Dr. Cass BOSTON -[facility] Start: 01-04-2025 Non-patient / Non-visit Dr. Anshul Worley [facility] Work Phone: Start: 01-04-2025 ambulatory No Primary Car e Physician Facility:[facility] Start: 01-04-2025 End: 01-10-2025 Evaluation and management of inpatient Dr. Anshul Lemus [facility] Work Phone: Start: 12-24-2024 End: 12-24-2024 Refill Yuval Gayle MD Work Phone: [facility] Comment on above: Refill Start: 12-17-2024 End: 12-17-2024 Letter encounter Yuval Gayle MD Work Phone: [facility] Card[facility] Start: 12-13-2024 End: 12-13-2024 Refill Sigrid PICKARD Work Phone: [facility] Comment on above: Refill Start: 12-02-2024 End: 12-02-2024 Orders Only Yuval Gayle MD Work Phone: [facility] Start: 11-21-2024 End: 11-26-2024 Refill Yuval Gayle MD Work Phone: [facility] Comment on above: Refill Start: 10-27-2024 End: 11-01-2024 ambulatory Radha Flores RN [facility] Care Management/Patient Access Start: 10-27-2024 End: 11-01-2024 Follow-up encounter Radha Flores RN [facility] Care Management/Patient Access Comment on above: Hospital follow-up; Transitional Care Management (HF DC 10/26/24) Start: 10-25-2024 Evaluation and manag ement of inpatient JIM STOCKTON Facility:[facility] Start: 10-24-2024 End: 10-24-2024 Letter encounter Yuval Gayle MD Work Phone: [facility] Start: 10-18-2024 End: 10-26-2024 Evaluation and management of inpatient ANSHUL LAIRD Facility:[facility] Start: 10-17-2024 Emergency department patient visit UNKNOWN PROVIDER Facility:[facility] Start: 10-17-2024 End: 10-26-2024 Evaluation and management of inpatient Phoebe Sanderson MD Work Phone: [facility] Comment on above: Pneumonia of right l ower lobe due to infectious organism (Primary Dx); Cardiogenic shock (HCC); Pneumonia due to infectious organism, unspecified laterality, unspecified part of lung; Tachycardia, unspecified; Unspecified right bundle-branch block; Abnormal electrocardiogram (ECG) (EKG); Abnormal electrocardiogram (ECG) (EKG); Unspecified right bundle-branch block; Nonspecific intraventricular block; Bradycardia, unspecified; Cardiomegaly; Left bundle-branch block, unspecified; Left bundle-branch block, unspecified; Acute kidney injury superimposed on stage 3b chronic kidney disease [N17.9, N18.32]; Acute on chronic HFrEF (heart failure with reduced ejection fraction) (HCC) [I50.23]; Hypokalemia [E87.6]; Hypomagnesemia [E83.42]; Acute deep vein thrombosis (DVT) of other vein of lower extremity, unspecified laterality (HCC) [I82.409]; Cirrhosis of liver without ascites, unspecified hepatic cirrhosis type (HCC) [K74.60]; Elevated liver enzymes; SOB (shortness of breath) Start: 10-13-2024 End: 10-13-2024 Emergency department patient visit Luis Eduardo Bernal DO Work Phone: [facility] Comment on above: Cough (Pt presents t o ed dt chronic cough non productive dry at night, intermittent abd pain (mid lower). -n/v, +d. -cp ) Start: 10-13-2024 End: 10-13-2024 ambulatory Yuval Gayle MD Work Phone: [facility] Comment on above: [facility] Start: 10-07-2024 End: 10-08-2024 ambulatory Radha Flores RN [facility] Care Management/Patient Access Start: 10-07-2024 End: 10-08-2024 Follow-up encounter Radha Flores RN [facility] Care Management/Patient Access Comment on above: Hospital follow-up ( HF DC 10/06/24); Transitional Care Management Start: 10-02-2024 Evaluation and manag ement of inpatient UNKNOWN PROVIDER Facility:[facility] Start: 10-02-2024 Evaluation and manag ement of inpatient UNKNOWN PROVIDER Facility:[facility] Start: 09-30-2024 End: 10-06-2024 Evaluation and management of inpatient MIGUEL ANGEL BLACKMAN Facility:[facility] Start: 09-30-2024 End: 09-30-2024 ambulatory UNKNOWN PROVIDER Facility:[facility] Start: 09-30-2024 Emergency department patient visit UNKNOWN PROVIDER Facility:[facility] Start: 09-30-2024 End: 10-06-2024 Evaluation and management of inpatient Vargas Berg MD Work Phone: [address] Comment on above: HFrEF (heart failure with reduced ejection fraction) (HCC) (Primary Dx); Pneumonia of right lower lobe due to infectious organism; Hypervolemia, unspecified hypervolemia type; Acute kidney injury superimposed on CKD (HCC); Tachycardia, unspecified; Nonspecific intraventricular block; Abnormal electrocardiogram (ECG) (EKG); Cardiogenic shock (HCC) [R57.0]; Acute deep vein thrombosis (DVT) of distal vein of lower extremity, unspecified laterality (HCC) Start: 09-30-2024 Emergency department patient visit UNKNOWN PROVIDER Facility:[facility] Start: 09-17-2024 End: 09-19-2024 ambulatory SHARI HIGGINS Facility:[id number] Start: 09-17-2024 End: 09-17-2024 Patient encounter procedure King Medina DO Work Phone: [facility] Comment on above: Chest pain, unspecif ied type (Primary Dx); Nausea vomiting and diarrhea Start: 09-17-2024 End: 09-18-2024 ambulatory UNKNOWN PROVIDER Facility:[facility] Start: 09-05-2024 End: 09-05-2024 Evaluation and management of inpatient YUVAL GAYLE Facility:[facility] Start: 09-04-2024 End: 09-04-2024 [facility] management [facility] Start: 09-02-2024 End: 09-02-2024 Evaluation and management of inpatient LANCE ENNIS Facility:[facility] Start: 09-01-2024 End: 09-01-2024 Evaluation and management of inpatient UNKNOWN PROVIDER Facility:[facility] Start: 09-01-2024 End: 09-11-2024 Evaluation and management of inpatient IP CARDIOLOGY HEART FAILURE CONSULT [facility] Start: 09-01-2024 Evaluation and manag ement of inpatient UNKNOWN PROVIDER Facility:[facility] Start: 08-31-2024 Emergency department patient visit UNKNOWN PROVIDER Facility:[facility] Start: 08-31-2024 End: 08-31-2024 ambulatory UNKNOWN PROVIDER Facility:[facility] Start: 08-27-2024 End: 08-27-2024 ambulatory UNKNOWN PROVIDER Facility:[facility] Start: 08-25-2024 End: 09-21-2024 Telephone encounter Dia Gaitan RN [facility] Cardiac Progressive Care Unit PCU 5W Comment on above: Heart Failure Outrea ch Start: 08-25-2024 End: 08-25-2024 Emergency department patient visit King Schaffer DO Work Phone: [facility] Comment on above: Elevated serum creat inine (Primary Dx); Elevated brain natriuretic peptide (BNP) level Start: 08-23-2024 End: 08-23-2024 Telephone encounter Manuela White [facility] Work Phone: [facility] Comment on above: Other (HFdEF) Start: 08-23-2024 End: 08-23-2024 Emergency department patient visit Joel Roa MD Work Phone: [facility] Comment on above: Biventricular conges tive heart failure (HCC) (Primary Dx); Generalized abdominal pain; Chest pain, unspecified type Start: 08-22-2024 End: 08-23-2024 Emergency department patient visit Facility:[facility] Start: 08-12-2024 End: 08-12-2024 Telephone encounter Christopher Tai MD Work Phone: [facility] Start: 08-09-2024 End: 08-20-2024 Evaluation and management of inpatient Joel Fernandes MD Work Phone: [facility] Cardiac Progressive Care Unit PCU 5W Start: 08-05-2024 End: 08-05-2024 Refill Sergei Astudillo MD Work Phone: [facility] Cardiology [facility] Start: 08-05-2024 End: 08-05-2024 Emergency department patient visit Dia Gaitan RN [facility] EMERGENCY DEPT Comment on above: SCHUYLER (acute kidney in jury) (HCC) (Primary Dx); Shortness of breath; Chest pain, unspecified type Start: 08-04-2024 End: 08-04-2024 Subsequent hospital visit by physician Armando Ecg [facility] Non-Invasive Cardiology Comment on above: Arrived Start: 08-04-2024 End: 08-04-2024 [facility] Start: 08-04-2024 End: 08-04-2024 Office outpatient visit 25 minutes Sergei Astudillo MD Work Phone: [facility] Comment on above: HFrEF (heart failure with reduced ejection fraction) (HCC) (Primary Dx); Essential hypertension; Acute deep vein thrombosis (DVT) of other specified vein of both lower extremities (HCC) Start: 08-04-2024 End: 08-04-2024 ambulatory SERGEI ASTUDILLO [facility] Start: 08-03-2024 End: 08-12-2024 Telephone encounter Dia Gaitan RN [facility] Cardiac Progressive Care Unit PCU 5W Start: 08-02-2024 End: 08-12-2024 Telephone encounter Kaitlin Gonzalez LPN [facility] Clinical Communication Comment on above: Hospital Follow-up Start: 07-23-2024 End: 07-30-2024 Evaluation and management of inpatient Bertha Pichardo DO Work Phone: [facility] Cardiac Progressive Care Unit PCU 2E Comment on above: Acute kidney injury (HCC) (Primary Dx); History of congestive heart failure; Bilateral lower extremity edema; SCHUYLER (acute kidney injury) (HCC) Start: 07-23-2024 End: 07-23-2024 Telephone encounter Morgan Ulloa CURRICULUM DIRECTOR - WHITING MACHINE OPERATOR Work Phone: [facility] Comment on above: Appointment Request Results (Worsening r enal function, hyperkalemia, heart failure) Start: 07-21-2024 End: 07-21-2024 ambulatory MORGAN ULLOA [facility] Start: 07-21-2024 End: 07-21-2024 Office outpatient visit 25 minutes Morgan Ulloa CURRICULUM DIRECTOR - WHITING MACHINE OPERATOR Work Phone: [facility] Comment on above: HFrEF (heart failure with reduced ejection fraction) (HCC) (Primary Dx); Acute HFrEF (heart failure with reduced ejection fraction) (HCC); Essential hypertension; Stage 3a chronic kidney disease (HCC); Noncompliance Start: 07-19-2024 End: 07-20-2024 Telephone encounter Kaitlin Gonzalez LPN [facility] Clinical Communication Comment on above: Hospital Follow-up Start: 07-16-2024 End: 07-16-2024 Orders Only Luma Joy CURRICULUM DIRECTOR - WHITING MACHINE OPERATOR Work Phone: [facility] Comment on above: Chronic systolic hea rt failure (HCC) (Primary Dx) Start: 07-13-2024 End: 07-13-2024 Emergency department patient visit JAMAL DIA [facility] Start: 07-11-2024 End: 07-16-2024 Evaluation and management of inpatient Donaldo Kenny MD Work Phone: [facility] Cardiac Progressive Care Unit PCU 2E Comment on above: NSTEMI (non-ST eleva monalisa myocardial infarction) (HCC) (Primary Dx); Abdominal pain, unspecified abdominal location; HFrEF (heart failure with reduced ejection fraction) (HCC); Cardiorenal syndrome with renal failure, stage 1-4 or unspecified chronic kidney disease, with heart failure (HCC); Biventricular heart failure (HCC); Chronic pulmonary embolism without acute cor pulmonale, unspecified pulmonary embolism type (HCC) Start: 07-07-2024 End: 07-07-2024 Office outpatient visit 25 minutes Alex Zhang MD Work Phone: [facility] Comment on above: Acute systolic heart failure (HCC) (Primary Dx); Essential hypertension; Chronic systolic heart failure (HCC); Chronic kidney disease, unspecified CKD stage Start: 07-07-2024 End: 07-07[facility]: 07-03-[facility]24 End: 07-05-2024 Evaluation and management of inpatient Kishore Alonso DO Work Phone: [facility] Cardiac Thoracic Vascular Intensive Care Unit CTV ICU T1 Comment on above: Acute kidney injury superimposed on CKD (HCC) (HCC) (Primary Dx); Transaminitis; History of CHF (congestive heart failure); HFrEF (heart failure with reduced ejection fraction) (HCC) Start: 07-01-2024 End: 07-01-2024 ambulatory [facility] Start: 07-01-2024 End: 07-01-2024 Office outpatient visit 25 minutes Alex Zhang MD Work Phone: [facility] Comment on above: Chronic systolic hea rt failure (HCC) (Primary Dx); Essential hypertension; Chronic kidney disease, unspecified CKD stage Start: 06-24-2024 End: 06-24-2024 [facility] Comment on above: Hospital Follow-up Start: 06-22-2024 End: 06-24-2024 Tele[facility] Comment on above: Hospital Follow-up Start: 06-13-2024 End: 06-21-2024 Evaluation and management of inpatient Joel Reyes MD Work Phone: [facility] Cardiac Progressive Care Unit PCU 2E Comment on above: Acute exacerbation o f chronic heart failure (HCC) (Primary Dx); Leg swelling; Elevated liver enzymes; Essential hypertension; Shortness of breath; Stage 3b chronic kidney disease (HCC); Pulmonary vascular congestion Start: 06-10-2024 End: 06-10-2024 Telephone encounter Morgan Ulloa CURRICULUM DIRECTOR - WHITING MACHINE OPERATOR Work Phone: [facility] Comment on above: Other Start: 06-08-2024 End: 06-08-2024 ambulatory [facility] Start: 06-08-2024 End: 06-08-2024 ambulatory [facility] Start: 06-08-2024 End: 06-08-2024 Office outpatient visit 25 minutes Morgan Ulloa CURRICULUM DIRECTOR - WHITING MACHINE OPERATOR Work Phone: [facility] Comment on above: Essential hypertensi on (Primary Dx); Congestive heart failure, unspecified HF chronicity, unspecified heart failure type (HCC); Elevated liver enzymes; Chronic kidney disease, unspecified CKD stage Start: 06-07-2024 End: 06-07-2024 Telephone encounter Jia Victor PA-C Work Phone: [facility] Comment on above: Other (Scheduling ) Start: 06-03-2024 End: 06-03-2024 Emergency department patient visit Lewis Alexander DO Work Phone: [facility] ED Comment on above: Edema of left lower extremity (Primary Dx) Start: 06-03-2024 End: 06-11-2024 Telephone encounter Kaitlin Gonzalez LPN [facility] Clinical Communication Comment on above: Hospital Follow-up Start: 06-02-2024 End: 06-07-2024 Telephone encounter Morgan Ulloa CURRICULUM DIRECTOR - WHITING MACHINE OPERATOR Work Phone: [facility] Comment on above: Other (Returning alesia l) Start: 05-30-2024 End: 06-07-2024 Telephone encounter Lizzette Burger CURRICULUM DIRECTOR - WHITING MACHINE OPERATOR Work Phone: [facility] Cardiology - [facility] Mann Comment on above: Appointment Request Start: 05-28-2024 End: 06-01-2024 Evaluation and management of inpatient Izaiah Martins MD Work Phone: [facility] Cardiac Progressive Care Unit PCU 2E Comment on above: Metabolic acidosis ( Primary Dx); HFrEF (heart failure with reduced ejection fraction) (HCC); Acute cholecystitis without calculus Start: 05-05-2024 End: 05-31-2024 Telephone encounter Dia Gaitan RN [facility] Cardiac Progressive Care Unit PCU 5W Comment on above: Care Coordination Start: 04-30-2024 End: 05-11-2024 Telephone encounter Sergei Astudillo MD Work Phone: [facility] [place] Comment on above: Chest Pain Start: 04-29-2024 End: 04-29-2024 Telephone encounter Dia Gaitan RN [facility] Cardiac Progressive Care Unit PCU 5W Comment on above: Care Coordination Start: 04-28-2024 End: 04-28-2024 Subsequent hospital visit by physician [facility] Exam Room [address] [facility] [address] Comment on above: Arrived Start: 04-28-2024 End: 04-28-2024 Emergency department patient visit JUAN CARLOS LE [facility] Start: 04-28-2024 End: 04-28-2024 ambulatory ALONZO AGUILAR [facility] Start: 04-28-2024 End: 04-28-2024 Subsequent hospital visit by physician Kamaljit Ecg [facility] Stress Comment on above: Arrived Start: 04-28-2024 End: 04-28-2024 Emergency department patient visit Juan Carlos Le MD Work Phone: [facility] Clinical Decision Unit CDU Comment on above: Pulmonary vascular c ongestion (Primary Dx); Chest pain, unspecified type; Acute cough; Sore throat; Positive D dimer; Congestive heart failure, unspecified HF chronicity, unspecified heart failure type (HCC); Orthopnea; Short of breath on exertion Start: 04-27-2024 End: 04-27-2024 Telephone encounter Dia Gaitan RN [facility] Cardiac Progressive Care Unit PCU 5W Comment on above: Care Coordination Ou treach Start: 03-16-2024 End: 03-17-2024 Telephone encounter Jeffrey Conklin MD Work Phone: [facility]iology - [place] Comment on above: Med Management Start: 03-08-2024 End: 03-16-2024 Telephone encounter Dia Gaitan RN [facility] Cardiac Progressive Care Unit PCU 5W Comment on above: Care Coordination Start: 03-05-2024 End: 03-05-2024 [facility] Start: 03-05-2024 End: 03-05-2024 Subsequent hospital visit by physician [facility] Ct Exam Room [address] [facility] [address] Comment on above: Arrived Start: 03-05-2024 End: 03-05-2024 Subsequent hospital visit by physician [facility] Xr Portable [facility] Radiology Comment on above: Arrived Start: 03-05-2024 End: 03-05-2024 Emergency department patient visit [facility] Start: 03-05-2024 End: 03-07-2024 Evaluation and management of inpatient Shane Stern MD Work Phone: [facility] Cardiac Progressive Care Unit PCU 2E Comment on above: Shortness of breath (Primary Dx); Acute on chronic congestive heart failure, unspecified heart failure type (HCC); Hypoxia; Pleural effusion Start: 03-02-2024 End: 03-04-2024 Telephone encounter Kaitlin Gonzalez LPN [facility] Clinical Communication Comment on above: Hospital Follow-up Start: 02-28-2024 End: 02-28-2024 Subsequent hospital visit by physician [facility] Ct Exam Room [address] [facility] [address] Comment on above: Arrived Start: 02-28-2024 End: 02-28-2024 Emergency department patient visit JUAN CARLOS LE [facility] Start: 02-28-2024 End: 03-01-2024 Evaluation and management of inpatient Vic Loaiza MD Work Phone: [facility] Cardiac Progressive Care Unit PCU 2E Comment on above: Shortness of breath (Primary Dx); Congestive heart failure, unspecified HF chronicity, unspecified heart failure type (HCC); Positive D dimer; Chest pain, unspecified type; Hypertension, unspecified type Procedures Date Procedure Procedure Detail Performing Clinician Start: 01-10-[address] Deborah Penaloza DO Work Phone: Start: 01-04-[address] Deborah Penaloza DO Work Phone: Start: 01-04-[address] Deborah Penaloza DO Work Phone: Start: 01-04-2025 X-ray of chest, PA a nd lateral views Dr. Deborah Penaloza DO Work Phone: Start: 10-25-2024 Radiologic exam ches t single view Anshul Laird CURRICULUM DIRECTOR-WHITING MACHINE OPERATOR Work Phone: Start: 10-25-2024 Assay of magnesium Rosier angie Mckeon CURRICULUM DIRECTOR-WHITING MACHINE OPERATOR Work Phone: Start: 10-25-2024 Hepatic function panel Leathanasim Mckeon CURRICULUM DIRECTOR-WHITING MACHINE OPERATOR Work Phone: Start: 10-21-2024 Assay of magnesium Rosier angie Mckeon CURRICULUM DIRECTOR-WHITING MACHINE OPERATOR Work Phone: Start: 10-21-2024 Hepatic function panel Leatha Mckeon CURRICULUM DIRECTOR-WHITING MACHINE OPERATOR Work Phone: Start: 10-20-2024 Assay of lactate Larry Myers DO Work Phone: Start: 10-20-2024 Hepatic function panel Leatha Mckeon CURRICULUM DIRECTOR-WHITING MACHINE OPERATOR Work Phone: Start: 10-20-2024 Ecg routine ecg w/le ast 12 lds trcg only w/o i&r Leatha Wolfeerika CURRICULUM DIRECTOR-WHITING MACHINE OPERATOR Work Phone: Start: 10-18-2024 Smr prim src gram/gi emsa stain bct fungi/cell Christopher Banegas DO Work Phone: Start: 10-18-2024 Assay of lactate Christopher cruz DO Work Phone: Start: 10-18-2024 Hepatic function panel Christopher Banegas DO Work Phone: Start: 10-18-2024 Assay of lactate Maurice farrell MD Work Phone: Start: 10-18-2024 Assay of lactate Maurice farrell MD Work Phone: Start: 10-17-2024 Assay of troponin quantitative Phoebe Sanderson MD Work Phone: Start: 10-17-2024 Radiologic exam ches t single view Vic Sandhu MD Work Phone: Start: 10-17-2024 Assay of magnesium Aust in Tena [place] Work Phone: Start: 10-17-2024 NT PRO-BNP Vic blair MD Work Phone: Start: 10-17-2024 Ecg routine ecg w/le ast 12 lds trcg only w/o i&r To Be Assigned Start: 10-13-2024 Radiologic exam ches t 2 views Luis Eduardo Bernal DO Work Phone: Start: 10-13-2024 COVID/INFLUENZA Luis Eduardo Bernal DO Work Phone: Start: 10-06-2024 Assay of lactate Dominic Chacko MD Work Phone: Start: 10-05-2024 Assay of lactate Izaiah Rondon DO Work Phone: Start: 10-02-2024 End: 10-02-2024 Radiologic exam chest single view Steven Laguna MD Work Phone: Start: 10-02-2024 Assay of lactate Suellen Green DO Work Phone: Start: 10-01-2024 Assay of lactate Harris vera MD Work Phone: Start: 10-01-2024 Hemoglobin glycosylated a1c Quiana Holbrook MD Work Phone: Start: 10-01-2024 Lipid 1996 panel - S polly or Plasma Mallika Quiles [facility] Work Phone: Start: 09-30-2024 Assay of lactate Vargas Berg MD Work Phone: Start: 09-30-2024 Culture bacterial bl ood aerobic w/id isolates Vargas Berg MD Work Phone: Start: 09-30-2024 End: 09-30-2024 Assay of lactate Vargas Berg MD Work Phone: Start: 09-30-2024 Radiologic exam ches t single view Vargas Berg MD Work Phone: Start: 09-30-2024 Ct abdomen & pelvis w/o contrast material Vargas Berg MD Work Phone: Start: 09-30-2024 Blood gases any comb ination ph pco2 po2 co2 hco3 Vargas Berg MD Work Phone: Start: 09-30-2024 End: 09-30-2024 Assay of lactate Vargas Berg MD Work Phone: Start: 09-30-2024 COVID/INFLUENZA Vargas bustamante MD Work Phone: Start: 09-30-2024 Hepatic function panel Vargas Berg MD Work Phone: Start: 09-30-2024 Ecg routine ecg w/le ast 12 lds trcg only w/o i&r To Be Assigned Start: 08-27-2024 Lipid 1996 panel - S polly or Plasma King Medina DO Work Phone: Start: 08-25-2024 End: 08-25-2024 Comprehensive metabolic panel King Schaffer DO Work Phone: Start: 08-25-2024 Ecg routine ecg w/le ast 12 lds trcg only w/o i&r King Schaffer DO Work Phone: Start: 08-25-2024 Radiologic exam ches t single view King Shaffer Brianbruce DO Work Phone: Start: 08-23-2024 Ct abdomen & pelvis w/o contrast material Joel Roa MD Work Phone: Start: 08-23-2024 Radiologic exam ches t single view Joel Roa MD Work Phone: Start: 08-23-2024 Ecg routine ecg w/le ast 12 lds trcg only w/o i&r Joel Roa MD Work Phone: Start: 08-20-2024 Comprehensive metabo lic panel Edgar Celaya MD Work Phone: Start: 08-19-2024 Basic metabolic pane l calcium total Saul Briones MD Work Phone: Start: 08-19-2024 Comprehensive metabo lic panel Edgar Celaya MD Work Phone: Start: 08-18-2024 Comprehensive metabo lic panel Edgar Celaya MD Work Phone: Start: 08-17-2024 Comprehensive metabo lic panel Edgar Celaya MD Work Phone: Start: 08-16-2024 Comprehensive metabo lic panel Luis Zavaleta PA-C Work Phone: Start: 08-15-2024 Comprehensive metabo lic panel Edgar Celaya MD Work Phone: Start: 08-14-2024 Comprehensive metabo lic panel Edgar Celaya MD Work Phone: Start: 08-13-2024 Comprehensive metabo lic panel Edgar Celaya MD Work Phone: Start: 08-12-2024 Assay of lactate Vineet Sánchez MD Work Phone: Start: 08-12-2024 Natriuretic peptide Mckayla Carlisle PA-C Work Phone: Start: 08-12-2024 Comprehensive metabo lic panel Edgar Celaya MD Work Phone: Start: 08-11-2024 Drug tst prsmv instr mnt chem analyzers pr date Edgar Celaya MD Work Phone: Start: 08-11-2024 Urinalysis complete panel - Urine Dasha Lyn MD Work Phone: Start: 08-11-2024 Urnls dip stick/tabl et rgnt auto w/o microscopy Dasha Lyn MD Work Phone: Start: 08-11-2024 Echo tthrc r-t 2d w/wom-mode compl spec&colr d Dasha Lyn MD Work Phone: Start: 08-11-2024 Radiologic exam ches t single view Dasha Lyn MD Work Phone: Start: 08-11-2024 Blood gases any comb ination ph pco2 po2 co2 hco3 Dasha Lyn MD Work Phone: Start: 08-11-2024 Comprehensive metabo lic panel Dasha Lyn MD Work Phone: Start: 08-10-2024 Us retroperitoneal r eal time w/image complete Dasha Lyn MD Work Phone: Start: 08-10-2024 Ecg routine ecg w/le ast 12 lds trcg only w/o i&r Dasha Lyn MD Work Phone: Start: 08-09-2024 Comprehensive metabo lic panel Joel Fernandes MD Work Phone: Start: 08-09-2024 Radiologic exam ches t single view Joel Fernandes MD Work Phone: Start: 08-09-2024 Ecg routine ecg w/le ast 12 lds trcg only w/o i&r Joel Fernandes MD Work Phone: Start: 08-05-2024 Assay of troponin quantitative Angel Luis Mejia CURRICULUM DIRECTOR - WHITING MACHINE OPERATOR Work Phone: Start: 08-05-2024 Ecg routine ecg w/le ast 12 lds trcg only w/o i&r Ashtyn Miles CURRICULUM DIRECTOR - WHITING MACHINE OPERATOR Work Phone: Start: 08-05-2024 Basic metabolic pane l calcium total Angel Luis Mejia CURRICULUM DIRECTOR - WHITING MACHINE OPERATOR Work Phone: Start: 08-05-2024 Radiologic exam ches t 2 views Angel Luis Mejia CURRICULUM DIRECTOR - WHITING MACHINE OPERATOR Work Phone: Start: 08-04-2024 Ecg routine ecg w/le ast 12 lds trcg only w/o i&r Jamal Dia MD Work Phone: Start: 08-04-2024 Follow-up visit [facility] Start: 07-30-2024 Basic metabolic pane l calcium total Lilibeth Darya CURRICULUM DIRECTOR - WHITING MACHINE OPERATOR Work Phone: Start: 07-29-2024 Comprehensive metabo lic panel Berenice Varela Rosenthal CURRICULUM DIRECTOR - WHITING MACHINE OPERATOR Work Phone: Start: 07-28-2024 Comprehensive metabo lic panel Berenice Varela Rosenthal CURRICULUM DIRECTOR - WHITING MACHINE OPERATOR Work Phone: Start: 07-27-2024 Comprehensive metabo lic panel Berenice M Ariadna CURRICULUM DIRECTOR - WHITING MACHINE OPERATOR Work Phone: Start: 07-26-2024 Comprehensive metabo lic panel Berenice Nichole Ariadna CURRICULUM DIRECTOR - WHITING MACHINE OPERATOR Work Phone: Start: 07-24-2024 End: 07-24-2024 Basic metabolic panel calcium total Rafa Samuel MD Work Phone: Start: 07-23-2024 Assay of thyroid stimulating hormone tsh Rafa Earl [place] Work Phone: Start: 07-23-2024 Basic metabolic pane l calcium total Dayna Alvarenga PA-C Work Phone: Start: 07-23-2024 Radiologic exam ches t single view Dayna Alvarenga PA-C Work Phone: Start: 07-23-2024 Ecg routine ecg w/le ast 12 lds trcg only w/o i&r Bertha Pichardo DO Work Phone: Start: 07-21-2024 Follow-up visit [facility] Start: 07-16-2024 Radiologic exam abdo men 1 view Lilibeth Darya CURRICULUM DIRECTOR - WHITING MACHINE OPERATOR Work Phone: Start: 07-16-2024 Comprehensive metabo lic panel Lilibeth Darya CURRICULUM DIRECTOR - WHITING MACHINE OPERATOR Work Phone: Start: 07-15-2024 Basic metabolic pane l calcium total Rafa Earl MD Work Phone: Start: 07-14-2024 Comprehensive metabo lic panel Rafa Samuel MD Work Phone: Start: 07-13-2024 Ecg routine ecg w/le ast 12 lds trcg only w/o i&r Sherri Jeter MD Work Phone: Start: 07-13-2024 Basic metabolic pane l calcium total Rafa Earl [place] Work Phone: Start: 07-12-2024 Basic metabolic pane l calcium total Rafa Samuel MD Work Phone: Start: 07-12-2024 Comprehensive metabo lic panel Rafa Samuel MD Work Phone: Start: 07-12-2024 End: 07-12-2024 Assay of thyroid stimulating hormone tsh Rafa Samuel MD Work Phone: Start: 07-11-2024 Ct abdomen & pelvis w/contrast material Maritza Jones DO Work Phone: Start: 07-11-2024 Ecg routine ecg w/le ast 12 lds trcg only w/o i&r Donaldo Kenny MD Work Phone: Start: 07-11-2024 End: 07-11-2024 Thromboplastin time partial plasma/whole blood Rafa Samuel MD Work Phone: Start: 07-11-2024 Basic metabolic pane l calcium total Maritza Jones DO Work Phone: Start: 07-11-2024 Radiologic exam ches t single view Maritza Lambing DO Work Phone: Start: 07-11-2024 Ecg routine ecg w/le ast 12 lds trcg only w/o i&r Maritza Lambing DO Work Phone: Start: 07-07-2024 Ecg routine ecg w/le ast 12 lds w/i&r Alex Zhang MD Work Phone: Start: 07-07-2024 Follow-up visit [facility] Start: 07-04-2024 End: 07-04-2024 Basic metabolic panel calcium total Roopa Lugo DO Work Phone: Start: 07-04-2024 Comprehensive metabo lic panel Jamey Murguia DO Work Phone: Start: 07-03-2024 Creatinine other source Jamey Murguia DO Work Phone: Start: 07-03-2024 Assay of lactate Vineet Sánchez MD Work Phone: Start: 07-03-2024 Assay of lactate Vineet Sánchez MD Work Phone: Start: 07-03-2024 Blood gases any comb ination ph pco2 po2 co2 hco3 Meek Dover PA-C Work Phone: Start: 07-03-2024 Urinalysis complete panel - Urine Meek Dover PA-C Work Phone: Start: 07-03-2024 Urnls dip stick/tabl et reagent auto microscopy Meek Dover PA-C Work Phone: Start: 07-03-2024 Assay of troponin quantitative Meek Dover PA-C Work Phone: Start: 07-03-2024 Us abdominal real ti me w/image limited Meek Dover PA-C Work Phone: Start: 07-03-2024 Comprehensive metabo lic panel Meek Dover PA-C Work Phone: Start: 07-03-2024 Ct abdomen & pelvis w/o contrast material Meek Dover PA-C Work Phone: Start: 07-03-2024 Radiologic exam ches t single view Meek Dover PA-C Work Phone: Start: 07-03-2024 Ecg routine ecg w/le ast 12 lds trcg only w/o i&r Kishore Zayrakola DO Work Phone: Start: 07-01-2024 Ecg routine ecg w/le ast 12 lds w/i&r Alex Zhang MD Work Phone: Start: 07-01-2024 Follow-up visit [facility] Start: 06-20-2024 Basic metabolic pane l calcium total Sergei Mcguire Exec Work Phone: Start: 06-19-2024 Radiologic exam ches t 2 views Angel Luis Lassiter MD Work Phone: Start: 06-18-2024 Basic metabolic pane l calcium total Serg Celaya MD Work Phone: Start: 06-17-2024 Ecg routine ecg w/le ast 12 lds trcg only w/o i&r Sherri Jeter MD Work Phone: Start: 06-17-2024 Cardiac catheterizat ion study Gaby Marcano CURRICULUM DIRECTOR - WHITING MACHINE OPERATOR Work Phone: Start: 06-17-2024 End: 06-17-2024 POCT O2 SATURATION Sergei Mcguire Exec Work Phone: Start: 06-16-2024 Basic metabolic pane l calcium total Maritza Linn CURRICULUM DIRECTOR - WHITING MACHINE OPERATOR Work Phone: Start: 06-15-2024 Echo tthrc r-t 2d w/wom-mode compl spec&colr d Angel Luis Morales MD Work Phone: Start: 06-15-2024 Chloride urine Maritza Linn CURRICULUM DIRECTOR - WHITING MACHINE OPERATOR Work Phone: Start: 06-15-2024 Urinalysis complete panel - Urine Maritza Linn CURRICULUM DIRECTOR - WHITING MACHINE OPERATOR Work Phone: Start: 06-15-2024 Urine albumin quantitative Maritza Linn CURRICULUM DIRECTOR - WHITING MACHINE OPERATOR Work Phone: Start: 06-15-2024 Urnls dip stick/tabl et rgnt auto w/o microscopy Maritza Linn CURRICULUM DIRECTOR - WHITING MACHINE OPERATOR Work Phone: Start: 06-15-2024 Comprehensive metabo lic panel Rafa Samuel MD Work Phone: Start: 06-14-2024 Ct abdomen & pelvis w/o contrast material Serg Celaya MD Work Phone: Start: 06-14-2024 Dup-scan xtr veins c omplete bilateral study Serg Celaya MD Work Phone: Start: 06-14-2024 Basic metabolic pane l calcium total Serg Celaya MD Work Phone: Start: 06-14-2024 Lipid panel Serg Torrez Work Phone: Start: 06-14-2024 Lipid 1996 panel - S polly or Plasma Joel Reyes MD Work Phone: Start: 06-13-2024 Basic metabolic pane l calcium total Serg Celaya MD Work Phone: Start: 06-13-2024 Assay of magnesium Serg Celaya MD Work Phone: Start: 06-13-2024 Comprehensive metabo lic panel Jono Dubois Exec Work Phone: Start: 06-13-2024 Radiologic exam ches t single view Jono Dubois Exec Work Phone: Start: 06-13-2024 Ecg routine ecg w/le ast 12 lds trcg only w/o i&r Jono Dubois Exec Work Phone: Start: 06-08-2024 Basic metabolic pane l calcium total Morgan Ulloa CURRICULUM DIRECTOR - WHITING MACHINE OPERATOR Work Phone: Start: 06-08-2024 Ecg routine ecg w/le ast 12 lds trcg only w/o i&r Sergei Astudillo MD Work Phone: Start: 06-08-2024 Follow-up visit [facility] Start: 06-01-2024 Comprehensive metabo lic panel Mary Ellen Brito MD Work Phone: Start: 06-01-2024 Mri abdomen w/o cont rast material Anna LANGSTON Work Phone: Start: 05-31-2024 Us abdominal real ti me w/image documentation Lizzette Burger CURRICULUM DIRECTOR - WHITING MACHINE OPERATOR Work Phone: Start: 05-30-2024 End: 05-30-2024 Comprehensive metabolic panel Mary Ellen Brito MD Work Phone: Start: 05-29-2024 Us retroperitoneal r eal time w/image complete Maritza Linn [facility] Work Phone: Start: 05-29-2024 Comprehensive metabo lic panel Mary Ellen Brito MD Work Phone: Start: 05-28-2024 Chloride urine Maritza Linn [facility] Work Phone: Start: 05-28-2024 Urinalysis complete panel - Urine Maritza Linn [facility] Work Phone: Start: 05-28-2024 Urnls dip stick/tabl et reagent auto microscopy [facility] Work Phone: Start: 05-28-2024 Basic metabolic pane l calcium total Maritza Linn [facility] Work Phone: Start: 05-28-2024 Radiologic exam ches t single view Izaiah Martins MD Work Phone: Start: 05-28-2024 Ecg routine ecg w/le ast 12 lds i&r only Izaiah Martins MD Work Phone: Start: 05-28-2024 End: 05-28-2024 Basic metabolic panel calcium total Izaiah Martins MD Work Phone: Start: 05-28-2024 Blood gases any comb ination ph pco2 po2 co2 hco3 Izaiah Martins MD Work Phone: Start: 04-28-2024 Smr prim src gram/gi emsa stain bct fungi/cell Thapasya S Rein [facility] Work Phone: Start: 04-28-2024 Ecg routine ecg w/le ast 12 lds trcg only w/o i&r Alonzo Aguilar MD Work Phone: Start: 04-28-2024 Assay of troponin quantitative Nadeem Loaiza Rein CURRICULUM DIRECTOR - WHITING MACHINE OPERATOR Work Phone: Start: 04-28-2024 Iaadiadoo not otherw ise specified Nadeem Loaiza Rein CURRICULUM DIRECTOR - WHITING MACHINE OPERATOR Work Phone: Start: 04-28-2024 Assay of troponin quantitative Juan Carlos Le MD Work Phone: Start: 04-28-2024 Ct angiography chest w/contrast/noncontrast Juan Carlos Le MD Work Phone: Start: 04-28-2024 Radiologic exam ches t 2 views Juan Carlos Le MD Work Phone: Start: 04-28-2024 Iadna streptococcus group a amplified probe tq Juan Carlos Le MD Work Phone: Start: 04-28-2024 Respiratory pathogen s DNA and RNA panel - Nasopharynx by DEENA with non-probe detection Nadeem Khan CURRICULUM DIRECTOR - [facility] Work Phone: Start: 04-28-2024 SARS-COV-2, FLU A/B, AND RSV COMBO Juan Carlos Le MD Work Phone: Start: 04-28-2024 Basic metabolic pane l calcium total Juan Carlos Le MD Work Phone: Start: 04-28-2024 Ecg routine ecg w/le ast 12 lds trcg only w/o i&r Juan Carlos Le MD Work Phone: Start: 03-07-2024 Basic metabolic pane l calcium total Guadalupe Celaya MD Work Phone: Start: 03-06-2024 Basic metabolic pane l calcium total Guadalupe Celaya MD Work Phone: Start: 03-06-2024 Ecg routine ecg w/le ast 12 lds trcg only w/o i&r Guadalupe Celaya MD Work Phone: Start: 03-05-2024 Ct angiography chest w/contrast/noncontrast Shane Stern MD Work Phone: Start: 03-05-2024 Radiologic exam ches t single view Shane Stern MD Work Phone: Start: 03-05-2024 Basic metabolic pane l calcium total Shane Stern MD Work Phone: Start: 03-05-2024 SARS-COV-2, FLU A/B, AND RSV COMBO Shane Stern MD Work Phone: Start: 03-05-2024 Ecg routine ecg w/le ast 12 lds trcg only w/o i&r Shane Stern MD Work Phone: Start: 03-01-2024 Hemoglobin glycosylated a1c Mary Ellen Brito MD Work Phone: Start: 03-01-2024 Basic metabolic pane l calcium total Sherri Jeter MD Work Phone: Start: 02-29-2024 TTE w or wo fol wcon,Doppler Sherri Jeter MD Work Phone: Start: 02-29-2024 OXYGEN THERAPY Juan Carlos Le MD Work Phone: Start: 02-29-2024 Basic metabolic pane l calcium total Sherri Jeter MD Work Phone: Start: 02-29-2024 Lipid panel Sherri zuñiga MD Work Phone: Start: 02-29-2024 Lipid 1996 panel - S polly or Plasma Vic Loaiza MD Work Phone: Start: 02-28-2024 Basic metabolic pane l calcium total Radha Parikh MD Work Phone: Start: 02-28-2024 OXYGEN THERAPY Juan Carlos Le MD Work Phone: Start: 02-28-2024 Ct angiography chest w/contrast/noncontrast Juan Carlos Le MD Work Phone: Start: 02-28-2024 OXYGEN THERAPY Juan Carlos Le MD Work Phone: Start: 02-28-2024 Radiologic exam ches t single view Vic Loaiza MD Work Phone: Start: 02-28-2024 SARS-COV-2, FLU A/B, AND RSV COMBO Vic Loaiza MD Work Phone: Start: 02-28-2024 Comprehensive metabo lic panel Vic Loaiza MD Work Phone: Start: 02-28-2024 Ecg routine ecg w/le ast 12 lds trcg only w/o i&r Vic Loaiza MD Work Phone: Plan of Treatment Date Care Activity Detail Author Start: 2053 RSV Immunization for Adults (1 - 1-dose 75+ series) RSV Immunization for Adults (1 - 1-dose 75+ series) [facility] Start: 2053 [facility] Start: 2038 RSV Immunization aged 60 or older (1 - 1-dose 60+ series) RSV Immunization aged 60 or older (1 - 1-dose 60+ series) [facility] Start: 10-01-2029 Lipid panel [facility] Start: 08-27-2029 Lipid panel [facility] Start: 06-14-2029 Lipid panel [facility] Start: 02-28-2029 Lipid panel Lipid Panel [facility] Start: 02-14-2028 Shingles (RZV) Vaccine (1 of 2) Shingles (RZV) Vaccine (1 of 2) [facility] Start: 02-14-2028 Zoster Vaccines (1 of 2) Zoster Vaccines (1 of 2) [facility] Start: 02-14-2028 [facility] Start: 01-21-2028 Diabetes Screening Diabetes Screening [facility] Start: 09-10-2027 Diabetes Screening Diabetes Screening [facility] Start: 03-01-2027 Diabetes mellitus screening Diabetes Screening [facility] Start: 01-20-2026 Complete blood count Hemoglobin/Hematocrit [facility] Start: 01-20-2026 Creatinine measurement Serum Creatinine [facility] Start: 10-25-2025 Creatinine measurement Basic Metabolic Panel [facility] Start: 10-21-2025 Creatinine measurement Basic Metabolic Panel [facility] Start: 10-06-2025 Creatinine measurement Basic Metabolic Panel [facility] Start: 10-01-2025 Hemoglobin A1c measurement Hemoglobin A1C [facility] Start: 08-25-2025 Creatinine measurement Creatinine Level [facility] Start: 08-25-2025 Potassium measurement Potassium Level [facility] Start: 08-20-2025 Creatinine measurement [facility] Start: 08-20-2025 Potassium measurement [facility] Start: 08-19-2025 Creatinine measurement Creatinine Level [facility] Start: 08-19-2025 Potassium measurement Potassium Level [facility] Start: 08-12-2025 Creatinine measurement Creatinine Level [facility] Start: 08-12-2025 Potassium measurement Potassium Level [facility] Start: 08-11-2025 Echocardiography Echocardiogram [facility] Start: 08-11-2025 [facility] Start: 08-05-2025 Creatinine measurement Creatinine Level [facility] Start: 08-05-2025 Potassium measurement Potassium Level [facility] Start: 07-30-2025 Creatinine measurement Creatinine Level [facility] Start: 07-30-2025 Potassium measurement Potassium Level [facility] Start: 07-21-2025 Creatinine measurement Creatinine Level [facility] Start: 07-21-2025 Potassium measurement Potassium Level [facility] Start: 07-16-2025 Creatinine measurement Creatinine Level [facility] Start: 07-16-2025 Potassium measurement Potassium Level [facility] Start: 07-04-2025 Creatinine measurement Creatinine Level [facility] Start: 07-04-2025 Potassium measurement Potassium Level [facility] Start: 06-20-2025 Creatinine measurement Creatinine Level [facility] Start: 06-20-2025 Potassium measurement Potassium Level [facility] Start: 06-15-2025 Echocardiography Echocardiogram [facility] Start: 06-08-2025 Creatinine measurement Creatinine Level [facility] Start: 06-08-2025 Potassium measurement Potassium Level [facility] Start: 06-01-2025 Creatinine measurement Creatinine Level [facility] Start: 06-01-2025 Potassium measurement Potassium Level [facility] Start: 05-30-2025 Creatinine measurement Creatinine Level [facility] Start: 05-30-2025 Potassium measurement Potassium Level [facility] Start: 04-28-2025 Creatinine measurement Creatinine Level [facility] Start: 04-28-2025 Potassium measurement Potassium Level [facility] Start: 03-30-2025 Influenza vaccination Influenza Vaccine (#1) [facility] Start: 03-07-2025 Creatinine measurement Creatinine Level [facility] Start: 03-07-2025 Potassium measurement Potassium Level [facility] Start: 03-05-2025 Creatinine measurement Creatinine Level [facility] Start: 03-05-2025 Potassium measurement Potassium Level [facility] Start: 03-04-2025 Liver Imaging (Hepatocellular Carcinoma Screening) Liver Imaging (Hepatocellular Carcinoma Screening) [facility] Start: 03-01-2025 Creatinine measurement Creatinine Level [facility] Start: 03-01-2025 Diabetes mellitus screening [facility] Start: 03-01-2025 Potassium measurement Potassium Level [facility] Start: 02-28-2025 Creatinine measurement Creatinine Level [facility] Start: 02-28-2025 Echocardiography Echocardiogram [facility] Start: 02-28-2025 Influenza vaccination Influenza Vaccine (#1) [facility] Start: 02-28-2025 Potassium measurement Potassium Level [facility] Start: 01-10-2025 Patient discharge [facility] Start: 01-08-2025 Palliative care [facility] Start: 01-07-2025 Referral to radar engineer [facility] Start: 01-05-2025 Prothrombin time [facility] Start: 01-04-2025 Following clinical pathway protocol [facility] Start: 01-04-2025 Ambulation without limitation [facility] Start: 01-04-2025 Assessment of risk of venous thromboembolism [facility] Start: 01-04-2025 Elevation of affected extremity [facility] Start: 01-04-2025 Insertion of catheter into peripheral vein [facility] Start: 01-04-2025 Measuring intake and output [facility] Start: 01-04-2025 Notification of physician [facility] Start: 01-04-2025 Patient education [facility] Start: 01-04-2025 Patient referral to dietitian [facility] Start: 01-04-2025 Providing care according to standard [facility] Start: 01-04-2025 [facility] Start: 01-04-2025 Verification routine [facility] Start: 01-04-2025 Admission procedure [facility] Start: 01-04-2025 [facility] Start: 01-04-2025 Patient referral to dietitian [facility] Start: 11-17-2024 End: 11-17-2024 Patient encounter procedure 11/17/2024 2:20 PM EDT Office Visit [facility] [address] [place] [address] Disha Brenner MD [address] [place] [id number] [facility] Start: 11-12-2024 End: 11-12-2024 Patient encounter procedure 11/12/2024 8:40 AM EDT Office Visit [facility] [address] [place] [phone] Jamal Geronimo MD [address] [place] [id number] [facility] Start: 11-05-2024 End: 11-05-2024 Patient encounter procedure 11/05/2024 8:40 AM EDT Office Visit [facility] [address] [place] [id number] Jamal Geronimo MD [address] [place] [phone] [facility] Start: 10-28-2024 End: 04-27-2025 Assay of magnesium MAGNESIUM Lab Routine Acute kidney injury superimposed on stage 3b chronic kidney disease [N17.9, N18.32] Expected: 10/28/2024, Expires: 04/27/2025 [facility] Comment on above: Expected: 10/28/2024, Expires: Start: 10-28-2024 End: 04-27-2025 Basic metabolic 2000 panel - Serum or Plasma BASIC METABOLIC PANEL Lab Routine Acute kidney injury superimposed on stage 3b chronic kidney disease [N17.9, N18.32] Expected: 10/28/2024, Expires: 04/27/2025 [facility] Comment on above: Expected: 10/28/2024, Expires: Start: 10-28-2024 End: 04-27-2025 CBC W Auto Differential panel - Blood COMPLETE BLOOD COUNT W/DIFF Lab Routine SOB (shortness of breath) Expected: 10/28/2024, Expires: 04/27/2025 [facility] Comment on above: Expected: 10/28/2024, Expires: Start: 10-28-2024 End: 04-27-2025 Hepatic function panel HEPATIC FUNCTION PANEL Lab Routine Elevated liver enzymes Expected: 10/28/2024, Expires: 04/27/2025 [facility] Comment on above: Expected: 10/28/2024, Expires: Start: 10-18-2024 End: 10-18-2024 Patient encounter procedure 10/18/2024 10:00 AM EDT Office Visit [facility] [address] [place] [address] Cristy Luque, CURRICULUM DIRECTOR-WHITING MACHINE OPERATOR [address] [place] [address] [facility] Start: 09-10-2024 End: 09-10-2024 Patient encounter procedure 09/10/2024 11:00 AM EDT Office Visit [facility] [place] [address] [facility] [address] [place] [phone] Morgan Ulloa, CURRICULUM DIRECTOR - WHITING MACHINE OPERATOR [address] [facility], [address] [place] [address] [facility] [place] Start: 09-02-2024 End: 09-02-2024 ambulatory [facility] [place] Start: 09-02-2024 End: 09-02-2024 Patient encounter procedure 09/02/2024 11:30 AM EST Office Visit [facility] - [place] [address] [place] [phone] Sergei Astudillo MD [address] [place] [address] [facility] [place] Start: 08-30-2024 End: 07-01-2026 US Heart Transthoracic Transthoracic echocardiogram (TTE) limited with contrast, bubble, strain, and 3D PRN CV Echocardiography Routine Chronic systolic heart failure (HCC) Expected: 08/30/2024 (Approximate), Expires: 07/01/2026 [employer] Work Phone: Comment on above: Expected: 08/30/2024 (Approximate), Expi res: 07/01/2026 Start: 08-30-2024 End: 08-30-2024 Patient encounter procedure 08/30/2024 11:00 AM EST Appointment [facility] Non-Invasive Cardiology [address] [place] [phone] [facility] Non-Invasive Cardiology Start: 08-24-2024 End: 08-24-2024 Patient encounter procedure 08/24/2024 9:00 AM EST [facility] [place] [address] [place] [phone] Maritza Ambrosio PA-C [address] [place] [address] [facility] [place] Start: 08-18-2024 End: 08-11-2025 Basic metabolic 1998 panel - Serum or Plasma [employer] Work Phone: Start: 08-18-2024 End: 08-18-2024 Patient encounter procedure 08/18/2024 1:00 PM EST Office Visit [facility] [place] [address] [place] [phone] Maritza Ambrosio PA-C [address] [place], [place] [phone] [facility] [place] Start: 08-11-2024 End: 08-04-2025 Basic metabolic 1998 panel - Serum or Plasma Basic metabolic panel Lab Routine HFrEF (heart failure with reduced ejection fraction) (HCC) Expected: 08/11/2024 (Approximate), Expires: 08/04/2025 [employer] Comment on above: Expected: 08/11/2024 (Approximate), Expi res: 08/04/2025 Start: 08-06-2024 End: 07-30-2025 Comprehensive metabolic 1998 panel - Serum or Plasma Comprehensive metabolic panel Lab Routine SCHUYLER (acute kidney injury) (HCC) Expected: 08/06/2024 (Approximate), Expires: 07/30/2025 [facility] [employer] Work Phone: Comment on above: Expected: 08/06/2024 (Approximate), Expi res: 07/30/2025 Start: 08-04-2024 End: 08-04-2025 Basic metabolic 1998 panel - Serum or Plasma Basic metabolic panel Lab Routine HFrEF (heart failure with reduced ejection fraction) (HCC) Expected: 08/04/2024 (Approximate), Expires: 08/04/2025 [facility] Work Phone: Comment on above: Expected: 08/04/2024 (Approximate), Expi res: 08/04/2025 Start: 08-04-2024 End: 08-04-2024 Patient encounter procedure 08/04/2024 10:15 AM EST Office Visit [facility] [address] [place] [phone] Sergei Astudillo MD [address] [place] [address] [facility] Start: 08-01-2024 End: 07-01-2025 Basic metabolic 1998 panel - Serum or Plasma Basic metabolic panel Lab Routine Chronic systolic heart failure (HCC) Expected: 08/01/2024 (Approximate), Expires: 07/01/2025 [facility] Comment on above: Expected: 08/01/2024 (Approximate), Expi res: 07/01/2025 Start: 07-29-2024 End: 07-29-2024 Patient encounter procedure 07/29/2024 2:30 PM EST Office Visit [facility] [address] [facility] [address] [place] [phone] Morgan Ulloa, CURRICULUM DIRECTOR - WHITING MACHINE OPERATOR [address] [facility], [address] [place] [address] [facility] Start: 07-28-2024 End: 07-21-2025 Basic metabolic 1998 panel - Serum or Plasma Basic metabolic panel Lab Routine HFrEF (heart failure with reduced ejection fraction) (HCC) Expected: 07/28/2024 (Approximate), Expires: 07/21/2025 [facility] Comment on above: Expected: 07/28/2024 (Approximate), Expi res: 07/21/2025 Start: 07-28-2024 End: 07-28-2024 Patient encounter procedure 07/28/2024 9:30 AM EST Office Visit [facility] [address] [place] [phone] Sergei Astudillo MD [address] [place] [address] [facility] Start: 07-23-2024 End: 07-23-2024 Patient encounter procedure 07/23/2024 2:30 PM EST Office Visit [facility] [address] [place] [address] [place] [phone] Morgan Ulloa, CURRICULUM DIRECTOR - WHITING MACHINE OPERATOR [address] [facility], [address] [phone] [facility] Start: 07-21-2024 End: 07-21-2025 Basic metabolic 1998 panel - Serum or Plasma Basic metabolic panel Lab Routine HFrEF (heart failure with reduced ejection fraction) (HCC) Expected: 07/21/2024 (Approximate), Expires: 07/21/2025 [facility] Work Phone: Comment on above: Expected: 07/21/2024 (Approximate), Expi res: 07/21/2025 Start: 07-21-2024 End: 07-21-2024 Patient encounter procedure 07/21/2024 9:30 AM EST Office Visit [facility] [address] [place] [phone] Morgan Ulloa, CURRICULUM DIRECTOR - WHITING MACHINE OPERATOR [address] [facility], [address] [place] [address] [facility] Start: 07-19-2024 End: 07-16-2025 Basic metabolic 1998 panel - Serum or Plasma Basic metabolic panel Lab Routine Chronic systolic heart failure (HCC) Expected: 07/19/2024 (Approximate), Expires: 07/16/2025 [facility] Work Phone: Comment on above: Expected: 07/19/2024 (Approximate), Expi res: 07/16/2025 Start: 07-14-2024 End: 07-07-2025 Basic metabolic 1998 panel - Serum or Plasma Basic metabolic panel Lab Routine Acute systolic heart failure (HCC) Expected: 07/14/2024 (Approximate), Expires: 07/07/2025 [facility] Work Phone: Comment on above: Expected: 07/14/2024 (Approximate), Expi res: 07/07/2025 Start: 07-07-2024 End: 07-07-2024 Patient encounter procedure 07/07/2024 1:00 PM EST Office Visit [facility] [address] [phone] Alex Zhang MD [address] [address] [facility] Start: 07-01-2024 End: 07-01-2024 Patient encounter procedure 07/01/2024 10:45 AM EST Office Visit [facility] [address] [phone] Alex Zhang MD [address] [address] [facility] Start: 06-16-2024 End: 06-10-2025 Basic metabolic 1997 panel - Serum or Plasma Basic metabolic panel Lab Routine Congestive heart failure, unspecified HF chronicity, unspecified heart failure type (HCC) Expected: 06/16/2024 (Approximate), Expires: 06/10/2025 [employer] Work Phone: Comment on above: Expected: 06/16/2024 (Approximate), Expi res: 06/10/2025 Start: 06-15-2024 End: 06-08-2025 Hepatic function 2000 panel - Serum or Plasma Hepatic function panel Lab Routine Congestive heart failure, unspecified HF chronicity, unspecified heart failure type (HCC) Expected: 06/15/2024 (Approximate), Expires: 06/08/2025 [employer] Work Phone: Comment on above: Expected: 06/15/2024 (Approximate), Expi res: 06/08/2025 Start: 06-14-2024 End: 06-14-2024 Patient encounter procedure 06/14/2024 3:15 PM EST Office Visit [facility] [address] [facility] [facility] [address] [place] [phone] Dudley Killian MD [address] [facility] [address] [place] [address] [facility] Start: 06-08-2024 End: 06-01-2025 CBC W Auto Differential panel - Blood CBC auto differential Lab Routine HFrEF (heart failure with reduced ejection fraction) (HCC) Expected: 06/08/2024 (Approximate), Expires: 06/01/2025 [facility] [employer] Comment on above: Expected: 06/08/2024 (Approximate), Expi res: 06/01/2025 Start: 06-08-2024 End: 06-01-2025 Comprehensive metabolic 1998 panel - Serum or Plasma Comprehensive metabolic panel Lab Routine HFrEF (heart failure with reduced ejection fraction) (HCC) Expected: 06/08/2024 (Approximate), Expires: 06/01/2025 [employer] Work Phone: Comment on above: Expected: 06/08/2024 (Approximate), Expi res: 06/01/2025 Start: 06-08-2024 End: 06-08-2024 Patient encounter procedure 06/08/2024 9:30 AM EST Office Visit [facility] [address] [facility] [address] [place] [address] Morgan Ulloa, CURRICULUM DIRECTOR - WHITING MACHINE OPERATOR [address] [place] [address] [facility] Start: 04-05-2024 End: 04-05-2024 Patient encounter procedure [facility] Start: 03-11-2024 End: 03-11-2024 Patient encounter procedure 03/11/2024 10:00 AM EDT Office Visit [facility] Cardiology [address] [facility] [address] [place] [phone] Gaby Marcano APRN - WHITING MACHINE OPERATOR [address] [facility] [address] [place], [place] [phone] [facility] Start: 02-29-2024 COVID-19 Vaccine ( season) COVID-19 Vaccine ( season) [facility] Start: 02-29-2024 COVID-19 Vaccine ( season) COVID-19 Vaccine ( season) [facility] Start: 02-29-2024 Influenza vaccination Influenza Vaccine (#1) [facility] Start: 02-29-2024 [facility] Start: 2023 Screening for malignant neoplasm of colon [facility] Start: 1997 DTaP/Tdap/Td Vaccines (1 - Tdap) DTaP/Tdap/Td Vaccines (1 - Tdap) [facility] Start: 1997 Hepatitis A (HAV) Vaccine (optional start 19+ years) Hepatitis A (HAV) Vaccine (optional start 19+ years) [facility] Start: 1997 Hepatitis A Vaccine (1 of 2 - Risk 2-dose series) Hepatitis A Vaccine (1 of 2 - Risk 2-dose series) [facility] Start: 1997 Hepatitis B vaccination Hepatitis B (HBV) Vaccine (1 of 3 - 19+ 3-dose series) [facility] Start: 1997 Hepatitis B Vaccine (1 of 3 - 19+ 3-dose series) Hepatitis B Vaccine (1 of 3 - 19+ 3-dose series) [facility] Start: 1997 Hepatitis B Vaccines (1 of 3 - 19+ 3-dose series) Hepatitis B Vaccines (1 of 3 - 19+ 3-dose series) [facility] Start: 1997 Pneumococcal vaccination [facility] Start: 1997 Pneumococcal Vaccine: Pediatrics (0 to 5 Years) and At-Risk Patients (6 to 49 Years) (1 of 2 - PCV) Pneumococcal Vaccine: Pediatrics (0 to 5 Years) and At-Risk Patients (6 to 49 Years) (1 of 2 - PCV) [facility] Start: 1997 Urine microalbumin profile DTaP,Tdap,Td Vaccine (1 - Tdap) [facility] Start: 1997 [facility] Start: 02-14-1996 Annual PCP Team Chronic Disease Visit Annual PCP Team Chronic Disease Visit [facility] Start: 02-14-1996 Anxiety Screening Anxiety Screening [facility] Start: 02-14-1996 Depression Screening Depression Screening [facility] Start: 02-14-1996 Diabetes mellitus screening Diabetes Screening [facility] Start: 02-14-1996 Hepatitis C screening [facility] Start: 02-14-1996 HIV screening HIV Screening [facility] Start: 02-14-1996 Tdap Booster Tdap Booster [facility] Start: 1990 Depression Screening Depression Screening [facility] Start: 1990 [facility] Start: 02-14-1984 Pneumococcal Vaccine: Pediatrics (0 to 5 Years) and At-Risk Patients (6 to 64 Years) (1 of 2 - PCV) Pneumococcal Vaccine: Pediatrics (0 to 5 Years) and At-Risk Patients (6 to 64 Years) (1 of 2 - PCV) [facility] Start: 1979 MMR Vaccines (1 of 1 - Standard series) MMR Vaccines (1 of 1 - Standard series) [facility] Start: 1979 [facility] Start: 1978 Echocardiography Echocardiogram [facility] Start: 1978 Fluid sample AFP level Alpha Fetoprotein (Hepatocellular Carcinoma Screening) [facility] Start: 1978 HIV screening [facility] Start: 1978 Lipid panel Lipid Panel [facility] Start: 1978 Prostate specific antigen measurement Prostate Cancer Screening (shared decision making) [facility] Start: 1978 Screening for malignant neoplasm of colon [facility] Alanine aminotransfe rase [Enzymatic activity/volume] in Serum or Plasma [facility] Albumin [Mass/volume ] in Serum or Plasma [facility] Alkaline phosphatase [Enzymatic activity/volume] in Serum or Plasma [facility] Anion gap in Serum o r Plasma [facility] Assay of magnesium MAGNESIUM Lab STAT Daily until discontinued starting 10/01/2024, 4 completed [facility] [employer] Comment on above: Daily until discontinued starting 2024, 4 completed Assay of magnesium MAGNESIUM Lab STAT Daily until discontinued starting 10/18/2024, 4 completed [employer] [facility] [employer] Comment on above: Daily until discontinued starting 2024, 4 completed End: 10-26-2024 Assay of magnesium MAGNESIUM Lab Routine Morning Blood Draw for 1 Occurrences starting 10/26/2024 until 10/26/2024 [facility] Comment on above: Morning Blood Draw for 1 Occurrences sta rting 10/26/2024 until 10/26/2024 Assay of phosphorus inorganic PHOSPHORUS Lab Routine Daily until discontinued starting 10/01/2024, 4 completed [employer] Work Phone: Comment on above: Daily until discontinued starting 2024, 4 completed End: 04-28-2024 Bacteria identified in Lower respiratory specimen by [employer] culture Respiratory culture and Stain Microbiology Routine Once (Lab) for 1 Occurrences starting 04/28/2024 until 04/28/2024 [facility] Comment on above: Once (Lab) for 1 Occurrences starting until 04/28/2024 Basic metabolic 2000 panel - Serum or Plasma BASIC METABOLIC PANEL Lab STAT Daily until discontinued starting 10/01/2024, 4 completed [employer] Work Phone: Comment on above: Daily until discontinued starting 2024, 4 completed Basic metabolic 2000 panel - Serum or Plasma BASIC METABOLIC PANEL Lab STAT Daily until discontinued starting 10/18/2024, 4 completed [employer] Comment on above: Daily until discontinued starting 2024, 4 completed End: 10-26-2024 Basic metabolic 2000 panel - Serum or Plasma BASIC METABOLIC PANEL Lab Routine Morning Blood Draw for 1 Occurrences starting 10/26/2024 until 10/26/2024 [facility] Comment on above: Morning Blood Draw for 1 Occurrences sta rting 10/26/2024 until 10/26/2024 Bilirubin, total measurement [facility] End: 10-02-2024 Blood count complete auto&auto difrntl wbc CBC WITH DIFFERENTIAL Lab Only STAT Once for 1 Occurrences starting 10/02/2024 until 10/02/2024 [facility] Comment on above: Once for 1 Occurrences starting 10/03/19 until 10/02/2024 End: 10-04-2024 Blood count complete auto&auto difrntl wbc CBC WITH DIFFERENTIAL Lab Only STAT Once for 1 Occurrences starting 10/04/2024 until 10/04/2024 [facility] Comment on above: Once for 1 Occurrences starting 10/05/19 until 10/04/2024 End: 10-05-2024 Blood count complete auto&auto difrntl wbc CBC WITH DIFFERENTIAL Lab Only STAT Once for 1 Occurrences starting 10/05/2024 until 10/05/2024 [facility] Comment on above: Once for 1 Occurrences starting 10/06/19 until 10/05/2024 End: 10-19-2024 Blood count complete auto&auto difrntl wbc CBC WITH DIFFERENTIAL Lab Only STAT Once for 1 Occurrences starting 10/19/2024 until 10/19/2024 [facility] Work Phone: Comment on above: Once for 1 Occurrences starting 10/20/19 until 10/19/2024 End: 10-22-2024 Blood count complete auto&auto difrntl wbc CBC WITH DIFFERENTIAL Lab Only STAT Once for 1 Occurrences starting 10/22/2024 until 10/22/2024 [facility] Comment on above: Once for 1 Occurrences starting 10/23/19 until 10/22/2024 End: 10-23-2024 Blood count complete auto&auto difrntl wbc CBC WITH DIFFERENTIAL Lab Only STAT Once for 1 Occurrences starting 10/23/2024 until 10/23/2024 [facility] Comment on above: Once for 1 Occurrences starting 10/24/19 until 10/23/2024 End: 10-24-2024 Blood count complete auto&auto difrntl wbc CBC WITH DIFFERENTIAL Lab Only STAT Once for 1 Occurrences starting 10/24/2024 until 10/24/2024 [facility] Comment on above: Once for 1 Occurrences starting 10/25/19 until 10/24/2024 End: 10-25-2024 Blood count complete auto&auto difrntl wbc CBC WITH DIFFERENTIAL Lab Only STAT Once for 1 Occurrences starting 10/25/2024 until 10/25/2024 [facility] Comment on above: Once for 1 Occurrences starting 10/26/19 until 10/25/2024 End: 10-26-2024 Blood count complete auto&auto difrntl wbc CBC WITH DIFFERENTIAL Lab Only Routine Once for 1 Occurrences starting 10/26/2024 until 10/26/2024 [facility] Comment on above: Once for 1 Occurrences starting 10/27/19 until 10/26/2024 BUN/Creatinine ratio [facility] Calcium [Mass/volume ] in Serum or Plasma [facility] Carbon dioxide, tota l [Moles/volume] in Central venous blood [facility] CBC W Auto Different ial panel - Blood COMPLETE BLOOD COUNT W/DIFF Lab STAT Daily until discontinued starting 10/01/2024, 3 completed [facility] Comment on above: Daily until discontinued starting 2024, 3 completed CBC W Auto Different ial panel - Blood COMPLETE BLOOD COUNT W/DIFF Lab STAT Daily until discontinued starting 10/18/2024, 4 completed [facility] [facility] Comment on above: Daily until discontinued starting 2024, 4 completed End: 10-26-2024 CBC W Auto Differential panel - Blood COMPLETE BLOOD COUNT W/DIFF Lab Routine Morning Blood Draw for 1 Occurrences starting 10/26/2024 until 10/26/2024 [employer] Work Phone: Comment on above: Morning Blood Draw for 1 Occurrences sta rting 10/26/2024 until 10/26/2024 Cholesterol [Mass/vo lume] in Serum or Plasma [facility] Cholesterol in HDL [Mass/volume] in Serum or Plasma [facility] End: 08-25-2024 COVID-19, Flu A/B, and RSV Combo COVID-19, Flu A/B, and RSV Combo Microbiology STAT Once (Lab) for 1 Occurrences starting 08/25/2024 until 08/25/2024 [employer] Work Phone: Comment on above: Once (Lab) for 1 Occurrences starting until 08/25/2024 Creatinine [Mass/vol ume] in Serum or Plasma [facility] End: 10-17-2024 Cul prsmptv pthgnc organism scrn w/colony estimj MRSA SCREEN Microbiology STAT One time for 1 Occurrences starting 10/17/2024 until 10/17/2024 [employer] Work Phone: Comment on above: One time for 1 Occurrences starting 09/29 until 10/17/2024 End: 10-18-2024 Culture bacterial blood aerobic w/id isolates BLOOD CULTURE Microbiology Routine One time for 1 Occurrences starting 10/18/2024 until 10/18/2024 [employer] Comment on above: One time for 1 Occurrences starting 09/29 until 10/18/2024 ECG 12 lead ECG 12 lead CV E CG STAT 04/28/2024 10:07 AM [employer] Work Phone: ECG 12 lead ECG 12 lead CV E CG Routine Congestive heart failure, unspecified HF chronicity, unspecified heart failure type (HCC) 06/08/2024 10:32 AM [employer] Work Phone: ECG 12 lead ECG 12 lead CV E CG STAT 08/05/2024 7:06 AM [employer] Work Phone: ECG 12 lead ECG 12 lead CV E CG STAT 08/25/2024 2:29 AM [employer] End: 10-20-2024 Ecg routine ecg w/least 12 lds trcg only w/o i&r EKG 12 LEAD - PERFORM MUSE Routine Daily for 3 Days starting 10/18/2024 until 10/20/2024, 1 completed [employer] Comment on above: Daily for 3 Days starting 10/18/2024 unt il 10/20/2024, 1 completed Ecg routine ecg w/le ast 12 lds trcg only w/o i&r EKG 12 LEAD - PERFORM MUSE Routine PRN until discontinued starting 10/18/2024 [employer] Comment on above: PRN until discontinued starting 10/19/19 25 Erythrocyte mean corpuscular volume determination [facility] Glucose [Mass/volume ] in Serum or Plasma [facility] Hematocrit [Volume Fraction] of Blood [facility] Hemoglobin [Mass/vol ume] in Blood [facility] Hepatic function panel HEPATIC F UNCTION PANEL Lab Routine Daily until discontinued starting 10/19/2024, 3 completed [employer] Comment on above: Daily until discontinued starting 2024, 3 completed End: 09-30-2024 Iaad ia mult step method nos each organism LEGIONELLA ANTIGEN, URINE Microbiology STAT One time for 1 Occurrences starting 09/30/2024 until 09/30/2024 [employer] Work Phone: Comment on above: One time for 1 Occurrences starting 08/2024 until 09/30/2024 INR in Blood by Coagulation assay [facility] LAB COLOGUARD COLON CANCER SCREEN [facility] Lab Routine Screening for colorectal cancer Ordered: 12/02/2024 [employer] Work Phone: Comment on above: Ordered: 12/02/2024 Leukocytes [#/volume ] in Blood [facility] Low density lipoprot ein cholesterol measurement [facility] Mean corpuscular hemoglobin concentration determination [facility] Mean corpuscular hemoglobin determination [facility] Measurement of renal function [facility] Neutrophil count [facility] Neutrophil percent differential count [facility] End: 09-30-2024 Particle agglutination screen each antibody STREPTOCOCCUS PNEUMONIAE AG Microbiology STAT One time, now for 1 Occurrences starting 09/30/2024 until 09/30/2024 [employer] Comment on above: One time, now for 1 Occurrences starting 09/30/2024 until 09/30/2024 Patient Education Heart Failure and Depression Heart Failure Meds Heart Failure Flare Up Signs Heart Failure Make Changes Diet Heart Failure Dc Heart Failure Sleep Problems Heart Failure Care Heart Failure and Physical Activity Heart Failure [facility] Work Phone: Platelets [#/volume] in Blood [facility] Potassium measurement [facility] Red blood cell count [facility] Red cell distributio n width determination [facility] End: 04-28-2024 Respiratory pathogens DNA and RNA panel - Lower respiratory specimen by DEENA with non-probe detection Pneumonia PCR Panel Microbiology Routine Once (Lab) for 1 Occurrences starting 04/28/2024 until 04/28/2024 [facility] [employer] Work Phone: Comment on above: Once (Lab) for 1 Occurrences starting until 04/28/2024 Serum chloride measurement [facility] Sodium measurement [facility] Total cholesterol:HD L ratio measurement [facility] Total protein measurement [facility] Triglycerides measurement [facility] Urea nitrogen [Mass/volume] in Serum or Plasma [facility] Urnls dip stick/tabl et rgnt auto w/o microscopy URINALYSIS W/REFLEX CULTURE Lab Routine When Specimen Available/Needed for 1 Occurrences starting 10/25/2024 [facility] Comment on above: When Specimen Available/Needed for 1 Occ urrences starting 10/25/2024 VLDL cholesterol measurement [facility] Immunizations Immunization Date Immunization Notes Care Provider Fa cility 10-01-2024 Hemoglobin A1C Vargas Berg MD Work Phone: [facility] 06-14-2024 influenza vaccine tiss-cult subunt (Flucelvax) STANDARD-DOSE injection 0.5 mL Joel Reyes MD Work Phone: [facility] Payers Date Payer Category Payer Self-pay 2024 Commercial Managed C are - HMO [id number] 2024 Other Federal [facility] INDIVID UAL EXCHANGE [id number] 2024 Private Health Insurance [employer] [id number] 2024 Unknown [id number] 2024 Medicaid [id number]. [id number]. [id number] 2024 Medicaid [id number] 1978 Unknown [id number] 2.840.1.351348.3.579.2. 159 1978 Unknown [id number] 2.840.1.570103.3.579.2 1978 Unknown [id number] 2.840.1.191653.3.579.2 1978 Unknown [id number] 2.840.1.646770.3.579.2 1978 Unknown [id number] .840.1.737136.3.579.2 1978 Unknown [id number] 2.840.1.395088.3.579.2. 1978 Unknown [id number] 2.840.1.549952.3.579.2. 1978 Unknown [id number] 2.840.1.608984.3.579.2 1978 Unknown [id number] 2.840.1.963635.3.579.2. 1978 Unknown [id number] 2.840.1.520865.3.579.2. 1978 Unknown [id number] 2..840.1.724707.3.579.2 1978 Unknown [id number] 2.16.840.1.568042.3.579.2 1978 Unknown [id number] 2..840.1.137037.3.579.2 1978 Unknown [id number] 2..840.1.695912.3.579.2 1978 Unknown [id number] 2.840.1.875591.3.579. 1978 Unknown [id number] 2.840.1.318114.3.579. 1978 Unknown [id number] 2.840.1.848501.3.579. 1978 Unknown [id number] 2.840.1.368898.3.579. 1978 Unknown [id number] .840.1.790376.3.579.2 1978 Unknown [id number] 2.840.1.377478.3.579.2 1978 Unknown [id number] .840.1.348505.3.579.2 1978 Unknown [id number] 2.840.1.147406.3.579.2 1978 Unknown [id number] 2.840.1.601249.3.579.2 1978 Unknown [id number] 2.840.1.398423.3.579.2 1978 Unknown [id number] 2.840.1.151078.3.579.2 1978 Unknown [id number] 2.16.840.1.894490.3.579.2. 732 1978 Unknown [id number] 2.16.840.1.264437.3.579.2. 732 Unknown Unknown [id number] 2.16.840.1.271593.3.579.2. 462 Unknown [id number] 2.16.840.1.499099.3.579.2. 462 Unknown [id number] 2.16.840.1.384363.3.579.2. 462 Unknown [id number] 2.16.840.1.509243.3.579.2. 462 Unknown [id number] 2.16.840.1.476155.3.579.2. 462 Unknown [id number] 2.16.840.1.167447.3.579.2. 462 Unknown [id number] 2.16.840.1.126128.3.579.2. 462 Unknown [id number] 2.16.840.1.339271.3.579.2. 462 Unknown [id number] 2.16.840.1.434536.3.579.2. 462 Unknown [id number] 2.16.840.1.589734.3.579.2. 462 Social History Date Type Detail Facility Start: 02-28-2024 End: 01-04-2025 Tobacco smoking status [facility] Never smoked tobacco [facility] Start: 02-28-2024 End: 08-27-2024 Tobacco use and exposure Smokeless tobacco non-user [facility] Start: 02-28-2024 End: 01-20-2025 History of Social function [facility] Start: 02-28-2024 End: 01-20-2025 [id number] Health Literacy [facility] How often do you nee d to have someone help you when you read instructions, pamphlets, or other written material from your doctor or pharmacy [SILS] Never [facility] Has the electric, gas, oil, or water company threatened to shut off services in your home in past 12Mo No [facility] Are you now , , , , never or living with a partner? Living with partner [facility] How often to you hav e a drink containing alcohol? Never [facility] How hard is it for you to pay for the very basics like food, housing, medical care, and heating Not very hard [facility] Do you feel stress - tense, restless, nervous, or anxious, or unable to sleep at night because your mind is troubled all the time - these days [OSQ] To some extent [facility] (I/We) worried whether (my/our) food would run out before (I/we) got money to buy more. Never true [facility] Start: 1980 Sex assigned at Not on file [facility] How often to you hav e a drink containing alcohol? Monthly or less [facility] How many standard drinks containing alcohol do you have on a typical day? 1 or 2 [facility] Start: 02-28-2024 End: 08-09-2024 Sex Male (finding) [facility] Do you feel stress - tense, restless, nervous, or anxious, or unable to sleep at night because your mind is troubled all the time - these days [OSQ] Not at all [facility] Start: 05-28-2024 Sexual orientation Heterosexual (fin ding) [facility] Start: 05-28-2024 End: 08-25-2024 Alcoholic beverage intake Lifetime non-drinker (finding) [facility] Start: 1980 Sex assigned at Male [facility] Start: 06-13-2024 Gender identity Identifies as male gender (finding) [facility] Tobacco smoking status VTIS Tobacco smoking consumption unknown [facility] Work Phone: NEGATED: Highlighted rowStart: NINF History of tobacco use Passive smoker [facility] Goals Date Patient Goal Desired Activity /State Personal health goal Functional Status Date Assessment Result Facility 01-21-2025 Are you deaf, or do you have serious difficulty hearing No 01/21/2025 1:26 PM King Villeda, RN No [facility] 01-21-2025 Are you blind, or do you have serious difficulty seeing, even when wearing glasses No 01/21/2025 1:26 PM King Villeda RN No [facility] 01-21-2025 Do you have serious difficulty walking or climbing stairs No 01/21/2025 1:26 PM King Villeda, RN No [facility] 01-21-2025 Do you have difficul ty dressing or bathing No 01/21/2025 1:26 PM King Villeda, RN No [facility] 01-21-2025 Because of a physica l, mental, or emotional condition, do you have difficulty doing errands alone such as visiting a physician's office or shopping No 01/21/2025 1:26 PM King Villeda, RN No [facility] 01-10-2025 Functional status Ambulates;Bath room Privilege [facility] Work Phone: 01-10-2025 Functional status Ambulates [facility] Work Phone: 01-09-2025 Functional status Tolerates Activity [facility] Work Phone: 06-01-2024 Are you deaf, or do you have serious difficulty hearing No [facility] 06-01-2024 Are you blind, or do you have serious difficulty seeing, even when wearing glasses No [facility] 06-01-2024 Do you have serious difficulty walking or climbing stairs No [facility] 06-01-2024 Do you have difficul ty dressing or bathing No [facility] 06-01-2024 Because of a physica l, mental, or emotional condition, do you have difficulty doing errands alone such as visiting a physician's office or shopping No [facility] Mental Status Date Assessment Result Facility 01-21-2025 Because of a physica l, mental, or emotional condition, do you have serious difficulty concentrating, remembering, or making decisions No 01/21/2025 1:26 PM King Villeda, RN No [facility] 01-10-2025 Cognitive function Voice/Name [facility] Work Phone: 01-09-2025 Cognitive function Voice/Name [facility] Work Phone: 06-01-2024 Because of a physica l, mental, or emotional condition, do you have serious difficulty concentrating, remembering, or making decisions No [facility] Clinical Notes 02-28-2024 to 01-24-2025 Mallika Quiles, [facility] - 01/24/2025 7:12 AM EDT Note Date & Type Note Facility 01-24-2025 History of Present illness Narrative TRANSITION CARE MANAGEMENT (TCM) HEART FAILURE PHARMACY CONTACT Provider Action/FYI: Medication reconciliation services declined due to patient preference. TCM medication reconciliation incomplete at this time. - Pt hung up the phone Patient Workup: HF medication classes present on medication list: LUCRECIA/ARB/ARNI NO Beta jerome NO Aldosterone antagonist NO SGLT2i NO Hydralazine/Isosorbide YES - isosorbide dinitrate Ivabradine NO Loop diuretics NO Digoxin NO New HF medication class(es) added this admission: No (Patient to be counseled on new medications if full medication review completed) Last documented LVEF: LV Ejection Fraction (%) Date Value 01/21/2025 15 Last documented weight: Last Wt 01/21/25 77.1 kg (169 lb 15.6 oz) Patient was sent a message via [employer] including the link to the [facility] Heart Failure education video: No - [employer] is pending Initial contact with patient post discharge, spoke to patient, and verified that any applicable caregiver is active in patient's medical care. Patient identified by name and . Summary: -Pt discharged from [facility] on 01/21/25. -Medication review done Declined at this time per patient preference - Phone hung up History of Present Illness: The following content has been copied and pasted from patient's discharge summary. If discharge summary unavailable, After Visit Summary or last pertinent inpatient notes are copied and pasted. Admission Diagnosis: Acute decompensated heart failure (HCC) [I50.9] Discharge Diagnosis: Acute on Chronic HFrEF Secondary Diagnoses: Patient Active Hospital Problem List: Acute on chronic HFrEF (heart failure with reduced ejection fraction) (HCC) Date Noted: 10/21/2024 History of left bundle branch block (LBBB) Date Noted: 06/19/2024 Essential hypertension Date Noted: 06/08/2024 CKD (chronic kidney disease) Date Noted: 06/08/2024 Personal history of DVT (deep vein thrombosis) Date Noted: 01/20/2025 NICM (nonischemic cardiomyopathy) (HCC) Date Noted: 01/21/2025 Scleral icterus Date Noted: 01/21/2025 Reason for Hospitalization: Carlo Medina is a 44 year old male with pmhx of HFrEF, CKD 3b, cirrhosis, HTN, LBBB, DVT who presented to the ER with complaint of SOB/CARRERA, orthopnea, abdominal bloating, lower extremity edema. Hospital course: Pt admitted to stepdown. Started on IV lasix. Pt refused hydralazine, reported he felt unwell on it and stopped it. EP was consulted for consideration of ICD placement. As he has not been on GDMT for 3 continuous months, has not had regular follow up, and QRS <150ms He is currently not a candidate for ICD. He can be reconsidered for ICD in 3months if on GDMT and has cardiac follow up. An attempt was made to add ARB however the patient refused. He reported that he was not here to start any new medications. Stated that he was here only for defibrillator. IV access was lost and patient refused to have anyone placed new IV. He is discharged as he refuses medical therapy. PHYSICAL EXAM: Vitals 01/20/25 2046 01/21/25 0215 01/21/25 0608 01/21/25 0922 BP: 115/84 123/86 127/94 Pulse: 95 99 88 Resp: 18 18 18 Temp: 36.4 C (97.6 F) 36.1 C (97 F) 36.5 C (97.7 F) TempSrc: Oral Axillary Oral SpO2: 93% 99% 98% 97% Weight: 77.1 kg (169 lb 15.6 oz) Height: Consults: Electrophysiology Major Procedure or Operation: None Other Procedures, Testing & Radiology: Echo Patient Condition at Discharge: Stable Disposition: Home with Self Care Transitions of Care Critical Issues: Outpatient Management: * Are there important medication changes and/or outstanding issues that need to be addressed: CV Needs f/u with cardiology * What is the plan for follow up: Pt to schedule f/u Medication Reconciliation: Legend: Stopped, New, Changed, Added to list Medication List Medication Directions Comments Action/Plan apixaban (ELIQUIS) 5 mg tab(s) Take 5 mg by mouth two times a day. Historical Med on pharmacy dispense records with recent fill hx Discontinued: 01/21/2025 12:39 PM DC'd Pt refused hydralazine, reported he felt unwell on it and stopped it. isosorbide dinitrate (ISORDIL) 20 mg tablet Take 20 mg by mouth three times a day. Historical Med You were admitted to cardiology and started on IV lasix. Your imdur was continued. Discontinued: 01/21/2025 12:39 PM DC'd An attempt was made to add ARB however the patient refused. Preferred pharmacy: e- [facility]/pharmacy #[id number] - [place] [address] - [address] [place] [address] - [phone] [place] [id number] Estimated Creatinine Clearance: 40.9 mL/min (A) (based on SCr of 2.46 mg/dL (H)). Estimated Glomerular Filtration Rate (mL/min/1.73m ) Date Value 01/20/2025 32 (L) Additional follow up: Next 5 Appointments None Interventions Made: None Pharmacist Recommendations Made None Care Coordination: None at this time Time spent on patient: 0-15 minutes Mallika Quiles RPh January 24, 2025 7:12 AM documented in this encounter [facility] 01-24-2025 Note HNO ID: [id number] Author: MALLIKA QUILES RPh Service: Pharmacy Author Type: Pharmacist Type: Progress Notes Filed: 01/24/2025 14:21 Note Text: TRANSITION CARE MANAGEMENT (TCM) HEART FAILURE PHARMACY CONTACT Provider Action/FYI: Medication reconciliation services declined due to patient preference. TCM medication reconciliation incomplete at this time. - Pt hung up the phone Patient Workup: HF medication classes present on medication list: LUCRECIA/ARB/ARNI NO Beta jerome NO Aldosterone antagonist NO SGLT2i NO Hydralazine/Isosorbide YES - isosorbide dinitrate Ivabradine NO Loop diuretics NO Digoxin NO New HF medication class(es) added this admission: No (Patient to be counseled on new medications if full medication review completed) Last documented LVEF: LV Ejection Fraction (%) Date Value 01/21/2025 15 Last documented weight: Last Wt 01/21/25 77.1 kg (169 lb 15.6 oz) Patient was sent a message via [employer] including the link to the [facility] Heart Failure education video: No - [employer] is pending Initial contact with patient post discharge, spoke to patient, and verified that any applicable caregiver is active in patient's medical care. Patient identified by name and . Summary: -Pt discharged from [facility] on 01/21/25. -Medication review done Declined at this time per patient preference - Phone hung up History of Present Illness: The following content has been copied and pasted from patient's discharge summary. If discharge summary unavailable, After Visit Summary or last pertinent inpatient notes are copied and pasted. Admission Diagnosis: Acute decompensated heart failure (HCC) [I50.9] Discharge Diagnosis: Acute on Chronic HFrEF Secondary Diagnoses: Patient Active Hospital Problem List: Acute on chronic HFrEF (heart failure with reduced ejection fraction) ([facility]) Date Noted: 10/21/2024 History of left bundle branch block (LBBB) Date Noted: 06/19/2024 Essential hypertension Date Noted: 06/08/2024 CKD (chronic kidney disease) Date Noted: 06/08/2024 Personal history of DVT (deep vein thrombosis) Date Noted: 01/20/2025 NICM (nonischemic cardiomyopathy) ([facility]) Date Noted: 01/21/2025 Scleral icterus Date Noted: 01/21/2025 Reason for Hospitalization: Carlo Medina is a 44 year old male with pmhx of HFrEF, CKD 3b, cirrhosis, HTN, LBBB, DVT who presented to the ER with complaint of SOB/CARRERA, orthopnea, abdominal bloating, lower extremity edema. Hospital course: Pt admitted to stepdown. Started on IV lasix. Pt refused hydralazine, reported he felt unwell on it and stopped it. EP was consulted for consideration of ICD placement. As he has not been on GDMT for 3 continuous months, has not had regular follow up, and QRS <150ms He is currently not a candidate for ICD. He can be reconsidered for ICD in 3months if on GDMT and has cardiac follow up. An attempt was made to add ARB however the patient refused. He reported that he was not here to start any new medications. Stated that he was here only for defibrillator. IV access was lost and patient refused to have anyone placed new IV. He is discharged as he refuses medical therapy. PHYSICAL EXAM: Vitals 01/20/25 2046 01/21/25 0215 01/21/25 0608 01/21/25 0922 BP: 115/84 123/86 127/94 Pulse: 95 99 88 Resp: 18 18 18 Temp: 36.4 ?C (97.6 ?F) 36.1 ?C (97 ?F) 36.5 ?C (97.7 ?F) TempSrc: Oral Axillary Oral SpO2: 93% 99% 98% 97% Weight: 77.1 kg (169 lb 15.6 oz) Height: Consults: Electrophysiology Major Procedure or Operation: None Other Procedures, Testing AND Radiology: Echo Patient Condition at Discharge: Stable Disposition: Home with Self Care Transitions of Care Critical Issues: Outpatient Management: * Are there important medication changes and/or outstanding issues that need to be addressed: CV Needs f/u with cardiology * What is the plan for follow up: Pt to schedule f/u Medication Reconciliation: Legend: Stopped, New, Changed, Added to list Medication List Medication Directions Comments Action/Plan apixaban (ELIQUIS) 5 mg tab(s) Take 5 mg by mouth two times a day. Historical Med on pharmacy dispense records with recent fill hx Discontinued: 01/21/2025 12:39 PM DC'd Pt refused hydralazine, reported he felt unwell on it and stopped it. isosorbide dinitrate (ISORDIL) 20 mg tablet Take 20 mg by mouth three times a day. Historical Med You were admitted to cardiology and started on IV lasix. Your imdur was continued. Discontinued: 01/21/2025 12:39 PM DC'd An attempt was made to add ARB however the patient refused. Preferred pharmacy: e- [facility]/pharmacy #[id number] - [place] [address] - [address] [place] [address] - [phone] [place] [address] Estimated Creatinine Clearance: 40.9 mL/min (A) (based on SCr of 2.46 mg/dL (H)). Estimated Glomerular Filtration Rate (mL/min/1.73m?) (more content not included)... [facility] 01-24-2025 Note Patient Outreach ( RXRF) CARLO MEDINA ([id number]) 1980 M Date Time Provider Department 01/24/25 [facility] During your visit today, we recorded the following information about you: Mallika Quiles [facility] [facility] 01/24/2025 2:21 PM Signed TRANSITION CARE MANAGEMENT (TCM) HEART FAILURE PHARMACY CONTACT Provider Action/FYI: Medication reconciliation services declined due to patient preference. TCM medication reconciliation incomplete at this time. - Pt hung up the phone Patient Workup: HF medication classes present on medication list: LUCRECIA/ARB/ARNI NO Beta jerome NO Aldosterone antagonist NO SGLT2i NO Hydralazine/Isosorbide YES - isosorbide dinitrate Ivabradine NO Loop diuretics NO Digoxin NO New HF medication class(es) added this admission: No (Patient to be counseled on new medications if full medication review completed) Last documented LVEF: LV Ejection Fraction (%) Date Value 01/21/2025 15 Last documented weight: Last Wt 01/21/25 77.1 kg (169 lb 15.6 oz) Patient was sent a message via [employer] including the link to the [facility] Heart Failure education video: No - [employer] is pending Initial contact with patient post discharge, spoke to patient, and verified that any applicable caregiver is active in patient's medical care. Patient identified by name and . Summary: -Pt discharged from [facility] on 01/21/25. -Medication review done Declined at this time per patient preference - Phone hung up History of Present Illness: The following content has been copied and pasted from patient's discharge summary. If discharge summary unavailable, After Visit Summary or last pertinent inpatient notes are copied and pasted. Admission Diagnosis: Acute decompensated heart failure (HCC) [I50.9] Discharge Diagnosis: Acute on Chronic HFrEF Secondary Diagnoses: Patient Active Hospital Problem List: Acute on chronic HFrEF (heart failure with reduced ejection fraction) (HCC) Date Noted: 10/21/2024 History of left bundle branch block (LBBB) Date Noted: 06/19/2024 Essential hypertension Date Noted: 06/08/2024 CKD (chronic kidney disease) Date Noted: 06/08/2024 Personal history of DVT (deep vein thrombosis) Date Noted: 01/20/2025 NICM (nonischemic cardiomyopathy) ([facility]) Date Noted: 01/21/2025 Scleral icterus Date Noted: 01/21/2025 Reason for Hospitalization: Carlo Medina is a 44 year old male with pmhx of HFrEF, CKD 3b, cirrhosis, HTN, LBBB, DVT who presented to the ER with complaint of SOB/CARRERA, orthopnea, abdominal bloating, lower extremity edema. Hospital course: Pt admitted to stepdown. Started on IV lasix. Pt refused hydralazine, reported he felt unwell on it and stopped it. EP was consulted for consideration of ICD placement. As he has not been on GDMT for 3 continuous months, has not had regular follow up, and QRS <150ms He is currently not a candidate for ICD. He can be reconsidered for ICD in 3months if on GDMT and has cardiac follow up. An attempt was made to add ARB however the patient refused. He reported that he was not here to start any new medications. Stated that he was here only for defibrillator. IV access was lost and patient refused to have anyone placed new IV. He is discharged as he refuses medical therapy. PHYSICAL EXAM: Vitals 01/20/25 2046 01/21/25 0215 01/21/25 0608 01/21/25 0922 BP: 115/84 123/86 127/94 Pulse: 95 99 88 Resp: 18 18 18 Temp: 36.4 ?C (97.6 ?F) 36.1 ?C (97 ?F) 36.5 ?C (97.7 ?F) TempSrc: Oral Axillary Oral SpO2: 93% 99% 98% 97% Weight: 77.1 kg (169 lb 15.6 oz) Height: Consults: Electrophysiology Major Procedure or Operation: None Other Procedures, Testing AND Radiology: Echo Patient Condition at Discharge: Stable Disposition: Home with Self Care Transitions of Care Critical Issues: Outpatient Management: * Are there important medication changes and/or outstanding issues that need to be addressed: CV Needs f/u with cardiology * What is the plan for follow up: Pt to schedule f/u Medication Reconciliation: Legend: Stopped, New, Changed, Added to list Medication List Medication Directions Comments Action/Plan apixaban (ELIQUIS) 5 mg tab(s) Take 5 mg by mouth two times a day. Historical Med on pharmacy dispense records with recent fill hx Discontinued: 01/21/2025 12:39 PM DC'd Pt refused hydralazine, reported he felt unwell on it and stopped it. isosorbide dinitrate (ISORDIL) 20 mg tablet Take 20 mg by mouth three times a day. Historical Med You were admitted to cardiology and started on IV lasix. Your imdur was continued. Discontinued: 01/21/2025 12:39 PM DC'd An attempt was made to add ARB however the patient refused. Preferred pharmacy: e- [id number] [place] [address] - [address] [facility] [phone] [id number] [address] [facility] [id number] P (more content not included)... [facility] 01-21-2025 Note HNO ID: [id number] Author: GABY GUIDRY RPh Service: Pharmacy Author Type: Pharmacist Type: Plan of Care Filed: 01/21/2025 13:18 Note Text: HEART FAILURE DISCHARGE MEDICATION REVIEW BY PHARMACY Patient Name: Carlo Medina Account #: Data Unavailable Admission Date: 01/19/2025 Date of Contact: January 21, 2025 Time of Contact: 1:10 PM Medication list was reviewed by a Pharmacist for drug interactions or drug related problems:Yes Below is a summary of pharmacist recommendations discussed with LIP: No Recommendations at this time from Discharge Medication List. Medication reconciliation completed: Off rounds Other comments: Wan check performed this admission: Vasu Vieira Farxiga - All $0/month and Guideline Directed Medical Therapy Patient declining any medication changes as he only wanted to be admitted for a defibrillator. I recommend patient follow up with home provider for new prescriptions as patient possibly last filled Isordil 20mg (30 DS) in August 2024 and Apixaban 5mg (14 DS) on December 24, 2024. Most recent GDMT score: 1 Inpatient GDMT score: 2 ACEi/ARB/ARNI YES - losartan Beta Jerome NO Aldosterone antagonist NO SGLT2i NO Gaby GuidryStevo January 21, 2025 1:10 PM Pager: [phone] Medication List CONTINUE taking these medications apixaban 5 mg tab(s) Commonly known as: ELIQUIS isosorbide dinitrate 20 mg tablet Commonly known as: ISORDIL STOP taking these medications hydrALAZINE 100 mg tablet Commonly known as: APRESOLINE losartan 50 mg tablet Commonly known as: COZAAR [facility] 01-21-2025 Note HNO ID: [id number] Author: MELISSA ORDAZ APRN.WHITING MACHINE OPERATOR Service: Cardiovascular Medicine Author Type: Nurse Practitioner Type: Progress Notes Filed: 01/21/2025 11:51 Note Text: [facility] CARDIOVASCULAR MEDICINE PROGRESS NOTE Carlo Medina [id number] PRIMARY SERVICE: Linda Ta Clinical Air Motor Repairer/Pa HOSPITAL DAY: # 2 INTERVAL HISTORY Less edematous today Resume pj Addendum: 11:46 AM Patient refusing losartan, states he does not take it at home. He is refusing any new medication. IV access was lost and he refused to let any nurse attempt another line. Per nursing he will take oral diuretic. He will be discharged as he does not need to be in the hospital if he is refusing treatment. Rhythm: SR/ST Intake/Output Summary (Last 24 hours) at 01/21/2025 0943 Last data filed at 01/21/2025 0922 Gross per 24 hour Intake 608 ml Output 1450 ml Net -842 ml EKG: Most recent reviewed TELE: most recent recordings reviewed PHYSICAL EXAM: 01/20/25204501/21/25 0215 01/21/25 0608 01/21/25 0922 BP: 115/84 123/86 127/94 Pulse: 95 99 88 Resp: 18 18 18 Temp: 36.4 ?C (97.6 ?F) 36.1 ?C (97 ?F) 36.5 ?C (97.7 ?F) TempSrc: Oral Axillary Oral SpO2: 93% 99% 98% 97% Weight: 77.1 kg (169 lb 15.6 oz) Height: Neuro: AANDO x 3 moves all extremities with no apparent weakness CV: ++ jugular venous distention RRR without murmur, gallop, or rubs. No ectopy. Resp: diminished breath sounds Abd: +BS x4 Skin: skin color, texture, turgor normal, no rashes or lesions Ext: Trace, 1+ edema MEDICATIONS Current Facility-Administered Medications Medication Dose Route Frequency apixaban 5 mg tab(s) (ELIQUIS) 5 mg ORAL BID isosorbide dinitrate 20 mg tab(s) (ISORDIL) 20 mg ORAL TID furosemide 80 mg injection (LASIX) 80 mg INTRAVENOUS q 12 H 6a/6p acetaminophen 1,000 mg tab(s) (TYLENOL) 1,000 mg ORAL q 8 H PRN melatonin 3 mg tab(s) 3 mg ORAL DAILY (8 PM) polyethylene glycol 3350 17 g packet 17 g ORAL DAILY NaCl 0.9% iv flush bag 20 mL INTRAVENOUS PRN sodium chloride 0.9 % (flush) 2-10 mL (BD POSIFLUSH) 2-10 mL INTRAVENOUS DIRECTED PRN And perflutren lipid microspheres 1.1 mg/mL 1.3 mL injection (DEFINITY) 1.3 mL INTRAVENOUS DIRECTED PRN magnesium sulfate 1 g in D5W 100 mL 1 g INTRAVENOUS PRN Or magnesium sulfate iv piggyback in sterile water 2 g 50 mL 2 g INTRAVENOUS PRN potassium chloride ER 10-60 mEq tab(s) (KLOR-CON M10) 10-60 mEq ORAL PRN losartan 50 mg tab(s) (COZAAR) 50 mg ORAL DAILY DATA Recent Labs 01/20/25 0036 01/19/25 1744 WBC 6.85 7.92 HB 12.9* 12.9* HCT 39.5 40.3 PLT 287 272 Recent Labs 01/20/25 1728 01/20/25 1039 01/20/25 0038 01/19/25 1542 NA -- -- 141 141 K 3.3* 3.5* 3.8 3.5* CO2 -- -- 22 20* BUN -- -- 41* 39* CREAT -- -- 2.46* 2.27* GLUC -- -- 102* 119* MG -- 2.2 2.3 2.3 PAST MEDICAL HISTORY: Carlo Medina is a 44 year old male with pmhx of: HFrEF, CKD 3b, cirrhosis, HTN, LBBB, DVT REASON FOR HOSPITALIZATION: Acute on chronic HFrEF HOSPITAL COURSE: Pt admitted to stepdown. Started on IV lasix. Pt refused hydralazine, reported he felt unwell on it and stopped it. EP was consulted for consideration of ICD placement. As he has not been on GDMT for 3 continuous months, has not had regular follow up, and QRS <150ms He is currently not a candidate for ICD. He can be reconsidered for ICD in 3months if on GDMT and has cardiac follow up. To Do/Issues to communicate: Add cozaar Refusing potassium supplements. Stated that's not what he's here for. Discussed with him the reason for K supplement, he agreed to take EP consulted pt currently not ICD ccandidate ASSESSMENT AND PLAN: #HFrEF #LBBB History: LVEF 15% 09/2024. NICM (Cath 05/2024). Home meds: cozaar, bumex, isordil, hydralazine Assessment: Grossly volume overloaded, NT 45,802 Plan: Echo EP consult - currently not ICD candidate GDMT: - Beta jerome: hold - LUCRECIA/ARB/ARNI: Cozaar - MRA: hold - SGLT2i: hold - Diuretic: Lasix 80mg IV BID #Primary HTN History: Home Meds: As above Assessment: SBP 110s-130s Plan: Continue current meds Monitor Titrate as needed #HPL #Cirhosis History: Home Meds: None LDL: 127 (09/2024). TBili: pending, +Scleral icterus Plan: Lifestyle modification, Pt with Hx cirrhosis Monitor LFTs #CKD 3b History: Baseline creat appears to be 2-2.5 Assessment: Estimated Creatinine Clearance: 40.9 mL/min (A) (based on SCr of 2.46 mg/dL (H)). Plan: Monitor while diuresing Avoid nephrotoxic agents as able #Hx DVT History: On eliquis Assessment: No new concern for DVT Plan: Continue eliquis For all active hospital problems BELOW: see history assessment and plan above in Care Coordination note above Active Hospital Problems Diagnosis Acute on chronic HFrEF (heart failure with reduced ejection fraction) (HCC) Personal history of DVT (deep vein thrombosis) History of left bundle bran (more content not included)... [facility] 01-21-2025 Note HNO ID: [id number] Author: CORA SÁNCHEZ MD Service: Cardiovascular Medicine Author Type: Physician Type: Plan of Care Filed: 01/21/2025 06:30 Note Text: Patient has been refusing blood draws overnight. He wants labs to be drawn a bit late this morning. Lasix to be given later accordingly after the potassium results as his potassium was low on yesterday's labs. [facility] 01-20-2025 Note HNO ID: [id number] Author: CHRISTOPHER GRIMES, ? Service: ? Author Type: Cement Finishing Supervisor Type: Plan of Care Filed: 01/20/2025 09:02 Note Text: Reason for test claim: HVTI Eliquis Medication: Eliquis 5 mg tablets Qty: 60 tablets Day supply: 30 days Cost on Insurance: $0.00 Does patient have a deductible? No Requires Prior Authorization? No 30-day voucher available, can only be used once per lifetime. $10 copay card available for commercially insured patients. Jardiance Medication: Jardiance 10 mg tablets Qty: 30 tablets Day supply: 30 days Cost on Insurance: $0.00 Does patient have a deductible? No Requires Prior Authorization? No 14-day voucher available, can only be used once per lifetime. $10 copay card available for commercially insured patients. Farxiga Medication: Farxiga 10 mg tablets Qty: 30 tablets Day supply: 30 days Cost on Insurance: $0.00 Does patient have a deductible? No Requires Prior Authorization? No 30-day voucher available, can only be used once per lifetime. $0 copay card available for commercially insured patients. Total number of wan checks: 3 Any questions, please reach out to your medication community health coordinator. Thank you (Prices may vary at different pharmacy locations, this is the cost at [facility]) [facility] 01-19-2025 Note HNO ID: [id number] Author: MANUELA SANTOS RT(R) Service: ? Author Type: Body Make Up Artist Type: Progress Notes Filed: 01/19/2025 17:37 Note Text: Radiology Service Progress Note PATIENT NAME: Carlo Medina DATE OF SERVICE: January 19, 2025 TIME: 5:37 PM PATIENT IDENTITY VERIFICATION COMPLETED USING TWO (2) IDENTIFIERS: Name and Date of confirmed by patient verbally. FALL SCREENING: Has the patient had 2 falls in the last year or 1 fall with injury or currently using an Ambulatory Assistive Device (Walker, Cane, Wheelchair, Crutches, etc.)? Emergency Room Patient: Screened in ED PATIENT GENDER DATA: Assigned male at PATIENT RELEVANT IMPLANT DATA REVIEWED: Not Applicable PATIENT PRESENTS WITH AN IMPLANTABLE OR ATTACHED DOUGH CUTTER: No RADIOLOGY DEPARTMENT: Ultrasound PERIPHERAL IV DATA: Not applicable SIGNED BY: RT Cristine(R) January 19, 2025 5:37 PM [facility] 01-19-2025 Note SARS-COV-2 (AGENT OF COVID-19) RNA: Not detected INFLUENZA A RNA: Not detected INFLUENZA B RNA: Not detected RESPIRATORY SYNCYTIAL VIRUS (RSV) RNA: Not detected [facility] Comment on above: Performed By: #### [id number] ####[facility] [id number] [address] [facility] 01-10-2025 Discharge summary Note Date/Time January 10, 2025 8:50am [facility] Medical Records Department [address] [place] [id number] Discharge Summary 01/10/25 0841 MR#: [id number] Acct: [id number] Name: CARLO MEDINA Rep #:[id number] : 1980 44 From: Anshul Lemus DO PCP: Care Physician,No Primary Status :[facility] Prov[facility] Date of Admission: 01/04/25 Primary Care Physician: No Primary Care Phys Consultations 01/07/25 10:30 Consult: Cardiology Routine Consulting Provider: Lavon Campo Reason for Consult: heart block EMERGENT Consult: No MD Notified: Yes Date Notified: 01/07/25 Time Notified: 10:30 Method of Notification: Verbal 01/08/25 10:24 Consult: Hospice / Palliative Care Routine Consulting Provider: [facility] Reason for Consult: cardiomyopathy. Declining AICD/pacemaker. EMERGENT Consult: No Notified: Yes Date Notified: 01/08/25 Time Notified: 10:47 Method of Notification: Answering Service Reason For Visit: CHF EXACERBATION Diagnosis Discharge Diagnosis (1) HFrEF (heart failure with reduced ejection fraction): Status: Acute Code(s): I50.20 - Unspecified systolic (congestive) heart failure Plan: Patient takes Bumex as outpatient. Did recommend initiating furosemide infusion. Patient Ress reservations about that because he did not want to be limited in regards to his mobility about being tied down to IV pump. He requested the boluses instead. I did explain to him that it would likely expedite more rapid removal but also being safer on the kidneys. Expressed understanding but prefers boluses instead. So we will utilize furosemide 40 mg IV every 8 hours for the time being. Holding off on LUCRECIA inhibitors and angiotensin receptor blockers given CKD. As well as Entresto. Will start empagliflozin however. Repeat echocardiogram as previous ejection fraction has been documented as 20%. Had very lengthy conversation with he and his girlfriend at bedside about the indication for defibrillator to help defibrillate in the event of cardiac arrestsuch as ventricular fibrillation which she is at high risk for. Continues to decline that though he wishes to be full code. Will fluid restrict. Check daily weights. Did discuss the case with Dr. Almaraz. He said he would be happy to follow-up with the patient as outpatient. No acute cardiac needs at this point time so wewill hold off on cardiology consultation at present. Patient states that he is had a left heart catheterization which has been normal. States that he vomited Jardiance. Will not provide further. Explained the importance of guideline directed therapy. Tried to reassure patient that medications are meant to overall improve his cardiac function with medication. Iexplained that he is to follow up with cardiology as outpt. Explained that if does not improve, it is possible that he may require a heart transplant. Transplant has been mentioned to him before. Patient not on goal-directed therapy. Patient will follow-up with cardiology for further management. Will continue with bumetanide twice daily. Patient need to fluid restrict, check daily weights. (2) Elevated bilirubin: Status: Acute Code(s): R17 - Unspecified jaundice Plan: Trending down. Suspect due to hepatic congestion due to his cardiomyopathy. Unclear if he has cirrhosis (despite other documentation indicating that he does). (3) CKD stage 3b, GFR 30-44 ml/min: Status: Acute Code(s): N18.32 - Chronic kidney disease, stage 3b Plan: Stable. Monitor closely while on diuretics. (4) Hypokalemia: Status: Acute Code(s): E87.6 - Hypokalemia Plan: Continue replacement. Check magnesium. Likely 2/2 diuresis. (5) Heart block: Status: Acute Code(s): I45.9 - Conduction disorder, unspecified Plan: 2nd degree heart block mobitz type II. Discussed with the patient about the need for pacemaker but also for his case to be a pacemaker/AICD over the past several days. Patient does not want it at this time. He understands the risk of . I explained the patient if he does have a syncopal episode that he would need to call 911 and get sent to the nearest emergency room. However, I explained to him, that if he decides that he would want a pacemaker or AICD thathe should go to the emergency room of a larger hospital that would do that including [facility], [facility] Plan Feet edema: More notably on the left. I suspect it is related with his heart failure overall. Patient does have compressions wraps on his legs bilaterally but he stated that he was having this problem even before that was placed. I recommended keeping his legs elevated would hopefully help with that. History of PE: Continue with apixaban History of noncompliance: [facility] Patient is steadfast in regards to doing only what he wants to do despite recommendations that may go against what he would want to do, such as furosemide as above. VTE prophylaxis: Not indicated as patient is already on apixaban CODE STATUS: Addressed with patient. Patient wishes to be full code. He understands that he is at higher risk for lethal cardiac arrhythmias, such as ventricular fibrillation, given his cardiomyopathy. 01/08: Discussed with the patient's in the presence of the charge nurse as well as his bedside nurse. Asked him if he had made any decisions regards to transfer, states that he is still thinking about it. Talk to him about the needs for pacemaker as he still having the heart block and that that would not be sustainable at home and that he could but also saying that he is high likelihood of ventricular arrhythmia including ventricular fibrillation that could lead to without CPR. He had reservations because a sound like they tried to do a right heart catheterization in the past but there was some sort ofcomplications with that. Patient states that the physician who performed it stated that he messed up. Try to reassure him that he would be seen by an electrophysiology specialist that I done many of these and this is actually a different approach than performing a (what may have been) a right heart catheterization. Explained in detail about how high that is performed and the importance of that. He is still continues to say that he does not want that. Itold him that is my recommendation but again expressing that we would respect his autonomy that if he did not want a pacemaker/defibrillator that he should behospice though he is currently stable he has a hospice qualifying diagnosis given his heart failure. He stated that his girlfriend would not want people being in his house. Again offered to contact his girlfriend but he declined. He said that he would be willing to speak with hospice while he is here in the hospital. I did tell him that we are going to put pacer pads on him while he ishere in the chance that we need to transcutaneous pacing. I told him that if that is the case that he will have some discomfort with that and we will give him medications to try to diminish his discomfort is much as possible, safely. I also asked him if he had reservations about going to [facility], or much of his care had been or [facility] where he had been recently. I told him that we could gethim into another hospital to be seen by other specialists. He continued to decline any transfer at this time. 01/09: Discussed with the patient with the charge nurse, Debbie, at bedside. Again explained that our recommendation is transfer for pacemaker and defibrillator to be seen by the specialist to perform the procedure. He had asked how long the procedure would take. I told him I did not know but may be about an hour or so. He stated that would be too long. Still stating that he needed to think about it despite having 2 days already think about it and that he would need to discuss with his girlfriend and siblings. Asked him what his girlfriend want and he said that she would want him to have the pacemaker and defibrillator. And asked what his brother sister would want for him even thoughhe had not spoken to them yet, he said that they would want him to have the procedures. Again, emphasized that if he does not want any procedures then we need to again change his CODE STATUS from full code and that he should proceed with hospice care services. He continues to support being full code and is apparently okay with either dying or winding up on a ventilator if he survive CPR. I told him we are trying to avoid that is much as we are able to get him apacemaker and defibrillator. I told him quite frankly I am concerned about his long-term prognosis given that he appears to be overall getting worse though he is currently stable. Again, expressed the concern that he wants to be full codefor us to do everything but he does not want us to do certain things such as pacemakers and defibrillators and even talking to his family. I expressed that I would be very willing to discuss with his girlfriend and his siblings if he would permit. He continues to decline us contacting any family member or friends of his. I did asked the patient directly if he wanted to kill himself, he said he does not he is not suicidal. 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 Anddiscussed with him in the presence that he does not want a pacemaker at this time. That he will be discharged at home and he is at high risk of because of the cardiomyopathy and potential for V-fib arrest but also he does have second-degree Mobitz type II heart block. Did explain to him that if he changes his mind that he should go to the emergency room of a larger hospital preferably so that he can get plugged in however, if he has a syncopal episode that would be concerning for some arrhythmia and that he should call 911 immediately and go to the nearest emergency room. Medications at Discharge Home Medications apixaban 5 mg tablet (Eliquis) 5 mg PO BID 01/04/25 bumetanide 1 mg tablet 1 mg PO BID 01/04/25 isosorbide dinitrate 20 mg tablet 20 mg PO Q8H 01/04/25 Hospital Course Operations None Procedures 2-D Echocardiogram Summary of Care Provided Minutes Spent on Discharge: 35 Hospital Course: This is a 44-year-old male with a history of nonischemic cardiomyopathy with previous EF of 20%. Came in with increasing lower extremity edema and shortnessof breath. Patient was noted to have acute CHF exacerbation with a BNP of 25,000. It also did have elevated bilirubin of total of 4.32. The ED physicianread the patient has cirrhosis but I am not sure how that diagnosis came to be as I feel that his elevated bilirubin was likely due to passive congestion due to his heart failure. Since, with diuresis, his bilirubin is gone down to 2.47. So we were diuresing him and he was doing well then it was noted that the patient was having an arrhythmia which appeared to be a heart block. I looked at further and appeared to be second-degree Mobitz type II heart block. I recommended transfer for pacemaker and AICD. He wanted to speak with cardiology. He spoke with Dr. Campo of cardiology who recommended the same. Patient stated that he wanted to think about it. Patient had not made a decision over 2 days on the but endorsed that his girlfriend and family would want him to have the procedure. Evaluated the patient today, the , and he still does not want procedure. Since the patient is overall doing well and he has diuresed quite well since he has been here, I do not feel that there is any further indication for him to stay here in the hospital as he does not want transfer, he does not want hospice he is at high risk of because of the heart block and the V-fib arrest potential given his cardiomyopathy without a pacemaker and without being on goal-directed therapy. Patient is very reluctant to change any of his medications. He stated that he threw up the Jardiance is here though that was not witnessed. He is very mistrusting ofmedical staff at present and from what seems to be before. Patient will follow-up with cardiology here at [facility] as he states he wishes to be established down here. I did tell the patient that if he does change his mind about a pacemaker defibrillator to go to a larger institution emergency room to be admitted to have that performed however he has a syncopal episode or feels unwell to contact 911 and get sent to the nearest emergency room. Weight / BMI Weight Weight: 73.3 kg Body Mass Index (BMI) 21.3 ABG / Lab / Microbiology Data 01/06/25 05:10 01/10/25 05:45 Laboratory: Laboratory Results - last 24 hr 01/10/25 05:45: Sodium 139, Potassium 3.9, Chloride 102, Carbon Dioxide 26.1, Anion Gap 11, BUN 23 H, Creatinine 1.55 H, Estim Creat Clear Calc 61.74, Est GFR(MDRD) Non-Af 56 L, BUN/Creatinine Ratio 14.6, Glucose 92, Calcium 7.9, Total Bilirubin 2.47 H, AST 30, ALT 18, Alkaline Phosphatase 454 H, Total Protein 5.8 L, Albumin 2.9 L, Globulin 2.9, Albumin/Globulin Ratio 1.0 D/C Instructions DC O2, CPAP, BIPAP Needs Home O2 Discharge instructions: No Meaningful Use Info Meaningful Use Meaningful Use Diagnoses (Choose all that apply): CHF CHF LUCRECIA/ARB ordered at discharge?: No Reason LUCRECIA/ARB not ordered?: Drug Interaction (Patient preference) Documented LVEF (%): 15 Discharge Plan Admission Admit Date/Time: 01/04/25 13:40 Primary Reason for Your Visit: CHF Attending Provider: Anshul Lemus Primary Care Provider: Care Physician,No Primary Consulting Providers: Lavon Campo; Eugene Bucio; Deja Gregorio; Kaitlin Golden; Kalie Caruso; Jennifer Santiago NP; Janay Salamanca Instructions Patient Instructions: Heart Failure and Depression, Heart Failure Meds, Heart Failure Flare Up Signs, Heart Failure Make Changes Diet, Heart Failure Dc, HeartFailure Sleep Problems, Heart Failure Care, Heart Failure and Physical Activity,Heart Failure Additional Instructions / Restrictions: You had heart failure and you improved with the IV furosemide (Lasix). You willcontinue your Bumex at home. Restrict your fluid to 1.5 L (50 ounces or 6.5 cups) of fluid per day. Check your weight every day and keep a record. Take anadditional dose of Bumex if your weight goes up more than 2 pounds in 1 day or 3pounds in 1 week. If you change your mind about having a pacemaker or defibrillator, you can present yourself to any emergency room that would be preferable if you went to an institution that is larger that perform those procedures including [facility], [facility], [facility]. If you have issues in regards to you passing out and having no recollection of the event, irregular heartbeat, call 911 and go to [facility] emergency room. As we discussed, you are at high risk of because of your weak heart and your abnormal heart rhythm (second-degree heart block Mobitz type II). Discharge Orders/Prescriptions Prescriptions: Continued isosorbide dinitrate 20 mg tablet 20 mg PO Q8H bumetanide 1 mg tablet 1 mg PO BID Eliquis 5 mg tablet 5 mg PO BID Referrals / Follow Up: [facility] [Provider Group] - Within 1 Month Care Physician,No Primary [Primary Care Provider] - [facility] [Outside] - Within 2 Weeks Deja Gregorio MD [Med Staff - Active Staff] - Disposition Disposition (needs filled in before D/C Order can be placed): Home, Self Care Charges/Coding Visit Charges Inpatient E&M: 49344 Disch Hosp >30min 01/10/25 0850 <Electronically signed by Anshul Lemus DO> Cosigner Signature (if applicable): CC: Dr. Anshul Lemus DO; Dr. Deja Gregorio MD; No Primary Care Physician~ Signed [facility] Work Phone: [phone] 283-270907-14-2025 Progress note Author Anshul Lemus [facility] Note Date/Time January 10, 2025 8:41 am [facility] Medical Records Department [address] [place] [id number] Progress Note - Hospitalist 01/10/25 0811 MR#: [id number] Acct: [id number] Name: CARLO MEDINA Rep #:[id number] : 1980 44 From: Anshul Lemus DO PCP: Care Physician,No Primary Status :ADM IN Location: [place] [address] Reason for Visit Chief Complaint: Shortness of breath. Edema. Subjective Subjective No new events. Did discuss case with his family no decision yet though feeling that he that he is not ready for pacemaker at this time. Objective Data Objective Data Vital Signs: Vital Signs Temp Pulse Resp BP Pulse Ox O2 Del Method O2 Flow Rate 36.6 C 100 16 107/80 100 Room Air 2 01/10/25 03:15 07/14/25 03:15 01/10/25 03:15 01/10/25 05:37 01/10/25 03:15 01/10/25 03:15 01/04/25 22:00 Oxygen Flow Rate (L/min) 2 Oxygen Delivery Method Room Air Weight: 73.3 kg Body Mass Index (BMI) 21.3 Intake & Output: Intake and Output for Last 24 Hours 01/08/25 01/09/25 01/10/25 23:59 23:59 23:59 Intake Total 1402 / 1642 1400 / 1400 0 / 0 Output Total 1475 / 3275 3573 / 3573 500 / 500 Balance -73 / -1633 -2173 / -2173 -500 / -500 Lab / Micro Data 01/06/25 05:10 01/10/25 05:45 Labs: Laboratory Results - last 24 hr 01/10/25 05:45: Sodium 139, Potassium 3.9, Chloride 102, Carbon Dioxide 26.1, Anion Gap 11, BUN 23 H, Creatinine 1.55 H, Estim Creat Clear Calc 61.74, Est GFR(MDRD) Non-Af 56 L, BUN/Creatinine Ratio 14.6, Glucose 92, Calcium 7.9, Total Bilirubin 2.47 H, AST 30, ALT 18, Alkaline Phosphatase 454 H, Total Protein 5.8 L, Albumin 2.9 L, Globulin 2.9, Albumin/Globulin Ratio 1.0 Rhythm Strip Rhythm Strip: Sinus bradycardia Rate: 55 Ectopy: None Physical Exam Const Constitutional Narrative: Lying in bed. No acute distress. No respiratory distress. No conversational dyspnea. On room air. HEENT head/scalp atraumatic and moist oral mucous membranes Resp normal respiratory effort and no retractions Assessment & Plan Assessment/Plan (1) HFrEF (heart failure with reduced ejection fraction): PLAN: Patient takes Bumex as outpatient. Did recommend initiating furosemide infusion. Patient Ress reservations about that because he did not want to be limited in regards to his mobility about being tied down to IV pump. He requested the boluses instead. I did explain to him that it would likely expedite more rapid removal but also being safer on the kidneys. Expressed understanding but prefers boluses instead. So we will utilize furosemide 40 mg IV every 8 hours for the time being. Holding off on LUCRECIA inhibitors and angiotensin receptor blockers given CKD. As well as Entresto. Will start empagliflozin however. Repeat echocardiogram as previous ejection fraction has been documented as 20%. Had very lengthy conversation with he and his girlfriend at bedside about the indication for defibrillator to help defibrillate in the event of cardiac arrestsuch as ventricular fibrillation which she is at high risk for. Continues to decline that though he wishes to be full code. Will fluid restrict. Check daily weights. Did discuss the case with Dr. Almaraz. He said he would be happy to follow-up with the patient as outpatient. No acute cardiac needs at this point time so piyush hold off on cardiology consultation at present. Patient states that he is had a left heart catheterization which has been normal. States that he vomited Jardiance. Will not provide further. Explained the importance of guideline directed therapy. Tried to reassure patient that medications are meant to overall improve his cardiac function with medication. Iexplained that he is to follow up with cardiology as outpt. Explained that if does not improve, it is possible that he may require a heart transplant. Transplant has been mentioned to him before. Patient not on goal-directed therapy. Patient will follow-up with cardiology for further management. Will continue with bumetanide twice daily. Patient need to fluid restrict, check daily weights. (2) Elevated bilirubin: PLAN: Trending down. Suspect due to hepatic congestion due to his cardiomyopathy. Unclear if he has cirrhosis (despite other documentation indicating that he does). (3) CKD stage 3b, GFR 30-44 ml/min: PLAN: Stable. Monitor closely while on diuretics. (4) Hypokalemia: PLAN: Continue replacement. Check magnesium. Likely 2/2 diuresis. 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 Discussed with the patient about the need for pacemaker but also for his case to be a pacemaker/AICD over the past several days. Patient does not want it at this time. He understands the risk of . I explained the patient if he does have a syncopal episode that he would need to call 911 and get sent to the nearest emergency room. However, I explained to him, that if he decides that he would want a pacemaker or AICD that he should go to the emergency room of a larger hospital that would do that including [facility], [facility] PLAN: Plan Feet edema: More notably on the left. I suspect it is related with his heart failure overall. Patient does have compressions wraps on his legs bilaterally but he stated that he was having this problem even before that was placed. I recommended keeping his legs elevated would hopefully help with that. History of PE: Continue with apixaban History of noncompliance: Per [facility] Patient is steadfast in regards to doing only what he wants to do despite recommendations that may go against what he would want to do, such as furosemide as above. VTE prophylaxis: Not indicated as patient is already on apixaban CODE STATUS: Addressed with patient. Patient wishes to be full code. He understands that he is at higher risk for lethal cardiac arrhythmias, such as ventricular fibrillation, given his cardiomyopathy. 01/08: Discussed with the patient's in the presence of the charge nurse as well as his bedside nurse. Asked him if he had made any decisions regards to transfer, states that he is still thinking about it. Talk to him about the needs for pacemaker as he still having the heart block and that that would not be sustainable at home and that he could but also saying that he is high likelihood of ventricular arrhythmia including ventricular fibrillation that could lead to without CPR. He had reservations because a sound like they tried to do a right heart catheterization in the past but there was some sort ofcomplications with that. Patient states that the physician who performed it stated that he messed up. Try to reassure him that he would be seen by an electrophysiology specialist that I done many of these and this is actually a different approach than performing a (what may have been) a right heart catheterization. Explained in detail about how high that is performed and the importance of that. He is still continues to say that he does not want that. Itold him that is my recommendation but again expressing that we would respect his autonomy that if he did not want a pacemaker/defibrillator that he should behospice though he is currently stable he has a hospice qualifying diagnosis given his heart failure. He stated that his girlfriend would not want people being in his house. Again offered to contact his girlfriend but he declined. He said that he would be willing to speak with hospice while he is here in the hospital. I did tell him that we are going to put pacer pads on him while he ishere in the chance that we need to transcutaneous pacing. I told him that if that is the case that he will have some discomfort with that and we will give him medications to try to diminish his discomfort is much as possible, safely. I also asked him if he had reservations about going to [facility], or much of his care had been or [facility] where he had been recently. I told him that we could gethim into another hospital to be seen by other specialists. He continued to decline any transfer at this time. 01/09: Discussed with the patient with the charge nurse, Debbie, at bedside. Again explained that our recommendation is transfer for pacemaker and defibrillator to be seen by the specialist to perform the procedure. He had asked how long the procedure would take. I told him I did not know but may be about an hour or so. He stated that would be too long. Still stating that he needed to think about it despite having 2 days already think about it and that he would need to discuss with his girlfriend and siblings. Asked him what his girlfriend want and he said that she would want him to have the pacemaker and defibrillator. And asked what his brother sister would want for him even thoughhe had not spoken to them yet, he said that they would want him to have the procedures. Again, emphasized that if he does not want any procedures then we need to again change his CODE STATUS from full code and that he should proceed with hospice care services. He continues to support being full code and is apparently okay with either dying or winding up on a ventilator if he survive CPR. I told him we are trying to avoid that is much as we are able to get him apacemaker and defibrillator. I told him quite frankly I am concerned about his long-term prognosis given that he appears to be overall getting worse though he is currently stable. Again, expressed the concern that he wants to be full codefor us to do everything but he does not want us to do certain things such as pacemakers and defibrillators and even talking to his family. I expressed that I would be very willing to discuss with his girlfriend and his siblings if he would permit. He continues to decline us contacting any family member or friends of his. I did asked the patient directly if he wanted to kill himself, he said he does not he is not suicidal. 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 Anddiscussed with him in the presence that he does not want a pacemaker at this time. That he will be discharged at home and he is at high risk of because of the cardiomyopathy and potential for V-fib arrest but also he does have second- degree Mobitz type II heart block. Did explain to him that if he changes his mind that he should go to the emergency room of a larger hospital preferably so that he can get plugged in however, if he has a syncopal episode that would be concerning for some arrhythmia and that he should call 911 immediately and go to the nearest emergency room. 01/10/25840 <Electronically signed by Anshul Lemus DO> Cosigner Signature (if applicable): CC: ~ Signed [facility] Work Phone: 1(780) 651-371807-14-2025 Discharge summary [facility] Medical Records Department [address] [place] [id number] Discharge Summary 01/10/25840 MR#: [id number] Acct: [id number] Name: CARLO MEDINA Rep #:[id number] : 1980 44 From: Anshul Lemus DO PCP: Care Physician,No Primary Status :ADM IN Location: [place] [address] Providers Date of Admission: 01/04/25 Primary Care Physician: No Primary Care Phys Consultations 01/07/25 10:30 Consult: Cardiology Routine Consulting Provider: Lavon Campo Reason for Consult: heart block EMERGENT Consult: No MD Notified: Yes Date Notified: 01/07/25 Time Notified: 10:30 Method of Notification: Verbal 01/08/25 10:24 Consult: Hospice / Palliative Care Routine Consulting Provider: [facility] Reason for Consult: cardiomyopathy. Declining AICD/pacemaker. EMERGENT Consult: No Notified: Yes Date Notified: 01/08/25 Time Notified: 10:47 Method of Notification: Answering Service Reason For Visit: CHF EXACERBATION Diagnosis Discharge Diagnosis (1) HFrEF (heart failure with reduced ejection fraction): Status: Acute Code(s): I50.20 - Unspecified systolic (congestive) heart failure Plan: Patient takes Bumex as outpatient. Did recommend initiating furosemide infusion. Patient Ress reservations about that because he did not want to be limited in regards to his mobility about being tieddown to IV pump. He requested the boluses instead. I did explain to him that it would likely expedite more rapid removal but also being safer on the kidneys. Expressed understanding but prefers boluses instead. So we will utilize furosemide 40 mg IV every 8 hours for the time being. Holding off on LUCRECIA inhibitors and angiotensin receptor blockers given CKD. As well as Entresto. Will start empagliflozin however. Repeat echocardiogram as previous ejection fraction has been documented as 20%. Had very lengthy conversation with he and his girlfriend at bedside about the indication for defibrillator to help defibrillate in the event of cardiac arrestsuch as ventricular fibrillation which she is at high risk for. Continues to decline that though he wishes to be full code. Will fluid restrict. Check daily weights. Did discuss the case with Dr. Almaraz. He said he would be happy to follow-up with the patient as outpatient. No acute cardiac needs at this point time so wewill hold off on cardiology consultation at present. Patient states that he is had a left heart catheterization which has been normal. States that he vomited Jardiance. Will not provide further. Explained the importance of guideline directed therapy. Tried to reassure patient that medications are meant to overall improve his cardiacfunction with medication. Iexplained that he is to follow up with cardiology as outpt. Explained that if does not improve, it is possible that he may require a heart transplant. Transplant has been mentioned to him before. Patient not on goal-directed therapy. Patient will follow-up with cardiology for further management. Will continue with bumetanide twice daily. Patient need to fluid restrict, check daily weights. (2) Elevated bilirubin: Status: Acute Code(s): R17 - Unspecified jaundice Plan: Trending down. Suspect due to hepatic congestion due to his cardiomyopathy. Unclear if he has cirrhosis (despite other documentation indicating that he does). (3) CKD stage 3b, GFR 30-44 ml/min: Status: Acute Code(s): N18.32 - Chronic kidney disease, stage 3b Plan: Stable. Monitor closely while on diuretics. (4) Hypokalemia: Status: Acute Code(s): E87.6 - Hypokalemia Plan: Continue replacement. Check magnesium. Likely 2/2 diuresis. (5) Heart block: Status: Acute Code(s): I45.9 - Conduction disorder, unspecified Plan: 2nd degree heart block mobitz type II. Discussed with the patient about the need for pacemaker but also for his case to be a pacemaker/AICD over the past several days. Patient does not want it at this time. He understands the risk of . I explained the patient if he does have a syncopal episodethat he would need to call 911 and get sent to the nearest emergency room. However, I explained to h im, that if he decides that he would want a pacemaker or AICD thathe should go to the emergency room of a larger hospital that would do that including [facility], [facility] Plan Feet edema: More notably on the left. I suspect it is related with his heart failure overall. Patient does have compressions wraps on his legs bilaterally but he stated that he was having this problem even before that was placed. I recommended keeping his legs elevated would hopefully help with that. History of PE: Continue with apixaban History of noncompliance: Per previous documentation [facility] Patient is steadfast in regards to doing only what he wants to do despite recommendations that may go against what he would want to do, such as furosemide as above. VTE prophylaxis: Not indicated as patient is already on apixaban CODE STATUS: Addressed with patient. Patient wishes to be full code. He understands that he is at higher risk for lethal cardiac arrhythmias, such as ventricular fibrillation, given his cardiomyopathy. 01/08: Discussed with the patient's in the presence of the charge nurse as well as his bedside nurse. Asked him if he had made any decisions regards to transfer, states that he is still thinking aboutit. Talk to him about the needs for pacemaker as he still having the heart block and that that would not be sustainable at home and that he could but also saying that he is high likelihood of ventricular arrhythmia including ventricular fibrillation that could lead to without CPR. He had reservations because a sound like they tried to do a right heart catheterization in the past but there was some sort ofcomplications with that. Patient states that the physician who performed it stated that he messed up. Try to reassure him that he would be seen by an electrophysiology specialist that I done many of these and this is actually a different approach than performing a (what may havebeen) a right heart catheterization. Explained in detail about how high that is performed and the im portance of that. He is still continues to say that he does not want that. Itold him that is my recommendation but again expressing that we would respect his autonomy that if he did not want a pacemaker/defibrillator that he should behospice though he is currently stable he has a hospice qualifyingdiagnosis given his heart failure. He stated that his girlfriend would not want people being in hishouse. Again offered to contact his girlfriend but he declined. He said that he would be willing tospeak with hospice while he is here in the hospital. I did tell him that we are going to put pacer pads on him while he ishere in the chance that we need to transcutaneous pacing. I told him that if t hat is the case that he will have some discomfort with that and we will give him medications to tryto diminish his discomfort is much as possible, safely. I also asked him if he had reservations about going to [facility], or much of his care had been or [facility] where he had been recently. I told him thatwe could gethim into another hospital to be seen by other specialists. He continued to decline any t ransfer at this time. 01/09: Discussed with the patient with the charge nurse, Debbie, at bedside. Again explained that ourrecommendation is transfer for pacemaker and defibrillator to be seen by the specialist to perform the procedure. He had asked how long the procedure would take. I told him I did not know but may be about an hour or so. He stated that would be too long. Still stating that he needed to think about it despite having 2 days already think about it and that he would need to discuss with his girlfriendand siblings. Asked him what his girlfriend want and he said that she would want him to have the pacemaker and defibrillator. And asked what his brother sister would want for him even thoughhe had not spoken to them yet, he said that they would want him to have the procedures. Again, emphasized that if he does not want any procedures then we need to again change his CODE STATUS from full code andthat he should proceed with hospice care services. He continues to support being full code and is apparently okay with either dying or winding up on a ventilator if he survive CPR. I told him we are trying to avoid that is much as we are able to get him apacemaker and defibrillator. I told him quite frankly I am concerned about his long-term prognosis given that he appears to be overall getting worse though he is currently stable. Again, expressed the concern that he wants to be full codefor usto do everything but he does not want us to do certain things such as pacemakers and defibrillatorsand even talking to his family. I expressed that I would be very willing to discuss with his girlfrdaniella cooper and his siblings if he would permit. He continues to decline us contacting any family member orfriends of his. I did asked the patient directly if he wanted to kill himself, he said he does not he is not suicidal. 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 Anddiscussed with him in the presence that he does not want a pacemaker at this time. That he will be discharged at home and he is at high risk of because of the cardiomyopathy and potential for V-fib arrest but also he does have second-degree Mobitz type II heart block. Did explain to him that if he changes his mind that he should go to the emergency room of a larger hospital preferably so that he can get pluggedin however, if he has a syncopal episode that would be concerning for some arrhythmia and that he should call 911 immediately and go to the nearest emergency room. Medications at Discharge Home Medications apixaban 5 mg tablet (Eliquis) 5 mg PO BID 01/04/25 bumetanide 1 mg tablet 1 mg PO BID 01/04/25 isosorbide dinitrate 20 mg tablet 20 mg PO Q8H 01/04/25 Hospital Course Operations None Procedures 2-D Echocardiogram Summary of Care Provided Minutes Spent on Discharge: 35 Hospital Course: This is a 44-year-old male with a history of nonischemic cardiomyopathy with previous EF of 20%. Came in with increasing lower extremity edema and shortnessof breath. Patient was noted to have acute CHF exacerbation with a BNP of 25,000. It also did have elevated bilirubin of total of 4.32. The ED p monroeread the patient has cirrhosis but I am not sure how that diagnosis came to be as I feel that his elevated bilirubin was likely due to passive congestion due to his heart failure. Since, withdiuresis, his bilirubin is gone down to 2.47. So we were diuresing him and he was doing well then it was noted that the patient was having an arrhythmia which appeared to be a heart block. I looked at further and appeared to be second-degree Mobitz type II heart block. I recommended transfer for pacemaker and AICD. He wanted to speak with cardiology. He spoke with Dr. Campo of cardiology who recommended the same. Patient stated that he wanted to think about it. Patient had not made a decisionover 2 days on the but endorsed that his girlfriend and family would want him to have the procedure. Evaluated the patient today, the , and he still does not want procedure. Since the patient is overall doing well and he has diuresed quite well since he has been here, I do not feel that there is any further indication for him to stay here in the hospital as he does not want transfer, he does not want hospice he is at high risk of because of the heart block and the V- fib arrest potential given his cardiomyopathy without a pacemaker and without being on goal-directed therapy. Patient is very reluctant to change any of his medications. He stated that he threw up the Jardiance is here though that was not witnessed. He is very mistrusting ofmedical staff at present and from what seems to be before. Patient will follow-up with cardiology here at [facility] as he states he wishes to be established down here. I did tell the patient that if he does change his mind about a pacemaker defibrillator to go to a larger institution emergency room to be admitted to have that performed however he has a syncopal episode or feels unwell to contact 911 and get sent to the nearest emergency room. Weight / BMI Weight Weight: 73.3 kg Body Mass Index (BMI) 21.3 ABG / Lab / Microbiology Data 01/06/25 05:10 01/10/25 05:45 Laboratory: Laboratory Results - last 24 hr 01/10/25 05:45: Sodium 139, Potassium 3.9, Chloride 102, Carbon Dioxide 26.1, Anion Gap 11, BUN 23 H, Creatinine 1.55 H, Estim Creat Clear Calc 61.74, Est GFR(MDRD) Non-Af 56 L, BUN/Creatinine Ratio 14.6, Glucose 92, Calcium 7.9, Total Bilirubin 2.47 H, AST 30, ALT 18, Alkaline Phosphatase 454 H, Total Protein 5.8 L, Albumin 2.9 L, Globulin 2.9, Albumin/Globulin Ratio 1.0 D/C Instructions DC O2, CPAP, BIPAP Needs Home O2 Discharge instructions: No Meaningful Use Info Meaningful Use Meaningful Use Diagnoses (Choose all that apply): CHF CHF LUCRECIA/ARB ordered at discharge?: No Reason LUCRECIA/ARB not ordered?: Drug Interaction (Patient preference) Documented LVEF (%): 15 Discharge Plan Admission Admit Date/Time: 01/04/25 13:40 Primary Reason for Your Visit: CHF Attending Provider: Anshul Lemus Primary Care Provider: Care Physician,No Primary Consulting Providers: Lavon Campo; Eugene Bucio; Deja Gregorio; Kaitlin Golden; Kalie Caruso; Jennifer Santiago NP; Janay Salamanca Instructions Patient Instructions: Heart Failure and Depression, Heart Failure Meds, Heart Failure Flare Up Signs, Heart Failure Make Changes Diet, Heart Failure Dc, HeartFailure Sleep Problems, Heart Failure Care, Heart Failure and Physical Activity,Heart Failure Additional Instructions / Restrictions: You had heart failure and you improved with the IV furosemide (Lasix). You willcontinue your Bumex at home. Restrict your fluid to 1.5 L (50 ounces or 6.5 cups) of fluid per day. Check your weight every day and keep a record. Take anadditional dose of Bumex if your weight goes up more than 2 poundsin 1 day or 3pounds in 1 week. If you change your mind about having a pacemaker or defibrillator, you can present yourself to any emergency room that would be preferable if you went to an institutionthat is larger that perform those procedures including [facility], [facility], [facility], [facility]. If you have issues in regards to you passing out and having no recollection of the event, irregular heartbeat, call 911 and go to [facility] emergency room. As we discussed, you are at high risk of because of your weak heart and your abnormal heart rhythm (second-degree heart block Mobitz type II). Discharge Orders/Prescriptions Prescriptions: Continued isosorbide dinitrate 20 mg tablet 20 mg PO Q8H bumetanide 1 mg tablet 1 mg PO BID Eliquis 5 mg tablet 5 mg PO BID Referrals / Follow Up: [facility] [Provider Group] - Within 1 Month Care Physician,No Primary [Primary Care Provider] - [facility] [Outside] - Within 2 Weeks Deja Gregorio MD [Med Staff - Active Staff] - Disposition Disposition (needs filled in before D/C Order can be placed): Home, Self Care Charges/Coding Visit Charges Inpatient E&M: 52664 Disch Hosp >30min 01/10/25 0850 Cosigner Signature (if applicable): CC: Dr. Anshul Lemus DO; Dr. Deja Gregorio MD; No Primary Care Physician~ Signed [facility]07-14-2025 [facility] Medical Records Department [address] [place] [address] Discharge Summary 01/10/25 0841 MR#: [id number] Acct: [id number] Name: CARLO MEDINA Rep #: [id number] : 1980 44 From: Anshul Lemus DO PCP: Care Physician,No Primary Status:ADM IN Location: [place] [address] Providers Date of Admission: 01/04/25 Primary Care Physician: No Primary Care Phys Consultations 01/07/25 10:30 Consult: Cardiology Routine Consulting Provider: Lavon Campo Reason for Consult: heart block EMERGENT Consult: No Notified: Yes Date Notified: 01/07/25 Time Notified: 10:30 Method of Notification: Verbal 01/08/25 10:24 Consult: Hospice / Palliative Care Routine Consulting Provider: [facility] Reason for Consult: cardiomyopathy. Declining AICD/pacemaker. EMERGENT Consult: No Notified: Yes Date Notified: 01/08/25 Time Notified: 10:47 Method of Notification: Answering Service Reason For Visit: CHF EXACERBATION Diagnosis Discharge Diagnosis (1) HFrEF (heart failure with reduced ejection fraction): Status: Acute Code(s): I50.20 - Unspecified systolic (congestive) heart failure Plan: Patient takes Bumex as outpatient. Did recommend initiating furosemide infusion. Patient Ress reservations about that because he did not want to be limited in regards to his mobility about being tied down to IV pump. He requested the boluses instead. I did explain to him that it would likely expedite more rapid removal but also being safer on the kidneys. Expressed understanding but prefers boluses instead. So we will utilize furosemide 40 mg IV every 8 hours for the time being. Holding off on LUCRECIA inhibitors and angiotensin receptor blockers given CKD. As well as Entresto. Will start empagliflozin however. Repeat echocardiogram as previous ejection fraction has been documented as 20%. Had very lengthy conversation with he and his girlfriend at bedside about the indication for defibrillator to help defibrillate in the event of cardiac arrest such as ventricular fibrillation which she is at high risk for. Continues to decline that though he wishes to be full code. Will fluid restrict. Check daily weights. Did discuss the case with Dr. Almaraz. He said he would be happy to follow-up with the patient as outpatient. No acute cardiac needs at this point time so we will hold off on cardiology consultation at present. Patient states that he is had a left heart catheterization which has been normal. States that he vomited Jardiance. Will not provide further. Explained the importance of guideline directed therapy. Tried to reassure patient that medications are meant to overall improve his cardiac function with medication. I explained that he is to follow up with cardiology as outpt. Explained that if does not improve, it is possible that he may require a heart transplant. Transplant has been mentioned to him before. Patient not on goal-directed therapy. Patient will follow-up with cardiology for further management. Will continue with bumetanide twice daily. Patient need to fluid restrict, check daily weights. (2) Elevated bilirubin: Status: Acute Code(s): R17 - Unspecified jaundice Plan: Trending down. Suspect due to hepatic congestion due to his cardiomyopathy. Unclear if he has cirrhosis (despite other documentation indicating that he does). (3) CKD stage 3b, GFR 30-44 ml/min: Status: Acute Code(s): N18.32 - Chronic kidney disease, stage 3b Plan: Stable. Monitor closely while on diuretics. (4) Hypokalemia: Status: Acute Code(s): E87.6 - Hypokalemia Plan: Continue replacement. Check magnesium. Likely 2/2 diuresis. (5) Heart block: Status: Acute Code(s): I45.9 - Conduction disorder, unspecified Plan: 2nd degree heart block mobitz type II. Discussed with the patient about the need for pacemaker but also for his case to be a pacemaker/AICD over the past several days. Patient does not want it at this time. He understands the risk of . I explained the patient if he does have a syncopal episode that he would need to call 911 and get sent to the nearest emergency room. However, I explained to him, that if he decides that he would want a pacemaker or AICD that he should go to the emergency room of a larger hospital that would do that including [facility], [facility] Plan Feet edema: More notably on the left. I suspect it is related with his heart failure overall. Patient does have compressions wraps on his legs bilaterally but he stated that he was having this problem even before that was placed. I recommended keeping his legs elevated would hopefully help with that. History of PE: Continue with apixaban History of noncompliance: Per previous documentation from [facility] [place] as well as [facility]. Patient is steadfast in regards to doing only what he wants to do despite (more content not included)...[facility]07-14-[address] note [facility] Medical Records Department [address] [place] [address] Progress Note - Hospitalist 01/10/25 08 MR#: [id number] Acct: [id number] Name: CARLO MEDINA Rep #:[id number] : 1980 44 From: Anshul Lemus DO PCP: Care Physician,No Primary Status :ADM IN Location: [place] [address] Reason for Visit Chief Complaint: Shortness of breath. Edema. Subjective Subjective No new events. Did discuss case with his family no decision yet though feeling that he that he is not ready for pacemaker at this time. Objective Data Objective Data Vital Signs: Vital Signs Temp Pulse Resp BP Pulse Ox O2 Del Method O2 Flow Rate 36.6 C 100 16 107/80 100 Room Air 2 01/10/25 03:15 01/10/25 03:15 01/10/25 03:15 01/10/25 05:37 01/10/25 03:15 01/10/25 03:15 01/04/25 22:00 Oxygen Flow Rate (L/min) 2 Oxygen Delivery Method Room Air Weight: 73.3 kg Body Mass Index (BMI) 21.3 Intake & Output: Intake and Output for Last 24 Hours 01/08/25 01/09/25 01/10/25 23:59 23:59 23:59 Intake Total 1402 / 1642 1400 / 1400 0 / 0 Output Total 1475 / 3275 3573 / 3573 500 / 500 Balance -73 / -1633 -2173 / -2173 -500 / -500 Lab / Micro Data 01/06/25 05:10 01/10/25 05:45 Labs: Laboratory Results - last 24 hr 01/10/25 05:45: Sodium 139, Potassium 3.9, Chloride 102, Carbon Dioxide 26.1, Anion Gap 11, BUN 23 H, Creatinine 1.55 H, Estim Creat Clear Calc 61.74, Est GFR(MDRD) Non-Af 56 L, BUN/Creatinine Ratio 14.6, Glucose 92, Calcium 7.9, Total Bilirubin 2.47 H, AST 30, ALT 18, Alkaline Phosphatase 454 H, Total Protein 5.8 L, Albumin 2.9 L, Globulin 2.9, Albumin/Globulin Ratio 1.0 Rhythm Strip Rhythm Strip: Sinus bradycardia Rate: 55 Ectopy: None Physical Exam Const Constitutional Narrative: Lying in bed. No acute distress. No respiratory distress. No conversational dyspnea. On room air. HEENT head/scalp atraumatic and moist oral mucous membranes Resp normal respiratory effort and no retractions Assessment & Plan Assessment/Plan (1) HFrEF (heart failure with reduced ejection fraction): PLAN: Patient takes Bumex as outpatient. Did recommend initiating furosemide infusion. Patient Ressreservations about that because he did not want to be limited in regards to his mobility about being tied down to IV pump. He requested the boluses instead. I did explain to him that it would likely e xpedite more rapid removal but also being safer on the kidneys. Expressed understanding but prefersboluses instead. So we will utilize furosemide 40 mg IV every 8 hours for the time being. Holding off on LUCRECIA inhibitors and angiotensin receptor blockers given CKD. As well as Entresto. Will start empagliflozin however. Repeat echocardiogram as previous ejection fraction has been documented as 20%. Had very lengthy conversation with he and his girlfriend at bedside about the indication for defibrillator to help defibrillate in the event of cardiac arrestsuch as ventricular fibrillation which she is at high risk for. Continues to decline that though he wishes to be full code. Will fluid restrict. Check daily weights. Did discuss the case with Dr. Almaraz. He said he would be happy to follow-up with the patient as outpatient. No acute cardiac needs at this point time so piyush hold off on cardiology consultation at present. Patient states that he is had a left heart catheterization which has been normal. States that he vomited Jardiance. Will not provide further. Explained the importance of guideline directed therapy. Tried to reassure patient that medications are meant to overall improve his cardiacfunction with medication. Iexplained that he is to follow up with cardiology as outpt. Explained that if does not improve, it is possible that he may require a heart transplant. Transplant has been mentioned to him before. Patient not on goal-directed therapy. Patient will follow-up with cardiology for further management. Will continue with bumetanide twice daily. Patient need to fluid restrict, check daily weights. (2) Elevated bilirubin: PLAN: Trending down. Suspect due to hepatic congestion due to his cardiomyopathy. Unclear if he has cirrhosis (despite other documentation indicating that he does). (3) CKD stage 3b, GFR 30-44 ml/min: PLAN: Stable. Monitor closely while on diuretics. (4) Hypokalemia: PLAN: Continue replacement. Check magnesium. Likely 2/2 diuresis. 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 Discussed with the patient about the need for pacemaker but also for his case to be a pacemaker/AICD over the past several days. Patient does not want it at this time. He understands the risk of . I explained the patient if he does have a syncopal episode that he would need to call 911 and get sent to the nearest emergency room. However, I explained to him, that if he decides that he would want a pacemaker or AICD that he should go to the emergency room of a larger hospital that would do that including [facility], [facility]. PLAN: Plan Feet edema: More notably on the left. I suspect it is related with his heart failure overall. Patient does have compressions wraps on his legs bilaterally but he stated that he was having this problem even before that was placed. I recommended keeping his legs elevated would hopefully help with that. History of PE: Continue with apixaban History of noncompliance: Per previous documentation from [facility] [place] [facility] Patient is steadfast in regards to doing only what he wants to do despite recommendations that may go against what he would want to do, such as furosemide as above. VTE prophylaxis: Not indicated as patient is already on apixaban CODE STATUS: Addressed with patient. Patient wishes to be full code. He understands that he is at higher risk for lethal cardiac arrhythmias, such as ventricular fibrillation, given his cardiomyopathy. 01/08: Discussed with the patient's in the presence of the charge nurse as well as his bedside nurse. Asked him if he had made any decisions regards to transfer, states that he is still thinking aboutit. Talk to him about the needs for pacemaker as he still having the heart block and that that would not be sustainable at home and that he could but also saying that he is high likelihood of ventricular arrhythmia including ventricular fibrillation that could lead to without CPR. He had reservations because a sound like they tried to do a right heart catheterization in the past but there was some sort ofcomplications with that. Patient states that the physician who performed it stated that he messed up. Try to reassure him that he would be seen by an electrophysiology specialist that I done many of these and this is actually a different approach than performing a (what may havebeen) a right heart catheterization. Explained in detail about how high that is performed and the im portance of that. He is still continues to say that he does not want that. Itold him that is my recommendation but again expressing that we would respect his autonomy that if he did not want a pacemaker/defibrillator that he should behospice though he is currently stable he has a hospice qualifyingdiagnosis given his heart failure. He stated that his girlfriend would not want people being in hishouse. Again offered to contact his girlfriend but he declined. He said that he would be willing tospeak with hospice while he is here in the hospital. I did tell him that we are going to put pacer pads on him while he ishere in the chance that we need to transcutaneous pacing. I told him that if t hat is the case that he will have some discomfort with that and we will give him medications to tryto diminish his discomfort is much as possible, safely. I also asked him if he had reservations about going to [facility], or much of his care had been or [facility] where he had been recently. I told him thatwe could gethim into another hospital to be seen by other specialists. He continued to decline any t ransfer at this time. 01/09: Discussed with the patient with the charge nurse, Debbie, at bedside. Again explained that ourrecommendation is transfer for pacemaker and defibrillator to be seen by the specialist to perform the procedure. He had asked how long the procedure would take. I told him I did not know but may be about an hour or so. He stated that would be too long. Still stating that he needed to think about it despite having 2 days already think about it and that he would need to discuss with his girlfriendand siblings. Asked him what his girlfriend want and he said that she would want him to have the pacemaker and defibrillator. And asked what his brother sister would want for him even thoughhe had not spoken to them yet, he said that they would want him to have the procedures. Again, emphasized that if he does not want any procedures then we need to again change his CODE STATUS from full code andthat he should proceed with hospice care services. He continues to support being full code and is apparently okay with either dying or winding up on a ventilator if he survive CPR. I told him we are trying to avoid that is much as we are able to get him apacemaker and defibrillator. I told him quite frankly I am concerned about his long-term prognosis given that he appears to be overall getting worse though he is currently stable. Again, expressed the concern that he wants to be full codefor usto do everything but he does not want us to do certain things such as pacemakers and defibrillatorsand even talking to his family. I expressed that I would be very willing to discuss with his girlfri allison and his siblings if he would permit. He continues to decline us contacting any family member orfriends of his. I did asked the patient directly if he wanted to kill himself, he said he does not he is not suicidal. 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 Anddiscussed with him in the presence that he does not want a pacemaker at this time. That he will be discharged at home and he is at high risk of because of the cardiomyopathy and potential for V-fib arrest but also he does have second-degree Mobitz type II heart block. Did explain to him that if he changes his mind that he should go to the emergency room of a larger hospital preferably so that he can get pluggedin however, if he has a syncopal episode that would be concerning for some arrhythmia and that he should call 911 immediately and go to the nearest emergency room. 01/10/25 0841 Cosigner Signature (if applicable): CC: ~ Signed [facility]07-13-2025 Progress note Author Anshul Lemus [facility] Note Date/Time January 09, 2025 12:[address] [facility] Medical Records Department [address] [place] [address] Progress Note - Hospitalist 01/09/2548 MR#: [id number] Acct: [id number] Name: ADAMCARLO L Rep #:[id number] : 1980 44 From: Anshul Lemus DO PCP: Care Physician,No Primary Status :ADM IN Location: [place] [address] Reason for Visit Reason for Visit: Diagnoses Hypokalemia (01/04/25) Conduction disorder, unspecified (01/04/25) Unspecified systolic (congestive) heart failure (01/04/25) Chronic kidney disease, stage 3b (01/04/25) Unspecified jaundice (01/04/25) Subjective Subjective Still wanting to think about pacemaker/defibrillator. Wants to talk to his girlfriend and brother or sister. Was unhappy that his girlfriend was contactedby hospice yesterday. Objective Data Objective Data Vital Signs: Vital Signs Temp Pulse Resp BP Pulse Ox O2 Del Method O2 Flow Rate 37.2 C 94 16 105/80 98 Room Air 2 01/09/25 03:00 01/09/25 03:00 01/09/25 03:00 01/09/25 05:10 01/09/25 03:00 01/09/25 03:00 01/04/25 22:00 Oxygen Flow Rate (L/min) 2 Oxygen Delivery Method Room Air Weight: 77.1 kg Body Mass Index (BMI) 22.4 Intake & Output: Intake and Output for Last 24 Hours 01/07/25 01/08/25 01/09/25 23:59 23:59 23:59 Intake Total 2074 / 2536 1402 / 1642 500 / 500 Output Total 3602 / 4352 1475 / 3275 1800 / 1800 Balance -1528 / -1816 -73 / -1633 -1300 / -1300 Lab / Micro Data 01/06/25 05:10 01/09/25 06:35 Labs: Laboratory Results - last 24 hr 01/08/25 08:50: Sodium 141, Potassium 3.8, Chloride 101, Carbon Dioxide 28.2, Anion Gap 12, BUN 23 H, Creatinine 1.83 H, Estim Creat Clear Calc 54.58, Est GFR(MDRD) Non-Af 46 L, BUN/Creatinine Ratio 12.6, Glucose 100 H, Calcium 8.3 01/09/25 06:35: Sodium 140, Potassium 3.8, Chloride 102, Carbon Dioxide 27.2, Anion Gap 11, BUN 25 H, Creatinine 1.70 H, Estim Creat Clear Calc 59.21, Est GFR(MDRD) Non-Af 50 L, BUN/Creatinine Ratio 14.5, Glucose 106 H, Calcium 7.9 Rhythm Strip Rhythm Strip: Sinus bradycardia Rate: 55 Ectopy: None Physical Exam Const Constitutional Narrative: Flat affect. Lying in bed. Nontoxic. On room air. HEENT head/scalp atraumatic and moist oral mucous membranes Resp normal respiratory effort and no retractions Psych Psych Narrative: Flat affect Assessment & Plan Assessment/Plan (1) HFrEF (heart failure with reduced ejection fraction): PLAN: Patient takes Bumex as outpatient. Did recommend initiating furosemide infusion. Patient Ress reservations about that because he did not want to be limited in regards to his mobility about being tied down to IV pump. He requested the boluses instead. I did explain to him that it would likely expedite more rapid removal but also being safer on the kidneys. Expressed understanding but prefers boluses instead. So we will utilize furosemide 40 mg IV every 8 hours for the time being. Holding off on LUCRECIA inhibitors and angiotensin receptor blockers given CKD. As well as Entresto. Will start empagliflozin however. Repeat echocardiogram as previous ejection fraction has been documented as 20%. Had very lengthy conversation with he and his girlfriend at bedside about the indication for defibrillator to help defibrillate in the event of cardiac arrestsuch as ventricular fibrillation which she is at high risk for. Continues to decline that though he wishes to be full code. Will fluid restrict. Check daily weights. Did discuss the case with Dr. Almaraz. He said he would be happy to follow-up with the patient as outpatient. No acute cardiac needs at this point time so wetasha hold off on cardiology consultation at present. Patient states that he is had a left heart catheterization which has been normal. States that he vomited Jardiance. Will not provide further. Explained the importance of guideline directed therapy. Tried to reassure patient that medications are meant to overall improve his cardiac function with medication. Iexplained that he is to follow up with cardiology as outpt. Explained that if does not improve, it is possible that he may require a heart transplant. Transplant has been mentioned to him before. (2) Elevated bilirubin: PLAN: Trending down. Suspect due to hepatic congestion due to his cardiomyopathy. Unclear if he has cirrhosis (despite other documentation indicating that he does). (3) CKD stage 3b, GFR 30-44 ml/min: PLAN: Stable. Monitor closely while on diuretics. (4) Hypokalemia: PLAN: Continue replacement. Check magnesium. Likely 2/2 diuresis. 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 Discussed with the patient about the need for pacemaker but also for his case to be a pacemaker/AICD. Offered him the ability to talk with cardiology or to see what their take would be. He was open to discussing with cardiology. Told that if he ultimately decides thathe wishes to proceed with having procedure, if still indicated, then he would need to be transferred to a tertiary facility. PLAN: Plan Feet edema: More notably on the left. I suspect it is related with his heart failure overall. Patient does have compressions wraps on his legs bilaterally but he stated that he was having this problem even before that was placed. I recommended keeping his legs elevated would hopefully help with that. History of PE: Continue with apixaban History of noncompliance: [facility] [place] [facility] Patient is steadfast in regards to doing only what he wants to do despite recommendations that may go against what he would want to do, such as furosemide as above. VTE prophylaxis: Not indicated as patient is already on apixaban CODE STATUS: Addressed with patient. Patient wishes to be full code. He understands that he is at higher risk for lethal cardiac arrhythmias, such as ventricular fibrillation, given his cardiomyopathy. 01/08: Discussed with the patient's in the presence of the charge nurse as well as his bedside nurse. Asked him if he had made any decisions regards to transfer, states that he is still thinking about it. Talk to him about the needs for pacemaker as he still having the heart block and that that would not be sustainable at home and that he could but also saying that he is high likelihood of ventricular arrhythmia including ventricular fibrillation that could lead to without CPR. He had reservations because a sound like they tried to do a right heart catheterization in the past but there was some sort ofcomplications with that. Patient states that the physician who performed it stated that he messed up. Try to reassure him that he would be seen by an electrophysiology specialist that I done many of these and this is actually a different approach than performing a (what may have been) a right heart catheterization. Explained in detail about how high that is performed and the importance of that. He is still continues to say that he does not want that. Itold him that is my recommendation but again expressing that we would respect his autonomy that if he did not want a pacemaker/defibrillator that he should behospice though he is currently stable he has a hospice qualifying diagnosis given his heart failure. He stated that his girlfriend would not want people being in his house. Again offered to contact his girlfriend but he declined. He said that he would be willing to speak with hospice while he is here in the hospital. I did tell him that we are going to put pacer pads on him while he ishere in the chance that we need to transcutaneous pacing. I told him that if that is the case that he will have some discomfort with that and we will give him medications to try to diminish his discomfort is much as possible, safely. I also asked him if he had reservations about going to [facility], or much of his care had been or [facility] where he had been recently. I told him that we could gethim into another hospital to be seen by other specialists. He continued to decline any transfer at this time. 01/09: Discussed with the patient with the charge nurse, Debbie, at bedside. Again explained that our recommendation is transfer for pacemaker and defibrillator to be seen by the specialist to perform the procedure. He had asked how long the procedure would take. I told him I did not know but may be about an hour or so. He stated that would be too long. Still stating that he needed to think about it despite having 2 days already think about it and that he would need to discuss with his girlfriend and siblings. Asked him what his girlfriend want and he said that she would want him to have the pacemaker and defibrillator. And asked what his brother sister would want for him even thoughhe had not spoken to them yet, he said that they would want him to have the procedures. Again, emphasized that if he does not want any procedures then we need to again change his CODE STATUS from full code and that he should proceed with hospice care services. He continues to support being full code and is apparently okay with either dying or winding up on a ventilator if he survive CPR. I told him we are trying to avoid that is much as we are able to get him apacemaker and defibrillator. I told him quite frankly I am concerned about his long-term prognosis given that he appears to be overall getting worse though he is currently stable. Again, expressed the concern that he wants to be full codefor us to do everything but he does not want us to do certain things such as pacemakers and defibrillators and even talking to his family. I expressed that I would be very willing to discuss with his girlfriend and his siblings if he would permit. He continues to decline us contacting any family member or friends of his. I did asked the patient directly if he wanted to kill himself, he said he does not he is not suicidal. Greater than 50 minutes of which majority the time was discussing with the patient, again addressing the recommendations for pacemaker defibrillator and transfer. But also expressing that we want to respect his autonomy but but his decisions are running counter to what we need to do such as him wanting us to doeverything but not really everything in regards to procedures and labs and medications. Patient has been declining medications since he has been here. Charges/Coding Visit Charges Inpatient E&M: 80615 Subs Hosp L3 01/09/25 1228 <Electronically signed by Anshul Lemus DO> Cosigner Signature (if applicable): CC: ~ Signed [facility] Work Phone: [phone] Progress note [facility] Medical Records Department [address] [place] [address] Progress Note - Hospitalist 01/09/2548 MR#: [id number] Acct: [id number] Name: CARLO MEDINA Rep #:[id number] : 1980 44 From: Anshul Lemus DO PCP: Care Physician,No Primary Status :ADM IN Location: [place] [address] Reason for Visit Reason for Visit: Diagnoses Hypokalemia (01/04/25) Conduction disorder, unspecified (01/04/25) Unspecified systolic (congestive) heart failure (01/04/25) Chronic kidney disease, stage 3b (01/04/25) Unspecified jaundice (01/04/25) Subjective Subjective Still wanting to think about pacemaker/defibrillator. Wants to talk to his girlfriend and brother or sister. Was unhappy that his girlfriend was contactedby hospice yesterday. Objective Data Objective Data Vital Signs: Vital Signs Temp Pulse Resp BP Pulse Ox O2 Del Method O2 Flow Rate 37.2 C 94 16 105/80 98 Room Air 2 01/09/25 03:00 01/09/25 03:00 01/09/25 03:00 01/09/25 05:10 01/09/25 03:00 01/09/25 03:00 01/04/25 22:00 Oxygen Flow Rate (L/min) 2 Oxygen Delivery Method Room Air Weight: 77.1 kg Body Mass Index (BMI) 22.4 Intake & Output: Intake and Output for Last 24 Hours 01/07/25 01/08/25 01/09/25 23:59 23:59 23:59 Intake Total 2074 / 2536 1402 / 1642 500 / 500 Output Total 3602 / 4352 1475 / 3275 1800 / 1800 Balance -1528 / -1816 -73 / -1633 -1300 / -1300 Lab / Micro Data 01/06/25 05:10 01/09/25 06:35 Labs: Laboratory Results - last 24 hr 01/08/25 08:50: Sodium 141, Potassium 3.8, Chloride 101, Carbon Dioxide 28.2, Anion Gap 12, BUN 23 H, Creatinine 1.83 H, Estim Creat Clear Calc 54.58, Est GFR(MDRD) Non-Af 46 L, BUN/Creatinine Ratio 12.6, Glucose 100 H, Calcium 8.3 01/09/25 06:35: Sodium 140, Potassium 3.8, Chloride 102, Carbon Dioxide 27.2, Anion Gap 11, BUN 25 H, Creatinine 1.70 H, Estim Creat Clear Calc 59.21, Est GFR(MDRD) Non-Af 50 L, BUN/Creatinine Ratio 14.5, Glucose 106 H, Calcium 7.9 Rhythm Strip Rhythm Strip: Sinus bradycardia Rate: 55 Ectopy: None Physical Exam Const Constitutional Narrative: Flat affect. Lying in bed. Nontoxic. On room air. HEENT head/scalp atraumatic and moist oral mucous membranes Resp normal respiratory effort and no retractions Psych Psych Narrative: Flat affect Assessment & Plan Assessment/Plan (1) HFrEF (heart failure with reduced ejection fraction): PLAN: Patient takes Bumex as outpatient. Did recommend initiating furosemide infusion. Patient Ressreservations about that because he did not want to be limited in regards to his mobility about being tied down to IV pump. He requested the boluses instead. I did explain to him that it would likely e xpedite more rapid removal but also being safer on the kidneys. Expressed understanding but prefersboluses instead. So we will utilize furosemide 40 mg IV every 8 hours for the time being. Holding off on LUCRECIA inhibitors and angiotensin receptor blockers given CKD. As well as Entresto. Will start empagliflozin however. Repeat echocardiogram as previous ejection fraction has been documented as 20%. Had very lengthy conversation with he and his girlfriend at bedside about the indication for defibrillator to help defibrillate in the event of cardiac arrestsuch as ventricular fibrillation which she is at high risk for. Continues to decline that though he wishes to be full code. Will fluid restrict. Check daily weights. Did discuss the case with Dr. Almaraz. He said he would be happy to follow-up with the patient as outpatient. No acute cardiac needs at this point time so wewill hold off on cardiology consultation at present. Patient states that he is had a left heart catheterization which has been normal. States that he vomited Jardiance. Will not provide further. Explained the importance of guideline directed therapy. Tried to reassure patient that medications are meant to overall improve his cardiacfunction with medication. Iexplained that he is to follow up with cardiology as outpt. Explained that if does not improve, it is possible that he may require a heart transplant. Transplant has been mentioned to him before. (2) Elevated bilirubin: PLAN: Trending down. Suspect due to hepatic congestion due to his cardiomyopathy. Unclear if he has cirrhosis (despite other documentation indicating that he does). (3) CKD stage 3b, GFR 30-44 ml/min: PLAN: Stable. Monitor closely while on diuretics. (4) Hypokalemia: PLAN: Continue replacement. Check magnesium. Likely 2/2 diuresis. 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 Discussed with the patient about the need for pacemaker but also for his case to be a pacemaker/AICD. Offered him the ability to talk with cardiology or to see what their take would be. He was open to discussing with cardiology. Told that if he ultimately decides thathe wishes to proceed with having procedure, if still indicated, then he would need to be transferred to a tertiary facility. PLAN: Plan Feet edema: More notably on the left. I suspect it is related with his heart failure overall. Patient does have compressions wraps on his legs bilaterally but he stated that he was having this problem even before that was placed. I recommended keeping his legs elevated would hopefully help with that. History of PE: Continue with apixaban History of noncompliance: Per previous documentation [facility] [place] [facility] Patient is steadfast in regards to doing only what he wants to do despite recommendations that may go against what he would want to do, such as furosemide as above. VTE prophylaxis: Not indicated as patient is already on apixaban CODE STATUS: Addressed with patient. Patient wishes to be full code. He understands that he is at higher risk for lethal cardiac arrhythmias, such as ventricular fibrillation, given his cardiomyopathy. 01/08: Discussed with the patient's in the presence of the charge nurse as well as his bedside nurse. Asked him if he had made any decisions regards to transfer, states that he is still thinking aboutit. Talk to him about the needs for pacemaker as he still having the heart block and that that would not be sustainable at home and that he could but also saying that he is high likelihood of ventricular arrhythmia including ventricular fibrillation that could lead to without CPR. He had reservations because a sound like they tried to do a right heart catheterization in the past but there was some sort ofcomplications with that. Patient states that the physician who performed it stated that he messed up. Try to reassure him that he would be seen by an electrophysiology specialist that I done many of these and this is actually a different approach than performing a (what may havebeen) a right heart catheterization. Explained in detail about how high that is performed and the im portance of that. He is still continues to say that he does not want that. Itold him that is my recommendation but again expressing that we would respect his autonomy that if he did not want a pacemaker/defibrillator that he should behospice though he is currently stable he has a hospice qualifyingdiagnosis given his heart failure. He stated that his girlfriend would not want people being in hishouse. Again offered to contact his girlfriend but he declined. He said that he would be willing tospeak with hospice while he is here in the hospital. I did tell him that we are going to put pacer pads on him while he ishere in the chance that we need to transcutaneous pacing. I told him that if t hat is the case that he will have some discomfort with that and we will give him medications to tryto diminish his discomfort is much as possible, safely. I also asked him if he had reservations about going to [facility], or much of his care had been or [facility] where he had been recently. I told him thatwe could gethim into another hospital to be seen by other specialists. He continued to decline any t ransfer at this time. 01/09: Discussed with the patient with the charge nurse, Debbie, at bedside. Again explained that ourrecommendation is transfer for pacemaker and defibrillator to be seen by the specialist to perform the procedure. He had asked how long the procedure would take. I told him I did not know but may be about an hour or so. He stated that would be too long. Still stating that he needed to think about it despite having 2 days already think about it and that he would need to discuss with his girlfriendand siblings. Asked him what his girlfriend want and he said that she would want him to have the pacemaker and defibrillator. And asked what his brother sister would want for him even thoughhe had not spoken to them yet, he said that they would want him to have the procedures. Again, emphasized that if he does not want any procedures then we need to again change his CODE STATUS from full code andthat he should proceed with hospice care services. He continues to support being full code and is apparently okay with either dying or winding up on a ventilator if he survive CPR. I told him we are trying to avoid that is much as we are able to get him apacemaker and defibrillator. I told him quite frankly I am concerned about his long-term prognosis given that he appears to be overall getting worse though he is currently stable. Again, expressed the concern that he wants to be full codefor usto do everything but he does not want us to do certain things such as pacemakers and defibrillatorsand even talking to his family. I expressed that I would be very willing to discuss with his girlfri allison and his siblings if he would permit. He continues to decline us contacting any family member orfriends of his. I did asked the patient directly if he wanted to kill himself, he said he does not he is not suicidal. Greater than 50 minutes of which majority the time was discussing with the patient, again addressing the recommendations for pacemaker defibrillator and transfer. But also expressing that we want to respect his autonomy but but his decisions are running counter to what we need to do such as him wanting us to doeverything but not really everything in regards to procedures and labs and medications.Patient has been declining medications since he has been here. Charges/Coding Visit Charges Inpatient E&M: 21530 Subs Hosp L3 01/09/25 1228 Cosigner Signature (if applicable): CC: ~ Signed [facility]07-12-2025 Progress note Author Anshul Lemus [facility] Note Date/Time January 08, 2025 8:[address] [facility] Medical Records Department [address] [place] [address] Progress Note - Hospitalist 01/08/25 2937 MR#: [id number] Acct: [id number] Name: CARLO MEDINA Rep #:[id number] : 1980 44 From: Anshul Lemus DO PCP: Care Physician,No Primary Status :ADM IN Location: [place] [address]- 1 Reason for Visit Reason for Visit: Diagnoses Hypokalemia (01/04/25) Conduction disorder, unspecified (01/04/25) Unspecified systolic (congestive) heart failure (01/04/25) Chronic kidney disease, stage 3b (01/04/25) Unspecified jaundice (01/04/25) Subjective Subjective Still with pain in his feet but overall better. Objective Data Objective Data Vital Signs: Vital Signs Temp Pulse Resp BP Pulse Ox O2 Del Method O2 Flow Rate 36.6 C 81 16 108/85 H 94 Room Air 2 01/08/25 03:45 01/08/25 05:55 01/08/25 03:45 01/08/25 05:55 01/08/25 03:45 01/08/25 03:45 01/04/25 22:00 Oxygen Flow Rate (L/min) 2 Oxygen Delivery Method Room Air Weight: 76.5 kg Body Mass Index (BMI) 22.2 Intake & Output: Intake and Output for Last 24 Hours 01/06/25 01/07/25 01/08/25 23:59 23:59 23:59 Intake Total 170 / 754 2074 / 2536 702 / 702 Output Total 3602 / 4352 1475 / 1475 Balance 170 / -696 -1528 / -1816 -773 / -773 Lab / Micro Data 01/06/25 05:10 01/07/25 05:25 Labs: Laboratory Results - last 24 hr 01/07/25 05:25: Sodium 141, Potassium 3.1 L, Chloride 102, Carbon Dioxide 28.4, Anion Gap 10, BUN 23 H, Creatinine 1.75 H, Estim Creat Clear Calc 56.03, Est GFR(MDRD) Non-Af 48 L, BUN/Creatinine Ratio 13.1, Glucose 94, Calcium 8.0, Total Bilirubin 2.65 H, AST 29, ALT 20, Alkaline Phosphatase 585 H, Total Protein 6.0,Albumin 3.2 L, Globulin 2.8, Albumin/Globulin Ratio 1.1 Rhythm Strip Rhythm Strip: Sinus bradycardia Rate: 55 Ectopy: None Physical Exam Const alert and no apparent distress Constitutional Narrative: Lying in bed. On room air. No respiratory distress. No conversational dyspnea. HEENT head/scalp atraumatic Resp normal respiratory effort and no retractions Neuro Sensorium / Orientation: awake and alert Psych Psych Narrative: Flat affect Assessment & Plan Assessment/Plan (1) HFrEF (heart failure with reduced ejection fraction): PLAN: Patient takes Bumex as outpatient. Did recommend initiating furosemide infusion. Patient Ress reservations about that because he did not want to be limited in regards to his mobility about being tied down to IV pump. He requested the boluses instead. I did explain to him that it would likely expedite more rapid removal but also being safer on the kidneys. Expressed understanding but prefers boluses instead. So we will utilize furosemide 40 mg IV every 8 hours for the time being. Holding off on LUCRECIA inhibitors and angiotensin receptor blockers given CKD. As well as Entresto. Will start empagliflozin however. Repeat echocardiogram as previous ejection fraction has been documented as 20%. Had very lengthy conversation with he and his girlfriend at bedside about the indication for defibrillator to help defibrillate in the event of cardiac arrestsuch as ventricular fibrillation which she is at high risk for. Continues to decline that though he wishes to be full code. Will fluid restrict. Check daily weights. Did discuss the case with Dr. Almaraz. He said he would be happy to follow-up with the patient as outpatient. No acute cardiac needs at this point time so wewill hold off on cardiology consultation at present. Patient states that he is had a left heart catheterization which has been normal. States that he vomited Jardiance. Will not provide further. Explained the importance of guideline directed therapy. Tried to reassure patient that medications are meant to overall improve his cardiac function with medication. Iexplained that he is to follow up with cardiology as outpt. Explained that if does not improve, it is possible that he may require a heart transplant. Transplant has been mentioned to him before. (2) Elevated bilirubin: PLAN: Trending down. Suspect due to hepatic congestion due to his cardiomyopathy. Unclear if he has cirrhosis (despite other documentation indicating that he does). (3) CKD stage 3b, GFR 30-44 ml/min: PLAN: Stable. Monitor closely while on diuretics. (4) Hypokalemia: PLAN: Continue replacement. Check magnesium. Likely 2/2 diuresis. 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 Discussed with the patient about the need for pacemaker but also for his case to be a pacemaker/AICD. Offered him the ability to talk with cardiology or to see what their take would be. He was open to discussing with cardiology. Told that if he ultimately decides thathe wishes to proceed with having procedure, if still indicated, then he would need to be transferred to a tertiary facility. PLAN: Plan Feet edema: More notably on the left. I suspect it is related with his heart failure overall. Patient does have compressions wraps on his legs bilaterally but he stated that he was having this problem even before that was placed. I recommended keeping his legs elevated would hopefully help with that. History of PE: Continue with apixaban History of noncompliance: [facility] Patient is steadfast in regards to doing only what he wants to do despite recommendations that may go against what he would want to do, such as furosemide as above. Expressed that he and his fianc?e that we will respect hisautonomy in regards to his decisions but did express to him over that it is important that he have education in regards to the risks of his decisions so that he has thorough understanding of potential outcomes. VTE prophylaxis: Not indicated as patient is already on apixaban CODE STATUS: Addressed with patient. Patient wishes to be full code. He understands that he is at higher risk for lethal cardiac arrhythmias, such as ventricular fibrillation, given his cardiomyopathy. 01/08: Discussed with the patient's in the presence of the charge nurse as well as his bedside nurse. Asked him if he had made any decisions regards to transfer, states that he is still thinking about it. Talk to him about the needs for pacemaker as he still having the heart block and that that would not be sustainable at home and that he could but also saying that he is high likelihood of ventricular arrhythmia including ventricular fibrillation that could lead to without CPR. He had reservations because a sound like they tried to do a right heart catheterization in the past but there was some sort ofcomplications with that. Patient states that the physician who performed it stated that he messed up. Try to reassure him that he would be seen by an electrophysiology specialist that I done many of these and this is actually a different approach than performing a (what may have been) a right heart catheterization. Explained in detail about how high that is performed and the importance of that. He is still continues to say that he does not want that. Itold him that is my recommendation but again expressing that we would respect his autonomy that if he did not want a pacemaker/defibrillator that he should behospice though he is currently stable he has a hospice qualifying diagnosis given his heart failure. He stated that his girlfriend would not want people being in his house. Again offered to contact his girlfriend but he declined. He said that he would be willing to speak with hospice while he is here in the hospital. I did tell him that we are going to put pacer pads on him while he ishere in the chance that we need to transcutaneous pacing. I told him that if that is the case that he will have some discomfort with that and we will give him medications to try to diminish his discomfort is much as possible, safely. I also asked him if he had reservations about going to [facility], or much of his care had been or [facility] where he had been recently. I told him that we could gethim into another hospital to be seen by other specialists. He continued to decline any transfer at this time. Greater than 50 minutes spent discussing with the patient, nursing as above. Charges/Coding Visit Charges Inpatient E&M: 52103 Subs Hosp L3 01/08/25 0844 <Electronically signed by Anshul Lemus DO> Cosigner Signature (if applicable): CC: ~ Signed [facility] Work Phone: 1(114) 380-587807-12-2025 Progress note [facility] Medical Records Department [address] [place] [address] Progress Note - Hospitalist 01/08/25 0070 MR#: [id number] Acct: [id number] Name: CARLO MEDINA Rep #:[id number] : 1980 44 From: Anshul Lemus DO PCP: Care Physician,No Primary Status :ADM IN Location: [place] [id number]- 1 Reason for Visit Reason for Visit: Diagnoses Hypokalemia (01/04/25) Conduction disorder, unspecified (01/04/25) Unspecified systolic (congestive) heart failure (01/04/25) Chronic kidney disease, stage 3b (01/04/25) Unspecified jaundice (01/04/25) Subjective Subjective Still with pain in his feet but overall better. Objective Data Objective Data Vital Signs: Vital Signs Temp Pulse Resp BP Pulse Ox O2 Del Method O2 Flow Rate 36.6 C 81 16 108/85 H 94 Room Air 2 01/08/25 03:45 01/08/25 05:55 01/08/25 03:45 01/08/25 05:55 01/08/25 03:45 01/08/25 03:45 01/04/25 22:00 Oxygen Flow Rate (L/min) 2 Oxygen Delivery Method Room Air Weight: 76.5 kg Body Mass Index (BMI) 22.2 Intake & Output: Intake and Output for Last 24 Hours 01/06/25 01/07/25 01/08/25 23:59 23:59 23:59 Intake Total 170 / 754 2074 / 2536 702 / 702 Output Total 3602 / 4352 1475 / 1475 Balance 170 / -696 -1528 / -1816 -773 / -773 Lab / Micro Data 01/06/25 05:10 01/07/25 05:25 Labs: Laboratory Results - last 24 hr 01/07/25 05:25: Sodium 141, Potassium 3.1 L, Chloride 102, Carbon Dioxide 28.4, Anion Gap 10, BUN 23 H, Creatinine 1.75 H, Estim Creat Clear Calc 56.03, Est GFR(MDRD) Non-Af 48 L, BUN/Creatinine Ratio 13.1, Glucose 94, Calcium 8.0, Total Bilirubin 2.65 H, AST 29, ALT 20, Alkaline Phosphatase 585 H,Total Protein 6.0,Albumin 3.2 L, Globulin 2.8, Albumin/Globulin Ratio 1.1 Rhythm Strip Rhythm Strip: Sinus bradycardia Rate: 55 Ectopy: None Physical Exam Const alert and no apparent distress Constitutional Narrative: Lying in bed. On room air. No respiratory distress. No conversational dyspnea. HEENT head/scalp atraumatic Resp normal respiratory effort and no retractions Neuro Sensorium / Orientation: awake and alert Psych Psych Narrative: Flat affect Assessment & Plan Assessment/Plan (1) HFrEF (heart failure with reduced ejection fraction): PLAN: Patient takes Bumex as outpatient. Did recommend initiating furosemide infusion. Patient Ressreservations about that because he did not want to be limited in regards to his mobility about being tied down to IV pump. He requested the boluses instead. I did explain to him that it would likely e xpedite more rapid removal but also being safer on the kidneys. Expressed understanding but prefersboluses instead. So we will utilize furosemide 40 mg IV every 8 hours for the time being. Holding off on LUCRECIA inhibitors and angiotensin receptor blockers given CKD. As well as Entresto. Will start empagliflozin however. Repeat echocardiogram as previous ejection fraction has been documented as 20%. Had very lengthy conversation with he and his girlfriend at bedside about the indication for defibrillator to help defibrillate in the event of cardiac arrestsuch as ventricular fibrillation which she is at high risk for. Continues to decline that though he wishes to be full code. Will fluid restrict. Check daily weights. Did discuss the case with Dr. Almaraz. He said he would be happy to follow-up with the patient as outpatient. No acute cardiac needs at this point time so wewill hold off on cardiology consultation at present. Patient states that he is had a left heart catheterization which has been normal. States that he vomited Jardiance. Will not provide further. Explained the importance of guideline directed therapy. Tried to reassure patient that medications are meant to overall improve his cardiacfunction with medication. Iexplained that he is to follow up with cardiology as outpt. Explained that if does not improve, it is possible that he may require a heart transplant. Transplant has been mentioned to him before. (2) Elevated bilirubin: PLAN: Trending down. Suspect due to hepatic congestion due to his cardiomyopathy. Unclear if he has cirrhosis (despite other documentation indicating that he does). (3) CKD stage 3b, GFR 30-44 ml/min: PLAN: Stable. Monitor closely while on diuretics. (4) Hypokalemia: PLAN: Continue replacement. Check magnesium. Likely 2/2 diuresis. 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 Discussed with the patient about the need for pacemaker but also for his case to be a pacemaker/AICD. Offered him the ability to talk with cardiology or to see what their take would be. He was open to discussing with cardiology. Told that if he ultimately decides thathe wishes to proceed with having procedure, if still indicated, then he would need to be transferred to a tertiary facility. PLAN: Plan Feet edema: More notably on the left. I suspect it is related with his heart failure overall. Patient does have compressions wraps on his legs bilaterally but he stated that he was having this problem even before that was placed. I recommended keeping his legs elevated would hopefully help with that. History of PE: Continue with apixaban History of noncompliance: Per [facility] Patient is steadfast in regards to doing only what he wants to do despite recommendations that may go against what he would want to do, such as furosemide as above. Expressed that he and his fianc?e that we will respect hisautonomy in regards to his decisions but did express to him over that it is important that he have education in regards to the risks of his decisions so that he has thorough understanding of potential outcomes. VTE prophylaxis: Not indicated as patient is already on apixaban CODE STATUS: Addressed with patient. Patient wishes to be full code. He understands that he is at higher risk for lethal cardiac arrhythmias, such as ventricular fibrillation, given his cardiomyopathy. 01/08: Discussed with the patient's in the presence of the charge nurse as well as his bedside nurse. Asked him if he had made any decisions regards to transfer, states that he is still thinking aboutit. Talk to him about the needs for pacemaker as he still having the heart block and that that would not be sustainable at home and that he could but also saying that he is high likelihood of ventricular arrhythmia including ventricular fibrillation that could lead to without CPR. He had reservations because a sound like they tried to do a right heart catheterization in the past but there was some sort ofcomplications with that. Patient states that the physician who performed it stated that he messed up. Try to reassure him that he would be seen by an electrophysiology specialist that I done many of these and this is actually a different approach than performing a (what may havebeen) a right heart catheterization. Explained in detail about how high that is performed and the im portance of that. He is still continues to say that he does not want that. Itold him that is my recommendation but again expressing that we would respect his autonomy that if he did not want a pacemaker/defibrillator that he should behospice though he is currently stable he has a hospice qualifyingdiagnosis given his heart failure. He stated that his girlfriend would not want people being in hishouse. Again offered to contact his girlfriend but he declined. He said that he would be willing tospeak with hospice while he is here in the hospital. I did tell him that we are going to put pacer pads on him while he ishere in the chance that we need to transcutaneous pacing. I told him that if t hat is the case that he will have some discomfort with that and we will give him medications to tryto diminish his discomfort is much as possible, safely. I also asked him if he had reservations about going to [facility], or much of his care had been or [facility] where he had been recently. I told him thatwe could gethim into another hospital to be seen by other specialists. He continued to decline any t ransfer at this time. Greater than 50 minutes spent discussing with the patient, nursing as above. Charges/Coding Visit Charges Inpatient E&M: 59206 Subs Hosp L3 01/08/25 0844 Cosigner Signature (if applicable): CC: ~ Signed [facility]07-11-2025 Progress note Author Anshul Lemus [facility] Note Date/Time January 07, 2025 4:40 pm [facility] Medical Records Department [address] [place] [address] Progress Note - Hospitalist 01/07/25 0803 MR#: [id number] Acct: [id number] Name: CARLO MEDINA Rep #:[id number] : 1980 44 From: Anshul Lemus DO PCP: Care Physician,No Primary Status :ADM IN Location: [place] [address] Reason for Visit Reason for Visit: Diagnoses Hypokalemia (01/04/25) Unspecified systolic (congestive) heart failure (01/04/25) Chronic kidney disease, stage 3b (01/04/25) Unspecified jaundice (01/04/25) Subjective Subjective Complaining of pain and swelling on the plantar aspects of his feet bilaterally with left being worse than the right. Noted that his heart rhythm is also developing secondary heart block Mobitz type II. Objective Data Objective Data Vital Signs: Vital Signs Temp Pulse Resp BP Pulse Ox O2 Del Method O2 Flow Rate 36.6 C 85 18 115/86 H 99 Room Air 2 01/07/25 03:50 01/07/25 05:33 01/07/25 03:50 01/07/25 05:33 01/07/25 03:50 01/07/25 03:50 01/04/25 22:00 Oxygen Flow Rate (L/min) 2 Oxygen Delivery Method Room Air Weight: 75.1 kg Body Mass Index (BMI) 21.8 Intake & Output: Intake and Output for Last 24 Hours 01/05/25 01/06/25 01/07/25 23:59 23:59 23:59 Intake Total 1945 / 1945 170 / 754 724 / 724 Output Total 1350 / 1350 2550 / 2550 Balance 595 / 595 170 / -696 -1826 / -1826 Lab / Micro Data 01/06/25 05:10 01/07/25 05:25 Labs: Laboratory Results - last 24 hr 01/06/25 05:10: Magnesium 1.8 Rhythm Strip Rhythm Strip: Sinus bradycardia Rate: 55 Ectopy: None Physical Exam Const alert and no apparent distress HEENT head/scalp atraumatic and moist oral mucous membranes Resp normal respiratory effort and no retractions Extremity Extremity Narrative: Swelling on the plantar aspect of his left foot. No surrounding erythema bilaterally. Psych affect normal Assessment & Plan Assessment/Plan (1) HFrEF (heart failure with reduced ejection fraction): PLAN: Patient takes Bumex as outpatient. Did recommend initiating furosemide infusion. Patient Ress reservations about that because he did not want to be limited in regards to his mobility about being tied down to IV pump. He requested the boluses instead. I did explain to him that it would likely expedite more rapid removal but also being safer on the kidneys. Expressed understanding but prefers boluses instead. So we will utilize furosemide 40 mg IV every 8 hours for the time being. Holding off on LUCRECIA inhibitors and angiotensin receptor blockers given CKD. As well as Entresto. Will start empagliflozin however. Repeat echocardiogram as previous ejection fraction has been documented as 20%. Had very lengthy conversation with he and his girlfriend at bedside about the indication for defibrillator to help defibrillate in the event of cardiac arrestsuch as ventricular fibrillation which she is at high risk for. Continues to decline that though he wishes to be full code. Will fluid restrict. Check daily weights. Did discuss the case with Dr. Almaraz. He said he would be happy to follow-up with the patient as outpatient. No acute cardiac needs at this point time so piyush hold off on cardiology consultation at present. Patient states that he is had a left heart catheterization which has been normal. States that he vomited Jardiance. Will not provide further. Explained the importance of guideline directed therapy. Tried to reassure patient that medications are meant to overall improve his cardiac function with medication. Iexplained that he is to follow up with cardiology as outpt. Explained that if does not improve, it is possible that he may require a heart transplant. Transplant has been mentioned to him before. (2) Elevated bilirubin: PLAN: Trending down. Suspect due to hepatic congestion due to his cardiomyopathy. Unclear if he has cirrhosis (despite other documentation indicating that he does). (3) CKD stage 3b, GFR 30-44 ml/min: PLAN: Stable. Monitor closely while on diuretics. (4) Hypokalemia: PLAN: Continue replacement. Check magnesium. Likely 2/2 diuresis. 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 Discussed with the patient about the need for pacemaker but also for his case to be a pacemaker/AICD. Offered him the ability to talk with cardiology or to see what their take would be. He was open to discussing with cardiology. Told that if he ultimately decides thathe wishes to proceed with having procedure, if still indicated, then he would need to be transferred to a tertiary facility. PLAN: Plan Feet edema: More notably on the left. I suspect it is related with his heart failure overall. Patient does have compressions wraps on his legs bilaterally but he stated that he was having this problem even before that was placed. I recommended keeping his legs elevated would hopefully help with that. History of PE: Continue with apixaban History of noncompliance: Per previous documentation from [facility]. Patient is steadfast in regards to doing only what he wants to do despite recommendations that may go against what he would want to do, such as furosemide as above. Expressed that he and his fianc?e that we will respect hisautonomy in regards to his decisions but did express to him over that it is important that he have education in regards to the risks of his decisions so that he has thorough understanding of potential outcomes. VTE prophylaxis: Not indicated as patient is already on apixaban CODE STATUS: Addressed with patient. Patient wishes to be full code. He understands that he is at higher risk for lethal cardiac arrhythmias, such as ventricular fibrillation, given his cardiomyopathy. Patient was dressed with his bedside nurse as well as the charge nurse on the floor. Charges/Coding Visit Charges Inpatient E&M: 31585 Subs Hosp L3 01/07/25 1045 <Electronically signed by Anshul Lemus DO> Cosigner Signature (if applicable): CC: ~ Signed ADDENDUM by Dr. Anshul Lemus DO on 01/07/25 at [address] Campo given his heart block and recommends transfer as well. He discussed with the patient and the patient told him that he wanted to think about it. I went back with nursing later on with the charge nurse and the patient is at bedside nurse and we spoke with the patient. Impressed upon him the urgency for transfer given his cardiomyopathy and what appears to be new heart block requiring pacemaker and a defibrillator. He continues to insist on wanting to think about it. He declined us reaching out to his girlfriend because she had things to do. I told him we will respect his autonomy but also expressed to him that he is giving us mixed signals regards to what he wants us to do. I confirmed again that he wants to have CPR and life support inthe event of a cardiac arrest, however he is telling us he wants to be left alone and not wanting a pacemaker or defibrillator or even a transfer to even discussed with the specialist up there about their recommendations. I told him that if he does not definitively want this that he needs to be hospice though myrecommendation, given his age and the fact that he is of sound mind that he should be transferred to have pacemaker/AICD placed, Again on goal-directed therapy as he is able to tolerate and then potentially be evaluated for heart transplant if indicated. I told the patient that if an event of a cardiac arrest occurs while he is here in the hospital that we would do what is necessary to try to revive including the necessary CPR, life support. I also did explain to him that the percentage of survival from cardiac arrest are overall low but we will certainly do the best that we could in regards to reviving him. Told him that if he is wind up on a ventilator then further decisions will be falling on his next of kin and then they would determine if the patient were to continue with medical therapy including pacemaker/AICD, medications etc. He insisted still wanting to think about it. He did 1 point say that he wanted to go home. Told him given his heart block that he has rightnow that he is just and even higher likelihood of and then I could not reasonably discharge him home with that being present. 01/07/25 1429<Electronically signed by Anshul Lemus DO> Cosigner Signature (if applicable): cc: ~* Signed ADDENDUM by Dr. Anshul Lemus DO on 01/07/25 at 1640 Addendum Patient reportedly vomited up his apixaban and potassium pill though this was not seen by the nurse self-reported by the patient. Will give him 40 mill equivalents of liquid potassium. Ideally like to give him IV potassium help replenish that in addition to the oral but given his disagreeability with numerous interventions including life-saving measures such as pacemaker and defibrillator, I do not think he would tolerate and likely discontinue it. 01/07/25 1640<Electronically signed by Anshul Lemus DO> Cosigner Signature (if applicable): cc: ~* Signed [facility] Work Phone: 1(928) 514-478407-11-20[address] Progress note [facility] Medical Records Department [address] [place] [id number] Progress Note - Hospitalist 01/07/25 08 MR#: [id number] Acct: [id number] Name: CARLO MEDINA Rep #:[id number] : 1980 44 From: Anshul Lemus DO PCP: Care Physician,No Primary Status :ADM IN Location: [place] [id number]- 1 Reason for Visit Reason for Visit: Diagnoses Hypokalemia (01/04/25) Unspecified systolic (congestive) heart failure (01/04/25) Chronic kidney disease, stage 3b (01/04/25) Unspecified jaundice (01/04/25) Subjective Subjective Complaining of pain and swelling on the plantar aspects of his feet bilaterally with left being worse than the right. Noted that his heart rhythm is also developing secondary heart block Mobitz type II. Objective Data Objective Data Vital Signs: Vital Signs Temp Pulse Resp BP Pulse Ox O2 Del Method O2 Flow Rate 36.6 C 85 18 115/86 H 99 Room Air 2 01/07/25 03:50 01/07/25 05:33 01/07/25 03:50 01/07/25 05:33 01/07/25 03:50 01/07/25 03:50 01/04/25 22:00 Oxygen Flow Rate (L/min) 2 Oxygen Delivery Method Room Air Weight: 75.1 kg Body Mass Index (BMI) 21.8 Intake & Output: Intake and Output for Last 24 Hours 01/05/25 01/06/25 01/07/25 23:59 23:59 23:59 Intake Total 1945 / 1945 170 / 754 724 / 724 Output Total 1350 / 1350 2550 / 2550 Balance 595 / 595 170 / -696 -1826 / -1826 Lab / Micro Data 01/06/25 05:10 01/07/25 05:25 Labs: Laboratory Results - last 24 hr 01/06/25 05:10: Magnesium 1.8 Rhythm Strip Rhythm Strip: Sinus bradycardia Rate: 55 Ectopy: None Physical Exam Const alert and no apparent distress HEENT head/scalp atraumatic and moist oral mucous membranes Resp normal respiratory effort and no retractions Extremity Extremity Narrative: Swelling on the plantar aspect of his left foot. No surrounding erythema bilaterally. Psych affect normal Assessment & Plan Assessment/Plan (1) HFrEF (heart failure with reduced ejection fraction): PLAN: Patient takes Bumex as outpatient. Did recommend initiating furosemide infusion. Patient Ressreservations about that because he did not want to be limited in regards to his mobility about being tied down to IV pump. He requested the boluses instead. I did explain to him that it would likely e xpedite more rapid removal but also being safer on the kidneys. Expressed understanding but prefersboluses instead. So we will utilize furosemide 40 mg IV every 8 hours for the time being. Holding off on LUCRECIA inhibitors and angiotensin receptor blockers given CKD. As well as Entresto. Will start empagliflozin however. Repeat echocardiogram as previous ejection fraction has been documented as 20%. Had very lengthy conversation with he and his girlfriend at bedside about the indication for defibrillator to help defibrillate in the event of cardiac arrestsuch as ventricular fibrillation which she is at high risk for. Continues to decline that though he wishes to be full code. Will fluid restrict. Check daily weights. Did discuss the case with Dr. Almaraz. He said he would be happy to follow-up with the patient as outpatient. No acute cardiac needs at this point time so wewill hold off on cardiology consultation at present. Patient states that he is had a left heart catheterization which has been normal. States that he vomited Jardiance. Will not provide further. Explained the importance of guideline directed therapy. Tried to reassure patient that medications are meant to overall improve his cardiacfunction with medication. Iexplained that he is to follow up with cardiology as outpt. Explained that if does not improve, it is possible that he may require a heart transplant. Transplant has been mentioned to him before. (2) Elevated bilirubin: PLAN: Trending down. Suspect due to hepatic congestion due to his cardiomyopathy. Unclear if he has cirrhosis (despite other documentation indicating that he does). (3) CKD stage 3b, GFR 30-44 ml/min: PLAN: Stable. Monitor closely while on diuretics. (4) Hypokalemia: PLAN: Continue replacement. Check magnesium. Likely 2/2 diuresis. 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 Discussed with the patient about the need for pacemaker but also for his case to be a pacemaker/AICD. Offered him the ability to talk with cardiology or to see what their take would be. He was open to discussing with cardiology. Told that if he ultimately decides thathe wishes to proceed with having procedure, if still indicated, then he would need to be transferred to a tertiary facility. PLAN: Plan Feet edema: More notably on the left. I suspect it is related with his heart failure overall. Patient does have compressions wraps on his legs bilaterally but he stated that he was having this problem even before that was placed. I recommended keeping his legs elevated would hopefully help with that. History of PE: Continue with apixaban History of noncompliance: Per [facility] [place] well [facility]. Patient is steadfast in regards to doing only what he wants to do despite recommendations that may go against what he would want to do, such as furosemide as above. Expressed that he and his fianc?e that we will respect hisautonomy in regards to his decisions but did express to him over that it is important that he have education in regards to the risks of his decisions so that he has thorough understanding of potential outcomes. VTE prophylaxis: Not indicated as patient is already on apixaban CODE STATUS: Addressed with patient. Patient wishes to be full code. He understands that he is at higher risk for lethal cardiac arrhythmias, such as ventricular fibrillation, given his cardiomyopathy. Patient was dressed with his bedside nurse as well as the charge nurse on the floor. Charges/Coding Visit Charges Inpatient E&M: 98999 Subs Hosp L3 01/07/25 1045 Cosigner Signature (if applicable): CC: ~ Signed ADDENDUM by Dr. Anshul Lemus, DO on 01/07/25 at [address] Campo given his heart block and recommends transfer as well. He discussed with the patient and the patient told him that he wanted to think about it. I went back with nursing later on with the charge nurse and the patient is at bedside nurse and we spoke with the patient. Impressed upon him the urgency for transfer given his cardiomyopathy and what appears to be new heart block requiring pacemaker and a defibrillator. He continues to insist on wanting to think about it. He declined us reaching out to his girlfriend because she had things to do. I told him we will respect his autonomy but also expressed to him that he is giving us mixed signals regards to what he wants us to do. I confirmed again that he wants to have CPR and life support inthe event of a cardiac arrest, however he is telling us he wants to be left alone and not wanting a pacemaker or defibrillator or even a transfer to even discussed with the specialist up there about their recommendations. I told him that if he does not definitively want this that he needs to be hospice though myrecommendation, given his age and the fact that he is of sound mind that he should be transferred to have pacemaker/AICD placed, Again on goal-directed therapy as he is able to tolerate and then potentially be evaluated for heart transplant if indicated. I told the patient that if an event of a cardiac arrest occurs while he is here in the hospital that we would do what is necessary to try to revive including the necessary CPR, life support. I also did explain to him that the percentage of survival from cardiac arrest are overall low but we will certainly do the best that we could in regards to reviving him. Told him that if he is wind up on a ventilator then further decisions will be falling on his next of kin and then they would determine if the patient were to continue with medical therapy including pacemaker/AICD, medications etc. He insisted still wanting to think about it. He did 1 point say that he wanted to go home. Told him given his heart block that he has rightnow that he is just and even higher likelihood of and then I could not reasonably discharge him home with that being present. 01/07/25 1429 Cosigner Signature (if applicable): cc: ~* Signed ADDENDUM by Dr. Anshul Lemus DO on 01/07/25 at 1640 Addendum Patient reportedly vomited up his apixaban and potassium pill though this was not seen by the nurseself-reported by the patient. Will give him 40 mill equivalents of liquid potassium. Ideally like to give him IV potassium help replenish that in addition to the oral but given his disagreeability with numerous interventions including life-saving measures such as pacemaker and defibrillator, I do not think he would tolerate and likely discontinue it. 01/07/25 1640 Cosigner Signature (if applicable): cc: ~* Signed [facility]07-11-2025 Consult note Author Lavon Campo [facility] Note Date/Time January 07, 2025 2:[address] [facility] Medical Records Department [address] [place] [address] Consultation - Cardiology 01/07/25 1336 MR#: [id number] Acct: [id number] Name: CARLO MEDINA Rep #:[id number] : 1980 44 From: Lavon Campo MD PCP: Care Physician,No Primary Status :ADM IN Location: [place] [address] Assessment & Plan Assessment/Plan (1) HFrEF (heart failure with reduced ejection fraction): PLAN: Continue with with isosorbide dinitrate Start hydralazine 25 mg daily Hold off on starting beta-jerome given complete heart block Continue with furosemide 40 mg IV every 8 Once creatinine is back to baseline start losartan 25 mg daily He will need to be on spironolactone and SGLT2 Recommend transferring the patient to [facility] for BiV evaluation. Noncompliance is a major issue. 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 Patient will be need to be transferred for BiV evaluation in the setting of complete heart block and reduced EF. The only caveat he is not optimized from GDMT standpoint. HPI Consult Data Date of Consult: 01/07/25 HPI Narrative HPI Narrative: CARLO MEDINA, is a 44 male with a history of nonischemic cardiomyopathy with an ejection fraction of 20% ,CKD stage 3 presents with progressive shortness of breath and edema. he has increased weight gain of about 10 pounds with period time. Has had numerous hospitalizations over at [facility] [place] and recently was over at [facility] [place] in September. It is documented throughout his charts at [facility], [place] as well as [facility] that he has a history of noncompliance. Patient at home has been taking apixaban and isosorbide. Patient has not been put on LUCRECIA inhibitors no angiotensin receptor blockers given chronic kidney disease. Because of his weight gain, shortness of breath, he presented to the ED. His BNP was 25,000, total bilirubin 4.32, direct bilirubin 2.68, creatinine 2.03. Chest x-ray showssome mild pulmonary vascular congestion but also cardiomegaly. he was found to have second degree av block with intermittent CHB. [facility] Medical History Kidney disease Non-smoker Irregular heart beat DVT (deep venous thrombosis) CKD (chronic kidney disease) Cardiomyopathy Left bundle branch block Noncompliance Pulmonary embolism CHF (congestive heart failure) Home Medications ?Medication ?Instructions ?Recorded ?Last Taken ?Type apixaban 5 mg tablet (Eliquis) 5 mg PO BID 01/04/25 Un known History bumetanide 1 mg tablet 1 mg PO BID 01/04/25 Unknown History isosorbide dinitrate 20 mg tablet 20 mg PO Q8H 5 Unknown History Allergy/AdvReac Type Severity Reaction Status Date / Time No Known Allergies Allergy Verified 01/04/25 07:32 Family History Father Heart disease Brother Heart disease Social History Smoking Status: Never smoker alcohol intake: never substance use type: does not use Physical Exam Const alert Resp normal respiratory effort Cardio Jugular Venous Distention: JVD Palpation: palpable S3 Rhythm: regular rhythm Heart Sounds: murmur GI normal to inspection, nondistended, normoactive bowel sounds no CVA tenderness Back/Spine no CVA tenderness Extremity General Extremity: edema Risk Stratification Risk Stratification Applicable: No Objective Data Vital Signs: Vital Signs Temp Pulse Resp BP Pulse Ox O2 Del Method O2 Flow Rate 97.6 F L 52 L 16 104/90 H 100 Room Air 2 01/07/25 10:35 01/07/25 10:35 01/07/25 10:35 01/07/25 10:35 01/07/25 10:35 01/07/25 10:35 01/04/25 22:00 Oxygen Flow Rate (L/min) 2 Oxygen Delivery Method Room Air Weight: 165 lb 9.074 oz Body Mass Index (BMI) 21.8 Intake & Output: Intake and Output for Last 24 Hours 01/05/25 01/06/25 01/07/25 23:59 23:59 23:59 Intake Total 1945 / 1945 170 / 754 724 / 724 Output Total 1350 / 1350 2550 / 2550 Balance 595 / 595 170 / -696 -1826 / -1826 Lab / Micro Data 01/06/25 05:10 01/07/25 05:25 Labs: Laboratory Results - last 24 hr 01/07/25 05:25: Sodium 141, Potassium 3.1 L, Chloride 102, Carbon Dioxide 28.4, Anion Gap 10, BUN 23 H, Creatinine 1.75 H, Estim Creat Clear Calc 56.03, Est GFR(MDRD) Non-Af 48 L, BUN/Creatinine Ratio 13.1, Glucose 94, Calcium 8.0, Total Bilirubin 2.65 H, AST 29, ALT 20, Alkaline Phosphatase 585 H, Total Protein 6.0,Albumin 3.2 L, Globulin 2.8, Albumin/Globulin Ratio 1.1 Rhythm Strip Rhythm Strip: Sinus bradycardia Rate: 55 Ectopy: None Cardiology Labs/Tests 01/07/25 05:25: Sodium 141, Potassium 3.1 L, Chloride 102, Carbon Dioxide 28.4, Anion Gap 10, BUN 23 H, Creatinine 1.75 H, Est GFR (MDRD) Non-Af 48 L, BUN/Creatinine Ratio 13.1, Glucose 94, Calcium 8.0, Total Bilirubin 2.65 H Rhythm: EKG: ECHO: Stress Test: Cardiac Cath: PCI: CT Surgery: Holter monitor: EPS: PPM: CXR: Chest CT Scan: 01/07/25 1437 <Electronically signed by Lavon Campo MD> Cosigner Signature (if applicable): CC: No Primary Care Physician~ Signed [facility] Work Phone: [phone] 570-187107-11-2025 Consult note [facility] Medical Records Department [address] [place] [address] Consultation - Cardiology 01/07/25 1336 MR#: [id number] Acct: [id number] Name: CARLO MEDINA Rep #:[id number] : 1980 44 From: Lavon Campo MD PCP: Care Physician,No Primary Status :ADM IN Location: [place] [address] Assessment & Plan Assessment/Plan (1) HFrEF (heart failure with reduced ejection fraction): PLAN: Continue with with isosorbide dinitrate Start hydralazine 25 mg daily Hold off on starting beta-jerome given complete heart block Continue with furosemide 40 mg IV every 8 Once creatinine is back to baseline start losartan 25 mg daily He will need to be on spironolactone and SGLT2 Recommend transferring the patient to [facility] for BiV evaluation. Noncompliance is a major issue. 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 Patient will be need to be transferred for BiV evaluation in the setting of complete heart block and reduced EF. The only caveat he is not optimized from GDMT standpoint. HPI Consult Data Date of Consult: 01/07/25 HPI Narrative HPI Narrative: CARLO MEDINA, is a 44 male with a history of nonischemic cardiomyopathy with an ejection fractionof 20% ,CKD stage 3 presents with progressive shortness of breath and edema. he has increased weight gain of about 10 pounds with period time. Has had numerous hospitalizations over at [facility] [place] and recently was over at [facility] [place] in September. It is documented throughout his charts at [facility], [place] as well as [facility] that he has a history of noncompliance. Patient at home has been taking apixaban and isosorbide. Patient has not been put on LUCRECIA inhibitors no angiotensin receptor blockers given chronic kidney disease. Because of his weight gain, shortness of breath, he presented to the ED. His BNP was 25,000, total bilirubin 4.32, direct bilirubin 2.68, creatinine 2.03. Chest x-ray showssome mild pulmonary vascular congestion but also cardiomegaly. he was found to have second degree av block with intermittent CHB. [facility] Medical History Kidney disease Non-smoker Irregular heart beat DVT (deep venous thrombosis) CKD (chronic kidney disease) Cardiomyopathy Left bundle branch block Noncompliance Pulmonary embolism CHF (congestive heart failure) Home Medications ?Medication ?Instructions ?Recorded ?Last Taken ?Type apixaban 5 mg tablet (Eliquis) 5 mg PO BID 01/04/25 Un known History bumetanide 1 mg tablet 1 mg PO BID 01/04/25 Unknown History isosorbide dinitrate 20 mg tablet 20 mg PO Q8H 5 Unknown History Allergy/AdvReac Type Severity Reaction Status Date / Time No Known Allergies Allergy Verified 01/04/25 07:32 Family History Father Heart disease Brother Heart disease Social History Smoking Status: Never smoker alcohol intake: never substance use type: does not use Physical Exam Const alert Resp normal respiratory effort Cardio Jugular Venous Distention: JVD Palpation: palpable S3 Rhythm: regular rhythm Heart Sounds: murmur GI normal to inspection, nondistended, normoactive bowel sounds no CVA tenderness Back/Spine no CVA tenderness Extremity General Extremity: edema Risk Stratification Risk Stratification Applicable: No Objective Data Vital Signs: Vital Signs Temp Pulse Resp BP Pulse Ox O2 Del Method O2 Flow Rate 97.6 F L 52 L 16 104/90 H 100 Room Air 2 01/07/25 10:35 01/07/25 10:35 01/07/25 10:35 01/07/25 10:35 01/07/25 10:35 01/07/25 10:35 01/04/25 22:00 Oxygen Flow Rate (L/min) 2 Oxygen Delivery Method Room Air Weight: 165 lb 9.074 oz Body Mass Index (BMI) 21.8 Intake & Output: Intake and Output for Last 24 Hours 01/05/25 01/06/25 01/07/25 23:59 23:59 23:59 Intake Total 1945 / 1945 170 / 754 724 / 724 Output Total 1350 / 1350 2550 / 2550 Balance 595 / 595 170 / -696 -1826 / -1826 Lab / Micro Data 01/06/25 05:10 01/07/25 05:25 Labs: Laboratory Results - last 24 hr 01/07/25 05:25: Sodium 141, Potassium 3.1 L, Chloride 102, Carbon Dioxide 28.4, Anion Gap 10, BUN 23 H, Creatinine 1.75 H, Estim Creat Clear Calc 56.03, Est GFR(MDRD) Non-Af 48 L, BUN/Creatinine Ratio 13.1, Glucose 94, Calcium 8.0, Total Bilirubin 2.65 H, AST 29, ALT 20, Alkaline Phosphatase 585 H,Total Protein 6.0,Albumin 3.2 L, Globulin 2.8, Albumin/Globulin Ratio 1.1 Rhythm Strip Rhythm Strip: Sinus bradycardia Rate: 55 Ectopy: None Cardiology Labs/Tests 01/07/25 05:25: Sodium 141, Potassium 3.1 L, Chloride 102, Carbon Dioxide 28.4, Anion Gap 10, BUN 23 H, Creatinine 1.75 H, Est GFR (MDRD) Non-Af 48 L, BUN/Creatinine Ratio 13.1, Glucose 94, Calcium 8.0, Total Bilirubin 2.65 H Rhythm: EKG: ECHO: Stress Test: Cardiac Cath: PCI: CT Surgery: Holter monitor: EPS: PPM: CXR: Chest CT Scan: 01/07/25 1437 Cosigner Signature (if applicable): CC: No Primary Care Physician~ Signed [facility]07-10-2025 Progress note Author Anshul Lemus [facility] Note Date/Time January 06, 2025 2:08 pm [facility] Medical Records Department [address] [place] [address] Progress Note - Hospitalist 01/06/25 0823 MR#: [id number] Acct: [id number] Name: CARLO MEDINA Rep #:[id number] : 1980 44 From: Anshul Lemus DO PCP: Care Physician,No Primary Status :ADM IN Location: [place] [id number] Reason for Visit Reason for Visit: Diagnoses Unspecified systolic (congestive) heart failure (01/04/25) Chronic kidney disease, stage 3b (01/04/25) Unspecified jaundice (01/04/25) Subjective Subjective I commented to him that he seems to be breathing well without oxygen as nasal cannula is off but he stated to me that he was actually on oxygen. Stated that is still has swelling in his ankles. Objective Data Objective Data Vital Signs: Vital Signs Temp Pulse Resp BP Pulse Ox O2 Del Method O2 Flow Rate 36.7 C 55 L 18 111/83 H 100 Room Air 2 01/06/25 03:40 01/06/25 03:40 01/06/25 03:40 01/06/25 03:40 01/06/25 03:40 01/06/25 04:28 01/04/25 22:00 Oxygen Flow Rate (L/min) 2 Oxygen Delivery Method Room Air Weight: 76.3 kg Body Mass Index (BMI) 22.1 Intake & Output: Intake and Output for Last 24 Hours 01/04/25 01/05/25 01/06/25 23:59 23:59 23:59 Intake Total 1945 / 1945 170 / 170 Output Total 1350 / 1350 Balance 595 / 595 170 / 170 Lab / Micro Data 01/06/25 05:10 01/06/25 05:10 Labs: Laboratory Results - last 24 hr 01/05/25 08:33: WBC 6.4, RBC 3.87 L, Hgb 12.9 L, Hct 39.7 L, MCV 102.6 H, MCH 33.3 H, MCHC 32.5, RDW Std Deviation 56.2 H, RDW Coeff of Juan 15.0 H, Plt Count 229, MPV 10.0, Immature Gran % (Auto) 0.300, Neut % (Auto) 65.7, Lymph % (Auto) 25.5, [place] % (Auto) 7.4, Eos % (Auto) 0.6, Baso % (Auto) 0.5, Absolute Neuts (auto) 4.2, Absolute Lymphs (auto) 1.62, Nucleated RBC % 0, PT 19.4 H, INR 1.6, Sodium 144, Potassium 3.1 L, Chloride 103, Carbon Dioxide 25.7, Anion Gap 15, BUN 29 H, Creatinine 2.02 H, Estim Creat Clear Calc 49.31 L, Est GFR (MDRD) Non-Af 40 L, BUN/Creatinine Ratio 14.6, Glucose 124 H, Calcium 8.9, Total Bilirubin 4.16 H, AST 29, ALT 22, Alkaline Phosphatase 751 H, Total Protein 6.8, Albumin 3.4 L, Globulin 3.4, Albumin/Globulin Ratio 1.0, Triglycerides 88, Cholesterol 159, LDL Cholesterol, Calc 112, VLDL Cholesterol 18, HDL Cholesterol 29 L, Cholesterol/HDL Ratio 5.48 01/06/25 05:10: WBC 6.1, RBC 3.54 L, Hgb 11.9 L, Hct 37.0 L, MCV 104.5 H, MCH 33.6 H, MCHC 32.2, RDW Std Deviation 57.7 H, RDW Coeff of Juan 15.0 H, Plt Count 219, MPV 10.0, Immature Gran % (Auto) 0.200, Neut % (Auto) 61.6, Lymph % (Auto) 28.0, [place] % (Auto) 8.9, Eos % (Auto) 1.0, Baso % (Auto) 0.3, Absolute Neuts (auto) 3.8, Absolute Lymphs (auto) 1.71, Nucleated RBC % 0, Sodium 143, Potassium 3.1 L, Chloride 103, Carbon Dioxide 26.8, Anion Gap 13, BUN 27 H, Creatinine 1.91 H, Estim Creat Clear Calc 52.15, Est GFR (MDRD) Non-Af 43 L, BUN/Creatinine Ratio 14.3, Glucose 97, Calcium 8.2, Total Bilirubin 2.99 H, AST 27, ALT 19, Alkaline Phosphatase 638 H, Total Protein 6.0, Albumin 3.1 L, Globulin 2.9, Albumin/Globulin Ratio 1.1 Rhythm Strip Rhythm Strip: Sinus bradycardia Rate: 55 Ectopy: None Physical Exam Const alert and no apparent distress HEENT head/scalp atraumatic and moist oral mucous membranes Extremity Extremity Narrative: 2+ lower extremity edema. Assessment & Plan Assessment/Plan (1) HFrEF (heart failure with reduced ejection fraction): PLAN: Patient takes Bumex as outpatient. Did recommend initiating furosemide infusion. Patient Ress reservations about that because he did not want to be limited in regards to his mobility about being tied down to IV pump. He requested the boluses instead. I did explain to him that it would likely expedite more rapid removal but also being safer on the kidneys. Expressed understanding but prefers boluses instead. So we will utilize furosemide 40 mg IV every 8 hours for the time being. Holding off on LUCRECIA inhibitors and angiotensin receptor blockers given CKD. As well as Entresto. Will start empagliflozin however. Repeat echocardiogram as previous ejection fraction has been documented as 20%. Had very lengthy conversation with he and his girlfriend at bedside about the indication for defibrillator to help defibrillate in the event of cardiac arrestsuch as ventricular fibrillation which she is at high risk for. Continues to decline that though he wishes to be full code. Will fluid restrict. Check daily weights. Did discuss the case with Dr. Almaraz. He said he would be happy to follow-up with the patient as outpatient. No acute cardiac needs at this point time so wewill hold off on cardiology consultation at present. Patient states that he is had a left heart catheterization which has been normal. States that he vomited Jardiance. Will not provide further. Explained the importance of guideline directed therapy. Tried to reassure patient that medications are meant to overall improve his cardiac function with medication. Iexplained that he is to follow up with cardiology as outpt. Explained that if does not improve, it is possible that he may require a heart transplant. Transplant has been mentioned to him before. (2) Elevated bilirubin: PLAN: Trending down. Suspect due to hepatic congestion due to his cardiomyopathy. Unclear if he has cirrhosis (despite other documentation indicating that he does). (3) CKD stage 3b, GFR 30-44 ml/min: PLAN: Stable. Monitor closely while on diuretics. (4) Hypokalemia: PLAN: Continue replacement. Check magnesium. Likely 2/2 diuresis. PLAN: Plan History of PE: Continue with apixaban History of noncompliance: Per previous documentation from [facility] [place] as well [facility]. Patient is steadfast in regards to doing only what he wants to do despite recommendations that may go against what he would want to do, such as furosemide as above. Expressed that he and his fianc?e that we will respect hisautonomy in regards to his decisions but did express to him over that it is important that he have education in regards to the risks of his decisions so that he has thorough understanding of potential outcomes. VTE prophylaxis: Not indicated as patient is already on apixaban CODE STATUS: Addressed with patient. Patient wishes to be full code. He understands that he is at higher risk for lethal cardiac arrhythmias, such as ventricular fibrillation, given his cardiomyopathy. Disposition: To be determined. Dissipate the patient may be ready to be discharged as early as the . I brought this up to the patient's attention and he stated that would not work as his girlfriend has something else going on that day. Did discuss with case management. Charges/Coding Visit Charges Inpatient E&M: 30376 Subs Hosp L2 01/06/25 1407 <Electronically signed by Anshul Lemus DO> Cosigner Signature (if applicable): CC: ~ Signed [facility] Work Phone: [phone]) 368-376607-10-2025 Progress note [facility] Medical Records Department [address] [place] [address] Progress Note - Hospitalist 01/06/25822 MR#: [id number] Acct: [id number] Name: CARLO MEDINA Rep #:[id number] : 1980 44 From: Anshul Lemus DO PCP: Care Physician,No Primary Status :ADM IN Location: [place] [address] Reason for Visit Reason for Visit: Diagnoses Unspecified systolic (congestive) heart failure (01/04/25) Chronic kidney disease, stage 3b (01/04/25) Unspecified jaundice (01/04/25) Subjective Subjective I commented to him that he seems to be breathing well without oxygen as nasal cannula is off but hestated to me that he was actually on oxygen. Stated that is still has swelling in his ankles. Objective Data Objective Data Vital Signs: Vital Signs Temp Pulse Resp BP Pulse Ox O2 Del Method O2 Flow Rate 36.7 C 55 L 18 111/83 H 100 Room Air 2 01/06/25 03:40 01/06/25 03:40 01/06/25 03:40 01/06/25 03:40 01/06/25 03:40 01/06/25 04:28 01/04/25 22:00 Oxygen Flow Rate (L/min) 2 Oxygen Delivery Method Room Air Weight: 76.3 kg Body Mass Index (BMI) 22.1 Intake & Output: Intake and Output for Last 24 Hours 01/04/25 01/05/25 01/06/25 23:59 23:59 23:59 Intake Total 1945 / 1945 170 / 170 Output Total 1350 / 1350 Balance 595 / 595 170 / 170 Lab / Micro Data 01/06/25 05:10 01/06/25 05:10 Labs: Laboratory Results - last 24 hr 01/05/25 08:33: WBC 6.4, RBC 3.87 L, Hgb 12.9 L, Hct 39.7 L, MCV 102.6 H, MCH 33.3 H, MCHC 32.5, RDW Std Deviation 56.2 H, RDW Coeff of Juan 15.0 H, Plt Count 229, MPV 10.0, Immature Gran % (Auto) 0.300, Neut % (Auto) 65.7, Lymph % (Auto) 25.5, [place] % (Auto) 7.4, Eos % (Auto) 0.6, Baso % (Auto) 0.5,Absolute Neuts (auto) 4.2, Absolute Lymphs (auto) 1.62, Nucleated RBC % 0, PT 19.4 H, INR 1.6, Sodium 144, Potassium 3.1 L, Chloride 103, Carbon Dioxide 25.7, Anion Gap 15, BUN 29 H, Creatinine 2.02 H, Estim Creat Clear Calc 49.31 L, Est GFR (MDRD) Non- Af 40 L, BUN/Creatinine Ratio 14.6, Glucose 124 H, Calcium 8.9, Total Bilirubin 4.16 H, AST 29, ALT 22, Alkaline Phosphatase 751 H, Total Protein 6.8, Albumin 3.4 L, Globulin 3.4, Albumin/Globulin Ratio 1.0, Triglycerides 88, Cholesterol 159, LDLCholesterol, Calc 112, VLDL Cholesterol 18, HDL Cholesterol 29 L, Cholesterol/HDL Ratio 5.48 01/06/25 05:10: WBC 6.1, RBC 3.54 L, Hgb 11.9 L, Hct 37.0 L, MCV 104.5 H, MCH 33.6 H, MCHC 32.2, RDW Std Deviation 57.7 H, RDW Coeff of Juan 15.0 H, Plt Count 219, MPV 10.0, Immature Gran % (Auto) 0.200, Neut % (Auto) 61.6, Lymph % (Auto) 28.0, [place] % (Auto) 8.9, Eos % (Auto) 1.0, Baso % (Auto) 0.3,Absolute Neuts (auto) 3.8, Absolute Lymphs (auto) 1.71, Nucleated RBC % 0, Sodium 143, Potassium 3.1 L, Chloride 103, Carbon Dioxide 26.8, Anion Gap 13, BUN 27 H, Creatinine 1.91 H, Estim Creat ClearCalc 52.15, Est GFR (MDRD) Non-Af 43 L, BUN/Creatinine Ratio 14.3, Glucose 97, Calcium 8.2, Total Bilirubin 2.99 H, AST 27, ALT 19, Alkaline Phosphatase 638 H, Total Protein 6.0, Albumin 3.1 L, Globul in 2.9, Albumin/Globulin Ratio 1.1 Rhythm Strip Rhythm Strip: Sinus bradycardia Rate: 55 Ectopy: None Physical Exam Const alert and no apparent distress HEENT head/scalp atraumatic and moist oral mucous membranes Extremity Extremity Narrative: 2+ lower extremity edema. Assessment & Plan Assessment/Plan (1) HFrEF (heart failure with reduced ejection fraction): PLAN: Patient takes Bumex as outpatient. Did recommend initiating furosemide infusion. Patient Ressreservations about that because he did not want to be limited in regards to his mobility about being tied down to IV pump. He requested the boluses instead. I did explain to him that it would likely e xpedite more rapid removal but also being safer on the kidneys. Expressed understanding but prefersboluses instead. So we will utilize furosemide 40 mg IV every 8 hours for the time being. Holding off on LUCRECIA inhibitors and angiotensin receptor blockers given CKD. As well as Entresto. Will start empagliflozin however. Repeat echocardiogram as previous ejection fraction has been documented as 20%. Had very lengthy conversation with he and his girlfriend at bedside about the indication for defibrillator to help defibrillate in the event of cardiac arrestsuch as ventricular fibrillation which she is at high risk for. Continues to decline that though he wishes to be full code. Will fluid restrict. Check daily weights. Did discuss the case with Dr. Almaraz. He said he would be happy to follow-up with the patient as outpatient. No acute cardiac needs at this point time so piyush hold off on cardiology consultation at present. Patient states that he is had a left heart catheterization which has been normal. States that he vomited Jardiance. Will not provide further. Explained the importance of guideline directed therapy. Tried to reassure patient that medications are meant to overall improve his cardiacfunction with medication. Iexplained that he is to follow up with cardiology as outpt. Explained that if does not improve, it is possible that he may require a heart transplant. Transplant has been mentioned to him before. (2) Elevated bilirubin: PLAN: Trending down. Suspect due to hepatic congestion due to his cardiomyopathy. Unclear if he has cirrhosis (despite other documentation indicating that he does). (3) CKD stage 3b, GFR 30-44 ml/min: PLAN: Stable. Monitor closely while on diuretics. (4) Hypokalemia: PLAN: Continue replacement. Check magnesium. Likely 2/2 diuresis. PLAN: Plan History of PE: Continue with apixaban History of noncompliance: [facility] [place] [facility] Patient is steadfast in regards to doing only what he wants to do despite recommendations that may go against what he would want to do, such as furosemide as above. Expressed that he and his fianc?e that we will respect hisautonomy in regards to his decisions but did express to him over that it is important that he have education in regards to the risks of his decisions so that he has thorough understanding of potential outcomes. VTE prophylaxis: Not indicated as patient is already on apixaban CODE STATUS: Addressed with patient. Patient wishes to be full code. He understands that he is at higher risk for lethal cardiac arrhythmias, such as ventricular fibrillation, given his cardiomyopathy. Disposition: To be determined. Dissipate the patient may be ready to be discharged as early as the . I brought this up to the patient's attention and he stated that would not work as his girlfriend has something else going on that day. Did discuss with case management. Charges/Coding Visit Charges Inpatient E&M: 34943 Subs Hosp L2 01/06/25 1401 Cosigner Signature (if applicable): CC: ~ Signed [facility]07-09-2025 Progress note Author Anshul Lemus [facility] Note Date/Time January 05, 2025 2:56p m [facility] Medical Records Department [address] [place] [address] Progress Note - Hospitalist 01/05/25804 MR#: [id number] Acct: [id number] Name: CARLO MEDINA Rep #:[id number] : 1980 44 From: Anshul Lemus DO PCP: Care Physician,No Primary Status :ADM IN Location: [place] [address] Reason for Visit Reason for Visit: Diagnoses Unspecified systolic (congestive) heart failure (01/04/25) Chronic kidney disease, stage 3b (01/04/25) Unspecified jaundice (01/04/25) Subjective Subjective Still short of breath. Decline IV sticks for blood draws. Stated he vomited after taking Jardiance. Objective Data Objective Data Vital Signs: Vital Signs Temp Pulse Resp BP Pulse Ox O2 Del Method O2 Flow Rate 36.6 C 53 L 18 120/89 H 98 Room Air 2 01/05/25 05:47 01/05/25 05:47 01/05/25 05:47 01/05/25 05:47 01/05/25 05:47 01/05/25 06:08 01/04/25 22:00 Oxygen Flow Rate (L/min) 2 Oxygen Delivery Method Room Air Weight: 79.8 kg Body Mass Index (BMI) 23.2 Intake & Output: Intake and Output for Last 24 Hours 01/03/25 01/04/25 01/05/25 23:59 23:59 23:59 Intake Total 500 / 500 Balance 500 / 500 Lab / Micro Data 01/05/25 08:33 01/05/25 08:33 Labs: Laboratory Results - last 24 hr 01/04/25 09:34: WBC 6.2, RBC 3.90 L, Hgb 12.9 L, Hct 40.6, MCV 104.1 H, MCH 33.1H, MCHC 31.8 L, RDW Std Deviation 57.5 H, RDW Coeff of Juan 15.0 H, Plt Count 219, MPV 10.4, Immature Gran % (Auto) 0.200, Neut % (Auto) 59.5, Lymph % (Auto) 30.6, [place] % (Auto) 9.1, Eos % (Auto) 0.3, Baso % (Auto) 0.3, Absolute Neuts (auto) 3.7, Absolute Lymphs (auto) 1.88, Nucleated RBC % 0.3, Sodium 144, Potassium 3.7, Chloride 105, Carbon Dioxide 25.2, Anion Gap 14, BUN 30 H, Creatinine 2.03 H, Estim Creat Clear Calc 51.39, Est GFR (MDRD) Non-Af 40 L, BUN/Creatinine Ratio 14.9, Glucose 97, Calcium 9.0, Total Bilirubin 4.32 H, Direct Bilirubin 2.68 H, AST 28, ALT 22, Alkaline Phosphatase 743 H, Troponin T High Sens 45 H, [place] [address] H, Total Protein 6.8, Albumin 3.6, Globulin 3.2, Lipase 15 01/04/25 11:20: Troponin T Hi Sens 2 Hr 42 H 01/04/25 13:36: Troponin T Hi Sens 4Hr 45 H Radiography Diagnostic Testing: Radiology Impression Chest X-Ray 01/04/25 08:25 IMPRESSION: Bibasilar atelectasis or pneumonia. Reading Location: [facility] Abdomen Ultrasound 01/04/25 11:03 IMPRESSION: 1. Ascites. 2. Fatty infiltration of the liver. Reading Location: [facility] Echocardiogram 01/04/25 14:32 Interpretation Summary Severely dilated left ventricle. The left ventricular ejection fraction is 15 %. Stage 3 diastolic dysfunction. The inferior vena cava is dilated Mild (1+) aortic valve insufficiency. Small (<1.0 cm) pericardial effusion. Ordering Physician: Anshul Lemus Performed By: Amrita Vail RDCS Rhythm Strip Rhythm Strip: Sinus bradycardia Rate: 55 Ectopy: None Physical Exam Const alert and no apparent distress HEENT head/scalp atraumatic and moist oral mucous membranes Resp normal respiratory effort, no retractions, no use of accessory muscles and clearto auscultation bilaterally Cardio regular rate, regular rhythm, S1 normal heart sound and S2 normal heart sound GI normal to inspection, nondistended, normoactive bowel sounds, soft to palpation,non-tender and non-distended Extremity General Extremity: edema Assessment & Plan Assessment/Plan (1) HFrEF (heart failure with reduced ejection fraction): PLAN: Patient takes Bumex as outpatient. Did recommend initiating furosemide infusion. Patient Ress reservations about that because he did not want to be limited in regards to his mobility about being tied down to IV pump. He requested the boluses instead. I did explain to him that it would likely expedite more rapid removal but also being safer on the kidneys. Expressed understanding but prefers boluses instead. So we will utilize furosemide 40 mg IV every 8 hours for the time being. Holding off on LUCRECIA inhibitors and angiotensin receptor blockers given CKD. As well as Entresto. Will start empagliflozin however. Repeat echocardiogram as previous ejection fraction has been documented as 20%. Had very lengthy conversation with he and his girlfriend at bedside about the indication for defibrillator to help defibrillate in the event of cardiac arrestsuch as ventricular fibrillation which she is at high risk for. Continues to decline that though he wishes to be full code. Will fluid restrict. Check daily weights. Did discuss the case with Dr. Almaraz. He said he would be happy to follow-up with the patient as outpatient. No acute cardiac needs at this point time so wewill hold off on cardiology consultation at present. Patient states that he is had a left heart catheterization which has been normal. States that he vomited Jardiance. Will not provide further. Explained the importance of guideline directed therapy. Tried to reassure patient that medications are meant to overall improve his cardiac function with medication. Iexplained that he is to follow up with cardiology as outpt. Explained that if does not improve, it is possible that he may require a heart transplant. Transplant has been mentioned to him before. (2) Elevated bilirubin: PLAN: Suspect due to hepatic congestion due to his cardiomyopathy. (3) CKD stage 3b, GFR 30-44 ml/min: PLAN: Monitor closely while on diuretics. PLAN: Plan History of PE: Continue with apixaban History of noncompliance: Per previous documentation [facility] [place] [facility] Patient is steadfast in regards to doing only what he wants to do despite recommendations that may go against what he would want to do, such as furosemide as above. Expressed that he and his fianc?e that we will respect hisautonomy in regards to his decisions but did express to him over that it is important that he have education in regards to the risks of his decisions so that he has thorough understanding of potential outcomes. VTE prophylaxis: Not indicated as patient is already on apixaban CODE STATUS: Addressed with patient. Patient wishes to be full code. He understands that he is at higher risk for lethal cardiac arrhythmias, such as ventricular fibrillation, given his cardiomyopathy. Charges/Coding Visit Charges Inpatient E&M: 65066 Subs Hosp L2 01/05/25 1456 <Electronically signed by Anshul Lemus DO> Cosigner Signature (if applicable): CC: ~ Signed [facility] Work Phone: [phone]) 449-707907-09-20[address] Progress note [facility] Medical Records Department [address] [place] [address] Progress Note - Hospitalist 01/05/25 0805 MR#: [id number] Acct: [id number] Name: CARLO MEDINA Rep #:[id number] : 1980 44 From: Anshul Lemus DO PCP: Care Physician,No Primary Status :ADM IN Location: [place] [address] Reason for Visit Reason for Visit: Diagnoses Unspecified systolic (congestive) heart failure (01/04/25) Chronic kidney disease, stage 3b (01/04/25) Unspecified jaundice (01/04/25) Subjective Subjective Still short of breath. Decline IV sticks for blood draws. Stated he vomited after taking Jardiance. Objective Data Objective Data Vital Signs: Vital Signs Temp Pulse Resp BP Pulse Ox O2 Del Method O2 Flow Rate 36.6 C 53 L 18 120/89 H 98 Room Air 2 01/05/25 05:47 01/05/25 05:47 01/05/25 05:47 01/05/25 05:47 01/05/25 05:47 01/05/25 06:08 01/04/25 22:00 Oxygen Flow Rate (L/min) 2 Oxygen Delivery Method Room Air Weight: 79.8 kg Body Mass Index (BMI) 23.2 Intake & Output: Intake and Output for Last 24 Hours 01/03/25 01/04/25 01/05/25 23:59 23:59 23:59 Intake Total 500 / 500 Balance 500 / 500 Lab / Micro Data 01/05/25 08:33 01/05/25 08:33 Labs: Laboratory Results - last 24 hr 01/04/25 09:34: WBC 6.2, RBC 3.90 L, Hgb 12.9 L, Hct 40.6, MCV 104.1 H, MCH 33.1H, MCHC 31.8 L, RDWStd Deviation 57.5 H, RDW Coeff of Juan 15.0 H, Plt Count 219, MPV 10.4, Immature Gran % (Auto) 0.200, Neut % (Auto) 59.5, Lymph % (Auto) 30.6, [place] % (Auto) 9.1, Eos % (Auto) 0.3, Baso % (Auto) 0.3, Absolute Neuts (auto) 3.7, Absolute Lymphs (auto) 1.88, Nucleated RBC % 0.3, Sodium 144, Potassium 3.7, Chloride 105, Carbon Dioxide 25.2, Anion Gap 14, BUN 30 H, Creatinine 2.03 H, Estim Creat Clear Calc 51.39, Est GFR (MDRD) Non-Af 40 L, BUN/Creatinine Ratio 14.9, Glucose 97, Calcium 9.0, Total Bilirubin 4.32 H, Direct Bilirubin 2.68 H, AST 28, ALT 22, Alkaline Phosphatase 743 H, Troponin T HighSens 45 H, [place] [address] H, Total Protein 6.8, Albumin 3.6, Globulin 3.2, Lipase 15 01/04/25 11:20: Troponin T Hi Sens 2 Hr 42 H 01/04/25 13:36: Troponin T Hi Sens 4Hr 45 H Radiography Diagnostic Testing: Radiology Impression Chest X-Ray 01/04/25 08:25 IMPRESSION: Bibasilar atelectasis or pneumonia. Reading Location: [facility] Abdomen Ultrasound 01/04/25 11:03 IMPRESSION: 1. Ascites. 2. Fatty infiltration of the liver. Reading Location: [facility] Echocardiogram 01/04/25 14:32 Interpretation Summary Severely dilated left ventricle. The left ventricular ejection fraction is 15 %. Stage 3 diastolic dysfunction. The inferior vena cava is dilated Mild (1+) aortic valve insufficiency. Small (<1.0 cm) pericardial effusion. Ordering Physician: Anshul Lemus Performed By: Amrita Vail RDCS Rhythm Strip Rhythm Strip: Sinus bradycardia Rate: 55 Ectopy: None Physical Exam Const alert and no apparent distress HEENT head/scalp atraumatic and moist oral mucous membranes Resp normal respiratory effort, no retractions, no use of accessory muscles and clearto auscultation bilaterally Cardio regular rate, regular rhythm, S1 normal heart sound and S2 normal heart sound GI normal to inspection, nondistended, normoactive bowel sounds, soft to palpation,non-tender and non-distended Extremity General Extremity: edema Assessment & Plan Assessment/Plan (1) HFrEF (heart failure with reduced ejection fraction): PLAN: Patient takes Bumex as outpatient. Did recommend initiating furosemide infusion. Patient Ressreservations about that because he did not want to be limited in regards to his mobility about being tied down to IV pump. He requested the boluses instead. I did explain to him that it would likely e xpedite more rapid removal but also being safer on the kidneys. Expressed understanding but prefersboluses instead. So we will utilize furosemide 40 mg IV every 8 hours for the time being. Holding off on LUCRECIA inhibitors and angiotensin receptor blockers given CKD. As well as Entresto. Will start empagliflozin however. Repeat echocardiogram as previous ejection fraction has been documented as 20%. Had very lengthy conversation with he and his girlfriend at bedside about the indication for defibrillator to help defibrillate in the event of cardiac arrestsuch as ventricular fibrillation which she is at high risk for. Continues to decline that though he wishes to be full code. Will fluid restrict. Check daily weights. Did discuss the case with Dr. Almaraz. He said he would be happy to follow-up with the patient as outpatient. No acute cardiac needs at this point time so wewinoe hold off on cardiology consultation at present. Patient states that he is had a left heart catheterization which has been normal. States that he vomited Jardiance. Will not provide further. Explained the importance of guideline directed therapy. Tried to reassure patient that medications are meant to overall improve his cardiacfunction with medication. Iexplained that he is to follow up with cardiology as outpt. Explained that if does not improve, it is possible that he may require a heart transplant. Transplant has been mentioned to him before. (2) Elevated bilirubin: PLAN: Suspect due to hepatic congestion due to his cardiomyopathy. (3) CKD stage 3b, GFR 30-44 ml/min: PLAN: Monitor closely while on diuretics. PLAN: Plan History of PE: Continue with apixaban History of noncompliance: [facility] Patient is steadfast in regards to doing only what he wants to do despite recommendations that may go against what he would want to do, such as furosemide as above. Expressed that he and his fianc?e that we will respect hisautonomy in regards to his decisions but did express to him over that it is important that he have education in regards to the risks of his decisions so that he has thorough understanding of potential outcomes. VTE prophylaxis: Not indicated as patient is already on apixaban CODE STATUS: Addressed with patient. Patient wishes to be full code. He understands that he is at higher risk for lethal cardiac arrhythmias, such as ventricular fibrillation, given his cardiomyopathy. Charges/Coding Visit Charges Inpatient E&M: 46263 Subs Hosp L2 01/05/25 4818 Cosigner Signature (if applicable): CC: ~ Signed [facility]07-08-2025 Discharge summary Author Deborah Penaloza [facility] Note Date/Time January 04, 2025 4:15p m [facility] Medical Records Department [address] [facility] [place] [address] Emergency Department Summary 01/04/25 MR#: [id number] Acct: [id number] Name: CARLO MEDINA Rep #:[id number] : 1980 44 From: Deborah Ravi PCP: Care Physician,No Primary Status :ADM IN Location: [address] History of Present Illness Chief Complaint: Shortness of Breath Informant: patient and spouse/S.O. Narrative Narrative: Patient is a 44-year-old male with ported history of heart failure who states has been out of the hospital frequently over the past few months and states thathe is on Bumex andEliquis Eliquis presenting with worsening shortness of breath as well as swelling. He states he has had weight gain over the past 3 weeks with increased shortness of breath/dyspnea on exertion. Does report nonproductive cough. States he is not sleeping well at night. Denies any chestpain. States he is now having swelling in his stomach and because of this he has not had much appetite since yesterday. This prompted him to come to the emergency room. He is also having increased swelling of his legs. He states kazly receives his care through [facility], [place] because of his insurance but has had a hard time following up and getting to appointments because of transportation andthe distance. States he has been compliant with his medications. Is in the process of trying to establish down here in [place]. Denies any chest pain. Denies any fever or chills. Denies any change in urination. Patient does not know what triggered his fluid overload. Note from inpatient encounter at [facility] on 10/26/2024 she is at patient has history of heart failure with reduced ejection fraction, cardiogenic shock and healthcare associated pneumonia as well as DVT. He has CKD stage IIIb as well as cirrhosis. There is a reported history of left bundle branch block, hasissue with compliance of therapy and at that time wanted to be discharged home . Reported ejection fraction 15%. [facility] Medical History (Updated 01/04/25 @ 16:[address] Deborah Penaloza, DO) Kidney disease Non-smoker Irregular heart beat DVT (deep venous thrombosis) CKD (chronic kidney disease) Cardiomyopathy Left bundle branch block Noncompliance Pulmonary embolism CHF (congestive heart failure) Home Medications ?Medication ?Instructions ?Recorded ?Last Taken ?Type apixaban 5 mg tablet (Eliquis) 5 mg PO BID 01/04/25 Un known History bumetanide 1 mg tablet 1 mg PO BID 01/04/25 Unknown History isosorbide dinitrate 20 mg tablet 20 mg PO Q8H 5 Unknown History Allergy/AdvReac Type Severity Reaction Status Date / Time No Known Allergies Allergy Verified 01/04/25 07:32 Family History (Updated 01/04/25 @ 13:[address] Anshul Lemus DO) Father Heart disease Brother Heart disease Social History (Updated 01/04/25 @ 13:[address] Anshul Lemus DO) Smoking Status: Never smoker alcohol intake: never substance use type: does not use ROS ROS ED Constitutional Constitutional ED: Denies chills or fever(s) Eyes Eyes: Denies change in vision Cardiovascular Cardiovascular: Denies chest pain or palpitations Respiratory/Chest Respiratory/Chest: Reports cough, dyspnea and dyspnea on exertion; Denies sputum Gastrointestinal Gastrointestinal: Reports diarrhea and other; Denies abdominal pain, melena, nausea or vomiting Musculoskeletal Musculoskeletal: Denies arthralgias or myalgias Integumentary Denies rash Neurologic Neurologic: Reports weakness Hematologic/Lymphatic Hematologic/Lymphatic: Reports easy bleeding and easy bruising EXAM Physical Exam Const Vital Signs: 01/04/25 07:28 01/04/25 07:52 01/04/25 08:26 Temperature 97.0 F L Temperature Source Temporal Pulse Rate 56 L 56 L Respiratory Rate 20 H 18 Respiratory Effort Normal Non-Labored Respiratory Depth Normal Respiratory Pattern Normal Blood Pressure 128/95 H Blood Pressure Mean 106 Pulse Ox 95 100 Oxygen Delivery Method Room Air Room Air Room Air Oxygen Flow Rate (L/min) 01/04/25 09:00 01/04/25 10:23 01/04/25 11:06 Temperature Temperature Source Pulse Rate 51 L 51 L 56 L Respiratory Rate 24 H 19 H 18 Respiratory Effort Respiratory Depth Respiratory Pattern Blood Pressure 123/109 H 121/96 H Blood Pressure Mean 113 104 Pulse Ox 95 98 96 Oxygen Delivery Method Room Air Nasal Cannula Nasal Cannula Oxygen Flow Rate (L/min) 2 2 01/04/25 12:00 01/04/25 13:00 Temperature Temperature Source Pulse Rate 55 L 54 L Respiratory Rate 19 H 28 H Respiratory Effort Respiratory Depth Respiratory Pattern Blood Pressure 121/71 H Blood Pressure Mean 87 Pulse Ox 99 Oxygen Delivery Method Nasal Cannula Oxygen Flow Rate (L/min) 2 Positive well nourished and well developed General Appearance ED: well developed and NAD HEENT Reports moist mucous membranes Eyes PERRL Neck supple Neck Narrative: Significant JVD present. Chest Wall inspection of chest normal and palpation of chest normal Resp Resp Narrative: Mild tachypnea. Crackles at the bases, more pronounced at the right lung base Cardio Cardio Narrative: Clicking diastolic murmur present Rate: bradycardia GI GI Narrative: Nontender abdomen. Abdominal distention with mild fluid wave present. Extremity Extremity Narrative: Pitting edema up to the mid thighs, 3+ Neuro oriented x3 Sensorium / Orientation: alert Motor Exam: general weakness Psych mental status grossly normal Skin no rashes or lesions noted and no wounds MDM MDM MDM Narrative Medical decision making narrative: Patient evaluated for worsening shortness of breath, swelling and abdominal distention. On exam patient was tachypneic and appears significantly fluid overloaded. Discharge summary from [facility] on 10/17 through 10/26 reviewed. Patient was admitted for acute on chronic heart failure with reduced ejection fraction, acute DVT of the lower extremity and acute on chronic CKD. He also had questionable pneumonia of the right lower lobe. Shows that he also has cirrhosis, mild transaminitis, mild elevation of his both direct and total bili movement and elevated creatinine. At that time patient presented for pneumonia but then there was concern that he went to cardiogenic shock was admitted to [facility]. There he refused IV therapies and base of intervention such as [place] or right heart catheterization. Lab work shows elevation of his creatinine of 2.03 with mild elevation of his BUN of 30. His creatinine baseline appears to be 2.0 per [facility] [place] documentation. He has elevation of his bilirubin but this is down from when he was in the hospital last. Bedside ultrasound performed by myself of the abdomen does show quite Siska with ascites. Given his significant elevation of his alkaline phosphatase and bilirubin did obtain ultrasound however this only showed ascites. He has high since he troponins are elevated but stable and I do not think this is an NSTEMI. BNP significantly elevated at 25,000. Given the patient's significant cardiac history, murmur which patient is unaware of havinghowever patient does seem to be a poor historian, and worsening ascites I do think he would benefit from mission for diuresis via IV. I did speak with Dr. Almaraz about the patient's case who states that it sounds like he would be fine to follow-up outpatient with cardiology and be admitted to the medicine service for diuresis. Case discussed with Dr. Lemus for admission. After discussion with Dr. Lemus states that he would prefer to order diuresis. Lab Data Attestation: I reviewed the patient's lab results. Labs: Laboratory Results - last 24 hr 01/04/25 01/04/25 01/04/25 09:34 11:20 13:36 WBC 6.2 RBC 3.90 L Hgb 12.9 L Hct 40.6 MCV 104.1 H MCH 33.1 H MCHC 31.8 L RDW Std Deviation 57.5 H RDW Coeff of Juan 15.0 H Plt Count 219 MPV 10.4 Immature Gran % (Auto) 0.200 Neut % (Auto) 59.5 Lymph % (Auto) 30.6 [place] % (Auto) 9.1 Eos % (Auto) 0.3 Baso % (Auto) 0.3 Absolute Neuts (auto) 3.7 Absolute Lymphs (auto) 1.88 Nucleated RBC % 0.3 Sodium 144 Potassium 3.7 Chloride 105 Carbon Dioxide 25.2 Anion Gap 14 BUN 30 H Creatinine 2.03 H Estim Creat Clear Calc 51.39 Est GFR (MDRD) Non-Af 40 L BUN/Creatinine Ratio 14.9 Glucose 97 Calcium 9.0 Total Bilirubin 4.32 H Direct Bilirubin 2.68 H AST 28 ALT 22 Alkaline Phosphatase 743 H Troponin T High Sens 45 H Troponin T Hi Sens 2 Hr 42 H Troponin T Hi Sens 4Hr 45 [place] [address] H Total Protein 6.8 Albumin 3.6 Globulin 3.2 Lipase 15 Radiography Diagnostic Testing: Clinical Impression(s) from Imaging Studies Chest X-Ray 01/04/25 08:25 IMPRESSION: Bibasilar atelectasis or pneumonia. [facility] Abdomen Ultrasound 01/04/25 11:03 IMPRESSION: 1. Ascites. 2. Fatty infiltration of the liver. Reading [facility] Rhythm Strip Rhythm Strip: Sinus bradycardia Rate: 55 Ectopy: None EKG Initial EKG: Attestation: I personally reviewed and interpreted this EKG as follows: Interpretation: Sinus Bradycardia Comments: Sinus bradycardia at a rate 85 beats per manage Right axis deviation LVH with repolarization abnormality Intraventricular conduction delay present T wave inversions in 3, aVF and V6 Prior EKG tracings: not available for review Management Discussion w/another healthcare provider: Hospitalist and Slitter Operator (Cardiology-felt that patient was fine to be diuresed admitted to medicine service) Discharge Plan Dx/Rx/DC Orders Clinical Impression: CKD stage 3b, GFR 30-44 ml/min, HFrEF (heart failure with reduced ejection fraction), Elevated bilirubin, Abdominal ascites Disposition Disposition: Acute Care [facility] Discharge Date/Time: 01/04/25 14:00 What to do if you have Problems For any increased pain, shortness of breath, bleeding, nausea or vomiting, chestpain, or any unexpected problems, contact your Primary Care Provider. Call [facility] ([phone]) or report to the closest Emergency Room. Call 911 if necessary. 01/04/25 1615 <Electronically signed by Deborah Penaloza DO> Cosigner Signature (if applicable): CC: No Primary Care Physician ~ Signed [facility] Work Phone: [phone] Discharge summary [facility] Medical Records Department [address] [place] [address] Emergency Department Summary 01/04/25 MR#: [id number] Acct: [id number] Name: CARLO MEDINA Rep #:[id number] : 1980 44 From: Deborah Ravi PCP: Care Physician,No Primary Status :ADM IN Location: [place] [address] HPI History of Present Illness Chief Complaint: Shortness of Breath Informant: patient and spouse/S.O. Narrative Narrative: Patient is a 44-year-old male with ported history of heart failure who states has been out of the hospital frequently over the past few months and states thathe is on Bumex andEliquis Eliquis presenting with worsening shortness of breath as well as swelling. He states he has had weight gain over the past 3 weeks with increased shortness of breath/dyspnea on exertion. Does report nonproductive cough. States he is not sleeping well at night. Denies any chestpain. States he is now having swelling in his stomach and because of this he has not had much appetite since yesterday. This prompted him to come to the emergency room. He is also having increased swelling of his legs. He states henormallyreceives his care through [facility] [place] because of his insurance but has had a hard time following up and getting to appointments because of transportation andthe distance. States he has been compliant with his medications. Is in the process of trying to establish down here in [place]. Denies any chest pain. Denies any fever or chills. Denies any change in urination. Patient does notknow what triggered his fluid overload. Note from inpatient encounter at [facility] on 10/26/2024 she is at patient has history of heartfailure with reduced ejection fraction, cardiogenic shock and healthcare associated pneumonia as well as DVT. He has CKD stage IIIb as well as cirrhosis. There is a reported history of left bundle branch block, hasissue with compliance of therapy and at that time wanted to be discharged home . Reported ejection fraction 15%. [facility] Medical History (Updated 01/04/25 @ 16:[address] Deborah Penaloza DO) Kidney disease Non-smoker Irregular heart beat DVT (deep venous thrombosis) CKD (chronic kidney disease) Cardiomyopathy Left bundle branch block Noncompliance Pulmonary embolism CHF (congestive heart failure) Home Medications ?Medication ?Instructions ?Recorded ?Last Taken ?Type apixaban 5 mg tablet (Eliquis) 5 mg PO BID 01/04/25 Un known History bumetanide 1 mg tablet 1 mg PO BID 01/04/25 Unknown History isosorbide dinitrate 20 mg tablet 20 mg PO Q8H 5 Unknown History Allergy/AdvReac Type Severity Reaction Status Date / Time No Known Allergies Allergy Verified 01/04/25 07:32 Family History (Updated 01/04/25 @ 13:[address] Anshul Lemus DO) Father Heart disease Brother Heart disease Social History (Updated 01/04/25 @ 13:[address] Anshul Lemus DO) Smoking Status: Never smoker alcohol intake: never substance use type: does not use ROS ROS ED Constitutional Constitutional ED: Denies chills or fever(s) Eyes Eyes: Denies change in vision Cardiovascular Cardiovascular: Denies chest pain or palpitations Respiratory/Chest Respiratory/Chest: Reports cough, dyspnea and dyspnea on exertion; Denies sputum Gastrointestinal Gastrointestinal: Reports diarrhea and other; Denies abdominal pain, melena, nausea or vomiting Musculoskeletal Musculoskeletal: Denies arthralgias or myalgias Integumentary Denies rash Neurologic Neurologic: Reports weakness Hematologic/Lymphatic Hematologic/Lymphatic: Reports easy bleeding and easy bruising EXAM Physical Exam Const Vital Signs: 01/04/25 07:28 01/04/25 07:52 01/04/25 08:26 Temperature 97.0 F L Temperature Source Temporal Pulse Rate 56 L 56 L Respiratory Rate 20 H 18 Respiratory Effort Normal Non-Labored Respiratory Depth Normal Respiratory Pattern Normal Blood Pressure 128/95 H Blood Pressure Mean 106 Pulse Ox 95 100 Oxygen Delivery Method Room Air Room Air Room Air Oxygen Flow Rate (L/min) 01/04/25 09:00 01/04/25 10:23 01/04/25 11:06 Temperature Temperature Source Pulse Rate 51 L 51 L 56 L Respiratory Rate 24 H 19 H 18 Respiratory Effort Respiratory Depth Respiratory Pattern Blood Pressure 123/109 H 121/96 H Blood Pressure Mean 113 104 Pulse Ox 95 98 96 Oxygen Delivery Method Room Air Nasal Cannula Nasal Cannula Oxygen Flow Rate (L/min) 2 2 01/04/25 12:00 01/04/25 13:00 Temperature Temperature Source Pulse Rate 55 L 54 L Respiratory Rate 19 H 28 H Respiratory Effort Respiratory Depth Respiratory Pattern Blood Pressure 121/71 H Blood Pressure Mean 87 Pulse Ox 99 Oxygen Delivery Method Nasal Cannula Oxygen Flow Rate (L/min) 2 Positive well nourished and well developed General Appearance ED: well developed and NAD HEENT Reports moist mucous membranes Eyes PERRL Neck supple Neck Narrative: Significant JVD present. Chest Wall inspection of chest normal and palpation of chest normal Resp Resp Narrative: Mild tachypnea. Crackles at the bases, more pronounced at the right lung base Cardio Cardio Narrative: Clicking diastolic murmur present Rate: bradycardia GI GI Narrative: Nontender abdomen. Abdominal distention with mild fluid wave present. Extremity Extremity Narrative: Pitting edema up to the mid thighs, 3+ Neuro oriented x3 Sensorium / Orientation: alert Motor Exam: general weakness Psych mental status grossly normal Skin no rashes or lesions noted and no wounds MDM MDM MDM Narrative Medical decision making narrative: Patient evaluated for worsening shortness of breath, swelling and abdominal distention. On exam patient was tachypneic and appears significantly fluid overloaded. Discharge summary from [facility] on 10/17 through 10/26 reviewed. Patient was admitted for acuteon chronic heart failure with reduced ejection fraction, acute DVT of the lower extremity and acuteon chronic CKD. He also had questionable pneumonia of the right lower lobe. Shows that he also has cirrhosis, mild transaminitis, mild elevation of his both direct and total bili movement and elevated creatinine. At that time patient presented for pneumonia but then there was concern that he went to cardiogenic shock was admitted to [facility]. There he refused IV therapies and base of intervention such as [place] or right heart catheterization. Lab work shows elevation of his creatinine of 2.03 with mild elevation of his BUN of 30. His creatinine baseline appears to be 2.0 per [facility] [place] documentation. He has elevation of his bilirubin but this is down from when he was in the hospital last. Bedside ultrasound performed by myself of the abdomendoes show quite Siska with ascites. Given his significant elevation of his alkaline phosphatase and bilirubin did obtain ultrasound however this only showed ascites. He has high since he troponins are elevated but stable and I do not think this is an NSTEMI. BNP significantly elevated at 25,000. Given the patient's significant cardiac history, murmur which patient is unaware of havinghowever patient does seem to be a poor historian, and worsening ascites I do think he would benefit [facility]. I did speak with Dr. Almaraz about the patient's case who states that it sounds like he would be fine to follow-up outpatient with cardiology and be admitted to the medicine service for diuresis. Case discussed with Dr. Lemus for admission. After discussion with Dr. Lemus states that he would prefer to order diuresis. Lab Data Attestation: I reviewed the patient's lab results. Labs: Laboratory Results - last 24 hr 01/04/25 01/04/25 01/04/25 09:34 11:20 13:36 WBC 6.2 RBC 3.90 L Hgb 12.9 L Hct 40.6 MCV 104.1 H MCH 33.1 H MCHC 31.8 L RDW Std Deviation 57.5 H RDW Coeff of Juan 15.0 H Plt Count 219 MPV 10.4 Immature Gran % (Auto) 0.200 Neut % (Auto) 59.5 Lymph % (Auto) 30.6 [place] % (Auto) 9.1 Eos % (Auto) 0.3 Baso % (Auto) 0.3 Absolute Neuts (auto) 3.7 Absolute Lymphs (auto) 1.88 Nucleated RBC % 0.3 Sodium 144 Potassium 3.7 Chloride 105 Carbon Dioxide 25.2 Anion Gap 14 BUN 30 H Creatinine 2.03 H Estim Creat Clear Calc 51.39 Est GFR (MDRD) Non-Af 40 L BUN/Creatinine Ratio 14.9 Glucose 97 Calcium 9.0 Total Bilirubin 4.32 H Direct Bilirubin 2.68 H AST 28 ALT 22 Alkaline Phosphatase 743 H Troponin T High Sens 45 H Troponin T Hi Sens 2 Hr 42 H Troponin T Hi Sens 4Hr 45 [place] [address] H Total Protein 6.8 Albumin 3.6 Globulin 3.2 Lipase 15 Radiography Diagnostic Testing: Clinical Impression(s) from Imaging Studies Chest X-Ray 01/04/25 08:25 IMPRESSION: Bibasilar atelectasis or pneumonia. Reading Location: [facility] Abdomen Ultrasound 01/04/25 11:03 IMPRESSION: 1. Ascites. 2. Fatty infiltration of the liver. Reading Location: [facility] Rhythm Strip Rhythm Strip: Sinus bradycardia Rate: 55 Ectopy: None EKG Initial EKG: Attestation: I personally reviewed and interpreted this EKG as follows: Interpretation: Sinus Bradycardia Comments: Sinus bradycardia at a rate 85 beats per manage Right axis deviation LVH with repolarization abnormality Intraventricular conduction delay present T wave inversions in 3, aVF and V6 Prior EKG tracings: not available for review Management Discussion w/another healthcare provider: Hospitalist and Slitter Operator (Cardiology-felt that patient was fine to be diuresed admitted to medicine service) Discharge Plan Dx/Rx/DC Orders Clinical Impression: CKD stage 3b, GFR 30-44 ml/min, HFrEF (heart failure with reduced ejection fraction), Elevated bilirubin, Abdominal ascites Disposition Disposition: Acute Care [facility] Discharge Date/Time: 01/04/25 14:00 What to do if you have Problems For any increased pain, shortness of breath, bleeding, nausea or vomiting, chestpain, or any unexpected problems, contact your Primary Care Provider. Call [facility] ([phone]) or report tothe closest Emergency Room. Call 911 if necessary. 01/04/25 1615 Cosigner Signature (if applicable): CC: No Primary Care Physician ~ Signed [facility]07-08-2025 History and physical note Author Anshul Lemus [facility] Note Date/Time January 04, 2025 2:06p m [facility] Medical Records Department [address] [place] [address] H&P Exam - Hospitalist 01/04/25 1351 MR#: [id number] Acct: [id number] Name: CARLO MEDINA Rep #:[id number] : 1980 44 From: Anshul Lemus DO PCP: Care Physician,No Primary Status :ADM IN Location: [address] HPI - General General Date of Service: 01/04/25 Chief Complaint: Shortness of breath. Edema. HPI Narrative CARLO MEDINA, is a 44 M who presents with progressive shortness of breath and edema. Patient is a 44-year-old male with a history of nonischemic cardiomyopathy with an ejection fraction of 20%. States that he had a left heart catheterization that showed no obstructive coronary disease. They have attempted right heart catheterization but was unsuccessful and the patient declined further attempts. Resents with increased weight gain of about 10 pounds with period time. Has had numerous hospitalizations over at [facility] and recently was over at [facility] [place] in September. It is documented throughout his charts at [facility] [place] as well as [facility] that he has a history of noncompliance. Patient at home has been taking the amantadine as well as apixaban and isosorbide. Patient has not been put on LUCRECIA inhibitors no angiotensin receptor blockers given chronic kidney disease. Because of his weight gain, shortness of breath, he presented to the ED. His BNP was 25,000, total bilirubin 4.32, direct bilirubin 2.68, creatinine 2.03. Chest x-ray showssome mild pulmonary vascular congestion but also cardiomegaly. The hospital service was contacted for admission. I did discuss with the patient if he wants to have a defibrillator that he should really be transferred elsewhere. I discussed with him at length about the indication a defibrillator because he is at higher risk of lethal cardiac arrhythmia, such as ventricular fibrillation and that would defibrillate him outif he were to sustain that. He expressed needing more time to think by that even though this was brought up to him peers in June. He had expressed apprehension about his arm limited regards to his mobility. His girlfriend was present and states that this is the first time that she has heard any of this despite him being hospice numerous times at different facilities. He again insists that he does not want defibrillator however he wants to be full code. States that anything happens that they would address that he is in the hospital. I tried to impress upon him that the concern is not necessary but we can do in the hospital what he would when he goes home. He states that he still wants time to think about it. [facility] Medical History (Updated 01/04/25 @ 14:[address] Anshul Lemus DO) CKD (chronic kidney disease) Cardiomyopathy Left bundle branch block Noncompliance Pulmonary embolism CHF (congestive heart failure) Home Medications ?Medication ?Instructions ?Recorded ?Last Taken ?Type apixaban 5 mg tablet (Eliquis) 5 mg PO BID 01/04/25 Un known History bumetanide 1 mg tablet 1 mg PO BID 01/04/25 Unknown History isosorbide dinitrate 20 mg tablet 20 mg PO Q8H 5 Unknown History Allergy/AdvReac Type Severity Reaction Status Date / Time No Known Allergies Allergy Verified 01/04/25 07:32 Family History (Updated 01/04/25 @ 13:[address] Anshul Lemus DO) Father Heart disease Brother Heart disease Social History (Updated 01/04/25 @ 13:[address] Anshul Lemus DO) Smoking Status: Never smoker alcohol intake: never substance use type: does not use ROS ROS Narrative All review of systems were negative except as mentioned above in the history of present illness and the other review of systems. Vital Signs Vital Signs Vital Signs: 01/04/25 07:28 01/04/25 07:52 01/04/25 08:26 Temperature 36.1 C L Temperature Source Temporal Pulse Rate 56 L 56 L Respiratory Rate 20 H 18 Respiratory Effort Normal Non-Labored Respiratory Depth Normal Respiratory Pattern Normal Blood Pressure 128/95 H Blood Pressure Mean 106 Pulse Ox 95 100 Oxygen Delivery Method Room Air Room Air Room Air Oxygen Flow Rate (L/min) 01/04/25 09:00 01/04/25 10:23 01/04/25 11:06 Temperature Temperature Source Pulse Rate 51 L 51 L 56 L Respiratory Rate 24 H 19 H 18 Respiratory Effort Respiratory Depth Respiratory Pattern Blood Pressure 123/109 H 121/96 H Blood Pressure Mean 113 104 Pulse Ox 95 98 96 Oxygen Delivery Method Room Air Nasal Cannula Nasal Cannula Oxygen Flow Rate (L/min) 2 2 01/04/25 12:00 01/04/25 13:00 Temperature Temperature Source Pulse Rate 55 L 54 L Respiratory Rate 19 H 28 H Respiratory Effort Respiratory Depth Respiratory Pattern Blood Pressure 121/71 H Blood Pressure Mean 87 Pulse Ox 99 Oxygen Delivery Method Nasal Cannula Oxygen Flow Rate (L/min) 2 Weight Weight: 82.2 kg Body Mass Index (BMI) 23.9 Physical Exam Narrative POCUS: Indication is for heart failure. Did not do full cardiac valve as there is no phased-array probe on the ED ultrasound. But using a FAST exam, heart wasglobally weak with limited motion but this was due to the fast protocol not through a cardiac protocol. And patient had markedly dilated IVC with no compressibility with inspirations. Right sided kidney was evaluated and did notshow any hydronephrosis. Left kidney unable to be visualized. Did not cruciated ascites in the abdomen. Const alert and no apparent distress Constitutional Narrative: On nasal cannula. No respiratory distress. No conversational dyspnea. HEENT normocephalic and head/scalp atraumatic Neck Neck Narrative: Marked JVD. Resp normal respiratory effort, no retractions, no use of accessory muscles and clearto auscultation bilaterally Cardio regular rate, regular rhythm, S1 normal heart sound and S2 normal heart sound GI normal to inspection, nondistended, normoactive bowel sounds, soft to palpation,non-tender, non-distended and hepatosplenomegaly Extremity full ROM Extremity Narrative: Bilateral lower extremity edema. Neuro Sensorium / Orientation: awake, alert, oriented to person, oriented to place andoriented to time Psych affect normal Results Lab / Micro Data Attestation: I reviewed the patient's lab results. 01/04/25 09:34 01/04/25 09:34 Labs: Laboratory Results - last 24 hr 01/04/25 09:34: WBC 6.2, RBC 3.90 L, Hgb 12.9 L, Hct 40.6, MCV 104.1 H, MCH 33.1H, MCHC 31.8 L, RDW Std Deviation 57.5 H, RDW Coeff of Juan 15.0 H, Plt Count 219, MPV 10.4, Immature Gran % (Auto) 0.200, Neut % (Auto) 59.5, Lymph % (Auto) 30.6, [place] % (Auto) 9.1, Eos % (Auto) 0.3, Baso % (Auto) 0.3, Absolute Neuts (auto) 3.7, Absolute Lymphs (auto) 1.88, Nucleated RBC % 0.3, Sodium 144, Potassium 3.7, Chloride 105, Carbon Dioxide 25.2, Anion Gap 14, BUN 30 H, Creatinine 2.03 H, Estim Creat Clear Calc 51.39, Est GFR (MDRD) Non-Af 40 L, BUN/Creatinine Ratio 14.9, Glucose 97, Calcium 9.0, Total Bilirubin 4.32 H, Direct Bilirubin 2.68 H, AST 28, ALT 22, Alkaline Phosphatase 743 H, Troponin T High Sens 45 H, [place] [address] H, Total Protein 6.8, Albumin 3.6, Globulin 3.2, Lipase 15 01/04/25 11:20: Troponin T Hi Sens 2 Hr 42 H EKG Initial EKG: Attestation: I personally reviewed and interpreted this EKG as follows: EKG Rhythm Intrepretation: Sinus Bradycardia Imaging Radiology Impression Chest X-Ray 01/04/25 08:25 IMPRESSION: Bibasilar atelectasis or pneumonia. Reading Location: [facility] Abdomen Ultrasound 01/04/25 11:03 IMPRESSION: 1. Ascites. 2. Fatty infiltration of the liver. Reading Location: [facility] Assessment & Plan Assessment/Plan (1) HFrEF (heart failure with reduced ejection fraction): PLAN: Patient takes Bumex as outpatient. Did recommend initiating furosemide infusion. Patient Ress reservations about that because he did not want to be limited in regards to his mobility about being tied down to IV pump. He requested the boluses instead. I did explain to him that it would likely expedite more rapid removal but also being safer on the kidneys. Expressed understanding but prefers boluses instead. So we will utilize furosemide 40 mg IV every 8 hours for the time being. Holding off on LUCRECIA inhibitors and angiotensin receptor blockers given CKD. As well as Entresto. Will start empagliflozin however. Repeat echocardiogram as previous ejection fraction has been documented as 20%. Had very lengthy conversation with he and his girlfriend at bedside about the indication for defibrillator to help defibrillate in the event of cardiac arrestsuch as ventricular fibrillation which she is at high risk for. Continues to decline that though he wishes to be full code. Will fluid restrict. Check daily weights. Did discuss the case with Dr. Almaraz. He said he would be happy to follow-up with the patient as outpatient. No acute cardiac needs at this point time so wewill hold off on cardiology consultation at present. Patient states that he is had a left heart catheterization which has been normal. (2) Elevated bilirubin: PLAN: Suspect due to hepatic congestion due to his cardiomyopathy. (3) CKD stage 3b, GFR 30-44 ml/min: PLAN: Monitor closely while on diuretics. PLAN: Plan History of PE: Continue with apixaban History of noncompliance: [facility] Patient is steadfast in regards to doing only what he wants to do despite recommendations that may go against what he would want to do, such as furosemide as above. Expressed that he and his fianc?e that we will respect hisautonomy in regards to his decisions but did express to him over that it is important that he have education in regards to the risks of his decisions so that he has thorough understanding of potential outcomes. VTE prophylaxis: Not indicated as patient is already on apixaban CODE STATUS: Addressed with patient. Patient wishes to be full code. He understands that he is at higher risk for lethal cardiac arrhythmias, such as ventricular fibrillation, given his cardiomyopathy. Charges/Coding Visit Charges Inpatient E&M: 36044 Init Hosp L3 01/04/25 1406 <Electronically signed by Anshul Lemus DO> Cosigner Signature (if applicable): CC: Dr. Anshul Lemus, ; No Primary Care Physician~ Signed [facility] Work Phone: 1(533) 655-806307-08-2025 Evaluation note* Diagnosis Onset Date Resolution Status Admit Date CKD stage 3b, GFR 30-44 ml/min acute January 04, 2025 1:40pm Elevated bilirubin acute January 042024 1:40pm Heart block acute January 04 1:40pm HFrEF (heart failure with re duced ejection fraction) acute January 04 1:40pm Hypokalemia acute January 04 1:40pm [facility] Work Phone: [phone]) 372-437507-08-2025 History and physical note [facility] Medical Records Department [address] [place] [address] H&P Exam - Hospitalist 01/04/25 1351 MR#: [id number] Acct: [id number] Name: CARLO MEDINA Rep #:[id number] : 1980 44 From: Anshul Lemus DO PCP: Care Physician,No Primary Status :ADM IN Location: [facility] [id number] HPI - General General Date of Service: 01/04/25 Chief Complaint: Shortness of breath. Edema. HPI Narrative CARLO MEDINA, is a 44 M who presents with progressive shortness of breath and edema. Patient is [id number] male with a history of nonischemic cardiomyopathy with an ejection fraction of 20%. States that he had a left heart catheterization that showed no obstructive coronary disease. They have attempted right heart catheterization but was unsuccessful and the patient declined further attempts. Resents with increased weight gain of about 10 pounds with period time. Has had numerous hospitalizations over at [facility] and recently was over at [facility] in September. It is documented throughout his charts at [facility] [place] as well as [facility] that he has a history of noncompliance. Patient at home has been taking the amantadine as well as apixaban and isosorbide. Patient has not been puton LUCRECIA inhibitors no angiotensin receptor blockers given chronic kidney disease. Because of his weight gain, shortness of breath, he presented to the ED. His BNP was 25,000, total bilirubin 4.32, direct bilirubin 2.68, creatinine 2.03. Chest x-ray showssome mild pulmonary vascular congestion but also cardiomegaly. The hospital service was contacted for admission. I did discuss with the patient if he wants to have a defibrillator that he should really be transferred elsewhere. I discussed with him at length about the indication a defibrillator because he is athigher risk of lethal cardiac arrhythmia, such as ventricular fibrillation and that would defibrillate him outif he were to sustain that. He expressed needing more time to think by that even though this was brought up to him peers in June. He had expressed apprehension about his arm limited regards to his mobility. His girlfriend was present and states that this is the first time that she has heard any of this despite him being hospice numerous times at different facilities. He again insiststhat he does not want defibrillator however he wants to be full code. States that anything happens that they would address that he is in the hospital. I tried to impress upon him that the concern is not necessary but we can do in the hospital what he would when he goes home. He states that he stillwants time to think about it. [facility] Medical History (Updated 01/04/25 @ 14:[address] Anshul Lemus DO) CKD (chronic kidney disease) Cardiomyopathy Left bundle branch block Noncompliance Pulmonary embolism CHF (congestive heart failure) Home Medications ?Medication ?Instructions ?Recorded ?Last Taken ?Type apixaban 5 mg tablet (Eliquis) 5 mg PO BID 01/04/25 Un known History bumetanide 1 mg tablet 1 mg PO BID 01/04/25 Unknown History isosorbide dinitrate 20 mg tablet 20 mg PO Q8H 5 Unknown History Allergy/AdvReac Type Severity Reaction Status Date / Time No Known Allergies Allergy Verified 01/04/25 07:32 Family History (Updated 01/04/25 @ 13:[address] Anshul Lemus DO) Father Heart disease Brother Heart disease Social History (Updated 01/04/25 @ 13:[address] Anshul Lemus DO) Smoking Status: Never smoker alcohol intake: never substance use type: does not use ROS ROS Narrative All review of systems were negative except as mentioned above in the history of present illness andthe other review of systems. Vital Signs Vital Signs Vital Signs: 01/04/25 07:28 01/04/25 07:52 01/04/25 08:26 Temperature 36.1 C L Temperature Source Temporal Pulse Rate 56 L 56 L Respiratory Rate 20 H 18 Respiratory Effort Normal Non-Labored Respiratory Depth Normal Respiratory Pattern Normal Blood Pressure 128/95 H Blood Pressure Mean 106 Pulse Ox 95 100 Oxygen Delivery Method Room Air Room Air Room Air Oxygen Flow Rate (L/min) 01/04/25 09:00 01/04/25 10:23 01/04/25 11:06 Temperature Temperature Source Pulse Rate 51 L 51 L 56 L Respiratory Rate 24 H 19 H 18 Respiratory Effort Respiratory Depth Respiratory Pattern Blood Pressure 123/109 H 121/96 H Blood Pressure Mean 113 104 Pulse Ox 95 98 96 Oxygen Delivery Method Room Air Nasal Cannula Nasal Cannula Oxygen Flow Rate (L/min) 2 2 01/04/25 12:00 01/04/25 13:00 Temperature Temperature Source Pulse Rate 55 L 54 L Respiratory Rate 19 H 28 H Respiratory Effort Respiratory Depth Respiratory Pattern Blood Pressure 121/71 H Blood Pressure Mean 87 Pulse Ox 99 Oxygen Delivery Method Nasal Cannula Oxygen Flow Rate (L/min) 2 Weight Weight: 82.2 kg Body Mass Index (BMI) 23.9 Physical Exam Narrative POCUS: Indication is for heart failure. Did not do full cardiac valve as there is no phased-array probe on the ED ultrasound. But using a FAST exam, heart wasglobally weak with limited motion but this was due to the fast protocol not through a cardiac protocol. And patient had markedly dilated IVC with no compressibility with inspirations. Right sided kidney was evaluated and did notshow any hydronephrosis. Left kidney unable to be visualized. Did not cruciated ascites in the abdomen. Const alert and no apparent distress Constitutional Narrative: On nasal cannula. No respiratory distress. No conversational dyspnea. HEENT normocephalic and head/scalp atraumatic Neck Neck Narrative: Marked JVD. Resp normal respiratory effort, no retractions, no use of accessory muscles and clearto auscultation bilaterally Cardio regular rate, regular rhythm, S1 normal heart sound and S2 normal heart sound GI normal to inspection, nondistended, normoactive bowel sounds, soft to palpation,non-tender, non-distended and hepatosplenomegaly Extremity full ROM Extremity Narrative: Bilateral lower extremity edema. Neuro Sensorium / Orientation: awake, alert, oriented to person, oriented to place andoriented to time Psych affect normal Results Lab / Micro Data Attestation: I reviewed the patient's lab results. 01/04/25 09:34 01/04/25 09:34 Labs: Laboratory Results - last 24 hr 01/04/25 09:34: WBC 6.2, RBC 3.90 L, Hgb 12.9 L, Hct 40.6, MCV 104.1 H, MCH 33.1H, MCHC 31.8 L, RDWStd Deviation 57.5 H, RDW Coeff of Juan 15.0 H, Plt Count 219, MPV 10.4, Immature Gran % (Auto) 0.200, Neut % (Auto) 59.5, Lymph % (Auto) 30.6, [place] % (Auto) 9.1, Eos % (Auto) 0.3, Baso % (Auto) 0.3, Absolute Neuts (auto) 3.7, Absolute Lymphs (auto) 1.88, Nucleated RBC % 0.3, Sodium 144, Potassium 3.7, Chloride 105, Carbon Dioxide 25.2, Anion Gap 14, BUN 30 H, Creatinine 2.03 H, Estim Creat Clear Calc 51.39, Est GFR (MDRD) Non-Af 40 L, BUN/Creatinine Ratio 14.9, Glucose 97, Calcium 9.0, Total Bilirubin 4.32 H, Direct Bilirubin 2.68 H, AST 28, ALT 22, Alkaline Phosphatase 743 H, Troponin T HighSens 45 H, [place] [address] H, Total Protein 6.8, Albumin 3.6, Globulin 3.2, Lipase 15 01/04/25 11:20: Troponin T Hi Sens 2 Hr 42 H EKG Initial EKG: Attestation: I personally reviewed and interpreted this EKG as follows: EKG Rhythm Intrepretation: Sinus Bradycardia Imaging Radiology Impression Chest X-Ray 01/04/25 08:25 IMPRESSION: Bibasilar atelectasis or pneumonia. Reading Location: [facility] Abdomen Ultrasound 01/04/25 11:03 IMPRESSION: 1. Ascites. 2. Fatty infiltration of the liver. Reading Location: [facility] Assessment & Plan Assessment/Plan (1) HFrEF (heart failure with reduced ejection fraction): PLAN: Patient takes Bumex as outpatient. Did recommend initiating furosemide infusion. Patient Ressreservations about that because he did not want to be limited in regards to his mobility about being tied down to IV pump. He requested the boluses instead. I did explain to him that it would likely e xpedite more rapid removal but also being safer on the kidneys. Expressed understanding but prefersboluses instead. So we will utilize furosemide 40 mg IV every 8 hours for the time being. Holding off on LUCRECIA inhibitors and angiotensin receptor blockers given CKD. As well as Entresto. Will start empagliflozin however. Repeat echocardiogram as previous ejection fraction has been documented as 20%. Had very lengthy conversation with he and his girlfriend at bedside about the indication for defibrillator to help defibrillate in the event of cardiac arrestsuch as ventricular fibrillation which she is at high risk for. Continues to decline that though he wishes to be full code. Will fluid restrict. Check daily weights. Did discuss the case with Dr. Almaraz. He said he would be happy to follow-up with the patient as outpatient. No acute cardiac needs at this point time so wewill hold off on cardiology consultation at present. Patient states that he is had a left heart catheterization which has been normal. (2) Elevated bilirubin: PLAN: Suspect due to hepatic congestion due to his cardiomyopathy. (3) CKD stage 3b, GFR 30-44 ml/min: PLAN: Monitor closely while on diuretics. PLAN: Plan History of PE: Continue with apixaban History of noncompliance: Per previous documentation [facility] Patient is steadfast in regards to doing only what he wants to do despite recommendations that may go against what he would want to do, such as furosemide as above. Expressed that he and his fianc?e that we will respect hisautonomy in regards to his decisions but did express to him over that it is important that he have education in regards to the risks of his decisions so that he has thorough understanding of potential outcomes. VTE prophylaxis: Not indicated as patient is already on apixaban CODE STATUS: Addressed with patient. Patient wishes to be full code. He understands that he is at higher risk for lethal cardiac arrhythmias, such as ventricular fibrillation, given his cardiomyopathy. Charges/Coding Visit Charges Inpatient E&M: 00731 Init Hosp L3 01/04/25 1408 Cosigner Signature (if applicable): CC: Dr. Anshul Lemus DO; No Primary Care Physician~ Signed [facility]07-08-2025 Radiology Diagnostic study note [facility] Imaging Services [address] [place] [id number] Abdomen Limited MR#: [id number] Acct: [id number] Name: CARLO MEDINA Rep #: [id number] : 1980 M 44 From: Mallorie Ford MD PCP: Care Physician,No Primary Status: REG ER Study:Abdomen Limited Date of Exam: 02/21 Exam# [id number] Ordering Dr: Kelly Penaloza DO EXAM: US Abdomen Limited, Right Upper Quadrant CLINICAL INDICATION: ELEVATED LIVER ENZYMES AND BILI TECHNIQUE: Real-time ultrasound of the right upper quadrant with image documentation. COMPARISON: No relevant prior studies available. FINDINGS: LIVER: Liver measures up to 15.9 cm. Fatty infiltration of the liver. No intrahepatic bile duct dilation. GALLBLADDER: Negative Melendez's sign was reported by the [employer]. No gallstones. COMMON BILE DUCT: Unremarkable as visualized. No stones. No dilation. Commonbile duct measures 0.5 cm in diameter. PANCREAS: Unremarkable as visualized. RIGHT KIDNEY: Unremarkable. No stones. No hydronephrosis. The right kidney measures 9.4 x 5.7 x 3.6cm. INFERIOR VENA CAVA: Mildly dilated IVC measuring up to 3.3 cm diameter. FREE FLUID: Ascites. US/Abdomen Limited IMPRESSION: 1. Ascites. 2. Fatty infiltration of the liver. Reading Location: [facility] CC: Dr. Deborah Penaloza DO; No Primary Care Physician ~ Tire Mechanic: Signed [facility]07-08-2025 Radiology Diagnostic study note [facility] Imaging Services [address] [place] [address] Chest PA and Lateral MR#: [id number] Acct: [id number] Name: CARLO MEDINA Rep #: [id number] : 1980 M 44 From: Mallorie Ford MD PCP: Care Physician,No Primary Status: REG ER Study:Chest PA and Lateral Date of Exam: 01/04/25 Exam# [id number] Ordering Dr: Kelly Penaloza DO EXAM: XR Chest, 2 Views CLINICAL INDICATION: SOB TECHNIQUE: Frontal and lateral views of the chest. COMPARISON: No relevant prior studies available. FINDINGS: LUNGS AND PLEURAL SPACES: Bibasilar atelectasis or pneumonia. No pneumothorax. HEART: Unremarkable. No cardiomegaly. MEDIASTINUM: Unremarkable. Normal mediastinal contour. BONES/JOINTS: Unremarkable. No acute fracture. RAD/Chest PA and Lateral IMPRESSION: Bibasilar atelectasis or pneumonia. Reading [facility] CC: Dr. Deborah Penaloza DO; No Primary Care Physician ~ Tire Mechanic: Signed [facility]06-27-2025 Telephone encounter Note* Telephone Encounter - Jaden Milner - 12/24/2024 4:00 PM EDT Last visit with PCP (YUVAL GAYLE) was 09/17/2024 No future appointment with PCP (YUVAL GAYLE) Thank you. [id number] Miscellaneous Notes* Telephone Encounter - Jaden Milner - 12/24/2024 4:00 PM EDT Last visit with PCP (YUVAL GAYLE) was 09/17/2024 No future appointment with PCP (YUVAL GAYLE) Thank you. documented in this [id number] Telephone encounter Note* Telephone Encounter - Yuval Gayle MD - 12/13/2024 4:37 PM EDT Images from the original note were not included. Rx sent Please schedule follow-up Chart reviewed Most recent visit with pr was on 09/17/2024 There are no future appointments scheduled with Sigrid Vaughn [id number]. BMP (last 3 years, up to 8 values) 10/25/2024 10/21/2024 10/20/2024 10/18/2024 10/17/2024 10/06/2024 10/05/2024 10/02/2024 3:03 PM 10:01 AM 6:29 AM 1:39 PM 8:22 PM 4:56 AM 12:29 AM 6:37 PM Na 134 142 143 139 137 134 134 134 K 4.0 3.2 3.5 4.1 4.7 4.3 4.8 4.1 Cl 88 96 99 101 101 96 97 100 CO2 30 32 29 21 15 27 23 21 Gap 20 17 19 21 26 15 19 17 Glu 130 131 117 169 106 105 124 182 BUN 60 52 72 88 84 52 51 45 Cr 2.15 1.46 2.20 3.22 2.80 1.98 2.18 2.51 Ca 7.7 7.7 8.4 8.7 8.7 8.2 8.1 8.2 eGFR 38 60 36 23 27 41 37 31 LFT's (last 3 years, up to 8 values) 10/25/2024 10/21/2024 10/20/2024 10/18/2024 09/30/2024 09/09/2024 09/08/2024 09/06/2024 3:03 PM 10:01 AM 6:29 AM 1:39 PM 4:21 PM 4:01 AM 1:10 AM 8:42 PM T Prot 6.0 6.3 6.4 6.2 6.5 6.1 6.4 6.4 Albumin 3.1 3.1 3.3 3.3 3.8 3.6 3.7 3.7 D Bili 3.77 3.54 4.05 4.95 2.40 0.79 0.85 0.81 T Bili 7.3 6.4 7.9 8.8 5.7 2.2 2.2 2.4 Alk Phos 393 348 359 273 331 202 247 224 ALT 54 43 33 25 28 37 42 44 AST 48 60 50 31 19 24 27 25 Lab Results Component Value Date HBA1C 6.1 (H) 10/01/2024 CBC (last 3 years, up to 8 values) 10/25/2024 10/21/2024 10/20/2024 10/18/2024 10/17/2024 10/06/2024 10/05/2024 10/02/2024 3:03 PM 10:01 AM 6:29 AM 1:39 PM 8:22 PM 4:56 AM 12:29 AM 6:37 PM WBC 14.1 9.7 11.5 12.1 12.8 8.2 9.2 12.4 RBC 3.54 3.90 4.27 3.90 3.88 4.00 3.83 3.82 Hgb 12.3 13.8 14.9 13.3 13.6 13.8 13.3 13.2 Hct 36.8 40.8 44.2 40.1 40.2 40.8 39.7 39.1 MCV 104 105 104 103 104 102 104 102 RDW 16.9 17.0 17.2 16.4 16.3 15.1 15.2 14.5 Plt 226 162 142 135 153 206 195 212 [id number] Miscellaneous Notes* Telephone Encounter - Yuval Gayle MD - 12/13/2024 4:37 PM EDT Images from the original note were not included. Rx sent Please schedule follow-up Chart reviewed Most recent visit with me was on 09/17/2024 There are no future appointments scheduled with NEERAJ Loza. BMP (last 3 years, up to 8 values) 10/25/2024 10/21/2024 10/20/2024 10/18/2024 10/17/2024 10/06/2024 10/05/2024 10/02/2024 3:03 PM 10:01 AM 6:29 AM 1:39 PM 8:22 PM 4:56 AM 12:29 AM 6:37 PM Na 134 142 143 139 137 134 134 134 K 4.0 3.2 3.5 4.1 4.7 4.3 4.8 4.1 Cl 88 96 99 101 101 96 97 100 CO2 30 32 29 21 15 27 23 21 Gap 20 17 19 21 26 15 19 17 Glu 130 131 117 169 106 105 124 182 BUN 60 52 72 88 84 52 51 45 Cr 2.15 1.46 2.20 3.22 2.80 1.98 2.18 2.51 Ca 7.7 7.7 8.4 8.7 8.7 8.2 8.1 8.2 eGFR 38 60 36 23 27 41 37 31 LFT's (last 3 years, up to 8 values) 10/25/2024 10/21/2024 10/20/2024 10/18/2024 09/30/2024 09/09/2024 09/08/2024 09/06/2024 3:03 PM 10:01 AM 6:29 AM 1:39 PM 4:21 PM 4:01 AM 1:10 AM 8:42 PM T Prot 6.0 6.3 6.4 6.2 6.5 6.1 6.4 6.4 Albumin 3.1 3.1 3.3 3.3 3.8 3.6 3.7 3.7 D Bili 3.77 3.54 4.05 4.95 2.40 0.79 0.85 0.81 T Bili 7.3 6.4 7.9 8.8 5.7 2.2 2.2 2.4 Alk Phos 393 348 359 273 331 202 247 224 ALT 54 43 33 25 28 37 42 44 AST 48 60 50 31 19 24 27 25 Lab Results Component Value Date HBA1C 6.1 (H) 10/01/2024 CBC (last 3 years, up to 8 values) 10/25/2024 10/21/2024 10/20/2024 10/18/2024 10/17/2024 10/06/2024 10/05/2024 10/02/2024 3:03 PM 10:01 AM 6:29 AM 1:39 PM 8:22 PM 4:56 AM 12:29 AM 6:37 PM WBC 14.1 9.7 11.5 12.1 12.8 8.2 9.2 12.4 RBC 3.54 3.90 4.27 3.90 3.88 4.00 3.83 3.82 Hgb 12.3 13.8 14.9 13.3 13.6 13.8 13.3 13.2 Hct 36.8 40.8 44.2 40.1 40.2 40.8 39.7 39.1 MCV 104 105 104 103 104 102 104 102 RDW 16.9 17.0 17.2 16.4 16.3 15.1 15.2 14.5 Plt 226 162 142 135 153 206 195 212 * Telephone Encounter - Cornelia Dash RPh - 12/13/2024 1:20 PM EDT Requested Prescriptions Pending Prescriptions Disp Refills Apixaban (ELIQUIS) 5 MG tablet 28 Tablet 0 Sig: Take 1 Tablet by mouth 2 times daily. Last visit with PCP (YUVAL GAYLE) was 09/17/2024 No future appointment with PCP (YUVAL GAYLE) documented in this [id number] Telephone encounter Note* Telephone Encounter - Cornelia Dash RPh - 12/13/2024 1:20 PM EDT Requested Prescriptions Pending Prescriptions Disp Refills Apixaban (ELIQUIS) 5 MG tablet 28 Tablet 0 Sig: Take 1 Tablet by mouth 2 times daily. Last visit with PCP (YUVAL GAYLE) was 09/17/2024 No future appointment with PCP (YUVAL GAYLE) [id number] Telephone encounter Note* Telephone Encounter - Eva Isaacs MA - 12/06/2024 8:47 AM EDT No response letter printed and mailed to patient [id number] Miscellaneous Notes* Telephone Encounter - Eva Isaacs MA - 12/06/2024 8:47 AM EDT No response letter printed and mailed to patient * Telephone Encounter - Eva Isaacs MA - 12/02/2024 2:43 PM EDT Attempted to contact patient. Left voicemail message on listed contact # to call [employer] [phone]. Asked patient to reference #[phone] when calling back to our office. Ok to relay message below. Please assist patient in scheduling appointment when he returns call. * Telephone Encounter - Eva Isaacs MA - 11/29/2024 11:51 AM EDT Attempted to contact patient. Left voicemail message on listed contact # to call [employer] [phone]. Asked patient to reference #99 when calling back to our office. Ok to relay message below. Please assist patient in scheduling appointment, * Telephone Encounter - Jovana Patel - 11/26/2024 11:01 AM EDT Patient's significant other called in checking on the refill request for Apixaban (ELIQUIS) 5 MG tablet. [facility] gave the patient a 3-day emergency supply because he is completely out of medication. Please contact the patient/pharmacy to discuss this issue as well as a plan of action. * Telephone Encounter - Leatha Batista PharmD - 11/23/2024 9:20 AM EDT This patient is requesting a refill on a medication that was prescribed in an ED, Urgent Care or during a Hospital Discharge. Please approve if appropriate or contact patient if not appropriate. Pharmacy was unable to determine appropriateness or if continued therapy necessary. documented in this [id number] Telephone encounter Note* Telephone Encounter - Eva Isaacs MA - 12/02/2024 2:43 PM EDT Attempted to contact patient. Left voicemail message on listed contact # to call [employer] [phone]. Asked patient to reference #99 when calling back to our office. Ok to relay message below. Please assist patient in scheduling appointment when he returns call. [id number] Miscellaneous Notes* Telephone Encounter - Eva Isaacs MA - 12/02/2024 2:43 PM EDT Attempted to contact patient. Left voicemail message on listed contact # to call [employer] [phone]. Asked patient to reference #99 when calling back to our office. Ok to relay message below. Please assist patient in scheduling appointment when he returns call. * Telephone Encounter - Eva Isaacs MA - 11/29/2024 11:51 AM EDT Attempted to contact patient. Left voicemail message on listed contact # to call [employer] [phone]. Asked patient to reference #99 when calling back to our office. Ok to relay message below. Please assist patient in scheduling appointment, * Telephone Encounter - Jovana Patel - 11/26/2024 11:01 AM EDT Patient's significant other called in checking on the refill request for Apixaban (ELIQUIS) 5 MG tablet. [facility] gave [facility] patient a 3-day emergency supply because he is completely out of medication. Please contact the patient/pharmacy to discuss this issue as well as a plan of action. * Telephone Encounter - LesterLeatha PharmD - 11/23/2024 9:20 AM EDT This patient is requesting a refill on a medication that was prescribed in an ED, Urgent Care or during a Hospital Discharge. Please approve if appropriate or contact patient if not appropriate. Pharmacy was unable to determine appropriateness or if continued therapy necessary. documented in this [id number] Telephone encounter Note* Telephone Encounter - Eva Isaacs MA - 11/29/2024 11:51 AM EDT Attempted to contact patient. Left voicemail message on listed contact # to call [facility] [phone]. Asked patient to reference #[phone] when calling back to our office. Ok to relay message below. Please assist patient in scheduling appointment, [id number] Miscellaneous Notes* Telephone Encounter - Eva Isaacs MA - 11/29/2024 11:51 AM EDT Attempted to contact patient. Left voicemail message on listed contact # to call [facility] [phone]. Asked patient to reference #99 when calling back to our office. Ok to relay message below. Please assist patient in scheduling appointment, * Telephone Encounter - Jovana Patel - 11/26/2024 11:01 AM EDT Patient's significant other called in checking on the refill request for Apixaban (ELIQUIS) 5 MG tablet. [facility] gave [facility] patient a 3-day emergency supply because he is completely out of medication. Please contact the patient/pharmacy to discuss this issue as well as a plan of action. * Telephone Encounter - Leatha Batista PharmD - 11/23/2024 9:20 AM EDT This patient is requesting a refill on a medication that was prescribed in an ED, Urgent Care or during a Hospital Discharge. Please approve if appropriate or contact patient if not appropriate. Pharmacy was unable to determine appropriateness or if continued therapy necessary. documented in this [id number] Telephone encounter Note* Telephone Encounter - Jovana Patel - 11/26/2024 11:01 AM EDT Patient's significant other called in checking on the refill request for Apixaban (ELIQUIS) 5 MG tablet. [facility] gave [facility] patient a 3-day emergency supply because he is completely out of medication. Please contact the patient/pharmacy to discuss this issue as well as a plan of action. [id number] Miscellaneous Notes* Telephone Encounter - Jovana Patel - 11/26/2024 11:01 AM EDT Patient's significant other called in checking on the refill request for Apixaban (ELIQUIS) 5 MG tablet. [facility] patient a 3-day emergency supply because he is completely out of medication. Please contact the patient/pharmacy to discuss this issue as well as a plan of action. * Telephone Encounter - Leatha Batista PharmD - 11/23/2024 9:20 AM EDT This patient is requesting a refill on a medication that was prescribed in an ED, Urgent Care or during a Hospital Discharge. Please approve if appropriate or contact patient if not appropriate. Pharmacy was unable to determine appropriateness or if continued therapy necessary. documented in this [id number] Telephone encounter Note* Telephone Encounter - Leatha Batista PharmD - 11/23/2024 9:20 AM EDT This patient is requesting a refill on a medication that was prescribed in an ED, Urgent Care or during a Hospital Discharge. Please approve if appropriate or contact patient if not appropriate. Pharmacy was unable to determine appropriateness or if continued therapy necessary. [facility] [place] Work Phone: 1(219) 648-921704-30-2025 Telephone encounter Note* Telephone Encounter - Radha Flores RN - 10/27/2024 11:03 AM EDT Transitional Care Management Contact Initial communication post-discharge: 1st attempt: 10/27/24, 11:03 AM -Left message 2nd attempt: 10/29/24, 10:52 AM -Left message 3rd attempt: 11/01/24, 8:56 AM-Left message Letter mailed: 11/01/24 Patient no longer meet Hardening Machine Operator Coordination services due to one or more of the following: [] Well connected to medical home and/or other services [] Identified Needs/Goals have been met [x] Unable to contact patient (at least 3 documented attempts) [] Is not adherent to Care Plan or Goals [] Declined Services [] Rolled off insurance plan or no longer MH patient [] Living situation changed; ie. SNF, Custodial, Hospice [] PCP recommends deferral [] Patient transferred to Survey Data Technician or Community Health Nurse [] No readmissions 30 days post discharge. [] DESEAN Bee, dance artistChaplain [phone] [id number] Miscellaneous Notes* Telephone Encounter - Radha Flores RN - 10/27/2024 11:03 AM EDT Transitional Care Management Contact Initial communication post-discharge: 1st attempt: 10/27/24, 11:03 AM -Left message 2nd attempt: 10/29/24, 10:52 AM -Left message 3rd attempt: 11/01/24, 8:56 AM-Left message Letter mailed: 11/01/24 Patient no longer meet Hardening Machine Operator Coordination services due to one or more of the following: [] Well connected to medical home and/or other services [] Identified Needs/Goals have been met [x] Unable to contact patient (at least 3 documented attempts) [] Is not adherent to Care Plan or Goals [] Declined Services [] Rolled off insurance plan or no longer MH patient [] Living situation changed; ie. SNF, Custodial, Hospice [] PCP recommends deferral [] Patient transferred to Survey Data Technician or Community Health Nurse [] No readmissions 30 days post discharge. [] DESEAN Bee, dance artistChaplain [phone] documented in this [id number] History of Present illness Narrative* Giselle Pierre RN - 10/26/2024 3:12 PM EDT Discharge instructions reviewed with patient and significant other at bedside. This RN stressed importance of medication compliance and adherence to medication regimen. Significant other verbalized understanding, pt silent but nodded head. * Selena Feliz LSW - 10/26/2024 10:22 AM EDT SOCIAL WORK Per interdisciplinary rounds, pt is medically cleared for discharge on this date. PT cleared pt for home. Plan is for pt to discharge home this date, pt continues to refuse medical care/medications. Selena Feliz ADVANCED DEVELOPER, GLIDING PILOT INSTRUCTOR Inpatient Community Health Nurse * Giselle Pierre RN - 10/26/2024 9:01 AM EDT Pt currently refusing all due medications d/t c/o feeling nauseated. This RN offered reaching out to provider for antiemetic. Pt declines. Pt instructed to let this RN know when he feels ready to take PO medications, pt agrees. Will follow up. * Soraida Foss LPN - 10/25/2024 8:03 PM EDT Patient called stating IV was causing him pain. IV was assessed no obvious obstruction or infiltrates. Patient given education on the risk of having no IV access. Patient still requesting IV removal.Removed at 1999. * Ramos Pope MD - 10/25/2024 5:06 PM EDT Emergency Department/Inpatient/Observation Split/Shared Documentation 10/25/24 Addendum to Note by ISAAC (see note from same day) I approve the management plan for this patient and take responsibility for the plan as documented. 44 M admitted for AeHFrEF, cardiogenic shock and HAP Patient has had issues with compliance to therapy, labs and meds Agreeable to initiate GDMT, on Bumex, declines BB, will assess of SGLT can be started Will need OP f/u HF cardiology, does not follow with , lives near [facility] Problems as of 10/25/2024 Acute deep vein thrombosis (DVT) of lower extremity (HCC) Acute kidney injury superimposed on stage 3b chronic kidney disease Pneumonia of right lower lobe due to infectious organism Acute on chronic HFrEF (heart failure with reduced ejection fraction) (HCC) Cirrhosis (HCC) Hypomagnesemia Hypokalemia RESOLVED: Cardiogenic shock (HCC) Ramos Pope MD, [facility] Medicine Physician Aircraft Design Engineerpeople manager * Anshul Laird APRN-WHITING MACHINE OPERATOR - 10/25/2024 1:16 PM EDT Hospital Medicine Progress Note Carlo Medina Age [age] year old male [id number] Admitted 10/17/2024 6:40 PM Hospital Day: 9 Subjective HOSPITAL COURSE: Carlo Medina is a 44 year old male with a PMH of HFrEF (15%), LBBB, HTN, HLD, hx of DVT, CKD3, cirrhosis. Presented to the ED for a cough since his previous hospital stay 09/30-10/06 which he was treated for a CAP with Augmentin/doxycycline. IN the ED lactate elevated at 5.3, NT proBNP over 60,000, admitted to the CICU for management of cardiogenic shock, SCHUYLER and treatment of HAP given CXR with worsening RLL PNA. Course difficult given patient declining care including blood work, medications, GOC discussion started in the CICU. Transferred out to [facility] in stable condition. Patient completed abxcourse 10/23. Course complicated by patient continued intermittent refusal of medications. 10/25 Attempting lab work on the patient and is agreeable to take his medications today. If stable lab work, will start SLGT2 inhibitor. Nursing staff and nursing aid attempted blood work with no success. Pending IV team to get labs. INTERVAL HPI: Was seen at bedside with continued issues of a cough. Discussed finished antibiotics for PNA. Discussed importance of getting lab work and taking medications. He voices understanding of his heart condition and why he should be taking the medications but chooses to not take them. Discussed if he continues to refuse medications, and lab interventions today, he will be discharged home tomorrow. States he needs PT/OT to re-eval due to feeling week. Voices no lightheadedness, dizziness, worsening shortness of breath, chest pain, nausea, vomiting, or diarrhea. Objective PHYSICAL EXAM: BP 100/83 (BP Location: right arm) Pulse 101 Temp 98.2 F (36.8 C) (Oral) Resp 18 Ht 6' 1 (1.854 m) Wt 149 lb 9.6 oz (67.9 kg) SpO2 100% BMI 19.74 kg/m GEN: No acute distress, alert and cooperative HEENT: NCNT. Sclera Exteirs Neck: Soft, full ROM. Elevated JVP CV: Normal S1S2, RRR, no murmurs, clicks or gallops Lungs: Crackles in bilateral bases with stable respiratory effort and on Room air. GI: Soft, NTND abdomen with active bowel sounds Skin: Intact, no active rash or lesions M/S: Full ROM, strength 5/5,+1 edema in BLE, and pulses palpable Back: Normal ROM with no tenderness Neuro: Oriented x3, follows commands, and has no focal deficits DATA No new data 2/2 patient refusing labs. Is agreeable to have IV team attempt them today after geting Order for tomorrow: cbc, bmp, mag Assessment & Plan Pneumonia of right lower lobe due to infectious organism No leukocytosis, afebrile, stable on room air, procal elevated to 16.8 on admission Given recent hospitalization, treating for HAP - completed course of linezolid and cipro today 10/24 Acute on chronic HFrEF (heart failure with reduced ejection fraction) (HCC) Echo with LVEF 15% - Bumex 1 mg daily - patient willing to take today - isordil 20 mg tid - patient willing to take today - patient declining further medication titration such as beta jerome due to erectile dysfunction .Will see what labs show and if stable, will start SLGT2 inhibitor - monitor on tele if agreeable - follow up with heart failure as an outpatient - continue GOC discussions Acute kidney injury superimposed on stage 3b chronic kidney disease Max creatinine this stay 3.2, down trending to 1.46 which appears to be better than baseline - avoid nephrotoxic agents - repeat bmp as patient will allow Cirrhosis (HCC) With hyperbili - liver clinic as an outpatient - [facility] when patient willing Hypomagnesemia Level 1.5 10/21 - only agreeable to mag oxide - repeat level in am Hypokalemia Level 3.2 10/21 - he declined potassium PO and IV - BMP as patient will allow Acute deep vein thrombosis (DVT) of lower extremity (HCC) - apixaban 5 mg po bid ADDENDUM 1651 -labs this afternoon showed WBC of 14.1, SCHUYLER with Cr of 2.15 with last Cr 4 days ago of 1.46. Likely SCHUYLER 2/2 hypervolemia 2/2 HFrEF 2/2 med non adherance. Switched PO Bumex 1 mg daily to Bumex 1 mg IV BID. Repeat labs in AM. CXR and UA for leukocytosis. DVT PPX: DOAC CODE: Full Code DISPO: home when if he allows GDMT optimization. Anshul Laird MSN, CURRICULUM DIRECTOR, AGACNP- Team 9- Hospital Medicine Pager # [phone] * Selena Feliz LSW - 10/25/2024 10:54 AM EDT SOCIAL WORK Per interdisciplinary rounds, pt is not medically cleared for discharge. NIR is 10/26/24. PT to work with pt for homegoing recommendations. Plan is anticipated for pt to discharge home, pending PT eval. SW will continue to follow. Selena Feliz ADVANCED DEVELOPER, GLIDING PILOT INSTRUCTOR Inpatient Community Health Nurse * Sara Tineo MD - 10/24/2024 12:04 PM EDT Images from the original note were not included. Hospital Medicine Progress Note Carlo Medina Age [age] year old male [id number] Admitted 10/17/2024 6:40 PM Hospital Day: 8 Subjective HOSPITAL COURSE: Carlo Medina is a 44 year old male with a PMH of HFrEF (15%), LBBB, HTN, HLD, hx of DVT, CKD3, cirrhosis. Presented to the ED for a cough since his previous hospital stay 09/30-10/06 which he was treated for a CAP with Augmentin/doxycycline. IN the ED lactate elevated at 5.3, NT proBNP over 60,000, admitted to the CICU for management of cardiogenic shock, SCHUYLER and treatment of HAP given CXR with worsening RLL PNA. Course difficult given patient declining care including blood work, medications, GOC discussion started in the CICU. Transferred out to [facility] in stable condition. Patient completed abxcourse 10/23. Course complicated by patient continued intermittent refusal of medications. INTERVAL HPI: Patient seen at bedside where he is reporting SOB and cough that continues. Requesting supplementalO2 despite good O2 saturations. Discussed again that given he will not let us give him diuretic or treat his HF, he is going to continue to have fluid build up in his lung and he will have SOB and cough. He is amenable to bumex this morning. Still not allowing blood draws or IV placement. Objective PHYSICAL EXAM: BP 105/73 (BP Location: right arm) Pulse 100 Temp 98.5 F (36.9 C) (Temporal) Resp 18 Ht 6' 1 (1.854 m) Wt 149 lb 9.6 oz (67.9 kg) SpO2 99% BMI 19.74 kg/m VS reviewed, nursing note reviewed. General: appears in no acute distress Eyes: no conjunctival injection, EOM intact ENMT: MMM Neck: supple, elevated JVP Respiratory: crackles in bilateral bases, respiratory effort wnl Cardiovascular: RRR, no m/r/g, distal pulses intact b/l Gastrointestinal: bowel sounds present x4, soft, nondistended, nontender, Ext: 1+ peripheral edema Skin: warm, dry Neuro: grinding room inspector grossly intact, no focal neurological deficits, A&Ox3 Psych: cooperative DATA No new data 2/2 patient unwillingness to get labs Order for tomorrow: cbc, bmp, mag Assessment & Plan Pneumonia of right lower lobe due to infectious organism No leukocytosis, afebrile, stable on room air, procal elevated to 16.8 on admission Given recent hospitalization, treating for HAP - complete course of linezolid and cipro today (d7/7) Acute on chronic HFrEF (heart failure with reduced ejection fraction) (HCC) Echo with LVEF 15% - Bumex 1 mg daily - patient willing to take today - isordil 20 mg tid - patient willing to take today - patient declining further medication titration - monitor on tele if agreeable - follow up with heart failure as an outpatient - continue GOC discussions, ?psych consult Acute kidney injury superimposed on stage 3b chronic kidney disease Max creatinine this stay 3.2, down trending to 1.46 which appears to be better than baseline - avoid nephrotoxic agents - repeat bmp as patient will allow Cirrhosis (HCC) With hyperbili - liver clinic as an outpatient - [facility] when patient willing Hypomagnesemia Level 1.5 4/24 - only agreeable to mag oxide - repeat level in am Hypokalemia Level 3.2 4/24 - he declined potassium PO and IV again today - BMP in am Acute deep vein thrombosis (DVT) of lower extremity (HCC) - apixaban 5 mg po bid DVT PPX: DOAC CODE: Full Code DISPO: home when completed abx or if he allows GDMT optimization Sara Tineo MD [facility] Medicine * Katie Christy LPN - 10/23/2024 7:54 PM EDT Patient reported feeling short of breath while lying in bed. Upon assessment, visible increased respiratory effort was noted. SpO2 was 98%, and crackles were heard upon auscultation. The patient alsoexhibited a cough and requested oxygen. A 0.5L nasal cannula was applied for comfort. The patient denied any chest pain. Notified Dr. Claude Waller (DO) regarding the patient's symptoms and interventions. Upon reassessment, the patient stated that they were feeling better and subsequently removed the nasal cannula. During a discussion about the patient's scheduled medications, the patient expressed continued refusal to take them. Provided education on the importance of medication adherence and the potential consequences of non-compliance. Dr. Waller has been notified again regarding the patient's refusal. * Shari Kimball RN - 10/23/2024 1:44 PM EDT Pt declined majority of AM meds, states that he is concerned we are overdosing him. This nurse reassured patient that medications are verified by the prescribing provider and pharmacist, and reiterated that he is not being overdosed. Pt seemed agreeable after explanation, but still declined full med ication regimen at this time stating he is too nauseous to take more than 3. This nurse suggested following up this afternoon to take isordil + bumex. Pt agreeable to follow up. IV access needed; pt states he will only allow a specialist because I am a hard stick. Pt declined this nurse from attempting and insisted on a specialist from [employer] or IV Team. Rapid Response paged; to bedside to attempt IV placement. Missed first attempt. Pt refused any further attempts at IV placement. MD Tineo notified. * Sara Tineo MD - 10/23/2024 8:32 AM EDT Images from the original note were not included. Hospital Medicine Progress Note Carlo Medina Age [age] year old male [id number] Admitted 10/17/2024 6:40 PM Hospital Day: 7 Subjective HOSPITAL COURSE: Carlo Medina is a 44 year old male with a PMH of HFrEF (15%), LBBB, HTN, HLD, hx of DVT, CKD3, cirrhosis. Presented to the ED for a cough since his previous hospital stay 09/30-10/06 which he was treated for a CAP with Augmentin/doxycycline. IN the ED lactate elevated at 5.3, NT proBNP over 60,000, admitted to the CICU for management of cardiogenic shock, SCHUYLER and treatment of HAP given CXR with worsening RLL PNA. Course difficult given patient declining care including blood work, medications, GOC discussion started in the CICU. Transferred out to [facility] in stable condition. Patient completed abxcourse 10/23. Course complicated by patient continued intermittent refusal of medications. INTERVAL HPI: Patient seen at bedside where he continues to endorse non-productive cough. Tells me that he does not want to leave the hospital until his cough has resolved. Discussed that post PNA cough can lingerand that he has another pathology that is likely causing him to cough (ie heart failure). Discussed importance of GDMT to help resolve his heart failure symptoms. Patient amenable to attempting IV placement and medications (bumex and isordil). Discussed with patient that if the treatment of his HAP is the only treatment he is willing to accept and it is completed today, he could be discharged. He then tells me he is willing to trial medications for his HF. Objective PHYSICAL EXAM: BP 100/80 (BP Location: right arm) Pulse 109 Temp 97.8 F (36.6 C) (Temporal) Resp 18 Ht 6' 1 (1.854 m) Wt 149 lb 9.6 oz (67.9 kg) SpO2 100% BMI 19.74 kg/m VS reviewed, nursing note reviewed. General: appears in no acute distress Eyes: no conjunctival injection, EOM intact ENMT: MMM Neck: supple. Elevated JVP. Respiratory: bibasilar crackles noted, respiratory effort wnl. Cough noted on deep inspiration. Cardiovascular: RRR, no m/r/g, distal pulses intact b/l Gastrointestinal: bowel sounds present x4, soft, nondistended, nontender Ext: 1+ peripheral edema Skin: warm, dry Neuro: grinding room inspector grossly intact, no focal neurological deficits, A&Ox3 Psych: cooperative though paranoid of new medications DATA Labwork: refusing lab work but amenable to attempt at IV and labs this afternoon. Order for tomorrow: cbc, bmp, mag Assessment & Plan Pneumonia of right lower lobe due to infectious organism No leukocytosis, afebrile, stable on room air, procal elevated to 16.8 on admission Given recent hospitalization, treating for HAP - complete course of linezolid and cipro today (d7/7) Acute on chronic HFrEF (heart failure with reduced ejection fraction) (HCC) Echo with LVEF 15% - Bumex 1 mg daily - patient willing to take today - isordil 20 mg tid - patient willing to take today - patient declining further medication titration - monitor on tele if agreeable - follow up with heart failure as an outpatient - continue GOC discussions, ?psych consult Acute kidney injury superimposed on stage 3b chronic kidney disease Max creatinine this stay 3.2, down trending to 1.46 which appears to be better than baseline - avoid nephrotoxic agents - repeat bmp as patient will allow Cirrhosis (HCC) With hyperbili - liver clinic as an outpatient - [facility] when patient willing Hypomagnesemia Level 1.5 10/21 - only agreeable to mag oxide - repeat level in am Hypokalemia Level 3.2 424 - he declined potassium PO and IV again today - BMP in am Acute deep vein thrombosis (DVT) of lower extremity (HCC) - apixaban 5 mg po bid DVT PPX: DOAC CODE: Full Code DISPO: home when medically cleared Sara Tineo MD Hospital Medicine * Katie Christy LPN - 10/22/2024 9:35 PM EDT Patient agreeable to taking Eliquis, Cipro, and Zyvox as scheduled tonight. Patient declined Bumex,stating, I don't need it. Patient educated on Bumex, including its purpose and potential effects of refusal; patient verbalized understanding. Patient agreeable to ongoing vital signs and telemetrymonitoring. Will continue to monitor patient status. 0125: Patient continuing to refuse blood work to be drawn. Physician notified. * Selena Feliz LSW - 10/22/2024 1:29 PM EDT SOCIAL WORK Per interdisciplinary rounds, pt is not medically cleared for discharge. NIR is 10/23/24. Plan is for pt to discharge home with no needs. SW will continue to follow. No weekend SW needs. Selena Feliz ADVANCED DEVELOPER, GLIDING PILOT INSTRUCTOR Inpatient Community Health Nurse * Sara Tineo MD - 10/22/2024 7:21 AM EDT Images from the original note were not included. Hospital Medicine Progress Note Carlo Medina Age [age] year old male [id number] Admitted 10/17/2024 6:40 PM Hospital Day: 6 Subjective HOSPITAL COURSE: Carlo Medina is a 44 year old male with a PMH of HFrEF (15%), LBBB, HTN, HLD, hx of DVT, CKD3, cirrhosis. Presented to the ED for a cough since his previous hospital stay 09/30-10/06 which he was treated for a CAP with Augmentin/doxycycline. IN the ED lactate elevated at 5.3, NT proBNP over 60,000, admitted to the CICU for management of cardiogenic shock, SCHUYLER and treatment of HAP given CXR with worsening RLL PNA. Course difficult given patient declining care including blood work, medications, GOC discussion started in the CICU. Transferred out to [facility] in stable condition INTERVAL HPI: Patient seen at bedside where he is resting comfortably. Discussed need for labs, after-load reduction and potassium repletion. He reports that his main goal is to get rid of his PNA and his cough. Discussed that his cough is likely a combination of infectious and fluid overload in the setting of his known HFrEF and declining of medications. On my interview, patient understands the risks and benefits of treatment and the adverse effects ofdeclining treatment for his heart failure but continues to choose to do so. Objective PHYSICAL EXAM: BP 90/69 (BP Location: right arm) Pulse 108 Temp 97.3 F (36.3 C) (Oral) Resp 16 Ht 6' 1 (1.854 m) Wt 149 lb 9.6 oz (67.9 kg) SpO2 98% BMI 19.74 kg/m VS reviewed, nursing note reviewed. General: appears in no acute distress Eyes: no conjunctival injection, EOM intact ENMT: MMM Neck: supple, elevated JVP Respiratory: Crackles at bases, respiratory effort wnl Cardiovascular: RRR, no m/r/g, distal pulses intact b/l Gastrointestinal: bowel sounds present x4, soft, nondistended, nontender Ext: 1+ peripheral edema Skin: warm, dry Neuro: grinding room inspector grossly intact, no focal neurological deficits, A&Ox3 DATA Labwork: none new 2/2 patient refusing lab draw. Order for tomorrow: cbc, bmp, mag Assessment & Plan Pneumonia of right lower lobe due to infectious organism No leukocytosis, afebrile, stable on room air, procal elevated to 16.8 on admission Given recent hospitalization, treating for HAP - continue linezolid and cipro (d6/7) Acute on chronic HFrEF (heart failure with reduced ejection fraction) (HCC) Echo with LVEF 15% - Bumex 1 mg daily - will restart today - isordil 20 mg tid - patient refusing - patient declining further medication titration - monitor on tele if agreeable - follow up with heart failure as an outpatient - continue GOC discussions Acute kidney injury superimposed on stage 3b chronic kidney disease Max creatinine this stay 3.2, down trending to 1.46 which appears to be better than baseline - avoid nephrotoxic agents - repeat bmp in am Cirrhosis (HCC) With hyperbili - liver clinic as an outpatient - [facility] when patient willing Hypomagnesemia Level 1.5 10/21 - only agreeable to mag oxide - repeat level in am Hypokalemia Level 3.2 10/21 - he declined potassium PO and IV again today - BMP in am Acute deep vein thrombosis (DVT) of lower extremity (HCC) - apixaban 5 mg po bid DVT PPX: DOAC CODE: Full Code DISPO: home pending medical clearance. Sara Tineo MD Hospital Medicine * Katie Christy LPN - 10/21/2024 10:53 PM EDT Patient refusing to take evening medications, educated patient on risks of not taking medication. Patient states he understands. Patient also with complaints of pain at IV site. Upon assessment, IV found to be leaking, and unable to be salvaged, so IV was removed. Patient refusing to have IV replaced unless done so by IV team.Patient also states he does not feel it is necessary since he is not taking any medications throughit. Educated on importance of having IV access while in hospital, patient states understanding and feels if he needs one can be placed then. Dr. Barraza notified. * Leatha Mckeon APRN-CNP - 10/21/2024 5:35 PM EDT Hospital Medicine Progress Note Carlo Medina Age [age] year old male [id number] Admitted 10/17/2024 6:40 PM Hospital Day: 5 Subjective HOSPITAL COURSE: Carlo Medina is a 44 year old male with a PMH of HFrEF (15%), LBBB, HTN, HLD, hx of DVT, CKD3, cirrhosis. Presented to the ED for a cough since his previous hospital stay 09/30-10/06 which he was treated for a CAP with Augmentin/doxycycline. IN the ED lactate elevated at 5.3, NT proBNP over 60,000, admitted to the CICU for management of cardiogenic shock, SCHUYLER and treatment of HAP given CXR with worsening RLL PNA. Course difficult given patient declining care including blood work, medications, GOC discussion started in the CICU. Transferred out to [facility] in stable condition INTERVAL HPI: In bed on [address], he was trying to nap and I disturbed him, but remained agreeable to examination Objective PHYSICAL EXAM: BP 95/64 (BP Location: left arm) Pulse 106 Temp 98.2 F (36.8 C) (Oral) Resp 19 Ht 6' 1 (1.854 m) Wt 149 lb 9.6 oz (67.9 kg) SpO2 100% BMI 19.74 kg/m Physical Exam HENT: Mouth/Throat: Mouth: Mucous membranes are moist. Eyes: Extraocular Movements: Extraocular movements intact. Pupils: Pupils are equal, round, and reactive to light. Cardiovascular: Rate and Rhythm: Normal rate and regular rhythm. Pulses: Normal pulses. Pulmonary: Effort: Pulmonary effort is normal. Breath sounds: Normal breath sounds. Abdominal: General: Bowel sounds are normal. Palpations: Abdomen is soft. Musculoskeletal: General: Normal range of motion. Cervical back: Normal range of motion and neck supple. Comments: Trace BLE edema Skin: General: Skin is warm. Capillary Refill: Capillary refill takes less than 2 seconds. Neurological: General: No focal deficit present. Mental Status: He is alert and oriented to person, place, and time. Psychiatric: Mood and Affect: Mood normal. DATA select: Labwork is notable for CBC with no leukocytosis, no acute anemia, mag low at 1.5, potassium3.2 - declined supplementation, creatinine showing improvement to 1.46, HFP - with hyperbili, elevated alk phos and AST levels Order for tomorrow: Labwork CBC, BMP, MAG Assessment & Plan Pneumonia of right lower lobe due to infectious organism No leukocytosis, afebrile, stable on room air, procal elevated to 16.8 Given recent hospitalization, treating for HAP - continue linezolid and cipro Cardiogenic shock (HCC) (Resolved: 10/21/2024) Managed in the cicu, at this time has resolved Acute on chronic HFrEF (heart failure with reduced ejection fraction) (HCC) Echo with LVEF 15% - Bumex 1 mg daily on hold - consider restarting in am - isordil 20 mg tid - patient declining further medication titration - monitor on tele if agreeable - follow up with heart failure as an outpatient - continue GOC discussion Acute kidney injury superimposed on stage 3b chronic kidney disease Max creatinine this stay 3.2, down trending to 1.46 which appears to be better than baseline - avoid nephrotoxic agents - repeat bmp in am Cirrhosis (HCC) With hyperbili - liver clinic as an outpatient - HFP in am Hypomagnesemia Level 1.5 this am - only agreeable to mag oxide - repeat level in am Hypokalemia Level 3.2 - he declined potassium PO and IV - BMP in am Acute deep vein thrombosis (DVT) of lower extremity (HCC) - apixaban 5 mg po bid DVT PPX: DOAC CODE: Full Code DISPO: to home when medically improved NEERAJ eRyez * Amber Murry RN - 10/21/2024 1:37 PM EDT Patients potassium is 3.2. RN attempted to administer ordered potassium replacement. Patient refused medication. Pt educated on risks of not taking medication with a low potassium. Dr. Myers notified. * Yee Cassidy LSW - 10/21/2024 11:31 AM EDT Per interdisciplinary rounds, [facility] conversation to take place with pt today. SW will follow for outcome of this meeting. JAMIE Ford LSW Inpatient Community Health Nurse * Jim Stockton MD - 10/21/2024 10:47 AM EDT Images from the original note were not included. [facility] CICU - Progress Note Carlo Medina Age [age] year old male ROOM: [place] [address] Admitted 10/17/2024 6:40 PM Hospital Day: 5 Hospital Course: Carlo Medina is a 44 year old male with a PMH of HFrEF (15%), LBBB, HTN, HLD, hx of DVT, CKD3, cirrhosis. Presented for cough present since past hospitalization in beginning of this month. Noticed red tinged sputum, which prompted ED visit. No sick conttacts. Was recently treated for CAP during 09/30-10/06 admission with augmentin/doxycycline. Has been refusing most labs, antibiotics, other therapies this admission. He does have SCHUYLER, elevated lactate, HAP, volume overload. Discussion ongoing regarding treatment that pt wishes to receive. SCHUYLER, lactic acidosis are improving on repeat labs with diuresis and treatment of HAP. HAP being treated with ciprofloxacin/linezolid. CICU team began discussion regarding pt's GOC/wishes today. Interval Update: Overnight Events: none overnight Vitals: Tachycardic, otherwise HDS on RA Telemetry Events: 24 Hour UOP: net negative 4L Labs: none Drips: none Subjective: Seen at bedside today. Appears improved. He is adamant about having a regular diet and does not want a salt restricted diet. No other complaints/concerns. Objective: Vitals: BP 95/80 (BP Location: left arm) Pulse 108 Temp 97.9 F (36.6 C) (Oral) Resp 19 Ht 6' 1 (1.854 m) Wt 149 lb 9.6 oz (67.9 kg) SpO2 99% BMI 19.74 kg/m Exam: General: NAD. HEENT: EOMI. Scleral icterus Heart: RRR. JVD on right Lungs: CTA b/l Abdomen: Soft. Extremities: improved LE edema, L>R. Neuro: A&Ox3 Skin: Warm & dry. Labs: BMP Mg CBC Recent Labs 10/20/24 0629 NA 143 CL 99 K 3.5 CO2 29 BUN 72* CR 2.20* GLU 117* CA 8.4* Recent Labs 10/20/24 0629 MG 2.1 Recent Labs 10/21/24 1001 WBC 9.7 HGB 13.8* HCT 40.8* PLT 162 Images: Chest x-ray was last done on 10/17/2024 Echocardiogram date: 10/01/2024 Assessment & Plan: Carlo Medina is a 44 year old male with PMH of HFrEF (15%), LBBB, HTN, HLD, hx of DVT, CKD3, cirrhosis. Admitted with concern for HAP and decompensated HFrEF. Neurologic - Cardiovascular #Cardiogenic shock #HFrEF (EF 15%) -Last echo 10/01 -Appears euvolemic and is on home meds -lactate has downtrended to 2.1--roughly baseline -GOC discussion initiated with pt today. Throughout this admission, pt has been refusing medications, diet recommendations, not wanting to talk about his cardiac health. Discussed the options moving forward. These include full GDMT and good outpatient follow up to avoid future admissions, Partial treatment with likely repeat admissions and oysterman decline, or taking an approach that would more align with comfort care. Giving pt time to think about his goals and options, will re assess later Plan -Afterload reduction with isodirl 20 mg TID--pt refusing -Hold bumex 1mg this afternoon -follow up labs, which he got this morning -so far does not want other meds. The above are his home meds. -Plan to consult palliative likely 10/22 pending results of today's team introduction to [facility]. -Strict I/Os -K > 4, Mg >2 Respiratory - Infectious Disease Sepsis due to pneumonia #Right Lower Lobe Pneumonia #Hospital Acquired Pneumonia Admission for CAP 09/30 CXR demonstrating worsening RLL PNA -respiratory cx normal Plan -continue linezolid for 7 days (End 10/25) -continue ciprofloxacin 750mg bid (End 10/26) -Follow MRSA swab--not done -Follow blood cultures--not done Renal/Electrolytes #SCHUYLER on CKD3, resolving #Lactic acidosis, resolving Baseline sCr 2.0 sCr most recently 2.2 Plan -monitor daily BMP -treat HFrEF/PNA as above Gastrointestinal/Liver #Hyperbilirubinemia -mixed direct/indirect -daily hepatic panel Endocrine - Hematology/Oncology #Hx of DVT Continue eliquis 5 mg BID Musculoskeletal - Feeding Regular Analgesia tylenol Sedation N/A VTE ppx apixaban HOB Elevation 30 Degrees Ulcer ppx protonix Glycemic Control Target 140-180 SBT N/A Bowel Regimen Senna/colace Indwelling none Drug De-Escalation N/A Dispo: home Follow Up: HF, renal Code Status: Full Code This plan is preliminary until finalized by an attending physician. Larry Myers, Internal Medicine, PGY-2 Teaching Physician Note: I saw and evaluated the patient. I personally obtained the reardon and critical portions of the historyand physical exam. I have personally reviewed and discussed the labs and relevant diagnostic studies with resident/fellow. I reviewed the resident's/fellow's documentation and discussed the patient with the resident/fellow. I agree with the resident's/fellow's medical decision making as documented in the resident's/fellow's note. Additional findings, impression and plan as follows: Palliative consult today as the patient refuses to medications and does not want potassium despite hypokalemia . Goals of care discussion if he does not want medications. He refuses cardiac healthy salt restricted diet and wants regular diet . Jim Stockton MD * Jim Stockton MD - 10/20/2024 7:24 AM EDT Images from the original note were not included. [facility] CICU - Progress Note Carlo Mdeina Age [age] year old male ROOM: [place] [address] Admitted 10/17/2024 6:40 PM Hospital Day: 4 Hospital Course: Carlo Medina is a 44 year old male with a PMH of HFrEF (15%), LBBB, HTN, HLD, hx of DVT, CKD3, cirrhosis. Presented for cough present since past hospitalization in beginning of this month. Noticed red tinged sputum, which prompted ED visit. No sick conttacts. Was recently treated for CAP during 09/30-10/06 admission with augmentin/doxycycline. Has been refusing most labs, antibiotics, other therapies this admission. He does have SCHUYLER, elevated lactate, HAP, volume overload. Discussion ongoing regarding treatment that pt wishes to receive. SCHUYLER, lactic acidosis are improving on repeat labs with diuresis and treatment of HAP. HAP being treated with ciprofloxacin/linezolid. Interval Update: Overnight Events: none overnight Vitals: HDS on RA Telemetry Events: 24 Hour UOP: net negative 2L Labs: none LFT: albumin 3.3, tBili 7.9, alk phos 359. Indirect 3.85, direct 4.05 Lactate 2.1 from 4.8 BMP: cr 2.2 (3.2), K 3.5 Mag 2.1 CBC: macrocytosis, plt 142, no wbc Drips: none Subjective: Seen at bedside today. He appears reasonably well. Has been declining isordil due to it not being one of his meds. Has not received cefepime recently, will switch to oral regimen. Objective: Vitals: BP 102/78 (BP Location: left arm) Pulse 92 Temp 97.8 F (36.6 C) (Oral) Resp 15 Ht 6' 1 (1.854 m) Wt 155 lb 3.3 oz (70.4 kg) Comment: standing scale SpO2 95% BMI 20.48 kg/m Exam: General: NAD. HEENT: EOMI. Scleral icterus Heart: RRR. JVD on right Lungs: crackles at bases b/L, L more than R Abdomen: Soft. Extremities: No LE edema. Neuro: A&Ox3 Skin: Warm & dry. Labs: BMP Mg CBC Recent Labs 10/20/24 0629 NA 143 CL 99 K 3.5 CO2 29 BUN 72* CR 2.20* GLU 117* CA 8.4* Recent Labs 10/20/24 0629 MG 2.1 Recent Labs 10/20/24 0629 WBC 11.5 HGB 14.9 HCT 44.2 PLT 142* Images: Chest x-ray was last done on 10/17/2024 Echocardiogram date: 10/01/2024 Assessment & Plan: Carlo Medina is a 44 year old male with PMH of HFrEF (15%), LBBB, HTN, HLD, hx of DVT, CKD3, cirrhosis. Admitted with concern for HAP and decompensated HFrEF. Neurologic - Cardiovascular #Cardiogenic shock #HFrEF (EF 15%) Last echo 10/01 Appears euvolemic and is on home meds -lactate has downtrended to 2.1--roughly baseline Plan -Afterload reduction with isodirl 20 mg TID -Continue home bumex 1mg daily -so far does not want other meds. The above are his home meds. -add to GDMT as able -Trend lactate -Strict I/Os -K > 4, Mg >2 Respiratory - Infectious Disease #Right Lower Lobe Pneumonia #Hospital Acquired Pneumonia Admission for CAP 4/3 CXR demonstrating worsening RLL PNA -respiratory cx normal Plan -continue linezolid. -stop cefepime. Switch to ciprofloxacin 750mg bid -Follow MRSA swab--not done -Follow blood cultures--not done Renal/Electrolytes #SCHUYLER on CKD3, resolving #Lactic acidosis, resolving Baseline sCr 2.0 sCr today 2.2 Plan -monitor daily BMP -treat HFrEF/PNA as above Gastrointestinal/Liver #Hyperbilirubinemia -mixed direct/indirect -daily hepatic panel Endocrine - Hematology/Oncology #Hx of DVT Continue eliquis 5 mg BID Musculoskeletal - Feeding 2 GM Sodium, 2000 cc Fluid Analgesia tylenol Sedation N/A VTE ppx apixaban HOB Elevation 30 Degrees Ulcer ppx protonix Glycemic Control Target 140-180 SBT N/A Bowel Regimen Senna/colace Indwelling none Drug De-Escalation N/A Dispo: home Follow Up: HF, renal Code Status: Full Code This plan is preliminary until finalized by an attending physician. Larry Myers DO Internal Medicine, PGY-2 Teaching Physician Note: I saw and evaluated the patient. I personally obtained the reardon and critical portions of the historyand physical exam. I have personally reviewed and discussed the labs and relevant diagnostic studies with resident/fellow. I reviewed the resident's/fellow's documentation and discussed the patient with the resident/fellow. I agree with the resident's/fellow's medical decision making as documented in the resident's/fellow's note. Jim Stockton MD * Dayna Sanchez RN - 10/19/2024 9:47 PM EDT Patient refusing all evening medications including eliquis, cefepime, and linezolid. When RN ask patient for reason for refusing, patient states I just want to go back to bed. Education provided onimportance of maintaining anticoagulation and adhering to medication regimen including antibiotic tr eatment for pneumonia. MD Dan notified, no new orders at this time. * Shelli Cm Jr., RN - 10/19/2024 6:58 PM EDT 1439: Informed Dr. Myers IV team unable to place any ultrasound guided IVs or obtain any blood for labs. * Shelli Cm Jr., RN - 10/19/2024 12:59 PM EDT Patient Stated can I take my bumex after my IV is done. Patient now stating can I take my bumex after I eat. I will continue to attempt to deliver medications in a timely matter. Team is aware. * Yee Cassidy LSW - 10/19/2024 12:09 PM EDT 10/19/24 1203 Assessment and Discharge Planning Evaluation READMISSION LESS THAN 30 DAYS Yes READMISSION RISK SCORE IS High Risk CLINICAL REASON Nonadherence to treatment plan PATIENT'S VIEW OF READMISSION Nonadherence to treatment plan INTERVIEWED Patient COGNITIVE STATUS Oriented FUNCTIONAL STATUS PRIOR TO ADMISSION Ambulatory;Independent with ADL's HAS ADVANCE DIRECTIVE ON FILE No LIVING SITUATION Home with Family CONNECTED TO MENTAL HEALTH SERVICES No CONNECTED TO COMMUNITY SERVICES No CONNECTED TO SUBSTANCE ABUSE SERVICES No ADMISSION INSURANCE Private Insurance ([employer]) TRANSPORTATION TO AND/OR FROM APPOINTMENTS Family/Friend Provides Ride HOME OXYGEN No HOME HEALTH CARE PRIOR TO ADMISSION No DIALYSIS No DISCUSSSED WHAT HELP PATIENT WOULD NEED Yes SDOH Completed? Yes SDOH Risks Addressed - Do Not complete until all required hernandez are completed Yes DISCHARGE DISPOSITION Home SW following for appropriate dc planning. JAMIE Ford, MADDIE Inpatient Community Health Nurse * Abraham Jean Baptiste, Al - 10/19/2024 9:25 AM EDT Pharmacy Renal Dosing Service Name: Carlo Medina Age: [age] year old Gender: male Ht: 6' 1 Wt: 70.4 kg Patient is currently prescribed the following renally monitored Medication(s): Renally Adjusted Meds (720h ago, onward) Ordered Stop 10/18/24 0535 cefepime (MAXIPIME) 2000 mg in NS 100 mL 2,000 mg, Intravenous, 33.3 mL/hr, EVERY 12 HOURS Question: Suspected Source/Reason for Therapy Answer: Pneumonia (lung) Placed in Followed by Linked Group -- 10/17/24 2237 Apixaban (ELIQUIS) tablet 5 mg, Oral, 2 TIMES DAILY Question: Reason/Indication for Therapy Answer: Nonvalvular atrial fibrillation -- Relevant objective data reviewed: Serum creatinine: 3.22 mg/dL (H) 10/18/24 1339 Estimated creatinine clearance: 28.54 mL/min (A) Assessment and Recommendation: Medication change is required; The recommended therapy is cefepime 1g Q12H . Medication therapy hasbeen updated per consult agreement. Abraham Jean Baptiste PharmD Department of Pharmacy Services * Jim Stockton MD - 10/19/2024 8:20 AM EDT Images from the original note were not included. [facility] CICU - Progress Note Carlo Medina Age [age] year old male ROOM: [place] [address] Admitted 10/17/2024 6:40 PM Hospital Day: 3 Hospital Course: Carlo Medina is a 44 year old male with a PMH of HFrEF (15%), LBBB, HTN, HLD, hx of DVT, CKD3, cirrhosis. Presented for cough present since past hospitalization in beginning of this month. Noticed red tinged sputum, which prompted ED visit. No sick conttacts. Was recently treated for CAP during 09/30-10/06 admission with augmentin/doxycycline. Has been refusing most labs, antibiotics, other therapies this admission. He does have SCHUYLER, elevated lactate, HAP, volume overload. Discussion ongoing regarding treatment that pt wishes to receive. So far is declining most care. Interval Update: Overnight Events: naeo Vitals: HDS on RA Telemetry Events: 24 Hour UOP: net negative 2L Labs: none Drips: none Subjective: Seen at bedside today. He appears reasonably well. Says that he does not want to receive medications because he does not want to be tied to a pole for hours at a time. Discussed the importance of treating his pneumonia to improve his cough. Objective: Vitals: BP 98/82 (BP Location: left arm) Pulse 99 Temp 98.6 F (37 C) (Oral) Resp 14 Ht 6' 1 (1.854m) Wt 155 lb 3.3 oz (70.4 kg) Comment: standing scale SpO2 98% BMI 20.48 kg/m Exam: General: NAD. HEENT: EOMI. Scleral icterus Heart: RRR. JVD on right Lungs: crackles at bases b/L, L more than R Abdomen: Soft. Extremities: No LE edema. Neuro: A&Ox3 Skin: Warm & dry. Labs: BMP Mg CBC Recent Labs 10/18/24 1339 NA 139 CL 101 K 4.1 CO2 21 BUN 88* CR 3.22* GLU 169* CA 8.7 Recent Labs 10/18/24 1339 MG 2.9* Recent Labs 10/18/24 1339 WBC 12.1* HGB 13.3* HCT 40.1* PLT 135* Images: Chest x-ray was last done on 10/17/2024 Echocardiogram date: 10/01/2024 Assessment & Plan: Carlo Medina is a 44 year old male with PMH of HFrEF (15%), LBBB, HTN, HLD, hx of DVT, CKD3, cirrhosis. Admitted with concern for HAP and decompensated HFrEF. Neurologic - Cardiovascular #Cardiogenic shock #HFrEF (EF 15%) Last echo 10/01 Appears euvolemic and is on home meds -last lactate 4.8, none new Plan -Afterload reduction with isodirl 20 mg TID -Continue home bumex 1mg daily -so far does not want other meds. The above are his home meds. -Trend lactate -Strict I/Os -K > 4, Mg >2 Respiratory - Infectious Disease #Right Lower Lobe Pneumonia #Hospital Acquired Pneumonia Admission for CAP 4/3 CXR demonstrating worsening RLL PNA -respiratory cx normal Plan -stop vanco, start linezolid. Not able to get vanco levels -Continue cefepime, he is receiving it this morning. -Follow MRSA swab -Follow blood cultures Renal/Electrolytes #SCHUYLER on CKD3 #Lactic acidosis Baseline sCr 2.0 sCr here 3.22 Plan -monitor daily BMP -hopefull to get repeat labs today. Currently unable to get blood from pt and he is not amenable toline placement at this time Gastrointestinal/Liver - Endocrine - Hematology/Oncology #Hx of DVT Continue eliquis 5 mg BID Musculoskeletal - Feeding 2 GM Sodium, 2000 cc Fluid Analgesia tylenol Sedation N/A VTE ppx apixaban HOB Elevation 30 Degrees Ulcer ppx protonix Glycemic Control Target 140-180 SBT N/A Bowel Regimen Senna/colace Indwelling none Drug De-Escalation N/A Dispo: home Follow Up: HF, renal Code Status: Full Code This plan is preliminary until finalized by an attending physician. Larry Myers DO Internal Medicine, PGY-2 Teaching Physician Note: I saw and evaluated the patient. I personally obtained the reardon and critical portions of the historyand physical exam. I have personally reviewed and discussed the labs and relevant diagnostic studies with resident/fellow. I reviewed the resident's/fellow's documentation and discussed the patient with the resident/fellow. I agree with the resident's/fellow's medical decision making as documented in the resident's/fellow's note. Spoke to the patient at stretch, resistant to getting IV lines or blood drawn as well administration of medications needed. Nurse have attempted multiple times counselling the patient as well. Jim Stockton MD * Efren Messina RN - 10/19/2024 6:29 AM EDT Second attempt to collect stat labs, patient refused, pt refused medication ordered for this am , education provided, pt verbalized understanding and continued to refused, made aware, not further orders received * Efren Messina RN - 10/19/2024 4:54 AM EDT Attempt perform to collect ordered stat labs this AM, pt refused labs collection at this time, primary nurse educated patient on risk factor of continue refusing treatment , pt verbalized understanding and continued to refuse, primary nurse will attempt to reassess pt in one hour. Dr Dan made goel, not further order. * Efren Messina RN - 10/18/2024 9:53 PM EDT Patient re-assess for medication administration pt continued refusing ordered treatment, pt also refuse labs collection order at this time, education provided on POC patient verbalized understanding and continued to refuse,pt also verbalized that he preferred to focus on his breathing and cough, primary nurse assess breathing without any significant finding at this time, and offer PRN medication that pt refuse, , Kylie, was notified, not further order received at this time, will continued to monitor this pt closely. * Efren Messina RN - 10/18/2024 9:20 PM EDT Patient refuses medication administration at this time, pt verbalized that he preferred to sleep , education provided on medication administration, pt verbalized understanding and continue to refused, medication rescheduled by primary nurse to 2200, primary nurse will reassess pt at that time, for m edication administration.Efren Escalante RN * Xenia Taylor RN - 10/18/2024 1:57 PM EDT /GREG Myers notified of critical lactic acid value of 4.8. /GREG Myers read back critical results. New orders received. * Alex Garay RPh - 10/18/2024 5:39 AM EDT Pharmacokinetic Dosing Service - VANCOMYCIN Name: Carlo Medina Age:[age] year old Gender: male Ht: 6' 1 Wt: 69.4 kg Indication: Pneumonia Desired Ranges: 15-20 Day of therapy:1 Assessment and Recommendations: Due to current renal function (CKD), patient is being dosed by levels. A Vancomycin 1 x dose of 1500 mg has been given on 10/17/24 @ 2230. The next vancomycin level is due 24 hrs after the last dose. Pharmacy will post notes for levels upon return and for dose changes. The medication regimen has been updated per consult agreement procedures. Current Dose Active Vancomycin Orders (From admission, onward) None Lab Values: Creatinine Date Value Ref Range Status 10/17/2024 2.80 (H) 0.70 - 1.30 mg/dL Final 10/06/2024 1.98 (H) 0.70 - 1.30 mg/dL Final 10/05/2024 2.18 (H) 0.70 - 1.30 mg/dL Final No results found for: VANCTRNo results found for: VANCR Serum creatinine: 2.8 mg/dL (H) 10/17/242021 Estimated creatinine clearance: 32.36 mL/min (A) Culture(s): PENDING Alex Garay RPh - Department of Pharmacy Services documented in this [id number] NoteThe [facility] 10-26-2024 Hospital course Narrative* Anshul Laird APRN-VIKKI - 10/26/2024 9:36 AM EDT Images from the original note were not included. DISCHARGE SUMMARY [facility] [address] [place] [address] Carlo Medina Date of : 1980 44 year old male Attending Anshul Laird APRN-CNP Date of Admission 10/17/2024 Date of Discharge 10/26/2024 Final Diagnosis: Acute on chronic HFrEF (heart failure with reduced ejection fraction) (HCC) Hospital Problems as of 10/26/2024 * (Principal) Acute on chronic HFrEF (heart failure with reduced ejection fraction) (HCC) Acute deep vein thrombosis (DVT) of lower extremity (HCC) Acute kidney injury superimposed on stage 3b chronic kidney disease Pneumonia of right lower lobe due to infectious organism Cirrhosis (HCC) Hypomagnesemia Hypokalemia RESOLVED: Cardiogenic shock (HCC) Discharge Procedure Orders Complete Blood Count W/Diff Standing Status: Future Standing Exp. Date: 04/27/25 Basic Metabolic Panel Standing Status: Future Standing Exp. Date: 04/27/25 Magnesium Standing Status: Future Standing Exp. Date: 04/27/25 Hepatic Function Panel Standing Status: Future Standing Exp. Date: 04/27/25 LIVER SERVICE REQUEST Referral Priority: Routine Referral Type: Service Level Authorization Referral Location: [facility] Number of Visits Requested: 3 Expiration Date: 10/26/25 Future Appointments Date Time Provider Department Center 11/12/2024 8:40 AM Jamal Geronimo MD [facility] 11/17/2024 2:20 PM Disha Brenner MD [facility] He Condition at Discharge unchanged Symptoms to look out for after discharge: Headache, Chest Pain, Drainage/Bleeding from wound or surgical site, Unable to keep down fluids andDizziness Activity no restrictions Diet 2 gram sodium Disposition home Functional Status ambulatory This patient is not being discharged to a facility, and does not require completion of the facilityform. Reason for Hospitalization Acute HFrEF Exacerbation Significant Findings Day of Discharge Physical Exam 10/26/2024 GEN: No acute distress, alert and cooperative HEENT: NCNT. Sclera Exteirs Neck: Soft, full ROM. Elevated JVP CV: Normal S1S2, RRR, no murmurs, clicks or gallops Lungs: Crackles in bilateral bases with stable respiratory effort and on Room air. GI: Soft, NTND abdomen with active bowel sounds Skin: Intact, no active rash or lesions M/S: Full ROM, strength 5/5,+1 edema in BLE, and pulses palpable Back: Normal ROM with no tenderness Neuro: Oriented x3, follows commands, and has no focal deficits 10/17/2024 8:22 PM 10/18/2024 1:39 PM 10/20/2024 6:29 AM 10/21/2024 10:01 AM 10/25/2024 3:03 PM WBC 12.8 (H) 12.1 (H) 11.5 9.7 14.1 (H) RBC 3.88 (L) 3.90 (L) 4.27 (L) 3.90 (L) 3.54 (L) Hemoglobin 13.6 (L) 13.3 (L) 14.9 13.8 (L) 12.3 (L) Hematocrit 40.2 (L) 40.1 (L) 44.2 40.8 (L) 36.8 (L) MCV 104 (H) 103 (H) 104 (H) 105 (H) 104 (H) MCH 34.9 (H) 34.2 (H) 34.9 (H) 35.2 (H) 34.9 (H) MCHC 33.8 33.2 33.7 33.7 33.5 Platelet 153 135 (L) 142 (L) 162 226 RDW-CV% 16.3 (H) 16.4 (H) 17.2 (H) 17.0 (H) 16.9 (H) MPV 9.3 9.6 8.5 8.3 9.2 Neutrophils 85.5 (H) 86.6 (H) 85.8 (H) 85.8 (H) 78.2 (H) Neutrophil # 10.98 (H) 10.45 (H) 9.91 (H) 8.32 (H) 11.07 (H) Lymphocytes 7.8 (L) 8.2 (L) 8.2 (L) 8.7 (L) 13.8 (L) Lymph Absolute 1.01 0.99 (L) 0.95 (L) 0.84 (L) 1.95 Monocytes 6.4 4.9 5.2 5.1 7.3 Monocyte Absolute 0.82 0.59 0.60 0.50 1.04 (H) Eosinophil 0.0 (L) 0.0 (L) 0.2 0.2 0.1 Eosinophil Absolute 0.00 0.00 0.02 0.02 0.02 Basophils 0.3 0.4 0.6 0.2 0.5 Basophil # 0.03 0.05 0.07 0.02 0.07 Legend: (H) High (L) Low 10/17/2024 8:22 PM 10/18/2024 1:39 PM 10/20/2024 6:29 AM 10/21/2024 10:01 AM 10/25/2024 3:03 PM Magnesium 2.9 (H) 2.9 (H) 2.1 1.5 (L) 2.1 Legend: (H) High (L) Low 10/17/2024 8:22 PM 10/18/2024 1:39 PM 10/20/2024 6:29 AM 10/21/2024 10:01 AM Glucose 106 169 (H) 117 (H) 131 (H) Sodium 137 139 143 142 Potassium 4.7 4.1 3.5 3.2 (L) Carbon Dioxide 15 (L) 21 29 32 (H) Chloride 101 101 99 96 (L) BUN 84 (H) 88 (H) 72 (H) 52 (H) Creatinine 2.80 (H) 3.22 (H) 2.20 (H) 1.46 (H) Calcium 8.7 8.7 8.4 (L) 7.7 (L) Anion Gap 26 (H) 21 (H) 19 17 Estimated GFR 27 (L) 23 (L) 36 (L) 60 Creatinine, Urine Urea nitrogen, Urine Urea, Serum Fractional Excretion of Urea % Sodium Fractional Excretion of Sodium % 10/25/2024 3:03 PM Glucose 130 (H) Sodium 134 (L) Potassium 4.0 Carbon Dioxide 30 Chloride 88 (L) BUN 60 (H) Creatinine 2.15 (H) Calcium 7.7 (L) Anion Gap 20 Estimated GFR 38 (L) Creatinine, Urine Urea nitrogen, Urine Urea, Serum Fractional Excretion of Urea % Sodium Fractional Excretion of Sodium % Legend: (L) Low (H) High 10/18/2024 1:39 PM 10/20/2024 6:29 AM 10/21/2024 10:01 AM 10/25/2024 3:03 PM Albumin 3.3 (L) 3.3 (L) 3.1 (L) 3.1 (L) Bilirubin, Direct 4.95 (H) 4.05 (H) 3.54 (H) 3.77 (H) Bilirubin, Total 8.8 (H) 7.9 (H) 6.4 (H) 7.3 (H) Alkaline Phosphatase 273 (H) 359 (H) 348 (H) 393 (H) ALT (SGPT) 25 33 43 54 (H) AST (SGOT) 31 50 (H) 60 (H) 48 (H) Protein, Total 6.2 6.4 6.3 6.0 Legend: (L) Low (H) High 10/18/2024 1:39 PM Procalcitonin 16.82 (H) Legend: (H) High [place] [facility] [place] [id number] Collected 10/18/2024 13:41 Status: Final result Visible to patient: Yes (not seen) Specimen Information: Sputum, expectorated; Respiratory 0 Result Notes Resp Culture Squamous Epithelial Cells present. Recommend submission of another specimen. Resulting Agency: [facility] [place] Collected: 10/18/24 13:41 Last Resulted: 10/18/24 15:29 CXR 10/25/2024 IMPRESSION: Bilateral patchy airspace opacities, slightly decreased at the right lung base and increased at theleft lung apex. CXR 10/13/2024 IMPRESSION: Suspected improved but persistent right lower lobe consolidation. No pleural effusion. Stable cardiomegaly. Hospital Course Per H&P Below written by Christopher Banegas DO, 44 year old male admitted on 10/17/2024 with a PMH of HFrEF (15%), LBBB, HTN, HLD, hx of DVT, CKD3, cirrhosis. Patient presented to the ED reporting cough which has been presented since recent hospitalization (09/30/24 - 10/06/24). Recently, he has noticed blood tinged sputum which prompted his ED visit. He also endorses chest pain, dyspnea at rest, and worsening bilateral lower extremity edema. He reports compliance with all home medication. No recent fevers, chills, sick contacts, nausea, vomiting, or diarrhea. During recent hospitalization, patient was initially admitted to Family Medicine inpatient team formanagement of ADHF likely secondary to CAP. However, ultimately required transfer to the CICU with concern for cardiogenic shock. While in the CICU, the patient refused IV therapies and invasive interventions after an unsuccessful right heart catheterization. Multiple discussion were had regarding the potential for further decompensation and potential sudden cardiac however the patient continued to refuse treatment. He was medically optimized and discharged with bumex/isodirl/eliquis. CAPmanaged with a course of augmentin/doxycycline. Currently, pt endorses cough and dyspnea at rest. Patient provided 2L NC for comfort. Pt admitted to CICU for management of cardiogenic shock. ED Course: Vitals: Temp 97.5, HR 115, BP 101/80, SpO2 100% Labs: - BMP: Glucose: 106, Na: 137, K: 4.7, M.9, Cr: 2.80 (baseline 2.0) - CBC: WBC: 12.8, Hgb: 13.6 (baseline 13.5), Platelet: 153 - ALT: N/A, AST: N/A, Alk Phos: N/A - ESR: N/A, CRP: N/A - Lactate: 4.7 - Troponin: 49 - BNP N/A - TSH: N/A EKG: Sinus Tachycardia, Right [place] Deviation, RBBB Imaging: - CXR 10/17/24 demonstrating interval worsening RLL PNA 44 year old male with a PMH of HFrEF (15%), LBBB, HTN, HLD, hx of DVT, CKD3, cirrhosis. Presented to the ED for a cough since his previous hospital stay 09/30- 10/06 which he was treated for a CAP with Augmentin/doxycycline. IN the ED lactate elevated at 5.3, NT proBNP over 60,000, admitted to the CICU for management of cardiogenic shock, SCHUYLER and treatment of HAP given CXR with worsening RLL PNA. Course difficult given patient declining care including blood work, medications, GOC discussion started in the CICU. Transferred out to [facility] in stable condition. Patient completed abx course 10/23. Course complicated by patient continued intermittent refusal of medications. Patient has been intermittenly refusing treatment (refusing to take cardiac medications, get lab work done). Had 2 very long conversations with the patient in regards to how weak his heart is and how sick his body is. We talked in great detail how important it is to take medications and get further workup done. He expressed understanding and was able to verbalize what is going on with his heart and is refusing any further medica l treatment at this time. He fully understands that at given moment due to his heart being as weak as it is and him still having fluid overload that he could go into cardiogenic shock and and still, he wishes to decline interventions. He denies any SI. He understands that risk and has the capacity to make his own medical decisions. He wishes to be discharged home at this time even though lab work still shows vascular congestion due to worsening SCHUYLER and LFTs. He wishes to follow up with HF here in [place] for further discussion. He does not wish to be palliative care/hospice at this time. Follow Up -f/u Mag ANNETTE on -f/u with Dr. Geronimo in cardiology 11/12 -f/u with liver clinic for cirrhosis on 11/17 -f/u with PCP in [place], refusing to get PCP here I provided the patient and/or family/surrogate with the following information: Explanation of the primary diagnosis, and secondary diagnoses where applicable, including test results, Discussion of any new medications and treatments, including expected benefits and potential major side effects, Explanation of previous treatments or medications that are discontinued, Discussionof post- hospital day-to-day care needs, and Follow-up plans, and warning signs that should prompt more urgent follow-up Current Discharge Medication List START taking these medications Details Pediatric Multivitamins-Iron (Cerovite Jr) chew tab Chew and swallow 1 Tablet by mouth daily. Qty: 30 Tablet, Refills: 0 docusate sodium (COLACE) 100 MG capsule Take 1 Capsule by mouth 2 times daily. Qty: 60 Capsule, Refills: 3 CONTINUE these medications which have CHANGED Details bumetanide (BUMEX) 1 MG tablet Take 1 Tablet by mouth 2 times daily. Qty: 60 Tablet, Refills: 2 isosorbide dinitrate (ISORDIL) 20 MG tablet Take 1 Tablet by mouth 3 times daily. Qty: 90 Tablet, Refills: 3 CONTINUE these medications which have NOT CHANGED Details Apixaban (ELIQUIS) 5 MG tablet Take 1 Tablet by mouth 2 times daily. Qty: 60 Tablet, Refills: 0 Associated Diagnoses: Acute deep vein thrombosis (DVT) of distal vein of lower extremity, unspecified laterality (HCC) Cholecalciferol 50 MCG (2000 UT) CAPS Take 1 Capsule by mouth daily. magnesium oxide (MAG-OX) 400 (240 Mg) MG TABS tablet Take 400 mg by mouth daily. pantoprazole (PROTONIX) 40 MG tablet Take 40 mg by mouth daily. calcitRIOL (ROCALTROL) 0.5 MCG capsule Take 0.5 mcg by mouth 2 times daily. calcium carbonate (TUMS) 500 mg (200 mg elemental) tablet Take 1,000 mg by mouth 3 times daily. STOP taking these medications amoxicillin-clavulanate (AUGMENTIN) 875-125 MG per tablet Comments: Reason for Stopping: doxycycline (VIBRA-TABS) 100 MG tablet Comments: Reason for Stopping: benzonatate (Tessalon Perles) 100 MG capsule Comments: Reason for Stopping: lidocaine (LIDODERM) 4 % PTCH patch Comments: Reason for Stopping: folic acid 1 MG tablet Comments: Reason for Stopping: More than 30 minutes spent by me in preparing this patient's discharge and in counseling the patient and/or family on the nature of the illness requiring hospital care. Anshul Laird MSN, CURRICULUM DIRECTOR, AGACNP- Team 9- Hospital Medicine Pager # [phone] documented in this [id number] Hospital Discharge instructions* Discharge Instructions* Anshul Laird APRN-CNP - 10/26/2024 9:36 AM EDT Please follow up with heart failure doctor due to your ejection fraction being 15%. Please get repeat labs this week and follow up with your family doctor * Attachments The following attachments cannot be sent through Care Everywhere. * Acute Kidney Injury Discharge Instructions (Moroccan) * Heart Failure Discharge Instructions, Adult (Moroccan) documented in this [id number] NotePatient called stating IV was causing him pain. IV was assessed no obvious obstruction or infiltrates. Patient given education on the risk of having no IV access. Patient still requesting IV removal. Removed at 1999.[facility]04-28-2025 Evaluation + Plan note* Assessment & Plan Note - Anshul Laird APRN-CNP - 10/25/2024 1:26 PM EDTAssociated Problem(s): Pneumonia of right lower lobe due to infectious organism No leukocytosis, afebrile, stable on room air, procal elevated to 16.8 on admission Given recent hospitalization, treating for HAP - completed course of linezolid and cipro today 10/24 [id number] Evaluation + Plan note* Assessment & Plan Note - Anshul Laird APRN-CNP - 10/25/2024 1:26 PM EDTAssociated Problem(s): Acute on chronic HFrEF (heart failure with reduced ejection fraction) (HCC) Echo with LVEF 15% - Bumex 1 mg daily - patient willing to take today - isordil 20 mg tid - patient willing to take today - patient declining further medication titration such as beta jerome due to erectile dysfunction .Will see what labs show and if stable, will start SLGT2 inhibitor - monitor on tele if agreeable - follow up with heart failure as an outpatient - continue GOC discussions [id number] Evaluation + Plan note* Assessment & Plan Note - Anshul Laird APRN-CNP - 10/25/2024 1:26 PM EDTAssociated Problem(s): Acute kidney injury superimposed on stage 3b chronic kidney disease Max creatinine this stay 3.2, down trending to 1.46 which appears to be better than baseline - avoid nephrotoxic agents - repeat bmp as patient will allow [id number] Evaluation + Plan note* Assessment & Plan Note - Anshul Laird APRN-CNP - 10/25/2024 1:26 PM EDTAssociated Problem(s): Cirrhosis (HCC) With hyperbili - liver clinic as an outpatient - [facility] when patient willing [id number] Evaluation + Plan note* Assessment & Plan Note - Anshul Laird APRN-CNP - 10/25/2024 1:26 PM EDTAssociated Problem(s): Hypomagnesemia Level 1.5 10/21 - only agreeable to mag oxide - repeat level in am [id number] Evaluation + Plan note* Assessment & Plan Note - Anshul Laird APRN-CNP - 10/25/2024 1:26 PM EDTAssociated Problem(s): Hypokalemia Level 3.2 10/21 - he declined potassium PO and IV - BMP as patient will allow [id number] Evaluation + Plan note* Assessment & Plan Note - Anshul Laird APRN-CNP - 10/25/2024 1:26 PM EDTAssociated Problem(s): Acute deep vein thrombosis (DVT) of lower extremity (HCC) - apixaban 5 mg po bid [id number] Miscellaneous Notes* Assessment & Plan Note - Anshul Laird APRN-CNP - 10/25/2024 1:26 PM EDTAssociated Problem(s): Pneumonia of right lower lobe due to infectious organism No leukocytosis, afebrile, stable on room air, procal elevated to 16.8 on admission Given recent hospitalization, treating for HAP - completed course of linezolid and cipro today 10/24 * Assessment & Plan Note - Anshul Laird APRN-CNP - 10/25/2024 1:26 PM EDT Associated Problem(s): Acute on chronic HFrEF (heart failure with reduced ejection fraction) (HCC) Echo with LVEF 15% - Bumex 1 mg daily - patient willing to take today - isordil 20 mg tid - patient willing to take today - patient declining further medication titration such as beta jerome due to erectile dysfunction .Will see what labs show and if stable, will start SLGT2 inhibitor - monitor on tele if agreeable - follow up with heart failure as an outpatient - continue GOC discussions * Assessment & Plan Note - Anshul Laird APRN-CNP - 10/25/2024 1:26 PM EDT Associated Problem(s): Acute kidney injury superimposed on stage 3b chronic kidney disease Max creatinine this stay 3.2, down trending to 1.46 which appears to be better than baseline - avoid nephrotoxic agents - repeat bmp as patient will allow * Assessment & Plan Note - Anshul Laird APRN-CNP - 10/25/2024 1:26 PM EDT Associated Problem(s): Cirrhosis (HCC) With hyperbili - liver clinic as an outpatient - [facility] when patient willing * Assessment & Plan Note - Anshul Laird APRN-CNP - 10/25/2024 1:26 PM EDT Associated Problem(s): Hypomagnesemia Level 1.5 10/21 - only agreeable to mag oxide - repeat level in am * Assessment & Plan Note - Anshul Laird APRN-CNP - 10/25/2024 1:26 PM EDT Associated Problem(s): Hypokalemia Level 3.2 10/21 - he declined potassium PO and IV - BMP as patient will allow * Assessment & Plan Note - Anshul Laird APRN-CNP - 10/25/2024 1:26 PM EDT Associated Problem(s): Acute deep vein thrombosis (DVT) of lower extremity (HCC) - apixaban 5 mg po bid * Assessment & Plan Note - Sara Tineo MD - 10/24/2024 12:08 PM EDT Associated Problem(s): Pneumonia of right lower lobe due to infectious organism No leukocytosis, afebrile, stable on room air, procal elevated to 16.8 on admission Given recent hospitalization, treating for HAP - complete course of linezolid and cipro today (d7/7) * Assessment & Plan Note - Sara Tineo MD - 10/24/2024 12:08 PM EDT Associated Problem(s): Acute on chronic HFrEF (heart failure with reduced ejection fraction) (HCC) Echo with LVEF 15% - Bumex 1 mg daily - patient willing to take today - isordil 20 mg tid - patient willing to take today - patient declining further medication titration - monitor on tele if agreeable - follow up with heart failure as an outpatient - continue GOC discussions, ?psych consult * Assessment & Plan Note - Sara Tineo MD - 10/24/2024 12:08 PM EDT Associated Problem(s): Acute kidney injury superimposed on stage 3b chronic kidney disease Max creatinine this stay 3.2, down trending to 1.46 which appears to be better than baseline - avoid nephrotoxic agents - repeat bmp as patient will allow * Assessment & Plan Note - Sara Tineo MD - 10/24/2024 12:08 PM EDT Associated Problem(s): Cirrhosis (HCC) With hyperbili - liver clinic as an outpatient - [facility] when patient willing * Assessment & Plan Note - Sara Tineo MD - 10/24/2024 12:08 PM EDT Associated Problem(s): Hypomagnesemia Level 1.5 10/21 - only agreeable to mag oxide - repeat level in am * Assessment & Plan Note - Sara Tineo MD - 10/24/2024 12:08 PM EDT Associated Problem(s): Hypokalemia Level 3.2 10/21 - he declined potassium PO and IV again today - BMP in am * Assessment & Plan Note - Sara Tineo MD - 10/24/2024 12:08 PM EDT Associated Problem(s): Acute deep vein thrombosis (DVT) of lower extremity (HCC) - apixaban 5 mg po bid * Assessment & Plan Note - Sara Tineo MD - 10/23/2024 11:42 AM EDT Associated Problem(s): Cirrhosis (HCC) With hyperbili - liver clinic as an outpatient - [facility] when patient willing * Assessment & Plan Note - Sara Tineo MD - 10/23/2024 11:42 AM EDT Associated Problem(s): Hypomagnesemia Level 1.5 10/21 - only agreeable to mag oxide - repeat level in am * Assessment & Plan Note - Sara Tineo MD - 10/23/2024 11:42 AM EDT Associated Problem(s): Hypokalemia Level 3.2 10/21 - he declined potassium PO and IV again today - BMP in am * Assessment & Plan Note - Saar Tineo MD - 10/23/2024 11:42 AM EDT Associated Problem(s): Acute deep vein thrombosis (DVT) of lower extremity (HCC) - apixaban 5 mg po bid * Assessment & Plan Note - Sara Tineo MD - 10/23/2024 11:42 AM EDT Associated Problem(s): Pneumonia of right lower lobe due to infectious organism No leukocytosis, afebrile, stable on room air, procal elevated to 16.8 on admission Given recent hospitalization, treating for HAP - complete course of linezolid and cipro today (d7/7) * Assessment & Plan Note - Sara Tineo MD - 10/23/2024 11:42 AM EDT Associated Problem(s): Acute on chronic HFrEF (heart failure with reduced ejection fraction) (HCC) Echo with LVEF 15% - Bumex 1 mg daily - patient willing to take today - isordil 20 mg tid - patient willing to take today - patient declining further medication titration - monitor on tele if agreeable - follow up with heart failure as an outpatient - continue GOC discussions, ?psych consult * Assessment & Plan Note - Sara Tineo MD - 10/23/2024 11:42 AM EDT Associated Problem(s): Acute kidney injury superimposed on stage 3b chronic kidney disease Max creatinine this stay 3.2, down trending to 1.46 which appears to be better than baseline - avoid nephrotoxic agents - repeat bmp as patient will allow * Assessment & Plan Note - Sara Tineo MD - 10/22/2024 10:42 AM EDT Associated Problem(s): Pneumonia of right lower lobe due to infectious organism No leukocytosis, afebrile, stable on room air, procal elevated to 16.8 on admission Given recent hospitalization, treating for HAP - continue linezolid and cipro (d6/7) * Assessment & Plan Note - Sara Tineo MD - 10/22/2024 10:42 AM EDT Associated Problem(s): Acute on chronic HFrEF (heart failure with reduced ejection fraction) (HCC) Echo with LVEF 15% - Bumex 1 mg daily - will restart today - isordil 20 mg tid - patient refusing - patient declining further medication titration - monitor on tele if agreeable - follow up with heart failure as an outpatient - continue GOC discussions * Assessment & Plan Note - Sara Tineo MD - 10/22/2024 10:42 AM EDT Associated Problem(s): Cirrhosis (HCC) With hyperbili - liver clinic as an outpatient - [facility] when patient willing * Assessment & Plan Note - Sara Tineo MD - 10/22/2024 10:42 AM EDT Associated Problem(s): Hypomagnesemia Level 1.5 10/21 - only agreeable to mag oxide - repeat level in am * Assessment & Plan Note - Sara Tineo MD - 10/22/2024 10:42 AM EDT Associated Problem(s): Hypokalemia Level 3.2 10/21 - he declined potassium PO and IV again today - BMP in am * Assessment & Plan Note - Sara Tineo MD - 10/22/2024 7:22 AM EDT Associated Problem(s): Acute kidney injury superimposed on stage 3b chronic kidney disease Max creatinine this stay 3.2, down trending to 1.46 which appears to be better than baseline - avoid nephrotoxic agents - repeat bmp in am * Assessment & Plan Note - Sara Tineo MD - 10/22/2024 7:22 AM EDT Associated Problem(s): Acute deep vein thrombosis (DVT) of lower extremity (HCC) - apixaban 5 mg po bid * Assessment & Plan Note - Leatha Mckeon APRN-CNP - 10/21/2024 6:01 PM EDT Associated Problem(s): Pneumonia of right lower lobe due to infectious organism No leukocytosis, afebrile, stable on room air, procal elevated to 16.8 Given recent hospitalization, treating for HAP - continue linezolid and cipro * Assessment & Plan Note - Leatha Mckeon APRN-CNP - 10/21/2024 6:01 PM EDT Associated Problem(s): Cardiogenic shock (HCC) (Resolved 10/21/2024) Managed in the cicu, at this time has resolved * Assessment & Plan Note - Leatha Mckeon APRN-CNP - 10/21/2024 6:01 PM EDT Associated Problem(s): Acute on chronic HFrEF (heart failure with reduced ejection fraction) (HCC) Echo with LVEF 15% - Bumex 1 mg daily on hold - consider restarting in am - isordil 20 mg tid - patient declining further medication titration - monitor on tele if agreeable - follow up with heart failure as an outpatient - continue GOC discussion * Assessment & Plan Note - Leatha Mckeon APRN-CNP - 10/21/2024 6:01 PM EDT Associated Problem(s): Acute kidney injury superimposed on stage 3b chronic kidney disease Max creatinine this stay 3.2, down trending to 1.46 which appears to be better than baseline - avoid nephrotoxic agents - repeat bmp in am * Assessment & Plan Note - Leatha Mckeon APRN-CNP - 10/21/2024 6:01 PM EDT Associated Problem(s): Cirrhosis (HCC) With hyperbili - liver clinic as an outpatient - HFP in am * Assessment & Plan Note - Leatha Mckeon APRN-CNP - 10/21/2024 6:01 PM EDT Associated Problem(s): Hypomagnesemia Level 1.5 this am - only agreeable to mag oxide - repeat level in am * Assessment & Plan Note - Leatha Mckeon APRN-CNP - 10/21/2024 6:01 PM EDT Associated Problem(s): Hypokalemia Level 3.2 - he declined potassium PO and IV - BMP in am * Assessment & Plan Note - Leatha Mckeon APRN-CNP - 10/21/2024 6:01 PM EDT Associated Problem(s): Acute deep vein thrombosis (DVT) of lower extremity (HCC) - apixaban 5 mg po bid * Hospital Course - Anshul Laird APRN-CNP - 10/21/2024 5:42 PM EDT Carlo Medina is a 44 year old male with a PMH of HFrEF (15%), LBBB, HTN, HLD, hx of DVT, CKD3, cirrhosis. Presented to the ED for a cough since his previous hospital stay 09/30-10/06 which he was treated for a CAP with Augmentin/doxycycline. IN the ED lactate elevated at 5.3, NT proBNP over 60,000, admitted to the CICU for management of cardiogenic shock, SCHUYLER and treatment of HAP given CXR with worsening RLL PNA. Course difficult given patient declining care including blood work, medications, GOC discussion started in the CICU. Transferred out to [facility] in stable condition. Patient completed abxcourse 10/23. Course complicated by patient continued intermittent refusal of medications. 10/25 Attempting lab work on the patient and is agreeable to take his medications today. If stable lab work, will start SLGT2 inhibitor. Nursing staff and nursing aid attempted blood work with no success. Pending IV team to get labs. * Transfer Note - Larry Myers DO - 10/21/2024 11:43 AM EDT Images from the original note were not included. Provider Called Report To (Enter Provider Name, Service, and Time): Dr. Tineo, Medicine Team 6, 15:35 [facility] Transfer Note Hospital Course: Carlo Medina is a 44 year old male with a PMH of HFrEF (15%), LBBB, HTN, HLD, hx of DVT, CKD3, cirrhosis. Presented for cough present since past hospitalization in beginning of this month. Noticed red tinged sputum, which prompted ED visit. No sick conttacts. Was recently treated for CAP during 09/30-10/06 admission with augmentin/doxycycline. Admitted to CICU for cardiogenic shock and HAP. Has been refusing most labs, and intermittently accepting antibiotics, HF therapies. Discussion ongoing regarding treatment that pt wishes to receive. SCHUYLER, lactic acidosis are improving on repeat labs with diuresis and treatment of HAP. HAP being treated with ciprofloxacin/linezolid. Transfer to med tele. Vitals: BP 89/74 (BP Location: left arm) Pulse 106 Temp 98.1 F (36.7 C) (Oral) Resp 19 Ht 6' 1 (1.854 m) Wt 149 lb 9.6 oz (67.9 kg) SpO2 99% BMI 19.74 kg/m Current Meds: Scheduled: potassium chloride 40 mEq One Time Dose potassium chloride 40 mEq One Time Dose ciprofloxacin 750 mg 2x Daily linezolid 600 mg 2x Daily isosorbide dinitrate 20 mg 3x Daily pantoprazole 40 mg Daily 30 min before breakfast docusate sodium 100 mg 2x Daily senna 8.6 mg At Bedtime Apixaban 5 mg 2x Daily PRN: acetaminophen 650 mg Q4H PRN guaiFENesin 200 mg Q4H PRN nitroglycerin 0.4 mg Q5 Min PRN To Do: []Possible palliative care consult. CICU team began GOC conversations 10/21 as documented in progress note []Continue HAP coverage with linezolid and ciprofloxacin []Continue to optimize GDMT pending pt goals Larry Myers DO Internal Medicine, PGY-2 documented in this [id number] Consult note* Maya Hoff RD - 10/25/2024 10:56 AM EDT Images from the original note were not included. Adult IP Nutrition Assessment Reason for RD Visit: Positive nutrition screen C - wt loss is allergic to: Allergies Allergen Reactions Torsemide Vomiting Reports did not tolerate, refuses to take again Sacubitril-Valsartan Vomiting Basic Metabolic Panel No lab values to display. CBC (last 3 years, up to 8 values) 10/21/2024 10/20/2024 10/18/2024 10/17/2024 10/06/2024 10/05/2024 10/02/2024 10/01/2024 10:01 AM 6:29 AM 1:39 PM 8:22 PM 4:56 AM 12:29 AM 6:37 PM 4:36 AM WBC 9.7 11.5 12.1 12.8 8.2 9.2 12.4 10.9 RBC 3.90 4.27 3.90 3.88 4.00 3.83 3.82 4.11 Hgb 13.8 14.9 13.3 13.6 13.8 13.3 13.2 14.2 Hct 40.8 44.2 40.1 40.2 40.8 39.7 39.1 42.8 MCV 105 104 103 104 102 104 102 104 RDW 17.0 17.2 16.4 16.3 15.1 15.2 14.5 14.9 Plt 162 142 135 153 206 195 212 227 LFT's (last 3 years, up to 8 values) 10/21/2024 10/20/2024 10/18/2024 09/30/2024 09/09/2024 09/08/2024 09/06/2024 09/06/2024 10:01 AM 6:29 AM 1:39 PM 4:21 PM 4:01 AM 1:10 AM 8:42 PM 9:40 AM T Prot 6.3 6.4 6.2 6.5 6.1 6.4 6.4 6.4 Albumin 3.1 3.3 3.3 3.8 3.6 3.7 3.7 3.6 D Bili 3.54 4.05 4.95 2.40 0.79 0.85 0.81 1.04 T Bili 6.4 7.9 8.8 5.7 2.2 2.2 2.4 2.7 Alk Phos 348 359 273 331 202 247 224 233 ALT 43 33 25 28 37 42 44 46 AST 60 50 31 19 24 27 25 25 Lipids (last 3 years, up to 8 values) 10/01/2024 08/27/2024 4:36 AM 10:35 AM Chol- esterol 152 204 TG 66 106 HDL 16 28 LDL 127 162 Chol / HDL 9.50 7.29 LDL / HDL 7.94 5.79 Non HDL 136 176 Lab Results Component Value Date HBA1C 6.1 (H) 10/01/2024 Fingerstick Glucose (last 72 hours) None Vitamin B12 (pg/mL) Date Value 08/27/2024 927 (H) No results found for: FOL Vitamin D, 25-OH (ng/mL) Date Value 08/27/2024 13.3 (L) No results found for: ZINC Nutrition Focused Physical Exam: - Pt declined NFPE Edema: B/L LE; non-pitting Skin/Nails/Hair: intact Eyes/Nose/Mouth: RA Last BM: 10/24 per Epic Last Emesis: 10/21 x1 - medium, partially digested Meds: bumetanide, 1 mg, Oral, Daily isosorbide dinitrate, 20 mg, Oral, 3x Daily pantoprazole, 40 mg, Oral, Daily 30 min before breakfast docusate sodium, 100 mg, Oral, 2x Daily senna, 8.6 mg, Oral, At Bedtime Apixaban, 5 mg, Oral, 2x Daily Current Diet/ONS/EN/PN Order(s): Diet Order: Regular ONS Order(s): none PO Intake: 10/24 - 100% per [facility] Anthropometrics: Height: 6' 1 Current wt: 67.9 kg IBW: 83.6 kg Admit wt: 69.4 kg BMI: 19.74 Weight History: Kg Lbs 08/27/2024 73.936 kg 163 lb 08/31/2024 71.668 kg 158 lb 09/03/2024 74.7 kg 164 lb 10.9 oz 09/05/2024 72.53 kg 159 lb 14.4 oz 09/06/2024 72.712 kg 160 lb 4.8 oz 09/08/2024 71.396 kg 157 lb 6.4 oz 09/09/2024 72.848 kg 160 lb 9.6 oz 09/10/2024 71.215 kg 157 lb 09/11/2024 72.712 kg 160 lb 4.8 oz 09/17/2024 73.029 kg 161 lb 10/01/2024 75.479 kg 166 lb 6.4 oz 76.159 kg 167 lb 14.4 oz 10/02/2024 76.295 kg 168 lb 3.2 oz 10/05/2024 75.8 kg 167 lb 1.7 oz 10/06/2024 76.5 kg 168 lb 10.4 oz 10/18/2024 69.4 kg 153 lb 70.4 kg 155 lb 3.3 oz 10/20/2024 67.858 kg 149 lb 9.6 oz 7% wt loss x ~1 month (significant). Estimated Energy Needs: using 68 kg 7001-0378 kcal/d 30-35 kcal/kg 80-95 gm pro/d 1.2-1.4 gm/kg 2000 mL/d 30 mL/kg Assessment: 44 y/o Male with PMH of HFrEF (15%), LBBB, HTN, HLD, hx of DVT, CKD3, cirrhosis who presented to the ED for a cough since his previous hospital stay 09/30-10/06 which he was treated for a CAPwith Augmentin/doxycycline. In the ED lactate elevated at 5.3, NT proBNP over 60,000, admitted to the CICU for management of cardiogenic shock, SCHUYLER and treatment of HAP given CXR with worsening RLL PNA. Course difficult given pt declining care including blood work, medications, GOC discussion started in the CICU. Transferred out to [facility] in stable condition. Pt completed abx course 10/23. Course c/bpt continued intermittent refusal of medications. Pt reported continued cough and SOB - requested supplemental O2 despite good saturations. After discussion about need for diuretics to help alleviatefluid build up which is causing SOB, pt agreed to Bumex. RD Consult referred by [employer] for wt loss. Pt denied any recent changes in appetite/PO intake. Stated he lives with his girlfriend and some of her family members. He consumed some breakfast this am - grits, frosted flakes, grapes, and orange juice. Reported having emesis over the weekend after eating - unable to specify if emesis is related to food intake or if it just happened spontaneously. Pt also stated this happens sometimes, but then could not elaborate further on the topic. No BMP to review - noted pt refusing lab work. H/o vitamin D deficiency - recommend supplementation. No overt losses on exam, however did not perform NFPE. Pt does show significant wt loss over the past month. Pt declined oral supplements at this time. Plan of care ongoing. Please see recs below. Nutrition Problems At risk for malnutrition iso recent significant wt loss over the past month Nutrition Plan/Recommendations: - Regular Diet. Pt declined oral supplements at this time. Encourage PO intake. - Vitamins: Daily MV (Cerovite chewable). D3 2000IU daily. - Recommend prn Zofran given reported emesis over the weekend. Time spent on patient care: 45 minutes Maya Hoff MS, RD, LD, CNSC Personal pager: [phone] outbound call center representative nutrition pager [phone] (from 7am-7pm) [employer] Work Phone: [phone] Consult note* Maya Hoff RD - 10/25/2024 10:56 AM EDT Images from the original note were not included. Adult IP Nutrition Assessment Reason for RD Visit: Positive nutrition screen C - wt loss is allergic to: Allergies Allergen Reactions Torsemide Vomiting Reports did not tolerate, refuses to take again Sacubitril-Valsartan Vomiting Basic Metabolic Panel No lab values to display. CBC (last 3 years, up to 8 values) 10/21/2024 10/20/2024 10/18/2024 10/17/2024 10/06/2024 10/05/2024 10/02/2024 10/01/2024 10:01 AM 6:29 AM 1:39 PM 8:22 PM 4:56 AM 12:29 AM 6:37 PM 4:36 AM WBC 9.7 11.5 12.1 12.8 8.2 9.2 12.4 10.9 RBC 3.90 4.27 3.90 3.88 4.00 3.83 3.82 4.11 Hgb 13.8 14.9 13.3 13.6 13.8 13.3 13.2 14.2 Hct 40.8 44.2 40.1 40.2 40.8 39.7 39.1 42.8 MCV 105 104 103 104 102 104 102 104 RDW 17.0 17.2 16.4 16.3 15.1 15.2 14.5 14.9 Plt 162 142 135 153 206 195 212 227 LFT's (last 3 years, up to 8 values) 10/21/2024 10/20/2024 10/18/2024 09/30/2024 09/09/2024 09/08/2024 09/06/2024 09/06/2024 10:01 AM 6:29 AM 1:39 PM 4:21 PM 4:01 AM 1:10 AM 8:42 PM 9:40 AM T Prot 6.3 6.4 6.2 6.5 6.1 6.4 6.4 6.4 Albumin 3.1 3.3 3.3 3.8 3.6 3.7 3.7 3.6 D Bili 3.54 4.05 4.95 2.40 0.79 0.85 0.81 1.04 T Bili 6.4 7.9 8.8 5.7 2.2 2.2 2.4 2.7 Alk Phos 348 359 273 331 202 247 224 233 ALT 43 33 25 28 37 42 44 46 AST 60 50 31 19 24 27 25 25 Lipids (last 3 years, up to 8 values) 10/01/2024 08/27/2024 4:36 AM 10:35 AM Chol- esterol 152 204 TG 66 106 HDL 16 28 LDL 127 162 Chol / HDL 9.50 7.29 LDL / HDL 7.94 5.79 Non HDL 136 176 Lab Results Component Value Date HBA1C 6.1 (H) 10/01/2024 Fingerstick Glucose (last 72 hours) None Vitamin B12 (pg/mL) Date Value 08/27/2024 927 (H) No results found for: FOL Vitamin D, 25-OH (ng/mL) Date Value 08/27/2024 13.3 (L) No results found for: ZINC Nutrition Focused Physical Exam: - Pt declined NFPE Edema: B/L LE; non-pitting Skin/Nails/Hair: intact Eyes/Nose/Mouth: RA Last BM: 10/24 per Epic Last Emesis: 10/21 x1 - medium, partially digested Meds: bumetanide, 1 mg, Oral, Daily isosorbide dinitrate, 20 mg, Oral, 3x Daily pantoprazole, 40 mg, Oral, Daily 30 min before breakfast docusate sodium, 100 mg, Oral, 2x Daily senna, 8.6 mg, Oral, At Bedtime Apixaban, 5 mg, Oral, 2x Daily Current Diet/ONS/EN/PN Order(s): Diet Order: Regular ONS Order(s): none PO Intake: 10/24 - 100% per Epic Anthropometrics: Height: 6' 1 Current wt: 67.9 kg IBW: 83.6 kg Admit wt: 69.4 kg BMI: 19.74 Weight History: Kg Lbs 08/27/2024 73.936 kg 163 lb 08/31/2024 71.668 kg 158 lb 09/03/2024 74.7 kg 164 lb 10.9 oz 09/05/2024 72.53 kg 159 lb 14.4 oz 09/06/2024 72.712 kg 160 lb 4.8 oz 09/08/2024 71.396 kg 157 lb 6.4 oz 09/09/2024 72.848 kg 160 lb 9.6 oz 09/10/2024 71.215 kg 157 lb 09/11/2024 72.712 kg 160 lb 4.8 oz 09/17/2024 73.029 kg 161 lb 10/01/2024 75.479 kg 166 lb 6.4 oz 76.159 kg 167 lb 14.4 oz 10/02/2024 76.295 kg 168 lb 3.2 oz 10/05/2024 75.8 kg 167 lb 1.7 oz 10/06/2024 76.5 kg 168 lb 10.4 oz 10/18/2024 69.4 kg 153 lb 70.4 kg 155 lb 3.3 oz 10/20/2024 67.858 kg 149 lb 9.6 oz 7% wt loss x ~1 month (significant). Estimated Energy Needs: using 68 kg 3651-3303 kcal/d 30-35 kcal/kg 80-95 gm pro/d 1.2-1.4 gm/kg 2000 mL/d 30 mL/kg Assessment: 44 y/o Male with PMH of HFrEF (15%), LBBB, HTN, HLD, hx of DVT, CKD3, cirrhosis who presented to the ED for a cough since his previous hospital stay 09/30-10/06 which he was treated for a CAPwith Augmentin/doxycycline. In the ED lactate elevated at 5.3, NT proBNP over 60,000, admitted to the CICU for management of cardiogenic shock, SCHUYLER and treatment of HAP given CXR with worsening RLL PNA. Course difficult given pt declining care including blood work, medications, GOC discussion started in the CICU. Transferred out to [facility] in stable condition. Pt completed abx course 10/23. Course c/bpt continued intermittent refusal of medications. Pt reported continued cough and SOB - requested supplemental O2 despite good saturations. After discussion about need for diuretics to help alleviatefluid build up which is causing SOB, pt agreed to Bumex. RD Consult referred by [employer] for wt loss. Pt denied any recent changes in appetite/PO intake. Stated he lives with his girlfriend and some of her family members. He consumed some breakfast this am - grits, frosted flakes, grapes, and orange juice. Reported having emesis over the weekend after eating - unable to specify if emesis is related to food intake or if it just happened spontaneously. Pt also stated this happens sometimes, but then could not elaborate further on the topic. No BMP to review - noted pt refusing lab work. H/o vitamin D deficiency - recommend supplementation. No overt losses on exam, however did not perform NFPE. Pt does show significant wt loss over the past month. Pt declined oral supplements at this time. Plan of care ongoing. Please see recs below. Nutrition Problems At risk for malnutrition iso recent significant wt loss over the past month Nutrition Plan/Recommendations: - Regular Diet. Pt declined oral supplements at this time. Encourage PO intake. - Vitamins: Daily MV (Cerovite chewable). D3 2000IU daily. - Recommend prn Zofran given reported emesis over the weekend. Time spent on patient care: 45 minutes Maya Hoff MS, RD, LD, CNSC Personal pager: [phone] outbound call center representative nutrition pager [phone] (from 7am-7pm) * Georgia Abarca, PT - 10/25/2024 10:45 AM EDTAssociated Order(s): IP PHYSICAL THERAPY SERVICE REQUEST PHYSICAL THERAPY ACUTE EVALUATION Referral received, chart reviewed. Patient seen from 1045 to [address] [place] [address] for 23 minutes. Evaluation and treatment Admit date/time: 10/17/2024 6:40 PM Reason for Admit: 44 yo male presented to the ED reporting cough which has been presented since recent hospitalization (09/30/24 - 10/06/24). Recently, he has noticed blood tinged sputum which prompted his ED visit. He also endorses chest pain, dyspnea at rest, and worsening bilateral lower extremity edema. Diagnosis: Cardiogenic Shock Acute Decompensated Heart Failure HFrEF (EF 15%) Right Lower Lobe Pneumonia Hospital Acquired Pneumonia #SCHUYLER on CKD3 Cirrhosis Precautions: Full Code Moderate Falls Risk Regular Diet Initiate Progressive Mobility Procedure Procedures this admit: N/A Past Medical and Surgical History: PMH: HFrEF (15%), LBBB, HTN, HLD, hx of DVT, CKD3, cirrhosis. PSH: No past surgical history on file. Identification was verified by patient verbalizing his name and date of . Risks and Benefits of physical therapy: Patient informed of risks and benefits of treatment SUBJECTIVE: Patient Subjective:I don't need oxygen. Patient Identified Goal(s):Return home. 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 Patient denies using supplemental oxygen at home. Patient denies having any falls in the last 6 months. Home: 4 steps to enter with rails. 0 steps to bedroom/bathroom Assistance available: Lives with girlfriend and her brother. 20/01 assistance is available prn Equipment available: No DME OBJECTIVE: Appearance: Patient in bed with oxygen via NC @ 1 L/min Behavior: With encouragement, patient was agreeable to working with PT. Oriented x 3 Follows 2 step commands consistently Pain: Patient denies having any pain at this time. Pain Relief Interventions Implemented: None required; No pain at this time Passive ROM: Not formally tested however observed WFL for basic level of mobility Strength/Active ROM: Not formally tested however observed WFL for basic level of mobility Mobility: Sit to supine: independent via long sitting Supine to long sit: independent Long sit to short sit: independent Sitting balance: Good supported sitting at edge of bed Sit to stand: contact guard Transfers: contact guard stand pivot without assistive device Ambulation/Gait: 40 feet without assistive device with contact guard assistance. Patient with slow noah and increased lateral trunk sway. SpO2 Reading: After Mobilizing with PT: 100% on room air and HR: 115 bpm Endurance: Impaired Patient/Family Education: Instructed Patient in roles of therapy. Patient instructed on use of incentive spirometer and encouraged to perform 10 reps every hour as tolerated to increase efficiency of oxygen exchange. Patient encouraged to sit up in chair and ambulate as tolerated with staff assistance to minimize effects of inactivity. Patient reported understanding of instructions provided. Patient up in bed with call light in reach. DME: With Patients permission ordered no equipment via adicate timeads Order. If any questions contact [facility] DME Provider at [phone]. 10/25/2024 6 Clicks Basic Mobility PT Difficulty turning over in bed 3 Difficulty sitting down and standing up from a chair with arms 3 Difficulty moving from lying on back to sitting on the side of the bed 3 Help from another person moving to and from bed to a chair 3 Help from another person to walk in hospital room 3 Help from another person climbing 3-5 steps with a railing 3 PT 6 Clicks Score 18 6 Click Score Guidelines: 1 - Total = Requires total assistance, or cannot do at all. 2 - A lot = Requires a lot of help (maximun to moderate assistance) Can use assistive devices. 3 - A little = Requires a little help (supervision, minimal assistance) Can use assistive devices. 4 - None = Does not require any help and does the activity independently. Can use assistive devices. ASSESSMENT: Carlo Medina is a 44 year old yo male admitted with above diagnoses. Patient presents with a decline from his previous independent baseline functional level. Patient is functionally appropriate for discharge home once medically cleared. Will continue to follow patient while in hospital as appropriate. Problems: Decreased ROM/strength Decreased functional mobility Decreased endurance Decreased balance Decreased education in exercise/precautions Rehabilitation Potential: Good Goals (to be achieved by 5 days or by discharge from acute care): Patient will achieve acceptable level of pain control to allow participation in therapy. Patient will perform sit to/from stand with no device with modified independent transfer bed to/from chair with no device with modified independent Patient will ambulate 150 feet with no device with modified independent Patient will ascend/descend 4 stairs with 1 rail(s) and no device with modified independent Patient will increase ROM/Strength/Endurance/Balance to allow for above goals. PLAN OF CARE: Frequency: Patient to be seen 3-5 times a week Interventions: Functional mobility ROM/Strengthening Home exercise program Discharge planning and equipment ordering as needed Patient /Family education The evaluation findings and treatment plan were discussed with the patient/family. The patient/family indicated understanding and agreement with the plan. Georgia Abarca PT NA = Not Assessed, I = Independent, ND = Modified Independent, Sup = Supervised, Set up = Physical Assistance for Set-up Only, Min = Minimal Assistance, Mod = Moderate Assistance, Max = Max assistance; Dep = Dependent; AROM = Active Range of Motion; PROM = Passive Range of Motion; MMT = Manual Muscle Test; LE = Lower Extremity * Mecca Joe - 10/22/2024 1:36 PM EDT Images from the original note were not included. Dietitian vs DietaryTech: Dietary TechDiet Body Make Up Artist Nutrition Screening Reason for visit: LOS 5 or more days Assessment Admitting Diagnosis: No admission diagnoses are documented for this encounter. High risk nutrition diagnosis: No - no points Past Medical History: Past Medical History: Diagnosis Date Cardiogenic shock (HCC) 10/18/2024 Chronic systolic heart failure (HCC) DVT (deep venous thrombosis) (HCC) Hypercholesteremia Iron deficiency anemia Stage 2 chronic kidney disease Vitamin D deficiency Food Allergies: None Labs: LFT's (last 3 years, up to 8 values) 10/21/2024 10/20/2024 10/18/2024 09/30/2024 09/09/2024 09/08/2024 09/06/2024 09/06/2024 10:01 AM 6:29 AM 1:39 PM 4:21 PM 4:01 AM 1:10 AM 8:42 PM 9:40 AM T Prot 6.3 6.4 6.2 6.5 6.1 6.4 6.4 6.4 Albumin 3.1 3.3 3.3 3.8 3.6 3.7 3.7 3.6 D Bili 3.54 4.05 4.95 2.40 0.79 0.85 0.81 1.04 T Bili 6.4 7.9 8.8 5.7 2.2 2.2 2.4 2.7 Alk Phos 348 359 273 331 202 247 224 233 ALT 43 33 25 28 37 42 44 46 AST 60 50 31 19 24 27 25 25 Albumin: Greater than 3 - no points Skin Integrity: No pressure ulcers at this time - no points Fluid Accumulation: Edema-bilateral le, non-pitting Diet Order: Regular % PO Intake: 100% Intake Difficulties: None - 0 points 6' 1 Weight Only Weight 08/27/2024 9:47 AM 163 lb 08/31/2024 2:49 PM 158 lb 09/03/2024 4:17 PM 164 lb 10.9 oz 09/05/2024 6:00 AM 159 lb 14.4 oz 09/06/2024 6:00 AM 160 lb 4.8 oz 09/08/2024 5:00 AM 157 lb 6.4 oz 09/09/2024 12:12 AM 160 lb 9.6 oz 09/10/2024 4:12 AM 157 lb 09/11/2024 12:00 AM 160 lb 4.8 oz 09/17/2024 11:35 AM 161 lb 10/01/2024 5:22 AM 166 lb 6.4 oz 10/01/2024 7:45 PM 167 lb 14.4 oz 10/02/2024 5:00 AM 168 lb 3.2 oz 10/05/2024 5:02 AM 167 lb 1.7 oz 10/06/2024 10:00 AM 168 lb 10.4 oz 10/18/2024 1:00 AM 153 lb 10/18/2024 7:30 AM 155 lb 3.3 oz 10/20/2024 5:00 PM 149 lb 9.6 oz BMI Screening value: 18.5 to 20.9 - 0 points % Weight Loss: 6.8%-1 month Weight Loss Screening Value: Greater than 5% in 1 month - 7 points Comments: Intake-appetite good, no food allergies. Weights with significant loss noted. Refer to R.D. Number of Points: 7 Nutritional Plan of Care: Greater than or equal to 7 points: Patient is at high nutrition risk. Refer to RD. Will continue to follow, Time spent on patient care: 30 minutes PAO Cole (Nutrition) Pager #[phone]. documented in this [id number] Consult note* Georgia Abarca, PT - 10/25/2024 10:45 AM EDTAssociated Order(s): IP PHYSICAL THERAPY SERVICE REQUEST PHYSICAL THERAPY ACUTE EVALUATION Referral received, chart reviewed. Patient seen from 1045 to 1108 on [address] unit for 23 minutes. Evaluation and treatment Admit date/time: 10/17/2024 6:40 PM Reason for Admit: 44 yo male presented to the ED reporting cough which has been presented since recent hospitalization (09/30/24 - 10/06/24). Recently, he has noticed blood tinged sputum which prompted his ED visit. He also endorses chest pain, dyspnea at rest, and worsening bilateral lower extremity edema. Diagnosis: Cardiogenic Shock Acute Decompensated Heart Failure HFrEF (EF 15%) Right Lower Lobe Pneumonia Hospital Acquired Pneumonia #SCHUYLER on CKD3 Cirrhosis Precautions: Full Code Moderate Falls Risk Regular Diet Initiate Progressive Mobility Procedure Procedures this admit: N/A Past Medical and Surgical History: PMH: HFrEF (15%), LBBB, HTN, HLD, hx of DVT, CKD3, cirrhosis. PSH: No past surgical history on file. Identification was verified by patient verbalizing his name and date of . Risks and Benefits of physical therapy: Patient informed of risks and benefits of treatment SUBJECTIVE: Patient Subjective:I don't need oxygen. Patient Identified Goal(s):Return home. 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 Patient denies using supplemental oxygen at home. Patient denies having any falls in the last 6 months. Home: 4 steps to enter with rails. 0 steps to bedroom/bathroom Assistance available: Lives with girlfriend and her brother. 20/01 assistance is available prn Equipment available: No DME OBJECTIVE: Appearance: Patient in bed with oxygen via NC @ 1 L/min Behavior: With encouragement, patient was agreeable to working with PT. Oriented x 3 Follows 2 step commands consistently Pain: Patient denies having any pain at this time. Pain Relief Interventions Implemented: None required; No pain at this time Passive ROM: Not formally tested however observed WFL for basic level of mobility Strength/Active ROM: Not formally tested however observed WFL for basic level of mobility Mobility: Sit to supine: independent via long sitting Supine to long sit: independent Long sit to short sit: independent Sitting balance: Good supported sitting at edge of bed Sit to stand: contact guard Transfers: contact guard stand pivot without assistive device Ambulation/Gait: 40 feet without assistive device with contact guard assistance. Patient with slow noah and increased lateral trunk sway. SpO2 Reading: After Mobilizing with PT: 100% on room air and HR: 115 bpm Endurance: Impaired Patient/Family Education: Instructed Patient in roles of therapy. Patient instructed on use of incentive spirometer and encouraged to perform 10 reps every hour as tolerated to increase efficiency of oxygen exchange. Patient encouraged to sit up in chair and ambulate as tolerated with staff assistance to minimize effects of inactivity. Patient reported understanding of instructions provided. Patient up in bed with call light in reach. DME: With Patients permission ordered no equipment via adicate timeads Order. [facility] any [facility] at [phone]. 10/25/2024 6 Clicks Basic Mobility PT Difficulty turning over in bed 3 Difficulty sitting down and standing up from a chair with arms 3 Difficulty moving from lying on back to sitting on the side of the bed 3 Help from another person moving to and from bed to a chair 3 Help from another person to walk in hospital room 3 Help from another person climbing 3-5 steps with a railing 3 PT 6 Clicks Score 18 6 Click Score Guidelines: 1 - Total = Requires total assistance, or cannot do at all. 2 - A lot = Requires a lot of help (maximun to moderate assistance) Can use assistive devices. 3 - A little = Requires a little help (supervision, minimal assistance) Can use assistive devices. 4 - None = Does not require any help and does the activity independently. Can use assistive devices. ASSESSMENT: Carlo Medina is a 44 year old yo male admitted with above diagnoses. Patient presents with a decline from his previous independent baseline functional level. Patient is functionally appropriate for discharge home once medically cleared. Will continue to follow patient while in hospital as appropriate. Problems: Decreased ROM/strength Decreased functional mobility Decreased endurance Decreased balance Decreased education in exercise/precautions Rehabilitation Potential: Good Goals (to be achieved by 5 days or by discharge from acute care): Patient will achieve acceptable level of pain control to allow participation in therapy. Patient will perform sit to/from stand with no device with modified independent transfer bed to/from chair with no device with modified independent Patient will ambulate 150 feet with no device with modified independent Patient will ascend/descend 4 stairs with 1 rail(s) and no device with modified independent Patient will increase ROM/Strength/Endurance/Balance to allow for above goals. PLAN OF CARE: Frequency: Patient to be seen 3-5 times a week Interventions: Functional mobility ROM/Strengthening Home exercise program Discharge planning and equipment ordering as needed Patient /Family education The evaluation findings and treatment plan were discussed with the patient/family. The patient/family indicated understanding and agreement with the plan. Georgia Abarca PT NA = Not Assessed, I = Independent, ND = Modified Independent, Sup = Supervised, Set up = Physical Assistance for Set-up Only, Min = Minimal Assistance, Mod = Moderate Assistance, Max = Max assistance; Dep = Dependent; AROM = Active Range of Motion; PROM = Passive Range of Motion; MMT = Manual Muscle Test; LE = Lower Extremity [place] [id number] Evaluation + Plan note* Assessment & Plan Note - Sara Tineo MD - 10/24/2024 12:08 PM EDTAssociated Problem(s): Pneumonia of right lower lobe due to infectious organism No leukocytosis, afebrile, stable on room air, procal elevated to 16.8 on admission Given recent hospitalization, treating for HAP - complete course of linezolid and cipro today (d7/7) [place] [id number] Evaluation + Plan note* Assessment & Plan Note - Sara Tineo MD - 10/24/2024 12:08 PM EDTAssociated Problem(s): Acute on chronic HFrEF (heart failure with reduced ejection fraction) (HCC) Echo with LVEF 15% - Bumex 1 mg daily - patient willing to take today - isordil 20 mg tid - patient willing to take today - patient declining further medication titration - monitor on tele if agreeable - follow up with heart failure as an outpatient - continue GOC discussions, ?psych consult [place] [id number] Evaluation + Plan note* Assessment & Plan Note - Sara Tineo MD - 10/24/2024 12:08 PM EDTAssociated Problem(s): Acute kidney injury superimposed on stage 3b chronic kidney disease Max creatinine this stay 3.2, down trending to 1.46 which appears to be better than baseline - avoid nephrotoxic agents - repeat bmp as patient will allow [id number] Evaluation + Plan note* Assessment & Plan Note - Sara Tineo MD - 10/24/2024 12:08 PM EDTAssociated Problem(s): Cirrhosis (HCC) With hyperbili - liver clinic as an outpatient - HFP when patient willing [id number] Evaluation + Plan note* Assessment & Plan Note - Sara Tineo MD - 10/24/2024 12:08 PM EDTAssociated Problem(s): Hypomagnesemia Level 1.5 10/21 - only agreeable to mag oxide - repeat level in am T [id number] Evaluation + Plan note* Assessment & Plan Note - Sara Tineo MD - 10/24/2024 12:08 PM EDTAssociated Problem(s): Hypokalemia Level 3.2 10/21 - he declined potassium PO and IV again today - BMP in am T [id number] Evaluation + Plan note* Assessment & Plan Note - Sara Tineo MD - 10/24/2024 12:08 PM EDTAssociated Problem(s): Acute deep vein thrombosis (DVT) of lower extremity (HCC) - apixaban 5 mg po bid [id number] Evaluation + Plan note* Assessment & Plan Note - Sara Tineo MD - 10/23/2024 11:42 AM EDTAssociated Problem(s): Cirrhosis (HCC) With hyperbili - liver clinic as an outpatient - [facility] when patient willing [id number] Evaluation + Plan note* Assessment & Plan Note - Sara Tineo MD - 10/23/2024 11:42 AM EDTAssociated Problem(s): Hypomagnesemia Level 1.5 10/21 - only agreeable to mag oxide - repeat level in am [id number] Evaluation + Plan note* Assessment & Plan Note - Sara Tineo MD - 10/23/2024 11:42 AM EDTAssociated Problem(s): Hypokalemia Level 3.2 10/21 - he declined potassium PO and IV again today - BMP in am [id number] Evaluation + Plan note* Assessment & Plan Note - Sara Tineo MD - 10/23/2024 11:42 AM EDTAssociated Problem(s): Acute deep vein thrombosis (DVT) of lower extremity (HCC) - apixaban 5 mg po bid [id number] Evaluation + Plan note* Assessment & Plan Note - Sara Tineo MD - 10/23/2024 11:42 AM EDTAssociated Problem(s): Pneumonia of right lower lobe due to infectious organism No leukocytosis, afebrile, stable on room air, procal elevated to 16.8 on admission Given recent hospitalization, treating for HAP - complete course of linezolid and cipro today (d7/7) [id number] Evaluation + Plan note* Assessment & Plan Note - Sara Tineo MD - 10/23/2024 11:42 AM EDTAssociated Problem(s): Acute on chronic HFrEF (heart failure with reduced ejection fraction) (HCC) Echo with LVEF 15% - Bumex 1 mg daily - patient willing to take today - isordil 20 mg tid - patient willing to take today - patient declining further medication titration - monitor on tele if agreeable - follow up with heart failure as an outpatient - continue GOC discussions, ?psych consult [id number] Evaluation + Plan note* Assessment & Plan Note - Sara Tineo MD - 10/23/2024 11:42 AM EDTAssociated Problem(s): Acute kidney injury superimposed on stage 3b chronic kidney disease Max creatinine this stay 3.2, down trending to 1.46 which appears to be better than baseline - avoid nephrotoxic agents - repeat bmp as patient will allow [id number] Consult note* Mecca Joe - 10/22/2024 1:36 PM EDT Images from the original note were not included. Dietitian vs DietaryTech: Dietary TechDiet Body Make Up Artist Nutrition Screening Reason for visit: LOS 5 or more days Assessment Admitting Diagnosis: No admission diagnoses are documented for this encounter. High risk nutrition diagnosis: No - no points Past Medical History: Past Medical History: Diagnosis Date Cardiogenic shock (HCC) 10/18/2024 Chronic systolic heart failure (HCC) DVT (deep venous thrombosis) (HCC) Hypercholesteremia Iron deficiency anemia Stage 2 chronic kidney disease Vitamin D deficiency Food Allergies: None Labs: LFT's (last 3 years, up to 8 values) 10/21/2024 10/20/2024 10/18/2024 09/30/2024 09/09/2024 09/08/2024 09/06/2024 09/06/2024 10:01 AM 6:29 AM 1:39 PM 4:21 PM 4:01 AM 1:10 AM 8:42 PM 9:40 AM T Prot 6.3 6.4 6.2 6.5 6.1 6.4 6.4 6.4 Albumin 3.1 3.3 3.3 3.8 3.6 3.7 3.7 3.6 D Bili 3.54 4.05 4.95 2.40 0.79 0.85 0.81 1.04 T Bili 6.4 7.9 8.8 5.7 2.2 2.2 2.4 2.7 Alk Phos 348 359 273 331 202 247 224 233 ALT 43 33 25 28 37 42 44 46 AST 60 50 31 19 24 27 25 25 Albumin: Greater than 3 - no points Skin Integrity: No pressure ulcers at this time - no points Fluid Accumulation: Edema-bilateral le, non-pitting Diet Order: Regular % PO Intake: 100% Intake Difficulties: None - 0 points 6' 1 Weight Only Weight 08/27/2024 9:47 AM 163 lb 08/31/2024 2:49 PM 158 lb 09/03/2024 4:17 PM 164 lb 10.9 oz 09/05/2024 6:00 AM 159 lb 14.4 oz 09/06/2024 6:00 AM 160 lb 4.8 oz 09/08/2024 5:00 AM 157 lb 6.4 oz 09/09/2024 12:12 AM 160 lb 9.6 oz 09/10/2024 4:12 AM 157 lb 09/11/2024 12:00 AM 160 lb 4.8 oz 09/17/2024 11:35 AM 161 lb 10/01/2024 5:22 AM 166 lb 6.4 oz 10/01/2024 7:45 PM 167 lb 14.4 oz 10/02/2024 5:00 AM 168 lb 3.2 oz 10/05/2024 5:02 AM 167 lb 1.7 oz 10/06/2024 10:00 AM 168 lb 10.4 oz 10/18/2024 1:00 AM 153 lb 10/18/2024 7:30 AM 155 lb 3.3 oz 10/20/2024 5:00 PM 149 lb 9.6 oz BMI Screening value: 18.5 to 20.9 - 0 points % Weight Loss: 6.8%-1 month Weight Loss Screening Value: Greater than 5% in 1 month - 7 points Comments: Intake-appetite good, no food allergies. Weights with significant loss noted. Refer to R.D. Number of Points: 7 Nutritional Plan of Care: Greater than or equal to 7 points: Patient is at high nutrition risk. Refer to RD. Will continue to follow, Time spent on patient care: 30 minutes PAO Cole (Nutrition) Pager #[phone]. [id number] Evaluation + Plan note* Assessment & Plan Note - Sara Tineo MD - 10/22/2024 10:42 AM EDTAssociated Problem(s): Pneumonia of right lower lobe due to infectious organism No leukocytosis, afebrile, stable on room air, procal elevated to 16.8 on admission Given recent hospitalization, treating for HAP - continue linezolid and cipro (d6/7) [id number] Evaluation + Plan note* Assessment & Plan Note - Sara Tineo MD - 10/22/2024 10:42 AM EDTAssociated Problem(s): Acute on chronic HFrEF (heart failure with reduced ejection fraction) (HCC) Echo with LVEF 15% - Bumex 1 mg daily - will restart today - isordil 20 mg tid - patient refusing - patient declining further medication titration - monitor on tele if agreeable - follow up with heart failure as an outpatient - continue GOC discussions [id number] Evaluation + Plan note* Assessment & Plan Note - Sara Tineo MD - 10/22/2024 10:42 AM EDTAssociated Problem(s): Cirrhosis (HCC) With hyperbili - liver clinic as an outpatient - HFP when patient willing [id number] Evaluation + Plan note* Assessment & Plan Note - Sara Tineo MD - 10/22/2024 10:42 AM EDTAssociated Problem(s): Hypomagnesemia Level 1.5 10/21 - only agreeable to mag oxide - repeat level in am [id number] Evaluation + Plan note* Assessment & Plan Note - Sara Tineo MD - 10/22/2024 10:42 AM EDTAssociated Problem(s): Hypokalemia Level 3.2 10/21 - he declined potassium PO and IV again today - BMP in am [id number] Evaluation + Plan note* Assessment & Plan Note - Sara Tineo MD - 10/22/2024 7:22 AM EDTAssociated Problem(s): Acute kidney injury superimposed on stage 3b chronic kidney disease Max creatinine this stay 3.2, down trending to 1.46 which appears to be better than baseline - avoid nephrotoxic agents - repeat bmp in am [id number] Evaluation + Plan note* Assessment & Plan Note - Sara Tineo MD - 10/22/2024 7:22 AM EDTAssociated Problem(s): Acute deep vein thrombosis (DVT) of lower extremity (HCC) - apixaban 5 mg po bid [id number] Evaluation + Plan note* Assessment & Plan Note - Leatha Mckeon APRN-CNP - 10/21/2024 6:01 PM EDTAssociated Problem(s): Pneumonia of right lower lobe due to infectious organism No leukocytosis, afebrile, stable on room air, procal elevated to 16.8 Given recent hospitalization, treating for HAP - continue linezolid and cipro [id number] Evaluation + Plan note* Assessment & Plan Note - Leatha Mckeon APRN-CNP - 10/21/2024 6:01 PM EDTAssociated Problem(s): Cardiogenic shock (HCC) (Resolved 10/21/2024) Managed in the cicu, at this time has resolved [id number] Evaluation + Plan note* Assessment & Plan Note - Leatha Mckeon APRN-CNP - 10/21/2024 6:01 PM EDTAssociated Problem(s): Acute on chronic HFrEF (heart failure with reduced ejection fraction) (HCC) Echo with LVEF 15% - Bumex 1 mg daily on hold - consider restarting in am - isordil 20 mg tid - patient declining further medication titration - monitor on tele if agreeable - follow up with heart failure as an outpatient - continue GOC discussion [id number] Evaluation + Plan note* Assessment & Plan Note - Leatha Mckeon APRN-CNP - 10/21/2024 6:01 PM EDTAssociated Problem(s): Acute kidney injury superimposed on stage 3b chronic kidney disease Max creatinine this stay 3.2, down trending to 1.46 which appears to be better than baseline - avoid nephrotoxic agents - repeat bmp in am [id number] Evaluation + Plan note* Assessment & Plan Note - Leatha Mckeon APRN-CNP - 10/21/2024 6:01 PM EDTAssociated Problem(s): Cirrhosis (HCC) With hyperbili - liver clinic as an outpatient - HFP in am [id number] Evaluation + Plan note* Assessment & Plan Note - Leatha Mckeon APRN-CNP - 10/21/2024 6:01 PM EDTAssociated Problem(s): Hypomagnesemia Level 1.5 this am - only agreeable to mag oxide - repeat level in am T [id number] Evaluation + Plan note* Assessment & Plan Note - Leatha Mckeon APRN-CNP - 10/21/2024 6:01 PM EDTAssociated Problem(s): Hypokalemia Level 3.2 - he declined potassium PO and IV - BMP in am [id number] Evaluation + Plan note* Assessment & Plan Note - Leatha Mckeon APRN-CNP - 10/21/2024 6:01 PM EDTAssociated Problem(s): Acute deep vein thrombosis (DVT) of lower extremity (HCC) - apixaban 5 mg po bid [id number] Hospital Note* Hospital Course - Anshul Laird APRN-CNP - 10/21/2024 5:42 PM EDT Carlo Medina is a 44 year old male with a PMH of HFrEF (15%), LBBB, HTN, HLD, hx of DVT, CKD3, cirrhosis. Presented to the ED for a cough since his previous hospital stay 09/30-10/06 which he was treated for a CAP with Augmentin/doxycycline. IN the ED lactate elevated at 5.3, NT proBNP over 60,000, admitted to the CICU for management of cardiogenic shock, SCHUYLER and treatment of HAP given CXR with worsening RLL PNA. Course difficult given patient declining care including blood work, medications, GOC discussion started in the CICU. Transferred out to [facility] in stable condition. Patient completed abxcourse 10/23. Course complicated by patient continued intermittent refusal of medications. 10/25 Attempting lab work on the patient and is agreeable to take his medications today. If stable lab work, will start SLGT2 inhibitor. Nursing staff and nursing aid attempted blood work with no success. Pending IV team to get labs. [id number] Progress note* Transfer Note - Lucia LarryDO yany - 10/21/2024 11:43 AM EDT Images from the original note were not included. Provider Called Report To (Enter Provider Name, Service, and Time): Dr. Tineo, Medicine Team 6, 15:35 [facility] Transfer Note Hospital Course: Carlo Medina is a 44 year old male with a PMH of HFrEF (15%), LBBB, HTN, HLD, hx of DVT, CKD3, cirrhosis. Presented for cough present since past hospitalization in beginning of this month. Noticed red tinged sputum, which prompted ED visit. No sick conttacts. Was recently treated for CAP during 09/30-10/06 admission with augmentin/doxycycline. Admitted to CICU for cardiogenic shock and HAP. Has been refusing most labs, and intermittently accepting antibiotics, HF therapies. Discussion ongoing regarding treatment that pt wishes to receive. SCHUYLER, lactic acidosis are improving on repeat labs with diuresis and treatment of HAP. HAP being treated with ciprofloxacin/linezolid. Transfer to med tele. Vitals: BP 89/74 (BP Location: left arm) Pulse 106 Temp 98.1 F (36.7 C) (Oral) Resp 19 Ht 6' 1 (1.854 m) Wt 149 lb 9.6 oz (67.9 kg) SpO2 99% BMI 19.74 kg/m Current Meds: Scheduled: potassium chloride 40 mEq One Time Dose potassium chloride 40 mEq One Time Dose ciprofloxacin 750 mg 2x Daily linezolid 600 mg 2x Daily isosorbide dinitrate 20 mg 3x Daily pantoprazole 40 mg Daily 30 min before breakfast docusate sodium 100 mg 2x Daily senna 8.6 mg At Bedtime Apixaban 5 mg 2x Daily PRN: acetaminophen 650 mg Q4H PRN guaiFENesin 200 mg Q4H PRN nitroglycerin 0.4 mg Q5 Min PRN To Do: []Possible palliative care consult. CICU team began GOC conversations 10/21 as documented in progress note []Continue HAP coverage with linezolid and ciprofloxacin []Continue to optimize GDMT pending pt goals Larry Myers DO Internal Medicine, PGY-2 [employer] Work Phone: [phone] NoteSecond attempt to collect stat labs, patient refused, pt refused medication ordered for this am , education provided, pt verbalized understanding and continued to refused, MD made aware, not further orders receivedThe [employer] [id number] Emergency department Note* Shari Caal, RUFINA - 10/18/2024 3:32 AM EDT notified of critical LACTATE value of 4.7. Hard copy of results given to . [id number] Emergency department Note* Shari Caal EMR - 10/18/2024 3:32 AM EDT notified of critical LACTATE value of 4.7. Hard copy of results given to . * Niko Villalpando EMR - 10/18/2024 1:[address] RSEENDEZ notified of critical LACTATE value of 5.3. Hard copy of results given to Dr. RESENDEZ. * Vipul Jose RN - 10/17/2024 10:00 PM EDT Delay in antibiotics d/t no IV access * Maurice Wise MD - 10/17/2024 9:05 PM EDT 44 year old male with a hx of HFrEf (15%) presenting to the ED with cough. More like hemoptysis. JVD present. Diminisehd on right. CXR and needs to come in Cxr Interval Progress: Please see previous provider's note for full history and physical exam. Under my care, I disucussed the case with the med res team which raised concern for the patient's EF. The patient was re-evaluated and found to have cool extermities. The patient's lactate was then measured which was elevated. Given lactate, phys exam, and BNP there is concern for cardiogenic shock. The patient was then admitted to CCU . Course: ED Course as of 10/18/24 0335 Sun Oct 17, 20242040 Complete Blood Count W/Diff(!): WBC 12.8(!) RBC 3.88(!) Hemoglobin 13.6(!) Hematocrit 40.2(!) MCV 104(!) MCH 34.9(!) MCHC 33.8 Platelet 153 RDW-CV% 16.3(!) MPV 9.3 Neutrophils 85.5(!) Neutrophil # 10.98(!) Lymphocytes 7.8(!) Lymph Absolute 1.01 Monocytes 6.4 Monocyte Absolute 0.82 Eosinophil 0.0(!) Eosinophil Absolute 0.00 Basophils 0.3 Basophil # 0.03 MDW 20 Leukocytosis, similar anemia compared to prior [AH] 2041 I personally interpreted this ECG: sinus tachy, similar RBBB and TWI in lead 3 compared to prior [] 2056 INR(!): 2.14 [] 2119 CXR PORTABLE 1 VIEW IMPRESSION: Interval worsening of right lower lobe pneumonia. Short-term follow-up is recommended to document resolution. [] ED Course User Index [] Vic Sandhu MD Clinical Impression Diagnosis Comment Pneumonia of right lower lobe due to infectious organism [J18.9] Cardiogenic shock (HCC) [R57.0] Pneumonia due to infectious organism, unspecified laterality, unspecified part of lung [J18.9] Maurice Wise MD * Vic Sandhu MD - 10/17/2024 6:47 PM EDT Images from the original note were not included. EMERGENCY DEPARTMENT - VISIT NOTE HISTORY OF PRESENT ILLNESS Chief Complaint Patient presents with Cough X couple wks. Coughing up blood x couple days. C/o left side rib pain.On eloquis HIPAA: Verbal permission granted from patient to discuss case, including protected health information, in front of family / friends in room at the time of the evaluation. Genetics Physician: not needed - patient preferred language is Moroccan. HPI Pt is a 44 year old male w/ PMH of HFrEF 15%, HTN, HLD, DVT on eliquis, CKD2, cirrhosis who p/w a couple weeks of cough that has been persistent since admission for PNA. States he completed his antibiotics and denies fever, sick contacts. Reports he has been coughing up blood over the last couple days. States he had blood-tinged sputum previously which has progressed to more substantial amount ofblood. Reports BLE swelling and CP and dyspnea at rest. Denies worsening with exertion. Reports adherence to home medications including Eliquis. Chart Review: Admitted on 09/30/24 for management of ADHF in setting of CAP REVIEW OF SYSTEMS Review of Systems Negative except for above PAST HISTORY Pertinent Past History: Past Medical History: Diagnosis Date Chronic systolic heart failure (HCC) DVT (deep venous thrombosis) (HCC) Hypercholesteremia Iron deficiency anemia Stage 2 chronic kidney disease Vitamin D deficiency Pertinent Family History: No family history on file. Pertinent Social History: Social History Tobacco Use Smoking status: Never Smokeless tobacco: Never PHYSICAL EXAM Vitals Recorded in This Encounter 10/17/2024 [id number]/20242104 BP: 101/80 113/91 Pulse: 115 101 Resp: 18 18 Temp: 97.5 F (36.4 C) -- Temp src: Oral -- SpO2: 100 % 100 % Pain Score: 10 -- Constitutional: Nursing triage notes reviewed, Vital signs reviewed, Patient is alert, awake HENT: Mucous membranes are moist Eyes: EOMI Neck: Supple, JVD Lungs: mild tachypnea, diminished breath sounds on R Heart: regular tachycardia, 2+ radial pulses Abdomen: Soft, NTND, no rebound Extremities: Normal peripheral perfusion, 2+ pitting edema in BLE Neuro: Normal speech, alert Skin: No rashes Psych: Normal affect, Cooperative MEDICAL DECISION MAKING and ED COURSE Nursing triage and assessment notes reviewed and incorporated. Review of External (Non- ED) Notes: see HPI See ED course for discussion with consultants/admission team/other providers Medication Management: Medications prescribed - see visit medications. Independent test interpretation: See ED course for ECGs, labs, and imaging that I personally reviewed and interpreted Patient seen under the supervision of EM attending: Phoebe [facility] Course: ED Course as of 10/17/242123 Sun Oct 17, 20242040 Complete Blood Count W/Diff(!): WBC 12.8(!) RBC 3.88(!) Hemoglobin 13.6(!) Hematocrit 40.2(!) MCV 104(!) MCH 34.9(!) MCHC 33.8 Platelet 153 RDW-CV% 16.3(!) MPV 9.3 Neutrophils 85.5(!) Neutrophil # 10.98(!) Lymphocytes 7.8(!) Lymph Absolute 1.01 Monocytes 6.4 Monocyte Absolute 0.82 Eosinophil 0.0(!) Eosinophil Absolute 0.00 Basophils 0.3 Basophil # 0.03 MDW 20 Leukocytosis, similar anemia compared to prior [AH] 2041 I personally interpreted this ECG: sinus tachy, similar RBBB and TWI in lead 3 compared to prior [] 2056 INR(!): 2.14 [] 2119 CXR PORTABLE 1 VIEW IMPRESSION: Interval worsening of right lower lobe pneumonia. Short-term follow-up is recommended to document resolution. [] ED Course User Index [] Vic Sandhu MD Assessment & Plan: Carlo Medina 44 year old male with pmh as noted above presented to the emergency department forpersistent cough and hemoptysis. Lab work and imaging as noted above in ED course. This is likely persistent RLL PNA causing cough w/ hemoptysis and diminished breath sounds on R given CXR above. Pt likely has subsequent ADHF given evidence of volume overload on exam. Pt's abx broadened compared toprior admission. Lower c/f PE given reported adherence to eliquis. At time of signout, pending [facility] admission. IMPRESSION AND DISPOSITION Clinical Impression Diagnosis Comment Pneumonia of right lower lobe due to infectious organism [J18.9] Patient signed out to PD at 2100. Pt signed out without complications. Vic Sandhu MD Cosigned by Phoebe [place]erson MD at 10/18/2024 10:41 PM EDT Associated attestation - Phoebe Sanderson MD - 10/18/2024 10:41 PM EDT ATTENDING NOTE I saw and evaluated the patient. I personally obtained the reardon and critical portions of the historyand physical exam. I reviewed the resident's documentation and discussed the patient with the resident. I agree with the resident's medical decision making as documented in the resident's note. Phoebe Sanderson MD documented in this [id number] History and physical note* Jim Stockton MD - 10/18/2024 2:02 AM EDT Images from the original note were not included. [facility] Cardiac Intensive Care Unit - H&P Note Carlo Medina Age [age] year old male ROOM: [place] [address] Admitted: 10/17/2024 6:40 PM Hospital Day: 2 History of Present Illness: Carlo Medina is a 44 year old male admitted on 10/17/2024 with a PMH of HFrEF (15%), LBBB, HTN, HLD, hx of DVT, CKD3, cirrhosis. Patient presented to the ED reporting cough which has been presented since recent hospitalization (09/30/24 - 10/06/24). Recently, he has noticed blood tinged sputum whichprompted his ED visit. He also endorses chest pain, dyspnea at rest, and worsening bilateral lower extremity edema. He reports compliance with all home medication. No recent fevers, chills, sick contacts, nausea, vomiting, or diarrhea. During recent hospitalization, patient was initially admitted to Family Medicine inpatient team formanagement of ADHF likely secondary to CAP. However, ultimately required transfer to the CICU with concern for cardiogenic shock. While in the CICU, the patient refused IV therapies and invasive interventions after an unsuccessful right heart catheterization. Multiple discussion were had regarding the potential for further decompensation and potential sudden cardiac however the patient continued to refuse treatment. He was medically optimized and discharged with bumex/isodirl/eliquis. CAPmanaged with a course of augmentin/doxycycline. Currently, pt endorses cough and dyspnea at rest. Patient provided 2L NC for comfort. Pt admitted to CICU for management of cardiogenic shock. ED Course: Vitals: Temp 97.5, HR 115, BP 101/80, SpO2 100% Labs: - BMP: Glucose: 106, Na: 137, K: 4.7, M.9, Cr: 2.80 (baseline 2.0) - CBC: WBC: 12.8, Hgb: 13.6 (baseline 13.5), Platelet: 153 - ALT: N/A, AST: N/A, Alk Phos: N/A - ESR: N/A, CRP: N/A - Lactate: 4.7 - Troponin: 49 - BNP N/A - TSH: N/A EKG: Sinus Tachycardia, Right [place] Deviation, RBBB Imaging: - CXR 10/17/24 demonstrating interval worsening RLL PNA Interventions: Vancomycin/Cefepime Medical History: Past Medical History: Diagnosis Date Chronic systolic heart failure (HCC) DVT (deep venous thrombosis) (HCC) Hypercholesteremia Iron deficiency anemia Stage 2 chronic kidney disease Vitamin D deficiency No past surgical history on file. No family history on file. Social History Tobacco Use Smoking status: Never Smokeless tobacco: Never No current facility-administered medications on file prior to encounter. Current Outpatient Medications on File Prior to Encounter Medication Sig Dispense Refill amoxicillin-clavulanate (AUGMENTIN) 875-125 MG per tablet Take 1 Tablet by mouth 2 times daily for 5 days. 10 Tablet 0 doxycycline (VIBRA-TABS) 100 MG tablet Take 1 Tablet by mouth 2 times daily for 5 days. 10 Tablet 0 benzonatate (Tessalon Perles) 100 MG capsule Take 1 Capsule by mouth 3 times daily as needed for Cough. 60 Capsule 0 Apixaban (ELIQUIS) 5 MG tablet Take 1 Tablet by mouth 2 times daily. 60 Tablet 0 lidocaine (LIDODERM) 4 % PTCH patch Place 1 Patch on the skin every 24 hours for 14 days. 14 Patch 0 Cholecalciferol 50 MCG (1999 UT) CAPS Take 1 Capsule by mouth daily. magnesium oxide (MAG-OX) 400 (240 Mg) MG TABS tablet Take 400 mg by mouth daily. pantoprazole (PROTONIX) 40 MG tablet Take 40 mg by mouth daily. isosorbide dinitrate (ISORDIL) 20 MG tablet Take 3 Tablets by mouth 3 times daily. bumetanide (BUMEX) 1 MG tablet Take 2 Tablets by mouth 2 times daily. 120 Tablet 2 folic acid 1 MG tablet Take 1 Tablet by mouth daily. 30 Tablet 3 calcitRIOL (ROCALTROL) 0.5 MCG capsule Take 0.5 mcg by mouth 2 times daily. calcium carbonate (TUMS) 500 mg (200 mg elemental) tablet Take 1,000 mg by mouth 3 times daily. Allergies Allergen Reactions Torsemide Vomiting Reports did not tolerate, refuses to take again Sacubitril-Valsartan Vomiting Objective: Objective Temperature: [97.5 F (36.4 C)] 97.5 F (36.4 C) Heart Rate: [98-115] 108 Respiratory Rate: [18] 18 BP: (96-121)/(80-96) 121/96 Respiratory Support: O2 Device: Nasal cannula O2 Flow Rate (l/min): 2 I/Os: Intake/Output Summary (Last 24 hours) at 10/18/2024 0603 Last data filed at 10/18/2024 0137 Gross per 24 hour Intake 250 ml Output 200 ml Net 50 ml LABS: CBC: (10/17/2024: 8:22 PM) WBC 12.8 \ Hgb 13.6 / Plt 153 / Hct 40.2 \ BMP: (10/17/2024: 8:22 PM) 137 101 84 Gluc 106 4.7 15 2.80 Mg PO4 Ca 2.9 N/A 8.7 (1.6-2.8) (2.5-4.8) (8.4-10) Baseline Weight 155 lbs Admission Weight Weight: 153 lb (69.4 kg) Today's Weight Weight: 153 lb (69.4 kg) BMI 20.19 Change in Weight: Current value is 153.0 lb (69.400 kg) on 10/18/2024 at 0100 No other value found for comparison Active Meds: cefepime 2,000 mg One Time Dose Followed by cefepime 2,000 mg Every 12 hours bumetanide 2 mg 2x Daily isosorbide dinitrate 60 mg 3x Daily lidocaine 1 Patch Every 24 hours pantoprazole 40 mg Daily 30 min before breakfast docusate sodium 100 mg 2x Daily senna 8.6 mg At Bedtime Apixaban 5 mg 2x Daily Exam: General: NAD. HEENT: EOMI. Conjunctiva clear. +scleral icterus Heart: RRR. No murmurs or rub. Lungs: +bibasilar crackles; R>L rhonchi Abdomen: Soft. Non-tender. Non-distended. Extremities: +3 bilateral lower extremity edema Neuro: No focal deficits. A&Ox3 Skin: Warm & dry. Echo: Echocardiogram date: 10/01/2024 Left ventricular systolic function is severely globally reduced. The left ventricular ejection fraction (LVEF) is 15% +/- 5% Diastolic LV function assessed by resting Doppler is abnormal. Mixed (concentric and eccentric) left ventricular hypertrophy is present. Right ventricular function is severely reduced. Dilated left ventricle, left atrium, right ventricle, right atrium. There is mild aortic regurgitation. There is severe mitral regurgitation. There is severe wide opened tricuspid regurgitation. The pulmonary artery systolic pressure could not be estimated. Noninvasive hemodynamic assessment is consistent with an elevated CVP, an elevated LVEDP, a low cardiac output state. Risk Stratification: Chads-Vasc (stroke risk in non-valvular Afib) [id number] Score: 3 This is based on the following inputs: 0 for Heart Failure* 0 for Hypertension* 0 for Age (1 point for 65-74, 2 points for 75+) 0 for Diabetes* 0 for Stroke/TIA/Thromboembolism 0 for Vascular Disease 0 for Sex Category (1 point if female) * active problem active or resolved problem, or past medical history ASCVD Risk (10 year heart disease or stroke risk) The ASCVD Risk score (Mirta CHAVIS, et al., 2019) failed to calculate. [place] CAD risk score Cannot assess CHD for this patient for the following reason(s) only valid for HDL 20-100 mg/dL (HDL=16) ADHERE risk score: In-hospital mortality risk (assuming acute decompensated heart failure) is 22% (High), based on SBPof 101, BUN of 84, and Creatinine of 2.80, using the ADHERE risk tree. EFFECT risk score: 30-Day EFFECT Score for mortality risk is 86 (3-4% (Low)), based on age 44, respirations 18, SBP 101, BUN 84, Sodium 137, and comorbidity score of 0 Imaging: Chest x-ray was last done on 10/17/2024 XR CHEST AP OR PA 1 VIEW Result Date: 10/17/2024 Narrative: EXAMINATION: XR CHEST AP OR PA 1 VIEW 10/17/2024 09:00 PM CLINICAL HISTORY: Dyspnea at rest ASSOCIATED DIAGNOSIS: Dyspnea at rest ORDERING PROVIDER: VIC SANDHU TECHNOLOGISTS NOTE: COMPARISON: Chest radiograph dated October 13, 2024 FINDINGS: Lines, tubes, and devices: None. Lungs and pleura: Increased opacities are seen at the right lung base with interval worsening. There is no large pleural effusion or pneumothorax. Cardiomediastinal silhouette: The cardiomediastinal silhouette is prominent in size and likely exaggerated by AP technique. Musculoskeletal: Unremarkable. IMPRESSION: Interval worsening of right lower lobe pneumonia. Short-term follow-up is recommended to documentresolution. MACRO: None Consults: None Assessment and Plan: Carlo Medina is a 44 year old male admitted on 10/17/2024 with a PMH of HFrEF (15%), LBBB, HTN, HLD, hx of DVT, CKD3, cirrhosis. He is admitted to the CICU for management of cardiogenic shock in the setting of RLL HAP. Neurologic No acute issues. Cardiovascular #Cardiogenic Shock #Acute Decompensated Heart Failure #HFrEF (EF 15%) Last echo 10/01 Appears volume overload on exam Plan -Afterload reduction with isodirl 20 mg TID -Patient refusing central access at this time -Continue home bumex 1mg daily -Trend lactate -Strict I/Os -K > 4, Mg >2 Respiratory Infectious Disease #Right Lower Lobe Pneumonia #Hospital Acquired Pneumonia Admission for CAP 09/30 CXR demonstrating worsening RLL PNA Plan -Continue Vanc/Cefepime -Follow MRSA swab -Follow blood cultures / respiratory cultures -2L NC for comfort; wean as tolerated Renal/Electrolytes #SCHUYLER on CKD3 Baseline sCr 2.0 sCr here 2.80 Plan -monitor daily BMP Gastrointestinal/Liver #Cirrhosis Scleral icterus on exam Liver US 09/01 with cirrhotic morphology/ascites Plan -follow up LFTs Endocrine No acute issues. Heme/Onc #Hx of DVT Continue eliquis 5 mg BID Musculoskeletal No acute issues. Feeding 2 GM Sodium, 2000 cc Fluid Fluids No medications of specified category were found Pressors: No medications of specified category were found Analgesia acetaminophen (TYLENOL) tablet Sedation No medications of specified category were found VTE ppx Apixaban (ELIQUIS) tablet HOB Eval 30 Degrees (in intubated) Ulcer ppx pantoprazole (PROTONIX) tablet Glycemic Control Target 140-180 No medications of specified category were found SBT N/A Bowel Regimen pantoprazole (PROTONIX) tablet docusate sodium (COLACE) capsule senna (SENOKOT) tablet Indwelling N/A Drug De-Escalation ABX Dispo: Pending Code Status: Full Code Emergency Contact: PATIENT: EMERGENCY CONTACT #1: Kaitlin Hicks (Significant other) home: , work: EMERGENCY CONTACT #2: Nanci Medina (Relative) home: , work: This plan is preliminary until finalized by an attending physician. Christopher Banegas DO PGY-2 Teaching Physician Note: I saw and evaluated the patient. I personally obtained the reardon and critical portions of the historyand physical exam. I have personally reviewed and discussed the labs and relevant diagnostic studies with resident/fellow. I reviewed the resident's/fellow's documentation and discussed the patient with the resident/fellow. I agree with the resident's/fellow's medical decision making as documented in the resident's/fellow's note. Critical Care Provider Statement Critical care time was provided for 35 minutes by the attending physician. The time involved in theperformance of this care was exclusive of separately billable procedures, teaching time and treating other patients. Critical care was necessary because of an illness or injury that acutely impaired one or more vitalorgans systems such that there was a high probability of imminent or life threatening deteriorationin the patient s condition. The critical illness/injury acutely impaired the following organ systems: cardiac , infectious and renal Critical care was time was spent personally by the attending physician on the following activities:obtaining history from patient, obtaining history from family / other source, examination of patient, ordering and/or performing treatments and / or interventions, re-evaluations of patient condition/ response to treatment, ordering and review of laboratory studies, discussions with consultants and / or primary provider and development of clinical treatment plan with patient or surrogate Jim Stockton MD [id number] History and physical note* Jim Stockton MD - 10/18/2024 2:02 AM EDT Images from the original note were not included. [facility] Cardiac Intensive Care Unit - H&P Note Carlo Medina Age [age] year old male ROOM: [place] [address] Admitted: 10/17/2024 6:40 PM Hospital Day: 2 History of Present Illness: Carlo Medina is a 44 year old male admitted on 10/17/2024 with a PMH of HFrEF (15%), LBBB, HTN, HLD, hx of DVT, CKD3, cirrhosis. Patient presented to the ED reporting cough which has been presented since recent hospitalization (09/30/24 - 10/06/24). Recently, he has noticed blood tinged sputum whichprompted his ED visit. He also endorses chest pain, dyspnea at rest, and worsening bilateral lower extremity edema. He reports compliance with all home medication. No recent fevers, chills, sick contacts, nausea, vomiting, or diarrhea. During recent hospitalization, patient was initially admitted to Family Medicine inpatient team formanagement of ADHF likely secondary to CAP. However, ultimately required transfer to the CICU with concern for cardiogenic shock. While in the CICU, the patient refused IV therapies and invasive interventions after an unsuccessful right heart catheterization. Multiple discussion were had regarding the potential for further decompensation and potential sudden cardiac however the patient continued to refuse treatment. He was medically optimized and discharged with bumex/isodirl/eliquis. CAPmanaged with a course of augmentin/doxycycline. Currently, pt endorses cough and dyspnea at rest. Patient provided 2L NC for comfort. Pt admitted to CICU for management of cardiogenic shock. ED Course: Vitals: Temp 97.5, HR 115, BP 101/80, SpO2 100% Labs: - BMP: Glucose: 106, Na: 137, K: 4.7, M.9, Cr: 2.80 (baseline 2.0) - CBC: WBC: 12.8, Hgb: 13.6 (baseline 13.5), Platelet: 153 - ALT: N/A, AST: N/A, Alk Phos: N/A - ESR: N/A, CRP: N/A - Lactate: 4.7 - Troponin: 49 - BNP N/A - TSH: N/A EKG: Sinus Tachycardia, Right [place] Deviation, RBBB Imaging: - CXR 10/17/24 demonstrating interval worsening RLL PNA Interventions: Vancomycin/Cefepime Medical History: Past Medical History: Diagnosis Date Chronic systolic heart failure (HCC) DVT (deep venous thrombosis) (HCC) Hypercholesteremia Iron deficiency anemia Stage 2 chronic kidney disease Vitamin D deficiency No past surgical history on file. No family history on file. Social History Tobacco Use Smoking status: Never Smokeless tobacco: Never No current facility-administered medications on file prior to encounter. Current Outpatient Medications on File Prior to Encounter Medication Sig Dispense Refill amoxicillin-clavulanate (AUGMENTIN) 875-125 MG per tablet Take 1 Tablet by mouth 2 times daily for 5 days. 10 Tablet 0 doxycycline (VIBRA-TABS) 100 MG tablet Take 1 Tablet by mouth 2 times daily for 5 days. 10 Tablet 0 benzonatate (Tessalon Perles) 100 MG capsule Take 1 Capsule by mouth 3 times daily as needed for Cough. 60 Capsule 0 Apixaban (ELIQUIS) 5 MG tablet Take 1 Tablet by mouth 2 times daily. 60 Tablet 0 lidocaine (LIDODERM) 4 % PTCH patch Place 1 Patch on the skin every 24 hours for 14 days. 14 Patch 0 Cholecalciferol 50 MCG (2000 UT) CAPS Take 1 Capsule by mouth daily. magnesium oxide (MAG-OX) 400 (240 Mg) MG TABS tablet Take 400 mg by mouth daily. pantoprazole (PROTONIX) 40 MG tablet Take 40 mg by mouth daily. isosorbide dinitrate (ISORDIL) 20 MG tablet Take 3 Tablets by mouth 3 times daily. bumetanide (BUMEX) 1 MG tablet Take 2 Tablets by mouth 2 times daily. 120 Tablet 2 folic acid 1 MG tablet Take 1 Tablet by mouth daily. 30 Tablet 3 calcitRIOL (ROCALTROL) 0.5 MCG capsule Take 0.5 mcg by mouth 2 times daily. calcium carbonate (TUMS) 500 mg (200 mg elemental) tablet Take 1,000 mg by mouth 3 times daily. Allergies Allergen Reactions Torsemide Vomiting Reports did not tolerate, refuses to take again Sacubitril-Valsartan Vomiting Objective: Objective Temperature: [97.5 F (36.4 C)] 97.5 F (36.4 C) Heart Rate: [98-115] 108 Respiratory Rate: [18] 18 BP: (96-121)/(80-96) 121/96 Respiratory Support: O2 Device: Nasal cannula O2 Flow Rate (l/min): 2 I/Os: Intake/Output Summary (Last 24 hours) at 10/18/2024 0603 Last data filed at 10/18/2024 0137 Gross per 24 hour Intake 250 ml Output 200 ml Net 50 ml LABS: CBC: (10/17/2024: 8:22 PM) WBC 12.8 \ Hgb 13.6 / Plt 153 / Hct 40.2 \ BMP: (10/17/2024: 8:22 PM) 137 101 84 Gluc 106 4.7 15 2.80 Mg PO4 Ca 2.9 N/A 8.7 (1.6-2.8) (2.5-4.8) (8.4-10) Baseline Weight 155 lbs Admission Weight Weight: 153 lb (69.4 kg) Today's Weight Weight: 153 lb (69.4 kg) BMI 20.19 Change in Weight: Current value is 153.0 lb (69.400 kg) on 10/18/2024 at 0100 No other value found for comparison Active Meds: cefepime 2,000 mg One Time Dose Followed by cefepime 2,000 mg Every 12 hours bumetanide 2 mg 2x Daily isosorbide dinitrate 60 mg 3x Daily lidocaine 1 Patch Every 24 hours pantoprazole 40 mg Daily 30 min before breakfast docusate sodium 100 mg 2x Daily senna 8.6 mg At Bedtime Apixaban 5 mg 2x Daily Exam: General: NAD. HEENT: EOMI. Conjunctiva clear. +scleral icterus Heart: RRR. No murmurs or rub. Lungs: +bibasilar crackles; R>L rhonchi Abdomen: Soft. Non-tender. Non-distended. Extremities: +3 bilateral lower extremity edema Neuro: No focal deficits. A&Ox3 Skin: Warm & dry. Echo: Echocardiogram date: 10/01/2024 Left ventricular systolic function is severely globally reduced. The left ventricular ejection fraction (LVEF) is 15% +/- 5% Diastolic LV function assessed by resting Doppler is abnormal. Mixed (concentric and eccentric) left ventricular hypertrophy is present. Right ventricular function is severely reduced. Dilated left ventricle, left atrium, right ventricle, right atrium. There is mild aortic regurgitation. There is severe mitral regurgitation. There is severe wide opened tricuspid regurgitation. The pulmonary artery systolic pressure could not be estimated. Noninvasive hemodynamic assessment is consistent with an elevated CVP, an elevated LVEDP, a low cardiac output state. Risk Stratification: Chads-Vasc (stroke risk in non-valvular Afib) [id number] Score: 3 This is based on the following inputs: 0 for Heart Failure* 0 for Hypertension* 0 for Age (1 point for 65-74, 2 points for 75+) 0 for Diabetes* 0 for Stroke/TIA/Thromboembolism 0 for Vascular Disease 0 for Sex Category (1 point if female) * active problem active or resolved problem, or past medical history ASCVD Risk (10 year heart disease or stroke risk) The ASCVD Risk score (Mirta CHAVIS, et al., 2019) failed to calculate. [place] CAD risk score Cannot assess CHD for this patient for the following reason(s) only valid for HDL 20-100 mg/dL (HDL=16) ADHERE risk score: In-hospital mortality risk (assuming acute decompensated heart failure) is 22% (High), based on SBPof 101, BUN of 84, and Creatinine of 2.80, using the ADHERE risk tree. EFFECT risk score: 30-Day EFFECT Score for mortality risk is 86 (3-4% (Low)), based on age 44, respirations 18, SBP 101, BUN 84, Sodium 137, and comorbidity score of 0 Imaging: Chest x-ray was last done on 10/17/2024 XR CHEST AP OR PA 1 VIEW Result Date: 10/17/2024 Narrative: EXAMINATION: XR CHEST AP OR PA 1 VIEW 10/17/2024 09:00 PM CLINICAL HISTORY: Dyspnea at rest ASSOCIATED DIAGNOSIS: Dyspnea at rest ORDERING PROVIDER: VIC SANDHU TECHNOLOGISTS NOTE: COMPARISON: Chest radiograph dated October 13, 2024 FINDINGS: Lines, tubes, and devices: None. Lungs and pleura: Increased opacities are seen at the right lung base with interval worsening. There is no large pleural effusion or pneumothorax. Cardiomediastinal silhouette: The cardiomediastinal silhouette is prominent in size and likely exaggerated by AP technique. Musculoskeletal: Unremarkable. IMPRESSION: Interval worsening of right lower lobe pneumonia. Short-term follow-up is recommended to documentresolution. MACRO: None Consults: None Assessment and Plan: Carlo Medina is a 44 year old male admitted on 10/17/2024 with a PMH of HFrEF (15%), LBBB, HTN, HLD, hx of DVT, CKD3, cirrhosis. He is admitted to the CICU for management of cardiogenic shock in the setting of RLL HAP. Neurologic No acute issues. Cardiovascular #Cardiogenic Shock #Acute Decompensated Heart Failure #HFrEF (EF 15%) Last echo 10/01 Appears volume overload on exam Plan -Afterload reduction with isodirl 20 mg TID -Patient refusing central access at this time -Continue home bumex 1mg daily -Trend lactate -Strict I/Os -K > 4, Mg >2 Respiratory Infectious Disease #Right Lower Lobe Pneumonia #Hospital Acquired Pneumonia Admission for CAP 09/30 CXR demonstrating worsening RLL PNA Plan -Continue Vanc/Cefepime -Follow MRSA swab -Follow blood cultures / respiratory cultures -2L NC for comfort; wean as tolerated Renal/Electrolytes #SCHUYLER on CKD3 Baseline sCr 2.0 sCr here 2.80 Plan -monitor daily BMP Gastrointestinal/Liver #Cirrhosis Scleral icterus on exam Liver US 09/01 with cirrhotic morphology/ascites Plan -follow up LFTs Endocrine No acute issues. Heme/Onc #Hx of DVT Continue eliquis 5 mg BID Musculoskeletal No acute issues. Feeding 2 GM Sodium, 2000 cc Fluid Fluids No medications of specified category were found Pressors: No medications of specified category were found Analgesia acetaminophen (TYLENOL) tablet Sedation No medications of specified category were found VTE ppx Apixaban (ELIQUIS) tablet HOB Eval 30 Degrees (in intubated) Ulcer ppx pantoprazole (PROTONIX) tablet Glycemic Control Target 140-180 No medications of specified category were found SBT N/A Bowel Regimen pantoprazole (PROTONIX) tablet docusate sodium (COLACE) capsule senna (SENOKOT) tablet Indwelling N/A Drug De-Escalation ABX Dispo: Pending Code Status: Full Code Emergency Contact: PATIENT: EMERGENCY CONTACT #1: Kaitlin Hicks (Significant other) home: , work: EMERGENCY CONTACT #2: Nanci Medina (Relative) home: , work: This plan is preliminary until finalized by an attending physician. Christopher Banegas DO PGY-2 Teaching Physician Note: I saw and evaluated the patient. I personally obtained the reardon and critical portions of the historyand physical exam. I have personally reviewed and discussed the labs and relevant diagnostic studies with resident/fellow. I reviewed the resident's/fellow's documentation and discussed the patient with the resident/fellow. I agree with the resident's/fellow's medical decision making as documented in the resident's/fellow's note. Critical Care Provider Statement Critical care time was provided for 35 minutes by the attending physician. The time involved in theperformance of this care was exclusive of separately billable procedures, teaching time and treating other patients. Critical care was necessary because of an illness or injury that acutely impaired one or more vitalorgans systems such that there was a high probability of imminent or life threatening deteriorationin the patient s condition. The critical illness/injury acutely impaired the following organ systems: cardiac , infectious and renal Critical care was time was spent personally by the attending physician on the following activities:obtaining history from patient, obtaining history from family / other source, examination of patient, ordering and/or performing treatments and / or interventions, re-evaluations of patient condition/ response to treatment, ordering and review of laboratory studies, discussions with consultants and / or primary provider and development of clinical treatment plan with patient or surrogate Jim Stockton MD documented in this [id number] Emergency department Note* Niko Villalpando EMR - 10/18/2024 1:[address] RESENDEZ notified of critical LACTATE value of 5.3. Hard copy of results given to Dr. RESENDEZ. [id number] Emergency department Note* Vipul Jose RN - 10/17/2024 10:00 PM EDT Delay in antibiotics d/t no IV access [id number] Physician Emergency department Note* Maurice Wise MD - 10/17/2024 9:05 PM EDT 44 year old male with a hx of HFrEf (15%) presenting to the ED with cough. More like hemoptysis. JVD present. Diminisehd on right. CXR and needs to come in Cxr Interval Progress: Please see previous provider's note for full history and physical exam. Under my care, I disucussed the case with the med res team which raised concern for the patient's EF. The patient was re-evaluated and found to have cool extermities. The patient's lactate was then measured which was elevated. Given lactate, phys exam, and BNP there is concern for cardiogenic shock. The patient was then admitted to CCU . Course: ED Course as of 10/18/24 0335 Sun Oct 17, 20242040 Complete Blood Count W/Diff(!): WBC 12.8(!) RBC 3.88(!) Hemoglobin 13.6(!) Hematocrit 40.2(!) MCV 104(!) MCH 34.9(!) MCHC 33.8 Platelet 153 RDW-CV% 16.3(!) MPV 9.3 Neutrophils 85.5(!) Neutrophil # 10.98(!) Lymphocytes 7.8(!) Lymph Absolute 1.01 Monocytes 6.4 Monocyte Absolute 0.82 Eosinophil 0.0(!) Eosinophil Absolute 0.00 Basophils 0.3 Basophil # 0.03 MDW 20 Leukocytosis, similar anemia compared to prior [] 2041 I personally interpreted this ECG: sinus tachy, similar RBBB and TWI in lead 3 compared to prior [] 2056 INR(!): 2.14 [] 2119 CXR PORTABLE 1 VIEW IMPRESSION: Interval worsening of right lower lobe pneumonia. Short-term follow-up is recommended to document resolution. [] ED Course User Index [] Vic Sandhu MD Clinical Impression Diagnosis Comment Pneumonia of right lower lobe due to infectious organism [J18.9] Cardiogenic shock (HCC) [R57.0] Pneumonia due to infectious organism, unspecified laterality, unspecified part of lung [J18.9] Maurice Wise MD [id number] Physician Emergency department Note* Vic Sandhu MD - 10/17/2024 6:47 PM EDT Images from the original note were not included. EMERGENCY DEPARTMENT - VISIT NOTE HISTORY OF PRESENT ILLNESS Chief Complaint Patient presents with Cough X couple wks. Coughing up blood x couple days. C/o left side rib pain.On eloquis HIPAA: Verbal permission granted from patient to discuss case, including protected health information, in front of family / friends in room at the time of the evaluation. Genetics Physician: not needed - patient preferred language is Moroccan. HPI Pt is a 44 year old male w/ PMH of HFrEF 15%, HTN, HLD, DVT on eliquis, CKD2, cirrhosis who p/w a couple weeks of cough that has been persistent since admission for PNA. States he completed his antibiotics and denies fever, sick contacts. Reports he has been coughing up blood over the last couple days. States he had blood-tinged sputum previously which has progressed to more substantial amount ofblood. Reports BLE swelling and CP and dyspnea at rest. Denies worsening with exertion. Reports adherence to home medications including Eliquis. Chart Review: Admitted on 09/30/24 for management of ADHF in setting of CAP REVIEW OF SYSTEMS Review of Systems Negative except for above PAST HISTORY Pertinent Past History: Past Medical History: Diagnosis Date Chronic systolic heart failure (HCC) DVT (deep venous thrombosis) (HCC) Hypercholesteremia Iron deficiency anemia Stage 2 chronic kidney disease Vitamin D deficiency Pertinent Family History: No family history on file. Pertinent Social History: Social History Tobacco Use Smoking status: Never Smokeless tobacco: Never PHYSICAL EXAM Vitals Recorded in This Encounter 10/17/2024 1841 10/17/2024 2105 BP: 101/80 113/91 Pulse: 115 101 Resp: 18 18 Temp: 97.5 F (36.4 C) -- Temp src: Oral -- SpO2: 100 % 100 % Pain Score: 10 -- Constitutional: Nursing triage notes reviewed, Vital signs reviewed, Patient is alert, awake HENT: Mucous membranes are moist Eyes: EOMI Neck: Supple, JVD Lungs: mild tachypnea, diminished breath sounds on R Heart: regular tachycardia, 2+ radial pulses Abdomen: Soft, NTND, no rebound Extremities: Normal peripheral perfusion, 2+ pitting edema in BLE Neuro: Normal speech, alert Skin: No rashes Psych: Normal affect, Cooperative MEDICAL DECISION MAKING and ED COURSE Nursing triage and assessment notes reviewed and incorporated. Review of External (Non- ED) Notes: see HPI See ED course for discussion with consultants/admission team/other providers Medication Management: Medications prescribed - see visit medications. Independent test interpretation: See ED course for ECGs, labs, and imaging that I personally reviewed and interpreted Patient seen under the supervision of EM attending: Phoebe Sanderson Course: ED Course as of 10/17/242123 [place] Oct 17, 20242040 Complete Blood Count W/Diff(!): WBC 12.8(!) RBC 3.88(!) Hemoglobin 13.6(!) Hematocrit 40.2(!) MCV 104(!) MCH 34.9(!) MCHC 33.8 Platelet 153 RDW-CV% 16.3(!) MPV 9.3 Neutrophils 85.5(!) Neutrophil # 10.98(!) Lymphocytes 7.8(!) Lymph Absolute 1.01 Monocytes 6.4 Monocyte Absolute 0.82 Eosinophil 0.0(!) Eosinophil Absolute 0.00 Basophils 0.3 Basophil # 0.03 MDW 20 Leukocytosis, similar anemia compared to prior [AH] 2041 I personally interpreted this ECG: sinus tachy, similar RBBB and TWI in lead 3 compared to prior [] 2056 INR(!): 2.14 [] 2119 CXR PORTABLE 1 VIEW IMPRESSION: Interval worsening of right lower lobe pneumonia. Short-term follow-up is recommended to document resolution. [] ED Course User Index [] Vic Sandhu MD Assessment & Plan: Carlo Medina 44 year old male with pmh as noted above presented to the emergency department forpersistent cough and hemoptysis. Lab work and imaging as noted above in ED course. This is likely persistent RLL PNA causing cough w/ hemoptysis and diminished breath sounds on R given CXR above. Pt likely has subsequent ADHF given evidence of volume overload on exam. Pt's abx broadened compared toprior admission. Lower c/f PE given reported adherence to eliquis. At time of signout, pending rHSTand admission. IMPRESSION AND DISPOSITION Clinical Impression Diagnosis Comment Pneumonia of right lower lobe due to infectious organism [J18.9] Patient signed out to PD at 2100. Pt signed out without complications. Vic Sandhu MD Cosigned by Phoebe Sanderson MD at 10/18/2024 10:41 PM EDT Associated attestation - Phoebe Sanderson MD - 10/18/2024 10:41 PM EDT ATTENDING NOTE I saw and evaluated the patient. I personally obtained the reardon and critical portions of the historyand physical exam. I reviewed the resident's documentation and discussed the patient with the resident. I agree with the resident's medical decision making as documented in the resident's note. Phoebe Sanderson MD [id number] Physician Emergency department Note* Marileeyasmany Luis EduardoDO - 10/13/2024 3:51 PM EDT Images from the original note were not included. Emergency Department Note HISTORY OF PRESENT ILLNESS Chief Complaint Patient presents with Cough Pt presents to ed dt chronic cough non productive dry at night, intermittent abd pain (mid lower). -n/v, +d. -cp The history is provided by the Patient. Carlo Medina is a 44 year old year old male presenting to the ED for: cough and SOB. Pt reportsthat he has had a cough for 3 weeks. Pt had recent diagnosis of pneumonia and completed abx 2 days ago. Pt reports that his cough has been dry in nature. Pt reports that he mostly feels like cough ispronounced at night. Pt lays mostly flat at night, and reports that he uses just one pillow. Pt repo rts that he has SOB when he is exerting himself. Pt reports that he has intermittent chest burning and abdominal pain (which has been chronic in nature and is unchanged per pt). Pt has had no fevers.Pt has had no nausea or vomiting and states that he is tolerating PO. Pt has hx of CHF with recent EF of 15%. Pt has had no recent weight gain. REVIEW OF SYSTEMS Review of Systems PAST HISTORY Pertinent Past History: Past Medical History: Diagnosis Date Chronic systolic heart failure (HCC) DVT (deep venous thrombosis) ([facility]) Hypercholesteremia Iron deficiency anemia Stage 2 chronic kidney disease Vitamin D deficiency Patient Active Problem List: CKD (chronic kidney disease) [N18.9] Essential hypertension [I10] Elevated liver enzymes [R74.8] Acute deep vein thrombosis (DVT) of lower extremity ([facility]) [I82.409] HFrEF (heart failure with reduced ejection fraction) ([facility]) [I50.20] History of left bundle branch block (LBBB) [Z86.79] Acute kidney injury superimposed on CKD ([facility]) [N17.9, N18.9] Pulmonary vascular congestion [R09.89] SOB (shortness of breath) [R06.02] Pneumonia of right lower lobe due to infectious organism [J18.9] Pertinent Family History: No family history on file. Pertinent Social History: Social History Occupational History Not on file Tobacco Use Smoking status: Never Smokeless tobacco: Never Substance and Sexual Activity Alcohol use: Not on file Drug use: Not on file Sexual activity: Not on file PHYSICAL EXAM BP 103/77 Pulse 98 Temp 98.4 F (36.9 C) (Temporal) Resp 16 SpO2 97% Physical Exam Vitals reviewed. Constitutional: Appearance: Normal appearance. HENT: Head: Normocephalic and atraumatic. Nose: Nose normal. Mouth/Throat: Mouth: Mucous membranes are moist. Eyes: Extraocular Movements: Extraocular movements intact. Pupils: Pupils are equal, round, and reactive to light. Cardiovascular: Rate and Rhythm: Normal rate and regular rhythm. Pulmonary: Effort: Pulmonary effort is normal. Musculoskeletal: General: Normal range of motion. Cervical back: Normal range of motion. Skin: General: Skin is warm. Capillary Refill: Capillary refill takes less than 2 seconds. Neurological: General: No focal deficit present. Mental Status: He is alert and oriented to person, place, and time. ED COURSE History from Independent Historian: Family member reports some portions of hpi Review of External (Non- ED) Notes: [facility] ED notes from 08/22/24 reviewed and show presentation to outside ED for chest pain Management Decisions: Admission considered due to cough and SOB with hx of CHF with EF of 15% Shared decision making used to decide on CXR Diagnoses considered include covid, influenza, pneumonia, bronchitis, CHF ED prescription drug management decision making: Medications prescribed - see visit medications. Independent Test Interpretation: EKG personally reviewed and interpreted, Nsr rate of 99, Qtc of 544, No St elevation/depression Lab studies reviewed, Covid/flu Xrays personally reviewed and interpreted, Cxr showing improved Right lower lobe consolidation. Final decision-making pending radiology read. Chart Review (including Care Everywhere visits) including pertinent past labs or imaging studies were incorporated into today's ED chart. MDM AND DISPOSITION Discussion and Plan of Emergency Care: Carlo Medina is a 44 year old year old male presenting to the ED for: cough and SOB. Pt with history of HFrEF (15%), LBBB, HTN, HLD, hx of DVT, CKD3, cirrhosis. Admitted 09/30/2024 to [facility] for aDHF 2/2 CAP. Pt completed course of Augmentin for pneumonia. Pt had CT on 09/30/24 that showed right lower lobe pneumonia. Pt without hypoxia or increased work of breathing on arrival. Pt here with chronic cough of around 3 weeks since prior to recent admission. Pt notes that he feels baseline orthopnea and CARRERA. Pt denies any recent weight gain. Plan for covid/flu testing, CXR and EKG. EKG unremarkable and CXR showing improved right lower lobe consolidation. Given persistent symptoms with still presence of come consolidation will dc home with 5 additional days of abx with extended coverage with doxy. CXR IMPRESSION: Suspected improved but persistent right lower lobe consolidation. No pleural effusion. Stable cardiomegaly. Clinical Impression Diagnosis Comment Cough, unspecified type [R05.9] Pneumonia of right lower lobe due to infectious organism [J18.9] New Prescriptions AMOXICILLIN-CLAVULANATE (AUGMENTIN) 875-125 MG PER TABLET Take 1 Tablet by mouth 2 times daily for 5 days. BENZONATATE (TESSALON PERLES) 100 MG CAPSULE Take 1 Capsule by mouth 3 times daily as needed for Cough. DOXYCYCLINE (VIBRA-TABS) 100 MG TABLET Take 1 Tablet by mouth 2 times daily for 5 days. Disposition: Disposition: Home The patient has received a medical screening examination and within reasonable clinical confidence an emergency medical condition was identified and has been stabilized. Medication Management: Medications prescribed - see visit medications. Counseling: Spoke with the patient and discussed today s findings, in addition to providing specific details for the plan of care and expected course. They were given the opportunity to ask questions. Discussed return precautions and importance of follow-up. Advised to follow-up with PCP. Advised to return to the ED for changing or worsening symptoms, new symptoms, complaint specific precautions, and precautions listed on the discharge paperwork. Educated on the common potential side effects of medications prescribed. The plan of care was mutually agreed upon with the patient. The patient and/or family were given the opportunity to ask questions. All questions asked today in the ED were answered to the best of my ability with today's information. I advised the patient that the emergency evaluation and treatment provided today doesn't end their need for care. It is very important that they follow-up with their primary care provider. Luis Eduardo Bernal DO [id number] Emergency department Note* Luis Eduardo Bernal DO - 10/13/2024 3:51 PM EDT Images from the original note were not included. Emergency Department Note HISTORY OF PRESENT ILLNESS Chief Complaint Patient presents with Cough Pt presents to ed dt chronic cough non productive dry at night, intermittent abd pain (mid lower). -n/v, +d. -cp The history is provided by the Patient. Carlo Medina is a 44 year old year old male presenting to the ED for: cough and SOB. Pt reportsthat he has had a cough for 3 weeks. Pt had recent diagnosis of pneumonia and completed abx 2 days ago. Pt reports that his cough has been dry in nature. Pt reports that he mostly feels like cough ispronounced at night. Pt lays mostly flat at night, and reports that he uses just one pillow. Pt repo rts that he has SOB when he is exerting himself. Pt reports that he has intermittent chest burning and abdominal pain (which has been chronic in nature and is unchanged per pt). Pt has had no fevers.Pt has had no nausea or vomiting and states that he is tolerating PO. Pt has hx of CHF with recent EF of 15%. Pt has had no recent weight gain. REVIEW OF SYSTEMS Review of Systems PAST HISTORY Pertinent Past History: Past Medical History: Diagnosis Date Chronic systolic heart failure (HCC) DVT (deep venous thrombosis) ([facility]) Hypercholesteremia Iron deficiency anemia Stage 2 chronic kidney disease Vitamin D deficiency Patient Active Problem List: CKD (chronic kidney disease) [N18.9] Essential hypertension [I10] Elevated liver enzymes [R74.8] Acute deep vein thrombosis (DVT) of lower extremity ([facility]) [I82.409] HFrEF (heart failure with reduced ejection fraction) ([facility]) [I50.20] History of left bundle branch block (LBBB) [Z86.79] Acute kidney injury superimposed on CKD (HCC) [N17.9, N18.9] Pulmonary vascular congestion [R09.89] SOB (shortness of breath) [R06.02] Pneumonia of right lower lobe due to infectious organism [J18.9] Pertinent Family History: No family history on file. Pertinent Social History: Social History Occupational History Not on file Tobacco Use Smoking status: Never Smokeless tobacco: Never Substance and Sexual Activity Alcohol use: Not on file Drug use: Not on file Sexual activity: Not on file PHYSICAL EXAM BP 103/77 Pulse 98 Temp 98.4 F (36.9 C) (Temporal) Resp 16 SpO2 97% Physical Exam Vitals reviewed. Constitutional: Appearance: Normal appearance. HENT: Head: Normocephalic and atraumatic. Nose: Nose normal. Mouth/Throat: Mouth: Mucous membranes are moist. Eyes: Extraocular Movements: Extraocular movements intact. Pupils: Pupils are equal, round, and reactive to light. Cardiovascular: Rate and Rhythm: Normal rate and regular rhythm. Pulmonary: Effort: Pulmonary effort is normal. Musculoskeletal: General: Normal range of motion. Cervical back: Normal range of motion. Skin: General: Skin is warm. Capillary Refill: Capillary refill takes less than 2 seconds. Neurological: General: No focal deficit present. Mental Status: He is alert and oriented to person, place, and time. ED COURSE History from Independent Historian: Family member reports some portions of hpi Review of External (Non- ED) Notes: [facility] ED notes from 08/22/24 reviewed and show presentation to outside ED for chest pain Management Decisions: Admission considered due to cough and SOB with hx of CHF with EF of 15% Shared decision making used to decide on CXR Diagnoses considered include covid, influenza, pneumonia, bronchitis, CHF ED prescription drug management decision making: Medications prescribed - see visit medications. Independent Test Interpretation: EKG personally reviewed and interpreted, Nsr rate of 99, Qtc of 544, No St elevation/depression Lab studies reviewed, Covid/flu Xrays personally reviewed and interpreted, Cxr showing improved Right lower lobe consolidation. Final decision-making pending radiology read. Chart Review (including Care Everywhere visits) including pertinent past labs or imaging studies were incorporated into today's ED chart. MDM AND DISPOSITION Discussion and Plan of Emergency Care: Carlo Medina is a 44 year old year old male presenting to the ED for: cough and SOB. Pt with history of HFrEF (15%), LBBB, HTN, HLD, hx of DVT, CKD3, cirrhosis. Admitted 09/30/2024 to [facility] for aDHF 2/2 CAP. Pt completed course of Augmentin for pneumonia. Pt had CT on 09/30/24 that showed right lower lobe pneumonia. Pt without hypoxia or increased work of breathing on arrival. Pt here with chronic cough of around 3 weeks since prior to recent admission. Pt notes that he feels baseline orthopnea and CARRERA. Pt denies any recent weight gain. Plan for covid/flu testing, CXR and EKG. EKG unremarkable and CXR showing improved right lower lobe consolidation. Given persistent symptoms with still presence of come consolidation will dc home with 5 additional days of abx with extended coverage with doxy. CXR IMPRESSION: Suspected improved but persistent right lower lobe consolidation. No pleural effusion. Stable cardiomegaly. Clinical Impression Diagnosis Comment Cough, unspecified type [R05.9] Pneumonia of right lower lobe due to infectious organism [J18.9] New Prescriptions AMOXICILLIN-CLAVULANATE (AUGMENTIN) 875-125 MG PER TABLET Take 1 Tablet by mouth 2 times daily for 5 days. BENZONATATE (TESSALON PERLES) 100 MG CAPSULE Take 1 Capsule by mouth 3 times daily as needed for Cough. DOXYCYCLINE (VIBRA-TABS) 100 MG TABLET Take 1 Tablet by mouth 2 times daily for 5 days. Disposition: Disposition: Home The patient has received a medical screening examination and within reasonable clinical confidence an emergency medical condition was identified and has been stabilized. Medication Management: Medications prescribed - see visit medications. Counseling: Spoke with the patient and discussed today s findings, in addition to providing specific details for the plan of care and expected course. They were given the opportunity to ask questions. Discussed return precautions and importance of follow-up. Advised to follow-up with PCP. Advised to return to the ED for changing or worsening symptoms, new symptoms, complaint specific precautions, and precautions listed on the discharge paperwork. Educated on the common potential side effects of medications prescribed. The plan of care was mutually agreed upon with the patient. The patient and/or family were given the opportunity to ask questions. All questions asked today in the ED were answered to the best of my ability with today's information. I advised the patient that the emergency evaluation and treatment provided today doesn't end their need for care. It is very important that they follow-up with their primary care provider. Luis Eduardo Bernal DO documented in this [id number] Hospital Discharge instructions* Discharge Instructions* Luis Eduardo Bernal DO - 10/13/2024 3:51 PM EDT Respiratory instructions: Return to the ED if you have worsening shortness of breath, increased fever, coughing up blood, new or worsening chest pain or your symptoms don't improve in 2 days. documented in this [id number] Telephone encounter Note* Telephone Encounter - Louise Morales RN - 10/13/2024 1:01 PM EDT What is the need: Situation: call transferred from [facility] for cough. Patient calling with concern of coughing up blood, SOB and chest pain Background: see nurse triage Assessment: see nurse triage Recommendation: per disposition, advised patient to call EMS now. Patient verbalizes understanding. Louise Morales RN Reason for Disposition [1] Chest pain AND [2] difficulty breathing Answer Assessment - Initial Assessment Questions 1. ONSET: When did the cough begin? 3 weeks ago 2. SEVERITY: How bad is the cough today? Did the blood appear after a coughing spell? Pretty bad coughing every 2-3 minutes 3. SPUTUM: Describe the color of your sputum (e.g., none, dry cough; clear, white, yellow, green) Dry cough, occasional blood 4. HEMOPTYSIS: How much blood? (e.g., flecks, streaks, tablespoons) About the size of a dime. Happens about three times a day 5. DIFFICULTY BREATHING: Are you having difficulty breathing? If Yes, ask: How bad is it? (e.g., mild, moderate, severe) - MILD: No SOB at rest, mild SOB with walking, speaks normally in sentences, can lie down, no retractions, pulse < 100. - MODERATE: SOB at rest, SOB with minimal exertion and prefers to sit, cannot lie down flat, speaksin phrases, mild retractions, audible wheezing, pulse 100 to 120. - SEVERE: Very SOB at rest, speaks in single words, struggling to breathe, sitting hunched forward,retractions, pulse > 120 Mild. Not SOB at rest but SOB with any activity 6. FEVER: Do you have a fever? If Yes, ask: What is your temperature, how was it measured, and when did it start? Denies 7. CARDIAC HISTORY: Do you have any history of heart disease? (e.g., heart attack, congestive heart failure) CHF 8. LUNG HISTORY: Do you have any history of lung disease? (e.g., pulmonary embolus, asthma, emphysema) Denies 9. PE RISK FACTORS: Do you have a history of blood clots? Note: Other risk factors include recentmajor surgery, recent prolonged travel, being bedridden. Denies 10. OTHER SYMPTOMS: Do you have any other symptoms? (e.g., runny nose, wheezing, chest pain) Chest pain (intermittent, 3-4/10) 11. : Is there any chance you are ? When was your last menstrual period? N/a 12. TRAVEL: Have you traveled out of the country in the last month? (e.g., travel history, exposures) Denies Protocols used: Coughing Up Blood-A-AH [id number] Miscellaneous Notes* Telephone Encounter - Louise Morales RN - 10/13/2024 1:01 PM EDT What is the need: Situation: call transferred from [facility] for cough. Patient calling with concern of coughing up blood, SOB and chest pain Background: see nurse triage Assessment: see nurse triage Recommendation: per disposition, advised patient to call EMS now. Patient verbalizes understanding. Louise Morales RN Reason for Disposition [1] Chest pain AND [2] difficulty breathing Answer Assessment - Initial Assessment Questions 1. ONSET: When did the cough begin? 3 weeks ago 2. SEVERITY: How bad is the cough today? Did the blood appear after a coughing spell? Pretty bad coughing every 2-3 minutes 3. SPUTUM: Describe the color of your sputum (e.g., none, dry cough; clear, white, yellow, green) Dry cough, occasional blood 4. HEMOPTYSIS: How much blood? (e.g., flecks, streaks, tablespoons) About the size of a dime. Happens about three times a day 5. DIFFICULTY BREATHING: Are you having difficulty breathing? If Yes, ask: How bad is it? (e.g., mild, moderate, severe) - MILD: No SOB at rest, mild SOB with walking, speaks normally in sentences, can lie down, no retractions, pulse < 100. - MODERATE: SOB at rest, SOB with minimal exertion and prefers to sit, cannot lie down flat, speaksin phrases, mild retractions, audible wheezing, pulse 100 to 120. - SEVERE: Very SOB at rest, speaks in single words, struggling to breathe, sitting hunched forward,retractions, pulse > 120 Mild. Not SOB at rest but SOB with any activity 6. FEVER: Do you have a fever? If Yes, ask: What is your temperature, how was it measured, and when did it start? Denies 7. CARDIAC HISTORY: Do you have any history of heart disease? (e.g., heart attack, congestive heart failure) CHF 8. LUNG HISTORY: Do you have any history of lung disease? (e.g., pulmonary embolus, asthma, emphysema) Denies 9. PE RISK FACTORS: Do you have a history of blood clots? Note: Other risk factors include recentmajor surgery, recent prolonged travel, being bedridden. Denies 10. OTHER SYMPTOMS: Do you have any other symptoms? (e.g., runny nose, wheezing, chest pain) Chest pain (intermittent, 3-4/10) 11. : Is there any chance you are ? When was your last menstrual period? N/a 12. TRAVEL: Have you traveled out of the country in the last month? (e.g., travel history, exposures) Denies Protocols used: Coughing Up Blood-A-AH * Telephone Encounter - Luma Bowie - 10/13/2024 12:51 PM EDT Caller transferred to nurse for sx of(buzzword or buzzword situation)was hosptalized for pneumonia and concerned about lingering cough. documented in this [id number] Telephone encounter Note* Telephone Encounter - Luma Bowie - 10/13/2024 12:51 PM EDT Caller transferred to nurse for sx of(buzzword or buzzword situation)was hosptalized for pneumonia and concerned about lingering cough. [id number] NotePatient: CARLO MEDINA Age: 44 years Sex: Male : 1980 Associated Diagnoses: None Author: REAGAN GALAN DO Chief Complaint Chest pain History of Present Illness 44-year-old unclear past medical history, hypertension, presents with shortness of breath. Noted patient has been in several different hospital systems during the last few month. No records available. He has a bundle branch block, cardiomegaly on chest x-ray. He is in sinus rhythm. Currently he is laying flat without orthopnea. Vitals are stable. Appears to be euvolemic on exam. Denies chest pain palpitation lightheadedness.. Histories Procedure history: No active procedure history items have been selected or recorded. Health Status Current medications: Home Meds (ST) Home Medications (5) Active bumetanide 1 mg oral tablet 1 mg = 1 tabs, ORAL, BID Eliquis 5 mg oral tablet 5 mg = 1 tabs, ORAL, BID folic acid 1 mg oral tablet 1 mg = 1 tabs, ORAL, DAILY hydrALAZINE 100 mg oral tablet 100 mg = 1 tabs, ORAL, BID isosorbide dinitrate 20 mg oral tablet 20 mg = 1 tabs, ORAL, TID Review of Systems Eye: Negative except as documented in history of present illness. Physical Examination VS/Measurements No qualifying data available HENT: Normocephalic. Neck: Supple. Respiratory: Lungs are clear to auscultation. Cardiovascular: Normal rate. Gastrointestinal: Soft. Integumentary: Warm. Neurologic: Alert. Review / Management Results review: Labs (Last four charted values) WBC 7.8 (SEP 19) 5.0 (SEP 18) 7.5 (SEP 17) Hgb 13.6 (SEP 19) 13.6 (SEP 18) 15.1 (SEP 17) Hct L 40.1 (SEP 19) L 40.8 (SEP 18) 46.5 (SEP 17) Plt 186 (SEP 19) 179 (SEP 18) 236 (SEP 17) Na 139 (SEP 19) 140 (SEP 18) 141 (SEP 17) K 3.7 (SEP 19) 3.6 (SEP 18) 3.6 (SEP 17) CO2 26.0 (SEP 19) 26.0 (SEP 18) 25.0 (SEP 17) Cl 100 (SEP 19) 100 (SEP 18) 100 (SEP 17) Cr H 2.3 (SEP 19) H 2.1 (SEP 18) H 2.0 (SEP 17) BUN H 50 (SEP 19) H 45 (SEP 18) H 43 (SEP 17) Glucose Random H 117 (SEP 19) H 175 (SEP 18) 99 (SEP 17) Mg 2.2 (SEP 17) Ca 9.0 (SEP 19) 9.1 (SEP 18) 9.3 (SEP 17) INR 1.4 (SEP 18) . Impression and Plan Chest pain cardiology on consult continue all the present care and therapy [facility]04-10-2025 Telephone encounter Note* Telephone Encounter - Radha Flores RN - 10/07/2024 1:44 PM EDT Transitional Care Management Contact Initial communication post-discharge: 1st attempt: 10/07/24, 1:44 PM -No answer 2nd attempt: 10/08/24, 9:47 AM -No answer 3rd attempt: 10/08/24, 2:53 PM -No answerLetter mailed: 10/08/24 Patient no longer meet Hardening Machine Operator Coordination services due to one or more of the following: [] Well connected to medical home and/or other services [] Identified Needs/Goals have been met [x] Unable to contact patient (at least 3 documented attempts) [] Is not adherent to Care Plan or Goals [] Declined Services [] Rolled off insurance plan or no longer MH patient [] Living situation changed; ie. SNF, Custodial, Hospice [] PCP recommends deferral [] Patient transferred to Survey Data Technician or Community Health Nurse [] No readmissions 30 days post discharge. [] DESEAN Bee, dance artistChaplain [phone] [id number] Miscellaneous Notes* Telephone Encounter - Radha Flores RN - 10/07/2024 1:44 PM EDT Transitional Care Management Contact Initial communication post-discharge: 1st attempt: 10/07/24, 1:44 PM -No answer 2nd attempt: 10/08/24, 9:47 AM -No answer 3rd attempt: 10/08/24, 2:53 PM -No answerLetter mailed: 10/08/24 Patient no longer meet Hardening Machine Operator Coordination services due to one or more of the following: [] Well connected to medical home and/or other services [] Identified Needs/Goals have been met [x] Unable to contact patient (at least 3 documented attempts) [] Is not adherent to Care Plan or Goals [] Declined Services [] Rolled off insurance plan or no longer MH patient [] Living situation changed; ie. SNF, Custodial, Hospice [] PCP recommends deferral [] Patient transferred to Survey Data Technician or Community Health Nurse [] No readmissions 30 days post discharge. [] DESEAN Bee, dance artistChaplain [phone] documented in this [id number] NoteThe [facility] History of Present illness Narrative* Penelope Chaidez RN - 10/06/2024 11:21 AM EDT 10/06/2024 - Patient given AM medications. Patient spit out medications. Patient states that he has bad kidneys and medications make him sick. This RN educated on the importance of the medication. MD notified. * Penelope Chaidez RN - 10/06/2024 11:17 AM EDT 10/05/2024 - Patient given AM medications. Patient immediately spit up medications. MD notified. Patient also given afternoon medications. Patient went into bathroom with medications and closed the door. This RN unable to confirm if patient took medications. MD notified. * Wade Quesada RN - 10/06/2024 9:44 AM EDT SW/CM has reviewed patient's chart and assessed that there are no discharge planning needs at this time. The following was reviewed to determine no SW/CM needs warranted. 1). PT/OT evaluations indicate pt can DC home with no needs or PT/OT evaluations are not warranted. 2). No wound care or IV Antibiotics indicated at this time. 3). No SW/CM consults placed through nursing admission screen 4). Pt does not meet the criteria of being a Medicare recipient that has a high or rising readmission rate. Patient will continue to be discussed in multi-disciplinary rounds and monitored daily. If any of the the above changes, SW/CM will complete appropriate assessments and interventions. Wade ANTON, RN, CM Care Coordination department secure epic chat * Amanda Esposito RN - 10/05/2024 4:05 PM EDT Report received from amirah evans. Care assumed att * Dominic Chacko MD - 10/05/2024 12:37 PM EDT Images from the original note were not included. [facility] Internal Medicine: TEAM 2 - Daily Progress Note Patient: Carlo Medina : 1980 Sex: male Room: [place] [address] Admit Date: 09/30/2024 Today's Date: 10/05/2024 Length of stay: 5 day(s) HOSPITAL COURSE: Carlo Medina Is a 44 year old with a pmh of HFrED (EF 15% Feburary 2024), LBBB, HTN, HLD, Hx DVT,Cirrhosis, CKD 3 who was admitted September 30 2024 for acute Decompensated Heart failure and Presumed CAP. Initially presented to ED with Shortness of breath and right sided rib/chest pain. On arrival was tachycardic, tachyphemic, and hypotensive thought oxygenating adequately on room air. Labs significant for [place], elevated alk phosph and bilirubin. He received normal saline bolus, 150 mcg fentanyl, and lidocaine patch was started on cefepime and doxycycline for suspected PNA. He got an echo that showed EF 15% with severe mitral and tricuspid regurgitation, elevated CVP. Cardiology consulted recommended resuming home hydralazine and isosorbide dinitrate. Due to rising lactate levels was transferred to CICU for IV inotopes. Arriving at CICU pt denies chest pain or shortness of breath. Stated intermittent burning chest discomfort, but not pressure like. No orthopnea but endorse paroxysmal nocturnal dyspnea w/ some LE edema. He told the ICU doctors that he only wants to be on IV inotrope drip for short duration since hedid not want ot be tied down', though no concerns of the medication itself. His CICU course was complicated by treatment refusal. He was refusion most IV meds (heparin, dobutamine, CTX) . Was able to attempt CVC/swans Maria C after discussion of untreated cardiogenic shock, but unsuccessful. Ethics consulted. He then removed his IV again, and refuse dobutamine, heparin CTX and venous catheters, since pt was not accepting ICU level care he was transferred to [facility]. SUBJECTIVE: EVENTS IN PAST 24H: Some chest pain overnight received 1 5 mg Oxy, warm compress helped , VS stable. Tele with runs of PVCs and non sustained V-tach SUBJECTIVE: Doing well, feels like he is getting better. Still with cough. Will take oral meds and is agreeableto IV for labs. Re discussed code status and he is a Full code. Objective OBJECTIVE: Temperature: [97.3 F (36.3 C)-97.9 F (36.6 C)] 97.6 F (36.4 C) Heart Rate: [94-109] 103 Respiratory Rate: [18-19] 18 BP: (97-121)/(82-98) 101/83 I/Os: No intake or output data in the 24 hours ending 10/05/24 1237 LABS: CBC: (10/05/2024: 12:29 AM) WBC 9.2 \ Hgb 13.3 / Plt 195 / Hct 39.7 \ BMP: (10/05/2024: 12:29 AM) 134 97 51 Gluc 124 4.8 23 2.18 Mg PO4 Ca 2.1 3.9 8.1 (1.6-2.8) (2.5-4.8) (8.4-10) PHYSICAL EXAM: General: NAD. HEENT: EOMI. scleral icterus. Heart: RRR. Faint heart sounds, S3, faint radial puleses. Elevated JVP Lungs: Diminished breath sounds in RLL Abdomen: Mild distension, milkd tenderness in LLQ Extremities: 2+ pitting edema, Neuro: No focal deficits. A&Ox3 Telemetry Findings: pvcs non sustained runs of V-tach OTHER DATA: Left Ventricular Ejection Fraction Date Value Ref Range Status 10/01/2024 15 % Final IMAGING/OTHER: Chest x-ray was last done on 10/02/2024 Echocardiogram date: 10/01/2024 CT abdomin pelvis: 1. Right lower lobe pneumonia. 2. Moderate to large volume ascites increased compared to prior ultrasound examination. 3. No pneumoperitoneum. 4. Findings suggest underlying liver disease. Clinical correlation is recommended. 5. No urolithiasis or obstructive uropathy. 6. Cardiomegaly. Echo: Left ventricular systolic function is severely globally reduced. The left ventricular ejection fraction (LVEF) is 15% +/- 5% Diastolic LV function assessed by resting Doppler is abnormal. Mixed (concentric and eccentric) left ventricular hypertrophy is present. Right ventricular function is severely reduced. Dilated left ventricle, left atrium, right ventricle, right atrium. There is mild aortic regurgitation. There is severe mitral regurgitation. There is severe wide opened tricuspid regurgitation. The pulmonary artery systolic pressure could not be estimated. Noninvasive hemodynamic assessment is consistent with an elevated CVP, an elevated LVEDP, a low cardiac output state. CONSULTS: IP CARDIOLOGY HEART FAILURE CONSULT IP PALLIATIVE CARE CONSULT ASSESSMENT AND PLAN: SUMMARY: Carlo Medina is a 44 year old male with a history of HFrED (EF 18%), LBBB, HTN, HLD, bilateral DVT 05/2024. Cirrhosis, and CKD3 admitted with RLL PNA and Acute decompensated heart failure exacerbation with impending cardiogenic shock. Pt with capacity refusing ICU treatments/interventions, transferred to [facility]. He is vitally stable, and electrolytes are reassuring despite his low cardiac outputand hypervolemic state. Will transition to oral diereses and abx, monitor labs. Pt agreeable for IVaccess, code status re discussed, he reiterates full code status. PROBLEM LIST: #ADF #HFrE (EF 15%) #Severe MR - BNP 6,470 - Trops 38, 38 - echo concerning for low cardiac output state, elevated CVP - Physical exam still hypervolemic s/p 160 lasix on 10/03, with improvement in kidney function after diuresis. - Lactate (5.0 -> 4.3 -> 3.5, 5.0 -> 2.0 - > 3.5 - Lipids: Total cholesterol normal, LDL 127 - dry weight 160s Plan: - Repeat lactate in AM - GDMT: - Afterload reduction: home hydralazine 100 TID, Isordil 20 TID - MRA: none - BB: held in CICU - SGLT2: none - Continue home eliquis 5 BID (aware that its not ideal in [place], but pt refusing IV access, heparin,and labs. He needs AC for his DVT) - Will give Bumex 2mg today - 2 gram salt diet fluid restrict. - Heart failure following appreciate recs: continue hydral, isordil, and bumex daily. Pt is not a candidate for advanced therapies due to refusing interventions. Follow up outpatient. #CAP - RLL consolidation on CXR - Patient with Productive cough, pleuritic pain - sating well on RA - Last CBC 10/02/2024 with leukocytosis 12.4, no fevers - BCX NGTD Plan: - Was on CTX and doxy, however pt is refusing IV and oral medications. - Has gotten 5 doses of doxy and only 1 dose of CTX - Will transition to oral meds with Augmentin and Doxy, since he has been inconsistent with doxy/CTX and WBC increasing will plan a 5 day course of Augmentin and doxy ending 10/09. - f/u strep and legionella antigens - tylenol and lidocaine for pain - monitor CBC and fever curve #SCHUYLER on CKD - baseline Cr 1.9, admission Cr 2.64. Last Cr obtained 2.51 (10/02) - Kidney function improved s/p 160 lasix, likely cardio renal. Still hypervolemic. Plan: - Bumex 2 mg today, monitor UOP - daily BMP - strict I/Os - avoid nephrotoxic agents #Cirrhosis #Moderate Ascites - CT abd - Moderate to large volume ascites increased compared to prior ultrasound examination - on admission ALP 331, D Edgar 2.40, Total Bili 5.7 - Seen by GI 09/05 admission, Recommended fibroscan at d/v - No fevers Ddx: medication non compliance vs worsening cirrhosis vs SBP MELD 28 on admission. Plan: - Consider paracentesis, though pt has refused in past - sodium restrictoin <2g per day - Fibroscan at D/c DVT Prophylaxis: Eliquis 5 mg Analgesia: Tylenol prn lidocaine patch Diet: 2 GM Sodium, 2000 cc Fluid IVF: None Code Status: Full Code Emergency Contact: PATIENT: EMERGENCY CONTACT #1: Kaitlin Hicks (Significant other) home: , work: EMERGENCY CONTACT #2: AdamNanci (Relative) home: , work: Dispo: Home when medically ready Outpatient followup: PCP, Yuval Gayle MD Plan is preliminary until finalized by the attending physician. Dominic Chacko MD Internal Medicine Pediatrics PGY 1 Team 2 Med [phone] Cosigned by Julio Jauregui MD at 10/05/2024 9:44 PM EDT * Aryan Cervantes MD - 10/05/2024 9:35 AM EDT Images from the original note were not included. Consult Service Progress Note Heart Failure Service Date and Time of Visit: 10/05/2024 9:35 AM Room: [place] [address] PCP Contact: Yuval Gayle MD Consultation Requested by: Julio Jauregui MD Admit Date: 09/30/2024 Length of stay: 5 day(s) Reason for Consultation Low cardiac output state Interim History Patient transferred back to regular floors. Had been refusing most of his medications and blood work, and refused IV dobutamine. Active Hospital Problems Diagnosis Pneumonia of right lower lobe due to infectious organism Acute kidney injury superimposed on CKD ([facility]) HFrEF (heart failure with reduced ejection fraction) ([facility]) Allergies Allergies Allergen Reactions Torsemide Vomiting Reports did not tolerate, refuses to take again Sacubitril-Valsartan Vomiting Medications Current Facility-Administered Medications Medication Dose Route Frequency Last Rate Last Admin doxycycline (VIBRA-TABS) 100 MG tablet 100 mg Oral 2x Daily amoxicillin-clavulanate (AUGMENTIN) 875-125 MG per tablet 1 Tablet Oral 2x Daily 1 Tablet at 10/04/24 1901 Apixaban (ELIQUIS) tablet 5 mg Oral 2x Daily 5 mg at 10/04/24 190 bumetanide (BUMEX) tablet 2 mg Oral Once acetaminophen (TYLENOL) 650 MG/20.3ML oral solution 1,000 mg Oral Q8H PRN 1,000 mg at 10/04/24 2254 oxyCODONE immediate release tablet 5 mg Oral Q6H PRN 5 mg at 10/04/24 190 trimethobenzamide (TIGAN) 100 MG/ML injection 200 mg Intramuscular Q6H PRN 200 mg at 10/02/24 0001 DOBUTamine 1000 mg in dextrose 5 % 250 mL (DOBUTREX) iv infusion 2.5 mcg/kg/min Intravenous Continuous Stopped at 10/03/24 1934 isosorbide dinitrate (ISORDIL) tablet 20 mg Oral 3x Daily 20 mg at 10/04/24 1543 acetaminophen (TYLENOL) 650 MG/20.3ML oral solution 1,000 mg Oral Once folic acid 1 MG tablet 1 mg Oral Daily 1 mg at 10/02/24 0859 hydrALAZINE (APRESOLINE) tablet 100 mg Oral 3x Daily 100 mg at 10/04/24 1543 [Transfer Hold] lidocaine (LIDODERM) 4 % patch 1 Patch Transdermal Every 24 hours 1 Patch at 10/04/24 1656 Vital signs and I/Os BP 121/98 (BP Location: left arm) Pulse 94 Temp 97.3 F (36.3 C) (Temporal) Resp 18 Ht 6' 1(1.854 m) Wt 167 lb 1.7 oz (75.8 kg) SpO2 100% BMI 22.05 kg/m Vital sign ranges over the past 24 hours (retrieved 10/05/2024 at 9:35 AM): Tmax (24 hours): 97.9 F (36.6 C) Pulse Av.8 Min: 94 Max: 109 Systolic (24hrs), Av , Min:97 , Max:121 Diastolic (24hrs), Av, Min:82, Max:98 MAP (mmHg) Av.3 mmHg Min: 89 mmHg Max: 104 mmHg Resp Av.3 Min: 18 Max: 19 SpO2 Av.3 % Min: 96 % Max: 100 % Change in Weight: Current value is 167.1 lb (75.799 kg) on 10/05/2024 at 0502 -1.1 lb (-0.495 kg) (-0.65 %) from 168.2 lb (76.294 kg) on 10/02/2024 at 0500 (previous value) +0.7 lb (0.321 kg) (0.43 %) from 166.4 lb (75.478 kg) on 10/01/2024 at 0522 (first value for this admission) No intake or output data in the 24 hours ending 10/05/24 0935 Physical Examination BP 121/98 (BP Location: left arm) Pulse 94 Temp 97.3 F (36.3 C) (Temporal) Resp 18 Ht 6' 1(1.854 m) Wt 167 lb 1.7 oz (75.8 kg) SpO2 100% BMI 22.05 kg/m Laboratory Tests BMP (last 3 years, up to 8 values) 10/05/2024 10/02/2024 10/01/2024 09/30/2024 09/09/2024 09/08/2024 09/06/202409/0609/06/2024 12:29 AM 6:37 PM 4:36 AM 4:21 PM 4:01 AM 1:10 AM 8:42 PM 9:40 AM Na 134 134 138 134 139 141 138 140 K 4.8 4.1 4.5 4.0 3.9 4.1 3.9 3.8 Cl 97 100 104 98 97 96 96 98 CO2 23 21 20 23 31 32 29 29 Gap 19 17 19 17 15 17 17 17 Glu 124 182 151 189 110 101 133 133 BUN 51 45 41 43 36 34 39 44 Cr 2.18 2.51 2.33 2.64 1.81 1.68 1.85 1.93 Ca 8.1 8.2 8.4 9.4 7.7 7.9 8.0 8.2 eGFR 37 31 34 29 46 50 45 43 CBC (last 3 years, up to 8 values) 10/05/2024 10/02/2024 10/01/2024 09/30/2024 09/09/2024 09/08/2024 09/06/2024 09/06/2024 12:29 AM 6:37 PM 4:36 AM 4:21 PM 4:01 AM 1:10 AM 8:42 PM 9:40 AM WBC 9.2 12.4 10.9 7.7 8.8 8.4 7.7 7.1 RBC 3.83 3.82 4.11 4.57 4.28 4.19 4.31 4.26 Hgb 13.3 13.2 14.2 15.6 14.7 14.4 14.8 14.6 Hct 39.7 39.1 42.8 47.7 43.5 43.0 43.9 42.7 MCV 104 102 104 105 102 103 102 100 RDW 15.2 14.5 14.9 15.4 13.8 13.6 13.9 13.9 Plt 195 212 227 299 278 278 268 279 Cardiac None Date of last serum creatinine: 10/05/2024 Estimated Creatinine Clearance: 45.4 mL/min (A) (by C-G formula based on SCr of 2.18 mg/dL (H)). Estimated Glomerular Filtration Rate: 36.9 mL/min/1.73m2 (A) (by CKD-EPI based on SCr of 2.18 mg/dL(H)). PT/INR 10/05/2024 10/02/2024 09/30/2024 09/09/2024 09/08/2024 09/06/2024 09/05/2024 09/04/2024 12:29 AM 6:37 PM 4:34 PM 4:01 AM 1:10 AM 9:40 AM 9:37 AM 9:50 AM aPTT 30 28 -- -- -- -- -- -- INR -- -- 1.54 1.24 1.21 1.26 1.40 1.39 Lab Results Component Value Date BNP 6,470.0 (H) 09/30/2024 BNP 3,904.0 (H) 08/31/2024 Cardiac Tests Left Ventricular Ejection Fraction Date Value Ref Range Status 10/01/2024 15 % Final Impression Chronic HFrEF with low cardiac output state Severe MR and TR Plan Continue hydralazine 100 mg TID and isordil 20 mg TID Continue bumex 2 mg daily Patient continues to refuse interventions, so is not a candidate for any advanced therapies Outpatient HF follow up No further recommendations from HF team at this time. We will sign off at this time, please reach out with questions Vadim Zee MD Cardiovascular Fellow, PGY6 Department of Cardiovascular Diseases Heart and Vascular [facility] Teaching Physician Note: I saw and evaluated the patient. I personally obtained the reardon and critical portions of the historyand physical exam. I reviewed the resident's documentation and discussed the patient with the resident. I agree with the resident's medical decision making as documented in the resident's note. Aryan Cervantes MD * Jessenia Zhong, CRISTINE - 10/05/2024 12:39 AM EDT /GREG PALACIOS notified of critical Lactate value of 3.5. /LIP AH read back critical results. New orders not received. * Jessenia Zhong RN - 10/05/2024 12:12 AM EDT Patient refuses labs this morning. aware * Dominic Chacko MD - 10/04/2024 5:06 PM EDT Images from the original note were not included. [facility] Internal Medicine: TEAM 2 - Daily Progress Note Patient: Carlo Medina : 1980 Sex: male Room: [place] [address] Admit Date: 09/30/2024 Today's Date: 10/04/2024 Length of stay: 4 day(s) HOSPITAL COURSE: Carlo Medina Is a 44 year old with a pmh of HFrED (EF 15% Feburary 2024), LBBB, HTN, HLD, Hx DVT,Cirrhosis, CKD 3 who was admitted September 30 2024 for acute Decompensated Heart failure and Presumed CAP. Initially presented to ED with Shortness of breath and right sided rib/chest pain. On arrival was tachycardic, tachyphemic, and hypotensive thought oxygenating adequately on room air. Labs significant for [place], elevated alk phosph and bilirubin. He received normal saline bolus, 150 mcg fentanyl, and lidocaine patch was started on cefepime and doxycycline for suspected PNA. He got an echo that showed EF 15% with severe mitral and tricuspid regurgitation, elevated CVP. Cardiology consulted recommended resuming home hydralazine and isosorbide dinitrate. Due to rising lactate levels was transferred to CICU for IV inotopes. Arriving at CICU pt denies chest pain or shortness of breath. Stated intermittent burning chest discomfort, but not pressure like. No orthopnea but endorse paroxysmal nocturnal dyspnea w/ some LE edema. He told the ICU doctors that he only wants to be on IV inotrope drip for short duration since hedid not want ot be tied down', though no concerns of the medication itself. His CICU course was complicated by treatment refusal. He was refusion most IV meds (heparin, dobutamine, CTX) . Was able to attempt CVC/swans Maria C after discussion of untreated cardiogenic shock, but unsuccessful. Ethics consulted. He then removed his IV again, and refuse dobutamine, heparin CTX and venous catheters, since pt was not accepting ICU level care he was transferred to [facility]. SUBJECTIVE: EVENTS IN PAST 24H: Transferred to [facility] SUBJECTIVE: Pt arrived a febrile, tachycardic at 101, BP 101/90. Not in acute distress, with complaints of R sides chest pain, shortness of breath, productive cough. He feels weak. He states he is a hard peripheral stick and its hard to get IV access on him. He is understanding of appropriateness of labs, if we can get US IV access. PT does not like swallowing pills. Objective OBJECTIVE: Temperature: [97.4 F (36.3 C)-98.9 F (37.2 C)] 97.4 F (36.3 C) Heart Rate: [76-106] 106 Respiratory Rate: [19] 19 BP: (91-129)/(76-89) 97/82 I/Os: Intake/Output Summary (Last 24 hours) at 10/04/2024 1706 Last data filed at 10/04/2024 0652 Gross per 24 hour Intake 261.03 ml Output 3365 ml Net -3103.97 ml LABS: CBC: (None found w/in last 24 hrs) WBC N/A \ Hgb N/A / Plt N/A / Hct N/A \ BMP: (None found w/in last 24 hrs) N/A N/A N/A Gluc N/A N/A N/A N/A Mg PO4 Ca N/A N/A N/A (1.6-2.8) (2.5-4.8) (8.4-10) PHYSICAL EXAM: General: Lying in bed, mild pain and groaning. HEENT: EOMI. Scleral icterus. Heart: RRR. No murmurs or rub. Lungs: Diminished in RLL Abdomen: mild distension, mild tenderness in LLQ Extremities: Mild Edema to mid calf Neuro: No focal deficits. A&Ox3 Skin: Warm & dry. OTHER DATA: Left Ventricular Ejection Fraction Date Value Ref Range Status 10/01/2024 15 % Final IMAGING/OTHER: Chest x-ray was last done on 10/02/2024 Echocardiogram date: 10/01/2024 CT abdomin pelvis: 1. Right lower lobe pneumonia. 2. Moderate to large volume ascites increased compared to prior ultrasound examination. 3. No pneumoperitoneum. 4. Findings suggest underlying liver disease. Clinical correlation is recommended. 5. No urolithiasis or obstructive uropathy. 6. Cardiomegaly. Echo: Left ventricular systolic function is severely globally reduced. The left ventricular ejection fraction (LVEF) is 15% +/- 5% Diastolic LV function assessed by resting Doppler is abnormal. Mixed (concentric and eccentric) left ventricular hypertrophy is present. Right ventricular function is severely reduced. Dilated left ventricle, left atrium, right ventricle, right atrium. There is mild aortic regurgitation. There is severe mitral regurgitation. There is severe wide opened tricuspid regurgitation. The pulmonary artery systolic pressure could not be estimated. Noninvasive hemodynamic assessment is consistent with an elevated CVP, an elevated LVEDP, a low cardiac output state. CONSULTS: IP CARDIOLOGY HEART FAILURE CONSULT IP PALLIATIVE CARE CONSULT ASSESSMENT AND PLAN: SUMMARY: Carlo Medina is a 44 year old male with a history of HFrED (EF 18%), LBBB, HTN, HLD, bilateral DVT 05/2024. Cirrhosis, and CKD3 admitted with RLL PNA and Acute decompensated heart failure exacerbation with impending cardiogenic shock. Pt with capacity refusing ICU treatments/interventions, decision to transfer to floor discussed with Ethics. PROBLEM LIST: #ADF #HFrE (EF 15%) #Severe MR - BNP 6,470 - Trops 38, 38 - echo concerning for low cardiac output state, elevated CVP - Lactate down trending (5.0 -> 4.3 -> 3.5, 5.0 -> 2.0) - Lipids: Total cholesterol normal, LDL 127 Plan: - GDMT: - Afterload reduction: home hydralazine 100 TID, Isordil 20 TID - MRA: none - BB: held in CICU, will likely restart tomorrow. - SGLT2: none - Continue home eliquis 5 BID (aware that its not ideal in [place], but pt refusing IV access, heparin,and labs. He needs AC for his DVT) - refusing IV diuresis, is on Bumex 2 mg daily now #CAP - RLL consolidation on CXR - Patient with Productive cough, pleuritic pain - sating well on RA - Last CBC 10/02/2024 with leukocytosis 12.4, no fevers - BCX NGTD Plan: - Was on CTX and doxy, however pt is refusing IV and oral medications. - Has gotten 5 doses of doxy and only 1 dose of CTX - Will transition to oral meds with Augmentin and Doxy, since he has been inconsistent with doxy/CTX and WBC increasing will plan a 5 day course of Augmentin and doxy - f/u strep and legionella antigens - tylenol and lidocaine for pain - monitor CBC and fever curve #[place] on CKD - baseline Cr 1.9, admission Cr 2.64. Last Cr obtained 2.51 (10/02) Plan: - daily BMP - strict I/Os - avoid nephrotoxic agents #Cirrhosis #Moderate Ascites - CT abd - Moderate to large volume ascites increased compared to prior ultrasound examination - on admission ALP 331, D Edgar 2.40, Total Bili 5.7 - Seen by GI 09/05 admission, Recommended fibroscan at d/v - No fevers Ddx: medication non compliance vs worsening cirrhosis vs SBP MELD 28 on admission. Plan: - Consider paracentesis, though pt has refused in past - sodium restrictoin <2g per day - Fibroscan at D/c DVT Prophylaxis: Eliquis 5 BID Analgesia: Tylenol prn lidocaine patch Diet: 2 GM Sodium, 2000 cc Fluid IVF: None Code Status: Full Code Emergency Contact: PATIENT: EMERGENCY CONTACT #1: Kaitlin Hicks (Significant other) home: , work: EMERGENCY CONTACT #2: Nanci Medina (Relative) home: , work: Dispo: Home when medically ready Outpatient followup: PCP, Yuval Gayle MD Plan is preliminary until finalized by the attending physician. Dominic Chacko MD Internal Medicine Pediatrics PGY 1 Team 2 Med [phone] Cosigned by Julio Jauregui MD at 10/05/2024 9:45 PM EDT * Kathleen Burden MD, MPH - 10/04/2024 12:09 PM EDT Teaching physician note: History of Presenting Illness: As documented by the fellow/resident ROS, past medical History, past surgical History, Family/Social History and Medications: as per fellow/resident note Physical examination: as documented by the fellow/resident Assessment and Plan: 44-year-old male with a past medical history of HFrEF (EF 18% as of August 11, 2024), left bundlebranch block, hypertension, hyperlipidemia, history of DVT, cirrhosis, and CKD stage 3, admitted onApril 2024, to the family medicine service for acute decompensated heart failure and presumed community-acquired pneumonia. He initially presented to the ED with shortness of breath and right-sided rib and chest pain. On arrival, he was tachycardic, tachypneic, and hypotensive, though oxygenating adequately on room air. Labs showed acute kidney injury, elevated alkaline phosphatase, and bilirubin. He received a normal saline bolus, 150 mcg fentanyl, a lidocaine patch, and was started on cefepime and doxycycline for suspected pneumonia. He was admitted for further care. Echocardiogram showed EF 15% with severe mitral and tricuspid regurgitation, elevated central venous pressure, and a low cardiac output state. Cardiology was consulted and recommended resuming his home regimen of hydralazine and isosorbide dinitrate. Due to rising lactate levels, he was transferredto the CICU for initiation of IV inotropes. Upon arrival to the CICU, the patient denied current chest pain or shortness of breath. He did report intermittent burning chest discomfort, but no pressure- like pain. He denied orthopnea but did endorse paroxysmal nocturnal dyspnea and some lower extremity swelling. He stated he has been adherent with his medications but missed doses on Friday due to nausea, which had since resolved. He expressed a desire to be on the IV inotrope drip for only a short duration, stating he didn t want to feel tied down, though he had no concerns about the medication itself. He was counseled on the importance of medication adherence and offered treatment for nausea if symptoms return. On 10/02/2024, he refused heparin, dobutamine and ceftriaxone. He doesn't want to be attached to IV lines. On 10/02/2024, I discussed with him the seriousness of his condition and went over the high risk of in untreated cardiogenic shock. He expressed understanding and wish to live. He agreed eventually on restarting IV medications and central venous catheter/[place] catheter. He had unsuccessful attempt to place left internal jugular CVC 10/03/2024, he feels slightly better, off O2. Patient removed his IV and arterial line, refused [place] catheter, refused heparin and ceftriaxone. I re explained the gravity of his condition and offered CVC which he continued to refuse. 10/04/2024: Patient refused to continue dobutamine and asked the nurse to stop it and therefore his not being getting it. He continues to refuse central venous catheter/[place] catheter. It was re-expand to him again the seriousness his condition and the risk of should he continues to refuse to get appropriate treatment. It was explained to him that if he refused all of the above then we will transfer him to a telemetry floor as it will be no different than keeping him here. Active Medical Problems: - Acute decompensated HFrEF (EF 15%) and cardiogenic shock - Severe mitral and tricuspid regurgitation - Pneumonia - [place] on CKD stage 3 - Cirrhosis - History of DVT - Hypertension - Hyperlipidemia Plan: -Refused dobutamine, heparin infusion, ceftriaxone, central venous catheters. - goal-directed medical therapy as tolerated -Parenteral anticoagulation for recent LOWER EXTREMITIES DVT if he accepts heparin later on. - Continue antibiotics for pneumonia doxycycline, ceftriaxone once peripheral IV access is available. - Monitor renal function and volume status closely if he agrees on blood works - Provide antiemetic support if nausea recurs - Reinforce importance of medication adherence and follow-up -Palliative and ethics care consult. Code status: full EKG personally reviewed and analyzed Echocardiogram personally reviewed and analyzed Telemetry was personally reviewed and analyzed Pertinent charts, documentation, notes, and labs including CBC, BMP, BNP, troponin were personally reviewed and analyzed. I saw and evaluated the patient. I personally obtained the reardon and critical portions of the historyand physical exam. I reviewed the fellows's documentation and discussed the patient with the fellow. I agree with the fellow's medical decision making as documented in the fellow's note. Discussion of the management and/or interpretation of testing was communicated directly with the consulting health care team. Total duration of time spent with direct patient care, review of labs and imaging data, and coordination of care 30 minutes. Kathleen Burden MD MPH Stock Blender and Endovascular Specialist * Shane Omalley MD - 10/04/2024 7:53 AM EDT Images from the original note were not included. [facility] CICU - Progress Note Carlo Medina Age [age] year old male ROOM: [place] [address] Admitted 09/30/2024 4:07 PM Hospital Day: 5 Hospital Course Carlo Medina is a 44 year old male admitted on 09/30/2024 with a PMH of HFrEF (EF 18% 08/11/24), LBBB, HTN, HLD, hx DVT, cirrhosis, CKD3 who was admitted to family medicine service for acute decompensated heart failure and pneumonia. He had originally presented to the ED on 09/30 for SOB and right sided rib/chest pain. He was tachycardic, tachypneac, hypotensive, but saturating well on room air in the ED. Patient with elevated alk phos and bili as well as [place]. Received normal saline bolus, lidocaine patch, fentanyl 150 mcg x1 andstarted on cefepime and doxycycline with cocern for CAP. Admitted to family medicine. Echo done with EF 15%, severe MR, severe TR, elevated CVP and a low cardiac output state. Cardiology consulted and recommended resuming home hydroal and isordil. Lactate was up-trending so he was transferred to CICU for IV inotropes. On arrival to CICU, patient refused IV medications after one hour as he does not want to be tied down. Advised him on the importance of these medications. After GOC discussion with girlfriend at bedside, patient agreed to all measures that would prolong his life. LIJ central line and L radial arterial line placed, and medications resumed. However after 1 hour, patient requested that all medications be stopped and all lines to be removed. Patient demonstrated understanding of the risks of decompensating, possibly resulting in , but decided he does not want to be hooked up to lines. Interval Update: Overnight Events: Placed arterial line and central line (removed because catheter traveled from [facility]). All medications refused and patient requested lines be removed. Agreed to at least keep dobutamine on. Unable to get lab work, refusing peripheral sticks. Later refused dobutamine because hewas upset about the bed alarm. Vitals: BP 99/85 (BP Location: left arm) Pulse 76 Temp 98.9 F (37.2 C) (Oral) Resp 12 Ht 6'1 (1.854 m) Wt 168 lb 3.2 oz (76.3 kg) SpO2 95% BMI 22.19 kg/m Telemetry Events: 24 Hour UOP: unable to monitor, I/O: N/A Pressors: NE Vaso Phenyl Epi Sedation: Fent Prop Versed Ket [place] Numbers: PAP Mean PCWP Cardiac Index Labs: Lytes: Na 134, K 4.1, Mg 1.9 Cr: 2.33>>2.51 CBC: Hgb 13.2, WBC 10.9>>12.4, Plt 212 Gas: pH N/A, pCO2 N/A, pO2 N/A, bicarb N/A Lactate downtrending Micro: BCX NGTD Imaging: CXR after line No evidence of pneumothorax. Opacity in the right base is noted suggesting mild atelectasis and pneumonia aspiration Consults: none Subjective: Patient overall thinks he is feeling 'better'. Still some swelling in his legs but feels it's not as bad as when he came in. Believes his dry weight is ~160 pounds. Initially agreeable to labs, meds, but subsequently refused when nursing attempted to administer. Patient demonstrated capacity during the interview, acknowledges the risks of /decompensation ifhe declines treatment. He wishes to remain full code. Objective Vitals: Temperature: [98.3 F (36.8 C)-98.9 F (37.2 C)] 98.9 F (37.2 C) Heart Rate: [76-114] 76 BP: (91-110)/(76-95) 99/85 Exam: General: NAD. HEENT: Conjunctiva clear. No scleral icterus. Heart: RRR. No murmurs or rub. Lungs: Diminished in RLL otherwise CTA Abdomen: Soft. Non-distended. Non-tender. Extremities:mild lower extremity edema to mid calf. Neuro: No focal deficits. A&Ox3 Skin: Warm & dry. Labs: Temperature: [98.3 F (36.8 C)-98.9 F (37.2 C)] 98.9 F (37.2 C) Heart Rate: [76-114] 76 BP: (91-110)/(76-95) Intake/Output Summary (Last 24 hours) at 10/04/2024 0754 Last data filed at 10/04/2024 0652 Gross per 24 hour Intake 861.03 ml Output 4765 ml Net -3903.97 ml Respiratory Support: O2 Device: Room air O2 Flow Rate (l/min): 2 LABS: CBC: (None found w/in last 24 hrs) WBC N/A \ Hgb N/A / Plt N/A / Hct N/A \ BMP: (None found w/in last 24 hrs) N/A N/A N/A Gluc N/A N/A N/A N/A Mg PO4 Ca N/A N/A N/A (1.6-2.8) (2.5-4.8) (8.4-10) Cardiac Data: EKG 09/30: sinus tachycardia, intraventricular block ECHO: 10/01 Left ventricular systolic function is severely globally reduced. The left ventricular ejection fraction (LVEF) is 15% +/- 5% Diastolic LV function assessed by resting Doppler is abnormal. Mixed (concentric and eccentric) left ventricular hypertrophy is present. Right ventricular function is severely reduced. Dilated left ventricle, left atrium, right ventricle, right atrium. There is mild aortic regurgitation. There is severe mitral regurgitation. There is severe wide opened tricuspid regurgitation. The pulmonary artery systolic pressure could not be estimated. Noninvasive hemodynamic assessment is consistent with an elevated CVP, an elevated LVEDP, a low cardiac output state. Left Ventricular Ejection Fraction Date Value Ref Range Status 10/01/2024 15 % Final STRESS TEST: none CARDIAC CATH: none Images: Chest x-ray was last done on 10/02/2024 No evidence of pneumothorax. Opacity in the right base is noted suggesting mild atelectasis and pneumonia aspiration Assessment & Plan: Carlo Medina is a 44 year old male with PMHx of HFrEF (EF 18% 08/11/24), LBBB, HTN, HLD, bilateral DVT (05/2024), cirrhosis, and CKD3 admitted with RLL PNA and HFe with impending cardiogenic shock. Demonstrates capacity, repeatedly refusing intervention. Appropriate for floor transfer given he has declined all treatments/interventions that would require ICU care. This decision was discussed with Ethics insurance verification representative. Neurologic No active issues Cardiovascular # ADHF # HFrEF (EF 15% 10/02/23) # Severe MR # c/f cardiogenic shock - echo concerning for low cardiac output state, elevated CVP - downtrending lactate (5.0 -> 4.3 -> 3.5 -> 5.0 -> 2.0) - lipids: total cholesterol normal, LDL 127 Plan: - GDMT: - afterload reduction: home hydralazine 100 TID, isordil 20 TID - MRA: - BB: hold metoprolol 25 mg daily d/t c/f impending shock - SGLT2: - continue home eliquis 5 mg - inotropes: IV dobutamine 2.5 mg (refusing) - resume Lasix 80 mg IV BID (refusing; now has Bumex 2 mg daily) Respiratory #Community acquired PNA - RLL consolidation on CXR - patient with productive cough, pleuritic pain - satting well on RA Plan: - continue Ceftriaxone and azithromycin - f/u strep and legionella antigens - tylenol and lidocaine patch for pain Infectious Disease #CAP -WBC trending up, afebrile -Intermittently receiving abx d/t refusal Plan: - abx as above Renal/Electrolytes # [place] on CKD - baseline Cr 1.9, admission Cr 2.64, now 2.51 Plan: - daily BMP, Mag - strict I/O - avoid nephrotoxic agents Gastrointestinal/Liver # Cirrhosis # Moderate Ascites - CT abd- Moderate to large volume ascites increased compared to prior US examination - Seen by GI 09/05 admission. Recommended fibroscan at discharge Plan: - Consider paracentesis (refused in the past) - Sodium restriction to < 2g per day - fibroscan at discharge Endocrine #Pre-diabetes -A1c 6.1 Plan: - monitor blood glucose on BMPs Hematology/Oncology No acute issues Musculoskeletal -PT/OT when appropriate Feeding 2 GM Sodium, 2000 cc Fluid Analgesia acetaminophen (TYLENOL) 650 MG/20.3ML oral solution oxyCODONE immediate release tablet acetaminophen (TYLENOL) 650 MG/20.3ML oral solution Sedation No medications of specified category were found VTE ppx heparin (porcine) 25,000 Units in dextrose 5% 500 mL iv infusion HIGH INTENSITY And heparin (porcine) 1000 unit/mL injection HOB Elevation 30 Degrees Ulcer ppx No medications of specified category were found Glycemic Control Target 140-180 SBT N/A Bowel Regimen trimethobenzamide (TIGAN) 100 MG/ML injection Indwelling None Drug De-Escalation N/A Dispo: Home Follow up: Heart failure, GI Code Status: Full Code This plan is preliminary until finalized by an attending physician. Shane Omalley MD (he/him) Public Policy Mediator PGY-2 10/04/24 * Kathleen Burden MD, MPH - 10/03/2024 7:20 AM EDT Images from the original note were not included. [facility] CICU - Progress Note Carlo Medina Age [age] year old male ROOM: [place] [address] Admitted 09/30/2024 4:07 PM Hospital Day: 4 Hospital Course Carlo Medina is a 44 year old male admitted on 09/30/2024 with a PMH of HFrEF (EF 18% 08/11/24), LBBB, HTN, HLD, hx DVT, cirrhosis, CKD3 who was admitted to family medicine service for acute decompensated heart failure and pneumonia. He had originally presented to the ED on 09/30 for SOB and right sided rib/chest pain. He was tachycardic, tachypneac, hypotensive, but saturating well on room air in the ED. Patient with elevated alk phos and bili as well as [place]. Received normal saline bolus, lidocaine patch, fentanyl 150 mcg x1 andstarted on cefepime and doxycycline with cocern for CAP. Admitted to family medicine. Echo done with EF 15%, severe MR, severe TR, elevated CVP and a low cardiac output state. Cardiology consulted and recommended resuming home hydroal and isordil. Lactate was up-trending so he was transferred to CICU for IV inotropes. On arrival to CICU, patient refused IV medications after one hour as he does not want to be tied down. Advised him on the importance of these medications. After GOC discussion with girlfriend at bedside, patient agreed to all measures that would prolong his life. LIJ central line and L radial arterial line placed, and medications resumed. However after 1 hour, patient requested that all medications be stopped and all lines to be removed. Patient demonstrated understanding of the risks of decompensating, possibly resulting in , but decided he does not want to be hooked up to lines. Interval Update: Overnight Events: Placed arterial line and central line (removed because catheter traveled from [facility]). All medications refused and patient requested lines be removed. Agreed to at least keep dobutamine on. Unable to get lab work, refusing peripheral sticks. Later refused dobutamine because hewas upset about the bed alarm. Vitals: BP 95/83 (BP Location: left arm) Pulse 104 Temp 97.4 F (36.3 C) (Oral) Resp 12 Ht 6' 1 (1.854 m) Wt 168 lb 3.2 oz (76.3 kg) SpO2 95% BMI 22.19 kg/m Telemetry Events: 24 Hour UOP: unable to monitor, I/O: N/A Pressors: NE Vaso Phenyl Epi Sedation: Fent Prop Versed Ket [place] Numbers: PAP Mean PCWP Cardiac Index Labs: Lytes: Na 134, K 4.1, Mg 1.9 Cr: 2.33>>2.51 CBC: Hgb 13.2, WBC 10.9>>12.4, Plt 212 Gas: pH N/A, pCO2 N/A, pO2 N/A, bicarb N/A Lactate downtrending Micro: BCX NGTD Imaging: CXR after line No evidence of pneumothorax. Opacity in the right base is noted suggesting mild atelectasis and pneumonia aspiration Consults: none Subjective: Patient states that he felt like he was being treated like an old man and the nurse was rude to him. Because of this he requested his medications to be stopped. Patient states that he does not want to be connected to lines. When asked which outcome he thought was worse (being confined to bed vs risk of decompensation by refusing treatment), he agreed that cardiogenic shock would be worse. At thispoint he agreed to restart dobutamine. He is very concerned about his R rib pain returning. I explained that he needs to treat his pneumonia which is driving the pain. He agreed to resume antibiotics. There is now only 1 IV and the dobutamine/abx are not compatible through the same line. On rounds with attending, patient agreed to get an additional IV so that heparin and antibiotics could be given. Patient's diagnosis and prognosis with and without interventions were discussed in extreme detail. He stated understanding that central venous access is needed to optimize his heart failure and cardiogenic shock treatment. However, he stated he will not undergo another procedure under any circumstance. Patient repeated the risks and benefit of the medically necessary interventions discussed. Objective Vitals: Temperature: [97.4 F (36.3 C)-99.1 F (37.3 C)] 97.4 F (36.3 C) Heart Rate: [103-122] 104 Respiratory Rate: [12-29] 12 BP: (95-119)/(83-97) 95/83 Arterial BP: (112-118)/(84-87) 112/84 Exam: General: NAD. HEENT: Conjunctiva clear. No scleral icterus. Heart: RRR. No murmurs or rub. Lungs: Diminished in RLL otherwise CTA Abdomen: Soft. Non-distended. Non-tender. Extremities: no LE edema Neuro: No focal deficits. A&Ox3 Skin: Warm & dry. Labs: Temperature: [97.4 F (36.3 C)-99.1 F (37.3 C)] 97.4 F (36.3 C) Heart Rate: [103-122] 104 Respiratory Rate: [12-29] 12 BP: (95-119)/(83-97) 95/83 Arterial BP: (112-118)/(84-87) 112/84 Intake/Output Summary (Last 24 hours) at 10/03/2024 0720 Last data filed at 10/03/2024 0415 Gross per 24 hour Intake 1805.87 ml Output 50 ml Net 1755.87 ml Respiratory Support: O2 Device: Room air O2 Flow Rate (l/min): 2 LABS: CBC: (10/02/2024: 6:37 PM) WBC 12.4 \ Hgb 13.2 / Plt 212 / Hct 39.1 \ BMP: (10/02/2024: 6:37 PM) 134 100 45 Gluc 182 4.1 21 2.51 Mg PO4 Ca 1.9 4.2 8.2 (1.6-2.8) (2.5-4.8) (8.4-10) Cardiac Data: EKG 09/30: sinus tachycardia, intraventricular block ECHO: 10/01 Left ventricular systolic function is severely globally reduced. The left ventricular ejection fraction (LVEF) is 15% +/- 5% Diastolic LV function assessed by resting Doppler is abnormal. Mixed (concentric and eccentric) left ventricular hypertrophy is present. Right ventricular function is severely reduced. Dilated left ventricle, left atrium, right ventricle, right atrium. There is mild aortic regurgitation. There is severe mitral regurgitation. There is severe wide opened tricuspid regurgitation. The pulmonary artery systolic pressure could not be estimated. Noninvasive hemodynamic assessment is consistent with an elevated CVP, an elevated LVEDP, a low cardiac output state. Left Ventricular Ejection Fraction Date Value Ref Range Status 10/01/2024 15 % Final STRESS TEST: none CARDIAC CATH: none Images: Chest x-ray was last done on 10/02/2024 No evidence of pneumothorax. Opacity in the right base is noted suggesting mild atelectasis and pneumonia aspiration Assessment & Plan: Carlo Medina is a 44 year old male with PMHx of HFrEF (EF 18% 08/11/24), LBBB, HTN, HLD, bilateral DVT (05/2024), cirrhosis, and CKD3 admitted with RLL PNA and HFe with impending cardiogenic shock. Changes: -Consult palliative medicine -Consult ethics Neurologic No active issues Cardiovascular # ADHF # HFrEF (EF 15% 10/02/23) # Severe MR # c/f cardiogenic shock - echo concerning for low cardiac output state, elevated CVP - downtrending lactate (5.0 -> 4.3 -> 3.5 -> 5.0 -> 2.0) - lipids: total cholesterol normal, LDL 127 Plan: - trend lactate q6h - GDMT: - afterload reduction: home hydralazine 100 TID, isordil 20 TID - MRA: - BB: hold metoprolol 25 mg daily d/t c/f impending shock - SGLT2: - continue home eliquis 5 mg - inotropes: IV dobutamine 2.5 mg - resume Lasix 80 mg IV BID Respiratory #Community acquired PNA - RLL consolidation on CXR - patient with productive cough, pleuritic pain - satting well on RA Plan: - continue Ceftriaxone and azithromycin - f/u strep and legionella antigens - tylenol and lidocaine patch for pain Infectious Disease #CAP -WBC trending up, afebrile -Intermittently receiving abx d/t refusal Plan: - abx as above Renal/Electrolytes # SCHUYLER on CKD - baseline Cr 1.9, admission Cr 2.64, now 2.51 Plan: - daily BMP, Mag - strict I/O - avoid nephrotoxic agents Gastrointestinal/Liver # Cirrhosis # Moderate Ascites - CT abd- Moderate to large volume ascites increased compared to prior US examination - Seen by GI 09/05 admission. Recommended fibroscan at discharge Plan: - Consider paracentesis (refused in the past) - Sodium restriction to < 2g per day - fibroscan at discharge Endocrine #Pre-diabetes -A1c 6.1 Plan: - monitor blood glucose on BMPs Hematology/Oncology No acute issues Musculoskeletal -PT/OT when appropriate Feeding 2 GM Sodium, 2000 cc Fluid Analgesia acetaminophen (TYLENOL) 650 MG/20.3ML oral solution oxyCODONE immediate release tablet acetaminophen (TYLENOL) 650 MG/20.3ML oral solution Sedation No medications of specified category were found VTE ppx heparin (porcine) 25,000 Units in dextrose 5% 500 mL iv infusion HIGH INTENSITY And heparin (porcine) 1000 unit/mL injection HOB Elevation 30 Degrees Ulcer ppx No medications of specified category were found Glycemic Control Target 140-180 SBT N/A Bowel Regimen trimethobenzamide (TIGAN) 100 MG/ML injection Indwelling None Drug De-Escalation N/A Dispo: Home Follow up: Heart failure, GI Code Status: Full Code This plan is preliminary until finalized by an attending physician. Guadalupe Mccarthy, Internal medicine/Pediatrics, PGY-2 Teaching physician note: History of Presenting Illness: As documented by the fellow/resident ROS, past medical History, past surgical History, Family/Social History and Medications: as per fellow/resident note Physical examination: as documented by the fellow/resident Assessment and Plan: 44-year-old male with a past medical history of HFrEF (EF 18% as of August 11, 2024), left bundlebranch block, hypertension, hyperlipidemia, history of DVT, cirrhosis, and CKD stage 3, admitted onApril 2024, to the [facility] medicine service for acute decompensated heart failure and presumed community-acquired pneumonia. He initially presented to the ED with shortness of breath and right-sided rib and chest pain. On arrival, he was tachycardic, tachypneic, and hypotensive, though oxygenating adequately on room air. Labs showed acute kidney injury, elevated alkaline phosphatase, and bilirubin. He received a normal saline bolus, 150 mcg fentanyl, a lidocaine patch, and was started on cefepime and doxycycline for suspected pneumonia. He was admitted for further care. Echocardiogram showed EF 15% with severe mitral and tricuspid regurgitation, elevated central venous pressure, and a low cardiac output state. Cardiology was consulted and recommended resuming his home regimen of hydralazine and isosorbide dinitrate. Due to rising lactate levels, he was transferredto the CICU for initiation of IV inotropes. Upon arrival to the CICU, the patient denied current chest pain or shortness of breath. He did report intermittent burning chest discomfort, but no pressure- like pain. He denied orthopnea but did endorse paroxysmal nocturnal dyspnea and some lower extremity swelling. He stated he has been adherent with his medications but missed doses on Friday due to nausea, which had since resolved. He expressed a desire to be on the IV inotrope drip for only a short duration, stating he didn t want to feel tied down, though he had no concerns about the medication itself. He was counseled on the importance of medication adherence and offered treatment for nausea if symptoms return. On 10/02/2024, he refused heparin, dobutamine and ceftriaxone. He doesn't want to be attached to IV lines. On 10/02/2024, I discussed with him the seriousness of his condition and went over the high risk of in untreated cardiogenic shock. He expressed understanding and wish to live. He agreed eventually on restarting IV medications and central venous catheter/[place] catheter. He had unsuccessful attempt to place left internal jugular CVC 10/03/2024, he feels slightly better, off O2. Patient removed his IV and arterial line, refused [place] catheter, refused heparin and ceftriaxone. I re explained the gravity of his condition and offered CVC which he continued to refuse. Active Medical Problems: - Acute decompensated HFrEF (EF 15%) and cardiogenic shock - Severe mitral and tricuspid regurgitation - Pneumonia - SCHUYLER on CKD stage 3 - Cirrhosis - History of DVT - Hypertension - Hyperlipidemia Plan: - Continue IV inotropic support with patient education regarding goals of therapy -Refused heparin infusion, ceftriaxone, central venous catheters. - Resume home hydralazine and isosorbide per cardiology -Parenteral anticoagulation for recent LOWER EXTREMITIES DVT - Continue antibiotics for pneumonia doxycycline, ceftriaxone once peripheral IV access is available. - Monitor renal function and volume status closely - Provide antiemetic support if nausea recurs - Reinforce importance of medication adherence and follow-up -Palliative and ethics care consult. If he continued to refuse treatment, he can continue on dobutamine on tele floor with cardiology or heart failure consultation as there is no advantage of keepinghim on CICU floor as he does not want [place] catheter Code status: full EKG personally reviewed and analyzed Echocardiogram personally reviewed and analyzed Telemetry was personally reviewed and analyzed Pertinent charts, documentation, notes, and labs including CBC, BMP, BNP, troponin were personally reviewed and analyzed. I saw and evaluated the patient. I personally obtained the reardon and critical portions of the historyand physical exam. I reviewed the fellows's documentation and discussed the patient with the fellow. I agree with the fellow's medical decision making as documented in the fellow's note. Discussion of the management and/or interpretation of testing was communicated directly with the consulting health care team. Total duration of time spent with direct patient care, review of labs and imaging data, and coordination of care 30 minutes. Kathleen Burden MD MPH [employer] and Endovascular Specialist * Guadalupe Mccarthy DO - 10/02/2024 6:36 PM EDT Images from the original note were not included. On rounds with attending, patient was confronted about refusing treatment for his heart failure andimpending cardiogenic shock. Patient stated that he doesn't want to be hooked up to machines. The severity of the patient's illness and poor prognosis if not treated was reiterated to patient. He agreed to allow dobutamine through his peripheral IV but refused placing a central line in his internaljugular vein. Patient was asked if he wanted his treatment to be focused on comfort or on prolonging life. He stated he wanted to prolong life, but did not want to make a decision about line placement at that time. Patient aware that his treatment choices did not align with his goals of care but declined to speak further on the matter at that time. I later spoke to patient with girlfriend at bedside. Reviewed the patient's understanding of what lies ahead with illness and treatment. Patient stated that he knows his heart is weak and he can without appropriate medical interventions. He tearfully expressed fear about how sick he is. He stated his hope is to improve to the state of health he had before he developed heart failure. Stated his goal is to prolong his live to spend time with family. Reassured patient that the cardiology team shares the same goal. Patient states that he would do whatever it takes to get better. When treatment plan was brought up, patient stated he feared that if he went under, that he would never wake up. It was explained to the patient that he would not be receiving anesthesia, and that placing central/arterial lines are not surgical procedures. Once this misunderstanding was cleared up, patient consented to the current medical plan. * Guadalupe Mccarthy DO - 10/02/2024 5:58 PM EDT Images from the original note were not included. Spoke to patient's significant other, Kaitlin Hicks on the phone at [phone]. She stated that she understood the patient had pneumonia and had pleuritic chest pain. And she knew he has congestive heart failure. Patient's refusal of important medical interventions, and the poor prognosis of hisillness without these life saving measures was explained. It was also explained that this conflicted with patient's desire to prolong life and be full code. She agreed to come to the hospital to discuss the patient's goals of care. Spoke to patient's relative Nanci Medina at [phone]. The same information as above was given. She states that the patient needs to decide what his goals are and make decisions like an adult. She will also come to the hospital. Brother Vance Medina called from [phone] inquiring updates and was given the same information as above. Also plans to come to the hospital. * Ganga Cortes RN - 10/02/2024 9:34 AM EDT Patient refusing to be hooked to any IV medications. Physicians made aware of patient's refusal. (Heparin and IV ABX) * Ganga Cortes RN - 10/02/2024 9:21 AM EDT Patient unhooked self from monitor for bathroom. Is unmonitored at this time until he is out of bathroom * Kajal Carney RN - 10/01/2024 8:35 PM EDT This RN attempted blood draw x1 without success. Patient declining additional blood draws at this time. Patient also declining PO medications d/t nausea. Dr. Green notified. Patient declining continuous pulse ox. This RN explained importance of continuous monitoring; patient continues to decline. Dr. Green notified. Patient asked this RN to stop dobutamine infusion (see MAR). This RN explained the importance of maintaining the infusion; patient continues to decline. Dr. Green notified. * Lorena Sanders RN - 10/01/2024 3:41 PM EDT 1540: Critical lactate of 5.0, provider made aware. 1724: Rapid response RN notified of pending transfer to ICU. Vital signs stable, pt comfortable andcooperative, no concerns at this time. * Renetta Swann MD - 10/01/2024 3:00 PM EDT Images from the original note were not included. [place] [id number] [facility] INPATIENT SERVICE PROGRESS NOTE Carlo Medina 44 year old 166.4 lbs MRN/Room: [id number] : 1980 Admit Date: 09/30/2024 Chief Complaint Patient presents with Shortness of breath Pt c/o right sided rib pain, sob. Diarrhea x1 week, vomiting yesterday with cough and congestion. Hospital Course: Carlo Medina is a 44 year old male with PMHx of HFrEF (EF 18% 07/2024), LBBB, HTN, HLD, bilateral DVT (05/2024), and CKD 3 who presented to [place] ED on 09/30/2024 for SOB and R rib pain. In the ED, pt was tachycardic, tachypnic, hypotensive, afebrile, saturating well ORA, and in no acute distress. Labs notable for total bili 5.7, alk phos 331, Cr 2.64, GFR 29, MCV 105, trop 38--> 32, PT 18.2, INR 1.54, lactate 5 --> 4.3, BNP 6470, VBG without hypercapnia or acidosis. CT A/P revealed RLL PNA, mod ascites, liver disease, no urolithiasis or obstructive uropathy, and cardiomegaly. CXR showed enlargement of pericardial silhouette, no focal consolidation, no pneumothorax, or pleural effusion. Patient was given NS 500 mL bolus x3, lidocaine patch, fentanyl 150 mcg x1, and started on cefepime 2000 mg IV and doxycycline 100 mg PO. Pt was [facility]. Patients echo showed an EF of 15%, lactate levels were trended. SUBJECTIVE: Today's Interval: Admitted on 09/30/2024 Length of stay: 1 day(s) OVN: no acute events Patient seen and evaluated this morning at bedside. Was complaining of abdominal and right lower chest pain. Stated it has improved since he got mediations in the ED. Specialist Recs: IP CARDIOLOGY HEART FAILURE CONSULT SCHEDULED I/P MEDS: isosorbide dinitrate 20 mg 3x Daily acetaminophen 1,000 mg Once cefTRIAXone orderable 1,000 mg Q24H Antibiotic doxycycline 100 mg 2x Daily folic acid 1 mg Daily hydrALAZINE 100 mg 3x Daily Apixaban 5 mg 2x Daily lidocaine 1 Patch Every 24 hours PRN MEDS: metoclopramide 10 mg Q6H PRN IV MEDS: OBJECTIVE: Vital sign ranges over the past 24 hours (retrieved 10/01/2024 at 2:56 PM): Tmax (24 hours): 98.4 F (36.9 C) Pulse Av.3 Min: 96 Max: 112 Systolic (24hrs), Av , Min:93 , Max:113 Diastolic (24hrs), Av, Min:72, Max:95 MAP (mmHg) Av.3 mmHg Min: 84 mmHg Max: 91 mmHg Resp Av.4 Min: 12 Max: 27 SpO2 Av.4 % Min: 95 % Max: 100 % Patient Vitals for the past 24 hrs: BP Temp Temp src Pulse Resp SpO2 O2 Device O2 Flow Rate (l/min) 10/01/24 0830 100/85 97.7 F (36.5 C) Oral 103 18 96 % Room air -- 10/01/24 0522 -- -- -- -- -- -- Room air -- 10/01/24 0340 105/79 98.4 F (36.9 C) Oral 99 18 95 % Room air -- 10/01/24 0130 -- -- -- -- -- -- Room air -- 09/30/24 2335 -- 97.9 F (36.6 C) Oral -- -- -- Nasal cannula 2 liters 09/30/242305 105/86 -- -- 112 20 100 % Nasal cannula 2 09/30/242122 -- -- -- (!) 105 12 95 % -- -- 09/30/242121 -- -- -- (!) 112 (!) 24 95 % -- -- 09/30/242119 104/90 -- -- (!) 109 (!) 27 -- -- -- 09/30/242039 105/88 -- -- (!) 108 19 98 % -- -- 09/30/24 1950 113/95 -- -- (!) 103 15 96 % -- -- 09/30/24 1910 107/86 -- -- (!) 104 13 100 % -- -- 09/30/24 1850 93/73 -- -- (!) 106 (!) 22 100 % -- -- 09/30/24 1830 99/84 -- -- 99 19 97 % -- -- 09/30/24 1821 94/80 -- -- (!) 102 (!) 24 100 % -- -- 09/30/24 1724 -- -- -- 96 15 96 % -- -- 09/30/24 1717 96/72 -- -- 99 17 -- -- -- 09/30/24 1712 93/80 -- -- (!) 102 15 -- -- -- 09/30/24 1655 98/79 -- -- (!) 104 13 -- -- -- 09/30/24 1624 -- 97.6 F (36.4 C) -- -- -- -- -- -- 09/30/24 1619 104/91 -- -- (!) 110 (!) 21 98 % -- -- Change in Weight: Current value is 166.4 lb (75.478 kg) on 10/01/2024 at 0522 No other value found for comparison Physical Exam Constitutional: Appearance: Normal appearance. HENT: Head: Normocephalic. Nose: Nose normal. Mouth/Throat: Mouth: Mucous membranes are moist. Cardiovascular: Rate and Rhythm: Normal rate and regular rhythm. Pulmonary: Effort: Pulmonary effort is normal. Breath sounds: Examination of the right-lower field reveals decreased breath sounds. Decreased breath sounds present. Abdominal: General: Bowel sounds are normal. There is distension. Palpations: Abdomen is soft. Tenderness: There is abdominal tenderness. There is no guarding or rebound. Musculoskeletal: General: Normal range of motion. Cervical back: Normal range of motion. Right lower leg: Edema present. Left lower leg: Edema present. Skin: General: Skin is warm. Neurological: Mental Status: He is alert. Intake/Output Summary (Last 24 hours) at 10/01/2024 1456 Last data filed at 10/01/2024 0512 Gross per 24 hour Intake 2140 ml Output -- Net 2140 ml LABS: CBC/PT/INR 10/01/2024 09/30/2024 09/30/2024 4:36 AM 4:34 PM 4:21 PM WBC 10.9 -- 7.7 RBC 4.11 -- 4.57 Hgb 14.2 -- 15.6 Hct 42.8 -- 47.7 MCV 104 -- 105 RDW 14.9 -- 15.4 Plt 227 -- 299 INR -- 1.54 -- WBC/Diff 10/01/2024 09/30/2024 4:36 AM 4:21 PM Neutro% 77.0 70.4 Lymph% 19.0 21.5 Eos% -- 0.1 Basic Metabolic Panel 10/01/2024 09/30/2024 4:36 AM 4:21 PM Na 138 134 K 4.5 4.0 Cl 104 98 CO2 20 23 Gap 19 17 Glu 151 189 BUN 41 43 Cr 2.33 2.64 Ca 8.4 9.4 Mg 2.0 2.3 PO4 4.9 -- Fingerstick Glucose (last 72 hours) None LIPIDS 08/27/2024 10:35 AM Chol- esterol 204 TG 106 HDL 28 LDL 162 Chol / HDL 7.29 LDL / HDL 5.79 Non HDL 176 Hepatic/Biliary/Pancreas 09/30/2024 4:21 PM T Prot 6.5 Albumin 3.8 D Bili 2.40 T Bili 5.7 Alk Phos 331 ALT 28 AST 19 Lipase 15 Arterial Blood Gases None No results found for: HBA1C Lab Results Component Value Date TSH 0.566 08/27/2024 CULTURES: Blood Culture No lab values to display. Urine Culture (last 1 year) 08/27/2024 10:35 AM Urine culture No growth of greater than 1,000 CFU/ml No results found for the last 90 days. IMAGING: XR CHEST AP OR PA 1 VIEW Result Date: 09/30/2024 Narrative: EXAMINATION: XR CHEST AP OR PA 1 VIEW 09/30/2024 05:45 PM CLINICAL HISTORY: Chest Pain ASSOCIATED DIAGNOSIS: Chest Pain ORDERING PROVIDER: VARGAS BERG TECHNGAVIN NOTE: COMPARISON: XR CHEST AP OR PA 1 VIEW 09/04/2024, 1:20 PM FINDINGS: Lines, tubes, and devices: None. Lungs and pleura: No new focal pulmonary consolidation, effusion or pneumothorax. Cardiomediastinal silhouette: The cardiomediastinal silhouette is prominent in size and likely exaggerated by AP technique. Musculoskeletal: Unremarkable. IMPRESSION: Enlargement of the cardiopericardial silhouette without large new focal consolidation, sizable pneumothorax or pleural effusion. Limited exam. MACRO: None CT ABDOMEN/PELVIS W/O CONTRAST Result Date: 09/30/2024 IMPRESSION: 1. Right lower lobe pneumonia. 2. Moderate to large volume ascites increased compared to prior ultrasound examination. 3. No pneumoperitoneum. 4. Findings suggest underlying liver disease. Clinical correlation is recommended. 5. No urolithiasis or obstructive uropathy. 6. Cardiomegaly. Echo on 10/01/2024 Summary Left ventricular systolic function is severely globally reduced. The left ventricular ejection fraction (LVEF) is 15% +/- 5% Diastolic LV function assessed by resting Doppler is abnormal. Mixed (concentric and eccentric) left ventricular hypertrophy is present. Right ventricular function is severely reduced. Dilated left ventricle, left atrium, right ventricle, right atrium. There is mild aortic regurgitation. There is severe mitral regurgitation. There is severe wide opened tricuspid regurgitation. The pulmonary artery systolic pressure could not be estimated. Noninvasive hemodynamic assessment is consistent with an elevated CVP, an elevated LVEDP, a low cardiac output state. EK09/30/2024 Sinus tachycardia with left atrial enlargement ASSESSMENT/PLAN: Carlo Medina is a 44 year old male with PMHx of HFrEF (EF 18% 08/11/24), LBBB, HTN, HLD, bilateral DVT (05/2024), cirrhosis, and CKD 3 who presented to [place] ED on 09/30/2024 for SOB and R ribpain. ACUTE PROBLEMS: # Community Acquired Pneumonia -Pt w/ cough, dyspnea, and CXR demonstrates RLL consolidation -Admission WBC= 7.7 -PSI score= 86 points, risk class III -COVID/Influenza panel negative -Wide DDx: Bacterial PNA vs. Viral PNA vs. Aspiration PNA vs. Bronchitis vs. Lung Abscess vs. Lung Neoplasm vs. Hypersensitivity Pneumonitis -S/p cefepime 09/30 Plan: -Empiric IV CTX 1g q24hr and doxycycline 100 mg PO BID (SD 09/30) -F/u strep pneumo antigen and legionella antigen -F/u Bcx -Daily CBC, and monitor fever curve -Bronchopulmonary Hygiene # ADHF # HFrEF (18% 07/2024) # HTN - Trop 38-->32 and EKG w/o acute ischemic changes therefore low suspicion for ischemia as the precipitating cause -Admission weight: 161 lbs -BNP 6470 PLAN: - holding Bumex 2 mg BID - Isordil 60 mg TID - Hydralazine 100 mg TID - IV diuresis TBD - F/u Echo - Strict I/Os and daily weights - Keep Mg > 2 and K > 4 - HF recs - Recommend no more fluid administration, and no diuresis either for the next 48 hours - Continue to trend lactate to clearance - Resume home hydralazine 100 mg TID and isordil 20 mg TID - Resume home Bumex 1 mg BID after 48 hours - If lactic acidosis does not improve, would have low threshold to transfer for IV inotropes # SCHUYLER in setting of CKD -Baseline Cr= ~1.9 -Admission Cr= 2.64 -Suspect pre-renal 2/2 decreased renal perfusion (hx poor oral intake or sepsis) -Patient did NOT receive IV contrast in the ED -Lactate 5 --> 4.3 -S/p NS 500 mL bolus x3 Plan: -IV Fluid hydration PRN -F/u lactate -Monitor BMP -Strict I/Os -Avoid NSAIDs -Avoid nephrotoxic agents #. Cirrhosis #. Mild/moderate Ascites - CT abd- Moderate to large volume ascites increased compared to prior US examination -Wide DDx: Medication Non-compliance vs. Worsening of Underlying Cirrhosis vs. vs. Acute Infection (SBP) vs. Malignancy vs. Heart Failure -Admission MELD-Na Score= 28 points, 19.6% estimated 90-day mortality Plan: -IV diuresis TBD -Consider RUQ US with doppler/ascites survey -Sodium restriction to < 2g per day CHRONIC PROBLEMS: # Bilateral DVT - Eliquis 5 mg Chronic medications being held (check box daily after med review): [x] Bumex 2 mg BID held on 10/01/24 per HF [x] Valsartan and Toprol patient wasn't using at home will start on discharge PPX/MISC: DVT/PE Prophylaxis: Eliquis 5 mg BID GI Prophylaxis: None Bowel Regimen: None Pain Control: None Diet: Full Liquid Fluids: PO Code: Full Code Dispo: Home Follow-ups: PCP, Cardiology Anticipate discharge once above concerns are resolved. Plan is preliminary until discussed with/finalized by attending physician, Lance Ta MD Wadoodoollah Shamsi, MD Family Medicine, PGY-1 FM Team Pager: [phone] * Lesly Luna RN - 10/01/2024 12:20 PM EDT CM reviewed patient's chart. Patient lives in a home with his girlfriend and her brother. There are 4 steps into the home. Bedroom and bathroom are on the first floor. Patient states he is independent at home and does not require an assistive device for ambulation. Patient's girlfriend provides transportation. Patient anticipates discharge to home when medically ready with no needs. 10/01/24 1216 Assessment and Discharge Planning Evaluation READMISSION LESS THAN 30 DAYS Yes READMISSION RISK SCORE IS Rising Risk CLINICAL REASON Multiple Comorbidities PATIENT'S VIEW OF READMISSION Multiple Comorbidities Arriving from Outside Facility? No INTERVIEWED Patient;Chart Review COGNITIVE STATUS Oriented FUNCTIONAL STATUS PRIOR TO ADMISSION Age Appropriate;Ambulatory;Independent with ADL's HAS ADVANCE DIRECTIVE ON FILE No LIVING SITUATION Home with Family Number of Steps 4 or greater Bedroom floor level 1 Bathroom Floor Level 1 CONNECTED TO MENTAL HEALTH SERVICES No CONNECTED TO COMMUNITY SERVICES No CONNECTED TO SUBSTANCE ABUSE SERVICES No ADMISSION INSURANCE Private Insurance ([facility] INDIVIDUAL EXCHANGE/[employer] INDIVIDUAL EXCHANGE) TRANSPORTATION TO AND/OR FROM APPOINTMENTS Family/Friend Provides Ride HOME OXYGEN No HOME HEALTH CARE PRIOR TO ADMISSION No DIALYSIS No DISCUSSSED WHAT HELP PATIENT WOULD NEED Yes SDOH Risks Addressed - Do Not complete until all required hernandez are completed Yes DISCHARGE DISPOSITION Home Reason for Readmisson Risk Score Other CM will remain available to assist with discharge planning and needs as warranted. Lesly Luna RN, BSN Case Management [phone] M-F 7:30-4:00 * Ramin Lopez RN - 10/01/2024 4:[address] Hutchinson notified of critical Lactate value of 3.5. Dr. Hutchinson read back critical results. New orders not received. documented in this [id number] Progress note* Progress Notes - Willie - Julio Jauregui MD - 10/05/2024 1:18 PM EDT Attending/Teaching Physician Note: I saw and evaluated Carlo Medina. I personally obtained the reardno and critical portions of the history and physical exam. I reviewed the resident's documentation and discussed the patient with the resident. I agree with the resident's medical decision making as documented in the resident's note. Additional Findings, Impression and Plan: Mr. Carlo Medina is a 44yo M w PMH HFrEF (dx 05/2024), HTN, CKD, hx of DVT who was admitted 09/30for SOB and pleuritic pain found to be in cardiogenic shock and acute on chronic renal failure. Dueto patient demands, IV medications were discontinued and he was transferred to [facility]. This am, he is in agreement with PO medication plan and agreeable to replace the PIV. He is hesitant about ICD but o pen to speaking w cardiology about it. Overall understanding of his medical issues not explored this am on first meeting. Per prior notes, he lacks insight and understanding. That said, he is pursuing signing up for disability for his 'heart and lung issues' so there may be a way to link these nextmeeting. When asked about code status he requests full code. Vs reviewed AF. Normotensive to soft -MAPs reported wnl. RA Exam: Thin, slight anxious appearing. PERRL, EOMI. JVP at tragus. S1 w systolic murmur. Trace pitting. Abdomen distended +BS and soft. Labs and imaging reviewed w team including CTAP, TTE and BMP trend. Hospital Problems as of 10/05/2024 HFrEF (heart failure with reduced ejection fraction) (HCC) Acute kidney injury superimposed on CKD (HCC) Pneumonia of right lower lobe due to infectious organism Acute decompensated HFrEF w/o LHC as far as could be found on chart rv- pt thinks he has had one. Ischemic cause still possible, that said, no acute ischemia on admission w stable ECG and HSTs. Other causes like TachyCM/Substance use considered but not found to date. Stay complicated by patients concerns with and demands around care plan along with lack of understanding of severity of his disease. Multiple providers have counseled and attempted to educate w/o clear improvement - in particularHF saw today and not deemed a candidate for ICD/vest given lack of compliance to date. Note that hedid f/u with Cardiology in 07/2024 clinic at which point similar observation about lack of understanding/insight. Ethics also involved here. Next steps not completely clear - he is agreeable to PO meds and based on todays BMP at least kidney function is better w some diuresis - note of LA which we will monitor if he agrees to labs. At this point, Pall care/family mtg may be necessary at least to document discussion of and attempt to debt counselor pt and girlfriend on the severity of disease and to address code status again. On tele. Julio Jauregui MD [facility] Work Phone: [phone] Miscellaneous Notes* Progress Notes - NoteWriter - Julio Jauregui MD - 10/05/2024 1:18 PM EDT Attending/Teaching Physician Note: I saw and evaluated Carlo Medina. I personally obtained the reardon and critical portions of the history and physical exam. I reviewed the resident's documentation and discussed the patient with the resident. I agree with the resident's medical decision making as documented in the resident's note. Additional Findings, Impression and Plan: Mr. Carlo Medina is a 44yo M w [facility] HFrEF (dx 05/2024), HTN, CKD, hx of DVT who was admitted 09/30for SOB and pleuritic pain found to be in cardiogenic shock and acute on chronic renal failure. Dueto patient demands, IV medications were discontinued and he was transferred to [facility]. This am, he is in agreement with PO medication plan and agreeable to replace the PIV. He is hesitant about ICD but o pen to speaking w cardiology about it. Overall understanding of his medical issues not explored this am on first meeting. Per prior notes, he lacks insight and understanding. That said, he is pursuing signing up for disability for his 'heart and lung issues' so there may be a way to link these nextmeeting. When asked about code status he requests full code. Vs reviewed AF. Normotensive to soft -MAPs reported wnl. RA Exam: Thin, slight anxious appearing. PERRL, EOMI. JVP at tragus. S1 w systolic murmur. Trace pitting. Abdomen distended +BS and soft. Labs and imaging reviewed w team including CTAP, TTE and BMP trend. Hospital Problems as of 10/05/2024 HFrEF (heart failure with reduced ejection fraction) (HCC) Acute kidney injury superimposed on CKD (HCC) Pneumonia of right lower lobe due to infectious organism Acute decompensated HFrEF w/o LHC as far as could be found on chart rv- pt thinks he has had one. Ischemic cause still possible, that said, no acute ischemia on admission w stable ECG and HSTs. Other causes like TachyCM/Substance use considered but not found to date. Stay complicated by patients concerns with and demands around care plan along with lack of understanding of severity of his disease. Multiple providers have counseled and attempted to educate w/o clear improvement - in particularHF saw today and not deemed a candidate for ICD/vest given lack of compliance to date. Note that hedid f/u with Cardiology in 07/2024 clinic at which point similar observation about lack of understanding/insight. Ethics also involved here. Next steps not completely clear - he is agreeable to PO meds and based on todays BMP at least kidney function is better w some diuresis - note of LA which we will monitor if he agrees to labs. At this point, Pall care/family mtg may be necessary at least to document discussion of and attempt to debt counselor pt and girlfriend on the severity of disease and to address code status again. On tele. Julio Jauregui MD * Transfer Note - Shane Omalley MD - 10/04/2024 4:08 PM EDT Images from the original note were not included. . Provider Called Report To (Enter Provider Name, Service, and Time): Eugene Nova MD, Med Resident Teams 16:30 CICU Transfer Note Patient: Carlo Medina : 1980 Sex: male Room: [place] [address] Admit Date: 09/30/2024 Today's Date: 10/04/2024 Hospital Day: 5 Reason for Transfer: Declining all interventions that would require ICU status Hospital Course 44 year old male with a history of HFrEF (EF 18% 08/11/24), LBBB, HTN, HLD, hx DVT, cirrhosis, CKD3 presented to the ED 09/30/2024 4:07 PM for SOB and pleuritic chest pain. Admitted for ADHF and PNA to the floor, but was transferred to CICU on the evening of 10/01 for worsening lactate. Patient's ICU course significantly complicated by patient's refusal of nearly all medications, interventions, and lab work. Was intermittently diuresed with IV Lasix with some success (aided by dobutamine), but by 10/04 patient was persistently declining all interventions that would require further ICU care. After discussion with ethics and given that patient continues to demonstrate capacity, transferred to the floor 10/04 to continue management. Objective Vital sign ranges over the past 24 hours (retrieved 10/04/2024 at 4:38 PM): Tmax (24 hours): 98.9 F (37.2 C) Pulse Av.7 Min: 76 Max: 106 Systolic (24hrs), Av , Min:91 , Max:129 Diastolic (24hrs), Av, Min:76, Max:89 MAP (mmHg) Av.6 mmHg Min: 84 mmHg Max: 103 mmHg Resp Av Min: 19 Max: 19 SpO2 Av % Min: 95 % Max: 97 % To Do During Admission: []Continue Abx for PNA []Palliative Consult to determine goals of care. [] Diurese orally as able [] Heparin for DVT (but is refusing) On Discharge: [] [] [] Signature Shane Omalley MD (he/him) Public Policy Mediator PGY-2 10/04/24 * Discharge Planning Note - Michelle Umana RN - 10/04/2024 12:39 PM EDT CASE MANAGEMENT CM aware Ethics is following d/t patient declining recommended medical interventions. Per MD Burden, patient is competent to make his own medical decisions. SW/CM has reviewed patient's chart and assessed that there are no discharge planning needs at this time. The following was reviewed to determine no SW/CM needs warranted. 1). PT/OT evaluations indicate pt can DC home with no needs or PT/OT evaluations are not warranted. 2). No wound care or IV Antibiotics indicated at this time. 3). No SW/CM consults placed through nursing admission screen 4). Pt does not meet the criteria of being a Medicare recipient that has a high or rising readmission rate. Patient will continue to be discussed in multi-disciplinary rounds and monitored daily. If any of the the above changes, SW/CM will complete appropriate assessments and interventions. Case management will continue following patient for further discharge needs as warranted. Michelle Umana BSN RN CMSRN PRN Business Manager [employer] * Progress Notes - Anne Marieridustin - Soraida Pedroza RN - 10/04/2024 12:30 AM EDT 12:30 AM Patient refusing labs at this time * Hospital Course - Guadalupe Mccarthy DO - 10/03/2024 11:10 AM EDT Carlo Medina is a 44 year old male admitted on 09/30/2024 with a PMH of HFrEF (EF 18% 08/11/24), LBBB, HTN, HLD, hx DVT, cirrhosis, CKD3 who was admitted to family medicine service for acute decompensated heart failure and pneumonia. He had originally presented to the ED on 09/30 for SOB and right sided rib/chest pain. He was tachycardic, tachypneac, hypotensive, but saturating well on room air in the ED. Patient with elevated alk phos and bili as well as SCHUYLER. Received normal saline bolus, lidocaine patch, fentanyl 150 mcg x1 andstarted on cefepime and doxycycline with cocern for CAP. Admitted to [facility]. Echo done with EF 15%, severe MR, severe TR, elevated CVP and a low cardiac output state. Cardiology consulted and recommended resuming home hydroal and isordil. Lactate was up-trending so he was transferred to CICU for IV inotropes. On arrival to CICU, patient refused IV medications after one hour as he does not want to be tied down. Advised him on the importance of these medications. After GOC discussion with girlfriend at bedside, patient agreed to all measures that would prolong his life. LIJ central line and L radial arterial line placed, and medications resumed. However after 1 hour, patient requested that all medications be stopped and all lines to be removed. Patient demonstrated understanding of the risks of decompensating, possibly resulting in , but decided he does not want to be hooked up to lines. * Progress Notes - NoteWriter - Soraida Pedroza, CRISTINE - 10/03/2024 12:58 AM EDT 12:58 AM Unable to obtain lab work due to lack of access, patient is difficult stick and refusing peripheralsticks. * Transfer Note - Carleen Weber MD - 10/01/2024 4:00 PM EDT TRANSFER NOTE Patient: Mr. Carlo Medina, a 44 year old (Full Code) Room: [address] [id number] 1980 FROM [facility] TO cardiac icu Admit Date: 09/30/2024 Today's Date: 10/01/2024 Length of stay: 1 day(s) HOSPITAL COURSE: Carlo Medina is a 44 year old male w/ PMH of HFrEF (18% by TTE 08/11/24), LBBB, HTN, HLD, bilateral DVT (05/2024), and CKD 3 who presented to [place] ED on 09/30/2024 for SOB and R rib pain, admitted for management of lower lobe pneumonia. Started on Doxycycline/Ceftriaxone (SD 4/3 - ) for management of CAP. Initial labs notable for lactic acidosis. Pt given total 1.5L of IV fluids for management of hypoperfusion. Patient found to have ascites on imaging, and history of out of network echocardiogram showing EF 18%, TTE ordered, showing worsening of EF to 15 +/-5% with severe tricuspid regurgitation. Cardiology consulted inpatient and given severity of cardiac dysfunction, worsening of l actic acidosis to 5.0, and fine balance between fluid resuscitation and diuresis, patient was recommended to transfer to CICU for iv inotropes in the short term. TO DO: [] Complete course of ceftriaxone and doxycycline (SD 4/3) for CAP [] F/u strep pneumo and legionella [] F/u blood cultures [] Optimize GDMT as able [] Inpatient workup of cirrhosis vs Outpatient liver clinic Disposition: TBD Inpatient CONSULTS: IP CARDIOLOGY HEART FAILURE CONSULT Outpatient f/u: PCP PROBLEM LIST: Refer to progress notes Report called to dialysis clinical manager at 6:36 PM Carleen Weber MD Family Medicine PGY-2 documented in this [id number] Consult note* Deena Yan, OT - 10/05/2024 12:13 PM EDT Occupational Therapy Spoke to patient in room. Patient reports he is not feeling well this date, but reports he has no concerns in regards to his function for home-going. Patient reports when he is feeling well he is independent with mobility and ADLs. Will d/c from acute OT at this time. Explained to patient that if any new difficulties arise in regards to his function while in acute care he can ask the medical team to re-consult therapy . Deena SHOOK OTR/L (Message Via Secure Chat as Needed) [id number] Consult note* Deena Yan OT - 10/05/2024 12:13 PM EDT Occupational Therapy Spoke to patient in room. Patient reports he is not feeling well this date, but reports he has no concerns in regards to his function for home-going. Patient reports when he is feeling well he is independent with mobility and ADLs. Will d/c from acute OT at this time. Explained to patient that if any new difficulties arise in regards to his function while in acute care he can ask the medical team to re-consult therapy . Deena SHOOK OTR/L (Message Via Secure Chat as Needed) * Calin Hearn - 10/03/2024 6:37 PM EDTAssociated Order(s): ETHICS COMMITTEE CONSULT Clinical Ethics was consulted by the medical team on 10/03/2024 regarding the care of Carlo Medina, especially given his declination of recommended medical interventions. Clinical Ethics spoke with Kylie Dan MD and provided initial recommendations including considering the involvement of Spiritual Care and other services that may provide additional support to Mr. Medina given his anxiety/distress associated with medical interventions, and encouraging Mr. Medina to designate his preferred surrogate/s to participate in medical decisions on his behalf should he lack/lose the capacity to do so himself. Clinical Ethics will touch base with the primary team tomorrow to further discuss concerns around the care of Mr. Medina. Please contact us with any questions or if we can be of any further assistance. Calin Hearn MD, [facility] Clinical Ethics Fellow, [place] [employer] 20/01 Clinical Ethics Consult Pager: [phone] * Faith Gan PT - 10/03/2024 9:00 AM EDT PHYSICAL THERAPY-DISCHARGE Attempted to see patient for PT session, however pt currently declining any further therapy needs. Patient reporting independence with functional mobility and no concerns for a decline in his independence. Pt requesting DC from PT services Will respectfully DC PT Faith Gan PT, DPT Secure chat with questions * Luba Trujillo - 10/02/2024 5:07 PM EDTAssociated Order(s): IP OCCUPATIONAL THERAPY SERVICE REQUEST OCCUPATIONAL THERAPY INITIAL EVALUATION Patient seen from 1513 to 1545 on 7W unit for 32 minutes. (Eval+ treat) RN approved seeing patient.Girlfriend present during session. HIPPA: verbal permission granted from patient to discuss case, including protected health information, in front of family/friends in the room at the time of evaluation. Patient offered the option of having friend/family member leave the room for the exam and declined. Reason for Admit: 44 y/o male presented to ED on 09/30/24 for SOB and right rib/chest pain. He was tachy, tachypneac, hypotensive for acute decompensated heart failure and PNA Diagnosis: ADHF HFrEF Severe MR Cardiogenic shock PNA Hypervolemia SCHUYLER Precautions/Activity Order: Moderate Falls Full Code Progressive Mobility 2GM 2000 cc fluid Past Medical and Surgical History: PMH: Past Medical History: Diagnosis Date Chronic systolic heart failure (HCC) DVT (deep venous thrombosis) (HCC) Hypercholesteremia Iron deficiency anemia Stage 2 chronic kidney disease Vitamin D deficiency PSH: No past surgical history on file. SUBJECTIVE: Patient Subjective: I just take them off when I need to go to the bathroom - Pt referencing to leads he unhooks from monitor to go to bathroom, RN aware of pt removing. Patient Identified Goal(s):return home Home Living Situation Prior Functional Status: Independent Living independent with Activities of Daily Living Independent Ambulation without assistive device no device Assistance with Instrumental Activities of Daily Living - girlfriend completes all heating and ventilating drafter, driving and meals (-) works, in the process of applying for disability (-) falls Assistance Available at Home: Girlfriend 20/01 Patient lives in a [place] home 4 stairs to enter. Full Bathroom on residing level and Bedroom on residing level. Equipment available at home: no equipment OBJECTIVE: Patient Identification: patient verbalizing his/her name and date of . 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 Right side rib pain intermittently Pain Relief Interventions Implemented: Positioning, Rest, and Notified Nurse Self Care: Assistance Level Dep Max Mod Min CG CS DS ND I Set-Up Comment Feeding X Per pt Grooming/Hygiene X Anticipate sink level standing Bathing:UB X Simulated during UE AROM screen seated level Bathing:LB X Anticipate seated level Dressing:UB X Simulated seated at EOB during UE AROM screen Dressing: LB X Standing level clothing mgmt, girlfriend assisted with adjusting pants Toileting X Pt reports he has been up taking himself to the bathroom denies any concerns with hygiene and clothing mgmt Transfers/Bed Mobility: Assistance Level Dep Max Mod Min CG CS DS ND I Set-Up Comment Toilet Transfers X Anticipate based on sit <> stand from bed Bed Transfers X Sit <.> stand no AD Bed Mobility X Supine <> sit, HOB elevated Functional Mobility X Few steps without AD, no overt LOB mild SON Endurance for Self Care: Impaired Vitals (seated) Pre-Mobility Post Mobility Oxygen 100% RA 100% RA Heart Rate 107 bpm 113 bpm BP 119/87 116/88 Static Sitting Balance: Good Dynamic Sitting Balance: Good UE Motor: (B) UE AROM WFL all planes of motion. NO formal MMT applied appears to be WFL for age norms evidentby use during functional mobility Vision/Perception: WFL Cognition: Orientation: Oriented to person, place, time, and situation Follows Commands: WFL Attention: WNL Memory: WFL Problem Solving: WFL Safety/Judgement: Impaired, pulls tubes or medical devices (removes leads to go to restroom but RN aware), impulsive, and lacks insight into impairments Sequencing: WFL Other Specialized Tests: None Patient/Family Education and therapeutic skilled interventions used: Instructed patient in roles oftherapy and Patient instructed in importance of pacing self, incorporating rest breaks during functional tasks, importance of self monitoring and vital sign monitoring during functional mobility. Training in safe and correct transitional movements and techniques to increase safety for ADL's in unsupported standing. Pt required min to mod verbal cues for carryover of energy conservation and safetytechniques requiring need for further education and instruction. Patient up in bed with call light in reach. DME: With Patients permission ordered no equipment via adicate timeads Order. If any questions contact [facility] DME Provider at [phone]. 10/02/2024 6 Clicks Daily Activity OT Help from another person Eating meals 4 Help from another person taking care of personal grooming 3 Help from another person bathing 3 Help from another person putting on and taking off regular upper body clothing 3 Help from another person putting on and taking off regular lower body clothing 3 Help from another person toileting 3 OT 6 Clicks Score 19 6 Click Score Guidelines: 1 - Unable = Total/Dependent Assist 2 - A lot = Max/Moderate Assist 3 - A little = Minimum/Contact Guard Assist/Supervision 4 - Non = Modified [place]/Independent ASSESSMENT: Will continue to follow patient while in hospital as appropriate Patient is functionally appropriate for discharge home once medically cleared. Recommend PRN family/caregiver assist for IADLs Rehabilitation Potential: Good Problem List: decreased ADLs, impaired upper extremity motor function, decreased endurance, decreased functional transfers/mobility, impaired balance, decreased home management tasks/IADLs, decreasedfunctional activity tolerance, and increased pain Goals (to be achieved by discharge from acute care): Patient will perform grooming with Modified Independent Patient will dress upper body with Modified Independent Patient will dress lower body with Modified Independent Patient will perform bed mobility with Modified Independent Patient will perform bathing with Modified Independent Patient will perform toileting with Modified Independent Patient will perform bed transfers with Modified Independent Patient will perform commode transfers with Modified Independent Patient will increase endurance sufficient to perform tolerate up to 10 minutes of functional standing task with rest breaks as needed Report reduced pain level to allow for participation in ADL/IADL PLAN: Carlo Medina will be seen x1-3 times a week. Treatment to include: Functional AROM/Strengthening, functional mobility training, ADL retraining, functional endurance activities, work simplification / energy conservation, home management retraining, adaptive equipment / compensatory strategy training, patient / family education and discharge estee nning, referral to appropriate support services, and pain Management able to discuss the evaluation findings and treatment plan with the patient/family. The patient/family did participate in the development of plan and goals. Luba Trujillo MOT, OTR/L NA = Not Assessed, I = Independent, ND = Modified Independent, Sup = Supervised, Set up = Physical Assistance for Set-up Only, Min = Minimal Assistance, Mod = Moderate Assistance, Max = Max assistance; Dep = Dependent; AROM = Active Range of Motion;PROM=Passive Rangeof Motion; MMT = Manual Muscle Test; UB = Upper Body; LB = Lower Body * Rosaline Rivero, PT - 10/02/2024 12:46 PM EDTAssociated Order(s): IP PHYSICAL THERAPY SERVICE REQUEST PHYSICAL THERAPY ACUTE EVALUATION Referral received, chart reviewed. Patient seen from 923 to 955 on CICU unit for 32 minutes. Eval + Tx Admit date: 09/30/2024 4:07 PM Reason for Admit: 44 year old male presenting with PNA, ADHF, concern for cardiogenic shock Diagnosis: Pneumonia of right lower lobe due to infectious organism [J18.9] Hypervolemia, unspecified hypervolemia type [E87.70] HFrEF (heart failure with reduced ejection fraction) ([facility]) [I50.20] Acute kidney injury superimposed on CKD (HCC) [N17.9, N18.9] Precautions: Falls Risk: Moderate Code Status: Full Diet: 2 GM sodium, 2000 cc fluid Activity Orders: Progressive mobility Past Medical and Surgical History: PMH: Past Medical History: Diagnosis Date Chronic systolic heart failure (HCC) DVT (deep venous thrombosis) (HCC) Hypercholesteremia Iron deficiency anemia Stage 2 chronic kidney disease Vitamin D deficiency PSH: No past surgical history on file. Identification was verified by patient verbalizing his/her name and date of . Risks and Benefits of physical therapy: Patient informed of risks and benefits of treatment SUBJECTIVE: Patient Subjective: I just got back from the bathroom and now I need to catch my breath and let meheart slow down. 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 0 steps to bedroom/bathroom Assistance available: 20/01 between girlfriend and girlfriend's brother Equipment available: none OBJECTIVE: Appearance: Pt supine, EKG, pulse ox, BP cuff all unhooked from monitor by patient to use restroom (RN aware and PT adjusted EKG and pulse ox for monitoring) Behavior: Patient very anxious throughout often times increasing RR with difficulty following cues for deep breathing. Self limiting behaviors needing extensive encouragement and education on purposeof PT in acute setting. Thankful for PT services at end of session Orientation: A&O 4 Command Following: Follows multi step commands consistently Pain: Pain location abdomen I think it's my kidneys , Scale 4/10; Pain Relief Interventions Implemented: Positioning and Notified Nurse Skin: Intact in all visible areas Sensation: Denied numbness or tingling Coordination: WFL AROM: BUEs and BLEs WFL Strength: BUEs and BLEs grossly 4+/5 Balance: Good dynamic sitting, close supervision during dynamic standing Transfers/Bed Mobility Assistance Level Dep Max Mod Min CG CS DS ND I Set-Up Comment Supine to Sit X Cues for sequencing Sit to/from Stand X No device Transfers X No device cues for deep breathing Ambulation X 3 ft without device: overall steady on feet but fatigues quickly with increased RR anddesat to 75% on 4L but patient nearly hyperventilating seemingly very anxious with mobility. Session ended patient sitting up in chair. Chair alarm in place d/t falls risk. Call kaufman and telephone within reach. Patient instructed to call for staff assist for all mobility. RN aware of patientlocation and mobility status. Endurance: Impaired Vitals Pre-Mobility During Mobility Post Mobility Heart Rate 113 bpm 115 bpm 109 bpm Oxygen Intermittent 80-92 on room air 75% on 4L, 92% Respiratory Rate Fluctuated from 17 to 40 Fluctuated from 20-35 33 BP 116/85 Patient/Family Education: Educated on PT role in acute care setting Precautions including balancing activity with rest ,deep breathing, benefits of sitting upright. Limit chair sitting </= 2 hours at a time Review and emphasis on importance of continued mobility in the hospital setting Educated patient not to stand or mobilize without staff assist to reduce risk for falls Use of call kaufman and nursing assistance Discussed post acute recs Answered patient questions/concerns Treatment: Education as stated above, safety and sequencing with mobility, functional transfers forstrengthening and improved functional tolerance, standing tolerance, balance, therex (AP, SLR, LAQ,seated marching, GS) x 10 10/02/2024 6 Clicks Basic Mobility PT Difficulty turning over in bed 4 Difficulty sitting down and standing up from a chair with arms 3 Difficulty moving from lying on back to sitting on the side of the bed 3 Help from another person moving to and from bed to a chair 3 Help from another person to walk in hospital room 3 Help from another person climbing 3-5 steps with a railing 1 PT 6 Clicks Score 17 6 Click Score Guidelines: 1 - Total = Requires total assistance, or cannot do at all. 2 - A lot = Requires a lot of help (maximum to moderate assistance) Can use assistive devices. 3 - A little = Requires a little help (supervision, minimal assistance) Can use assistive devices. 4 - None = Does not require any help and does the activity independently. Can use assistive devices. ASSESSMENT: At time of evaluation, pt demonstrates decreased strength, endurance, and balance limiting independence with functional mobility. Pt presenting below baseline status, will benefit from PT services during hospitalization to address. Anticipate patient will be appropriate for discharge home following1-2 acute Physical Therapy sessions. Will continue to follow patient while in hospital as appropriate. Recommend PRN family/caregiver assist for IADLs Problems: Pain Decreased ROM/strength Decreased functional mobility Decreased endurance Decreased balance Decreased education in exercise/precautions Decreased cognition/behavior Impaired safety awareness Rehabilitation Potential: Good Goals (to be achieved by discharge from acute care): Patient will perform bed mobility independent Patient will perform sit tofrom stand without device independent Patient will transfer from bed to/from chair without device independent Patient will demo ability to ambulate >/= 75 ft without device independent and ability to turn, side step and retro step without observed loss of balance Patient will demo ability to negotiate 4 steps with 1 handrail mod I PLAN OF CARE: Frequency: Patient to be seen 3-5 times a week Interventions: Functional mobility ROM/Strengthening Home exercise program Discharge planning and equipment ordering as needed Patient /Family education The evaluation findings and treatment plan were discussed with the patient/family. The patient/family indicated understanding and agreement with the plan. Rosaline Rivero PT, DPT NA = Not Assessed, I = Independent, ND = Modified Independent, Sup = Supervised, Set up = Physical Assistance for Set-up Only, Min = Minimal Assistance, Mod = Moderate Assistance, Max = Max assistance; Dep = Dependent; AROM = Active Range of Motion; PROM = Passive Range of Motion; MMT = Manual Muscle Test; LE = Lower Extremity; VC = verbal cues; TC = tactile cues; PLB = pursed lip breathing * Aryan Cervantes MD - 10/01/2024 10:00 AM EDTAssociated Order(s): IP CARDIOLOGY HEART FAILURE CONSULT Images from the original note were not included. New Patient Consult HF Consult Service 10/01/2024 10:00 AM Name: Carlo Medina Room: AC3-709/2 : 1980 male 44 year old Admit Date: 09/30/2024 Length of stay: 1 day(s) Consultation Requested by: Lance Ennis MD PCP: Yuval Gayle MD REASON FOR CONSULT Elevated BNP HPI 44 year old male with: - HFrEF EF 18%, NICM - LBBB - HTN - HLD - Bilateral DVT on apixaban - CKDIII Presents with SOB and cough, found to have R PNA. Also has elevated TB and alk phos. CT scan with RPNA, moderate to large ascites, and suggestive of liver disease. We are consulted for GDMT management and elevated NTproBNP Patient with elevated lactate on arrival to 5, improved to 3.5 with fluids, continues to trend down. Follows at [facility]. Last seen recently in Jul, with some medication changes but he unfortunately did not pick those medications up. Cardiac medications: Current Cardiac Medications Direct Factor Xa Inhibitors Instructions Apixaban (ELIQUIS) tablet 5 mg, Oral, 2 TIMES DAILY Vasodilators Instructions hydrALAZINE (APRESOLINE) tablet 100 mg, Oral, THREE TIMES DAILY 0900, 1300, 1700, Sound-Alike / Look-Alike WARNING: Please confirm medication selection. CARDIAC ROS As above PMH Past Medical History: Diagnosis Date Chronic systolic heart failure (HCC) DVT (deep venous thrombosis) (HCC) Hypercholesteremia Iron deficiency anemia Stage 2 chronic kidney disease Vitamin D deficiency PSH No past surgical history on file. FH No family history on file. SOC. HX Social History Tobacco Use Smoking status: Never Smokeless tobacco: Never ALLERGIES Allergies Allergen Reactions Torsemide Vomiting Reports did not tolerate, refuses to take again Sacubitril-Valsartan Vomiting MEDICATIONS IP MEDS: acetaminophen 650 mg Once cefTRIAXone orderable 1,000 mg Q24H Antibiotic doxycycline 100 mg 2x Daily folic acid 1 mg Daily hydrALAZINE 100 mg 3x Daily Apixaban 5 mg 2x Daily lidocaine 1 Patch Every 24 hours IV: PRN: metoclopramide 10 mg Q6H PRN MEDICATIONS GRAVE DIGGER: Prior to Admission medications Medication Sig Start Date End Date Taking? Authorizing Provider Apixaban (ELIQUIS) 5 MG tablet Take 5 mg by mouth 2 times daily. [facility] PROVIDER Cholecalciferol 50 MCG (1999) CAPS Take 1 Capsule by mouth daily. NON- [facility], PROVIDER losartan (COZAAR) 50 MG tablet Take 50 mg by mouth daily. 08/04/24 08/04/25 [facility]- [facility], PROVIDER losartan (COZAAR) 25 MG tablet 07/30/24 [facility], PROVIDER magnesium oxide (MAG-OX) 400 (240 Mg) MG TABS tablet Take 400 mg by mouth daily. 07/31/24 [facility], PROVIDER metoprolol (TOPROL-XL) 25 mg XL tablet Take 25 mg by mouth daily. 08/21/24 08/21/25 [facility], PROVIDER pantoprazole (PROTONIX) 40 MG tablet Take 40 mg by mouth daily. NON-[facility], PROVIDER potassium chloride SA (K-DUR) 20 MEQ controlled release tablet 07/30/24 NON- [facility], PROVIDER sodium bicarbonate 650 MG tablet Take 2 Tablets by mouth 2 times daily. NON- [facility], PROVIDER spironolactone (ALDACTONE) 25 MG tablet Take 25 mg by mouth daily. 08/04/24 08/04/25 [facility], PROVIDER hydrALAZINE (APRESOLINE) 25 MG tablet 1 tablet with food Orally three times a day NON-[facility], PROVIDER isosorbide dinitrate (ISORDIL) 20 MG tablet Take 3 Tablets by mouth 3 times daily. [facility], PROVIDER metoclopramide (REGLAN) 5 MG tablet Take 1 Tablet by mouth 4 times daily (before meals and at bedtime). Prn 09/17/24 Yes Yuval Gayle MD bumetanide (BUMEX) 1 MG tablet Take 2 Tablets by mouth 2 times daily. 09/11/24 10/11/24 Yes Ashu Aburto MD folic acid 1 MG tablet Take 1 Tablet by mouth daily. 09/12/24 Yes Ashu Aburto MD hydrALAZINE (APRESOLINE) 100 MG tablet Take 1 Tablet by mouth 3 times Daily. 09/11/24 Yes Ashu Aburto MD Apixaban (ELIQUIS) 5 MG tablet Take 5 mg by mouth 2 times daily. 07/16/24 NON- [facility], PROVIDER calcitRIOL (ROCALTROL) 0.5 MCG capsule Take 0.5 mcg by mouth 2 times daily. 08/20/24 Yes NON-[facility], PROVIDER calcium carbonate (TUMS) 500 mg (200 mg elemental) tablet Take 1,000 mg by mouth 3 times daily. 08/20/24 08/20/25 Yes NON-[facility], PROVIDER VITALS SIGNS/ VENT/ GTT/ INTAKE/ OUPUT Patient Vitals for the past 24 hrs: BP Temp Temp src Pulse Resp SpO2 O2 Device O2 Flow Rate (l/min) 10/01/24 0830 100/85 97.7 F (36.5 C) Oral 103 18 96 % Room air -- 10/01/24 0522 -- -- -- -- -- -- Room air -- 10/01/24 0340 105/79 98.4 F (36.9 C) Oral 99 18 95 % Room air -- 10/01/24 0130 -- -- -- -- -- -- Room air -- 09/30/24 2335 -- 97.9 F (36.6 C) Oral -- -- -- Nasal cannula 2 liters 09/30/246 105/86 -- -- 112 20 100 % Nasal cannula 2 09/30/242122 -- -- -- (!) 105 12 95 % -- -- 09/30/242121 -- -- -- (!) 112 (!) 24 95 % -- -- 09/30/242119 104/90 -- -- (!) 109 (!) 27 -- -- -- 09/30/240 105/88 -- -- (!) 108 19 98 % -- -- 09/30/24 1950 113/95 -- -- (!) 103 15 96 % -- -- 09/30/24 1910 107/86 -- -- (!) 104 13 100 % -- -- 09/30/24 1850 93/73 -- -- (!) 106 (!) 22 100 % -- -- 09/30/24 1830 99/84 -- -- 99 19 97 % -- -- 09/30/24 1821 94/80 -- -- (!) 102 (!) 24 100 % -- -- 09/30/24 1724 -- -- -- 96 15 96 % -- -- 09/30/24 1717 96/72 -- -- 99 17 -- -- -- 09/30/24 1712 93/80 -- -- (!) 102 15 -- -- -- 09/30/24 1655 98/79 -- -- (!) 104 13 -- -- -- 09/30/24 1624 -- 97.6 F (36.4 C) -- -- -- -- -- -- 09/30/24 1619 104/91 -- -- (!) 110 (!) 21 98 % -- -- Intake/Output Summary (Last 24 hours) at 10/01/2024 1000 Last data filed at 10/01/2024 0512 Gross per 24 hour Intake 2140 ml Output -- Net 2140 ml Net IO Since Admission: 2,140 mL [10/01/24 1000] Wt Readings from Last 5 Encounters: 10/01/24 166 lb 6.4 oz (75.5 kg) 09/17/24 161 lb (73 kg) 09/11/24 160 lb 4.8 oz (72.7 kg) 08/27/24 163 lb (73.9 kg) PHYSICAL EXAM BP 100/85 (BP Location: left arm) Pulse 103 Temp 97.7 F (36.5 C) (Oral) Resp 18 Ht 6' 1 (1.854 m) Comment: pt stated Wt 166 lb 6.4 oz (75.5 kg) Comment: stand weight scale SpO2 96% BMI21.95 kg/m Appearance: Normal Findings: alert, oriented, no acute distress Skin: negative Eyes: normal ENMT: Unremarkable Neck: positive findings: JVD - 10 cm above sternal notch Lungs: clear to auscultation Cardiac: regular rate and rhythm without murmurs, rubs, or gallops Abdomen: Abdomen soft, non-tender. BS normal. No masses, No organomegaly Extremities: Extremities normal. No deformities, edema, or skin discoloration Neurologic: Intact and symmetric. Peripheral Pulses: radial=4/4, femoral=4/4, popliteal=4/4, dorsalis pedis=4/4, GENERAL LABS CBC (last 3 years, up to 8 values) 10/01/2024 09/30/2024 09/09/2024 09/08/2024 09/06/2024 09/06/2024 09/05/2024 09/04/2024 4:36 AM 4:21 PM 4:01 AM 1:10 AM 8:42 PM 9:40 AM 9:37 AM 9:50 AM WBC 10.9 7.7 8.8 8.4 7.7 7.1 6.6 7.2 RBC 4.11 4.57 4.28 4.19 4.31 4.26 4.46 4.27 Hgb 14.2 15.6 14.7 14.4 14.8 14.6 15.4 14.7 Hct 42.8 47.7 43.5 43.0 43.9 42.7 45.3 44.1 MCV 104 105 102 103 102 100 102 103 RDW 14.9 15.4 13.8 13.6 13.9 13.9 13.9 14.2 Plt 227 299 278 278 268 279 274 226 BMP (last 3 years, up to 8 values) 10/01/2024 09/30/2024 09/09/2024 09/08/2024 09/06/2024 09/06/2024 09/05/2024 09/04/2024 4:36 AM 4:21 PM 4:01 AM 1:10 AM 8:42 PM 9:40 AM 9:37 AM 9:50 AM Na 138 134 139 141 138 140 137 134 134 K 4.5 4.0 3.9 4.1 3.9 3.8 3.5 4.3 4.6 Cl 104 98 97 96 96 98 95 96 99 CO2 20 23 31 32 29 29 27 21 17 Gap 19 17 15 17 17 17 19 21 23 Glu 151 189 110 101 133 133 151 129 150 BUN 41 43 36 34 39 44 49 52 51 Cr 2.33 2.64 1.81 1.68 1.85 1.93 2.40 2.60 2.73 Ca 8.4 9.4 7.7 7.9 8.0 8.2 8.6 9.0 8.7 eGFR 34 29 46 50 45 43 33 30 28 Date of last serum creatinine: 10/01/2024 Estimated Creatinine Clearance: 42.3 mL/min (A) (by C-G formula based on SCr of 2.33 mg/dL (H)). Estimated Glomerular Filtration Rate: 34.1 mL/min/1.73m2 (A) (by CKD-EPI based on SCr of 2.33 mg/dL(H)). Magnesium (mg/dL) Date Value 10/01/2024 2.0 09/30/2024 2.3 LFT's (last 3 years, up to 8 values) 09/30/2024 09/09/2024 09/08/2024 09/06/2024 09/06/2024 09/05/2024 09/04/2024 09/02/2024 4:21 PM 4:01 AM 1:10 AM 8:42 PM 9:40 AM 9:37 AM 9:50 AM 6:45 AM T Prot 6.5 6.1 6.4 6.4 6.4 6.7 7.1 6.3 6.6 Albumin 3.8 3.6 3.7 3.7 3.6 3.8 4.0 3.6 3.8 D Bili 2.40 0.79 0.85 0.81 1.04 1.38 1.61 1.18 1.03 T Bili 5.7 2.2 2.2 2.4 2.7 3.4 3.9 3.4 3.5 Alk Phos 331 202 247 224 233 260 304 160 269 ALT 28 37 42 44 46 52 62 44 57 AST 19 24 27 25 25 29 53 26 64 CARDIAC LABS HS Troponin I Date Value Ref Range Status 09/30/2024 32 (H) <=15 ng/L Final 09/30/2024 38 (H) <=15 ng/L Final 09/04/2024 38 (H) <=15 ng/L Final No results found for: TROPONIN B Type Natriuretic Peptide (pg/mL) Date Value 09/30/2024 6,470.0 (H) 08/31/2024 3,904.0 (H) No results found for: HBA1C Lipids (last 3 years, up to 8 values) 08/27/2024 10:35 AM Chol- esterol 204 TG 106 HDL 28 LDL 162 Chol / HDL 7.29 LDL / HDL 5.79 Non HDL 176 CARDIAC TESTS ECG: LBBB ECHO: Echocardiogram date: Not Found No results found for: LVEF EF 18% at [facility]: Non-obstructive CAD IMPRESSION Acute on chronic HFrEF with low cardiac output state Severe MR Severe TR Type 2 ND 2/2 supply demand mismatch RECOMMENDATIONS - Recommend no more fluid administration, and no diuresis either for the next 48 hours - Continue to trend lactate to clearance - Resume home hydralazine 100 mg TID and isordil 20 mg TID - Resume home Bumex 1 mg BID after 48 hours - If lactic acidosis does not improve, would have low threshold to transfer for IV inotropes Vadim Zee MD Cardiovascular Fellow, PGY6 Department of Cardiovascular Diseases Heart and Vascular [facility] Teaching Physician Note: I saw and evaluated the patient. I personally obtained the reardon and critical portions of the historyand physical exam. I reviewed the resident's documentation and discussed the patient with the resident. I agree with the resident's medical decision making as documented in the resident's note. Aryan Cervantes MD * Janay Melo - 10/01/2024 9:04 AM EDT Images from the original note were not included. Dietitian vs DietaryTech: [email or web address] Diet Body Make Up Artist Nutrition Screening Reason for visit: Positive nutrition screen for poor oral intake and weight loss Assessment Admitting Diagnosis: No admission diagnoses are documented for this encounter. High risk nutrition diagnosis: No - no points Past Medical History: Past Medical History: Diagnosis Date Chronic systolic heart failure (HCC) DVT (deep venous thrombosis) (HCC) Hypercholesteremia Iron deficiency anemia Stage 2 chronic kidney disease Vitamin D deficiency Food Allergies: NKFA Labs: LFT's (last 3 years, up to 8 values) 09/30/2024 09/09/2024 09/08/2024 09/06/2024 09/06/2024 09/05/2024 09/04/2024 09/02/2024 4:21 PM 4:01 AM 1:10 AM 8:42 PM 9:40 AM 9:37 AM 9:50 AM 6:45 AM T Prot 6.5 6.1 6.4 6.4 6.4 6.7 7.1 6.3 6.6 Albumin 3.8 3.6 3.7 3.7 3.6 3.8 4.0 3.6 3.8 D Bili 2.40 0.79 0.85 0.81 1.04 1.38 1.61 1.18 1.03 T Bili 5.7 2.2 2.2 2.4 2.7 3.4 3.9 3.4 3.5 Alk Phos 331 202 247 224 233 260 304 160 269 ALT 28 37 42 44 46 52 62 44 57 AST 19 24 27 25 25 29 53 26 64 Albumin: Greater than 3 - no points Prealbumin: n/a - no points Skin Integrity: No pressure ulcers at this time - no points Fluid Accumulation: Ascites - 2 points Diet Order: Full Liquid Supplements: none % PO Intake: Less than 50% for greater than and equal to 5 days - 4 points Intake difficulties: Decreased appetite - 0 points 6' 1[pt stated[ 166.4 lbs .75.5 kg Weight history: 189 lbs - Jun 2023 per Care Everywhere Weight Only Weight 08/27/2024 9:47 AM 163 lb 08/31/2024 2:49 PM 158 lb 09/03/2024 4:17 PM 164 lb 10.9 oz 09/05/2024 6:00 AM 159 lb 14.4 oz 09/06/2024 6:00 AM 160 lb 4.8 oz 09/08/2024 5:00 AM 157 lb 6.4 oz 09/09/2024 12:12 AM 160 lb 9.6 oz 09/10/2024 4:12 AM 157 lb 09/11/2024 12:00 AM 160 lb 4.8 oz 09/17/2024 11:35 AM 161 lb 10/01/2024 5:22 AM 166 lb 6.4 oz BMI: 21.95 BMI Screening value: 21 or greater - 0 points % Weight Loss: not significant Weight Loss Screening Value: Not significant - 0 points Education: No nutrition education indicated at this time. Comments: hx vomiting and diarrhea X 1 week. Tolerating some clear liquids. Currently denies n/v. Denies unintentional weight changes. Monitor. Number of Points: 6 Nutritional Plan of Care: Less than or equal to 6 points: At this time, patient is at low nutritionrisk. DTR to provide routine follow up. Will continue to follow, Janay Melo, Diet Body Make Up Artist Pager [phone] Time spent on patient care: 30 minutes documented in this [id number] Progress note* Transfer Note - Shane Omalley MD - 10/04/2024 4:08 PM EDT Images from the original note were not included. . Provider Called Report To (Enter Provider Name, Service, and Time): Eugene Nova MD, Med Resident Teams 16:30 CICU Transfer Note Patient: Carlo Medina : 1980 Sex: male Room: [place] [address] Admit Date: 09/30/2024 Today's Date: 10/04/2024 Hospital Day: 5 Reason for Transfer: Declining all interventions that would require ICU status Hospital Course 44 year old male with a history of HFrEF (EF 18% 08/11/24), LBBB, HTN, HLD, hx DVT, cirrhosis, CKD3 presented to the ED 09/30/2024 4:07 PM for SOB and pleuritic chest pain. Admitted for ADHF and PNA to the floor, but was transferred to CICU on the evening of 10/01 for worsening lactate. Patient's ICU course significantly complicated by patient's refusal of nearly all medications, interventions, and lab work. Was intermittently diuresed with IV Lasix with some success (aided by dobutamine), but by 10/04 patient was persistently declining all interventions that would require further ICU care. After discussion with ethics and given that patient continues to demonstrate capacity, transferred to the floor 10/04 to continue management. Objective Vital sign ranges over the past 24 hours (retrieved 10/04/2024 at 4:38 PM): Tmax (24 hours): 98.9 F (37.2 C) Pulse Av.7 Min: 76 Max: 106 Systolic (24hrs), Av , Min:91 , Max:129 Diastolic (24hrs), Av, Min:76, Max:89 MAP (mmHg) Av.6 mmHg Min: 84 mmHg Max: 103 mmHg Resp Av Min: 19 Max: 19 SpO2 Av % Min: 95 % Max: 97 % To Do During Admission: []Continue Abx for PNA []Palliative Consult to determine goals of care. [] Diurese orally as able [] Heparin for DVT (but is refusing) On Discharge: [] [] [] Signature Shane Omalley MD (he/him) Public Policy Mediator PGY-2 10/04/24 [id number] Progress note* Discharge Planning Note - Michelle Umana RN - 10/04/2024 12:39 PM EDT CASE MANAGEMENT CM aware Ethics is following d/t patient declining recommended medical interventions. Per Moly, patient is competent to make his own medical decisions. SW/CM has reviewed patient's chart and assessed that there are no discharge planning needs at this time. The following was reviewed to determine no SW/CM needs warranted. 1). PT/OT evaluations indicate pt can DC home with no needs or PT/OT evaluations are not warranted. 2). No wound care or IV Antibiotics indicated at this time. 3). No SW/CM consults placed through nursing admission screen 4). Pt does not meet the criteria of being a Medicare recipient that has a high or rising readmission rate. Patient will continue to be discussed in multi-disciplinary rounds and monitored daily. If any of the the above changes, SW/CM will complete appropriate assessments and interventions. Case management will continue following patient for further discharge needs as warranted. Michelle Umana BSN RN CMSRN PRN Business Manager [employer] [id number] Progress note* [facility] Soraida Pedroza RN - 10/04/2024 12:30 AM EDT 12:30 AM Patient refusing labs at this time [id number] Consult note* Calin Hearn - 10/03/2024 6:37 PM EDT Associated Order(s): IP ETHICS COMMITTEE CONSULT Clinical Ethics was consulted by the medical team on 10/03/2024 regarding the care of Carlo Medina, especially given his declination of recommended medical interventions. Clinical Ethics spoke with Kylie Dan MD and provided initial recommendations including considering the involvement of Spiritual Care and other services that may provide additional support to Mr. Medina given his anxiety/distress associated with medical interventions, and encouraging Mr. Medina to designate his preferred surrogate/s to participate in medical decisions on his behalf should he lack/lose the capacity to do so himself. Clinical Ethics will touch base with the primary team tomorrow to further discuss concerns around the care of Mr. Medina. Please contact us with any questions or if we can be of any further assistance. Calin Hearn MD, [facility] Clinical Ethics Fellow, [facility] 20/01 Clinical Ethics Consult Pager: [phone] [id number] Hospital Note* Hospital Course - Guadalupe Mccarthy, DO - 10/03/2024 11:10 AM EDT Carlo Medina is a 44 year old male admitted on 09/30/2024 with a PMH of HFrEF (EF 18% 08/11/24), LBBB, HTN, HLD, hx DVT, cirrhosis, CKD3 who was admitted to family medicine service for acute decompensated heart failure and pneumonia. He had originally presented to the ED on 09/30 for SOB and right sided rib/chest pain. He was tachycardic, tachypneac, hypotensive, but saturating well on room air in the ED. Patient with elevated alk phos and bili as well as SCHUYLER. Received normal saline bolus, lidocaine patch, fentanyl 150 mcg x1 andstarted on cefepime and doxycycline with cocern for CAP. Admitted to family medicine. Echo done with EF 15%, severe MR, severe TR, elevated CVP and a low cardiac output state. Cardiology consulted and recommended resuming home hydroal and isordil. Lactate was up-trending so he was transferred to CICU for IV inotropes. On arrival to CICU, patient refused IV medications after one hour as he does not want to be tied down. Advised him on the importance of these medications. After GOC discussion with girlfriend at bedside, patient agreed to all measures that would prolong his life. LIJ central line and L radial arterial line placed, and medications resumed. However after 1 hour, patient requested that all medications be stopped and all lines to be removed. Patient demonstrated understanding of the risks of decompensating, possibly resulting in , but decided he does not want to be hooked up to lines. [id number] Consult note* Faith Gan, JAKE - 10/03/2024 9:00 AM EDT PHYSICAL THERAPY-DISCHARGE Attempted to see patient for PT session, however pt currently declining any further therapy needs. Patient reporting independence with functional mobility and no concerns for a decline in his independence. Pt requesting DC from PT services Will respectfully DC PT Faith Gan, PT, DPT Secure chat with questions [id number] Progress note* Progress Notes - NoteWriter - Soraida Pedroza RN - 10/03/2024 12:58 AM EDT 12:58 AM Unable to obtain lab work due to lack of access, patient is difficult stick and refusing peripheralsticks. [id number] NoteEXAMINATION: XR CHEST AP OR PA 1 VIEW 10/02/2024 08:04 PM CLINICAL HISTORY: Pneumothorax assessment, post-procedure ASSOCIATED DIAGNOSIS: Pneumothorax assessment, post-procedure ORDERING PROVIDER: SCOTTY LUJAN [employer] NOTE: COMPARISON: 10/02/2024 at 7:17: 20/9 and 09/30/2024 FINDINGS: Lines, tubes, and devices: Overlying telemetry leads are noted. Lungs and pleura: There is mild opacity in the right base from mild atelectasis aspiration or pneumonia. This has progressed since the prior study of 09/30/2024. Continued follow-up exam is recommended. No evidence of pneumothorax. Cardiomediastinal silhouette: Cardiomegaly is unchanged. Musculoskeletal: Unchanged. IMPRESSION: No evidence of pneumothorax. Opacity in the right base is noted suggesting mild atelectasis and pneumonia aspiration. Continued follow-up exam is recommended. MACRO: None [id number] Procedure note* MccarthyGuadalupe DO - 10/02/2024 7:34 PM EDT Procedure(s): CENTRAL LINE INSERTION Pre-Procedure Diagnose(s): HFrEF (heart failure with reduced ejection fraction) (HCC) Post-Procedure Diagnose(s): HFrEF (heart failure with reduced ejection fraction) (HCC) PROCEDURE NOTE: CENTRAL VENOUS ACCESS PLACEMENT Patient Name: Carlo Medina Patient Patient : 1980 TYPE OF ACCESS: 8.5 F percutaneous sheath introducer LOCATION: internal jugular - anterior approach Left Informed consent, after discussion of the risks, benefits, and alternatives to the procedure, was obtained and the consent form was signed by patient . The patient was identified using two patient identifiers: Yes. The H&P along with required diagnostics are available in Epic: Yes The correct procedure was verified: Yes Procedural site identified: Yes Presence of required equipment verified prior to starting procedure: Yes Patient allergies identified or reviewed: Yes Site marking done: Not indicated A timeout to verify the correct patient, procedure, and site was performed immediately prior to theprocedure The landmarks for internal jugular - anterior approach Left sided line placement were identified using ultrasound guidance. The procedure was subsequently performed using ultrasound guidance. Anesthesia was obtained with 5 cc of Lidocaine 1%. The area was prepped and draped in the usual sterile fashion. The vessel was cannulated and a non- tunneled 8.5 F percutaneous sheath introducer was placed using the Seldinger technique. There was good blood return from all ports. The ports were appr opriately flushed. The line was sutured in place in the usual fashion. An appropriate dressing was placed over the site. The patient tolerated the procedure well. Ultrasound for Vascular Access: I performed ultrasound image supervision and interpretation for needle placement during this procedure. The LIJ vein was identified and was found to be free of thrombosis by compression techniques. A safe angle for access was determined and marked. The vessel was approached by needle and the placement of the guidewire was confirmed visually. A reardon ultrasound image is not saved to the [employer] system with patient information. Guadalupe Mccarthy DO Internal Medicine/Pediatrics PGY-2 Cosigned by Steven Laguna MD at 10/03/2024 6:38 AM EDT [id number] Procedure note* Guadalupe Mccarthy DO - 10/02/2024 7:34 PM EDT Procedure(s): CENTRAL LINE INSERTION Pre-Procedure Diagnose(s): HFrEF (heart failure with reduced ejection fraction) (HCC) Post-Procedure Diagnose(s): HFrEF (heart failure with reduced ejection fraction) (HCC) PROCEDURE NOTE: CENTRAL VENOUS ACCESS PLACEMENT Patient Name: Carlo Medina Patient Patient : 1980 TYPE OF ACCESS: 8.5 F percutaneous sheath introducer LOCATION: internal jugular - anterior approach Left Informed consent, after discussion of the risks, benefits, and alternatives to the procedure, was obtained and the consent form was signed by patient . The patient was identified using two patient identifiers: Yes. The H&P along with required diagnostics are available in Epic: Yes The correct procedure was verified: Yes Procedural site identified: Yes Presence of required equipment verified prior to starting procedure: Yes Patient allergies identified or reviewed: Yes Site marking done: Not indicated A timeout to verify the correct patient, procedure, and site was performed immediately prior to theprocedure The landmarks for internal jugular - anterior approach Left sided line placement were identified using ultrasound guidance. The procedure was subsequently performed using ultrasound guidance. Anesthesia was obtained with 5 cc of Lidocaine 1%. The area was prepped and draped in the usual sterile fashion. The vessel was cannulated and a non- tunneled 8.5 F percutaneous sheath introducer was placed using the Seldinger technique. There was good blood return from all ports. The ports were appr opriately flushed. The line was sutured in place in the usual fashion. An appropriate dressing was placed over the site. The patient tolerated the procedure well. Ultrasound for Vascular Access: I performed ultrasound image supervision and interpretation for needle placement during this procedure. The LIJ vein was identified and was found to be free of thrombosis by compression techniques. A safe angle for access was determined and marked. The vessel was approached by needle and the placement of the guidewire was confirmed visually. A reardon ultrasound image is not saved to the [employer] system with patient information. Guadalupe Mccarthy DO Internal Medicine/Pediatrics PGY-2 Cosigned by Steven Laguna MD at 10/03/2024 6:38 AM EDT documented in this [id number] Consult note* Luba Trujillo - 10/02/2024 5:07 PM EDTAssociated Order(s): IP OCCUPATIONAL THERAPY SERVICE REQUEST OCCUPATIONAL THERAPY INITIAL EVALUATION Patient seen from 1513 to 1545 on 7W unit for 32 minutes. (Eval+ treat) RN approved seeing patient.Girlfriend present during session. HIPPA: verbal permission granted from patient to discuss case, including protected health information, in front of family/friends in the room at the time of evaluation. Patient offered the option of having friend/family member leave the room for the exam and declined. Reason for Admit: 44 y/o male presented to ED on 09/30/24 for SOB and right rib/chest pain. He was tachy, tachypneac, hypotensive for acute decompensated heart failure and PNA Diagnosis: ADHF HFrEF Severe MR Cardiogenic shock PNA Hypervolemia SCHUYLER Precautions/Activity Order: Moderate Falls Full Code Progressive Mobility 2GM 2000 cc fluid Past Medical and Surgical History: PMH: Past Medical History: Diagnosis Date Chronic systolic heart failure (HCC) DVT (deep venous thrombosis) (HCC) Hypercholesteremia Iron deficiency anemia Stage 2 chronic kidney disease Vitamin D deficiency PSH: No past surgical history on file. SUBJECTIVE: Patient Subjective: I just take them off when I need to go to the bathroom - Pt referencing to leads he unhooks from monitor to go to bathroom, RN aware of pt removing. Patient Identified Goal(s):return home Home Living Situation Prior Functional Status: Independent Living independent with Activities of Daily Living Independent Ambulation without assistive device no device Assistance with Instrumental Activities of Daily Living - girlfriend completes all heating and ventilating drafter, driving and meals (-) works, in the process of applying for disability (-) falls Assistance Available at Home: Girlfriend 20/01 Patient lives in a [place] home 4 stairs to enter. Full Bathroom on residing level and Bedroom on residing level. Equipment available at home: no equipment OBJECTIVE: Patient Identification: patient verbalizing his/her name and date of . 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 Right side rib pain intermittently Pain Relief Interventions Implemented: Positioning, Rest, and Notified Nurse Self Care: Assistance Level Dep Max Mod Min CG CS DS ND I Set-Up Comment Feeding X Per pt Grooming/Hygiene X Anticipate sink level standing Bathing:UB X Simulated during UE AROM screen seated level Bathing:LB X Anticipate seated level Dressing:UB X Simulated seated at EOB during UE AROM screen Dressing: LB X Standing level clothing mgmt, girlfriend assisted with adjusting pants Toileting X Pt reports he has been up taking himself to the bathroom denies any concerns with hygiene and clothing mgmt Transfers/Bed Mobility: Assistance Level Dep Max Mod Min CG CS DS ND I Set-Up Comment Toilet Transfers X Anticipate based on sit <> stand from bed Bed Transfers X Sit <.> stand no AD Bed Mobility X Supine <> sit, HOB elevated Functional Mobility X Few steps without AD, no overt LOB mild SON Endurance for Self Care: Impaired Vitals (seated) Pre-Mobility Post Mobility Oxygen 100% RA 100% RA Heart Rate 107 bpm 113 bpm BP 119/87 116/88 Static Sitting Balance: Good Dynamic Sitting Balance: Good UE Motor: (B) UE AROM WFL all planes of motion. NO formal MMT applied appears to be WFL for age norms evidentby use during functional mobility Vision/Perception: WFL Cognition: Orientation: Oriented to person, place, time, and situation Follows Commands: WFL Attention: WNL Memory: WFL Problem Solving: WFL Safety/Judgement: Impaired, pulls tubes or medical devices (removes leads to go to restroom but RN aware), impulsive, and lacks insight into impairments Sequencing: WFL Other Specialized Tests: None Patient/Family Education and therapeutic skilled interventions used: Instructed patient in roles oftherapy and Patient instructed in importance of pacing self, incorporating rest breaks during functional tasks, importance of self monitoring and vital sign monitoring during functional mobility. Training in safe and correct transitional movements and techniques to increase safety for ADL's in unsupported standing. Pt required min to mod verbal cues for carryover of energy conservation and safetytechniques requiring need for further education and instruction. Patient up in bed with call light in reach. DME: With Patients permission ordered no equipment via adicate timeads Order. If any questions contact [facility] [place] [facility] at [phone]. 10/02/2024 6 Clicks Daily Activity OT Help from another person Eating meals 4 Help from another person taking care of personal grooming 3 Help from another person bathing 3 Help from another person putting on and taking off regular upper body clothing 3 Help from another person putting on and taking off regular lower body clothing 3 Help from another person toileting 3 OT 6 Clicks Score 19 6 Click Score Guidelines: 1 - Unable = Total/Dependent Assist 2 - A lot = Max/Moderate Assist 3 - A little = Minimum/Contact Guard Assist/Supervision 4 - Non = Modified [place]/Independent ASSESSMENT: Will continue to follow patient while in hospital as appropriate Patient is functionally appropriate for discharge home once medically cleared. Recommend PRN family/caregiver assist for IADLs Rehabilitation Potential: Good Problem List: decreased ADLs, impaired upper extremity motor function, decreased endurance, decreased functional transfers/mobility, impaired balance, decreased home management tasks/IADLs, decreasedfunctional activity tolerance, and increased pain Goals (to be achieved by discharge from acute care): Patient will perform grooming with Modified Independent Patient will dress upper body with Modified Independent Patient will dress lower body with Modified Independent Patient will perform bed mobility with Modified Independent Patient will perform bathing with Modified Independent Patient will perform toileting with Modified Independent Patient will perform bed transfers with Modified Independent Patient will perform commode transfers with Modified Independent Patient will increase endurance sufficient to perform tolerate up to 10 minutes of functional standing task with rest breaks as needed Report reduced pain level to allow for participation in ADL/IADL PLAN: Carlo Medina will be seen x1-3 times a week. Treatment to include: Functional AROM/Strengthening, functional mobility training, ADL retraining, functional endurance activities, work simplification / energy conservation, home management retraining, adaptive equipment / compensatory strategy training, patient / family education and discharge estee nning, referral to appropriate support services, and pain Management able to discuss the evaluation findings and treatment plan with the patient/family. The patient/family did participate in the development of plan and goals. Luba SHOOK, OTR/L NA = Not Assessed, I = Independent, ND = Modified Independent, Sup = Supervised, Set up = Physical Assistance for Set-up Only, Min = Minimal Assistance, Mod = Moderate Assistance, Max = Max assistance; Dep = Dependent; AROM = Active Range of Motion;PROM=Passive Rangeof Motion; MMT = Manual Muscle Test; UB = Upper Body; LB = Lower Body [id number] Consult note* Rosaline Rivero, PT - 10/02/2024 12:46 PM EDTAssociated Order(s): IP PHYSICAL THERAPY SERVICE REQUEST PHYSICAL THERAPY ACUTE EVALUATION Referral received, chart reviewed. Patient seen from 923 to 955 on CICU unit for 32 minutes. Eval + Tx Admit date: 09/30/2024 4:07 PM Reason for Admit: 44 year old male presenting with PNA, ADHF, concern for cardiogenic shock Diagnosis: Pneumonia of right lower lobe due to infectious organism [J18.9] Hypervolemia, unspecified hypervolemia type [E87.70] HFrEF (heart failure with reduced ejection fraction) ([facility]) [I50.20] Acute kidney injury superimposed on CKD (HCC) [N17.9, N18.9] Precautions: Falls Risk: Moderate Code Status: Full Diet: 2 GM sodium, 2000 cc fluid Activity Orders: Progressive mobility Past Medical and Surgical History: PMH: Past Medical History: Diagnosis Date Chronic systolic heart failure (HCC) DVT (deep venous thrombosis) (HCC) Hypercholesteremia Iron deficiency anemia Stage 2 chronic kidney disease Vitamin D deficiency PSH: No past surgical history on file. Identification was verified by patient verbalizing his/her name and date of . Risks and Benefits of physical therapy: Patient informed of risks and benefits of treatment SUBJECTIVE: Patient Subjective: I just got back from the bathroom and now I need to catch my breath and let meheart slow down. 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 0 steps to bedroom/bathroom Assistance available: 20/01 between girlfriend and girlfriend's brother Equipment available: none OBJECTIVE: Appearance: Pt supine, EKG, pulse ox, BP cuff all unhooked from monitor by patient to use restroom (RN aware and PT adjusted EKG and pulse ox for monitoring) Behavior: Patient very anxious throughout often times increasing RR with difficulty following cues for deep breathing. Self limiting behaviors needing extensive encouragement and education on purposeof PT in acute setting. Thankful for PT services at end of session Orientation: A&O 4 Command Following: Follows multi step commands consistently Pain: Pain location abdomen I think it's my kidneys , Scale 4/10; Pain Relief Interventions Implemented: Positioning and Notified Nurse Skin: Intact in all visible areas Sensation: Denied numbness or tingling Coordination: WFL AROM: BUEs and BLEs WFL Strength: BUEs and BLEs grossly 4+/5 Balance: Good dynamic sitting, close supervision during dynamic standing Transfers/Bed Mobility Assistance Level Dep Max Mod Min CG CS DS ND I Set-Up Comment Supine to Sit X Cues for sequencing Sit to/from Stand X No device Transfers X No device cues for deep breathing Ambulation X 3 ft without device: overall steady on feet but fatigues quickly with increased RR anddesat to 75% on 4L but patient nearly hyperventilating seemingly very anxious with mobility. Session ended patient sitting up in chair. Chair alarm in place d/t falls risk. Call kaufman and telephone within reach. Patient instructed to call for staff assist for all mobility. RN aware of patientlocation and mobility status. Endurance: Impaired Vitals Pre-Mobility During Mobility Post Mobility Heart Rate 113 bpm 115 bpm 109 bpm Oxygen Intermittent 80-92 on room air 75% on 4L, 92% Respiratory Rate Fluctuated from 17 to 40 Fluctuated from 20-35 33 BP 116/85 Patient/Family Education: Educated on PT role in acute care setting Precautions including balancing activity with rest ,deep breathing, benefits of sitting upright. Limit chair sitting Review and emphasis on importance of continued mobility in the hospital setting Educated patient not to stand or mobilize without staff assist to reduce risk for falls Use of call kaufman and nursing assistance Discussed post acute recs Answered patient questions/concerns Treatment: Education as stated above, safety and sequencing with mobility, functional transfers forstrengthening and improved functional tolerance, standing tolerance, balance, therex (AP, SLR, LAQ,seated marching, GS) x 10 10/02/2024 6 Clicks Basic Mobility PT Difficulty turning over in bed 4 Difficulty sitting down and standing up from a chair with arms 3 Difficulty moving from lying on back to sitting on the side of the bed 3 Help from another person moving to and from bed to a chair 3 Help from another person to walk in hospital room 3 Help from another person climbing 3-5 steps with a railing 1 PT 6 Clicks Score 17 6 Click Score Guidelines: 1 - Total = Requires total assistance, or cannot do at all. 2 - A lot = Requires a lot of help (maximum to moderate assistance) Can use assistive devices. 3 - A little = Requires a little help (supervision, minimal assistance) Can use assistive devices. 4 - None = Does not require any help and does the activity independently. Can use assistive devices. ASSESSMENT: At time of evaluation, pt demonstrates decreased strength, endurance, and balance limiting independence with functional mobility. Pt presenting below baseline status, will benefit from PT services during hospitalization to address. Anticipate patient will be appropriate for discharge home following1-2 acute Physical Therapy sessions. Will continue to follow patient while in hospital as appropriate. Recommend PRN family/caregiver assist for IADLs Problems: Pain Decreased ROM/strength Decreased functional mobility Decreased endurance Decreased balance Decreased education in exercise/precautions Decreased cognition/behavior Impaired safety awareness Rehabilitation Potential: Good Goals (to be achieved by discharge from acute care): Patient will perform bed mobility independent Patient will perform sit tofrom stand without device independent Patient will transfer from bed to/from chair without device independent Patient will demo ability to ambulate >/= 75 ft without device independent and ability to turn, side step and retro step without observed loss of balance Patient will demo ability to negotiate 4 steps with 1 handrail mod I PLAN OF CARE: Frequency: Patient to be seen 3-5 times a week Interventions: Functional mobility ROM/Strengthening Home exercise program Discharge planning and equipment ordering as needed Patient /Family education The evaluation findings and treatment plan were discussed with the patient/family. The patient/family indicated understanding and agreement with the plan. Rosaline Rivero, PT, DPT NA = Not Assessed, I = Independent, ND = Modified Independent, Sup = Supervised, Set up = Physical Assistance for Set-up Only, Min = Minimal Assistance, Mod = Moderate Assistance, Max = Max assistance; Dep = Dependent; AROM = Active Range of Motion; PROM = Passive Range of Motion; MMT = Manual Muscle Test; LE = Lower Extremity; VC = verbal cues; TC = tactile cues; PLB = pursed lip breathing [id number] History and physical note* Kathleen Burden MD, MPH - 10/02/2024 12:00 AM EDT Images from the original note were not included. [facility] Cardiac Intensive Care Unit - H&P Note Carlo Medina Age [id number] year old male ROOM: [place] [id number] Admitted: 09/30/2024 4:07 PM Hospital Day: 2 History of Present Illness: CHIEF COMPLAINT: Chief Complaint Patient presents with Shortness of breath Pt c/o right sided rib pain, sob. Diarrhea x1 week, vomiting yesterday with cough and congestion. Carlo Medina is a 44 year old male admitted on 09/30/2024 with a PMH of HFrEF (EF 18% 08/11/24), LBBB, HTN, HLD, hx DVT, cirrhosis, CKD3 who was admitted to [facility] service for acute decompensated heart failure and pneumonia. He had originally presented to the ED on 09/30 for SOB and right sided rib/chest pain. He was tachycardic, tachypneac, hypotensive, but saturating well on room air in the ED. Patient with elevated alk phos and bili as well as SCHUYLER. Received normal saline bolus, lidocaine patch, fentanyl 150 mcg x1 andstarted on cefepime and doxycycline with cocern for CAP. Admitted to [facility]. Echo done with EF 15%, severe MR, severe TR, elevated CVP and a low cardiac output state. Cardiology consulted and recommended resuming home hydroal and isordil. Lactate was up-trending so he was transferred to CICU for IV inotropes. On arrival to CICU, patient denies chest pain and dyspnea currently. He states that he does have some burning chest pain off and on sometimes. Denies chest pressure. He denies orthopnea but reports PND. Reports some leg swelling. He reports compliance with his medication. Denies HAINES, fever, chills, nausea. Endorses abdominal and rib pain. Patient states that he only wants to be on the drip for onehour as he does not want to be tied down. He does not have any concerns about the medication itself. He also did not take his oral medication as he was nauseous on Friday. He declines any nauseaat present. Told him we can provide medications for nausea if needed. Advised him on the importanceof these medications. Patient confirmed full code. Medical History: Past Medical History: Diagnosis Date Chronic systolic heart failure (HCC) DVT (deep venous thrombosis) (HCC) Hypercholesteremia Iron deficiency anemia Stage 2 chronic kidney disease Vitamin D deficiency No past surgical history on file. No family history on file. Social History Tobacco Use Smoking status: Never Smokeless tobacco: Never No current facility-administered medications on file prior to encounter. Current Outpatient Medications on File Prior to Encounter Medication Sig Dispense Refill metoclopramide (REGLAN) 5 MG tablet Take 1 Tablet by mouth 4 times daily (before meals and at bedtime). Prn 40 Tablet 1 bumetanide (BUMEX) 1 MG tablet Take 2 Tablets by mouth 2 times daily. 120 Tablet 2 folic acid 1 MG tablet Take 1 Tablet by mouth daily. 30 Tablet 3 hydrALAZINE (APRESOLINE) 100 MG tablet Take 1 Tablet by mouth 3 times Daily. 60 Tablet 3 Apixaban (ELIQUIS) 5 MG tablet Take 5 mg by mouth 2 times daily. calcitRIOL (ROCALTROL) 0.5 MCG capsule Take 0.5 mcg by mouth 2 times daily. calcium carbonate (TUMS) 500 mg (200 mg elemental) tablet Take 1,000 mg by mouth 3 times daily. Allergies Allergen Reactions Torsemide Vomiting Reports did not tolerate, refuses to take again Sacubitril-Valsartan Vomiting Objective: Objective Temperature: [97.7 F (36.5 C)-98.4 F (36.9 C)] 97.7 F (36.5 C) Heart Rate: [96-112] 103 Respiratory Rate: [12-27] 18 BP: (93-113)/(72-95) 100/85 Intake/Output Summary (Last 24 hours) at 10/01/2024 1716 Last data filed at 10/01/2024 0512 Gross per 24 hour Intake 2140 ml Output -- Net 2140 ml Respiratory Support: O2 Device: Room air O2 Flow Rate (l/min): 2 liters LABS: CBC: (10/01/2024: 4:36 AM) WBC 10.9 \ Hgb 14.2 / Plt 227 / Hct 42.8 \ BMP: (10/01/2024: 4:36 AM) 138 104 41 Gluc 151 4.5 20 2.33 Mg PO4 Ca 2.0 4.9 8.4 (1.6-2.8) (2.5-4.8) (8.4-10) Baseline Weight 157 lbs Admission Weight Weight: 166 lb 6.4 oz (75.5 kg) (stand weight scale) Today's Weight Weight: 166 lb 6.4 oz (75.5 kg) (stand weight scale) BMI 21.95 Change in Weight: Current value is 166.4 lb (75.478 kg) on 10/01/2024 at 0522 No other value found for comparison Active Meds: isosorbide dinitrate 20 mg 3x Daily acetaminophen 1,000 mg Once cefTRIAXone orderable 1,000 mg Q24H Antibiotic doxycycline 100 mg 2x Daily folic acid 1 mg Daily hydrALAZINE 100 mg 3x Daily Apixaban 5 mg 2x Daily lidocaine 1 Patch Every 24 hours Exam: General: NAD. HEENT: EOMI. Conjunctiva clear. No scleral icterus. Heart: RRR. No murmurs or rub. Lungs: Diminished in RLL otherwise CTA Abdomen: Soft. Non-distended. Mild tenderness in right upper quadrant Extremities: +1 edema in LLE Neuro: No focal deficits. A&Ox3 Skin: Warm & dry. Imaging/Cardiac Findings: ECG: sinus tachycardia, intraventricular block Telemetry findings reviewed: Echocardiogram date: 10/01/2024 SUMMARY Left ventricular systolic function is severely globally reduced. The left ventricular ejection fraction (LVEF) is 15% +/- 5% Diastolic LV function assessed by resting Doppler is abnormal. Mixed (concentric and eccentric) left ventricular hypertrophy is present. Right ventricular function is severely reduced. Dilated left ventricle, left atrium, right ventricle, right atrium. There is mild aortic regurgitation. There is severe mitral regurgitation. There is severe wide opened tricuspid regurgitation. The pulmonary artery systolic pressure could not be estimated. Noninvasive hemodynamic assessment is consistent with an elevated CVP, an elevated LVEDP, a low cardiac output state. Last Stress Test: NA Last Cath: NA Chest x-ray was last done on 09/30/2024 Echocardiogram date: 10/01/2024 Consults: IP CARDIOLOGY HEART FAILURE CONSULT Assessment and Plan: Carlo Medina is a 44 year old male with PMHx of HFrEF (EF 18% 08/11/24), LBBB, HTN, HLD, bilateral DVT (05/2024), cirrhosis, and CKD 3 who presented to [place] ED on 09/30/2024 for SOB and R ribpain. Home medications: - eliquis 5 mg BID - bumex 2 mg BID - folic acid 1 mg daily - hydralazine 100 mg TID - isordil 20 mg TID - metoprolol 25 daily Neurologic No acute concerns Cardiovascular # ADHF # HFrEF (EF 15% 10/02/23) # Severe MR # c/f cardiogenic shock - echo concerning for low cardiac output state, elevated CVP - uptrending lactate (5.0 -> 4.3 -> 3.5 -> 5.0) Plan: - trend lactate q6h - GDMT: - afterload reduction: resume home hydralazine 100 TID, isordil 20 TID - MRA: - BB: hold metoprolol 25 mg daily - SGLT2: - continue home eliquis 5 mg - start inotropes: IV dobutamine 2.5 mg - per HF, resume diuretics on 10/03 - f/u lipid profile Respiratory #Community acquired PNA - RLL consolidation on CXR - patient with productive cough, pleuritic pain - satting well on RA Plan: - continue Ceftriaxone and azithromycin - f/u strep and legionella antigens - tylenol and lidocaine patch for pain Infectious Disease No acute concerns Renal/Electrolytes # SCHUYLER on CKD - baseline Cr 1.9, admission Cr 2.64 Plan: - daily BMP, Mag - strict I/O - avoid nephrotoxic agents Gastrointestinal/Liver # Cirrhosis # Moderate Ascites - CT abd- Moderate to large volume ascites increased compared to prior US examination - Seen by GI 09/05 admission. Recommended fibroscan at discharge Plan: - Consider paracentesis (refused in the past) - Sodium restriction to < 2g per day - fibroscan at discharge Endocrine - f/u A1c Heme/Onc No acute concerns Musculoskeletal Tylenol Feeding Full Liquid Analgesia Tylenol Sedation N/A VTE ppx DOAC HOB Eval 30 Degrees Ulcer ppx N/a Glycemic Control Target 140-180 SBT N/A Bowel Regimen Miralax/Senna Indwelling N/A Drug De-Escalation Dispo: Home Goals of Care: Code Status: Full Code Emergency Contact: PATIENT: EMERGENCY CONTACT #1: Kaitlin Hicks (Significant other) home: , work: EMERGENCY CONTACT #2: Nanci Medina (Relative) home: , work: This plan is preliminary until finalized by an attending physician. Kalyn Green DO Internal Medicine, PGY-3 Teaching physician note: History of Presenting Illness: As documented by the fellow/resident ROS, past medical History, past surgical History, Family/Social History and Medications: as per fellow/resident note Physical examination: as documented by the fellow/resident Assessment and Plan: 44-year-old male with a past medical history of HFrEF (EF 18% as of August 11, 2024), left bundlebranch block, hypertension, hyperlipidemia, history of DVT, cirrhosis, and CKD stage 3, admitted onApril 2024, to the family medicine service for acute decompensated heart failure and presumed community-acquired pneumonia. He initially presented to the ED with shortness of breath and right-sided rib and chest pain. On arrival, he was tachycardic, tachypneic, and hypotensive, though oxygenating adequately on room air. Labs showed acute kidney injury, elevated alkaline phosphatase, and bilirubin. He received a normal saline bolus, 150 mcg fentanyl, a lidocaine patch, and was started on cefepime and doxycycline for suspected pneumonia. He was admitted for further care. Echocardiogram showed EF 15% with severe mitral and tricuspid regurgitation, elevated central venous pressure, and a low cardiac output state. Cardiology was consulted and recommended resuming his home regimen of hydralazine and isosorbide dinitrate. Due to rising lactate levels, he was transferredto the CICU for initiation of IV inotropes. Upon arrival to the CICU, the patient denied current chest pain or shortness of breath. He did report intermittent burning chest discomfort, but no pressure- like pain. He denied orthopnea but did endorse paroxysmal nocturnal dyspnea and some lower extremity swelling. He stated he has been adherent with his medications but missed doses on Friday due to nausea, which had since resolved. He expressed a desire to be on the IV inotrope drip for only a short duration, stating he didn t want to feel tied down, though he had no concerns about the medication itself. He was counseled on the importance of medication adherence and offered treatment for nausea if symptoms return. On 10/02/2024, he refused heparin, dobutamine and ceftriaxone. He doesn't want to be attached to IV lines. I discussed with him the seriousness of his condition and went over the high risk of in untreated cardiogenic shock. He expressed understanding and wish to live. He agreed eventually on restarting IV medications and central venous catheter/[place] [facility] catheter Active Medical Problems: - Acute decompensated HFrEF (EF 15%) and cardiogenic shock - Severe mitral and tricuspid regurgitation - Pneumonia - SCHUYLER on CKD stage 3 - Cirrhosis - History of DVT - Hypertension - Hyperlipidemia Plan: - Continue IV inotropic support with patient education regarding goals of therapy - Resume home hydralazine and isosorbide per cardiology -Parenteral anticoagulation for recent LOWER EXTREMITIES DVT - Continue antibiotics for pneumonia (ceftriaxone and doxycycline) - Monitor renal function and volume status closely - Provide antiemetic support if nausea recurs - Reinforce importance of medication adherence and follow-up -Outpatient cardiac ischemic eval Code status: full EKG personally reviewed and analyzed Echocardiogram personally reviewed and analyzed Telemetry was personally reviewed and analyzed Pertinent charts, documentation, notes, and labs including CBC, BMP, BNP, troponin were personally reviewed and analyzed. I saw and evaluated the patient. I personally obtained the reardon and critical portions of the historyand physical exam. I reviewed the fellows's documentation and discussed the patient with the fellow. I agree with the fellow's medical decision making as documented in the fellow's note. Discussion of the management and/or interpretation of testing was communicated directly with the consulting health care team. Total duration of time spent with direct patient care, review of labs and imaging data, and coordination of care 30 minutes. Kathleen Burden MD MPH Stock [employer]ender and Endovascular Specialist [id number] History and physical note* Kathleen Burden MD, MPH - 10/02/2024 12:00 AM EDT Images from the original note were not included. [facility] Cardiac Intensive Care Unit - H&P Note Carlo Medina Age [age] year old male ROOM: [address] Admitted: 09/30/2024 4:07 PM Hospital Day: 2 History of Present Illness: CHIEF COMPLAINT: Chief Complaint Patient presents with Shortness of breath Pt c/o right sided rib pain, sob. Diarrhea x1 week, vomiting yesterday with cough and congestion. Carlo Medina is a 44 year old male admitted on 09/30/2024 with a PMH of HFrEF (EF 18% 08/11/24), LBBB, HTN, HLD, hx DVT, cirrhosis, CKD3 who was admitted to family medicine service for acute decompensated heart failure and pneumonia. He had originally presented to the ED on 09/30 for SOB and right sided rib/chest pain. He was tachycardic, tachypneac, hypotensive, but saturating well on room air in the ED. Patient with elevated alk phos and bili as well as SCHUYLER. Received normal saline bolus, lidocaine patch, fentanyl 150 mcg x1 andstarted on cefepime and doxycycline with cocern for CAP. Admitted to [facility]. Echo done with EF 15%, severe MR, severe TR, elevated CVP and a low cardiac output state. Cardiology consulted and recommended resuming home hydroal and isordil. Lactate was up-trending so he was transferred to CICU for IV inotropes. On arrival to CICU, patient denies chest pain and dyspnea currently. He states that he does have some burning chest pain off and on sometimes. Denies chest pressure. He denies orthopnea but reports PND. Reports some leg swelling. He reports compliance with his medication. Denies HAINES, fever, chills, nausea. Endorses abdominal and rib pain. Patient states that he only wants to be on the drip for onehour as he does not want to be tied down. He does not have any concerns about the medication itself. He also did not take his oral medication as he was nauseous on Friday. He declines any nauseaat present. Told him we can provide medications for nausea if needed. Advised him on the importanceof these medications. Patient confirmed full code. Medical History: Past Medical History: Diagnosis Date Chronic systolic heart failure (HCC) DVT (deep venous thrombosis) (HCC) Hypercholesteremia Iron deficiency anemia Stage 2 chronic kidney disease Vitamin D deficiency No past surgical history on file. No family history on file. Social History Tobacco Use Smoking status: Never Smokeless tobacco: Never No current facility-administered medications on file prior to encounter. Current Outpatient Medications on File Prior to Encounter Medication Sig Dispense Refill metoclopramide (REGLAN) 5 MG tablet Take 1 Tablet by mouth 4 times daily (before meals and at bedtime). Prn 40 Tablet 1 bumetanide (BUMEX) 1 MG tablet Take 2 Tablets by mouth 2 times daily. 120 Tablet 2 folic acid 1 MG tablet Take 1 Tablet by mouth daily. 30 Tablet 3 hydrALAZINE (APRESOLINE) 100 MG tablet Take 1 Tablet by mouth 3 times Daily. 60 Tablet 3 Apixaban (ELIQUIS) 5 MG tablet Take 5 mg by mouth 2 times daily. calcitRIOL (ROCALTROL) 0.5 MCG capsule Take 0.5 mcg by mouth 2 times daily. calcium carbonate (TUMS) 500 mg (200 mg elemental) tablet Take 1,000 mg by mouth 3 times daily. Allergies Allergen Reactions Torsemide Vomiting Reports did not tolerate, refuses to take again Sacubitril-Valsartan Vomiting Objective: Objective Temperature: [97.7 F (36.5 C)-98.4 F (36.9 C)] 97.7 F (36.5 C) Heart Rate: [96-112] 103 Respiratory Rate: [12-27] 18 BP: (93-113)/(72-95) 100/85 Intake/Output Summary (Last 24 hours) at 10/01/2024 1716 Last data filed at 10/01/2024 0512 Gross per 24 hour Intake 2140 ml Output -- Net 2140 ml Respiratory Support: O2 Device: Room air O2 Flow Rate (l/min): 2 liters LABS: CBC: (10/01/2024: 4:36 AM) WBC 10.9 \ Hgb 14.2 / Plt 227 / Hct 42.8 \ BMP: (10/01/2024: 4:36 AM) 138 104 41 Gluc 151 4.5 20 2.33 Mg PO4 Ca 2.0 4.9 8.4 (1.6-2.8) (2.5-4.8) (8.4-10) Baseline Weight 157 lbs Admission Weight Weight: 166 lb 6.4 oz (75.5 kg) (stand weight scale) Today's Weight Weight: 166 lb 6.4 oz (75.5 kg) (stand weight scale) BMI 21.95 Change in Weight: Current value is 166.4 lb (75.478 kg) on 10/01/2024 at 0522 No other value found for comparison Active Meds: isosorbide dinitrate 20 mg 3x Daily acetaminophen 1,000 mg Once cefTRIAXone orderable 1,000 mg Q24H Antibiotic doxycycline 100 mg 2x Daily folic acid 1 mg Daily hydrALAZINE 100 mg 3x Daily Apixaban 5 mg 2x Daily lidocaine 1 Patch Every 24 hours Exam: General: NAD. HEENT: EOMI. Conjunctiva clear. No scleral icterus. Heart: RRR. No murmurs or rub. Lungs: Diminished in RLL otherwise CTA Abdomen: Soft. Non-distended. Mild tenderness in right upper quadrant Extremities: +1 edema in LLE Neuro: No focal deficits. A&Ox3 Skin: Warm & dry. Imaging/Cardiac Findings: ECG: sinus tachycardia, intraventricular block Telemetry findings reviewed: Echocardiogram date: 10/01/2024 SUMMARY Left ventricular systolic function is severely globally reduced. The left ventricular ejection fraction (LVEF) is 15% +/- 5% Diastolic LV function assessed by resting Doppler is abnormal. Mixed (concentric and eccentric) left ventricular hypertrophy is present. Right ventricular function is severely reduced. Dilated left ventricle, left atrium, right ventricle, right atrium. There is mild aortic regurgitation. There is severe mitral regurgitation. There is severe wide opened tricuspid regurgitation. The pulmonary artery systolic pressure could not be estimated. Noninvasive hemodynamic assessment is consistent with an elevated CVP, an elevated LVEDP, a low cardiac output state. Last Stress Test: NA Last Cath: NA Chest x-ray was last done on 09/30/2024 Echocardiogram date: 10/01/2024 Consults: IP CARDIOLOGY HEART FAILURE CONSULT Assessment and Plan: Carlo Medina is a 44 year old male with PMHx of HFrEF (EF 18% 08/11/24), LBBB, HTN, HLD, bilateral DVT (05/2024), cirrhosis, and CKD 3 who presented to [place] ED on 09/30/2024 for SOB and R ribpain. Home medications: - eliquis 5 mg BID - bumex 2 mg BID - folic acid 1 mg daily - hydralazine 100 mg TID - isordil 20 mg TID - metoprolol 25 daily Neurologic No acute concerns Cardiovascular # ADHF # HFrEF (EF 15% 10/02/23) # Severe MR # c/f cardiogenic shock - echo concerning for low cardiac output state, elevated CVP - uptrending lactate (5.0 -> 4.3 -> 3.5 -> 5.0) Plan: - trend lactate q6h - GDMT: - afterload reduction: resume home hydralazine 100 TID, isordil 20 TID - MRA: - BB: hold metoprolol 25 mg daily - SGLT2: - continue home eliquis 5 mg - start inotropes: IV dobutamine 2.5 mg - per HF, resume diuretics on 10/03 - f/u lipid profile Respiratory #Community acquired PNA - RLL consolidation on CXR - patient with productive cough, pleuritic pain - satting well on RA Plan: - continue Ceftriaxone and azithromycin - f/u strep and legionella antigens - tylenol and lidocaine patch for pain Infectious Disease No acute concerns Renal/Electrolytes # SCHUYLER on CKD - baseline Cr 1.9, admission Cr 2.64 Plan: - daily BMP, Mag - strict I/O - avoid nephrotoxic agents Gastrointestinal/Liver # Cirrhosis # Moderate Ascites - CT abd- Moderate to large volume ascites increased compared to prior US examination - Seen by GI 09/05 admission. Recommended fibroscan at discharge Plan: - Consider paracentesis (refused in the past) - Sodium restriction to < 2g per day - fibroscan at discharge Endocrine - f/u A1c Heme/Onc No acute concerns Musculoskeletal Tylenol Feeding Full Liquid Analgesia Tylenol Sedation N/A VTE ppx DOAC HOB Eval 30 Degrees Ulcer ppx N/a Glycemic Control Target 140-180 SBT N/A Bowel Regimen Miralax/Senna Indwelling N/A Drug De-Escalation Dispo: Home Goals of Care: Code Status: Full Code Emergency Contact: PATIENT: EMERGENCY CONTACT #1: Kaitlin Hicks (Significant other) home: , work: EMERGENCY CONTACT #2: Nanci Medina (Relative) home: , work: This plan is preliminary until finalized by an attending physician. Kalyn Green DO Internal Medicine, PGY-3 Teaching physician note: History of Presenting Illness: As documented by the fellow/resident ROS, past medical History, past surgical History, Family/Social History and Medications: as per fellow/resident note Physical examination: as documented by the fellow/resident Assessment and Plan: 44-year-old male with a past medical history of HFrEF (EF 18% as of August 11, 2024), left bundlebranch block, hypertension, hyperlipidemia, history of DVT, cirrhosis, and CKD stage 3, admitted onApril 2024, to the family medicine service for acute decompensated heart failure and presumed community-acquired pneumonia. He initially presented to the ED with shortness of breath and right-sided rib and chest pain. On arrival, he was tachycardic, tachypneic, and hypotensive, though oxygenating adequately on room air. Labs showed acute kidney injury, elevated alkaline phosphatase, and bilirubin. He received a normal saline bolus, 150 mcg fentanyl, a lidocaine patch, and was started on cefepime and doxycycline for suspected pneumonia. He was admitted for further care. Echocardiogram showed EF 15% with severe mitral and tricuspid regurgitation, elevated central venous pressure, and a low cardiac output state. Cardiology was consulted and recommended resuming his home regimen of hydralazine and isosorbide dinitrate. Due to rising lactate levels, he was transferredto the CICU for initiation of IV inotropes. Upon arrival to the CICU, the patient denied current chest pain or shortness of breath. He did report intermittent burning chest discomfort, but no pressure- like pain. He denied orthopnea but did endorse paroxysmal nocturnal dyspnea and some lower extremity swelling. He stated he has been adherent with his medications but missed doses on Friday due to nausea, which had since resolved. He expressed a desire to be on the IV inotrope drip for only a short duration, stating he didn t want to feel tied down, though he had no concerns about the medication itself. He was counseled on the importance of medication adherence and offered treatment for nausea if symptoms return. On 10/02/2024, he refused heparin, dobutamine and ceftriaxone. He doesn't want to be attached to IV lines. I discussed with him the seriousness of his condition and went over the high risk of in untreated cardiogenic shock. He expressed understanding and wish to live. He agreed eventually on restarting IV medications and central venous catheter/[place] [facility] catheter Active Medical Problems: - Acute decompensated HFrEF (EF 15%) and cardiogenic shock - Severe mitral and tricuspid regurgitation - Pneumonia - SCHUYLER on CKD stage 3 - Cirrhosis - History of DVT - Hypertension - Hyperlipidemia Plan: - Continue IV inotropic support with patient education regarding goals of therapy - Resume home hydralazine and isosorbide per cardiology -Parenteral anticoagulation for recent LOWER EXTREMITIES DVT - Continue antibiotics for pneumonia (ceftriaxone and doxycycline) - Monitor renal function and volume status closely - Provide antiemetic support if nausea recurs - Reinforce importance of medication adherence and follow-up -Outpatient cardiac ischemic eval Code status: full EKG personally reviewed and analyzed Echocardiogram personally reviewed and analyzed Telemetry was personally reviewed and analyzed Pertinent charts, documentation, notes, and labs including CBC, BMP, BNP, troponin were personally reviewed and analyzed. I saw and evaluated the patient. I personally obtained the reardon and critical portions of the historyand physical exam. I reviewed the fellows's documentation and discussed the patient with the fellow. I agree with the fellow's medical decision making as documented in the fellow's note. Discussion of the management and/or interpretation of testing was communicated directly with the consulting health care team. Total duration of time spent with direct patient care, review of labs and imaging data, and coordination of care 30 minutes. Kathleen Burden MD MPH Stock Blender and Endovascular Specialist * Lance Ennis MD - 10/01/2024 8:56 AM EDT Images from the original note were not included. Family Medicine Attending H&P Carlo Medina [id number] Inpatient Attending/Teaching Physician Note: I saw and evaluated Carlo Medina I personally obtained the reardon and critical portions of the history and physical exam. I reviewed the resident's documentation and discussed the patient with the resident. I agree with the resident's medical decision making as documented in the resident's note. Chief Complaint : shortness of breath HPI: Carlo Medina is a 44 year old male with past medical history of heart failure with reduced ejection fraction, left bundle branch block, hypertension, hyperlipidemia, bilateral DVT and CKD stage 3presented to the [place] emergency department yesterday with shortness of breath and right rib pain. Patient reported one-week of a nonproductive cough with chills. Patient denied any fevers. Patient also complained of vague abdominal pain,with nausea and vomiting, non-bilious emesis, no melenaor hematochezia. Past Medical History: Diagnosis Date Chronic systolic heart failure (HCC) DVT (deep venous thrombosis) (HCC) Hypercholesteremia Iron deficiency anemia Stage 2 chronic kidney disease Vitamin D deficiency No past surgical history on file. No current facility-administered medications on file prior to encounter. Current Outpatient Medications on File Prior to Encounter Medication Sig Dispense Refill metoclopramide (REGLAN) 5 MG tablet Take 1 Tablet by mouth 4 times daily (before meals and at bedtime). Prn 40 Tablet 1 bumetanide (BUMEX) 1 MG tablet Take 2 Tablets by mouth 2 times daily. 120 Tablet 2 folic acid 1 MG tablet Take 1 Tablet by mouth daily. 30 Tablet 3 hydrALAZINE (APRESOLINE) 100 MG tablet Take 1 Tablet by mouth 3 times Daily. 60 Tablet 3 Apixaban (ELIQUIS) 5 MG tablet Take 5 mg by mouth 2 times daily. calcitRIOL (ROCALTROL) 0.5 MCG capsule Take 0.5 mcg by mouth 2 times daily. calcium carbonate (TUMS) 500 mg (200 mg elemental) tablet Take 1,000 mg by mouth 3 times daily. Allergies: Allergies Allergen Reactions Torsemide Vomiting Reports did not tolerate, refuses to take again Sacubitril-Valsartan Vomiting No family history on file. Social History Tobacco Use Smoking status: Never Smokeless tobacco: Never Substance Use Topics Alcohol use: Not on file OBJECTIVE: BP 100/85 (BP Location: left arm) Pulse 103 Temp 97.7 F (36.5 C) (Oral) Resp 18 Ht 6' 1 (1.854 m) Comment: pt stated Wt 166 lb 6.4 oz (75.5 kg) Comment: stand weight scale SpO2 96% BMI21.95 kg/m General appearance: alert, pleasant, no distress Lungs: clear to auscultation Heart: Regular rate and rhythm. Normal S1 and S2. No murmurs, clicks or gallops. Abdomen: Abdomen soft, non-tender. BS normal. No masses, No organomegaly Extremities: edema bilateral trace Basic Metabolic Panel 10/01/2024 09/30/2024 4:36 AM 4:21 PM Na 138 134 K 4.5 4.0 Cl 104 98 CO2 20 23 Gap 19 17 Glu 151 189 BUN 41 43 Cr 2.33 2.64 Ca 8.4 9.4 Mg 2.0 2.3 PO4 4.9 -- CBC/PT/INR 10/01/2024 09/30/2024 09/30/2024 4:36 AM 4:34 PM 4:21 PM WBC 10.9 -- 7.7 RBC 4.11 -- 4.57 Hgb 14.2 -- 15.6 Hct 42.8 -- 47.7 MCV 104 -- 105 RDW 14.9 -- 15.4 Plt 227 -- 299 INR -- 1.54 -- The medical decision making, including the assessment(s) and plan(s), was done together with the resident. The documentation of the medical decision making, including any diagnostic tests ordered and/or reviewed by the resident, was reviewed and confirmed/revised as follows: Impression/Plan: Carlo Medina is a 44 year old with severe heart failure with reduced ejection fraction admittedwith community-acquired pneumonia and decompensated heart failure Community-acquired pneumonia Continue ceftriaxone and doxycycline Monitor temperature and WBC Heart failure with reduced ejection fraction Check echo For further cardiology consultation Continue home Bumex ? Hypoperfusion with increased lactic acid Viral gastroenteritis Will monitor and treat symptomatically Fluids/Electrolytes/Nutrition Hold on IV fluids Daily weights Monitor I's and O's Daily BMPs Disposition : Home when clinically stable Lance Ennis MD [id number] * Harris Hutchinson MD - 09/30/2024 11:12 PM EDT Images from the original note were not included. SENIOR NOTE I saw and evaluated the patient. I personally obtained the reardon and critical portions of the historyand physical exam. I reviewed the global marketing intern's documentation and discussed the patient with the global marketing intern.I agree with the global marketing intern's medical decision making as documented in the global marketing intern's note. Further details provided in the global marketing intern's note. Briefly: SUBJECTIVE Carlo Medina is a 44 year old male w/ PMH of HFrEF (18% by TTE 08/11/24), LBBB, HTN, HLD, bilateral DVT (05/2024), and CKD 3 who presented to [place] ED on 09/30/2024 for SOB and R rib pain. Reports having non-productive cough for the past week and developed very intense R. Rib pain today at 2pm. Pt additionally reports chills but no temps at home. He has been having abdominal pain, n/v/d; non-bloody, non-bilious emesis, no melena or hematochezia. ED COURSE: VS: ED Triage Vitals BP Systolic BP Percentile Diastolic BP Percentile Heart Rate Respiratory Rate 09/30/24 1619 -- -- 09/30/24 1619 09/30/24 1619 104/91 (!) 110 (!) 21 Temperature Temp src SpO2 Weight Height 09/30/24 1624 -- 09/30/24 1619 -- 09/30/24 2306 97.6 F (36.4 C) 98 % 6' 1 (1.854 m) Head Circumference Peak Flow Pain Score Pain Loc Pain Education -- -- 09/30/24 1745 -- -- 5 Exclude from Growth Chart -- -Glucose: 189, Na: 134, K: 4.0, M.3, Cr: 2.64, Bicarb: 23 -WBC: 7.7, Hgb: 15.6, Platelet: 299, INR: 1.54 -ALT: 28, AST: 19, Alk Phos: 331 -ESR: N/A, CRP: N/A -Lactate: 3.8 -Troponin: 32 -BNP 6,470.0 -TSH: N/A Imaging: CXR: IMPRESSION: Enlargement of the cardiopericardial silhouette without large new focal consolidation, sizable pneumothorax or pleural effusion. Limited exam. CT abdo/pelv: IMPRESSION: 1. Right lower lobe pneumonia. 2. Moderate to large volume ascites increased compared to prior ultrasound examination. 3. No pneumoperitoneum. 4. Findings suggest underlying liver disease. Clinical correlation is recommended. 5. No urolithiasis or obstructive uropathy. 6. Cardiomegaly. OBJECTIVE BP 105/86 (BP Location: left arm) Pulse 112 Temp 97.6 F (36.4 C) Resp 20 Ht 6' 1 (1.854 m) SpO2 100% BMI 21.24 kg/m PHYSICAL EXAM Physical Exam Constitutional: Appearance: Normal appearance. He is ill-appearing. HENT: Head: Normocephalic and atraumatic. Mouth/Throat: Mouth: Mucous membranes are moist. Pharynx: Oropharynx is clear. Eyes: Extraocular Movements: Extraocular movements intact. Conjunctiva/sclera: Conjunctivae normal. Pupils: Pupils are equal, round, and reactive to light. Cardiovascular: Rate and Rhythm: Normal rate and regular rhythm. Pulses: Normal pulses. Heart sounds: Normal heart sounds. Comments: JVD present Pulmonary: Effort: Pulmonary effort is normal. Breath sounds: Rales (Decreased breath sounds in bilateral lower lobes; presence of fine inspiratory crackles in RLL) present. No wheezing. Chest: Chest wall: Tenderness (TTP to R. ribs T10-12) present. Abdominal: General: Bowel sounds are normal. There is distension (Mild distension present). Palpations: Abdomen is soft. Tenderness: There is abdominal tenderness (Generalized tenderness). Musculoskeletal: Right lower leg: Edema (2+ pitting edema to lower shins and trace edema in upper shins) present. Left lower leg: Edema (2+ pitting edema to lower shins and trace edema in upper shins) present. Skin: General: Skin is warm. Neurological: General: No focal deficit present. Mental Status: He is alert and oriented to person, place, and time. Mental status is at baseline. Psychiatric: Mood and Affect: Mood normal. Behavior: Behavior normal. Thought Content: Thought content normal. Judgment: Judgment normal. Rest of labs and imaging per global marketing intern note ASSESSMENT/PLAN Carlo Medina is a 44 year old male w/ PMH of HFrEF (18% by TTE 08/11/24), LBBB, HTN, HLD, bilateral DVT (05/2024), and CKD 3 who presented to [place] ED on 09/30/2024 for SOB and R rib pain. #. CAP Plan: - CFX, Doxy - F/u Strep Pneumo Ag and Legionella Ag and narrow abx accordingly - Monitor WBC and temps - VibraPep - Consider spot dose of Solumedrol x1 given intensity of chest pain if doesn't improve in the next 24 hrs - Dilaudid prn severe pain given CKD (no NSAIDS) and PO intolerance (can't get oxy or tylenol at this time) # Viral gastroenteritis # PO intolerance # SCHUYLER # Lactic acidosis Plan: - Encourage PO intake and ADAT - Trend LA - s/p 1.5L boluses in ED; will hold off on further bolusing at this time given fluid overload and significantly reduced EF - Trend Cr - Avoid nephrotoxic agents # ADHF Plan: - Echo - Consult HF - Will give IV Lasix 20 mg x1 now; will diureses daily with close monitoring of I/O's - Continue home GDMT: Hydralazine 100 mg TID, Isordil 60 mg TID, Bumex 2 mg BID. Hold Toprol-XL 25 mg since not taking at home - Hold off on starting Valsartan at this time given ADHF and SCHUYLER. Plan in last admission was to start Valsartan 40 mg BID when SCHUYLER improves - Daily weights and Accurate I/O's Rest per global marketing intern note. Harris Hutchinson MD Family Medicine PGY2 * Pauline Denny MD - 09/30/2024 10:43 PM EDT Images from the original note were not included. [place] [id number] [facility] H&P Carlo Medina 44 year old male : 1980 PCP: Yuval Gayle MD Admit Date: 09/30/2024 SUBJECTIVE: CC: Chief Complaint Patient presents with Shortness of breath Pt c/o right sided rib pain, sob. Diarrhea x1 week, vomiting yesterday with cough and congestion. HPI: Carlo Mdeina is a 44 year old male with PMHx of HFrEF (EF 18% 07/2024), LBBB, HTN, HLD, bilateral DVT (05/2024), and CKD 3 who presented to [place] ED on 09/30/2024 for SOB and R rib pain. Pt reports SOB, dry cough, nausea, vomiting, diarrhea, and intermittent lower abd pain for the pastweek. The R rib pain started today at 2 PM and is exacerbated with deep breaths. He denies any recent falls or trauma. His SOB predated the other sxs but has also worsened this past week, is persistent even during rest, and is worse when speaking. Pt had poor PO intake over the past week and vomited any food he ate. He tolerated fluids a bit better. Pt reports his diarrhea is a regular color and his last BM was this morning prior to going to [place]. He denies any hematochezia, melena, or hematemesis. Pt also endorses mild chills and cold hands. He denies any headache, dizziness, chest pain, palpitations, or sick contacts. He states he is compliant with medications. Chart Review: Admission 08/31-09/11/24- Presented to [place] ED for evaluation of intermittent abd pain, N/V, and SOB of 1 wk duration. In the ED, pt presented afebrile, HDS, in no acute distress on RA. Initial workup including BNP 3900, CXR w/ pulmonary vascular congestion, concerning for ADHF. Treated with IVF and Zofran, transferred to [facility] and initially admitted to [facility] on 09/01. HF team consulted 09/02, initiated IV Bumex 2mg BID, afterload reduction w/ hydralazine/isordil. Hospital course c/b patient refusal/nursing difficulty to obtain blood for labs, SCHUYLER, and lactic acidosis. Transferred to CICU on for afterload reduction and plan for IV inotropes given concern for cardiogenic shock. Wasrecommended dobutamine gtt, better IV access, however pt declined all procedures and infusions. Theharm of him declining these interventions was discussed with him at length by CICU team and he acknowledged the risk and adamantly refused. He was subsequently transferred to Cardiac Telemetry Unit on 09/08 for ADHFrEF. Hydral increased to 100mg TID, isordil 60mg TID, bumex 2mg was continued. Admission 08/09-08/20/24- Presented to [facility] ED on 08/09/24 for chest pain, SOB, abd pain, and lightheadedness. In ED, initial labs significant for Cr 1.94, ALP 194, AST/ALT 52/95, WBC 8.8 wnl, Hb 14.2, HS troponin 31, BNP 16,371. EKG showed sinus tachycardia. CXR showed enlarged cardiac silhouette. Given IV morphine and zofran in ED. Admitted for further evaluation and management. Renal US showed findings compatible with medical renal disease, no significant hydronephrosis, and small amount of perihepatic fluid. Cardiology consulted, started GDMT, recommended swan guided therapy if patient does not improve with PO meds, but pt adamantly refusing swan. Diuresed with IV medications.Tx c/b refusal to accept IV electrolytes. Nephrology consulted. Notified by [facility] that patient's insurance is out of network, pt accepted for transfer to [facility] but refused bed when it was available. Home meds: GDMT: Isordil 20 mg 3 tablets TID Bumex 2 mg BID Apresoline 100 mg TID Toprol XL 25 mg (not taking) Valsartan 40 mg BID (not taking) Eliquis 5 mg BID Reglan 5 mg QID PRN Folic acid Calcitriol 0.5 mcg BID TUMS PRN 10-point ROS negative other than stated above. ED Course Summary: In the ED, pt was tachycardic, tachypnic, hypotensive, afebrile, saturating well ORA, and in no acute distress. Labs notable for total bili 5.7, alk phos 331, Cr 2.64, GFR 29, MCV 105, trop 38--> 32, PT 18.2, INR 1.54, lactate 5 --> 4.3, BNP 6470, VBG without hypercapnia or acidosis. CT A/P revealed RLL PNA, mod ascites, liver disease, no urolithiasis or obstructive uropathy, and cardiomegaly. CXR showed enlargement of pericardial silhouette, no focal consolidation, no pneumothorax, or pleural effusion. Patient was given NS 500 mL bolus x3, lidocaine patch, fentanyl 150 mcg x1, and started on cefepime 2000 mg IV and doxycycline 100 mg PO. Pt was recommended for admission to [facility] forfurther management. Vitals: 09/30/24 2123 BP: Pulse: (!) 105 Resp: 12 Temp: SpO2: 95% 7.7 \ 15.6 / 299 / 47.7 \ CBC: 09/30/2024: 4:21 PM 134 98 43 / \ 189 4.0 23 2.64 BMP: 09/30/2024: 4:21 PM Ma.3 I/Os: Intake/Output Summary (Last 24 hours) at 09/30/20242151 Last data filed at 09/30/20242122 Gross per 24 hour Intake 1500 ml Output -- Net 1500 ml Meds/Intervention: Medications lidocaine (LIDODERM) 4 % patch (1 Patch Transdermal Patch Applied 09/30/24 164) sodium chloride 0.9 % iv bolus (0 mL Intravenous IV Stop 09/30/24 1745) fentaNYL (SUBLIMAZE) 100 MCG/2ML injection (50 mcg Intravenous Push Given 09/30/24 165) sodium chloride 0.9 % iv bolus (0 mL Intravenous IV Stop 09/30/24 181) cefepime (MAXIPIME) 2,000 mg in sterile water for injection 20 mL IV push (0 mg Intravenous IV Stop09/30/24 190) doxycycline (VIBRA-TABS) 100 MG tablet (100 mg Oral Given 09/30/241836) sodium chloride 0.9 % iv bolus (0 mL Intravenous IV Stop 09/30/242122) HISTORY: PMH: has a past medical history of Chronic systolic heart failure (HCC), DVT (deep venous thrombosis) ([facility]), Hypercholesteremia, Iron deficiency anemia, Stage 2 chronic kidney disease, and Vitamin D deficiency. Meds: Current Outpatient Medications Medication Instructions Apixaban (ELIQUIS) 5 mg, 2 TIMES DAILY bumetanide (BUMEX) 2 mg, Oral, 2 TIMES DAILY calcitRIOL (ROCALTROL) 0.5 mcg, 2 TIMES DAILY calcium carbonate (TUMS) 1,000 mg, 3 TIMES DAILY folic acid 1 mg, Oral, DAILY hydrALAZINE (APRESOLINE) 100 MG tablet Take 1 Tablet by mouth 3 times Daily. isosorbide dinitrate (ISORDIL) 20 MG tablet Take 3 Tablets by mouth 3 times Daily. metoclopramide (REGLAN) 5 mg, Oral, 4 TIMES DAILY BEFORE MEALS & AT BEDTIME, Prn Allergies: Allergies Allergen Reactions Torsemide Vomiting Reports did not tolerate, refuses to take again Sacubitril-Valsartan Vomiting PSH: has no past surgical history on file. PFH: family history is not on file. Social: reports that he has never smoked. He has never used smokeless tobacco. No history on file for alcohol use and drug use. OBJECTIVE: Patient Vitals for the past 24 hrs: BP Temp Pulse Resp SpO2 09/30/242122 -- -- (!) 105 12 95 % 09/30/242121 -- -- (!) 112 (!) 24 95 % 09/30/242119 104/90 -- (!) 109 (!) 27 -- 09/30/242039 105/88 -- (!) 108 19 98 % 09/30/24 1950 113/95 -- (!) 103 15 96 % 09/30/24 1910 107/86 -- (!) 104 13 100 % 09/30/24 1850 93/73 -- (!) 106 (!) 22 100 % 09/30/24 1830 99/84 -- 99 19 97 % 09/30/24 1821 94/80 -- (!) 102 (!) 24 100 % 09/30/24 1724 -- -- 96 15 96 % 09/30/24 1717 96/72 -- 99 17 -- 09/30/24 1712 93/80 -- (!) 102 15 -- 09/30/24 1655 98/79 -- (!) 104 13 -- 09/30/24 1624 -- 97.6 F (36.4 C) -- -- -- 09/30/24 1619 104/91 -- (!) 110 (!) 21 98 % Vital sign ranges over the past 24 hours (retrieved 09/30/2024 at 9:52 PM): Tmax (24 hours): 97.6 F (36.4 C) Pulse Av.2 Min: 96 Max: 112 Systolic (24hrs), Av , Min:93 , Max:113 Diastolic (24hrs), Av, Min:72, Max:95 No data recorded Resp Av.3 Min: 12 Max: 27 SpO2 Av.5 % Min: 95 % Max: 100 % Intake/Output Summary (Last 24 hours) at 09/30/20242151 Last data filed at 09/30/20242122 Gross per 24 hour Intake 1500 ml Output -- Net 1500 ml Comprehensive Physical Exam: BP:104/90 HR:105 T:97.6 BMI:There is no weight on file. Physical Exam Constitutional: Appearance: Normal appearance. He is ill-appearing. HENT: Head: Normocephalic and atraumatic. Nose: Nose normal. Mouth/Throat: Mouth: Mucous membranes are moist. Pharynx: Oropharynx is clear. Eyes: General: Right eye: No discharge. Left eye: No discharge. Neck: Vascular: JVD present. Cardiovascular: Rate and Rhythm: Normal rate and regular rhythm. Heart sounds: Murmur heard. Systolic murmur is present. Comments: Heart sounds best auscultated on L mid axillary line Pulmonary: Effort: Accessory muscle usage, prolonged expiration and respiratory distress present. Breath sounds: Transmitted upper airway sounds present. Examination of the right-lower field reveals decreased breath sounds. Decreased breath sounds present. No wheezing, rhonchi or rales. Chest: Chest wall: Tenderness present. Abdominal: General: There is distension. Palpations: There is no mass. Tenderness: There is abdominal tenderness. There is guarding. Hernia: No hernia is present. Musculoskeletal: General: No tenderness. Cervical back: Normal range of motion. Right lower leg: Edema present. Left lower leg: Edema present. Skin: General: Skin is warm and dry. Neurological: General: No focal deficit present. Mental Status: He is alert and oriented to person, place, and time. Psychiatric: Behavior: Behavior normal. MEDS: lidocaine 1 Patch Every 24 hours LABS: CBC/PT/INR 09/30/2024 09/30/2024 4:34 PM 4:21 PM WBC -- 7.7 RBC -- 4.57 Hgb -- 15.6 Hct -- 47.7 MCV -- 105 RDW -- 15.4 Plt -- 299 INR 1.54 -- WBC/Diff 09/30/2024 4:21 PM Neutro% 70.4 Lymph% 21.5 Eos% 0.1 Basic Metabolic Panel 09/30/2024 4:21 PM Na 134 K 4.0 Cl 98 CO2 23 Gap 17 Glu 189 BUN 43 Cr 2.64 Ca 9.4 Mg 2.3 Fingerstick Glucose (last 72 hours) None LIPIDS 08/27/2024 10:35 AM Chol- esterol 204 TG 106 HDL 28 LDL 162 Chol / HDL 7.29 LDL / HDL 5.79 Non HDL 176 Hepatic/Biliary/Pancreas 09/30/2024 4:21 PM T Prot 6.5 Albumin 3.8 D Bili 2.40 T Bili 5.7 Alk Phos 331 ALT 28 AST 19 Lipase 15 Arterial Blood Gases None No results found for: HBA1C Lab Results Component Value Date TSH 0.566 08/27/2024 CULTURES: Blood Culture No lab values to display. Sputum Culture None Urine Culture (last 1 year) 08/27/2024 10:35 AM Urine culture No growth of greater than 1,000 CFU/ml IMAGING: XR CHEST AP OR PA 1 VIEW Result Date: 09/30/2024 IMPRESSION: Enlargement of the cardiopericardial silhouette without large new focal consolidation, sizable pneumothorax or pleural effusion. Limited exam. CT ABDOMEN/PELVIS W/O CONTRAST Result Date: 09/30/2024 IMPRESSION: 1. Right lower lobe pneumonia. 2. Moderate to large volume ascites increased compared to prior ultrasound examination. 3. No pneumoperitoneum. 4. Findings suggest underlying liver disease. Clinical correlation is recommended. 5. No urolithiasis or obstructive uropathy. 6. Cardiomegaly. EK/3- Sinus tachycardia , LA enlargement, Right superior axis deviation, Nonspecific intraventricular block ASSESSMENT/PLAN: Carlo Medina is a 44 year old male with PMHx of HFrEF (EF 18% 08/11/24), LBBB, HTN, HLD, bilateral DVT (05/2024), and CKD 3 who presented to [place] ED on 09/30/2024 for SOB and R rib pain. ACUTE PROBLEMS: # Community Acquired Pneumonia -Pt w/ cough, dyspnea, and CXR demonstrates RLL consolidation -Admission WBC= 7.7 -PSI score= 86 points, risk class III -COVID/Influenza panel negative -Wide DDx: Bacterial PNA vs. Viral PNA vs. Aspiration PNA vs. Bronchitis vs. Lung Abscess vs. Lung Neoplasm vs. Hypersensitivity Pneumonitis -S/p cefepime 09/30 Plan: -Empiric IV CTX 1g q24hr and doxycycline 100 mg PO BID (SD 09/30) -F/u strep pneumo antigen and legionella antigen -F/u Bcx -Daily CBC, and monitor fever curve -Bronchopulmonary Hygiene # ADHF # HFrEF (18% 07/2024) # HTN - Trop 38-->32 and EKG w/o acute ischemic changes therefore low suspicion for ischemia as the precipitating cause -Admission weight: 161 lbs -BNP 6470 PLAN: - Bumex 2 mg BID - Isordil 60 mg TID - Hydralazine 100 mg TID - Consult HF, appreciate recs - IV diuresis TBD - F/u Echo - Strict I/Os and daily weights - Keep Mg > 2 and K > 4 # SCHUYLER in setting of CKD -Baseline Cr= ~1.9 -Admission Cr= 2.64 -Suspect pre-renal 2/2 decreased renal perfusion (hx poor oral intake or sepsis) -Patient did NOT receive IV contrast in the ED -Lactate 5 --> 4.3 -S/p NS 500 mL bolus x3 Plan: -IV Fluid hydration PRN -F/u lactate -Monitor BMP -Strict I/Os -Avoid NSAIDs -Avoid nephrotoxic agents # Mild/moderate Ascites - CT abd- Moderate to large volume ascites increased compared to prior US examination -Wide DDx: Medication Non-compliance vs. Worsening of Underlying Cirrhosis vs. vs. Acute Infection (SBP) vs. Malignancy vs. Heart Failure -Admission MELD-Na Score= 28 points, 19.6% estimated 90-day mortality Plan: -IV diuresis TBD -Consider RUQ US with doppler/ascites survey -Sodium restriction to < 2g per day CHRONIC PROBLEMS: # Bilateral DVT - Eliquis 5 mg Chronic medications being held (check box daily after med review): [x] Bumex 2 mg BID held on 10/01/24 in s/o IV diuresis PPX/MISC: DVT/PE Prophylaxis: Eliquis 5 mg GI Prophylaxis: none Bowel Regimen: No current facility-administered medications for this encounter. metoclopramide (REGLAN) 5 MG tablet Take 1 Tablet by mouth 4 times daily (before meals and at bedtime). Prn Pain Control: No medications of specified category were found Diet: No diet orders on file Fluids: None Code: Prior Social: Extended Emergency Contact Information Primary Emergency Contact: Kaitlin Hicks Mobile Relation: Significant other Secondary Emergency Contact: Nanci Medina Mobile Relation: Relative Dispo: Home when medically ready Anticipate discharge once above concerns are resolved. Plan discussed with senior resident, Dr. Hutchinson. Plan is preliminary until discussed with attending physician, Vargas Fisher MD Nicole Touzard, MD ANASTACIA MS Family Medicine- PGY 1 FM Team Pager: [phone] documented in this [id number] Progress note* Transfer Note - Carleen Weber MD - 10/01/2024 4:00 PM EDT TRANSFER NOTE Patient: Mr. Carlo Medina, a 44 year old (Full Code) Room: [place] [address] 1980 [facility] TO cardiac icu Admit Date: 09/30/2024 Today's Date: 10/01/2024 Length of stay: 1 day(s) HOSPITAL COURSE: Carlo Medina is a 44 year old male w/ PMH of HFrEF (18% by TTE 08/11/24), LBBB, HTN, HLD, bilateral DVT (05/2024), and CKD 3 who presented to [place] ED on 09/30/2024 for SOB and R rib pain, admitted for management of lower lobe pneumonia. Started on Doxycycline/Ceftriaxone (SD 4/3 - ) for management of CAP. Initial labs notable for lactic acidosis. Pt given total 1.5L of IV fluids for management of hypoperfusion. Patient found to have ascites on imaging, and history of out of network echocardiogram showing EF 18%, TTE ordered, showing worsening of EF to 15 +/-5% with severe tricuspid regurgitation. Cardiology consulted inpatient and given severity of cardiac dysfunction, worsening of l actic acidosis to 5.0, and fine balance between fluid resuscitation and diuresis, patient was recommended to transfer to CICU for iv inotropes in the short term. TO DO: [] Complete course of ceftriaxone and doxycycline (SD 4/3) for CAP [] F/u strep pneumo and legionella [] F/u blood cultures [] Optimize GDMT as able [] Inpatient workup of cirrhosis vs Outpatient liver clinic Disposition: TBD Inpatient CONSULTS: IP CARDIOLOGY HEART FAILURE CONSULT Outpatient f/u: PCP PROBLEM LIST: Refer to progress notes Report called to dialysis clinical manager at 6:36 PM Carleen Weber MD Family Medicine PGY-2 [facility] Work Phone: [phone] Consult note* Aryan Cervantes MD - 10/01/2024 10:00 AM EDTAssociated Order(s): IP CARDIOLOGY HEART FAILURE CONSULT Images from the original note were not included. New Patient Consult HF Consult Service 10/01/2024 10:00 AM Name: Carlo Medina Room: [place] [address] : 1980 male 44 year old Admit Date: 09/30/2024 Length of stay: 1 day(s) Consultation Requested by: Lance Ennis MD PCP: Yuval Gayle MD REASON FOR CONSULT Elevated BNP HPI 44 year old male with: - HFrEF EF 18%, NICM - LBBB - HTN - HLD - Bilateral DVT on apixaban - CKDIII Presents with SOB and cough, found to have R PNA. Also has elevated TB and alk phos. CT scan with RPNA, moderate to large ascites, and suggestive of liver disease. We are consulted for GDMT management and elevated NTproBNP Patient with elevated lactate on arrival to 5, improved to 3.5 with fluids, continues to trend down. Follows at [facility]. Last seen recently in Jul, with some medication changes but he unfortunately did not pick those medications up. Cardiac medications: Current Cardiac Medications Direct Factor Xa Inhibitors Instructions Apixaban (ELIQUIS) tablet 5 mg, Oral, 2 TIMES DAILY Vasodilators Instructions hydrALAZINE (APRESOLINE) tablet 100 mg, Oral, THREE TIMES DAILY 0900, 1300, 1700, Sound-Alike / Look-Alike WARNING: Please confirm medication selection. CARDIAC ROS As above PMH Past Medical History: Diagnosis Date Chronic systolic heart failure (HCC) DVT (deep venous thrombosis) (HCC) Hypercholesteremia Iron deficiency anemia Stage 2 chronic kidney disease Vitamin D deficiency PSH No past surgical history on file. FH No family history on file. SOC. HX Social History Tobacco Use Smoking status: Never Smokeless tobacco: Never ALLERGIES Allergies Allergen Reactions Torsemide Vomiting Reports did not tolerate, refuses to take again Sacubitril-Valsartan Vomiting MEDICATIONS IP MEDS: acetaminophen 650 mg Once cefTRIAXone orderable 1,000 mg Q24H Antibiotic doxycycline 100 mg 2x Daily folic acid 1 mg Daily hydrALAZINE 100 mg 3x Daily Apixaban 5 mg 2x Daily lidocaine 1 Patch Every 24 hours IV: PRN: metoclopramide 10 mg Q6H PRN MEDICATIONS GRAVE DIGGER: Prior to Admission medications Medication Sig Start Date End Date Taking? Authorizing Provider Apixaban (ELIQUIS) 5 MG tablet Take 5 mg by mouth 2 times daily. NON-[facility], PROVIDER Cholecalciferol 50 MCG (2000 UT) CAPS Take 1 Capsule by mouth daily. NON- [facility], PROVIDER losartan (COZAAR) 50 MG tablet Take 50 mg by mouth daily. 08/04/24 08/04/25 NON- [facility], PROVIDER losartan (COZAAR) 25 MG tablet 07/30/24 NON-[facility], PROVIDER magnesium oxide (MAG-OX) 400 (240 Mg) MG TABS tablet Take 400 mg by mouth daily. 07/31/24 NON-[facility], PROVIDER metoprolol (TOPROL-XL) 25 mg XL tablet Take 25 mg by mouth daily. 08/21/24 08/21/25 [facility] PROVIDER pantoprazole (PROTONIX) 40 MG tablet Take 40 mg by mouth daily. [facility], PROVIDER potassium chloride SA (K-DUR) 20 MEQ controlled release tablet 07/30/24 [facility], PROVIDER sodium bicarbonate 650 MG tablet Take 2 Tablets by mouth 2 times daily. [facility], PROVIDER spironolactone (ALDACTONE) 25 MG tablet Take 25 mg by mouth daily. 08/04/24 08/04/25 [facility], PROVIDER hydrALAZINE (APRESOLINE) 25 MG tablet 1 tablet with food Orally three times a day [facility], PROVIDER isosorbide dinitrate (ISORDIL) 20 MG tablet Take 3 Tablets by mouth 3 times daily. [facility], PROVIDER metoclopramide (REGLAN) 5 MG tablet Take 1 Tablet by mouth 4 times daily (before meals and at bedtime). Prn 09/17/24 Yes Yuval Gayle MD bumetanide (BUMEX) 1 MG tablet Take 2 Tablets by mouth 2 times daily. 09/11/24 10/11/24 Yes Ashu Aburto MD folic acid 1 MG tablet Take 1 Tablet by mouth daily. 09/12/24 Yes Ashu Aburto MD hydrALAZINE (APRESOLINE) 100 MG tablet Take 1 Tablet by mouth 3 times Daily. 09/11/24 Yes Ashu Aburto MD Apixaban (ELIQUIS) 5 MG tablet Take 5 mg by mouth 2 times daily. 07/16/24 NON- [facility], PROVIDER calcitRIOL (ROCALTROL) 0.5 MCG capsule Take 0.5 mcg by mouth 2 times daily. 08/20/24 Yes [facility], PROVIDER calcium carbonate (TUMS) 500 mg (200 mg elemental) tablet Take 1,000 mg by mouth 3 times daily. 08/20/24 08/20/25 Yes [facility], PROVIDER VITALS SIGNS/ VENT/ GTT/ INTAKE/ OUPUT Patient Vitals for the past 24 hrs: BP Temp Temp src Pulse Resp SpO2 O2 Device O2 Flow Rate (l/min) 10/01/24 0830 100/85 97.7 F (36.5 C) Oral 103 18 96 % Room air -- 10/01/24 0522 -- -- -- -- -- -- Room air -- 10/01/24 0340 105/79 98.4 F (36.9 C) Oral 99 18 95 % Room air -- 10/01/24 0130 -- -- -- -- -- -- Room air -- 09/30/24 2335 -- 97.9 F (36.6 C) Oral -- -- -- Nasal cannula 2 liters 09/30/24 2306 105/86 -- -- 112 20 100 % Nasal cannula 2 09/30/242122 -- -- -- (!) 105 12 95 % -- -- 09/30/242121 -- -- -- (!) 112 (!) 24 95 % -- -- 09/30/242119 104/90 -- -- (!) 109 (!) 27 -- -- -- 09/30/242039 105/88 -- -- (!) 108 19 98 % -- -- 09/30/24 1950 113/95 -- -- (!) 103 15 96 % -- -- 09/30/24 1910 107/86 -- -- (!) 104 13 100 % -- -- 09/30/24 1850 93/73 -- -- (!) 106 (!) 22 100 % -- -- 09/30/24 1830 99/84 -- -- 99 19 97 % -- -- 09/30/24 1821 94/80 -- -- (!) 102 (!) 24 100 % -- -- 09/30/24 1724 -- -- -- 96 15 96 % -- -- 09/30/24 1717 96/72 -- -- 99 17 -- -- -- 09/30/24 1712 93/80 -- -- (!) 102 15 -- -- -- 09/30/24 1655 98/79 -- -- (!) 104 13 -- -- -- 09/30/24 1624 -- 97.6 F (36.4 C) -- -- -- -- -- -- 09/30/24 1619 104/91 -- -- (!) 110 (!) 21 98 % -- -- Intake/Output Summary (Last 24 hours) at 10/01/2024 1000 Last data filed at 10/01/2024 0512 Gross per 24 hour Intake 2140 ml Output -- Net 2140 ml Net IO Since Admission: 2,140 mL [10/01/24 1000] Wt Readings from Last 5 Encounters: 10/01/24 166 lb 6.4 oz (75.5 kg) 09/17/24 161 lb (73 kg) 09/11/24 160 lb 4.8 oz (72.7 kg) 08/27/24 163 lb (73.9 kg) PHYSICAL EXAM BP 100/85 (BP Location: left arm) Pulse 103 Temp 97.7 F (36.5 C) (Oral) Resp 18 Ht 6' 1 (1.854 m) Comment: pt stated Wt 166 lb 6.4 oz (75.5 kg) Comment: stand weight scale SpO2 96% BMI21.95 kg/m Appearance: Normal Findings: alert, oriented, no acute distress Skin: negative Eyes: normal ENMT: Unremarkable Neck: positive findings: JVD - 10 cm above sternal notch Lungs: clear to auscultation Cardiac: regular rate and rhythm without murmurs, rubs, or gallops Abdomen: Abdomen soft, non-tender. BS normal. No masses, No organomegaly Extremities: Extremities normal. No deformities, edema, or skin discoloration Neurologic: Intact and symmetric. Peripheral Pulses: radial=4/4, femoral=4/4, popliteal=4/4, dorsalis pedis=4/4, GENERAL LABS CBC (last 3 years, up to 8 values) 10/01/2024 09/30/2024 09/09/2024 09/08/2024 09/06/2024 09/06/2024 09/05/2024 09/04/2024 4:36 AM 4:21 PM 4:01 AM 1:10 AM 8:42 PM 9:40 AM 9:37 AM 9:50 AM WBC 10.9 7.7 8.8 8.4 7.7 7.1 6.6 7.2 RBC 4.11 4.57 4.28 4.19 4.31 4.26 4.46 4.27 Hgb 14.2 15.6 14.7 14.4 14.8 14.6 15.4 14.7 Hct 42.8 47.7 43.5 43.0 43.9 42.7 45.3 44.1 MCV 104 105 102 103 102 100 102 103 RDW 14.9 15.4 13.8 13.6 13.9 13.9 13.9 14.2 Plt 227 299 278 278 268 279 274 226 BMP (last 3 years, up to 8 values) 10/01/2024 09/30/2024 09/09/2024 09/08/2024 09/06/2024 09/06/2024 09/05/2024 09/04/2024 4:36 AM 4:21 PM 4:01 AM 1:10 AM 8:42 PM 9:40 AM 9:37 AM 9:50 AM Na 138 134 139 141 138 140 137 134 134 K 4.5 4.0 3.9 4.1 3.9 3.8 3.5 4.3 4.6 Cl 104 98 97 96 96 98 95 96 99 CO2 20 23 31 32 29 29 27 21 17 Gap 19 17 15 17 17 17 19 21 23 Glu 151 189 110 101 133 133 151 129 150 BUN 41 43 36 34 39 44 49 52 51 Cr 2.33 2.64 1.81 1.68 1.85 1.93 2.40 2.60 2.73 Ca 8.4 9.4 7.7 7.9 8.0 8.2 8.6 9.0 8.7 eGFR 34 29 46 50 45 43 33 30 28 Date of last serum creatinine: 10/01/2024 Estimated Creatinine Clearance: 42.3 mL/min (A) (by C-G formula based on SCr of 2.33 mg/dL (H)). Estimated Glomerular Filtration Rate: 34.1 mL/min/1.73m2 (A) (by CKD-EPI based on SCr of 2.33 mg/dL(H)). Magnesium (mg/dL) Date Value 10/01/2024 2.0 09/30/2024 2.3 LFT's (last 3 years, up to 8 values) 09/30/2024 09/09/2024 09/08/2024 09/06/2024 09/06/2024 09/05/2024 09/04/2024 09/02/2024 4:21 PM 4:01 AM 1:10 AM 8:42 PM 9:40 AM 9:37 AM 9:50 AM 6:45 AM T Prot 6.5 6.1 6.4 6.4 6.4 6.7 7.1 6.3 6.6 Albumin 3.8 3.6 3.7 3.7 3.6 3.8 4.0 3.6 3.8 D Bili 2.40 0.79 0.85 0.81 1.04 1.38 1.61 1.18 1.03 T Bili 5.7 2.2 2.2 2.4 2.7 3.4 3.9 3.4 3.5 Alk Phos 331 202 247 224 233 260 304 160 269 ALT 28 37 42 44 46 52 62 44 57 AST 19 24 27 25 25 29 53 26 64 CARDIAC LABS HS Troponin I Date Value Ref Range Status 09/30/2024 32 (H) <=15 ng/L Final 09/30/2024 38 (H) <=15 ng/L Final 09/04/2024 38 (H) <=15 ng/L Final No results found for: TROPONIN B Type Natriuretic Peptide (pg/mL) Date Value 09/30/2024 6,470.0 (H) 08/31/2024 3,904.0 (H) No results found for: HBA1C Lipids (last 3 years, up to 8 values) 08/27/2024 10:35 AM Chol- esterol 204 TG 106 HDL 28 LDL 162 Chol / HDL 7.29 LDL / HDL 5.79 Non HDL 176 CARDIAC TESTS ECG: LBBB ECHO: Echocardiogram date: Not Found No results found for: LVEF EF 18% at [facility] LHC/ RHC: Non-obstructive CAD IMPRESSION Acute on chronic HFrEF with low cardiac output state Severe MR Severe TR Type 2 ND 2/2 supply demand mismatch RECOMMENDATIONS - Recommend no more fluid administration, and no diuresis either for the next 48 hours - Continue to trend lactate to clearance - Resume home hydralazine 100 mg TID and isordil 20 mg TID - Resume home Bumex 1 mg BID after 48 hours - If lactic acidosis does not improve, would have low threshold to transfer for IV inotropes Vadim Zee MD Cardiovascular Fellow, PGY6 Department of Cardiovascular Diseases Heart and Vascular [facility] Teaching Physician Note: I saw and evaluated the patient. I personally obtained the reardon and critical portions of the historyand physical exam. I reviewed the resident's documentation and discussed the patient with the resident. I agree with the resident's medical decision making as documented in the resident's note. Aryan Cervantes MD [id number] Consult note* Janay Melo - 10/01/2024 9:04 AM EDT Images from the original note were not included. Dietitian vs DietaryTech: Clearance Rep Diet Body Make Up Artist Nutrition Screening Reason for visit: Positive nutrition screen for poor oral intake and weight loss Assessment Admitting Diagnosis: No admission diagnoses are documented for this encounter. High risk nutrition diagnosis: No - no points Past Medical History: Past Medical History: Diagnosis Date Chronic systolic heart failure (HCC) DVT (deep venous thrombosis) (HCC) Hypercholesteremia Iron deficiency anemia Stage 2 chronic kidney disease Vitamin D deficiency Food Allergies: NKFA Labs: LFT's (last 3 years, up to 8 values) 09/30/2024 09/09/2024 09/08/2024 09/06/2024 09/06/2024 09/05/2024 09/04/2024 09/02/2024 4:21 PM 4:01 AM 1:10 AM 8:42 PM 9:40 AM 9:37 AM 9:50 AM 6:45 AM T Prot 6.5 6.1 6.4 6.4 6.4 6.7 7.1 6.3 6.6 Albumin 3.8 3.6 3.7 3.7 3.6 3.8 4.0 3.6 3.8 D Bili 2.40 0.79 0.85 0.81 1.04 1.38 1.61 1.18 1.03 T Bili 5.7 2.2 2.2 2.4 2.7 3.4 3.9 3.4 3.5 Alk Phos 331 202 247 224 233 260 304 160 269 ALT 28 37 42 44 46 52 62 44 57 AST 19 24 27 25 25 29 53 26 64 Albumin: Greater than 3 - no points Prealbumin: n/a - no points Skin Integrity: No pressure ulcers at this time - no points Fluid Accumulation: Ascites - 2 points Diet Order: Full Liquid Supplements: none % PO Intake: Less than 50% for greater than and equal to 5 days - 4 points Intake difficulties: Decreased appetite - 0 points 6' 1[pt stated[ 166.4 lbs .75.5 kg Weight history: 189 lbs - Jun 2023 per Care Everywhere Weight Only Weight 08/27/2024 9:47 AM 163 lb 08/31/2024 2:49 PM 158 lb 09/03/2024 4:17 PM 164 lb 10.9 oz 09/05/2024 6:00 AM 159 lb 14.4 oz 09/06/2024 6:00 AM 160 lb 4.8 oz 09/08/2024 5:00 AM 157 lb 6.4 oz 09/09/2024 12:12 AM 160 lb 9.6 oz 09/10/2024 4:12 AM 157 lb 09/11/2024 12:00 AM 160 lb 4.8 oz 09/17/2024 11:35 AM 161 lb 10/01/2024 5:22 AM 166 lb 6.4 oz BMI: 21.95 BMI Screening value: 21 or greater - 0 points % Weight Loss: not significant Weight Loss Screening Value: Not significant - 0 points Education: No nutrition education indicated at this time. Comments: hx vomiting and diarrhea X 1 week. Tolerating some clear liquids. Currently denies n/v. Denies unintentional weight changes. Monitor. Number of Points: 6 Nutritional Plan of Care: Less than or equal to 6 points: At this time, patient is at low nutritionrisk. DTR to provide routine follow up. Will continue to follow, Janay Melo, Diet Body Make Up Artist Pager [phone] Time spent on patient care: 30 minutes [id number] History and physical note* Lance Ennis MD - 10/01/2024 8:56 AM EDT Images from the original note were not included. Family Medicine Attending H&P Carlo Medina [id number] Inpatient Attending/Teaching Physician Note: I saw and evaluated Carlo Medina I personally obtained the reardon and critical portions of the history and physical exam. I reviewed the resident's documentation and discussed the patient with the resident. I agree with the resident's medical decision making as documented in the resident's note. Chief Complaint : shortness of breath HPI: Carlo Medina is a 44 year old male with past medical history of heart failure with reduced ejection fraction, left bundle branch block, hypertension, hyperlipidemia, bilateral DVT and CKD stage 3presented to the [place] emergency department yesterday with shortness of breath and right rib pain. Patient reported one-week of a nonproductive cough with chills. Patient denied any fevers. Patient also complained of vague abdominal pain,with nausea and vomiting, non-bilious emesis, no melenaor hematochezia. Past Medical History: Diagnosis Date Chronic systolic heart failure (HCC) DVT (deep venous thrombosis) (HCC) Hypercholesteremia Iron deficiency anemia Stage 2 chronic kidney disease Vitamin D deficiency No past surgical history on file. No current facility-administered medications on file prior to encounter. Current Outpatient Medications on File Prior to Encounter Medication Sig Dispense Refill metoclopramide (REGLAN) 5 MG tablet Take 1 Tablet by mouth 4 times daily (before meals and at bedtime). Prn 40 Tablet 1 bumetanide (BUMEX) 1 MG tablet Take 2 Tablets by mouth 2 times daily. 120 Tablet 2 folic acid 1 MG tablet Take 1 Tablet by mouth daily. 30 Tablet 3 hydrALAZINE (APRESOLINE) 100 MG tablet Take 1 Tablet by mouth 3 times Daily. 60 Tablet 3 Apixaban (ELIQUIS) 5 MG tablet Take 5 mg by mouth 2 times daily. calcitRIOL (ROCALTROL) 0.5 MCG capsule Take 0.5 mcg by mouth 2 times daily. calcium carbonate (TUMS) 500 mg (200 mg elemental) tablet Take 1,000 mg by mouth 3 times daily. Allergies: Allergies Allergen Reactions Torsemide Vomiting Reports did not tolerate, refuses to take again Sacubitril-Valsartan Vomiting No family history on file. Social History Tobacco Use Smoking status: Never Smokeless tobacco: Never Substance Use Topics Alcohol use: Not on file OBJECTIVE: BP 100/85 (BP Location: left arm) Pulse 103 Temp 97.7 F (36.5 C) (Oral) Resp 18 Ht 6' 1 (1.854 m) Comment: pt stated Wt 166 lb 6.4 oz (75.5 kg) Comment: stand weight scale SpO2 96% BMI21.95 kg/m General appearance: alert, pleasant, no distress Lungs: clear to auscultation Heart: Regular rate and rhythm. Normal S1 and S2. No murmurs, clicks or gallops. Abdomen: Abdomen soft, non-tender. BS normal. No masses, No organomegaly Extremities: edema bilateral trace Basic Metabolic Panel 10/01/2024 09/30/2024 4:36 AM 4:21 PM Na 138 134 K 4.5 4.0 Cl 104 98 CO2 20 23 Gap 19 17 Glu 151 189 BUN 41 43 Cr 2.33 2.64 Ca 8.4 9.4 Mg 2.0 2.3 PO4 4.9 -- CBC/PT/INR 10/01/2024 09/30/2024 09/30/2024 4:36 AM 4:34 PM 4:21 PM WBC 10.9 -- 7.7 RBC 4.11 -- 4.57 Hgb 14.2 -- 15.6 Hct 42.8 -- 47.7 MCV 104 -- 105 RDW 14.9 -- 15.4 Plt 227 -- 299 INR -- 1.54 -- The medical decision making, including the assessment(s) and plan(s), was done together with the resident. The documentation of the medical decision making, including any diagnostic tests ordered and/or reviewed by the resident, was reviewed and confirmed/revised as follows: Impression/Plan: Carlo Medina is a 44 year old with severe heart failure with reduced ejection fraction admittedwith community-acquired pneumonia and decompensated heart failure Community-acquired pneumonia Continue ceftriaxone and doxycycline Monitor temperature and WBC Heart failure with reduced ejection fraction Check echo For further cardiology consultation Continue home Bumex ? Hypoperfusion with increased lactic acid Viral gastroenteritis Will monitor and treat symptomatically Fluids/Electrolytes/Nutrition Hold on IV fluids Daily weights Monitor I's and O's Daily BMPs Disposition : Home when clinically stable Lance Ennis MD [id number] [employer] Work Phone: [phone] History and physical note* Harris Hutchinson MD - 09/30/2024 11:12 PM EDT Images from the original note were not included. SENIOR NOTE I saw and evaluated the patient. I personally obtained the reardon and critical portions of the historyand physical exam. I reviewed the global marketing intern's documentation and discussed the patient with the global marketing intern.I agree with the global marketing intern's medical decision making as documented in the global marketing intern's note. Further details provided in the global marketing intern's note. Briefly: SUBJECTIVE Carlo Medina is a 44 year old male w/ PMH of HFrEF (18% by TTE 08/11/24), LBBB, HTN, HLD, bilateral DVT (05/2024), and CKD 3 who presented to [place] ED on 09/30/2024 for SOB and R rib pain. Reports having non-productive cough for the past week and developed very intense R. Rib pain today at 2pm. Pt additionally reports chills but no temps at home. He has been having abdominal pain, n/v/d; non-bloody, non-bilious emesis, no melena or hematochezia. ED COURSE: VS: ED Triage Vitals BP Systolic BP Percentile Diastolic BP Percentile Heart Rate Respiratory Rate 09/30/24 1619 -- -- 09/30/24 1619 09/30/24 1619 104/91 (!) 110 (!) 21 Temperature Temp src SpO2 Weight Height 09/30/24 1624 -- 09/30/24 1619 -- 09/30/24 2306 97.6 F (36.4 C) 98 % 6' 1 (1.854 m) Head Circumference Peak Flow Pain Score Pain Loc Pain Education -- -- 09/30/24 1745 -- -- 5 Exclude from Growth Chart -- -Glucose: 189, Na: 134, K: 4.0, M.3, Cr: 2.64, Bicarb: 23 -WBC: 7.7, Hgb: 15.6, Platelet: 299, INR: 1.54 -ALT: 28, AST: 19, Alk Phos: 331 -ESR: N/A, CRP: N/A -Lactate: 3.8 -Troponin: 32 -BNP 6,470.0 -TSH: N/A Imaging: CXR: IMPRESSION: Enlargement of the cardiopericardial silhouette without large new focal consolidation, sizable pneumothorax or pleural effusion. Limited exam. CT abdo/pelv: IMPRESSION: 1. Right lower lobe pneumonia. 2. Moderate to large volume ascites increased compared to prior ultrasound examination. 3. No pneumoperitoneum. 4. Findings suggest underlying liver disease. Clinical correlation is recommended. 5. No urolithiasis or obstructive uropathy. 6. Cardiomegaly. OBJECTIVE BP 105/86 (BP Location: left arm) Pulse 112 Temp 97.6 F (36.4 C) Resp 20 Ht 6' 1 (1.854 m) SpO2 100% BMI 21.24 kg/m PHYSICAL EXAM Physical Exam Constitutional: Appearance: Normal appearance. He is ill-appearing. HENT: Head: Normocephalic and atraumatic. Mouth/Throat: Mouth: Mucous membranes are moist. Pharynx: Oropharynx is clear. Eyes: Extraocular Movements: Extraocular movements intact. Conjunctiva/sclera: Conjunctivae normal. Pupils: Pupils are equal, round, and reactive to light. Cardiovascular: Rate and Rhythm: Normal rate and regular rhythm. Pulses: Normal pulses. Heart sounds: Normal heart sounds. Comments: JVD present Pulmonary: Effort: Pulmonary effort is normal. Breath sounds: Rales (Decreased breath sounds in bilateral lower lobes; presence of fine inspiratory crackles in RLL) present. No wheezing. Chest: Chest wall: Tenderness (TTP to R. ribs T10-12) present. Abdominal: General: Bowel sounds are normal. There is distension (Mild distension present). Palpations: Abdomen is soft. Tenderness: There is abdominal tenderness (Generalized tenderness). Musculoskeletal: Right lower leg: Edema (2+ pitting edema to lower shins and trace edema in upper shins) present. Left lower leg: Edema (2+ pitting edema to lower shins and trace edema in upper shins) present. Skin: General: Skin is warm. Neurological: General: No focal deficit present. Mental Status: He is alert and oriented to person, place, and time. Mental status is at baseline. Psychiatric: Mood and Affect: Mood normal. Behavior: Behavior normal. Thought Content: Thought content normal. Judgment: Judgment normal. Rest of labs and imaging per global marketing intern note ASSESSMENT/PLAN Carlo Medina is a 44 year old male w/ PMH of HFrEF (18% by TTE 08/11/24), LBBB, HTN, HLD, bilateral DVT (05/2024), and CKD 3 who presented to [place] ED on 09/30/2024 for SOB and R rib pain. #. CAP Plan: - CFX, Doxy - F/u Strep Pneumo Ag and Legionella Ag and narrow abx accordingly - Monitor WBC and temps - VibraPep - Consider spot dose of Solumedrol x1 given intensity of chest pain if doesn't improve in the next 24 hrs - Dilaudid prn severe pain given CKD (no NSAIDS) and PO intolerance (can't get oxy or tylenol at this time) # Viral gastroenteritis # PO intolerance # SCHUYLER # Lactic acidosis Plan: - Encourage PO intake and ADAT - Trend LA - s/p 1.5L boluses in ED; will hold off on further bolusing at this time given fluid overload and significantly reduced EF - Trend Cr - Avoid nephrotoxic agents # ADHF Plan: - Echo - Consult HF - Will give IV Lasix 20 mg x1 now; will diureses daily with close monitoring of I/O's - Continue home GDMT: Hydralazine 100 mg TID, Isordil 60 mg TID, Bumex 2 mg BID. Hold Toprol-XL 25 mg since not taking at home - Hold off on starting Valsartan at this time given ADHF and SCHUYLER. Plan in last admission was to start Valsartan 40 mg BID when SCHUYLER improves - Daily weights and Accurate I/O's Rest per global marketing intern note. Harris Hutchinson MD Family Medicine PGY2 [id number] History and physical note* Pauline Denny MD - 09/30/2024 10:43 PM EDT Images from the original note were not included. [place] [id number] [facility]PATIENT [facility]ICE H&P Carlo Medina 44 year old male : 1980 PCP: Yuval Gayle MD Admit Date: 09/30/2024 SUBJECTIVE: CC: Chief Complaint Patient presents with Shortness of breath Pt c/o right sided rib pain, sob. Diarrhea x1 week, vomiting yesterday with cough and congestion. HPI: Carlo Medina is a 44 year old male with PMHx of HFrEF (EF 18% 07/2024), LBBB, HTN, HLD, bilateral DVT (05/2024), and CKD 3 who presented to [place] ED on 09/30/2024 for SOB and R rib pain. Pt reports SOB, dry cough, nausea, vomiting, diarrhea, and intermittent lower abd pain for the pastweek. The R rib pain started today at 2 PM and is exacerbated with deep breaths. He denies any recent falls or trauma. His SOB predated the other sxs but has also worsened this past week, is persistent even during rest, and is worse when speaking. Pt had poor PO intake over the past week and vomited any food he ate. He tolerated fluids a bit better. Pt reports his diarrhea is a regular color and his last BM was this morning prior to going to [place]. He denies any hematochezia, melena, or hematemesis. Pt also endorses mild chills and cold hands. He denies any headache, dizziness, chest pain, palpitations, or sick contacts. He states he is compliant with medications. Chart Review: Admission 08/31-09/11/24- Presented to [place] ED for evaluation of intermittent abd pain, N/V, and SOB of 1 wk duration. In the ED, pt presented afebrile, HDS, in no acute distress on RA. Initial workup including BNP 3900, CXR w/ pulmonary vascular congestion, concerning for ADHF. Treated with IVF and Zofran, transferred to [facility] and initially admitted to [facility] on 09/01. HF team consulted 09/02, initiated IV Bumex 2mg BID, afterload reduction w/ hydralazine/isordil. Hospital course c/b patient refusal/nursing difficulty to obtain blood for labs, SCHUYLER, and lactic acidosis. Transferred to CICU on for afterload reduction and plan for IV inotropes given concern for cardiogenic shock. Wasrecommended dobutamine gtt, better IV access, however pt declined all procedures and infusions. Theharm of him declining these interventions was discussed with him at length by CICU team and he acknowledged the risk and adamantly refused. He was subsequently transferred to Cardiac Telemetry Unit on 09/08 for ADHFrEF. Hydral increased to 100mg TID, isordil 60mg TID, bumex 2mg was continued. Admission 08/09-08/20/24- Presented to [facility] ED on 08/09/24 for chest pain, SOB, abd pain, and lightheadedness. In ED, initial labs significant for Cr 1.94, ALP 194, AST/ALT 52/95, WBC 8.8 wnl, Hb 14.2, HS troponin 31, BNP 16,371. EKG showed sinus tachycardia. CXR showed enlarged cardiac silhouette. Given IV morphine and zofran in ED. Admitted for further evaluation and management. Renal US showed findings compatible with medical renal disease, no significant hydronephrosis, and small amount of perihepatic fluid. Cardiology consulted, started GDMT, recommended swan guided therapy if patient does not improve with PO meds, but pt adamantly refusing swan. Diuresed with IV medications.Tx c/b refusal to accept IV electrolytes. Nephrology consulted. Notified by [facility] that patient's insurance is out of network, pt accepted for transfer to [facility] but refused bed when it was available. Home meds: GDMT: Isordil 20 mg 3 tablets TID Bumex 2 mg BID Apresoline 100 mg TID Toprol XL 25 mg (not taking) Valsartan 40 mg BID (not taking) Eliquis 5 mg BID Reglan 5 mg QID PRN Folic acid Calcitriol 0.5 mcg BID TUMS PRN 10-point ROS negative other than stated above. ED Course Summary: In the ED, pt was tachycardic, tachypnic, hypotensive, afebrile, saturating well ORA, and in no acute distress. Labs notable for total bili 5.7, alk phos 331, Cr 2.64, GFR 29, MCV 105, trop 38--> 32, PT 18.2, INR 1.54, lactate 5 --> 4.3, BNP 6470, VBG without hypercapnia or acidosis. CT A/P revealed RLL PNA, mod ascites, liver disease, no urolithiasis or obstructive uropathy, and cardiomegal y. CXR showed enlargement of pericardial silhouette, no focal consolidation, no pneumothorax, or pleural effusion. Patient was given NS 500 mL bolus x3, lidocaine patch, fentanyl 150 mcg x1, and started on cefepime 2000 mg IV and doxycycline 100 mg PO. Pt was recommended for admission to [facility] forfurther management. Vitals: 09/30/24 2123 BP: Pulse: (!) 105 Resp: 12 Temp: SpO2: 95% 7.7 \ 15.6 / 299 / 47.7 \ CBC: 09/30/2024: 4:21 PM 134 98 43 / \ 189 4.0 23 2.64 BMP: 09/30/2024: 4:21 PM Ma.3 I/Os: Intake/Output Summary (Last 24 hours) at 09/30/20242151 Last data filed at 09/30/20242122 Gross per 24 hour Intake 1500 ml Output -- Net 1500 ml Meds/Intervention: Medications lidocaine (LIDODERM) 4 % patch (1 Patch Transdermal Patch Applied 09/30/24 1648) sodium chloride 0.9 % iv bolus (0 mL Intravenous IV Stop 09/30/24 174) fentaNYL (SUBLIMAZE) 100 MCG/2ML injection (50 mcg Intravenous Push Given 09/30/24 165) sodium chloride 0.9 % iv bolus (0 mL Intravenous IV Stop 09/30/241812) cefepime (MAXIPIME) 2,000 mg in sterile water for injection 20 mL IV push (0 mg Intravenous IV Stop09/30/24 190) doxycycline (VIBRA-TABS) 100 MG tablet (100 mg Oral Given 09/30/24 183) sodium chloride 0.9 % iv bolus (0 mL Intravenous IV Stop 09/30/242122) HISTORY: PMH: has a past medical history of Chronic systolic heart failure (HCC), DVT (deep venous thrombosis) (HCC), Hypercholesteremia, Iron deficiency anemia, Stage 2 chronic kidney disease, and Vitamin D deficiency. Meds: Current Outpatient Medications Medication Instructions Apixaban (ELIQUIS) 5 mg, 2 TIMES DAILY bumetanide (BUMEX) 2 mg, Oral, 2 TIMES DAILY calcitRIOL (ROCALTROL) 0.5 mcg, 2 TIMES DAILY calcium carbonate (TUMS) 1,000 mg, 3 TIMES DAILY folic acid 1 mg, Oral, DAILY hydrALAZINE (APRESOLINE) 100 MG tablet Take 1 Tablet by mouth 3 times Daily. isosorbide dinitrate (ISORDIL) 20 MG tablet Take 3 Tablets by mouth 3 times Daily. metoclopramide (REGLAN) 5 mg, Oral, 4 TIMES DAILY BEFORE MEALS & AT BEDTIME, Prn Allergies: Allergies Allergen Reactions Torsemide Vomiting Reports did not tolerate, refuses to take again Sacubitril-Valsartan Vomiting PSH: has no past surgical history on file. PFH: family history is not on file. Social: reports that he has never smoked. He has never used smokeless tobacco. No history on file for alcohol use and drug use. OBJECTIVE: Patient Vitals for the past 24 hrs: BP Temp Pulse Resp SpO2 09/30/242122 -- -- (!) 105 12 95 % 09/30/242121 -- -- (!) 112 (!) 24 95 % 09/30/242119 104/90 -- (!) 109 (!) 27 -- 09/30/242039 105/88 -- (!) 108 19 98 % 09/30/24 1950 113/95 -- (!) 103 15 96 % 09/30/24 1910 107/86 -- (!) 104 13 100 % 09/30/24 1850 93/73 -- (!) 106 (!) 22 100 % 09/30/24 1830 99/84 -- 99 19 97 % 09/30/24 1821 94/80 -- (!) 102 (!) 24 100 % 09/30/24 1724 -- -- 96 15 96 % 09/30/24 1717 96/72 -- 99 17 -- 09/30/24 1712 93/80 -- (!) 102 15 -- 09/30/24 1655 98/79 -- (!) 104 13 -- 09/30/24 1624 -- 97.6 F (36.4 C) -- -- -- 09/30/24 1619 104/91 -- (!) 110 (!) 21 98 % Vital sign ranges over the past 24 hours (retrieved 09/30/2024 at 9:52 PM): Tmax (24 hours): 97.6 F (36.4 C) Pulse Av.2 Min: 96 Max: 112 Systolic (24hrs), Av , Min:93 , Max:113 Diastolic (24hrs), Av, Min:72, Max:95 No data recorded Resp Av.3 Min: 12 Max: 27 SpO2 Av.5 % Min: 95 % Max: 100 % Intake/Output Summary (Last 24 hours) at 09/30/20242151 Last data filed at 09/30/2024 2123 Gross per 24 hour Intake 1500 ml Output -- Net 1500 ml Comprehensive Physical Exam: BP:104/90 HR:105 T:97.6 BMI:There is no weight on file. Physical Exam Constitutional: Appearance: Normal appearance. He is ill-appearing. HENT: Head: Normocephalic and atraumatic. Nose: Nose normal. Mouth/Throat: Mouth: Mucous membranes are moist. Pharynx: Oropharynx is clear. Eyes: General: Right eye: No discharge. Left eye: No discharge. Neck: Vascular: JVD present. Cardiovascular: Rate and Rhythm: Normal rate and regular rhythm. Heart sounds: Murmur heard. Systolic murmur is present. Comments: Heart sounds best auscultated on L mid axillary line Pulmonary: Effort: Accessory muscle usage, prolonged expiration and respiratory distress present. Breath sounds: Transmitted upper airway sounds present. Examination of the right-lower field reveals decreased breath sounds. Decreased breath sounds present. No wheezing, rhonchi or rales. Chest: Chest wall: Tenderness present. Abdominal: General: There is distension. Palpations: There is no mass. Tenderness: There is abdominal tenderness. There is guarding. Hernia: No hernia is present. Musculoskeletal: General: No tenderness. Cervical back: Normal range of motion. Right lower leg: Edema present. Left lower leg: Edema present. Skin: General: Skin is warm and dry. Neurological: General: No focal deficit present. Mental Status: He is alert and oriented to person, place, and time. Psychiatric: Behavior: Behavior normal. MEDS: lidocaine 1 Patch Every 24 hours LABS: CBC/PT/INR 09/30/2024 09/30/2024 4:34 PM 4:21 PM WBC -- 7.7 RBC -- 4.57 Hgb -- 15.6 Hct -- 47.7 MCV -- 105 RDW -- 15.4 Plt -- 299 INR 1.54 -- WBC/Diff 09/30/2024 4:21 PM Neutro% 70.4 Lymph% 21.5 Eos% 0.1 Basic Metabolic Panel 09/30/2024 4:21 PM Na 134 K 4.0 Cl 98 CO2 23 Gap 17 Glu 189 BUN 43 Cr 2.64 Ca 9.4 Mg 2.3 Fingerstick Glucose (last 72 hours) None LIPIDS 08/27/2024 10:35 AM Chol- esterol 204 TG 106 HDL 28 LDL 162 Chol / HDL 7.29 LDL / HDL 5.79 Non HDL 176 Hepatic/Biliary/Pancreas 09/30/2024 4:21 PM T Prot 6.5 Albumin 3.8 D Bili 2.40 T Bili 5.7 Alk Phos 331 ALT 28 AST 19 Lipase 15 Arterial Blood Gases None No results found for: HBA1C Lab Results Component Value Date TSH 0.566 08/27/2024 CULTURES: Blood Culture No lab values to display. Sputum Culture None Urine Culture (last 1 year) 08/27/2024 10:35 AM Urine culture No growth of greater than 1,000 CFU/ml IMAGING: XR CHEST AP OR PA 1 VIEW Result Date: 09/30/2024 IMPRESSION: Enlargement of the cardiopericardial silhouette without large new focal consolidation, sizable pneumothorax or pleural effusion. Limited exam. CT ABDOMEN/PELVIS W/O CONTRAST Result Date: 09/30/2024 IMPRESSION: 1. Right lower lobe pneumonia. 2. Moderate to large volume ascites increased compared to prior ultrasound examination. 3. No pneumoperitoneum. 4. Findings suggest underlying liver disease. Clinical correlation is recommended. 5. No urolithiasis or obstructive uropathy. 6. Cardiomegaly. EK/3- Sinus tachycardia , LA enlargement, Right superior axis deviation, Nonspecific intraventricular block ASSESSMENT/PLAN: Carlo Medina is a 44 year old male with PMHx of HFrEF (EF 18% 08/11/24), LBBB, HTN, HLD, bilateral DVT (05/2024), and CKD 3 who presented to [place] ED on 09/30/2024 for SOB and R rib pain. ACUTE PROBLEMS: # Community Acquired Pneumonia -Pt w/ cough, dyspnea, and CXR demonstrates RLL consolidation -Admission WBC= 7.7 -PSI score= 86 points, risk class III -COVID/Influenza panel negative -Wide DDx: Bacterial PNA vs. Viral PNA vs. Aspiration PNA vs. Bronchitis vs. Lung Abscess vs. Lung Neoplasm vs. Hypersensitivity Pneumonitis -S/p cefepime 09/30 Plan: -Empiric IV CTX 1g q24hr and doxycycline 100 mg PO BID (SD 09/30) -F/u strep pneumo antigen and legionella antigen -F/u Bcx -Daily CBC, and monitor fever curve -Bronchopulmonary Hygiene # ADHF # HFrEF (18% 07/2024) # HTN - Trop 38-->32 and EKG w/o acute ischemic changes therefore low suspicion for ischemia as the precipitating cause -Admission weight: 161 lbs -BNP 6470 PLAN: - Bumex 2 mg BID - Isordil 60 mg TID - Hydralazine 100 mg TID - Consult HF, appreciate recs - IV diuresis TBD - F/u Echo - Strict I/Os and daily weights - Keep Mg > 2 and K > 4 # SCHUYLER in setting of CKD -Baseline Cr= ~1.9 -Admission Cr= 2.64 -Suspect pre-renal 2/2 decreased renal perfusion (hx poor oral intake or sepsis) -Patient did NOT receive IV contrast in the ED -Lactate 5 --> 4.3 -S/p NS 500 mL bolus x3 Plan: -IV Fluid hydration PRN -F/u lactate -Monitor BMP -Strict I/Os -Avoid NSAIDs -Avoid nephrotoxic agents # Mild/moderate Ascites - CT abd- Moderate to large volume ascites increased compared to prior US examination -Wide DDx: Medication Non-compliance vs. Worsening of Underlying Cirrhosis vs. vs. Acute Infection (SBP) vs. Malignancy vs. Heart Failure -Admission MELD-Na Score= 28 points, 19.6% estimated 90-day mortality Plan: -IV diuresis TBD -Consider RUQ US with doppler/ascites survey -Sodium restriction to < 2g per day CHRONIC PROBLEMS: # Bilateral DVT - Eliquis 5 mg Chronic medications being held (check box daily after med review): [x] Bumex 2 mg BID held on 10/01/24 in s/o IV diuresis PPX/MISC: DVT/PE Prophylaxis: Eliquis 5 mg GI Prophylaxis: none Bowel Regimen: No current facility-administered medications for this encounter. metoclopramide (REGLAN) 5 MG tablet Take 1 Tablet by mouth 4 times daily (before meals and at bedtime). Prn Pain Control: No medications of specified category were found Diet: No diet orders on file Fluids: None Code: Prior Social: Extended Emergency Contact Information Primary Emergency Contact: Kaitlin Hicks Mobile Relation: Significant other Secondary Emergency Contact: Nanci Medina Mobile Relation: Relative Dispo: Home when medically ready Anticipate discharge once above concerns are resolved. Plan discussed with senior resident, Dr. Hutchinson. Plan is preliminary until discussed with attending physician, Vargas Fisher MD Nicole Touzard, MD [facility] Family Medicine- PGY 1 Team Pager: [phone] [phone] Emergency department Note* Homar Carey RN - 09/30/2024 7:01 PM EDT Pt refuses to swallow whole pills. Attempted with pudding and water. Pill then crushed and pt refused to take more than half [id number] Emergency department Note* Homar Carey RN - 09/30/2024 7:01 PM EDT Pt refuses to swallow whole pills. Attempted with pudding and water. Pill then crushed and pt refused to take more than half * Cipriano Sun RN - 09/30/2024 6:27 PM EDT notified of critical lactate value of 4.3 read back critical results. No New orders * Soraida Nixon RN - 09/30/2024 5:[address] BERG NOTIFIED OF CRITICAL LACTATE LEVEL OF 5.0. ORDERS FOLLOWED. * Vargas Berg MD - 09/30/2024 4:08 PM EDT Images from the original note were not included. EMERGENCY DEPARTMENT - VISIT NOTE HISTORY OF PRESENT ILLNESS Chief Complaint Patient presents with Shortness of breath Pt c/o right sided rib pain, sob. Diarrhea x1 week, vomiting yesterday with cough and congestion. HIPAA: Verbal permission granted from patient to discuss case, including protected health information, in front of family / friends in room at the time of the evaluation. Genetics Physician: not needed - patient preferred language is Moroccan. Carlo Medina is a 44 year old male with past medical history significant for history of CKD, CHF (EF is 18%), HTN, DVT on Eliquis, and Cirrhosis. He is presenting to the emergency department for pain in his R rib as well as SOB. Other symptoms include intermittent abdominal pain, coughing, vomiting, and diarrhea. Patient explains that the vomiting and dire have been present all week but the pain in the R rib is new. He denies any recent falls or injuries and says he will feel short of breath even when talking or sitting in bed. Patient says he will consume food and within an hour he will have a vomiting episode and will lose weight. He weighed himself today and reports that he was base line. Denies productive cough and nausea and says the pain is worse upon taking deep breaths. He is currently taking Eliquis. REVIEW OF SYSTEMS Review of Systems PAST HISTORY Pertinent Past History: Past Medical History: Diagnosis Date Chronic systolic heart failure (HCC) DVT (deep venous thrombosis) (HCC) Hypercholesteremia Iron deficiency anemia Stage 2 chronic kidney disease Vitamin D deficiency Patient Active Problem List: CKD (chronic kidney disease) [N18.9] Essential hypertension [I10] Elevated liver enzymes [R74.8] Acute deep vein thrombosis (DVT) of lower extremity ([facility]) [I82.409] HFrEF (heart failure with reduced ejection fraction) ([facility]) [I50.20] History of left bundle branch block (LBBB) [Z86.79] Acute kidney injury superimposed on CKD (HCC) [N17.9, N18.9] Pulmonary vascular congestion [R09.89] SOB (shortness of breath) [R06.02] Cardiogenic shock ([facility]) [R57.0] Pneumonia of right lower lobe due to infectious organism [J18.9] Pertinent Social History: Social History Tobacco Use Smoking status: Never Smokeless tobacco: Never PHYSICAL EXAM Physical Exam Vitals and nursing note reviewed. Constitutional: General: He is not in acute distress. Appearance: Normal appearance. Eyes: Extraocular Movements: Extraocular movements intact. Pupils: Pupils are equal, round, and reactive to light. Cardiovascular: Rate and Rhythm: Normal rate and regular rhythm. Pulses: Normal pulses. Heart sounds: Normal heart sounds. Comments: 1+ radial and DP pulses bilaterally, 1+pitting edema of the bilateral ankles. Pulmonary: Comments: Speaking in full sentences, satting in the high 90s on room air. Crackles in the right lower lung Abdominal: Palpations: Abdomen is soft. Comments: Mild diffuse abdominal pain without rebound or guarding. Musculoskeletal: Comments: Tenderness to palpation over the right inferior lateral aspect of the ribcage, no overlying erythema or crepitus Skin: General: Skin is warm and dry. Neurological: General: No focal deficit present. Mental Status: He is alert and oriented to person, place, and time. MEDICAL DECISION MAKING and ED COURSE Nursing triage and assessment notes reviewed and incorporated. On initial evaluation patient was speaking in full sentences, satting in the high 90s on room air. Endorsing right lower rib pain. Patient noted to have crackles in the right lower lung auscultation as well as mild generalized diffuse abdominal pain. Mild edema of the bilateral ankles the patient was states this is no worse than normal. Patient does have 1+ radial and DP pulses bilaterally. EKG demonstrates sinus tachycardia without acute ST segment changes, initial mild elevation of troponin to 38, downtrending to 32 on repeat, low concern for acute coronary syndrome, possible mild demand ischemia in the setting of tachycardia/fullness versus elevation from SCHUYLER. Patient does have elevationof creatinine to 2.64 up from 1.8. No acute leukocytosis or anemia. Hepatic function notable for increase in bilirubin to 5.7 from 2.2. VBG without evidence of acidosis. BNP noted to be elevated to 6400 and patient was initial lactate was 5. Given the patient was had vomiting and diarrhea I have concern that his SCHUYLER maybe prerenal from mild volume depletion however given his significant heart failure with decreased ejection fraction patient was initially only given 500 cc of fluid due to concern for overloading him. After initial 500 cc patient was tachycardia had improved and he had mild improvement of his blood pressure. Patient was subsequently given 2 more 500 cc boluses, patient was downtrending of lactate from 5-4.3 8-3.8. CT scan of the abdomen pelvis did not demonstrate evidence of acute intra-abdominal process though there was an increase in ascites from previous scans. Given the patient has been having vomiting/diarrhea for over a week I have lower concern for SBP though there was not a clear pocket that was able to be tapped. CT scan also demonstrated a right lower lobe pneumonia which corresponds with the patient was crackles/chest pain. Patient was given cefepime and doxycycline for antibiotic coverage, doxycycline chosen given patient was prolonged QTC. Patient wasrequire admission given his elevated BNP, worsening ascites/liver function as well as pneumonia. Patient was will require careful fluid balancing given that he likely already has some element of mildvolume overload given his elevation of the BNP. Given this patient was admitted to [facility] for further management. IMPRESSION AND DISPOSITION Clinical Impression Diagnosis Comment Pneumonia of right lower lobe due to infectious organism [J18.9] Hypervolemia, unspecified hypervolemia type [E87.70] HFrEF (heart failure with reduced ejection fraction) ([facility]) [I50.20] Acute kidney injury superimposed on CKD ([facility]) [N17.9, N18.9] Disposition: Admitted to Floor: Family Medicine Service. Report called to Dr. Hutchinson, [facility], 822pm(09/30/242022) The patient has received a medical screening examination and within reasonable clinical confidence the patient was stabilized within the capabilities of the emergency department and requires admission / observation. Counseling: Spoke with the patient and discussed today s findings, in addition to providing specific details for the plan of care and expected course. They were given the opportunity to ask questions. Vargas Berg MD Emergency Medicine SCRIBE ATTESTATION 10/01/2024, 1:53 AM. This note is prepared by Anshu Dominguez acting as Scribe for Vargas Fisher. All medical record entries made by the Scribe were at my direction and personally dictated by me. Tavo reviewed the record and confirm that the note above accurately reflects all work, treatment, procedures, and medical decision making performed by me. Vargas Fisher Note has been documented by Anshu Dominguez on 09/30/2024 documented in this [id number] Emergency department Note* Cipriano Sun RN - 09/30/2024 6:27 PM EDT notified of critical lactate value of 4.3 read back critical results. No New orders [id number] Emergency department Note* Soraida Nixon RN - 09/30/2024 5:[address] BERG NOTIFIED OF CRITICAL LACTATE LEVEL OF 5.0. ORDERS FOLLOWED. [employer] Work Phone: [phone] Physician Emergency department Note* Vargas Berg MD - 09/30/2024 4:08 PM EDT Images from the original note were not included. EMERGENCY DEPARTMENT - VISIT NOTE HISTORY OF PRESENT ILLNESS Chief Complaint Patient presents with Shortness of breath Pt c/o right sided rib pain, sob. Diarrhea x1 week, vomiting yesterday with cough and congestion. HIPAA: Verbal permission granted from patient to discuss case, including protected health information, in front of family / friends in room at the time of the evaluation. Genetics Physician: not needed - patient preferred language is Moroccan. Carlo Medina is a 44 year old male with past medical history significant for history of CKD, CHF (EF is 18%), HTN, DVT on Eliquis, and Cirrhosis. He is presenting to the emergency department for pain in his R rib as well as SOB. Other symptoms include intermittent abdominal pain, coughing, vomiting, and diarrhea. Patient explains that the vomiting and dire have been present all week but the pain in the R rib is new. He denies any recent falls or injuries and says he will feel short of breath even when talking or sitting in bed. Patient says he will consume food and within an hour he will have a vomiting episode and will lose weight. He weighed himself today and reports that he was base line. Denies productive cough and nausea and says the pain is worse upon taking deep breaths. He is currently taking Eliquis. REVIEW OF SYSTEMS Review of Systems PAST HISTORY Pertinent Past History: Past Medical History: Diagnosis Date Chronic systolic heart failure (HCC) DVT (deep venous thrombosis) ([facility]) Hypercholesteremia Iron deficiency anemia Stage 2 chronic kidney disease Vitamin D deficiency Patient Active Problem List: CKD (chronic kidney disease) [N18.9] Essential hypertension [I10] Elevated liver enzymes [R74.8] Acute deep vein thrombosis (DVT) of lower extremity ([facility]) [I82.409] HFrEF (heart failure with reduced ejection fraction) ([facility]) [I50.20] History of left bundle branch block (LBBB) [Z86.79] Acute kidney injury superimposed on CKD ([facility]) [N17.9, N18.9] Pulmonary vascular congestion [R09.89] SOB (shortness of breath) [R06.02] Cardiogenic shock ([facility]) [R57.0] Pneumonia of right lower lobe due to infectious organism [J18.9] Pertinent Social History: Social History Tobacco Use Smoking status: Never Smokeless tobacco: Never PHYSICAL EXAM Physical Exam Vitals and nursing note reviewed. Constitutional: General: He is not in acute distress. Appearance: Normal appearance. Eyes: Extraocular Movements: Extraocular movements intact. Pupils: Pupils are equal, round, and reactive to light. Cardiovascular: Rate and Rhythm: Normal rate and regular rhythm. Pulses: Normal pulses. Heart sounds: Normal heart sounds. Comments: 1+ radial and DP pulses bilaterally, 1+pitting edema of the bilateral ankles. Pulmonary: Comments: Speaking in full sentences, satting in the high 90s on room air. Crackles in the right lower lung Abdominal: Palpations: Abdomen is soft. Comments: Mild diffuse abdominal pain without rebound or guarding. Musculoskeletal: Comments: Tenderness to palpation over the right inferior lateral aspect of the ribcage, no overlying erythema or crepitus Skin: General: Skin is warm and dry. Neurological: General: No focal deficit present. Mental Status: He is alert and oriented to person, place, and time. MEDICAL DECISION MAKING and ED COURSE Nursing triage and assessment notes reviewed and incorporated. On initial evaluation patient was speaking in full sentences, satting in the high 90s on room air. Endorsing right lower rib pain. Patient noted to have crackles in the right lower lung auscultation as well as mild generalized diffuse abdominal pain. Mild edema of the bilateral ankles the patient was states this is no worse than normal. Patient does have 1+ radial and DP pulses bilaterally. EKG demonstrates sinus tachycardia without acute ST segment changes, initial mild elevation of troponin to 38, downtrending to 32 on repeat, low concern for acute coronary syndrome, possible mild demand ischemia in the setting of tachycardia/fullness versus elevation from SCHUYLER. Patient does have elevationof creatinine to 2.64 up from 1.8. No acute leukocytosis or anemia. Hepatic function notable for increase in bilirubin to 5.7 from 2.2. VBG without evidence of acidosis. BNP noted to be elevated to 6400 and patient was initial lactate was 5. Given the patient was had vomiting and diarrhea I have concern that his SCHUYLER maybe prerenal from mild volume depletion however given his significant heart failure with decreased ejection fraction patient was initially only given 500 cc of fluid due to concern for overloading him. After initial 500 cc patient was tachycardia had improved and he had mild improvement of his blood pressure. Patient was subsequently given 2 more 500 cc boluses, patient was downtrending of lactate from 5-4.3 8-3.8. CT scan of the abdomen pelvis did not demonstrate evidence of acute intra-abdominal process though there was an increase in ascites from previous scans. Given the patient has been having vomiting/diarrhea for over a week I have lower concern for SBP though there was not a clear pocket that was able to be tapped. CT scan also demonstrated a right lower lobe pneumonia which corresponds with the patient was crackles/chest pain. Patient was given cefepime and doxycycline for antibiotic coverage, doxycycline chosen given patient was prolonged QTC. Patient wasrequire admission given his elevated BNP, worsening ascites/liver function as well as pneumonia. Patient was will require careful fluid balancing given that he likely already has some element of mildvolume overload given his elevation of the BNP. Given this patient was admitted to family medicine for further management. IMPRESSION AND DISPOSITION Clinical Impression Diagnosis Comment Pneumonia of right lower lobe due to infectious organism [J18.9] Hypervolemia, unspecified hypervolemia type [E87.70] HFrEF (heart failure with reduced ejection fraction) ([facility]) [I50.20] Acute kidney injury superimposed on CKD ([facility]) [N17.9, N18.9] Disposition: Admitted to Floor: Family Medicine Service. Report called to Dr. Hutchinson, [facility], 822pm(09/30/242022) The patient has received a medical screening examination and within reasonable clinical confidence the patient was stabilized within the capabilities of the emergency department and requires admission / observation. Counseling: Spoke with the patient and discussed today s findings, in addition to providing specific details for the plan of care and expected course. They were given the opportunity to ask questions. Vargas Berg MD Emergency Medicine SCRIBE ATTESTATION 10/01/2024, 1:53 AM. This note is prepared by Anshu Dominguez acting as Scribe for Vargas Fisher. All medical record entries made by the Scribe were at my direction and personally dictated by me. Tavo reviewed the record and confirm that the note above accurately reflects all work, treatment, procedures, and medical decision making performed by me. Vargas Fisher Note has been documented by Anshu Dominguez on 09/30/2024 [id number] NotePatient Education Material Cardiovascular Chest Pain: Care Instructions Your Care Instructions There are many things that can cause chest pain. Some are not serious and will get better on their own in a few days. But some kinds of chest pain need more testing and treatment. Your doctor may have recommended a follow-up visit in the next 8 to 12 hours. If you are not getting better, you may need more tests or treatment. Even though your doctor has released you, you still need to watch for any problems. The doctor carefully checked you, but sometimes problems can develop later. If you have new symptoms or if your symptoms do not get better, get medical care right away. If you have worse or different chest pain or pressure that lasts more than 5 minutes or you passed out (lost consciousness), call 911 or seek other emergency help right away. A medical visit is only one step in your treatment. Even if you feel better, you still need to do what your doctor recommends, such as going to all suggested follow-up appointments and taking medicines exactly as directed. This will help you recover and help prevent future problems. How can you care for yourself at home? ? Rest until you feel better. ? Take your medicine exactly as prescribed. Call your doctor if you think you are having a problem with your medicine. ? Do not drive after taking a prescription pain medicine. When should you call for help? Call 911 if: ? You passed out (lost consciousness). ? You have severe difficulty breathing. ? You have symptoms of a heart attack. These may include: ? Chest pain or pressure, or a strange feeling in your chest. ? Sweating. ? Shortness of breath. ? Nausea or vomiting. ? Pain, pressure, or a strange feeling in your back, neck, jaw, or upper belly or in one or both shoulders or arms. ? Lightheadedness or sudden weakness. ? A fast or irregular heartbeat. After you call 911, the inserting press operator may tell you to chew 1 adult-strength or 2 to 4 low-dose aspirin. Wait for an ambulance. Do not try to drive yourself. Call your doctor today if: ? You have any trouble breathing. ? Your chest pain gets worse. ? You are dizzy or lightheaded, or you feel like you may faint. ? You are not getting better as expected. ? You are having new or different chest pain. Where can you learn more? Go to https://www.3sun.net/patientEd Enter A120 in the search box to learn more about Chest Pain: Care Instructions. Current as of: September 05, 2021 Content Version: 13.3 ? [employer]. Care instructions adapted under license by your healthcare professional. If you have questions about a medical condition or this instruction, always ask your healthcare professional. [employer] disclaims any warranty or liability for your use of this information. Gastrointestinal Nausea and Vomiting: Care Instructions Overview When you are nauseated, you may feel weak and sweaty and notice a lot of saliva in your mouth. Nausea often leads to vomiting. Most of the time you do not need to worry about nausea and vomiting, butthey can be signs of other illnesses. Two common causes of nausea and vomiting are a stomach infection and food poisoning. Nausea and vomiting from a viral stomach infection will usually start to improve within 24 hours. Nausea and vomiting from food poisoning may last from 12 to 48 hours. The doctor has checked you carefully, but problems can develop later. If you notice any problems ornew symptoms, get medical treatment right away. Follow-up care is a reardon part of your treatment and safety. Be sure to make and go to all appointments, and call your doctor if you are having problems. It's also a good idea to know your test resultsand keep a list of the medicines you take. How can you care for yourself at home? ? To prevent dehydration, drink plenty of fluids. Choose water and other clear liquids until you feel better. If you have kidney, heart, or liver disease and have to limit fluids, talk with your doctor before you increase the amount of fluids you drink. ? Rest in bed until you feel better. ? When you are able to eat, try clear soups, mild foods, and liquids until all symptoms are gone for 12 to 48 hours. Other good choices include dry toast, crackers, cooked cereal, and gelatin dessert, such as Jell-O. When should you call for help? Call 911 anytime you think you may need emergency care. For example, call if: ? You passed out (lost consciousness). Call your doctor now or seek immediate medical care if: ? You have symptoms of dehydration, such as: ? Dry eyes and a dry mouth. ? Passing only a little urine. ? Feeling thirstier than usual. ? You have new or worsening belly pain. ? You have a new or higher fever. ? You vomit blood or what looks like coffee grounds. Watch closely for changes in your health, and be sure to contact your doctor if: ? You have ongoing nausea and vomiting. ? Your vomiting is (more content not included)...[facility] 09-19-2024 NoteEducation Pharmacy - Anticoagulation Entered On: 09/19/2024 10:13 EDT Performed On: 09/19/2024 10:13 EDT by Shabana Fleming RPh Education Pharmacy Anticoagulation Barriers to Learning : None evident TeachBack Methodology : Printed Material Anticoagulant on Discharge : Apixaban Teach Back Notes : Home Eliquis continued on admission Shabana Fleming RPh - 09/19/2024 10:13 [facility] Comment: Request for pharmacy education by discern rule for patient ordered [id number] NoteImmunization Screening Entered On: 09/18/2024 11:33 EDT Performed On: 09/18/2024 11:33 EDT by Nicole Manning RN Immunization Screening Immunizations Current : Unknown Last Tetanus : Unknown Influenza Vaccine : Yes [place] COVID-19 Vaccine : No Nicole Manning RN - 09/18/2024 11:33 [facility]:Order Comment: Order entered secondary to inpatient admission.Result Comment: [id number] NoteHNO ID: [id number] Author: PAMELA CUETO LPN Service: ? Author Type: LICENSED NURSE Type: Progress Notes Filed: 09/17/2024 18:40 Note Text: [facility], [facility] Emergency Response Form. NOT TO BE USED AT [facility] Complete this report when the Emergency Medical Response is activated (911 calls/EmergencyTransport to the ED) or when a Code Sheet is utilized in the care of a patient (i.e., ASC) Date of the Event: (Must provide Value) Time of the Event:5:43pm (Must provide Value) Was emergency response activated? (Local EMS/Emergency Department) YES (Must provide Value) Location of the Incident:[facility] ([facility]) (Must provide Value) Reason/Chief Complaint for Emergency Call (Check all that apply): Chest Pain/Pressure (Must provide Value) CPR Initiated-Chest Compressions and/or Rescue Breathing Provided: NO (Must provide value) Facility AED Used-Automatic External Defibrillator: NO (Must provide value) EMS AED Used-Automatic External Defibrillator: NO (Must provide value) Prior to EMS arrival, was any treatment administered? NO Describe treatment Patient Disposition: Alert and orientated Transferred to Hospital ED Gas Load Dispatcher information: Name of Provider- Pamela Cueto (Must provide value) 0[facility]03-21-2025 History of Present illness Narrative* Pamela Cueto LPN - 09/17/2024 6:17 PM EDT [facility], [facility] Emergency Response Form. NOT TO BE USED AT [facility] Complete this report when the Emergency Medical Response is activated (911 calls/EmergencyTransportto the ED) or when a Code Sheet is utilized in the care of a patient (i.e., ASC) Date of the Event: (Must provide Value) Time of the Event:5:43pm (Must provide Value) Was emergency response activated? (Local EMS/Emergency Department) YES (Must provide Value) Location of the Incident:[facility] ([facility]) (Must provide Value) Reason/Chief Complaint for Emergency Call (Check all that apply): Chest Pain/Pressure (Must provide Value) CPR Initiated-Chest Compressions and/or Rescue Breathing Provided: NO (Must provide value) Facility AED Used-Automatic External Defibrillator: NO (Must provide value) EMS AED Used-Automatic External Defibrillator: NO (Must provide value) Prior to EMS arrival, was any treatment administered? NO Describe treatment Patient Disposition: Alert and orientated Transferred to Hospital ED Gas Load Dispatcher information: Name of Provider- Pamela Cueto (Must provide value) 0 * Surekhaaleena King Muir, DO - 09/17/2024 5:50 PM EDT [facility] Subjective Carlo Medina is a 44 year old male. Patient presents with: Shortness of Breath: Heart burn, nausea, vomiting, diarrhea, coughing Chest Pain Patient presents with chest pain, shortness of breath, nausea/vomiting, diarrhea, cough. Cough, chest pain, shortness of breath times ~4-5 days. N/v/d started ~1 day ago. He cannot keep anything downtoday. No fevers/chills. Hx of CHF, cardiac event that appears to be ND, though Patient denies ND. Recently was hospitalized with kidney failure at [facility], [place] and discharged ~5 days ago. Has had multiple admissions this past (10) in the past ~3-4 months. No dizziness/lightheadedness. No past medical history on file. Current Outpatient Medications Medication Sig apixaban (ELIQUIS) 5 mg tab(s) Take 5 mg by mouth. bumetanide (BUMEX) 1 mg tablet Take 2 mg by mouth. hydrALAZINE (APRESOLINE) 100 mg tablet Take 1 tablet by mouth three times a day. isosorbide dinitrate (ISORDIL) 20 mg tablet Take 20 mg by mouth three times a day. losartan (COZAAR) 50 mg tablet Take 50 mg by mouth once daily. No current facility-administered medications for this visit. ALLERGIES Allergen Reactions Sacubitril-Valsartan Other: See Comments, Vomiting Review of Systems Constitutional: Negative for chills and fever. Respiratory: Positive for cough and shortness of breath. Negative for wheezing. Cardiovascular: Positive for chest pain. Gastrointestinal: Positive for diarrhea, nausea and vomiting. Negative for abdominal pain. Neurological: Negative for dizziness. Objective BP 108/85 Pulse 109 Resp 16 SpO2 99% (Room Air) Physical Exam Vitals and nursing note reviewed. Constitutional: General: He is not in acute distress. Appearance: He is not toxic-appearing or diaphoretic. Comments: Appears a bit ill, but Non-toxic. HENT: Head: Normocephalic and atraumatic. Mouth/Throat: Comments: MM appears somewhat dry. Eyes: General: No scleral icterus. Right eye: No discharge. Left eye: No discharge. Extraocular Movements: Extraocular movements intact. Conjunctiva/sclera: Conjunctivae normal. Pupils: Pupils are equal, round, and reactive to light. Neck: Comments: No meningismus. Cardiovascular: Rate and Rhythm: Regular rhythm. Tachycardia present. Pulmonary: Effort: Pulmonary effort is normal. No respiratory distress. Breath sounds: Normal breath sounds. No stridor. No wheezing, rhonchi or rales. Musculoskeletal: Cervical back: Normal range of motion. Skin: General: Skin is warm and dry. Coloration: Skin is not jaundiced or pale. Neurological: Mental Status: He is alert. {ASSESSMENT/PLAN: 1. Chest pain, unspecified type - ICD9: 786.50, ICD10: R07.9 (primary diagnosis) Given hx, symptoms, EMS called. [facility] EMS arrived within minutes to take Patient to ED. Patient appears stable upon leaving [facility] for ED via EMS. - ECG COMPLETE - Cancelled. We attempted to obtain an EKG here, but EMS arrived, and Patient was taken by squad to ED. 2. Nausea vomiting and diarrhea - ICD9: 787.91, 787.01, ICD10: R11.2, R19.7 King Medina DO History and Record Review External record(s) reviewed: prior inpatient record. Findings from review of inpatient records: Multiple admissions for CHF, Kidney failure, ND recently Differential Diagnoses - Concern for cardiac, dehydration, kidney issues is more likely for the following reason(s): suggested by H&P Contributing Factors Chronic conditions affecting care: CHF, ND, Kidney Disease Chronic conditions addressed by: CHF, ND, Kidney disease - co-morbidities/risk factors. Disposition The patient was other (comment) (ED via EMS). [facility] NoteHNO ID: [id number] Author: KING MEDINA DO Service: ? Author Type: Physician Type: Progress Notes Filed: 09/17/2024 18:40 Note Text: [facility] Subjective Carlo Medina is a 44 year old male. Patient presents with: Shortness of Breath: Heart burn, nausea, vomiting, diarrhea, coughing Chest Pain Patient presents with chest pain, shortness of breath, nausea/vomiting, diarrhea, cough. Cough, chest pain, shortness of breath times ~4-5 days. N/v/d started ~1 day ago. He cannot keep anything down today. No fevers/chills. Hx of CHF, cardiac event that appears to be ND, though Patient denies ND. Recently was hospitalized with kidney failure at [facility], [place] and discharged ~5 days ago. Has had multiple admissions this past (10) in the past ~3-4 months. No dizziness/lightheadedness. No past medical history on file. Current Outpatient Medications Medication Sig apixaban (ELIQUIS) 5 mg tab(s) Take 5 mg by mouth. bumetanide (BUMEX) 1 mg tablet Take 2 mg by mouth. hydrALAZINE (APRESOLINE) 100 mg tablet Take 1 tablet by mouth three times a day. isosorbide dinitrate (ISORDIL) 20 mg tablet Take 20 mg by mouth three times a day. losartan (COZAAR) 50 mg tablet Take 50 mg by mouth once daily. No current facility-administered medications for this visit. ALLERGIES Allergen Reactions Sacubitril-Valsartan Other: See Comments, Vomiting Review of Systems Constitutional: Negative for chills and fever. Respiratory: Positive for cough and shortness of breath. Negative for wheezing. Cardiovascular: Positive for chest pain. Gastrointestinal: Positive for diarrhea, nausea and vomiting. Negative for abdominal pain. Neurological: Negative for dizziness. Objective BP 108/85 Pulse 109 Resp 16 SpO2 99% (Room Air) Physical Exam Vitals and nursing note reviewed. Constitutional: General: He is not in acute distress. Appearance: He is not toxic-appearing or diaphoretic. Comments: Appears a bit ill, but Non-toxic. HENT: Head: Normocephalic and atraumatic. Mouth/Throat: Comments: MM appears somewhat dry. Eyes: General: No scleral icterus. Right eye: No discharge. Left eye: No discharge. Extraocular Movements: Extraocular movements intact. Conjunctiva/sclera: Conjunctivae normal. Pupils: Pupils are equal, round, and reactive to light. Neck: Comments: No meningismus. Cardiovascular: Rate and Rhythm: Regular rhythm. Tachycardia present. Pulmonary: Effort: Pulmonary effort is normal. No respiratory distress. Breath sounds: Normal breath sounds. No stridor. No wheezing, rhonchi or rales. Musculoskeletal: Cervical back: Normal range of motion. Skin: General: Skin is warm and dry. Coloration: Skin is not jaundiced or pale. Neurological: Mental Status: He is alert. {ASSESSMENT/PLAN: 1. Chest pain, unspecified type - ICD9: 786.50, ICD10: R07.9 (primary diagnosis) Given hx, symptoms, EMS called. [facility] EMS arrived within minutes to take Patient to ED. Patient appears stable upon leaving [facility] for ED via EMS. - ECG COMPLETE - Cancelled. We attempted to obtain an EKG here, but EMS arrived, and Patient was taken by squad to ED. 2. Nausea vomiting and diarrhea - ICD9: 787.91, 787.01, ICD10: R11.2, R19.7 King Medina DO History and Record Review External record(s) reviewed: prior inpatient record. Findings from review of inpatient records: Multiple admissions for CHF, Kidney failure, ND recently Differential Diagnoses - Concern for cardiac, dehydration, kidney issues is more likely for the following reason(s): suggested by HANDP Contributing Factors Chronic conditions affecting care: CHF, ND, Kidney Disease Chronic conditions addressed by: CHF, ND, Kidney disease - co-morbidities/risk factors. Disposition The patient was other (comment) (ED via EMS).[facility] 09-11-2024 NoteThe [facility]03-11-2025 NoteConsults Pt was scheduled for diagnostic paracentesis this afternoon. I was notified by staff that patient refused to have procedure done. Christopher Barakat DO CT/US Procedure ServiceThe [facility]03-05-2025 NotePT A AND OX4. TRANSPORTED TO [facility] WITH [employer] (Inspect Manager) AMBULANCE. PT AWARE OF ADMIT AND PLAN OF CARE.[facility]02-26-2025 NoteSee heart failure outreach telephone encounter.[facility]02-26-2025 Telephone encounter Note* Telephone Encounter - Manuela White RPh - 08/25/2024 10:27 AM EST See heart failure outreach telephone encounter. [facility] Work Phone: [phone] 981-600102-26-2025 Miscellaneous Notes* Telephone Encounter - Manuela White RPh - 08/25/2024 10:27 AM EST See heart failure outreach telephone encounter. * Telephone Encounter - Ally Machado RN - 08/23/2024 8:41 AM EST 08/09/24-08/20/24 [facility] Admission, Dr Villalobos consult Complicated by refusal to accept IV electrolyte infusions He also refused metro transfer then a bed was avail Again declined life vest 08/22/24 (9:14pm)- [facility] ER- left AMA 08/23/24 (5:25am)- [facility] ER- left AMA [facility]. Left a brief VM. * Telephone Encounter - Manuela White RPh - 08/23/2024 8:11 AM EST Discharged with heart failure. Needs 72 hour post discharge phone call. 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 [facility] believed pt to be in low output HF during most recent hospitalization, but pt was refusing any invasive testing as well as intermittently refusing labs and medications. Noted pt in the emergency dept for the third time since hospital discharge on 08/20 (left AMA from [facility] and [facility]). This AM, presented to [facility] ED with N/V/abd pain- renal function and liver enzymes elevated. Per ED note, pt refused assessment from provider required for transfer to [facility], [place] and insisted on leaving. Discussed case with Rayna Townsend, [facility] DOUGHNUT MACHINE OPERATOR HELPER. Call to pt. Pt answered and hung up right away twice, did answer on the third attempt. Asked pt about current symptoms, he stated you know, the same old thing- my heart and kidneys are bad. Discussed that current symptoms and lab work (n/v/abd pain, SCHUYLER, hepatic congestion, etc) could be related to low output HF/failure of oral therapy. Pt expressed frustration that [facility] will not admit him anymore (insurance is out of network) and that all you guys wanted to do was stick something in my neck (RHC) and then you said I might not need that done anymore. Pt did eventually respond to diuresis and oral GDMT during hospitalization. Again attempted to discuss current presentation and pt stated I do not want to talk about this anymore, bye. Pt then hung up the phone. Next [facility] follow up scheduled with Dr. Astudillo on 09/02 at 11:30AM. 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 [facility] believed pt to be in low output HF during most recent hospitalization, but pt was refusing any invasive testing as well as intermittently refusing labs and medications. Noted pt in the emergency dept for the third time since hospital discharge on 08/20 (left AMA from [facility] and [facility]). This AM, presented to [facility] ED with N/V/abd pain- renal function and liver enzymes elevated. Per ED note, pt refused assessment from provider required for transfer to [facility] [place] and insisted on leaving. Discussed case with Rayna Townsend, [facility] DOUGHNUT MACHINE OPERATOR HELPER. Call to pt. Pt answered and hung up right away twice, did answer on the third attempt. Asked pt about current symptoms, he stated you know, the same old thing- my heart and kidneys are bad. Discussed that current symptoms and lab work (n/v/abd pain, SCHUYLER, hepatic congestion, etc) could be related to low output HF/failure of oral therapy. Pt expressed frustration that [facility] will not admit him anymore (insurance is out of network) and that all you guys wanted to do was stick something in my neck (RHC) and then you said I might not need that done anymore. Pt did eventually respond to diuresis and oral GDMT during hospitalization. Again attempted to discuss current presentation and pt stated I do not want to talk about this anymore, bye. Pt then hung up the phone. Next [facility] follow up scheduled with Dr. Astudillo on 09/02 at 11:30AM. documented in this [facility]02-26-2025 Emergency department Note* Obdulia Sanchez RN - 08/25/2024 2:35 AM EST Patient refusing covid/flu swab stating I would know if I had that and I haven't gotten it since it came out. Dr. Schaffer notified and aware. [id number] Emergency department Note* Obdulia Sanchez RN - 08/25/2024 2:35 AM EST Patient refusing covid/flu swab stating I would know if I had that and I haven't gotten it since it came out. Dr. Schaffer notified and aware. * Vargas Beach DO - 08/25/2024 1:11 AM EST Emergency Department Encounter Location: [facility] ED Patient: Carlo Medina : 1980 Date of evaluation: 08/25/2024 ED Provider: Vargas Beach DO Time received sign-out: 700 aCrlo Medina was checked out to me by Dr. Schaffer. Please see his/her initial documentation for details of the patient's initial ED presentation, physical exam and completed studies. In brief, Carlo Medina is a 44 y.o. adult that presented to the emergency department with nausea vomiting lower abdominal discomfort shortness of breath, concerns that his kidney function is declining. Signed out to me pending labs clinical improvement and admission. I have reviewed and interpreted all of the currently available lab results and diagnostics from this visit: Results for orders placed or performed during the hospital encounter of 08/25/24 ECG 12 lead Collection Time: 08/25/24 2:29 AM Result Value Ref Range Heart Rate 119 bpm QRSD Interval 156 ms QT Interval 401 ms QTC Interval 565 ms P [place] 47 degrees QRS [place] -86 degrees T Wave [place] 69 degrees IN Interval 127 ms CBC auto differential Collection Time: 08/25/24 4:04 AM Result Value Ref Range Auto WBC 8.2 3.6 - 10.7 10*3/uL RBC 4.10 (L) 4.40 - 5.90 10*6/uL Hemoglobin 13.6 13.0 - 18.0 g/dL Hematocrit 41.3 40.0 - 52.0 % MCV 100.7 (H) 77.0 - 99.0 fL MCH 33.2 26.0 - 34.0 pg MCHC 32.9 30.5 - 36.0 % RDW 12.6 11.5 - 15.0 % Platelets 227 140 - 440 10*3/uL MPV 9.5 9.0 - 12.7 fL nRBC 0.0 0.0 - 2.0 /100 WBCs Neutrophils Relative 61.6 38.0 - 82.0 % Lymphocytes Relative 29.7 15.0 - 45.0 % Monocytes Relative 8.2 5.0 - 13.0 % Eosinophils Relative 0.1 0.0 - 6.0 % Basophils Relative 0.2 0.0 - 2.0 % Immature Grans % 0.2 0.0 - 2.0 % Neutrophils Absolute 5.1 1.8 - 7.5 10*3/uL Lymphocytes Absolute 2.4 1.0 - 4.3 10*3/uL Monocytes Absolute 0.7 0.0 - 0.9 10*3/uL Eosinophils Absolute 0.0 0.0 - 0.5 10*3/uL Basophils Absolute 0.0 0.0 - 0.2 10*3/uL Immature Grans Absolute 0.0 <0.1 10*3/uL Serial Troponin, High Sensitivity Collection Time: 08/25/24 4:04 AM Result Value Ref Range Troponin HS Serial Baseline 28 <=35 ng/L NT PRO BNP Collection Time: 08/25/24 4:04 AM Result Value Ref Range NT PRO BNP 21,254 (H) <125 pg/mL Comprehensive metabolic panel Collection Time: 08/25/24 4:04 AM Result Value Ref Range SODIUM 138 136 - 145 mmol/L POTASSIUM 3.9 3.5 - 5.1 mmol/L CHLORIDE 102 98 - 107 mmol/L CARBON DIOXIDE 22 22 - 29 mmol/L ANION GAP 14 (H) 3 - 13 mmol/L UREA NITROGEN 51 (H) 8 - 21 mg/dL CREATININE 2.06 (H) 0.72 - 1.25 mg/dL GLUCOSE 113 (H) 74 - 100 mg/dL CALCIUM 9.3 8.4 - 10.2 mg/dL AST (SGOT) 75 (H) <34 U/L ALT 110 (H) <40 U/L ALKALINE PHOSPHATASE 161 (H) 40 - 150 U/L ALBUMIN 3.4 (L) 3.5 - 5.0 g/dL BILIRUBIN, TOTAL 3.0 (H) <1.2 mg/dL TOTAL PROTEIN 6.6 6.4 - 8.3 g/dL eGFR 39.5 (L) >60.0 mL/min/1.73m*2 Troponin, High Sensitivity, Serial, Second Test Collection Time: 08/25/24 6:00 AM Result Value Ref Range 2h Troponin HS (Serial 2nd Troponin) 28 <=35 ng/L XR chest 1 view Final Result Moderate cardiomegaly, unchanged. No acute pulmonary abnormality. Report Dictated on Electronically Signed By: Eugene Dani, DO Electronically Signed Date/Time: 08/25/2024 3:12 AM EST Final ED Course and MDM: Carlo Medina is a 44 y.o. whose care was signed out to me by the outgoing provider. In brief, patient with nausea vomiting lower abdominal pain and shortness of breath have a history of CHF, has refused LifeVest and ICD placement in the past, recently admitted for extended period time this month.Was found that his insurance was out of network, plan was to transfer him to [facility] [place] during admissionhowever he refused transfer and signed out AMA. Cardiology recommended [place] guided therapy for his heart failure however patient also refused that. Have spent having nausea vomiting shortness of breath lower abdominal pain for the past day. Concerns kidney function was worsening. Did have a CT scan 2 days ago which was read as no acute process. Today nausea improved with Zofran. Found to have a BNP of 21,000 which has doubled on lab work performed 13 days ago. Troponins 28 x 2. Creatinine is 2.06 slightly elevated from baseline. Has AST ALT and T. bili elevation as well. Slight anion gap of 14. No leukocytosis. Does appear euvolemic currently. Patient spoke with Dr. Schaffer at shift change that he was wanting to be admitted which we do feel is pertinent at this time giving his lab derangements and symptoms, plan was to transfer him to [facility] [place] where his insurance is excepted. I introduced myself at 7 AM to evaluate the patient. Patient refused my evaluation, states I do not know why you are evaluating me if I cannot even be admitted here. I told him that I will be the one speaking with the transfer center with [facility] [place] and that I needed to perform a physical examinationon him to discuss with the providers at [facility] [place] about the transfer, patient refused my evaluation, states someone come pulled this IV, I am leaving. Patient understands that leaving with his lab abnormalities could lead to permanent disability or , using shared decision making patient will be discharged home with recommendation for close outpatient follow-up. Medications ondansetron (Zofran) injection 4 mg (4 mg IntraVENous Given 08/25/24 0411) Final Impression 1. Elevated serum creatinine 2. Elevated brain natriuretic peptide (BNP) level DISPOSITION Discharge 08/25/2024 07:31:22 AM (Please note that portions of this note may have been completed with a voice recognition program. Efforts were made to edit the dictations but occasionally words are mis-transcribed.) Vargas Beach DO [employer] Vargas Beach DO 08/25/24 0758 documented in this [facility]02-26-2025 Physician Emergency department Note* Vargas Beach DO - 08/25/2024 1:11 AM EST Emergency Department Encounter Location: [facility] ED Patient: Carlo Medina : 1980 Date of evaluation: 08/25/2024 ED Provider: Vargas Beach DO Time received sign-out: 700 Carlo Medina was checked out to me by Dr. Schaffer. Please see his/her initial documentation for details of the patient's initial ED presentation, physical exam and completed studies. In brief, Carlo Medina is a 44 y.o. adult that presented to the emergency department with nausea vomiting lower abdominal discomfort shortness of breath, concerns that his kidney function is declining. Signed out to me pending labs clinical improvement and admission. I have reviewed and interpreted all of the currently available lab results and diagnostics from this visit: Results for orders placed or performed during the hospital encounter of 08/25/24 ECG 12 lead Collection Time: 08/25/24 2:29 AM Result Value Ref Range Heart Rate 119 bpm QRSD Interval 156 ms QT Interval 401 ms QTC Interval 565 ms P [place] 47 degrees QRS [place] -86 degrees T Wave [place] 69 degrees IN Interval 127 ms CBC auto differential Collection Time: 08/25/24 4:04 AM Result Value Ref Range Auto WBC 8.2 3.6 - 10.7 10*3/uL RBC 4.10 (L) 4.40 - 5.90 10*6/uL Hemoglobin 13.6 13.0 - 18.0 g/dL Hematocrit 41.3 40.0 - 52.0 % MCV 100.7 (H) 77.0 - 99.0 fL MCH 33.2 26.0 - 34.0 pg MCHC 32.9 30.5 - 36.0 % RDW 12.6 11.5 - 15.0 % Platelets 227 140 - 440 10*3/uL MPV 9.5 9.0 - 12.7 fL nRBC 0.0 0.0 - 2.0 /100 WBCs Neutrophils Relative 61.6 38.0 - 82.0 % Lymphocytes Relative 29.7 15.0 - 45.0 % Monocytes Relative 8.2 5.0 - 13.0 % Eosinophils Relative 0.1 0.0 - 6.0 % Basophils Relative 0.2 0.0 - 2.0 % Immature Grans % 0.2 0.0 - 2.0 % Neutrophils Absolute 5.1 1.8 - 7.5 10*3/uL Lymphocytes Absolute 2.4 1.0 - 4.3 10*3/uL Monocytes Absolute 0.7 0.0 - 0.9 10*3/uL Eosinophils Absolute 0.0 0.0 - 0.5 10*3/uL Basophils Absolute 0.0 0.0 - 0.2 10*3/uL Immature Grans Absolute 0.0 <0.1 10*3/uL Serial Troponin, High Sensitivity Collection Time: 08/25/24 4:04 AM Result Value Ref Range Troponin HS Serial Baseline 28 <=35 ng/L NT PRO BNP Collection Time: 08/25/24 4:04 AM Result Value Ref Range NT PRO BNP 21,254 (H) <125 pg/mL Comprehensive metabolic panel Collection Time: 08/25/24 4:04 AM Result Value Ref Range SODIUM 138 136 - 145 mmol/L POTASSIUM 3.9 3.5 - 5.1 mmol/L CHLORIDE 102 98 - 107 mmol/L CARBON DIOXIDE 22 22 - 29 mmol/L ANION GAP 14 (H) 3 - 13 mmol/L UREA NITROGEN 51 (H) 8 - 21 mg/dL CREATININE 2.06 (H) 0.72 - 1.25 mg/dL GLUCOSE 113 (H) 74 - 100 mg/dL CALCIUM 9.3 8.4 - 10.2 mg/dL AST (SGOT) 75 (H) <34 U/L ALT 110 (H) <40 U/L ALKALINE PHOSPHATASE 161 (H) 40 - 150 U/L ALBUMIN 3.4 (L) 3.5 - 5.0 g/dL BILIRUBIN, TOTAL 3.0 (H) <1.2 mg/dL TOTAL PROTEIN 6.6 6.4 - 8.3 g/dL eGFR 39.5 (L) >60.0 mL/min/1.73m*2 Troponin, High Sensitivity, Serial, Second Test Collection Time: 08/25/24 6:00 AM Result Value Ref Range 2h Troponin HS (Serial 2nd Troponin) 28 <=35 ng/L XR chest 1 view Final Result Moderate cardiomegaly, unchanged. No acute pulmonary abnormality. Report Dictated on Electronically Signed By: Eugene Louise DO Electronically Signed Date/Time: 08/25/2024 3:12 AM EST Final ED Course and MDM: Carlo Medina is a 44 y.o. whose care was signed out to me by the outgoing provider. In brief, patient with nausea vomiting lower abdominal pain and shortness of breath have a history of CHF, has refused LifeVest and ICD placement in the past, recently admitted for extended period time this month.Was found that his insurance was out of network, plan was to transfer him to [facility] [place] during admissionhowever he refused transfer and signed out AMA. Cardiology recommended [place] guided therapy for his heart failure however patient also refused that. Have spent having nausea vomiting shortness of breath lower abdominal pain for the past day. Concerns kidney function was worsening. Did have a CT scan 2 days ago which was read as no acute process. Today nausea improved with Zofran. Found to have a BNP of 21,000 which has doubled on lab work performed 13 days ago. Troponins 28 x 2. Creatinine is 2.06 slightly elevated from baseline. Has AST ALT and T. bili elevation as well. Slight anion gap of 14. No leukocytosis. Does appear euvolemic currently. Patient spoke with Dr. Schaffer at shift change that he was wanting to be admitted which we do feel is pertinent at this time giving his lab derangements and symptoms, plan was to transfer him to [facility] [place] where his insurance is excepted. I introduced myself at 7 AM to evaluate the patient. Patient refused my evaluation, states I do not know why you are evaluating me if I cannot even be admitted here. I told him that I will be the one speaking with the transfer center with [facility] [place] and that I needed to perform a physical examinationon him to discuss with the providers at [facility] [place] about the transfer, patient refused my evaluation, states someone come pulled this IV, I am leaving. Patient understands that leaving with his lab abnormalities could lead to permanent disability or , using shared decision making patient will be discharged home with recommendation for close outpatient follow-up. Medications ondansetron (Zofran) injection 4 mg (4 mg IntraVENous Given 08/25/24 8686) Final Impression 1. Elevated serum creatinine 2. Elevated brain natriuretic peptide (BNP) level DISPOSITION Discharge 08/25/2024 07:31:22 AM (Please note that portions of this note may have been completed with a voice recognition program. Efforts were made to edit the dictations but occasionally words are mis-transcribed.) Vargas Beach DO [employer] Vargas [place] DO 08/25/24 0758 [facility]02-24-2025 Telephone encounter Note* Telephone Encounter - Ally Machado RN - 08/23/2024 8:41 AM EST 08/09/24-08/20/24 [facility] Admission, Dr Villalobos consult Complicated by refusal to accept IV electrolyte infusions He also refused [facility] transfer then a bed was avail Again declined life vest 08/22/24 (9:14pm)- [facility] ER- left AMA 08/23/24 (5:25am)- [facility] ER- left [facility] Left a brief VM. [id number] Miscellaneous Notes* Telephone Encounter - Ally Machado RN - 08/23/2024 8:41 AM EST 08/09/24-08/20/24 [facility] Admission, Dr Villalobos consult 08/22/24 (9:14pm)- [facility] ER- left AMA 08/22/24 (5:25am)- [facility] ER- left AMA * Telephone Encounter - Manuela White RP - 08/23/2024 8:11 AM EST Discharged with heart failure. Needs 72 hour post discharge phone call. documented in this [facility]02-24-2025 Miscellaneous Notes* Telephone Encounter - Ally Machado RN - 08/23/2024 8:41 AM EST 08/09/24-08/20/24 [facility] Admission, Dr Villalobos consult Complicated by refusal to accept IV electrolyte infusions He also refused [facility] transfer then a bed was avail Again declined life vest 08/22/24 (9:14pm)- [facility] ER- left AMA 08/23/24 (5:25am)- [facility] ER- left AMA [facility] Left a brief VM. * Telephone Encounter - Manuela White RPh - 08/23/2024 8:11 AM EST Discharged with heart failure. Needs 72 hour post discharge phone call. documented in this [facility]02-24-2025 Telephone encounter Note* Telephone Encounter - Manuela White RPh - 08/23/2024 8:11 AM EST Discharged with heart failure. Needs 72 hour post discharge phone call. [employer] Work Phone: [phone] 644-631302-24-2025 Emergency department Note* Maritza Huff RN - 08/23/2024 7:27 AM EST Patient is refusing the IV and lab work. Patient also refusing the Lopressor. Patient reports that he can't swallow meds. This nurse offered to put it in pudding. Patient then reports he does not take medication this early in the morning. Patient given ice water. Dr. Loaiza aware. [id number] Emergency department Note* Maritza Huff RN - 08/23/2024 7:27 AM EST Patient is refusing the IV and lab work. Patient also refusing the Lopressor. Patient reports that he can't swallow meds. This nurse offered to put it in pudding. Patient then reports he does not take medication this early in the morning. Patient given ice water. Dr. Loaiza aware. * Ladraius Guevara RN - 08/23/2024 6:57 AM EST Pt. Ambulated to bathroom. Will monitor for pt. Return to room. * Vic Loaiza MD - 08/23/2024 5:25 AM EST Emergency Department Encounter Location: [facility] ED Patient: Carlo Medina : 1980 Date of evaluation: 08/23/2024 ED Provider: Vic Loaiza MD Time received sign-out: 0700 Carlo Medina was checked out to me by Dr Roa. Please see his/her initial documentation for details of the patient's initial ED presentation, physical exam and completed studies. In brief, Carlo Medina is a 44 y.o. adult that presented to the emergency department with cp and sob and abdominal pain. Recent admission for the same and patient left AMA. Was at General yesterdayand left AMA. Refused IV here. Cxr and CT pending I have reviewed and interpreted all of the currently available lab results and diagnostics from this visit: Results for orders placed or performed during the hospital encounter of 08/23/24 ECG 12 lead Collection Time: 08/23/24 5:40 AM Result Value Ref Range Heart Rate 119 bpm QRSD Interval 155 ms QT Interval 380 ms QTC Interval 535 ms P [place] 58 degrees QRS [place] -78 degrees T Wave [place] 76 degrees IN Interval [address] abdomen pelvis wo IV contrast Final Result 1. Cardiomegaly. 2. Small amount of free fluid within the dependent pelvis. Trace amount of perihepatic free fluid. Report Dictated on Electronically Signed By: Juan Pereira MD Electronically Signed Date/Time: 08/23/2024 6:56 AM EST XR chest 1 view Final Result 1. No acute cardiopulmonary process. 2. Cardiomegaly. Report Dictated on Electronically Signed By: Juan Pereira MD Electronically Signed Date/Time: 08/23/2024 6:43 AM EST Final ED Course and MDM: Carlo Medina is a 44 y.o. whose care was signed out to me by the outgoing provider. In brief, patient initially said he wanted to be transferred to [facility] [place] because he still has symptoms. The cxr and CT show no new findings. No pulmonary edema. He had bloodwork that was all at baseline or better at General yesterday. I tried to give him his oral metoprolol dose but he refused it. Patient will be discharged with FU with Dr Astudillo as scheduled. Medications metoprolol tartrate (Lopressor) tablet 25 mg (has no administration in time range) ondansetron ODT (Zofran-ODT) disintegrating tablet 4 mg (4 mg Oral Given 08/23/24711) Final Impression 1. Biventricular congestive heart failure (HCC) DISPOSITION (Please note that portions of this note may have been completed with a voice recognition program. Efforts were made to edit the dictations but occasionally words are mis-transcribed.) Vic Loaiza MD [employer] Vic Loaiza MD 08/23/24724 * Ladarius Guevara RN - 08/23/2024 5:25 AM EST Pt. Arrived to ED via personal transport with chief complaints of abdominal pain, CP and SOB. Pt. Reports onset of symptoms at approximately 1600. Pt. Ambulatory and VS WDL. Patient states being on blood thinners and reports hx of bilateral DVT's. Pt. Placed on cardiac monitoring. EKG order placed as per protocol. Provider notified of patient arrival. documented in this [place] [id number] Emergency department Note* Ladarius Guevara RN - 08/23/2024 6:57 AM EST Pt. Ambulated to bathroom. Will monitor for pt. Return to room. [id number] [facility] Discharge instructions* Discharge Instructions* Joel Roa MD - 08/23/2024 6:47 AM EST Continue your current medications. Keep your appointment with your radar engineer next week. * Attachments The following attachments cannot be sent through Care Everywhere. * Heart Failure Discharge Instructions, Adult ([place]) documented in this [facility]02-24-2025 Emergency department Triage note* Ladarius Guevara RN - 08/23/2024 5:25 AM EST Pt. Arrived to ED via personal transport with chief complaints of abdominal pain, CP and SOB. Pt. Reports onset of symptoms at approximately 1600. Pt. Ambulatory and VS WDL. Patient states being on blood thinners and reports hx of bilateral DVT's. Pt. Placed on cardiac monitoring. EKG order placed as per protocol. Provider notified of patient arrival. [id number] Physician Emergency department Note* Vic Loaiza MD - 08/23/2024 5:25 AM EST Emergency Department Encounter Location: [facility] ED Patient: Carlo Medina : 1980 Date of evaluation: 08/23/2024 ED Provider: Vic Loaiza MD Time received sign-out: 0700 Carlo Medina was checked out to me by Dr Roa. Please see his/her initial documentation for details of the patient's initial ED presentation, physical exam and completed studies. In brief, Carlo Medina is a 44 y.o. adult that presented to the emergency department with cp and sob and abdominal pain. Recent admission for the same and patient left AMA. Was at General yesterdayand left AMA. Refused IV here. Cxr and CT pending I have reviewed and interpreted all of the currently available lab results and diagnostics from this visit: Results for orders placed or performed during the hospital encounter of 08/23/24 ECG 12 lead Collection Time: 08/23/24 5:40 AM Result Value Ref Range Heart Rate 119 bpm QRSD Interval 155 ms QT Interval 380 ms QTC Interval 535 ms P [place] 58 degrees QRS [place] -78 degrees T Wave [place] 76 degrees IN Interval [address] abdomen pelvis wo IV contrast Final Result 1. Cardiomegaly. 2. Small amount of free fluid within the dependent pelvis. Trace amount of perihepatic free fluid. Report Dictated on Electronically Signed By: Juan Pereira MD Electronically Signed Date/Time: 08/23/2024 6:56 AM EST XR chest 1 view Final Result 1. No acute cardiopulmonary process. 2. Cardiomegaly. Report Dictated on Electronically Signed By: Juan Pereira MD Electronically Signed Date/Time: 08/23/2024 6:43 AM EST Final ED Course and MDM: Carlo Medina is a 44 y.o. whose care was signed out to me by the outgoing provider. In brief, patient initially said he wanted to be transferred to [facility] [place] because he still has symptoms. The cxr and CT show no new findings. No pulmonary edema. He had bloodwork that was all at baseline or better at General yesterday. I tried to give him his oral metoprolol dose but he refused it. Patient will be discharged with FU with Dr Astudillo as scheduled. Medications metoprolol tartrate (Lopressor) tablet 25 mg (has no administration in time range) ondansetron ODT (Zofran-ODT) disintegrating tablet 4 mg (4 mg Oral Given 08/23/24 0712) Final Impression 1. Biventricular congestive heart failure (HCC) DISPOSITION (Please note that portions of this note may have been completed with a voice recognition program. Efforts were made to edit the dictations but occasionally words are mis-transcribed.) Vic Loaiza MD [facility] Vic Loaiza MD 08/23/24 0725 [id number] Nurse Note* Jacque Clark RN - 08/20/2024 3:01 PM EST . IV heplock removed. Discharge instructions reviewed with patient. All questions answered. Pt discharged to home with all belongings. * Jacque Clark RN - 08/20/2024 2:37 PM EST Pt adamant on leaving right now. Pt does not want meds to beds Patient would like medications sent to the [facility] in [place] on [address] Aguilar notified via secure chat. * Jacque Clark RN - 08/20/2024 11:[address] Briones notified regarding pt refusing meds and lab draw. * Jacque Clark RN - 08/20/2024 7:[address] Aguilar notified tele order . Okay to have patient off tele. * Yue Patterson RN - 08/18/2024 7:22 PM EST [facility] called and states that patient has a bed assignment, this RN told patient he has a bed and patient states he does not want to go now because he will be getting discharged tomorrow or Friday. Explained to patient that he is out of network and his stay is not covered, patient states complete understanding of the situation and politely declines going to [facility]. I updated Dr. Webb from [facility] regarding patient refusal to leave. [facility] called and updated that patient refusing togo. * Sonia Zambrano RN - 08/18/2024 9:32 AM EST Updated [facility] with patient vitals [facility] * Sonia Zambrano RN - 08/18/2024 9:22 AM EST Patient refusing iv magnesium patient requesting shower ok per dr coppola for patient to take oral magnesium only and ok to shower * Yue Patterson RN - 08/17/2024 9:06 PM EST Patient due for IV magnesium and IV bumex, IV had to be removed on dayshift, patient refusing for public health staff nurse's to place IV, despite places to poke, states he was a plasma donor and is a hard stick, will only allow [facility] to place IV via ultrasound. [facility] called again at this time to place IV. Patient understands this can delay treatment as [facility] has emergencies as well. No further concerns at this time. [facility] RN placed 20 gauge IV without ultrasound. Patient agreeable to bumex and ONLY 1 hour of magnesium bolus to run (states doctor said I only need to do an hour of this and that's all I am doing). Patient set a phone alarm and called RN 1 hour later to stop the infusion, therefore patient only received half of the 2g magnesium bolus. * Sonia Zambrano RN - 08/17/2024 4:15 PM EST Patient has order for 2 gm magnesium bolus patient initially refused iv bolus dr coppola spoke with patient and patient was then agreeable to one hour of a mag bolus, which would equal [address] coppola and kathi informed of this when magnesium was infusing for 2 minutes, patient states iv site hurts and to remove iv patient states he was a plasma donor and to call rapid response for iv placement , states he is very difficult to get iv access on.. this rn left message with rapid response and notified dr coppola and gabrielle via secure chat that mag bolus has been stopped at this time waiting for new iv * Soraida Garsia RN - 08/17/2024 6:08 AM EST RN notified Dr. Samuel of potassium 3.3 and mag 1.3. waiting for repletion orders. Pt refusing mag IV bolus. RN messaged Dr. Samuel asking for oral option instead. Pt refusing potassium until after he eats his breakfast. * Soraida Garsia RN - 08/16/2024 11:00 PM EST RN notified Dr. Peterson of 17 beat run of vta. Pt asymptomatic. Mag level added to morning labs. * Luma Rangel RN - 08/14/2024 1:33 AM EST Pt refused bloodwork this night, RN attempted to educate on reasons why bloodwork being drawn daily. Notified Dr. Hawley. * Soraida Garsia RN - 08/13/2024 6:28 AM EST RN notified Dr. Hawley that patient is refusing all labs this morning. documented in this [facility]02-21-2025 Miscellaneous Notes* Care Plan - Jacque Clark RN - 08/20/2024 12:54 PM EST * Care Coordination - Rima Reyes RN - 08/20/2024 12:24 PM EST Cardiology has signed off. Now on PO diuretics. Nephrology following. We do not take pt insurance, has refused transfer to [facility] [place]. Anticipate discharge next 24 hrs, home with no needs. .Electronicallysigned by Rima Reyes RN on 08/20/2024 at 12:26 PM * Care Plan - Yue Patterson RN - 08/19/2024 9:40 PM EST Problem: Pain - Adult Goal: Verbalizes/displays adequate comfort level or baseline comfort level Outcome: Progressing Problem: Safety - Adult Goal: Free from fall injury Outcome: Progressing Problem: Discharge Planning Goal: Discharge to home or other facility with appropriate resources Outcome: Progressing Problem: Chronic Conditions and Co-morbidities Goal: Patient's chronic conditions and co-morbidity symptoms are monitored and maintained or improved Outcome: Progressing Problem: Knowledge Deficit Goal: Patient/family/caregiver demonstrates understanding of disease process, treatment plan, medications, and discharge instructions Outcome: Progressing Problem: Hemodynamic Status Goal: Patient's vitals signs are stable Outcome: Progressing Problem: Excessive Fluid Volume Goal: Fluid and electrolyte balance are achieved/maintained Outcome: Progressing Problem: Inadequate Gas Exchange Goal: Patient is adequately oxygenated and ventilation is improved Outcome: Progressing Goal: Nutritional status is improving Outcome: Progressing Problem: Activity Intolerance/Impaired Mobility Goal: Mobility/activity is maintained at optimum level for patient Outcome: Progressing Problem: Nutrition Goal: Nutritional status is improving Outcome: Progressing Problem: Potential for Compromised Skin Integrity Goal: Nutritional status is improving Outcome: Progressing Goal: Skin Integrity is Maintained or Improved Outcome: Progressing Problem: Urinary Incontinence Goal: Perineal skin integrity is maintained or improved Outcome: Progressing Problem: Problem Interventions Goal: Assess Nutritional Intake Outcome: Progressing * Care Plan - Sonia Zambrano RN - 08/19/2024 7:55 PM EST Problem: Pain - Adult Goal: Verbalizes/displays adequate comfort level or baseline comfort level Outcome: Progressing Problem: Safety - Adult Goal: Free from fall injury Outcome: Progressing Problem: Discharge Planning Goal: Discharge to home or other facility with appropriate resources Outcome: Progressing Problem: Chronic Conditions and Co-morbidities Goal: Patient's chronic conditions and co-morbidity symptoms are monitored and maintained or improved Outcome: Progressing Problem: Hemodynamic Status Goal: Patient's vitals signs are stable Outcome: Progressing Problem: Excessive Fluid Volume Goal: Fluid and electrolyte balance are achieved/maintained Outcome: Progressing * Care Coordination - Rima Reyes RN - 08/19/2024 11:14 AM EST When ok with Cardiology will be discharged. Refused to go to [facility], [place] last night. We do not accept hisinsurance. Pt is aware. .s * Care Plan - Sonia Zambrano RN - 08/18/2024 3:19 PM EST Problem: Pain - Adult Goal: Verbalizes/displays adequate comfort level or baseline comfort level Outcome: Progressing Problem: Safety - Adult Goal: Free from fall injury Outcome: Progressing Problem: Discharge Planning Goal: Discharge to home or other facility with appropriate resources Outcome: Progressing Problem: Chronic Conditions and Co-morbidities Goal: Patient's chronic conditions and co-morbidity symptoms are monitored and maintained or improved Outcome: Progressing Problem: Knowledge Deficit Goal: Patient/family/caregiver demonstrates understanding of disease process, treatment plan, medications, and discharge instructions Outcome: Progressing Problem: Hemodynamic Status Goal: Patient's vitals signs are stable Outcome: Progressing Problem: Excessive Fluid Volume Goal: Fluid and electrolyte balance are achieved/maintained Outcome: Progressing Problem: Inadequate Gas Exchange Goal: Patient is adequately oxygenated and ventilation is improved Outcome: Progressing * Care Coordination - MADDIE Hawk - 08/18/2024 2:28 PM EST Social Work Coverage-Per [facility] pt ahd some questions re: disability paper work-Up to the room, introduced self -pt wanted assistance with completing disability paperwork. Provided pt with written information and a social security phone number [phone]. Explained that pt would need to contact themre: this issue and that they would explain the process and inform him of what info he would need tocomplete paperwork. There is also medical information that pt's doctor would need to complete if ptmeets the eligibility for the program. * Care Coordination - Rima Reyes RN - 08/18/2024 11:45 AM EST Per RN [facility] calls daily, no bed available. Nephrology and Cardiology following. Needs electrolytesreplaced. Not willing to take all of it. Plan is home when stable, no needs. .Electronically signedby Rima Reyes RN on 08/18/2024 at 11:48 AM * Care Plan - Yue Patterson RN - 08/17/2024 8:48 PM EST Problem: Pain - Adult Goal: Verbalizes/displays adequate comfort level or baseline comfort level Outcome: Progressing Problem: Safety - Adult Goal: Free from fall injury Outcome: Progressing Problem: Discharge Planning Goal: Discharge to home or other facility with appropriate resources Outcome: Progressing Problem: Chronic Conditions and Co-morbidities Goal: Patient's chronic conditions and co-morbidity symptoms are monitored and maintained or improved Outcome: Progressing Problem: Knowledge Deficit Goal: Patient/family/caregiver demonstrates understanding of disease process, treatment plan, medications, and discharge instructions Outcome: Progressing Problem: Hemodynamic Status Goal: Patient's vitals signs are stable Outcome: Progressing Problem: Excessive Fluid Volume Goal: Fluid and electrolyte balance are achieved/maintained Outcome: Progressing Problem: Inadequate Gas Exchange Goal: Patient is adequately oxygenated and ventilation is improved Outcome: Progressing Goal: Nutritional status is improving Outcome: Progressing Problem: Activity Intolerance/Impaired Mobility Goal: Mobility/activity is maintained at optimum level for patient Outcome: Progressing Problem: Nutrition Goal: Nutritional status is improving Outcome: Progressing Problem: Potential for Compromised Skin Integrity Goal: Nutritional status is improving Outcome: Progressing Goal: Skin Integrity is Maintained or Improved Outcome: Progressing Problem: Urinary Incontinence Goal: Perineal skin integrity is maintained or improved Outcome: Progressing Problem: Problem Interventions Goal: Assess Nutritional Intake Outcome: Progressing * Care Plan - Sonia Zambrano RN - 08/17/2024 4:21 PM EST Problem: Pain - Adult Goal: Verbalizes/displays adequate comfort level or baseline comfort level Outcome: Progressing Problem: Safety - Adult Goal: Free from fall injury Outcome: Progressing Problem: Chronic Conditions and Co-morbidities Goal: Patient's chronic conditions and co-morbidity symptoms are monitored and maintained or improved Outcome: Progressing Problem: Knowledge Deficit Goal: Patient/family/caregiver demonstrates understanding of disease process, treatment plan, medications, and discharge instructions Outcome: Progressing Problem: Excessive Fluid Volume Goal: Fluid and electrolyte balance are achieved/maintained Outcome: Progressing Problem: Inadequate Gas Exchange Goal: Patient is adequately oxygenated and ventilation is improved Outcome: Progressing Problem: Activity Intolerance/Impaired Mobility Goal: Mobility/activity is maintained at optimum level for patient Outcome: Progressing Problem: Nutrition Goal: Nutritional status is improving Outcome: Progressing Problem: Urinary Incontinence Goal: Perineal skin integrity is maintained or improved Outcome: Progressing * Care Coordination - MADDIE Hui - 08/17/2024 2:43 PM EST Met with patient to offer assistance in obtaining a primary care physician. He said he already has one, but cannot recall the name of the provider. Has appointment at the end of the month; information on the appointment is at home. * Care Coordination - Rima Reyes RN - 08/17/2024 10:49 AM EST Care Management Progress Note On IV Bumex. Refusing blood draws and meds. Mg and K+ getting replaced today. Pt aware we do not take his insurance. Plan is home when stable. . Length of Stay (Days): 8 GMLOS: 3.9 * Care Plan - Soraida Garsia RN - 08/17/2024 3:52 AM EST Problem: Pain - Adult Goal: Verbalizes/displays adequate comfort level or baseline comfort level Outcome: Progressing Problem: Safety - Adult Goal: Free from fall injury Outcome: Progressing Problem: Discharge Planning Goal: Discharge to home or other facility with appropriate resources Outcome: Progressing Problem: Chronic Conditions and Co-morbidities Goal: Patient's chronic conditions and co-morbidity symptoms are monitored and maintained or improved Outcome: Progressing Problem: Knowledge Deficit Goal: Patient/family/caregiver demonstrates understanding of disease process, treatment plan, medications, and discharge instructions Outcome: Progressing Problem: Excessive Fluid Volume Goal: Fluid and electrolyte balance are achieved/maintained Outcome: Progressing Problem: Inadequate Gas Exchange Goal: Patient is adequately oxygenated and ventilation is improved Outcome: Progressing Goal: Nutritional status is improving Outcome: Progressing * Care Plan - Renate Packer RN - 08/16/2024 1:30 AM EST Problem: Pain - Adult Goal: Verbalizes/displays adequate comfort level or baseline comfort level Outcome: Progressing Flowsheets (Taken 08/15/20241999) Verbalizes/displays adequate comfort level or baseline comfort level: Encourage patient to monitor pain and request assistance Assess pain using appropriate pain scale Administer analgesics based on type and severity of pain and evaluate response Problem: Safety - Adult Goal: Free from fall injury Outcome: Progressing Problem: Discharge Planning Goal: Discharge to home or other facility with appropriate resources Outcome: Progressing Problem: Chronic Conditions and Co-morbidities Goal: Patient's chronic conditions and co-morbidity symptoms are monitored and maintained or improved Outcome: Progressing Problem: Knowledge Deficit Goal: Patient/family/caregiver demonstrates understanding of disease process, treatment plan, medications, and discharge instructions Outcome: Progressing Problem: Hemodynamic Status Goal: Patient's vitals signs are stable Outcome: Progressing Problem: Excessive Fluid Volume Goal: Fluid and electrolyte balance are achieved/maintained Outcome: Progressing Problem: Inadequate Gas Exchange Goal: Patient is adequately oxygenated and ventilation is improved Outcome: Progressing Goal: Nutritional status is improving Outcome: Progressing Problem: Activity Intolerance/Impaired Mobility Goal: Mobility/activity is maintained at optimum level for patient Outcome: Progressing Problem: Nutrition Goal: Nutritional status is improving Outcome: Progressing Problem: Potential for Compromised Skin Integrity Goal: Nutritional status is improving Outcome: Progressing Goal: Skin Integrity is Maintained or Improved Outcome: Progressing Problem: Urinary Incontinence Goal: Perineal skin integrity is maintained or improved Outcome: Progressing Problem: Problem Interventions Goal: Assess Nutritional Intake Outcome: Progressing * Care Plan - Elvira Peralta RN - 08/15/2024 4:46 PM EST Problem: Chronic Conditions and Co-morbidities Goal: Patient's chronic conditions and co-morbidity symptoms are monitored and maintained or improved Outcome: Progressing Problem: Knowledge Deficit Goal: Patient/family/caregiver demonstrates understanding of disease process, treatment plan, medications, and discharge instructions Outcome: Progressing Problem: Excessive Fluid Volume Goal: Fluid and electrolyte balance are achieved/maintained Outcome: Progressing * Care Plan - Renate Packer RN - 08/15/2024 1:15 AM EST Problem: Pain - Adult Goal: Verbalizes/displays adequate comfort level or baseline comfort level Outcome: Progressing Flowsheets (Taken 08/14/20241999) Verbalizes/displays adequate comfort level or baseline comfort level: Encourage patient to monitor pain and request assistance Assess pain using appropriate pain scale Administer analgesics based on type and severity of pain and evaluate response Problem: Safety - Adult Goal: Free from fall injury Outcome: Progressing Problem: Discharge Planning Goal: Discharge to home or other facility with appropriate resources Outcome: Progressing Problem: Chronic Conditions and Co-morbidities Goal: Patient's chronic conditions and co-morbidity symptoms are monitored and maintained or improved Outcome: Progressing Problem: Knowledge Deficit Goal: Patient/family/caregiver demonstrates understanding of disease process, treatment plan, medications, and discharge instructions Outcome: Progressing Problem: Hemodynamic Status Goal: Patient's vitals signs are stable Outcome: Progressing Problem: Excessive Fluid Volume Goal: Fluid and electrolyte balance are achieved/maintained Outcome: Progressing Problem: Inadequate Gas Exchange Goal: Patient is adequately oxygenated and ventilation is improved Outcome: Progressing Goal: Nutritional status is improving Outcome: Progressing Problem: Activity Intolerance/Impaired Mobility Goal: Mobility/activity is maintained at optimum level for patient Outcome: Progressing Problem: Nutrition Goal: Nutritional status is improving Outcome: Progressing Problem: Potential for Compromised Skin Integrity Goal: Nutritional status is improving Outcome: Progressing Goal: Skin Integrity is Maintained or Improved Outcome: Progressing Problem: Urinary Incontinence Goal: Perineal skin integrity is maintained or improved Outcome: Progressing * Care Plan - Luma Rangel RN - 08/13/2024 10:42 PM EST Problem: Pain - Adult Goal: Verbalizes/displays adequate comfort level or baseline comfort level Outcome: Progressing Problem: Safety - Adult Goal: Free from fall injury Outcome: Progressing Problem: Discharge Planning Goal: Discharge to home or other facility with appropriate resources Outcome: Progressing Problem: Chronic Conditions and Co-morbidities Goal: Patient's chronic conditions and co-morbidity symptoms are monitored and maintained or improved Outcome: Progressing Problem: Knowledge Deficit Goal: Patient/family/caregiver demonstrates understanding of disease process, treatment plan, medications, and discharge instructions Outcome: Progressing Problem: Hemodynamic Status Goal: Patient's vitals signs are stable Outcome: Progressing Problem: Excessive Fluid Volume Goal: Fluid and electrolyte balance are achieved/maintained Outcome: Progressing Problem: Inadequate Gas Exchange Goal: Patient is adequately oxygenated and ventilation is improved Outcome: Progressing Goal: Nutritional status is improving Outcome: Progressing Problem: Activity Intolerance/Impaired Mobility Goal: Mobility/activity is maintained at optimum level for patient Outcome: Progressing Problem: Nutrition Goal: Nutritional status is improving Outcome: Progressing * Care Coordination - Rima Reyes RN - 08/13/2024 2:54 PM EST Has an accepting DR at [facility], [place], no beds. Continues on IV Bumex. Plan is home when stable, * Care Coordination - MADDIE Madrid - 08/13/2024 1:31 PM EST SW met with pt. Introduced self. SW completed 30 day readmission questionnaire with pt. Pt denies any needs from SW at this time. * Care Plan - Soraida Garsia RN - 08/13/2024 4:48 AM EST Problem: Pain - Adult Goal: Verbalizes/displays adequate comfort level or baseline comfort level Outcome: Progressing Problem: Safety - Adult Goal: Free from fall injury Outcome: Progressing Problem: Discharge Planning Goal: Discharge to home or other facility with appropriate resources Outcome: Progressing Problem: Chronic Conditions and Co-morbidities Goal: Patient's chronic conditions and co-morbidity symptoms are monitored and maintained or improved Outcome: Progressing * Care Coordination - Rima Reyes RN - 08/12/2024 2:02 PM EST Informed pt that we do not take his insurance. Can only go to [facility], [place]. Made Dr aware, he is waiting for a return call to see if we can transfer. . * Nurse Navigation Note - Dia Gaitan RN - 08/12/2024 10:26 AM EST HF booster pump oiler: Reviewed HFS consult. Met with pt to discuss treatment plan, including rationale for adjusting GDMT (beta jerome discontinued, noted to have refused hydral/ISDN last night) and if pt does not improve (renal function/increased UOP), that swan guided therapy may be warranted. Reviewed that swan guided therapy is needed when there is concern for low cardiac output. Reviewed procedure and that swan is used to measure pressures which provide data on the heart's output as well as volume status to assist with safe diuresis. Asked pt if he had any questions about treatment plan and pt shook head no, and stated I will not let them put a thing in my neck. Will continue to follow- lactic acid pending. HFN contact given to pt. * Care Plan - aErlene Mondragon RN - 08/12/2024 1:19 AM EST Problem: Pain - Adult Goal: Verbalizes/displays adequate comfort level or baseline comfort level Outcome: Progressing Problem: Safety - Adult Goal: Free from fall injury Outcome: Progressing Problem: Discharge Planning Goal: Discharge to home or other facility with appropriate resources Outcome: Progressing Problem: Chronic Conditions and Co-morbidities Goal: Patient's chronic conditions and co-morbidity symptoms are monitored and maintained or improved Outcome: Progressing Problem: Knowledge Deficit Goal: Patient/family/caregiver demonstrates understanding of disease process, treatment plan, medications, and discharge instructions Outcome: Progressing Problem: Hemodynamic Status Goal: Patient's vitals signs are stable Outcome: Progressing Problem: Excessive Fluid Volume Goal: Fluid and electrolyte balance are achieved/maintained Outcome: Progressing * Care Plan - Izaiah Wilcox RN - 08/11/2024 5:45 PM EST Progressing * Care Plan - Selena Carlisle PA-C - 08/11/2024 11:15 AM EST Consult acknowledged Most recent labs and imaging reviewed Patient to be seen Full note to follow Thank you for the opportunity to participate in the care of this patient. Please do not hesitate tocontact me with any questions or concerns. DAVID Bajwa PA-C [facility] * Individualized Overall Plan of Care Note - Enedina Vega MD - 08/11/2024 10:58 AM EST Images from the original note were not included. Patient: Carlo Medina Room number: [id number] Date of Admit: 08/09/2024 LOS: 2 days Consult acknowledged Patient had been seen by [facility] - will transfer for continuity of care. Thank you Pager: [phone] Office: [phone]. * Care Coordination - MADDIE Hawk - 08/11/2024 10:55 AM EST 30 day re-admit completed. * Nurse Navigation Note - Dia Gaitan RN - 08/11/2024 10:22 AM EST HF booster pump oiler: Chart reviewed. Pt presents with worsening SOB/CARRERA, abdominal distention/bloating/discomfort and CP. Admitted with concern for acute on chronic HFrEF and SCHUYLER on CKD. NTproBNP 16,371 (previously 17,954 on 08/05/24). CXR without edema/effusions. Received 1x dose of IV lasix. Nephrology and HFS c/s pending. This RN is very familiar with pt from previous admissions and numerous TE. HF action plan added to AVS. Recommendations: - Do not see a drug screen completed since receiving HF diagnosis, should be considered. S.C. to Dr. Celaya Met with pt for HF education and to try to identify possible precipitant to admission- This is the pt's 9th hospitalization for ADHF since first receiving diagnosis in 01/2024. Pt has also had 3 ED visits since 01/2024. Topics covered include: Low sodium diet and 1.5L fluid restriction, how and when to obtain daily weight with weight parameters, HF signs and symptoms, self-monitoring/management with HF Zones tool, how/when to contact Cardiology, activity, pathophysiology of condition, prognosis, purpose of medications and side effects, importance of close follow-up with provider. Discussed HF mortality rate of ~ 75% at 5 years following initial HF hospitalization (HFSA- HF Stats). This mortality rate is comparable to some cancers. HF GDMT will help slow disease progression, improve quality of life, reduce HF hospitalizations and reduce risk of from HF. Cardiac Rehab (added edu to AVS) Focused on possible precipitants to admission: - Pt reports compliance with medications and is frustrated that providers believe he is not being compliant. Discussed frequent hospitalizations/ED visits despite GDMT as rationale for concern of medication non-adherence. - Pt believes sometimes eating things I shouldn't, may have possibly caused frequent decompensations. Reports knowing how to read a food label, does not eat out often, avoids processed meats/prepared meals. Does not want to be seen by the dietitian. Pt provided teach back for: LVEF 20% 2g Na restriction diet Weights with parameters Confirmed having [facility] phone number to report new/worsening symptoms and that IV/IM lasix available in the office. OK with continuing in [place] at [facility] for now, but would like to eventually get into [place] office. Importance of medication compliance Heart Failure Accreditation Quality Metrics All Clinical Practice Guidelines and references available on the [employer] Heart Failure resource page (Resources --> [facility] --> Heart Failure) Established Bending Shed Worker: Dr. Astudillo Follow up scheduled within 14 days: 08/18 at 1:00PM with Maritza Ambrosio PA-C LVEF evaluation within the past 12 months: Yes NYHA class documentation by provider: Yes HF order set used: No Daily weight ordered:Yes Intake and output ordered: Yes HF education added: Yes HF care plan added: Yes Class 1 HFrEF GDMT- Defer to HFS- will be limited d/t SCHUYLER on CKD (Treatment pathway available on [employer] Heart Failure resource page) LUCRECIA/ARB/ARNI: No BB: Yes, carvedilol 25mg BID MRA: No- 12.5mg spironolactone daily on hold SGLT2-I: No Diuretic: Yes, bumex 1mg PO BID Hydral/ISDN: No HRIS ANALYST-D Appropriateness Screen (Referral pathway available on [facility] Heart Failure resource page) LVEF < 35%: Yes QRS > 150 ms: Yes LBBB pattern: Yes NYHA Class II, III or ambulatory IV symptoms on GDMT: Unclear GDMT compliance and room for optimization per last OV note with Dr. Astudillo. Defer to HFS * Care Plan - Izaiah Wilcox RN - 08/11/2024 7:44 AM EST Progressing * Care Plan - Sisi Leroy RN - 08/10/2024 10:54 PM EST Problem: Pain - Adult Goal: Verbalizes/displays adequate comfort level or baseline comfort level Outcome: Progressing Problem: Safety - Adult Goal: Free from fall injury Outcome: Progressing Problem: Discharge Planning Goal: Discharge to home or other facility with appropriate resources Outcome: Progressing Problem: Chronic Conditions and Co-morbidities Goal: Patient's chronic conditions and co-morbidity symptoms are monitored and maintained or improved Outcome: Progressing Problem: Knowledge Deficit Goal: Patient/family/caregiver demonstrates understanding of disease process, treatment plan, medications, and discharge instructions Outcome: Progressing Problem: Hemodynamic Status Goal: Patient's vitals signs are stable Outcome: Progressing Problem: Excessive Fluid Volume Goal: Fluid and electrolyte balance are achieved/maintained Outcome: Progressing Problem: Inadequate Gas Exchange Goal: Patient is adequately oxygenated and ventilation is improved Outcome: Progressing Goal: Nutritional status is improving Outcome: Progressing Problem: Activity Intolerance/Impaired Mobility Goal: Mobility/activity is maintained at optimum level for patient Outcome: Progressing Problem: Nutrition Goal: Nutritional status is improving Outcome: Progressing documented in this [facility]02-21-2025 [facility] 08-20-2024 History of Present illness Narrative* Alonzo Aguilar MD - 08/20/2024 12:37 PM EST Hospitalist Progress Note 08/20/2024 Subjective: Admit Date: 08/09/2024 PCP: No primary care provider on file. Room#: 5[facility] A BRIEF HOSPITAL COURSE: Carlo Medina is a 44 y.o. male with history of HTN, HLD, CAD, NICM/HFrEF, CKD 3, PE, noncompliance who presented to ED on 08/09/24 for chest pain, SOB, abdominal pain, and lightheadedness. In ED, initial labs significant for BUN 35, Cr 1.94, ALP 194, AST/ALT 52/95, WBC 8.8 wnl, Hb 14.2, HS troponin 31, BNP 16,371. EKG showed sinus tachycardia. CXR showed enlarged cardiac silhouette similar to previous exam. Given IV morphine and zofran in ED. Admitted for further evaluation and management. Renal US showed findings compatible with medical renal disease similar to comparison, no significant hydronephrosis, and small amount of perihepatic fluid. Cardiology consulted/following, started GDMT, recommended swan guided therapy if patient does not improve with PO meds, but patient adamantly refusing swan. Nephrology consulted/following. Notified by TCC that patient's insurance is out of network, so called [facility] transfer line and discussed with hospitalist; patient accepted for transferto [facility] pending bed availability. Interval History: No acute overnight events. Cousin present at bedside this AM. Patient laying in bed, Aox3, on room air. States that he is doing better this AM. Reports improvement in SOB and leg swelling. Currently denies fever, chills, chest pain, SOB. During encounter, cousin sternly advised patient to follow recommendations of medical team while admitted. Case and plan discussed with patient and TCC. Questions answered. 08/17 Pt awake Sob stable No CP 08/18 Pt awake Walking in halls No CP Some issues with refusal of IV medications per staff 08/19 Declined [place] tx yesterday PM No CP today Sob stable 08/20 Pt awake No CP Feels close to baseline Less sob Adult diet Regular; No Added Salt (3-4 gm); 2000 ml 24HR INTAKE/OUTPUT: Intake/Output Summary (Last 24 hours) at 08/20/2024 1237 Last data filed at 08/20/2024 0327 Gross per 24 hour Intake 470 ml Output 1350 ml Net -880 ml Past Medical History: Past Medical History: Diagnosis Date Acute HFrEF (heart failure with reduced ejection fraction) ([facility]) 06/13/2024 Acute kidney injury superimposed on CKD ([facility]) ([facility]) 07/03/2024 At risk for obstructive sleep apnea 05/31/2024 o/p sleep study recommended during admission CHF (congestive heart failure) ([facility]) CKD (chronic kidney disease) H/O noncompliance with medical treatment, presenting hazards to health 06/19/2024 HFrEF (heart failure with reduced ejection fraction) ([facility]) 04/28/2024 History of left bundle branch block (LBBB) 06/19/2024 Hypercholesteremia Hypertension Left against medical advice 08/04/2024 Noncompliance 06/19/2024 NSTEMI (non-ST elevated myocardial infarction) (HCC) 07/11/2024 Potential for deficient knowledge of congestive heart failure 08/05/2024 Pulmonary embolism (HCC) Pulmonary vascular congestion 04/28/2024 Sinus tachycardia 06/19/2024 LABS: CBC: Recent Labs 08/18/2435808/19/24 0043 08/20/24 0510 WBC 8.4 7.5 8.2 RBC 4.37* 4.25* 4.28* HGB 14.7 14.1 14.2 HCT 44.5 42.1 42.1 MCV 101.8* 99.1* 98.4 RDW 12.8 12.7 12.4 PLT 288 280 291 BMP: Recent Labs 08/19/244208/19/24 1852 08/20/24 0510 NA 136 140 138 K 2.9* 3.3* 3.3* CL 96* 98 101 CO2 28 30* 28 BUN 33* 31* 33* CREATININE 1.64* 1.50* 1.31* GLUCOSE 150* 136* 124* CALCIUM 7.9* 7.6* 7.6* ANIONGAP 12 12 9 LIVER PROFILE: Recent Labs 08/18/2435808/19/243 08/20/24 0510 AST 36* 33 33 ALT 56* 54* 53* BILITOT 1.6* 1.6* 1.6* ALKPHOS 195* 191* 198* PROT 6.4 6.2* 6.0* PT/INR: No results for input(s): PROTIME, INR in the last 72 hours. CARDIAC ENZYMES: No results for input(s): TROPONINI in the last 72 hours. Procalcitonin: No results found for: PROCAL COVID-19 PCR: No results for input(s): COVID19 in the last 72 hours. Objective: Vitals: BP 95/64 Pulse 59 Temp 36.5 C (97.7 F) (Temporal) Resp 14 Ht 6' 1 (1.854 m) Wt 158 lb 4.8 oz (71.8 kg) SpO2 96% BMI 20.89 kg/m Pulse Ox: SpO2 Av.5 % Min: 96 % Max: 99 % Supplemental O2: O2 Flow Rate (L/min): 2 L/min Physical Exam Constitutional: General: He is not in acute distress. Appearance: He is not toxic-appearing. HENT: Head: Normocephalic. Eyes: Extraocular Movements: Extraocular movements intact. Cardiovascular: Rate and Rhythm: Regular rhythm. Tachycardia present. Pulmonary: Effort: Pulmonary effort is normal. No respiratory distress. Abdominal: General: Bowel sounds are normal. Palpations: Abdomen is soft. Musculoskeletal: Right lower leg: Edema present. Left lower leg: Edema present. Skin: General: Skin is warm and dry. Neurological: Mental Status: He is alert and oriented to person, place, and time. Medications: Scheduled PRN apixaban, 5 mg, Oral, BID bumetanide, 1 mg, Oral, BID calcitriol, 0.5 mcg, Oral, BID calcium carbonate, 1,000 mg, Oral, TID calcium gluconate, 2,000 mg, IntraVENous, Once calcium gluconate, 2,000 mg, IntraVENous, Q4H ergocalciferol, 1.25 mg, Oral, Weekly losartan, 50 mg, Oral, Daily magnesium oxide, 400 mg, Oral, BID magnesium sulfate, 2,000 mg, IntraVENous, Daily melatonin, 3 mg, Oral, Nightly metoprolol succinate XL, 25 mg, Oral, Daily potassium chloride CR, 40 mEq, Oral, Daily potassium chloride CR, 40 mEq, Oral, Once spironolactone, 25 mg, Oral, Daily PRN medications: acetaminophen OR acetaminophen, ondansetron ODT OR ondansetron, polyethylene glycol (PEG) 3350 Continuous Assessment Acute, acute on chronic, unstable/uncontrolled chronic problems/diagnoses: # Chest pain, improved # Hx of biventricular dysfunction, acute on chronic HFrEF - TTE (06/15/24): LVEF 20%, severe globalhypokinesis, dilated RV with moderately reduced systolic fxn, 1+ AR, 2+ MR, moderately elevated RVSP. BNP 16,371 on admission. CXR showed enlarged cardiac silhouette similar to previous exam. TTE (08/11/24): LVEF 18%, 1+ AR, 2+ MR, 3+ TR, severely dilated LA, moderately dilated RA. BNP 16,371 (08/09)-> 10,757 (2/13) # Abdominal pain, improved # Lactic acidosis, resolved # Hyponatremia, improved # Hypokalemia - monitor and replete PRN # Transaminitis # Hyperbilirubinemia # Noncompliance with medical treatments Stable chronic problems affecting care, new non-acute diagnoses: # HTN # HLD # CAD # CKD 3 - Renal US (08/10/24) showed findings compatible with medical renal disease similar to comparison, no significant hydronephrosis, and small amount of perihepatic fluid. # Hx of PE - on Eliquis Plan As a result of the above findings & factors, the following mgmt was pursued: - Telemetry monitoring - Cardiology/HF following. Noted patient adamantly declined swan guided therapy as well as bumex gtt. On IV Bumex 3 mg TID, PO Hydralazine 50 mg TID and Isordil 20 mg TID, but patient has been intermittently refusing meds during hospitalization. Holding Coreg due to possible low output HF. Recs noted. - Discussed importance of adherence to recommended medications - Strict I/O's, daily weight - Nephrology following. Noted prognosis remains guarded given complex pathophysiology and patient not cooperative with recommended treatment plans. Recs noted. - Continue chronic medications as able. - [facility] following for dispo planning. Notified by [facility] that patient's insurance is out of network and need to call [facility] [place] transfer line ([phone]) to see if we can get him transferred. Called [facility] [place] transfer line and discussed with hospitalist. Patient accepted for transfer to [facility] [place] pending bed availability which was noted could take awhile (accepting physician: Dr. Govea?). Replace Mg and Ca, K as able-- intermittently refuses IV replacement Discussed importance of IV E-lyte replacement in setting of his HF and NSVT Pt reports he understands his stay may not be covered if he refuses in network tranfers Back to PO medications per cardiology Renal following as well Possibly dc home this PM - am labs, replace lytes prn - delirium precautions: increase activity, schedule melatonin at bedtime, and limit nighttime disturbances - DVT prophylaxis: encourage ambulation and already anticoagulated Advance Directive: Full Code Anticipated Discharge - Date - 08/20 - Location - home - Pending the following - clinical course, building performance consultant recs Extended Emergency Contact Information Primary Emergency Contact: Kaitlin Hicks Mobile Relation: Significant Other Secondary Emergency Contact: Indira Medina Mobile Relation: Sister Alonzo Aguilar MD Division of Hospitalist Medicine [facility] * Saul Briones MD - 08/20/2024 11:00 AM EST [facility] Progress Note Subjective/ 44 y.o. year old male who we are seeing in consultation for CKD stage 3b. Interval History Patient laying in bed, reports breathing feels improved LE edema improved Blood pressures soft. Denies any chest pain or orthopnea ROS Otherwise negative No interval changes to [facility]. All interval notes/labs/imaging reviewed. Objective/ Vitals: 08/19/24 2302 08/20/24 0317 08/20/24 0758 08/20/24 1052 BP: 105/75 99/72 101/82 95/64 BP Location: Right arm Right arm Patient Position: Lying Lying Pulse: 102 105 111 59 Resp: 16 16 16 14 Temp: 36.3 C (97.3 F) 36.4 C (97.6 F) 36.4 C (97.5 F) 36.5 C (97.7 F) TempSrc: Temporal Temporal Temporal Temporal SpO2: 98% 99% 99% 96% Weight: 71.8 kg (158 lb 4.8 oz) Height: 24HR INTAKE/OUTPUT: Intake/Output Summary (Last 24 hours) at 08/20/2024 1100 Last data filed at 08/20/2024 0327 Gross per 24 hour Intake 470 ml Output 1350 ml Net -880 ml Physical Exam Constitutional: Appearance: Normal appearance. HENT: Head: Normocephalic and atraumatic. Mouth/Throat: Mouth: Mucous membranes are moist. Eyes: General: No scleral icterus. Neck: Vascular: JVD (Mild) present. Cardiovascular: Rate and Rhythm: Normal rate and regular rhythm. Pulmonary: Effort: Pulmonary effort is normal. Breath sounds: Normal breath sounds. Comments: Breathing comfortably on RA Abdominal: General: Bowel sounds are normal. Tenderness: There is no abdominal tenderness. Musculoskeletal: Cervical back: Neck supple. Right lower leg: No edema. Left lower leg: No edema. Skin: General: Skin is warm and dry. Neurological: Mental Status: He is alert and oriented to person, place, and time. Psychiatric: Mood and Affect: Mood normal. Thought Content: Thought content normal. Scheduled Meds:apixaban, 5 mg, Oral, BID bumetanide, 1 mg, Oral, BID calcitriol, 0.5 mcg, Oral, BID calcium carbonate, 1,000 mg, Oral, TID calcium gluconate, 2,000 mg, IntraVENous, Once calcium gluconate, 2,000 mg, IntraVENous, Q4H ergocalciferol, 1.25 mg, Oral, Weekly losartan, 50 mg, Oral, Daily magnesium oxide, 400 mg, Oral, BID magnesium sulfate, 2,000 mg, IntraVENous, Daily melatonin, 3 mg, Oral, Nightly metoprolol succinate XL, 25 mg, Oral, Daily potassium chloride CR, 40 mEq, Oral, Daily spironolactone, 25 mg, Oral, Daily Continuous Infusions: PRN Meds:.PRN medications: acetaminophen OR acetaminophen, ondansetron ODT OR ondansetron, polyethylene glycol (PEG) 3350 Data/ Recent Labs 08/18/24 0359 08/19/24 0043 08/20/24 0510 WBC 8.4 7.5 8.2 HGB 14.7 14.1 14.2 HCT 44.5 42.1 42.1 MCV 101.8* 99.1* 98.4 PLT 288 280 291 Recent Labs 08/18/24 0359 08/19/24 0043 08/19/24 1852 08/20/24 0510 NA 137 136 140 138 K 4.0 2.9* 3.3* 3.3* CL 99 96* 98 101 CO2 25 28 30* 28 GLUCOSE 104* 150* 136* 124* MG 1.7 1.4* -- 1.6 BUN 33* 33* 31* 33* CREATININE 1.64* 1.64* 1.50* 1.31* Assessment/ SCHUYLER on CKD stage 3b N19.7, I13.10, N18.32 Ac on Chronic HFrEF I50.23 Hypokalemia E87.6 Hypocalcemia Hyponatremia: hypervolemic E87.1: resolved NAGMA E87.21: resolved HTN in CKD I12.9 Hepatic steatosis Plan/ -Renal function continues to improve and now below the previously presumed baseline of 1.7. -Recommend daily standing weights -Continue current dose of Bumex. -Blood pressures borderline low, on GDMT per cardiology: hydralazine 50 mg TID, Isordil 20 mg TID, and aldactone 25 mg/day -Consider reducing the dose of Hydralazine given soft BP (Increased risk of SCHUYLER). -Aggressive K supplement. In addition to continuing 40 mEq of daily scheduled potassium supplement,per given extra dose. -Given significantly low levels of calcium, will initiate on p.o. Tums and calcitriol along with continuing vitamin D supplement. -Patient has declined to take any form of IV supplement Continue oral magnesium supplement. Continue to trend the levels closely. -Monitor urine output closely, need strict I&Os -Rest of management per primary team Remains at very high risk of complications given noncompliance and significant electrolyte issues including hypocalcemia and hypokalemia placing the patient at a high risk of developing arrhythmias. Discussed with RN, patient and Dr. Aguilar At discharge: Recommend adding turns 3 times daily and calcitriol for 1 week along with ergocalciferol weekly. Explained to him about the need for close follow-up. * Soraida Damon RD - 08/19/2024 1:48 PM EST Nutrition Assessment Type and Reason for Visit: Reassess Nutrition Recommendations/Plan: Continue Adult diet Regular; No Added Salt (3-4 gm); 2000 ml Electrolyte replete per primary - refusals noted RD will sign off to DTR for continued monitoring during hospital admission per facility policy. Please consult as clinically indicated. Malnutrition Assessment: Malnutrition Status: No malnutrition Context: Acute Illness Findings of the 6 clinical characteristics of malnutrition: Energy Intake: No significant decrease in energy intake Weight Loss: No significant weight loss (wt loss 2/2 aggresive IV diuresis) Body Fat Loss: No significant body fat loss Muscle Mass Loss: No significant muscle mass loss Fluid Accumulation: Mild (BLE Edema: Mild pitting, slight indentation) Pharmacy Delivery Driver Strength: Not Performed BRIEF HOSPITAL COURSE: Carlo Medina is a 44 y.o. male with history of HTN, HLD, CAD, NICM/HFrEF, CKD 3, PE, noncompliance who presented to ED on 08/09/24 for chest pain, SOB, abdominal pain, and lightheadedness. In ED, initial labs significant for BUN 35, Cr 1.94, ALP 194, AST/ALT 52/95, WBC 8.8 wnl, Hb 14.2, HS troponin 31, BNP 16,371. EKG showed sinus tachycardia. CXR showed enlarged cardiac silhouette similar to previous exam. Given IV morphine and zofran in ED. Admitted for further evaluation and management. Renal US showed findings compatible with medical renal disease similar to comparison, no significant hydronephrosis, and small amount of perihepatic fluid. Cardiology consulted/following, started GDMT, recommended swan guided therapy if patient does not improve with PO meds, but patient adamantly refusing swan. Nephrology consulted/following. Notified by TCC that patient's insurance is out of network, [facility] and discussed with hospitalist; [facility]. 08/19/24 Interval History: No acute overnight events. Cousin present at bedside this AM. Patient laying in bed, Aox3, on room air. States that he is doing better this AM. Reports improvement in SOB and leg swelling. Currently denies fever, chills, chest pain, SOB. During encounter, cousin sternly advised patient to follow recommendations of medical team while admitted. Case and plan discussed with patient and TCC. Questions answered. Nutrition Assessment: LOS# 10. 44M w/ sig PMHx: HFrEF, NICM, ([facility] no CAD 05/2024), HTN, HLD, CKD III, DVTs on OAC), and poor health literacy/poor medication/follow up compliance who presented to [facility] on 08/09/24 2/2 SOB, CP< and abd pain. This is pt's 9th admission for ADHF since Jan. Hehas been intermittently refusing medications and blood work. This is his 9th admission for ADHF since 01/2024. Throughout admission he has been intermittently refusing meds and blood work. S/p aggressive diuresis since admissionAEB ~ 20# wt loss. Renal fxn is stable and close to baseline. Approx 4.75 L UOP yesterday. HF signed off today. Electrolyte refusals noted. Pt has refused education. PO intakes of NAIMA, 2L FR diet cons istently 100% every meal. Nutrition Related Findings: Wound Type: None Isolation Status: No active isolations Food Allergies: NKFA Room Service: Selective Roosevelt Scale Score: 23 BLE Edema: Mild pitting, slight indentation Gastrointestinal (WDL): Within Defined Limits Last BM Date: 08/17/24 Nutrition History: Independent of feeding and Lives with SO at home Level of Consciousness: Alert; Orientation Level: Oriented X4 Code Status, Oxygen Needs, Vital Signs, I/Os: Code Status: Full Code Oxygen Therapy: SpO2: 100 %; Oxygen Therapy: None (Room air) Vital Signs: Temp: 36.4 C (97.6 F); Heart Rate: 100; Resp: 16; BP: 107/75; MAP (mmHg): 86 Net IO Since Admission: -21,298 mL [08/19/24 1641] Intake/Output Summary (Last 24 hours) at 08/19/2024 1641 Last data filed at 08/19/2024 1500 Gross per 24 hour Intake 650 ml Output 4350 ml Net -3700 ml Labs/Meds Reviewed: apixaban, 5 mg, Oral, BID [START ON 08/20/2024] bumetanide, 1 mg, Oral, BID calcium gluconate, 2,000 mg, IntraVENous, Once [START ON 08/20/2024] losartan, 50 mg, Oral, Daily magnesium oxide, 400 mg, Oral, BID magnesium sulfate, 2,000 mg, IntraVENous, Daily melatonin, 3 mg, Oral, Nightly metoprolol succinate XL, 25 mg, Oral, Daily potassium chloride 20 mEq in sodium chloride 0.9 % 200 mL IVPB, , IntraVENous, Once potassium chloride CR, 40 mEq, Oral, Daily spironolactone, 25 mg, Oral, Daily BMP: Recent Labs 08/17/24 0505 08/18/24 0359 08/19/24 0043 NA 139 137 136 K 3.3* 4.0 2.9* CL 97* 99 96* CO2 30* 25 28 BUN 32* 33* 33* CREATININE 1.53* 1.64* 1.64* GLUCOSE 102* 104* 150* CALCIUM 7.7* 7.8* 7.9* MG 1.3* 1.7 1.4* HEPATIC: Recent Labs 08/17/24 0505 08/18/24 0359 08/19/24 0043 AST 30 36* 33 ALT 56* 56* 54* BILITOT 1.6* 1.6* 1.6* ALKPHOS 188* 195* 191* Current Nutrition Therapies: Adult diet Regular; No Added Salt (3-4 gm); 2000 ml Current Oral Intake Average Meal Intake: 76-100% (every meal) Average Supplements Intake: Refusing to take, None Ordered Anthropometric Measures: Height: 185.4 cm (6' 1) Current Body Weight: 69.4 kg (153 lb) Weight Source: Standing Scale Admission Body Weight: 78.5 kg (173 lb) (08/10/24 - standing scale) Usual Body Weight: 75.8 kg (167 lb) (Per patient) % Weight Change (Calculated): 0 [place] Body Weight (lbs) (Calculated): 184 lbs [place] Body Weight (Kg) (Calculated): 84 kg % [place] Body Weight (Calculated): 90.8 % BMI (kg/m2) (Calculated): 20.2 Weight Adjustment For: No Adjustment BMI Categories: Normal Weight (BMI 18.5-24.9) Weights (last weight over last 50 encounters) 07/07/2024 1257 07/12/2024 1019 07/12/2024 1713 07/13/2024 0600 07/14/2024 0611 07/16/2024 0616 07/21/2024 0935 07/24/2024 1727 Weight Method: -- Stated Standing scale -- Standing scale -- -- Bed scale Weight: 80.5 kg (177 lb 6.4 oz) 77.1 kg (170 lb) 79.8 kg (176 lb) 80.2 kg (176 lb 12.8 oz) 81.5 kg (179 lb 9.6 oz) 81.5 kg (179 lb 10.8 oz) 85.8 kg (189 lb 3.2 oz) 88.9 kg (195 lb 15.8 oz) 07/25/2024 1105 07/26/2024 0500 07/27/2024 1821 07/28/2024 0539 07/30/2024 0500 08/04/2024 1002 08/09/2024 2114 08/10/2024 210 Weight Method: Standing scale -- Standing scale Standing scale Standing scale -- Stated Standing scale Weight: 83.9 kg (185 lb) 82.6 kg (182 lb) 76.4 kg (168 lb 6.4 oz) 75.8 kg (167 lb) 74 kg (163 lb 3.2 oz) 75.8 kg (167 lb) 74.4 kg (164 lb) 78.6 kg (173 lb 3.2 oz) 08/11/2024 0100 08/11/2024 1042 08/12/2024 0244 08/13/2024 0619 08/14/2024 0649 08/15/2024 0100 08/16/2024 0029 08/17/2024 0004 Weight Method: -- -- Standing scale Standing scale Standing scale Standing scale Standing scale Standing scale Weight: 78.7 kg (173 lb 8 oz) 78.5 kg (173 lb) 79.6 kg (175 lb 6.4 oz) 79 kg (174 lb 3.2 oz) 76.4 kg (168 lb 6.4 oz) 76 kg (167 lb 9.6 oz) 74.2 kg (163 lb 9.6 oz) 73.3 kg (161 lb 9.6 oz) 08/18/2024 0300 08/19/2024 0206 Weight Method: Standing scale Standing scale Weight: 72 kg (158 lb 12.8 oz) 69.8 kg (153 lb 12.8 oz) Nutrition Interventions: Food and/or Nutrient Delivery: Continue Current Diet and Mineral Supplement Nutrition Education/Counseling: Education declined Coordination of Nutrition Care: No recommendation at this time Goals: Previous Goal Met: Goal(s) Achieved Goals: Meet at least 75% of estimated needs, by next RD assessment Nutrition Monitoring and Evaluation: Behavioral-Environmental Outcomes: None Identified Food/Nutrient Intake Outcomes: None Identified Physical Signs/Symptoms Outcomes: None Identified Discharge Planning: Continue current diet Soraida Damon MS, RD, LD Contact: or Epic Chat (dial *[phone] from hospital phone) * Saul Briones MD - 08/19/2024 12:31 PM EST [facility] Progress Note Subjective/ 44 y.o. year old male who we are seeing in consultation for CKD stage 3b. Interval History Patient laying in bed, reports breathing feels improved Continues to endorse occasional non-productive cough Approx 4.75 L UOP yesterday LE edema improved Blood pressures soft. Denies any chest pain or orthopnea ROS Otherwise negative No interval changes to PFS. All interval notes/labs/imaging reviewed. Objective/ Vitals: 08/19/24 0206 08/19/24 0404 08/19/24 0721 08/19/24 1140 BP: 98/73 104/73 107/75 BP Location: Right arm Right arm Right arm Patient Position: Lying Sitting Sitting Pulse: 107 102 100 Resp: 18 16 16 Temp: 36.1 C (97 F) 36.2 C (97.1 F) 36.4 C (97.6 F) TempSrc: Temporal Temporal Temporal SpO2: 98% 98% 100% Weight: 69.8 kg (153 lb 12.8 oz) Height: 24HR INTAKE/OUTPUT: Intake/Output Summary (Last 24 hours) at 08/19/2024 1231 Last data filed at 08/19/2024 0800 Gross per 24 hour Intake 890 ml Output 4350 ml Net -3460 ml Physical Exam Constitutional: Appearance: Normal appearance. HENT: Head: Normocephalic and atraumatic. Mouth/Throat: Mouth: Mucous membranes are moist. Eyes: General: No scleral icterus. Neck: Vascular: JVD (Mild) present. Cardiovascular: Rate and Rhythm: Normal rate and regular rhythm. Pulmonary: Effort: Pulmonary effort is normal. Breath sounds: Normal breath sounds. Comments: Breathing comfortably on RA Abdominal: General: Bowel sounds are normal. Tenderness: There is no abdominal tenderness. Musculoskeletal: Cervical back: Neck supple. Right lower leg: No edema. Left lower leg: No edema. Skin: General: Skin is warm and dry. Neurological: Mental Status: He is alert and oriented to person, place, and time. Psychiatric: Mood and Affect: Mood normal. Thought Content: Thought content normal. Scheduled Meds:apixaban, 5 mg, Oral, BID [START ON 08/20/2024] bumetanide, 1 mg, Oral, BID calcium gluconate, 2,000 mg, IntraVENous, Once [START ON 08/20/2024] losartan, 50 mg, Oral, Daily magnesium oxide, 400 mg, Oral, BID magnesium sulfate, 2,000 mg, IntraVENous, Daily melatonin, 3 mg, Oral, Nightly metoprolol succinate XL, 25 mg, Oral, Daily potassium chloride CR, 40 mEq, Oral, Daily spironolactone, 25 mg, Oral, Daily Continuous Infusions: PRN Meds:.PRN medications: acetaminophen OR acetaminophen, ondansetron ODT OR ondansetron, polyethylene glycol (PEG) 3350 Data/ Recent Labs 08/17/24 0505 08/18/24 0359 08/19/24 0043 WBC 7.4 8.4 7.5 HGB 14.3 14.7 14.1 HCT 43.3 44.5 42.1 MCV 100.0* 101.8* 99.1* PLT 274 288 280 Recent Labs 08/17/24 0505 08/18/24 0359 08/19/24 0043 NA 139 137 136 K 3.3* 4.0 2.9* CL 97* 99 96* CO2 30* 25 28 GLUCOSE 102* 104* 150* MG 1.3* 1.7 1.4* BUN 32* 33* 33* CREATININE 1.53* 1.64* 1.64* Assessment/ SCHUYLER on CKD stage 3b N19.7, I13.10, N18.32 Ac on Chronic HFrEF I50.23 Hypokalemia E87.6 Hyponatremia: hypervolemic E87.1: resolved NAGMA E87.21: resolved HTN in CKD I12.9 Hepatic steatosis Plan/ -Renal function stable. cont to monitor trend, previous baseline of 1.7 -Recommend daily standing weights -Defer management of diuresis to cardiology -Recommend de-escalating diuresis if creatinine continues to rise on subsequent labs. -Blood pressures borderline low, on GDMT per cardiology: hydralazine 50 mg TID, Isordil 20 mg TID, and aldactone 25 mg/day -Consider reducing the dose of Hydralazine given soft BP (Increased risk of SCHUYLER). -Aggressive K supplement. Repeat labs to trend and supplement more prn. -Bicarb level fluctuating, agree with use of Diamox if Hco3 > 35 -Consider reducing diuretics given that the patient is noncompliant with all the recommendations and refusing additional IV potassium supplement. -Also p.o. supplement is being administered after great intervals since the patient is not ready for another dose. RN working with the patient. -Poses a high risk of further decline in potassium levels and life-threatening arrhythmias. -Calcium and magnesium being replaced. Cont to trend. Replace prn. -Monitor urine output closely, need strict I&Os -Rest of management per primary team Remains at very high risk of complications given severe hypokalemia (resolved and arrhythmias. Alsohas difficult to manage acute CHF exacerbation * Alonzo Aguilar MD - 08/19/2024 10:46 AM EST Hospitalist Progress Note 08/19/2024 Subjective: Admit Date: 08/09/2024 PCP: No primary care provider on file. Room#: W5-543/W5-347 A BRIEF HOSPITAL COURSE: Carlo Medina is a 44 y.o. male with history of HTN, HLD, CAD, NICM/HFrEF, CKD 3, PE, noncompliance who presented to ED on 08/09/24 for chest pain, SOB, abdominal pain, and lightheadedness. In ED, initial labs significant for BUN 35, Cr 1.94, ALP 194, AST/ALT 52/95, WBC 8.8 wnl, Hb 14.2, HS troponin 31, BNP 16,371. EKG showed sinus tachycardia. CXR showed enlarged cardiac silhouette similar to previous exam. Given IV morphine and zofran in ED. Admitted for further evaluation and management. Renal US showed findings compatible with medical renal disease similar to comparison, no significant hydronephrosis, and small amount of perihepatic fluid. Cardiology consulted/following, started GDMT, recommended swan guided therapy if patient does not improve with PO meds, but patient adamantly refusing swan. Nephrology consulted/following. Notified by TCC that patient's insurance is out of network, so called [facility] transfer line and discussed with hospitalist; patient accepted for transferto [facility] pending bed availability. Interval History: No acute overnight events. Cousin present at bedside this AM. Patient laying in bed, Aox3, on room air. States that he is doing better this AM. Reports improvement in SOB and leg swelling. Currently denies fever, chills, chest pain, SOB. During encounter, cousin sternly advised patient to follow recommendations of medical team while admitted. Case and plan discussed with patient and TCC. Questions answered. 08/17 Pt awake Sob stable No CP 08/18 Pt awake Walking in halls No CP Some issues with refusal of IV medications per staff 08/19 Declined [facility] tx yesterday PM No CP today Sob stable Adult diet Regular; No Added Salt (3-4 gm); 2000 ml 24HR INTAKE/OUTPUT: Intake/Output Summary (Last 24 hours) at 08/19/2024 1047 Last data filed at 08/19/2024 0404 Gross per 24 hour Intake 710 ml Output 4350 ml Net -3640 ml Past Medical History: Past Medical History: Diagnosis Date Acute HFrEF (heart failure with reduced ejection fraction) ([facility]) 06/13/2024 Acute kidney injury superimposed on CKD ([facility]) ([facility]) 07/03/2024 At risk for obstructive sleep apnea 05/31/2024 o/p sleep study recommended during admission CHF (congestive heart failure) ([facility]) CKD (chronic kidney disease) H/O noncompliance with medical treatment, presenting hazards to health 06/19/2024 HFrEF (heart failure with reduced ejection fraction) ([facility]) 04/28/2024 History of left bundle branch block (LBBB) 06/19/2024 Hypercholesteremia Hypertension Left against medical advice 08/04/2024 Noncompliance 06/19/2024 NSTEMI (non-ST elevated myocardial infarction) ([facility]) 07/11/2024 Potential for deficient knowledge of congestive heart failure 08/05/2024 Pulmonary embolism ([facility]) Pulmonary vascular congestion 04/28/2024 Sinus tachycardia 06/19/2024 LABS: CBC: Recent Labs 08/17/24 0505 02/35808/19/2442 WBC 7.4 8.4 7.5 RBC 4.33* 4.37* 4.25* HGB 14.3 14.7 14.1 HCT 43.3 44.5 42.1 MCV 100.0* 101.8* 99.1* RDW 13.2 12.8 12.7 PLT 274 288 280 BMP: Recent Labs 08/17/24 0505 08/18/2435808/19/2442 NA 139 137 136 K 3.3* 4.0 2.9* CL 97* 99 96* CO2 30* 25 28 BUN 32* 33* 33* CREATININE 1.53* 1.64* 1.64* GLUCOSE 102* 104* 150* CALCIUM 7.7* 7.8* 7.9* ANIONGAP 12 13 12 LIVER PROFILE: Recent Labs 08/17/24 05008/18/2435808/19/2442 AST 30 36* 33 ALT 56* 56* 54* BILITOT 1.6* 1.6* 1.6* ALKPHOS 188* 195* 191* PROT 5.8* 6.4 6.2* PT/INR: No results for input(s): PROTIME, INR in the last 72 hours. CARDIAC ENZYMES: No results for input(s): TROPONINI in the last 72 hours. Procalcitonin: No results found for: PROCAL COVID-19 PCR: No results for input(s): COVID19 in the last 72 hours. Objective: Vitals: BP 104/73 (BP Location: Right arm, Patient Position: Sitting) Pulse 102 Temp 36.2 C (97.1 F) (Temporal) Resp 16 Ht 6' 1 (1.854 m) Wt 153 lb 12.8 oz (69.8 kg) SpO2 98% BMI 20.29kg/m Pulse Ox: SpO2 Av.5 % Min: 97 % Max: 100 % Supplemental O2: O2 Flow Rate (L/min): 2 L/min Physical Exam Constitutional: General: He is not in acute distress. Appearance: He is not toxic-appearing. HENT: Head: Normocephalic. Eyes: Extraocular Movements: Extraocular movements intact. Cardiovascular: Rate and Rhythm: Regular rhythm. Tachycardia present. Pulmonary: Effort: Pulmonary effort is normal. No respiratory distress. Abdominal: General: Bowel sounds are normal. Palpations: Abdomen is soft. Musculoskeletal: Right lower leg: Edema present. Left lower leg: Edema present. Skin: General: Skin is warm and dry. Neurological: Mental Status: He is alert and oriented to person, place, and time. Medications: Scheduled PRN apixaban, 5 mg, Oral, BID calcium gluconate, 2,000 mg, IntraVENous, Once hydrALAZINE, 50 mg, Oral, TID isosorbide dinitrate, 20 mg, Oral, TID magnesium oxide, 400 mg, Oral, BID magnesium sulfate, 2,000 mg, IntraVENous, Daily magnesium sulfate, 2,000 mg, IntraVENous, Once melatonin, 3 mg, Oral, Nightly potassium chloride CR, 40 mEq, Oral, Daily spironolactone, 25 mg, Oral, Daily PRN medications: acetaminophen OR acetaminophen, ondansetron ODT OR ondansetron, polyethylene glycol (PEG) 3350 Continuous Assessment Acute, acute on chronic, unstable/uncontrolled chronic problems/diagnoses: # Chest pain, improved # Hx of biventricular dysfunction, acute on chronic HFrEF - TTE (06/15/24): LVEF 20%, severe globalhypokinesis, dilated RV with moderately reduced systolic fxn, 1+ AR, 2+ MR, moderately elevated RVSP. BNP 16,371 on admission. CXR showed enlarged cardiac silhouette similar to previous exam. TTE (08/11/24): LVEF 18%, 1+ AR, 2+ MR, 3+ TR, severely dilated LA, moderately dilated RA. BNP 16,371 (08/09)-> 10,757 (08/12) # Abdominal pain, improved # Lactic acidosis, resolved # Hyponatremia, improved # Hypokalemia - monitor and replete PRN # Transaminitis # Hyperbilirubinemia # Noncompliance with medical treatments Stable chronic problems affecting care, new non-acute diagnoses: # HTN # HLD # CAD # CKD 3 - Renal US (08/10/24) showed findings compatible with medical renal disease similar to comparison, no significant hydronephrosis, and small amount of perihepatic fluid. # Hx of PE - on Eliquis Plan As a result of the above findings & factors, the following mgmt was pursued: - Telemetry monitoring - Cardiology/HF following. Noted patient adamantly declined swan guided therapy as well as bumex gtt. On IV Bumex 3 mg TID, PO Hydralazine 50 mg TID and Isordil 20 mg TID, but patient has been intermittently refusing meds during hospitalization. Holding Coreg due to possible low output HF. Recs noted. - Discussed importance of adherence to recommended medications - Strict I/O's, daily weight - Nephrology following. Noted prognosis remains guarded given complex pathophysiology and patient not cooperative with recommended treatment plans. Recs noted. - Continue chronic medications as able. - TCC following for dispo planning. Notified by [facility] that patient's insurance is out of network and need to call [facility] [place] transfer line ([phone]) to see if we can get him transferred. Called [facility] [place] transfer line and discussed with hospitalist. Patient accepted for transfer to [facility] [place] pending bed availability which was noted could take awhile (accepting physician: Dr. Govea?). Replace Mg and Ca, K as able-- intermittently refuses IV replacement Discussed importance of IV E-lyte replacement in setting of his HF and NSVT Pt reports he understands his stay may not be covered if he refuses in network tranfers - am labs, replace lytes prn - delirium precautions: increase activity, schedule melatonin at bedtime, and limit nighttime disturbances - DVT prophylaxis: encourage ambulation and already anticoagulated Advance Directive: Full Code Anticipated Discharge - Date - TBD - Location - home - Pending the following - clinical course, building performance consultant recs Extended Emergency Contact Information Primary Emergency Contact: Kaitlin Hicks Mobile Relation: Significant Other Secondary Emergency Contact: Indira Medina Mobile Relation: Sister Alonzo Aguilar MD Division of Hospitalist Medicine [facility] * THOMAS Alvarez CNP - 08/19/2024 8:48 AM EST [facility] [place] [facility] [place] [facility] Cardiology /Electrophysiology Progress Note HPI / Interval History: Carlo Medina is a 44 year old male with a PMH significant for HFrEF, NICM, (LHC no CAD 05/2024), HTN, HLD, CKD III, DVTs on OAC), and poor health literacy/ poor medication/follow up compliance who presented to [facility] on 08/09/24 secondary to SOB, chest pain, and abdominal pain. EKG sinus tachycardia. Troponin negative. NT Pro BNP 82170. Cardiology consulted and Pt found to be in ADHF, cold on exam. RHC was recommended, Pt refused. This is his 9th admission for ADHF since 01/2024. Throughout admission he has been intermittently refusing medications and blood work. Today, Carlo states he's feeling good and has no complaints of pain, SOB at rest, orthopnea, CARRERA or dizziness. Assessment/Plan Acute on chronic HFrEF 2/2 NICM. Stage C - Presented in ADHF with volume overload in the setting of non compliance. - He has been aggressively diuresed for the past 10 days with loss of ~20lbs to a standing wt of 153lbs. On exam today he is warm and euvolemic. Already received a dose of IV bumex this morning so will resume his home bumex 1mg PO BID on 08/20. He is an NYHA class II - For GDMT: His Renal function has been stable and close to his baseline so will discontinue hydral/isordil and resume his home losartan 50mg daily. - Since he is now compensated will start Toprol XL 25mg daily and continue spironolactone 25mg daily. - Hold off on SGLT-2 for now - Strict I/Os, daily standing weights, 1.8L fluid restriction, 2gm Na diet - Previously prescribed a Lifevest but did not wear it DVT - Continue OAC SCHUYLER on CKDIII - Likely 2/2 CRS. Now improving with GDMT and back to his baseline. Hypokalemia Hypomagnesia - Refused IV replacement. PO replacement ordered Plan discussed with Dr. Coppola. HF will sign off. Cardiology Discharge/Sign-off Recommendations Cardiology medications to continue: [x] All cardiac medications as ordered currently Followup testing recommended as an outpatient: [x] Will be arranged by Cardiology BMP at first follow up if needed Cardiology followup: [x] Arranged as follows: Dr. Astudillo 09/02 at 11:30am If there are any questions/concerns, please contact the covering provider. If no answer by Secure Chat, please call the cardiology office to obtain appropriate covering [employer]WR[employer]/physician. Medications: apixaban, 5 mg, Oral, BID [START ON 08/20/2024] bumetanide, 1 mg, Oral, BID calcium gluconate, 2,000 mg, IntraVENous, Once [START ON 08/20/2024] losartan, 50 mg, Oral, Daily magnesium oxide, 400 mg, Oral, BID magnesium sulfate, 2,000 mg, IntraVENous, Daily melatonin, 3 mg, Oral, Nightly metoprolol succinate XL, 25 mg, Oral, Daily potassium chloride CR, 40 mEq, Oral, Daily spironolactone, 25 mg, Oral, Daily Infusion Medications: Physical Examination: Vitals: 08/18/24 2319 08/19/24 0206 08/19/24 0404 08/19/24 0721 BP: 92/74 98/73 104/73 BP Location: Right arm Right arm Right arm Patient Position: Lying Lying Sitting Pulse: 104 107 102 Resp: 18 18 16 Temp: 36.2 C (97.1 F) 36.1 C (97 F) 36.2 C (97.1 F) TempSrc: Temporal Temporal Temporal SpO2: 97% 98% 98% Weight: 153 lb 12.8 oz (69.8 kg) Height: Intake/Output Summary (Last 24 hours) at 08/19/2024 1132 Last data filed at 08/19/2024 0404 Gross per 24 hour Intake 710 ml Output 4350 ml Net -3640 ml Patient Vitals for the past 168 hrs: Weight Weight Method 08/19/24 0206 153 lb 12.8 oz (69.8 kg) Standing scale 08/18/24 0300 158 lb 12.8 oz (72 kg) Standing scale 08/17/24 0004 161 lb 9.6 oz (73.3 kg) Standing scale 08/16/24 0029 163 lb 9.6 oz (74.2 kg) Standing scale 08/15/24 0100 167 lb 9.6 oz (76 kg) Standing scale 08/14/24 0649 168 lb 6.4 oz (76.4 kg) Standing scale 08/13/24 0619 174 lb 3.2 oz (79 kg) Standing scale Physical Exam Constitutional: Appearance: Normal appearance. Neck: Vascular: No JVD. Cardiovascular: Rate and Rhythm: Regular rhythm. Tachycardia present. Pulses: Normal pulses. Heart sounds: Normal heart sounds. Pulmonary: Effort: Pulmonary effort is normal. Breath sounds: Normal breath sounds. Abdominal: General: Bowel sounds are normal. Palpations: Abdomen is soft. Musculoskeletal: Right lower leg: No edema. Left lower leg: No edema. Skin: General: Skin is warm and dry. Capillary Refill: Capillary refill takes less than 2 seconds. Neurological: General: No focal deficit present. Mental Status: He is alert and oriented to person, place, and time. Laboratory Tests: TROPONIN I, CONVENTIONAL SENSITIVITY TROPONIN I Date Value Ref Range Status 05/28/2024 0.037 (H) <0.034 ng/mL Final 05/28/2024 0.051 (H) <0.034 ng/mL Final 04/28/2024 0.032 <0.034 ng/mL Final 04/28/2024 0.025 <0.034 ng/mL Final 04/28/2024 0.020 <0.034 ng/mL Final TROPONIN I, HIGH SENSITIVITY Troponin HS Serial Baseline Date Value Ref Range Status 08/09/2024 31 <=35 ng/L Final Comment: In individuals presenting with symptoms > 2h, a baseline troponin <= 5 ng/L suggests acute cardiac injury is unlikely and further serial testing is generally not indicated. 08/05/2024 22 <=35 ng/L Final Comment: In individuals presenting with symptoms > 2h, a baseline troponin <= 5 ng/L suggests acute cardiac injury is unlikely and further serial testing is generally not indicated. 07/23/2024 33 <=35 ng/L Final 07/11/2024 218 (HH) <=35 ng/L Final 07/03/2024 39 (H) <=35 ng/L Final 2h Troponin HS (Serial 2nd Troponin) Date Value Ref Range Status 08/11/2024 22 <=35 ng/L Final Comment: 2h troponin (2nd troponin) samples collected between 1h 40 min and 2h and 20 min of the baseline collection time can be utilized to interpret delta troponins as per [employer] algorithms. Samples collected outside this timeframe need to be interpreted clinically. 08/05/2024 19 <=35 ng/L Final Comment: 2h troponin (2nd troponin) samples collected between 1h 40 min and 2h and 20 min of the baseline collection time can be utilized to interpret delta troponins as per [employer]ma algorithms. Samples collected outside this timeframe need to be interpreted clinically. Rising or falling troponin delta between 2 - 15 ng/L as compared to baseline value requires a 3rd serial troponin 07/23/2024 30 <=35 ng/L Final 07/11/2024 221 (HH) <=35 ng/L Final 07/03/2024 33 <=35 ng/L Final Absolute Delta (2nd - Baseline Troponin) Date Value Ref Range Status 07/11/2024 3 <=2 ng/L Final Comment: A troponin delta greater than or equal to 15 ng/L is significant for acute cardiac injury. Values less than 15 but greater than 2 are an intermediate change requiring a 3rd serial troponin to be drawn. Values less than or equal to 2 indicate acute cardiac injury is not likely, see external algorithmsfor further clinical guidance. 07/03/2024 -6 <=2 ng/L Final Comment: This specimen was collected more than 20 minutes away from the 2 hour target. Use of this delta with the 2 hour troponin algorithm is not recommended, individualized clinical assessment is needed. A troponin delta greater than or equal to 15 ng/L is significant for acute cardiac injury. Values less than 15 but greater than 2 are an intermediate change requiring a 3rd serial troponin to be drawn. Values less than or equal to 2 indicate acute cardiac injury is not likely, see external algorithmsfor further clinical guidance. 06/13/2024 3 <=2 ng/L Final Comment: This specimen was collected more than 20 minutes away from the 2 hour target. Use of this delta with the 2 hour troponin algorithm is not recommended, individualized clinical assessment is needed. A troponin delta greater than or equal to 15 ng/L is significant for acute cardiac injury. Values less than 15 but greater than 2 are an intermediate change requiring a 3rd serial troponin to be drawn. Values less than or equal to 2 indicate acute cardiac injury is not likely, see external algorithmsfor further clinical guidance. 4h Troponin HS (Serial 3rd Troponin) Date Value Ref Range Status 07/12/2024 218 (HH) <=35 ng/L Final 06/13/2024 49 (H) <=35 ng/L Final Absolute Delta (3rd - 2nd Troponin) Date Value Ref Range Status 07/12/2024 -3 <=2 ng/L Final Comment: A troponin delta greater than or equal to 15 ng/L is suggestive of acute cardiac injury. Values less than 15, see clinical guidance for ED and Inpatient algorithms. 06/13/2024 -4 <=2 ng/L Final Comment: This specimen was collected more than 20 minutes away from the 2 hour target. Use of this delta with the 2 hour troponin algorithm is not recommended, individualized clinical assessment is needed. A troponin delta greater than or equal to 15 ng/L is suggestive of acute cardiac injury. Values less than 15, see clinical guidance for ED and Inpatient algorithms. Recent Labs 08/17/24 05008/18/2435808/19/24 0043 NA 139 137 136 K 3.3* 4.0 2.9* CL 97* 99 96* CO2 30* 25 28 BUN 32* 33* 33* CREATININE 1.53* 1.64* 1.64* Recent Labs 08/17/2450408/18/2435808/19/2442 WBC 7.4 8.4 7.5 HGB 14.3 14.7 14.1 HCT 43.3 44.5 42.1 MCV 100.0* 101.8* 99.1* PLT 274 288 280 No results for input(s): BNP in the last 72 hours. No results for input(s): TRIG, HDL, LDLCALC, CHOL in the last 72 hours. No results found for: LDLCHOLESTER Lab Results Component Value Date TSH 3.18 07/23/2024 EF BP Date Value Ref Range Status 08/11/2024 18 (A) 55 - 100 % Final 08/09/24 TRANSTHORACIC ECHOCARDIOGRAM (TTE) COMPLETE (CONTRAST/BUBBLE/3D PRN) 08/11/2024 12:41 PM (Final) Interpretation Summary Left Ventricle: Left ventricle is severely dilated. Normal wall thickness. Severely reduced left ventricular systolic function. EF by 2D Simpsons Biplane is 18%. Global longitudinal strain is reducedwith a value of -4.1%. Global hypokinesis present. Right Ventricle: Not well visualized. Right ventricle is dilated. Low normal systolic function. Aortic Valve: Mild (1+) regurgitation. Mitral Valve: Moderate (2+) regurgitation. Tricuspid Valve: Moderately severe (3+) regurgitation. Left Atrium: Left atrium is severely dilated. Right Atrium: Right atrium is moderately dilated. Pericardium: Trivial pericardial effusion present. IVC/SVC: IVC diameter is dilated and decreases less than 50% during inspiration; therefore the estimated right atrial pressure is elevated (~15 mmHg). Signed by: Ana Singletary on 08/11/2024 12:41 PM Other reports reviewed: Cardiac Tests: Telemetry findings reviewed: ST BP Date Value Ref Range Status 08/11/2024 18 (A) 55 - 100 % Final THOMAS Chapa CNP Date Of Service 08/19/2024 * Alonzo Aguilar MD - 08/18/2024 10:50 AM EST Hospitalist Progress Note 08/18/2024 Subjective: Admit Date: 08/09/2024 PCP: No primary care provider on file. Room#: W5-543/W5-543 A BRIEF HOSPITAL COURSE: Carlo Medina is a 44 y.o. male with history of HTN, HLD, CAD, NICM/HFrEF, CKD 3, PE, noncompliance who presented to ED on 08/09/24 for chest pain, SOB, abdominal pain, and lightheadedness. In ED, initial labs significant for BUN 35, Cr 1.94, ALP 194, AST/ALT 52/95, WBC 8.8 wnl, Hb 14.2, HS troponin 31, BNP 16,371. EKG showed sinus tachycardia. CXR showed enlarged cardiac silhouette similar to previous exam. Given IV morphine and zofran in ED. Admitted for further evaluation and management. Renal US showed findings compatible with medical renal disease similar to comparison, no significant hydronephrosis, and small amount of perihepatic fluid. Cardiology consulted/following, started GDMT, recommended swan guided therapy if patient does not improve with PO meds, but patient adamantly refusing swan. Nephrology consulted/following. Notified by [facility] that patient's insurance is out of network, so called [facility] transfer line and discussed with hospitalist; patient accepted for transferto [facility] pending bed availability. Interval History: No acute overnight events. Cousin present at bedside this AM. Patient laying in bed, Aox3, on room air. States that he is doing better this AM. Reports improvement in SOB and leg swelling. Currently denies fever, chills, chest pain, SOB. During encounter, cousin sternly advised patient to follow recommendations of medical team while admitted. Case and plan discussed with patient and TCC. Questions answered. 08/17 Pt awake Sob stable No CP 08/18 Pt awake Walking in halls No CP Some issues with refusal of IV medications per staff Adult diet Regular; No Added Salt (3-4 gm); 2000 ml 24HR INTAKE/OUTPUT: Intake/Output Summary (Last 24 hours) at 08/18/2024 1050 Last data filed at 08/18/2024 0802 Gross per 24 hour Intake 960 ml Output 5300 ml Net -4340 ml Past Medical History: Past Medical History: Diagnosis Date Acute HFrEF (heart failure with reduced ejection fraction) ([facility]) 06/13/2024 Acute kidney injury superimposed on CKD ([facility]) ([facility]) 07/03/2024 At risk for obstructive sleep apnea 05/31/2024 o/p sleep study recommended during admission CHF (congestive heart failure) ([facility]) CKD (chronic kidney disease) H/O noncompliance with medical treatment, presenting hazards to health 06/19/2024 HFrEF (heart failure with reduced ejection fraction) ([facility]) 04/28/2024 History of left bundle branch block (LBBB) 06/19/2024 Hypercholesteremia Hypertension Left against medical advice 08/04/2024 Noncompliance 06/19/2024 NSTEMI (non-ST elevated myocardial infarction) ([facility]) 07/11/2024 Potential for deficient knowledge of congestive heart failure 08/05/2024 Pulmonary embolism ([facility]) Pulmonary vascular congestion 04/28/2024 Sinus tachycardia 06/19/2024 LABS: CBC: Recent Labs 08/16/24 0859 08/17/24 0505 08/18/24 0359 WBC 6.2 7.4 8.4 RBC 3.95* 4.33* 4.37* HGB 13.2 14.3 14.7 HCT 39.6* 43.3 44.5 MCV 100.3* 100.0* 101.8* RDW 13.2 13.2 12.8 PLT 242 274 288 BMP: Recent Labs 08/16/24 0859 08/17/24 0505 08/18/24 0359 NA 141 139 137 K 3.2* 3.3* 4.0 CL 100 97* 99 CO2 27 30* 25 BUN 33* 32* 33* CREATININE 1.81* 1.53* 1.64* GLUCOSE 190* 102* 104* CALCIUM 7.8* 7.7* 7.8* ANIONGAP 14* 12 13 LIVER PROFILE: Recent Labs 08/16/24 0859 08/17/24 0505 08/18/24 0359 AST 35* 30 36* ALT 64* 56* 56* BILITOT 1.8* 1.6* 1.6* ALKPHOS 193* 188* 195* PROT 5.6* 5.8* 6.4 PT/INR: No results for input(s): PROTIME, INR in the last 72 hours. CARDIAC ENZYMES: No results for input(s): TROPONINI in the last 72 hours. Procalcitonin: No results found for: PROCAL COVID-19 PCR: No results for input(s): COVID19 in the last 72 hours. Objective: Vitals: BP 99/69 (BP Location: Right arm, Patient Position: Lying) Pulse 98 Temp 36.2 C (97.2 F) (Temporal) Resp 16 Ht 6' 1 (1.854 m) Wt 158 lb 12.8 oz (72 kg) SpO2 99% BMI 20.95 kg/m Pulse Ox: SpO2 Av.2 % Min: 94 % Max: 99 % Supplemental O2: O2 Flow Rate (L/min): 2 L/min Physical Exam Constitutional: General: He is not in acute distress. Appearance: He is not toxic-appearing. HENT: Head: Normocephalic. Eyes: Extraocular Movements: Extraocular movements intact. Cardiovascular: Rate and Rhythm: Regular rhythm. Tachycardia present. Pulmonary: Effort: Pulmonary effort is normal. No respiratory distress. Abdominal: General: Bowel sounds are normal. Palpations: Abdomen is soft. Musculoskeletal: Right lower leg: Edema present. Left lower leg: Edema present. Skin: General: Skin is warm and dry. Neurological: Mental Status: He is alert and oriented to person, place, and time. Medications: Scheduled PRN apixaban, 5 mg, Oral, BID bumetanide, 3 mg, IntraVENous, TID AC calcium gluconate, 2,000 mg, IntraVENous, Once hydrALAZINE, 50 mg, Oral, TID isosorbide dinitrate, 20 mg, Oral, TID magnesium oxide, 400 mg, Oral, BID magnesium sulfate, 2,000 mg, IntraVENous, Daily magnesium sulfate, 2,000 mg, IntraVENous, Once melatonin, 3 mg, Oral, Nightly potassium chloride, 40 mEq, Oral, Once potassium chloride CR, 40 mEq, Oral, Daily spironolactone, 25 mg, Oral, Daily PRN medications: acetaminophen OR acetaminophen, ondansetron ODT OR ondansetron, polyethylene glycol (PEG) 3350 Continuous Assessment Acute, acute on chronic, unstable/uncontrolled chronic problems/diagnoses: # Chest pain, improved # Hx of biventricular dysfunction, acute on chronic HFrEF - TTE (06/15/24): LVEF 20%, severe globalhypokinesis, dilated RV with moderately reduced systolic fxn, 1+ AR, 2+ MR, moderately elevated RVSP. BNP 16,371 on admission. CXR showed enlarged cardiac silhouette similar to previous exam. TTE (08/11/24): LVEF 18%, 1+ AR, 2+ MR, 3+ TR, severely dilated LA, moderately dilated RA. BNP 16,371 (08/09)-> 10,757 (08/12) # Abdominal pain, improved # Lactic acidosis, resolved # Hyponatremia, improved # Hypokalemia - monitor and replete PRN # Transaminitis # Hyperbilirubinemia # Noncompliance with medical treatments Stable chronic problems affecting care, new non-acute diagnoses: # HTN # HLD # CAD # CKD 3 - Renal US (08/10/24) showed findings compatible with medical renal disease similar to comparison, no significant hydronephrosis, and small amount of perihepatic fluid. # Hx of PE - on Eliquis Plan As a result of the above findings & factors, the following mgmt was pursued: - Telemetry monitoring - Cardiology/HF following. Noted patient adamantly declined swan guided therapy as well as bumex gtt. On IV Bumex 3 mg TID, PO Hydralazine 50 mg TID and Isordil 20 mg TID, but patient has been intermittently refusing meds during hospitalization. Holding Coreg due to possible low output HF. Recs noted. - Discussed importance of adherence to recommended medications - Strict I/O's, daily weight - Nephrology following. Noted prognosis remains guarded given complex pathophysiology and patient not cooperative with recommended treatment plans. Recs noted. - Continue chronic medications as able. - TCC following for dispo planning. Notified by [facility] that patient's insurance is out of network and need to call [facility] [place] transfer line ([phone]) to see if we can get him transferred. Called [facility] [place] transfer line and discussed with hospitalist. Patient accepted for transfer to [facility] [place] pending bed availability which was noted could take awhile (accepting physician: Dr. Govea?). Replace Mg and Ca as able Discussed importance of IV E-lyte replacement in setting of his HF and NSVT - am labs, replace lytes prn - delirium precautions: increase activity, schedule melatonin at bedtime, and limit nighttime disturbances - DVT prophylaxis: encourage ambulation and already anticoagulated Advance Directive: Full Code Anticipated Discharge - Date - TBD - Location - TBD - patient accepted for transfer to [facility] [place] pending bed availability as patient out of network with insurance here - Pending the following - clinical course, building performance consultant recs Extended Emergency Contact Information Primary Emergency Contact: Kaitlin Hicks Mobile Relation: Significant Other Secondary Emergency Contact: Indira Medina Mobile Relation: Sister Alonzo Aguilar MD Division of Hospitalist Medicine [facility] * Selena Carlisle PA-C - 08/18/2024 10:44 AM EST [facility] Progress Note Subjective/ 44 y.o. year old male who we are seeing in consultation for CKD stage 3b. Interval History Patient laying in bed, reports breathing feels improved Continues to endorse occasional non-productive cough Approx 5 L UOP yesterday LE edema improved Blood pressures noted, SBP down into the 90's this morning Denies any chest pain or orthopnea ROS Otherwise negative No interval changes to [facility]. All interval notes/labs/imaging reviewed. Objective/ Vitals: 08/17/24 2329 08/18/24 0300 08/18/24 0349 08/18/24 0802 BP: 108/80 99/69 BP Location: Right arm Right arm Patient Position: Lying Pulse: 97 109 98 Resp: 17 16 Temp: 36.3 C (97.4 F) 36.2 C (97.2 F) TempSrc: Temporal Temporal SpO2: 98% 94% 99% Weight: 72 kg (158 lb 12.8 oz) Height: 24HR INTAKE/OUTPUT: Intake/Output Summary (Last 24 hours) at 08/18/2024 1044 Last data filed at 08/18/2024 0802 Gross per 24 hour Intake 960 ml Output 5300 ml Net -4340 ml Physical Exam Constitutional: Appearance: Normal appearance. HENT: Head: Normocephalic and atraumatic. Mouth/Throat: Mouth: Mucous membranes are moist. Eyes: General: No scleral icterus. Neck: Vascular: JVD (Mild) present. Cardiovascular: Rate and Rhythm: Normal rate and regular rhythm. Pulmonary: Effort: Pulmonary effort is normal. Breath sounds: Normal breath sounds. Comments: Breathing comfortably on RA Abdominal: General: Bowel sounds are normal. Tenderness: There is no abdominal tenderness. Musculoskeletal: Cervical back: Neck supple. Right lower leg: No edema. Left lower leg: No edema. Skin: General: Skin is warm and dry. Neurological: Mental Status: He is alert and oriented to person, place, and time. Psychiatric: Mood and Affect: Mood normal. Thought Content: Thought content normal. Scheduled Meds:apixaban, 5 mg, Oral, BID bumetanide, 3 mg, IntraVENous, TID AC calcium gluconate, 2,000 mg, IntraVENous, Once hydrALAZINE, 50 mg, Oral, TID isosorbide dinitrate, 20 mg, Oral, TID magnesium oxide, 400 mg, Oral, BID magnesium sulfate, 2,000 mg, IntraVENous, Daily magnesium sulfate, 2,000 mg, IntraVENous, Once melatonin, 3 mg, Oral, Nightly potassium chloride, 40 mEq, Oral, Once potassium chloride CR, 40 mEq, Oral, Daily spironolactone, 25 mg, Oral, Daily Continuous Infusions: PRN Meds:.PRN medications: acetaminophen OR acetaminophen, ondansetron ODT OR ondansetron, polyethylene glycol (PEG) 3350 Data/ Recent Labs 08/16/24 0859 08/17/24 0505 08/18/24 0359 WBC 6.2 7.4 8.4 HGB 13.2 14.3 14.7 HCT 39.6* 43.3 44.5 MCV 100.3* 100.0* 101.8* PLT 242 274 288 Recent Labs 08/16/24 0859 08/17/24 0505 08/18/24 0359 NA 141 139 137 K 3.2* 3.3* 4.0 CL 100 97* 99 CO2 27 30* 25 GLUCOSE 190* 102* 104* MG -- 1.3* 1.7 BUN 33* 32* 33* CREATININE 1.81* 1.53* 1.64* Assessment/ SCHUYLER on CKD stage 3b N19.7, I13.10, N18.32 Hyponatremia: hypervolemic E87.1: resolved Hypokalemia E87.6: resolved NAGMA E87.21: resolved Chronic HFrEF I50.22 HTN in CKD I12.9 Hepatic steatosis Plan/ -Renal function fluctuating with addition of aldactone, cont to monitor trend, previous baseline of1.7, cont to trend to establish baseline -Recommend daily standing weights -Defer management of diuresis to cardiology: remains on IV bumex 3 mg TID -Recommend de-escalating diuresis if creatinine continues to rise on subsequent labs, reasonable tocontinue for today given JVD elevation on exam -Blood pressures borderline low, on GDMT per cardiology: hydralazine 50 mg TID, Isordil 20 mg TID, and aldactone 25 mg/day -C/w 40 mEq po kcl daily while receiving aggressive IV diuresis -Bicarb level fluctuating, agree with use of Diamox if Hco3 > 35 -Calcium and magnesium being replaced IV -Monitor urine output closely, need strict I&Os -Rest of management per primary team We will follow. Please do not hesitate to call with any questions or concerns. DAVID Bajwa, BRONSON [facility] Office This note is not finalized until authorized by Attending physician. Cosigned by Saul Briones MD at 08/18/2024 2:45 PM EST Associated attestation - Saul Briones MD - 08/18/2024 2:45 PM EST Notes reviewed and plan discussed with the PA. Agree with above note except Any variance is noted below. Saul Briones MD [facility] [phone] * Sepideh Townsend, THOMAS - WHITING MACHINE OPERATOR - 08/18/2024 8:20 AM EST [facility] Cardiology /Electrophysiology Progress Note HPI / Interval History: Carlo Medina is a 44 year old male with a PMH significant for HFrEF, NICM, ([facility] no CAD 05/2024), HTN, HLD, CKD III, DVTs on OAC), and poor health literacy/ poor medication/follow up compliance who presented to [facility] on 08/09/24 secondary to SOB, chest pain, and abdominal pain. EKG sinus tachycardia. Troponin negative. NT Pro BNP 52377. Cardiology consulted and Pt found to be in ADHF, cold on exam. RHC was recommended, Pt refused. This is his 9th admission for ADHF since 01/2024. Throughout admission he has been intermittently refusing medications and blood work. Today, Carlo states he's feeling better but worried about all the weight he's losing. Denies any SOB at rest, CARRERA, palpitations, dizziness or feeling lightheaded. Assessment/Plan Acute on chronic HFrEF 2/2 NICM. Stage C - Presented in ADHF with volume overload in the setting of non compliance. - He continues to diurese robustly on bumex 3mg IV TID. He is down ~18lbs. On exam today he is warmwith elevated JVP. Will need continued IV diuresis for another 1-2 days. He is an NYHA class II - For GDMT: Continue hydralazine 50mg TID and isordil 20mg TID, spironolactone 25mg daily. - Continue to hold BB until well compensated. - Hold off on SGLT-2 for now - Strict I/Os, daily standing weights, 1.8L fluid restriction, 2gm Na diet DVT - Continue OAC SCHUYLER on CKDIII - Likely 2/2 CRS. Now improving with GDMT and aggressive IV diuresis. Hypokalemia Hypomagnesia - Ordered replacement. Plan discussed with Dr. Varian. HF will continue to follow. [facility] Medications: apixaban, 5 mg, Oral, BID bumetanide, 3 mg, IntraVENous, TID AC calcium gluconate, 2,000 mg, IntraVENous, Once hydrALAZINE, 50 mg, Oral, TID isosorbide dinitrate, 20 mg, Oral, TID magnesium oxide, 400 mg, Oral, BID magnesium sulfate, 2,000 mg, IntraVENous, Daily magnesium sulfate, 2,000 mg, IntraVENous, Once melatonin, 3 mg, Oral, Nightly potassium chloride, 40 mEq, Oral, Once potassium chloride CR, 40 mEq, Oral, Daily spironolactone, 25 mg, Oral, Daily Infusion Medications: Physical Examination: Vitals: 08/18/24 0300 08/18/24 0349 08/18/24 0802 08/18/24 1123 BP: 108/80 99/69 114/80 BP Location: Right arm Right arm Right arm Patient Position: Lying Sitting Pulse: 109 98 70 Resp: 17 16 16 Temp: 36.3 C (97.4 F) 36.2 C (97.2 F) 36.3 C (97.3 F) TempSrc: Temporal Temporal Temporal SpO2: 94% 99% 100% Weight: 158 lb 12.8 oz (72 kg) Height: Intake/Output Summary (Last 24 hours) at 08/18/2024 1453 Last data filed at 08/18/2024 1315 Gross per 24 hour Intake 1200 ml Output 6300 ml Net -5100 ml Patient Vitals for the past 168 hrs: Weight Weight Method 08/18/24 0300 158 lb 12.8 oz (72 kg) Standing scale 08/17/24 0004 161 lb 9.6 oz (73.3 kg) Standing scale 08/16/24 0029 163 lb 9.6 oz (74.2 kg) Standing scale 08/15/24 0100 167 lb 9.6 oz (76 kg) Standing scale 08/14/24 0649 168 lb 6.4 oz (76.4 kg) Standing scale 08/13/24 0619 174 lb 3.2 oz (79 kg) Standing scale 08/12/24 0244 175 lb 6.4 oz (79.6 kg) Standing scale Physical Exam Constitutional: Appearance: Normal appearance. Neck: Vascular: JVD present. Cardiovascular: Rate and Rhythm: Regular rhythm. Tachycardia present. Pulses: Normal pulses. Heart sounds: Normal heart sounds. Pulmonary: Effort: Pulmonary effort is normal. Breath sounds: Normal breath sounds. Abdominal: General: Bowel sounds are normal. Palpations: Abdomen is soft. Musculoskeletal: Right lower leg: No edema. Left lower leg: No edema. Skin: General: Skin is warm and dry. Capillary Refill: Capillary refill takes less than 2 seconds. Neurological: General: No focal deficit present. Mental Status: He is alert and oriented to person, place, and time. Laboratory Tests: TROPONIN I, CONVENTIONAL SENSITIVITY TROPONIN I Date Value Ref Range Status 05/28/2024 0.037 (H) <0.034 ng/mL Final 05/28/2024 0.051 (H) <0.034 ng/mL Final 04/28/2024 0.032 <0.034 ng/mL Final 04/28/2024 0.025 <0.034 ng/mL Final 04/28/2024 0.020 <0.034 ng/mL Final TROPONIN I, HIGH SENSITIVITY Troponin HS Serial Baseline Date Value Ref Range Status 08/09/2024 31 <=35 ng/L Final Comment: In individuals presenting with symptoms > 2h, a baseline troponin <= 5 ng/L suggests acute cardiac injury is unlikely and further serial testing is generally not indicated. 08/05/2024 22 <=35 ng/L Final Comment: In individuals presenting with symptoms > 2h, a baseline troponin <= 5 ng/L suggests acute cardiac injury is unlikely and further serial testing is generally not indicated. 07/23/2024 33 <=35 ng/L Final 07/11/2024 218 (HH) <=35 ng/L Final 07/03/2024 39 (H) <=35 ng/L Final 2h Troponin HS (Serial 2nd Troponin) Date Value Ref Range Status 08/11/2024 22 <=35 ng/L Final Comment: 2h troponin (2nd troponin) samples collected between 1h 40 min and 2h and 20 min of the baseline collection time can be utilized to interpret delta troponins as per [employer] algorithms. Samples collected outside this timeframe need to be interpreted clinically. 08/05/2024 19 <=35 ng/L Final Comment: 2h troponin (2nd troponin) samples collected between 1h 40 min and 2h and 20 min of the baseline collection time can be utilized to interpret delta troponins as per [employer] algorithms. Samples collected outside this timeframe need to be interpreted clinically. Rising or falling troponin delta between 2 - 15 ng/L as compared to baseline value requires a 3rd serial troponin 07/23/2024 30 <=35 ng/L Final 07/11/2024 221 (HH) <=35 ng/L Final 07/03/2024 33 <=35 ng/L Final Absolute Delta (2nd - Baseline Troponin) Date Value Ref Range Status 07/11/2024 3 <=2 ng/L Final Comment: A troponin delta greater than or equal to 15 ng/L is significant for acute cardiac injury. Values less than 15 but greater than 2 are an intermediate change requiring a 3rd serial troponin to be drawn. Values less than or equal to 2 indicate acute cardiac injury is not likely, see external algorithmsfor further clinical guidance. 07/03/2024 -6 <=2 ng/L Final Comment: This specimen was collected more than 20 minutes away from the 2 hour target. Use of this delta with the 2 hour troponin algorithm is not recommended, individualized clinical assessment is needed. A troponin delta greater than or equal to 15 ng/L is significant for acute cardiac injury. Values less than 15 but greater than 2 are an intermediate change requiring a 3rd serial troponin to be drawn. Values less than or equal to 2 indicate acute cardiac injury is not likely, see external algorithmsfor further clinical guidance. 06/13/2024 3 <=2 ng/L Final Comment: This specimen was collected more than 20 minutes away from the 2 hour target. Use of this delta with the 2 hour troponin algorithm is not recommended, individualized clinical assessment is needed. A troponin delta greater than or equal to 15 ng/L is significant for acute cardiac injury. Values less than 15 but greater than 2 are an intermediate change requiring a 3rd serial troponin to be drawn. Values less than or equal to 2 indicate acute cardiac injury is not likely, see external algorithmsfor further clinical guidance. 4h Troponin HS (Serial 3rd Troponin) Date Value Ref Range Status 07/12/2024 218 (HH) <=35 ng/L Final 06/13/2024 49 (H) <=35 ng/L Final Absolute Delta (3rd - 2nd Troponin) Date Value Ref Range Status 07/12/2024 -3 <=2 ng/L Final Comment: A troponin delta greater than or equal to 15 ng/L is suggestive of acute cardiac injury. Values less than 15, see clinical guidance for ED and Inpatient algorithms. 06/13/2024 -4 <=2 ng/L Final Comment: This specimen was collected more than 20 minutes away from the 2 hour target. Use of this delta with the 2 hour troponin algorithm is not recommended, individualized clinical assessment is needed. A troponin delta greater than or equal to 15 ng/L is suggestive of acute cardiac injury. Values less than 15, see clinical guidance for ED and Inpatient algorithms. Recent Labs 08/16/24 0859 08/17/24 0505 08/18/24 0359 NA 141 139 137 K 3.2* 3.3* 4.0 CL 100 97* 99 CO2 27 30* 25 BUN 33* 32* 33* CREATININE 1.81* 1.53* 1.64* Recent Labs 08/16/24 0859 08/17/24 0505 08/18/24 0359 WBC 6.2 7.4 8.4 HGB 13.2 14.3 14.7 HCT 39.6* 43.3 44.5 MCV 100.3* 100.0* 101.8* PLT 242 274 288 No results for input(s): BNP in the last 72 hours. No results for input(s): TRIG, HDL, LDLCALC, CHOL in the last 72 hours. No results found for: LDLCHOLESTER Lab Results Component Value Date TSH 3.18 07/23/2024 EF BP Date Value Ref Range Status 08/11/2024 18 (A) 55 - 100 % Final 08/09/24 TRANSTHORACIC ECHOCARDIOGRAM (TTE) COMPLETE (CONTRAST/BUBBLE/3D PRN) 08/11/2024 12:41 PM (Final) Interpretation Summary Left Ventricle: Left ventricle is severely dilated. Normal wall thickness. Severely reduced left ventricular systolic function. EF by 2D Simpsons Biplane is 18%. Global longitudinal strain is reducedwith a value of -4.1%. Global hypokinesis present. Right Ventricle: Not well visualized. Right ventricle is dilated. Low normal systolic function. Aortic Valve: Mild (1+) regurgitation. Mitral Valve: Moderate (2+) regurgitation. Tricuspid Valve: Moderately severe (3+) regurgitation. Left Atrium: Left atrium is severely dilated. Right Atrium: Right atrium is moderately dilated. Pericardium: Trivial pericardial effusion present. IVC/SVC: IVC diameter is dilated and decreases less than 50% during inspiration; therefore the estimated right atrial pressure is elevated (~15 mmHg). Signed by: Ana Singletary on 08/11/2024 12:41 PM Other reports reviewed: Cardiac Tests: Telemetry findings reviewed: ST BP Date Value Ref Range Status 08/11/2024 18 (A) 55 - 100 % Final THOMAS Chapa CNP Date Of Service 08/18/2024 * Alonzo Aguilar MD - 08/17/2024 11:58 AM EST Hospitalist Progress Note 08/17/2024 Subjective: Admit Date: 08/09/2024 PCP: No primary care provider on file. [id number] A BRIEF HOSPITAL COURSE: Carlo Medina is a 44 y.o. male with history of HTN, HLD, CAD, NICM/HFrEF, CKD 3, PE, noncompliance who presented to ED on 08/09/24 for chest pain, SOB, abdominal pain, and lightheadedness. In ED, initial labs significant for BUN 35, Cr 1.94, ALP 194, AST/ALT 52/95, WBC 8.8 wnl, Hb 14.2, HS troponin 31, BNP 16,371. EKG showed sinus tachycardia. CXR showed enlarged cardiac silhouette similar to previous exam. Given IV morphine and zofran in ED. Admitted for further evaluation and management. Renal US showed findings compatible with medical renal disease similar to comparison, no significant hydronephrosis, and small amount of perihepatic fluid. Cardiology consulted/following, started GDMT, recommended swan guided therapy if patient does not improve with PO meds, but patient adamantly refusing swan. Nephrology consulted/following. Notified by [facility] that patient's insurance is out of network, so called [facility] transfer line and discussed with hospitalist; patient accepted for transferto [facility] pending bed availability. Interval History: No acute overnight events. Cousin present at bedside this AM. Patient laying in bed, Aox3, on room air. States that he is doing better this AM. Reports improvement in SOB and leg swelling. Currently denies fever, chills, chest pain, SOB. During encounter, cousin cayetanophillip advised patient to follow recommendations of medical team while admitted. Case and plan discussed with patient and TCC. Questions answered. 08/17 Pt awake Sob stable No CP Adult diet Regular; No Added Salt (3-4 gm); 2000 ml 24HR INTAKE/OUTPUT: Intake/Output Summary (Last 24 hours) at 08/17/2024 1159 Last data filed at 08/17/2024 0719 Gross per 24 hour Intake 360 ml Output 4150 ml Net -3790 ml Past Medical History: Past Medical History: Diagnosis Date Acute HFrEF (heart failure with reduced ejection fraction) ([facility]) 06/13/2024 Acute kidney injury superimposed on CKD ([facility]) ([facility]) 07/03/2024 At risk for obstructive sleep apnea 05/31/2024 o/p sleep study recommended during admission CHF (congestive heart failure) ([facility]) CKD (chronic kidney disease) H/O noncompliance with medical treatment, presenting hazards to health 06/19/2024 HFrEF (heart failure with reduced ejection fraction) ([facility]) 04/28/2024 History of left bundle branch block (LBBB) 06/19/2024 Hypercholesteremia Hypertension Left against medical advice 08/04/2024 Noncompliance 06/19/2024 NSTEMI (non-ST elevated myocardial infarction) ([facility]) 07/11/2024 Potential for deficient knowledge of congestive heart failure 08/05/2024 Pulmonary embolism ([facility]) Pulmonary vascular congestion 04/28/2024 Sinus tachycardia 06/19/2024 LABS: CBC: Recent Labs 08/15/24 0630 08/16/24 0859 08/17/24 0505 WBC 8.1 6.2 7.4 RBC 4.38* 3.95* 4.33* HGB 14.7 13.2 14.3 HCT 43.5 39.6* 43.3 MCV 99.3* 100.3* 100.0* RDW 13.3 13.2 13.2 PLT 258 242 274 BMP: Recent Labs 08/15/24 0630 08/16/24 0859 08/17/24 0505 NA 137 141 139 K 3.6 3.2* 3.3* CL 102 100 97* CO2 24 27 30* BUN 37* 33* 32* CREATININE 1.94* 1.81* 1.53* GLUCOSE 104* 190* 102* CALCIUM 8.3* 7.8* 7.7* ANIONGAP 11 14* 12 LIVER PROFILE: Recent Labs 08/15/24 0630 08/16/24 0859 08/17/24 0505 AST 32 35* 30 ALT 69* 64* 56* BILITOT 1.9* 1.8* 1.6* ALKPHOS 223* 193* 188* PROT 6.0* 5.6* 5.8* PT/INR: No results for input(s): PROTIME, INR in the last 72 hours. CARDIAC ENZYMES: No results for input(s): TROPONINI in the last 72 hours. Procalcitonin: No results found for: PROCAL COVID-19 PCR: No results for input(s): COVID19 in the last 72 hours. Objective: Vitals: BP 104/71 (BP Location: Left arm, Patient Position: Lying) Pulse 103 Temp 36.3 C (97.3 F) (Temporal) Resp 20 Ht 6' 1 (1.854 m) Wt 161 lb 9.6 oz (73.3 kg) SpO2 97% BMI 21.32 kg/m Pulse Ox: SpO2 Av.3 % Min: 96 % Max: 99 % Supplemental O2: O2 Flow Rate (L/min): 2 L/min Physical Exam Constitutional: General: He is not in acute distress. Appearance: He is not toxic-appearing. HENT: Head: Normocephalic. Eyes: Extraocular Movements: Extraocular movements intact. Cardiovascular: Rate and Rhythm: Regular rhythm. Tachycardia present. Pulmonary: Effort: Pulmonary effort is normal. No respiratory distress. Abdominal: General: Bowel sounds are normal. Palpations: Abdomen is soft. Musculoskeletal: Right lower leg: Edema present. Left lower leg: Edema present. Skin: General: Skin is warm and dry. Neurological: Mental Status: He is alert and oriented to person, place, and time. Medications: Scheduled PRN apixaban, 5 mg, Oral, BID bumetanide, 3 mg, IntraVENous, TID AC hydrALAZINE, 25 mg, Oral, Once hydrALAZINE, 50 mg, Oral, TID isosorbide dinitrate, 10 mg, Oral, Once isosorbide dinitrate, 20 mg, Oral, TID magnesium oxide, 400 mg, Oral, Daily melatonin, 3 mg, Oral, Nightly potassium chloride, 40 mEq, Oral, Once potassium chloride CR, 40 mEq, Oral, Daily spironolactone, 25 mg, Oral, Daily PRN medications: acetaminophen OR acetaminophen, ondansetron ODT OR ondansetron, polyethylene glycol (PEG) 3350 Continuous Assessment Acute, acute on chronic, unstable/uncontrolled chronic problems/diagnoses: # Chest pain, improved # Hx of biventricular dysfunction, acute on chronic HFrEF - TTE (06/15/24): LVEF 20%, severe globalhypokinesis, dilated RV with moderately reduced systolic fxn, 1+ AR, 2+ MR, moderately elevated RVSP. BNP 16,371 on admission. CXR showed enlarged cardiac silhouette similar to previous exam. TTE (08/11/24): LVEF 18%, 1+ AR, 2+ MR, 3+ TR, severely dilated LA, moderately dilated RA. BNP 16,371 (08/09)-> 10,757 (08/12) # Abdominal pain, improved # Lactic acidosis, resolved # Hyponatremia, improved # Hypokalemia - monitor and replete PRN # Transaminitis # Hyperbilirubinemia # Noncompliance with medical treatments Stable chronic problems affecting care, new non-acute diagnoses: # HTN # HLD # CAD # CKD 3 - Renal US (08/10/24) showed findings compatible with medical renal disease similar to comparison, no significant hydronephrosis, and small amount of perihepatic fluid. # Hx of PE - on Eliquis Plan As a result of the above findings & factors, the following mgmt was pursued: - Telemetry monitoring - Cardiology/HF following. Noted patient adamantly declined swan guided therapy as well as bumex gtt. On IV Bumex 3 mg TID, PO Hydralazine 50 mg TID and Isordil 20 mg TID, but patient has been intermittently refusing meds during hospitalization. Holding Coreg due to possible low output HF. Recs noted. - Discussed importance of adherence to recommended medications - Strict I/O's, daily weight - Nephrology following. Noted prognosis remains guarded given complex pathophysiology and patient not cooperative with recommended treatment plans. Recs noted. - Continue chronic medications as able. - TCC following for dispo planning. Notified by [facility] that patient's insurance is out of network and need to call [facility] [place] transfer line ([phone]) to see if we can get him transferred. Called [facility] [place] transfer line and discussed with hospitalist. Patient accepted for transfer to [facility] [place] pending bed availability which was noted could take awhile (accepting physician: Dr. Govea?). - am labs, replace lytes prn - delirium precautions: increase activity, schedule melatonin at bedtime, and limit nighttime disturbances - DVT prophylaxis: encourage ambulation and already anticoagulated Advance Directive: Full Code Anticipated Discharge - Date - TBD - Location - TBD - patient accepted for transfer to [facility] [place] pending bed availability as patient out of network with insurance here - Pending the following - clinical course, building performance consultant recs Extended Emergency Contact Information Primary Emergency Contact: Kaitlin Hicks Mobile Relation: Significant Other Secondary Emergency Contact: Indira Medina Mobile Relation: Sister Alonzo Aguilar MD Division of Hospitalist Medicine [facility] * Sepideh TownsendTHOMAS - WHITING MACHINE OPERATOR - 08/17/2024 8:35 AM EST [facility] [place] [facility] Cardiology /Electrophysiology Progress Note HPI / Interval History: Carlo Medina is a 44 year old male with a PMH significant for HFrEF, NICM, ([facility] no CAD 05/2024), HTN, HLD, CKD III, DVTs on OAC), and poor health literacy/ poor medication/follow up compliance who presented to [facility] on 08/09/24 secondary to SOB, chest pain, and abdominal pain. EKG sinus tachycardia. Troponin negative. NT Pro BNP 51974. Cardiology consulted and Pt found to be in ADHF, cold on exam. RHC was recommended, Pt refused. This is his 9th admission for ADHF since 01/2024. Throughout admission he has been intermittently refusing medications and blood work. Today, Carlo states he's feeling better and no longer having any nausea or abd pain. He is up walking to the bathroom without dizziness or feeling lightheaded. Occasional CARRERA and does feel palpitations. Assessment/Plan Acute on chronic HFrEF 2/2 NICM. Stage C - Presented in ADHF with volume overload in the setting of non compliance. - Yesterday he was compliant with all doses of hydralazine, isordil and bumex and he responded wellwith 5L UOP as well as improving renal function and down trending T.Bili. Will watch bicarb and give diamox if >35. - On exam today he warm with JVP to his mid neck. Continue current IV diuresis. He is an NYHA classIII. - For GDMT: Continue hydralazine 50mg TID and isordil 20mg TID. Start spironolactone 25mg daily. - Continue to hold BB until well compensated. - Hold off on SGLT-2 for now - Strict I/Os, daily standing weights, 1.8L fluid restriction, 2gm Na diet DVT - Continue OAC SCHUYLER on CKDIII - Likely 2/2 CRS vs low output HF. Now improving with GDMT and aggressive IV diuresis. NSVT - Likely in the setting of ADHF with severe hypomag and hypokalemia - Aggressive replacement Hypokalemia Hypomagnesia - Ordered replacement. Plan discussed with Dr. Coppola. HF will continue to follow. Medications: apixaban, 5 mg, Oral, BID bumetanide, 3 mg, IntraVENous, TID AC hydrALAZINE, 50 mg, Oral, TID isosorbide dinitrate, 20 mg, Oral, TID magnesium oxide, 400 mg, Oral, Daily [START ON 08/18/2024] magnesium sulfate, 2,000 mg, IntraVENous, Daily magnesium sulfate, 2,000 mg, IntraVENous, Once melatonin, 3 mg, Oral, Nightly potassium chloride, 40 mEq, Oral, Once potassium chloride CR, 40 mEq, Oral, Daily potassium chloride CR, 40 mEq, Oral, Once spironolactone, 25 mg, Oral, Daily Infusion Medications: Physical Examination: Vitals: 08/17/24 0004 08/17/24 0342 08/17/24 0719 08/17/24 1036 BP: 101/79 103/74 104/71 BP Location: Right arm Left arm Left arm Patient Position: Lying Lying Lying Pulse: 53 104 103 Resp: 16 20 Temp: 36.6 C (97.9 F) 36.3 C (97.4 F) 36.3 C (97.3 F) TempSrc: Temporal Temporal Temporal SpO2: 97% 99% 97% Weight: 161 lb 9.6 oz (73.3 kg) Height: Intake/Output Summary (Last 24 hours) at 08/17/2024 1342 Last data filed at 08/17/2024 0719 Gross per 24 hour Intake 360 ml Output 4150 ml Net -3790 ml Patient Vitals for the past 168 hrs: Weight Weight Method 08/17/24 0004 161 lb 9.6 oz (73.3 kg) Standing scale 08/16/24 0029 163 lb 9.6 oz (74.2 kg) Standing scale 08/15/24 0100 167 lb 9.6 oz (76 kg) Standing scale 08/14/24 0649 168 lb 6.4 oz (76.4 kg) Standing scale 08/13/24 0619 174 lb 3.2 oz (79 kg) Standing scale 08/12/24 0244 175 lb 6.4 oz (79.6 kg) Standing scale 08/11/24 1042 173 lb (78.5 kg) -- 08/11/24 0100 173 lb 8 oz (78.7 kg) -- 08/10/24 2101 173 lb 3.2 oz (78.6 kg) Standing scale Physical Exam Constitutional: Appearance: Normal appearance. Neck: Vascular: JVD present. Cardiovascular: Rate and Rhythm: Regular rhythm. Tachycardia present. Pulses: Normal pulses. Heart sounds: Normal heart sounds. Pulmonary: Effort: Pulmonary effort is normal. Breath sounds: Normal breath sounds. Abdominal: General: Bowel sounds are normal. Palpations: Abdomen is soft. Musculoskeletal: Right lower leg: No edema. Left lower leg: No edema. Skin: General: Skin is warm and dry. Capillary Refill: Capillary refill takes less than 2 seconds. Neurological: General: No focal deficit present. Mental Status: He is alert and oriented to person, place, and time. Laboratory Tests: TROPONIN I, CONVENTIONAL SENSITIVITY TROPONIN I Date Value Ref Range Status 05/28/2024 0.037 (H) <0.034 ng/mL Final 05/28/2024 0.051 (H) <0.034 ng/mL Final 04/28/2024 0.032 <0.034 ng/mL Final 04/28/2024 0.025 <0.034 ng/mL Final 04/28/2024 0.020 <0.034 ng/mL Final TROPONIN I, HIGH SENSITIVITY Troponin HS Serial Baseline Date Value Ref Range Status 08/09/2024 31 <=35 ng/L Final Comment: In individuals presenting with symptoms > 2h, a baseline troponin <= 5 ng/L suggests acute cardiac injury is unlikely and further serial testing is generally not indicated. 08/05/2024 22 <=35 ng/L Final Comment: In individuals presenting with symptoms > 2h, a baseline troponin <= 5 ng/L suggests acute cardiac injury is unlikely and further serial testing is generally not indicated. 07/23/2024 33 <=35 ng/L Final 07/11/2024 218 (HH) <=35 ng/L Final 07/03/2024 39 (H) <=35 ng/L Final 2h Troponin HS (Serial 2nd Troponin) Date Value Ref Range Status 08/11/2024 22 <=35 ng/L Final Comment: 2h troponin (2nd troponin) samples collected between 1h 40 min and 2h and 20 min of the baseline collection time can be utilized to interpret delta troponins as per [employer]ma algorithms. Samples collected outside this timeframe need to be interpreted clinically. 08/05/2024 19 <=35 ng/L Final Comment: 2h troponin (2nd troponin) samples collected between 1h 40 min and 2h and 20 min of the baseline collection time can be utilized to interpret delta troponins as per Summa algorithms. Samples collected outside this timeframe need to be interpreted clinically. Rising or falling troponin delta between 2 - 15 ng/L as compared to baseline value requires a 3rd serial troponin 07/23/2024 30 <=35 ng/L Final 07/11/2024 221 (HH) <=35 ng/L Final 07/03/2024 33 <=35 ng/L Final Absolute Delta (2nd - Baseline Troponin) Date Value Ref Range Status 07/11/2024 3 <=2 ng/L Final Comment: A troponin delta greater than or equal to 15 ng/L is significant for acute cardiac injury. Values less than 15 but greater than 2 are an intermediate change requiring a 3rd serial troponin to be drawn. Values less than or equal to 2 indicate acute cardiac injury is not likely, see external algorithmsfor further clinical guidance. 07/03/2024 -6 <=2 ng/L Final Comment: This specimen was collected more than 20 minutes away from the 2 hour target. Use of this delta with the 2 hour troponin algorithm is not recommended, individualized clinical assessment is needed. A troponin delta greater than or equal to 15 ng/L is significant for acute cardiac injury. Values less than 15 but greater than 2 are an intermediate change requiring a 3rd serial troponin to be drawn. Values less than or equal to 2 indicate acute cardiac injury is not likely, see external algorithmsfor further clinical guidance. 06/13/2024 3 <=2 ng/L Final Comment: This specimen was collected more than 20 minutes away from the 2 hour target. Use of this delta with the 2 hour troponin algorithm is not recommended, individualized clinical assessment is needed. A troponin delta greater than or equal to 15 ng/L is significant for acute cardiac injury. Values less than 15 but greater than 2 are an intermediate change requiring a 3rd serial troponin to be drawn. Values less than or equal to 2 indicate acute cardiac injury is not likely, see external algorithmsfor further clinical guidance. 4h Troponin HS (Serial 3rd Troponin) Date Value Ref Range Status 07/12/2024 218 (HH) <=35 ng/L Final 06/13/2024 49 (H) <=35 ng/L Final Absolute Delta (3rd - 2nd Troponin) Date Value Ref Range Status 07/12/2024 -3 <=2 ng/L Final Comment: A troponin delta greater than or equal to 15 ng/L is suggestive of acute cardiac injury. Values less than 15, see clinical guidance for ED and Inpatient algorithms. 06/13/2024 -4 <=2 ng/L Final Comment: This specimen was collected more than 20 minutes away from the 2 hour target. Use of this delta with the 2 hour troponin algorithm is not recommended, individualized clinical assessment is needed. A troponin delta greater than or equal to 15 ng/L is suggestive of acute cardiac injury. Values less than 15, see clinical guidance for ED and Inpatient algorithms. Recent Labs 08/15/24 0630 08/16/24 0859 08/17/24 0505 NA 137 141 139 K 3.6 3.2* 3.3* CL 102 100 97* CO2 24 27 30* BUN 37* 33* 32* CREATININE 1.94* 1.81* 1.53* Recent Labs 08/15/24 0630 08/16/24 0859 08/17/24 0505 WBC 8.1 6.2 7.4 HGB 14.7 13.2 14.3 HCT 43.5 39.6* 43.3 MCV 99.3* 100.3* 100.0* PLT 258 242 274 No results for input(s): BNP in the last 72 hours. No results for input(s): TRIG, HDL, LDLCALC, CHOL in the last 72 hours. No results found for: LDLCHOLESTER Lab Results Component Value Date TSH 3.18 07/23/2024 EF BP Date Value Ref Range Status 08/11/2024 18 (A) 55 - 100 % Final 08/09/24 TRANSTHORACIC ECHOCARDIOGRAM (TTE) COMPLETE (CONTRAST/BUBBLE/3D PRN) 08/11/2024 12:41 PM (Final) Interpretation Summary Left Ventricle: Left ventricle is severely dilated. Normal wall thickness. Severely reduced left ventricular systolic function. EF by 2D Simpsons Biplane is 18%. Global longitudinal strain is reducedwith a value of -4.1%. Global hypokinesis present. Right Ventricle: Not well visualized. Right ventricle is dilated. Low normal systolic function. Aortic Valve: Mild (1+) regurgitation. Mitral Valve: Moderate (2+) regurgitation. Tricuspid Valve: Moderately severe (3+) regurgitation. Left Atrium: Left atrium is severely dilated. Right Atrium: Right atrium is moderately dilated. Pericardium: Trivial pericardial effusion present. IVC/SVC: IVC diameter is dilated and decreases less than 50% during inspiration; therefore the estimated right atrial pressure is elevated (~15 mmHg). Signed by: Ana Singletary on 08/11/2024 12:41 PM Other reports reviewed: Cardiac Tests: Telemetry findings reviewed: ST with NSVT (longest 17 beats) EF BP Date Value Ref Range Status 08/11/2024 18 (A) 55 - 100 % Final THOMAS Chapa CNP Date Of Service 08/17/2024 * Selena Carlisle PA-C - 08/17/2024 8:27 AM EST [facility] Nephrology Progress Note Subjective/ 44 y.o. year old male who we are seeing in consultation for CKD stage 3b. Interval History Per RN patient occasionally refusing medications Continues to decline swan guided therapy, also declining continuous infusion of bumex gtt per cardiology recommendations Sitting up in bed, eating lunch Blood pressures soft but stable Continues to endorse good UOP LE edema improving however still present ROS Otherwise negative No interval changes to [facility]. All interval notes/labs/imaging reviewed. Objective/ Vitals: 08/16/24 2336 08/17/24 0004 08/17/24 0342 08/17/24 0719 BP: 114/78 101/79 103/74 BP Location: Right arm Right arm Left arm Patient Position: Lying Lying Lying Pulse: 54 53 104 Resp: 14 16 Temp: 36.1 C (97 F) 36.6 C (97.9 F) 36.3 C (97.4 F) TempSrc: Temporal Temporal Temporal SpO2: 98% 97% 99% Weight: 73.3 kg (161 lb 9.6 oz) Height: 24HR INTAKE/OUTPUT: Intake/Output Summary (Last 24 hours) at 08/17/2024 0836 Last data filed at 08/17/2024 0719 Gross per 24 hour Intake 360 ml Output 5125 ml Net -4765 ml Physical Exam Constitutional: Appearance: Normal appearance. HENT: Head: Normocephalic and atraumatic. Mouth/Throat: Mouth: Mucous membranes are moist. Eyes: General: No scleral icterus. Cardiovascular: Rate and Rhythm: Normal rate and regular rhythm. Pulmonary: Effort: Pulmonary effort is normal. Breath sounds: Normal breath sounds. Comments: Breathing comfortably on RA CTAb anteriorly Abdominal: General: Bowel sounds are normal. Tenderness: There is no abdominal tenderness. Musculoskeletal: Cervical back: Neck supple. Right lower leg: Edema (trace) present. Left lower leg: Edema (trace) present. Skin: General: Skin is warm and dry. Neurological: Mental Status: He is alert and oriented to person, place, and time. Psychiatric: Mood and Affect: Mood normal. Thought Content: Thought content normal. Scheduled Meds:apixaban, 5 mg, Oral, BID bumetanide, 3 mg, IntraVENous, TID AC hydrALAZINE, 25 mg, Oral, Once hydrALAZINE, 50 mg, Oral, TID isosorbide dinitrate, 10 mg, Oral, Once isosorbide dinitrate, 20 mg, Oral, TID magnesium oxide, 400 mg, Oral, Daily melatonin, 3 mg, Oral, Nightly potassium chloride, 40 mEq, Oral, Once potassium chloride CR, 40 mEq, Oral, Daily [Held by provider] sodium bicarbonate, 1,300 mg, Oral, BID Continuous Infusions: PRN Meds:.PRN medications: acetaminophen OR acetaminophen, ondansetron ODT OR ondansetron, polyethylene glycol (PEG) 3350 Data/ Recent Labs 08/15/24 0630 08/16/24 0859 08/17/24 0505 WBC 8.1 6.2 7.4 HGB 14.7 13.2 14.3 HCT 43.5 39.6* 43.3 MCV 99.3* 100.3* 100.0* PLT 258 242 274 Recent Labs 08/14/24 1036 08/15/24 0630 08/16/24 0859 08/17/24 0505 NA 138 137 141 139 K 3.3* 3.6 3.2* 3.3* CL 102 102 100 97* CO2 26 24 27 30* GLUCOSE 151* 104* 190* 102* MG 1.6 -- -- 1.3* BUN 39* 37* 33* 32* CREATININE 2.17* 1.94* 1.81* 1.53* Assessment/ SCHUYLER on CKD stage 3b N19.7, I13.10, N18.32 Hyponatremia: hypervolemic E87.1: resolved Hypokalemia E87.6 NAGMA E87.21: resolved Chronic HFrEF I50.22 HTN in CKD I12.9 Hepatic steatosis Plan/ -Renal function improved to better then previous thought baseline of 1.7, cont to trend to establish baseline -Recommend daily standing weights -Defer management of diuresis to cardiology: noted patient's refusal for swan guided therapy and refusal of bumex gtt making medical management more difficult -Recommend continuing with current diuresis until creatinine begins to trend upwards -Hypokalemia noted c/w, 40 mEq po kcl daily while receiving aggressive IV diuresis -Monitor urine output closely, need strict I&Os -Rest of management per primary team Plan d/w patient and primary team We will follow. Please do not hesitate to call with any questions or concerns. DAVID Bajwa, PA-C [facility] Office This note is not finalized until authorized by Attending physician. Cosigned by Saul Briones MD at 08/17/2024 1:30 PM EST Associated attestation - Saul Briones MD - 08/17/2024 1:30 PM EST Patient was seen and examined by me. Notes reviewed and plan discussed with the PA. Agree with above note except Any variance is noted below. Renal function continues to recover. Trend to establish baseline. Acute on chronic HFrEF: continue aggressive diuresis and supplement potassium as required. Consider addition of acetazolamide given that the patient is developing contraction alkalosis. Hypomagnesemia: Severe. Replace magnesium aggressively with IV and p.o. formulations. Will help to stabilize potassium level stable and reduce the risk of arrhythmias. Saul Briones MD [facility] [phone] * Edgar Celaya MD - 08/16/2024 9:59 AM EST Hospitalist Progress Note 08/16/2024 Subjective: Admit Date: 08/09/2024 PCP: No primary care provider on file. Room#: [facility] A BRIEF HOSPITAL COURSE: Carlo Medina is a 44 y.o. male with history of HTN, HLD, CAD, NICM/HFrEF, CKD 3, PE, noncompliance who presented to ED on 08/09/24 for chest pain, SOB, abdominal pain, and lightheadedness. In ED, initial labs significant for BUN 35, Cr 1.94, ALP 194, AST/ALT 52/95, WBC 8.8 wnl, Hb 14.2, HS troponin 31, BNP 16,371. EKG showed sinus tachycardia. CXR showed enlarged cardiac silhouette similar to previous exam. Given IV morphine and zofran in ED. Admitted for further evaluation and management. Renal US showed findings compatible with medical renal disease similar to comparison, no significant hydronephrosis, and small amount of perihepatic fluid. Cardiology consulted/following, started GDMT, recommended swan guided therapy if patient does not improve with PO meds, but patient adamantly refusing swan. Nephrology consulted/following. Notified by TCC that patient's insurance is out of network, so called [facility] transfer line and discussed with hospitalist; patient accepted for transferto [facility] pending bed availability. Interval History: No acute overnight events. Cousin present at bedside this AM. Patient laying in bed, Aox3, on room air. States that he is doing better this AM. Reports improvement in SOB and leg swelling. Currently denies fever, chills, chest pain, SOB. During encounter, cousin sternly advised patient to follow recommendations of medical team while admitted. Case and plan discussed with patient and TCC. Questions answered. Adult diet Regular; No Added Salt (3-4 gm); 2000 ml 24HR INTAKE/OUTPUT: Intake/Output Summary (Last 24 hours) at 08/16/2024 0959 Last data filed at 08/15/2024 2200 Gross per 24 hour Intake 370 ml Output 3175 ml Net -2805 ml Past Medical History: Past Medical History: Diagnosis Date Acute HFrEF (heart failure with reduced ejection fraction) ([facility]) 06/13/2024 Acute kidney injury superimposed on CKD ([facility]) ([facility]) 07/03/2024 At risk for obstructive sleep apnea 05/31/2024 o/p sleep study recommended during admission CHF (congestive heart failure) ([facility]) CKD (chronic kidney disease) H/O noncompliance with medical treatment, presenting hazards to health 06/19/2024 HFrEF (heart failure with reduced ejection fraction) ([facility]) 04/28/2024 History of left bundle branch block (LBBB) 06/19/2024 Hypercholesteremia Hypertension Left against medical advice 08/04/2024 Noncompliance 06/19/2024 NSTEMI (non-ST elevated myocardial infarction) ([facility]) 07/11/2024 Potential for deficient knowledge of congestive heart failure 08/05/2024 Pulmonary embolism ([facility]) Pulmonary vascular congestion 04/28/2024 Sinus tachycardia 06/19/2024 LABS: CBC: Recent Labs 08/14/24 1036 08/15/24 0630 08/16/24 0859 WBC 7.3 8.1 6.2 RBC 4.13* 4.38* 3.95* HGB 13.8 14.7 13.2 HCT 41.7 43.5 39.6* MCV 101.0* 99.3* 100.3* RDW 13.3 13.3 13.2 PLT 258 258 242 BMP: Recent Labs 08/14/24 1036 08/15/24 0630 08/16/24 0859 NA 138 137 141 K 3.3* 3.6 3.2* CL 102 102 100 CO2 26 24 27 BUN 39* 37* 33* CREATININE 2.17* 1.94* 1.81* GLUCOSE 151* 104* 190* CALCIUM 8.2* 8.3* 7.8* ANIONGAP 10 11 14* LIVER PROFILE: Recent Labs 08/14/24 1036 08/15/24 0630 08/16/24 0859 AST 36* 32 35* ALT 73* 69* 64* BILITOT 2.1* 1.9* 1.8* ALKPHOS 230* 223* 193* PROT 5.5* 6.0* 5.6* PT/INR: No results for input(s): PROTIME, INR in the last 72 hours. CARDIAC ENZYMES: No results for input(s): TROPONINI in the last 72 hours. Procalcitonin: No results found for: PROCAL COVID-19 PCR: No results for input(s): COVID19 in the last 72 hours. Objective: Vitals: BP 117/83 (BP Location: Right arm, Patient Position: Sitting) Pulse 105 Temp 36.3 C (97.3 F) (Temporal) Resp 18 Ht 6' 1 (1.854 m) Wt 163 lb 9.6 oz (74.2 kg) SpO2 99% BMI 21.58 kg/m Pulse Ox: SpO2 Av % Min: 95 % Max: 99 % Supplemental O2: O2 Flow Rate (L/min): 2 L/min Physical Exam Constitutional: General: He is not in acute distress. Appearance: He is not toxic-appearing. HENT: Head: Normocephalic. Right Ear: External ear normal. Left Ear: External ear normal. Eyes: Extraocular Movements: Extraocular movements intact. Cardiovascular: Rate and Rhythm: Regular rhythm. Tachycardia present. Pulmonary: Effort: Pulmonary effort is normal. No respiratory distress. Abdominal: General: Bowel sounds are normal. Palpations: Abdomen is soft. Musculoskeletal: General: Normal range of motion. Right lower leg: Edema present. Left lower leg: Edema present. Skin: General: Skin is warm and dry. Neurological: Mental Status: He is alert and oriented to person, place, and time. Medications: Scheduled PRN apixaban, 5 mg, Oral, BID bumetanide, 3 mg, IntraVENous, TID AC hydrALAZINE, 25 mg, Oral, Once hydrALAZINE, 50 mg, Oral, TID isosorbide dinitrate, 10 mg, Oral, Once isosorbide dinitrate, 20 mg, Oral, TID melatonin, 3 mg, Oral, Nightly potassium chloride CR, 40 mEq, Oral, Daily [Held by provider] sodium bicarbonate, 1,300 mg, Oral, BID PRN medications: acetaminophen OR acetaminophen, ondansetron ODT OR ondansetron, polyethylene glycol (PEG) 3350 Continuous Assessment Acute, acute on chronic, unstable/uncontrolled chronic problems/diagnoses: # Chest pain, improved # Hx of biventricular dysfunction, acute on chronic HFrEF - TTE (06/15/24): LVEF 20%, severe globalhypokinesis, dilated RV with moderately reduced systolic fxn, 1+ AR, 2+ MR, moderately elevated RVSP. BNP 16,371 on admission. CXR showed enlarged cardiac silhouette similar to previous exam. TTE (08/11/24): LVEF 18%, 1+ AR, 2+ MR, 3+ TR, severely dilated LA, moderately dilated RA. BNP 16,371 (08/09)-> 10,757 (08/12) # Abdominal pain, improved # Lactic acidosis, resolved # Hyponatremia, improved # Hypokalemia - monitor and replete PRN # Transaminitis # Hyperbilirubinemia # Noncompliance with medical treatments Stable chronic problems affecting care, new non-acute diagnoses: # HTN # HLD # CAD # CKD 3 - Renal US (08/10/24) showed findings compatible with medical renal disease similar to comparison, no significant hydronephrosis, and small amount of perihepatic fluid. # Hx of PE - on Eliquis Plan As a result of the above findings & factors, the following mgmt was pursued: - Telemetry monitoring - Cardiology/HF following. Noted patient adamantly declined swan guided therapy as well as bumex gtt. On IV Bumex 3 mg TID, PO Hydralazine 50 mg TID and Isordil 20 mg TID, but patient has been intermittently refusing meds during hospitalization. Holding Coreg due to possible low output HF. Recs noted. - Discussed importance of adherence to recommended medications - Strict I/O's, daily weight - Nephrology following. Noted prognosis remains guarded given complex pathophysiology and patient not cooperative with recommended treatment plans. Recs noted. - Continue chronic medications as able. - TCC following for dispo planning. Notified by [facility] that patient's insurance is out of network and need to call [facility] [place] transfer line ([phone]) to see if we can get him transferred. Called [facility] [place] transfer line and discussed with hospitalist. Patient accepted for transfer to [facility] [place] pending bed availability which was noted could take awhile (accepting physician: Dr. Govea?). - am labs, replace lytes prn - delirium precautions: increase activity, schedule melatonin at bedtime, and limit nighttime disturbances - DVT prophylaxis: encourage ambulation and already anticoagulated Advance Directive: Full Code Anticipated Discharge - Date - TBD - Location - TBD - patient accepted for transfer to [facility] [place] pending bed availability as patient out of network with insurance here - Pending the following - clinical course, building performance consultant recs Extended Emergency Contact Information Primary Emergency Contact: Kaitlin Hicks Mobile Relation: Significant Other Secondary Emergency Contact: Indira Medina Mobile Relation: Sister Egdar Celaya MD Division of Hospitalist Medicine Acute [facility] * Selena Carlisle PA-C - 08/16/2024 8:11 AM EST [facility] Progress Note Subjective/ 44 y.o. year old male who we are seeing in consultation for CKD stage 3b. Interval History Per RN patient occasionally refusing medications Continues to decline swan guided therapy, also declining continuous infusion of bumex gtt per cardiology recommendations Laying in bed, reports feeling ok Blood pressures stable Continues to endorse good UOP LE edema improving ROS Otherwise negative No interval changes to PFSH. All interval notes/labs/imaging reviewed. Objective/ Vitals: 08/16/24 0355 08/16/24 0743 08/16/24 1035 08/16/24 1036 BP: 117/83 120/73 BP Location: Right arm Right arm Patient Position: Sitting Lying Pulse: 105 105 110 111 Resp: 18 18 Temp: 36.3 C (97.3 F) 36.2 C (97.2 F) TempSrc: Temporal Temporal SpO2: 95% 99% 99% 99% Weight: Height: 24HR INTAKE/OUTPUT: Intake/Output Summary (Last 24 hours) at 08/16/2024 1405 Last data filed at 08/16/2024 1036 Gross per 24 hour Intake 370 ml Output 3950 ml Net -3580 ml Physical Exam Constitutional: Appearance: Normal appearance. HENT: Head: Normocephalic and atraumatic. Mouth/Throat: Mouth: Mucous membranes are moist. Eyes: General: No scleral icterus. Cardiovascular: Rate and Rhythm: Normal rate and regular rhythm. Pulmonary: Effort: Pulmonary effort is normal. Breath sounds: Normal breath sounds. Comments: Breathing comfortably on RA CTAb anteriorly Abdominal: General: Bowel sounds are normal. Tenderness: There is no abdominal tenderness. Musculoskeletal: Cervical back: Neck supple. Right lower leg: Edema (trace) present. Left lower leg: Edema (trace) present. Skin: General: Skin is warm and dry. Neurological: Mental Status: He is alert and oriented to person, place, and time. Psychiatric: Mood and Affect: Mood normal. Thought Content: Thought content normal. Scheduled Meds:apixaban, 5 mg, Oral, BID bumetanide, 3 mg, IntraVENous, TID AC hydrALAZINE, 25 mg, Oral, Once hydrALAZINE, 50 mg, Oral, TID isosorbide dinitrate, 10 mg, Oral, Once isosorbide dinitrate, 20 mg, Oral, TID melatonin, 3 mg, Oral, Nightly potassium chloride CR, 40 mEq, Oral, Daily potassium chloride CR, 40 mEq, Oral, Once [Held by provider] sodium bicarbonate, 1,300 mg, Oral, BID Continuous Infusions: PRN Meds:.PRN medications: acetaminophen OR acetaminophen, ondansetron ODT OR ondansetron, polyethylene glycol (PEG) 3350 Data/ Recent Labs 08/14/24 1036 08/15/24 0630 08/16/24 0859 WBC 7.3 8.1 6.2 HGB 13.8 14.7 13.2 HCT 41.7 43.5 39.6* MCV 101.0* 99.3* 100.3* PLT 258 258 242 Recent Labs 08/14/24 1036 08/15/24 0630 08/16/24 0859 NA 138 137 141 K 3.3* 3.6 3.2* CL 102 102 100 CO2 26 24 27 GLUCOSE 151* 104* 190* MG 1.6 -- -- BUN 39* 37* 33* CREATININE 2.17* 1.94* 1.81* Assessment/ SCHUYLER on CKD stage 3b N19.7, I13.10, N18.32 Hyponatremia: hypervolemic E87.1: resolved Hypokalemia E87.6 NAGMA E87.21: resolved Chronic HFrEF I50.22 HTN in CKD I12.9 Hepatic steatosis Plan/ -Renal function continues to slowly improve, baseline ~ 1.7 -BUN improving with more aggressive diuresis, c/w CRS -Continue to trend creatinine and monitor urine output closely -Recommend daily standing weights -Defer management of diuresis to cardiology: noted patient's refusal for swan guided therapy and refusal of bumex gtt making medical management more difficult -Recommend continuing with current diuresis until creatinine begins to trend upwards -Serial trend NT pro BNPs, 16,000 >> 10,000 -Hypokalemia noted c/w, 40 mEq po kcl daily while receiving aggressive IV diuresis, give meq today -Monitor urine output closely, need strict I&Os -Rest of management per primary team Plan d/w patient and primary team We will follow. Please do not hesitate to call with any questions or concerns. DAVID Bajwa PA-C [facility] Office This note is not finalized until authorized by Attending physician. Cosigned by Saul Briones MD at 08/16/2024 5:08 PM EST Associated attestation - Saul Briones MD - 08/16/2024 5:08 PM EST Notes reviewed and plan discussed with the PA. Agree with above note except Any variance is noted below. Saul Briones MD [facility] [phone] * Luis Zavaleta PA-C - 08/16/2024 7:13 AM EST [facility] Cardiology /Electrophysiology Progress Note HPI / Interval History: Patient is a 44 year old male with a PMH significant for HFrEF, NICM, HTN who presented to [facility] on 08/09/24 secondary to SOB, chest pain, and abdominal pain. EKG sinus tachycardia. Troponin negative. NT Pro BNP 25390. Cardiology consulted and Pt found to be in ADHF, cold on exam. RHC was recommended, Pt refused. Pt has been intermittently refusing medications/ treatment while inpatient. He has been started on IV diuresis. [facility] May 2024 with no significant CAD. Echocardiogram this admission with LVEF=18%, global hypokinesis, low normal RV function, 2+ MR, trivial pericardial effusion. Today he is eating lunch at the time of exam. He reports he understands the severity of his heart failure. He states he does occasionally miss doses of his home medications. Assessment/Plan #Acute on chronic HFrEF, LVEF=18%, NICM, stage C. NYHA - unable to assess -Refused RHC this admission -He is massively volume overloaded on exam, + JVD, JVP noted to earlobe, he has refused gtt this admission, continue Bumex 3 mg IV TID for now, -3.1 L UOP overnight -Continue hydralazine 25 mg TID and Isordil 20 mg TID, he is intermittently refusing medications, needs to take as prescribed -Add BB once he is closer to euvolemic -Last labs with improving renal function, Scr 1.9->1.8, BUN 33, Na 141, and K+ 3.2 -Strict I&Os, daily standing weights, 1.8 g Na diet, and 64 oz fluid restriction #SCHUYLER on CKD III -Likely secondary to CRS -Improving with IV diuresis, nephrology following #DVT -On Eliquis 5 mg BID -Last Hgb stable #Hypokalemia -Potassium chloride 40 mEq x1 dose ordered Pt evaluated and plan discussed with Dr. Coppola, please see addendum for further recommendations. Medications: apixaban, 5 mg, Oral, BID bumetanide, 3 mg, IntraVENous, TID AC hydrALAZINE, 25 mg, Oral, Once hydrALAZINE, 50 mg, Oral, TID isosorbide dinitrate, 10 mg, Oral, Once isosorbide dinitrate, 20 mg, Oral, TID melatonin, 3 mg, Oral, Nightly potassium chloride CR, 40 mEq, Oral, Daily [Held by provider] sodium bicarbonate, 1,300 mg, Oral, BID Infusion Medications: Physical Examination: Vitals: 08/15/24204408/16/24 0029 08/16/24 0355 08/16/24 0355 BP: 104/78 109/85 113/81 BP Location: Right arm Right arm Right arm Patient Position: Lying Lying Lying Pulse: 107 98 105 105 Resp: 16 20 18 Temp: 36.2 C (97.1 F) 36.4 C (97.5 F) 36.3 C (97.4 F) TempSrc: Temporal Temporal Temporal SpO2: 99% 96% 95% 95% Weight: 163 lb 9.6 oz (74.2 kg) Height: Intake/Output Summary (Last 24 hours) at 08/16/2024 0713 Last data filed at 08/15/2024 2200 Gross per 24 hour Intake 370 ml Output 3175 ml Net -2805 ml Patient Vitals for the past 168 hrs: Weight Weight Method 08/16/24 0029 163 lb 9.6 oz (74.2 kg) Standing scale 08/15/24 0100 167 lb 9.6 oz (76 kg) Standing scale 08/14/24 0649 168 lb 6.4 oz (76.4 kg) Standing scale 08/13/24 0619 174 lb 3.2 oz (79 kg) Standing scale 08/12/24 0244 175 lb 6.4 oz (79.6 kg) Standing scale 08/11/24 1042 173 lb (78.5 kg) -- 08/11/24 0100 173 lb 8 oz (78.7 kg) -- 08/10/242100 173 lb 3.2 oz (78.6 kg) Standing scale 08/09/242113 164 lb (74.4 kg) Stated Physical Exam Vitals reviewed. Constitutional: General: He is not in acute distress. HENT: Head: Normocephalic and atraumatic. Neck: Vascular: JVD present. Comments: To earlobe Neurological: Mental Status: He is alert. Mental status is at baseline. Psychiatric: Mood and Affect: Mood normal. Laboratory Tests: TROPONIN I, CONVENTIONAL SENSITIVITY TROPONIN I Date Value Ref Range Status 05/28/2024 0.037 (H) <0.034 ng/mL Final 05/28/2024 0.051 (H) <0.034 ng/mL Final 04/28/2024 0.032 <0.034 ng/mL Final 04/28/2024 0.025 <0.034 ng/mL Final 04/28/2024 0.020 <0.034 ng/mL Final TROPONIN I, HIGH SENSITIVITY Troponin HS Serial Baseline Date Value Ref Range Status 08/09/2024 31 <=35 ng/L Final Comment: In individuals presenting with symptoms > 2h, a baseline troponin <= 5 ng/L suggests acute cardiac injury is unlikely and further serial testing is generally not indicated. 08/05/2024 22 <=35 ng/L Final Comment: In individuals presenting with symptoms > 2h, a baseline troponin <= 5 ng/L suggests acute cardiac injury is unlikely and further serial testing is generally not indicated. 07/23/2024 33 <=35 ng/L Final 07/11/2024 218 (HH) <=35 ng/L Final 07/03/2024 39 (H) <=35 ng/L Final 2h Troponin HS (Serial 2nd Troponin) Date Value Ref Range Status 08/11/2024 22 <=35 ng/L Final Comment: 2h troponin (2nd troponin) samples collected between 1h 40 min and 2h and 20 min of the baseline collection time can be utilized to interpret delta troponins as per Summa algorithms. Samples collected outside this timeframe need to be interpreted clinically. 08/05/2024 19 <=35 ng/L Final Comment: 2h troponin (2nd troponin) samples collected between 1h 40 min and 2h and 20 min of the baseline collection time can be utilized to interpret delta troponins as per Summa algorithms. Samples collected outside this timeframe need to be interpreted clinically. Rising or falling troponin delta between 2 - 15 ng/L as compared to baseline value requires a 3rd serial troponin 07/23/2024 30 <=35 ng/L Final 07/11/2024 221 (HH) <=35 ng/L Final 07/03/2024 33 <=35 ng/L Final Absolute Delta (2nd - Baseline Troponin) Date Value Ref Range Status 07/11/2024 3 <=2 ng/L Final Comment: A troponin delta greater than or equal to 15 ng/L is significant for acute cardiac injury. Values less than 15 but greater than 2 are an intermediate change requiring a 3rd serial troponin to be drawn. Values less than or equal to 2 indicate acute cardiac injury is not likely, see external algorithmsfor further clinical guidance. 07/03/2024 -6 <=2 ng/L Final Comment: This specimen was collected more than 20 minutes away from the 2 hour target. Use of this delta with the 2 hour troponin algorithm is not recommended, individualized clinical assessment is needed. A troponin delta greater than or equal to 15 ng/L is significant for acute cardiac injury. Values less than 15 but greater than 2 are an intermediate change requiring a 3rd serial troponin to be drawn. Values less than or equal to 2 indicate acute cardiac injury is not likely, see external algorithmsfor further clinical guidance. 06/13/2024 3 <=2 ng/L Final Comment: This specimen was collected more than 20 minutes away from the 2 hour target. Use of this delta with the 2 hour troponin algorithm is not recommended, individualized clinical assessment is needed. A troponin delta greater than or equal to 15 ng/L is significant for acute cardiac injury. Values less than 15 but greater than 2 are an intermediate change requiring a 3rd serial troponin to be drawn. Values less than or equal to 2 indicate acute cardiac injury is not likely, see external algorithmsfor further clinical guidance. 4h Troponin HS (Serial 3rd Troponin) Date Value Ref Range Status 07/12/2024 218 (HH) <=35 ng/L Final 06/13/2024 49 (H) <=35 ng/L Final Absolute Delta (3rd - 2nd Troponin) Date Value Ref Range Status 07/12/2024 -3 <=2 ng/L Final Comment: A troponin delta greater than or equal to 15 ng/L is suggestive of acute cardiac injury. Values less than 15, see clinical guidance for ED and Inpatient algorithms. 06/13/2024 -4 <=2 ng/L Final Comment: This specimen was collected more than 20 minutes away from the 2 hour target. Use of this delta with the 2 hour troponin algorithm is not recommended, individualized clinical assessment is needed. A troponin delta greater than or equal to 15 ng/L is suggestive of acute cardiac injury. Values less than 15, see clinical guidance for ED and Inpatient algorithms. Recent Labs 08/13/2492308/14/24 1036 08/15/24 0630 NA 136 138 137 K 3.7 3.3* 3.6 CL 105 102 102 CO2 20* 26 24 BUN 47* 39* 37* CREATININE 2.24* 2.17* 1.94* Recent Labs 08/13/2492308/14/24 1036 08/15/24 0630 WBC 7.4 7.3 8.1 HGB 13.8 13.8 14.7 HCT 40.9 41.7 43.5 MCV 98.1 101.0* 99.3* PLT 246 258 258 No results for input(s): BNP in the last 72 hours. No results for input(s): TRIG, HDL, LDLCALC, CHOL in the last 72 hours. No results found for: LDLCHOLESTER Lab Results Component Value Date TSH 3.18 07/23/2024 EF BP Date Value Ref Range Status 08/11/2024 18 (A) 55 - 100 % Final 08/09/24 TRANSTHORACIC ECHOCARDIOGRAM (TTE) COMPLETE (CONTRAST/BUBBLE/3D PRN) 08/11/2024 12:41 PM (Final) Interpretation Summary Left Ventricle: Left ventricle is severely dilated. Normal wall thickness. Severely reduced left ventricular systolic function. EF by 2D Simpsons Biplane is 18%. Global longitudinal strain is reducedwith a value of -4.1%. Global hypokinesis present. Right Ventricle: Not well visualized. Right ventricle is dilated. Low normal systolic function. Aortic Valve: Mild (1+) regurgitation. Mitral Valve: Moderate (2+) regurgitation. Tricuspid Valve: Moderately severe (3+) regurgitation. Left Atrium: Left atrium is severely dilated. Right Atrium: Right atrium is moderately dilated. Pericardium: Trivial pericardial effusion present. IVC/SVC: IVC diameter is dilated and decreases less than 50% during inspiration; therefore the estimated right atrial pressure is elevated (~15 mmHg). Signed by: Ana Singletary on 08/11/2024 12:41 PM Other reports reviewed: Cardiac Tests: Telemetry findings reviewed: Sinus tachycardia EF BP Date Value Ref Range Status 08/11/2024 18 (A) 55 - 100 % Final Luis Zavaleta PA-C Date Of Service 08/16/2024 Cosigned by Ab Coppola MD at 08/16/2024 4:40 PM EST Associated attestation - Ab Coppola MD - 08/16/2024 4:40 PM EST I, Dr. Ab Coppola, have personally performed a face to face diagnostic evaluation on this patient in [id number] A. I have reviewed and agree with the care plan. My assessment/plan are as follows In summary, Ms. Medina is a 44-year-old man with a history of nonischemic cardiomyopathy, hypertension, CKD stage III, who presented with signs and symptoms of acute decompensated heart failure, withsome concern for low output heart failure. Transthoracic echocardiogram here showed left ventricular ejection fraction 18% with severe LV dilatation, and low normal RV function. He has moderate to severe TR. Laboratory testing shows a creatinine of 1.9 which appears to be close to his baseline. He declined right heart catheterization. Urineoutput over the past 24 hours was 3.1 L receiving 3 mg of bumetanide 3 times daily along with isosor bide dinitrate and hydralazine. Today on exam, JVP is to the jawline My overall assessment is Mr. Medina has acute decompensated heart failure, possibly low output heart failure. He has been reluctant to do pretty much anything we ask him to do. I spoke to him about this and explained how many things we ask him to do are not negotiable. For now we will continue IV diuresis as detailed below, and may consider a right heart catheterization if we run into worsening renal function. Ab Coppola MD, PhD Advanced Heart Failure Cardiology [facility] [place] 4:40 PM 08/16/24 * Sheela Adan, RD - 08/15/2024 1:03 PM EST Nutrition Assessment Type and Reason for Visit: Consult (Roosevelt nutritional sub score is less than or equal to 2) Nutrition Recommendations/Plan: Continue Regular; No Added Salt (3-4 gm) diet with fluids per MD. Patient declines need for ONS at this time. Please record % meal consumed in flow sheet for most accurate nutrient intake assessment. Continue daily weights. Will continue to monitor weight changes, labs, and overall nutrition status. RD will continue to follow up weekly. 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 CXR showed enlarged cardiac silhouette similar to previous exam. Given IV morphine and zofran in ED. Renal US showed findings compatible with medical renal disease similar to comparison, no significant hydronephrosis, and small amount of perihepatic fluid. Admitted with concern for acute on chronic HFrEF and SCHUYLER on CKD. Nephrology consulted; per note - Scr is currently 1.80. As high as 1.94 on admission. Patient's baseline creatinine appears to be 1.7. Does not follow with outpatient Nephrology. Cardiology consulted; per note - discussed Low Na diet, sodium restriction. Pt believes sometimes eating things I shouldn't, may have possibly caused frequent decompensations. Reports knowing how to read a food label, does not eat out often, avoids processed meats/prepared meals. Does not want to be seen by the dietitian. Started GDMT, recommended swan guided therapy but patient adamantly refusing. 08/14: continues to refuse labs and medications but after a long conversation with Cards this morning, pt agreed to start taking meds for heart failure. IV diuretics were increased to bumex 2mg IV BID on 08/12, and has had a total of net 2.4 L out over the past 24 hrs. Still volume overloaded, and will need aggressive diuresis. RD consulted for Roosevelt nutritional sub score is less than or equal to 2, however pt currently witha score of 3. Patient currently on a Regular: NAIMA; 2000 ml diet. Patient reports a good appetite, states he eats 2 meals per day. Does not use ONS at home, declines while admitted. Report UBW 167#, no recent weight changes. Denies n/v/d/c, chewing or swallowing issues. No nutrtional questions or concerns at this time. Estimated Daily Nutrient Needs: Energy Requirements Based On: Kcal/kg Weight Used for Energy Requirements: [place] Weight for Energy Calculation (kg): 84 kg Total Energy Requirements (kcals/day): 0230-9416 kcal/day (25-30) Weight Used for Protein Requirements: [place] Weight in Kg Used for Protein Requirements: 84 kg Estimated Total Protein (g/day): 84-101 g/day (1-1.2) Estimated Daily Total Fluid (ml/day): Per MD Nutrition Related Findings: Roosevelt: 20. I&O: -2613. Edema: +1 BLE. Labs: BUN 37, Cr 1.94, eGFR 42.4, glucose 104, calcium 8.3, Alk phos 223, ALT 69, bilirubin 1.9. Meds: Eliquis, Bumex, Apresoline, Klor-Con Wound Type: None Current Nutrition Therapies: Adult diet Regular; No Added Salt (3-4 gm); 2000 ml Current Oral Intake Average Meal Intake: 76-100% Average Supplements Intake: None Ordered Anthropometric Measures: Height: 185.4 cm (6' 1) Current Body Weight: 75.8 kg (167 lb) (08/15/24) Weight Source: Standing Scale Admission Body Weight: 78.5 kg (173 lb) (08/10/24 - standing scale) Usual Body Weight: 75.8 kg (167 lb) (Per patient) % Weight Change (Calculated): 0 [place] Body Weight (lbs) (Calculated): 184 lbs [place] Body Weight (Kg) (Calculated): 84 kg % [place] Body Weight (Calculated): 90.8 % BMI (kg/m2) (Calculated): 22 Weight Adjustment For: No Adjustment BMI Categories: Normal Weight (BMI 18.5-24.9) Nutrition Diagnosis: Altered nutrition-related lab values related to renal dysfunction as evidenced by lab values Nutrition Interventions: Nutrition Education/Counseling: Education declined Coordination of Nutrition Care: Continue to monitor while inpatient Goals: Goals: Meet at least 75% of estimated needs, by next RD assessment Nutrition Monitoring and Evaluation: Behavioral-Environmental Outcomes: None Identified Food/Nutrient Intake Outcomes: Food and Nutrient Intake Physical Signs/Symptoms Outcomes: Biochemical Data, Chewing or Swallowing, GI Status, Nausea or Vomiting, Skin, Weight, Nutrition Focused Physical Findings, Fluid Status or Edema, Hemodynamic Status Discharge Planning: Too soon to determine Sheela Adan RD Contact: *[phone] * Selena Carlisle PA-C - 08/15/2024 12:10 PM EST [facility] Nephrology Progress Note Subjective/ 44 y.o. year old male who we are seeing in consultation for CKD stage 3b. Interval History Per RN patient occasionally refusing medications Laying in bed, reports breathing feels a little better Continues to decline swan guided therapy, also declining continuous infusion of bumex gtt per cardiology recommendations Laying flat in bed, reports breathing feels improved Remains on RA, non-productive cough persists Blood pressures acceptable UOP improving LE edema persists Patient educated on the importance of limiting his oral fluid intake while being treated with acuteheart failure exacerbation, remains on 2 L fluid restriction ROS Otherwise negative No interval changes to [facility]. All interval notes/labs/imaging reviewed. Objective/ Vitals: 08/15/24 0510 08/15/24 0730 08/15/24 0850 08/15/24 1103 BP: 111/81 107/76 131/82 BP Location: Right arm Left arm Right arm Patient Position: Lying Lying Lying Pulse: 83 102 55 Resp: 16 16 20 Temp: 37 C (98.6 F) 36.3 C (97.3 F) 36.3 C (97.3 F) TempSrc: Temporal Temporal Temporal SpO2: 92% 98% 98% Weight: Height: 1.854 m (6' 1) 24HR INTAKE/OUTPUT: Intake/Output Summary (Last 24 hours) at 08/15/2024 1210 Last data filed at 08/15/2024 1103 Gross per 24 hour Intake 12 ml Output 2825 ml Net -2813 ml Physical Exam Constitutional: Appearance: Normal appearance. HENT: Head: Normocephalic and atraumatic. Mouth/Throat: Mouth: Mucous membranes are moist. Eyes: General: No scleral icterus. Neck: Vascular: JVD present. Cardiovascular: Rate and Rhythm: Normal rate and regular rhythm. Pulmonary: Effort: Pulmonary effort is normal. Breath sounds: Normal breath sounds. Comments: Breathing comfortably on RA CTAb anteriorly Abdominal: General: Bowel sounds are normal. Tenderness: There is no abdominal tenderness. Musculoskeletal: Cervical back: Neck supple. Right lower leg: Edema (1+) present. Left lower leg: Edema (1+) present. Skin: General: Skin is warm and dry. Neurological: Mental Status: He is alert and oriented to person, place, and time. Psychiatric: Mood and Affect: Mood normal. Thought Content: Thought content normal. Scheduled Meds:apixaban, 5 mg, Oral, BID bumetanide, 3 mg, IntraVENous, TID AC hydrALAZINE, 25 mg, Oral, Once hydrALAZINE, 50 mg, Oral, TID isosorbide dinitrate, 10 mg, Oral, Once isosorbide dinitrate, 20 mg, Oral, TID melatonin, 3 mg, Oral, Nightly potassium chloride CR, 40 mEq, Oral, Daily [Held by provider] sodium bicarbonate, 1,300 mg, Oral, BID Continuous Infusions: PRN Meds:.PRN medications: acetaminophen OR acetaminophen, ondansetron ODT OR ondansetron, polyethylene glycol (PEG) 3350 Data/ Recent Labs 08/13/24 0924 08/14/24 1036 08/15/24 0630 WBC 7.4 7.3 8.1 HGB 13.8 13.8 14.7 HCT 40.9 41.7 43.5 MCV 98.1 101.0* 99.3* PLT 246 258 258 Recent Labs 08/13/24 0924 08/14/24 1036 08/15/24 0630 NA 136 138 137 K 3.7 3.3* 3.6 CL 105 102 102 CO2 20* 26 24 GLUCOSE 165* 151* 104* MG -- 1.6 -- BUN 47* 39* 37* CREATININE 2.24* 2.17* 1.94* Assessment/ SCHUYLER on CKD stage 3b N19.7, I13.10, N18.32 Hyponatremia: hypervolemic E87.1: resolved Hypokalemia E87.6: resolved NAGMA E87.21: resolved Chronic HFrEF I50.22 HTN in CKD I12.9 Hepatic steatosis Plan/ -Renal function beginning to improve, baseline ~ 1.7 -BUN improving with more aggressive diuresis, c/w CRS -Continue to trend creatinine and monitor urine output closely -Recommend daily standing weights -Defer management of diuresis to cardiology: noted patient's refusal for swan guided therapy and refusal of bumex gtt making medical management more difficult -Patient volume up on exam, bumex increased to 3 mg IV TID -Serial trend NT pro BNPs, 16,000 >> 10,000 -Hypokalemia resolved s/p supplementation, started on 40 mEq po kcl daily while receiving aggressive IV diuresis -Monitor urine output closely, need strict I&Os -Rest of management per primary team Plan d/w patient and primary team We will follow. Please do not hesitate to call with any questions or concerns. DAVID Bajwa, RAGHAVC [facility] This note is not finalized until authorized by Attending physician. Cosigned by Saul Briones MD at 08/15/2024 6:07 PM EST Associated attestation - Saul Briones MD - 08/15/2024 6:07 PM EST Notes reviewed and plan discussed with the PA. Agree with above note except Any variance is noted below. Saul Briones MD [facility] [phone] * Edgar Celaya MD - 08/15/2024 9:17 AM EST Hospitalist Progress Note 08/15/2024 Subjective: Admit Date: 08/09/2024 PCP: No primary care provider on file. Room#: W5-543/W5-543 A BRIEF HOSPITAL COURSE: Carlo Medina is a 44 y.o. male with history of HTN, HLD, CAD, NICM/HFrEF, CKD 3, PE, noncompliance who presented to ED on 08/09/24 for chest pain, SOB, abdominal pain, and lightheadedness. In ED, initial labs significant for BUN 35, Cr 1.94, ALP 194, AST/ALT 52/95, WBC 8.8 wnl, Hb 14.2, HS troponin 31, BNP 16,371. EKG showed sinus tachycardia. CXR showed enlarged cardiac silhouette similar to previous exam. Given IV morphine and zofran in ED. Admitted for further evaluation and management. Renal US showed findings compatible with medical renal disease similar to comparison, no significant hydronephrosis, and small amount of perihepatic fluid. Cardiology consulted/following, started GDMT, recommended swan guided therapy if patient does not improve with PO meds, but patient adamantly refusing swan. Nephrology consulted/following. Notified by [facility] that patient's insurance is out of network, so called [facility] transfer line and discussed with hospitalist; patient accepted for transferto [facility] pending bed availability. Interval History: Patient laying in bed, Aox3, on room air. States that he is doing okay. Reports that SOB has improved, but reports worsening leg swelling. Currently denies fever, chills, chest pain. Case and plan discussed with patient and bedside nurse. Questions answered. Adult diet Regular; No Added Salt (3-4 gm); 2000 ml 24HR INTAKE/OUTPUT: Intake/Output Summary (Last 24 hours) at 08/15/2024 0917 Last data filed at 08/15/2024 0600 Gross per 24 hour Intake 12 ml Output 2625 ml Net -2613 ml Past Medical History: Past Medical History: Diagnosis Date Acute HFrEF (heart failure with reduced ejection fraction) ([facility]) 06/13/2024 Acute kidney injury superimposed on CKD ([facility]) ([facility]) 07/03/2024 At risk for obstructive sleep apnea 05/31/2024 o/p sleep study recommended during admission CHF (congestive heart failure) ([facility]) CKD (chronic kidney disease) H/O noncompliance with medical treatment, presenting hazards to health 06/19/2024 HFrEF (heart failure with reduced ejection fraction) ([facility]) 04/28/2024 History of left bundle branch block (LBBB) 06/19/2024 Hypercholesteremia Hypertension Left against medical advice 08/04/2024 Noncompliance 06/19/2024 NSTEMI (non-ST elevated myocardial infarction) ([facility]) 07/11/2024 Potential for deficient knowledge of congestive heart failure 08/05/2024 Pulmonary embolism ([facility]) Pulmonary vascular congestion 04/28/2024 Sinus tachycardia 06/19/2024 LABS: CBC: Recent Labs 08/13/2492308/14/24103508/15/24 0630 WBC 7.4 7.3 8.1 RBC 4.17* 4.13* 4.38* HGB 13.8 13.8 14.7 HCT 40.9 41.7 43.5 MCV 98.1 101.0* 99.3* RDW 13.2 13.3 13.3 PLT 246 258 258 BMP: Recent Labs 08/13/2492308/14/246 08/15/24 0630 NA 136 138 137 K 3.7 3.3* 3.6 CL 105 102 102 CO2 20* 26 24 BUN 47* 39* 37* CREATININE 2.24* 2.17* 1.94* GLUCOSE 165* 151* 104* CALCIUM 8.4 8.2* 8.3* ANIONGAP 11 10 11 LIVER PROFILE: Recent Labs 08/13/2492308/14/24103508/15/24 0630 AST 38* 36* 32 ALT 83* 73* 69* BILITOT 2.9* 2.1* 1.9* ALKPHOS 232* 230* 223* PROT 5.7* 5.5* 6.0* PT/INR: No results for input(s): PROTIME, INR in the last 72 hours. CARDIAC ENZYMES: No results for input(s): TROPONINI in the last 72 hours. Procalcitonin: No results found for: PROCAL COVID-19 PCR: No results for input(s): COVID19 in the last 72 hours. Objective: Vitals: BP 107/76 (BP Location: Left arm, Patient Position: Lying) Pulse 102 Temp 36.3 C (97.3 F) (Temporal) Resp 16 Ht 6' 1 (1.854 m) Wt 167 lb 9.6 oz (76 kg) SpO2 98% BMI 22.11 kg/m Pulse Ox: SpO2 Av.3 % Min: 92 % Max: 99 % Supplemental O2: O2 Flow Rate (L/min): 2 L/min Physical Exam Constitutional: General: He is not in acute distress. Appearance: He is not toxic-appearing. HENT: Head: Normocephalic. Right Ear: External ear normal. Left Ear: External ear normal. Eyes: Extraocular Movements: Extraocular movements intact. Neck: Vascular: JVD present. Cardiovascular: Rate and Rhythm: Regular rhythm. Tachycardia present. Pulmonary: Effort: Pulmonary effort is normal. No respiratory distress. Abdominal: General: Bowel sounds are normal. Palpations: Abdomen is soft. Musculoskeletal: General: Normal range of motion. Right lower leg: Edema present. Left lower leg: Edema present. Skin: General: Skin is warm and dry. Neurological: Mental Status: He is alert and oriented to person, place, and time. Medications: Scheduled PRN apixaban, 5 mg, Oral, BID bumetanide, 3 mg, IntraVENous, TID AC hydrALAZINE, 25 mg, Oral, Once hydrALAZINE, 50 mg, Oral, TID isosorbide dinitrate, 10 mg, Oral, Once isosorbide dinitrate, 20 mg, Oral, TID melatonin, 3 mg, Oral, Nightly potassium chloride CR, 40 mEq, Oral, Daily [Held by provider] sodium bicarbonate, 1,300 mg, Oral, BID PRN medications: acetaminophen OR acetaminophen, ondansetron ODT OR ondansetron, polyethylene glycol (PEG) 3350 Continuous Assessment Acute, acute on chronic, unstable/uncontrolled chronic problems/diagnoses: # Chest pain, improved # Hx of biventricular dysfunction, acute on chronic HFrEF - TTE (06/15/24): LVEF 20%, severe globalhypokinesis, dilated RV with moderately reduced systolic fxn, 1+ AR, 2+ MR, moderately elevated RVSP. BNP 16,371 on admission. CXR showed enlarged cardiac silhouette similar to previous exam. TTE (08/11/24): LVEF 18%, 1+ AR, 2+ MR, 3+ TR, severely dilated LA, moderately dilated RA. BNP 16,371 (08/09)-> 10,757 (08/12) # Abdominal pain, improved # Lactic acidosis, resolved # Hyponatremia, improved # Hypokalemia, improved # Transaminitis # Hyperbilirubinemia # Noncompliance with medical treatments Stable chronic problems affecting care, new non-acute diagnoses: # HTN # HLD # CAD # CKD 3 - Renal US (08/10/24) showed findings compatible with medical renal disease similar to comparison, no significant hydronephrosis, and small amount of perihepatic fluid. # Hx of PE - on Eliquis Plan As a result of the above findings & factors, the following mgmt was pursued: - Telemetry monitoring - Cardiology/HF following. Noted discussed the need for swan guided therapy but he is adamantly refusing a swan. On IV Bumex 3 mg TID, PO Hydralazine 50 mg TID and Isordil 20 mg TID, but patient has been refusing meds. Holding Coreg due to possible low output HF. Recs noted. - Discussed importance of adherence to recommended medications - Strict I/O's, daily weight - Nephrology following. Noted prognosis remains guarded given complex pathophysiology and patient not cooperative with recommended treatment plans. Recs noted. - Continue chronic medications as able. - TCC following for dispo planning. Notified by [facility] that patient's insurance is out of network and need to call [facility] [place] transfer line ([phone]) to see if we can get him transferred. Called [facility] [place] transfer line and discussed with hospitalist. Patient accepted for transfer to [facility] [place] pending bed availability which was noted could take awhile (accepting physician: Dr. Govea?). - am labs, replace lytes prn - delirium precautions: increase activity, schedule melatonin at bedtime, and limit nighttime disturbances - DVT prophylaxis: encourage ambulation and already anticoagulated Advance Directive: Full Code Anticipated Discharge - Date - TBD - Location - TBD - patient accepted for transfer to [facility] [place] pending bed availability as patient out of network with insurance here - Pending the following - clinical course, building performance consultant recs Extended Emergency Contact Information Primary Emergency Contact: Kaitlin Hicks Mobile Relation: Significant Other Secondary Emergency Contact: Indira Medina Mobile Relation: Sister Edgar Celaya MD Division of Hospitalist Medicine [facility] * Luis SelfBRONSON jorge - 08/15/2024 8:05 AM EST [facility] Cardiology /Electrophysiology Progress Note HPI / Interval History: Patient is a 44 year old male with a PMH significant for HFrEF, NICM, HTN who presented to [facility] on 08/09/24 secondary to SOB, chest pain, and abdominal pain. EKG sinus tachycardia. Troponin negative. NT Pro BNP 50369. Cardiology consulted and Pt found to be in ADHF, cold on exam. RHC was recommended, Pt refused. Pt has been intermittently refusing medications/ treatment while inpatient. He has been started on IV diuresis. [facility] May 2024 with no significant CAD. Echocardiogram this admission with LVEF=18%, global hypokinesis, low normal RV function, 2+ MR, trivial pericardial effusion. Today he reports he is feeling a little better. He denies nausea/ vomiting. He is able to sleep more supine. He denies shortness of breath, leg swelling. Denies chest pain. He appears comfortable on exam. Assessment/Plan #Acute on chronic HFrEF, NICM, stage C. NYHA - unable to assess as Pt not OOB -Refused RHC this admission -On Bumex 3 mg IV TID, he is warm and hypervolemic on exam, + JVD to earlobe, he refused gtt this admission, continue current diuretic for now -Currently on hydralazine 25 mg TID, Isordil 10 mg 20 mg TID-> plan to continue, I explained thereason/ use for these medications to Pt, he reports understanding, he is noted to be intermittentlyrefusing these this admission, he only received one dose yesterday -Continue to hold BB -Last labs with improving renal function, Scr 1.9, BUN 37, Na and K+ WNL, CTM -Strict I&Os, daily standing weights, 1.8 g Na diet, and 64 oz fluid restriction #SCHUYLER on CKD III -Likely secondary to CRS, CTM with ongoing diuresis -Last last with improvement in renal function, Scr 2.1-> 1.9 with diuresis -Nephrology following #DVT -On Eliquis 5 mg BID -Last Hgb stable HF will continue to follow. Medications: apixaban, 5 mg, Oral, BID bumetanide, 3 mg, IntraVENous, TID AC hydrALAZINE, 25 mg, Oral, Once hydrALAZINE, 50 mg, Oral, TID isosorbide dinitrate, 10 mg, Oral, Once isosorbide dinitrate, 20 mg, Oral, TID melatonin, 3 mg, Oral, Nightly potassium chloride CR, 40 mEq, Oral, Daily [Held by provider] sodium bicarbonate, 1,300 mg, Oral, BID Infusion Medications: Physical Examination: Vitals: 08/15/24 0100 08/15/24 0510 08/15/24 0730 08/15/24 0850 BP: 111/81 107/76 BP Location: Right arm Left arm Patient Position: Lying Lying Pulse: 83 102 Resp: 16 16 Temp: 37 C (98.6 F) 36.3 C (97.3 F) TempSrc: Temporal Temporal SpO2: 92% 98% Weight: 167 lb 9.6 oz (76 kg) Height: 6' 1 (1.854 m) Intake/Output Summary (Last 24 hours) at 08/15/2024 1051 Last data filed at 08/15/2024 0600 Gross per 24 hour Intake 12 ml Output 2625 ml Net -2613 ml Patient Vitals for the past 168 hrs: Weight Weight Method 08/15/24 0100 167 lb 9.6 oz (76 kg) Standing scale 08/14/24 0649 168 lb 6.4 oz (76.4 kg) Standing scale 08/13/24 0619 174 lb 3.2 oz (79 kg) Standing scale 08/12/24 0244 175 lb 6.4 oz (79.6 kg) Standing scale 08/11/24 1042 173 lb (78.5 kg) -- 08/11/24 0100 173 lb 8 oz (78.7 kg) -- 08/10/24 2101 173 lb 3.2 oz (78.6 kg) Standing scale 08/09/24 2114 164 lb (74.4 kg) Stated Physical Exam Vitals reviewed. Constitutional: General: He is not in acute distress. HENT: Head: Normocephalic and atraumatic. Neck: Vascular: JVD present. Comments: JVP to earlobe Cardiovascular: Rate and Rhythm: Normal rate and regular rhythm. Pulmonary: Breath sounds: No wheezing, rhonchi or rales. Musculoskeletal: Right lower leg: Edema (trace) present. Left lower leg: Edema (trace) present. Skin: General: Skin is warm. Neurological: Mental Status: He is alert. Mental status is at baseline. Laboratory Tests: TROPONIN I, CONVENTIONAL SENSITIVITY TROPONIN I Date Value Ref Range Status 05/28/2024 0.037 (H) <0.034 ng/mL Final 05/28/2024 0.051 (H) <0.034 ng/mL Final 04/28/2024 0.032 <0.034 ng/mL Final 04/28/2024 0.025 <0.034 ng/mL Final 04/28/2024 0.020 <0.034 ng/mL Final TROPONIN I, HIGH SENSITIVITY Troponin HS Serial Baseline Date Value Ref Range Status 08/09/2024 31 <=35 ng/L Final Comment: In individuals presenting with symptoms > 2h, a baseline troponin <= 5 ng/L suggests acute cardiac injury is unlikely and further serial testing is generally not indicated. 08/05/2024 22 <=35 ng/L Final Comment: In individuals presenting with symptoms > 2h, a baseline troponin <= 5 ng/L suggests acute cardiac injury is unlikely and further serial testing is generally not indicated. 07/23/2024 33 <=35 ng/L Final 07/11/2024 218 (HH) <=35 ng/L Final 07/03/2024 39 (H) <=35 ng/L Final 2h Troponin HS (Serial 2nd Troponin) Date Value Ref Range Status 08/11/2024 22 <=35 ng/L Final Comment: 2h troponin (2nd troponin) samples collected between 1h 40 min and 2h and 20 min of the baseline collection time can be utilized to interpret delta troponins as per Summa algorithms. Samples collected outside this timeframe need to be interpreted clinically. 08/05/2024 19 <=35 ng/L Final Comment: 2h troponin (2nd troponin) samples collected between 1h 40 min and 2h and 20 min of the baseline collection time can be utilized to interpret delta troponins as per Summa algorithms. Samples collected outside this timeframe need to be interpreted clinically. Rising or falling troponin delta between 2 - 15 ng/L as compared to baseline value requires a 3rd serial troponin 07/23/2024 30 <=35 ng/L Final 07/11/2024 221 (HH) <=35 ng/L Final 07/03/2024 33 <=35 ng/L Final Absolute Delta (2nd - Baseline Troponin) Date Value Ref Range Status 07/11/2024 3 <=2 ng/L Final Comment: A troponin delta greater than or equal to 15 ng/L is significant for acute cardiac injury. Values less than 15 but greater than 2 are an intermediate change requiring a 3rd serial troponin to be drawn. Values less than or equal to 2 indicate acute cardiac injury is not likely, see external algorithmsfor further clinical guidance. 07/03/2024 -6 <=2 ng/L Final Comment: This specimen was collected more than 20 minutes away from the 2 hour target. Use of this delta with the 2 hour troponin algorithm is not recommended, individualized clinical assessment is needed. A troponin delta greater than or equal to 15 ng/L is significant for acute cardiac injury. Values less than 15 but greater than 2 are an intermediate change requiring a 3rd serial troponin to be drawn. Values less than or equal to 2 indicate acute cardiac injury is not likely, see external algorithmsfor further clinical guidance. 06/13/2024 3 <=2 ng/L Final Comment: This specimen was collected more than 20 minutes away from the 2 hour target. Use of this delta with the 2 hour troponin algorithm is not recommended, individualized clinical assessment is needed. A troponin delta greater than or equal to 15 ng/L is significant for acute cardiac injury. Values less than 15 but greater than 2 are an intermediate change requiring a 3rd serial troponin to be drawn. Values less than or equal to 2 indicate acute cardiac injury is not likely, see external algorithmsfor further clinical guidance. 4h Troponin HS (Serial 3rd Troponin) Date Value Ref Range Status 07/12/2024 218 (HH) <=35 ng/L Final 06/13/2024 49 (H) <=35 ng/L Final Absolute Delta (3rd - 2nd Troponin) Date Value Ref Range Status 07/12/2024 -3 <=2 ng/L Final Comment: A troponin delta greater than or equal to 15 ng/L is suggestive of acute cardiac injury. Values less than 15, see clinical guidance for ED and Inpatient algorithms. 06/13/2024 -4 <=2 ng/L Final Comment: This specimen was collected more than 20 minutes away from the 2 hour target. Use of this delta with the 2 hour troponin algorithm is not recommended, individualized clinical assessment is needed. A troponin delta greater than or equal to 15 ng/L is suggestive of acute cardiac injury. Values less than 15, see clinical guidance for ED and Inpatient algorithms. Recent Labs 08/13/24 0908/14/24 1036 08/15/24 0630 NA 136 138 137 K 3.7 3.3* 3.6 CL 105 102 102 CO2 20* 26 24 BUN 47* 39* 37* CREATININE 2.24* 2.17* 1.94* Recent Labs 08/13/24 0924 08/14/24 1036 08/15/24 0630 WBC 7.4 7.3 8.1 HGB 13.8 13.8 14.7 HCT 40.9 41.7 43.5 MCV 98.1 101.0* 99.3* PLT 246 258 258 Recent Labs 08/12/24 1332 BNP 10,757* No results for input(s): TRIG, HDL, LDLCALC, CHOL in the last 72 hours. No results found for: LDLCHOLESTER Lab Results Component Value Date TSH 3.18 07/23/2024 EF BP Date Value Ref Range Status 08/11/2024 18 (A) 55 - 100 % Final 08/09/24 TRANSTHORACIC ECHOCARDIOGRAM (TTE) COMPLETE (CONTRAST/BUBBLE/3D PRN) 08/11/2024 12:41 PM (Final) Interpretation Summary Left Ventricle: Left ventricle is severely dilated. Normal wall thickness. Severely reduced left ventricular systolic function. EF by 2D Simpsons Biplane is 18%. Global longitudinal strain is reducedwith a value of -4.1%. Global hypokinesis present. Right Ventricle: Not well visualized. Right ventricle is dilated. Low normal systolic function. Aortic Valve: Mild (1+) regurgitation. Mitral Valve: Moderate (2+) regurgitation. Tricuspid Valve: Moderately severe (3+) regurgitation. Left Atrium: Left atrium is severely dilated. Right Atrium: Right atrium is moderately dilated. Pericardium: Trivial pericardial effusion present. IVC/SVC: IVC diameter is dilated and decreases less than 50% during inspiration; therefore the estimated right atrial pressure is elevated (~15 mmHg). Signed by: Ana Singletary on 08/11/2024 12:41 PM Other reports reviewed: Cardiac Tests: Telemetry findings reviewed: NSR EF BP Date Value Ref Range Status 08/11/2024 18 (A) 55 - 100 % Final Luis Zavaleta PA-C Date Of Service 08/15/2024 * Ofelia Villalobos MD - 08/14/2024 3:14 PM EST [facility] Cardiology /Electrophysiology Progress Note HPI / Interval History: Carlo Medina is a 44 year old male with PMH of HFrEF 2/2 NICM ([facility] no CAD 05/2024), HTN, HLD CKD III, DVTs on OAC), and poor health literacy/ poor medication/follow up compliance who presented to [facility] on 08/09/24 with complaints of chest pain, abd pain, SOB and lightheadedness found to be in ADHF with volume overload. This is his 9th admission for ADHF since 01/2024. Throughout admission he has been intermittently refusing medications and blood work. Today, Carlo feels well. He denies any abdominal pain. Denies any chest pain, shortness of breath, nausea, vomiting, presyncope symptoms. Labs, vitals and telemetry reviewed. He continues to refuselabs and medications but after a long conversation this morning, he agrees to start taking medications for his heart failure. Assessment/Plan Acute on chronic HFrEF 2/2 NICM. Stage C - Presented in ADHF with volume overload in the setting of non compliance. - He has been intermittently refusing labs, medications as well as a RHC. OP notes suggest poor healthcare literacy - His IV diuretics were increased to bumex 2mg IV BID on 08/12, and he has had a total of net 2.4 L out over the past 24 hours. Still volume overloaded, and will need aggressive diuresis. Continue Bumex 3 mg IV 3 times daily. He refused Bumex gtt. - For GDMT: On hydralazine 50 mg 3 times daily. Refuses to take Isordil. We discussed the need for valsartan or Entresto once renal function improves-he refused to try it. -Refuses Bumex intermittently. Refuses Bumex drip. Refuses right heart cath and [place] guided therapyif needed. - Continue to hold BB d/t possible low output HF. - No MRA or SGLT-2 in the setting of worsening renal function. - Strict I/Os, daily standing weights, 1.8L fluid restriction, 2gm Na diet DVT - Continue OAC SCHUYLER on CKDIII - Likely 2/2 CRS vs low output HF. Will attempt more aggressive IV diuresis. Heart failure team will continue to follow. Medications: apixaban, 5 mg, Oral, BID bumetanide, 3 mg, IntraVENous, TID AC hydrALAZINE, 25 mg, Oral, Once hydrALAZINE, 50 mg, Oral, TID isosorbide dinitrate, 10 mg, Oral, Once isosorbide dinitrate, 20 mg, Oral, TID melatonin, 3 mg, Oral, Nightly potassium chloride CR, 40 mEq, Oral, Daily [Held by provider] sodium bicarbonate, 1,300 mg, Oral, BID Infusion Medications: Physical Examination: Vitals: 08/14/24 0649 08/14/24 0725 08/14/24 1040 08/14/24 1311 BP: 100/77 105/78 108/86 BP Location: Right arm Right arm Left arm Patient Position: Lying Lying Pulse: 104 111 50 Resp: 16 16 Temp: 36.2 C (97.2 F) 36.1 C (97 F) TempSrc: Temporal Temporal SpO2: 98% 98% Weight: 168 lb 6.4 oz (76.4 kg) Height: Intake/Output Summary (Last 24 hours) at 08/14/2024 1514 Last data filed at 08/13/2024 2131 Gross per 24 hour Intake 430 ml Output 1400 ml Net -970 ml Patient Vitals for the past 168 hrs: Weight Weight Method 08/14/24 0649 168 lb 6.4 oz (76.4 kg) Standing scale 08/13/24 0619 174 lb 3.2 oz (79 kg) Standing scale 08/12/24 0244 175 lb 6.4 oz (79.6 kg) Standing scale 08/11/24 1042 173 lb (78.5 kg) -- 08/11/24 0100 173 lb 8 oz (78.7 kg) -- 08/10/24 2101 173 lb 3.2 oz (78.6 kg) Standing scale 08/09/24 2114 164 lb (74.4 kg) Stated Physical Exam Constitutional: Appearance: Normal appearance. Neck: Vascular: JVD (to his earlobe) present. Cardiovascular: Rate and Rhythm: Normal rate and regular rhythm. Pulses: Normal pulses. Heart sounds: Normal heart sounds. Pulmonary: Effort: Pulmonary effort is normal. Breath sounds: Normal breath sounds. Abdominal: General: Bowel sounds are normal. Palpations: Abdomen is soft. Musculoskeletal: Right lower leg: Edema present. Left lower leg: Edema present. Skin: General: Skin is warm and dry. Capillary Refill: Capillary refill takes less than 2 seconds. Neurological: General: No focal deficit present. Mental Status: He is alert and oriented to person, place, and time. Laboratory Tests: TROPONIN I, CONVENTIONAL SENSITIVITY TROPONIN I Date Value Ref Range Status 05/28/2024 0.037 (H) <0.034 ng/mL Final 05/28/2024 0.051 (H) <0.034 ng/mL Final 04/28/2024 0.032 <0.034 ng/mL Final 04/28/2024 0.025 <0.034 ng/mL Final 04/28/2024 0.020 <0.034 ng/mL Final TROPONIN I, HIGH SENSITIVITY Troponin HS Serial Baseline Date Value Ref Range Status 08/09/2024 31 <=35 ng/L Final Comment: In individuals presenting with symptoms > 2h, a baseline troponin <= 5 ng/L suggests acute cardiac injury is unlikely and further serial testing is generally not indicated. 08/05/2024 22 <=35 ng/L Final Comment: In individuals presenting with symptoms > 2h, a baseline troponin <= 5 ng/L suggests acute cardiac injury is unlikely and further serial testing is generally not indicated. 07/23/2024 33 <=35 ng/L Final 07/11/2024 218 (HH) <=35 ng/L Final 07/03/2024 39 (H) <=35 ng/L Final 2h Troponin HS (Serial 2nd Troponin) Date Value Ref Range Status 08/11/2024 22 <=35 ng/L Final Comment: 2h troponin (2nd troponin) samples collected between 1h 40 min and 2h and 20 min of the baseline collection time can be utilized to interpret delta troponins as per [employer] algorithms. Samples collected outside this timeframe need to be interpreted clinically. 08/05/2024 19 <=35 ng/L Final Comment: 2h troponin (2nd troponin) samples collected between 1h 40 min and 2h and 20 min of the baseline collection time can be utilized to interpret delta troponins as per [employer] algorithms. Samples collected outside this timeframe need to be interpreted clinically. Rising or falling troponin delta between 2 - 15 ng/L as compared to baseline value requires a 3rd serial troponin 07/23/2024 30 <=35 ng/L Final 07/11/2024 221 (HH) <=35 ng/L Final 07/03/2024 33 <=35 ng/L Final Absolute Delta (2nd - Baseline Troponin) Date Value Ref Range Status 07/11/2024 3 <=2 ng/L Final Comment: A troponin delta greater than or equal to 15 ng/L is significant for acute cardiac injury. Values less than 15 but greater than 2 are an intermediate change requiring a 3rd serial troponin to be drawn. Values less than or equal to 2 indicate acute cardiac injury is not likely, see external algorithmsfor further clinical guidance. 07/03/2024 -6 <=2 ng/L Final Comment: This specimen was collected more than 20 minutes away from the 2 hour target. Use of this delta with the 2 hour troponin algorithm is not recommended, individualized clinical assessment is needed. A troponin delta greater than or equal to 15 ng/L is significant for acute cardiac injury. Values less than 15 but greater than 2 are an intermediate change requiring a 3rd serial troponin to be drawn. Values less than or equal to 2 indicate acute cardiac injury is not likely, see external algorithmsfor further clinical guidance. 06/13/2024 3 <=2 ng/L Final Comment: This specimen was collected more than 20 minutes away from the 2 hour target. Use of this delta with the 2 hour troponin algorithm is not recommended, individualized clinical assessment is needed. A troponin delta greater than or equal to 15 ng/L is significant for acute cardiac injury. Values less than 15 but greater than 2 are an intermediate change requiring a 3rd serial troponin to be drawn. Values less than or equal to 2 indicate acute cardiac injury is not likely, see external algorithmsfor further clinical guidance. 4h Troponin HS (Serial 3rd Troponin) Date Value Ref Range Status 07/12/2024 218 (HH) <=35 ng/L Final 06/13/2024 49 (H) <=35 ng/L Final Absolute Delta (3rd - 2nd Troponin) Date Value Ref Range Status 07/12/2024 -3 <=2 ng/L Final Comment: A troponin delta greater than or equal to 15 ng/L is suggestive of acute cardiac injury. Values less than 15, see clinical guidance for ED and Inpatient algorithms. 06/13/2024 -4 <=2 ng/L Final Comment: This specimen was collected more than 20 minutes away from the 2 hour target. Use of this delta with the 2 hour troponin algorithm is not recommended, individualized clinical assessment is needed. A troponin delta greater than or equal to 15 ng/L is suggestive of acute cardiac injury. Values less than 15, see clinical guidance for ED and Inpatient algorithms. Recent Labs 08/12/2413308/13/2492308/14/24 1036 NA 136 136 138 K 4.3 3.7 3.3* CL 106 105 102 CO2 19* 20* 26 BUN 42* 47* 39* CREATININE 2.23* 2.24* 2.17* Recent Labs 08/12/24 0134 08/13/24 0924 08/14/24 1036 WBC 8.0 7.4 7.3 HGB 14.0 13.8 13.8 HCT 42.2 40.9 41.7 MCV 101.0* 98.1 101.0* PLT 263 246 258 Recent Labs 08/12/24 1332 BNP 10,757* No results for input(s): TRIG, HDL, LDLCALC, CHOL in the last 72 hours. No results found for: LDLCHOLESTER Lab Results Component Value Date TSH 3.18 07/23/2024 EF BP Date Value Ref Range Status 08/11/2024 18 (A) 55 - 100 % Final 08/09/24 TRANSTHORACIC ECHOCARDIOGRAM (TTE) COMPLETE (CONTRAST/BUBBLE/3D PRN) 08/11/2024 12:41 PM (Final) Interpretation Summary Left Ventricle: Left ventricle is severely dilated. Normal wall thickness. Severely reduced left ventricular systolic function. EF by 2D Simpsons Biplane is 18%. Global longitudinal strain is reducedwith a value of -4.1%. Global hypokinesis present. Right Ventricle: Not well visualized. Right ventricle is dilated. Low normal systolic function. Aortic Valve: Mild (1+) regurgitation. Mitral Valve: Moderate (2+) regurgitation. Tricuspid Valve: Moderately severe (3+) regurgitation. Left Atrium: Left atrium is severely dilated. Right Atrium: Right atrium is moderately dilated. Pericardium: Trivial pericardial effusion present. IVC/SVC: IVC diameter is dilated and decreases less than 50% during inspiration; therefore the estimated right atrial pressure is elevated (~15 mmHg). Signed by: Ana Singletary on 08/11/2024 12:41 PM Other reports reviewed: Cardiac Tests: Telemetry findings reviewed: NSR with NSVT EF BP Date Value Ref Range Status 08/11/2024 18 (A) 55 - 100 % Final Aracelis La MD Date Of Service 08/14/2024 I, Dr. Villalobos, saw and evaluated the patient on 08/14/2014. I personally obtained the reardon and critical portions of the history and physical exam. I reviewed the chart, the fellow's documentation, anddiscussed the patient with the fellow. I agree with the fellow's medical decision making and have edited the note to reflect my clinical findings and my assessment and plan. * Selena Carlisle PA-C - 08/14/2024 1:39 PM EST [facility] Progress Note Subjective/ 44 y.o. year old male who we are seeing in consultation for CKD stage 3b. Interval History Per RN patient occasionally refusing medications Laying in bed, reports breathing feels a little better Continues to decline swan guided therapy, also declining continuous infusion of bumex gtt per cardiology recommendations Continues to endorse CARRERA Remains on RA Blood pressures acceptable UOP improving LE edema persists ROS Otherwise negative No interval changes to PFSH. All interval notes/labs/imaging reviewed. Objective/ Vitals: 08/14/24 0649 08/14/24 0725 08/14/24 1040 08/14/24 1311 BP: 100/77 105/78 108/86 BP Location: Right arm Right arm Left arm Patient Position: Lying Lying Pulse: 104 111 50 Resp: 16 16 Temp: 36.2 C (97.2 F) 36.1 C (97 F) TempSrc: Temporal Temporal SpO2: 98% 98% Weight: 76.4 kg (168 lb 6.4 oz) Height: 24HR INTAKE/OUTPUT: Intake/Output Summary (Last 24 hours) at 08/14/2024 1339 Last data filed at 08/13/2024 2131 Gross per 24 hour Intake 610 ml Output 2150 ml Net -1540 ml Physical Exam Constitutional: Appearance: Normal appearance. HENT: Head: Normocephalic and atraumatic. Mouth/Throat: Mouth: Mucous membranes are moist. Eyes: General: No scleral icterus. Neck: Vascular: JVD present. Cardiovascular: Rate and Rhythm: Normal rate and regular rhythm. Pulmonary: Effort: Pulmonary effort is normal. Breath sounds: Normal breath sounds. Comments: Breathing comfortably on RA CTAb anteriorly Abdominal: General: Bowel sounds are normal. Tenderness: There is no abdominal tenderness. Musculoskeletal: Cervical back: Neck supple. Right lower leg: Edema (1+) present. Left lower leg: Edema (1+) present. Skin: General: Skin is warm and dry. Neurological: Mental Status: He is alert and oriented to person, place, and time. Psychiatric: Mood and Affect: Mood normal. Thought Content: Thought content normal. Scheduled Meds:apixaban, 5 mg, Oral, BID bumetanide, 3 mg, IntraVENous, TID AC hydrALAZINE, 25 mg, Oral, Once hydrALAZINE, 50 mg, Oral, TID isosorbide dinitrate, 10 mg, Oral, Once isosorbide dinitrate, 20 mg, Oral, TID melatonin, 3 mg, Oral, Nightly potassium chloride CR, 40 mEq, Oral, Daily [Held by provider] sodium bicarbonate, 1,300 mg, Oral, BID Continuous Infusions: PRN Meds:.PRN medications: acetaminophen OR acetaminophen, ondansetron ODT OR ondansetron, polyethylene glycol (PEG) 3350 Data/ Recent Labs 08/12/24 0134 08/13/24 0924 08/14/24 1036 WBC 8.0 7.4 7.3 HGB 14.0 13.8 13.8 HCT 42.2 40.9 41.7 MCV 101.0* 98.1 101.0* PLT 263 246 258 Recent Labs 08/12/24 0134 08/13/24 0924 08/14/24 1036 NA 136 136 138 K 4.3 3.7 3.3* CL 106 105 102 CO2 19* 20* 26 GLUCOSE 118* 165* 151* MG -- -- 1.6 BUN 42* 47* 39* CREATININE 2.23* 2.24* 2.17* Assessment/ SCHUYLER on CKD stage 3b N19.7, I13.10, N18.32 Hyponatremia: hypervolemic? E87.1: resolved Hypokalemia E87.6 NAGMA E87.21: resolved Chronic HFrEF I50.22 HTN in CKD I12.9 Hepatic steatosis Plan/ -Renal function relatively stable, baseline ~ 1.7 -BUN improving with more aggressive diuresis, c/w CRS -Continue to trend creatinine and monitor urine output closely -Recommend daily standing weights -Defer management of diuresis to cardiology: noted patient's refusal for swan guided therapy and refusal of bumex gtt making medical management more difficult -Patient volume up on exam, bumex increased to 3 mg IV TID -Serial trend NT pro BNPs, -Hypokalemia noted, replete with 40 meq po Kcl, will likely require daily potassium supplementationwith ongoing aggressive IV diuresis -Monitor urine output closely, need strict I&Os -Metabolic acidosis resolved, discontinue bicarb tablets and monitor off -Rest of management per primary team Plan d/w patient and RN on floor We will follow. Please do not hesitate to call with any questions or concerns. DAVID Bajwa PA-C [facility] Office This note is not finalized until authorized by Attending physician. Cosigned by Saul Briones MD at 08/14/2024 4:02 PM EST Associated attestation - Saul Briones MD - 08/14/2024 4:02 PM EST Notes reviewed and plan discussed with the PA. Agree with above note except Any variance is noted below. Saul Briones MD [facility] [phone] * Edgar Celaya MD - 08/14/2024 8:38 AM EST Hospitalist Progress Note 08/14/2024 Subjective: Admit Date: 08/09/2024 PCP: No primary care provider on file. Room#: W5543/[facility] A BRIEF HOSPITAL COURSE: Carlo Medina is a 44 y.o. male with history of HTN, HLD, CAD, NICM/HFrEF, CKD 3, PE, noncompliance who presented to ED on 08/09/24 for chest pain, SOB, abdominal pain, and lightheadedness. In ED, initial labs significant for BUN 35, Cr 1.94, ALP 194, AST/ALT 52/95, WBC 8.8 wnl, Hb 14.2, HS troponin 31, BNP 16,371. EKG showed sinus tachycardia. CXR showed enlarged cardiac silhouette similar to previous exam. Given IV morphine and zofran in ED. Admitted for further evaluation and management. Renal US showed findings compatible with medical renal disease similar to comparison, no significant hydronephrosis, and small amount of perihepatic fluid. Cardiology consulted/following, started GDMT, recommended swan guided therapy if patient does not improve with PO meds, but patient adamantly refusing swan. Nephrology consulted/following. Notified by [facility] that patient's insurance is out of network, so called [facility] transfer line and discussed with hospitalist; patient accepted for transferto [facility] pending bed availability. Interval History: Overnight, patient refused labs and medications (IV Bumex, Hydralazine, and Isordil). Patient laying in bed, Aox3, on room air. Currently reports that SOB has improved. States that he was urinating alot. Reports that medications was making him sick so he declined them. Currently denies fever, chills, chest pain. Case and plan discussed with patient. Questions answered. Adult diet Regular; No Added Salt (3-4 gm); 1500 ml 24HR INTAKE/OUTPUT: Intake/Output Summary (Last 24 hours) at 08/14/2024 0839 Last data filed at 08/13/2024 2131 Gross per 24 hour Intake 960 ml Output 2950 ml Net -1990 ml Past Medical History: Past Medical History: Diagnosis Date Acute HFrEF (heart failure with reduced ejection fraction) ([facility]) 06/13/2024 Acute kidney injury superimposed on CKD ([facility]) ([facility]) 07/03/2024 At risk for obstructive sleep apnea 05/31/2024 o/p sleep study recommended during admission CHF (congestive heart failure) ([facility]) CKD (chronic kidney disease) H/O noncompliance with medical treatment, presenting hazards to health 06/19/2024 HFrEF (heart failure with reduced ejection fraction) ([facility]) 04/28/2024 History of left bundle branch block (LBBB) 06/19/2024 Hypercholesteremia Hypertension Left against medical advice 08/04/2024 Noncompliance 06/19/2024 NSTEMI (non-ST elevated myocardial infarction) ([facility]) 07/11/2024 Potential for deficient knowledge of congestive heart failure 08/05/2024 Pulmonary embolism ([facility]) Pulmonary vascular congestion 04/28/2024 Sinus tachycardia 06/19/2024 LABS: CBC: Recent Labs 08/12/24 0134 08/13/24 0924 WBC 8.0 7.4 RBC 4.18* 4.17* HGB 14.0 13.8 HCT 42.2 40.9 MCV 101.0* 98.1 RDW 13.2 13.2 PLT 263 246 BMP: Recent Labs 08/12/24 0134 08/13/24 0924 NA 136 136 K 4.3 3.7 CL 106 105 CO2 19* 20* BUN 42* 47* CREATININE 2.23* 2.24* GLUCOSE 118* 165* CALCIUM 8.2* 8.4 ANIONGAP 11 11 LIVER PROFILE: Recent Labs 08/12/24 0134 08/13/24 0924 AST 47* 38* ALT 86* 83* BILITOT 2.0* 2.9* ALKPHOS 225* 232* PROT 5.5* 5.7* PT/INR: No results for input(s): PROTIME, INR in the last 72 hours. CARDIAC ENZYMES: No results for input(s): TROPONINI in the last 72 hours. Procalcitonin: No results found for: PROCAL COVID-19 PCR: No results for input(s): COVID19 in the last 72 hours. Objective: Vitals: BP 100/77 (BP Location: Right arm, Patient Position: Lying) Pulse 104 Temp 36.2 C (97.2F) (Temporal) Resp 16 Ht 6' 1 (1.854 m) Wt 168 lb 6.4 oz (76.4 kg) SpO2 98% BMI 22.22 kg/m Pulse Ox: SpO2 Av.1 % Min: 97 % Max: 100 % Supplemental O2: O2 Flow Rate (L/min): 2 L/min Physical Exam Constitutional: General: He is not in acute distress. Appearance: He is not toxic-appearing. HENT: Head: Normocephalic. Right Ear: External ear normal. Left Ear: External ear normal. Eyes: Extraocular Movements: Extraocular movements intact. Cardiovascular: Rate and Rhythm: Regular rhythm. Tachycardia present. Pulmonary: Effort: Pulmonary effort is normal. No respiratory distress. Abdominal: General: Bowel sounds are normal. Palpations: Abdomen is soft. Musculoskeletal: General: Normal range of motion. Right lower leg: Edema present. Left lower leg: Edema present. Skin: General: Skin is warm and dry. Neurological: Mental Status: He is alert and oriented to person, place, and time. Medications: Scheduled PRN apixaban, 5 mg, Oral, BID bumetanide, 3 mg, IntraVENous, TID AC hydrALAZINE, 25 mg, Oral, Once hydrALAZINE, 50 mg, Oral, TID isosorbide dinitrate, 10 mg, Oral, Once isosorbide dinitrate, 20 mg, Oral, TID melatonin, 3 mg, Oral, Nightly sodium bicarbonate, 1,300 mg, Oral, BID PRN medications: acetaminophen OR acetaminophen, ondansetron ODT OR ondansetron, polyethylene glycol (PEG) 3350 Continuous Assessment Acute, acute on chronic, unstable/uncontrolled chronic problems/diagnoses: # Chest pain, improved # Hx of biventricular dysfunction, acute on chronic HFrEF - TTE (06/15/24): LVEF 20%, severe globalhypokinesis, dilated RV with moderately reduced systolic fxn, 1+ AR, 2+ MR, moderately elevated RVSP. BNP 16,371 on admission. CXR showed enlarged cardiac silhouette similar to previous exam. TTE (08/11/24): LVEF 18%, 1+ AR, 2+ MR, 3+ TR, severely dilated LA, moderately dilated RA. BNP 16,371 (08/09)-> 10,757 (08/12) # Abdominal pain, improved # Lactic acidosis, resolved # Hyponatremia, improved # Transaminitis # Hyperbilirubinemia # Noncompliance with medical treatments Stable chronic problems affecting care, new non-acute diagnoses: # HTN # HLD # CAD # CKD 3 - Renal US (08/10/24) showed findings compatible with medical renal disease similar to comparison, no significant hydronephrosis, and small amount of perihepatic fluid. # Hx of PE - on Eliquis Plan As a result of the above findings & factors, the following mgmt was pursued: - Telemetry monitoring - Cardiology/HF following. Noted discussed the need for swan guided therapy but he is adamantly refusing a swan. On IV Bumex 3 mg TID. On Hydralazine 50 mg TID and Isordil 20 mg TID, but patient has been refusing meds. Holding Coreg due to possible low output HF. Recs noted. - Discussed importance of adherence to recommended medications - Strict I/O's, daily weight - Nephrology following. Noted prognosis remains guarded given complex pathophysiology and patient not cooperative with recommended treatment plans. Recs noted. - Continue chronic medications as able. - [facility] following for dispo planning. Notified by [facility] that patient's insurance is out of network and need to call [facility] [place] transfer line ([phone]) to see if we can get him transferred. Called [facility] [place] transfer line and discussed with hospitalist. Patient accepted for transfer to [facility] [place] pending bed availability which was noted could take awhile (accepting physician: Dr. Govea?). - am labs, replace lytes prn - delirium precautions: increase activity, schedule melatonin at bedtime, and limit nighttime disturbances - DVT prophylaxis: encourage ambulation and already anticoagulated Advance Directive: Full Code Anticipated Discharge - Date - TBD - Location - TBD - patient accepted for transfer to [facility] [place] pending bed availability as patient out of network with insurance here - Pending the following - clinical course, building performance consultant recs Extended Emergency Contact Information Primary Emergency Contact: Kaitlin Hicks Mobile Relation: Significant Other Secondary Emergency Contact: Indira Medina Mobile Relation: Sister Edgar Celaya MD Division of Hospitalist Medicine [facility] * THOMAS Rogel CNP - 08/13/2024 12:40 PM EST CARE PROGRESSION NOTE This patient was seen as a hospital courtesy for improved patient care and care progression at the request of Dr. Celaya. Based on current plan of care for patient, level of care was updated to progressive care. Thank you for allowing me to participate in the medical care of your patient. ISAAC INTERVENTIONS [x] Care Coordination & Progression [] Nursing Function [x] Orders Placed [] Symptom Assessment [] Patient Experience [] Patient / Caregiver Conversation * Edgar Celaya MD - 08/13/2024 10:02 AM EST Hospitalist Progress Note 08/13/2024 Subjective: Admit Date: 08/09/2024 PCP: No primary care provider on file. Room#: W5543/[facility] A BRIEF HOSPITAL COURSE: Carlo Medina is a 44 y.o. male with history of HTN, HLD, CAD, NICM/HFrEF, CKD 3, PE, noncompliance who presented to ED on 08/09/24 for chest pain, SOB, abdominal pain, and lightheadedness. In ED, initial labs significant for BUN 35, Cr 1.94, ALP 194, AST/ALT 52/95, WBC 8.8 wnl, Hb 14.2, HS troponin 31, BNP 16,371. EKG showed sinus tachycardia. CXR showed enlarged cardiac silhouette similar to previous exam. Given IV morphine and zofran in ED. Admitted for further evaluation and management. Renal US showed findings compatible with medical renal disease similar to comparison, no significant hydronephrosis, and small amount of perihepatic fluid. Cardiology consulted/following, started GDMT, recommended swan guided therapy if patient does not improve with PO meds, but patient adamantly refusing swan. Nephrology consulted/following. Notified by [facility] that patient's insurance is out of network, so called [facility] transfer line and discussed with hospitalist; patient accepted for transferto [facility] pending bed availability. Interval History: No overnight issues. Patient laying in bed, Aox3, on room air. States that he is not doing well today. Reports SOB, worsening leg swelling, and some abdominal discomfort. Currently denies fever, chills, chest pain. Case and plan discussed with patient, bedside nurse, and [facility]. Questions answered. Adult diet Regular; No Added Salt (3-4 gm); 1500 ml 24HR INTAKE/OUTPUT: Intake/Output Summary (Last 24 hours) at 08/13/2024 1002 Last data filed at 08/13/2024 0833 Gross per 24 hour Intake 1040 ml Output 1850 ml Net -810 ml Past Medical History: Past Medical History: Diagnosis Date Acute HFrEF (heart failure with reduced ejection fraction) ([facility]) 06/13/2024 Acute kidney injury superimposed on CKD ([facility]) ([facility]) 07/03/2024 At risk for obstructive sleep apnea 05/31/2024 o/p sleep study recommended during admission CHF (congestive heart failure) ([facility]) CKD (chronic kidney disease) H/O noncompliance with medical treatment, presenting hazards to health 06/19/2024 HFrEF (heart failure with reduced ejection fraction) ([facility]) 04/28/2024 History of left bundle branch block (LBBB) 06/19/2024 Hypercholesteremia Hypertension Left against medical advice 08/04/2024 Noncompliance 06/19/2024 NSTEMI (non-ST elevated myocardial infarction) ([facility]) 07/11/2024 Potential for deficient knowledge of congestive heart failure 08/05/2024 Pulmonary embolism ([facility]) Pulmonary vascular congestion 04/28/2024 Sinus tachycardia 06/19/2024 LABS: CBC: Recent Labs 08/11/24 0217 08/12/24 0134 08/13/24 0924 WBC 8.2 8.0 7.4 RBC 4.20* 4.18* 4.17* HGB 15.0 13.9 14.0 13.8 HCT 42.0 42.2 40.9 MCV 100.0* 101.0* 98.1 RDW 13.0 13.2 13.2 PLT 243 263 246 BMP: Recent Labs 08/11/2421608/12/2413308/13/24 0924 NA 130* 136 136 K 4.0 4.3 3.7 CL 102 106 105 CO2 18* 19* 20* BUN 39* 42* 47* CREATININE 1.80* 2.23* 2.24* GLUCOSE 94 118* 165* CALCIUM 8.4 8.2* 8.4 ANIONGAP 10 11 11 LIVER PROFILE: Recent Labs 08/11/2421608/12/2413308/13/2424 AST 47* 47* 38* ALT 86* 86* 83* BILITOT 2.6* 2.0* 2.9* ALKPHOS 201* 225* 232* PROT 5.6* 5.5* 5.7* PT/INR: Recent Labs 08/11/24216 PROTIME 15.7* INR 1.4* CARDIAC ENZYMES: No results for input(s): TROPONINI in the last 72 hours. Procalcitonin: No results found for: PROCAL COVID-19 PCR: No results for input(s): COVID19 in the last 72 hours. Objective: Vitals: BP 105/77 (BP Location: Right arm, Patient Position: Lying) Pulse 103 Temp 36.3 C (97.4F) (Temporal) Resp 18 Ht 6' 1 (1.854 m) Wt 174 lb 3.2 oz (79 kg) SpO2 98% BMI 22.98 kg/m Pulse Ox: SpO2 Av.2 % Min: 95 % Max: 100 % Supplemental O2: O2 Flow Rate (L/min): 2 L/min Physical Exam Constitutional: General: He is not in acute distress. Appearance: He is not toxic-appearing. HENT: Head: Normocephalic. Right Ear: External ear normal. Left Ear: External ear normal. Eyes: Extraocular Movements: Extraocular movements intact. Neck: Vascular: JVD present. Cardiovascular: Rate and Rhythm: Regular rhythm. Tachycardia present. Pulmonary: Effort: Pulmonary effort is normal. No respiratory distress. Abdominal: General: Bowel sounds are normal. Palpations: Abdomen is soft. Musculoskeletal: General: Normal range of motion. Right lower leg: Edema present. Left lower leg: Edema present. Skin: General: Skin is warm and dry. Neurological: Mental Status: He is alert and oriented to person, place, and time. Medications: Scheduled PRN apixaban, 5 mg, Oral, BID bumetanide, 3 mg, IntraVENous, TID AC hydrALAZINE, 25 mg, Oral, Once hydrALAZINE, 50 mg, Oral, TID isosorbide dinitrate, 10 mg, Oral, Once isosorbide dinitrate, 20 mg, Oral, TID melatonin, 3 mg, Oral, Nightly sodium bicarbonate, 1,300 mg, Oral, BID PRN medications: acetaminophen OR acetaminophen, ondansetron ODT OR ondansetron, polyethylene glycol (PEG) 3350 Continuous Assessment Acute, acute on chronic, unstable/uncontrolled chronic problems/diagnoses: # Chest pain, improved # Hx of biventricular dysfunction, acute on chronic HFrEF - TTE (06/15/24): LVEF 20%, severe globalhypokinesis, dilated RV with moderately reduced systolic fxn, 1+ AR, 2+ MR, moderately elevated RVSP. BNP 16,371 on admission. CXR showed enlarged cardiac silhouette similar to previous exam. TTE (08/11/24): LVEF 18%, 1+ AR, 2+ MR, 3+ TR, severely dilated LA, moderately dilated RA. BNP 16,371 (08/09)-> 10,757 (08/12) # Abdominal pain # Lactic acidosis, improved # Hyponatremia, improved # Transaminitis # Hyperbilirubinemia # Hx of noncompliance Stable chronic problems affecting care, new non-acute diagnoses: # HTN # HLD # CAD # CKD 3 - Renal US (08/10/24) showed findings compatible with medical renal disease similar to comparison, no significant hydronephrosis, and small amount of perihepatic fluid. # Hx of PE - on Eliquis Plan As a result of the above findings & factors, the following mgmt was pursued: - Telemetry monitoring - Cardiology/HF following. Noted discussed the need for swan guided therapy but he is adamantly refusing a swan. Increased IV Bumex 2 mg BID -> 3 mg TID. On Hydralazine 50 mg TID and Isordil 20 mgTID, but refusing meds occasionally. Holding Coreg due to possible low output HF. Recs noted. - Discussed importance of adherence to recommended medications - Strict I/O's, daily weight - Nephrology following. Noted prognosis remains guarded given complex pathophysiology and patient not cooperative with recommended treatment plans. Recs noted. - Continue chronic medications as able. - TCC following for dispo planning. Discussed with TCC today. Notified by [facility] that patient's insurance is out of network and need to call [facility] [place] transfer line ([phone]) to see if we can get him transferred. Called [facility] [place] transfer line and discussed with hospitalist. Patient accepted for transferto [facility] [place] pending bed availability which was noted could take awhile (accepting physician: Dr. Govea?). - am labs, replace lytes prn - delirium precautions: increase activity, schedule melatonin at bedtime, and limit nighttime disturbances - DVT prophylaxis: encourage ambulation and already anticoagulated Advance Directive: Full Code Anticipated Discharge - Date - TBD - Location - TBD - patient accepted for transfer to [facility] [place] pending bed availability as patient out of network with insurance here - Pending the following - clinical course, building performance consultant recs Extended Emergency Contact Information Primary Emergency Contact: Kaitlin Hicks Mobile Relation: Significant Other Secondary Emergency Contact: Indira Medina Mobile Relation: Sister Edgar Celaya MD Division of Hospitalist Medicine [facility] * Selena Carlisle PA-C - 08/13/2024 9:39 AM EST [facility] Progress Note Subjective/ 44 y.o. year old male who we are seeing in consultation for CKD stage 3b. Interval History Per RN patient occasionally refusing medications Laying in bed Continues to decline swan guided therapy, also declining continuous infusion of bumex gtt per cardiology recommendations Reports abdominal discomfort improved this morning Continues to endorse CARRERA Remains on RA Blood pressures acceptable UOP suboptimal LE edema appears worse today ROS Otherwise negative No interval changes to [facility]. All interval notes/labs/imaging reviewed. Objective/ Vitals: 08/12/24 0458 08/13/24 0320 08/13/24 0619 08/13/24 0833 BP: 137/82 108/80 105/77 BP Location: Left arm Right arm Right arm Patient Position: Lying Lying Lying Pulse: 73 103 103 Resp: 16 18 18 Temp: 36.4 C (97.6 F) 36.2 C (97.1 F) 36.3 C (97.4 F) TempSrc: Temporal Temporal Temporal SpO2: 100% 95% 98% Weight: 79 kg (174 lb 3.2 oz) Height: 24HR INTAKE/OUTPUT: Intake/Output Summary (Last 24 hours) at 08/13/2024 0940 Last data filed at 08/13/2024 0833 Gross per 24 hour Intake 1040 ml Output 1850 ml Net -810 ml Physical Exam Constitutional: Appearance: Normal appearance. HENT: Head: Normocephalic and atraumatic. Mouth/Throat: Mouth: Mucous membranes are moist. Eyes: General: No scleral icterus. Neck: Vascular: JVD present. Cardiovascular: Rate and Rhythm: Normal rate and regular rhythm. Pulmonary: Effort: Pulmonary effort is normal. Breath sounds: Normal breath sounds. Comments: Breathing comfortably on RA CTAb anteriorly Abdominal: General: Bowel sounds are normal. There is distension. Tenderness: There is abdominal tenderness. Musculoskeletal: Cervical back: Neck supple. Right lower leg: Edema (1+) present. Left lower leg: Edema (1+) present. Skin: General: Skin is warm and dry. Neurological: Mental Status: He is alert and oriented to person, place, and time. Psychiatric: Mood and Affect: Mood normal. Affect is flat. Thought Content: Thought content normal. Scheduled Meds:apixaban, 5 mg, Oral, BID bumetanide, 2 mg, IntraVENous, Once hydrALAZINE, 25 mg, Oral, Once hydrALAZINE, 50 mg, Oral, TID isosorbide dinitrate, 10 mg, Oral, Once isosorbide dinitrate, 20 mg, Oral, TID melatonin, 3 mg, Oral, Nightly sodium bicarbonate, 1,300 mg, Oral, BID Continuous Infusions:bumetanide, 1 mg/hr PRN Meds:.PRN medications: acetaminophen OR acetaminophen, ondansetron ODT OR ondansetron, polyethylene glycol (PEG) 3350 Data/ Recent Labs 08/11/24 0217 08/12/24 0134 08/13/24 0924 WBC 8.2 8.0 7.4 HGB 15.0 13.9 14.0 13.8 HCT 42.0 42.2 40.9 MCV 100.0* 101.0* 98.1 PLT 243 263 246 Recent Labs 08/11/24 0217 08/12/24 0134 NA 130* 136 K 4.0 4.3 CL 102 106 CO2 18* 19* GLUCOSE 94 118* BUN 39* 42* CREATININE 1.80* 2.23* Assessment/ SCHUYLER on CKD stage 3b N19.7, I13.10, N18.32 Hyponatremia: hypervolemic? E87.1: resolved NAGMA E87.21 Chronic HFrEF I50.22 HTN in CKD I12.9 Hepatic steatosis Plan/ -Renal function worsening, up to 2.23, baseline ~ 1.7 -BUN rising as well, cont to monitor -Continue to trend creatinine and monitor urine output closely -Recommend daily standing weights -Defer management of diuresis to cardiology: noted patient's refusal for swan guided therapy and refusal of bumex gtt making medical management more difficult -Patient volume up on exam, bumex increased to 3 mg IV TID -Serial trend NT pro BNPs, -Monitor urine output closely, need strict I&Os -Coreg placed on hold per cardiology, agree -Metabolic acidosis noted, c/w po bicarb tablets -Hyponatremia resolved -Rest of management per primary team Plan d/w patient, RN on floor and 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 Please do not hesitate to call with any questions or concerns. DAVID Bajwa PA-C [facility] Office This note is not finalized until authorized by Attending physician. Cosigned by Saul Briones MD at 08/13/2024 4:46 PM EST Associated attestation - Saul Briones MD - 08/13/2024 4:46 PM EST Patient was seen and examined by me. Notes reviewed and plan discussed with the PA. Agree with above note except Any variance is noted below. Ac on Chronic HFrEF I50.23 Pt remains in vol overload. Response to iv diuretics suboptimal. Increased dose by cards: agree. Discussed w him: explained that given suboptimal response to diuretics and worsening renal function, it might be best tro try bumex gtt and RHC. Explained risks of further deterioration. Declined. Saul Briones MD [facility] [phone] * Sepideh THOMAS Townsend - WHITING MACHINE OPERATOR - 08/13/2024 7:22 AM EST [facility] Cardiology /Electrophysiology Progress Note HPI / Interval History: Carlo Medina is a 44 year old male with PMH of HFrEF 2/2 NICM ([facility] no CAD 05/2024), HTN, HLD CKD III, DVTs on OAC), and poor health literacy/ poor medication/follow up compliance who presented to [facility] on 08/09/24 with complaints of chest pain, abd pain, SOB and lightheadedness found to be in ADHF with volume overload. This is his 9th admission for ADHF since 01/2024. Throughout admission he has been intermittently refusing medications and blood work. Today, Carlo reports not feeling good due to ongoing abdominal pain. He describes it as burning and puts to his lower abd, sometimes worse with eating, along with intermittent nausea and vomiting. He denies any current SOB but says it comes and goes Tells me he wont take the isordil because it will make him throw up. Agrees to let RN draw his blood. Assessment/Plan Acute on chronic HFrEF 2/2 NICM. Stage C - Presented in ADHF with volume overload in the setting of non compliance. - He has been intermittently refusing labs, medications as well as a RHC. OP notes suggest poor healthcare literacy - His IV diuretics were increased to bumex 2mg IV BID on 08/12 and there are no accurate I/Os or blood work this morning. Pt reports he doesn't feel he is urinating any more than he normally does. On exam he has clear JVD to his ear lobe. I will increase his bumex to 3mg IV TID --> RN informed mehe refused a gtt. - Has not been OOB yet this AM - unable to assess NYHA class - For GDMT: he is on hydralazine 50mg TID which he is occasionally agreeing to take. Reusing isordil. - Continue to hold BB d/t possible low output HF. LA 2.4 down to 2.1 on 08/12. - No MRA or SGLT-2 in the setting of worsening renal function. - Strict I/Os, daily standing weights, 1.8L fluid restriction, 2gm Na diet DVT - Continue OAC SCHUYLER on CKDIII - Likely 2/2 CRS vs low output HF. Will attempt more aggressive IV diuresis. Will discuss plan with Dr. Villalobos. HF will continue to follow. Medications: apixaban, 5 mg, Oral, BID bumetanide, 3 mg, IntraVENous, TID AC hydrALAZINE, 25 mg, Oral, Once hydrALAZINE, 50 mg, Oral, TID isosorbide dinitrate, 10 mg, Oral, Once isosorbide dinitrate, 20 mg, Oral, TID melatonin, 3 mg, Oral, Nightly sodium bicarbonate, 1,300 mg, Oral, BID Infusion Medications: Physical Examination: Vitals: 08/12/24 2258 08/13/24 0320 08/13/24 0619 08/13/24 0833 BP: 137/82 108/80 105/77 BP Location: Left arm Right arm Right arm Patient Position: Lying Lying Lying Pulse: 73 103 103 Resp: 16 18 18 Temp: 36.4 C (97.6 F) 36.2 C (97.1 F) 36.3 C (97.4 F) TempSrc: Temporal Temporal Temporal SpO2: 100% 95% 98% Weight: 174 lb 3.2 oz (79 kg) Height: Intake/Output Summary (Last 24 hours) at 08/13/2024 0949 Last data filed at 08/13/2024 0833 Gross per 24 hour Intake 1040 ml Output 1850 ml Net -810 ml Patient Vitals for the past 168 hrs: Weight Weight Method 08/13/24 0619 174 lb 3.2 oz (79 kg) Standing scale 08/12/24 0244 175 lb 6.4 oz (79.6 kg) Standing scale 08/11/24 1042 173 lb (78.5 kg) -- 08/11/24 0100 173 lb 8 oz (78.7 kg) -- 08/10/24 2101 173 lb 3.2 oz (78.6 kg) Standing scale 08/09/24 2114 164 lb (74.4 kg) Stated Physical Exam Constitutional: Appearance: Normal appearance. Neck: Vascular: JVD (to his earlobe) present. Cardiovascular: Rate and Rhythm: Normal rate and regular rhythm. Pulses: Normal pulses. Heart sounds: Normal heart sounds. Pulmonary: Effort: Pulmonary effort is normal. Breath sounds: Normal breath sounds. Abdominal: General: Bowel sounds are normal. Palpations: Abdomen is soft. Musculoskeletal: Right lower leg: Edema present. Left lower leg: Edema present. Skin: General: Skin is warm and dry. Capillary Refill: Capillary refill takes less than 2 seconds. Neurological: General: No focal deficit present. Mental Status: He is alert and oriented to person, place, and time. Laboratory Tests: TROPONIN I, CONVENTIONAL SENSITIVITY TROPONIN I Date Value Ref Range Status 05/28/2024 0.037 (H) <0.034 ng/mL Final 05/28/2024 0.051 (H) <0.034 ng/mL Final 04/28/2024 0.032 <0.034 ng/mL Final 04/28/2024 0.025 <0.034 ng/mL Final 04/28/2024 0.020 <0.034 ng/mL Final TROPONIN I, HIGH SENSITIVITY Troponin HS Serial Baseline Date Value Ref Range Status 08/09/2024 31 <=35 ng/L Final Comment: In individuals presenting with symptoms > 2h, a baseline troponin <= 5 ng/L suggests acute cardiac injury is unlikely and further serial testing is generally not indicated. 08/05/2024 22 <=35 ng/L Final Comment: In individuals presenting with symptoms > 2h, a baseline troponin <= 5 ng/L suggests acute cardiac injury is unlikely and further serial testing is generally not indicated. 07/23/2024 33 <=35 ng/L Final 07/11/2024 218 (HH) <=35 ng/L Final 07/03/2024 39 (H) <=35 ng/L Final 2h Troponin HS (Serial 2nd Troponin) Date Value Ref Range Status 08/11/2024 22 <=35 ng/L Final Comment: 2h troponin (2nd troponin) samples collected between 1h 40 min and 2h and 20 min of the baseline collection time can be utilized to interpret delta troponins as per [employer] algorithms. Samples collected outside this timeframe need to be interpreted clinically. 08/05/2024 19 <=35 ng/L Final Comment: 2h troponin (2nd troponin) samples collected between 1h 40 min and 2h and 20 min of the baseline collection time can be utilized to interpret delta troponins as per [employer] algorithms. Samples collected outside this timeframe need to be interpreted clinically. Rising or falling troponin delta between 2 - 15 ng/L as compared to baseline value requires a 3rd serial troponin 07/23/2024 30 <=35 ng/L Final 07/11/2024 221 (HH) <=35 ng/L Final 07/03/2024 33 <=35 ng/L Final Absolute Delta (2nd - Baseline Troponin) Date Value Ref Range Status 07/11/2024 3 <=2 ng/L Final Comment: A troponin delta greater than or equal to 15 ng/L is significant for acute cardiac injury. Values less than 15 but greater than 2 are an intermediate change requiring a 3rd serial troponin to be drawn. Values less than or equal to 2 indicate acute cardiac injury is not likely, see external algorithmsfor further clinical guidance. 07/03/2024 -6 <=2 ng/L Final Comment: This specimen was collected more than 20 minutes away from the 2 hour target. Use of this delta with the 2 hour troponin algorithm is not recommended, individualized clinical assessment is needed. A troponin delta greater than or equal to 15 ng/L is significant for acute cardiac injury. Values less than 15 but greater than 2 are an intermediate change requiring a 3rd serial troponin to be drawn. Values less than or equal to 2 indicate acute cardiac injury is not likely, see external algorithmsfor further clinical guidance. 06/13/2024 3 <=2 ng/L Final Comment: This specimen was collected more than 20 minutes away from the 2 hour target. Use of this delta with the 2 hour troponin algorithm is not recommended, individualized clinical assessment is needed. A troponin delta greater than or equal to 15 ng/L is significant for acute cardiac injury. Values less than 15 but greater than 2 are an intermediate change requiring a 3rd serial troponin to be drawn. Values less than or equal to 2 indicate acute cardiac injury is not likely, see external algorithmsfor further clinical guidance. 4h Troponin HS (Serial 3rd Troponin) Date Value Ref Range Status 07/12/2024 218 (HH) <=35 ng/L Final 06/13/2024 49 (H) <=35 ng/L Final Absolute Delta (3rd - 2nd Troponin) Date Value Ref Range Status 07/12/2024 -3 <=2 ng/L Final Comment: A troponin delta greater than or equal to 15 ng/L is suggestive of acute cardiac injury. Values less than 15, see clinical guidance for ED and Inpatient algorithms. 06/13/2024 -4 <=2 ng/L Final Comment: This specimen was collected more than 20 minutes away from the 2 hour target. Use of this delta with the 2 hour troponin algorithm is not recommended, individualized clinical assessment is needed. A troponin delta greater than or equal to 15 ng/L is suggestive of acute cardiac injury. Values less than 15, see clinical guidance for ED and Inpatient algorithms. Recent Labs 08/11/2421608/12/24133 NA 130* 136 K 4.0 4.3 CL 102 106 CO2 18* 19* BUN 39* 42* CREATININE 1.80* 2.23* Recent Labs 08/11/2421608/12/2413308/13/24 0924 WBC 8.2 8.0 7.4 HGB 15.0 13.9 14.0 13.8 HCT 42.0 42.2 40.9 MCV 100.0* 101.0* 98.1 PLT 243 263 246 Recent Labs 08/12/24 1332 BNP 10,757* No results for input(s): TRIG, HDL, LDLCALC, CHOL in the last 72 hours. No results found for: LDLCHOLESTER Lab Results Component Value Date TSH 3.18 07/23/2024 EF BP Date Value Ref Range Status 08/11/2024 18 (A) 55 - 100 % Final 08/09/24 TRANSTHORACIC ECHOCARDIOGRAM (TTE) COMPLETE (CONTRAST/BUBBLE/3D PRN) 08/11/2024 12:41 PM (Final) Interpretation Summary Left Ventricle: Left ventricle is severely dilated. Normal wall thickness. Severely reduced left ventricular systolic function. EF by 2D Simpsons Biplane is 18%. Global longitudinal strain is reducedwith a value of -4.1%. Global hypokinesis present. Right Ventricle: Not well visualized. Right ventricle is dilated. Low normal systolic function. Aortic Valve: Mild (1+) regurgitation. Mitral Valve: Moderate (2+) regurgitation. Tricuspid Valve: Moderately severe (3+) regurgitation. Left Atrium: Left atrium is severely dilated. Right Atrium: Right atrium is moderately dilated. Pericardium: Trivial pericardial effusion present. IVC/SVC: IVC diameter is dilated and decreases less than 50% during inspiration; therefore the estimated right atrial pressure is elevated (~15 mmHg). Signed by: Ana Singletary on 08/11/2024 12:41 PM Other reports reviewed: Cardiac Tests: Telemetry findings reviewed: NSR with NSVT EF BP Date Value Ref Range Status 08/11/2024 18 (A) 55 - 100 % Final THOMAS Chapa CNP Date Of Service 08/13/2024 * Edgar Celaya MD - 08/12/2024 11:10 AM EST Hospitalist Progress Note 08/12/2024 Subjective: Admit Date: 08/09/2024 PCP: No primary care provider on file. Room#: W5-543/W5-543 A BRIEF HOSPITAL COURSE: Carlo Medina is a 44 y.o. male with history of HTN, HLD, CAD, NICM/HFrEF, CKD 3, PE, noncompliance who presented to ED on 08/09/24 for chest pain, SOB, abdominal pain, and lightheadedness. In ED, initial labs significant for BUN 35, Cr 1.94, ALP 194, AST/ALT 52/95, WBC 8.8 wnl, Hb 14.2, HS troponin 31, BNP 16,371. EKG showed sinus tachycardia. CXR showed enlarged cardiac silhouette similar to previous exam. Given IV morphine and zofran in ED. Admitted for further evaluation and management. Renal US showed findings compatible with medical renal disease similar to comparison, no significant hydronephrosis, and small amount of perihepatic fluid. Cardiology consulted/following, started GDMT, recommended swan guided therapy if patient does not improve with PO meds, but patient adamantly refusing swan. Nephrology consulted/following. Interval History: No overnight issues. Patient laying flat in bed, Aox3, and on room air. States that he is doing okay. Reports dyspnea with exertion, some nausea and ongoing abdominal discomfort. Currently denies fever, chills, chest pain, SOB at rest. States that leg swelling has improved, but reports low urine output. Case and plan discussed with patient and TCC. Questions answered. Notified by TCC that patient's insurance is out of network and need to call [facility] [place] transfer line ([phone]) to see if we can get him transferred. Called [facility] [place] transfer line and discussed with hospitalist. Patient accepted for transfer to [facility] [place] pending bed availability which was noted could take awhile (accepting physician: Dr. Govea?). Adult diet Regular; No Added Salt (3-4 gm); 1500 ml 24HR INTAKE/OUTPUT: Intake/Output Summary (Last 24 hours) at 08/12/2024 1111 Last data filed at 08/12/2024 0909 Gross per 24 hour Intake 480 ml Output 550 ml Net -70 ml Past Medical History: Past Medical History: Diagnosis Date Acute HFrEF (heart failure with reduced ejection fraction) ([facility]) 06/13/2024 Acute kidney injury superimposed on CKD ([facility]) ([facility]) 07/03/2024 At risk for obstructive sleep apnea 05/31/2024 o/p sleep study recommended during admission CHF (congestive heart failure) ([facility]) CKD (chronic kidney disease) H/O noncompliance with medical treatment, presenting hazards to health 06/19/2024 HFrEF (heart failure with reduced ejection fraction) ([facility]) 04/28/2024 History of left bundle branch block (LBBB) 06/19/2024 Hypercholesteremia Hypertension Left against medical advice 08/04/2024 Noncompliance 06/19/2024 NSTEMI (non-ST elevated myocardial infarction) ([facility]) 07/11/2024 Potential for deficient knowledge of congestive heart failure 08/05/2024 Pulmonary embolism ([facility]) Pulmonary vascular congestion 04/28/2024 Sinus tachycardia 06/19/2024 LABS: CBC: Recent Labs 08/09/24 2155 08/11/24 0217 08/12/24 0134 WBC 8.8 8.2 8.0 RBC 4.21* 4.20* 4.18* HGB 14.2 15.0 13.9 14.0 HCT 42.8 42.0 42.2 MCV 101.7* 100.0* 101.0* RDW 13.2 13.0 13.2 PLT 245 243 263 BMP: Recent Labs 08/09/24215408/11/2421608/12/24133 NA 139 130* 136 K 3.8 4.0 4.3 CL 104 102 106 CO2 27 18* 19* BUN 35* 39* 42* CREATININE 1.94* 1.80* 2.23* GLUCOSE 139* 94 118* CALCIUM 8.8 8.4 8.2* ANIONGAP 8 10 11 LIVER PROFILE: Recent Labs 08/09/24215408/11/2421608/12/24133 AST 52* 47* 47* ALT 95* 86* 86* BILITOT 2.2* 2.6* 2.0* ALKPHOS 194* 201* 225* PROT 6.4 5.6* 5.5* PT/INR: Recent Labs 08/11/24216 PROTIME 15.7* INR 1.4* CARDIAC ENZYMES: No results for input(s): TROPONINI in the last 72 hours. Procalcitonin: No results found for: PROCAL COVID-19 PCR: No results for input(s): COVID19 in the last 72 hours. Objective: Vitals: BP 108/76 (BP Location: Left arm, Patient Position: Lying) Pulse 101 Temp 36.4 C (97.5 F) (Temporal) Resp 20 Ht 6' 1 (1.854 m) Wt 175 lb 6.4 oz (79.6 kg) SpO2 97% BMI 23.14 kg/m Pulse Ox: SpO2 Av.7 % Min: 95 % Max: 100 % Supplemental O2: O2 Flow Rate (L/min): 2 L/min Physical Exam Constitutional: General: He is not in acute distress. Appearance: He is not toxic-appearing. HENT: Head: Normocephalic. Right Ear: External ear normal. Left Ear: External ear normal. Eyes: Extraocular Movements: Extraocular movements intact. Cardiovascular: Rate and Rhythm: Normal rate and regular rhythm. Pulmonary: Effort: Pulmonary effort is normal. No respiratory distress. Abdominal: General: Bowel sounds are normal. Palpations: Abdomen is soft. Tenderness: There is abdominal tenderness. Musculoskeletal: General: Normal range of motion. Right lower leg: Edema present. Left lower leg: Edema present. Skin: General: Skin is warm and dry. Neurological: Mental Status: He is alert and oriented to person, place, and time. Medications: Scheduled PRN apixaban, 5 mg, Oral, BID bumetanide, 1 mg, Oral, BID hydrALAZINE, 25 mg, Oral, Once hydrALAZINE, 25 mg, Oral, TID isosorbide dinitrate, 10 mg, Oral, Once isosorbide dinitrate, 10 mg, Oral, TID melatonin, 3 mg, Oral, Nightly sodium bicarbonate, 1,300 mg, Oral, BID PRN medications: acetaminophen OR acetaminophen, ondansetron ODT OR ondansetron, polyethylene glycol (PEG) 3350 Continuous Assessment Acute, acute on chronic, unstable/uncontrolled chronic problems/diagnoses: # Chest pain, improved # Hx of biventricular dysfunction, acute on chronic HFrEF - TTE (06/15/24): LVEF 20%, severe globalhypokinesis, dilated RV with moderately reduced systolic fxn, 1+ AR, 2+ MR, moderately elevated RVSP. BNP 16,371 on admission. CXR showed enlarged cardiac silhouette similar to previous exam. TTE (08/11/24): LVEF 18%, 1+ AR, 2+ MR, 3+ TR, severely dilated LA, moderately dilated RA # Abdominal pain # Hyponatremia, improved # Transaminitis # Hyperbilirubinemia # Hx of noncompliance Stable chronic problems affecting care, new non-acute diagnoses: # HTN # HLD # CAD # CKD 3 - Renal US (08/10/24) showed findings compatible with medical renal disease similar to comparison, no significant hydronephrosis, and small amount of perihepatic fluid. # Hx of PE - on Eliquis Plan As a result of the above findings & factors, the following mgmt was pursued: - Telemetry monitoring - Cardiology/HF following. Noted discussed the need for swan guided therapy if he does not improve with PO meds but he is adamantly refusing a swan. On IV Bumex 2 mg q12h, Hydralazine 50 mg TID, Isordil 20 mg TID per Cardiology. Held Coreg. Recs noted. Briefly discussed with dialysis clinical manager and HF attending today. - BNP 16,371 (08/09) -> 10,757 (08/12) - Strict I/O's, daily weight - Nephrology following. Recs noted. - Continue chronic medications as able. - TCC following for dispo planning. Discussed with TCC today. Notified by TCC that patient's insurance is out of network and need to call [facility] [place] transfer line ([phone]) to see if we can get him transferred. [facility] and discussed with hospitalist. Patient accepted for transferto [facility] [place] pending bed availability which was noted could take awhile (accepting physician: Dr. Govea?). - am labs, replace lytes prn - delirium precautions: increase activity, schedule melatonin at bedtime, and limit nighttime disturbances - DVT prophylaxis: encourage ambulation and already anticoagulated Advance Directive: Full Code Anticipated Discharge - Date - TBD - Location - TBD - patient accepted for transfer to [facility] [place] pending bed availability as patient out of network with insurance here - Pending the following - clinical course, building performance consultant recs Extended Emergency Contact Information Primary Emergency Contact: Kaitlin Hicks Mobile Relation: Significant Other Secondary Emergency Contact: Indira Medina Mobile Relation: Sister Edgar Celaya MD Division of Hospitalist Medicine [facility] * Ofelia Villalobos MD - 08/12/2024 9:33 AM EST [facility] [place] [facility] Cardiology /Electrophysiology Progress Note HPI / Interval History: Carlo Medina is a 44 y.o. male with a PMHx of HFrEF, CKD, HTN, HLD, LBBB, NSTEMI and pulmonary vascular congestion who got admitted from [facility] ED for further evaluation and management of chest pain,ADHF and SCHUYLER on CKD. In the ED, patient was afebrile, tachycardic between 110-120's, normal respirations and satting well on 2L NC. CMP showed Scr at 1.94, CBC unremarkable, [place] [address].EKG showed sinus tachycardia with left atrial enlargement. Chest x-ray showed enlarged cardiac silhouette similar to previous exam. He was given morphine 4mg x2 and Zofran 4mg x2. On assessment, patient said he has slept well last night and is feeling okay. He says the swelling in his legs have gotten better but his lower abdomen is paper cone machine tender. He had an episode of vomiting last night but says he feels better. Patient denies nausea, chest pain, lightheadedness and weakness. Assessment/Plan CHF exacerbation, EF 18% -Patient is hypervolemic, improving and warmer to touch. We discussed the need for swan guided therapy if he does not improve with po meds but he is strictly refusing a swan. We therefore tried to start him on good GDMT, including addition of hydral and isordil which he refused last night. He agrees to taking the first dose this am. Minimal urine output, may need escalation of therapy if this does not improve. - Increase Bumex 2 mg BID IV, may need escalation if he does not have enough output by tomorrow - Start hydral/isordil 25/10 right now, increase the next dose to 50/20 TID -Hold coreg since he may go into cardiogenic shock, and other GDMT (worsening renal function) - Strict I/O's - Daily Weights - Replete electrolytes as needed Medications: apixaban, 5 mg, Oral, BID bumetanide, 1 mg, Oral, BID hydrALAZINE, 25 mg, Oral, Once hydrALAZINE, 25 mg, Oral, TID isosorbide dinitrate, 10 mg, Oral, Once isosorbide dinitrate, 10 mg, Oral, TID melatonin, 3 mg, Oral, Nightly sodium bicarbonate, 1,300 mg, Oral, BID Infusion Medications: Physical Examination: Vitals: 08/11/24200308/11/24 2256 08/12/24 0244 08/12/24 0753 BP: 106/75 108/77 107/81 111/78 BP Location: Left arm Left arm Left arm Left arm Patient Position: Lying Lying Lying Sitting Pulse: 107 54 99 74 Resp: 16 16 16 20 Temp: 36.8 C (98.3 F) 36.3 C (97.3 F) 36.1 C (97 F) 36.3 C (97.4 F) TempSrc: Temporal Temporal Temporal Temporal SpO2: 98% 95% 98% 98% Weight: 175 lb 6.4 oz (79.6 kg) Height: Intake/Output Summary (Last 24 hours) at 08/12/2024 0934 Last data filed at 08/12/2024 0909 Gross per 24 hour Intake 480 ml Output 550 ml Net -70 ml Patient Vitals for the past 168 hrs: Weight Weight Method 08/12/24 0244 175 lb 6.4 oz (79.6 kg) Standing scale 08/11/24 1042 173 lb (78.5 kg) -- 08/11/24 0100 173 lb 8 oz (78.7 kg) -- 08/10/24 2101 173 lb 3.2 oz (78.6 kg) Standing scale 08/09/24 2114 164 lb (74.4 kg) Stated Physical Exam Constitutional: Appearance: Normal appearance. Cardiovascular: Rate and Rhythm: Normal rate and regular rhythm. Pulses: Normal pulses. Heart sounds: Normal heart sounds. Pulmonary: Effort: Pulmonary effort is normal. Breath sounds: Normal breath sounds. Musculoskeletal: Right lower leg: Edema (1+) present. Left lower leg: Edema (1+) present. Neurological: Mental Status: He is alert and oriented to person, place, and time. Laboratory Tests: TROPONIN I, CONVENTIONAL SENSITIVITY TROPONIN I Date Value Ref Range Status 05/28/2024 0.037 (H) <0.034 ng/mL Final 05/28/2024 0.051 (H) <0.034 ng/mL Final 04/28/2024 0.032 <0.034 ng/mL Final 04/28/2024 0.025 <0.034 ng/mL Final 04/28/2024 0.020 <0.034 ng/mL Final TROPONIN I, HIGH SENSITIVITY Troponin HS Serial Baseline Date Value Ref Range Status 08/09/2024 31 <=35 ng/L Final Comment: In individuals presenting with symptoms > 2h, a baseline troponin <= 5 ng/L suggests acute cardiac injury is unlikely and further serial testing is generally not indicated. 08/05/2024 22 <=35 ng/L Final Comment: In individuals presenting with symptoms > 2h, a baseline troponin <= 5 ng/L suggests acute cardiac injury is unlikely and further serial testing is generally not indicated. 07/23/2024 33 <=35 ng/L Final 07/11/2024 218 (HH) <=35 ng/L Final 07/03/2024 39 (H) <=35 ng/L Final 2h Troponin HS (Serial 2nd Troponin) Date Value Ref Range Status 08/11/2024 22 <=35 ng/L Final Comment: 2h troponin (2nd troponin) samples collected between 1h 40 min and 2h and 20 min of the baseline collection time can be utilized to interpret delta troponins as per [employer]ma algorithms. Samples collected outside this timeframe need to be interpreted clinically. 08/05/2024 19 <=35 ng/L Final Comment: 2h troponin (2nd troponin) samples collected between 1h 40 min and 2h and 20 min of the baseline collection time can be utilized to interpret delta troponins as per Summa algorithms. Samples collected outside this timeframe need to be interpreted clinically. Rising or falling troponin delta between 2 - 15 ng/L as compared to baseline value requires a 3rd serial troponin 07/23/2024 30 <=35 ng/L Final 07/11/2024 221 (HH) <=35 ng/L Final 07/03/2024 33 <=35 ng/L Final Absolute Delta (2nd - Baseline Troponin) Date Value Ref Range Status 07/11/2024 3 <=2 ng/L Final Comment: A troponin delta greater than or equal to 15 ng/L is significant for acute cardiac injury. Values less than 15 but greater than 2 are an intermediate change requiring a 3rd serial troponin to be drawn. Values less than or equal to 2 indicate acute cardiac injury is not likely, see external algorithmsfor further clinical guidance. 07/03/2024 -6 <=2 ng/L Final Comment: This specimen was collected more than 20 minutes away from the 2 hour target. Use of this delta with the 2 hour troponin algorithm is not recommended, individualized clinical assessment is needed. A troponin delta greater than or equal to 15 ng/L is significant for acute cardiac injury. Values less than 15 but greater than 2 are an intermediate change requiring a 3rd serial troponin to be drawn. Values less than or equal to 2 indicate acute cardiac injury is not likely, see external algorithmsfor further clinical guidance. 06/13/2024 3 <=2 ng/L Final Comment: This specimen was collected more than 20 minutes away from the 2 hour target. Use of this delta with the 2 hour troponin algorithm is not recommended, individualized clinical assessment is needed. A troponin delta greater than or equal to 15 ng/L is significant for acute cardiac injury. Values less than 15 but greater than 2 are an intermediate change requiring a 3rd serial troponin to be drawn. Values less than or equal to 2 indicate acute cardiac injury is not likely, see external algorithmsfor further clinical guidance. 4h Troponin HS (Serial 3rd Troponin) Date Value Ref Range Status 07/12/2024 218 (HH) <=35 ng/L Final 06/13/2024 49 (H) <=35 ng/L Final Absolute Delta (3rd - 2nd Troponin) Date Value Ref Range Status 07/12/2024 -3 <=2 ng/L Final Comment: A troponin delta greater than or equal to 15 ng/L is suggestive of acute cardiac injury. Values less than 15, see clinical guidance for ED and Inpatient algorithms. 06/13/2024 -4 <=2 ng/L Final Comment: This specimen was collected more than 20 minutes away from the 2 hour target. Use of this delta with the 2 hour troponin algorithm is not recommended, individualized clinical assessment is needed. A troponin delta greater than or equal to 15 ng/L is suggestive of acute cardiac injury. Values less than 15, see clinical guidance for ED and Inpatient algorithms. Recent Labs 08/09/24215408/11/2421608/12/24 0134 NA 139 130* 136 K 3.8 4.0 4.3 CL 104 102 106 CO2 27 18* 19* BUN 35* 39* 42* CREATININE 1.94* 1.80* 2.23* Recent Labs 08/09/24215408/11/247 08/12/24 0134 WBC 8.8 8.2 8.0 HGB 14.2 15.0 13.9 14.0 HCT 42.8 42.0 42.2 MCV 101.7* 100.0* 101.0* PLT 245 243 263 Recent Labs 08/09/242154 BNP 16,371* No results for input(s): TRIG, HDL, LDLCALC, CHOL in the last 72 hours. No results found for: LDLCHOLESTER Lab Results Component Value Date TSH 3.18 07/23/2024 EF BP Date Value Ref Range Status 08/11/2024 18 (A) 55 - 100 % Final 08/09/24 TRANSTHORACIC ECHOCARDIOGRAM (TTE) COMPLETE (CONTRAST/BUBBLE/3D PRN) 08/11/2024 12:41 PM (Final) Interpretation Summary Left Ventricle: Left ventricle is severely dilated. Normal wall thickness. Severely reduced left ventricular systolic function. EF by 2D Simpsons Biplane is 18%. Global longitudinal strain is reducedwith a value of -4.1%. Global hypokinesis present. Right Ventricle: Not well visualized. Right ventricle is dilated. Low normal systolic function. Aortic Valve: Mild (1+) regurgitation. Mitral Valve: Moderate (2+) regurgitation. Tricuspid Valve: Moderately severe (3+) regurgitation. Left Atrium: Left atrium is severely dilated. Right Atrium: Right atrium is moderately dilated. Pericardium: Trivial pericardial effusion present. IVC/SVC: IVC diameter is dilated and decreases less than 50% during inspiration; therefore the estimated right atrial pressure is elevated (~15 mmHg). Signed by: Ana Singletary on 08/11/2024 12:41 PM Other reports reviewed: Cardiac Tests: EF BP Date Value Ref Range Status 08/11/2024 18 (A) 55 - 100 % Final Aracelis La MD Date Of Service 08/12/2024 I, Dr. Villalobos, saw and evaluated the patient. I personally obtained the reardon and critical portions of the history and physical exam. I reviewed the chart, the fellow's documentation, and discussed the patient with the fellow. I agree with the fellow's medical decision making and have edited the note to reflect my clinical findings and my assessment and plan. * Selena Carlisle PA-C - 08/12/2024 7:34 AM EST [facility] Nephrology Progress Note Subjective/ 44 y.o. year old male who we are seeing in consultation for CKD stage 3b. Interval History Laying in bed, not feeling well C/o abdominal discomfort and nausea Continues to endorse CARRERA Remains on RA UOP suboptimal ROS Otherwise negative No interval changes to [facility]. All interval notes/labs/imaging reviewed. Objective/ Vitals: 08/11/24 1615 08/11/24200308/11/24 2256 08/12/24 0244 BP: 101/80 106/75 108/77 107/81 BP Location: Left arm Left arm Left arm Left arm Patient Position: Lying Lying Lying Lying Pulse: 111 107 54 99 Resp: 18 16 16 16 Temp: 36.3 C (97.3 F) 36.8 C (98.3 F) 36.3 C (97.3 F) 36.1 C (97 F) TempSrc: Temporal Temporal Temporal Temporal SpO2: 100% 98% 95% 98% Weight: 79.6 kg (175 lb 6.4 oz) Height: 24HR INTAKE/OUTPUT: Intake/Output Summary (Last 24 hours) at 08/12/2024 0734 Last data filed at 08/11/2024 2200 Gross per 24 hour Intake 595 ml Output 550 ml Net 45 ml Physical Exam Constitutional: Appearance: Normal appearance. HENT: Head: Normocephalic and atraumatic. Mouth/Throat: Mouth: Mucous membranes are moist. Eyes: General: No scleral icterus. Cardiovascular: Rate and Rhythm: Normal rate and regular rhythm. Pulmonary: Effort: Pulmonary effort is normal. Breath sounds: Normal breath sounds. Comments: Breathing comfortably on RA CTAb anteriorly Abdominal: General: Bowel sounds are normal. There is distension. Tenderness: There is abdominal tenderness. Musculoskeletal: Cervical back: Neck supple. Right lower leg: Edema (trace) present. Left lower leg: Edema (trace) present. Skin: General: Skin is warm and dry. Neurological: Mental Status: He is alert and oriented to person, place, and time. Psychiatric: Mood and Affect: Mood normal. Thought Content: Thought content normal. Scheduled Meds:apixaban, 5 mg, Oral, BID [Held by provider] bumetanide, 1 mg, Oral, BID hydrALAZINE, 25 mg, Oral, Once hydrALAZINE, 25 mg, Oral, TID isosorbide dinitrate, 10 mg, Oral, Once isosorbide dinitrate, 20 mg, Oral, TID melatonin, 3 mg, Oral, Nightly sodium bicarbonate, 1,300 mg, Oral, BID Continuous Infusions: PRN Meds:.PRN medications: acetaminophen OR acetaminophen, ondansetron ODT OR ondansetron, polyethylene glycol (PEG) 3350 Data/ Recent Labs 08/09/24215408/11/2421608/12/24 0134 WBC 8.8 8.2 8.0 HGB 14.2 15.0 13.9 14.0 HCT 42.8 42.0 42.2 MCV 101.7* 100.0* 101.0* PLT 245 243 263 Recent Labs 08/09/24215408/11/2421608/12/24 013 NA 139 130* 136 K 3.8 4.0 4.3 CL 104 102 106 CO2 27 18* 19* GLUCOSE 139* 94 118* PHOS 4.1 -- -- MG 2.0 -- -- BUN 35* 39* 42* CREATININE 1.94* 1.80* 2.23* Assessment/ CKD stage 3b N18.32 Hyponatremia: hypervolemic? E87.1: resolved NAGMA E87.21 Chronic HFrEF I50.22 HTN in CKD I12.9 Hepatic steatosis Plan/ -Renal function worsening, up to 2.23, baseline ~ 1.7 -BUN rising as well, cont to monitor -Continue to trend creatinine and monitor urine output closely -Recommend daily standing weights -Patient appears near euvolemic on exam, trace LE edema however known hx of bilateral lower extremity DVTs, remains on Eliquis for the same -Defer management of diuresis to cardiology: remains on po bumex 1 mg q 12 hours, noted patient's refusal for swan guided therapy -Serial trend NT pro BNPs -Monitor urine output closely, need strict I&Os -Coreg placed on hold per cardiology, agree -Metabolic acidosis noted, c/w po bicarb tablets -Hyponatremia resolved -Rest of management per primary team Plan d/w patient and primary team We will follow. Please do not hesitate to call with any questions or concerns. DAVID Bajwa, PA-C [facility] Office This note is not finalized until authorized by Attending physician. Cosigned by Saul Briones MD at 08/12/2024 3:33 PM EST Associated attestation - Saul Briones MD - 08/12/2024 3:33 PM EST Patient was seen and examined by me. Notes reviewed and plan discussed with the PA. Agree with above note except Any variance is noted below. Continues to have lower extremity edema (recent DVTs). Noted chest x-ray. Clear to auscultation anteriorly. Could not examine JVD properly as the patient complains of abdominal pain on sitting up. Does have distended neck veins however. Noted results of echo. Had suboptimal response to IV diuretics with suboptimal urine output and worsening renal function. Continue to trend proBNP on serial basis. Discussed with the patient regarding possibility of right heart cath. Patient declined stating he does not want any needles put in his neck. Noted recommendations from cardiology. Agree with the same. Prognosis remains guarded given complex pathophysiology and patient not being cooperative to recommended course of action. Saul Briones MD [facility] [phone] * Duc Nuñez OT - 08/11/2024 2:58 PM EST Images from the original note were not included. OCCUPATIONAL THERAPY [facility] Name/MRN: Carlo Medina ([id number]) Date: 08/11/2024 OT eval and treatment received. Pt stating he does not need therapy and is requesting for us to discharge him, He states he has no concerns with ADL's or functional mobility. Will sign off. Please re-consult changes or difficulties occur. Duc Nuñez OT * Melissa Cortes - 08/11/2024 1:25 PM EST .Nutrition rescreen completed. Chart reviewed. Patient to be monitored and followed by the diet industrial engineering technician. Melissa Cortes DT * Lilia Brice, PT - 08/11/2024 1:13 PM EST Images from the original note were not included. PHYSICAL THERAPY [facility] Name/MRN: Carlo Medina ([id number]) Date: 08/11/2024 PT orders received. Chart reviewed. Spoke with patient. Patient states he is mobilizing at baseline/independent level and does not need or want PT at this time. Will sign off. Lilia Brice PT * Edgar Celaya MD - 08/11/2024 10:14 AM EST Hospitalist Progress Note 08/11/2024 Subjective: Admit Date: 08/09/2024 PCP: No primary care provider on file. Room#: [facility] A BRIEF HOSPITAL COURSE: Carlo Medina is a 44 y.o. male with history of HTN, HLD, CAD, HFrEF, CKD 3, PE, noncompliance whopresented to ED on 08/09/24 for chest pain, SOB, abdominal pain, and lightheadedness. In ED, initiallabs significant for BUN 35, Cr 1.94, ALP 194, AST/ALT 52/95, WBC 8.8 wnl, Hb 14.2, HS troponin 31,BNP 16,371. EKG showed sinus tachycardia. CXR showed enlarged cardiac silhouette similar to previous exam. Given IV morphine and zofran in ED. Admitted for further evaluation and management. Renal USshowed findings compatible with medical renal disease similar to comparison, no significant hydronephrosis, and small amount of perihepatic fluid. Cardiology consulted. Nephrology consulted. Interval History: No overnight issues. Patient laying flat in bed, Aox3, and on room air. States that he is doing okay. Currently denies fever, chills, chest pain, SOB. States that leg swelling improved. Reports some abdominal discomfort. Case and plan discussed with patient and TCC. Questions answered. Adult diet Regular; No Added Salt (3-4 gm) 24HR INTAKE/OUTPUT: Intake/Output Summary (Last 24 hours) at 08/11/2024 1014 Last data filed at 08/11/2024 0818 Gross per 24 hour Intake 955 ml Output 400 ml Net 555 ml Past Medical History: Past Medical History: Diagnosis Date Acute HFrEF (heart failure with reduced ejection fraction) ([facility]) 06/13/2024 Acute kidney injury superimposed on CKD ([facility]) ([facility]) 07/03/2024 At risk for obstructive sleep apnea 05/31/2024 o/p sleep study recommended during admission CHF (congestive heart failure) ([facility]) CKD (chronic kidney disease) H/O noncompliance with medical treatment, presenting hazards to health 06/19/2024 HFrEF (heart failure with reduced ejection fraction) ([facility]) 04/28/2024 History of left bundle branch block (LBBB) 06/19/2024 Hypercholesteremia Hypertension Left against medical advice 08/04/2024 Noncompliance 06/19/2024 NSTEMI (non-ST elevated myocardial infarction) ([facility]) 07/11/2024 Potential for deficient knowledge of congestive heart failure 08/05/2024 Pulmonary embolism ([facility]) Pulmonary vascular congestion 04/28/2024 Sinus tachycardia 06/19/2024 LABS: CBC: Recent Labs 08/09/24215408/11/24216 WBC 8.8 8.2 RBC 4.21* 4.20* HGB 14.2 15.0 13.9 HCT 42.8 42.0 MCV 101.7* 100.0* RDW 13.2 13.0 PLT 245 243 BMP: Recent Labs 08/09/24215408/11/24216 NA 139 130* K 3.8 4.0 CL 104 102 CO2 27 18* BUN 35* 39* CREATININE 1.94* 1.80* GLUCOSE 139* 94 CALCIUM 8.8 8.4 ANIONGAP 8 10 LIVER PROFILE: Recent Labs 08/09/24215408/11/24216 AST 52* 47* ALT 95* 86* BILITOT 2.2* 2.6* ALKPHOS 194* 201* PROT 6.4 5.6* PT/INR: Recent Labs 08/11/24216 PROTIME 15.7* INR 1.4* CARDIAC ENZYMES: No results for input(s): TROPONINI in the last 72 hours. Procalcitonin: No results found for: PROCAL COVID-19 PCR: No results for input(s): COVID19 in the last 72 hours. Objective: Vitals: BP 128/88 (BP Location: Left arm, Patient Position: Lying) Pulse 97 Temp 36.1 C (96.9 F) (Temporal) Resp 18 Ht 6' 1 (1.854 m) Wt 173 lb 8 oz (78.7 kg) SpO2 98% BMI 22.89 kg/m Pulse Ox: SpO2 Av.6 % Min: 91 % Max: 100 % Supplemental O2: O2 Flow Rate (L/min): 2 L/min Physical Exam Constitutional: General: He is not in acute distress. Appearance: He is not toxic-appearing. HENT: Head: Normocephalic. Right Ear: External ear normal. Left Ear: External ear normal. Eyes: Extraocular Movements: Extraocular movements intact. Cardiovascular: Rate and Rhythm: Normal rate and regular rhythm. Pulmonary: Effort: Pulmonary effort is normal. No respiratory distress. Abdominal: General: Bowel sounds are normal. Palpations: Abdomen is soft. Tenderness: There is abdominal tenderness (discomfort with palpation). Musculoskeletal: General: Normal range of motion. Right lower leg: Edema (trace) present. Left lower leg: Edema (trace) present. Skin: General: Skin is warm and dry. Neurological: Mental Status: He is alert and oriented to person, place, and time. Medications: Scheduled PRN apixaban, 5 mg, Oral, BID bumetanide, 1 mg, Oral, BID carvedilol, 25 mg, Oral, BID WC melatonin, 3 mg, Oral, Nightly sodium bicarbonate, 1,300 mg, Oral, BID PRN medications: acetaminophen OR acetaminophen, ondansetron ODT OR ondansetron, polyethylene glycol (PEG) 3350 Continuous Assessment Acute, acute on chronic, unstable/uncontrolled chronic problems/diagnoses: # Chest pain, improved # Hx of biventricular dysfunction, acute on chronic HFrEF - TTE (06/15/24): LVEF 20%, severe globalhypokinesis, dilated RV with moderately reduced systolic fxn, 1+ AR, 2+ MR, moderately elevated RVSP. BNP 16,371 on admission. CXR showed enlarged cardiac silhouette similar to previous exam. TTE (08/11/24): LVEF 18%, 1+ AR, 2+ MR, 3+ TR, severely dilated LA, moderately dilated RA # Abdominal pain # Hyponatremia # Transaminitis Stable chronic problems affecting care, new non-acute diagnoses: # HTN # HLD # CAD # CKD 3 - Renal US (08/10/24) showed findings compatible with medical renal disease similar to comparison, no significant hydronephrosis, and small amount of perihepatic fluid. # Hx of PE - on Eliquis # Hx of noncompliance Plan As a result of the above findings & factors, the following mgmt was pursued: - Telemetry monitoring - Received x1 IV lasix 40 mg this AM. On PO Bumex 1 mg BID - Cardiology consulted. Held Coreg. Started hydralazine and isordil. Recs noted. - Nephrology consulted. Recs noted. - Strict I/O's, daily weight - Continue chronic medications as able - TCC following for dispo planning. Discussed with TCC today. - am labs, replace lytes prn - delirium precautions: increase activity, schedule melatonin at bedtime, and limit nighttime disturbances - DVT prophylaxis: encourage ambulation and already anticoagulated Advance Directive: Full Code Anticipated Discharge - Date - TBD - Location - TBD - Pending the following - clinical course, building performance consultant recs Extended Emergency Contact Information Primary Emergency Contact: Kaitlin Hicks Mobile Relation: Significant Other Secondary Emergency Contact: Indira Medina Mobile Relation: Sister Edgar eClaya MD Division of Hospitalist Medicine [facility] documented in this [facility]02-16-2025 Consult note* Sheela Adan RD - 08/15/2024 1:04 PM ESTAssociated Order(s): IP CONSULT TO DIETITIAN Reason for Visit: Consult (Roosevelt nutritional sub score is less than or equal to 2) Patient's Roosevelt nutritional sub score currently 3. - Recommend to continue current diet of NAIMA. Pt declines need for ONS at this time. Will continue to monitor per nutrition standards of care. Sheela Adan RD Contact #: *[phone] * Ofelia Villalobos MD - 08/11/2024 11:31 AM EST [facility] [place] [facility] Cardiology /Electrophysiology Consult Note Reason for Consult/Chief Complaint: Evaluation of HfrEF Referring provider: Dr. Dasha Lyn Established radar engineer: History of Present Illness: Carlo Medina is a 44 y.o. male with a PMHx of HFrEF, CKD, HTN, HLD, LBBB, NSTEMI and pulmonary vascular congestion who got admitted from [facility] ED for further evaluation and management of chest pain,ADHF and SCHUYLER on CKD. In the ED, patient was afebrile, tachycardic between 110-120's, normal respirations and satting well on 2L NC. CMP showed Scr at 1.94, CBC unremarkable, [place] [address].EKG showed sinus tachycardia with left atrial enlargement. Chest x-ray showed enlarged cardiac silhouette similar to previous exam. He was given morphine 4mg x2 and Zofran 4mg x2. On assessment, patient said he has slept well last night and is feeling okay. He says the swelling in his legs have gotten better but his lower abdomen is paper cone machine tender. He had an episode of vomiting last night but says he feels better. Patient denies nausea, chest pain, lightheadedness and weakness. Assessment/Plan HF NYHA Class [] I [x] II [] III [] IV []Unable to assess HFrEF Evaluation -Patient is hypervolemic, cool to touch. We discussed the need for swan guided therapy if he does not improve with po meds - Bumex 1 mg BID IV - Start hydral/isordil 25/10 right now, increase the next dose to 50/20 TID -Hold coreg - Strict I/O's - Daily Weights - Replete electrolytes as needed Medications: apixaban, 5 mg, Oral, BID bumetanide, 1 mg, Oral, BID carvedilol, 25 mg, Oral, BID WC melatonin, 3 mg, Oral, Nightly sodium bicarbonate, 1,300 mg, Oral, BID Infusion Medications: Physical Examination: Vitals: 08/11/24 0329 08/11/24 0818 08/11/24 1042 08/11/24 1101 BP: 106/80 128/88 99/70 BP Location: Left arm Left arm Left arm Patient Position: Lying Lying Lying Pulse: 97 98 Resp: 16 18 18 Temp: 36.8 C (98.3 F) 36.1 C (96.9 F) 36.1 C (97 F) TempSrc: Temporal Temporal Temporal SpO2: 97% 98% 99% Weight: 173 lb (78.5 kg) Height: 6' 1 (1.854 m) Intake/Output Summary (Last 24 hours) at 08/11/2024 1132 Last data filed at 08/11/2024 0818 Gross per 24 hour Intake 955 ml Output 400 ml Net 555 ml Wt Readings from Last 3 Encounters: 08/11/24 173 lb (78.5 kg) 08/04/24 167 lb (75.8 kg) 07/30/24 163 lb 3.2 oz (74 kg) Physical Exam Constitutional: No acute distress. well nourished. well hydrated Psychiatric: A&O x 3. Medical insight fair NMT: Oral mucosa is pink and moist Neck: No JVD. Respiratory: Lungs are clear bilaterally Cardiac exam: Rhythm: Rate and Rhythm regular ; Normal S1 and S2 Murmur: None heard Other: No rub; No gallop Vasc: Peripheral pulses present Abdomen: non-tender, slightly distended Extremities: dependent LE edema Skin: Warm to touch and well perfused Laboratory Tests: TROPONIN I, CONVENTIONAL SENSITIVITY TROPONIN I Date Value Ref Range Status 05/28/2024 0.037 (H) <0.034 ng/mL Final 05/28/2024 0.051 (H) <0.034 ng/mL Final 04/28/2024 0.032 <0.034 ng/mL Final 04/28/2024 0.025 <0.034 ng/mL Final 04/28/2024 0.020 <0.034 ng/mL Final TROPONIN I, HIGH SENSITIVITY Troponin HS Serial Baseline Date Value Ref Range Status 08/09/2024 31 <=35 ng/L Final Comment: In individuals presenting with symptoms > 2h, a baseline troponin <= 5 ng/L suggests acute cardiac injury is unlikely and further serial testing is generally not indicated. 08/05/2024 22 <=35 ng/L Final Comment: In individuals presenting with symptoms > 2h, a baseline troponin <= 5 ng/L suggests acute cardiac injury is unlikely and further serial testing is generally not indicated. 07/23/2024 33 <=35 ng/L Final 07/11/2024 218 (HH) <=35 ng/L Final 07/03/2024 39 (H) <=35 ng/L Final 2h Troponin HS (Serial 2nd Troponin) Date Value Ref Range Status 08/11/2024 22 <=35 ng/L Final Comment: 2h troponin (2nd troponin) samples collected between 1h 40 min and 2h and 20 min of the baseline collection time can be utilized to interpret delta troponins as per [employer] algorithms. Samples collected outside this timeframe need to be interpreted clinically. 08/05/2024 19 <=35 ng/L Final Comment: 2h troponin (2nd troponin) samples collected between 1h 40 min and 2h and 20 min of the baseline collection time can be utilized to interpret delta troponins as per [employer]ma algorithms. Samples collected outside this timeframe need to be interpreted clinically. Rising or falling troponin delta between 2 - 15 ng/L as compared to baseline value requires a 3rd serial troponin 07/23/2024 30 <=35 ng/L Final 07/11/2024 221 (HH) <=35 ng/L Final 07/03/2024 33 <=35 ng/L Final Absolute Delta (2nd - Baseline Troponin) Date Value Ref Range Status 07/11/2024 3 <=2 ng/L Final Comment: A troponin delta greater than or equal to 15 ng/L is significant for acute cardiac injury. Values less than 15 but greater than 2 are an intermediate change requiring a 3rd serial troponin to be drawn. Values less than or equal to 2 indicate acute cardiac injury is not likely, see external algorithmsfor further clinical guidance. 07/03/2024 -6 <=2 ng/L Final Comment: This specimen was collected more than 20 minutes away from the 2 hour target. Use of this delta with the 2 hour troponin algorithm is not recommended, individualized clinical assessment is needed. A troponin delta greater than or equal to 15 ng/L is significant for acute cardiac injury. Values less than 15 but greater than 2 are an intermediate change requiring a 3rd serial troponin to be drawn. Values less than or equal to 2 indicate acute cardiac injury is not likely, see external algorithmsfor further clinical guidance. 06/13/2024 3 <=2 ng/L Final Comment: This specimen was collected more than 20 minutes away from the 2 hour target. Use of this delta with the 2 hour troponin algorithm is not recommended, individualized clinical assessment is needed. A troponin delta greater than or equal to 15 ng/L is significant for acute cardiac injury. Values less than 15 but greater than 2 are an intermediate change requiring a 3rd serial troponin to be drawn. Values less than or equal to 2 indicate acute cardiac injury is not likely, see external algorithmsfor further clinical guidance. 4h Troponin HS (Serial 3rd Troponin) Date Value Ref Range Status 07/12/2024 218 (HH) <=35 ng/L Final 06/13/2024 49 (H) <=35 ng/L Final Absolute Delta (3rd - 2nd Troponin) Date Value Ref Range Status 07/12/2024 -3 <=2 ng/L Final Comment: A troponin delta greater than or equal to 15 ng/L is suggestive of acute cardiac injury. Values less than 15, see clinical guidance for ED and Inpatient algorithms. 06/13/2024 -4 <=2 ng/L Final Comment: This specimen was collected more than 20 minutes away from the 2 hour target. Use of this delta with the 2 hour troponin algorithm is not recommended, individualized clinical assessment is needed. A troponin delta greater than or equal to 15 ng/L is suggestive of acute cardiac injury. Values less than 15, see clinical guidance for ED and Inpatient algorithms. Recent Labs 08/09/24215408/11/24216 NA 139 130* K 3.8 4.0 CL 104 102 CO2 27 18* BUN 35* 39* CREATININE 1.94* 1.80* EGFR 42.4* 46.4* Recent Labs 08/09/24215408/11/24216 WBC 8.8 8.2 HGB 14.2 15.0 13.9 HCT 42.8 42.0 MCV 101.7* 100.0* PLT 245 243 Lab Results Component Value Date HGBA1C 5.0 03/01/2024 Lab Results Component Value Date TSH 3.18 07/23/2024 Lab Results Component Value Date CHOL 130 06/14/2024 CHOL 172 02/29/2024 Lab Results Component Value Date HDL 16 (L) 06/14/2024 HDL 28 (L) 02/29/2024 Lab Results Component Value Date LDLCALC 100 (H) 06/14/2024 LDLCALC 126 (H) 02/29/2024 Lab Results Component Value Date TRIG 68 06/14/2024 TRIG 88 02/29/2024 No results found for: CHOLHDL No results found for: LDLCHOLESTER Recent Labs 08/09/242154 BNP 16,371* Recent Labs 08/11/24 0217 INR 1.4* Results from last 7 days Lab Units 08/11/24 0217 08/09/245 08/05/24 0306 AST U/L 47* 52* 50* ALT U/L 86* 95* 101* No results found for: IRON, TIBC, FERRITIN Radiology: CXR: personally reviewed: Cardiac Tests Personally Reviewed: Last EKG 08/09/24 ECG 12-LEAD (Preliminary) This result has not been signed. Information might be incomplete. Impression Sinus tachycardia Left atrial enlargement Anterior infarct, old Telemetry findings: NSR Reports reviewed: Last Echo 06/13/24 TRANSTHORACIC ECHOCARDIOGRAM (TTE) COMPLETE (CONTRAST/BUBBLE/3D PRN) 06/15/2024 1:59 PM (Final) Interpretation Summary Left Ventricle: Left ventricle is dilated. Mildly increased wall thickness. Severely reduced left ventricular systolic function. EF by 2D Simpsons Biplane is 20%. Global longitudinal strain is reduced with a value of -5.0%. Severe global hypokinesis present. Right Ventricle: Right ventricle is dilated. Moderately reduced systolic function. Aortic Valve: Mild (1+) regurgitation. Mitral Valve: Moderate (2+) regurgitation with an eccentrically directed jet and and may underestimate severity. Tricuspid Valve: Moderately elevated RVSP. RVSP is 46 mmHg. Pericardium: Small (<1 cm) pericardial effusion present. Findings do not support cardiac tamponade. IVC/Hepatic Veins: IVC diameter is dilated and decreases less than 50% during inspiration; therefore the estimated right atrial pressure is elevated (~15 mmHg). Slow blood flow, echogenic. Signed by: Ofelia Villalobos on 06/15/2024 1:59 PM Last Cath 06/13/24 CARDIAC PROCEDURE 06/17/2024 11:14 AM (Final) Conclusion No significant epicardial coronary artery disease Milldy elevated right heart pressures: RA 7 mmHg, mean PA pressure 27 mmHg Elevated PCWP ~ 23mmHg, and LVEDP ~ 25 mmHg Decreased cardiac output/index. By Rodney, output: 3/0 L/min index 1.5: By thermodilution, output: 3.1 L/min index: SVR ~ 2200 Signed by: Akilah Diaz on 06/17/2024 11:14 AM Last Stress Test No results found for this or any previous visit. Last EP study No results found for this or any previous visit. EF BP Date Value Ref Range Status 08/11/2024 18 (A) 55 - 100 % Merlin Bingham DATE of SERVICE: 08/11/2024 I, Dr. Villalobos, saw and evaluated the patient on 08/11/24. I personally obtained the reardon and critical portions of the history and physical exam. I reviewed the chart, the student's documentation, and discussed the patient with the student. I agree with the student's medical decision making and have edited the note to reflect my clinical findings and my assessment and plan. * Selena Carlisle PA-C - 08/11/2024 11:16 AM ESTAssociated Order(s): IP CONSULT TO NEPHROLOGY [facility] Nephrology Consultation Note Reason for consultation: SCHUYLER on CKD Chief Complaint: Chest Pain,. ADHF & SCHUYLER on CKD History of Presenting Illness Patient is a 44 y.o. male with PMHx noted below who presented to [facility] ED on 08/09/2024 with chief complaint listed above. In ED vitals remarkable for tachycardia (HR 110-120s). Labs significant for Scr1.94, BNP 16,371, CBC unremarkable. Patient admitted for further evaluation and management. Received IV lasix 40 mg x 1 this morning. Nephrology is consulted for evaluation and management of SCHYULER on CKD. Patient known to our group from previous admissions. Scr is currently 1.80. As high as 1.94 on admission. Patient's baseline creatinine appears to be 1.7. Patient has a hx of chronic kidney disease stage 3b, etiology 2/2 HTN. Denies ever being seen by patient transport orderly outpatient. Home medications notable for aldactone 25 mg/day, NaHCo3 tablets 1,300 mg BID, potassium [id number] mEq/day, losartan 50 mg/day, bumex 1 mg BID, coreg 25 mg BID and Eliquis 5 mg BID. Patient reports not using NSAIDS. No recent exposure to IV contrast. Hemodynamic fluctuations noted, BP as high as 141/109 on admission and as low as 94/83. BP most recently 99/70. Urinalysis completely bland. On exam patient endorses SOB and CARRERA, nausea and abdominal TTP. Denies any further chest pain, fever/chills, or diarrhea. Denies urinary symptoms. Past Medical/Surgical History Past Medical History: Diagnosis Date Acute HFrEF (heart failure with reduced ejection fraction) ([facility]) 06/13/2024 Acute kidney injury superimposed on CKD ([facility]) ([facility]) 07/03/2024 At risk for obstructive sleep apnea 05/31/2024 o/p sleep study recommended during admission CHF (congestive heart failure) ([facility]) CKD (chronic kidney disease) H/O noncompliance with medical treatment, presenting hazards to health 06/19/2024 HFrEF (heart failure with reduced ejection fraction) ([facility]) 04/28/2024 History of left bundle branch block (LBBB) 06/19/2024 Hypercholesteremia Hypertension Left against medical advice 08/04/2024 Noncompliance 06/19/2024 NSTEMI (non-ST elevated myocardial infarction) ([facility]) 07/11/2024 Potential for deficient knowledge of congestive heart failure 08/05/2024 Pulmonary embolism ([facility]) Pulmonary vascular congestion 04/28/2024 Sinus tachycardia 06/19/2024 Past Surgical History: Procedure Laterality Date CARDIAC CATHETERIZATION N/A 06/17/2024 Performed by Akilah Diaz MD at [facility] 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 Review of Systems All 12 systems reviewed and are negative except for what is mentioned in the HPI. Allergies Torsemide and Entresto [sacubitril-valsartan] Family History Family History Problem Relation Name Age of Onset Heart failure Father unsure of hx Heart disease Father unsure of hx Heart disease Brother unsure of hx Social History Social History Socioeconomic History Marital status: Single Tobacco Use Smoking status: Never Passive exposure: Never Smokeless tobacco: Never Vaping Use Vaping status: Never Used Substance and Sexual Activity Alcohol use: Never Drug use: Never Comment: caffeine- none Sexual activity: Yes Partners: Female Social Drivers of Health Financial Resource Strain: Low Risk (07/12/2024) Overall Financial Resource Strain (CARDIA) Difficulty of Paying Living Expenses: Not very hard Food Insecurity: No Food Insecurity (08/10/2024) Hunger Vital Sign Worried About Running Out of Food in the Last Year: Never true Ran Out of Food in the Last Year: Never true Transportation Needs: No Transportation Needs (08/10/2024) PRAPARE - Transportation Lack of Transportation (Medical): No Lack of Transportation (Non-Medical): No Physical Activity: Inactive (07/12/2024) Exercise Vital Sign Days of Exercise per Week: 0 days Minutes of Exercise per Session: 0 min Stress: Stress Concern Present (07/12/2024) [place] [employer] - Occupational Stress Questionnaire Feeling of Stress : To some extent Social Connections: Moderately Integrated (07/12/2024) Social Connection and Isolation Panel [NHANES] Frequency of Communication with Friends and Family: Twice a week Frequency of Social Gatherings with Friends and Family: Once a week Attends Holiness Services: 1 to 4 times per year Active Member of Clubs or Organizations: No Attends Club or Organization Meetings: Never Marital Status: Living with partner Intimate Partner Violence: Not At Risk (08/10/2024) Humiliation, Afraid, Rape, and Kick questionnaire Fear of Current or Ex-Partner: No Emotionally Abused: No Physically Abused: No Sexually Abused: No Housing Stability: Low Risk (08/10/2024) Housing Stability Vital Sign Unable to Pay for Housing in the Last Year: No Number of Times Moved in the Last Year: 0 Homeless in the Last Year: No Medications Medications Prior to Admission Medication Sig Dispense Refill Last Dose/Taking apixaban (Eliquis) 5 MG tablet Take 1 tablet (5 mg) by mouth 2 times daily. 60 tablet 3 08/09/2024 bumetanide (Bumex) 1 MG tablet Take 1 tablet (1 mg) by mouth 2 times daily. 60 tablet 11 08/09/2024 carvedilol (Coreg) 25 MG tablet Take 1 tablet (25 mg) by mouth 2 times daily (with meals). 60 tablet 11 08/09/2024 cholecalciferol (Vitamin D-3) 50 MCG (2000 UT) tablet Take 2 tablets (4,000 Units) by mouth daily. 180 tablet 0 08/09/2024 losartan (Cozaar) 50 MG tablet Take 1 tablet (50 mg) by mouth daily. 30 tablet 11 08/09/2024 magnesium oxide (Mag-Ox) 400 (240 Mg) MG tablet Take 1 tablet (400 mg) by mouth daily. 30 tablet 1 08/09/2024 potassium chloride CR (Klor-Con M20) 20 MEQ ER tablet Take 2 tablets (40 mEq) by mouth daily. Do not crush or chew. 4 tablet 3 08/09/2024 sodium bicarbonate 650 MG tablet Take 2 tablets (1,300 mg) by mouth 2 times daily. 360 tablet 0 08/09/2024 spironolactone (Aldactone) 25 MG tablet Take 1 tablet (25 mg) by mouth daily. 30 tablet 11 08/09/2024 Current Medications: apixaban, 5 mg, Oral, BID bumetanide, 1 mg, Oral, BID carvedilol, 25 mg, Oral, BID WC melatonin, 3 mg, Oral, Nightly sodium bicarbonate, 1,300 mg, Oral, BID Continuous Infusions: PRN Meds:PRN medications: acetaminophen OR acetaminophen, ondansetron ODT OR ondansetron, polyethylene glycol (PEG) 3350 Physical Exam Vitals: 08/11/24 0329 08/11/24 0818 08/11/24 1042 08/11/24 1101 BP: 106/80 128/88 99/70 BP Location: Left arm Left arm Left arm Patient Position: Lying Lying Lying Pulse: 97 98 Resp: 16 18 Temp: 36.8 C (98.3 F) 36.1 C (96.9 F) 36.1 C (97 F) TempSrc: Temporal Temporal Temporal SpO2: 97% 98% 99% Weight: 78.5 kg (173 lb) Height: 1.854 m (6' 1) Input / Output: 24 HR: Intake/Output Summary (Last 24 hours) at 08/11/2024 1116 Last data filed at 08/11/2024 0818 Gross per 24 hour Intake 955 ml Output 400 ml Net 555 ml IV Intake: P.O. (mL): 355 mL Agustin: General: Comfortable appearing, cooperative to history and physical exam. Head: NCAT Eye: anicteric sclera, conjunctiva clear Mouth: mucus membrane semi-moist Neck: Supple Chest: B/L equal air entry, no crackles, no accessory muscles usage. CV: s1s2 heard RRR Abdomen: generalized TTP, distended, soft bowel sounds present, no palpable masses Extremities: trace peripheral edema, no cyanosis or clubbing Skin: Warm, no rash Neurological: Oriented times three, Speech clear coherent Psychiatric: normal insight and judgement, good recall Data Recent Labs 08/09/24215408/11/24216 WBC 8.8 8.2 HGB 14.2 15.0 13.9 HCT 42.8 42.0 MCV 101.7* 100.0* PLT 245 243 Recent Labs 08/09/24215408/11/24216 NA 139 130* K 3.8 4.0 CL 104 102 CO2 27 18* GLUCOSE 139* 94 PHOS 4.1 -- MG 2.0 -- BUN 35* 39* CREATININE 1.94* 1.80* Albumin: No components found for: LABALBU Calcium: Lab Results Component Value Date CALCIUM 8.4 08/11/2024 Ionized Calcium: No components found for: IONCA Magnesium: Lab Results Component Value Date MG 2.0 08/09/2024 Phosphorus: Lab Results Component Value Date PHOS 4.1 08/09/2024 Imaging: reviewed Renal US 08/10/2024: FINDINGS: Right kidney measures 9.4 x 5.9 x 5.2 cm. Renal cortical echotexture mildly increased. No intrarenal calculi, significant hydronephrosis or abnormal perinephric fluid collection. Left kidney measures 10.5 x 6.0 x 6.2 cm. Renal cortical echotexture mildly increased. No intrarenal calculi, significant hydronephrosis or abnormal perinephric fluid collection. Visualized urinary bladder nondistended limiting evaluation, but grossly grossly unremarkable. Small amount of perihepatic fluid incidentally noted. IMPRESSION: 1. Findings compatible with medical renal disease, similar to comparison. 2. No significant hydronephrosis. 3. Small amount of perihepatic fluid. No results found for: APPEARANCE, COLORU, LABSPEC, LABPH, URINE, GLUCOSEU, UROBILINOGEN, BILIRUBINUR, OCBU Assessment 44 y.o. male with CKD stage 3b N18.32 Hyponatremia: hypervolemic? E87.1 NAGMA E87.21 Chronic HFrEF I50.22 HTN in CKD I12.9 RECOMMENDATIONS: -Scr currently 1.8 not far from baseline 1.7, non-oliguric, BP soft -Ok to resume home medications from renal standpoint -Avoid hypotension and overt hemodynamic shifts -Renal US reviewed: negative for hydronephrosis -Maintain low sodium diet -Phosphorus and calcium both wnl, check PTH level -Sodium noted at 130, dropping from 139 on last labs, cont to monitor trend -Only mild volume overload on exam with trace peripheral edema, received 40 mg IV lasix this morning, monitor renal response with BMP in AM -Metabolic acidosis noted, c/w po bicarb tablets -Need strict Is & Os -Daily standing weights -Avoid nephrotoxins and IV contrast dye -Dose all meds per current eGFR -Cardiology consult pending, will appreciate input -Patient will benefit from close outpatient follow up with nephrology for tight control of risk factors for disease progression -Rest of management per primary team We will follow along closely. Thank you for asking us to participate in the management of your patient, please do not hesitate tocontact me for any concerns regarding my recommendations as outlined above. I can be easily reachedvia Secure Chat SIGNATURE: Selena Carlisle PA-C PATIENT NAME: Carlo Medina DATE: August 11, 2024 Office [facility] [phone] Note not finalized until authorized by Attending physician. Cosigned by Saul Briones MD at 08/11/2024 5:24 PM EST Associated attestation - Saul Briones MD - 08/11/2024 5:24 PM EST Patient was seen and examined by me. Notes reviewed and plan discussed with the PA. Agree with above note except Any variance is noted below. The patient was evaluated in the room. Laying down. Has not been evaluated by nephrology on outpatient basis. Renal function currently appears to be improving. The patient however is developing acidosis and hyponatremia. Also noted to have significantly elevated proBNP and mild transaminitis with hyperbilirubinemia. Agree with Lasix. Continue to trend proBNP, Daily standing weight, urine output, electrolytes and renal function on serial basis. Continue bicarb supplement. Avoid hypotension. Consider reducing the dose of carvedilol to 12.5 mg twice daily. Saul Briones MD [facility] [phone] documented in this [facility]2025 Telephone encounter Note* Telephone Encounter - Christopher Tai MD - 08/12/2024 3:23 PM EST Images from the original note were not included. PIC Triage Note 08/12/2024 [facility] patient being transferred from: [facility]: Dr Godinez Reason for admission: Heart Failure Reason For Transfer: Out of network, out of insurance History of biventricular HF, EF 20% last year. 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 Other workup pending. Unknown substance/drug history, tox screens negative this admission. Presented 08/09 for chest pain/SOB to [facility]. Admission for acute on chronic CF Repeat echo 18% Team wanted to do swan therapy, but patient declined Has also been declining IV meds Currently on Oral bumix W/ hydral and imdur Says he'll consider IV management in future if doesn't get better On physical exam: HDS, Laying flat, on room air, no orthopnea Plus 1 edema Dry weight unclear, did not have today's weight either Labs Today: [place]NP [address]886 [place] [address] Baseline around 17-20K Cr 2.23 Baseline 1.68 Nephrology and Cardiology following they both feel that he remains hypervolemic. Has refused PT/OT eval, plans for likely discharge home. Given his heart failure and likely hypervolemic status agree that would benefit from continued diuresis. Accepted to medicine. Informed their team that if patient is agreeable to swan guided diuresisthat he would need to instead be accepted by our cardiology service however for the time he is appropriate for the general medicine service pending bed availability. Christopher Tai MD Internal Medicine-Pediatrics PGY-4 Pager: [phone] [id number] Miscellaneous Notes* Telephone Encounter - Christopher Tai MD - 08/12/2024 3:23 PM EST Images from the original note were not included. PIC Triage Note 08/12/2024 [facility] patient being transferred from: [facility]: Dr Godinez Reason for admission: Heart Failure Reason For Transfer: Out of network, out of insurance History of biventricular HF, EF 20% last year. 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 Other workup pending. Unknown substance/drug history, tox screens negative this admission. Presented 08/09 for chest pain/SOB to [facility]. Admission for acute on chronic CF Repeat echo 18% Team wanted to do swan therapy, but patient declined Has also been declining IV meds Currently on Oral bumix W/ hydral and imdur Says he'll consider IV management in future if doesn't get better On physical exam: HDS, Laying flat, on room air, no orthopnea Plus 1 edema Dry weight unclear, did not have today's weight either Labs Today: B[place] 49070 [place] , [place] [address] Baseline around 17-20K Cr 2.23 Baseline 1.68 Nephrology and Cardiology following they both feel that he remains hypervolemic. Has refused PT/OT eval, plans for likely discharge home. Given his heart failure and likely hypervolemic status agree that would benefit from continued diuresis. Accepted to medicine. Informed their team that if patient is agreeable to swan guided diuresisthat he would need to instead be accepted by our cardiology service however for the time he is appropriate for the general medicine service pending bed availability. Christopher Tai MD Internal Medicine-Pediatrics PGY-4 Pager: [phone] documented in this [id number] Hospital Discharge instructions* Discharge Instructions* Dia Gaitan RN - 08/11/2024 10:39 AM EST My Heart Failure Action Plan Use the below chart as a guide for daily symptom monitoring after you obtain your morning weight. My Bending Shed Worker: Dr[facility] [phone] My Diagnosis: Heart failure with reduced ejection fraction My Ejection Fraction: ~20% NORMAL 50-65% My Exercise Goal: as tolerated My Weight Goal: Standing weight day of hospital discharge Weigh yourself daily using the same scale. If you gain more than 3 pounds in 24 hours or 5 pounds in a week Call your Bending Shed Worker!! My Diet Goal: General diet recommendations for heart failure patients are less than 2,000mg sodium and less than 2 liters of fluid per day. This will help with symptoms of fluid retention, such as swelling and shortness of breath. See provider orders for additional/alternative recommendations. Emergency Room Visits: Our goal is to improve your quality of life and help you avoid a visit to the emergency room or hospital. If we work together, we can achieve this goal. But, if you feel you need to call 911 or go tothe emergency room, please do so. If you go to the emergency room, please bring your list of medicines and your daily weight chart with you. GREEN ZONE Doing well today Weight gained is no more than 3 pounds a day or 5 pounds a week. No swelling in feet, ankles, legs or stomach. No more swelling than usual. No more trouble breathing than usual. No change in my sleep. No other problems. Actions: I am doing fine. I will take my medicine, follow my diet, see my doctor, exercise, and watch for symptoms YELLOW ZONE Having a bad day or flare up Weight gained of more than 3 pounds in one day or 5 pounds in one week. New swelling in ankle, leg, knee, or thigh. Bloating in belly, pants feel tighter. Swelling in hands or face. Coughing or trouble breathing while walking or talking. Harder to breathe last night. Have trouble sleeping, wake up short of breath. Much more tired than usual. Not eating. Pain in my chest or bad leg cramps. Feel weak or dizzy. Signs and symptoms of Dehydration: dark and/or less urine, dry cracked mouth/skin, lethargic, lightheaded, dizzy, low blood pressure readings with high heart rate Actions: I need to take action and call my doctor or nurse today. RED ZONE NEED MEDICAL CARE NOW Weight gain of 5 pounds overnight. Chest pain or pressure that does not go away. Feel less alert. Wheezing or have trouble breathing when at rest. Cannot sleep lying down. Cannot take my water pill. Pass out or faint. ACTIONS I need to call my doctor or nurse now! Call 911 if I have chest pain or cannot breathe. Cardiac Rehab for Heart Failure with a Reduced Ejection Fraction (< 35%) Heart Failure with a reduced ejection fraction (HFrEF) means that your heart is weak and is not able to efficiently pump enough blood out to the body with each beat. Physical activity or even activities of daily living such as laundry, cooking and bathing may cause symptoms of shortness of breath and fatigue. As HFrEF progresses, these symptoms may cause an intolerance to activity or inability todo the things you love, ultimately reducing your quality of life. Cardiac Rehab is proven to help reduce readmissions, improve functional capacity and lower recurrence of problems with your heart. The Cardiac Rehab team at [facility] consists of highly skilled exercise physiologists, nurses, respiratory therapists and physicians. The team works together with you to identify and reach goals to help improve your quality of life. Over the years, many of our patients have returned to activities they assumed they would never do again! We can help restore your confidence and motivation to make lifestyle changes that can have a significant positive impact on your health. We can answer questions and concerns you may have about exercise, lifestyle, medications, diet, stress and anxiety which are common following a hospitalization. During sessions, we monitor ECG (heartrhythm) and vital signs with exercise and discuss progress with you and your physician. We have easily accessible facilities on both [facility] and [facility] with free street level parking. There is a mandatory 6 week wait period following a hospitalization to ensure you are stable enough to participate. Cardiac Rehab staff will contact you about 2 weeks prior to the identified start date to assess payment and schedule your first visit. If needed, [facility] Financial Assistanceis available! If you have other questions or concerns, be sure to ask your provider. We look forward to seeing you! Our locations: [facility] [phone] (Ground floor past [address]) [facility] [phone] [address] [id number] (Gr[address]) * Discharge Instr - ROBERT* Rima Reyse RN - 08/19/2024 1:49 PM EST Images from the original note were not included. Continuity of Care Form Patient Name: Carlo Medina : 1980 Admit date: 08/09/2024 Discharge date: Code Status Order: Full Code Advance Directives: N Admitting Physician: Nghia Webb MD PCP: No primary care provider on file. Discharging Nurse: Discharging Hospital Unit/Room#: [id number]/[id number] A Discharging Unit Phone Number: Emergency Contact: Extended Emergency Contact Information Primary Emergency Contact: Kaitlin Hicks Mobile Relation: Significant Other Secondary Emergency Contact: Indira Medina Mobile Relation: Sister Past Surgical History: Past Surgical History: Procedure Laterality Date CARDIAC CATHETERIZATION N/A 06/17/2024 Performed by Akilah Diaz MD at [facility] 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 Immunization History: There is no immunization history for the selected administration types on file for this patient. Active Problems: Medical Problems Problem List * (Principal) Acute kidney injury superimposed on CKD (HCC) (HCC) Shortness of breath Pulmonary vascular congestion HFrEF (heart failure with reduced ejection fraction) (HCC) Moderate malnutrition (CMS/HCC) (HCC) Essential hypertension Elevated liver enzymes CKD (chronic kidney disease) H/O noncompliance with medical treatment, presenting hazards to health History of left bundle branch block (LBBB) Overview Signed 06/19/2024 9:06 AM by Angel Luis Lassiter MD Intermittent Sinus tachycardia At risk for obstructive sleep apnea Acute kidney injury (HCC) Acute deep vein thrombosis (DVT) of lower extremity (HCC) SCHUYLER (acute kidney injury) (HCC) Left against medical advice Potential for deficient knowledge of congestive heart failure Leg swelling Isolation/Infection: No active isolations No active infections Nurse Assessment: Last Vital Signs: BP 107/75 (BP Location: Right arm, Patient Position: Sitting) Pulse 100 Temp 36.4 C (97.6 F) (Temporal) Resp 16 Ht 1.854 m (6' 1) Wt 69.8 kg (153 lb 12.8 oz) SpO2 100% BMI 20.29 kg/m Last documented pain score (0-10 scale): Last Weight: Wt Readings from Last 1 Encounters: 08/19/24 69.8 kg (153 lb 12.8 oz) Mental Status: {ROBERT Patient Mental Status:65000} IV Access: {ROBERT IV Access:93029} Nursing Mobility/ADLs: Walking {EMELY ADL:::Independent} Transfer {EMELY ADL:::Independent} Bathing {EMELY ADL:::Independent} Dressing {EMELY ADL:::Independent} Toileting {EMELY ADL:::Independent} Feeding {EMELY ADL:::Independent} Co Founder And Ceo {EMELY ADL:::Independent} Med Delivery {yes/no:85126} Wound Care Documentation and Therapy: Elimination: Continence: Bowel: {yes/no:04794} Bladder: {yes/no:40441} Urinary Catheter: {ROBERT Urinary Catheter:99160} Colostomy/Ileostomy/Ileal Conduit: {YES / NO:} Date of Last BM: Intake/Output Summary (Last 24 hours) at 08/19/2024 1349 Last data filed at 08/19/2024 0800 Gross per 24 hour Intake 650 ml Output 3350 ml Net -2700 ml I/O last 3 completed shifts: In: 1130 (16.2 mL/kg) [P.O.:1130] Out: 7450 (106.8 mL/kg) [Urine:7450 (3 mL/kg/hr)] Weight: 69.8 kg Safety Concerns: {ROBERT Safety Concerns:52517} Impairments/Disabilities: {ROBERT Impairments/Disabilities:72616} Nutrition Therapy: Current Nutrition Therapy: {ROBERT Diet List:49629} Routes of Feeding: {routes of feedin} Liquids: {liquid consistency:27562} Daily Fluid Restriction: {daily fluid restriction:82102} Last Modified Barium Swallow with Video (Video Swallowing Test): {done not done:35045} Treatments at the Time of Hospital Discharge: Respiratory Treatments: Oxygen Therapy: {Therapy; copd oxygen:84043} Ventilator: {ROBERT Ventilator:16595} Rehab Therapies: {GEN THERAPY DISCIPLINE SCAL:9736432} Weight Bearing Status/Restrictions: {POD WEIGHT BEARIN} Other Medical Equipment (for information only, NOT a DME order): {Assistive Devices DME:72602} Other Treatments: Patient's personal belongings (please select all that are sent with patient): {ROBERT Patient Belongings:67724} RN SIGNATURE: {E-signature:71253} CASE MANAGEMENT/SOCIAL WORK SECTION Inpatient Status Date: Discharging to Facility/ Agency Name: Address: Phone: Fax: Dialysis Facility (if applicable) Name: Address: Dialysis Schedule: Phone: Fax: [employer] Nurse signature: {E-signature:13759} PHYSICIAN SECTION Name: Carlo Medina Prognosis: {Rehab Prognosis:94574} Condition at Discharge: {Patient Condition:14755} Rehab Potential (if transferring to Rehab): {Rehab Prognosis:66893} Recommended Labs or Other Treatments After Discharge: The individual is being admitted to a nursing facility directly from an [facility] or a unit of a [facility] that is not operated by or licensed by [facility] under section 5119.14 or 5160-3-15.1 5 The individual requires the level of services provided by a nursing facility for the condition for which he or she was treated in the hospital and, Physician Certification: I certify the above information and transfer of Carlo Medina is necessary for the continuing treatment of the diagnosis listed and that he requires {ROBERT Level of Care:46100} for {greater less than:64002} 30 days. Update Admission H&P: {ROBERT Changes in H&P:37617} PHYSICIAN SIGNATURE: {E-signature:31082} documented in this [facility]02-11-2025 [facility] 08-10-2024 History and physical note* Dasha Lyn MD - 08/10/2024 8:53 PM EST Attending History and Physical Admit Date: 08/09/2024 PCP: No primary care provider on file. CHIEF COMPLAINT: Chest Pain,. ADHF & SCHUYLER on CKD History Obtained From: The patient & EHR HISTORY OF PRESENT ILLNESS: Carlo is a 44 y.o. male with with PMH below who got admitted from the [facility] ED to the hospital forfurther evaluation and management of Chest Pain, ADHF & SCHUYLER on CKD. Upon arrival to the ED, the pt was tachycardiac 110-120s, afebrile, satting well on 2L NC. The initial workup at the ED revealed: - sCr: 1.94 - CBC wnl - Pro-BNP: 58232 - Trop wnl - EKG showed sinus tachy - CXR showed enlarged cardiac silhouette similar to previous exam At the ED, the pt was given morphine 4mg x2 and Zofran 4mg x2. The decision was then made to admit the pt to the hospital for further evaluation and management ofChest Pain, ADHF, and SCHUYLER Upon interviewing, the pt was lying on the bed in NAD. Pt reports retrosternal chest pain nonradiating associated with shortness of breath and abdominal discomfort. Pt denies vomiting, headache, fever, chills, any changes in urinary habits. Past Medical History: Past Medical History: Diagnosis Date Acute HFrEF (heart failure with reduced ejection fraction) ([facility]) 06/13/2024 Acute kidney injury superimposed on CKD ([facility]) ([facility]) 07/03/2024 At risk for obstructive sleep apnea 05/31/2024 o/p sleep study recommended during admission CHF (congestive heart failure) ([facility]) CKD (chronic kidney disease) H/O noncompliance with medical treatment, presenting hazards to health 06/19/2024 HFrEF (heart failure with reduced ejection fraction) ([facility]) 04/28/2024 History of left bundle branch block (LBBB) 06/19/2024 Hypercholesteremia Hypertension Left against medical advice 08/04/2024 Noncompliance 06/19/2024 NSTEMI (non-ST elevated myocardial infarction) ([facility]) 07/11/2024 Potential for deficient knowledge of congestive heart failure 08/05/2024 Pulmonary embolism ([facility]) Pulmonary vascular congestion 04/28/2024 Sinus tachycardia 06/19/2024 Past Surgical History: Past Surgical History: Procedure Laterality Date CARDIAC CATHETERIZATION N/A 06/17/2024 Performed by Akilah Diaz MD at [facility] 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 Social History: Social History Socioeconomic History Marital status: Single Spouse name: Not on file Number of children: Not on file Years of education: Not on file Highest education level: Not on file Occupational History Not on file Tobacco Use Smoking status: Never Passive exposure: Never Smokeless tobacco: Never Vaping Use Vaping status: Never Used Substance and Sexual Activity Alcohol use: Never Drug use: Never Comment: caffeine- none Sexual activity: Yes Partners: Female Other Topics Concern Not on file Social History Narrative Not on file Social Drivers of Health Financial Resource Strain: Low Risk (07/12/2024) Overall Financial Resource Strain (CARDIA) Difficulty of Paying Living Expenses: Not very hard Food Insecurity: No Food Insecurity (07/12/2024) Hunger Vital Sign Worried About Running Out of Food in the Last Year: Never true Ran Out of Food in the Last Year: Never true Transportation Needs: No Transportation Needs (07/12/2024) PRAPARE - Transportation Lack of Transportation (Medical): No Lack of Transportation (Non-Medical): No Physical Activity: Inactive (07/12/2024) Exercise Vital Sign Days of Exercise per Week: 0 days Minutes of Exercise per Session: 0 min Stress: Stress Concern Present (07/12/2024) [place] [employer] - Occupational Stress Questionnaire Feeling of Stress : To some extent Social Connections: Moderately Integrated (07/12/2024) Social Connection and Isolation Panel [NHANES] Frequency of Communication with Friends and Family: Twice a week Frequency of Social Gatherings with Friends and Family: Once a week Attends Holiness Services: 1 to 4 times per year Active Member of Clubs or Organizations: No Attends Club or Organization Meetings: Never Marital Status: Living with partner Intimate Partner Violence: Not At Risk (07/24/2024) Humiliation, Afraid, Rape, and Kick questionnaire Fear of Current or Ex-Partner: No Emotionally Abused: No Physically Abused: No Sexually Abused: No Housing Stability: Low Risk (07/12/2024) Housing Stability Vital Sign Unable to Pay for Housing in the Last Year: No Number of Times Moved in the Last Year: 0 Homeless in the Last Year: No Family History: Family History Problem Relation Name Age of Onset Heart failure Father unsure of hx Heart disease Father unsure of hx Heart disease Brother unsure of hx Medications Prior to Admission: No current facility-administered medications on file prior to encounter. Current Outpatient Medications on File Prior to Encounter Medication Sig Dispense Refill apixaban (Eliquis) 5 MG tablet Take 1 tablet (5 mg) by mouth 2 times daily. 60 tablet 3 bumetanide (Bumex) 1 MG tablet Take 1 tablet (1 mg) by mouth 2 times daily. 60 tablet 11 carvedilol (Coreg) 25 MG tablet Take 1 tablet (25 mg) by mouth 2 times daily (with meals). 60 tablet 11 cholecalciferol (Vitamin D-3) 50 MCG (2000 UT) tablet Take 2 tablets (4,000 Units) by mouth daily. 180 tablet 0 losartan (Cozaar) 50 MG tablet Take 1 tablet (50 mg) by mouth daily. 30 tablet 11 magnesium oxide (Mag-Ox) 400 (240 Mg) MG tablet Take 1 tablet (400 mg) by mouth daily. 30 tablet 1 potassium chloride CR (Klor-Con M20) 20 MEQ ER tablet Take 2 tablets (40 mEq) by mouth daily. Do not crush or chew. 4 tablet 3 sodium bicarbonate 650 MG tablet Take 2 tablets (1,300 mg) by mouth 2 times daily. 360 tablet 0 spironolactone (Aldactone) 25 MG tablet Take 1 tablet (25 mg) by mouth daily. 30 tablet 11 [DISCONTINUED] furosemide (Lasix) 40 MG tablet Take 1 tablet (40 mg) by mouth 2 times daily. 60 tablet 11 [DISCONTINUED] losartan (Cozaar) 25 MG tablet Take 1 tablet (25 mg) by mouth daily. 30 tablet 11 [DISCONTINUED] spironolactone (Aldactone) 25 MG tablet Take 0.5 tablets (12.5 mg) by mouth daily. 15 tablet 11 Allergies: Allergies Allergen Reactions Torsemide Nausea And Vomiting Reports did not tolerate, refuses to take again Entresto [Sacubitril-Valsartan] Nausea And Vomiting REVIEW OF SYSTEMS: NEG with pert pos in HPI Vitals: BP 109/77 (BP Location: Left arm, Patient Position: Lying) Pulse 52 Temp 36.1 C (97 F) (Temporal) Resp 16 Ht 6' 1 (1.854 m) Wt 173 lb 3.2 oz (78.6 kg) SpO2 100% BMI 22.85 kg/m BMI Classification: Body mass index is 22.85 kg/m . Pulse Ox: SpO2 Av % Min: 85 % Max: 100 % Supplemental O2: O2 Flow Rate (L/min): 2 L/min PHYSICAL EXAM: Physical Exam Eyes: Extraocular Movements: Extraocular movements intact. Pupils: Pupils are equal, round, and reactive to light. Cardiovascular: Rate and Rhythm: Tachycardia present. Pulses: Normal pulses. Pulmonary: Effort: Pulmonary effort is normal. No respiratory distress. Abdominal: General: Abdomen is flat. Bowel sounds are normal. Tenderness: There is abdominal tenderness. Musculoskeletal: Right lower leg: Edema present. Left lower leg: Edema present. Neurological: Mental Status: He is alert and oriented to person, place, and time. Mental status is at baseline. Psychiatric: Thought Content: Thought content normal. DATA: CBC: Recent Labs 08/09/245 WBC 8.8 RBC 4.21* HGB 14.2 HCT 42.8 MCV 101.7* RDW 13.2 PLT 245 BMP: Recent Labs 08/09/24 2155 NA 139 K 3.8 CL 104 CO2 27 BUN 35* CREATININE 1.94* GLUCOSE 139* CALCIUM 8.8 ANIONGAP 8 LIVER PROFILE: Recent Labs 08/09/24 2155 AST 52* ALT 95* BILITOT 2.2* ALKPHOS 194* PROT 6.4 PT/INR: No results for input(s): PROTIME, INR in the last 72 hours. CARDIAC ENZYMES: No results for input(s): TROPONINI in the last 72 hours. I reviewed: [x] laboratory results [x] radiographic results At the time of today's encounter. Pt was advised of the results. Data: Per HPI (LOW: 2x CAT1 or independent historian MOD: 3x CAT1 or 1x CAT3 EXTENSIVE: 3x CAT1 and 1x CAT3) Assessment Discussed management with the ED provider and agree with hospitalization. Acute, acute on chronic, unstable/uncontrolled chronic problems/diagnoses: - Chest Pain - ADHF - SCHUYLER on CKD (?CRS) Stable chronic problems affecting care, new non-acute diagnoses: SEE HPI History of coronary artery disease CKD HTN Hx VTE- apixaban 5 mg BID HLD Meds Noncompliance Plan As a result of the above findings & factors, the following mgmt was pursued: - IV Lasix 40mg, monitor Cr, lytes - Continue Bumex 1mg BID - TELE - Fluid restriction (<1.5 L), salt restriction (<2g) - Daily wgts - Strict I/Os - CXR - Suppl O2 to titrate O2>92%, CPAP/BiPAP if needed - UA - Bladder scan - Nephro consult - TTE to evaluate for structural dysfunction and wall motion - AM labs, replace lytes prn - PT/OT/CM/SW - Delirium precautions: increase activity and limit nighttime disturbances - DVT prophylaxis: encourage ambulation and already anticoagulated Complexity: Acute illness or injury posing a threat to life or body function (HIGH). Risk: Admission to hospital-level care was considered or occurred (HIGH). Advance Directive: Full Code Anticipated Discharge - Date - TBD - Location - TBD - Pending the following - improvement in acute issue leading to hosp Extended Emergency Contact Information Primary Emergency Contact: KurtKaitlin tatum Mobile Relation: Significant Other Secondary Emergency Contact: Indira Medina Mobile Relation: Sister [employer] Carlo Medina : 1980 Primary Care Physician: No primary care provider on file. The patient and/or family/surrogate voluntarily agreed to participate in ACP services. Patient s cognitive capacity: FULL Code Status: Full Code ------- TOTAL time spent on H&P and ACP: 65 minutes were spent discussing the patient's resuscitation status and end of life care, with patient and/or family/surrogate AND patient care for this admission(including face to face, chart review, including discussion with ED providers and/or review of their notes, labs and images). Dasha Lyn MD Division of Hospitalist Medicine Acute [facility] documented in this [facility]02-11-2025 Emergency department Note* Deena Piper RN - 08/10/2024 7:41 PM EST Report called to 5W * Marycarmen Dias RN - 08/10/2024 6:33 PM EST Pt ambulatory to bathroom with steady gait. ERLEY * Marycarmen Dias RN - 08/10/2024 6:11 PM EST Pt reuestning meds for pain and nausea * Marycarmen Dias RN - 08/10/2024 3:58 PM EST Pt expressing frustration of continued wait time. Ice chips are provided per request ERLEY * Marycarmen Dias RN - 08/10/2024 2:43 PM EST [facility] contacted for update. Pt aware of continued wait time for bed assignment. No other requests at present time. ERLEY Dias RN - 08/10/2024 11:39 AM EST Pt declines four eyes skin check for admission ERLEY * Marycarmen Dias RN - 08/10/2024 11:30 AM EST PO fluids and light meal provided. Pt updated and aware of continued wait time for bed assignment. ERLEY Dias RN - 08/10/2024 9:45 AM EST Pt has oxygen removed and sats have been maintained at 97-100% on room air. Will continue to monitor. ERLEY * Deena Piper RN - 08/10/2024 1:40 AM EST This nurse returned to room, No urine in urinal or bedside commode, no bm in bedside commode noted.A wipe was in bedside commode. Commode emptied. Patients cardiac monitoring and bp cuff that patient removed was replaced. 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 Patient requesting to use restroom. The patient was provided with bedside commode, urinal, and warm wipes. The patient stated I am not an 78 year old man and can use thebathroom. The patient was educated on current condition and that he needed to wear oxygen and his blood pressures were soft and this was a preventative measure to keep him safe, risks vs benefits were discussed. This nurse left room to allow patient to use bedside commode. As this nurse was exitingroom, patient was observed pulling off monitoring equipment. * Deena Piper RN - 08/10/2024 12:51 AM EST Notified physician patients spo2 decreasing and blood pressures soft 2L o2 initiated * Deena Piper RN - 08/10/2024 12:07 AM EST Physician aware unable to collect 2nd trop * Deena Piper RN - 08/09/2024 10:12 PM EST Sheets changed per patient request * Deena Piper RN - 08/09/2024 9:29 PM EST The patient when this nurse was leaving room asked when he would be getting pain medications. Physician notified. * Joel Fernandes MD - 08/09/2024 9:09 PM EST EMERGENCY DEPARTMENT ENCOUNTER Pt Name: Carlo Medina Birthdate 1980 Date of evaluation: 08/09/2024 ED Provider: Jole Fernandes MD CHIEF COMPLAINT Chief Complaint Patient presents with Shortness of Breath Chest Pain Abdominal Pain HISTORY OF PRESENT ILLNESS (Location/Symptom, Timing/Onset, Context/Setting, Quality, Duration, Modifying Factors, Severity) Note limiting factors. I wore appropriate PPE for the entirety of this encounter. HPI Carlo Medina is a 44 y.o. who presents to the emergency department with chief complaint of chest pain, abdominal pain, shortness of breath, lightheadedness. Past medical history includes hypertension, hypercholesterolemia, nonischemic cardiomyopathy, heart failure, CKD, PE on Eliquis. He states yesterday morning around 3 AM he started having lower abdominal discomfort. States has had some nausea but not currently. Denies vomiting. Denies fevers chills. Denies abnormal urination flank pain constipation diarrhea. Denies prior abdominal surgeries. States yesterday evening he started having midsternal chest pain nonradiating associated with shortness of breath its intermittent nonradiating does not wrap return to the back. Denies diaphoresis. He states has had pain like this in the past. Denies any recent alcohol or drugs. States he has been compliant with his medications. Denies any vision or speech changes headache focal weakness numbness tingling or gait disturbance. Nursing Notes were reviewed. Limitations to history: None Outside historians: None REVIEW OF SYSTEMS Review of Systems Constitutional: Negative for chills and fever. HENT: Negative for ear pain and sore throat. Eyes: Negative for pain and visual disturbance. Respiratory: Positive for shortness of breath. Negative for cough. Cardiovascular: Positive for chest pain. Negative for palpitations. Gastrointestinal: Positive for abdominal pain. Negative for vomiting. Genitourinary: Negative for dysuria and hematuria. Musculoskeletal: Negative for arthralgias and back pain. Skin: Negative for color change and rash. Neurological: Positive for light-headedness. Negative for seizures and syncope. All other systems reviewed and are negative. Pertinent positives and negatives as per HPI. PAST MEDICAL HISTORY Past Medical History: Diagnosis Date Acute HFrEF (heart failure with reduced ejection fraction) ([facility]) 06/13/2024 Acute kidney injury superimposed on CKD ([facility]) ([facility]) 07/03/2024 At risk for obstructive sleep apnea 05/31/2024 o/p sleep study recommended during admission CHF (congestive heart failure) ([facility]) CKD (chronic kidney disease) H/O noncompliance with medical treatment, presenting hazards to health 06/19/2024 HFrEF (heart failure with reduced ejection fraction) ([facility]) 04/28/2024 History of left bundle branch block (LBBB) 06/19/2024 Hypercholesteremia Hypertension Left against medical advice 08/04/2024 Noncompliance 06/19/2024 NSTEMI (non-ST elevated myocardial infarction) ([facility]) 07/11/2024 Potential for deficient knowledge of congestive heart failure 08/05/2024 Pulmonary embolism ([facility]) Pulmonary vascular congestion 04/28/2024 Sinus tachycardia 06/19/2024 SURGICAL HISTORY Past Surgical History: Procedure Laterality Date CARDIAC CATHETERIZATION N/A 06/17/2024 Performed by Akilah Diaz MD at [facility] 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 CURRENT MEDICATIONS Previous Medications APIXABAN (ELIQUIS) 5 MG TABLET Take 1 tablet (5 mg) by mouth 2 times daily. BUMETANIDE (BUMEX) 1 MG TABLET Take 1 tablet (1 mg) by mouth 2 times daily. CARVEDILOL (COREG) 25 MG TABLET Take 1 tablet (25 mg) by mouth 2 times daily (with meals). CHOLECALCIFEROL (VITAMIN D-3) 50 MCG (2000 UT) TABLET Take 2 tablets (4,000 Units) by mouth daily. LOSARTAN (COZAAR) 50 MG TABLET Take 1 tablet (50 mg) by mouth daily. MAGNESIUM OXIDE (MAG-OX) 400 (240 MG) MG TABLET Take 1 tablet (400 mg) by mouth daily. POTASSIUM CHLORIDE CR (KLOR-CON M20) 20 MEQ ER TABLET Take 2 tablets (40 mEq) by mouth daily. Do not crush or chew. SODIUM BICARBONATE 650 MG TABLET Take 2 tablets (1,300 mg) by mouth 2 times daily. SPIRONOLACTONE (ALDACTONE) 25 MG TABLET Take 1 tablet (25 mg) by mouth daily. ALLERGIES Torsemide and Entresto [sacubitril-valsartan] FAMILY HISTORY Family History Problem Relation Name Age of Onset Heart failure Father unsure of hx Heart disease Father unsure of hx Heart disease Brother unsure of hx SOCIAL HISTORY Social History Socioeconomic History Marital status: Single Tobacco Use Smoking status: Never Passive exposure: Never Smokeless tobacco: Never Vaping Use Vaping status: Never Used Substance and Sexual Activity Alcohol use: Never Drug use: Never Comment: caffeine- none Sexual activity: Yes Partners: Female Social Drivers of Health Financial Resource Strain: Low Risk (07/12/2024) Overall Financial Resource Strain (CARDIA) Difficulty of Paying Living Expenses: Not very hard Food Insecurity: No Food Insecurity (07/12/2024) Hunger Vital Sign Worried About Running Out of Food in the Last Year: Never true Ran Out of Food in the Last Year: Never true Transportation Needs: No Transportation Needs (07/12/2024) PRAPARE - Transportation Lack of Transportation (Medical): No Lack of Transportation (Non-Medical): No Physical Activity: Inactive (07/12/2024) Exercise Vital Sign Days of Exercise per Week: 0 days Minutes of Exercise per Session: 0 min Stress: Stress Concern Present (07/12/2024) [place] [place] [employer] - Occupational Stress Questionnaire Feeling of Stress : To some extent Social Connections: Moderately Integrated (07/12/2024) Social Connection and Isolation Panel [NHANES] Frequency of Communication with Friends and Family: Twice a week Frequency of Social Gatherings with Friends and Family: Once a week Attends Holiness Services: 1 to 4 times per year Active Member of Clubs or Organizations: No Attends Club or Organization Meetings: Never Marital Status: Living with partner Intimate Partner Violence: Not At Risk (07/24/2024) Humiliation, Afraid, Rape, and Kick questionnaire Fear of Current or Ex-Partner: No Emotionally Abused: No Physically Abused: No Sexually Abused: No Housing Stability: Low Risk (07/12/2024) Housing Stability Vital Sign Unable to Pay for Housing in the Last Year: No Number of Times Moved in the Last Year: 0 Homeless in the Last Year: No SCREENINGS PHYSICAL EXAM ED Triage Vitals Temp Pulse Resp BP -- -- -- -- SpO2 Temp src Heart Rate Source Patient Position -- -- -- -- BP Location FiO2 (%) -- -- Physical Exam Vitals and nursing note reviewed. Constitutional: General: He is not in acute distress. Appearance: He is well-developed. He is not ill-appearing, toxic-appearing or diaphoretic. HENT: Head: Normocephalic and atraumatic. Mouth/Throat: Mouth: Mucous membranes are moist. Pharynx: Oropharynx is clear. Eyes: Extraocular Movements: Extraocular movements intact. Conjunctiva/sclera: Conjunctivae normal. Pupils: Pupils are equal, round, and reactive to light. Neck: Thyroid: No thyromegaly. Vascular: No JVD. Cardiovascular: Rate and Rhythm: Normal rate and regular rhythm. Pulses: Radial pulses are 2+ on the right side and 2+ on the left side. Heart sounds: No murmur heard. Pulmonary: Effort: Pulmonary effort is normal. No tachypnea or respiratory distress. Breath sounds: Normal breath sounds. No decreased breath sounds or wheezing. Chest: Chest wall: No mass or tenderness. Abdominal: Palpations: Abdomen is soft. Tenderness: There is generalized abdominal tenderness. There is no right CVA tenderness, left CVA tenderness, guarding or rebound. Negative signs include Melendez's sign and McBurney's sign. Hernia: No hernia is present. Musculoskeletal: General: No swelling. Cervical back: Normal range of motion and neck supple. Right lower leg: No tenderness. Edema present. Left lower leg: No tenderness. Edema present. Comments: Mild edema around both ankles, symmetric, no venous cords or cellulitis Skin: General: Skin is warm and dry. Capillary Refill: Capillary refill takes less than 2 seconds. Neurological: General: No focal deficit present. Mental Status: He is alert and oriented to person, place, and time. Comments: NIH of 0 Psychiatric: Mood and Affect: Mood normal. DIAGNOSTIC RESULTS Procedures/EKG: EKG was reviewed by myself. Physician EKG interpretation can be found in [facility] RADIOLOGY (Per Emergency Physician): Chest x-ray shows enlarged cardiac silhouette Interpretation per the Radiologist below, if available at the time of this note: XR chest 1 view Final Result Enlarged cardiac silhouette similar to previous exam Report Dictated on Electronically Signed By: Joel Hi MD Electronically Signed Date/Time: 08/09/2024 9:55 PM EST ED BEDSIDE ULTRASOUND: Performed by ED Physician - none LABS: Labs Reviewed CBC WITH AUTO DIFFERENTIAL - Abnormal Result Value Auto WBC 8.8 RBC 4.21 (*) Hemoglobin 14.2 Hematocrit 42.8 MCV 101.7 (*) MCH 33.7 MCHC 33.2 RDW 13.2 Platelets 245 MPV 9.9 nRBC 0.0 Neutrophils Relative 57.1 Lymphocytes Relative 35.6 Monocytes Relative 6.5 Eosinophils Relative 0.3 Basophils Relative 0.3 Immature Grans % 0.2 Neutrophils Absolute 5.0 Lymphocytes Absolute 3.1 Monocytes Absolute 0.6 Eosinophils Absolute 0.0 Basophils Absolute 0.0 Immature Grans Absolute 0.0 NT PRO BNP - Abnormal NT PRO BNP 16,371 (*) COMPREHENSIVE METABOLIC PANEL - Abnormal SODIUM 139 POTASSIUM 3.8 CHLORIDE 104 CARBON DIOXIDE 27 ANION GAP 8 UREA NITROGEN 35 (*) CREATININE 1.94 (*) GLUCOSE 139 (*) CALCIUM 8.8 AST (SGOT) 52 (*) ALT 95 (*) ALKALINE PHOSPHATASE 194 (*) ALBUMIN 3.4 (*) BILIRUBIN, TOTAL 2.2 (*) TOTAL PROTEIN 6.4 eGFR 42.4 (*) HIGH SENSITIVITY TROPONIN, SERIAL BASELINE - Normal Troponin HS Serial Baseline 31 LIPASE - Normal LIPASE 16 HIGH SENSITIVITY TROPONIN, SERIAL, SECOND TEST All other labs were within normal range or not returned as of this dictation. EMERGENCY DEPARTMENT COURSE and DIFFERENTIAL DIAGNOSIS/MDM: Vitals: Vitals: 08/10/24 1715 08/10/24 1800 08/10/24 1845 08/10/24 1900 BP: 102/89 103/52 BP Location: Patient Position: Pulse: 100 101 102 99 Resp: 16 16 18 15 Temp: TempSrc: SpO2: 100% 100% 100% 100% Weight: Height: 44-year-old male presents for chest pain, abdominal pain, shortness of breath, lightheadedness. Differential electrolyte derangement, arrhythmia, ACS, pancreatitis, peptic ulcer disease, pneumonia. He is tachycardic. He is afebrile. Medical history impact this was includes nonischemic cardiomyopathy. Social history impacting this visit includes treatment adherence. I reviewed outpatient cardiology visit from 08/04/2024 regarding his nonischemic cardiomyopathy and goal-directed therapy. Will give low-dose morphine and Zofran, his EKG shows no new ischemia. Will get cardiac abdominal labs chest x- ray. Low suspicion for PE at this time given anticoagulated. Doubt aortic dissection no ripping tearing pain to the back and equal radial pulses. Diagnoses as of 08/10/241906 Acute kidney injury superimposed on CKD (HCC) (HCC) Congestive heart failure, unspecified HF chronicity, unspecified heart failure type ([facility]) Medications morphine injection 2 mg (2 mg IntraVENous Given 08/09/242203) ondansetron (Zofran) injection 4 mg (4 mg IntraVENous Given 08/09/242201) ondansetron (Zofran) injection 4 mg (4 mg IntraVENous Given 08/10/241838) morphine injection 2 mg (2 mg IntraVENous Given 08/10/241837) REVAL: Labs reviewed by me and with the patient. Troponin is 31 in normal range. BNP chronically elevated.Cardiomegaly seen on chest x-ray but no pulmonary edema. He has worsening renal and liver function.He has normal lipase. I considered a CT abdomen pelvis however he has had several of these in the past couple of months with similar complaints which have not shown anything other than ascites. He is afebrile I doubt SBP he has no fluid wave. Given worsening labs and his known CHF I believe he requires admission. I spoke with Dr. Webb who accepts for admission, will be awaiting a bed at [facility]. I informed patient I would re-order his home meds but he declined and stated he would rather have them at [facility]. CRITICAL CARE TIME CONSULTS: None PROCEDURES: Unless otherwise noted below, none Procedures Patients symptoms are consistent with sepsis, severe sepsis, or septic shock (If yes use .sepsiscoremeasure): FINAL IMPRESSION 1. Acute kidney injury superimposed on CKD (HCC) ([facility]) 2. Congestive heart failure, unspecified HF chronicity, unspecified heart failure type ([facility]) DISPOSITION Admit 08/09/2024 11:43:34 PM PATIENT REFERRED TO: No follow-up provider specified. DISCHARGE MEDICATIONS: New Prescriptions No medications on file (Comment: Please note this report has been produced using speech recognition software and may contain errors related to that system including errors in grammar, punctuation, and spelling, as well as words and phrases that may be inappropriate. If there are any questions or concerns please feel freeto contact the dictating provider for clarification.) Joel Fernandes MD (electronically signed) Emergency Medicine Provider Joel Fernandes MD 08/09/24 5714 Joel Fernandes MD 08/10/24 6289 * Deena Piper RN - 08/09/2024 9:09 PM EST The patient ambulated to room 7. He is complaining of having chest pain, shortness of breath and abdominal pain that started on day previous. He stated that he has current heart conditions. EKG collected in Triage. Patient states he is a hard stick due to giving blood frequently and may require ultrasound IV if needed. documented in this [facility]02-10-2025 NoteChart reviewed. 2nd attempt to contact patient for transitions post-discharge outreach. No answer, left VM to please return my call. Will follow up again. [facility]02-06-2025 Telephone encounter Note* Telephone Encounter - Ally Machado RN - 08/05/2024 1:33 PM EST Lengthy conversation with the pt. He was unsure if he plans to follow with Dr Astudillo or any doctors in [place] as he was really disappointed in the ER last night. Explained that it would have been our recommendation to stay in the ER for further diuresis etc, but he left after 20 minutes. Reviewed labs with the pt and high congestion marker and that the lasix is not working as well as it should be, will switch to bumex 1mg bid per Dr Astudillo. Confirmed lostartan and jorge doses and that he should decrease potassium to 20 meq daily. Pt confirmed an understanding. Called MICHELA/kamaljit to confirm these medications. Left a VM with the above noted medication changes and invited them to call back with any questions. [id number] Miscellaneous Notes* Telephone Encounter - Ally Machado RN - 08/05/2024 1:33 PM EST Lengthy conversation with the pt. He was unsure if he plans to follow with Dr Astudillo or any doctors in [place] as he was really disappointed in the ER last night. Explained that it would have been our recommendation to stay in the ER for further diuresis etc, but he left after 20 minutes. Reviewed labs with the pt and high congestion marker and that the lasix is not working as well as it should be, will switch to bumex 1mg bid per Dr Astudillo. Confirmed lostartan and jorge doses and that he should decrease potassium to 20 meq daily. Pt confirmed an understanding. Called MICHELA/kamaljit to confirm these medications. Left a VM with the above noted medication changes and invited them to call back with any questions. * Telephone Encounter - Sergei Astudillo MD - 08/05/2024 1:10 PM EST Labs reviewed -- I still recommedn the med changes from yesterday (increase Losartan, Increase Sage). He may decrease potassium supplement to 20 mEq. He denied SOB yesterday -- however, he did note that the lasix didn't make him urinate much about baselline. He can try Bumex 1 mg BID to REPLACE Lasix to see if this helps him urinate more and improve his SOB * Telephone Encounter - Ally Machado RN - 08/05/2024 1:04 PM EST Pt presented to ER last evening, approx [address] Astudillo in office. Pt then left theER AMA, less than 20 minutes after arriving to the ER. Dr Astudillo will review labs * Telephone Encounter - Crisyt Lopez RN - 08/05/2024 12:01 PM EST Pt called into Dr. Zhang's office stating his heart rate this morning is 58 and he read on the internet to seek medical attention if the HR is less than 60. He states he thinks his blood pressure this morning 116/97. Pt also states his HR was 51 last night. HR increases with activity. Pt denies dizziness, weakness, feeling like he will pass out. Pt stating that he is having SOB and chest pain. After further questioning he states he has this occasionally and it is not new. Patient was seen in the ED last night for the same sx. He states he was not given any answers from the tests they completed yesterday. Asked patient to reach out to Dr. Astudillo's office since he was seen yesterday in their office. Pt girlfriend states they have this number and will call that office. Patient in NAD. [facility] [id number] Telephone encounter Note* Telephone Encounter - Sergei Astudillo MD - 08/05/2024 1:10 PM EST Labs reviewed -- I still recommedn the med changes from yesterday (increase Losartan, Increase Jorge). He may decrease potassium supplement to 20 mEq. He denied SOB yesterday -- however, he did note that the lasix didn't make him urinate much about baselline. He can try Bumex 1 mg BID to REPLACE Lasix to see if this helps him urinate more and improve his SOB [facility] [id number] Telephone encounter Note* Telephone Encounter - Ally Machado RN - 08/05/2024 1:04 PM EST Pt presented to ER last evening, approx [address] Astudillo in office. Pt then left theER AMA, less than 20 minutes after arriving to the ER. Dr Astudillo will review labs [facility]02-06-2025 Telephone encounter Note* Telephone Encounter - Cristy Lopez RN - 08/05/2024 12:01 PM EST Pt called into Dr. Zhang's office stating his heart rate this morning is 58 and he read on the internet to seek medical attention if the HR is less than 60. He states he thinks his blood pressure this morning 116/97. Pt also states his HR was 51 last night. HR increases with activity. Pt denies dizziness, weakness, feeling like he will pass out. Pt stating that he is having SOB and chest pain. After further questioning he states he has this occasionally and it is not new. Patient was seen in the ED last night for the same sx. He states he was not given any answers from the tests they completed yesterday. Asked patient to reach out to Dr. Astudillo's office since he was seen yesterday in their office. Pt girlfriend states they have this number and will call that office. Patient in NAD. [facility]02-06-2025 Emergency department Note* Kelly Spangler RN - 08/05/2024 9:57 AM EST Pt came up to this RN stating he wanted to leave and was done waiting. 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 Pt ambulated out of IRP with steady gait. Ashtyn JAMES made aware pt left [id number] Emergency department Note* Kelly Spangler RN - 08/05/2024 9:57 AM EST Pt came up to this RN stating he wanted to leave and was done waiting. 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 Pt ambulated out of IRP with steady gait. Ashtyn JAMES made aware pt left * Angel Luis Mejia APRN - VIKKI - 08/04/2024 9:38 PM EST EMERGENCY DEPARTMENT ENCOUNTER Pt Name: Carlo Medina Birthdate 1980 Date of evaluation: 08/04/2024 ED Provider: THOMAS Pinto CNP Patient seen independently within my scope of practice with an Emergency Medicine attending available for supervision. CHIEF COMPLAINT Chest pain Chief Complaint Patient presents with Chest Pain Patient arrives via triage for c/o chest pain and shortness of breath x1 day HISTORY OF PRESENT ILLNESS (Location/Symptom, Timing/Onset, Context/Setting, Quality, Duration, Modifying Factors, Severity) Note limiting factors. I wore appropriate PPE for the entirety of this encounter. HPI Carlo Medina is a 44 y.o. who presents to the emergency department for evaluation treatment of chest pain and shortness of breath that started approximately 1 day ago. Patient reported to me that he felt like he could not catch his breath. Patient has a medical history of congestive heart failureacute kidney injury CHF CKD hypercholesterolemia hypertension noncompliance pulmonary embolism. Patient is on Eliquis. He denies any abdominal discomfort he denies any fever chills denies any aggravating alleviating factors. Patient reports that he does smoke drinks alcohol denies any illicit drug use or abuse. Nursing Notes were reviewed. Limitations to history: None Outside historians: None REVIEW OF SYSTEMS Review of Systems GENERAL: Denies weight change, fatigue, weakness, fever HEENT: Denies trauma, headache, dizziness, visual change, ear pain, hearing change, tinnitus, rhinorrhea CARDIAC: Denies hypertension, murmur, angina, palpations, dyspnea on exertion, complaint edema RESPIRATORY: Denies shortness of breath, wheezing, cough, sputum, asthma, COPD GI: Denies nausea, vomiting, change in bowels, abdominal pain URINARY: Denies changes in frequency/urgency, hematuria, incontinence, flank pain MUSCULOSKELETAL: Denies weakness, pain, change in ROM, redness, swelling NEURO: Denies loss in sensation, tingling, tremors, weakness, fainting or seizures ENDO: Denies heat/cold intolerance, polyuria, polydipsia, or swelling around neck PSYCH: Denies changes in mood, anxiety, depression, tension, memory Pertinent positives and negatives as per HPI. PAST MEDICAL HISTORY Past Medical History: Diagnosis Date Acute HFrEF (heart failure with reduced ejection fraction) ([facility]) 06/13/2024 Acute kidney injury superimposed on CKD ([facility]) ([facility]) 07/03/2024 At risk for obstructive sleep apnea 05/31/2024 o/p sleep study recommended during admission CHF (congestive heart failure) ([facility]) CKD (chronic kidney disease) HFrEF (heart failure with reduced ejection fraction) ([facility]) 04/28/2024 History of left bundle branch block (LBBB) 06/19/2024 Hypercholesteremia Hypertension Noncompliance 06/19/2024 NSTEMI (non-ST elevated myocardial infarction) ([facility]) 07/11/2024 Pulmonary embolism ([facility]) Pulmonary vascular congestion 04/28/2024 Sinus tachycardia 06/19/2024 SURGICAL HISTORY Past Surgical History: Procedure Laterality Date CARDIAC CATHETERIZATION N/A 06/17/2024 Performed by Akilah Diaz MD at [facility] 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 CURRENT MEDICATIONS Previous Medications APIXABAN (ELIQUIS) 5 MG TABLET Take 1 tablet (5 mg) by mouth 2 times daily. CARVEDILOL (COREG) 25 MG TABLET Take 1 tablet (25 mg) by mouth 2 times daily (with meals). CHOLECALCIFEROL (VITAMIN D-3) 50 MCG (2000 UT) TABLET Take 2 tablets (4,000 Units) by mouth daily. FUROSEMIDE (LASIX) 40 MG TABLET Take 1 tablet (40 mg) by mouth 2 times daily. LOSARTAN (COZAAR) 50 MG TABLET Take 1 tablet (50 mg) by mouth daily. MAGNESIUM OXIDE (MAG-OX) 400 (240 MG) MG TABLET Take 1 tablet (400 mg) by mouth daily. POTASSIUM CHLORIDE CR (KLOR-CON M20) 20 MEQ ER TABLET Take 2 tablets (40 mEq) by mouth daily. Do not crush or chew. SODIUM BICARBONATE 650 MG TABLET Take 2 tablets (1,300 mg) by mouth 2 times daily. SPIRONOLACTONE (ALDACTONE) 25 MG TABLET Take 1 tablet (25 mg) by mouth daily. ALLERGIES Torsemide and Entresto [sacubitril-valsartan] FAMILY HISTORY Family History Problem Relation Name Age of Onset Heart failure Father unsure of hx Heart disease Father unsure of hx Heart disease Brother unsure of hx SOCIAL HISTORY Social History Socioeconomic History Marital status: Single Tobacco Use Smoking status: Never Passive exposure: Never Smokeless tobacco: Never Vaping Use Vaping status: Never Used Substance and Sexual Activity Alcohol use: Never Drug use: Never Comment: caffeine- none Sexual activity: Yes Partners: Female Social Drivers of Health Financial Resource Strain: Low Risk (07/12/2024) Overall Financial Resource Strain (CARDIA) Difficulty of Paying Living Expenses: Not very hard Food Insecurity: No Food Insecurity (07/12/2024) Hunger Vital Sign Worried About Running Out of Food in the Last Year: Never true Ran Out of Food in the Last Year: Never true Transportation Needs: No Transportation Needs (07/12/2024) PRAPARE - Transportation Lack of Transportation (Medical): No Lack of Transportation (Non-Medical): No Physical Activity: Inactive (07/12/2024) Exercise Vital Sign Days of Exercise per Week: 0 days Minutes of Exercise per Session: 0 min Stress: Stress Concern Present (07/12/2024) [place] [employer] - Occupational Stress Questionnaire Feeling of Stress : To some extent Social Connections: Moderately Integrated (07/12/2024) Social Connection and Isolation Panel [NHANES] Frequency of Communication with Friends and Family: Twice a week Frequency of Social Gatherings with Friends and Family: Once a week Attends Holiness Services: 1 to 4 times per year Active Member of Clubs or Organizations: No Attends Club or Organization Meetings: Never Marital Status: Living with partner Intimate Partner Violence: Not At Risk (07/24/2024) Humiliation, Afraid, Rape, and Kick questionnaire Fear of Current or Ex-Partner: No Emotionally Abused: No Physically Abused: No Sexually Abused: No Housing Stability: Low Risk (07/12/2024) Housing Stability Vital Sign Unable to Pay for Housing in the Last Year: No Number of Times Moved in the Last Year: 0 Homeless in the Last Year: No SCREENINGS HEART Score History: Slightly suspicious ECG: Normal Age: 45-64 Risk Factors: >2 risk factors or hx of atherosclerotic disease Troponin: Less than or equal to normal limit HEART Score: 3 PHYSICAL EXAM ED Triage Vitals [08/04/24 2307] Temp Heart Rate Resp BP 37.8 C (100.1 F) 65 16 114/85 SpO2 Temp Source Heart Rate Source Patient Position 98 % Temporal Monitor -- BP Location FiO2 (%) -- -- Physical Exam Constitutional: Well developed, well nourished, no acute distress, non-toxic appearance Eyes: PERRL, conjunctiva normal HENT: Atraumatic, external ears normal, nose normal, oropharynx moist, no pharyngeal exudates. Neck- normal range of motion, no tenderness, supple Respiratory: No respiratory distress, normal breath sounds, no rales, no wheezing Cardiovascular: Normal rate, normal rhythm, no murmurs, no gallops, no rubs GI: Soft, nondistended, normal bowel sounds, nontender, no organomegaly, no mass, no rebound, no guarding : No costovertebral angle tenderness Musculoskeletal: No edema, no tenderness, no deformities. Back- no tenderness Integument: Well hydrated, no rash Lymphatic: No lymphadenopathy noted Neurologic: Alert & oriented x 3, CN 2-12 normal, normal motor function, normal sensory function, no focal deficits noted Psychiatric: Speech and behavior appropriate for age DIAGNOSTIC RESULTS RADIOLOGY (Per Emergency Physician): Interpretation per the Radiologist below, if available at the time of this note: XR chest 2 views Final Result Cardiac enlargement. No convincing acute pulmonary process seen. Report Dictated on Electronically Signed By: Christopher Faria MD Electronically Signed Date/Time: 08/05/2024 3:26 AM EST LABS: Labs Reviewed CBC WITH AUTO DIFFERENTIAL - Abnormal Result Value Auto WBC 6.8 RBC 4.22 (*) Hemoglobin 14.1 Hematocrit 42.7 MCV 101.2 (*) MCH 33.4 MCHC 33.0 RDW 12.9 Platelets 253 MPV 9.7 nRBC 0.0 Neutrophils Relative 57.5 Lymphocytes Relative 32.2 Monocytes Relative 9.5 Eosinophils Relative 0.4 Basophils Relative 0.3 Immature Grans % 0.1 Neutrophils Absolute 3.9 Lymphocytes Absolute 2.2 Monocytes Absolute 0.7 Eosinophils Absolute 0.0 Basophils Absolute 0.0 Immature Grans Absolute 0.0 BASIC METABOLIC PANEL - Abnormal SODIUM 133 (*) POTASSIUM 3.6 CHLORIDE 98 CARBON DIOXIDE 25 UREA NITROGEN 38 (*) CREATININE 1.62 (*) GLUCOSE 113 (*) CALCIUM 8.9 ANION GAP 10 eGFR 52.7 (*) NT PRO BNP - Abnormal NT PRO BNP 17,954 (*) HEPATIC FUNCTION PANEL - Abnormal BILIRUBIN, TOTAL 1.9 (*) BILIRUBIN, DIRECT 1.0 (*) ALKALINE PHOSPHATASE 173 (*) AST (SGOT) 50 (*) ALT 101 (*) ALBUMIN 3.4 (*) TOTAL PROTEIN 6.6 HIGH SENSITIVITY TROPONIN, SERIAL BASELINE - Normal Troponin HS Serial Baseline 22 MAGNESIUM - Normal MAGNESIUM 2.0 Narrative: Higher values can be expected in females during menses. HIGH SENSITIVITY TROPONIN, SERIAL, SECOND TEST All other labs were within normal range or not returned as of this dictation. EMERGENCY DEPARTMENT COURSE and DIFFERENTIAL DIAGNOSIS/MDM: Vitals: Vitals: 08/04/24 2307 08/05/24 0516 BP: 114/85 (!) 125/93 Pulse: 65 50 Resp: 16 Temp: 37.8 C (100.1 F) TempSrc: Temporal SpO2: 98% 97% Medications - No data to display MDM MDM elements: The patient presented with chief complaint of Chest pain. The differential diagnosis associated with this patient's presentation includes pneumonia, SCHUYLER, ACS, bronchitis, medication noncompliance. Our workup consisted of ordering/reviewing: A CBC BMP BNP troponin and EKG magnesium level serial troponins as well as a chest x-ray.. To aid in management, I performed an independent interpretation of Xray(s) dependent interpretationof the x-ray shows no consolidation no pneumothorax no pleural effusion. I also reviewed external records from Inpatient notes patient was admitted to the hospital in June for CHF SCHUYLER. The patient will be . Patient is in agreement with this plan. Patient's care was impacted by no PCP. Patient's care was significantly impacted by social determinants of health including Alcoholism andnoncompliant with medication regime. I have signed out Emergency Department care to Ivory Miles CNP. We discussed the pertinent history, physical exam, completed/pending test results (if applicable) and current treatment plan. Pleaserefer to his/her chart for this patients remaining Emergency ;Department course and final disposition. PROCEDURES: Unless otherwise noted below, none Procedures CRITICAL CARE TIME FINAL IMPRESSION 1. SCHUYLER (acute kidney injury) (HCC) 2. Shortness of breath 3. Chest pain, unspecified type DISPOSITION PATIENT REFERRED TO: No follow-up provider specified. DISCHARGE MEDICATIONS: New Prescriptions No medications on file (Comment: Please note this report has been produced using speech recognition software and may contain errors related to that system including errors in grammar, punctuation, and spelling, as well as words and phrases that may be inappropriate. If there are any questions or concerns please feel freeto contact the dictating provider for clarification.) Angel Luis Mejia APRN - VIKKI (electronically signed) Emergency Medicine Provider THOMAS Pearce CNP 08/05/24 0703 * THOMAS Prasad CNP - 08/04/2024 9:38 PM EST Emergency Department Encounter Location: [facility] EMERGENCY DEPT Patient: Carlo Medina : 1980 Date of evaluation: 08/04/2024 ED Provider: THOMAS Oconnell CNP Time received sign-out: 06 Carlo Medina was checked out to me by Jeanie Mejia NP. Please see his/her initial documentation for details of the patient's initial ED presentation, physical exam and completed studies. In brief, Carlo Medina is a 44 y.o. adult that presented to the emergency department of chest pain and shortness of breath that started approximately 1 day ago. Patient reported to me that he felt like he could not catch his breath. Patient has a medical history of congestive heart failure acute kidney injury CHF CKD hypercholesterolemia hypertension noncompliance pulmonary embolism. Patient shellie Eliquis. He denies any abdominal discomfort he denies any fever chills denies any aggravating alleviating factors. Patient reports that he does smoke drinks alcohol denies any illicit drug use or abuse. I have reviewed and interpreted all of the currently available lab results and diagnostics from this visit: Results for orders placed or performed during the hospital encounter of 08/05/24 ECG 12 lead Collection Time: 08/04/24 10:16 PM Result Value Ref Range Heart Rate 108 bpm QRSD Interval 99 ms QT Interval 356 ms QTC Interval 477 ms P [place] 74 degrees QRS [place] -22 degrees T Wave [place] 154 degrees IN Interval 157 ms CBC auto differential Collection Time: 08/05/24 3:06 AM Result Value Ref Range Auto WBC 6.8 3.6 - 10.7 10*3/uL RBC 4.22 (L) 4.40 - 5.90 10*6/uL Hemoglobin 14.1 13.0 - 18.0 g/dL Hematocrit 42.7 40.0 - 52.0 % MCV 101.2 (H) 77.0 - 99.0 fL MCH 33.4 26.0 - 34.0 pg MCHC 33.0 30.5 - 36.0 % RDW 12.9 11.5 - 15.0 % Platelets 253 140 - 440 10*3/uL MPV 9.7 9.0 - 12.7 fL nRBC 0.0 0.0 - 2.0 /100 WBCs Neutrophils Relative 57.5 38.0 - 82.0 % Lymphocytes Relative 32.2 15.0 - 45.0 % Monocytes Relative 9.5 5.0 - 13.0 % Eosinophils Relative 0.4 0.0 - 6.0 % Basophils Relative 0.3 0.0 - 2.0 % Immature Grans % 0.1 0.0 - 2.0 % Neutrophils Absolute 3.9 1.8 - 7.5 10*3/uL Lymphocytes Absolute 2.2 1.0 - 4.3 10*3/uL Monocytes Absolute 0.7 0.0 - 0.9 10*3/uL Eosinophils Absolute 0.0 0.0 - 0.5 10*3/uL Basophils Absolute 0.0 0.0 - 0.2 10*3/uL Immature Grans Absolute 0.0 <0.1 10*3/uL Basic metabolic panel Collection Time: 08/05/24 3:06 AM Result Value Ref Range SODIUM 133 (L) 136 - 145 mmol/L POTASSIUM 3.6 3.5 - 5.1 mmol/L CHLORIDE 98 98 - 107 mmol/L CARBON DIOXIDE 25 22 - 29 mmol/L UREA NITROGEN 38 (H) 8 - 21 mg/dL CREATININE 1.62 (H) 0.72 - 1.25 mg/dL GLUCOSE 113 (H) 74 - 100 mg/dL CALCIUM 8.9 8.4 - 10.2 mg/dL ANION GAP 10 3 - 13 mmol/L eGFR 52.7 (L) >60.0 mL/min/1.73m*2 NT PRO BNP Collection Time: 08/05/24 3:06 AM Result Value Ref Range NT PRO BNP 17,954 (H) <125 pg/mL Serial Troponin, High Sensitivity Collection Time: 08/05/24 3:06 AM Result Value Ref Range Troponin HS Serial Baseline 22 <=35 ng/L Magnesium Collection Time: 08/05/24 3:06 AM Result Value Ref Range MAGNESIUM 2.0 1.6 - 2.6 mg/dL Hepatic function panel Collection Time: 08/05/24 3:06 AM Result Value Ref Range BILIRUBIN, TOTAL 1.9 (H) <1.2 mg/dL BILIRUBIN, DIRECT 1.0 (H) <0.5 mg/dL ALKALINE PHOSPHATASE 173 (H) 40 - 150 U/L AST (SGOT) 50 (H) <34 U/L ALT 101 (H) <40 U/L ALBUMIN 3.4 (L) 3.5 - 5.0 g/dL TOTAL PROTEIN 6.6 6.4 - 8.3 g/dL ECG 12 lead Collection Time: 08/05/24 7:06 AM Result Value Ref Range Heart Rate 111 bpm QRSD Interval 103 ms QT Interval 367 ms QTC Interval 499 ms P [place] 57 degrees QRS [place] -49 degrees T Wave [place] 114 degrees IN Interval 140 ms Troponin, High Sensitivity, Serial, Second Test Collection Time: 08/05/24 8:15 AM Result Value Ref Range 2h Troponin HS (Serial 2nd Troponin) 19 <=35 ng/L XR chest 2 views Final Result Cardiac enlargement. No convincing acute pulmonary process seen. Report Dictated on Electronically Signed By: Christopher Faria MD Electronically Signed Date/Time: 08/05/2024 3:26 AM EST Final ED Course and MDM: Carlo Medina is a 44 y.o. whose care was signed out to me by the outgoing provider. In brief, patient presented with chest pain, SOB for a few days. Extensive cardiac hx and hx of DVT. He is anticoagulated. Work up completed and noted to be significant for a normal HST and normal delta HST. Mild SCHUYLER with hx of CKD. Chronic transaminitis at baseline. BNP 17,000, which upon review is noted to be his baseline. Chest xray is without acute cardiopulmonary process. Prior to being able to reviewed results with patient and determine disposition he requested that nursing remove his IV and he left without waiting for me. Medications - No data to display I Ashtyn Miles, THOMAS - WHITING MACHINE OPERATOR am the retail store clerk of record. Final Impression 1. SCHUYLER (acute kidney injury) (HCC) 2. Shortness of breath 3. Chest pain, unspecified type DISPOSITION Eloped 08/05/2024 10:02:30 AM (Please note that portions of this note may have been completed with a voice recognition program. Efforts were made to edit the dictations but occasionally words are mis-transcribed.) THOMAS Oconnell CNP [employer] THOMAS Prasad CNP 08/05/24 1015 documented in this [facility]02-05-2025 Physician Emergency department Note* THOMAS Pearce CNP - 08/04/2024 9:38 PM EST EMERGENCY DEPARTMENT ENCOUNTER Pt Name: Carlo Medina Birthdate 1980 Date of evaluation: 08/04/2024 ED Provider: THOMAS Pinto CNP Patient seen independently within my scope of practice with an Emergency Medicine attending available for supervision. CHIEF COMPLAINT Chest pain Chief Complaint Patient presents with Chest Pain Patient arrives via triage for c/o chest pain and shortness of breath x1 day HISTORY OF PRESENT ILLNESS (Location/Symptom, Timing/Onset, Context/Setting, Quality, Duration, Modifying Factors, Severity) Note limiting factors. I wore appropriate PPE for the entirety of this encounter. HPI Carlo Medina is a 44 y.o. who presents to the emergency department for evaluation treatment of chest pain and shortness of breath that started approximately 1 day ago. Patient reported to me that he felt like he could not catch his breath. Patient has a medical history of congestive heart failureacute kidney injury CHF CKD hypercholesterolemia hypertension noncompliance pulmonary embolism. Patient is on Eliquis. He denies any abdominal discomfort he denies any fever chills denies any aggravating alleviating factors. Patient reports that he does smoke drinks alcohol denies any illicit drug use or abuse. Nursing Notes were reviewed. Limitations to history: None Outside historians: None REVIEW OF SYSTEMS Review of Systems GENERAL: Denies weight change, fatigue, weakness, fever HEENT: Denies trauma, headache, dizziness, visual change, ear pain, hearing change, tinnitus, rhinorrhea CARDIAC: Denies hypertension, murmur, angina, palpations, dyspnea on exertion, complaint edema RESPIRATORY: Denies shortness of breath, wheezing, cough, sputum, asthma, COPD GI: Denies nausea, vomiting, change in bowels, abdominal pain URINARY: Denies changes in frequency/urgency, hematuria, incontinence, flank pain MUSCULOSKELETAL: Denies weakness, pain, change in ROM, redness, swelling NEURO: Denies loss in sensation, tingling, tremors, weakness, fainting or seizures ENDO: Denies heat/cold intolerance, polyuria, polydipsia, or swelling around neck PSYCH: Denies changes in mood, anxiety, depression, tension, memory Pertinent positives and negatives as per HPI. PAST MEDICAL HISTORY Past Medical History: Diagnosis Date Acute HFrEF (heart failure with reduced ejection fraction) ([facility]) 06/13/2024 Acute kidney injury superimposed on CKD ([facility]) ([facility]) 07/03/2024 At risk for obstructive sleep apnea 05/31/2024 o/p sleep study recommended during admission CHF (congestive heart failure) ([facility]) CKD (chronic kidney disease) HFrEF (heart failure with reduced ejection fraction) ([facility]) 04/28/2024 History of left bundle branch block (LBBB) 06/19/2024 Hypercholesteremia Hypertension Noncompliance 06/19/2024 NSTEMI (non-ST elevated myocardial infarction) ([facility]) 07/11/2024 Pulmonary embolism ([facility]) Pulmonary vascular congestion 04/28/2024 Sinus tachycardia 06/19/2024 SURGICAL HISTORY Past Surgical History: Procedure Laterality Date CARDIAC CATHETERIZATION N/A 06/17/2024 Performed by Akilah Diaz MD at [facility] 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 CURRENT MEDICATIONS Previous Medications APIXABAN (ELIQUIS) 5 MG TABLET Take 1 tablet (5 mg) by mouth 2 times daily. CARVEDILOL (COREG) 25 MG TABLET Take 1 tablet (25 mg) by mouth 2 times daily (with meals). CHOLECALCIFEROL (VITAMIN D-3) 50 MCG (2000 UT) TABLET Take 2 tablets (4,000 Units) by mouth daily. FUROSEMIDE (LASIX) 40 MG TABLET Take 1 tablet (40 mg) by mouth 2 times daily. LOSARTAN (COZAAR) 50 MG TABLET Take 1 tablet (50 mg) by mouth daily. MAGNESIUM OXIDE (MAG-OX) 400 (240 MG) MG TABLET Take 1 tablet (400 mg) by mouth daily. POTASSIUM CHLORIDE CR (KLOR-CON M20) 20 MEQ ER TABLET Take 2 tablets (40 mEq) by mouth daily. Do not crush or chew. SODIUM BICARBONATE 650 MG TABLET Take 2 tablets (1,300 mg) by mouth 2 times daily. SPIRONOLACTONE (ALDACTONE) 25 MG TABLET Take 1 tablet (25 mg) by mouth daily. ALLERGIES Torsemide and Entresto [sacubitril-valsartan] FAMILY HISTORY Family History Problem Relation Name Age of Onset Heart failure Father unsure of hx Heart disease Father unsure of hx Heart disease Brother unsure of hx SOCIAL HISTORY Social History Socioeconomic History Marital status: Single Tobacco Use Smoking status: Never Passive exposure: Never Smokeless tobacco: Never Vaping Use Vaping status: Never Used Substance and Sexual Activity Alcohol use: Never Drug use: Never Comment: caffeine- none Sexual activity: Yes Partners: Female Social Drivers of Health Financial Resource Strain: Low Risk (07/12/2024) Overall Financial Resource Strain (CARDIA) Difficulty of Paying Living Expenses: Not very hard Food Insecurity: No Food Insecurity (07/12/2024) Hunger Vital Sign Worried About Running Out of Food in the Last Year: Never true Ran Out of Food in the Last Year: Never true Transportation Needs: No Transportation Needs (07/12/2024) PRAPARE - Transportation Lack of Transportation (Medical): No Lack of Transportation (Non-Medical): No Physical Activity: Inactive (07/12/2024) Exercise Vital Sign Days of Exercise per Week: 0 days Minutes of Exercise per Session: 0 min Stress: Stress Concern Present (07/12/2024) [place] [employer] - Occupational Stress Questionnaire Feeling of Stress : To some extent Social Connections: Moderately Integrated (07/12/2024) Social Connection and Isolation Panel [NHANES] Frequency of Communication with Friends and Family: Twice a week Frequency of Social Gatherings with Friends and Family: Once a week Attends Holiness Services: 1 to 4 times per year Active Member of Clubs or Organizations: No Attends Club or Organization Meetings: Never Marital Status: Living with partner Intimate Partner Violence: Not At Risk (07/24/2024) Humiliation, Afraid, Rape, and Kick questionnaire Fear of Current or Ex-Partner: No Emotionally Abused: No Physically Abused: No Sexually Abused: No Housing Stability: Low Risk (07/12/2024) Housing Stability Vital Sign Unable to Pay for Housing in the Last Year: No Number of Times Moved in the Last Year: 0 Homeless in the Last Year: No SCREENINGS HEART Score History: Slightly suspicious ECG: Normal Age: 45-64 Risk Factors: >2 risk factors or hx of atherosclerotic disease Troponin: Less than or equal to normal limit HEART Score: 3 PHYSICAL EXAM ED Triage Vitals [08/04/24 2307] Temp Heart Rate Resp BP 37.8 C (100.1 F) 65 16 114/85 SpO2 Temp Source Heart Rate Source Patient Position 98 % Temporal Monitor -- BP Location FiO2 (%) -- -- Physical Exam Constitutional: Well developed, well nourished, no acute distress, non-toxic appearance Eyes: PERRL, conjunctiva normal HENT: Atraumatic, external ears normal, nose normal, oropharynx moist, no pharyngeal exudates. Neck- normal range of motion, no tenderness, supple Respiratory: No respiratory distress, normal breath sounds, no rales, no wheezing Cardiovascular: Normal rate, normal rhythm, no murmurs, no gallops, no rubs GI: Soft, nondistended, normal bowel sounds, nontender, no organomegaly, no mass, no rebound, no guarding : No costovertebral angle tenderness Musculoskeletal: No edema, no tenderness, no deformities. Back- no tenderness Integument: Well hydrated, no rash Lymphatic: No lymphadenopathy noted Neurologic: Alert & oriented x 3, CN 2-12 normal, normal motor function, normal sensory function, no focal deficits noted Psychiatric: Speech and behavior appropriate for age DIAGNOSTIC RESULTS RADIOLOGY (Per Emergency Physician): Interpretation per the Radiologist below, if available at the time of this note: XR chest 2 views Final Result Cardiac enlargement. No convincing acute pulmonary process seen. Report Dictated on Electronically Signed By: Christopher Faria MD Electronically Signed Date/Time: 08/05/2024 3:26 AM EST LABS: Labs Reviewed CBC WITH AUTO DIFFERENTIAL - Abnormal Result Value Auto WBC 6.8 RBC 4.22 (*) Hemoglobin 14.1 Hematocrit 42.7 MCV 101.2 (*) MCH 33.4 MCHC 33.0 RDW 12.9 Platelets 253 MPV 9.7 nRBC 0.0 Neutrophils Relative 57.5 Lymphocytes Relative 32.2 Monocytes Relative 9.5 Eosinophils Relative 0.4 Basophils Relative 0.3 Immature Grans % 0.1 Neutrophils Absolute 3.9 Lymphocytes Absolute 2.2 Monocytes Absolute 0.7 Eosinophils Absolute 0.0 Basophils Absolute 0.0 Immature Grans Absolute 0.0 BASIC METABOLIC PANEL - Abnormal SODIUM 133 (*) POTASSIUM 3.6 CHLORIDE 98 CARBON DIOXIDE 25 UREA NITROGEN 38 (*) CREATININE 1.62 (*) GLUCOSE 113 (*) CALCIUM 8.9 ANION GAP 10 eGFR 52.7 (*) NT PRO BNP - Abnormal NT PRO BNP 17,954 (*) HEPATIC FUNCTION PANEL - Abnormal BILIRUBIN, TOTAL 1.9 (*) BILIRUBIN, DIRECT 1.0 (*) ALKALINE PHOSPHATASE 173 (*) AST (SGOT) 50 (*) ALT 101 (*) ALBUMIN 3.4 (*) TOTAL PROTEIN 6.6 HIGH SENSITIVITY TROPONIN, SERIAL BASELINE - Normal Troponin HS Serial Baseline 22 MAGNESIUM - Normal MAGNESIUM 2.0 Narrative: Higher values can be expected in females during menses. HIGH SENSITIVITY TROPONIN, SERIAL, SECOND TEST All other labs were within normal range or not returned as of this dictation. EMERGENCY DEPARTMENT COURSE and DIFFERENTIAL DIAGNOSIS/MDM: Vitals: Vitals: 08/04/24 2307 08/05/24 0516 BP: 114/85 (!) 125/93 Pulse: 65 50 Resp: 16 Temp: 37.8 C (100.1 F) TempSrc: Temporal SpO2: 98% 97% Medications - No data to display MDM MDM elements: The patient presented with chief complaint of Chest pain. The differential diagnosis associated with this patient's presentation includes pneumonia, SCHUYLER, ACS, bronchitis, medication noncompliance. Our workup consisted of ordering/reviewing: A CBC BMP BNP troponin and EKG magnesium level serial troponins as well as a chest x-ray.. To aid in management, I performed an independent interpretation of Xray(s) dependent interpretationof the x-ray shows no consolidation no pneumothorax no pleural effusion. I also reviewed external records from Inpatient notes patient was admitted to the hospital in June for CHF SCHUYLER. The patient will be . Patient is in agreement with this plan. Patient's care was impacted by no PCP. Patient's care was significantly impacted by social determinants of health including Alcoholism andnoncompliant with medication regime. I have signed out Emergency Department care to Ivory Miles CNP. We discussed the pertinent history, physical exam, completed/pending test results (if applicable) and current treatment plan. Pleaserefer to his/her chart for this patients remaining Emergency ;Department course and final disposition. PROCEDURES: Unless otherwise noted below, none Procedures CRITICAL CARE TIME FINAL IMPRESSION 1. SCHUYLER (acute kidney injury) (HCC) 2. Shortness of breath 3. Chest pain, unspecified type DISPOSITION PATIENT REFERRED TO: No follow-up provider specified. DISCHARGE MEDICATIONS: New Prescriptions No medications on file (Comment: Please note this report has been produced using speech recognition software and may contain errors related to that system including errors in grammar, punctuation, and spelling, as well as words and phrases that may be inappropriate. If there are any questions or concerns please feel freeto contact the dictating provider for clarification.) THOMAS Pinto CNP (electronically signed) Emergency Medicine Provider THOMAS Pearce CNP 08/05/24 0703 [id number] Emergency department Note* THOMAS Prasad CNP - 08/04/2024 9:38 PM EST Emergency Department Encounter Location: [facility] EMERGENCY DEPT Patient: Carlo Medina : 1980 Date of evaluation: 08/04/2024 ED Provider: THOMAS Oconnell CNP Time received sign-out: 0600 Carlo Medina was checked out to me by Jeanie Mejia NP. Please see his/her initial documentation for details of the patient's initial ED presentation, physical exam and completed studies. In brief, Carlo Medina is a 44 y.o. adult that presented to the emergency department of chest pain and shortness of breath that started approximately 1 day ago. Patient reported to me that he felt like he could not catch his breath. Patient has a medical history of congestive heart failure acute kidney injury CHF CKD hypercholesterolemia hypertension noncompliance pulmonary embolism. Patient shellie Eliquis. He denies any abdominal discomfort he denies any fever chills denies any aggravating alleviating factors. Patient reports that he does smoke drinks alcohol denies any illicit drug use or abuse. I have reviewed and interpreted all of the currently available lab results and diagnostics from this visit: Results for orders placed or performed during the hospital encounter of 08/05/24 ECG 12 lead Collection Time: 08/04/24 10:16 PM Result Value Ref Range Heart Rate 108 bpm QRSD Interval 99 ms QT Interval 356 ms QTC Interval 477 ms P [place] 74 degrees QRS [place] -22 degrees T Wave [place] 154 degrees IN Interval 157 ms CBC auto differential Collection Time: 08/05/24 3:06 AM Result Value Ref Range Auto WBC 6.8 3.6 - 10.7 10*3/uL RBC 4.22 (L) 4.40 - 5.90 10*6/uL Hemoglobin 14.1 13.0 - 18.0 g/dL Hematocrit 42.7 40.0 - 52.0 % MCV 101.2 (H) 77.0 - 99.0 fL MCH 33.4 26.0 - 34.0 pg MCHC 33.0 30.5 - 36.0 % RDW 12.9 11.5 - 15.0 % Platelets 253 140 - 440 10*3/uL MPV 9.7 9.0 - 12.7 fL nRBC 0.0 0.0 - 2.0 /100 WBCs Neutrophils Relative 57.5 38.0 - 82.0 % Lymphocytes Relative 32.2 15.0 - 45.0 % Monocytes Relative 9.5 5.0 - 13.0 % Eosinophils Relative 0.4 0.0 - 6.0 % Basophils Relative 0.3 0.0 - 2.0 % Immature Grans % 0.1 0.0 - 2.0 % Neutrophils Absolute 3.9 1.8 - 7.5 10*3/uL Lymphocytes Absolute 2.2 1.0 - 4.3 10*3/uL Monocytes Absolute 0.7 0.0 - 0.9 10*3/uL Eosinophils Absolute 0.0 0.0 - 0.5 10*3/uL Basophils Absolute 0.0 0.0 - 0.2 10*3/uL Immature Grans Absolute 0.0 <0.1 10*3/uL Basic metabolic panel Collection Time: 08/05/24 3:06 AM Result Value Ref Range SODIUM 133 (L) 136 - 145 mmol/L POTASSIUM 3.6 3.5 - 5.1 mmol/L CHLORIDE 98 98 - 107 mmol/L CARBON DIOXIDE 25 22 - 29 mmol/L UREA NITROGEN 38 (H) 8 - 21 mg/dL CREATININE 1.62 (H) 0.72 - 1.25 mg/dL GLUCOSE 113 (H) 74 - 100 mg/dL CALCIUM 8.9 8.4 - 10.2 mg/dL ANION GAP 10 3 - 13 mmol/L eGFR 52.7 (L) >60.0 mL/min/1.73m*2 NT PRO BNP Collection Time: 08/05/24 3:06 AM Result Value Ref Range NT PRO BNP 17,954 (H) <125 pg/mL Serial Troponin, High Sensitivity Collection Time: 08/05/24 3:06 AM Result Value Ref Range Troponin HS Serial Baseline 22 <=35 ng/L Magnesium Collection Time: 08/05/24 3:06 AM Result Value Ref Range MAGNESIUM 2.0 1.6 - 2.6 mg/dL Hepatic function panel Collection Time: 08/05/24 3:06 AM Result Value Ref Range BILIRUBIN, TOTAL 1.9 (H) <1.2 mg/dL BILIRUBIN, DIRECT 1.0 (H) <0.5 mg/dL ALKALINE PHOSPHATASE 173 (H) 40 - 150 U/L AST (SGOT) 50 (H) <34 U/L ALT 101 (H) <40 U/L ALBUMIN 3.4 (L) 3.5 - 5.0 g/dL TOTAL PROTEIN 6.6 6.4 - 8.3 g/dL ECG 12 lead Collection Time: 08/05/24 7:06 AM Result Value Ref Range Heart Rate 111 bpm QRSD Interval 103 ms QT Interval 367 ms QTC Interval 499 ms P [place] 57 degrees QRS [place] -49 degrees T Wave [place] 114 degrees IN Interval 140 ms Troponin, High Sensitivity, Serial, Second Test Collection Time: 08/05/24 8:15 AM Result Value Ref Range 2h Troponin HS (Serial 2nd Troponin) 19 <=35 ng/L XR chest 2 views Final Result Cardiac enlargement. No convincing acute pulmonary process seen. Report Dictated on Electronically Signed By: Christopher Faria MD Electronically Signed Date/Time: 08/05/2024 3:26 AM EST Final ED Course and MDM: Carlo Medina is a 44 y.o. whose care was signed out to me by the outgoing provider. In brief, patient presented with chest pain, SOB for a few days. Extensive cardiac hx and hx of DVT. He is anticoagulated. Work up completed and noted to be significant for a normal HST and normal delta HST. Mild SCHUYLER with hx of CKD. Chronic transaminitis at baseline. BNP 17,000, which upon review is noted to be his baseline. Chest xray is without acute cardiopulmonary process. Prior to being able to reviewed results with patient and determine disposition he requested that nursing remove his IV and he left without waiting for me. Medications - No data to display I THOMAS Oconnell CNP am the retail store clerk of record. Final Impression 1. SCHUYLER (acute kidney injury) (HCC) 2. Shortness of breath 3. Chest pain, unspecified type DISPOSITION Eloped 08/05/2024 10:02:30 AM (Please note that portions of this note may have been completed with a voice recognition program. Efforts were made to edit the dictations but occasionally words are mis-transcribed.) THOMAS Oconnell CNP [employer] THOMAS Prasad CNP 08/05/24 [address] [employer] Phone: [phone] 552-310602-05-2025 Evaluation + Plan note* Assessment & Plan Note - Sergei Astudillo MD - 08/04/2024 1:57 PM ESTAssociated Problem(s): HFrEF (heart failure with reduced ejection fraction) ([facility]) NYHA Class 2 ACC/AHA Stage C HFrEF, with LVEF 20% (May 2024 echo) Etiology: NICM (Cath May 2024) Previous Therapies Beta-blockade: Carvedilol 25 mg BID ACEi/ARB/ARNI: Losartan 25 mg daily (did not tolerate Entresto) Aldosterone Antagonist: Jorge 12.5 mg daily + KCl Hydralazine/ISDN: none SGLT2i: none -- address at follow ups Diuretic: Lasix 40 mg BID ICD: TBD HRIS ANALYST: TBD Cardiac Rehab: Offer when stable >6 weeks - Euvolemic on exam, BP better controlled -- taking Kcl - Advised and educated on principles of HFrEF management -- including titration of GDMT to max-tolerated doses - Will increase Losartan to 50 mg daily - Increase Jorge to 25 mg daily -- follow up BMP in 1 week --> would like to stop potassium if in normal range/able [facility]02-05-2025 Miscellaneous Notes* Assessment & Plan Note - Sergei Astudillo MD - 08/04/2024 1:57 PM ESTAssociated Problem(s): HFrEF (heart failure with reduced ejection fraction) ([facility]) NYHA Class 2 ACC/AHA Stage C HFrEF, with LVEF 20% (May 2024 echo) Etiology: NICM (Cath May 2024) Previous Therapies Beta-blockade: Carvedilol 25 mg BID ACEi/ARB/ARNI: Losartan 25 mg daily (did not tolerate Entresto) Aldosterone Antagonist: Sage 12.5 mg daily + KCl Hydralazine/ISDN: none SGLT2i: none -- address at follow ups Diuretic: Lasix 40 mg BID ICD: TBD HRIS ANALYST: TBD Cardiac Rehab: Offer when stable >6 weeks - Euvolemic on exam, BP better controlled -- taking Kcl - Advised and educated on principles of HFrEF management -- including titration of GDMT to max-tolerated doses - Will increase Losartan to 50 mg daily - Increase Jorge to 25 mg daily -- follow up BMP in 1 week --> would like to stop potassium if in normal range/able * Assessment & Plan Note - Sergei Astudillo MD - 08/04/2024 1:54 PM EST Associated Problem(s): Essential hypertension Better controlled today See #1 GDMT * Assessment & Plan Note - Sergei Astudillo MD - 08/04/2024 1:54 PM EST Associated Problem(s): Acute deep vein thrombosis (DVT) of lower extremity (HCC) BL DVT noted on US on 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 Unprovoked at that time documented in this [facility]02-05-2025 Evaluation + Plan note* Assessment & Plan Note - Sergei Astudillo MD - 08/04/2024 1:54 PM EST Associated Problem(s): Essential hypertension Better controlled today See #1 GDMT [id number] Evaluation + Plan note* Assessment & Plan Note - Sergei Astudillo MD - 08/04/2024 1:54 PM ESTAssociated Problem(s): Acute deep vein thrombosis (DVT) of lower extremity (HCC) BL DVT noted on US on 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 Unprovoked at that time [id number] History of Present illness Narrative* Sergei Astudillo MD - 08/04/2024 10:15 AM EST Images from the original note were not included. [facility] [address] [address] Dept: [phone] Dept Loc: [phone] Visit type: Established patient Reason for Visit: New Patient (Referred by Dr Myles), Congestive Heart Failure (Echo pending 08/30/24), and Hospital Follow-up (6 admission since Jan 2024) Assessment and Plan 1. HFrEF (heart failure with reduced ejection fraction) (HCC) Assessment & Plan: NYHA Class 2 ACC/AHA Stage C HFrEF, with LVEF 20% (May 2024 echo) Etiology: NICM (Cath May 2024) Previous Therapies Beta-blockade: Carvedilol 25 mg BID ACEi/ARB/ARNI: Losartan 25 mg daily (did not tolerate Entresto) Aldosterone Antagonist: Sage 12.5 mg daily + KCl Hydralazine/ISDN: none SGLT2i: none -- address at follow ups Diuretic: Lasix 40 mg BID ICD: TBD HRIS ANALYST: TBD Cardiac Rehab: Offer when stable >6 weeks - Euvolemic on exam, BP better controlled -- taking Kcl - Advised and educated on principles of HFrEF management -- including titration of GDMT to max-tolerated doses - Will increase Losartan to 50 mg daily - Increase Jorge to 25 mg daily -- follow up BMP in 1 week --> would like to stop potassium if in normal range/able Orders: - spironolactone (Aldactone) 25 MG tablet; Take 1 tablet (25 mg) by mouth daily., Starting Fri08/04/2024, Until Benita 08/04/2025, Normal - losartan (Cozaar) 50 MG tablet; Take 1 tablet (50 mg) by mouth daily., Starting Fri08/04/2024, Until Fri08/04/2025, Normal - Basic metabolic panel - Basic metabolic panel 2. Essential hypertension Assessment & Plan: Better controlled today See #1 GDMT 3. Acute deep vein thrombosis (DVT) of other specified vein of both lower extremities (HCC) Assessment & Plan: BL DVT noted on US on 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 Unprovoked at that time Follow up in about 2 weeks (around 08/18/2024) for new HF ISAAC in 2 weeks . Subjective HPI 44 yo M who I met briefly in March 2024 with acute HFrEF. He has NICM/HFrEF (LVEF ~20%). No clearetiology, but HTN may be suspected. He has had several hospital stays in late 2023 -- the consistency in the admissions seems to be related to the patient terminating treatment earlier (leaving the hospital), questionable adherence/literacy of this medical problem. He feels well today. In fact so well that he is hesitant to change meds. He denies any LE edema, orthopnea, or PND. Denies any dizziness or syncope. Denies palpitations. Review of Systems Allergies Allergen Reactions Torsemide Nausea And Vomiting Reports did not tolerate, refuses to take again Entresto [Sacubitril-Valsartan] Nausea And Vomiting Current Outpatient Medications Medication Instructions carvedilol (COREG) 25 mg, Oral, 2 times daily with meals cholecalciferol (VITAMIN D-3) 4,000 Units, Oral, Daily Eliquis 5 mg, Oral, 2 times daily furosemide (LASIX) 40 mg, Oral, 2 times daily losartan (COZAAR) 50 mg, Oral, Daily magnesium oxide (MAG-OX) 400 mg, Oral, Daily potassium chloride CR (Klor-Con M20) 20 MEQ ER tablet 40 mEq, Oral, Daily, Do not crush or chew. sodium bicarbonate 1,300 mg, Oral, 2 times daily spironolactone (ALDACTONE) 25 mg, Oral, Daily Past Medical History: Diagnosis Date Acute HFrEF (heart failure with reduced ejection fraction) ([facility]) 06/13/2024 Acute kidney injury superimposed on CKD ([facility]) ([facility]) 07/03/2024 At risk for obstructive sleep apnea 05/31/2024 o/p sleep study recommended during admission CHF (congestive heart failure) ([facility]) CKD (chronic kidney disease) HFrEF (heart failure with reduced ejection fraction) ([facility]) 04/28/2024 History of left bundle branch block (LBBB) 06/19/2024 Hypercholesteremia Hypertension Noncompliance 06/19/2024 NSTEMI (non-ST elevated myocardial infarction) ([facility]) 07/11/2024 Pulmonary embolism ([facility]) Pulmonary vascular congestion 04/28/2024 Sinus tachycardia 06/19/2024 Social History Tobacco Use Smoking status: Never Passive exposure: Never Smokeless tobacco: Never Substance Use Topics Alcohol use: Never Past Surgical History: Procedure Laterality Date CARDIAC CATHETERIZATION N/A 06/17/2024 Performed by Akilah Diaz MD at [facility] 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 Family History Problem Relation Name Age of Onset Heart failure Father unsure of hx Heart disease Father unsure of hx Heart disease Brother unsure of hx Objective BP 132/82 (BP Location: Left arm, Patient Position: Sitting, BP Cuff Size: Adult) Pulse 79 Ht 6' 1 (1.854 m) Wt 167 lb (75.8 kg) SpO2 97% BMI 22.03 kg/m Constitutional: [see vitals above] patient with no acute distress, resting comfortably Neck: No JVD, JVP ~5 cmH2O Respiratory: Normal effort, lungs CTAB CV: Normal rate, regular rhythm, normal S1/S2, no S3/S4, no murmurs, no edema in BL LE Data Reviewed and Summarized Review of tests/labs done/ordered within my specialty: EKG in office: Review of tests/labs done/ordered outside my specialty: Independent interpretation of tests: Sergei Astudillo MD Department of Cardiovascular Disease, Division of Heart Failure [facility] [place] documented in this [facility]02-05-2025 Instructions* Patient Instructions* Sergei Astudillo MD - 08/04/2024 10:15 AM EST Check labs today to see where we are at with potassium and kidney function etc. Tomorrow -- increase Spironolactone to 25 mg daily , increase Losartan to 50 mg daily I'll let you know the plan for your potassium supplement --> repeat blood work in 1 week See us in ~ 2 weeks documented in this [facility]02-04-2025 Telephone encounter Note* Telephone Encounter - Kaitlin Gonzalez LPN - 08/03/2024 9:44 AM EST Unable to contact patient X2 [id number] Miscellaneous Notes* Telephone Encounter - Kaitlin Gonzalez LPN - 08/03/2024 9:44 AM EST Unable to contact patient X2 * Telephone Encounter - Kaitlin Gonzalez LPN - 08/02/2024 9:55 AM EST S: Patient admitted to: [facility] 07/23/24 B: Discharged on : 07/30/24 A: Hospital follow up call initiated to discuss any medication changes, follow up appointments and discharge instructions: Acute kidney injury R: No contact x 1 at : [phone] documented in this [facility]02-04-2025 Telephone encounter Note* Telephone Encounter - Dia Gaitan RN - 08/03/2024 9:22 AM EST booster pump oiler: Pt's sister, Nanci, returned call. Said better to attempt to call pt in the afternoon as he usually sleeps in. Reminded Nanci of pt's upcoming appt tomorrow with Dr. Astudillo and requested she reinforce importance of attendance. 08/04: Pt came to [facility] appt. [id number] Miscellaneous Notes* Telephone Encounter - Dia Gaitan RN - 08/03/2024 9:22 AM EST booster pump oiler: Pt's sister, Nanci, returned call. Said better to attempt to call pt in the afternoon as he usually sleeps in. Reminded Nanci of pt's upcoming appt tomorrow with Dr. Astudillo and requested she reinforce importance of attendance. 08/04: Pt came to [facility] appt. documented in this [facility]02-03-2025 Telephone encounter Note* Telephone Encounter - Dia Gaitan RN - 08/02/2024 12:03 PM EST booster pump oiler: Noted 2 unsuccessful attempts to contact pt today for follow up phone calls by and care partner manager. This RN attempted to contact pt and there was no answer. Left HIPAA compliant requesting call back. 08/03: Again unable to reach pt by phone. LM containing appt reminder to see Dr. Astudillo on 08/04 at 10:15AM. Attempted pt's emergency contacts, Kaitlin and Indira- no answer on either number and no identifying factors on VM. No message left. No further attempts to be made. [id number] Miscellaneous Notes* Telephone Encounter - Dia Gaitan RN - 08/02/2024 12:03 PM EST HF booster pump oiler: Noted 2 unsuccessful attempts to contact pt today for follow up phone calls by and care partner manager. This RN attempted to contact pt and there was no answer. Left HIPAA compliant VM requesting call back. 08/03: Again unable to reach pt by phone. LM containing appt reminder to see Dr. Astudillo on 08/04 at 10:15AM. Attempted pt's emergency contacts, Babak- no answer on either number and no identifying factors on VM. No message left. No further attempts to be made. documented in this [facility] [id number] NoteChart reviewed. Attempted to contact patient for transitions post-discharge outreach. No answer, left to please return my call. Will follow up again. [facility]02-03-2025 Telephone encounter Note* Telephone Encounter - Kaitlin Gonzalez LPN - 08/02/2024 9:55 AM EST S: Patient admitted to: [facility] 07/23/24 B: Discharged on : 07/30/24 A: Hospital follow up call initiated to discuss any medication changes, follow up appointments and discharge instructions: Acute kidney injury R: No contact x 1 at : [phone] [id number] History of Present illness Narrative* Maritza Linn APRN - VIKKI - 07/30/2024 1:19 PM EST [facility] Progress Note Subjective/ 44 y.o. year old male who we are seeing in consultation for SCHUYLER/CKD. Resting in bed Eating lunch Doesn't appear to like to be disturbed Affect is very dismissive Denies SOB Edema much improved Refusing magnesium tabs and or IVPB Appetite fair No other new issues at this time ROS done and negative unless mentioned as above No change in PFSH All data labs/interval notes and overnight issues are reviewed Objective/ Vitals: 07/30/24 0500 07/30/24 0837 07/30/24 0840 07/30/24 1126 BP: 112/82 112/82 115/84 BP Location: Left arm Patient Position: Lying Pulse: 101 101 56 Resp: 16 18 Temp: 36.4 C (97.5 F) 36.1 C (97 F) TempSrc: Temporal Temporal SpO2: 97% 97% Weight: 74 kg (163 lb 3.2 oz) Intake/Output Summary (Last 24 hours) at 07/30/2024 1319 Last data filed at 07/29/2024 1938 Gross per 24 hour Intake -- Output 1000 ml Net -1000 ml apixaban, 5 mg, Oral, BID carvedilol, 25 mg, Oral, BID WC cholecalciferol, 4,000 Units, Oral, Daily losartan, 25 mg, Oral, Daily magnesium oxide, 400 mg, Oral, Daily potassium chloride CR, 40 mEq, Oral, TID sodium bicarbonate, 1,300 mg, Oral, BID spironolactone, 12.5 mg, Oral, Daily PRN medications: acetaminophen OR acetaminophen, ondansetron ODT OR ondansetron, polyethylene glycol (PEG) 3350 Constitutional: Alert, awake Eyes: No icterus, no pallor HEENT: no pallor/cyanosis or icterus Cardiovascular: S1, S2 without m/r/g Respiratory: CTA B without w/r/r GI: +bs, soft, nt : agustin -ve Ext: trace BLE edema Neck: supple, no thyroid enlargement, no JVD elevation Skin: warm, moist, no rashes Data: Results from last 7 days Lab Units 07/30/24 0539 07/29/24 0324 07/28/24 0603 SODIUM mmol/L 140 136 140 POTASSIUM mmol/L 2.8* 3.3* 3.5 CHLORIDE mmol/L 108* 103 99 CO2 mmol/L 24 25 31* BUN mg/dL 30* 28* 29* CREATININE mg/dL 1.18 1.36* 1.66* GLUCOSE mg/dL 92 103* 97 CALCIUM mg/dL 6.4* 6.9* 8.3* Results from last 7 days Lab Units 07/29/24 0324 07/28/24 0603 07/27/24 0103 WBC AUTO 10*3/uL 5.9 5.6 5.7 HEMOGLOBIN g/dL 12.5* 14.3 13.8 HEMATOCRIT % 38.9* 44.8 42.4 PLATELETS 10*3/uL 202 225 241 Assessment/Plan SCHUYLER/ATN, possibly 2/2 hypoperfusion injury vs CRS (N17.0) Acute on chronic HFrEF exacerbation (I50.23) Severe hypokalemia (E87.6) Noncompliance with medication (Z91.1) Severe hypomagnesemia CKD3b RECOMMENDATIONS: -Cr approaching baseline levels -Follow BNP for guided diuresis 26,294-->20,238-->18,824-->18,561-->17,152 -->13,727-->12,744 -He was refusing entresto but is agreeable to losartan and was started by cardiology 07/29 -ARB + MRA should help to prevent worsening hypokalemia, although until mag is corrected, K will not stabilize -He continues to refuse magnesium supplements in any form -He is thoroughly educated regarding risks of hypomagnesemia and hypokalemia and the effects these electrolytes deficiencies have on his heart including but not limited to arrhythmia, palpitations and even cardiac arrest and he stated his understanding -Serum Ca is also low and he is opposed to supplementing this as well -He does not want torsemide outpatient as it made him sick, recommend lasix 40 mg po BID + spironolactone 25 mg po daily for diuresis -Low Na diet -Needs daily standing weights and strict I&Os -Counseled for need of daily weights in the outpatient setting -Avoid nephrotoxins and contrast dye -Dose all meds per current eGFR -Complex MDM -All other care per primary team, d/w Dr Galan cardiology -Ok for dc from renal standpoint as he continues to refuse vital aspects of his care -Very high risk of mortality and decompensation due to noncompliance with medications/labs. -We will follow closely with you Thank you for the consult and the opportunity to participate in the care of this patient. Please donot hesitate to contact us with any questions or concerns. Maritza Linn APRN, WHITING MACHINE OPERATOR [facility], [facility] [phone] Cosigned by Anand Mccullough MD at 07/30/2024 1:47 PM EST Associated attestation - Anand Mccullough MD - 07/30/2024 1:47 PM EST I have reviewed the above assessment and plan with the DOUGHNUT MACHINE OPERATOR HELPER. I agree with above note. Cr improving. Change to PO diuresis. High potential for decompensation. D/w cardiology Replete K pRN. * Fawad Galan MD - 07/30/2024 11:34 AM EST CARDIOLOGY CONSULTATION Assessment/Plan: Cardiovascular Diagnoses # Acute on chronic heart failure with reduced ejection fraction: NYHA 3. EF 20%. NICM. He has previously declined ICD; this is worth revisiting. # Hypokalemia, # hypomagnesemia # Primary hypertension # SCHUYLER on CKD: Resolved # Recent DVT Recommendations: - Recommended repeat potassium supplement, and magnesium, nephrology team visited and provided samerecommendation, and at minimum recheck K prior to discharge; he declined. Discussed at length the risk of cardiac arrhythmia, including arrhythmia that could cause his heart to stop; he is declining any further inpatient supplementation. He has had rare PVCs on his monitor, I printed this out and showed him. He is adamant about leaving today. - Will discharge on potassium supplementation and have a chemistry panel pre- outpatient visit - Follow-up visit with Dr. Francisco loomis for 08/06, HF navigator working with patient GF who drives to appt to confirm attendance - Discharge HF regimen is carvedilol 25mg BID, losartan 25mg, spironolactone 12.5mg - Discharge diuresis is 40mg PO lasix twice daily; we discussed at length reasons to increase this dose, specifically with weight gain, and dyspnea. Educated about weighing self; he has all the rightequipment and home and knows to either increase lasix or contact the cardiology office - Ideally can start on SGLT2 from outpatient visit - Should remain on apixaban given history of DVT Interval Events Carlo Medina was seen in follow-up. He has been up ambulating. He is feeling much better and swelling gone. The majority of our conversation was discussing discharge recommendations, watching volume status, and the importance of follow-up. Discussed recommendations to repeat potassium supplement, repeat potassium level, and go home. He has declined this. Physical Exam: VS: Vitals: 07/30/24 0500 07/30/24 0837 07/30/24 0840 07/30/24 1126 BP: 112/82 112/82 115/84 BP Location: Left arm Patient Position: Lying Pulse: 101 101 56 Resp: 16 18 Temp: 36.4 C (97.5 F) 36.1 C (97 F) TempSrc: Temporal Temporal SpO2: 97% 97% Weight: 163 lb 3.2 oz (74 kg) Gen: Comfortable, conversant, room air Neck: No JVP CV: Regular, no murmurs Pulm: Clear Abd: Soft, nontender Neuro: Grossly nonfocal Extrem: Trace edema confined to feet alone. Strong pulses bilaterally. Fawad Galan MD Cardiology [facility] [place] 11:34 AM 07/30/24 * Michelle Werner - 07/30/2024 8:46 AM EST Nutrition update completed. Chart reviewed. Patient continues as a level 1. * Fawad Galan MD - 07/29/2024 12:25 PM EST CARDIOLOGY CONSULTATION Assessment/Plan: Cardiovascular Diagnoses # Acute on chronic heart failure with reduced ejection fraction: NYHA 3. EF 20%. NICM. Very reassured by continued improvement in renal function. Home GDMT: Carvedilol, Losartan, Spironolactone. Reportedly, he has declined ICD and he has not been prescribed SLGT2 to simplify his regimen. My assessment is that he has capacity and is competent to make decisions for himself. My impressionis that our challenges getting him to comply with our recommendations is multifactorial; I am hopeful that by simplifying his medication regimen, we will be able to break the cycle of readmissions, though this will be a challenge. We discussed this at length today; he is able to discuss his medications and what they are used for. We talked over the phone with his girlfriend, Loco, who is agreeableto drive him to clinic visits at [facility] for advanced heart failure care and evaluation. She is the only courtesy bus driver as Mr. Medina doesn't drive, and she works nights. This is a barrier to his care, but she states she is willing to take him to visits. He will remain high risk for HF readmission. # Hypokalemia # Primary hypertension # SCHUYLER on CKD # Recent DVT Recommendations: - Replete K (ordered) - Plan to continue IV diuresis today, discussed with patient, he is in agreement, IV 40mg given at 0900, will reschedule second dose for afternoon as he justifiably doesn't like getting lasix at 9pm - Losartan 25mg started today, will observe pressure, ideally will help hypokalemia - Spironolactone ordered to start 07/30 - He is planning to follow-up at [facility] after conversation with him and his girlfriend, Loco, over the phone; she is agreeable to drive him, requests product communications manager visits if possible as she works nights - I have discussed his care with Dr. Coppola at [facility], and we will plan to get him set up for an afterhospital visit in his clinic with his team - Discharge dose of furosemide should be 40mg PO BID - Continue apixaban, carvedilol - Previuosly declined ICD - Remove metolazone from home medications list Interval Events Carlo Medina is seen today in follow-up. I discussed the recommendation that he establish in advanced HF clinic at [facility] with him and his girlfriend, Loco, over the phone today. They are in agreement with this plan. He is agreeable to stay, he is feeling better, and would be willing to stay for one more day of IV lasix. We will plan to discharge tomorrow on oral diuresis. Physical Exam: VS: Vitals: 07/28/24 1941 07/28/24 2334 07/29/24 0331 07/29/24 0735 BP: 102/75 94/73 97/62 108/79 BP Location: Left arm Left arm Right arm Left arm Patient Position: Lying Lying Lying Lying Pulse: 105 101 56 103 Resp: 18 18 18 18 Temp: 36.4 C (97.6 F) 36.4 C (97.6 F) 36.3 C (97.4 F) 36.2 C (97.2 F) TempSrc: Temporal Temporal Temporal Temporal SpO2: 98% 99% 95% 98% Weight: Gen: Comfortable, conversant Neck: No JVP CV: Regular Pulm: Clear Abd: Soft Neuro: Nonfocal Extrem: Trace edema bilaterally Fawad Galan MD Cardiology [facility] [place] 12:25 PM 07/29/24 * Lilibeth Huber, CURRICULUM DIRECTOR - WHITING MACHINE OPERATOR - 07/29/2024 6:33 AM EST Hospitalist Progress Note 07/29/2024 Subjective: Admit Date: 07/23/2024 PCP: No primary care provider on file. Room#: [id number] A BRIEF HOSPITAL COURSE: Carlo is a 44 y.o. male with past medical history significant for heart failure with reduced ejection fraction, chronic kidney disease, left bundle branch block, hypertension, noncompliance behavior, history of non-ST elevation ND who presented to the emergency room with complaint of swelling in the legs and shortness of breath along with abnormal labs. Patient symptoms have been going on for last couple days and has been progressively getting worse. Patient got lab work done as an outpatientper cardiology recommendation. Patient was advised by them to double up on his diuretics as the swelling was persistent in the legs. Patient had gained 10 pounds since last admission about 1 week ago. Patient received a call from the cardiology office stating the renal function is getting worse. Patient continued to have worsening swelling and shortness of breath and was advised to come to the emergency room for further evaluation 07/25/24 Per cardiology continue 80mg IV Lasix BID and Metolazone 5 mg daily, strict I&Os, has life vest at home, not wearing it, refusing lab draws, meds, non compliance, palliative consulted, 5 admits in 07/28-He declined half of his morning dose of IV lasix as he didn't think he needed the full dose. Iindicated I agreed to some extent that his volume status has improved and that this suggests he is close to discharge, which will likely be tomorrow. He indicated he was OK with this. We discussed the issues with his kidneys but the encouraging finding that they do seem to be improving with diuresis. Mr Medina also stated that he would not take entresto outpatient due to concerns for upset stomach.He would be agreeable to losartan, I stressed the importance of a medication in this class. Interval History: No overnight issues. Educated patient about the importance of IV magnesium replacement. Magnesium level is 1.4. He is adamant that he will not agree to IV replacement and wants a pill. Explained thatthis will not support his levels in a timely manner and low magnesium can contribute to arrhythmia.He refuses. Case and plan discussed with patient and bedside nurse. All questions answered. Adult diet Regular; Low Sodium (2 gm); 1800 ml 24HR INTAKE/OUTPUT: Intake/Output Summary (Last 24 hours) at 07/29/2024 0633 Last data filed at 07/28/20242022 Gross per 24 hour Intake 480 ml Output 1400 ml Net -920 ml Past Medical History: Past Medical History: Diagnosis Date Acute HFrEF (heart failure with reduced ejection fraction) ([facility]) 06/13/2024 Acute kidney injury superimposed on CKD ([facility]) ([facility]) 07/03/2024 At risk for obstructive sleep apnea 05/31/2024 o/p sleep study recommended during admission CHF (congestive heart failure) ([facility]) CKD (chronic kidney disease) HFrEF (heart failure with reduced ejection fraction) ([facility]) 04/28/2024 History of left bundle branch block (LBBB) 06/19/2024 Hypercholesteremia Hypertension Noncompliance 06/19/2024 NSTEMI (non-ST elevated myocardial infarction) ([facility]) 07/11/2024 Pulmonary vascular congestion 04/28/2024 Sinus tachycardia 06/19/2024 LABS: CBC: Recent Labs 07/27/2410207/28/24 0607/29/24 032 WBC 5.7 5.6 5.9 RBC 4.16* 4.33* 3.73* HGB 13.8 14.3 12.5* HCT 42.4 44.8 38.9* MCV 101.9* 103.5* 104.3* RDW 13.3 13.2 13.0 PLT 241 225 202 BMP: Recent Labs 07/27/2410207/28/24 0607/29/24 032 NA 140 140 136 K 3.6 3.5 3.3* CL 102 99 103 CO2 24 31* 25 BUN 35* 29* 28* CREATININE 1.84* 1.66* 1.36* GLUCOSE 95 97 103* CALCIUM 8.4 8.3* 6.9* ANIONGAP 14* 10 8 LIVER PROFILE: Recent Labs 07/27/2410207/28/2460207/29/24 032 AST 31 26 22 ALT 60* 49* 36 BILITOT 1.3* 1.6* 1.2* ALKPHOS 175* 153* 125 PROT 6.3* 6.1* 5.2* PT/INR: No results for input(s): PROTIME, INR in the last 72 hours. CARDIAC ENZYMES: No results for input(s): TROPONINI in the last 72 hours. Procalcitonin: No results found for: PROCAL COVID-19 PCR: No results for input(s): COVID19 in the last 72 hours. Objective: Vitals: BP 97/62 (BP Location: Right arm, Patient Position: Lying) Pulse 56 Temp 36.3 C (97.4 F) (Temporal) Resp 18 Wt 167 lb (75.8 kg) SpO2 95% BMI 22.03 kg/m Pulse Ox: SpO2 Av.8 % Min: 95 % Max: 99 % Supplemental O2: Physical Exam Vitals and nursing note reviewed. Constitutional: Appearance: Normal appearance. He is normal weight. HENT: Head: Normocephalic and atraumatic. Nose: Nose normal. Mouth/Throat: Mouth: Mucous membranes are moist. Eyes: Extraocular Movements: Extraocular movements intact. Conjunctiva/sclera: Conjunctivae normal. Pupils: Pupils are equal, round, and reactive to light. Cardiovascular: Rate and Rhythm: Normal rate and regular rhythm. Pulmonary: Effort: Pulmonary effort is normal. Breath sounds: Normal breath sounds. Abdominal: General: Bowel sounds are normal. Palpations: Abdomen is soft. Musculoskeletal: General: Normal range of motion. Cervical back: Normal range of motion. Right lower leg: Edema present. Left lower leg: Edema present. Skin: General: Skin is warm and dry. Neurological: General: No focal deficit present. Mental Status: He is alert and oriented to person, place, and time. Psychiatric: Mood and Affect: Mood normal. Behavior: Behavior normal. Thought Content: Thought content normal. Comments: Poor insight to medical conditions and medications Medications: Scheduled PRN apixaban, 5 mg, Oral, BID carvedilol, 25 mg, Oral, BID WC cholecalciferol, 4,000 Units, Oral, Daily furosemide, 80 mg, IntraVENous, BID losartan, 25 mg, Oral, Daily magnesium sulfate, 2,000 mg, IntraVENous, Once metOLazone, 5 mg, Oral, Daily sodium bicarbonate, 1,300 mg, Oral, BID PRN medications: acetaminophen OR acetaminophen, ondansetron ODT OR ondansetron, polyethylene glycol (PEG) 3350 Continuous Assessment Data: (CAT1) Reviewed 3 or more notes from different specialty or health system (each=1). (CAT1) Reviewed 3 or more labs/studies ordered by another provider not previously counted (each=1, panels count as 1). (CAT1) Ordered 3 or more new labs and/or studies (each=1, panels count as 1). (LOW: 2x CAT1 or independent historian MOD: 3x CAT1 or 1x CAT3 EXTENSIVE: 3x CAT1 and 1x CAT3) Acute, acute on chronic, unstable/uncontrolled chronic problems/diagnoses: Acute/chronic heart failure - EF 20%, cardiology following , 40 mg IV lasix BID, coreg 25 mg BID SCHUYLER on CKD- nephrology following 3. Non sustained VT- refuses ICD, life vest, refuses ICD evaluation 4. Hypomagnesemia - refuses IV replacement , mag level 1.4 Stable chronic problems affecting care, new non-acute diagnoses: DVT LE- remains on Eliquis LBBB CAD HPL Hx NSTEMI Non compliance Plan As a result of the above findings & factors, the following mgmt was pursued: - - am labs, replace lytes prn - PT/OT/CM/SW - delirium precautions: increase activity and limit nighttime disturbances - DVT prophylaxis: encourage ambulation and already anticoagulated Complexity: Chronic illness with severe exacerbation, progression, or side effect of tx (HIGH). Risk: Prescription drug/IVF/colloid was initiated, discontinued, adjusted; or reviewed with decision to maintain current orders (MOD). Low risk diagnostic testing or treatment (LOW). Advance Directive: Full Code Anticipated Discharge - Date - 07/30? - Location - Home - Pending the following - cardiology and nephrology clearance for discharge Total time spent (which include face to face and non face to face encounters) : minutes Toxic drug monitoring/narrow therapeutic index drug monitoring : # Drug name : # Route administered : # Method of monitoring : Extended Emergency Contact Information Primary Emergency Contact: KurtKaitlin Mobile Relation: Significant Other Secondary Emergency Contact: Indira Medina Mobile Relation: Sister Lilibeth Umaña THOMAS Huber CNP Division of Hospitalist Medicine [facility] * Fawad Galan MD - 07/28/2024 3:31 PM EST CARDIOLOGY CONSULTATION Assessment/Plan: Cardiovascular Diagnoses # Acute on chronic heart failure with reduced ejection fraction: NYHA 3. EF 20%. NICM. # Primary hypertension # SCHUYLER on CKD # Recent dVT Recommendations: - Transition to PO diuresis on 07/29 and plan for discharge; would recommend 40mg of PO lasix BID - Discussed with patient strongly encouraged that he follow-up in clinic at [facility] for advanced HF given his low EF - Previuosly declined ICD - Will plan to discharge on losartan 25mg; he states he will not be taking the entresto at discharge - Continue apixaban, carvedilol - Plan to resume spironolactone at discharge - Will consider conversatin regarding location of his follow-up care; if he is willing to consider [facility] for follow-ups, I may discuss with HF navigator if a [employer] arranged ride is possible given the possible financial barrier for him (GF is only courtesy bus driver, challenge paying for gas) and his very high 30-day readmission risk Interval Events Carlo Medina is seen in follow-up. Today was our first day meeting each other. He declined half of his morning dose of IV lasix as he didn't think he needed the full dose. I indicated I agreed to some extent that his volume status has improved and that this suggests he is close to discharge, which will likely be tomorrow. He indicated he was OK with this. We discussed the issues with his kidneys but the encouraging finding that they do seem to be improving with diuresis. Mr Medina also stated that he would not take entresto outpatient due to concerns for upset stomach.He would be agreeable to losartan, I stressed the importance of a medication in this class. We also discussed that he should plan to follow-up at [facility], and he indicated his only concern with this was getting a ride there and that he didn't want his girlfriend to have to pay for gas to get him up there. This seems to be a financial barrier. I offered to discuss this on the phone with his girlfriend via speakerphone, he declined that at the time of our discussion, but allowed that we couldrevisit that later. The remainder of our conversation we discussed his fanhood of the [employer]. Physical Exam: VS: Vitals: 07/28/24 0539 07/28/24 0828 07/28/24 1057 07/28/24 1517 BP: 111/89 107/79 100/74 Pulse: 105 99 108 Resp: 17 16 16 Temp: 36.3 C (97.3 F) 37.2 C (98.9 F) 36.9 C (98.5 F) TempSrc: Temporal Temporal Temporal SpO2: 98% 99% 98% Weight: 167 lb (75.8 kg) Gen: Comfortable, conversant, recumbent, on room air Neck: No JVP CV: Regular, no murmurs Pulm: Clear, Abd: Soft/nontender Neuro: Grossly nonfocal Extrem: 1+ edema bilateral lower extremities Fawad Galan MD Cardiology [facility] [place] 3:31 PM 07/28/24 * THOMAS Carlos CNP - 07/28/2024 12:56 PM EST Non billable note I attest and agree with Nicole Cross NP Student's assessment, progress note and plan of care for today * Maritza Linn, THOMAS Xiao CNP - 07/28/2024 12:07 PM EST [facility] Progress Note Subjective/ 44 y.o. year old male who we are seeing in consultation for SCHUYLER/CKD. Resting in bed Feels ok Tired of talking to consultants Denies SOB Edema improving Doesn't want to be discharged until all of his swelling is completely gone Doesn't like urinating this much (on IV lasix) Appetite fair No other new issues at this time ROS done and negative unless mentioned as above No change in PFSH All data labs/interval notes and overnight issues are reviewed Objective/ Vitals: 07/28/24 0235 07/28/24 0539 07/28/24 0828 07/28/24 1057 BP: 111/89 107/79 BP Location: Patient Position: Pulse: 107 105 99 Resp: 17 16 Temp: 36.3 C (97.3 F) 37.2 C (98.9 F) TempSrc: Temporal Temporal SpO2: 100% 98% 99% Weight: 75.8 kg (167 lb) Intake/Output Summary (Last 24 hours) at 07/28/2024 1207 Last data filed at 07/28/2024 0900 Gross per 24 hour Intake 360 ml Output 3500 ml Net -3140 ml apixaban, 5 mg, Oral, BID carvedilol, 25 mg, Oral, BID cholecalciferol, 4,000 Units, Oral, Daily furosemide, 80 mg, IntraVENous, BID magnesium sulfate, 2,000 mg, IntraVENous, Once metOLazone, 5 mg, Oral, Daily [Held by provider] sacubitril-valsartan, 1 tablet, Oral, BID sodium bicarbonate, 1,300 mg, Oral, BID PRN medications: acetaminophen OR acetaminophen, ondansetron ODT OR ondansetron, polyethylene glycol (PEG) 3350 Constitutional: Alert, awake Eyes: No icterus, no pallor HEENT: no pallor/cyanosis or icterus Cardiovascular: S1, S2 without m/r/g Respiratory: CTA B without w/r/r GI: +bs, soft, nt : agustin -ve Ext: trace to 1+ BLE edema Neck: supple, no thyroid enlargement, no JVD elevation Skin: warm, moist, no rashes Data: Results from last 7 days Lab Units 07/28/24 0603 07/27/24 0103 07/26/24 0907 SODIUM mmol/L 140 140 138 POTASSIUM mmol/L 3.5 3.6 3.4* CHLORIDE mmol/L 99 102 103 CO2 mmol/L 31* 24 23 BUN mg/dL 29* 35* 40* CREATININE mg/dL 1.66* 1.84* 2.14* GLUCOSE mg/dL 97 95 114* CALCIUM mg/dL 8.3* 8.4 8.5 Results from last 7 days Lab Units 07/28/24 0603 07/27/24 0103 07/26/24 0907 WBC AUTO 10*3/uL 5.6 5.7 5.5 HEMOGLOBIN g/dL 14.3 13.8 14.1 HEMATOCRIT % 44.8 42.4 43.0 PLATELETS 10*3/uL 225 241 240 Assessment/Plan SCHUYLER/ATN, possibly 2/2 hypoperfusion injury vs CRS (N17.0) Acute on chronic HFrEF exacerbation (I50.23) Hypokalemia (E87.6) Noncompliance with medication (Z91.1) CKD3b RECOMMENDATIONS: -Cr improving with diuresis, remains above baseline -C/w IV lasix through today 07/28 since renal function is tolerating -Plan for transition to po diuresis tomorrow 07/29 -Follow BNP for guided diuresis 26,294-->20,238-->18,824-->18,561 -Continue to hold Entresto and Spironolactone for now, can resume upon dc -He does not want torsemide outpatient as it made him sick, will recommend lasix 40 mg po BID + spironolactone 25 mg po daily + metolazone 5 mg po daily -K improved, trend lytes and replace prn -Low Na diet -Needs daily standing weights and strict I&Os -Counseled for need of daily weights in the outpatient setting -Lucrecia wraps to BLE to help mobilize fluid -Avoid nephrotoxins and contrast dye -Dose all meds per current eGFR -Anticoagulation per primary team -Complex MDM -High risk for progression to TANK ERECTOR dependence given history of noncompliance -High risk of decompensation with noncompliance with medications/labs. -We will follow closely with you Thank you for the consult and the opportunity to participate in the care of this patient. Please donot hesitate to contact us with any questions or concerns. Maritza Linn APRN, WHITING MACHINE OPERATOR [facility], [facility] [phone] Cosigned by Anand Mccullough MD at 07/28/2024 4:00 PM EST Associated attestation - Anand Mccullough MD - 07/28/2024 4:00 PM EST I have reviewed the above assessment and plan with the DOUGHNUT MACHINE OPERATOR HELPER. I agree with above note. Cr improving. C/w IV lasix. Replete K pRN. * Maritza Linn APRN - VIKKI - 07/27/2024 1:31 PM EST [facility] Progress Note Subjective/ 44 y.o. year old male who we are seeing in consultation for SCHUYLER/CKD. Resting in bed Feels ok Denies SOB Edema improving Doesn't want to be discharged until all of his swelling is completely gone Doesn't like urinating this much (on IV lasix) Appetite fair No other new issues at this time ROS done and negative unless mentioned as above No change in PFSH All data labs/interval notes and overnight issues are reviewed Objective/ Vitals: 07/27/24 0024 07/27/24 0428 07/27/24 0831 07/27/24 1146 BP: 121/87 108/78 121/86 114/86 BP Location: Left arm Right arm Patient Position: Lying Lying Pulse: 57 99 105 107 Resp: 18 14 16 17 Temp: 36.6 C (97.9 F) 37.1 C (98.7 F) 36.6 C (97.8 F) 36.6 C (97.8 F) TempSrc: Temporal Temporal Temporal Temporal SpO2: 99% 98% 96% 93% Weight: Intake/Output Summary (Last 24 hours) at 07/27/2024 1332 Last data filed at 07/26/2024 2356 Gross per 24 hour Intake 600 ml Output 2900 ml Net -2300 ml apixaban, 5 mg, Oral, BID carvedilol, 25 mg, Oral, BID WC cholecalciferol, 4,000 Units, Oral, Daily furosemide, 80 mg, IntraVENous, BID metOLazone, 5 mg, Oral, Daily [Held by provider] sacubitril-valsartan, 1 tablet, Oral, BID sodium bicarbonate, 1,300 mg, Oral, BID PRN medications: acetaminophen OR acetaminophen, ondansetron ODT OR ondansetron, polyethylene glycol (PEG) 3350 Constitutional: Alert, awake Eyes: No icterus, no pallor HEENT: no pallor/cyanosis or icterus Cardiovascular: S1, S2 without m/r/g Respiratory: CTA B without w/r/r GI: +bs, soft, nt : agustin -ve Ext: 1+ BLE edema Neck: supple, no thyroid enlargement, no JVD elevation Skin: warm, moist, no rashes Data: Results from last 7 days Lab Units 07/27/24 01007/26/24 0907 07/24/24 0600 SODIUM mmol/L 140 138 138 POTASSIUM mmol/L 3.6 3.4* 4.3 CHLORIDE mmol/L 102 103 108* CO2 mmol/L 24 23 20* BUN mg/dL 35* 40* 38* CREATININE mg/dL 1.84* 2.14* 2.19* GLUCOSE mg/dL 95 114* 108* CALCIUM mg/dL 8.4 8.5 8.5 Results from last 7 days Lab Units 07/27/24 01007/26/24 0907 07/24/24 0600 WBC AUTO 10*3/uL 5.7 5.5 7.4 HEMOGLOBIN g/dL 13.8 14.1 14.4 HEMATOCRIT % 42.4 43.0 45.0 PLATELETS 10*3/uL 241 240 225 Assessment/Plan SCHUYLER/ATN, possibly 2/2 hypoperfusion injury vs CRS (N17.0) Acute on chronic HFrEF exacerbation (I50.23) Hypokalemia (E87.6) Noncompliance with medication (Z91.1) CKD3b RECOMMENDATIONS: -Cr improving with diuresis, remains above baseline -C/w IV lasix through today 07/27 -Plan for transition to po diuresis tomorrow 07/28, d/w Jovanna DOUGHNUT MACHINE OPERATOR HELPER cards -Follow BNP for guided diuresis 26,294-->20,238-->18,824-->18,561 -Continue to hold Entresto and Spironolactone for now -K improved, trend lytes and replace prn -Low Na diet -Needs daily standing weights and strict I&Os -Counseled for need of daily weights in the outpatient setting -Lucrecia wraps to BLE to help mobilize fluid -Avoid nephrotoxins and contrast dye -Dose all meds per current eGFR -Anticoagulation per primary team -Complex MDM -High risk for progression to TANK ERECTOR dependence given history of noncompliance -High risk of decompensation with noncompliance with medications/labs. -We will follow closely with you Thank you for the consult and the opportunity to participate in the care of this patient. Please donot hesitate to contact us with any questions or concerns. Maritza Linn APRN, WHITING MACHINE OPERATOR [facility], [facility] [phone] Cosigned by Anand Mccullough MD at 07/28/2024 3:58 PM EST * Jovanna Christian PA-C - 07/27/2024 12:36 PM EST [facility] [place] [facility] Cardiology /Electrophysiology Progress Note HPI / Interval History: Mr. Carlo Medina, 44 year old male presents to [facility] due to heart failure. He has a history of nonischemic cardiomyopathy with severe biventricular failure, last EF measured 20% per transthoracic echo June 15, 2024. Hx of [facility] heart failure adm due to poor compliance and poor health literacy. He has had extended and multiple discussions about medical Rx. -recently DC from [facility] 07/05, [facility]-DC 07/16, presented to the office 07/21 volume overloaded-in which he admitted he had not been taking most of his meds or diuretics. He has been recommended and has been referred to [facility] heart failure clinic. Recently noted to have increased wt as outpt at [facility] and K+5.8 was subsequently found. He was then readmitted to [facility], and placed on Lasix IV for diuresis. Nephrology has been following to assist. It is noted he had a large volume diuresis of 6400 cc over the last 24 hours. Renal function actually improved with this. I had spoken with Dr. Zhang in the office, who again recommended his follow-up being in the heart failure clinic at [facility]. He wanted him quoted a greater than 50% mortality rate over the next year. I did review this with Mr. Medina, and discussed the need for compliance with medicationson discharge as ordered as well as follow-up in the office. I discussed that his best resource would be with our heart failure clinic. I wanted to talk with his girlfriend Kaitlin, however he told me he will not allow me to call her. He tells me that they make other decisions together, and I told him that I thought it best if she heard this information so they can make a better informed decisiontogether. At that point he asked me to leave the room, stating he was done talking to me. Assessment/Plan HF NYHA Class [] I [] II [x] III [] IV []Unable to assess [] N/A Acute on chronic HFrEF (20% 05/2024) due to non-ischemic CMP: -Heart cath 06/17/2024 ruled out coronary disease, cardiomyopathy is not ischemic in origin -He has been noncompliant with medical therapy in the outpatient setting, and has declined medications and testing while admitted. -He is on Lasix 80 mg IV twice daily. He has declined any of his daily metolazone doses. -Entresto and Aldactone have been held due to renal insufficiency and hyperkalemia. -He has a LifeVest, but has been noncompliant with wearing this. Has declined evaluation for ICD. -Discussed with Dr. Zhang in the office today regarding his refusal for follow- up in our heart failure clinic at [facility]. Dr. Zhang wanted again it reiterated that he feels his best outcome would occur if he received specialized treatment there in that office. He quoted a greater than 50% mortality rate over the next year if we are unable to adequately treat him. I did review this information with him. I told him I wanted to call his girlfriend Kaitlin to review it with her as well, howeverhe told me I was not allowed to. -I reviewed further diuresis with nephrology, we will continue IV Lasix today as he did show large volume urine output with improvement in renal function. He will likely be changed to oral diuretic going forward tomorrow. Hypertension -Blood pressure is controlled. -Will continue carvedilol. Chronic kidney disease. -Limiting guideline directed medical therapy for heart failure. -Nephrology following as well. Recent DVT- -Cont Eliquis mgt per primary service Nonsustained VT/ Intermittent LBBB Seen previously, rec and arranged for LifeVest. Noncompliant. Noted he was not wearing it at officevisit with cardiology on July 21 -Continue high-dose carvedilol Medications: apixaban, 5 mg, Oral, BID carvedilol, 25 mg, Oral, BID WC cholecalciferol, 4,000 Units, Oral, Daily furosemide, 80 mg, IntraVENous, BID metOLazone, 5 mg, Oral, Daily [Held by provider] sacubitril-valsartan, 1 tablet, Oral, BID sodium bicarbonate, 1,300 mg, Oral, BID Infusion Medications: Physical Examination: Vitals: 07/27/24 0024 07/27/24 0428 07/27/24 0831 07/27/24 1146 BP: 121/87 108/78 121/86 114/86 BP Location: Left arm Right arm Patient Position: Lying Lying Pulse: 57 99 105 107 Resp: 18 14 16 17 Temp: 36.6 C (97.9 F) 37.1 C (98.7 F) 36.6 C (97.8 F) 36.6 C (97.8 F) TempSrc: Temporal Temporal Temporal Temporal SpO2: 99% 98% 96% 93% Weight: Intake/Output Summary (Last 24 hours) at 07/27/2024 1237 Last data filed at 07/26/2024 2356 Gross per 24 hour Intake 600 ml Output 3900 ml Net -3300 ml Patient Vitals for the past 168 hrs: Weight Weight Method 07/26/24 0500 182 lb (82.6 kg) -- 07/25/24 1105 185 lb (83.9 kg) Standing scale 07/24/24 1727 195 lb 15.8 oz (88.9 kg) Bed scale Physical Exam Constitutional: Appearance: Normal appearance. Comments: Unable to do complete exam due to patient refusal. Patient is lying flat in bed. He appears comfortable without any dyspnea noted. He is not on nasal cannula oxygen. He is able to converse without problems. HENT: Head: Normocephalic and atraumatic. Eyes: General: Right eye: No discharge. Left eye: No discharge. Psychiatric: Comments: Argumentative Laboratory Tests: TROPONIN I, CONVENTIONAL SENSITIVITY TROPONIN I Date Value Ref Range Status 05/28/2024 0.037 (H) <0.034 ng/mL Final 05/28/2024 0.051 (H) <0.034 ng/mL Final 04/28/2024 0.032 <0.034 ng/mL Final 04/28/2024 0.025 <0.034 ng/mL Final 04/28/2024 0.020 <0.034 ng/mL Final TROPONIN I, HIGH SENSITIVITY Troponin HS, Serial Baseline Date Value Ref Range Status 07/23/2024 33 <=35 ng/L Final 07/11/2024 218 (HH) <=35 ng/L Final 07/03/2024 39 (H) <=35 ng/L Final 06/18/2024 44 (H) <=35 ng/L Final 06/13/2024 50 (H) <=35 ng/L Final Troponin HS, Serial Second Date Value Ref Range Status 07/23/2024 30 <=35 ng/L Final 07/11/2024 221 (HH) <=35 ng/L Final 07/03/2024 33 <=35 ng/L Final 06/13/2024 53 (H) <=35 ng/L Final Troponin HS Delta, Baseline to Second Date Value Ref Range Status 07/11/2024 3 <=2 ng/L Final Comment: A troponin delta greater than or equal to 15 ng/L is significant for acute cardiac injury. Values less than 15 but greater than 2 are an intermediate change requiring a 3rd serial troponin to be drawn. Values less than or equal to 2 indicate acute cardiac injury is not likely, see external algorithmsfor further clinical guidance. 07/03/2024 -6 <=2 ng/L Final Comment: This specimen was collected more than 20 minutes away from the 2 hour target. Use of this delta with the 2 hour troponin algorithm is not recommended, individualized clinical assessment is needed. A troponin delta greater than or equal to 15 ng/L is significant for acute cardiac injury. Values less than 15 but greater than 2 are an intermediate change requiring a 3rd serial troponin to be drawn. Values less than or equal to 2 indicate acute cardiac injury is not likely, see external algorithmsfor further clinical guidance. 06/13/2024 3 <=2 ng/L Final Comment: This specimen was collected more than 20 minutes away from the 2 hour target. Use of this delta with the 2 hour troponin algorithm is not recommended, individualized clinical assessment is needed. A troponin delta greater than or equal to 15 ng/L is significant for acute cardiac injury. Values less than 15 but greater than 2 are an intermediate change requiring a 3rd serial troponin to be drawn. Values less than or equal to 2 indicate acute cardiac injury is not likely, see external algorithmsfor further clinical guidance. Troponin HS, Serial Third Date Value Ref Range Status 07/12/2024 218 (HH) <=35 ng/L Final 06/13/2024 49 (H) <=35 ng/L Final Troponin HS Delta, Second to Third Date Value Ref Range Status 07/12/2024 -3 <=2 ng/L Final Comment: A troponin delta greater than or equal to 15 ng/L is suggestive of acute cardiac injury. Values less than 15, see clinical guidance for ED and Inpatient algorithms. 06/13/2024 -4 <=2 ng/L Final Comment: This specimen was collected more than 20 minutes away from the 2 hour target. Use of this delta with the 2 hour troponin algorithm is not recommended, individualized clinical assessment is needed. A troponin delta greater than or equal to 15 ng/L is suggestive of acute cardiac injury. Values less than 15, see clinical guidance for ED and Inpatient algorithms. Recent Labs 07/26/24 0907 07/27/24 0103 NA 138 140 K 3.4* 3.6 CL 103 102 CO2 23 24 BUN 40* 35* CREATININE 2.14* 1.84* Recent Labs 07/26/24 0907 07/27/24 0103 WBC 5.5 5.7 HGB 14.1 13.8 HCT 43.0 42.4 MCV 101.4* 101.9* PLT 240 241 Recent Labs 07/26/24 0907 07/27/24 0103 BNP 18,824* 18,561* No results for input(s): TRIG, HDL, LDLCALC, CHOL in the last 72 hours. No results found for: LDLCHOLESTER Lab Results Component Value Date TSH 3.18 07/23/2024 EF BP Date Value Ref Range Status 06/15/2024 20 (A) 55 - 100 % Final 06/13/24 TRANSTHORACIC ECHOCARDIOGRAM (TTE) COMPLETE (CONTRAST/BUBBLE/3D PRN) 06/15/2024 1:59 PM (Final) Interpretation Summary Left Ventricle: Left ventricle is dilated. Mildly increased wall thickness. Severely reduced left ventricular systolic function. EF by 2D Simpsons Biplane is 20%. Global longitudinal strain is reduced with a value of -5.0%. Severe global hypokinesis present. Right Ventricle: Right ventricle is dilated. Moderately reduced systolic function. Aortic Valve: Mild (1+) regurgitation. Mitral Valve: Moderate (2+) regurgitation with an eccentrically directed jet and and may underestimate severity. Tricuspid Valve: Moderately elevated RVSP. RVSP is 46 mmHg. Pericardium: Small (<1 cm) pericardial effusion present. Findings do not support cardiac tamponade. IVC/Hepatic Veins: IVC diameter is dilated and decreases less than 50% during inspiration; therefore the estimated right atrial pressure is elevated (~15 mmHg). Slow blood flow, echogenic. Signed by: Ofelia Villalobos on 06/15/2024 1:59 PM Other reports reviewed: Cardiac Tests: EC07/23/2024 IMPRESSION: Sinus tachycardia Anterior infarct, old Electronically Signed On 07-23-2024 21:59:14 EST by Bertha Kylee Tracing reviewed. Telemetry findings reviewed: SR EF BP Date Value Ref Range Status 06/15/2024 20 (A) 55 - 100 % Final Jovanna Christian PA-C Date Of Service 07/27/2024 * THOMAS Carlos CNP - 07/27/2024 12:36 PM EST I attest and agree with Nicole Cross DOUGHNUT MACHINE OPERATOR HELPER student's progress note, assessment and plan of care for today * Chuyita Holloway MD - 07/27/2024 9:04 AM EST Images from the original note were not included. Palliative Care Progress Note Chief Complaint: Carlo is a 44 y.o. male with chief complaint of SOB Palliative care consulted for goals of care Palliative Care is actively following Assessment/Plan Goals of care Carlo Medina retains capacity for medical decision-making -legal surrogate decision maker is daughterZena - patient wanting girlfriend Loco(Kaitlin )to make decisions for him, encouraged patient to complete HCPOA paperwork - patient's goal continues to remain to continue all care possible including CPR, Intubation, Vent - Code status remains Full Code - will continue to have ongoing goals of care conversations with patient, family Acute on chronic HFrEF (20% 05/2024) due to non-ischemic CMP - patient with repeated hospitalizations for HF exacerbation, mostly due to his non compliance - had 5 admissions 2023 - patient remains on IV lasix 80 mg twice daily - pt has a life vest at home Nonsustained VT/ Intermittent LBBB - life vest was ordered for home - remains on high dose coreg B/L LE DVT - on elliquis SCHUYLER on CKD - per cardiology notes one reason for his renal dysfunction is likely due to poor cardiac output - creatinine 1.84 today Palliative Care Encounter -Code Status: Full Code - will continue to follow for ongoing monitoring of progression of Dyspnea and Constipation as wellas for appropriateness for hospice care due to CHF - will continue to evaluate test results related to CHF, medication effectiveness for Dyspnea and Constipation, response to treatment of CHF - obtaining testing as needed to monitor medication results:N/A PC Time Stamp: Total of 65 minutes spent on this encounter including Chart review, Patient visit and exam, Documentation in EHR, Care coordination, and Communicating with primary attending or other consultants. Discharge planning: Not ready for discharge due to ongoing goals of care discussion Patient meets criteria for general inpatient hospice care: No Palliative Care IDT members involved: None Discussed the plan of care with the other interdisciplinary team (IDT) members of the Palliative Care and Hospice teams and Patient and Floor Nurse. Subjective: Subjective/Events Carlo Medina is a 44 y.o. male admitted to [facility] on 07/23/24 with complain of SOB and leg swelling. Patient seen and examined this afternoon. Patient was lying on bed. Patient denied SOB when seen. Patient stated his leg swelling is coming down. Patient complained about getting extra dose of lasix, stated he is tired of having to go to the bathroom all the time especially at night. Stated he does not agree that he should be getting all this lasix as his leg swelling is coming down. 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 [place] Symptom Assessment Score [place] Score Pain Score (if non-verbal, add .FLACC below) 0 Tiredness Score 0 Nausea Score 0 Depression Score 0 Anxiety Score 0 Drowsiness Score 0 Anorexia Score (0= eating well, 10= not eating) 0 Wellbeing Score (10= worst sense of well-being) 2 Constipation 0 Dyspnea Score (0= no shortness of breath) 0 Family Meeting: Participants: patient Family meeting was held to discuss:Diagnosis and Prognosis, Goals of Care, Treatment Options, Symptom Management, Advanced Care Planning, and Prior Expressed Wishes Objective: BP 121/86 Pulse 105 Temp 36.6 C (97.8 F) (Temporal) Resp 16 Wt 182 lb (82.6 kg) SpO2 96% BMI 24.01 kg/m Physical Exam Constitutional: Appearance: He is ill-appearing. HENT: Head: Normocephalic. Right Ear: External ear normal. Nose: Nose normal. Mouth/Throat: Mouth: Mucous membranes are moist. Eyes: General: No scleral icterus. Right eye: No discharge. Left eye: No discharge. Conjunctiva/sclera: Conjunctivae normal. Pupils: Pupils are equal, round, and reactive to light. Cardiovascular: Rate and Rhythm: Tachycardia present. Pulses: Normal pulses. Heart sounds: Normal heart sounds. No murmur heard. Pulmonary: Effort: Pulmonary effort is normal. No respiratory distress. Breath sounds: No stridor. No wheezing. Abdominal: General: Bowel sounds are normal. There is no distension. Palpations: Abdomen is soft. Musculoskeletal: General: Swelling present. Left lower leg: Edema present. Skin: General: Skin is warm. Coloration: Skin is not jaundiced. Neurological: Mental Status: He is oriented to person, place, and time. Psychiatric: Mood and Affect: Mood normal. Medication information: 24-hour PRN meds received: Zofran 4 mg IV x 1 Results/Verification of Data Review Objective data reviewed (must include dates reviewed for labs, imaging reports and other specialty notes): -labs, MAR, Vitals reviewed 07/27/24 Data in Support of Terminal Illness: Is patient hospice appropriate? TBD Chuyita Holloway MD * Taylor Mar - 07/26/2024 2:29 PM EST Images from the original note were not included. Spiritual Care Note [facility] Patient Name:Carlo Medina Chief Complaint: Chief Complaint Patient presents with Shortness of Breath Abdominal Pain Visit Type: Initial Visit Reason for visit: Consult from Provider Services Provided To: patient Visit note: Patient reluctant to talk about health or spiritual issues. He did say he speaks with his brother and girl friend. Will try and reconnect Friday. Impact of spiritual distress on quality of life? sometimes Taylor Mar 07/26/24 * Jovanna Christian PA-C - 07/26/2024 1:08 PM EST [facility] [place] [facility] Cardiology /Electrophysiology Progress Note HPI / Interval History: Mr. Carlo Medina, 44 year old male presents to [facility] due to heart failure. He has a history of nonischemic cardiomyopathy with severe biventricular failure, last EF measured 20% per transthoracic echo June 15, 2024. Hx of [facility] heart failure adm due to poor compliance and poor health literacy. He has had extended and multiple discussions about medical Rx. -recently DC from [facility] 07/05, [facility] 07/16, presented to the office 07/21 volume overloaded-in which he admitted he had not been taking most of his meds or diuretics. He has been recommended and has been referred to [facility] heart failure clinic. Recently noted to have increased wt as outpt at [facility] and K+5.8 was subsequently found. - he continues to be diuresed, IV lasix 80 mg twice daily. He continues to state he does not wish to be transferred to [facility]. States he will consider outpatient follow up in the heart failure clinic at [facility]. We had a lengthy discussion regarding the importance of compliance, andbenefits of the heart failure clinic. Assessment/Plan HF NYHA Class [] I [] II [x] III [] IV []Unable to assess [] N/A Acute on chronic HFrEF (20% 05/2024) due to non-ischemic CMP: -Heart cath 06/17/2024 ruled out coronary disease, cardiomyopathy is not ischemic in origin -He has been noncompliant with medical therapy in the outpatient setting, and has declined medications and testing while admitted. -He is on Lasix 80 mg IV twice daily. He declined his dose of metolazone this morning. -Entresto was held, presumed due to renal insufficiency. -Aldactone was held due to hyperkalemia. -Has a LifeVest, but has been noncompliant with wearing this. Has declined evaluation for ICD. -Will request assistance of nephrology as renal insufficiency is limiting guideline directed medical therapy. Discussed with Dr. Lassiter earlier today regarding this. Hypertension -Blood pressure is controlled. -Will continue current doses of Coreg. Entresto was held. Chronic kidney disease. -Limiting guideline directed medical therapy for heart failure. -Plan consultation to nephrology as per conversation with Dr. Lassiter. Recent DVT- -Cont Eliquis mgt per primary service Nonsustained VT/ Intermittent LBBB Seen previously, rec and arranged for LifeVest. Noncompliant. Noted he was not wearing it at officevisit with cardiology on July 21 -Continue high-dose carvedilol Medications: apixaban, 5 mg, Oral, BID carvedilol, 25 mg, Oral, BID WC cholecalciferol, 4,000 Units, Oral, Daily furosemide, 80 mg, IntraVENous, BID metOLazone, 5 mg, Oral, Daily [Held by provider] sacubitril-valsartan, 1 tablet, Oral, BID sodium bicarbonate, 1,300 mg, Oral, BID Infusion Medications: Physical Examination: Vitals: 07/26/24 0318 07/26/24 0500 07/26/24 0855 07/26/24 1125 BP: 112/84 111/85 96/80 BP Location: Patient Position: Pulse: 104 106 107 Resp: 18 16 20 Temp: 36.6 C (97.9 F) 36.3 C (97.4 F) 36.4 C (97.6 F) TempSrc: Temporal Temporal Temporal SpO2: 93% 97% 100% Weight: 182 lb (82.6 kg) Intake/Output Summary (Last 24 hours) at 07/26/2024 1308 Last data filed at 07/26/2024 1050 Gross per 24 hour Intake 200 ml Output 5300 ml Net -5100 ml Patient Vitals for the past 168 hrs: Weight Weight Method 07/26/24 0500 182 lb (82.6 kg) -- 07/25/24 1105 185 lb (83.9 kg) Standing scale 07/24/24 1727 195 lb 15.8 oz (88.9 kg) Bed scale Physical Exam Constitutional: General: He is not in acute distress. Appearance: He is not diaphoretic. HENT: Head: Normocephalic. Eyes: General: Right eye: No discharge. Left eye: No discharge. Conjunctiva/sclera: Conjunctivae normal. Cardiovascular: Rate and Rhythm: Normal rate and regular rhythm. Pulmonary: Breath sounds: No wheezing or rales. Abdominal: General: Bowel sounds are normal. Palpations: Abdomen is soft. Musculoskeletal: Right lower leg: Edema present. Left lower leg: Edema present. Comments: Pitting edema to just above the knees. Wraps on legs bilaterally Skin: General: Skin is warm and dry. Findings: No erythema or rash. Neurological: Mental Status: He is oriented to person, place, and time. Psychiatric: Mood and Affect: Mood normal. Laboratory Tests: TROPONIN I, CONVENTIONAL SENSITIVITY TROPONIN I Date Value Ref Range Status 05/28/2024 0.037 (H) <0.034 ng/mL Final 05/28/2024 0.051 (H) <0.034 ng/mL Final 04/28/2024 0.032 <0.034 ng/mL Final 04/28/2024 0.025 <0.034 ng/mL Final 04/28/2024 0.020 <0.034 ng/mL Final TROPONIN I, HIGH SENSITIVITY Troponin HS, Serial Baseline Date Value Ref Range Status 07/23/2024 33 <=35 ng/L Final 07/11/2024 218 (HH) <=35 ng/L Final 07/03/2024 39 (H) <=35 ng/L Final 06/18/2024 44 (H) <=35 ng/L Final 06/13/2024 50 (H) <=35 ng/L Final Troponin HS, Serial Second Date Value Ref Range Status 07/23/2024 30 <=35 ng/L Final 07/11/2024 221 (HH) <=35 ng/L Final 07/03/2024 33 <=35 ng/L Final 06/13/2024 53 (H) <=35 ng/L Final Troponin HS Delta, Baseline to Second Date Value Ref Range Status 07/11/2024 3 <=2 ng/L Final Comment: A troponin delta greater than or equal to 15 ng/L is significant for acute cardiac injury. Values less than 15 but greater than 2 are an intermediate change requiring a 3rd serial troponin to be drawn. Values less than or equal to 2 indicate acute cardiac injury is not likely, see external algorithmsfor further clinical guidance. 07/03/2024 -6 <=2 ng/L Final Comment: This specimen was collected more than 20 minutes away from the 2 hour target. Use of this delta with the 2 hour troponin algorithm is not recommended, individualized clinical assessment is needed. A troponin delta greater than or equal to 15 ng/L is significant for acute cardiac injury. Values less than 15 but greater than 2 are an intermediate change requiring a 3rd serial troponin to be drawn. Values less than or equal to 2 indicate acute cardiac injury is not likely, see external algorithmsfor further clinical guidance. 06/13/2024 3 <=2 ng/L Final Comment: This specimen was collected more than 20 minutes away from the 2 hour target. Use of this delta with the 2 hour troponin algorithm is not recommended, individualized clinical assessment is needed. A troponin delta greater than or equal to 15 ng/L is significant for acute cardiac injury. Values less than 15 but greater than 2 are an intermediate change requiring a 3rd serial troponin to be drawn. Values less than or equal to 2 indicate acute cardiac injury is not likely, see external algorithmsfor further clinical guidance. Troponin HS, Serial Third Date Value Ref Range Status 07/12/2024 218 (HH) <=35 ng/L Final 06/13/2024 49 (H) <=35 ng/L Final Troponin HS Delta, Second to Third Date Value Ref Range Status 07/12/2024 -3 <=2 ng/L Final Comment: A troponin delta greater than or equal to 15 ng/L is suggestive of acute cardiac injury. Values less than 15, see clinical guidance for ED and Inpatient algorithms. 06/13/2024 -4 <=2 ng/L Final Comment: This specimen was collected more than 20 minutes away from the 2 hour target. Use of this delta with the 2 hour troponin algorithm is not recommended, individualized clinical assessment is needed. A troponin delta greater than or equal to 15 ng/L is suggestive of acute cardiac injury. Values less than 15, see clinical guidance for ED and Inpatient algorithms. Recent Labs 07/23/24212607/24/24 0243 07/24/24 0600 07/26/24 0907 NA 140 138 138 138 K 4.6 4.4 4.3 3.4* CL 106 107 108* 103 CO2 19* 19* 20* 23 BUN 37* 37* 38* 40* CREATININE 2.24* 1.98* 2.19* 2.14* Recent Labs 07/23/24212607/24/24 0600 07/26/24 0907 WBC 8.8 7.4 5.5 HGB 15.2 14.4 14.1 HCT 46.5 45.0 43.0 MCV 102.2* 103.7* 101.4* PLT 255 225 240 Recent Labs 07/23/24212607/24/24 0600 07/26/24 0907 BNP 26,294* 20,238* 18,824* No results for input(s): TRIG, HDL, LDLCALC, CHOL in the last 72 hours. No results found for: LDLCHOLESTER Lab Results Component Value Date TSH 3.18 07/23/2024 EF BP Date Value Ref Range Status 06/15/2024 20 (A) 55 - 100 % Final 06/13/24 TRANSTHORACIC ECHOCARDIOGRAM (TTE) COMPLETE (CONTRAST/BUBBLE/3D PRN) 06/15/2024 1:59 PM (Final) Interpretation Summary Left Ventricle: Left ventricle is dilated. Mildly increased wall thickness. Severely reduced left ventricular systolic function. EF by 2D Simpsons Biplane is 20%. Global longitudinal strain is reduced with a value of -5.0%. Severe global hypokinesis present. Right Ventricle: Right ventricle is dilated. Moderately reduced systolic function. Aortic Valve: Mild (1+) regurgitation. Mitral Valve: Moderate (2+) regurgitation with an eccentrically directed jet and and may underestimate severity. Tricuspid Valve: Moderately elevated RVSP. RVSP is 46 mmHg. Pericardium: Small (<1 cm) pericardial effusion present. Findings do not support cardiac tamponade. IVC/Hepatic Veins: IVC diameter is dilated and decreases less than 50% during inspiration; therefore the estimated right atrial pressure is elevated (~15 mmHg). Slow blood flow, echogenic. Signed by: Ofelia Villalobos on 06/15/2024 1:59 PM Other reports reviewed: Cardiac Tests: EC07/23/2024 IMPRESSION: Sinus tachycardia Anterior infarct, old Electronically Signed On 07-23-2024 21:59:14 EST by Bertha Pichardo Tracing reviewed. Telemetry findings reviewed: SR EF BP Date Value Ref Range Status 06/15/2024 20 (A) 55 - 100 % Final Jovanna Christian PA-C Date Of Service 07/26/2024 * Berenice Rosenthal, CURRICULUM DIRECTOR - WHITING MACHINE OPERATOR - 07/25/2024 4:06 PM EST Hospitalist Progress Note 07/25/2024 Subjective: Admit Date: 07/23/2024 PCP: No primary care provider on file. Room#: -[phone] A BRIEF HOSPITAL COURSE: Carlo is a 44 y.o. male with past medical history significant for heart failure with reduced ejection fraction, chronic kidney disease, left bundle branch block, hypertension, noncompliance behavior, history of non-ST elevation ND who presented to the emergency room with complaint of swelling in the legs and shortness of breath along with abnormal labs. Patient symptoms have been going on for last couple days and has been progressively getting worse. Patient got lab work done as an outpatientper cardiology recommendation. Patient was advised by them to double up on his diuretics as the swelling was persistent in the legs. Patient had gained 10 pounds since last admission about 1 week ago. Patient received a call from the cardiology office stating the renal function is getting worse. Patient continued to have worsening swelling and shortness of breath and was advised to come to the emergency room for further evaluation 07/25/24 Per cardiology continue 80mg IV Lasix BID and Metolazone 5 mg daily, strict I&Os, has life vest at home, not wearing it, refusing lab draws, meds, non compliance, palliative consulted, 5 admits in 2023 Interval History: No overnight issues.Patent standing up just finished getting washed up, helped him tie up his gown,he said well I don't want to talk right now I'm doing something but I like you so I guess you can stay endorses shortness of breath on exertion, denied chest pain overnight or today, feels like legswelling going down a little, wants RN to re-wrap legs , checked legs, swelling appears like it hasgone down some but not in feet, LUCRECIA wraps need to be re-done, let nurse know, denies fever/chills, N/V/D and had no other complaints Case and plan discussed with patient and bedside nurse. All questions answered. Adult diet Regular; Low Sodium (2 gm) 24HR INTAKE/OUTPUT: Intake/Output Summary (Last 24 hours) at 07/25/2024 1606 Last data filed at 07/25/2024 0953 Gross per 24 hour Intake 120 ml Output 2000 ml Net -1880 ml Past Medical History: Past Medical History: Diagnosis Date Acute HFrEF (heart failure with reduced ejection fraction) ([facility]) 06/13/2024 Acute kidney injury superimposed on CKD ([facility]) ([facility]) 07/03/2024 At risk for obstructive sleep apnea 05/31/2024 o/p sleep study recommended during admission CHF (congestive heart failure) ([facility]) CKD (chronic kidney disease) HFrEF (heart failure with reduced ejection fraction) ([facility]) 04/28/2024 History of left bundle branch block (LBBB) 06/19/2024 Hypercholesteremia Hypertension Noncompliance 06/19/2024 NSTEMI (non-ST elevated myocardial infarction) ([facility]) 07/11/2024 Pulmonary vascular congestion 04/28/2024 Sinus tachycardia 06/19/2024 LABS: CBC: Recent Labs 07/23/24212607/24/24 0600 WBC 8.8 7.4 RBC 4.55 4.34* HGB 15.2 14.4 HCT 46.5 45.0 MCV 102.2* 103.7* RDW 13.8 13.9 PLT 255 225 BMP: Recent Labs 07/23/24212607/24/24 0243 07/24/24 0600 NA 140 138 138 K 4.6 4.4 4.3 CL 106 107 108* CO2 19* 19* 20* BUN 37* 37* 38* CREATININE 2.24* 1.98* 2.19* GLUCOSE 102* 107* 108* CALCIUM 9.1 8.3* 8.5 ANIONGAP 15* 12 10 LIVER PROFILE:No results for input(s): AST, ALT, BILITOT, ALKPHOS, PROT in the last 72 hours. No lab exists for component: LABALBU PT/INR: No results for input(s): PROTIME, INR in the last 72 hours. CARDIAC ENZYMES: No results for input(s): TROPONINI in the last 72 hours. Procalcitonin: No results found for: PROCAL COVID-19 PCR: No results for input(s): COVID19 in the last 72 hours. Objective: Vitals: BP 123/87 Pulse 98 Temp 36.7 C (98.1 F) (Temporal) Resp 17 Wt 83.9 kg (185 lb) SpO2 98% BMI 24.41 kg/m Pulse Ox: SpO2 Av.7 % Min: 98 % Max: 100 % Supplemental O2: Physical Exam Vitals and nursing note reviewed. Constitutional: Appearance: Normal appearance. HENT: Head: Normocephalic and atraumatic. Mouth/Throat: Mouth: Mucous membranes are moist. Eyes: Extraocular Movements: Extraocular movements intact. Conjunctiva/sclera: Conjunctivae normal. Pupils: Pupils are equal, round, and reactive to light. Cardiovascular: Rate and Rhythm: Normal rate and regular rhythm. Pulmonary: Effort: Pulmonary effort is normal. Breath sounds: Normal breath sounds. Abdominal: General: Bowel sounds are normal. Palpations: Abdomen is soft. Musculoskeletal: General: Normal range of motion. Cervical back: Normal range of motion and neck supple. Right lower leg: Edema present. Left lower leg: Edema present. Comments: LUCRECIA wraps on BLE Skin: General: Skin is warm and dry. Neurological: General: No focal deficit present. Mental Status: He is alert and oriented to person, place, and time. Psychiatric: Mood and Affect: Mood normal. Thought Content: Thought content normal. Medications: Scheduled PRN apixaban, 5 mg, Oral, BID carvedilol, 25 mg, Oral, BID WC cholecalciferol, 4,000 Units, Oral, Daily furosemide, 80 mg, IntraVENous, BID metOLazone, 5 mg, Oral, Daily sacubitril-valsartan, 1 tablet, Oral, BID sodium bicarbonate, 1,300 mg, Oral, BID PRN medications: acetaminophen OR acetaminophen, ondansetron ODT OR ondansetron, polyethylene glycol (PEG) 3350 Continuous Assessment Data: Acute, acute on chronic, unstable/uncontrolled chronic problems/diagnoses: HFrEF-TTE May 2024 EF 20% Non ischemic cardiomyopathy Acute kidney injury with history of CKD Shortness of breath Persistent leg edema Stable chronic problems affecting care, new non-acute diagnoses: History of coronary artery disease Left heart catheterization 06/17/24 no interventions at that time LBBB NSTEMI Hyperlipidemia DVT Noncompliance behavior Plan As a result of the above findings & factors, the following mgmt was pursued: -History of non compliance, has been to the hospital 07/03, 07/11, 07/12, and now 07/23 for shortness ofbreath or edema -Cardiology following and started patient on 80 mg IV Lasix BID target 1-2 Liters negative per day,Coreg 25 mg BID, restart Entresto , close follow up with kidney function/K+ level, spoke aboutHF outpatient clinic at [facility] -Cardiology started Metolazone 5 mg daily -Continue monitor daily weight -Monitor renal function - O2 as needed - Low-salt cardiac diet - am labs, replace lytes prn - Lucrecia wrap bilateral lower extremities - delirium precautions: increase activity and limit nighttime disturbances - DVT prophylaxis: SCDs, encourage ambulation, and already anticoagulated Complexity: Chronic illness with mild to moderate exacerbation, progression, or side effect of tx (MOD). Risk: Prescription drug/IVF/colloid was initiated, discontinued, adjusted; or reviewed with decision to maintain current orders (MOD). Advance Directive: Full Code Anticipated Discharge - Date - TBD - Location - Home - Pending the following - symptoms resolve some Extended Emergency Contact Information Primary Emergency Contact: Kaitlin Hicks Mobile Relation: Significant Other Secondary Emergency Contact: Wall[place]Indira Mobile Relation: Sister Berenice Soniya THOMAS Rosenthal CNP Division of Hospitalist Medicine [facility] * Angel Luis Lassiter MD - 07/25/2024 1:20 PM EST Images from the original note were not included. Msg by RN. Pt refusing meds and blood draws. He does not seem to understand that if he wants to get better that compliance with recommendations is how he gets there. -Placed Palliative consult -Unclear if there is a psychiatric d/o, MRDD or other barrier to understanding his medical issues. His current approach to our recommendations is not compatible with a good prognosis. -Weights somewhat variable though trend has been upward. Yest wt 195 and today 185. Seems unlikely that he lost 10 lbs (4.5 L) in 18 hrs but weights are notreliable by standing scales at [place]. See weight below: * Morgan Ulloa, CURRICULUM DIRECTOR - WHITING MACHINE OPERATOR - 07/25/2024 10:03 AM EST [facility] [place] [facility] Cardiology /Electrophysiology Progress Note HPI / Interval History: Mr. Carlo Medina, 44 year old male presents to [facility] due to heart failure. He has a history of nonischemic cardiomyopathy with severe biventricular failure, last EF measured 20% per transthoracic echo June 15, 2024. Hx of [facility] heart failure adm due to poor compliance and poor health literacy. He has had extended and multiple discussions about medical Rx. -recently DC from [facility] 07/05, [facility]-DC 07/16, presented to the office 07/21 volume overloaded-in which he admitted he had not been taking most of his meds or diuretics. He has been recommended and has been referred to [facility] heart failure clinic. Recently noted to have increased wt as outpt at [facility] and K+5.8 was subsequently found. - he continues to be diuresed, IV lasix 80 mg twice daily. He continues to state he does not wish to be transferred to [facility]. States he will consider outpatient follow up in the heart failure clinic at [facility]. We had a lengthy discussion regarding the importance of compliance, andbenefits of the heart failure clinic. Assessment/Plan HF NYHA Class [] I [] II [x] III [] IV []Unable to assess [] N/A Acute on chronic HFrEF (20% 05/2024) due to non-ischemic CMP: -Heart cath 06/17/2024 ruled out coronary disease, cardiomyopathy is not ischemic in origin -Suspect possible origins include history of poorly controlled hypertension for years and/or genetic (father- sudden cardiac , brother - HF, alive). -P/w SOB, LE edema, increased wt and increase ProBNP level 2nd highest since testing began (26K). - IV lasix 80 mg twice daily continues along with metolazone 5 mg daily - I again ordered daily stand up scale weights to help guide diuresis - will continue present GDMT- Coreg 25 mg BID, Entresto 49/51 mg twice daily - would continue to remain off aldactone due to recent hyperkalemia - Pt's poor compliance has made optimizing his GDMT difficult - will continue to monitor heart rate - pt has a life vest at home, ( was not wearing the vest when seen in office 07/21) - will accept elevated creatinine presently. Will continue to encourage daily BMP 2. Hypertension- Stable. Target <130/80 mmHg; lower if able to tolerate to allow function of HF meds. - Continue antihypertensives 3. CKD- -GFR36. One reason for his renal dysfunction is likely due to poor cardiac output -Daily BMP -Given hyperkalemia may not be able to tolerate full GDMT 4. Recent DVT- -Cont Eliquis mgt per primary service 5. Nonsustained VT/ Intermittent LBBB Seen previously, rec and arranged for LifeVest. Doubt compliant -Continue high-dose carvedilol Medications: apixaban, 5 mg, Oral, BID carvedilol, 25 mg, Oral, BID WC cholecalciferol, 4,000 Units, Oral, Daily furosemide, 80 mg, IntraVENous, BID metOLazone, 5 mg, Oral, Daily sacubitril-valsartan, 1 tablet, Oral, BID sodium bicarbonate, 1,300 mg, Oral, BID Infusion Medications: Physical Examination: Vitals: 07/24/24 1938 07/25/24 0025 07/25/24 0335 07/25/24 0832 BP: 109/80 115/81 119/88 117/88 BP Location: Left arm Left arm Left arm Patient Position: Lying Lying Lying Pulse: 102 51 105 100 Resp: 16 Temp: 36.6 C (97.9 F) 36.3 C (97.4 F) 36.2 C (97.2 F) 36.1 C (97 F) TempSrc: Temporal Temporal Temporal Temporal SpO2: 98% 98% 99% 100% Weight: Intake/Output Summary (Last 24 hours) at 07/25/2024 1003 Last data filed at 07/25/2024 0953 Gross per 24 hour Intake 360 ml Output 2000 ml Net -1640 ml Patient Vitals for the past 168 hrs: Weight Weight Method 07/24/24 1727 195 lb 15.8 oz (88.9 kg) Bed scale Physical Exam Constitutional: NAD Psychiatric: Alert. Medical insight poor Neck: No JVD Respiratory: Lungs are clear anteriorly Heart: heart rate elevated ; Nl S1 and S2, no murmur, no rub, gallop Abdomen: NABS; soft, non-tender, non-distended Extremities: improved LE edema, bilateral legs are wrapped Skin: Warm to touch and well perfused Laboratory Tests: TROPONIN I, CONVENTIONAL SENSITIVITY TROPONIN I Date Value Ref Range Status 05/28/2024 0.037 (H) <0.034 ng/mL Final 05/28/2024 0.051 (H) <0.034 ng/mL Final 04/28/2024 0.032 <0.034 ng/mL Final 04/28/2024 0.025 <0.034 ng/mL Final 04/28/2024 0.020 <0.034 ng/mL Final TROPONIN I, HIGH SENSITIVITY Troponin HS, Serial Baseline Date Value Ref Range Status 07/23/2024 33 <=35 ng/L Final 07/11/2024 218 (HH) <=35 ng/L Final 07/03/2024 39 (H) <=35 ng/L Final 06/18/2024 44 (H) <=35 ng/L Final 06/13/2024 50 (H) <=35 ng/L Final Troponin HS, Serial Second Date Value Ref Range Status 07/23/2024 30 <=35 ng/L Final 07/11/2024 221 (HH) <=35 ng/L Final 07/03/2024 33 <=35 ng/L Final 06/13/2024 53 (H) <=35 ng/L Final Troponin HS Delta, Baseline to Second Date Value Ref Range Status 07/11/2024 3 <=2 ng/L Final Comment: A troponin delta greater than or equal to 15 ng/L is significant for acute cardiac injury. Values less than 15 but greater than 2 are an intermediate change requiring a 3rd serial troponin to be drawn. Values less than or equal to 2 indicate acute cardiac injury is not likely, see external algorithmsfor further clinical guidance. 07/03/2024 -6 <=2 ng/L Final Comment: This specimen was collected more than 20 minutes away from the 2 hour target. Use of this delta with the 2 hour troponin algorithm is not recommended, individualized clinical assessment is needed. A troponin delta greater than or equal to 15 ng/L is significant for acute cardiac injury. Values less than 15 but greater than 2 are an intermediate change requiring a 3rd serial troponin to be drawn. Values less than or equal to 2 indicate acute cardiac injury is not likely, see external algorithmsfor further clinical guidance. 06/13/2024 3 <=2 ng/L Final Comment: This specimen was collected more than 20 minutes away from the 2 hour target. Use of this delta with the 2 hour troponin algorithm is not recommended, individualized clinical assessment is needed. A troponin delta greater than or equal to 15 ng/L is significant for acute cardiac injury. Values less than 15 but greater than 2 are an intermediate change requiring a 3rd serial troponin to be drawn. Values less than or equal to 2 indicate acute cardiac injury is not likely, see external algorithmsfor further clinical guidance. Troponin HS, Serial Third Date Value Ref Range Status 07/12/2024 218 (HH) <=35 ng/L Final 06/13/2024 49 (H) <=35 ng/L Final Troponin HS Delta, Second to Third Date Value Ref Range Status 07/12/2024 -3 <=2 ng/L Final Comment: A troponin delta greater than or equal to 15 ng/L is suggestive of acute cardiac injury. Values less than 15, see clinical guidance for ED and Inpatient algorithms. 06/13/2024 -4 <=2 ng/L Final Comment: This specimen was collected more than 20 minutes away from the 2 hour target. Use of this delta with the 2 hour troponin algorithm is not recommended, individualized clinical assessment is needed. A troponin delta greater than or equal to 15 ng/L is suggestive of acute cardiac injury. Values less than 15, see clinical guidance for ED and Inpatient algorithms. Recent Labs 07/23/24212607/24/24 0243 07/24/24 0600 NA 140 138 138 K 4.6 4.4 4.3 CL 106 107 108* CO2 19* 19* 20* BUN 37* 37* 38* CREATININE 2.24* 1.98* 2.19* Recent Labs 07/23/24212607/24/24 0600 WBC 8.8 7.4 HGB 15.2 14.4 HCT 46.5 45.0 MCV 102.2* 103.7* PLT 255 225 Recent Labs 07/23/24212607/24/24 0600 BNP 26,294* 20,238* No results for input(s): TRIG, HDL, LDLCALC, CHOL in the last 72 hours. No results found for: LDLCHOLESTER Lab Results Component Value Date TSH 3.18 07/23/2024 EF BP Date Value Ref Range Status 06/15/2024 20 (A) 55 - 100 % Final 06/13/24 TRANSTHORACIC ECHOCARDIOGRAM (TTE) COMPLETE (CONTRAST/BUBBLE/3D PRN) 06/15/2024 1:59 PM (Final) Interpretation Summary Left Ventricle: Left ventricle is dilated. Mildly increased wall thickness. Severely reduced left ventricular systolic function. EF by 2D Simpsons Biplane is 20%. Global longitudinal strain is reduced with a value of -5.0%. Severe global hypokinesis present. Right Ventricle: Right ventricle is dilated. Moderately reduced systolic function. Aortic Valve: Mild (1+) regurgitation. Mitral Valve: Moderate (2+) regurgitation with an eccentrically directed jet and and may underestimate severity. Tricuspid Valve: Moderately elevated RVSP. RVSP is 46 mmHg. Pericardium: Small (<1 cm) pericardial effusion present. Findings do not support cardiac tamponade. IVC/Hepatic Veins: IVC diameter is dilated and decreases less than 50% during inspiration; therefore the estimated right atrial pressure is elevated (~15 mmHg). Slow blood flow, echogenic. Signed by: Ofelia Villalobos on 06/15/2024 1:59 PM Other reports reviewed: Cardiac Tests: EC07/23/2024 IMPRESSION: Sinus tachycardia Anterior infarct, old Electronically Signed On 07-23-2024 21:59:14 EST by Bertha Pichardo Tracing reviewed. Telemetry findings reviewed: ST EF BP Date Value Ref Range Status 06/15/2024 20 (A) 55 - 100 % Final THOMAS Mi CNP Date Of Service 07/25/2024 * Jack Cortes - 07/25/2024 8:11 AM EST Nutrition rescreen complete. Pt assigned a level one for nutrition care. * THOMAS Carlos CNP - 07/24/2024 8:45 AM EST Hospitalist Progress Note 07/24/2024 Subjective: Admit Date: 07/23/2024 PCP: No primary care provider on file. Room#: B2-268/B2-268 A BRIEF HOSPITAL COURSE: Carlo is a 44 y.o. male with past medical history significant for heart failure with reduced ejection fraction, chronic kidney disease, left bundle branch block, hypertension, noncompliance behavior, history of non-ST elevation ND who presented to the emergency room with complaint of swelling in the legs and shortness of breath along with abnormal labs. Patient symptoms have been going on for last couple days and has been progressively getting worse. Patient got lab work done as an outpatientper cardiology recommendation. Patient was advised by them to double up on his diuretics as the swelling was persistent in the legs. Patient had gained 10 pounds since last admission about 1 week ago. Patient received a call from the cardiology office stating the renal function is getting worse. Patient continued to have worsening swelling and shortness of breath and was advised to come to the emergency room for further evaluation Interval History: No overnight issues. Patient complained of bilateral lower extremity swelling and he felt the hospital discharged him too soon, he has known compliance, he admits to feeling short of breath, denies chest pain, denies fever/chills, denies N/V/D. No other complaints at this time but wants to stay until his leg swelling has gone down. Case and plan discussed with patient and bedside nurse. All questions answered. Adult diet Regular; Low Sodium (2 gm) 24HR INTAKE/OUTPUT: Intake/Output Summary (Last 24 hours) at 07/24/2024 1728 Last data filed at 07/24/2024 1459 Gross per 24 hour Intake 240 ml Output -- Net 240 ml Past Medical History: Past Medical History: Diagnosis Date Acute HFrEF (heart failure with reduced ejection fraction) ([facility]) 06/13/2024 Acute kidney injury superimposed on CKD ([facility]) ([facility]) 07/03/2024 At risk for obstructive sleep apnea 05/31/2024 o/p sleep study recommended during admission CHF (congestive heart failure) ([facility]) CKD (chronic kidney disease) HFrEF (heart failure with reduced ejection fraction) ([facility]) 04/28/2024 History of left bundle branch block (LBBB) 06/19/2024 Hypercholesteremia Hypertension Noncompliance 06/19/2024 NSTEMI (non-ST elevated myocardial infarction) ([facility]) 07/11/2024 Pulmonary vascular congestion 04/28/2024 Sinus tachycardia 06/19/2024 LABS: CBC: Recent Labs 07/23/24212607/24/24 0600 WBC 8.8 7.4 RBC 4.55 4.34* HGB 15.2 14.4 HCT 46.5 45.0 MCV 102.2* 103.7* RDW 13.8 13.9 PLT 255 225 BMP: Recent Labs 07/23/24212607/24/24 0243 07/24/24 0600 NA 140 138 138 K 4.6 4.4 4.3 CL 106 107 108* CO2 19* 19* 20* BUN 37* 37* 38* CREATININE 2.24* 1.98* 2.19* GLUCOSE 102* 107* 108* CALCIUM 9.1 8.3* 8.5 ANIONGAP 15* 12 10 LIVER PROFILE:No results for input(s): AST, ALT, BILITOT, ALKPHOS, PROT in the last 72 hours. No lab exists for component: LABALBU PT/INR: No results for input(s): PROTIME, INR in the last 72 hours. CARDIAC ENZYMES: No results for input(s): TROPONINI in the last 72 hours. Procalcitonin: No results found for: PROCAL COVID-19 PCR: No results for input(s): COVID19 in the last 72 hours. Objective: Vitals: BP 114/83 (BP Location: Left arm, Patient Position: Lying) Pulse 102 Temp 36.2 C (97.2 F) (Temporal) Resp 18 SpO2 97% Pulse Ox: SpO2 Av.5 % Min: 84 % Max: 100 % Supplemental O2: Physical Exam Vitals and nursing note reviewed. Constitutional: Appearance: Normal appearance. HENT: Head: Normocephalic and atraumatic. Eyes: Extraocular Movements: Extraocular movements intact. Conjunctiva/sclera: Conjunctivae normal. Pupils: Pupils are equal, round, and reactive to light. Cardiovascular: Rate and Rhythm: Normal rate. Pulmonary: Effort: Pulmonary effort is normal. Breath sounds: Normal breath sounds. Abdominal: General: Bowel sounds are normal. Palpations: Abdomen is soft. Musculoskeletal: General: Normal range of motion. Right lower leg: Edema present. Left lower leg: Edema present. Skin: General: Skin is warm and dry. Neurological: General: No focal deficit present. Mental Status: He is alert and oriented to person, place, and time. Psychiatric: Mood and Affect: Mood normal. Thought Content: Thought content normal. Judgment: Judgment normal. Medications: Scheduled PRN apixaban, 5 mg, Oral, BID carvedilol, 25 mg, Oral, BID WC cholecalciferol, 4,000 Units, Oral, Daily furosemide, 80 mg, IntraVENous, BID sacubitril-valsartan, 1 tablet, Oral, BID sodium bicarbonate, 1,300 mg, Oral, BID PRN medications: acetaminophen OR acetaminophen, ondansetron ODT OR ondansetron, polyethylene glycol (PEG) 3350 Continuous Assessment Data: Acute, acute on chronic, unstable/uncontrolled chronic problems/diagnoses: HFrEF-TTE May 2024 EF 20% Non ischemic cardiomyopathy Acute kidney injury with history of CKD Shortness of breath Persistent leg edema Stable chronic problems affecting care, new non-acute diagnoses: History of coronary artery disease Left heart catheterization 06/17/24 no interventions at that time LBBB NSTEMI Hyperlipidemia DVT Noncompliance behavior Plan As a result of the above findings & factors, the following mgmt was pursued: -History of non compliance, has been to the hospital 07/03, 07/11, 07/12, and now 07/23 for shortness ofbreath or edema -Cardiology consulted and started patient on 80 mg IV Lasix BID target 1-2 Liters negative per day,Coreg 25 mg BID, restart Entresto , close follow up with kidney function/K+ level, spoke aboutHF outpatient clinic at [facility] -Continue monitor daily weight -Monitor renal function - O2 as needed - Low-salt cardiac diet - am labs, replace lytes prn - Lucrecia wrap bilateral lower extremities - delirium precautions: increase activity and limit nighttime disturbances - DVT prophylaxis: SCDs, encourage ambulation, and already anticoagulated Complexity: Chronic illness with mild to moderate exacerbation, progression, or side effect of tx (MOD). Risk: Prescription drug/IVF/colloid was initiated, discontinued, adjusted; or reviewed with decision to maintain current orders (MOD). Advance Directive: Full Code Anticipated Discharge - Date - TBD - Location - Home - Pending the following - improvement of symptoms Extended Emergency Contact Information Primary Emergency Contact: Indira Medina Mobile Relation: Sister Secondary Emergency Contact: Kaitlin Hicks Mobile Relation: Significant Other THOMAS Munroe CNP Division of Hospitalist Medicine [facility] documented in this [facility]01-31-2025 Nurse Note* Tamkio Live RN - 07/30/2024 12:39 PM EST Discharge instructions given to patient and went over all new medications . Stressed the importanceof taking the meds to maximize his condition with CHF. Educated patient on importance of follow up with the heart failure clinic on Aug.04. Reminded patient that he will need to get labs drawn before his appointment. Contacted Narcisa Tavarez RN with CM to get a list for patient to find a [id number]* Tamiko Live RN - 07/30/2024 12:39 PM EST Discharge instructions given to patient and went over all new medications . Stressed the importanceof taking the meds to maximize his condition with CHF. Educated patient on importance of follow up with the heart failure clinic on Aug.04. Reminded patient that he will need to get labs drawn before his appointment. Contacted Narcisa Tavarez RN with CM to get a list for patient to find a PCP * Tamiko Live RN - 07/29/2024 10:15 AM EST Nursing went to give IV Magnesium and patient refused. Notified Lilibeth Silvio GUZMAN. * Raj Chilel RN - 07/26/2024 5:31 PM EST Pt refusing carvedilol and potassium at this time, states he doesn't take meds until 2099. Medication moved to 2099. * Raj Chilel RN - 07/26/2024 5:21 PM EST At this time patient is upset that he was put on a fluid restriction diet and, nobody told him. This nurse educated importance of adhering to fluid restriction due to IV lasix therapy and water retention. Patient states he just wanted an extra soda at dinner. This nurse educated how much patient was allowed to have in 24 hours. Patient verbalized understanding. This nurse called down for an extra soda. See I's & O's in flowsheets. * Raj Chilel RN - 07/26/2024 9:26 AM EST Cardiology and attending made aware that patient refuses metolazone this AM. Education by this nurse ineffective. * Tamiko Live RN - 07/26/2024 7:41 AM EST Patient refusing to let this nurse draw morning labs. Educated the patient on the importance of this process during his hospital stay to monitor his status. The only way he will allow blood draw is with US. Request made to TANK ERECTOR nurse. * Osiris Huber RN - 07/26/2024 5:19 AM EST Attempted to draw lab but patient refused at this time.informed the provider. * Osiris Huber RN - 07/25/2024 5:00 AM EST Attempted to draw lab but patient is refusing to draw lab.Informed the doctor. documented in this [facility]01-31-2025 Note* Nurse Navigation Note - Dia Gaitan RN - 07/30/2024 12:04 PM EST HF booster pump oiler: Called pt to confirm that appt at 10:15AM on 08/[address] Astudillo is early enough in the day to accommodate pt's girlfriend's work schedule as she works nights. Offered earlier appt options, but pt states 10:15AM will work out great, no need to reschedule. Confirmed pt knows how to get to [facility]. HF action plan updated in AVS with [facility] contact information. If any further assistance needed, use Secure Chat. Will complete HF discharge call on Wednesday 08/02. [id number]* Nurse Navigation Note - Dia Gaitan RN - 07/30/2024 12:04 PM EST HF booster pump oiler: Called pt to confirm that appt at 10:15AM on 08/[address] Astudillo is early enough in the day to accommodate pt's girlfriend's work schedule as she works nights. Offered earlier appt options, but pt states 10:15AM will work out great, no need to reschedule. Confirmed pt knows how to get to [facility]. HF action plan updated in AVS with [facility] contact information. If any further assistance needed, use Secure Chat. Will complete HF discharge call on Wednesday 08/02. [id number] Miscellaneous Notes* Nurse Navigation Note - Dia Gaitan RN - 07/30/2024 12:04 PM EST HF booster pump oiler: Called pt to confirm that appt at 10:15AM on 08/[address] Astudillo is early enough in the day to accommodate pt's girlfriend's work schedule as she works nights. Offered earlier appt options, but pt states 10:15AM will work out great, no need to reschedule. Confirmed pt knows how to get to [facility]. HF action plan updated in AVS with [facility] contact information. If any further assistance needed, use Secure Chat. Will complete HF discharge call on Wednesday 08/02. * Care Coordination - Brittany Alston RN - 07/30/2024 11:28 AM EST Care Management Progress Note Received another call from O Inpatient Boring Machine Set Up Operator Jig telling me that DOUGHNUT MACHINE OPERATOR HELPER needs to call back transfer center today at [facility] even if pt gets DCED today and fax demographics. Secure chatted Adri Loaiza NPand updated that insurance is requesting she call transfer line and to obtain fax where demos can be faxed per MMO request. Obtained [facility] fax number from DOUGHNUT MACHINE OPERATOR HELPER [phone] and demos faxed as requested. Length of Stay (Days): 2 GMLOS: No GMLOS Documented * Care Coordination - Brittany Alston RN - 07/30/2024 8:58 AM EST Care Management Progress Note Received call from Pauline from MMO who is pt's Inpatient rd manager and she informed this TCC that pt's insurance is OON and should be transferred. Informed her per DOUGHNUT MACHINE OPERATOR HELPER note that DOUGHNUT MACHINE OPERATOR HELPER tried to transfer last evening and there were no beds available at [facility]. Met pt at bedside and updated him that his insurance told this TCC that [facility] is out of network with his insurance. Pt states he did NOT know this. Pt encouraged to reach out to his insurance for further explanation. Length of Stay (Days): 2 GMLOS: No GMLOS Documented * Care Plan - Tamiko Live RN - 07/30/2024 8:51 AM EST Problem: Pain - Adult Goal: Verbalizes/displays adequate comfort level or baseline comfort level Outcome: Progressing Problem: Safety - Adult Goal: Free from fall injury Outcome: Progressing Flowsheets (Taken 07/30/2024 0847) Free from fall injury: Instruct family/caregiver on patient safety Problem: Chronic Conditions and Co-morbidities Goal: Patient's chronic conditions and co-morbidity symptoms are monitored and maintained or improved Outcome: Progressing * Care Plan - Sue Schuler RN - 07/30/2024 2:42 AM EST Problem: Pain - Adult Goal: Verbalizes/displays adequate comfort level or baseline comfort level Outcome: Progressing Problem: Safety - Adult Goal: Free from fall injury Outcome: Progressing Problem: Discharge Planning Goal: Discharge to home or other facility with appropriate resources Outcome: Progressing Problem: Chronic Conditions and Co-morbidities Goal: Patient's chronic conditions and co-morbidity symptoms are monitored and maintained or improved Outcome: Progressing Flowsheets (Taken 07/29/20242003) Care Plan - Patient's Chronic Conditions and Co-Morbidity Symptoms are Monitored and Maintained or Improved: Monitor and assess patient's chronic conditions and comorbid symptoms for stability, deterioration,or improvement Collaborate with multidisciplinary team to address chronic and comorbid conditions and prevent exacerbation or deterioration Update acute care plan with appropriate goals if chronic or comorbid symptoms are exacerbated and prevent overall improvement and discharge Problem: Knowledge Deficit Goal: Patient/family/caregiver demonstrates understanding of disease process, treatment plan, medications, and discharge instructions Outcome: Progressing Problem: Hemodynamic Status Goal: Patient's vitals signs are stable Outcome: Progressing Problem: Excessive Fluid Volume Goal: Fluid and electrolyte balance are achieved/maintained Outcome: Progressing Problem: Inadequate Gas Exchange Goal: Patient is adequately oxygenated and ventilation is improved Outcome: Progressing Goal: Nutritional status is improving Outcome: Progressing Problem: Activity Intolerance/Impaired Mobility Goal: Mobility/activity is maintained at optimum level for patient Outcome: Progressing Problem: Nutrition Goal: Nutritional status is improving Outcome: Progressing * Significant Event - THOMAS Larson CNP - 07/29/2024 5:11 PM EST Called [facility] transfer line to see about transferring patient to them as he is apparently outof network. Was told that they have a waiting list for beds. Gave [facility] [place] patient information and will call back tomorrow to see where they are with beds. Patient likely will be discharged tomorrow. * Care Plan - Tamiko Live RN - 07/29/2024 10:51 AM EST Problem: Safety - Adult Goal: Free from fall injury Outcome: Progressing Flowsheets (Taken 07/29/2024 09) Free from fall injury: Instruct family/caregiver on patient safety Problem: Chronic Conditions and Co-morbidities Goal: Patient's chronic conditions and co-morbidity symptoms are monitored and maintained or improved Outcome: Progressing Flowsheets (Taken 07/29/2024 09) Care Plan - Patient's Chronic Conditions and Co-Morbidity Symptoms are Monitored and Maintained or Improved: Monitor and assess patient's chronic conditions and comorbid symptoms for stability, deterioration, or improvement Problem: Knowledge Deficit Goal: Patient/family/caregiver demonstrates understanding of disease process, treatment plan, medications, and discharge instructions Outcome: Progressing * Care Plan - Sue Schuler RN - 07/29/2024 1:21 AM EST Problem: Pain - Adult Goal: Verbalizes/displays adequate comfort level or baseline comfort level Outcome: Progressing Problem: Safety - Adult Goal: Free from fall injury Outcome: Progressing Problem: Discharge Planning Goal: Discharge to home or other facility with appropriate resources Outcome: Progressing Problem: Chronic Conditions and Co-morbidities Goal: Patient's chronic conditions and co-morbidity symptoms are monitored and maintained or improved Outcome: Progressing Flowsheets (Taken 07/28/20242021) Care Plan - Patient's Chronic Conditions and Co-Morbidity Symptoms are Monitored and Maintained or Improved: Monitor and assess patient's chronic conditions and comorbid symptoms for stability, deterioration,or improvement Collaborate with multidisciplinary team to address chronic and comorbid conditions and prevent exacerbation or deterioration Update acute care plan with appropriate goals if chronic or comorbid symptoms are exacerbated and prevent overall improvement and discharge Problem: Knowledge Deficit Goal: Patient/family/caregiver demonstrates understanding of disease process, treatment plan, medications, and discharge instructions Outcome: Progressing Problem: Hemodynamic Status Goal: Patient's vitals signs are stable Outcome: Progressing Problem: Excessive Fluid Volume Goal: Fluid and electrolyte balance are achieved/maintained Outcome: Progressing Problem: Inadequate Gas Exchange Goal: Patient is adequately oxygenated and ventilation is improved Outcome: Progressing Goal: Nutritional status is improving Outcome: Progressing Problem: Activity Intolerance/Impaired Mobility Goal: Mobility/activity is maintained at optimum level for patient Outcome: Progressing Problem: Nutrition Goal: Nutritional status is improving Outcome: Progressing * Medical Student - Nicole Cross - 07/28/2024 12:37 PM EST Hospitalist Progress Note 07/28/2024 Subjective: Admit Date: 07/23/2024 PCP: No primary care provider on file. Room#: B2-268/B2-268 A BRIEF HOSPITAL COURSE: Carlo is a 44 y.o. male with past medical history of heart failure with reduced ejection fraction, chronic kidney disease, left bundle branch block, hypertension, noncompliance behavior, history ofnon-ST elevation ND who presented to the emergency department with complaint of swelling in the legs and shortness of breath along with abnormal labs. Patient symptoms have been going on for last couple days and has been progressively getting worse. Patient had lab work done as an outpatient per cardiology recommendation. Patient was advised by them to double up on his diuretics as the swelling was persistent in his lower legs. Patient had gained 10 pounds since last admission about 1 week ago.Patient received a call from the cardiology office stating his renal function is getting worse. Patient continued to have worsening swelling and shortness of breath and was advised to come to the emergency department for further evaluation 07/25/24 Per cardiology continue 80mg IV Lasix BID and Metolazone 5 mg daily, strict I&Os, has life vest at home, not wearing it, refusing lab draws, meds, non compliance, palliative consulted, 5 admits in 202307/26/24: No overnight issues. Patient refusing daily labs. Discussed with patient importance of daily labs to monitor renal function. Patient resting in bed, NAD. Patient reports urinary frequency but discussed with patient this is due to diuresis with BID Lasix. Patient reports this is annoying but educated that it is necessary to maintain his cardiac function. Nephrology consulted today by cardiology as SCHUYLER on CKD is limiting cardiac treatment options. 07/27/24: No overnight issues. Patient seen and examined in room. Patient resting in bed, NAD. Continues to be followed by cardiology and nephrology, appreciate their recommendations. Patient denies chest pain, SOB, N/V/D, and denies fever/chills. Bilateral legs wrapped, swelling improved but still present. Interval History: 07/28/24: No overnight issues. Patient resting in bed, NAD. Patient continues to be followed closelywith cardiology and nephrology. Counseled patient on importance of treatment compliance as he wouldonly take half (40 mg) the dose of ordered IV Lasix. Patient verbalized understanding. Denies chestpain, SOB, N/V/D. Denies chest pain. Case and plan discussed with patient and bedside nurse. All questions answered. Adult diet Regular; Low Sodium (2 gm); 1800 ml 24HR INTAKE/OUTPUT: Intake/Output Summary (Last 24 hours) at 07/28/2024 1237 Last data filed at 07/28/2024 0900 Gross per 24 hour Intake 360 ml Output 3500 ml Net -3140 ml Past Medical History: Past Medical History: Diagnosis Date Acute HFrEF (heart failure with reduced ejection fraction) ([facility]) 06/13/2024 Acute kidney injury superimposed on CKD ([facility]) ([facility]) 07/03/2024 At risk for obstructive sleep apnea 05/31/2024 o/p sleep study recommended during admission CHF (congestive heart failure) ([facility]) CKD (chronic kidney disease) HFrEF (heart failure with reduced ejection fraction) ([facility]) 04/28/2024 History of left bundle branch block (LBBB) 06/19/2024 Hypercholesteremia Hypertension Noncompliance 06/19/2024 NSTEMI (non-ST elevated myocardial infarction) ([facility]) 07/11/2024 Pulmonary vascular congestion 04/28/2024 Sinus tachycardia 06/19/2024 LABS: CBC: Recent Labs 07/26/24 0907 07/27/24 0103 07/28/24 0603 WBC 5.5 5.7 5.6 RBC 4.24* 4.16* 4.33* HGB 14.1 13.8 14.3 HCT 43.0 42.4 44.8 MCV 101.4* 101.9* 103.5* RDW 13.4 13.3 13.2 PLT 240 241 225 BMP: Recent Labs 07/26/24 0907 07/27/24 0103 07/28/24 0603 NA 138 140 140 K 3.4* 3.6 3.5 CL 103 102 99 CO2 23 24 31* BUN 40* 35* 29* CREATININE 2.14* 1.84* 1.66* GLUCOSE 114* 95 97 CALCIUM 8.5 8.4 8.3* ANIONGAP 12 14* 10 LIVER PROFILE: Recent Labs 07/26/24 0907 07/27/24 0103 07/28/24 0603 AST 27 31 26 ALT 57* 60* 49* BILITOT 1.4* 1.3* 1.6* ALKPHOS 166* 175* 153* PROT 5.9* 6.3* 6.1* PT/INR: No results for input(s): PROTIME, INR in the last 72 hours. CARDIAC ENZYMES: No results for input(s): TROPONINI in the last 72 hours. Procalcitonin: No results found for: PROCAL COVID-19 PCR: No results for input(s): COVID19 in the last 72 hours. Objective: Vitals: BP 107/79 Pulse 99 Temp 37.2 C (98.9 F) (Temporal) Resp 16 Wt 167 lb (75.8 kg) SpO2 99% BMI 22.03 kg/m Pulse Ox: SpO2 Av.5 % Min: 96 % Max: 100 % Supplemental O2: Physical Exam Vitals and nursing note reviewed. Constitutional: Appearance: Normal appearance. HENT: Head: Normocephalic and atraumatic. Nose: Nose normal. Mouth/Throat: Mouth: Mucous membranes are moist. Eyes: Extraocular Movements: Extraocular movements intact. Conjunctiva/sclera: Conjunctivae normal. Pupils: Pupils are equal, round, and reactive to light. Cardiovascular: Pulses: Normal pulses. Heart sounds: Normal heart sounds. Pulmonary: Effort: Pulmonary effort is normal. Breath sounds: Normal breath sounds. Abdominal: General: Bowel sounds are normal. Musculoskeletal: General: Normal range of motion. Cervical back: Normal range of motion. Right lower leg: Edema present. Left lower leg: Edema present. Skin: General: Skin is warm and dry. Capillary Refill: Capillary refill takes less than 2 seconds. Neurological: Mental Status: He is alert and oriented to person, place, and time. Psychiatric: Mood and Affect: Mood normal. Medications: Scheduled PRN apixaban, 5 mg, Oral, BID carvedilol, 25 mg, Oral, BID WC cholecalciferol, 4,000 Units, Oral, Daily furosemide, 80 mg, IntraVENous, BID magnesium sulfate, 2,000 mg, IntraVENous, Once metOLazone, 5 mg, Oral, Daily [Held by provider] sacubitril-valsartan, 1 tablet, Oral, BID sodium bicarbonate, 1,300 mg, Oral, BID PRN medications: acetaminophen OR acetaminophen, ondansetron ODT OR ondansetron, polyethylene glycol (PEG) 3350 Continuous Assessment Data: Acute, acute on chronic, unstable/uncontrolled chronic problems/diagnoses: HFrEF- TTE 05/2024 EF 20% Non ischemic cardiomyopathy SCHUYLER with history of CKD Chronic transaminitis- continue to monitor with daily labs Hypomagnesemia Shortness of breath Persistent leg edema Stable chronic problems affecting care, new non-acute diagnoses: History of CAD Left heart catheterization 06/17/24, no interventions needed LBBB NSTEMI Hyperlipidemia DVT Noncompliance behavior Plan As a result of the above findings & factors, the following mgmt was pursued: - Hx of noncompliance, frequent admissions for SOB and edema - Cardiology consulted, appreciate recommendations; diuresis with 80 mg IV Lasix BID, Coreg 25 mg BID, held Entresto due to renal insufficiency, continue Metolazone but patient is refusing to take - Nephrology consulted, limited medical therapy 2/2 CKD, appreciate recommendations - Patient refusing half his dose of IV lasix this morning - Counseled on importance of treatment compliance, verbalized understanding - Continue to monitor daily weight diuresis monitoring - Monitor renal and liver function with daily labs, Cr improved to 1.66 today - LFTs improving - Magnesium 1.5 today, patient refused replacement - BNP continuing to improve, today 17,152 - Continue to attempt daily labs - Supplemental O2 as needed - Low Na cardiac diet - Nursing to apply lucrecia wrap to bilateral lower extremities daily, and remove at night - am labs, replace lytes prn - PT/OT/CM/SW - delirium precautions: increase activity and limit nighttime disturbances - DVT prophylaxis: encourage ambulation and already anticoagulated Complexity: Chronic illness with mild to moderate exacerbation, progression, or side effect of tx (MOD). Risk: Prescription drug/IVF/colloid was initiated, discontinued, adjusted; or reviewed with decision to maintain current orders (MOD). Advance Directive: Full Code Anticipated Discharge - Date - TBD - Location - Home - Pending the following - symptom improvement and optimization of treatment by cardiology and nephrology Extended Emergency Contact Information Primary Emergency Contact: KurtLilianaKaitlin Mobile Relation: Significant Other Secondary Emergency Contact: Indira Medina Mobile Relation: Sister Nicole Cross Division of Hospitalist Medicine Acute care [facility] Cosigned by THOMAS Carlos CNP at 07/28/2024 2:36 PM EST * Care Plan - Phyllis Luna RN - 07/28/2024 10:51 AM EST Problem: Chronic Conditions and Co-morbidities Goal: Patient's chronic conditions and co-morbidity symptoms are monitored and maintained or improved 07/28/2024 1050 by Phyllis Luna RN Outcome: Progressing 07/28/2024 1048 by Phyllis Luna RN Outcome: Progressing Problem: Hemodynamic Status Goal: Patient's vitals signs are stable Outcome: Progressing Problem: Excessive Fluid Volume Goal: Fluid and electrolyte balance are achieved/maintained Outcome: Progressing Problem: Inadequate Gas Exchange Goal: Patient is adequately oxygenated and ventilation is improved Outcome: Progressing * Care Plan - Leatha Lancaster RN - 07/28/2024 1:01 AM EST Problem: Pain - Adult Goal: Verbalizes/displays adequate comfort level or baseline comfort level Outcome: Progressing Problem: Safety - Adult Goal: Free from fall injury Outcome: Progressing Problem: Discharge Planning Goal: Discharge to home or other facility with appropriate resources Outcome: Progressing Problem: Chronic Conditions and Co-morbidities Goal: Patient's chronic conditions and co-morbidity symptoms are monitored and maintained or improved Outcome: Progressing Problem: Knowledge Deficit Goal: Patient/family/caregiver demonstrates understanding of disease process, treatment plan, medications, and discharge instructions Outcome: Progressing Problem: Hemodynamic Status Goal: Patient's vitals signs are stable Outcome: Progressing Problem: Excessive Fluid Volume Goal: Fluid and electrolyte balance are achieved/maintained Outcome: Progressing Problem: Inadequate Gas Exchange Goal: Patient is adequately oxygenated and ventilation is improved Outcome: Progressing Goal: Nutritional status is improving Outcome: Progressing Problem: Activity Intolerance/Impaired Mobility Goal: Mobility/activity is maintained at optimum level for patient Outcome: Progressing Problem: Nutrition Goal: Nutritional status is improving Outcome: Progressing * Care Coordination - Narcisa Tavarez RN - 07/27/2024 3:32 PM EST Pt admitted for SCHUYLER. Chart reviewed. Pt has been admitted to [facility] several times with in the past month. Has a history of non-compliance. Cardiology, nephrology, and palliative following. Receiving IV Lasix. Cr improving at this time. Pt will not qualify for [facility] due to no PCP. Discharge plan will be home when medically ready. product communications manager to follow and assist as needed. * Medical Student - Nicole Cross - 07/27/2024 12:03 PM EST Hospitalist Progress Note 07/27/2024 Subjective: Admit Date: 07/23/2024 PCP: No primary care provider on file. Room#: B2268/[id number] A BRIEF HOSPITAL COURSE: Carlo is a 44 y.o. male with past medical history of heart failure with reduced ejection fraction, chronic kidney disease, left bundle branch block, hypertension, noncompliance behavior, history ofnon-ST elevation ND who presented to the emergency department with complaint of swelling in the legs and shortness of breath along with abnormal labs. Patient symptoms have been going on for last couple days and has been progressively getting worse. Patient had lab work done as an outpatient per cardiology recommendation. Patient was advised by them to double up on his diuretics as the swelling was persistent in his lower legs. Patient had gained 10 pounds since last admission about 1 week ago.Patient received a call from the cardiology office stating his renal function is getting worse. Patient continued to have worsening swelling and shortness of breath and was advised to come to the emergency department for further evaluation 07/25/24 Per cardiology continue 80mg IV Lasix BID and Metolazone 5 mg daily, strict I&Os, has life vest at home, not wearing it, refusing lab draws, meds, non compliance, palliative consulted, 5 admits in 202307/26/24: No overnight issues. Patient refusing daily labs. Discussed with patient importance of daily labs to monitor renal function. Patient resting in bed, NAD. Patient reports urinary frequency but discussed with patient this is due to diuresis with BID Lasix. Patient reports this is annoying but educated that it is necessary to maintain his cardiac function. Nephrology consulted today by cardiology as SCHUYLER on CKD is limiting cardiac treatment options. Interval History: 07/27/24: No overnight issues. Patient seen and examined in room. Patient resting in bed, NAD. Continues to be followed by cardiology and nephrology, appreciate their recommendations. Patient denies chest pain, SOB, N/V/D, and denies fever/chills. Bilateral legs wrapped, swelling improved but still present. Case and plan discussed with patient and bedside nurse. All questions answered. Adult diet Regular; Low Sodium (2 gm); 1800 ml 24HR INTAKE/OUTPUT: Intake/Output Summary (Last 24 hours) at 07/27/2024 1203 Last data filed at 07/26/2024 2356 Gross per 24 hour Intake 600 ml Output 3900 ml Net -3300 ml Past Medical History: Past Medical History: Diagnosis Date Acute HFrEF (heart failure with reduced ejection fraction) ([facility]) 06/13/2024 Acute kidney injury superimposed on CKD ([facility]) ([facility]) 07/03/2024 At risk for obstructive sleep apnea 05/31/2024 o/p sleep study recommended during admission CHF (congestive heart failure) ([facility]) CKD (chronic kidney disease) HFrEF (heart failure with reduced ejection fraction) ([facility]) 04/28/2024 History of left bundle branch block (LBBB) 06/19/2024 Hypercholesteremia Hypertension Noncompliance 06/19/2024 NSTEMI (non-ST elevated myocardial infarction) ([facility]) 07/11/2024 Pulmonary vascular congestion 04/28/2024 Sinus tachycardia 06/19/2024 LABS: CBC: Recent Labs 07/26/24 0907 07/27/24 0103 WBC 5.5 5.7 RBC 4.24* 4.16* HGB 14.1 13.8 HCT 43.0 42.4 MCV 101.4* 101.9* RDW 13.4 13.3 PLT 240 241 BMP: Recent Labs 07/26/24 0907 07/27/24 0103 NA 138 140 K 3.4* 3.6 CL 103 102 CO2 23 24 BUN 40* 35* CREATININE 2.14* 1.84* GLUCOSE 114* 95 CALCIUM 8.5 8.4 ANIONGAP 12 14* LIVER PROFILE: Recent Labs 07/26/24 0907 07/27/24 0103 AST 27 31 ALT 57* 60* BILITOT 1.4* 1.3* ALKPHOS 166* 175* PROT 5.9* 6.3* PT/INR: No results for input(s): PROTIME, INR in the last 72 hours. CARDIAC ENZYMES: No results for input(s): TROPONINI in the last 72 hours. Procalcitonin: No results found for: PROCAL COVID-19 PCR: No results for input(s): COVID19 in the last 72 hours. Objective: Vitals: BP 114/86 Pulse 107 Temp 36.6 C (97.8 F) (Temporal) Resp 17 Wt 182 lb (82.6 kg) SpO2 93% BMI 24.01 kg/m Pulse Ox: SpO2 Av % Min: 93 % Max: 99 % Supplemental O2: none Physical Exam Vitals and nursing note reviewed. Constitutional: Appearance: Normal appearance. HENT: Head: Normocephalic and atraumatic. Nose: Nose normal. Eyes: Extraocular Movements: Extraocular movements intact. Conjunctiva/sclera: Conjunctivae normal. Pupils: Pupils are equal, round, and reactive to light. Cardiovascular: Pulses: Normal pulses. Heart sounds: Normal heart sounds. Pulmonary: Effort: Pulmonary effort is normal. Breath sounds: Normal breath sounds. Abdominal: General: Bowel sounds are normal. Musculoskeletal: General: Normal range of motion. Cervical back: Normal range of motion. Right lower leg: Edema present. Left lower leg: Edema present. Skin: General: Skin is warm and dry. Capillary Refill: Capillary refill takes less than 2 seconds. Neurological: Mental Status: He is alert and oriented to person, place, and time. Psychiatric: Mood and Affect: Mood normal. Behavior: Behavior normal. Medications: Scheduled PRN apixaban, 5 mg, Oral, BID carvedilol, 25 mg, Oral, BID WC cholecalciferol, 4,000 Units, Oral, Daily furosemide, 80 mg, IntraVENous, BID metOLazone, 5 mg, Oral, Daily [Held by provider] sacubitril-valsartan, 1 tablet, Oral, BID sodium bicarbonate, 1,300 mg, Oral, BID PRN medications: acetaminophen OR acetaminophen, ondansetron ODT OR ondansetron, polyethylene glycol (PEG) 3350 Continuous Assessment Data: Acute, acute on chronic, unstable/uncontrolled chronic problems/diagnoses: HFrEF- TTE 05/2024 EF 20% Non ischemic cardiomyopathy SCHUYLER with history of CKD Chronic transaminitis- continue to monitor with daily labs Shortness of breath Persistent leg edema Stable chronic problems affecting care, new non-acute diagnoses: History of CAD Left heart catheterization 06/17/24, no interventions needed LBBB NSTEMI Hyperlipidemia DVT Noncompliance behavior Plan As a result of the above findings & factors, the following mgmt was pursued: - Hx of noncompliance, frequent admissions for SOB and edema - Cardiology consulted, appreciate recommendations; diuresis with 80 mg IV Lasix BID, Coreg 25 mg BID, held Entresto due to renal insufficiency, continue Metolazone but patient is refusing to take - Nephrology consulted, limited medical therapy 2/2 CKD, appreciate recommendations - Continue to monitor daily weight diuresis monitoring - Monitor renal and liver function with daily labs, Cr improved to 1.84 today - Continue to attempt daily labs - Supplemental O2 as needed - Low Na cardiac diet - Nursing to apply lucrecia wrap to bilateral lower extremities daily, and remove at night - am labs, replace lytes prn - PT/OT/CM/SW - delirium precautions: increase activity and limit nighttime disturbances - DVT prophylaxis: encourage ambulation and already anticoagulated Complexity: Chronic illness with mild to moderate exacerbation, progression, or side effect of tx (MOD). Risk: Prescription drug/IVF/colloid was initiated, discontinued, adjusted; or reviewed with decision to maintain current orders (MOD). Advance Directive: Full Code Anticipated Discharge - Date - TBD - Location - Home - Pending the following - symptom improvement and optimization of treatment by cardiology and nephrology Extended Emergency Contact Information Primary Emergency Contact: Kaitlin Hicks Mobile Relation: Significant Other Secondary Emergency Contact: Indira Medina Mobile Relation: Sister Nicole Cross Division of Hospitalist Medicine [facility] Cosigned by THOMAS Carlos CNP at 07/28/2024 2:36 PM EST * Care Plan - King Lucas RN - 07/27/2024 12:26 AM EST Problem: Chronic Conditions and Co-morbidities Goal: Patient's chronic conditions and co-morbidity symptoms are monitored and maintained or improved Outcome: Progressing Flowsheets (Taken 07/27/2024 0026) Care Plan - Patient's Chronic Conditions and Co-Morbidity Symptoms are Monitored and Maintained or Improved: Monitor and assess patient's chronic conditions and comorbid symptoms for stability, deterioration,or improvement Collaborate with multidisciplinary team to address chronic and comorbid conditions and prevent exacerbation or deterioration Update acute care plan with appropriate goals if chronic or comorbid symptoms are exacerbated and prevent overall improvement and discharge Problem: Excessive Fluid Volume Goal: Fluid and electrolyte balance are achieved/maintained Outcome: Progressing * Medical Student - Nicole Cross - 07/26/2024 1:22 PM EST Hospitalist Progress Note 07/26/2024 Subjective: Admit Date: 07/23/2024 PCP: No primary care provider on file. Room#: B2-268/B2-268 A BRIEF HOSPITAL COURSE: Carlo is a 44 y.o. male with past medical history of heart failure with reduced ejection fraction, chronic kidney disease, left bundle branch block, hypertension, noncompliance behavior, history ofnon-ST elevation ND who presented to the emergency department with complaint of swelling in the legs and shortness of breath along with abnormal labs. Patient symptoms have been going on for last couple days and has been progressively getting worse. Patient had lab work done as an outpatient per cardiology recommendation. Patient was advised by them to double up on his diuretics as the swelling was persistent in his lower legs. Patient had gained 10 pounds since last admission about 1 week ago.Patient received a call from the cardiology office stating his renal function is getting worse. Patient continued to have worsening swelling and shortness of breath and was advised to come to the emergency department for further evaluation 07/25/24 Per cardiology continue 80mg IV Lasix BID and Metolazone 5 mg daily, strict I&Os, has life vest at home, not wearing it, refusing lab draws, meds, non compliance, palliative consulted, 5 admits in 2023 Interval History: 07/26/24: No overnight issues. Patient refusing daily labs. Discussed with patient importance of daily labs to monitor renal function. Patient resting in bed, NAD. Patient reports urinary frequency but discussed with patient this is due to diuresis with BID Lasix. Patient reports this is annoying but educated that it is necessary to maintain his cardiac function. Nephrology consulted today by cardiology as SCHUYLER on CKD is limiting cardiac treatment options. Case and plan discussed with patient and bedside nurse. All questions answered. Adult diet Regular; Low Sodium (2 gm) 24HR INTAKE/OUTPUT: Intake/Output Summary (Last 24 hours) at 07/26/2024 1322 Last data filed at 07/26/2024 1310 Gross per 24 hour Intake 200 ml Output 6300 ml Net -6100 ml Past Medical History: Past Medical History: Diagnosis Date Acute HFrEF (heart failure with reduced ejection fraction) ([facility]) 06/13/2024 Acute kidney injury superimposed on CKD ([facility]) ([facility]) 07/03/2024 At risk for obstructive sleep apnea 05/31/2024 o/p sleep study recommended during admission CHF (congestive heart failure) ([facility]) CKD (chronic kidney disease) HFrEF (heart failure with reduced ejection fraction) ([facility]) 04/28/2024 History of left bundle branch block (LBBB) 06/19/2024 Hypercholesteremia Hypertension Noncompliance 06/19/2024 NSTEMI (non-ST elevated myocardial infarction) ([facility]) 07/11/2024 Pulmonary vascular congestion 04/28/2024 Sinus tachycardia 06/19/2024 LABS: CBC: Recent Labs 07/23/24 2127 07/24/24 0600 07/26/24 0907 WBC 8.8 7.4 5.5 RBC 4.55 4.34* 4.24* HGB 15.2 14.4 14.1 HCT 46.5 45.0 43.0 MCV 102.2* 103.7* 101.4* RDW 13.8 13.9 13.4 PLT 255 225 240 BMP: Recent Labs 07/24/24 0243 07/24/24 0600 07/26/24 0907 NA 138 138 138 K 4.4 4.3 3.4* CL 107 108* 103 CO2 19* 20* 23 BUN 37* 38* 40* CREATININE 1.98* 2.19* 2.14* GLUCOSE 107* 108* 114* CALCIUM 8.3* 8.5 8.5 ANIONGAP 12 10 12 LIVER PROFILE: Recent Labs 07/26/24 0907 AST 27 ALT 57* BILITOT 1.4* ALKPHOS 166* PROT 5.9* PT/INR: No results for input(s): PROTIME, INR in the last 72 hours. CARDIAC ENZYMES: No results for input(s): TROPONINI in the last 72 hours. Procalcitonin: No results found for: PROCAL COVID-19 PCR: No results for input(s): COVID19 in the last 72 hours. Objective: Vitals: BP 96/80 Pulse 107 Temp 36.4 C (97.6 F) (Temporal) Resp 20 Wt 182 lb (82.6 kg) SpO2 100% BMI 24.01 kg/m Pulse Ox: SpO2 Av.3 % Min: 93 % Max: 100 % Supplemental O2: Physical Exam Vitals and nursing note reviewed. Constitutional: Appearance: Normal appearance. HENT: Head: Normocephalic and atraumatic. Nose: Nose normal. Mouth/Throat: Mouth: Mucous membranes are moist. Eyes: Extraocular Movements: Extraocular movements intact. Conjunctiva/sclera: Conjunctivae normal. Pupils: Pupils are equal, round, and reactive to light. Cardiovascular: Pulses: Normal pulses. Heart sounds: Normal heart sounds. Pulmonary: Effort: Pulmonary effort is normal. Breath sounds: Normal breath sounds. Abdominal: General: Bowel sounds are normal. Musculoskeletal: General: Normal range of motion. Cervical back: Normal range of motion. Right lower leg: Edema present. Left lower leg: Edema present. Skin: General: Skin is warm and dry. Capillary Refill: Capillary refill takes less than 2 seconds. Neurological: Mental Status: He is alert and oriented to person, place, and time. Psychiatric: Mood and Affect: Mood normal. Behavior: Behavior normal. Medications: Scheduled PRN apixaban, 5 mg, Oral, BID carvedilol, 25 mg, Oral, BID WC cholecalciferol, 4,000 Units, Oral, Daily furosemide, 80 mg, IntraVENous, BID metOLazone, 5 mg, Oral, Daily [Held by provider] sacubitril-valsartan, 1 tablet, Oral, BID sodium bicarbonate, 1,300 mg, Oral, BID PRN medications: acetaminophen OR acetaminophen, ondansetron ODT OR ondansetron, polyethylene glycol (PEG) 3350 Continuous Assessment Data: Acute, acute on chronic, unstable/uncontrolled chronic problems/diagnoses: HFrEF- TTE 05/2024 EF 20% Non ischemic cardiomyopathy SCHUYLER with history of CKD Shortness of breath Persistent leg edema Stable chronic problems affecting care, new non-acute diagnoses: History of CAD Left heart catheterization 06/17/24, no interventions needed LBBB NSTEMI Hyperlipidemia DVT Noncompliance behavior Plan As a result of the above findings & factors, the following mgmt was pursued: - Hx of noncompliance, frequent admissions for SOB and edema - Cardiology consulted, appreciate recommendations; diuresis with 80 mg IV Lasix BID, Coreg 25 mg BID, held Entresto due to renal insufficiency, started Metolazone yesterday but patient is refusing to take - Nephrology consulted, limited medical therapy 2/2 CKD, appreciate recommendations - Continue to monitor daily weight diuresis monitoring - Monitor renal function with daily labs - Continue to attempt daily labs - Supplemental O2 as needed - Low Na cardiac diet - Nursing to apply lucrecia wrap to bilateral lower extremities daily, and remove at night - am labs, replace lytes prn - PT/OT/CM/SW - delirium precautions: increase activity and limit nighttime disturbances - DVT prophylaxis: SCDs, encourage ambulation, and already anticoagulated Complexity: Chronic illness with mild to moderate exacerbation, progression, or side effect of tx (MOD). Risk: Prescription drug/IVF/colloid was initiated, discontinued, adjusted; or reviewed with decision to maintain current orders (MOD). Advance Directive: Full Code Anticipated Discharge - Date - TBD - Location - Home - Pending the following - symptom improvement Extended Emergency Contact Information Primary Emergency Contact: Kaitlin Hicks Mobile Relation: Significant Other Secondary Emergency Contact: Indira Medina Mobile Relation: Sister Nicole Cross Division of Hospitalist Medicine [facility] Cosigned by Berenice Rosenthal APRN - VIKKI at 07/28/2024 2:35 PM EST * Nurse Navigation Note - Dia Gaitan RN - 07/26/2024 10:20 AM EST HF booster pump oiler: Chart reviewed. Pt admitted with acute chronic HFrEF. Cardiology and Nephrology following, diuresing and adjusting GDMT as able. GDMT limited by renal function, hyperkalemia and pt intermittently refusing care (labs, meds, etc.) Pt well known to HFN from frequent HF hospitalizations 2/2 poor health literacy/continued noncompliance with HF GDMT and treatment plan. HF action plan added to AVS. Recommendations (see below for screenings): - S.C. request sent to the Hardening Machine Operator Management team to complete serial telephone outreaches to pt with a focus on reinforcing all HF education and importance of HF GDMT and follow up compliance. - Pt with history of refusing transfer from [facility] to [facility] while hospitalized. Recommend confirming pt is agreeable to follow up with [facility]. If unable or pt does not wish to come to [facility], recommend continued follow up at [facility]. Heart Failure Accreditation Quality Metrics All Clinical Practice Guidelines and references available on the [email or web address] Heart Failure resource page (Resources --> [facility] --> Heart Failure) Established Bending Shed Worker: Dr. Zhang/Yulissa Ulloa NP Follow up scheduled within 14 days: Yes- referral previously placed to the [facility]- scheduled to see Dr. Astudillo on 07/28 at 9:30AM. LVEF evaluation within the past 12 months: Yes NYHA class documentation by provider: Yes HF order set used: Yes Daily weight ordered:Yes Intake and output ordered: Yes HF education added: Yes HF care plan added: Yes Class 1 HFrEF GDMT- limited d/t SCHUYLER on CKD3 and hyperkalemia (Treatment pathway available on [facility] Heart Failure resource page) LUCRECIA/ARB/ARNI: No (HD Entresto BID on hold) BB: Yes, carvedilol 25mg BID MRA: No SGLT2-I: No Diuretic: Yes- 80mg IV lasix BID (40gm PO lasix daily GRAVE DIGGER) Hydral/ISDN: N/A HRIS ANALYST-D Appropriateness Screen- N/A- Noncompliant with Lifevest and GDMT Cardiac Rehab - Referral could be considered for HFrEF Heart Failure Triggers for Consult to Palliative Care- appropriately following * Care Plan - Raj Chilel RN - 07/26/2024 8:55 AM EST Problem: Pain - Adult Goal: Verbalizes/displays adequate comfort level or baseline comfort level Outcome: Progressing Problem: Safety - Adult Goal: Free from fall injury Outcome: Progressing Problem: Discharge Planning Goal: Discharge to home or other facility with appropriate resources Outcome: Progressing Problem: Chronic Conditions and Co-morbidities Goal: Patient's chronic conditions and co-morbidity symptoms are monitored and maintained or improved Outcome: Progressing Problem: Knowledge Deficit Goal: Patient/family/caregiver demonstrates understanding of disease process, treatment plan, medications, and discharge instructions Outcome: Progressing Problem: Hemodynamic Status Goal: Patient's vitals signs are stable Outcome: Progressing Problem: Excessive Fluid Volume Goal: Fluid and electrolyte balance are achieved/maintained Outcome: Progressing Problem: Inadequate Gas Exchange Goal: Patient is adequately oxygenated and ventilation is improved Outcome: Progressing Goal: Nutritional status is improving Outcome: Progressing Problem: Activity Intolerance/Impaired Mobility Goal: Mobility/activity is maintained at optimum level for patient Outcome: Progressing Problem: Nutrition Goal: Nutritional status is improving Outcome: Progressing * Care Plan - Osiris Huber RN - 07/26/2024 3:54 AM EST Problem: Pain - Adult Goal: Verbalizes/displays adequate comfort level or baseline comfort level Outcome: Progressing Problem: Safety - Adult Goal: Free from fall injury Outcome: Progressing Problem: Chronic Conditions and Co-morbidities Goal: Patient's chronic conditions and co-morbidity symptoms are monitored and maintained or improved Outcome: Progressing * Care Plan - Slime Lange RN - 07/24/2024 5:26 PM EST Problem: Pain - Adult Goal: Verbalizes/displays adequate comfort level or baseline comfort level 07/24/2024 1726 by Slime Lange RN Outcome: Progressing 07/24/2024 1458 by Slime Lange RN Outcome: Progressing Problem: Safety - Adult Goal: Free from fall injury 07/24/2024 172 by Slime Lange RN Outcome: Progressing 07/24/2024 1458 by Slime Lange RN Outcome: Progressing Problem: Discharge Planning Goal: Discharge to home or other facility with appropriate resources 07/24/2024 172 by Slime Lange RN Outcome: Progressing 07/24/2024 1458 by Slime Lange RN Outcome: Progressing Problem: Chronic Conditions and Co-morbidities Goal: Patient's chronic conditions and co-morbidity symptoms are monitored and maintained or improved 07/24/2024 172 by Slime Lange RN Outcome: Progressing 07/24/2024 1458 by Slime Lange RN Outcome: Progressing Problem: Knowledge Deficit Goal: Patient/family/caregiver demonstrates understanding of disease process, treatment plan, medications, and discharge instructions 07/24/2024 172 by Slime Lange RN Outcome: Progressing 07/24/2024 1458 by Slime Lange RN Outcome: Progressing Problem: Hemodynamic Status Goal: Patient's vitals signs are stable 07/24/2024 172 by Slime Lange RN Outcome: Progressing 07/24/2024 1458 by Slime Lange RN Outcome: Progressing Problem: Excessive Fluid Volume Goal: Fluid and electrolyte balance are achieved/maintained 07/24/2024 172 by Slime Lange RN Outcome: Progressing 07/24/2024 1458 by Slime Lange RN Outcome: Progressing Problem: Inadequate Gas Exchange Goal: Patient is adequately oxygenated and ventilation is improved 07/24/2024 172 by Slime Lange RN Outcome: Progressing 07/24/2024 1458 by Slime Lange RN Outcome: Progressing Goal: Nutritional status is improving 07/24/2024 1726 by Slime Lange RN Outcome: Progressing 07/24/2024 1458 by Slmie Lange RN Outcome: Progressing Problem: Activity Intolerance/Impaired Mobility Goal: Mobility/activity is maintained at optimum level for patient 07/24/2024 1726 by Slime Lange RN Outcome: Progressing 07/24/2024 1458 by Slime Lange RN Outcome: Progressing Problem: Nutrition Goal: Nutritional status is improving 07/24/2024 1726 by Slime Lange RN Outcome: Progressing 07/24/2024 1458 by Slime Lange RN Outcome: Progressing * Care Plan - Slime Lange RN - 07/24/2024 2:58 PM EST Problem: Pain - Adult Goal: Verbalizes/displays adequate comfort level or baseline comfort level Outcome: Progressing Problem: Safety - Adult Goal: Free from fall injury Outcome: Progressing Problem: Discharge Planning Goal: Discharge to home or other facility with appropriate resources Outcome: Progressing Problem: Chronic Conditions and Co-morbidities Goal: Patient's chronic conditions and co-morbidity symptoms are monitored and maintained or improved Outcome: Progressing Problem: Knowledge Deficit Goal: Patient/family/caregiver demonstrates understanding of disease process, treatment plan, medications, and discharge instructions Outcome: Progressing Problem: Hemodynamic Status Goal: Patient's vitals signs are stable Outcome: Progressing Problem: Excessive Fluid Volume Goal: Fluid and electrolyte balance are achieved/maintained Outcome: Progressing Problem: Inadequate Gas Exchange Goal: Patient is adequately oxygenated and ventilation is improved Outcome: Progressing Goal: Nutritional status is improving Outcome: Progressing Problem: Activity Intolerance/Impaired Mobility Goal: Mobility/activity is maintained at optimum level for patient Outcome: Progressing Problem: Nutrition Goal: Nutritional status is improving Outcome: Progressing documented in this [facility]01-31-2025 Note* Care Coordination - Brittany Alston RN - 07/30/2024 11:28 AM EST Care Management Progress Note Received another call from [facility] Inpatient Boring Machine Set Up Operator Jig telling me that DOUGHNUT MACHINE OPERATOR HELPER needs to call back transfer center today at [facility] even if pt gets DCED today and fax demographics. Secure chatted Adri Loaiza NPand updated that insurance is requesting she call transfer line and to obtain fax where demos can be faxed per MMO request. Obtained [facility] fax number from DOUGHNUT MACHINE OPERATOR HELPER [phone] and demos faxed as requested. Length of Stay (Days): 2 GMLOS: No GMLOS [facility]ed [id number]* Care Coordination - Brittany Alston RN - 07/30/2024 11:28 AM EST Care Management Progress Note Received another call from [facility] Inpatient Boring Machine Set Up Operator Jig telling me that DOUGHNUT MACHINE OPERATOR HELPER needs to call back transfer center today at [facility] even if pt gets DCED today and fax demographics. Secure chatted Adri Loaiza NPand updated that insurance is requesting she call transfer line and to obtain fax where demos can be faxed per O request. Obtained [facility] fax number from DOUGHNUT MACHINE OPERATOR HELPER [phone] and demos faxed as requested. Length of Stay (Days): 2 GMLOS: No GMLOS [facility]ed [id number]01-31-2025 Hospital course Narrative* Lilibeth Huber APRN - VIKKI - 07/30/2024 11:05 AM EST Hospitalist Discharge Summary Carlo Medina : 1980 Admit date: 07/23/2024 Discharge date: 07/30/2024 Admitting Physician: Darrell Kohler MD Primary Care Physician: No primary care provider on file. Visit Status: inpatient Code Status: Full Code BRIEF HOSPITAL COURSE: Carlo is a 44 y.o. male with past medical history significant for heart failure with reduced ejection fraction, chronic kidney disease, left bundle branch block, hypertension, noncompliance behavior, history of non-ST elevation ND who presented to the emergency room with complaint of swelling in the legs and shortness of breath along with abnormal labs. Patient symptoms have been going on for last couple days and has been progressively getting worse. Patient got lab work done as an outpatientper cardiology recommendation. Patient was advised by them to double up on his diuretics as the swelling was persistent in the legs. Patient had gained 10 pounds since last admission about 1 week ago. Patient received a call from the cardiology office stating the renal function is getting worse. Patient continued to have worsening swelling and shortness of breath and was advised to come to the emergency room for further evaluation Acute, acute on chronic, unstable/uncontrolled chronic problems/discharge diagnoses: 1.Acute/chronic heart failure - EF 20%, cardiology following , 40 mg PO lasix BID, coreg 25 mg BID,Losartan 25 mg daily, Carvedilol 25 mg BID 2.SCHUYLER on CKD- nephrology following , creatinine improved to his baseline 3. Non sustained VT- refuses ICD, life vest, refuses ICD evaluation 4. Hypomagnesemia - refuses IV replacement , mag level 1.3, on 400 oral magnesium , labs in 5 days outpatient 5. Hypokalemia - will go home on 40 mEq daily, refused to have level rechecked, labs to check in 5 days Stable chronic problems affecting care, new non-acute discharge diagnoses: DVT LE- remains on Eliquis LBBB CAD HPL Hx NSTEMI Non compliance Past Medical History: Diagnosis Date Acute HFrEF (heart failure with reduced ejection fraction) ([facility]) 06/13/2024 Acute kidney injury superimposed on CKD ([facility]) ([facility]) 07/03/2024 At risk for obstructive sleep apnea 05/31/2024 o/p sleep study recommended during admission CHF (congestive heart failure) ([facility]) CKD (chronic kidney disease) HFrEF (heart failure with reduced ejection fraction) ([facility]) 04/28/2024 History of left bundle branch block (LBBB) 06/19/2024 Hypercholesteremia Hypertension Noncompliance 06/19/2024 NSTEMI (non-ST elevated myocardial infarction) ([facility]) 07/11/2024 Pulmonary vascular congestion 04/28/2024 Sinus tachycardia 06/19/2024 Procedures: Narrative & Impression Patient Name: CARLO MEDINA : 1980 [facility]#: [id number] Exam Date/Time: 07/23/2024 20:07 Procedure: XR CHEST 1 VIEW Ordering Provider: ALVARENGA SAMANTHA Reason For Exam: DYSPNEA EXAM: XR Chest, 1 View CLINICAL INDICATION: DYSPNEA TECHNIQUE: Frontal view of the chest. COMPARISON: July 11, 2024. FINDINGS: LUNGS AND PLEURAL SPACES: Unremarkable. No consolidation. No pneumothorax. HEART: Stable cardiomegaly. MEDIASTINUM: Unremarkable. Normal mediastinal contour. BONES/JOINTS: Unremarkable. No acute fracture. IMPRESSION: Stable cardiomegaly. No acute process. Report Dictated on Electronically Signed By: Juan Pereira MD Electronically Signed Date/Time: 07/23/2024 8:20 PM EST Hospital Course: Patient treated for acute/chronic heart failure and SCHUYLER. He improved but did have hypokalemia and hypomagnesemia, he refused IV supplementation and was discharged with magnesium level of 1.3 and potassium level of 2.8. Patient was educated on what electrolyte derangements have on ca rdiac arhythmia that could lead to . Patient declined IV administration. He was given outpatient labs so cardiology can review levels at his outpatient appointment. See discharge diagnoses list above and medication adjustments below in med rec.The patient is discharged in improved and stable condition. Consults: IP CONSULT TO HEART FAILURE NURSE/COORDINATOR IP CONSULT TO CARDIOLOGY IP CONSULT TO PALLIATIVE CARE IP CONSULT TO SOCIAL WORK IP CONSULT TO NEPHROLOGY IP CONSULT TO SOCIAL WORK Discharge Instructions: Diet: Dietary Orders (From admission, onward) Start Ordered 07/26/24 1600 Adult diet Regular; Low Sodium (2 gm); 1800 ml Diet effective now Question Answer Comment Diet type Regular Sodium restriction: Low Sodium (2 gm) Dietary fluid restriction / 24h (7A-7A): 1800 ml 07/26/24 1600 Activity: as tolerated Recommended Outpatient Tests: Disposition: Patient discharged in stable condition to Home. Greater than 31 minutes spent discharging the patient and coming up with patient discharge plan. Vitals: BP 112/82 Pulse 101 Temp 36.4 C (97.5 F) (Temporal) Resp 16 Wt 163 lb 3.2 oz (74 kg) SpO2 97% BMI 21.53 kg/m Pulse Ox: SpO2 Av.3 % Min: 95 % Max: 99 % Supplemental O2: Physical Exam Vitals and nursing note reviewed. Constitutional: Appearance: Normal appearance. HENT: Head: Normocephalic and atraumatic. Nose: Nose normal. Mouth/Throat: Mouth: Mucous membranes are moist. Eyes: Extraocular Movements: Extraocular movements intact. Conjunctiva/sclera: Conjunctivae normal. Pupils: Pupils are equal, round, and reactive to light. Cardiovascular: Rate and Rhythm: Normal rate and regular rhythm. Pulmonary: Effort: Pulmonary effort is normal. Breath sounds: Normal breath sounds. Abdominal: General: Bowel sounds are normal. Palpations: Abdomen is soft. Musculoskeletal: General: Normal range of motion. Cervical back: Normal range of motion. Skin: General: Skin is warm and dry. Neurological: General: No focal deficit present. Mental Status: He is alert and oriented to person, place, and time. Psychiatric: Mood and Affect: Mood normal. Behavior: Behavior normal. Thought Content: Thought content normal. Comments: Poor insight into medical conditions and declines medications often LABS: Recent Labs 07/28/24 0603 07/29/24 0324 07/30/24 0539 NA 140 136 140 K 3.5 3.3* 2.8* CL 99 103 108* CO2 BUN 29* 28* 30* CREATININE 1.66* 1.36* 1.18 GLUCOSE 97 103* 92 CALCIUM 8.3* 6.9* 6.4* Recent Labs 07/28/24 0603 07/29/24 0324 WBC 5.6 5.9 RBC 4.33* 3.73* HGB 14.3 12.5* HCT 44.8 38.9* MCV 103.5* 104.3* MCH 33.0 33.5 MCHC 31.9 32.1 RDW 13.2 13.0 PLT 225 202 MPV 9.0 8.9* Discharge Medications: Medication List ASK your doctor about these medications carvedilol 25 MG tablet Commonly known as: Coreg Take 1 tablet (25 mg) by mouth 2 times daily (with meals). cholecalciferol 50 MCG (2000 UT) tablet Commonly known as: Vitamin D-3 Take 2 tablets (4,000 Units) by mouth daily. Eliquis 5 MG tablet Generic drug: apixaban Take 1 tablet (5 mg) by mouth 2 times daily. Entresto 97-103 MG tablet Generic drug: sacubitril-valsartan Take 1 tablet by mouth 2 times daily. furosemide 40 MG tablet Commonly known as: Lasix Take 1 tablet (40 mg) by mouth daily. sodium bicarbonate 650 MG tablet Take 2 tablets (1,300 mg) by mouth 2 times daily. spironolactone 25 MG tablet Commonly known as: Aldactone Take 0.5 tablets (12.5 mg) by mouth daily. Recommended Follow-up: No follow-up provider specified. Complexity of Follow up: [] Moderate Complexity: follow up within 7-14 calendar days (64166) [x] Severe Complexity: follow up within 7 calendar days (36348) Follow up Testing, Pending results or Referrals at Transitional Care Visit: [x] yes [] no Instructions to MA: Please call patient on day after discharge (must document patient contacted within 2 business days of discharge). Follow up questions for MA: 1. Did you get medications filled and taking them as instructed from discharge? 2. Are you following your discharge instructions from your hospital stay? 3. Please confirm patient is scheduled for a follow up appointment within the above time frame. Signed: THOMAS Castillo CNP Division of Hospitalist Medicine [place] [facility] [place] 07/30/2024, 11:06 AM Cosigned by Darrell Kohler MD at 07/30/2024 7:16 PM EST documented in this [facility]01-31-2025 Note* Care Coordination - Brittany Alston RN - 07/30/2024 8:58 AM EST Care Management Progress Note Received call from Pauline from [facility] who is pt's Inpatient rd manager and she informed this TCC that pt's insurance is OON and should be transferred. Informed her per DOUGHNUT MACHINE OPERATOR HELPER note that DOUGHNUT MACHINE OPERATOR HELPER tried to transfer last evening and there were no beds available at [facility]. Met pt at bedside and updated him that his insurance told this TCC that [facility] is out of network with his insurance. Pt states he did NOT know this. Pt encouraged to reach out to his insurance for further explanation. Length of Stay (Days): 2 GMLOS: No GMLOS Documented [id number]* Care Coordination - Brittany Alston RN - 07/30/2024 8:58 AM EST Care Management Progress Note Received call from Pauline from [facility] who is pt's Inpatient rd manager and she informed this TCC that pt's insurance is OON and should be transferred. Informed her per DOUGHNUT MACHINE OPERATOR HELPER note that DOUGHNUT MACHINE OPERATOR HELPER tried to transfer last evening and there were no beds available at [facility]. Met pt at bedside and updated him that his insurance told this TCC that [facility] is out of network with his insurance. Pt states he did NOT know this. Pt encouraged to reach out to his insurance for further explanation. Length of Stay (Days): 2 GMLOS: No GMLOS Documented [id number] Plan of care note* Care Plan - Tamiko Live RN - 07/30/2024 8:51 AM EST Problem: Pain - Adult Goal: Verbalizes/displays adequate comfort level or baseline comfort level Outcome: Progressing Problem: Safety - Adult Goal: Free from fall injury Outcome: Progressing Flowsheets (Taken 07/30/2024 0847) Free from fall injury: Instruct family/caregiver on patient safety Problem: Chronic Conditions and Co-morbidities Goal: Patient's chronic conditions and co-morbidity symptoms are monitored and maintained or improved Outcome: Progressing [facility] [id number] Plan of care note* Care Plan - Sue Schuler RN - 07/30/2024 2:42 AM EST Problem: Pain - Adult Goal: Verbalizes/displays adequate comfort level or baseline comfort level Outcome: Progressing Problem: Safety - Adult Goal: Free from fall injury Outcome: Progressing Problem: Discharge Planning Goal: Discharge to home or other facility with appropriate resources Outcome: Progressing Problem: Chronic Conditions and Co-morbidities Goal: Patient's chronic conditions and co-morbidity symptoms are monitored and maintained or improved Outcome: Progressing Flowsheets (Taken 07/29/20242003) Care Plan - Patient's Chronic Conditions and Co-Morbidity Symptoms are Monitored and Maintained or Improved: Monitor and assess patient's chronic conditions and comorbid symptoms for stability, deterioration,or improvement Collaborate with multidisciplinary team to address chronic and comorbid conditions and prevent exacerbation or deterioration Update acute care plan with appropriate goals if chronic or comorbid symptoms are exacerbated and prevent overall improvement and discharge Problem: Knowledge Deficit Goal: Patient/family/caregiver demonstrates understanding of disease process, treatment plan, medications, and discharge instructions Outcome: Progressing Problem: Hemodynamic Status Goal: Patient's vitals signs are stable Outcome: Progressing Problem: Excessive Fluid Volume Goal: Fluid and electrolyte balance are achieved/maintained Outcome: Progressing Problem: Inadequate Gas Exchange Goal: Patient is adequately oxygenated and ventilation is improved Outcome: Progressing Goal: Nutritional status is improving Outcome: Progressing Problem: Activity Intolerance/Impaired Mobility Goal: Mobility/activity is maintained at optimum level for patient Outcome: Progressing Problem: Nutrition Goal: Nutritional status is improving Outcome: Progressing [facility] [id number] Note* Significant Event - Lilibeth Huber APRN - VIKKI - 07/29/2024 5:11 PM EST Called [facility] transfer line to see about transferring patient to them as he is apparently outof network. Was told that they have a waiting list for beds. Gave [facility] [place] patient information and will call back tomorrow to see where they are with beds. Patient likely will be discharged tomorrow. [facility] [id number] Note* Significant Event - THOMAS Larson CNP - 07/29/2024 5:11 PM EST Called [facility] transfer line to see about transferring patient to them as he is apparently outof network. Was told that they have a waiting list for beds. Gave [facility] [place] patient information and will call back tomorrow to see where they are with beds. Patient likely will be discharged tomorrow. [facility] [id number] Plan of care note* Care Plan - Tamiko Live RN - 07/29/2024 10:51 AM EST Problem: Safety - Adult Goal: Free from fall injury Outcome: Progressing Flowsheets (Taken 07/29/2024 0900) Free from fall injury: Instruct family/caregiver on patient safety Problem: Chronic Conditions and Co-morbidities Goal: Patient's chronic conditions and co-morbidity symptoms are monitored and maintained or improved Outcome: Progressing Flowsheets (Taken 07/29/2024 0900) Care Plan - Patient's Chronic Conditions and Co-Morbidity Symptoms are Monitored and Maintained or Improved: Monitor and assess patient's chronic conditions and comorbid symptoms for stability, deterioration, or improvement Problem: Knowledge Deficit Goal: Patient/family/caregiver demonstrates understanding of disease process, treatment plan, medications, and discharge instructions Outcome: Progressing [facility] [id number] Nurse Note* Tamiko Live RN - 07/29/2024 10:15 AM EST Nursing went to give IV Magnesium and patient refused. Notified Lilibeth Anguiano APRN. [id number] Plan of care note* Care Plan - Sue Schuler RN - 07/29/2024 1:21 AM EST Problem: Pain - Adult Goal: Verbalizes/displays adequate comfort level or baseline comfort level Outcome: Progressing Problem: Safety - Adult Goal: Free from fall injury Outcome: Progressing Problem: Discharge Planning Goal: Discharge to home or other facility with appropriate resources Outcome: Progressing Problem: Chronic Conditions and Co-morbidities Goal: Patient's chronic conditions and co-morbidity symptoms are monitored and maintained or improved Outcome: Progressing Flowsheets (Taken 07/28/20242021) Care Plan - Patient's Chronic Conditions and Co-Morbidity Symptoms are Monitored and Maintained or Improved: Monitor and assess patient's chronic conditions and comorbid symptoms for stability, deterioration,or improvement Collaborate with multidisciplinary team to address chronic and comorbid conditions and prevent exacerbation or deterioration Update acute care plan with appropriate goals if chronic or comorbid symptoms are exacerbated and prevent overall improvement and discharge Problem: Knowledge Deficit Goal: Patient/family/caregiver demonstrates understanding of disease process, treatment plan, medications, and discharge instructions Outcome: Progressing Problem: Hemodynamic Status Goal: Patient's vitals signs are stable Outcome: Progressing Problem: Excessive Fluid Volume Goal: Fluid and electrolyte balance are achieved/maintained Outcome: Progressing Problem: Inadequate Gas Exchange Goal: Patient is adequately oxygenated and ventilation is improved Outcome: Progressing Goal: Nutritional status is improving Outcome: Progressing Problem: Activity Intolerance/Impaired Mobility Goal: Mobility/activity is maintained at optimum level for patient Outcome: Progressing Problem: Nutrition Goal: Nutritional status is improving Outcome: Progressing [id number] NoteNon billable note I attest and agree with Nicole Cross DOUGHNUT MACHINE OPERATOR HELPER Student's assessment, progress note and plan of care for today [facility] [id number] Note* Medical Student - Nicole Cross - 07/28/2024 12:37 PM EST Hospitalist Progress Note 07/28/2024 Subjective: Admit Date: 07/23/2024 PCP: No primary care provider on file. Room#: B2-850/B2-319 A BRIEF HOSPITAL COURSE: Carlo is a 44 y.o. male with past medical history of heart failure with reduced ejection fraction, chronic kidney disease, left bundle branch block, hypertension, noncompliance behavior, history ofnon-ST elevation ND who presented to the emergency department with complaint of swelling in the legs and shortness of breath along with abnormal labs. Patient symptoms have been going on for last couple days and has been progressively getting worse. Patient had lab work done as an outpatient per cardiology recommendation. Patient was advised by them to double up on his diuretics as the swelling was persistent in his lower legs. Patient had gained 10 pounds since last admission about 1 week ago.Patient received a call from the cardiology office stating his renal function is getting worse. Patient continued to have worsening swelling and shortness of breath and was advised to come to the emergency department for further evaluation 07/25/24 Per cardiology continue 80mg IV Lasix BID and Metolazone 5 mg daily, strict I&Os, has life vest at home, not wearing it, refusing lab draws, meds, non compliance, palliative consulted, 5 admits in 202307/26/24: No overnight issues. Patient refusing daily labs. Discussed with patient importance of daily labs to monitor renal function. Patient resting in bed, NAD. Patient reports urinary frequency but discussed with patient this is due to diuresis with BID Lasix. Patient reports this is annoying but educated that it is necessary to maintain his cardiac function. Nephrology consulted today by cardiology as SCHUYLER on CKD is limiting cardiac treatment options. 07/27/24: No overnight issues. Patient seen and examined in room. Patient resting in bed, NAD. Continues to be followed by cardiology and nephrology, appreciate their recommendations. Patient denies chest pain, SOB, N/V/D, and denies fever/chills. Bilateral legs wrapped, swelling improved but still present. Interval History: 07/28/24: No overnight issues. Patient resting in bed, NAD. Patient continues to be followed closelywith cardiology and nephrology. Counseled patient on importance of treatment compliance as he wouldonly take half (40 mg) the dose of ordered IV Lasix. Patient verbalized understanding. Denies chestpain, SOB, N/V/D. Denies chest pain. Case and plan discussed with patient and bedside nurse. All questions answered. Adult diet Regular; Low Sodium (2 gm); 1800 ml 24HR INTAKE/OUTPUT: Intake/Output Summary (Last 24 hours) at 07/28/2024 1237 Last data filed at 07/28/2024 0900 Gross per 24 hour Intake 360 ml Output 3500 ml Net -3140 ml Past Medical History: Past Medical History: Diagnosis Date Acute HFrEF (heart failure with reduced ejection fraction) ([facility]) 06/13/2024 Acute kidney injury superimposed on CKD ([facility]) ([facility]) 07/03/2024 At risk for obstructive sleep apnea 05/31/2024 o/p sleep study recommended during admission CHF (congestive heart failure) ([facility]) CKD (chronic kidney disease) HFrEF (heart failure with reduced ejection fraction) ([facility]) 04/28/2024 History of left bundle branch block (LBBB) 06/19/2024 Hypercholesteremia Hypertension Noncompliance 06/19/2024 NSTEMI (non-ST elevated myocardial infarction) ([facility]) 07/11/2024 Pulmonary vascular congestion 04/28/2024 Sinus tachycardia 06/19/2024 LABS: CBC: Recent Labs 07/26/24 0907 07/27/24 0103 07/28/24 0603 WBC 5.5 5.7 5.6 RBC 4.24* 4.16* 4.33* HGB 14.1 13.8 14.3 HCT 43.0 42.4 44.8 MCV 101.4* 101.9* 103.5* RDW 13.4 13.3 13.2 PLT 240 241 225 BMP: Recent Labs 07/26/24 0907 07/27/24 0103 07/28/24 0603 NA 138 140 140 K 3.4* 3.6 3.5 CL 103 102 99 CO2 23 24 31* BUN 40* 35* 29* CREATININE 2.14* 1.84* 1.66* GLUCOSE 114* 95 97 CALCIUM 8.5 8.4 8.3* ANIONGAP 12 14* 10 LIVER PROFILE: Recent Labs 07/26/24 0907 07/27/24 0103 07/28/24 0603 AST 27 31 26 ALT 57* 60* 49* BILITOT 1.4* 1.3* 1.6* ALKPHOS 166* 175* 153* PROT 5.9* 6.3* 6.1* PT/INR: No results for input(s): PROTIME, INR in the last 72 hours. CARDIAC ENZYMES: No results for input(s): TROPONINI in the last 72 hours. Procalcitonin: No results found for: PROCAL COVID-19 PCR: No results for input(s): COVID19 in the last 72 hours. Objective: Vitals: BP 107/79 Pulse 99 Temp 37.2 C (98.9 F) (Temporal) Resp 16 Wt 167 lb (75.8 kg) SpO2 99% BMI 22.03 kg/m Pulse Ox: SpO2 Av.5 % Min: 96 % Max: 100 % Supplemental O2: Physical Exam Vitals and nursing note reviewed. Constitutional: Appearance: Normal appearance. HENT: Head: Normocephalic and atraumatic. Nose: Nose normal. Mouth/Throat: Mouth: Mucous membranes are moist. Eyes: Extraocular Movements: Extraocular movements intact. Conjunctiva/sclera: Conjunctivae normal. Pupils: Pupils are equal, round, and reactive to light. Cardiovascular: Pulses: Normal pulses. Heart sounds: Normal heart sounds. Pulmonary: Effort: Pulmonary effort is normal. Breath sounds: Normal breath sounds. Abdominal: General: Bowel sounds are normal. Musculoskeletal: General: Normal range of motion. Cervical back: Normal range of motion. Right lower leg: Edema present. Left lower leg: Edema present. Skin: General: Skin is warm and dry. Capillary Refill: Capillary refill takes less than 2 seconds. Neurological: Mental Status: He is alert and oriented to person, place, and time. Psychiatric: Mood and Affect: Mood normal. Medications: Scheduled PRN apixaban, 5 mg, Oral, BID carvedilol, 25 mg, Oral, BID WC cholecalciferol, 4,000 Units, Oral, Daily furosemide, 80 mg, IntraVENous, BID magnesium sulfate, 2,000 mg, IntraVENous, Once metOLazone, 5 mg, Oral, Daily [Held by provider] sacubitril-valsartan, 1 tablet, Oral, BID sodium bicarbonate, 1,300 mg, Oral, BID PRN medications: acetaminophen OR acetaminophen, ondansetron ODT OR ondansetron, polyethylene glycol (PEG) 3350 Continuous Assessment Data: Acute, acute on chronic, unstable/uncontrolled chronic problems/diagnoses: HFrEF- TTE 05/2024 EF 20% Non ischemic cardiomyopathy SCHUYLER with history of CKD Chronic transaminitis- continue to monitor with daily labs Hypomagnesemia Shortness of breath Persistent leg edema Stable chronic problems affecting care, new non-acute diagnoses: History of CAD Left heart catheterization 06/17/24, no interventions needed LBBB NSTEMI Hyperlipidemia DVT Noncompliance behavior Plan As a result of the above findings & factors, the following mgmt was pursued: - Hx of noncompliance, frequent admissions for SOB and edema - Cardiology consulted, appreciate recommendations; diuresis with 80 mg IV Lasix BID, Coreg 25 mg BID, held Entresto due to renal insufficiency, continue Metolazone but patient is refusing to take - Nephrology consulted, limited medical therapy 2/2 CKD, appreciate recommendations - Patient refusing half his dose of IV lasix this morning - Counseled on importance of treatment compliance, verbalized understanding - Continue to monitor daily weight diuresis monitoring - Monitor renal and liver function with daily labs, Cr improved to 1.66 today - LFTs improving - Magnesium 1.5 today, patient refused replacement - BNP continuing to improve, today 17,152 - Continue to attempt daily labs - Supplemental O2 as needed - Low Na cardiac diet - Nursing to apply lucrecia wrap to bilateral lower extremities daily, and remove at night - am labs, replace lytes prn - PT/OT/CM/SW - delirium precautions: increase activity and limit nighttime disturbances - DVT prophylaxis: encourage ambulation and already anticoagulated Complexity: Chronic illness with mild to moderate exacerbation, progression, or side effect of tx (MOD). Risk: Prescription drug/IVF/colloid was initiated, discontinued, adjusted; or reviewed with decision to maintain current orders (MOD). Advance Directive: Full Code Anticipated Discharge - Date - TBD - Location - Home - Pending the following - symptom improvement and optimization of treatment by cardiology and nephrology Extended Emergency Contact Information Primary Emergency Contact: Kaitlin Hicks Mobile Relation: Significant Other Secondary Emergency Contact: Indira Medina Mobile Relation: Sister Nicole Cross Division of Hospitalist Medicine [facility] Cosigned by THOMAS Carlos CNP at 07/28/2024 2:36 PM EST [id number] Note* Medical Student - Nicole Cross - 07/28/2024 12:37 PM EST Hospitalist Progress Note 07/28/2024 Subjective: Admit Date: 07/23/2024 PCP: No primary care provider on file. Room#: B2-268/B2-268 A BRIEF HOSPITAL COURSE: Carlo is a 44 y.o. male with past medical history of heart failure with reduced ejection fraction, chronic kidney disease, left bundle branch block, hypertension, noncompliance behavior, history ofnon-ST elevation ND who presented to the emergency department with complaint of swelling in the legs and shortness of breath along with abnormal labs. Patient symptoms have been going on for last couple days and has been progressively getting worse. Patient had lab work done as an outpatient per cardiology recommendation. Patient was advised by them to double up on his diuretics as the swelling was persistent in his lower legs. Patient had gained 10 pounds since last admission about 1 week ago.Patient received a call from the cardiology office stating his renal function is getting worse. Patient continued to have worsening swelling and shortness of breath and was advised to come to the emergency department for further evaluation 07/25/24 Per cardiology continue 80mg IV Lasix BID and Metolazone 5 mg daily, strict I&Os, has life vest at home, not wearing it, refusing lab draws, meds, non compliance, palliative consulted, 5 admits in 202307/26/24: No overnight issues. Patient refusing daily labs. Discussed with patient importance of daily labs to monitor renal function. Patient resting in bed, NAD. Patient reports urinary frequency but discussed with patient this is due to diuresis with BID Lasix. Patient reports this is annoying but educated that it is necessary to maintain his cardiac function. Nephrology consulted today by cardiology as SCHUYLER on CKD is limiting cardiac treatment options. 07/27/24: No overnight issues. Patient seen and examined in room. Patient resting in bed, NAD. Continues to be followed by cardiology and nephrology, appreciate their recommendations. Patient denies chest pain, SOB, N/V/D, and denies fever/chills. Bilateral legs wrapped, swelling improved but still present. Interval History: 07/28/24: No overnight issues. Patient resting in bed, NAD. Patient continues to be followed closelywith cardiology and nephrology. Counseled patient on importance of treatment compliance as he wouldonly take half (40 mg) the dose of ordered IV Lasix. Patient verbalized understanding. Denies chestpain, SOB, N/V/D. Denies chest pain. Case and plan discussed with patient and bedside nurse. All questions answered. Adult diet Regular; Low Sodium (2 gm); 1800 ml 24HR INTAKE/OUTPUT: Intake/Output Summary (Last 24 hours) at 07/28/2024 1237 Last data filed at 07/28/2024 0900 Gross per 24 hour Intake 360 ml Output 3500 ml Net -3140 ml Past Medical History: Past Medical History: Diagnosis Date Acute HFrEF (heart failure with reduced ejection fraction) ([facility]) 06/13/2024 Acute kidney injury superimposed on CKD ([facility]) ([facility]) 07/03/2024 At risk for obstructive sleep apnea 05/31/2024 o/p sleep study recommended during admission CHF (congestive heart failure) ([facility]) CKD (chronic kidney disease) HFrEF (heart failure with reduced ejection fraction) ([facility]) 04/28/2024 History of left bundle branch block (LBBB) 06/19/2024 Hypercholesteremia Hypertension Noncompliance 06/19/2024 NSTEMI (non-ST elevated myocardial infarction) ([facility]) 07/11/2024 Pulmonary vascular congestion 04/28/2024 Sinus tachycardia 06/19/2024 LABS: CBC: Recent Labs 07/26/24 0907 07/27/24 0103 07/28/24 0603 WBC 5.5 5.7 5.6 RBC 4.24* 4.16* 4.33* HGB 14.1 13.8 14.3 HCT 43.0 42.4 44.8 MCV 101.4* 101.9* 103.5* RDW 13.4 13.3 13.2 PLT 240 241 225 BMP: Recent Labs 07/26/24 0907 07/27/24 0103 07/28/24 0603 NA 138 140 140 K 3.4* 3.6 3.5 CL 103 102 99 CO2 23 24 31* BUN 40* 35* 29* CREATININE 2.14* 1.84* 1.66* GLUCOSE 114* 95 97 CALCIUM 8.5 8.4 8.3* ANIONGAP 12 14* 10 LIVER PROFILE: Recent Labs 07/26/24 0907 07/27/24 0103 07/28/24 0603 AST 27 31 26 ALT 57* 60* 49* BILITOT 1.4* 1.3* 1.6* ALKPHOS 166* 175* 153* PROT 5.9* 6.3* 6.1* PT/INR: No results for input(s): PROTIME, INR in the last 72 hours. CARDIAC ENZYMES: No results for input(s): TROPONINI in the last 72 hours. Procalcitonin: No results found for: PROCAL COVID-19 PCR: No results for input(s): COVID19 in the last 72 hours. Objective: Vitals: BP 107/79 Pulse 99 Temp 37.2 C (98.9 F) (Temporal) Resp 16 Wt 167 lb (75.8 kg) SpO2 99% BMI 22.03 kg/m Pulse Ox: SpO2 Av.5 % Min: 96 % Max: 100 % Supplemental O2: Physical Exam Vitals and nursing note reviewed. Constitutional: Appearance: Normal appearance. HENT: Head: Normocephalic and atraumatic. Nose: Nose normal. Mouth/Throat: Mouth: Mucous membranes are moist. Eyes: Extraocular Movements: Extraocular movements intact. Conjunctiva/sclera: Conjunctivae normal. Pupils: Pupils are equal, round, and reactive to light. Cardiovascular: Pulses: Normal pulses. Heart sounds: Normal heart sounds. Pulmonary: Effort: Pulmonary effort is normal. Breath sounds: Normal breath sounds. Abdominal: General: Bowel sounds are normal. Musculoskeletal: General: Normal range of motion. Cervical back: Normal range of motion. Right lower leg: Edema present. Left lower leg: Edema present. Skin: General: Skin is warm and dry. Capillary Refill: Capillary refill takes less than 2 seconds. Neurological: Mental Status: He is alert and oriented to person, place, and time. Psychiatric: Mood and Affect: Mood normal. Medications: Scheduled PRN apixaban, 5 mg, Oral, BID carvedilol, 25 mg, Oral, BID WC cholecalciferol, 4,000 Units, Oral, Daily furosemide, 80 mg, IntraVENous, BID magnesium sulfate, 2,000 mg, IntraVENous, Once metOLazone, 5 mg, Oral, Daily [Held by provider] sacubitril-valsartan, 1 tablet, Oral, BID sodium bicarbonate, 1,300 mg, Oral, BID PRN medications: acetaminophen OR acetaminophen, ondansetron ODT OR ondansetron, polyethylene glycol (PEG) 3350 Continuous Assessment Data: Acute, acute on chronic, unstable/uncontrolled chronic problems/diagnoses: HFrEF- TTE 05/2024 EF 20% Non ischemic cardiomyopathy SCHUYLER with history of CKD Chronic transaminitis- continue to monitor with daily labs Hypomagnesemia Shortness of breath Persistent leg edema Stable chronic problems affecting care, new non-acute diagnoses: History of CAD Left heart catheterization 06/17/24, no interventions needed LBBB NSTEMI Hyperlipidemia DVT Noncompliance behavior Plan As a result of the above findings & factors, the following mgmt was pursued: - Hx of noncompliance, frequent admissions for SOB and edema - Cardiology consulted, appreciate recommendations; diuresis with 80 mg IV Lasix BID, Coreg 25 mg BID, held Entresto due to renal insufficiency, continue Metolazone but patient is refusing to take - Nephrology consulted, limited medical therapy 2/2 CKD, appreciate recommendations - Patient refusing half his dose of IV lasix this morning - Counseled on importance of treatment compliance, verbalized understanding - Continue to monitor daily weight diuresis monitoring - Monitor renal and liver function with daily labs, Cr improved to 1.66 today - LFTs improving - Magnesium 1.5 today, patient refused replacement - BNP continuing to improve, today 17,152 - Continue to attempt daily labs - Supplemental O2 as needed - Low Na cardiac diet - Nursing to apply lucrecia wrap to bilateral lower extremities daily, and remove at night - am labs, replace lytes prn - PT/OT/CM/SW - delirium precautions: increase activity and limit nighttime disturbances - DVT prophylaxis: encourage ambulation and already anticoagulated Complexity: Chronic illness with mild to moderate exacerbation, progression, or side effect of tx (MOD). Risk: Prescription drug/IVF/colloid was initiated, discontinued, adjusted; or reviewed with decision to maintain current orders (MOD). Advance Directive: Full Code Anticipated Discharge - Date - TBD - Location - Home - Pending the following - symptom improvement and optimization of treatment by cardiology and nephrology Extended Emergency Contact Information Primary Emergency Contact: Kaitlin Hicks Mobile Relation: Significant Other Secondary Emergency Contact: Indira Medina Mobile Relation: Sister Nicole Cross [facility] Cosigned by THOMAS Carlos CNP at 07/28/2024 2:36 PM EST [id number] Plan of care note* Care Plan - Phyllis Luna RN - 07/28/2024 10:51 AM EST Problem: Chronic Conditions and Co-morbidities Goal: Patient's chronic conditions and co-morbidity symptoms are monitored and maintained or improved 07/28/2024 1050 by Phyllis Luna RN Outcome: Progressing 07/28/2024 1048 by Phyllis Luna RN Outcome: Progressing Problem: Hemodynamic Status Goal: Patient's vitals signs are stable Outcome: Progressing Problem: Excessive Fluid Volume Goal: Fluid and electrolyte balance are achieved/maintained Outcome: Progressing Problem: Inadequate Gas Exchange Goal: Patient is adequately oxygenated and ventilation is improved Outcome: Progressing [facility] [id number] Plan of care note* Care Plan - Leatha Lancaster RN - 07/28/2024 1:01 AM EST Problem: Pain - Adult Goal: Verbalizes/displays adequate comfort level or baseline comfort level Outcome: Progressing Problem: Safety - Adult Goal: Free from fall injury Outcome: Progressing Problem: Discharge Planning Goal: Discharge to home or other facility with appropriate resources Outcome: Progressing Problem: Chronic Conditions and Co-morbidities Goal: Patient's chronic conditions and co-morbidity symptoms are monitored and maintained or improved Outcome: Progressing Problem: Knowledge Deficit Goal: Patient/family/caregiver demonstrates understanding of disease process, treatment plan, medications, and discharge instructions Outcome: Progressing Problem: Hemodynamic Status Goal: Patient's vitals signs are stable Outcome: Progressing Problem: Excessive Fluid Volume Goal: Fluid and electrolyte balance are achieved/maintained Outcome: Progressing Problem: Inadequate Gas Exchange Goal: Patient is adequately oxygenated and ventilation is improved Outcome: Progressing Goal: Nutritional status is improving Outcome: Progressing Problem: Activity Intolerance/Impaired Mobility Goal: Mobility/activity is maintained at optimum level for patient Outcome: Progressing Problem: Nutrition Goal: Nutritional status is improving Outcome: Progressing [facility]01-28-2025 Note* Care Coordination - Narcisa Tavarez RN - 07/27/2024 3:32 PM EST Pt admitted for SCHULYER. Chart reviewed. Pt has been admitted to [facility] several times with in the past month. Has a history of non-compliance. Cardiology, nephrology, and palliative following. Receiving IV Lasix. Cr improving at this time. Pt will not qualify for HHC due to no PCP. Discharge plan will be home when medically ready. product communications manager to follow and assist as needed. [facility]01-28-2025 Note* Care Coordination - Narcisa Tavarez RN - 07/27/2024 3:32 PM EST Pt admitted for SCHUYLER. Chart reviewed. Pt has been admitted to [facility] several times with in the past month. Has a history of non-compliance. Cardiology, nephrology, and palliative following. Receiving IV Lasix. Cr improving at this time. Pt will not qualify for HHC due to no PCP. Discharge plan will be home when medically ready. product communications manager to follow and assist as needed. [id number] NoteI attest and agree with Nicole Cross DOUGH[employer] MACHINE OPERATOR HELPER student's progress note, assessment and plan of [facility]28-[facility]* Medical Student - Nicole Cross - 07/27/2024 12:03 PM EST Hospitalist Progress Note 07/27/2024 Subjective: Admit Date: 07/23/2024 PCP: No primary care provider on file. Room#: B2-268/[id number] A BRIEF HOSPITAL COURSE: Carlo is a 44 y.o. male with past medical history of heart failure with reduced ejection fraction, chronic kidney disease, left bundle branch block, hypertension, noncompliance behavior, history ofnon-ST elevation ND who presented to the emergency department with complaint of swelling in the legs and shortness of breath along with abnormal labs. Patient symptoms have been going on for last couple days and has been progressively getting worse. Patient had lab work done as an outpatient per cardiology recommendation. Patient was advised by them to double up on his diuretics as the swelling was persistent in his lower legs. Patient had gained 10 pounds since last admission about 1 week ago.Patient received a call from the cardiology office stating his renal function is getting worse. Patient continued to have worsening swelling and shortness of breath and was advised to come to the emergency department for further evaluation 07/25/24 Per cardiology continue 80mg IV Lasix BID and Metolazone 5 mg daily, strict I&Os, has life vest at home, not wearing it, refusing lab draws, meds, non compliance, palliative consulted, 5 admits in 202307/26/24: No overnight issues. Patient refusing daily labs. Discussed with patient importance of daily labs to monitor renal function. Patient resting in bed, NAD. Patient reports urinary frequency but discussed with patient this is due to diuresis with BID Lasix. Patient reports this is annoying but educated that it is necessary to maintain his cardiac function. Nephrology consulted today by cardiology as SCHUYLER on CKD is limiting cardiac treatment options. Interval History: 07/27/24: No overnight issues. Patient seen and examined in room. Patient resting in bed, NAD. Continues to be followed by cardiology and nephrology, appreciate their recommendations. Patient denies chest pain, SOB, N/V/D, and denies fever/chills. Bilateral legs wrapped, swelling improved but still present. Case and plan discussed with patient and bedside nurse. All questions answered. Adult diet Regular; Low Sodium (2 gm); 1800 ml 24HR INTAKE/OUTPUT: Intake/Output Summary (Last 24 hours) at 07/27/2024 1203 Last data filed at 07/26/2024 2356 Gross per 24 hour Intake 600 ml Output 3900 ml Net -3300 ml Past Medical History: Past Medical History: Diagnosis Date Acute HFrEF (heart failure with reduced ejection fraction) ([facility]) 06/13/2024 Acute kidney injury superimposed on CKD ([facility]) ([facility]) 07/03/2024 At risk for obstructive sleep apnea 05/31/2024 o/p sleep study recommended during admission CHF (congestive heart failure) ([facility]) CKD (chronic kidney disease) HFrEF (heart failure with reduced ejection fraction) ([facility]) 04/28/2024 History of left bundle branch block (LBBB) 06/19/2024 Hypercholesteremia Hypertension Noncompliance 06/19/2024 NSTEMI (non-ST elevated myocardial infarction) ([facility]) 07/11/2024 Pulmonary vascular congestion 04/28/2024 Sinus tachycardia 06/19/2024 LABS: CBC: Recent Labs 07/26/24 0907 07/27/24 0103 WBC 5.5 5.7 RBC 4.24* 4.16* HGB 14.1 13.8 HCT 43.0 42.4 MCV 101.4* 101.9* RDW 13.4 13.3 PLT 240 241 BMP: Recent Labs 07/26/24 0907 07/27/24 0103 NA 138 140 K 3.4* 3.6 CL 103 102 CO2 23 24 BUN 40* 35* CREATININE 2.14* 1.84* GLUCOSE 114* 95 CALCIUM 8.5 8.4 ANIONGAP 12 14* LIVER PROFILE: Recent Labs 07/26/24 0907 07/27/24 0103 AST 27 31 ALT 57* 60* BILITOT 1.4* 1.3* ALKPHOS 166* 175* PROT 5.9* 6.3* PT/INR: No results for input(s): PROTIME, INR in the last 72 hours. CARDIAC ENZYMES: No results for input(s): TROPONINI in the last 72 hours. Procalcitonin: No results found for: PROCAL COVID-19 PCR: No results for input(s): COVID19 in the last 72 hours. Objective: Vitals: BP 114/86 Pulse 107 Temp 36.6 C (97.8 F) (Temporal) Resp 17 Wt 182 lb (82.6 kg) SpO2 93% BMI 24.01 kg/m Pulse Ox: SpO2 Av % Min: 93 % Max: 99 % Supplemental O2: none Physical Exam Vitals and nursing note reviewed. Constitutional: Appearance: Normal appearance. HENT: Head: Normocephalic and atraumatic. Nose: Nose normal. Eyes: Extraocular Movements: Extraocular movements intact. Conjunctiva/sclera: Conjunctivae normal. Pupils: Pupils are equal, round, and reactive to light. Cardiovascular: Pulses: Normal pulses. Heart sounds: Normal heart sounds. Pulmonary: Effort: Pulmonary effort is normal. Breath sounds: Normal breath sounds. Abdominal: General: Bowel sounds are normal. Musculoskeletal: General: Normal range of motion. Cervical back: Normal range of motion. Right lower leg: Edema present. Left lower leg: Edema present. Skin: General: Skin is warm and dry. Capillary Refill: Capillary refill takes less than 2 seconds. Neurological: Mental Status: He is alert and oriented to person, place, and time. Psychiatric: Mood and Affect: Mood normal. Behavior: Behavior normal. Medications: Scheduled PRN apixaban, 5 mg, Oral, BID carvedilol, 25 mg, Oral, BID WC cholecalciferol, 4,000 Units, Oral, Daily furosemide, 80 mg, IntraVENous, BID metOLazone, 5 mg, Oral, Daily [Held by provider] sacubitril-valsartan, 1 tablet, Oral, BID sodium bicarbonate, 1,300 mg, Oral, BID PRN medications: acetaminophen OR acetaminophen, ondansetron ODT OR ondansetron, polyethylene glycol (PEG) 3350 Continuous Assessment Data: Acute, acute on chronic, unstable/uncontrolled chronic problems/diagnoses: HFrEF- TTE 05/2024 EF 20% Non ischemic cardiomyopathy SCHUYLER with history of CKD Chronic transaminitis- continue to monitor with daily labs Shortness of breath Persistent leg edema Stable chronic problems affecting care, new non-acute diagnoses: History of CAD Left heart catheterization 06/17/24, no interventions needed LBBB NSTEMI Hyperlipidemia DVT Noncompliance behavior Plan As a result of the above findings & factors, the following mgmt was pursued: - Hx of noncompliance, frequent admissions for SOB and edema - Cardiology consulted, appreciate recommendations; diuresis with 80 mg IV Lasix BID, Coreg 25 mg BID, held Entresto due to renal insufficiency, continue Metolazone but patient is refusing to take - Nephrology consulted, limited medical therapy 2/2 CKD, appreciate recommendations - Continue to monitor daily weight diuresis monitoring - Monitor renal and liver function with daily labs, Cr improved to 1.84 today - Continue to attempt daily labs - Supplemental O2 as needed - Low Na cardiac diet - Nursing to apply lucrecia wrap to bilateral lower extremities daily, and remove at night - am labs, replace lytes prn - PT/OT/CM/SW - delirium precautions: increase activity and limit nighttime disturbances - DVT prophylaxis: encourage ambulation and already anticoagulated Complexity: Chronic illness with mild to moderate exacerbation, progression, or side effect of tx (MOD). Risk: Prescription drug/IVF/colloid was initiated, discontinued, adjusted; or reviewed with decision to maintain current orders (MOD). Advance Directive: Full Code Anticipated Discharge - Date - TBD - Location - Home - Pending the following - symptom improvement and optimization of treatment by cardiology and nephrology Extended Emergency Contact Information Primary Emergency Contact: Kaitlin Hicks Mobile Relation: Significant Other Secondary Emergency Contact: Indira Medina Mobile Relation: Sister Nicole Cross Division of Hospitalist Medicine [facility] Cosigned by THOMAS Carlos CNP at 07/28/2024 2:36 PM EST [id number] Note* Medical Student - Nicole Cross - 07/27/2024 12:03 PM EST Hospitalist Progress Note 07/27/2024 Subjective: Admit Date: 07/23/2024 PCP: No primary care provider on file. Room#: [id number] A BRIEF HOSPITAL COURSE: Carlo is a 44 y.o. male with past medical history of heart failure with reduced ejection fraction, chronic kidney disease, left bundle branch block, hypertension, noncompliance behavior, history ofnon-ST elevation ND who presented to the emergency department with complaint of swelling in the legs and shortness of breath along with abnormal labs. Patient symptoms have been going on for last couple days and has been progressively getting worse. Patient had lab work done as an outpatient per cardiology recommendation. Patient was advised by them to double up on his diuretics as the swelling was persistent in his lower legs. Patient had gained 10 pounds since last admission about 1 week ago.Patient received a call from the cardiology office stating his renal function is getting worse. Patient continued to have worsening swelling and shortness of breath and was advised to come to the emergency department for further evaluation 07/25/24 Per cardiology continue 80mg IV Lasix BID and Metolazone 5 mg daily, strict I&Os, has life vest at home, not wearing it, refusing lab draws, meds, non compliance, palliative consulted, 5 admits in 202307/26/24: No overnight issues. Patient refusing daily labs. Discussed with patient importance of daily labs to monitor renal function. Patient resting in bed, NAD. Patient reports urinary frequency but discussed with patient this is due to diuresis with BID Lasix. Patient reports this is annoying but educated that it is necessary to maintain his cardiac function. Nephrology consulted today by cardiology as SCHUYLER on CKD is limiting cardiac treatment options. Interval History: 07/27/24: No overnight issues. Patient seen and examined in room. Patient resting in bed, NAD. Continues to be followed by cardiology and nephrology, appreciate their recommendations. Patient denies chest pain, SOB, N/V/D, and denies fever/chills. Bilateral legs wrapped, swelling improved but still present. Case and plan discussed with patient and bedside nurse. All questions answered. Adult diet Regular; Low Sodium (2 gm); 1800 ml 24HR INTAKE/OUTPUT: Intake/Output Summary (Last 24 hours) at 07/27/2024 1203 Last data filed at 07/26/2024 2356 Gross per 24 hour Intake 600 ml Output 3900 ml Net -3300 ml Past Medical History: Past Medical History: Diagnosis Date Acute HFrEF (heart failure with reduced ejection fraction) ([facility]) 06/13/2024 Acute kidney injury superimposed on CKD ([facility]) ([facility]) 07/03/2024 At risk for obstructive sleep apnea 05/31/2024 o/p sleep study recommended during admission CHF (congestive heart failure) ([facility]) CKD (chronic kidney disease) HFrEF (heart failure with reduced ejection fraction) ([facility]) 04/28/2024 History of left bundle branch block (LBBB) 06/19/2024 Hypercholesteremia Hypertension Noncompliance 06/19/2024 NSTEMI (non-ST elevated myocardial infarction) ([facility]) 07/11/2024 Pulmonary vascular congestion 04/28/2024 Sinus tachycardia 06/19/2024 LABS: CBC: Recent Labs 07/26/24 0907 07/27/24 0103 WBC 5.5 5.7 RBC 4.24* 4.16* HGB 14.1 13.8 HCT 43.0 42.4 MCV 101.4* 101.9* RDW 13.4 13.3 PLT 240 241 BMP: Recent Labs 07/26/24 0907 07/27/24 0103 NA 138 140 K 3.4* 3.6 CL 103 102 CO2 23 24 BUN 40* 35* CREATININE 2.14* 1.84* GLUCOSE 114* 95 CALCIUM 8.5 8.4 ANIONGAP 12 14* LIVER PROFILE: Recent Labs 07/26/24 0907 07/27/24 0103 AST 27 31 ALT 57* 60* BILITOT 1.4* 1.3* ALKPHOS 166* 175* PROT 5.9* 6.3* PT/INR: No results for input(s): PROTIME, INR in the last 72 hours. CARDIAC ENZYMES: No results for input(s): TROPONINI in the last 72 hours. Procalcitonin: No results found for: PROCAL COVID-19 PCR: No results for input(s): COVID19 in the last 72 hours. Objective: Vitals: BP 114/86 Pulse 107 Temp 36.6 C (97.8 F) (Temporal) Resp 17 Wt 182 lb (82.6 kg) SpO2 93% BMI 24.01 kg/m Pulse Ox: SpO2 Av % Min: 93 % Max: 99 % Supplemental O2: none Physical Exam Vitals and nursing note reviewed. Constitutional: Appearance: Normal appearance. HENT: Head: Normocephalic and atraumatic. Nose: Nose normal. Eyes: Extraocular Movements: Extraocular movements intact. Conjunctiva/sclera: Conjunctivae normal. Pupils: Pupils are equal, round, and reactive to light. Cardiovascular: Pulses: Normal pulses. Heart sounds: Normal heart sounds. Pulmonary: Effort: Pulmonary effort is normal. Breath sounds: Normal breath sounds. Abdominal: General: Bowel sounds are normal. Musculoskeletal: General: Normal range of motion. Cervical back: Normal range of motion. Right lower leg: Edema present. Left lower leg: Edema present. Skin: General: Skin is warm and dry. Capillary Refill: Capillary refill takes less than 2 seconds. Neurological: Mental Status: He is alert and oriented to person, place, and time. Psychiatric: Mood and Affect: Mood normal. Behavior: Behavior normal. Medications: Scheduled PRN apixaban, 5 mg, Oral, BID carvedilol, 25 mg, Oral, BID WC cholecalciferol, 4,000 Units, Oral, Daily furosemide, 80 mg, IntraVENous, BID metOLazone, 5 mg, Oral, Daily [Held by provider] sacubitril-valsartan, 1 tablet, Oral, BID sodium bicarbonate, 1,300 mg, Oral, BID PRN medications: acetaminophen OR acetaminophen, ondansetron ODT OR ondansetron, polyethylene glycol (PEG) 3350 Continuous Assessment Data: Acute, acute on chronic, unstable/uncontrolled chronic problems/diagnoses: HFrEF- TTE 05/2024 EF 20% Non ischemic cardiomyopathy SCHUYLER with history of CKD Chronic transaminitis- continue to monitor with daily labs Shortness of breath Persistent leg edema Stable chronic problems affecting care, new non-acute diagnoses: History of CAD Left heart catheterization 06/17/24, no interventions needed LBBB NSTEMI Hyperlipidemia DVT Noncompliance behavior Plan As a result of the above findings & factors, the following mgmt was pursued: - Hx of noncompliance, frequent admissions for SOB and edema - Cardiology consulted, appreciate recommendations; diuresis with 80 mg IV Lasix BID, Coreg 25 mg BID, held Entresto due to renal insufficiency, continue Metolazone but patient is refusing to take - Nephrology consulted, limited medical therapy 2/2 CKD, appreciate recommendations - Continue to monitor daily weight diuresis monitoring - Monitor renal and liver function with daily labs, Cr improved to 1.84 today - Continue to attempt daily labs - Supplemental O2 as needed - Low Na cardiac diet - Nursing to apply lucreica wrap to bilateral lower extremities daily, and remove at night - am labs, replace lytes prn - PT/OT/CM/SW - delirium precautions: increase activity and limit nighttime disturbances - DVT prophylaxis: encourage ambulation and already anticoagulated Complexity: Chronic illness with mild to moderate exacerbation, progression, or side effect of tx (MOD). Risk: Prescription drug/IVF/colloid was initiated, discontinued, adjusted; or reviewed with decision to maintain current orders (MOD). Advance Directive: Full Code Anticipated Discharge - Date - TBD - Location - Home - Pending the following - symptom improvement and optimization of treatment by cardiology and nephrology Extended Emergency Contact Information Primary Emergency Contact: Kaitlin Hicks Mobile Relation: Significant Other Secondary Emergency Contact: Indira Medina Mobile Relation: Sister Nicole Cross Division of Hospitalist Medicine [facility] Cosigned by THOMAS Carlos CNP at 07/28/2024 2:36 PM EST [id number] Plan of care note* Care Plan - King Lucas RN - 07/27/2024 12:26 AM EST Problem: Chronic Conditions and Co-morbidities Goal: Patient's chronic conditions and co-morbidity symptoms are monitored and maintained or improved Outcome: Progressing Flowsheets (Taken 07/27/2024 0026) Care Plan - Patient's Chronic Conditions and Co-Morbidity Symptoms are Monitored and Maintained or Improved: Monitor and assess patient's chronic conditions and comorbid symptoms for stability, deterioration,or improvement Collaborate with multidisciplinary team to address chronic and comorbid conditions and prevent exacerbation or deterioration Update acute care plan with appropriate goals if chronic or comorbid symptoms are exacerbated and prevent overall improvement and discharge Problem: Excessive Fluid Volume Goal: Fluid and electrolyte balance are achieved/maintained Outcome: Progressing [id number] Consult note* Anand Mccullough MD - 07/26/2024 5:47 PM EST . [facility] Nephrology Consultation Note Reason for consultation: SCHUYLER on CKD Chief Complaint: Swelling legs and SOB History of Presenting Illness Patient is a 44 y.o. male with past medical history of with past medical history of heart failure with reduced ejection fraction, chronic kidney disease, left bundle branch block, hypertension, noncompliance, history of non-ST elevation ND who presented to the emergency department with complaint ofswelling in the legs and shortness of breath along with abnormal labs. 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 Patient had lab work done as an outpatient per cardiology recommendation and was advised to come to the emergency department for further evaluation regarding worsening renal function. Admitted 07/23. Pertinent hx: 07/25/24 Per cardiology continue 80mg IV Lasix BID and Metolazone 5 mg daily. Multiple hospital admissions in the recent past. Nephrology is asked to see the patient for SCHUYLER/CKD in the setting of CHF exacerbation. Scr is currently 2.14 and has a baseline of 1.6-1.9 Patient was on ARB and diuretics. Patient was not using NSAIDS. Did not have recent exposure to IV contrast. Past Medical/Surgical History Past Medical History: Diagnosis Date Acute HFrEF (heart failure with reduced ejection fraction) ([facility]) 06/13/2024 Acute kidney injury superimposed on CKD ([facility]) ([facility]) 07/03/2024 At risk for obstructive sleep apnea 05/31/2024 o/p sleep study recommended during admission CHF (congestive heart failure) ([facility]) CKD (chronic kidney disease) HFrEF (heart failure with reduced ejection fraction) ([facility]) 04/28/2024 History of left bundle branch block (LBBB) 06/19/2024 Hypercholesteremia Hypertension Noncompliance 06/19/2024 NSTEMI (non-ST elevated myocardial infarction) ([facility]) 07/11/2024 Pulmonary vascular congestion 04/28/2024 Sinus tachycardia 06/19/2024 Past Surgical History: Procedure Laterality Date CARDIAC CATHETERIZATION N/A 06/17/2024 Performed by Akilah Diaz MD at [facility] 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 Review of Systems All 12 systems reviewed and are negative except for what is mentioned in the HPI. Allergies Patient has no known allergies. Family History Family History Problem Relation Name Age of Onset Heart disease Father Heart disease Brother Social History Social History Socioeconomic History Marital status: Single Tobacco Use Smoking status: Never Passive exposure: Never Smokeless tobacco: Never Vaping Use Vaping status: Never Used Substance and Sexual Activity Alcohol use: Never Drug use: Never Comment: caffeine: none Sexual activity: Yes Partners: Female Social Drivers of Health Financial Resource Strain: Low Risk (07/12/2024) Overall Financial Resource Strain (CARDIA) Difficulty of Paying Living Expenses: Not very hard Food Insecurity: No Food Insecurity (07/12/2024) Hunger Vital Sign Worried About Running Out of Food in the Last Year: Never true Ran Out of Food in the Last Year: Never true Transportation Needs: No Transportation Needs (07/12/2024) PRAPARE - Transportation Lack of Transportation (Medical): No Lack of Transportation (Non-Medical): No Physical Activity: Inactive (07/12/2024) Exercise Vital Sign Days of Exercise per Week: 0 days Minutes of Exercise per Session: 0 min Stress: Stress Concern Present (07/12/2024) [place] [employer] - Occupational Stress Questionnaire Feeling of Stress : To some extent Social Connections: Moderately Integrated (07/12/2024) Social Connection and Isolation Panel [NHANES] Frequency of Communication with Friends and Family: Twice a week Frequency of Social Gatherings with Friends and Family: Once a week Attends Holiness Services: 1 to 4 times per year Active Member of Clubs or Organizations: No Attends Club or Organization Meetings: Never Marital Status: Living with partner Intimate Partner Violence: Not At Risk (07/24/2024) Humiliation, Afraid, Rape, and Kick questionnaire Fear of Current or Ex-Partner: No Emotionally Abused: No Physically Abused: No Sexually Abused: No Housing Stability: Low Risk (07/12/2024) Housing Stability Vital Sign Unable to Pay for Housing in the Last Year: No Number of Times Moved in the Last Year: 0 Homeless in the Last Year: No Medications Medications Prior to Admission Medication Sig Dispense Refill Last Dose/Taking apixaban (Eliquis) 5 MG tablet Take 1 tablet (5 mg) by mouth 2 times daily. 60 tablet 3 carvedilol (Coreg) 25 MG tablet Take 1 tablet (25 mg) by mouth 2 times daily (with meals). 60 tablet 11 cholecalciferol (Vitamin D-3) 50 MCG (2000 UT) tablet Take 2 tablets (4,000 Units) by mouth daily. 180 tablet 0 furosemide (Lasix) 40 MG tablet Take 1 tablet (40 mg) by mouth daily. sacubitril-valsartan (Entresto) 97-103 MG tablet Take 1 tablet by mouth 2 times daily. 60 tablet 12 sodium bicarbonate 650 MG tablet Take 2 tablets (1,300 mg) by mouth 2 times daily. 360 tablet 0 spironolactone (Aldactone) 25 MG tablet Take 0.5 tablets (12.5 mg) by mouth daily. 15 tablet 11 Current Medications: apixaban, 5 mg, Oral, BID carvedilol, 25 mg, Oral, BID WC cholecalciferol, 4,000 Units, Oral, Daily furosemide, 80 mg, IntraVENous, BID metOLazone, 5 mg, Oral, Daily potassium chloride CR, 40 mEq, Oral, Once [Held by provider] sacubitril-valsartan, 1 tablet, Oral, BID sodium bicarbonate, 1,300 mg, Oral, BID Continuous Infusions: PRN Meds:PRN medications: acetaminophen OR acetaminophen, ondansetron ODT OR ondansetron, polyethylene glycol (PEG) 3350 Physical Exam Vitals: 07/26/24 0500 07/26/24 0855 07/26/24 1125 07/26/24 1537 BP: 111/85 96/80 117/84 BP Location: Right arm Patient Position: Lying Pulse: 106 107 103 Resp: 16 20 16 Temp: 36.3 C (97.4 F) 36.4 C (97.6 F) 36.3 C (97.4 F) TempSrc: Temporal Temporal Temporal SpO2: 97% 100% 98% Weight: 82.6 kg (182 lb) Input / Output: 24 HR: Intake/Output Summary (Last 24 hours) at 07/26/2024 1747 Last data filed at 07/26/2024 1723 Gross per 24 hour Intake 800 ml Output 6300 ml Net -5500 ml IV Intake: P.O. (mL): 600 mL Agustin: General: Awake and alert, cooperative to history and physical exam. Head: NCAT Eye conjunctiva normal Mouth mucus membrane moist Neck: NO thyromegaly, + JVD Chest: B/L equal air entry , No crackles, no accessory muscles usage. CV: s1s2 heard RRR, No murmurs or rubs Abdomen: NT, nonDistended, soft Bowel sounds present , No palpable masses Extremities: Trace BLE edema, no cyanosis or clubbing Skin Warm No rash Neurological: Oriented times three Speech clear coherent Psychiatric: Fair insight and judgement, good recall Data Recent Labs 07/23/24 2127 07/24/24 0600 07/26/24 0907 WBC 8.8 7.4 5.5 HGB 15.2 14.4 14.1 HCT 46.5 45.0 43.0 MCV 102.2* 103.7* 101.4* PLT 255 225 240 Recent Labs 07/24/24 0243 07/24/24 0600 07/26/24 0907 NA 138 138 138 K 4.4 4.3 3.4* CL 107 108* 103 CO2 19* 20* 23 GLUCOSE 107* 108* 114* MG 2.0 2.1 1.8 BUN 37* 38* 40* CREATININE 1.98* 2.19* 2.14* Albumin: No components found for: LABALBU Calcium: Lab Results Component Value Date CALCIUM 8.5 07/26/2024 Ionized Calcium: No components found for: IONCA Magnesium: Lab Results Component Value Date MG 1.8 07/26/2024 Phosphorus: No results found for: PHOS Imaging: ECHO 06/25 Left Ventricle: Left ventricle is dilated. Mildly increased wall thickness. Severely reduced left ventricular systolic function. EF by 2D Simpsons Biplane is 20%. Global longitudinal strain is reduced with a value of -5.0%. Severe global hypokinesis present. Right Ventricle: Right ventricle is dilated. Moderately reduced systolic function. Aortic Valve: Mild (1+) regurgitation. Mitral Valve: Moderate (2+) regurgitation with an eccentrically directed jet and and may underestimate severity. Tricuspid Valve: Moderately elevated RVSP. RVSP is 46 mmHg. Pericardium: Small (<1 cm) pericardial effusion present. Findings do not support cardiac tamponade. IVC/Hepatic Veins: IVC diameter is dilated and decreases less than 50% during inspiration; therefore the estimated right atrial pressure is elevated (~15 mmHg). Slow blood flow, echogenic. )No results found for: APPEARANCE, COLORU, LABSPEC, LABPH, URINE, GLUCOSEU, UROBILINOGEN, BILIRUBINUR, OCBU Chest XR 07/23/24 LUNGS AND PLEURAL SPACES: Unremarkable. No consolidation. No pneumothorax. HEART: Stable cardiomegaly. MEDIASTINUM: Unremarkable. Normal mediastinal contour. BONES/JOINTS: Unremarkable. No acute fracture. IMPRESSION: Stable cardiomegaly. No acute process. Assessment 44 y.o. male with SCHUYLER/ATN, possibly 2/2 hypoperfusion injury vs CRS (N17.0) Acute on chronic HFrEF exacerbation (I50.23) Hypokalemia Noncompliance with medication (Z91.1) CKD3b RECOMMENDATIONS: -Cr higher than baseline, signifying SCHUYLER on CKD, 2.24 on admission. -Agree with initial diuresis, appears to be reaching euvolemia, continue diuresis through tonight. -Consider changing to PO diuresis tomorrow. -Follow BNP for guided diuresis 26,294-->20,238-->18,824 -No TANK ERECTOR indicated at this time however patient at risk for renal failure given cardiac disease and possible multisystem failure. -Continue to hold Entresto and Spironolactone -Trend lytes and replace -K noted, supplementation ordered -Low Na diet -Needs daily standing weights and strict I&Os -Counseled for need of daily weights in the outpatient setting -Lucrecia wraps to BLE to help mobilize fluids -Avoid nephrotoxins and contrast dye -Dose all meds per current eGFR -Anticoagulation per primary team -Complex MDM -High risk of decompensation with noncompliance with medications/labs. -We will follow closely with you Thank you for asking us to participate in the management of your patient, please do not hesitate tocontact me for any concerns regarding my recommendations as outlined above. I can be easily reachedvia secure adicate timeads message SIGNATURE: Anand Mccullough MD PATIENT NAME: Carlo Medina DATE: July 26, 2024 Office [facility] [phone] [facility] Work Phone: [phone]) 814-883601-27-2025 Consult note* Anand Mccullough MD - 07/26/2024 5:47 PM EST . [facility] Nephrology Consultation Note Reason for consultation: SCHUYLER on CKD Chief Complaint: Swelling legs and SOB History of Presenting Illness Patient is a 44 y.o. male with past medical history of with past medical history of heart failure with reduced ejection fraction, chronic kidney disease, left bundle branch block, hypertension, noncompliance, history of non-ST elevation ND who presented to the emergency department with complaint ofswelling in the legs and shortness of breath along with abnormal labs. 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 Patient had lab work done as an outpatient per cardiology recommendation and was advised to come to the emergency department for further evaluation regarding worsening renal function. Admitted 07/23. Pertinent hx: 07/25/24 Per cardiology continue 80mg IV Lasix BID and Metolazone 5 mg daily. Multiple hospital admissions in the recent past. Nephrology is asked to see the patient for SCHUYLER/CKD in the setting of CHF exacerbation. Scr is currently 2.14 and has a baseline of 1.6-1.9 Patient was on ARB and diuretics. Patient was not using NSAIDS. Did not have recent exposure to IV contrast. Past Medical/Surgical History Past Medical History: Diagnosis Date Acute HFrEF (heart failure with reduced ejection fraction) ([facility]) 06/13/2024 Acute kidney injury superimposed on CKD ([facility]) ([facility]) 07/03/2024 At risk for obstructive sleep apnea 05/31/2024 o/p sleep study recommended during admission CHF (congestive heart failure) ([facility]) CKD (chronic kidney disease) HFrEF (heart failure with reduced ejection fraction) ([facility]) 04/28/2024 History of left bundle branch block (LBBB) 06/19/2024 Hypercholesteremia Hypertension Noncompliance 06/19/2024 NSTEMI (non-ST elevated myocardial infarction) ([facility]) 07/11/2024 Pulmonary vascular congestion 04/28/2024 Sinus tachycardia 06/19/2024 Past Surgical History: Procedure Laterality Date CARDIAC CATHETERIZATION N/A 06/17/2024 Performed by Akilah Diaz MD at [facility] 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 Review of Systems All 12 systems reviewed and are negative except for what is mentioned in the HPI. Allergies Patient has no known allergies. Family History Family History Problem Relation Name Age of Onset Heart disease Father Heart disease Brother Social History Social History Socioeconomic History Marital status: Single Tobacco Use Smoking status: Never Passive exposure: Never Smokeless tobacco: Never Vaping Use Vaping status: Never Used Substance and Sexual Activity Alcohol use: Never Drug use: Never Comment: caffeine: none Sexual activity: Yes Partners: Female Social Drivers of Health Financial Resource Strain: Low Risk (07/12/2024) Overall Financial Resource Strain (CARDIA) Difficulty of Paying Living Expenses: Not very hard Food Insecurity: No Food Insecurity (07/12/2024) Hunger Vital Sign Worried About Running Out of Food in the Last Year: Never true Ran Out of Food in the Last Year: Never true Transportation Needs: No Transportation Needs (07/12/2024) PRAPARE - Transportation Lack of Transportation (Medical): No Lack of Transportation (Non-Medical): No Physical Activity: Inactive (07/12/2024) Exercise Vital Sign Days of Exercise per Week: 0 days Minutes of Exercise per Session: 0 min Stress: Stress Concern Present (07/12/2024) [place] [employer] - Occupational Stress Questionnaire Feeling of Stress : To some extent Social Connections: Moderately Integrated (07/12/2024) Social Connection and Isolation Panel [NHANES] Frequency of Communication with Friends and Family: Twice a week Frequency of Social Gatherings with Friends and Family: Once a week Attends Holiness Services: 1 to 4 times per year Active Member of Clubs or Organizations: No Attends Club or Organization Meetings: Never Marital Status: Living with partner Intimate Partner Violence: Not At Risk (07/24/2024) Humiliation, Afraid, Rape, and Kick questionnaire Fear of Current or Ex-Partner: No Emotionally Abused: No Physically Abused: No Sexually Abused: No Housing Stability: Low Risk (07/12/2024) Housing Stability Vital Sign Unable to Pay for Housing in the Last Year: No Number of Times Moved in the Last Year: 0 Homeless in the Last Year: No Medications Medications Prior to Admission Medication Sig Dispense Refill Last Dose/Taking apixaban (Eliquis) 5 MG tablet Take 1 tablet (5 mg) by mouth 2 times daily. 60 tablet 3 carvedilol (Coreg) 25 MG tablet Take 1 tablet (25 mg) by mouth 2 times daily (with meals). 60 tablet 11 cholecalciferol (Vitamin D-3) 50 MCG (2000 UT) tablet Take 2 tablets (4,000 Units) by mouth daily. 180 tablet 0 furosemide (Lasix) 40 MG tablet Take 1 tablet (40 mg) by mouth daily. sacubitril-valsartan (Entresto) 97-103 MG tablet Take 1 tablet by mouth 2 times daily. 60 tablet 12 sodium bicarbonate 650 MG tablet Take 2 tablets (1,300 mg) by mouth 2 times daily. 360 tablet 0 spironolactone (Aldactone) 25 MG tablet Take 0.5 tablets (12.5 mg) by mouth daily. 15 tablet 11 Current Medications: apixaban, 5 mg, Oral, BID carvedilol, 25 mg, Oral, BID WC cholecalciferol, 4,000 Units, Oral, Daily furosemide, 80 mg, IntraVENous, BID metOLazone, 5 mg, Oral, Daily potassium chloride CR, 40 mEq, Oral, Once [Held by provider] sacubitril-valsartan, 1 tablet, Oral, BID sodium bicarbonate, 1,300 mg, Oral, BID Continuous Infusions: PRN Meds:PRN medications: acetaminophen OR acetaminophen, ondansetron ODT OR ondansetron, polyethylene glycol (PEG) 3350 Physical Exam Vitals: 07/26/24 0500 07/26/24 0855 07/26/24 1125 07/26/24 1537 BP: 111/85 96/80 117/84 BP Location: Right arm Patient Position: Lying Pulse: 106 107 103 Resp: 16 20 16 Temp: 36.3 C (97.4 F) 36.4 C (97.6 F) 36.3 C (97.4 F) TempSrc: Temporal Temporal Temporal SpO2: 97% 100% 98% Weight: 82.6 kg (182 lb) Input / Output: 24 HR: Intake/Output Summary (Last 24 hours) at 07/26/2024 1747 Last data filed at 07/26/2024 1723 Gross per 24 hour Intake 800 ml Output 6300 ml Net -5500 ml IV Intake: P.O. (mL): 600 mL Agustin: General: Awake and alert, cooperative to history and physical exam. Head: NCAT Eye conjunctiva normal Mouth mucus membrane moist Neck: NO thyromegaly, + JVD Chest: B/L equal air entry , No crackles, no accessory muscles usage. CV: s1s2 heard RRR, No murmurs or rubs Abdomen: NT, nonDistended, soft Bowel sounds present , No palpable masses Extremities: Trace BLE edema, no cyanosis or clubbing Skin Warm No rash Neurological: Oriented times three Speech clear coherent Psychiatric: Fair insight and judgement, good recall Data Recent Labs 07/23/24 2127 07/24/24 0600 07/26/24 0907 WBC 8.8 7.4 5.5 HGB 15.2 14.4 14.1 HCT 46.5 45.0 43.0 MCV 102.2* 103.7* 101.4* PLT 255 225 240 Recent Labs 07/24/24 0243 07/24/24 0600 07/26/24 0907 NA 138 138 138 K 4.4 4.3 3.4* CL 107 108* 103 CO2 19* 20* 23 GLUCOSE 107* 108* 114* MG 2.0 2.1 1.8 BUN 37* 38* 40* CREATININE 1.98* 2.19* 2.14* Albumin: No components found for: LABALBU Calcium: Lab Results Component Value Date CALCIUM 8.5 07/26/2024 Ionized Calcium: No components found for: IONCA Magnesium: Lab Results Component Value Date MG 1.8 07/26/2024 Phosphorus: No results found for: PHOS Imaging: ECHO 06/25 Left Ventricle: Left ventricle is dilated. Mildly increased wall thickness. Severely reduced left ventricular systolic function. EF by 2D Simpsons Biplane is 20%. Global longitudinal strain is reduced with a value of -5.0%. Severe global hypokinesis present. Right Ventricle: Right ventricle is dilated. Moderately reduced systolic function. Aortic Valve: Mild (1+) regurgitation. Mitral Valve: Moderate (2+) regurgitation with an eccentrically directed jet and and may underestimate severity. Tricuspid Valve: Moderately elevated RVSP. RVSP is 46 mmHg. Pericardium: Small (<1 cm) pericardial effusion present. Findings do not support cardiac tamponade. IVC/Hepatic Veins: IVC diameter is dilated and decreases less than 50% during inspiration; therefore the estimated right atrial pressure is elevated (~15 mmHg). Slow blood flow, echogenic. )No results found for: APPEARANCE, COLORU, LABSPEC, LABPH, URINE, GLUCOSEU, UROBILINOGEN, BILIRUBINUR, OCBU Chest XR 07/23/24 LUNGS AND PLEURAL SPACES: Unremarkable. No consolidation. No pneumothorax. HEART: Stable cardiomegaly. MEDIASTINUM: Unremarkable. Normal mediastinal contour. BONES/JOINTS: Unremarkable. No acute fracture. IMPRESSION: Stable cardiomegaly. No acute process. Assessment 44 y.o. male with SCHUYLER/ATN, possibly 2/2 hypoperfusion injury vs CRS (N17.0) Acute on chronic HFrEF exacerbation (I50.23) Hypokalemia Noncompliance with medication (Z91.1) CKD3b RECOMMENDATIONS: -Cr higher than baseline, signifying SCHUYLER on CKD, 2.24 on admission. -Agree with initial diuresis, appears to be reaching euvolemia, continue diuresis through tonight. -Consider changing to PO diuresis tomorrow. -Follow BNP for guided diuresis 26,294-->20,238-->18,824 -No TANK ERECTOR indicated at this time however patient at risk for renal failure given cardiac disease and possible multisystem failure. -Continue to hold Entresto and Spironolactone -Trend lytes and replace -K noted, supplementation ordered -Low Na diet -Needs daily standing weights and strict I&Os -Counseled for need of daily weights in the outpatient setting -Lucrecia wraps to BLE to help mobilize fluids -Avoid nephrotoxins and contrast dye -Dose all meds per current eGFR -Anticoagulation per primary team -Complex MDM -High risk of decompensation with noncompliance with medications/labs. -We will follow closely with you Thank you for asking us to participate in the management of your patient, please do not hesitate tocontact me for any concerns regarding my recommendations as outlined above. I can be easily reachedvia secure adicate timeads message SIGNATURE: Anand Mccullough MD PATIENT NAME: Carlo Medina DATE: July 26, 2024 Office [facility] [phone] * Chuyita Holloway MD - 07/25/2024 11:27 AM ESTAssociated Order(s): IP CONSULT TO PALLIATIVE CARE Images from the original note were not included. Palliative Care Initial Consult Chief Complaint: Carlo is a 44 y.o. male with chief complaint of SOB Palliative care consulted for goals of care Palliative Care is actively following. Assessment/Plan Goals of care Carlo Medina retains capacity for medical decision-making -legal surrogate decision maker is Zena levy - met with patient this afternoon, introduced self and role - patient stated he lives with his girlfriend Loco, stated had adult daughter of 20 yrs [place] - discussed HCPOA, patient stated he wants his girlfriend to make decisions for him and not his daughter - encouraged patient to fill HCPOA document, consulted social staff worker for assistance - discussed goals, discussed patient's EF of 20 %, his medical compliance - discussed CPR, Intubation, Vent - patient stated that he feels fine, he wants everything done for him including CPR, intubation, Vent - Code status remains Full Code - will request palliative mold maker apprentice for support - discussed with Bending Shed Worker Dr. Lassiter - will continue to have ongoing goals of care conversations with patient, family Acute on chronic HFrEF (20% 05/2024) due to non-ischemic CMP - patient with repeated hospitalizations for HF exacerbation, mostly due to his non compliance - had 5 admissions 2023 - patient remains on IV lasix 80 mg twice daily - pt has a life vest at home - discussed with cardiology team Nonsustained VT/ Intermittent LBBB - life vest was ordered for home - remains on high dose coreg B/L LE DVT - on elliquis SCHUYLER on CKD - per cardiology notes one reason for his renal dysfunction is likely due to poor cardiac output - creatinine 2.19 today Palliative Care Encounter -Code Status: Full Code - will continue to follow for ongoing monitoring of progression of Dyspnea and Constipation as wellas for appropriateness for hospice care due to CHF - will continue to evaluate test results related to CHF, medication effectiveness for Dyspnea and Constipation, response to treatment of CHF - obtaining testing as needed to monitor medication results:N/A PC Time Stamp: Total of 85 minutes spent on this encounter including Chart review, Patient visit and exam, Documentation in EHR, Care coordination, and Communicating with primary attending or other consultants. Discharge planning: Not ready for discharge due to ongoing goals of care discussion Patient meets criteria for general inpatient hospice care: No Palliative Care IDT members involved: Pastoral Care Discussed the plan of care with the other interdisciplinary team (IDT) members of the Palliative Care and Hospice teams and Patient and Consultants. Subjective: Subjective/Events Carlo Medina is a 44 y.o. male with PMHx of HFrEF, CKD, HTN, HLP, Nonsustained VT/ Intermittent LBBB with life vest, Chronic medical non compliance who was admitted to [facility] on 07/23/24 with complain of SOB and leg swelling. Palliative care consulted by cardiology for goals of care. 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 [place] Symptom Assessment Score [place] Score Pain Score (if non-verbal, add .FLACC below) 0 Tiredness Score 4 Nausea Score 0 Depression Score 0 Anxiety Score 0 Drowsiness Score 0 Anorexia Score (0= eating well, 10= not eating) 0 Wellbeing Score (10= worst sense of well-being) 4 Constipation 0 Dyspnea Score (0= no shortness of breath) 0 Family Meeting: Participants: patient Family meeting was held to discuss:Diagnosis and Prognosis, Goals of Care, Treatment Options, Symptom Management, Advanced Care Planning, Prior Expressed Wishes, and Discharge Plan Past Medical History: Diagnosis Date Acute HFrEF (heart failure with reduced ejection fraction) ([facility]) 06/13/2024 Acute kidney injury superimposed on CKD ([facility]) ([facility]) 07/03/2024 At risk for obstructive sleep apnea 05/31/2024 o/p sleep study recommended during admission CHF (congestive heart failure) ([facility]) CKD (chronic kidney disease) HFrEF (heart failure with reduced ejection fraction) ([facility]) 04/28/2024 History of left bundle branch block (LBBB) 06/19/2024 Hypercholesteremia Hypertension Noncompliance 06/19/2024 NSTEMI (non-ST elevated myocardial infarction) ([facility]) 07/11/2024 Pulmonary vascular congestion 04/28/2024 Sinus tachycardia 06/19/2024 Past Surgical History: Procedure Laterality Date CARDIAC CATHETERIZATION N/A 06/17/2024 Performed by Akilah Diaz MD at [facility] 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 Family History Problem Relation Name Age of Onset Heart disease Father Heart disease Brother Unable to obtain family history due to N/A- family history available No Known Allergies Objective: BP 117/88 Pulse 100 Temp 36.1 C (97 F) (Temporal) Resp 16 Wt 185 lb (83.9 kg) SpO2 100% BMI 24.41 kg/m Physical Exam Constitutional: Appearance: He is ill-appearing. HENT: Head: Normocephalic. Right Ear: External ear normal. Nose: Nose normal. Mouth/Throat: Mouth: Mucous membranes are moist. Eyes: General: No scleral icterus. Right eye: No discharge. Left eye: No discharge. Conjunctiva/sclera: Conjunctivae normal. Pupils: Pupils are equal, round, and reactive to light. Cardiovascular: Rate and Rhythm: Tachycardia present. Pulses: Normal pulses. Heart sounds: Normal heart sounds. No murmur heard. Pulmonary: Effort: Pulmonary effort is normal. No respiratory distress. Breath sounds: No stridor. No wheezing. Abdominal: General: Bowel sounds are normal. There is no distension. Palpations: Abdomen is soft. Musculoskeletal: General: Swelling present. Left lower leg: Edema present. Skin: General: Skin is warm. Coloration: Skin is not jaundiced. Neurological: Mental Status: He is oriented to person, place, and time. Cranial Nerves: No cranial nerve deficit. Motor: Weakness present. Psychiatric: Mood and Affect: Mood normal. Medication information: 24-hour PRN meds received: Zofran 4 mg IV x 1 Results/Verification of Data Review Objective data reviewed (must include dates reviewed for labs, imaging reports and other specialty notes): - labs, imaging, OARRS reviewed 07/25/24 Data in Support of Terminal Illness: Is patient hospice appropriate? TBD Transition Note Initiated: yes Chuyita Holloway MD * Angel Luis Lassiter MD - 07/24/2024 11:54 AM ESTAssociated Order(s): IP CONSULT TO CARDIOLOGY [facility] Cardiology Consult Note Reason for Consult/Chief Complaint: HF Established radar engineer: Leatha/[facility]y HF specialist History of Present Illness: Carlo Medina is a 44 y.o. male nonischemic cardiomyopathy with severe biventricular failure, lastEF measured 20% per transthoracic echo June 15, 2024. Hx of [facility] adm due to poor compliance and poor health literacy. He has had extended and multiple discussions about medical Rx. Recently noted to have increased wt as outpt at [facility] and K+5.8 was subsequently found. Prior to that: Was Dc'd 07/[address] [facility]. That note says they tried to keep pt in hospital for further mgt but he insisted on going home as he felt well. Interestingly, he is angry about that visit because he says theydid not help him and sent him home volume overloaded. Lasix was 20 mg daily. The discrepancy between those stories is very concerning and I wonder if it will ever be possible that he will understand or believe what is happening to him. It is not clear to me whether he is in denial, lying, malingering. Not surprisingly, he was readm for HF shortly thereafter 07/11 to [facility]. Was Dc'd 07/16 from [facility] w/lasix 20 PRN daily for wt gain Seen outpt; increased volume, rec to incr lasix to 40 bid then go to 40 daily; Got BMP which showedK 5.8. Apparently on that visit he was also not taking Entresto or aldactone. Adm SOB, elev K+. Wt gain 10 lbs from a month ago. LE swelling. Pt angry that he is back in hospital. Does not want to go back [facility] hospital Seems willing to do [facility] HF clinic when I told him it was outpt. Assessment/Plan HF NYHA Class [] I [] II [x] III [] IV []Unable to assess Acute on chronic HFrEF (20% 05/2024) due to non-ischemic CMP: Heart cath 06/17/2024 ruled out coronary disease, cardiomyopathy is not ischemic in origin Suspect possible origins include history of poorly controlled hypertension for years and/or genetic(father- sudden cardiac , brother - HF, alive). P/w SOB, LE edema, increased wt and increase ProBNP level 2nd highest since testing began (26K). Diuretics: Lasix 80 iv bid; consider metolazone additional if needed; target 1-2 L neg/day HF Beta jerome: coreg 25 bid LUCRECIA/ARB/ARNI: Restart Entresto /; close f/u of renal fxn/K+ level MRA: None 2nd CKD and recent hyperkalemia; this could be used with Lokelma but doubt he would agreeto take. Vasodilator: None SGLT2i: None 2nd to keep med regimen simplier Corlanor: Appropriate outpt candidate for this med; Doubt would use 2nd to keep med regimen simplier Digoxin: None 2nd to keep med regimen simplier Anticoagulation: OAC for DVT (mgt per primary) ICD/HRIS ANALYST: Candidate for HRIS ANALYST-D if LBBB became chronic but would need to agree to [facility] evaluation as outpt Last CPET: none Last RHC: C/w low outpt HF. Volume compensated. LVAD/OHT eligibility: No; noncompliant with recommendations Screening for MONTSE: unknown CKD. GFR36. One reason for his renal dysfunction is likely due to poor cardiac output -Daily BMP -Given hyperkalemia may not be able to tolerate full GDMT HTN. Stable. Target <130/80 mmHg; lower if able to tolerate to allow function of HF meds. - Continue antihypertensives Recent DVT. -Cont Eliquis mgt per primary service Nonsustained VT/ Intermittent LBBB Seen previously, rec and arranged for LifeVest. Doubt compliant -Continue high-dose carvedilol Noncompliance/ Medical literacy/ Social support/ Code He is strongly recommended for Adv HF mgt at [facility] HF clinic; this is supported by his B radar engineer Dr. Zhang. Very high risk for readmission. Appropriate for cardiac rehab if he would attend Noncompliance likely due to multiple factors not all known at this time (medical literacy and social support are issues) contribute to this risk and his poor prognosis oysterman. There may be an opportunity for improved LVEF and outcome with maximal treatment and if compliant even other advanced therapies. But he is unlikely to have a better prognosis if he is unable/unwilling to accept care at a higher level. Code is Full; Palliative d/w him 05/2024 that if he does not take care of himself and comply he will and early . If not willing to comply with therapies then hospice would be appropriate. Hehas a hard time understanding that his HF is not just an issue that brings him back to the hospitalbut shortens his life and can kill him. Dispo. Agree with need for aggressive diuresis; unlike prior admissions pt says he wants all his leg swelling better before being discharged as opposed to being Dc'd just because he is feeling better which has been his prior demand. To the primary service - please arrange outpt PCP f/u MDM. High risk dx of severe HF. If cannot be managed here would favor txf to [facility] but pt would likely refuse as he did the last time. Medications: apixaban, 5 mg, Oral, BID carvedilol, 25 mg, Oral, BID WC cholecalciferol, 4,000 Units, Oral, Daily furosemide, 40 mg, IntraVENous, Daily sacubitril-valsartan, 1 tablet, Oral, BID sodium bicarbonate, 1,300 mg, Oral, BID Infusion Medications: Physical Examination: Vitals: 07/24/24 0900 07/24/24 1000 07/24/24 1100 07/24/24 1125 BP: 127/94 BP Location: Left arm Patient Position: Lying Pulse: 104 104 109 104 Resp: 18 Temp: (!) 35.9 C (96.6 F) TempSrc: Temporal SpO2: (!) 84% 100% No intake or output data in the 24 hours ending 07/24/24 1154 Wt Readings from Last 3 Encounters: 07/21/24 189 lb 3.2 oz (85.8 kg) 07/16/24 179 lb 10.8 oz (81.5 kg) 07/07/24 177 lb 6.4 oz (80.5 kg) Physical Exam Constitutional: No acute distress. Well nourished. Over-hydrated Psychiatric: A &O x 3. Medical insight poor NMT: Oral mucosa is pink and moist Neck: No JVD. +HJR Respiratory: Lungs are clear Cardiac exam: Rhythm: RRR tachy ; Normal S1 and S2 Murmur: None Other: No rub; no gallop Vasc: Peripheral pulses 2+ Abdomen: Soft, +BS Extremities: 2-3+ evans LE edema Skin: Warm to touch and well perfused Laboratory Tests: TROPONIN I, CONVENTIONAL SENSITIVITY TROPONIN I Date Value Ref Range Status 05/28/2024 0.037 (H) <0.034 ng/mL Final 05/28/2024 0.051 (H) <0.034 ng/mL Final 04/28/2024 0.032 <0.034 ng/mL Final 04/28/2024 0.025 <0.034 ng/mL Final 04/28/2024 0.020 <0.034 ng/mL Final TROPONIN I, HIGH SENSITIVITY Troponin HS, Serial Baseline Date Value Ref Range Status 07/23/2024 33 <=35 ng/L Final 07/11/2024 218 (HH) <=35 ng/L Final 07/03/2024 39 (H) <=35 ng/L Final 06/18/2024 44 (H) <=35 ng/L Final 06/13/2024 50 (H) <=35 ng/L Final Troponin HS, Serial Second Date Value Ref Range Status 07/23/2024 30 <=35 ng/L Final 07/11/2024 221 (HH) <=35 ng/L Final 07/03/2024 33 <=35 ng/L Final 06/13/2024 53 (H) <=35 ng/L Final Troponin HS Delta, Baseline to Second Date Value Ref Range Status 07/11/2024 3 <=2 ng/L Final Comment: A troponin delta greater than or equal to 15 ng/L is significant for acute cardiac injury. Values less than 15 but greater than 2 are an intermediate change requiring a 3rd serial troponin to be drawn. Values less than or equal to 2 indicate acute cardiac injury is not likely, see external algorithmsfor further clinical guidance. 07/03/2024 -6 <=2 ng/L Final Comment: This specimen was collected more than 20 minutes away from the 2 hour target. Use of this delta with the 2 hour troponin algorithm is not recommended, individualized clinical assessment is needed. A troponin delta greater than or equal to 15 ng/L is significant for acute cardiac injury. Values less than 15 but greater than 2 are an intermediate change requiring a 3rd serial troponin to be drawn. Values less than or equal to 2 indicate acute cardiac injury is not likely, see external algorithmsfor further clinical guidance. 06/13/2024 3 <=2 ng/L Final Comment: This specimen was collected more than 20 minutes away from the 2 hour target. Use of this delta with the 2 hour troponin algorithm is not recommended, individualized clinical assessment is needed. A troponin delta greater than or equal to 15 ng/L is significant for acute cardiac injury. Values less than 15 but greater than 2 are an intermediate change requiring a 3rd serial troponin to be drawn. Values less than or equal to 2 indicate acute cardiac injury is not likely, see external algorithmsfor further clinical guidance. Troponin HS, Serial Third Date Value Ref Range Status 07/12/2024 218 (HH) <=35 ng/L Final 06/13/2024 49 (H) <=35 ng/L Final Troponin HS Delta, Second to Third Date Value Ref Range Status 07/12/2024 -3 <=2 ng/L Final Comment: A troponin delta greater than or equal to 15 ng/L is suggestive of acute cardiac injury. Values less than 15, see clinical guidance for ED and Inpatient algorithms. 06/13/2024 -4 <=2 ng/L Final Comment: This specimen was collected more than 20 minutes away from the 2 hour target. Use of this delta with the 2 hour troponin algorithm is not recommended, individualized clinical assessment is needed. A troponin delta greater than or equal to 15 ng/L is suggestive of acute cardiac injury. Values less than 15, see clinical guidance for ED and Inpatient algorithms. Recent Labs 07/23/24 2127 07/24/24 0243 07/24/24 0600 NA 140 138 138 K 4.6 4.4 4.3 CL 106 107 108* CO2 19* 19* 20* BUN 37* 37* 38* CREATININE 2.24* 1.98* 2.19* EGFR 35.7* 41.4* 36.7* Recent Labs 07/23/24212607/24/24 0600 WBC 8.8 7.4 HGB 15.2 14.4 HCT 46.5 45.0 MCV 102.2* 103.7* PLT 255 225 Lab Results Component Value Date HGBA1C 5.0 03/01/2024 Lab Results Component Value Date TSH 3.18 07/23/2024 Lab Results Component Value Date CHOL 130 06/14/2024 CHOL 172 02/29/2024 Lab Results Component Value Date HDL 16 (L) 06/14/2024 HDL 28 (L) 02/29/2024 Lab Results Component Value Date LDLCALC 100 (H) 06/14/2024 LDLCALC 126 (H) 02/29/2024 Lab Results Component Value Date TRIG 68 06/14/2024 TRIG 88 02/29/2024 No results found for: CHOLHDL No results found for: LDLCHOLESTER Recent Labs 07/23/24212607/24/24 0600 BNP 26,294* 20,238* No results for input(s): INR in the last 72 hours. No results found for: IRON, TIBC, FERRITIN Radiology: CXR: personally reviewed: Cardiomegaly. No obvious pulm edema or effusions. Cardiac Tests Personally Reviewed: Last EKG 07/23/24 ECG 12-LEAD 07/23/2024 9:59 PM (Final) Impression Sinus tachycardia Anterior infarct, old Electronically Signed On 07-23-2024 21:59:14 EST by Bertha Pichardo Signed by: Bertha Pichardo on 07/23/2024 9:59 PM Telemetry findings: Sinus tach Reports reviewed: Last Echo 06/13/24 TRANSTHORACIC ECHOCARDIOGRAM (TTE) COMPLETE (CONTRAST/BUBBLE/3D PRN) 06/15/2024 1:59 PM (Final) Interpretation Summary Left Ventricle: Left ventricle is dilated. Mildly increased wall thickness. Severely reduced left ventricular systolic function. EF by 2D Simpsons Biplane is 20%. Global longitudinal strain is reduced with a value of -5.0%. Severe global hypokinesis present. Right Ventricle: Right ventricle is dilated. Moderately reduced systolic function. Aortic Valve: Mild (1+) regurgitation. Mitral Valve: Moderate (2+) regurgitation with an eccentrically directed jet and and may underestimate severity. Tricuspid Valve: Moderately elevated RVSP. RVSP is 46 mmHg. Pericardium: Small (<1 cm) pericardial effusion present. Findings do not support cardiac tamponade. IVC/Hepatic Veins: IVC diameter is dilated and decreases less than 50% during inspiration; therefore the estimated right atrial pressure is elevated (~15 mmHg). Slow blood flow, echogenic. Signed by: Ofelia Villalobos on 06/15/2024 1:59 PM Last Cath 06/13/24 CARDIAC PROCEDURE 06/17/2024 11:14 AM (Final) Conclusion No significant epicardial coronary artery disease Milldy elevated right heart pressures: RA 7 mmHg, mean PA pressure 27 mmHg Elevated PCWP ~ 23mmHg, and LVEDP ~ 25 mmHg Decreased cardiac output/index. By Rodney, output: 3/0 L/min index 1.5: By thermodilution, output: 3.1 L/min index: SVR ~ 2200 Signed by: Akilah Diaz on 06/17/2024 11:14 AM Last Stress Test No results found for this or any previous visit. Last EP study No results found for this or any previous visit. EF BP Date Value Ref Range Status 06/15/2024 20 (A) 55 - 100 % Final Angel Luis Lassiter MD DATE of SERVICE: 07/24/2024 documented in this [facility]01-27-2025 Nurse Note* Raj Chilel RN - 07/26/2024 5:31 PM EST Pt refusing carvedilol and potassium at this time, states he doesn't take meds until 2099. Medication moved to 2099. [id number]* Raj Chilel RN - 07/26/2024 5:21 PM EST At this time patient is upset that he was put on a fluid restriction diet and, nobody told him. This nurse educated importance of adhering to fluid restriction due to IV lasix therapy and water retention. Patient states he just wanted an extra soda at dinner. This nurse educated how much patient was allowed to have in 24 hours. Patient verbalized understanding. This nurse called down for an extra soda. See I's & O's in flowsheets. [id number]* Medical Student - Nicole Cross - 07/26/2024 1:22 PM EST Hospitalist Progress Note 07/26/2024 Subjective: Admit Date: 07/23/2024 PCP: No primary care provider on file. Room#: B2-268/B2-268 A BRIEF HOSPITAL COURSE: Carlo is a 44 y.o. male with past medical history of heart failure with reduced ejection fraction, chronic kidney disease, left bundle branch block, hypertension, noncompliance behavior, history ofnon-ST elevation ND who presented to the emergency department with complaint of swelling in the legs and shortness of breath along with abnormal labs. Patient symptoms have been going on for last couple days and has been progressively getting worse. Patient had lab work done as an outpatient per cardiology recommendation. Patient was advised by them to double up on his diuretics as the swelling was persistent in his lower legs. Patient had gained 10 pounds since last admission about 1 week ago.Patient received a call from the cardiology office stating his renal function is getting worse. Patient continued to have worsening swelling and shortness of breath and was advised to come to the emergency department for further evaluation 07/25/24 Per cardiology continue 80mg IV Lasix BID and Metolazone 5 mg daily, strict I&Os, has life vest at home, not wearing it, refusing lab draws, meds, non compliance, palliative consulted, 5 admits in 2023 Interval History: 07/26/24: No overnight issues. Patient refusing daily labs. Discussed with patient importance of daily labs to monitor renal function. Patient resting in bed, NAD. Patient reports urinary frequency but discussed with patient this is due to diuresis with BID Lasix. Patient reports this is annoying but educated that it is necessary to maintain his cardiac function. Nephrology consulted today by cardiology as SCHUYLER on CKD is limiting cardiac treatment options. Case and plan discussed with patient and bedside nurse. All questions answered. Adult diet Regular; Low Sodium (2 gm) 24HR INTAKE/OUTPUT: Intake/Output Summary (Last 24 hours) at 07/26/2024 1322 Last data filed at 07/26/2024 1310 Gross per 24 hour Intake 200 ml Output 6300 ml Net -6100 ml Past Medical History: Past Medical History: Diagnosis Date Acute HFrEF (heart failure with reduced ejection fraction) ([facility]) 06/13/2024 Acute kidney injury superimposed on CKD ([facility]) ([facility]) 07/03/2024 At risk for obstructive sleep apnea 05/31/2024 o/p sleep study recommended during admission CHF (congestive heart failure) ([facility]) CKD (chronic kidney disease) HFrEF (heart failure with reduced ejection fraction) ([facility]) 04/28/2024 History of left bundle branch block (LBBB) 06/19/2024 Hypercholesteremia Hypertension Noncompliance 06/19/2024 NSTEMI (non-ST elevated myocardial infarction) ([facility]) 07/11/2024 Pulmonary vascular congestion 04/28/2024 Sinus tachycardia 06/19/2024 LABS: CBC: Recent Labs 07/23/24 2127 07/24/24 0600 07/26/24 0907 WBC 8.8 7.4 5.5 RBC 4.55 4.34* 4.24* HGB 15.2 14.4 14.1 HCT 46.5 45.0 43.0 MCV 102.2* 103.7* 101.4* RDW 13.8 13.9 13.4 PLT 255 225 240 BMP: Recent Labs 07/24/24 0243 07/24/24 0600 07/26/24 0907 NA 138 138 138 K 4.4 4.3 3.4* CL 107 108* 103 CO2 19* 20* 23 BUN 37* 38* 40* CREATININE 1.98* 2.19* 2.14* GLUCOSE 107* 108* 114* CALCIUM 8.3* 8.5 8.5 ANIONGAP 12 10 12 LIVER PROFILE: Recent Labs 07/26/24 0907 AST 27 ALT 57* BILITOT 1.4* ALKPHOS 166* PROT 5.9* PT/INR: No results for input(s): PROTIME, INR in the last 72 hours. CARDIAC ENZYMES: No results for input(s): TROPONINI in the last 72 hours. Procalcitonin: No results found for: PROCAL COVID-19 PCR: No results for input(s): COVID19 in the last 72 hours. Objective: Vitals: BP 96/80 Pulse 107 Temp 36.4 C (97.6 F) (Temporal) Resp 20 Wt 182 lb (82.6 kg) SpO2 100% BMI 24.01 kg/m Pulse Ox: SpO2 Av.3 % Min: 93 % Max: 100 % Supplemental O2: Physical Exam Vitals and nursing note reviewed. Constitutional: Appearance: Normal appearance. HENT: Head: Normocephalic and atraumatic. Nose: Nose normal. Mouth/Throat: Mouth: Mucous membranes are moist. Eyes: Extraocular Movements: Extraocular movements intact. Conjunctiva/sclera: Conjunctivae normal. Pupils: Pupils are equal, round, and reactive to light. Cardiovascular: Pulses: Normal pulses. Heart sounds: Normal heart sounds. Pulmonary: Effort: Pulmonary effort is normal. Breath sounds: Normal breath sounds. Abdominal: General: Bowel sounds are normal. Musculoskeletal: General: Normal range of motion. Cervical back: Normal range of motion. Right lower leg: Edema present. Left lower leg: Edema present. Skin: General: Skin is warm and dry. Capillary Refill: Capillary refill takes less than 2 seconds. Neurological: Mental Status: He is alert and oriented to person, place, and time. Psychiatric: Mood and Affect: Mood normal. Behavior: Behavior normal. Medications: Scheduled PRN apixaban, 5 mg, Oral, BID carvedilol, 25 mg, Oral, BID WC cholecalciferol, 4,000 Units, Oral, Daily furosemide, 80 mg, IntraVENous, BID metOLazone, 5 mg, Oral, Daily [Held by provider] sacubitril-valsartan, 1 tablet, Oral, BID sodium bicarbonate, 1,300 mg, Oral, BID PRN medications: acetaminophen OR acetaminophen, ondansetron ODT OR ondansetron, polyethylene glycol (PEG) 3350 Continuous Assessment Data: Acute, acute on chronic, unstable/uncontrolled chronic problems/diagnoses: HFrEF- TTE 05/2024 EF 20% Non ischemic cardiomyopathy SCHUYLER with history of CKD Shortness of breath Persistent leg edema Stable chronic problems affecting care, new non-acute diagnoses: History of CAD Left heart catheterization 06/17/24, no interventions needed LBBB NSTEMI Hyperlipidemia DVT Noncompliance behavior Plan As a result of the above findings & factors, the following mgmt was pursued: - Hx of noncompliance, frequent admissions for SOB and edema - Cardiology consulted, appreciate recommendations; diuresis with 80 mg IV Lasix BID, Coreg 25 mg BID, held Entresto due to renal insufficiency, started Metolazone yesterday but patient is refusing to take - Nephrology consulted, limited medical therapy 2/2 CKD, appreciate recommendations - Continue to monitor daily weight diuresis monitoring - Monitor renal function with daily labs - Continue to attempt daily labs - Supplemental O2 as needed - Low Na cardiac diet - Nursing to apply lucrecia wrap to bilateral lower extremities daily, and remove at night - am labs, replace lytes prn - PT/OT/CM/SW - delirium precautions: increase activity and limit nighttime disturbances - DVT prophylaxis: SCDs, encourage ambulation, and already anticoagulated Complexity: Chronic illness with mild to moderate exacerbation, progression, or side effect of tx (MOD). Risk: Prescription drug/IVF/colloid was initiated, discontinued, adjusted; or reviewed with decision to maintain current orders (MOD). Advance Directive: Full Code Anticipated Discharge - Date - TBD - Location - Home - Pending the following - symptom improvement Extended Emergency Contact Information Primary Emergency Contact: Kaitlin Hicks Mobile Relation: Significant Other Secondary Emergency Contact: Indira Medina Mobile Relation: Sister Nicole Cross Division of Hospitalist Medicine Acute care [facility] Cosigned by THOMAS Carlos CNP at 07/28/2024 2:35 PM EST [place] [id number] Note* Medical Student - Nicole Cross - 07/26/2024 1:22 PM EST Hospitalist Progress Note 07/26/2024 Subjective: Admit Date: 07/23/2024 PCP: No primary care provider on file. Room#: B2-268/[id number] A BRIEF HOSPITAL COURSE: Carlo is a 44 y.o. male with past medical history of heart failure with reduced ejection fraction, chronic kidney disease, left bundle branch block, hypertension, noncompliance behavior, history ofnon-ST elevation ND who presented to the emergency department with complaint of swelling in the legs and shortness of breath along with abnormal labs. Patient symptoms have been going on for last couple days and has been progressively getting worse. Patient had lab work done as an outpatient per cardiology recommendation. Patient was advised by them to double up on his diuretics as the swelling was persistent in his lower legs. Patient had gained 10 pounds since last admission about 1 week ago.Patient received a call from the cardiology office stating his renal function is getting worse. Patient continued to have worsening swelling and shortness of breath and was advised to come to the emergency department for further evaluation 07/25/24 Per cardiology continue 80mg IV Lasix BID and Metolazone 5 mg daily, strict I&Os, has life vest at home, not wearing it, refusing lab draws, meds, non compliance, palliative consulted, 5 admits in 2023 Interval History: 07/26/24: No overnight issues. Patient refusing daily labs. Discussed with patient importance of daily labs to monitor renal function. Patient resting in bed, NAD. Patient reports urinary frequency but discussed with patient this is due to diuresis with BID Lasix. Patient reports this is annoying but educated that it is necessary to maintain his cardiac function. Nephrology consulted today by cardiology as SCHUYLER on CKD is limiting cardiac treatment options. Case and plan discussed with patient and bedside nurse. All questions answered. Adult diet Regular; Low Sodium (2 gm) 24HR INTAKE/OUTPUT: Intake/Output Summary (Last 24 hours) at 07/26/2024 1322 Last data filed at 07/26/2024 1310 Gross per 24 hour Intake 200 ml Output 6300 ml Net -6100 ml Past Medical History: Past Medical History: Diagnosis Date Acute HFrEF (heart failure with reduced ejection fraction) ([facility]) 06/13/2024 Acute kidney injury superimposed on CKD ([facility]) ([facility]) 07/03/2024 At risk for obstructive sleep apnea 05/31/2024 o/p sleep study recommended during admission CHF (congestive heart failure) ([facility]) CKD (chronic kidney disease) HFrEF (heart failure with reduced ejection fraction) ([facility]) 04/28/2024 History of left bundle branch block (LBBB) 06/19/2024 Hypercholesteremia Hypertension Noncompliance 06/19/2024 NSTEMI (non-ST elevated myocardial infarction) ([facility]) 07/11/2024 Pulmonary vascular congestion 04/28/2024 Sinus tachycardia 06/19/2024 LABS: CBC: Recent Labs 07/23/24 2127 07/24/24 0600 07/26/24 0907 WBC 8.8 7.4 5.5 RBC 4.55 4.34* 4.24* HGB 15.2 14.4 14.1 HCT 46.5 45.0 43.0 MCV 102.2* 103.7* 101.4* RDW 13.8 13.9 13.4 PLT 255 225 240 BMP: Recent Labs 07/24/24 0243 07/24/24 0600 07/26/24 0907 NA 138 138 138 K 4.4 4.3 3.4* CL 107 108* 103 CO2 19* 20* 23 BUN 37* 38* 40* CREATININE 1.98* 2.19* 2.14* GLUCOSE 107* 108* 114* CALCIUM 8.3* 8.5 8.5 ANIONGAP 12 10 12 LIVER PROFILE: Recent Labs 07/26/24 0907 AST 27 ALT 57* BILITOT 1.4* ALKPHOS 166* PROT 5.9* PT/INR: No results for input(s): PROTIME, INR in the last 72 hours. CARDIAC ENZYMES: No results for input(s): TROPONINI in the last 72 hours. Procalcitonin: No results found for: PROCAL COVID-19 PCR: No results for input(s): COVID19 in the last 72 hours. Objective: Vitals: BP 96/80 Pulse 107 Temp 36.4 C (97.6 F) (Temporal) Resp 20 Wt 182 lb (82.6 kg) SpO2 100% BMI 24.01 kg/m Pulse Ox: SpO2 Av.3 % Min: 93 % Max: 100 % Supplemental O2: Physical Exam Vitals and nursing note reviewed. Constitutional: Appearance: Normal appearance. HENT: Head: Normocephalic and atraumatic. Nose: Nose normal. Mouth/Throat: Mouth: Mucous membranes are moist. Eyes: Extraocular Movements: Extraocular movements intact. Conjunctiva/sclera: Conjunctivae normal. Pupils: Pupils are equal, round, and reactive to light. Cardiovascular: Pulses: Normal pulses. Heart sounds: Normal heart sounds. Pulmonary: Effort: Pulmonary effort is normal. Breath sounds: Normal breath sounds. Abdominal: General: Bowel sounds are normal. Musculoskeletal: General: Normal range of motion. Cervical back: Normal range of motion. Right lower leg: Edema present. Left lower leg: Edema present. Skin: General: Skin is warm and dry. Capillary Refill: Capillary refill takes less than 2 seconds. Neurological: Mental Status: He is alert and oriented to person, place, and time. Psychiatric: Mood and Affect: Mood normal. Behavior: Behavior normal. Medications: Scheduled PRN apixaban, 5 mg, Oral, BID carvedilol, 25 mg, Oral, BID WC cholecalciferol, 4,000 Units, Oral, Daily furosemide, 80 mg, IntraVENous, BID metOLazone, 5 mg, Oral, Daily [Held by provider] sacubitril-valsartan, 1 tablet, Oral, BID sodium bicarbonate, 1,300 mg, Oral, BID PRN medications: acetaminophen OR acetaminophen, ondansetron ODT OR ondansetron, polyethylene glycol (PEG) 3350 Continuous Assessment Data: Acute, acute on chronic, unstable/uncontrolled chronic problems/diagnoses: HFrEF- TTE 05/2024 EF 20% Non ischemic cardiomyopathy SCHUYLER with history of CKD Shortness of breath Persistent leg edema Stable chronic problems affecting care, new non-acute diagnoses: History of CAD Left heart catheterization 06/17/24, no interventions needed LBBB NSTEMI Hyperlipidemia DVT Noncompliance behavior Plan As a result of the above findings & factors, the following mgmt was pursued: - Hx of noncompliance, frequent admissions for SOB and edema - Cardiology consulted, appreciate recommendations; diuresis with 80 mg IV Lasix BID, Coreg 25 mg BID, held Entresto due to renal insufficiency, started Metolazone yesterday but patient is refusing to take - Nephrology consulted, limited medical therapy 2/2 CKD, appreciate recommendations - Continue to monitor daily weight diuresis monitoring - Monitor renal function with daily labs - Continue to attempt daily labs - Supplemental O2 as needed - Low Na cardiac diet - Nursing to apply lucrecia wrap to bilateral lower extremities daily, and remove at night - am labs, replace lytes prn - PT/OT/CM/SW - delirium precautions: increase activity and limit nighttime disturbances - DVT prophylaxis: SCDs, encourage ambulation, and already anticoagulated Complexity: Chronic illness with mild to moderate exacerbation, progression, or side effect of tx (MOD). Risk: Prescription drug/IVF/colloid was initiated, discontinued, adjusted; or reviewed with decision to maintain current orders (MOD). Advance Directive: Full Code Anticipated Discharge - Date - TBD - Location - Home - Pending the following - symptom improvement Extended Emergency Contact Information Primary Emergency Contact: KurtKaitlin Mobile Relation: Significant Other Secondary Emergency Contact: Indira Medina Mobile Relation: Sister Nicole Cross Division of Hospitalist Medicine [facility] Cosigned by THOMAS Carlos CNP at 07/28/2024 2:35 PM EST [facility] HospitalPublic Media [id number] NoteReferral received from CHF coordinator to please follow patient for transitional program to reinforce CHF education and need for follow up. Will monitor patient for discharge home and make outreaches to patient at that time.[employer] [id number] Note* Nurse Navigation Note - Dia Gaitan RN - 07/26/2024 10:20 AM EST HF booster pump oiler: Chart reviewed. Pt admitted with acute chronic HFrEF. Cardiology and Nephrology following, diuresing and adjusting GDMT as able. GDMT limited by renal function, hyperkalemia and pt intermittently refusing care (labs, meds, etc.) Pt well known to HFN from frequent HF hospitalizations 2/2 poor health literacy/continued noncompliance with HF GDMT and treatment plan. HF action plan added to AVS. Recommendations (see below for screenings): - S.C. request sent to the Hardening Machine Operator Management team to complete serial telephone outreaches to pt with a focus on reinforcing all HF education and importance of HF GDMT and follow up compliance. - Pt with history of refusing transfer from [facility] to [facility] while hospitalized. Recommend confirming pt is agreeable to follow up with [facility]. If unable or pt does not wish to come to [facility], recommend continued follow up at [facility]. Heart Failure Accreditation Quality Metrics All Clinical Practice Guidelines and references available on the [employer] Heart Failure resource page (Resources --> [facility] --> Heart Failure) Established Bending Shed Worker: Dr. Zhang/Yulissa Ulloa NP Follow up scheduled within 14 days: Yes- referral previously placed to the [facility]- scheduled to see Dr. Astudillo on 07/28 at 9:30AM. LVEF evaluation within the past 12 months: Yes NYHA class documentation by provider: Yes HF order set used: Yes Daily weight ordered:Yes Intake and output ordered: Yes HF education added: Yes HF care plan added: Yes Class 1 HFrEF GDMT- limited d/t SCHUYLER on CKD3 and hyperkalemia (Treatment pathway available on [facility] Heart Failure resource page) LUCRECIA/ARB/ARNI: No (HD Entresto BID on hold) BB: Yes, carvedilol 25mg BID MRA: No SGLT2-I: No Diuretic: Yes- 80mg IV lasix BID (40gm PO lasix daily GRAVE DIGGER) Hydral/ISDN: N/A HRIS ANALYST-D Appropriateness Screen- N/A- Noncompliant with Lifevest and GDMT Cardiac Rehab - Referral could be considered for HFrEF Heart Failure Triggers for Consult to Palliative Care- appropriately following [id number] Note* Nurse Navigation Note - Dia Gaitan RN - 07/26/2024 10:20 AM EST HF booster pump oiler: Chart reviewed. Pt admitted with acute chronic HFrEF. Cardiology and Nephrology following, diuresing and adjusting GDMT as able. GDMT limited by renal function, hyperkalemia and pt intermittently refusing care (labs, meds, etc.) Pt well known to HFN from frequent HF hospitalizations 2/2 poor health literacy/continued noncompliance with HF GDMT and treatment plan. HF action plan added to AVS. Recommendations (see below for screenings): - S.C. request sent to the Hardening Machine Operator Management team to complete serial telephone outreaches to pt with a focus on reinforcing all HF education and importance of HF GDMT and follow up compliance. - Pt with history of refusing transfer from [facility] to [facility] while hospitalized. Recommend confirming pt is agreeable to follow up with [facility]. If unable or pt does not wish to come to [facility], recommend continued follow up at [facility]. Heart Failure Accreditation Quality Metrics All Clinical Practice Guidelines and references available on the [employer] Heart Failure resource page (Resources --> [facility] --> Heart Failure) Established Bending Shed Worker: Dr. Zhang/Yulissa Ulloa NP Follow up scheduled within 14 days: Yes- referral previously placed to the [facility]- scheduled to see Dr. Astudillo on 07/28 at 9:30AM. LVEF evaluation within the past 12 months: Yes NYHA class documentation by provider: Yes HF order set used: Yes Daily weight ordered:Yes Intake and output ordered: Yes HF education added: Yes HF care plan added: Yes Class 1 HFrEF GDMT- limited d/t SCHUYLER on CKD3 and hyperkalemia (Treatment pathway available on [facility] Heart Failure resource page) LUCRECIA/ARB/ARNI: No (HD Entresto BID on hold) BB: Yes, carvedilol 25mg BID MRA: No SGLT2-I: No Diuretic: Yes- 80mg IV lasix BID (40gm PO lasix daily GRAVE DIGGER) Hydral/ISDN: N/A HRIS ANALYST-D Appropriateness Screen- N/A- Noncompliant with Lifevest and GDMT Cardiac Rehab - Referral could be considered for HFrEF Heart Failure Triggers for Consult to Palliative Care- appropriately following [facility] [id number] Hospital Discharge instructions* Discharge Instructions* Dia Gaitan RN - 07/26/2024 9:55 AM EST My Heart Failure Action Plan Use the below chart as a guide for daily symptom monitoring after you obtain your morning weight. My Bending Shed Worker: You will be new to [facility] on [facility] Dr. Sergei Astudillo [address] [place], [place] [id number] Once established with the heart failure clinic, you will have 24/ provider access by calling the office, same day/urgent appointments for new or worsening symptoms and the ability to receive IV lasix in the office if needed. My Diagnosis: Biventricular heart failure (Both the right and left sides of your heart are very weak) Compliance with heart failure and blood pressure medications is needed! Without consistently takingmedications, risk of from heart failure significantly increases. My Ejection Fraction: ~20% NORMAL 50-65% My Exercise Goal: as tolerated My Weight Goal: Standing weight day of hospital discharge Weigh yourself daily using the same scale. If you gain more than 3 pounds in 24 hours or 5 pounds in a week Call your Bending Shed Worker!! My Diet Goal: General diet recommendations for heart failure patients are less than 2,000mg sodium and less than 2 liters of fluid per day. This will help with symptoms of fluid retention, such as swelling and shortness of breath. See provider orders for additional/alternative recommendations. Emergency Room Visits: Our goal is to improve your quality of life and help you avoid a visit to the emergency room or hospital. If we work together, we can achieve this goal. But, if you feel you need to call 911 or go tothe emergency room, please do so. If you go to the emergency room, please bring your list of medicines and your daily weight chart with you. GREEN ZONE Doing well today Weight gained is no more than 3 pounds a day or 5 pounds a week. No swelling in feet, ankles, legs or stomach. No more swelling than usual. No more trouble breathing than usual. No change in my sleep. No other problems. Actions: I am doing fine. I will take my medicine, follow my diet, see my doctor, exercise, and watch for symptoms YELLOW ZONE Having a bad day or flare up Weight gained of more than 3 pounds in one day or 5 pounds in one week. New swelling in ankle, leg, knee, or thigh. Bloating in belly, pants feel tighter. Swelling in hands or face. Coughing or trouble breathing while walking or talking. Harder to breathe last night. Have trouble sleeping, wake up short of breath. Much more tired than usual. Not eating. Pain in my chest or bad leg cramps. Feel weak or dizzy. Signs and symptoms of Dehydration: dark and/or less urine, dry cracked mouth/skin, lethargic, lightheaded, dizzy, low blood pressure readings with high heart rate Actions: I need to take action and call my doctor or nurse today. RED ZONE NEED MEDICAL CARE NOW Weight gain of 5 pounds overnight. Chest pain or pressure that does not go away. Feel less alert. Wheezing or have trouble breathing when at rest. Cannot sleep lying down. Cannot take my water pill. Pass out or faint. ACTIONS I need to call my doctor or nurse now! Call 911 if I have chest pain or cannot breathe. For any questions related to your heart failure treatment plan or diagnosis, please call Dia Gaitan Heart Failure Navigator at [phone] (Mon-Fri 8AM-4PM) Do not call Dia's number with new or worsening symptoms- please be sure to use the office number provided above! * Discharge Instr - Activity* Tamiko Live RN - 07/30/2024 11:47 AM EST As tolerated * Discharge Instr - Diet* Tamiko Live RN - 07/30/2024 11:47 AM EST Healthy heart diet * Appointments* Tamiko Live RN - 07/30/2024 12:49 PM EST Please call customer service for you [employer] to help establish a Primary Care Physician. * Attachments The following attachments cannot be sent through Care Everywhere. * Controlling Your Blood Pressure Through Lifestyle (Moroccan) documented in this [facility]01-27-2025 NoteCardiology and attending made aware that patient refuses metolazone this AM. Education by this nurse ineffective.[facility]01-27-2025 Nurse Note * Raj Chilel RN - 07/26/2024 9:26 AM EST Cardiology and attending made aware that patient refuses metolazone this AM. Education by this nurse ineffective. [facility] [id number] Plan of care note* Care Plan - Raj Chilel RN - 07/26/2024 8:55 AM EST Problem: Pain - Adult Goal: Verbalizes/displays adequate comfort level or baseline comfort level Outcome: Progressing Problem: Safety - Adult Goal: Free from fall injury Outcome: Progressing Problem: Discharge Planning Goal: Discharge to home or other facility with appropriate resources Outcome: Progressing Problem: Chronic Conditions and Co-morbidities Goal: Patient's chronic conditions and co-morbidity symptoms are monitored and maintained or improved Outcome: Progressing Problem: Knowledge Deficit Goal: Patient/family/caregiver demonstrates understanding of disease process, treatment plan, medications, and discharge instructions Outcome: Progressing Problem: Hemodynamic Status Goal: Patient's vitals signs are stable Outcome: Progressing Problem: Excessive Fluid Volume Goal: Fluid and electrolyte balance are achieved/maintained Outcome: Progressing Problem: Inadequate Gas Exchange Goal: Patient is adequately oxygenated and ventilation is improved Outcome: Progressing Goal: Nutritional status is improving Outcome: Progressing Problem: Activity Intolerance/Impaired Mobility Goal: Mobility/activity is maintained at optimum level for patient Outcome: Progressing Problem: Nutrition Goal: Nutritional status is improving Outcome: Progressing [facility] [id number] Nurse Note* Tamiko Live RN - 07/26/2024 7:41 AM EST Patient refusing to let this nurse draw morning labs. Educated the patient on the importance of this process during his hospital stay to monitor his status. The only way he will allow blood draw is with US. Request made to TANK ERECTOR nurse. [facility] [id number] Nurse Note* Osiris Huber RN - 07/26/2024 5:19 AM EST Attempted to draw lab but patient refused at this time.informed the provider. [facility] [id number] Plan of care note* Care Plan - Osiris Huber RN - 07/26/2024 3:54 AM EST Problem: Pain - Adult Goal: Verbalizes/displays adequate comfort level or baseline comfort level Outcome: Progressing Problem: Safety - Adult Goal: Free from fall injury Outcome: Progressing Problem: Chronic Conditions and Co-morbidities Goal: Patient's chronic conditions and co-morbidity symptoms are monitored and maintained or improved Outcome: Progressing [facility] [id number] Consult note* Chuyita Holloway MD - 07/25/2024 11:27 AM ESTAssociated Order(s): IP CONSULT TO PALLIATIVE CARE Images from the original note were not included. Palliative Care Initial Consult Chief Complaint: Carlo is a 44 y.o. male with chief complaint of SOB Palliative care consulted for goals of care Palliative Care is actively following. Assessment/Plan Goals of care Carlo Medina retains capacity for medical decision-making -legal surrogate decision maker is daughterZena - met with patient this afternoon, introduced self and role - patient stated he lives with his girlfriend Loco, stated had adult daughter of 20 yrs Journey - discussed HCPOA, patient stated he wants his girlfriend to make decisions for him and not his daughter - encouraged patient to fill HCPOA document, consulted social staff worker for assistance - discussed goals, discussed patient's EF of 20 %, his medical compliance - discussed CPR, Intubation, Vent - patient stated that he feels fine, he wants everything done for him including CPR, intubation, Vent - Code status remains Full Code - will request palliative mold maker apprentice for support - discussed with Bending Shed Worker Dr. Lassiter - will continue to have ongoing goals of care conversations with patient, family Acute on chronic HFrEF (20% 05/2024) due to non-ischemic CMP - patient with repeated hospitalizations for HF exacerbation, mostly due to his non compliance - had 5 admissions 2023 - patient remains on IV lasix 80 mg twice daily - pt has a life vest at home - discussed with cardiology team Nonsustained VT/ Intermittent LBBB - life vest was ordered for home - remains on high dose coreg B/L LE DVT - on elliquis SCHUYLER on CKD - per cardiology notes one reason for his renal dysfunction is likely due to poor cardiac output - creatinine 2.19 today Palliative Care Encounter -Code Status: Full Code - will continue to follow for ongoing monitoring of progression of Dyspnea and Constipation as wellas for appropriateness for hospice care due to CHF - will continue to evaluate test results related to CHF, medication effectiveness for Dyspnea and Constipation, response to treatment of CHF - obtaining testing as needed to monitor medication results:N/A PC Time Stamp: Total of 85 minutes spent on this encounter including Chart review, Patient visit and exam, Documentation in EHR, Care coordination, and Communicating with primary attending or other consultants. Discharge planning: Not ready for discharge due to ongoing goals of care discussion Patient meets criteria for general inpatient hospice care: No Palliative Care IDT members involved: Pastoral Care Discussed the plan of care with the other interdisciplinary team (IDT) members of the Palliative Care and Hospice teams and Patient and Consultants. Subjective: Subjective/Events Carlo Medina is a 44 y.o. male with PMHx of HFrEF, CKD, HTN, HLP, Nonsustained VT/ Intermittent LBBB with life vest, Chronic medical non compliance who was admitted to [facility] on 07/23/24 with complain of SOB and leg swelling. Palliative care consulted by cardiology for goals of care. Pain Assessment No pain Palliative Care Assessments: Goals of care: Continue Current Management Advanced Directives: No Known Advance Directive Functional Assessment: PPS 70% amb reduced; can't do normal work/some disease; full self care; normal or reduced intake; full LOC Prognosis: depends upon goals of care Spiritual Assessment: No spiritual distress identified Bereavement and Grief: To Be Determined PDMP/OARRS Reviewed: No Report Available Social history: Marital status: single Children: 1 adult child(adry) Living status: with partner / significant other Work history: not working now, worked at [employer] before [place] status: No Holiness alfredo: Christianity ROS: See palliative care ROS/ESAS below; All other systems were reviewed and are negative. [place] Symptom Assessment Score [place] Score Pain Score (if non-verbal, add .FLACC below) 0 Tiredness Score 4 Nausea Score 0 Depression Score 0 Anxiety Score 0 Drowsiness Score 0 Anorexia Score (0= eating well, 10= not eating) 0 Wellbeing Score (10= worst sense of well-being) 4 Constipation 0 Dyspnea Score (0= no shortness of breath) 0 Family Meeting: Participants: patient Family meeting was held to discuss:Diagnosis and Prognosis, Goals of Care, Treatment Options, Symptom Management, Advanced Care Planning, Prior Expressed Wishes, and Discharge Plan Past Medical History: Diagnosis Date Acute HFrEF (heart failure with reduced ejection fraction) ([facility]) 06/13/2024 Acute kidney injury superimposed on CKD ([facility]) ([facility]) 07/03/2024 At risk for obstructive sleep apnea 05/31/2024 o/p sleep study recommended during admission CHF (congestive heart failure) ([facility]) CKD (chronic kidney disease) HFrEF (heart failure with reduced ejection fraction) ([facility]) 04/28/2024 History of left bundle branch block (LBBB) 06/19/2024 Hypercholesteremia Hypertension Noncompliance 06/19/2024 NSTEMI (non-ST elevated myocardial infarction) ([facility]) 07/11/2024 Pulmonary vascular congestion 04/28/2024 Sinus tachycardia 06/19/2024 Past Surgical History: Procedure Laterality Date CARDIAC CATHETERIZATION N/A 06/17/2024 Performed by Akilah Diaz MD at [facility] 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 Family History Problem Relation Name Age of Onset Heart disease Father Heart disease Brother Unable to obtain family history due to N/A- family history available No Known Allergies Objective: BP 117/88 Pulse 100 Temp 36.1 C (97 F) (Temporal) Resp 16 Wt 185 lb (83.9 kg) SpO2 100% BMI 24.41 kg/m Physical Exam Constitutional: Appearance: He is ill-appearing. HENT: Head: Normocephalic. Right Ear: External ear normal. Nose: Nose normal. Mouth/Throat: Mouth: Mucous membranes are moist. Eyes: General: No scleral icterus. Right eye: No discharge. Left eye: No discharge. Conjunctiva/sclera: Conjunctivae normal. Pupils: Pupils are equal, round, and reactive to light. Cardiovascular: Rate and Rhythm: Tachycardia present. Pulses: Normal pulses. Heart sounds: Normal heart sounds. No murmur heard. Pulmonary: Effort: Pulmonary effort is normal. No respiratory distress. Breath sounds: No stridor. No wheezing. Abdominal: General: Bowel sounds are normal. There is no distension. Palpations: Abdomen is soft. Musculoskeletal: General: Swelling present. Left lower leg: Edema present. Skin: General: Skin is warm. Coloration: Skin is not jaundiced. Neurological: Mental Status: He is oriented to person, place, and time. Cranial Nerves: No cranial nerve deficit. Motor: Weakness present. Psychiatric: Mood and Affect: Mood normal. Medication information: 24-hour PRN meds received: Zofran 4 mg IV x 1 Results/Verification of Data Review Objective data reviewed (must include dates reviewed for labs, imaging reports and other specialty notes): - labs, imaging, OARRS reviewed 07/25/24 Data in Support of Terminal Illness: Is patient hospice appropriate? TBD Transition Note Initiated: yes Chuyita Holloway MD [id number] Nurse Note* Osiris Huber RN - 07/25/2024 5:00 AM EST Attempted to draw lab but patient is refusing to draw lab.Informed the doctor. [id number] Plan of care note* Care Plan - Slime Lange RN - 07/24/2024 5:26 PM EST Problem: Pain - Adult Goal: Verbalizes/displays adequate comfort level or baseline comfort level 07/24/2024 172 by Slime Lange RN Outcome: Progressing 07/24/2024 1458 by Slime Lange RN Outcome: Progressing Problem: Safety - Adult Goal: Free from fall injury 07/24/2024 172 by Slime Lange RN Outcome: Progressing 07/24/2024 1458 by Slime Lange RN Outcome: Progressing Problem: Discharge Planning Goal: Discharge to home or other facility with appropriate resources 07/24/2024 172 by Slime Lange RN Outcome: Progressing 07/24/2024 1458 by Slime Lange RN Outcome: Progressing Problem: Chronic Conditions and Co-morbidities Goal: Patient's chronic conditions and co-morbidity symptoms are monitored and maintained or improved 07/24/2024 172 by Slime Lange RN Outcome: Progressing 07/24/2024 1458 by Slime Lange RN Outcome: Progressing Problem: Knowledge Deficit Goal: Patient/family/caregiver demonstrates understanding of disease process, treatment plan, medications, and discharge instructions 07/24/2024 172 by Slime Lange RN Outcome: Progressing 07/24/2024 1458 by Slime Lange RN Outcome: Progressing Problem: Hemodynamic Status Goal: Patient's vitals signs are stable 07/24/2024 1726 by Slime Lange RN Outcome: Progressing 07/24/2024 1458 by Slime Lange RN Outcome: Progressing Problem: Excessive Fluid Volume Goal: Fluid and electrolyte balance are achieved/maintained 07/24/2024 172 by Slime Lange RN Outcome: Progressing 07/24/2024 1458 by Slime Lange RN Outcome: Progressing Problem: Inadequate Gas Exchange Goal: Patient is adequately oxygenated and ventilation is improved 07/24/2024 1726 by Slime Lange RN Outcome: Progressing 07/24/2024 1458 by Slime Lange RN Outcome: Progressing Goal: Nutritional status is improving 07/24/2024 1726 by Slime Lange RN Outcome: Progressing 07/24/2024 1458 by Slime Lange RN Outcome: Progressing Problem: Activity Intolerance/Impaired Mobility Goal: Mobility/activity is maintained at optimum level for patient 07/24/2024 1726 by Slime Lange RN Outcome: Progressing 07/24/2024 1458 by Slime Lange RN Outcome: Progressing Problem: Nutrition Goal: Nutritional status is improving 07/24/2024 1726 by Slime Lange RN Outcome: Progressing 07/24/2024 1458 by Slime Lange RN Outcome: Progressing [id number] Plan of care note* Care Plan - Slime Lange RN - 07/24/2024 2:58 PM EST Problem: Pain - Adult Goal: Verbalizes/displays adequate comfort level or baseline comfort level Outcome: Progressing Problem: Safety - Adult Goal: Free from fall injury Outcome: Progressing Problem: Discharge Planning Goal: Discharge to home or other facility with appropriate resources Outcome: Progressing Problem: Chronic Conditions and Co-morbidities Goal: Patient's chronic conditions and co-morbidity symptoms are monitored and maintained or improved Outcome: Progressing Problem: Knowledge Deficit Goal: Patient/family/caregiver demonstrates understanding of disease process, treatment plan, medications, and discharge instructions Outcome: Progressing Problem: Hemodynamic Status Goal: Patient's vitals signs are stable Outcome: Progressing Problem: Excessive Fluid Volume Goal: Fluid and electrolyte balance are achieved/maintained Outcome: Progressing Problem: Inadequate Gas Exchange Goal: Patient is adequately oxygenated and ventilation is improved Outcome: Progressing Goal: Nutritional status is improving Outcome: Progressing Problem: Activity Intolerance/Impaired Mobility Goal: Mobility/activity is maintained at optimum level for patient Outcome: Progressing Problem: Nutrition Goal: Nutritional status is improving Outcome: Progressing [id number] Consult note* Angel Luis Lassiter MD - 07/24/2024 11:54 AM ESTAssociated Order(s): IP CONSULT TO CARDIOLOGY [facility] [place] [facility] Cardiology Consult Note Reason for Consult/Chief Complaint: HF Established radar engineer: Le[facility] HF specialist History of Present Illness: Carlo Medina is a 44 y.o. male nonischemic cardiomyopathy with severe biventricular failure, lastEF measured 20% per transthoracic echo June 15, 2024. Hx of [facility] adm due to poor compliance and poor health literacy. He has had extended and multiple discussions about medical Rx. Recently noted to have increased wt as outpt at [facility] and K+5.8 was subsequently found. Prior to that: Was Dc'd 07/[address] [facility]. That note says they tried to keep pt in hospital for further mgt but he insisted on going home as he felt well. Interestingly, he is angry about that visit because he says theydid not help him and sent him home volume overloaded. Lasix was 20 mg daily. The discrepancy between those stories is very concerning and I wonder if it will ever be possible that he will understand or believe what is happening to him. It is not clear to me whether he is in denial, lying, malingering. Not surprisingly, he was readm for HF shortly thereafter 07/11 to [facility]. Was Dc'd 07/16 from [facility] w/lasix 20 PRN daily for wt gain Seen outpt; increased volume, rec to incr lasix to 40 bid then go to 40 daily; Got BMP which showedK 5.8. Apparently on that visit he was also not taking Entresto or aldactone. Adm SOB, elev K+. Wt gain 10 lbs from a month ago. LE swelling. Pt angry that he is back in hospital. Does not want to go back [facility] hospital Seems willing to do [facility] HF clinic when I told him it was outpt. Assessment/Plan HF NYHA Class [] I [] II [x] III [] IV []Unable to assess Acute on chronic HFrEF (20% 05/2024) due to non-ischemic CMP: Heart cath 06/17/2024 ruled out coronary disease, cardiomyopathy is not ischemic in origin Suspect possible origins include history of poorly controlled hypertension for years and/or genetic(father- sudden cardiac , brother - HF, alive). P/w SOB, LE edema, increased wt and increase ProBNP level 2nd highest since testing began (26K). Diuretics: Lasix 80 iv bid; consider metolazone additional if needed; target 1-2 L neg/day HF Beta jerome: coreg 25 bid LUCRECIA/ARB/ARNI: Restart Entresto 49/51; close f/u of renal fxn/K+ level MRA: None 2nd CKD and recent hyperkalemia; this could be used with Lokelma but doubt he would agreeto take. Vasodilator: None SGLT2i: None 2nd to keep med regimen simplier Corlanor: Appropriate outpt candidate for this med; Doubt would use 2nd to keep med regimen simplier Digoxin: None 2nd to keep med regimen simplier Anticoagulation: OAC for DVT (mgt per primary) ICD/HRIS ANALYST: Candidate for HRIS ANALYST-D if LBBB became chronic but would need to agree to [facility] evaluation as outpt Last CPET: none Last RHC: C/w low outpt HF. Volume compensated. LVAD/OHT eligibility: No; noncompliant with recommendations Screening for MONTSE: unknown CKD. GFR36. One reason for his renal dysfunction is likely due to poor cardiac output -Daily BMP -Given hyperkalemia may not be able to tolerate full GDMT HTN. Stable. Target <130/80 mmHg; lower if able to tolerate to allow function of HF meds. - Continue antihypertensives Recent DVT. -Cont Eliquis mgt per primary service Nonsustained VT/ Intermittent LBBB Seen previously, rec and arranged for LifeVest. Doubt compliant -Continue high-dose carvedilol Noncompliance/ Medical literacy/ Social support/ Code He is strongly recommended for Adv HF mgt at [facility] HF clinic; this is supported by his [facility] radar engineer Dr. Zhang. Very high risk for readmission. Appropriate for cardiac rehab if he would attend Noncompliance likely due to multiple factors not all known at this time (medical literacy and social support are issues) contribute to this risk and his poor prognosis [facility]. There may be an opportunity for improved LVEF and outcome with maximal treatment and if compliant even other advanced therapies. But he is unlikely to have a better prognosis if he is unable/unwilling to accept care at a higher level. Code is Full; Palliative d/w him 05/2024 that if he does not take care of himself and comply he will and early . If not willing to comply with therapies then hospice would be appropriate. Hehas a hard time understanding that his HF is not just an issue that brings him back to the hospitalbut shortens his life and can kill him. Dispo. Agree with need for aggressive diuresis; unlike prior admissions pt says he wants all his leg swelling better before being discharged as opposed to being Dc'd just because he is feeling better which has been his prior demand. To the primary service - please arrange outpt PCP f/u MDM. High risk dx of severe HF. If cannot be managed here would favor txf to [facility] but pt would likely refuse as he did the last time. Medications: apixaban, 5 mg, Oral, BID carvedilol, 25 mg, Oral, BID WC cholecalciferol, 4,000 Units, Oral, Daily furosemide, 40 mg, IntraVENous, Daily sacubitril-valsartan, 1 tablet, Oral, BID sodium bicarbonate, 1,300 mg, Oral, BID Infusion Medications: Physical Examination: Vitals: 07/24/24 0900 07/24/24 1000 07/24/24 1100 07/24/24 1125 BP: 127/94 BP Location: Left arm Patient Position: Lying Pulse: 104 104 109 104 Resp: 18 Temp: (!) 35.9 C (96.6 F) TempSrc: Temporal SpO2: (!) 84% 100% No intake or output data in the 24 hours ending 07/24/24 1154 Wt Readings from Last 3 Encounters: 07/21/24 189 lb 3.2 oz (85.8 kg) 07/16/24 179 lb 10.8 oz (81.5 kg) 07/07/24 177 lb 6.4 oz (80.5 kg) Physical Exam Constitutional: No acute distress. Well nourished. Over-hydrated Psychiatric: A &O x 3. Medical insight poor NMT: Oral mucosa is pink and moist Neck: No JVD. +HJR Respiratory: Lungs are clear Cardiac exam: Rhythm: RRR tachy ; Normal S1 and S2 Murmur: None Other: No rub; no gallop Vasc: Peripheral pulses 2+ Abdomen: Soft, +BS Extremities: 2-3+ evans LE edema Skin: Warm to touch and well perfused Laboratory Tests: TROPONIN I, CONVENTIONAL SENSITIVITY TROPONIN I Date Value Ref Range Status 05/28/2024 0.037 (H) <0.034 ng/mL Final 05/28/2024 0.051 (H) <0.034 ng/mL Final 04/28/2024 0.032 <0.034 ng/mL Final 04/28/2024 0.025 <0.034 ng/mL Final 04/28/2024 0.020 <0.034 ng/mL Final TROPONIN I, HIGH SENSITIVITY Troponin HS, Serial Baseline Date Value Ref Range Status 07/23/2024 33 <=35 ng/L Final 07/11/2024 218 (HH) <=35 ng/L Final 07/03/2024 39 (H) <=35 ng/L Final 06/18/2024 44 (H) <=35 ng/L Final 06/13/2024 50 (H) <=35 ng/L Final Troponin HS, Serial Second Date Value Ref Range Status 07/23/2024 30 <=35 ng/L Final 07/11/2024 221 (HH) <=35 ng/L Final 07/03/2024 33 <=35 ng/L Final 06/13/2024 53 (H) <=35 ng/L Final Troponin HS Delta, Baseline to Second Date Value Ref Range Status 07/11/2024 3 <=2 ng/L Final Comment: A troponin delta greater than or equal to 15 ng/L is significant for acute cardiac injury. Values less than 15 but greater than 2 are an intermediate change requiring a 3rd serial troponin to be drawn. Values less than or equal to 2 indicate acute cardiac injury is not likely, see external algorithmsfor further clinical guidance. 07/03/2024 -6 <=2 ng/L Final Comment: This specimen was collected more than 20 minutes away from the 2 hour target. Use of this delta with the 2 hour troponin algorithm is not recommended, individualized clinical assessment is needed. A troponin delta greater than or equal to 15 ng/L is significant for acute cardiac injury. Values less than 15 but greater than 2 are an intermediate change requiring a 3rd serial troponin to be drawn. Values less than or equal to 2 indicate acute cardiac injury is not likely, see external algorithmsfor further clinical guidance. 06/13/2024 3 <=2 ng/L Final Comment: This specimen was collected more than 20 minutes away from the 2 hour target. Use of this delta with the 2 hour troponin algorithm is not recommended, individualized clinical assessment is needed. A troponin delta greater than or equal to 15 ng/L is significant for acute cardiac injury. Values less than 15 but greater than 2 are an intermediate change requiring a 3rd serial troponin to be drawn. Values less than or equal to 2 indicate acute cardiac injury is not likely, see external algorithmsfor further clinical guidance. Troponin HS, Serial Third Date Value Ref Range Status 07/12/2024 218 (HH) <=35 ng/L Final 06/13/2024 49 (H) <=35 ng/L Final Troponin HS Delta, Second to Third Date Value Ref Range Status 07/12/2024 -3 <=2 ng/L Final Comment: A troponin delta greater than or equal to 15 ng/L is suggestive of acute cardiac injury. Values less than 15, see clinical guidance for ED and Inpatient algorithms. 06/13/2024 -4 <=2 ng/L Final Comment: This specimen was collected more than 20 minutes away from the 2 hour target. Use of this delta with the 2 hour troponin algorithm is not recommended, individualized clinical assessment is needed. A troponin delta greater than or equal to 15 ng/L is suggestive of acute cardiac injury. Values less than 15, see clinical guidance for ED and Inpatient algorithms. Recent Labs 07/23/24212607/24/24 0243 07/24/24 0600 NA 140 138 138 K 4.6 4.4 4.3 CL 106 107 108* CO2 19* 19* 20* BUN 37* 37* 38* CREATININE 2.24* 1.98* 2.19* EGFR 35.7* 41.4* 36.7* Recent Labs 07/23/24212607/24/24 0600 WBC 8.8 7.4 HGB 15.2 14.4 HCT 46.5 45.0 MCV 102.2* 103.7* PLT 255 225 Lab Results Component Value Date HGBA1C 5.0 03/01/2024 Lab Results Component Value Date TSH 3.18 07/23/2024 Lab Results Component Value Date CHOL 130 06/14/2024 CHOL 172 02/29/2024 Lab Results Component Value Date HDL 16 (L) 06/14/2024 HDL 28 (L) 02/29/2024 Lab Results Component Value Date LDLCALC 100 (H) 06/14/2024 LDLCALC 126 (H) 02/29/2024 Lab Results Component Value Date TRIG 68 06/14/2024 TRIG 88 02/29/2024 No results found for: CHOLHDL No results found for: LDLCHOLESTER Recent Labs 07/23/24 2127 07/24/24 0600 BNP 26,294* 20,238* No results for input(s): INR in the last 72 hours. No results found for: IRON, TIBC, FERRITIN Radiology: CXR: personally reviewed: Cardiomegaly. No obvious pulm edema or effusions. Cardiac Tests Personally Reviewed: Last EKG 07/23/24 ECG 12-LEAD 07/23/2024 9:59 PM (Final) Impression Sinus tachycardia Anterior infarct, old Electronically Signed On 07-23-2024 21:59:14 EST by Bertha Pichardo Signed by: Bertha Pichardo on 07/23/2024 9:59 PM Telemetry findings: Sinus tach Reports reviewed: Last Echo 06/13/24 TRANSTHORACIC ECHOCARDIOGRAM (TTE) COMPLETE (CONTRAST/BUBBLE/3D PRN) 06/15/2024 1:59 PM (Final) Interpretation Summary Left Ventricle: Left ventricle is dilated. Mildly increased wall thickness. Severely reduced left ventricular systolic function. EF by 2D Simpsons Biplane is 20%. Global longitudinal strain is reduced with a value of -5.0%. Severe global hypokinesis present. Right Ventricle: Right ventricle is dilated. Moderately reduced systolic function. Aortic Valve: Mild (1+) regurgitation. Mitral Valve: Moderate (2+) regurgitation with an eccentrically directed jet and and may underestimate severity. Tricuspid Valve: Moderately elevated RVSP. RVSP is 46 mmHg. Pericardium: Small (<1 cm) pericardial effusion present. Findings do not support cardiac tamponade. IVC/Hepatic Veins: IVC diameter is dilated and decreases less than 50% during inspiration; therefore the estimated right atrial pressure is elevated (~15 mmHg). Slow blood flow, echogenic. Signed by: Ofelia Villalobos on 06/15/2024 1:59 PM Last Cath 06/13/24 CARDIAC PROCEDURE 06/17/2024 11:14 AM (Final) Conclusion No significant epicardial coronary artery disease Milldy elevated right heart pressures: RA 7 mmHg, mean PA pressure 27 mmHg Elevated PCWP ~ 23mmHg, and LVEDP ~ 25 mmHg Decreased cardiac output/index. By Rodney, output: 3/0 L/min index 1.5: By thermodilution, output: 3.1 L/min index: SVR ~ 2200 Signed by: Akilah Diaz on 06/17/2024 11:14 AM Last Stress Test No results found for this or any previous visit. Last EP study No results found for this or any previous visit. EF BP Date Value Ref Range Status 06/15/2024 20 (A) 55 - 100 % Final Angel Luis Lassiter MD DATE of SERVICE: 07/24/2024 [id number] History and physical note* Rafa Samuel MD - 07/23/2024 10:14 PM EST Attending History and Physical Admit Date: 07/23/2024 PCP: No primary care provider on file. CHIEF COMPLAINT: Swelling. Reason for Admission: CHF exacerbation. History Obtained From: patient/ER provider HISTORY OF PRESENT ILLNESS: Carlo is a 44 y.o. male with past medical history significant for heart failure with reduced ejection fraction, chronic kidney disease, left bundle branch block, hypertension, noncompliance behavior, history of non-ST elevation ND who presented to the emergency room with complaint of swelling in the legs and shortness of breath along with abnormal labs. Patient symptoms have been going on for last couple days and has been progressively getting worse. Patient got lab work done as an outpatientper cardiology recommendation. Patient was advised by them to double up on his diuretics as the swelling was persistent in the legs. Patient had gained 10 pounds since last admission about 1 week ago. Patient received a call from the cardiology office stating the renal function is getting worse. Patient continued to have worsening swelling and shortness of breath and was advised to come to the emergency room for further evaluation Past Medical History: Past Medical History: Diagnosis Date Acute HFrEF (heart failure with reduced ejection fraction) ([facility]) 06/13/2024 Acute kidney injury superimposed on CKD ([facility]) ([facility]) 07/03/2024 At risk for obstructive sleep apnea 05/31/2024 o/p sleep study recommended during admission CHF (congestive heart failure) ([facility]) CKD (chronic kidney disease) HFrEF (heart failure with reduced ejection fraction) ([facility]) 04/28/2024 History of left bundle branch block (LBBB) 06/19/2024 Hypercholesteremia Hypertension Noncompliance 06/19/2024 NSTEMI (non-ST elevated myocardial infarction) ([facility]) 07/11/2024 Pulmonary vascular congestion 04/28/2024 Sinus tachycardia 06/19/2024 Past Surgical History: Past Surgical History: Procedure Laterality Date CARDIAC CATHETERIZATION N/A 06/17/2024 Performed by Akilah Daiz MD at [facility] 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 Social History: Social History Socioeconomic History Marital status: Single Spouse name: Not on file Number of children: Not on file Years of education: Not on file Highest education level: Not on file Occupational History Not on file Tobacco Use Smoking status: Never Passive exposure: Never Smokeless tobacco: Never Vaping Use Vaping status: Never Used Substance and Sexual Activity Alcohol use: Never Drug use: Never Comment: caffeine: none Sexual activity: Yes Partners: Female Other Topics Concern Not on file Social History Narrative Not on file Social Drivers of Health Financial Resource Strain: Low Risk (07/12/2024) Overall Financial Resource Strain (CARDIA) Difficulty of Paying Living Expenses: Not very hard Food Insecurity: No Food Insecurity (07/12/2024) Hunger Vital Sign Worried About Running Out of Food in the Last Year: Never true Ran Out of Food in the Last Year: Never true Transportation Needs: No Transportation Needs (07/12/2024) PRAPARE - Transportation Lack of Transportation (Medical): No Lack of Transportation (Non-Medical): No Physical Activity: Inactive (07/12/2024) Exercise Vital Sign Days of Exercise per Week: 0 days Minutes of Exercise per Session: 0 min Stress: Stress Concern Present (07/12/2024) [place] of Occupational Health - Occupational Stress Questionnaire Feeling of Stress : To some extent Social Connections: Moderately Integrated (07/12/2024) Social Connection and Isolation Panel [NHANES] Frequency of Communication with Friends and Family: Twice a week Frequency of Social Gatherings with Friends and Family: Once a week Attends Holiness Services: 1 to 4 times per year Active Member of Clubs or Organizations: No Attends Club or Organization Meetings: Never Marital Status: Living with partner Intimate Partner Violence: Not At Risk (07/12/2024) Humiliation, Afraid, Rape, and Kick questionnaire Fear of Current or Ex-Partner: No Emotionally Abused: No Physically Abused: No Sexually Abused: No Housing Stability: Low Risk (07/12/2024) Housing Stability Vital Sign Unable to Pay for Housing in the Last Year: No Number of Times Moved in the Last Year: 0 Homeless in the Last Year: No Family History: Family History Problem Relation Name Age of Onset Heart disease Father Heart disease Brother Medications Prior to Admission: No current facility-administered medications on file prior to encounter. Current Outpatient Medications on File Prior to Encounter Medication Sig Dispense Refill apixaban (Eliquis) 5 MG tablet Take 1 tablet (5 mg) by mouth 2 times daily. 60 tablet 3 carvedilol (Coreg) 25 MG tablet Take 1 tablet (25 mg) by mouth 2 times daily (with meals). 60 tablet 11 cholecalciferol (Vitamin D-3) 50 MCG (2000 UT) tablet Take 2 tablets (4,000 Units) by mouth daily. 180 tablet 0 furosemide (Lasix) 40 MG tablet Take 1 tablet (40 mg) by mouth daily. sacubitril-valsartan (Entresto) 97-103 MG tablet Take 1 tablet by mouth 2 times daily. 60 tablet 12 sodium bicarbonate 650 MG tablet Take 2 tablets (1,300 mg) by mouth 2 times daily. 360 tablet 0 spironolactone (Aldactone) 25 MG tablet Take 0.5 tablets (12.5 mg) by mouth daily. 15 tablet 11 [DISCONTINUED] furosemide (Lasix) 20 MG tablet Take 1 tablet (20 mg) by mouth as needed (take for weight gain of 4 pounds). Take for weight gain of 4 pounds or more 30 tablet 11 Allergies: No Known Allergies REVIEW OF SYSTEMS: Constitutional: Negative for fever, chills, activity change and unexpected weight change. Positive for weakness HEENT: Negative for congestion, postnasal drip and sneezing. Eyes: Negative for itching and visual disturbance. Respiratory: Negative for apnea, cough, choking, chest tightness, positive for shortness of breath Cardiovascular: Negative for chest pain. Gastrointestinal: Negative for nausea, vomiting, abdominal pain, diarrhea and blood in stool. Genitourinary: Negative for dysuria, frequency and flank pain. Musculoskeletal: Negative for myalgias and joint swelling. Skin: Negative for rash. Neurological: Negative for dizziness, tremors, seizures, syncope, facial asymmetry, speech difficulty, weakness, numbness and headaches. Hematological: Negative for adenopathy. Psychiatric/Behavioral: Negative for suicidal ideas, behavioral problems, self- injury and dysphoricmood. Vitals: BP 108/84 Pulse 107 Temp 36.2 C (97.2 F) (Temporal) Resp 18 SpO2 99% BMI Classification: Pulse Ox: SpO2 Av.5 % Min: 99 % Max: 100 % Supplemental O2: PHYSICAL EXAM: Constitutional: General: Patient is not in acute distress. Appearance: Normal appearance. HENT: Head: Normocephalic and atraumatic. Right Ear: External ear normal. Left Ear: External ear normal. Mouth/Throat: Mouth: Mucous membranes are moist. Pharynx: Oropharynx is clear. Eyes: Extraocular Movements: Extraocular movements intact. Conjunctiva/sclera: Conjunctivae normal. Pupils: Pupils are equal, round, and reactive to light. Cardiovascular: Comments: Regular rate and rhythm, normal S1-S2, grade 2/6 systolic ejection murmur, radial pulses 2+ and symmetric. Pulmonary: Effort: Pulmonary effort is normal. No respiratory distress. Breath sounds: Normal breath sounds. No stridor. No wheezing or rhonchi. Abdominal: Comments: The abdomen is soft, nondistended and nontender. There is no rebound tenderness or guarding. Bowel sounds are normal. Skin: General: Skin is warm and dry. Capillary Refill: Capillary refill takes less than 2 seconds. Coloration: Skin is not jaundiced or pale. Findings: No bruising or erythema. Neurological: General: No focal deficit present. Mental Status: Patient is alert and oriented to person, place, and time. Mental status is at baseline. Cranial Nerves: No cranial nerve deficit. Sensory: No sensory deficit. Motor: No weakness. Coordination: Coordination normal. Psychiatric: Mood and Affect: Mood normal. Musculoskeletal: Positive pitting pedal edema bilaterally DATA: CBC: Recent Labs 07/23/247 WBC 8.8 RBC 4.55 HGB 15.2 HCT 46.5 MCV 102.2* RDW 13.8 PLT 255 BMP: Recent Labs 07/21/24 1025 07/23/24 2127 NA -- 140 K -- 4.6 CL -- 106 CO2 24 19* BUN 33* 37* CREATININE 2.01* 2.24* GLUCOSE 109* 102* CALCIUM 9.4 9.1 ANIONGAP -- 15* LIVER PROFILE: No results for input(s): AST, ALT, BILITOT, ALKPHOS, PROT in the last 72 hours. No lab exists for component: LABALBU PT/INR: No results for input(s): PROTIME, INR in the last 72 hours. CARDIAC ENZYMES: No results for input(s): TROPONINI in the last 72 hours. Procalcitonin: No results found for: PROCAL Urine Culture: No results found for this or any previous visit. COVID-19 PCR: No results for input(s): COVID19 in the last 72 hours. I reviewed: [x] laboratory results [x] radiographic results At the time of today's encounter. Pt was advised of the results. Data: (CAT1) Reviewed 3 or more labs/studies ordered by another provider not previously counted (each=1, panels count as 1). (LOW: 2x CAT1 or independent historian MOD: 3x CAT1 or 1x CAT3 EXTENSIVE: 3x CAT1 and 1x CAT3) Assessment Discussed management with the ED provider and agree with hospitalization. Acute, acute on chronic, unstable/uncontrolled chronic problems/diagnoses: Acute on chronic CHF exacerbation systolic in nature Acute kidney injury with history of kidney disease Shortness of breath Persistent leg edema Stable chronic problems affecting care, new non-acute diagnoses: History of coronary artery disease Noncompliance behavior Plan As a result of the above findings & factors, the following mgmt was pursued: -Plan to admit the patient to telemetry floor Continue monitor daily weight Continue diuresis Monitor renal function Consult cardiology As needed oxygen supplementation to maintain saturation greater than 90% Low-salt cardiac diet - am labs, replace lytes prn Lucrecia wrap bilateral lower extremities - delirium precautions: increase activity and limit nighttime disturbances - DVT prophylaxis: SCDs, encourage ambulation, and already anticoagulated Complexity: Chronic illness with severe exacerbation, progression, or side effect of tx (HIGH). Acute illness with systemic symptoms (MOD). Risk: Admission to hospital-level care was considered or occurred (HIGH). Advance Directive: Prior Anticipated Discharge - Date - 07/25/24 - Location - Home - Pending the following -treatment for CHF exacerbation Total time spent (which include face to face and non face to face encounters) : 60 minutes. Toxic drug monitoring/narrow therapeutic index drug monitoring : # Drug name : Dariel # Route administered : Oral # Method of monitoring : CBC Extended Emergency Contact Information Primary Emergency Contact: Indira Medina Mobile Relation: Sister Secondary Emergency Contact: Kaitlin Hicks Mobile Relation: Significant Other [employer] Carlo Medina : 1980 Primary Care Physician: No primary care provider on file. The patient and/or family/surrogate voluntarily agreed to participate in ACP services. Patient s cognitive capacity: Alert, oriented x 3 Code Status: [x_] [FULL CODE - Continue all advanced life support: CPR,intubation,invasive procedures] [_] [DNR-CCA - DO NOT do CPR, intubation] [_] [DNR-STONE DRESSER - Comfort care only] [_] DNR form [was/was not] signed Summary of discussion: The patient health care POA/ surrogate is the following: Patient. [Condition that instigated the ACP on this DOS, relevant PMH, functional status, goals of care, andwhom this was discussed with including names and relationship to the patient, and any relevant advance care documentation discussion] I answered all the patient/family questions that I could within the range and scope of the current medical situation. We discussed the medical conditions, risks, benefits, outcomes, and goals of careat this time for the patient's medical issues at hand in the face of the patient's chronic issues and current presentation. Total time spent: 5 minutes were spent discussing the patient's resuscitation status, advance care planning, and end of life care, with patient and/or family/surrogate. Rafa Samuel MD Division of Hospitalist Medicine [facility] [place] Phone: [phone] [id number] History and physical note* Rafa Samuel MD - 07/23/2024 10:14 PM EST Attending History and Physical Admit Date: 07/23/2024 PCP: No primary care provider on file. CHIEF COMPLAINT: Swelling. Reason for Admission: CHF exacerbation. History Obtained From: patient/ER provider HISTORY OF PRESENT ILLNESS: Carlo is a 44 y.o. male with past medical history significant for heart failure with reduced ejection fraction, chronic kidney disease, left bundle branch block, hypertension, noncompliance behavior, history of non-ST elevation ND who presented to the emergency room with complaint of swelling in the legs and shortness of breath along with abnormal labs. Patient symptoms have been going on for last couple days and has been progressively getting worse. Patient got lab work done as an outpatientper cardiology recommendation. Patient was advised by them to double up on his diuretics as the swelling was persistent in the legs. Patient had gained 10 pounds since last admission about 1 week ago. Patient received a call from the cardiology office stating the renal function is getting worse. Patient continued to have worsening swelling and shortness of breath and was advised to come to the emergency room for further evaluation Past Medical History: Past Medical History: Diagnosis Date Acute HFrEF (heart failure with reduced ejection fraction) ([facility]) 06/13/2024 Acute kidney injury superimposed on CKD ([facility]) ([facility]) 07/03/2024 At risk for obstructive sleep apnea 05/31/2024 o/p sleep study recommended during admission CHF (congestive heart failure) ([facility]) CKD (chronic kidney disease) HFrEF (heart failure with reduced ejection fraction) ([facility]) 04/28/2024 History of left bundle branch block (LBBB) 06/19/2024 Hypercholesteremia Hypertension Noncompliance 06/19/2024 NSTEMI (non-ST elevated myocardial infarction) ([facility]) 07/11/2024 Pulmonary vascular congestion 04/28/2024 Sinus tachycardia 06/19/2024 Past Surgical History: Past Surgical History: Procedure Laterality Date CARDIAC CATHETERIZATION N/A 06/17/2024 Performed by Akilah Diaz MD at [facility] 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 Social History: Social History Socioeconomic History Marital status: Single Spouse name: Not on file Number of children: Not on file Years of education: Not on file Highest education level: Not on file Occupational History Not on file Tobacco Use Smoking status: Never Passive exposure: Never Smokeless tobacco: Never Vaping Use Vaping status: Never Used Substance and Sexual Activity Alcohol use: Never Drug use: Never Comment: caffeine: none Sexual activity: Yes Partners: Female Other Topics Concern Not on file Social History Narrative Not on file Social Drivers of Health Financial Resource Strain: Low Risk (07/12/2024) Overall Financial Resource Strain (CARDIA) Difficulty of Paying Living Expenses: Not very hard Food Insecurity: No Food Insecurity (07/12/2024) Hunger Vital Sign Worried About Running Out of Food in the Last Year: Never true Ran Out of Food in the Last Year: Never true Transportation Needs: No Transportation Needs (07/12/2024) PRAPARE - Transportation Lack of Transportation (Medical): No Lack of Transportation (Non-Medical): No Physical Activity: Inactive (07/12/2024) Exercise Vital Sign Days of Exercise per Week: 0 days Minutes of Exercise per Session: 0 min Stress: Stress Concern Present (07/12/2024) [place] [employer] - Occupational Stress Questionnaire Feeling of Stress : To some extent Social Connections: Moderately Integrated (07/12/2024) Social Connection and Isolation Panel [NHANES] Frequency of Communication with Friends and Family: Twice a week Frequency of Social Gatherings with Friends and Family: Once a week Attends Holiness Services: 1 to 4 times per year Active Member of Clubs or Organizations: No Attends Club or Organization Meetings: Never Marital Status: Living with partner Intimate Partner Violence: Not At Risk (07/12/2024) Humiliation, Afraid, Rape, and Kick questionnaire Fear of Current or Ex-Partner: No Emotionally Abused: No Physically Abused: No Sexually Abused: No Housing Stability: Low Risk (07/12/2024) Housing Stability Vital Sign Unable to Pay for Housing in the Last Year: No Number of Times Moved in the Last Year: 0 Homeless in the Last Year: No Family History: Family History Problem Relation Name Age of Onset Heart disease Father Heart disease Brother Medications Prior to Admission: No current facility-administered medications on file prior to encounter. Current Outpatient Medications on File Prior to Encounter Medication Sig Dispense Refill apixaban (Eliquis) 5 MG tablet Take 1 tablet (5 mg) by mouth 2 times daily. 60 tablet 3 carvedilol (Coreg) 25 MG tablet Take 1 tablet (25 mg) by mouth 2 times daily (with meals). 60 tablet 11 cholecalciferol (Vitamin D-3) 50 MCG (2000 UT) tablet Take 2 tablets (4,000 Units) by mouth daily. 180 tablet 0 furosemide (Lasix) 40 MG tablet Take 1 tablet (40 mg) by mouth daily. sacubitril-valsartan (Entresto) 97-103 MG tablet Take 1 tablet by mouth 2 times daily. 60 tablet 12 sodium bicarbonate 650 MG tablet Take 2 tablets (1,300 mg) by mouth 2 times daily. 360 tablet 0 spironolactone (Aldactone) 25 MG tablet Take 0.5 tablets (12.5 mg) by mouth daily. 15 tablet 11 [DISCONTINUED] furosemide (Lasix) 20 MG tablet Take 1 tablet (20 mg) by mouth as needed (take for weight gain of 4 pounds). Take for weight gain of 4 pounds or more 30 tablet 11 Allergies: No Known Allergies REVIEW OF SYSTEMS: Constitutional: Negative for fever, chills, activity change and unexpected weight change. Positive for weakness HEENT: Negative for congestion, postnasal drip and sneezing. Eyes: Negative for itching and visual disturbance. Respiratory: Negative for apnea, cough, choking, chest tightness, positive for shortness of breath Cardiovascular: Negative for chest pain. Gastrointestinal: Negative for nausea, vomiting, abdominal pain, diarrhea and blood in stool. Genitourinary: Negative for dysuria, frequency and flank pain. Musculoskeletal: Negative for myalgias and joint swelling. Skin: Negative for rash. Neurological: Negative for dizziness, tremors, seizures, syncope, facial asymmetry, speech difficulty, weakness, numbness and headaches. Hematological: Negative for adenopathy. Psychiatric/Behavioral: Negative for suicidal ideas, behavioral problems, self- injury and dysphoricmood. Vitals: BP 108/84 Pulse 107 Temp 36.2 C (97.2 F) (Temporal) Resp 18 SpO2 99% BMI Classification: Pulse Ox: SpO2 Av.5 % Min: 99 % Max: 100 % Supplemental O2: PHYSICAL EXAM: Constitutional: General: Patient is not in acute distress. Appearance: Normal appearance. HENT: Head: Normocephalic and atraumatic. Right Ear: External ear normal. Left Ear: External ear normal. Mouth/Throat: Mouth: Mucous membranes are moist. Pharynx: Oropharynx is clear. Eyes: Extraocular Movements: Extraocular movements intact. Conjunctiva/sclera: Conjunctivae normal. Pupils: Pupils are equal, round, and reactive to light. Cardiovascular: Comments: Regular rate and rhythm, normal S1-S2, grade 2/6 systolic ejection murmur, radial pulses 2+ and symmetric. Pulmonary: Effort: Pulmonary effort is normal. No respiratory distress. Breath sounds: Normal breath sounds. No stridor. No wheezing or rhonchi. Abdominal: Comments: The abdomen is soft, nondistended and nontender. There is no rebound tenderness or guarding. Bowel sounds are normal. Skin: General: Skin is warm and dry. Capillary Refill: Capillary refill takes less than 2 seconds. Coloration: Skin is not jaundiced or pale. Findings: No bruising or erythema. Neurological: General: No focal deficit present. Mental Status: Patient is alert and oriented to person, place, and time. Mental status is at baseline. Cranial Nerves: No cranial nerve deficit. Sensory: No sensory deficit. Motor: No weakness. Coordination: Coordination normal. Psychiatric: Mood and Affect: Mood normal. Musculoskeletal: Positive pitting pedal edema bilaterally DATA: CBC: Recent Labs 07/23/24 2127 WBC 8.8 RBC 4.55 HGB 15.2 HCT 46.5 MCV 102.2* RDW 13.8 PLT 255 BMP: Recent Labs 07/21/24 1025 07/23/24 2127 NA -- 140 K -- 4.6 CL -- 106 CO2 24 19* BUN 33* 37* CREATININE 2.01* 2.24* GLUCOSE 109* 102* CALCIUM 9.4 9.1 ANIONGAP -- 15* LIVER PROFILE: No results for input(s): AST, ALT, BILITOT, ALKPHOS, PROT in the last 72 hours. No lab exists for component: LABALBU PT/INR: No results for input(s): PROTIME, INR in the last 72 hours. CARDIAC ENZYMES: No results for input(s): TROPONINI in the last 72 hours. Procalcitonin: No results found for: PROCAL Urine Culture: No results found for this or any previous visit. COVID-19 PCR: No results for input(s): COVID19 in the last 72 hours. I reviewed: [x] laboratory results [x] radiographic results At the time of today's encounter. Pt was advised of the results. Data: (CAT1) Reviewed 3 or more labs/studies ordered by another provider not previously counted (each=1, panels count as 1). (LOW: 2x CAT1 or independent historian MOD: 3x CAT1 or 1x CAT3 EXTENSIVE: 3x CAT1 and 1x CAT3) Assessment Discussed management with the ED provider and agree with hospitalization. Acute, acute on chronic, unstable/uncontrolled chronic problems/diagnoses: Acute on chronic CHF exacerbation systolic in nature Acute kidney injury with history of kidney disease Shortness of breath Persistent leg edema Stable chronic problems affecting care, new non-acute diagnoses: History of coronary artery disease Noncompliance behavior Plan As a result of the above findings & factors, the following mgmt was pursued: -Plan to admit the patient to telemetry floor Continue monitor daily weight Continue diuresis Monitor renal function Consult cardiology As needed oxygen supplementation to maintain saturation greater than 90% Low-salt cardiac diet - am labs, replace lytes prn Lucrecia wrap bilateral lower extremities - delirium precautions: increase activity and limit nighttime disturbances - DVT prophylaxis: SCDs, encourage ambulation, and already anticoagulated Complexity: Chronic illness with severe exacerbation, progression, or side effect of tx (HIGH). Acute illness with systemic symptoms (MOD). Risk: Admission to hospital-level care was considered or occurred (HIGH). Advance Directive: Prior Anticipated Discharge - Date - 07/25/24 - Location - Home - Pending the following -treatment for CHF exacerbation Total time spent (which include face to face and non face to face encounters) : 60 minutes. Toxic drug monitoring/narrow therapeutic index drug monitoring : # Drug name : Eliquis # Route administered : Oral # Method of monitoring : CBC Extended Emergency Contact Information Primary Emergency Contact: AdamIndira Mobile Relation: Sister Secondary Emergency Contact: Kaitlin Hicks Mobile Relation: Significant Other [employer] Carlo Shookley : 1980 Primary Care Physician: No primary care provider on file. The patient and/or family/surrogate voluntarily agreed to participate in ACP services. Patient s cognitive capacity: Alert, oriented x 3 Code Status: [x_] [FULL CODE - Continue all advanced life support: CPR,intubation,invasive procedures] [_] [DNR-CCA - DO NOT do CPR, intubation] [_] [DNR-STONE DRESSER - Comfort care only] [_] DNR form [was/was not] signed Summary of discussion: The patient health care POA/ surrogate is the following: Patient. [Condition that instigated the ACP on this DOS, relevant PMH, functional status, goals of care, andwhom this was discussed with including names and relationship to the patient, and any relevant advance care documentation discussion] I answered all the patient/family questions that I could within the range and scope of the current medical situation. We discussed the medical conditions, risks, benefits, outcomes, and goals of careat this time for the patient's medical issues at hand in the face of the patient's chronic issues and current presentation. Total time spent: 5 minutes were spent discussing the patient's resuscitation status, advance care planning, and end of life care, with patient and/or family/surrogate. Rafa Samuel MD Division of Hospitalist Medicine [facility] documented in this encounterSDetwiler Memorial [id number] Emergency department Note* Shabana Colbert RN - 07/23/2024 8:04 PM EST scanning tech called. [id number] Emergency department Note* Shabana Colbert RN - 07/23/2024 8:04 PM EST scanning tech called. * Bertha Pichardo DO - 07/23/2024 7:57 PM EST Emergency Department Encounter [facility] ED Patient: Carlo Medina : 1980 Date of Evaluation: 07/23/2024 ED Supervising Physician: Bertha Pichardo DO I personally evaluated Carlo Medina and made/approved the management plan and take responsibilityfor the patient management. This will serve as my Supervisory note and shared attestation. I did perform a substantive portion of the visit including all aspects of the Medical Decision Making. I wore appropriate PPE for the entirety of this encounter. ED Course as of 07/23/242203Jul 23, [id number] 44-year-old presents emergency department today with shortness of breath, leg swelling worse over the last few days. Has history of congestive heart failure diagnosed in January 2024 which he believes is from years of untreated hypertension. States that he has a LifeVest and had to recently increase the dose of his Lasix for the last 2 days due to worsening symptoms but recently found that hehad an acute kidney injury so was sent in for further evaluation. On exam lungs are clear bilaterally but does have pitting bilateral lower extremity edema. Heart regular rate. Will give morphine forpain check CBC, BMP, troponin, BNP, x-ray. [BM] 2048 Chest x-ray with stable cardiomegaly no evidence of focal consolidation or significant pulmonary edema or effusion. [BM] 2138 CBC unremarkable. [BM] 2203 BMP notable for worsening acute kidney injury. BNP also rising now at 26,094. Will plan on admitting for further evaluation by cardiology. [BM] ED Course User Index [BM] Bertha Pichardo DO Diagnoses as of 07/23/242203 Acute kidney injury (HCC) History of congestive heart failure Bilateral lower extremity edema Diagnostics interpreted by me: Xray(s) no significant pulmonary edema on chest x-ray evidence of cardiomegaly I personally discussed the patient's management with other clinicians: none All diagnostic, treatment, and disposition decisions were made by myself in conjunction with the [facility]. For all further details of the patient's emergency department visit, please see their documentation. (Comment: Please note this report has been produced using speech recognition software and may contain errors related to that system including errors in grammar, punctuation, and spelling, as well as words and phrases that may be inappropriate. If there are any questions or concerns please feel freeto contact the dictating provider for clarification.) Bertha Pichardo DO [employer] Bertha Pichardo DO 07/23/242203 * Dayna Alvarenga PA-C - 07/23/2024 7:57 PM EST Emergency Department Encounter [facility] ED Patient: Carlo Medina : 1980 Date of Evaluation: 07/23/2024 ED [facility] Provider: Dayna Alvarenga PA-C EDcare was supervised by Dr. Pichardo who independently examined and evaluated the patient. Pleasesee their attestation note for further details. Chief Complaint: Chief Complaint Patient presents with Shortness of Breath Abdominal Pain History of Present Illness: Carlo Medina is a 44 y.o. male with past medical history of CHFrEF 20%, CKD, HTN who presented tot emergency department for evaluation of abnormal labs, lower extremity swelling and shortness ofbreath. Patient states his symptoms have been going on for the last day. Patient states that he hadlabs drawn at his radar engineer the other day, and was told to double up on his diuretic because he was having worsening swelling of his lower extremities. On chart review patient had a 10 pound weight gain since his admission to the hospital 1 week prior to his appointment on the . Patient states he has been taking the Lasix twice a day but he has had worsening swelling of his lower extremities. He had a call today from his radar engineer that his kidney labs were elevated, states he then started having some shortness of breath especially with exertion, and intermittent chest pain.. Nursing notes were reviewed. Limitations to history: Outside historians: Review of Systems: Positives and pertinent negatives as per HPI. All other systems were reviewed and are acutely negative except as noted. Past History: Past Medical History: Diagnosis Date Acute HFrEF (heart failure with reduced ejection fraction) ([facility]) 06/13/2024 Acute kidney injury superimposed on CKD ([facility]) ([facility]) 07/03/2024 At risk for obstructive sleep apnea 05/31/2024 o/p sleep study recommended during admission CHF (congestive heart failure) ([facility]) CKD (chronic kidney disease) HFrEF (heart failure with reduced ejection fraction) ([facility]) 04/28/2024 History of left bundle branch block (LBBB) 06/19/2024 Hypercholesteremia Hypertension Noncompliance 06/19/2024 NSTEMI (non-ST elevated myocardial infarction) ([facility]) 07/11/2024 Pulmonary vascular congestion 04/28/2024 Sinus tachycardia 06/19/2024 Past Surgical History: Procedure Laterality Date CARDIAC CATHETERIZATION N/A 06/17/2024 Performed by Akilah Diaz MD at [facility] 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 Social History Socioeconomic History Marital status: Single Tobacco Use Smoking status: Never Passive exposure: Never Smokeless tobacco: Never Vaping Use Vaping status: Never Used Substance and Sexual Activity Alcohol use: Never Drug use: Never Comment: caffeine: none Sexual activity: Yes Partners: Female Social Drivers of Health Financial Resource Strain: Low Risk (07/12/2024) Overall Financial Resource Strain (CARDIA) Difficulty of Paying Living Expenses: Not very hard Food Insecurity: No Food Insecurity (07/12/2024) Hunger Vital Sign Worried About Running Out of Food in the Last Year: Never true Ran Out of Food in the Last Year: Never true Transportation Needs: No Transportation Needs (07/12/2024) PRAPARE - Transportation Lack of Transportation (Medical): No Lack of Transportation (Non-Medical): No Physical Activity: Inactive (07/12/2024) Exercise Vital Sign Days of Exercise per Week: 0 days Minutes of Exercise per Session: 0 min Stress: Stress Concern Present (07/12/2024) [place] [employer] - Occupational Stress Questionnaire Feeling of Stress : To some extent Social Connections: Moderately Integrated (07/12/2024) Social Connection and Isolation Panel [NHANES] Frequency of Communication with Friends and Family: Twice a week Frequency of Social Gatherings with Friends and Family: Once a week Attends Holiness Services: 1 to 4 times per year Active Member of Clubs or Organizations: No Attends Club or Organization Meetings: Never Marital Status: Living with partner Intimate Partner Violence: Not At Risk (07/12/2024) Humiliation, Afraid, Rape, and Kick questionnaire Fear of Current or Ex-Partner: No Emotionally Abused: No Physically Abused: No Sexually Abused: No Housing Stability: Low Risk (07/12/2024) Housing Stability Vital Sign Unable to Pay for Housing in the Last Year: No Number of Times Moved in the Last Year: 0 Homeless in the Last Year: No Medications/Allergies: Previous Medications APIXABAN (ELIQUIS) 5 MG TABLET Take 1 tablet (5 mg) by mouth 2 times daily. CARVEDILOL (COREG) 25 MG TABLET Take 1 tablet (25 mg) by mouth 2 times daily (with meals). CHOLECALCIFEROL (VITAMIN D-3) 50 MCG (2000 UT) TABLET Take 2 tablets (4,000 Units) by mouth daily. FUROSEMIDE (LASIX) 40 MG TABLET Take 1 tablet (40 mg) by mouth daily. SACUBITRIL-VALSARTAN (ENTRESTO) 97-103 MG TABLET Take 1 tablet by mouth 2 times daily. SODIUM BICARBONATE 650 MG TABLET Take 2 tablets (1,300 mg) by mouth 2 times daily. SPIRONOLACTONE (ALDACTONE) 25 MG TABLET Take 0.5 tablets (12.5 mg) by mouth daily. No Known Allergies Physical Exam: ED Triage Vitals [07/23/242001] Temp Heart Rate Resp BP 36.2 C (97.2 F) 62 18 115/81 SpO2 Temp Source Heart Rate Source Patient Position 100 % Temporal Monitor -- BP Location FiO2 (%) -- -- Physical Exam Vitals and nursing note reviewed. Constitutional: General: He is not in acute distress. Appearance: He is well-developed. HENT: Head: Normocephalic and atraumatic. Eyes: Conjunctiva/sclera: Conjunctivae normal. Cardiovascular: Rate and Rhythm: Normal rate and regular rhythm. Heart sounds: No murmur heard. Pulmonary: Effort: Pulmonary effort is normal. No respiratory distress. Breath sounds: Normal breath sounds. Abdominal: Palpations: Abdomen is soft. Tenderness: There is no abdominal tenderness. Musculoskeletal: General: No swelling. Cervical back: Neck supple. Right lower leg: Edema present. Left lower leg: Edema present. Skin: General: Skin is warm and dry. Capillary Refill: Capillary refill takes less than 2 seconds. Neurological: Mental Status: He is alert. Psychiatric: Mood and Affect: Mood normal. Screenings: Patients symptoms are consistent with sepsis, severe sepsis, or septic shock (If yes use .sepsiscoremeasure): Diagnostics: Labs: Labs Reviewed BASIC METABOLIC PANEL - Abnormal Result Value SODIUM 140 POTASSIUM 4.6 CHLORIDE 106 CARBON DIOXIDE 19 (*) UREA NITROGEN 37 (*) CREATININE 2.24 (*) GLUCOSE 102 (*) CALCIUM 9.1 ANION GAP 15 (*) eGFR 35.7 (*) CBC WITH AUTO DIFFERENTIAL - Abnormal Auto WBC 8.8 RBC 4.55 Hemoglobin 15.2 Hematocrit 46.5 MCV 102.2 (*) MCH 33.4 MCHC 32.7 RDW 13.8 Platelets 255 MPV 9.5 nRBC 0.0 Neutrophils Relative 67.5 Lymphocytes Relative 23.4 Monocytes Relative 8.6 Eosinophils Relative 0.1 Basophils Relative 0.1 Immature Grans % 0.3 Neutrophils Absolute 5.9 Lymphocytes Absolute 2.1 Monocytes Absolute 0.8 Eosinophils Absolute 0.0 Basophils Absolute 0.0 Immature Grans Absolute 0.0 NT PRO BNP - Abnormal NT PRO BNP 26,294 (*) HIGH SENSITIVITY TROPONIN, SERIAL BASELINE - Normal Troponin HS, Serial Baseline 33 HIGH SENSITIVITY TROPONIN, SERIAL, SECOND TEST Radiographs: XR chest 1 view Final Result Stable cardiomegaly. No acute process. Report Dictated on Electronically Signed By: Juan Pereira MD Electronically Signed Date/Time: 07/23/2024 8:20 PM EST Procedures: Procedures EKG: All EKG's are interpreted by the Emergency Department Physician in the absence of a radar engineer. Please see Epiphany for interpretation of EKG. Emergency Department Course and Medical Decision Making In brief, Carlo Medina is a 44 y.o. male who presented to the emergency department for evaluationof SOB. Physical exam as above, patient nontoxic in appearance. Vital signs upon arrival are normal External records reviewed: Differential considerations included NSTEMI, ACS, CHF exacerbation, dehydration, renal failure Labs were obtained, chest x-ray showed no evidence of acute cardiopulmonary normalities. CBC is benign. BMP shows worsening renal function creatinine 2.24, BUN of 37 with a GFR of 35. BNP is also elevated at 26,000. Troponin is elevated at 33, appears to be lower than previous. Given the patient's worsening renal function, would benefit from hospitalization for diuresis. Was admitted [facility] in stable condition Carlo Medina and myself have engaged in Shared Decision Making to ensure adequate and appropriateinformation was provided to Carlo Medina to assist them in choosing a course of treatment based on their own preferences and concerns. MDM elements: Diagnostic tests considered but not performed: Diagnostics interpreted by me: Discussions with other clinicians: Chronic conditions impacting care: Social determinants of health affecting care: . ED Medications managed: Medications morphine injection 4 mg (4 mg IntraVENous Given 07/23/242142) ondansetron (Zofran) injection 4 mg (4 mg IntraVENous Given 07/23/242143) Prescription drugs considered: Critical Care: None Consults: None FINAL IMPRESSION 1. Acute kidney injury (HCC) 2. History of congestive heart failure 3. Bilateral lower extremity edema DISPOSITION: Admit 07/23/2024 10:14:24 PM PATIENT REFERRED TO: No follow-up provider specified. DISCHARGE MEDICATIONS: New Prescriptions No medications on file Dayna Alvarenga PA-C [employer] Dayna Alvarenga PA-C 07/23/240 Cosigned by Bertha Pichardo DO at 07/23/2024 10:40 PM EST * Shabana Colbert RN - 07/23/2024 7:57 PM EST Pt arrived through triage with c/o SOB and abdominal pain. Pt also c/o chest burning sensation whenwalking. Pt states his PCP said his kidney levels were elevated and recommended coming to the ER. Pt reports nausea and having increased swelling in his legs. Pt reports hx of CHF. documented in this encounterSDet[facility] [id number] Emergency department Triage note* Shabana Colbert RN - 07/23/2024 7:57 PM EST Pt arrived through triage with c/o SOB and abdominal pain. Pt also c/o chest burning sensation whenwalking. Pt states his PCP said his kidney levels were elevated and recommended coming to the ER. Pt reports nausea and having increased swelling in his legs. Pt reports hx of CHF. [id number] Emergency department Note* Bertha Pichardo DO - 07/23/2024 7:57 PM EST Emergency Department Encounter [facility] ED Patient: Carlo Medina : 1980 Date of Evaluation: 07/23/2024 ED Supervising Physician: Bertha Pichardo DO I personally evaluated Carlo Medina and made/approved the management plan and take responsibilityfor the patient management. This will serve as my Supervisory note and shared attestation. I did perform a substantive portion of the visit including all aspects of the Medical Decision Making. I wore appropriate PPE for the entirety of this encounter. ED Course as of 07/23/242203Jul 23, [id number] 44-year-old presents emergency department today with shortness of breath, leg swelling worse over the last few days. Has history of congestive heart failure diagnosed in January 2024 which he believes is from years of untreated hypertension. States that he has a LifeVest and had to recently increase the dose of his Lasix for the last 2 days due to worsening symptoms but recently found that hehad an acute kidney injury so was sent in for further evaluation. On exam lungs are clear bilaterally but does have pitting bilateral lower extremity edema. Heart regular rate. Will give morphine forpain check CBC, BMP, troponin, BNP, x-ray. [BM] 2048 Chest x-ray with stable cardiomegaly no evidence of focal consolidation or significant pulmonary edema or effusion. [BM] 2138 CBC unremarkable. [BM] 2203 BMP notable for worsening acute kidney injury. BNP also rising now at 26,094. Will plan on admitting for further evaluation by cardiology. [BM] ED Course User Index [BM] Bertha Pichardo DO Diagnoses as of 07/23/242203 Acute kidney injury (HCC) History of congestive heart failure Bilateral lower extremity edema Diagnostics interpreted by me: Xray(s) no significant pulmonary edema on chest x-ray evidence of cardiomegaly I personally discussed the patient's management with other clinicians: none All diagnostic, treatment, and disposition decisions were made by myself in conjunction with the [facility]. For all further details of the patient's emergency department visit, please see their documentation. (Comment: Please note this report has been produced using speech recognition software and may contain errors related to that system including errors in grammar, punctuation, and spelling, as well as words and phrases that may be inappropriate. If there are any questions or concerns please feel freeto contact the dictating provider for clarification.) Bertha Pichardo DO [employer] Bertha Pichardo DO 07/23/242203 [facility] [id number] Physician Emergency department Note* Dayna Alvarenag PA-C - 07/23/2024 7:57 PM EST Emergency Department Encounter [facility] ED Patient: Carlo Medina : 1980 Date of Evaluation: 07/23/2024 ED [facility] Provider: Dayna Alvarenga PA-C EDcare was supervised by Dr. Pichardo who independently examined and evaluated the patient. Pleasesee their attestation note for further details. Chief Complaint: Chief Complaint Patient presents with Shortness of Breath Abdominal Pain History of Present Illness: Carlo Medina is a 44 y.o. male with past medical history of CHFrEF 20%, CKD, HTN who presented tot emergency department for evaluation of abnormal labs, lower extremity swelling and shortness ofbreath. Patient states his symptoms have been going on for the last day. Patient states that he hadlabs drawn at his radar engineer the other day, and was told to double up on his diuretic because he was having worsening swelling of his lower extremities. On chart review patient had a 10 pound weight gain since his admission to the hospital 1 week prior to his appointment on the . Patient states he has been taking the Lasix twice a day but he has had worsening swelling of his lower extremities. He had a call today from his radar engineer that his kidney labs were elevated, states he then started having some shortness of breath especially with exertion, and intermittent chest pain.. Nursing notes were reviewed. Limitations to history: Outside historians: Review of Systems: Positives and pertinent negatives as per HPI. All other systems were reviewed and are acutely negative except as noted. Past History: Past Medical History: Diagnosis Date Acute HFrEF (heart failure with reduced ejection fraction) ([facility]) 06/13/2024 Acute kidney injury superimposed on CKD (HCC) ([facility]) 07/03/2024 At risk for obstructive sleep apnea 05/31/2024 o/p sleep study recommended during admission CHF (congestive heart failure) ([facility]) CKD (chronic kidney disease) HFrEF (heart failure with reduced ejection fraction) ([facility]) 04/28/2024 History of left bundle branch block (LBBB) 06/19/2024 Hypercholesteremia Hypertension Noncompliance 06/19/2024 NSTEMI (non-ST elevated myocardial infarction) ([facility]) 07/11/2024 Pulmonary vascular congestion 04/28/2024 Sinus tachycardia 06/19/2024 Past Surgical History: Procedure Laterality Date CARDIAC CATHETERIZATION N/A 06/17/2024 Performed by Akilah Diaz MD at [facility] 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 Social History Socioeconomic History Marital status: Single Tobacco Use Smoking status: Never Passive exposure: Never Smokeless tobacco: Never Vaping Use Vaping status: Never Used Substance and Sexual Activity Alcohol use: Never Drug use: Never Comment: caffeine: none Sexual activity: Yes Partners: Female Social Drivers of Health Financial Resource Strain: Low Risk (07/12/2024) Overall Financial Resource Strain (CARDIA) Difficulty of Paying Living Expenses: Not very hard Food Insecurity: No Food Insecurity (07/12/2024) Hunger Vital Sign Worried About Running Out of Food in the Last Year: Never true Ran Out of Food in the Last Year: Never true Transportation Needs: No Transportation Needs (07/12/2024) PRAPARE - Transportation Lack of Transportation (Medical): No Lack of Transportation (Non-Medical): No Physical Activity: Inactive (07/12/2024) Exercise Vital Sign Days of Exercise per Week: 0 days Minutes of Exercise per Session: 0 min Stress: Stress Concern Present (07/12/2024) [place] [employer] - Occupational Stress Questionnaire Feeling of Stress : To some extent Social Connections: Moderately Integrated (07/12/2024) Social Connection and Isolation Panel [NHANES] Frequency of Communication with Friends and Family: Twice a week Frequency of Social Gatherings with Friends and Family: Once a week Attends Holiness Services: 1 to 4 times per year Active Member of Clubs or Organizations: No Attends Club or Organization Meetings: Never Marital Status: Living with partner Intimate Partner Violence: Not At Risk (07/12/2024) Humiliation, Afraid, Rape, and Kick questionnaire Fear of Current or Ex-Partner: No Emotionally Abused: No Physically Abused: No Sexually Abused: No Housing Stability: Low Risk (07/12/2024) Housing Stability Vital Sign Unable to Pay for Housing in the Last Year: No Number of Times Moved in the Last Year: 0 Homeless in the Last Year: No Medications/Allergies: Previous Medications APIXABAN (ELIQUIS) 5 MG TABLET Take 1 tablet (5 mg) by mouth 2 times daily. CARVEDILOL (COREG) 25 MG TABLET Take 1 tablet (25 mg) by mouth 2 times daily (with meals). CHOLECALCIFEROL (VITAMIN D-3) 50 MCG (2000 UT) TABLET Take 2 tablets (4,000 Units) by mouth daily. FUROSEMIDE (LASIX) 40 MG TABLET Take 1 tablet (40 mg) by mouth daily. SACUBITRIL-VALSARTAN (ENTRESTO) 97-103 MG TABLET Take 1 tablet by mouth 2 times daily. SODIUM BICARBONATE 650 MG TABLET Take 2 tablets (1,300 mg) by mouth 2 times daily. SPIRONOLACTONE (ALDACTONE) 25 MG TABLET Take 0.5 tablets (12.5 mg) by mouth daily. No Known Allergies Physical Exam: ED Triage Vitals [07/23/242001] Temp Heart Rate Resp BP 36.2 C (97.2 F) 62 18 115/81 SpO2 Temp Source Heart Rate Source Patient Position 100 % Temporal Monitor -- BP Location FiO2 (%) -- -- Physical Exam Vitals and nursing note reviewed. Constitutional: General: He is not in acute distress. Appearance: He is well-developed. HENT: Head: Normocephalic and atraumatic. Eyes: Conjunctiva/sclera: Conjunctivae normal. Cardiovascular: Rate and Rhythm: Normal rate and regular rhythm. Heart sounds: No murmur heard. Pulmonary: Effort: Pulmonary effort is normal. No respiratory distress. Breath sounds: Normal breath sounds. Abdominal: Palpations: Abdomen is soft. Tenderness: There is no abdominal tenderness. Musculoskeletal: General: No swelling. Cervical back: Neck supple. Right lower leg: Edema present. Left lower leg: Edema present. Skin: General: Skin is warm and dry. Capillary Refill: Capillary refill takes less than 2 seconds. Neurological: Mental Status: He is alert. Psychiatric: Mood and Affect: Mood normal. Screenings: Patients symptoms are consistent with sepsis, severe sepsis, or septic shock (If yes use .sepsiscoremeasure): Diagnostics: Labs: Labs Reviewed BASIC METABOLIC PANEL - Abnormal Result Value SODIUM 140 POTASSIUM 4.6 CHLORIDE 106 CARBON DIOXIDE 19 (*) UREA NITROGEN 37 (*) CREATININE 2.24 (*) GLUCOSE 102 (*) CALCIUM 9.1 ANION GAP 15 (*) eGFR 35.7 (*) CBC WITH AUTO DIFFERENTIAL - Abnormal Auto WBC 8.8 RBC 4.55 Hemoglobin 15.2 Hematocrit 46.5 MCV 102.2 (*) MCH 33.4 MCHC 32.7 RDW 13.8 Platelets 255 MPV 9.5 nRBC 0.0 Neutrophils Relative 67.5 Lymphocytes Relative 23.4 Monocytes Relative 8.6 Eosinophils Relative 0.1 Basophils Relative 0.1 Immature Grans % 0.3 Neutrophils Absolute 5.9 Lymphocytes Absolute 2.1 Monocytes Absolute 0.8 Eosinophils Absolute 0.0 Basophils Absolute 0.0 Immature Grans Absolute 0.0 NT PRO BNP - Abnormal NT PRO BNP 26,294 (*) HIGH SENSITIVITY TROPONIN, SERIAL BASELINE - Normal Troponin HS, Serial Baseline 33 HIGH SENSITIVITY TROPONIN, SERIAL, SECOND TEST Radiographs: XR chest 1 view Final Result Stable cardiomegaly. No acute process. Report Dictated on Electronically Signed By: Juan Pereira MD Electronically Signed Date/Time: 07/23/2024 8:20 PM EST Procedures: Procedures EKG: All EKG's are interpreted by the Emergency Department Physician in the absence of a radar engineer. Please see Bonita for interpretation of EKG. Emergency Department Course and Medical Decision Making In brief, Carlo Medina is a 44 y.o. male who presented to the emergency department for evaluationof SOB. Physical exam as above, patient nontoxic in appearance. Vital signs upon arrival are normal External records reviewed: Differential considerations included NSTEMI, ACS, CHF exacerbation, dehydration, renal failure Labs were obtained, chest x-ray showed no evidence of acute cardiopulmonary normalities. CBC is benign. BMP shows worsening renal function creatinine 2.24, BUN of 37 with a GFR of 35. BNP is also elevated at 26,000. Troponin is elevated at 33, appears to be lower than previous. Given the patient's worsening renal function, would benefit from hospitalization for diuresis. Was [facility] in [facility] condition Carlo Medina and myself have engaged in Shared Decision Making to ensure adequate and appropriateinformation was provided to Carlo Medina to assist them in choosing a course of treatment based on their own preferences and concerns. MDM elements: Diagnostic tests considered but not performed: Diagnostics interpreted by me: Discussions with other clinicians: Chronic conditions impacting care: Social determinants of health affecting care: . ED Medications managed: Medications morphine injection 4 mg (4 mg IntraVENous Given 07/23/242142) ondansetron (Zofran) injection 4 mg (4 mg IntraVENous Given 07/23/242143) Prescription drugs considered: Critical Care: None Consults: None FINAL IMPRESSION 1. Acute kidney injury (HCC) 2. History of congestive heart failure 3. Bilateral lower extremity edema DISPOSITION: Admit 07/23/2024 10:14:24 PM PATIENT REFERRED TO: No follow-up provider specified. DISCHARGE MEDICATIONS: New Prescriptions No medications on file Dayna Alvarenga PA-C [employer] Dayna Alvarenga PA-C 07/23/242229 Cosigned by Bertha Pichardo DO at 07/23/2024 10:40 PM EST [id number] Telephone encounter Note* Telephone Encounter - THOMAS Mi CNP - 07/23/2024 12:20 PM EST Pt is now scheduled to be seen in the [facility] CHF clinic next week 07/28/2024 at 9:30 am. I left another message asking that he hold Entresto until seen in the CHF clinic and continue lasix. [id number] Miscellaneous Notes* Telephone Encounter - THOMAS Mi CNP - 07/23/2024 12:20 PM EST Pt is now scheduled to be seen in the [facility] CHF clinic next week 07/28/2024 at 9:30 am. I left another message asking that he hold Entresto until seen in the CHF clinic and continue lasix. * Telephone Encounter - THOMAS Mi CNP - 07/23/2024 9:52 AM EST I left a message for both Carlo Medina and his significant other requesting a return phone call. I received BMP results from July 21, 2024 noting worsening kidney function, creatinine 2.01, BUN 33, potassium elevated at 5.8. Patient was seen in office July 21, 2024 and found to be back in heart failure, with poor compliance with medications including diuretics. I discussed plan of care with Dr. Zhang who recommends this patient's complicated heart failure symptoms are best served treated in the heart failure clinic at [facility]. [place] to [place] complexity of his care. Would recommend an expedient follow-up scheduled at the heart failure clinic at [facility], if unable to schedule, if patient calls back and is feeling poorly, would recommend he proceed to the emergency room at [facility] for expedient evaluation and treatment. documented in this encounterSDetwiler [facility] [id number] Telephone encounter Note* Telephone Encounter - Saarh Pierre - 07/23/2024 10:17 AM EST LM for pt that they are seeing Dr Astudillo on 07/28/2024 @ 9:30a [id number] Miscellaneous Notes* Telephone Encounter - Sarah Pierre - 07/23/2024 10:17 AM EST LM for pt that they are seeing Dr Astudillo on 07/28/2024 @ 9:30a * Telephone Encounter - Kaitlin Parker - 07/23/2024 10:01 AM EST Patient will need scheduled for a Follow up with heart failure clinic [facility] per Yulissa. Please call patient to schedule. documented in this encounterSDetwiler [facility] [id number] Telephone encounter Note* Telephone Encounter - Kaitlin Parker - 07/23/2024 10:01 AM EST Patient will need scheduled for a Follow up with heart failure clinic [facility] per Yulissa. Please call patient to schedule. [facility] [id number] Telephone encounter Note* Telephone Encounter - THOMAS Mi CNP - 07/23/2024 9:52 AM EST I left a message for both Carlo Medina and his significant other requesting a return phone call. I received BMP results from July 21, 2024 noting worsening kidney function, creatinine 2.01, BUN 33, potassium elevated at 5.8. Patient was seen in office July 21, 2024 and found to be back in heart failure, with poor compliance with medications including diuretics. I discussed plan of care with Dr. Zhang who recommends this patient's complicated heart failure symptoms are best served treated in the heart failure clinic at [facility]. It [place], due to ongoing complexity of his care. Would recommend an expedient follow-up scheduled at the heart failure clinic at [facility], if unable to schedule, if patient calls back and is feeling poorly, would recommend he proceed to the emergency room at [facility] for expedient evaluation and treatment. [id number] History of Present illness Narrative* THOMAS Mi CNP - 07/21/2024 9:30 AM EST Images from the original note were not included. [facility] Card[facility] Office Note DATE of SERVICE: 07/21/24 TIME of SERVICE: 10:06 AM Reason for Visit: Chief Complaint Patient presents with Hospital Follow-up History ofPresent Illness: Carlo Medina is a 44 y.o. male who is known to Dr. Zhang. He has a history of nonischemic cardiomyopathy with severe biventricular failure, last EF measured 20% per transthoracic echo June 15, 2024. His care has been complicated by poor health literacy, poor medication compliance. He is accompanied today by his significant other who appears to have a much better understanding of the severity of his illness. He presents in office today after a repeat admission for volume overload, he was admitted to [facility] 07/11/2024-07/16/2024. He was treated for volume overload. Upon reviewing hospital notes he frequently refused to take medication, he was educated multiple times regarding heart failure self-care, the importance of each and every one of his medications, the importance of daily weights. He was recommended for ICD implantation, he had multiple episodes of NSVT while admitted. He declined ICD but was fitted for a LifeVest prior to discharge. Today in office unfortunately weight is up 10 pounds to 189 compared to 179 pounds on discharge. Upon reviewing medications he tells me he has not been taking Entresto, he is also not taken any Lasixsince his discharge, despite noticing his weight going up progressively since his discharge. When Iasked why specifically he has not taken his diuretic, he simply says I forgot. He has not yet taken his morning doses of carvedilol, heart rate elevated today. I again spent greater than 10 minuteseducating regarding the importance of each and every one of his medications, specifically taking diuretics if his weight is going up. He was discharged on as needed Lasix 20 mg, I have changed this to 40 mg daily. I advised for the next 3 days to take Lasix 40 mg twice daily, he will then decrease to 40 mg daily thereafter. When decreasing Lasix to once daily dosing, I advise he also restart Entresto 97/103 mg twice daily. I have ordered a BMP today, again in 1 week, will also arrange an expedient 1 week office follow-up for continued close evaluation. He tells me that he may decide just to go to the emergency room. I advised that if he does not have improvement within 3 days of taking diuretics, I would also advise ED. Past Medical History: Past Medical History: Diagnosis Date CHF (congestive heart failure) (HCC) CKD (chronic kidney disease) Hypercholesteremia Hypertension Past Surgical History Past Surgical History: Procedure Laterality Date CARDIAC CATHETERIZATION N/A 06/17/2024 Performed by Akilah Diaz MD at [facility] 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 Family History Family History Problem Relation Name Age of Onset Heart disease Father Heart disease Brother Social History Social History Tobacco Use Smoking status: Never Passive exposure: Never Smokeless tobacco: Never Vaping Use Vaping status: Never Used Substance Use Topics Alcohol use: Never Drug use: Never Comment: caffeine: none Allergies: No Known Allergies Medications: Current Outpatient Medications: apixaban (Eliquis) 5 MG tablet, Take 1 tablet (5 mg) by mouth 2 times daily., Disp: 60 tablet, Rfl:3 carvedilol (Coreg) 25 MG tablet, Take 1 tablet (25 mg) by mouth 2 times daily (with meals)., Disp: 60 tablet, Rfl: 11 cholecalciferol (Vitamin D-3) 50 MCG (2000 UT) tablet, Take 2 tablets (4,000 Units) by mouth daily., Disp: 180 tablet, Rfl: 0 sacubitril-valsartan (Entresto) 97-103 MG tablet, Take 1 tablet by mouth 2 times daily., Disp: 60 tablet, Rfl: 12 sodium bicarbonate 650 MG tablet, Take 2 tablets (1,300 mg) by mouth 2 times daily., Disp: 360 tablet, Rfl: 0 spironolactone (Aldactone) 25 MG tablet, Take 0.5 tablets (12.5 mg) by mouth daily., Disp: 15 tablet, Rfl: 11 furosemide (Lasix) 40 MG tablet, Take 1 tablet (40 mg) by mouth daily., Disp: , Rfl: Review of Systems: Review of Systems Constitutional: Negative for activity change, chills, diaphoresis, fatigue and fever. Pt states he has been feeling more swollen since his discharge, weight is up 10 lbs HENT: Negative for nosebleeds and trouble swallowing. Eyes: Negative for discharge and visual disturbance. Respiratory: Negative for apnea, cough, chest tightness, shortness of breath and wheezing. States I am always SOB with exertion denies worsening symptoms Cardiovascular: Positive for leg swelling (legs have been more swollen over the last week). Negative for chest pain and palpitations. Denies chest pain or palpitations Gastrointestinal: Positive for abdominal pain (states my abdomen always hurts). Negative for abdominal distention, blood in stool, diarrhea, nausea and vomiting. Endocrine: Negative for cold intolerance and heat intolerance. Genitourinary: Negative for hematuria. Musculoskeletal: Negative for gait problem and myalgias. Skin: Negative for color change and rash. Neurological: Negative for dizziness, seizures, syncope, facial asymmetry, speech difficulty, weakness, light-headedness, numbness and headaches. Denies dizziness or light headedness Hematological: Does not bruise/bleed easily. Psychiatric/Behavioral: Negative for dysphoric mood. Physical Examination: Vitals: BP (S) (!) 120/98 (BP Location: Left arm, Patient Position: Sitting, BP Cuff Size: Adult) Pulse 104 Ht 6' 1 (1.854 m) Wt 189 lb 3.2 oz (85.8 kg) SpO2 94% BMI 24.96 kg/m Body mass index is 24.96 kg/m . Physical Exam Constitutional: Appearance: Normal appearance. Comments: Appears decompensated HENT: Head: Normocephalic. Eyes: General: Right eye: No discharge. Left eye: No discharge. Neck: Comments: No JVD Cardiovascular: Rate and Rhythm: Regular rhythm. Tachycardia present. Heart sounds: No murmur heard. Comments: Heart rate elevated, no murmer's present Pulmonary: Effort: Pulmonary effort is normal. Breath sounds: Normal breath sounds. No wheezing or rales. Comments: Clear t/o Abdominal: General: Bowel sounds are normal. There is no distension. Palpations: Abdomen is soft. Musculoskeletal: Cervical back: Neck supple. Right lower leg: Edema present. Left lower leg: Edema present. Comments: 2+ pitting edema present BLE knees down Skin: General: Skin is warm. Findings: No erythema or rash. Neurological: Mental Status: He is alert and oriented to person, place, and time. Psychiatric: Behavior: Behavior normal. Laboratory Tests: Lab Results Component Value Date GLUCOSE 102 (H) 07/16/2024 CALCIUM 7.0 (L) 07/16/2024 NA 133 (L) 07/16/2024 K 4.8 07/16/2024 CO2 17 (L) 07/16/2024 CL 109 (H) 07/16/2024 BUN 27 (H) 07/16/2024 CREATININE 1.40 (H) 07/16/2024 Lab Results Component Value Date CHOL 130 06/14/2024 CHOL 172 02/29/2024 Lab Results Component Value Date TRIG 68 06/14/2024 TRIG 88 02/29/2024 Lab Results Component Value Date HDL 16 (L) 06/14/2024 HDL 28 (L) 02/29/2024 Lab Results Component Value Date LDLCALC 100 (H) 06/14/2024 LDLCALC 126 (H) 02/29/2024 No results found for: VLDL Lab Results Component Value Date CHOLHDLRATIO 8 06/14/2024 CHOLHDLRATIO 6 02/29/2024 Other Testing: Cardiac Tests: Last Echo (date: 06/15/2024): Left Ventricle: Left ventricle is dilated. Mildly increased wall thickness. Severely reduced left ventricular systolic function. EF by 2D Simpsons Biplane is 20%. Global longitudinal strain is reduced with a value of -5.0%. Severe global hypokinesis present. Right Ventricle: Right ventricle is dilated. Moderately reduced systolic function. Aortic Valve: Mild (1+) regurgitation. Mitral Valve: Moderate (2+) regurgitation with an eccentrically directed jet and and may underestimate severity. Tricuspid Valve: Moderately elevated RVSP. RVSP is 46 mmHg. Pericardium: Small (<1 cm) pericardial effusion present. Findings do not support cardiac tamponade. IVC/Hepatic Veins: IVC diameter is dilated and decreases less than 50% during inspiration; therefore the estimated right atrial pressure is elevated (~15 mmHg). Slow blood flow, echogenic. Cardiac Catheterization (date: 06/17/2024): No significant epicardial coronary artery disease Milldy elevated right heart pressures: RA 7 mmHg, mean PA pressure 27 mmHg Elevated PCWP ~ 23mmHg, and LVEDP ~ 25 mmHg Decreased cardiac output/index. By Rodney, output: 3/0 L/min index 1.5: By thermodilution, output: 3.1 L/min index: SVR ~ 2200 Assessment and Plan: 1. Heart failure reduced EF, nonischemic cardiomyopathy, [employer] functional class III, stage C-appears decompensated -As outlined above I have discontinued the as needed Lasix 20 mg dosing, changed to 40 mg daily. For the next 3 days he will take Lasix 40 mg twice daily, then decrease to 40 mg daily thereafter. -I advise he restart taking Entresto 97/103 mg twice daily in 3 days, when resuming the once daily Lasix dosing -Carvedilol 25 mg twice daily continues along with Aldactone 12.5 mg daily. -I have ordered a BMP today, again in 1 week -Will arrange a 1 week expedient office visit for continued close evaluation -Extensive heart failure self-care education given today -Would consider adding Farxiga 10 mg daily at his next scheduled office appointment once he is moreeuvolemic 2. Prevention of cardiac -he was fitted for LifeVest prior to discharge, he is actually not presently wearing his LifeVest. I advise he wear his LifeVest as much as possible, will again discuss potential EP referral for placement of ICD when seen next in office. 3. History of pulmonary embolism-continues on Eliquis 5 mg twice daily 4. Hypertension-blood pressure mildly elevated today, he has not yet taken any of his medication. Again extensive medication education given today, will continue to monitor. 5. Follow-up-1 week, BMP ordered today, again in 1 week. Morgan Ulloa APRN/VIKKI documented in this encounterSDetwiler Memorial [id number] Telephone encounter Note* Telephone Encounter - Kaitlin Gonzalez LPN - 07/20/2024 10:02 AM EST Unable to contact patient X2 [id number] Miscellaneous Notes* Telephone Encounter - Kaitlin Gonzalez LPN - 07/20/2024 10:02 AM EST Unable to contact patient X2 * Telephone Encounter - Kaitlin Gonzalez LPN - 07/19/2024 10:46 AM EST S: Patient admitted to: [facility] 07/11/24 B: Discharged on : 07/16/24 A: Hospital follow up call initiated to discuss any medication changes, follow up appointments and discharge instructions: NSTEMI (non-ST elevated myocardial infarction) R: No contact x 1 at : [phone] documented in this encounterSDetwiler Memorial [id number] Telephone encounter Note* Telephone Encounter - Kaitlin Gonzalez LPN - 07/19/2024 10:46 AM EST S: Patient admitted to: [facility] 07/11/24 B: Discharged on : 07/16/24 A: Hospital follow up call initiated to discuss any medication changes, follow up appointments and discharge instructions: NSTEMI (non-ST elevated myocardial infarction) R: No contact x 1 at : [phone] [id number] Telephone encounter Note* Telephone Encounter - THOMAS Valencia CNP - 07/16/2024 5:04 PM EST Late chart note. Patient already discharged from the hospital. I have seen him throughout his stay at [facility] this week. It has been a challenge to get him to cooperate with medications. He often delayedtaking his morning medications. I have spent extensive time with him each day I saw him re-educating him on the importance of medication and compliance with follow up. Every time a new medication waseither added or titration of something he was already on he challenged the decision and I had to continually go back and discuss over and over with him. I have discussed each medication and it's purpose, each test that was completed, his labs, need for ICD (finally accepted wearing a life vest), etc. Nursing has had to communicate with me on multiple occasions regarding his not wanting to take all of these medications. Nursing staff, myself and Dr. Lima have visited him many times throughout his stay to re-educate him. [facility] Work Phone: [phone] 459-518701-17-2025 Miscellaneous Notes* Telephone Encounter - THOMAS Valencia CNP - 07/16/2024 5:04 PM EST Late chart note. Patient already discharged from the hospital. I have seen him throughout his stay at [facility] this week. It has been a challenge to get him to cooperate with medications. He often delayedtaking his morning medications. I have spent extensive time with him each day I saw him re-educating him on the importance of medication and compliance with follow up. Every time a new medication waseither added or titration of something he was already on he challenged the decision and I had to continually go back and discuss over and over with him. I have discussed each medication and it's purpose, each test that was completed, his labs, need for ICD (finally accepted wearing a life vest), etc. Nursing has had to communicate with me on multiple occasions regarding his not wanting to take all of these medications. Nursing staff, myself and Dr. Lima have visited him many times throughout his stay to re-educate him. documented in this [facility]01-17-2025 [facility] 07-16-2024 Hospital course Narrative* Lilibeth Huber, THOMAS Xiao CNP - 07/16/2024 2:12 PM EST Hospitalist Discharge Summary Carlo Medina : 1980 Admit date: 07/11/2024 Discharge date: 07/16/2024 Admitting Physician: Rafa Samuel MD Primary Care Physician: No primary care provider on file. Visit Status: inpatient Code Status: Full Code BRIEF HOSPITAL COURSE: 44-year-old gentleman with past medical history of nonischemic cardiomyopathy, CKD, hypertension, hyperlipidemia who presented the emergency room with complaint of shortness of breath, abdominal pain, cough. Denied any nausea, vomiting or diarrhea. Patient has a known history of heart failure was recently discharged from [facility] after presenting with similar symptoms. The patient was initiallytreated in the emergency room for a non-STEMI ND secondary to elevated troponins and was placed on IV heparin. 07/12/24: Was seen by Cardiology and determined Trops were elevated 2/2 Acute exacerbation of HF. Heparin gtt stopped and HF treated 07/13/24:intermittent episodes of symptomatic (palpitations) ST resolved with IV Metoprolol 5 mg IV,Placed on low dose Coreg 07/14/24: symptomatic episode with dizziness recurrent episode of ST spontaneous conversion. Pt agreed to take his prescribed oral medication Discussed with Dr. Lima regarding last nights episode. Cardiology states he is having symptomatic VT and recommended transfer to [facility] for EP evaluation and ICD. Pt is reluctant to proceed and feelswe are rushing him. Pt brought up life vest and explained that would only be a temporary treatment.PT was made aware of his high risk for SCD. Acute, acute on chronic, unstable/uncontrolled chronic problems/discharge diagnoses: Dilated nonischemic cardiomyopathy HFrEF- EF 20% Coreg, cardiology increasing as tolerated , PRN lasix , cardiology adjusting Entresto Ventricular tachycardia - symptomatic with sustained BT, cardiology recommnending transfer to [facility] but patient refusing , optimized on medications , going home on life vest Elevated troponin - Type ll 2/2 stress from acute heart failure Transaminitis- chronic Stable chronic problems affecting care, new non-acute discharge diagnoses: CKD lllb HTN Hx DVT- apixaban 5 mg BID HPL Hx pulmonary embolus - continue Eliquis Past Medical History: Diagnosis Date CHF (congestive heart failure) (HCC) CKD (chronic kidney disease) Hypercholesteremia Hypertension Procedures: Hospital Course: Patient recommended to be transferred to [facility] for possible ICD placement after symptomatic runs of VT. Patient refused . He will go home with a life vest per cardiology and only remove for hygiene purposes. Patient cleared for discharge by cardiology. See discharge diagnoses list above and medication adjustments below in med rec.The patient is discharged in improved and stable condition. Consults: IP CONSULT TO HEART FAILURE NURSE/COORDINATOR IP CONSULT TO CARDIOLOGY Discharge Instructions: Diet: Dietary Orders (From admission, onward) Start Ordered 07/12/24 0458 Adult diet Regular; Low Sodium (2 gm) Diet effective now Question Answer Comment Diet type Regular Sodium restriction: Low Sodium (2 gm) 07/12/24 8666 Activity: as tolerated Recommended Outpatient Tests: Disposition: Patient discharged in stable condition to Home. Greater than 31 minutes spent discharging the patient and coming up with patient discharge plan. Vitals: BP 99/66 (BP Location: Right arm, Patient Position: Lying) Pulse 88 Temp 36.1 C (97 F) (Temporal) Resp 18 Ht 6' 1 (1.854 m) Wt 179 lb 10.8 oz (81.5 kg) SpO2 99% BMI 23.71 kg/m Pulse Ox: SpO2 Av.2 % Min: 92 % Max: 100 % Supplemental O2: Physical Exam Vitals and nursing note reviewed. Constitutional: General: He is not in acute distress. Appearance: Normal appearance. HENT: Head: Normocephalic and atraumatic. Nose: Nose normal. Mouth/Throat: Mouth: Mucous membranes are moist. Eyes: Extraocular Movements: Extraocular movements intact. Conjunctiva/sclera: Conjunctivae normal. Pupils: Pupils are equal, round, and reactive to light. Cardiovascular: Rate and Rhythm: Normal rate and regular rhythm. Pulmonary: Effort: Pulmonary effort is normal. Breath sounds: Normal breath sounds. Abdominal: General: Bowel sounds are normal. There is no distension. Palpations: Abdomen is soft. Tenderness: There is no abdominal tenderness. There is no right CVA tenderness, left CVA tenderness, guarding or rebound. Musculoskeletal: General: Normal range of motion. Cervical back: Normal range of motion. Skin: General: Skin is warm and dry. Neurological: General: No focal deficit present. Mental Status: He is alert and oriented to person, place, and time. Psychiatric: Mood and Affect: Mood normal. Behavior: Behavior normal. Thought Content: Thought content normal. Comments: Displays poor insight into medical conditions LABS: Recent Labs 07/14/24 0451 07/15/24 0206 07/16/24 0326 NA 137 134* 133* K 4.2 4.5 4.8 CL 104 108* 109* CO2 23 22 17* BUN 33* 30* 27* CREATININE 1.81* 1.54* 1.40* GLUCOSE 115* 108* 102* CALCIUM 8.3* 6.9* 7.0* Recent Labs 07/15/24 0206 WBC 5.5 RBC 3.62* HGB 12.2* HCT 37.7* MCV 104.1* MCH 33.7 MCHC 32.4 RDW 13.7 PLT 242 MPV 10.2 Discharge Medications: Medication List START taking these medications apixaban 5 MG tablet Commonly known as: Eliquis Take 1 tablet (5 mg) by mouth 2 times daily. carvedilol 25 MG tablet Commonly known as: Coreg Take 1 tablet (25 mg) by mouth 2 times daily (with meals). sacubitril-valsartan 97-103 MG tablet Commonly known as: Entresto Take 1 tablet by mouth 2 times daily. spironolactone 25 MG tablet Commonly known as: Aldactone Take 0.5 tablets (12.5 mg) by mouth daily. CHANGE how you take these medications furosemide 20 MG tablet Commonly known as: Lasix Take 1 tablet (20 mg) by mouth as needed (take for weight gain of 4 pounds). Take for weight gain of 4 pounds or more What changed: medication strength how much to take when to take this reasons to take this additional instructions CONTINUE taking these medications cholecalciferol 50 MCG (2000 UT) tablet Commonly known as: Vitamin D-3 Take 2 tablets (4,000 Units) by mouth daily. sodium bicarbonate 650 MG tablet Take 2 tablets (1,300 mg) by mouth 2 times daily. STOP taking these medications losartan 50 MG tablet Commonly known as: Cozaar Where to Get Your Medications These medications were sent to [facility] [address] [place] [address] Hours: Friday to Friday 10 am to 6 pm apixaban 5 MG tablet carvedilol 25 MG tablet furosemide 20 MG tablet sacubitril-valsartan 97-103 MG tablet spironolactone 25 MG tablet Recommended Follow-up: Morgan Ulloa APRN - WHITING MACHINE OPERATOR [address] [place] [address], [address] [facility] [address] Follow up on 07/23/2024 cardiology follow up @ 2:30. Please get your lab work completed the day prior to this visit. Complexity of Follow up: [] Moderate Complexity: follow up within 7-14 calendar days (81783) [x] Severe Complexity: follow up within 7 calendar days (87417) Follow up Testing, Pending results or Referrals at Transitional Care Visit: [x] yes [] no Instructions to MA: Please call patient on day after discharge (must document patient contacted within 2 business days of discharge). Follow up questions for MA: 1. Did you get medications filled and taking them as instructed from discharge? 2. Are you following your discharge instructions from your hospital stay? 3. Please confirm patient is scheduled for a follow up appointment within the above time frame. Signed: THOMAS Castillo CNP Division of Hospitalist Medicine Acute [facility] 07/16/2024, 2:12 PM Cosigned by Shelli Luis MD at 07/16/2024 5:12 PM EST documented in this [facility]01-17-2025 History of Present illness Narrative* THOMAS Valencia CNP - 07/16/2024 8:12 AM EST Cardiology Progress Note Date of Consultation: 07/16/2024 Interval History: Mr. Medina is awake, laying in bed. Denies any chest pain, shortness of breath, orthopnea, edema. Lifevest is arranged after lunchtime today. He now brings to my attention that he has been having lowabdominal discomfort that has been on- going since May. Tele monitoring is without any further episodes of NSVT in the past 24 hours. Review of Systems: All other systems were reviewed and are negative other than as noted in the HPI Medications: apixaban, 5 mg, Oral, BID carvedilol, 25 mg, Oral, BID WC cholecalciferol, 4,000 Units, Oral, Daily sacubitril-valsartan, 1 tablet, Oral, BID sodium bicarbonate, 1,300 mg, Oral, BID spironolactone, 12.5 mg, Oral, Daily Physical Examination: BP 99/66 (BP Location: Right arm, Patient Position: Lying) Pulse 88 Temp 36.1 C (97 F) (Temporal) Resp 18 Ht 6' 1 (1.854 m) Wt 179 lb 10.8 oz (81.5 kg) SpO2 99% BMI 23.71 kg/m Intake/Output Summary (Last 24 hours) at 07/16/2024 0838 Last data filed at 07/15/20242128 Gross per 24 hour Intake 200 ml Output -- Net 200 ml Neck: No JVD Respiratory: Lungs are clear with no rales or wheezes. Respiratory effort is normal and symmetricalbilaterally; Good air movement bilaterally Heart: RRR no ectopy; Nl S1 and S2 no mcrg Extremities/Skin: trace to 1 + LE edema; Skin warm to touch and well perfused Laboratory Tests: Results from last 7 days Lab Units 07/15/24 0206 07/13/24 0252 07/12/24 0637 WBC AUTO 10*3/uL 5.5 6.6 8.2 HEMOGLOBIN g/dL 12.2* 12.9* 14.4 HEMATOCRIT % 37.7* 39.7* 45.6 MCV fL 104.1* 102.3* 105.1* PLATELETS 10*3/uL 242 232 246 Lab Results Component Value Date GLUCOSE 102 (H) 07/16/2024 CALCIUM 7.0 (L) 07/16/2024 NA 133 (L) 07/16/2024 K 4.8 07/16/2024 CO2 17 (L) 07/16/2024 CL 109 (H) 07/16/2024 BUN 27 (H) 07/16/2024 CREATININE 1.40 (H) 07/16/2024 Lab Results Component Value Date TSH 0.68 07/12/2024 Lab Results Component Value Date BNP 10,875 (H) 07/15/2024 Lab Results Component Value Date TROPONINI 0.037 (H) 05/28/2024 Impression and Plan: HFrEF: stage C, NICM/severe BiV failure/2+ FMR, perfused, admitted with volume overloaded. Volume status improved. -continue entresto 97/103mg bid -continue Coreg 25mg bid -will add spironolactone 12.5mg daily -no digoxin due to CKD -consider Farxiga as outpatient -as needed Lasix 20mg daily for weight gain of 4 lbs overnight. -he was informed to get lab work one day prior to his follow up office visit. (Order is in the system) -I have had long conversation with him yesterday regarding his BiV failure. I have discussed that he is the perfect candidate for ICD at this time. He is not wanting the ICD as of now. He tells me that I don't feel poorly. I did show him some of his normal rhythm strips and his abnormal rhythm strips from when he was having NSVT here in the hospital. I have educated him that he doesn't have to feel poorly to have cardiac as a result of VT. He is agreeable to bridge the gap until he makes an overall decision on an ICD to wear a lifevest at this time. I have discussed that he will have to wear the lifevest for 24hrs/ 7 days a week and only remove for a quick shower (mild temperature) with someone in the home while he showers as this could change his hemodynamic stability. Informed that the lifevest is an external device and only to be worn for a short period of time until he can be implanted with an ICD. I have also discussed with him that he needs to discuss the seriousness of his health with his close family members. He is aware that he risks sudden cardiac . -his lifevest was approved and will be fit this afternoon. -his discharge weight is 179 lbs. BNP admit 20K > 10,875 -vitals are stable -labs are stable -In regards to the Lifevest: he needs to wear 24/7 and only be out of it minimally for daily body care. Avoid heavy lifting/stress on the heart. Avoid loud environments so that he can hear the alarms. If he is getting alarms he needs to contact the office to check his electrolytes to make sure theyare stable and for us to likely try and maximize his beta jerome to try and suppress the extra beats/arrhythmia. -He works at [employer]. Advised to check into needing FMLA forms filled out. Also advised to see if he has any short-term disability forms that need to be filled out if he has that in his insurance package. He was advised that we do not carry/supply these forms but can be filled out. He was informed that he will be followed continually in the office and likely in 3-4 months we will see if his EF improves. HTN: controlled -monitor and titrate GDMT as able History of PE: apixaban home dose 5 mg bid Disposition: He is ok to discharge from a cardiology standpoint on his current inpatient medications. Would add Lasix 20mg prn for weight gain of 4 lbs overnight. Needs his lifevest before he goes home. Today, he is reporting some lower abdominal discomfort that has been on-going since May. Will defer to primary team. He has been having bowel movements while inpatient and +BS all 4 quads. Wewill sign off. Please call if further assistance is needed. Follow up with Morgan Ulloa CNP 07/23/2024 @ 2:30 THOMAS Valencia CNP * Lilibeth Anguianos, THOMAS Xiao CNP - 07/15/2024 9:35 AM EST Hospitalist Progress Note 07/15/2024 Subjective: Admit Date: 07/11/2024 PCP: No primary care provider on file. Room#: B2-254/B2-254 A BRIEF HOSPITAL COURSE: 44-year-old gentleman with past medical history of nonischemic cardiomyopathy, CKD, hypertension, hyperlipidemia who presented the emergency room with complaint of shortness of breath, abdominal pain, cough. Denied any nausea, vomiting or diarrhea. Patient has a known history of heart failure was recently discharged from [facility] after presenting with similar symptoms. The patient was initiallytreated in the emergency room for a non-STEMI ND secondary to elevated troponins and was placed on IV heparin. 07/12/24: Was seen by Cardiology and determined Trops were elevated 2/2 Acute exacerbation of HF. Heparin gtt stopped and HF treated 07/13/24:intermittent episodes of symptomatic (palpitations) ST resolved with IV Metoprolol 5 mg IV,Placed on low dose Coreg 07/14/24: symptomatic episode with dizziness recurrent episode of ST spontaneous conversion. Pt agreed to take his prescribed oral medication Discussed with Dr. Lima regarding last nights episode. Cardiology states he is having symptomatic VT and recommended transfer to [facility] for EP evaluation and ICD. Pt is reluctant to proceed and feelswe are rushing him. Pt brought up life vest and explained that would only be a temporary treatment.PT was made aware of his high risk for SCD. Interval History: No overnight issues. Patient has decided he will go home with a life vest. He refuses transfer to [facility] see EP for ICD placement. Cardiology has explained to him he is at great risk for sudden cardiac from arrhythmia. He verbalizes understanding. Case and plan discussed with patient and bedsidenurse. All questions answered. Adult diet Regular; Low Sodium (2 gm) 24HR INTAKE/OUTPUT: Intake/Output Summary (Last 24 hours) at 07/15/2024 0935 Last data filed at 07/14/2024 1230 Gross per 24 hour Intake 300 ml Output -- Net 300 ml Past Medical History: Past Medical History: Diagnosis Date CHF (congestive heart failure) (HCC) CKD (chronic kidney disease) Hypercholesteremia Hypertension LABS: CBC: Recent Labs 07/13/24 0252 07/15/24 0206 WBC 6.6 5.5 RBC 3.88* 3.62* HGB 12.9* 12.2* HCT 39.7* 37.7* MCV 102.3* 104.1* RDW 13.9 13.7 PLT 232 242 BMP: Recent Labs 07/13/2425107/14/24 0451 07/15/24 0206 NA 135* 137 134* K 4.1 4.2 4.5 CL 105 104 108* CO2 21* 23 22 BUN 35* 33* 30* CREATININE 1.90* 1.81* 1.54* GLUCOSE 126* 115* 108* CALCIUM 8.1* 8.3* 6.9* ANIONGAP 9 10 4 LIVER PROFILE: Recent Labs 07/14/24450 AST 50* ALT 109* BILITOT 1.3* ALKPHOS 229* PROT 6.4 PT/INR: No results for input(s): PROTIME, INR in the last 72 hours. CARDIAC ENZYMES: No results for input(s): TROPONINI in the last 72 hours. Procalcitonin: No results found for: PROCAL COVID-19 PCR: No results for input(s): COVID19 in the last 72 hours. Objective: Vitals: BP 112/77 (BP Location: Right arm, Patient Position: Sitting) Pulse 53 Temp 36.1 C (96.9 F) (Temporal) Resp 18 Ht 6' 1 (1.854 m) Wt 179 lb 9.6 oz (81.5 kg) SpO2 96% BMI 23.70 kg/m Pulse Ox: SpO2 Av % Min: 94 % Max: 99 % Supplemental O2: Physical Exam Vitals and nursing note reviewed. Constitutional: Appearance: Normal appearance. HENT: Head: Normocephalic and atraumatic. Nose: Nose normal. Mouth/Throat: Mouth: Mucous membranes are moist. Eyes: Extraocular Movements: Extraocular movements intact. Conjunctiva/sclera: Conjunctivae normal. Pupils: Pupils are equal, round, and reactive to light. Cardiovascular: Rate and Rhythm: Normal rate and regular rhythm. Pulmonary: Effort: Pulmonary effort is normal. Breath sounds: Normal breath sounds. Abdominal: General: Bowel sounds are normal. Palpations: Abdomen is soft. Musculoskeletal: General: Normal range of motion. Cervical back: Normal range of motion. Skin: General: Skin is warm and dry. Neurological: General: No focal deficit present. Mental Status: He is alert and oriented to person, place, and time. Psychiatric: Mood and Affect: Mood normal. Behavior: Behavior normal. Thought Content: Thought content normal. Medications: Scheduled PRN apixaban, 5 mg, Oral, BID carvedilol, 6.25 mg, Oral, BID WC cholecalciferol, 4,000 Units, Oral, Daily magnesium sulfate, 2,000 mg, IntraVENous, Once sacubitril-valsartan, 1 tablet, Oral, BID sodium bicarbonate, 1,300 mg, Oral, BID PRN medications: acetaminophen OR acetaminophen, ondansetron ODT OR ondansetron, polyethylene glycol (PEG) 3350 Continuous Assessment Data: (CAT1) Reviewed 3 or more notes from different specialty or health system (each=1). (CAT1) Reviewed 3 or more labs/studies ordered by another provider not previously counted (each=1, panels count as 1). (CAT1) Ordered 2 new labs and/or studies (each=1, panels count as 1). (LOW: 2x CAT1 or independent historian MOD: 3x CAT1 or 1x CAT3 EXTENSIVE: 3x CAT1 and 1x CAT3) Acute, acute on chronic, unstable/uncontrolled chronic problems/diagnoses: Dilated nonischemic cardiomyopathy HFrEF- EF 20% Coreg, cardiology increasing as tolerated , PRN lasix , cardiology adjusting Entresto Ventricular tachycardia - symptomatic with sustained BT, cardiology recommnending transfer to [facility] but patient refusing Elevated troponin - Type ll 2/2 stress from acute heart failure Transaminitis- chronic Stable chronic problems affecting care, new non-acute diagnoses: CKD lllb HTN Hx DVT- apixaban 5 mg BID HPL Plan As a result of the above findings & factors, the following mgmt was pursued: - cardiology titrating Entresto to BP, patient was symptomatic with VT but refuses to be transferred to [facility] - am labs, replace lytes prn - PT/OT/CM/SW - delirium precautions: increase activity and limit nighttime disturbances - DVT prophylaxis: encourage ambulation and already anticoagulated Complexity: Acute illness with systemic symptoms (MOD). Risk: Prescription drug/IVF/colloid was initiated, discontinued, adjusted; or reviewed with decision to maintain current orders (MOD). Low risk diagnostic testing or treatment (LOW). Advance Directive: Full Code Anticipated Discharge - Date - 07/16? - Location - Home - Pending the following - clearance from cardiology Total time spent (which include face to face and non face to face encounters) : minutes Toxic drug monitoring/narrow therapeutic index drug monitoring : # Drug name : # Route administered : # Method of monitoring : Extended Emergency Contact Information Primary Emergency Contact: Indira Medina Mobile Relation: Sister Secondary Emergency Contact: Kaitlin Hicks Mobile Relation: Significant Other THOMAS Castillo CNP Division of Hospitalist Medicine [facility] * THOMAS Valencia CNP - 07/15/2024 9:34 AM EST Cardiology Progress Note Date of Consultation: 07/15/2024 Interval History: Mr. Medina is up walking around in his room without any complaints. He reports that he is not readyto go home yet today. No specific complaints, I just feel not right. Review of Systems: All other systems were reviewed and are negative other than as noted in the HPI Medications: apixaban, 5 mg, Oral, BID carvedilol, 6.25 mg, Oral, BID WC cholecalciferol, 4,000 Units, Oral, Daily magnesium sulfate, 2,000 mg, IntraVENous, Once sacubitril-valsartan, 1 tablet, Oral, BID sodium bicarbonate, 1,300 mg, Oral, BID Physical Examination: BP 112/77 (BP Location: Right arm, Patient Position: Sitting) Pulse 53 Temp 36.1 C (96.9 F) (Temporal) Resp 18 Ht 6' 1 (1.854 m) Wt 179 lb 9.6 oz (81.5 kg) SpO2 96% BMI 23.70 kg/m Intake/Output Summary (Last 24 hours) at 07/15/2024 0952 Last data filed at 07/14/2024 1230 Gross per 24 hour Intake 300 ml Output -- Net 300 ml Neck: No JVD Respiratory: Lungs are clear with no rales or wheezes. Respiratory effort is normal and symmetricalbilaterally; Good air movement bilaterally Heart: RRR no ectopy; Nl S1 and S2 no mcrg Extremities/Skin: trace to 1 + LE edema; Skin warm to touch and well perfused Laboratory Tests: Results from last 7 days Lab Units 07/15/24 0206 07/13/24 0252 07/12/24 0637 WBC AUTO 10*3/uL 5.5 6.6 8.2 HEMOGLOBIN g/dL 12.2* 12.9* 14.4 HEMATOCRIT % 37.7* 39.7* 45.6 MCV fL 104.1* 102.3* 105.1* PLATELETS 10*3/uL 242 232 246 Lab Results Component Value Date GLUCOSE 108 (H) 07/15/2024 CALCIUM 6.9 (L) 07/15/2024 NA 134 (L) 07/15/2024 K 4.5 07/15/2024 CO2 22 07/15/2024 CL 108 (H) 07/15/2024 BUN 30 (H) 07/15/2024 CREATININE 1.54 (H) 07/15/2024 Lab Results Component Value Date TSH 0.68 07/12/2024 Lab Results Component Value Date BNP 10,875 (H) 07/15/2024 Lab Results Component Value Date TROPONINI 0.037 (H) 05/28/2024 Impression and Plan: HFrEF: stage C, NICM/severe BiV failure/2+ FMR, perfused, admitted with volume overloaded. Volume status improved. -continue entresto (maximizing dosing today) if he tolerates the increase in entresto this am and will then try to increase the Coreg later today. -no digoxin due to CKD -PRN lasix for volume control, hold off today while adjusting entresto -hold off MRA given CKD, we will consider if renal function remain stable after entresto -not on SGLT2 at this time, underlying significant renal dysfunction -renal function improved with increase of Entresto and holding diuretic yesterday. -I have had long conversation with his regarding BiV failure. I have discussed that he is the perfect candidate for ICD at this time. He is not wanting the ICD as of now. He tells me that I don't feel poorly. I have shown him his normal rhythm strips and his abnormal rhythm strips from last pm (19 beat of NSVT). I have educated him that he doesn't have to feel poorly to have cardiac as a result of VT. He is agreeable to bridge the gap until he makes an overall decision on an ICD to weara lifevest at this time. I have discussed that he will have to wear the lifevest for 24hrs/ 7 days a week and only remove for a quick shower (mild temperature) with someone in the home while he showers as this could change his hemodynamic stability. Informed that the lifevest is an external device and only to be worn for a short period of time until he can be implanted with an ICD. I have also discussed with him that he needs to discuss the seriousness of his health with his close family members. He is aware that he risks sudden cardiac . In regards to the Lifevest: We will see if we can get this approved with his insurance. As above heneeds to wear 24/7 and only be out of it minimally for daily body care. Avoid heavy lifting/stress on the heart. Avoid loud environments so that he can hear the alarms. If he is getting alarms he needs to contact the office to check his electrolytes to make sure they are stable and for us to likelytry and maximize his beta jerome to try and suppress the extra beats/arrhythmia. HTN: controlled -monitor and titrate GDMT as able History of PE: apixaban home dose 5 mg bid Disposition: Will likely discharge home tomorrow if he tolerated medication changes and after he gets the intended lifevest applied. Likely will go home on as needed lasix 20mg for weight gain. Follow up with Morgan Ulloa CNP 07/23/2024 @ 2:30 Luma Joy APRN - VIKKI, FACC, FASE * Shannan Lima MD - 07/14/2024 10:05 AM EST Cardiology Progress Note Date of Consultation: 07/14/2024 Interval History: Mr. Medina states that he is feeling ok. No complaints. Overnight he had tachyarrhythmias, on telemetry review he had sustained atrial tachycardia for ~10-15 minutes and sustained VT which lasted for4-5 minutes as well as another episode of NSVT. He felt dizzy with those episodes and he was standing/washing his hands at that time. He was given IV metoprolol. Renal function and BP tolerated medium dose entresto and this morning we are starting low dose carvedilol. Review of Systems: All other systems were reviewed and are negative other than as noted in the HPI Medications: apixaban, 5 mg, Oral, BID carvedilol, 3.125 mg, Oral, BID WC cholecalciferol, 4,000 Units, Oral, Daily sacubitril-valsartan, 1 tablet, Oral, BID sodium bicarbonate, 1,300 mg, Oral, BID Physical Examination: BP 103/73 (BP Location: Right arm) Pulse 94 Temp 36.3 C (97.3 F) (Temporal) Resp 20 Ht 6' 1 (1.854 m) Wt 179 lb 9.6 oz (81.5 kg) SpO2 100% BMI 23.70 kg/m Intake/Output Summary (Last 24 hours) at 07/14/2024 1005 Last data filed at 07/14/2024 0407 Gross per 24 hour Intake 300 ml Output -- Net 300 ml Neck: No JVD Respiratory: Lungs are clear with no rales or wheezes. Respiratory effort is normal and symmetricalbilaterally; Good air movement bilaterally Heart: RRR no ectopy; Nl S1 and S2, precordial systolic murmur Extremities/Skin: 1+ LE edema; Skin warm to touch and well perfused Laboratory Tests: Results from last 7 days Lab Units 07/13/24 0252 07/12/24 0637 07/11/242024 WBC AUTO 10*3/uL 6.6 8.2 8.4 HEMOGLOBIN g/dL 12.9* 14.4 15.5 HEMATOCRIT % 39.7* 45.6 48.4 MCV fL 102.3* 105.1* 102.8* PLATELETS 10*3/uL 232 246 270 Lab Results Component Value Date GLUCOSE 115 (H) 07/14/2024 CALCIUM 8.3 (L) 07/14/2024 NA 137 07/14/2024 K 4.2 07/14/2024 CO2 23 07/14/2024 CL 104 07/14/2024 BUN 33 (H) 07/14/2024 CREATININE 1.81 (H) 07/14/2024 Lab Results Component Value Date TSH 0.68 07/12/2024 Lab Results Component Value Date BNP 14,470 (H) 07/13/2024 Lab Results Component Value Date TROPONINI 0.037 (H) 05/28/2024 Impression and Plan: HFrEF: stage C, NICM/severe BiV failure/2+ FMR, perfused, nearly euvolemic. -continue entresto 49-51 mg bid -start carvedilol 3.125 mg bid -no digoxin due to CKD -PRN lasix for volume control, hold off today while adjusting entresto -hold off MRA given CKD, we will consider if renal function remain stable after entresto -not on SGLT2 at this time, underlying significant renal dysfunction VT: sustained, symptomatic. Underlying NICM/BiV failure. K >4 and Mg is 2. -I recommend transfer to [facility] for ICD evaluation. I discussed/reviewed telemetry rhythm with EP colleague and we agree with further evaluation/ICD consideration. I explained and discussed findings andrecommendation with Mr. Medina at length. He informed me that he favors not to go to [facility] and he is reluctant about a defibrillator. But he will think about it and let me know today. If he agrees, we will facilitate transfer for EP evaluation. -I encourage and recommend compliance with medical therapy and follow up which are important for advanced therapy/devices candidacy as indicated. -start carvedilol 3.125 mg bid and titrate as able -keep K>4 and Mg >2 HTN: controlled -monitor and titrate GDMT as able History of PE: resume apixaban home dose 5 mg bid I communicated my findings and plan to the primary team. Shannan Lima MD, FACC, FASE * Kelly Carey APRN - WHITING MACHINE OPERATOR - 07/14/2024 9:11 AM EST Hospitalist Progress Note 07/14/2024 Subjective: Admit Date: 07/11/2024 PCP: No primary care provider on file. Room#: B2-254/B2-254 A Brief Hospital course: 44-year-old gentleman with past medical history of nonischemic cardiomyopathy, CKD, hypertension, hyperlipidemia who presented the emergency room with complaint of shortness of breath, abdominal pain, cough. Denied any nausea, vomiting or diarrhea. Patient has a known history of heart failure was recently discharged from [facility] after presenting with similar symptoms. The patient was initiallytreated in the emergency room for a non-STEMI ND secondary to elevated troponins and was placed on IV heparin. 07/12/24: Was seen by Cardiology and determined Trops were elevated 2/2 Acute exacerbation of HF. Heparin gtt stopped and HF treated 07/13/24:intermittent episodes of symptomatic (palpitations) ST resolved with IV Metoprolol 5 mg IV,Placed on low dose Coreg 07/14/24: symptomatic episode with dizziness recurrent episode of ST spontaneous conversion. Pt agreed to take his prescribed oral medication Discussed with Dr. Lima regarding last nights episode. Cardiology states he is having symptomatic VT and recommended transfer to [facility] for EP evaluation and ICD. Pt is reluctant to proceed and feelswe are rushing him. Pt brought up life vest and explained that would only be a temporary treatment.PT was made aware of his high risk for SCD. Interval History: No overnight issues. Denies any CP, SOB, palpitations. Discussed need for ICD. Remains recalcitrant. Case and plan discussed with patient and bedside nurse. All questions answered. Offered to call and speak to family regarding need but declined offer Adult diet Regular; Low Sodium (2 gm) 24HR INTAKE/OUTPUT: Intake/Output Summary (Last 24 hours) at 07/14/2024 0911 Last data filed at 07/14/2024 0407 Gross per 24 hour Intake 300 ml Output -- Net 300 ml Past Medical History: Past Medical History: Diagnosis Date CHF (congestive heart failure) (HCC) CKD (chronic kidney disease) Hypercholesteremia Hypertension LABS: CBC: Recent Labs 07/11/24202407/12/2437 07/13/24 025 WBC 8.4 8.2 6.6 RBC 4.71 4.34* 3.88* HGB 15.5 14.4 12.9* HCT 48.4 45.6 39.7* MCV 102.8* 105.1* 102.3* RDW 14.0 14.3 13.9 PLT 270 246 232 BMP: Recent Labs 07/12/2463607/13/24 0252 07/14/24 0451 NA 139 135* 137 K 4.5 4.1 4.2 CL 107 105 104 CO2 20* 21* 23 BUN 31* 35* 33* CREATININE 1.79* 1.90* 1.81* GLUCOSE 104* 126* 115* CALCIUM 8.6 8.1* 8.3* ANIONGAP 12 9 10 LIVER PROFILE: Recent Labs 07/11/24202407/12/2437 07/14/24 0451 AST 75* 63* 50* ALT 134* 127* 109* BILITOT 2.2* 2.0* 1.3* ALKPHOS 213* 181* 229* PROT 6.4 6.0* 6.4 Component Latest Ref Rng 07/12/2024 07/13/2024 07/14/2024 MAGNESIUM 1.6 - 2.6 mg/dL 2.1 2.0 2.0 MAGNESIUM 2.2 PT/INR: No results for input(s): PROTIME, INR in the last 72 hours. CARDIAC ENZYMES: No results for input(s): TROPONINI in the last 72 hours. Procalcitonin: No results found for: PROCAL COVID-19 PCR: No results for input(s): COVID19 in the last 72 hours. Objective: Vitals: BP 103/73 (BP Location: Right arm) Pulse 94 Temp 36.3 C (97.3 F) (Temporal) Resp 20 Ht 6' 1 (1.854 m) Wt 179 lb 9.6 oz (81.5 kg) SpO2 100% BMI 23.70 kg/m Pulse Ox: SpO2 Av.5 % Min: 96 % Max: 100 % Supplemental O2: Physical Exam Constitutional: General: He is not in acute distress. Appearance: He is not ill-appearing or toxic-appearing. Cardiovascular: Rate and Rhythm: Normal rate and regular rhythm. Heart sounds: Normal heart sounds. Pulmonary: Breath sounds: Normal breath sounds. Abdominal: General: Bowel sounds are normal. Palpations: Abdomen is soft. Musculoskeletal: General: No swelling. Normal range of motion. Skin: General: Skin is warm and dry. Neurological: General: No focal deficit present. Mental Status: He is alert and oriented to person, place, and time. Psychiatric: Mood and Affect: Mood normal. Behavior: Behavior normal. Cognition and Memory: Cognition normal. Judgment: Judgment is inappropriate. Medications: Scheduled PRN apixaban, 5 mg, Oral, BID carvedilol, 3.125 mg, Oral, BID WC cholecalciferol, 4,000 Units, Oral, Daily sacubitril-valsartan, 1 tablet, Oral, BID sodium bicarbonate, 1,300 mg, Oral, BID PRN medications: acetaminophen OR acetaminophen, ondansetron ODT OR ondansetron, polyethylene glycol (PEG) 3350 Continuous Assessment Data: (CAT1) Reviewed 3 or more notes from different specialty or health system (each=1). (CAT1) Reviewed 2 labs/studies ordered by another provider not previously counted (each=1, panels count as 1). (CAT1) Reviewed 1 labs/studies previously ordered by me not previously counted (each=1, panels count as 1). (CAT1) Ordered 2 new labs and/or studies (each=1, panels count as 1). Acute, acute on chronic, unstable/uncontrolled chronic problems/diagnoses: Dilated nonischemic cardiomyopathy HFrEF (EF 20%) with acute on chronic HF Ventricular tachycardia: Continue Coreg and uptitrate as able and tolerated, prn IV metoprolol. Maintain K >/= 4.0 and Mag >/= 2.0. Maintain strict Tele management Elevated troponin: Type II secondary to stress-induced from heart failure Transaminitis: unchanged Stable chronic problems affecting care, new non-acute diagnoses: Chronic kidney disease stage IIIb Hypertension History of DVT: Resume apixaban 5 mg twice daily Hyperlipidemia Plan As a result of the above findings & factors, the following mgmt was pursued: -Maintain telemetry -Per cardiology switched from losartan to low-dose Entresto. Patient had a poor outcome with hydralazine and will not be used. Continue to hold giving Lasix and resume prn, continue carvedilol -Per cardiology they discussed with the patient transferring to [facility] for advanced heart failure reevaluation and EP consult for ICD, but patient does not wish to be transferred at this time. Benefits,risks were discussed by Cardiology and - am labs, replace lytes prn - PT/OT/CM/SW - delirium precautions: increase activity, limit nighttime disturbances, and avoid anticholinergic meds, benzos, etc - DVT prophylaxis: encourage ambulation and already anticoagulated Complexity: Chronic illness with severe exacerbation, progression, or side effect of tx (HIGH). Multiple stable chronic illnesses (MOD). Risk: Admission to hospital-level care was considered or occurred (HIGH). Prescription drug/IVF/colloid was initiated, discontinued, adjusted; or reviewed with decision to maintain current orders (MOD). Care and management is being impacted by the following SDOH: low education/difficulty understandingmedical issues (MOD). Advance Directive: Full Code Anticipated Discharge - Date - 07/15/24 - Location - Home - Pending the following - Clinical improvement Total time spent (which include face to face and non face to face encounters) : minutes Toxic drug monitoring/narrow therapeutic index drug monitoring : # Drug name : # Route administered : # Method of monitoring : Extended Emergency Contact Information Primary Emergency Contact: Indira Medina Mobile Relation: Sister Secondary Emergency Contact: uKrtKaitlin Mobile Relation: Significant Other THOMAS Edward CNP Division of Hospitalist Medicine Acute care [facility] Comment: Please note this report has been produced using speech recognition software and may contain errors related to that system including errors in grammar, punctuation, and spelling, as well as words and phrases that may be inappropriate. If there is any questions or concerns please feel free to contact the dictating provider for clarification * THOMAS Cruz CNP - 07/13/2024 1:59 PM EST Hospitalist Progress Note 07/13/2024 Subjective: Admit Date: 07/11/2024 PCP: No primary care provider on file. Room#: B2-254/B2-254 A Brief Hospital course: 44-year-old gentleman with past medical history of nonischemic cardiomyopathy, CKD, hypertension, hyperlipidemia who presented the emergency room with complaint of shortness of breath, abdominal pain, cough. Denied any nausea, vomiting or diarrhea. Patient has a known history of heart failure was recently discharged from [facility] after presenting with similar symptoms. The patient was initiallytreated in the emergency room for a non-STEMI ND secondary to elevated troponins and was placed on IV heparin. 07/12/24: Was seen by Cardiology and determined Trops were elevated 2/2 Acute exacerbation of HF. Heparin gtt stopped and HF treated Interval History: No overnight issues. States feeling better, tolerated dose of Entresto. Case and plan discussed with patient and bedside nurse. All questions answered. Adult diet Regular; Low Sodium (2 gm) 24HR INTAKE/OUTPUT: Intake/Output Summary (Last 24 hours) at 07/13/2024 1359 Last data filed at 07/12/2024 2230 Gross per 24 hour Intake 733.41 ml Output -- Net 733.41 ml Past Medical History: Past Medical History: Diagnosis Date CHF (congestive heart failure) (HCC) CKD (chronic kidney disease) Hypercholesteremia Hypertension LABS: CBC: Recent Labs 07/11/24202407/12/24 0637 07/13/24 0252 WBC 8.4 8.2 6.6 RBC 4.71 4.34* 3.88* HGB 15.5 14.4 12.9* HCT 48.4 45.6 39.7* MCV 102.8* 105.1* 102.3* RDW 14.0 14.3 13.9 PLT 270 246 232 BMP: Recent Labs 07/12/24 0516 07/12/24 0637 07/13/24 0252 NA 141 139 135* K 4.5 4.5 4.1 CL 108* 107 105 CO2 22 20* 21* BUN 31* 31* 35* CREATININE 1.90* 1.79* 1.90* GLUCOSE 124* 104* 126* CALCIUM 8.7 8.6 8.1* ANIONGAP 11 12 9 LIVER PROFILE: Recent Labs 07/11/24202407/12/24 0637 AST 75* 63* ALT 134* 127* BILITOT 2.2* 2.0* ALKPHOS 213* 181* PROT 6.4 6.0* PT/INR: No results for input(s): PROTIME, INR in the last 72 hours. CARDIAC ENZYMES: No results for input(s): TROPONINI in the last 72 hours. Procalcitonin: No results found for: PROCAL COVID-19 PCR: No results for input(s): COVID19 in the last 72 hours. Objective: Vitals: BP 127/87 Pulse 56 Temp 37.1 C (98.7 F) (Temporal) Resp 16 Ht 6' 1 (1.854 m) Wt 176 lb 12.8 oz (80.2 kg) SpO2 96% BMI 23.33 kg/m Pulse Ox: SpO2 Av.2 % Min: 94 % Max: 100 % Supplemental O2: Physical Exam Constitutional: Appearance: Normal appearance. Cardiovascular: Rate and Rhythm: Normal rate and regular rhythm. Heart sounds: Normal heart sounds. Pulmonary: Breath sounds: Normal breath sounds. Abdominal: General: Bowel sounds are normal. Palpations: Abdomen is soft. Musculoskeletal: General: Swelling (2+ BLE) present. No tenderness. Normal range of motion. Skin: General: Skin is warm and dry. Neurological: General: No focal deficit present. Mental Status: He is alert and oriented to person, place, and time. Psychiatric: Attention and Perception: He is inattentive. Mood and Affect: Affect is flat. Speech: Speech normal. Behavior: Behavior is withdrawn. Behavior is cooperative. Medications: Scheduled PRN apixaban, 5 mg, Oral, BID cholecalciferol, 4,000 Units, Oral, Daily sacubitril-valsartan, 1 tablet, Oral, BID sodium bicarbonate, 1,300 mg, Oral, BID PRN medications: acetaminophen OR acetaminophen, ondansetron ODT OR ondansetron, polyethylene glycol (PEG) 3350 Continuous Assessment Data: (CAT1) Reviewed 3 or more notes from different specialty or health system (each=1). (CAT1) Reviewed 3 or more labs/studies ordered by another provider not previously counted (each=1, panels count as 1). (CAT1) Reviewed 2 labs/studies previously ordered by me not previously counted (each=1, panels count as 1). (CAT1) Ordered 2 new labs and/or studies (each=1, panels count as 1). Acute, acute on chronic, unstable/uncontrolled chronic problems/diagnoses: Dilated nonischemic cardiomyopathy HFrEF (EF 20%) with acute on chronic HF Elevated troponin: Type II secondary to stress-induced from heart failure Transaminitis Stable chronic problems affecting care, new non-acute diagnoses: Chronic kidney disease stage IIIb Hypertension History of DVT: Resume apixaban 5 mg twice daily Hyperlipidemia Plan As a result of the above findings & factors, the following mgmt was pursued: -Maintain telemetry -Per cardiology switched from losartan to low-dose Entresto. Patient had a poor outcome with hydralazine and will not be used. Cardiology would like to hold off giving Lasix today and resume prn and reinitiate carvedilol when stable and euvolemic -Per cardiology they discussed with the patient transferring to [facility] for advanced heart failure reevaluation but patient does not wish to be transferred at this time. - am labs, replace lytes prn - PT/OT/CM/SW - delirium precautions: increase activity, limit nighttime disturbances, and avoid anticholinergic meds, benzos, etc - DVT prophylaxis: encourage ambulation and already anticoagulated Complexity: Chronic illness with severe exacerbation, progression, or side effect of tx (HIGH). Multiple stable chronic illnesses (MOD). Risk: Prescription drug/IVF/colloid was initiated, discontinued, adjusted; or reviewed with decision to maintain current orders (MOD). Low risk diagnostic testing or treatment (LOW). Advance Directive: Full Code Anticipated Discharge - Date - 07/14/24 - Location - Home - Pending the following - Continued clinical improvement Total time spent (which include face to face and non face to face encounters) : minutes Toxic drug monitoring/narrow therapeutic index drug monitoring : # Drug name : # Route administered : # Method of monitoring : Extended Emergency Contact Information Primary Emergency Contact: Indira Medina Mobile Relation: Sister Secondary Emergency Contact: Kaitlin Hicks Mobile Relation: Significant Other Kelly Carey APRN - VIKKI Division of Hospitalist Medicine [facility] Comment: Please note this report has been produced using speech recognition software and may contain errors related to that system including errors in grammar, punctuation, and spelling, as well as words and phrases that may be inappropriate. If there is any questions or concerns please feel free to contact the dictating provider for clarification * Shannan Lima MD - 07/13/2024 10:24 AM EST Cardiology Progress Note Date of Consultation: 07/13/2024 Interval History: Mr. Medina states that he is feeling better. No new complaints, SOB is less, no dizziness. First dose entresto was given this morning, he is ambulating. Sinus tachycardia on telemetry no arrhythmia. GFR ~43-46, K 4.1. Review of Systems: All other systems were reviewed and are negative other than as noted in the HPI Medications: apixaban, 5 mg, Oral, BID cholecalciferol, 4,000 Units, Oral, Daily sacubitril-valsartan, 1 tablet, Oral, BID sodium bicarbonate, 1,300 mg, Oral, BID Physical Examination: BP 126/90 Pulse 107 Temp 36.4 C (97.5 F) (Temporal) Resp 16 Ht 6' 1 (1.854 m) Wt 176 lb 12.8 oz (80.2 kg) SpO2 100% BMI 23.33 kg/m Intake/Output Summary (Last 24 hours) at 07/13/2024 1024 Last data filed at 07/12/2024 2230 Gross per 24 hour Intake 733.41 ml Output -- Net 733.41 ml Neck: No JVD Respiratory: Lungs are clear with no rales or wheezes. Respiratory effort is normal and symmetricalbilaterally; Good air movement bilaterally Heart: RRR no ectopy; Nl S1 and S2 no mcrg Extremities/Skin: 1+ LE edema; Skin warm to touch and well perfused Laboratory Tests: Results from last 7 days Lab Units 07/13/24 0252 07/12/24 0637 07/11/242024 WBC AUTO 10*3/uL 6.6 8.2 8.4 HEMOGLOBIN g/dL 12.9* 14.4 15.5 HEMATOCRIT % 39.7* 45.6 48.4 MCV fL 102.3* 105.1* 102.8* PLATELETS 10*3/uL 232 246 270 Lab Results Component Value Date GLUCOSE 126 (H) 07/13/2024 CALCIUM 8.1 (L) 07/13/2024 NA 135 (L) 07/13/2024 K 4.1 07/13/2024 CO2 21 (L) 07/13/2024 CL 105 07/13/2024 BUN 35 (H) 07/13/2024 CREATININE 1.90 (H) 07/13/2024 Lab Results Component Value Date TSH 0.68 07/12/2024 Lab Results Component Value Date BNP 14,470 (H) 07/13/2024 Lab Results Component Value Date TROPONINI 0.037 (H) 05/28/2024 Impression and Plan: HFrEF: stage C, NICM/severe BiV failure/2+ FMR, perfused, volume overloaded. -continue entresto 24-26 mg bid, depending on afternoon BP reading, will consider increase to medium dose this evening -will start carvedilol when more stable/euvolemic and when output is more optimized by entresto -no digoxin due to CKD -PRN lasix for volume control, hold off today while adjusting entresto -hold off MRA given CKD, we will consider if renal function remain stable after entresto -not on SGLT2 at this time, underlying significant renal dysfunction HTN: controlled -monitor and titrate GDMT as able History of PE: resume apixaban home dose 5 mg bid He will need additional 1-2 days in the hospital for careful adjust meds to reach stable dose, he needs renal function monitoring due to CKD which complicated HF treatment. He is at increased risk for readmission and he was readdmitted soon after discharge due to advanced heart failure. Shannan Lima MD, FACC, FASE * Michelle Werner - 07/13/2024 9:02 AM EST Nutrition rescreen completed. Chart reviewed. Patient to be monitored and followed by the diet industrial engineering technician. * Kelly Nya Cherry, CURRICULUM DIRECTOR - WHITING MACHINE OPERATOR - 07/12/2024 2:12 PM EST Hospitalist Progress Note 07/12/2024 Subjective: Admit Date: 07/11/2024 PCP: No primary care provider on file. Room#: Brief Hospital course: 44-year-old gentleman with past medical history of nonischemic cardiomyopathy, CKD, hypertension, hyperlipidemia who presented the emergency room with complaint of shortness of breath, abdominal pain, cough. Denied any nausea, vomiting or diarrhea. Patient has a known history of heart failure was recently discharged from [facility] after presenting with similar symptoms. The patient was initiallytreated in the emergency room for a non-STEMI ND secondary to elevated troponins and was placed on IV heparin. Interval History: Cardiology saw the patient in the emergency room and stop the heparin. The patient was not deemed anon-STEMI and felt the elevated troponins were due to stress-induced from his heart failure. Overall the patient states he feels somewhat better. He was informed that cardiology wanted him to restartlow-dose Entresto. The patient was concerned stating it this often makes him sick. Case and plan discussed with patient and bedside nurse. All questions answered. Adult diet Regular; Low Sodium (2 gm) 24HR INTAKE/OUTPUT: Intake/Output Summary (Last 24 hours) at 07/12/2024 1412 Last data filed at 07/12/2024 0515 Gross per 24 hour Intake -- Output 2350 ml Net -2350 ml Past Medical History: Past Medical History: Diagnosis Date CHF (congestive heart failure) (HCC) CKD (chronic kidney disease) Hypercholesteremia Hypertension LABS: CBC: Recent Labs 07/11/24202407/12/24 0637 WBC 8.4 8.2 RBC 4.71 4.34* HGB 15.5 14.4 HCT 48.4 45.6 MCV 102.8* 105.1* RDW 14.0 14.3 PLT 270 246 BMP: Recent Labs 07/11/24202407/12/24 0516 07/12/24 0637 NA 141 141 139 K 4.6 4.5 4.5 CL 106 108* 107 CO2 20* 22 20* BUN 30* 31* 31* CREATININE 1.70* 1.90* 1.79* GLUCOSE 97 124* 104* CALCIUM 8.8 8.7 8.6 ANIONGAP 15* 11 12 LIVER PROFILE: Recent Labs 07/11/24202407/12/24 0637 AST 75* 63* ALT 134* 127* BILITOT 2.2* 2.0* ALKPHOS 213* 181* PROT 6.4 6.0* PT/INR: No results for input(s): PROTIME, INR in the last 72 hours. CARDIAC ENZYMES: No results for input(s): TROPONINI in the last 72 hours. Procalcitonin: No results found for: PROCAL COVID-19 PCR: No results for input(s): COVID19 in the last 72 hours. Objective: Vitals: BP 113/77 (BP Location: Right arm, Patient Position: Lying) Pulse 99 Temp (!) 35.9 C (96.6 F) (Temporal) Resp 15 Ht 6' 1 (1.854 m) Wt 170 lb (77.1 kg) SpO2 100% BMI 22.43 kg/m Pulse Ox: SpO2 Av.6 % Min: 94 % Max: 100 % Supplemental O2: Physical Exam Constitutional: General: He is not in acute distress. Appearance: Normal appearance. He is not ill-appearing. Cardiovascular: Rate and Rhythm: Normal rate and regular rhythm. Pulmonary: Breath sounds: Normal breath sounds. Abdominal: General: Bowel sounds are normal. Palpations: Abdomen is soft. Musculoskeletal: General: Swelling (2+ pitting bilateral lower extremities) present. Skin: General: Skin is warm and dry. Neurological: General: No focal deficit present. Mental Status: He is alert and oriented to person, place, and time. Psychiatric: Mood and Affect: Affect is flat. Behavior: Behavior normal. Comments: Patient asked somewhat aloof Medications: Scheduled PRN apixaban, 5 mg, Oral, BID cholecalciferol, 4,000 Units, Oral, Daily [START ON 07/13/2024] sacubitril-valsartan, 1 tablet, Oral, BID sodium bicarbonate, 1,300 mg, Oral, BID PRN medications: acetaminophen OR acetaminophen, ondansetron ODT OR ondansetron, polyethylene glycol (PEG) 3350 Continuous Assessment Data: (CAT1) Reviewed 3 or more notes from different specialty or health system (each=1). (CAT1) Reviewed 2 labs/studies ordered by another provider not previously counted (each=1, panels count as 1). (CAT1) Ordered 2 new labs and/or studies (each=1, panels count as 1). Acute, acute on chronic, unstable/uncontrolled chronic problems/diagnoses: Dilated nonischemic cardiomyopathy HFrEF (EF 20%) with acute on chronic HF Elevated troponin: Type II secondary to stress-induced from heart failure Transaminitis Stable chronic problems affecting care, new non-acute diagnoses: Chronic kidney disease stage IIIb Hypertension History of DVT: Resume apixaban 5 mg twice daily Hyperlipidemia Plan As a result of the above findings & factors, the following mgmt was pursued: -Maintain telemetry -Per cardiology will switch from losartan to low-dose Entresto. Patient had a poor outcome with hydralazine which will not be used. Cardiology would like to hold off giving Lasix today and resume tomorrow and reinitiate carvedilol when stable and euvolemic -Per cardiology they discussed with the patient transferring to [facility] for advanced heart failure reevaluation but patient does not wish to be transferred at this time. - am labs, replace lytes prn - PT/OT/CM/SW - delirium precautions: increase activity, limit nighttime disturbances, and avoid anticholinergic meds, benzos, etc - DVT prophylaxis: encourage ambulation and already anticoagulated Complexity: Chronic illness with severe exacerbation, progression, or side effect of tx (HIGH). Multiple stable chronic illnesses (MOD). Risk: Admission to hospital-level care was considered or occurred (HIGH). Prescription drug/IVF/colloid was initiated, discontinued, adjusted; or reviewed with decision to maintain current orders (MOD). Low risk diagnostic testing or treatment (LOW). Advance Directive: Full Code Anticipated Discharge - Date - 07/13/24 - Location - Home - Pending the following - Clinical improvement Total time spent (which include face to face and non face to face encounters) : minutes Toxic drug monitoring/narrow therapeutic index drug monitoring : # Drug name : Entresto # Route administered : oral # Method of monitoring : tolerance Extended Emergency Contact Information Primary Emergency Contact: Indira Medina Mobile Relation: Sister Secondary Emergency Contact: Kaitlin Hicks Mobile Relation: Significant Other THOMAS Edward CNP Division of Hospitalist Medicine [facility] care [facility] Comment: Please note this report has been produced using speech recognition software and may contain errors related to that system including errors in grammar, punctuation, and spelling, as well as words and phrases that may be inappropriate. If there is any questions or concerns please feel free to contact the dictating provider for clarification documented in this [facility]01-16-2025 Plan of care note* Care Plan - Sue Schuler RN - 07/15/2024 9:31 PM EST Problem: Knowledge Deficit Goal: Patient/family/caregiver demonstrates understanding of disease process, treatment plan, medications, and discharge instructions Outcome: Progressing Problem: Excessive Fluid Volume Goal: Fluid and electrolyte balance are achieved/maintained Outcome: Progressing Problem: Activity Intolerance/Impaired Mobility Goal: Mobility/activity is maintained at optimum level for patient Outcome: Progressing Problem: Nutrition Goal: Nutritional status is improving Outcome: Progressing [id number] Miscellaneous Notes* Care Plan - Sue Schuler RN - 07/15/2024 9:31 PM EST Problem: Knowledge Deficit Goal: Patient/family/caregiver demonstrates understanding of disease process, treatment plan, medications, and discharge instructions Outcome: Progressing Problem: Excessive Fluid Volume Goal: Fluid and electrolyte balance are achieved/maintained Outcome: Progressing Problem: Activity Intolerance/Impaired Mobility Goal: Mobility/activity is maintained at optimum level for patient Outcome: Progressing Problem: Nutrition Goal: Nutritional status is improving Outcome: Progressing * Care Plan - Puja Monterroso RN - 07/15/2024 12:42 PM EST Problem: Knowledge Deficit Goal: Patient/family/caregiver demonstrates understanding of disease process, treatment plan, medications, and discharge instructions Outcome: Progressing Problem: Excessive Fluid Volume Goal: Fluid and electrolyte balance are achieved/maintained Outcome: Progressing Problem: Activity Intolerance/Impaired Mobility Goal: Mobility/activity is maintained at optimum level for patient Outcome: Progressing Problem: Nutrition Goal: Nutritional status is improving Outcome: Progressing * Care Plan - Sue Schuler RN - 07/15/2024 3:12 AM EST Problem: Knowledge Deficit Goal: Patient/family/caregiver demonstrates understanding of disease process, treatment plan, medications, and discharge instructions Outcome: Progressing Problem: Excessive Fluid Volume Goal: Fluid and electrolyte balance are achieved/maintained Outcome: Progressing Problem: Activity Intolerance/Impaired Mobility Goal: Mobility/activity is maintained at optimum level for patient Outcome: Progressing Problem: Nutrition Goal: Nutritional status is improving Outcome: Progressing * Care Coordination - Narcisa Tavarez RN - 07/14/2024 4:27 PM EST Pt admitted to PCU for NSTEMI. Chart reviewed. Cardiology following. Pt has refusing to go to [facility] for advanced heart failure reevaluation. Refused life vest with last admission, and is reluctant about a defibrillator. Discharge plan will be home when medically ready. product communications manager to follow and assist as needed. * Significant Event - Sherri Jeter MD - 07/14/2024 6:38 AM EST Rapid response called due to tachycardia + fast rate on tele Appears to be sustained V. tach. + symptomatic He does feel palpitations in his chest he does feel uncomfortable and he also felt lightheaded but he was still conversing. He at first declined meds. I discussed with him in the past I recommend medication as well as referral to [facility] for defibrillator placement. At first he declined medications but then agreed to excepting 5 mg of Lopressor. This was given and his heart rate did correct back down to sinus. I explained to him this is only a temporary fix he is likely to continue to have arrhythmias and without medication to suppress them or defibrillator to detect and attempt to correct them he likely is to have unexpected episodes of arrhythmias leading to lightheadedness and uneasiness even falls where he could hurt himself or even worse . He is calm alert and understands what I am saying He just is unsure about taking medicines getting a LifeVest or getting a defibrillator. For now we will continue him on telemetry. Last potassium and magnesium checked were normal During the episode he thought he might of had a little bit abdominal discomfort + nausea and abd fullness Because of this I will request a CMP and lipase as his LFTs were elevated in the past * Rapid Response Note - Inga Acosta RN - 07/14/2024 5:08 AM EST TANK ERECTOR called for pt in ventricular tachycardia in 180's. Bedside RN states pt has been going in and out of rhythm, but pt is refusing most care and medications. Pt states his only complaint is some dizziness, denies chest pain, SOB, or any other pains or problems. Vitals taken and monitor pads placedon pt, pt then converted and HR now 120's. Dr Jeter at bedside. Pt agrees to taking medication. Willcontinue to monitor. Rapid Response Reason Rapid Response Reason Rapid Response Notification Reason(s): Abnormal/Change in Vital Signs Vitals Review of Systems: Provider Notifications Provider Notification Reason for Communication: Rapid response team Provider Name: Dr. Jeter Provider Role: Rapid response team Method of Communication: Page Response: At bedside Notification Date: 07/14/24 Notification Time: 435 Anaphylaxis Assessment Chest Pain Assessment: Epistaxis Assessment: Extravasation Assessment: Fall Assessment Patient Disposition Patient Disposition Patient Disposition: Continue monitoring at current level of care * Care Plan - Leatha Lancaster RN - 07/14/2024 4:06 AM EST Problem: Knowledge Deficit Goal: Patient/family/caregiver demonstrates understanding of disease process, treatment plan, medications, and discharge instructions Outcome: Not Progressing Problem: Knowledge Deficit Goal: Patient/family/caregiver demonstrates understanding of disease process, treatment plan, medications, and discharge instructions Outcome: Not Progressing * Significant Event - Sherri Jeter MD - 07/13/2024 9:55 PM EST He developed sinus tach on tele EKG obtained 5mg of lopressor ordered He then spontaneously went back to normal rhythm before being given. He did have fluttering in his chest, all symptoms now resolved EKG of sinus tach is in epic * Care Plan - Tamiko Live RN - 07/12/2024 5:24 PM EST Problem: Excessive Fluid Volume Goal: Fluid and electrolyte balance are achieved/maintained Outcome: Progressing Problem: Activity Intolerance/Impaired Mobility Goal: Mobility/activity is maintained at optimum level for patient Outcome: Progressing Problem: Nutrition Goal: Nutritional status is improving Outcome: Progressing Problem: Knowledge Deficit Goal: Patient/family/caregiver demonstrates understanding of disease process, treatment plan, medications, and discharge instructions Outcome: Progressing documented in this [facility]01-16-2025 Plan of care note* Care Plan - Puja Monterroso RN - 07/15/2024 12:42 PM EST Problem: Knowledge Deficit Goal: Patient/family/caregiver demonstrates understanding of disease process, treatment plan, medications, and discharge instructions Outcome: Progressing Problem: Excessive Fluid Volume Goal: Fluid and electrolyte balance are achieved/maintained Outcome: Progressing Problem: Activity Intolerance/Impaired Mobility Goal: Mobility/activity is maintained at optimum level for patient Outcome: Progressing Problem: Nutrition Goal: Nutritional status is improving Outcome: Progressing [id number] Plan of care note* Care Plan - Sue Schuler RN - 07/15/2024 3:12 AM EST Problem: Knowledge Deficit Goal: Patient/family/caregiver demonstrates understanding of disease process, treatment plan, medications, and discharge instructions Outcome: Progressing Problem: Excessive Fluid Volume Goal: Fluid and electrolyte balance are achieved/maintained Outcome: Progressing Problem: Activity Intolerance/Impaired Mobility Goal: Mobility/activity is maintained at optimum level for patient Outcome: Progressing Problem: Nutrition Goal: Nutritional status is improving Outcome: Progressing [id number] Note* Care Coordination - Narcisa Tavarez RN - 07/14/2024 4:27 PM EST Pt admitted to PCU for NSTEMI. Chart reviewed. Cardiology following. Pt has refusing to go to [facility] for advanced heart failure reevaluation. Refused life vest with last admission, and is reluctant about a defibrillator. Discharge plan will be home when medically ready. product communications manager to follow and assist as needed. [id number] Note* Care Coordination - Narcisa Tavarez RN - 07/14/2024 4:27 PM EST Pt admitted to PCU for NSTEMI. Chart reviewed. Cardiology following. Pt has refusing to go to [facility] for advanced heart failure reevaluation. Refused life vest with last admission, and is reluctant about a defibrillator. Discharge plan will be home when medically ready. product communications manager to follow and assist as needed. [id number] NoteAtrial tachycardia Abnormal R-wave progression, late transition Probable LVH with secondary repol abnrm Prolonged QT interval Electronically Signed On 07-14-2024 09:33:32 EST by Radha COLBY 07-14-2024 NoteAtrial tachycardia Abnormal R-wave progression, late transition Probable LVH with secondary repol abnrm Prolonged QT interval Electronically Signed On 07-14-2024 09:33:32 EST by Radha ParikhBLANCHARD VALLEY HE[facility] SYSTEMANY 07-14-2024 NoteIMPRESSION: Atrial tachycardia Abnormal R-wave progression, late transition Probable LVH with secondary repol abnrm Prolonged QT interval Electronically Signed On 07-14-2024 09:33:32 EST by Radha [facility]01-15-2025 Note* Significant Event - Sherri Jeter MD - 07/14/2024 6:38 AM EST Rapid response called due to tachycardia + fast rate on tele Appears to be sustained V. tach. + symptomatic He does feel palpitations in his chest he does feel uncomfortable and he also felt lightheaded but he was still conversing. He at first declined meds. I discussed with him in the past I recommend medication as well as referral to [facility] for defibrillator placement. At first he declined medications but then agreed to excepting 5 mg of Lopressor. This was given and his heart rate did correct back down to sinus. I explained to him this is only a temporary fix he is likely to continue to have arrhythmias and without medication to suppress them or defibrillator to detect and attempt to correct them he likely is to have unexpected episodes of arrhythmias leading to lightheadedness and uneasiness even falls where he could hurt himself or even worse . He is calm alert and understands what I am saying He just is unsure about taking medicines getting a LifeVest or getting a defibrillator. For now we will continue him on telemetry. Last potassium and magnesium checked were normal During the episode he thought he might of had a little bit abdominal discomfort + nausea and abd fullness Because of this I will request a CMP and lipase as his LFTs were elevated in the past [employer] Phone: [phone] Note* Significant Event - Sherri Jeter MD - 07/14/2024 6:38 AM EST Rapid response called due to tachycardia + fast rate on tele Appears to be sustained V. tach. + symptomatic He does feel palpitations in his chest he does feel uncomfortable and he also felt lightheaded but he was still conversing. He at first declined meds. I discussed with him in the past I recommend medication as well as referral to [facility] for defibrillator placement. At first he declined medications but then agreed to excepting 5 mg of Lopressor. This was given and his heart rate did correct back down to sinus. I explained to him this is only a temporary fix he is likely to continue to have arrhythmias and without medication to suppress them or defibrillator to detect and attempt to correct them he likely is to have unexpected episodes of arrhythmias leading to lightheadedness and uneasiness even falls where he could hurt himself or even worse . He is calm alert and understands what I am saying He just is unsure about taking medicines getting a LifeVest or getting a defibrillator. For now we will continue him on telemetry. Last potassium and magnesium checked were normal During the episode he thought he might of had a little bit abdominal discomfort + nausea and abd fullness Because of this I will request a CMP and lipase as his LFTs were elevated in the past [employer] Phone: [phone] Note* Rapid Response Note - Inga Acosta RN - 07/14/2024 5:08 AM EST TANK ERECTOR called for pt in ventricular tachycardia in 180's. Bedside RN states pt has been going in and out of rhythm, but pt is refusing most care and medications. Pt states his only complaint is some dizziness, denies chest pain, SOB, or any other pains or problems. Vitals taken and monitor pads placedon pt, pt then converted and HR now 120's. Dr Jeter at bedside. Pt agrees to taking medication. Willcontinue to monitor. Rapid Response Reason Rapid Response Reason Rapid Response Notification Reason(s): Abnormal/Change in Vital Signs Vitals Review of Systems: Provider Notifications Provider Notification Reason for Communication: Rapid response team Provider Name: Dr. Jeter Provider Role: Rapid response team Method of Communication: Page Response: At bedside Notification Date: 07/14/24 Notification Time: 043 Anaphylaxis Assessment Chest Pain Assessment: Epistaxis Assessment: Extravasation Assessment: Fall Assessment Patient Disposition Patient Disposition Patient Disposition: Continue monitoring at current level of care [facility] [id number] Note* Rapid Response Note - Inga Acosta RN - 07/14/2024 5:08 AM EST TANK ERECTOR called for pt in ventricular tachycardia in 180's. Bedside RN states pt has been going in and out of rhythm, but pt is refusing most care and medications. Pt states his only complaint is some dizziness, denies chest pain, SOB, or any other pains or problems. Vitals taken and monitor pads placedon pt, pt then converted and HR now 120's. Dr Jeter at bedside. Pt agrees to taking medication. Willcontinue to monitor. Rapid Response Reason Rapid Response Reason Rapid Response Notification Reason(s): Abnormal/Change in Vital Signs Vitals Review of Systems: Provider Notifications Provider Notification Reason for Communication: Rapid response team Provider Name: Dr. Jeter Provider Role: Rapid response team Method of Communication: Page Response: At bedside Notification Date: 07/14/24 Notification Time: 0436 Anaphylaxis Assessment Chest Pain Assessment: Epistaxis Assessment: Extravasation Assessment: Fall Assessment Patient Disposition Patient Disposition Patient Disposition: Continue monitoring at current level of care [facility] [id number] Plan of care note* Care Plan - Leatha Lancaster RN - 07/14/2024 4:06 AM EST Problem: Knowledge Deficit Goal: Patient/family/caregiver demonstrates understanding of disease process, treatment plan, medications, and discharge instructions Outcome: Not Progressing Problem: Knowledge Deficit Goal: Patient/family/caregiver demonstrates understanding of disease process, treatment plan, medications, and discharge instructions Outcome: Not Progressing [facility] [id number] Nurse Note* Leatha Lancaster RN - 07/13/2024 10:38 PM EST 11 beat wide complex beats-denied symptoms to this RN. Dr Jeter spoke at length to pt re: health risks with refusing intervention. [id number] Nurse Note* Leatha Lancaster RN - 07/13/2024 10:38 PM EST 11 beat wide complex beats-denied symptoms to this RN. Dr Jeter spoke at length to pt re: health risks with refusing intervention. * Kira Santos RN - 07/12/2024 12:44 PM EST Patient does not want to take his sodium bicarb until 2pm. documented in this [facility]01-14-2025 Note* Significant Event - Sherri Jeter MD - 07/13/2024 9:55 PM EST He developed sinus tach on tele EKG obtained 5mg of lopressor ordered He then spontaneously went back to normal rhythm before being given. He did have fluttering in his chest, all symptoms now resolved EKG of sinus tach is in epic [id number] Note* Significant Event - Sherri Jeter MD - 07/13/2024 9:55 PM EST He developed sinus tach on tele EKG obtained 5mg of lopressor ordered He then spontaneously went back to normal rhythm before being given. He did have fluttering in his chest, all symptoms now resolved EKG of sinus tach is in epic [id number] Hospital Discharge instructions* Discharge Instructions* Dia Gaitan RN - 07/13/2024 9:40 AM EST My Heart Failure Action Plan Use the below chart as a guide for daily symptom monitoring after you obtain your morning weight. My Bending Shed Worker[facility] [phone] My Diagnosis: Severe biventricular heart failure (both the right and left sides of your heart are very weak) complicated by chronic kidney disease My Ejection Fraction: ~20% NORMAL 50-65% My Exercise Goal: as tolerated My Weight Goal: Standing weight day of hospital discharge Weigh yourself daily using the same scale. If you gain more than 3 pounds in 24 hours or 5 pounds in a week Call your Bending Shed Worker!! My Diet Goal: General diet recommendations for heart failure patients are less than 2,000mg sodium and less than 2 liters of fluid per day. This will help with symptoms of fluid retention, such as swelling and shortness of breath. See provider orders for additional/alternative recommendations. Emergency Room Visits: Our goal is to improve your quality of life and help you avoid a visit to the emergency room or hospital. If we work together, we can achieve this goal. But, if you feel you need to call 911 or go tot emergency room, please do so. If you go to the emergency room, please bring your list of medicines and your daily weight chart with you. GREEN ZONE Doing well today Weight gained is no more than 3 pounds a day or 5 pounds a week. No swelling in feet, ankles, legs or stomach. No more swelling than usual. No more trouble breathing than usual. No change in my sleep. No other problems. Actions: I am doing fine. I will take my medicine, follow my diet, see my doctor, exercise, and watch for symptoms YELLOW ZONE Having a bad day or flare up Weight gained of more than 3 pounds in one day or 5 pounds in one week. New swelling in ankle, leg, knee, or thigh. Bloating in belly, pants feel tighter. Swelling in hands or face. Coughing or trouble breathing while walking or talking. Harder to breathe last night. Have trouble sleeping, wake up short of breath. Much more tired than usual. Not eating. Pain in my chest or bad leg cramps. Feel weak or dizzy. Signs and symptoms of Dehydration: dark and/or less urine, dry cracked mouth/skin, lethargic, lightheaded, dizzy, low blood pressure readings with high heart rate Actions: I need to take action and call my doctor or nurse today. RED ZONE NEED MEDICAL CARE NOW Weight gain of 5 pounds overnight. Chest pain or pressure that does not go away. Feel less alert. Wheezing or have trouble breathing when at rest. Cannot sleep lying down. Cannot take my water pill. Pass out or faint. ACTIONS I need to call my doctor or nurse now! Call 911 if I have chest pain or cannot breathe. * Attachments The following attachments cannot be sent through Care Everywhere. * Diastolic Heart Failure Discharge Instructions (Moroccan) documented in this [facility]01-13-2025 Plan of care note* Care Plan - Tamiko Live RN - 07/12/2024 5:24 PM EST Problem: Excessive Fluid Volume Goal: Fluid and electrolyte balance are achieved/maintained Outcome: Progressing Problem: Activity Intolerance/Impaired Mobility Goal: Mobility/activity is maintained at optimum level for patient Outcome: Progressing Problem: Nutrition Goal: Nutritional status is improving Outcome: Progressing Problem: Knowledge Deficit Goal: Patient/family/caregiver demonstrates understanding of disease process, treatment plan, medications, and discharge instructions Outcome: Progressing [id number] Nurse Note* Kira Santos RN - 07/12/2024 12:44 PM EST Patient does not want to take his sodium bicarb until 2pm. [id number] Consult note* Shannan Lima MD - 07/12/2024 9:37 AM EST Associated Order(s): IP CONSULT TO CARDIOLOGY [facility] [place] [facility] Consult Note Reason for Consult/Chief Complaint: Heart Failure Consulting MD: Dr. Samuel History of Present Illness: Carlo Medina is a 44 y.o. male admitted for heart failure. He is known to have HFrEF secondary todilated-nonischemic cardiomyopathy (BiV failure, LVEF 20%, GLS <-9%, 2+ FMR), recently discharged from [facility] for ADHF (losartan 50/lasix 40 mg daily), patient report hydralazine made him feel worse,he used to be on carvedilol which was stopped for low output during recent admission 07/04/2024 and was planned to restart slowly, prior notes ?diuretic compliance, also, he has CKD Cr 1.7 and Fhx of heart failure in dad. He reports feeling better today, not back to his baseline. Abdominal pain improved on diuresis, LFTmildly elevated, small ascites on CT. He had CARRERA prior to admission intermittently, currently no SOB. He reports mild leg edema. No dizziness or syncope, no chest pain. ECG sinus tachycardia, LVH with secondary repolarization abnormalities. CXR cardiomegaly, no significant congestion. Recent cath and TTE reviewed. No ETOH or drugs, he reports taking his meds as prescribed. Past Medical History: Past Medical History: Diagnosis Date CHF (congestive heart failure) (HCC) CKD (chronic kidney disease) Hypercholesteremia Hypertension Past Surgical History: Past Surgical History: Procedure Laterality Date CARDIAC CATHETERIZATION N/A 06/17/2024 Performed by Akilah Diaz MD at [facility] 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 Family History: Family History Problem Relation Name Age of Onset Heart disease Father Heart disease Brother Social History: Social History Tobacco Use Smoking status: Never Passive exposure: Never Smokeless tobacco: Never Vaping Use Vaping status: Never Used Substance Use Topics Alcohol use: Never Drug use: Never Medications: cholecalciferol, 4,000 Units, Oral, Daily [START ON 07/13/2024] sacubitril-valsartan, 1 tablet, Oral, BID sodium bicarbonate, 1,300 mg, Oral, BID Allergies: Patient has no known allergies. Reviewed Review of Systems: All other systems were reviewed and are negative other than as noted in the HPI. Physical Examination: Vitals: Blood pressure 98/66, pulse 50, temperature (!) 35.9 C (96.6 F), temperature source Temporal, resp. rate 18, SpO2 100%. Intake/Output Summary (Last 24 hours) at 07/12/2024 0972 Last data filed at 07/12/2024 0515 Gross per 24 hour Intake -- Output 2350 ml Net -2350 ml Wt Readings from Last 3 Encounters: 07/07/24 177 lb 6.4 oz (80.5 kg) 07/05/24 170 lb 6.4 oz (77.3 kg) 07/01/24 175 lb (79.4 kg) Neck: Borderline JVD. Respiratory: Lungs are clear. No rales or wheezes. Respiratory effort is normal and symmetrical bilaterally; Good air movement bilaterally. Heart: RRR; Normal S1 and S2. Precordial systolic murmur; No rub; no gallop. Extremities/Skin: 1+ LE edema; Skin warm to touch and well perfused Laboratory Tests: Results from last 7 days Lab Units 07/12/24 0637 07/11/242024 WBC AUTO 10*3/uL 8.2 8.4 HEMOGLOBIN g/dL 14.4 15.5 HEMATOCRIT % 45.6 48.4 MCV fL 105.1* 102.8* PLATELETS 10*3/uL 246 270 Lab Results Component Value Date GLUCOSE 104 (H) 07/12/2024 CALCIUM 8.6 07/12/2024 NA 139 07/12/2024 K 4.5 07/12/2024 CO2 20 (L) 07/12/2024 CL 107 07/12/2024 BUN 31 (H) 07/12/2024 CREATININE 1.79 (H) 07/12/2024 Lab Results Component Value Date HGBA1C 5.0 03/01/2024 Lab Results Component Value Date TSH 0.68 07/12/2024 Lab Results Component Value Date CHOL 130 06/14/2024 CHOL 172 02/29/2024 Lab Results Component Value Date HDL 16 (L) 06/14/2024 HDL 28 (L) 02/29/2024 Lab Results Component Value Date LDLCALC 100 (H) 06/14/2024 LDLCALC 126 (H) 02/29/2024 Lab Results Component Value Date TRIG 68 06/14/2024 TRIG 88 02/29/2024 Lab Results Component Value Date TROPONINI 0.037 (H) 05/28/2024 Assessment/Plan HFrEF: stage C, NICM/severe BiV failure/FMR, perfused, volume overloaded. -switch from losartan to low dose entresto as he does not want to try hydralazine again -hold off lasix today, resume tomorrow after entresto -will start carvedilol when more stable/euvolemic and when output is more optimized by entresto -no digoxin due to advanced CKD -hold off MRA given CKD, we will consider if renal function remain stable after entresto -not on SGLT2 at this time, underlying significant renal dysfunction HTN: elevated BP on admission 140's mmHg, currently 98 mmHg systolic -monitor and titrate GDMT as able Elevated troponin: secondary to heart failure, no ACS. -stop heparin History of PE: resume apixaban home dose 5 mg bid Discussed possible need to [facility] transfer for advanced HF re-evaluation, he does not want to be transferred to [facility] at this time and agrees with above plan. Sahnnan Lima MD, FAC, [facility] DATE of SERVICE: 07/12/2024 [id number] Consult note* Shannan Lima MD - 07/12/2024 9:37 AM EST Associated Order(s): IP CONSULT TO CARDIOLOGY [facility] [place] [facility] Consult Note Reason for Consult/Chief Complaint: Heart Failure Consulting MD: Dr. Samuel History of Present Illness: Carlo Medina is a 44 y.o. male admitted for heart failure. He is known to have HFrEF secondary todilated-nonischemic cardiomyopathy (BiV failure, LVEF 20%, GLS <-9%, 2+ FMR), recently discharged from [facility] for ADHF (losartan 50/lasix 40 mg daily), patient report hydralazine made him feel worse,he used to be on carvedilol which was stopped for low output during recent admission 07/04/2024 and was planned to restart slowly, prior notes ?diuretic compliance, also, he has CKD Cr 1.7 and Fhx of heart failure in dad. He reports feeling better today, not back to his baseline. Abdominal pain improved on diuresis, LFTmildly elevated, small ascites on CT. He had CARRERA prior to admission intermittently, currently no SOB. He reports mild leg edema. No dizziness or syncope, no chest pain. ECG sinus tachycardia, LVH with secondary repolarization abnormalities. CXR cardiomegaly, no significant congestion. Recent cath and TTE reviewed. No ETOH or drugs, he reports taking his meds as prescribed. Past Medical History: Past Medical History: Diagnosis Date CHF (congestive heart failure) (HCC) CKD (chronic kidney disease) Hypercholesteremia Hypertension Past Surgical History: Past Surgical History: Procedure Laterality Date CARDIAC CATHETERIZATION N/A 06/17/2024 Performed by Akilah Diaz MD at [facility] 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 Family History: Family History Problem Relation Name Age of Onset Heart disease Father Heart disease Brother Social History: Social History Tobacco Use Smoking status: Never Passive exposure: Never Smokeless tobacco: Never Vaping Use Vaping status: Never Used Substance Use Topics Alcohol use: Never Drug use: Never Medications: cholecalciferol, 4,000 Units, Oral, Daily [START ON 07/13/2024] sacubitril-valsartan, 1 tablet, Oral, BID sodium bicarbonate, 1,300 mg, Oral, BID Allergies: Patient has no known allergies. Reviewed Review of Systems: All other systems were reviewed and are negative other than as noted in the HPI. Physical Examination: Vitals: Blood pressure 98/66, pulse 50, temperature (!) 35.9 C (96.6 F), temperature source Temporal, resp. rate 18, SpO2 100%. Intake/Output Summary (Last 24 hours) at 07/12/2024 0937 Last data filed at 07/12/2024 0515 Gross per 24 hour Intake -- Output 2350 ml Net -2350 ml Wt Readings from Last 3 Encounters: 07/07/24 177 lb 6.4 oz (80.5 kg) 07/05/24 170 lb 6.4 oz (77.3 kg) 07/01/24 175 lb (79.4 kg) Neck: Borderline JVD. Respiratory: Lungs are clear. No rales or wheezes. Respiratory effort is normal and symmetrical bilaterally; Good air movement bilaterally. Heart: RRR; Normal S1 and S2. Precordial systolic murmur; No rub; no gallop. Extremities/Skin: 1+ LE edema; Skin warm to touch and well perfused Laboratory Tests: Results from last 7 days Lab Units 07/12/24 0637 07/11/242024 WBC AUTO 10*3/uL 8.2 8.4 HEMOGLOBIN g/dL 14.4 15.5 HEMATOCRIT % 45.6 48.4 MCV fL 105.1* 102.8* PLATELETS 10*3/uL 246 270 Lab Results Component Value Date GLUCOSE 104 (H) 07/12/2024 CALCIUM 8.6 07/12/2024 NA 139 07/12/2024 K 4.5 07/12/2024 CO2 20 (L) 07/12/2024 CL 107 07/12/2024 BUN 31 (H) 07/12/2024 CREATININE 1.79 (H) 07/12/2024 Lab Results Component Value Date HGBA1C 5.0 03/01/2024 Lab Results Component Value Date TSH 0.68 07/12/2024 Lab Results Component Value Date CHOL 130 06/14/2024 CHOL 172 02/29/2024 Lab Results Component Value Date HDL 16 (L) 06/14/2024 HDL 28 (L) 02/29/2024 Lab Results Component Value Date LDLCALC 100 (H) 06/14/2024 LDLCALC 126 (H) 02/29/2024 Lab Results Component Value Date TRIG 68 06/14/2024 TRIG 88 02/29/2024 Lab Results Component Value Date TROPONINI 0.037 (H) 05/28/2024 Assessment/Plan HFrEF: stage C, NICM/severe BiV failure/FMR, perfused, volume overloaded. -switch from losartan to low dose entresto as he does not want to try hydralazine again -hold off lasix today, resume tomorrow after entresto -will start carvedilol when more stable/euvolemic and when output is more optimized by entresto -no digoxin due to advanced CKD -hold off MRA given CKD, we will consider if renal function remain stable after entresto -not on SGLT2 at this time, underlying significant renal dysfunction HTN: elevated BP on admission 140's mmHg, currently 98 mmHg systolic -monitor and titrate GDMT as able Elevated troponin: secondary to heart failure, no ACS. -stop heparin History of PE: resume apixaban home dose 5 mg bid Discussed possible need to [facility] transfer for advanced HF re-evaluation, he does not want to be transferred to [facility] at this time and agrees with above plan. Shannan Lima MD, [facility] DATE of SERVICE: 07/12/2024 documented in this [facility]01-13-2025 Emergency department Note* Celestino Garay RN - 07/12/2024 1:13 AM EST APTT drawn by venipuncture, previous specimen also drawn by venipuncture [id number] Emergency department Note* Celestino Garay RN - 07/12/2024 1:13 AM EST APTT drawn by venipuncture, previous specimen also drawn by venipuncture * Yasmeen Petersen RN - 07/11/2024 7:22 PM EST TANK ERECTOR RN called for USIV * Donaldo Kenny MD - 07/11/2024 5:20 PM EST Emergency Department Encounter [facility] ED Patient: Carlo Medina : 1980 Date of Evaluation: 07/11/2024 ED Supervising Physician: Rayna Kenny MD I independently examined and evaluated Carlo Medina. THIS IS MY SUPERVISORY AND SHARED VISIT NOTE: I personally saw the patient and made/approved the management plan and take responsibility for the patient management. In brief, Carlo Medina is a 44 y.o. male that presents to the emergency department for cough, shortness of breath, abdominal pain. He states that his abdominal pain began yesterday and he gained 4 pounds over the past 3 days despite being compliant with his diuretics. He states that this feels like when he is fluid overloaded. He denies any chest pain. Focused exam: Patient resting comfortably but tachycardic. Lungs are clear to auscultation bilaterally. Brief ED course/MDM: EMERGENCY DEPARTMENT COURSE and DIFFERENTIAL DIAGNOSIS/MDM: Vitals: Vitals: 07/11/24 1726 BP: (!) 148/86 BP Location: Right arm Patient Position: Sitting Pulse: (!) 113 Resp: 18 Temp: (!) 35.9 C (96.6 F) TempSrc: Temporal SpO2: 99% The patient presented with a chief complaint of cough, shortness of breath, abdominal pain. The differential diagnosis associated with this patient's presentation includes but is not limited to: Presentation concerning for symptoms secondary to fluid overload versus ACS versus infectious etiology versus acute intra-abdominal process. Our workup consisted of ordering/reviewing: CBC, BMP, troponin, hepatic function panel, proBNP, chest x-ray, EKG, CT abdomen pelvis. I reviewed external records from: PDMP demonstrating no controlled substance prescriptions Patient care discussed with: admitting team, who has agreed to admit the patient Consideration for escalation of care with: Admission/observation . The patient requires hospitalization due to fluid overload refractory to diuretics at home, tachycardia Patient's care was impacted by history of CHF and multiple admissions due to CHF exacerbation The patient will be admitted The patient is in agreement with this plan. ED Medications managed: Medications furosemide (Lasix) injection 40 mg (has no administration in time range) CRITICAL CARE TIME None All diagnostic, treatment, and disposition decisions were made by myself in conjunction with the Resident or ISAAC. I also supervised reardon portions of any procedures performed by the Resident. For all further details of the patient's emergency department visit, please see their documentation. (Comment: Please note this report has been produced using speech recognition software and may contain errors related to that system including errors in grammar, punctuation, and spelling, as well as words and phrases that may be inappropriate. If there are any questions or concerns please feel freeto contact the dictating provider for clarification.) Rayna Kenny MD Acute Care Home Chef Donaldo Kenny MD 07/11/242036 * Lorie Nguyen RN - 07/11/2024 5:20 PM EST Patient arrives to er with complaints of upper abd pain. States he was here last week and had to get diuretics, he had fluid retention. Endorses similar sx and increased weight. Pt weight Friday was 170lbs, today 174lbs. Denies any SOB documented in this [facility]01-12-2025 History and physical note* Rafa Samuel MD - 07/11/2024 9:54 PM EST Attending History and Physical Admit Date: 07/11/2024 PCP: No primary care provider on file. CHIEF COMPLAINT: Shortness of breath Reason for Admission: Non-ST elevation ND History Obtained From: patient HISTORY OF PRESENT ILLNESS: Carlo is a 44 y.o. male with past medical history significant for CHF, CKD, hypertension, hyperlipidemia who presented emergency room with complaint of shortness of breath, abdominal discomfort, cough. Patient started having abdominal discomfort yesterday. Denied having any nausea vomiting diarrhea or constipation. Patient also has been dealing with shortness of breath and stated that he has gained about 4 pounds over the course of last 3 days. He has been taking his medications regularly. Hedoes have prior history significant for heart failure with reduced ejection fraction. Patient has been concerned as he has been hospitalized multiple occasions for similar symptoms. Patient evidently was in the hospital early last week for similar symptoms where he was advised to stay in the hospital for further medication titration however patient wished to go home and subsequently he was discharged home on revised medication regimen. Past Medical History: Past Medical History: Diagnosis Date CHF (congestive heart failure) (HCC) CKD (chronic kidney disease) Hypercholesteremia Hypertension Past Surgical History: Past Surgical History: Procedure Laterality Date CARDIAC CATHETERIZATION N/A 06/17/2024 Performed by Akilah Diaz MD at [facility] 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 Social History: Social History Socioeconomic History Marital status: Single Spouse name: Not on file Number of children: Not on file Years of education: Not on file Highest education level: Not on file Occupational History Not on file Tobacco Use Smoking status: Never Passive exposure: Never Smokeless tobacco: Never Vaping Use Vaping status: Never Used Substance and Sexual Activity Alcohol use: Never Drug use: Never Sexual activity: Yes Partners: Female Other Topics Concern Not on file Social History Narrative Not on file Social Drivers of Health Financial Resource Strain: Low Risk (07/04/2024) Overall Financial Resource Strain (CARDIA) Difficulty of Paying Living Expenses: Not very hard Food Insecurity: No Food Insecurity (07/04/2024) Hunger Vital Sign Worried About Running Out of Food in the Last Year: Never true Ran Out of Food in the Last Year: Never true Transportation Needs: No Transportation Needs (07/04/2024) PRAPARE - Transportation Lack of Transportation (Medical): No Lack of Transportation (Non-Medical): No Physical Activity: Insufficiently Active (07/04/2024) Exercise Vital Sign Days of Exercise per Week: 1 day Minutes of Exercise per Session: 10 min Stress: Stress Concern Present (07/04/2024) [place] [place] [employer] - Occupational Stress Questionnaire Feeling of Stress : To some extent Social Connections: Unknown (07/04/2024) Social Connection and Isolation Panel [NHANES] Frequency of Communication with Friends and Family: Once a week Frequency of Social Gatherings with Friends and Family: Once a week Attends Holiness Services: 1 to 4 times per year Active Member of Clubs or Organizations: No Attends Club or Organization Meetings: Never Marital Status: Patient declined Intimate Partner Violence: Not At Risk (07/04/2024) Humiliation, Afraid, Rape, and Kick questionnaire Fear of Current or Ex-Partner: No Emotionally Abused: No Physically Abused: No Sexually Abused: No Housing Stability: Low Risk (07/04/2024) Housing Stability Vital Sign Unable to Pay for Housing in the Last Year: No Number of Times Moved in the Last Year: 0 Homeless in the Last Year: No Family History: Family History Problem Relation Name Age of Onset Heart disease Father Heart disease Brother Medications Prior to Admission: No current facility-administered medications on file prior to encounter. Current Outpatient Medications on File Prior to Encounter Medication Sig Dispense Refill apixaban (Eliquis) 5 MG tablet Take 1 tablet (5 mg) by mouth 2 times daily. 60 tablet 2 cholecalciferol (Vitamin D-3) 50 MCG (2000 UT) tablet Take 2 tablets (4,000 Units) by mouth daily. 180 tablet 0 furosemide (Lasix) 40 MG tablet Take 1 tablet (40 mg) by mouth daily. 30 tablet 11 losartan (Cozaar) 50 MG tablet Take 1 tablet (50 mg) by mouth daily. 30 tablet 11 sodium bicarbonate 650 MG tablet Take 2 tablets (1,300 mg) by mouth 2 times daily. 360 tablet 0 [DISCONTINUED] apixaban (Eliquis) 5 MG tablet Take 2 tablets (10 mg) by mouth 2 times daily for 3 days, THEN 1 tablet (5 mg) 2 times daily. 60 tablet 3 [DISCONTINUED] carvedilol (Coreg) 25 MG tablet Take 1 tablet (25 mg) by mouth 2 times daily (with meals). 180 tablet 0 [DISCONTINUED] furosemide (Lasix) 20 MG tablet Take 1 tablet (20 mg) by mouth daily. 90 tablet 3 [DISCONTINUED] hydrALAZINE (Apresoline) 100 MG tablet Take 1 tablet (100 mg) by mouth 3 times daily. 270 tablet 3 [DISCONTINUED] isosorbide dinitrate (Isordil) 20 MG tablet Take 1.5 tablets (30 mg) by mouth 3 times daily. (Patient taking differently: Take 30 mg by mouth 3 times daily.) 270 tablet 0 [DISCONTINUED] losartan (Cozaar) 25 MG tablet Take 1 tablet (25 mg) by mouth daily. 30 tablet 11 Allergies: No Known Allergies REVIEW OF SYSTEMS: Constitutional: Negative for fever, chills, activity change and unexpected weight change. HEENT: Negative for congestion, postnasal drip and sneezing. Eyes: Negative for itching and visual disturbance. Respiratory: Negative for apnea, choking, chest tightness, positive for shortness of breath, cough Cardiovascular: Negative for chest pain. Gastrointestinal: Negative for nausea, vomiting, diarrhea and blood in stool. Positive for abdominal pain Genitourinary: Negative for dysuria, frequency and flank pain. Musculoskeletal: Negative for myalgias and joint swelling. Skin: Negative for rash. Neurological: Negative for dizziness, tremors, seizures, syncope, facial asymmetry, speech difficulty, weakness, numbness and headaches. Hematological: Negative for adenopathy. Psychiatric/Behavioral: Negative for suicidal ideas, behavioral problems, self- injury and dysphoricmood. Vitals: BP (!) 117/96 (BP Location: Right arm, Patient Position: Sitting) Pulse 99 Temp (!) 35.9 C (96.6 F) (Temporal) Resp 18 SpO2 100% BMI Classification: Pulse Ox: SpO2 Av.5 % Min: 99 % Max: 100 % Supplemental O2: PHYSICAL EXAM: Constitutional: General: Patient is not in acute distress. Appearance: Normal appearance. HENT: Head: Normocephalic and atraumatic. Right Ear: External ear normal. Left Ear: External ear normal. Mouth/Throat: Mouth: Mucous membranes are moist. Pharynx: Oropharynx is clear. Eyes: Extraocular Movements: Extraocular movements intact. Conjunctiva/sclera: Conjunctivae normal. Pupils: Pupils are equal, round, and reactive to light. Cardiovascular: Comments: Regular rate and rhythm, normal S1-S2, no murmurs noted. Radial pulses 2+ and symmetric. Pulmonary: Effort: Pulmonary effort is normal. No respiratory distress. Breath sounds: Normal breath sounds. No stridor. No wheezing or rhonchi. Abdominal: Comments: The abdomen is soft, nondistended and nontender. There is no rebound tenderness or guarding. Bowel sounds are normal. Skin: General: Skin is warm and dry. Capillary Refill: Capillary refill takes less than 2 seconds. Coloration: Skin is not jaundiced or pale. Findings: No bruising or erythema. Neurological: General: No focal deficit present. Mental Status: Patient is alert and oriented to person, place, and time. Mental status is at baseline. Cranial Nerves: No cranial nerve deficit. Sensory: No sensory deficit. Motor: No weakness. Coordination: Coordination normal. Psychiatric: Mood and Affect: Mood normal. Musculoskeletal: 1-2+ pitting pedal edema bilateral lower extremities DATA: CBC: Recent Labs 07/11/242024 WBC 8.4 RBC 4.71 HGB 15.5 HCT 48.4 MCV 102.8* RDW 14.0 PLT 270 BMP: Recent Labs 07/11/242024 NA 141 K 4.6 CL 106 CO2 20* BUN 30* CREATININE 1.70* GLUCOSE 97 CALCIUM 8.8 ANIONGAP 15* LIVER PROFILE: Recent Labs 07/11/242024 AST 75* ALT 134* BILITOT 2.2* ALKPHOS 213* PROT 6.4 PT/INR: No results for input(s): PROTIME, INR in the last 72 hours. CARDIAC ENZYMES: No results for input(s): TROPONINI in the last 72 hours. Procalcitonin: No results found for: PROCAL Urine Culture: No results found for this or any previous visit. COVID-19 PCR: No results for input(s): COVID19 in the last 72 hours. I reviewed: [x] laboratory results [x] radiographic results At the time of today's encounter. Pt was advised of the results. Data: (CAT1) Reviewed 3 or more labs/studies ordered by another provider not previously counted (each=1, panels count as 1). (LOW: 2x CAT1 or independent historian MOD: 3x CAT1 or 1x CAT3 EXTENSIVE: 3x CAT1 and 1x CAT3) Assessment Discussed management with the ED provider and agree with hospitalization. Acute, acute on chronic, unstable/uncontrolled chronic problems/diagnoses: Acute on chronic CHF exacerbation Nonischemic cardiomyopathy Transaminitis Shortness of breath Abdominal pain with possible mild ascites Stable chronic problems affecting care, new non-acute diagnoses: Chronic kidney disease stage IIIb Elevated transaminase Heart failure with reduced ejection fraction, 20% in May/2024. Moderate mitral regurgitation History of hypertension History of DVT History of hyperlipidemia Plan As a result of the above findings & factors, the following mgmt was pursued: -Plan to admit the patient to the telemetry floor Patient recently discharged from the hospital after treated with diuretics for volume overload. Will consult cardiology Monitor daily weight Monitor fluid intake and output Resume rest of medications from home Avoid hepatotoxic medication Monitor liver function panel Patient has been started on weight-based heparin with concern for non-ST elevation ND which will becontinued. Will hold off on the Eliquis - am labs, replace lytes prn - PT/OT/CM/SW - delirium precautions: increase activity and limit nighttime disturbances - DVT prophylaxis: encourage ambulation and already anticoagulated Complexity: Chronic illness with severe exacerbation, progression, or side effect of tx (HIGH). Acute illness with systemic symptoms (MOD). Risk: Admission to hospital-level care was considered or occurred (HIGH). Advance Directive: Prior Anticipated Discharge - Date - 07/14/24 - Location - Home with Home Health Care - Pending the following -treatment for volume overload Total time spent (which include face to face and non face to face encounters) : 55 minutes. Toxic drug monitoring/narrow therapeutic index drug monitoring : # Drug name : Heparin # Route administered : IV # Method of monitoring : CBC Extended Emergency Contact Information Primary Emergency Contact: Indira Medina Mobile Relation: Sister Secondary Emergency Contact: Kaitlin Hicks Mobile Relation: Significant Other [employer] Carlo Medina : 1980 Primary Care Physician: No primary care provider on file. The patient and/or family/surrogate voluntarily agreed to participate in ACP services. Patient s cognitive capacity: Alert, oriented x 3 Code Status: [x_] [FULL CODE - Continue all advanced life support: CPR,intubation,invasive procedures] [_] [DNR-CCA - DO NOT do CPR, intubation] [_] [DNR-STONE DRESSER - Comfort care only] [_] DNR form [was/was not] signed Summary of discussion: The patient health care POA/ surrogate is the following: Patient. . [Condition that instigated the ACP on this DOS, relevant PMH, functional status, goals of care, andwhom this was discussed with including names and relationship to the patient, and any relevant advance care documentation discussion] I answered all the patient/family questions that I could within the range and scope of the current medical situation. We discussed the medical conditions, risks, benefits, outcomes, and goals of careat this time for the patient's medical issues at hand in the face of the patient's chronic issues and current presentation. Total time spent: 5 minutes were spent discussing the patient's resuscitation status, advance care planning, and end of life care, with patient and/or family/surrogate. Rafa Samuel MD Division of Hospitalist Medicine [facility] [place] Phone: [phone] 149-300901-12-2025 [facility]01-12-2025 History and physical note* Rafa Samuel MD - 07/11/2024 9:54 PM EST Attending History and Physical Admit Date: 07/11/2024 PCP: No primary care provider on file. CHIEF COMPLAINT: Shortness of breath Reason for Admission: Non-ST elevation ND History Obtained From: patient HISTORY OF PRESENT ILLNESS: Carlo is a 44 y.o. male with past medical history significant for CHF, CKD, hypertension, hyperlipidemia who presented emergency room with complaint of shortness of breath, abdominal discomfort, cough. Patient started having abdominal discomfort yesterday. Denied having any nausea vomiting diarrhea or constipation. Patient also has been dealing with shortness of breath and stated that he has gained about 4 pounds over the course of last 3 days. He has been taking his medications regularly. Hedoes have prior history significant for heart failure with reduced ejection fraction. Patient has been concerned as he has been hospitalized multiple occasions for similar symptoms. Patient evidently was in the hospital early last week for similar symptoms where he was advised to stay in the hospital for further medication titration however patient wished to go home and subsequently he was discharged home on revised medication regimen. Past Medical History: Past Medical History: Diagnosis Date CHF (congestive heart failure) (HCC) CKD (chronic kidney disease) Hypercholesteremia Hypertension Past Surgical History: Past Surgical History: Procedure Laterality Date CARDIAC CATHETERIZATION N/A 06/17/2024 Performed by Akilah Diaz MD at [facility] 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 Social History: Social History Socioeconomic History Marital status: Single Spouse name: Not on file Number of children: Not on file Years of education: Not on file Highest education level: Not on file Occupational History Not on file Tobacco Use Smoking status: Never Passive exposure: Never Smokeless tobacco: Never Vaping Use Vaping status: Never Used Substance and Sexual Activity Alcohol use: Never Drug use: Never Sexual activity: Yes Partners: Female Other Topics Concern Not on file Social History Narrative Not on file Social Drivers of Health Financial Resource Strain: Low Risk (07/04/2024) Overall Financial Resource Strain (CARDIA) Difficulty of Paying Living Expenses: Not very hard Food Insecurity: No Food Insecurity (07/04/2024) Hunger Vital Sign Worried About Running Out of Food in the Last Year: Never true Ran Out of Food in the Last Year: Never true Transportation Needs: No Transportation Needs (07/04/2024) PRAPARE - Transportation Lack of Transportation (Medical): No Lack of Transportation (Non-Medical): No Physical Activity: Insufficiently Active (07/04/2024) Exercise Vital Sign Days of Exercise per Week: 1 day Minutes of Exercise per Session: 10 min Stress: Stress Concern Present (07/04/2024) [place] [employer] - Occupational Stress Questionnaire Feeling of Stress : To some extent Social Connections: Unknown (07/04/2024) Social Connection and Isolation Panel [NHANES] Frequency of Communication with Friends and Family: Once a week Frequency of Social Gatherings with Friends and Family: Once a week Attends Holiness Services: 1 to 4 times per year Active Member of Clubs or Organizations: No Attends Club or Organization Meetings: Never Marital Status: Patient declined Intimate Partner Violence: Not At Risk (07/04/2024) Humiliation, Afraid, Rape, and Kick questionnaire Fear of Current or Ex-Partner: No Emotionally Abused: No Physically Abused: No Sexually Abused: No Housing Stability: Low Risk (07/04/2024) Housing Stability Vital Sign Unable to Pay for Housing in the Last Year: No Number of Times Moved in the Last Year: 0 Homeless in the Last Year: No Family History: Family History Problem Relation Name Age of Onset Heart disease Father Heart disease Brother Medications Prior to Admission: No current facility-administered medications on file prior to encounter. Current Outpatient Medications on File Prior to Encounter Medication Sig Dispense Refill apixaban (Eliquis) 5 MG tablet Take 1 tablet (5 mg) by mouth 2 times daily. 60 tablet 2 cholecalciferol (Vitamin D-3) 50 MCG (2000 UT) tablet Take 2 tablets (4,000 Units) by mouth daily. 180 tablet 0 furosemide (Lasix) 40 MG tablet Take 1 tablet (40 mg) by mouth daily. 30 tablet 11 losartan (Cozaar) 50 MG tablet Take 1 tablet (50 mg) by mouth daily. 30 tablet 11 sodium bicarbonate 650 MG tablet Take 2 tablets (1,300 mg) by mouth 2 times daily. 360 tablet 0 [DISCONTINUED] apixaban (Eliquis) 5 MG tablet Take 2 tablets (10 mg) by mouth 2 times daily for 3 days, THEN 1 tablet (5 mg) 2 times daily. 60 tablet 3 [DISCONTINUED] carvedilol (Coreg) 25 MG tablet Take 1 tablet (25 mg) by mouth 2 times daily (with meals). 180 tablet 0 [DISCONTINUED] furosemide (Lasix) 20 MG tablet Take 1 tablet (20 mg) by mouth daily. 90 tablet 3 [DISCONTINUED] hydrALAZINE (Apresoline) 100 MG tablet Take 1 tablet (100 mg) by mouth 3 times daily. 270 tablet 3 [DISCONTINUED] isosorbide dinitrate (Isordil) 20 MG tablet Take 1.5 tablets (30 mg) by mouth 3 times daily. (Patient taking differently: Take 30 mg by mouth 3 times daily.) 270 tablet 0 [DISCONTINUED] losartan (Cozaar) 25 MG tablet Take 1 tablet (25 mg) by mouth daily. 30 tablet 11 Allergies: No Known Allergies REVIEW OF SYSTEMS: Constitutional: Negative for fever, chills, activity change and unexpected weight change. HEENT: Negative for congestion, postnasal drip and sneezing. Eyes: Negative for itching and visual disturbance. Respiratory: Negative for apnea, choking, chest tightness, positive for shortness of breath, cough Cardiovascular: Negative for chest pain. Gastrointestinal: Negative for nausea, vomiting, diarrhea and blood in stool. Positive for abdominal pain Genitourinary: Negative for dysuria, frequency and flank pain. Musculoskeletal: Negative for myalgias and joint swelling. Skin: Negative for rash. Neurological: Negative for dizziness, tremors, seizures, syncope, facial asymmetry, speech difficulty, weakness, numbness and headaches. Hematological: Negative for adenopathy. Psychiatric/Behavioral: Negative for suicidal ideas, behavioral problems, self- injury and dysphoricmood. Vitals: BP (!) 117/96 (BP Location: Right arm, Patient Position: Sitting) Pulse 99 Temp (!) 35.9 C (96.6 F) (Temporal) Resp 18 SpO2 100% BMI Classification: Pulse Ox: SpO2 Av.5 % Min: 99 % Max: 100 % Supplemental O2: PHYSICAL EXAM: Constitutional: General: Patient is not in acute distress. Appearance: Normal appearance. HENT: Head: Normocephalic and atraumatic. Right Ear: External ear normal. Left Ear: External ear normal. Mouth/Throat: Mouth: Mucous membranes are moist. Pharynx: Oropharynx is clear. Eyes: Extraocular Movements: Extraocular movements intact. Conjunctiva/sclera: Conjunctivae normal. Pupils: Pupils are equal, round, and reactive to light. Cardiovascular: Comments: Regular rate and rhythm, normal S1-S2, no murmurs noted. Radial pulses 2+ and symmetric. Pulmonary: Effort: Pulmonary effort is normal. No respiratory distress. Breath sounds: Normal breath sounds. No stridor. No wheezing or rhonchi. Abdominal: Comments: The abdomen is soft, nondistended and nontender. There is no rebound tenderness or guarding. Bowel sounds are normal. Skin: General: Skin is warm and dry. Capillary Refill: Capillary refill takes less than 2 seconds. Coloration: Skin is not jaundiced or pale. Findings: No bruising or erythema. Neurological: General: No focal deficit present. Mental Status: Patient is alert and oriented to person, place, and time. Mental status is at baseline. Cranial Nerves: No cranial nerve deficit. Sensory: No sensory deficit. Motor: No weakness. Coordination: Coordination normal. Psychiatric: Mood and Affect: Mood normal. Musculoskeletal: 1-2+ pitting pedal edema bilateral lower extremities DATA: CBC: Recent Labs 07/11/242024 WBC 8.4 RBC 4.71 HGB 15.5 HCT 48.4 MCV 102.8* RDW 14.0 PLT 270 BMP: Recent Labs 07/11/242024 NA 141 K 4.6 CL 106 CO2 20* BUN 30* CREATININE 1.70* GLUCOSE 97 CALCIUM 8.8 ANIONGAP 15* LIVER PROFILE: Recent Labs 07/11/242024 AST 75* ALT 134* BILITOT 2.2* ALKPHOS 213* PROT 6.4 PT/INR: No results for input(s): PROTIME, INR in the last 72 hours. CARDIAC ENZYMES: No results for input(s): TROPONINI in the last 72 hours. Procalcitonin: No results found for: PROCAL Urine Culture: No results found for this or any previous visit. COVID-19 PCR: No results for input(s): COVID19 in the last 72 hours. I reviewed: [x] laboratory results [x] radiographic results At the time of today's encounter. Pt was advised of the results. Data: (CAT1) Reviewed 3 or more labs/studies ordered by another provider not previously counted (each=1, panels count as 1). (LOW: 2x CAT1 or independent historian MOD: 3x CAT1 or 1x CAT3 EXTENSIVE: 3x CAT1 and 1x CAT3) Assessment Discussed management with the ED provider and agree with hospitalization. Acute, acute on chronic, unstable/uncontrolled chronic problems/diagnoses: Acute on chronic CHF exacerbation Nonischemic cardiomyopathy Transaminitis Shortness of breath Abdominal pain with possible mild ascites Stable chronic problems affecting care, new non-acute diagnoses: Chronic kidney disease stage IIIb Elevated transaminase Heart failure with reduced ejection fraction, 20% in May/2024. Moderate mitral regurgitation History of hypertension History of DVT History of hyperlipidemia Plan As a result of the above findings & factors, the following mgmt was pursued: -Plan to admit the patient to the telemetry floor Patient recently discharged from the hospital after treated with diuretics for volume overload. Will consult cardiology Monitor daily weight Monitor fluid intake and output Resume rest of medications from home Avoid hepatotoxic medication Monitor liver function panel Patient has been started on weight-based heparin with concern for non-ST elevation ND which will becontinued. Will hold off on the Eliquis - am labs, replace lytes prn - PT/OT/CM/SW - delirium precautions: increase activity and limit nighttime disturbances - DVT prophylaxis: encourage ambulation and already anticoagulated Complexity: Chronic illness with severe exacerbation, progression, or side effect of tx (HIGH). Acute illness with systemic symptoms (MOD). Risk: Admission to hospital-level care was considered or occurred (HIGH). Advance Directive: Prior Anticipated Discharge - Date - 07/14/24 - Location - Home with Home Health Care - Pending the following -treatment for volume overload Total time spent (which include face to face and non face to face encounters) : 55 minutes. Toxic drug monitoring/narrow therapeutic index drug monitoring : # Drug name : Heparin # Route administered : IV # Method of monitoring : CBC Extended Emergency Contact Information Primary Emergency Contact: Indira Medina Mobile Relation: Sister Secondary Emergency Contact: Kaitlin Hicks Mobile Relation: Significant Other [employer] Carlo Medina : 1980 Primary Care Physician: No primary care provider on file. The patient and/or family/surrogate voluntarily agreed to participate in ACP services. Patient s cognitive capacity: Alert, oriented x 3 Code Status: [x_] [FULL CODE - Continue all advanced life support: CPR,intubation,invasive procedures] [_] [DNR-CCA - DO NOT do CPR, intubation] [_] [DNR-STONE DRESSER - Comfort care only] [_] DNR form [was/was not] signed Summary of discussion: The patient health care POA/ surrogate is the following: Patient. . [Condition that instigated the ACP on this DOS, relevant PMH, functional status, goals of care, andwhom this was discussed with including names and relationship to the patient, and any relevant advance care documentation discussion] I answered all the patient/family questions that I could within the range and scope of the current medical situation. We discussed the medical conditions, risks, benefits, outcomes, and goals of careat this time for the patient's medical issues at hand in the face of the patient's chronic issues and current presentation. Total time spent: 5 minutes were spent discussing the patient's resuscitation status, advance care planning, and end of life care, with patient and/or family/surrogate. Rafa Samuel MD Division of Hospitalist Medicine [facility] [employer] documented in this [facility]01-12-2025 Emergency department Note* Yasmeen Petersen RN - 07/11/2024 7:22 PM EST TANK ERECTOR RN [facility] for [id number] Emergency department Triage note* Lorie Nguyen RN - 07/11/2024 5:20 PM EST Patient arrives to er with complaints of upper abd pain. States he was here last week and had to get diuretics, he had fluid retention. Endorses similar sx and increased weight. Pt weight Friday was 170lbs, today 174lbs. Denies any SOB [id number] Phys[facility] Emergency department Note* Donaldo Kenny MD - 07/11/2024 5:20 PM EST Emergency Department Encounter [facility] ED Patient: Carlo Medina : 1980 Date of Evaluation: 07/11/2024 ED Supervising Physician: Rayna Kenny MD I independently examined and evaluated Carlo Medina. THIS IS MY SUPERVISORY AND SHARED VISIT NOTE: I personally saw the patient and made/approved the management plan and take responsibility for the patient management. In brief, Carlo Medina is a 44 y.o. male that presents to the emergency department for cough, shortness of breath, abdominal pain. He states that his abdominal pain began yesterday and he gained 4 pounds over the past 3 days despite being compliant with his diuretics. He states that this feels like when he is fluid overloaded. He denies any chest pain. Focused exam: Patient resting comfortably but tachycardic. Lungs are clear to auscultation bilaterally. Brief ED course/MDM: EMERGENCY DEPARTMENT COURSE and DIFFERENTIAL DIAGNOSIS/MDM: Vitals: Vitals: 07/11/24 1726 BP: (!) 148/86 BP Location: Right arm Patient Position: Sitting Pulse: (!) 113 Resp: 18 Temp: (!) 35.9 C (96.6 F) TempSrc: Temporal SpO2: 99% The patient presented with a chief complaint of cough, shortness of breath, abdominal pain. The differential diagnosis associated with this patient's presentation includes but is not limited to: Presentation concerning for symptoms secondary to fluid overload versus ACS versus infectious etiology versus acute intra-abdominal process. Our workup consisted of ordering/reviewing: CBC, BMP, troponin, hepatic function panel, proBNP, chest x-ray, EKG, CT abdomen pelvis. I reviewed external records from: PDMP demonstrating no controlled substance prescriptions Patient care discussed with: admitting team, who has agreed to admit the patient Consideration for escalation of care with: Admission/observation . The patient requires hospitalization due to fluid overload refractory to diuretics at home, tachycardia Patient's care was impacted by history of CHF and multiple admissions due to CHF exacerbation The patient will be admitted The patient is in agreement with this plan. ED Medications managed: Medications furosemide (Lasix) injection 40 mg (has no administration in time range) CRITICAL CARE TIME None All diagnostic, treatment, and disposition decisions were made by myself in conjunction with the Resident or ISAAC. I also supervised reardon portions of any procedures performed by the Resident. For all further details of the patient's emergency department visit, please see their documentation. (Comment: Please note this report has been produced using speech recognition software and may contain errors related to that system including errors in grammar, punctuation, and spelling, as well as words and phrases that may be inappropriate. If there are any questions or concerns please feel freeto contact the dictating provider for clarification.) Rayna Kenny MD [employer] Donaldo Kenny MD 07/11/242036 [facility] Work Phone: [phone] 636-549601-08-2025 History of Present illness Narrative* Alex Zhang MD - 07/07/2024 1:00 PM EST [facility] Cardiology [facility] CARDIOLOGY - [address] [facility] [id number] Dept: [phone] Dept Visit type: Established : 1980 Chief Complaint: Chief Complaint Patient presents with Hospital Follow-up Cardiomyopathy History of Present Illness: Carlo Medina is a 44 y.o. male who is here in follow-up concerning his heart failure. He was discharged from the hospital on Friday and is here for an expedient and follow-up posthospitalization due to his high risk characteristics of multiple admissions for heart failure. He feels he is better overall. He likes the more simple medicine regimen. He continues to have intermittent abdominal pain and dyspnea on exertion but overall is stable. He states he is weighing himself at home and it has been steady. Past Medical History: Past Medical History: Diagnosis Date CHF (congestive heart failure) (HCC) CKD (chronic kidney disease) Hypercholesteremia Hypertension Past Surgical History Past Surgical History: Procedure Laterality Date CARDIAC CATHETERIZATION N/A 06/17/2024 Performed by Akilah Diaz MD at [facility] 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 Family History Family History Problem Relation Name Age of Onset Heart disease Father Heart disease Brother Social History Social History Tobacco Use Smoking status: Never Passive exposure: Never Smokeless tobacco: Never Vaping Use Vaping status: Never Used Substance Use Topics Alcohol use: Never Drug use: Never Allergies: No Known Allergies Medications: Current Outpatient Medications: apixaban (Eliquis) 5 MG tablet, Take 1 tablet (5 mg) by mouth 2 times daily., Disp: 60 tablet, Rfl:2 cholecalciferol (Vitamin D-3) 50 MCG (2000 UT) tablet, Take 2 tablets (4,000 Units) by mouth daily., Disp: 180 tablet, Rfl: 0 furosemide (Lasix) 40 MG tablet, Take 1 tablet (40 mg) by mouth daily., Disp: 30 tablet, Rfl: 11 sodium bicarbonate 650 MG tablet, Take 2 tablets (1,300 mg) by mouth 2 times daily., Disp: 360 tablet, Rfl: 0 losartan (Cozaar) 50 MG tablet, Take 1 tablet (50 mg) by mouth daily., Disp: 30 tablet, Rfl: 11 Review of Systems: Review of Systems Constitutional: Negative for activity change, chills, diaphoresis, fatigue and fever. HENT: Negative for nosebleeds and trouble swallowing. Eyes: Negative for discharge and visual disturbance. Respiratory: Negative for apnea, cough, chest tightness, shortness of breath and wheezing. Cardiovascular: Positive for leg swelling. Negative for chest pain and palpitations. Gastrointestinal: Negative for abdominal distention, abdominal pain, blood in stool, diarrhea, nausea and vomiting. Endocrine: Negative for cold intolerance and heat intolerance. Genitourinary: Negative for hematuria. Musculoskeletal: Negative for gait problem and myalgias. Skin: Negative for color change and rash. Neurological: Negative for dizziness, seizures, syncope, facial asymmetry, speech difficulty, weakness, light-headedness, numbness and headaches. Hematological: Does not bruise/bleed easily. Psychiatric/Behavioral: Negative for dysphoric mood. Physical Examination: Vitals: Vitals: 07/07/24 1257 BP: 106/88 BP Location: Left arm Patient Position: Sitting BP Cuff Size: Adult Pulse: (!) 112 SpO2: 94% Weight: 177 lb 6.4 oz (80.5 kg) Height: 6' 1 (1.854 m) Body mass index is 23.41 kg/m . Physical Exam Constitutional: Appearance: Normal appearance. HENT: Head: Normocephalic and atraumatic. Nose: Nose normal. Eyes: General: No scleral icterus. Extraocular Movements: Extraocular movements intact. Pupils: Pupils are equal, round, and reactive to light. Neck: Thyroid: No thyromegaly. Vascular: JVD present. No carotid bruit. Cardiovascular: Rate and Rhythm: Normal rate and regular rhythm. Pulses: Normal pulses. Heart sounds: No murmur heard. Gallop present. S3 and S4 sounds present. Pulmonary: Effort: Pulmonary effort is normal. Breath sounds: No wheezing, rhonchi or rales. Chest: Chest wall: No tenderness. Abdominal: General: Abdomen is flat. There is no distension. Palpations: Abdomen is soft. There is no hepatomegaly, splenomegaly or mass. Musculoskeletal: General: No swelling or tenderness. Normal range of motion. Cervical back: No tenderness. Right lower le+ Pitting Edema present. Left lower le+ Pitting Edema present. Skin: General: Skin is warm. Neurological: General: No focal deficit present. Mental Status: He is alert and oriented to person, place, and time. Cranial Nerves: Cranial nerves 2-12 are intact. No cranial nerve deficit. Psychiatric: Attention and Perception: Attention normal. Mood and Affect: Mood normal. Speech: Speech normal. Behavior: Behavior normal. Laboratory Tests: Lab Results Component Value Date WBC 8.6 07/04/2024 HGB 14.3 07/04/2024 HCT 45.1 07/04/2024 MCV 103.9 (H) 07/04/2024 PLT 239 07/04/2024 Lab Results Component Value Date GLUCOSE 109 (H) 07/04/2024 CALCIUM 8.2 (L) 07/04/2024 NA 134 (L) 07/04/2024 K 3.5 07/04/2024 CO2 25 07/04/2024 CL 103 07/04/2024 BUN 36 (H) 07/04/2024 CREATININE 2.18 (H) 07/04/2024 @LASTCMP@ Lab Results Component Value Date CHOL 130 06/14/2024 CHOL 172 02/29/2024 Lab Results Component Value Date TRIG 68 06/14/2024 TRIG 88 02/29/2024 Lab Results Component Value Date HDL 16 (L) 06/14/2024 HDL 28 (L) 02/29/2024 Lab Results Component Value Date LDLCALC 100 (H) 06/14/2024 LDLCALC 126 (H) 02/29/2024 NT PRO BNP Date Value Ref Range Status 07/03/2024 21,849 (H) <125 pg/mL Final Assessment and Plan: 1. Acute systolic heart failure (HCC) 2. Essential hypertension 3. Chronic systolic heart failure (HCC) 4. Chronic kidney disease, unspecified CKD stage 1. Congestive heart failure: He has severe left ventricular dysfunction with a dilated nonischemic cardiomyopathy. It is felt to possibly be hereditary. He has had multiple admissions in the last fewmonths. He denies orthopnea or PND currently but quickly will decompensate. At this point I recommend we slowly uptitrate his losartan. I will increase this to 50 mg and we will get a BMP next week. Will have him back in 2 weeks and at that point we will likely reintroduce low-dose beta-jerome. Once we have his medicines titrated we will have him go back to the heart failure clinic to further discuss advanced therapies. His significant other understands how sick he is. The patient does not have a good understanding of this. 2. Chronic kidney disease: We will have to follow this closely with titrating his medicines. 3. Abdominal pain: This is likely related to low cardiac output. 4. History of DVT on apixaban. documented [facility] [id number] Nurse Note* Anshul Hadley RN - 07/05/2024 1:59 PM EST Pt DC instructions reviewed, pt verbalized understanding, pt has home medication, no medications filled during this admission, reviewed the changes made to pt home medications, pt states that he understands this. Provided printed information regarding changes. Reviewed follow up appointments with pt, verbalized understanding. Pt taken with RN in off unit, pt taken to berry picker area, pt girlfriend present to take pt home, reviewed DC information again, verbalized understanding. VSS. No needs identified. [id number] Nurse Note* Anshul Hadley RN - 07/05/2024 1:59 PM EST Pt DC instructions reviewed, pt verbalized understanding, pt has home medication, no medications filled during this admission, reviewed the changes made to pt home medications, pt states that he understands this. Provided printed information regarding changes. Reviewed follow up appointments with pt, verbalized understanding. Pt taken with RN in off unit, pt taken to berry picker area, pt girlfriend present to take pt home, reviewed DC information again, verbalized understanding. VSS. No needs identified. documented in this [facility]01-06-2025 Note* Care Coordination - Stella Michel RN - 07/05/2024 10:54 AM EST Patient admitted to CTV ICU with SCHUYLER on CKD and heart failure. Chart reviewed. Patient from home, has health insurance but no PCP, but did follow up with cardiology after recent discharge. No discharge needs anticipated. [id number] Note* Care Coordination - Stella Michel RN - 07/05/2024 10:54 AM EST Patient admitted to [facility] ICU with SCHUYLER on CKD and heart failure. Chart reviewed. Patient from home, has health insurance but no PCP, but did follow up with cardiology after recent discharge. No discharge needs anticipated. [id number] Miscellaneous Notes* Care Coordination - Stella Michel RN - 07/05/2024 10:54 AM EST Patient admitted to CTV ICU with SCHUYLER on CKD and heart failure. Chart reviewed. Patient from home, has health insurance but no PCP, but did follow up with cardiology after recent discharge. No discharge needs anticipated. documented in this [facility]01-06-2025 [facility] 07-05-2024 Hospital course Narrative* Shun Craig MD - 07/05/2024 10:51 AM EST Images from the original note were not included. [facility] [place] [facility] CCU DISCHARGE SUMMARY Patient Name: Carlo Medina : 1980 Admit Date: 07/03/2024 Discharge Date: 07/05/24 PCP: No primary care provider on file. Visit Status: Admission Code Status: Full Code Discharge Diagnoses: SOB 2/2 Acute Exacerbation of HFrEF (EF 20% with Severe Global Hypokinesis) Non-Ischemic Cardiomyopathy Hypertension Hyperlipidemia SCHUYLER on CKD Stage 3 Mild Transaminitis with Abdominal Ascites Hospital Course: Carlo Medina is a 44 y.o. male with PMH HFrEF(20% 05/2024), moderate mitral regurg, CKD 3b, HTN, DVT, and HLD that presented to [facility] on 07/03/2024 from outside facility ([facility] ED) due to shortness of breath. Pt reports around 0700 he awoke with shortness of breath and abd pain. States it felt as if hecould not take a deep breath. Pt notes this has occurred in the past and felt similar to when he was admitted to [facility] in 2023. At that time he was found to have EF reduced from 30 to 20%. Pt had been complaining of abd pain at that time as well. It resolved with diuresis. Pt notes he was not tolerating the torsemide as it made him feel fatigued. Was not taking it due to this. He also reports he was taking his isordil BID instead of TID. Notes he started furosemide 20mg 2 days ago. Pt was transferred to [facility] due to concern for cardiogenic shock by ED. Lactic noted to be 2.2. Cr 2.01 (baseline 1.5). BNP 21k. RUQ US showed ascites and some pericholecystic free fluid. Gallbladder was not distended. No findings of gallstones. Over the past 2 days, our team did start the patient on IV Lasix 80 mg BID and he responded quite well with Diuresis. His symptoms did improve and he did feel overall well. We were also able to take the patient off of Nipride gtt. Our team did educate the patient extensively on trying to stay in the hospital to help his extremely weak heart however patient made an informed decision to be discharged home. We will be sending home with a simplified medication regimen and close follow up with the Heart Failure Outpatient Clinic. Procedures Performed: Cardiac Catheterization (Date: 06/17/[address] Diaz): No significant epicardial coronary artery disease Milldy elevated right heart pressures: RA 7 mmHg, mean PA pressure 27 mmHg Elevated PCWP ~ 23mmHg, and LVEDP ~ 25 mmHg Decreased cardiac output/index. By Rodney, output: 3/0 L/min index 1.5: By thermodilution, output: 3.1 L/min index: SVR ~ 2200 Echocardiogram (Type: TTE Date: 06/15/2024): Left Ventricle: Left ventricle is dilated. Mildly increased wall thickness. Severely reduced left ventricular systolic function. EF by 2D Simpsons Biplane is 20%. Global longitudinal strain is reduced with a value of -5.0%. Severe global hypokinesis present. Right Ventricle: Right ventricle is dilated. Moderately reduced systolic function. Aortic Valve: Mild (1+) regurgitation. Mitral Valve: Moderate (2+) regurgitation with an eccentrically directed jet and and may underestimate severity. Tricuspid Valve: Moderately elevated RVSP. RVSP is 46 mmHg. Pericardium: Small (<1 cm) pericardial effusion present. Findings do not support cardiac tamponade. IVC/Hepatic Veins: IVC diameter is dilated and decreases less than 50% during inspiration; therefore the estimated right atrial pressure is elevated (~15 mmHg). Slow blood flow, echogenic. Discharge Medications: Current Outpatient Medications Medication Instructions apixaban (Eliquis) 5 MG tablet Take 2 tablets (10 mg) by mouth 2 times daily for 3 days, THEN 1 tablet (5 mg) 2 times daily. apixaban (ELIQUIS) 5 mg, Oral, 2 times daily carvedilol (COREG) 25 mg, Oral, 2 times daily with meals cholecalciferol (VITAMIN D-3) 4,000 Units, Oral, Daily furosemide (LASIX) 20 mg, Oral, Daily [START ON 07/06/2024] furosemide (LASIX) 40 mg, Oral, Daily hydrALAZINE (APRESOLINE) 100 mg, Oral, 3 times daily isosorbide dinitrate (ISORDIL) 30 mg, Oral, 3 times daily [START ON 07/06/2024] losartan (COZAAR) 25 mg, Oral, Daily sodium bicarbonate 1,300 mg, Oral, 2 times daily Notable Medication Changes & Reasoning: [place] Simplified Medication Regimen to help with Patient Compliance: - Eliquis 5 mg BID for DVT - Lasix 40 mg PO daily - Losartan 25 mg daily - Stopping other medications as follows: Coreg 25 mg BID, Hydralazine 100 mg TID, Isordil 30 mg TID AMI/PCI Registry Information: Aspirin: No, not medically indicated P2Y12 Inhibitors: No, not medically indicated High-Intensity Statin: No, not medically indicated Beta Jerome: No, since we want to have simplest medical regimen for him ACEi/ARB/ARNI: Yes Aldosterone Antagonist for EF < 40%: No, other: please specify: simplify medication regimen withdifficult pill compliance Cardiac Rehab: Will place referral for patient given low EF BMI: Body mass index is 22.48 kg/m . Diet: Adult diet Regular; No Added Salt (3-4 gm); 1500 ml Activity: Please refer to home going instructions. Disposition: Home Recommended Follow Up Appointment(s): Future Appointments Date Time Provider Department Center 07/07/2024 1:00 PM Alex Zhang MD [facility] [place] 08/30/2024 11:00 AM [facility] ECHO 1 SB NON-INVA SB Imaging 09/10/2024 11:00 AM Morgan Ulloa APRN - WHITING MACHINE OPERATOR [facility] MG CV [place] Cosigned by Ab Coppola MD at 07/05/2024 4:35 PM EST Associated attestation - Ab Coppola MD - 07/05/2024 4:35 PM EST I personally saw and evaluated this patient prior to discharge. I examined the patient, reviewed the meds and the follow-up information. I was personally involved in, and initiated the medical therapy to be used at discharge and the follow-up to be done. Ab Coppola MD, PhD Advanced Heart Failure Cardiology [facility] Heart and V[facility] [place] 4:35 PM 07/05/24 documented in this [facility]01-06-2025 History of Present illness Narrative* Ana Salter - 07/05/2024 10:50 AM EST Nutrition rescreen completed. Chart reviewed. Patient to be monitored and followed by the diet industrial engineering technician. * Lucrecia Pantoja, PT - 07/05/2024 10:13 AM EST Images from the original note were not included. PHYSICAL THERAPY [facility] Initial Evaluation Name/MRN: Carlo Medina ([id number]) Evaluation Date: 07/05/2024 Date of : 1980 Admission Date: 07/03/2024 8:56 AM Age: 44 y.o. Room/Bed: T1-112/T1-112 A Discharge Recommendation: Home with assist PRN Equipment Needed: No Assessment IMPRESSION: Pt ambulated functional distance without device. Noted gait deviation but no overt LOB.Anticipate discharge to home with assist as needed. No acute PT needed, will sign off. Admitting Diagnosis: Transaminitis, CHF, SCHUYLER Prognosis: good Performance Deficits /Impairments: N/A Decision Making: Low Complexity Subjective Pt in bed, agree with PT treatment. RN cleared for PT. Pain: Pt denies any current pain. Past Medical History: Past Medical History: Diagnosis Date CHF (congestive heart failure) (HCC) CKD (chronic kidney disease) Hypercholesteremia Hypertension Past Surgical History: Past Surgical History: Procedure Laterality Date CARDIAC CATHETERIZATION N/A 06/17/2024 Performed by Akilah Diaz MD at [facility] 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 Admission Diagnosis: Patient Active Problem List Diagnosis Date Noted Acute kidney injury superimposed on CKD (HCC) (HCC) 07/03/2024 Noncompliance 06/19/2024 History of left bundle branch block (LBBB) 06/19/2024 Sinus tachycardia 06/19/2024 Acute HFrEF (heart failure with reduced ejection fraction) ([facility]) 06/13/2024 Essential hypertension 06/08/2024 Elevated liver enzymes 06/08/2024 CKD (chronic kidney disease) 06/08/2024 Moderate malnutrition (CMS/HCC) ([facility]) 05/29/2024 Metabolic acidosis 05/28/2024 Pulmonary vascular congestion 04/28/2024 HFrEF (heart failure with reduced ejection fraction) ([facility]) 04/28/2024 Shortness of breath 02/28/2024 Leg swelling 06/13/2024 Medical Precautions: No active isolations Proper PPE donned/doffed in accordance with facility standards. Fall Risk: [place] Fall Risk Score: 35 (Medium Risk) Precautions/Restrictions: Lines/Drains/Airways: tele Family/Caregiver Present: none Overall Cognitive Status: WNL Overall Orientation Status: Oriented x4 Vision: not assessed this session Hearing: normal Social/Functional History Patient admitted from home. Lives With: Significant Other Type of Home: single family home Home Layout: Single Level Home Home Access: Bathroom Shower/Tub: Toilet: N/A Home Equipment: none Homemaking Responsibilities: Independent Receives Help From: None Active Real Estate Representative: N/A Prior Level of Function Prior Level of ADL Function: Independent Prior Level of Mobility: Independent; Device: None Prior Level of Transfers: Independent Objective Lower Extremity Assessment AROM: WNL PROM: WNL Strength: WFL Sensation: WNL Balance: Balance During Session: Posture: fair Sitting - Static: Independent Sitting - Dynamic: Independent Standing - Static: Independent Standing - Dynamic: Independent Bed Mobility: Supine to sit: Independent Scooting: Independent Transfers Sit to stand: Independent Stand to sit: Independent Stand pivot: Independent Ambulation Ambulation 1 Assistive device(s) used: None Assist level: Modified Independent Distance (ft): 250 Quality of gait: slow noah Heart Failure on Admission Dyspnea: No Heart failure diagnosis: Yes Outcome Measures AM-PAC How much HELP from another person do you currently need Turning from your back to your side while in a flat bed without using bedrails?: None Moving from lying on your back to sitting on the side of a flat bed without using bedrails?: None Moving to and from a bed to a chair (including a wheelchair)?: None Standing up from a chair using your arms (wheelchair or bedside chair)?: None Walking in a hospital room?: None Stair climbing assessed?: No AM-PAC Inpatient Mobility Raw Score (No Stairs) : 20 JH-HLM JH-HLM Score: Walked 250 ft or more (i.e. several laps on unit) Plan No skilled acute PT indicated at this time. Please reconsult should changes occur. Safety/Education Safety Safety Devices in place: call light within reach, left in bed, nurse notified, and no alarms engaged upon entry Restraints: No Education Education Given To: patient Education Provided: PT Role Education Method: Verbal Barriers to Learning: None Education Outcome: Verbalized Understanding Goals Patient Stated Goal: To go home. Encounter Problems Encounter Problems (Active) Pain - Adult Therapy Time Individual Co-Treatment Co-Evaluation Time In 1004 Time Out 1012 Minutes 8 Lucrecia Pantoja PT Patient's Physical Therapy Plan of Care supervision is transferred to a [facility] Physical Therapist. Goals and/or treatment plan was established in collaboration with patient/family/other representatives. * Roopa Lugo DO - 07/05/2024 5:59 AM EST Images from the original note were not included. [facility] [place] [facility] CCU PROGRESS NOTE Patient Name: Carlo Medina : 1980 Subjective: Hospital course: Carlo Medina is a 44 y.o. male with PMH HFrEF(20% 05/2024), moderate mitral regurg, CKD 3b, HTN, DVT, and HLD that presented to [facility] on 07/03/2024 from outside facility ([facility]) due to shortness of breath. Pt reports around 0700 he awoke with shortness of breath and abd pain. Statesit felt as if he could not take a deep breath. Pt notes this has occurred in the past and felt similar to when he was admitted to [facility] in 2023. At that time he was found to have EF reduced from 30 to 20%. Pt had been complaining of abd pain at that time as well. It resolved with diuresis. Pt notes he was not tolerating the torsemide as it made him feel fatigued. Was not taking it due to this.He also reports he was taking his isordil BID instead of TID. Notes he started furosemide 20mg 2 days ago. Pt was transferred to [facility] due to concern for cardiogenic shock by ED. Lactic noted to be 2.2. Cr 2.01 (baseline 1.5). BNP 21k. RUQ US showed ascites and some pericholecystic free fluid. Gallbladder was not distended. No findings of gallstones. Interval History: Patient refused nipride gtt overnight and morning labs resulting in persistently greater MAP than recommended. Patient refused labs this morning as well and I spoke extensively withthe patient on the need for daily labs as part of treatment. He denied chest pain, SOB but endorsedimproved intermittent abdominal and lower extremity swelling. Review of Systems: Review of Systems Constitutional: Negative for chills and fever. HENT: Negative. Respiratory: Negative. Negative for shortness of breath. Cardiovascular: Positive for leg swelling. Negative for chest pain and palpitations. Gastrointestinal: Positive for abdominal pain (intermittent however improved). Genitourinary: Negative. Musculoskeletal: Negative. Neurological: Negative. Psychiatric/Behavioral: Negative. Inpatient Medications: Scheduled Meds:apixaban, 5 mg, Oral, BID cholecalciferol, 4,000 Units, Oral, Daily furosemide, 80 mg, IntraVENous, BID hydrALAZINE, 100 mg, Oral, TID isosorbide dinitrate, 40 mg, Oral, TID mupirocin, 1 Application, Nasal, BID sodium bicarbonate, 1,300 mg, Oral, BID Continuous Infusions:nitroprusside, 0.3-3 mcg/kg/min, Last Rate: Stopped (07/04/241950) PRN Meds used in the last 24hr: Tylenol x 1 Objective: Physical Examination: BP 130/98 Pulse 101 Temp 36.2 C (97.1 F) (Temporal) Resp 16 Ht 1.854 m (6' 1) Wt 80 kg (176 lb 5.9 oz) SpO2 92% BMI 23.27 kg/m Intake/Output Summary (Last 24 hours) at 07/05/2024 0600 Last data filed at 07/05/2024 0438 Gross per 24 hour Intake 1701 ml Output 5325 ml Net -3624 ml Physical Exam Constitutional: General: He is not in acute distress. Appearance: He is not ill-appearing. Eyes: General: No scleral icterus. Cardiovascular: Rate and Rhythm: Regular rhythm. Tachycardia present. Pulses: Normal pulses. Heart sounds: No murmur heard. Pulmonary: Effort: Pulmonary effort is normal. No respiratory distress. Breath sounds: Normal breath sounds. No wheezing. Abdominal: General: There is no distension. Palpations: Abdomen is soft. Tenderness: There is no abdominal tenderness. Musculoskeletal: Cervical back: Normal range of motion. Right lower leg: Edema present. Left lower leg: Edema present. Skin: Capillary Refill: Capillary refill takes less than 2 seconds. Neurological: General: No focal deficit present. Mental Status: He is alert and oriented to person, place, and time. Mental status is at baseline. Motor: No weakness. Psychiatric: Mood and Affect: Mood normal. Behavior: Behavior normal. Pertinent Labs: BMP: Lab Results Component Value Date NA 134 (L) 07/04/2024 K 3.5 07/04/2024 CL 103 07/04/2024 CO2 25 07/04/2024 BUN 36 (H) 07/04/2024 CREATININE 2.18 (H) 07/04/2024 GLUCOSE 109 (H) 07/04/2024 CALCIUM 8.2 (L) 07/04/2024 MG 2.0 07/04/2024 PHOS 4.7 (H) 05/30/2024 CBC: Lab Results Component Value Date WBC 8.6 07/04/2024 HGB 14.3 07/04/2024 HCT 45.1 07/04/2024 MCV 103.9 (H) 07/04/2024 PLT 239 07/04/2024 Cardiac profile: TROPONIN I Date Value Ref Range Status 05/28/2024 0.037 (H) <0.034 ng/mL Final 05/28/2024 0.051 (H) <0.034 ng/mL Final 04/28/2024 0.032 <0.034 ng/mL Final 04/28/2024 0.025 <0.034 ng/mL Final 04/28/2024 0.020 <0.034 ng/mL Final 03/05/2024 0.019 <0.034 ng/mL Final 02/29/2024 0.026 <0.034 ng/mL Final 02/28/2024 0.019 <0.034 ng/mL Final 02/28/2024 0.019 <0.034 ng/mL Final Coagulation: No results found for: INR, PTT Lipid panel: Lab Results Component Value Date CHOL 130 06/14/2024 HDL 16 (L) 06/14/2024 TRIG 68 06/14/2024 Other: Lab Results Component Value Date HGBA1C 5.0 03/01/2024 TSH 1.52 06/15/2024 Chest Imaging: CXR: === 07/03/24 === XR CHEST 1 VIEW - Impression - FINDINGS AND IMPRESSION: SUPPORT DEVICES: None OSSEOUS STRUCTURES: Degenerative changes in the thoracic spine. HEART AND MEDIASTINUM: The cardiomediastinal silhouette appears unchanged from the prior exam. LUNGS AND PLEURA: There is pulmonary venous congestion, but without luz maria pulmonary edema. No consolidation. No sizable pleural effusion. Report Dictated on Electronically Signed By: Shane Galarza MD Electronically Signed Date/Time: 07/03/2024 10:08 AM EST Cardiac Studies: Telemetry findings reviewed: Sinus tach ECG: Encounter Date: 07/03/24 ECG 12 lead Result Value Heart Rate 113 QRSD Interval 97 QT Interval 350 QTC Interval 480 P [place] 60 QRS [place] -24 T Wave [place] 89 IN Interval 153 Impression Incomplete analysis due to missing data in precordial lead(s) Sinus tachycardia Left atrial enlargement Left ventricular hypertrophy Nonspecific T abnormalities, lateral leads Borderline prolonged QT interval Electronically Signed On 07-03-2024 20:41:11 EST by Cornelio Joseph Echo: 06/13/24 TRANSTHORACIC ECHOCARDIOGRAM (TTE) COMPLETE (CONTRAST/BUBBLE/3D PRN) 06/15/2024 1:59 PM (Final) Interpretation Summary Left Ventricle: Left ventricle is dilated. Mildly increased wall thickness. Severely reduced left ventricular systolic function. EF by 2D Simpsons Biplane is 20%. Global longitudinal strain is reduced with a value of -5.0%. Severe global hypokinesis present. Right Ventricle: Right ventricle is dilated. Moderately reduced systolic function. Aortic Valve: Mild (1+) regurgitation. Mitral Valve: Moderate (2+) regurgitation with an eccentrically directed jet and and may underestimate severity. Tricuspid Valve: Moderately elevated RVSP. RVSP is 46 mmHg. Pericardium: Small (<1 cm) pericardial effusion present. Findings do not support cardiac tamponade. IVC/Hepatic Veins: IVC diameter is dilated and decreases less than 50% during inspiration; therefore the estimated right atrial pressure is elevated (~15 mmHg). Slow blood flow, echogenic. Signed by: Ofelia Villalobos on 06/15/2024 1:59 PM Cath Report: 06/13/24 CARDIAC PROCEDURE 06/17/2024 11:14 AM (Final) Conclusion No significant epicardial coronary artery disease Milldy elevated right heart pressures: RA 7 mmHg, mean PA pressure 27 mmHg Elevated PCWP ~ 23mmHg, and LVEDP ~ 25 mmHg Decreased cardiac output/index. By Rodney, output: 3/0 L/min index 1.5: By thermodilution, output: 3.1 L/min index: SVR ~ 2200 Signed by: Akilah Diaz on 06/17/2024 11:14 AM Assessment/Plan HF NYHA Class [] I [] II [] III [x] IV []Unable to assess [] N/A SOB 2/2 Acute exacerbation of HFrEF Non-ischemic cardiomyopathy HTN HLD - TTE on 06/14/24 showed LVEF 20 % with severe global hypokinesis - LHC on 06/17/24 showed decreased cardiac output 3 L/min and decreased index 1.5 -Currently on room air and saturating at 95% -Lasix 80 mg given with urine output of -3624 ml in the last 24 hrs - Refused morning labs and overnight nipride gtt - Care has been complicated due to his lack of cooperation Plan -Hydralazine 100 mg TID discontinued -Isordil 40 mg TID discontinued -Strict I/Os daily and fluid restriction 1500 ml -Continuous education on the need to be compliant with medical regimen - Losartan 25 mg started today - Lasix 40 mg daily SCHUYLER on CKD 3 --> stable -Baseline Cr 0.72-1.25 -BUN 36 Cr 2.18 grossly unchanged from yesterday -FeUrea 30.9 likely prerenal Plan -Will continue to monitor kidney function Transminitis Abdominal acites -CT A/P showed mild ascites. No evidence of cholecystitis -Improved abdominal pain with diuresis Plan -Continue monitoring LFTs Hx of DVT to Rt popliteal, soleal and peroneal Hx of DVT to Lt peroneal Continue home Eliquis 5mg BID - Goals of Care: Full Code - DVT Prophylaxis: Eliquis - GI Prophylaxis: - Diet: Regular no salt - BMI Classification: Body mass index is 23.27 kg/m . - Disposition: Transfer to [facility] / Telemetry. Cosigned by Ab Coppola MD at 07/05/2024 4:34 PM EST Associated attestation - Ab Coppola MD - 07/05/2024 4:34 PM EST I, Dr. Ab Coppola, saw and evaluated the patient on 07/05/24 in T1/ A. I personally obtained the reardon and critical portions of the history and physical exam. I reviewed the labs, imaging studies, and electronic medical record. I reviewed the Clinical Training Specialist's documentation, and discussed the patient with the Clinical Training Specialist. I agree with the Clinical Training Specialist's medical decision making and have edited the note to reflect my clinical findings and my assessment and plan. In summary, Mr. Medina is a 44 year old man with a history of moderate MR, HFrEF from [facility], EF 20%, CKD stage III, hypertension, who prsented to [facility] with shortness of breath and abdominal pain with concern for low output heart failure. He is a patient of Dr. Zhang. I reviewed his transthoracic echo cardiogram which shows left ventricular ejection fraction at most 15 to 20% with moderate MR. Overnight creatinine is 2.2 up from a baseline of about 1.7. His last cardiac index was adequate, but this was on sodium nitroprusside which has since been stopped. Urine output yesterday was 5 L total. [place] received a central line or a [place]. Today I spoke to him about the fact that his presentation was likely that of low output heart failure with some endorgan dysfunction, and low-level lactate. His symptoms is largely improved with improved abdominal pain, and shortness of breath that is only mild. He is insistent on going home, and furthermore insistent that he will not have an IV any further, and he does not want to have any further blood draws. I explained that in the absence of my ability to give IV medications and blood draws, there is not much more that I can offer. We will place him on furosemide and losartan, holding on beta-jerome due to potential low output heart failure, holding on MRA secondary to unclear follow-up, and holding on SGLT2 inhibitor for the same reason. If he decides to return I would like to put Shae in for further assessment and treatment, if he is agreeable. In the absence of our ability to do anything for him, I have agreed to discharge him. Ab Coppola MD, PhD Advanced Heart Failure Cardiology [facility] [place] 4:32 PM 07/05/24 * Cat Duque DO - 07/04/2024 10:39 PM EST Patient's MAPs have been persistently greater than recommended goal since refusing nitroprusside gtt. Patient was educated by cardiac ICU team in great detail the importance of initiating nitroprusside gtt to decrease cardiac afterload for optimal treatment. Patient continues to refuse the medication. Will continue to PO medications, management options limited by patient refusal and cooperation. * Ofelia Villalobos MD - 07/04/2024 6:29 AM EST Images from the original note were not included. [facility] CCU PROGRESS NOTE Patient Name: Carlo Medina : 1980 Subjective: Hospital course: Carlo Medina is a 44 y.o. male with PMH HFrEF(20% 05/2024), moderate mitral regurg, CKD 3b, HTN, DVT, and HLD that presented to [facility] on 07/03/2024 from outside facility ([facility]) due to shortness of breath. Pt reports around 0700 he awoke with shortness of breath and abd pain. Statesit felt as if he could not take a deep breath. Pt notes this has occurred in the past and felt similar to when he was admitted to [facility] in 2023. At that time he was found to have EF reduced from 30 to 20%. Pt had been complaining of abd pain at that time as well. It resolved with diuresis. Pt notes he was not tolerating the torsemide as it made him feel fatigued. Was not taking it due to this.He also reports he was taking his isordil BID instead of TID. Notes he started furosemide 20mg 2 days ago. Pt was transferred to [facility] due to concern for cardiogenic shock by ED. Lactic noted to be 2.2. Cr 2.01 (baseline 1.5). BNP 21k. RUQ US showed ascites and some pericholecystic free fluid. Gallbladder was not distended. No findings of gallstones. Interval History: No acute events overnight. He was resting comfortably in bed in no acute distress. Patient reports much improved SOB and general symptoms as compared to admission. He denies chest pain but endorses mild SOB, improved abdominal pain, B/L edema. Review of Systems: Review of Systems Constitutional: Negative for chills and fever. HENT: Negative for congestion. Respiratory: Positive for shortness of breath (mild). Cardiovascular: Positive for leg swelling. Negative for chest pain and palpitations. Gastrointestinal: Negative for abdominal pain (improved). Genitourinary: Negative. Musculoskeletal: Negative. Skin: Negative. Neurological: Negative. Psychiatric/Behavioral: Negative. Inpatient Medications: Scheduled Meds:apixaban, 5 mg, Oral, BID [Held by provider] carvedilol, 25 mg, Oral, BID WC cholecalciferol, 4,000 Units, Oral, Daily hydrALAZINE, 100 mg, Oral, TID isosorbide dinitrate, 30 mg, Oral, TID mupirocin, 1 Application, Nasal, BID sodium bicarbonate, 1,300 mg, Oral, BID Continuous Infusions: PRN Meds used in the last 24hr: none Objective: Physical Examination: BP 105/91 Pulse 98 Temp 36.7 C (98 F) (Temporal) Resp 16 Ht 1.854 m (6' 1) Wt 82.2 kg (181 lb 3.5 oz) SpO2 100% BMI 23.91 kg/m Intake/Output Summary (Last 24 hours) at 07/04/2024 0697 Last data filed at 07/04/2024 0530 Gross per 24 hour Intake 525 ml Output 1750 ml Net -1225 ml Physical Exam Constitutional: General: He is not in acute distress. Appearance: He is not ill-appearing. Eyes: General: Right eye: No discharge. Left eye: No discharge. Cardiovascular: Rate and Rhythm: Normal rate and regular rhythm. Pulses: Normal pulses. Heart sounds: Normal heart sounds. No murmur heard. Pulmonary: Effort: Pulmonary effort is normal. No respiratory distress. Breath sounds: Normal breath sounds. No wheezing. Abdominal: Palpations: Abdomen is soft. Tenderness: There is no abdominal tenderness. Musculoskeletal: Right lower leg: Edema present. Left lower leg: Edema present. Skin: Capillary Refill: Capillary refill takes less than 2 seconds. Neurological: Mental Status: He is oriented to person, place, and time. Mental status is at baseline. Motor: No weakness. Psychiatric: Mood and Affect: Mood normal. Behavior: Behavior normal. Pertinent Labs: BMP: Lab Results Component Value Date NA 135 (L) 07/04/2024 K 4.3 07/04/2024 CL 106 07/04/2024 CO2 20 (L) 07/04/2024 BUN 36 (H) 07/04/2024 CREATININE 2.12 (H) 07/04/2024 GLUCOSE 95 07/04/2024 CALCIUM 8.0 (L) 07/04/2024 MG 2.1 06/20/2024 PHOS 4.7 (H) 05/30/2024 CBC: Lab Results Component Value Date WBC 8.6 07/04/2024 HGB 14.3 07/04/2024 HCT 45.1 07/04/2024 MCV 103.9 (H) 07/04/2024 PLT 239 07/04/2024 Cardiac profile: TROPONIN I Date Value Ref Range Status 05/28/2024 0.037 (H) <0.034 ng/mL Final 05/28/2024 0.051 (H) <0.034 ng/mL Final 04/28/2024 0.032 <0.034 ng/mL Final 04/28/2024 0.025 <0.034 ng/mL Final 04/28/2024 0.020 <0.034 ng/mL Final 03/05/2024 0.019 <0.034 ng/mL Final 02/29/2024 0.026 <0.034 ng/mL Final 02/28/2024 0.019 <0.034 ng/mL Final 02/28/2024 0.019 <0.034 ng/mL Final Coagulation: No results found for: INR, PTT Lipid panel: Lab Results Component Value Date CHOL 130 06/14/2024 HDL 16 (L) 06/14/2024 TRIG 68 06/14/2024 Other: Lab Results Component Value Date HGBA1C 5.0 03/01/2024 TSH 1.52 06/15/2024 Chest Imaging: CXR: === 07/03/24 === XR CHEST 1 VIEW - Impression - FINDINGS AND IMPRESSION: SUPPORT DEVICES: None OSSEOUS STRUCTURES: Degenerative changes in the thoracic spine. HEART AND MEDIASTINUM: The cardiomediastinal silhouette appears unchanged from the prior exam. LUNGS AND PLEURA: There is pulmonary venous congestion, but without luz maria pulmonary edema. No consolidation. No sizable pleural effusion. Report Dictated on Electronically Signed By: Shane Galarza MD Electronically Signed Date/Time: 07/03/2024 10:08 AM EST Cardiac Studies: Telemetry findings reviewed: Sinus Tach ECG: Encounter Date: 07/03/24 ECG 12 lead Result Value Heart Rate 113 QRSD Interval 97 QT Interval 350 QTC Interval 480 P [place] 60 QRS [place] -24 T Wave [place] 89 IN Interval 153 Impression Incomplete analysis due to missing data in precordial lead(s) Sinus tachycardia Left atrial enlargement Left ventricular hypertrophy Nonspecific T abnormalities, lateral leads Borderline prolonged QT interval Electronically Signed On 07-03-2024 20:41:11 EST by Cornelio Joseph Echo: 06/13/24 TRANSTHORACIC ECHOCARDIOGRAM (TTE) COMPLETE (CONTRAST/BUBBLE/3D PRN) 06/15/2024 1:59 PM (Final) Interpretation Summary Left Ventricle: Left ventricle is dilated. Mildly increased wall thickness. Severely reduced left ventricular systolic function. EF by 2D Simpsons Biplane is 20%. Global longitudinal strain is reduced with a value of -5.0%. Severe global hypokinesis present. Right Ventricle: Right ventricle is dilated. Moderately reduced systolic function. Aortic Valve: Mild (1+) regurgitation. Mitral Valve: Moderate (2+) regurgitation with an eccentrically directed jet and and may underestimate severity. Tricuspid Valve: Moderately elevated RVSP. RVSP is 46 mmHg. Pericardium: Small (<1 cm) pericardial effusion present. Findings do not support cardiac tamponade. IVC/Hepatic Veins: IVC diameter is dilated and decreases less than 50% during inspiration; therefore the estimated right atrial pressure is elevated (~15 mmHg). Slow blood flow, echogenic. Signed by: Ofelia Villalobos on 06/15/2024 1:59 PM Cath Report: 06/13/24 CARDIAC PROCEDURE 06/17/2024 11:14 AM (Final) Conclusion No significant epicardial coronary artery disease Milldy elevated right heart pressures: RA 7 mmHg, mean PA pressure 27 mmHg Elevated PCWP ~ 23mmHg, and LVEDP ~ 25 mmHg Decreased cardiac output/index. By Rodney, output: 3/0 L/min index 1.5: By thermodilution, output: 3.1 L/min index: SVR ~ 2200 Signed by: Akilah Diaz on 06/17/2024 11:14 AM Assessment/Plan HF NYHA Class [] I [] II [] III [x] IV []Unable to assess [] N/A SOB 2/2 Acute exacerbation of HFrEF Non-ischemic cardiomyopathy HTN HLD - TTE on 06/14/24 showed LVEF 20 % with severe global hypokinesis - LHC on 06/17/24 showed decreased cardiac output 3 L/min and decreased index 1.5 -Improved SOB and in no acute distress this morning -Lasix 80 mg given once with urine output of -1225 ml in the last 24 hrs Plan -Hydralazine 100 mg TID -Isordil 40 mg TID - Lasix 80 mg for diueresis with BMP recheck -Strict I/Os daily and fluid restriction 1500 ml -Continuous education on the need to be compliant with medical regimen - Carvedilol 3.125 mg BID SCHUYLER on CKD 3 -Baseline Cr 0.72-1.25 -BUN 36 Cr 2.12 grossly unchanged from yesterday --FeUrea 30.9 likely prerenal Plan -Will continue to monitor kidney function Transminitis Abdominal acites -CT A/P showed mild ascites. No evidence of cholecystitis -Improved abdominal pain today. Plan -Continue monitoring LFTs Hx of DVT to Rt popliteal, soleal and peroneal Hx of DVT to Lt peroneal Continue home Eliquis 5mg BID - Goals of Care: Full Code - DVT Prophylaxis: Eliquis - GI Prophylaxis: not indicated - Diet: Regular no salt - BMI Classification: Body mass index is 23.91 kg/m . - Disposition: Continue to monitor in CCU. I, Dr. Villalobos, saw and evaluated the patient. I personally obtained the reardon and critical portions of the history and physical exam. I reviewed the chart, the resident's documentation, and discussed the patient with the resident. I agree with the resident's medical decision making and have edited the note to reflect my clinical findings and my assessment and plan. Please see H&P. documented in this [facility]01-06-2025 Hospital Discharge instructions* Discharge Instructions* Dia Gaitan RN - 07/05/2024 9:17 AM EST My Heart Failure Action Plan Use the below chart as a guide for daily symptom monitoring after you obtain your morning weight. My Bending Shed Worker: Dr. Leatha Murrell [facility] [phone] My Diagnosis: Heart failure with reduced ejection fraction complicated by chronic kidney disease and continued non-adherence to treatment plan and heart failure medications. My Ejection Fraction: 30% --> 20% NORMAL 50-65% My Exercise Goal: as tolerated My Weight Goal: Standing weight day of hospital discharge Weigh yourself daily using the same scale. If you gain more than 3 pounds in 24 hours or 5 pounds in a week Call your Bending Shed Worker!! My Diet Goal: General diet recommendations for heart failure patients are less than 2,000mg sodium and less than 2 liters of fluid per day. This will help with symptoms of fluid retention, such as swelling and shortness of breath. See provider orders for additional/alternative recommendations. Emergency Room Visits: Our goal is to improve your quality of life and help you avoid a visit to the emergency room or hospital. If we work together, we can achieve this goal. But, if you feel you need to call 911 or go tothe emergency room, please do so. If you go to the emergency room, please bring your list of medicines and your daily weight chart with you. GREEN ZONE Doing well today Weight gained is no more than 3 pounds a day or 5 pounds a week. No swelling in feet, ankles, legs or stomach. No more swelling than usual. No more trouble breathing than usual. No change in my sleep. No other problems. Actions: I am doing fine. I will take my medicine, follow my diet, see my doctor, exercise, and watch for symptoms YELLOW ZONE Having a bad day or flare up Weight gained of more than 3 pounds in one day or 5 pounds in one week. New swelling in ankle, leg, knee, or thigh. Bloating in belly, pants feel tighter. Swelling in hands or face. Coughing or trouble breathing while walking or talking. Harder to breathe last night. Have trouble sleeping, wake up short of breath. Much more tired than usual. Not eating. Pain in my chest or bad leg cramps. Feel weak or dizzy. Signs and symptoms of Dehydration: dark and/or less urine, dry cracked mouth/skin, lethargic, lightheaded, dizzy, low blood pressure readings with high heart rate Actions: I need to take action and call my doctor or nurse today. RED ZONE NEED MEDICAL CARE NOW Weight gain of 5 pounds overnight. Chest pain or pressure that does not go away. Feel less alert. Wheezing or have trouble breathing when at rest. Cannot sleep lying down. Cannot take my water pill. Pass out or faint. ACTIONS I need to call my doctor or nurse now! Call 911 if I have chest pain or cannot breathe. documented in this [facility]01-04-2025 History and physical note* Ofelia Villalobos MD - 07/03/2024 7:54 PM EST Images from the original note were not included. [facility] [place] [facility] CCU HISTORY & PHYSICAL Patient Name: Carlo Medina : 1980 Date of Admission: 07/03/2024 8:56 AM Established radar engineer: Dr. Khan Subjective: Chief Complaint: Shortness of breath History of Present Illness: Carlo Medina is a 44 y.o. male with PMH HFrEF(20% 05/2024), moderate mitral regurg, CKD 3b, HTN, DVT, and HLD that presented to [facility] on 07/03/2024 from outside facility ([facility]) due to shortness of breath. Pt reports around 0700 he awoke with shortness of breath and abd pain. States it felt as if hecould not take a deep breath. Pt notes this has occurred in the past and felt similar to when he was admitted to [facility] in 2023. At that time he was found to have EF reduced from 30 to 20%. Pt had been complaining of abd pain at that time as well. It resolved with diuresis. Pt notes he was not tolerating the torsemide as it made him feel fatigued. Was not taking it due to this. He also reports he was taking his isordil BID instead of TID. Notes he started furosemide 20mg 2 days ago. Pt was transferred to [facility] due to concern for cardiogenic shock by ED. Lactic noted to be 2.2. Cr 2.01 (baseline 1.5). BNP 21k. RUQ US showed ascites and some pericholecystic free fluid. Gallbladder was not distended. No findings of gallstones. Upon arrival to [facility], pt noted to be resting comfortably. He reports that while his breathing has improved markedly, he is not at his baseline. Tolerating RA. Review of Systems: Review of Systems Constitutional: Negative for chills and fever. Respiratory: Positive for shortness of breath. Negative for cough and wheezing. Cardiovascular: Positive for leg swelling. Negative for chest pain. Gastrointestinal: Positive for abdominal pain. Negative for diarrhea and nausea. Past Medical History: Past Medical History: Diagnosis Date CHF (congestive heart failure) (HCC) CKD (chronic kidney disease) Hypercholesteremia Hypertension Past Surgical History: Past Surgical History: Procedure Laterality Date CARDIAC CATHETERIZATION N/A 06/17/2024 Performed by Akilah Diaz MD at [facility] 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 Family History: Family History Problem Relation Name Age of Onset Heart disease Father Heart disease Brother Social History: Social History Tobacco Use Smoking status: Never Passive exposure: Never Smokeless tobacco: Never Vaping Use Vaping status: Never Used Substance Use Topics Alcohol use: Never Drug use: Never Allergies: No Known Allergies Medications: Current Outpatient Medications Medication Instructions apixaban (Eliquis) 5 MG tablet Take 2 tablets (10 mg) by mouth 2 times daily for 3 days, THEN 1 tablet (5 mg) 2 times daily. carvedilol (COREG) 25 mg, Oral, 2 times daily with meals cholecalciferol (VITAMIN D-3) 4,000 Units, Oral, Daily furosemide (LASIX) 20 mg, Oral, Daily hydrALAZINE (APRESOLINE) 100 mg, Oral, 3 times daily isosorbide dinitrate (ISORDIL) 30 mg, Oral, 3 times daily sodium bicarbonate 1,300 mg, Oral, 2 times daily Objective: Physical Examination: BP 116/88 (BP Location: Right arm, Patient Position: Sitting) Pulse 101 Temp 36.8 C (98.2 F) (Temporal) Resp 16 Ht 6' 1 (1.854 m) Wt 182 lb 1.6 oz (82.6 kg) SpO2 98% BMI 24.03 kg/m No intake or output data in the 24 hours ending 07/03/241953 Physical Exam Vitals reviewed. Constitutional: General: He is not in acute distress. Appearance: Normal appearance. He is not ill-appearing or diaphoretic. HENT: Head: Normocephalic and atraumatic. Right Ear: External ear normal. Left Ear: External ear normal. Nose: Nose normal. Eyes: General: Right eye: No discharge. Left eye: No discharge. Conjunctiva/sclera: Conjunctivae normal. Cardiovascular: Rate and Rhythm: Normal rate and regular rhythm. Pulses: Normal pulses. Heart sounds: No murmur heard. Comments: JVD noted to about the angle of the mandible Pulmonary: Effort: Pulmonary effort is normal. No respiratory distress. Breath sounds: No wheezing, rhonchi or rales. Abdominal: General: Abdomen is flat. Bowel sounds are normal. There is no distension. Palpations: Abdomen is soft. Tenderness: There is abdominal tenderness (Mild upper abd tenderness). There is no guarding or rebound. Musculoskeletal: General: Normal range of motion. Right lower leg: Edema present. Left lower leg: Edema present. Comments: 1+ bilateral pitting edema Skin: General: Skin is warm and dry. Neurological: Mental Status: He is alert and oriented to person, place, and time. Sensory: No sensory deficit. Psychiatric: Mood and Affect: Mood normal. Behavior: Behavior normal. Laboratory Tests: BMP: Lab Results Component Value Date NA 142 07/03/2024 K 4.4 07/03/2024 CL 110 (H) 07/03/2024 CO2 20 (L) 07/03/2024 BUN 35 (H) 07/03/2024 CREATININE 2.01 (H) 07/03/2024 GLUCOSE 126 (H) 07/03/2024 CALCIUM 9.0 07/03/2024 MG 2.1 06/20/2024 PHOS 4.7 (H) 05/30/2024 CBC: Lab Results Component Value Date WBC 7.3 07/03/2024 HGB 15.2 07/03/2024 HCT 48.6 07/03/2024 MCV 102.1 (H) 07/03/2024 PLT 261 07/03/2024 Cardiac profile: Lab Results Component Value Date BNP 21,849 (H) 07/03/2024 TROPONINI 0.037 (H) 05/28/2024 TROPONINI 0.051 (H) 05/28/2024 TROPONINI 0.032 04/28/2024 Coagulation: No results found for: PROTIME, INR, APTT Lipid panel: Lab Results Component Value Date CHOL 130 06/14/2024 HDL 16 (L) 06/14/2024 LDLCALC 100 (H) 06/14/2024 TRIG 68 06/14/2024 Other: Lab Results Component Value Date HGBA1C 5.0 03/01/2024 TSH 1.52 06/15/2024 Chest Imaging: CXR: === 07/03/24 === XR CHEST 1 VIEW - Impression - FINDINGS AND IMPRESSION: SUPPORT DEVICES: None OSSEOUS STRUCTURES: Degenerative changes in the thoracic spine. HEART AND MEDIASTINUM: The cardiomediastinal silhouette appears unchanged from the prior exam. LUNGS AND PLEURA: There is pulmonary venous congestion, but without luz maria pulmonary edema. No consolidation. No sizable pleural effusion. Report Dictated on Electronically Signed By: Shane Galarza MD Electronically Signed Date/Time: 07/03/2024 10:[address] Chest wo contrast: === 07/03/24 === CT ABDOMEN PELVIS WO IV CONTRAST - Impression - 1. Small ascites, progressed from the prior study. No other acute abdominopelvic process. 2. New small nodular densities in the right lung base. Given their rapid development since the prior study findings are most likely developing infiltrates. Recommend short-term follow-up imaging to ensure resolution. 3. Cardiomegaly. Small bilateral pleural effusions. 4. Small bilateral kidneys. Report Dictated on Electronically Signed By: Shane aGlarza MD Electronically Signed Date/Time: 07/03/2024 10:38 AM EST CTA Chest w and wo contrast: === 07/03/24 === CT ABDOMEN PELVIS WO IV CONTRAST - Impression - 1. Small ascites, progressed from the prior study. No other acute abdominopelvic process. 2. New small nodular densities in the right lung base. Given their rapid development since the prior study findings are most likely developing infiltrates. Recommend short-term follow-up imaging to ensure resolution. 3. Cardiomegaly. Small bilateral pleural effusions. 4. Small bilateral kidneys. Report Dictated on Electronically Signed By: Shane Galarza MD Electronically Signed Date/Time: 07/03/2024 10:38 AM EST Cardiac Studies: Telemetry findings: NSR Last EK07/03/24 ECG 12-LEAD (Preliminary) This result has not been signed. Information might be incomplete. Impression Incomplete analysis due to missing data in precordial lead(s) Sinus tachycardia Left atrial enlargement Left ventricular hypertrophy Nonspecific T abnormalities, lateral leads Borderline prolonged QT interval Last Echo: 06/13/24 TRANSTHORACIC ECHOCARDIOGRAM (TTE) COMPLETE (CONTRAST/BUBBLE/3D PRN) 06/15/2024 1:59 PM (Final) Interpretation Summary Left Ventricle: Left ventricle is dilated. Mildly increased wall thickness. Severely reduced left ventricular systolic function. EF by 2D Simpsons Biplane is 20%. Global longitudinal strain is reduced with a value of -5.0%. Severe global hypokinesis present. Right Ventricle: Right ventricle is dilated. Moderately reduced systolic function. Aortic Valve: Mild (1+) regurgitation. Mitral Valve: Moderate (2+) regurgitation with an eccentrically directed jet and and may underestimate severity. Tricuspid Valve: Moderately elevated RVSP. RVSP is 46 mmHg. Pericardium: Small (<1 cm) pericardial effusion present. Findings do not support cardiac tamponade. IVC/Hepatic Veins: IVC diameter is dilated and decreases less than 50% during inspiration; therefore the estimated right atrial pressure is elevated (~15 mmHg). Slow blood flow, echogenic. Signed by: Ofelia Villalobos on 06/15/2024 1:59 PM Last Cath: 06/13/24 CARDIAC PROCEDURE 06/17/2024 11:14 AM (Final) Conclusion No significant epicardial coronary artery disease Milldy elevated right heart pressures: RA 7 mmHg, mean PA pressure 27 mmHg Elevated PCWP ~ 23mmHg, and LVEDP ~ 25 mmHg Decreased cardiac output/index. By Rodney, output: 3/0 L/min index 1.5: By thermodilution, output: 3.1 L/min index: SVR ~ 2200 Signed by: Akilah Daiz on 06/17/2024 11:14 AM Assessment/Plan SOB 2/2 Acute exacerbation of HFrEF Non-ischemic cardiomyopathy HTN HLD Pt presenting with SOB since this AM. Hx of HFrEF 20% in May 2024. Has not been adherent to his diuresis since torsemide had been making him feel fatigued. 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 Pt appears volume up on exam. JVD noted to angle of mandible. -One time IV lasix 80mg and reassess -Strict I and O -BP soft. Will hold home coreg 25mg -Continue home Isordil 30mg TID and hydralazine 100mg TID -Weigh daily SCHUYLER on CKD 3 NAGMA Likely 2/2 volume overload. Continue to monitor Continue home bicarb 1,300mg BID FeUrea pending Abd pain Abd ascites Transaminitis No evidence of cholecystitis. Pt had similar pain in May that resolved after diuresis. If LFTs are noted to be elevated. If no improvement in pain/LFTs then can consider HIDA scan. Hx of DVT to Rt popliteal, soleal and peroneal Hx of DVT to Lt peroneal Continue home Eliquis 5mg BID - Goals of Care: Prior - DVT Prophylaxis: Eliquis - GI Prophylaxis: Not Indicated - Diet: Low-Sodium - BMI Classification: Body mass index is 24.03 kg/m . - Disposition: Admit to CCU. I, Dr. Villalobos, saw and evaluated the patient on 07/04/24. I personally obtained the reardon and criticalportions of the history and physical exam. I reviewed the chart, the resident's documentation, and discussed the patient with the resident. I agree with the resident's medical decision making and have edited the note to reflect my clinical findings and my assessment and plan. Acute on chronic HFrEF(20% 05/2024) 2/2 NICM ? Genetic (brother and parent) , moderate mitral regurg, CKD 3b, HTN, DVT, and HLD that presented to [facility] on 07/03/2024 from outside facility ([facility]) due toshortness of breath. Patient is feeling better. He is still volume overloaded on exam and cool on exam. He responded well with increased hydralazine and isordil. Lactic acid normalized. -start nipride ggt goal MAP 65-75 mmHg and sBP not less than 90 mmHg -=increased iv diuresis with lasix 80mg iv bid -hold BB for now -genetic studies as an outpatient A total of 45 minutes were spent with the patient providing critical care as detailed. This patientrequires critical care because of the imminent threat of deterioration and/or secondary to impairment of the cardiovascular system. [phone] History and physical note* Ofelia Villalobos MD - 07/03/2024 7:54 PM EST Images from the original note were not included. [facility] [place] [facility] CCU HISTORY & PHYSICAL Patient Name: Carlo Medina : 1980 Date of Admission: 07/03/2024 8:56 AM Established radar engineer: Dr. Khan Subjective: Chief Complaint: Shortness of breath History of Present Illness: Carlo Medina is a 44 y.o. male with PMH HFrEF(20% 05/2024), moderate mitral regurg, CKD 3b, HTN, DVT, and HLD that presented to [facility] on 07/03/2024 from outside facility ([facility]) due to shortness of breath. Pt reports around 0700 he awoke with shortness of breath and abd pain. States it felt as if hecould not take a deep breath. Pt notes this has occurred in the past and felt similar to when he was admitted to [facility] in 2023. At that time he was found to have EF reduced from 30 to 20%. Pt had been complaining of abd pain at that time as well. It resolved with diuresis. Pt notes he was not tolerating the torsemide as it made him feel fatigued. Was not taking it due to this. He also reports he was taking his isordil BID instead of TID. Notes he started furosemide 20mg 2 days ago. Pt was transferred to [facility] due to concern for cardiogenic shock by ED. Lactic noted to be 2.2. Cr 2.01 (baseline 1.5). BNP 21k. RUQ US showed ascites and some pericholecystic free fluid. Gallbladder was not distended. No findings of gallstones. Upon arrival to [facility], pt noted to be resting comfortably. He reports that while his breathing has improved markedly, he is not at his baseline. Tolerating RA. Review of Systems: Review of Systems Constitutional: Negative for chills and fever. Respiratory: Positive for shortness of breath. Negative for cough and wheezing. Cardiovascular: Positive for leg swelling. Negative for chest pain. Gastrointestinal: Positive for abdominal pain. Negative for diarrhea and nausea. Past Medical History: Past Medical History: Diagnosis Date CHF (congestive heart failure) (HCC) CKD (chronic kidney disease) Hypercholesteremia Hypertension Past Surgical History: Past Surgical History: Procedure Laterality Date CARDIAC CATHETERIZATION N/A 06/17/2024 Performed by Akilah Diaz MD at [facility] 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 Family History: Family History Problem Relation Name Age of Onset Heart disease Father Heart disease Brother Social History: Social History Tobacco Use Smoking status: Never Passive exposure: Never Smokeless tobacco: Never Vaping Use Vaping status: Never Used Substance Use Topics Alcohol use: Never Drug use: Never Allergies: No Known Allergies Medications: Current Outpatient Medications Medication Instructions apixaban (Eliquis) 5 MG tablet Take 2 tablets (10 mg) by mouth 2 times daily for 3 days, THEN 1 tablet (5 mg) 2 times daily. carvedilol (COREG) 25 mg, Oral, 2 times daily with meals cholecalciferol (VITAMIN D-3) 4,000 Units, Oral, Daily furosemide (LASIX) 20 mg, Oral, Daily hydrALAZINE (APRESOLINE) 100 mg, Oral, 3 times daily isosorbide dinitrate (ISORDIL) 30 mg, Oral, 3 times daily sodium bicarbonate 1,300 mg, Oral, 2 times daily Objective: Physical Examination: BP 116/88 (BP Location: Right arm, Patient Position: Sitting) Pulse 101 Temp 36.8 C (98.2 F) (Temporal) Resp 16 Ht 6' 1 (1.854 m) Wt 182 lb 1.6 oz (82.6 kg) SpO2 98% BMI 24.03 kg/m No intake or output data in the 24 hours ending 07/03/241953 Physical Exam Vitals reviewed. Constitutional: General: He is not in acute distress. Appearance: Normal appearance. He is not ill-appearing or diaphoretic. HENT: Head: Normocephalic and atraumatic. Right Ear: External ear normal. Left Ear: External ear normal. Nose: Nose normal. Eyes: General: Right eye: No discharge. Left eye: No discharge. Conjunctiva/sclera: Conjunctivae normal. Cardiovascular: Rate and Rhythm: Normal rate and regular rhythm. Pulses: Normal pulses. Heart sounds: No murmur heard. Comments: JVD noted to about the angle of the mandible Pulmonary: Effort: Pulmonary effort is normal. No respiratory distress. Breath sounds: No wheezing, rhonchi or rales. Abdominal: General: Abdomen is flat. Bowel sounds are normal. There is no distension. Palpations: Abdomen is soft. Tenderness: There is abdominal tenderness (Mild upper abd tenderness). There is no guarding or rebound. Musculoskeletal: General: Normal range of motion. Right lower leg: Edema present. Left lower leg: Edema present. Comments: 1+ bilateral pitting edema Skin: General: Skin is warm and dry. Neurological: Mental Status: He is alert and oriented to person, place, and time. Sensory: No sensory deficit. Psychiatric: Mood and Affect: Mood normal. Behavior: Behavior normal. Laboratory Tests: BMP: Lab Results Component Value Date NA 142 07/03/2024 K 4.4 07/03/2024 CL 110 (H) 07/03/2024 CO2 20 (L) 07/03/2024 BUN 35 (H) 07/03/2024 CREATININE 2.01 (H) 07/03/2024 GLUCOSE 126 (H) 07/03/2024 CALCIUM 9.0 07/03/2024 MG 2.1 06/20/2024 PHOS 4.7 (H) 05/30/2024 CBC: Lab Results Component Value Date WBC 7.3 07/03/2024 HGB 15.2 07/03/2024 HCT 48.6 07/03/2024 MCV 102.1 (H) 07/03/2024 PLT 261 07/03/2024 Cardiac profile: Lab Results Component Value Date BNP 21,849 (H) 07/03/2024 TROPONINI 0.037 (H) 05/28/2024 TROPONINI 0.051 (H) 05/28/2024 TROPONINI 0.032 04/28/2024 Coagulation: No results found for: PROTIME, INR, APTT Lipid panel: Lab Results Component Value Date CHOL 130 06/14/2024 HDL 16 (L) 06/14/2024 LDLCALC 100 (H) 06/14/2024 TRIG 68 06/14/2024 Other: Lab Results Component Value Date HGBA1C 5.0 03/01/2024 TSH 1.52 06/15/2024 Chest Imaging: CXR: === 07/03/24 === XR CHEST 1 VIEW - Impression - FINDINGS AND IMPRESSION: SUPPORT DEVICES: None OSSEOUS STRUCTURES: Degenerative changes in the thoracic spine. HEART AND MEDIASTINUM: The cardiomediastinal silhouette appears unchanged from the prior exam. LUNGS AND PLEURA: There is pulmonary venous congestion, but without luz maria pulmonary edema. No consolidation. No sizable pleural effusion. Report Dictated on Electronically Signed By: Shane Galarza MD Electronically Signed Date/Time: 07/03/2024 10:[address] Chest wo contrast: === 07/03/24 === CT ABDOMEN PELVIS WO IV CONTRAST - Impression - 1. Small ascites, progressed from the prior study. No other acute abdominopelvic process. 2. New small nodular densities in the right lung base. Given their rapid development since the prior study findings are most likely developing infiltrates. Recommend short-term follow-up imaging to ensure resolution. 3. Cardiomegaly. Small bilateral pleural effusions. 4. Small bilateral kidneys. Report Dictated on Electronically Signed By: Shane Galarza MD Electronically Signed Date/Time: 07/03/2024 10:38 AM EST CTA Chest w and wo contrast: === 07/03/24 === CT ABDOMEN PELVIS WO IV CONTRAST - Impression - 1. Small ascites, progressed from the prior study. No other acute abdominopelvic process. 2. New small nodular densities in the right lung base. Given their rapid development since the prior study findings are most likely developing infiltrates. Recommend short-term follow-up imaging to ensure resolution. 3. Cardiomegaly. Small bilateral pleural effusions. 4. Small bilateral kidneys. Report Dictated on Electronically Signed By: Shane Galarza MD Electronically Signed Date/Time: 07/03/2024 10:38 AM EST Cardiac Studies: Telemetry findings: NSR Last EK07/03/24 ECG 12-LEAD (Preliminary) This result has not been signed. Information might be incomplete. Impression Incomplete analysis due to missing data in precordial lead(s) Sinus tachycardia Left atrial enlargement Left ventricular hypertrophy Nonspecific T abnormalities, lateral leads Borderline prolonged QT interval Last Echo: 06/13/24 TRANSTHORACIC ECHOCARDIOGRAM (TTE) COMPLETE (CONTRAST/BUBBLE/3D PRN) 06/15/2024 1:59 PM (Final) Interpretation Summary Left Ventricle: Left ventricle is dilated. Mildly increased wall thickness. Severely reduced left ventricular systolic function. EF by 2D Simpsons Biplane is 20%. Global longitudinal strain is reduced with a value of -5.0%. Severe global hypokinesis present. Right Ventricle: Right ventricle is dilated. Moderately reduced systolic function. Aortic Valve: Mild (1+) regurgitation. Mitral Valve: Moderate (2+) regurgitation with an eccentrically directed jet and and may underestimate severity. Tricuspid Valve: Moderately elevated RVSP. RVSP is 46 mmHg. Pericardium: Small (<1 cm) pericardial effusion present. Findings do not support cardiac tamponade. IVC/Hepatic Veins: IVC diameter is dilated and decreases less than 50% during inspiration; therefore the estimated right atrial pressure is elevated (~15 mmHg). Slow blood flow, echogenic. Signed by: Ofelia Villalobos on 06/15/2024 1:59 PM Last Cath: 06/13/24 CARDIAC PROCEDURE 06/17/2024 11:14 AM (Final) Conclusion No significant epicardial coronary artery disease Milldy elevated right heart pressures: RA 7 mmHg, mean PA pressure 27 mmHg Elevated PCWP ~ 23mmHg, and LVEDP ~ 25 mmHg Decreased cardiac output/index. By Rodney, output: 3/0 L/min index 1.5: By thermodilution, output: 3.1 L/min index: SVR ~ 2200 Signed by: Akilah Diaz on 06/17/2024 11:14 AM Assessment/Plan SOB 2/2 Acute exacerbation of HFrEF Non-ischemic cardiomyopathy HTN HLD Pt presenting with SOB since this AM. Hx of HFrEF 20% in May 2024. Has not been adherent to his diuresis since torsemide had been making him feel fatigued. 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 Pt appears volume up on exam. JVD noted to angle of mandible. -One time IV lasix 80mg and reassess -Strict I and O -BP soft. Will hold home coreg 25mg -Continue home Isordil 30mg TID and hydralazine 100mg TID -Weigh daily SCHUYLER on CKD 3 NAGMA Likely 2/2 volume overload. Continue to monitor Continue home bicarb 1,300mg BID FeUrea pending Abd pain Abd ascites Transaminitis No evidence of cholecystitis. Pt had similar pain in Dec that resolved after diuresis. If LFTs are noted to be elevated. If no improvement in pain/LFTs then can consider HIDA scan. Hx of DVT to Rt popliteal, soleal and peroneal Hx of DVT to Lt peroneal Continue home Eliquis 5mg BID - Goals of Care: Prior - DVT Prophylaxis: Eliquis - GI Prophylaxis: Not Indicated - Diet: Low-Sodium - BMI Classification: Body mass index is 24.03 kg/m . - Disposition: Admit to CCU. I, Dr. Villalobos, saw and evaluated the patient on 07/04/24. I personally obtained the reardon and criticalportions of the history and physical exam. I reviewed the chart, the resident's documentation, and discussed the patient with the resident. I agree with the resident's medical decision making and have edited the note to reflect my clinical findings and my assessment and plan. Acute on chronic HFrEF(20% 05/2024) 2/2 NICM ? Genetic (brother and parent) , moderate mitral regurg, CKD 3b, HTN, DVT, and HLD that presented to [facility] on 07/03/2024 from outside facility ([facility]) due toshortness of breath. Patient is feeling better. He is still volume overloaded on exam and cool on exam. He responded well with increased hydralazine and isordil. Lactic acid normalized. -start nipride ggt goal MAP 65-75 mmHg and sBP not less than 90 mmHg -=increased iv diuresis with lasix 80mg iv bid -hold BB for now -genetic studies as an outpatient A total of 45 minutes were spent with the patient providing critical care as detailed. This patientrequires critical care because of the imminent threat of deterioration and/or secondary to impairment of the cardiovascular system. documented in this [facility]01-04-2025 Emergency department Note* Shanti Rodriguez RN - 07/03/2024 6:23 PM EST [facility] arrived to transport pt to [facility] . Pt ambulated to stretcher without difficulty. Pt A&O, calm, and cooperative, no signs of distress noted. VS stable. Resp even, non labored. [id number] Emergency [facility]* Shanti Rodriguez RN - 07/03/2024 6:23 PM EST Attempted to call report to T1 at [facility] no answer. [id number] Emergency [facility] Note* Shanti Rodriguez RN - 07/03/2024 6:23 PM EST [facility] arrived to transport pt to [facility] . Pt ambulated to stretcher without difficulty. Pt A&O, calm, and cooperative, no signs of distress noted. VS stable. Resp even, non labored. * Shanti Rodriguez RN - 07/03/2024 6:23 PM EST Attempted to call report to T1 at [facility] no answer. * Yasmeen Petersen RN - 07/03/2024 3:17 PM EST Pt given bedside table to food tray * Shanti Rodriguez RN - 07/03/2024 1:22 PM EST Pt given urinal asked to void if able. Pt states he does not have to urinate at this time. * Jyotsna Wilcox RN - 07/03/2024 10:02 AM EST Patient refusing to let this RN attempt IV without ultra sound. Patient states I dont want you to poke me without it * Shanti Rodriguez RN - 07/03/2024 9:52 AM EST This RN attempted IV stick multiple times and was unsuccessful. Charge nurse notified. * Judie Cortes RN - 07/03/2024 9:16 AM EST Patient requesting to be placed on oxygen. Patients oxygen saturation was 98% on room air at time of triage. Patient is now 95% on room air. Patient advised that he does not require oxygen at this time. * Meek Dover PA-C - 07/03/2024 8:50 AM EST EMERGENCY DEPARTMENT ENCOUNTER Pt Name: Carlo Medina Birthdate 1980 Date of evaluation: 07/03/2024 ED Provider: Meek Dover PA-C CHIEF COMPLAINT Chief Complaint Patient presents with Abdominal Pain Shortness of Breath Patient reports he has a history of heart disease and stage 3 kidney disease. Patient reports shob started last pm. 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 HISTORY OF PRESENT ILLNESS (Location/Symptom, Timing/Onset, Context/Setting, Quality, Duration, Modifying Factors, Severity) Note limiting factors. I wore appropriate PPE for the entirety of this encounter. HPI Carlo Medina is a 44 y.o. male who presents to the emergency department with abdominal pain, shortness of breath, primarily for the last day, have 1 episode of nausea and vomiting. Denies any significant change in bowel habits such as diarrhea, constipation, denies significant change in urinary habits. Reports history of CHF and CKD. Was recently hospitalized for heart failure. States he has gained 2 pounds in the last couple days and legs feel somewhat puffy. Has been compliant with medications. Denies any known sick contacts. Denies fever. Nursing Notes were reviewed. Limitations to history: None Outside historians: Significant other REVIEW OF SYSTEMS Review of Systems 8 systems reviewed, positives and pertinent negatives as per HPI. All other systems were reviewed and are negative. PAST MEDICAL HISTORY Past Medical History: Diagnosis Date CHF (congestive heart failure) (HCC) CKD (chronic kidney disease) Hypercholesteremia Hypertension SURGICAL HISTORY Past Surgical History: Procedure Laterality Date CARDIAC CATHETERIZATION N/A 06/17/2024 Performed by Akilah Diaz MD at [facility] 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 CURRENT MEDICATIONS Current Discharge Medication List CONTINUE these medications which have NOT CHANGED Details apixaban (Eliquis) 5 MG tablet Take 2 tablets (10 mg) by mouth 2 times daily for 3 days, THEN 1 tablet (5 mg) 2 times daily. Qty: 60 tablet, Refills: 3 carvedilol (Coreg) 25 MG tablet Take 1 tablet (25 mg) by mouth 2 times daily (with meals). Qty: 180 tablet, Refills: 0 cholecalciferol (Vitamin D-3) 50 MCG (2000 UT) tablet Take 2 tablets (4,000 Units) by mouth daily. Qty: 180 tablet, Refills: 0 furosemide (Lasix) 20 MG tablet Take 1 tablet (20 mg) by mouth daily. Qty: 90 tablet, Refills: 3 hydrALAZINE (Apresoline) 100 MG tablet Take 1 tablet (100 mg) by mouth 3 times daily. Qty: 270 tablet, Refills: 3 isosorbide dinitrate (Isordil) 20 MG tablet Take 1.5 tablets (30 mg) by mouth 3 times daily. Qty: 270 tablet, Refills: 0 sodium bicarbonate 650 MG tablet Take 2 tablets (1,300 mg) by mouth 2 times daily. Qty: 360 tablet, Refills: 0 ALLERGIES Patient has no known allergies. FAMILY HISTORY Family History Problem Relation Name Age of Onset Heart disease Father Heart disease Brother SOCIAL HISTORY Social History Socioeconomic History Marital status: Single Tobacco Use Smoking status: Never Passive exposure: Never Smokeless tobacco: Never Vaping Use Vaping status: Never Used Substance and Sexual Activity Alcohol use: Never Drug use: Never Sexual activity: Yes Partners: Female Social Drivers of Health Financial Resource Strain: Low Risk (04/28/2024) Overall Financial Resource Strain (CARDIA) Difficulty of Paying Living Expenses: Not very hard Food Insecurity: No Food Insecurity (06/13/2024) Hunger Vital Sign Worried About Running Out of Food in the Last Year: Never true Ran Out of Food in the Last Year: Never true Transportation Needs: No Transportation Needs (06/13/2024) PRAPARE - Transportation Lack of Transportation (Medical): No Lack of Transportation (Non-Medical): No Physical Activity: Insufficiently Active (04/28/2024) Exercise Vital Sign Days of Exercise per Week: 7 days Minutes of Exercise per Session: 10 min Stress: No Stress Concern Present (04/28/2024) [employer] [place] [employer] - Occupational Stress Questionnaire Feeling of Stress : Not at all Recent Concern: Stress - Stress Concern Present (02/28/2024) [employer] [place] [place] [employer] - Occupational Stress Questionnaire Feeling of Stress : To some extent Social Connections: Unknown (04/28/2024) Social Connection and Isolation Panel [NHANES] Frequency of Communication with Friends and Family: Once a week Frequency of Social Gatherings with Friends and Family: Once a week Attends Holiness Services: Patient unable to answer Active Member of Clubs or Organizations: No Attends Club or Organization Meetings: Never Marital Status: Living with partner Intimate Partner Violence: Not At Risk (06/13/2024) Humiliation, Afraid, Rape, and Kick questionnaire Fear of Current or Ex-Partner: No Emotionally Abused: No Physically Abused: No Sexually Abused: No Housing Stability: Low Risk (06/13/2024) Housing Stability Vital Sign Unable to Pay for Housing in the Last Year: No Number of Times Moved in the Last Year: 0 Homeless in the Last Year: No SCREENINGS PHYSICAL EXAM ED Triage Vitals [07/03/24 0855] Temp Heart Rate Resp BP 36.8 C (98.2 F) 57 20 (!) 130/99 SpO2 Temp Source Heart Rate Source Patient Position 98 % Temporal Monitor Sitting BP Location FiO2 (%) Right arm -- Physical Exam Constitutional: Appearance: He is not ill-appearing. Comments: Cooperative male, not acutely distressed. HENT: Head: Normocephalic and atraumatic. Cardiovascular: Rate and Rhythm: Normal rate and regular rhythm. Heart sounds: Normal heart sounds. Comments: Trace symmetrical edema to bilateral legs. No pitting. Abdominal: General: Abdomen is flat. Bowel sounds are normal. Palpations: Abdomen is soft. Tenderness: There is generalized abdominal tenderness. Comments: Mild generalized tenderness to the abdomen without focus, abdomen flat soft nondistended,no significant appreciable ascites or fluid, audible bowel sounds, no peritonitis. Musculoskeletal: Cervical back: Normal range of motion. Neurological: Mental Status: He is alert. DIAGNOSTIC RESULTS RADIOLOGY (Per Emergency Physician): Interpretation per the Radiologist below, if available at the time of this note: US abdomen limited Final Result 1. Positive sonographic Melendez sign. There is right upper quadrant ascites including pericholecystic free fluid. However, the gallbladder is nondistended and without evidence of gallstones or mural thickening to suggest cholecystitis. Given the positive sonographic Melendez sign, if there is persistent concern, HIDA scan could be obtained. 2. No biliary dilation. Report Dictated on Electronically Signed By: Shane Galarza MD Electronically Signed Date/Time: 07/03/2024 12:[address] abdomen pelvis wo IV contrast Final Result 1. Small ascites, progressed from the prior study. No other acute abdominopelvic process. 2. New small nodular densities in the right lung base. Given their rapid development since the prior study findings are most likely developing infiltrates. Recommend short-term follow-up imaging to ensure resolution. 3. Cardiomegaly. Small bilateral pleural effusions. 4. Small bilateral kidneys. Report Dictated on Electronically Signed By: Shane Galarza MD Electronically Signed Date/Time: 07/03/2024 10:38 AM EST XR chest 1 view Final Result FINDINGS AND IMPRESSION: SUPPORT DEVICES: None OSSEOUS STRUCTURES: Degenerative changes in the thoracic spine. HEART AND MEDIASTINUM: The cardiomediastinal silhouette appears unchanged from the prior exam. LUNGS AND PLEURA: There is pulmonary venous congestion, but without luz maria pulmonary edema. No consolidation. No sizable pleural effusion. Report Dictated on Electronically Signed By: Shane Galarza MD Electronically Signed Date/Time: 07/03/2024 10:08 AM EST LABS: Labs Reviewed CBC WITH AUTO DIFFERENTIAL - Abnormal Result Value Auto WBC 7.3 RBC 4.76 Hemoglobin 15.7 Hematocrit 48.6 MCV 102.1 (*) MCH 33.0 MCHC 32.3 RDW 14.6 Platelets 261 MPV 10.2 nRBC 0.3 Neutrophils Relative 72.8 Lymphocytes Relative 21.1 Monocytes Relative 5.4 Eosinophils Relative 0.0 Basophils Relative 0.3 Immature Grans % 0.4 Neutrophils Absolute 5.3 Lymphocytes Absolute 1.5 Monocytes Absolute 0.4 Eosinophils Absolute 0.0 Basophils Absolute 0.0 Immature Grans Absolute 0.0 COMPREHENSIVE METABOLIC PANEL - Abnormal SODIUM 142 POTASSIUM 4.4 CHLORIDE 110 (*) CARBON DIOXIDE 20 (*) ANION GAP 12 UREA NITROGEN 35 (*) CREATININE 2.01 (*) GLUCOSE 126 (*) CALCIUM 9.0 AST (SGOT) 56 (*) ALT 159 (*) ALKALINE PHOSPHATASE 267 (*) ALBUMIN 3.3 (*) BILIRUBIN, TOTAL 2.4 (*) TOTAL PROTEIN 6.5 eGFR 40.7 (*) HIGH SENSITIVITY TROPONIN, SERIAL BASELINE - Abnormal Troponin HS, Serial Baseline 39 (*) NT PRO BNP - Abnormal NT PRO BNP 21,849 (*) COMPLETE URINALYSIS - Abnormal Color, Urine Yellow Clarity, Urine Turbid (*) pH, Urine 5.5 Leukocytes, Urine Negative Nitrite, Urine Negative Protein, Urine 100 (*) Glucose, Urine Normal Bilirubin, Urine Negative Ketones, Urine Negative Urobilinogen, Urine Normal Blood, Urine Negative RBC, Urine 3-5 (*) WBC, Urine 3-5 Squamous Epithelial, Urine 0-2 Bacteria, Urine Negative Mucus, Urine Few Amorphous Crystals, Urine Few (*) Hyaline Casts, Urine 3-5 (*) Spermatozoa, Urine Few (*) SPECIFIC GRAVITY OF URINE (NUMERIC) 1.030 BLOOD GAS, VENOUS - Abnormal pH, Venous 7.325 pCO2, Venous 36.1 (*) pO2, Venous 39.3 HCO3, Venous 18.4 (*) O2 Sat, Venous 60.4 Base Excess, Venous -6.8 (*) Hgb, blood gas 15.2 TCO2, Venous 19.5 (*) Source Of Oxygen Room Air Narrative: Assessment of oxygenation is best done with an arterial blood gas determination. Reference ranges for pO2, bicarbonate, and base excess are for mixed venous blood. Specimens drawn from a peripheral vein will often have higher values. LACTIC ACID WITH REFLEX - Abnormal LACTIC ACID 2.5 (*) LIPASE - Normal LIPASE 18 LACTIC ACID WITH REFLEX - Normal LACTIC ACID 2.2 COMPLETE URINALYSIS WITH REFLEX TO CULTURE Narrative: The following orders were created for panel order Urinalysis Complete with reflex to Culture. Procedure Abnormality Status --------- ------ Complete Urinalysis[[id number]] Abnormal Final result Please view results for these tests on the individual orders. HIGH SENSITIVITY TROPONIN, SERIAL, SECOND TEST Troponin HS, Serial Second 33 Troponin HS Delta, Baseline to Second -6 COMPREHENSIVE METABOLIC PANEL CBC WITH AUTO DIFFERENTIAL UREA NITROGEN, URINE LACTIC ACID WITH REFLEX All other labs were within normal range or not returned as of this dictation. EMERGENCY DEPARTMENT COURSE and DIFFERENTIAL DIAGNOSIS/MDM: Vitals: Vitals: 07/03/24 1930 07/03/24 1950 07/03/24199907/03/242014 BP: 113/91 111/80 103/88 112/97 BP Location: Right arm Patient Position: Lying Pulse: 109 105 101 104 Resp: 22 24 16 12 Temp: 36.8 C (98.3 F) TempSrc: Temporal SpO2: 94% 98% 100% Weight: Height: Medications apixaban (Eliquis) tablet 5 mg (has no administration in time range) carvedilol (Coreg) tablet 25 mg ( Oral Dose Auto Held 07/08/24 1700) cholecalciferol (Vitamin D-3) tablet 4,000 Units (has no administration in time range) sodium bicarbonate tablet 1,300 mg (has no administration in time range) mupirocin (Bactroban) 2 % ointment 1 Application (has no administration in time range) ondansetron ODT (Zofran-ODT) disintegrating tablet 4 mg (has no administration in time range) Or ondansetron (Zofran) injection 4 mg (has no administration in time range) hydrALAZINE (Apresoline) tablet 100 mg (has no administration in time range) isosorbide dinitrate (Isordil) tablet 30 mg (has no administration in time range) furosemide (Lasix) injection 80 mg (has no administration in time range) ondansetron (Zofran) injection 4 mg (4 mg IntraVENous Given 07/03/24 1108) morphine injection 4 mg (4 mg IntraVENous Given 07/03/24 1108) ED care was supervised by Dr. Alonso who independently examined and evaluated the patient. Please see their attestation note for further details. In brief, Carlo Medina is a 44 y.o. male who presented to the emergency department for nausea vomiting abdominal pain, shortness of breath. Nursing notes and medical records reviewed, external records reviewed from [facility] cardiology Dr. Zhang on 07/01/2024 assessment and plan per notes as follows: Assessment and Plan: 1. Chronic systolic heart failure (HCC) 2. Essential hypertension 3. Chronic kidney disease, unspecified CKD stage 1. Congestive heart failure: He is near card association class III. He and his significant other seem to have a better understanding of his situation. He plans on weighing himself daily. In the meantime I will start him back on low-dose diuretic and I will optimize his hydralazine. He was placed onhydralazine and isosorbide because of his kidney disease and was not started on ARB or LUCRECIA inhibitor. At this point we will continue to optimize his medicines. Will repeat an echo in 2 months and seehim back afterwards. If he continues to have significant left ventricular dysfunction he will be referred for a defibrillator. 2. Hypertension: Controlled on medicines. 3. Chronic kidney disease stage IIIb. Hospitalization on 06/13/2024 and discharged on 06/21/2024 here at [facility] with hospital course as follows: Hospital Course: patient with acute HFrEF exacerbation and worsening renal function, with IV diuresis, Cardiology and nephrology following. Improvement in volume status, however now worse renal function, nephrology on consult. Repeat echo now with LVEF of 20%, cardiology following. Planned for LHCand RHC on 06/17/24, ruled out coronary disease, deemed non-ischemic cardiomyopathy. Cardiology recommending possible transfer to [facility] to be monitored in heart failure ICU, however patient refused transfer to [facility]. Resumed on Eliquis for newly acute diagnosis of acute DVT in right popliteal soleal and peroneal veins and left peroneal vein. consistently refusing daily lab draws to assess renal function. He is with poor medication compliance outpatient and has been lost to follow up previously. I had lengthy discussion with patient regarding the severity of his current cardiac condition and status. Palliative care on consult for further emphasis and further C discussion as well. He is on [facility] cardiology recs as tolerated. Renal function improving and tolerated being resumed on PO diuretics. Patient will not have insurance until June 30. He will need close outpatient follow up with cardiology and nephrology and to get established with PCP. He is high risk for re-admission. He is optimized from cardiac standpoint per my discussion with cardiology. He is recommended for close outpatient follow up with PCP, cardiology, and nephrology outpatient in 1- 2 weeks. He is discharged to home in stable condition on 06/21/24. Differential considerations included GERD/cystitis, pancreatitis, colitis, worsening heart failure,pneumonia, etc. Initial medical management includes cardiorespiratory monitoring, IV morphine, IV Zofran, oxygen therapy protocols. On triage patient is stable, oxygen saturation normal, exam is overall reassuring he is not in any distress. Initial workup includes EKG, screening labs, troponin, BNP, chest x-ray, CT abdomen pelvis without contrast. Upon reassessment patient stable feeling slightly better. Lab workup results reviewed, renal function and liver transaminases worsened from comparison, addedRUQ ultrasound. BNP elevated at 21k. CT abdomen per rad shows slight interval ascites, possible RLLinfiltrate however he has no fever or cough. Chest xray showed no luz maria edema no infiltrate per rad. Chronic conditions contributing to patients presentation include CHF. Social determinants to care: none identified Discussed results with him, suspect hepatorenal syndrome associated with poor CHF. He was agreeableto admission. Dicussed with Dr. Mcguire here he recommended [facility]U at [facility]. I discussed with assembler adjuster and they accepted to HLU under Dr. Villalobos. PROCEDURES: Unless otherwise noted below, none Procedures FINAL IMPRESSION 1. Acute kidney injury superimposed on CKD (HCC) (HCC) 2. Transaminitis 3. History of CHF (congestive heart failure) DISPOSITION Admit 07/03/2024 05:14:56 PM PATIENT REFERRED TO: No follow-up provider specified. DISCHARGE MEDICATIONS: Current Discharge Medication List (Comment: Please note this report has been produced using speech recognition software and may contain errors related to that system including errors in grammar, punctuation, and spelling, as well as words and phrases that may be inappropriate. If there are any questions or concerns please feel freeto contact the dictating provider for clarification.) Meek Dover PA-C (electronically signed) Emergency Medicine Provider Meek Dover PA-C 07/03/24 [id number] Cosigned by Kishore Alosno DO at 07/04/2024 7:10 AM EST * Kishore Alonso DO - 07/03/2024 8:50 AM EST Emergency Department Encounter [facility] ED Patient: Carlo Medina : 1980 Date of Evaluation: 07/03/2024 ED Supervising Physician: Kishore Alonso DO I personally evaluated Carlo Medina and made/approved the management plan and take responsibilityfor the patient management. This will serve as my Supervisory note and shared attestation. I did perform a substantive portion of the visit including all aspects of the Medical Decision Making. I wore appropriate PPE for the entirety of this encounter. In brief, Carlo Medina is a 44 y.o. that presents to the emergency department with chief complaint new abdominal distention, discomfort, and shortness of breath. This is in the setting of known history of heart failure. Recently discharged after being admitted for exacerbation. Has been taking Lasix but notes minimal urine output currently. Feels generally swollen. No fevers. No productive cough. Focused exam: Alert and orient x 3. Heart is regular rhythm but tachycardic. Generally ill-appearing. Mild abdominal distention noted. Bilateral pitting lower extremity edema. Brief ED course/MDM: Patient does not have any signs of respiratory distress but does have worsening fluid overload and uptrending creatinine again. Complex/multifactorial condition where Lasix can potentially exacerbate the SCHUYLER but patient was also clinically fluid overloaded and does seem to haveworsening transaminitis secondary to the fluid overload. Will need admission for cardiology and nephrology evaluation. All diagnostic, treatment, and disposition decisions were made by myself in conjunction with the [facility]. For all further details of the patient's emergency department visit, please see their documentation. (Comment: Please note this report has been produced using speech recognition software and may contain errors related to that system including errors in grammar, punctuation, and spelling, as well as words and phrases that may be inappropriate. If there are any questions or concerns please feel freeto contact the dictating provider for clarification.) Kishore Alonso DO [employer] Kishore Alonso DO 07/03/24 1218 * Judie Cortes RN - 07/03/2024 8:50 AM EST Patient reports he has a history of heart disease and stage 3 kidney disease. Patient reports shob started last pm. 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 documented in this [facility]01-04-2025 Emergency department Note* Yasmeen Petersen RN - 07/03/2024 3:17 PM EST Pt given bedside table to food tray [id number]* Shanti Rodriguez RN - 07/03/2024 1:22 PM EST Pt given urinal asked to void if able. Pt states he does not have to urinate at this time. [id number] Note1. Small ascites, progressed from the prior study. No other acute abdominopelvic process. 2. New small nodular densities in the right lung base. Given their rapid development since the prior study findings are most likely developing infiltrates. Recommend short-term follow-up imaging to ensure resolution. 3. Cardiomegaly. Small bilateral pleural effusions. 4. Small bilateral kidneys. Report Dictated on Electronically Signed By: Shane Galarza MD Electronically Signed Date/Time: 07/03/2024 10:38 AM EST [facility] RADIOLOG[facility] [id number] Emergency department Note* Jyotsna Wilcox RN - 07/03/2024 10:02 AM EST Patient refusing to let this RN attempt IV without ultra sound. Patient states I dont want you to poke me without it [facility]01-04-2025 Emergency department Note* Shanti Rodriguez RN - 07/03/2024 9:52 AM EST This RN attempted IV stick multiple times and was unsuccessful. Charge nurse notified. [facility]01-04-2025 Emergency department Note* Judie Cortes RN - 07/03/2024 9:16 AM EST Patient requesting to be placed on oxygen. Patients oxygen saturation was 98% on room air at time of triage. Patient is now 95% on room air. Patient advised that he does not require oxygen at this time. [facility]01-04-2025 Emergency department Triage note* Judie oCrtes RN - 07/03/2024 8:50 AM EST Patient reports he has a history of heart disease and stage 3 kidney disease. Patient reports shob started last pm. 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 [address]04-2025 Physician Emergency department Note* Meek Dover PA-C - 07/03/2024 8:50 AM EST EMERGENCY DEPARTMENT ENCOUNTER Pt Name: Carlo Medina Birthdate 1980 Date of evaluation: 07/03/2024 ED Provider: Meek Dover PA-C CHIEF COMPLAINT Chief Complaint Patient presents with Abdominal Pain Shortness of Breath Patient reports he has a history of heart disease and stage 3 kidney disease. Patient reports shob started last pm. 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 HISTORY OF PRESENT ILLNESS (Location/Symptom, Timing/Onset, Context/Setting, Quality, Duration, Modifying Factors, Severity) Note limiting factors. I wore appropriate PPE for the entirety of this encounter. HPI Carlo Medina is a 44 y.o. male who presents to the emergency department with abdominal pain, shortness of breath, primarily for the last day, have 1 episode of nausea and vomiting. Denies any significant change in bowel habits such as diarrhea, constipation, denies significant change in urinary habits. Reports history of CHF and CKD. Was recently hospitalized for heart failure. States he has gained 2 pounds in the last couple days and legs feel somewhat puffy. Has been compliant with medications. Denies any known sick contacts. Denies fever. Nursing Notes were reviewed. Limitations to history: None Outside historians: Significant other REVIEW OF SYSTEMS Review of Systems 8 systems reviewed, positives and pertinent negatives as per HPI. All other systems were reviewed and are negative. PAST MEDICAL HISTORY Past Medical History: Diagnosis Date CHF (congestive heart failure) (HCC) CKD (chronic kidney disease) Hypercholesteremia Hypertension SURGICAL HISTORY Past Surgical History: Procedure Laterality Date CARDIAC CATHETERIZATION N/A 06/17/2024 Performed by Akilah Diaz MD at [facility] 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 CURRENT MEDICATIONS Current Discharge Medication List CONTINUE these medications which have NOT CHANGED Details apixaban (Eliquis) 5 MG tablet Take 2 tablets (10 mg) by mouth 2 times daily for 3 days, THEN 1 tablet (5 mg) 2 times daily. Qty: 60 tablet, Refills: 3 carvedilol (Coreg) 25 MG tablet Take 1 tablet (25 mg) by mouth 2 times daily (with meals). Qty: 180 tablet, Refills: 0 cholecalciferol (Vitamin D-3) 50 MCG (2000 UT) tablet Take 2 tablets (4,000 Units) by mouth daily. Qty: 180 tablet, Refills: 0 furosemide (Lasix) 20 MG tablet Take 1 tablet (20 mg) by mouth daily. Qty: 90 tablet, Refills: 3 hydrALAZINE (Apresoline) 100 MG tablet Take 1 tablet (100 mg) by mouth 3 times daily. Qty: 270 tablet, Refills: 3 isosorbide dinitrate (Isordil) 20 MG tablet Take 1.5 tablets (30 mg) by mouth 3 times daily. Qty: 270 tablet, Refills: 0 sodium bicarbonate 650 MG tablet Take 2 tablets (1,300 mg) by mouth 2 times daily. Qty: 360 tablet, Refills: 0 ALLERGIES Patient has no known allergies. FAMILY HISTORY Family History Problem Relation Name Age of Onset Heart disease Father Heart disease Brother SOCIAL HISTORY Social History Socioeconomic History Marital status: Single Tobacco Use Smoking status: Never Passive exposure: Never Smokeless tobacco: Never Vaping Use Vaping status: Never Used Substance and Sexual Activity Alcohol use: Never Drug use: Never Sexual activity: Yes Partners: Female Social Drivers of Health Financial Resource Strain: Low Risk (04/28/2024) Overall Financial Resource Strain (CARDIA) Difficulty of Paying Living Expenses: Not very hard Food Insecurity: No Food Insecurity (06/13/2024) Hunger Vital Sign Worried About Running Out of Food in the Last Year: Never true Ran Out of Food in the Last Year: Never true Transportation Needs: No Transportation Needs (06/13/2024) PRAPARE - Transportation Lack of Transportation (Medical): No Lack of Transportation (Non-Medical): No Physical Activity: Insufficiently Active (04/28/2024) Exercise Vital Sign Days of Exercise per Week: 7 days Minutes of Exercise per Session: 10 min Stress: No Stress Concern Present (04/28/2024) [employer] [place] [employer] - Occupational Stress Questionnaire Feeling of Stress : Not at all Recent Concern: Stress - Stress Concern Present (02/28/2024) [employer] [place] [employer] - Occupational Stress Questionnaire Feeling of Stress : To some extent Social Connections: Unknown (04/28/2024) Social Connection and Isolation Panel [NHANES] Frequency of Communication with Friends and Family: Once a week Frequency of Social Gatherings with Friends and Family: Once a week Attends Holiness Services: Patient unable to answer Active Member of Clubs or Organizations: No Attends Club or Organization Meetings: Never Marital Status: Living with partner Intimate Partner Violence: Not At Risk (06/13/2024) Humiliation, Afraid, Rape, and Kick questionnaire Fear of Current or Ex-Partner: No Emotionally Abused: No Physically Abused: No Sexually Abused: No Housing Stability: Low Risk (06/13/2024) Housing Stability Vital Sign Unable to Pay for Housing in the Last Year: No Number of Times Moved in the Last Year: 0 Homeless in the Last Year: No SCREENINGS PHYSICAL EXAM ED Triage Vitals [07/03/24 0855] Temp Heart Rate Resp BP 36.8 C (98.2 F) 57 20 (!) 130/99 SpO2 Temp Source Heart Rate Source Patient Position 98 % Temporal Monitor Sitting BP Location FiO2 (%) Right arm -- Physical Exam Constitutional: Appearance: He is not ill-appearing. Comments: Cooperative male, not acutely distressed. HENT: Head: Normocephalic and atraumatic. Cardiovascular: Rate and Rhythm: Normal rate and regular rhythm. Heart sounds: Normal heart sounds. Comments: Trace symmetrical edema to bilateral legs. No pitting. Abdominal: General: Abdomen is flat. Bowel sounds are normal. Palpations: Abdomen is soft. Tenderness: There is generalized abdominal tenderness. Comments: Mild generalized tenderness to the abdomen without focus, abdomen flat soft nondistended,no significant appreciable ascites or fluid, audible bowel sounds, no peritonitis. Musculoskeletal: Cervical back: Normal range of motion. Neurological: Mental Status: He is alert. DIAGNOSTIC RESULTS RADIOLOGY (Per Emergency Physician): Interpretation per the Radiologist below, if available at the time of this note: US abdomen limited Final Result 1. Positive sonographic Melendez sign. There is right upper quadrant ascites including pericholecystic free fluid. However, the gallbladder is nondistended and without evidence of gallstones or mural thickening to suggest cholecystitis. Given the positive sonographic Melendez sign, if there is persistent concern, HIDA scan could be obtained. 2. No biliary dilation. Report Dictated on Electronically Signed By: Shane Galarza MD Electronically Signed Date/Time: 07/03/2024 12:[address] abdomen pelvis wo IV contrast Final Result 1. Small ascites, progressed from the prior study. No other acute abdominopelvic process. 2. New small nodular densities in the right lung base. Given their rapid development since the prior study findings are most likely developing infiltrates. Recommend short-term follow-up imaging to ensure resolution. 3. Cardiomegaly. Small bilateral pleural effusions. 4. Small bilateral kidneys. Report Dictated on Electronically Signed By: Shane Galarza MD Electronically Signed Date/Time: 07/03/2024 10:38 AM EST XR chest 1 view Final Result FINDINGS AND IMPRESSION: SUPPORT DEVICES: None OSSEOUS STRUCTURES: Degenerative changes in the thoracic spine. HEART AND MEDIASTINUM: The cardiomediastinal silhouette appears unchanged from the prior exam. LUNGS AND PLEURA: There is pulmonary venous congestion, but without luz maria pulmonary edema. No consolidation. No sizable pleural effusion. Report Dictated on Electronically Signed By: Shane Galarza MD Electronically Signed Date/Time: 07/03/2024 10:08 AM EST LABS: Labs Reviewed CBC WITH AUTO DIFFERENTIAL - Abnormal Result Value Auto WBC 7.3 RBC 4.76 Hemoglobin 15.7 Hematocrit 48.6 MCV 102.1 (*) MCH 33.0 MCHC 32.3 RDW 14.6 Platelets 261 MPV 10.2 nRBC 0.3 Neutrophils Relative 72.8 Lymphocytes Relative 21.1 Monocytes Relative 5.4 Eosinophils Relative 0.0 Basophils Relative 0.3 Immature Grans % 0.4 Neutrophils Absolute 5.3 Lymphocytes Absolute 1.5 Monocytes Absolute 0.4 Eosinophils Absolute 0.0 Basophils Absolute 0.0 Immature Grans Absolute 0.0 COMPREHENSIVE METABOLIC PANEL - Abnormal SODIUM 142 POTASSIUM 4.4 CHLORIDE 110 (*) CARBON DIOXIDE 20 (*) ANION GAP 12 UREA NITROGEN 35 (*) CREATININE 2.01 (*) GLUCOSE 126 (*) CALCIUM 9.0 AST (SGOT) 56 (*) ALT 159 (*) ALKALINE PHOSPHATASE 267 (*) ALBUMIN 3.3 (*) BILIRUBIN, TOTAL 2.4 (*) TOTAL PROTEIN 6.5 eGFR 40.7 (*) HIGH SENSITIVITY TROPONIN, SERIAL BASELINE - Abnormal Troponin HS, Serial Baseline 39 (*) NT PRO BNP - Abnormal NT PRO BNP 21,849 (*) COMPLETE URINALYSIS - Abnormal Color, Urine Yellow Clarity, Urine Turbid (*) pH, Urine 5.5 Leukocytes, Urine Negative Nitrite, Urine Negative Protein, Urine 100 (*) Glucose, Urine Normal Bilirubin, Urine Negative Ketones, Urine Negative Urobilinogen, Urine Normal Blood, Urine Negative RBC, Urine 3-5 (*) WBC, Urine 3-5 Squamous Epithelial, Urine 0-2 Bacteria, Urine Negative Mucus, Urine Few Amorphous Crystals, Urine Few (*) Hyaline Casts, Urine 3-5 (*) Spermatozoa, Urine Few (*) SPECIFIC GRAVITY OF URINE (NUMERIC) 1.030 BLOOD GAS, VENOUS - Abnormal pH, Venous 7.325 pCO2, Venous 36.1 (*) pO2, Venous 39.3 HCO3, Venous 18.4 (*) O2 Sat, Venous 60.4 Base Excess, Venous -6.8 (*) Hgb, blood gas 15.2 TCO2, Venous 19.5 (*) Source Of Oxygen Room Air Narrative: Assessment of oxygenation is best done with an arterial blood gas determination. Reference ranges for pO2, bicarbonate, and base excess are for mixed venous blood. Specimens drawn from a peripheral vein will often have higher values. LACTIC ACID WITH REFLEX - Abnormal LACTIC ACID 2.5 (*) LIPASE - Normal LIPASE 18 LACTIC ACID WITH REFLEX - Normal LACTIC ACID 2.2 COMPLETE URINALYSIS WITH REFLEX TO CULTURE Narrative: The following orders were created for panel order Urinalysis Complete with reflex to Culture. Procedure Abnormality Status --------- ------ Complete Urinalysis[[id number]] Abnormal Final result Please view results for these tests on the individual orders. HIGH SENSITIVITY TROPONIN, SERIAL, SECOND TEST Troponin HS, Serial Second 33 Troponin HS Delta, Baseline to Second -6 COMPREHENSIVE METABOLIC PANEL CBC WITH AUTO DIFFERENTIAL UREA NITROGEN, URINE LACTIC ACID WITH REFLEX All other labs were within normal range or not returned as of this dictation. EMERGENCY DEPARTMENT COURSE and DIFFERENTIAL DIAGNOSIS/MDM: Vitals: Vitals: 07/03/24 1930 07/03/24 1950 07/03/24199907/03/242014 BP: 113/91 111/80 103/88 112/97 BP Location: Right arm Patient Position: Lying Pulse: 109 105 101 104 Resp: 22 24 16 12 Temp: 36.8 C (98.3 F) TempSrc: Temporal SpO2: 94% 98% 100% Weight: Height: Medications apixaban (Eliquis) tablet 5 mg (has no administration in time range) carvedilol (Coreg) tablet 25 mg ( Oral Dose Auto Held 07/08/24 1700) cholecalciferol (Vitamin D-3) tablet 4,000 Units (has no administration in time range) sodium bicarbonate tablet 1,300 mg (has no administration in time range) mupirocin (Bactroban) 2 % ointment 1 Application (has no administration in time range) ondansetron ODT (Zofran-ODT) disintegrating tablet 4 mg (has no administration in time range) Or ondansetron (Zofran) injection 4 mg (has no administration in time range) hydrALAZINE (Apresoline) tablet 100 mg (has no administration in time range) isosorbide dinitrate (Isordil) tablet 30 mg (has no administration in time range) furosemide (Lasix) injection 80 mg (has no administration in time range) ondansetron (Zofran) injection 4 mg (4 mg IntraVENous Given 07/03/24 1108) morphine injection 4 mg (4 mg IntraVENous Given 07/03/24 1108) ED care was supervised by Dr. Alonso who independently examined and evaluated the patient. Please see their attestation note for further details. In brief, Carlo Medina is a 44 y.o. male who presented to the emergency department for nausea vomiting abdominal pain, shortness of breath. Nursing notes and medical records reviewed, external records reviewed from [facility] cardiology Dr. Zhang on 07/01/2024 assessment and plan per notes as follows: Assessment and Plan: 1. Chronic systolic heart failure (HCC) 2. Essential hypertension 3. Chronic kidney disease, unspecified CKD stage 1. Congestive heart failure: He is near card association class III. He and his significant other seem to have a better understanding of his situation. He plans on weighing himself daily. In the meantime I will start him back on low-dose diuretic and I will optimize his hydralazine. He was placed onhydralazine and isosorbide because of his kidney disease and was not started on ARB or LUCRECIA inhibitor. At this point we will continue to optimize his medicines. Will repeat an echo in 2 months and seehim back afterwards. If he continues to have significant left ventricular dysfunction he will be referred for a defibrillator. 2. Hypertension: Controlled on medicines. 3. Chronic kidney disease stage IIIb. Hospitalization on 06/13/2024 and discharged on 06/21/2024 here at [facility] with hospital course as follows: Hospital Course: patient with acute HFrEF exacerbation and worsening renal function, with IV diuresis, Cardiology and nephrology following. Improvement in volume status, however now worse renal function, nephrology on consult. Repeat echo now with LVEF of 20%, cardiology following. Planned for LHCand RHC on 06/17/24, ruled out coronary disease, deemed non-ischemic cardiomyopathy. Cardiology recommending possible transfer to [facility] to be monitored in heart failure ICU, however patient refused transfer to [facility]. Resumed on Eliquis for newly acute diagnosis of acute DVT in right popliteal soleal and peroneal veins and left peroneal vein. consistently refusing daily lab draws to assess renal function. He is with poor medication compliance outpatient and has been lost to follow up previously. I had lengthy discussion with patient regarding the severity of his current cardiac condition and status. Palliative care on consult for further emphasis and further [facility] discussion as well. He is on GDMTper cardiology recs as tolerated. Renal function improving and tolerated being resumed on PO diuretics. Patient will not have insurance until June 30. He will need close outpatient follow up with cardiology and nephrology and to get established with PCP. He is high risk for re-admission. He is optimized from cardiac standpoint per my discussion with cardiology. He is recommended for close outpatient follow up with PCP, cardiology, and nephrology outpatient in 1- 2 weeks. He is discharged to home in stable condition on 06/21/24. Differential considerations included GERD/cystitis, pancreatitis, colitis, worsening heart failure,pneumonia, etc. Initial medical management includes cardiorespiratory monitoring, IV morphine, IV Zofran, oxygen therapy protocols. On triage patient is stable, oxygen saturation normal, exam is overall reassuring he is not in any distress. Initial workup includes EKG, screening labs, troponin, BNP, chest x-ray, CT abdomen pelvis without contrast. Upon reassessment patient stable feeling slightly better. Lab workup results reviewed, renal function and liver transaminases worsened from comparison, addedRUQ ultrasound. BNP elevated at 21k. CT abdomen per rad shows slight interval ascites, possible RLLinfiltrate however he has no fever or cough. Chest xray showed no luz maria edema no infiltrate per rad. Chronic conditions contributing to patients presentation include CHF. Social determinants to care: none identified Discussed results with him, suspect hepatorenal syndrome associated with poor CHF. He was agreeableto admission. Dicussed with Dr. Mcguire here he recommended HLU at [facility]. I discussed with assembler adjuster and they accepted to HLU under Dr. Villalobos. PROCEDURES: Unless otherwise noted below, none Procedures FINAL IMPRESSION 1. Acute kidney injury superimposed on CKD (HCC) (HCC) 2. Transaminitis 3. History of CHF (congestive heart failure) DISPOSITION Admit 07/03/2024 05:14:56 PM PATIENT REFERRED TO: No follow-up provider specified. DISCHARGE MEDICATIONS: Current Discharge Medication List (Comment: Please note this report has been produced using speech recognition software and may contain errors related to that system including errors in grammar, punctuation, and spelling, as well as words and phrases that may be inappropriate. If there are any questions or concerns please feel freeto contact the dictating provider for clarification.) Meek Dover PA-C (electronically signed) Emergency Medicine Provider Meek Dover PA-C 07/03/242205 Cosigned by Kishore Alonso DO at 07/04/2024 7:10 AM EST [id number] Emergency [facility] Note* Kishore Alonso DO - 07/03/2024 8:50 AM EST Emergency Department Encounter [facility] ED Patient: Carlo Medina : 1980 Date of Evaluation: 07/03/2024 ED Supervising Physician: Kishore Alonso DO I personally evaluated Cralo Medina and made/approved the management plan and take responsibilityfor the patient management. This will serve as my Supervisory note and shared attestation. I did perform a substantive portion of the visit including all aspects of the Medical Decision Making. I wore appropriate PPE for the entirety of this encounter. In brief, Carlo Medina is a 44 y.o. that presents to the emergency department with chief complaint new abdominal distention, discomfort, and shortness of breath. This is in the setting of known history of heart failure. Recently discharged after being admitted for exacerbation. Has been taking Lasix but notes minimal urine output currently. Feels generally swollen. No fevers. No productive cough. Focused exam: Alert and orient x 3. Heart is regular rhythm but tachycardic. Generally ill-appearing. Mild abdominal distention noted. Bilateral pitting lower extremity edema. Brief ED course/MDM: Patient does not have any signs of respiratory distress but does have worsening fluid overload and uptrending creatinine again. Complex/multifactorial condition where Lasix can potentially exacerbate the [place] but patient was also clinically fluid overloaded and does seem to haveworsening transaminitis secondary to the fluid overload. Will need admission for cardiology and nephrology evaluation. All diagnostic, treatment, and disposition decisions were made by myself in conjunction with the [facility]. For all further details of the patient's emergency department visit, please see their documentation. (Comment: Please note this report has been produced using speech recognition software and may contain errors related to that system including errors in grammar, punctuation, and spelling, as well as words and phrases that may be inappropriate. If there are any questions or concerns please feel freeto contact the dictating provider for clarification.) Kishore Alonso DO [employer] Kishore Alonso DO 07/03/24 1218 [facility] [employer] Work Phone: [phone] History of Present illness Narrative* Alex Zhang MD - 07/01/2024 10:45 AM EST [facility] Cardiology [facility] - [address] [facility] [id number] Dept: [phone] Dept Visit type: Established : 1980 Chief Complaint: Chief Complaint Patient presents with Follow-up History of Present Illness: Carlo Medina is a 44 y.o. male who is here as a hospital follow-up. He was in the hospital multiple times in the fall for heart failure. Over the last month he is doing better but still has significant dyspnea on exertion. He has a nonischemic cardiomyopathy. He has no symptoms of angina but doesMarked dyspnea with minimal exertion. He has not had syncope or near syncope. Past Medical History: Past Medical History: Diagnosis Date CHF (congestive heart failure) (HCC) CKD (chronic kidney disease) Hypercholesteremia Hypertension Past Surgical History Past Surgical History: Procedure Laterality Date CARDIAC CATHETERIZATION N/A 06/17/2024 Performed by Akilah Diaz MD at [facility] 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 Family History Family History Problem Relation Name Age of Onset Heart disease Father Heart disease Brother Social History Social History Tobacco Use Smoking status: Never Passive exposure: Never Smokeless tobacco: Never Vaping Use Vaping status: Never Used Substance Use Topics Alcohol use: Never Drug use: Never Allergies: No Known Allergies Medications: Current Outpatient Medications: apixaban (Eliquis) 5 MG tablet, Take 2 tablets (10 mg) by mouth 2 times daily for 3 days, THEN 1 tablet (5 mg) 2 times daily., Disp: 60 tablet, Rfl: 3 carvedilol (Coreg) 25 MG tablet, Take 1 tablet (25 mg) by mouth 2 times daily (with meals)., Disp: 180 tablet, Rfl: 0 cholecalciferol (Vitamin D-3) 50 MCG (2000 UT) tablet, Take 2 tablets (4,000 Units) by mouth daily., Disp: 180 tablet, Rfl: 0 isosorbide dinitrate (Isordil) 20 MG tablet, Take 1.5 tablets (30 mg) by mouth 3 times daily., Disp: 270 tablet, Rfl: 0 sodium bicarbonate 650 MG tablet, Take 2 tablets (1,300 mg) by mouth 2 times daily., Disp: 360 tablet, Rfl: 0 furosemide (Lasix) 20 MG tablet, Take 1 tablet (20 mg) by mouth daily., Disp: 90 tablet, Rfl: 3 hydrALAZINE (Apresoline) 100 MG tablet, Take 1 tablet (100 mg) by mouth 3 times daily., Disp: 270 tablet, Rfl: 3 Review of Systems: Review of Systems Constitutional: Negative for activity change, chills, diaphoresis, fatigue and fever. HENT: Negative for nosebleeds and trouble swallowing. Eyes: Negative for discharge and visual disturbance. Respiratory: Positive for shortness of breath (with any activity/ADL's). Negative for apnea, cough,chest tightness and wheezing. Cardiovascular: Positive for palpitations (occ feels heart racing). Negative for chest pain and legswelling. Gastrointestinal: Negative for abdominal distention, abdominal pain, blood in stool, diarrhea, nausea and vomiting. Endocrine: Negative for cold intolerance and heat intolerance. Genitourinary: Negative for hematuria. Musculoskeletal: Negative for gait problem and myalgias. Skin: Negative for color change and rash. Neurological: Positive for dizziness. Negative for seizures, syncope, facial asymmetry, speech difficulty, weakness, light-headedness, numbness and headaches. Hematological: Does not bruise/bleed easily. Psychiatric/Behavioral: Negative for dysphoric mood. Physical Examination: Vitals: Vitals: 07/01/24 1054 07/01/24 1108 BP: (!) 123/97 (!) 125/92 BP Location: Right arm Right arm Patient Position: Sitting Sitting BP Cuff Size: Adult Adult Pulse: (!) 112 SpO2: 98% Weight: 175 lb (79.4 kg) Height: 6' 1 (1.854 m) Body mass index is 23.09 kg/m . Physical Exam Constitutional: Appearance: Normal appearance. HENT: Head: Normocephalic and atraumatic. Nose: Nose normal. Eyes: General: No scleral icterus. Extraocular Movements: Extraocular movements intact. Pupils: Pupils are equal, round, and reactive to light. Neck: Thyroid: No thyromegaly. Vascular: No carotid bruit or JVD. Cardiovascular: Rate and Rhythm: Normal rate and regular rhythm. Pulses: Normal pulses. Heart sounds: No murmur heard. Gallop present. S3 and S4 sounds present. Pulmonary: Effort: Pulmonary effort is normal. Breath sounds: No wheezing, rhonchi or rales. Chest: Chest wall: No tenderness. Abdominal: General: Abdomen is flat. There is no distension. Palpations: Abdomen is soft. There is no hepatomegaly, splenomegaly or mass. Musculoskeletal: General: No swelling or tenderness. Normal range of motion. Cervical back: No tenderness. Skin: General: Skin is warm. Neurological: General: No focal deficit present. Mental Status: He is alert and oriented to person, place, and time. Cranial Nerves: Cranial nerves 2-12 are intact. No cranial nerve deficit. Psychiatric: Attention and Perception: Attention normal. Mood and Affect: Mood normal. Speech: Speech normal. Behavior: Behavior normal. Laboratory Tests: Lab Results Component Value Date WBC 5.9 06/20/2024 HGB 13.7 06/20/2024 HCT 41.9 06/20/2024 MCV 99.1 (H) 06/20/2024 PLT 202 06/20/2024 Lab Results Component Value Date GLUCOSE 171 (H) 06/20/2024 CALCIUM 7.8 (L) 06/20/2024 NA 135 (L) 06/20/2024 K 3.8 06/20/2024 CO2 22 06/20/2024 CL 104 06/20/2024 BUN 22 (H) 06/20/2024 CREATININE 1.55 (H) 06/20/2024 @LASTCMP@ Lab Results Component Value Date CHOL 130 06/14/2024 CHOL 172 02/29/2024 Lab Results Component Value Date TRIG 68 06/14/2024 TRIG 88 02/29/2024 Lab Results Component Value Date HDL 16 (L) 06/14/2024 HDL 28 (L) 02/29/2024 Lab Results Component Value Date LDLCALC 100 (H) 06/14/2024 LDLCALC 126 (H) 02/29/2024 NT PRO BNP Date Value Ref Range Status 06/20/2024 13,174 (H) <125 pg/mL Final Assessment and Plan: 1. Chronic systolic heart failure (HCC) 2. Essential hypertension 3. Chronic kidney disease, unspecified CKD stage 1. Congestive heart failure: He is near card association class III. He and his significant other seem to have a better understanding of his situation. He plans on weighing himself daily. In the meantime I will start him back on low-dose diuretic and I will optimize his hydralazine. He was placed onhydralazine and isosorbide because of his kidney disease and was not started on ARB or LUCRECIA inhibitor. At this point we will continue to optimize his medicines. Will repeat an echo in 2 months and seehim back afterwards. If he continues to have significant left ventricular dysfunction he will be referred for a defibrillator. 2. Hypertension: Controlled on medicines. 3. Chronic kidney disease stage IIIb. documented in this [facility]01-02-2025 History of Present illness Narrative* Alex Zhang MD - 07/01/2024 10:45 AM EST [facility] Cardiology [facility] - [address] [facility] [address] Dept: [phone] Dept Visit type: Established : 1980 Chief Complaint: Chief Complaint Patient presents with Follow-up History of Present Illness: Carlo Medina is a 44 y.o. male who is here as a hospital follow-up. He was in the hospital multiple times in the fall for heart failure. Over the last month he is doing better but still has significant dyspnea on exertion. He has a nonischemic cardiomyopathy. He has no symptoms of angina but doesMarked dyspnea with minimal exertion. He has not had syncope or near syncope. Past Medical History: Past Medical History: Diagnosis Date CHF (congestive heart failure) (HCC) CKD (chronic kidney disease) Hypercholesteremia Hypertension Past Surgical History Past Surgical History: Procedure Laterality Date CARDIAC CATHETERIZATION N/A 06/17/2024 Performed by Akilah Diaz MD at [facility] 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 Family History Family History Problem Relation Name Age of Onset Heart disease Father Heart disease Brother Social History Social History Tobacco Use Smoking status: Never Passive exposure: Never Smokeless tobacco: Never Vaping Use Vaping status: Never Used Substance Use Topics Alcohol use: Never Drug use: Never Allergies: No Known Allergies Medications: Current Outpatient Medications: apixaban (Eliquis) 5 MG tablet, Take 2 tablets (10 mg) by mouth 2 times daily for 3 days, THEN 1 tablet (5 mg) 2 times daily., Disp: 60 tablet, Rfl: 3 carvedilol (Coreg) 25 MG tablet, Take 1 tablet (25 mg) by mouth 2 times daily (with meals)., Disp: 180 tablet, Rfl: 0 cholecalciferol (Vitamin D-3) 50 MCG (2000 UT) tablet, Take 2 tablets (4,000 Units) by mouth daily., Disp: 180 tablet, Rfl: 0 isosorbide dinitrate (Isordil) 20 MG tablet, Take 1.5 tablets (30 mg) by mouth 3 times daily., Disp: 270 tablet, Rfl: 0 sodium bicarbonate 650 MG tablet, Take 2 tablets (1,300 mg) by mouth 2 times daily., Disp: 360 tablet, Rfl: 0 furosemide (Lasix) 20 MG tablet, Take 1 tablet (20 mg) by mouth daily., Disp: 90 tablet, Rfl: 3 hydrALAZINE (Apresoline) 100 MG tablet, Take 1 tablet (100 mg) by mouth 3 times daily., Disp: 270 tablet, Rfl: 3 Review of Systems: Review of Systems Constitutional: Negative for activity change, chills, diaphoresis, fatigue and fever. HENT: Negative for nosebleeds and trouble swallowing. Eyes: Negative for discharge and visual disturbance. Respiratory: Positive for shortness of breath (with any activity/ADL's). Negative for apnea, cough,chest tightness and wheezing. Cardiovascular: Positive for palpitations (occ feels heart racing). Negative for chest pain and legswelling. Gastrointestinal: Negative for abdominal distention, abdominal pain, blood in stool, diarrhea, nausea and vomiting. Endocrine: Negative for cold intolerance and heat intolerance. Genitourinary: Negative for hematuria. Musculoskeletal: Negative for gait problem and myalgias. Skin: Negative for color change and rash. Neurological: Positive for dizziness. Negative for seizures, syncope, facial asymmetry, speech difficulty, weakness, light-headedness, numbness and headaches. Hematological: Does not bruise/bleed easily. Psychiatric/Behavioral: Negative for dysphoric mood. Physical Examination: Vitals: Vitals: 07/01/24 1054 07/01/24 1108 BP: (!) 123/97 (!) 125/92 BP Location: Right arm Right arm Patient Position: Sitting Sitting BP Cuff Size: Adult Adult Pulse: (!) 112 SpO2: 98% Weight: 175 lb (79.4 kg) Height: 6' 1 (1.854 m) Body mass index is 23.09 kg/m . Physical Exam Constitutional: Appearance: Normal appearance. HENT: Head: Normocephalic and atraumatic. Nose: Nose normal. Eyes: General: No scleral icterus. Extraocular Movements: Extraocular movements intact. Pupils: Pupils are equal, round, and reactive to light. Neck: Thyroid: No thyromegaly. Vascular: No carotid bruit or JVD. Cardiovascular: Rate and Rhythm: Normal rate and regular rhythm. Pulses: Normal pulses. Heart sounds: No murmur heard. Gallop present. S3 and S4 sounds present. Pulmonary: Effort: Pulmonary effort is normal. Breath sounds: No wheezing, rhonchi or rales. Chest: Chest wall: No tenderness. Abdominal: General: Abdomen is flat. There is no distension. Palpations: Abdomen is soft. There is no hepatomegaly, splenomegaly or mass. Musculoskeletal: General: No swelling or tenderness. Normal range of motion. Cervical back: No tenderness. Skin: General: Skin is warm. Neurological: General: No focal deficit present. Mental Status: He is alert and oriented to person, place, and time. Cranial Nerves: Cranial nerves 2-12 are intact. No cranial nerve deficit. Psychiatric: Attention and Perception: Attention normal. Mood and Affect: Mood normal. Speech: Speech normal. Behavior: Behavior normal. Laboratory Tests: Lab Results Component Value Date WBC 5.9 06/20/2024 HGB 13.7 06/20/2024 HCT 41.9 06/20/2024 MCV 99.1 (H) 06/20/2024 PLT 202 06/20/2024 Lab Results Component Value Date GLUCOSE 171 (H) 06/20/2024 CALCIUM 7.8 (L) 06/20/2024 NA 135 (L) 06/20/2024 K 3.8 06/20/2024 CO2 22 06/20/2024 CL 104 06/20/2024 BUN 22 (H) 06/20/2024 CREATININE 1.55 (H) 06/20/2024 @LASTCMP@ Lab Results Component Value Date CHOL 130 06/14/2024 CHOL 172 02/29/2024 Lab Results Component Value Date TRIG 68 06/14/2024 TRIG 88 02/29/2024 Lab Results Component Value Date HDL 16 (L) 06/14/2024 HDL 28 (L) 02/29/2024 Lab Results Component Value Date LDLCALC 100 (H) 06/14/2024 LDLCALC 126 (H) 02/29/2024 NT PRO BNP Date Value Ref Range Status 06/20/2024 13,174 (H) <125 pg/mL Final Assessment and Plan: 1. Chronic systolic heart failure (HCC) 2. Essential hypertension 3. Chronic kidney disease, unspecified CKD stage 1. Congestive heart failure: He is near card association class III. He and his significant other seem to have a better understanding of his situation. He plans on weighing himself daily. In the meantime I will start him back on low-dose diuretic and I will optimize his hydralazine. He was placed onhydralazine and isosorbide because of his kidney disease and was not started on ARB or LUCRECIA inhibitor. At this point we will continue to optimize his medicines. Will repeat an echo in 2 months and seehim back afterwards. If he continues to have significant left ventricular dysfunction he will be referred for a defibrillator. 2. Hypertension: Controlled on medicines. 3. Chronic kidney disease stage IIIb. documented in this [facility]01-02-2025 History of Present illness Narrative* Alex Zhang MD - 07/01/2024 10:45 AM EST [facility] Cardiology [facility] - [place] [address] [place] [address] [facility] [address] Dept: [phone] Dept Visit type: Established : 1980 Chief Complaint: Chief Complaint Patient presents with Follow-up History of Present Illness: Carlo Medina is a 44 y.o. male who is here as a hospital follow-up. He was in the hospital multiple times in the fall for heart failure. Over the last month he is doing better but still has significant dyspnea on exertion. He has a nonischemic cardiomyopathy. He has no symptoms of angina but doesMarked dyspnea with minimal exertion. He has not had syncope or near syncope. Past Medical History: Past Medical History: Diagnosis Date CHF (congestive heart failure) (HCC) CKD (chronic kidney disease) Hypercholesteremia Hypertension Past Surgical History Past Surgical History: Procedure Laterality Date CARDIAC CATHETERIZATION N/A 06/17/2024 Performed by Akilah Diaz MD at [facility] 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 Family History Family History Problem Relation Name Age of Onset Heart disease Father Heart disease Brother Social History Social History Tobacco Use Smoking status: Never Passive exposure: Never Smokeless tobacco: Never Vaping Use Vaping status: Never Used Substance Use Topics Alcohol use: Never Drug use: Never Allergies: No Known Allergies Medications: Current Outpatient Medications: apixaban (Eliquis) 5 MG tablet, Take 2 tablets (10 mg) by mouth 2 times daily for 3 days, THEN 1 tablet (5 mg) 2 times daily., Disp: 60 tablet, Rfl: 3 carvedilol (Coreg) 25 MG tablet, Take 1 tablet (25 mg) by mouth 2 times daily (with meals)., Disp: 180 tablet, Rfl: 0 cholecalciferol (Vitamin D-3) 50 MCG (1999 UT) tablet, Take 2 tablets (4,000 Units) by mouth daily., Disp: 180 tablet, Rfl: 0 isosorbide dinitrate (Isordil) 20 MG tablet, Take 1.5 tablets (30 mg) by mouth 3 times daily., Disp: 270 tablet, Rfl: 0 sodium bicarbonate 650 MG tablet, Take 2 tablets (1,300 mg) by mouth 2 times daily., Disp: 360 tablet, Rfl: 0 furosemide (Lasix) 20 MG tablet, Take 1 tablet (20 mg) by mouth daily., Disp: 90 tablet, Rfl: 3 hydrALAZINE (Apresoline) 100 MG tablet, Take 1 tablet (100 mg) by mouth 3 times daily., Disp: 270 tablet, Rfl: 3 Review of Systems: Review of Systems Constitutional: Negative for activity change, chills, diaphoresis, fatigue and fever. HENT: Negative for nosebleeds and trouble swallowing. Eyes: Negative for discharge and visual disturbance. Respiratory: Positive for shortness of breath (with any activity/ADL's). Negative for apnea, cough,chest tightness and wheezing. Cardiovascular: Positive for palpitations (occ feels heart racing). Negative for chest pain and legswelling. Gastrointestinal: Negative for abdominal distention, abdominal pain, blood in stool, diarrhea, nausea and vomiting. Endocrine: Negative for cold intolerance and heat intolerance. Genitourinary: Negative for hematuria. Musculoskeletal: Negative for gait problem and myalgias. Skin: Negative for color change and rash. Neurological: Positive for dizziness. Negative for seizures, syncope, facial asymmetry, speech difficulty, weakness, light-headedness, numbness and headaches. Hematological: Does not bruise/bleed easily. Psychiatric/Behavioral: Negative for dysphoric mood. Physical Examination: Vitals: Vitals: 07/01/24 1054 07/01/24 1108 BP: (!) 123/97 (!) 125/92 BP Location: Right arm Right arm Patient Position: Sitting Sitting BP Cuff Size: Adult Adult Pulse: (!) 112 SpO2: 98% Weight: 175 lb (79.4 kg) Height: 6' 1 (1.854 m) Body mass index is 23.09 kg/m . Physical Exam Constitutional: Appearance: Normal appearance. HENT: Head: Normocephalic and atraumatic. Nose: Nose normal. Eyes: General: No scleral icterus. Extraocular Movements: Extraocular movements intact. Pupils: Pupils are equal, round, and reactive to light. Neck: Thyroid: No thyromegaly. Vascular: No carotid bruit or JVD. Cardiovascular: Rate and Rhythm: Normal rate and regular rhythm. Pulses: Normal pulses. Heart sounds: No murmur heard. Gallop present. S3 and S4 sounds present. Pulmonary: Effort: Pulmonary effort is normal. Breath sounds: No wheezing, rhonchi or rales. Chest: Chest wall: No tenderness. Abdominal: General: Abdomen is flat. There is no distension. Palpations: Abdomen is soft. There is no hepatomegaly, splenomegaly or mass. Musculoskeletal: General: No swelling or tenderness. Normal range of motion. Cervical back: No tenderness. Skin: General: Skin is warm. Neurological: General: No focal deficit present. Mental Status: He is alert and oriented to person, place, and time. Cranial Nerves: Cranial nerves 2-12 are intact. No cranial nerve deficit. Psychiatric: Attention and Perception: Attention normal. Mood and Affect: Mood normal. Speech: Speech normal. Behavior: Behavior normal. Laboratory Tests: Lab Results Component Value Date WBC 5.9 06/20/2024 HGB 13.7 06/20/2024 HCT 41.9 06/20/2024 MCV 99.1 (H) 06/20/2024 PLT 202 06/20/2024 Lab Results Component Value Date GLUCOSE 171 (H) 06/20/2024 CALCIUM 7.8 (L) 06/20/2024 NA 135 (L) 06/20/2024 K 3.8 06/20/2024 CO2 22 06/20/2024 CL 104 06/20/2024 BUN 22 (H) 06/20/2024 CREATININE 1.55 (H) 06/20/2024 @LASTP@ Lab Results Component Value Date CHOL 130 06/14/2024 CHOL 172 02/29/2024 Lab Results Component Value Date TRIG 68 06/14/2024 TRIG 88 02/29/2024 Lab Results Component Value Date HDL 16 (L) 06/14/2024 HDL 28 (L) 02/29/2024 Lab Results Component Value Date LDLCALC 100 (H) 06/14/2024 LDLCALC 126 (H) 02/29/2024 NT PRO BNP Date Value Ref Range Status 06/20/2024 13,174 (H) <125 pg/mL Final Assessment and Plan: 1. Chronic systolic heart failure (HCC) 2. Essential hypertension 3. Chronic kidney disease, unspecified CKD stage 1. Congestive heart failure: He is near card association class III. He and his significant other seem to have a better understanding of his situation. He plans on weighing himself daily. In the meantime I will start him back on low-dose diuretic and I will optimize his hydralazine. He was placed onhydralazine and isosorbide because of his kidney disease and was not started on ARB or LUCRECIA inhibitor. At this point we will continue to optimize his medicines. Will repeat an echo in 2 months and seehim back afterwards. If he continues to have significant left ventricular dysfunction he will be referred for a defibrillator. 2. Hypertension: Controlled on medicines. 3. Chronic kidney disease stage IIIb. documented in this [facility]01-02-2025 Miscellaneous Notes* Addendum Note - THOMAS Alvarez CNP - 07/01/2024 10:45 AM ESTAddended by: SEPIDEH TOWNSEND on: 08/20/2024 04:37 PM Modules accepted: Orders documented in this [facility]01-02-2025 Note* Addendum Note - THOMAS Alvarez CNP - 07/01/2024 10:45 AM ESTAddended by: SEPIDEH TOWNSEND on: 08/20/2024 04:37 PM Modules accepted: [facility] Phone: [phone] Note* Addendum Note - THOMAS Alvarez CNP - 07/01/2024 10:45 AM ESTAddended by: SEPIDEH TOWNSEND on: 08/20/2024 04:37 PM Modules accepted: [facility] Phone: [phone] 315-494212-26-2024 Miscellaneous Notes* Telephone Encounter - Kaitlin Gonzalez LPN - 06/24/2024 10:08 AM EST Date/Time patient contacted: 06/24/24 Has a follow up appointment been made with your primary care provider? (If yes, note date/time of appt. If no, are we able to schedule or get patient in contact with provider): will call Have your prescriptions been filled: (If no, why not, contact pharmacist if needed): yes Now that you are home, I want to make sure that you understand the most important things about taking care of yourself. I see that you were discharged with a diagnosis of Acute HFrEF (heart failure with reduced ejection fraction) , do you know what symptoms or health problems to watch for or when to call your provider: yes Do you have any other questions about your discharge or follow up care instructions? (if yes, what): no Are there any caregivers from the hospital that you would like to recognize or compliment: no documented in this [facility]12-26-2024 Telephone encounter Note* Telephone Encounter - Kaitlin Gonzalez LPN - 06/24/2024 10:08 AM EST Date/Time patient contacted: 06/24/24 Has a follow up appointment been made with your primary care provider? (If yes, note date/time of appt. If no, are we able to schedule or get patient in contact with provider): will call Have your prescriptions been filled: (If no, why not, contact pharmacist if needed): yes Now that you are home, I want to make sure that you understand the most important things about taking care of yourself. I see that you were discharged with a diagnosis of Acute HFrEF (heart failure with reduced ejection fraction) , do you know what symptoms or health problems to watch for or when to call your provider: yes Do you have any other questions about your discharge or follow up care instructions? (if yes, what): no Are there any caregivers from the hospital that you would like to recognize or compliment: no [id number] Telephone encounter Note* Telephone Encounter - Kaitlin Gonzalez LPN - 06/22/2024 10:17 AM EST S: Patient admitted to: [facility] 06/13/24 B: Discharged on : 06/21/24 A: Hospital follow up call initiated to discuss any medication changes, follow up appointments and discharge instructions: Acute HFrEF (heart failure with reduced ejection fraction) R: No contact x 1 at : [phone] [id number] Miscellaneous Notes* Telephone Encounter - Kaitlin Gonzalez LPN - 06/22/2024 10:17 AM EST S: Patient admitted to: [facility] 06/13/24 B: Discharged on : 06/21/24 A: Hospital follow up call initiated to discuss any medication changes, follow up appointments and discharge instructions: Acute HFrEF (heart failure with reduced ejection fraction) R: No contact x 1 at : [phone] documented in this [facility]SD[facility] HospitalRzcrjb12-91-9782 Nurse Note* Chloé Chilel RN - 06/21/2024 2:52 PM EST Gave patient discharge instructions. Patient verbalized understanding. Discussed the importance of taking the medications as prescribed. Importance of following up with Dr. Burnette and Dr Mccullough. IV discontinued. Meds to beds delivered scripts. [id number] Nurse Note* Chloé Chilel RN - 06/21/2024 2:52 PM EST Gave patient discharge instructions. Patient verbalized understanding. Discussed the importance of taking the medications as prescribed. Importance of following up with Dr. Burnette and Dr Mccullough. IV discontinued. Meds to beds delivered scripts. * Tamiko Live RN - 06/21/2024 1:[address] Mcguire and Gaby Marcano APRN from cardiology regarding 20 beat run of VT through message. ] * Juliet Canchola RN - 06/18/2024 12:41 PM EST Patient refusing troponin blood draw at this time. * Kae Vela RN - 06/18/2024 6:41 AM EST Patient had ST elevation on two leads, I called Dr. Jeter EKG done and showed ST elevation, and sinus tachycardia, with no symptoms or chest pain. Patient refused blood work again to check his troponin, BNP, and magnesium levels. IV is edematous and patient needs a new IV if not discharged. * Juliet Canchola RN - 06/17/2024 2:17 PM EST Patient had a twenty second run of vtach caught on tele monitor. Dr. Mcguire and Gaby Marcano DOUGHNUT MACHINE OPERATOR HELPER forcardiology notified. No new orders at this time. * Juliet Canchola RN - 06/17/2024 2:00 PM EST VascBand removed from right radial site. All air removed per order (2ml every fifteen mins removed from site.) Site is dry, clean, and intact. No signs of bleeding or hematoma at site. 2+ pulses in RUE at this time. Cap refill less than three seconds. Patient reports normal sensation in right hand at this time. * Radha Acevedo RN - 06/16/2024 9:28 AM EST Had discussion with pt regarding his heart cath. This pt expressed that he is scared to have the procedure and is not going to go through with it at this time. Pt educated on need of heart cath and talked about pt's feelings regarding heart cath. Pt states I will do it another time, but I am not doing it right now. Pt was agreeable to let me draw morning labs as he refused for nightshift. Radha Acevedo RN * Emerald Allan RN - 06/15/2024 3:09 AM EST Patient is resting in bed. Bed in low position and locked with call light in reach. documented in this [facility]12-23-2024 [facility] 06-21-2024 Hospital course Narrative* Sergei Mcguire DO - 06/21/2024 1:54 PM EST Hospitalist Discharge Summary Carlo Medina : 1980 Admit date: 06/13/2024 Discharge date: 06/21/2024 Admitting Physician: Serg Celaya MD Primary Care Physician: No primary care provider on file. Visit Status: admission Code Status: Full Code Discharge Diagnoses: Acute HFrEF, LVEF of 20% SCHUYLER on CKD stage 3 Non-ischemic cardiomyopathy Acute DVT in right popliteal soleal and peroneal veins Acute DVT in left peroneal vein Hyperkalemia, resolved Upper abdominal pain, resolved HTN HLD Poor medication compliance Non-sustained VT and intermittent left bundle branch block Hospital Course: patient with acute HFrEF exacerbation and worsening renal function, with IV diuresis, Cardiology and nephrology following. Improvement in volume status, however now worse renal function, nephrology on consult. Repeat echo now with LVEF of 20%, cardiology following. Planned for LHC and RHC on 06/17/24, ruled out coronary disease, deemed non-ischemic cardiomyopathy. Cardiology recommending possible transfer to [facility] to be monitored in heart failure ICU, however patient refused transfer to [facility]. Resumed on Eliquis for newly acute diagnosis of acute DVT in right popliteal soleal andperoneal veins and left peroneal vein. consistently refusing daily lab draws to assess renal function. He is with poor medication compliance outpatient and has been lost to follow up previously. I had lengthy discussion with patient regarding the severity of his current cardiac condition and status. Palliative care on consult for further emphasis and further GOC discussion as well. He is on GDMT per cardiology recs as tolerated. Renal function improving and tolerated being resumed on PO diuretics. Patient will not have insurance until June 30. He will need close outpatient follow up with cardiology and nephrology and to get established with PCP. He is high risk for re-admission. He is optimized from cardiac standpoint per my discussion with cardiology. He is recommended for close outpatient follow up with PCP, cardiology, and nephrology outpatient in 1- 2 weeks. He is discharged to home in stable condition on 06/21/24. Consults: IP CONSULT TO HEART FAILURE NURSE/COORDINATOR IP CONSULT TO DIETITIAN IP CONSULT TO CARDIOLOGY IP CONSULT TO NEPHROLOGY IP CONSULT TO PALLIATIVE CARE Discharge Instructions: Diet: Adult diet Regular; Low Fat/Low Chol/High Fiber/2 gm Na Activity: as tolerated Recommended Outpatient Tests: Disposition: Patient discharged in stable condition to home LABS: CBC: Recent Labs 06/20/24 0942 WBC 5.9 RBC 4.23* HGB 13.7 HCT 41.9 MCV 99.1* RDW 13.6 PLT 202 BMP: Recent Labs 06/20/24 0942 NA 135* K 3.8 CL 104 CO2 22 BUN 22* CREATININE 1.55* GLUCOSE 171* CALCIUM 7.8* ANIONGAP 9 LIVER PROFILE:No results for input(s): AST, ALT, BILITOT, ALKPHOS, PROT in the last 72 hours. No lab exists for component: LABALBU PT/INR: No results for input(s): PROTIME, INR in the last 72 hours. CARDIAC ENZYMES: No results for input(s): TROPONINI in the last 72 hours. Procalcitonin: No results found for: PROCAL COVID-19 PCR: No results for input(s): COVID19 in the last 72 hours. Vitals: BP 116/83 (BP Location: Left arm, Patient Position: Lying) Pulse 102 Temp 36.6 C (97.9 F) (Temporal) Resp 18 Ht 6' 1 (1.854 m) Wt 167 lb 11.2 oz (76.1 kg) SpO2 98% BMI 22.13 kg/m Pulse Ox: SpO2 Av.5 % Min: 94 % Max: 98 % Supplemental O2: General appearance: No apparent distress, appears stated age and cooperative with exam Respiratory: CTA BL Cardiovascular: Regular rate and rhythm with no murmur Abdomen: Soft, non-tender, non-distended Skin: Skin color, texture, turgor normal. No rashes or lesions. Distal pulses present, trace-1+ BL LE edema present. Neurologic: grossly non-focal. Discharge Medications: Medication List START taking these medications apixaban 5 MG tablet Commonly known as: Eliquis Take 2 tablets (10 mg) by mouth 2 times daily for 3 days, THEN 1 tablet (5 mg) 2 times daily. Start taking on: June 21, 2024 pantoprazole 40 MG EC tablet Commonly known as: ProtoNix Take 1 tablet (40 mg) by mouth 2 times daily (before meals). Do not crush, chew, or split. CHANGE how you take these medications hydrALAZINE 25 MG tablet Commonly known as: Apresoline Take 2 tablets (50 mg) by mouth 3 times daily. What changed: how much to take isosorbide dinitrate 20 MG tablet Commonly known as: Isordil Take 1.5 tablets (30 mg) by mouth 3 times daily. What changed: how much to take CONTINUE taking these medications carvedilol 25 MG tablet Commonly known as: Coreg Take 1 tablet (25 mg) by mouth 2 times daily (with meals). cholecalciferol 50 MCG (2000 UT) tablet Commonly known as: Vitamin D-3 Take 2 tablets (4,000 Units) by mouth daily. furosemide 40 MG tablet Commonly known as: Lasix sodium bicarbonate 650 MG tablet Take 2 tablets (1,300 mg) by mouth 2 times daily. STOP taking these medications clopidogrel 75 MG tablet Commonly known as: Plavix Where to Get Your Medications These medications were sent to [facility] [address] [facility] [id number] Hours: Friday to Friday 10 am to 6 pm apixaban 5 MG tablet hydrALAZINE 25 MG tablet isosorbide dinitrate 20 MG tablet pantoprazole 40 MG EC tablet Recommended Follow-up: Cardiology, nephrology, PCP outpatient in 1-2 weeks. @[email or web address]@ Complexity of Follow up: [] Moderate Complexity: follow up within 7-14 calendar days (69182) [x] Severe Complexity: follow up within 7 calendar days (76708) Follow up Testing, Pending results or Referrals at Transitional Care Visit: [x] yes [] no Instructions to MA: Please call patient on day after discharge (must document patient contacted within 2 business days of discharge). Follow up questions for MA: 1. Did you get medications filled and taking them as instructed from discharge? 2. Are you following your discharge instructions from your hospital stay? 3. Please confirm patient is scheduled for a follow up appointment within the above time frame. Signed: Sergei Mcguire DO [facility] 06/21/2024, 1:54 PM Total time Spent on Discharge: 32 minutes documented in this [facility]12-23-2024 History of Present illness Narrative* Jia Santoro MD - 06/21/2024 1:44 PM EST Telemetry reviewed. No evidence of VT seen on telemetry strips sent by RN. P waves precede each QRScomplex. Patient with known intermittent LBBB. Potassium and Magnesium normal. Continue with current management. Jia Santoro MD Department of Cardiovascular Disease [facility] [place] 1:46 PM 06/21/24 * Maritza Linn, THOMAS - WHITING MACHINE OPERATOR - 06/21/2024 11:47 AM EST [facility] Progress Note Subjective/ 44 y.o. year old male who we are seeing in consultation for SCHUYLER/CKD. NAEON Resting in bed No edema S/p LHC + RHC 06/17 Continues to refuse labs/rx often Appetite fair BP is stable No issues with UOP No other new issues at this time ROS done and negative unless mentioned as above No change in PFSH All data labs/interval notes and overnight issues are reviewed Objective/ Vitals: 06/20/24 1935 06/20/24 2332 06/21/24 0344 06/21/24 0736 BP: 106/76 108/77 108/78 116/81 BP Location: Left arm Right arm Left arm Left arm Patient Position: Lying Lying Lying Lying Pulse: 53 56 52 101 Resp: 18 18 18 18 Temp: 36.5 C (97.7 F) 36.4 C (97.5 F) 36.4 C (97.6 F) 36.4 C (97.6 F) TempSrc: Temporal Temporal Temporal Temporal SpO2: 97% 96% 94% 97% Weight: 76.1 kg (167 lb 11.2 oz) Height: Intake/Output Summary (Last 24 hours) at 06/21/2024 1147 Last data filed at 06/20/2024 1750 Gross per 24 hour Intake 650 ml Output -- Net 650 ml apixaban, 10 mg, Oral, BID Followed by [START ON 06/24/2024] apixaban, 5 mg, Oral, BID carvedilol, 25 mg, Oral, BID WC cholecalciferol, 4,000 Units, Oral, Daily furosemide, 40 mg, Oral, Daily hydrALAZINE, 50 mg, Oral, TID influenza, 0.5 mL, IntraMUSCular, Prior to discharge isosorbide dinitrate, 30 mg, Oral, TID magnesium hydroxide, 30 mL, Oral, Nightly pantoprazole, 40 mg, Oral, BID AC sodium bicarbonate, 1,300 mg, Oral, BID PRN medications: acetaminophen OR acetaminophen, ondansetron ODT OR ondansetron, polyethylene glycol (PEG) 3350 Constitutional: Alert, awake Eyes: No icterus, no pallor HEENT: no pallor/cyanosis or icterus Cardiovascular: S1, S2 without m/r/g Respiratory: CTA B without w/r/r GI: +bs, soft, nt : agustin -ve Ext: no LE edema Neck: supple, no thyroid enlargement, no JVD elevation Skin: warm, moist, no rashes Data: Results from last 7 days Lab Units 06/20/24 0942 06/18/24 1039 06/16/24 0918 SODIUM mmol/L 135* 136 140 POTASSIUM mmol/L 3.8 4.0 3.9 CHLORIDE mmol/L 104 102 104 CO2 mmol/L 22 25 27 BUN mg/dL 22* 30* 31* CREATININE mg/dL 1.55* 1.91* 1.91* GLUCOSE mg/dL 171* 173* 107* CALCIUM mg/dL 7.8* 7.9* 8.3* Results from last 7 days Lab Units 06/20/24 0942 06/18/24 1039 06/16/24 0918 WBC AUTO 10*3/uL 5.9 5.0 5.5 HEMOGLOBIN g/dL 13.7 15.0 15.6 HEMATOCRIT % 41.9 46.5 47.5 PLATELETS 10*3/uL 202 220 195 Assessment/Plan SCHUYLER/ATN, possibly 2/2 volume depletion from over-diuresis vs CRS (N17.0) Acute on chronic HFrEF exacerbation (I50.23) Severe protein calorie malnutrition (E43) Noncompliance with medication (Z91.1) Abdominal pain CKD3b Acute BLE DVTs Plan: -Renal function stable per labs 06/20 -Ok for diuresis from renal standpoint, agree with lasix 40 mg daily -No s/s of KELSIE from [facility], now outside of window for potential injury -Needs daily standing weights and strict I&Os -Counseled for need of daily weights in the outpatient setting -Avoid nephrotoxins and contrast dye -Dose all meds per current eGFR -Anticoagulation per primary team -Complex MDM -High risk of decompensation and readmission to the hospital is noncompliance with medications/labscontinue upon discharge -All other care per primary team -Ok for discharge planning from renal standpoint, outpatient BMP ordered and needs close follow up with nephrology in 1 week -We will follow closely with you Thank you for the consult and the opportunity to participate in the care of this patient. Please donot hesitate to contact us with any questions or concerns. Maritza Linn, CURRICULUM DIRECTOR, WHITING MACHINE OPERATOR [facility], [facility] [phone] Cosigned by Anand Mccullough MD at 06/21/2024 1:47 PM EST Associated attestation - Anand Mccullough MD - 06/21/2024 1:47 PM EST I have reviewed the above assessment and plan with the DOUGHNUT MACHINE OPERATOR HELPER. I agree with above note. Lasix per cardiology. Cr stable. * Sergei Mcguire DO - 06/21/2024 10:04 AM EST Hospitalist Progress Note 06/21/[id number]: Please page me ([phone]) for patient care issues. [phone]: Please page [facility] Hospitalist for any issues. Subjective: Admit Date: 06/13/2024 PCP: No primary care provider on file. Room#: B2-243/B2-243 A Interval History: patient admitted for acute CHF exacerbation. No overnight issues. Denies chest pain, sob, abdominal pain, nausea, vomiting, diarrhea, constipation, fevers, or chills. Reports breathing easier, tolerating PO intake well. Reports ambulating ok without much CARRERA. Adult diet Regular; Low Fat/Low Chol/High Fiber/2 gm Na 24HR INTAKE/OUTPUT: Intake/Output Summary (Last 24 hours) at 06/21/2024 1004 Last data filed at 06/20/2024 1750 Gross per 24 hour Intake 650 ml Output -- Net 650 ml Past Medical History: Past Medical History: Diagnosis Date CHF (congestive heart failure) (HCC) CKD (chronic kidney disease) Hypercholesteremia Hypertension LABS: CBC: Recent Labs 06/18/24 1039 06/20/24 0942 WBC 5.0 5.9 RBC 4.66 4.23* HGB 15.0 13.7 HCT 46.5 41.9 MCV 99.8* 99.1* RDW 13.9 13.6 PLT 220 202 BMP: Recent Labs 06/18/24 1039 06/20/24 0942 NA 136 135* K 4.0 3.8 CL 102 104 CO2 25 22 BUN 30* 22* CREATININE 1.91* 1.55* GLUCOSE 173* 171* CALCIUM 7.9* 7.8* ANIONGAP 9 9 LIVER PROFILE: No results for input(s): AST, ALT, BILITOT, ALKPHOS, PROT in the last 72 hours. No lab exists for component: LABALBU PT/INR: No results for input(s): PROTIME, INR in the last 72 hours. CARDIAC ENZYMES: No results for input(s): TROPONINI in the last 72 hours. Procalcitonin: No results found for: PROCAL COVID-19 PCR: No results for input(s): COVID19 in the last 72 hours. Objective: Vitals: BP 116/81 (BP Location: Left arm, Patient Position: Lying) Pulse 101 Temp 36.4 C (97.6 F) (Temporal) Resp 18 Ht 6' 1 (1.854 m) Wt 167 lb 11.2 oz (76.1 kg) SpO2 97% BMI 22.13 kg/m Pulse Ox: SpO2 Av.8 % Min: 94 % Max: 100 % Supplemental O2: General appearance: No apparent distress, appears stated age and cooperative with exam Respiratory: CTA BL Cardiovascular: Regular rate and rhythm with no murmur Abdomen: Soft, non-tender, non-distended Skin: Skin color, texture, turgor normal. No rashes or lesions. Distal pulses present, 1+ BL LE edema present. Neurologic: grossly non-focal. Medications: apixaban, 10 mg, Oral, BID Followed by [START ON 06/24/2024] apixaban, 5 mg, Oral, BID carvedilol, 25 mg, Oral, BID WC cholecalciferol, 4,000 Units, Oral, Daily hydrALAZINE, 50 mg, Oral, TID influenza, 0.5 mL, IntraMUSCular, Prior to discharge isosorbide dinitrate, 30 mg, Oral, TID magnesium hydroxide, 30 mL, Oral, Nightly pantoprazole, 40 mg, Oral, BID AC sodium bicarbonate, 1,300 mg, Oral, BID torsemide, 10 mg, Oral, Daily Assessment Acute HFrEF LVEF of 20% SCHUYLER on CKD stage 3 Non-ischemic cardiomyopathy Nephrology and cardiology on consult Worsening renal function in setting of IV diuresis Volume status improving Strict I/O's, daily weight Monitor on telemetry GDMT per cardiology. LHC and RHC on on 06/17/24. Lifevest per cardiology. Acute DVT of right popliteal, soleal and peroneal veins Acute DVT of right peroneal veins Eliquis 5mg po BID Hyperkalemia S/p kayexalate and IV lasix, resolved Upper abdominal pain CT Abdomen and pelvis negative Improved with PPI HTN HLD Home medications reviewed and resumed as indicated Medical Decision Making 06/15/24: patient with acute HFrEF exacerbation and worsening renal function, with IV diuresis, Cardiology and nephrology following. Improvement in volume status, however now with worse renal function. Hold off on further diuresis per nephrology recs. Repeat echo now with LVEF of 20%, cardiology following, plan for LHC and RHC tomorrow. CBC and BMP in the AM. Monitor on telemetry, Strict I/O's daily weights. 06/16/24: patient refused LHC and RHC today, claiming that he was fearful of the procedure and did not want procedure done in his groin. Discussed high recommendations to further evaluate cardiac function and that he is at elevated risk of further compromise of cardiac function, patient voiced understanding. Cr improved to 1.91 today. Nephrology following, respiratory status and volume status arestable. Continue to hold diuretics. CBC and CMP in the AM. 06/17/24: patient now agreeable to have LHC and RHC today. Cardiology following, no labs obtained this morning, unsure why. Further recs from cardiology following heart cath today. Nephrology following. Continue to hold diuresis for now. CBC and BMP in the AM. 06/18/24: patient again refused labs today, however now agreeable to have them drawn to assess for renal function. Holding diuresis again today per nephrology until labs can be reviewed. Still with significant CARRERA, lifevest per cardiology. Cardiology recommending possible transfer to [facility] to be monitored in heart failure ICU, however patient is refusing. Resumed on Eliquis following heart cath yesterday. LHC and RHC ruled out coronary disease, deemed non-ischemic cardiomyopathy. CBC and BMP in the AM. 06/19/24: he is consistently refusing daily lab draws to assess renal function. Discussed with bothnephrology and cardiology today. Patient behavior is concerning for poor follow up and poor adherence to medical therapy management. Palliative care on consult for goals of care. Had another lengthy discussion with patient regarding the severity of his current cardiac condition and status. He does not seem to have significant insight or lacks understanding regarding his elevated risk of sudden cardiac . He is at significant risk for readmission. Continue GDMT as tolerated. Again, encouraged patient to allow nursing to obtain blood for labs to be checked. CBC and BMP in the AM. 06/20/24: patient renal function improving. Cr of 1.55 today, defer diuresis to nephrology. He is nearly euvolemic on examination. Palliative care on consult. Patient will not have insurance until June 30. He will need close outpatient follow up with cardiology and nephrology and to get established with PCP. CBC and BMP in the AM. 06/21/24: patient with acute HFrEF exacerbation and worsening renal function, with IV diuresis, Cardiology and nephrology following. Improvement in volume status, however now with worse renal function, nephrology following, nearly euvolemic at this point, started back up on PO diuretics. He is verypoorly compliant on follow up and medication regimen at home as documented by cardiologly. LHC and RHC on 06/17/24 ruled out coronary disease, deemed non- ischemic cardiomyopathy. Consistently refusing morning lab draws. Palliative care yesterday for [facility] given his poor compliance. He is high risk for re- admission. Nephrology and cardiology following, he will need very close follow up with both specialties outpatient once patient has insurance starting June 30 2024. CM following. -am labs, replace lytes prn -increase activity -resume home medications as indicated -DVT prophylaxis: [] Lovenox [] Heparin [] SCDs [x] Encourage ambulation [x] Already on Anticoagulation Anticipated Discharge - Date - 06/21 vs 06/22 - Location - Home - Pending the following - stable cardiac and renal function, clearance by consultants. Toxic drug monitoring/narrow therapeutic index drug monitoring : # Drug name : # Route administered : # Method of monitoring : Extended Emergency Contact Information Primary Emergency Contact: Indira Medina Mobile Relation: Sister Secondary Emergency Contact: Kaitlin Hicks Mobile Relation: Significant Other Sergei Mcguire DO Division of Hospitalist Medicine Inpatient Medical Services/[facility] PAGER: Epic chat * Gaby Marcano APRN - VIKKI - 06/21/2024 8:17 AM EST [facility] Cardiology /Electrophysiology Progress Note HPI / Interval History: Carlo Medina is a 44 y.o. year old male patient with new diagnosis heart failure with reduced ejection fraction January 2024 with 5 hospital admissions since that time. I have been multiple compliance issues as well as financial issues with patient being self-pay, and difficulties in guideline directed medical therapy due to CKD as well as noncompliance. This admission we did have him go for a left heart cath and right heart cath, which showed clean coronaries, and was deemed not on ischemic cardiomyopathy. Cardiac index is less than 2. With for cardiac output he was recommended admission tothe HLU/HF-ICU at [facility], however refused transfer for. Possible etiologies are prolonged uncontrolledhypertension over the years as well as genetic component. Father has a history of sudden cardiac and heart failure, one of his brothers has heart failure. Please review all prior cardiology notes. Over the last 5 admissions he has been seen by multiple cardiologists and providers, and we have done ample education with both him, his girlfriend, and his brother. At this point we have titrated his guideline directed medical therapy as much as we are able, with limitations from patient refusal with certain adjustments, as well as CKD. He is no longer willing to stay in the hospital. And again as above he is also not willing to transfer to [facility] for a higher level of care. He has been noted by multiple providers to be very high risk. Because of the compliance issues we asked palliative care to see him to make sure that we are all on the same page with his goals of careand CODE STATUS. This morning he denies chest pain, shortness of breath, PND, orthopnea, palpitations, and edema. Heis asking to go home. Assessment/Plan HF NYHA Class [] I [] II [] III [x] IV []Unable to assess [] N/A Acute on chronic heart failure with reduced ejection fraction (LVEF 20% 05/2024). Nonischemic. -Left heart cath 06/17/2024 ruled out coronary disease -Right heart cath 06/17/2024 showed very low cardiac output with cardiac index is less than 2 -He was recommended transfer to HLU/HF-ICU at [facility] for more aggressive management of his heart failure, however has declined multiple times -Possible etiologies include poorly controlled hypertension for years and/or genetic (father - sudden cardiac , brother - HF, alive). -Continues on carvedilol 25 mg twice daily -Continues on hydralazine 50 mg 3 times daily -Continues on Isordil 30 mg 3 times daily -No ACEi/ARB/ARNI, MRA, or SGLT2i due to CKD -His home-going diuretic is currently listed as Lasix 40 mg once daily. He reports noncompliance with this prior to hospitalization. There was discussion of him going home on torsemide 10 mg daily, however he tells me that he felt, not right when he took this, and absolutely refuses it. I will send him home with Lasix 40 mg once daily, and encouraged complete compliance -Daily standing weights reviewed; he does have a scale at home and is capable of weighing himself every day and writing it down. His dry weight is estimate to be 167#, and he is very sensitive to anyminimal change. He typically comes in around 180#. He has flat out told me that he does not like the idea that he is that skinny, however I have voiced to him that if he does not take his diuretic and does gain weight it will be from water/ HF and not muscle. -Reviewed cardiac rehab with him, and he seems unsure about it at this time -Reviewed importance of cardiac diet, fluid restriction and sodium restriction -Reviewed that after optimization of his heart failure we should recheck an echo in about 3 months.If his LVEF remains low he would be a candidate for HRIS ANALYST-D - again after multiple hospitalizations and multiple discussions he does not seem to understand theseverity of his heart failure. Ongoing education provided -Dr. Lassiter he did want to get a new baseline NT PRO BNP, which came back at 13,174 CKD. -Creat 1.55, which is actually the best that we have seen this hospitalization. -Per nephrology notes baseline is noted to be between 1.5 and 1.7, but we have seen it well above 2 -Appreciate nephrology input Acute DVT. -Management per primary service -He is currently on the DVT-dosed Eliquis Nonsustained VT and an intermittent left bundle. -History of 15 beat run of VT early in admission. No sustained VT on telemetry today. -Note, he also has an intermittent left bundle branch block -Continues on carvedilol 25 mg twice daily; reviewed importance of compliance Noncompliance/medical literacy/social support. -Palliative care consulted for input on goals of care and CODE STATUS -Of note patient will be getting insurance as of 06/30/2024 and does have a close follow-up scheduled. He is advised to keep this appointment. I have also referred him to the numbers to call should he have any urgent needs in the meantime -Very high risk patient Disposition. -As above, he refuses transfer to HLU/HF-ICU at [facility] for more aggressive management -We have optimized him as much as we are capable of doing so, limited by patient refusal as well asCKD -He has a high risk diagnosis of severe heart failure, which is life-threatening. -He no longer wishes to stay in hospital -He has an appointment to establish with Dr. Zhang 07/01/2024 and is instructed to keep that appointment. Medications: apixaban, 10 mg, Oral, BID Followed by [START ON 06/24/2024] apixaban, 5 mg, Oral, BID carvedilol, 25 mg, Oral, BID WC cholecalciferol, 4,000 Units, Oral, Daily hydrALAZINE, 50 mg, Oral, TID influenza, 0.5 mL, IntraMUSCular, Prior to discharge isosorbide dinitrate, 30 mg, Oral, TID magnesium hydroxide, 30 mL, Oral, Nightly pantoprazole, 40 mg, Oral, BID AC sodium bicarbonate, 1,300 mg, Oral, BID torsemide, 10 mg, Oral, Daily Infusion Medications: Physical Examination: Vitals: 06/20/24 1935 06/20/24 2332 06/21/24 0344 06/21/24 0736 BP: 106/76 108/77 108/78 116/81 BP Location: Left arm Right arm Left arm Left arm Patient Position: Lying Lying Lying Lying Pulse: 53 56 52 101 Resp: 18 18 18 18 Temp: 36.5 C (97.7 F) 36.4 C (97.5 F) 36.4 C (97.6 F) 36.4 C (97.6 F) TempSrc: Temporal Temporal Temporal Temporal SpO2: 97% 96% 94% 97% Weight: 167 lb 11.2 oz (76.1 kg) Height: Intake/Output Summary (Last 24 hours) at 06/21/2024 0817 Last data filed at 06/20/2024 1750 Gross per 24 hour Intake 650 ml Output 350 ml Net 300 ml Patient Vitals for the past 168 hrs: Weight Weight Method 06/20/24 1935 167 lb 11.2 oz (76.1 kg) -- 06/20/24 0745 170 lb (77.1 kg) -- 06/19/24 0500 168 lb 6.4 oz (76.4 kg) Standing scale 06/18/24 0600 166 lb 12.8 oz (75.7 kg) -- 06/17/24 1414 167 lb 9.6 oz (76 kg) Standing scale 06/15/24 1119 173 lb (78.5 kg) -- 06/15/24 0608 173 lb 15.1 oz (78.9 kg) -- 06/14/24 1409 175 lb 3.2 oz (79.5 kg) Bed scale Physical Exam Constitutional: NAD Psychiatric: Alert. Medical insight poor Neck: No JVD Respiratory: Lungs are diminished Heart: Sinus tach ; Nl S1 and S2, no murmur, no rub, gallop Abdomen: NABS; soft, non-tender, non-distended Extremities: trace LE edema Skin: Warm to touch and well perfused; right radial cath site c/d/I, without hematoma; pulse 2+, cap refill < 3 seconds Laboratory Tests: TROPONIN I, CONVENTIONAL SENSITIVITY TROPONIN I Date Value Ref Range Status 05/28/2024 0.037 (H) <0.034 ng/mL Final 05/28/2024 0.051 (H) <0.034 ng/mL Final 04/28/2024 0.032 <0.034 ng/mL Final 04/28/2024 0.025 <0.034 ng/mL Final 04/28/2024 0.020 <0.034 ng/mL Final TROPONIN I, HIGH SENSITIVITY Troponin HS, Serial Baseline Date Value Ref Range Status 06/18/2024 44 (H) <=35 ng/L Final 06/13/2024 50 (H) <=35 ng/L Final Troponin HS, Serial Second Date Value Ref Range Status 06/13/2024 53 (H) <=35 ng/L Final Troponin HS Delta, Baseline to Second Date Value Ref Range Status 06/13/2024 3 <=2 ng/L Final Comment: This specimen was collected more than 20 minutes away from the 2 hour target. Use of this delta with the 2 hour troponin algorithm is not recommended, individualized clinical assessment is needed. A troponin delta greater than or equal to 15 ng/L is significant for acute cardiac injury. Values less than 15 but greater than 2 are an intermediate change requiring a 3rd serial troponin to be drawn. Values less than or equal to 2 indicate acute cardiac injury is not likely, see external algorithmsfor further clinical guidance. Troponin HS, Serial Third Date Value Ref Range Status 06/13/2024 49 (H) <=35 ng/L Final Troponin HS Delta, Second to Third Date Value Ref Range Status 06/13/2024 -4 <=2 ng/L Final Comment: This specimen was collected more than 20 minutes away from the 2 hour target. Use of this delta with the 2 hour troponin algorithm is not recommended, individualized clinical assessment is needed. A troponin delta greater than or equal to 15 ng/L is suggestive of acute cardiac injury. Values less than 15, see clinical guidance for ED and Inpatient algorithms. Recent Labs 06/18/24 1039 06/20/24 0942 NA 136 135* K 4.0 3.8 CL 102 104 CO2 25 22 BUN 30* 22* CREATININE 1.91* 1.55* Recent Labs 06/18/24 1039 06/20/24 0942 WBC 5.0 5.9 HGB 15.0 13.7 HCT 46.5 41.9 MCV 99.8* 99.1* PLT 220 202 Recent Labs 06/18/24 1039 06/20/24 0942 BNP 13,384* 13,174* No results for input(s): TRIG, HDL, LDLCALC, CHOL in the last 72 hours. No results found for: LDLCHOLESTER Lab Results Component Value Date TSH 1.52 06/15/2024 EF BP Date Value Ref Range Status 06/15/2024 20 (A) 55 - 100 % Final 06/13/24 TRANSTHORACIC ECHOCARDIOGRAM (TTE) COMPLETE (CONTRAST/BUBBLE/3D PRN) 06/15/2024 1:59 PM (Final) Interpretation Summary Left Ventricle: Left ventricle is dilated. Mildly increased wall thickness. Severely reduced left ventricular systolic function. EF by 2D Simpsons Biplane is 20%. Global longitudinal strain is reduced with a value of -5.0%. Severe global hypokinesis present. Right Ventricle: Right ventricle is dilated. Moderately reduced systolic function. Aortic Valve: Mild (1+) regurgitation. Mitral Valve: Moderate (2+) regurgitation with an eccentrically directed jet and and may underestimate severity. Tricuspid Valve: Moderately elevated RVSP. RVSP is 46 mmHg. Pericardium: Small (<1 cm) pericardial effusion present. Findings do not support cardiac tamponade. IVC/Hepatic Veins: IVC diameter is dilated and decreases less than 50% during inspiration; therefore the estimated right atrial pressure is elevated (~15 mmHg). Slow blood flow, echogenic. Signed by: Ofelia Villalobos on 06/15/2024 1:59 PM Other reports reviewed: Cardiac Tests: ECG: Tracing reviewed. Telemetry findings reviewed: sinus tach 100-112 EF BP Date Value Ref Range Status 06/15/2024 20 (A) 55 - 100 % Final THOMAS Peña CNP Date Of Service 06/21/2024 * Sergei Mcguire DO - 06/20/2024 12:44 PM EST Hospitalist Progress Note 06/20/2024 [id number]: Please page pr ([phone]) for patient care issues. [phone]: Please page [facility] Hospitalist for any issues. Subjective: Admit Date: 06/13/2024 PCP: No primary care provider on file. Room#: B2-243/B2-243 A Interval History: patient admitted for acute CHF exacerbation. No overnight issues. Denies chest pain, sob, abdominal pain, nausea, vomiting, diarrhea, constipation, fevers, or chills. Reports breathing easier, tolerating PO intake well. Reports ambulating ok without much CARRERA. Adult diet Regular; Low Fat/Low Chol/High Fiber/2 gm Na 24HR INTAKE/OUTPUT: Intake/Output Summary (Last 24 hours) at 06/20/2024 1244 Last data filed at 06/20/2024 0745 Gross per 24 hour Intake 240 ml Output -- Net 240 ml Past Medical History: Past Medical History: Diagnosis Date CHF (congestive heart failure) (HCC) CKD (chronic kidney disease) Hypercholesteremia Hypertension LABS: CBC: Recent Labs 06/18/24 1039 06/20/24 0942 WBC 5.0 5.9 RBC 4.66 4.23* HGB 15.0 13.7 HCT 46.5 41.9 MCV 99.8* 99.1* RDW 13.9 13.6 PLT 220 202 BMP: Recent Labs 06/18/24 1039 06/20/24 0942 NA 136 135* K 4.0 3.8 CL 102 104 CO2 25 22 BUN 30* 22* CREATININE 1.91* 1.55* GLUCOSE 173* 171* CALCIUM 7.9* 7.8* ANIONGAP 9 9 LIVER PROFILE: No results for input(s): AST, ALT, BILITOT, ALKPHOS, PROT in the last 72 hours. No lab exists for component: LABALBU PT/INR: No results for input(s): PROTIME, INR in the last 72 hours. CARDIAC ENZYMES: No results for input(s): TROPONINI in the last 72 hours. Procalcitonin: No results found for: PROCAL COVID-19 PCR: No results for input(s): COVID19 in the last 72 hours. Objective: Vitals: BP 101/73 (BP Location: Left arm, Patient Position: Lying) Pulse 64 Temp 36.4 C (97.6 F) (Temporal) Resp 20 Ht 6' 1 (1.854 m) Wt 170 lb (77.1 kg) SpO2 100% BMI 22.43 kg/m Pulse Ox: SpO2 Av.5 % Min: 94 % Max: 100 % Supplemental O2: General appearance: No apparent distress, appears stated age and cooperative with exam Respiratory: CTA BL Cardiovascular: Regular rate and rhythm with no murmur Abdomen: Soft, non-tender, non-distended Skin: Skin color, texture, turgor normal. No rashes or lesions. Distal pulses present, 1+ BL LE edema present. Neurologic: grossly non-focal. Medications: apixaban, 10 mg, Oral, BID Followed by [START ON 06/24/2024] apixaban, 5 mg, Oral, BID carvedilol, 25 mg, Oral, BID WC cholecalciferol, 4,000 Units, Oral, Daily hydrALAZINE, 50 mg, Oral, TID influenza, 0.5 mL, IntraMUSCular, Prior to discharge isosorbide dinitrate, 30 mg, Oral, TID magnesium hydroxide, 30 mL, Oral, Nightly pantoprazole, 40 mg, Oral, BID AC sodium bicarbonate, 1,300 mg, Oral, BID torsemide, 10 mg, Oral, Daily Assessment Acute HFrEF LVEF of 20% SCHUYLER on CKD stage 3 Non-ischemic cardiomyopathy Nephrology and cardiology on consult Worsening renal function in setting of IV diuresis Volume status improving Strict I/O's, daily weight Monitor on telemetry GDMT per cardiology. LHC and RHC on on 06/17/24. Lifevest per cardiology. Acute DVT of right popliteal, soleal and peroneal veins Acute DVT of right peroneal veins Eliquis 5mg po BID Hyperkalemia S/p kayexalate and IV lasix, resolved Upper abdominal pain CT Abdomen and pelvis negative Improved with PPI HTN HLD Home medications reviewed and resumed as indicated Medical Decision Making 06/15/24: patient with acute HFrEF exacerbation and worsening renal function, with IV diuresis, Cardiology and nephrology following. Improvement in volume status, however now with worse renal function. Hold off on further diuresis per nephrology recs. Repeat echo now with LVEF of 20%, cardiology following, plan for LHC and RHC tomorrow. CBC and BMP in the AM. Monitor on telemetry, Strict I/O's daily weights. 06/16/24: patient refused LHC and RHC today, claiming that he was fearful of the procedure and did not want procedure done in his groin. Discussed high recommendations to further evaluate cardiac function and that he is at elevated risk of further compromise of cardiac function, patient voiced understanding. Cr improved to 1.91 today. Nephrology following, respiratory status and volume status arestable. Continue to hold diuretics. CBC and CMP in the AM. 06/17/24: patient now agreeable to have LHC and RHC today. Cardiology following, no labs obtained this morning, unsure why. Further recs from cardiology following heart cath today. Nephrology following. Continue to hold diuresis for now. CBC and BMP in the AM. 06/18/24: patient again refused labs today, however now agreeable to have them drawn to assess for renal function. Holding diuresis again today per nephrology until labs can be reviewed. Still with significant CARRERA, lifevest per cardiology. Cardiology recommending possible transfer to [facility] to be monitored in heart failure ICU, however patient is refusing. Resumed on Eliquis following heart cath yesterday. LHC and RHC ruled out coronary disease, deemed non-ischemic cardiomyopathy. CBC and BMP in the AM. 06/19/24: he is consistently refusing daily lab draws to assess renal function. Discussed with bothnephrology and cardiology today. Patient behavior is concerning for poor follow up and poor adherence to medical therapy management. Palliative care on consult for goals of care. Had another lengthy discussion with patient regarding the severity of his current cardiac condition and status. He does not seem to have significant insight or lacks understanding regarding his elevated risk of sudden cardiac . He is at significant risk for readmission. Continue GDMT as tolerated. Again, encouraged patient to allow nursing to obtain blood for labs to be checked. CBC and BMP in the AM. 06/20/24: patient renal function improving. Cr of 1.55 today, defer diuresis to nephrology. He is nearly euvolemic on examination. Palliative care on consult. Patient will not have insurance until June 30. He will need close outpatient follow up with cardiology and nephrology and to get established with PCP. CBC and BMP in the AM. -am labs, replace lytes prn -increase activity -resume home medications as indicated -DVT prophylaxis: [] Lovenox [] Heparin [] SCDs [x] Encourage ambulation [x] Already on Anticoagulation Anticipated Discharge - Date - 06/21 vs 06/22 - Location - Home - Pending the following - stable cardiac and renal function, clearance by consultants. Toxic drug monitoring/narrow therapeutic index drug monitoring : # Drug name : # Route administered : # Method of monitoring : Extended Emergency Contact Information Primary Emergency Contact: Indira Medina Mobile Relation: Sister Secondary Emergency Contact: Kaitlin Hicks Mobile Relation: Significant Other Sergei Mcguire DO Division of Hospitalist Medicine Inpatient Medical Services/[facility] [place] PAGER: Epic chat * Angel Luis Lassiter MD - 06/20/2024 10:53 AM EST [facility] Cardiology Progress Note HPI / Interval History: Carlo Medina is a 44 y.o. year old male patient with a history of 5 admissions since 02/28/2024. Diagnosis heart failure with reduced ejection fraction, mitral regurgitation, and CKD. His care is complicated by medication noncompliance, lack of insurance, and poor follow-up. He has also declined several recommendations pertaining to testing. Has Fhx of father and brother with HF. This time, he was admitted 06/13/2024 for heart failure exacerbation with dyspnea, edema, and abdominal pain. His Cr went up with diuresis which had to be held. R+L heart cath no CAD, only mildly elevated filling pressures but poor CI ( only 1.6). Options limited to medical therapy for LV dysfunction so hydralazine was increased to 50 mg tid. Had a 15 beat run of ventricular tachycardia at 150 beats a minute. He was having intermittent episodes of left bundle branch block (not ventricular tachycardia) at about 110 beats a minute. The patient's heart rate is consistently between 90 and 110 bpm even on high-dose beta-blockade. 06/18 Dr. Morales discussed with him possible transfer to [facility] for more invasive monitoring for his heart failure, but as previously, he does not want to do this. Also talked about hisneed eventually for an ICD assessment, and he may consider this in the future but currently did notwant to go to [facility] for this evaluation either. Renal also thought euvolemic. 06/19. Pt denies cardiac symptoms at rest. On RA, able to get up and go to bathroom ok. But has nottried walking around yet. Why am SOB when I move I don't know if I can go back to work I want to get better quickly My veins are bad I don't think you need blood work every day. Reviewed in detail that there is no quick fix for his heart and that he has chronic heart issues punctuated with exacerbations which we can temporarily correct. He expresses, essentially, he wants to get better quickly and live the life he would normally like to. Asks more than once why he is SOB, explained weak heart to him multiple times, but not clear howmuch of this is getting thru. Does not want txf to [facility]. Reviewed that if he does not want aggressive mgt like we are offering, readjusting GOC (and probably code status) is appropriate. 06/20. Pt says overall he is a little better than when he came in. CXR is better, PRoBNP level is lower. Exam is benign. Vitals reviewed. Please note: INCORRECT HR IS GENERATED FROM AUTOMATED DEVICES. 54 BPM AND SIMILAR RATES ARE INACCURATE. HR IS CONSISTENTLY >80 BPM AND AVERAGES AROUND 100 BPM BY TELE REVIEW. D/w Nursing but they are unable to avoid or verify entry of incorrect values in the chart. of 5 recent admission since 02/28/2024.Assessment/Plan HF NYHA Class I [] II [] III [x] IV []Unable to assess [] N/A Acute on chronic HFrEF (20% 05/2024) due to non-ischemic CMP: Heart cath 06/17/2024 ruled out coronary disease, cardiomyopathy is not ischemic in origin Suspect possible origins include history of poorly controlled hypertension for years and/or genetic(father- sudden cardiac , brother - HF, alive). Renal fxn improving. Sxs stable. CXR looks better Diuretics: Demadex 10 mg every day; if ok with renal would favor increased dose to at least 20 mg (that was his prior DC dose 06/01) HF Beta jerome: coreg 25 bid LUCRECIA/ARB/ARNI: None 2nd CKD MRA: None 2nd CKD Vasodilator: Hydral 50 TID; Isordil 30 TID SGLT2i: None 2nd CKD Corlanor: Appropriate outpt candidate for this med Digoxin: None 2nd CKD Anticoagulation: OAC for DVT (mgt per primary) ICD/HRIS ANALYST: Candidate for HRIS ANALYST-D if LBBB became chronic but would need to agree to [facility] evaluation as outpt Last CPET: none Last RHC: C/w low outpt HF. Volume compensated. LVAD/OHT eligibility: No; noncompliant with recommendations Screening for MONTSE: unknown - Added BNP to labs today to get new baseline. - Maintain current weight ( near euvolemic by right heart cath) with PRN diuretic - Will DC HST. Unclear why was ordered second set. I don't see a role for this test in his care currently, he has already been shown to have no signif CAD. - If cost tolerable, would recommend outpt genetic testing for dilated VASCULAR SURGERY PHYSICIAN. - He is still dyspneic with light exertion but does not wish transfer to [facility] given his very borderline compensated heart failure currently. - Outpt f/u to the Advanced HF clinic - Encouraged pt to do daily wts at home - Palliative care consult pending for GOC and Code status. His choices are not c/w being full code as his likelihood of outcome with limited assessment (due to his desire to avoid higher degree of care) like we are doing is not good. -There has been discussion about a LifeVest; given his poor medical literacy it may be helpful and potentially harmful to use this device. CKD. Stable between 06/16 and 06/18. No labs 06/19. Improving Cr 06/20 (Cr 1.55). Allowed lab draw with US -One reason for his renal dysfunction is likely due to poor cardiac output -Continue demadex; await renal input, Previously on 20 mg demadex; now on 10mg, favor increase on discharge with close f/u -D/w pt outpt f/u will be needed. HTN. Stable. Target <130/80 mmHg; lower if able to tolerate to allow function of HF meds. - Continue antihypertensive Abdominal pain. Resolved per patient, was likely due to poor perfusion and congestion from heart failure -Management per primary service -Do not think this patient requires further workup for biliary disease at this point Acute DVT. -Cont Eliquis mgt per primary service Nonsustained VT/ Intermittent LBBB Hx 15 beat run of VT early in admission, none since. Intermittent left bundle branch block, not to be confused with ventricular arrhythmia -Continue high-dose carvedilol Noncompliance/ Medical literacy/ Social support At this point, despite his noncompliance with inpt recommendations we have more information than previously. But we are at the end of what we can do in this facility from a cardiac perspective. He could opt for Adv HF evaluation at [facility] which is preferred. He could be Dc'd to an appropriate locationfor his level of function, but unclear if he could rehab and become stronger given low cardiac outpt. Very high risk for readmission. 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 There may be an opportunity for improved LVEF and outcome with maximal treatment and if compliant even other advanced therapies. But he is unlikely to have a better prognosis if he is unable/unwilling to accept care at ahigher level. Disposition- Cardiology will continue to follow. CARRERA with minimal activity; He may do better in the heart failure ICU with close hemodynamic monitoring, however he does not want to go to [facility]. Will try to get him managed medically asabove. Social/ Psych/ Code. High risk patient with low outpt HF, low level of function, very high risk of readmission (not clear where he capable of going, ?SNF). His medical insight seems poor despite mult admissions and discussions. Does not seem to have family support for his lifethreatening diagnosis. -Palliative consult pending for GOC and Code status. Dispo. Once a discharge diuretic dose agreed on; consider discharge. Msg me and I will arrange for outpt f/u. Pt says his insurance will start Jun 30. He needs a PCP and does not have one. To the primary serve - please arrange outpt PCP f/u MDM. High risk dx of severe HF. Ongoing Sxs but cannot manage further here and pt not wishing eval elsewhere. Awaiting Palliative input. Medications: apixaban, 10 mg, Oral, BID Followed by [START ON 06/24/2024] apixaban, 5 mg, Oral, BID carvedilol, 25 mg, Oral, BID WC cholecalciferol, 4,000 Units, Oral, Daily hydrALAZINE, 50 mg, Oral, TID influenza, 0.5 mL, IntraMUSCular, Prior to discharge isosorbide dinitrate, 30 mg, Oral, TID magnesium hydroxide, 30 mL, Oral, Nightly pantoprazole, 40 mg, Oral, BID AC sodium bicarbonate, 1,300 mg, Oral, BID torsemide, 10 mg, Oral, Daily Physical Examination: Vitals: 06/19/24 1931 06/19/24 2313 06/20/24 0318 06/20/24 0745 BP: 105/72 102/71 112/83 101/71 BP Location: Left arm Right arm Left arm Left arm Patient Position: Lying Lying Lying Lying Pulse: 54 53 105 57 Resp: 18 18 16 Temp: 36.2 C (97.1 F) 36.2 C (97.1 F) 36.5 C (97.7 F) 36.3 C (97.4 F) TempSrc: Temporal Temporal Temporal Temporal SpO2: 94% 97% 100% 100% Weight: 170 lb (77.1 kg) Height: SEE NOTE ABOVE; INCORRECT HR No intake or output data in the 24 hours ending 06/20/24 1054 Patient Vitals for the past 168 hrs: Weight Weight Method 06/20/24 0745 170 lb (77.1 kg) -- 06/19/24 0500 168 lb 6.4 oz (76.4 kg) Standing scale 06/18/24 0600 166 lb 12.8 oz (75.7 kg) -- 06/17/24 1414 167 lb 9.6 oz (76 kg) Standing scale 06/15/24 1119 173 lb (78.5 kg) -- 06/15/24 0608 173 lb 15.1 oz (78.9 kg) -- 06/14/24 1409 175 lb 3.2 oz (79.5 kg) Bed scale 06/14/24 0340 180 lb 5.4 oz (81.8 kg) Bed scale 06/13/24 1717 180 lb 3.2 oz (81.7 kg) -- 06/13/24 1509 180 lb (81.6 kg) Stated Physical Exam Constitutional: NAD Psychiatric: Alert. Medical insight poor Neck: +mild JVD Respiratory: Lungs are CTA Heart: tachy ; Nl S1 and S2, no murmur, no rub, +gallop Abdomen: NABS; soft, non-tender, non-distended Extremities: 1+ bilateral LE edema Skin: Warm to touch and well perfused Laboratory Tests: TROPONIN I, CONVENTIONAL SENSITIVITY TROPONIN I Date Value Ref Range Status 05/28/2024 0.037 (H) <0.034 ng/mL Final 05/28/2024 0.051 (H) <0.034 ng/mL Final 04/28/2024 0.032 <0.034 ng/mL Final 04/28/2024 0.025 <0.034 ng/mL Final 04/28/2024 0.020 <0.034 ng/mL Final TROPONIN I, HIGH SENSITIVITY Troponin HS, Serial Baseline Date Value Ref Range Status 06/18/2024 44 (H) <=35 ng/L Final 06/13/2024 50 (H) <=35 ng/L Final Troponin HS, Serial Second Date Value Ref Range Status 06/13/2024 53 (H) <=35 ng/L Final Troponin HS Delta, Baseline to Second Date Value Ref Range Status 06/13/2024 3 <=2 ng/L Final Comment: This specimen was collected more than 20 minutes away from the 2 hour target. Use of this delta with the 2 hour troponin algorithm is not recommended, individualized clinical assessment is needed. A troponin delta greater than or equal to 15 ng/L is significant for acute cardiac injury. Values less than 15 but greater than 2 are an intermediate change requiring a 3rd serial troponin to be drawn. Values less than or equal to 2 indicate acute cardiac injury is not likely, see external algorithmsfor further clinical guidance. Troponin HS, Serial Third Date Value Ref Range Status 06/13/2024 49 (H) <=35 ng/L Final Troponin HS Delta, Second to Third Date Value Ref Range Status 06/13/2024 -4 <=2 ng/L Final Comment: This specimen was collected more than 20 minutes away from the 2 hour target. Use of this delta with the 2 hour troponin algorithm is not recommended, individualized clinical assessment is needed. A troponin delta greater than or equal to 15 ng/L is suggestive of acute cardiac injury. Values less than 15, see clinical guidance for ED and Inpatient algorithms. Recent Labs 06/18/24 1039 06/20/24 0942 NA 136 135* K 4.0 3.8 CL 102 104 CO2 25 22 BUN 30* 22* CREATININE 1.91* 1.55* Recent Labs 06/18/24 1039 06/20/24 0942 WBC 5.0 5.9 HGB 15.0 13.7 HCT 46.5 41.9 MCV 99.8* 99.1* PLT 220 202 Lab Results Component Value Date TSH 1.52 06/15/2024 EF BP Date Value Ref Range Status 06/15/2024 20 (A) 55 - 100 % Final TRANSTHORACIC ECHOCARDIOGRAM (TTE) COMPLETE (CONTRAST/BUBBLE/3D PRN) 06/15/2024 1:59 PM (Final) Interpretation Summary Left Ventricle: Left ventricle is dilated. Mildly increased wall thickness. Severely reduced left ventricular systolic function. EF by 2D Simpsons Biplane is 20%. Global longitudinal strain is reduced with a value of -5.0%. Severe global hypokinesis present. Right Ventricle: Right ventricle is dilated. Moderately reduced systolic function. Aortic Valve: Mild (1+) regurgitation. Mitral Valve: Moderate (2+) regurgitation with an eccentrically directed jet and and may underestimate severity. Tricuspid Valve: Moderately elevated RVSP. RVSP is 46 mmHg. Pericardium: Small (<1 cm) pericardial effusion present. Findings do not support cardiac tamponade. IVC/Hepatic Veins: IVC diameter is dilated and decreases less than 50% during inspiration; therefore the estimated right atrial pressure is elevated (~15 mmHg). Slow blood flow, echogenic. Signed by: Ofelia Villalobos on 06/15/2024 1:59 PM Other reports reviewed: Cath: 06/18/24 No significant epicardial coronary artery disease Milldy elevated right heart pressures: RA 7 mmHg, mean PA pressure 27 mmHg Elevated PCWP ~ 23mmHg, and LVEDP ~ 25 mmHg Decreased cardiac output/index. By Rodney, output: 3/0 L/min index 1.5: By thermodilution, output: 3.1 L/min index: SVR ~ 2200 Telemetry findings reviewed: sinus rhythm 50's 06/18one 15 beat VT at 150 b/min, intermittent rate related LBBB EF BP Date Value Ref Range Status 06/15/2024 20 (A) 55 - 100 % Final Angel Luis Lassiter MD Date Of Service 06/20/2024 * Maritza Linn, CURRICULUM DIRECTOR - WHITING MACHINE OPERATOR - 06/20/2024 10:13 AM EST [facility] Progress Note Subjective/ 44 y.o. year old male who we are seeing in consultation for SCHUYLER/CKD. NAEON Resting in bed No edema Went for LHC + RHC 06/17 Continues to refuse labs/rx often Appetite fair BP is stable No issues with UOP No other new issues at this time ROS done and negative unless mentioned as above No change in PFSH All data labs/interval notes and overnight issues are reviewed Objective/ Vitals: 06/19/24 1931 06/19/24 2313 06/20/24 0318 06/20/24 0745 BP: 105/72 102/71 112/83 101/71 BP Location: Left arm Right arm Left arm Left arm Patient Position: Lying Lying Lying Lying Pulse: 54 53 105 57 Resp: 18 18 18 16 Temp: 36.2 C (97.1 F) 36.2 C (97.1 F) 36.5 C (97.7 F) 36.3 C (97.4 F) TempSrc: Temporal Temporal Temporal Temporal SpO2: 94% 97% 100% 100% Weight: 77.1 kg (170 lb) Height: No intake or output data in the 24 hours ending 06/20/24 1013 apixaban, 10 mg, Oral, BID Followed by [START ON 06/24/2024] apixaban, 5 mg, Oral, BID carvedilol, 25 mg, Oral, BID WC cholecalciferol, 4,000 Units, Oral, Daily hydrALAZINE, 50 mg, Oral, TID influenza, 0.5 mL, IntraMUSCular, Prior to discharge isosorbide dinitrate, 30 mg, Oral, TID magnesium hydroxide, 30 mL, Oral, Nightly pantoprazole, 40 mg, Oral, BID AC sodium bicarbonate, 1,300 mg, Oral, BID torsemide, 10 mg, Oral, Daily PRN medications: acetaminophen OR acetaminophen, ondansetron ODT OR ondansetron, polyethylene glycol (PEG) 3350 Constitutional: Alert, awake Eyes: No icterus, no pallor HEENT: no pallor/cyanosis or icterus Cardiovascular: S1, S2 without m/r/g Respiratory: CTA B without w/r/r GI: +bs, soft, nt : agustin -ve Ext: no LE edema Neck: supple, no thyroid enlargement, no JVD elevation Skin: warm, moist, no rashes Data: Results from last 7 days Lab Units 06/20/24 0942 06/18/24 1039 06/16/24 0918 SODIUM mmol/L 135* 136 140 POTASSIUM mmol/L 3.8 4.0 3.9 CHLORIDE mmol/L 104 102 104 CO2 mmol/L 22 25 27 BUN mg/dL 22* 30* 31* CREATININE mg/dL 1.55* 1.91* 1.91* GLUCOSE mg/dL 171* 173* 107* CALCIUM mg/dL 7.8* 7.9* 8.3* Results from last 7 days Lab Units 06/20/24 0942 06/18/24 1039 06/16/24 0918 WBC AUTO 10*3/uL 5.9 5.0 5.5 HEMOGLOBIN g/dL 13.7 15.0 15.6 HEMATOCRIT % 41.9 46.5 47.5 PLATELETS 10*3/uL 202 220 195 Assessment/Plan SCHUYLER/ATN, possibly 2/2 volume depletion from over-diuresis vs CRS (N17.0) Acute on chronic HFrEF exacerbation (I50.23) Severe protein calorie malnutrition (E43) Noncompliance with medication (Z91.1) Abdominal pain CKD3b Acute BLE DVTs Plan: -Patient refused labs again this morning despite counseling -Now agreeable with US guidance, will arrange -Last labs were near bl~1.5-1.7, non-oliguric, BP stable -C/w holding diuresis, appears euvolemic on exam, await labs -Jorge Alberto score is 7 points, c/w a 14% chance of KELSIE and a 0.12% chance of needing TANK ERECTOR -Ok for prn diuresis for s/s of acute respiratory distress -Needs daily standing weights and strict I&Os -Avoid nephrotoxins and contrast dye -Dose all meds per current eGFR -Anticoagulation per primary team -Complex MDM -High risk of decompensation and readmission to the hospital is noncompliance with medications/labscontinue upon discharge -All other care per primary team -We will follow closely with you Thank you for the consult and the opportunity to participate in the care of this patient. Please donot hesitate to contact us with any questions or concerns. Maritza Linn APRN, WHITING MACHINE OPERATOR [facility], [facility] [phone] Cosigned by Saul Briones MD at 06/20/2024 3:09 PM EST Associated attestation - Saul Briones MD - 06/20/2024 3:09 PM EST Notes reviewed and plan discussed with the DOUGHNUT MACHINE OPERATOR HELPER. Agree with above note except Any variance is noted below. Saul Briones MD [facility] [phone] * Sergei Mcguire, DO - 06/19/2024 11:53 AM EST Hospitalist Progress Note 06/19/2024 [phone]: Please page me ([phone]) for patient care issues. [phone]: Please page [facility] night Hospitalist for any issues. Subjective: Admit Date: 06/13/2024 PCP: No primary care provider on file. Room#: B2-243/B2-243 A Interval History: patient admitted for acute CHF exacerbation. No overnight issues. Denies chest pain, sob, abdominal pain, nausea, vomiting, diarrhea, constipation, fevers, or chills. Reports breathing easier, tolerating PO intake well. He is consistently refusing labs. Adult diet Regular; Low Fat/Low Chol/High Fiber/2 gm Na 24HR INTAKE/OUTPUT: Intake/Output Summary (Last 24 hours) at 06/19/2024 1153 Last data filed at 06/19/2024 0900 Gross per 24 hour Intake 600 ml Output -- Net 600 ml Past Medical History: Past Medical History: Diagnosis Date CHF (congestive heart failure) (HCC) CKD (chronic kidney disease) Hypercholesteremia Hypertension LABS: CBC: Recent Labs 06/18/24 1039 WBC 5.0 RBC 4.66 HGB 15.0 HCT 46.5 MCV 99.8* RDW 13.9 PLT 220 BMP: Recent Labs 06/18/24 1039 NA 136 K 4.0 CL 102 CO2 25 BUN 30* CREATININE 1.91* GLUCOSE 173* CALCIUM 7.9* ANIONGAP 9 LIVER PROFILE: No results for input(s): AST, ALT, BILITOT, ALKPHOS, PROT in the last 72 hours. No lab exists for component: LABALBU PT/INR: No results for input(s): PROTIME, INR in the last 72 hours. CARDIAC ENZYMES: No results for input(s): TROPONINI in the last 72 hours. Procalcitonin: No results found for: PROCAL COVID-19 PCR: No results for input(s): COVID19 in the last 72 hours. Objective: Vitals: BP 96/69 (BP Location: Left arm, Patient Position: Lying) Pulse 117 Temp 36.2 C (97.1 F) (Temporal) Resp 16 Ht 6' 1 (1.854 m) Wt 168 lb 6.4 oz (76.4 kg) SpO2 99% BMI 22.22 kg/m Pulse Ox: SpO2 Av.3 % Min: 98 % Max: 100 % Supplemental O2: General appearance: No apparent distress, appears stated age and cooperative with exam Respiratory: Normal respiratory effort. CTA BL, no wheezing Cardiovascular: Regular rate and rhythm with no murmur Abdomen: Soft, non-tender, non-distended Skin: Skin color, texture, turgor normal. No rashes or lesions. Distal pulses present, 2+ BL LE edema present. Neurologic: grossly non-focal. Medications: apixaban, 10 mg, Oral, BID Followed by [START ON 06/24/2024] apixaban, 5 mg, Oral, BID carvedilol, 25 mg, Oral, BID WC cholecalciferol, 4,000 Units, Oral, Daily hydrALAZINE, 50 mg, Oral, TID influenza, 0.5 mL, IntraMUSCular, Prior to discharge isosorbide dinitrate, 30 mg, Oral, TID magnesium hydroxide, 30 mL, Oral, Nightly pantoprazole, 40 mg, Oral, BID AC sodium bicarbonate, 1,300 mg, Oral, BID torsemide, 10 mg, Oral, Daily Assessment Acute HFrEF LVEF of 20% SCHUYLER on CKD stage 3 Non-ischemic cardiomyopathy Nephrology and cardiology on consult Worsening renal function in setting of IV diuresis Volume status improving Strict I/O's, daily weight Monitor on telemetry GDMT per cardiology. LHC and RHC on on 06/17/24. Lifevest per cardiology. Acute DVT of right popliteal, soleal and peroneal veins Acute DVT of right peroneal veins Eliquis 5mg po BID Hyperkalemia S/p kayexalate and IV lasix, resolved Upper abdominal pain CT Abdomen and pelvis negative Improved with PPI HTN HLD Home medications reviewed and resumed as indicated Medical Decision Making 06/15/24: patient with acute HFrEF exacerbation and worsening renal function, with IV diuresis, Cardiology and nephrology following. Improvement in volume status, however now with worse renal function. Hold off on further diuresis per nephrology recs. Repeat echo now with LVEF of 20%, cardiology following, plan for LHC and RHC tomorrow. CBC and BMP in the AM. Monitor on telemetry, Strict I/O's daily weights. 06/16/24: patient refused LHC and RHC today, claiming that he was fearful of the procedure and did not want procedure done in his groin. Discussed high recommendations to further evaluate cardiac function and that he is at elevated risk of further compromise of cardiac function, patient voiced understanding. Cr improved to 1.91 today. Nephrology following, respiratory status and volume status arestable. Continue to hold diuretics. CBC and CMP in the AM. 06/17/24: patient now agreeable to have LHC and RHC today. Cardiology following, no labs obtained this morning, unsure why. Further recs from cardiology following heart cath today. Nephrology following. Continue to hold diuresis for now. CBC and BMP in the AM. 06/18/24: patient again refused labs today, however now agreeable to have them drawn to assess for renal function. Holding diuresis again today per nephrology until labs can be reviewed. Still with significant CARRERA, lifevest per cardiology. Cardiology recommending possible transfer to [facility] to be monitored in heart failure ICU, however patient is refusing. Resumed on Eliquis following heart cath yesterday. LHC and RHC ruled out coronary disease, deemed non-ischemic cardiomyopathy. CBC and BMP in the AM. 06/19/24: he is consistently refusing daily lab draws to assess renal function. Discussed with bothnephrology and cardiology today. Patient behavior is concerning for poor follow up and poor adherence to medical therapy management. Palliative care on consult for goals of care. Had another lengthy discussion with patient regarding the severity of his current cardiac condition and status. He does not seem to have significant insight or lacks understanding regarding his elevated risk of sudden cardiac . He is at significant risk for readmission. Continue GDMT as tolerated. Again, encouraged patient to allow nursing to obtain blood for labs to be checked. CBC and BMP in the AM. -am labs, replace lytes prn -increase activity -resume home medications as indicated -DVT prophylaxis: [] Lovenox [] Heparin [] SCDs [x] Encourage ambulation [x] Already on Anticoagulation Anticipated Discharge - Date - 06/21? - Location - Home - Pending the following - stable cardiac and renal function, clearance by consultants. Toxic drug monitoring/narrow therapeutic index drug monitoring : # Drug name : # Route administered : # Method of monitoring : Extended Emergency Contact Information Primary Emergency Contact: Indira Medina Mobile Relation: Sister Secondary Emergency Contact: Kaitlin Hicks Mobile Relation: Significant Other Sergei Mcguire DO [facility] PAGER: adicate timeads chat * Maritza Linn, CURRICULUM DIRECTOR - WHITING MACHINE OPERATOR - 06/19/2024 9:52 AM EST [facility] Progress Note Subjective/ 44 y.o. year old male who we are seeing in consultation for SCHUYLER/CKD. NAEON Resting in bed No edema Went for LHC + RHC 06/17 Continues to refuse labs/rx Appetite fair BP is stable No issues with UOP No other new issues at this time ROS done and negative unless mentioned as above No change in PFSH All data labs/interval notes and overnight issues are reviewed Objective/ Vitals: 06/19/24 0305 06/19/24 0500 06/19/24 0836 06/19/24 0900 BP: 130/83 104/73 BP Location: Left arm Patient Position: Lying Pulse: 54 58 Resp: 18 16 Temp: 36.2 C (97.1 F) (!) 35.9 C (96.7 F) TempSrc: Temporal Temporal SpO2: 98% 100% Weight: 76.4 kg (168 lb 6.4 oz) Height: Intake/Output Summary (Last 24 hours) at 06/19/2024 0952 Last data filed at 06/19/2024 0900 Gross per 24 hour Intake 600 ml Output -- Net 600 ml apixaban, 10 mg, Oral, BID Followed by [START ON 06/24/2024] apixaban, 5 mg, Oral, BID carvedilol, 25 mg, Oral, BID WC cholecalciferol, 4,000 Units, Oral, Daily hydrALAZINE, 50 mg, Oral, TID influenza, 0.5 mL, IntraMUSCular, Prior to discharge isosorbide dinitrate, 30 mg, Oral, TID magnesium hydroxide, 30 mL, Oral, Nightly pantoprazole, 40 mg, Oral, BID AC sodium bicarbonate, 1,300 mg, Oral, BID torsemide, 10 mg, Oral, Daily PRN medications: acetaminophen OR acetaminophen, ondansetron ODT OR ondansetron, polyethylene glycol (PEG) 3350 Constitutional: Alert, awake Eyes: No icterus, no pallor HEENT: no pallor/cyanosis or icterus Cardiovascular: S1, S2 without m/r/g Respiratory: CTA B without w/r/r GI: +bs, soft, nt : agustin -ve Ext: no LE edema Neck: supple, no thyroid enlargement, no JVD elevation Skin: warm, moist, no rashes Data: Results from last 7 days Lab Units 06/18/24 1039 06/16/24 0918 06/15/24 0414 SODIUM mmol/L 136 140 144 POTASSIUM mmol/L 4.0 3.9 4.1 CHLORIDE mmol/L 102 104 103 CO2 mmol/L 25 27 26 BUN mg/dL 30* 31* 37* CREATININE mg/dL 1.91* 1.91* 2.41* GLUCOSE mg/dL 173* 107* 103* CALCIUM mg/dL 7.9* 8.3* 8.9 Results from last 7 days Lab Units 06/18/24 1039 06/16/24 0918 06/13/24 1459 WBC AUTO 10*3/uL 5.0 5.5 8.7 HEMOGLOBIN g/dL 15.0 15.6 16.4 HEMATOCRIT % 46.5 47.5 52.1* PLATELETS 10*3/uL 220 195 217 Assessment/Plan SCHUYLER/ATN, possibly 2/2 volume depletion from over-diuresis vs CRS (N17.0) Acute on chronic HFrEF exacerbation (I50.23) Severe protein calorie malnutrition (E43) Noncompliance with medication (Z91.1) Abdominal pain CKD3b Acute BLE DVTs Plan: -Patient refused labs again this morning despite counseling -Last labs were near bl~1.5-1.7, non-oliguric, BP stable -C/w holding diuresis, appears euvolemic on exam, await labs -Jorge Alberto score is 7 points, c/w a 14% chance of KELSIE and a 0.12% chance of needing TANK ERECTOR -Ok for prn diuresis for s/s of acute respiratory distress -EF 20% per echo 06/15, noted IVC dilation, life vest to be arranged -Having ST elevations and v tach on heart monitor per RN, defer to cardiology -Needs daily standing weights and strict I&Os -Avoid nephrotoxins and contrast dye -Dose all meds per current eGFR -Anticoagulation per primary team -Complex MDM -High risk of decompensation and readmission to the hospital is noncompliance with medications/labscontinue upon discharge -All other care per primary team -We will follow closely with you Thank you for the consult and the opportunity to participate in the care of this patient. Please donot hesitate to contact us with any questions or concerns. Maritza Linn APRN, VIKKI [facility] [phone] Cosigned by Saul Briones MD at 06/19/2024 11:51 AM EST Associated attestation - Saul Briones MD - 06/19/2024 11:51 AM EST Notes reviewed and plan discussed with the wrestling coach. Agree with above note except Any variance is noted below. Saul Briones MD [facility] [phone] * Angel Luis Lassiter MD - 06/19/2024 6:52 AM EST [facility] [place] [facility] Cardiology Progress Note HPI / Interval History: Carlo Medina is a 44 y.o. year old male patient with a history of 5 admissions since 02/28/2024. Diagnosis heart failure with reduced ejection fraction, mitral regurgitation, and CKD. His care is complicated by medication noncompliance, lack of insurance, and poor follow-up. He has also declined several recommendations pertaining to testing. Has Fhx of father and brother with HF. This time, he was admitted 06/13/2024 for heart failure exacerbation with dyspnea, edema, and abdominal pain. His Cr went up with diuresis which had to be held. R+L heart cath no CAD, only mildly elevated filling pressures but poor CI ( only 1.6). Options limited to medical therapy for LV dysfunction so hydralazine was increased to 50 mg tid. Had a 15 beat run of ventricular tachycardia at 150 beats a minute. He was having intermittent episodes of left bundle branch block (not ventricular tachycardia) at about 110 beats a minute. The patient's heart rate is consistently between 90 and 110 bpm even on high-dose beta-blockade. 06/18 Dr. Morales discussed with him possible transfer to [facility] for more invasive monitoring for his heart failure, but as previously, he does not want to do this. Also talked about hisneed eventually for an ICD assessment, and he may consider this in the future but currently did notwant to go to [facility] for this evaluation either. Renal also thought euvolemic. 06/19. Pt denies cardiac symptoms at rest. On RA, able to get up and go to bathroom ok. But has nottried walking around yet. Why am SOB when I move I don't know if I can go back to work I want to get better quickly My veins are bad I don't think you need blood work every day. Reviewed in detail that there is no quick fix for his heart and that he has chronic heart issues punctuated with exacerbations which we can temporarily correct. He expresses, essentially, he wants to get better quickly and live the life he would normally like to. Asks more than once why he is SOB, explained weak heart to him multiple times, but not clear howmuch of this is getting thru. Does not want txf to [facility]. Reviewed that if he does not want aggressive mgt like we are offering, readjusting GOC (and probably code status) is appropriate. Vitals reviewed. Please note: INCORRECT HR IS GENERATED FROM AUTOMATED DEVICES. 54 BPM AND SIMILAR RATES ARE INACCURATE. HR IS CONSISTENTLY >80 BPM AND AVERAGES AROUND 100 BPM BY TELE REVIEW. D/w Nursing. of 5 recent admission since 02/28/2024.Assessment/Plan HF NYHA Class I [] II [] III [x] IV []Unable to assess [] N/A Acute on chronic HFrEF (20% 05/2024) due to non-ischemic CMP: Heart cath 06/17/2024 ruled out coronary disease, cardiomyopathy is not ischemic in origin Suspect possible origins include history of poorly controlled hypertension for years and/or genetic(father- sudden cardiac , brother - HF, alive) Diuretics: Demadex 10 mg QD HF Beta jerome: coreg 25 bid LUCRECIA/ARB/ARNI: None 2nd CKD MRA: None 2nd CKD Vasodilator: Hydral 50 TID; Isordil 30 TID SGLT2i: None 2nd CKD Corlanor: Appropriate outpt candidate for this med Digoxin: None 2nd CKD Anticoagulation: OAC for DVT (mgt per primary) ICD/HRIS ANALYST: Candidate for HRIS ANALYST-D if LBBB became chronic but would need to agree to [facility] evaluation as outpt Last CPET: none Last RHC: C/w low outpt HF. Volume compensated. LVAD/OHT eligibility: No; noncompliant with recommendations Screening for MONTSE: unknown -Ginger CXR for new baseline; Baseline ProBNP level 13K. - Maintain current weight ( near euvolemic by right heart cath) with PRN diuretic - Will DC HST. Unclear why was ordered second set. I don't see a role for this test in his care currently, he has already been shown to have no signif CAD. - Refused labs but would prefer to monitor BMP closely given right and left heart catheterization; he was given preprocedure hydration and used dye sparing method with minimal contrast given. - If cost tolerable, would recommend outpt genetic testing for dilated VASCULAR SURGERY PHYSICIAN. - Rec ambulate in the burgos, if he still dyspneic with minimal exertion will continue to offer transfer to [facility] given his very borderline compensated heart failure currently. - Palliative care consult GOC? Code? His choices are not c/w being full code as his likelihood of outcome with limited assessment (due to his desire to avoid higher degree of care) like we are doing is not good. CKD. Stable between 06/16 and 06/18. No labs 06/19 -Rec BMP; refused lab draw today -One reason for his renal dysfunction is likely due to poor cardiac output HTN. Stable. - Continue antihypertensive Abdominal pain. Resolved per patient, was likely due to poor perfusion and congestion from heart failure -Management per primary service -Do not think this patient requires further workup for biliary disease at this point Acute DVT. -Cont Eliquis mgt per primary service Nonsustained VT/ Intermittent LBBB Hx 15 beat run of VT, none since Intermittent left bundle branch block, not to be confused with ventricular arrhythmia -Continue high-dose carvedilol Noncompliance. At this point, despite his noncompliance with inpt recommendations we have more information than previously. But we are at the end of what we can do in this facility from a cardiac perspective. He could opt for Adv HF evaluation at [facility] which is preferred. He could be Dc'd to an appropriate locationfor his level of function, but unclear if he could rehab and become stronger given low cardiac outpt. Very high risk for readmission. Noncompliance likely due to multiple factors not all known at this time contribute to this risk and his poor prognosis [facility]. There may be an opportunity for improved LVEF and outcome with maximal treatment and if compliant even other advanced therapies. But heis unlikely to have a better prognosis if he is unable/unwilling to accept care at a higher level. Disposition- Cardiology will continue to follow. Unfortunately, the patient is having difficulty with minimal ambulation due to shortness of breath and I am concerned this is due to his marginally compensated heart failure. He may do better in the heart failure ICU with close hemodynamic monitoring, however he does not want to go to [facility]. Will try to get him managed medically as above. Social/ Psych/ Code. High risk patient with low outpt HF, low level of function, very high risk of readmission (not clear where he capable of going, ?SNF). His medical insight seems poor despite mult admissions and discussions. Does not seem to have family support for his lifethreatening diagnosis. -GOC? -Code status? -Palliative consult. MDM. High risk patient with severe HF. Need discussion of code status and GOC. Medications: apixaban, 10 mg, Oral, BID Followed by [START ON 06/24/2024] apixaban, 5 mg, Oral, BID carvedilol, 25 mg, Oral, BID WC cholecalciferol, 4,000 Units, Oral, Daily clopidogrel, 75 mg, Oral, Daily hydrALAZINE, 50 mg, Oral, TID influenza, 0.5 mL, IntraMUSCular, Prior to discharge isosorbide dinitrate, 30 mg, Oral, TID magnesium hydroxide, 30 mL, Oral, Nightly pantoprazole, 40 mg, Oral, BID AC sodium bicarbonate, 1,300 mg, Oral, BID torsemide, 10 mg, Oral, Daily Physical Examination: Vitals: 06/18/24 2334 06/19/24 0305 06/19/24 0500 06/19/24 0836 BP: 122/86 130/83 104/73 BP Location: Left arm Left arm Patient Position: Lying Lying Pulse: 99 54 58 Resp: 18 16 Temp: 37.5 C (99.5 F) 36.2 C (97.1 F) (!) 35.9 C (96.7 F) TempSrc: Temporal Temporal Temporal SpO2: 100% 98% 100% Weight: 168 lb 6.4 oz (76.4 kg) Height: SEE NOTE ABOVE; INCORRECT HR No intake or output data in the 24 hours ending 06/19/24 0652 Patient Vitals for the past 168 hrs: Weight Weight Method 06/19/24 0500 168 lb 6.4 oz (76.4 kg) Standing scale 06/18/24 0600 166 lb 12.8 oz (75.7 kg) -- 06/17/24 1414 167 lb 9.6 oz (76 kg) Standing scale 06/15/24 1119 173 lb (78.5 kg) -- 06/15/24 0608 173 lb 15.1 oz (78.9 kg) -- 06/14/24 1409 175 lb 3.2 oz (79.5 kg) Bed scale 06/14/24 0340 180 lb 5.4 oz (81.8 kg) Bed scale 06/13/24 1717 180 lb 3.2 oz (81.7 kg) -- 06/13/24 1509 180 lb (81.6 kg) Stated Physical Exam Constitutional: NAD Psychiatric: Alert. Medical insight poor Neck: +mild JVD Respiratory: Lungs are CTA Heart: tachy ; Nl S1 and S2, no murmur, no rub, +gallop Abdomen: NABS; soft, non-tender, non-distended Extremities: 1+ bilateral LE edema Skin: Warm to touch and well perfused Laboratory Tests: TROPONIN I, CONVENTIONAL SENSITIVITY TROPONIN I Date Value Ref Range Status 05/28/2024 0.037 (H) <0.034 ng/mL Final 05/28/2024 0.051 (H) <0.034 ng/mL Final 04/28/2024 0.032 <0.034 ng/mL Final 04/28/2024 0.025 <0.034 ng/mL Final 04/28/2024 0.020 <0.034 ng/mL Final TROPONIN I, HIGH SENSITIVITY Troponin HS, Serial Baseline Date Value Ref Range Status 06/18/2024 44 (H) <=35 ng/L Final 06/13/2024 50 (H) <=35 ng/L Final Troponin HS, Serial Second Date Value Ref Range Status 06/13/2024 53 (H) <=35 ng/L Final Troponin HS Delta, Baseline to Second Date Value Ref Range Status 06/13/2024 3 <=2 ng/L Final Comment: This specimen was collected more than 20 minutes away from the 2 hour target. Use of this delta with the 2 hour troponin algorithm is not recommended, individualized clinical assessment is needed. A troponin delta greater than or equal to 15 ng/L is significant for acute cardiac injury. Values less than 15 but greater than 2 are an intermediate change requiring a 3rd serial troponin to be drawn. Values less than or equal to 2 indicate acute cardiac injury is not likely, see external algorithmsfor further clinical guidance. Troponin HS, Serial Third Date Value Ref Range Status 06/13/2024 49 (H) <=35 ng/L Final Troponin HS Delta, Second to Third Date Value Ref Range Status 06/13/2024 -4 <=2 ng/L Final Comment: This specimen was collected more than 20 minutes away from the 2 hour target. Use of this delta with the 2 hour troponin algorithm is not recommended, individualized clinical assessment is needed. A troponin delta greater than or equal to 15 ng/L is suggestive of acute cardiac injury. Values less than 15, see clinical guidance for ED and Inpatient algorithms. Recent Labs 06/16/24 0918 06/18/24 1039 NA 140 136 K 3.9 4.0 CL 104 102 CO2 27 25 BUN 31* 30* CREATININE 1.91* 1.91* Recent Labs 06/16/24 0918 06/18/24 1039 WBC 5.5 5.0 HGB 15.6 15.0 HCT 47.5 46.5 MCV 99.2* 99.8* PLT 195 220 Lab Results Component Value Date TSH 1.52 06/15/2024 EF BP Date Value Ref Range Status 06/15/2024 20 (A) 55 - 100 % Final TRANSTHORACIC ECHOCARDIOGRAM (TTE) COMPLETE (CONTRAST/BUBBLE/3D PRN) 06/15/2024 1:59 PM (Final) Interpretation Summary Left Ventricle: Left ventricle is dilated. Mildly increased wall thickness. Severely reduced left ventricular systolic function. EF by 2D Simpsons Biplane is 20%. Global longitudinal strain is reduced with a value of -5.0%. Severe global hypokinesis present. Right Ventricle: Right ventricle is dilated. Moderately reduced systolic function. Aortic Valve: Mild (1+) regurgitation. Mitral Valve: Moderate (2+) regurgitation with an eccentrically directed jet and and may underestimate severity. Tricuspid Valve: Moderately elevated RVSP. RVSP is 46 mmHg. Pericardium: Small (<1 cm) pericardial effusion present. Findings do not support cardiac tamponade. IVC/Hepatic Veins: IVC diameter is dilated and decreases less than 50% during inspiration; therefore the estimated right atrial pressure is elevated (~15 mmHg). Slow blood flow, echogenic. Signed by: Ofelia Villalobos on 06/15/2024 1:59 PM Other reports reviewed: Cath: 06/18/24 No significant epicardial coronary artery disease Milldy elevated right heart pressures: RA 7 mmHg, mean PA pressure 27 mmHg Elevated PCWP ~ 23mmHg, and LVEDP ~ 25 mmHg Decreased cardiac output/index. By Rodney, output: 3/0 L/min index 1.5: By thermodilution, output: 3.1 L/min index: SVR ~ 2200 Telemetry findings reviewed: sinus rhythm 50's 06/18one 15 beat VT at 150 b/min, intermittent rate related LBBB EF BP Date Value Ref Range Status 06/15/2024 20 (A) 55 - 100 % Final Angel Luis Lassiter MD Date Of Service 06/19/2024 * Tahmina Berg RD - 06/18/2024 2:41 PM EST Nutrition Assessment Type and Reason for Visit: Reassess Nutrition Recommendations/Plan: Continue diet as ordered Adult diet Regular; Low Fat/Low Chol/High Fiber/2 gm Na Per mnt protocol will discontinue Ensure per pt request -declines all alternate supplements and snacks at this time Please encourage PO as jojo and continue to record meal intakes in RN Flowsheets RD to monitor wt, labs, PO intake -follow up weekly Malnutrition Assessment: Malnutrition Status: Severe malnutrition as previously assessed per RD Context: Chronic Illness Nutrition Assessment: per Nephrology diuresis on hold again today until labs reviewed -pt was previously declining labs. Cardiology recommending possible transfer to [facility] to be monitored in heart failure ICU, however patient is refusing. LHC and RHC ruled out coronary disease, deemed non-ischemic cardiomyopathy. Pt reports jojo meals and requests to have Ensure discontinued at this time. Estimated Daily Nutrient Needs: Energy Requirements Based On: Kcal/kg Weight Used for Energy Requirements: Admission Weight for Energy Calculation (kg): 80 kg Total Energy Requirements (kcals/day): 5711-1409 kcals (25-30 kcals/kg) Weight Used for Protein Requirements: Admission Weight in Kg Used for Protein Requirements: 80 kg Estimated Total Protein (g/day): 64-80g (0.8-1g/kg; monitor renal function) Estimated Daily Total Fluid (ml/day): per MD Nutrition Related Findings: +3 Evans LE edema. bm 06/18. bun 30/cr 1.91, GR 43.2, bgluc 173, 107. medications reviewed. wt hx noted prn diuresis per nephrology Wound Type: None 06/18/24 0600 -- 75.7 kg (166 lb 12.8 oz) 06/17/24 1414 Standing scale 76 kg (167 lb 9.6 oz) 06/15/24 1119 -- 78.5 kg (173 lb) 06/15/24 0608 -- 78.9 kg (173 lb 15.1 oz) 06/14/24 1409 Bed scale 79.5 kg (175 lb 3.2 oz) 06/14/24 03:40:31 Bed scale 81.8 kg (180 lb 5.4 oz) 06/13/24 17:17:27 -- 81.7 kg (180 lb 3.2 oz) 06/13/24 1509 Stated 81.6 kg (180 lb) Current Nutrition Therapies: Adult diet Regular; Low Fat/Low Chol/High Fiber/2 gm Na Current Oral Intake Average Meal Intake: 76-100% (last record 06/15) Average Supplements Intake: Refusing to take Anthropometric Measures: Height: 185.4 cm (6' 1) Current Body Weight: 75.3 kg (166 lb) Weight Source: Bed Scale Admission Body Weight: 81.6 kg (180 lb) Usual Body Weight: 93 kg (205 lb) (205#- 02/29/24, 186#-03/07/24, 191#-04/28/24) % Weight Change (Calculated): -14.5 [place] Body Weight (lbs) (Calculated): 184 lbs [place] Body Weight (Kg) (Calculated): 84 kg % [place] Body Weight (Calculated): 95.2 % BMI (kg/m2) (Calculated): 21.9 Weight Adjustment For: No Adjustment BMI Categories: Normal Weight (BMI 18.5-24.9) Nutrition Diagnosis: Severe malnutrition related to inadequate protein-energy intake, early satiety, altered taste perception as evidenced by poor intake prior to admission, weight loss greater than or equal to 10% in 6 months, localized or generalized fluid accumulation Altered nutrition-related lab values related to cardiac dysfunction as evidenced by lab values Nutrition Interventions: Nutrition Education/Counseling: Education completed Coordination of Nutrition Care: Continue to monitor while inpatient Plan of Care discussed with: Pt Goals: Previous Goal Met: Progressing toward Goal(s) Goals: PO intake 75% or greater, by next RD assessment Specify Other Goals: Labs and weights will trend towards baseline Nutrition Monitoring and Evaluation: Behavioral-Environmental Outcomes: None Identified Food/Nutrient Intake Outcomes: Food and Nutrient Intake, Supplement Intake Physical Signs/Symptoms Outcomes: Biochemical Data, Chewing or Swallowing, GI Status, Nausea or Vomiting, Fluid Status or Edema, Hemodynamic Status, Nutrition Focused Physical Findings, Skin, Weight Discharge Planning: Continue current diet Tahmina Berg RD Contact: *[phone] or via Secure Chat * Sergei Mcguire DO - 06/18/2024 11:10 AM EST Hospitalist Progress Note 06/18/2024 [phone]: Please page me ([phone]) for patient care issues. [phone]: Please page [facility] night Hospitalist for any issues. Subjective: Admit Date: 06/13/2024 PCP: No primary care provider on file. Room#: B2-243/B2-243 A Interval History: patient admitted for acute CHF exacerbation. No overnight issues. Denies chest pain, sob, abdominal pain, nausea, vomiting, diarrhea, constipation, fevers, or chills. Reports breathing easier, tolerating PO intake well. He is agreeable to have labs drawn later today. Adult diet Regular; Low Fat/Low Chol/High Fiber/2 gm Na 24HR INTAKE/OUTPUT: Intake/Output Summary (Last 24 hours) at 06/18/2024 1110 Last data filed at 06/18/2024 0602 Gross per 24 hour Intake 205 ml Output -- Net 205 ml Past Medical History: Past Medical History: Diagnosis Date CHF (congestive heart failure) (HCC) CKD (chronic kidney disease) Hypercholesteremia Hypertension LABS: CBC: Recent Labs 06/16/24 0918 06/18/24 1039 WBC 5.5 5.0 RBC 4.79 4.66 HGB 15.6 15.0 HCT 47.5 46.5 MCV 99.2* 99.8* RDW 13.6 13.9 PLT 195 220 BMP: Recent Labs 06/16/24 0918 NA 140 K 3.9 CL 104 CO2 27 BUN 31* CREATININE 1.91* GLUCOSE 107* CALCIUM 8.3* ANIONGAP 9 LIVER PROFILE: No results for input(s): AST, ALT, BILITOT, ALKPHOS, PROT in the last 72 hours. No lab exists for component: LABALBU PT/INR: No results for input(s): PROTIME, INR in the last 72 hours. CARDIAC ENZYMES: No results for input(s): TROPONINI in the last 72 hours. Procalcitonin: No results found for: PROCAL COVID-19 PCR: No results for input(s): COVID19 in the last 72 hours. Objective: Vitals: BP 104/74 (BP Location: Left arm, Patient Position: Lying) Pulse (!) 121 Temp (!) 35.6 C (96.1 F) (Temporal) Resp 16 Ht 6' 1 (1.854 m) Wt 166 lb 12.8 oz (75.7 kg) SpO2 100% BMI22.01 kg/m Pulse Ox: SpO2 Av.6 % Min: 95 % Max: 100 % Supplemental O2: General appearance: No apparent distress, appears stated age and cooperative with exam Respiratory: Normal respiratory effort. CTA BL, no wheezing Cardiovascular: Regular rate and rhythm with no murmur Abdomen: Soft, non-tender, non-distended Skin: Skin color, texture, turgor normal. No rashes or lesions. Distal pulses present, 2+ BL LE edema present. Neurologic: grossly non-focal. Medications: apixaban, 10 mg, Oral, BID Followed by [START ON 06/24/2024] apixaban, 5 mg, Oral, BID carvedilol, 25 mg, Oral, BID WC cholecalciferol, 4,000 Units, Oral, Daily clopidogrel, 75 mg, Oral, Daily hydrALAZINE, 50 mg, Oral, TID influenza, 0.5 mL, IntraMUSCular, Prior to discharge isosorbide dinitrate, 30 mg, Oral, TID magnesium hydroxide, 30 mL, Oral, Nightly pantoprazole, 40 mg, Oral, BID AC sodium bicarbonate, 1,300 mg, Oral, BID Assessment Acute HFrEF LVEF of 20% SCHUYLER on CKD stage 3 Non-ischemic cardiomyopathy Nephrology and cardiology on consult Worsening renal function in setting of IV diuresis Volume status improving Strict I/O's, daily weight Monitor on telemetry GDMT per cardiology. LHC and RHC on on 06/17/24. Lifevest per cardiology. Acute DVT of right popliteal, soleal and peroneal veins Acute DVT of right peroneal veins Eliquis 5mg po BID Hyperkalemia S/p kayexalate and IV lasix, resolved Upper abdominal pain CT Abdomen and pelvis negative Improved with PPI HTN HLD Home medications reviewed and resumed as indicated Medical Decision Making 06/15/24: patient with acute HFrEF exacerbation and worsening renal function, with IV diuresis, Cardiology and nephrology following. Improvement in volume status, however now with worse renal function. Hold off on further diuresis per nephrology recs. Repeat echo now with LVEF of 20%, cardiology following, plan for LHC and RHC tomorrow. CBC and BMP in the AM. Monitor on telemetry, Strict I/O's daily weights. 12/18/24: patient refused LHC and RHC today, claiming that he was fearful of the procedure and did not want procedure done in his groin. Discussed high recommendations to further evaluate cardiac function and that he is at elevated risk of further compromise of cardiac function, patient voiced understanding. Cr improved to 1.91 today. Nephrology following, respiratory status and volume status arestable. Continue to hold diuretics. CBC and CMP in the AM. 06/17/24: patient now agreeable to have LHC and RHC today. Cardiology following, no labs obtained this morning, unsure why. Further recs from cardiology following heart cath today. Nephrology following. Continue to hold diuresis for now. CBC and BMP in the AM. 06/18/24: patient again refused labs today, however now agreeable to have them drawn to assess for renal function. Holding diuresis again today per nephrology until labs can be reviewed. Still with significant CARRERA, lifevest per cardiology. Cardiology recommending possible transfer to [facility] to be monitored in heart failure ICU, however patient is refusing. Resumed on Eliquis following heart cath yesterday. LHC and RHC ruled out coronary disease, deemed non-ischemic cardiomyopathy. CBC and BMP in the AM. -am labs, replace lytes prn -increase activity -resume home medications as indicated -DVT prophylaxis: [] Lovenox [] Heparin [] SCDs [x] Encourage ambulation [x] Already on Anticoagulation Anticipated Discharge - Date - 06/19 vs 06/20 - Location - Home - Pending the following - stable cardiac and renal function, clearance by consultants. Toxic drug monitoring/narrow therapeutic index drug monitoring : # Drug name : # Route administered : # Method of monitoring : Extended Emergency Contact Information Primary Emergency Contact: Indira Medina Mobile Relation: Sister Secondary Emergency Contact: Kaitlin Hicks Mobile Relation: Significant Other Sergei Mcguire DO Division of Hospitalist Medicine Inpatient Medical Services/[facility] PAGER: adicate timeads chat * Maritza Linn APRN - WHITING MACHINE OPERATOR - 06/18/2024 10:46 AM EST [facility] Progress Note Subjective/ 44 y.o. year old male who we are seeing in consultation for SCHYULER/CKD. NAEON Resting in bed No edema Went for LHC + RHC 06/17 Initially refused labs again this morning, now collected and in process Appetite fair BP is stable No issues with UOP No other new issues at this time ROS done and negative unless mentioned as above No change in PFSH All data labs/interval notes and overnight issues are reviewed Objective/ Vitals: 06/18/24 0129 06/18/24 0326 06/18/24 0600 06/18/24 0752 BP: 108/77 104/74 BP Location: Left arm Patient Position: Lying Pulse: 102 100 (!) 121 Resp: 18 16 Temp: (!) 35.6 C (96.1 F) TempSrc: Temporal SpO2: 98% 100% Weight: 75.7 kg (166 lb 12.8 oz) Height: Intake/Output Summary (Last 24 hours) at 06/18/2024 1046 Last data filed at 06/18/2024 0602 Gross per 24 hour Intake 205 ml Output -- Net 205 ml apixaban, 10 mg, Oral, BID Followed by [START ON 06/24/2024] apixaban, 5 mg, Oral, BID carvedilol, 25 mg, Oral, BID WC cholecalciferol, 4,000 Units, Oral, Daily clopidogrel, 75 mg, Oral, Daily hydrALAZINE, 50 mg, Oral, TID influenza, 0.5 mL, IntraMUSCular, Prior to discharge isosorbide dinitrate, 30 mg, Oral, TID magnesium hydroxide, 30 mL, Oral, Nightly pantoprazole, 40 mg, Oral, BID AC sodium bicarbonate, 1,300 mg, Oral, BID PRN medications: acetaminophen OR acetaminophen, ondansetron ODT OR ondansetron, polyethylene glycol (PEG) 3350 Constitutional: Alert, awake Eyes: No icterus, no pallor HEENT: no pallor/cyanosis or icterus Cardiovascular: S1, S2 without m/r/g Respiratory: CTA B without w/r/r GI: +bs, soft, nt : agustin -ve Ext: no LE edema Neck: supple, no thyroid enlargement, no JVD elevation Skin: warm, moist, no rashes Data: Results from last 7 days Lab Units 06/16/24 0918 06/15/24 0414 06/14/24 0342 SODIUM mmol/L 140 144 144 POTASSIUM mmol/L 3.9 4.1 3.6 CHLORIDE mmol/L 104 103 118* CO2 mmol/L 27 26 15* BUN mg/dL 31* 37* 32* CREATININE mg/dL 1.91* 2.41* 1.74* GLUCOSE mg/dL 107* 103* 81 CALCIUM mg/dL 8.3* 8.9 7.2* Results from last 7 days Lab Units 06/18/24 1039 06/16/24 0918 06/13/24 1459 WBC AUTO 10*3/uL 5.0 5.5 8.7 HEMOGLOBIN g/dL 15.0 15.6 16.4 HEMATOCRIT % 46.5 47.5 52.1* PLATELETS 10*3/uL 220 195 217 Assessment/Plan SCHUYLER/ATN, possibly 2/2 volume depletion from over-diuresis vs CRS (N17.0) Acute on chronic HFrEF exacerbation (I50.23) Severe protein calorie malnutrition (E43) Noncompliance with medication (Z91.1) Abdominal pain CKD3b Acute BLE DVTs Plan: -Patient refused labs again this morning, now agreeable and TANK ERECTOR RN at bedside for US collection -Last labs were near bl~1.5-1.7, non-oliguric, BP stable -C/w holding diuresis through today until labs can be interpreted -Jorge Alberto score is 7 points, c/w a 14% chance of KELSIE and a 0.12% chance of needing TANK ERECTOR -Again, counseled on importance of allowing labs to be drawn -Ok for prn diuresis for s/s of acute respiratory distress -EF 20% per echo 06/15, noted IVC dilation, life vest to be arranged -Having ST elevations on heart monitor per RN, defer to cardiology -Needs daily standing weights and strict I&Os -Avoid nephrotoxins and contrast dye -Dose all meds per current eGFR -Anticoagulation per primary team -Complex MDM -High risk of decompensation and readmission to the hospital is noncompliance with medications/labscontinue upon discharge -All other care per primary team -We will follow closely with you Thank you for the consult and the opportunity to participate in the care of this patient. Please donot hesitate to contact us with any questions or concerns. Maritza Linn APRN, WHITING MACHINE OPERATOR [facility], [facility] [phone] Cosigned by Anand Mccullough MD at 06/18/2024 4:06 PM EST Associated attestation - Anand Mccullough MD - 06/18/2024 4:06 PM EST SCHUYLER/ATN, possibly 2/2 volume depletion from over-diuresis vs CRS (N17.0) Acute on chronic HFrEF exacerbation (I50.23) Met acidosis 87.21 Z91.1 Still euvolemic. Cr stable. Add Torsemide 10mg qday. * Angel Luis Morales MD - 06/18/2024 10:46 AM EST [facility] [place] [facility] Cardiology /Electrophysiology Progress Note HPI / Interval History: Carlo Medina is a 44 y.o. year old male patient with a history of 5 admissions since 02/28/2024. He was a new diagnosis heart failure with reduced ejection fraction, mitral regurgitation, and CKD. His care is complicated by medication noncompliance, lack of insurance, and poor follow-up. He has also declined several recommendations pertaining to testing. This time, he was admitted 06/13/2024 forheart failure exacerbation with dyspnea, edema, and abdominal pain. His Cr went up with diuresis which had to be held. Yesterday, he had a R+L heart cath ( I reviewed)> no CAD, only mildly elevated filling pressures but poor CI ( only 1.6). Options limited to medical therapy for LV dysfunction so hydralazine was increased to 50 mg tid. Yesterday afternoon, he had a 15 beat run of ventricular tachycardia at 150 beats a minute. Overnight, he was having intermittent episodes of left bundle branch block (not ventricular tachycardia) at about 110 beats a minute. The patient's heart rate is consistently between 90 and 110 bpm even on high-dose beta-blockade. This morning, he ate all of his breakfast and tolerated it well, however he said he got short of breath brushing his teeth, and I saw him walk about 20 feet in the hallway and he was short of breath. I did discuss with him possible transfer to [facility] for more invasive monitoring for his heart failure, but as previously, he does not want to do this. We also talked about his need eventually for an ICD assessment, and he may consider this in the future but currently does not want to go to [facility] for this evaluation either. of 5 recent admission since 02/28/2024.Assessment/Plan HF NYHA Class I [] II [] III [x] IV []Unable to assess [] N/A Acute on chronic HFrEF (20% 05/2024) due to non-ischemic CMP: -Heart cath 06/17/2024 ruled out coronary disease, cardiomyopathy is not ischemic in origin -Suspect possible origins include history of poorly controlled hypertension for years and/or genetic (father- sudden cardiac , brother - HF, alive) -Continue hydralazine 50 mg tid, isosorbide 30 mg tid - continue coreg 25 mg bid - no LUCRECIA/ARB/ARNI due to bad renal function -No SGLT2 inhibitor currently due to his renal function - no loop diuretic now due to worsening Cr when this was given on admission - Consider Corlanor given sinus tachy despite high dose beta jerome - maintain current weight ( near euvolemic by right heart cath) with PRN diuretic -Monitor BMP closely given right and left heart catheterization; he was given preprocedure hydration and used dye sparing method with minimal contrast given -Will ambulate in the burgos to see how he feels, but if he still dyspneic with minimal exertion willneed to rediscuss transfer to [facility] given his very borderline compensated heart failure currently. CKD. -Follow BMP (patient refused blood work this morning) -While Entresto or losartan would be great benefit to him, his kidneys will not currently tolerate -Suspect his renal dysfunction is due to poor cardiac output Abdominal pain. -Resolved per patient, was likely due to poor perfusion and congestion from heart failure -Management per primary service -Do not think this patient requires further workup for biliary disease at this point Acute DVT. -He is back on Eliquis after his heart cath yesterday -Monitor for resolution of leg edema 5. Nonsustained VT. -15 beat run of VT yesterday , none since -Has intermittent left bundle branch block, not to be confused with ventricular arrhythmia -Continue high-dose carvedilol 6. Disposition- Cardiology will continue to follow. Unfortunately, the patient is having difficulty with minimal ambulation due to shortness of breath and I am concerned this is due to his marginally compensated heart failure. He may do better in the heart failure ICU with close hemodynamic monitoring, however he does not want to go to [facility]. Will try to get him managed medically as above.. Medications: apixaban, 10 mg, Oral, BID Followed by [START ON 06/24/2024] apixaban, 5 mg, Oral, BID carvedilol, 25 mg, Oral, BID WC cholecalciferol, 4,000 Units, Oral, Daily clopidogrel, 75 mg, Oral, Daily hydrALAZINE, 50 mg, Oral, TID influenza, 0.5 mL, IntraMUSCular, Prior to discharge isosorbide dinitrate, 30 mg, Oral, TID magnesium hydroxide, 30 mL, Oral, Nightly pantoprazole, 40 mg, Oral, BID AC sodium bicarbonate, 1,300 mg, Oral, BID Physical Examination: Vitals: 06/18/24 0129 06/18/24 0326 06/18/24 0600 06/18/24 0752 BP: 108/77 104/74 BP Location: Left arm Patient Position: Lying Pulse: 102 100 (!) 121 Resp: 18 16 Temp: (!) 35.6 C (96.1 F) TempSrc: Temporal SpO2: 98% 100% Weight: 166 lb 12.8 oz (75.7 kg) Height: Intake/Output Summary (Last 24 hours) at 06/18/2024 1046 Last data filed at 06/18/2024 0602 Gross per 24 hour Intake 205 ml Output -- Net 205 ml Patient Vitals for the past 168 hrs: Weight Weight Method 06/18/24 0600 166 lb 12.8 oz (75.7 kg) -- 06/17/24 1414 167 lb 9.6 oz (76 kg) Standing scale 06/15/24 1119 173 lb (78.5 kg) -- 06/15/24 0608 173 lb 15.1 oz (78.9 kg) -- 06/14/24 1409 175 lb 3.2 oz (79.5 kg) Bed scale 06/14/24 0340 180 lb 5.4 oz (81.8 kg) Bed scale 06/13/24 1717 180 lb 3.2 oz (81.7 kg) -- 06/13/24 1509 180 lb (81.6 kg) Stated Physical Exam Constitutional: NAD Psychiatric: Alert. Medical insight poor Neck: +mild JVD Respiratory: Lungs are CTA Heart: tachy ; Nl S1 and S2, no murmur, no rub, +gallop Abdomen: NABS; soft, non-tender, non-distended Extremities: 1+ bilateral LE edema Skin: Warm to touch and well perfused; right radial cath site c/d/I, without hematoma; pulse 2+, cap refill brisk Laboratory Tests: TROPONIN I, CONVENTIONAL SENSITIVITY TROPONIN I Date Value Ref Range Status 05/28/2024 0.037 (H) <0.034 ng/mL Final 05/28/2024 0.051 (H) <0.034 ng/mL Final 04/28/2024 0.032 <0.034 ng/mL Final 04/28/2024 0.025 <0.034 ng/mL Final 04/28/2024 0.020 <0.034 ng/mL Final TROPONIN I, HIGH SENSITIVITY Troponin HS, Serial Baseline Date Value Ref Range Status 06/13/2024 50 (H) <=35 ng/L Final Troponin HS, Serial Second Date Value Ref Range Status 06/13/2024 53 (H) <=35 ng/L Final Troponin HS Delta, Baseline to Second Date Value Ref Range Status 06/13/2024 3 <=2 ng/L Final Comment: This specimen was collected more than 20 minutes away from the 2 hour target. Use of this delta with the 2 hour troponin algorithm is not recommended, individualized clinical assessment is needed. A troponin delta greater than or equal to 15 ng/L is significant for acute cardiac injury. Values less than 15 but greater than 2 are an intermediate change requiring a 3rd serial troponin to be drawn. Values less than or equal to 2 indicate acute cardiac injury is not likely, see external algorithmsfor further clinical guidance. Troponin HS, Serial Third Date Value Ref Range Status 06/13/2024 49 (H) <=35 ng/L Final Troponin HS Delta, Second to Third Date Value Ref Range Status 06/13/2024 -4 <=2 ng/L Final Comment: This specimen was collected more than 20 minutes away from the 2 hour target. Use of this delta with the 2 hour troponin algorithm is not recommended, individualized clinical assessment is needed. A troponin delta greater than or equal to 15 ng/L is suggestive of acute cardiac injury. Values less than 15, see clinical guidance for ED and Inpatient algorithms. Recent Labs 06/16/24 0918 NA 140 K 3.9 CL 104 CO2 27 BUN 31* CREATININE 1.91* Recent Labs 06/16/24 0918 06/18/24 1039 WBC 5.5 5.0 HGB 15.6 15.0 HCT 47.5 46.5 MCV 99.2* 99.8* PLT 195 220 Lab Results Component Value Date TSH 1.52 06/15/2024 EF BP Date Value Ref Range Status 06/15/2024 20 (A) 55 - 100 % Final TRANSTHORACIC ECHOCARDIOGRAM (TTE) COMPLETE (CONTRAST/BUBBLE/3D PRN) 06/15/2024 1:59 PM (Final) Interpretation Summary Left Ventricle: Left ventricle is dilated. Mildly increased wall thickness. Severely reduced left ventricular systolic function. EF by 2D Simpsons Biplane is 20%. Global longitudinal strain is reduced with a value of -5.0%. Severe global hypokinesis present. Right Ventricle: Right ventricle is dilated. Moderately reduced systolic function. Aortic Valve: Mild (1+) regurgitation. Mitral Valve: Moderate (2+) regurgitation with an eccentrically directed jet and and may underestimate severity. Tricuspid Valve: Moderately elevated RVSP. RVSP is 46 mmHg. Pericardium: Small (<1 cm) pericardial effusion present. Findings do not support cardiac tamponade. IVC/Hepatic Veins: IVC diameter is dilated and decreases less than 50% during inspiration; therefore the estimated right atrial pressure is elevated (~15 mmHg). Slow blood flow, echogenic. Signed by: Ofelia Villalobos on 06/15/2024 1:59 PM Other reports reviewed: Cath: 06/18/24 No significant epicardial coronary artery disease Milldy elevated right heart pressures: RA 7 mmHg, mean PA pressure 27 mmHg Elevated PCWP ~ 23mmHg, and LVEDP ~ 25 mmHg Decreased cardiac output/index. By Rodney, output: 3/0 L/min index 1.5: By thermodilution, output: 3.1 L/min index: SVR ~ 2200 Telemetry findings reviewed: sinus tach ~ 100, one 15 beat VT at 150 b/min, intermittent rate related LBBB EF BP Date Value Ref Range Status 06/15/2024 20 (A) 55 - 100 % Final Angel Luis Morales MD Date Of Service 06/18/2024 * Maritza VarelaBill Andujaryasmany, CURRICULUM DIRECTOR - WHITING MACHINE OPERATOR - 06/17/2024 1:34 PM EST [facility] Progress Note Subjective/ 44 y.o. year old male who we are seeing in consultation for SCHUYLER/CKD. NAEON Feels ok Resting in bed No edema Went for LHC + RHC today 06/17 Appetite fair BP is stable No issues with UOP No other new issues at this time ROS done and negative unless mentioned as above No change in PFSH All data labs/interval notes and overnight issues are reviewed Objective/ Vitals: 06/17/24 1115 06/17/24 1123 06/17/24 1204 06/17/24 1233 BP: (!) 115/95 110/86 114/82 120/90 BP Location: Left arm Left arm Left arm Left arm Patient Position: Lying Lying Lying Lying Pulse: 107 104 56 56 Resp: 26 16 16 19 Temp: (!) 35.8 C (96.5 F) TempSrc: Temporal SpO2: 98% Weight: Height: Intake/Output Summary (Last 24 hours) at 06/17/2024 1334 Last data filed at 06/17/2024 1039 Gross per 24 hour Intake -- Output 5 ml Net -5 ml carvedilol, 25 mg, Oral, BID WC cholecalciferol, 4,000 Units, Oral, Daily clopidogrel, 75 mg, Oral, Daily hydrALAZINE, 50 mg, Oral, TID influenza, 0.5 mL, IntraMUSCular, Prior to discharge isosorbide dinitrate, 30 mg, Oral, TID magnesium hydroxide, 30 mL, Oral, Nightly pantoprazole, 40 mg, Oral, BID AC sodium bicarbonate, 1,300 mg, Oral, BID PRN medications: acetaminophen OR acetaminophen, ondansetron ODT OR ondansetron, polyethylene glycol (PEG) 3350 Constitutional: Alert, awake Eyes: No icterus, no pallor HEENT: no pallor/cyanosis or icterus Cardiovascular: S1, S2 without m/r/g Respiratory: CTA B without w/r/r GI: +bs, soft, nt : agustin -ve Ext: no LE edema Neck: supple, no thyroid enlargement, no JVD elevation Skin: warm, moist, no rashes Data: Results from last 7 days Lab Units 06/16/24 0918 06/15/24 0414 06/14/24 0342 SODIUM mmol/L 140 144 144 POTASSIUM mmol/L 3.9 4.1 3.6 CHLORIDE mmol/L 104 103 118* CO2 mmol/L 27 26 15* BUN mg/dL 31* 37* 32* CREATININE mg/dL 1.91* 2.41* 1.74* GLUCOSE mg/dL 107* 103* 81 CALCIUM mg/dL 8.3* 8.9 7.2* Results from last 7 days Lab Units 06/16/24 0918 06/13/24 1459 WBC AUTO 10*3/uL 5.5 8.7 HEMOGLOBIN g/dL 15.6 16.4 HEMATOCRIT % 47.5 52.1* PLATELETS 10*3/uL 195 217 Assessment/Plan SCHUYLER/ATN, possibly 2/2 volume depletion from over-diuresis vs CRS (N17.0) Acute on chronic HFrEF exacerbation (I50.23) Severe protein calorie malnutrition (E43) Noncompliance with medication (Z91.1) Abdominal pain CKD3b Acute BLE DVTs Plan: -Patient refused labs this morning 06/17 -Last labs were near bl~1.5-1.7, non-oliguric, BP stable -Hold diuresis through today as appears euvolemic on exam -Jorge Alberto score is 7 points, c/w a 14% chance of KELSIE and a 0.12% chance of needing TANK ERECTOR -Agree with post-procedure IVF as ordered per cardiology, d/w Gaby JAMES cards -Ok to resume po diuresis tomorrow 06/18 -D/w him the importance of allowing labs to be drawn in the morning -Ok for prn diuresis for s/s of acute respiratory distress -EF 20% per echo 06/15, noted IVC dilation -Needs daily standing weights and strict I&Os -Avoid nephrotoxins and contrast dye -Dose all meds per current eGFR -Anticoagulation per primary team -Complex MDM -All other care per primary team -We will follow closely with you Thank you for the consult and the opportunity to participate in the care of this patient. Please donot hesitate to contact us with any questions or concerns. Maritza Linn APRN, VIKKI [facility], [facility] [phone] Cosigned by Anand Mccullough MD at 06/17/2024 10:16 PM EST Associated attestation - Anand Mccullough MD - 06/17/2024 10:16 PM EST Seen and examined. Agree with above A and P. Variances as below. SCHUYLER/ATN, possibly 2/2 volume depletion from over-diuresis vs CRS (N17.0) Acute on chronic HFrEF exacerbation (I50.23) Met acidosis 87.21 Z91.1 Still euvolemic. No need for diuresis today. LHC/RHC today. IVF today to prevent KELSIE from IV contrast exposure. Likely will resume diuresis tomorrow depending on volume status. * Gaby Marcano APRN - VIKKI - 06/17/2024 1:22 PM EST [facility] [place] Cardiology /Electrophysiology Progress Note HPI / Interval History: Carlo Medina is a 44 y.o. year old male patient with a history of 5 admissions since 02/28/2024. He was a new diagnosis heart failure with reduced ejection fraction, mitral regurgitation, and CKD. His care is complicated by medication noncompliance, lack of insurance, and poor follow-up. He has also declined several recommendations pertaining to testing. Most recently admitted 06/13/2024 for heart failure exacerbation with dyspnea, edema, and abdominalpain. Diuresis has been complicated by CKD with a creatinine trend of at least 1.5 or greater since January 2024. Ultimately this hospitalization echo revealed worsening EF, and we revisited the idea of right and left heart catheterization. He was scheduled for that on 06/16/2024, however refused. I went to go see him and he is agreeable to procedure. Left heart cath revealed no significant coronary disease, however right heart catheterization showed mildly elevated right heart pressures with a wedge of 23 mmHg, LVEDP of 25 mmHg, cardiac index of only 1.5. SVR approximately 2200. [facility]. because of this we are instead optimizing his oral GDMT to improve afterload reduction. I reviewed the above results with Dr. Morales, and at this time he thinks patient is euvolemic. We will obtain a standing weight dry weight since he is so fluid sensitive. Will increase his hydralazine to 37.5 mL 3 times daily to 50 mg 3 times daily for afterload reduction. For home-going we will also look at adjustment of his diuretic. I did receive a page this afternoon that patient had a 15 beat run of VT on the monitor. He is a little unclear if he had symptoms or not. Currently he has his brother Dwight at bedside visiting who appears very engaged in his care. We reviewed the right heart cath, left heart cath, and recent echo trend at length. We reviewed goals of care including optimization of his GDMT, the purpose of all of it, short-term goals, monitoring parameters at home, the need for compliance with medications and office follow-up, as well as long-term goals. My impression during this visit with his brother present was that he was very engaged in his care and willing to listen and ask questions, which is very needed in his care. Near the end of our conversation patient tells me that his dad suddenly of heart failure and that one of his brothers also has heart failure and is not doing well right now. We did review the nuances of his cath, and that the etiology of his heart failure is not from coronary disease. However this does not omit the fact that he has severe heart failure and is a high riskpatient. of 5 recent admission since 02/28/2024.Assessment/Plan HF NYHA Class [] I [] II [] III [] IV []Unable to assess [] N/A Acute on chronic HFrEF (20% 05/2024) with severe global hypokinesis, 2+ MR, and IVC dilation with RA pressure 15 mmHg and slow echogenic blood flow. -Heart cath 06/17/2024 ruled out coronary disease, cardiomyopathy is not ischemic in origin -Suspect possible origins include history of poorly controlled hypertension for years and/or genetic (father- sudden cardiac , brother - HF, alive) -Often the biggest indication that we use LifeVest therapy for is in the case of ischemic cardiomyopathy. Although he does not have ischemic cardiomyopathy he does have severe heart failure and has been having runs of nonsustained VT per telemetry. I will review with Dr. Morales whether or not he thinks this is indicated. -Standing weight obtained today 167#, which we feel to be his dry weight. After talking with patient he feels like he still has a little bit of swelling in his legs, which is new this hospitalizationfor him. We will reassess in the morning, and in the meantime I have encouraged him to utilize ankle pumps and elevation. He denies any shortness of breath at this time. -For optimization of GDMT will increase hydralazine from 37.5 mg 3 times daily to 50 mg 3 times daily for better afterload reduction -Continue carvedilol 25 mg twice daily -Continue Isordil 30 mg 3 times daily -No diuretics today, but for home going we will look at Bumex 1 mg daily rather than Lasix 40 mg daily which he is on prior to admission -Monitor BMP closely given right and left heart catheterization; he was given preprocedure hydration and used dye sparing method with minimal contrast given -With close follow-up and optimization of GDMT will need to recheck echo in about 3 months; If LVEFremains low at that time patient will be recommended for ICD /defibrillator placement CKD. -Follow BMP closely as above -While Entresto or losartan would be great benefit to him his kidneys will not currently tolerate so we are using other GDMT Abdominal pain. -Resolved per patient -Management per primary service Acute DVT. -Per primary service he was on Eliquis, although this was held in anticipation for heart catheterization; recommend restarting as soon as possible 5. Nonsustained VT. -15 beat run this afternoon, which she may or may not have felt -Of note he refused his carvedilol this morning because he was not going to be eating and I will have his nurse give his carvedilol to him now; I reviewed the importance of this medication with the patient Disposition- Cardiology will continue to follow. Hopeful discharge in the next day or 2. Medications: carvedilol, 25 mg, Oral, BID WC cholecalciferol, 4,000 Units, Oral, Daily clopidogrel, 75 mg, Oral, Daily hydrALAZINE, 50 mg, Oral, TID influenza, 0.5 mL, IntraMUSCular, Prior to discharge isosorbide dinitrate, 30 mg, Oral, TID magnesium hydroxide, 30 mL, Oral, Nightly pantoprazole, 40 mg, Oral, BID AC sodium bicarbonate, 1,300 mg, Oral, BID Infusion Medications: Physical Examination: Vitals: 06/17/24 1115 06/17/24 1123 06/17/24 1204 06/17/24 1233 BP: (!) 115/95 110/86 114/82 120/90 BP Location: Left arm Left arm Left arm Left arm Patient Position: Lying Lying Lying Lying Pulse: 107 104 56 56 Resp: Temp: (!) 35.8 C (96.5 F) TempSrc: Temporal SpO2: 98% Weight: Height: Intake/Output Summary (Last 24 hours) at 06/17/2024 1322 Last data filed at 06/17/2024 1039 Gross per 24 hour Intake -- Output 5 ml Net -5 ml Patient Vitals for the past 168 hrs: Weight Weight Method 06/15/24 1119 173 lb (78.5 kg) -- 06/15/24 0608 173 lb 15.1 oz (78.9 kg) -- 06/14/24 1409 175 lb 3.2 oz (79.5 kg) Bed scale 06/14/24 0340 180 lb 5.4 oz (81.8 kg) Bed scale 06/13/24 1717 180 lb 3.2 oz (81.7 kg) -- 06/13/24 1509 180 lb (81.6 kg) Stated Physical Exam Constitutional: NAD Psychiatric: Alert. Medical insight poor Neck: +mild JVD Respiratory: Lungs are CTA Heart: tachy ; Nl S1 and S2, no murmur, no rub, +gallop Abdomen: NABS; soft, non-tender, non-distended Extremities: 1+ bilateral LE edema Skin: Warm to touch and well perfused; right radial cath site c/d/I, without hematoma; pulse 2+, cap refill brisk Laboratory Tests: TROPONIN I, CONVENTIONAL SENSITIVITY TROPONIN I Date Value Ref Range Status 05/28/2024 0.037 (H) <0.034 ng/mL Final 05/28/2024 0.051 (H) <0.034 ng/mL Final 04/28/2024 0.032 <0.034 ng/mL Final 04/28/2024 0.025 <0.034 ng/mL Final 04/28/2024 0.020 <0.034 ng/mL Final TROPONIN I, HIGH SENSITIVITY Troponin HS, Serial Baseline Date Value Ref Range Status 06/13/2024 50 (H) <=35 ng/L Final Troponin HS, Serial Second Date Value Ref Range Status 06/13/2024 53 (H) <=35 ng/L Final Troponin HS Delta, Baseline to Second Date Value Ref Range Status 06/13/2024 3 <=2 ng/L Final Comment: This specimen was collected more than 20 minutes away from the 2 hour target. Use of this delta with the 2 hour troponin algorithm is not recommended, individualized clinical assessment is needed. A troponin delta greater than or equal to 15 ng/L is significant for acute cardiac injury. Values less than 15 but greater than 2 are an intermediate change requiring a 3rd serial troponin to be drawn. Values less than or equal to 2 indicate acute cardiac injury is not likely, see external algorithmsfor further clinical guidance. Troponin HS, Serial Third Date Value Ref Range Status 06/13/2024 49 (H) <=35 ng/L Final Troponin HS Delta, Second to Third Date Value Ref Range Status 06/13/2024 -4 <=2 ng/L Final Comment: This specimen was collected more than 20 minutes away from the 2 hour target. Use of this delta with the 2 hour troponin algorithm is not recommended, individualized clinical assessment is needed. A troponin delta greater than or equal to 15 ng/L is suggestive of acute cardiac injury. Values less than 15, see clinical guidance for ED and Inpatient algorithms. Recent Labs 06/15/24 0414 06/16/24 0918 NA 144 140 K 4.1 3.9 CL 103 104 CO2 26 27 BUN 37* 31* CREATININE 2.41* 1.91* Recent Labs 06/16/24 0918 WBC 5.5 HGB 15.6 HCT 47.5 MCV 99.2* PLT 195 No results for input(s): BNP in the last 72 hours. No results for input(s): TRIG, HDL, LDLCALC, CHOL in the last 72 hours. No results found for: LDLCHOLESTER Lab Results Component Value Date TSH 1.52 06/15/2024 EF BP Date Value Ref Range Status 06/15/2024 20 (A) 55 - 100 % Final 06/13/24 TRANSTHORACIC ECHOCARDIOGRAM (TTE) COMPLETE (CONTRAST/BUBBLE/3D PRN) 06/15/2024 1:59 PM (Final) Interpretation Summary Left Ventricle: Left ventricle is dilated. Mildly increased wall thickness. Severely reduced left ventricular systolic function. EF by 2D Simpsons Biplane is 20%. Global longitudinal strain is reduced with a value of -5.0%. Severe global hypokinesis present. Right Ventricle: Right ventricle is dilated. Moderately reduced systolic function. Aortic Valve: Mild (1+) regurgitation. Mitral Valve: Moderate (2+) regurgitation with an eccentrically directed jet and and may underestimate severity. Tricuspid Valve: Moderately elevated RVSP. RVSP is 46 mmHg. Pericardium: Small (<1 cm) pericardial effusion present. Findings do not support cardiac tamponade. IVC/Hepatic Veins: IVC diameter is dilated and decreases less than 50% during inspiration; therefore the estimated right atrial pressure is elevated (~15 mmHg). Slow blood flow, echogenic. Signed by: Ofelia Villalobos on 06/15/2024 1:59 PM Other reports reviewed: Cardiac Tests: ECG: Tracing reviewed. Telemetry findings reviewed: sinus tach ~ 100 EF BP Date Value Ref Range Status 06/15/2024 20 (A) 55 - 100 % Final THOMAS Peña CNP Date Of Service 06/17/2024 * Sergei Mcguire DO - 06/17/2024 1:15 PM EST Hospitalist Progress Note 06/17/2024 [phone]: Please page me ([phone]) for patient care issues. [phone]: Please page [facility] night Hospitalist for any issues. Subjective: Admit Date: 06/13/2024 PCP: No primary care provider on file. Room#: B2-243/B2-243 A Interval History: patient admitted for acute CHF exacerbation. No overnight issues. Denies chest pain, sob, abdominal pain, nausea, vomiting, diarrhea, constipation, fevers, or chills. Reports breathing easier, tolerating PO intake well. He is agreeable to LHC and RHC today. NPO diet Adult diet Regular; Low Fat/Low Chol/High Fiber/2 gm Na 24HR INTAKE/OUTPUT: Intake/Output Summary (Last 24 hours) at 06/17/2024 1315 Last data filed at 06/17/2024 1039 Gross per 24 hour Intake -- Output 5 ml Net -5 ml Past Medical History: Past Medical History: Diagnosis Date CHF (congestive heart failure) (HCC) CKD (chronic kidney disease) Hypercholesteremia Hypertension LABS: CBC: Recent Labs 06/16/24 0918 WBC 5.5 RBC 4.79 HGB 15.6 HCT 47.5 MCV 99.2* RDW 13.6 PLT 195 BMP: Recent Labs 06/15/24 0414 06/16/24 0918 NA 144 140 K 4.1 3.9 CL 103 104 CO2 26 27 BUN 37* 31* CREATININE 2.41* 1.91* GLUCOSE 103* 107* CALCIUM 8.9 8.3* ANIONGAP 15* 9 LIVER PROFILE: Recent Labs 06/15/24413 AST 31 ALT 96* BILITOT 1.6* ALKPHOS 110 PROT 5.7* PT/INR: No results for input(s): PROTIME, INR in the last 72 hours. CARDIAC ENZYMES: No results for input(s): TROPONINI in the last 72 hours. Procalcitonin: No results found for: PROCAL COVID-19 PCR: No results for input(s): COVID19 in the last 72 hours. Objective: Vitals: BP 120/90 (BP Location: Left arm, Patient Position: Lying) Pulse 56 Temp (!) 35.8 C (96.5 F) (Temporal) Resp 19 Ht 6' 1 (1.854 m) Wt 173 lb (78.5 kg) SpO2 98% BMI 22.82 kg/m Pulse Ox: SpO2 Av.7 % Min: 95 % Max: 99 % Supplemental O2: General appearance: No apparent distress, appears stated age and cooperative with exam Respiratory: Normal respiratory effort. CTA BL, no wheezing Cardiovascular: Regular rate and rhythm with no murmur Abdomen: Soft, non-tender, non-distended Skin: Skin color, texture, turgor normal. No rashes or lesions. Distal pulses present, 2+ BL LE edema present. Neurologic: grossly non-focal. Medications: carvedilol, 25 mg, Oral, BID WC cholecalciferol, 4,000 Units, Oral, Daily clopidogrel, 75 mg, Oral, Daily hydrALAZINE, 50 mg, Oral, TID influenza, 0.5 mL, IntraMUSCular, Prior to discharge isosorbide dinitrate, 30 mg, Oral, TID magnesium hydroxide, 30 mL, Oral, Nightly pantoprazole, 40 mg, Oral, BID AC sodium bicarbonate, 1,300 mg, Oral, BID Assessment Acute HFrEF LVEF of 20% SCHUYLER on CKD stage 3 Nephrology and cardiology on consult Worsening renal function in setting of IV diuresis Volume status improving Strict I/O's, daily weight Monitor on telemetry GDMT per cardiology. Plan for Right and left heart cath on 06/16/24, patient refused procedure due to fear Acute DVT of right popliteal, soleal and peroneal veins Acute DVT of right peroneal veins Eliquis 5mg po BID Hyperkalemia S/p kayexalate, IV lasix, resolved Upper abdominal pain CT Abdomen and pelvis negative Improved with PPI HTN HLD Home medications reviewed and resumed as indicated Medical Decision Making 06/15/24: patient with acute HFrEF exacerbation and worsening renal function, with IV diuresis, Cardiology and nephrology following. Improvement in volume status, however now with worse renal function. Hold off on further diuresis per nephrology recs. Repeat echo now with LVEF of 20%, cardiology following, plan for LHC and RHC tomorrow. CBC and BMP in the AM. Monitor on telemetry, Strict I/O's daily weights. 06/16/24: patient refused LHC and RHC today, claiming that he was fearful of the procedure and did not want procedure done in his groin. Discussed high recommendations to further evaluate cardiac function and that he is at elevated risk of further compromise of cardiac function, patient voiced understanding. Cr improved to 1.91 today. Nephrology following, respiratory status and volume status arestable. Continue to hold diuretics. CBC and CMP in the AM. 06/17/24: patient now agreeable to have LHC and RHC today. Cardiology following, no labs obtained this morning, unsure why. Further recs from cardiology following heart cath today. Nephrology following. Continue to hold diuresis for now. CBC and BMP in the AM. -am labs, replace lytes prn -increase activity -resume home medications as indicated -DVT prophylaxis: [] Lovenox [] Heparin [] SCDs [x] Encourage ambulation [x] Already on Anticoagulation Anticipated Discharge - Date - 06/19 - Location - Home - Pending the following - stable cardiac and renal function, clearance by consultants. Toxic drug monitoring/narrow therapeutic index drug monitoring : # Drug name : # Route administered : # Method of monitoring : Extended Emergency Contact Information Primary Emergency Contact: Indira Medina Mobile Relation: Sister Secondary Emergency Contact: Kaitlin Hicks Mobile Relation: Significant Other Sergei Mcguire DO Division of Hospitalist Medicine Inpatient Medical Services/[facility] PAGER: Epic chat * Sergei Mcguire DO - 06/16/2024 3:41 PM EST Hospitalist Progress Note 06/16/2024 [phone]: Please page me ([phone]) for patient care issues. [phone]: Please page [facility] night Hospitalist for any issues. Subjective: Admit Date: 06/13/2024 PCP: No primary care provider on file. Room#: B2-243/B2-243 A Interval History: patient admitted for acute CHF exacerbation. No overnight issues. Denies chest pain, sob, abdominal pain, nausea, vomiting, diarrhea, constipation, fevers, or chills. Reports breathing easier, tolerating PO intake well. He refused LHC and RHC today due to not wanting procedure to be done in his groin. Adult diet Regular; Low Sodium (2 gm); 1800 ml 24HR INTAKE/OUTPUT: No intake or output data in the 24 hours ending 06/16/24 1541 Past Medical History: Past Medical History: Diagnosis Date CHF (congestive heart failure) (HCC) CKD (chronic kidney disease) Hypercholesteremia Hypertension LABS: CBC: Recent Labs 06/16/24 0918 WBC 5.5 RBC 4.79 HGB 15.6 HCT 47.5 MCV 99.2* RDW 13.6 PLT 195 BMP: Recent Labs 06/14/24 0342 06/15/24 0414 06/16/24 0918 NA 144 144 140 K 3.6 4.1 3.9 CL 118* 103 104 CO2 15* 26 27 BUN 32* 37* 31* CREATININE 1.74* 2.41* 1.91* GLUCOSE 81 103* 107* CALCIUM 7.2* 8.9 8.3* ANIONGAP 11 15* 9 LIVER PROFILE: Recent Labs 06/15/24 0414 AST 31 ALT 96* BILITOT 1.6* ALKPHOS 110 PROT 5.7* PT/INR: No results for input(s): PROTIME, INR in the last 72 hours. CARDIAC ENZYMES: No results for input(s): TROPONINI in the last 72 hours. Procalcitonin: No results found for: PROCAL COVID-19 PCR: No results for input(s): COVID19 in the last 72 hours. Objective: Vitals: BP 98/73 (BP Location: Left arm, Patient Position: Lying) Pulse 52 Temp (!) 35.6 C (96.1 F) (Temporal) Resp 18 Ht 6' 1 (1.854 m) Wt 173 lb (78.5 kg) SpO2 99% BMI 22.82 kg/m Pulse Ox: SpO2 Av.5 % Min: 97 % Max: 99 % Supplemental O2: General appearance: No apparent distress, appears stated age and cooperative with exam Respiratory: Normal respiratory effort. CTA BL, no wheezing Cardiovascular: Regular rate and rhythm with no murmur Abdomen: Soft, non-tender, non-distended Skin: Skin color, texture, turgor normal. No rashes or lesions. Distal pulses present, 2+ BL LE edema present. Neurologic: grossly non-focal. Medications: carvedilol, 25 mg, Oral, BID WC cholecalciferol, 4,000 Units, Oral, Daily clopidogrel, 75 mg, Oral, Daily hydrALAZINE, 25 mg, Oral, TID influenza, 0.5 mL, IntraMUSCular, Prior to discharge isosorbide dinitrate, 20 mg, Oral, TID pantoprazole, 40 mg, Oral, BID AC sodium bicarbonate, 1,300 mg, Oral, BID Assessment Acute HFrEF LVEF of 20% SCHUYLER on CKD stage 3 Nephrology and cardiology on consult Worsening renal function in setting of IV diuresis Volume status improving Strict I/O's, daily weight Monitor on telemetry GDMT per cardiology. Plan for Right and left heart cath on 06/16/24, patient refused procedure due to fear Acute DVT of right popliteal, soleal and peroneal veins Acute DVT of right peroneal veins Eliquis 5mg po BID Hyperkalemia S/p kayexalate, IV lasix, resolved Upper abdominal pain CT Abdomen and pelvis negative Improved with PPI HTN HLD Home medications reviewed and resumed as indicated Medical Decision Making 06/15/24: patient with acute HFrEF exacerbation and worsening renal function, with IV diuresis, Cardiology and nephrology following. Improvement in volume status, however now with worse renal function. Hold off on further diuresis per nephrology recs. Repeat echo now with LVEF of 20%, cardiology following, plan for LHC and RHC tomorrow. CBC and BMP in the AM. Monitor on telemetry, Strict I/O's daily weights. 06/16/24: patient refused LHC and RHC today, claiming that he was fearful of the procedure and did not want procedure done in his groin. Discussed high recommendations to further evaluate cardiac function and that he is at elevated risk of further compromise of cardiac function, patient voiced understanding. Cr improved to 1.91 today. Nephrology following, respiratory status and volume status arestable. Continue to hold diuretics. CBC and CMP in the AM. -am labs, replace lytes prn -increase activity -resume home medications as indicated -DVT prophylaxis: [] Lovenox [] Heparin [] SCDs [x] Encourage ambulation [x] Already on Anticoagulation Anticipated Discharge - Date - 06/18 - Location - Home - Pending the following - stable cardiac and renal function, clearance by consultants. Toxic drug monitoring/narrow therapeutic index drug monitoring : # Drug name : # Route administered : # Method of monitoring : Extended Emergency Contact Information Primary Emergency Contact: Indira Medina Mobile Relation: Sister Secondary Emergency Contact: Kaitlin Hicks Mobile Relation: Significant Other Sergei Mcguire DO Division of Hospitalist Medicine Inpatient Medical Services/[facility] PAGER: Epic chat * Maritza Linn, THOMAS - WHITING MACHINE OPERATOR - 06/16/2024 11:42 AM EST [facility] Progress Note Subjective/ 44 y.o. year old male who we are seeing in consultation for SCHUYLER/CKD. NAEON Feels ok Resting in bed No edema Appetite fair BP is stable No issues with UOP No other new issues at this time ROS done and negative unless mentioned as above No change in PFSH All data labs/interval notes and overnight issues are reviewed Objective/ Vitals: 06/15/24 1937 06/16/24 0115 06/16/24 0716 06/16/24 1110 BP: 102/74 122/90 107/75 BP Location: Left arm Patient Position: Sitting Pulse: 57 105 56 100 Resp: 18 16 15 Temp: 36.3 C (97.4 F) 36.3 C (97.4 F) 36.6 C (97.8 F) TempSrc: Temporal Temporal Temporal SpO2: 97% 99% 99% Weight: Height: No intake or output data in the 24 hours ending 06/16/24 1142 carvedilol, 25 mg, Oral, BID WC cholecalciferol, 4,000 Units, Oral, Daily clopidogrel, 75 mg, Oral, Daily hydrALAZINE, 25 mg, Oral, TID influenza, 0.5 mL, IntraMUSCular, Prior to discharge isosorbide dinitrate, 20 mg, Oral, TID pantoprazole, 40 mg, Oral, BID AC sodium bicarbonate, 1,300 mg, Oral, BID PRN medications: acetaminophen OR acetaminophen, ondansetron ODT OR ondansetron, polyethylene glycol (PEG) 3350 Constitutional: Alert, awake Eyes: No icterus, no pallor HEENT: no pallor/cyanosis or icterus Cardiovascular: S1, S2 without m/r/g Respiratory: CTA B without w/r/r GI: +bs, soft, nt : agustin -ve Ext: no LE edema Neck: supple, no thyroid enlargement, no JVD elevation Skin: warm, moist, no rashes Data: Results from last 7 days Lab Units 06/16/24 0918 06/15/24 0414 06/14/24 0342 SODIUM mmol/L 140 144 144 POTASSIUM mmol/L 3.9 4.1 3.6 CHLORIDE mmol/L 104 103 118* CO2 mmol/L 27 26 15* BUN mg/dL 31* 37* 32* CREATININE mg/dL 1.91* 2.41* 1.74* GLUCOSE mg/dL 107* 103* 81 CALCIUM mg/dL 8.3* 8.9 7.2* Results from last 7 days Lab Units 06/16/24 0918 06/13/24 1459 WBC AUTO 10*3/uL 5.5 8.7 HEMOGLOBIN g/dL 15.6 16.4 HEMATOCRIT % 47.5 52.1* PLATELETS 10*3/uL 195 217 Assessment/Plan SCHUYLER/ATN, possibly 2/2 volume depletion from over-diuresis vs CRS (N17.0) Acute on chronic HFrEF exacerbation (I50.23) Severe protein calorie malnutrition (E43) Noncompliance with medication (Z91.1) Abdominal pain CKD3b Acute BLE DVTs Plan: -ATN appears to have peaked as renal function is improving, approaching bl~1.5- 1.7, non-oliguric, BP stable -Hold diuresis through today 06/16 as appears euvolemic on exam -Ok to resume po diuresis tomorrow 06/17 -Ok for prn diuresis for s/s of acute respiratory distress -EF 20% per echo 06/15, noted IVC dilation -Needs daily standing weights and strict I&Os -Avoid nephrotoxins and contrast dye -Dose all meds per current eGFR -Anticoagulation per primary team -Needs to be compliant with all care on a regular basis to be successful and prevent future hospitalizations -Complex MDM -All other care per primary team -We will follow closely with you Thank you for the consult and the opportunity to participate in the care of this patient. Please donot hesitate to contact us with any questions or concerns. Maritza Linn APRN, WHITING MACHINE OPERATOR [facility], [facility] [phone] Cosigned by Anand Mccullough MD at 06/16/2024 4:46 PM EST Associated attestation - Anand Mccullough MD - 06/16/2024 4:46 PM EST Seen and examined. Agree with above A and p. Variances as noted below. SCHUYLER/ATN, possibly 2/2 volume depletion from over-diuresis vs CRS (N17.0) Acute on chronic HFrEF exacerbation (I50.23) Met acidosis 87.21 Z91.1 Cr improving. Continue to hold diuresis. Resume diuresis tomorrow. C/w sodium bicarbonate, acidosis seems to be improving from it. Some level of hypoalbuminemia, doesn't appear to be severe. Not renal in origin * Luma Joy APRN - VIKKI - 06/16/2024 10:32 AM EST [facility] Cardiology /Electrophysiology Progress Note HPI / Interval History: Carlo Medina is a 44 y.o. male with a history of heart failure reduced EF diagnosed February 2024, likely due to nonischemic cardiomyopathy, EF 30% with known moderate mitral regurgitation, chronic kidney disease, who was just in the hospital from 05/28-06/01 and comes back now due to worsening abdominal pain and edema with dyspnea. He was diagnosed with possible gallbladder disease at his lastadmission but wanted to leave before surgery could complete the work up. He says that last week he was so tired he had difficulty getting out of bed and he had to miss work all week long. He was seenin our office on June 08, and at that time he was felt to be volume overloaded and his Lasix was made daily instead of every other day. Besides feeling weak, he also was noted abdominal pain which is intermittent, but fairly severe when it occurs. Interestingly, this pain is worse when he does not eat and improves when he does. He has had some elevation of liver enzymes and scans have suggested possible cholecystitis and he was waiting for an outpatient HIDA scan. He denies associated nausea, vomiting, diarrhea, fevers, chills. He denies other symptoms of congestive heart failure such as PND, orthopnea but he does have bilateral lower extremity edema. He denies chest pain, palpitations or syncope. He came into the ER mostly because of his abdominal pain. He was treated with IV Lasix and IV morphine and today he says he feels better and has more energy and less abdominal pain. Lower extremity duplexes revealed that he has bilateral deep venous thrombosis. CT scan of his abdomen wasessentially negative. He was on the schedule to have a right and left heart catheterization however he refused having it this morning. He reports to me that he is not ready to have testing done. He reports that he is nervous about it and scared. I had long discussion with him regarding how important this is to have completed so that we know how to better direct his care. I have discussed procedure in detail. Purpose of medications, procedures, poor outcomes that will likely happen if he doesn't have work up completed. He is likely having poor cardiac output. I have instructed him that he is at risk for sudden cardiac . He denies any complaints of chest pain, shortness of breath, orthopnea, edema. Reports that he doesn't want to discuss any more today and that he is more concerned about eating his breakfast right now. OF note, he has occasional been refusing his medications. Assessment/Plan HF NYHA Class [] I [] II [] III [] IV []Unable to assess [] N/A HFrEF: Initially diagnosed in February and thought to be hypertension related and the plan was to eventually do a heart cath but he ran into issues with not having insurance and had hospital readmissions. He came in with abdominal pain and there is a concern that he could be having low cardiac output causing this. -we will continue to treat him medically while he is here -we will continue to have on-going discussion regarding the importance of needing further testing (heart catheterization). This really needs to be done this admission if at all possible. -continue current med regimen -daily weights, I & Os, labs while diuresing. Currently diuretic on hold d/t SCHUYLER -Echo as below. EF 20% Recurrent abdominal pain: CT Scan was normal and didn't show any evidence of ascites or biliary process. This is likely low cardiac output. -we will continue discussion of right and left heart catheterization. CKD: Non-anion gap acidosis of uncertain etiology. He is on sodium bicarb tablets which could aggravate his heart failure. -nephrology is on consult -need to continue to monitor renal function Acute DVT: per primary team Medications: carvedilol, 25 mg, Oral, BID WC cholecalciferol, 4,000 Units, Oral, Daily clopidogrel, 75 mg, Oral, Daily hydrALAZINE, 25 mg, Oral, TID influenza, 0.5 mL, IntraMUSCular, Prior to discharge isosorbide dinitrate, 20 mg, Oral, TID pantoprazole, 40 mg, Oral, BID AC sodium bicarbonate, 1,300 mg, Oral, BID Infusion Medications: Physical Examination: Vitals: 06/15/24 1529 06/15/24 1937 06/16/24 0115 06/16/24 0716 BP: 119/87 102/74 122/90 BP Location: Left arm Left arm Patient Position: Lying Sitting Pulse: 111 57 105 56 Resp: 18 16 Temp: 37.3 C (99.1 F) 36.3 C (97.4 F) 36.3 C (97.4 F) TempSrc: Temporal Temporal Temporal SpO2: 100% 97% 99% Weight: Height: No intake or output data in the 24 hours ending 06/16/24 1050 Patient Vitals for the past 168 hrs: Weight Weight Method 06/15/24 1119 173 lb (78.5 kg) -- 06/15/24 0608 173 lb 15.1 oz (78.9 kg) -- 06/14/24 1409 175 lb 3.2 oz (79.5 kg) Bed scale 06/14/24 0340 180 lb 5.4 oz (81.8 kg) Bed scale 06/13/24 1717 180 lb 3.2 oz (81.7 kg) -- 06/13/24 1509 180 lb (81.6 kg) Stated Physical Exam Constitutional: NAD Psychiatric: Alert. Medical insight fair Neck: No JVD Respiratory: Lungs are CTA Heart: RRR ; Nl S1 and S2, no murmur, no rub, gallop Abdomen: NABS; soft, non-tender, non-distended Extremities: 1+ LE edema Skin: Warm to touch and well perfused Laboratory Tests: TROPONIN I, CONVENTIONAL SENSITIVITY TROPONIN I Date Value Ref Range Status 05/28/2024 0.037 (H) <0.034 ng/mL Final 05/28/2024 0.051 (H) <0.034 ng/mL Final 04/28/2024 0.032 <0.034 ng/mL Final 04/28/2024 0.025 <0.034 ng/mL Final 04/28/2024 0.020 <0.034 ng/mL Final TROPONIN I, HIGH SENSITIVITY Troponin HS, Serial Baseline Date Value Ref Range Status 06/13/2024 50 (H) <=35 ng/L Final Troponin HS, Serial Second Date Value Ref Range Status 06/13/2024 53 (H) <=35 ng/L Final Troponin HS Delta, Baseline to Second Date Value Ref Range Status 06/13/2024 3 <=2 ng/L Final Comment: This specimen was collected more than 20 minutes away from the 2 hour target. Use of this delta with the 2 hour troponin algorithm is not recommended, individualized clinical assessment is needed. A troponin delta greater than or equal to 15 ng/L is significant for acute cardiac injury. Values less than 15 but greater than 2 are an intermediate change requiring a 3rd serial troponin to be drawn. Values less than or equal to 2 indicate acute cardiac injury is not likely, see external algorithmsfor further clinical guidance. Troponin HS, Serial Third Date Value Ref Range Status 06/13/2024 49 (H) <=35 ng/L Final Troponin HS Delta, Second to Third Date Value Ref Range Status 06/13/2024 -4 <=2 ng/L Final Comment: This specimen was collected more than 20 minutes away from the 2 hour target. Use of this delta with the 2 hour troponin algorithm is not recommended, individualized clinical assessment is needed. A troponin delta greater than or equal to 15 ng/L is suggestive of acute cardiac injury. Values less than 15, see clinical guidance for ED and Inpatient algorithms. Recent Labs 06/13/24 1459 06/13/24 2035 06/14/24 0342 06/15/24 0414 06/16/24 0918 NA 142 142 144 144 140 K 5.7* 4.9 3.6 4.1 3.9 CL 113* 114* 118* 103 104 CO2 17* 18* 15* 26 27 BUN 36* 34* 32* 37* 31* CREATININE 2.32* 2.03* 1.74* 2.41* 1.91* Recent Labs 06/13/24 1459 06/16/24 0918 WBC 8.7 5.5 HGB 16.4 15.6 HCT 52.1* 47.5 MCV 103.2* 99.2* PLT 217 195 Recent Labs 06/13/24 1459 BNP 30,000* Recent Labs 06/14/24 0342 TRIG 68 HDL 16* LDLCALC 100* CHOL 130 No results found for: LDLCHOLESTER Lab Results Component Value Date TSH 1.52 06/15/2024 EF BP Date Value Ref Range Status 06/15/2024 20 (A) 55 - 100 % Final 06/13/24 TRANSTHORACIC ECHOCARDIOGRAM (TTE) COMPLETE (CONTRAST/BUBBLE/3D PRN) 06/15/2024 1:59 PM (Final) Interpretation Summary Left Ventricle: Left ventricle is dilated. Mildly increased wall thickness. Severely reduced left ventricular systolic function. EF by 2D Simpsons Biplane is 20%. Global longitudinal strain is reduced with a value of -5.0%. Severe global hypokinesis present. Right Ventricle: Right ventricle is dilated. Moderately reduced systolic function. Aortic Valve: Mild (1+) regurgitation. Mitral Valve: Moderate (2+) regurgitation with an eccentrically directed jet and and may underestimate severity. Tricuspid Valve: Moderately elevated RVSP. RVSP is 46 mmHg. Pericardium: Small (<1 cm) pericardial effusion present. Findings do not support cardiac tamponade. IVC/Hepatic Veins: IVC diameter is dilated and decreases less than 50% during inspiration; therefore the estimated right atrial pressure is elevated (~15 mmHg). Slow blood flow, echogenic. Signed by: Ofelia Villalobos on 06/15/2024 1:59 PM Other reports reviewed: Cardiac Tests: ECG: See report Tracing reviewed. Telemetry findings reviewed: SR EF BP Date Value Ref Range Status 06/15/2024 20 (A) 55 - 100 % Final THOMAS Valencia CNP Date Of Service 06/16/2024 Cosigned by Angel Luis Morales MD at 06/16/2024 4:16 PM EST Associated attestation - Angel Luis Morales MD - 06/16/2024 4:16 PM EST This patient was seen and personally examined by me on 06/16/24. Labs, imaging studies and electronic medical record reviewed. See [x]progress note []H&P []Consult documented by [x]ISAAC which reflects my hpi, pmh, psh, ros, fh, sh as well with my additions, as I discussed with the [x]ISAAC. For myexam, assessment and plan see below. PHYSICAL EXAM: General Appearance: [x]WDWN []Obese []Cachectic []Thin []ill Neck: Jvd [x]Present []Absent Lungs: [x]Clear []Crackles []Wheezes []Rhonchi / Respiratory effort []Labored [x]Non-Labored Heart: [x]RRR []Irregularly Irregular [x]murmur present []murmur absent/ Peripheral Edema []Absent [x]Present Assessment/Plan HFrEF: Unfortunately, he refused to proceed with the right and left heart catheterization this morning, which we ordered for the reasons outlined clearly in her note from 06/15/2024. He says he watched a video on his phone outlining the procedure and he was frightened to proceed. Dr. Diaz, who was to do the procedure, did come talk to him and explained the procedure at length as well as the reason for the procedure. He still did not want to proceed. By the time I discussed this with him this afternoon, he seems to have had a change of heart and says he would proceed as long as they go frommy arm. I am quite concerned that he will have very poor hemodynamic numbers and we may need to domany more procedures in the future, and I told him this is a real possibility. In the meantime, we will continue medical therapy for his left ventricular dysfunction, although he has been refusing some doses of his carvedilol. We also held his diuretic because of his worsening renal function, his creatinine is a little better today. Acute deep venous thrombosis: Patient was diagnosed with bilateral DVT, likely due to venous stasisrelated to his poor cardiac output. He got a couple doses of Eliquis, but these have now been held for over 24 hours in anticipation of his heart catheterization. He did get a one-time dose of Lovenox last night, and I will give him another dose tonight just to minimize the amount of time he is not anticoagulated. Angel Luis Morales MD * Sergei Mcguire, DO - 06/15/2024 5:24 PM EST Hospitalist Progress Note 06/15/[id number]: Please page me ([phone]) for patient care issues. [phone]: Please page [facility] night Hospitalist for any issues. Subjective: Admit Date: 06/13/2024 PCP: No primary care provider on file. Room#: B2-243/B2-243 A Interval History: patient admitted for acute CHF exacerbation. No overnight issues. Denies chest pain, sob, abdominal pain, nausea, vomiting, diarrhea, constipation, fevers, or chills. Reports breathing easier, tolerating PO intake well. Adult diet Regular; Low Sodium (2 gm); 1800 ml 24HR INTAKE/OUTPUT: Intake/Output Summary (Last 24 hours) at 06/15/2024 1724 Last data filed at 06/15/2024 1033 Gross per 24 hour Intake -- Output 3400 ml Net -3400 ml Past Medical History: Past Medical History: Diagnosis Date CHF (congestive heart failure) (HCC) CKD (chronic kidney disease) Hypercholesteremia Hypertension LABS: CBC: Recent Labs 06/13/24 1459 WBC 8.7 RBC 5.05 HGB 16.4 HCT 52.1* MCV 103.2* RDW 14.6 PLT 217 BMP: Recent Labs 06/13/24 2035 06/14/24 0342 06/15/24 0414 NA 142 144 144 K 4.9 3.6 4.1 CL 114* 118* 103 CO2 18* 15* 26 BUN 34* 32* 37* CREATININE 2.03* 1.74* 2.41* GLUCOSE 104* 81 103* CALCIUM 8.6 7.2* 8.9 ANIONGAP 10 11 15* LIVER PROFILE: Recent Labs 06/13/24 1459 06/15/24 0414 AST 47* 31 ALT 121* 96* BILITOT 1.5* 1.6* ALKPHOS 129 110 PROT 6.0* 5.7* PT/INR: No results for input(s): PROTIME, INR in the last 72 hours. CARDIAC ENZYMES: No results for input(s): TROPONINI in the last 72 hours. Procalcitonin: No results found for: PROCAL COVID-19 PCR: No results for input(s): COVID19 in the last 72 hours. Objective: Vitals: BP 119/87 (BP Location: Left arm, Patient Position: Lying) Pulse 111 Temp 37.3 C (99.1 F) (Temporal) Resp 18 Ht 6' 1 (1.854 m) Wt 173 lb (78.5 kg) SpO2 100% BMI 22.82 kg/m Pulse Ox: SpO2 Av.6 % Min: 97 % Max: 100 % Supplemental O2: General appearance: No apparent distress, appears stated age and cooperative with exam Respiratory: Normal respiratory effort. CTA BL, no wheezing Cardiovascular: Regular rate and rhythm with no murmur Abdomen: Soft, non-tender, non-distended Skin: Skin color, texture, turgor normal. No rashes or lesions. Distal pulses present, 2+ BL LE edema present. Neurologic: grossly non-focal. Medications: carvedilol, 25 mg, Oral, BID WC cholecalciferol, 4,000 Units, Oral, Daily clopidogrel, 75 mg, Oral, Daily enoxaparin, 1 mg/kg, SubCUTAneous, Once hydrALAZINE, 25 mg, Oral, TID influenza, 0.5 mL, IntraMUSCular, Prior to discharge isosorbide dinitrate, 20 mg, Oral, TID pantoprazole, 40 mg, Oral, BID AC sodium bicarbonate, 1,300 mg, Oral, BID Assessment Acute HFrEF LVEF of 30% SCHUYLER on CKD stage 3 Nephrology and cardiology on consult Worsening renal function in setting of IV diuresis Volume status improving Strict I/O's, daily weight Monitor on telemetry GDMT per cardiology. Plan for Right and left heart cath on 06/16/24 Acute DVT of right popliteal, soleal and peroneal veins Acute DVT of right peroneal veins Eliquis 5mg po BID Hyperkalemia S/p kayexalate, IV lasix, resolved Upper abdominal pain CT Abdomen and pelvis negative Improved with PPI HTN HLD Home medications reviewed and resumed as indicated Medical Decision Making 06/15/24: patient with acute HFrEF exacerbation and worsening renal function, with IV diuresis, Cardiology and nephrology following. Improvement in volume status, however now with worse renal function. Hold off on further diuresis per nephrology recs. Repeat echo now with LVEF of 20%, cardiology following, plan for LHC and RHC tomorrow. CBC and BMP in the AM. Monitor on telemetry, Strict I/O's daily weights. -am labs, replace lytes prn -increase activity -resume home medications as indicated -DVT prophylaxis: [] Lovenox [] Heparin [] SCDs [x] Encourage ambulation [x] Already on Anticoagulation Anticipated Discharge - Date - 06/18 - Location - Home - Pending the following - stable cardiac and renal function, clearance by consultants. Toxic drug monitoring/narrow therapeutic index drug monitoring : # Drug name : # Route administered : # Method of monitoring : Extended Emergency Contact Information Primary Emergency Contact: Indira Medina Mobile Relation: Sister Secondary Emergency Contact: Kaitlin Hicks Mobile Relation: Significant Other Sergei Mcguire DO Division of Hospitalist Medicine Inpatient Medical Services/[facility] PAGER: Epic chat * Angel Luis Morales MD - 06/15/2024 4:08 PM EST [facility] [place] [facility] Cardiology /Electrophysiology Progress Note HPI / Interval History: He says his abdominal pain has improved with diuresis overnight, and his weight is down about 7 pounds since admission. Unfortunately, his creatinine went up with diuresis so he had to stop the Lasixtoday. Reviewed his echocardiogram from earlier today, and there is been interval worsening of LV and RV function since February, which correlates well with his worsening symptoms. The estimated cardiac output by echocardiography is only 2.4 L/min. I did discuss these findings with the patient andhis significant other, and I discussed with him the potential implications of cardiogenic shock with regards to his current symptoms as well as his long-term prognosis. He seems willing at this pointto proceed with more invasive procedure such as heart catheterization if it will give us the answeras we need. Historically, he has refused to go to [facility] when this was offered to him 2 weeks ago, but he may consider it now if it is absolutely indicated based on his cath findings. Assessment/Plan HF NYHA Class [] I [] II [] III [x] IV []Unable to assess [] N/A Heart failure with reduced ejection fraction: This was diagnosed initially in February and was thought to be hypertension related. The plan is eventually to do an outpatient ischemia workup, but that has not been done today because he is had issues with insurance as well as recurrent hospital admissions. He is coming in now with mostly low output symptoms, specifically abdominal pain. This did improve with diuresis, but his creatinine got worse. His echocardiogram today shows worsening LV and RV function and I suspect he has borderline criteria for cardiogenic shock. I had a long discussion with the patient and hopefully he is willing to proceed with further investigation. A. Continue current doses of carvedilol, hydralazine and isosorbide B. Right and left heart catheterization tomorrow, I discussed with patient who agrees to proceed. C. Discontinue lasix due to elevated Cr. D. Monitor I's and O's, daily weight, daily BMP E. Further management based on the results of his heart catheterization. Recurrent abdominal pain: This pain has been going on for over a month, and does not sound like classic biliary pain or decreased cardiac output given the fact that the pain is worse when he has not eaten and improves when he does. His CT scan was normal and did not show significant amount of ascites, nor did it suggest an active biliary process. Given his echocardiogram findings today, my suspicion is more leaning towards congestion and low cardiac output as the cause of his abdominal pain. Assess filling pressures with right and left heart catheterization which is planned for tomorrow Further management of his abdominal pain based on the findings of his heart cath Chronic kidney disease: He says he really did have kidney disease until he was diagnosed with heartfailure, although his labs dating back to January have shown a creatinine of 1.5 or greater and we do not have anything older than that. He admits that he was told he had hypertension many years ago and has not had it treated which could be the etiology of both his heart and kidney disease. Also, inthe past month and a half, he has developed a non-anion gap acidosis of uncertain etiology. He has been put on sodium bicarbonate tablets which may help the acidosis, but could aggravate his heart failure. Today's bicarbonate level is normal. Nephrology is following the patient. Consider nephrology reassessment Monitor renal function closely after his upcoming heart catheterization For now continue sodium bicarbonate, but may need to stop this based on his heart failure Acute deep venous thrombosis: This was just discovered this admission, may be related to his frequent hospitalizations and decreased mobility last week because he felt so weak. He has been started onEliquis by the primary service, and his last dose was this morning. A. Hold Eliquis in anticipation of upcoming heart catheterization B. Will give a one-time dose of Lovenox so that he is adequately anticoagulated for as much time aspossible Medications: carvedilol, 25 mg, Oral, BID WC cholecalciferol, 4,000 Units, Oral, Daily clopidogrel, 75 mg, Oral, Daily enoxaparin, 1 mg/kg, SubCUTAneous, Once hydrALAZINE, 25 mg, Oral, TID influenza, 0.5 mL, IntraMUSCular, Prior to discharge isosorbide dinitrate, 20 mg, Oral, TID pantoprazole, 40 mg, Oral, BID AC sodium bicarbonate, 1,300 mg, Oral, BID Physical Examination: Vitals: 06/15/24 0714 06/15/24 1102 06/15/24 1119 06/15/24 1529 BP: 120/90 122/93 119/87 BP Location: Left arm Patient Position: Lying Pulse: 57 103 111 Resp: 16 16 18 Temp: 36.3 C (97.3 F) 36.2 C (97.1 F) 37.3 C (99.1 F) TempSrc: Temporal Temporal Temporal SpO2: 100% 100% 100% Weight: 173 lb (78.5 kg) Height: 6' 1 (1.854 m) Intake/Output Summary (Last 24 hours) at 06/15/2024 1608 Last data filed at 06/15/2024 1033 Gross per 24 hour Intake -- Output 3400 ml Net -3400 ml Patient Vitals for the past 168 hrs: Weight Weight Method 06/15/24 1119 173 lb (78.5 kg) -- 06/15/24 0608 173 lb 15.1 oz (78.9 kg) -- 06/14/24 1409 175 lb 3.2 oz (79.5 kg) Bed scale 06/14/24 0340 180 lb 5.4 oz (81.8 kg) Bed scale 06/13/24 1717 180 lb 3.2 oz (81.7 kg) -- 06/13/24 1509 180 lb (81.6 kg) Stated Physical Exam Constitutional: NAD Psychiatric: Alert. Medical insight fair Neck: 8 cmJVD Respiratory: Lungs are clear Heart: RRR ; Nl S1 and S2, 2/6 systolic murmur, S3 gallop Abdomen: NABS; soft, non-tender, non-distended Extremities: 1-2+ bilateral LE edema Skin: Warm to touch and well perfused Laboratory Tests: TROPONIN I, CONVENTIONAL SENSITIVITY TROPONIN I Date Value Ref Range Status 05/28/2024 0.037 (H) <0.034 ng/mL Final 05/28/2024 0.051 (H) <0.034 ng/mL Final 04/28/2024 0.032 <0.034 ng/mL Final 04/28/2024 0.025 <0.034 ng/mL Final 04/28/2024 0.020 <0.034 ng/mL Final TROPONIN I, HIGH SENSITIVITY Troponin HS, Serial Baseline Date Value Ref Range Status 06/13/2024 50 (H) <=35 ng/L Final Troponin HS, Serial Second Date Value Ref Range Status 06/13/2024 53 (H) <=35 ng/L Final Troponin HS Delta, Baseline to Second Date Value Ref Range Status 06/13/2024 3 <=2 ng/L Final Comment: This specimen was collected more than 20 minutes away from the 2 hour target. Use of this delta with the 2 hour troponin algorithm is not recommended, individualized clinical assessment is needed. A troponin delta greater than or equal to 15 ng/L is significant for acute cardiac injury. Values less than 15 but greater than 2 are an intermediate change requiring a 3rd serial troponin to be drawn. Values less than or equal to 2 indicate acute cardiac injury is not likely, see external algorithmsfor further clinical guidance. Troponin HS, Serial Third Date Value Ref Range Status 06/13/2024 49 (H) <=35 ng/L Final Troponin HS Delta, Second to Third Date Value Ref Range Status 06/13/2024 -4 <=2 ng/L Final Comment: This specimen was collected more than 20 minutes away from the 2 hour target. Use of this delta with the 2 hour troponin algorithm is not recommended, individualized clinical assessment is needed. A troponin delta greater than or equal to 15 ng/L is suggestive of acute cardiac injury. Values less than 15, see clinical guidance for ED and Inpatient algorithms. Recent Labs 06/13/24 1459 06/13/24 2035 06/14/24 0342 06/15/24 0414 NA 142 142 144 144 K 5.7* 4.9 3.6 4.1 CL 113* 114* 118* 103 CO2 17* 18* 15* 26 BUN 36* 34* 32* 37* CREATININE 2.32* 2.03* 1.74* 2.41* Recent Labs 06/13/24 1459 WBC 8.7 HGB 16.4 HCT 52.1* MCV 103.2* PLT 217 Recent Labs 06/13/24 1459 BNP 30,000* Recent Labs 06/14/24 0342 TRIG 68 HDL 16* LDLCALC 100* CHOL 130 No results found for: LDLCHOLESTER Lab Results Component Value Date TSH 1.52 06/15/2024 EF BP Date Value Ref Range Status 06/15/2024 20 (A) 55 - 100 % Final TRANSTHORACIC ECHOCARDIOGRAM (TTE) COMPLETE (CONTRAST/BUBBLE/3D PRN) 06/15/2024 1:59 PM (Final) Interpretation Summary Left Ventricle: Left ventricle is dilated. Mildly increased wall thickness. Severely reduced left ventricular systolic function. EF by 2D Simpsons Biplane is 20%. Global longitudinal strain is reduced with a value of -5.0%. Severe global hypokinesis present. Right Ventricle: Right ventricle is dilated. Moderately reduced systolic function. Aortic Valve: Mild (1+) regurgitation. Mitral Valve: Moderate (2+) regurgitation with an eccentrically directed jet and and may underestimate severity. Tricuspid Valve: Moderately elevated RVSP. RVSP is 46 mmHg. Pericardium: Small (<1 cm) pericardial effusion present. Findings do not support cardiac tamponade. IVC/Hepatic Veins: IVC diameter is dilated and decreases less than 50% during inspiration; therefore the estimated right atrial pressure is elevated (~15 mmHg). Slow blood flow, echogenic. Signed by: Ofelia Villalobos on 06/15/2024 1:59 PM Reviewed and agree. The LV and RV function are worse than in February. More MR. Telemetry findings reviewed: NSR, PVCs EF BP Date Value Ref Range Status 06/15/2024 20 (A) 55 - 100 % Final Angel Luis Morales MD Date Of Service 06/15/2024 * Dudley Oropeza RD - 06/14/2024 2:30 PM EST Nutrition Assessment Type and Reason for Visit: Initial, Consult (diet education) Nutrition Recommendations/Plan: Continue with Adult diet Regular; Low Sodium (2 gm) Provided pt and visitor with diet education/handout on Low sodium diet restriction to manage HF symptoms. Decreased appetite/intakes with dysgeusia/dry mouth/early satiety. Initiate Ensure Plus High Protein once daily per MNT protocol. Ensure Plus High Protein provides 350 kcals, 20g protein per serving.Pt did not want to receive more than once daily for now. Please document pt's PO intakes via flowsheet to accurately assess PO intake adequacy. Monitor intakes, weights, and labs weekly. RD will follow. Educated on low sodium diet Learners: Patient and Significant Other Readiness: Acceptance Method: Explanation and Handout; provided low sodium nutrition therapy and handout on sodium content of foods from the Nutrition Care Manual Response: Verbalizes Understanding Contact name and number provided. Malnutrition Assessment: Malnutrition Status: Severe malnutrition Context: Chronic Illness Findings of the 6 clinical characteristics of malnutrition: Energy Intake: 75% or less estimated energy requirements for 1 month or longer Weight Loss: Greater than 10% over 6 months (14.5% wt loss from pt's reported previous dry weight of 205# prior to HF dx. 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 Pt here with acute exacerbation of HF with an EF of 30%. Per visitor, pt with dysgeusia contributing to pt's lack of appetite and interest in eating. Pt was given lemon mouth swabs which pt feels has been helping with his dry mouth and altered taste. Also suggest hard candy and putting lemon juice/citrus to foods to active his salivary glands. Pt reportedly would take only bites of food which has been ongoing for >1 month. During a previous admit to [facility], pt had trialed Ensure, but felt like it didn't help him. Visitor encouraged pt to try again; stated that pt had only tried drinking it twice during last admit, to be able to see any benefits from it. She would like for the pt to receive again since he is still eating poorly. Pt has noticed weight loss despite the fluid he has on board, so it is likely that pt's dry weight is significantly lower than his CBW. Pt weighed 175.2# per bed scale today. Per pt, he used to weigh up to 205# prior to HF diagnosis. Pt is convinced that this was a dry weight for him. Stated that pt used to weigh himself regulary even prior to HF dx. Pt did have a documented weight of 205# on 02/29/24, but this could have been an edematous weight at thattime. Pt weighed 186# a week later on 03/07/24 Estimated Daily Nutrient Needs: Energy Requirements Based On: Kcal/kg Weight Used for Energy Requirements: Current Weight for Energy Calculation (kg): 80 kg Total Energy Requirements (kcals/day): 5396-0256 kcals (25-30 kcals/kg) Weight Used for Protein Requirements: Current Weight in Kg Used for Protein Requirements: 80 kg Estimated Total Protein (g/day): 64-80g (0.8-1g/kg; monitor renal function) Estimated Daily Total Fluid (ml/day): per MD Nutrition Related Findings: +3 BLE edema; Cl 118, CO2 15, BUN 32, Cr 1.74, GFR 48.4, Ca++ 7.2, Albumin 3.1, Nt pro BNP 30,000, Hgb 16.4, Hct 52.1; Lasix Wound Type: None Current Nutrition Therapies: Adult diet Regular; Low Sodium (2 gm) Current Oral Intake Average Meal Intake: 76-100%, 1-25% Average Supplements Intake: None Ordered Anthropometric Measures: Height: 185.4 cm (6' 1) Current Body Weight: 79.5 kg (175 lb 3.2 oz) Weight Source: Bed Scale Admission Body Weight: 81.6 kg (180 lb) Usual Body Weight: 93 kg (205 lb) (205#- 02/29/24, 186#-03/07/24, 191#-04/28/24) % Weight Change (Calculated): -14.5 [place] Body Weight (lbs) (Calculated): 184 lbs [place] Body Weight (Kg) (Calculated): 84 kg % [place] Body Weight (Calculated): 95.2 % BMI (kg/m2) (Calculated): 23.1 Weight Adjustment For: No Adjustment BMI Categories: Normal Weight (BMI 18.5-24.9) Nutrition Diagnosis: Severe malnutrition related to inadequate protein-energy intake, early satiety, altered taste perception as evidenced by poor intake prior to admission, weight loss greater than or equal to 10% in 6 months, localized or generalized fluid accumulation Altered nutrition-related lab values related to cardiac dysfunction as evidenced by lab values Nutrition Interventions: Nutrition Education/Counseling: Education completed Coordination of Nutrition Care: Continue to monitor while inpatient Plan of Care discussed with: Pt and visitor Goals: Goals: PO intake 75% or greater, by next RD assessment, other (specify) Specify Other Goals: Labs and weights will trend towards baseline Nutrition Monitoring and Evaluation: Behavioral-Environmental Outcomes: None Identified Food/Nutrient Intake Outcomes: Diet Advancement/Tolerance, Food and Nutrient Intake, Supplement Intake Physical Signs/Symptoms Outcomes: Biochemical Data, GI Status, Nausea or Vomiting, Fluid Status or Edema, Nutrition Focused Physical Findings, Skin, Weight Discharge Planning: Continue current diet, Continue Oral Nutrition Supplement Dudley Oropeza RD Contact: *[phone] or via Secure Chat * Serg Celaya MD - 06/14/2024 9:58 AM EST Hospitalist Progress Note 06/14/2024 [id number]: Please page me ([phone]) for patient care issues. [phone]: Please page [facility] night Hospitalist for any issues. Subjective: Admit Date: 06/13/2024 PCP: No primary care provider on file. Room#: B2-243/B2-243 A Interval History: No overnight issues. Patient states he is breathing much better today. Currently he denies chest pain or sob. However he is a little short of breath with exertion only. States he put out a lot of urine since yesterday. No abdominal pain, nausea, vomiting. No fevers or chills. He was found to have DVT in both legs. He states he has never had blood clots before. He admits to beingimmobile and says he was not moving around much at all at home and was laying around. Adult diet Regular; Low Sodium (2 gm) @[id number]@ 24HR INTAKE/OUTPUT: Intake/Output Summary (Last 24 hours) at 06/14/2024 0958 Last data filed at 06/14/2024 0340 Gross per 24 hour Intake 206 ml Output 3675 ml Net -3469 ml Past Medical History: Past Medical History: Diagnosis Date CHF (congestive heart failure) (HCC) CKD (chronic kidney disease) Hypercholesteremia Hypertension LABS: CBC: Recent Labs 06/13/24 1459 WBC 8.7 RBC 5.05 HGB 16.4 HCT 52.1* MCV 103.2* RDW 14.6 PLT 217 BMP: Recent Labs 06/13/24 1459 06/13/24 2035 06/14/24 0342 NA 142 142 144 K 5.7* 4.9 3.6 CL 113* 114* 118* CO2 17* 18* 15* BUN 36* 34* 32* CREATININE 2.32* 2.03* 1.74* GLUCOSE 115* 104* 81 CALCIUM 8.7 8.6 7.2* ANIONGAP 12 10 11 LIVER PROFILE: Recent Labs 06/13/24 1459 AST 47* ALT 121* BILITOT 1.5* ALKPHOS 129 PROT 6.0* PT/INR: No results for input(s): PROTIME, INR in the last 72 hours. CARDIAC ENZYMES: No results for input(s): TROPONINI in the last 72 hours. Procalcitonin: No results found for: PROCAL COVID-19 PCR: No results for input(s): COVID19 in the last 72 hours. Objective: Vitals: BP 109/78 (BP Location: Left arm, Patient Position: Lying) Pulse 105 Temp 36.1 C (97 F)(Temporal) Resp 16 Ht 6' 1 (1.854 m) Wt 180 lb 5.4 oz (81.8 kg) SpO2 99% BMI 23.79 kg/m Pulse Ox: SpO2 Av.1 % Min: 93 % Max: 100 % Supplemental O2: General appearance: No apparent distress, appears stated age, HEENT: Eyes: No scleral icterus Oral: Tongue is semi-moist Cardiovascular: S1/S2 heard, RRR, 2+ edema of legs Respiratory: Clear to auscultation bilaterally Abdomen: Soft, non-tender, non-distended bowel sounds positive Musculoskeletal: No obvious deformities seen Skin: No visible rashes or lesions. Medications: carvedilol, 25 mg, Oral, BID WC cholecalciferol, 4,000 Units, Oral, Daily clopidogrel, 75 mg, Oral, Daily enoxaparin, 40 mg, SubCUTAneous, Daily furosemide, 60 mg, IntraVENous, BID hydrALAZINE, 25 mg, Oral, TID influenza, 0.5 mL, IntraMUSCular, Prior to discharge isosorbide dinitrate, 20 mg, Oral, TID pantoprazole, 40 mg, Oral, BID AC sodium bicarbonate, 1,300 mg, Oral, BID Assessment Acute, acute on chronic, unstable/uncontrolled chronic problems/diagnoses: # Acute on chronic heart failure with reduced ejection fraction exacerbation- Has known EF of 30%. Start IV Lasix twice a day, strict I's and O's and daily weights, consult cardiology to evaluate andmonitor on telemetry # Acute DVT of right popliteal, soleal and peroneal veins as well as the left peroneal veins - spoke with patient and will start Eliquis BID # Hyperkalemia-was given Kayexalate in the ER. Also has been getting Lasix as well due to CHF exacerbation. Now resolved. # Ongoing known upper abdominal pain present on admission - check CT abdomen (pending). Meanwhile, patient already has appointment to follow-up with GI outpatient. Trial of protonix bid as well. # SCHUYLER on CKD stage II due to cardiorenal syndrome. Baseline creatinine is 1.5- 1.7. Creatinine on admission was 2.32. Improving with lasix and now at baseline. # Metabolic acidosis likely due to chronic kidney disease - resumed home sodium bicarb tablets Stable chronic problems affecting care, new non-acute diagnoses: # Chronic hypertension # Hypercholesterolemia # Chronic heart failure with reduced ejection fraction # Nonischemic cardiomyopathy with known EF of 30% Plan -start eliquis bid (discussed with patient risk - agreeable to start). Stop lovenox subcutaneous. -continue IV lasix 60mg bid. -cardiology eval pending -continue strict I/Os and daily weight -continue to monitor on tele -check daily labs -CT abd pending Extended Emergency Contact Information Primary Emergency Contact: Indira Medina Mobile Relation: Sister Secondary Emergency Contact: Kaitlin Hicks Mobile Relation: Significant Other Serg Celaya MD Division of Hospitalist Medicine Inpatient Medical Services/[facility] PAGER: Epic chat documented in this [facility]12-23-2024 Nurse Note* Tamiko Live RN - 06/21/2024 1:[address] Mcguire and Gaby Marcano APRN from cardiology regarding 20 beat run of VT through message. ] [id number]* Care Coordination - Brittany Alston RN - 06/21/2024 12:07 PM EST Care Management Progress Note Chart reviewed. Pt continues on 2E for treatment of CHF. Renal following and states okay for DC pertheir POV as renal function has stabilized. Likely will DC today vs tomorrow. Per nursing rounds, pt is refusing Life Vest. No anticipated DC needs at this time Will continue to follow. Length of Stay (Days): 8 GMLOS: 5.4 [facility] [id number] Note* Care Coordination - Brittany Alston RN - 06/21/2024 12:07 PM EST Care Management Progress Note Chart reviewed. Pt continues on 2E for treatment of CHF. Renal following and states okay for DC pertheir POV as renal function has stabilized. Likely will DC today vs tomorrow. Per nursing rounds, pt is refusing Life Vest. No anticipated DC needs at this time Will continue to follow. Length of Stay (Days): 8 GMLOS: 5.4 [facility] [id number] Miscellaneous Notes* Care Coordination - Brittany Alston RN - 06/21/2024 12:07 PM EST Care Management Progress Note Chart reviewed. Pt continues on 2E for treatment of CHF. Renal following and states okay for DC pertheir POV as renal function has stabilized. Likely will DC today vs tomorrow. Per nursing rounds, pt is refusing Life Vest. No anticipated DC needs at this time Will continue to follow. Length of Stay (Days): 8 GMLOS: 5.4 * Care Plan - King Jackson RN - 06/20/2024 5:46 PM EST Problem: Problem Interventions Goal: Promote nutritional intake Outcome: Progressing Problem: Knowledge Deficit Goal: Patient/family/caregiver demonstrates understanding of disease process, treatment plan, medications, and discharge instructions Outcome: Progressing Problem: Potential for Compromised Skin Integrity Goal: Nutritional status is improving Outcome: Progressing * Care Plan - King Jackson RN - 06/19/2024 2:31 PM EST Problem: Potential for Compromised Skin Integrity Goal: Nutritional status is improving Outcome: Progressing Problem: Problem Interventions Goal: Dietary Supplements Outcome: Progressing Problem: Knowledge Deficit Goal: Patient/family/caregiver demonstrates understanding of disease process, treatment plan, medications, and discharge instructions Outcome: Progressing * Care Plan - Kae Vela RN - 06/18/2024 1:44 AM EST Problem: Problem Interventions Goal: Promote nutritional intake Outcome: Not Progressing * Pre-Sedation Documentation - Akilah Diaz MD - 06/17/2024 9:57 AM EST Sedation Plan ASA class 3 - patient with severe systemic disease Mallampati class: II - soft palate, uvula, fauces visible. Sedation plan: local anesthesia and minimal sedation Risks, benefits, and alternatives discussed with patient. Immediate reassessment prior to sedation: Patient's status reviewed and vital signs assessed; acceptable to perform procedure and proceed to administer sedation as planned. * Significant Event - Gaby Marcano APRN - WHITING MACHINE OPERATOR - 06/17/2024 8:43 AM EST Spoke with Marcus Delvalle RN from labor relations officer. Pt refused RHC/LHC yesterday, but was agreeable to do procedure today. Spoke with patient this AM, he is still agreeable to procedure. He is NPO. He did refuse labs this morning, but has labs from the day before, and has not received IV Lasix since 06/15. Unable to locate prior cath orders, and new order set for RHC/LHC placed this morning, including aspirin and IV Fluids per Poseidon protocol. Reviewed with his nurse, as well as Marcus Delvalle RN. No further questions at this time. Will await cath results. * Care Plan - Kae Vela RN - 06/16/2024 1:29 AM EST Problem: Knowledge Deficit Goal: Patient/family/caregiver demonstrates understanding of disease process, treatment plan, medications, and discharge instructions Outcome: Not Progressing Problem: Potential for Compromised Skin Integrity Goal: Skin Integrity is Maintained or Improved Outcome: Not Progressing Goal: Nutritional status is improving Outcome: Not Progressing Problem: Urinary Incontinence Goal: Perineal skin integrity is maintained or improved Outcome: Not Progressing Problem: Problem Interventions Goal: Dietary Supplements Outcome: Not Progressing Goal: Promote nutritional intake Outcome: Not Progressing * Care Coordination - Brittany Alston RN - 06/15/2024 1:20 PM EST Care Management Progress Note Pt has been verified as SELF PAY by financial counselor's. If pt requires Eliquis and /or other meds at DC then need to call and send scripts to [facility] prior to DC. RN taking care of pt updatedthat will need to get DC meds from [facility] prior to DC. Length of Stay (Days): 2 GMLOS: 3.9 * Care Plan - Emerald Allan RN - 06/15/2024 5:42 AM EST Problem: Knowledge Deficit Goal: Patient/family/caregiver demonstrates understanding of disease process, treatment plan, medications, and discharge instructions Outcome: Progressing Problem: Potential for Compromised Skin Integrity Goal: Skin Integrity is Maintained or Improved Outcome: Progressing Problem: Urinary Incontinence Goal: Perineal skin integrity is maintained or improved Outcome: Progressing * Care Coordination - MICHAEL Kramer - 06/14/2024 2:33 PM EST JOZEF coverage for today. Chart reviewed. Pt discussed in rounds today. Pt is self pay, but has indicates that he will have insurance starting in Jun 2024. Per old chart on 04/28/2024 JOZEF was able to communicated with Christian from [employer]. Financial screening completed with patient this afternoon. Patient was over income for Medicaid program. [employer] referred patient to Hospital Care Assurance Program; application completed and submitted. HCAP will assist with current hospitalization and other [facility] encounters for up to 3 months if approved. HCAP will not assist with home going prescriptions. SW will follow to assist as needed. * Care Plan - Shabana Drew RN - 06/13/2024 9:41 PM EST Problem: Knowledge Deficit Goal: Patient/family/caregiver demonstrates understanding of disease process, treatment plan, medications, and discharge instructions Outcome: Progressing Problem: Potential for Compromised Skin Integrity Goal: Skin Integrity is Maintained or Improved Outcome: Progressing Goal: Nutritional status is improving Outcome: Progressing Problem: Urinary Incontinence Goal: Perineal skin integrity is maintained or improved Outcome: Progressing documented in this encounterSD[facility] [id number] Plan of care note* Care Plan - King Jackson RN - 06/20/2024 5:46 PM EST Problem: Problem Interventions Goal: Promote nutritional intake Outcome: Progressing Problem: Knowledge Deficit Goal: Patient/family/caregiver demonstrates understanding of disease process, treatment plan, medications, and discharge instructions Outcome: Progressing Problem: Potential for Compromised Skin Integrity Goal: Nutritional status is improving Outcome: Progressing [facility] [id number] Consult note* Verona Shah APRN - VIKKI - 06/20/2024 7:42 AM ESTAssociated Order(s): IP CONSULT TO PALLIATIVE CARE Images from the original note were not included. Palliative Care Initial Consult Chief Complaint: Carlo Medina is a 44 y.o. male with chief complaint of increased work of breathing. Palliative Care will follow peripherally, please contact on-call provider for urgent needs Assessment/Plan HFrEF, CHF exacerbation - due to non-adherence to medications - ECHO 06/15/24: Left Ventricle: Left ventricle is dilated. Mildly increased wall thickness. Severely reduced left ventricular systolic function. EF by 2D Simpsons Biplane is 20%. Global longitudinalstrain is reduced with a value of - 5.0%. Severe global hypokinesis present. Right Ventricle: Right ventricle is dilated. Moderately reduced systolic function. Aortic Valve: Mild (1+) regurgitation. Mitral Valve: Moderate (2+) regurgitation with an eccentrically directed jet and and may underestimate severity. Tricuspid Valve: Moderately elevated RVSP. RVSP is 46 mmHg. Pericardium: Small (<1 cm) pericardial effusion present. Findings do not support cardiac tamponade. IVC/Hepatic Veins: IVC diameter is dilated and decreases less than 50% during inspiration; therefore the estimated right atrial pressure is elevated (~15 mmHg). Slow blood flow, echogenic. - LHC and RHC 06/17/24 - consulted by cardiology team for goals of care as wanting some treatments but refusing appropriate care such as transfer to [facility] - introduced myself and service, why consulted, attempted to get his understanding of severity of heart failure, tells me he has talked to many providers about this today, asked him if any of the providers talked to him about hospice then? This has not been brought up. Education that with poor heart function, need for interventions such as AICD/life vest, medication adherence, if this is lacked or not wanted to pursue then hospice is a way to endure his comfort at EOL. Tells me I'm not ready for hospice education that his low EF actually does qualify him for such services. Tells me he needsto think about this and talk with his girlfriend about this as well. - 5th admission since January 2024 - has appt with Dr Zhang 07/01/24 at 1045AM Shortness of breath - Denies at this time - on room air B DVT - dx 06/14/24 - per primary: apixaban CKD - nephrology following - intermittently refusing labs Palliative Care Encounter -full code - without LW or HCPOA, has adult dtr but not really in contact with her, education of [place] should he not be able to make medical decisions, states he would want GF to make medical decisions, will place social staff worker consult to complete this hopefully before dc - consulted for goals of care - Introduced the palliative care service to the patient and/or family. Discussed that we see patients with serious illnesses. Our role is to assist with pain and symptom management and to support thepatient and family to promote quality of life. We at times also assist in discussions regarding goals of care and clinical decisions. - once discussed hospice did not want to talk with me any further. Will be respectful of this today, I worry he not not fully understanding the severity of his medical situation. Would be good candidate for outpatient palliative care team for ongoing discussions after sees Dr Zhang next week, will route this note to him. - will continue to follow for ongoing monitoring of progression of Dyspnea as well as for appropriateness for hospice care due to CHF - will continue to evaluate test results related to CHF, medication effectiveness for Dyspnea, response to treatment of CHF - follow Total of 60 minutes spent on this encounter including Chart review, Patient visit and exam, Documentation in EHR, Care coordination, Communicating with primary attending or other consultants, and Counseling and educating patient/family/caregiver. Discharge planning: Ready for discharge from Palliative Care perspective, no follow-up needed Patient meets criteria for general inpatient hospice care including the following: N/A - PalliativeCare Patient Referrals to: none Discussed patient and the plan of care with the other interdisciplinary team (IDT) members of Palliative Care Team, and with Primary Attending, Patient, and Floor Nurse Insert attestation statement here if applicable (.disupervision) or (.npattest) Subjective: Hospital days prior to consult: 6 Trauma Consult: no. (If yes, please add .traumapall nelda for tracking purposes.) Subjective/Events Carlo Medina is a 44 y.o. male living at home, appears first hospitalizations were this past summer, now with 5th admission to hospital since January. PMHx includes; HFrEF due to non-ischemic CM, CKD, HTN, HLD, returned to [facility] with BLE edema and increased work of breathing, admitted for another CHF exacerbation, appears not taking medications as prescribed at home, attempted to look at dispense report for community pharmacy but not found. Hospital stay further complicated by his refusal of interventions, lab work, did finally agree to R/L HC the other day. [facility]ICD[facility]life vest[facility], prompting palliative care consult for goals of care Patient awake in bed in NAD, watching browns/bengals game. He is without pain, CP, abdominal pain, breathing not labored, no nausea, vomiting, last BM 06/19/24, appetite good Pain Assessment (If Pain Scale >0) Denies pain Advance Care Planning Advanced Care Planning Conversation Pertinent Diagnosis/es: HFrEF The patient and/or surrogate consented to a voluntary Advance Care Planning conversation. Carlo Medina retains capacity for medical decision-making Individuals present included: Patient. Summary of the conversation: as above Outcome of the conversation: Decision to remain full code and continue all aggressive care Advance Directives were explained including HCPOA, Living Will and/or DNR. This is the first significant conversation I have had with this patient about advanced care planning. I spent 10 minutes providing separately identifiable ACP services with the patient and/or surrogatedecision maker in a voluntary conversation discussing the patient's goals, values, and preferences as detailed in the note above. Verona Shah, CURRICULUM DIRECTOR - WHITING MACHINE OPERATOR Time-based code 23252 for 16-45 minutes. Add-on code 27307 at 46 minutes and each additional 30 minutes. Goals of care:Continue Current Management Functional Assessment: PPS: 90% Advance Directives: Full Code Surrogate: Significant Other Prognosis: [id number] than one year--if does not pursue cardiology recommendations for care Spiritual assessment: No spiritual distress identified Bereavement and grief: Grief Issues Not Identified Past Medical History: Diagnosis Date CHF (congestive heart failure) (HCC) CKD (chronic kidney disease) Hypercholesteremia Hypertension Past Surgical History: Procedure Laterality Date CARDIAC CATHETERIZATION N/A 06/17/2024 Performed by Akilah Diaz MD at [facility] 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 Family History Problem Relation Name Age of Onset Heart disease Father Heart disease Brother Unable to obtain family history due to N/A- family history available No Known Allergies Review of Systems ROS: See palliative care ROS/ESAS below; All other systems were reviewed and are negative. Selma Symptom Assessment Score Selma Score Pain Score 0 Tiredness Score 0 Nausea Score 0 Depression Score 0 Anxiety Score 0 Drowsiness Score 0 Anorexia Score (0= eating well, 10= not eating) 0 Wellbeing Score (10= worst sense of well-being) 0 Constipation 0 Dyspnea Score (0= no shortness of breath) 0 FLACC Scale (For Pain Assessment of the Non-Verbal Patient) Patient is verbal Assessed by: patient and provider. Social history: [place] status: no Marital status: single Living status: with partner / significant other Work history: unknown Family Meeting: Participants: patient Family meeting was held to discuss:Diagnosis and Prognosis, Goals of Care, and started discussions of hospice appropriateness Objective: Physical Exam BP 112/83 (BP Location: Left arm, Patient Position: Lying) Pulse 105 Temp 36.5 C (97.7 F) (Temporal) Resp 18 Ht 6' 1 (1.854 m) Wt 168 lb 6.4 oz (76.4 kg) SpO2 100% BMI 22.22 kg/m Physical Exam Vitals and nursing note reviewed. HENT: Head: Normocephalic and atraumatic. Mouth/Throat: Mouth: Mucous membranes are moist. Eyes: General: Right eye: No discharge. Left eye: No discharge. Pulmonary: Effort: Pulmonary effort is normal. Genitourinary: Comments: Continent Neurological: General: No focal deficit present. Mental Status: He is alert and oriented to person, place, and time. Psychiatric: Mood and Affect: Mood normal. Behavior: Behavior normal. Current Medications: Inpatient medications reviewed: yes Home medications reviewed: yes OARRS Reviewed: Yes-no reportable medications 24 Hour PRN Meds: no PRN medications in 24 hours Results/Verification of Data Review Objective data reviewed (be specific which labs, imaging reports with dates reviewed): MAR/vitals/labs reviewed 06/20/24 As above Data in Support of Terminal Illness: Is patient hospice appropriate? Yes - Carlo Medina is a 44 y.o. male who is hospice appropriate with an expected prognosis of 6 months or less due to the following: Primary Hospice Diagnosis (must include ICD-10 code) HFrEF (I50.2), Contributing Diagnoses CKD, DVT, HTN, HLD. Diagnoses unrelated to terminal condition: none. Narrative: Carlo Medina is a 44 y.o. male living at home, appears first hospitalizations were this past summer, now with 5th admission to hospital since January. PMHx includes; HFrEF due to non-ischemic CM, CKD, HTN, HLD, returned to [facility] with BLE edema and increased work of breathing, admitted for another CHF exacerbation, appears not taking medications as prescribed at home, attempted to look at dispense report for community pharmacy but not found. Hospital stay further complicated by his refusal of interventions, lab work, did finally agree to R/L HC the other day. Needs AICD/life vest, [facility], prompting palliative care consult for goals of care. If does not adhere to cardiology recommendations for life-saving and prolonging therapies, life expectancy limited to 6 months or less should illness run it's natural course Transition Note Initiated: yes. Cosigned by Hortencia Hayward MD at 06/20/2024 4:55 PM EST [employer] Work Phone: [phone] Consult note* THOMAS Melvin CNP - 06/20/2024 7:42 AM ESTAssociated Order(s): IP CONSULT TO PALLIATIVE CARE Images from the original note were not included. Palliative Care Initial Consult Chief Complaint: Carlo Medina is a 44 y.o. male with chief complaint of increased work of breathing. Palliative Care will follow peripherally, please contact on-call provider for urgent needs Assessment/Plan HFrEF, CHF exacerbation - due to non-adherence to medications - ECHO 06/15/24: Left Ventricle: Left ventricle is dilated. Mildly increased wall thickness. Severely reduced left ventricular systolic function. EF by 2D Simpsons Biplane is 20%. Global longitudinalstrain is reduced with a value of - 5.0%. Severe global hypokinesis present. Right Ventricle: Right ventricle is dilated. Moderately reduced systolic function. Aortic Valve: Mild (1+) regurgitation. Mitral Valve: Moderate (2+) regurgitation with an eccentrically directed jet and and may underestimate severity. Tricuspid Valve: Moderately elevated RVSP. RVSP is 46 mmHg. Pericardium: Small (<1 cm) pericardial effusion present. Findings do not support cardiac tamponade. IVC/Hepatic Veins: IVC diameter is dilated and decreases less than 50% during inspiration; therefore the estimated right atrial pressure is elevated (~15 mmHg). Slow blood flow, echogenic. - LHC and RHC 06/17/24 - consulted by cardiology team for goals of care as wanting some treatments but refusing appropriate care such as transfer to [facility] - introduced myself and service, why consulted, attempted to get his understanding of severity of heart failure, tells me he has talked to many providers about this today, asked him if any of the providers talked to him about hospice then? This has not been brought up. Education that with poor heart function, need for interventions such as AICD/life vest, medication adherence, if this is lacked or not wanted to pursue then hospice is a way to endure his comfort at EOL. Tells me I'm not ready for hospice education that his low EF actually does qualify him for such services. Tells me he needsto think about this and talk with his girlfriend about this as well. - 5th admission since January 2024 - has appt with Dr Zhang 07/01/24 at 1045AM Shortness of breath - Denies at this time - on room air B DVT - dx 06/14/24 - per primary: apixaban CKD - nephrology following - intermittently refusing labs Palliative Care Encounter -full code - without LW or HCPOA, has adult dtr but not really in contact with her, education of [place] law should he not be able to make medical decisions, states he would want GF to make medical decisions, will place social staff worker consult to complete this hopefully before dc - consulted for goals of care - Introduced the palliative care service to the patient and/or family. Discussed that we see patients with serious illnesses. Our role is to assist with pain and symptom management and to support thepatient and family to promote quality of life. We at times also assist in discussions regarding goals of care and clinical decisions. - once discussed hospice did not want to talk with me any further. Will be respectful of this today, I worry he not not fully understanding the severity of his medical situation. Would be good candidate for outpatient palliative care team for ongoing discussions after sees Dr Zhang next week, will route this note to him. - will continue to follow for ongoing monitoring of progression of Dyspnea as well as for appropriateness for hospice care due to CHF - will continue to evaluate test results related to CHF, medication effectiveness for Dyspnea, response to treatment of CHF - follow Total of 60 minutes spent on this encounter including Chart review, Patient visit and exam, Documentation in EHR, Care coordination, Communicating with primary attending or other consultants, and Counseling and educating patient/family/caregiver. Discharge planning: Ready for discharge from Palliative Care perspective, no follow-up needed Patient meets criteria for general inpatient hospice care including the following: N/A - PalliativeCare Patient Referrals to: none Discussed patient and the plan of care with the other interdisciplinary team (IDT) members of Palliative Care Team, and with Primary Attending, Patient, and Floor Nurse Insert attestation statement here if applicable (.disupervision) or (.npattest) Subjective: Hospital days prior to consult: 6 Trauma Consult: no. (If yes, please add .traumapall dotphrase for tracking purposes.) Subjective/Events Carlo Medina is a 44 y.o. male living at home, appears first hospitalizations were this past summer, now with 5th admission to hospital since January. PMHx includes; HFrEF due to non-ischemic CM, CKD, HTN, HLD, returned to [facility] with BLE edema and increased work of breathing, admitted for another CHF exacerbation, appears not taking medications as prescribed at home, attempted to look at dispense report for community pharmacy but not found. Hospital stay further complicated by his refusal of interventions, lab work, did finally agree to R/L HC the other day. [facility]ICD[facility]life vest[facility], prompting palliative care consult for goals of care Patient awake in bed in NAD, watching browns/[employer] [place] game. He is without pain, CP, abdominal pain, breathing not labored, no nausea, vomiting, last BM 06/19/24, appetite good Pain Assessment (If Pain Scale >0) Denies pain Advance Care Planning Advanced Care Planning Conversation Pertinent Diagnosis/es: HFrEF The patient and/or surrogate consented to a voluntary Advance Care Planning conversation. Carlo Medina retains capacity for medical decision-making Individuals present included: Patient. Summary of the conversation: as above Outcome of the conversation: Decision to remain full code and continue all aggressive care Advance Directives were explained including HCPOA, Living Will and/or DNR. This is the first significant conversation I have had with this patient about advanced care planning. I spent 10 minutes providing separately identifiable ACP services with the patient and/or surrogatedecision maker in a voluntary conversation discussing the patient's goals, values, and preferences as detailed in the note above. Verona Shah, CURRICULUM DIRECTOR - WHITING MACHINE OPERATOR Time-based code 23162 for 16-45 minutes. Add-on code 46708 at 46 minutes and each additional 30 minutes. Goals of care:Continue Current Management Functional Assessment: PPS: 90% Advance Directives: Full Code Surrogate: Significant Other Prognosis: [id number] than one year--if does not pursue cardiology recommendations for care Spiritual assessment: No spiritual distress identified Bereavement and grief: Grief Issues Not Identified Past Medical History: Diagnosis Date CHF (congestive heart failure) (HCC) CKD (chronic kidney disease) Hypercholesteremia Hypertension Past Surgical History: Procedure Laterality Date CARDIAC CATHETERIZATION N/A 06/17/2024 Performed by Akilah Diaz MD at [facility] 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 Family History Problem Relation Name Age of Onset Heart disease Father Heart disease Brother Unable to obtain family history due to N/A- family history available No Known Allergies Review of Systems ROS: See palliative care ROS/ESAS below; All other systems were reviewed and are negative. Selma Symptom Assessment Score Selma Score Pain Score 0 Tiredness Score 0 Nausea Score 0 Depression Score 0 Anxiety Score 0 Drowsiness Score 0 Anorexia Score (0= eating well, 10= not eating) 0 Wellbeing Score (10= worst sense of well-being) 0 Constipation 0 Dyspnea Score (0= no shortness of breath) 0 FLACC Scale (For Pain Assessment of the Non-Verbal Patient) Patient is verbal Assessed by: patient and provider. Social history: [place] status: no Marital status: single Living status: with partner / significant other Work history: unknown Family Meeting: Participants: patient Family meeting was held to discuss:Diagnosis and Prognosis, Goals of Care, and started discussions of hospice appropriateness Objective: Physical Exam BP 112/83 (BP Location: Left arm, Patient Position: Lying) Pulse 105 Temp 36.5 C (97.7 F) (Temporal) Resp 18 Ht 6' 1 (1.854 m) Wt 168 lb 6.4 oz (76.4 kg) SpO2 100% BMI 22.22 kg/m Physical Exam Vitals and nursing note reviewed. HENT: Head: Normocephalic and atraumatic. Mouth/Throat: Mouth: Mucous membranes are moist. Eyes: General: Right eye: No discharge. Left eye: No discharge. Pulmonary: Effort: Pulmonary effort is normal. Genitourinary: Comments: Continent Neurological: General: No focal deficit present. Mental Status: He is alert and oriented to person, place, and time. Psychiatric: Mood and Affect: Mood normal. Behavior: Behavior normal. Current Medications: Inpatient medications reviewed: yes Home medications reviewed: yes OARRS Reviewed: Yes-no reportable medications 24 Hour PRN Meds: no PRN medications in 24 hours Results/Verification of Data Review Objective data reviewed (be specific which labs, imaging reports with dates reviewed): MAR/vitals/labs reviewed 06/20/24 As above Data in Support of Terminal Illness: Is patient hospice appropriate? Yes - Carlo Medina is a 44 y.o. male who is hospice appropriate with an expected prognosis of 6 months or less due to the following: Primary Hospice Diagnosis (must include ICD-10 code) HFrEF (I50.2), Contributing Diagnoses CKD, DVT, HTN, HLD. Diagnoses unrelated to terminal condition: none. Narrative: Carlo Medina is a 44 y.o. male living at home, appears first hospitalizations were this past summer, now with 5th admission to hospital since January. PMHx includes; HFrEF due to non-ischemic CM, CKD, HTN, HLD, returned to [facility] with BLE edema and increased work of breathing, admitted for another CHF exacerbation, appears not taking medications as prescribed at home, attempted to look at dispense report for community pharmacy but not found. Hospital stay further complicated by his refusal of interventions, lab work, did finally agree to R/L HC the other day. Needs AICD/life vest, transfer to [facility] but refusing this, prompting palliative care consult for goals of care. If does not adhere to cardiology recommendations for life-saving and prolonging therapies, life expectancy limited to 6 months or less should illness run it's natural course Transition Note Initiated: yes. Cosigned by Hortencia Hayward MD at 06/20/2024 4:55 PM EST * Maritza VarelaTHOMAS Davis CNP - 06/15/2024 9:44 AM ESTAssociated Order(s): IP CONSULT TO NEPHROLOGY [facility] Consult Note Reason for Consult/Chief Complaint: SCHUYLER/CKD with CHF exacerbation Consulting MD: Dr. Sergei Mcguire [facility] Outpatient Electrical Engineer: N/A History of Present Illness: Carlo is a 44 y.o. male with a past medical history of CKD and CHF who presented to the emergencydepartment for the evaluation of abdominal pain. Also increased leg swelling in the last 2 weeks and shortness of breath as well. As for the abdominal pain, this is not new and has been ongoing. He was seen by surgery a month ago in the hospital and had MRI done of his gallbladder as at that time they thought it might be the gallbladder. Meanwhile outpatient, he already has an appointment to see a GI specialist for this as well. Him and his significant other denies that there is any relation with the pain with eating food. The pain is mainly in the upper mid abdomen. He has never had a CAT scan of his abdomen done yet and also never been scoped. He does look completely comfortable laying inbed in no acute distress. There is no grimacing and no guarding either. He is smiling and able to give a history fine. Meanwhile he is also found to have a BNP of 30,000 along with increased leg swelling in the last 2 weeks. He admits to having shortness of breath as well. He was placed on torsemide a month ago but he told me no way he is taking that. He has a history of noncompliance he with hisdiuretics as well. Otherwise, currently denies any chest pain. No nausea or vomiting. No fevers or chills. Nephrology is asked to see the patient for SCHUYLER/CKD in the setting of CHF exacerbation. Scr is currently 2.41, previously 1.74 and has a baseline of 1.5- 1.7. Was receiving lasix 60 mg BID and received5 doses over the last 48 hours. No known use of nsaids. PO intake has been fair even in the settingof his c/o stomach pain. Denies N/V/D. Refusing his PPI. UOP is sufficient. No relative hypotensionnoted. No large fluctuations in hemodynamics noted. No evidence of KELSIE. Past Medical History: Past Medical History: Diagnosis Date CHF (congestive heart failure) (HCC) CKD (chronic kidney disease) Hypercholesteremia Hypertension Past Surgical History: History reviewed. No pertinent surgical history. Family History: Family History Problem Relation Name Age of Onset Heart disease Father Heart disease Brother Social History: Social History Tobacco Use Smoking status: Never Passive exposure: Never Smokeless tobacco: Never Vaping Use Vaping status: Never Used Substance Use Topics Alcohol use: Never Drug use: Never Medications: apixaban, 10 mg, Oral, BID Followed by [START ON 06/21/2024] apixaban, 5 mg, Oral, BID carvedilol, 25 mg, Oral, BID WC cholecalciferol, 4,000 Units, Oral, Daily clopidogrel, 75 mg, Oral, Daily hydrALAZINE, 25 mg, Oral, TID influenza, 0.5 mL, IntraMUSCular, Prior to discharge isosorbide dinitrate, 20 mg, Oral, TID pantoprazole, 40 mg, Oral, BID AC sodium bicarbonate, 1,300 mg, Oral, BID Allergies: Reviewed Review of Systems: Pertinent positives stated above in HPI. All other systems were reviewed and were negative. Physical exam: Constitutional: Vitals: 06/14/24 2339 06/15/24 0354 06/15/24 0608 06/15/24 0714 BP: 116/84 132/97 120/90 BP Location: Patient Position: Pulse: 53 112 57 Resp: 18 18 16 Temp: 36.2 C (97.2 F) 36.9 C (98.5 F) 36.3 C (97.3 F) TempSrc: Temporal Temporal Temporal SpO2: 100% 100% 100% Weight: 78.9 kg (173 lb 15.1 oz) Height: 24HR BLOOD PRESSURE RANGE: Systolic (24hrs), Av , Min:103 , Max:132 ; Diastolic (24hrs), Av, Min:77, Max:97 24HR INTAKE/OUTPUT: Intake/Output Summary (Last 24 hours) at 06/15/2024 0944 Last data filed at 06/15/2024 0523 Gross per 24 hour Intake 200 ml Output 3100 ml Net -2900 ml Physical Exam: Appearance: NAD, awake, alert, cooperative to exam Eyes: PERRLA, clear sclera ENT: hearing normal, no oral thrush, no erythema or exudate on hard or soft palate, tongue normal, moist mucus membranes Neck: supple, slight JVD, no thyromegaly Respiratory: breathing unlabored, lungs CTA B/L anteriorly without w/r/r Cardiovascular: heart RRR without m/g/r, pedal pulses palpable Gastrointestinal: abdomen soft, non-tender, non-distended, normoactive bowel sounds. No masses or hernia. Musculoskeletal: normal muscle strength and tone, no edema of BLE Skin: warm and dry, no rash or wounds Neurologic: symmetric strength and sensation Psychiatric: alert and oriented to person/place/time, judgement and insight normal, memory intact, normal mood and range of affect Data: CBC: Recent Labs 06/13/24 1459 WBC 8.7 RBC 5.05 HGB 16.4 HCT 52.1* MCV 103.2* RDW 14.6 PLT 217 BMP: Recent Labs 06/13/24 2035 06/14/24 0342 06/15/24 0414 NA 142 144 144 K 4.9 3.6 4.1 CL 114* 118* 103 CO2 18* 15* 26 BUN 34* 32* 37* CREATININE 2.03* 1.74* 2.41* BNP: Recent Labs 06/13/24 1459 BNP 30,000* UA: pending Imaging: Exam Date/Time: 06/14/2024 09:41 Procedure: CT ABDOMEN PELVIS WO IV CONTRAST FINDINGS: This examination is limited for the evaluation of solid organs and vascular structures due to the lack of intravenous contrast. Lower thorax: Cardiomegaly. Otherwise unremarkable. Stomach: Unremarkable. Liver: Normal size and contours. Normal hepatic parenchyma. No focal lesion. Biliary tree: Unremarkable gallbladder by CT. No biliary dilatation Spleen: Normal Adrenals: Normal. Pancreas: Normal. Right kidney and collecting system: No contour abnormality or focal renal lesion identified. No calculi, hydronephrosis or ureteral dilatation. Left kidney and collecting system: No contour abnormality or focal renal lesion identified. No calculi, hydronephrosis or ureteral dilatation. Free air or fluid: Small amount of nonspecific free fluid in the dependent pelvis. No free air. Mesenteric/retroperitoneal: No adenopathy or inflammation. Aorta: Normal caliber. Bowel: Normal appendix. No inflammatory change or bowel dilatation is noted. Bladder: No calculi or filling defects. Urinary bladder is physiologically distended. Inguinal: No lymphadenopathy. Abdominal wall/soft tissues: Fat containing umbilical hernia. Osseous structures: No osseous abnormalities. IMPRESSION: 1. Small amount of nonspecific free fluid in the dependent pelvis. 2. Cardiomegaly. Assessment: SCHUYLER/ATN, possibly 2/2 volume depletion from over-diuresis vs CRS (N17.0) Acute on chronic HFrEF exacerbation (I50.23) Severe protein calorie malnutrition (E43) Noncompliance with medication (Z91.1) Abdominal pain CKD3b Acute BLE DVTs Plan: -Scr currently 2.41, bl~1.5-1.7, non-oliguric, BP stable -Hold diuresis for now -Ok for prn diuresis for s/s of acute respiratory distress -Await repeat echo results -Needs daily standing weights and strict I&Os -May benefit from dietitian consult -SCHUYLER workup ordered, noted urine lytes will may be skewed from diuresis use -CT abdomen reviewed, no acute renal process identified -Bladder scan x1 for pvr, place agustin for >350cc -Avoid nephrotoxins and contrast dye -Dose all meds per current eGFR -Anticoagulation per primary team -Needs to be compliant with all care on a regular basis to be successful and prevent future hospitalizations -Complex MDM -All other care per primary team -We will follow closely with you Thank you for the consult and the opportunity to participate in the care of this patient. Please donot hesitate to call with any questions or concerns. Maritza Linn APRN, WHITING MACHINE OPERATOR [facility] office Cosigned by Anand Mccullough MD at 06/15/2024 2:17 PM EST Associated attestation - Anand Mccullough MD - 06/15/2024 2:17 PM EST Seen and examined. Agree with above A and p. Variances as noted below. Cr spiked likely from diuresis/CRS Hold diuresis. Reviewed Echo report , EF further reduced to 20%, also with RV systolic HF. This could explain further deterioration of renal function from prior baseline. Await peaking of Cr. PVR to r/o urinary retention. * Angel Luis Morales MD - 06/14/2024 9:04 AM ESTAssociated Order(s): IP CONSULT TO CARDIOLOGY [facility] Cardiology /Electrophysiology Consult Note Reason for Consult/Chief Complaint: Dyspnea, edema Consulting provider: Andrew Established radar engineer: Leatha History of Present Illness: Carlo Medina is a 44 y.o. male with a history of heart failure reduced EF diagnosed February 2024, likely due to nonischemic cardiomyopathy, EF 30% with known moderate mitral regurgitation, chronic kidney disease, who was just in the hospital from 05/28-06/01 and comes back now due to worsening abdominal pain and edema with dyspnea. He was diagnosed with possible gallbladder disease at his lastadmission but wanted to leave before surgery could complete the work up. He says that last week he was so tired he had difficulty getting out of bed and he had to miss work all week long. He was seenin our office on June 08, and at that time he was felt to be volume overloaded and his Lasix was made daily instead of every other day. Besides feeling weak, he also was noted abdominal pain which is intermittent, but fairly severe when it occurs. Interestingly, this pain is worse when he does not eat and improves when he does. He has had some elevation of liver enzymes and scans have suggested possible cholecystitis and he was waiting for an outpatient HIDA scan. He denies associated nausea, vomiting, diarrhea, fevers, chills. He denies other symptoms of congestive heart failure such as PND, orthopnea but he does have bilateral lower extremity edema. He denies chest pain, palpitations or syncope. He came into the ER mostly because of his abdominal pain. He was treated with IV Lasix and IV morphine and today he says he feels better and has more energy and less abdominal pain. Lower extremity duplexes this morning revealed he has bilateral deep venous thrombosis. CT scan of his abdomen was essentially negative. Assessment/Plan HF NYHA Class [] I [] II [x] III [] IV []Unable to assess Heart failure with reduced ejection fraction: This was diagnosed initially in February and was thought to be hypertension related. The plan is eventually to do an outpatient ischemia workup, but that has not been done today because he is had issues with insurance as well as recurrent hospital admissions. Currently, I am concerned that his abdominal pain could be a manifestation of decreased cardiac output although he does not have a lot of other symptoms of this and he does not appear to be markedly volume overloaded currently. He is unable to tolerate LUCRECIA inhibitors, ARB's or spironolactonedue to his renal function and non-anion gap acidosis. His blood pressure seems to be pretty well-managed with his current regimen of carvedilol, hydralazine and isosorbide. Continue current doses of carvedilol, hydralazine and isosorbide Will check a follow-up echo today to see if his LV function has improved at all in the past 3 months and to see what his filling pressures look like Based on his clinical status, he be a good candidate I think for right and left heart catheterization at some point to be sure his abdominal symptoms are not due to low cardiac output For now, continue furosemide 60 mg IV twice daily Monitor I's and O's, daily weight, daily BMP Recurrent abdominal pain: This pain has been going on for over a month, and does not sound like classic biliary pain or decreased cardiac output given the fact that the pain is worse when he has not eaten and improves when he does. Also he does not have nausea, vomiting or anorexia which would occur with patients who have low cardiac output. His CT scan done earlier today was normal and did not show significant amount of ascites, nor did it suggest an active biliary process. Echocardiogram as above to assess filling pressures, cardiac output Consider getting HIDA scan which was suggested last admission by surgery Consider right heart cath to make sure his cardiac output is adequate and not contributing to this pain Chronic kidney disease: He says he really did have kidney disease until he was diagnosed with heartfailure, although his labs dating back to January have shown a creatinine of 1.5 or greater and we do not have anything older than that. He admits that he was told he had hypertension many years ago and has not had it treated which could be the etiology of both his heart and kidney disease. Also, inthe past month and a half, he has developed a non-anion gap acidosis of uncertain etiology. He has been put on sodium bicarbonate tablets which may help the acidosis, but could aggravate his heart failure. Consider nephrology reassessment Monitor renal function closely with diuresis Avoid nephrotoxins Acute deep venous thrombosis: This was just discovered this admission, may be related to his frequent hospitalizations and decreased mobility last week because he felt so weak. He has been started onEliquis by the primary service. Medications: carvedilol, 25 mg, Oral, BID WC cholecalciferol, 4,000 Units, Oral, Daily clopidogrel, 75 mg, Oral, Daily enoxaparin, 40 mg, SubCUTAneous, Daily furosemide, 60 mg, IntraVENous, BID hydrALAZINE, 25 mg, Oral, TID influenza, 0.5 mL, IntraMUSCular, Prior to discharge isosorbide dinitrate, 20 mg, Oral, TID pantoprazole, 40 mg, Oral, BID AC sodium bicarbonate, 1,300 mg, Oral, BID Physical Examination: Vitals: 06/13/24 1717 06/13/24 1930 06/13/24 2319 06/14/24 0340 BP: 113/79 108/80 111/80 124/91 BP Location: Left arm Left arm Left arm Patient Position: Lying Lying Lying Pulse: 74 112 96 97 Resp: 16 18 17 18 Temp: (!) 35.9 C (96.7 F) 36.3 C (97.4 F) 36.7 C (98 F) 36.9 C (98.4 F) TempSrc: Temporal Temporal Temporal Temporal SpO2: 94% 94% 100% 98% Weight: 180 lb 3.2 oz (81.7 kg) 180 lb 5.4 oz (81.8 kg) Height: 6' 1 (1.854 m) Intake/Output Summary (Last 24 hours) at 06/14/2024 0904 Last data filed at 06/14/2024 0340 Gross per 24 hour Intake 206 ml Output 3675 ml Net -3469 ml Wt Readings from Last 3 Encounters: 06/14/24 180 lb 5.4 oz (81.8 kg) 06/08/24 182 lb 3.2 oz (82.6 kg) 05/28/24 180 lb (81.6 kg) Physical Exam Constitutional: no distress. well nourished. well hydrated. He is laying flat in bed and appears comfortable on no oxygen. Psychiatric: A &O x 3. Medical insight fair NMT: Oral mucosa is pink and moist Neck: 6 cm JVD. Respiratory: Lungs are clear Cardiac exam: Rhythm: RRR ; Normal S1 and S2 Murmur: 2/6 systolic Other: No rub; S4 gallop Vasc: Peripheral pulses 2+ Abdomen: Soft, NT, no hepatic enlargement Extremities: 2+ bilateral LE edema Skin: Warm to touch and well perfused Laboratory Tests: TROPONIN I, CONVENTIONAL SENSITIVITY TROPONIN I Date Value Ref Range Status 05/28/2024 0.037 (H) <0.034 ng/mL Final 05/28/2024 0.051 (H) <0.034 ng/mL Final 04/28/2024 0.032 <0.034 ng/mL Final 04/28/2024 0.025 <0.034 ng/mL Final 04/28/2024 0.020 <0.034 ng/mL Final TROPONIN I, HIGH SENSITIVITY Troponin HS, Serial Baseline Date Value Ref Range Status 06/13/2024 50 (H) <=35 ng/L Final Troponin HS, Serial Second Date Value Ref Range Status 06/13/2024 53 (H) <=35 ng/L Final Troponin HS Delta, Baseline to Second Date Value Ref Range Status 06/13/2024 3 <=2 ng/L Final Comment: This specimen was collected more than 20 minutes away from the 2 hour target. Use of this delta with the 2 hour troponin algorithm is not recommended, individualized clinical assessment is needed. A troponin delta greater than or equal to 15 ng/L is significant for acute cardiac injury. Values less than 15 but greater than 2 are an intermediate change requiring a 3rd serial troponin to be drawn. Values less than or equal to 2 indicate acute cardiac injury is not likely, see external algorithmsfor further clinical guidance. Troponin HS, Serial Third Date Value Ref Range Status 06/13/2024 49 (H) <=35 ng/L Final Troponin HS Delta, Second to Third Date Value Ref Range Status 06/13/2024 -4 <=2 ng/L Final Comment: This specimen was collected more than 20 minutes away from the 2 hour target. Use of this delta with the 2 hour troponin algorithm is not recommended, individualized clinical assessment is needed. A troponin delta greater than or equal to 15 ng/L is suggestive of acute cardiac injury. Values less than 15, see clinical guidance for ED and Inpatient algorithms. Recent Labs 06/13/24 1459 06/13/245 06/14/24 0342 NA 142 142 144 K 5.7* 4.9 3.6 CL 113* 114* 118* CO2 17* 18* 15* BUN 36* 34* 32* CREATININE 2.32* 2.03* 1.74* EGFR 34.2* 40.2* 48.4* Recent Labs 06/13/24 1459 WBC 8.7 HGB 16.4 HCT 52.1* MCV 103.2* PLT 217 Lab Results Component Value Date HGBA1C 5.0 03/01/2024 Lab Results Component Value Date TSH 2.79 06/13/2024 Lab Results Component Value Date CHOL 130 06/14/2024 CHOL 172 02/29/2024 Lab Results Component Value Date HDL 16 (L) 06/14/2024 HDL 28 (L) 02/29/2024 Lab Results Component Value Date LDLCALC 100 (H) 06/14/2024 LDLCALC 126 (H) 02/29/2024 Lab Results Component Value Date TRIG 68 06/14/2024 TRIG 88 02/29/2024 Recent Labs 06/13/24 1459 BNP 30,000* Results from last 7 days Lab Units 06/13/24 1459 06/08/24 1326 AST U/L 47* 51* ALT U/L 121* 146* Radiology: CXR: personally reviewed: Cardiomegaly, pulmonary vascular congestion Cardiac Tests Personally Reviewed: ECG 12-LEAD 06/14/2024 2:04 AM (Final) Impression Sinus tachycardia Left atrial enlargement Left ventricular hypertrophy Low voltage limb leads ST elevation secondary to IVCD Telemetry findings: Normal sinus rhythm with low-grade sinus tachycardia intermittently Reports reviewed: TRANSTHORACIC ECHOCARDIOGRAM (TTE) COMPLETE (CONTRAST/BUBBLE/3D PRN) 02/29/2024 9:39 AM (Final) Interpretation Summary Left Ventricle: Left ventricle is mildly dilated. Mildly increased wall thickness. Mild septal thickening. Moderately reduced left ventricular systolic function. EF by 2D Simpsons Biplane is 30%. Global longitudinal strain is -7.1%. Severe global hypokinesis present. Grade II diastolic dysfunction with increased LAP. Right Ventricle: Right ventricle size is normal. Normal systolic function. TAPSE is 2.5 cm. Aortic Valve: No stenosis. AV mean gradient is 3 mmHg. AV peak velocity is 1.2 m/s. LVOT:AV VTI Index is 0.76. Mitral Valve: Moderate (2+) regurgitation. Tricuspid Valve: RVSP is 23 mmHg. Left Atrium: Left atrium is moderately dilated. LA Vol Index A/L is 42 mL/m2. Aorta: Normal sized sinuses of Valsalva and ascending aorta. Sinuses of Valsalva diameter is 3.2 cm. Ao ascending diameter is 3.3 cm. IVC/SVC: IVC diameter is normal and decreases greater than 50% during inspiration; therefore the estimated right atrial pressure is normal (~3 mmHg). Signed by: Radha Parikh on 02/29/2024 9:39 AM Last Cath No results found for this or any previous visit. Last Stress Test No results found for this or any previous visit. Last EP study No results found for this or any previous visit. EF BP Date Value Ref Range Status 02/29/2024 30 (A) 55 - 100 % Final Angel Luis Morales MD DATE of SERVICE: 06/14/2024 documented in this [facility]12-21-2024 Plan of care note* Care Plan - King Jackson RN - 06/19/2024 2:31 PM EST Problem: Potential for Compromised Skin Integrity Goal: Nutritional status is improving Outcome: Progressing Problem: Problem Interventions Goal: Dietary Supplements Outcome: Progressing Problem: Knowledge Deficit Goal: Patient/family/caregiver demonstrates understanding of disease process, treatment plan, medications, and discharge instructions Outcome: Progressing [id number] Note* Juliet Canchola RN - 06/18/2024 12:41 PM EST Patient refusing troponin blood draw at this time. [id number] Hospital Discharge instructions* Discharge Instructions* THOMAS Urbano CNP - 06/18/2024 9:11 AM EST Expect a phone call within 72 hours post discharge. If you have questions, issues, or concerns please call or text the Ischemic Heart Disease Hotline, this is a cell phone, # [phone] (available 20/01) Post Cardiac Catheterization/Wrist Site Care Call your doctor with any medication questions or if you notice any side effects from your medications. If you are unable to fill your medications, please call your Bending Shed Worker immediately. The office number is located with your follow-up appointment information. Call your doctor if any redness or drainage from the wound site. DO NOT stop taking your medication unless instructed to do so by your doctor. No alcoholic beverages for 24 hours. It may interfere with healing. No exercise or sex for 5 days. Call your doctor if a lump at the puncture site enlarges or is larger than marble size. Call your doctor for numbness, tingling, or swelling of the fingers, hand or wrist. Call your doctor for increased area or bruising with discoloration extending into the arm. If bleeding occurs, hold pressure with your thumb against the puncture site and your finger againstthe back of the wrist for 10 minutes, if BLEEDING continues CALL 911. OK to shower. No tub baths, swimming pools or hot tub soaking for 3 days. Wash site daily with soap and water, dry gently. The healing wound should remain soft and dry. Keepsite clean and dry, no soaking of wrist for 3 days (no cleaning or dish washing). Remove band aid the day after procedure and leave open to air. No bending of affected wrist for 24 hours. DO NOT lift more than 3 pounds for 3- [address] days[address] driving for 24 hours. ACUTE CORONARY SYNDROME (Heart attack, Myocardial Infarction [STEMI/NSTEMI], unstable angina): situations where the blood supplied to the heart muscle is severely reduced or blocked (the blockage canbe a narrowing or sudden and complete). Then the section of the heart muscle supplied by that artery can be damaged. The amount of damage increases the longer an artery stays blocked and in some cases, it may even . The amount of damage to the heart muscle depends on the size of the area supplied by the blocked artery and the time between injury and treatment. Risk Factors Cannot Change [] Age [] Gender [] Family history of heart disease Can Change [] Tobacco use (cigarettes, chewing, vape) [] Diabetes [] High cholesterol [] Sedentary lifestyle [] Poor diet [] For women, a History of high blood pressure, pre-eclampsia or diabetes during GREEN ZONE: All Clear- Your Symptoms Are Under Control No increase in frequency or severity of chest pain No increased shortness of breath No lightheadedness or dizziness This Means You Should: Continue taking your medications as prescribed Continue activity as tolerated Exercise regularly or as recommended by your physician Eat a healthy diet low in saturated and trans fat, limiting alcohol and caffeine Maintain a healthy weight Keep all doctor appointments Avoid smoking YELLOW ZONE: Caution Chest pain, pressure or tightness - return of symptoms similar to what brought you to the hospital Pain radiating into your neck, jaw or arm Shortness of breath Nausea or heavy sweating Lightheadedness or dizziness Any side effects from your medications Uneasy feeling or that something is wrong This Means You Should: Call/text the Ischemic hotline [phone] or your doctor's office for further instructions RED ZONE: Medical Alert Chest pain/pressure/discomfort or pain in the neck, jaw, arm, upper back that is lasting longer than 5 minutes OR NOT relieved after nitroglycerin (if prescribed) Severe shortness of breath Passing out or fainting This Means You Should Call 911 Immediately Heart-Healthy Life-Style Modifications Take your medications as prescribed Quit smoking ([email or web address]) Control your blood sugar Treat high-blood pressure Eat a heart-healthy diet, low in saturated and trans-fat, sodium and added sugars Exercise regularly Achieve and maintain a healthy weight Keep your follow-up appointments Ask Your Provider Before You Take New medications Rfvv-itp-bzxvxwj drugs, nutrition supplements or herbal therapies Avoid nonsteroidal anti-inflammatory drugs (NSAIDS). Example are ibuprofen (Advil , Motrin ) and naproxen (Aleve , Naprosyn ). Acetaminophen (Tylenol ) is recommended to relieve aches, pains and/or fever. Avoid decongestants, such as pseudoephedrine (Sudafed ). If you have any questions about whether it is safe to take a medicine, ask your doctor, nurse, or pharmacist. Cardiac Rehab The Cardiac Rehab team at [facility] consists of highly skilled exercise physiologists, nurses, respiratory therapists and physicians working together with you. Our purpose is to help you have a full recovery and achieve the goals you set for yourself. Over the years many of our patients have returned to activities they assumed they would never do again! We can help restore your confidence and motivation to make lifestyle changes that can have a significant impact on your health and quality of life! We can help answer questions and concerns you may have about exercise, lifestyle, medications, diet, stress and anxiety which are common following a hospitalization. We monitor ECG and vital signs during exercise and discuss your progress with you and report to your physician. Cardiac Rehab is proven to help reduce readmissions, improve functional capacity and lower recurrence of problems with your heart. We have facilities at both [facility] and [facility]. At both locations we have street level parking which is free and our sites are easily accessible. For both [facility] you can contact us at . We invite you to call us with your questions or to get started in our program. If you have other questions or concerns be sure to ask your provider during your follow up visit. We look forward to seeing you there. Our locations: [facility] [address] [facility] [id number] - Ground floor * Attachments The following attachments cannot be sent through Care Everywhere. * Heart Failure With Reduced Ejection Fraction (Moroccan) * Heart Healthy Diet (Moroccan) * Kidney Failure (Moroccan) documented in this [facility]12-20-2024 Nurse Note* Kae Zhao RN - 06/18/2024 6:41 AM EST Patient had ST elevation on two leads, I called Dr. Jeter EKG done and showed ST elevation, and sinus tachycardia, with no symptoms or chest pain. Patient refused blood work again to check his troponin, BNP, and magnesium levels. IV is edematous and patient needs a new IV if not discharged. [id number] NoteProblem: Problem Interventions Goal: Promote nutritional intake Outcome: [facility] Plan of care note* Care Plan - Kae Vela RN - 06/18/2024 1:44 AM EST Problem: Problem Interventions Goal: Promote nutritional intake Outcome: Not Progressing [id number] Nurse Note* Juliet Canchola RN - 06/17/2024 2:17 PM EST Patient had a twenty second run of vtach caught on tele monitor. Dr. Mcguire and Gaby Marcano DOUGHNUT MACHINE OPERATOR HELPER forcardiology notified. No new orders at this time. [id number] Nurse Note* Juliet Canchola RN - 06/17/2024 2:00 PM EST VascBand removed from right radial site. All air removed per order (2ml every fifteen mins removed from site.) Site is dry, clean, and intact. No signs of bleeding or hematoma at site. 2+ pulses in RUE at this time. Cap refill less than three seconds. Patient reports normal sensation in right hand at this time. [id number] Note* Pre-Sedation Documentation - Akilah Diaz MD - 06/17/2024 9:57 AM EST Sedation Plan ASA class 3 - patient with severe systemic disease Mallampati class: II - soft palate, uvula, fauces visible. Sedation plan: local anesthesia and minimal sedation Risks, benefits, and alternatives discussed with patient. Immediate reassessment prior to sedation: Patient's status reviewed and vital signs assessed; acceptable to perform procedure and proceed to administer sedation as planned. [employer] Phone: 1(698) 718-441212-19-2024 Note* Pre-Sedation Documentation - Akilah Diaz MD - 06/17/2024 9:57 AM EST Sedation Plan ASA class 3 - patient with severe systemic disease Mallampati class: II - soft palate, uvula, fauces visible. Sedation plan: local anesthesia and minimal sedation Risks, benefits, and alternatives discussed with patient. Immediate reassessment prior to sedation: Patient's status reviewed and vital signs assessed; acceptable to perform procedure and proceed to administer sedation as planned. [employer] Phone: [phone]) 808-724512-19-2024 Note* Significant Event - THOMAS Urbano CNP - 06/17/2024 8:43 AM EST Spoke with Marcus Delvalle RN from labor relations officer. Pt refused RHC/LHC yesterday, but was agreeable to do procedure today. Spoke with patient this AM, he is still agreeable to procedure. He is NPO. He did refuse labs this morning, but has labs from the day before, and has not received IV Lasix since 06/15. Unable to locate prior cath orders, and new order set for RHC/LHC placed this morning, including aspirin and IV Fluids per Poseidon protocol. Reviewed with his nurse, as well as Marcus Delvalle RN. No further questions at this time. Will await cath results. [facility]12-19-2024 Note* Significant Event - THOMAS Urbano CNP - 06/17/2024 8:43 AM EST Spoke with Marcus Delvalle RN from labor relations officer. Pt refused RHC/LHC yesterday, but was agreeable to do procedure today. Spoke with patient this AM, he is still agreeable to procedure. He is NPO. He did refuse labs this morning, but has labs from the day before, and has not received IV Lasix since 06/15. Unable to locate prior cath orders, and new order set for RHC/LHC placed this morning, including aspirin and IV Fluids per Poseidon protocol. Reviewed with his nurse, as well as Marcus Delvalle RN. No further questions at this time. Will await cath results. [id number] Nurse Note* Radha Acevedo RN - 06/16/2024 9:28 AM EST Had discussion with pt regarding his heart cath. This pt expressed that he is scared to have the procedure and is not going to go through with it at this time. Pt educated on need of heart cath and talked about pt's feelings regarding heart cath. Pt states I will do it another time, but I am not doing it right now. Pt was agreeable to let me draw morning labs as he refused for nightshift. Radha Acevedo RN [id number] Plan of care note* Care Plan - Kae Vela RN - 06/16/2024 1:29 AM EST Problem: Knowledge Deficit Goal: Patient/family/caregiver demonstrates understanding of disease process, treatment plan, medications, and discharge instructions Outcome: Not Progressing Problem: Potential for Compromised Skin Integrity Goal: Skin Integrity is Maintained or Improved Outcome: Not Progressing Goal: Nutritional status is improving Outcome: Not Progressing Problem: Urinary Incontinence Goal: Perineal skin integrity is maintained or improved Outcome: Not Progressing Problem: Problem Interventions Goal: Dietary Supplements Outcome: Not Progressing Goal: Promote nutritional intake Outcome: Not Progressing [facility]12-17-2024 Note* Care Coordination - Brittany Alston RN - 06/15/2024 1:20 PM EST Care Management Progress Note Pt has been verified as SELF PAY by financial counselor's. If pt requires Eliquis and /or other meds at DC then need to call and send scripts to Meds to beds prior to DC. RN taking care of pt updatedthat will need to get DC meds from Meds to beds prior to DC. Length of Stay (Days): 2 GMLOS: 3.9 [facility]12-17-2024 Note* Care Coordination - Brittany Alston RN - 06/15/2024 1:20 PM EST Care Management Progress Note Pt has been verified as SELF PAY by financial counselor's. If pt requires Eliquis and /or other meds at DC then need to call and send scripts to Meds to beds prior to DC. RN taking care of pt updatedthat will need to get DC meds from Meds to beds prior to DC. Length of Stay (Days): 2 GMLOS: 3.9 [facility]12-17-2024 Consult note* Maritza Linn APRN - VIKKI - 06/15/2024 9:44 AM ESTAssociated Order(s): IP CONSULT TO NEPHROLOGY [facility] Consult Note Reason for Consult/Chief Complaint: SCHUYLER/CKD with CHF exacerbation Consulting MD: Dr. Sergei Mcguire [facility] [place] Outpatient Electrical Engineer: N/A History of Present Illness: Carlo is a 44 y.o. male with a past medical history of CKD and CHF who presented to the emergencydepartment for the evaluation of abdominal pain. Also increased leg swelling in the last 2 weeks and shortness of breath as well. As for the abdominal pain, this is not new and has been ongoing. He was seen by surgery a month ago in the hospital and had MRI done of his gallbladder as at that time they thought it might be the gallbladder. Meanwhile outpatient, he already has an appointment to see a GI specialist for this as well. Him and his significant other denies that there is any relation with the pain with eating food. The pain is mainly in the upper mid abdomen. He has never had a CAT scan of his abdomen done yet and also never been scoped. He does look completely comfortable laying inbed in no acute distress. There is no grimacing and no guarding either. He is smiling and able to give a history fine. Meanwhile he is also found to have a BNP of 30,000 along with increased leg swelling in the last 2 weeks. He admits to having shortness of breath as well. He was placed on torsemide a month ago but he told me no way he is taking that. He has a history of noncompliance he with hisdiuretics as well. Otherwise, currently denies any chest pain. No nausea or vomiting. No fevers or chills. Nephrology is asked to see the patient for SCHUYLER/CKD in the setting of CHF exacerbation. Scr is currently 2.41, previously 1.74 and has a baseline of 1.5- 1.7. Was receiving lasix 60 mg BID and received5 doses over the last 48 hours. No known use of nsaids. PO intake has been fair even in the settingof his c/o stomach pain. Denies N/V/D. Refusing his PPI. UOP is sufficient. No relative hypotensionnoted. No large fluctuations in hemodynamics noted. No evidence of KELSIE. Past Medical History: Past Medical History: Diagnosis Date CHF (congestive heart failure) (HCC) CKD (chronic kidney disease) Hypercholesteremia Hypertension Past Surgical History: History reviewed. No pertinent surgical history. Family History: Family History Problem Relation Name Age of Onset Heart disease Father Heart disease Brother Social History: Social History Tobacco Use Smoking status: Never Passive exposure: Never Smokeless tobacco: Never Vaping Use Vaping status: Never Used Substance Use Topics Alcohol use: Never Drug use: Never Medications: apixaban, 10 mg, Oral, BID Followed by [START ON 06/21/2024] apixaban, 5 mg, Oral, BID carvedilol, 25 mg, Oral, BID WC cholecalciferol, 4,000 Units, Oral, Daily clopidogrel, 75 mg, Oral, Daily hydrALAZINE, 25 mg, Oral, TID influenza, 0.5 mL, IntraMUSCular, Prior to discharge isosorbide dinitrate, 20 mg, Oral, TID pantoprazole, 40 mg, Oral, BID AC sodium bicarbonate, 1,300 mg, Oral, BID Allergies: Reviewed Review of Systems: Pertinent positives stated above in HPI. All other systems were reviewed and were negative. Physical exam: Constitutional: Vitals: 06/14/24 2339 06/15/24 0354 06/15/24 0608 06/15/24 0714 BP: 116/84 132/97 120/90 BP Location: Patient Position: Pulse: 53 112 57 Resp: 18 18 16 Temp: 36.2 C (97.2 F) 36.9 C (98.5 F) 36.3 C (97.3 F) TempSrc: Temporal Temporal Temporal SpO2: 100% 100% 100% Weight: 78.9 kg (173 lb 15.1 oz) Height: 24HR BLOOD PRESSURE RANGE: Systolic (24hrs), Av , Min:103 , Max:132 ; Diastolic (24hrs), Av, Min:77, Max:97 24HR INTAKE/OUTPUT: Intake/Output Summary (Last 24 hours) at 06/15/2024 0944 Last data filed at 06/15/2024 0523 Gross per 24 hour Intake 200 ml Output 3100 ml Net -2900 ml Physical Exam: Appearance: NAD, awake, alert, cooperative to exam Eyes: PERRLA, clear sclera ENT: hearing normal, no oral thrush, no erythema or exudate on hard or soft palate, tongue normal, moist mucus membranes Neck: supple, slight JVD, no thyromegaly Respiratory: breathing unlabored, lungs CTA B/L anteriorly without w/r/r Cardiovascular: heart RRR without m/g/r, pedal pulses palpable Gastrointestinal: abdomen soft, non-tender, non-distended, normoactive bowel sounds. No masses or hernia. Musculoskeletal: normal muscle strength and tone, no edema of BLE Skin: warm and dry, no rash or wounds Neurologic: symmetric strength and sensation Psychiatric: alert and oriented to person/place/time, judgement and insight normal, memory intact, normal mood and range of affect Data: CBC: Recent Labs 06/13/24 1459 WBC 8.7 RBC 5.05 HGB 16.4 HCT 52.1* MCV 103.2* RDW 14.6 PLT 217 BMP: Recent Labs 06/13/24 2035 06/14/24 0342 06/15/24 0414 NA 142 144 144 K 4.9 3.6 4.1 CL 114* 118* 103 CO2 18* 15* 26 BUN 34* 32* 37* CREATININE 2.03* 1.74* 2.41* BNP: Recent Labs 06/13/24 1459 BNP 30,000* UA: pending Imaging: Exam Date/Time: 06/14/2024 09:41 Procedure: CT ABDOMEN PELVIS WO IV CONTRAST FINDINGS: This examination is limited for the evaluation of solid organs and vascular structures due to the lack of intravenous contrast. Lower thorax: Cardiomegaly. Otherwise unremarkable. Stomach: Unremarkable. Liver: Normal size and contours. Normal hepatic parenchyma. No focal lesion. Biliary tree: Unremarkable gallbladder by CT. No biliary dilatation Spleen: Normal Adrenals: Normal. Pancreas: Normal. Right kidney and collecting system: No contour abnormality or focal renal lesion identified. No calculi, hydronephrosis or ureteral dilatation. Left kidney and collecting system: No contour abnormality or focal renal lesion identified. No calculi, hydronephrosis or ureteral dilatation. Free air or fluid: Small amount of nonspecific free fluid in the dependent pelvis. No free air. Mesenteric/retroperitoneal: No adenopathy or inflammation. Aorta: Normal caliber. Bowel: Normal appendix. No inflammatory change or bowel dilatation is noted. Bladder: No calculi or filling defects. Urinary bladder is physiologically distended. Inguinal: No lymphadenopathy. Abdominal wall/soft tissues: Fat containing umbilical hernia. Osseous structures: No osseous abnormalities. IMPRESSION: 1. Small amount of nonspecific free fluid in the dependent pelvis. 2. Cardiomegaly. Assessment: SCHUYLER/ATN, possibly 2/2 volume depletion from over-diuresis vs CRS (N17.0) Acute on chronic HFrEF exacerbation (I50.23) Severe protein calorie malnutrition (E43) Noncompliance with medication (Z91.1) Abdominal pain CKD3b Acute BLE DVTs Plan: -Scr currently 2.41, bl~1.5-1.7, non-oliguric, BP stable -Hold diuresis for now -Ok for prn diuresis for s/s of acute respiratory distress -Await repeat echo results -Needs daily standing weights and strict I&Os -May benefit from dietitian consult -SCHUYLER workup ordered, noted urine lytes will may be skewed from diuresis use -CT abdomen reviewed, no acute renal process identified -Bladder scan x1 for pvr, place agustin for >350cc -Avoid nephrotoxins and contrast dye -Dose all meds per current eGFR -Anticoagulation per primary team -Needs to be compliant with all care on a regular basis to be successful and prevent future hospitalizations -Complex MDM -All other care per primary team -We will follow closely with you Thank you for the consult and the opportunity to participate in the care of this patient. Please donot hesitate to call with any questions or concerns. Maritza Linn APRN, VIKKI [facility], [facility] [phone] office Cosigned by Anand Mccullough MD at 06/15/2024 2:17 PM EST Associated attestation - Anand Mccullough MD - 06/15/2024 2:17 PM EST Seen and examined. Agree with above A and p. Variances as noted below. Cr spiked likely from diuresis/CRS Hold diuresis. Reviewed Echo report , EF further reduced to 20%, also with RV systolic HF. This could explain further deterioration of renal function from prior baseline. Await peaking of Cr. PVR to r/o urinary retention. [id number] Plan of care note* Care Plan - Emerald Allan RN - 06/15/2024 5:42 AM EST Problem: Knowledge Deficit Goal: Patient/family/caregiver demonstrates understanding of disease process, treatment plan, medications, and discharge instructions Outcome: Progressing Problem: Potential for Compromised Skin Integrity Goal: Skin Integrity is Maintained or Improved Outcome: Progressing Problem: Urinary Incontinence Goal: Perineal skin integrity is maintained or improved Outcome: Progressing [id number] Nurse Note* Emerald Allan RN - 06/15/2024 3:09 AM EST Patient is resting in bed. Bed in low position and locked with call light in reach. [id number] Note* Care Coordination - MICHAEL Kramer - 06/14/2024 2:33 PM EST JOZEF coverage for today. Chart reviewed. Pt discussed in rounds today. Pt is self pay, but has indicates that he will have insurance starting in Jun 2024. Per old chart on 04/28/2024 SW was able to communicated with Christian from [employer]. Financial screening completed with patient this afternoon. Patient was over income for Medicaid program. [facility] Program; application completed and submitted. HCAP will assist with current hospitalization and other [facility] hospital encounters for up to 3 months if approved. HCAP will not assist with home going prescriptions. SW will follow to assist as needed. [place] [id number] Note* Care Coordination - MICHAEL Kramer - 06/14/2024 2:33 PM EST JOZEF coverage for today. Chart reviewed. Pt discussed in rounds today. Pt is self pay, but has indicates that he will have insurance starting in Jun 2024. Per old chart on 04/28/2024 SW was able to communicated with Christian from [employer]. Financial screening completed with patient this afternoon. Patient was over income for Medicaid program. [facility] referred patient to Hospital Care Assurance Program; application completed and submitted. HCAP will assist with current hospitalization and other [facility] encounters for up to 3 months if approved. HCAP will not assist with home going prescriptions. SW will follow to assist as needed. [id number] Consult note* Angel Luis Morales MD - 06/14/2024 9:04 AM ESTAssociated Order(s): IP CONSULT TO CARDIOLOGY [facility] [place] [facility] [place] Cardiology /Electrophysiology Consult Note Reason for Consult/Chief Complaint: Dyspnea, edema Consulting provider: Andrew Established radar engineer: Leatha History of Present Illness: Carlo Medina is a 44 y.o. male with a history of heart failure reduced EF diagnosed February 2024, likely due to nonischemic cardiomyopathy, EF 30% with known moderate mitral regurgitation, chronic kidney disease, who was just in the hospital from 05/28-06/01 and comes back now due to worsening abdominal pain and edema with dyspnea. He was diagnosed with possible gallbladder disease at his lastadmission but wanted to leave before surgery could complete the work up. He says that last week he was so tired he had difficulty getting out of bed and he had to miss work all week long. He was seenin our office on June 08, and at that time he was felt to be volume overloaded and his Lasix was made daily instead of every other day. Besides feeling weak, he also was noted abdominal pain which is intermittent, but fairly severe when it occurs. Interestingly, this pain is worse when he does not eat and improves when he does. He has had some elevation of liver enzymes and scans have suggested possible cholecystitis and he was waiting for an outpatient HIDA scan. He denies associated nausea, vomiting, diarrhea, fevers, chills. He denies other symptoms of congestive heart failure such as PND, orthopnea but he does have bilateral lower extremity edema. He denies chest pain, palpitations or syncope. He came into the ER mostly because of his abdominal pain. He was treated with IV Lasix and IV morphine and today he says he feels better and has more energy and less abdominal pain. Lower extremity duplexes this morning revealed he has bilateral deep venous thrombosis. CT scan of his abdomen was essentially negative. Assessment/Plan HF NYHA Class [] I [] II [x] III [] IV []Unable to assess Heart failure with reduced ejection fraction: This was diagnosed initially in February and was thought to be hypertension related. The plan is eventually to do an outpatient ischemia workup, but that has not been done today because he is had issues with insurance as well as recurrent hospital admissions. Currently, I am concerned that his abdominal pain could be a manifestation of decreased cardiac output although he does not have a lot of other symptoms of this and he does not appear to be markedly volume overloaded currently. He is unable to tolerate LUCRECIA inhibitors, ARB's or spironolactonedue to his renal function and non-anion gap acidosis. His blood pressure seems to be pretty well-managed with his current regimen of carvedilol, hydralazine and isosorbide. Continue current doses of carvedilol, hydralazine and isosorbide Will check a follow-up echo today to see if his LV function has improved at all in the past 3 months and to see what his filling pressures look like Based on his clinical status, he be a good candidate I think for right and left heart catheterization at some point to be sure his abdominal symptoms are not due to low cardiac output For now, continue furosemide 60 mg IV twice daily Monitor I's and O's, daily weight, daily BMP Recurrent abdominal pain: This pain has been going on for over a month, and does not sound like classic biliary pain or decreased cardiac output given the fact that the pain is worse when he has not eaten and improves when he does. Also he does not have nausea, vomiting or anorexia which would occur with patients who have low cardiac output. His CT scan done earlier today was normal and did not show significant amount of ascites, nor did it suggest an active biliary process. Echocardiogram as above to assess filling pressures, cardiac output Consider getting HIDA scan which was suggested last admission by surgery Consider right heart cath to make sure his cardiac output is adequate and not contributing to this pain Chronic kidney disease: He says he really did have kidney disease until he was diagnosed with heartfailure, although his labs dating back to January have shown a creatinine of 1.5 or greater and we do not have anything older than that. He admits that he was told he had hypertension many years ago and has not had it treated which could be the etiology of both his heart and kidney disease. Also, inthe past month and a half, he has developed a non-anion gap acidosis of uncertain etiology. He has been put on sodium bicarbonate tablets which may help the acidosis, but could aggravate his heart failure. Consider nephrology reassessment Monitor renal function closely with diuresis Avoid nephrotoxins Acute deep venous thrombosis: This was just discovered this admission, may be related to his frequent hospitalizations and decreased mobility last week because he felt so weak. He has been started onEliquis by the primary service. Medications: carvedilol, 25 mg, Oral, BID WC cholecalciferol, 4,000 Units, Oral, Daily clopidogrel, 75 mg, Oral, Daily enoxaparin, 40 mg, SubCUTAneous, Daily furosemide, 60 mg, IntraVENous, BID hydrALAZINE, 25 mg, Oral, TID influenza, 0.5 mL, IntraMUSCular, Prior to discharge isosorbide dinitrate, 20 mg, Oral, TID pantoprazole, 40 mg, Oral, BID AC sodium bicarbonate, 1,300 mg, Oral, BID Physical Examination: Vitals: 06/13/24 1717 06/13/24 1930 06/13/24 2319 06/14/24 0340 BP: 113/79 108/80 111/80 124/91 BP Location: Left arm Left arm Left arm Patient Position: Lying Lying Lying Pulse: 74 112 96 97 Resp: 16 18 17 18 Temp: (!) 35.9 C (96.7 F) 36.3 C (97.4 F) 36.7 C (98 F) 36.9 C (98.4 F) TempSrc: Temporal Temporal Temporal Temporal SpO2: 94% 94% 100% 98% Weight: 180 lb 3.2 oz (81.7 kg) 180 lb 5.4 oz (81.8 kg) Height: 6' 1 (1.854 m) Intake/Output Summary (Last 24 hours) at 06/14/2024 0904 Last data filed at 06/14/2024 0340 Gross per 24 hour Intake 206 ml Output 3675 ml Net -3469 ml Wt Readings from Last 3 Encounters: 06/14/24 180 lb 5.4 oz (81.8 kg) 06/08/24 182 lb 3.2 oz (82.6 kg) 05/28/24 180 lb (81.6 kg) Physical Exam Constitutional: no distress. well nourished. well hydrated. He is laying flat in bed and appears comfortable on no oxygen. Psychiatric: A &O x 3. Medical insight fair NMT: Oral mucosa is pink and moist Neck: 6 cm JVD. Respiratory: Lungs are clear Cardiac exam: Rhythm: RRR ; Normal S1 and S2 Murmur: 2/6 systolic Other: No rub; S4 gallop Vasc: Peripheral pulses 2+ Abdomen: Soft, NT, no hepatic enlargement Extremities: 2+ bilateral LE edema Skin: Warm to touch and well perfused Laboratory Tests: TROPONIN I, CONVENTIONAL SENSITIVITY TROPONIN I Date Value Ref Range Status 05/28/2024 0.037 (H) <0.034 ng/mL Final 05/28/2024 0.051 (H) <0.034 ng/mL Final 04/28/2024 0.032 <0.034 ng/mL Final 04/28/2024 0.025 <0.034 ng/mL Final 04/28/2024 0.020 <0.034 ng/mL Final TROPONIN I, HIGH SENSITIVITY Troponin HS, Serial Baseline Date Value Ref Range Status 06/13/2024 50 (H) <=35 ng/L Final Troponin HS, Serial Second Date Value Ref Range Status 06/13/2024 53 (H) <=35 ng/L Final Troponin HS Delta, Baseline to Second Date Value Ref Range Status 06/13/2024 3 <=2 ng/L Final Comment: This specimen was collected more than 20 minutes away from the 2 hour target. Use of this delta with the 2 hour troponin algorithm is not recommended, individualized clinical assessment is needed. A troponin delta greater than or equal to 15 ng/L is significant for acute cardiac injury. Values less than 15 but greater than 2 are an intermediate change requiring a 3rd serial troponin to be drawn. Values less than or equal to 2 indicate acute cardiac injury is not likely, see external algorithmsfor further clinical guidance. Troponin HS, Serial Third Date Value Ref Range Status 06/13/2024 49 (H) <=35 ng/L Final Troponin HS Delta, Second to Third Date Value Ref Range Status 06/13/2024 -4 <=2 ng/L Final Comment: This specimen was collected more than 20 minutes away from the 2 hour target. Use of this delta with the 2 hour troponin algorithm is not recommended, individualized clinical assessment is needed. A troponin delta greater than or equal to 15 ng/L is suggestive of acute cardiac injury. Values less than 15, see clinical guidance for ED and Inpatient algorithms. Recent Labs 06/13/24 1459 06/13/245 06/14/24 0342 NA 142 142 144 K 5.7* 4.9 3.6 CL 113* 114* 118* CO2 17* 18* 15* BUN 36* 34* 32* CREATININE 2.32* 2.03* 1.74* EGFR 34.2* 40.2* 48.4* Recent Labs 06/13/24 1459 WBC 8.7 HGB 16.4 HCT 52.1* MCV 103.2* PLT 217 Lab Results Component Value Date HGBA1C 5.0 03/01/2024 Lab Results Component Value Date TSH 2.79 06/13/2024 Lab Results Component Value Date CHOL 130 06/14/2024 CHOL 172 02/29/2024 Lab Results Component Value Date HDL 16 (L) 06/14/2024 HDL 28 (L) 02/29/2024 Lab Results Component Value Date LDLCALC 100 (H) 06/14/2024 LDLCALC 126 (H) 02/29/2024 Lab Results Component Value Date TRIG 68 06/14/2024 TRIG 88 02/29/2024 Recent Labs 06/13/24 1459 BNP 30,000* Results from last 7 days Lab Units 06/13/24 1459 06/08/24 1326 AST U/L 47* 51* ALT U/L 121* 146* Radiology: CXR: personally reviewed: Cardiomegaly, pulmonary vascular congestion Cardiac Tests Personally Reviewed: ECG 12-LEAD 06/14/2024 2:04 AM (Final) Impression Sinus tachycardia Left atrial enlargement Left ventricular hypertrophy Low voltage limb leads ST elevation secondary to IVCD Telemetry findings: Normal sinus rhythm with low-grade sinus tachycardia intermittently Reports reviewed: TRANSTHORACIC ECHOCARDIOGRAM (TTE) COMPLETE (CONTRAST/BUBBLE/3D PRN) 02/29/2024 9:39 AM (Final) Interpretation Summary Left Ventricle: Left ventricle is mildly dilated. Mildly increased wall thickness. Mild septal thickening. Moderately reduced left ventricular systolic function. EF by 2D Simpsons Biplane is 30%. Global longitudinal strain is -7.1%. Severe global hypokinesis present. Grade II diastolic dysfunction with increased LAP. Right Ventricle: Right ventricle size is normal. Normal systolic function. TAPSE is 2.5 cm. Aortic Valve: No stenosis. AV mean gradient is 3 mmHg. AV peak velocity is 1.2 m/s. LVOT:AV VTI Index is 0.76. Mitral Valve: Moderate (2+) regurgitation. Tricuspid Valve: RVSP is 23 mmHg. Left Atrium: Left atrium is moderately dilated. LA Vol Index A/L is 42 mL/m2. Aorta: Normal sized sinuses of Valsalva and ascending aorta. Sinuses of Valsalva diameter is 3.2 cm. Ao ascending diameter is 3.3 cm. IVC/SVC: IVC diameter is normal and decreases greater than 50% during inspiration; therefore the estimated right atrial pressure is normal (~3 mmHg). Signed by: Radha Parikh on 02/29/2024 9:39 AM Last Cath No results found for this or any previous visit. Last Stress Test No results found for this or any previous visit. Last EP study No results found for this or any previous visit. EF BP Date Value Ref Range Status 02/29/2024 30 (A) 55 - 100 % Final Angel Luis Morales MD DATE of SERVICE: 06/14/2024 [id number] Plan of care note* Care Plan - Shabana Drew RN - 06/13/2024 9:41 PM EST Problem: Knowledge Deficit Goal: Patient/family/caregiver demonstrates understanding of disease process, treatment plan, medications, and discharge instructions Outcome: Progressing Problem: Potential for Compromised Skin Integrity Goal: Skin Integrity is Maintained or Improved Outcome: Progressing Goal: Nutritional status is improving Outcome: Progressing Problem: Urinary Incontinence Goal: Perineal skin integrity is maintained or improved Outcome: Progressing [facility]12-15-2024 History and physical note* Serg Celaya MD - 06/13/2024 4:23 PM EST Attending History and Physical Admit Date: 06/13/2024 PCP: No primary care provider on file. CHIEF COMPLAINT: SOB, leg swelling and ongoing abdominal pain History Obtained From: patient and significant other and ER HISTORY OF PRESENT ILLNESS: Carlo is a 44 y.o. male with a past medical history of CKD and CHF who presents to the emergency department for the evaluation of abdominal pain. Also increased leg swelling in the last 2 weeks andshortness of breath as well. As for the abdominal pain, this is not new and has been ongoing. He was seen by surgery a month ago in the hospital and had MRI done of his gallbladder as at that time they thought it might be the gallbladder. Meanwhile outpatient, he already has an appointment to see [place] specialist for this as well. Him and his significant other denies that there is any relation with the pain with eating food. The pain is mainly in the upper mid abdomen. He has never had a CAT scan of his abdomen done yet and also never been scoped. He does look completely comfortable laying in bed in no acute distress. There is no grimacing and no guarding either. He is smiling and able to give a history fine. Meanwhile he is also found to have a BNP of 30,000 along with increased leg swelling in the last 2 weeks. He admits to having shortness of breath as well. He was placed on torsemidea month ago but he told me no way he is taking that. He has a history of noncompliance he with his diuretics as well. Otherwise, currently denies any chest pain. No nausea or vomiting. No fevers or chills. Past Medical History: Past Medical History: Diagnosis Date CHF (congestive heart failure) (HCC) Hypercholesteremia Hypertension Past Surgical History: No past surgical history on file. Family History: Family History Problem Relation Name Age of Onset Heart disease Father Heart disease Brother Medications Prior to Admission: No current facility-administered medications on file prior to encounter. Current Outpatient Medications on File Prior to Encounter Medication Sig Dispense Refill carvedilol (Coreg) 25 MG tablet Take 1 tablet (25 mg) by mouth 2 times daily (with meals). 180 tablet 0 cholecalciferol (Vitamin D-3) 50 MCG (2000 UT) tablet Take 2 tablets (4,000 Units) by mouth daily. 180 tablet 0 clopidogrel (Plavix) 75 MG tablet Take 1 tablet (75 mg) by mouth daily. 90 tablet 0 furosemide (Lasix) 40 MG tablet Take 40 mg by mouth daily. hydrALAZINE (Apresoline) 25 MG tablet Take 1 tablet (25 mg) by mouth 3 times daily. 270 tablet 0 isosorbide dinitrate (Isordil) 20 MG tablet Take 1 tablet (20 mg) by mouth 3 times daily. 270 tablet 0 sodium bicarbonate 650 MG tablet Take 2 tablets (1,300 mg) by mouth 2 times daily. 360 tablet 0 [DISCONTINUED] furosemide (Lasix) 40 MG tablet Take 1 tablet (40 mg) by mouth Daily as needed (Weight gain >2 lbs in 2 days, or increased shortness of breath). 90 tablet 0 Allergies: Patient has no known allergies. Social History: Social History Socioeconomic History Marital status: Single Spouse name: Not on file Number of children: Not on file Years of education: Not on file Highest education level: Not on file Occupational History Not on file Tobacco Use Smoking status: Never Passive exposure: Never Smokeless tobacco: Never Vaping Use Vaping status: Never Used Substance and Sexual Activity Alcohol use: Never Drug use: Never Sexual activity: Yes Partners: Female Other Topics Concern Not on file Social History Narrative Not on file Social Drivers of Health Financial Resource Strain: Low Risk (04/28/2024) Overall Financial Resource Strain (CARDIA) Difficulty of Paying Living Expenses: Not very hard Food Insecurity: No Food Insecurity (04/28/2024) Hunger Vital Sign Worried About Running Out of Food in the Last Year: Never true Ran Out of Food in the Last Year: Never true Transportation Needs: No Transportation Needs (05/28/2024) PRAPARE - Transportation Lack of Transportation (Medical): No Lack of Transportation (Non-Medical): No Physical Activity: Insufficiently Active (04/28/2024) Exercise Vital Sign Days of Exercise per Week: 7 days Minutes of Exercise per Session: 10 min Stress: No Stress Concern Present (04/28/2024) [place] [employer] - Occupational Stress Questionnaire Feeling of Stress : Not at all Recent Concern: Stress - Stress Concern Present (02/28/2024) [place] [employer] - Occupational Stress Questionnaire Feeling of Stress : To some extent Social Connections: Unknown (04/28/2024) Social Connection and Isolation Panel [NHANES] Frequency of Communication with Friends and Family: Once a week Frequency of Social Gatherings with Friends and Family: Once a week Attends Holiness Services: Patient unable to answer Active Member of Clubs or Organizations: No Attends Club or Organization Meetings: Never Marital Status: Living with partner Intimate Partner Violence: Not At Risk (04/28/2024) Humiliation, Afraid, Rape, and Kick questionnaire Fear of Current or Ex-Partner: No Emotionally Abused: No Physically Abused: No Sexually Abused: No Housing Stability: Low Risk (05/28/2024) Housing Stability Vital Sign Unable to Pay for Housing in the Last Year: No Number of Times Moved in the Last Year: 0 Homeless in the Last Year: No REVIEW OF SYSTEMS: Other than patient's chronic conditions and those complaints in the history above, the rest of the 10 systems review were done and were negative. Vitals: BP 124/87 Pulse 55 Temp 36.4 C (97.5 F) (Temporal) Resp 16 Ht 6' 1 (1.854 m) Wt 180 lb (81.6 kg) SpO2 95% BMI 23.75 kg/m BMI Classification: Normal Weight (BMI 18.5-24.9) Pulse Ox: SpO2 Av.5 % Min: 95 % Max: 96 % Supplemental O2: PHYSICAL EXAM: General appearance: No apparent distress, appears stated age and cooperative with exam. HEENT: Eyes: No scleral icterus Oral: Tongue is semi-moist Cardiovascular: S1/S2 heard, RRR, 4+leg edema Respiratory: Clear to auscultation bilaterally Abdomen: Soft, some pain to palp of upper abd, but no guarding or grimacing, non-distended bowel sounds positive Musculoskeletal: No obvious deformities seen Skin: No visible rashes or lesions. DATA: CBC: Recent Labs 06/13/24 1459 WBC 8.7 RBC 5.05 HGB 16.4 HCT 52.1* MCV 103.2* RDW 14.6 PLT 217 BMP: Recent Labs 06/13/24 1459 NA 142 K 5.7* CL 113* CO2 17* BUN 36* CREATININE 2.32* GLUCOSE 115* CALCIUM 8.7 ANIONGAP 12 LIVER PROFILE: Recent Labs 06/13/24 1459 AST 47* ALT 121* BILITOT 1.5* ALKPHOS 129 PROT 6.0* PT/INR: No results for input(s): PROTIME, INR in the last 72 hours. CARDIAC ENZYMES: No results for input(s): TROPONINI in the last 72 hours. Procalcitonin: No results found for: PROCAL Urine Culture: No results found for this or any previous visit. COVID-19 PCR: No results for input(s): COVID19 in the last 72 hours. I reviewed: [x] laboratory results [x] radiographic results At the time of today's encounter. Pt was advised of the results. IMPRESSION: Acute, acute on chronic, unstable/uncontrolled chronic problems/diagnoses: # Acute on chronic heart failure with reduced ejection fraction exacerbation- Has known EF of 30%. Start IV Lasix twice a day, strict I's and O's and daily weights, consult cardiology to evaluate andmonitor on telemetry # Hyperkalemia-was given Kayexalate in the ER. Also will be getting Lasix as well IV # Ongoing known upper abdominal pain present on admission - check CT abdomen. Meanwhile, patient already has appointment to follow-up with GI outpatient. Trial of protonix bid as well. # Bilateral lower leg swelling-likely related to congestive heart failure exacerbation with fluid overload. Will check venous duplex to rule out DVT # SCHUYLER on CKD stage II-suspect cardiorenal syndrome. Baseline creatinine is 1.5- 1.7. Creatinine on admission was 2.32. Monitor for improvement with Lasix IV. # Metabolic acidosis likely due to chronic kidney disease - resumed home sodium bicarb tablets Stable chronic problems affecting care, new non-acute diagnoses: # Chronic hypertension # Hypercholesterolemia # Chronic heart failure with reduced ejection fraction # Nonischemic cardiomyopathy with known EF of 30% PLAN: Start Lasix 60 mg IV twice a day, strict I's and O's and daily weight, consult cardiology, monitor on telemetry, check daily labs, he already got Kayexalate in the ER, will recheck potassium, get CT abdomen without contrast, start him on Protonix orally twice daily, check venous duplex of thelower legs, use Lovenox for DVT prophylaxis, put him on a low-salt diet, please see the rest of theorders for plan of care. -PT/OT eval/increase activity -am labs, replace lytes prn -vitals per routine -home meds as ordered -DVT prophylaxis: [] Lovenox [] Heparin [] SCDs [x] Encourage ambulation [] Already on Anticoagulation -see below for additional orders, further recommendations to follow Orders Placed This Encounter Procedures XR chest 1 view CBC auto differential Comprehensive metabolic panel NT PRO BNP Lipase Serial Troponin, High Sensitivity Troponin, High Sensitivity, Serial, Second Test ECG 12 lead Code status: Prior Please forward a copy of this H&P to the patient's PCP. Thank you. Electronically signed by @[email or web address]@ on @TDNR@ at @NOWNR@ [id number] History and physical note* Serg Celaya MD - 06/13/2024 4:23 PM EST Attending History and Physical Admit Date: 06/13/2024 PCP: No primary care provider on file. CHIEF COMPLAINT: SOB, leg swelling and ongoing abdominal pain History Obtained From: patient and significant other and ER HISTORY OF PRESENT ILLNESS: Carlo is a 44 y.o. male with a past medical history of CKD and CHF who presents to the emergency department for the evaluation of abdominal pain. Also increased leg swelling in the last 2 weeks andshortness of breath as well. As for the abdominal pain, this is not new and has been ongoing. He was seen by surgery a month ago in the hospital and had MRI done of his gallbladder as at that time they thought it might be the gallbladder. Meanwhile outpatient, he already has an appointment to see [place] specialist for this as well. Him and his significant other denies that there is any relation with the pain with eating food. The pain is mainly in the upper mid abdomen. He has never had a CAT scan of his abdomen done yet and also never been scoped. He does look completely comfortable laying in bed in no acute distress. There is no grimacing and no guarding either. He is smiling and able to give a history fine. Meanwhile he is also found to have a BNP of 30,000 along with increased leg swelling in the last 2 weeks. He admits to having shortness of breath as well. He was placed on torsemidea month ago but he told me no way he is taking that. He has a history of noncompliance he with his diuretics as well. Otherwise, currently denies any chest pain. No nausea or vomiting. No fevers or chills. Past Medical History: Past Medical History: Diagnosis Date CHF (congestive heart failure) (HCC) Hypercholesteremia Hypertension Past Surgical History: No past surgical history on file. Family History: Family History Problem Relation Name Age of Onset Heart disease Father Heart disease Brother Medications Prior to Admission: No current facility-administered medications on file prior to encounter. Current Outpatient Medications on File Prior to Encounter Medication Sig Dispense Refill carvedilol (Coreg) 25 MG tablet Take 1 tablet (25 mg) by mouth 2 times daily (with meals). 180 tablet 0 cholecalciferol (Vitamin D-3) 50 MCG (2000 UT) tablet Take 2 tablets (4,000 Units) by mouth daily. 180 tablet 0 clopidogrel (Plavix) 75 MG tablet Take 1 tablet (75 mg) by mouth daily. 90 tablet 0 furosemide (Lasix) 40 MG tablet Take 40 mg by mouth daily. hydrALAZINE (Apresoline) 25 MG tablet Take 1 tablet (25 mg) by mouth 3 times daily. 270 tablet 0 isosorbide dinitrate (Isordil) 20 MG tablet Take 1 tablet (20 mg) by mouth 3 times daily. 270 tablet 0 sodium bicarbonate 650 MG tablet Take 2 tablets (1,300 mg) by mouth 2 times daily. 360 tablet 0 [DISCONTINUED] furosemide (Lasix) 40 MG tablet Take 1 tablet (40 mg) by mouth Daily as needed (Weight gain >2 lbs in 2 days, or increased shortness of breath). 90 tablet 0 Allergies: Patient has no known allergies. Social History: Social History Socioeconomic History Marital status: Single Spouse name: Not on file Number of children: Not on file Years of education: Not on file Highest education level: Not on file Occupational History Not on file Tobacco Use Smoking status: Never Passive exposure: Never Smokeless tobacco: Never Vaping Use Vaping status: Never Used Substance and Sexual Activity Alcohol use: Never Drug use: Never Sexual activity: Yes Partners: Female Other Topics Concern Not on file Social History Narrative Not on file Social Drivers of Health Financial Resource Strain: Low Risk (04/28/2024) Overall Financial Resource Strain (CARDIA) Difficulty of Paying Living Expenses: Not very hard Food Insecurity: No Food Insecurity (04/28/2024) Hunger Vital Sign Worried About Running Out of Food in the Last Year: Never true Ran Out of Food in the Last Year: Never true Transportation Needs: No Transportation Needs (05/28/2024) PRAPARE - Transportation Lack of Transportation (Medical): No Lack of Transportation (Non-Medical): No Physical Activity: Insufficiently Active (04/28/2024) Exercise Vital Sign Days of Exercise per Week: 7 days Minutes of Exercise per Session: 10 min Stress: No Stress Concern Present (04/28/2024) [employer] [place] [place] [employer] - Occupational Stress Questionnaire Feeling of Stress : Not at all Recent Concern: Stress - Stress Concern Present (02/28/2024) [place] [employer] - Occupational Stress Questionnaire Feeling of Stress : To some extent Social Connections: Unknown (04/28/2024) Social Connection and Isolation Panel [NHANES] Frequency of Communication with Friends and Family: Once a week Frequency of Social Gatherings with Friends and Family: Once a week Attends Holiness Services: Patient unable to answer Active Member of Clubs or Organizations: No Attends Club or Organization Meetings: Never Marital Status: Living with partner Intimate Partner Violence: Not At Risk (04/28/2024) Humiliation, Afraid, Rape, and Kick questionnaire Fear of Current or Ex-Partner: No Emotionally Abused: No Physically Abused: No Sexually Abused: No Housing Stability: Low Risk (05/28/2024) Housing Stability Vital Sign Unable to Pay for Housing in the Last Year: No Number of Times Moved in the Last Year: 0 Homeless in the Last Year: No REVIEW OF SYSTEMS: Other than patient's chronic conditions and those complaints in the history above, the rest of the 10 systems review were done and were negative. Vitals: BP 124/87 Pulse 55 Temp 36.4 C (97.5 F) (Temporal) Resp 16 Ht 6' 1 (1.854 m) Wt 180 lb (81.6 kg) SpO2 95% BMI 23.75 kg/m BMI Classification: Normal Weight (BMI 18.5-24.9) Pulse Ox: SpO2 Av.5 % Min: 95 % Max: 96 % Supplemental O2: PHYSICAL EXAM: General appearance: No apparent distress, appears stated age and cooperative with exam. HEENT: Eyes: No scleral icterus Oral: Tongue is semi-moist Cardiovascular: S1/S2 heard, RRR, 4+leg edema Respiratory: Clear to auscultation bilaterally Abdomen: Soft, some pain to palp of upper abd, but no guarding or grimacing, non-distended bowel sounds positive Musculoskeletal: No obvious deformities seen Skin: No visible rashes or lesions. DATA: CBC: Recent Labs 06/13/24 1459 WBC 8.7 RBC 5.05 HGB 16.4 HCT 52.1* MCV 103.2* RDW 14.6 PLT 217 BMP: Recent Labs 06/13/24 1459 NA 142 K 5.7* CL 113* CO2 17* BUN 36* CREATININE 2.32* GLUCOSE 115* CALCIUM 8.7 ANIONGAP 12 LIVER PROFILE: Recent Labs 06/13/24 1459 AST 47* ALT 121* BILITOT 1.5* ALKPHOS 129 PROT 6.0* PT/INR: No results for input(s): PROTIME, INR in the last 72 hours. CARDIAC ENZYMES: No results for input(s): TROPONINI in the last 72 hours. Procalcitonin: No results found for: PROCAL Urine Culture: No results found for this or any previous visit. COVID-19 PCR: No results for input(s): COVID19 in the last 72 hours. I reviewed: [x] laboratory results [x] radiographic results At the time of today's encounter. Pt was advised of the results. IMPRESSION: Acute, acute on chronic, unstable/uncontrolled chronic problems/diagnoses: # Acute on chronic heart failure with reduced ejection fraction exacerbation- Has known EF of 30%. Start IV Lasix twice a day, strict I's and O's and daily weights, consult cardiology to evaluate andmonitor on telemetry # Hyperkalemia-was given Kayexalate in the ER. Also will be getting Lasix as well IV # Ongoing known upper abdominal pain present on admission - check CT abdomen. Meanwhile, patient already has appointment to follow-up with GI outpatient. Trial of protonix bid as well. # Bilateral lower leg swelling-likely related to congestive heart failure exacerbation with fluid overload. Will check venous duplex to rule out DVT # SCHUYLER on CKD stage II-suspect cardiorenal syndrome. Baseline creatinine is 1.5- 1.7. Creatinine on admission was 2.32. Monitor for improvement with Lasix IV. # Metabolic acidosis likely due to chronic kidney disease - resumed home sodium bicarb tablets Stable chronic problems affecting care, new non-acute diagnoses: # Chronic hypertension # Hypercholesterolemia # Chronic heart failure with reduced ejection fraction # Nonischemic cardiomyopathy with known EF of 30% PLAN: Start Lasix 60 mg IV twice a day, strict I's and O's and daily weight, consult cardiology, monitor on telemetry, check daily labs, he already got Kayexalate in the ER, will recheck potassium, get CT abdomen without contrast, start him on Protonix orally twice daily, check venous duplex of thelower legs, use Lovenox for DVT prophylaxis, put him on a low-salt diet, please see the rest of theorders for plan of care. -PT/OT eval/increase activity -am labs, replace lytes prn -vitals per routine -home meds as ordered -DVT prophylaxis: [] Lovenox [] Heparin [] SCDs [x] Encourage ambulation [] Already on Anticoagulation -see below for additional orders, further recommendations to follow Orders Placed This Encounter Procedures XR chest 1 view CBC auto differential Comprehensive metabolic panel NT PRO BNP Lipase Serial Troponin, High Sensitivity Troponin, High Sensitivity, Serial, Second Test ECG 12 lead Code status: Prior Please forward a copy of this H&P to the patient's PCP. Thank you. Electronically signed by @[email or web address]@ on @TDNR@ at @NOWNR@ documented in this [facility]12-15-2024 Emergency department Note* Jono Dubois DO - 06/13/2024 1:45 PM EST EMERGENCY DEPARTMENT ENCOUNTER Pt Name: Carlo Medina Birthdate 1980 Date of evaluation: 06/13/2024 ED Provider: Jono Dubois, DO CHIEF COMPLAINT Chief Complaint Patient presents with Abdominal Pain Leg Swelling HISTORY OF PRESENT ILLNESS (Location/Symptom, Timing/Onset, Context/Setting, Quality, Duration, Modifying Factors, Severity) Note limiting factors. I wore appropriate PPE for the entirety of this encounter. HPI Carlo Medina is a 44 y.o. with a past medical history of CKD and CHF who presents to the emergency department for the evaluation of abdominal pain. Patient explains that he has been having intermittent abdominal pain for the past month that has been getting worse. He has been evaluated multiple times, recently found to have CKD and CHF, most recent MRI 2 weeks ago showed pericholecystic fluid as well. States he is also having bilateral lower extremity swelling, vomiting, decreased appetite. He takes Lasix 40 mg daily. Nursing Notes were reviewed. Limitations to history: None Outside historians: Significant other REVIEW OF SYSTEMS Review of Systems Pertinent positives and negatives as per HPI. PAST MEDICAL HISTORY Past Medical History: Diagnosis Date CHF (congestive heart failure) (HCC) Hypercholesteremia Hypertension SURGICAL HISTORY No past surgical history on file. CURRENT MEDICATIONS Previous Medications CARVEDILOL (COREG) 25 MG TABLET Take 1 tablet (25 mg) by mouth 2 times daily (with meals). CHOLECALCIFEROL (VITAMIN D-3) 50 MCG (2000 UT) TABLET Take 2 tablets (4,000 Units) by mouth daily. CLOPIDOGREL (PLAVIX) 75 MG TABLET Take 1 tablet (75 mg) by mouth daily. FUROSEMIDE (LASIX) 40 MG TABLET Take 40 mg by mouth daily. HYDRALAZINE (APRESOLINE) 25 MG TABLET Take 1 tablet (25 mg) by mouth 3 times daily. ISOSORBIDE DINITRATE (ISORDIL) 20 MG TABLET Take 1 tablet (20 mg) by mouth 3 times daily. SODIUM BICARBONATE 650 MG TABLET Take 2 tablets (1,300 mg) by mouth 2 times daily. ALLERGIES Patient has no known allergies. FAMILY HISTORY Family History Problem Relation Name Age of Onset Heart disease Father Heart disease Brother SOCIAL HISTORY Social History Socioeconomic History Marital status: Single Tobacco Use Smoking status: Never Passive exposure: Never Smokeless tobacco: Never Vaping Use Vaping status: Never Used Substance and Sexual Activity Alcohol use: Never Drug use: Never Sexual activity: Yes Partners: Female Social Drivers of Health Financial Resource Strain: Low Risk (04/28/2024) Overall Financial Resource Strain (CARDIA) Difficulty of Paying Living Expenses: Not very hard Food Insecurity: No Food Insecurity (04/28/2024) Hunger Vital Sign Worried About Running Out of Food in the Last Year: Never true Ran Out of Food in the Last Year: Never true Transportation Needs: No Transportation Needs (05/28/2024) PRAPARE - Transportation Lack of Transportation (Medical): No Lack of Transportation (Non-Medical): No Physical Activity: Insufficiently Active (04/28/2024) Exercise Vital Sign Days of Exercise per Week: 7 days Minutes of Exercise per Session: 10 min Stress: No Stress Concern Present (04/28/2024) [place] [employer] - Occupational Stress Questionnaire Feeling of Stress : Not at all Recent Concern: Stress - Stress Concern Present (02/28/2024) [place] [employer] - Occupational Stress Questionnaire Feeling of Stress : To some extent Social Connections: Unknown (04/28/2024) Social Connection and Isolation Panel [NHANES] Frequency of Communication with Friends and Family: Once a week Frequency of Social Gatherings with Friends and Family: Once a week Attends Holiness Services: Patient unable to answer Active Member of Clubs or Organizations: No Attends Club or Organization Meetings: Never Marital Status: Living with partner Intimate Partner Violence: Not At Risk (04/28/2024) Humiliation, Afraid, Rape, and Kick questionnaire Fear of Current or Ex-Partner: No Emotionally Abused: No Physically Abused: No Sexually Abused: No Housing Stability: Low Risk (05/28/2024) Housing Stability Vital Sign Unable to Pay for Housing in the Last Year: No Number of Times Moved in the Last Year: 0 Homeless in the Last Year: No SCREENINGS PHYSICAL EXAM ED Triage Vitals [06/13/24 1348] Temp Heart Rate Resp BP 36.4 C (97.5 F) 55 16 124/87 SpO2 Temp Source Heart Rate Source Patient Position 96 % Temporal Monitor -- BP Location FiO2 (%) -- -- Physical Exam Vitals and nursing note reviewed. Constitutional: General: He is not in acute distress. Appearance: He is well-developed. He is not ill-appearing, toxic-appearing or diaphoretic. HENT: Head: Normocephalic and atraumatic. Mouth/Throat: Comments: Dry mucous membranes, cracked lips Cardiovascular: Rate and Rhythm: Regular rhythm. Bradycardia present. Heart sounds: Normal heart sounds. Pulmonary: Effort: No respiratory distress. Breath sounds: Rales (bibasilar) present. No wheezing or rhonchi. Comments: Tachypnea Abdominal: Palpations: Abdomen is soft. Tenderness: There is abdominal tenderness in the right upper quadrant, epigastric area and left upper quadrant. There is no right CVA tenderness or left CVA tenderness. Genitourinary: Testes: Right: Swelling present. Left: Swelling present. Tenderness not present. Skin: General: Skin is warm and dry. Capillary Refill: Capillary refill takes less than 2 seconds. Neurological: General: No focal deficit present. Mental Status: He is alert and oriented to person, place, and time. DIAGNOSTIC RESULTS RADIOLOGY (Per Emergency Physician): Interpretation per the Radiologist below, if available at the time of this note: XR chest 1 view Final Result Cardiomegaly with pulmonary vascular congestion. No focal consolidation identified. Report Dictated on Electronically Signed By: Giovani Santacruz MD Electronically Signed Date/Time: 06/13/2024 2:56 PM EST LABS: Labs Reviewed CBC WITH AUTO DIFFERENTIAL - Abnormal Result Value Auto WBC 8.7 RBC 5.05 Hemoglobin 16.4 Hematocrit 52.1 (*) MCV 103.2 (*) MCH 32.5 MCHC 31.5 RDW 14.6 Platelets 217 MPV 10.7 nRBC 0.0 Neutrophils Relative 72.1 Lymphocytes Relative 20.0 Monocytes Relative 7.4 Eosinophils Relative 0.1 Basophils Relative 0.2 Immature Grans % 0.2 Neutrophils Absolute 6.2 Lymphocytes Absolute 1.7 Monocytes Absolute 0.6 Eosinophils Absolute 0.0 Basophils Absolute 0.0 Immature Grans Absolute 0.0 COMPREHENSIVE METABOLIC PANEL - Abnormal SODIUM 142 POTASSIUM 5.7 (*) CHLORIDE 113 (*) CARBON DIOXIDE 17 (*) ANION GAP 12 UREA NITROGEN 36 (*) CREATININE 2.32 (*) GLUCOSE 115 (*) CALCIUM 8.7 AST (SGOT) 47 (*) ALT 121 (*) ALKALINE PHOSPHATASE 129 ALBUMIN 3.1 (*) BILIRUBIN, TOTAL 1.5 (*) TOTAL PROTEIN 6.0 (*) eGFR 34.2 (*) NT PRO BNP - Abnormal NT PRO BNP 30,000 (*) HIGH SENSITIVITY TROPONIN, SERIAL BASELINE - Abnormal Troponin HS, Serial Baseline 50 (*) LIPASE - Normal LIPASE 21 HIGH SENSITIVITY TROPONIN, SERIAL, SECOND TEST All other labs were within normal range or not returned as of this dictation. EMERGENCY DEPARTMENT COURSE and DIFFERENTIAL DIAGNOSIS/MDM: Vitals: Vitals: 06/13/24 1348 06/13/24 1509 06/13/24 1645 BP: 124/87 105/80 BP Location: Left arm Patient Position: Lying Pulse: 55 106 Resp: 16 19 Temp: 36.4 C (97.5 F) TempSrc: Temporal SpO2: 96% 95% 93% Weight: 81.6 kg (180 lb) Height: 1.854 m (6' 1) The patient presented with a chief complaint of abdominal pain, dyspnea on exertion, bilateral leg swelling. The differential diagnosis associated with this patient's presentation includes CHF exacerbation, biliary etiology, pancreatitis, pneumonia. Our workup consisted of ordering/reviewing basic labs, lipase, BNP, cardiac workup. Patient given Zofran and morphine for symptom relief. Initial vitals significant for bradycardia but otherwise stable on room air. Workup significant for elevated BNP of 30,000, increased from previous BNP of 19,900 from 2 weeks ago. My interpretation of chest x-ray is pulmonary congestion without pleural effusion or consolidation. Cardiomegaly. Lipase within normal limits. Troponin elevated, will get a repeat. EKG with peakedT waves, potassium 5.7. We gave calcium chloride for cardiac stabilization, Lasix 40 mg, Lokelma packet. Patient also has transaminitis and elevated creatinine decreased GFR consistent with known CKD. I discussed the patient's case with the hospitalist, Dr. Celaya, who will admit the patient to his service for CHF exacerbation. Diagnoses as of 06/13/24 1700 Acute exacerbation of chronic heart failure (HCC) ED Medications managed: Medications ondansetron (Zofran) injection 8 mg (8 mg IntraVENous Given 06/13/24 1504) morphine injection 2 mg (2 mg IntraVENous Given 06/13/24 1504) calcium chloride 10 % injection 1 g (1 g IntraVENous Given 06/13/24 1635) furosemide (Lasix) injection 40 mg (40 mg IntraVENous Given 06/13/24 163) sodium zirconium cyclosilicate (Lokelma) packet 10 g (10 g Oral Given 06/13/24 1635) PROCEDURES: Unless otherwise noted below, none Procedures FINAL IMPRESSION 1. Acute exacerbation of chronic heart failure (HCC) DISPOSITION Admit 06/13/2024 04:24:09 PM PATIENT REFERRED TO: No follow-up provider specified. DISCHARGE MEDICATIONS: New Prescriptions No medications on file (Comment: Please note this report has been produced using speech recognition software and may contain errors related to that system including errors in grammar, punctuation, and spelling, as well as words and phrases that may be inappropriate. If there are any questions or concerns please feel freeto contact the dictating provider for clarification.) Jono Dubois DO (electronically signed) Emergency Medicine Provider Jono Dubois DO Resident 06/13/24 1700 Cosigned by Joel Reyes MD at 06/14/2024 2:47 PM EST * Joel Reyes MD - 06/13/2024 1:45 PM EST Emergency Department Encounter [facility] PCU 2E Patient: Carlo Medina : 1980 Date of Evaluation: 06/13/2024 ED Supervising Physician: Joel Reyes MD I personally evaluated Carlo Medina and made/approved the management plan and take responsibilityfor the patient management. This will serve as my Supervisory note and shared attestation. I did perform a substantive portion of the visit including all aspects of the Medical Decision Making. I wore appropriate PPE for the entirety of this encounter. In brief, Carlo Medina is a 44 y.o. that presents to the emergency department shortness of breath, dyspnea on exertion generalized weakness Focused exam: Heart regular rate and rhythm lungs with bibasilar rales, pitting edema lower extremities. Brief ED course/MDM: Patient with significantly reduced EF with findings consistent with CHF exacerbation. Patient's blood pressure is also marginal. Will continue to monitor closely provide a small diuretic and admit for further evaluation and treatment. Diagnostics interpreted by me: I personally discussed the patient's management with other clinicians: All diagnostic, treatment, and disposition decisions were made by myself in conjunction with the Resident. I also supervised reardon portions of any procedures performed by the Resident. For all further details of the patient's emergency department visit, please see their documentation. (Comment: Please note this report has been produced using speech recognition software and may contain errors related to that system including errors in grammar, punctuation, and spelling, as well as words and phrases that may be inappropriate. If there are any questions or concerns please feel freeto contact the dictating provider for clarification.) Joel Reyes MD [facility] Joel Reyes MD 06/14/24 1447 * Rosa Gr RN - 06/13/2024 1:45 PM EST Pt presents for abdominal pain starting yesterday. States he vomited earlier today. Denies diarrhea. Also having loss of appetite. Denies urinary symptoms. Also having swelling in BLE x2 weeks. Hx CHF. +fatigue documented in this [facility]12-15-2024 Emergency department Triage note* Rosa Gr RN - 06/13/2024 1:45 PM EST Pt presents for abdominal pain starting yesterday. States he vomited earlier today. Denies diarrhea. Also having loss of appetite. Denies urinary symptoms. Also having swelling in BLE x2 weeks. Hx CHF. +fatigue [id number] Emergency [facility] Note* Jono Dubois DO - 06/13/2024 1:45 PM EST EMERGENCY DEPARTMENT ENCOUNTER Pt Name: Carlo Medina Birthdate 1980 Date of evaluation: 06/13/2024 ED Provider: Jono Dubois DO CHIEF COMPLAINT Chief Complaint Patient presents with Abdominal Pain Leg Swelling HISTORY OF PRESENT ILLNESS (Location/Symptom, Timing/Onset, Context/Setting, Quality, Duration, Modifying Factors, Severity) Note limiting factors. I wore appropriate PPE for the entirety of this encounter. HPI Carlo Medina is a 44 y.o. with a past medical history of CKD and CHF who presents to the emergency department for the evaluation of abdominal pain. Patient explains that he has been having intermittent abdominal pain for the past month that has been getting worse. He has been evaluated multiple times, recently found to have CKD and CHF, most recent MRI 2 weeks ago showed pericholecystic fluid as well. States he is also having bilateral lower extremity swelling, vomiting, decreased appetite. He takes Lasix 40 mg daily. Nursing Notes were reviewed. Limitations to history: None Outside historians: Significant other REVIEW OF SYSTEMS Review of Systems Pertinent positives and negatives as per HPI. PAST MEDICAL HISTORY Past Medical History: Diagnosis Date CHF (congestive heart failure) (HCC) Hypercholesteremia Hypertension SURGICAL HISTORY No past surgical history on file. CURRENT MEDICATIONS Previous Medications CARVEDILOL (COREG) 25 MG TABLET Take 1 tablet (25 mg) by mouth 2 times daily (with meals). CHOLECALCIFEROL (VITAMIN D-3) 50 MCG (2000 UT) TABLET Take 2 tablets (4,000 Units) by mouth daily. CLOPIDOGREL (PLAVIX) 75 MG TABLET Take 1 tablet (75 mg) by mouth daily. FUROSEMIDE (LASIX) 40 MG TABLET Take 40 mg by mouth daily. HYDRALAZINE (APRESOLINE) 25 MG TABLET Take 1 tablet (25 mg) by mouth 3 times daily. ISOSORBIDE DINITRATE (ISORDIL) 20 MG TABLET Take 1 tablet (20 mg) by mouth 3 times daily. SODIUM BICARBONATE 650 MG TABLET Take 2 tablets (1,300 mg) by mouth 2 times daily. ALLERGIES Patient has no known allergies. FAMILY HISTORY Family History Problem Relation Name Age of Onset Heart disease Father Heart disease Brother SOCIAL HISTORY Social History Socioeconomic History Marital status: Single Tobacco Use Smoking status: Never Passive exposure: Never Smokeless tobacco: Never Vaping Use Vaping status: Never Used Substance and Sexual Activity Alcohol use: Never Drug use: Never Sexual activity: Yes Partners: Female Social Drivers of Health Financial Resource Strain: Low Risk (04/28/2024) Overall Financial Resource Strain (CARDIA) Difficulty of Paying Living Expenses: Not very hard Food Insecurity: No Food Insecurity (04/28/2024) Hunger Vital Sign Worried About Running Out of Food in the Last Year: Never true Ran Out of Food in the Last Year: Never true Transportation Needs: No Transportation Needs (05/28/2024) PRAPARE - Transportation Lack of Transportation (Medical): No Lack of Transportation (Non-Medical): No Physical Activity: Insufficiently Active (04/28/2024) Exercise Vital Sign Days of Exercise per Week: 7 days Minutes of Exercise per Session: 10 min Stress: No Stress Concern Present (04/28/2024) [employer] [place] [employer] - Occupational Stress Questionnaire Feeling of Stress : Not at all Recent Concern: Stress - Stress Concern Present (02/28/2024) [employer] [place] [employer] - Occupational Stress Questionnaire Feeling of Stress : To some extent Social Connections: Unknown (04/28/2024) Social Connection and Isolation Panel [NHANES] Frequency of Communication with Friends and Family: Once a week Frequency of Social Gatherings with Friends and Family: Once a week Attends Holiness Services: Patient unable to answer Active Member of Clubs or Organizations: No Attends Club or Organization Meetings: Never Marital Status: Living with partner Intimate Partner Violence: Not At Risk (04/28/2024) Humiliation, Afraid, Rape, and Kick questionnaire Fear of Current or Ex-Partner: No Emotionally Abused: No Physically Abused: No Sexually Abused: No Housing Stability: Low Risk (05/28/2024) Housing Stability Vital Sign Unable to Pay for Housing in the Last Year: No Number of Times Moved in the Last Year: 0 Homeless in the Last Year: No SCREENINGS PHYSICAL EXAM ED Triage Vitals [06/13/24 1348] Temp Heart Rate Resp BP 36.4 C (97.5 F) 55 16 124/87 SpO2 Temp Source Heart Rate Source Patient Position 96 % Temporal Monitor -- BP Location FiO2 (%) -- -- Physical Exam Vitals and nursing note reviewed. Constitutional: General: He is not in acute distress. Appearance: He is well-developed. He is not ill-appearing, toxic-appearing or diaphoretic. HENT: Head: Normocephalic and atraumatic. Mouth/Throat: Comments: Dry mucous membranes, cracked lips Cardiovascular: Rate and Rhythm: Regular rhythm. Bradycardia present. Heart sounds: Normal heart sounds. Pulmonary: Effort: No respiratory distress. Breath sounds: Rales (bibasilar) present. No wheezing or rhonchi. Comments: Tachypnea Abdominal: Palpations: Abdomen is soft. Tenderness: There is abdominal tenderness in the right upper quadrant, epigastric area and left upper quadrant. There is no right CVA tenderness or left CVA tenderness. Genitourinary: Testes: Right: Swelling present. Left: Swelling present. Tenderness not present. Skin: General: Skin is warm and dry. Capillary Refill: Capillary refill takes less than 2 seconds. Neurological: General: No focal deficit present. Mental Status: He is alert and oriented to person, place, and time. DIAGNOSTIC RESULTS RADIOLOGY (Per Emergency Physician): Interpretation per the Radiologist below, if available at the time of this note: XR chest 1 view Final Result Cardiomegaly with pulmonary vascular congestion. No focal consolidation identified. Report Dictated on Electronically Signed By: Giovani Santacruz MD Electronically Signed Date/Time: 06/13/2024 2:56 PM EST LABS: Labs Reviewed CBC WITH AUTO DIFFERENTIAL - Abnormal Result Value Auto WBC 8.7 RBC 5.05 Hemoglobin 16.4 Hematocrit 52.1 (*) MCV 103.2 (*) MCH 32.5 MCHC 31.5 RDW 14.6 Platelets 217 MPV 10.7 nRBC 0.0 Neutrophils Relative 72.1 Lymphocytes Relative 20.0 Monocytes Relative 7.4 Eosinophils Relative 0.1 Basophils Relative 0.2 Immature Grans % 0.2 Neutrophils Absolute 6.2 Lymphocytes Absolute 1.7 Monocytes Absolute 0.6 Eosinophils Absolute 0.0 Basophils Absolute 0.0 Immature Grans Absolute 0.0 COMPREHENSIVE METABOLIC PANEL - Abnormal SODIUM 142 POTASSIUM 5.7 (*) CHLORIDE 113 (*) CARBON DIOXIDE 17 (*) ANION GAP 12 UREA NITROGEN 36 (*) CREATININE 2.32 (*) GLUCOSE 115 (*) CALCIUM 8.7 AST (SGOT) 47 (*) ALT 121 (*) ALKALINE PHOSPHATASE 129 ALBUMIN 3.1 (*) BILIRUBIN, TOTAL 1.5 (*) TOTAL PROTEIN 6.0 (*) eGFR 34.2 (*) NT PRO BNP - Abnormal NT PRO BNP 30,000 (*) HIGH SENSITIVITY TROPONIN, SERIAL BASELINE - Abnormal Troponin HS, Serial Baseline 50 (*) LIPASE - Normal LIPASE 21 HIGH SENSITIVITY TROPONIN, SERIAL, SECOND TEST All other labs were within normal range or not returned as of this dictation. EMERGENCY DEPARTMENT COURSE and DIFFERENTIAL DIAGNOSIS/MDM: Vitals: Vitals: 06/13/24 1348 06/13/24 1509 06/13/24 1645 BP: 124/87 105/80 BP Location: Left arm Patient Position: Lying Pulse: 55 106 Resp: 16 19 Temp: 36.4 C (97.5 F) TempSrc: Temporal SpO2: 96% 95% 93% Weight: 81.6 kg (180 lb) Height: 1.854 m (6' 1) The patient presented with a chief complaint of abdominal pain, dyspnea on exertion, bilateral leg swelling. The differential diagnosis associated with this patient's presentation includes CHF exacerbation, biliary etiology, pancreatitis, pneumonia. Our workup consisted of ordering/reviewing basic labs, lipase, BNP, cardiac workup. Patient given Zofran and morphine for symptom relief. Initial vitals significant for bradycardia but otherwise stable on room air. Workup significant for elevated BNP of 30,000, increased from previous BNP of 19,900 from 2 weeks ago. My interpretation of chest x-ray is pulmonary congestion without pleural effusion or consolidation. Cardiomegaly. Lipase within normal limits. Troponin elevated, will get a repeat. EKG with peakedT waves, potassium 5.7. We gave calcium chloride for cardiac stabilization, Lasix 40 mg, Lokelma packet. Patient also has transaminitis and elevated creatinine decreased GFR consistent with known CKD. I discussed the patient's case with the hospitalist, Dr. Celaya, who will admit the patient to his service for CHF exacerbation. Diagnoses as of 06/13/24 1700 Acute exacerbation of chronic heart failure (HCC) ED Medications managed: Medications ondansetron (Zofran) injection 8 mg (8 mg IntraVENous Given 06/13/24 1504) morphine injection 2 mg (2 mg IntraVENous Given 06/13/24 1504) calcium chloride 10 % injection 1 g (1 g IntraVENous Given 06/13/24 1635) furosemide (Lasix) injection 40 mg (40 mg IntraVENous Given 06/13/24 1635) sodium zirconium cyclosilicate (Lokelma) packet 10 g (10 g Oral Given 06/13/24 1635) PROCEDURES: Unless otherwise noted below, none Procedures FINAL IMPRESSION 1. Acute exacerbation of chronic heart failure (HCC) DISPOSITION Admit 06/13/2024 04:24:09 PM PATIENT REFERRED TO: No follow-up provider specified. DISCHARGE MEDICATIONS: New Prescriptions No medications on file (Comment: Please note this report has been produced using speech recognition software and may contain errors related to that system including errors in grammar, punctuation, and spelling, as well as words and phrases that may be inappropriate. If there are any questions or concerns please feel freeto contact the dictating provider for clarification.) Jono Dubois DO (electronically signed) Emergency Medicine Provider Jono Dubois DO Resident 06/13/24 1700 Cosigned by Joel Reyes MD at 06/14/2024 2:47 PM EST [employer] Phone: [phone] 770-852712-15-2024 Physician Emergency department Note* Joel Reyes MD - 06/13/2024 1:45 PM EST Emergency Department Encounter [facility] PCU 2E Patient: Carlo Medina : 1980 Date of Evaluation: 06/13/2024 ED Supervising Physician: Joel Reyes MD I personally evaluated Carlo Medina and made/approved the management plan and take responsibilityfor the patient management. This will serve as my Supervisory note and shared attestation. I did perform a substantive portion of the visit including all aspects of the Medical Decision Making. I wore appropriate PPE for the entirety of this encounter. In brief, Carlo Medina is a 44 y.o. that presents to the emergency department shortness of breath, dyspnea on exertion generalized weakness Focused exam: Heart regular rate and rhythm lungs with bibasilar rales, pitting edema lower extremities. Brief ED course/MDM: Patient with significantly reduced EF with findings consistent with CHF exacerbation. Patient's blood pressure is also marginal. Will continue to monitor closely provide a small diuretic and admit for further evaluation and treatment. Diagnostics interpreted by me: I personally discussed the patient's management with other clinicians: All diagnostic, treatment, and disposition decisions were made by myself in conjunction with the Resident. I also supervised reardon portions of any procedures performed by the Resident. For all further details of the patient's emergency department visit, please see their documentation. (Comment: Please note this report has been produced using speech recognition software and may contain errors related to that system including errors in grammar, punctuation, and spelling, as well as words and phrases that may be inappropriate. If there are any questions or concerns please feel freeto contact the dictating provider for clarification.) Joel Reyes MD [employer] Joel Reyes MD 06/14/24 1446 [employer] Work Phone: [phone] Telephone encounter Note* Telephone Encounter - THOMAS Mi CNP - 06/10/2024 11:44 AM EST I called and spoke to patient. He states he has continued swelling in his legs, he admits that he does not weigh himself daily, denies specific symptoms of shortness of breath including orthopnea. Hehas continued chronic kidney disease, mildly elevated potassium at his last BMP June 08. He agrees to have a repeat BMP Friday or Friday of next week for reassessment after starting Lasix 40 mg daily. While in the hospital recently he was found to have evidence of cholecystitis on ultrasound. He is scheduled to establish with gastroenterology June 14, I did remind him of this appointment. He has scheduled office appointment with Dr. Zhang July 01, 2023 for continued evaluation. [employer]12-12-2024 Miscellaneous Notes* Telephone Encounter - THOMAS Mi CNP - 06/10/2024 11:44 AM EST I called and spoke to patient. He states he has continued swelling in his legs, he admits that he does not weigh himself daily, denies specific symptoms of shortness of breath including orthopnea. Hehas continued chronic kidney disease, mildly elevated potassium at his last BMP June 08. He agrees to have a repeat BMP Friday or Friday of next week for reassessment after starting Lasix 40 mg daily. While in the hospital recently he was found to have evidence of cholecystitis on ultrasound. He is scheduled to establish with gastroenterology June 14, I did remind him of this appointment. He has scheduled office appointment with Dr. Zhang July 01, 2023 for continued evaluation. * Telephone Encounter - Sue Felipe - 06/10/2024 10:37 AM EST Pt called in stating he's been having stomach pains on and off yesterday and wants to know what he should do. He also states he is still having swelling in his feet and ankles. documented in this [facility]12-12-2024 Telephone encounter Note* Telephone Encounter - Sue Felipe - 06/10/2024 10:37 AM EST Pt called in stating he's been having stomach pains on and off yesterday and wants to know what he should do. He also states he is still having swelling in his feet and ankles. [id number] History of Present illness Narrative* THOMAS Mi CNP - 06/08/2024 9:30 AM EST Images from the original note were not included. [facility] Card[facility] Office Note DATE of SERVICE: 06/08/24 TIME of SERVICE: 11:12 AM Reason for Visit: Chief Complaint Patient presents with Hospital Follow-up History ofPresent Illness: Carlo Medina is a 44 y.o. male who presents in office today after his admission to [facility] 05/28/2024-06/01/2024. He has a history of newly diagnosed heart failure reduced EF, felt likelyto be consistent with nonischemic cardiomyopathy, last EF measured 30% per transthoracic echo February 29, 2024, with known moderate mitral regurgitation as well as probable chronic kidney disease. He recently presented with nausea, vomiting, had admittedly discontinued his torsemide outpatient. Hewas actually felt to be dehydrated on admission, after but he was given IV fluids became mildly volume overloaded. Ultimately he was recommended to take Lasix on an as-needed basis. He states since being home from the hospital he has been more swollen. He appears to be volume overloaded today. I advise he start taking Lasix 40 mg daily as opposed to as needed. I have ordered a BMP today, and again in 1 week. I like to have him come back to the office within 2 weeks for repeat close evaluation. While admitted he also had elevated liver enzymes, this is continues to be evaluated per his PCP. His lack of insurance is post to be a barrier to care, he is recommended to be scheduled for an outpatient HIDA scan. His girlfriend states they do have an appointment to discuss potential insurance coverage. He denies chest pain, he has had no nausea, vomiting, abdominal pain. Past Medical History: Past Medical History: Diagnosis Date CHF (congestive heart failure) (HCC) Hypercholesteremia Hypertension Past Surgical History History reviewed. No pertinent surgical history. Family History Family History Problem Relation Name Age of Onset Heart disease Father Heart disease Brother Social History Social History Tobacco Use Smoking status: Never Passive exposure: Never Smokeless tobacco: Never Vaping Use Vaping status: Never Used Substance Use Topics Alcohol use: Never Drug use: Never Allergies: No Known Allergies Medications: Current Outpatient Medications: carvedilol (Coreg) 25 MG tablet, Take 1 tablet (25 mg) by mouth 2 times daily (with meals)., Disp: 180 tablet, Rfl: 0 cholecalciferol (Vitamin D-3) 50 MCG (2000 UT) tablet, Take 2 tablets (4,000 Units) by mouth daily., Disp: 180 tablet, Rfl: 0 clopidogrel (Plavix) 75 MG tablet, Take 1 tablet (75 mg) by mouth daily., Disp: 90 tablet, Rfl: 0 furosemide (Lasix) 40 MG tablet, Take 40 mg by mouth daily., Disp: , Rfl: hydrALAZINE (Apresoline) 25 MG tablet, Take 1 tablet (25 mg) by mouth 3 times daily., Disp: 270 tablet, Rfl: 0 isosorbide dinitrate (Isordil) 20 MG tablet, Take 1 tablet (20 mg) by mouth 3 times daily., Disp: 270 tablet, Rfl: 0 sodium bicarbonate 650 MG tablet, Take 2 tablets (1,300 mg) by mouth 2 times daily., Disp: 360 tablet, Rfl: 0 Review of Systems: Review of Systems Constitutional: Negative for activity change, chills, diaphoresis, fatigue and fever. Pt states he has been more swollen and more SOB with exertion, denies orthopnea HENT: Negative for nosebleeds and trouble swallowing. Eyes: Negative for discharge and visual disturbance. Respiratory: Negative for apnea, cough, chest tightness, shortness of breath and wheezing. Comfortable at rest Cardiovascular: Positive for leg swelling. Negative for chest pain and palpitations. Denies chest pain and palpitations Gastrointestinal: Negative for abdominal distention, abdominal pain, blood in stool, diarrhea, nausea and vomiting. Endocrine: Negative for cold intolerance and heat intolerance. Genitourinary: Negative for hematuria. Musculoskeletal: Negative for gait problem and myalgias. Skin: Negative for color change and rash. Neurological: Negative for dizziness, seizures, syncope, facial asymmetry, speech difficulty, weakness, light-headedness, numbness and headaches. Denies dizziness or light headedness Hematological: Does not bruise/bleed easily. Psychiatric/Behavioral: Negative for dysphoric mood. Physical Examination: Vitals: BP (!) 124/100 (BP Location: Left arm, Patient Position: Sitting, BP Cuff Size: Adult) Pulse (!) 117 Ht 6' 1 (1.854 m) Wt 182 lb 3.2 oz (82.6 kg) SpO2 98% BMI 24.04 kg/m Body mass index is 24.04 kg/m . Physical Exam Constitutional: Appearance: Normal appearance. Comments: Appears decompensated HENT: Head: Normocephalic. Eyes: General: Right eye: No discharge. Left eye: No discharge. Neck: Comments: No JVD Cardiovascular: Rate and Rhythm: Regular rhythm. Tachycardia present. Heart sounds: No murmur heard. Comments: Regular, heart rate elevated, has not taken his medication today Pulmonary: Effort: Pulmonary effort is normal. Breath sounds: Normal breath sounds. No wheezing or rales. Comments: Clear t/o Abdominal: General: Bowel sounds are normal. There is no distension. Palpations: Abdomen is soft. Musculoskeletal: Cervical back: Neck supple. Right lower leg: Edema present. Left lower leg: Edema present. Comments: 1+ pitting edema present BLE, knees down Skin: General: Skin is warm. Findings: No erythema or rash. Neurological: Mental Status: He is alert and oriented to person, place, and time. Psychiatric: Behavior: Behavior normal. Laboratory Tests: Lab Results Component Value Date GLUCOSE 113 (H) 06/01/2024 CALCIUM 8.7 06/01/2024 NA 138 06/01/2024 K 4.7 06/01/2024 CO2 22 06/01/2024 CL 109 (H) 06/01/2024 BUN 37 (H) 06/01/2024 CREATININE 2.05 (H) 06/01/2024 Lab Results Component Value Date CHOL 172 02/29/2024 Lab Results Component Value Date TRIG 88 02/29/2024 Lab Results Component Value Date HDL 28 (L) 02/29/2024 Lab Results Component Value Date LDLCALC 126 (H) 02/29/2024 No results found for: VLDL Lab Results Component Value Date CHOLHDLRATIO 6 02/29/2024 Other Testing: Cardiac Tests: Echo (date: 02/29/2024): Left Ventricle: Left ventricle is mildly dilated. Mildly increased wall thickness. Mild septal thickening. Moderately reduced left ventricular systolic function. EF by 2D Simpsons Biplane is 30%. Global longitudinal strain is -7.1%. Severe global hypokinesis present. Grade II diastolic dysfunction with increased LAP. Right Ventricle: Right ventricle size is normal. Normal systolic function. TAPSE is 2.5 cm. Aortic Valve: No stenosis. AV mean gradient is 3 mmHg. AV peak velocity is 1.2 m/s. LVOT:AV VTI Index is 0.76. Mitral Valve: Moderate (2+) regurgitation. Tricuspid Valve: RVSP is 23 mmHg. Left Atrium: Left atrium is moderately dilated. LA Vol Index A/L is 42 mL/m2. Aorta: Normal sized sinuses of Valsalva and ascending aorta. Sinuses of Valsalva diameter is 3.2 cm. Ao ascending diameter is 3.3 cm. IVC/SVC: IVC diameter is normal and decreases greater than 50% during inspiration; therefore the estimated right atrial pressure is normal (~3 mmHg). Assessment and Plan: 1. Heart failure reduced EF-felt likely to be attributed to nonischemic cardiomyopathy-EF 30% per transthoracic echo February 2024-appears decompensated, [place] [employer] functional class III, stage C -I advise he start taking Lasix 40 mg daily as opposed to as needed -I have ordered a BMP as well as hepatic panel today, and again in 1 week to document stability -Will continue present guideline directed therapy including carvedilol 25 mg twice daily, hydralazine 25 mg and isosorbide 20 mg 3 times daily. -He admits that he has not yet taken his morning medication, will continue off LUCRECIA, ARB, Arni in the setting of chronic kidney disease. Will await lab results to guide continued medication recommendations. -I would like to have him come back to the office in 1 to 2 weeks for repeat close evaluation, and discussed continued testing recommendations. 2. Chronic kidney disease-creatinine measured 2.05, BUN 37 May 3, this appears to be his baseline over the last several weeks. -Will await repeat blood work, he would likely also benefit from nephrology consultation 3. Hypertension, diastolic-this is likely consistent with fluid volume overload today. He also has not yet taken his morning medication. I asked that he do his best to please bring his medication bottles with him to his next scheduled appointment, and take medications prior to his appointment. 4. Elevated liver enzymes-as outlined above I ordered hepatic panel today, and again in 1 week. This likely is multifactorial in the setting of hepatic congestion, he also had abdominal ultrasound findings while admitted concerning for cholecystitis-he is to be scheduled for an outpatient HIDA scan. Patient's lack of insurance has posed to be a barrier to care 5. Follow-up-2 weeks and as needed. If he is not feeling significantly improved over the next 2 to 3 days, I also asked that he please notify our office. Morgan Ulloa APRN/VIKKI documented in this [facility]12-10-2024 Miscellaneous Notes* Addendum Note - Radha Hernandez - 06/08/2024 9:30 AM ESTAddended by: RADHA HERNANDEZ on: 06/08/2024 12:19 PM Modules accepted: Orders documented in this [facility]12-10-2024 Note* Addendum Note - Radha Hernandez - 06/08/2024 9:30 AM ESTAddended by: RADHA HERNANDEZ on: 06/08/2024 12:19 PM Modules accepted: Orders [place] [id number] Note* Addendum Note - Radha Hernandez - 06/08/2024 9:30 AM ESTAddended by: RADHA HERNANDEZ on: 06/08/2024 12:19 PM Modules accepted: Orders [id number] Telephone encounter Note* Telephone Encounter - Tracy Harris - 06/07/2024 9:53 AM EST Patient unable to pay the 50% at time of appt due to declined hcap and no health insurance. [place] [id number] Miscellaneous Notes* Telephone Encounter - Tracy Harris - 06/07/2024 9:53 AM EST Patient unable to pay the 50% at time of appt due to declined hcap and no health insurance. documented in this [facility]12-06-2024 Telephone encounter Note* Telephone Encounter - Sintia Sosa LPN - 06/04/2024 4:04 PM EST Spoke with the patient and he does not have health insurance nor does he qualify for medicaid or hospital judie per his girlfriend. He has a follow-up appt with cardio on 2023. I did give them the phone number for Teri Santos. [place] [id number] Miscellaneous Notes* Telephone Encounter - Sintia Sosa LPN - 06/04/2024 4:04 PM EST Spoke with the patient and he does not have health insurance nor does he qualify for medicaid or hospital judie per his girlfriend. He has a follow-up appt with cardio on 2023. I did give them the phone number for Teri Santos. * Telephone Encounter - Kaitlin Gonzalez LPN - 06/04/2024 7:38 AM EST Please contact patient to schedule. * Telephone Encounter - Lore Sarah RN - 06/03/2024 8:20 PM EST Pt needs to establish care with a PCP for an ED follow-up visit as soon as possible for LLE edema. Pt does not have insurance. Message sent to [facility] to follow-up with patient during office hours for scheduling assistance. documented in this [id number] Telephone encounter Note* Telephone Encounter - Kaitlin Gonzalez LPN - 06/04/2024 7:38 AM EST Please contact patient to schedule. [place] [id number] Emergency department Note* Louise Wakefield RN - 06/03/2024 10:03 PM EST This RN asked if pt wanted to come back into triage to have lucrecia wrap placed. Significant other said, I'll put it on. Pt and significant other left. [id number] Emergency department Note* Louise Wakefield RN - 06/03/2024 10:03 PM EST This RN asked if pt wanted to come back into triage to have lucrecia wrap placed. Significant other said, I'll put it on. Pt and significant other left. * Belkys Townsend RN - 06/03/2024 6:28 PM EST Pt presents to ED for c/o Bilateral leg swelling since yesterday and was recently diagnosed and admitted for CHF and stage 3 kidney disease documented in this [facility]12-05-2024 Hospital Discharge instructions* Discharge Instructions* Jia Victor PA-C - 06/03/2024 9:01 PM EST Please follow-up with your radar engineer on the as scheduled. You will be receiving a call fromthe scheduling center to schedule a follow-up appointment with primary care. You have received an order to obtain an outpatient ultrasound of the left lower extremity to rule out DVT but you have also been treated here in the ED with Lovenox. Please follow-up to obtain this ultrasound. Return to the ED for any new or worsening symptoms such as standing shortness of breath In the medical field, there is always a level of diagnostic uncertainty, even if this uncertainty is low. For this reason, it is important to immediately return to the emergency department if you have any new symptoms, worsening symptoms, change of symptoms, or if you have any other concerns. We would be happy to re- evaluate you. Otherwise, please take your medications as prescribed and follow-upas recommended. documented in this [facility]12-05-2024 Telephone encounter Note* Telephone Encounter - Lore Sarah RN - 06/03/2024 8:20 PM EST Pt needs to establish care with a PCP for an ED follow-up visit as soon as possible for LLE edema. Pt does not have insurance. Message sent to [facility] to follow-up with patient during office hours for scheduling assistance. [id number] Emergency department Triage note* Belkys Townsend RN - 06/03/2024 6:28 PM EST Pt presents to ED for c/o Bilateral leg swelling since yesterday and was recently diagnosed and admitted for CHF and stage 3 kidney disease [id number] Telephone encounter Note* Telephone Encounter - Kaitlin Gonzalez LPN - 06/03/2024 10:04 AM EST S: Patient admitted to: [facility] 05/28/24 B: Discharged on : 06/01/24 A: Hospital follow up call initiated to discuss any medication changes, follow up appointments and discharge instructions: Metabolic acidosis R: No contact x 1 at : [phone] [id number] Miscellaneous Notes* Telephone Encounter - Kaitlin Gonzalez LPN - 06/03/2024 10:04 AM EST S: Patient admitted to: [facility] 05/28/24 B: Discharged on : 06/01/24 A: Hospital follow up call initiated to discuss any medication changes, follow up appointments and discharge instructions: Metabolic acidosis R: No contact x 1 at : [phone] documented in this [facility]12-04-2024 Telephone encounter Note* Telephone Encounter - Kalyn Street - 06/02/2024 6:54 PM EST Name of caller: Carlo Contact phone number: [phone] Relationship to Patient: patient Provider: Morgan Ulloa CNP Practice: Cardiology Chief Complaint/Reason for Call: Patient returning call from office. Please call and advise. Best time of day caller can be reached: AM Patient advised that office/PCP has 24-48 business hours to return their call: No [id number] Miscellaneous Notes* Telephone Encounter - Kalyn Jad - 06/02/2024 6:54 PM EST Name of caller: Carlo Contact phone number: [phone] Relationship to Patient: patient Provider: Morgan Ulloa CNP Practice: Cardiology Chief Complaint/Reason for Call: Patient returning call from office. Please call and advise. Best time of day caller can be reached: AM Patient advised that office/PCP has 24-48 business hours to return their call: No documented in this [facility]12-03-2024 Nurse Note* More Rojas RN - 06/01/2024 4:40 PM EST Patient discharged to home with all belongings. Iv was removed and heart monitor returned to nursing station. Discahrge paper work reviewed with patient, all questions answered. Patient reluctant to follow up at the offices in [place]. He is agreeable to follow up in [place] if he gets insurance. He was instructed to call for surgical, cardiac, and primary care appointments after discharge. He was also agreeable to berry picker his new prescripts if they are affordable. [id number] Nurse Note* More Rojas RN - 06/01/2024 4:40 PM EST Patient discharged to home with all belongings. Iv was removed and heart monitor returned to nursing station. Discahrge paper work reviewed with patient, all questions answered. Patient reluctant to follow up at the offices in [place]. He is agreeable to follow up in [place] if he gets insurance. He was instructed to call for surgical, cardiac, and primary care appointments after discharge. He was also agreeable to berry picker his new prescripts if they are affordable. * More Rojas RN - 06/01/2024 10:41 AM EST At this time, the patient is refusing to have labs completed, as well as stating that he will not be willing to stay over night for the HIDA scan. Nuclear med will not have a dose available to complete the testing until tomorrow. Dr. Brito is aware that they will not be able to perform the test.Patient is stating that he will be leaving tonight, regardless of if he is discharged or not. * Kira Santos RN - 05/31/2024 9:40 AM EST Patient refused morning labs, RN explained reasoning behind wanting daily labs. Patient refused VitD as it was a gel cap and unable to be crushed. Patient states he cannot swallow pills and all mustbe crushed. RN attempted to educate patient on his labs and how important it is to take medication and how it pertains to his current state of health. Patient does not engage or state any understanding. He is concerned about cost of medications and how many he is on. * King Jackson RN - 05/30/2024 9:50 AM EST Pt expressing reluctance to take meds. This nurse did address pt concerns re: importance of adhering to med schedule, the purpose of each med, and how it affects condition. Pt states, I didn't come here for heart med lecture, nobody is addressing the lack of appetite. Pt did eat breakfast, deniesdysphagia, nausea, state, just don't taste good.Pt reassured concerns would be addressed to physicians. * Tita Hernandez RN - 05/30/2024 5:14 AM EST Pt did not want to get stuck for labs and wanted to talk with daytime Dr about need for daily labs. documented in this [facility]12-03-2024 Hospital Discharge instructions* Discharge Instructions* Mary Ellen Brito MD - 06/01/2024 3:39 PM EST HEART FAILURE SIGNS AND SYMPTOMS GREEN ZONE: All Clear- Your Symptoms Are Under Control No shortness of breath No weight gain of 3 pounds in 1 day or 5 pounds in 1 week No increase in your usual amount of swelling No chest pain No decreased ability to maintain usual activity This Means You Should: Continue taking your medications as prescribed Continue daily weights Continue low salt diet Keep all doctor appointments YELLOW ZONE: Caution as Your Health may be Worsening Weight increases 3 pounds in 1 day or 5 pounds in 1 week Increased cough, especially at night Increased shortness of breath with activity Increased shortness of breath laying down Have any wheezing or chest tightness at rest Need to sleep sitting in a chair or require more pillows when lying down Increased swelling in feet, ankles, or legs Feeling more tired or lack of energy Uneasy feeling or that something is wrong This Means You Should: Call your doctor for further instructions RED ZONE: Medical Alert Unrelieved shortness of breath with rest Unrelieved chest pain Confusion or you can't think clearly Fainting This Means You Should Call 911 Immediately * Discharge Instr - Activity* More Rojas RN - 06/01/2024 3:52 PM EST As tolerated, safely * Discharge Instr - Diet* More Rojas RN - 06/01/2024 3:53 PM EST Heart healthy, cardiac low sodium, low fat, low cholesterol * Attachments The following attachments cannot be sent through Care Everywhere. * Heart Failure Discharge Instructions, Adult (Moroccan) * DASH Diet (Moroccan) * How to Weigh Yourself (Moroccan) documented in this [facility]12-03-2024 Consult note* Steven Bellamy MD - 06/01/2024 3:16 PM ESTAssociated Order(s): IP CONSULT TO GENERAL SURGERY Images from the original note were not included. Attending Attestation [facility] - General Surgery Patient Name: Carlo Medina Date: 06/01/24 Patient seen and examined. Agree as below. Pleasant at time of our evaluation. Patient presenting with loss of appetite, nausea, headache, some weakness as well. PMH notable to HFrEF (30% EF and 2+ mitral regurg from 02/2024), HTN, HLD. On numerous cardiac medications with reportedly questionable compliance but patient confirms he takes diligently although has not been able to establish appropriate cardiac follow-up as he has not been able to follow up for his appointments. Noted nausea after oral intake of medications but no current nausea on evaluation and denies any abdominal pain. Denies post-prandial pain. Denies fevers, chills. During hospitalization for aforementioned complaints, patient was fluid resuscitated and symptoms improved. SCHUYLER improved. Cardiology consulted and evaluated during admission. Patient afebrile and hemodynamically stable. BNP 19,900. AST and LAT with elevation. Bilirbuin highest 1.8. Concern for possible biliary etiology so US was obtained demonstrating no gallbladder stones but did demonstrate pericholecystic fluid and wall thickening. There was some concern for CBD enlargement and an MRI was obtained for further detail without evidence of biliary dilation or choledocholithiasis. Perichoelcystic fluid was again present but gallbladder was not distended. Surgery was consulted. We did see patient before he left the hospital but regardless of recommendations, he was adamant about leaving the hospital this evening. Primary team did order HIDA but patient was not staying for this. Exam: Abdomen: Soft, nontender, nondistended. Assessment and Plan: 44 y.o. male with HFrEF, EF 30% with 2+ mitral regurgitation and questionable compliance presentingwith fatigue, SCHUYLER, volume irregularity. During admission, concern for pericholecystic fluid and wall thickening and underlying biliary pathology. Reviewed imaging at length with patient. Suspect that findings on US and MRI are sequelae of his HFand represent congestive hepatopathy. No evidence to support acute biliary pathology. Pericholecystic fluid and reactive wall thickening are likely. No need for HIDA at this time, patient is currently completely asymptomatic. Will follow up with patient in outpatient setting for consideration of HIDA scan ongoing and re-evaluation of symptoms. Medical management per primary team Please call with questions. I agree with the documentation below unless otherwise stated. I personally saw and evaluated the patient and performed an individual physical examination. In addition, I discussed the patient's condition and treatment options with them as does coincide with the assessment and plan that we have established. I have also reviewed the past medical, surgical, family, and social history and care plan un less otherwise noted. All of the patient's questions were answered. moderate medical decision making and case complexity with 60 minute total care time including chartreview, care coordination and face to face encounter was spent discussing/counseling the patient regarding the care plan for this patient. The patient was seen and examined independently and relevantdata reviewed by myself. A full chart review was performed. Steven Bellamy MD, MPH General Surgery Perfect Serve: Steven Bellamy 7:28 PM 06/01/2024 Department of General Surgery Consult PATIENT NAME: Carlo Medina DATE OF : 1980 ADMISSION DATE: 05/28/2024 8:06 AM TODAY'S DATE: 06/01/2024 Reason for Consult: gallbladder wall thickening, cholecystitis HISTORY OF PRESENT ILLNESS: The patient is a 44 y.o. male who presents with poor appetite and dry mouth. Patient states that hehas experienced progressive loss of appetite and intermittent nausea. Patient was recently admittedearlier this fall for HF and was discharged on cardiac regimen, however charting reveals that patient is unable to adhere to the regimen regularly. Patient at bedside notes good compliance with medication. He notes that sometimes after taking the medication he feels nauseated. He denies true abdominal pain and denies symptoms of biliary colic. Patient denies episodes of emesis or fever/chills. Hen[place] normal, regular bowel movements without recent constipation, diarrhea, hematochezia, or melena. Throughout the hospitalization patient notes that he has felt improved. He notes that he is leaving tonight no matter what, though he is agreeable for outpatient follow up. PMH notable for HFrEF, HLD, HTN. Psh unremarkable, and patient notes wishes to avoid surgery if possible. US abdomen with gallbladder wall thickening with pericholecystic fluid without gallstones, CBD enlargement 11.4 mm. MRCP in process. WBC 6.7, Hgb 14.8, LFT mildly elevated with normal bilirubin. VSS. Thoroughly reviewed the patient's medical history, family history, social history and review of systems with the patient today in the office. Please see medical record for pertinent positives. Past Medical History: Past Medical History: Diagnosis Date CHF (congestive heart failure) (HCC) Hypercholesteremia Hypertension Past Surgical History: History reviewed. No pertinent surgical history. Current Medications: carvedilol, 25 mg, Oral, BID WC cholecalciferol, 4,000 Units, Oral, Daily hydrALAZINE, 25 mg, Oral, TID influenza, 0.5 mL, IntraMUSCular, Prior to discharge isosorbide dinitrate, 20 mg, Oral, TID sodium bicarbonate, 1,300 mg, Oral, BID PRN medications: acetaminophen OR acetaminophen, ondansetron ODT OR ondansetron, polyethylene glycol (PEG) 3350 Allergies: Patient has no known allergies. Social History: Social History Socioeconomic History Marital status: Single Spouse name: Not on file Number of children: Not on file Years of education: Not on file Highest education level: Not on file Occupational History Not on file Tobacco Use Smoking status: Never Passive exposure: Never Smokeless tobacco: Never Vaping Use Vaping status: Never Used Substance and Sexual Activity Alcohol use: Never Drug use: Never Sexual activity: Yes Partners: Female Other Topics Concern Not on file Social History Narrative Not on file Social Drivers of Health Financial Resource Strain: Low Risk (04/28/2024) Overall Financial Resource Strain (CARDIA) Difficulty of Paying Living Expenses: Not very hard Food Insecurity: No Food Insecurity (04/28/2024) Hunger Vital Sign Worried About Running Out of Food in the Last Year: Never true Ran Out of Food in the Last Year: Never true Transportation Needs: No Transportation Needs (05/28/2024) PRAPARE - Transportation Lack of Transportation (Medical): No Lack of Transportation (Non-Medical): No Physical Activity: Insufficiently Active (04/28/2024) Exercise Vital Sign Days of Exercise per Week: 7 days Minutes of Exercise per Session: 10 min Stress: No Stress Concern Present (04/28/2024) [employer] [place] [place] [employer] [facility] - Occupational Stress Questionnaire Feeling of Stress : Not at all Recent Concern: Stress - Stress Concern Present (02/28/2024) [place] [place] [employer] [facility] - Occupational Stress Questionnaire Feeling of Stress : To some extent Social Connections: Unknown (04/28/2024) Social Connection and Isolation Panel [NHANES] Frequency of Communication with Friends and Family: Once a week Frequency of Social Gatherings with Friends and Family: Once a week Attends Holiness Services: Patient unable to answer Active Member of Clubs or Organizations: No Attends Club or Organization Meetings: Never Marital Status: Living with partner Intimate Partner Violence: Not At Risk (04/28/2024) Humiliation, Afraid, Rape, and Kick questionnaire Fear of Current or Ex-Partner: No Emotionally Abused: No Physically Abused: No Sexually Abused: No Housing Stability: Low Risk (05/28/2024) Housing Stability Vital Sign Unable to Pay for Housing in the Last Year: No Number of Times Moved in the Last Year: 0 Homeless in the Last Year: No Family History: No family history on file. REVIEW OF SYSTEMS: CONSTITUTIONAL: Negative for fatigue, and unexpected weight change HENT: Negative for hearing loss, nosebleeds, sneezing, sore throat, trouble swallowing and voice change. RESPIRATORY: Negative for cough, SOB, and wheezing CARDIOVASCULAR: Negative for chest pains and palpatations GASTROINTESTINAL: Positive for nausea and poor appetite. Negative for fever/chills, vomiting, hematochezia, melena, constipation, or diarrhea GENITOURINARY: negative for dysuria, urgency, frequency, and difficulty urinating. SKIN: negative for rash ALLERGIC/IMMUNOLOGIC: Negative for immunocompromised state HEMATOLOGIC/LYMPHATIC: Negative for adenopathy. Does not bruise/bleed easily. NEUROLOGICAL: Negative for seizures and syncope * All other ROS reviewed see HPI for pertinent positives and negatives. PHYSICAL EXAM: VITALS: BP 125/96 (BP Location: Left arm, Patient Position: Lying) Pulse 106 Temp (!) 35.6 C (96 F) (Temporal) Resp 16 Ht 6' 1 (1.854 m) Wt 180 lb (81.6 kg) SpO2 98% BMI 23.75 kg/m 24HR INTAKE/OUTPUT: I/O last 3 completed shifts: In: 100 (1.2 mL/kg) [P.O.:100] Out: - (0 mL/kg) Weight: 81.6 kg I/O this shift: In: 500 [P.O.:500] Out: - CONSTITUTIONAL: Appears well nourished. No distress EYES: PERRL, conjunctiva normal ENT: Normocepalic,atraumatic, without obvious abnormality NECK: supple, symmetrical, trachea midline, no thyromegaly LUNGS: Resp effort easy and unlabored, breath sounds normal CARDIOVASCULAR: NO JVD, RRR, No murmur ABDOMEN: soft, nondistended, nontender, (-)Melendez sign, peritoneal signs absent, no masses palpatedand hernia absent MUSCULOSKELETAL: Normal range of motion, no edema NEUROLOGIC: Mental Status Exam: Level of Alertness: alert Sensation globally intact PSYCHIATRIC: Oriented to person, place, and time. Speech is normal, mood appears normal SKIN: Warm, dry, and intact DATA: US abdomen complete Status: Final result Link to Procedure Log Procedure Log PACS Images Show images for US abdomen complete Study Result Narrative & Impression [facility] 1980 [id number] Exam Date/Time: 05/31/2024 15:37 Procedure: US ABDOMEN COMPLETE Ordering Provider: BURGER NICHOLE Reason For Exam: INCREASED LIVER ENZYMES ULTRASOUND ABDOMEN COMPLETE EXAM DATE AND TIME: 05/31/2024 3:37 PM EST INDICATION: 44 years Male with elevated liver enzymes COMPARISON: The superior iliac arteries. Question about either a TECHNIQUE: Complete ultrasound of abdomen FINDINGS: Pancreas: The visualized portions of the pancreatic head and body are unremarkable. The remainder of the pancreas is obscured by bowel gas Liver: Normal echogenicity, size and contours. No focal lesion identified. Gallbladder: The gallbladder demonstrates gallbladder wall thickening and pericholecystic fluid. Ultrasound Melendez sign is positive. Per the special procedure technologist, the sonographic Melendez's sign wasnegative. Bile ducts: There is extrahepatic biliary duct dilatation Common bile duct: 11.4 mm Right kidney: Normal size measuring 9.9 x 5.0 x 4.1 cm. Normal parenchymal echogenicity without solid mass or hydronephrosis. Left kidney: Normal size measuring 9.7 x 5.5 x 5.8 cm. Normal parenchymal echogenicity without solid mass or hydronephrosis. Spleen: Normal size measuring 8.4 x 7.9 x 3.1 cm. Normal echogenicity without a lesion. Aorta and Inferior vena cava: Visualized portions are normal Ascites: None IMPRESSION: 1. Gallbladder wall thickening with pericholecystic fluid and ultrasound positive Melendez sign. Gallstone is not visualized within the gallbladder, however the other findings would be concerning for cholecystitis. Further evaluation with HIDA scan is recommended. Enlargement of the common bile duct may be related to distal common duct obstruction. Report Dictated on Electronically Signed By: Joel Hi MD Electronically Signed Date/Time: 05/31/2024 4:20 PM EST Result History US abdomen complete (Order #[id number]) on 05/31/2024 - Order Result History Report US abdomen complete: Patient Communication Add Comments Not seen Breast Imaging Recommendations Carlo Medina No recommendations exist for this order. Risk Scores No Tyrer-Cuzick assessment data. No Risk Considerations assessment data. No NCC HBOC Guidelines assessment data. No NCCN Miller assessment data. No Risk Explanation Tyrer-Cuzick 8 assessment data. No BRCAPRO assessment data. No Myriad risk assessment data. No Boris risk assessment data. No Terri risk assessment data. No PIGMENT WEIGHER Request ID assessment data. No [facility] room server ID assessment data. Breast Cancer Risk Navigation Events None Signed by Signed Time Phone Pager Joel Hi MD 05/31/2024 16:20 Exam Information Status Exam Begun Exam Ended Final 05/31/2024 15:37 05/31/2024 16:00 External Results Report Open External Results Report Encounter View Encounter Study Details Open Study Details Order Transmittal Tracking US abdomen complete (Order #[id number]) on 05/31/24 Order Report US abdomen complete (Order #[id number]) on 05/31/24 CBC: Recent Labs 05/30/24 1222 06/01/24 1341 WBC 7.7 6.7 HGB 14.5 14.8 HCT 44.7 46.3 PLT 204 200 BMP: Recent Labs 05/30/24 1222 06/01/24 1341 NA 136 138 K 4.4 4.7 CL 114* 109* CO2 17* 22 BUN 42* 37* CREATININE 1.88* 2.05* GLUCOSE 124* 113* Hepatic: Recent Labs 05/30/24 1222 06/01/24 1341 AST 70* 47* ALT 160* 170* BILITOT 1.1 1.1 ALKPHOS 108 103 Mag: No results for input(s): MG in the last 72 hours. Phos: Recent Labs 05/30/24 1225 PHOS 4.7* INR: No results for input(s): INR in the last 72 hours. IMPRESSION/RECOMMENDATIONS: Mr. Medina is a 44 y.o. M presenting with low appetite and dry mouth -US abdomen with gallbladder wall thickening with pericholecystic fluid without gallstones, CBD enlargement 11.4 mm -MRCP in process, lower suspicion for choledocholithiasis -WBC 6.7, Hgb 14.8, LFT mildly elevated with normal bilirubin -Cardiology following for HF, EF ~30% -Okay for diet as tolerated -Outpatient HIDA scan recommended -Medical mgmt per primary team Disposition: Patient with probable congestive hepatopathy. Unlikely to be true gallbladder etiologyhowever await MRI to rule out any ductal obstructive process. If clear, okay for homegoing with outpatient follow up and probable HIDA scan. No operative planning at this time. Patient counseled on risks, benefits, and alternatives of treatment plan at length. Patient states an understanding and willingness to proceed with plan. Thank you for the opportunity to care for your patient, please don't hesitate to contact me for anyquestions or concerns you may have. IVIS Hodgson Secure Chat during hours 7:30a-4:30p Friday-Friday After hours, please contact physician casino floorperson. [facility] Phone: [phone]) 821-505212-03-2024 Consult note* Steven Bellamy MD - 06/01/2024 3:16 PM ESTAssociated Order(s): IP CONSULT TO GENERAL SURGERY Images from the original note were not included. Attending Attestation [facility] - General Surgery Patient Name: Carlo Medina Date: 06/01/24 Patient seen and examined. Agree as below. Pleasant at time of our evaluation. Patient presenting with loss of appetite, nausea, headache, some weakness as well. PMH notable to HFrEF (30% EF and 2+ mitral regurg from 02/2024), HTN, HLD. On numerous cardiac medications with reportedly questionable compliance but patient confirms he takes diligently although has not been able to establish appropriate cardiac follow-up as he has not been able to follow up for his appointments. Noted nausea after oral intake of medications but no current nausea on evaluation and denies any abdominal pain. Denies post-prandial pain. Denies fevers, chills. During hospitalization for aforementioned complaints, patient was fluid resuscitated and symptoms improved. SCHUYLER improved. Cardiology consulted and evaluated during admission. Patient afebrile and hemodynamically stable. BNP 19,900. AST and LAT with elevation. Bilirbuin highest 1.8. Concern for possible biliary etiology so US was obtained demonstrating no gallbladder stones but did demonstrate pericholecystic fluid and wall thickening. There was some concern for CBD enlargement and an MRI was obtained for further detail without evidence of biliary dilation or choledocholithiasis. Perichoelcystic fluid was again present but gallbladder was not distended. Surgery was consulted. We did see patient before he left the hospital but regardless of recommendations, he was adamant about leaving the hospital this evening. Primary team did order HIDA but patient was not staying for this. Exam: Abdomen: Soft, nontender, nondistended. Assessment and Plan: 44 y.o. male with HFrEF, EF 30% with 2+ mitral regurgitation and questionable compliance presentingwith fatigue, SCHUYLER, volume irregularity. During admission, concern for pericholecystic fluid and wall thickening and underlying biliary pathology. Reviewed imaging at length with patient. Suspect that findings on US and MRI are sequelae of his HFand represent congestive hepatopathy. No evidence to support acute biliary pathology. Pericholecystic fluid and reactive wall thickening are likely. No need for HIDA at this time, patient is currently completely asymptomatic. Will follow up with patient in outpatient setting for consideration of HIDA scan ongoing and re-evaluation of symptoms. Medical management per primary team Please call with questions. I agree with the documentation below unless otherwise stated. I personally saw and evaluated the patient and performed an individual physical examination. In addition, I discussed the patient's condition and treatment options with them as does coincide with the assessment and plan that we have established. I have also reviewed the past medical, surgical, family, and social history and care plan unless otherwise noted. All of the patient's questions were answered. moderate medical decision making and case complexity with 60 minute total care time including chartreview, care coordination and face to face encounter was spent discussing/counseling the patient regarding the care plan for this patient. The patient was seen and examined independently and relevantdata reviewed by myself. A full chart review was performed. Steven Bellamy MD, MPH General Surgery Perfect Serve: Steven Bellamy 7:28 PM 06/01/2024 Department of General Surgery Consult PATIENT NAME: Carlo Medina DATE OF : 1980 ADMISSION DATE: 05/28/2024 8:06 AM TODAY'S DATE: 06/01/2024 Reason for Consult: gallbladder wall thickening, cholecystitis HISTORY OF PRESENT ILLNESS: The patient is a 44 y.o. male who presents with poor appetite and dry mouth. Patient states that hehas experienced progressive loss of appetite and intermittent nausea. Patient was recently admittedearlier this fall for HF and was discharged on cardiac regimen, however charting reveals that patient is unable to adhere to the regimen regularly. Patient at bedside notes good compliance with medication. He notes that sometimes after taking the medication he feels nauseated. He denies true abdominal pain and denies symptoms of biliary colic. Patient denies episodes of emesis or fever/chills. Hen[place] normal, regular bowel movements without recent constipation, diarrhea, hematochezia, or melena. Throughout the hospitalization patient notes that he has felt improved. He notes that he is leaving tonight no matter what, though he is agreeable for outpatient follow up. PMH notable for HFrEF, HLD, HTN. Psh unremarkable, and patient notes wishes to avoid surgery if possible. US abdomen with gallbladder wall thickening with pericholecystic fluid without gallstones, CBD enlargement 11.4 mm. MRCP in process. WBC 6.7, Hgb 14.8, LFT mildly elevated with normal bilirubin. VSS. Thoroughly reviewed the patient's medical history, family history, social history and review of systems with the patient today in the office. Please see medical record for pertinent positives. Past Medical History: Past Medical History: Diagnosis Date CHF (congestive heart failure) (HCC) Hypercholesteremia Hypertension Past Surgical History: History reviewed. No pertinent surgical history. Current Medications: carvedilol, 25 mg, Oral, BID WC cholecalciferol, 4,000 Units, Oral, Daily hydrALAZINE, 25 mg, Oral, TID influenza, 0.5 mL, IntraMUSCular, Prior to discharge isosorbide dinitrate, 20 mg, Oral, TID sodium bicarbonate, 1,300 mg, Oral, BID PRN medications: acetaminophen OR acetaminophen, ondansetron ODT OR ondansetron, polyethylene glycol (PEG) 3350 Allergies: Patient has no known allergies. Social History: Social History Socioeconomic History Marital status: Single Spouse name: Not on file Number of children: Not on file Years of education: Not on file Highest education level: Not on file Occupational History Not on file Tobacco Use Smoking status: Never Passive exposure: Never Smokeless tobacco: Never Vaping Use Vaping status: Never Used Substance and Sexual Activity Alcohol use: Never Drug use: Never Sexual activity: Yes Partners: Female Other Topics Concern Not on file Social History Narrative Not on file Social Drivers of Health Financial Resource Strain: Low Risk (04/28/2024) Overall Financial Resource Strain (CARDIA) Difficulty of Paying Living Expenses: Not very hard Food Insecurity: No Food Insecurity (04/28/2024) Hunger Vital Sign Worried About Running Out of Food in the Last Year: Never true Ran Out of Food in the Last Year: Never true Transportation Needs: No Transportation Needs (05/28/2024) PRAPARE - Transportation Lack of Transportation (Medical): No Lack of Transportation (Non-Medical): No Physical Activity: Insufficiently Active (04/28/2024) Exercise Vital Sign Days of Exercise per Week: 7 days Minutes of Exercise per Session: 10 min Stress: No Stress Concern Present (04/28/2024) [place] [place] [employer] - Occupational Stress Questionnaire Feeling of Stress : Not at all Recent Concern: Stress - Stress Concern Present (02/28/2024) [place] [place] [employer] - Occupational Stress Questionnaire Feeling of Stress : To some extent Social Connections: Unknown (04/28/2024) Social Connection and Isolation Panel [NHANES] Frequency of Communication with Friends and Family: Once a week Frequency of Social Gatherings with Friends and Family: Once a week Attends Holiness Services: Patient unable to answer Active Member of Clubs or Organizations: No Attends Club or Organization Meetings: Never Marital Status: Living with partner Intimate Partner Violence: Not At Risk (04/28/2024) Humiliation, Afraid, Rape, and Kick questionnaire Fear of Current or Ex-Partner: No Emotionally Abused: No Physically Abused: No Sexually Abused: No Housing Stability: Low Risk (05/28/2024) Housing Stability Vital Sign Unable to Pay for Housing in the Last Year: No Number of Times Moved in the Last Year: 0 Homeless in the Last Year: No Family History: No family history on file. REVIEW OF SYSTEMS: CONSTITUTIONAL: Negative for fatigue, and unexpected weight change HENT: Negative for hearing loss, nosebleeds, sneezing, sore throat, trouble swallowing and voice change. RESPIRATORY: Negative for cough, SOB, and wheezing CARDIOVASCULAR: Negative for chest pains and palpatations GASTROINTESTINAL: Positive for nausea and poor appetite. Negative for fever/chills, vomiting, hematochezia, melena, constipation, or diarrhea GENITOURINARY: negative for dysuria, urgency, frequency, and difficulty urinating. SKIN: negative for rash ALLERGIC/IMMUNOLOGIC: Negative for immunocompromised state HEMATOLOGIC/LYMPHATIC: Negative for adenopathy. Does not bruise/bleed easily. NEUROLOGICAL: Negative for seizures and syncope * All other ROS reviewed see HPI for pertinent positives and negatives. PHYSICAL EXAM: VITALS: BP 125/96 (BP Location: Left arm, Patient Position: Lying) Pulse 106 Temp (!) 35.6 C (96 F) (Temporal) Resp 16 Ht 6' 1 (1.854 m) Wt 180 lb (81.6 kg) SpO2 98% BMI 23.75 kg/m 24HR INTAKE/OUTPUT: I/O last 3 completed shifts: In: 100 (1.2 mL/kg) [P.O.:100] Out: - (0 mL/kg) Weight: 81.6 kg I/O this shift: In: 500 [P.O.:500] Out: - CONSTITUTIONAL: Appears well nourished. No distress EYES: PERRL, conjunctiva normal ENT: Normocepalic,atraumatic, without obvious abnormality NECK: supple, symmetrical, trachea midline, no thyromegaly LUNGS: Resp effort easy and unlabored, breath sounds normal CARDIOVASCULAR: NO JVD, RRR, No murmur ABDOMEN: soft, nondistended, nontender, (-)Melendez sign, peritoneal signs absent, no masses palpatedand hernia absent MUSCULOSKELETAL: Normal range of motion, no edema NEUROLOGIC: Mental Status Exam: Level of Alertness: alert Sensation globally intact PSYCHIATRIC: Oriented to person, place, and time. Speech is normal, mood appears normal SKIN: Warm, dry, and intact DATA: US abdomen complete Status: Final result Link to Procedure Log Procedure Log PACS Images Show images for US abdomen complete Study Result Narrative & Impression [facility] 1980 [id number] Exam Date/Time: 05/31/2024 15:37 Procedure: US ABDOMEN COMPLETE Ordering Provider: BURGER NICHOLE Reason For Exam: INCREASED LIVER ENZYMES ULTRASOUND ABDOMEN COMPLETE EXAM DATE AND TIME: 05/31/2024 3:37 PM EST INDICATION: 44 years Male with elevated liver enzymes COMPARISON: The superior iliac arteries. Question about either a TECHNIQUE: Complete ultrasound of abdomen FINDINGS: Pancreas: The visualized portions of the pancreatic head and body are unremarkable. The remainder of the pancreas is obscured by bowel gas Liver: Normal echogenicity, size and contours. No focal lesion identified. Gallbladder: The gallbladder demonstrates gallbladder wall thickening and pericholecystic fluid. Ultrasound Melendez sign is positive. Per the special procedure technologist, the sonographic Melendez's sign wasnegative. Bile ducts: There is extrahepatic biliary duct dilatation Common bile duct: 11.4 mm Right kidney: Normal size measuring 9.9 x 5.0 x 4.1 cm. Normal parenchymal echogenicity without solid mass or hydronephrosis. Left kidney: Normal size measuring 9.7 x 5.5 x 5.8 cm. Normal parenchymal echogenicity without solid mass or hydronephrosis. Spleen: Normal size measuring 8.4 x 7.9 x 3.1 cm. Normal echogenicity without a lesion. Aorta and Inferior vena cava: Visualized portions are normal Ascites: None IMPRESSION: 1. Gallbladder wall thickening with pericholecystic fluid and ultrasound positive Melendez sign. Gallstone is not visualized within the gallbladder, however the other findings would be concerning for cholecystitis. Further evaluation with HIDA scan is recommended. Enlargement of the common bile duct may be related to distal common duct obstruction. Report Dictated on Electronically Signed By: Joel Hi MD Electronically Signed Date/Time: 05/31/2024 4:20 PM EST Result History US abdomen complete (Order #[id number]) on 05/31/2024 - Order Result History Report US abdomen complete: Patient Communication Add Comments Not seen Breast Imaging Recommendations Carlo Medina No recommendations exist for this order. Risk Scores No Tyrer-Cuzick assessment data. No Risk Considerations assessment data. No NCC HBOC Guidelines assessment data. No NCCN Miller assessment data. No Risk Explanation Tyrer-Cuzick 8 assessment data. No BRCAPRO assessment data. No Myriad risk assessment data. No Boris risk assessment data. No Terri risk assessment data. No PIGMENT WEIGHER Request ID assessment data. No PIGMENT WEIGHER room server ID assessment data. Breast Cancer Risk Navigation Events None Signed by Signed Time Phone Pager Joel Hi MD 05/31/2024 16:20 Exam Information Status Exam Begun Exam Ended Final 05/31/2024 15:37 05/31/2024 16:00 External Results Report Open External Results Report Encounter View Encounter Study Details Open Study Details Order Transmittal Tracking US abdomen complete (Order #[id number]) on 05/31/24 Order Report US abdomen complete (Order #[id number]) on 05/31/24 CBC: Recent Labs 05/30/24 1222 06/01/24 1341 WBC 7.7 6.7 HGB 14.5 14.8 HCT 44.7 46.3 PLT 204 200 BMP: Recent Labs 05/30/24 1222 06/01/24 1341 NA 136 138 K 4.4 4.7 CL 114* 109* CO2 17* 22 BUN 42* 37* CREATININE 1.88* 2.05* GLUCOSE 124* 113* Hepatic: Recent Labs 05/30/24 1222 06/01/24 1341 AST 70* 47* ALT 160* 170* BILITOT 1.1 1.1 ALKPHOS 108 103 Mag: No results for input(s): MG in the last 72 hours. Phos: Recent Labs 05/30/24 1225 PHOS 4.7* INR: No results for input(s): INR in the last 72 hours. IMPRESSION/RECOMMENDATIONS: Mr. Medina is a 44 y.o. M presenting with low appetite and dry mouth -US abdomen with gallbladder wall thickening with pericholecystic fluid without gallstones, CBD enlargement 11.4 mm -MRCP in process, lower suspicion for choledocholithiasis -WBC 6.7, Hgb 14.8, LFT mildly elevated with normal bilirubin -Cardiology following for HF, EF ~30% -Okay for diet as tolerated -Outpatient HIDA scan recommended -Medical mgmt per primary team Disposition: Patient with probable congestive hepatopathy. Unlikely to be true gallbladder etiologyhowever await MRI to rule out any ductal obstructive process. If clear, okay for homegoing with outpatient follow up and probable HIDA scan. No operative planning at this time. Patient counseled on risks, benefits, and alternatives of treatment plan at length. Patient states an understanding and willingness to proceed with plan. Thank you for the opportunity to care for your patient, please don't hesitate to contact me for anyquestions or concerns you may have. IVIS Hodgson Secure Chat during hours 7:30a-4:30p Friday-Friday After hours, please contact physician casino floorperson. * Tahmina Berg RD - 05/29/2024 2:14 PM ESTAssociated Order(s): IP CONSULT TO DIETITIAN Nutrition Assessment Type and Reason for Visit: Initial, Consult Nutrition Recommendations/Plan: Recommend 2 gm sodium diet (pt reports low appetite +nausea at this time) Per mnt protocol will add Ensure High Prot once daily (160 kcal, 16 gm prot) - modify as needed per po intakes Please record meal and supplement intakes in RN Flowsheets RD to monitor clinical course, labs, weight, PO intake -follow up weekly Malnutrition Assessment: Malnutrition Status: Moderate malnutrition Context: Chronic Illness Findings of the 6 clinical characteristics of malnutrition: Energy Intake: 75% or less estimated energy requirements for 1 month or longer Weight Loss: Greater than 5% over 1 month Body Fat Loss: No significant body fat loss Muscle Mass Loss: No significant muscle mass loss Fluid Accumulation: Mild Extremities Pharmacy Delivery Driver Strength: Not Performed Nutrition Assessment: 44 y.o. male admits for further eval and management of ADHF and SCHUYLER likely due to CRS. Nephrology and Cardiology consulted. Pt reports having low appetite over the last 1-2 mo with 20 lb wt loss since 01/2024 -state some may have been fluid but ?sister noticing significant wt loss over past month. ubw 205 lb 01/2024. Pt reports nausea comes and goes and recently had diarrhea. states he tolerated 2 meals yesterday but not eating much today -discussed use of Ensure ->to supplement low po intake of meals/encourage adequate nutrition -hesitate use otherwise (at this time) due to worsening renal function -pt /sister verbalized understanding Estimated Daily Nutrient Needs: Energy Requirements Based On: Kcal/kg Weight Used for Energy Requirements: [place] Weight for Energy Calculation (kg): 84 kg Total Energy Requirements (kcals/day): 0408-6054 (25-30) Weight Used for Protein Requirements: [place] Weight in Kg Used for Protein Requirements: 84 kg Estimated Total Protein (g/day): 67-84 (.8-1.0) monitor renal function Estimated Daily Total Fluid (ml/day): per MD Nutrition Related Findings: +1 evans LE edema. abdomen soft, bm 05/27. bun 41, cr 1.72, gfr 48.7, calcium 8.2, mg 2.4, alb 3.0, ast 49/alt 114, bnp 19,900. meds reviewed. 6% wt loss in 1 mo, 12% wt loss < 3 mo considered clinically significant Wound Type: None Wt Readings from Last 50 Encounters: 05/28/24 81.6 kg (180 lb) 04/28/24 87 kg (191 lb 12.8 oz) 03/07/24 84.6 kg (186 lb 6.4 oz) 02/29/24 93 kg (205 lb) Current Nutrition Therapies: Adult diet Regular Current Oral Intake Average Meal Intake: 26-50% Average Supplements Intake: None Ordered Anthropometric Measures: Height: 185.4 cm (6' 1) Current Body Weight: 81.6 kg (180 lb) Weight Source: Not Specified Admission Body Weight: 81.6 kg (180 lb) (pt states bed scale) Usual Body Weight: 93 kg (205 lb) (01/2024 per pt) % Weight Change (Calculated): -12.2 [place] Body Weight (lbs) (Calculated): 184 lbs [place] Body Weight (Kg) (Calculated): 84 kg % [place] Body Weight (Calculated): 97.8 % BMI (kg/m2) (Calculated): 23.8 Weight Adjustment For: No Adjustment BMI Categories: Normal Weight (BMI 18.5-24.9) Nutrition Diagnosis: Moderate malnutrition, In context of chronic illness related to inadequate protein-energy intake asevidenced by weight loss greater than or equal to 5% in 1 month, poor intake prior to admission (12% wt loss < 3 mo) Altered nutrition-related lab values related to cardiac dysfunction, renal dysfunction as evidencedby lab values Nutrition Interventions: Nutrition Education/Counseling: No recommendation at this time (pt previously educated on low sodium diet -declines further review or info at this time) Coordination of Nutrition Care: Continue to monitor while inpatient Plan of Care discussed with: Pt/ sister Goals: Goals: PO intake 75% or greater, by next RD assessment Nutrition Monitoring and Evaluation: Behavioral-Environmental Outcomes: None Identified Food/Nutrient Intake Outcomes: Food and Nutrient Intake, Supplement Intake Physical Signs/Symptoms Outcomes: Biochemical Data, GI Status, Nausea or Vomiting, Fluid Status or Edema, Hemodynamic Status, Nutrition Focused Physical Findings, Skin, Weight Discharge Planning: Continue current diet, Recommend pursue outpatient nutrition counseling Tahmina Berg RD Contact: *[phone] or via Secure Chat * Garrick Bearden MD - 05/28/2024 3:25 PM ESTAssociated Order(s): IP CONSULT TO CARDIOLOGY [facility] [place] [facility] [place] [facility] Cardiology /Electrophysiology Consult Note Reason for Consult/Chief Complaint: Nausea, vomiting, feeling dehydrated Referring provider: [facility] radar engineer: Katerin History of Present Illness: Carlo Medina is a 44 y.o. male with a recent diagnosis of dilated cardiomyopathy. He was admittedin February with shortness of breath. An echocardiogram showed severe LV dysfunction with an estimated ejection fraction of 30%, moderate mitral regurgitation. A coronary CTA did not show coronary ar perlita calcifications. Patient has no significant past medical history, however there is concerned that he has chronic kidney disease with decreased glomerular filtration rate. He denies previous history of hypertension or diabetes. He has a family history of heart failure in his father who of heart failure at an unknown age, his older brother was diagnosed with dilated cardiomyopathy at around age 55. Patient was started on guideline directed medical therapy, including carvedilol torsemide rosuvastatin spironolactone and losartan. However he felt that torsemide caused him to have nausea and vomiting and he stopped taking the diuretic. He states his shortness of breath did not improve. His nausea and vomiting improved mildly but did not resolve. He denies chest pain, palpitations or syncope. Patient works at [employer] in the [employer]. Assessment/Plan HF NYHA Class [] I [] II [] III [] IV []Unable to assess Chronic systolic heart failure: The patient has rising BNP, which may be due to his acute on chronic renal failure. However he also has significant JVD. Therefore I suspect that his renal insufficiency is cardiorenal syndrome due to low cardiac output. This is confounded by the fact that his lower extremity is somewhat cold. Although the patient does not appear to be in clinical distress or near cardiogenic shock, I am concerned that he is at increased for acute decompensation. I took the liberty to restart carvedilol. I recommend to withhold further intravenous fluid boluses. Due to the patient's young age and advanced heart failure and severe LV dysfunction I recommended that he be transferred to [facility] cardiology service possibly even the heart failure unit for aggressive invasive evaluation and management. At this point the patient is reluctant, wants to discuss it withhis girlfriend. Acute on chronic renal insufficiency: Clinically this is likely cardiorenal syndrome and will only improve with improvement of his cardiac function. I tried to explain to the patient that his symptoms of nausea vomiting and feeling dehydrated may or may not be due to torsemide. Cardiology will follow along. Medications: carvedilol, 12.5 mg, Oral, BID WC [START ON 05/29/2024] influenza, 0.5 mL, IntraMUSCular, Prior to discharge Infusion Medications: Physical Examination: Vitals: 05/28/24 1030 05/28/24 1100 05/28/24 1200 05/28/24 1441 BP: (!) 132/101 (!) 130/107 (!) 137/106 132/99 BP Location: Left arm Patient Position: Lying Pulse: 106 108 107 108 Resp: 18 19 16 Temp: (!) 35.7 C (96.3 F) TempSrc: Temporal SpO2: 98% 100% 99% 98% Weight: 180 lb (81.6 kg) Intake/Output Summary (Last 24 hours) at 05/28/2024 1525 Last data filed at 05/28/2024 1015 Gross per 24 hour Intake 1000 ml Output -- Net 1000 ml Wt Readings from Last 3 Encounters: 05/28/24 180 lb (81.6 kg) 04/28/24 191 lb 12.8 oz (87 kg) 03/07/24 186 lb 6.4 oz (84.6 kg) Physical Exam Vitals reviewed. Constitutional: Appearance: Normal appearance. He is normal weight. HENT: Head: Normocephalic and atraumatic. Right Ear: External ear normal. Left Ear: External ear normal. Nose: Nose normal. Eyes: Extraocular Movements: Extraocular movements intact. Conjunctiva/sclera: Conjunctivae normal. Neck: Vascular: JVD (8 to 10 cm) present. No carotid bruit. Cardiovascular: Rate and Rhythm: Normal rate and regular rhythm. Heart sounds: No murmur heard. No gallop. Pulmonary: Effort: Pulmonary effort is normal. Breath sounds: Normal breath sounds. No wheezing. Abdominal: General: Bowel sounds are normal. Palpations: Abdomen is soft. Musculoskeletal: General: No swelling. Normal range of motion. Cervical back: Neck supple. Right lower leg: No edema. Left lower leg: No edema. Skin: General: Skin is dry. Comments: Both feet are cold Neurological: General: No focal deficit present. Mental Status: He is alert and oriented to person, place, and time. Psychiatric: Mood and Affect: Mood normal. Behavior: Behavior normal. Laboratory Tests: Recent Labs 05/28/24 0811 05/28/24 1249 NA 141 139 K 4.6 4.6 CL 114* 116* CO2 19* 14* BUN 38* 34* CREATININE 2.06* 1.74* EGFR 39.5* 48.4* Recent Labs 05/28/24 0811 05/28/24 1249 TROPONINI 0.051* 0.037* Recent Labs 05/28/24 0811 WBC 5.4 HGB 16.6 15.7 HCT 48.3 MCV 98.2 PLT 205 Lab Results Component Value Date HGBA1C 5.0 03/01/2024 Lab Results Component Value Date TSH 0.820 05/28/2024 Lab Results Component Value Date CHOL 172 02/29/2024 Lab Results Component Value Date HDL 28 (L) 02/29/2024 Lab Results Component Value Date LDLCALC 126 (H) 02/29/2024 Lab Results Component Value Date TRIG 88 02/29/2024 No results found for: CHOLHDL No results found for: LDLCHOLESTER Recent Labs 05/28/24 0811 BNP 19,900* No results for input(s): INR in the last 72 hours. Results from last 7 days Lab Units 05/28/24 0811 AST U/L 48* ALT U/L 129* No results found for: IRON, TIBC, FERRITIN Radiology: CXR: personally reviewed: Cardiac Tests Personally Reviewed: Last EKG 05/28/24 ECG 12-LEAD 05/28/2024 9:01 AM (Final) Impression Sinus tachycardia Probable left atrial enlargement Abnormal R-wave progression, late transition Left ventricular hypertrophy Nonspecific T abnormalities, lateral leads Anterior ST elevation, probably due to LVH Electronically Signed On 05-28-2024 09:01:45 EST by Izaiah Martins Signed by: Izaiah Martins on 05/28/2024 9:01 AM Telemetry findings: Sinus rhythm Reports reviewed: Last Echo 02/28/24 TRANSTHORACIC ECHOCARDIOGRAM (TTE) COMPLETE (CONTRAST/BUBBLE/3D PRN) 02/29/2024 9:39 AM (Final) Interpretation Summary Left Ventricle: Left ventricle is mildly dilated. Mildly increased wall thickness. Mild septal thickening. Moderately reduced left ventricular systolic function. EF by 2D Simpsons Biplane is 30%. Global longitudinal strain is -7.1%. Severe global hypokinesis present. Grade II diastolic dysfunction with increased LAP. Right Ventricle: Right ventricle size is normal. Normal systolic function. TAPSE is 2.5 cm. Aortic Valve: No stenosis. AV mean gradient is 3 mmHg. AV peak velocity is 1.2 m/s. LVOT:AV VTI Index is 0.76. Mitral Valve: Moderate (2+) regurgitation. Tricuspid Valve: RVSP is 23 mmHg. Left Atrium: Left atrium is moderately dilated. LA Vol Index A/L is 42 mL/m2. Aorta: Normal sized sinuses of Valsalva and ascending aorta. Sinuses of Valsalva diameter is 3.2 cm. Ao ascending diameter is 3.3 cm. IVC/SVC: IVC diameter is normal and decreases greater than 50% during inspiration; therefore the estimated right atrial pressure is normal (~3 mmHg). Signed by: Radha Parikh on 02/29/2024 9:39 AM Last Cath No results found for this or any previous visit. Last Stress Test No results found for this or any previous visit. Last EP study No results found for this or any previous visit. EF BP Date Value Ref Range Status 02/29/2024 30 (A) 55 - 100 % Final AKILAH SCORE: AKILAH Score Link Garrick Bearden MD DATE of SERVICE: 05/28/2024 * Maritza Linn, CURRICULUM DIRECTOR - WHITING MACHINE OPERATOR - 05/28/2024 1:28 PM ESTAssociated Order(s): IP CONSULT TO NEPHROLOGY [facility] Consult Note Reason for Consult/Chief Complaint: worsening renal function Consulting MD: Dr. Mary Ellen Brito Outpatient Electrical Engineer: N/A History of Present Illness: Carlo Medina is a 44 y.o. male who presents to the emergency department with concern of 1 month history of nausea, lack of appetite, 10 pound weight loss, intermittent epigastric discomfort. Relates this all started after he got out of the hospital and his previous admission for CHF exacerbation.Relates only new medication started at that discharge was torsemide, which she stopped 2 weeks ago,however symptoms has not improved. Relates that his epigastric burning pain is only intermittent. Also reports persistent fatigue. Denies chest pain, shortness of breath, fever, chills. Has had intermittent diarrhea as well. Denies urinary complaints. Notably, has a history of congestive heart failure with a echo in February of this year with left ventricular ejection fraction of 30% and 2+ mitral regurgitation. Has been admitted 3 times since January for congestive heart failure exacerbations. Nephrology is asked to see the patient for worsening renal function. Serum creatinine is currently 2.06 and has a baseline of 1.5-1.7. No known use of NSAIDs. His home medication list includes Lasix,losartan and spironolactone. He has been having nausea and vomiting with diarrhea for about a month. He has had active weight loss associated. No relative hypotension noted. No large fluctuations of hemodynamics noted. No evidence of contrast-induced nephropathy. Urine output is not well-documented. Echocardiogram from 02/29/2024 shows 30% EF. Past Medical History: Past Medical History: Diagnosis Date Hypercholesteremia Hypertension Past Surgical History: No past surgical history on file. Family History: No family history on file. Social History: Social History Tobacco Use Smoking status: Never Smokeless tobacco: Never Vaping Use Vaping status: Never Used Substance Use Topics Drug use: Never Medications: [START ON 05/29/2024] influenza, 0.5 mL, IntraMUSCular, Prior to discharge Allergies: Reviewed Review of Systems: Pertinent positives stated above in HPI. All other systems were reviewed and were negative. Physical exam: Constitutional: Vitals: 05/28/24 1000 05/28/24 1030 05/28/24 1100 05/28/24 1200 BP: (!) 132/101 (!) 130/107 (!) 137/106 BP Location: Patient Position: Pulse: 105 106 108 107 Resp: 18 19 Temp: TempSrc: SpO2: 99% 98% 100% 99% 24HR BLOOD PRESSURE RANGE: Systolic (24hrs), Av , Min:130 , Max:179 ; Diastolic (24hrs), Av, Min:101, Max:121 24HR INTAKE/OUTPUT: Intake/Output Summary (Last 24 hours) at 05/28/2024 1328 Last data filed at 05/28/2024 1015 Gross per 24 hour Intake 1000 ml Output -- Net 1000 ml Physical Exam: Appearance: NAD, awake, alert, cooperative to exam Eyes: PERRLA, clear sclera ENT: hearing normal, no oral thrush, no erythema or exudate on hard or soft palate, tongue normal, dry mucus membranes Neck: supple, no JVD, no thyromegaly Respiratory: breathing unlabored, lungs CTA B/L anteriorly without w/r/r Cardiovascular: heart RRR without m/g/r, pedal pulses palpable Gastrointestinal: abdomen soft, non-tender, non-distended, normoactive bowel sounds. No masses or hernia. Musculoskeletal: normal muscle strength and tone, no edema of BLE Skin: warm and dry, no rash or wounds Neurologic: symmetric strength and sensation Psychiatric: alert and oriented to person/place/time, judgement and insight normal, memory intact, normal mood and range of affect Data: CBC: Recent Labs 05/28/24810 WBC 5.4 RBC 4.92 HGB 16.6 15.7 HCT 48.3 MCV 98.2 RDW 13.9 PLT 205 BMP: Recent Labs 05/28/24810 NA 141 K 4.6 CL 114* CO2 19* BUN 38* CREATININE 2.06* BNP: Recent Labs 05/28/24810 BNP 19,900* UA: unavailable Imaging: Exam Date/Time: 05/28/2024 08:13 Procedure: XR CHEST 1 VIEW IMPRESSION: FINDINGS AND IMPRESSION: SUPPORT DEVICES: None OSSEOUS STRUCTURES: Degenerative changes in the thoracic spine. HEART AND MEDIASTINUM: The cardiac silhouette is enlarged. The mediastinum is unremarkable. LUNGS AND PLEURA: The lungs are clear. No sizable pleural effusion. Assessment: SCHUYLER/ATN (N17.0) NAGMA (E87.21) CKD3b (N18.32) Chronic HFrEF (I50.23) Volume depletion Nausea and vomiting Weight loss Plan: -Scr currently 2.06, bl~1.5-1.7, non-oliguric, BP elevated -S/p 1 L NS in ER -Repeat labs to gauge response -Await peak of scr followed by subsequent down trend toward baseline -Hold diuresis for now -SCHUYLER workup ordered for thoroughness, noted urine lytes likely to be skewed 2/2 CHF and/or diuresis -Control N/V/D to prevent further volume loss -Check LIZET -Bladder scan x1 for pvr, place agustin for >350cc -Avoid nephrotoxins and contrast dye -Dose all meds per current eGFR -All other care per primary team -We will follow closely with you Thank you for the consult and the opportunity to participate in the care of this patient. Please donot hesitate to call with any questions or concerns. Maritza Linn APRN, WHITING MACHINE OPERATOR [facility], [facility] [phone] office Cosigned by Saul Briones MD at 05/28/2024 2:33 PM EST Associated attestation - Saul Briones MD - 05/28/2024 2:33 PM EST Notes reviewed and plan discussed with the PA. Agree with above note except Any variance is noted below. SCHUYLER likely 2/2 vol depletion and ongoing use of diuresis nad ARB. Hold the medications. F/up on urine studies. Cont to trend labs. Consider alternative Tx for HTN. Consider Amlodipine scheduled if renal function does not recover. PRN hydral for now. Saul Briones MD [facility] [phone] documented in this [facility]12-03-2024 Note* Rapid Response Note - Jose Raul Barahona RN - 06/01/2024 1:46 PM EST Labs drawn and given to More Rn at pts bedside [id number]* Rapid Response Note - Jose Raul Barahona RN - 06/01/2024 1:46 PM EST Labs drawn and given to More Rn at pts bedside [place] [id number] Miscellaneous Notes* Rapid Response Note - Jose Raul Barahona RN - 06/01/2024 1:46 PM EST Labs drawn and given to More Evans at pts bedside * Care Coordination - Dia Gaitan RN - 05/31/2024 9:55 AM EST HF booster pump oiler: Noted rehospitalization for ADHFrEF. Pt has been unable to follow up with Cardiology as pt is uninsured. - Per JOZEF note on 04/28, pt has been denied Medicaid as he is over income. - Pt completed an HCAP application on 04/28/24 during a previous hospitalization at [facility]. This RN has made multiple attempts to check status of HCAP application in hopes of being able to schedule a follow up appt, but has not yet been informed of approval. - Message sent again today to Rayna Carroll check status who reports HCAP (denied 05/19/24) cannot be approved until a formal MD denial is received --> dept now looking to track down pt's Medicaid Notice of Action. - Updated Marcel Burger NP that pt is not able to be scheduled in the HF clinic until HCAP application is approved, as pt is unable to pay for appt out of pocket. Will continue to follow. Addendum: Notified by [employer] that [employer] screened the patient over income for Medicaid, but did not assist with a Medicaid application for denial. [employer] to go see patient and have him sign forms to apply for Medicaid for denial so HCAP application can be processed. * Care Plan - King Jackson RN - 05/30/2024 5:48 PM EST Problem: Knowledge Deficit Goal: Patient/family/caregiver demonstrates understanding of disease process, treatment plan, medications, and discharge instructions Outcome: Progressing Problem: Potential for Compromised Skin Integrity Goal: Skin Integrity is Maintained or Improved Outcome: Progressing Problem: Potential for Compromised Skin Integrity Goal: Nutritional status is improving Outcome: Progressing * Care Plan - King Jackson RN - 05/28/2024 4:04 PM EST Problem: Knowledge Deficit Goal: Patient/family/caregiver demonstrates understanding of disease process, treatment plan, medications, and discharge instructions Outcome: Progressing Problem: Potential for Compromised Skin Integrity Goal: Skin Integrity is Maintained or Improved Outcome: Progressing Problem: Potential for Compromised Skin Integrity Goal: Nutritional status is improving Outcome: Progressing documented in this [facility]12-03-2024 [facility] 06-01-2024 Hospital course Narrative* Mary Ellen Brito MD - 06/01/2024 1:27 PM EST Hospitalist Discharge Summary Carlo Medina : 1980 Admit date: 05/28/2024 Discharge date: 06/01/2024 Admitting Physician: Mary Ellen Brito MD Primary Care Physician: No primary care provider on file. Visit Status: inpatient Code Status: Full Code BRIEF HOSPITAL COURSE: carlo is a 44 y.o. male with history of HFrEF (echo in February of this year with left ventricular ejection fraction of 30% and 2+ mitral regurgitation), Hypertension and hyperlipidemia, who was discharge in February. States that since he got discharged he has been taking his heart failure medications regularly but has not been able to follow up with provider due to not having insurance > and his appointments getting cancelled before he could go. Overall feels tired, fatigued, no appetite. After he had a 1L bolus in the ED - he got his appetite back for the first time in a while. In the ED, HR 120, R 18, SBP 179/121, 100%, T 36.9 Labs show VBG7.35/35/37/19, Na 141, Cl 114, Creatinine 2.06, GFR 39.5, MG 2.4, AST 48, ALT 129, TB 1.8, Trop 0.051, BNP 19,900, CBC unremarkable. Concentrated urine, with increase proteinuria CXR showed no acute process. Family was admitted for SCHUYLER in the setting of overdiuresis combination with acute heart failure. Cardiology was consulted believe SCHUYLER in the setting of acute cardiorenal syndrome because of his low cardiac output because he still had leg JVD pressure. They were recommending Transfer to cardiology for heart failure unit for aggressive invasive evaluation and management, previously declined, as he feels overwhelmed with increased medication other changes in his life. He was provided information on cardiology follow up, [facility] if he cannot get insurance, and importance or following up. His LFTS jumped during admission and US abdomen was preformed that showed gallbladder wall thickening with pericholecystic fluid and Positve Melendez signs, concerning for cholecystitis. Originally ordered HIDA scan but he did not want to stay another night. Surgery was consulted and ordered MRCP to be obtained, they recommend outpatient follow up and likely HIDA scan on discharge. Nephrology was consulted for Schuyler during admission - which was difficult to manage as he would refuse labs the majority of time - making trending difficult. He appears depressed with flat affect during admission - long discussion of effects of serious health condition on mentation - he declined talking to psychiatry. Acute, acute on chronic, unstable/uncontrolled chronic problems/discharge diagnoses: HFrEF Carvedilol 25 mg PO BID (increased to 12.5 mg PO daily) Hydralazine 25 mg p.o. 3 times daily Isosorbide dinitrate 20 mg p.o. 3 times daily Recommending low salt diet, Daily in and out Standing weights SCHUYLER and ATN on CKD 3b Added sodium bicarbonate 650 mg p.o. twice daily Lasix to be prn on discharge for weight gain and Elevated troponin - demand ischemia Elevated AST and ALT US ordered and showing gallbladder wall thickening with pericholecystic fluid and Positve Melendez signs, concerning for cholecystitis. General surgery consulted and ordered MRCP > results pending on discharged Will likely need HIDA scan - Plans for follow up with surgery in 1 weeks time. Metabolic acidosis Added Sodium bicarbonate 1300 mg PO daily No insurance for follow up SW and CM > in process - provided information for free clinic for HF management Hypertension Nausea and emesis - improved on evaluations Volume depletion Moderate malnutrition Depression - flat effect, Past Medical History: Diagnosis Date CHF (congestive heart failure) (HCC) Hypercholesteremia Hypertension Procedures: US abdomen 05/31: Impression: 1. Gallbladder wall thickening with pericholecystic fluid and ultrasound positive Melendez sign. Gallstone is not visualized within the gallbladder, however the other findings would be concerning for cholecystitis. Further evaluation with HIDA scan is recommended. Enlargement of the common bile duct may be related to distal common duct obstruction. US retroperitoneum 05/29: Impression: No acute process. Echogenic kidneys suggesting medical renal disease. CXR 05/28 Impression: FINDINGS AND IMPRESSION: SUPPORT DEVICES: None OSSEOUS STRUCTURES: Degenerative changes in the thoracic spine. HEART AND MEDIASTINUM: The cardiac silhouette is enlarged. The mediastinum is unremarkable. LUNGS AND PLEURA: The lungs are clear. No sizable pleural effusion. Hospital Course: See discharge diagnoses list above and medication adjustments below in med rec.Thepatient is discharged in improved and stable condition. Consults: IP CONSULT TO CARDIOLOGY IP CONSULT TO NEPHROLOGY IP CONSULT TO DIETITIAN IP CONSULT TO CASE MANAGEMENT IP CONSULT TO SOCIAL WORK IP CONSULT TO GENERAL SURGERY Discharge Instructions: Diet: Dietary Orders (From admission, onward) Start Ordered 06/01/24 0957 NPO diet without enteral medications Diet effective now Question: Medications? Answer: without enteral medications 06/01/24 0956 05/29/24 1447 Supplement:Dinner; Chocolate Ensure High Protein Until discontinued Question Answer Comment Frequency Dinner Select supplement: Chocolate Ensure High Protein 05/29/24 1446 Activity: as tolerated Recommended Outpatient Tests: Disposition: Patient discharged in stable condition to Home. Greater than 31 minutes spent discharging the patient and coming up with patient discharge plan. Vitals: BP 130/98 Pulse 51 Temp 36.2 C (97.2 F) (Temporal) Resp 16 Ht 6' 1 (1.854 m) Wt 180 lb (81.6 kg) SpO2 97% BMI 23.75 kg/m Pulse Ox: SpO2 Av.8 % Min: 96 % Max: 100 % Supplemental O2: Physical Exam Vitals and nursing note reviewed. Constitutional: Appearance: Normal appearance. HENT: Head: Normocephalic. Nose: No congestion or rhinorrhea. Mouth/Throat: Mouth: Mucous membranes are moist Eyes: General: Right eye: No discharge. Cardiovascular: Rate and Rhythm: Normal rate and regular rhythm. Heart sounds: Murmur heard. Pulmonary: Breath sounds: No wheezing or rales. Abdominal: General: Abdomen is flat. Bowel sounds are normal. There is no distension. Negative melendez sign. Tenderness: There is no abdominal tenderness. Musculoskeletal: Right lower leg: Edema present. Left lower leg: Edema present. Skin: Findings: Bruising present. Neurological: Mental Status: He is alert. LABS: Recent Labs 05/30/24 1222 06/01/24 1341 NA 136 138 K 4.4 4.7 CL 114* 109* CO2 17* 22 BUN 42* 37* CREATININE 1.88* 2.05* GLUCOSE 124* 113* CALCIUM 8.4 8.7 Recent Labs 05/30/24 1222 06/01/24 1341 WBC 7.7 6.7 RBC 4.56 4.64 HGB 14.5 14.8 HCT 44.7 46.3 MCV 98.0 99.8* MCH 31.8 31.9 MCHC 32.4 32.0 RDW 14.1 14.1 PLT 204 200 MPV 10.6 10.5 Discharge Medications: Medication List START taking these medications cholecalciferol 50 MCG (1999) tablet Commonly known as: Vitamin D-3 Take 2 tablets (4,000 Units) by mouth daily. Start taking on: June 02, 2024 hydrALAZINE 25 MG tablet Commonly known as: Apresoline Take 1 tablet (25 mg) by mouth 3 times daily. isosorbide dinitrate 20 MG tablet Commonly known as: Isordil Take 1 tablet (20 mg) by mouth 3 times daily. sodium bicarbonate 650 MG tablet Take 2 tablets (1,300 mg) by mouth 2 times daily. CHANGE how you take these medications carvedilol 25 MG tablet Commonly known as: Coreg Take 1 tablet (25 mg) by mouth 2 times daily (with meals). What changed: medication strength how much to take furosemide 40 MG tablet Commonly known as: Lasix Take 1 tablet (40 mg) by mouth Daily as needed (Weight gain >2 lbs in 2 days, or increased shortness of breath). What changed: medication strength how much to take when to take this reasons to take this CONTINUE taking these medications clopidogrel 75 MG tablet Commonly known as: Plavix Take 1 tablet (75 mg) by mouth daily. STOP taking these medications losartan 100 MG tablet Commonly known as: Cozaar rosuvastatin 10 MG tablet Commonly known as: Crestor spironolactone 25 MG tablet Commonly known as: Aldactone torsemide 20 MG tablet Commonly known as: Demadex Where to Get Your Medications These medications were sent to [facility]/pharmacy #[id number] [place] [phone] carvedilol 25 MG tablet cholecalciferol 50 MCG (1999) tablet clopidogrel 75 MG tablet furosemide 40 MG tablet hydrALAZINE 25 MG tablet isosorbide dinitrate 20 MG tablet sodium bicarbonate 650 MG tablet Recommended Follow-up: Sergei Astudillo MD [address] [place], [place] [id number] Follow up The heart failure/cardiology office will call you to scheduled follow-up. [address] [place] [address] Follow up If you cannot get insurance, please call [facility] at [phone] and tell them you need follow-up with Dr. Conklin for your heart failure. Maritza Linn, CURRICULUM DIRECTOR - WHITING MACHINE OPERATOR [address] [place] [address] [address] [place] [address] Follow up in 1 week(s) Steven Bellamy MD 201 [facility] 10 [facility] [id number] Schedule an appointment as soon as possible for a visit in 1 week(s) Hospital follow up, HIDA arrangement [facility] [place] 201 [facility] 10 [facility] [id number] Complexity of Follow up: [] Moderate Complexity: follow up within 7-14 calendar days ([id number]) [x] Severe Complexity: follow up within 7 calendar days ([id number]) Follow up Testing, Pending results or Referrals at Transitional Care Visit: [x] Yes - MRI pending and patient to follow up with smith in one weeks time. [] no Instructions to MA: Please call patient on day after discharge (must document patient contacted within 2 business days of discharge). Follow up questions for MA: 1. Did you get medications filled and taking them as instructed from discharge? 2. Are you following your discharge instructions from your hospital stay? 3. Please confirm patient is scheduled for a follow up appointment within the above time frame. Signed: Mary Ellen Brito MD Division of Hospitalist Medicine Acute care solutions 06/01/2024, 3:59 PM documented in this [facility]12-03-2024 Nurse Note* More Rojas RN - 06/01/2024 10:41 AM EST At this time, the patient is refusing to have labs completed, as well as stating that he will not be willing to stay over night for the HIDA scan. Nuclear med will not have a dose available to complete the testing until tomorrow. Dr. Brito is aware that they will not be able to perform the test.Patient is stating that he will be leaving tonight, regardless of if he is discharged or not. [id number] of Present illness Narrative* Morgan Ulloa, CURRICULUM DIRECTOR - WHITING MACHINE OPERATOR - 06/01/2024 9:59 AM EST [facility] [place] [facility] Cardiology /Electrophysiology Progress Note HPI / Interval History: Carlo Medina, 44 year old male presented to [facility] with shortness of breath, nausea, vomiting and acute decompensated heart failure. He was recently admitted to [facility] and diagnosed with probable NICM- EF-30% per Echo 02/29/2024 with moderate mitral regurgitation as well as probable CKD. CTA of his chest 03/2024 did not show evidence of coronary calcification. Pt admitted he had stopped taking his GDMT including torsemide as an outpatient as he felt it caused nausea and vomiting. Unfortunately, his nausea and vomiting did not resolve with stopping the medication. He was felt to be dry on admission. He was given IV fluids and then became mildly volume overloaded. He is now getting or al lasix on an as needed basis. He states his abdominal discomfort/nausea is much improved. His ASTand ALT has been elevated-70/160. He had an abdominal ultrasound was completed 05/31/2024 noting a positive Melendez sign and findings concerning for cholecystitis. Findings discussed with attending . Pt now NPO and a HIDA scan ordered. He has a family history of heart failure and his father who of heart failure at an unknown age. His older brother was diagnosed with dilated cardiomyopathy around age 55. Pt denies SOB. States he is feeling well. Denies chest pain or orthopnea. Pt requests to follow up at the [facility], states he is unable to follow up at [facility] office-it is too far for mygirlfriend to drive. Assessment/Plan HF NYHA Class [] I [x] II [] III [] IV []Unable to assess [] N/A NICM HFrEF- Stage C, Class II, EF 30% per TTE 02/2024 -appears euvolemic on exam today and has no current HF symptoms - pt states he will not follow up at [facility]- too far to drive. Follow up arranged [facility] [place] office 06/08/2024 at 9:30 am. - continue carvedilol 25 mg p.o. twice daily -Continue hydralazine 25 mg p.o. 3 times daily -Continue isosorbide 20 mg p.o. 3 times daily - pt to take lasix 40 mg daily on an as needed basis after DC -Not currently a candidate for ACEi, ARB, ARNI, AA due to SCHUYLER on CKD -HF self care reviewed -lack of insurance is a barrier to care and case management and social work associate have been consultedto assist with obtaining insurance 2. Elevated LFTs - Abdominal US findings concerning for cholecystitis. HIDA scan ordered per primary service - may also have been attributed to hepatic congestion, poor perfusion 3. SCHUYLER on CKD - creatinine stable, also followed per Nephrology. 4. NSVT- no recurrence last 24 hours - Mg and K+ acceptable - continue coreg as above - would check OP sleep study 5. Elevated troponin- no evidence of ACS -Troponin 0.05 and 0.03 -Likely elevated due to heart failure and SCHUYLER 6. Disposition- follow up arrange [facility] [place] office 06/08/2024 at 9:30 am with myself -If he cannot obtain insurance, he can follow-up with Dr. Conklin at [facility]. - pt states if possible he does not wish to follow up in the [facility] office due to transportation. Medications: carvedilol, 25 mg, Oral, BID WC cholecalciferol, 4,000 Units, Oral, Daily hydrALAZINE, 25 mg, Oral, TID influenza, 0.5 mL, IntraMUSCular, Prior to discharge isosorbide dinitrate, 20 mg, Oral, TID sodium bicarbonate, 1,300 mg, Oral, BID Infusion Medications: Physical Examination: Vitals: 05/31/24 2251 05/31/24 2337 06/01/24 0805 06/01/24 0842 BP: 118/85 129/97 (!) 132/101 BP Location: Left arm Patient Position: Lying Pulse: 100 108 Resp: 18 16 Temp: 36.1 C (97 F) (!) 35.6 C (96 F) TempSrc: Temporal Temporal SpO2: 98% 98% Weight: Height: Intake/Output Summary (Last 24 hours) at 06/01/2024 1000 Last data filed at 06/01/2024 0934 Gross per 24 hour Intake 500 ml Output -- Net 500 ml Patient Vitals for the past 168 hrs: Weight 05/28/24 1441 180 lb (81.6 kg) Physical Exam Constitutional: NAD Psychiatric: Alert. Medical insight is good Neck: No JVD Respiratory: Lungs are clear anteriorly Heart: regular, heart rate elevated-low 100;s ; Nl S1 and S2, no murmur, no rub, gallop Abdomen: NABS; soft, non-tender, non-distended. Denies present symptoms of abdominal pain Extremities: no LE edema Skin: Warm to touch and well perfused Laboratory Tests: Recent Labs 05/30/24 1222 NA 136 K 4.4 CL 114* CO2 17* BUN 42* CREATININE 1.88* Recent Labs 05/30/24 1222 WBC 7.7 HGB 14.5 HCT 44.7 MCV 98.0 PLT 204 No results for input(s): CKTOTAL, CKMB, CKMBINDEX, TROPONINI in the last 72 hours. No results for input(s): BNP in the last 72 hours. No results for input(s): TRIG, HDL, LDLCALC, CHOL in the last 72 hours. No results found for: LDLCHOLESTER Lab Results Component Value Date TSH 0.820 05/28/2024 EF BP Date Value Ref Range Status 02/29/2024 30 (A) 55 - 100 % Final 02/28/24 TRANSTHORACIC ECHOCARDIOGRAM (TTE) COMPLETE (CONTRAST/BUBBLE/3D PRN) 02/29/2024 9:39 AM (Final) Interpretation Summary Left Ventricle: Left ventricle is mildly dilated. Mildly increased wall thickness. Mild septal thickening. Moderately reduced left ventricular systolic function. EF by 2D Simpsons Biplane is 30%. Global longitudinal strain is -7.1%. Severe global hypokinesis present. Grade II diastolic dysfunction with increased LAP. Right Ventricle: Right ventricle size is normal. Normal systolic function. TAPSE is 2.5 cm. Aortic Valve: No stenosis. AV mean gradient is 3 mmHg. AV peak velocity is 1.2 m/s. LVOT:AV VTI Index is 0.76. Mitral Valve: Moderate (2+) regurgitation. Tricuspid Valve: RVSP is 23 mmHg. Left Atrium: Left atrium is moderately dilated. LA Vol Index A/L is 42 mL/m2. Aorta: Normal sized sinuses of Valsalva and ascending aorta. Sinuses of Valsalva diameter is 3.2 cm. Ao ascending diameter is 3.3 cm. IVC/SVC: IVC diameter is normal and decreases greater than 50% during inspiration; therefore the estimated right atrial pressure is normal (~3 mmHg). Signed by: Radha Parikh on 02/29/2024 9:39 AM Other reports reviewed: Cardiac Tests: EC05/28/2024- IMPRESSION: Sinus tachycardia Probable left atrial enlargement Abnormal R-wave progression, late transition Left ventricular hypertrophy Nonspecific T abnormalities, lateral leads Anterior ST elevation, probably due to LVH Electronically Signed On 05-28-2024 09:01:45 EST by Izaiah Martins Tracing reviewed. Telemetry findings reviewed: SR- 101 EF BP Date Value Ref Range Status 02/29/2024 30 (A) 55 - 100 % Final THOMAS Mi CNP Date Of Service 06/01/2024 * THOMAS Mayer CNP - 05/31/2024 1:03 PM EST [facility] Progress Note Subjective/ 44 y.o. year old male who we are seeing in consultation for SCHUYLER. NAEON Resting in bed BP is stable Refused labs + meds this morning again Has been noncompliant with plan of care despite extensive education No edema Denies SOB/CP Eating his meals, but states he isn't enjoying it No issues with UOP No other new issues at this time ROS done and negative unless mentioned as above No change in PFSH All data labs/interval notes and overnight issues are reviewed Objective/ Vitals: 05/31/24 0012 05/31/24 0423 05/31/24 0815 05/31/24 1208 BP: 126/94 132/98 132/96 117/84 BP Location: Left arm Left arm Left arm Patient Position: Lying Lying Lying Pulse: 101 101 102 107 Resp: 16 16 19 Temp: 36.3 C (97.3 F) 36.4 C (97.5 F) 36.5 C (97.7 F) 36.1 C (97 F) TempSrc: Temporal Temporal Temporal Temporal SpO2: 99% 99% 99% 97% Weight: Height: Intake/Output Summary (Last 24 hours) at 05/31/2024 1303 Last data filed at 05/30/2024 2048 Gross per 24 hour Intake 100 ml Output -- Net 100 ml carvedilol, 25 mg, Oral, BID WC ergocalciferol, 1.25 mg, Oral, Weekly hydrALAZINE, 25 mg, Oral, TID influenza, 0.5 mL, IntraMUSCular, Prior to discharge isosorbide dinitrate, 20 mg, Oral, TID sodium bicarbonate, 1,300 mg, Oral, BID PRN medications: acetaminophen OR acetaminophen, ondansetron ODT OR ondansetron, polyethylene glycol (PEG) 3350 Constitutional: Alert, awake Eyes: No icterus, no pallor HEENT: no pallor/cyanosis or icterus, JVD+ Cardiovascular: S1, S2 without m/r/g Respiratory: CTA B without w/r/r GI: +bs, soft, nt : agustin -ve Ext: traceBLE edema Neck: supple, no thyroid enlargement, no JVD elevation Skin: warm, moist, no rashes Data: Results from last 7 days Lab Units 05/30/24 1222 05/29/24 0550 05/28/24 1249 SODIUM mmol/L 136 136 139 POTASSIUM mmol/L 4.4 4.6 4.6 CHLORIDE mmol/L 114* 114* 116* CO2 mmol/L 17* 18* 14* BUN mg/dL 42* 41* 34* CREATININE mg/dL 1.88* 1.73* 1.74* GLUCOSE mg/dL 124* 113* 96 CALCIUM mg/dL 8.4 8.2* 8.3* Results from last 7 days Lab Units 05/30/24 1222 05/29/24 0550 05/28/24 0811 WBC AUTO 10*3/uL 7.7 6.3 5.4 HEMOGLOBIN g/dL 14.5 13.5 15.7 HEMOGLOBIN BG g/dl -- -- 16.6 HEMATOCRIT % 44.7 42.8 48.3 PLATELETS 10*3/uL 204 160 205 Assessment/Plan SCHUYLER/ATN, resolved (N17.0) NAGMA (E87.22) CKD3b (N18.32) Chronic HFrEF (I50.23) Noncompliance with medications Failure to thrive Depression? Nausea and vomiting Weight loss Plan: -Scr stable at bl~1.5-1.7, non-oliguric, BP stable -Ok for diuresis per cardiology at this time, no diuresis currently ordered -LIZET -ve for acute process, c/w medical renal disease -Refusing labs and medications frequently -Increase HCO3 tabs to 1300 mg daily -Vitamin D is <13 and PTH is high as a result, patient is refusing high dose ergocalciferol since it cannot be crushed -Will start on 4000 units daily for supplement, ok to crush pills -Renal diet, currently NPO -Avoid nephrotoxins and contrast dye -Dose all meds per current eGFR -Noted large noncompliance with medications and puts him at high risk for decompensation -Decreased cardiac output could be the cause of his fatigue and poor appetite, d/w him need to be compliant with his heart failure medications to improve his quality of life -Alternatively, depression could be a cause of his poor appetite as well -All other care per primary team -We will follow closely with you Thank you for the consult and the opportunity to participate in the care of this patient. Please donot hesitate to contact us with any questions or concerns. Maritza Linn APRN, WHITING MACHINE OPERATOR [facility], [facility] [phone] Cosigned by Anand Mccullough MD at 05/31/2024 9:46 PM EST * Mary Ellen Brito MD - 05/31/2024 12:08 PM EST Hospitalist Progress Note 05/31/2024 Subjective: Admit Date: 05/28/2024 PCP: No primary care provider on file. Room#: B2-267/B2267 B BRIEF HOSPITAL COURSE: ajay is a 44 y.o. male with history of HFrEF (echo in February of this year with left ventricular ejection fraction of 30% and 2+ mitral regurgitation), Hypertension and hyperlipidemia, who was discharge in February. States that since he got discharged he has been taking his heart failure medications regularly but has not been able to follow up with provider due to not having insurance > and his appointments getting cancelled before he could go. Overall feels tired, fatigued, no appetite. After he had a 1L bolus in the ED - he got his appetite back for the first time in a while. In the ED, HR 120, R 18, SBP 179/121, 100%, T 36.9 Labs show VBG7.35/35/37/19, Na 141, Cl 114, Creatinine 2.06, GFR 39.5, MG 2.4, AST 48, ALT 129, TB 1.8, Trop 0.051, BNP 19,900, CBC unremarkable. Concentrated urine, with increase proteinuria CXR showed no acute process. Family was admitted for SCHUYLER in the setting of overdiuresis combination with acute heart failure. Cardiology was consulted believe SCHUYLER in the setting of acute cardiorenal syndrome because of his low cardiac output because he still had leg JVD pressure. They were recommending Transfer to cardiology for heart failure unit for aggressive invasive evaluation and management, previously declined, as he feels overwhelmed with increased medication other changes in his life. Interval History: As noted. Feels he no longer has a sense of tightness in his chest, and feels like his appetite hasgone up. That he had a long conversation with cardiology and they are trying to set him up with discharge culinary assistant. He was notified that if needed Dr. Sierra operates at [facility] and can follow-up with cardiology as outpatient at that time. No fever or chills, no worsening shortness of breath at rest or on exertion No overnight issues. Case and plan discussed with patient and bedside nurse. All questions answered. NPO diet with enteral medications 24HR INTAKE/OUTPUT: Intake/Output Summary (Last 24 hours) at 05/31/2024 1208 Last data filed at 05/30/20242047 Gross per 24 hour Intake 100 ml Output -- Net 100 ml Past Medical History: Past Medical History: Diagnosis Date CHF (congestive heart failure) ([facility]) Hypercholesteremia Hypertension LABS: CBC: Recent Labs 05/29/24 0550 05/30/24 1222 WBC 6.3 7.7 RBC 4.24* 4.56 HGB 13.5 14.5 HCT 42.8 44.7 MCV 100.9* 98.0 RDW 14.0 14.1 PLT 160 204 BMP: Recent Labs 05/28/24 1249 05/29/24 0550 05/30/24 1222 NA 139 136 136 K 4.6 4.6 4.4 CL 116* 114* 114* CO2 14* 18* 17* BUN 34* 41* 42* CREATININE 1.74* 1.73* 1.88* GLUCOSE 96 113* 124* CALCIUM 8.3* 8.2* 8.4 ANIONGAP 10 4 6 LIVER PROFILE: Recent Labs 05/29/24 0550 05/30/24 1222 AST 49* 70* ALT 114* 160* BILITOT 1.3 1.1 ALKPHOS 105 108 PROT 5.5* 5.6* PT/INR: No results for input(s): PROTIME, INR in the last 72 hours. CARDIAC ENZYMES: Recent Labs 05/28/24 1249 TROPONINI 0.037* Procalcitonin: No results found for: PROCAL COVID-19 PCR: No results for input(s): COVID19 in the last 72 hours. Objective: Vitals: BP 132/96 Pulse 102 Temp 36.5 C (97.7 F) (Temporal) Resp 16 Ht 6' 1 (1.854 m) Wt180 lb (81.6 kg) SpO2 99% BMI 23.75 kg/m Pulse Ox: SpO2 Av % Min: 98 % Max: 100 % Supplemental O2: Physical Exam Vitals and nursing note reviewed. Constitutional: Appearance: Normal appearance. HENT: Head: Normocephalic. Nose: No congestion or rhinorrhea. Mouth/Throat: Mouth: Mucous membranes are dry. Eyes: General: Right eye: No discharge. Cardiovascular: Rate and Rhythm: Normal rate and regular rhythm. Heart sounds: Murmur heard. Comments: JVD Pulmonary: Breath sounds: No wheezing or rales. Abdominal: General: Abdomen is flat. Bowel sounds are normal. There is no distension. Tenderness: There is no abdominal tenderness. Musculoskeletal: Right lower leg: Edema present. Left lower leg: Edema present. Skin: Findings: Bruising present. Neurological: Mental Status: He is alert. Medications: Scheduled PRN carvedilol, 25 mg, Oral, BID WC ergocalciferol, 1.25 mg, Oral, Weekly hydrALAZINE, 25 mg, Oral, TID influenza, 0.5 mL, IntraMUSCular, Prior to discharge isosorbide dinitrate, 20 mg, Oral, TID sodium bicarbonate, 1,300 mg, Oral, BID PRN medications: acetaminophen OR acetaminophen, ondansetron ODT OR ondansetron, polyethylene glycol (PEG) 3350 Continuous Assessment Data: (CAT1) Reviewed 3 or more notes from different specialty or health system (each=1). (CAT1) Reviewed 3 or more labs/studies previously ordered by me not previously counted (each=1, panels count as 1). (LOW: 2x CAT1 or independent historian MOD: 3x CAT1 or 1x CAT3 EXTENSIVE: 3x CAT1 and 1x CAT3) Acute, acute on chronic, unstable/uncontrolled chronic problems/diagnoses: HFrEF 1L NS in Ed, 100 cc/hr for 10 hours > s/p Carvedilol 25 mg PO BID HOLD torsemide, lasix and losartan Hydralazine 25 mg p.o. 3 times daily Isosorbide dinitrate 20 mg p.o. 3 times daily Regular diet - will adjust to low salt diet once tolerating diet Daily in and out Standing weights Cardiology consult -recommending possible transfer to [facility] for more invasive cardiovascular workup given the intensity of heart failure and the young age Continue daily labs SCHUYLER and ATN on CKD 3b Obtain urine studies HOLD diuretics and ARN Consider alternative HTN treatment in [facility]. Nephrology consulted Added sodium bicarbonate 650 mg p.o. twice daily Elevated troponin - demand ischemia Metabolic acidosis No insurance for follow up SW and Hypertension Nausea and emesis - improved on evaluations Volume depletion Moderate malnutrition Plan As a result of the above findings & factors, the following mgmt was pursued: - 05/30-vital signs and labs reviewed, long conversation regarding cardiac medications and their purpose and the importance of taking medications to help with his heart failure, discussed mirtazapine to increase his appetite, and possible depression associated with new diagnosis at this time does not want to make any adjustments. Appreciate cardiology and nephrology's notes will reapproach cardiology recommendations for transfer to [facility] tomorrow. He was feeling little bit overwhelmed during discussions today, - am labs, replace lytes prn -05/31-patient feeling slightly better than yesterday, to notice some depression, would like to recommend outpatient counselor. He declined at this time. States he does not know how to swallow pills and does not want to be evaluated by CUPOLA MELTER to see if he can be educated on how to swallow. Will continue to adjust medication monitoring electrolytes. If stable tomorrow with final recommendations for home medication regiment will possibly discharge tomorrow. Cardiology will need to follow-up outpatient and no need to transfer to [facility] anymore - PT/OT/CM/SW - delirium precautions: increase activity and limit nighttime disturbances - DVT prophylaxis: encourage ambulation Complexity: Chronic illness with mild to moderate exacerbation, progression, or side effect of tx (MOD). Risk: Admission to hospital-level care was considered or occurred (HIGH). Advance Directive: Full Code Anticipated Discharge - Date - 06/01 - Location - [facility] - Pending the following - clinical improvement Total time spent (which include face to face and non face to face encounters) : 55 minutes Toxic drug monitoring/narrow therapeutic index drug monitoring : # Drug name : NA # Route administered : NA # Method of monitoring : NA Extended Emergency Contact Information Primary Emergency Contact: Indira eMdina Mobile Relation: Sister Secondary Emergency Contact: Kaitlin Hicks Mobile Relation: Significant Other Mary Ellen Brito MD Division of Hospitalist Medicine [facility] [facility] * Lizzette Burger, CURRICULUM DIRECTOR - WHITING MACHINE OPERATOR - 05/31/2024 8:11 AM EST [facility] [place] [facility] [place] [facility] Cardiology /Electrophysiology Progress Note HPI / Interval History: Carlo Medina has a history of recently diagnosed HFrEF likely due to NICM and probable CKD who presented to [facility] with shortness of breath, nausea, vomiting and acute decompensated heart failure. He was hospitalized at [facility] where he had an echocardiogram showing EF of 30% with moderate mitral regurgitation. CTA chest did not show coronary artery calcification. He was diuresed and placed on GDMT but stopped taking torsemide as an outpatient as he felt it caused nausea and vomiting. Unfortunately,his nausea and vomiting did not resolve with stopping the medication. He has a family history of heart failure and his father who of heart failure at an unknown age. His older brother was diagnosed with dilated cardiomyopathy around age 55. Lab work on admission showed SCHUYLER on probable CKD. He was felt to be dry by nephrology and given IV fluids and then when seen by Dr. Bearden he was felt to be volume overloaded. Upon reviewing hischart, he initially declined IV Lasix, hydralazine and isosorbide but has been more agreeable and took his meds yesterday. He continues to decline po torsemide as he feels it was making him sick. He will be agreeable to polasix as OP if needed. This morning, he states he is feeling better. He was able to eat his dinner last night and breakfast this AM and states his chocolate milk tasted normal. He denies CP, SOB, PND, orthopnea, palpitations, syncope. He continues to have trace lower extremity edema. He is in better spirits this AM. Assessment/Plan HF NYHA Class [] I [x] II [] III [] IV []Unable to assess [] N/A HFrEF 2/2 probable NICM, Stage C, Class II, EF 30% per TTE 02/2024 -Daily weight not recorded - I&O not accurate - appears euvolemic on exam today and has no current HF symptoms - no current need to transfer to [facility] HF service, we can titrate medications and do further workup as OP -continue carvedilol 25 mg p.o. twice daily -Continue hydralazine 25 mg p.o. 3 times daily -Continue isosorbide 20 mg p.o. 3 times daily -Not currently a candidate for ACEi, ARB, ARNI, AA due to SCHUYLER on CKD -HF self care reviewed - he initially declined GDMT, but after several conversations over his hospital stay he is now agreeable, will have to titrate slowly to encourage compliance - lack of insurance is a barrier to care and case management and social work associate have been consulted to assist with obtaining insurance Elevated LFTs -Possibly due to hepatic congestion, poor perfusion -will order abdominal US (discussed with Dr. Chang) -Would continue to trend SCHUYLER on CKD -Per nephrology baseline creatinine 1.5-1.7 -Creatinine 2.06 on admission and stable 1.88 today -Nephrology following NSVT - 5 beat run NSVT noted (usually occurs during sleep) - Mg and K+ acceptable - continue coreg as above - would check OP sleep study Elevated troponin -Troponin 0.05 and 0.03 -Not consistent with ACS -Likely elevated due to heart failure and SCHUYLER Poor appetite - per primary team - states symptoms are improving - check US abdomen as above Dispo: we will continue to follow while here and titrate medical therapy, but is stable from cardiac standpoint for discharge after abdominal US. Dr. Astudillo and HF team will contact patient for follow-up. If he cannot obtain insurance, he can follow-up with Dr. Conklin at [facility] Medications: carvedilol, 25 mg, Oral, BID WC ergocalciferol, 1.25 mg, Oral, Weekly hydrALAZINE, 25 mg, Oral, TID influenza, 0.5 mL, IntraMUSCular, Prior to discharge isosorbide dinitrate, 20 mg, Oral, TID sodium bicarbonate, 650 mg, Oral, BID Infusion Medications: Physical Examination: Vitals: 05/30/24 1603 05/30/24 1940 05/31/24 0012 05/31/24 0423 BP: 123/93 127/96 126/94 132/98 BP Location: Left arm Left arm Left arm Patient Position: Lying Lying Lying Pulse: 51 96 101 101 Resp: 18 16 16 16 Temp: (!) 35.9 C (96.6 F) 36.1 C (96.9 F) 36.3 C (97.3 F) 36.4 C (97.5 F) TempSrc: Temporal Temporal Temporal Temporal SpO2: 98% 100% 99% 99% Weight: Height: Intake/Output Summary (Last 24 hours) at 05/31/2024 0811 Last data filed at 05/30/2024 2048 Gross per 24 hour Intake 100 ml Output -- Net 100 ml Patient Vitals for the past 168 hrs: Weight 05/28/24 1441 180 lb (81.6 kg) Physical Exam Vitals reviewed. Constitutional: Appearance: Normal appearance. HENT: Head: Normocephalic and atraumatic. Neck: Vascular: No JVD. Cardiovascular: Rate and Rhythm: Normal rate and regular rhythm. No extrasystoles are present. Heart sounds: Murmur heard. Systolic murmur is present with a grade of 2/6. Pulmonary: Effort: Pulmonary effort is normal. Breath sounds: Normal breath sounds. Abdominal: General: Abdomen is flat and protuberant. Bowel sounds are normal. Palpations: Abdomen is soft. Tenderness: There is no abdominal tenderness. Musculoskeletal: Right lower leg: No edema. Left lower leg: Edema (trace) present. Skin: General: Skin is warm and dry. Neurological: Mental Status: He is alert and oriented to person, place, and time. Psychiatric: Attention and Perception: Attention normal. Speech: Speech normal. Laboratory Tests: Recent Labs 05/28/24 1249 05/29/24 0550 05/30/24 1222 NA 139 136 136 K 4.6 4.6 4.4 CL 116* 114* 114* CO2 14* 18* 17* BUN 34* 41* 42* CREATININE 1.74* 1.73* 1.88* Recent Labs 05/29/24 0550 05/30/24 1222 WBC 6.3 7.7 HGB 13.5 14.5 HCT 42.8 44.7 MCV 100.9* 98.0 PLT 160 204 Recent Labs 05/28/24 1249 TROPONINI 0.037* No results for input(s): BNP in the last 72 hours. No results for input(s): TRIG, HDL, LDLCALC, CHOL in the last 72 hours. No results found for: LDLCHOLESTER Lab Results Component Value Date TSH 0.820 05/28/2024 EF BP Date Value Ref Range Status 02/29/2024 30 (A) 55 - 100 % Final 02/28/24 TRANSTHORACIC ECHOCARDIOGRAM (TTE) COMPLETE (CONTRAST/BUBBLE/3D PRN) 02/29/2024 9:39 AM (Final) Interpretation Summary Left Ventricle: Left ventricle is mildly dilated. Mildly increased wall thickness. Mild septal thickening. Moderately reduced left ventricular systolic function. EF by 2D Simpsons Biplane is 30%. Global longitudinal strain is -7.1%. Severe global hypokinesis present. Grade II diastolic dysfunction with increased LAP. Right Ventricle: Right ventricle size is normal. Normal systolic function. TAPSE is 2.5 cm. Aortic Valve: No stenosis. AV mean gradient is 3 mmHg. AV peak velocity is 1.2 m/s. LVOT:AV VTI Index is 0.76. Mitral Valve: Moderate (2+) regurgitation. Tricuspid Valve: RVSP is 23 mmHg. Left Atrium: Left atrium is moderately dilated. LA Vol Index A/L is 42 mL/m2. Aorta: Normal sized sinuses of Valsalva and ascending aorta. Sinuses of Valsalva diameter is 3.2 cm. Ao ascending diameter is 3.3 cm. IVC/SVC: IVC diameter is normal and decreases greater than 50% during inspiration; therefore the estimated right atrial pressure is normal (~3 mmHg). Signed by: Radha Parikh on 02/29/2024 9:39 AM Other reports reviewed: Cardiac Tests: Telemetry findings reviewed: SR/ST with NSVT EF BP Date Value Ref Range Status 02/29/2024 30 (A) 55 - 100 % Final THOMAS Argueta CNP Date Of Service 05/31/2024 * Mary Ellen Brito MD - 05/30/2024 11:00 AM EST Hospitalist Progress Note 05/30/2024 Subjective: Admit Date: 05/28/2024 PCP: No primary care provider on file. Room#: B2-267/B2-267 B BRIEF HOSPITAL COURSE: ajay is a 44 y.o. male with history of HFrEF (echo in February of this year with left ventricular ejection fraction of 30% and 2+ mitral regurgitation), Hypertension and hyperlipidemia, who was discharge in February. States that since he got discharged he has been taking his heart failure medications regularly but has not been able to follow up with provider due to not having insurance > and his appointments getting cancelled before he could go. Overall feels tired, fatigued, no appetite. After he had a 1L bolus in the ED - he got his appetite back for the first time in a while. In the ED, HR 120, R 18, SBP 179/121, 100%, T 36.9 Labs show VBG7.35/35/37/19, Na 141, Cl 114, Creatinine 2.06, GFR 39.5, MG 2.4, AST 48, ALT 129, TB 1.8, Trop 0.051, BNP 19,900, CBC unremarkable. Concentrated urine, with increase proteinuria CXR showed no acute process. Family was admitted for SCHUYLER in the setting of overdiuresis combination with acute heart failure. Cardiology was consulted believe SCHUYLER in the setting of acute cardiorenal syndrome because of his low cardiac output because he still had leg JVD pressure. They were recommending Transfer to cardiology for heart failure unit for aggressive invasive evaluation and management, previously declined, as he feels overwhelmed with increased medication other changes in his life. Interval History: Patient frustrated with his lack of appetite. Discussed with girlfriend at bedside and had a long conversation about what heart failure means and the reason behind decreased appetite, and all other concerns at this time. Still feel a bit hesitant about the increased need for medication and feels the medications have been making him feel unwell. Discussed each medication one by one and their indication and how they can help with the heart failure. Did mention that cardiology was requesting to transfer to [facility] for greater workup. At this time he does not want to feel this way and is tired all the time. Discussed putting on mirtazipine but would like to decline at this time. No fever or chills. Feels dry in the mouth. And just feels no desire to eat lately - but will finish meals if placed infront of him - if smaller in size. No overnight issues. Case and plan discussed with patient and bedside nurse. All questions answered. Adult diet Regular 24HR INTAKE/OUTPUT: Intake/Output Summary (Last 24 hours) at 05/30/2024 1434 Last data filed at 05/30/2024 0136 Gross per 24 hour Intake 100 ml Output 750 ml Net -650 ml Past Medical History: Past Medical History: Diagnosis Date CHF (congestive heart failure) ([facility]) Hypercholesteremia Hypertension LABS: CBC: Recent Labs 05/28/24 0811 05/29/24 0550 05/30/24 1222 WBC 5.4 6.3 7.7 RBC 4.92 4.24* 4.56 HGB 16.6 15.7 13.5 14.5 HCT 48.3 42.8 44.7 MCV 98.2 100.9* 98.0 RDW 13.9 14.0 14.1 PLT 205 160 204 BMP: Recent Labs 05/28/24 1249 05/29/24 0550 05/30/24 1222 NA 139 136 136 K 4.6 4.6 4.4 CL 116* 114* 114* CO2 14* 18* 17* BUN 34* 41* 42* CREATININE 1.74* 1.73* 1.88* GLUCOSE 96 113* 124* CALCIUM 8.3* 8.2* 8.4 ANIONGAP 10 4 6 LIVER PROFILE: Recent Labs 05/28/24 0811 05/29/24 0550 05/30/24 1222 AST 48* 49* 70* ALT 129* 114* 160* BILITOT 1.8* 1.3 1.1 ALKPHOS 104 105 108 PROT 6.8 5.5* 5.6* PT/INR: No results for input(s): PROTIME, INR in the last 72 hours. CARDIAC ENZYMES: Recent Labs 05/28/24 0811 05/28/24 1249 TROPONINI 0.051* 0.037* Procalcitonin: No results found for: PROCAL COVID-19 PCR: No results for input(s): COVID19 in the last 72 hours. Objective: Vitals: BP 113/81 Pulse 106 Temp 36 C (96.8 F) (Temporal) Resp 20 Ht 6' 1 (1.854 m) Wt 180 lb (81.6 kg) SpO2 98% BMI 23.75 kg/m Pulse Ox: SpO2 Av.3 % Min: 98 % Max: 100 % Supplemental O2: Physical Exam Vitals and nursing note reviewed. Constitutional: Appearance: Normal appearance. HENT: Head: Normocephalic. Nose: No congestion or rhinorrhea. Mouth/Throat: Mouth: Mucous membranes are dry. Eyes: General: Right eye: No discharge. Cardiovascular: Rate and Rhythm: Normal rate and regular rhythm. Heart sounds: Murmur heard. Comments: JVD Pulmonary: Breath sounds: No wheezing or rales. Abdominal: General: Abdomen is flat. Bowel sounds are normal. There is no distension. Tenderness: There is no abdominal tenderness. Musculoskeletal: Right lower leg: No edema. Skin: Findings: Bruising present. Neurological: Mental Status: He is alert. Medications: Scheduled PRN carvedilol, 25 mg, Oral, BID WC hydrALAZINE, 25 mg, Oral, TID influenza, 0.5 mL, IntraMUSCular, Prior to discharge isosorbide dinitrate, 20 mg, Oral, TID sodium bicarbonate, 650 mg, Oral, BID PRN medications: acetaminophen OR acetaminophen, ondansetron ODT OR ondansetron, polyethylene glycol (PEG) 3350 Continuous Assessment Data: (CAT1) Reviewed 3 or more notes from different specialty or health system (each=1). (CAT1) Reviewed 3 or more labs/studies previously ordered by me not previously counted (each=1, panels count as 1). (LOW: 2x CAT1 or independent historian MOD: 3x CAT1 or 1x CAT3 EXTENSIVE: 3x CAT1 and 1x CAT3) Acute, acute on chronic, unstable/uncontrolled chronic problems/diagnoses: HFrEF 1L NS in Ed, 100 cc/hr for 10 hours > s/p Carvedilol 25 mg PO BID HOLD torsemide, lasix and losartan Hydralazine 25 mg p.o. 3 times daily Isosorbide dinitrate 20 mg p.o. 3 times daily Regular diet - will adjust to low salt diet once tolerating diet Daily in and out Standing weights Cardiology consult -recommending possible transfer to [facility] for more invasive cardiovascular workup given the intensity of heart failure and the young age Continue daily labs SCHUYLER and ATN on CKD 3b Obtain urine studies HOLD diuretics and ARN Consider alternative HTN treatment in [facility]. Nephrology consulted Added sodium bicarbonate 650 mg p.o. twice daily Metabolic acidosis No insurance for follow up SW and CM Hypertension Nausea and emesis - improved on evaluations Volume depletion Plan As a result of the above findings & factors, the following mgmt was pursued: - 05/30-vital signs and labs reviewed, long conversation regarding cardiac medications and their purpose and the importance of taking medications to help with his heart failure, discussed mirtazapine to increase his appetite, and possible depression associated with new diagnosis at this time does not want to make any adjustments. Appreciate cardiology and nephrology's notes will reapproach cardiology recommendations for transfer to [facility] tomorrow. He was feeling little bit overwhelmed during discussions today, - am labs, replace lytes prn - PT/OT/CM/SW - delirium precautions: increase activity and limit nighttime disturbances - DVT prophylaxis: encourage ambulation Complexity: Chronic illness with mild to moderate exacerbation, progression, or side effect of tx (MOD). Risk: Admission to hospital-level care was considered or occurred (HIGH). Advance Directive: Full Code Anticipated Discharge - Date - 05/31-3 - Location - [facility] - Pending the following - clinical improvement Total time spent (which include face to face and non face to face encounters) : 55 minutes Toxic drug monitoring/narrow therapeutic index drug monitoring : # Drug name : NA # Route administered : NA # Method of monitoring : NA Extended Emergency Contact Information Primary Emergency Contact: Indira Medina Mobile Relation: Sister Secondary Emergency Contact: Kaitlin Hicks Mobile Relation: Significant Other Mary Ellen Brito MD Division of Hospitalist Medicine [facility] * Maritza Linn, CURRICULUM DIRECTOR - WHITING MACHINE OPERATOR - 05/30/2024 10:47 AM EST [facility] Progress Note Subjective/ 44 y.o. year old male who we are seeing in consultation for SCHUYLER. NAEON Resting in bed BP is stable Refused labs + meds this morning Edema trace BLE Denies SOB/CP Appetite fair No issues with UOP No other new issues at this time ROS done and negative unless mentioned as above No change in PFSH All data labs/interval notes and overnight issues are reviewed Objective/ Vitals: 05/29/24 1611 05/29/24202305/30/24 0411 05/30/24 0943 BP: 122/90 118/92 (!) 138/109 113/81 BP Location: Left arm Patient Position: Lying Pulse: 101 54 100 106 Resp: 18 18 18 20 Temp: 36.2 C (97.1 F) 36.9 C (98.5 F) 36 C (96.8 F) TempSrc: Temporal Oral Temporal SpO2: 99% 100% 100% 98% Weight: Height: Intake/Output Summary (Last 24 hours) at 05/30/2024 1047 Last data filed at 05/30/2024 0136 Gross per 24 hour Intake 350 ml Output 1350 ml Net -1000 ml carvedilol, 25 mg, Oral, BID WC hydrALAZINE, 25 mg, Oral, TID influenza, 0.5 mL, IntraMUSCular, Prior to discharge isosorbide dinitrate, 20 mg, Oral, TID sodium bicarbonate, 650 mg, Oral, BID PRN medications: acetaminophen OR acetaminophen, ondansetron ODT OR ondansetron, polyethylene glycol (PEG) 3350 Constitutional: Alert, awake Eyes: No icterus, no pallor HEENT: no pallor/cyanosis or icterus, JVD+ Cardiovascular: S1, S2 without m/r/g Respiratory: CTA B without w/r/r GI: +bs, soft, nt : agustin -ve Ext: 1+ BLE edema Neck: supple, no thyroid enlargement, no JVD elevation Skin: warm, moist, no rashes Data: Results from last 7 days Lab Units 05/29/24 0550 05/28/24 1249 05/28/24 0811 SODIUM mmol/L 136 139 141 POTASSIUM mmol/L 4.6 4.6 4.6 CHLORIDE mmol/L 114* 116* 114* CO2 mmol/L 18* 14* 19* BUN mg/dL 41* 34* 38* CREATININE mg/dL 1.73* 1.74* 2.06* GLUCOSE mg/dL 113* 96 120* CALCIUM mg/dL 8.2* 8.3* 9.1 Results from last 7 days Lab Units 05/29/24 0550 05/28/24 0811 WBC AUTO 10*3/uL 6.3 5.4 HEMOGLOBIN g/dL 13.5 15.7 HEMOGLOBIN BG g/dl -- 16.6 HEMATOCRIT % 42.8 48.3 PLATELETS 10*3/uL 160 205 Assessment/Plan SCHUYLER/ATN (N17.0) NAGMA (E87.21) CKD3b (N18.32) Chronic HFrEF (I50.23) Noncompliance with medications Volume depletion Nausea and vomiting Weight loss Plan: -Scr stable at bl~1.5-1.7, non-oliguric, BP stable -Ok for diuresis per cardiology at this time, mildly hypervolemic on exam -SCHUYLER workup ordered for thoroughness, noted urine lytes likely to be skewed 2/2 CHF and/or diuresis -LIZET -ve for acute process, c/w medical renal disease -Low Na diet -C/w po HCO3 tabs, monitor volume status closely -Check PTH and vitamin D, check phos too -Avoid nephrotoxins and contrast dye -Dose all meds per current eGFR -All other care per primary team -Noted large noncompliance with medications and puts him at high risk for decompensation -Decreased cardiac output could be the cause of his fatigue and poor appetite, d/w him need to be compliant with his heart failure medications to improve his quality of life -We will follow closely with you Thank you for the consult and the opportunity to participate in the care of this patient. Please donot hesitate to contact us with any questions or concerns. Maritza Linn APRN, CNP [facility], [facility] [phone] Cosigned by Saul Briones MD at 05/30/2024 2:41 PM EST Associated attestation - Saul Briones MD - 05/30/2024 2:41 PM EST Notes reviewed and plan discussed with the DOUGHNUT MACHINE OPERATOR HELPER. Agree with above note except Any variance is noted below. Saul Briones MD [facility] [phone] * Lizzette Burger APRN - VIKKI - 05/30/2024 7:24 AM EST [facility] Cardiology /Electrophysiology Progress Note HPI / Interval History: Carlo Medina has a history of recently diagnosed HFrEF likely due to NICM and probable CKD who presented to [facility] with shortness of breath, nausea, vomiting and acute decompensated heart failure. He was hospitalized at [facility] where he had an echocardiogram showing EF of 30% with moderate mitral regurgitation. CTA chest did not show coronary artery calcification. He was diuresed and placed on GDMT but stopped taking torsemide as an outpatient as he felt it caused nausea and vomiting. Unfortunately,his nausea and vomiting did not resolve with stopping the medication. He has a family history of heart failure and his father who of heart failure at an unknown age. His older brother was diagnosed with dilated cardiomyopathy around age 55. Lab work on admission showed SCHUYLER on probable CKD. He was felt to be dry by nephrology and given IV fluids and then when seen by Dr. Niedermaier he was felt to be volume overloaded. Upon reviewing hischart, he declined IV Lasix, hydralazine and isosorbide last evening. He was given a dose of IV lasix 05/29 and creatinine is stable this AM. He continues to decline po torsemide as he feels it was making him sick. He did take one dose of hydralazine and isosorbide yesterday. This morning, he denies CP, SOB, PND, orthopnea, palpitations, syncope. He has trace lower extremity edema. He states he doesn't care about his heart or kidneys right now, I want to know why I do not have an appetite. Per his nurse, he ate all his dinner last night. Assessment/Plan HF NYHA Class [] I [] II [] III [] IV []Unable to assess [] N/A HFrEF 2/2 probable NICM, Stage C, Class II, EF 30% per TTE 02/2024 -Daily weight not recorded - I&O - 850 mL - appears euvolemic on exam today and has no current HF symptoms -continue carvedilol 25 mg p.o. twice daily -Continue hydralazine 25 mg p.o. 3 times daily (he states he is agreeable to take today) -Continue isosorbide 20 mg p.o. 3 times daily (he states he is agreeable to take today) -Not currently a candidate for ACEi, ARB, ARNI, AA due to SCHUYLER on CKD -HF self care reviewed -he states he does not want to take all these medications as he feels they are making him sick, we discussed his low EF and the importance of medical therapy and risks of stopping medications including worsening EF, recurrent HF and , he verbalizes understanding and states he is willing to take coreg, hydralazine and isosorbide but is not willing to take any additional medications Elevated LFTs -Possibly due to hepatic congestion - consider abdominal US (will defer to primary team) -Would continue to trend SCHUYLER on CKD -Per nephrology baseline creatinine 1.5-1.7 -Creatinine 2.06 on admission and stable 1.73 today -Nephrology following NSVT - 5 beat run NSVT noted - Mg and K+ acceptable - continue coreg as above Elevated troponin -Troponin 0.05 and 0.03 -Not consistent with ACS -Likely elevated due to heart failure and SCHUYLER Poor appetite - per primary team - he states he has no appetite, but jyoti RN states he ate his entire dinner tray last evening Cardiology Discharge/Sign-off Recommendations Cardiology medications to continue: [x] All cardiac medications as ordered currently [] Admission cardiac medications [] Please start the following medications on discharge: [] Please stop the following medications on discharge: Followup testing recommended as an outpatient: [] To be arranged by Inpatient provider/PCP [] Will be arranged by Cardiology Cardiology followup: [] Not needed [] Recommend primary service arrange f/u with patient's outpatient radar engineer 1-2 wks. [x] Recommended; unable to arrange at this time, will arrange post-discharge The heart failure clinic will call him to arrange follow-up [] Arranged as follows: If there are any questions/concerns, please contact the covering provider. If no answer by Secure Chat, please call the cardiology office to obtain appropriate covering TYPEWRITER OPERATOR AUTOMATIC/physician. Medications: carvedilol, 25 mg, Oral, BID WC hydrALAZINE, 25 mg, Oral, TID influenza, 0.5 mL, IntraMUSCular, Prior to discharge isosorbide dinitrate, 20 mg, Oral, TID sodium bicarbonate, 650 mg, Oral, BID Infusion Medications: Physical Examination: Vitals: 05/29/24 1357 05/29/24 1611 05/29/24202305/30/24 0411 BP: 122/90 118/92 (!) 138/109 BP Location: Left arm Patient Position: Lying Pulse: 101 54 100 Resp: 18 18 18 Temp: 36.2 C (97.1 F) 36.9 C (98.5 F) TempSrc: Temporal Oral SpO2: 99% 100% 100% Weight: Height: 6' 1 (1.854 m) Intake/Output Summary (Last 24 hours) at 05/30/2024 0724 Last data filed at 05/30/2024 0136 Gross per 24 hour Intake 800 ml Output 1650 ml Net -850 ml Patient Vitals for the past 168 hrs: Weight 05/28/24 1441 180 lb (81.6 kg) Physical Exam Vitals reviewed. Constitutional: Appearance: Normal appearance. HENT: Head: Normocephalic and atraumatic. Neck: Vascular: No JVD. Cardiovascular: Rate and Rhythm: Normal rate and regular rhythm. No extrasystoles are present. Heart sounds: Murmur heard. Systolic murmur is present with a grade of 2/6. Pulmonary: Effort: Pulmonary effort is normal. Breath sounds: Normal breath sounds. Abdominal: General: Abdomen is flat and protuberant. Bowel sounds are normal. Palpations: Abdomen is soft. Tenderness: There is no abdominal tenderness. Musculoskeletal: Right lower leg: No edema. Left lower leg: Edema (trace) present. Skin: General: Skin is warm and dry. Neurological: Mental Status: He is alert and oriented to person, place, and time. Psychiatric: Attention and Perception: Attention normal. Speech: Speech normal. Laboratory Tests: Recent Labs 05/28/24 0811 05/28/24 1249 05/29/24 0550 NA 141 139 136 K 4.6 4.6 4.6 CL 114* 116* 114* CO2 19* 14* 18* BUN 38* 34* 41* CREATININE 2.06* 1.74* 1.73* Recent Labs 05/28/24 0811 05/29/24 0550 WBC 5.4 6.3 HGB 16.6 15.7 13.5 HCT 48.3 42.8 MCV 98.2 100.9* PLT 205 160 Recent Labs 05/28/24 0811 05/28/24 1249 TROPONINI 0.051* 0.037* Recent Labs 05/28/24 0811 BNP 19,900* No results for input(s): TRIG, HDL, LDLCALC, CHOL in the last 72 hours. No results found for: LDLCHOLESTER Lab Results Component Value Date TSH 0.820 05/28/2024 EF BP Date Value Ref Range Status 02/29/2024 30 (A) 55 - 100 % Final 02/28/24 TRANSTHORACIC ECHOCARDIOGRAM (TTE) COMPLETE (CONTRAST/BUBBLE/3D PRN) 02/29/2024 9:39 AM (Final) Interpretation Summary Left Ventricle: Left ventricle is mildly dilated. Mildly increased wall thickness. Mild septal thickening. Moderately reduced left ventricular systolic function. EF by 2D Simpsons Biplane is 30%. Global longitudinal strain is -7.1%. Severe global hypokinesis present. Grade II diastolic dysfunction with increased LAP. Right Ventricle: Right ventricle size is normal. Normal systolic function. TAPSE is 2.5 cm. Aortic Valve: No stenosis. AV mean gradient is 3 mmHg. AV peak velocity is 1.2 m/s. LVOT:AV VTI Index is 0.76. Mitral Valve: Moderate (2+) regurgitation. Tricuspid Valve: RVSP is 23 mmHg. Left Atrium: Left atrium is moderately dilated. LA Vol Index A/L is 42 mL/m2. Aorta: Normal sized sinuses of Valsalva and ascending aorta. Sinuses of Valsalva diameter is 3.2 cm. Ao ascending diameter is 3.3 cm. IVC/SVC: IVC diameter is normal and decreases greater than 50% during inspiration; therefore the estimated right atrial pressure is normal (~3 mmHg). Signed by: Radha Parikh on 02/29/2024 9:39 AM Other reports reviewed: Cardiac Tests: Telemetry findings reviewed: SR/ST EF BP Date Value Ref Range Status 02/29/2024 30 (A) 55 - 100 % Final THOMAS Argueta CNP Date Of Service 05/30/2024 * Dasha Lyn MD - 05/29/2024 11:03 AM EST Hospitalist Progress Note 05/29/2024 Subjective: Admit Date: 05/28/2024 PCP: No primary care provider on file. Room#: B2-557/B2-329 B BRIEF HOSPITAL COURSE: Carlo is a 44 y.o. male with history of HFrEF (echo in February of this year with left ventricular ejection fraction of 30% and 2+ mitral regurgitation), Hypertension and hyperlipidemia, who got admitted yesterday (05/28) for further eval and management of ADHF and SCHUYLER likely 2/2 CRS. Interval History: Pt was seen and examined at bedside No acute events overnight - sCr improved following IVF - Cards recommended one dose of IV Lasix and increasing Coreg to 25mg BID, and starting Hydra\Isordil TID - Pt initially refused taking Hydr\Isordil then I counseled him about the importance of these Meds to his heart and he agreed to take them - Nephrology recommended SCHUYLER workup Pt denies having any chest pain, changes in bowel habits, or fever. Case and plan discussed with patient and the assigned nurse. All questions answered. Adult diet Regular 24HR INTAKE/OUTPUT: Intake/Output Summary (Last 24 hours) at 05/29/2024 1322 Last data filed at 05/28/2024 1833 Gross per 24 hour Intake 450 ml Output 300 ml Net 150 ml Past Medical History: Past Medical History: Diagnosis Date CHF (congestive heart failure) (HCC) Hypercholesteremia Hypertension LABS: CBC: Recent Labs 05/28/24 0811 05/29/24 0550 WBC 5.4 6.3 RBC 4.92 4.24* HGB 16.6 15.7 13.5 HCT 48.3 42.8 MCV 98.2 100.9* RDW 13.9 14.0 PLT 205 160 BMP: Recent Labs 05/28/24 0811 05/28/24 1249 05/29/24 0550 NA 141 139 136 K 4.6 4.6 4.6 CL 114* 116* 114* CO2 19* 14* 18* BUN 38* 34* 41* CREATININE 2.06* 1.74* 1.73* GLUCOSE 120* 96 113* CALCIUM 9.1 8.3* 8.2* ANIONGAP 8 10 4 LIVER PROFILE: Recent Labs 05/28/24 0811 05/29/24 0550 AST 48* 49* ALT 129* 114* BILITOT 1.8* 1.3 ALKPHOS 104 105 PROT 6.8 5.5* PT/INR: No results for input(s): PROTIME, INR in the last 72 hours. CARDIAC ENZYMES: Recent Labs 05/28/24 0811 05/28/24 1249 TROPONINI 0.051* 0.037* Procalcitonin: No results found for: PROCAL COVID-19 PCR: No results for input(s): COVID19 in the last 72 hours. Objective: Vitals: BP 120/91 Pulse 101 Temp (!) 35.9 C (96.6 F) (Temporal) Resp 18 Wt 180 lb (81.6 kg) SpO2 100% BMI 23.75 kg/m Pulse Ox: SpO2 Av.4 % Min: 98 % Max: 100 % Supplemental O2: Physical Exam Constitutional: Appearance: Normal appearance. Eyes: Conjunctiva/sclera: Conjunctivae normal. Pupils: Pupils are equal, round, and reactive to light. Cardiovascular: Pulses: Normal pulses. Pulmonary: Effort: Pulmonary effort is normal. Abdominal: General: Abdomen is flat. Bowel sounds are normal. There is no distension. Tenderness: There is no abdominal tenderness. Musculoskeletal: Right lower leg: Edema present. Left lower leg: Edema present. Neurological: Mental Status: He is alert and oriented to person, place, and time. Mental status is at baseline. Psychiatric: Thought Content: Thought content normal. Medications: Scheduled PRN carvedilol, 25 mg, Oral, BID WC hydrALAZINE, 25 mg, Oral, TID influenza, 0.5 mL, IntraMUSCular, Prior to discharge isosorbide dinitrate, 20 mg, Oral, TID sodium bicarbonate, 650 mg, Oral, BID PRN medications: acetaminophen OR acetaminophen, ondansetron ODT OR ondansetron, polyethylene glycol (PEG) 3350 Continuous Assessment Data: (CAT1) Reviewed 3 or more notes from different specialty or health system (each=1). (LOW: 2x CAT1 or independent historian MOD: 3x CAT1 or 1x CAT3 EXTENSIVE: 3x CAT1 and 1x CAT3) Acute, acute on chronic, unstable/uncontrolled chronic problems/diagnoses: HFrEF Admit to tele Carvedilol 25 mg PO BID Lasix 40mg per Cards Afterload reduction with Hydralazine & Isordil TID Regular diet Daily in and out Standing weights Cardiology consult SCHUYLER and ATN on CKD 3b Obtain urine studies HOLD ARN Consider alternative HTN treatment in [facility]. Nephrology following Metabolic acidosis No insurance for follow up SW and CM Hypertension Nausea and emesis - improved on evaluations Volume depletion Stable chronic problems affecting care, new non-acute diagnoses: SEE HOSPITAL COURSE Plan As a result of the above findings & factors, the following mgmt was pursued: - Follow SCHUYLER workup ordered by Nephrology - Follow Nephro & Cards Recs - am labs, replace lytes prn - PT/OT/CM/SW - delirium precautions: increase activity and limit nighttime disturbances - DVT prophylaxis: enoxaparin and encourage ambulation Complexity: Chronic illness with mild to moderate exacerbation, progression, or side effect of tx (MOD). Risk: Admission to hospital-level care was considered or occurred (HIGH). Advance Directive: Full Code Anticipated Discharge - Date - TBD - Location - TBD - Pending the following - Hospital Course & PT\OT Eval Total time spent (which include face to face and non face to face encounters) : 45 minutes Toxic drug monitoring/narrow therapeutic index drug monitoring : # Drug name : NA # Route administered : NA # Method of monitoring : NA Extended Emergency Contact Information Primary Emergency Contact: Indira Medina Mobile Relation: Sister Secondary Emergency Contact: Kaitlin Hicks Mobile Relation: Significant Other Dasha Lyn MD Division of Hospitalist Medicine [facility] * Maritza Cj Linn, CURRICULUM DIRECTOR - WHITING MACHINE OPERATOR - 05/29/2024 9:40 AM EST [facility] Progress Note Subjective/ 44 y.o. year old male who we are seeing in consultation for SCHUYLER. NAEON Resting in bed BP is stable Edema 1+ BLE Denies SOB/CP Appetite fair No issues with UOP No other new issues at this time ROS done and negative unless mentioned as above No change in PFSH All data labs/interval notes and overnight issues are reviewed Objective/ Vitals: 05/28/24 2019 05/28/24 2344 05/29/24 0305 05/29/24 0829 BP: 112/83 106/82 122/90 120/91 BP Location: Right arm Left arm Right arm Patient Position: Lying Sitting Lying Pulse: 109 97 96 101 Resp: 18 18 18 18 Temp: (!) 35.7 C (96.2 F) (!) 35.7 C (96.2 F) (!) 35.9 C (96.7 F) (!) 35.9 C (96.6 F) TempSrc: Temporal Temporal Temporal Temporal SpO2: 100% 99% 100% 100% Weight: Intake/Output Summary (Last 24 hours) at 05/29/2024 0941 Last data filed at 05/28/2024 1833 Gross per 24 hour Intake 1450 ml Output 300 ml Net 1150 ml carvedilol, 25 mg, Oral, BID WC hydrALAZINE, 25 mg, Oral, TID influenza, 0.5 mL, IntraMUSCular, Prior to discharge isosorbide dinitrate, 20 mg, Oral, TID sodium bicarbonate, 650 mg, Oral, BID PRN medications: acetaminophen OR acetaminophen, ondansetron ODT OR ondansetron, polyethylene glycol (PEG) 3350 Constitutional: Alert, awake Eyes: No icterus, no pallor HEENT: no pallor/cyanosis or icterus, minimal JVD+ Cardiovascular: S1, S2 without m/r/g Respiratory: CTA B without w/r/r GI: +bs, soft, nt : agustin -ve Ext: 1+ BLE edema Neck: supple, no thyroid enlargement, no JVD elevation Skin: warm, moist, no rashes Data: Results from last 7 days Lab Units 05/29/24 0550 05/28/24 1249 05/28/24 0811 SODIUM mmol/L 136 139 141 POTASSIUM mmol/L 4.6 4.6 4.6 CHLORIDE mmol/L 114* 116* 114* CO2 mmol/L 18* 14* 19* BUN mg/dL 41* 34* 38* CREATININE mg/dL 1.73* 1.74* 2.06* GLUCOSE mg/dL 113* 96 120* CALCIUM mg/dL 8.2* 8.3* 9.1 Results from last 7 days Lab Units 05/29/24 0550 05/28/24 0811 WBC AUTO 10*3/uL 6.3 5.4 HEMOGLOBIN g/dL 13.5 15.7 HEMOGLOBIN BG g/dl -- 16.6 HEMATOCRIT % 42.8 48.3 PLATELETS 10*3/uL 160 205 Assessment/Plan SCHUYLER/ATN (N17.0) NAGMA (E87.21) CKD3b (N18.32) Chronic HFrEF (I50.23) Noncompliance with medications Volume depletion Nausea and vomiting Weight loss Plan: -Scr improved to baseline s/p 1 L IVF, bl~1.5-1.7, non-oliguric, BP stable -Ok for diuresis per cardiology at this time, mildly hypervolemic on exam -SCHUYLER workup ordered for thoroughness, noted urine lytes likely to be skewed 2/2 CHF and/or diuresis -Check LIZET -Low Na diet -Start po HCO3 tabs, monitor for volume retention -Avoid nephrotoxins and contrast dye -Dose all meds per current eGFR -All other care per primary team -Noted large noncompliance with medications and puts him at high risk for decompensation -We will follow closely with you Thank you for the consult and the opportunity to participate in the care of this patient. Please donot hesitate to contact us with any questions or concerns. Maritza Linn APRN, VIKKI [facility], [facility] [phone] Cosigned by Saul Briones MD at 05/29/2024 12:46 PM EST Associated attestation - Saul Briones MD - 05/29/2024 12:46 PM EST Notes reviewed and plan discussed with the PA. Agree with above note except Any variance is noted below. Renal function improving and near baseline. Continue to trend as the patient is diuresed. Saul Briones MD [facility] [phone] * THOMAS An CNP - 05/29/2024 7:40 AM EST [facility] Cardiology /Electrophysiology Progress Note HPI / Interval History: Carlo Medina has a history of recently diagnosed HFrEF likely due to NICM and probable CKD who presented to [facility] with shortness of breath, nausea, vomiting and acute decompensated heart failure. He was hospitalized at [facility] where he had an echocardiogram showing EF of 30% with moderate mitral regurgitation. CTA chest did not show coronary artery calcification. He was diuresed and placed on GDMT but stopped taking torsemide as an outpatient as he felt it caused nausea and vomiting. Unfortunately,his nausea and vomiting did not resolve with stopping the medication. He has a family history of heart failure and his father who of heart failure at an unknown age. His older brother was diagnosed with dilated cardiomyopathy around age 55. Lab work on admission showed SCHUYLER on probable CKD. He was felt to be dry by nephrology and given IV fluids and then when seen by Dr. Bearden he was felt to be volume overloaded. Upon reviewing hischart, he declined IV Lasix, hydralazine and isosorbide last evening. This morning, he states he will not take torsemide as OP. He only took IV lasix and coreg and declines starting other new medicines. He feels the medicines are making him ill. He is complaining of lower abdominal pain and nausea. He states for the last month he has had dry mouth, lightheadedness and weight loss. He denies CP, PND, orthopnea, palpitations, syncope. Assessment/Plan HF NYHA Class [] I [x] II [] III [] IV []Unable to assess [] N/A HFrEF 2/2 probably NICM, Stage C, Class II, EF 30% per TTE 02/2024 -Daily weight not recorded -? Accuracy of I&O - denies HF symptoms, but appears mildly volume overloaded on exam -increase carvedilol 25 mg p.o. twice daily -will give lasix 40 mg IV x 1 today and re-evaluate in AM -Continue hydralazine 25 mg p.o. 3 times daily (patient will likely decline) -Continue isosorbide 20 mg p.o. 3 times daily (will likely decline) -Not currently a candidate for ACEi, ARB, ARNI, AA due to SCHUYLER on CKD -HF self care reviewed -he states he does not want to take all these medications as he feels they are making him sick, we discussed his low EF and the importance of medical therapy and risks of stopping medications including worsening EF, recurrent HF and , he verbalizes understanding Elevated LFTs -Possibly due to hepatic congestion -Would continue to trend SCHUYLER on CKD -Per nephrology baseline creatinine 1.5-1.7 -Creatinine 2.06 on admission and 1.73 today -Nephrology following NSVT - 7 beat run NSVT noted - Mg and K+ acceptable - increase coreg as above Elevated troponin -Troponin 0.05 and 0.03 -Not consistent with ACS -Likely elevated due to heart failure and SCHUYLER Dispo: will continue to monitor Medications: carvedilol, 12.5 mg, Oral, BID WC furosemide, 40 mg, IntraVENous, BID hydrALAZINE, 25 mg, Oral, TID influenza, 0.5 mL, IntraMUSCular, Prior to discharge isosorbide dinitrate, 20 mg, Oral, TID Infusion Medications: Physical Examination: Vitals: 05/28/24 1441 05/28/24201805/28/24 2344 05/29/24 0305 BP: 132/99 112/83 106/82 122/90 BP Location: Left arm Right arm Left arm Right arm Patient Position: Lying Lying Sitting Lying Pulse: 108 109 97 96 Resp: 16 18 18 18 Temp: (!) 35.7 C (96.3 F) (!) 35.7 C (96.2 F) (!) 35.7 C (96.2 F) (!) 35.9 C (96.7 F) TempSrc: Temporal Temporal Temporal Temporal SpO2: 98% 100% 99% 100% Weight: 180 lb (81.6 kg) Intake/Output Summary (Last 24 hours) at 05/29/2024 0740 Last data filed at 05/28/2024 1833 Gross per 24 hour Intake 1450 ml Output 300 ml Net 1150 ml Patient Vitals for the past 168 hrs: Weight 05/28/24 1441 180 lb (81.6 kg) Physical Exam Vitals reviewed. Constitutional: Appearance: Normal appearance. HENT: Head: Normocephalic and atraumatic. Neck: Vascular: JVD present. Cardiovascular: Rate and Rhythm: Normal rate and regular rhythm. Occasional Extrasystoles are present. Heart sounds: Murmur heard. Systolic murmur is present with a grade of 2/6. Pulmonary: Effort: Pulmonary effort is normal. Breath sounds: Normal breath sounds. Abdominal: General: Abdomen is protuberant. Bowel sounds are normal. Palpations: Abdomen is soft. Musculoskeletal: Right lower leg: No edema (trace). Left lower le+ Pitting Edema present. Skin: General: Skin is warm and dry. Neurological: Mental Status: He is alert and oriented to person, place, and time. Psychiatric: Attention and Perception: Attention normal. Speech: Speech normal. Laboratory Tests: Recent Labs 05/28/24 0811 05/28/24 1249 05/29/24 0550 NA 141 139 136 K 4.6 4.6 4.6 CL 114* 116* 114* CO2 19* 14* 18* BUN 38* 34* 41* CREATININE 2.06* 1.74* 1.73* Recent Labs 05/28/24 0811 05/29/24 0550 WBC 5.4 6.3 HGB 16.6 15.7 13.5 HCT 48.3 42.8 MCV 98.2 100.9* PLT 205 160 Recent Labs 05/28/24 0811 05/28/24 1249 TROPONINI 0.051* 0.037* Recent Labs 05/28/24 0811 BNP 19,900* No results for input(s): TRIG, HDL, LDLCALC, CHOL in the last 72 hours. No results found for: LDLCHOLESTER Lab Results Component Value Date TSH 0.820 05/28/2024 EF BP Date Value Ref Range Status 02/29/2024 30 (A) 55 - 100 % Final 02/28/24 TRANSTHORACIC ECHOCARDIOGRAM (TTE) COMPLETE (CONTRAST/BUBBLE/3D PRN) 02/29/2024 9:39 AM (Final) Interpretation Summary Left Ventricle: Left ventricle is mildly dilated. Mildly increased wall thickness. Mild septal thickening. Moderately reduced left ventricular systolic function. EF by 2D Simpsons Biplane is 30%. Global longitudinal strain is -7.1%. Severe global hypokinesis present. Grade II diastolic dysfunction with increased LAP. Right Ventricle: Right ventricle size is normal. Normal systolic function. TAPSE is 2.5 cm. Aortic Valve: No stenosis. AV mean gradient is 3 mmHg. AV peak velocity is 1.2 m/s. LVOT:AV VTI Index is 0.76. Mitral Valve: Moderate (2+) regurgitation. Tricuspid Valve: RVSP is 23 mmHg. Left Atrium: Left atrium is moderately dilated. LA Vol Index A/L is 42 mL/m2. Aorta: Normal sized sinuses of Valsalva and ascending aorta. Sinuses of Valsalva diameter is 3.2 cm. Ao ascending diameter is 3.3 cm. IVC/SVC: IVC diameter is normal and decreases greater than 50% during inspiration; therefore the estimated right atrial pressure is normal (~3 mmHg). 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 Pt has been unable to follow up with Cardiology as pt is uninsured. - Per note on 04/28, pt has been denied Medicaid as he is over income. - Pt completed an HCAP application on 04/28/24 during a previous hospitalization at [facility]. This RN has made multiple attempts to check status of HCAP application in hopes of being able to schedule a follow up appt, but has not yet been informed of approval. - Message sent again today to Rayna Carroll check status who reports HCAP (denied 05/19/24) cannot be approved until a formal MD denial is received --> dept now looking to track down pt's Medicaid Notice of Action. - Updated Marcel Burger NP that pt is not able to be scheduled in the HF clinic until HCAP application is approved, as pt is unable to pay for appt out of pocket. Will continue to follow. Addendum: Notified by [employer] that [employer] screened the patient over income for Medicaid, but did not assist with a Medicaid application for denial. [employer] to go see patient and have him sign forms to apply for Medicaid for denial so HCAP application can be processed. 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 Pt has been unable to follow up with Cardiology as pt is uninsured. - Per note on 04/28, pt has been denied Medicaid as he is over income. - Pt completed an HCAP application on 04/28/24 during a previous hospitalization at [facility]. This RN has made multiple attempts to check status of HCAP application in hopes of being able to schedule a follow up appt, but has not yet been informed of approval. - Message sent again today to Rayna Carroll check status who reports HCAP (denied 05/19/24) cannot be approved until a formal MD denial is received --> dept now looking to track down pt's Medicaid Notice of Action. - Updated Marcel Burger NP that pt is not able to be scheduled in the HF clinic until HCAP application is approved, as pt is unable to pay for appt out of pocket. Will continue to follow. Addendum: Notified by [employer] that [employer] screened the patient over income for Medicaid, but did not assist with a Medicaid application for denial. [employer] to go see patient and have him sign forms to apply for Medicaid for denial so HCAP application can be processed. [id number] Nurse Note* Kira Santos RN - 05/31/2024 9:40 AM EST Patient refused morning labs, RN explained reasoning behind wanting daily labs. Patient refused VitD as it was a gel cap and unable to be crushed. Patient states he cannot swallow pills and all mustbe crushed. RN attempted to educate patient on his labs and how important it is to take medication and how it pertains to his current state of health. Patient does not engage or state any understanding. He is concerned about cost of medications and how many he is on. [id number] Plan of care note* Care Plan - King Jackson RN - 05/30/2024 5:48 PM EST Problem: Knowledge Deficit Goal: Patient/family/caregiver demonstrates understanding of disease process, treatment plan, medications, and discharge instructions Outcome: Progressing Problem: Potential for Compromised Skin Integrity Goal: Skin Integrity is Maintained or Improved Outcome: Progressing Problem: Potential for Compromised Skin Integrity Goal: Nutritional status is improving Outcome: Progressing [id number] Nurse Note* King Jackson RN - 05/30/2024 9:50 AM EST Pt expressing reluctance to take meds. This nurse did address pt concerns re: importance of adhering to med schedule, the purpose of each med, and how it affects condition. Pt states, I didn't come here for heart med lecture, nobody is addressing the lack of appetite. Pt did eat breakfast, deniesdysphagia, nausea, state, just don't taste good.Pt reassured concerns would be addressed to physicians. [id number] Telephone encounter Note* Telephone Encounter - THOMAS An CNP - 05/30/2024 9:18 AM EST Patient admitted to [facility] with recurrent HF, SCHUYLER and lack of appetite. Mildly volume overloaded. Titration of HF meds difficult to patient resistance. He will need 1-2 week follow-up in HF clinic (he was initially seen by Dr. Astudillo). Please call to schedule. Thanks. [facility] Work Phone: [phone] 738-764912-01-2024 Miscellaneous Notes* Telephone Encounter - THOMAS An CNP - 05/30/2024 9:18 AM EST Patient admitted to [facility] with recurrent HF, SCHUYLER and lack of appetite. Mildly volume overloaded. Titration of HF meds difficult to patient resistance. He will need 1-2 week follow-up in HF clinic (he was initially seen by Dr. Astudillo). Please call to schedule. Thanks. documented in this encounterSDetwiler [facility] [id number] Nurse Note* Tita Hernandez RN - 05/30/2024 5:14 AM EST Pt did not want to get stuck for labs and wanted to talk with daytime Dr about need for daily labs. [id number] Consult note* Tahmina Berg, RD - 05/29/2024 2:14 PM EST Associated Order(s): IP CONSULT TO DIETITIAN Nutrition Assessment Type and Reason for Visit: Initial, Consult Nutrition Recommendations/Plan: Recommend 2 gm sodium diet (pt reports low appetite +nausea at this time) Per mnt protocol will add Ensure High Prot once daily (160 kcal, 16 gm prot) - modify as needed per po intakes Please record meal and supplement intakes in RN Flowsheets RD to monitor clinical course, labs, weight, PO intake -follow up weekly Malnutrition Assessment: Malnutrition Status: Moderate malnutrition Context: Chronic Illness Findings of the 6 clinical characteristics of malnutrition: Energy Intake: 75% or less estimated energy requirements for 1 month or longer Weight Loss: Greater than 5% over 1 month Body Fat Loss: No significant body fat loss Muscle Mass Loss: No significant muscle mass loss Fluid Accumulation: Mild Extremities Pharmacy Delivery Driver Strength: Not Performed Nutrition Assessment: 44 y.o. male admits for further eval and management of ADHF and SCHUYLER likely due to CRS. Nephrology and Cardiology consulted. Pt reports having low appetite over the last 1-2 mo with 20 lb wt loss since 01/2024 -state some may have been fluid but ?sister noticing significant wt loss over past month. ubw 205 lb 01/2024. Pt reports nausea comes and goes and recently had diarrhea. states he tolerated 2 meals yesterday but not eating much today -discussed use of Ensure ->to supplement low po intake of meals/encourage adequate nutrition -hesitate use otherwise (at this time) due to worsening renal function -pt /sister verbalized understanding Estimated Daily Nutrient Needs: Energy Requirements Based On: Kcal/kg Weight Used for Energy Requirements: [place] Weight for Energy Calculation (kg): 84 kg Total Energy Requirements (kcals/day): 6869-1849 (25-30) Weight Used for Protein Requirements: [place] Weight in Kg Used for Protein Requirements: 84 kg Estimated Total Protein (g/day): 67-84 (.8-1.0) monitor renal function Estimated Daily Total Fluid (ml/day): per MD Nutrition Related Findings: +1 evans LE edema. abdomen soft, bm 05/27. bun 41, cr 1.72, gfr 48.7, calcium 8.2, mg 2.4, alb 3.0, ast 49/alt 114, bnp 19,900. meds reviewed. 6% wt loss in 1 mo, 12% wt loss < 3 mo considered clinically significant Wound Type: None Wt Readings from Last 50 Encounters: 05/28/24 81.6 kg (180 lb) 04/28/24 87 kg (191 lb 12.8 oz) 03/07/24 84.6 kg (186 lb 6.4 oz) 02/29/24 93 kg (205 lb) Current Nutrition Therapies: Adult diet Regular Current Oral Intake Average Meal Intake: 26-50% Average Supplements Intake: None Ordered Anthropometric Measures: Height: 185.4 cm (6' 1) Current Body Weight: 81.6 kg (180 lb) Weight Source: Not Specified Admission Body Weight: 81.6 kg (180 lb) (pt states bed scale) Usual Body Weight: 93 kg (205 lb) (01/2024 per pt) % Weight Change (Calculated): -12.2 [place] Body Weight (lbs) (Calculated): 184 lbs [place] Body Weight (Kg) (Calculated): 84 kg % [place] Body Weight (Calculated): 97.8 % BMI (kg/m2) (Calculated): 23.8 Weight Adjustment For: No Adjustment BMI Categories: Normal Weight (BMI 18.5-24.9) Nutrition Diagnosis: Moderate malnutrition, In context of chronic illness related to inadequate protein-energy intake asevidenced by weight loss greater than or equal to 5% in 1 month, poor intake prior to admission (12% wt loss < 3 mo) Altered nutrition-related lab values related to cardiac dysfunction, renal dysfunction as evidencedby lab values Nutrition Interventions: Nutrition Education/Counseling: No recommendation at this time (pt previously educated on low sodium diet -declines further review or info at this time) Coordination of Nutrition Care: Continue to monitor while inpatient Plan of Care discussed with: Pt/ sister Goals: Goals: PO intake 75% or greater, by next RD assessment Nutrition Monitoring and Evaluation: Behavioral-Environmental Outcomes: None Identified Food/Nutrient Intake Outcomes: Food and Nutrient Intake, Supplement Intake Physical Signs/Symptoms Outcomes: Biochemical Data, GI Status, Nausea or Vomiting, Fluid Status or Edema, Hemodynamic Status, Nutrition Focused Physical Findings, Skin, Weight Discharge Planning: Continue current diet, Recommend pursue outpatient nutrition counseling Tahmina Berg RD Contact: *[phone] or via Secure Chat [id number] Plan of care note* Care Plan - King Jackson RN - 05/28/2024 4:04 PM EST Problem: Knowledge Deficit Goal: Patient/family/caregiver demonstrates understanding of disease process, treatment plan, medications, and discharge instructions Outcome: Progressing Problem: Potential for Compromised Skin Integrity Goal: Skin Integrity is Maintained or Improved Outcome: Progressing Problem: Potential for Compromised Skin Integrity Goal: Nutritional status is improving Outcome: Progressing [id number] Consult note* Garrick Bearden MD - 05/28/2024 3:25 PM ESTAssociated Order(s): IP CONSULT TO CARDIOLOGY [facility] [place] [facility] [place] [facility] Cardiology /Electrophysiology Consult Note Reason for Consult/Chief Complaint: Nausea, vomiting, feeling dehydrated Referring provider: [facility] radar engineer: Katerin History of Present Illness: Carlo Medina is a 44 y.o. male with a recent diagnosis of dilated cardiomyopathy. He was admittedin February with shortness of breath. An echocardiogram showed severe LV dysfunction with an estimated ejection fraction of 30%, moderate mitral regurgitation. A coronary CTA did not show coronary ar perlita calcifications. Patient has no significant past medical history, however there is concerned that he has chronic kidney disease with decreased glomerular filtration rate. He denies previous history of hypertension or diabetes. He has a family history of heart failure in his father who of heart failure at an unknown age, his older brother was diagnosed with dilated cardiomyopathy at around age 55. Patient was started on guideline directed medical therapy, including carvedilol torsemide rosuvastatin spironolactone and losartan. However he felt that torsemide caused him to have nausea and vomiting and he stopped taking the diuretic. He states his shortness of breath did not improve. His nausea and vomiting improved mildly but did not resolve. He denies chest pain, palpitations or syncope. 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 Assessment/Plan HF NYHA Class [] I [] II [] III [] IV []Unable to assess Chronic systolic heart failure: The patient has rising BNP, which may be due to his acute on chronic renal failure. However he also has significant JVD. Therefore I suspect that his renal insufficiency is cardiorenal syndrome due to low cardiac output. This is confounded by the fact that his lower extremity is somewhat cold. Although the patient does not appear to be in clinical distress or near cardiogenic shock, I am concerned that he is at increased for acute decompensation. I took the liberty to restart carvedilol. I recommend to withhold further intravenous fluid boluses. Due to the patient's young age and advanced heart failure and severe LV dysfunction I recommended that he be transferred to [facility] cardiology service possibly even the heart failure unit for aggressive invasive evaluation and management. At this point the patient is reluctant, wants to discuss it withhis girlfriend. Acute on chronic renal insufficiency: Clinically this is likely cardiorenal syndrome and will only improve with improvement of his cardiac function. I tried to explain to the patient that his symptoms of nausea vomiting and feeling dehydrated may or may not be due to torsemide. Cardiology will follow along. Medications: carvedilol, 12.5 mg, Oral, BID WC [START ON 05/29/2024] influenza, 0.5 mL, IntraMUSCular, Prior to discharge Infusion Medications: Physical Examination: Vitals: 05/28/24 1030 05/28/24 1100 05/28/24 1200 05/28/24 1441 BP: (!) 132/101 (!) 130/107 (!) 137/106 132/99 BP Location: Left arm Patient Position: Lying Pulse: 106 108 107 108 Resp: 18 19 16 Temp: (!) 35.7 C (96.3 F) TempSrc: Temporal SpO2: 98% 100% 99% 98% Weight: 180 lb (81.6 kg) Intake/Output Summary (Last 24 hours) at 05/28/2024 1525 Last data filed at 05/28/2024 1015 Gross per 24 hour Intake 1000 ml Output -- Net 1000 ml Wt Readings from Last 3 Encounters: 05/28/24 180 lb (81.6 kg) 04/28/24 191 lb 12.8 oz (87 kg) 03/07/24 186 lb 6.4 oz (84.6 kg) Physical Exam Vitals reviewed. Constitutional: Appearance: Normal appearance. He is normal weight. HENT: Head: Normocephalic and atraumatic. Right Ear: External ear normal. Left Ear: External ear normal. Nose: Nose normal. Eyes: Extraocular Movements: Extraocular movements intact. Conjunctiva/sclera: Conjunctivae normal. Neck: Vascular: JVD (8 to 10 cm) present. No carotid bruit. Cardiovascular: Rate and Rhythm: Normal rate and regular rhythm. Heart sounds: No murmur heard. No gallop. Pulmonary: Effort: Pulmonary effort is normal. Breath sounds: Normal breath sounds. No wheezing. Abdominal: General: Bowel sounds are normal. Palpations: Abdomen is soft. Musculoskeletal: General: No swelling. Normal range of motion. Cervical back: Neck supple. Right lower leg: No edema. Left lower leg: No edema. Skin: General: Skin is dry. Comments: Both feet are cold Neurological: General: No focal deficit present. Mental Status: He is alert and oriented to person, place, and time. Psychiatric: Mood and Affect: Mood normal. Behavior: Behavior normal. Laboratory Tests: Recent Labs 05/28/24 0811 05/28/24 1249 NA 141 139 K 4.6 4.6 CL 114* 116* CO2 19* 14* BUN 38* 34* CREATININE 2.06* 1.74* EGFR 39.5* 48.4* Recent Labs 05/28/24 0811 05/28/24 1249 TROPONINI 0.051* 0.037* Recent Labs 05/28/24 0811 WBC 5.4 HGB 16.6 15.7 HCT 48.3 MCV 98.2 PLT 205 Lab Results Component Value Date HGBA1C 5.0 03/01/2024 Lab Results Component Value Date TSH 0.820 05/28/2024 Lab Results Component Value Date CHOL 172 02/29/2024 Lab Results Component Value Date HDL 28 (L) 02/29/2024 Lab Results Component Value Date LDLCALC 126 (H) 02/29/2024 Lab Results Component Value Date TRIG 88 02/29/2024 No results found for: CHOLHDL No results found for: LDLCHOLESTER Recent Labs 05/28/24 0811 BNP 19,900* No results for input(s): INR in the last 72 hours. Results from last 7 days Lab Units 05/28/24 0811 AST U/L 48* ALT U/L 129* No results found for: IRON, TIBC, FERRITIN Radiology: CXR: personally reviewed: Cardiac Tests Personally Reviewed: Last EKG 05/28/24 ECG 12-LEAD 05/28/2024 9:01 AM (Final) Impression Sinus tachycardia Probable left atrial enlargement Abnormal R-wave progression, late transition Left ventricular hypertrophy Nonspecific T abnormalities, lateral leads Anterior ST elevation, probably due to LVH Electronically Signed On 05-28-2024 09:01:45 EST by Izaiah Martins Signed by: Izaiah Martins on 05/28/2024 9:01 AM Telemetry findings: Sinus rhythm Reports reviewed: Last Echo 02/28/24 TRANSTHORACIC ECHOCARDIOGRAM (TTE) COMPLETE (CONTRAST/BUBBLE/3D PRN) 02/29/2024 9:39 AM (Final) Interpretation Summary Left Ventricle: Left ventricle is mildly dilated. Mildly increased wall thickness. Mild septal thickening. Moderately reduced left ventricular systolic function. EF by 2D Simpsons Biplane is 30%. Global longitudinal strain is -7.1%. Severe global hypokinesis present. Grade II diastolic dysfunction with increased LAP. Right Ventricle: Right ventricle size is normal. Normal systolic function. TAPSE is 2.5 cm. Aortic Valve: No stenosis. AV mean gradient is 3 mmHg. AV peak velocity is 1.2 m/s. LVOT:AV VTI Index is 0.76. Mitral Valve: Moderate (2+) regurgitation. Tricuspid Valve: RVSP is 23 mmHg. Left Atrium: Left atrium is moderately dilated. LA Vol Index A/L is 42 mL/m2. Aorta: Normal sized sinuses of Valsalva and ascending aorta. Sinuses of Valsalva diameter is 3.2 cm. Ao ascending diameter is 3.3 cm. IVC/SVC: IVC diameter is normal and decreases greater than 50% during inspiration; therefore the estimated right atrial pressure is normal (~3 mmHg). Signed by: Radha Parikh on 02/29/2024 9:39 AM Last Cath No results found for this or any previous visit. Last Stress Test No results found for this or any previous visit. Last EP study No results found for this or any previous visit. EF BP Date Value Ref Range Status 02/29/2024 30 (A) 55 - 100 % Final AKILAH SCORE: AKILAH Score Link Garrick Bearden MD DATE of SERVICE: 05/28/2024 [place] Phone: 1(151) 693-904711-29-2024 History and physical note* Mary Ellen Brito MD - 05/28/2024 3:22 PM EST Attending History and Physical Admit Date: 05/28/2024 PCP: No primary care provider on file. CHIEF COMPLAINT: Nausea, lack of appetite, 10 lb weight loss, and epigastric discomfort Reason for Admission: SCHUYLER in setting of HFrEF History Obtained From: patient HISTORY OF PRESENT ILLNESS: Carlo is a 44 y.o. male with history of HFrEF (echo in February of this year with left ventricular ejection fraction of 30% and 2+ mitral regurgitation), Hypertension and hyperlipidemia, who was discharge in February. States that since he got discharged he has been taking his heart failure medications regularly but has not been able to follow up with provider due to not having insurance > and his appointments getting cancelled before he could go. Overall feels tired, fatigued, no appetite. After he had a 1L bolus in the ED - he got his appetite back for the first time in a while. In the ED, HR 120, R 18, SBP 179/121, 100%, T 36.9 Labs show VBG7.35/35/37/19, Na 141, Cl 114, Creatinine 2.06, GFR 39.5, MG 2.4, AST 48, ALT 129, TB 1.8, Trop 0.051, BNP 19,900, CBC unremarkable. Concentrated urine, with increase proteinuria CXR showed no acute process. ' Will admit for likely over diuresis resulting in SCHUYLER. Past Medical History: Past Medical History: Diagnosis Date Hypercholesteremia Hypertension Past Surgical History: No past surgical history on file. Social History: Social History Socioeconomic History Marital status: Single Spouse name: Not on file Number of children: Not on file Years of education: Not on file Highest education level: Not on file Occupational History Not on file Tobacco Use Smoking status: Never Smokeless tobacco: Never Vaping Use Vaping status: Never Used Substance and Sexual Activity Alcohol use: Not on file Drug use: Never Sexual activity: Not on file Other Topics Concern Not on file Social History Narrative Not on file Social Drivers of Health Financial Resource Strain: Low Risk (04/28/2024) Overall Financial Resource Strain (CARDIA) Difficulty of Paying Living Expenses: Not very hard Food Insecurity: No Food Insecurity (04/28/2024) Hunger Vital Sign Worried About Running Out of Food in the Last Year: Never true Ran Out of Food in the Last Year: Never true Transportation Needs: No Transportation Needs (04/28/2024) PRAPARE - Transportation Lack of Transportation (Medical): No Lack of Transportation (Non-Medical): No Physical Activity: Insufficiently Active (04/28/2024) Exercise Vital Sign Days of Exercise per Week: 7 days Minutes of Exercise per Session: 10 min Stress: No Stress Concern Present (04/28/2024) [place] [employer] - Occupational Stress Questionnaire Feeling of Stress : Not at all Recent Concern: Stress - Stress Concern Present (02/28/2024) [place] [employer] Occup[employer] - Occupational Stress Questionnaire Feeling of Stress : To some extent Social Connections: Unknown (04/28/2024) Social Connection and Isolation Panel [NHANES] Frequency of Communication with Friends and Family: Once a week Frequency of Social Gatherings with Friends and Family: Once a week Attends Holiness Services: Patient unable to answer Active Member of Clubs or Organizations: No Attends Club or Organization Meetings: Never Marital Status: Living with partner Intimate Partner Violence: Not At Risk (04/28/2024) Humiliation, Afraid, Rape, and Kick questionnaire Fear of Current or Ex-Partner: No Emotionally Abused: No Physically Abused: No Sexually Abused: No Housing Stability: Low Risk (04/28/2024) Housing Stability Vital Sign Unable to Pay for Housing in the Last Year: No Number of Times Moved in the Last Year: 0 Homeless in the Last Year: No Family History: No family history on file. Medications Prior to Admission: No current facility-administered medications on file prior to encounter. Current Outpatient Medications on File Prior to Encounter Medication Sig Dispense Refill carvedilol (Coreg) 12.5 MG tablet Take 1 tablet (12.5 mg) by mouth in the morning and 1 tablet (12.5 mg) in the evening. Take with meals. 180 tablet 3 clopidogrel (Plavix) 75 MG tablet Take 1 tablet (75 mg) by mouth daily. 90 tablet 0 furosemide (Lasix) 80 MG tablet Take 1 tablet (80 mg) by mouth daily. 30 tablet 11 losartan (Cozaar) 100 MG tablet Take 1 tablet (100 mg) by mouth daily. 30 tablet 11 rosuvastatin (Crestor) 10 MG tablet Take 1 tablet (10 mg) by mouth Nightly. 30 tablet 11 spironolactone (Aldactone) 25 MG tablet Take 1 tablet (25 mg) by mouth daily. 30 tablet 11 torsemide (Demadex) 20 MG tablet Take 2 tablets (40 mg) by mouth daily. 180 tablet 3 Allergies: No Known Allergies REVIEW OF SYSTEMS: \ above Vitals: BP 132/99 (BP Location: Left arm, Patient Position: Lying) Pulse 108 Temp (!) 35.7 C (96.3 F) (Temporal) Resp 16 Wt 180 lb (81.6 kg) SpO2 98% BMI 23.75 kg/m BMI Classification: Normal Weight (BMI 18.5-24.9) Pulse Ox: SpO2 Av.1 % Min: 98 % Max: 100 % Supplemental O2: PHYSICAL EXAM: Physical Exam Vitals and nursing note reviewed. Constitutional: Appearance: Normal appearance. He is not ill-appearing. HENT: Head: Normocephalic. Mouth/Throat: Mouth: Mucous membranes are dry. Pharynx: Oropharyngeal exudate present. Eyes: General: Right eye: No discharge. Left eye: No discharge. Conjunctiva/sclera: Conjunctivae normal. Pupils: Pupils are equal, round, and reactive to light. Cardiovascular: Rate and Rhythm: Normal rate and regular rhythm. Heart sounds: No murmur heard. Pulmonary: Effort: No respiratory distress. Breath sounds: No wheezing or rales. Musculoskeletal: Right lower leg: No edema. Left lower leg: No edema. Skin: General: Skin is warm and dry. Capillary Refill: Capillary refill takes less than 2 seconds. Coloration: Skin is not jaundiced. Findings: No bruising or lesion. Neurological: General: No focal deficit present. Mental Status: He is alert and oriented to person, place, and time. DATA: CBC: Recent Labs 05/28/24 0811 WBC 5.4 RBC 4.92 HGB 16.6 15.7 HCT 48.3 MCV 98.2 RDW 13.9 PLT 205 BMP: Recent Labs 05/28/24 0811 05/28/24 1249 NA 141 139 K 4.6 4.6 CL 114* 116* CO2 19* 14* BUN 38* 34* CREATININE 2.06* 1.74* GLUCOSE 120* 96 CALCIUM 9.1 8.3* ANIONGAP 8 10 LIVER PROFILE: Recent Labs 05/28/24 0811 AST 48* ALT 129* BILITOT 1.8* ALKPHOS 104 PROT 6.8 PT/INR: No results for input(s): PROTIME, INR in the last 72 hours. CARDIAC ENZYMES: Recent Labs 05/28/24 0811 05/28/24 1249 TROPONINI 0.051* 0.037* Procalcitonin: No results found for: PROCAL Urine Culture: No results found for this or any previous visit. COVID-19 PCR: No results for input(s): COVID19 in the last 72 hours. I reviewed: [x] laboratory results [x] radiographic results At the time of today's encounter. Pt was advised of the results. Data: (CAT1) Reviewed 3 or more notes from different specialty or health system (each=1). (CAT1) Reviewed 3 or more labs/studies ordered by another provider not previously counted (each=1, panels count as 1). (CAT1) Ordered 3 or more new labs and/or studies (each=1, panels count as 1). (LOW: 2x CAT1 or independent historian MOD: 3x CAT1 or 1x CAT3 EXTENSIVE: 3x CAT1 and 1x CAT3) Assessment Discussed management with the ED provider and agree with hospitalization. Acute, acute on chronic, unstable/uncontrolled chronic problems/diagnoses: HFrEF Admit to tele 1L NS in Ed, 100 cc/hr for 10 hours Carvedilol 12.5 mg PO BID HOLD torsemide, lasix and losartan Hydralazine prn for sBP>160, of DBP >100 Regular diet - will adjust to low salt diet once tolerating diet Daily in and out Standing weights Cardiology consult SCHUYLER and ATN on CKD 3b Obtain urine studies HOLD diuretics and ARN Consider alternative HTN treatment in furture. Nephrology consulted Metabolic acidosis No insurance for follow up SW and CM Hypertension Nausea and emesis - improved on evaluations Volume depletion Plan As a result of the above findings & factors, the following mgmt was pursued: - Admit to tele, hold diuretics and arbs, in and outs, daily weights, mIVF x 10 hours, cardiology and nephrology consultations, SHARRI, daily labs, - am labs, replace lytes prn - PT/OT/CM/SW - delirium precautions: increase activity and limit nighttime disturbances - DVT prophylaxis: enoxaparin and encourage ambulation Complexity: Chronic illness with mild to moderate exacerbation, progression, or side effect of tx (MOD). Risk: Admission to hospital-level care was considered or occurred (HIGH). Advance Directive: Full Code Anticipated Discharge - Date - - Location - Home - Pending the following - clinical improvement and set up for follow up Total time spent (which include face to face and non face to face encounters) : 78 minutes. Toxic drug monitoring/narrow therapeutic index drug monitoring : # Drug name : NA # Route administered : NA # Method of monitoring : NA Extended Emergency Contact Information Primary Emergency Contact: Indira Medina Mobile Relation: Sister Secondary Emergency Contact: KurtLilianaKaitlin Mobile Relation: Significant Other [employer] Carlo Medina : 1980 Primary Care Physician: No primary care provider on file. The patient and/or family/surrogate voluntarily agreed to participate in ACP services. Patient s cognitive capacity: intact Code Status: [X] [FULL CODE - Continue all advanced life support: CPR,intubation,invasive procedures] [_] [DNR-CCA - DO NOT do CPR, intubation] [_] [DNR-STONE DRESSER - Comfort care only] [_] DNR form [was/was not] signed Summary of discussion: The patient health care POA/ surrogate is the following: Aurelia Decker. [Condition that instigated the ACP on this DOS, relevant PMH, functional status, goals of care, andwhom this was discussed with including names and relationship to the patient, and any relevant advance care documentation discussion] I answered all the patient/family questions that I could within the range and scope of the current medical situation. We discussed the medical conditions, risks, benefits, outcomes, and goals of careat this time for the patient's medical issues at hand in the face of the patient's chronic issues and current presentation. Total time spent: 3 minutes were spent discussing the patient's resuscitation status, advance care planning, and end of life care, with patient and/or family/surrogate. Mary Ellen Brito MD Division of Hospitalist Medicine [id number] History and physical note* Mary Ellen Brito MD - 05/28/2024 3:22 PM EST Attending History and Physical Admit Date: 05/28/2024 PCP: No primary care provider on file. CHIEF COMPLAINT: Nausea, lack of appetite, 10 lb weight loss, and epigastric discomfort Reason for Admission: SCHUYLER in setting of HFrEF History Obtained From: patient HISTORY OF PRESENT ILLNESS: Carlo is a 44 y.o. male with history of HFrEF (echo in February of this year with left ventricular ejection fraction of 30% and 2+ mitral regurgitation), Hypertension and hyperlipidemia, who was discharge in February. States that since he got discharged he has been taking his heart failure medications regularly but has not been able to follow up with provider due to not having insurance > and his appointments getting cancelled before he could go. Overall feels tired, fatigued, no appetite. After he had a 1L bolus in the ED - he got his appetite back for the first time in a while. In the ED, HR 120, R 18, SBP 179/121, 100%, T 36.9 Labs show VBG7.35/35/37/19, Na 141, Cl 114, Creatinine 2.06, GFR 39.5, MG 2.4, AST 48, ALT 129, TB 1.8, Trop 0.051, BNP 19,900, CBC unremarkable. Concentrated urine, with increase proteinuria CXR showed no acute process. ' Will admit for likely over diuresis resulting in SCHUYLER. Past Medical History: Past Medical History: Diagnosis Date Hypercholesteremia Hypertension Past Surgical History: No past surgical history on file. Social History: Social History Socioeconomic History Marital status: Single Spouse name: Not on file Number of children: Not on file Years of education: Not on file Highest education level: Not on file Occupational History Not on file Tobacco Use Smoking status: Never Smokeless tobacco: Never Vaping Use Vaping status: Never Used Substance and Sexual Activity Alcohol use: Not on file Drug use: Never Sexual activity: Not on file Other Topics Concern Not on file Social History Narrative Not on file Social Drivers of Health Financial Resource Strain: Low Risk (04/28/2024) Overall Financial Resource Strain (CARDIA) Difficulty of Paying Living Expenses: Not very hard Food Insecurity: No Food Insecurity (04/28/2024) Hunger Vital Sign Worried About Running Out of Food in the Last Year: Never true Ran Out of Food in the Last Year: Never true Transportation Needs: No Transportation Needs (04/28/2024) PRAPARE - Transportation Lack of Transportation (Medical): No Lack of Transportation (Non-Medical): No Physical Activity: Insufficiently Active (04/28/2024) Exercise Vital Sign Days of Exercise per Week: 7 days Minutes of Exercise per Session: 10 min Stress: No Stress Concern Present (04/28/2024) [place] [place] [employer] - Occupational Stress Questionnaire Feeling of Stress : Not at all Recent Concern: Stress - Stress Concern Present (02/28/2024) [place] [employer] - Occupational Stress Questionnaire Feeling of Stress : To some extent Social Connections: Unknown (04/28/2024) Social Connection and Isolation Panel [NHANES] Frequency of Communication with Friends and Family: Once a week Frequency of Social Gatherings with Friends and Family: Once a week Attends Holiness Services: Patient unable to answer Active Member of Clubs or Organizations: No Attends Club or Organization Meetings: Never Marital Status: Living with partner Intimate Partner Violence: Not At Risk (04/28/2024) Humiliation, Afraid, Rape, and Kick questionnaire Fear of Current or Ex-Partner: No Emotionally Abused: No Physically Abused: No Sexually Abused: No Housing Stability: Low Risk (04/28/2024) Housing Stability Vital Sign Unable to Pay for Housing in the Last Year: No Number of Times Moved in the Last Year: 0 Homeless in the Last Year: No Family History: No family history on file. Medications Prior to Admission: No current facility-administered medications on file prior to encounter. Current Outpatient Medications on File Prior to Encounter Medication Sig Dispense Refill carvedilol (Coreg) 12.5 MG tablet Take 1 tablet (12.5 mg) by mouth in the morning and 1 tablet (12.5 mg) in the evening. Take with meals. 180 tablet 3 clopidogrel (Plavix) 75 MG tablet Take 1 tablet (75 mg) by mouth daily. 90 tablet 0 furosemide (Lasix) 80 MG tablet Take 1 tablet (80 mg) by mouth daily. 30 tablet 11 losartan (Cozaar) 100 MG tablet Take 1 tablet (100 mg) by mouth daily. 30 tablet 11 rosuvastatin (Crestor) 10 MG tablet Take 1 tablet (10 mg) by mouth Nightly. 30 tablet 11 spironolactone (Aldactone) 25 MG tablet Take 1 tablet (25 mg) by mouth daily. 30 tablet 11 torsemide (Demadex) 20 MG tablet Take 2 tablets (40 mg) by mouth daily. 180 tablet 3 Allergies: No Known Allergies REVIEW OF SYSTEMS: \ above Vitals: BP 132/99 (BP Location: Left arm, Patient Position: Lying) Pulse 108 Temp (!) 35.7 C (96.3 F) (Temporal) Resp 16 Wt 180 lb (81.6 kg) SpO2 98% BMI 23.75 kg/m BMI Classification: Normal Weight (BMI 18.5-24.9) Pulse Ox: SpO2 Av.1 % Min: 98 % Max: 100 % Supplemental O2: PHYSICAL EXAM: Physical Exam Vitals and nursing note reviewed. Constitutional: Appearance: Normal appearance. He is not ill-appearing. HENT: Head: Normocephalic. Mouth/Throat: Mouth: Mucous membranes are dry. Pharynx: Oropharyngeal exudate present. Eyes: General: Right eye: No discharge. Left eye: No discharge. Conjunctiva/sclera: Conjunctivae normal. Pupils: Pupils are equal, round, and reactive to light. Cardiovascular: Rate and Rhythm: Normal rate and regular rhythm. Heart sounds: No murmur heard. Pulmonary: Effort: No respiratory distress. Breath sounds: No wheezing or rales. Musculoskeletal: Right lower leg: No edema. Left lower leg: No edema. Skin: General: Skin is warm and dry. Capillary Refill: Capillary refill takes less than 2 seconds. Coloration: Skin is not jaundiced. Findings: No bruising or lesion. Neurological: General: No focal deficit present. Mental Status: He is alert and oriented to person, place, and time. DATA: CBC: Recent Labs 05/28/24 0811 WBC 5.4 RBC 4.92 HGB 16.6 15.7 HCT 48.3 MCV 98.2 RDW 13.9 PLT 205 BMP: Recent Labs 05/28/24 0811 05/28/24 1249 NA 141 139 K 4.6 4.6 CL 114* 116* CO2 19* 14* BUN 38* 34* CREATININE 2.06* 1.74* GLUCOSE 120* 96 CALCIUM 9.1 8.3* ANIONGAP 8 10 LIVER PROFILE: Recent Labs 05/28/24 0811 AST 48* ALT 129* BILITOT 1.8* ALKPHOS 104 PROT 6.8 PT/INR: No results for input(s): PROTIME, INR in the last 72 hours. CARDIAC ENZYMES: Recent Labs 05/28/24 0811 05/28/24 1249 TROPONINI 0.051* 0.037* Procalcitonin: No results found for: PROCAL Urine Culture: No results found for this or any previous visit. COVID-19 PCR: No results for input(s): COVID19 in the last 72 hours. I reviewed: [x] laboratory results [x] radiographic results At the time of today's encounter. Pt was advised of the results. Data: (CAT1) Reviewed 3 or more notes from different specialty or health system (each=1). (CAT1) Reviewed 3 or more labs/studies ordered by another provider not previously counted (each=1, panels count as 1). (CAT1) Ordered 3 or more new labs and/or studies (each=1, panels count as 1). (LOW: 2x CAT1 or independent historian MOD: 3x CAT1 or 1x CAT3 EXTENSIVE: 3x CAT1 and 1x CAT3) Assessment Discussed management with the ED provider and agree with hospitalization. Acute, acute on chronic, unstable/uncontrolled chronic problems/diagnoses: HFrEF Admit to tele 1L NS in Ed, 100 cc/hr for 10 hours Carvedilol 12.5 mg PO BID HOLD torsemide, lasix and losartan Hydralazine prn for sBP>160, of DBP >100 Regular diet - will adjust to low salt diet once tolerating diet Daily in and out Standing weights Cardiology consult SCHUYLER and ATN on CKD 3b Obtain urine studies HOLD diuretics and ARN Consider alternative HTN treatment in furture. Nephrology consulted Metabolic acidosis No insurance for follow up SW and CM Hypertension Nausea and emesis - improved on evaluations Volume depletion Plan As a result of the above findings & factors, the following mgmt was pursued: - Admit to tele, hold diuretics and arbs, in and outs, daily weights, mIVF x 10 hours, cardiology and nephrology consultations, SHARRI, daily labs, - am labs, replace lytes prn - PT/OT/CM/SW - delirium precautions: increase activity and limit nighttime disturbances - DVT prophylaxis: enoxaparin and encourage ambulation Complexity: Chronic illness with mild to moderate exacerbation, progression, or side effect of tx (MOD). Risk: Admission to hospital-level care was considered or occurred (HIGH). Advance Directive: Full Code Anticipated Discharge - Date - - Location - Home - Pending the following - clinical improvement and set up for follow up Total time spent (which include face to face and non face to face encounters) : 78 minutes. Toxic drug monitoring/narrow therapeutic index drug monitoring : # Drug name : NA # Route administered : NA # Method of monitoring : NA Extended Emergency Contact Information Primary Emergency Contact: Indira Medina Mobile Relation: Sister Secondary Emergency Contact: Kaitlin Hicks Mobile Relation: Significant Other [employer] Calro Medina : 1980 Primary Care Physician: No primary care provider on file. The patient and/or family/surrogate voluntarily agreed to participate in ACP services. Patient s cognitive capacity: intact Code Status: [X] [FULL CODE - Continue all advanced life support: CPR,intubation,invasive procedures] [_] [DNR-CCA - DO NOT do CPR, intubation] [_] [DNR-STONE DRESSER - Comfort care only] [_] DNR form [was/was not] signed Summary of discussion: The patient health care POA/ surrogate is the following: Aurelia Decker. [Condition that instigated the ACP on this DOS, relevant PMH, functional status, goals of care, andwhom this was discussed with including names and relationship to the patient, and any relevant advance care documentation discussion] I answered all the patient/family questions that I could within the range and scope of the current medical situation. We discussed the medical conditions, risks, benefits, outcomes, and goals of careat this time for the patient's medical issues at hand in the face of the patient's chronic issues and current presentation. Total time spent: 3 minutes were spent discussing the patient's resuscitation status, advance care planning, and end of life care, with patient and/or family/surrogate. Mary Ellen Brito MD [facility] documented in this [facility]11-29-2024 Consult note* Maritza Corona [place], CURRICULUM DIRECTOR - WHITING MACHINE OPERATOR - 05/28/2024 1:28 PM ESTAssociated Order(s): IP CONSULT TO NEPHROLOGY [facility] Consult Note Reason for Consult/Chief Complaint: worsening renal function Consulting MD: Dr. Mary Ellen Brito Outpatient Electrical Engineer: N/A History of Present Illness: Carlo Medina is a 44 y.o. male who presents to the emergency department with concern of 1 month history of nausea, lack of appetite, 10 pound weight loss, intermittent epigastric discomfort. Relates this all started after he got out of the hospital and his previous admission for CHF exacerbation.Relates only new medication started at that discharge was torsemide, which she stopped 2 weeks ago,however symptoms has not improved. Relates that his epigastric burning pain is only intermittent. Also reports persistent fatigue. Denies chest pain, shortness of breath, fever, chills. Has had intermittent diarrhea as well. Denies urinary complaints. Notably, has a history of congestive heart failure with a echo in February of this year with left ventricular ejection fraction of 30% and 2+ mitral regurgitation. Has been admitted 3 times since January for congestive heart failure exacerbations. Nephrology is asked to see the patient for worsening renal function. Serum creatinine is currently 2.06 and has a baseline of 1.5-1.7. No known use of NSAIDs. His home medication list includes Lasix,losartan and spironolactone. He has been having nausea and vomiting with diarrhea for about a month. He has had active weight loss associated. No relative hypotension noted. No large fluctuations of hemodynamics noted. No evidence of contrast-induced nephropathy. Urine output is not well-documented. Echocardiogram from 02/29/2024 shows 30% EF. Past Medical History: Past Medical History: Diagnosis Date Hypercholesteremia Hypertension Past Surgical History: No past surgical history on file. Family History: No family history on file. Social History: Social History Tobacco Use Smoking status: Never Smokeless tobacco: Never Vaping Use Vaping status: Never Used Substance Use Topics Drug use: Never Medications: [START ON 05/29/2024] influenza, 0.5 mL, IntraMUSCular, Prior to discharge Allergies: Reviewed Review of Systems: Pertinent positives stated above in HPI. All other systems were reviewed and were negative. Physical exam: Constitutional: Vitals: 05/28/24 1000 05/28/24 1030 05/28/24 1100 05/28/24 1200 BP: (!) 132/101 (!) 130/107 (!) 137/106 BP Location: Patient Position: Pulse: 105 106 108 107 Resp: 18 19 Temp: TempSrc: SpO2: 99% 98% 100% 99% 24HR BLOOD PRESSURE RANGE: Systolic (24hrs), Av , Min:130 , Max:179 ; Diastolic (24hrs), Av, Min:101, Max:121 24HR INTAKE/OUTPUT: Intake/Output Summary (Last 24 hours) at 05/28/2024 1328 Last data filed at 05/28/2024 1015 Gross per 24 hour Intake 1000 ml Output -- Net 1000 ml Physical Exam: Appearance: NAD, awake, alert, cooperative to exam Eyes: PERRLA, clear sclera ENT: hearing normal, no oral thrush, no erythema or exudate on hard or soft palate, tongue normal, dry mucus membranes Neck: supple, no JVD, no thyromegaly Respiratory: breathing unlabored, lungs CTA B/L anteriorly without w/r/r Cardiovascular: heart RRR without m/g/r, pedal pulses palpable Gastrointestinal: abdomen soft, non-tender, non-distended, normoactive bowel sounds. No masses or hernia. Musculoskeletal: normal muscle strength and tone, no edema of BLE Skin: warm and dry, no rash or wounds Neurologic: symmetric strength and sensation Psychiatric: alert and oriented to person/place/time, judgement and insight normal, memory intact, normal mood and range of affect Data: CBC: Recent Labs 05/28/24 0811 WBC 5.4 RBC 4.92 HGB 16.6 15.7 HCT 48.3 MCV 98.2 RDW 13.9 PLT 205 BMP: Recent Labs 05/28/24 08 NA 141 K 4.6 CL 114* CO2 19* BUN 38* CREATININE 2.06* BNP: Recent Labs 05/28/24 08 BNP 19,900* UA: unavailable Imaging: Exam Date/Time: 05/28/2024 08:13 Procedure: XR CHEST 1 VIEW IMPRESSION: FINDINGS AND IMPRESSION: SUPPORT DEVICES: None OSSEOUS STRUCTURES: Degenerative changes in the thoracic spine. HEART AND MEDIASTINUM: The cardiac silhouette is enlarged. The mediastinum is unremarkable. LUNGS AND PLEURA: The lungs are clear. No sizable pleural effusion. Assessment: SCHUYLER/ATN (N17.0) NAGMA (E87.21) CKD3b (N18.32) Chronic HFrEF (I50.23) Volume depletion Nausea and vomiting Weight loss Plan: -Scr currently 2.06, bl~1.5-1.7, non-oliguric, BP elevated -S/p 1 L NS in ER -Repeat labs to gauge response -Await peak of scr followed by subsequent down trend toward baseline -Hold diuresis for now -SCHUYLER workup ordered for thoroughness, noted urine lytes likely to be skewed 2/2 CHF and/or diuresis -Control N/V/D to prevent further volume loss -Check LIZET -Bladder scan x1 for pvr, place agustin for >350cc -Avoid nephrotoxins and contrast dye -Dose all meds per current eGFR -All other care per primary team -We will follow closely with you Thank you for the consult and the opportunity to participate in the care of this patient. Please donot hesitate to call with any questions or concerns. Maritza Linn APRN, WHITING MACHINE OPERATOR [facility], [facility] Cosigned by Saul Briones MD at 05/28/2024 2:33 PM EST Associated attestation - Saul Briones MD - 05/28/2024 2:33 PM EST Notes reviewed and plan discussed with the PA. Agree with above note except Any variance is noted below. SCHUYLER likely 2/2 vol depletion and ongoing use of diuresis nad ARB. Hold the medications. F/up on urine studies. Cont to trend labs. Consider alternative Tx for HTN. Consider Amlodipine scheduled if renal function does not recover. PRN hydral for now. Saul Briones MD [facility] [phone] [id number] NoteSinus tachycardia Probable left atrial enlargement Abnormal R-wave progression, late transition Left ventricular hypertrophy Nonspecific T abnormalities, lateral leads Anterior ST elevation, probably due to LVH Electronically Signed On 05-28-2024 09:01:45 EST by Izaiah Lo [facility] 05-28-2024 NoteSinus tachycardia Probable left atrial enlargement Abnormal R-wave progression, late transition Left ventricular hypertrophy Nonspecific T abnormalities, lateral leads Anterior ST elevation, probably due to LVH Electronically Signed On 05-28-2024 09:01:45 EST by Izaiah Lo [facility] Emergency department Note* Chas Torres MD - 05/28/2024 7:59 AM EST [facility] ED EMERGENCY DEPARTMENT ENCOUNTER Pt Name: Carlo Medina Birthdate 1980 Date of evaluation: 05/28/2024 Provider: Chas Torres MD CHIEF COMPLAINT Chief Complaint Patient presents with Nausea Weight Loss HISTORY OF PRESENT ILLNESS (Location/Symptom, Timing/Onset, Context/Setting, Quality, Duration, Modifying Factors, Severity) Note limiting factors. HPI Carlo Medina is a 44 y.o. male who presents to the emergency department with concern of 1 month history of nausea, lack of appetite, 10 pound weight loss, intermittent epigastric discomfort. Relates this all started after he got out of the hospital and his previous admission for CHF exacerbation.Relates only new medication started at that discharge was torsemide, which she stopped 2 weeks ago,however symptoms has not improved. Relates that his epigastric burning pain is only intermittent. Also reports persistent fatigue. Denies chest pain, shortness of breath, fever, chills. Has had intermittent diarrhea as well. Denies urinary complaints. Notably, has a history of congestive heart failure with a echo in February of this year with left ventricular ejection fraction of 30% and 2+ mitral regurgitation Has been admitted 3 times since January for congestive heart failure exacerbations Nursing Notes were reviewed. REVIEW OF SYSTEMS (2+ for level 4; 10+ for level 5) Review of Systems Constitutional: Positive for fatigue and unexpected weight change. Negative for chills and fever. HENT: Negative for congestion, rhinorrhea and sore throat. Respiratory: Negative for cough and chest tightness. Cardiovascular: Negative for chest pain and palpitations. Gastrointestinal: Positive for abdominal pain and nausea. Negative for constipation, diarrhea and vomiting. Genitourinary: Negative for difficulty urinating, dysuria, frequency and urgency. Neurological: Negative for dizziness, light-headedness and headaches. PAST MEDICAL HISTORY Past Medical History: Diagnosis Date Hypercholesteremia Hypertension SURGICAL HISTORY No past surgical history on file. CURRENT MEDICATIONS Previous Medications CARVEDILOL (COREG) 12.5 MG TABLET Take 1 tablet (12.5 mg) by mouth in the morning and 1 tablet (12.5 mg) in the evening. Take with meals. CLOPIDOGREL (PLAVIX) 75 MG TABLET Take 1 tablet (75 mg) by mouth daily. FUROSEMIDE (LASIX) 80 MG TABLET Take 1 tablet (80 mg) by mouth daily. LOSARTAN (COZAAR) 100 MG TABLET Take 1 tablet (100 mg) by mouth daily. ROSUVASTATIN (CRESTOR) 10 MG TABLET Take 1 tablet (10 mg) by mouth Nightly. SPIRONOLACTONE (ALDACTONE) 25 MG TABLET Take 1 tablet (25 mg) by mouth daily. TORSEMIDE (DEMADEX) 20 MG TABLET Take 2 tablets (40 mg) by mouth daily. ALLERGIES Patient has no known allergies. FAMILY HISTORY No family history on file. SOCIAL HISTORY Social History Socioeconomic History Marital status: Single Tobacco Use Smoking status: Never Smokeless tobacco: Never Vaping Use Vaping status: Never Used Substance and Sexual Activity Drug use: Never Social Drivers of Health Financial Resource Strain: Low Risk (04/28/2024) Overall Financial Resource Strain (CARDIA) Difficulty of Paying Living Expenses: Not very hard Food Insecurity: No Food Insecurity (04/28/2024) Hunger Vital Sign Worried About Running Out of Food in the Last Year: Never true Ran Out of Food in the Last Year: Never true Transportation Needs: No Transportation Needs (04/28/2024) PRAPARE - Transportation Lack of Transportation (Medical): No Lack of Transportation (Non-Medical): No Physical Activity: Insufficiently Active (04/28/2024) Exercise Vital Sign Days of Exercise per Week: 7 days Minutes of Exercise per Session: 10 min Stress: No Stress Concern Present (04/28/2024) [place] [employer] - Occupational Stress Questionnaire Feeling of Stress : Not at all Recent Concern: Stress - Stress Concern Present (02/28/2024) [place] [place] [employer] - Occupational Stress Questionnaire Feeling of Stress : To some extent Social Connections: Unknown (04/28/2024) Social Connection and Isolation Panel [NHANES] Frequency of Communication with Friends and Family: Once a week Frequency of Social Gatherings with Friends and Family: Once a week Attends Holiness Services: Patient unable to answer Active Member of Clubs or Organizations: No Attends Club or Organization Meetings: Never Marital Status: Living with partner Intimate Partner Violence: Not At Risk (04/28/2024) Humiliation, Afraid, Rape, and Kick questionnaire Fear of Current or Ex-Partner: No Emotionally Abused: No Physically Abused: No Sexually Abused: No Housing Stability: Low Risk (04/28/2024) Housing Stability Vital Sign Unable to Pay for Housing in the Last Year: No Number of Times Moved in the Last Year: 0 Homeless in the Last Year: No SCREENINGS PHYSICAL EXAM (up to 7 for level 4, 8 or more for level 5) @EDTRIAGEVSS@ Physical Exam Constitutional: General: He is awake. He is not in acute distress. Appearance: He is not ill-appearing. Cardiovascular: Rate and Rhythm: Normal rate and regular rhythm. Heart sounds: Murmur heard. Systolic murmur is present. Pulmonary: Effort: Pulmonary effort is normal. No respiratory distress. Breath sounds: Normal breath sounds. Abdominal: General: Abdomen is flat. Bowel sounds are normal. Palpations: Abdomen is soft. Tenderness: There is no abdominal tenderness. Musculoskeletal: Right lower le+ Pitting Edema present. Left lower le+ Pitting Edema present. Skin: General: Skin is cool and dry. Capillary Refill: Capillary refill takes 2 to 3 seconds. Neurological: Mental Status: He is alert. DIAGNOSTIC RESULTS EKG (Per Emergency Physician): Please see epiphany interpretation if EKG performed RADIOLOGY (Per Emergency Physician): Chest x-ray-no acute findings ED BEDSIDE ULTRASOUND: Performed by ED Physician - none LABS: Labs Reviewed BASIC METABOLIC PANEL - Abnormal Result Value SODIUM 141 POTASSIUM 4.6 CHLORIDE 114 (*) CARBON DIOXIDE 19 (*) UREA NITROGEN 38 (*) CREATININE 2.06 (*) GLUCOSE 120 (*) CALCIUM 9.1 ANION GAP 8 eGFR 39.5 (*) TROPONIN, WITH SERIAL REFLEX - Abnormal TROPONIN I 0.051 (*) Narrative: Patients with high levels of Biotin oral intake (ie >5 mg/day) may have falsely decreased Troponin levels. NT PRO BNP - Abnormal NT PRO BNP 19,900 (*) HEPATIC FUNCTION PANEL - Abnormal BILIRUBIN, TOTAL 1.8 (*) BILIRUBIN, DIRECT 0.0 ALKALINE PHOSPHATASE 104 AST (SGOT) 48 (*) ALT 129 (*) ALBUMIN 3.8 TOTAL PROTEIN 6.8 MAGNESIUM - Abnormal MAGNESIUM 2.4 (*) BLOOD GAS, VENOUS - Abnormal pH, Venous 7.347 pCO2, Venous 34.6 (*) pO2, Venous 37.0 HCO3, Venous 18.5 (*) O2 Sat, Venous 62.6 Base Excess, Venous -6.1 (*) Hgb, blood gas 16.6 TCO2, Venous 19.6 (*) Source Of Oxygen Room Air Narrative: Assessment of oxygenation is best done with an arterial blood gas determination. Reference ranges for pO2, bicarbonate, and base excess are for mixed venous blood. Specimens drawn from a peripheral vein will often have higher values. INTERPRET WITH CAUTION, pO2 VALUES FALSELY INCREASED DUE TO VACUUM IN TUBE. FOR ACCURATE RESULTS, PLEASE DRAW IN A SYRINGE. POCT GLUCOSE METER UNSOLICITED RESULTS - Abnormal Glucose 120 (*) Narrative: Performed by: Pam Alvarado [facility], [address] [place] [id number] CLIA ID: [id number] CBC WITH AUTO DIFFERENTIAL - Normal Auto WBC 5.4 RBC 4.92 Hemoglobin 15.7 Hematocrit 48.3 MCV 98.2 MCH 31.9 MCHC 32.5 RDW 13.9 Platelets 205 MPV 10.5 nRBC 0.0 Neutrophils Relative 62.6 Lymphocytes Relative 30.9 Monocytes Relative 5.7 Eosinophils Relative 0.4 Basophils Relative 0.2 Immature Grans % 0.2 Neutrophils Absolute 3.4 Lymphocytes Absolute 1.7 Monocytes Absolute 0.3 Eosinophils Absolute 0.0 Basophils Absolute 0.0 Immature Grans Absolute 0.0 THYROID STIMULATING HORMONE - Normal THYROID STIMULATING HORMONE 0.820 TROPONIN I TROPONIN I All other labs were within normal range or not returned as of this dictation. EMERGENCY DEPARTMENT COURSE and DIFFERENTIAL DIAGNOSIS/MDM: Vitals: Vitals: 05/28/24 0848 05/28/24 1000 05/28/24 1030 05/28/24 1100 BP: (!) 135/102 (!) 132/101 (!) 130/107 BP Location: Patient Position: Pulse: (!) 113 105 106 108 Resp: 17 18 Temp: TempSrc: SpO2: 100% 99% 98% 100% Medications sodium chloride 0.9 % bolus 1,000 mL (0 mL IntraVENous Stopped 05/28/24 1015) Medical Decision Making . 44-year-old male presenting with 1 month history of nausea, loss of appetite, fatigue, vomiting. Differential includes electrolyte abnormality in the setting of diuretic use, hepatic congestion/ammonemia, new onset hyperglycemia with HHS/DKA, renal etiology and acute including renal failure/uremia Patient noted to be hypertensive and tachycardic on presentation Initial workup with CBC, BMP, hepatic function panel, troponin, TSH, VBG, chest x-ray, EKG EKG significant for sinus tachycardia with a rate of 124, left axis deviation, evidence of left ventricular hypertrophy, QTc of 473, anterior mild ST elevation in the setting of LVH, depressions present in V5, V6. CBC entirely within normal limits. BMP significant for serum creatinine elevation of 2.06, was previously 1.51-month ago, BUN of 38, mild hyperchloremia at 114. Evidence of a nonanion gap mild metabolic acidosis with a bicarb of 19 and a pCO2 of 34.6 on VBG. Hepatic function panel significant for AST elevation of 48, ALT to 129, slight bilirubin elevation at 1.8. BNP elevated to 19.9 thousand, previously 10k 1 month ago. Troponin slightly elevated to 0.051 In the setting of non-anion gap metabolic acidosis, worsening renal function, tachycardia patient was determined to be hypovolemic. Was given 1 L normal saline bolus. Notably on CDU discharge 10/30 patient was sent home on torsemide 40 mg daily and continued furosemide 80 mg daily. Patient's care and follow-up significantly impacted by patient's self-pay status. Talking with the patient he has applied for Medicaid, however was denied per patient. With patient admitted 3 times since January, and with his ED visit patient patient is high risk of returning and being readmitted for CHF related complications. On reeval after 1 L fluids, patient remained tachycardic to the 110s. With this and his NAGMA, patient would benefit from admission for further hydration and monitoring. [facility] contacted to evaluate for admission. to accept. Patient to be admitted. Diagnoses as of 05/28/24 1153 Metabolic acidosis HFrEF (heart failure with reduced ejection fraction) ([facility]) CONSULTS: None hepatic function panel PROCEDURES: Unless otherwise noted below, none Procedures FINAL IMPRESSION 1. Metabolic acidosis 2. HFrEF (heart failure with reduced ejection fraction) ([facility]) DISPOSITION/PLAN DISPOSITION Admit 05/28/2024 11:46:07 AM PATIENT REFERRED TO: No follow-up provider specified. DISCHARGE MEDICATIONS: New Prescriptions No medications on file (Please note: Portions of this note were completed with a voice recognition program. Efforts were made to edit the dictations but occasionally words and phrases are mis-transcribed.) Form [id number] Chas Torres MD (electronically signed) PGY-1, Family Medicine Chas Torres MD Resident 05/28/24 1153 Cosigned by Izaiah Martins MD at 05/28/2024 12:21 PM EST * Izaiah Martins MD - 05/28/2024 7:59 AM EST Emergency Department Encounter [facility] ED Patient: Carlo Medina : 1980 Date of Evaluation: 05/28/2024 ED Supervising Physician: Izaiah Martins MD I personally evaluated Carlo Medina and made/approved the management plan and take responsibilityfor the patient management. This will serve as my Supervisory note and shared attestation. I did perform a substantive portion of the visit including all aspects of the Medical Decision Making. I wore appropriate PPE for the entirety of this encounter. In brief, Carlo Medina is a 44 y.o. that presents to the emergency department for evaluation of weight loss, nausea, poor appetite. Complains of epigastric discomfort. Denies chest pain. Denies shortness of breath. He does have history of congestive heart failure and does take diuretics. Denies vomiting. Denies diarrhea. Denies excessive thirst. Denies excessive urination. States he has fatigue Focused exam: Awake and alert. Afebrile. Nontoxic. Lungs clear to auscultation. Heart regular rhythm and tachycardia. Abdomen soft nondistended without focal tenderness rebound or guarding. EKG: Sinus tachycardia. Rate of 124. Normal axis. Criteria for LVH. T wave inversion in the lateralleads. No morphology change compared to previous of 04/28/2024. Today's EKG interpreted by this examiner Chest x-ray: No acute infiltrate. No effusion. Interpreted by this examiner. Lab studies obtained. Bicarb is 19. BUN of 38 creatinine 2.06 is higher than patient's baseline. Venous pH is normal at 7.347 and normal glucose at 120. No anemia. No leukocytosis. Bilirubin mildly elevated at 1.8. Lab studies reviewed by this examiner. Brief ED course/MDM: Patient has tachycardia which may be secondary to dehydration as evident by him taking diuretics, losing weight, and laboratory studies showing worsening of his renal insufficiency. Patient given IV fluids here in the ED but persistent having mild tachycardia. I do feel he needs to be monitored to evaluate his heart rate, evaluate for arrhythmia, treat for his renal insufficiency but I do not want to give him fluids too fast to fluid overload and with history of heart failure.Will make arrangements for admission for close monitoring. Diagnostics interpreted by me: Xray(s) chest x-ray as above EKG; see my interpretation elsewhere in the chart All diagnostic, treatment, and disposition decisions were made by myself in conjunction with the Resident. I also supervised reardon portions of any procedures performed by the Resident. For all further details of the patient's emergency department visit, please see their documentation. (Comment: Please note this report has been produced using speech recognition software and may contain errors related to that system including errors in grammar, punctuation, and spelling, as well as words and phrases that may be inappropriate. If there are any questions or concerns please feel freeto contact the dictating provider for clarification.) Izaiah Martins MD [employer] Izaiah Martins MD 05/28/24 1221 * Michelle Potter RN - 05/28/2024 7:59 AM EST Pt states symptoms for about a month. Nausea, vomiting, loss of appetite and weight. Has lost about10 pounds this month without trying. Denies specific abdominal pain but sometimes has epigastric abd pain. Diarrhea sometimes. Denies urinary symptoms. Feels like his mouth is dry all the time. Hx CHF and high blood pressure takes lasix which he takes every day. documented in this [facility]11-29-2024 Emergency department Triage note* Michelle Potter RN - 05/28/2024 7:59 AM EST Pt states symptoms for about a month. Nausea, vomiting, loss of appetite and weight. Has lost about10 pounds this month without trying. Denies specific abdominal pain but sometimes has epigastric abd pain. Diarrhea sometimes. Denies urinary symptoms. Feels like his mouth is dry all the time. Hx CHF and high blood pressure takes lasix which he takes every day. [id number] Emergency department Note* Chas Torres MD - 05/28/2024 7:59 AM EST [facility] ED EMERGENCY DEPARTMENT ENCOUNTER Pt Name: Carlo Medina Birthdate 1980 Date of evaluation: 05/28/2024 Provider: Chas Torres MD CHIEF COMPLAINT Chief Complaint Patient presents with Nausea Weight Loss HISTORY OF PRESENT ILLNESS (Location/Symptom, Timing/Onset, Context/Setting, Quality, Duration, Modifying Factors, Severity) Note limiting factors. HPI Carlo Medina is a 44 y.o. male who presents to the emergency department with concern of 1 month history of nausea, lack of appetite, 10 pound weight loss, intermittent epigastric discomfort. Relates this all started after he got out of the hospital and his previous admission for CHF exacerbation.Relates only new medication started at that discharge was torsemide, which she stopped 2 weeks ago,however symptoms has not improved. Relates that his epigastric burning pain is only intermittent. Also reports persistent fatigue. Denies chest pain, shortness of breath, fever, chills. Has had intermittent diarrhea as well. Denies urinary complaints. Notably, has a history of congestive heart failure with a echo in February of this year with left ventricular ejection fraction of 30% and 2+ mitral regurgitation Has been admitted 3 times since January for congestive heart failure exacerbations Nursing Notes were reviewed. REVIEW OF SYSTEMS (2+ for level 4; 10+ for level 5) Review of Systems Constitutional: Positive for fatigue and unexpected weight change. Negative for chills and fever. HENT: Negative for congestion, rhinorrhea and sore throat. Respiratory: Negative for cough and chest tightness. Cardiovascular: Negative for chest pain and palpitations. Gastrointestinal: Positive for abdominal pain and nausea. Negative for constipation, diarrhea and vomiting. Genitourinary: Negative for difficulty urinating, dysuria, frequency and urgency. Neurological: Negative for dizziness, light-headedness and headaches. PAST MEDICAL HISTORY Past Medical History: Diagnosis Date Hypercholesteremia Hypertension SURGICAL HISTORY No past surgical history on file. CURRENT MEDICATIONS Previous Medications CARVEDILOL (COREG) 12.5 MG TABLET Take 1 tablet (12.5 mg) by mouth in the morning and 1 tablet (12.5 mg) in the evening. Take with meals. CLOPIDOGREL (PLAVIX) 75 MG TABLET Take 1 tablet (75 mg) by mouth daily. FUROSEMIDE (LASIX) 80 MG TABLET Take 1 tablet (80 mg) by mouth daily. LOSARTAN (COZAAR) 100 MG TABLET Take 1 tablet (100 mg) by mouth daily. ROSUVASTATIN (CRESTOR) 10 MG TABLET Take 1 tablet (10 mg) by mouth Nightly. SPIRONOLACTONE (ALDACTONE) 25 MG TABLET Take 1 tablet (25 mg) by mouth daily. TORSEMIDE (DEMADEX) 20 MG TABLET Take 2 tablets (40 mg) by mouth daily. ALLERGIES Patient has no known allergies. FAMILY HISTORY No family history on file. SOCIAL HISTORY Social History Socioeconomic History Marital status: Single Tobacco Use Smoking status: Never Smokeless tobacco: Never Vaping Use Vaping status: Never Used Substance and Sexual Activity Drug use: Never Social Drivers of Health Financial Resource Strain: Low Risk (04/28/2024) Overall Financial Resource Strain (CARDIA) Difficulty of Paying Living Expenses: Not very hard Food Insecurity: No Food Insecurity (04/28/2024) Hunger Vital Sign Worried About Running Out of Food in the Last Year: Never true Ran Out of Food in the Last Year: Never true Transportation Needs: No Transportation Needs (04/28/2024) PRAPARE - Transportation Lack of Transportation (Medical): No Lack of Transportation (Non-Medical): No Physical Activity: Insufficiently Active (04/28/2024) Exercise Vital Sign Days of Exercise per Week: 7 days Minutes of Exercise per Session: 10 min Stress: No Stress Concern Present (04/28/2024) [employer] [place] [employer] - Occupational Stress Questionnaire Feeling of Stress : Not at all Recent Concern: Stress - Stress Concern Present (02/28/2024) [employer] [place] [employer] - Occupational Stress Questionnaire Feeling of Stress : To some extent Social Connections: Unknown (04/28/2024) Social Connection and Isolation Panel [NHANES] Frequency of Communication with Friends and Family: Once a week Frequency of Social Gatherings with Friends and Family: Once a week Attends Holiness Services: Patient unable to answer Active Member of Clubs or Organizations: No Attends Club or Organization Meetings: Never Marital Status: Living with partner Intimate Partner Violence: Not At Risk (04/28/2024) Humiliation, Afraid, Rape, and Kick questionnaire Fear of Current or Ex-Partner: No Emotionally Abused: No Physically Abused: No Sexually Abused: No Housing Stability: Low Risk (04/28/2024) Housing Stability Vital Sign Unable to Pay for Housing in the Last Year: No Number of Times Moved in the Last Year: 0 Homeless in the Last Year: No SCREENINGS PHYSICAL EXAM (up to 7 for level 4, 8 or more for level 5) @EDTRIAGEVSS@ Physical Exam Constitutional: General: He is awake. He is not in acute distress. Appearance: He is not ill-appearing. Cardiovascular: Rate and Rhythm: Normal rate and regular rhythm. Heart sounds: Murmur heard. Systolic murmur is present. Pulmonary: Effort: Pulmonary effort is normal. No respiratory distress. Breath sounds: Normal breath sounds. Abdominal: General: Abdomen is flat. Bowel sounds are normal. Palpations: Abdomen is soft. Tenderness: There is no abdominal tenderness. Musculoskeletal: Right lower le+ Pitting Edema present. Left lower le+ Pitting Edema present. Skin: General: Skin is cool and dry. Capillary Refill: Capillary refill takes 2 to 3 seconds. Neurological: Mental Status: He is alert. DIAGNOSTIC RESULTS EKG (Per Emergency Physician): Please see epiphany interpretation if EKG performed RADIOLOGY (Per Emergency Physician): Chest x-ray-no acute findings ED BEDSIDE ULTRASOUND: Performed by ED Physician - none LABS: Labs Reviewed BASIC METABOLIC PANEL - Abnormal Result Value SODIUM 141 POTASSIUM 4.6 CHLORIDE 114 (*) CARBON DIOXIDE 19 (*) UREA NITROGEN 38 (*) CREATININE 2.06 (*) GLUCOSE 120 (*) CALCIUM 9.1 ANION GAP 8 eGFR 39.5 (*) TROPONIN, WITH SERIAL REFLEX - Abnormal TROPONIN I 0.051 (*) Narrative: Patients with high levels of Biotin oral intake (ie >5 mg/day) may have falsely decreased Troponin levels. NT PRO BNP - Abnormal NT PRO BNP 19,900 (*) HEPATIC FUNCTION PANEL - Abnormal BILIRUBIN, TOTAL 1.8 (*) BILIRUBIN, DIRECT 0.0 ALKALINE PHOSPHATASE 104 AST (SGOT) 48 (*) ALT 129 (*) ALBUMIN 3.8 TOTAL PROTEIN 6.8 MAGNESIUM - Abnormal MAGNESIUM 2.4 (*) BLOOD GAS, VENOUS - Abnormal pH, Venous 7.347 pCO2, Venous 34.6 (*) pO2, Venous 37.0 HCO3, Venous 18.5 (*) O2 Sat, Venous 62.6 Base Excess, Venous -6.1 (*) Hgb, blood gas 16.6 TCO2, Venous 19.6 (*) Source Of Oxygen Room Air Narrative: Assessment of oxygenation is best done with an arterial blood gas determination. Reference ranges for pO2, bicarbonate, and base excess are for mixed venous blood. Specimens drawn from a peripheral vein will often have higher values. INTERPRET WITH CAUTION, pO2 VALUES FALSELY INCREASED DUE TO VACUUM IN TUBE. FOR ACCURATE RESULTS, PLEASE DRAW IN A SYRINGE. POCT GLUCOSE METER UNSOLICITED RESULTS - Abnormal Glucose 120 (*) Narrative: Performed by: Pam Alvarado [facility], [address] [place], [place] [id number] CLIA ID: [id number] CBC WITH AUTO DIFFERENTIAL - Normal Auto WBC 5.4 RBC 4.92 Hemoglobin 15.7 Hematocrit 48.3 MCV 98.2 MCH 31.9 MCHC 32.5 RDW 13.9 Platelets 205 MPV 10.5 nRBC 0.0 Neutrophils Relative 62.6 Lymphocytes Relative 30.9 Monocytes Relative 5.7 Eosinophils Relative 0.4 Basophils Relative 0.2 Immature Grans % 0.2 Neutrophils Absolute 3.4 Lymphocytes Absolute 1.7 Monocytes Absolute 0.3 Eosinophils Absolute 0.0 Basophils Absolute 0.0 Immature Grans Absolute 0.0 THYROID STIMULATING HORMONE - Normal THYROID STIMULATING HORMONE 0.820 TROPONIN I TROPONIN I All other labs were within normal range or not returned as of this dictation. EMERGENCY DEPARTMENT COURSE and DIFFERENTIAL DIAGNOSIS/MDM: Vitals: Vitals: 05/28/24 0848 05/28/24 1000 05/28/24 1030 05/28/24 1100 BP: (!) 135/102 (!) 132/101 (!) 130/107 BP Location: Patient Position: Pulse: (!) 113 105 106 108 Resp: 17 18 Temp: TempSrc: SpO2: 100% 99% 98% 100% Medications sodium chloride 0.9 % bolus 1,000 mL (0 mL IntraVENous Stopped 05/28/24 1015) Medical Decision Making . 44-year-old male presenting with 1 month history of nausea, loss of appetite, fatigue, vomiting. Differential includes electrolyte abnormality in the setting of diuretic use, hepatic congestion/ammonemia, new onset hyperglycemia with HHS/DKA, renal etiology and acute including renal failure/uremia Patient noted to be hypertensive and tachycardic on presentation Initial workup with CBC, BMP, hepatic function panel, troponin, TSH, VBG, chest x-ray, EKG EKG significant for sinus tachycardia with a rate of 124, left axis deviation, evidence of left ventricular hypertrophy, QTc of 473, anterior mild ST elevation in the setting of LVH, depressions present in V5, V6. CBC entirely within normal limits. BMP significant for serum creatinine elevation of 2.06, was previously 1.51-month ago, BUN of 38, mild hyperchloremia at 114. Evidence of a nonanion gap mild metabolic acidosis with a bicarb of 19 and a pCO2 of 34.6 on VBG. Hepatic function panel significant for AST elevation of 48, ALT to 129, slight bilirubin elevation at 1.8. BNP elevated to 19.9 thousand, previously 10k 1 month ago. Troponin slightly elevated to 0.051 In the setting of non-anion gap metabolic acidosis, worsening renal function, tachycardia patient was determined to be hypovolemic. Was given 1 L normal saline bolus. Notably on CDU discharge 04/28 patient was sent home on torsemide 40 mg daily and continued furosemide 80 mg daily. Patient's care and follow-up significantly impacted by patient's self-pay status. Talking with the patient he has applied for Medicaid, however was denied per patient. With patient admitted 3 times since January, and with his ED visit patient patient is high risk of returning and being readmitted for CHF related complications. On reeval after 1 L fluids, patient remained tachycardic to the 110s. With this and his NAGMA, patient would benefit from admission for further hydration and monitoring. [facility] contacted to evaluate for admission. to accept. Patient to be admitted. Diagnoses as of 05/28/24 1153 Metabolic acidosis HFrEF (heart failure with reduced ejection fraction) ([facility]) CONSULTS: None hepatic function panel PROCEDURES: Unless otherwise noted below, none Procedures FINAL IMPRESSION 1. Metabolic acidosis 2. HFrEF (heart failure with reduced ejection fraction) ([facility]) DISPOSITION/PLAN DISPOSITION Admit 05/28/2024 11:46:07 AM PATIENT REFERRED TO: No follow-up provider specified. DISCHARGE MEDICATIONS: New Prescriptions No medications on file (Please note: Portions of this note were completed with a voice recognition program. Efforts were made to edit the dictations but occasionally words and phrases are mis-transcribed.) Form v2016.J.[id number] Chas Torres MD (electronically signed) PGY-1, Family Medicine Chas Torres MD Resident 05/28/24 1153 Cosigned by Izaiah Martins MD at 05/28/2024 12:21 PM EST [id number] Emergency department Note* Izaiah Martins MD - 05/28/2024 7:59 AM EST Emergency Department Encounter [facility] ED Patient: Carlo Medina : 1980 Date of Evaluation: 05/28/2024 ED Supervising Physician: Izaiah Martins MD I personally evaluated Carlo Medina and made/approved the management plan and take responsibilityfor the patient management. This will serve as my Supervisory note and shared attestation. I did perform a substantive portion of the visit including all aspects of the Medical Decision Making. I wore appropriate PPE for the entirety of this encounter. In brief, Carlo Medina is a 44 y.o. that presents to the emergency department for evaluation of weight loss, nausea, poor appetite. Complains of epigastric discomfort. Denies chest pain. Denies shortness of breath. He does have history of congestive heart failure and does take diuretics. Denies vomiting. Denies diarrhea. Denies excessive thirst. Denies excessive urination. States he has fatigue Focused exam: Awake and alert. Afebrile. Nontoxic. Lungs clear to auscultation. Heart regular rhythm and tachycardia. Abdomen soft nondistended without focal tenderness rebound or guarding. EKG: Sinus tachycardia. Rate of 124. Normal axis. Criteria for LVH. T wave inversion in the lateralleads. No morphology change compared to previous of 04/28/2024. Today's EKG interpreted by this examiner Chest x-ray: No acute infiltrate. No effusion. Interpreted by this examiner. Lab studies obtained. Bicarb is 19. BUN of 38 creatinine 2.06 is higher than patient's baseline. Venous pH is normal at 7.347 and normal glucose at 120. No anemia. No leukocytosis. Bilirubin mildly elevated at 1.8. Lab studies reviewed by this examiner. Brief ED course/MDM: Patient has tachycardia which may be secondary to dehydration as evident by him taking diuretics, losing weight, and laboratory studies showing worsening of his renal insufficiency. Patient given IV fluids here in the ED but persistent having mild tachycardia. I do feel he needs to be monitored to evaluate his heart rate, evaluate for arrhythmia, treat for his renal insufficiency but I do not want to give him fluids too fast to fluid overload and with history of heart failure.Will make arrangements for admission for close monitoring. Diagnostics interpreted by me: Xray(s) chest x-ray as above EKG; see my interpretation elsewhere in the chart All diagnostic, treatment, and disposition decisions were made by myself in conjunction with the Resident. I also supervised reardon portions of any procedures performed by the Resident. For all further details of the patient's emergency department visit, please see their documentation. (Comment: Please note this report has been produced using speech recognition software and may contain errors related to that system including errors in grammar, punctuation, and spelling, as well as words and phrases that may be inappropriate. 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 Discussed with Ben Berger [facility] who suggested speaking with [facility] Financial Assistance 05/05: According to [facility] [employer] Management Assistance, pt does not have an application pending. Marcus Carroll, Low Pressure Kettle Operator assisting to find a contact at [facility] for an update. 05/10: Still no word on a [facility] contact. Attempting to find contact through Marcus Carroll and Marcus Rubio of [facility] Customer Service. 05/17: No update. Sent request to Low Pressure Kettle Operator team. 05/19: Received notification from Mckayla Ray from [facility], it appears current HCAP application isstill pending. 05/31: Pt rehospitalized for ADHF. Message sent to Rayna Carroll check status who reports HCAP (denied 05/19/24) cannot be approved until a formal MD denial is received --> dept now looking to track down pt's Medicaid Notice of Action. Notified by [facility] that [facility] screened the patient over income for Medicaid, but did not assist with a Medicaid application for denial. [employer] to go see patient today and have him sign forms to apply for Medicaid for denial so HCAP application can be processed. Will continue to follow. 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 Discussed with Ben Berger [facility] who suggested speaking with [facility] Financial Assistance 05/05: According to [facility] [employer] Management Assistance, pt does not have an application pending. Marcus Carroll, Low Pressure Kettle Operator assisting to find a contact at [facility] for an update. 05/10: Still no word on a [facility] contact. Attempting to find contact through Marcus Carroll and Marcus Rubio of [facility] Customer Service. 05/17: No update. Sent request to Low Pressure Kettle Operator team. 05/19: Received notification from Mckayla Ray from [facility], it appears current HCAP application isstill pending. 05/31: Pt rehospitalized for ADHF. Message sent to Rayna Carroll check status who reports HCAP (denied 05/19/24) cannot be approved until a formal MD denial is received --> dept now looking to track down pt's Medicaid Notice of Action. Notified by [facility] that [facility] screened the patient over income for Medicaid, but did not assist with a Medicaid application for denial. [employer] to go see patient today and have him sign forms to apply for Medicaid for denial so HCAP application can be processed. Will continue to follow. documented in this [facility]11-01-2024 Telephone encounter Note* Telephone Encounter - Sergei Astudillo MD - 04/30/2024 4:31 PM EDT Spoke with patient. Patient still describes burning chest pain. No pressure, aching, SOB, or new symptoms. Low concern for cardiac chest pain based on recent admission and descriptions. Encouraged to continue cardiac meds and gave ER precautions for cardiac chest pain. Sergei Astudillo MD Department of Cardiovascular Disease, Division of Heart Failure [facility] [facility] Work Phone: [phone]) 849-559511-01-2024 Miscellaneous Notes* Telephone Encounter - Sergei Astudillo MD - 04/30/2024 4:31 PM EDT Spoke with patient. Patient still describes burning chest pain. No pressure, aching, SOB, or new symptoms. Low concern for cardiac chest pain based on recent admission and descriptions. Encouraged to continue cardiac meds and gave ER precautions for cardiac chest pain. 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 Pt hasbeen unable to establish with a PCP or HFC as he is uninsured. HCAP application pending. Just discharged on 04/28- seen by Dr. Astudillo during admission for a/c HFrEF. Call to pt, states CP had completely resolved when discharged on Friday but came back on night. This RN asked pt about chest pain: frequency, duration, 0-10 rating, does it radiate, etc. Pt was unable to describe CP and kept responding with I just want to know why I could possibly be having CP still? -Informed pt that if unable to quantify or describe CP over the phone, recommend coming to the ED for provider evaluation. Pt states I do not think I am having a heart attack or anything, I will just wait for a doctor to call me today or tomorrow. Dr. Astudillo updated. 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 Pt hasbeen unable to establish with a PCP or HFC as he is uninsured. HCAP application pending. Just discharged on 04/28- seen by Dr. Astudillo during admission for a/c HFrEF. Call to pt, states CP had completely resolved when discharged on Friday but came back on night. This RN asked pt about chest pain: frequency, duration, 0-10 rating, does it radiate, etc. Pt was unable to describe CP and kept responding with I just want to know why I could possibly be having CP still? -Informed pt that if unable to quantify or describe CP over the phone, recommend coming to the ED for provider evaluation. Pt states I do not think I am having a heart attack or anything, I will just wait for a doctor to call me today or tomorrow. Dr. Astudillo updated. 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 Call to Billing ([phone]) to discuss pending HCAP application which was completed on 04/28. Per Billing, application should be processed within 4-6 weeks max. Pt still without PCP and previously declinedscheduling in the [facility]. Pt is a high readmission risk, has been admitted 3x for HF since February. Will continue to follow chart and schedule [facility] follow up as soon as able. [facility] [id number] Miscellaneous Notes* Telephone Encounter - Dia Gaitan RN - 04/29/2024 10:04 AM EDT HF booster pump oiler: Confirmed with [facility] that pt able to be scheduled once HCAP is approved. Call to Christi ([phone]) to discuss pending HCAP application which was completed on 04/28. Per Billing, application should be processed within 4-6 weeks max. Pt still without PCP and [facility]scheduling in the [facility]. Pt is a high readmission risk, has been admitted 3x for HF since February. Will continue to follow chart and schedule [facility] follow up as soon as able. documented in this encounterSDetwiler Memorial [id number] Miscellaneous Notes* Care Coordination - MICHAEL Addison - 04/28/2024 3:06 PM EDT CDU SW follow up. Communicated with Christian from [facility]. Financial screening completed with patient this afternoon. Patient was over income for Medicaid program. [employer] referred patient to Hospital Care Assurance Program; application completed and submitted. HCAP will assist with current [facility] and other [facility] hospital encounters for up to 3 months if approved. HCAP will not assist with home going prescriptions. * Care Coordination - MICHAEL Addison - 04/28/2024 1:50 PM EDT CDU SW follow up. Patient discussed in morning rounds with CDU provider, public health staff nurse and TCC. Patient uninsured. SW [facility] to [facility] insurance [facility] representative Christian to determine if agency received referral from [facility] [employer] Supervisor (FC) to see patient/complete financial screening. Per [employer], agencyhas not received referral. SW reached out to [facility] [employer] Supervisor Jose to review. After review, FC decided to refer to [employer] this afternoon. Await outcome of [facility]'s financial screening. Per CDU provider, patient may be released this afternoon. Provider concerned about patient's ability to pay for home-going meds. Good Rx card given to CDU provider who will pass on to patient. Pending outcome of [facility]'s financial screening and cost of prescriptions, patient may be eligible for medication assistance through [facility]'s Indigent Fund. SW following. * Care Coordination - Dia Gaitan RN - 04/28/2024 10:00 AM EDT HF booster pump oiler: Chart reviewed. Pt receiving treatment for acute on chronic HFrEF. Pt newly diagnosed with HFrEF in 02/2024 and has been unable to attend any follow up d/t lack of insurance coverage and inability to self pay. Since diagnosis, multiple unsuccessful attempts have beenmade by this RN to connect pt with SW in the [facility] and to confirm insurance status. - Spoke with pt this AM, MD was denied in Feb because pt did not include 6 pay stubs with application. - Updated HFS. HF action plan added to AVS. Recommendations (see below for screenings): - If no systemic infection suspected/confirmed, iron studies with IV Venofer if indicated per HF protocol. - Consult placed to as pt uninsured. - Transfer to 5W HF PCU under progressive care LOC if pt to transition from Obs to IP status. - Generic medications pending financial assistance/ Heart Failure Accreditation Quality Metrics All Clinical Practice Guidelines and references available on the [facility] Heart Failure resource page (Resources --> [facility] --> Heart Failure) Established Bending Shed Worker: None Follow up scheduled within 14 days: TBD- pending insurance/financial assistance. Recommend HF ISAAC. LVEF evaluation within the past 12 months: Yes NYHA class documentation by provider: Yes HF order set used: Yes Daily weight ordered:Yes Intake and output ordered: Yes HF education added: Yes HF care plan added: Yes Class 1 HFrEF GDMT (Treatment pathway available on [facility] Heart Failure resource page) LUCRECIA/ARB/ARNI: Yes, losartan 100mg daily BB: Yes, carvedilol 6.25mg BID MRA: Yes, spironolactone 25mg daily SGLT2-I: No- if financial assistance able to be obtained for follow up and medications, recommend dapagliflozin 10mg daily (HFrEF, per last Cardiology note- probable CKD) Diuretic: Yes, 60mg IV lasix BID (GRAVE DIGGER 80mg furosemide daily) If pt has been compliant with diureticat home, torsemide should be considered for home going. Hydral/ISDN: N/A Management of Iron Deficiency in Heart Failure Patients LVEF < 50%: Yes Hemoglobin < 15 or < 13 in male /< 12 in female with CKD: Yes , 12.1 Ferritin (must be within the past 90 days): No Iron saturation (must be within the past 90 days): No Systemic infection suspected / present: No IV Venofer recommended: TBD HRIS ANALYST-D Appropriateness Screen (Referral pathway available on [facility] Heart Failure resource page) LVEF < 35%: Yes, pt will require LVEF reassessment after ~ 90 days of optimal GDMT +probable ischemic evaluation. Cardiac Rehab - N/A, uninsured Heart Failure Triggers for Consult to Palliative Care > 2 admissions in the last 12 months for ADHF: Yes * Care Plan - Jillian Ferguson RN - 04/28/2024 8:20 AM EDT Problem: Pain - Adult Goal: Verbalizes/displays adequate comfort level or baseline comfort level Outcome: Progressing Problem: Safety - Adult Goal: Free from fall injury Outcome: Progressing Problem: Discharge Planning Goal: Discharge to home or other facility with appropriate resources Outcome: Progressing Problem: Chronic Conditions and Co-morbidities Goal: Patient's chronic conditions and co-morbidity symptoms are monitored and maintained or improved Outcome: Progressing The patient is Moderately Stable - Low risk of patient condition declining or worsening The patient's goals for the shift include Start finding out answers The clinical goals for the shift include Patient will remain hemodynamically stable this shift Over the shift, the patient did not make progress toward the following goals. Barriers to progression include none. Recommendations to address these barriers include n/a. documented in this encounterSDetwiler Memorial [id number] Note* Care Coordination - MICHAEL Addison - 04/28/2024 3:06 PM EDT CDU SW follow up. Communicated with Christian from [employer]. Financial screening completed with patient this afternoon. Patient was over income for Medicaid program. [employer] referred patient to Hospital Care Assurance Program; application completed and submitted. HCAP will [facility] for up to 3 months if approved. HCAP will not assist with home going prescriptions. [facility] [id number] Note* Care Coordination - MICHAEL Addison - 04/28/2024 3:06 PM EDT CDU SW follow up. Communicated with Christian from [employer]. Financial screening completed with patient this afternoon. Patient was over income for Medicaid program. [facility] referred patient to Hospital Care Assurance Program; application completed and submitted. HCAP will assist with [facility] for up to 3 months if approved. HCAP will not assist with home going prescriptions. [facility] [id number] Nurse Note* Jillian Ferguson RN - 04/28/2024 3:02 PM EDT Discharge instructions given to and reviewed in detail with patient and his significant other. Patient verbalized understanding of all discharge instructions, all questions answered at the best of myability at this time. [id number] Nurse Note* Jillian Ferguson RN - 04/28/2024 3:02 PM EDT Discharge instructions given to and reviewed in detail with patient and his significant other. Patient verbalized understanding of all discharge instructions, all questions answered at the best of myability at this time. * Jillian Ferguson RN - 04/28/2024 10:09 AM EDT Notified Karrie DOUGHNUT MACHINE OPERATOR HELPER CDU patient reported 2/10 chest pain, STAT EKG obtained. Karrie read EKG and stated it's okay, chronic findings. Administer nitroglycerin prn and morphine prn. documented in this [facility]10-30-2024 Consult note* MICHAEL Addison - 04/28/2024 2:09 PM EDTAssociated Order(s): IP CONSULT TO SOCIAL WORK SW consult received today from Dia Gaitan RN, Uninsured, unable to pay out of pocket for follow up appointments- was denied MD in Feb because did not provide pay stubs. See SW progress note(s). [facility] [id number] [facility]10-30-2024 Consult note* MICHAEL Addison - 04/28/2024 2:09 PM EDTAssociated Order(s): IP CONSULT TO SOCIAL WORK SW consult received today from Dia Gaitan RN, Uninsured, unable to pay out of pocket for follow up appointments- was denied MD in Feb because did not provide pay stubs. See SW progress note(s). * Rupesh Troy MD - 04/28/2024 8:42 AM EDTAssociated Order(s): IP CONSULT TO CARDIOLOGY [facility] Cardiology /Electrophysiology Consult Note Reason for Consult/Chief Complaint: CHF Referring provider: Dr. 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 male with a PMH of recently diagnosed HFrEF, hypertension, and hyperlipidemia admitted for chest pain, shortness of breath and non-productive cough. Cardiology HF Team consulted for concern for acute decompensated HF. The patient was diagnosed with HFrEF during the 02/28/2024 admission, and had subsequent admission for HF exacerbation on 03/05/2024 during which his GDMT was further adjusted after being treated with IV lasix. Evaluation during this hospitalization thus far showed a positive D-dimer, [place] [address] pg/mL. CTA was negative for PE, but positive for pulmonary vascular congestion and bilateral pleural effusions. ECG showedLVH and old ST depressions in inferior and lateral leads. Viral respiratory panel is negative for SARS-CoV-2, influenza A and B, and RSV; respiratory cultures are pending. Currently, patient states he had burning chest pain last night while laying in bed, which prompted the ED visit. Pain lasted a few hours. He states pain has decreased in intensity to a 3/10 with morphine and is currently intermittent, and non-radiating. He states chest pain is burning. Pain does not radiate and is not reproducible by palpation or exertion. He reports sick contacts at work. He states the cough and sore throat are slowly resolving. He denies any fever, chills, fatigue, shortness of breath, orthopnea, fatigue, edema, or decreased exercise tolerance. He never smoked, does not drink or use illicit drugs. He has not followed with cardiology outpatient--would like to establish near [place], [place]--and does not have PCP due to lack of health insurance and is currently in process of trying to enroll into Medicaid. Assessment/Plan HF NYHA Class [] I [x] II [] III [] IV []Unable to assess Heart failure with reduced ejection fraction Hypertension; uncontrolled - Echo from 02/29/2024 shows EF 30%, global hypokinesis, diastolic dysfunction, normal [place] [address] pg/mL (~9,000 during 02/2024 admission) and pleural effusions present are presenton CTA. Suspect etiology of his current decompensation and diagnosis of HFrEF is likely secondary to prolonged uncontrolled hypertension. - Jugular veins distended on physical exam. No edema, SOB, orthopnea, or PND. Plan: - Increase carvedilol carvedilol from 6.25 BID to 12.5 mg BID for better control of blood pressure. - Continue losartan 100 mg daily - Continue spironolactone 25 mg daily - While patient would benefit from clinical observation while being diuresed, he prefers to be discharged at this time. Therefore, would increase furosemide to 80 mg BID for the next two days, then continue 80 mg PO daily, thereafter - Establish with outpatient cardiology (near [place]). Social work following to help patient acquire health insurance. - Would benefit from completion of ischemic evaluation in the OP (see below) Chest pain - Do not suspect current chest pain to be cardiac in underlying etiology. Possible pleuritic component. - Normal troponin and old ST segment depressions on ECG - Recommend outpatient ischemic evaluation with either Cardiac Stress test or Coronary CTA, given his recently diagnosed HFrEF. Would also rule out other non- ischemic etiologies in the OP (as he doesnot have health insurance); normal TSH levels on 03/05/24 - Continue clopidogrel 75 mg Hyperlipidemia - Continue rosuvastatin 10 mg nightly Medications: carvedilol, 12.5 mg, Oral, BID WC clopidogrel, 75 mg, Oral, Daily furosemide, 60 mg, IntraVENous, BID [Held by provider] furosemide, 80 mg, Oral, Daily losartan, 100 mg, Oral, Daily rosuvastatin, 10 mg, Oral, Nightly spironolactone, 25 mg, Oral, Daily Infusion Medications: Physical Examination: Vitals: 04/28/24 0739 04/28/24 1010 04/28/24 1014 04/28/24 1029 BP: (!) 136/101 (!) 140/104 121/92 BP Location: Patient Position: Pulse: 114 120 110 106 Resp: 16 Temp: (!) 35.9 C (96.6 F) 36.6 C (97.9 F) TempSrc: Temporal Temporal SpO2: 97% 95% Weight: 191 lb 12.8 oz (87 kg) Height: Intake/Output Summary (Last 24 hours) at 04/28/2024 1509 Last data filed at 04/28/2024 1023 Gross per 24 hour Intake 1000 ml Output 600 ml Net 400 ml Wt Readings from Last 3 Encounters: 04/28/24 191 lb 12.8 oz (87 kg) 03/07/24 186 lb 6.4 oz (84.6 kg) 02/29/24 205 lb (93 kg) Physical Exam Constitutional: General: He is not in acute distress. Appearance: Normal appearance. He is not ill-appearing or toxic-appearing. Neck: Vascular: JVD present. Cardiovascular: Rate and Rhythm: Regular rhythm. Tachycardia present. Pulses: Normal pulses. Heart sounds: S1 normal and S2 normal. No murmur heard. Pulmonary: Effort: Pulmonary effort is normal. Breath sounds: Normal breath sounds and air entry. No wheezing, rhonchi or rales. Abdominal: General: Abdomen is flat. There is no distension. Palpations: Abdomen is soft. Tenderness: There is no abdominal tenderness. Musculoskeletal: Right lower leg: No edema. Left lower leg: No edema. Skin: General: Skin is warm and dry. Neurological: Mental Status: He is alert and oriented to person, place, and time. Psychiatric: Attention and Perception: Attention and perception normal. Judgment: Judgment normal. Laboratory Tests: Recent Labs 04/28/24 0331 NA 140 K 4.2 CL 109* CO2 26 BUN 21* CREATININE 1.58* EGFR 54.3* Recent Labs 04/28/24 0331 04/28/24 0622 04/28/24 0959 TROPONINI 0.020 0.025 0.032 Recent Labs 04/28/24 033 WBC 8.0 HGB 12.1* HCT 36.0* MCV 93.5 PLT 277 Lab Results Component Value Date HGBA1C 5.0 03/01/2024 Lab Results Component Value Date TSH 4.380 03/05/2024 Lab Results Component Value Date CHOL 172 02/29/2024 Lab Results Component Value Date HDL 28 (L) 02/29/2024 Lab Results Component Value Date LDLCALC 126 (H) 02/29/2024 Lab Results Component Value Date TRIG 88 02/29/2024 No results found for: CHOLHDL No results found for: LDLCHOLESTER Recent Labs 04/28/24 0331 BNP 10,500* No results for input(s): INR in the last 72 hours. No results found for: IRON, TIBC, FERRITIN Radiology: CXR: personally reviewed: Cardiac Tests Personally Reviewed: Last EKG 04/28/24 ECG 12-LEAD (Preliminary) This result has not been signed. Information might be incomplete. Impression Sinus tachycardia Probable left atrial enlargement Probable LVH with secondary repol abnrm Reports reviewed: Last Echo 02/28/24 TRANSTHORACIC ECHOCARDIOGRAM (TTE) COMPLETE (CONTRAST/BUBBLE/3D PRN) 02/29/2024 9:39 AM (Final) Interpretation Summary Left Ventricle: Left ventricle is mildly dilated. Mildly increased wall thickness. Mild septal thickening. Moderately reduced left ventricular systolic function. EF by 2D Simpsons Biplane is 30%. Global longitudinal strain is -7.1%. Severe global hypokinesis present. Grade II diastolic dysfunction with increased LAP. Right Ventricle: Right ventricle size is normal. Normal systolic function. TAPSE is 2.5 cm. Aortic Valve: No stenosis. AV mean gradient is 3 mmHg. AV peak velocity is 1.2 m/s. LVOT:AV VTI Index is 0.76. Mitral Valve: Moderate (2+) regurgitation. Tricuspid Valve: RVSP is 23 mmHg. Left Atrium: Left atrium is moderately dilated. LA Vol Index A/L is 42 mL/m2. Aorta: Normal sized sinuses of Valsalva and ascending aorta. Sinuses of Valsalva diameter is 3.2 cm. Ao ascending diameter is 3.3 cm. IVC/SVC: IVC diameter is normal and decreases greater than 50% during inspiration; therefore the estimated right atrial pressure is normal (~3 mmHg). Signed by: Radha Parikh on 02/29/2024 9:39 AM Last Cath No results found for this or any previous visit. Last Stress Test No results found for this or any previous visit. Last EP study No results found for this or any previous visit. EF BP Date Value Ref Range Status 02/29/2024 30 (A) 55 - 100 % Final AKILAH SCORE: 81 points (2%) AKILAH Score Link Adiaratou Ba, Medical Student Sydni Goddard MD DATE of SERVICE: 04/28/2024 Patient independently examined and evaluated by resident physician. Agree with above history, physical examination, assessment, and plan with changes/additions made through out. Cosigned by Sergei Astudillo MD at 04/28/2024 4:05 PM EDT Associated attestation - Sergei Astudillo MD - 04/28/2024 4:05 PM EDT I, Dr. Sergei Astudillo, saw and evaluated the patient on 04/28/2024. I personally obtained the reardon and critical portions of the history and physical exam. I reviewed the chart, the resident's documentation, and discussed the patient with the resident. I agree with the resident's medical decision making and have edited the note to reflect my clinical findings and my assessment and plan. In summary, Carlo Medina is a 44-year-old man with a newly diagnosed history of heart failure with reduced ejection fraction, he has hypertension which appears to be poorly controlled. I suspect that this is the likely etiology of his cardiomyopathy and heart failure syndrome. He is uninsured andhas thus not been able to have proper follow-up. He presented initially with chest discomfort, he has had flat essentially negative troponins, no significant changes to his prior ECGs. His chest painby description is noncardiac. His NT proBNP significantly elevated and he was quite hypertensive onarrival and tachycardic. On physical exam he does appear to have neck vein elevation, certainly he has acute on chronic heart failure with reduced ejection fraction. He may or may not also have an upper respiratory viral infection, certainly this may have been a potential trigger. I discussed the patient's diagnosis with himself and his significant other, I discussed fluid restrictions, medication compliance, and following through with insurance/aide. -Recommend increasing his carvedilol to 12.5 mg twice daily -Would prefer him to be on torsemide 40 mg twice daily, however if torsemide not affordable he may continue to take furosemide 80 mg twice daily for the weekend I did offer the patient to stay overnight for ongoing IV diuresis, he opted for discharge which is reasonable given that he is hemodynamically stable Sergei Astudillo MD Department of Cardiovascular Disease, Division of Heart Failure [facility] [place] 4:05 PM 04/28/24 documented in this encounterSDetwiler Memorial [id number] Note* Care Coordination - MICHAEL Addison - 04/28/2024 1:50 PM EDT CDU SW follow up. Patient discussed in morning rounds with CDU provider, public health staff nurse and TCC. Patient uninsured. SW reached out to [facility] insurance verification representative Christian to determine if agency received referral from [facility] [employer] Supervisor (FC) to see patient/complete financial screening. Per [employer], agencyhas not received referral. SW reached out to [facility] [employer] Supervisor Jose to review. After review, FC decided to refer to [facility] this afternoon. Await outcome of [facility]'s financial screening. Per CDU provider, patient may be released this afternoon. Provider concerned about patient's ability to pay for home-going meds. Good Rx card given to CDU provider who will pass on to patient. Pending outcome of [facility]'s financial screening and cost of prescriptions, patient may be eligible for medication assistance through [facility]'s Indigent Fund. SW following. [facility] [id number] Note* Care Coordination - MICHAEL Addison - 04/28/2024 1:50 PM EDT CDU SW follow up. Patient discussed in morning rounds with CDU provider, public health staff nurse and TCC. Patient uninsured. SW reached out to [facility] insurance verification representative Christian to determine if agency received referral from [facility] [employer] Supervisor (FC) to see patient/complete financial screening. Per [employer], agencyhas not received referral. SW reached out to [facility] [employer] Supervisor Jose to review. After review, FC decided to refer to [facility] this afternoon. Await outcome of [facility]'s financial screening. Per CDU provider, patient may be released this afternoon. Provider concerned about patient's ability to pay for home-going meds. Good Rx card given to CDU provider who will pass on to patient. Pending outcome of [facility]'s financial screening and cost of prescriptions, patient may be eligible for medication assistance through [facility] Ind[facility]. SW following. [id number] Discharge [facility]* Discharge Instructions* Dia Gaitan RN - 04/28/2024 10:28 AM EDT My Heart Failure Action Plan Use the below chart as a guide for daily symptom monitoring after you obtain your morning weight. My Bending Shed Worker: [facility] [phone] My Diagnosis: Heart failure with reduced ejection fraction My Ejection Fraction: ~30% in 02/2024 NORMAL 50-65% My Exercise Goal: as tolerated My Weight Goal: Standing weight day of hospital discharge Weigh yourself daily using the same scale. If you gain more than 3 pounds in 24 hours or 5 pounds in a week Call your Bending Shed Worker!! My Diet Goal: General diet recommendations for heart failure patients are less than 2,000mg sodium and less than 2 liters of fluid per day. This will help with symptoms of fluid retention, such as swelling and shortness of breath. See provider orders for additional/alternative recommendations. Emergency Room Visits: Our goal is to improve your quality of life and help you avoid a visit to the emergency room or hospital. If we work together, we can achieve this goal. But, if you feel you need to call 911 or go tothe emergency room, please do so. If you go to the emergency room, please bring your list of medicines and your daily weight chart with you. GREEN ZONE Doing well today Weight gained is no more than 3 pounds a day or 5 pounds a week. No swelling in feet, ankles, legs or stomach. No more swelling than usual. No more trouble breathing than usual. No change in my sleep. No other problems. Actions: I am doing fine. I will take my medicine, follow my diet, see my doctor, exercise, and watch for symptoms YELLOW ZONE Having a bad day or flare up Weight gained of more than 3 pounds in one day or 5 pounds in one week. New swelling in ankle, leg, knee, or thigh. Bloating in belly, pants feel tighter. Swelling in hands or face. Coughing or trouble breathing while walking or talking. Harder to breathe last night. Have trouble sleeping, wake up short of breath. Much more tired than usual. Not eating. Pain in my chest or bad leg cramps. Feel weak or dizzy. Signs and symptoms of Dehydration: dark and/or less urine, dry cracked mouth/skin, lethargic, lightheaded, dizzy, low blood pressure readings with high heart rate Actions: I need to take action and call my doctor or nurse today. RED ZONE NEED MEDICAL CARE NOW Weight gain of 5 pounds overnight. Chest pain or pressure that does not go away. Feel less alert. Wheezing or have trouble breathing when at rest. Cannot sleep lying down. Cannot take my water pill. Pass out or faint. ACTIONS I need to call my doctor or nurse now! Call 911 if I have chest pain or cannot breathe. * Attachments The following attachments cannot be sent through Care Everywhere. * Heart Failure Discharge Instructions, Adult (Moroc[place]) documented in this [facility]10-30-2024 Nurse Note* Jillian Ferguson RN - 04/28/2024 10:09 AM EDT Notified Karrie DOUGHNUT MACHINE OPERATOR HELPER CDU patient reported 2/10 chest pain, STAT EKG obtained. Karrie read EKG and stated it's okay, chronic findings. Administer nitroglycerin prn and morphine prn. [id number]* Care Coordination - Dia Gaitan RN - 04/28/2024 10:00 AM EDT HF booster pump oiler: Chart reviewed. Pt receiving treatment for acute on chronic HFrEF. Pt newly diagnosed with HFrEF in 02/2024 and has been unable to attend any follow up d/t lack of insurance coverage and inability to self pay. Since diagnosis, multiple unsuccessful attempts have beenmade by this RN to connect pt with SW in the [facility] and to confirm insurance status. - Spoke with pt this AM, MD was denied in Feb because pt did not include 6 pay stubs with application. - Updated HFS. HF action plan added to AVS. Recommendations (see below for screenings): - If no systemic infection suspected/confirmed, iron studies with IV Venofer if indicated per HF protocol. - Consult placed to as pt uninsured. - Transfer to 5W HF PCU under progressive care LOC if pt to transition from Obs to IP status. - Generic medications pending financial assistance/ Heart Failure Accreditation Quality Metrics All Clinical Practice Guidelines and references available on the [employer] Heart Failure resource page (Resources --> [facility] --> Heart Failure) Established Bending Shed Worker: None Follow up scheduled within 14 days: TBD- pending insurance/financial assistance. Recommend HF ISAAC. LVEF evaluation within the past 12 months: Yes NYHA class documentation by provider: Yes HF order set used: Yes Daily weight ordered:Yes Intake and output ordered: Yes HF education added: Yes HF care plan added: Yes Class 1 HFrEF GDMT (Treatment pathway available on [facility] Heart Failure resource page) LUCRECIA/ARB/ARNI: Yes, losartan 100mg daily BB: Yes, carvedilol 6.25mg BID MRA: Yes, spironolactone 25mg daily SGLT2-I: No- if financial assistance able to be obtained for follow up and medications, recommend dapagliflozin 10mg daily (HFrEF, per last Cardiology note- probable CKD) Diuretic: Yes, 60mg IV lasix BID (GRAVE DIGGER 80mg furosemide daily) If pt has been compliant with diureticat home, torsemide should be considered for home going. Hydral/ISDN: N/A Management of Iron Deficiency in Heart Failure Patients LVEF < 50%: Yes Hemoglobin < 15 or < 13 in male /< 12 in female with CKD: Yes , 12.1 Ferritin (must be within the past 90 days): No Iron saturation (must be within the past 90 days): No Systemic infection suspected / present: No IV Venofer recommended: TBD HRIS ANALYST-D Appropriateness Screen (Referral pathway available on [facility] Heart Failure resource page) LVEF < 35%: Yes, pt will require LVEF reassessment after ~ 90 days of optimal GDMT +probable ischemic evaluation. Cardiac Rehab - N/A, uninsured Heart Failure Triggers for Consult to Palliative Care > 2 admissions in the last 12 months for ADHF: Yes [id number]* Care Coordination - Dia Gaitan RN - 04/28/2024 10:00 AM EDT HF booster pump oiler: Chart reviewed. Pt receiving treatment for acute on chronic HFrEF. Pt newly diagnosed with HFrEF in 02/2024 and has been unable to attend any follow up d/t lack of insurance coverage and inability to self pay. Since diagnosis, multiple unsuccessful attempts have beenmade by this RN to connect pt with SW in the [facility] and to confirm insurance status. - Spoke with pt this AM, MD was denied in Feb because pt did not include 6 pay stubs with application. - Updated HFS. HF action plan added to AVS. Recommendations (see below for screenings): - If no systemic infection suspected/confirmed, iron studies with IV Venofer if indicated per HF protocol. - Consult placed to SW as pt uninsured. - Transfer to 5W HF PCU under progressive care LOC if pt to transition from Obs to IP status. - Generic medications pending financial assistance/ Heart Failure Accreditation Quality Metrics All Clinical Practice Guidelines and references available on the [employer] Heart Failure resource page (Resources --> [facility] --> Heart Failure) Established Bending Shed Worker: None Follow up scheduled within 14 days: TBD- pending insurance/financial assistance. Recommend HF ISAAC. LVEF evaluation within the past 12 months: Yes NYHA class documentation by provider: Yes HF order set used: Yes Daily weight ordered:Yes Intake and output ordered: Yes HF education added: Yes HF care plan added: Yes Class 1 HFrEF GDMT (Treatment pathway available on [facility] Heart Failure resource page) LUCRECIA/ARB/ARNI: Yes, losartan 100mg daily BB: Yes, carvedilol 6.25mg BID MRA: Yes, spironolactone 25mg daily SGLT2-I: No- if financial assistance able to be obtained for follow up and medications, recommend dapagliflozin 10mg daily (HFrEF, per last Cardiology note- probable CKD) Diuretic: Yes, 60mg IV lasix BID (GRAVE DIGGER 80mg furosemide daily) If pt has been compliant with diureticat home, torsemide should be considered for home going. Hydral/ISDN: N/A Management of Iron Deficiency in Heart Failure Patients LVEF < 50%: Yes Hemoglobin < 15 or < 13 in male /< 12 in female with CKD: Yes , 12.1 Ferritin (must be within the past 90 days): No Iron saturation (must be within the past 90 days): No Systemic infection suspected / present: No IV Venofer recommended: TBD HRIS ANALYST-D Appropriateness Screen (Referral pathway available on [facility] Heart Failure resource page) LVEF < 35%: Yes, pt will require LVEF reassessment after ~ 90 days of optimal GDMT +probable ischemic evaluation. Cardiac Rehab - N/A, uninsured Heart Failure Triggers for Consult to Palliative Care > 2 admissions in the last 12 months for ADHF: Yes [id number] [facility]10-30-2024 Consult note* Rupesh Troy MD - 04/28/2024 8:42 AM EDTAssociated Order(s): IP CONSULT TO CARDIOLOGY [facility] [place] [facility] Cardiology /Electrophysiology Consult Note Reason for Consult/Chief Complaint: CHF Referring provider: Dr. 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 male with a PMH of recently diagnosed HFrEF, hypertension, and hyperlipidemia admitted for chest pain, shortness of breath and non-productive cough. Cardiology HF Team consulted for concern for acute decompensated HF. The patient was diagnosed with HFrEF during the 02/28/2024 admission, and had subsequent admission for HF exacerbation on 03/05/2024 during which his GDMT was further adjusted after being treated with IV lasix. Evaluation during this hospitalization thus far showed a positive D-dimer, normal [place]onin[place] [address] pg/mL. CTA was negative for PE, but positive for pulmonary vascular congestion and bilateral pleural effusions. ECG showedLVH and old ST depressions in inferior and lateral leads. Viral respiratory panel is negative for SARS-CoV-2, influenza A and B, and RSV; respiratory cultures are pending. Currently, patient states he had burning chest pain last night while laying in bed, which prompted the ED visit. Pain lasted a few hours. He states pain has decreased in intensity to a 3/10 with morphine and is currently intermittent, and non-radiating. He states chest pain is burning. Pain does not radiate and is not reproducible by palpation or exertion. He reports sick contacts at work. He states the cough and sore throat are slowly resolving. He denies any fever, chills, fatigue, shortness of breath, orthopnea, fatigue, edema, or decreased exercise tolerance. He never smoked, does not drink or use illicit drugs. He has not followed with cardiology outpatient--would like to establish near [place], [place]--and does not have PCP due to lack of health insurance and is currently in process of trying to enroll into Medicaid. Assessment/Plan HF NYHA Class [] I [x] II [] III [] IV []Unable to assess Heart failure with reduced ejection fraction Hypertension; uncontrolled - Echo from 02/29/2024 shows EF 30%, global hypokinesis, diastolic dysfunction, normal [place] [address] pg/mL (~9,000 during 02/2024 admission) and pleural effusions present are presenton CTA. Suspect etiology of his current decompensation and diagnosis of HFrEF is likely secondary to prolonged uncontrolled hypertension. - Jugular veins distended on physical exam. No edema, SOB, orthopnea, or PND. Plan: - Increase carvedilol carvedilol from 6.25 BID to 12.5 mg BID for better control of blood pressure. - Continue losartan 100 mg daily - Continue spironolactone 25 mg daily - While patient would benefit from clinical observation while being diuresed, he prefers to be discharged at this time. Therefore, would increase furosemide to 80 mg BID for the next two days, then continue 80 mg PO daily, thereafter - Establish with outpatient cardiology (near [place]). Social work following to help patient acquire health insurance. - Would benefit from completion of ischemic evaluation in the OP (see below) Chest pain - Do not suspect current chest pain to be cardiac in underlying etiology. Possible pleuritic component. - Normal troponin and old ST segment depressions on ECG - Recommend outpatient ischemic evaluation with either Cardiac Stress test or Coronary CTA, given his recently diagnosed HFrEF. Would also rule out other non- ischemic etiologies in the OP (as he doesnot have health insurance); normal TSH levels on 03/05/24 - Continue clopidogrel 75 mg Hyperlipidemia - Continue rosuvastatin 10 mg nightly Medications: carvedilol, 12.5 mg, Oral, BID WC clopidogrel, 75 mg, Oral, Daily furosemide, 60 mg, IntraVENous, BID [Held by provider] furosemide, 80 mg, Oral, Daily losartan, 100 mg, Oral, Daily rosuvastatin, 10 mg, Oral, Nightly spironolactone, 25 mg, Oral, Daily Infusion Medications: Physical Examination: Vitals: 04/28/24 0739 04/28/24 1010 04/28/24 1014 04/28/24 1029 BP: (!) 136/101 (!) 140/104 121/92 BP Location: Patient Position: Pulse: 114 120 110 106 Resp: 16 Temp: (!) 35.9 C (96.6 F) 36.6 C (97.9 F) TempSrc: Temporal Temporal SpO2: 97% 95% Weight: 191 lb 12.8 oz (87 kg) Height: Intake/Output Summary (Last 24 hours) at 04/28/2024 1509 Last data filed at 04/28/2024 1023 Gross per 24 hour Intake 1000 ml Output 600 ml Net 400 ml Wt Readings from Last 3 Encounters: 04/28/24 191 lb 12.8 oz (87 kg) 03/07/24 186 lb 6.4 oz (84.6 kg) 02/29/24 205 lb (93 kg) Physical Exam Constitutional: General: He is not in acute distress. Appearance: Normal appearance. He is not ill-appearing or toxic-appearing. Neck: Vascular: JVD present. Cardiovascular: Rate and Rhythm: Regular rhythm. Tachycardia present. Pulses: Normal pulses. Heart sounds: S1 normal and S2 normal. No murmur heard. Pulmonary: Effort: Pulmonary effort is normal. Breath sounds: Normal breath sounds and air entry. No wheezing, rhonchi or rales. Abdominal: General: Abdomen is flat. There is no distension. Palpations: Abdomen is soft. Tenderness: There is no abdominal tenderness. Musculoskeletal: Right lower leg: No edema. Left lower leg: No edema. Skin: General: Skin is warm and dry. Neurological: Mental Status: He is alert and oriented to person, place, and time. Psychiatric: Attention and Perception: Attention and perception normal. Judgment: Judgment normal. Laboratory Tests: Recent Labs 04/28/24 033 NA 140 K 4.2 CL 109* CO2 26 BUN 21* CREATININE 1.58* EGFR 54.3* Recent Labs 04/28/24 0331 04/28/24 0622 04/28/24 0959 TROPONINI 0.020 0.025 0.032 Recent Labs 04/28/24330 WBC 8.0 HGB 12.1* HCT 36.0* MCV 93.5 PLT 277 Lab Results Component Value Date HGBA1C 5.0 03/01/2024 Lab Results Component Value Date TSH 4.380 03/05/2024 Lab Results Component Value Date CHOL 172 02/29/2024 Lab Results Component Value Date HDL 28 (L) 02/29/2024 Lab Results Component Value Date LDLCALC 126 (H) 02/29/2024 Lab Results Component Value Date TRIG 88 02/29/2024 No results found for: CHOLHDL No results found for: LDLCHOLESTER Recent Labs 04/28/24330 BNP 10,500* No results for input(s): INR in the last 72 hours. No results found for: IRON, TIBC, FERRITIN Radiology: CXR: personally reviewed: Cardiac Tests Personally Reviewed: Last EKG 04/28/24 ECG 12-LEAD (Preliminary) This result has not been signed. Information might be incomplete. Impression Sinus tachycardia Probable left atrial enlargement Probable LVH with secondary repol abnrm Reports reviewed: Last Echo 02/28/24 TRANSTHORACIC ECHOCARDIOGRAM (TTE) COMPLETE (CONTRAST/BUBBLE/3D PRN) 02/29/2024 9:39 AM (Final) Interpretation Summary Left Ventricle: Left ventricle is mildly dilated. Mildly increased wall thickness. Mild septal thickening. Moderately reduced left ventricular systolic function. EF by 2D Simpsons Biplane is 30%. Global longitudinal strain is -7.1%. Severe global hypokinesis present. Grade II diastolic dysfunction with increased LAP. Right Ventricle: Right ventricle size is normal. Normal systolic function. TAPSE is 2.5 cm. Aortic Valve: No stenosis. AV mean gradient is 3 mmHg. AV peak velocity is 1.2 m/s. LVOT:AV VTI Index is 0.76. Mitral Valve: Moderate (2+) regurgitation. Tricuspid Valve: RVSP is 23 mmHg. Left Atrium: Left atrium is moderately dilated. LA Vol Index A/L is 42 mL/m2. Aorta: Normal sized sinuses of Valsalva and ascending aorta. Sinuses of Valsalva diameter is 3.2 cm. Ao ascending diameter is 3.3 cm. IVC/SVC: IVC diameter is normal and decreases greater than 50% during inspiration; therefore the estimated right atrial pressure is normal (~3 mmHg). Signed by: Radha Parikh on 02/29/2024 9:39 AM Last Cath No results found for this or any previous visit. Last Stress Test No results found for this or any previous visit. Last EP study No results found for this or any previous visit. EF BP Date Value Ref Range Status 02/29/2024 30 (A) 55 - 100 % Final AKILAH SCORE: 81 points (2%) AKILAH Score Link Dion Monge, Medical Student Sydni Goddard MD DATE of SERVICE: 04/28/2024 Patient independently examined and evaluated by resident physician. Agree with above history, physical examination, assessment, and plan with changes/additions made through out. Cosigned by Sergei Astudillo MD at 04/28/2024 4:05 PM EDT Associated attestation - Sergei Astudillo MD - 04/28/2024 4:05 PM EDT I, Dr. Sergei Astudillo, saw and evaluated the patient on 04/28/2024. I personally obtained the reardon and critical portions of the history and physical exam. I reviewed the chart, the resident's documentation, and discussed the patient with the resident. I agree with the resident's medical decision making and have edited the note to reflect my clinical findings and my assessment and plan. In summary, Carlo Medina is a 44-year-old man with a newly diagnosed history of heart failure with reduced ejection fraction, he has hypertension which appears to be poorly controlled. I suspect that this is the likely etiology of his cardiomyopathy and heart failure syndrome. He is uninsured andhas thus not been able to have proper follow-up. He presented initially with chest discomfort, he has had flat essentially negative troponins, no significant changes to his prior ECGs. His chest painby description is noncardiac. His NT proBNP significantly elevated and he was quite hypertensive onarrival and tachycardic. On physical exam he does appear to have neck vein elevation, certainly he has acute on chronic heart failure with reduced ejection fraction. He may or may not also have an upper respiratory viral infection, certainly this may have been a potential trigger. I discussed the patient's diagnosis with himself and his significant other, I discussed fluid restrictions, medication compliance, and following through with insurance/aide. -Recommend increasing his carvedilol to 12.5 mg twice daily -Would prefer him to be on torsemide 40 mg twice daily, however if torsemide not affordable he may continue to take furosemide 80 mg twice daily for the weekend I did offer the patient to stay overnight for ongoing IV diuresis, he opted for discharge which is reasonable given that he is hemodynamically stable Sergei Astudillo MD Department of Cardiovascular Disease, Division of Heart Failure [facility] [place] 4:05 PM 04/28/24 [facility] [place] [facility] Work Phone: [phone] 573-253010-30-2024 Plan of care note* Care Plan - Jillian Ferguson RN - 04/28/2024 8:20 AM EDT Problem: Pain - Adult Goal: Verbalizes/displays adequate comfort level or baseline comfort level Outcome: Progressing Problem: Safety - Adult Goal: Free from fall injury Outcome: Progressing Problem: Discharge Planning Goal: Discharge to home or other facility with appropriate resources Outcome: Progressing Problem: Chronic Conditions and Co-morbidities Goal: Patient's chronic conditions and co-morbidity symptoms are monitored and maintained or improved Outcome: Progressing The patient is Moderately Stable - Low risk of patient condition declining or worsening The patient's goals for the shift include Start finding out answers The clinical goals for the shift include Patient will remain hemodynamically stable this shift Over the shift, the patient did not make progress toward the following goals. Barriers to progression include none. Recommendations to address these barriers include n/a. [id number] Emergency department Note* Regina Hogan RN - 04/28/2024 6:[address] [facility] CDU. Hand off report given. [id number] Emergency department Note* Regina Hogan RN - 04/28/2024 6:[address] [facility] CDU. Hand off report given. * Regina Hogan RN - 04/28/2024 6:[address] [facility] ED. No answer. * Regina Hogan RN - 04/28/2024 6:33 AM EDT Patient signed transfer papers and instructions given to patient and significant other. Patient traveling by private vehicle. IV wrapped in coban. * Juan Carlos Le MD - 04/28/2024 2:35 AM EDT Images from the original note were not included. EMERGENCY DEPARTMENT ENCOUNTER Pt Name: Carlo Medina Birthdate 1980 Date of evaluation: 04/28/2024 ED Provider: Juan Carlos Le MD CHIEF COMPLAINT No chief complaint on file. HISTORY OF PRESENT ILLNESS (Location/Symptom, Timing/Onset, Context/Setting, Quality, Duration, Modifying Factors, Severity) Note limiting factors. I wore appropriate PPE for the entirety of this encounter. HPI Carlo Medina is a 44 y.o. who presents to the emergency department with chest pain and cough and sore throat Patient has a history of hypertension hypercholesterolemia. Family history of heart disease in the fourth decade, father of a heart attack. No personal history of actual atherosclerotic heart disease. He does have known LVH based on previous EKGs. Does not smoke does not vape does not use illicit drugs. He has been coughing for several weeks. He started getting midsternal chest pain at 2100 last night. Denies any hemoptysis. Chest pain does not radiate to the arm of the neck or to the jaw or the back. No nausea no diaphoresis no syncope no presyncope no lightheadedness. Patient does not have any leg swelling but patient endorses orthopnea. Patient endorses a sore throat starting yesterday. No stridor no trismus no drooling. Speaks in a normal tone of voice. Denies any fevers or chills. Multiple sick contacts at home and at work, but uncertain exactly what symptoms they have. No abdominal pain. No dysuria urgency frequency or hematuria. Afebrile, SaO2 100% on room air. No new numbness or weakness in the arms or legs, the radial and femoral pulses are equal, pain was not maximal at onset or abrupt, there is no ripping or tearing sensation, does not radiate to his back or his abdomen. No numbness or weakness or paresthesias in the arms or legs, no lightheadedness no vertigo. No family or friends at bedside. Nursing Notes were reviewed. Limitations to history: None Outside historians: None REVIEW OF SYSTEMS Review of Systems Pertinent positives and negatives as per HPI PAST MEDICAL HISTORY History reviewed. No pertinent past medical history. SURGICAL HISTORY History reviewed. No pertinent surgical history. CURRENT MEDICATIONS Previous Medications CARVEDILOL (COREG) 6.25 MG TABLET Take 1 tablet (6.25 mg) by mouth in the morning and 1 tablet (6.25 mg) in the evening. Take with meals. CLOPIDOGREL (PLAVIX) 75 MG TABLET Take 1 tablet (75 mg) by mouth daily. FUROSEMIDE (LASIX) 80 MG TABLET Take 1 tablet (80 mg) by mouth daily. LOSARTAN (COZAAR) 100 MG TABLET Take 1 tablet (100 mg) by mouth daily. ROSUVASTATIN (CRESTOR) 10 MG TABLET Take 1 tablet (10 mg) by mouth Nightly. SPIRONOLACTONE (ALDACTONE) 25 MG TABLET Take 1 tablet (25 mg) by mouth daily. ALLERGIES Patient has no known allergies. FAMILY HISTORY No family history on file. SOCIAL HISTORY Social History Socioeconomic History Marital status: Single Tobacco Use Smoking status: Never Smokeless tobacco: Never Vaping Use Vaping status: Never Used Substance and Sexual Activity Drug use: Never Social Drivers of Health Financial Resource Strain: Low Risk (02/28/2024) Overall Financial Resource Strain (CARDIA) Difficulty of Paying Living Expenses: Not very hard Food Insecurity: No Food Insecurity (02/28/2024) Hunger Vital Sign Worried About Running Out of Food in the Last Year: Never true Ran Out of Food in the Last Year: Never true Transportation Needs: No Transportation Needs (02/28/2024) PRAPARE - Transportation Lack of Transportation (Medical): No Lack of Transportation (Non-Medical): No Physical Activity: Sufficiently Active (02/28/2024) Exercise Vital Sign Days of Exercise per Week: 5 days Minutes of Exercise per Session: 30 min Stress: Stress Concern Present (02/28/2024) [employer] [place] [employer] - Occupational Stress Questionnaire Feeling of Stress : To some extent Social Connections: Unknown (02/28/2024) Social Connection and Isolation Panel [NHANES] Frequency of Communication with Friends and Family: Once a week Frequency of Social Gatherings with Friends and Family: Once a week Attends Holiness Services: Patient unable to answer Active Member of Clubs or Organizations: No Attends Club or Organization Meetings: Never Marital Status: Living with partner Intimate Partner Violence: Not At Risk (03/06/2024) Humiliation, Afraid, Rape, and Kick questionnaire Fear of Current or Ex-Partner: No Emotionally Abused: No Physically Abused: No Sexually Abused: No Housing Stability: Low Risk (02/28/2024) Housing Stability Vital Sign Unable to Pay for Housing in the Last Year: No Number of Times Moved in the Last Year: 0 Homeless in the Last Year: No PHYSICAL EXAM ED Triage Vitals [04/28/24 0239] Temp Heart Rate Resp BP 36.4 C (97.5 F) 96 18 (!) 130/102 SpO2 Temp Source Heart Rate Source Patient Position 100 % Oral Monitor Sitting BP Location FiO2 (%) Right arm -- Physical Exam General: WDWN adult in NAD. Appears under the weather but nontoxic HENT: Head NCAT, EOMI with no erythema, swelling or discharge. TMs normal bilaterally Oropharyngeal mucus membranes moist, mildly erythematous, no white exudate. No retropharyngeal or peritonsillar abscesses Neck: Full ROM, supple, no rigidity. No stridor no trismus no drooling. Speaks in a normal tone of voice. Cardio: Heart rate upper limit of normal, nl s1 s2 no m/r/g, extremities warm, dry, well perfused, non-edematous, 2+ bilateral radial pulses, 2+ bilateral carotid pulses, 2+ bilateral femoral pulses,2+ bilateral DP pulses Lungs: Bibasilar crackles present, right greater than left. Bilateral middle lobes are comparatively clear. Bilateral upper lobes are comparatively clear. No wheezes no rales. Intermittent junky cough. No cyanosis no retractions. SaO2 100% on room air. 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 2. Cardiomegaly with pulmonary vascular congestion and trace bilateral pleural effusions with mild atelectatic changes right lung base Report Dictated on Electronically Signed By: Jose Raul Petersen MD Electronically Signed Date/Time: 04/28/2024 5:28 AM EDT XR chest 2 views Final Result LABS: Labs Reviewed CBC WITH AUTO DIFFERENTIAL - Abnormal Result Value Auto WBC 8.0 RBC 3.85 (*) Hemoglobin 12.1 (*) Hematocrit 36.0 (*) MCV 93.5 MCH 31.4 MCHC 33.6 RDW 12.0 Platelets 277 MPV 9.0 nRBC 0.0 Neutrophils Relative 72.1 Lymphocytes Relative 19.5 Monocytes Relative 7.6 Eosinophils Relative 0.6 Basophils Relative 0.2 Immature Grans % 0.0 Neutrophils Absolute 5.8 Lymphocytes Absolute 1.6 Monocytes Absolute 0.6 Eosinophils Absolute 0.1 Basophils Absolute 0.0 Immature Grans Absolute 0.0 BASIC METABOLIC PANEL - Abnormal SODIUM 140 POTASSIUM 4.2 CHLORIDE 109 (*) CARBON DIOXIDE 26 UREA NITROGEN 21 (*) CREATININE 1.58 (*) GLUCOSE 128 (*) CALCIUM 9.0 ANION GAP 5 eGFR 54.3 (*) NT PRO BNP - Abnormal NT PRO BNP 10,500 (*) D-DIMER,QUANTITATIVE - Abnormal D-DIMER, INNOVANCE 1.97 (*) Narrative: [employer] D-Dimer values of <0.50 mg/L FEU can be used in combination with a pre-test probability model (e.g. Well's) to exclude pulmonary embolism (PE) disease, as well as an aid in the diagnosisof deep vein thrombosis (DVT). SARS-COV-2, FLU A/B, AND RSV COMBO - Normal SARS-CoV-2 Not Detected Respiratory Syncytial Virus Not Detected Influenza A Not Detected Influenza B Not Detected Narrative: Methodology: real-time, RT-PCR The SARS-CoV-2, Flu A/B, and RSV Combo assay is intended for in vitro diagnostic use under the FDA Emergency Use Authorization (EUA). This test has not been FDA cleared or approved. In compliance with this authorization, please visit www.fda.gov/media/642537/download or www.fda.gov/media/602536/download to access the applicable information sheets. GROUP A STREP SCREEN BY PCR - Normal Group A Strep Screen Not Detected Narrative: Methodology: real-time PCR TROPONIN, WITH SERIAL REFLEX - Normal TROPONIN I 0.020 Narrative: Patients with high levels of Biotin oral intake (ie >5 mg/day) may have falsely decreased Troponin levels. TROPONIN I, HIGH SENSITIVITY All other labs were within normal range or not returned as of this dictation. EMERGENCY DEPARTMENT COURSE and DIFFERENTIAL DIAGNOSIS/MDM: Vitals: Vitals: 04/28/24 0239 04/28/24 0543 04/28/24 0545 BP: (!) 130/102 (!) 159/114 BP Location: Right arm Left arm Patient Position: Sitting Sitting Pulse: 96 (!) 111 (!) 114 Resp: 18 (!) 28 24 Temp: 36.4 C (97.5 F) TempSrc: Oral SpO2: 100% 100% Weight: 82.1 kg (181 lb) Height: 1.854 m (6' 1) Medications aspirin chewable tablet 324 mg (324 mg Oral Given 04/28/24 033) morphine injection 4 mg (4 mg IntraVENous Given 04/28/24 0331) ondansetron (Zofran) injection 4 mg (4 mg IntraVENous Given 04/28/24 0333) sodium chloride 0.9 % bolus 1,000 mL (0 mL IntraVENous Stopped 04/28/24 0535) ketorolac (Toradol) injection 15 mg (15 mg IntraVENous Given 04/28/242) furosemide (Lasix) injection 60 mg (60 mg IntraVENous Given 04/28/24 0549) morphine injection 4 mg (4 mg IntraVENous Given 04/28/24 0548) SCREENINGS HEART Score History: Slightly suspicious ECG: Non-specific repolarization disturbance Age: 45-64 Risk Factors: >2 risk factors or hx of atherosclerotic disease Troponin: Less than or equal to normal limit HEART Score: 4 44-year-old male presents with chest pain sore throat cough, family history of heart disease but nopersonal history of heart disease MDM elements: The patient presented with chief complaint of see above. The differential diagnosis associated with this patient's presentation includes the combination of the sore throat and the cough and the nasal congestion are suggestive of an upper respiratory infection or bronchitis. The unilateral right lower lobe crackles are suggestive of pneumonia. Patient does have a family history of heart disease and a personal history of hyperlipidemia and hypertension, so he has a HEART score of 4 - his EKG is completely unchanged. Congestive heart failure is also a possibility given his dyspnea and orthopnea and family history of early heart disease, this could be causing chest pain and shortness of breath. I considered the possibility of a pulmonary embolism, hehas a Wells score of 0 and he has a PERC criteria of 0. Therefore given a negative D-dimer the oddsof him having a PE are less than 2%. I also considered the possibility of a thoracic aortic dissection. He has no new neurological deficits, the radial and femoral pulses are equal, pain was not maximal at onset or abrupt, there is no ripping or tearing sensation that does not radiate to the back of the abdomen. This gives him a [facility] thoracic aortic dissection screening score of 0 even without anegative chest x-ray. Therefore the odds of thoracic aorta dissection are less than 06/999 so a TADS appears clinically unlikely. Our workup consisted of ordering/reviewing: Chest x-ray, D-dimer, COVID-19 RSV influenza and strep testing. Aspirin in case of occult ACS. If the D-dimer is positive, we will get a CTA chest to rule out PE versus pneumonia versus CHF. To aid in management, I performed an independent interpretation of Xray(s) see below EKG; see my interpretation elsewhere in the chart Blood work, see below. I also reviewed external records from past medical records in [place] [facility] to obtain collateral history. The patient will be disposition depends on results of workup. Patient is in agreement with this plan. Patient's care was impacted by hyperlipidemia hypertension family history heart disease. Patient's care was significantly impacted by social determinants of health including multiple sick contacts. MEDICAL DECISION MAKING: I considered, but did not perform, additional testing such as head or chest CT angiogram, VQ scan, or echocardiogram, as well as admission or transfer to a higher level of care. I utilized an evidence-based risk rating tool (CMT) along with my training and experience to weigh the risk of discharge against the risks of further testing, imaging, or hospitalization. At this time, I estimate the risks of additional testing, imaging, or hospitalization (in the case of discharge) to be equal to or greater than the risk of discharge. [id number] SHARED DECISION MAKING: I discussed my risk assessment with the patient. The patient understands and consents to the risk of disposition/plan, as well as the risk of uncertainty in estimating outcomes. [id number] PROCEDURES: Unless otherwise noted below, none Procedures EKG: I read and interpreted this EKG. My interpretation can be found in the [employer] EKG system. EKG shows NSR, LAD, normal IN QRS and QTC intervals. LVH. ST depressions in I, AVL, II, III, AVF, V3-V6. No STEMI. No SVT. Previous EKG is unchanged. All ST segment changes are old. Metabolic panel shows no metabolic acidosis, suboptimal kidney function with a creatinine of 1.58, actually slightly improved from previous. Sodium and potassium are normal. Calcium normal. Glucose minimally elevated at 128 Troponin within normal limits at 0.020 [place] [address]. This is higher than the patient's other values which have also been high for his age. BNP is gradually increasing with time Normal white blood cell count Mild anemia with hemoglobin of 12.1 Normal platelet count Strep test negative COVID-19 RSV influenza all negative D-dimer elevated Chest x-ray shows cardiomegaly and pulmonary vascular prominence with atelectatic changes in the lung bases right greater than left. Interpreted by radiology and by me. CTA chest was ordered to rule out PE given positive D-dimer. CTA chest shows no PE but does show cardiomegaly with pulmonary vascular congestion and trace bilateral pleural effusions and mild atelectatic changes in the right lung base. This may be why the patient has lateral crackles on the right than the left. When I discussed this with the patient, patient says that he has been doing his best to cut out as much salt out of his diet as possible and he has been taking his medications for the fluid overload faithfully, but it does not seem to be working. Patient does not require noninvasive positive pressure ventilation or endotracheal intubation, patient has a resting heart rate in the 110s and a respiratory rate of 20 to 24 breaths/min. His SaO2 is 100% on room air, he is not in respiratory distress but he definitely requires diuresis and would benefit from an echocardiogram and a cardiology consultation. Given his persistent tachypnea persistent tachycardia in the presence of the pulmonary vascular congestion, he cannot be discharged. He must be admitted for further diagnostics and care. This was explained to patient and his significant other in great detail by me and they indicated understanding and agreement. CDU consulted for admission CDU accepted patient to their service Disposition: Admitted Critical Care Attestation: The patient required critical care because the patient suffered congestive heart failure/pulmonary vascular congestion with chest pain shortness of breath tachycardia. Critical care provided to the patient included: Lab review, multiple reassessments of patient, working with consultants, diuresing p atient/treating CHF, updating and educating patient and family, documentation time. Critical care time does not include any procedures performed. I personally saw the patient and independently provided 40 minutes of non-concurrent critical care. CRITICAL CARE TIME FINAL IMPRESSION 1. Pulmonary vascular congestion 2. Chest pain, unspecified type 3. Acute cough 4. Sore throat 5. Positive D dimer 6. Congestive heart failure, unspecified HF chronicity, unspecified heart failure type (HCC) 7. Orthopnea 8. Short of breath on exertion DISPOSITION Admit 04/28/2024 04:53:27 AM PATIENT REFERRED TO: No follow-up provider specified. DISCHARGE MEDICATIONS: New Prescriptions No medications on file (Comment: Please note this report has been produced using speech recognition software and may contain errors related to that system including errors in grammar, punctuation, and spelling, as well as words and phrases that may be inappropriate. If there are any questions or concerns please feel freeto contact the dictating provider for clarification.) Juan Carlos Le MD (electronically signed) Emergency Medicine Provider Juan Carlos Le MD 04/28/24 0553 * Regina Hogan RN - 04/28/2024 2:35 AM EDT Patient arrived ambulatory to room 2 with complaints of mid-sternal chest pain and SOB that startedat 2100 yesterday. Pain 10/10 and feels like pressure. Patient states he has had a non-productive cough for a couple weeks. Patient started with a sore throat yesterday also. Respirations even and unlabored. Patient A&O x4. EKG, IV and labs done upon arrival. Patient placed on bundle wrapper. documented in this [facility]10-30-2024 Emergency department Note* Regina Hogan RN - 04/28/2024 6:[address] [facility] ED. [facility] answer. [id number]* Regina Hogan RN - 04/28/2024 6:33 AM EDT Patient signed transfer papers and instructions given to patient and significant other. Patient traveling by private vehicle. IV wrapped in coban. [id number] Triage note* Regina Hogan RN - 04/28/2024 2:35 AM EDT Patient arrived ambulatory to room 2 with complaints of mid-sternal chest pain and SOB that startedat 2100 yesterday. Pain 10/10 and feels like pressure. Patient states he has had a non-productive cough for a couple weeks. Patient started with a sore throat yesterday also. Respirations even and unlabored. Patient A&O x4. EKG, IV and labs done upon arrival. Patient placed on bundle wrapper. [id number] Emergency [facility] Note* Juan Carlos Le MD - 04/28/2024 2:35 AM EDT Images from the original note were not included. EMERGENCY DEPARTMENT ENCOUNTER Pt Name: Carlo Medina Birthdate 1980 Date of evaluation: 04/28/2024 ED Provider: Juan Carlos Le MD CHIEF COMPLAINT No chief complaint on file. HISTORY OF PRESENT ILLNESS (Location/Symptom, Timing/Onset, Context/Setting, Quality, Duration, Modifying Factors, Severity) Note limiting factors. I wore appropriate PPE for the entirety of this encounter. HPI Carlo Medina is a 44 y.o. who presents to the emergency department with chest pain and cough and sore throat Patient has a history of hypertension hypercholesterolemia. Family history of heart disease in the fourth decade, father of a heart attack. No personal history of actual atherosclerotic heart disease. He does have known LVH based on previous EKGs. Does not smoke does not vape does not use illicit drugs. He has been coughing for several weeks. He started getting midsternal chest pain at 2100 last night. Denies any hemoptysis. Chest pain does not radiate to the arm of the neck or to the jaw or the back. No nausea no diaphoresis no syncope no presyncope no lightheadedness. Patient does not have any leg swelling but patient endorses orthopnea. Patient endorses a sore throat starting yesterday. No stridor no trismus no drooling. Speaks in a normal tone of voice. Denies any fevers or chills. Multiple sick contacts at home and at work, but uncertain exactly what symptoms they have. No abdominal pain. No dysuria urgency frequency or hematuria. Afebrile, SaO2 100% on room air. No new numbness or weakness in the arms or legs, the radial and femoral pulses are equal, pain was not maximal at onset or abrupt, there is no ripping or tearing sensation, does not radiate to his back or his abdomen. No numbness or weakness or paresthesias in the arms or legs, no lightheadedness no vertigo. No family or friends at bedside. Nursing Notes were reviewed. Limitations to history: None Outside historians: None REVIEW OF SYSTEMS Review of Systems Pertinent positives and negatives as per HPI PAST MEDICAL HISTORY History reviewed. No pertinent past medical history. SURGICAL HISTORY History reviewed. No pertinent surgical history. CURRENT MEDICATIONS Previous Medications CARVEDILOL (COREG) 6.25 MG TABLET Take 1 tablet (6.25 mg) by mouth in the morning and 1 tablet (6.25 mg) in the evening. Take with meals. CLOPIDOGREL (PLAVIX) 75 MG TABLET Take 1 tablet (75 mg) by mouth daily. FUROSEMIDE (LASIX) 80 MG TABLET Take 1 tablet (80 mg) by mouth daily. LOSARTAN (COZAAR) 100 MG TABLET Take 1 tablet (100 mg) by mouth daily. ROSUVASTATIN (CRESTOR) 10 MG TABLET Take 1 tablet (10 mg) by mouth Nightly. SPIRONOLACTONE (ALDACTONE) 25 MG TABLET Take 1 tablet (25 mg) by mouth daily. ALLERGIES Patient has no known allergies. FAMILY HISTORY No family history on file. SOCIAL HISTORY Social History Socioeconomic History Marital status: Single Tobacco Use Smoking status: Never Smokeless tobacco: Never Vaping Use Vaping status: Never Used Substance and Sexual Activity Drug use: Never Social Drivers of Health Financial Resource Strain: Low Risk (02/28/2024) Overall Financial Resource Strain (CARDIA) Difficulty of Paying Living Expenses: Not very hard Food Insecurity: No Food Insecurity (02/28/2024) Hunger Vital Sign Worried About Running Out of Food in the Last Year: Never true Ran Out of Food in the Last Year: Never true Transportation Needs: No Transportation Needs (02/28/2024) PRAPARE - Transportation Lack of Transportation (Medical): No Lack of Transportation (Non-Medical): No Physical Activity: Sufficiently Active (02/28/2024) Exercise Vital Sign Days of Exercise per Week: 5 days Minutes of Exercise per Session: 30 min Stress: Stress Concern Present (02/28/2024) [employer] [place] [place] [employer] - Occupational Stress Questionnaire Feeling of Stress : To some extent Social Connections: Unknown (02/28/2024) Social Connection and Isolation Panel [NHANES] Frequency of Communication with Friends and Family: Once a week Frequency of Social Gatherings with Friends and Family: Once a week Attends Holiness Services: Patient unable to answer Active Member of Clubs or Organizations: No Attends Club or Organization Meetings: Never Marital Status: Living with partner Intimate Partner Violence: Not At Risk (03/06/2024) Humiliation, Afraid, Rape, and Kick questionnaire Fear of Current or Ex-Partner: No Emotionally Abused: No Physically Abused: No Sexually Abused: No Housing Stability: Low Risk (02/28/2024) Housing Stability Vital Sign Unable to Pay for Housing in the Last Year: No Number of Times Moved in the Last Year: 0 Homeless in the Last Year: No PHYSICAL EXAM ED Triage Vitals [04/28/24 0239] Temp Heart Rate Resp BP 36.4 C (97.5 F) 96 18 (!) 130/102 SpO2 Temp Source Heart Rate Source Patient Position 100 % Oral Monitor Sitting BP Location FiO2 (%) Right arm -- Physical Exam General: WDWN adult in NAD. Appears under the weather but nontoxic HENT: Head NCAT, EOMI with no erythema, swelling or discharge. TMs normal bilaterally Oropharyngeal mucus membranes moist, mildly erythematous, no white exudate. No retropharyngeal or peritonsillar abscesses Neck: Full ROM, supple, no rigidity. No stridor no trismus no drooling. Speaks in a normal tone of voice. Cardio: Heart rate upper limit of normal, nl s1 s2 no m/r/g, extremities warm, dry, well perfused, non-edematous, 2+ bilateral radial pulses, 2+ bilateral carotid pulses, 2+ bilateral femoral pulses,2+ bilateral DP pulses Lungs: Bibasilar crackles present, right greater than left. Bilateral middle lobes are comparatively clear. Bilateral upper lobes are comparatively clear. No wheezes no rales. Intermittent junky cough. No cyanosis no retractions. SaO2 100% on room air. 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 2. Cardiomegaly with pulmonary vascular congestion and trace bilateral pleural effusions with mild atelectatic changes right lung base Report Dictated on Electronically Signed By: Jose Raul Petersen MD Electronically Signed Date/Time: 04/28/2024 5:28 AM EDT XR chest 2 views Final Result LABS: Labs Reviewed CBC WITH AUTO DIFFERENTIAL - Abnormal Result Value Auto WBC 8.0 RBC 3.85 (*) Hemoglobin 12.1 (*) Hematocrit 36.0 (*) MCV 93.5 MCH 31.4 MCHC 33.6 RDW 12.0 Platelets 277 MPV 9.0 nRBC 0.0 Neutrophils Relative 72.1 Lymphocytes Relative 19.5 Monocytes Relative 7.6 Eosinophils Relative 0.6 Basophils Relative 0.2 Immature Grans % 0.0 Neutrophils Absolute 5.8 Lymphocytes Absolute 1.6 Monocytes Absolute 0.6 Eosinophils Absolute 0.1 Basophils Absolute 0.0 Immature Grans Absolute 0.0 BASIC METABOLIC PANEL - Abnormal SODIUM 140 POTASSIUM 4.2 CHLORIDE 109 (*) CARBON DIOXIDE 26 UREA NITROGEN 21 (*) CREATININE 1.58 (*) GLUCOSE 128 (*) CALCIUM 9.0 ANION GAP 5 eGFR 54.3 (*) NT PRO BNP - Abnormal NT PRO BNP 10,500 (*) D-DIMER,QUANTITATIVE - Abnormal D-DIMER, INNOVANCE 1.97 (*) Narrative: [employer] D-Dimer values of <0.50 mg/L FEU can be used in combination with a pre-test probability model (e.g. Well's) to exclude pulmonary embolism (PE) disease, as well as an aid in the diagnosisof deep vein thrombosis (DVT). SARS-COV-2, FLU A/B, AND RSV COMBO - Normal SARS-CoV-2 Not Detected Respiratory Syncytial Virus Not Detected Influenza A Not Detected Influenza B Not Detected Narrative: Methodology: real-time, RT-PCR The SARS-CoV-2, Flu A/B, and RSV Combo assay is intended for in vitro diagnostic use under the FDA Emergency Use Authorization (EUA). This test has not been FDA cleared or approved. In compliance with this authorization, please visit www.fda.gov/media/829655/download or www.fda.gov/media/456747/download to access the applicable information sheets. GROUP A STREP SCREEN BY PCR - Normal Group A Strep Screen Not Detected Narrative: Methodology: real-time PCR TROPONIN, WITH SERIAL REFLEX - Normal TROPONIN I 0.020 Narrative: Patients with high levels of Biotin oral intake (ie >5 mg/day) may have falsely decreased Troponin levels. TROPONIN I, HIGH SENSITIVITY All other labs were within normal range or not returned as of this dictation. EMERGENCY DEPARTMENT COURSE and DIFFERENTIAL DIAGNOSIS/MDM: Vitals: Vitals: 04/28/24 0239 04/28/24 0543 04/28/24 0545 BP: (!) 130/102 (!) 159/114 BP Location: Right arm Left arm Patient Position: Sitting Sitting Pulse: 96 (!) 111 (!) 114 Resp: 18 (!) 28 24 Temp: 36.4 C (97.5 F) TempSrc: Oral SpO2: 100% 100% Weight: 82.1 kg (181 lb) Height: 1.854 m (6' 1) Medications aspirin chewable tablet 324 mg (324 mg Oral Given 04/28/24331) morphine injection 4 mg (4 mg IntraVENous Given 04/28/24330) ondansetron (Zofran) injection 4 mg (4 mg IntraVENous Given 04/28/24332) sodium chloride 0.9 % bolus 1,000 mL (0 mL IntraVENous Stopped 04/28/24534) ketorolac (Toradol) injection 15 mg (15 mg IntraVENous Given 04/28/24331) furosemide (Lasix) injection 60 mg (60 mg IntraVENous Given 04/28/24548) morphine injection 4 mg (4 mg IntraVENous Given 04/28/24547) SCREENINGS HEART Score History: Slightly suspicious ECG: Non-specific repolarization disturbance Age: 45-64 Risk Factors: >2 risk factors or hx of atherosclerotic disease Troponin: Less than or equal to normal limit HEART Score: 4 44-year-old male presents with chest pain sore throat cough, family history of heart disease but nopersonal history of heart disease MDM elements: The patient presented with chief complaint of see above. The differential diagnosis associated with this patient's presentation includes the combination of the sore throat and the cough and the nasal congestion are suggestive of an upper respiratory infection or bronchitis. The unilateral right lower lobe crackles are suggestive of pneumonia. Patient does have a family history of heart disease and a personal history of hyperlipidemia and hypertension, so he has a HEART score of 4 - his EKG is completely unchanged. Congestive heart failure is also a possibility given his dyspnea and orthopnea and family history of early heart disease, this could be causing chest pain and shortness of breath. I considered the possibility of a pulmonary embolism, hehas a Wells score of 0 and he has a PERC criteria of 0. Therefore given a negative D-dimer the oddsof him having a PE are less than 2%. I also considered the possibility of a thoracic aortic dissection. He has no new neurological deficits, the radial and femoral pulses are equal, pain was not maximal at onset or abrupt, there is no ripping or tearing sensation that does not radiate to the back of the abdomen. This gives him a [facility] thoracic aortic dissection screening score of 0 even without anegative chest x-ray. Therefore the odds of thoracic aorta dissection are less than 06/999 so a TADS appears clinically unlikely. Our workup consisted of ordering/reviewing: Chest x-ray, D-dimer, COVID-19 RSV influenza and strep testing. Aspirin in case of occult ACS. If the D-dimer is positive, we will get a CTA chest to rule out PE versus pneumonia versus CHF. To aid in management, I performed an independent interpretation of Xray(s) see below EKG; see my interpretation elsewhere in the chart Blood work, see below. I also reviewed external records from past medical records in [facility] to obtain collateral history. The patient will be disposition depends on results of workup. Patient is in agreement with this plan. Patient's care was impacted by hyperlipidemia hypertension family history heart disease. Patient's care was significantly impacted by social determinants of health including multiple sick contacts. MEDICAL DECISION MAKING: I considered, but did not perform, additional testing such as head or chest CT angiogram, VQ scan, or echocardiogram, as well as admission or transfer to a higher level of care. I utilized an evidence-based risk rating tool (CMT) along with my training and experience to weigh the risk of discharge against the risks of further testing, imaging, or hospitalization. At this time, I estimate the risks of additional testing, imaging, or hospitalization (in the case of discharge) to be equal to or greater than the risk of discharge. [id number] SHARED DECISION MAKING: I discussed my risk assessment with the patient. The patient understands and consents to the risk of disposition/plan, as well as the risk of uncertainty in estimating outcomes. [id number] PROCEDURES: Unless otherwise noted below, none Procedures EKG: I read and interpreted this EKG. My interpretation can be found in the [employer] EKG system. EKG shows NSR, LAD, normal IN QRS and QTC intervals. LVH. ST depressions in I, AVL, II, III, AVF, V3-V6. No STEMI. No SVT. Previous EKG is unchanged. All ST segment changes are old. Metabolic panel shows no metabolic acidosis, suboptimal kidney function with a creatinine of 1.58, actually slightly improved from previous. Sodium and potassium are normal. Calcium normal. Glucose minimally elevated at 128 Troponin within normal limits at 0.020 [place] [address]. This is higher than the patient's other values which have also been high for his age. BNP is gradually increasing with time Normal white blood cell count Mild anemia with hemoglobin of 12.1 Normal platelet count Strep test negative COVID-19 RSV influenza all negative D-dimer elevated Chest x-ray shows cardiomegaly and pulmonary vascular prominence with atelectatic changes in the lung bases right greater than left. Interpreted by radiology and by me. CTA chest was ordered to rule out PE given positive D-dimer. CTA chest shows no PE but does show cardiomegaly with pulmonary vascular congestion and trace bilateral pleural effusions and mild atelectatic changes in the right lung base. This may be why the patient has lateral crackles on the right than the left. When I discussed this with the patient, patient says that he has been doing his best to cut out as much salt out of his diet as possible and he has been taking his medications for the fluid overload faithfully, but it does not seem to be working. Patient does not require noninvasive positive pressure ventilation or endotracheal intubation, patient has a resting heart rate in the 110s and a respiratory rate of 20 to 24 breaths/min. His SaO2 is 100% on room air, he is not in respiratory distress but he definitely requires diuresis and would benefit from an echocardiogram and a cardiology consultation. Given his persistent tachypnea persistent tachycardia in the presence of the pulmonary vascular congestion, he cannot be discharged. He must be admitted for further diagnostics and care. This was explained to patient and his significant other in great detail by me and they indicated understanding and agreement. CDU consulted for admission CDU accepted patient to their service Disposition: Admitted Critical Care Attestation: The patient required critical care because the patient suffered congestive heart failure/pulmonary vascular congestion with chest pain shortness of breath tachycardia. Critical care provided to the patient included: Lab review, multiple reassessments of patient, working with consultants, diuresing p atient/treating CHF, updating and educating patient and family, documentation time. Critical care time does not include any procedures performed. I personally saw the patient and independently provided 40 minutes of non-concurrent critical care. CRITICAL CARE TIME FINAL IMPRESSION 1. Pulmonary vascular congestion 2. Chest pain, unspecified type 3. Acute cough 4. Sore throat 5. Positive D dimer 6. Congestive heart failure, unspecified HF chronicity, unspecified heart failure type (HCC) 7. Orthopnea 8. Short of breath on exertion DISPOSITION Admit 04/28/2024 04:53:27 AM PATIENT REFERRED TO: No follow-up provider specified. DISCHARGE MEDICATIONS: New Prescriptions No medications on file (Comment: Please note this report has been produced using speech recognition software and may contain errors related to that system including errors in grammar, punctuation, and spelling, as well as words and phrases that may be inappropriate. 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 Pt with a new diagnosis of HFrEF in 02/2024 and has not been able to follow up with Cardiology d/t lack of insurance and inability to self-payfor appt. Per pt report, MD application was filled out mid-February. HFN attempted previously to get pt an appt with the [facility] to work with SW and pt declined. Left HIPAA compliant VM requesting a return call to discuss. 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 Pt with a new diagnosis of HFrEF in 02/2024 and has not been able to follow up with Cardiology d/t lack of insurance and inability to self-payfor appt. Per pt report, MD application was filled out mid-February. HFN attempted previously to get pt an appt with the [facility] to work with SW and pt declined. Left HIPAA compliant VM requesting a return call to discuss. documented in this [facility]10-16-2024 Telephone encounter Note* Telephone Encounter - Sangeeta Sandhu - 04/14/2024 9:30 AM EDT LMOM requesting return call, gave [facility] phone number also [place] [id number] Miscellaneous Notes* Telephone Encounter - Sangeeta Sandhu - 04/14/2024 9:30 AM EDT LMOM requesting return call, gave [facility] phone number also * Telephone Encounter - Sangeeta Sandhu - 03/31/2024 9:23 AM EDT Lmom return call, if no insurance yet may be seen at [facility] with Dr Conklin. Will give number [phone] if needed * Telephone Encounter - Jeffrey Conklin MD - 03/16/2024 10:58 AM EDT Will call back documented in this [facility]10-02-2024 Telephone encounter Note* Telephone Encounter - Sangeeta Sandhu - 03/31/2024 9:23 AM EDT Lmom return call, if no insurance yet may be seen at [facility] with Dr Conklin. Will give number [phone] if needed [place] [id number] Miscellaneous Notes* Telephone Encounter - Sangeeta Sandhu - 03/31/2024 9:23 AM EDT Lmom return call, if no insurance yet may be seen at [facility] with Dr Conklin. Will give number [phone] if needed * Telephone Encounter - Jeffrey Conklin MD - 03/16/2024 10:58 AM EDT Will call back documented in this [facility]09-17-2024 Telephone encounter Note* Telephone Encounter - Jeffrey Conklin MD - 03/16/2024 10:58 AM EDT Will call back [facility] Phone: [phone] Miscellaneous Notes* Telephone Encounter - Jeffrey Conklin MD - 03/16/2024 10:58 AM EDT Will call back documented in this [facility]09-09-2024 Telephone encounter Note* Telephone Encounter - YAZAN Danielle - 03/08/2024 2:40 PM EDT [facility] NICKY reached out to schedule Hospital Follow up appointment. [facility] NICKY offered assistance with financial assistance program until his Medicaid was active. Pt declined, stating he wants to wait untilhis Medicaid is active before scheduling a follow up. [place] [id number] Miscellaneous Notes* Telephone Encounter - YAZAN Danielle - 03/08/2024 2:40 PM EDT [facility] NICKY reached out to schedule Hospital Follow up appointment. [facility] SWK offered assistance with financial assistance program until his Medicaid was active. Pt declined, stating he wants to wait untilhis Medicaid is active before scheduling a follow up. * Telephone Encounter - Dia Gaitan RN - 03/08/2024 11:06 AM EDT booster pump oiler: Noted pt re-admitted 03/05-03/07 for ADHF. Call to pt this AM to discuss insurance coverage- was notified by [facility] office that when attempting to schedule, pt reported being self pay. Appt was not able to be scheduled. At time of this phone call, pt in the car on the way to [employer] to see if currently does have active Medicaid, and if not, to complete application. Pt to return call to [facility] with update. 13:25: Call back from pt- no current Medicaid coverage, application submitted today. Pt is unable to pay out of pocket for visit with Mona Marcano NP with Cardiology on 03/11- [facility] cancelled appt. Pt also has no PCP. Pt ok with chart being forwarded to [facility] to schedule and appt to establishcare and for SW to review. If able, pt should be seen within 14 days of hospital discharge in the [facility]. Once insurance obtained, pt should be scheduled in the [facility]. documented in this [facility]09-09-2024 Telephone encounter Note* Telephone Encounter - Dia Gaitan RN - 03/08/2024 11:06 AM EDT booster pump oiler: Noted pt re-admitted 03/05-03/07 for ADHF. Call to pt this AM to discuss insurance coverage- was notified by [facility] office that when attempting to schedule, pt reported being self pay. Appt was not able to be scheduled. At time of this phone call, pt in the car on the way to [employer] to see if currently does have active Medicaid, and if not, to complete application. Pt to return call to [facility] with update. 13:25: Call back from pt- no current Medicaid coverage, application submitted today. Pt is unable to pay out of pocket for visit with Mona Marcano NP with Cardiology on 03/11- [facility] cancelled appt. Pt also has no PCP. Pt ok with chart being forwarded to [facility] to schedule and appt to establishcare and for SW to review. If able, pt should be seen within 14 days of hospital discharge in the [facility]. Once insurance obtained, pt should be scheduled in the [facility]. [id number] Hospital Discharge instructions* Discharge Instr - Activity* Ruby Powers RN - 03/07/2024 1:26 PM EDT As tolerated * Discharge Instr - Diet* Ruby Powers RN - 03/07/2024 1:26 PM EDT Healthy diet * Discharge Instr - ROBERT* Ruby Powers RN - 03/07/2024 1:26 PM EDT Images from the original note were not included. Continuity of Care Form Patient Name: Carlo Medina : 1980 Admit date: 03/05/2024 Discharge date: Code Status Order: Full Code Advance Directives: N Admitting Physician: Helder Pozo MD PCP: No primary care provider on file. Discharging Nurse: Discharging Hospital Unit/Room#: B2-247/B2-247 A Discharging Unit Phone Number: Emergency Contact: Extended Emergency Contact Information Primary Emergency Contact: Indira Medina Mobile Relation: Sister Secondary Emergency Contact: Liliana Hicksnifer Mobile Relation: Significant Other Past Surgical History: History reviewed. No pertinent surgical history. Immunization History: There is no immunization history on file for this patient. Active Problems: Medical Problems Problem List * (Principal) Shortness of breath Isolation/Infection: No active isolations No active infections Nurse Assessment: Last Vital Signs: BP (!) 142/102 Pulse 88 Temp 36.4 C (97.6 F) (Temporal) Resp 16 Ht 1.854 m (6' 1) Wt 84.6 kg (186 lb 6.4 oz) SpO2 98% BMI 24.59 kg/m Last documented pain score (0-10 scale): Last Weight: Wt Readings from Last 1 Encounters: 03/07/24 84.6 kg (186 lb 6.4 oz) Mental Status: {ROBERT Patient Mental Status:51472} IV Access: {ROBERT IV Access:39613} Nursing Mobility/ADLs: Walking {EMELY ADL:25066::Independent} Transfer {EMELY ADL:36389::Independent} Bathing {EMELY ADL:53301::Independent} Dressing {EMELY ADL:09538::Independent} Toileting {EMELY ADL:40065::Independent} Feeding {EMELY ADL:67584::Independent} Co Founder And Ceo {EMELY ADL:37348::Independent} Med Delivery {yes/no:40407} Wound Care Documentation and Therapy: Elimination: Continence: Bowel: {yes/no:14585} Bladder: {yes/no:22535} Urinary Catheter: {ROBERT Urinary Catheter:28695} Colostomy/Ileostomy/Ileal Conduit: {YES / NO:} Date of Last BM: Intake/Output Summary (Last 24 hours) at 03/07/2024 1326 Last data filed at 03/07/2024 0634 Gross per 24 hour Intake 250 ml Output 1125 ml Net -875 ml I/O last 3 completed shifts: In: 550 (6.5 mL/kg) [P.O.:550] Out: 2375 (28.1 mL/kg) [Urine:2375 (0.8 mL/kg/hr)] Weight: 84.5 kg Safety Concerns: {ROBERT Safety Concerns:42536} Impairments/Disabilities: {ROBERT Impairments/Disabilities:90035} Nutrition Therapy: Current Nutrition Therapy: {ROBERT Diet List:05552} Routes of Feeding: {routes of feedin} Liquids: {liquid consistency:89115} Daily Fluid Restriction: {daily fluid restriction:11063} Last Modified Barium Swallow with Video (Video Swallowing Test): {done not done:20584} Treatments at the Time of Hospital Discharge: Respiratory Treatments: Oxygen Therapy: {Therapy; copd oxygen:84482} Ventilator: {ROBERT Ventilator:06110} Rehab Therapies: {GEN THERAPY DISCIPLINE SCAL:6850770} Weight Bearing Status/Restrictions: {POD WEIGHT BEARIN} Other Medical Equipment (for information only, NOT a DME order): {Assistive Devices DME:92533} Other Treatments: Patient's personal belongings (please select all that are sent with patient): {ROBERT Patient Belongings:61366} RN SIGNATURE: {E-signature:86089} CASE MANAGEMENT/SOCIAL WORK SECTION Inpatient Status Date: Discharging to Facility/ Agency Name: Address: Phone: Fax: Dialysis Facility (if applicable) Name: Address: Dialysis Schedule: Phone: Fax: [employer] Nurse signature: {E-signature:59584} PHYSICIAN SECTION Name: Carlo Medina Prognosis: {Rehab Prognosis:30048} Condition at Discharge: {Patient Condition:27774} Rehab Potential (if transferring to Rehab): {Rehab Prognosis:18459} Recommended Labs or Other Treatments After Discharge: The individual is being admitted to a nursing facility directly from an [facility] or a unit of a [facility] that is not operated by or licensed by [facility] under section 5119.14 or 5160-3-15.1 5 The individual requires the level of services provided by a nursing facility for the condition for which he or she was treated in the hospital and, Physician Certification: I certify the above information and transfer of Carlo Medina is necessary for the continuing treatment of the diagnosis listed and that he requires {ROBERT Level of Care:24183} for {greater less than:67567} 30 days. Update Admission H&P: {ROBERT Changes in H&P:74871} PHYSICIAN SIGNATURE: {E-signature:71507} documented in this [facility]09-08-2024 Consult note* Tahmina Berg RD - 03/07/2024 12:28 PM EDTAssociated Order(s): IP CONSULT TO DIETITIAN Nutrition Education Consult received: cardiac diet/ HF Educated on Low sodium diet for CHF; pt also provided with Heart Healthy diet and tips for loweringLDL Learners: Patient Readiness: Acceptance Method: Explanation, Handout, and Teachback; reviewed high sodium foods to avoid/limit. Briefly reviewed Heart Healthy diet including increased fiber, lean meats and healthy fats (hand-outs provided). Pt states he recently started excising and eating healthy. States ubw 186 lb Response: Verbalizes Understanding Contact name and number provided. Pt also provided with outpt RD contact number Discharge plan today noted. Labs reviewed (bun 27/cr 1.74, gfr 48.4, bnp 9740, HDL 28/ LDL 126. Pt reports +appetite/ tolerating meals at this time. Diet Body Make Up Artist to monitor and follow up Tahmina Berg RD Contact Number: *[phone] or via Secure Chat [id number] Consult note* Tahmina Berg RD - 03/07/2024 12:28 PM EDT Associated Order(s): IP CONSULT TO DIETITIAN Nutrition Education Consult received: cardiac diet/ HF Educated on Low sodium diet for CHF; pt also provided with Heart Healthy diet and tips for loweringLDL Learners: Patient Readiness: Acceptance Method: Explanation, Handout, and Teachback; reviewed high sodium foods to avoid/limit. Briefly reviewed Heart Healthy diet including increased fiber, lean meats and healthy fats (hand-outs provided). Pt states he recently started excising and eating healthy. States ubw 186 lb Response: Verbalizes Understanding Contact name and number provided. Pt also provided with outpt RD contact number Discharge plan today noted. Labs reviewed (bun 27/cr 1.74, gfr 48.4, bnp 9740, HDL 28/ LDL 126. Pt reports +appetite/ tolerating meals at this time. Diet Body Make Up Artist to monitor and follow up Tahmina Berg RD Contact Number: *[phone] or via Secure Chat * Jeffrey Conklin MD - 03/06/2024 1:11 PM EDTAssociated Order(s): IP CONSULT TO CARDIOLOGY Images from the original note were not included. [facility] [address] [address] [facility] [place] [address] Dept: [phone] 44-year-old man seen for newly diagnosed heart failure. His history includes Newly diagnosed LV dysfunction. An echocardiogram done February 29, 2024 showed severe LV dysfunction with an estimated left ventricular ejection fraction of 30% and global LV dysfunction. There was 2+ mitral regurgitation. Pulmonary artery systolic pressure was normal at 23. Probable chronic kidney disease with glomerular filtration rate in the 50s. He was in the emergency department February 28, 2024 with 6 days of shortness of breath. He was foundto be hypertensive in the emergency department while on the blood pressure 176/123. An echocardiogram was completed showing a left ventricular ejection fraction of 30%. He had evidence of bilateral pleural effusions. He was placed on guideline directed medical therapy. Yesterday, he had return of shortness of breath. The plan was to do a coronary CTA to further workup his cardiomyopathy. However,when he developed worsening shortness of breath he was admitted. In my interview with him he says he has had shortness of breath for about a month. He was told recently that he has hypertension. He had not been seeing physicians frequently prior to his recent diagnosis with heart failure. Last night, he developed shortness of breath at rest around 7 PM and he decided to come back to the hospital. He is being admitted for further treatment of his heart failure. Workup so far has revealed a BUN of 22, creatinine 1.65, GFR 52, sodium 138, potassium 3.9, normal,NT proBNP 9740, white blood cell count 5.5, hemoglobin, platelets 313, TSH 4.4. COVID testing was negative. His HDL cholesterol 28, LDL 126 I personally reviewed his chest CT. I did not see any coronary or aortic calcium. There was no pulmonary embolism. He does have small bilateral pleural effusions. I reviewed his chest x-ray from yesterday and it is consistent with heart failure I reviewed his EKG which shows sinus rhythm, LVH with ST-T abnormality. Medical decision making Cardiomyopathy, probably hypertensive cardiomyopathy. Hypertension, probably untreated for years. Dyslipidemia with a low HDL and a fairly high LDL cholesterol. Recommend Optimize guideline directed medical therapy with carvedilol, losartan, spironolactone, and a loop diuretic. IV diuretics at least today and possibly tomorrow. Hopefully, he can go home either tomorrow or Friday Rosuvastatin 10 mg daily Antiplatelet therapy until we figure out whether or not he has any atherosclerotic coronary disease. He will need either a stress test or coronary CTA. In 2023 a coronary CTA is generally preferred. RBC documented in this [facility]09-08-2024 [facility] 03-07-2024 Hospital course Narrative* Guadalupe Celaya MD - 03/07/2024 12:19 PM EDT Discharge Summary Carlo Medina : 1980 ADMIT DATE: 03/05/2024 DISCHARGE DATE: 03/07/2024 PRIMARY CARE PHYSICIAN: No primary care provider on file. VISIT STATUS: Admission CODE STATUS: Full Code DISCHARGE DIAGNOSES: Principal Problem: Shortness of breath HOSPITAL COURSE: This is a 44-year-old male who was admitted for acute HFrEF exacerbation. He was recently diagnosedwith HFrEF 1 week prior to admission for a different admission and was discharged on losartan and metoprolol. Presented again today after he had sudden orthopnea when he awoken from sleep with a prior to admission. Dyspnea worsened so he came to the emergency department. Cardiology was consulted because of readmission within a week and he was started on IV Lasix 40 mg twice daily with significant treatment and symptoms. His GDMT was adjusted and he was started on Aldactone. Metoprolol was stopped and restarted on Coreg instead. He was discharged on Lasix 80 mg daily and also started on rosuvastatin. Per discussions with cardiology, he will follow-up with cardiology outpatient and will discuss further ischemic workup at that time, most likely will need a coronary CTA. He has been discharged in stable condition back home. SIGNIFICANT DIAGNOSTIC STUDIES: Chest x-ray showing pulmonary edema CONSULTANTS: Cardiology RECOMMENDED NEXT STEPS: Follow-up PCP and cardiology Physical Exam Constitutional: Appearance: Normal appearance. He is not ill-appearing. HENT: Head: Normocephalic and atraumatic. Nose: Nose normal. Mouth/Throat: Mouth: Mucous membranes are moist. Eyes: Extraocular Movements: Extraocular movements intact. Pupils: Pupils are equal, round, and reactive to light. Cardiovascular: Rate and Rhythm: Normal rate and regular rhythm. Pulses: Normal pulses. Heart sounds: Normal heart sounds. Pulmonary: Effort: Pulmonary effort is normal. No respiratory distress. Breath sounds: Normal breath sounds. No wheezing or rhonchi. Abdominal: General: Abdomen is flat. Palpations: Abdomen is soft. Tenderness: There is no abdominal tenderness. Musculoskeletal: General: Normal range of motion. Cervical back: Normal range of motion and neck supple. Right lower leg: No edema. Left lower leg: No edema. Skin: General: Skin is warm and dry. Neurological: General: No focal deficit present. Mental Status: He is alert and oriented to person, place, and time. DISCHARGE MEDICATIONS: Medication List START taking these medications carvedilol 6.25 MG tablet Commonly known as: Coreg Take 1 tablet (6.25 mg) by mouth in the morning and 1 tablet (6.25 mg) in the evening. Take with meals. furosemide 80 MG tablet Commonly known as: Lasix Take 1 tablet (80 mg) by mouth daily. rosuvastatin 10 MG tablet Commonly known as: Crestor Take 1 tablet (10 mg) by mouth Nightly. spironolactone 25 MG tablet Commonly known as: Aldactone Take 1 tablet (25 mg) by mouth daily. Start taking on: March 08, 2024 CHANGE how you take these medications losartan 100 MG tablet Commonly known as: Cozaar Take 1 tablet (100 mg) by mouth daily. Start taking on: March 08, 2024 What changed: medication strength how much to take CONTINUE taking these medications clopidogrel 75 MG tablet Commonly known as: Plavix Take 1 tablet (75 mg) by mouth daily. STOP taking these medications metoprolol tartrate 50 MG tablet Commonly known as: Lopressor Where to Get Your Medications These medications were sent to [facility]/pharmacy #[id number] [place] [id number] carvedilol 6.25 MG tablet furosemide 80 MG tablet losartan 100 MG tablet rosuvastatin 10 MG tablet spironolactone 25 MG tablet DIET: Adult diet Regular; Low Sodium (2 gm) ACTIVITY: No restriction. COMPLEXITY OF FOLLOW UP: [x] Moderate Complexity: follow up within 7-14 calendar days (02753) [] Severe Complexity: follow up within 7 calendar days (26580) FOLLOW UP TESTING, PENDING RESULTS OR REFERRALS AT TRANSITIONAL CARE VISIT: [] Yes [x] No PENDING STUDIES: None DISPOSITION: Home FACILITY/HOME CARE AGENCY NAME: Follow up with PCP and cardiology INSTRUCTIONS TO MA/SW: Please call patient on day after discharge (must document patient contacted within 2 business days of discharge). FOLLOW UP QUESTIONS FOR MA/SW: 1. Did you get medications filled and taking them as instructed from discharge? 2. Are you following your discharge instructions from your hospital stay? 3. Please confirm patient is scheduled for a follow up appointment within the above time frame. DISCHARGE TIME: > 30 minutes SIGNED: Gaudalupe Celaya MD 03/07/2024, 1:09 PM documented in this [facility]09-08-2024 Plan of care note* Care Plan - Ruby Powers RN - 03/07/2024 12:18 PM EDT The patient is Moderately Stable - Low risk of patient condition declining or worsening The patient's goals for the shift include rest The clinical goals for the shift include comfort [id number] Miscellaneous Notes* Care Plan - Ruby Powers RN - 03/07/2024 12:18 PM EDT The patient is Moderately Stable - Low risk of patient condition declining or worsening The patient's goals for the shift include rest The clinical goals for the shift include comfort * Care Plan - Lore Meek RN - 03/06/2024 5:45 PM EDT The patient is Moderately Stable - Low risk of patient condition declining or worsening The patient's goals for the shift include feel better The clinical goals for the shift include decrease shortness of breath Over the shift, the patient did not make progress toward the following goals. Barriers to progression include . Recommendations to address these barriers include . documented in this [facility]09-08-2024 History of Present illness Narrative* Jeffrey Conklin MD - 03/07/2024 12:04 PM EDT Images from the original note were not included. [facility] [address] [facility] [address] Dept: [phone] This is a 44-year-old man that we are seeing for heart failure. His history includes Newly diagnosed heart failure with reduced ejection fraction, left ventricular ejection fraction 30% by echocardiogram. Chronic kidney disease with glomerular filtration rates in the 50s Hypertension, probable hypertensive heart disease. The patient is feeling much better today and would like to go home. He has no shortness of breath at rest. He is had no chest pain. His weight is down 15 pounds according to the weight from 201 pounds to 186 pounds. His potassium is 3.5, BUN 27, creatinine 1.7, glomerular filtration rate 48, CBC normal His physical exam is notable for heart rate in the 80s, respirate 16, blood pressure as low as 107/76 and as high as 142/102. He is not requiring any supplemental oxygen and has an oxygen saturation of 98%. He is breathing quietly. He Telemetry shows an irregular run of nonsustained wide QRS tachycardia, 8 beats in length. I had a long talk with the patient about the possibility of a cardiac catheterization. He does not want to stay for cardiac catheterization. I explained to him at some point he would need an ischemicworkup, either a diagnostic cardiac catheterization or noninvasive testing such as coronary CTA or stress testing. The patient prefers to go home and have this done as an outpatient. Medical decision making Compensated heart failure with reduced ejection fraction. He is currently warm and dry. Recommend He could go home today on his current therapy which includes carvedilol 6.25 mg twice daily, clopidogrel 75 mg daily, furosemide 80 mg by mouth daily, losartan 100 mg daily, rosuvastatin 10 mg daily,and spironolactone 25 mg daily. The carvedilol and spironolactone and rosuvastatin are new. He will need prescriptions for that. Heshould stop the metoprolol tartrate. For heart failure with reduced ejection fraction we usually use either metoprolol succinate or carvedilol. In his case I would use carvedilol based on his hypertension. I will arrange follow-up in our office to further discuss an ischemic workup and to follow-up with his heart failure. He could go home today. RBC [facility] this [id number] Plan of care note* Care Plan - Lore Meek RN - 03/06/2024 5:45 PM EDT The patient is Moderately Stable - Low risk of patient condition declining or worsening The patient's goals for the shift include feel better The clinical goals for the shift include decrease shortness of breath Over the shift, the patient did not make progress toward the following goals. Barriers to progression include . Recommendations to address these barriers include . [id number] Consult note* Jeffrey Conklin MD - 03/06/2024 1:11 PM EDTAssociated Order(s): IP CONSULT TO CARDIOLOGY Images from the original note were not included. [facility] [address] [place] [id number] Dept: [phone] 44-year-old man seen for newly diagnosed heart failure. His history includes Newly diagnosed LV dysfunction. An echocardiogram done February 29, 2024 showed severe LV dysfunction with an estimated left ventricular ejection fraction of 30% and global LV dysfunction. There was 2+ mitral regurgitation. Pulmonary artery systolic pressure was normal at 23. Probable chronic kidney disease with glomerular filtration rate in the 50s. He was in the emergency department February 28, 2024 with 6 days of shortness of breath. He was foundto be hypertensive in the emergency department while on the blood pressure 176/123. An echocardiogram was completed showing a left ventricular ejection fraction of 30%. He had evidence of bilateral pleural effusions. He was placed on guideline directed medical therapy. Yesterday, he had return of shortness of breath. The plan was to do a coronary CTA to further workup his cardiomyopathy. However,when he developed worsening shortness of breath he was admitted. In my interview with him he says he has had shortness of breath for about a month. He was told recently that he has hypertension. He had not been seeing physicians frequently prior to his recent diagnosis with heart failure. Last night, he developed shortness of breath at rest around 7 PM and he decided to come back to the hospital. He is being admitted for further treatment of his heart failure. Workup so far has revealed a BUN of 22, creatinine 1.65, GFR 52, sodium 138, potassium 3.9, normal,NT proBNP 9740, white blood cell count 5.5, hemoglobin, platelets 313, TSH 4.4. COVID testing was negative. His HDL cholesterol 28, LDL 126 I personally reviewed his chest CT. I did not see any coronary or aortic calcium. There was no pulmonary embolism. He does have small bilateral pleural effusions. I reviewed his chest x-ray from yesterday and it is consistent with heart failure I reviewed his EKG which shows sinus rhythm, LVH with ST-T abnormality. Medical decision making Cardiomyopathy, probably hypertensive cardiomyopathy. Hypertension, probably untreated for years. Dyslipidemia with a low HDL and a fairly high LDL cholesterol. Recommend Optimize guideline directed medical therapy with carvedilol, losartan, spironolactone, and a loop diuretic. IV diuretics at least today and possibly tomorrow. Hopefully, he can go home either tomorrow or Friday Rosuvastatin 10 mg daily Antiplatelet therapy until we figure out whether or not he has any atherosclerotic coronary disease. He will need either a stress test or coronary CTA. In 2023 a coronary CTA is generally preferred. RBC [id number] History and physical note* Guadalupe Celaya MD - 03/06/2024 12:06 PM EDT Attending History and Physical Admit Date: 03/05/2024 PCP: No primary care provider on file. CHIEF COMPLAINT: Shortness of breath. Reason for Admission: Acute CHF exacerbation. Patient History Obtained From: patient HISTORY OF PRESENT ILLNESS: Carlo is a 44 y.o. male with past medical history of recently diagnosed HFrEF, CKD, who presents with chief complaint listed above. He was recently admitted on 02/28/2024 for new onset heart failure with reduced ejection fraction. EF was found to be 30% at this time. He was placed on GDMT with metoprolol, losartan and was also started on Plavix. Cardiology was consulted and etiology was thought to be from hypertensive HFrEF. Plans were for outpatient evaluation of ischemic heart disease with a coronary CTA and possible genetictesting. Patient presents again today after having shortness of breath when he woke in yesterday morning. Says it was worse when he was lying flat and improved when he stood up and walked around a little bit.He states he noticed worsening orthopnea but happen suddenly. Denied any new onset chest pain. Saidhe has taken off his medication as prescribed when he was last discharged 1 week prior. Denied having any swelling in his lower extremities. Denies nausea, vomiting, diarrhea. No other acute complaints. In the ED, labs significant for creatinine of 1.65, BUN 22. proBNP was elevated at 9740. CBC largely unremarkable. TSH unremarkable. COVID RSV and influenza were negative. CTA of the chest with and without was performed and showed vascular congestion and pulmonary edema. He was given 1 dose of 40 IV Lasix with significant urine output in the emergency department. None recorded but patient says heurinated a lot after the Lasix. Will admit for further evaluation and management. Past Medical History: History reviewed. No pertinent past medical history. Past Surgical History: History reviewed. No pertinent surgical history. Social History: Social History Socioeconomic History Marital status: Single Spouse name: Not on file Number of children: Not on file Years of education: Not on file Highest education level: Not on file Occupational History Not on file Tobacco Use Smoking status: Never Smokeless tobacco: Never Substance and Sexual Activity Alcohol use: Not on file Drug use: Not on file Sexual activity: Not on file Other Topics Concern Not on file Social History Narrative Not on file Social Determinants of Health Financial Resource Strain: Low Risk (02/28/2024) Overall Financial Resource Strain (CARDIA) Difficulty of Paying Living Expenses: Not very hard Food Insecurity: No Food Insecurity (02/28/2024) Hunger Vital Sign Worried About Running Out of Food in the Last Year: Never true Ran Out of Food in the Last Year: Never true Transportation Needs: No Transportation Needs (02/28/2024) PRAPARE - Transportation Lack of Transportation (Medical): No Lack of Transportation (Non-Medical): No Physical Activity: Sufficiently Active (02/28/2024) Exercise Vital Sign Days of Exercise per Week: 5 days Minutes of Exercise per Session: 30 min Stress: Stress Concern Present (02/28/2024) [employer] [place] [place] [employer] - Occupational Stress Questionnaire Feeling of Stress : To some extent Social Connections: Unknown (02/28/2024) Social Connection and Isolation Panel [NHANES] Frequency of Communication with Friends and Family: Once a week Frequency of Social Gatherings with Friends and Family: Once a week Attends Holiness Services: Patient unable to answer Active Member of Clubs or Organizations: No Attends Club or Organization Meetings: Never Marital Status: Living with partner Intimate Partner Violence: Not At Risk (03/06/2024) Humiliation, Afraid, Rape, and Kick questionnaire Fear of Current or Ex-Partner: No Emotionally Abused: No Physically Abused: No Sexually Abused: No Housing Stability: Low Risk (02/28/2024) Housing Stability Vital Sign Unable to Pay for Housing in the Last Year: No Number of Times Moved in the Last Year: 0 Homeless in the Last Year: No Family History: No family history on file. Medications Prior to Admission: No current facility-administered medications on file prior to encounter. Current Outpatient Medications on File Prior to Encounter Medication Sig Dispense Refill clopidogrel (Plavix) 75 MG tablet Take 1 tablet (75 mg) by mouth daily. 90 tablet 0 losartan (Cozaar) 50 MG tablet Take 1 tablet (50 mg) by mouth daily. 90 tablet 0 metoprolol tartrate (Lopressor) 50 MG tablet Take 1 tablet (50 mg) by mouth daily. 90 tablet 0 Allergies: No Known Allergies REVIEW OF SYSTEMS: -Pertinent ROS as above in H&P Vitals: BP (!) 152/105 Pulse 98 Temp 36.6 C (97.8 F) (Temporal) Resp 17 Ht 6' 1 (1.854 m) Wt 201lb (91.2 kg) SpO2 94% BMI 26.52 kg/m BMI Classification: Overweight (BMI 25.0-29.9) Pulse Ox: SpO2 Av.8 % Min: 91 % Max: 100 % Supplemental O2: O2 Flow Rate (L/min): 3 L/min PHYSICAL EXAM: Physical Exam Constitutional: Appearance: Normal appearance. He is not ill-appearing. HENT: Head: Normocephalic and atraumatic. Nose: Nose normal. Mouth/Throat: Mouth: Mucous membranes are moist. Eyes: Extraocular Movements: Extraocular movements intact. Pupils: Pupils are equal, round, and reactive to light. Cardiovascular: Rate and Rhythm: Normal rate and regular rhythm. Pulses: Normal pulses. Heart sounds: Normal heart sounds. Pulmonary: Effort: Pulmonary effort is normal. No respiratory distress. Breath sounds: Normal breath sounds. No wheezing or rhonchi. Abdominal: General: Abdomen is flat. Palpations: Abdomen is soft. Tenderness: There is no abdominal tenderness. Musculoskeletal: General: Normal range of motion. Cervical back: Normal range of motion and neck supple. Right lower leg: No edema. Left lower leg: No edema. Skin: General: Skin is warm and dry. Neurological: General: No focal deficit present. Mental Status: He is alert and oriented to person, place, and time. DATA: CBC: Recent Labs 03/05/24 2203 WBC 5.5 RBC 4.21* HGB 13.4 HCT 39.2* MCV 93.1 RDW 11.7 PLT 313 BMP: Recent Labs 03/05/24 2203 NA 138 K 3.9 CL 104 CO2 25 BUN 22* CREATININE 1.65* GLUCOSE 103* CALCIUM 8.9 ANIONGAP 9 LIVER PROFILE:No results for input(s): AST, ALT, BILITOT, ALKPHOS, PROT in the last 72 hours. No lab exists for component: LABALBU PT/INR: No results for input(s): PROTIME, INR in the last 72 hours. CARDIAC ENZYMES: Recent Labs 03/05/24 2203 TROPONINI 0.019 Procalcitonin: No results found for: PROCAL Urine Culture: No results found for this or any previous visit. COVID-19 PCR: No results for input(s): COVID19 in the last 72 hours. I reviewed/: [x] laboratory results [x] radiographic results At the time of today's encounter. Pt was advised of the results. Assessment Discussed management with the ED provider and agree with hospitalization. Acute, acute on chronic, unstable/uncontrolled chronic problems/diagnoses: # Acute HFrEF exacerbation: Recent echo showed EF of 30% 1 week ago. He does not look significantlyvolume up on exam. No JVP appreciated. -Will start IV Lasix 40 mg daily. - Consider further inpatient evaluation of HFrEF. Given readmission, will consult cardiology for further recs - Resume home losartan and metoprolol . Consider starting SGLT-2 given HF and CKD? Stable chronic problems affecting care, new non-acute diagnoses: # Hypertension # CKD # BMI over 25 Plan As a result of the above findings & factors, the following mgmt was pursued: -Diuresis as above. Cardiology consult for further workup of heart failure with reduced EF. Rest ofplan as above - Resume home meds - am labs, replace lytes prn - PT/OT/CM/SW Delirium precautions: increase activity DVT prophylaxis: enoxaparin and encourage ambulation Advance Directive: Full Code Complexity: Acute illness or injury posing a threat to life or body function (HIGH). Risk: Admission to hospital-level care was considered or occurred (HIGH). Anticipated Discharge - Date - 03/08/2024 - Location - Home - Pending the following - further caridology evaluation Total time spent (which include face to face and non face to face encounters) : 40 minutes. Extended Emergency Contact Information Primary Emergency Contact: Indira Medina Mobile Relation: Sister Secondary Emergency Contact: Kaitlin Hicks Mobile Relation: Significant Other [employer] Carlo Adam : 1980 Primary Care Physician: No primary care provider on file. The patient and/or family/surrogate voluntarily agreed to participate in ACP services. Patient s cognitive capacity: Code Status: [x] [FULL CODE - Continue all advanced life support: CPR,intubation,invasive procedures] [_] [DNR-CCA - DO NOT do CPR, intubation] [_] [DNR-STONE DRESSER - Comfort care only] [_] DNR form [was/was not] signed Summary of discussion: The patient health care POA/ surrogate is the following: . [Condition that instigated the ACP on this DOS, relevant PMH, functional status, goals of care, andwhom this was discussed with including names and relationship to the patient, and any relevant advance care documentation discussion] I answered all the patient/family questions that I could within the range and scope of the current medical situation. We discussed the medical conditions, risks, benefits, outcomes, and goals of careat this time for the patient's medical issues at hand in the face of the patient's chronic issues and current presentation. Total time spent: 10 minutes were spent discussing the patient's resuscitation status, advance careplanning, and end of life care, with patient and/or family/surrogate. Guadalupe Celaya MD Division of Hospitalist Medicine [id number] [facility]09-07-2024 History and physical note* Guadalupe Celaya MD - 03/06/2024 12:06 PM EDT Attending History and Physical Admit Date: 03/05/2024 PCP: No primary care provider on file. CHIEF COMPLAINT: Shortness of breath. Reason for Admission: Acute CHF exacerbation. Patient History Obtained From: patient HISTORY OF PRESENT ILLNESS: Carlo is a 44 y.o. male with past medical history of recently diagnosed HFrEF, CKD, who presents with chief complaint listed above. He was recently admitted on 02/28/2024 for new onset heart failure with reduced ejection fraction. EF was found to be 30% at this time. He was placed on GDMT with metoprolol, losartan and was also started on Plavix. Cardiology was consulted and etiology was thought to be from hypertensive HFrEF. Plans were for outpatient evaluation of ischemic heart disease with a coronary CTA and possible genetictesting. Patient presents again today after having shortness of breath when he woke in yesterday morning. Says it was worse when he was lying flat and improved when he stood up and walked around a little bit.He states he noticed worsening orthopnea but happen suddenly. Denied any new onset chest pain. Mireille has taken off his medication as prescribed when he was last discharged 1 week prior. Denied having any swelling in his lower extremities. Denies nausea, vomiting, diarrhea. No other acute complaints. In the ED, labs significant for creatinine of 1.65, BUN 22. proBNP was elevated at 9740. CBC largely unremarkable. TSH unremarkable. COVID RSV and influenza were negative. CTA of the chest with and without was performed and showed vascular congestion and pulmonary edema. He was given 1 dose of 40 IV Lasix with significant urine output in the emergency department. None recorded but patient says heurinated a lot after the Lasix. Will admit for further evaluation and management. Past Medical History: History reviewed. No pertinent past medical history. Past Surgical History: History reviewed. No pertinent surgical history. Social History: Social History Socioeconomic History Marital status: Single Spouse name: Not on file Number of children: Not on file Years of education: Not on file Highest education level: Not on file Occupational History Not on file Tobacco Use Smoking status: Never Smokeless tobacco: Never Substance and Sexual Activity Alcohol use: Not on file Drug use: Not on file Sexual activity: Not on file Other Topics Concern Not on file Social History Narrative Not on file Social Determinants of Health Financial Resource Strain: Low Risk (02/28/2024) Overall Financial Resource Strain (CARDIA) Difficulty of Paying Living Expenses: Not very hard Food Insecurity: No Food Insecurity (02/28/2024) Hunger Vital Sign Worried About Running Out of Food in the Last Year: Never true Ran Out of Food in the Last Year: Never true Transportation Needs: No Transportation Needs (02/28/2024) PRAPARE - Transportation Lack of Transportation (Medical): No Lack of Transportation (Non-Medical): No Physical Activity: Sufficiently Active (02/28/2024) Exercise Vital Sign Days of Exercise per Week: 5 days Minutes of Exercise per Session: 30 min Stress: Stress Concern Present (02/28/2024) [employer] [place] [place] [employer] - Occupational Stress Questionnaire Feeling of Stress : To some extent Social Connections: Unknown (02/28/2024) Social Connection and Isolation Panel [NHANES] Frequency of Communication with Friends and Family: Once a week Frequency of Social Gatherings with Friends and Family: Once a week Attends Holiness Services: Patient unable to answer Active Member of Clubs or Organizations: No Attends Club or Organization Meetings: Never Marital Status: Living with partner Intimate Partner Violence: Not At Risk (03/06/2024) Humiliation, Afraid, Rape, and Kick questionnaire Fear of Current or Ex-Partner: No Emotionally Abused: No Physically Abused: No Sexually Abused: No Housing Stability: Low Risk (02/28/2024) Housing Stability Vital Sign Unable to Pay for Housing in the Last Year: No Number of Times Moved in the Last Year: 0 Homeless in the Last Year: No Family History: No family history on file. Medications Prior to Admission: No current facility-administered medications on file prior to encounter. Current Outpatient Medications on File Prior to Encounter Medication Sig Dispense Refill clopidogrel (Plavix) 75 MG tablet Take 1 tablet (75 mg) by mouth daily. 90 tablet 0 losartan (Cozaar) 50 MG tablet Take 1 tablet (50 mg) by mouth daily. 90 tablet 0 metoprolol tartrate (Lopressor) 50 MG tablet Take 1 tablet (50 mg) by mouth daily. 90 tablet 0 Allergies: No Known Allergies REVIEW OF SYSTEMS: -Pertinent ROS as above in H&P Vitals: BP (!) 152/105 Pulse 98 Temp 36.6 C (97.8 F) (Temporal) Resp 17 Ht 6' 1 (1.854 m) Wt 201lb (91.2 kg) SpO2 94% BMI 26.52 kg/m BMI Classification: Overweight (BMI 25.0-29.9) Pulse Ox: SpO2 Av.8 % Min: 91 % Max: 100 % Supplemental O2: O2 Flow Rate (L/min): 3 L/min PHYSICAL EXAM: Physical Exam Constitutional: Appearance: Normal appearance. He is not ill-appearing. HENT: Head: Normocephalic and atraumatic. Nose: Nose normal. Mouth/Throat: Mouth: Mucous membranes are moist. Eyes: Extraocular Movements: Extraocular movements intact. Pupils: Pupils are equal, round, and reactive to light. Cardiovascular: Rate and Rhythm: Normal rate and regular rhythm. Pulses: Normal pulses. Heart sounds: Normal heart sounds. Pulmonary: Effort: Pulmonary effort is normal. No respiratory distress. Breath sounds: Normal breath sounds. No wheezing or rhonchi. Abdominal: General: Abdomen is flat. Palpations: Abdomen is soft. Tenderness: There is no abdominal tenderness. Musculoskeletal: General: Normal range of motion. Cervical back: Normal range of motion and neck supple. Right lower leg: No edema. Left lower leg: No edema. Skin: General: Skin is warm and dry. Neurological: General: No focal deficit present. Mental Status: He is alert and oriented to person, place, and time. DATA: CBC: Recent Labs 03/05/24 2203 WBC 5.5 RBC 4.21* HGB 13.4 HCT 39.2* MCV 93.1 RDW 11.7 PLT 313 BMP: Recent Labs 03/05/24 2203 NA 138 K 3.9 CL 104 CO2 25 BUN 22* CREATININE 1.65* GLUCOSE 103* CALCIUM 8.9 ANIONGAP 9 LIVER PROFILE:No results for input(s): AST, ALT, BILITOT, ALKPHOS, PROT in the last 72 hours. No lab exists for component: LABALBU PT/INR: No results for input(s): PROTIME, INR in the last 72 hours. CARDIAC ENZYMES: Recent Labs 03/05/24 2203 TROPONINI 0.019 Procalcitonin: No results found for: PROCAL Urine Culture: No results found for this or any previous visit. COVID-19 PCR: No results for input(s): COVID19 in the last 72 hours. I reviewed/: [x] laboratory results [x] radiographic results At the time of today's encounter. Pt was advised of the results. Assessment Discussed management with the ED provider and agree with hospitalization. Acute, acute on chronic, unstable/uncontrolled chronic problems/diagnoses: # Acute HFrEF exacerbation: Recent echo showed EF of 30% 1 week ago. He does not look significantlyvolume up on exam. No JVP appreciated. -Will start IV Lasix 40 mg daily. - Consider further inpatient evaluation of HFrEF. Given readmission, will consult cardiology for further recs - Resume home losartan and metoprolol . Consider starting SGLT-2 given HF and CKD? Stable chronic problems affecting care, new non-acute diagnoses: # Hypertension # CKD # BMI over 25 Plan As a result of the above findings & factors, the following mgmt was pursued: -Diuresis as above. Cardiology consult for further workup of heart failure with reduced EF. Rest ofplan as above - Resume home meds - am labs, replace lytes prn - PT/OT/CM/SW Delirium precautions: increase activity DVT prophylaxis: enoxaparin and encourage ambulation Advance Directive: Full Code Complexity: Acute illness or injury posing a threat to life or body function (HIGH). Risk: Admission to hospital-level care was considered or occurred (HIGH). Anticipated Discharge - Date - 03/08/2024 - Location - Home - Pending the following - further caridology evaluation Total time spent (which include face to face and non face to face encounters) : 40 minutes. Extended Emergency Contact Information Primary Emergency Contact: Indira Medina Mobile Relation: Sister Secondary Emergency Contact: Kaitlin Hicks Mobile Relation: Significant Other [employer] Carlo Medina : 1980 Primary Care Physician: No primary care provider on file. The patient and/or family/surrogate voluntarily agreed to participate in ACP services. Patient s cognitive capacity: Code Status: [x] [FULL CODE - Continue all advanced life support: CPR,intubation,invasive procedures] [_] [DNR-CCA - DO NOT do CPR, intubation] [_] [DNR-STONE DRESSER - Comfort care only] [_] DNR form [was/was not] signed Summary of discussion: The patient health care POA/ surrogate is the following: . [Condition that instigated the ACP on this DOS, relevant PMH, functional status, goals of care, andwhom this was discussed with including names and relationship to the patient, and any relevant advance care documentation discussion] I answered all the patient/family questions that I could within the range and scope of the current medical situation. We discussed the medical conditions, risks, benefits, outcomes, and goals of careat this time for the patient's medical issues at hand in the face of the patient's chronic issues and current presentation. Total time spent: 10 minutes were spent discussing the patient's resuscitation status, advance careplanning, and end of life care, with patient and/or family/surrogate. Guadalupe Celaya MD Division of Hospitalist Medicine [facility] documented in this [facility]09-07-2024 Emergency department Note* Pauline Martienz RN - 03/06/2024 8:23 AM EDT Called [facility] to inform of pt refusing to go by squad and wants to go private vehicle. Pauline Martinez RN 03/06/24 08 [id number] Emergency [facility]* Pauline Martinez RN - 03/06/2024 8:23 AM EDT Called [facility] to inform of pt refusing to go by squad and wants to go private vehicle. Pauline Martinez RN 03/06/24 08 * Shane Stern MD - 03/05/2024 9:43 PM EDT Emergency Department Encounter [facility] ED Patient: Carlo Medina : 1980 Date of Evaluation: 03/05/2024 ED Provider: Shane Stern MD CHIEF COMPLAINT: Shortness of breath Chief Complaint Patient presents with Shortness of Breath Since 7pm HPI: Carlo Medina is a 44 y.o. male with PMH per EMR including CHF, presents with concern for shortness of breath. Patient reports recent hospitalization for CHF, he reports yesterday evening he had an episode of shortness of breath which resolved, this evening at 7 PM he had recurrent shortness of breath, dry cough, states it hurts to cough, otherwise denies chest pain, he denies wheezing, fever chills, abdominal pain, nausea vomiting, diarrhea, lower extremity swelling or calf pain, he endorses recent travel to [place], denies history of DVT or PE, denies hemoptysis, denies baseline oxygen requirement. REVIEW OF SYSTEMS: Pertinent positives and negatives as per HPI. HISTORIES: PAST MEDICAL HISTORY: as per HPI SOCIAL HISTORY: Per EMR no tobacco use MEDICATIONS: Nursing notes and EMR reviewed ALLERGIES: Nursing notes and EMR reviewed PHYSICAL EXAM: Vital signs: reviewed General: Ill-appearing, nontoxic, on nasal cannula oxygen Eyes: no conjunctival injection, eyes tracking HEENT: airway patent, mucous membranes moist Cardiovascular: regular rhythm, tachycardic rate Respiratory: Shallow tachypnea, no significant increased work of breathing, speaks in full sentences, subtle basilar crackles, no wheezing Gastrointestinal: soft, non-distended, non-tender to palpation throughout Extremities: no obvious deformity, non edematous bilateral lower extremities, no calf tenderness Integumentary: warm, dry Neurologic: alert and oriented, answering questions appropriately, no obvious neurologic deficits MEDICAL DECISION MAKING: Medications nitroglycerin (Nitrostat) SL tablet 0.4 mg (0.4 mg SubLINGual Given 03/05/242202) furosemide (Lasix) injection 40 mg (40 mg IntraVENous Given 03/06/24 0009) Carlo Medina is a 44 y.o. male who presents as above, acute dyspnea, recent hospitalization for CHF, arrives tachycardic, tachypneic, hypoxic-improved on nasal cannula oxygen with no baseline requirement, he is hypertensive, tachypneic, no respiratory distress, presentation concerning for CHF exac erbation, ACS, pneumonia, lesser suspicion for PE although recent hospitalization and travel, discussed with patient, obtain workup to evaluate including chest x-ray, EKG, labs evaluation including D-dimer, viral panel, will treat with nitroglycerin for elevated blood pressure. Labs obtained, interpreted by me, notable for creatinine 1.65 previously 1.56, BNP 9740 increased from prior evaluation, no leukocytosis, hemoglobin within normal limits, D-dimer elevated-we will obtain CTA chest EKG obtained, per my interpretation, notable for sinus tachycardia, LVH with secondary repolarization abnormality, similar to prior EKG. Troponin 0.019 CXR obtained, interpreted per radiologist findings compatible with vascular congestion and interstitial edema versus nonspecific postinflammatory change and bronchitis with perihilar infiltrate similar to comparison, clinical correlation and follow-up is indicated CTA chest per radiologist interpretation, no PE, findings compatible with vascular congestion and pulmonary edema in the appropriate clinical setting, mildly increased in the interval, small right and minimal left pleural effusions, similar Overall clinical picture and workup results consistent with acute CHF exacerbation with hypoxia, patient informed of findings, will treat with IV Lasix, plan for admission at [facility] for further management, discussed with admitting Dr. Pozo accepts patient for telemetry admission, appropriate for admission at this time. DIAGNOSIS: Shortness of breath, acute on chronic congestive heart failure, hypoxia, pleural effusions DISPOSITION: Admission PRESCRIPTIONS: New Prescriptions No medications on file Comment: Please note this report has been produced using speech recognition software and may contain errors related to that system including errors in grammar, punctuation, and spelling, as well as words and phrases that may be inappropriate. If there are any questions or concerns please feel free to contact the dictating provider for clarification. Shane Stern MD Acute Care [facility] Shane Stern MD 03/06/24 6967 * Aicha Hsieh RN - 03/05/2024 9:43 PM EDT 44 m to ED c/o sob since 7pm. Pt reports [facility]. Was d/c'd Friday with new diagnosis of CHF. Pt reports SOB improved while he was up walking. Pt arrived at 88% on rm air. Placed on 3L nc. * Marycarmen Dias RN - 03/05/2024 9:43 PM EDT Upon signing transfer for, pt states he was informed by prior nurse that he could be driven by private car. Pt is informed that as he is on oxygen and continuous cardiac monitoring, squad transfer isrecommended. Physician is updated and aware and now at bedside. Marycarmen Dias RN 03/06/24 0808 * Marycarmen Dias RN - 03/05/2024 9:43 PM EDT Pt removed by physician with sats maintained. Per Dr. Julien, pt is permitted to be driven by private car. IV access maintained intact in right AC with a coban wrap Marycarmen Dias RN 03/06/24 0830 documented in this [facility]SD[facility] [id number] Emergency department Note* Marycarmen Dias RN - 03/05/2024 9:43 PM EDT Upon signing transfer for, pt states he was informed by prior nurse that he could be driven by private car. Pt is informed that as he is on oxygen and continuous cardiac monitoring, squad transfer isrecommended. Physician is updated and aware and now at bedside. Marycarmen Dias RN 03/06/24 0808 [place] [id number] Emergency department Note* Marycarmen Dias RN - 03/05/2024 9:43 PM EDT Pt removed by physician with sats maintained. Per Dr. Julien, pt is permitted to be driven by private car. IV access maintained intact in right AC with a coban wrap Marycarmen Dias RN 03/06/24 08 [id number] Emergency department Triage note* Aicha Hsieh RN - 03/05/2024 9:43 PM EDT 44 m to ED c/o sob since 7pm. Pt reports he was [facility] for same complaints last[facility]. Was d/c'd Friday with new diagnosis of CHF. Pt reports SOB improved while he was up walking. Pt arrived at 88% on rm air. Placed on 3L nc. [id number] Physician Emergency department Note* Shane Stern MD - 03/05/2024 9:43 PM EDT Emergency Department Encounter [facility] ED Patient: Carlo Medina : 1980 Date of Evaluation: 03/05/2024 ED Provider: Shane Stern MD CHIEF COMPLAINT: Shortness of breath Chief Complaint Patient presents with Shortness of Breath Since 7pm HPI: Carlo Medina is a 44 y.o. male with PMH per EMR including CHF, presents with concern for shortness of breath. Patient reports recent hospitalization for CHF, he reports yesterday evening he had an episode of shortness of breath which resolved, this evening at 7 PM he had recurrent shortness of breath, dry cough, states it hurts to cough, otherwise denies chest pain, he denies wheezing, fever chills, abdominal pain, nausea vomiting, diarrhea, lower extremity swelling or calf pain, he endorses recent travel to [place], denies history of DVT or PE, denies hemoptysis, denies baseline oxygen requirement. REVIEW OF SYSTEMS: Pertinent positives and negatives as per HPI. HISTORIES: PAST MEDICAL HISTORY: as per HPI SOCIAL HISTORY: Per EMR no tobacco use MEDICATIONS: Nursing notes and EMR reviewed ALLERGIES: Nursing notes and EMR reviewed PHYSICAL EXAM: Vital signs: reviewed General: Ill-appearing, nontoxic, on nasal cannula oxygen Eyes: no conjunctival injection, eyes tracking HEENT: airway patent, mucous membranes moist Cardiovascular: regular rhythm, tachycardic rate Respiratory: Shallow tachypnea, no significant increased work of breathing, speaks in full sentences, subtle basilar crackles, no wheezing Gastrointestinal: soft, non-distended, non-tender to palpation throughout Extremities: no obvious deformity, non edematous bilateral lower extremities, no calf tenderness Integumentary: warm, dry Neurologic: alert and oriented, answering questions appropriately, no obvious neurologic deficits MEDICAL DECISION MAKING: Medications nitroglycerin (Nitrostat) SL tablet 0.4 mg (0.4 mg SubLINGual Given 03/05/242202) furosemide (Lasix) injection 40 mg (40 mg IntraVENous Given 03/06/24 0009) Carlo Medina is a 44 y.o. male who presents as above, acute dyspnea, recent hospitalization for CHF, arrives tachycardic, tachypneic, hypoxic-improved on nasal cannula oxygen with no baseline requirement, he is hypertensive, tachypneic, no respiratory distress, presentation concerning for CHF exac erbation, ACS, pneumonia, lesser suspicion for PE although recent hospitalization and travel, discussed with patient, obtain workup to evaluate including chest x-ray, EKG, labs evaluation including D-dimer, viral panel, will treat with nitroglycerin for elevated blood pressure. Labs obtained, interpreted by me, notable for creatinine 1.65 previously 1.56, BNP 9740 increased from prior evaluation, no leukocytosis, hemoglobin within normal limits, D-dimer elevated-we will obtain CTA chest EKG obtained, per my interpretation, notable for sinus tachycardia, LVH with secondary repolarization abnormality, similar to prior EKG. Troponin 0.019 CXR obtained, interpreted per radiologist findings compatible with vascular congestion and interstitial edema versus nonspecific postinflammatory change and bronchitis with perihilar infiltrate similar to comparison, clinical correlation and follow-up is indicated CTA chest per radiologist interpretation, no PE, findings compatible with vascular congestion and pulmonary edema in the appropriate clinical setting, mildly increased in the interval, small right and minimal left pleural effusions, similar Overall clinical picture and workup results consistent with acute CHF exacerbation with hypoxia, patient informed of findings, will treat with IV Lasix, plan for admission at [facility] for further management, discussed with admitting Dr. Pozo accepts patient for telemetry admission, appropriate for admission at this time. DIAGNOSIS: Shortness of breath, acute on chronic congestive heart failure, hypoxia, pleural effusions DISPOSITION: Admission PRESCRIPTIONS: New Prescriptions No medications on file Comment: Please note this report has been produced using speech recognition software and may contain errors related to that system including errors in grammar, punctuation, and spelling, as well as words and phrases that may be inappropriate. If there are any questions or concerns please feel free to contact the dictating provider for clarification. Shane Stern MD [facility] Shane Stern MD 03/06/24 0447 [facility] [id number] Telephone encounter Note* Telephone Encounter - Kaitlin Gonzalez LPN - 03/04/2024 10:00 AM EDT Unable to contact patient X2 [facility] [id number] Miscellaneous Notes* Telephone Encounter - Kaitlin Gonzalez LPN - 03/04/2024 10:00 AM EDT Unable to contact patient X2 * Telephone Encounter - Kaitlin Gonzalez LPN - 03/02/2024 10:30 AM EDT S: Patient admitted to: [facility] 02/28/24 B: Discharged on : 03/01/24 A: Hospital follow up call initiated to discuss any medication changes, follow up appointments and discharge instructions: Shortness of breath R: No contact x 1 at : [phone] documented in this encounterSDetwiler [facility] [id number] Telephone encounter Note* Telephone Encounter - Kaitlin Gonzalez LPN - 03/02/2024 10:30 AM EDT S: Patient admitted to: [facility] 02/28/24 B: Discharged on : 03/01/24 A: Hospital follow up call initiated to discuss any medication changes, follow up appointments and discharge instructions: Shortness of breath R: No contact x 1 at : [phone] [id number] Nurse Note* Tamiko Live RN - 03/01/2024 1:31 PM EDT Discharge instructions given to patient and questions were addressed. Encouraged patient to follow up with cardiology and new PCP scheduled with Family Medicine. [id number] Nurse Note* Tamiko Live RN - 03/01/2024 1:31 PM EDT Discharge instructions given to patient and questions were addressed. Encouraged patient to follow up with cardiology and new PCP scheduled with Family Medicine. documented in this [facility]09-02-2024 History of Present illness Narrative* Radha Parikh MD - 03/01/2024 1:17 PM EDT Cardiology progress note Chart and interval events reviewed. SUBJECTIVE: Carlo Medina reports that he is feeling well and would like to go home. He has no chest pain shortness of breath or palpitation. He is tolerated the addition of losartan and metoprolol to his medical regimen well remains asymptomatic normotensive and has had no arrhythmia on overnight monitoring. SCHEDULED MEDICATIONS: Scheduled Meds clopidogrel, 75 mg, Oral, Daily enoxaparin, 40 mg, SubCUTAneous, Daily losartan, 50 mg, Oral, Daily metoprolol tartrate, 50 mg, Oral, Daily ondansetron, 4 mg, IntraVENous, Once REVIEW OF SYSTEMS: General ROS: negative Allergy and Immunology ROS: negative Hematological and Lymphatic ROS: no bleeding complaints Endocrine ROS: negative Respiratory ROS: negative Cardiovascular ROS: negative VITAL SIGNS: BP (!) 141/107 (BP Location: Left arm, Patient Position: Lying) Pulse 93 Temp 36.1 C (96.9 F) (Temporal) Resp 16 Ht 6' 1 (1.854 m) Wt 205 lb (93 kg) SpO2 98% BMI 27.05 kg/m PHYSICAL EXAMINATION: General appearance: well nourished, alert, no acute distress Skin: Skin color, texture, turgor normal. No rashes or lesions. Eyes: No icterus. HENT: Oral mucous membranes moist. Neck supple, no bruits, no JVD Lungs: Lungs clear to auscultation bilaterally. No retractions or use of accessory muscles. No ronchi, rales. Heart: RRR normal S1 and S2, no S3, no murmur, gallop or rub Abdomen: Abdomen soft, non-tender. No ascites. Bowel sounds normal. Extremities: Extremities normal. No deformities, edema, or skin discoloration. No cyanosis or clubbing noted to the nails. Musculoskeletal: ROM normal. Muscular strength intact. Neuro: Alert and oriented to person, place and time. No gross motor or sensory abnormalities, speech and language use normal and clear Psych: No depression. Vasc: Peripheral pulses intact. Data: Scheduled Meds: Reviewed Continuous Infusions: Continuous Meds Intake/Output Summary (Last 24 hours) at 03/01/2024 1303 Last data filed at 03/01/2024 0816 Gross per 24 hour Intake 360 ml Output -- Net 360 ml Recent Labs 02/28/24181703/01/24 0257 WBC 6.6 4.9 HGB 13.5 13.5 HCT 40.0 40.3 PLT 279 280 Recent Labs 02/29/24 0318 03/01/24 0257 NA 136 136 K 3.8 3.7 CL 105 106 CO2 24 23 BUN 19 22* CREATININE 1.58* 1.56* Lab Results Component Value Date TSH 1.375 02/28/2024 Recent Labs 02/28/24181702/28/24 21102/29/248 TROPONINI 0.019 0.019 0.026 Lab Results Component Value Date TRIG 88 02/29/2024 HDL 28 (L) 02/29/2024 LDLCALC 126 (H) 02/29/2024 CHOL 172 02/29/2024 Lab Results Component Value Date HGBA1C 5.0 03/01/2024 EKG: Normal sinus rhythm LVH secondary repolarization changes. ECHO: Left Ventricle: Left ventricle is mildly dilated. Mildly increased wall thickness. Mild septal thickening. Moderately reduced left ventricular systolic function. EF by 2D Simpsons Biplane is 30%. Global longitudinal strain is -7.1%. Severe global hypokinesis present. Grade II diastolic dysfunction with increased LAP. Right Ventricle: Right ventricle size is normal. Normal systolic function. TAPSE is 2.5 cm. Aortic Valve: No stenosis. AV mean gradient is 3 mmHg. AV peak velocity is 1.2 m/s. LVOT:AV VTI Index is 0.76. Mitral Valve: Moderate (2+) regurgitation. Tricuspid Valve: RVSP is 23 mmHg. Left Atrium: Left atrium is moderately dilated. [place] Vol Index A/L is 42 mL/m2. Aorta: Normal sized sinuses of Valsalva and ascending aorta. Sinuses of Valsalva diameter is 3.2 cm. Ao ascending diameter is 3.3 cm. IVC/SVC: IVC diameter is normal and decreases greater than 50% during inspiration; therefore the estimated right atrial pressure is normal (~3 mmHg). TELE: Normal sinus rhythm IMPRESSIONS: HFrEF. Stage C. Class III. Likely hypertensive. EF 30%. Initial GDMT well- tolerated. I again had a long discussion with the patient regarding management of this chronic lifelong disease. I stressed the importance of escalating guideline directed medical therapy, cardiac rehab, and evaluation for alt ernative explanations including ischemic or genetic causes. The patient wishes to be discharged today, and I believe is safe to do so. I will ask our heart failure team to reach out to him to establish care. Radha Parikh MD [facility] 03/01/24 1:03 PM * Mary Ellen Brito MD - 03/01/2024 7:52 AM EDT Hospitalist Progress Note 03/01/2024 Subjective: Admit Date: 02/28/2024 PCP: No primary care provider on file. Room#: B2-268/B2-268 A BRIEF HOSPITAL COURSE: Carlo is a 44 year old male, with no acute medical history and not followed by PCP, who presentedwith 6 days history of worsening shortness of breath, cough, light headedness, and chest tightness.In the ED at [place] was found to be hypertensive 176/123, P 111, RR 24, oxygen 96%. He had an elevated d-dimer 1.45, Creatinine 1.5, BNP 5170. EKG showing HR 113, Qtc 469, Left atrial and left vent ricular hypertrophy, anterior ST segment withdrawal. Echo was completed and patient was found to have an EF of 30%, with bilateral pleural effusions. Interval History: Patient was seen by cardiology - echo showing EF 30%, increased wall thickness and LV dilation, MR, Vital signs obtained and labs reviewed. Patient feels better and wanting to go home, feels that he can do things at home and take medications in the evening. NO fever or chills. No cough or congestions Denies any reactions to the medications. No overnight issues. Case and plan discussed with patient and bedside nurse. All questions answered. Adult diet Regular; Low Sodium (2 gm) 24HR INTAKE/OUTPUT: Intake/Output Summary (Last 24 hours) at 03/01/2024 0752 Last data filed at 02/29/2024 1950 Gross per 24 hour Intake 120 ml Output -- Net 120 ml Past Medical History: History reviewed. No pertinent past medical history. LABS: CBC: Recent Labs 02/28/24181703/01/24256 WBC 6.6 4.9 RBC 4.34* 4.32* HGB 13.5 13.5 HCT 40.0 40.3 MCV 92.2 93.3 RDW 11.7 11.8 PLT 279 280 BMP: Recent Labs 02/28/24211102/29/2431703/01/24256 NA 139 136 136 K 4.2 3.8 3.7 CL 104 105 106 CO2 25 24 23 BUN 19 19 22* CREATININE 1.66* 1.58* 1.56* GLUCOSE 118* 117* 103* CALCIUM 9.1 8.8 8.7 ANIONGAP 10 8 7 LIVER PROFILE: Recent Labs 02/28/241817 AST 39 ALT 19 BILITOT 1.0 ALKPHOS 83 PROT 7.8 PT/INR: No results for input(s): PROTIME, INR in the last 72 hours. CARDIAC ENZYMES: Recent Labs 02/28/24181702/28/24211102/29/24317 TROPONINI 0.019 0.019 0.026 Procalcitonin: No results found for: PROCAL COVID-19 PCR: No results for input(s): COVID19 in the last 72 hours. Objective: Vitals: BP 135/100 (BP Location: Right arm, Patient Position: Lying) Pulse 81 Temp (!) 35.8 C (96.5 F) (Temporal) Resp 18 Ht 6' 1 (1.854 m) Wt 205 lb (93 kg) SpO2 97% BMI 27.05 kg/m Pulse Ox: SpO2 Av.8 % Min: 93 % Max: 98 % Supplemental O2: Physical Exam Vitals and nursing note reviewed. Constitutional: Appearance: Normal appearance. He is not ill-appearing. HENT: Head: Normocephalic. Right Ear: There is no impacted cerumen. Left Ear: There is no impacted cerumen. Nose: No congestion. Mouth/Throat: Mouth: Mucous membranes are moist. Pharynx: Oropharynx is clear. Eyes: General: Right eye: No discharge. Conjunctiva/sclera: Conjunctivae normal. Cardiovascular: Rate and Rhythm: Normal rate and regular rhythm. Heart sounds: Murmur heard. Pulmonary: Effort: No respiratory distress. Breath sounds: No wheezing. Abdominal: General: Bowel sounds are normal. There is no distension. Tenderness: There is abdominal tenderness. There is rebound. Musculoskeletal: Right lower leg: No edema. Left lower leg: No edema. Skin: General: Skin is warm. Capillary Refill: Capillary refill takes less than 2 seconds. Coloration: Skin is not pale. Findings: No bruising. Neurological: Mental Status: He is alert and oriented to person, place, and time. Medications: Scheduled PRN clopidogrel, 75 mg, Oral, Daily enoxaparin, 40 mg, SubCUTAneous, Daily losartan, 50 mg, Oral, Daily metoprolol tartrate, 50 mg, Oral, Daily ondansetron, 4 mg, IntraVENous, Once PRN medications: acetaminophen OR acetaminophen, hydrALAZINE, ondansetron ODT OR ondansetron, polyethylene glycol (PEG) 3350 Continuous Assessment Data: (CAT1) Reviewed 3 or more notes from different specialty or health system (each=1). (CAT1) Reviewed 3 or more labs/studies ordered by another provider not previously counted (each=1, panels count as 1). (LOW: 2x CAT1 or independent historian MOD: 3x CAT1 or 1x CAT3 EXTENSIVE: 3x CAT1 and 1x CAT3) Acute, acute on chronic, unstable/uncontrolled chronic problems/diagnoses: Bilateral small pleural effusion right greater than left Monitor - may need thoracentesis vs diuresis Cardiomegaly with elevated BNP Heart Failure with reduced Ejection fracture Follow up echo - EF 30%, with severe global hypokinesis, and Grade II diastolic dysfunction Cardiology consult - GDMT Metoprolol 50 mg PO daily Losartan 50 mg PO daily Hydralazine 5 mg IV q4h prn Plavix 75 mg PO daily TSH within normal limites, LDL 126, HDL 28 Elevated D- dimer Acute kidney insufficiency with CKD stage 3a Renal dose medications Hypertension Awaiting cardiology recommendations. Plan As a result of the above findings & factors, the following mgmt was pursued: - 02/28- Follow up labs and results, GDMT, educated on heart failure,daily labs, obtain a1c, - 03/01 - Vital signs and labs reviewed, Echo shows HF, was started on hydralazine, losartan, metoprolol, and plavix, cardiac diet with low sodium, labs reviewed - Awaiting cardiology recommendations for discharge plan. - am labs, replace lytes prn - PT/OT/CM/SW - delirium precautions: increase activity and limit nighttime disturbances - DVT prophylaxis: enoxaparin and encourage ambulation Complexity: Chronic illness with severe exacerbation, progression, or side effect of tx (HIGH). Risk: Admission to hospital-level care was considered or occurred (HIGH). Advance Directive: Full Code Anticipated Discharge - Date - 03/02 - Location - home - Pending the following - clinical improvement and establish ment of regimen. Total time spent (which include face to face and non face to face encounters) : 39 minutes Toxic drug monitoring/narrow therapeutic index drug monitoring : # Drug name : NA # Route administered : NA # Method of monitoring : NA Extended Emergency Contact Information Primary Emergency Contact: Indira Medina Mobile Relation: Sister Secondary Emergency Contact: Kaitlin Hicks Mobile Relation: Significant Other Mary Ellen Brito MD Division of Hospitalist Medicine [facility] * Mary Ellen Brito MD - 02/29/2024 8:27 AM EDT Hospitalist Progress Note 02/29/2024 Subjective: Admit Date: 02/28/2024 PCP: No primary care provider on file. Room#: B2-268/B2-268 A BRIEF HOSPITAL COURSE: Carlo is a 44 year old male, with no acute medical history and not followed by PCP, who presentedwith 6 days history of worsening shortness of breath, cough, light headedness, and chest tightness.In the ED at [place] was found to be hypertensive 176/123, P 111, RR 24, oxygen 96%. He had an elevated d-dimer 1.45, Creatinine 1.5, BNP 5170. EKG showing HR 113, Qtc 469, Left atrial and left vent ricular hypertrophy, anterior ST segment withdrawal. Echo was completed and patient was found to have an EF of 30%, with bilateral pleural effusions. Interval History: Continue to feel short of breath on exertion, no fever or chills. Has not been to the doctor in years - older brother got diagnosed with HF around 46, No cough or congestion. States that he has on and off chest pain for some time - usually at rest and would wake him up in the middle of the night Denies every being tested for sleep apnea or evening knowing if he has elevated blood pressure in the past. No overnight issues. Case and plan discussed with patient and bedside nurse. All questions answered. Adult diet Regular; Low Sodium (2 gm) 24HR INTAKE/OUTPUT: Intake/Output Summary (Last 24 hours) at 02/29/2024826 Last data filed at 02/29/2024 0620 Gross per 24 hour Intake 120 ml Output 1800 ml Net -1680 ml Past Medical History: History reviewed. No pertinent past medical history. LABS: CBC: Recent Labs 02/28/241817 WBC 6.6 RBC 4.34* HGB 13.5 HCT 40.0 MCV 92.2 RDW 11.7 PLT 279 BMP: Recent Labs 02/28/24181702/29/24 0318 NA 138 136 K 4.3 3.8 CL 105 105 CO2 25 24 BUN 20 19 CREATININE 1.50* 1.58* GLUCOSE 111* 117* CALCIUM 8.8 8.8 ANIONGAP 8 8 LIVER PROFILE: Recent Labs 02/28/241817 AST 39 ALT 19 BILITOT 1.0 ALKPHOS 83 PROT 7.8 PT/INR: No results for input(s): PROTIME, INR in the last 72 hours. CARDIAC ENZYMES: Recent Labs 02/28/24181702/28/24211102/29/24 0318 TROPONINI 0.019 0.019 0.026 Procalcitonin: No results found for: PROCAL COVID-19 PCR: No results for input(s): COVID19 in the last 72 hours. Objective: Vitals: BP 112/69 (BP Location: Right arm, Patient Position: Lying) Pulse 56 Temp 36.7 C (98.1 F) (Temporal) Resp 18 Ht 6' 1 (1.854 m) Wt 205 lb (93 kg) SpO2 95% BMI 27.05 kg/m Pulse Ox: SpO2 Av.3 % Min: 95 % Max: 97 % Supplemental O2: Physical Exam Vitals and nursing note reviewed. Constitutional: Appearance: Normal appearance. He is not ill-appearing. HENT: Head: Normocephalic. Right Ear: There is no impacted cerumen. Left Ear: There is no impacted cerumen. Nose: No congestion. Mouth/Throat: Mouth: Mucous membranes are moist. Pharynx: Oropharynx is clear. Eyes: General: Right eye: No discharge. Conjunctiva/sclera: Conjunctivae normal. Cardiovascular: Rate and Rhythm: Normal rate and regular rhythm. Heart sounds: Murmur heard. Pulmonary: Effort: No respiratory distress. Breath sounds: No wheezing. Abdominal: General: Bowel sounds are normal. There is no distension. Tenderness: There is abdominal tenderness. There is rebound. Musculoskeletal: Right lower leg: No edema. Left lower leg: No edema. Skin: General: Skin is warm. Capillary Refill: Capillary refill takes less than 2 seconds. Coloration: Skin is not pale. Findings: No bruising. Neurological: Mental Status: He is alert and oriented to person, place, and time. Medications: Scheduled PRN enoxaparin, 40 mg, SubCUTAneous, Daily ondansetron, 4 mg, IntraVENous, Once PRN medications: acetaminophen OR acetaminophen, hydrALAZINE, ondansetron ODT OR ondansetron, polyethylene glycol (PEG) 3350 Continuous Assessment Data: (CAT1) Reviewed 3 or more notes from different specialty or health system (each=1). (CAT1) Reviewed 3 or more labs/studies ordered by another provider not previously counted (each=1, panels count as 1). (LOW: 2x CAT1 or independent historian MOD: 3x CAT1 or 1x CAT3 EXTENSIVE: 3x CAT1 and 1x CAT3) Acute, acute on chronic, unstable/uncontrolled chronic problems/diagnoses: Bilateral small pleural effusion right greater than left Cardiomegaly with elevated BNP Follow up echo - EF 30%, with severe global hypokinesis, and Grade II diastolic dysfunction Cardiology consult - GDMT TSH within normal limites, LDL 126, HDL 28 Elevated D- dimer Acute kidney insufficiency with CKD stage 3a Renal dose medications Hypertension Awaiting cardiology recommendations. Plan As a result of the above findings & factors, the following mgmt was pursued: - 02/28- Follow up labs and results, GDMT, educated on heart failure,daily labs, obtain a1c, - am labs, replace lytes prn - PT/OT/CM/SW - delirium precautions: increase activity and limit nighttime disturbances - DVT prophylaxis: enoxaparin and encourage ambulation Complexity: Chronic illness with severe exacerbation, progression, or side effect of tx (HIGH). Risk: Admission to hospital-level care was considered or occurred (HIGH). Advance Directive: Full Code Anticipated Discharge - Date - 03/02 - Location - home - Pending the following - clinical improvement and establish ment of regimen. Total time spent (which include face to face and non face to face encounters) : 39 minutes Toxic drug monitoring/narrow therapeutic index drug monitoring : # Drug name : NA # Route administered : NA # Method of monitoring : NA Extended Emergency Contact Information Primary Emergency Contact: Indira Medina Mobile Relation: Sister Secondary Emergency Contact: Kaitlin Hicks Mobile Relation: Significant Other Mary Ellen Brito MD Division of Hospitalist Medicine [facility] documented in this [facility]09-02-2024 Hospital Discharge instructions* Discharge Instructions* Mary Ellen Brito MD - 03/01/2024 12:50 PM EDT HEART FAILURE SIGNS AND SYMPTOMS GREEN ZONE: All Clear- Your Symptoms Are Under Control No shortness of breath No weight gain of 3 pounds in 1 day or 5 pounds in 1 week No increase in your usual amount of swelling No chest pain No decreased ability to maintain usual activity This Means You Should: Continue taking your medications as prescribed Continue daily weights Continue low salt diet Keep all doctor appointments YELLOW ZONE: Caution as Your Health may be Worsening Weight increases 3 pounds in 1 day or 5 pounds in 1 week Increased cough, especially at night Increased shortness of breath with activity Increased shortness of breath laying down Have any wheezing or chest tightness at rest Need to sleep sitting in a chair or require more pillows when lying down Increased swelling in feet, ankles, or legs Feeling more tired or lack of energy Uneasy feeling or that something is wrong This Means You Should: Call your doctor for further instructions RED ZONE: Medical Alert Unrelieved shortness of breath with rest Unrelieved chest pain Confusion or you can't think clearly Fainting This Means You Should Call 911 Immediately When pt gets insurance he can call the office to make sure they take it. if unable to get it through work or medicaid will need to call back to make appointment with [facility] prior to appointment * Discharge Instr - Activity* Tamiko Live RN - 03/01/2024 1:15 PM EDT As tolerated * Discharge Instr - Diet* Tamiko Live RN - 03/01/2024 1:15 PM EDT Healthy heart diet * Discharge Instr - ROBERT* Tamiko Live RN - 03/01/2024 1:15 PM EDT * Attachments The following attachments cannot be sent through Care Everywhere. * Shortness of Breath (Dyspnea) (Moroccan) * DASH Diet (Moroccan) * Heart Failure Exercise Guide (Moroccan) * Heart Failure With Reduced Ejection Fraction (Moroccan) * How to Weigh Yourself (Moroccan) documented in this [facility]09-02-2024 [facility] 03-01-2024 Hospital course Narrative* Mary Ellen Brito MD - 03/01/2024 11:37 AM EDT Images from the original note were not included. Hospitalist Discharge Summary Carlo Medina : 1980 Admit date: 02/28/2024 Discharge date: 03/01/2024 Admitting Physician: Sherri Jeter MD Primary Care Physician: No primary care provider on file. Visit Status: Inpatient Code Status: Full Code BRIEF HOSPITAL COURSE: Carlo is a 44 year old male, with no acute medical history and not followed by PCP, who presentedwith 6 days history of worsening shortness of breath, cough, light headedness, and chest tightness.In the ED at [place] was found to be hypertensive 176/123, P 111, RR 24, oxygen 96%. He had an elevated d-dimer 1.45, Creatinine 1.5, BNP 5170. EKG showing HR 113, Qtc 469, Left atrial and left vent ricular hypertrophy, anterior ST segment withdrawal. Echo was completed and patient was found to have an EF of 30%, with bilateral pleural effusions, left ventricular cardiomyopathy, was placed on GDMT. Acute, acute on chronic, unstable/uncontrolled chronic problems/discharge diagnoses: Bilateral small pleural effusion right greater than left Monitor - may need thoracentesis vs diuresis Cardiomegaly with elevated BNP Heart Failure with reduced Ejection fracture Follow up echo - EF 30%, with severe global hypokinesis, and Grade II diastolic dysfunction Cardiology consult - GDMT Metoprolol 50 mg PO daily Losartan 50 mg PO daily Hydralazine 5 mg IV q4h prn Plavix 75 mg PO daily TSH within normal limites, LDL 126, HDL 28 Elevated D- dimer Acute kidney insufficiency with CKD stage 3a Renal dose medications Hypertension As above . A1c - 5% History reviewed. No pertinent past medical history. Procedures: Radiology: Chest x-ray: Cardiomegaly pattern of right-sided cardiac chamber enlargement hyperinflation pulmonary vascular congestion versus diffuse interstitial syncytial infiltrates. CTA chest (I personally reviewed the images of the CT chest) 1. Cardiomegaly. Pulmonary vascular congestion with infiltrates. Bilateral small pleural effusions,right greater than left. 2. Peribronchial wall thickening concerning for bronchiolitis. 3. No pulmonary artery embolus. 4. Small hiatal hernia. Echo 02/29/2024 Left Ventricle: Left ventricle is mildly dilated. Mildly increased wall thickness. Mild septal thickening. Moderately reduced left ventricular systolic function. EF by 2D Simpsons Biplane is 30%. Global longitudinal strain is -7.1%. Severe global hypokinesis present. Grade II diastolic dysfunction with increased LAP. Right Ventricle: Right ventricle size is normal. Normal systolic function. TAPSE is 2.5 cm. Aortic Valve: No stenosis. AV mean gradient is 3 mmHg. AV peak velocity is 1.2 m/s. LVOT:AV VTI Index is 0.76. Mitral Valve: Moderate (2+) regurgitation. Tricuspid Valve: RVSP is 23 mmHg. Left Atrium: Left atrium is moderately dilated. LA Vol Index A/L is 42 mL/m2. Aorta: Normal sized sinuses of Valsalva and ascending aorta. Sinuses of Valsalva diameter is 3.2 cm. Ao ascending diameter is 3.3 cm. IVC/SVC: IVC diameter is normal and decreases greater than 50% during inspiration; therefore the estimated right atrial pressure is normal (~3 mmHg) Hospital Course: See discharge diagnoses list above and medication adjustments below in med rec.Thepatient is discharged in improved and stable condition. Consults: IP CONSULT TO HOSPITALIST IP CONSULT TO CARDIOLOGY Discharge Instructions: Diet: Dietary Orders (From admission, onward) Start Ordered 02/29/2435 Adult diet Regular; Low Sodium (2 gm) Diet effective now Question Answer Comment Diet type Regular Sodium restriction: Low Sodium (2 gm) 02/29/2435 Activity: as tolerated Recommended Outpatient Tests: Disposition: Patient discharged in stable condition to Home. Greater than 31 minutes spent discharging the patient and coming up with patient discharge plan. Vitals: BP (!) 141/107 (BP Location: Left arm, Patient Position: Lying) Pulse 93 Temp 36.1 C (96.9 F) (Temporal) Resp 16 Ht 6' 1 (1.854 m) Wt 205 lb (93 kg) SpO2 98% BMI 27.05 kg/m Pulse Ox: SpO2 Av.5 % Min: 93 % Max: 98 % Supplemental O2: Physical Exam Vitals reviewed. Constitutional: Appearance: He is obese. HENT: Nose: Nose normal. Mouth/Throat: Pharynx: Oropharynx is clear. Eyes: Conjunctiva/sclera: Conjunctivae normal. Cardiovascular: Rate and Rhythm: Normal rate and regular rhythm. Heart sounds: Murmur heard. Pulmonary: Effort: No respiratory distress. Breath sounds: No wheezing. Musculoskeletal: Right lower leg: No edema. Left lower leg: No edema. Skin: Capillary Refill: Capillary refill takes less than 2 seconds. Coloration: Skin is not jaundiced. Neurological: Mental Status: He is alert and oriented to person, place, and time. LABS: Recent Labs 02/28/24211102/29/24 0318 03/01/24 0257 NA 139 136 136 K 4.2 3.8 3.7 CL 104 105 106 CO2 25 24 23 BUN 19 19 22* CREATININE 1.66* 1.58* 1.56* GLUCOSE 118* 117* 103* CALCIUM 9.1 8.8 8.7 Recent Labs 02/28/24 1818 03/01/24 0257 WBC 6.6 4.9 RBC 4.34* 4.32* HGB 13.5 13.5 HCT 40.0 40.3 MCV 92.2 93.3 MCH 31.1 31.3 MCHC 33.8 33.5 RDW 11.7 11.8 PLT 279 280 MPV 9.3 9.6 Discharge Medications: Medication List START taking these medications clopidogrel 75 MG tablet Commonly known as: Plavix Take 1 tablet (75 mg) by mouth daily. Start taking on: March 02, 2024 losartan 50 MG tablet Commonly known as: Cozaar Take 1 tablet (50 mg) by mouth daily. Start taking on: March 02, 2024 metoprolol tartrate 50 MG tablet Commonly known as: Lopressor Take 1 tablet (50 mg) by mouth daily. Start taking on: March 02, 2024 Where to Get Your Medications These medications were sent to [facility]/pharmacy #[id number] [place] [address] clopidogrel 75 MG tablet losartan 50 MG tablet metoprolol tartrate 50 MG tablet Recommended Follow-up: Radha Parikh MD [address] [place], [place] [id number] Follow up Please call and schedule an appointment if you have not heard back from them in a week\ Complexity of Follow up: [] Moderate Complexity: follow up within 7-14 calendar days (06765) [x] Severe Complexity: follow up within 7 calendar days (14601) Follow up Testing, Pending results or Referrals at Transitional Care Visit: [x] yes [] no Instructions to MA: Please call patient on day after discharge (must document patient contacted within 2 business days of discharge). Follow up questions for MA: 1. Did you get medications filled and taking them as instructed from discharge? 2. Are you following your discharge instructions from your hospital stay? 3. Please confirm patient is scheduled for a follow up appointment within the above time frame. Signed: Mary Ellen Brito MD [facility] 03/01/2024, 12:24 PM documented in this [facility]09-02-2024 Plan of care note* Care Plan - Tamiko Live RN - 03/01/2024 11:15 AM EDT The patient is Moderately Stable - Low risk of patient condition declining or worsening The patient's goals for the shift include go home The clinical goals for the shift include education on disease Problem: Knowledge Deficit Goal: Patient/family/caregiver demonstrates understanding of disease process, treatment plan, medications, and discharge instructions Outcome: Progressing Problem: Excessive Fluid Volume Goal: Fluid and electrolyte balance are achieved/maintained Outcome: Progressing Problem: Activity Intolerance/Impaired Mobility Goal: Mobility/activity is maintained at optimum level for patient Outcome: Progressing Problem: Nutrition Goal: Nutritional status is improving Outcome: [facility]ing [id number] Miscellaneous Notes* Care Plan - Tamiko Live RN - 03/01/2024 11:15 AM EDT The patient is Moderately Stable - Low risk of patient condition declining or worsening The patient's goals for the shift include go home The clinical goals for the shift include education on disease Problem: Knowledge Deficit Goal: Patient/family/caregiver demonstrates understanding of disease process, treatment plan, medications, and discharge instructions Outcome: Progressing Problem: Excessive Fluid Volume Goal: Fluid and electrolyte balance are achieved/maintained Outcome: Progressing Problem: Activity Intolerance/Impaired Mobility Goal: Mobility/activity is maintained at optimum level for patient Outcome: Progressing Problem: Nutrition Goal: Nutritional status is improving Outcome: Progressing * Care Plan - Nirmala Hogan RN - 03/01/2024 5:10 AM EDT The patient is Moderately Stable - Low risk of patient condition declining or worsening The patient's goals for the shift include rest The clinical goals for the shift include pt education * Care Coordination - Olvin York RN - 02/29/2024 7:52 PM EDT Care Managment Initial Assessment Date: 02/29/2024 Patient Name: Carlo Medina : 1980 Patient Information Source of Information: Patient Cognition/Language: WFL - Within Functional Limits Permission given to speak with patient insurance verification representative/caregiver as indicated: Confirmation of Payer with patient/family: No Payer Name: Self Pay - emailed Patient [employer] to be sure they have started a Medicaid [place]ac for patient [place]: No Confirmation of Primary Care Physician: No PCP Seen in last 2 years?: No Primary Caregiver: Self If assistance needed, confirmed caregiver ready, willing and able to care for patient at discharge:Yes Confirmed with: Per patient, his SO is ready, willing, and able to assist as needed. Living Arrangements Current Residence: House Number of Floors 1 Number of Entry Steps: 3 Bed/Bath Levels: Both first floor Facility: Facility Name: Plan to Return: Yes Lives with: Spouse/significant other Support Systems: Spouse/significant other, Family members, Friends/neighbors Activities of Daily Living Ambulation: Independent Bathing/Dressing: Independent Elimination/Continence/Toileting: Independent Feeding: Independent Who Assists with Activities of Daily Living: Instrumental Activities of Daily Living Prescription Coverage: Yes Pharmacy Used: doesn't have any regular meds so doesn't have a regular pharmacy Medication Management: Independent Transportation/Shopping: Assistance Provider Transportation/Shopping Assistance Provider Name: Family, friends Transportation Mode: Car Needs Assistance with Transportation at Discharge: No (Family or friends will be able to drive home) Meal Preparation: Independent Laundry/Cleaning: Independent Finances/Bill Paying: Independent Communication: Independent Types of Care Services/Equipment Utilized Care Services: (n/a) Dialysis Type: NA Durable Medical Equipment: (n/a) Patient's Goal/Discharge Plan Patient expects to be discharged to: Home Discharge Planning Actions: Continue to follow Patient's Choice Rights and [employer] and Collaborative Relationships Disclosed as Indicated for Post-Acute Care: Interdisciplinary Team Engagement: Social Work Referral for: Additional Information: Spoke to patient at bedside. Introduced self and role. Assessment information taken from both conversation with patient and EPIC chart review. 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 Workup at outside emergency room shows cardiomegaly with vascular congestion. He additionally has elevated BNP EKG with sinus tachycardia and LVH. This is on the background what likely has been longstanding untreated hypertension per his history. Echo was completed and patient was found to have an EF of 30%, with bilateral pleural effusions. Consults: Cardio PT/OT: no PT/OT consults ordered but patient is independent with all ADL/IADLs and up ad shashi at baseline Current DCP: Home Discharge planning needs discussed. Patient denied any needs. Patient verbalizes understanding and is in agreement with POC. States SO is ready, willing, and able to assist as needed. TCC will continue to follow. Olvin York RN * Care Plan - Tamiko Live RN - 02/29/2024 10:33 AM EDT The patient is Moderately Stable - Low risk of patient condition declining or worsening The patient's goals for the shift include see cardiology The clinical goals for the shift include hemodynamically stable documented [facility] [id number] Plan of care note* Care Plan - Nirmala Hogan RN - 03/01/2024 5:10 AM EDT The patient is Moderately Stable - Low risk of patient condition declining or worsening The patient's goals for the shift include rest The clinical goals for the shift include pt education [id number] Note* Care Coordination - Olvin York RN - 02/29/2024 7:52 PM EDT Care Managment Initial Assessment Date: 02/29/2024 Patient Name: Carlo Medina : 1980 Patient Information Source of Information: Patient Cognition/Language: WFL - Within Functional Limits Permission given to speak with patient insurance verification representative/caregiver as indicated: Confirmation of Payer with patient/family: No Payer Name: Self Pay - emailed Patient [employer]oc[employer] to be sure they have started a Medicaid isaac for patient [place]: No Confirmation of Primary Care Physician: No PCP Seen in last 2 years?: No Primary Caregiver: Self If assistance needed, confirmed caregiver ready, willing and able to care for patient at discharge:Yes Confirmed with: Per patient, his SO is ready, willing, and able to assist as needed. Living Arrangements Current Residence: House Number of Floors 1 Number of Entry Steps: 3 Bed/Bath Levels: Both first floor Facility: Facility Name: Plan to Return: Yes Lives with: Spouse/significant other Support Systems: Spouse/significant other, Family members, Friends/neighbors Activities of Daily Living Ambulation: Independent Bathing/Dressing: Independent Elimination/Continence/Toileting: Independent Feeding: Independent Who Assists with Activities of Daily Living: Instrumental Activities of Daily Living Prescription Coverage: Yes Pharmacy Used: doesn't have any regular meds so doesn't have a regular pharmacy Medication Management: Independent Transportation/Shopping: Assistance Provider Transportation/Shopping Assistance Provider Name: Family, friends Transportation Mode: Car Needs Assistance with Transportation at Discharge: No (Family or friends will be able to drive home) Meal Preparation: Independent Laundry/Cleaning: Independent Finances/Bill Paying: Independent Communication: Independent Types of Care Services/Equipment Utilized Care Services: (n/a) Dialysis Type: NA Durable Medical Equipment: (n/a) Patient's Goal/Discharge Plan Patient expects to be discharged to: Home Discharge Planning Actions: Continue to follow Patient's Choice Rights and [employer] and Collaborative Relationships Disclosed as Indicated for Post-Acute Care: Interdisciplinary Team Engagement: Social Work Referral for: Additional Information: Spoke to patient at bedside. Introduced self and role. Assessment information taken from both conversation with patient and EPIC chart review. 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 Workup at outside emergency room shows cardiomegaly with vascular congestion. He additionally has elevated BNP EKG with sinus tachycardia and LVH. This is on the background what likely has been longstanding untreated hypertension per his history. Echo was completed and patient was found to have an EF of 30%, with bilateral pleural effusions. Consults: Cardio PT/OT: no PT/OT consults ordered but patient is independent with all ADL/IADLs and up ad shashi at baseline Current DCP: Home Discharge planning needs discussed. Patient denied any needs. Patient verbalizes understanding and is in agreement with POC. States SO is ready, willing, and able to assist as needed. TCC will continue to follow. Olvin York RN [id number] Note* Care Coordination - Olvin York RN - 02/29/2024 7:52 PM EDT Care Managment Initial Assessment Date: 02/29/2024 Patient Name: Carlo Medina : 1980 Patient Information Source of Information: Patient Cognition/Language: WFL - Within Functional Limits Permission given to speak with patient insurance verification representative/caregiver as indicated: Confirmation of Payer with patient/family: No Payer Name: Self Pay - emailed Patient [employer] to be sure they have started a Medicaid isaac for patient [place]: No Confirmation of Primary Care Physician: No PCP Seen in last 2 years?: No Primary Caregiver: Self If assistance needed, confirmed caregiver ready, willing and able to care for patient at discharge:Yes Confirmed with: Per patient, his SO is ready, willing, and able to assist as needed. Living Arrangements Current Residence: House Number of Floors 1 Number of Entry Steps: 3 Bed/Bath Levels: Both first floor Facility: Facility Name: Plan to Return: Yes Lives with: Spouse/significant other Support Systems: Spouse/significant other, Family members, Friends/neighbors Activities of Daily Living Ambulation: Independent Bathing/Dressing: Independent Elimination/Continence/Toileting: Independent Feeding: Independent Who Assists with Activities of Daily Living: Instrumental Activities of Daily Living Prescription Coverage: Yes Pharmacy Used: doesn't have any regular meds so doesn't have a regular pharmacy Medication Management: Independent Transportation/Shopping: Assistance Provider Transportation/Shopping Assistance Provider Name: Family, friends Transportation Mode: Car Needs Assistance with Transportation at Discharge: No (Family or friends will be able to drive home) Meal Preparation: Independent Laundry/Cleaning: Independent Finances/Bill Paying: Independent Communication: Independent Types of Care Services/Equipment Utilized Care Services: (n/a) Dialysis Type: NA Durable Medical Equipment: (n/a) Patient's Goal/Discharge Plan Patient expects to be discharged to: Home Discharge Planning Actions: Continue to follow Patient's Choice Rights and [employer] and Collaborative Relationships Disclosed as Indicated for Post-Acute Care: Interdisciplinary Team Engagement: Social Work Referral for: Additional Information: Spoke to patient at bedside. Introduced self and role. Assessment information taken from both conversation with patient and EPIC chart review. 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 Workup at outside emergency room shows cardiomegaly with vascular congestion. He additionally has elevated BNP EKG with sinus tachycardia and LVH. This is on the background what likely has been longstanding untreated hypertension per his history. Echo was completed and patient was found to have an EF of 30%, with bilateral pleural effusions. Consults: Cardio PT/OT: no PT/OT consults ordered but patient is independent with all ADL/IADLs and up ad shashi at baseline Current DCP: Home Discharge planning needs discussed. Patient denied any needs. Patient verbalizes understanding and is in agreement with POC. States SO is ready, willing, and able to assist as needed. TCC will continue to follow. Olvin York RN [id number] Plan of care note* Care Plan - Tamiko Live RN - 02/29/2024 10:33 AM EDT The patient is Moderately Stable - Low risk of patient condition declining or worsening The patient's goals for the shift include see cardiology The clinical goals for the shift include hemodynamically stable [id number] Consult note* Radha Parikh MD - 02/29/2024 8:48 AM EDT Associated Order(s): IP CONSULT TO CARDIOLOGY Images from the original note were not included. CARDIOLOGY CONSULTATION Patient Name: Carlo Medina : 1980 Reason for Consultation: New onset CHF referred by Dr. Jeter History of Present Illness: Carlo Medina is a 44-year-old man 6.1 205 pounds BMI 27 with no significant past medical history presenting with a 5-day history of worsening shortness of breath. Initial evaluation is concerning for hypertension, tachycardia, renal insufficiency, cardiomegaly and pulmonary vascular congestion radiographically with elevated BNP. CT pulmonary angiogram, and viral respiratory panel are negative. There is no evidence of myocardial injury by enzymes or ECG. Consultation is requested regarding further evaluation. Past Medical History: The pt has has no past medical history on file. Surgical History: The pt has has no past surgical history on file. Social History: The pt reports reports that he has never smoked. He has never used smokeless tobacco. The patient reports that he got a little trouble a while back and now cannot drive. He lives in [facility] and is completely dependent on others for transportation Family History: Negative for premature CAD or SCD. Medications: Prior to Admission medications Not on File Allergies: Patient has no known allergies. REVIEW OF SYSTEMS: General: Fatigue Respiratory: Shortness of breath Cardiovascular: No complaints Gastrointestinal: no abdominal pain, change in bowel habits, or black or bloody stools Neurological: no TIA or stroke symptoms Musculoskeletal: No complaints Psych: No complaints PHYSICAL EXAMINATION: BP (!) 156/111 Pulse 95 Temp 37.1 C (98.7 F) (Temporal) Resp 16 Ht 6' 1 (1.854 m) Wt 205lb (93 kg) SpO2 95% BMI 27.05 kg/m General appearance: Well nourished, alert, no distress Eyes: No icterus. HENT: Oral mucous membranes moist. No JVD Lungs: Clear to auscultation bilaterally. No retractions or use of accessory muscles. No ronchi, rales. Heart: RRR normal S1 and S2, no S3, no murmur, gallop or rub Abdomen: Abdomen soft, non-tender. BS normal. Extremities: Extremities normal. No deformities, edema, or skin discoloration. No cyanosis or clubbing noted to the nails. Neuro: Alert and oriented to person, place, time. No gross motor or sensory abnormalities. No difficulty with speech/language. Pertinent DATA: (All Data, Cardiac Tests and Imaging personally reviewed) Recent Labs 02/28/24181702/29/248 NA 138 136 K 4.3 3.8 CL 105 105 CO2 25 24 BUN 20 19 CREATININE 1.50* 1.58* Recent Labs 02/28/241817 WBC 6.6 HGB 13.5 HCT 40.0 MCV 92.2 PLT 279 Recent Labs 02/28/24181702/28/24211102/29/24317 TROPONINI 0.019 0.019 0.026 Recent Labs 02/28/241817 BNP 5,170* Lab Results Component Value Date TSH 1.375 02/28/2024 ECG: Sinus tachycardia left ventricular birdfeeders a lateral T wave Radiology: Chest x-ray: Cardiomegaly pattern of right-sided cardiac chamber enlargement hyperinflation pulmonary vascular congestion versus diffuse interstitial syncytial infiltrates. CTA chest (I personally reviewed the images of the CT chest) 1. Cardiomegaly. Pulmonary vascular congestion with infiltrates. Bilateral small pleural effusions,right greater than left. 2. Peribronchial wall thickening concerning for bronchiolitis. 3. No pulmonary artery embolus. 4. Small hiatal hernia. Assessment: Shortness of breath. Etiology is unclear. Initial evaluation is concerning for hypertensive HFrEF. Echocardiography to assess LV function and guide evaluation management is pending. Radha Parikh MD 02/29/24 8:56 AM ADD: Echo 02/29/2024 Left Ventricle: Left ventricle is mildly dilated. Mildly increased wall thickness. Mild septal thickening. Moderately reduced left ventricular systolic function. EF by 2D Simpsons Biplane is 30%. Global longitudinal strain is -7.1%. Severe global hypokinesis present. Grade II diastolic dysfunction with increased LAP. Right Ventricle: Right ventricle size is normal. Normal systolic function. TAPSE is 2.5 cm. Aortic Valve: No stenosis. AV mean gradient is 3 mmHg. AV peak velocity is 1.2 m/s. LVOT:AV VTI Index is 0.76. Mitral Valve: Moderate (2+) regurgitation. Tricuspid Valve: RVSP is 23 mmHg. Left Atrium: Left atrium is moderately dilated. LA Vol Index A/L is 42 mL/m2. Aorta: Normal sized sinuses of Valsalva and ascending aorta. Sinuses of Valsalva diameter is 3.2 cm. Ao ascending diameter is 3.3 cm. IVC/SVC: IVC diameter is normal and decreases greater than 50% during inspiration; therefore the estimated right atrial pressure is normal (~3 mmHg) I had a long discussion with the patient regarding the above findings reviewed treatment strategy including escalation of guideline directed medical therapy and the importance of cardiac rehab for his recovery. I suggested outpatient evaluation of ischemic heart disease (CTA), and possible genetic testing to look for a cause other than hypertensive cardiomyopathy. I recommended referral to the heart failure group for dose escalation and further evaluation. This patient's management is limited by the social issues detailed above. Radha Parikh MD [facility] 02/29/24 11:39 AM [id number] Consult note* Radha Parikh MD - 02/29/2024 8:48 AM EDT Associated Order(s): IP CONSULT TO CARDIOLOGY Images from the original note were not included. CARDIOLOGY CONSULTATION Patient Name: Carlo Medina : 1980 Reason for Consultation: New onset CHF referred by Dr. Jeter History of Present Illness: Carlo Medina is a 44-year-old man 6.1 205 pounds BMI 27 with no significant past medical history presenting with a 5-day history of worsening shortness of breath. Initial evaluation is concerning for hypertension, tachycardia, renal insufficiency, cardiomegaly and pulmonary vascular congestion radiographically with elevated BNP. CT pulmonary angiogram, and viral respiratory panel are negative. There is no evidence of myocardial injury by enzymes or ECG. Consultation is requested regarding further evaluation. Past Medical History: The pt has has no past medical history on file. Surgical History: The pt has has no past surgical history on file. Social History: The pt reports reports that he has never smoked. He has never used smokeless tobacco. The patient reports that he got a little trouble a while back and now cannot drive. He lives in [facility] and is completely dependent on others for transportation Family History: Negative for premature CAD or SCD. Medications: Prior to Admission medications Not on File Allergies: Patient has no known allergies. REVIEW OF SYSTEMS: General: Fatigue Respiratory: Shortness of breath Cardiovascular: No complaints Gastrointestinal: no abdominal pain, change in bowel habits, or black or bloody stools Neurological: no TIA or stroke symptoms Musculoskeletal: No complaints Psych: No complaints PHYSICAL EXAMINATION: BP (!) 156/111 Pulse 95 Temp 37.1 C (98.7 F) (Temporal) Resp 16 Ht 6' 1 (1.854 m) Wt 205lb (93 kg) SpO2 95% BMI 27.05 kg/m General appearance: Well nourished, alert, no distress Eyes: No icterus. HENT: Oral mucous membranes moist. No JVD Lungs: Clear to auscultation bilaterally. No retractions or use of accessory muscles. No ronchi, rales. Heart: RRR normal S1 and S2, no S3, no murmur, gallop or rub Abdomen: Abdomen soft, non-tender. BS normal. Extremities: Extremities normal. No deformities, edema, or skin discoloration. No cyanosis or clubbing noted to the nails. Neuro: Alert and oriented to person, place, time. No gross motor or sensory abnormalities. No difficulty with speech/language. Pertinent DATA: (All Data, Cardiac Tests and Imaging personally reviewed) Recent Labs 02/28/24181702/29/248 NA 138 136 K 4.3 3.8 CL 105 105 CO2 25 24 BUN 20 19 CREATININE 1.50* 1.58* Recent Labs 02/28/241817 WBC 6.6 HGB 13.5 HCT 40.0 MCV 92.2 PLT 279 Recent Labs 02/28/24181702/28/242 02/29/24 0318 TROPONINI 0.019 0.019 0.026 Recent Labs 02/28/241817 BNP 5,170* Lab Results Component Value Date TSH 1.375 02/28/2024 ECG: Sinus tachycardia left ventricular birdfeeders a lateral T wave Radiology: Chest x-ray: Cardiomegaly pattern of right-sided cardiac chamber enlargement hyperinflation pulmonary vascular congestion versus diffuse interstitial syncytial infiltrates. CTA chest (I personally reviewed the images of the CT chest) 1. Cardiomegaly. Pulmonary vascular congestion with infiltrates. Bilateral small pleural effusions,right greater than left. 2. Peribronchial wall thickening concerning for bronchiolitis. 3. No pulmonary artery embolus. 4. Small hiatal hernia. Assessment: Shortness of breath. Etiology is unclear. Initial evaluation is concerning for hypertensive HFrEF. Echocardiography to assess LV function and guide evaluation management is pending. Radha Parikh MD 02/29/24 8:56 AM ADD: Echo 02/29/2024 Left Ventricle: Left ventricle is mildly dilated. Mildly increased wall thickness. Mild septal thickening. Moderately reduced left ventricular systolic function. EF by 2D Simpsons Biplane is 30%. Global longitudinal strain is -7.1%. Severe global hypokinesis present. Grade II diastolic dysfunction with increased LAP. Right Ventricle: Right ventricle size is normal. Normal systolic function. TAPSE is 2.5 cm. Aortic Valve: No stenosis. AV mean gradient is 3 mmHg. AV peak velocity is 1.2 m/s. LVOT:AV VTI Index is 0.76. Mitral Valve: Moderate (2+) regurgitation. Tricuspid Valve: RVSP is 23 mmHg. Left Atrium: Left atrium is moderately dilated. LA Vol Index A/L is 42 mL/m2. Aorta: Normal sized sinuses of Valsalva and ascending aorta. Sinuses of Valsalva diameter is 3.2 cm. Ao ascending diameter is 3.3 cm. IVC/SVC: IVC diameter is normal and decreases greater than 50% during inspiration; therefore the estimated right atrial pressure is normal (~3 mmHg) I had a long discussion with the patient regarding the above findings reviewed treatment strategy including escalation of guideline directed medical therapy and the importance of cardiac rehab for his recovery. I suggested outpatient evaluation of ischemic heart disease (CTA), and possible genetic testing to look for a cause other than hypertensive cardiomyopathy. I recommended referral to the heart failure group for dose escalation and further evaluation. This patient's management is limited by the social issues detailed above. Rdaha Parikh MD [facility] 02/29/24 11:39 AM documented in this [facility]08-31-2024 History and physical note* Sherri Jeter MD - 02/28/2024 11:53 PM EDT History and Physical [facility] Carlo Medina : 1980 AGE 44 y.o. YEARS Note Date 02/28/2024 Primary Care Physician:No primary care provider on file. Phone None Fax None Current Providers as of 02/28/2024 PCP: not found Referring Provider: not found, starting on [facility] Feb 28, 2024 12:00 AM Admitting Provider: Sherri Jeter MD, (Active) Attending Provider: Vic Loaiza MD, starting on [facility] Feb 28, 2024 6:13 PM, ending on FriFeb 28, 2024 7:01 PM (Inactive) Attending Provider: Juan Carlos Le MD, starting on FriFeb 28, 2024 7:00 PM, ending on FriFeb 28, 2024 10:06 PM (Inactive) Attending Provider: Sherri Jeter MD, starting on [facility] Feb 28, 2024 8:49 PM (Active) Registered Nurse: Belkys Townsend RN, starting on FriFeb 28, 2024 6:26 PM, ending on FriFeb 28, 2024 10:06 PM (Inactive) Registered Nurse: Randy Ulloa RN, starting on [facility] Feb 28, 2024 10:14 PM (Active) Registered Nurse: Nirmala Hogan RN, starting on [facility] Feb 28, 2024 10:50 PM (Active) Chief Complaint: Shortness of Breath HPI: He reports he first noticed he was sob, about 6 days ago He felt he was breathing heavy He had a little cough He also had some chest tightness He describes his chest heaviness chest tightness in the center of his chest more like he could not take a deep breath He did not have any lower extremity edema or syncope He denies any prior heart or lung problems He denies any productive cough Review of Systems: General: Skin: HEENT: Cardiovascular Fever n Rashes n Difficulty chewing Chest Pain With coughing only Chills n Sores n Appetite Loss Chest Pressure Yes chest tightness Discomfort Fatigue y Epistaxis Orthopnea Sweats n Hearing loss Palpitations GI: Tinnitus GERD n Vision quality RESP: Abdominal Pain n : SOB/CARRERA y Nausea n Hematuria n Cough y Vomiting n Dysuria n Productive/Sputum n Hematemesis n NEURO: Urgency n Hemoptysis n Diarrhea n Headaches n Frequency n Wheezing n Constipation n Seizures n Times at night urinating Heamatochezia n Neuropathy n catheter present MSK: Melena Focal weakness n Hesitancy Focal Numbness n Incontinence Acute joint pain n Dizzy/Vertigo n Redness n Difficulty speaking Heme/Lymph Swelling n Difficulty walking Lymphadenopathy Myalgia n Ataxia Chronic joint pain History reviewed. No pertinent past medical history. He denies medical problems in the past History reviewed. No pertinent surgical history. No Known Allergies Medications Prior to Admission: He does not usually take medication Social History Social History Tobacco Use Smoking status: Never Smokeless tobacco: Never Substance Use Topics Alcohol use: Not on file Family History No family history on file. Physical Exam Temp (24hrs), Av.6 C (97.9 F), Min:36.4 C (97.6 F), Max:36.8 C (98.2 F) Body mass index is 27.05 kg/m .BMI Classification: Overweight (BMI 25.0-29.9) BP (!) 176/123 Pulse 111 Temp 36.4 C (97.6 F) (Temporal) Resp 24 Ht 6' 1 (1.854 m) Wt 205 lb (93 kg) SpO2 97% BMI 27.05 kg/m Pulse Ox: SpO2 Av.6 % Min: 96 % Max: 97 % SupplementalO2: General appearance: He is alert and oriented answering questions well resting in bed HEENT: Normal cephalic, atraumatic without obvious deformity. Pupils equal, round, and reactive to light. Extra ocular muscles intact. Conjunctivae/corneas clear. Neck: Supple, with full range of motion. No jugular venous distention. Trachea midline. No lymphadenopathy. Respiratory: Lungs with crackles in the bases, no wheezing Cardiovascular: Regular rate and rhythm I did not appreciate any murmurs Abdomen: Soft, non-tender, non-distended with normal bowel sounds. No rebound or guarding. Musculoskeletal: No clubbing, cyanosis or edema bilaterally. Full range of motion without deformity. Skin: Skin color, texture, turgor normal. No rashes or lesions. Neurologic: Neurovascularly intact without any focal sensory/motor deficits. Cranial nerves grosslyintact. Labs Admission on 02/28/2024 Component Date Value Heart Rate 02/28/2024 113 QRSD Interval 02/28/2024 99 QT Interval 02/28/2024 341 QTC Interval 02/28/2024 469 P [place] 02/28/2024 59 QRS [place] 02/28/2024 -16 T Wave [place] 02/28/2024 124 IN Interval 02/28/2024 145 D-DIMER, INNOVANCE 02/28/2024 1.45 (H) SODIUM 02/28/2024 138 POTASSIUM 02/28/2024 4.3 CHLORIDE 02/28/2024 105 CARBON DIOXIDE 02/28/2024 25 ANION GAP 02/28/2024 8 UREA NITROGEN 02/28/2024 20 CREATININE 02/28/2024 1.50 (H) GLUCOSE 02/28/2024 111 (H) CALCIUM 02/28/2024 8.8 AST (SGOT) 02/28/2024 39 ALT 02/28/2024 19 ALKALINE PHOSPHATASE 02/28/2024 83 ALBUMIN 02/28/2024 4.4 BILIRUBIN, TOTAL 02/28/2024 1.0 TOTAL PROTEIN 02/28/2024 7.8 eGFR 02/28/2024 57.8 (L) TROPONIN I 02/28/2024 0.019 Auto WBC 02/28/2024 6.6 RBC 02/28/2024 4.34 (L) Hemoglobin 02/28/2024 13.5 Hematocrit 02/28/2024 40.0 MCV 02/28/2024 92.2 MCH 02/28/2024 31.1 MCHC 02/28/2024 33.8 RDW 02/28/2024 11.7 Platelets 02/28/2024 279 MPV 02/28/2024 9.3 nRBC 02/28/2024 0.0 Neutrophils Relative 02/28/2024 65.0 Lymphocytes Relative 02/28/2024 26.3 Monocytes Relative 02/28/2024 6.2 Eosinophils Relative 02/28/2024 2.0 Basophils Relative 02/28/2024 0.3 Immature Grans % 02/28/2024 0.2 Neutrophils Absolute 02/28/2024 4.3 Lymphocytes Absolute 02/28/2024 1.7 Monocytes Absolute 02/28/2024 0.4 Eosinophils Absolute 02/28/2024 0.1 Basophils Absolute 02/28/2024 0.0 Immature Grans Absolute 02/28/2024 0.0 NT PRO BNP 02/28/2024 5,170 (H) SARS-CoV-2 02/28/2024 Not Detected Respiratory Syncytial Vi* 02/28/2024 Not Detected Influenza A 02/28/2024 Not Detected Influenza B 02/28/2024 Not Detected TROPONIN I 02/28/2024 0.019 THYROID STIMULATING HORM* 02/28/2024 1.375 EKG Encounter Date: 02/28/24 ECG 12 lead Result Value Heart Rate 113 QRSD Interval 99 QT Interval 341 QTC Interval 469 P [place] 59 QRS [place] -16 T Wave [place] 124 IN Interval 145 Impression Sinus tachycardia Probable left atrial enlargement Abnormal R-wave progression, late transition Left ventricular hypertrophy Abnormal T, consider ischemia, lateral leads ST elevation, consider anterior injury No old ekg available for comparison Electronically Signed On 02-28-2024 18:14:12 EDT by Vic Loaiza Scheduled PRN ondansetron, 4 mg, IntraVENous, Once PRN medications: hydrALAZINE Continuous Assessment/Plan and Medical Decision Making Chest tightness shortness of breath Workup at outside emergency room shows cardiomegaly with vascular congestion. He additionally has elevated BNP EKG with sinus tachycardia and LVH CTA of chest was negative for PE This is on the background what likely has been longstanding untreated hypertension per his history He denies any prior cardiac history he is not on meds at home At this time we will admit him for diuresis cardiology eval echocardiogram. Some type of cardiomyopathy either hypertrophic, or apical ballooning or some type of valve dysfunction or other structural heart disease is highest on the differential. Arrhythmia and/or ischemic heart disease also considered Current cardiac enzymes are not elevated Has a [place] 5170 He has been started on diuresis will treat him empirically with antiplatelet will check lipid profile Echocardiogram to assess heart function and structure likely the single best test to direct furtherplanning Elevated creatinine Baseline unknown He presents with creatinine 1.5 He is not known to have any problems urinating or kidney disease in the past He likely had uncontrolled hypertension at home and I suspect renal insufficiency could be secondary to that. But there is no baseline to go off of his he has not seen physicians recently Will need to monitor his renal function with anticipated diuresis for his heart heart failure above Hypertension Patient presents with elevated blood pressure. Will need medications and titration. However medications likely best titrated after echocardiogram results in order to put him on the best goal-directed therapy depending on his eventual diagnosis Currently as needed medications will be given he is being diuresed with furosemide Low sodium diet I discussed the plan with him in the room I discussed the need for admission with the emergency provider. -DVT prophylaxis: [x] Lovenox [] Heparin [] SCDs [x] Encourage ambulation [] Already on Anticoagulation [] Pharmocologic prophylaxis on hold to due risk bleed/procedure [] Low risk, ambulatory [] Both pharmacologic and mechanical contraindicated 02/28/2024 Carlo Medina [id number] Any scheduled follow up appointments No future appointments. Extended Emergency Contact Information Primary Emergency Contact: Indira Medina Mobile Relation: Sister Secondary Emergency Contact: Kaitlin Hicks Mobile Relation: Significant Other Portions of this note may be electronically transcribed. Please forward a copy of this H&P to the primary care physician. [facility] Work Phone: [phone]) 805-267708-31-2024 [facility]08-31-2024 History and physical note* Sherri Jeter MD - 02/28/2024 11:53 PM EDT History and Physical [facility] Carlo Medina : 1980 AGE 44 y.o. YEARS Note Date 02/28/2024 Primary Care Physician:No primary care provider on file. Phone None Fax None Current Providers as of 02/28/2024 PCP: not found Referring Provider: not found, starting on FriFeb 28, 2024 12:00 AM Admitting Provider: Sherri Jeter MD, (Active) Attending Provider: Vic Loaiza MD, starting on FriFeb 28, 2024 6:13 PM, ending on FriFeb 28, 2024 7:01 PM (Inactive) Attending Provider: Juan Carlos Le MD, starting on FriFeb 28, 2024 7:00 PM, ending on FriFeb 28, 2024 10:06 PM (Inactive) Attending Provider: Sherri Jeter MD, starting on FriFeb 28, 2024 8:49 PM (Active) Registered Nurse: Belkys Townsend RN, starting on Sat Feb 28, 2024 6:26 PM, ending on Sat Feb 28, 2024 10:06 PM (Inactive) Registered Nurse: Randy Ulloa RN, starting on Sat Feb 28, 2024 10:14 PM (Active) Registered Nurse: Nirmala Hogan RN, starting on Sat Feb 28, 2024 10:50 PM (Active) Chief Complaint: Shortness of Breath HPI: He reports he first noticed he was sob, about 6 days ago He felt he was breathing heavy He had a little cough He also had some chest tightness He describes his chest heaviness chest tightness in the center of his chest more like he could not take a deep breath He did not have any lower extremity edema or syncope He denies any prior heart or lung problems He denies any productive cough Review of Systems: General: Skin: HEENT: Cardiovascular Fever n Rashes n Difficulty chewing Chest Pain With coughing only Chills n Sores n Appetite Loss Chest Pressure Yes chest tightness Discomfort Fatigue y Epistaxis Orthopnea Sweats n Hearing loss Palpitations GI: Tinnitus GERD n Vision quality RESP: Abdominal Pain n : SOB/CARRERA y Nausea n Hematuria n Cough y Vomiting n Dysuria n Productive/Sputum n Hematemesis n NEURO: Urgency n Hemoptysis n Diarrhea n Headaches n Frequency n Wheezing n Constipation n Seizures n Times at night urinating Heamatochezia n Neuropathy n catheter present MSK: Melena Focal weakness n Hesitancy Focal Numbness n Incontinence Acute joint pain n Dizzy/Vertigo n Redness n Difficulty speaking Heme/Lymph Swelling n Difficulty walking Lymphadenopathy Myalgia n Ataxia Chronic joint pain History reviewed. No pertinent past medical history. He denies medical problems in the past History reviewed. No pertinent surgical history. No Known Allergies Medications Prior to Admission: He does not usually take medication Social History Social History Tobacco Use Smoking status: Never Smokeless tobacco: Never Substance Use Topics Alcohol use: Not on file Family History No family history on file. Physical Exam Temp (24hrs), Av.6 C (97.9 F), Min:36.4 C (97.6 F), Max:36.8 C (98.2 F) Body mass index is 27.05 kg/m .BMI Classification: Overweight (BMI 25.0-29.9) BP (!) 176/123 Pulse 111 Temp 36.4 C (97.6 F) (Temporal) Resp 24 Ht 6' 1 (1.854 m) Wt 205 lb (93 kg) SpO2 97% BMI 27.05 kg/m Pulse Ox: SpO2 Av.6 % Min: 96 % Max: 97 % SupplementalO2: General appearance: He is alert and oriented answering questions well resting in bed HEENT: Normal cephalic, atraumatic without obvious deformity. Pupils equal, round, and reactive to light. Extra ocular muscles intact. Conjunctivae/corneas clear. Neck: Supple, with full range of motion. No jugular venous distention. Trachea midline. No lymphadenopathy. Respiratory: Lungs with crackles in the bases, no wheezing Cardiovascular: Regular rate and rhythm I did not appreciate any murmurs Abdomen: Soft, non-tender, non-distended with normal bowel sounds. No rebound or guarding. Musculoskeletal: No clubbing, cyanosis or edema bilaterally. Full range of motion without deformity. Skin: Skin color, texture, turgor normal. No rashes or lesions. Neurologic: Neurovascularly intact without any focal sensory/motor deficits. Cranial nerves grosslyintact. Labs Admission on 02/28/2024 Component Date Value Heart Rate 02/28/2024 113 QRSD Interval 02/28/2024 99 QT Interval 02/28/2024 341 QTC Interval 02/28/2024 469 P [place] 02/28/2024 59 QRS [place] 02/28/2024 -16 T Wave [place] 02/28/2024 124 IN Interval 02/28/2024 145 D-DIMER, INNOVANCE 02/28/2024 1.45 (H) SODIUM 02/28/2024 138 POTASSIUM 02/28/2024 4.3 CHLORIDE 02/28/2024 105 CARBON DIOXIDE 02/28/2024 25 ANION GAP 02/28/2024 8 UREA NITROGEN 02/28/2024 20 CREATININE 02/28/2024 1.50 (H) GLUCOSE 02/28/2024 111 (H) CALCIUM 02/28/2024 8.8 AST (SGOT) 02/28/2024 39 ALT 02/28/2024 19 ALKALINE PHOSPHATASE 02/28/2024 83 ALBUMIN 02/28/2024 4.4 BILIRUBIN, TOTAL 02/28/2024 1.0 TOTAL PROTEIN 02/28/2024 7.8 eGFR 02/28/2024 57.8 (L) TROPONIN I 02/28/2024 0.019 Auto WBC 02/28/2024 6.6 RBC 02/28/2024 4.34 (L) Hemoglobin 02/28/2024 13.5 Hematocrit 02/28/2024 40.0 MCV 02/28/2024 92.2 MCH 02/28/2024 31.1 MCHC 02/28/2024 33.8 RDW 02/28/2024 11.7 Platelets 02/28/2024 279 MPV 02/28/2024 9.3 nRBC 02/28/2024 0.0 Neutrophils Relative 02/28/2024 65.0 Lymphocytes Relative 02/28/2024 26.3 Monocytes Relative 02/28/2024 6.2 Eosinophils Relative 02/28/2024 2.0 Basophils Relative 02/28/2024 0.3 Immature Grans % 02/28/2024 0.2 Neutrophils Absolute 02/28/2024 4.3 Lymphocytes Absolute 02/28/2024 1.7 Monocytes Absolute 02/28/2024 0.4 Eosinophils Absolute 02/28/2024 0.1 Basophils Absolute 02/28/2024 0.0 Immature Grans Absolute 02/28/2024 0.0 NT PRO BNP 02/28/2024 5,170 (H) SARS-CoV-2 02/28/2024 Not Detected Respiratory Syncytial Vi* 02/28/2024 Not Detected Influenza A 02/28/2024 Not Detected Influenza B 02/28/2024 Not Detected TROPONIN I 02/28/2024 0.019 THYROID STIMULATING HORM* 02/28/2024 1.375 EKG Encounter Date: 02/28/24 ECG 12 lead Result Value Heart Rate 113 QRSD Interval 99 QT Interval 341 QTC Interval 469 P [place] 59 QRS [place] -16 T Wave [place] 124 IN Interval 145 Impression Sinus tachycardia Probable left atrial enlargement Abnormal R-wave progression, late transition Left ventricular hypertrophy Abnormal T, consider ischemia, lateral leads ST elevation, consider anterior injury No old ekg available for comparison Electronically Signed On 02-28-2024 18:14:12 EDT by Vic Loaiza Scheduled PRN ondansetron, 4 mg, IntraVENous, Once PRN medications: hydrALAZINE Continuous Assessment/Plan and Medical Decision Making Chest tightness shortness of breath Workup at outside emergency room shows cardiomegaly with vascular congestion. He additionally has elevated BNP EKG with sinus tachycardia and LVH CTA of chest was negative for PE This is on the background what likely has been longstanding untreated hypertension per his history He denies any prior cardiac history he is not on meds at home At this time we will admit him for diuresis cardiology eval echocardiogram. Some type of cardiomyopathy either hypertrophic, or apical ballooning or some type of valve dysfunction or other structural heart disease is highest on the differential. Arrhythmia and/or ischemic heart disease also considered Current cardiac enzymes are not elevated Has a [place] 5170 He has been started on diuresis will treat him empirically with antiplatelet will check lipid profile Echocardiogram to assess heart function and structure likely the single best test to direct furtherplanning Elevated creatinine Baseline unknown He presents with creatinine 1.5 He is not known to have any problems urinating or kidney disease in the past He likely had uncontrolled hypertension at home and I suspect renal insufficiency could be secondary to that. But there is no baseline to go off of his he has not seen physicians recently Will need to monitor his renal function with anticipated diuresis for his heart heart failure above Hypertension Patient presents with elevated blood pressure. Will need medications and titration. However medications likely best titrated after echocardiogram results in order to put him on the best goal-directed therapy depending on his eventual diagnosis Currently as needed medications will be given he is being diuresed with furosemide Low sodium diet I discussed the plan with him in the room I discussed the need for admission with the emergency provider. -DVT prophylaxis: [x] Lovenox [] Heparin [] SCDs [x] Encourage ambulation [] Already on Anticoagulation [] Pharmocologic prophylaxis on hold to due risk bleed/procedure [] Low risk, ambulatory [] Both pharmacologic and mechanical contraindicated 02/28/2024 Carlo Medina [id number] Any scheduled follow up appointments No future appointments. Extended Emergency Contact Information Primary Emergency Contact: AdamDustyIndiar Mobile Relation: Sister Secondary Emergency Contact: Kaitlin Hicks Mobile Relation: Significant Other Portions of this note may be electronically transcribed. Please forward a copy of this H&P to the primary care physician. documented in this [facility]SD[facility] [id number] Emergency department Note* Belkys Townsend RN - 02/28/2024 9:[address] Le, pt ok to go to [facility] with IV in arm, 2 Jose RN aware, pt departing this facility now and instructed to go straight to [facility], as pt declined EMS transport to [facility]. 2 Jose called at this time and notified pt is on his way there. Belkys Townsend RN 02/28/242130 [id number] Emergency department Note* Belkys Townsend RN - 02/28/2024 9:[address] Le, pt ok to go to [facility] with IV in arm, 2 Jose RN aware, pt departing this facility now and instructed to go straight to [facility], as pt declined EMS transport to [facility]. 2 Jose called at this time and notified pt is on his way there. Belkys Townsend RN 02/28/242130 * Belkys Townsend RN - 02/28/2024 9:17 PM EDT Report called to 2 Jose Townsend RN 02/28/242116 * Vic Loaiza MD - 02/28/2024 5:50 PM EDT EMERGENCY DEPARTMENT ENCOUNTER Pt Name: Carlo Medina Birthdate 1980 Date of evaluation: 02/28/2024 ED Provider: Vic Loaiza MD CHIEF COMPLAINT Chief Complaint Patient presents with Shortness of Breath HISTORY OF PRESENT ILLNESS (Location/Symptom, Timing/Onset, Context/Setting, Quality, Duration, Modifying Factors, Severity) Note limiting factors. I wore appropriate PPE for the entirety of this encounter. HPI Carol Medina is a 44 y.o. who presents to the emergency department with shortness of breath, he denies any fevers, he had a dry cough, he does not have a PCP, he had a little bit of pleuritic pain in the middle of his chest, only risk factor but he is aware of is that he recently drove with a friend to [place], they did stop on the way there, was 3 and half hours of driving. And they walked a lot while they were there he says. He denies any leg swelling or leg pain. Nursing Notes were reviewed. Limitations to history: None Outside historians: Significant other REVIEW OF SYSTEMS Review of Systems Pertinent positives and negatives as per HPI PAST MEDICAL HISTORY History reviewed. No pertinent past medical history. SURGICAL HISTORY History reviewed. No pertinent surgical history. CURRENT MEDICATIONS Previous Medications No medications on file ALLERGIES Patient has no known allergies. FAMILY HISTORY No family history on file. SOCIAL HISTORY PHYSICAL EXAM ED Triage Vitals [02/28/24 1756] Temp Heart Rate Resp BP 36.8 C (98.2 F) (!) 112 26 (!) 168/123 SpO2 Temp Source Heart Rate Source Patient Position 97 % Oral -- -- BP Location FiO2 (%) -- -- Physical Exam No unilateral leg swelling, heart mildly tachycardic, lungs are clear to auscultation bilaterally DIAGNOSTIC RESULTS RADIOLOGY (Per Emergency Physician): Interpretation per the Radiologist below, if available at the time of this note: XR chest 1 view (Results Pending) LABS: Labs Reviewed SARS-COV-2, FLU A/B, AND RSV COMBO D-DIMER,QUANTITATIVE COMPREHENSIVE METABOLIC PANEL TROPONIN, WITH SERIAL REFLEX CBC WITH AUTO DIFFERENTIAL NT PRO BNP All other labs were within normal range or not returned as of this dictation. EMERGENCY DEPARTMENT COURSE and DIFFERENTIAL DIAGNOSIS/MDM: Vitals: Vitals: 02/28/24 1756 BP: (!) 168/123 Pulse: (!) 112 Resp: 26 Temp: 36.8 C (98.2 F) TempSrc: Oral SpO2: 97% Weight: 93 kg (205 lb) Height: 1.854 m (6' 1) Medications - No data to display SCREENINGS PROCEDURES: Unless otherwise noted below, none Procedures CRITICAL CARE TIME FINAL IMPRESSION No diagnosis found. DISPOSITION PATIENT REFERRED TO: No follow-up provider specified. DISCHARGE MEDICATIONS: New Prescriptions No medications on file (Comment: Please note this report has been produced using speech recognition software and may contain errors related to that system including errors in grammar, punctuation, and spelling, as well as words and phrases that may be inappropriate. If there are any questions or concerns please feel freeto contact the dictating provider for clarification.) Vic Loaiza MD (electronically signed) Emergency Medicine Provider Vic Loaiza MD 02/28/241901 * Juan Carlos Le MD - 02/28/2024 5:50 PM EDT THIS NOTE CONTAINS PATIENT DISPOSITION I, DR. JUAN CARLOS LE, AM THE [employer] CUTTER OF RECORD. PATIENT WAS SIGNED OUT TO ME BY DR. Loaiza. Please see his/her initial documentation for details of the patient's initial ED presentation, physical exam and completed studies. In brief, patient has new onset shortness of breath, chest pain, hypertension, dyspnea, no leg edema but endorses orthopnea. He appears to have new onset CHF, see the results of the workup below Patient is a history of hypertension, and admits that it is not terribly well- controlled. He has never been diagnosed with congestive heart failure previously, he has no history of coronary artery disease. He has no history of pulmonary embolism. He does not smoke. He does not take Lasix or any other diuretics. He endorses about 5 days of shortness of breath orthopnea dyspnea and decreased exercise tolerance and chest tightness. He is hypertensive in the 150s to 160s systolic, he is tachycardicin the 110s to 120s. General: WDWN adult in NAD. Non-toxic appearing HENT: Head NCAT, EOMI with no erythema, swelling or discharge. Oropharyngeal mucus membranes moist,pink, no exudate Neck: Full ROM, supple, no rigidity Cardio: Hypertensive, nl s1 s2 no m/r/g, extremities warm, dry, well perfused, non-edematous, 2+ bilateral radial pulses, 2+ bilateral DP pulses Lungs: Bibasilar crackles present. Bilateral middle and bilateral upper lung hernandez are comparatively clear. No cough no cyanosis no retractions. Respiratory rate 22 to 24 breaths/min with SaO2 96% on room air. Abdomen: Soft, NT, ND, non-rigid, BS x 4 normal. No palpable HSM. Skin: Warm, dry, pink, no rashes, bruising, or lacerations, no petechiae, no purpura Neuro: Alert, oriented, mentating normally Normal 5/5 strength and normal sensation all 4 extremities Cranial nerves II through XII normal Patient appears to have new onset congestive heart failure, (more likely left- sided given that he has no leg edema or abdominal swelling) he has bibasilar Rales, he has cardiomegaly on his chest x-ray and he has dyspnea and tachycardia. Decision was made to give patient IV Lasix, perform a CTA chest to evaluate for the chest pain shortness of breath and positive D-dimer, patient will need to be admitted to the hospital for cardiology consultation and an echocardiogram for his new onset pulmonary edema. No indication for noninvasive positive pressure ventilation or endotracheal intubation at this time but we will monitor patient carefully in the ED. Metabolic panel shows no metabolic acidosis, suboptimal kidney function with a creatinine 1.50, glucose within normal limits Sodium potassium calcium all normal Troponin #1 within normal limits at 0.019 BNP elevated at 5170 concerning for CHF. No old value to compare to. Patient would benefit from an echocardiogram Normal white blood cell count Not anemic Normal platelet count COVID-19 negative Influenza negative RSV negative D-dimer positive at 1.45, CTA chest ordered to rule out PE Chest x-ray shows cardiomegaly with pulmonary vascular congestion and suspected bilateral perihilarinfiltrates. Interpreted by me. CTA chest shows cardiomegaly and pulmonary vascular congestion with infiltrates. Bilateral small pleural effusions right greater than left. Peribronchial wall thickening concerning for bronchiolitis.No PE most importantly a ball. Small hiatal hernia. Interpreted by me. On reassessment, patient is saturating in the upper 90s, respiratory rate in the mid 20s. Low-gradetachycardia persists. However there is no indication for noninvasive positive pressure ventilation or endotracheal intubation at this time. I informed the patient of the results of workup and plan ofcare and he agrees to inpatient admission for likely cardiology consult and echocardiogram. He may also need to have his hypertension treated as increased afterload could be driving his overall fluidoverload. There is no indication for admission to the CCU at this time. Hospitalist service consulted for admission Dr. Jeter accepted patient to his service Disposition: Admitted Clinical impression: Shortness of breath, congestive heart failure, positive D- dimer, chest pain Juan Carlos Le MD 02/28/242052 * Belkys Townsend RN - 02/28/2024 5:50 PM EDT Pt presents to ED for c/o SOB since Friday mostly at night while laying in bed. Pt drove to [place] on 02/13 there and back in one day. Pt states he was told a long time ago that he had high blood pressure but never followed up for it or took medicine for it and hasn't been to the doctor in a long time. Pt is hypertensive, tachypneic and tachycardic at the time of triage. documented in this [facility]08-31-2024 Emergency department Note* Belkys Townsend RN - 02/28/2024 9:17 PM EDT Report called to 2 [facility] CRISTINE Townsend RN 02/28/242116 [id number] NoteSinus tachycardia Probable left atrial enlargement Abnormal R-wave progression, late transition Left ventricular hypertrophy Abnormal T, consider ischemia, lateral leads ST elevation, consider anterior injury No old ekg available for comparison Electronically Signed On 02-28-2024 18:14:12 EDT by Vic Alicia COLBY 02-28-2024 NoteSinus tachycardia Probable left atrial enlargement Abnormal R-wave progression, late transition Left ventricular hypertrophy Abnormal T, consider ischemia, lateral leads ST elevation, consider anterior injury No old ekg available for comparison Electronically Signed On 02-28-2024 18:14:12 EDT by Vic Alicia COLBY 02-28-2024 Emergency department Triage note* Belkys Townsend RN - 02/28/2024 5:50 PM EDT Pt presents to ED for c/o SOB since Friday mostly at night while laying in bed. [place] there and back in one day. Pt states he was told a long time ago that he had high blood pressure but never followed up for it or took medicine for it and hasn't been to the doctor in a long time. Pt is hypertensive, tachypneic and tachycardic at the time of triage. [id number] Emergency [facility]* Vic Loaiza MD - 02/28/2024 5:50 PM EDT EMERGENCY DEPARTMENT ENCOUNTER Pt Name: Carlo Medina Birthdate 1980 Date of evaluation: 02/28/2024 ED Provider: Vic Loaiza MD CHIEF COMPLAINT Chief Complaint Patient presents with Shortness of Breath HISTORY OF PRESENT ILLNESS (Location/Symptom, Timing/Onset, Context/Setting, Quality, Duration, Modifying Factors, Severity) Note limiting factors. I wore appropriate PPE for the entirety of this encounter. HPI Carol Medina is a 44 y.o. who presents to the emergency department with shortness of breath, he denies any fevers, he had a dry cough, he does not have a PCP, he had a little bit of pleuritic pain in the middle of his chest, only risk factor but he is aware of is that he recently drove with a friend to [place], they did stop on the way there, was 3 and half hours of driving. And they walked a lot while they were there he says. He denies any leg swelling or leg pain. Nursing Notes were reviewed. Limitations to history: None Outside historians: Significant other REVIEW OF SYSTEMS Review of Systems Pertinent positives and negatives as per HPI PAST MEDICAL HISTORY History reviewed. No pertinent past medical history. SURGICAL HISTORY History reviewed. No pertinent surgical history. CURRENT MEDICATIONS Previous Medications No medications on file ALLERGIES Patient has no known allergies. FAMILY HISTORY No family history on file. SOCIAL HISTORY PHYSICAL EXAM ED Triage Vitals [02/28/24 1756] Temp Heart Rate Resp BP 36.8 C (98.2 F) (!) 112 26 (!) 168/123 SpO2 Temp Source Heart Rate Source Patient Position 97 % Oral -- -- BP Location FiO2 (%) -- -- Physical Exam No unilateral leg swelling, heart mildly tachycardic, lungs are clear to auscultation bilaterally DIAGNOSTIC RESULTS RADIOLOGY (Per Emergency Physician): Interpretation per the Radiologist below, if available at the time of this note: XR chest 1 view (Results Pending) LABS: Labs Reviewed SARS-COV-2, FLU A/B, AND RSV COMBO D-DIMER,QUANTITATIVE COMPREHENSIVE METABOLIC PANEL TROPONIN, WITH SERIAL REFLEX CBC WITH AUTO DIFFERENTIAL NT PRO BNP All other labs were within normal range or not returned as of this dictation. EMERGENCY DEPARTMENT COURSE and DIFFERENTIAL DIAGNOSIS/MDM: Vitals: Vitals: 02/28/24 1756 BP: (!) 168/123 Pulse: (!) 112 Resp: 26 Temp: 36.8 C (98.2 F) TempSrc: Oral SpO2: 97% Weight: 93 kg (205 lb) Height: 1.854 m (6' 1) Medications - No data to display SCREENINGS PROCEDURES: Unless otherwise noted below, none Procedures CRITICAL CARE TIME FINAL IMPRESSION No diagnosis found. DISPOSITION PATIENT REFERRED TO: No follow-up provider specified. DISCHARGE MEDICATIONS: New Prescriptions No medications on file (Comment: Please note this report has been produced using speech recognition software and may contain errors related to that system including errors in grammar, punctuation, and spelling, as well as words and phrases that may be inappropriate. If there are any questions or concerns please feel freeto contact the dictating provider for clarification.) Vic Loaiza MD (electronically signed) Emergency Medicine Provider Vic Loaiza MD 02/28/241901 [facility] Phone: [phone] Physician Emergency department Note* Juan Carlos Le MD - 02/28/2024 5:50 PM EDT THIS NOTE CONTAINS PATIENT DISPOSITION I, DR. JUAN CARLOS LE, AM THE [employer] CUTTER OF RECORD. PATIENT WAS SIGNED OUT TO ME BY DR. Loaiza. Please see his/her initial documentation for details of the patient's initial ED presentation, physical exam and completed studies. In brief, patient has new onset shortness of breath, chest pain, hypertension, dyspnea, no leg edema but endorses orthopnea. He appears to have new onset CHF, see the results of the workup below Patient is a history of hypertension, and admits that it is not terribly well- controlled. He has never been diagnosed with congestive heart failure previously, he has no history of coronary artery disease. He has no history of pulmonary embolism. He does not smoke. He does not take Lasix or any other diuretics. He endorses about 5 days of shortness of breath orthopnea dyspnea and decreased exercise tolerance and chest tightness. He is hypertensive in the 150s to 160s systolic, he is tachycardicin the 110s to 120s. General: WDWN adult in NAD. Non-toxic appearing HENT: Head NCAT, EOMI with no erythema, swelling or discharge. Oropharyngeal mucus membranes moist,pink, no exudate Neck: Full ROM, supple, no rigidity Cardio: Hypertensive, nl s1 s2 no m/r/g, extremities warm, dry, well perfused, non-edematous, 2+ bilateral radial pulses, 2+ bilateral DP pulses Lungs: Bibasilar crackles present. Bilateral middle and bilateral upper lung hernandez are comparatively clear. No cough no cyanosis no retractions. Respiratory rate 22 to 24 breaths/min with SaO2 96% on room air. Abdomen: Soft, NT, ND, non-rigid, BS x 4 normal. No palpable HSM. Skin: Warm, dry, pink, no rashes, bruising, or lacerations, no petechiae, no purpura Neuro: Alert, oriented, mentating normally Normal 5/5 strength and normal sensation all 4 extremities Cranial nerves II through XII normal Patient appears to have new onset congestive heart failure, (more likely left- sided given that he has no leg edema or abdominal swelling) he has bibasilar Rales, he has cardiomegaly on his chest x-ray and he has dyspnea and tachycardia. Decision was made to give patient IV Lasix, perform a CTA chest to evaluate for the chest pain shortness of breath and positive D-dimer, patient will need to be admitted to the hospital for cardiology consultation and an echocardiogram for his new onset pulmonary edema. No indication for noninvasive positive pressure ventilation or endotracheal intubation at this time but we will monitor patient carefully in the ED. Metabolic panel shows no metabolic acidosis, suboptimal kidney function with a creatinine 1.50, glucose within normal limits Sodium potassium calcium all normal Troponin #1 within normal limits at 0.019 BNP elevated at 5170 concerning for CHF. No old value to compare to. Patient would benefit from an echocardiogram Normal white blood cell count Not anemic Normal platelet count COVID-19 negative Influenza negative RSV negative D-dimer positive at 1.45, CTA chest ordered to rule out PE Chest x-ray shows cardiomegaly with pulmonary vascular congestion and suspected bilateral perihilarinfiltrates. Interpreted by me. CTA chest shows cardiomegaly and pulmonary vascular congestion with infiltrates. Bilateral small pleural effusions right greater than left. Peribronchial wall thickening concerning for bronchiolitis.No PE most importantly a ball. Small hiatal hernia. Interpreted by me. On reassessment, patient is saturating in the upper 90s, respiratory rate in the mid 20s. Low-gradetachycardia persists. However there is no indication for noninvasive positive pressure ventilation or endotracheal intubation at this time. I informed the patient of the results of workup and plan ofcare and he agrees to inpatient admission for likely cardiology consult and echocardiogram. He may also need to have his hypertension treated as increased afterload could be driving his overall fluidoverload. There is no indication for admission to the CCU at this time. Hospitalist service consulted for admission Dr. Jeter accepted patient to his service Disposition: Admitted Clinical impression: Shortness of breath, congestive heart failure, positive D- dimer, chest pain Juan Carlos Le MD 02/28/242052 [facility] Shortness of breath- Primary Shortness of breath Congestive heart failure, unspecified HF chronicity, unspecified heart failure type (HCC) Positive D dimer Abnormal coagulation profile Chest pain, unspecified type Hypertension, unspecified type [facility] Diagnosis Shortness of breath- Primary Shortness of breath Acute on chronic congestive heart failure, unspecified heart failure type (HCC) Hypoxia Hypoxemia Pleural effusion Unspecified pleural effusion [facility]* Diagnosis Pulmonary vascular congestion- Primary Chest pain, unspecified type Acute cough Sore throat Acute pharyngitis Positive D dimer Abnormal coagulation profile Congestive heart failure, unspecified HF chronicity, unspecified heart failure type (HCC) Pulmonary vascular congestion Orthopnea Short of breath on exertion Congestive heart failure, unspecified HF chronicity, unspecified heart failure type (HCC) [facility] Diagnosis Metabolic acidosis- Primary Acidosis Metabolic acidosis Acidosis HFrEF (heart failure with reduced ejection fraction) (HCC) Acute cholecystitis without calculus Acute cholecystitis Moderate malnutrition (CMS/HCC) (HCC) [facility]* Diagnosis Edema of left lower extremity- Primary [facility]* Diagnosis Essential hypertension- Primary Unspecified essential hypertension Congestive heart failure, unspecified HF chronicity, unspecified heart failure type (HCC) Elevated liver enzymes Other nonspecific abnormal serum enzyme levels Chronic kidney disease, unspecified CKD stage [facility]* Diagnosis Congestive heart failure, unspecified HF chronicity, unspecified heart failure type (HCC)- Primary [facility]* Diagnosis Acute HFrEF (heart failure with reduced ejection fraction) (HCC)- Primary Acute exacerbation of chronic heart failure (HCC) Leg swelling Swelling of limb Elevated liver enzymes Other nonspecific abnormal serum enzyme levels Essential hypertension Unspecified essential hypertension Shortness of breath Stage 3b chronic kidney disease (HCC) Pulmonary vascular congestion Elevated liver enzymes Other nonspecific abnormal serum enzyme levels Shortness of breath CKD (chronic kidney disease) Chronic kidney disease, unspecified Leg swelling Swelling of limb Pulmonary vascular congestion Noncompliance Essential hypertension Unspecified essential hypertension History of left bundle branch block (LBBB) Sinus tachycardia Other specified cardiac dysrhythmias Acute exacerbation of chronic heart failure (HCC) Pulmonary vascular congestion [facility]* Diagnosis Chronic systolic heart failure (HCC)- Primary Chronic systolic heart failure Essential hypertension Unspecified essential hypertension Chronic kidney disease, unspecified CKD stage [facility]* Diagnosis Acute kidney injury superimposed on CKD (HCC) (HCC)- Primary Acute kidney injury superimposed on CKD (HCC) (HCC) Transaminitis Nonspecific elevation of levels of transaminase or lactic acid dehydrogenase (LDH) History of CHF (congestive heart failure) Personal history of other diseases of circulatory system HFrEF (heart failure with reduced ejection fraction) (HCC) [facility]* Diagnosis Acute systolic heart failure (HCC)- Primary Acute systolic heart failure Essential hypertension Unspecified essential hypertension Chronic systolic heart failure (HCC) Chronic systolic heart failure Chronic kidney disease, unspecified CKD stage [facility]* Diagnosis Chronic systolic heart failure (HCC)- Primary Chronic systolic heart failure [facility]* Diagnosis NSTEMI (non-ST elevated myocardial infarction) (HCC)- Primary Acute myocardial infarction, subendocardial infarction, episode of care unspecified NSTEMI (non-ST elevated myocardial infarction) (HCC) Acute myocardial infarction, subendocardial infarction, episode of care unspecified Abdominal pain, unspecified abdominal location HFrEF (heart failure with reduced ejection fraction) ([facility]) Cardiorenal syndrome with renal failure, stage 1-4 or unspecified chronic kidney disease, with heart failure (HCC) Biventricular heart failure (HCC) Congestive heart failure, unspecified Chronic pulmonary embolism without acute cor pulmonale, unspecified pulmonary embolism type ([facility]) [facility]* Diagnosis HFrEF (heart failure with reduced ejection fraction) (HCC)- Primary Acute HFrEF (heart failure with reduced ejection fraction) (HCC) Essential hypertension Unspecified essential hypertension Stage 3a chronic kidney disease (HCC) Noncompliance [facility]* Diagnosis Acute kidney injury (HCC)- Primary Acute kidney injury (HCC) History of congestive heart failure Personal history of other diseases of circulatory system Bilateral lower extremity edema [place] (acute kidney injury) (HCC) Acute HFrEF (heart failure with reduced ejection fraction) (HCC) Noncompliance Essential hypertension Unspecified essential hypertension Sinus tachycardia Other specified cardiac dysrhythmias Acute deep vein thrombosis (DVT) of lower extremity (HCC) [place] (acute kidney injury) (HCC) [facility]* Diagnosis HFrEF (heart failure with reduced ejection fraction) (HCC)- Primary Essential hypertension Unspecified essential hypertension Acute deep vein thrombosis (DVT) of other specified vein of both lower extremities ([facility]) [facility]* Diagnosis HFrEF (heart failure with reduced ejection fraction) (HCC)- Primary Essential hypertension Unspecified essential hypertension Acute deep vein thrombosis (DVT) of other specified vein of both lower extremities (HCC) [place] (acute kidney injury) (HCC)- Primary Shortness of breath Chest pain, unspecified type [facility]* Diagnosis Chronic systolic heart failure (HCC)- Primary Chronic systolic heart failure Essential hypertension Unspecified essential hypertension Chronic kidney disease, unspecified CKD stage HFrEF (heart failure with reduced ejection fraction) (HCC)- Primary Essential hypertension Unspecified essential hypertension Acute deep vein thrombosis (DVT) of other specified vein of both lower extremities (HCC) [facility]* Diagnosis HFrEF (heart failure with reduced ejection fraction) (HCC)- Primary Essential hypertension Unspecified essential hypertension Acute deep vein thrombosis (DVT) of other specified vein of both lower extremities (HCC) Acute kidney injury superimposed on CKD (HCC) (HCC)- Primary Acute kidney injury superimposed on CKD (HCC) (HCC) Congestive heart failure, unspecified HF chronicity, unspecified heart failure type ([facility]) documented in this encounter [facility] note* Diagnosis Chronic systolic heart failure (HCC)- Primary Chronic systolic heart failure Essential hypertension Unspecified essential hypertension Chronic kidney disease, unspecified CKD stage HFrEF (heart failure with reduced ejection fraction) (HCC)- Primary Essential hypertension Unspecified essential hypertension Acute deep vein thrombosis (DVT) of other specified vein of both lower extremities ([facility]) [facility]* Diagnosis HFrEF (heart failure with reduced ejection fraction) (HCC)- Primary Essential hypertension Unspecified essential hypertension Acute deep vein thrombosis (DVT) of other specified vein of both lower extremities (HCC) Biventricular congestive heart failure (HCC)- Primary Congestive heart failure, unspecified Generalized abdominal pain Abdominal pain, generalized Chest pain, unspecified type [facility]* Diagnosis HFrEF (heart failure with reduced ejection fraction) (HCC)- Primary Essential hypertension Unspecified essential hypertension Acute deep vein thrombosis (DVT) of other specified vein of both lower extremities ([facility]) Elevated serum creatinine- Primary Other nonspecific findings on examination of blood Elevated brain natriuretic peptide (BNP) level documented [facility]* Diagnosis Chest pain, unspecified type- Primary Nausea vomiting and diarrhea Diarrhea [facility]* Diagnosis HFrEF (heart failure with reduced ejection fraction) (HCC)- Primary Pneumonia of right lower lobe due to infectious organism Hypervolemia, unspecified hypervolemia type HFrEF (heart failure with reduced ejection fraction) (HCC) Acute kidney injury superimposed on CKD (HCC) Tachycardia, unspecified Nonspecific intraventricular block Other heart block Abnormal electrocardiogram (ECG) (EKG) Cardiogenic shock (HCC) [R57.0] Cardiogenic shock Acute deep vein thrombosis (DVT) of distal vein of lower extremity, unspecified laterality (HCC) Pneumonia of right lower lobe due to infectious organism Acute kidney injury superimposed on CKD (HCC) [facility] Cough, unspecified type- Primary Pneumonia of right lower lobe due to infectious organism [facility]* Diagnosis Acute on chronic HFrEF (heart failure with reduced ejection fraction) (HCC)- Primary Pneumonia of right lower lobe due to infectious organism Cardiogenic shock (HCC) Cardiogenic shock Pneumonia due to infectious organism, unspecified laterality, unspecified part of lung Tachycardia, unspecified Unspecified right bundle-branch block Abnormal electrocardiogram (ECG) (EKG) Nonspecific intraventricular block Other heart block Bradycardia, unspecified Cardiomegaly Left bundle-branch block, unspecified Acute kidney injury superimposed on stage 3b chronic kidney disease [N17.9, N18.32] Acute on chronic HFrEF (heart failure with reduced ejection fraction) (HCC) [I50.23] Hypokalemia [E87.6] Hypopotassemia Hypomagnesemia [E83.42] Disorders of magnesium metabolism Acute deep vein thrombosis (DVT) of other vein of lower extremity, unspecified laterality (HCC) [I82.409] Cirrhosis of liver without ascites, unspecified hepatic cirrhosis type (HCC) [K74.60] Elevated liver enzymes Nonspecific elevation of levels of transaminase or lactic acid dehydrogenase (LDH) SOB (shortness of breath) Shortness of breath Cardiogenic shock (HCC) Cardiogenic shock Pneumonia of right lower lobe due to infectious organism Acute kidney injury superimposed on stage 3b chronic kidney disease Cirrhosis (HCC) Cirrhosis of liver without mention of alcohol Hypomagnesemia Disorders of magnesium metabolism Hypokalemia Hypopotassemia Acute deep vein thrombosis (DVT) of lower extremity (HCC) [facility]* Diagnosis Acute on chronic HFrEF (heart failure with reduced ejection fraction) (HCC)- Primary Pneumonia of right lower lobe due to infectious organism Cardiogenic shock (HCC) Cardiogenic shock Pneumonia due to infectious organism, unspecified laterality, unspecified part of lung Tachycardia, unspecified Unspecified right bundle-branch block Abnormal electrocardiogram (ECG) (EKG) Nonspecific intraventricular block Other heart block Bradycardia, unspecified Cardiomegaly Left bundle-branch block, unspecified Acute kidney injury superimposed on stage 3b chronic kidney disease [N17.9, N18.32] Acute on chronic HFrEF (heart failure with reduced ejection fraction) (HCC) [I50.23] Hypokalemia [E87.6] Hypopotassemia Hypomagnesemia [E83.42] Disorders of magnesium metabolism Acute deep vein thrombosis (DVT) of other vein of lower extremity, unspecified laterality (HCC) [I82.409] Cirrhosis of liver without ascites, unspecified hepatic cirrhosis type (HCC) [K74.60] Elevated liver enzymes Nonspecific elevation of levels of transaminase or lactic acid dehydrogenase (LDH) SOB (shortness of breath) Shortness of breath Cardiogenic shock (HCC) Cardiogenic shock Pneumonia of right lower lobe due to infectious organism Acute kidney injury superimposed on stage 3b chronic kidney disease Cirrhosis (HCC) Cirrhosis of liver without mention of alcohol Hypomagnesemia Disorders of magnesium metabolism Hypokalemia Hypopotassemia Acute deep vein thrombosis (DVT) of lower extremity (HCC) Acute deep vein thrombosis (DVT) of distal vein of lower extremity, unspecified laterality (HCC)- Primary [facility] Diagnosis Acute on chronic HFrEF (heart failure with reduced ejection fraction) (HCC)- Primary Pneumonia of right lower lobe due to infectious organism Cardiogenic shock (HCC) Cardiogenic shock Pneumonia due to infectious organism, unspecified laterality, unspecified part of lung Tachycardia, unspecified Unspecified right bundle-branch block Abnormal electrocardiogram (ECG) (EKG) Nonspecific intraventricular block Other heart block Bradycardia, unspecified Cardiomegaly Left bundle-branch block, unspecified Acute kidney injury superimposed on stage 3b chronic kidney disease [N17.9, N18.32] Acute on chronic HFrEF (heart failure with reduced ejection fraction) (HCC) [I50.23] Hypokalemia [E87.6] Hypopotassemia Hypomagnesemia [E83.42] Disorders of magnesium metabolism Acute deep vein thrombosis (DVT) of other vein of lower extremity, unspecified laterality (HCC) [I82.409] Cirrhosis of liver without ascites, unspecified hepatic cirrhosis type (HCC) [K74.60] Elevated liver enzymes Nonspecific elevation of levels of transaminase or lactic acid dehydrogenase (LDH) SOB (shortness of breath) Shortness of breath Cardiogenic shock (HCC) Cardiogenic shock Pneumonia of right lower lobe due to infectious organism Acute kidney injury superimposed on stage 3b chronic kidney disease Cirrhosis (HCC) Cirrhosis of liver without mention of alcohol Hypomagnesemia Disorders of magnesium metabolism Hypokalemia Hypopotassemia Acute deep vein thrombosis (DVT) of lower extremity (HCC) Acute deep vein thrombosis (DVT) of distal vein of lower extremity, unspecified laterality (HCC)- Primary [facility] Diagnosis Acute on chronic HFrEF (heart failure with reduced ejection fraction) (HCC)- Primary Pneumonia of right lower lobe due to infectious organism Cardiogenic shock (HCC) Cardiogenic shock Pneumonia due to infectious organism, unspecified laterality, unspecified part of lung Tachycardia, unspecified Unspecified right bundle-branch block Abnormal electrocardiogram (ECG) (EKG) Nonspecific intraventricular block Other heart block Bradycardia, unspecified Cardiomegaly Left bundle-branch block, unspecified Acute kidney injury superimposed on stage 3b chronic kidney disease [N17.9, N18.32] Acute on chronic HFrEF (heart failure with reduced ejection fraction) (HCC) [I50.23] Hypokalemia [E87.6] Hypopotassemia Hypomagnesemia [E83.42] Disorders of magnesium metabolism Acute deep vein thrombosis (DVT) of other vein of lower extremity, unspecified laterality (HCC) [I82.409] Cirrhosis of liver without ascites, unspecified hepatic cirrhosis type (HCC) [K74.60] Elevated liver enzymes Nonspecific elevation of levels of transaminase or lactic acid dehydrogenase (LDH) SOB (shortness of breath) Shortness of breath Cardiogenic shock (HCC) Cardiogenic shock Pneumonia of right lower lobe due to infectious organism Acute kidney injury superimposed on stage 3b chronic kidney disease Cirrhosis (HCC) Cirrhosis of liver without mention of alcohol Hypomagnesemia Disorders of magnesium metabolism Hypokalemia Hypopotassemia Acute deep vein thrombosis (DVT) of lower extremity (HCC) Acute deep vein thrombosis (DVT) of distal vein of lower extremity, unspecified laterality (HCC)- [facility] Diagnosis Acute on chronic HFrEF (heart failure with reduced ejection fraction) (HCC)- Primary Pneumonia of right lower lobe due to infectious organism Cardiogenic shock (HCC) Cardiogenic shock Pneumonia due to infectious organism, unspecified laterality, unspecified part of lung Tachycardia, unspecified Unspecified right bundle-branch block Abnormal electrocardiogram (ECG) (EKG) Nonspecific intraventricular block Other heart block Bradycardia, unspecified Cardiomegaly Left bundle-branch block, unspecified Acute kidney injury superimposed on stage 3b chronic kidney disease [N17.9, N18.32] Acute on chronic HFrEF (heart failure with reduced ejection fraction) (HCC) [I50.23] Hypokalemia [E87.6] Hypopotassemia Hypomagnesemia [E83.42] Disorders of magnesium metabolism Acute deep vein thrombosis (DVT) of other vein of lower extremity, unspecified laterality (HCC) [I82.409] Cirrhosis of liver without ascites, unspecified hepatic cirrhosis type (HCC) [K74.60] Elevated liver enzymes Nonspecific elevation of levels of transaminase or lactic acid dehydrogenase (LDH) SOB (shortness of breath) Shortness of breath Cardiogenic shock (HCC) Cardiogenic shock Pneumonia of right lower lobe due to infectious organism Acute kidney injury superimposed on stage 3b chronic kidney disease Cirrhosis (HCC) Cirrhosis of liver without mention of alcohol Hypomagnesemia Disorders of magnesium metabolism Hypokalemia Hypopotassemia Acute deep vein thrombosis (DVT) of lower extremity (HCC) Screening for colorectal cancer- Primary Special screening for malignant neoplasms, colon [facility] Diagnosis Acute on chronic HFrEF (heart failure with reduced ejection fraction) (HCC)- Primary Pneumonia of right lower lobe due to infectious organism Cardiogenic shock (HCC) Cardiogenic shock Pneumonia due to infectious organism, unspecified laterality, unspecified part of lung Tachycardia, unspecified Unspecified right bundle-branch block Abnormal electrocardiogram (ECG) (EKG) Nonspecific intraventricular block Other heart block Bradycardia, unspecified Cardiomegaly Left bundle-branch block, unspecified Acute kidney injury superimposed on stage 3b chronic kidney disease [N17.9, N18.32] Acute on chronic HFrEF (heart failure with reduced ejection fraction) (HCC) [I50.23] Hypokalemia [E87.6] Hypopotassemia Hypomagnesemia [E83.42] Disorders of magnesium metabolism Acute deep vein thrombosis (DVT) of other vein of lower extremity, unspecified laterality (HCC) [I82.409] Cirrhosis of liver without ascites, unspecified hepatic cirrhosis type (HCC) [K74.60] Elevated liver enzymes Nonspecific elevation of levels of transaminase or lactic acid dehydrogenase (LDH) SOB (shortness of breath) Shortness of breath Cardiogenic shock (HCC) Cardiogenic shock Pneumonia of right lower lobe due to infectious organism Acute kidney injury superimposed on stage 3b chronic kidney disease Cirrhosis (HCC) Cirrhosis of liver without mention of alcohol Hypomagnesemia Disorders of magnesium metabolism Hypokalemia Hypopotassemia Acute deep vein thrombosis (DVT) of lower extremity (HCC) Acute deep vein thrombosis (DVT) of distal vein of lower extremity, unspecified laterality (HCC)- Primary [facility] Diagnosis Acute on chronic HFrEF (heart failure with reduced ejection fraction) (HCC)- Primary Pneumonia of right lower lobe due to infectious organism Cardiogenic shock (HCC) Cardiogenic shock Pneumonia due to infectious organism, unspecified laterality, unspecified part of lung Tachycardia, unspecified Unspecified right bundle-branch block Abnormal electrocardiogram (ECG) (EKG) Nonspecific intraventricular block Other heart block Bradycardia, unspecified Cardiomegaly Left bundle-branch block, unspecified Acute kidney injury superimposed on stage 3b chronic kidney disease [N17.9, N18.32] Acute on chronic HFrEF (heart failure with reduced ejection fraction) (HCC) [I50.23] Hypokalemia [E87.6] Hypopotassemia Hypomagnesemia [E83.42] Disorders of magnesium metabolism Acute deep vein thrombosis (DVT) of other vein of lower extremity, unspecified laterality (HCC) [I82.409] Cirrhosis of liver without ascites, unspecified hepatic cirrhosis type (HCC) [K74.60] Elevated liver enzymes Nonspecific elevation of levels of transaminase or lactic acid dehydrogenase (LDH) SOB (shortness of breath) Shortness of breath Cardiogenic shock (HCC) Cardiogenic shock Pneumonia of right lower lobe due to infectious organism Acute kidney injury superimposed on stage 3b chronic kidney disease Cirrhosis (HCC) Cirrhosis of liver without mention of alcohol Hypomagnesemia Disorders of magnesium metabolism Hypokalemia Hypopotassemia Acute deep vein thrombosis (DVT) of lower extremity (HCC) Acute deep vein thrombosis (DVT) of distal vein of lower extremity, unspecified laterality (HCC)- Primary [facility] Diagnosis Acute on chronic HFrEF (heart failure with reduced ejection fraction) (HCC)- Primary Pneumonia of right lower lobe due to infectious organism Cardiogenic shock (HCC) Cardiogenic shock Pneumonia due to infectious organism, unspecified laterality, unspecified part of lung Tachycardia, unspecified Unspecified right bundle-branch block Abnormal electrocardiogram (ECG) (EKG) Nonspecific intraventricular block Other heart block Bradycardia, unspecified Cardiomegaly Left bundle-branch block, unspecified Acute kidney injury superimposed on stage 3b chronic kidney disease [N17.9, N18.32] Acute on chronic HFrEF (heart failure with reduced ejection fraction) (HCC) [I50.23] Hypokalemia [E87.6] Hypopotassemia Hypomagnesemia [E83.42] Disorders of magnesium metabolism Acute deep vein thrombosis (DVT) of other vein of lower extremity, unspecified laterality (HCC) [I82.409] Cirrhosis of liver without ascites, unspecified hepatic cirrhosis type (HCC) [K74.60] Elevated liver enzymes Nonspecific elevation of levels of transaminase or lactic acid dehydrogenase (LDH) SOB (shortness of breath) Shortness of breath Cardiogenic shock (HCC) Cardiogenic shock Pneumonia of right lower lobe due to infectious organism Acute kidney injury superimposed on stage 3b chronic kidney disease Cirrhosis (HCC) Cirrhosis of liver without mention of alcohol Hypomagnesemia Disorders of magnesium metabolism Hypokalemia Hypopotassemia Acute deep vein thrombosis (DVT) of lower extremity (HCC) Acute deep vein thrombosis (DVT) of distal vein of lower extremity, unspecified laterality (HCC)- Primary [facility] Diagnosis Onset Date Resolution Status Admit Date CKD stage 3b, GFR 30-44 ml/min acute January 04, 2025 1:40pm Elevated bilirubin acute January 042024 1:40pm HFrEF (heart failure with re duced ejection fraction) acute January 04 1:40pm [facility] Work Phone: History and physical note Author Anshul Lemus [facility] Note Date/Time January 04, 2025 2:06p m [facility] Medical Records Department [address] [place] [address] H&P Exam - Hospitalist 01/04/25 1351 MR#: [id number] Acct: [id number] Name: CARLO MEDINA Rep #:[id number] : 1980 44 From: Anshul Jopperi DO PCP: Care Physician,No Primary Status :ADM IN Location: U [id number] [facility] Date of Service: 01/04/25 Chief Complaint: Shortness of breath. Edema. [facility] Narrative CARLO MEDINA, is a 44 M who presents with progressive shortness of breath and edema. Patient is a 44-year-old male with a history of nonischemic cardiomyopathy with an ejection fraction of 20%. States that he had a left heart catheterization that showed no obstructive coronary disease. They have attempted right heart catheterization but was unsuccessful and the patient declined further attempts. Resents with increased weight gain of about 10 pounds with period time. Has had numerous hospitalizations over at [facility] and recently was over at [facility] in September. It is documented throughout his charts at [facility] [place] as well as [facility] that he has a history of noncompliance. Patient at home has been taking the amantadine as well as apixaban and isosorbide. Patient has not been put on LUCRECIA inhibitors no angiotensin receptor blockers given chronic kidney disease. Because of his weight gain, shortness of breath, he presented to the ED. His BNP was 25,000, total bilirubin 4.32, direct bilirubin 2.68, creatinine 2.03. Chest x-ray showssome mild pulmonary vascular congestion but also cardiomegaly. The hospital service was contacted for admission. I did discuss with the patient if he wants to have a defibrillator that he should really be transferred elsewhere. I discussed with him at length about the indication a defibrillator because he is at higher risk of lethal cardiac arrhythmia, such as ventricular fibrillation and that would defibrillate him outif he were to sustain that. He expressed needing more time to think by that even though this was brought up to him peers in June. He had expressed apprehension about his arm limited regards to his mobility. His girlfriend was present and states that this is the first time that she has heard any of this despite him being hospice numerous times at different facilities. He again insists that he does not want defibrillator however he wants to be full code. States that anything happens that they would address that he is in the hospital. I tried to impress upon him that the concern is not necessary but we can do in the hospital what he would when he goes home. He states that he still wants time to think about it. PFSH Medical History (Updated 01/04/25 @ 14:[address] Anshul Lemus DO) CKD (chronic kidney disease) Cardiomyopathy Left bundle branch block Noncompliance Pulmonary embolism CHF (congestive heart failure) Home Medications ?Medication ?Instructions ?Recorded ?Last Taken ?Type apixaban 5 mg tablet (Eliquis) 5 mg PO BID 01/04/25 Un known History bumetanide 1 mg tablet 1 mg PO BID 01/04/25 Unknown History isosorbide dinitrate 20 mg tablet 20 mg PO Q8H 5 Unknown History Allergy/AdvReac Type Severity Reaction Status Date / Time No Known Allergies Allergy Verified 01/04/25 07:32 Family History (Updated 01/04/25 @ 13:[address] Anshul Lemus DO) Father Heart disease Brother Heart disease Social History (Updated 01/04/25 @ 13:[address] Anshul Lemus DO) Smoking Status: Never smoker alcohol intake: never substance use type: does not use ROS ROS Narrative All review of systems were negative except as mentioned above in the history of present illness and the other review of systems. Vital Signs Vital Signs Vital Signs: 01/04/25 07:28 01/04/25 07:52 01/04/25 08:26 Temperature 36.1 C L Temperature Source Temporal Pulse Rate 56 L 56 L Respiratory Rate 20 H 18 Respiratory Effort Normal Non-Labored Respiratory Depth Normal Respiratory Pattern Normal Blood Pressure 128/95 H Blood Pressure Mean 106 Pulse Ox 95 100 Oxygen Delivery Method Room Air Room Air Room Air Oxygen Flow Rate (L/min) 01/04/25 09:00 01/04/25 10:23 01/04/25 11:06 Temperature Temperature Source Pulse Rate 51 L 51 L 56 L Respiratory Rate 24 H 19 H 18 Respiratory Effort Respiratory Depth Respiratory Pattern Blood Pressure 123/109 H 121/96 H Blood Pressure Mean 113 104 Pulse Ox 95 98 96 Oxygen Delivery Method Room Air Nasal Cannula Nasal Cannula Oxygen Flow Rate (L/min) 2 2 01/04/25 12:00 01/04/25 13:00 Temperature Temperature Source Pulse Rate 55 L 54 L Respiratory Rate 19 H 28 H Respiratory Effort Respiratory Depth Respiratory Pattern Blood Pressure 121/71 H Blood Pressure Mean 87 Pulse Ox 99 Oxygen Delivery Method Nasal Cannula Oxygen Flow Rate (L/min) 2 Weight Weight: 82.2 kg Body Mass Index (BMI) 23.9 Physical Exam Narrative POCUS: Indication is for heart failure. Did not do full cardiac valve as there is no phased-array probe on the ED ultrasound. But using a FAST exam, heart wasglobally weak with limited motion but this was due to the fast protocol not through a cardiac protocol. And patient had markedly dilated IVC with no compressibility with inspirations. Right sided kidney was evaluated and did notshow any hydronephrosis. Left kidney unable to be visualized. Did not cruciated ascites in the abdomen. Const alert and no apparent distress Constitutional Narrative: On nasal cannula. No respiratory distress. No conversational dyspnea. HEENT normocephalic and head/scalp atraumatic Neck Neck Narrative: Marked JVD. Resp normal respiratory effort, no retractions, no use of accessory muscles and clearto auscultation bilaterally Cardio regular rate, regular rhythm, S1 normal heart sound and S2 normal heart sound GI normal to inspection, nondistended, normoactive bowel sounds, soft to palpation,non-tender, non-distended and hepatosplenomegaly Extremity full ROM Extremity Narrative: Bilateral lower extremity edema. Neuro Sensorium / Orientation: awake, alert, oriented to person, oriented to place andoriented to time Psych affect normal Results Lab / Micro Data Attestation: I reviewed the patient's lab results. 01/04/25 09:34 01/04/25 09:34 Labs: Laboratory Results - last 24 hr 01/04/25 09:34: WBC 6.2, RBC 3.90 L, Hgb 12.9 L, Hct 40.6, MCV 104.1 H, MCH 33.1H, MCHC 31.8 L, RDW Std Deviation 57.5 H, RDW Coeff of Juan 15.0 H, Plt Count 219, MPV 10.4, Immature Gran % (Auto) 0.200, Neut % (Auto) 59.5, Lymph % (Auto) 30.6, [place] % (Auto) 9.1, Eos % (Auto) 0.3, Baso % (Auto) 0.3, Absolute Neuts (auto) 3.7, Absolute Lymphs (auto) 1.88, Nucleated RBC % 0.3, Sodium 144, Potassium 3.7, Chloride 105, Carbon Dioxide 25.2, Anion Gap 14, BUN 30 H, Creatinine 2.03 H, Estim Creat Clear Calc 51.39, Est GFR (MDRD) Non-Af 40 L, BUN/Creatinine Ratio 14.9, Glucose 97, Calcium 9.0, Total Bilirubin 4.32 H, Direct Bilirubin 2.68 H, AST 28, ALT 22, Alkaline Phosphatase 743 H, Troponin T High Sens 45 H, [place] [address] H, Total Protein 6.8, Albumin 3.6, Globulin 3.2, Lipase 15 01/04/25 11:20: Troponin T Hi Sens 2 Hr 42 H EKG Initial EKG: Attestation: I personally reviewed and interpreted this EKG as follows: EKG Rhythm Intrepretation: Sinus Bradycardia Imaging Radiology Impression Chest X-Ray 01/04/25 08:25 IMPRESSION: Bibasilar atelectasis or pneumonia. Reading Location: [facility] Abdomen Ultrasound 01/04/25 11:03 IMPRESSION: 1. Ascites. 2. Fatty infiltration of the liver. Reading Location: [facility] Assessment & Plan Assessment/Plan (1) HFrEF (heart failure with reduced ejection fraction): PLAN: Patient takes Bumex as outpatient. Did recommend initiating furosemide infusion. Patient Ress reservations about that because he did not want to be limited in regards to his mobility about being tied down to IV pump. He requested the boluses instead. I did explain to him that it would likely expedite more rapid removal but also being safer on the kidneys. Expressed understanding but prefers boluses instead. So we will utilize furosemide 40 mg IV every 8 hours for the time being. Holding off on LUCRECIA inhibitors and angiotensin receptor blockers given CKD. As well as Entresto. Will start empagliflozin however. Repeat echocardiogram as previous ejection fraction has been documented as 20%. Had very lengthy conversation with he and his girlfriend at bedside about the indication for defibrillator to help defibrillate in the event of cardiac arrestsuch as ventricular fibrillation which she is at high risk for. Continues to decline that though he wishes to be full code. Will fluid restrict. Check daily weights. Did discuss the case with Dr. Almaraz. He said he would be happy to follow-up with the patient as outpatient. No acute cardiac needs at this point time so piyush hold off on cardiology consultation at present. Patient states that he is had a left heart catheterization which has been normal. (2) Elevated bilirubin: PLAN: Suspect due to hepatic congestion due to his cardiomyopathy. (3) CKD stage 3b, GFR 30-44 ml/min: PLAN: Monitor closely while on diuretics. PLAN: Plan History of PE: Continue with apixaban History of noncompliance: Per previous documentation [facility] Patient is steadfast in regards to doing only what he wants to do despite recommendations that may go against what he would want to do, such as furosemide as above. Expressed that he and his fianc?e that we will respect hisautonomy in regards to his decisions but did express to him over that it is important that he have education in regards to the risks of his decisions so that he has thorough understanding of potential outcomes. VTE prophylaxis: Not indicated as patient is already on apixaban CODE STATUS: Addressed with patient. Patient wishes to be full code. He understands that he is at higher risk for lethal cardiac arrhythmias, such as ventricular fibrillation, given his cardiomyopathy. Charges/Coding Visit Charges Inpatient E&M: 97424 Init Hosp L3 01/04/25 1406 <Electronically signed by Anshul Lemus DO> Cosigner Signature (if applicable): CC: Dr. Anshul Lemus, ; No Primary Care Physician~ Signed [facility] Work Phone: Hospital Discharge instructions* Attachments The following attachments cannot be sent through Care Everywhere. * Heart Failure Discharge Instructions, Adult (Moroccan) documented in this [facility] Discharge instructions Ambulatory Orders* Phase II, Outpatient Cardiac Rehab Location: None Selected [facility] Work Phone: Hospital Discharge instructionsAdditional Instructions You had heart failure and you improved with the IV furosemide (Lasix). You will continue your Bumex at home. Restrict your fluid to 1.5 L (50 ounces or 6.5 cups) of fluid per day. Check your weight every day and keep a record. Take an additional dose of Bumex if your weight goes up more than 2 pounds in 1 day or 3 pounds in 1 week. If you change your mind about having a pacemaker or defibrillator, you can present yourself to any emergency room that would be preferable if you went to an institution that is larger that perform those procedures including [facility], [facility], [facility], [facility]. If you have issues in regards to you passing out and having no recollection of the event, irregular heartbeat, call 911 and go to the nearest emergency room. As we discussed, you are at high risk of because of your weak heart and your abnormal heart rhythm (second-degree heart block Mobitz type II).[facility] Work Phone: Reason for referral (narrative)No reason for referral information [facility] Work Phone: Reason for visit Narrative* Auth/Cert (Routine) Specialty Diagnoses / Procedures Referred By Macario t Referred To Contact Diagnoses Orthopnea Sore throat Positive D dimer Pulmonary vascular congestion Short of breath on exertion Chest pain, unspecified type Acute cough Congestive heart failure, unspecified HF chronicity, unspecified heart failure type (HCC) Procedures . Alonzo Aguilar MD [address] [place] [address] Phone: tel: fax: [facility] Clinical Decision Unit [address] [address] Phone: tel: Referral ID Status Reason Start Date Expiration Date Visits Re quested Visits Authorized [id number] 1 1 [facility] Advance Directives No Advanced Directives Records Found Date Activated Date Inactivated Comments 10/18/2024 5:06 AM 10/26/2024 5:33 PM Question Answer Comments Documentation of decision pr ocess for this code status: Discussed with patient or surrogate. This is the code status chosen by the patient/surrogate. Date Activated Date Inactivated Comments 09/30/2024 10:42 PM 10/06/2024 6:41 PM Question Answer Comments Documentation of decision pr ocess for this code status: Patient and surrogate unable or unavailable to discuss. There is no previous documentation of code status. Defaulting to Full Code Date Activated Date Inactivated Comments 09/08/2024 1:45 AM 09/11/2024 5:34 PM Question Answer Comments Documentation of decision pr ocess for this code status: Discussed with patient or surrogate. This is the code status chosen by the patient/surrogate. Date Activated Date Inactivated Comments 09/01/2024 11:11 AM 09/08/2024 1:45 AM Question Answer Comments Documentation of decision pr ocess for this code status: Patient and surrogate unable or unavailable to discuss. There is no previous documentation of code status. Defaulting to Full Code Date Activated Date Inactivated Comments 08/10/2024 8:43 PM 08/20/2024 6:23 PM Date Activated Date Inactivated Comments 07/24/2024 2:16 AM 07/30/2024 4:34 PM Date Activated Date Inactivated Comments 07/12/2024 4:58 AM 07/16/2024 6:12 PM Date Activated Date Inactivated Comments 07/03/2024 9:36 PM 07/05/2024 4:17 PM Date Activated Date Inactivated Comments 06/13/2024 5:06 PM 06/21/2024 5:56 PM Date Activated Date Inactivated Comments 02/29/2024 12:36 AM Date Activated Date Inactivated Comments 02/29/2024 12:36 AM 03/01/2024 4:50 PM Date Activated Date Inactivated Comments 02/29/2024 12:36 AM 03/01/2024 4:50 PM Date Activated Date Inactivated Comments 03/06/2024 9:56 AM 03/07/2024 3:48 PM Date Activated Date Inactivated Comments 02/29/2024 12:36 AM 03/01/2024 4:50 PM Date Activated Date Inactivated Comments 04/28/2024 7:53 AM 04/28/2024 5:11 PM Date Activated Date Inactivated Comments 03/06/2024 9:56 AM 03/07/2024 3:48 PM Date Activated Date Inactivated Comments 02/29/2024 12:36 AM 03/01/2024 4:50 PM Date Activated Date Inactivated Comments 04/28/2024 7:53 AM 04/28/2024 5:11 PM Date Activated Date Inactivated Comments 03/06/2024 9:56 AM 03/07/2024 3:48 PM Date Activated Date Inactivated Comments 02/29/2024 12:36 AM 03/01/2024 4:50 PM Date Activated Date Inactivated Comments 05/28/2024 12:44 PM Date Activated Date Inactivated Comments 04/28/2024 7:53 AM 04/28/2024 5:11 PM Date Activated Date Inactivated Comments 03/06/2024 9:56 AM 03/07/2024 3:48 PM Date Activated Date Inactivated Comments 02/29/2024 12:36 AM 03/01/2024 4:50 PM Date Activated Date Inactivated Comments 05/28/2024 12:44 PM 06/01/2024 7:09 PM Date Activated Date Inactivated Comments 04/28/2024 7:53 AM 04/28/2024 5:11 PM Date Activated Date Inactivated Comments 03/06/2024 9:56 AM 03/07/2024 3:48 PM Date Activated Date Inactivated Comments 02/29/2024 12:36 AM 03/01/2024 4:50 PM Date Activated Date Inactivated Comments 05/28/2024 12:44 PM 06/01/2024 7:09 PM Date Activated Date Inactivated Comments 06/13/2024 5:06 PM 06/21/2024 5:56 PM Date Activated Date Inactivated Comments 05/28/2024 12:44 PM 06/01/2024 7:09 PM Date Activated Date Inactivated Comments 04/28/2024 7:53 AM 04/28/2024 5:11 PM Date Activated Date Inactivated Comments 03/06/2024 9:56 AM 03/07/2024 3:48 PM Date Activated Date Inactivated Comments 02/29/2024 12:36 AM 03/01/2024 4:50 PM Date Activated Date Inactivated Comments 06/13/2024 5:06 PM 06/21/2024 5:56 PM Date Activated Date Inactivated Comments 05/28/2024 12:44 PM 06/01/2024 7:09 PM Date Activated Date Inactivated Comments 04/28/2024 7:53 AM 04/28/2024 5:11 PM Date Activated Date Inactivated Comments 03/06/2024 9:56 AM 03/07/2024 3:48 PM Date Activated Date Inactivated Comments 02/29/2024 12:36 AM 03/01/2024 4:50 PM Date Activated Date Inactivated Comments 07/03/2024 9:36 PM 07/05/2024 4:17 PM Date Activated Date Inactivated Comments 06/13/2024 5:06 PM 06/21/2024 5:56 PM Date Activated Date Inactivated Comments 05/28/2024 12:44 PM 06/01/2024 7:09 PM Date Activated Date Inactivated Comments 04/28/2024 7:53 AM 04/28/2024 5:11 PM Date Activated Date Inactivated Comments 03/06/2024 9:56 AM 03/07/2024 3:48 PM Date Activated Date Inactivated Comments 07/03/2024 9:36 PM 07/05/2024 4:17 PM Date Activated Date Inactivated Comments 06/13/2024 5:06 PM 06/21/2024 5:56 PM Date Activated Date Inactivated Comments 05/28/2024 12:44 PM 06/01/2024 7:09 PM Date Activated Date Inactivated Comments 04/28/2024 7:53 AM 04/28/2024 5:11 PM Date Activated Date Inactivated Comments 03/06/2024 9:56 AM 03/07/2024 3:48 PM Date Activated Date Inactivated Comments 07/12/2024 4:58 AM Date Activated Date Inactivated Comments 07/03/2024 9:36 PM 07/05/2024 4:17 PM Date Activated Date Inactivated Comments 06/13/2024 5:06 PM 06/21/2024 5:56 PM Date Activated Date Inactivated Comments 05/28/2024 12:44 PM 06/01/2024 7:09 PM Date Activated Date Inactivated Comments 04/28/2024 7:53 AM 04/28/2024 5:11 PM Date Activated Date Inactivated Comments 07/12/2024 4:58 AM 07/16/2024 6:12 PM Date Activated Date Inactivated Comments 07/03/2024 9:36 PM 07/05/2024 4:17 PM Date Activated Date Inactivated Comments 06/13/2024 5:06 PM 06/21/2024 5:56 PM Date Activated Date Inactivated Comments 05/28/2024 12:44 PM 06/01/2024 7:09 PM Date Activated Date Inactivated Comments 04/28/2024 7:53 AM 04/28/2024 5:11 PM Date Activated Date Inactivated Comments 07/12/2024 4:58 AM 07/16/2024 6:12 PM Date Activated Date Inactivated Comments 07/24/2024 2:16 AM 07/30/2024 4:34 PM Date Activated Date Inactivated Comments 07/12/2024 4:58 AM 07/16/2024 6:12 PM Date Activated Date Inactivated Comments 07/03/2024 9:36 PM 07/05/2024 4:17 PM Date Activated Date Inactivated Comments 06/13/2024 5:06 PM 06/21/2024 5:56 PM Date Activated Date Inactivated Comments 05/28/2024 12:44 PM 06/01/2024 7:09 PM Date Activated Date Inactivated Comments 08/10/2024 8:43 PM Date Activated Date Inactivated Comments 08/10/2024 8:43 PM Date Activated Date Inactivated Comments 07/24/2024 2:16 AM 07/30/2024 4:34 PM Date Activated Date Inactivated Comments 07/12/2024 4:58 AM 07/16/2024 6:12 PM Date Activated Date Inactivated Comments 07/03/2024 9:36 PM 07/05/2024 4:17 PM Date Activated Date Inactivated Comments 06/13/2024 5:06 PM 06/21/2024 5:56 PM Date Activated Date Inactivated Comments 09/30/2024 10:42 PM Question Answer Comments Documentation of decision pr ocess for this code status: Patient and surrogate unable or unavailable to discuss. There is no previous documentation of code status. Defaulting to Full Code Date Activated Date Inactivated Comments 09/08/2024 1:45 AM 09/11/2024 5:34 PM Question Answer Comments Documentation of decision pr ocess for this code status: Discussed with patient or surrogate. This is the code status chosen by the patient/surrogate. Date Activated Date Inactivated Comments 09/01/2024 11:11 AM 09/08/2024 1:45 AM Question Answer Comments Documentation of decision pr ocess for this code status: Patient and surrogate unable or unavailable to discuss. There is no previous documentation of code status. Defaulting to Full Code Date Activated Date Inactivated Comments 09/30/2024 10:42 PM 10/06/2024 6:41 PM Question Answer Comments Documentation of decision pr ocess for this code status: Patient and surrogate unable or unavailable to discuss. There is no previous documentation of code status. Defaulting to Full Code Date Activated Date Inactivated Comments 09/08/2024 1:45 AM 09/11/2024 5:34 PM Question Answer Comments Documentation of decision pr ocess for this code status: Discussed with patient or surrogate. This is the code status chosen by the patient/surrogate. Date Activated Date Inactivated Comments 09/01/2024 11:11 AM 09/08/2024 1:45 AM Question Answer Comments Documentation of decision pr ocess for this code status: Patient and surrogate unable or unavailable to discuss. There is no previous documentation of code status. Defaulting to Full Code Date Activated Date Inactivated Comments 10/18/2024 5:06 AM Date Activated Date Inactivated Comments 10/18/2024 5:06 AM Question Answer Comments Documentation of decision pr ocess for this code status: Discussed with patient or surrogate. This is the code status chosen by the patient/surrogate. Date Activated Date Inactivated Comments 09/30/2024 10:42 PM 10/06/2024 6:41 PM Question Answer Comments Documentation of decision pr ocess for this code status: Patient and surrogate unable or unavailable to discuss. There is no previous documentation of code status. Defaulting to Full Code Date Activated Date Inactivated Comments 09/08/2024 1:45 AM 09/11/2024 5:34 PM Question Answer Comments Documentation of decision pr ocess for this code status: Discussed with patient or surrogate. This is the code status chosen by the patient/surrogate. Date Activated Date Inactivated Comments 09/01/2024 11:11 AM 09/08/2024 1:45 AM Question Answer Comments Documentation of decision pr ocess for this code status: Patient and surrogate unable or unavailable to discuss. There is no previous documentation of code status. Defaulting to Full Code Date Activated Date Inactivated Comments 10/18/2024 5:06 AM 10/26/2024 5:33 PM Advance Directive Response Recorded Date/ Time Do you have a Healthcare Power of Healthcare Market Consultant? No January 04, 2025 7:54am Advance Directive Response Recorded Date/ Time Do you have a Healthcare Power of Healthcare Market Consultant? No January 04, 2025 2:45pm Summary Purpose Family History No Family History Records Found Relationship Condition Age at Onset Recorded Date/T marjan father Cardiac disease Unknown brother Cardiac disease Unknown Chief Complaint and Reason for Visit Chief Complaint Admit Date CHF EXACERBATION January 04, 2025 1:40p m CHF EXACERBATION January 04, 2025 1:51p m Reason for Visit Admit Date CKD stage 3b, GFR 30-44 ml/min January 04, 2025 1:40pm Elevated bilirubin January 04, 2025 1:40p m HFrEF (heart failure with reduced ejecti on fraction) January 04, 2025 1:40pm Chief Complaint Admit Date CHF EXACERBATION January 04, 2025 1:40p m CHF EXACERBATION January 04, 2025 1:51p m CHF EXACERBATION January 05, 2025 8:05a m CHF EXACERBATION January 06, 2025 8:23 am CHF EXACERBATION January 07, 2025 8:03 am CHF EXACERBATION January 08, 2025 7:50 am CHF EXACERBATION January 09, 2025 7:48 am Referral Order January 10, 2025 8:18 am Reason for Visit Admit Date CKD stage 3b, GFR 30-44 ml/min January 04, 2025 1:40pm Elevated bilirubin January 04, 2025 1:40p m Heart block January 04, 2025 1:40p m HFrEF (heart failure with reduced ejecti on fraction) January 04, 2025 1:40pm Hypokalemia January 04, 2025 1:40p m Chief Complaint Admit Date CHF EXACERBATION January 04, 2025 1:40p m CHF EXACERBATION January 04, 2025 1:51p m CHF EXACERBATION January 05, 2025 8:05a m CHF EXACERBATION January 06, 2025 8:23 am CHF EXACERBATION January 07, 2025 8:03 am CHF EXACERBATION January 08, 2025 7:50 am CHF EXACERBATION January 09, 2025 7:48 am CHF EXACERBATION January 10, 2025 8:11 am Referral Order January 10, 2025 8:18 am Additional Source Comments Reason for Visit (unrecogniz ed section and content) Reason Comments Shortness of Breath Specialty Diagnoses / Procedures Referred By Macario manriquez Referred To Contact Diagnoses Shortness of breath Positive D dimer Chest pain, unspecified type Hypertension, unspecified type Congestive heart failure, unspecified HF chronicity, unspecified heart failure type ([facility]) Procedures [id number] of breath Sherri Jeter MD [address] [place] [address] [facility] [address] [place] [address] Referral ID Status Reason Start Date Expiration Date Visits Re quested Visits Authorized [id number] 1 1 Reason Onset Date Comments Hospital Follow-up 03/02/2024 Specialty Diagnoses / Procedures Referred By Contaries t Referred To Contact Diagnoses Shortness of breath Procedures sob Helder Pozo MD [address] [place] [address] [facility] Emergency Dept [address] [place] [address] Referral ID Status Reason Start Date Expiration Date Visits Re quested Visits Authorized [id number] 1 1 Reason Comments Shortness of Breath Since 7pm Specialty Diagnoses / Procedures Referred By Contac t Referred To Contact Diagnoses Shortness of breath Procedures sob Helder Pozo MD [address] [place] [address] [facility] Emergency Dept [address] [place] [address] Reason Onset Date Comments Care Coordination 03/08/2024 Reason Onset Date Comments Med Management 03/16/2024 Reason Onset Date Comments Care Coordination Outreach 04/27/2024 Reason Onset Date Comments Care Coordination 04/29/2024 Reason Onset Date Comments Chest Pain 04/30/2024 Reason Onset Date Comments Care Coordination 05/05/2024 Reason Comments Nausea Weight Loss Specialty Diagnoses / Procedures Referred By Contac t Referred To Contact Diagnoses Metabolic acidosis HFrEF (heart failure with reduced ejection fraction) (HCC) Procedures . Mary Ellen Brito MD [address] [place] [address] Phone: tel: fax: [facility] Cardiac Progressive Care Unit PCU 2E [address] [place] [address] Phone: tel: Referral ID Status Reason Start Date Expiration Date Visits Re quested Visits Authorized [id number] 1 1 Reason Comments Leg Swelling BLE Reason Onset Date Comments Hospital Follow-up 06/03/2024 Reason Onset Date Comments Other 06/07/2024 Scheduling Reason Onset Date Comments Appointment Request 05/30/2024 Reason Onset Date Comments Other 06/02/2024 Returning call Reason Comments Hospital Follow-up Reason Onset Date Comments Other 06/10/2024 Reason Comments Abdominal Pain Leg Swelling Specialty Diagnoses / Procedures Referred By Contac t Referred To Contact Diagnoses Acute exacerbation of chronic heart failure (HCC) Procedures - Serg Celaya MD [address] [place] [address] Phone: tel: fax: [facility] Cardiac Progressive Care Unit U [address]E [address] [place] [address] Phone: tel: Referral ID Status Reason Start Date Expiration Date Visits Re quested Visits Authorized [id number] 1 1 Reason Onset Date Comments Hospital Follow-up 06/24/2024 Reason Onset Date Comments Hospital Follow-up 06/22/2024 Reason Comments Follow-up Reason Comments Abdominal Pain Shortness of Breath Patient reports he h as a history of heart disease and stage 3 kidney disease. Patient reports shob started last pm. 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 Specialty Diagnoses / Procedures Referred By Contac t Referred To Contact Diagnoses Transaminitis History of CHF (congestive heart failure) Acute kidney injury superimposed on CKD (HCC) (HCC) Procedures . Ofelia Villalobos MD [address] [place] [id number] Phone: tel: fax: [facility] Cardiac Thoracic Vascular Intensive Care Unit CTV ICU T1 [address] [place] [address] Phone: tel: Referral ID Status Reason Start Date Expiration Date Visits Re quested Visits Authorized [id number] 1 1 Reason Comments Hospital Follow-up Cardiomyopathy Reason Comments Abdominal Pain Specialty Diagnoses / Procedures Referred By Contac t Referred To Contact Diagnoses Biventricular heart failure (HCC) NSTEMI (non-ST elevated myocardial infarction) (HCC) HFrEF (heart failure with reduced ejection fraction) (HCC) Abdominal pain, unspecified abdominal location Cardiorenal syndrome with renal failure, stage 1-4 or unspecified chronic kidney disease, with heart failure (HCC) Procedures . Rafa Samuel MD [address] [place] [address] Phone: tel: fax: [facility] Cardiac Progressive Care Unit U [address]E [address] [place] [address] Phone: tel: Referral ID Status Reason Start Date Expiration Date Visits Re quested Visits Authorized [id number] 1 1 Reason Onset Date Comments Hospital Follow-up 07/19/2024 Reason Onset Date Comments Appointment Request 07/23/2024 Reason Onset Date Comments Results 07/23/2024 Worsening renal function, hyperkalemia, heart failure Reason Comments Shortness of Breath Abdominal Pain Specialty Diagnoses / Procedures Referred By Contac t Referred To Contact Diagnoses Acute kidney injury (HCC) Procedures . Rafa Samuel MD [address] [place] [address] Phone: tel: fax: [facility] ED [address] [place] [address] Phone: tel: Referral ID Status Reason Start Date Expiration Date Visits Re quested Visits Authorized [id number] 1 1 Reason Onset Date Comments Hospital Follow-up 08/02/2024 Reason Comments New Patient Referred by Dr Jarett ford Congestive Heart Failure Echo pending 08/30/24 Hospital Follow-up 6 admission since Au g 2023 Reason Comments Chest Pain Patient arrives via triage for c/o chest pain and shortness of breath x1 day Reason Onset Date Comments Discuss Labs 08/05/2024 Med Management 08/05/2024 Reason Comments Shortness of Breath Chest Pain Abdominal Pain Specialty Diagnoses / Procedures Referred By Contac t Referred To Contact Diagnoses Acute kidney injury superimposed on CKD (HCC) (HCC) Procedures . Nghia Webb MD [address] [place] [address] Phone: tel: fax: [facility] ED [address] [place] [address] Phone: tel: Referral ID Status Reason Start Date Expiration Date Visits Re quested Visits Authorized [id number] 1 1 Reason Comments Follow-up Reason Comments Chest Pain Shortness of Breath Reason Onset Date Comments Other 08/23/2024 HFdEF Reason Comments Kidney Eval Pt states he has kid margoth issues and has been vomiting all day which leads him to believe that is having problems with his kidneys Reason Comments Shortness of Breath Heart burn, nausea, vomiting, diarrhea, coughing Chest Pain Reason Onset Date Comments Heart Failure Outreach 08/25/2024 Reason Comments Shortness of breath Pt c/o right sided r ib pain, sob. Diarrhea x1 week, vomiting yesterday with cough and congestion. Specialty Diagnoses / Procedures Referred By Contac t Referred To Contact Emergency Medicine Diagnoses Pneumonia, unspecified organism Fluid overload, unspecified Procedures NA [facility] [address] [place] [phone] Phone: tel: [facility] [address] [place] [phone] Phone: tel: Referral ID Status Reason Start Date Expiration Date Visits Re quested Visits Authorized [id number] 3 3 Reason Comments Hospital follow-up HF DC 10/06/24 Transitional Care Management Reason Comments Cough Pt presents to ed dt chronic cough non productive dry at night, intermittent abd pain (mid lower). -n/v, +d. -cp Reason Onset Date Comments Metro Triage 10/13/2024 Reason Comments Cough X couple wks. Coughi ng up blood x couple days. C/o left side rib pain.On eloquis Specialty Diagnoses / Procedures Referred By Macario t Referred To Contact Emergency Medicine Diagnoses Pneumonia, unspecified organism Procedures NA [facility] [address] [place] [phone] Phone: tel: [facility] [address] [place] [phone] Phone: tel: Referral ID Status Reason Start Date Expiration Date Visits Re quested Visits Authorized [id number] 3 3 Reason Comments Hospital follow-up Transitional Care Management HF DC Reason Comments Refill Reason Onset Date Comments Refill 12/13/2024 Reason Onset Date Comments Refill 12/24/2024 Reason Onset Date Comments Transition Of Care 01/24/2025 Heart Failure 01/24/2025 [facility] Pharmacy-Hos pital discharge 01/21/25 Scheduled Active and Recently Administ ered Medications (unrecognized section and content) Medication Order 02/28/2024 02/29/2024 03/01/2024 clopidogrel (Plavix) tablet 75 mg 75 mg, Oral, Daily, First dose on 02/29/24 at 0522 4232 (Given - Provider: Tamiko Live RN - Comment: given) 0833 (Given - Provider: Tamiko Live RN) enoxaparin (Lovenox) syringe 40 mg 40 mg, SubCUTAneous, Every 24 hours scheduled (Daily), First dose on 02/29/24 at 0900, Indication of Use: Prophylaxis-DVT/PE, Indications: Prophylaxis of Venous Thromboembolism 0842 (Given - Provider: Tamiko Live RN) 0811 (Given - Provider: Tamiko Live RN) furosemide (Lasix) injection 60 mg (COMPLETED) 60 mg, IntraVENous, Once, On 02/28/24 at 1900, For 1 dose 191 (Given - Provider: Belkys Townsend RN) LORazepam (Ativan) tablet 1 mg (COMPLETED) 1 mg, Oral, Once, On 02/28/24 at 2050, For 1 dose 2056 (Given - Provider: Belkys Townsend RN) losartan (Cozaar) tablet 50 mg 50 mg, Oral, Daily, First dose on 02/29/24 at 1045 1246 (Given - Provider: Tamiko Live RN - Comment: given) 0812 (Given - Provider: Tamiko Live RN) metoprolol tartrate (Lopressor) tablet 50 mg 50 mg, Oral, Daily, First dose on 02/29/24 at 1045 1245 (Given - Provider: Tamiko Live RN) 0931 (Given - Provider: Tamiko Live RN) ondansetron (Zofran) injection 4 mg 4 mg, IntraVENous, Once, On 02/28/24 at 2014, For 1 dose 2014 (Not Given - Provider: Belkys Townsend RN - Reason: Patient/family refused) PRN Medication Order 02/28/2024 02/29/2024 03/01/2024 acetaminophen (Tylenol) suppository 650 mg(Linked Group 1) 650 mg, Rectal, Every 6 hours PRN, mild pain (1-3), fever, For temp greater than 100.4 F (38 C), Starting on 02/29/24 at 0035, Administer if oral route cannot be used. Maximum dose of acetaminophen is 4000 mg from all sources in 24 hours. acetaminophen (Tylenol) tablet 650 mg(Linked Group 1) 650 mg, Oral, Every 6 hours PRN, mild pain (1-3), fever, For temp greater than 100.4 F (38 C), Starting on 02/29/24 at 0035, Maximum dose of acetaminophen is 4000 mg from all sources in 24 hours. hydrALAZINE (Apresoline) injection 5 mg 5 mg, IntraVENous, Every 4 hours PRN, high blood pressure, sbp greater than 160, Starting on 02/28/24 at 2144 2251 (Given - Provider: Nirmala Hogan RN) ondansetron (Zofran) injection 4 mg(Linked Group 2) 4 mg, IntraVENous, Every 6 hours PRN, nausea, vomiting, Starting on 02/29/24 at 0035, 1st Line. Give IV if patient is unable to take orally. If inadequate response within 60 minutes, proceed to next-line agent or contact provider if no further options ordered. ondansetron ODT (Zofran-ODT) disintegrating tablet 4 mg(Linked Group 2) 4 mg, Oral, Every 8 hours PRN, nausea, vomiting, Starting on 02/29/24 at 0035, 1st Line. If inadequate response within 60 minutes, proceed to next-line agent or contact provider if no further options ordered. Patient should allow tablet to dissolve on tongue. Do not remove from blister pack until just before administering. perflutren protein A microsphere (Optison) 3 mL in sodium chloride (PF) 0.9 % 10 mL IV syringe (COMPLETED) 0-10 mL, IntraVENous, IMG once PRN, other, Suboptimal echo image, Starting on 02/29/24 at 0830, For 1 dose, CV Procedural Medications, Administer via slow IVP for suboptimal echocardiogram enhancement. May administer as divided doses to reach optimal image enhancement 0830 (Given - Provider: Tamiko Live RN) polyethylene glycol (PEG) 3350 (Miralax) packet 17 g 17 g, Oral, Daily PRN, constipation, Starting on 02/29/24 at 0035, 1st line for treatment of constipation - give scheduled if no bowel movement in past 24 hours. Linked Groups Order Group 1: acetaminophen (Tylenol) tablet 650 mgJump to med 650 mg, Oral, Every 6 hours PRN, mild pain (1-3), fever, For temp greater than 100.4 F (38 C), Starting on 02/29/24 at 0035, Maximum dose of acetaminophen is 4000 mg from all sources in 24 hours. Or acetaminophen (Tylenol) suppository 650 mgJump to med 650 mg, Rectal, Every 6 hours PRN, mild pain (1-3), fever, For temp greater than 100.4 F (38 C), Starting on 02/29/24 at 0035, Administer if oral route cannot be used. Maximum dose of acetaminophen is 4000 mg from all sources in 24 hours. Group 2: ondansetron ODT (Zofran-ODT) disintegrating tablet 4 mgJump to med 4 mg, Oral, Every 8 hours PRN, nausea, vomiting, Starting on 02/29/24 at 0035, 1st Line. If inadequate response within 60 minutes, proceed to next-line agent or contact provider if no further options ordered. Patient should allow tablet to dissolve on tongue. Do not remove from blister pack until just before administering. Or ondansetron (Zofran) injection 4 mgJump to med 4 mg, IntraVENous, Every 6 hours PRN, nausea, vomiting, Starting on 02/29/24 at 0035, 1st Line. Give IV if patient is unable to take orally. If inadequate response within 60 minutes, proceed to next-line agent or contact provider if no further options ordered. Scheduled Medication Order 03/05/2024 03/06/2024 03/07/2024 carvedilol (Coreg) tablet 6.25 mg 6.25 mg, Oral, 2 times daily with meals, First dose on 03/06/24 at 1700 1700 (Not Given - Provider: Lore Meek RN - Reason: Patient/family refused) 1000 (Given - Provider: Ruby Powers RN) clopidogrel (Plavix) tablet 75 mg 75 mg, Oral, Daily, First dose on 03/06/24 at 1230 1312 (Given - Provider: Lore Meek RN) 1001 (Given - Provider: Ruby Powers, RN) enoxaparin (Lovenox) syringe 40 mg 40 mg, SubCUTAneous, Every 24 hours scheduled (Daily), First dose on 03/06/24 at 1000, Indication of Use: Prophylaxis-DVT/PE, Indications: Prophylaxis of Venous Thromboembolism 1125 (Given - Provider: Lore Meek RN) 1000 (Given - Provider: Ruby Powers, CRISTINE) furosemide (Lasix) injection 40 mg (COMPLETED) 40 mg, IntraVENous, Once, On 03/06/24 at 0005, For 1 dose 0009 (Given - Provider: Aicha Hsieh RN) furosemide (Lasix) injection 40 mg (CANCELED) 40 mg, IntraVENous, 2 times daily, First dose on 03/06/24 at 1000 1125 (Given - Provider: Lore Meek RN) furosemide (Lasix) injection 40 mg (CANCELED) 40 mg, IntraVENous, 2 times daily, First dose (after last modification) on 03/06/24 at 1330 1405 (Given - Provider: Lore Meek RN)2019 (Given - Provider: Xenia Patel, CRISTINE) 1000 (Given - Provider: Ruby Powers, CRISTINE) furosemide (Lasix) tablet 80 mg 80 mg, Oral, Daily, First dose on 03/07/24 at 1215 1215 (Not Given - Provider: Ruby Powers RN - Reason: Patient/family refused - Comment: Will take at home) losartan (Cozaar) tablet 100 mg 100 mg, Oral, Daily, First dose (after last modification) on 03/07/24 at 0900 1001 (Given - Provider: Ruby Powers, CRISTINE) losartan (Cozaar) tablet 50 mg (CANCELED) 50 mg, Oral, Daily, First dose on 03/06/24 at 1230 1312 (Given - Provider: Lore Meek RN) metoprolol tartrate (Lopressor) tablet 50 mg (CANCELED) 50 mg, Oral, Daily, First dose on 03/06/24 at 1230 1312 (Given - Provider: Lore Meek RN) nitroglycerin (Nitrostat) SL tablet 0.4 mg (COMPLETED) 0.4 mg, SubLINGual, Once, On Fri03/05/24 at 2205, For 1 dose, May administer up to 3 doses per episode. 2203 (Given - Provider: Aicha Hsieh RN) rosuvastatin (Crestor) tablet 10 mg 10 mg, Oral, Nightly, First dose on 03/06/24 at 2100 2020 (Given - Provider: Xenia Patel, CRISTINE) spironolactone (Aldactone) tablet 25 mg 25 mg, Oral, Daily, First dose on 03/06/24 at 1330 1359 (Given - Provider: Lore Meek, RN) 1000 (Given - Provider: Ruby Powers, CRISTINE) PRN Medication Order 03/05/2024 03/06/2024 03/07/2024 acetaminophen (Tylenol) suppository 650 mg(Linked Group 1) 650 mg, Rectal, Every 6 hours PRN, mild pain (1-3), fever, For temp greater than 100.4 F (38 C), Starting on 03/06/24 at 0955, Administer if oral route cannot be used. Maximum dose of acetaminophen is 4000 mg from all sources in 24 hours. acetaminophen (Tylenol) tablet 650 mg(Linked Group 1) 650 mg, Oral, Every 6 hours PRN, mild pain (1-3), fever, For temp greater than 100.4 F (38 C), Starting on 03/06/24 at 0955, Maximum dose of acetaminophen is 4000 mg from all sources in 24 hours. ondansetron (Zofran) injection 4 mg(Linked Group 2) 4 mg, IntraVENous, Every 6 hours PRN, nausea, vomiting, Starting on 03/06/24 at 0955, Administer if oral route cannot be used. ondansetron ODT (Zofran-ODT) disintegrating tablet 4 mg(Linked Group 2) 4 mg, Oral, Every 8 hours PRN, nausea, vomiting, Starting on 03/06/24 at 0955, Patient should allow tablet to dissolve on tongue. Do not remove from blister pack until just before administering. polyethylene glycol (PEG) 3350 (Miralax) packet 17 g 17 g, Oral, Daily PRN, constipation, Starting on 03/06/24 at 0955, 1st line for treatment of constipation - give scheduled if no bowel movement in past 24 hours. Linked Groups Order Group 1: acetaminophen (Tylenol) tablet 650 mgJump to med 650 mg, Oral, Every 6 hours PRN, mild pain (1-3), fever, For temp greater than 100.4 F (38 C), Starting on 03/06/24 at 0955, Maximum dose of acetaminophen is 4000 mg from all sources in 24 hours. Or acetaminophen (Tylenol) suppository 650 mgJump to med 650 mg, Rectal, Every 6 hours PRN, mild pain (1-3), fever, For temp greater than 100.4 F (38 C), Starting on 03/06/24 at 0955, Administer if oral route cannot be used. Maximum dose of acetaminophen is 4000 mg from all sources in 24 hours. Group 2: ondansetron ODT (Zofran-ODT) disintegrating tablet 4 mgJump to med 4 mg, Oral, Every 8 hours PRN, nausea, vomiting, Starting on 03/06/24 at 0955, Patient should allow tablet to dissolve on tongue. Do not remove from blister pack until just before administering. Or ondansetron (Zofran) injection 4 mgJump to med 4 mg, IntraVENous, Every 6 hours PRN, nausea, vomiting, Starting on 03/06/24 at 0955, Administer if oral route cannot be used. Scheduled Medication Order 04/26/2024 04/27/2024 04/28/2024 aspirin chewable tablet 324 mg (COMPLETED) 324 mg, Oral, Once, On Fri04/28/24 at 0255, For 1 dose 0332 (Given - Provid er: Catherine Nava RN) carvedilol (Coreg) tablet 12.5 mg 12.5 mg, Oral, 2 times daily with meals, First dose (after last modification) on Fri04/28/24 at 1700 1700 (Canceled Entry - Provider: Automatic Discharge Provider - Comment: Automatically canceled at discontinue of medication order) carvedilol (Coreg) tablet 6.25 mg (CANCELED) 6.25 mg, Oral, 2 times daily with meals, First dose on Fri04/28/24 at 0800 0823 (Given - Provid er: Jillian Ferguson RN) clopidogrel (Plavix) tablet 75 mg 75 mg, Oral, Daily, First dose on Fri04/28/24 at 0900 0823 (Given - Provid er: Jillian Ferguson RN) furosemide (Lasix) injection 60 mg (COMPLETED) 60 mg, IntraVENous, Once, On Fri04/28/24 at 0535, For 1 dose 0549 (Given - Provid er: Regina Hogan RN) furosemide (Lasix) injection 60 mg 60 mg, IntraVENous, 2 times daily, First dose (after last modification) on Fri04/28/24 at 0900 0813 (Not Given - Pr ovider: Jillian Freguson RN - Reason: Other - Comment: See previous administration from [facility]) furosemide (Lasix) tablet 80 mg 80 mg, Oral, Daily, First dose on Fri04/28/24 at 0900, On hold since Fri04/28/2024 at 0753 until manually unheld 0753 (Held by provid er - Provider: Juan Maya APRN - WHITING MACHINE OPERATOR - Reason: Other)0900 (Dose Auto Held)1706 (Unheld by provider - Provider: Automatic Discharge Provider) ketorolac (Toradol) injection 15 mg (COMPLETED) 15 mg, IntraVENous, Once, On Fri04/28/24 at 0320, For 1 dose 0332 (Given - Provid er: Catherine Nava RN) losartan (Cozaar) tablet 100 mg 100 mg, Oral, Daily, First dose on Fri04/28/24 at 0900 1000 (Given - Provid er: Jillian Ferguson RN) morphine injection 4 mg (COMPLETED) 4 mg, IntraVENous, Once, On Fri04/28/24 at 0255, For 1 dose, If oral and IV narcotics ordered, use oral first and only use IV if oral is ineffective or cannot take oral. Do Not give oral and IV within 1 hour of each other unless specifically ordered. 0331 (Given - Provid er: Catherine Nava RN) morphine injection 4 mg (COMPLETED) 4 mg, IntraVENous, Once, On Fri04/28/24 at 0545, For 1 dose, If oral and IV narcotics ordered, use oral first and only use IV if oral is ineffective or cannot take oral. Do Not give oral and IV within 1 hour of each other unless specifically ordered. 0548 (Given - Provid er: Regina Hogan RN) ondansetron (Zofran) injection 4 mg (COMPLETED) 4 mg, IntraVENous, Once, On Fri04/28/24 at 0255, For 1 dose 0333 (Given - Provid er: Catherine Nava RN) rosuvastatin (Crestor) tablet 10 mg 10 mg, Oral, Nightly, First dose on Fri04/28/24 at 2100 sodium chloride 0.9 % bolus 1,000 mL (COMPLETED) 1,000 mL, IntraVENous, at 1,000 mL/hr, Administer over 1 Hours, Once, On Fri04/28/24 at 0320, For 1 dose 0336 (New Bag - Prov ider: Catherine Nava RN)0535 (Stopped - Provider: Regina Hogan RN) spironolactone (Aldactone) tablet 25 mg 25 mg, Oral, Daily, First dose on Fri04/28/24 at 0900 0823 (Given - Provid er: Jillian Ferguson RN) PRN Medication Order 04/26/2024 04/27/2024 04/28/2024 acetaminophen (Tylenol) suppository 650 mg(Linked Group 1) 650 mg, Rectal, Every 6 hours PRN, mild pain (1-3), fever, For temp greater than 100.4 F (38 C), Starting on Fri04/28/24 at 0753, Administer if oral route cannot be used. Maximum dose of acetaminophen is 4000 mg from all sources in 24 hours. acetaminophen (Tylenol) tablet 650 mg(Linked Group 1) 650 mg, Oral, Every 6 hours PRN, mild pain (1-3), fever, For temp greater than 100.4 F (38 C), Starting on Fri04/28/24 at 0753, Maximum dose of acetaminophen is 4000 mg from all sources in 24 hours. morphine injection 2 mg 2 mg, IntraVENous, Every 4 hours PRN, moderate pain (4-6), Starting on Fri04/28/24 at 1004, If oral and IV narcotics ordered, use oral first and only use IV if oral is ineffective or cannot take oral. Do Not give oral and IV within 1 hour of each other unless specifically ordered. 1019 (Given - Provid er: Jillian Ferguson RN - Comment: okay to administer per Karrie DOUGHNUT MACHINE OPERATOR HELPER [employer]) naloxone (Narcan) injection 0.4 mg 0.4 mg, IntraVENous, Every 5 min PRN, opioid reversal, respiratory depression, Starting on Fri04/28/24 at 1005, +++ For RR <10, pinpoint pupils, over sedation for opioid reversal - MUST notify casino floorperson provider immediately after first dose, may give IM or SQ if no IV access +++ nitroglycerin (Nitrostat) SL tablet 0.4 mg 0.4 mg, SubLINGual, Every 5 min PRN, chest pain, Starting on Fri04/28/24 at 1004, May administer up to 3 doses per episode. 1010 (Given - Provid er: Jillian Ferguson RN) ondansetron (Zofran) injection 4 mg(Linked Group 2) 4 mg, IntraVENous, Every 6 hours PRN, nausea, vomiting, Starting on Fri04/28/24 at 0930, Administer if oral route cannot be used. ondansetron ODT (Zofran-ODT) disintegrating tablet 4 mg(Linked Group 2) 4 mg, Oral, Every 8 hours PRN, nausea, vomiting, Starting on Fri04/28/24 at 0930, Patient should allow tablet to dissolve on tongue. Do not remove from blister pack until just before administering. polyethylene glycol (PEG) 3350 (Miralax) packet 17 g 17 g, Oral, Daily PRN, constipation, Starting on Fri04/28/24 at 0753, 1st line for treatment of constipation - give scheduled if no bowel movement in past 24 hours. Linked Groups Order Group 1: acetaminophen (Tylenol) tablet 650 mgJump to med 650 mg, Oral, Every 6 hours PRN, mild pain (1-3), fever, For temp greater than 100.4 F (38 C), Starting on Fri04/28/24 at 0753, Maximum dose of acetaminophen is 4000 mg from all sources in 24 hours. Or acetaminophen (Tylenol) suppository 650 mgJump to med 650 mg, Rectal, Every 6 hours PRN, mild pain (1-3), fever, For temp greater than 100.4 F (38 C), Starting on Fri04/28/24 at 0753, Administer if oral route cannot be used. Maximum dose of acetaminophen is 4000 mg from all sources in 24 hours. Group 2: ondansetron ODT (Zofran-ODT) disintegrating tablet 4 mgJump to med 4 mg, Oral, Every 8 hours PRN, nausea, vomiting, Starting on Fri04/28/24 at 0930, Patient should allow tablet to dissolve on tongue. Do not remove from blister pack until just before administering. Or ondansetron (Zofran) injection 4 mgJump to med 4 mg, IntraVENous, Every 6 hours PRN, nausea, vomiting, Starting on Fri04/28/24 at 0930, Administer if oral route cannot be used. Scheduled Medication Order 05/30/2024 05/31/2024 06/01/2024 carvedilol (Coreg) tablet 25 mg 25 mg, Oral, 2 times daily with meals, First dose (after last modification) on Fri05/29/24 at 1700 0944 (Given - Provider: King Jackson RN)1602 (Given - Provider: King Jackson RN) 0857 (Given - Provider: Kira Snatos RN)1758 (Given - Provider: Kira Santos RN) 0800 (Given - Provider: More Rojas RN)1700 (Canceled Entry - Provider: Automatic Discharge Provider - Comment: Automatically canceled at discontinue of medication order) cholecalciferol (Vitamin D-3) tablet 4,000 Units 4,000 Units, Oral, Daily, First dose on Fri05/31/24 at 1315, Ok to crush 1759 (Given - Provider: Kira Santos RN) 0900 (Not Given - Provider: More Rojas RN - Reason: Other) hydrALAZINE (Apresoline) tablet 25 mg 25 mg, Oral, 3 times daily, First dose on Fri05/28/24 at 1600 0945 (Given - Provider: King Jackson RN)1602 (Given - Provider: King Jackson RN)2045 (Given - Provider: Tita Hernandez RN) 0900 (Given - Provider: Kira Santos RN)1400 (Not Given - Provider: Kira Santos RN - Reason: NPO)2100 (Not Given - Provider: Jennifer Machado RN - Reason: Patient/family refused) 0850 (Given - Provider: More Rojas RN)1400 (Not Given - Provider: More Rojas RN - Reason: Patient/family refused) isosorbide dinitrate (Isordil) tablet 20 mg 20 mg, Oral, 3 times daily, First dose on Fri05/28/24 at 1600 0945 (Given - Provider: King Jackson RN)1604 (Given - Provider: King Jackson RN)2045 (Given - Provider: Tita Hernandez RN) 0900 (Given - Provider: Kira Santos RN)1400 (Not Given - Provider: Kira Santos RN - Reason: NPO)2100 (Not Given - Provider: Jennifer Machado RN - Reason: Patient/family refused) 0900 (Given - Provider: More Rojas RN)1400 (Not Given - Provider: More Rojas RN - Reason: Patient/family refused) sodium bicarbonate tablet 1,300 mg 1,300 mg, Oral, 2 times daily, First dose (after last modification) on Fri05/31/24 at 2100 2100 (Not Given - Provider: Jennifer Machado RN - Reason: Patient/family refused) 0853 (Given - Provider: More Rojas RN) sodium bicarbonate tablet 650 mg (CANCELED) 650 mg, Oral, 2 times daily, First dose on Fri05/29/24 at 0900 0944 (Given - Provider: King Jackson RN)2045 (Given - Provider: Tita Hernandez RN) 0900 (Given - Provider: Kira Santos RN) PRN Medication Order 05/30/2024 05/31/2024 06/01/2024 acetaminophen (Tylenol) suppository 650 mg(Linked Group 1) 650 mg, Rectal, Every 6 hours PRN, mild pain (1-3), fever, For temp greater than 100.4 F (38 C), Starting on Fri05/28/24 at 1244, Administer if oral route cannot be used. Maximum dose of acetaminophen is 4000 mg from all sources in 24 hours. acetaminophen (Tylenol) tablet 650 mg(Linked Group 1) 650 mg, Oral, Every 6 hours PRN, mild pain (1-3), fever, For temp greater than 100.4 F (38 C), Starting on Fri05/28/24 at 1244, Maximum dose of acetaminophen is 4000 mg from all sources in 24 hours. ondansetron (Zofran) injection 4 mg(Linked Group 2) 4 mg, IntraVENous, Every 6 hours PRN, nausea, vomiting, Starting on Fri05/28/24 at 1244, 1st Line. Give IV if patient is unable to take orally. If inadequate response within 60 minutes, proceed to next-line agent or contact provider if no further options ordered. ondansetron ODT (Zofran-ODT) disintegrating tablet 4 mg(Linked Group 2) 4 mg, Oral, Every 8 hours PRN, nausea, vomiting, Starting on Fri05/28/24 at 1244, 1st Line. If inadequate response within 60 minutes, proceed to next-line agent or contact provider if no further options ordered. Patient should allow tablet to dissolve on tongue. Do not remove from blister pack until just before administering. polyethylene glycol (PEG) 3350 (Miralax) packet 17 g 17 g, Oral, Daily PRN, constipation, Starting on Fri05/28/24 at 1244, 1st line for treatment of constipation - give scheduled if no bowel movement in past 24 hours. Linked Groups Order Group 1: acetaminophen (Tylenol) tablet 650 mgJump to med 650 mg, Oral, Every 6 hours PRN, mild pain (1-3), fever, For temp greater than 100.4 F (38 C), Starting on Fri05/28/24 at 1244, Maximum dose of acetaminophen is 4000 mg from all sources in 24 hours. Or acetaminophen (Tylenol) suppository 650 mgJump to med 650 mg, Rectal, Every 6 hours PRN, mild pain (1-3), fever, For temp greater than 100.4 F (38 C), Starting on Fri05/28/24 at 1244, Administer if oral route cannot be used. Maximum dose of acetaminophen is 4000 mg from all sources in 24 hours. Group 2: ondansetron ODT (Zofran-ODT) disintegrating tablet 4 mgJump to med 4 mg, Oral, Every 8 hours PRN, nausea, vomiting, Starting on Fri05/28/24 at 1244, 1st Line. If inadequate response within 60 minutes, proceed to next-line agent or contact provider if no further options ordered. Patient should allow tablet to dissolve on tongue. Do not remove from blister pack until just before administering. Or ondansetron (Zofran) injection 4 mgJump to med 4 mg, IntraVENous, Every 6 hours PRN, nausea, vomiting, Starting on Fri05/28/24 at 1244, 1st Line. Give IV if patient is unable to take orally. If inadequate response within 60 minutes, proceed to next-line agent or contact provider if no further options ordered. Scheduled Medication Order 06/01/2024 06/02/202406/0306/03/2024 enoxaparin (Lovenox) syringe 80 mg (COMPLETED) 80 mg (rounded from 81.6 mg = 1 mg/kg 81.6 kg), SubCUTAneous, Once, On Benita 06/03/24 at 2020, For 1 dose, Indication of Use: Treatment-DVT/PE 2025 (Given - Provid er: Louise Wakefield RN) Scheduled Medication Order 06/19/2024 06/20/2024 06/21/2024 apixaban (Eliquis) tablet 10 mg(Linked Group 1) 10 mg, Oral, 2 times daily, First dose on Benita 06/17/24 at 2100, For 7 days, Anticoagulant 0929 (Given - Provider: King Jackson RN)1946 (Given - Provider: Maylin Washington RN) 0948 (Given - Provider: King Jackson RN)2047 (Given - Provider: Maylin Washington RN) 0929 (Given - Provider: Chloé Chilel RN) apixaban (Eliquis) tablet 5 mg(Linked Group 1) 5 mg, Oral, 2 times daily, First dose on Benita 06/24/24 at 2100, Anticoagulant carvedilol (Coreg) tablet 25 mg 25 mg, Oral, 2 times daily with meals, First dose on Fri06/13/24 at 1930 0931 (Given - Provider: King Jackson RN)1714 (Given - Provider: King Jackson RN) 0948 (Given - Provider: King Jackson RN)1712 (Given - Provider: King Jackson RN) 0932 (Given - Provider: Chloé Chilel RN)1700 (Canceled Entry - Provider: Automatic Discharge Provider - Comment: Automatically canceled at discontinue of medication order) cholecalciferol (Vitamin D-3) tablet 4,000 Units 4,000 Units, Oral, Daily, First dose on Fri06/14/24 at 0900 0933 (Given - Provider: King Jackson RN) 0950 (Given - Provider: King Jackson RN) 0942 (Given - Provider: Chloé Chilel RN) furosemide (Lasix) tablet 40 mg 40 mg, Oral, Daily, First dose on Fri06/21/24 at 1115 1115 (Not Given - Provider: Chloé Chilel RN - Reason: Patient/family refused) hydrALAZINE (Apresoline) tablet 50 mg 50 mg, Oral, 3 times daily, First dose (after last modification) on Fri06/17/24 at 1400 0931 (Given - Provider: King Jackson RN)1400 (Not Given - Provider: King Jackson RN - Reason: Patient/family refused)1945 (Given - Provider: Maylin Washington RN) 0948 (Given - Provider: King Jackson RN)141 (Given - Provider: King Jackson RN)2046 (Given - Provider: Maylin Washington RN) 0931 (Given - Provider: Chloé Chilel RN)1426 (Given - Provider: Chloé Chilel RN) influenza vaccine tiss-cult subunt (Flucelvax) STANDARD-DOSE injection 0.5 mL 0.5 mL, IntraMUSCular, Prior to discharge, Starting on Fri06/14/24 at 0900, For 1 dose isosorbide dinitrate (Isordil) tablet 30 mg 30 mg, Oral, 3 times daily, First dose (after last modification) on Fri06/17/24 at 1400 0932 (Given - Provider: King Jackson RN)1400 (Not Given - Provider: King Jackson RN - Reason: Patient/family refused)1944 (Given - Provider: Maylin Washington RN) 0948 (Given - Provider: King Jackson RN)141 (Given - Provider: King Jackson RN)2046 (Given - Provider: Maylin Washington RN) 0930 (Given - Provider: Chloé Chilel RN)1426 (Given - Provider: Chloé Chilel RN) magnesium hydroxide (Milk of Magnesia) 400 MG/5ML suspension 30 mL 30 mL, Oral, Nightly, First dose on Fri06/16/24 at 2100, Follow dose with 8 oz of water. 1947 (Not Given - Provider: Maylin Washington RN - Reason: Patient/family refused) 1939 (Not Given - Provider: Maylin Washington RN - Reason: Patient/family refused) pantoprazole (ProtoNix) EC tablet 40 mg 40 mg, Oral, 2 times daily before meals, First dose on Fri06/13/24 at 1715, Do not crush, chew, or split. 0700 (Not Given - Provider: Maylin Washington RN - Reason: Patient/family refused)1600 (Not Given - Provider: King Jackson RN - Reason: Patient/family refused) 0700 (Not Given - Provider: Maylin Washington RN - Reason: Patient/family refused)1600 (Not Given - Provider: King Jackson RN - Reason: Patient/family refused) 0700 (Not Given - Provider: Maylin Washington RN - Reason: Patient/family refused)1600 (Canceled Entry - Provider: Automatic Discharge Provider - Comment: Automatically canceled at discontinue of medication order) sodium bicarbonate tablet 1,300 mg 1,300 mg, Oral, 2 times daily, First dose on 06/13/24 at 2100 0933 (Given - Provider: King Jackson RN)1946 (Given - Provider: Maylin Washington RN) 0955 (Given - Provider: King Jackson RN)2046 (Given - Provider: Maylin Washington RN) 0929 (Given - Provider: Chloé Chilel RN) PRN Medication Order 06/19/2024 06/20/2024 06/21/2024 acetaminophen (Tylenol) suppository 650 mg(Linked Group 2) 650 mg, Rectal, Every 6 hours PRN, mild pain (1-3), fever, For temp greater than 100.4 F (38 C), Starting on 06/13/24 at 1704, Administer if oral route cannot be used. Maximum dose of acetaminophen is 4000 mg from all sources in 24 hours. acetaminophen (Tylenol) tablet 650 mg(Linked Group 2) 650 mg, Oral, Every 6 hours PRN, mild pain (1-3), fever, For temp greater than 100.4 F (38 C), Starting on 06/13/24 at 1704, Maximum dose of acetaminophen is 4000 mg from all sources in 24 hours. ondansetron (Zofran) injection 4 mg(Linked Group 3) 4 mg, IntraVENous, Every 6 hours PRN, nausea, vomiting, Starting on 06/13/24 at 1704, Administer if oral route cannot be used. ondansetron ODT (Zofran-ODT) disintegrating tablet 4 mg(Linked Group 3) 4 mg, Oral, Every 8 hours PRN, nausea, vomiting, Starting on 06/13/24 at 1704, Patient should allow tablet to dissolve on tongue. Do not remove from blister pack until just before administering. polyethylene glycol (PEG) 3350 (Miralax) packet 17 g 17 g, Oral, Daily PRN, constipation, Starting on 06/13/24 at 1704, 1st line for treatment of constipation - give scheduled if no bowel movement in past 24 hours. Linked Groups Order Group 1: apixaban (Eliquis) tablet 10 mgJump to med 10 mg, Oral, 2 times daily, First dose on Benita 06/17/24 at 2100, For 7 days, Anticoagulant Followed by apixaban (Eliquis) tablet 5 mgJump to med 5 mg, Oral, 2 times daily, First dose on Benita 06/24/24 at 2100, Anticoagulant Group 2: acetaminophen (Tylenol) tablet 650 mgJump to med 650 mg, Oral, Every 6 hours PRN, mild pain (1-3), fever, For temp greater than 100.4 F (38 C), Starting on 06/13/24 at 1704, Maximum dose of acetaminophen is 4000 mg from all sources in 24 hours. Or acetaminophen (Tylenol) suppository 650 mgJump to med 650 mg, Rectal, Every 6 hours PRN, mild pain (1-3), fever, For temp greater than 100.4 F (38 C), Starting on 06/13/24 at 1704, Administer if oral route cannot be used. Maximum dose of acetaminophen is 4000 mg from all sources in 24 hours. Group 3: ondansetron ODT (Zofran-ODT) disintegrating tablet 4 mgJump to med 4 mg, Oral, Every 8 hours PRN, nausea, vomiting, Starting on 06/13/24 at 1704, Patient should allow tablet to dissolve on tongue. Do not remove from blister pack until just before administering. Or ondansetron (Zofran) injection 4 mgJump to med 4 mg, IntraVENous, Every 6 hours PRN, nausea, vomiting, Starting on 06/13/24 at 1704, Administer if oral route cannot be used. Scheduled Medication Order 07/03/2024 07/04/2024 07/05/2024 apixaban (Eliquis) tablet 5 mg 5 mg, Oral, 2 times daily, First dose on 07/03/24 at 2145, For 50 days, Anticoagulant 2204 (Not Given - Provider: Eugene Aiken RN - Reason: Patient/family refused - Comment: Pt refused PO pills at this time. He states that it has been too long since i have eaten and i will just throw them up and that i would rather just wait until morning. RN attempted to educate pt on importance of taking medication. Pt continues to decline to take any PO medications at this time.) 08 (Given - Provider: Eva Torres RN)2055 (Given - Provider: Ladarius Luong, CRISTINE) 0944 (Given - Provider: Anshul Hadley, CRISTINE) cholecalciferol (Vitamin D-3) tablet 4,000 Units 4,000 Units, Oral, Daily, First dose on 07/04/24 at 0900 0900 (Not Given - Provider: Eva Torres RN - Reason: Medication not available) 943 (Given - Provider: Anshul Hadley RN) furosemide (Lasix) injection 80 mg (COMPLETED) 80 mg, IntraVENous, Once, On 07/03/24 at 2145, For 1 dose 2204 (Given - Provider: Eugene Aiken RN) furosemide (Lasix) injection 80 mg (CANCELED) 80 mg, IntraVENous, 2 times daily, First dose (after last modification) on 07/04/24 at 0900 0927 (Given - Provider: Eva Torres RN) furosemide (Lasix) injection 80 mg (CANCELED) 80 mg, IntraVENous, 2 times daily, First dose (after last modification) on 07/04/24 at 1700, On hold since Fri07/05/2024 at 0638 until manually unheld 1721 (Given - Provider: Joe Hermosillo RN) 0638 (Held by provider - Provider: Roopa Lugo DO - Reason: Other - Comment: Refused morning labs. Electrolytes levels unknown)0900 (Dose Auto Held - Provider: Roopa Lugo DO)0923 (Unheld by provider - Provider: Roopa Lugo DO) furosemide (Lasix) tablet 40 mg 40 mg, Oral, Daily, First dose on Fri07/05/24 at 0930 0944 (Given - Provider: Anshul Hadley, RN) hydrALAZINE (Apresoline) tablet 100 mg (CANCELED) 100 mg, Oral, 3 times daily, First dose on 07/03/24 at 2145 2205 (Not Given - Provider: Eugene Aiken RN - Reason: Patient/family refused - Comment: Pt refused PO pills at this time. He states that it has been too long since i have eaten and i will just throw them up and that i would rather just wait until morning. RN attempted to educate pt on importance of taking medication. Pt continues to decline to take any PO medications at this time.) 08 (Given - Provider: Eva Torres RN)1422 (Given - Provider: Joe Hermosillo RN)2055 (Given - Provider: Ladarius Luong RN) 0900 (Not Given - Provider: Anshul Hadley RN - Reason: See Provider Order) isosorbide dinitrate (Isordil) tablet 30 mg (CANCELED) 30 mg, Oral, 3 times daily, First dose on 07/03/24 at 2145 2205 (Not Given - Provider: Eugene Aiken RN - Reason: Patient/family refused - Comment: Pt refused PO pills at this time. He states that it has been too long since i have eaten and i will just throw them up and that i would rather just wait until morning. RN attempted to educate pt on importance of taking medication. Pt continues to decline to take any PO medications at this time.) 08 (Given - Provider: Eva Torres RN) isosorbide dinitrate (Isordil) tablet 40 mg (CANCELED) 40 mg, Oral, 3 times daily, First dose (after last modification) on Fri07/04/24 at 1400 1423 (Given - Provider: Joe Hermosillo RN)2055 (Given - Provider: Ladarius Luong, CRISTINE) 09 (Not Given - Provider: Anshul Hadley, RN - Reason: See Provider Order) losartan (Cozaar) tablet 25 mg 25 mg, Oral, Daily, First dose on 07/05/24 at 0930 0944 (Given - Provider: Anshul Hadley, RN) morphine injection 4 mg (COMPLETED) 4 mg, IntraVENous, Once, On 07/03/24 at 0930, For 1 dose, If oral and IV narcotics ordered, use oral first and only use IV if oral is ineffective or cannot take oral. Do Not give oral and IV within 1 hour of each other unless specifically ordered. 1108 (Given - Provider: Shanti Rodriguez RN) mupirocin (Bactroban) 2 % ointment 1 Application 1 Application, Nasal, 2 times daily, First dose on 07/03/24 at 2145, For 5 days, Indications: MRSA Nasal Decolonization 2204 (Given - Provider: Eugene Aiken RN) 08 (Not Given - Provider: Eva Torres RN - Reason: Patient/family refused)2100 (Not Given - Provider: Ladarius Luong RN - Reason: Patient/family refused) 100 (Given - Provider: Anshul Hadley, RN) ondansetron (Zofran) injection 4 mg (COMPLETED) 4 mg, IntraVENous, Once, On 07/03/24 at 0930, For 1 dose 1108 (Given - Provider: Shanti Rodriguez RN) potassium chloride (Klor-Con) packet 40 mEq (COMPLETED) 40 mEq, Oral, Once, On 07/04/24 at 1400, For 1 dose, Dissolve each packet in 4 ounces of water = 5 mEq per 1 oz fluid., Indications: Hypokalemia 1424 (Given - Provider: Joe Hermosillo RN) sodium bicarbonate tablet 1,300 mg 1,300 mg, Oral, 2 times daily, First dose on 07/03/24 at 2230 2230 (Not Given - Provider: Eugene Aiken RN - Reason: Patient/family refused - Comment: Pt refused PO pills at this time. He states that it has been too long since i have eaten and i will just throw them up and that i would rather just wait until morning. RN attempted to educate pt on importance of taking medication. Pt continues to decline to take any PO medications at this time.) 08 (Given - Provider: Eva Torres RN)2056 (Given - Provider: Ladarius Luong, CRISTINE) 0944 (Given - Provider: Anshul Hadley, CRISTINE) Continuous Medication Order 07/03/2024 07/04/2024 07/05/2024 nitroprusside in sodium chloride 0.9 % (500 mcg/mL) (Nipride) infusion (CANCELED) 0.3-3 mcg/kg/min 82.2 kg (2.9592-29.592 mL/hr, rounded to 2.96-29.59 mL/hr), IntraVENous, Continuous, Starting on 07/04/24 at 0930, If ordered with a ranged dose and not at goal parameter(s), initiate at lowest dose in ordered range. Titrate by 0.5 mcg/kg/min every 5 minutes as needed to reach and maintain goal. Contact prescriber if unable to maintain goal at max ordered dose., Titrate Infusion? Yes, Initial Infusion Dose: 0.25 mcg/kg/min, Goal of Therapy is: MAP, MAP Goal: Other, Goal MAP less than: 65-75, Contact Provider if: SBP less than 90 mmHg 1023 (New Bag - Provider: Eva Torres RN)1100 (Rate/Dose Change - Provider: Eva Torres RN)1130 (Rate/Dose Change - Provider: Joe Hermosillo RN)1203 (Rate/Dose Change - Provider: Joe Hermosillo RN)1217 (Rate/Dose Change - Provider: Joe Hermosillo RN)1300 (Rate/Dose Change - Provider: Joe Hermosillo RN)1359 (New Bag - Provider: Joe Hermosillo RN)1605 (New Bag - Provider: Joe Hermosillo RN)1720 (Rate/Dose Change - Provider: Joe Hermosillo RN)1751 (Rate/Dose Change - Provider: Joe Hermosillo RN)1951 (Stopped - Provider: Joe Hermosillo RN - Comment: per pt request) PRN Medication Order 07/03/2024 07/04/2024 07/05/2024 Acetaminophen (Tylenol) 650 MG/20.3ML solution 1,000 mg 1,000 mg, Oral, Every 8 hours PRN, mild pain (1-3), Starting on 07/04/24 at 1204 1214 (Given - Provider: Joe Hermosillo RN) ondansetron (Zofran) injection 4 mg(Linked Group 1) 4 mg, IntraVENous, Every 6 hours PRN, nausea, vomiting, Starting on 07/03/24 at 2135, 1st Line. Give IV if patient is unable to take orally. If inadequate response within 60 minutes, proceed to next-line agent or contact provider if no further options ordered. ondansetron ODT (Zofran-ODT) disintegrating tablet 4 mg(Linked Group 1) 4 mg, Oral, Every 8 hours PRN, nausea, vomiting, Starting on 07/03/24 at 2135, 1st Line. If inadequate response within 60 minutes, proceed to next-line agent or contact provider if no further options ordered. Patient should allow tablet to dissolve on tongue. Do not remove from blister pack until just before administering. Linked Groups Order Group 1: ondansetron ODT (Zofran-ODT) disintegrating tablet 4 mgJump to med 4 mg, Oral, Every 8 hours PRN, nausea, vomiting, Starting on 07/03/24 at 2135, 1st Line. If inadequate response within 60 minutes, proceed to next-line agent or contact provider if no further options ordered. Patient should allow tablet to dissolve on tongue. Do not remove from blister pack until just before administering. Or ondansetron (Zofran) injection 4 mgJump to med 4 mg, IntraVENous, Every 6 hours PRN, nausea, vomiting, Starting on 07/03/24 at 2135, 1st Line. Give IV if patient is unable to take orally. If inadequate response within 60 minutes, proceed to next-line agent or contact provider if no further options ordered. Scheduled Medication Order 07/14/2024 07/15/2024 07/16/2024 apixaban (Eliquis) tablet 5 mg 5 mg, Oral, 2 times daily, First dose on 07/12/24 at 2000, Anticoagulant 0817 (Given - Provider: Hortencia Pace, CRISTINE)2019 (Given - Provider: Dorothy Garcia, CRISTINE) 1028 (Given - Provider: Hortencia Pace, CRISTINE)2016 (Given - Provider: Sue Schuler, CRISTINE) 0931 (Given - Provider: Pauline Schroeder RN) carvedilol (Coreg) tablet 12.5 mg (CANCELED) 12.5 mg, Oral, 2 times daily with meals, First dose (after last modification) on Benita 07/15/24 at 1700 2015 (Given - Provider: Sue Schuler, CRISTINE) carvedilol (Coreg) tablet 25 mg 25 mg, Oral, 2 times daily with meals, First dose (after last modification) on Fri07/16/24 at 0800 0931 (Given - Provider: Pauline Schroeder RN)1700 (Canceled Entry - Provider: Automatic Discharge Provider - Comment: Automatically canceled at discontinue of medication order) carvedilol (Coreg) tablet 3.125 mg (CANCELED) 3.125 mg, Oral, 2 times daily with meals, First dose on Fri07/14/24 at 0800 0817 (Given - Provider: Hortencia Pace RN) carvedilol (Coreg) tablet 6.25 mg (CANCELED) 6.25 mg, Oral, 2 times daily with meals, First dose (after last modification) on Fri07/14/24 at 1700 2019 (Given - Provider: Dorothy Garcia RN - Comment: pt request) 1029 (Given - Provider: Hortencia Pace RN) cholecalciferol (Vitamin D-3) tablet 4,000 Units 4,000 Units, Oral, Daily, First dose on Fri07/12/24 at 0900 0817 (Given - Provider: Hortencia Pace RN) 1029 (Given - Provider: Hortencia Pace RN) 0933 (Given - Provider: Pauline Schroeder RN) magnesium oxide (Mag-Ox) tablet 400 mg (COMPLETED) 400 mg, Oral, Once, On Fri07/15/24 at 1100, For 1 dose 1333 (Given - Provider: Puja Monterroso RN) metoprolol tartrate (Lopressor) injection 5 mg (COMPLETED) 5 mg, IntraVENous, Once, On Fri07/14/24 at 0445, For 1 dose 0444 (Self Administered Via Pump - Provider: Leatha Lancaster, CRISTINE) sacubitril-valsartan (Entresto) 49-51 MG per tablet 1 tablet (CANCELED) 1 tablet, Oral, 2 times daily, First dose on Fri07/13/24 at 2100, Contraindicated in combination with LUCRECIA inhibitors. Ensure a minimum of 36 hours between any LUCRECIA inhibitor dose and sacubitril-valsartan. 08 (Given - Provider: Hortencia Pace RN)2019 (Given - Provider: Dorothy Garcia, CRISTINE) sacubitril-valsartan (Entresto) 97-103 MG per tablet 1 tablet 1 tablet, Oral, 2 times daily, First dose on Fri07/15/24 at 0900, Contraindicated in combination with LUCRECIA inhibitors. Ensure a minimum of 36 hours between any LUCRECIA inhibitor dose and sacubitril-valsartan. 1029 (Given - Provider: Hortencia Pace, RN)2018 (Given - Provider: Sue Schuler, RN) 0931 (Given - Provider: Pauline Schroeder RN) sodium bicarbonate tablet 1,300 mg 1,300 mg, Oral, 2 times daily, First dose on Fri07/12/24 at 0900 0817 (Given - Provider: Hortencia Pace RN)2018 (Given - Provider: Dorothy Garcia RN) 1029 (Given - Provider: Hortencia Pace RN)2015 (Given - Provider: Sue Schuler RN) 0931 (Given - Provider: Pauline Schroeder, RN) spironolactone (Aldactone) tablet 12.5 mg 12.5 mg, Oral, Daily, First dose on Fri07/16/24 at 0900 PRN Medication Order 07/14/2024 07/15/2024 07/16/2024 acetaminophen (Tylenol) suppository 650 mg(Linked Group 1) 650 mg, Rectal, Every 6 hours PRN, mild pain (1-3), fever, For temp greater than 100.4 F (38 C), Starting on Fri07/12/24 at 0457, Administer if oral route cannot be used. Maximum dose of acetaminophen is 4000 mg from all sources in 24 hours. acetaminophen (Tylenol) tablet 650 mg(Linked Group 1) 650 mg, Oral, Every 6 hours PRN, mild pain (1-3), fever, For temp greater than 100.4 F (38 C), Starting on Fri07/12/24 at 0457, Maximum dose of acetaminophen is 4000 mg from all sources in 24 hours. ondansetron (Zofran) injection 4 mg(Linked Group 2) 4 mg, IntraVENous, Every 6 hours PRN, nausea, vomiting, Starting on Fri07/12/24 at 0457, Administer if oral route cannot be used. 0743 (Given - Provid er: Pauline Schroeder RN) ondansetron ODT (Zofran-ODT) disintegrating tablet 4 mg(Linked Group 2) 4 mg, Oral, Every 8 hours PRN, nausea, vomiting, Starting on Fri07/12/24 at 0457, Patient should allow tablet to dissolve on tongue. Do not remove from blister pack until just before administering. 0743 (See Alternativ e - Provider: Pauline Schroeder RN) polyethylene glycol (PEG) 3350 (Miralax) packet 17 g 17 g, Oral, Daily PRN, constipation, Starting on Fri07/12/24 at 0457, 1st line for treatment of constipation - give scheduled if no bowel movement in past 24 hours. Linked Groups Order Group 1: acetaminophen (Tylenol) tablet 650 mgJump to med 650 mg, Oral, Every 6 hours PRN, mild pain (1-3), fever, For temp greater than 100.4 F (38 C), Starting on Fri07/12/24 at 0457, Maximum dose of acetaminophen is 4000 mg from all sources in 24 hours. Or acetaminophen (Tylenol) suppository 650 mgJump to med 650 mg, Rectal, Every 6 hours PRN, mild pain (1-3), fever, For temp greater than 100.4 F (38 C), Starting on Fri07/12/24 at 0457, Administer if oral route cannot be used. Maximum dose of acetaminophen is 4000 mg from all sources in 24 hours. Group 2: ondansetron ODT (Zofran-ODT) disintegrating tablet 4 mgJump to med 4 mg, Oral, Every 8 hours PRN, nausea, vomiting, Starting on Fri07/12/24 at 0457, Patient should allow tablet to dissolve on tongue. Do not remove from blister pack until just before administering. Or ondansetron (Zofran) injection 4 mgJump to med 4 mg, IntraVENous, Every 6 hours PRN, nausea, vomiting, Starting on Fri07/12/24 at 0457, Administer if oral route cannot be used. Scheduled Medication Order 07/28/2024 07/29/2024 07/30/2024 apixaban (Eliquis) tablet 5 mg 5 mg, Oral, 2 times daily, First dose on 07/24/24 at 0900, Anticoagulant 0914 (Given - Provider: Phyllis Luna RN)2015 (Given - Provider: Sue Schuler RN) 0856 (Given - Provider: Tamiko Live RN)2000 (Given - Provider: Sue Schuler RN) 0840 (Given - Provider: Tamiko Live RN) carvedilol (Coreg) tablet 25 mg 25 mg, Oral, 2 times daily with meals, First dose on 07/24/24 at 0800 0914 (Given - Provider: Phyllis Luna RN)2015 (Given - Provider: Sue Schuler RN) 0901 (Given - Provider: Tamiko Live RN)2000 (Given - Provider: Sue Schuler RN) 0840 (Given - Provider: Tamiko Live RN) cholecalciferol (Vitamin D-3) tablet 4,000 Units 4,000 Units, Oral, Daily, First dose on 07/24/24 at 0900 0916 (Given - Provider: Phyllis Luna RN) 0902 (Given - Provider: Tamiko Live RN) 0841 (Given - Provider: Tamiko Live RN) furosemide (Lasix) injection 40 mg (CANCELED) 40 mg, IntraVENous, 2 times daily, First dose on Benita 07/29/24 at 0900 0856 (Given - Provider: Tamiko Live RN) furosemide (Lasix) injection 40 mg (COMPLETED) 40 mg, IntraVENous, Once, On Benita 07/29/24 at 1545, For 1 dose 1734 (Given - Provider: Tamiko Live RN) furosemide (Lasix) injection 40 mg 40 mg, IntraVENous, 2 times daily, First dose on Fri07/30/24 at 1415 1415 (Canceled Entry - Provider: Automatic Discharge Provider - Comment: Automatically canceled at discontinue of medication order) furosemide (Lasix) injection 80 mg (CANCELED) 80 mg, IntraVENous, 2 times daily, First dose (after last modification) on 07/24/24 at 2100 0914 (Given - Provider: Phyllis Luna RN - Comment: pt. refused other 40 mg)2100 (Not Given - Provider: Sue Schuler RN - Reason: Patient/family refused) losartan (Cozaar) tablet 25 mg 25 mg, Oral, Daily, First dose on Benita 07/29/24 at 0900 0856 (Given - Provider: Tamiko Live RN) 0837 (Given - Provider: Tamiko Live RN) magnesium oxide (Mag-Ox) tablet 400 mg 400 mg, Oral, Daily, First dose on Benita 07/29/24 at 1130 1307 (Given - Provider: Tamiko Live RN) 0837 (Given - Provider: Tamiko Live RN) potassium chloride CR (Klor-Con M10) ER tablet 40 mEq (COMPLETED) 40 mEq, Oral, Once, On Benita 07/29/24 at 0915, For 1 dose, Best given with food and plenty of water to minimize gastric irritation. Do not crush or chew. 0926 (Given - Provider: Tamiko Live RN) potassium chloride CR (Klor-Con M10) ER tablet 40 mEq 40 mEq, Oral, 3 times daily, First dose (after last reorder) on Fri07/30/24 at 0900, For 3 doses, Best given with food and plenty of water to minimize gastric irritation. Do not crush or chew. 0837 (Given - Provider: Tamiko Live RN)1222 (Given - Provider: Tamiko Live RN) sodium bicarbonate tablet 1,300 mg 1,300 mg, Oral, 2 times daily, First dose on 07/24/24 at 0220 0900 (Given - Provider: Phyllis Luna RN)2015 (Given - Provider: Sue Schuler, RN) 0856 (Given - Provider: Tamiko Live, CRISTINE)2000 (Given - Provider: Sue Schuler, RN) 0840 (Given - Provider: Tamiko Live, CRISTINE) spironolactone (Aldactone) tablet 12.5 mg 12.5 mg, Oral, Daily, First dose on Fri07/30/24 at 1045 1222 (Given - Provider: Tamiko Live, CRISTINE) PRN Medication Order 07/28/2024 07/29/2024 07/30/2024 acetaminophen (Tylenol) suppository 650 mg(Linked Group 1) 650 mg, Rectal, Every 6 hours PRN, fever, For temp greater than 100.4 F (38 C), Starting on 07/24/24 at 0216, Administer if oral route cannot be used. Maximum dose of acetaminophen is 4000 mg from all sources in 24 hours. acetaminophen (Tylenol) tablet 650 mg(Linked Group 1) 650 mg, Oral, Every 6 hours PRN, mild pain (1-3), fever, For temp greater than 100.4 F (38 C), Starting on 07/24/24 at 0216, Maximum dose of acetaminophen is 4000 mg from all sources in 24 hours. ondansetron (Zofran) injection 4 mg(Linked Group 2) 4 mg, IntraVENous, Every 6 hours PRN, nausea, vomiting, Starting on 07/24/24 at 0216, Administer if oral route cannot be used. ondansetron ODT (Zofran-ODT) disintegrating tablet 4 mg(Linked Group 2) 4 mg, Oral, Every 8 hours PRN, nausea, vomiting, Starting on 07/24/24 at 0216, Patient should allow tablet to dissolve on tongue. Do not remove from blister pack until just before administering. polyethylene glycol (PEG) 3350 (Miralax) packet 17 g 17 g, Oral, Daily PRN, constipation, Starting on 07/24/24 at 0216, 1st line for treatment of constipation - give scheduled if no bowel movement in past 24 hours. Linked Groups Order Group 1: acetaminophen (Tylenol) tablet 650 mgJump to med 650 mg, Oral, Every 6 hours PRN, mild pain (1-3), fever, For temp greater than 100.4 F (38 C), Starting on 07/24/24 at 0216, Maximum dose of acetaminophen is 4000 mg from all sources in 24 hours. Or acetaminophen (Tylenol) suppository 650 mgJump to med 650 mg, Rectal, Every 6 hours PRN, fever, For temp greater than 100.4 F (38 C), Starting on 07/24/24 at 0216, Administer if oral route cannot be used. Maximum dose of acetaminophen is 4000 mg from all sources in 24 hours. Group 2: ondansetron ODT (Zofran-ODT) disintegrating tablet 4 mgJump to med 4 mg, Oral, Every 8 hours PRN, nausea, vomiting, Starting on 07/24/24 at 0216, Patient should allow tablet to dissolve on tongue. Do not remove from blister pack until just before administering. Or ondansetron (Zofran) injection 4 mgJump to med 4 mg, IntraVENous, Every 6 hours PRN, nausea, vomiting, Starting on Fri07/24/24 at 0216, Administer if oral route cannot be used. Scheduled Medication Order 08/18/2024 08/19/2024 08/20/2024 apixaban (Eliquis) tablet 5 mg 5 mg, Oral, 2 times daily, First dose on Fri08/10/24 at 2100, Anticoagulant 0854 (Given - Provider: Sonia Zambrano RN)2100 (Given - Provider: Yue Patterson RN) 1017 (Given - Provider: Sonia Zambrano RN)2100 (Given - Provider: Yue Patterson RN) 0909 (Given - Provider: Jacque Clark RN) bumetanide (Bumex) injection 3 mg (CANCELED) 3 mg, IntraVENous, Administer over 1 Minutes, 3 times daily before meals, First dose on Fri08/13/24 at 1100 0854 (Given - Provider: Sonia Zambrano RN)1340 (Given - Provider: Sonia Zambrano RN - Comment: patient request receive after eating)1831 (Given - Provider: Sonia Zambrano RN - Comment: patient request to do after dinner) 1015 (Given - Provider: Sonia Zambrano RN - Comment: patient requested time change) bumetanide (Bumex) tablet 1 mg 1 mg, Oral, 2 times daily, First dose on Fri08/20/24 at 0600 0906 (Given - Provider: Jacque Clark RN)1500 (Canceled Entry - Provider: Automatic Discharge Provider - Comment: Automatically canceled at discontinue of medication order) calcitriol (Rocaltrol) capsule 0.5 mcg 0.5 mcg, Oral, 2 times daily, First dose on Fri08/20/24 at 1115 1115 (Not Given - Provider: Jacque Clark RN - Reason: Patient/family refused - Comment: dr adelia cross.) calcium carbonate (Tums) chewable tablet 1,000 mg 1,000 mg, Oral, 3 times daily, First dose (after last modification) on Fri08/20/24 at 1115 1229 (Given - Provider: Jacque Clark RN) calcium gluconate 2000 mg in 100 mL IVPB premix 2,000 mg, IntraVENous, at 50 mL/hr, Administer over 2 Hours, Once, On Fri08/18/24 at 0915, For 1 dose, premix bag 0915 (Not Given - Provider: Sonia Zambrano RN - Reason: Patient/family refused - Comment: dr aguilar notified) calcium gluconate 2000 mg in 100 mL IVPB premix 2,000 mg, IntraVENous, at 50 mL/hr, Administer over 2 Hours, Every 4 hours, First dose on Fri08/20/24 at 1115, For 3 doses, premix bag 1115 (Not Given - Provider: Jacque Clark RN - Reason: Patient/family refused - Comment: dr adelia cross.)1515 (Canceled Entry - Provider: Automatic Discharge Provider - Comment: Automatically canceled at discontinue of medication order) ergocalciferol (Vitamin D2) capsule 1.25 mg 1.25 mg, Oral, Weekly, First dose on Fri08/20/24 at 1115 1115 (Not Given - Provider: Jacque Clark RN - Reason: Patient/family refused - Comment: dr adelia huff) hydrALAZINE (Apresoline) tablet 50 mg (CANCELED) 50 mg, Oral, 3 times daily, First dose (after last modification) on Fri08/12/24 at 1400 0854 (Given - Provider: Sonia Zambrano RN)1343 (Given - Provider: Sonia Zambrano RN)202 (Given - Provider: Yue Patterson RN) 1017 (Given - Provider: Sonia Zambrano RN) isosorbide dinitrate (Isordil) tablet 20 mg (CANCELED) 20 mg, Oral, 3 times daily, First dose (after last modification) on Fri08/12/24 at 1400 0854 (Given - Provider: Sonia Zambrano RN)1343 (Given - Provider: Sonia Zambrano RN)2100 (Given - Provider: Yue Patterson RN) 1017 (Given - Provider: Sonia Zambrano RN) losartan (Cozaar) tablet 50 mg 50 mg, Oral, Daily, First dose on Fri08/20/24 at 0900 0907 (Given - Provider: Jacque Clark, CRISTINE) magnesium oxide (Mag-Ox) tablet 400 mg (CANCELED) 400 mg, Oral, Daily, First dose on Fri08/17/24 at 0900 0854 (Given - Provider: Sonia Zambrano RN) magnesium oxide (Mag-Ox) tablet 400 mg 400 mg, Oral, 2 times daily, First dose (after last modification) on Fri08/18/24 at 2100 202 (Given - Provider: Yue Patterson RN) 1016 (Given - Provider: Sonia Zambrano RN)2100 (Given - Provider: Yue Patterson RN) 0908 (Given - Provider: Jacque Clark RN) magnesium sulfate IVPB premix 2,000 mg 2,000 mg, IntraVENous, at 25 mL/hr, Administer over 2 Hours, Daily, First dose on Fri08/18/24 at 0600, For 3 doses, Recommended infusion rate not to exceed 1,000 mg (milligrams) per hour. 0800 (Not Given - Provider: Sonia Zambrano RN - Reason: Patient/family refused - Comment: dr pam cross patient refused) 0456 (Not Given - Provider: Yue Patterson RN - Reason: Patient/family refused - Comment: Dr. Ordonez aware, and patient continues to refuse all IV continuous medications at this time) 0441 (Not Given - Provider: Yue Patterson RN - Reason: Patient/family refused) melatonin tablet 3 mg 3 mg, Oral, Nightly, First dose on Fri08/10/24 at 2100 1955 (Not Given - Provider: Yue Patterson RN - Reason: Patient/family refused) 1919 (Not Given - Provider: Yue Patterson RN - Reason: Patient/family refused) metoprolol succinate XL (Toprol-XL) 24 hr tablet 25 mg 25 mg, Oral, Daily, First dose on Fri08/19/24 at 1115, Do not crush or chew. 1449 (Given - Provider: Sonia Zambrano RN - Comment: patient request reschedule til after he has eaten) 0906 (Given - Provider: Jacque Clark RN) potassium chloride CR (Klor-Con M10) ER tablet 20 mEq (COMPLETED) 20 mEq, Oral, Once, On Fri08/20/24 at 0715, For 1 dose, Best given with food and plenty of water to minimize gastric irritation. Do not crush or chew. 0906 (Given - Provider: Jacque Clark RN) potassium chloride CR (Klor-Con M10) ER tablet 40 mEq 40 mEq, Oral, Daily, First dose on 08/14/24 at 1215, Best given with food and plenty of water to minimize gastric irritation. Do not crush or chew. 0854 (Given - Provider: Sonia Zambrano RN) 1018 (Given - Provider: Sonia Zambrano RN) 0906 (Given - Provider: Jacque Clark RN) potassium chloride CR (Klor-Con M10) ER tablet 40 mEq (COMPLETED) 40 mEq, Oral, Once, On Benita 08/19/24 at 0800, For 1 dose, Best given with food and plenty of water to minimize gastric irritation. Do not crush or chew. 1016 (Given - Provider: Sonia Zambrano RN - Comment: patient request time change) potassium chloride CR (Klor-Con M10) ER tablet 40 mEq 40 mEq, Oral, Once, On Fri08/20/24 at 1115, For 1 dose, Best given with food and plenty of water to minimize gastric irritation. Do not crush or chew. 1115 (Not Given - Provider: Jacque Clark RN - Reason: Patient/family refused - Comment: dr adelia cross.) spironolactone (Aldactone) tablet 25 mg 25 mg, Oral, Daily, First dose on Fri08/17/24 at 0900 0854 (Given - Provider: Sonia Zambrano RN) 1018 (Given - Provider: Sonia Zambrano RN) 0908 (Given - Provider: Jacque Clark RN) PRN Medication Order 08/18/2024 08/19/2024 08/20/2024 acetaminophen (Tylenol) suppository 650 mg(Linked Group 1) 650 mg, Rectal, Every 6 hours PRN, mild pain (1-3), fever, For temp greater than 100.4 F (38 C), Starting on Fri08/10/24 at 2041, Administer if oral route cannot be used. Maximum dose of acetaminophen is 4000 mg from all sources in 24 hours. acetaminophen (Tylenol) tablet 650 mg(Linked Group 1) 650 mg, Oral, Every 6 hours PRN, mild pain (1-3), fever, For temp greater than 100.4 F (38 C), Starting on Fri08/10/24 at 2041, Maximum dose of acetaminophen is 4000 mg from all sources in 24 hours. ondansetron (Zofran) injection 4 mg(Linked Group 2) 4 mg, IntraVENous, Every 6 hours PRN, nausea, vomiting, Starting on Fri08/10/24 at 2041, 1st Line. Give IV if patient is unable to take orally. If inadequate response within 60 minutes, proceed to next-line agent or contact provider if no further options ordered. ondansetron ODT (Zofran-ODT) disintegrating tablet 4 mg(Linked Group 2) 4 mg, Oral, Every 8 hours PRN, nausea, vomiting, Starting on Fri08/10/24 at 2041, 1st Line. If inadequate response within 60 minutes, proceed to next-line agent or contact provider if no further options ordered. Patient should allow tablet to dissolve on tongue. Do not remove from blister pack until just before administering. polyethylene glycol (PEG) 3350 (Miralax) packet 17 g 17 g, Oral, Daily PRN, constipation, Starting on Fri08/10/24 at 2041, 1st line for treatment of constipation - give scheduled if no bowel movement in past 24 hours. Linked Groups Order Group 1: acetaminophen (Tylenol) tablet 650 mgJump to med 650 mg, Oral, Every 6 hours PRN, mild pain (1-3), fever, For temp greater than 100.4 F (38 C), Starting on Fri08/10/24 at 2041, Maximum dose of acetaminophen is 4000 mg from all sources in 24 hours. Or acetaminophen (Tylenol) suppository 650 mgJump to med 650 mg, Rectal, Every 6 hours PRN, mild pain (1-3), fever, For temp greater than 100.4 F (38 C), Starting on Fri08/10/24 at 2041, Administer if oral route cannot be used. Maximum dose of acetaminophen is 4000 mg from all sources in 24 hours. Group 2: ondansetron ODT (Zofran-ODT) disintegrating tablet 4 mgJump to med 4 mg, Oral, Every 8 hours PRN, nausea, vomiting, Starting on Fri08/10/24 at 2042, 1st Line. If inadequate response within 60 minutes, proceed to next-line agent or contact provider if no further options ordered. Patient should allow tablet to dissolve on tongue. Do not remove from blister pack until just before administering. Or ondansetron (Zofran) injection 4 mgJump to med 4 mg, IntraVENous, Every 6 hours PRN, nausea, vomiting, Starting on Fri08/10/24 at 2041, 1st Line. Give IV if patient is unable to take orally. If inadequate response within 60 minutes, proceed to next-line agent or contact provider if no further options ordered. Scheduled Medication Order 08/21/2024 08/22/2024 08/23/2024 metoprolol tartrate (Lopressor) tablet 25 mg 25 mg, Oral, Once, On Fri08/23/24 at 0725, For 1 dose 0725 (Not Given - Pr ovider: Maritza Huff RN - Reason: Patient/family refused) ondansetron ODT (Zofran-ODT) disintegrating tablet 4 mg (COMPLETED) 4 mg, Oral, Once, On Fri08/23/24 at 0630, For 1 dose 0712 (Given - Provid er: Maritza Huff RN) Scheduled Medication Order 08/23/2024 08/24/2024 08/25/2024 ondansetron (Zofran) injection 4 mg (COMPLETED) 4 mg, IntraVENous, Once, On Fri08/25/24 at 0210, For 1 dose 0411 (Given - Provid er: Obdulia Sanchez RN) Scheduled Medication Order 10/04/2024 10/05/2024 10/06/2024 amoxicillin-clavulanate (AUGMENTIN) 875-125 MG per tablet 1 Tablet, Oral, 2 TIMES DAILY, First dose on Fri10/04/24 at 1900, Until Discontinued 1901 (Given - Provider: Stephy Quezada RN) 0940 (Given - Provider: Penelope Chaidez RN)2030 (Given - Provider: Gayla Martinez RN) 0958 (Hold/Not Given - Provider: Penelope Chaidez RN - Reason: Patient refused - Comment: pt spitting up meds)2099 (Due) Apixaban (ELIQUIS) tablet 5 mg, Oral, 2 TIMES DAILY, First dose on Fri10/04/24 at 1900, Until Discontinued 190 (Given - Provider: Stephy Quezada RN) 0940 (Given - Provider: Penelope Chaidez RN)2030 (Given - Provider: Gayla Martinez RN) 0958 (Hold/Not Given - Provider: Penelope Chaidez RN - Reason: Patient refused - Comment: pt spitting up meds. MD Nova notified)2099 (Due) bumetanide (BUMEX) tablet 2 mg, Oral, DAILY, First dose on Fri10/05/24 at 1400, Until Discontinued 141 (Given - Provider: Penelope Chaidez RN) 09 (Hold/Not Given - Provider: Penelope Chaidez RN - Reason: Patient refused - Comment: pt spitting up meds. MD Nova notified) doxycycline (VIBRA-TABS) 100 MG tablet (CANCELED) 100 mg, Oral, 2 TIMES DAILY, 9 doses, First dose on Fri10/01/24 at 0900, Last dose on Fri10/05/24 at 0900 1100 (Hold/Not Given - Provider: Xenia Taylor RN - Reason: Patient refused)2347 (Given - Provider: Jessenia Zhong RN) doxycycline (VIBRA-TABS) 100 MG tablet 100 mg, Oral, 2 TIMES DAILY, 8 doses, First dose (after last modification) on Fri10/05/24 at 0900, Last dose on Fri10/08/24 at 2100 0940 (Given - Provider: Penelope Chaidez RN)2030 (Given - Provider: Gayla Martinez RN) 0958 (Hold/Not Given - Provider: Penelope Chaidez RN - Reason: Patient refused - Comment: pt spitting up meds. MD Nova notified)2100 (Due) folic acid 1 MG tablet 1 mg, Oral, DAILY, First dose on Fri10/01/24 at 0900, Until Discontinued 1100 (Hold/Not Given - Provider: Xenia Taylor RN - Reason: Patient refused) 0900 (Hold/Not Given - Provider: Penelope Chaidez RN - Reason: Patient refused) 0900 (Hold/Not Given - Provider: Penelope Chaidez RN - Reason: Patient refused) hydrALAZINE (APRESOLINE) tablet 100 mg, Oral, THREE TIMES DAILY 0900, 1300, 1700, First dose on Fri10/01/24 at 0900, Until Discontinued 1100 (Hold/Not Given - Provider: Xenia Taylor RN - Reason: Patient refused)1300 (Hold/Not Given - Provider: Xenia Taylor RN - Reason: Patient refused)1543 (Given - Provider: Xenia Taylor RN) 0900 (Hold/Not Given - Provider: Penelope Chaidez RN - Reason: Patient refused)1300 (Hold/Not Given - Provider: Penelope Chaidez RN - Reason: Physician order - Comment: low BP)1700 (Hold/Not Given - Provider: Amanda Esposito RN - Reason: Patient refused) 0900 (Hold/Not Given - Provider: Penelope Chaidez RN - Reason: Patient refused - Comment: states too many pills in the am makes him sick)1300 (Hold/Not Given - Provider: Penelope Chaidez RN - Reason: Patient refused - Comment: pt states he will spit it up)1700 (Due) isosorbide dinitrate (ISORDIL) tablet 20 mg, Oral, THREE TIMES DAILY 0900, 1300, 1700, First dose on Fri10/01/24 at 1700, Until Discontinued 1100 (Hold/Not Given - Provider: Xenia Taylor RN - Reason: Patient refused)1300 (Hold/Not Given - Provider: Xenia Taylor RN - Reason: Patient refused)1543 (Given - Provider: Xenia Taylor RN) 0900 (Hold/Not Given - Provider: Penelope Chaidez RN - Reason: Patient refused)1300 (Given - Provider: Penelope Chaidez RN - Comment: low bp. MD Chacko notified.Okay to give)1700 (Hold/Not Given - Provider: Amanda Esposito RN - Reason: Patient refused) 0900 (Hold/Not Given - Provider: Penelope Chaidez RN - Reason: Patient refused - Comment: states too many pills in the am makes him sick)1300 (Hold/Not Given - Provider: Penelope Chaidez RN - Reason: Patient refused - Comment: p states he will spit it up)1700 (Due) lidocaine (LIDODERM) 4 % patch (CANCELED) 1 Patch, Transdermal, EVERY 24 HOURS, First dose on Fri09/30/24 at 1656, Until Discontinued 0900 (Patch Removal - Provider: Xenia Taylor RN)1656 (Patch Applied - Provider: Xenia Taylor RN)1756 (MAR Hold - Provider: Renato, Adt - Reason: Patient Transfer) 0456 (Patch Removal - Provider: Jessenia Zhong RN)1414 (MAR Unhold - Provider: Eugene Nova MD) lidocaine (LIDODERM) 4 % patch 1 Patch, Transdermal, EVERY 24 HOURS, First dose on Fri10/05/24 at 1500, Until Discontinued 1500 (Patch Applied - Provider: Amanda Esposito RN) 0457 (Patch Removal - Provider: Ricki White RN)1415 (Patch Applied - Provider: Penelope Chaidez RN) PRN Medication Order 10/04/2024 10/05/2024 10/06/2024 acetaminophen (TYLENOL) 650 MG/20.3ML oral solution 1,000 mg, Oral, EVERY 8 HOURS PRN, Starting on Fri10/02/24 at 0800, Until Discontinued, Mild Pain (pain score 1,2,3), Moderate Pain (pain score 4,5,6) 2254 (Given - Provider: Ricki White RN) diclofenac (VOLTAREN) 1 % topical GEL 2 g, Topical, EVERY 6 HOURS PRN, Starting on Fri10/05/24 at 1413, Until Discontinued, R chest wall pain oxyCODONE immediate release tablet (CANCELED) 5 mg, Oral, EVERY 6 HOURS PRN, Starting on Fri10/02/24 at 0030, Until Fri10/05/24 at 1242, Severe Pain (pain score 7,8,9,10) 1901 (Given - Provider: Stephy Quezada RN) trimethobenzamide (TIGAN) 100 MG/ML injection 200 mg, Intramuscular, EVERY 6 HOURS PRN, Starting on Fri10/01/24 at 2354, Until Discontinued, Nausea Scheduled Medication Order 10/24/2024 10/25/2024 10/26/2024 Apixaban (ELIQUIS) tablet 5 mg, Oral, 2 TIMES DAILY, First dose on Fri10/17/24 at 2308, Until Discontinued 0900 (Hold/Not Given - Provider: Ana Berger RN - Reason: Patient refused)2100 (Hold/Not Given - Provider: Soraida Foss LPN - Reason: Patient refused) 0900 (Hold/Not Given - Provider: Ana Berger RN - Reason: Patient refused)1242 (Given - Provider: Ana Berger RN)2100 (Hold/Not Given - Provider: Soraida Foss LPN - Reason: Patient refused) 1200 (Hold/Not Given - Provider: Giselle Pierre RN - Reason: Patient refused)2100 (Due) bumetanide (BUMEX) 0.25 mg/mL injection 1 mg, Intravenous Push, 2 TIMES DAILY DIURETIC, First dose on Fri10/25/24 at 1630, Until Discontinued 1630 (Hold/Not Given - Provider: Ana Berger RN - Reason: Patient refused - Comment: CURRICULUM DIRECTOR-VIKKI Laird notified) 0900 (Hold/Not Given - Provider: Giselle Pierre RN - Reason: Route unavailable)1700 (Due) bumetanide (BUMEX) tablet (CANCELED) 1 mg, Oral, DAILY, First dose on Fri10/22/24 at 1130, Until Discontinued 0900 (Hold/Not Given - Provider: Ana Berger RN - Reason: Patient refused)1116 (Given - Provider: Ana Berger RN) 0900 (Hold/Not Given - Provider: Ana Berger RN - Reason: Patient refused)1242 (Given - Provider: Ana Berger RN) Cerovite Jr chew tab 1 Tablet, Oral, DAILY, First dose on Fri10/25/24 at 1730, Until Discontinued 1730 (Hold/Not Given - Provider: Ana Berger RN - Reason: Patient refused - Comment: THOMAS-VIKKI Laird notified) 0900 (Hold/Not Given - Provider: Giselle Pierre RN - Reason: Patient refused) cholecalciferol (VITAMIN D3) tablet 2,000 Units, Oral, DAILY, First dose on Fri10/25/24 at 1730, Until Discontinued 1730 (Hold/Not Given - Provider: Ana Berger RN - Reason: Patient refused - Comment: THOMAS-VIKKI Laird notified) 0900 (Hold/Not Given - Provider: Giselle Pierre RN - Reason: Patient refused) ciprofloxacin (CIPRO) tablet 750 mg (CANCELED) 750 mg, Oral, 2 TIMES DAILY, First dose on Fri10/20/24 at 1130, Until Discontinued 0900 (Hold/Not Given - Provider: Ana Berger RN - Reason: Patient refused)1116 (Given - Provider: Ana Berger RN)2100 (Hold/Not Given - Provider: Soraida Foss LPN - Reason: Patient refused) docusate sodium (COLACE) capsule 100 mg, Oral, 2 TIMES DAILY, First dose on Fri10/18/24 at 0537, Until Discontinued 0900 (Hold/Not Given - Provider: Ana Berger RN - Reason: Patient refused)2100 (Hold/Not Given - Provider: Soraida Foss LPN - Reason: Patient refused) 0900 (Hold/Not Given - Provider: Ana Berger RN - Reason: Patient refused)2100 (Hold/Not Given - Provider: Soraida Foss LPN - Reason: Patient refused) 0900 (Hold/Not Given - Provider: Giselle Pierre RN - Reason: Patient refused)2100 (Due) isosorbide dinitrate (ISORDIL) tablet 20 mg, Oral, 3 TIMES DAILY, First dose (after last modification) on Fri10/18/24 at 0900, Until Discontinued 0900 (Hold/Not Given - Provider: Ana Berger RN - Reason: Patient refused)1300 (Hold/Not Given - Provider: Ana Berger RN - Reason: Patient refused)1700 (Hold/Not Given - Provider: Ana Berger RN - Reason: Patient refused) 0900 (Hold/Not Given - Provider: Ana Berger RN - Reason: Patient refused)1242 (Given - Provider: Ana Berger RN)1700 (Hold/Not Given - Provider: Ana Berger RN - Reason: Patient refused - Comment: NEERAJ Laird notified) 0900 (Hold/Not Given - Provider: Giselle Pierre RN - Reason: Patient refused)1300 (Hold/Not Given - Provider: Giselle Pierre RN - Reason: Patient refused)1700 (Due) linezolid (ZYVOX) 600 MG tablet (CANCELED) 600 mg, Oral, 2 TIMES DAILY, 14 doses, First dose on Fri10/19/24 at 1000, Last dose on Fri10/25/24 at 2100 0900 (Hold/Not Given - Provider: Ana Berger RN - Reason: Patient refused)1116 (Given - Provider: Ana Berger RN)2100 (Hold/Not Given - Provider: Soraida Foss LPN - Reason: Patient refused) pantoprazole (PROTONIX) tablet 40 mg, Oral, DAILY 30 MIN BEFORE BREAKFAST, First dose on Fri10/18/24 at 0830, Until Discontinued 0830 (Hold/Not Given - Provider: Ana Berger RN - Reason: Patient refused) 0830 (Hold/Not Given - Provider: Ana Berger RN - Reason: Patient refused) 0830 (Hold/Not Given - Provider: Giselle Pierre RN - Reason: Patient refused) senna (SENOKOT) tablet 8.6 mg, Oral, AT BEDTIME, First dose on Fri10/18/24 at 2200, Until Discontinued 2100 (Hold/Not Given - Provider: Soraida Foss LPN - Reason: Patient refused) 2100 (Hold/Not Given - Provider: Soraida Foss LPN - Reason: Patient refused) 2200 (Due) PRN Medication Order 10/24/2024 10/25/2024 10/26/2024 acetaminophen (TYLENOL) 650 MG/20.3ML oral solution 650 mg, Oral, EVERY 4 HOURS PRN, Starting on Fri10/18/24 at 0938, Until Discontinued, Mild Pain (pain score 1,2,3), Moderate Pain (pain score 4,5,6), Severe Pain (pain score 7,8,9,10) 1542 (Given - Provider: Ana Berger, CRISTINE) guaiFENesin (ROBITUSSIN) 100 MG/5ML oral solution 10 mL (200 mg), Oral, EVERY 4 HOURS PRN, Starting on Fri10/18/24 at 0525, Until Discontinued, Cough nitroglycerin (NITROSTAT) 0.4 MG sublingual tablet 0.4 mg, Sublingual, EVERY 5 MIN PRN, Starting on Fri10/18/24 at 0506, Until Discontinued, Chest pain Care Teams (unrecognized sec tion and content) Dairy Laboratory Technician Relationship Specialty Start Date End Date Dia Gaitan RN Registered Nurse Cardiology 03/02/24 Dairy Laboratory Technician Relationship Specialty Start Date End Date Dia Gaitan, RN Registered Nurse Cardiology 03/02/24 Dairy Laboratory Technician Relationship Specialty Start Date End Date Dia Gaitan, RN Registered Nurse Cardiology 03/02/24 Dairy Laboratory Technician Relationship Specialty Start Date End Date Dia Gaitan, RN Registered Nurse Cardiology 03/02/24 Dairy Laboratory Technician Relationship Specialty Start Date End Date Dia Gaitan RN Registered Nurse Cardiology 03/02/24 Dairy Laboratory Technician Relationship Specialty Start Date End Date Dia Gaitan RN Registered Nurse Cardiology 03/02/24 Dairy Laboratory Technician Relationship Specialty Start Date End Date Dia Gaitan RN Registered Nurse Cardiology 03/02/24 Dairy Laboratory Technician Relationship Specialty Start Date End Date Dia Gaitan, RN Registered Nurse Cardiology 03/02/24 Dairy Laboratory Technician Relationship Specialty Start Date End Date Dia Gaitan RN Registered Nurse Cardiology 03/02/24 Dairy Laboratory Technician Relationship Specialty Start Date End Date Dia Gaitan, RN Registered Nurse Cardiology 03/02/24 Dairy Laboratory Technician Relationship Specialty Start Date End Date Dia Gaitan, RN Registered Nurse Cardiology 03/02/24 Dairy Laboratory Technician Relationship Specialty Start Date End Date Dia Gaitan, RN Registered Nurse Cardiology 03/02/24 Dairy Laboratory Technician Relationship Specialty Start Date End Date Dia Gaitan, RN Registered Nurse Cardiology 03/02/24 Dairy Laboratory Technician Relationship Specialty Start Date End Date Dia Gaitan, RN Registered Nurse Cardiology 03/02/24 Dairy Laboratory Technician Relationship Specialty Start Date End Date Dia Gaitan, RN Registered Nurse Cardiology 03/02/24 Dairy Laboratory Technician Relationship Specialty Start Date End Date Dia Gaitan, RN Registered Nurse Cardiology 03/02/24 None, Pcp [address] [place] [address] Urgent Care 06/07/24 Dairy Laboratory Technician Relationship Specialty Start Date End Date Dia Gaitan RN Registered Nurse Cardiology 03/02/24 None, Pcp [address] [place] [address] Urgent Care 06/07/24 Dairy Laboratory Technician Relationship Specialty Start Date End Date Dia Gaitan, RN Registered Nurse Cardiology 03/02/24 None, Pcp [address] [place] [address] Urgent Care 06/07/24 Dairy Laboratory Technician Relationship Specialty Start Date End Date Dia Gaitan, RN Registered Nurse Cardiology 03/02/24 None, Pcp [address] [place] [address] Urgent Care 06/07/24 Dairy Laboratory Technician Relationship Specialty Start Date End Date Dia Gaitan, RN Registered Nurse Cardiology 03/02/24 None, Pcp [address] [place] [address] Urgent Care 06/07/24 Dairy Laboratory Technician Relationship Specialty Start Date End Date Dia Gaitan, RN Registered Nurse Cardiology 03/02/24 None, Pcp [address] [place] [address] Urgent Care 06/07/24 Dairy Laboratory Technician Relationship Specialty Start Date End Date Dia Gaitan RN Registered Nurse Cardiology 03/02/24 None, Pcp [address] [place] [address] Urgent Care 06/07/24 Dairy Laboratory Technician Relationship Specialty Start Date End Date Dia Gaitan RN Registered Nurse Cardiology 03/02/24 None, Pcp [address] [place] [address] Urgent Care 06/07/24 Dairy Laboratory Technician Relationship Specialty Start Date End Date Dia Gaitan, RN Registered Nurse Cardiology 03/02/24 None, Pcp [address] [place] [address] Urgent Care 06/07/24 Dairy Laboratory Technician Relationship Specialty Start Date End Date Dia Gaitan, RN Registered Nurse Cardiology 03/02/24 None, Pcp [address] [place] [address] Urgent Care 06/07/24 Dairy Laboratory Technician Relationship Specialty Start Date End Date Dia Gaitan, RN Registered Nurse Cardiology 03/02/24 None, Pcp [address] [place] [address] Urgent Care 06/07/24 Dairy Laboratory Technician Relationship Specialty Start Date End Date Dia Gaitan, RN Registered Nurse Cardiology 03/02/24 None, Pcp [address] [place] [address] Urgent Care 06/07/24 Dairy Laboratory Technician Relationship Specialty Start Date End Date Dia Gaitan, RN Registered Nurse Cardiology 03/02/24 None, Pcp [address] [place] [address] Urgent Care 06/07/24 Dairy Laboratory Technician Relationship Specialty Start Date End Date Dia Gaitan RN Registered Nurse Cardiology 03/02/24 None, Pcp [address] [place] [address] Urgent Care 06/07/24 Dairy Laboratory Technician Relationship Specialty Start Date End Date Dia Gaitan, RN Registered Nurse Cardiology 03/02/24 None, Pcp [address] [place] [address] Urgent Care 06/07/24 Earline Addison, RN Registered Nurse Hardening Machine Operator Manager 07/26/24 Dairy Laboratory Technician Relationship Specialty Start Date End Date Dia Gaitan, RN Registered Nurse Cardiology 03/02/24 None, Pcp [address] [place] [address] Urgent Care 06/07/24 Earline Addison, RN Registered Nurse Hardening Machine Operator Manager 07/26/24 Dairy Laboratory Technician Relationship Specialty Start Date End Date Dia Gaitan RN Registered Nurse Cardiology 03/02/24 None, Pcp [address] [place] [address] Urgent Care 06/07/24 Earline Addison RN Registered Nurse Hardening Machine Operator Manager 07/26/24 Dairy Laboratory Technician Relationship Specialty Start Date End Date Dia Gaitan, RN Registered Nurse Cardiology 03/02/24 None, Pcp [address] [place] [address] Urgent Care 06/07/24 Earline Addison RN Registered Nurse Hardening Machine Operator Manager 07/26/24 Dairy Laboratory Technician Relationship Specialty Start Date End Date Dia Gaitan, RN Registered Nurse Cardiology 03/02/24 None, Pcp [address] [place] [address] Urgent Care 06/07/24 Earline Addison, RN Registered Nurse Hardening Machine Operator Manager 07/26/24 Dairy Laboratory Technician Relationship Specialty Start Date End Date Dia Gaitan RN Registered Nurse Cardiology 03/02/24 None, Pcp [address] [place] [address] Urgent Care 06/07/24 Earline Addison, RN Registered Nurse Hardening Machine Operator Manager 07/26/24 Dairy Laboratory Technician Relationship Specialty Start Date End Date Dia Gaitan, RN Registered Nurse Cardiology 03/02/24 None, Pcp [address] [place] [address] Urgent Care 06/07/24 Earline Addison RN Registered Nurse Hardening Machine Operator Manager 07/26/24 Dairy Laboratory Technician Relationship Specialty Start Date End Date Dia Gaitan RN Registered Nurse Cardiology 03/02/24 None, Pcp [address] [place] [address] Urgent Care 06/07/24 Dairy Laboratory Technician Relationship Specialty Start Date End Date Dia Gaitan, RN Registered Nurse Cardiology 03/02/24 None, Pcp [address] [place] [address] Urgent Care 06/07/24 Earline Addison, RN Registered Nurse Hardening Machine Operator Manager 07/26/24 Dairy Laboratory Technician Relationship Specialty Start Date End Date Dia Gaitan RN Registered Nurse Cardiology 03/02/24 None, Pcp [address] [place] [address] Urgent Care 06/07/24 Earline Addison, RN Registered Nurse Hardening Machine Operator Manager 07/26/24 Dairy Laboratory Technician Relationship Specialty Start Date End Date Dia Gaitan, RN Registered Nurse Cardiology 03/02/24 None, Pcp [address] [place] [address] Urgent Care 06/07/24 Earline Addison RN Registered Nurse Hardening Machine Operator Manager 07/26/24 Dairy Laboratory Technician Relationship Specialty Start Date End Date Dia Gaitan, RN Registered Nurse Cardiology 03/02/24 None, Pcp [address] [place] [address] Urgent Care 06/07/24 Earline Addison, RN Registered Nurse Hardening Machine Operator Manager 07/26/24 Dairy Laboratory Technician Relationship Specialty Start Date End Date Dia Gaitan, RN Registered Nurse Cardiology 03/02/24 None, Pcp [address] [place] [address] Urgent Care 06/07/24 Earline Addison, RN Registered Nurse Hardening Machine Operator Manager 07/26/24 Dairy Laboratory Technician Relationship Specialty Start Date End Date Dia Gaitan RN Registered Nurse Cardiology 03/02/24 None, Pcp [address] [place] [address] Urgent Care 06/07/24 Dairy Laboratory Technician Relationship Specialty Start Date End Date Dia Gaitan, RN Registered Nurse Cardiology 03/02/24 None, Pcp [address] [place] [address] Urgent Care 06/07/24 Earline Addison RN Registered Nurse Hardening Machine Operator Manager 07/26/24 08/24/24 Dairy Laboratory Technician Relationship Specialty Start Date End Date Dia Gaitan, RN Registered Nurse Cardiology 03/02/24 None, Pcp [address] [place] [address] Urgent Care 06/07/24 Dairy Laboratory Technician Relationship Specialty Start Date End Date Yuval Gayle MD [address] [place] [address] [place] [address] PCP - General Family Medicine 08/27/24 Dairy Laboratory Technician Relationship Specialty Start Date End Date Yuval Gayle MD [address] [place] [address] [place] [address] PCP - General Family Medicine 08/27/24 Dairy Laboratory Technician Relationship Specialty Start Date End Date Yuval Gayle MD [address] [place] [address] [place] [address] PCP - General Family Medicine 08/27/24 Dairy Laboratory Technician Relationship Specialty Start Date End Date Yuval Gayle MD [address] [place] [address] [place] [address] PCP - General Family Medicine 08/27/24 Dairy Laboratory Technician Relationship Specialty Start Date End Date Yuval Gayle MD [address] [place] [address] [place] [address] PCP - General Family Medicine 08/27/24 Dairy Laboratory Technician Relationship Specialty Start Date End Date Yuval Gayle MD [address] [place] [address] [place] [address] PCP - General Family Medicine 08/27/24 Dairy Laboratory Technician Relationship Specialty Start Date End Date Yuval Gayle MD [address] [place] [address] [address] [place] [id number] PCP - General Family Medicine 08/27/24 Dairy Laboratory Technician Relationship Specialty Start Date End Date Yuval Gayle MD [address] [place] [address] [address] [place] [id number] PCP - General Family Medicine 08/27/24 Dairy Laboratory Technician Relationship Specialty Start Date End Date Yuval Gayle MD [address] [place] [address] [address] [place] [id number] PCP - General Family Medicine 08/27/24 Dairy Laboratory Technician Relationship Specialty Start Date End Date Yuval Gayle MD [address] [place] [address] [place] [address] PCP - General Family Medicine 08/27/24 Dairy Laboratory Technician Relationship Specialty Start Date End Date Yuval Gayle MD [address] [place] [address] [place] [address] PCP - General Family Medicine 08/27/24 Dairy Laboratory Technician Relationship Specialty Start Date End Date Yuval Gayle MD [address] [facility] [place] [address] PCP - General Family Medicine 08/27/24 Dairy Laboratory Technician Relationship Specialty Start Date End Date Yuval Gayle MD [address] [facility] [place] [address] PCP - General Family Medicine 08/27/24 Dairy Laboratory Technician Relationship Specialty Start Date End Date Yuval Gayle MD [address] [facility] [place] [address] PCP - General Family Medicine 08/27/24 Team Status: Active Member Role/Relationship Status Dates No Primary Care Physician Primary Care Provider Active Team Status: Active Member Role/Relationship Status Dates Dr. Deborah Penaloza DO Emergency Provider Active Start: January 04, 2025 No Primary Care Physician Primary Care Provider Active Start: January 04, 2025 Dr. Anshul Lemus DO Admit Provider Active Star t: January 04, 2025 Dr. Anshul Lemus DO Attending Provider Active Start: January 04, 2025 Team Status: Active Member Role/Relationship Status Dates Dr. Deborah Penaloza DO Emergency Provider Active Start: January 04, 2025 No Primary Care Physician Primary Care Provider Active Start: January 04, 2025 Dr. Anshul Lemus DO Admit Provider Active Star t: January 04, 2025 Dr. Anshul Lemus DO Attending Provider Active Start: January 04, 2025 Dr. Anshul Lemus DO Other Provider Active Star t: January 04, 2025 Team Status: Active Member Role/Relationship Status Dates Dr. Deborah Penaloza DO Emergency Provider Active Start: January 04, 2025 No Primary Care Physician Primary Care Provider Active Start: January 04, 2025 Dr. Anshul Lemus DO Admit Provider Active Star t: January 04, 2025 Dr. Anshul Lemus DO Attending Provider Active Start: January 04, 2025 Dr. Lavon Campo MD Other Provider Active Start : January 04, 2025 Dr. Eugene Bucio Other Provider Active Sta rt: January 04, 2025 Dr. Deja Gregorio MD Other Provider Active Start : January 04, 2025 Dr. Kaitlin Golden MD Other Provider Active St art: January 04, 2025 Kalie Caruso , DOUGHNUT MACHINE OPERATOR HELPER-C Other Provider Active Sta rt: January 04, 2025 Jennifer Santiago NP, DOUGHNUT MACHINE OPERATOR HELPER-C Other Provider Active Start: January 04, 2025 IVIS Mcnair Other Provider Active Start: J dell2024 Team Status: Active Member Role/Relationship Status Dates No Primary Care Physician Primary Care Provider Active Start: January 04, 2025 Dr. Clark Almaraz MD Attending Provider Active S tart: January 04, 2025 Team Status: Active Member Role/Relationship Status Dates Dr. Deborah Penaloza DO Emergency Provider Active Start: January 05, 2025 No Primary Care Physician Primary Care Provider Active Start: January 05, 2025 Dr. Anshul Lemus DO Admit Provider Active Star t: January 05, 2025 Dr. Anshul Lemus DO Attending Provider Active Start: January 05, 2025 Dr. Anshul Lemus DO Other Provider Active Star t: January 05, 2025 Team Status: Active Member Role/Relationship Status Dates Dr. Deborah Penaloza DO Emergency Provider Active Start: January 06, 2025 No Primary Care Physician Primary Care Provider Active Start: January 06, 2025 Dr. Anshul Lemus DO Admit Provider Active Star t: January 06, 2025 Dr. Anshul Lemus DO Attending Provider Active Start: January 06, 2025 Dr. Anshul Lemus DO Other Provider Active Star t: January 06, 2025 Team Status: Active Member Role/Relationship Status Dates Dr. Deborah Penaloza DO Emergency Provider Active Start: January 07, 2025 No Primary Care Physician Primary Care Provider Active Start: January 07, 2025 Dr. Anshul Lemus DO Admit Provider Active Star t: January 07, 2025 Dr. Anshul Lemus DO Attending Provider Active Start: January 07, 2025 Dr. Anshul Lemus DO Other Provider Active Star t: January 07, 2025 Dr. Lavon Campo MD Other Provider Active Start : January 07, 2025 Team Status: Active Member Role/Relationship Status Dates Dr. Deborah Penaloza DO Emergency Provider Active Start: January 08, 2025 No Primary Care Physician Primary Care Provider Active Start: January 08, 2025 Dr. Anshul Lemus DO Admit Provider Active Star t: January 08, 2025 Dr. Anshul Lemus DO Attending Provider Active Start: January 08, 2025 Dr. Anshul Lemus DO Other Provider Active Star t: January 08, 2025 Dr. Lavon Campo MD Other Provider Active Start : January 08, 2025 Team Status: Active Member Role/Relationship Status Dates Dr. Deborah Penaloza DO Emergency Provider Active Start: January 09, 2025 No Primary Care Physician Primary Care Provider Active Start: January 09, 2025 Dr. Anshul Lemus DO Admit Provider Active Star t: January 09, 2025 Dr. Anshul Lemus DO Attending Provider Active Start: January 09, 2025 Dr. Anshul Lemus DO Other Provider Active Star t: January 09, 2025 Dr. Lavon Campo MD Other Provider Active Start : January 09, 2025 Dr. Eugene Bucio DO Other Provider Active Sta rt: January 09, 2025 Dr. Deja Gregorio MD Other Provider Active Start : January 09, 2025 Dr. Kaitlin Golden MD Other Provider Active St art: January 09, 2025 Kalie Caruso NP-C Other Provider Active Sta rt: January 09, 2025 Jennifer Santiago NP, DOUGHNUT MACHINE OPERATOR HELPER-C Other Provider Active Start: January 09, 2025 IVIS Mcnair Other Provider Active Start: Donaldo dell2024 Team Status: Active Member Role/Relationship Status Dates No Primary Care Physician Primary Care Provider Active Start: January 10, 2025 Dr. Lavon Campo MD Attending Provider Active S tart: January 10, 2025 Team Status: Inactive Member Role/Relationship Status Dates Dr. Deborah Pnealoza DO Emergency Provider Active Start: January 04, 2025 End: January 10, 2025 No Primary Care Physician Primary Care Provider Active Start: January 04, 2025 End: January 10, 2025 Dr. Anshul Lemus DO Admit Provider Active Star t: January 04, 2025 End: January 10, 2025 Dr. Anshul Lemus DO Attending Provider Active Start: January 04, 2025 End: January 10, 2025 Dr. Lavon Campo MD Other Provider Active Start : January 04, 2025 End: January 10, 2025 Dr. Eugene Bucio , Other Provider Active Sta rt: January 04, 2025 End: January 10, 2025 Dr. Deja Gregorio MD Other Provider Active Start : January 04, 2025 End: January 10, 2025 Dr. Kaitlin Golden MD Other Provider Active St art: January 04, 2025 End: January 10, 2025 YUAN JonesC Other Provider Active Sta rt: January 04, 2025 End: January 10, 2025 Jennifer Santiago NP, DOUGHNUT MACHINE OPERATOR HELPER-C Other Provider Active Start: January 04, 2025 End: January 10, 2025 IVIS Mcnair Other Provider Active Start: 2024 End: January 10, 2025 Team Status: Active Member Role/Relationship Status Dates Dr. Deborah Penaloza DO Emergency Provider Active Start: January 10, 2025 No Primary Care Physician Primary Care Provider Active Start: January 10, 2025 Dr. Anshul Lemus DO Admit Provider Active Star t: January 10, 2025 Dr. Anshul Lemus DO Attending Provider Active Start: January 10, 2025 Dr. Anshul Lemus DO Other Provider Active Star t: January 10, 2025 Dr. Lavon Campo MD Other Provider Active Start : January 10, 2025 Dr. Eugene Bucio DO Other Provider Active Sta rt: January 10, 2025 Dr. Deja Gregorio MD Other Provider Active Start : January 10, 2025 Dr. Kaitlin Golden MD Other Provider Active St art: January 10, 2025 DONG Jones Other Provider Active Sta rt: January 10, 2025 Jennifer Santiago NP, DOUGHNUT MACHINE OPERATOR HELPER-C Other Provider Active Start: January 10, 2025 IVIS Mcnair Other Provider Active Start: J dell 14th, 2025 Team Status: Active Member Role/Relationship Status Dates No Primary Care Physician Primary Care Provider Active Start: January 10, 2025 Dr. Lavon Campo MD Attending Provider Active S tart: January 10, 2025 (unrecognized sect ion and content) No Status Records FoundNo Status Records FoundNo Status Records FoundNo Status Records FoundNo Status Records FoundNo Status Records Found INFORMATION SOURCE (unrecogn ized section and content) DATE CREATED AUTHOR 08/26/2024 [facility] DATE CREATED AUTHOR AUTHOR'S ORGANIZ ATION 10/11/2024 [facility] DATE CREATED AUTHOR AUTHOR'S ORGANIZ ATION 11/05/2024 [facility] DATE CREATED AUTHOR AUTHOR'S ORGANIZ ATION 01/19/2025 [facility] DATE CREATED AUTHOR AUTHOR'S ORGANIZ ATION 01/22/2025 [facility] DATE CREATED AUTHOR AUTHOR'S ORGANIZ ATION 01/25/2025 [facility] Source Comments (unrecognize d section and content) In the event this informatio n is protected by the Federal Confidentiality of Alcohol and Drug Abuse Patient Records regulations: The Federal rules restrict any use of the information to criminally investigate or prosecute any alcohol or drug abuse patient.[facility] the event this information is protected by the Federal Confidentiality of Alcohol and Drug Abuse Patient Records regulations: The Federal rules restrict any use of the information to criminally investigate or prosecute any alcohol or drug abuse patient.[facility] Goals (unrecognized section and content) Goals may be documented in a n alternate section FOR RECORDS PERTAINING TO PATIENTS WHO ARE OR HAVE BEEN ENROLLED IN A CHEMICAL DEPENDENCY/SUBSTANCEABUSE PROGRAM, SOME INFORMATION MAY BE OMITTED. This clinical summary was aggregated from multiple sources. Caution should be exercised in using it in the provision of clinical care. This summary normalizes information from multiple sources, and as a consequence, information in this document may materially change the coding, format and clinical context of patient data. In addition, data may be omitted in some cases. CLINICAL DECISIONS SHOULD BE BASED ON THE PRIMARY CLINICAL RECORDS. [facility]. provides no warranty or guarantee of the accuracy or completeness of information in this document.
[2025-01-29 08:39] LABS: Hematocrit 42.0 % (40-54); Hemoglobin 13.4 g/dL (13.0-16.5); Immature Granulocytes Count 0.020 X10^3/uL (0.0-0.0); Mean Corp Hgb Conc 31.9 g/dL (32-36); Mean Corpuscular Volume 102.9 fL (80-94); Mean Platelet Vol. 10.2 fl (6.2-12.0); NRBC Flagged by Analyzer 0.7 % (0-5); Platelet Count 368 K/mm3 (150-450); RBC Distribution Width CV 16.3 % (11.6-14.6); RBC Distribution Width SD 61.2 fl (35.1-43.9); Red Blood Count 4.08 M/mm3 (4.6-6.2); White Blood Count 7.5 K/mm3 (4.4-11.0)
[2025-01-29 09:06] LABS: Prothrombin Time (Protime)PT. 18.8 SECONDS (11.7-14.9)
[2025-01-29 09:07] LABS: Partial Thromboplast Time 32.5 Seconds (24.1-36.2)
[2025-01-29 09:45] LABS: AST(SGOT) 20 U/L (<=37); Alanine Aminotransfer ALT/SGPT 10 U/L (<=46); Albumin, Serum 3.5 g/dL (3.5-5.0); Alkaline Phosphatase 462 U/L (40-129); Anion Gap 16 (5-15); BUN 36 mg/dL (4-19); BUN/Creat Ratio 14.7 RATIO (10-20); Bilirubin, Direct 3.02 mg/dL (0.00-0.30); Calcium,Total 9.1 mg/dL (7.6-11.0); Carbon Dioxide 21.1 mmol/L (21.0-32.0); Chloride 104 mmol/L (98-108); Estimated Creatinine Clearance 41.81 ml/min (50-250); Globulin 3.2 g/dL (2.2-4.2); Glucose 130 mg/dL (70-99); Potassium 4.4 mmol/L (3.3-5.1); Pro- Brain NATRIURETIC PEPTIDE 49093 pg/mL (<=450); Troponin T High Sensitivity 53 ng/L (<=22)
--- NOTE | 2025-01-29 10:07 | RAD_ITS ---
PROCEDURE: CHEST PA AND LATERAL 01/29/2025 REASON FOR EXAM: CHEST PAIN TECHNIQUE: CHEST PA AND LATERAL COMPARISON: 01/04/2025 FINDINGS: Hardware: EKG leads overlie the chest Heart: Stable cardiomegaly. Mediastinum: The mediastinal contour is unremarkable. Lungs: Lungs are expanded without a superimposed process, previously noted atelectasis has resolved Bones: Degenerative changes are identified within the thoracic spine. RAD/Chest PA and Lateral IMPRESSION: No acute pulmonary process, stable cardiomegaly Reading Location: [id number]
[2025-01-29 10:36] LABS: Troponin T High Sens 2 HR 55 ng/L (<=22)
--- NOTE | 2025-01-29 11:34 | US_ITS ---
PROCEDURE: ABDOMEN COMPLETE N/A REASON FOR EXAM: ABD PAIN, ELEVATED BILI TECHNIQUE: ABDOMEN COMPLETE COMPARISON: Same day CT abdomen pelvis, prior limited abdominal ultrasound 01/04/2025. FINDINGS: Liver: Normal in size, with diffuse echogenicity suggesting fatty infiltration. The bile ducts are within normal limits. The main portal vein is patent with normal directional flow at midline. Gallbladder: No stones, sludge, wall thickening or tenderness. Common bile duct: Normal measuring 0.4 cm. Pancreas: Visualized portions are sonographically unremarkable. Kidneys: The right kidney measures 8.9 x 5.5 x 5.1 cm. The left kidney measures 8.9 x 4.6 x 6.0 cm. Mild symmetric renal cortical scarring. No hydronephrosis. Spleen: Normal in size and echotexture measuring 9.2 x 3.4 x 2.7 cm. Aorta: Visualized abdominal aorta is of normal size. IVC: Visualized inferior vena cava is unremarkable. Peritoneal Findings: Large volume ascites. US/Abdomen Complete IMPRESSION: Hepatic fibrosis/steatosis. Large volume ascites. Consider diagnostic and the rapeutic paracentesis for further evaluation as clinically indicated. Reading Location: [id number]
--- NOTE | 2025-01-29 13:15 | CM.ED ---
Social Work Date of referral: 01/29/25 Reason for Referral: No Primary Care Physician (PCP) on file Referred by: Social Work Identification Patient provided consent to social work visit. Patient stated he does have a PCP however wasn't able to remember name. Patient denied needing any resources at this time. Kaitlin Fontanez, QUAL FIELD MANAGER, YARD COUPLER
[2025-01-29 13:42] LABS: Troponin T High Sens 4 HR 49 ng/L (<=22)
[2025-01-29] MEDS: Ceftriaxone 2 GM in 0.9% Normal Saline (50mL MB+) 50 ML IV (16:16)
[2025-01-29] MEDS: Azithromycin 500 MG in 0.9% Normal Saline (250mL Bag) 250 ML 250 MG IV (17:03)
[2025-01-29] MEDS: fentaNYL 100 MCG/2 ML Ampul 50 MCG IV (18:38)
--- NOTE | 2025-01-29 20:10 | ED.RN ---
this RN called report, report given to marisela Gilman [id number]
== END 2025-01-29 21:34 | disposition other institution (70) ==
PROVIDERS: Emergency Provider Emergency Medicine; Visit Provider Emergency Medicine
DX: R06.02 Shortness of breath (principal); I50.20 Unspecified systolic (congestive) heart failure; N18.32 Chronic kidney disease, stage 3b; Z86.718 Personal history of other venous thrombosis and embolism; R18.8 Other ascites; R10.9 Unspecified abdominal pain; Z86.711 Personal history of pulmonary embolism; Z79.01 Long term (current) use of anticoagulants; R17 Unspecified jaundice
CPT/HCPCS: 71046; 74177; 76700; 80048; 80076; 83880; 84484; 85025; 85610; 85730; 93005; 96365; 96367; 96375; 99285; Q9967; A4216; J0696; J2405

== ENCOUNTER 2025-02-13 17:48 | Inpatient (IN) | payer OTHER, SELFPAY ==
[2025-02-13] VITALS (8 sets, daily range): BP systolic 99–113; BP diastolic 80–95; PULSE 55–114; RESP 16–33; TEMP 35.7–36.2; O2SAT 65–98; BMI 24.4; BMI 22.6
--- NOTE | 2025-02-13 18:09 | ED.VIS.DYS ---
HPI History of Present Illness Chief Complaint: Shortness of Breath Informant: patient Onset/Context/Timing Onset: Days (2) Context: gradual Timing: Continuous Quality: Positive for Dyspnea on exertion and Orthopnea Worsened by: Exertion and Lying flat Relieved by: Nothing Associated Symptoms cough, subjective and chills; Negative for rhinorrhea, post nasal drip, ear pain, fever, sore throat, sweats, clear sputum, white sputum, yellow sputum or green sputum Narrative Narrative: Patient presents with shortness of breath that has been getting worse over the past 2 days. Patient states it is gradually getting worse. Patient states it has been constant. Patient admits to a cough. Patient denies any sputum production. Patient denies any chest pain. Patient also admits to some swelling in his legs. Patient states his stomach feels bloated. Patient states he had a recent paracentesis 2 weeks ago. Patient denies any nausea or vomiting. Patient denies any fevers or chills. PE Risk Factors: Negative for Cancer, OCP + Smoking + > 35, Prior DVT or PE, Recent immobilization, Recent surgery or Recent travel [facility] Medical History (Updated 02/13/25 @ 21:[address] Anshul Lopez, DO) CKD stage 3b, GFR 30-44 ml/min HFrEF (heart failure with reduced ejection fraction) Abdominal ascites Elevated bilirubin Left ventricular ejection fraction less than 20% Kidney disease Non-smoker Irregular heart beat DVT (deep venous thrombosis) CKD (chronic kidney disease) Cardiomyopathy Left bundle branch block Noncompliance Pulmonary embolism CHF (congestive heart failure) Home Medications ?Medication ?Instructions ?Recorded ?Last Taken ?Type apixaban 5 mg tablet (Eliquis) 5 mg PO BID 01/04/25 01/28/25 History bumetanide 1 mg tablet 1 mg PO BID 01/04/25 01/28/25 History isosorbide dinitrate 20 mg tablet 20 mg PO Q8H 01/04/25 01/28/25 History Allergy/AdvReac Type Severity Reaction Status Date / Time No Known Allergies Allergy Verified 02/13/25 17:48 Family History Father Heart disease Brother Heart disease Social History Smoking Status: Never smoker alcohol intake: never substance use type: does not use EXAM Physical Exam Const Vital Signs: 02/13/25 17:48 02/13/25 17:48 02/13/25 17:55 Temperature 97 F L Temperature Source Temporal Pulse Rate 72 55 L Respiratory Rate 16 Respiratory Effort Short of Breath Respiratory Pattern Tachypnea Blood Pressure 99/86 H Blood Pressure Mean 90 Pulse Ox 98 Oxygen Delivery Method Room Air Oxygen Flow Rate (L/min) 02/13/25 18:48 02/13/25 19:00 02/13/25 20:00 Temperature 96.3 F L Temperature Source Temporal Pulse Rate 108 H 114 H Respiratory Rate 29 H 32 H Respiratory Effort Respiratory Pattern Blood Pressure 104/92 H 102/80 Blood Pressure Mean 96 87 Pulse Ox 98 65 94 Oxygen Delivery Method Nasal Cannula Nasal Cannula Nasal Cannula Oxygen Flow Rate (L/min) 2 2 2 MDM MDM MDM Narrative Medical decision making narrative: Differential diagnosis includes pneumonia, bronchitis, ascites, electrolyte abnormality, coagulopathy, congestive heart failure, urinary tract infection, acute kidney injury, cardiac dysrhythmia, and cardiac ischemia. EKG will be obtained to assess for cardiac dysrhythmia and cardiac ischemia. Chest x-ray will be obtained to assess for pneumonia and bronchitis. COVID-19, influenza, and RSV PCR will be obtained to assess for viral illness. CBC will be obtained to assess for leukocytosis and anemia. Comprehensive metabolic profile will be obtained to assess for hepatic function, renal function, and electrolyte abnormality. Lipase will be obtained to assess for pancreatitis. PT with INR and PTT will be obtained to assess for coagulopathy. BNP will be obtained to assess for congestive heart failure. Urinalysis will be obtained to assess for urinary tract infection and hematuria. Lab Data Attestation: I reviewed the patient's lab results. Lab results narrative: CBC was reviewed and was essentially within normal limits. Comprehensive metabolic profile was reviewed. BUN was 38 and creatinine was 2.6. These are consistent with previous results. Alk phos was slightly elevated at 570. [place] [address]. However, this is improved from previous result. Lipase was reviewed and was normal at 17. Urinalysis was reviewed. There is no evidence of urinary tract infection. Urine bilirubin was 3 and urine urobilinogen was 4. Labs: Laboratory Results - last 24 hr 02/13/25 02/13/25 18:40 20:18 WBC 6.7 RBC 4.06 L Hgb 13.4 Hct 41.7 MCV 102.7 H MCH 33.0 H MCHC 32.1 RDW Std Deviation 62.7 H RDW Coeff of Juan 16.6 H Plt Count 243 MPV 11.2 Immature Gran % (Auto) 0.100 Neut % (Auto) 58.1 Lymph % (Auto) 31.6 Chambers % (Auto) 8.9 Eos % (Auto) 0.4 Baso % (Auto) 0.9 Absolute Neuts (auto) 3.9 Absolute Lymphs (auto) 2.13 Nucleated RBC % 0 Platelet Estimate ADEQUATE RBC Morphology NORM C+C PT 16.2 H INR 1.3 APTT 21.2 L Sodium 141 Potassium 4.8 Chloride 103 Carbon Dioxide 18.7 L Anion Gap 20 H BUN 38 H Creatinine 2.60 H Estim Creat Clear Calc 39.69 L Est GFR (MDRD) Non-Af 30 L BUN/Creatinine Ratio 14.6 Glucose 107 H Calcium 9.1 Total Bilirubin 3.79 H AST 39 H ALT 24 Alkaline Phosphatase 570 [place] [address] H Total Protein 7.3 Albumin 3.5 Globulin 3.7 Albumin/Globulin Ratio 1.0 Lipase 17 Urine Color Chaya Urine Clarity Clear Urine pH 5.0 Ur Specific Lapel 1.025 Urine Protein 100 H Urine Glucose (UA) Normal Urine Ketones 5 H Urine Occult Blood 10 H Urine Nitrite Negative Urine Bilirubin 3 H Urine Urobilinogen 4 H Ur Leukocyte Esterase 25 H Urine RBC 0-5 SEEN Urine WBC 0-5 SEEN Ur Squamous Epith Cells 0-5 SEEN Urine Bacteria 3+ Hyaline Casts 10-25 SEEN Urine Mucus 0 SEEN Radiography Chest X-Ray - ED: 2 View, Read by ED Physician, Read by Radiologist, No Acute Disease and Cardiomegaly Diagnostic Testing: Clinical Impression(s) from Imaging Studies Chest X-Ray 02/13/25 18:55 IMPRESSION: Prominent cardiomegaly. No airspace disease or pleural effusion. Reading Location: [facility] PA and lateral chest x-ray was obtained. There are 2 views. On my independent interpretation, lung hernandez are clear. There is cardiomegaly. Bony thorax is normal. There is no acute process noted. Radiologist also interpreted the x-ray and agrees. CT scan of the abdomen and pelvis was obtained. There is diffuse ascites. EKG Initial EKG: Attestation: I personally reviewed and interpreted this EKG as follows: Interpretation: Sinus Tachycardia (108 with PACs and fusion beats) and Non-Specific ST Changes Comments: EKG was obtained. On my independent interpretation, it shows a sinus tachycardia with occasional ectopics with a rate of 108. SD interval is normal at 152 ms. QRS interval was prolonged at 150 ms. QTc interval was slightly prolonged at 536 ms. There is right axis deviation at 156. There are nonspecific ST-T wave changes noted. Prior EKG tracings: available for review Prior: Unchanged (02/10/2025) Management Discussion w/another healthcare provider: Hospitalist Treatment and Re-Evaluation :: Patient was given a dose of Lasix here. Patient was advised of his findings. Case was discussed with the hospitalist. He will admit the patient to PCU. Patient and spouse understood and were agreeable with the plan. All questions were answered. Discharge Plan Dx/Rx/DC Orders Clinical Impression: Abdominal ascites, CKD stage 3b, GFR 30-44 ml/min, Hypoxia Disposition Disposition: Acute Care Hospital [facility]
--- OUTSIDE RECORDS SUMMARY | 2025-02-13 18:27 | XMS RPT_ITS | CCD ---
Author Organization [facility] Care Team Providers Care Phlebotomy Coordinator Name Role Phone Unavailable Primary Care Provider UnavailDia Rdz RN Unavailable Unavailable None, Pcp Unavailable Earline Addison RN Unavailable Unavailjoe Gaitan RN, Dia Velazquez Unavailable Unavailable None, Pcp Unavailable Cyn EVANS, Earline Unavailable Unavailjoe Addison RN, Earline Unavailable UnavailJAMAL Strickland Referring Unavailable SHANE STERN Referring Unavailable CITLALY, MARY ELLEN Attending Unavailable JAMAL BOSE Consulting Unavailable SHERRI JETER Admitting Unavailable MUKKAMALLA MAHAVEER Admitting Unavailable MUKKDICKACLARISSAAVEER Attending Unavailable ANGEL LUIS LASSITER Consulting Unavailable MCCULLOUGH, MANSUMEET Consulting Unavailable LE, JUAN CARLOS R Referring Unavailable MCCULLOUGH, MANSUMEET Consulting Unavailable SERGEI MCGUIRE Attending Unavailable SERG CELAYA Admitting Unavailable GUADALUPE CELAYA Attending Unavailable HELDER POZO Admitting Unavailable LEWIS ALEXANDER Attending Unavailable ALONZO AGUILAR Attending Unavailable ALONZO AGUILAR Admitting Unavailable OFELIA VILLALOBOS Attending Unavailable OROFELIA LUQUE Admitting Unavailable MORGAN ULLOA Attending Unavailable MAGENAIN, SHANE Referring Unavailable VIC LOAIZA Referring Unavailable MCCULLOUGH, MANSUMEET Consulting Unavailable CARLOTAT, MARY ELLEN Attending Unavailable CARLOTAT, MARY ELLEN [...] Provider UnavailYuval Kathleen MD Primary Care Provider SHARI HIGGINS Primary Care Unavailable SABINE LANGFORD MD Admitting Unavailable JOVANNY BOSTON, JENNIFER Consulting Unavailabl e Unavailable Primary Care Provider Unavailjoe Penaloza DO, Dr. Cabrera Emergency Provider Care Physician, No Primary Primary Care Provider Unavailable Dr. Anshul Lemus DO Admit Provider Dr. Anshul Lemus DO Attending Provider Dr. Anshul Lemus DO Other Provider Alber BOSTON, Dr. Doll Other Provider Unavailable Dr. Eugene Bucio DO Other Provider [phone] Dr. Deja Gregorio MD Other Provider Chico BOSTON, Dr. Madrigal Other Provider [phone] Shady BASE WAD OPERATOR ADJUSTER-C, Kalie Other Provider Unavailabl conchita Santiago BASE WAD OPERATOR ADJUSTER-C, Jennifer Other Provider Janay Centeno Other Provider Rufina BOSTON, Dr. Rodas Attending Provider Alber BOSTON, Dr. Doll Attending Provider Unavailab JIM Zafar Admitting Unavailable PROVIDER, UNKNOWN Attending Unavailable YUVAL GAYLE Primary Care Unavailable PROVIDER, UNKNOWN Admitting Unavailable YUVAL GAYLE Attending Unavailable YUVAL GAYLE Primary Care Unavailable PROVIDER, UNKNOWN Attending Unavailable PROVIDER, UNKNOWN Admitting Unavailable YUVAL GAYLE Primary Care Unavailable MIGUEL ANGEL BLACKMAN Attending Unavailable CONSULT, IP CARDIOLOGY Consulting Unavailab YUVAL Israel Primary Care Unavailable LANCE ENNIS Admitting Unavailable REQUEST, IP PHYSICAL THERAPY SERVICE [...] Primary Care Unavailable PROVIDER, UNKNOWN Admitting Unavailable LUIS EDUARDO BERNAL Attending Unavailable ROBIN, YUVAL Primary Care Unavailable [...] Consulting Unavailable ROBIN, YUVAL Primary Care Unavailable Dr. Vargas Rea DO Emergency Provider SUNNY, MAGED Attending Unavailable MAGED CORREA Admitting Unavailable DANGUILAN, NIC HERNANDEZ Admitting Unavaila ble VARGAS REA Referring Unavailable GUS RESENDEZ A Consulting Unavailable JASON CANO Attending Unavailable Álvaro KERR, Dr. Kaye Attending Provider Care Physician, No Primary Referring Provider Un available Dr. Joel Berg MD Attending Provider Care Physician, No Primary Primary Care Unava ilable Jopperi, Anshul Admitting Unavailable Jopperi, Anshul Attending Unavailable Jopperi, Anshul Consulting Unavailable Jabri, Ahmad Consulting Unavailable Fortunato, Eugene R Consulting Unavailable Darline, Deja Consulting Unavailable Golden, Kaitlin Consulting Unavailable Shady, Kalie Consulting Unavailable Jack BASE WAD OPERATOR ADJUSTER, Jennifer Consulting Unavailable Mascdaniella, Janay Consulting Unavailable Vargas Rea Attending Unavailable Care Physician, No Primary Primary Care Unava ilable Jabri, Ahmad Consulting Unavailable Jopperi, Anshul Admitting Unavailable Jopperi, Anshul Attending Unavailable Care Physician, No Primary Primary Care Unava ilable Fortunato, Eugene R Consulting Unavailable Darline, Deja Consulting Unavailable Golden, Kaitlin Consulting Unavailable Shady, Kalie Consulting Unavailable Jack BASE WAD OPERATOR ADJUSTER, Jennifer Consulting Unavailable Masci, Janay Consulting Unavailable Jabri, Ahmad Attending Unavailable Care Physician, No Primary Primary Care Unava ilable Care Physician, No Primary Primary Care Unava ilable Clark Almaraz Attending Unavailable Joel Berg Attending Unavailable Care Physician, No Primary Primary Care Unava ilable Care Physician, No Primary Referring Unava ilable Allergies Allergy Classification Reported Allergen(s) Allergy Type Date of Onset Reaction(s) Facility (20 sources) sacubitril / valsartan; Translations: [SACUBITRIL-VALS TONY] Drug Allergy 5 Nausea And Vomiting, Other: See Comments, Vomiting [facility] (20 sources) torsemide; Translations: [TORSEMIDE] Drug Allergy 5 Nausea And Vomiting, Vomiting [facility] (1 source) hydrALAZINE; Translations: [HYDRALAZINE] Drug Allergy 5 [facility] Other [place] [facility] Medications Current Medications Medication Drug Class(es) Dates Sig (Normalized) Sig (Original) apixaban 5 mg oral tablet (20 sources) Factor Xa Inhibitor Start: 07-03-2024 End: 01-23-2025 take 1 tablet by mouth twice daily Apixaban (Eliquis) 5 mg tablet Active 5 mg PO TWICE A DAY January 04, 2025 12:00am Start: 06-21-2024 End: 08-23-2024 take 2 tablets [...] First dose on 07/03/24 at 2145 Start: 06-21-2024 End: 09-19-2024 take [...] HFrEF (heart failure with reduced ejection fraction) ([facility]) Take 1 tablet (50 mg) by mouth [...] (12.5 mg) by mouth daily. 15 tablet 07/16/2024 3:52 PM EST 07/16/2024 08/04/2024 Discontinued [...] meals, First dose (after last modification) on Fri07/15/24 at 1700 Start: 03-06-2024 End: 03-07-2025 take 6.25 mg by mouth twice daily at mealtime 6.25 mg, Oral, 2 times daily with meals, First dose (after last modification) on Fri07/14/24 at 1700 cefepime (MAXIPIME) 2,000 mg in sterile water for injection 20 mL IV push (2 sources) Start: 10-17-2024 End: 10-17-2024 2,000 mg, Intravenous, STAT, 1 dose, On Fri10/17/24 at 2152 Start: 09-30-2024 End: 09-30-2024 2,000 mg, Intravenous, ONCE, 1 dose, On Fri09/30/24 at 1835 cefTRIAXone 1000 mg injection (1 [...] Daily, First dose on 07/24/24 at 0900 take 1 capsule by [facility] once daily Cholecalciferol 50 MCG (1999 UT) CAPS Take [...] 1 mg/kg 78.5 kg), SubCUTAneous, Once, On Fri06/16/24 at 1615, For 1 dose, Give one time dose at time patient is due to have Eliquis ( holding eliquis for heart cath tomorrow). Give NO dose in AM 06/17. , Indication of Use: Treatment-DVT/PE Start: 06-13-2024 End: 06-14-2024 inject 40 mg by subcutaneous injection every twenty-four hours 40 mg, SubCUTAneous, Every 24 hours scheduled (Daily), First dose on Fri06/13/24 at 1710, Indication of Use: Prophylaxis-DVT/PE, Indications: [...] IntraVENous, 2 times daily, First dose on 07/30/24 at 1415 Start: 07-24-2024 End: 07-29-2024 80 [...] Minutes, 2 times daily, First dose on Fri05/28/24 at 2100 Start: 04-28-2024 End: 04-28-2024 Start: 04-28-2024 End: 04-28-2024 60 mg, IntraVENous, 2 times daily, First dose (after last modification) on Fri04/28/24 at 0900 Start: 04-28-2024 60 mg, IntraVE [...] End: 07-11-2024 4,000 Units, IntraVENous, Once, On [place] 07/11/24 at 2145, For 1 dose, Initial one time bolus Start: 07-11-2024 End: 07-12-2024 5-30 Units/kg/hr 80.5 kg (4. 025-24.15 mL/hr, rounded to 4-24.2 mL/hr), IntraVENous, Continuous, Starting on 07/11/24 at 2145, LOW Dose Heparin Weight [...] IntraVENous, IMG once PRN, contrast, Starting on Fri02/28/24 at 1915, For 1 dose 1 ml [...] mouth once 1 mg, Oral, Once, On Fri02/28/24 at 2050, For 1 dose magnesium hydroxide [...] hour 4 mg, IntraVENous, Onc e, On Fri07/11/24 at 2105, For 1 dose, If oral [...] Push, EVERY 6 HOURS PRN, Starting on [place] 09/30/24 at 2238, Until Fri10/01/24 at 0020, Nausea, [...] End: 04-28-2024 4 mg, IntraVENous, Once, On 04/28/24 at 0255, For 1 dose ondansetron ODT [...] reach optimal image enhancement polyethylene glycol 3350 18425 mg powder for oral solution (16 sources) [...] between any LUCRECIA inhibitor dose and sacubitril-valsartan. sennoOneFolds, fpc 8.6 mg oral tablet (1 source) Start: 10-18-2024 take 8.6 mg by mouth at bedtime 8.6 mg, Oral, AT BEDTIME, First dose on Fri10/18/24 at 2200, Until Discontinued sodium bicarbonate 650 [...] mL/hr, Intravenous, FLUID BOLUS, 1 dose, On Fri09/30/24 at 1946 Start: 06-17-2024 End: 06-17-2024 3 [...] 0320, For 1 dose sodium zirconium cyclosilicate 83253 mg powder for oral suspension (2 sources) [...] 1,500 mg, Intravenous, STAT, 1 dose, On 10/17/24 at 2152 (4 sources) Start: 08-10-2024 End: [...] Date Documented Da te Episodic/Chronic Abdominal pain (10 sources) Abdominal pain; Translations: [Unspecified abdominal pain] [...] Onset: 4 06-08-2024 Chronic Chronic kidney disease (11 sources) Chronic kidney disease; Translations: [Chronic kidney disease, stage 3b (HCC)] Onset: 4 Conduction disorders (18 sources) Non-specific intraventricular conduction delay; Translations: [Nonspecific intraventricular block] Onset: 5 10-02-2024 Chronic Congestive heart failure; nonhypertensive (20 sources) Congestive heart failure; Translations: [Heart failure, unspecified] Onset: 4 Resolved: 5 02-28-2024 Chronic Congestive heart failure; nonhypertensive (8 sources) Congestive heart failure; nonhypertensive; Translations: [Heart failure with reduced ejection fraction (HFrEF)] Essential hypertension (20 sources) Hypertensive disorder; Translations: [Essential (primary) hypertension] Onset: 4 02-28-2024 Chronic Fluid and electrolyte disorders (20 sources) Metabolic acidosis; Translations: [Metabolic acidosis] Onset: 4 Resolved: 5 05-28-2024 Episodic Hypertension with complications and secondary hypertension (4 [...] Onset: 5 01-19-2025 Episodic Other gastrointestinal disorders (6 sources) Ascites; Translations: [Other ascites] 01-04-2025 Episodic Other gastrointestinal disorders (1 source) Other ascites; Translations: [Ascites of liver] Onset: 5 Episodic Other liver diseases (15 sources) Cirrhosis of liver; Translations: [Unspecified cirrhosis of liver] Onset: 5 10-21-2024 Chronic Other liver diseases (2 sources) Enzyme level - finding; Translations: [Transaminitis] 07-03-2024 Episodic Other liver diseases (2 sources) Abnormal levels of other serum enzymes; Translations: [Abnormal levels of other serum enzymes] Onset: 4 Episodic Other liver diseases (12 sources) Increased bilirubin level; Translations: [Unspecified jaundice] 01-04-2025 Episodic Other liver diseases (1 source) Scleral icterus; Translations: [Unspecified jaundice] Onset: 5 01-21-2025 Episodic Other liver diseases (2 sources) Unspecified jaundice; Translations: [Scleral icterus] Onset: 5 Episodic Other lower respiratory disease (2 sources) Hypoxia; Translations: [Hypoxemia] 03-06-2024 Episodic Other lower respiratory disease (2 sources) Cough; Translations: [Acute cough] 04-28-2024 Episodic Other lower respiratory disease (2 sources) Dyspnea on exertion; Translations: [Shortness of breath] 04-28-2024 Episodic Other lower respiratory disease (3 sources) Shortness of breath; Translations: [Shortness of breath] Onset: 4 Episodic Other lower respiratory disease (1 source) Cough; Translations: [Cough, unspecified type] 10-13-2024 Episodic Other nutritional; endocrine; and metabolic disorders (14 sources) Hypomagnesemia; Translations: [Hypomagnesemia] Onset: 5 10-21-2024 Chronic Other nutritional; endocrine; and metabolic disorders (1 source) Other disorders of bilirubin metabolism; Translations: [Bilirubinemia] Onset: 5 Chronic Other screening for suspected conditions (not mental disorders or infectious disease) (17 sources) D-dimer above reference range; Translations: [Other [...] sources) Localized edema; Translations: [Localized edema] Onset: 5 Episodic Residual codes; unclassified (2 sources) Left [...] Translations: [Tachycardia, unspecified] Onset: 06-19-2024 06-19-2024 Episodic Miscellaneous mental health disorders (7 sources) Flat affect; Translations: [Other symptoms and signs involving emotional state] Onset: 08-23-2024 08-23-2024 Episodic Nausea and vomiting (2 sources) Nausea, vomiting and diarrhea; Translations: [Nausea with vomiting, unspecified] Onset: 09-18-2024 09-17-2024 Episodic Nonspecific chest pain (13 sources) Chest pain; Translations: [Chest pain, unspecified] [...] Test Name Value Interpretation Reference Range Facility Cardiology Visit Reporton Cardiology Visit Report [facility] [address] [place], [place] [address] OFFICE VISIT Date of Service: 02/10/25 MR#: [id number] Acct: [id number] Name: CARLO MEDINA Rep #: [id number] : 1980 Provider: Dr. Joel davila MD Age/Sex: 44/M [place] [facility] Status: Signed HPI HPI History of Present Illness Details: Patient is a 44-year-old -[place] male that comes in with his today for evaluation of his heart failure. The patient was originally diagnosed sometime in the summer or fall 2023 with severe LV dysfunction. He actually underwent left heart catheterization by Dr. Akilah YEE at [facility] which showed normal coronary arteries and EF was estimated 15% at that time his wedge pressure was 23 mmHg electric end-diastolic pressure 25 mmHg his Rodney cardiac output was 3 L/min with an index of 1.5. SVR was documented 2200. The patient has been intolerant to multiple medications. He has had advanced AV block with beta- blockers, and he has had nausea and vomiting with hydralazine and has noted ascites requiring paracentesis as well. The patient is not a candidate for spironolactone or LUCRECIA or ARB therapy given his renal dysfunction. The patient reports that his ascites is stabilized he believes he does have bilateral lower extremity edema. He is only on Bumex and oral nitroglycerin. The patient is on Eliquis 5 mg twice daily. His ECG in office today shows sinus tachycardia with left atrial enlargement left axis deviation and LVH. There are some nonspecific T wave changes as well. QRS duration is 94 ms. The patient has been evaluated at [facility] in [place], has been evaluated at [facility] but could not go back there due to insurance issues, and was most recently admitted to [facility] February 01, 2025. He had a paracentesis done there but was not felt to be a candidate for ENGINE DYNAMOMETER TESTER???D treatment as he had not been on guideline directed medical therapy for 3 months and his QRS duration was not wide enough. Unfortunately the patient been unable to tolerate guideline directed medical therapy due to nausea and vomiting. Intake Vital Signs 01/05/25 14:36 01/29/25 07:49 02/10/25 14:41 02/10/25 14:45 Height 6 ft 1 in 6 ft 1 in 6 ft 1 in 6 ft 1 in Weight: 168 lb BMI 22.1 BP 98/70 Blood Pressure Location Lt brachial Position Sitting Respiration 18 Pulse 102 H Pulse Source Monitor Pulse Oximetry (%) 95 Oxygen Delivery Method room air Intake Visit Reasons: S/P [facility] 01/10 CHF Exacerbation Biochemistry Technologist Required: No Accompanied by: Girlfriend Is patient in pain?: No Allergies No Known Allergies Allergy (Verified 02/10/25 14:39) Medications ???Medication ???Instructions ???Recorded ???Confirmed ???Type apixaban 5 mg tablet (Eliquis) 5 mg PO BID 01/04/25 02/10/25 Hist ory bumetanide 1 mg tablet 1 mg PO BID 01/04/25 02/10/25 Hist ory isosorbide dinitrate 20 mg tablet 20 mg PO Q8H 01/04/25 02/10/25 Hi story Ejection fraction %: 15 Have you fallen in the past year?: No [facility] Medical History (Updated 02/10/25 @ 15:[address] Joel Berg MD) CKD stage 3b, GFR 30-44 ml/min HFrEF (heart failure with reduced ejection fraction) Abdominal ascites Elevated bilirubin Left ventricular ejection fraction less than 20% Kidney disease Non-smoker Irregular heart beat DVT (deep venous thrombosis) CKD (chronic kidney disease) Cardiomyopathy Left bundle branch block Noncompliance Pulmonary embolism CHF (congestive heart failure) Family History Father Heart disease Brother Heart disease Social History Smoking Status: Never smoker alcohol intake: never substance use type: does not use ROS Const Const: Positive for fatigue and weakness ENT ENT: Negative for dizziness or balance problems Cardio Chest Pain: No Palpitations: Yes Edema: Bilateral Muscle aches with walking: None Resp Respiratory: Positive for SOB with activity; Negative for SOB at rest or SOB orthopnea SOB lying down GI GI: Positive for vomiting; Negative nausea or heartburn Musc Musc: Negative for muscle weakness or balance problems Neuro Neuro: Positive for weakness; Negative for dizziness, lightheadedness, near syncope or syncope Endo Endo: Positive for fatigue Cardiology Exam Const Appearance: comfortable, no acute distress and frail appearing Nutritional Appearance: thin Head Head: normal to inspection Eyes General: appearance normal, both eyes and all related structures Neck Neck: normal visual inspection JVD: +5 Carotids: Negative bruit Chest Chest inspection: normal inspection of the chest Auscultation: Bilateral: Diminish (more content not included)... [facility] 02-02-2025 [facility] Telephone ([facility]) CARLO MEDINA ([id number]) 1980 M Date Time Provider Department 02/02/25 Nichole VALDEZ [facility] During your visit today, we recorded the following information about you: Nichole Valdez RN 02/02/2025 1:54 PM Signed The patient was discharged from [facility] 02/01/25 with an order to schedule with the [facility]. The Clinic reached out to the patient by phone leaving a message asking them to contact the Clinic. A letter was also sent to the patient with contact information for scheduling. Allergies As of Date: 02/02/2025 Noted Allergy Reaction HYDRALAZINE 01/31/2025 5 - Intolerance Comments: Nausea and vomiting SACUBITRIL-VALSARTAN 08/04/2024 14 - Other: See Comments 11 - Vomiting Date Reviewed: 01/31/2025 Reviewed by: Amber Day, Canvas Baster Jumpbasting - Fully Assessed Reason for Visit: Orders [681] Cmt: [facility] - order contact/VM/Letter Prescriptions as of 02/02/2025 - metoprolol tartrate, short acting, (LOPRESSOR) 25 mg tablet Take 1 tablet by mouth every 12 hours. - bumetanide (BUMEX) 1 mg tablet Take 2 tablets by mouth two times a day. - apixaban (ELIQUIS) 5 mg tab(s) Take 5 mg by mouth two times a day. - isosorbide dinitrate (ISORDIL) 20 mg tablet Take 20 mg by mouth three times a day. Problem List As Of Date 02/02/2025 Noted Resolved Vomiting [R11.10] 09/18/2024 Sinus tachycardia [R00.0] 06/19/2024 Dyspnea on exertion [R06.09] 02/28/2024 Recommendation refused by patient [Z53.20] 08/23/2024 Pulmonary vascular congestion [R09.89] 04/28/2024 Potential for deficient knowledge of congestive*08/05/2024 Pneumonia of right lower lobe due to infectious*09/30/2024 Moderate malnutrition (HCC) [E44.0] 05/29/2024 Leg swelling [M79.89] 06/13/2024 Patient left care setting after treatment was d*01/19/2025 Left against medical advice [Z53.29] 08/04/2024 Lactic acidosis [E87.20] 09/18/2024 Kidney disorder [N28.9] 01/19/2025 Hypomagnesemia [E83.42] 10/21/2024 Hypokalemia [E87.6] 10/21/2024 History of left bundle branch block (LBBB) [Z86*06/19/2024 HFrEF (heart failure with reduced ejection frac*04/28/2024 Heart disease [I51.9] 01/19/2025 H/O noncompliance with medical treatment, prese*06/19/2024 Flat affect [R45.89] 08/23/2024 Essential hypertension [I10] 06/08/2024 Elevated liver enzymes [R74.8] 06/08/2024 Does not have primary care provider [Z75.8] 08/23/2024 CKD (chronic kidney disease) [N18.9] 06/08/2024 Liver cirrhosis (HCC) [K74.60] 10/21/2024 Chest pain [R07.9] 09/18/2024 Care refused by patient [Z53.29] 08/09/2024 At risk for obstructive sleep apnea [Z91.89] 05/31/2024 Acute on chronic HFrEF (heart failure with redu*10/21/2024 Acute kidney injury superimposed on stage 3b ch*07/03/2024 DVT (deep venous thrombosis) (HCC) [I82.409] 07/24/2024 Acute decompensated heart failure (HCC) [I50.9] 01/19/2025 01/20/2025 Personal history of DVT (deep vein thrombosis) *01/20/2025 NICM (nonischemic cardiomyopathy) (HCC) [I42.8] 01/21/2025 Scleral icterus [R17] 01/21/2025 Ascites [R18.8] 01/29/2025 Hyperbilirubinemia [E80.6] 01/30/2025 CKD stage 3b, GFR 30-44 ml/min (HCC) [N18.32] 01/30/2025 Elevated troponin [R79.89] 01/30/2025 Non compliance w medication regimen [Z91.148] 02/01/2025 Letter Text Encounter Status:Closed by Nichole VALDEZ on 02/02/25 [facility] 02-01-2025 [facility] HNO ID: [id number] Author: JASON CANO MD Service: Hospital Medicine Author Type: Physician Type: Discharge Summary Filed: 02/01/2025 13:37 Note Text: DISCHARGE SUMMARY PATIENT NAME: Carlo Medina ADMISSION DATE: 01/29/2025 DISCHARGE DATE: 02/01/2025 Attending Physician: Jason Cano MD Reason for Hospitalization: shortness of breath Principal Problem: HFrEF (heart failure with reduced ejection fraction) (HCC) (POA: Yes) Active Problems: Dyspnea on exertion (POA: Yes) DVT (deep venous thrombosis) (HCC) (POA: Yes) Ascites (POA: Yes) Hyperbilirubinemia (POA: Yes) CKD stage 3b, GFR 30-44 ml/min (HCC) (POA: Yes) Elevated troponin (POA: Yes) Non compliance w medication regimen (POA: Unknown) Resolved Problems: * No resolved hospital problems. * Operations During Hospitalization: None Procedures During Hospitalization: Paracentesis Hospital Course: Patient is a 44-year-old male with a past medical history significant for chronic systolic heart failure with LVEF of 15% on recent echocardiogram done in December, hepatic steatosis, CKD 3, history of DVT on Eliquis presented to the ER with lower extremity edema bloating and shortness of breath. Patient was sent [facility] to [facility] to pursue paracentesis and further workup. Patient was noted to be in CHF exacerbation and treated with IV diuretics with improvement. Seen by cardiology. Patient is a started on hydralazine which she did not tolerate. Also refused to take Coreg. Patient was continued on Isordil, short acting metoprolol. He underwent paracentesis with removal of 4500 cc of fluid with improvement in his symptoms. Patient is seen by hand pattern marker. Patient previously had extensive workup for ascites. This is felt to be from cardiac dysfunction than Reglan hepatic etiology. No clinical signs of portal hypertension noted and imaging showed no evidence of liver cirrhosis. Patient had right upper quadrant ultrasound done that showed ascites, dilated hepatic veins and inferior vena cava likely due to cardiac dysfunction. Patient clinically improved with IV diuresis and paracentesis. Restarted on home Bumex 2 mg p.o. twice daily Given multiple medication allergies and noncompliance with medications consider very high risk for readmission. He can be considered for an ICD evaluation if compliant with his GDMT treatment for 3 months. Labs and Procedures Pending at Discharge: No pending results. Consulting Teams During Hospitalization: Cardiology: Dr.Vinayak Resendez Gastroenterology: Dr.Dalbir Garcia Patient Condition @ Discharge: Stable Discharge Disposition: Home with Self Care FOLLOW UP: with PCP in 1 week I Discharge Medications: Medication List START taking these medications bumetanide 1 mg tablet Commonly known as: BUMEX Take 2 tablets by mouth two times a day. metoprolol tartrate (short acting) 25 mg tablet Commonly known as: LOPRESSOR Take 1 tablet by mouth every 12 hours. CONTINUE taking these medications apixaban 5 mg tab(s) Commonly known as: ELIQUIS isosorbide dinitrate 20 mg tablet Commonly known as: ISORDIL Where to Get Your Medications These medications were sent to [facility] [address] [address] Hours: Friday-Friday, 8am-7pm, Friday 9am-1pm metoprolol tartrate (short acting) 25 mg tablet These medications were sent to e- [id number] [place] [address] - [address] [place] [address] - [id number] [place] [id number] bumetanide 1 mg tablet I have performed the ughj-gh-niyx and relevant services for a total of 45 minutes. Highest Readmission Risk Score: 27 The 30 day readmissions risk score is derived from an internally validated risk model which evaluates patient level characteristics, utilization history, medication orders and lab results up until the day of discharge. Patients with a score of 39 or above are considered highest risk for readmission. Specific patient level drivers will be listed at the bottom of the summary. The 30 day readmissions risk score is derived from an internally validated risk model which evaluates patient level characteristics, utilization history, medication orders and lab results up until the day of discharge. Patients with a score of 40 or above are considered highest risk for readmission. Specific patient level drivers will be listed at the bottom of the summary. SIGNATURE: Jason Cano MD PAGER: DATE: February 01, 2025 TIME: 1:[address] [facility] CONSULT PROGon 02-01-2025 CONSULT PROG HNO ID: [id number] Author: SARAH GEORGE APRN.VIKKI Service: ? Author Type: Nurse Practitioner Type: Consult Progress Note Filed: 02/01/2025 12:15 Note Text: CARDIOLOGY CONSULT PROGRESS NOTE CARDIOLOGY ATTENDING: Dr. Resendez Date and Reason for initial consult: CHF INTERVAL HISTORY: Patient with previous medical history of HFrEF EF 15% on echo from 01/21/2025, history cirrhosis of liver, CKD stage III, LBBB, and history of DVT. He has had multiple admissions for heart failure with reduced ejection fraction to [facility] recently in December [address] Kary Correa. He was supposed to be on guideline directed medical therapy with Isordil, hydralazine, Cozaar and carvedilol. Patient apparently stopped the hydralazine because he did not feel well and refused angiotensin receptor jerome. Also refused placement of an IV after IV access was lost. He was ultimately discharged home. He was seen by EP during that hospital stay, they determined he was not a candidate for ICD at that time, as he has not completed 3 months of GDMT, and also noted to have narrow complex QRS. He was admitted to [facility] with lower extremity edema, abdominal bloating, apparently had been ongoing last 7 to 10 days. He was evaluated by Dr. Resendez, previous echo on 01/21 revealed EF 15% with dilated RV, severe biatrial dilatation, noted to have moderate to severe MR due to apical tethering of the mitral leaflets. And 3-4+ TR. NT pro BNP 37,110. Since admission he was treated with IV Lasix and had some improvement in his symptoms of breathing. He was started on Toprol, continued on Isorbid, hydralazine was stopped as he did not feel well with taking this, also not on Cozaar because of SCHUYLER currently. Recommended IV diuretic for 24 to 48 hours and likely then changed to p.o. Patient did not want to start too many medications at 1 time, Dr. Resendez did recommend restarting hydralazine at some point low-dose to see if he can tolerate as well, given his renal function currently not a good candidate for MRA, or SGLT2i. Patient refusing his hydralazine yesterday, which was dcd also he states cannot take Toprol, as medication cannot be crushed, and was transitioned to low-dose carvedilol. Yesterday he is status post paracentesis for -4600. He received a dose of carvedilol, apparently had nausea and vomiting yesterday afternoon refuses carvedilol this morning. Difficult situation, reviewed with Dr. Resendez, will transition to short acting metoprolol, not ideal but really only option as she will take his meds unless crushed. Abdominal distention better, still some mild lower extremity edema recommended for compression socks PERTINENT ROS: He denies chest pain, palpitations, shortness of breath, MEDICATIONS: Current Facility-Administered Medications Medication Dose Route Frequency acetaminophen 650 mg tab(s) (TYLENOL) 650 mg ORAL q 4 H PRN aluminum-magnesium hydroxide-simethicone 200-200-20 mg/5 mL 30 mL 30 mL ORAL q 6 H PRN ondansetron (PF) 4 mg injection (ZOFRAN) 4 mg INTRAVENOUS q 6 H PRN NaCl 0.9% iv flush bag 20 mL INTRAVENOUS PRN apixaban 5 mg tab(s) (ELIQUIS) 5 mg ORAL BID isosorbide dinitrate 20 mg tab(s) (ISORDIL) 20 mg ORAL TID furosemide 80 mg injection (LASIX) 80 mg INTRAVENOUS q 12 H 6a/6p carvedilol 3.125 mg tab(s) (COREG) 3.125 mg ORAL BID w MEALS PHYSICAL EXAM: Vital Signs 01/31/25 2344 02/01/25 0309 02/01/25 0523 02/01/25 0738 BP: 114/85 98/70 103/75 Pulse: 85 86 Resp: 18 18 Temp: 36.2 ?C (97.2 ?F) 36.2 ?C (97.2 ?F) 36.3 ?C (97.3 ?F) TempSrc: Temporal Oral SpO2: 98% 99% Weight: Height: Temp (24hrs), Av.3 ?C (97.4 ?F), Min:36.2 ?C (97.2 ?F), Max:36.4 ?C (97.6 ?F) Intake/Output: Intake/Output Summary (Last 24 hours) at 02/01/2025 0820 Last data filed at 01/31/2025 2013 Gross per 24 hour Intake 1080 ml Output 4600 ml Net -3520 ml Oxygen therapy: RA Admit Weight: 176 lbs Gen: AANDO x 3, NAD Neck: no jugular venous distention Cardiac: S1, S2+RRR Resp: clear to auscultation bilaterally Abd: Soft, non-tender. Bowel sounds normal. Ext: 1+ edema, moves all extremities with no apparent weakness Tele: normal sinus rhythm with PVC's Labs: No results found for this basename: CK:3,MB:3,MBP:3,CKMBP :3,TROPT:3 Recent Labs 01/30/25 0005 WBC 7.37 HB 13.4 HCT 42.4 PLT 383 INR 1.4* APTT 31.1 Recent Labs 01/30/25 0005 NA 144 K 4.0 CHLOR 104 CO2 23 BUN 31* CREAT 2.24* GLUC 101* ALKPHOS 436* ALT 10 AST 15 No results found for this basename: chol,hdl,ldl DATA: EKG 01/30/2025:SINUS RHYTHM WITH PREMATURE ATRIAL COMPLEXES WITH ABERRANT CONDUCTION POSSIBLE LEFT ATRIAL ENLARGEMENT NON-SPECIFIC INTRA-VENTRICULAR CONDUCTION BLOCK POSSIBLE LATERAL INFARCT , AGE UNDETERMINED ABNORMAL ECG Echocardiogram 01/21/2025:The left ventricle is severely dilated. Left ventricular systolic f (more content not included)... Normal [facility] HAV IgM Ser Qlon 02-01-2025 HAV IgM Ql (S) Non-Reactive Normal Nonreactive [facility] Comment on above: Order Comment: Speci men Type: BLOOD SPECIMEN Ordering Facility: [facility] Address: [address] [place] [address] Result Comment: No e vidence of recent infection with Hepatitis A virus. Performed By: #### 2 4325-3 #### [facility] CLIA [id number] [address] [place] [address] HBV core IgM Ser Qlon 2024 HBV core IgM Ql (S) Non-Reactive Normal Nonreactive [facility] Comment on above: Order Comment: Speci men Type: BLOOD SPECIMEN Ordering Facility: [facility] Address: [address] [place] [address] Result Comment: No e vidence of recent infection with Hepatitis B virus. Should recent infection be suspected, repeat testing may be considered 3-4 weeks after this draw. Performed By: #### 2 4325-3 #### [facility] CLIA [id number] [address] [place] HBV surface Ag Ser Qlon 08- HBV surface Ag Ql (S) Non-Reactive Normal Nonreactive [facility] Comment on above: Order Comment: Speci men Type: BLOOD SPECIMEN Ordering Facility: [facility] Address: [address] [place] [address] Performed By: #### 2 4325-3 #### [facility] CLIA [id number] [address] [place] HCV RNA DEENA+probe Qnon 02-01 HCV RNA DEENA+probe Ql Not detected Normal Not detected [facility] Comment on above: Order Comment: Speci men Type: BLOOD SPECIMENOrdering Facility: [facility] Address: [address] [place] [address] Performed By: #### 1 1011-4 ####[facility] [id number] [address] [place] Hepatic function 2000 panelo n 02-01-2025 Albumin [Mass/Vol] 3.1 g/dL Low 3.9-4.9 [facility] Comment on above: Order Comment: Speci men Type: BLOOD SPECIMEN Ordering Facility: [facility] Address: [address] [place] [address] Performed By: #### 2 4325-3 #### [facility] CLIA [id number] [address] [place] ALP [Catalytic activity/Vol] 483 U/L High 38-113 [facility] Comment on above: Order Comment: Speci men Type: BLOOD SPECIMEN Ordering Facility: [facility] Address: [address] [place] [address] Performed By: #### 2 4325-3 #### [facility] CLIA [id number] [address] [place] ALT With P-5'-P [Catalytic activity/Vol] 12 U/L Normal 10-54 [facility] Comment on above: Order Comment: Speci men Type: BLOOD SPECIMEN Ordering Facility: [facility] Address: [address] [place] [address] Performed By: #### 2 4325-3 #### [facility] CLIA [id number] [address] OF [facility] AST With P-5'-P [Catalytic activity/Vol] 22 U/L Normal 14-40 [facility] Comment on above: Order Comment: Speci men Type: BLOOD SPECIMEN Ordering Facility: [facility] Address: [address] [place] [address] Performed By: #### 2 4325-3 #### [facility] CLIA [id number] [address] OF [facility] Bilirubin [Mass/Vol] 2.6 mg/dL High 0.2-1.3 [facility] Comment on above: Order Comment: Speci men Type: BLOOD SPECIMEN Ordering Facility: [facility] Address: [address] [place] [address] Performed By: #### 2 4325-3 #### [facility] CLIA [id number] [address] Bilirubin.conjugated [Mass/Vol] 1.8 mg/dL High <0.3 [facility] Comment on above: Order Comment: Speci men Type: BLOOD SPECIMEN Ordering Facility: [facility] Address: [address] [place] [address] Performed By: #### 2 4325-3 #### [facility] CLIA [id number] [address] OF [facility] Protein [Mass/Vol] 5.8 g/dL Low 6.3-8.0 [facility] Comment on above: Order Comment: Speci men Type: BLOOD SPECIMEN Ordering Facility: [facility] Address: [address] [place] [address] Performed By: #### 2 4325-3 #### [facility] CLIA [id number] [address] NURSING PROGon 02-01-2025 NURSING PROG HNO ID: [id number] Author: TAHMINA CACERES RN Service: Nursing Author Type: Registered Nurse Type: Nursing Progress Note Filed: 02/01/2025 00:21 Note Text: Other: 2250- Patient has a sustained heart rate of 140's. Notified and spoke to no new orders made. Patient has been refusing his medications (beta blockers). Normal [facility] XOCHITL BY IFA SCREENon 02-01-20 25 Nuclear Ab Ql (S) Negative Normal Negative [facility] Comment on above: Order Comment: Sunni reynoso Type: BLOOD SPECIMENOrdering Facility: [facility] Address: [address] [place] [address] Result Comment: Anti -nuclear antibody test is used as an aid in diagnosis of systemic autoimmune diseases. Where positive and clinically warranted, follow-up using disease-specific testing is recommended. Low positive titers are not uncommon with advanced age, certain chronic infections, and malignancies among others. Test methodology: Indirect fluorescence immunoassay (IFA) using HEp-2 cells. Performed By: #### A NAIFS ####[facility] [id number] [address] [place] Albumin Fld-mCncon 5 Albumin (Body fld) [Mass/Vol] 1.8 g/dL Normal See Comment [facility] Comment on above: Order Comment: Sunni reynoso Type: FLUID SPECIMENOrdering Facility: [facility] Address: [address] [place] [address] Result Comment: Body Fluid Albumin may be used in classifying ascitic fluid into high-gradient or low-gradient fluids as determined by the serum-ascites albumin gradient, which is calculated as (serum albumin) - (ascites albumin). The serum and fluid specimens should be drawn with a minimal intervening time interval to appropriately analyze the gradient. Gradients greater than or equal to 1.1 g/dL are considered high, which reflects a high hydrostatic pressure, commonly caused by: cirrhosis or other processes generating portal hypertension. In samples where gradients are less than 1.1 g/dL, ascites generated from conditions without portal hypertension should be considered. Reference: 1. CLSI. Analysis of Body Fluids in Clinical Chemistry Approved Guideline. CLSI document C49A. IVIS Lucas: Clinical Laboratory Standards [place]: 2007. 2. Diane MONGE. Serum to ascites albumin gradient. UpToDate. 2015. Accessed on October 11, 2015. This test was developed, and its performance characteristics determined by the [facility] Department of Pathology and Laboratory Medicine. It has not been cleared or approved by the FDA. The [facility] Department of Pathology and Laboratory Medicine is regulated under CLIA as qualified to perform high-complexity testing. This test is used for clinical purposes. It should not be regarded as investigational or for research. Performed By: #### 2 881-1 ####[facility] [id number] [address]#### 1747-5 ####[facility] [id number] [address] LABORATORYCLIA [id number] [address] Amylase Fld-cCncon 5 Amylase (Body fld) [Catalytic activity/Vol] 19 U/L Normal See Comment [facility] Comment on above: Order Comment: Speci men Type: FLUID SPECIMENOrdering Facility: [facility] Address: [address] [place] [address] Result Comment: PLEU RAL FLUIDS: Amylase measurement in pleural fluid is considered a useful test for detecting amylase-rich pleural effusions, which may be caused by exudative conditions associated with pancreatitis, esophageal rupture, malignancy, pneumonia, and liver cirrhosis. A ratio of pleural fluid amylase to a concurrent serum amylase >1 is defined as an amylase-rich pleural effusion. PERITONEAL FLUIDS AND DRAINAGE FLUIDS: Pancreatic damage causes extravasation of amylase from the exocrine cells into the peritoneal space. In cases of pancreatitis, fluid amylase should be at least several-fold times higher in fluid of pancreatic origin compared to concurrent serum amylase values. PANCREATIC CYST FLUID: Pancreatic cyst fluid amylase may aid in characterizing tumors and should be interpreted along with other clinical and laboratory information. References: 1. Leia Song DR. Body fluid analysis: clinical utility and applicability of published studies to guide interpretation of todays laboratory testing in serous fluids. Crit Rev Clin Lab Sci, 2013;50(4-5):107-124. 2. CLSI. Analysis of Body Fluids in Clinical Chemistry; Approved Guideline. CLSI document C49-A. IVIS Lucas: Clinical Laboratory Standards [place]; 2007. 3. Arianne CL, Malissa RC, Marcia DJ. Use of cyst fluid CEA, CA19-9, and amylase for evaluation of pancreatic lesions. Clinical Biochemistry. 2009;42:8633-8486. This test was developed, and its performance characteristics determined by the [facility] Department of Pathology and Laboratory Medicine. It has not been cleared or approved by the FDA. The [facility] Department of Pathology and Laboratory Medicine is regulated under CLIA as qualified to perform high-complexity testing. This test is used for clinical purposes. It should not be regarded as investigational or for research. Performed By: #### 1 795-4 ####[facility] [id number] [address] Fluid Nom (Body fld) Abdomen Normal [facility] Comment on above: Order Comment: Speci men Type: FLUID SPECIMENOrdering Facility: [facility] Address: [address] [place] [address] Performed By: #### 1 795-4 ####[facility] [id number] [address] Performed By: #### 2 881-1 ####[facility] [id number] [address] [place] [facility]#### 1747-5 ####[facility] [id number] [address] [id number] [address] BODY FLUID CELL COUNTon 08-0 Clarity (Unsp spec) Not Indicated Normal Clear [facility] Comment on above: Order Comment: Speci men Type: FLUID SPECIMENOrdering Facility: [facility] Address: [address] [place] [address] Performed By: #### C CBF, [id number] ####[facility] [id number] [address] Color (Body fld) Not Indicated Normal Yellow [facility] Comment on above: Order Comment: Speci men Type: FLUID SPECIMENOrdering Facility: [facility] Address: [address] [place] [address] Performed By: #### C CBF, [id number] ####[facility] [id number] [address] RBC Manual cnt (Body fld) [#/Vol] <2000 Normal <2000 [facility] Comment on above: Order Comment: Speci men Type: FLUID SPECIMENOrdering Facility: [facility] Address: [address] [place] [address] Performed By: #### C CBF, [id number] ####[facility] [id number] [address] Specimen source Nom (Body fld) Ascites Fluid Normal [facility] Comment on above: Order Comment: Speci men Type: FLUID SPECIMENOrdering Facility: [facility] Address: [address] [place] [address] Performed By: #### C CBF, [id number] ####[facility] [id number] [address] WBC Manual cnt (Body fld) [#/Vol] 137 /uL Normal <1000 [facility] Comment on above: Order Comment: Speci men Type: FLUID SPECIMENOrdering Facility: [facility] Address: [address] [place] [address] Performed By: #### C CBF, [id number] ####[facility]ORY[facility] [id number] [address] BRIEF OP NOTon 01-31-2025 BRIEF OP NOT HNO ID: [id number] Author: TRANG JEFFERS APRN.CNP Service: Interventional Radiology Author Type: Nurse Practitioner Type: Brief Op Note Filed: 01/31/2025 08:30 Note Text: BRIEF OP NOTE LOG ID: [id number] Surgery/Procedure Date: 01/31/2025 Incision/Procedure Start Time: 8:15 AM Incision Close/Procedure End Time: 8:28 AM Surgeon(s)/Procedural ist(s) and Plant Sciences Professor(s): Trang Jeffers APRN.CNP Procedure(s): paracentesis Anesthesia: local 5 ml lidocaine Findings: 4600 ml clear yellow fluid; Albumin ordered No, 0 g Estimated Blood Loss: <3 ml Specimens: Yes Complications: none Pre-Op/Pre-Procedure Diagnosis: ascites Post-Op/Post-Procedur e Diagnosis: same SIGNATURE: Trang Jeffers APRN.CNP PATIENT NAME: Carlo Medina DATE: January 31, 2025 TIME: 8:29 AM PAGER/CONTACT #: Normal [facility] Bacteria Fld Culton 02-01-20 25 Bacteria identified Cx Nom (Body fld) CULTURE, BODY FLD: No growth 5 days GRAM STAIN: No organisms seen Few Polymorphonuclear leukocytes Rare Red Blood Cells Gram stain performed on cytospun specimen. Normal [facility] Comment on above: Performed By: #### 6 11-4 #### [facility] CLIA [id number] [address] Bacteria Spec Anaerobe Culto n 01-31-2025 Bacteria identified Anaer cx Nom (Unsp spec) Negative [facility] Comment on above: Performed By: #### 6 35-3 ####[facility] [id number] [address] CONSULT PROGon 01-31-2025 CONSULT PROG HNO ID: [id number] Author: SARAH GEORGE APRN.VIKKI Service: ? Author Type: Nurse Practitioner Type: Consult Progress Note Filed: 01/31/2025 10:53 Note Text: CARDIOLOGY CONSULT PROGRESS NOTE CARDIOLOGY ATTENDING: Dr. Resendez Date and Reason for initial consult: CHF INTERVAL HISTORY: Patient with previous medical history of HFrEF EF 15% on echo from 01/21/2025, history cirrhosis of liver, CKD stage III, LBBB, and history of DVT. He has had multiple admissions for heart failure with reduced ejection fraction to [facility] recently in December [address] Kary Correa. He was supposed to be on guideline directed medical therapy with Isordil, hydralazine, Cozaar and carvedilol. Patient apparently stopped the hydralazine because he did not feel well and refused angiotensin receptor jerome. Also refused placement of an IV after IV access was lost. He was ultimately discharged home. He was seen by EP during that hospital stay, they determined he was not a candidate for ICD at that time, as he has not completed 3 months of GDMT, and also noted to have narrow complex QRS. He was admitted to [facility] with lower extremity edema, abdominal bloating, apparently had been ongoing last 7 to 10 days. He was evaluated by Dr. Resendez, previous echo on 725 revealed EF 15% with dilated RV, severe biatrial dilatation, noted to have moderate to severe MR due to apical tethering of the mitral leaflets. And 3-4+ TR. Since admission he was treated with IV Lasix and had some improvement in his symptoms of breathing. He was started on Toprol, continued on Isorbid, hydralazine was stopped as he did not feel well with taking this, also not on Cozaar because of SCHUYLER currently. Recommended IV diuretic for 24 to 48 hours and likely then changed to p.o. Patient did not want to start too many medications at 1 time, Dr. Resendez did recommend restarting hydralazine at some point low-dose to see if he can tolerate as well, given his renal function currently not a good candidate for MRA, or SGLT2i. Patient refusing his hydralazine this morning, also he states cannot take Toprol, as medication cannot be crushed, will transition to low-dose carvedilol. He has just come back from , he is status post paracentesis for -4600. PERTINENT ROS: He denies chest pain, palpitations, shortness of breath MEDICATIONS: Current Facility-Administered Medications Medication Dose Route Frequency [Transfer Hold] acetaminophen 650 mg tab(s) (TYLENOL) 650 mg ORAL q 4 H PRN [Transfer Hold] aluminum-magnesium hydroxide-simethicone 200-200-20 mg/5 mL 30 mL 30 mL ORAL q 6 H PRN [Transfer Hold] ondansetron (PF) 4 mg injection (ZOFRAN) 4 mg INTRAVENOUS q 6 H PRN [Transfer Hold] NaCl 0.9% iv flush bag 20 mL INTRAVENOUS PRN [Transfer Hold] apixaban 5 mg tab(s) (ELIQUIS) 5 mg ORAL BID [Transfer Hold] isosorbide dinitrate 20 mg tab(s) (ISORDIL) 20 mg ORAL TID [Transfer Hold] furosemide 80 mg injection (LASIX) 80 mg INTRAVENOUS q 12 H 6a/6p [Transfer Hold] metoprolol succinate ER 25 mg tab(s) (TOPROL XL) 25 mg ORAL DAILY [Transfer Hold] hydrALAZINE 25 mg tab(s) (APRESOLINE) 25 mg ORAL q 12 H lidocaine (PF) 10 mg/mL (1 %) injection (XYLOCAINE) SUBCUTANEOUS PRN PHYSICAL EXAM: Vital Signs 01/31/25 0317 01/31/25 0534 01/31/25 0716 01/31/25 0759 BP: 116/86 113/80 119/86 Pulse: 88 (!) 41 73 Resp: 18 19 Temp: 36.5 ?C (97.7 ?F) 36.3 ?C (97.4 ?F) TempSrc: Oral Oral SpO2: 96% 98% Weight: Height: Temp (24hrs), Av.4 ?C (97.5 ?F), Min:36.3 ?C (97.3 ?F), Max:36.5 ?C (97.7 ?F) Intake/Output: Intake/Output Summary (Last 24 hours) at 01/31/2025 0823 Last data filed at 01/30/2025 0832 Gross per 24 hour Intake 120 ml Output -- Net 120 ml Oxygen therapy: RA Admit Weight: 176 lbs Gen: AANDO x 3, NAD Neck: + jugular venous distention Cardiac: S1, S2 + RRR Resp: clear to auscultation bilaterally Abd: Soft, non-tender. Bowel sounds normal. No masses, organomegaly, hernias. Ext: 1+ pitting lower extremity edema, moves all extremities with no apparent weakness Tele: normal sinus rhythm Labs: No results found for this basename: CK:3,MB:3,MBP:3,CKMBP :3,TROPT:3 Recent Labs 01/30/25 0005 WBC 7.37 HB 13.4 HCT 42.4 PLT 383 INR 1.4* APTT 31.1 Recent Labs 01/30/25 0005 NA 144 K 4.0 CHLOR 104 CO2 23 BUN 31* CREAT 2.24* GLUC 101* ALKPHOS 436* ALT 10 AST 15 No results found for this basename: chol,hdl,ldl DATA: EKG 01/30/2025:SINUS RHYTHM WITH PREMATURE ATRIAL COMPLEXES WITH ABERRANT CONDUCTION POSSIBLE LEFT ATRIAL ENLARGEMENT NON-SPECIFIC INTRA-VENTRICULAR CONDUCTION BLOCK POSSIBLE LATERAL INFARCT , AGE UNDETERMINED ABNORMAL ECG Echocardiogram 01/21/2025:The left ventricle is severely dilated. Left ventricular systolic function is severely decreased. EF = 15 ? 5% (2D 4-ch.) - The right ventricle is dilated. Right ventric (more content not included)... Normal [facility] CYTOLOGY NON-GYNon 5 AP DISCLAIMER Normal [facility] Comment on above: Order Comment: Speci men Type: SPECIMEN OBTAINED BY ASPIRATION Ordering Facility: [facility] Address: [address] [place] [address] Result Comment: Lashae lagos Developed Test (LDT) Disclaimer: Performance characteristics of immunohistochemical, immunofluorescent, and chromogenic in-situ hybridization tests have been determined by the performing laboratory within [facility]'s [facility] Pathology and Laboratory Medicine Department ([facility], [facility], [facility], [facility], [facility], [facility], [facility], or [facility]) in a manner consistent with CLIA requirements. One or more of these tests may not have been cleared or approved by the FDA. RT-PLM is regulated under CLIA as qualified to perform high-complexity testing. These tests are used for clinical purposes. These should not be regarded as investigational or for research. Positive and negative controls stain appropriately. Performed By: #### C YTONON #### [facility] CLIA [id number] [address] [place] [address] [place] CASE REPORT Normal [facility] Comment on above: Order Comment: Speci men Type: SPECIMEN OBTAINED BY ASPIRATION Ordering Facility: [facility] Address: [address] [place] [address] Result Comment: [facility] Cytology Report Case: [id number] Authorizing Provider: Nic Rosado, Collected: 01/31/2025 08:17 AM Ordering Location: [facility] Received: 01/31/2025 08:50 AM Pathologist: Nabila Das MD Specimen: Peritoneal Fluid. Performed By: #### C YTONON #### [facility] CLIA [id number] [address] CLINICAL HISTORY cirrhosis Normal [facility] Comment on above: Order Comment: Speci men Type: SPECIMEN OBTAINED BY ASPIRATION Ordering Facility: [facility] Address: [address] [place] [address] Performed By: #### C YTONON #### [facility] CLIA [id number] [address] FINAL DIAGNOSIS Normal [facility] Comment on above: Order Comment: Speci men Type: SPECIMEN OBTAINED BY ASPIRATION Ordering Facility: [facility] Address: [address] [place] [address] Result Comment: A - Peritoneal Fluid Negative for malignant cells. The following cell blocks were associated with this case: A1 Cell Block, Formalin Fixed at 1059 EDT Performed By: #### C YTONON #### [facility] CLIA [id number] [address] FINAL PERFORMING LAB Normal [facility] Comment on above: Order Comment: Speci men Type: SPECIMEN OBTAINED BY ASPIRATION Ordering Facility: [facility] Address: [address] [place] [address] Result Comment: Tech nical component, hand stone polisher screening performed at: [facility], [address] [place] [address] CLIA: [id number] Diagnostic interpretation performed at: [facility], [address] [place] [address] CLIA# [id number] Assistant Professor Of Chemistry: Anshul Bowen MD Performed By: #### C YTONON #### [facility] CLIA [id number] [address] GROSS DESCRIPTION Normal [facility] Comment on above: Order Comment: Speci men Type: SPECIMEN OBTAINED BY ASPIRATION Ordering Facility: [facility] Address: [address] [place] [address] Result Comment: A. P eritoneal Fluid. 1500 cc clear yellow fluid . ThinPrep and Cell Block prepared. Performed By: #### C YTONON #### [facility] CLIA [id number] [address] MANUAL DIFFERENTIAL, BODY FL UIDon 01-31-2025 DIF TTL, BODY FLUID [address] [facility] Comment on above: Order Comment: Speci men Type: FLUID SPECIMENOrdering Facility: [facility] Address: [address] [place] [address] Performed By: #### C CBF, [id number] ####[facility] [id number] [address] [place] LYMPH%, BF 31 % Normal 18-36 [facility] Comment on above: Order Comment: Speci men Type: FLUID SPECIMENOrdering Facility: [facility] Address: [address] [place] [address] Performed By: #### C CBF, [id number] ####[facility] [id number] [address] [place] MACRO%, BF 8 % Low 64-80 [facility] Comment on above: Order Comment: Speci men Type: FLUID SPECIMENOrdering Facility: [facility] Address: [address] [place] [address] Performed By: #### C CBF, [id number] ####[facility] [id number] [address] [place] MESO %, BF 22 % High 0-2 [facility] Comment on above: Order Comment: Speci men Type: FLUID SPECIMENOrdering Facility: [facility] Address: [address] [place] [address] Performed By: #### C CBF, [id number] ####[facility] [id number] [address] [place] MONO% BF 14 % Normal [facility] Comment on above: Order Comment: Speci men Type: FLUID SPECIMENOrdering Facility: [facility] Address: [address] [place] [address] Performed By: #### C CBF, [id number] ####[facility]IA [id number] [place] [address] [place] NEUT%, BF 25 % High 0-1 [facility] Comment on above: Order Comment: Speci men Type: FLUID SPECIMENOrdering Facility: [facility] Address: [address] [place] [address] Performed By: #### C CBF, [id number] ####[facility]IA [id number] [address] Prot Fld-mCncon 01-31-2025 Protein (Body fld) [Mass/Vol] 2.8 g/dL Normal See Comment [facility] Comment on above: Order Comment: Speci men Type: FLUID SPECIMENOrdering Facility: [facility] Address: [address] [place] [address] Result Comment: Sero us fluids: Effusions are the accumulation of clinically detected fluid in any of the serous cavities. Effusions are further into transudates and exudates, which aid in determining the etiology of the effusion. Transudate: Body fluid total protein measurement < 3.0 g/dL. A ratio of serous fluid total protein to a concurrent serum total protein < 0.5 indicates a transudate. Exudate: Body fluid total protein measurement >= 3.0 g/dL. A ratio of serous fluid total protein to a concurrent serum total protein >= 0.5 indicates an exudate. Reference: 1. CLSI. Analysis of Body Fluids in Clinical Chemistry Approved Guideline. CLSI document C49A. IVIS Lucas: Clinical Laboratory Standards [place]: 2007. Performed By: #### 2 881-1 ####[facility] LABCLIA [id number] [address] [address] [place]#### 1747-5 ####[facility] LABCLIA [id number] [address] [address] [facility]ORYCLIA [id number] [place] [address] [place] US ABD RIGHT UPPER QUADRANTo n 01-31-2025 US ABD RIGHT UPPER QUADRANT * * *Final Report* * * DATE OF EXAM: Jan 31 2025 6:53AM [facility] 1032 - US ABD RIGHT UPPER QUADRANT / PROCEDURE REASON: Abn liver function tests (LFTs) * * * * Physician Interpretation * * * * EXAMINATION: RIGHT UPPER QUADRANT ULTRASOUND CLINICAL HISTORY: Abnormalities. Ascites. TECHNIQUE: Sonography of the right upper quadrant was performed. Images were obtained and stored in a permanent archive. MQ: URUQ_2 COMPARISON: CT scan dated 01/29/2025 showing ascites, cardiomegaly, and reflux of IV contrast into the dilated hepatic veins and inferior vena cava. RESULT: Pancreas: Normal sonographic appearance. Portions obscured: tail Liver: Echotexture: Normal, homogeneous. Echogenicity: Normal Surface contour: Smooth Lesions: Dilated hepatic veins and inferior vena cava. Patent main portal vein. Biliary: No intrahepatic biliary duct dilation. CBD: 0.3 at the hilum. Gallbladder: Distended. No gallstones. Right Kidney: No hydronephrosis. Ascites: Large amount of ascites. Spleen: Not enlarged measuring 9.5 cm. IMPRESSION: 1. Large amount of ascites. 2. Dilated hepatic veins and inferior vena cava. Most likely due to cardiac dysfunction. 3. No gallstones. 4. No bile duct dilatation. Paraprofessional Aide: JOSE Transcribe Date/Time: Jan 31 2025 8:18A Dictated by : NGHIA LOBO MD This examination was interpreted and the report reviewed and electronically signed by: NGHIA LOBO MD on Jan 31 2025 8:21AM EST [id number] N Normal [facility] US ABD SPLEEN -NBon 02-01-20 US ABD SPLEEN -NB * * *Final Report* * * DATE OF EXAM: Jan 31 2025 6:53AM [facility] 1232 - US ABD SPLEEN -NB / PROCEDURE REASON: Abn liver function tests (LFTs) * * * * Physician Interpretation * * * * EXAMINATION: RIGHT UPPER QUADRANT ULTRASOUND CLINICAL HISTORY: Abnormalities. Ascites. TECHNIQUE: Sonography of the right upper quadrant was performed. Images were obtained and stored in a permanent archive. MQ: URUQ_2 COMPARISON: CT scan dated 01/29/2025 showing ascites, cardiomegaly, and reflux of IV contrast into the dilated hepatic veins and inferior vena cava. RESULT: Pancreas: Normal sonographic appearance. Portions obscured: tail Liver: Echotexture: Normal, homogeneous. Echogenicity: Normal Surface contour: Smooth Lesions: Dilated hepatic veins and inferior vena cava. Patent main portal vein. Biliary: No intrahepatic biliary duct dilation. CBD: 0.3 at the hilum. Gallbladder: Distended. No gallstones. Right Kidney: No hydronephrosis. Ascites: Large amount of ascites. Spleen: Not enlarged measuring 9.5 cm. IMPRESSION: 1. Large amount of ascites. 2. Dilated hepatic veins and inferior vena cava. Most likely due to cardiac dysfunction. 3. No gallstones. 4. No bile duct dilatation. Paraprofessional Aide: JOSE Transcribe Date/Time: Jan 31 2025 8:18A Dictated by : NGHIA LOBO MD This examination was interpreted and the report reviewed and electronically signed by: NGHIA LOBO MD on Jan 31 2025 8:21AM EST [id number] N Normal [facility] US PARACENTESIS BIon 01-31- 025 US PARACENTESIS BI * * *Final Report* * * DATE OF EXAM: Jan 31 2025 8:29AM [facility] 2038 - US PARACENTESIS BI / PROCEDURE REASON: ascites * * * * Physician Interpretation * * * * EXAM TITLE: ULTRASOUND GUIDED PARACENTESIS DATE: 01/31/25 COMPARISON: None. CLINICAL INDICATION/HISTORY: Ascites Procedure Start Time and Sign In Time: 814 Procedure End Time and Sign Out Time: 827 TECHNIQUE: Informed consent was obtained from the patient. The patient was placed in a supine position and with ultrasound guidance an appropriate skin entry site in the left abdomen was identified, prepped, and anesthetized. With ultrasound guidance a 5-[place] Yueh needle and sheath was passed into the peritoneal space and 4600 cc of straw colored fluid was withdrawn. Specimens were sent for laboratory evaluation. There were no apparent complications. FINDINGS: Ultrasound revealed a generous amount of ascites containing no debris. IMPRESSION: Technically successful ultrasound guided paracentesis yielded 4600 cc of straw colored fluid. Albumin ordered: 0 g. Paraprofessional Aide: JOSE Transcribe Date/Time: Jan 31 2025 8:45A Dictated by : TRANG JEFFERS CNP This examination was interpreted and the report reviewed and electronically signed by: TRANG JEFFERS CNP on Jan 31 2025 8:46AM EST [id number] N Normal [facility] CBC panel Auto (Bld)on 01-30 Erythrocyte distribution width (RBC) [Ratio] 16.2 % High 11.5-15.0 [facility] Comment on above: Order Comment: Speci men Type: BLOOD SPECIMEN [facility] Address: [address] [place] [address] Performed By: #### 2 4325-3 #### [facility] CLIA [id number] [address] Hematocrit (Bld) [Volume fraction] 42.4 % Normal 39.0-51.0 [facility] Comment on above: Order Comment: Speci men Type: BLOOD SPECIMEN Ordering Facility: [facility] Address: [address] [place] [address] Performed By: #### 2 5-3 #### [facility] CLIA [id number] [address] [place] Hemoglobin (Bld) [Mass/Vol] 13.4 g/dL Normal 13.0-17.0 [facility] Comment on above: Order Comment: Speci men Type: BLOOD SPECIMEN Ordering Facility: [facility] Address: [address] [place] [address] Performed By: #### 2 5-3 #### [facility] CLIA [id number] [address] [place] MCH (RBC) [Entitic mass] 33.2 pg Normal 26.0-34.0 [facility] Comment on above: Order Comment: Speci men Type: BLOOD SPECIMEN Ordering Facility: [facility] Address: [address] [place] [address] Performed By: #### 2 5-3 #### [facility] CLIA [id number] [address] MCHC (RBC) [Mass/Vol] 31.6 g/dL Normal 30.5-36.0 [facility] Comment on above: Order Comment: Speci men Type: BLOOD SPECIMEN Ordering Facility: [facility] Address: [address] [place] [address] Performed By: #### 2 4325-3 #### [facility] CLIA [id number] [address] [place] MCV (RBC) [Entitic vol] 105.0 fL High 80.0-100.0 [facility] Comment on above: Order Comment: Speci men Type: BLOOD SPECIMEN Ordering Facility: [facility] Address: [address] [place] [address] Performed By: #### 2 4325-3 #### [facility] CLIA [id number] [address] Nucleated RBC (Bld) [#/Vol] 0.02 10*3/uL High <0.01 [facility] Comment on above: Order Comment: Speci men Type: BLOOD SPECIMEN Ordering Facility: [facility] Address: [address] [place] [address] Performed By: #### 2 4325-3 #### [facility] CLIA [id number] [address] OF [facility] Platelet mean volume (Bld) [Entitic vol] 10.0 fL Normal 9.0-12.7 [facility] Comment on above: Order Comment: Speci men Type: BLOOD SPECIMEN Ordering Facility: [facility] Address: [address] [place] [address] Performed By: #### 2 4325-3 #### [facility] CLIA [id number] [address] Platelets (Bld) [#/Vol] 383 10*3/uL Normal 150-400 [facility] Comment on above: Order Comment: Speci men Type: BLOOD SPECIMEN Ordering Facility: [facility] Address: [address] [place] [address] Performed By: #### 2 4325-3 #### [facility] CLIA [id number] [address] [place] RBC (Bld) [#/Vol] 4.04 10*6/uL Low 4.20-6.00 [facility] Comment on above: Order Comment: Speci men Type: BLOOD SPECIMEN Ordering Facility: [facility] Address: [address] [place] [address] Performed By: #### 2 4325-3 #### [facility] CLIA [id number] [address] OF [facility] WBC (Bld) [#/Vol] 7.37 10*3/uL Normal 3.70-11.00 [facility] Comment on above: Order Comment: Speci men Type: BLOOD SPECIMEN Ordering Facility: [facility] Address: [address] [place] [address] Performed By: #### 2 4325-3 #### [facility] CLIA [id number] [address] OF [facility] CONSULTon 01-30-2025 CONSULT HNO ID: [id number] Author: CHAUNCEY GARCIA MD Service: Gastroenterology Author Type: Physician Type: Consults Filed: 01/30/2025 09:47 Note Text: GASTROENTEROLOGY CONSULT REASON FOR CONSULT: Concern for cirrhosis/portal HTN. Chief complaint: Carlo Medina is a 44 year old male who presents for worsening abdominal pain and distension with shortness of breath and cough. HPI: Mr. Carlo Medina is a very pleasant 44 year old gentleman with past medical history of HF, EG 15% on Imdur and Bumex, CKD-3, LBBB, DVT, transferred from [place] where he presented with abdominal pain, shortness of breath, cough. 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 Of note, patient admitted at [facility] in August 2024 for similar complaints when extensive work up showed unremarkable/negative viral hepatitis, ceruloplasmin, iron studies, alpha 1 antitrypsin, ASMA, AMA, TSH, HIV1/2, Syphilis. His LFTs have shown elevated bilirubin and mild ALT/AST/ALK P elevation since at least 1 year. CBC with normal platelet count (384 - most recent). Last imaging on [facility] -CT from 08/2024 - no splenomegaly. US doppler with biphasic flow in the PV and hepatomegaly. No prior alcohol use, no family h/o liver disease. Multiple hospitalization for HF exacerbation. No past medical history on file. No past surgical history on file. Current Facility-Administered Medications Medication Dose Route Frequency apixaban 5 mg tab(s) (ELIQUIS) 5 mg ORAL BID isosorbide dinitrate 20 mg tab(s) (ISORDIL) 20 mg ORAL TID bumetanide 1 mg tab(s) (BUMEX) 1 mg ORAL BID acetaminophen 650 mg tab(s) (TYLENOL) 650 mg ORAL q 4 H PRN aluminum-magnesium hydroxide-simethicone 200-200-20 mg/5 mL 30 mL 30 mL ORAL q 6 H PRN ondansetron (PF) 4 mg injection (ZOFRAN) 4 mg INTRAVENOUS q 6 H PRN NaCl 0.9% iv flush bag 20 mL INTRAVENOUS PRN ALLERGIES Allergen Reactions Sacubitril-Valsartan Other: See Comments, Vomiting Family history reviewed. No history of colon cancer or IBD. REVIEW OF SYSTEMS 12 point system reviewed and negative other than HPI/interval history/review of systems. PHYSICAL EXAMINATION: BP 126/94 Pulse 88 Temp (Src) 97.4 (Oral) Resp 14 Ht 6' 1.622 (1.87m) Wt 176 lb (79.8kg) SpO2 95% BMI 22.83 kg/(m2). O2 Therapy: Room Air GENERAL APPEARANCE: Well appearing, alert, in no acute distress, oriented X 3 SKIN: no suspicious rashes EYES: icteric sclera. Pallor mild Extraocular movements are intact. NECK: Supple LUNGS: clear HEART: S1/S2 normal. ABDOMEN: soft distension, free fluid. EXTREMITIES: pedal edema NEUROLOGIC: grossly non focal. No asterixis. LABS: Lab tests reviewed. Hemoglobin (g/dL) Date Value 01/30/2025 13.4 Hematocrit (%) Date Value 01/30/2025 42.4 WBC (k/uL) Date Value 01/30/2025 7.37 Platelet Count (k/uL) Date Value 01/30/2025 383 Creatinine Date Value Ref Range Status 01/30/2025 2.24 (H) 0.73 - 1.22 mg/dL Final AST Date Value Ref Range Status 01/30/2025 15 14 - 40 U/L Final ALT Date Value Ref Range Status 01/30/2025 10 10 - 54 U/L Final Bilirubin, Total (mg/dL) Date Value 01/30/2025 3.8 (H) Bilirubin, Direct (mg/dL) Date Value 01/30/2025 2.6 (H) WBC (k/uL) Date Value 01/30/2025 7.37 RBC (m/uL) Date Value 01/30/2025 4.04 (L) %DIG,%DBS TSH (mIU/L) Date Value 01/20/2025 3.480 IMAGING: As above in HPI. Prior Endoscopy None. Assessment and Plan Mr. Carlo Medina is a very pleasant 44 year old AA gentleman with past medical history of HF, EG 15% on Imdur and Bumex, CKD-3, LBBB, DVT, transferred from [place] where he presented with abdominal pain, shortness of breath, cough. 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 Ascites - ? Cirrhosis/portal hypertension. Extensive work in the past has been negative for liver disease. Previous imaging has shown hepatic steatosis but no cirrhosis. No evidence of portal hypertension with normal platelet count, no clinical signs of portal hypertension and no splenomegaly. Previous ultrasound liver Doppler with normal blood flow. Ascites most likely secondary to his heart failure. Abnormal LFTs. Likely secondary to congestive hepatopathy. Recommendation. Repeat ultrasound liver. Management of heart failure exacerbation as per primary team. Avoid overdiuresis. Avoid hepatotoxic medication. Will continue to follow. Paracentesis with fluid cell count and albumin. Please call us with any additional questions. Chauncey Garcia MD 9:[address] [facility] CONSULT HNO ID: [id number] Author: GUS RESENDEZ MD Service: Clinical Cardiology Author Type: Physician Type: Consults Filed: 01/30/2025 09:00 Note Text: CARDIOLOGY CONSULT NOTE SERVICE DATE: 01/30/2025 SERVICE TIME: 8:31 AM CONSULTING PHYSICIAN: Gus Resendez PCP: No primary care provider on file. ATTENDING: Nic Rosado,* REASON FOR CONSULT: CHF CHIEF COMPLAINT: Ascites of liver [R18.8] HPI:Cardiac consultation at the request of Dr. Vargas Rea. Mr. Medina is a 44 year old male who is seen today for CHF. He has a history of heart failure with reduced ejection fraction (LV ejection fraction 15% on echocardiogram from 01/21/2025), cirrhosis of the liver, chronic kidney disease stage III, left bundle branch block, history of DVT. He does have a history of heart failure with reduced ejection fraction,, and has had multiple admissions to [facility] (most recent admission to [facility] was in 01/21, where he was seen by Dr Maged Correa). He was supposed to be on guideline directed medical therapy with Isordil, hydralazine, Cozaar, Coreg. Patient reportedly stopped hydralazine because he did not feel well on it, and refused addition of angiotensin receptor jerome. He also refused placement of an IV after the IV access was lost. He was ultimately discharged to go home. Electrophysiology service was consulted during the hospital stay, and they determined that he was not a candidate for ICD at that time because he had not completed 3 months of guideline directed medical therapy, and he was also noted to have a narrow QRS complex of less than 150 ms. He was admitted to [facility] withlower extremity edema, abdominal bloating. Apparently, this has been going on for the last 7 to 10 days. He denies feeling any chest pain, palpitations. As described above, he has refused multiple medications, and institution of guideline directed medical therapy has been difficult for this reason. He mentioned that several of those medications made him sick In terms of cardiac workup, he underwent an echocardiogram in 01/21, which revealed an LV ejection fraction of 15%, dilated right ventricle, severe biatrial dilatation (LA 59 mL/m?). He was noted to have moderate to severe mitral regurgitation due to apical tethering of mitral leaflets (effective regurgitant orifice area 0.22 cm?), 3-4+ tricuspid regurgitation caused by annular dilatation. Since admission, he has felt better with iv lasix, and has noticed some improvement in his breathing. At present, the patient is comfortable in bed, talking in full sentences, and is not overtly short of breath . He had NYHA Class III - IV at presentation. No past medical history on file. No past surgical history on file. SOCIAL HISTORY No family history on file. ALLERGIES: ALLERGIES Allergen Reactions Sacubitril-Valsartan Other: See Comments, Vomiting MEDICATIONS: apixaban (ELIQUIS) 5 mg tab(s)Take 5 mg by mouth two times a day.Disp: Rfl: isosorbide dinitrate (ISORDIL) 20 mg tabletTake 20 mg by mouth three times a day.Disp: Rfl: PHYSICAL EXAMINATION: BP 126/94 Pulse 88 Temp (Src) 97.4 (Oral) Resp 14 Ht 6' 1.622 (1.87m) Wt 176 lb (79.8kg) SpO2 95% BMI 22.83 kg/(m2). O2 Therapy: Room Air General: Well appearing, in no acute distress, speaking in complete sentences., Well appearing. Psych: Normal Affect Eyes: No subconjunctival hemorrhage Skin: No rash, bruising Oropharynx: Mucous membranes normal Neck: + jugular venous distention to the tragus of the ear, no carotid bruits. Lymph: No cervical lymphadenopathy Lungs: Clear to auscultation bilaterally, no wheezing or rhonchi. Heart: S1, S2 normal, no murmur Extremities: 1-2+ peripheral edema Neuro: Grossly nonfocal LABS: 12 lead EKG 01/30/2025 00: 20: Normal sinus rhythm and nonspecific intraventricular conduction delay, premature ventricular complexes. Right axis deviation QTc 156 msec. Past 72 Hour Labs: Recent Labs 01/30/25 0005 WBC 7.37 RBC 4.04* HB 13.4 HCT 42.4 MCV 105.0* MCH 33.2 MCHC 31.6 RDWCV 16.2* PLT 383 MPV 10.0 GLUC 101* BUN 31* CREAT 2.24* NA 144 K 4.0 CHLOR 104 CO2 23 TPROT 6.6 ALB 3.4* CA 9.1 ALKPHOS 436* TBILI 3.8* AST 15 ALT 10 PTSEC 15.0* APTT 31.1 INR 1.4* MG 2.3 Lab Results Component Value Date HSTNT 43 (H) 01/30/2025 HSTNT 48 (H) 01/30/2025 HSTNT 52 (H) 01/19/2025 NT Pro BNP Date Value Ref Range Status 01/30/2025 37,110 (H) <125 pg/mL Final No intake or output data in the 24 hours ending 01/30/25 0831 Last Lab Drawn: TSH 3.480 01/20/2025 Impression/Recommenda tions Active Problems: Ascites of liver (POA: Yes) Assessment AND Plan: Decisions about paracentesis as per the primary team. Start IV Lasix. He will also benefit from the addition of Aldactone. This being said, patient has been unable to tolerate multip (more content not included)... Normal [facility] Comprehensive metabolic 2000 panelon 01-30-2025 Albumin [Mass/Vol] 3.4 g/dL Low 3.9-4.9 [facility] Comment on above: Order Comment: Specdaniella reynoso Type: BLOOD SPECIMEN Ordering Facility: [facility] Address: [facility] [place] [address] Performed By: #### 2 5-3 #### [facility] CLIA [id number] [address] ALP [Catalytic activity/Vol] 436 U/L High 38-113 [facility] Comment on above: Order Comment: Kimi angeles Type: BLOOD SPECIMEN Ordering Facility: [facility] Address: [address] [place] [address] Performed By: #### 2 5-3 #### [facility] CLIA [id number] [address] ALT With P-5'-P [Catalytic activity/Vol] 10 U/L Normal 10-54 [facility] Comment on above: Order Comment: Kimi men Type: BLOOD SPECIMEN Ordering Facility: [facility] Address: [address] [place] [address] Performed By: #### 2 5-3 #### [facility] CLIA [id number] [address] Anion gap [Moles/Vol] 17 mmol/L High 8-15 [facility] Comment on above: Order Comment: Kimi angeles Type: BLOOD SPECIMEN Ordering Facility: [facility] Address: [address] [place] [address] Performed By: #### 2 5-3 #### [facility] CLIA [id number] 1 [place] [address] [place] AST With P-5'-P [Catalytic activity/Vol] 15 U/L Normal 14-40 [facility] Comment on above: Order Comment: Speci men Type: BLOOD SPECIMEN Ordering Facility: [facility] Address: [address] [place] [address] Performed By: #### 2 4325-3 #### [facility] CLIA [id number] 1 [place] [address] [place] Bilirubin [Mass/Vol] 3.8 mg/dL High 0.2-1.3 [facility] Comment on above: Order Comment: Speci men Type: BLOOD SPECIMEN Ordering Facility: [facility] Address: [address] [place] [address] Performed By: #### 2 4325-3 #### [facility] CLIA [id number] 1 [place] [address] [place] Calcium [Mass/Vol] 9.1 mg/dL Normal 8.5-10.2 [facility] Comment on above: Order Comment: Speci men Type: BLOOD SPECIMEN Ordering Facility: [facility] Address: [address] [place] [address] Performed By: #### 2 4325-3 #### [facility] CLIA [id number] 1 [place] [address] [place] Chloride [Moles/Vol] 104 mmol/L Normal 98-107 [facility] Comment on above: Order Comment: Speci men Type: BLOOD SPECIMEN Ordering Facility: [facility] Address: [address] [place] [address] Performed By: #### 2 4325-3 #### [facility] CLIA [id number] 1 [place] [address] [place] CO2 [Moles/Vol] 23 mmol/L Normal 22-30 [facility] Comment on above: Order Comment: Speci men Type: BLOOD SPECIMEN Ordering Facility: [facility] Address: [address] [place] [address] Performed By: #### 2 4325-3 #### [facility] CLIA [id number] 1 [place] [address] [place] Creatinine [Mass/Vol] 2.24 mg/dL High 0.73-1.22 [facility] Comment on above: Order Comment: Sunni reynoso Type: BLOOD SPECIMEN Ordering Facility: [facility] Address: [address] [place] [address] Performed By: #### 2 4325-3 #### [facility] CLIA [id number] [address] OF [facility] eGFRcr SerPlBld CKD-EPI 2020 36 mL/min/1.73m??? Low >=60 [facility] Comment on above: Order Comment: Sunni reynoso Type: BLOOD SPECIMEN Ordering Facility: [facility] Address: [address] [place] [address] Result Comment: Ella mated Glomerular Filtration Rate [...] reflect actual GFR. Performed By: #### 2 4325-3 #### [facility] CLIA [id number] [address] [place] Glucose [Mass/Vol] 101 mg/dL High 74-99 [facility] Comment on above: Order Comment: Sunni reynoso Type: BLOOD SPECIMEN Ordering Facility: [facility] Address: [address] [place] [address] Result Comment: The [place] [employer] (ADA) provides guidance for cutoff [...] Standards of Medical Care in Diabetes 2016, [place] [employer]. Diabetes Care. 2016.39(Suppl 1). Performed By: #### 2 4325-3 #### [facility] CLIA [id number] [address] [place] Potassium [Moles/Vol] 4.0 mmol/L Normal 3.7-5.1 [facility] Comment on above: Order Comment: Speci men Type: BLOOD SPECIMEN Ordering Facility: [facility] Address: [address] [place] [address] Performed By: #### 2 5-3 #### [facility] CLIA [id number] [address] STATES OF [facility] Protein [Mass/Vol] 6.6 g/dL Normal 6.3-8.0 [facility] Comment on above: Order Comment: Speci men Type: BLOOD SPECIMEN Ordering Facility: [facility] Address: [address] [place] [address] Performed By: #### 2 5-3 #### [facility] CLIA [id number] [address] STATES OF [facility] Sodium [Moles/Vol] 144 mmol/L Normal 136-144 [facility] Comment on above: Order Comment: Speci men Type: BLOOD SPECIMEN Ordering Facility: [facility] Address: [address] [place] [address] Performed By: #### 2 5-3 #### [facility] CLIA [id number] [address] [place] Urea nitrogen [Mass/Vol] 31 mg/dL High 9-24 [facility] Comment on above: Order Comment: Speci men Type: BLOOD SPECIMEN Ordering Facility: [facility] Address: [address] [place] [address] Performed By: #### 2 5-3 #### [facility] CLIA [id number] [address] [place] DIRECT BILIRUBIN BLOODon Bilirubin.conjugated [Mass/Vol] 2.6 mg/dL High <0.3 [facility] Comment on above: Order Comment: Speci men Type: BLOOD SPECIMEN Ordering Facility: [facility] Address: [address] [place] [id number] Performed By: #### 2 4325-3 #### [facility] CLIA [id number] [address] OF [facility] ECG COMPLETEon 01-30-2025 ECG COMPLETE Ventricular Rate : 9 5 BPM Atrial Rate : 95 BPM P-R Interval : 144 ms QRS Duration : 156 ms Q-T Interval : 442 ms QTC Calculation(Bazett) : 555 ms Calculated P Cylinder : 71 degrees Calculated R Cylinder : 153 degrees Calculated T Cylinder : -29 degrees SINUS RHYTHM WITH PREMATURE ATRIAL COMPLEXES WITH ABERRANT CONDUCTION POSSIBLE LEFT ATRIAL ENLARGEMENT NON-SPECIFIC INTRA-VENTRICULAR CONDUCTION BLOCK POOR R WAVE PROGRESSION WHEN COMPARED WITH ECG OF 22-Aug-2024 21:24, ABERRANT CONDUCTION IS NOW PRESENT QUESTIONABLE CHANGE IN QRS AXIS T WAVE INVERSION NOW EVIDENT IN INFERIOR LEADS Confirmed by MD SOOD DAVID ([id number]) on 01/31/2025 8:37:57 AM NAME : CARLO MEDINA PID : [id number] : 1980 Gender : Male Race : ORD : [id number] Procedure Date : Jan 30 2025 00:20:12 Edit Date : Jan 31 2025 08:38:10 Diagnosis: SINUS RHYTHM WITH PREMATURE ATRIAL COMPLEXES WITH ABERRANT CONDUCTION POSSIBLE LEFT ATRIAL ENLARGEMENT NON-SPECIFIC INTRA-VENTRICULAR CONDUCTION BLOCK POOR R WAVE PROGRESSION WHEN COMPARED WITH ECG OF 22-Aug-2024 21:24, ABERRANT CONDUCTION IS NOW PRESENT QUESTIONABLE CHANGE IN QRS AXIS T WAVE INVERSION NOW EVIDENT IN INFERIOR LEADS Confirmed by MD SOOD DAVID ([id number]) on 01/31/2025 8:37:57 AM Test Reason : Shortness of Breath Location : 200 : [facility] 4101 Overread By : MD SOOD DAVID Edited By : MD SOOD DAVID Referred By : VARGAS REA Acquired by : TIKA MURILLO [facility] HIGH SENSITIVITY TROPONIN To n 01-30-2025 Troponin T.cardiac High sensitivity method [Mass/Vol] 43 ng/L High <12 [facility] Comment on above: Order Comment: Speci men Type: BLOOD SPECIMENOrdering Facility: [facility] Address: [address] [place] [address] Performed By: #### H STNT ####[facility] [id number] [address] Troponin T.cardiac High sensitivity method [Mass/Vol] 48 ng/L High <12 [facility] Comment on above: Order Comment: Speci men Type: BLOOD SPECIMENOrdering Facility: [facility] Address: [address] [place] [address] Performed By: #### H STNT ####[facility] [id number] [address] OF [facility] Magnesium SerPl-mCncon 01-30 Magnesium [Mass/Vol] 2.3 mg/dL Normal 1.7-2.3 [facility] Comment on above: Order Comment: Speci men Type: BLOOD SPECIMEN Ordering Facility: [facility] Address: [address] [place] [address] Performed By: #### 2 4325-3 #### [facility] CLIA [id number] [address] NT-proBNP SerPl-mCncon 01-30 Natriuretic peptide.B prohormone N-Terminal [Mass/Vol] 94584 pg/mL High <125 [facility] Comment on above: Order Comment: Speci men Type: BLOOD SPECIMENOrdering Facility: [facility] Address: [address] [place] [address] Performed By: #### D EVANS, 05744-6, 32984-5, 77004-5 ####[facility] [id number] [place] [address] [place] NURSING PROGon 01-30-2025 NURSING PROG HNO ID: [id number] Author: MARYJANE HERCULES RN Service: Nursing Author Type: Registered Nurse Type: Nursing Progress Note Filed: 01/30/2025 19:00 Note Text: This RN went to administer patient's evening dose of lasix. This RN told the patient that he would be receiving 80 mg of lasix through his IV, and patient asked if he could only take 40 mg. This RN explained that the doctors chose this high of a dose initially in to pull off excess fluid. Patient stated that he does not think he has that much fluid on him and his breathing is not that bad right now. RN administered 40 mg of lasix per patient request and let primary physician know as well as cardiology. Normal [facility] PT panel Coag (PPP)on 2024 INR Coag (PPP) [Relative time] 1.4 {INR} High 0.9-1.3 [facility] Comment on above: Order Comment: Sunni reynoso Type: BLOOD SPECIMENOrdering Facility: [facility] Address: [address] [place] [address] Result Comment: Gayla min K Antagonist (VKA) Therapeutic Range: INR 2 to 3 (Target INR of 2.5) Note: For patients treated with VKA drugs, such as warfarin, the [place] [employer] 2012 Guideline recommends [...] Chest 2012, 141:7S-47S Evelyn RA, et al. [facility] 2017, 70: 252-289 Performed By: #### 1 4979-9, 76449-9 ####[facility] [id number] [place] [address] [place] PT Coag (PPP) [Time] 15.0 s High 9.7-13.0 [facility] Comment on above: Order Comment: Sunni reynoso Type: BLOOD SPECIMENOrdering Facility: [facility] Address: [address] [place], [place] [address] Performed By: #### 1 4979-9, 32515-4 ####[facility] [id number] [place] [id number] [facility] XR CHEST 1V FRONTALon 2024 XR CHEST 1V FRONTAL * * *Final Report* * * DATE OF EXAM: Jan 30 2025 12:10AM AKX 5290 - XR CHEST 1V FRONTAL / PROCEDURE REASON: Shortness of breath * * * * Physician Interpretation * * * * EXAMINATION: CHEST RADIOGRAPH (SINGLE VIEW AP OR PA) CLINICAL HISTORY: Shortness of breath MQ: XC1_5 Comparison: 01/19/2025 RESULT: Lines, tubes, and devices: None. Lungs and pleura: No focal airspace opacity, pleural effusion, or pneumothorax. Cardiomediastinal silhouette: Unchanged cardiomegaly. Other: No acute osseous findings. IMPRESSION: 1. No acute findings. 2. Unchanged cardiomegaly. Paraprofessional Aide: PSCB Transcribe Date/Time: Jan 30 2025 1:59A Dictated by : ALONZO JJ MD This examination was interpreted and the report reviewed and electronically signed by: ALONZO JJ MD on Jan 30 2025 2:01AM EST [id number] Normal [facility] aPTT PPPon 01-30-2025 aPTT Coag (PPP) [Time] 31.1 s Normal 23.0-32.4 [facility] Comment on above: Order Comment: Speci men Type: BLOOD SPECIMENOrdering Facility: [facility] Address: [address] [place], [place] [address] Performed By: #### 1 4979-9, 50960-5 ####[facility]IA [id number] [place] [address] [facility] [place] 12 Lead EKGon 01-29-2025 12 Lead EKG [facility] [address] [place] [address] 12 Lead EKG 01/29/25 0814 MR#: [id number] Acct: [id number] Name: CARLO MEDINA Rep #: [id number] : 1980 44 From: Clark Almaraz MD Attending Dr: Status: DEP ER Ordering Dr: Vargas Rea DO Date: 01/29/25 Location: ED Sex: M AA Admitted: Test Reason : SOB Blood Pressure : */* mmHG Vent. Rate : 107 BPM Atrial Rate : 107 BPM P-R Int : 152 ms QRS Dur : 90 ms QT Int : 390 ms P-R-T Axes : 56 -37 110 degrees QTcB Int : 520 ms Sinus tachycardia with Fusion complexes Left axis deviation Minimal voltage criteria for LVH, may be normal variant ( Harrison product ) Nonspecific T wave abnormality Prolonged QT Abnormal ECG Confirmed by CLARK ALMARAZ MD ([id number]), editorial writer RADHA DUONG ([id number]) on 02/01/2025 7:54:42 AM Referred By: Confirmed By: CLARK ALMARAZ MD 02/01/25 0754 Date Clark Almaraz MD CC: Dr. Vargas Rea DO; No Primary Care Physician Signed Normal [facility] Abdomen Completeon Abdomen Complete [facility] Imaging Services [address] [place] [id number] Abdomen Complete MR#: [id number] Acct: [id number] Name: CARLO MEDINA Rep #: [id number] : 1980 M 44 From: Leatha Wallace nd, MD PCP: Care Physician,No Primary Status: REG ER Study: Abdomen Complete Date of Exam: 01/29/25 Exam# [id number] Ordering Dr: Vargas Rea DO PROCEDURE: ABDOMEN COMPLETE N/A REASON FOR EXAM: ABD PAIN, ELEVATED BILI TECHNIQUE: ABDOMEN COMPLETE COMPARISON: Same day CT abdomen pelvis, prior limited abdominal ultrasound 01/04/2025. FINDINGS: Liver: Normal in size, with diffuse echogenicity suggesting fatty infiltration. The bile ducts are within normal limits. The main portal vein is patent with normal directional flow at midline. Gallbladder: No stones, sludge, wall thickening or tenderness. Common bile duct: Normal measuring 0.4 cm. Pancreas: Visualized portions are sonographically unremarkable. Kidneys: The right kidney measures 8.9 x 5.5 x 5.1 cm. The left kidney measures 8.9 x 4.6 x 6.0 cm. Mild symmetric renal cortical scarring. No hydronephrosis. Spleen: Normal in size and echotexture measuring 9.2 x 3.4 x 2.7 cm. Aorta: Visualized abdominal aorta is of normal size. IVC: Visualized inferior vena cava is unremarkable. Peritoneal Findings: Large volume ascites. US/Abdomen Complete IMPRESSION: Hepatic fibrosis/steatosis. Large volume ascites. Consider diagnostic and therapeutic paracentesis for further evaluation as clinically indicated. Reading Location: [facility] CC: Dr. Vargas Rea DO; No Primary Care Physician Paraprofessional Aide: Signed Normal [facility] Abdomen/Pelvis W IV Cont ONL Yon 01-29-2025 Abdomen/Pelvis W IV Cont ONLY [facility] Imaging Services [address] [place] [address] Abdomen/Pelvis W IV Cont ONLY MR#: [id number] Acct: [id number] Name: CARLO MEDINA Rep #: [id number] : 1980 M 44 From: Leatha Wallace nd, MD PCP: Care Physician,No Primary Status: REG ER Study: Abdomen/Pelvis W IV Cont ONLY Date of Exam: Exam# [id number] Ordering Dr: Vargas Rea DO PROCEDURE: ABDOMEN/PELVIS W IV CONT ONLY 01/29/2025 REASON FOR EXAM: ABD PAIN, AND BLOATING TECHNIQUE: ABDOMEN/PELVIS W IV CONT ONLY Coronal and Sagittal reconstruction series were provided. CONTRAST: Isovue 370 VOLUME: 100 mL One or more dose reduction techniques were used (e.g., Automated exposure control, adjustment of the mA and/or kV according to patient size, use of iterative reconstruction technique. RADIATION DOSE SUMMARY: DLP: 700 mGycm COMPARISON: Limited abdominal ultrasound 01/04/2025. FINDINGS: Visualization is significantly limited by motion artifact and timing of contrast bolus (patient vomited during scan). Patient declined repeat scanning. Lung bases: Probable right lower lung opacities. Severe cardiomegaly. Liver: The liver is normal in size. Gallbladder: Present. Spleen: Normal-size. Pancreas: Unable to evaluate. Adrenals: Unable to evaluate. Kidneys: No nephrolithiasis. Bladder: Decompressed. Reproductive Organs: Poorly visualized. Bowel: The bowel loops are nondilated. Large volume abdominopelvic ascites. No large volume free air. Unable to evaluate appendix. Lymph nodes: Unable to evaluate. Vasculature: Grossly normal caliber. Bones: Grossly unremarkable. CT/Abdomen/Pelvis W IV Cont ONLY IMPRESSION: 1. Significantly limited examination. 2. Probable right lower lung opacities, which may reflect pneumonitis/pneumonia . 3. Large volume ascites. 4. Severe cardiomegaly. Reading Location: [id number] CC: Dr. Vargas Rea, DO; No Primary Care Physician Paraprofessional Aide: Signed Normal [facility] Absolute lymphocyte countOrd ered By: Vargas Rea on 01-29-2025 Lymphocytes Auto (Unsp spec) [#/Vol] 2.12 10*3/uL 0.83-4.51 [facility] Absolute neutrophil countOrd ered By: Vargas Rea on 01-29-2025 Neutrophils (Bld) [#/Vol] 4.7 10*3/uL 2.0-7.7 [facility] Activated partial thrombopla stin time (aPTT) in platelet poor plasma by coagulation aOrdered By: Vargas Rea on 01-29-2025 aPTT Coag (PPP) [Time] 32.5 s 24.1-36.2 [facility] Anion gap in Serum or Plasma Ordered By: Vargas Rea on 01-29-2025 Anion gap [Moles/Vol] 16 mmol/L High 5-[address] [facility] Automated lymphocyte count a s percentage of total leukocytesOrdered By: Vargas Rea on 01-29-2025 Lymphocytes/100 WBC Auto (Unsp spec) 28.4 % 19-41 [facility] BUN/creatinine ratioOrdered By: Vargas Rea on 01-29-2025 Urea nitrogen/Creatinine [Mass ratio] 14.7 mg/mg 10-20 [facility] Basic Metabolic Profile (BMP )on 01-29-2025 BUN/CRE 14.7 RATIO Normal - [facility] Comment on above: Performed By: #### L 500.4050 #### [facility] [address] [place], [address] Calcium [Mass/Vol] 9.1 mg/dL Normal 7.6-11.0 [facility] Comment on above: Performed By: #### L 500.4050 #### [facility] [address] [place], [address] Chloride [Moles/Vol] 104 mmol/L Normal 98-108 [facility] Comment on above: Performed By: #### L 500.4050 #### [facility] [address] [place], [address] CO2 [Moles/Vol] 21.1 mmol/L Normal 21.0-32.0 [facility] Comment on above: Performed By: #### L 500.4050 #### [facility] [address] [place], [address] Creatinine [Mass/Vol] 2.47 mg/dL High 0.70-1.[address] [facility] Comment on above: Result Comment: Icte lizet present, Results may be affected. Performed By: #### L 500.4050 #### [facility] [address] [place], [address] ECRCL 41.81 ml/min Low 50-250 [facility] Comment on above: Performed By: #### L 500.4050 #### [facility] [address] [place], [address] GAP 16 High 5-15 [facility] Comment on above: Performed By: #### L 500.4050 #### [facility] [address] [place], [address] GFR/1.73 sq M.predicted among non-blacks MDRD (S/P/Bld) [Vol rate/Area] 32 mL/min/{1.73_m2} Low >60 [facility] Comment on above: Result Comment: mL/m in/1.73m2 CKD-EPI Creatinine Equation (2020) Performed By: #### L 500.4050 #### [facility] [address] [place], [address] Glucose [Mass/Vol] 130 mg/dL High 70-99 [facility] Comment on above: Performed By: #### L 500.4050 #### [facility] [address] [place], [address] Potassium [Moles/Vol] 4.4 mmol/L Normal 3.3-5.[address] [facility] Comment on above: Performed By: #### L 500.4050 #### [facility] [address] [place], [address] Sodium [Moles/Vol] 141 mmol/L Normal 133-145 [facility] Comment on above: Performed By: #### L 500.4050 #### [facility] [address] [place], [address] Urea nitrogen [Mass/Vol] 36 mg/dL High 4-19 [facility] Comment on above: Performed By: #### L 500.4050 #### [facility] [address] [place], [address] Basophil percentageOrdered B y: Vargas Rea on 01-29-2025 Basophils/100 WBC (Bld) 0.7 % 0-1 [facility] Bilirubin directOrdered By: Vargas Rea on 01-29-2025 Bilirubin.direct [Mass/Vol] 3.02 mg/dL High 0.00-0.30 [facility] Bilirubin, totalOrdered By: Vargas Rea on 01-29-2025 Bilirubin [Mass/Vol] 4.74 mg/dL High 0.00-1.30 [facility] CBC W/Diff, Automatedon 08-0 2-2024 Absolute Lymph 2.12 X10 3/uL Normal 0.83-4.51 [facility] Comment on above: Performed By: #### L 500.4050 #### [facility] [address] [place], [address] Absolute Neut 4.7 X10 3/uL Normal 2.0-7.7 [facility] Comment on above: Performed By: #### L 500.4050 #### [facility] [address] [place], [address] Basophils/100 WBC (Bld) 0.7 % Normal 0-1 [facility] Comment on above: Performed By: #### L 500.4050 #### [facility] [address] [place], [address] Eosinophils/100 WBC (Bld) 0.3 % Normal 0-5 [facility] Comment on above: Performed By: #### L 500.4050 #### [facility] [address] [place], [address] Erythrocyte distribution width (RBC) [Ratio] 16.3 % High 11.6-14.6 [facility] Comment on above: Performed By: #### L 500.4050 #### [facility] [address] [place], [address] Hematocrit (Bld) [Volume fraction] 42.0 % Normal 40-54 [facility] Comment on above: Performed By: #### L 500.4050 #### [facility] [address] [place], [address] Hemoglobin (Bld) [Mass/Vol] 13.4 g/dL Normal 13.0-16.5 [facility] Comment on above: Performed By: #### L 500.4050 #### [facility] [address] [place], [address] IG% 0.300 Normal 0.0-0.9 [facility] Comment on above: Result Comment: IG% - Immature Granulocytes (promyelocytes, myelocytes and metamyelocytes) > 1% indicates that a LEFT SHIFT is Present. Performed By: #### L 500.4050 #### [facility] [address] [place], [address] Lymphocytes/100 WBC (Bld) 28.4 % Normal 19-41 [facility] Comment on above: Performed By: #### L 500.4050 #### [facility] [address] [place], [address] MCH (RBC) [Entitic mass] 32.8 pg High 27.0-32.0 [facility] Comment on above: Performed By: #### L 500.4050 #### [facility] [address] [place], [address] MCHC (RBC) [Mass/Vol] 31.9 g/dL Low 32-[address] [facility] Comment on above: Performed By: #### L 500.4050 #### [facility] [address] [place], [address] MCV (RBC) [Entitic vol] 102.9 fL High 80-94 [facility] Comment on above: Performed By: #### L 500.4050 #### [facility] [address] [place], [address] Monocytes/100 WBC (Bld) 8.2 % Normal 0-10 [facility] Comment on above: Performed By: #### L 500.4050 #### [facility] [address] [place], [address] Neutrophils/100 WBC (Bld) 62.1 % Normal 47-70 [facility] Comment on above: Performed By: #### L 500.4050 #### [facility] [address] [place], [address] Nucleated RBC (Bld) [#/Vol] 0.7 10*3/uL Normal 0-5 [facility] Comment on above: Performed By: #### L 500.4050 #### [facility] [address] [place], [address] Platelet mean volume (Bld) [Entitic vol] 10.2 fL Normal 6.2-12.0 [facility] Comment on above: Performed By: #### L 500.4050 #### [facility] [address] [place], [address] Platelets (Bld) [#/Vol] 368 10*3/uL Normal 150-450 [facility] Comment on above: Performed By: #### L 500.4050 #### [facility] [address] [place], [address] RBC (Bld) [#/Vol] 4.08 10*6/uL Low 4.6-6.2 [facility] Comment on above: Performed By: #### L 500.4050 #### [facility] [address] [place], [address] RDW SD 61.2 fl High 35.1-43.9 [facility] Comment on above: Performed By: #### L 500.4050 #### [facility] [address] [place], [address] WBC (Bld) [#/Vol] 7.5 10*3/uL Normal 4.4-11.0 [facility] Comment on above: Performed By: #### L 500.4050 #### [facility] [address] [place], [address] Carbon dioxide, total [Moles /volume] in Central venous bloodOrdered By: Vargas Rea on 01-29-2025 CO2 [Moles/Vol] 21.1 mmol/L 21.0-32.0 [facility] Chest PA and Lateralon 01-29 Chest PA and Lateral [facility] Imaging Services [address] [place] [address] Chest PA and Lateral MR#: [id number] Acct: [id number] Name: CARLO MEDINA Rep #: [id number] : 1980 M 44 From: Otoniel Rivers MD PCP: Care Physician,No Primary Status: REG ER Study: Chest PA and Lateral Date of Exam: 01/29/25 Exam# [id number] Ordering Dr: Vargas Rea DO PROCEDURE: CHEST PA AND LATERAL 01/29/2025 REASON FOR EXAM: CHEST PAIN TECHNIQUE: CHEST PA AND LATERAL COMPARISON: 01/04/2025 FINDINGS: Hardware: EKG leads overlie the chest Heart: Stable cardiomegaly. Mediastinum: The mediastinal contour is unremarkable. Lungs: Lungs are expanded without a superimposed process, previously noted atelectasis has resolved Bones: Degenerative changes are identified within the thoracic spine. RAD/Chest PA and Lateral IMPRESSION: No acute pulmonary process, stable cardiomegaly Reading Location: [id number] CC: Dr. Vargas Rea DO; No Primary Care Physician Paraprofessional Aide: Signed Normal [facility] Chloride assayOrdered By: Sam Rea on 01-29-2025 Chloride [Moles/Vol] 104 mmol/L 98-108 [facility] Emergency Department Summary on 01-29-2025 Emergency Department Summary [facility] Medical Records Department [address] [place] [address] Emergency Department Summary 01/29/25 MR#: [id number] Acct: [id number] Name: CARLO MEDINA Rep #: [id number] : 1980 44 From: Vargas Rea DO PCP: Care Physician,No Primary Status:REG ER Location: ED HPI History of Present Illness Chief Complaint: Shortness of Breath Narrative Narrative: Patient is a 44-year-old male with past medical history of chronic kidney disease, heart failure with reduced ejection fraction, DVT, PE, abdominal ascites who presented to the emergency department the chief complaint of shortness of breath, cough and abdominal bloating with pain. Patient states that he came today as he has shortness of breath and cough and concern for that his cough is turning into pneumonia. He states that he has been short of breath as well but notes that this is a chronic issue. [facility] Medical History Abdominal ascites CKD stage 3b, GFR 30-44 ml/min Elevated bilirubin HFrEF (heart failure with reduced ejection fraction) Left ventricular ejection fraction less than 20% Kidney disease Non-smoker Irregular heart beat DVT (deep venous thrombosis) CKD (chronic kidney disease) Cardiomyopathy Left bundle branch block Noncompliance Pulmonary embolism CHF (congestive heart failure) Home Medications ???Medication ???Instructions ???Recorded ???Last Taken ???Type apixaban 5 mg tablet (Eliquis) 5 mg PO BID 01/04/25 01/28/25 Hist ory bumetanide 1 mg tablet 1 mg PO BID 01/04/25 01/28/25 Hist ory isosorbide dinitrate 20 mg tablet 20 mg PO Q8H 01/04/25 01/28/25 Hi story Allergy/AdvReac Type Severity Reaction Status Date / Time No Known Allergies Allergy Verified 01/29/25 07:50 Family History Father Heart disease Brother Heart disease Social History Smoking Status: Never smoker alcohol intake: never substance use type: does not use ROS ROS ED ROS Narrative Constitutional: Denies any fevers, chills, headaches Cardiovascular: Denies chest pain Respiratory: Complains of cough and shortness of breath states he is coughing stuff up Abdomen: Complains of abdominal bloating and pain denies nausea vomiting diarrhea : Denies any urinary symptoms Neurological: Denies any numbness, weakness, tingling Musculoskeletal: Complains of lower extremity swelling denies back pain Skin: Denies any rashes or lesions EXAM Physical Exam Narrative Exam Narrative: General: Patient lying in bed rest comfortably did not appear to be in acute distress Head: Atraumatic, normocephalic Eyes: PERRL bilaterally, EOMI blood, no conjunctival injection noted Neck: Soft, supple, trachea midline Cardiovascular: Regular rate and rhythm Respiratory: Clear to auscultation bilaterally Abdomen: Soft, distended, diffuse tenderness palpation no rebound or guarding on exam Extremities: Patient has 2+ pitting edema in the bilateral lower extremities, +4/5 strength noted in the bilateral upper and lower extremities Neurological: Patient follow commands that he was at [facility] years 2024 Skin: Warm, dry, tact no rashes lesions noted Const Vital Signs: 01/29/25 07:49 01/29/25 07:57 01/29/25 08:34 Temperature 97 F L Temperature Source Temporal Pulse Rate 67 Respiratory Rate 22 H Respiratory Effort Normal Non-Labored Respiratory Depth Normal Respiratory Pattern Normal Blood Pressure 180/121 H Blood Pressure Mean 140 Pulse Ox 92 Oxygen Delivery Method Room Air Nasal Cannula Nasal Cannula Oxygen Flow Rate (L/min) 01/29/25 09:34 01/29/25 11:00 01/29/25 13:00 Temperature Temperature Source Pulse Rate 101 H 95 96 Respiratory Rate 29 H 15 28 H Respiratory Effort Respiratory Depth Respiratory Pattern Blood Pressure 109/94 H Blood Pressure Mean 99 Pulse Ox 100 95 94 Oxygen Delivery Method Nasal Cannula Room Air Oxygen Flow Rate (L/min) 2 01/29/25 15:00 01/29/25 15:24 Temperature 97 F L Temperature Source Pulse Rate 98 98 Respiratory Rate 27 H 27 H Respiratory Effort Respiratory Depth Respiratory Pattern Blood Pressure 109/94 H Blood Pressure Mean 99 Pulse Ox 94 Oxygen Delivery Method Oxygen Flow Rate (L/min) MDM MDM MDM Narrative Medical decision making narrative: Patient is a 44-year-old male who presents to the emergency department with a chief complaint of cough, shortness of breath and bloating/abdominal distention. On the differential diagnosis includes but not limited to CHF exacerbation, ACS, pneumonia, pneumothorax, intra-abdominal ascites. Once wor (more content not included)... Normal [facility] Eosinophil percentageOrdered By: Vargas Rea on 01-29-2025 Eosinophils/100 WBC (Bld) 0.3 % 0-5 [facility] Erythrocyte distribution wid th ratioOrdered By: Vargas Rea on 01-29-2025 Erythrocyte distribution width (RBC) [Ratio] 16.3 % High 11.6-14.6 [facility] Erythrocyte distribution wid th standard deviationOrdered By: Vargas Rea on 01-29-2025 Erythrocyte distribution width (RBC) [Ratio] 61.2 fl High 35.1-43.9 [facility] Glomerular filtration rate ( GFR) estimation/1.73 sq m using serum, plasma, or whole bOrdered By: Vargas Rea on 01-29-2025 GFR/1.73 sq M.predicted among non-blacks MDRD (S/P/Bld) [Vol rate/Area] 32 mL/min/{1.73_m2} Low >60 [facility] Comment on above: mL/min/1.73m2 CKD-EP I Creatinine Equation (2020) HISTORY PHYSICALon HISTORY PHYSICAL HNO ID: [id number] Author: NIC ROSADO MD Service: Hospital Medicine Author Type: Physician Type: H&P Filed: 01/30/2025 05:37 Note Text: DEPARTMENT OF HOSPITAL MEDICINE HISTORY AND PHYSICAL EXAM SERVICE DATE: 01/29/2025 SERVICE TIME: 11:35 PM Primary Care Physician: No primary care provider on file. NIGHT AND WEEKEND COVERAGE: From 7am - 7pm, please call Sound After 7pm, please call cross cover pager #[phone] Subjective CHIEF COMPLAINT: abdominal distension, ble edema, sob HPI: This is a 44 year old male w/ hx HFrEF EF 15% on imdur and bumex, CKD st 3, LBBB, DVT, transferred fr [place] where he presented for worsening abdominal pain and distension w/ shortness of breath and cough, requested to pursue paracentesis/cirrhosi s workup. BP 120s/80s, Hr 50s, RR 18, afebrile, 98% spo2 on RA. Serum creatinine 2.24, alb 3.4, tbil 3.8, dbil 2.6, alk phos 436, ALT and AST wnl, troponin 48. CXR w/o acute abnormality. Labs fr [facility]: A1AT wnl, negative-dsDNA Antibody, SS-A Antibody, SS-B Antibody, Centromere Antibody, Hogan Antibody, Hogan/PATIENT REGISTRATION SPECIALIST Antibody, PATIENT REGISTRATION SPECIALIST Antibody, Scleroderma-70 Antibody, JUAN JOSE-1 Antibody, Ribosomal P Antibody, Chromatin Antibody. No past medical history on file. No past surgical history on file. No family history on file. MEDICATIONS: Meds Reviewed apixaban (ELIQUIS) 5 mg tab(s), Take 5 mg by mouth two times a day., Disp: , Rfl: , Taking isosorbide dinitrate (ISORDIL) 20 mg tablet, Take 20 mg by mouth three times a day., Disp: , Rfl: , Taking ALLERGIES Allergen Reactions Sacubitril-Valsartan Other: See Comments, Vomiting REVIEW OF SYSTEM: GENERAL: No weight loss, malaise or fevers HEENT: Negative for frequent or significant headaches, No changes in hearing or vision, no nose bleeds or other nasal problems NECK: Negative for lumps, goiter, pain and significant neck swelling RESPIRATORY: Positive for shortness of breath on exertion CARDIOVASCULAR: Negative for chest pain, leg swelling, or palpitations GI: Positive for abdominal distension : No history of dysuria, frequency or incontinence MUSCULOSKELETAL: Negative for joint pain or swelling, back pain or muscle pain SKIN: Negative for lesions, rash, and itching PSYCH: Negative for sleep disturbance, depression or anxiety NEURO: No headaches, new speech impediment or new one sided weakness or numbness Objective PHYSICAL EXAM: BP 124/84 Pulse 52 Temp (Src) 97 (Axillary) Resp 18 Ht 6' 1.622 (1.87m) Wt 176 lb (79.8kg) SpO2 98% BMI 22.83 kg/(m2). O2 Therapy: Room Air Physical Exam Performed: GENERAL: Alert, oriented x 3, no distress, cooperative SKIN: Skin color, texture, turgor normal. No rashes or lesions. HEAD/SINUSES: No significant findings EYES/EARS/NOSE: PERRLA, EOMI. External ears normal, canals clear. Nares normal, septum midline. OROPHARYNX: Lips, mucosa, and tongue normal. Teeth and gums normal. Oropharynx normal. NECK: No jugulovenous distention, No carotid bruits, Carotid pulse normal contour, Supple LUNGS: Lungs clear to auscultation, Good diaphragmatic excursion CARDIAC: Normal S1 and S2; no rubs, murmurs, or gallops ABDOMEN: Abdomen soft, distended, no tenderness to palpation EXTREMITIES: 2+ pitting edema BLE, no ulcers NEURO: Gait untested. Reflexes normal and symmetric. Sensation grossly intact, Cranial nerves II-XII intact The remainder of the physical exam is noncontributory. Lines, Drains, and Airways None Reviewed lines and needs to be continued: REASONS: Intravenous fluids, electrolyte replacement DATA: Diagnostic tests reviewed for today's visit: Most recent labs and imaging results. Most recent EKG Assessment/Plan #Liver cirrhosis with ascites, ble edema, dyspnea on exertion / hyperbilirubinemia -diagnostic/therapeut ic paracentesis care of IR on Friday, RUQ US, follow LFTs/bili, gastrohepatology consultation #HFrEF / CARRERA / mild troponin elevation -cp free, trops only mildly elevated in setting of renal insufficiency, CXR w/o pleural effusion, hx nonadehrence to medical advice, check echo, trend trops, follow tele, cardiology cs for recs #CKD st 3b -renal fxn trend at baseline, I/os, daily wts, lytes #DVT -eliquis Full code Medication and Non-Pharmacologic VTE Prophylaxis/Anticoagu lants VTE Prophylaxis: VTE prophylaxis appropriate Disposition: Home Plan of care discussed with: Provider, RN, Patient SIGNATURE: Nic Rosado MD PATIENT NAME: Carlo Medina DATE: January 29, 2025 TIME: 11:35 PM etx [id number] Normal [facility] Hematocrit Auto (Bld) [Volum e fraction]Ordered By: Vargas Rea on 01-29-2025 Hematocrit (Bld) [Volume fraction] 42.0 % 40-54 [facility] Hemoglobin measurementOrdere d By: Vargas Rea on 01-29-2025 Hemoglobin (Bld) [Mass/Vol] 13.4 g/dL 13.0-16.5 [facility] Immature granulocytes/100 WB C Auto (Bld)Ordered By: Vargas Rea on 01-29-2025 Immature granulocytes/100 WBC (Bld) 0.300 % 0.0-0.9 [facility] Comment on above: IG% - Immature Granu locytes (promyelocytes, myelocytes and metamyelocytes) > 1% indicates that a LEFT SHIFT is Present. International normalized rat io (INR) calculationOrdered By: Vargas Rea on 01-29-2025 INR Coag (Bld) [Relative time] 1.5 {INR} [facility] L501.4021on 01-29-2025 Trop T High Sen 53 ng/L High <=22 [facility] Comment on above: Result Comment: Crit ical Result(s) Called at: by:??Results read back by same. Critical Result(s) Called to: Driss EVANS (ER) by: Vianey??Results read back by same. Performed By: #### L 500.4050 #### [facility] [address] [place], [place], [address] Laboratory - Chemistry and C hemistry - challengeOrdered By: Vargas Rea on 01-29-2025 AST [Catalytic activity/Vol] 20 U/L <38 [facility] Liver Profileon 01-29-2025 Albumin [Mass/Vol] 3.5 g/dL Normal 3.5-5.0 [facility] Comment on above: Performed By: #### L 500.4050 #### [facility] [address] [place], [address] ALK PHOS 462 U/L High 40-129 [facility] Comment on above: Performed By: #### L 500.4050 #### [facility] [address] [place], [address] ALT [Catalytic activity/Vol] 10 U/L Normal <=46 [facility] Comment on above: Performed By: #### L 500.4050 #### [facility] [address] [place], [address] AST [Catalytic activity/Vol] 20 U/L Normal <=37 [facility] Comment on above: Performed By: #### L 500.4050 #### [facility] [address] [place], [address] Bilirubin [Mass/Vol] 4.74 mg/dL High 0.00-1.30 [facility] Comment on above: Performed By: #### L 500.4050 #### [facility] [address] [place], [address] Bilirubin.direct [Mass/Vol] 3.02 mg/dL High 0.00-0.30 [facility] Comment on above: Performed By: #### L 500.4050 #### [facility] [address] [place], [address] Globulin (S) [Mass/Vol] 3.2 g/dL Normal 2.2-4.2 [facility] Comment on above: Performed By: #### L 500.4050 #### [facility] [address] [place], [address] T PROT 6.7 g/dL Normal 5.9-8.4 [facility] Comment on above: Performed By: #### L 500.4050 #### [facility] [address] [place], [address] MCV (mean corpuscular volume ) determinationOrdered By: Vargas Rea on 01-29-2025 MCV (RBC) [Entitic vol] 102.9 fL High 80-94 [facility] Mean corpuscular hemoglobin (MCH) determinationOrdered By: Vargas Rea on 01-29-2025 MCH (RBC) [Entitic mass] 32.8 pg High 27.0-32.0 [facility] Mean corpuscular hemoglobin concentration (MCHC) determinationOrdered By: Vargas Rea on 01-29-2025 MCHC (RBC) [Mass/Vol] 31.9 g/dL Low 32-[address] [facility] Mean platelet volume determi nationOrdered By: Vargas Rea on 01-29-2025 Platelet mean volume (Bld) [Entitic vol] 10.2 fL 6.2-12.0 [facility] Monocyte percentageOrdered B y: Vargas Rea on 01-29-2025 Monocytes/100 WBC (Bld) 8.2 % 0-10 [facility] Natriuretic peptide.B prohor justin N-Terminal [Mass/volume] in Serum or PlasmaOrdered By: Vargas Rea on 01-29-2025 Natriuretic peptide.B prohormone N-Terminal [Mass/Vol] 94363 pg/mL High <450 [facility] Comment on above: Heart Failure Unlike ly: < 300 pg/mLHeart Failure Likely< 50 Years: > 450 pg/mL50-75 Years: > 900 pg/mL>75 Years: > 1800 pg/mL Neutrophil percentageOrdered By: Vargas Rea on 01-29-2025 Neutrophils/100 WBC (Bld) 62.1 % 47-70 [facility] Nucleated red blood cell per centageOrdered By: Vargas Rea on 01-29-2025 Nucleated RBC/100 WBC (Bld) [Ratio] 0.7 % 0-5 [facility] Partial Thromboplast Timeon 01-29-2025 aPTT Coag (Bld) [Time] 32.5 s Normal 24.1-36.2 [facility] Comment on above: Order Comment: CHRISTOFER Link PREVIOUS SPECIMEN REJECTED DUE TO QNS. 01/29/25 0840 [place]. Performed By: #### L 300.4310, L300.3900 #### [facility] [address] [place], [place], [address] Platelet countOrdered By: Sam Rea on 01-29-2025 Platelets (Bld) [#/Vol] 368 10*3/uL 150-450 [facility] Potassium measurement (mass/ volume)Ordered By: Vargas Rea on 01-29-2025 Potassium (Unsp spec) [Mass/Vol] 4.4 mmol/L 3.3-5.1 [facility] Pro- Brain NATRIURETIC PEPTI Saroj 01-29-2025 Natriuretic peptide B (Bld) [Mass/Vol] 79000 pg/mL High <=450 [facility] Comment on above: Result Comment: Hear t Failure Unlikely: < 300 pg/mL Heart Failure Likely < 50 Years: > 450 pg/mL 50-75 Years: > 900 pg/mL >75 Years: > 1800 pg/mL Performed By: #### L 500.4050, L100.0100 #### [facility] [address] [place], [place], [address] Prothrombin Time w/INRon INR Coag (PPP) [Relative time] 1.5 {INR} Normal [facility] Comment on above: Order Comment: REDRA W. PREVIOUS SPECIMEN REJECTED DUE TO QNS. 01/29/25 0840 [place]. Performed By: #### L 300.4310, L300.3900 #### [facility] [address] [place], [address] PT Coag (PPP) [Time] 18.8 s High 11.7-14.9 [facility] Comment on above: Order Comment: REDRA W. PREVIOUS SPECIMEN REJECTED DUE TO QNS. 01/29/25 0840 [place]. Performed By: #### L 300.4310, L300.3900 #### [facility] [address] [place], [address] INR Normal [facility] Comment on above: Result Comment: This specimen has been REJECTED due to Laboratory criteria: Quanity Not Sufficient. GABY has been notified of need of recollection. 01/29/25 0839 [place] Performed By: #### L 300.3900 #### [facility] [address] [place], [address] PROTIME Normal 11.7-14.9 [facility] Comment on above: Result Comment: This specimen has been REJECTED due to Laboratory criteria: Quanity Not Sufficient. GABY has been notified of need of recollection. 01/29/25 0839 [place] Performed By: #### L 300.3900 #### [facility] [address] [place], [address] Prothrombin timeOrdered By: Vargas Rea on 01-29-2025 PT Coag (PPP) [Time] 18.8 s High 11.7-14.9 [facility] RBC Auto (Bld) [#/Vol]Ordere d By: Vargas Rea on 01-29-2025 RBC (Bld) [#/Vol] 4.08 10*6/uL Low 4.6-6.2 [facility] Serum creatinine measurement (mass/volume)Ordered By: Vargas Rea on 01-29-2025 Creatinine [Mass/Vol] 2.47 mg/dL High 0.70-1.[address] [facility] Comment on above: Icterus present, Res ults may be affected. Serum globulin measurementOr dered By: Vargas Rea on 01-29-2025 Globulin (S) [Mass/Vol] 3.2 g/dL 2.2-4.2 [facility] Serum glucose measurement (m ass/volume)Ordered By: Vargas Rea on 01-29-2025 Glucose [Mass/Vol] 130 mg/dL High 70-99 [facility] Serum or plasma alanine de paz otransferase (ALT) measurementOrdered By: Vargas Rea on 01-29-2025 ALT [Catalytic activity/Vol] 10 U/L <47 [facility] Serum or plasma albumin fidel urement (mass/volume)Ordered By: Vargas Rea on 01-29-2025 Albumin [Mass/Vol] 3.5 g/dL 3.5-5.0 [facility] Serum or plasma alkaline nick sphatase measurementOrdered By: Vargas Rea on 01-29-2025 ALP [Catalytic activity/Vol] 462 U/L High 40-129 [facility] Serum or plasma calcium fidel urement (mass/volume)Ordered By: Vargas Rea on 01-29-2025 Calcium [Mass/Vol] 9.1 mg/dL 7.6-11.0 [facility] Serum or plasma urea nitroge n measurement (mass/volume)Ordered By: Vargas Rea on 01-29-2025 Urea nitrogen [Mass/Vol] 36 mg/dL High 4-19 [facility] Sodium levelOrdered By: Tammi Rea on 01-29-2025 Sodium [Moles/Vol] 141 mmol/L 133-145 [facility] Total proteinOrdered By: Lucía Rea on 01-29-2025 Protein [Mass/Vol] 6.7 g/dL 5.9-8.4 [facility] Troponin T HS 2 HRon 025 Trop T High Sen 55 ng/L Invalid Interpretation Code <=22 [facility] Comment on above: Result Comment: Crit ical Result(s) Called to: Nathan EVANS (ER) by: Vianey??Results read back by same. Performed By: #### L 499.0042 #### [facility] [address] [place], [place], [address] Troponin T HS 4 HRon 025 Trop T High Sen 49 ng/L High <=22 [facility] Comment on above: Performed By: #### L 499.0043 #### [facility] [address] [place], [address] Troponin T.cardiac [Mass/vol ume] in Serum or Plasma by High sensitivity methodOrdered By: Vargas Rea on 01-29-2025 Troponin T.cardiac High sensitivity method [Mass/Vol] 49 ng/L High <22 [facility] Troponin T.cardiac High sensitivity method [Mass/Vol] 55 ng/L High <22 [facility] Comment on above: Critical Result(s) C alled to: Nathan EVANS (ER) by: Vianey Results read back by same. Troponin T.cardiac High sensitivity method [Mass/Vol] 53 ng/L High <22 [facility] Comment on above: Delta: 45 on 534Critical Result(s) Called at: by: Results read back by same.Critical Result(s) Called to: Driss EVANS (ER) by: Vianey Results read back by cassandra. White blood cell (WBC) count Ordered By: Vargas Rea on 01-29-2025 WBC (Bld) [#/Vol] 7.5 10*3/uL 4.4-11.0 [facility] CNDSon 01-21-2025 CNDS HNO ID: [id number] Author: MELISSA ORDAZ APRN.CNP Service: Cardiovascular Medicine Author Type: Nurse Practitioner Type: Discharge Summary Filed: 01/21/2025 12:42 Note Text: Attestation signed by Maged Correa MD at 01/21/2025 3:48 PM [facility] STAFF PHYSICIAN NOTE OF PERSONAL INVOLVEMENT IN CARE IMPRESSION: Patient is a 44 year-old man with a history of NICM c/b HFrEF (15%), LBBB, hypertension, hyperlipidemia, CKD, and cirrhosis who presents with decompensated heart failure. Patient Active Hospital Problem List: Acute on chronic HFrEF (heart failure with reduced ejection fraction) ([facility]) Date Noted: 10/21/2024 History of left bundle branch block (LBBB) Date Noted: 06/19/2024 Essential hypertension Date Noted: 06/08/2024 CKD (chronic kidney disease) Date Noted: 06/08/2024 Personal history of DVT (deep vein thrombosis) Date Noted: 01/20/2025 NICM (nonischemic cardiomyopathy) ([facility]) Date Noted: 01/21/2025 Scleral icterus Date Noted: [...] Status: Not on file Primary Service: A, Hvi Clinical Senior Validation Engineer/Pa Admission Diagnosis: Acute decompensated heart failure (HCC) [...] thrombosis) Date Noted: 01/20/2025 NICM (nonischemic cardiomyopathy) ([facility]) Date Noted: 01/21/2025 Scleral icterus Date Noted: [...] as he refuses medical therapy. PHYSICAL EXAM: 01/20/25204501/21/25 0215 01/21/25 0608 01/21/25 [...] Medication List (more content not included)... Normal [facility] ECHOon 01-21-2025 Echocardiography Echocardiography Report: Transthoracic Echo [facility] Bedside Date of service: 01/21/2025 9:06:51 AM Ordering physician: LA YUN Exam indication: Evaluation of known heart failure Symptom(s): Shortness of breath Technologist: Faye Saab Interpreting physician: Matthew Yang MD PATIENT: Name: CARLO MDEINA : 1980 Age: 44 years Gender: M [...] for comparison. (more content not included)... Normal [facility] NURSING PROGon 01-21-2025 NURSING PROG HNO ID: [id number] Author: TAQUERIA VELEZ RN Service: Nursing Author Type: Registered Nurse Type: Nursing Progress Note Filed: 01/21/2025 11:18 Note Text: Pt declined resuming Losartan. Pt states, I am fine with just taking the meds I take at home. I only came here for the defibrillator, not to take new meds. RN explained to pt EP recommendation is to optimize GDMT prior to considering ENGINE DYNAMOMETER TESTER-D placement. Pt is agreeable to IV diuretics, [...] ultrasound IV certified nurse come in. Melissa Ordaz APRN, OFFICE CORRESPONDENT notified. Normal [facility] NURSING PROG HNO ID: [id number] Author: YASMEEN MEJIA RN Service: Nursing Author [...] provided. Reach out to MD Cora Sánchez, ok to move 0600 IVP lasix to 0900 in order to check potassium when pt is agreeable Normal [facility] PT EDon 01-21-2025 PT ED HNO ID: [id number] Author: GABY GUIDRY [facility] Service: Pharmacy Author Type: Pharmacist Type: Patient [...] RECOMMENDATIONS (IF ANY): None SIGNATURE: Gaby Guidry [facility] PAGER: [phone] Normal [facility] Progress Noteson 01-21-2025 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 Interface Message Text Normal [employer] CBC panel Auto (Bld)on 01-20 Erythrocyte distribution width (RBC) [Ratio] 15.8 % High 11.5-15.0 [facility] Comment on above: Order Comment: Speci men Type: BLOOD SPECIMENOrdering Facility: [facility] Address: [address] [place] [address] Performed By: #### 5 8410-2 ####[facility] [id number] [place] [address] [place] Hematocrit (Bld) [Volume fraction] 39.5 % Normal 39.0-51.0 [facility] Comment on above: Order Comment: Speci men Type: BLOOD SPECIMENOrdering Facility: [facility] Address: [address] [place] [address] Performed By: #### 5 8410-2 ####[facility] [id number] [place] [address] [place] Hemoglobin (Bld) [Mass/Vol] 12.9 g/dL Low 13.0-17.0 [facility] Comment on above: Order Comment: Speci men Type: BLOOD SPECIMENOrdering Facility: [facility] Address: [address] [place] [address] Performed By: #### 5 8410-2 ####[facility] LABCLIA [id number] [place] [address] [place] MCH (RBC) [Entitic mass] 33.4 pg Normal 26.0-34.0 [facility] Comment on above: Order Comment: Speci men Type: BLOOD SPECIMENOrdering Facility: [facility] Address: [address] [place] [address] Performed By: #### 5 8410-2 ####[facility] LABCLIA [id number] [place] [address] [place] MCHC (RBC) [Mass/Vol] 32.7 g/dL Normal 30.5-36.0 [facility] Comment on above: Order Comment: Speci men Type: BLOOD SPECIMENOrdering Facility: [facility] Address: [address] [place] [address] Performed By: #### 5 8410-2 ####[facility] LABCLIA [id number] [place] [address] [place] MCV (RBC) [Entitic vol] 102.3 fL High 80.0-100.0 [facility] Comment on above: Order Comment: Speci men Type: BLOOD SPECIMENOrdering Facility: [facility] Address: [address] [place] [address] Performed By: #### 5 8410-2 ####[facility] LABCLIA [id number] [place] [address] [place] Nucleated RBC (Bld) [#/Vol] 0.02 10*3/uL High <0.01 [facility] Comment on above: Order Comment: Speci men Type: BLOOD SPECIMENOrdering Facility: [facility] Address: [address] [place] [address] Performed By: #### 5 8410-2 ####[facility] LABCLIA [id number] [address] [address] [place] Platelet mean volume (Bld) [Entitic vol] 10.4 fL Normal 9.0-12.7 [facility] Comment on above: Order Comment: Speci men Type: BLOOD SPECIMENOrdering Facility: [facility] Address: [address] [place] [address] Performed By: #### 5 8410-2 ####[facility] LABCLIA [id number] [place] [address] [place] Platelets (Bld) [#/Vol] 287 10*3/uL Normal 150-400 [facility] Comment on above: Order Comment: Speci men Type: BLOOD SPECIMENOrdering Facility: [facility] Address: [address] [place] [address] Performed By: #### 5 8410-2 ####[facility] LABIA [id number] [place] [address] [place] RBC (Bld) [#/Vol] 3.86 10*6/uL Low 4.20-6.00 [facility] Comment on above: Order Comment: Speci men Type: BLOOD SPECIMENOrdering Facility: [facility] Address: [address] [place] [address] Performed By: #### 5 8410-2 ####[facility] LABIA [id number] [place] [address] [place] WBC (Bld) [#/Vol] 6.85 10*3/uL Normal 3.70-11.00 [facility] Comment on above: Order Comment: Speci men Type: BLOOD SPECIMENOrdering Facility: [facility] Address: [address] [place] [address] Performed By: #### 5 8410-2 ####[facility] LABIA [id number] [place] [address] [place] CONSULTon 01-20-2025 CONSULT HNO ID: [id number] Author: ROOPA TAVERA DO Service: Cardiovascular Medicine Author Type: Fellow Type: Consults Filed: 01/20/2025 18:24 Note Text: Attestation signed by Roopa Tavera DO at 01/20/2025 6:24 PM [facility] STAFF PHYSICIAN NOTE OF PERSONAL INVOLVEMENT IN [...] follow up and relates challenges coming to [place] for visits. We discussed if his HF medications are maximized and his LVEF remains reduced (below 35%) when reassessed after three months then we would could proceed with an ICD. I explained the purpose of an ICD and explained the implant procedure, risks,benefits and limitations, longterm implications and follow up and addressed his questions. His recent ECG shows a NIVC with QRSd <150msec and would not be likely to benefit from a ENGINE DYNAMOMETER TESTER device, this would certainly need reassessed prior [...] [facility] CARDIOVASCULAR MEDICINE CONSULT NOTE (Template ID [id number]) Carlo Medina [id number] PRIMARY SERVICE: Cardiovascular Medicine - BASE WAD OPERATOR ADJUSTER/PA CONSULTING SERVICE: Cardiovascular Medicine: EP DATE OF ADMISSION: 01/19/2025 DATE OF CONSULT: 01/20/2025 REASON FOR CONSULT Consideration for ENGINE DYNAMOMETER TESTER-D implantation HISTORY OF PRESENT ILLNESS Carlo Medina [...] filling pressures - Has seen a general hydraulic corrugating machine operator at [facility], last visit 05/2024 and a HF Bun Panner (Dr. Astudillo - 07/2024) with some concern [...] 97 Temp (more content not included)... Normal [facility] Comprehensive metabolic 2000 panelon 01-20-2025 Albumin [Mass/Vol] 3.4 g/dL Low 3.9-4.9 [facility] Comment on above: Order Comment: Speci men Type: BLOOD SPECIMENOrdering Facility: [facility] Address: [address] [place] [address] Performed By: #### 2 4323-8, 2132-9, 3016-3, 39722-1, 2276-4, 10975-7 ####[facility] LABCLIA [id number] [address] [address] [place] ALP [Catalytic activity/Vol] 459 U/L High 38-113 [facility] Comment on above: Order Comment: Speci men Type: BLOOD SPECIMENOrdering Facility: [facility] Address: [address] [place] [address] Performed By: #### 2 4323-8, 2-9, 6-3, 77537-2, 6-4, 88083-0 ####[facility] LABCLIA [id number] [address] [address] [place] ALT [Catalytic activity/Vol] 23 U/L Normal 10-54 [facility] Comment on above: Order Comment: Speci men Type: BLOOD SPECIMENOrdering Facility: [facility] Address: [address] [place], [place] [address] Performed By: #### 2 4323-8, 2-9, 6-3, 94893-9, 2275-4, 08575-7 ####[facility] LABCLIA [id number] [address] [address] [place] Anion gap [Moles/Vol] 18 mmol/L High 8-15 [facility] Comment on above: Order Comment: Speci men Type: BLOOD SPECIMENOrdering Facility: [facility] Address: [address] [place], [place] [address] Performed By: #### 2 4323-8, 2-9, 6-3, 23550-0, 2275-4, 40187-4 ####[facility] LABCLIA [id number] [address] [address] [place] AST [Catalytic activity/Vol] 21 U/L Normal 14-40 [facility] Comment on above: Order Comment: Speci men Type: BLOOD SPECIMENOrdering Facility: [facility] Address: [address] [place], [place] [address] Performed By: #### 2 4323-8, 2-9, 6-3, 22735-5, 2275-4, 30318-7 ####[facility] LABCLIA [id number] [address] [address] [place] Bilirubin [Mass/Vol] 5.1 mg/dL High 0.2-1.3 [facility] Comment on above: Order Comment: Speci men Type: BLOOD SPECIMENOrdering Facility: [facility] Address: [address] [place], [place] [address] Performed By: #### 2 4323-8, 2-9, 3016-3, 63141-9, 6-4, 06142-6 ####[facility] LABCLIA [id number] [facility] [place] [id number] [place] Calcium [Mass/Vol] 9.4 mg/dL Normal 8.5-10.2 [facility] Comment on above: Order Comment: Speci men Type: BLOOD SPECIMENOrdering Facility: [facility] Address: [address] [place] [address] Performed By: #### 2 4323-8, 2131-9, 6-3, 08852-6, 2275-4, 91667-0 ####[facility] LABCLIA [id number] [facility] [place] [address] [place] Chloride [Moles/Vol] 101 mmol/L Normal 98-107 [facility] Comment on above: Order Comment: Speci men Type: BLOOD SPECIMENOrdering Facility: [facility] Address: [address] [place] [address] Performed By: #### 2 4323-8, 2-9, 6-3, 69806-1, 6-4, 24245-6 ####[facility] LABCLIA [id number] [facility] [place] [id number] [place] CO2 [Moles/Vol] 22 mmol/L Normal 22-30 [facility] Comment on above: Order Comment: Speci men Type: BLOOD SPECIMENOrdering Facility: [facility] Address: [address] [place], [place] [address] Performed By: #### 2 4323-8, 2-9, 3016-3, 38688-4, 6-4, 13026-8 ####[facility] LABCLIA [id number] [address] [address] [place] Creatinine [Mass/Vol] 2.46 mg/dL High 0.73-1.22 [facility] Comment on above: Order Comment: Sunni reynoso Type: BLOOD SPECIMENOrdering Facility: [facility] Address: [address] [place] [address] Performed By: #### 2 4323-8, 2132-9, 3016-3, 36916-3, 6-4, 53115-5 ####[facility] [id number] [place] [address] [place] eGFRcr SerPlBld CKD-EPI 2020 32 mL/min/1.73m??? Low >=60 [facility] Comment on above: Order Comment: Sunni reynoso Type: BLOOD SPECIMENOrdering Facility: [facility] Address: [address] [place] [address] Result Comment: Ella mated Glomerular Filtration Rate [...] actual GFR. Performed By: #### 2 4323-8, 2-9, 6-3, 34718-8, 6-4, 96533-0 ####[facility] [id number] [address] [address] [place] Glucose [Mass/Vol] 102 mg/dL High 74-99 [facility] Comment on above: Order Comment: Sunni reynoso Type: BLOOD SPECIMENOrdering Facility: [facility] Address: [address] [place] [address] Result Comment: The [place] [employer] (ADA) provides guidance for cutoff [...] Standards of Medical Care in Diabetes 2016, [place] [employer]. Diabetes Care. 2016.39(Suppl 1). Performed By: #### 2 4323-8, 2132-9, 3016-3, 42305-3, 6-4, 22922-9 ####[facility] LABIA [id number] [address] [address] [place] Potassium [Moles/Vol] 3.8 mmol/L Normal 3.7-5.1 [facility] Comment on above: Order Comment: Speci men Type: BLOOD SPECIMENOrdering Facility: [facility] Address: [address] [place] [address] Performed By: #### 2 4323-8, 2131-9, 6-3, 80607-5, 6-4, 13153-2 ####[facility] [id number] [place] [address] [place] Protein [Mass/Vol] 6.8 g/dL Normal 6.3-8.0 [facility] Comment on above: Order Comment: Speci men Type: BLOOD SPECIMENOrdering Facility: [facility] Address: [address] [place] [address] Performed By: #### 2 4323-8, 2-9, 3016-3, 84330-5, 6-4, 06282-3 ####[facility] [id number] [place] [id number] [place] Sodium [Moles/Vol] 141 mmol/L Normal 136-144 [facility] Comment on above: Order Comment: Speci men Type: BLOOD SPECIMENOrdering Facility: [facility] Address: [address] [place], [place] [address] Performed By: #### 2 4323-8, 2-9, 6-3, 30487-6, 2275-4, 28687-2 ####[facility] LABCLIA [id number] [place] [id number] [place] Urea nitrogen [Mass/Vol] 41 mg/dL High 03-23 [facility] Comment on above: Order Comment: Speci men Type: BLOOD SPECIMENOrdering Facility: [facility] Address: [address] [place] [address] Performed By: #### 2 4323-8, 2131-9, 6-3, 11319-6, 2275-4, 88183-1 ####[facility] LABCLIA [id number] [place] [id number] [place] Ferritin SerPl-mCncon 2024 Ferritin [Mass/Vol] 167.0 ng/mL Normal 30.3-565.7 [facility] Comment on above: Order Comment: Speci men Type: BLOOD SPECIMENOrdering Facility: [facility] Address: [address] [place] [address] Performed By: #### 2 4323-8, 2131-9, 6-3, 27138-8, 2275-4, 06194-7 ####[facility] LABCLIA [id number] [place] [id number] [place] Gas and Carbon monoxide pane l (BldV)on 01-20-2025 Base excess Calc (BldV) [Moles/Vol] 0 mmol/L Normal 0-2 [facility] Comment on above: Order Comment: Speci men Type: BLOOD SPECIMEN [facility] Address: [address] [place], [place] [address] [address] Performed By: #### L [id number] #### [facility] CLIA [id number] [address] [place] [address] [place] Body temperature 98.06 [degF] Normal [facility] Comment on above: Order Comment: Speci men Type: BLOOD SPECIMEN [facility] Address: [address] [place] [address] Performed By: #### L [id number] #### [facility] CLIA [id number] [address] [place] [address] [place] Calcium.ionized (Bld) [Mass/Vol] 1.13 mmol/L Normal 1.08-1.30 [facility] Comment on above: Order Comment: Speci men Type: BLOOD SPECIMEN [facility] Address: [address] [place] [address] Performed By: #### L [id number] #### [facility] CLIA [id number] [address] [place] [address] [place] Calcium.ionized adjusted to pH 7.4 (BldA) [Moles/Vol] 1.13 mmol/L Normal 1.08-1.30 [facility] Comment on above: Order Comment: Speci men Type: BLOOD SPECIMEN [facility] Address: [address] [place] [address] Performed By: #### L [id number] #### [facility] CLIA [id number] [address] [place] [address] [place] Carboxyhemoglobin (BldV) [Mass fraction] 0.4 % Normal 0.0-2.0 [facility] Comment on above: Order Comment: Speci men Type: BLOOD SPECIMEN [facility] Address: [address] [place] [address] Result Comment: Carb oxyhemoglobin Reference Range for Smokers: 2.0-8.0% Performed By: #### L [id number] #### [facility] CLIA [id number] [address] [place] [address] [place] CO2 (BldV) [Partial pressure] 39 mm[Hg] Low 42-55 [facility] Comment on above: Order Comment: Speci men Type: BLOOD SPECIMEN [facility] Address: [address] [place] [address] Performed By: #### L [id number] #### [facility] CLIA [id number] [address] [place] [address] [place] CO2 adjusted to patient's actual temperature (BldV) [Partial pressure] 38 mmHg Low 42-55 [facility] Comment on above: Order Comment: Speci men Type: BLOOD SPECIMEN [facility] Address: [address] [place] [address] Performed By: #### L [id number] #### [facility] CLIA [id number] [address] [place] [address] [place] Glucose [Mass/Vol] 110 mg/dL High 60-105 [facility] Comment on above: Order Comment: Speci men Type: BLOOD SPECIMEN [facility] Address: [address] [place] [address] Performed By: #### L [id number] #### [facility] CLIA [id number] [address] [place] [address] [place] HCO3 (Bld) [Moles/Vol] 24 mmol/L Normal 24-28 [facility] Comment on above: Order Comment: Speci men Type: BLOOD SPECIMEN [facility] Address: [address] [place] [address] Performed By: #### L [id number] #### [facility] CLIA [id number] [address] [place] [address] [place] Hematocrit (Bld) [Volume fraction] 41.6 % Normal 39.0-51.0 [facility] Comment on above: Order Comment: Speci men Type: BLOOD SPECIMEN [facility] Address: [address] [place] [address] Performed By: #### L [id number] #### [facility] CLIA [id number] [address] [place] [address] [place] Hemoglobin (Bld) [Mass/Vol] 13.5 g/dL Normal 13.0-17.0 [facility] Comment on above: Order Comment: Speci men Type: BLOOD SPECIMEN [facility] Address: [address] [place] [address] Performed By: #### L [id number] #### [facility] CLIA [id number] [address] [place] [address] [place] Lactate [Moles/Vol] 3.3 mmol/L High 0.5-2.2 [facility] Comment on above: Order Comment: Speci men Type: BLOOD SPECIMEN [facility] Address: [address] [place] [address] Performed By: #### L [id number] #### [facility] CLIA [id number] [address] [place] [address] [place] Methemoglobin (Bld) [Mass fraction] 0.9 % Normal 0.0-1.5 [facility] Comment on above: Order Comment: Speci men Type: BLOOD SPECIMEN [facility] Address: [address] [place] [address] Performed By: #### L [id number] #### [facility] CLIA [id number] [address] [place] [address] [place] O2 THERAPY RA=Room Air Normal [facility] Comment on above: Order Comment: Speci men Type: BLOOD SPECIMEN [facility] Address: [address] [place], [place] [address] Performed By: #### L [id number] #### [facility] CLIA [id number] [address] [place], [place] [address] [place] Oxygen (BldV) [Partial pressure] 20 mm[Hg] Low 35-45 [facility] Comment on above: Order Comment: Speci men Type: BLOOD SPECIMEN [facility] Address: [address] [place], [place] [address] Performed By: #### L [id number] #### [facility] CLIA [id number] [address] [place], [place] [address] [place] Oxygen adjusted to patient's actual temperature (BldV) [Partial pressure] 20 mmHg Low 35-45 [facility] Comment on above: Order Comment: Speci men Type: BLOOD SPECIMEN [facility] Address: [address] [place], [place] [address] Performed By: #### L [id number] #### [facility] CLIA [id number] [address] [place], [place] [address] [place] Oxygen saturation in Venous blood 16 % Low 60-85 [facility] Comment on above: Order Comment: Speci men Type: BLOOD SPECIMEN [facility] Address: [address] [place] [address] Performed By: #### L [id number] #### [facility] CLIA [id number] [address] [place], [place] [address] [place] Oxyhemoglobin (BldV) [Mass fraction] 15 % Low 60-85 [facility] Comment on above: Order Comment: Speci men Type: BLOOD SPECIMEN [facility] Address: [address] [place], [place] [address] Performed By: #### L [id number] #### [facility] CLIA [id number] [address] [place], [place] [address] [place] pH (BldV) 7.41 [pH] Normal 7.32-7.42 [facility] Comment on above: Order Comment: Speci men Type: BLOOD SPECIMEN [facility] Address: [address] [place], [place] [address] Performed By: #### L [id number] #### [facility] CLIA [id number] [address] [place], [place] [address] [place] pH adjusted to patient's actual temperature (BldV) 7.42 Normal 7.32-7.42 [facility] Comment on above: Order Comment: Speci men Type: BLOOD SPECIMEN [facility] Address: [address] [place] [address] Performed By: #### L [id number] #### [facility] CLIA [id number] [address] [place] [address] [place] Potassium [Moles/Vol] 3.7 mmol/L Normal 3.5-5.0 [facility] Comment on above: Order Comment: Speci men Type: BLOOD SPECIMEN [facility] Address: [address] [place] [address] Performed By: #### L [id number] #### [facility] [facility] CLIA [id number] [address] [place] [address] [place] Sodium [Moles/Vol] 141 mmol/L Normal 136-144 [facility] Comment on above: Order Comment: Speci men Type: BLOOD SPECIMEN Ordering Facility: [facility] Address: [address] [place] [address] Performed By: #### L [id number] #### [facility] CLIA [id number] [address] [place] [address] [place] Iron and Iron binding capaci ty panelon 01-20-2025 Iron [Mass/Vol] 36 ug/dL Low 41-186 [facility] Comment on above: Order Comment: Speci men Type: BLOOD SPECIMENOrdering Facility: [facility] Address: [address] [place] [address] Performed By: #### 2 4323-8, 2132-9, 3016-3, 54719-8, 2276-4, 77066-8 ####[facility] [id number] [place] [address] [place] Iron binding capacity [Mass/Vol] 311 ug/dL Normal 232-386 [facility] Comment on above: Order Comment: Speci men Type: BLOOD SPECIMENOrdering Facility: [facility] Address: [address] [place] [address] Performed By: #### 2 4323-8, 2131-9, 3015-3, 02169-1, 2275-4, 69582-7 ####[facility] [id number] [place] [address] [place] Iron/TIBC [Molar ratio] 11.6 % Low 15.0-57.0 [facility] Comment on above: Order Comment: Speci men Type: BLOOD SPECIMENOrdering Facility: [facility] Address: [address] [place] [address] Performed By: #### 2 4323-8, 9, 3, 12997-6, 4, 55748-8 ####[facility] [id number] [place] [address] [place] Magnesium SerPl-ncon 01-20 Magnesium [Mass/Vol] 2.2 mg/dL Normal 1.7-2.3 [facility] Comment on above: Order Comment: Speci men Type: BLOOD SPECIMEN Ordering Facility: [facility] Address: [address] [place] [address] Performed By: #### L [id number] #### [facility] CLIA [id number] [address] [place] [address] [place] Magnesium [Mass/Vol] 2.3 mg/dL Normal 1.7-2.3 [facility] Comment on above: Order Comment: Speci men Type: BLOOD SPECIMENOrdering Facility: [facility] Address: [address] [place] [address] Performed By: #### 2 4323-8, 9, 3015-3, 67388-5, 2275-4, 00334-8 ####[facility] [id number] [place] [address] [place] NURSING PROGon 01-20-2025 NURSING PROG HNO ID: [id number] Author: MARIANA POTTER RN Service: ? Author [...] declining a new one right now. Normal [facility] POTASSIUMon 01-20-2025 Potassium [Moles/Vol] 3.3 mmol/L Low 3.7-5.1 [facility] Comment on above: Order Comment: Speci men Type: BLOOD SPECIMEN Ordering Facility: [facility] Address: [address] [place] [address] Performed By: #### L [id number] #### [facility] CLIA [id number] [address] [place] [address] [place] Potassium [Moles/Vol] 3.5 mmol/L Low 3.7-5.1 [facility] Comment on above: Order Comment: Speci men Type: BLOOD SPECIMEN Ordering Facility: [facility] Address: [address] [place] [address] Performed By: #### L [id number] #### [facility] CLIA [id number] [address] [place] [address] OF [facility] PT panel Coag (PPP)on 2024 INR Coag (PPP) [Relative time] 1.5 {INR} High 0.9-1.3 [facility] Comment on above: Order Comment: Specdaniella reynoso Type: BLOOD SPECIMENOrdering Facility: [facility] Address: [address] [place] [address] Result Comment: Gayla min K Antagonist (VKA) Therapeutic Range: INR 2 to 3 (Target INR of 2.5) Note: For patients treated with VKA drugs, such as warfarin, the [employer] 2012 Guideline recommends [...] Chest 2012, 141:7S-47S Evelyn RA, et al. [facility] 2017, 70: 252-289 Performed By: #### 3 4528-0, 92416-4 ####[facility] [id number] [place] [id number] [place] PT Coag (PPP) [Time] 15.7 s High 9.7-13.0 [facility] Comment on above: Order Comment: Sunni reynoso Type: BLOOD SPECIMENOrdering Facility: [facility] Address: [address] [place] [address] Performed By: #### 3 4528-0, 07387-4 ####[facility] [id number] [address] [place] SEPSIS LACTATEon 01-20-2025 Lactate [Moles/Vol] 2.5 mmol/L High <=2.0 [facility] Comment on above: Order Comment: Speci men Type: BLOOD SPECIMEN [facility]ing Facility: [facility] Address: [address] [place] [address] Performed By: #### L [id number] #### [facility] CLIA [id number] [address] [place] [address] [place] TSH SerPl-aCncon 01-20-2025 TSH Qn 3.480 m[IU]/L Normal 0.270-4.200 [facility] Comment on above: Order Comment: Speci men Type: BLOOD SPECIMENOrdering Facility: [facility] Address: [address] [place] [address] Performed By: #### 2 4323-8, 2-9, 6-3, 68920-5, 2275-4, 11897-8 ####[facility] [id number] [place] [id number] [place] Vit B12 SerPl-mCncon 025 Cobalamin (Vitamin B12) [Mass/Vol] 1829 pg/mL High 232-1245 [facility] Comment on above: Order Comment: Speci men Type: BLOOD SPECIMENOrdering Facility: [facility] Address: [address] [place] [address] Performed By: #### 2 4323-8, 2-9, 6-3, 27444-5, 6-4, 01012-4 ####[facility] [id number] [place] [address] [place] aPTT PPPon 01-20-2025 aPTT Coag (PPP) [Time] 29.7 s Normal 23.0-32.4 [facility] Comment on above: Order Comment: Speci men Type: BLOOD SPECIMENOrdering Facility: [facility] Address: [address] [place], [place] [address] Performed By: #### 3 4528-0, 97905-5 ####[facility] [id number] [place] [address] [place] CBC W Auto Differential pane l (Bld)on 01-19-2025 Basophils (Bld) [#/Vol] 0.03 10*3/uL Normal <0.11 [facility] Comment on above: Order Comment: Speci men Type: BLOOD SPECIMEN Ordering Facility: [facility] Address: [address] [place] [address] Performed By: #### L [id number] #### [facility] CLIA [id number] [address] [place] [address] [place] Basophils/100 WBC (Bld) 0.4 % Normal [facility] Comment on above: Order Comment: Speci men Type: BLOOD SPECIMEN Ordering Facility: [facility] Address: [address] [place] [address] Performed By: #### L [id number] #### [facility] CLIA [id number] [address] [place] [address] [place] Differential cell count method Nom (Bld) Auto Normal [facility] Comment on above: Order Comment: Speci men Type: BLOOD SPECIMEN Ordering Facility: [facility] Address: [address] [place] [address] Performed By: #### L [id number] #### [facility] CLIA [id number] [address] [place] [address] [place] Eosinophils (Bld) [#/Vol] 10*3/uL Normal <0.46 [facility] Comment on above: Order Comment: Speci men Type: BLOOD SPECIMEN Ordering Facility: [facility] Address: [address] [place] [address] Performed By: #### L [id number] #### [facility] CLIA [id number] [address] [place] [address] [place] Eosinophils/100 WBC (Bld) 0.1 % Normal [facility] Comment on above: Order Comment: Speci men Type: BLOOD SPECIMEN Ordering Facility: [facility] Address: [address] [place] [address] Performed By: #### L [id number] #### [facility] CLIA [id number] [address] [place] [address] [place] Erythrocyte distribution width (RBC) [Ratio] 16.1 % High 11.5-15.0 [facility] Comment on above: Order Comment: Speci men Type: BLOOD SPECIMEN Ordering Facility: [facility] Address: [address] [place] [address] Performed By: #### L [id number] #### [facility] CLIA [id number] [address] [place] [address] [place] Hematocrit (Bld) [Volume fraction] 40.3 % Normal 39.0-51.0 [facility] Comment on above: Order Comment: Speci men Type: BLOOD SPECIMEN Ordering Facility: [facility] Address: [address] [place] [address] Performed By: #### L [id number] #### [facility] CLIA [id number] [address] [place] [address] [place] Hemoglobin (Bld) [Mass/Vol] 12.9 g/dL Low 13.0-17.0 [facility] Comment on above: Order Comment: Speci men Type: BLOOD SPECIMEN Ordering Facility: [facility] Address: [address] [place] [address] Performed By: #### L [id number] #### [facility] CLIA [id number] [address] [place] [address] [place] Immature granulocytes (Bld) [#/Vol] 10*3/uL Normal <0.10 [facility] Comment on above: Order Comment: Speci men Type: BLOOD SPECIMEN Ordering Facility: [facility] Address: [address] [place] [address] Performed By: #### L [id number] #### [facility] CLIA [id number] [address] [place] [address] [place] Immature granulocytes/100 WBC (Bld) 0.1 % Normal [facility] Comment on above: Order Comment: Speci men Type: BLOOD SPECIMEN Ordering Facility: [facility] Address: [address] [place] [address] Performed By: #### L [id number] #### [facility] CLIA [id number] [address] [place] [address] [place] Lymphocytes (Bld) [#/Vol] 2.06 10*3/uL Normal 1.00-4.00 [facility] Comment on above: Order Comment: Speci men Type: BLOOD SPECIMEN Ordering Facility: [facility] Address: [address] [place] [address] Performed By: #### L [id number] #### [facility] CLIA [id number] [address] [place] [address] [place] Lymphocytes/100 WBC (Bld) 26.0 % Normal [facility] Comment on above: Order Comment: Speci men Type: BLOOD SPECIMEN Ordering Facility: [facility] Address: [address] [place] [address] Performed By: #### L [id number] #### [facility] CLIA [id number] [address] [place] [address] [place] MCH (RBC) [Entitic mass] 33.0 pg Normal 26.0-34.0 [facility] Comment on above: Order Comment: Speci men Type: BLOOD SPECIMEN Ordering Facility: [facility] Address: [address] [place] [address] Performed By: #### L [id number] #### [facility] CLIA [id number] [address] [place] [address] [place] MCHC (RBC) [Mass/Vol] 32.0 g/dL Normal 30.5-36.0 [facility] Comment on above: Order Comment: Speci men Type: BLOOD SPECIMEN Ordering Facility: [facility] Address: [address] [place] [address] Performed By: #### L [id number] #### [facility] CLIA [id number] [address] [place] [address] [place] MCV (RBC) [Entitic vol] 103.1 fL High 80.0-100.0 [facility] Comment on above: Order Comment: Speci men Type: BLOOD SPECIMEN Ordering Facility: [facility] Address: [address] [place] [address] Performed By: #### L [id number] #### [facility] CLIA [id number] [address] [place] [address] [place] Monocytes (Bld) [#/Vol] 0.68 10*3/uL Normal <0.87 [facility] Comment on above: Order Comment: Speci men Type: BLOOD SPECIMEN Ordering Facility: [facility] Address: [address] [place] [address] Performed By: #### L [id number] #### [facility] CLIA [id number] [address] [place] [address] [place] Monocytes/100 WBC (Bld) 8.6 % Normal [facility] Comment on above: Order Comment: Speci men Type: BLOOD SPECIMEN Ordering Facility: [facility] Address: [address] [place] [address] Performed By: #### L [id number] #### [facility] CLIA [id number] [address] [place] [address] [place] Neutrophils (Bld) [#/Vol] 5.13 10*3/uL Normal 1.45-7.50 [facility] Comment on above: Order Comment: Speci men Type: BLOOD SPECIMEN Ordering Facility: [facility] Address: [address] [place] [address] Performed By: #### L [id number] #### [facility] CLIA [id number] [address] [place] [address] [place] Neutrophils/100 WBC (Bld) 64.8 % Normal [facility] Comment on above: Order Comment: Speci men Type: BLOOD SPECIMEN Ordering Facility: [facility] Address: [address] [place] [address] Performed By: #### L [id number] #### [facility] CLIA [id number] [address] [place] [address] [place] Nucleated RBC (Bld) [#/Vol] 0.03 10*3/uL High <0.01 [facility] Comment on above: Order Comment: Speci men Type: BLOOD SPECIMEN Ordering Facility: [facility] Address: [address] [place] [address] Performed By: #### L [id number] #### [facility] CLIA [id number] [address] [place] [address] [place] Nucleated RBC/100 WBC (Bld) [Ratio] 0.4 /100 WBC Normal [facility] Comment on above: Order Comment: Speci men Type: BLOOD SPECIMEN Ordering Facility: [facility] Address: [address] [place] [address] Performed By: #### L [id number] #### [facility] CLIA [id number] [address] [place] [address] [place] Platelet mean volume (Bld) [Entitic vol] 10.5 fL Normal 9.0-12.7 [facility] Comment on above: Order Comment: Speci men Type: BLOOD SPECIMEN Ordering Facility: [facility] Address: [address] [place] [address] Performed By: #### L [id number] #### [facility] CLIA [id number] [address] [place] [address] [place] Platelets (Bld) [#/Vol] 272 10*3/uL Normal 150-400 [facility] Comment on above: Order Comment: Speci men Type: BLOOD SPECIMEN Ordering Facility: [facility] Address: [address] [place] [address] Performed By: #### L [id number] #### [facility] CLIA [id number] [address] [place] [address] [place] RBC (Bld) [#/Vol] 3.91 10*6/uL Low 4.20-6.00 [facility] Comment on above: Order Comment: Speci men Type: BLOOD SPECIMEN Ordering Facility: [facility] Address: [address] [place] [address] Performed By: #### L [id number] #### [facility] CLIA [id number] [address] [place] [address] [place] WBC (Bld) [#/Vol] 7.92 10*3/uL Normal 3.70-11.00 [facility] Comment on above: Order Comment: Speci men Type: BLOOD SPECIMEN Ordering Facility: [facility] Address: [address] [place] [address] Performed By: #### L [id number] #### [facility] CLIA [id number] [address] [place] [address] [place] Comprehensive metabolic 2000 panelon 01-19-2025 Albumin [Mass/Vol] 3.7 g/dL Low 3.9-4.9 [facility] Comment on above: Order Comment: Speci men Type: BLOOD SPECIMENOrdering Facility: [facility] Address: [address] [place] [address] Performed By: #### 3 3762-6, 68134-9, 23498-2, [id number] ####[facility] [id number] [place] [address] [place] ALP [Catalytic activity/Vol] 515 U/L High 38-113 [facility] Comment on above: Order Comment: Speci men Type: BLOOD SPECIMENOrdering Facility: [facility] Address: [address] [place] [address] Performed By: #### 3 3762-6, 58773-4, 37122-2, [id number] ####[facility] [id number] [place] [id number] [place] ALT [Catalytic activity/Vol] 23 U/L Normal 10-54 [facility] Comment on above: Order Comment: Speci men Type: BLOOD SPECIMENOrdering Facility: [facility] Address: [address] [place] [address] Performed By: #### 3 3762-6, , 15599-0, [id number] ####[facility] [id number] [place] [address] [place] Anion gap [Moles/Vol] 18 mmol/L High 8-15 [facility] Comment on above: Order Comment: Speci men Type: BLOOD SPECIMENOrdering Facility: [facility] Address: [address] [place] [address] Performed By: #### 3 3762-6, , 65188-7, [id number] ####[facility] [id number] [address] [address] [place] AST [Catalytic activity/Vol] 23 U/L Normal 14-40 [facility] Comment on above: Order Comment: Speci men Type: BLOOD SPECIMENOrdering Facility: [facility] Address: [address] [place], [place] [address] Performed By: #### 3 3762-6, 39082-7, 28835-2, [id number] ####[facility] [id number] [address] [place] [address] [place] Bilirubin [Mass/Vol] 5.6 mg/dL High 0.2-1.3 [facility] Comment on above: Order Comment: Speci men Type: BLOOD SPECIMENOrdering Facility: [facility] Address: [address] [place] [address] Performed By: #### 3 3762-6, , 55631-3, [id number] ####[facility] [id number] [place] [facility] [address] [address] [place] Calcium [Mass/Vol] 9.2 mg/dL Normal 8.5-10.2 [facility] Comment on above: Order Comment: Speci men Type: BLOOD SPECIMENOrdering Facility: [facility] Address: [address] [place] [address] Performed By: #### 3 3762-6, , , [id number] ####[facility] [id number] [facility] [place] [id number] [place] Chloride [Moles/Vol] 103 mmol/L Normal 98-107 [facility] Comment on above: Order Comment: Speci men Type: BLOOD SPECIMENOrdering Facility: [facility] Address: [address] [place] [address] Performed By: #### 3 3762-6, , , [id number] ####[facility] [id number] [facility] [address] [address] [place] CO2 [Moles/Vol] 20 mmol/L Low 22-30 [facility] Comment on above: Order Comment: Speci men Type: BLOOD SPECIMENOrdering Facility: [facility] Address: [address] [place] [address] Performed By: #### 3 3762-6, , , [id number] ####[facility] [id number] [facility] [facility] [address] [place] [address] [place] Creatinine [Mass/Vol] 2.27 mg/dL High 0.73-1.22 [facility] Comment on above: Order Comment: Sunni reynoso Type: BLOOD SPECIMENOrdering Facility: [facility] Address: [address] [place] [address] Performed By: #### 3 3762-6, 54067-2, 67089-0, [id number] ####[facility] [id number] [address] [address] [place] eGFRcr SerPlBld CKD-EPI 2020 35 mL/min/1.73m??? Low >=60 [facility] Comment on above: Order Comment: Sunni reynoso Type: BLOOD SPECIMENOrdering Facility: [facility] Address: [address] [place] [address] Result Comment: Ella mated Glomerular Filtration Rate [...] actual GFR. Performed By: #### 3 3762-6, 00256-4, 96436-3, [id number] ####[facility] [id number] [address] [address] [place] Glucose [Mass/Vol] 119 mg/dL High 74-99 [facility] Comment on above: Order Comment: Sunni reynoso Type: BLOOD SPECIMENOrdering Facility: [facility] Address: [address] [place] [address] Result Comment: The [place] [employer] (ADA) provides guidance for cutoff [...] Standards of Medical Care in Diabetes 2016, [place] [employer]. Diabetes Care. 2016.39(Suppl 1). Performed By: #### 3 3762-6, , 05220-0, [id number] ####[facility] [id number] [facility] [address] [place] [address] [place] Potassium [Moles/Vol] 3.5 mmol/L Low 3.7-5.1 [facility] Comment on above: Order Comment: Speci men Type: BLOOD SPECIMENOrdering Facility: [facility] Address: [address] [place], [place] [address] Performed By: #### 3 3762-6, , , [id number] ####[facility] [id number] [address] [place] [address] [place] Protein [Mass/Vol] 7.4 g/dL Normal 6.3-8.0 [facility] Comment on above: Order Comment: Kimi angeles Type: BLOOD SPECIMENOrdering Facility: [facility] Address: [address] [place], [place] [address] Performed By: #### 3 3762-6, , , [id number] ####[facility]IA [id number] [address] [address] [place] Sodium [Moles/Vol] 141 mmol/L Normal 136-144 [facility] Comment on above: Order Comment: Speci men Type: BLOOD SPECIMENOrdering Facility: [facility] Address: [address] [place] [address] Performed By: #### 3 3762-6, , , [id number] ####[facility] [id number] [facility] [address] [place] [address] [place] Urea nitrogen [Mass/Vol] 39 mg/dL High 9-24 [facility] Comment on above: Order Comment: Speci men Type: BLOOD SPECIMENOrdering Facility: [facility] Address: [address] [place] [address] Performed By: #### 3 3762-6, 51825-3, 53407-7, [id number] ####[facility] [id number] [place] [address] [place] ECG COMPLETEon 01-19-2025 ECG COMPLETE Ventricular Rate : 107 BPM Atrial Rate : 107 BPM P-R Interval : 138 ms QRS Duration : 142 ms Q-T Interval : 392 ms QTC Calculation(Bazett) : 523 ms Calculated P Cylinder : 49 degrees Calculated R Cylinder : 173 degrees Calculated T Cylinder : -4 degrees SINUS TACHYCARDIA WITH PREMATURE ATRIAL COMPLEXES NONSPECIFIC INTRAVENTRICULAR BLOCK POSSIBLE LATERAL MYOCARDIAL INFARCTION , AGE UNDETERMINED ABNORMAL ECG Confirmed by MD CAMARGO LUCY ([id number]), editorial writer MANUELA JEFFERSON ([id number]) on 02/04/2025 10:50:23 PM NAME : CARLO MEDINA PID : [id number] : 1980 Gender : Male Race : ORD : [id number] Procedure Date : Jan 19 2025 15:33:31 Edit Date : Feb 04 2025 22:50:26 Diagnosis: SINUS TACHYCARDIA WITH PREMATURE ATRIAL COMPLEXES NONSPECIFIC INTRAVENTRICULAR BLOCK POSSIBLE LATERAL MYOCARDIAL INFARCTION , AGE UNDETERMINED ABNORMAL ECG Confirmed by MD CAMARGO LUCY ([id number]), editorial writer MANUELA JEFFERSON ([id number]) on 02/04/2025 10:50:23 PM Test Reason : Location : 2 : [place] [address]- Overread By : MD CAMARGO LUCY Edited By : MANUELA JEFFERSON Referred By : , Acquired by : , [facility] ED NOTEon 01-19-2025 ED NOTE HNO ID: [id number] Author: FELIPE MONTAGUE CT Service: Emergency Medicine 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 Normal [facility] ED PROV NOTEon 01-19-2025 ED PROV NOTE HNO ID: [id number] Author: LA YUN MD Service: Emergency Medicine [...] All othe (more content not included)... Normal [facility] [place] ED Triage Noteon 01-19-2025 ED Triage Note HNO ID: [id number] Author: DALI CAMARGO MD Service: Emergency Medicine [...] W INTERPRETATION SIGNATURE: Dali Camargo MD Normal [facility] HIGH SENSITIVITY TROPONIN T (INITIAL)on 01-19-2025 Troponin T.cardiac High sensitivity method [Mass/Vol] 52 ng/L High <12 [facility] Comment on above: Order Comment: Speci men Type: BLOOD SPECIMENOrdering Facility: [facility] Address: [address] [place] [address] Performed By: #### 3 3762-6, 76690-4, 30561-4, [id number] ####[facility] [id number] [place] [address] [place] HIGH SENSITIVITY TROPONIN T (SECOND)on 01-19-2025 Troponin T.cardiac High sensitivity method [Mass/Vol] 50 ng/L High <12 [facility] Comment on above: Order Comment: Sunni reynoso Type: BLOOD SPECIMEN [facility] Address: [address] [place] [address] Performed By: #### L [id number] #### [facility] CLIA [id number] [address] [place] [address] [place] HIGH SENSITIVITY TROPONIN T (THIRD) 3 HRS AFTER INITIALon 01-19-2025 Troponin T.cardiac High sensitivity method [Mass/Vol] 52 ng/L High <12 [facility] Comment on above: Order Comment: Sunni reynoso Type: BLOOD SPECIMEN [facility] Address: [address] [place] [address] Performed By: #### L [id number] #### [facility] CLIA [id number] [address] [place] [address] [place] HISTORY PHYSICALon HISTORY PHYSICAL HNO ID: [id number] Author: MAGED CORREA MD Service: Cardiovascular Medicine Author Type: Physician Type: H&P Filed: 01/20/2025 13:26 Note Text: [facility] CARDIOVASCULAR MEDICINE HISTORY AND PHYSICAL NAME:Carlo Medina PRIMARY 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 Normal [facility] Magnesium SerPl-mCncon 01-19 Magnesium [Mass/Vol] 2.3 mg/dL Normal 1.7-2.3 [facility] Comment on above: Order Comment: Sunni reynoso Type: BLOOD SPECIMENOrdering Facility: [facility] Address: [address] [place] [address] Performed By: #### 3 3762-6, 94949-1, 07350-0, [id number] ####[facility] LABIA [id number] [place] [address] [place] NT-proBNP [facility]-ncon 01-19 Natriuretic peptide.B prohormone N-Terminal [Mass/Vol] 21200 pg/mL High <125 [facility] Comment on above: Order Comment: Sunni reynoso Type: BLOOD SPECIMENOrdering Facility: [facility] Address: [address] [place] [address] Performed By: #### 3 3762-6, 92264-0, 34706-9, [id number] ####[facility] LABIA [id number] [place] [address] [place] NURSING PROGon 01-19-2025 NURSING PROG HNO ID: [id number] Author: MARIANA POTTER RN Service: ? Author Type: Registered Nurse Type: Nursing Progress Note Filed: 01/19/2025 22:50 Note Text: 2114: [facility] ED. Sepsis alert popped up on EHR. RN paged primary to notify. Awaiting orders. Normal [facility] PT panel Coag (PPP)on 2024 INR Coag (PPP) [Relative time] 1.5 {INR} High 0.9-1.3 [facility] Comment on above: Order Comment: Sunni reynoso Type: BLOOD SPECIMEN [facility] Address: [address] [place] [address] Result Comment: Gayla min K Antagonist (VKA) Therapeutic Range: INR 2 to 3 (Target INR of 2.5) Note: For patients treated with VKA drugs, such as warfarin, the [employer] 2012 Guideline recommends [...] Chest 2012, 141:7S-47S Evelyn RA, et al. JACC 2017, 70: 252-289 Performed By: #### L [id number] #### [facility] CLIA [id number] [address] [place] [address] [place] PT Coag (PPP) [Time] 15.4 s High 9.7-13.0 [facility] Comment on above: Order Comment: Sunni reynoso Type: BLOOD SPECIMEN [facility] Address: [address] [place] [address] Performed By: #### L [id number] #### [facility] CLIA [id number] [address] [place] [address] [place] US DVT LOWER BILon US DVT LOWER EVANS * * *Final Report* * * DATE OF EXAM: Jan 19 2025 5:37PM MEU 1005 - US DVT LOWER EVANS / PROCEDURE REASON: Leg [...] of the distal left common femoral vein. Paraprofessional Aide: JOSE Transcribe Date/Time: Jan 19 2025 6:16P Dictated by : SIMÓN BENJAMIN MD This examination was interpreted and the report reviewed and electronically signed by: VAL BROTHERS MD on Jan 19 2025 6:19PM EST [id number] N Normal [facility] XR CHEST 1V FRONTAL PORTon 0 01-19-2025 [...] acute radiographic abnormality. Stable enlarged cardiac silhouette. Paraprofessional Aide: PSCB Transcribe Date/Time: Jan 19 2025 4:11P Dictated by : SIMÓN BENJAMIN MD This examination was interpreted and the report reviewed and electronically signed by: REBECCA GUPTA MD on Jan 19 2025 5:11PM EST [id number] N Normal [facility] aPTT PPPon 01-19-2025 aPTT Coag (PPP) [Time] 29.2 s Normal 23.0-32.4 Cl [facility] Comment on above: Order Comment: Speci men Type: BLOOD SPECIMENOrdering Facility: [facility] Address: [address] [place] [address] Performed By: #### 3 4528-0, 19446-4 ####[facility] LABCLIA [id number] [place] [address] [place] Anion gap in Serum or Plasma Ordered By: Anshul Lemus on 01-10-2025 Anion gap [Moles/Vol] 11 mmol/L 11-[address] [facility] BUN/creatinine ratioOrdered By: Anshul Lemus on 01-10-2025 Urea nitrogen/Creatinine [Mass ratio] 14.6 mg/mg 10-20 [facility] Bilirubin, totalOrdered By: Anshul Lemus on 01-10-2025 Bilirubin [Mass/Vol] 2.47 mg/dL High 0.00-1.30 [facility] Carbon dioxide, total [Moles /volume] in Central venous bloodOrdered By: Anshul Lemus on 01-10-2025 CO2 [Moles/Vol] 26.1 mmol/L 21.0-32.0 [facility] Chloride assayOrdered By: Farooq Lemus on 01-10-2025 Chloride [Moles/Vol] 102 mmol/L 98-108 [facility] Comprehensive Metabolic Prof ilon 01-10-2025 Albumin [Mass/Vol] 2.9 g/dL Low 3.5-5.0 [facility] Comment on above: Performed By: #### L 500.4050 #### [facility] [address] [place], [address] Albumin/Globulin [Mass ratio] 1.0 {ratio} Normal 0.9-2.4 [facility] Comment on above: Performed By: #### L 500.4050 #### [facility] [address] [place], [address] ALK PHOS 454 U/L High 40-129 [facility] Comment on above: Performed By: #### L 500.4050 #### [facility] [address] [place], [address] ALT [Catalytic activity/Vol] 18 U/L Normal <=46 [facility] Comment on above: Performed By: #### L 500.4050 #### [facility] [address] [place], [address] AST [Catalytic activity/Vol] 30 U/L Normal <=37 [facility] Comment on above: Performed By: #### L 500.4050 #### [facility] [address] [place], [address] Bilirubin [Mass/Vol] 2.47 mg/dL High 0.00-1.30 [facility] Comment on above: Performed By: #### L 500.4050 #### [facility] [address] [place], [address] BUN/CRE 14.6 RATIO Normal 10-20 [facility] Comment on above: Performed By: #### L 500.4050 #### [facility] [address] [place], [address] Calcium [Mass/Vol] 7.9 mg/dL Normal 7.6-11.0 [facility] Comment on above: Performed By: #### L 500.4050 #### [facility] [address] [place], [address] Chloride [Moles/Vol] 102 mmol/L Normal 98-108 [facility] Comment on above: Performed By: #### L 500.4050 #### [facility] [address] [place], [address] CO2 [Moles/Vol] 26.1 mmol/L Normal 21.0-32.0 [facility] Comment on above: Performed By: #### L 500.4050 #### [facility] [address] [place], [address] Creatinine [Mass/Vol] 1.55 mg/dL High 0.70-1.[address] [facility] Comment on above: Performed By: #### L 500.4050 #### [facility] [address] [place], [address] ECRCL 61.74 ml/min Normal 50-250 [facility] Comment on above: Performed By: #### L 500.4050 #### [facility] [address] [place], [address] GAP 11 Normal 5-15 [facility] Comment on above: Performed By: #### L 500.4050 #### [facility] [address] [place], [address] GFR/1.73 sq M.predicted among non-blacks MDRD (S/P/Bld) [Vol rate/Area] 56 mL/min/{1.73_m2} Low >60 [facility] Comment on above: Result Comment: mL/m in/1.73m2 CKD-EPI Creatinine Equation (2020) Performed By: #### L 500.4050 #### [facility] [address] [place], [address] Globulin (S) [Mass/Vol] 2.9 g/dL Normal 2.2-4.2 [facility] Comment on above: Performed By: #### L 500.4050 #### [facility] [address] [place], [address] Glucose [Mass/Vol] 92 mg/dL Normal 70-99 [facility] Comment on above: Performed By: #### L 500.4050 #### [facility] [address] [place], [address] Potassium [Moles/Vol] 3.9 mmol/L Normal 3.3-5.[address] [facility] Comment on above: Performed By: #### L 500.4050 #### [facility] [address] [place], [address] Sodium [Moles/Vol] 139 mmol/L Normal 133-145 [facility] Comment on above: Performed By: #### L 500.4050 #### [facility] [address] [place], [address] T PROT 5.8 g/dL Low 5.9-8.4 [facility] Comment on above: Performed By: #### L 500.4050 #### [facility] [address] [place], [address] Urea nitrogen [Mass/Vol] 23 mg/dL High 4-19 [facility] Comment on above: Performed By: #### L 500.4050 #### [facility] [address] [place], [address] Glomerular filtration rate ( GFR) estimation/1.73 sq m using serum, plasma, or whole bOrdered By: Anshul Lemus on 01-10-2025 GFR/1.73 sq M.predicted among non-blacks MDRD (S/P/Bld) [Vol rate/Area] 56 mL/min/{1.73_m2} Low >60 [facility] Comment on above: mL/min/1.73m2 CKD-EP I Creatinine Equation (2020) Laboratory - Chemistry and C hemistry - challengeOrdered By: Anshul Lemus on 01-10-2025 AST [Catalytic activity/Vol] 30 U/L <38 [facility] Potassium measurement (mass/ volume)Ordered By: Anshul Lemus on 01-10-2025 Potassium (Unsp spec) [Mass/Vol] 3.9 mmol/L 3.3-5.1 [facility] Serum creatinine measurement (mass/volume)Ordered By: Anshul Lemus on 01-10-2025 Creatinine [Mass/Vol] 1.55 mg/dL High 0.70-1.[address] [facility] Serum globulin measurementOr dered By: Anshul Lemus on 01-10-2025 Globulin (S) [Mass/Vol] 2.9 g/dL 2.2-4.2 [facility] Serum glucose measurement (m ass/volume)Ordered By: Anshul Lemus on 01-10-2025 Glucose [Mass/Vol] 92 mg/dL 70-99 [facility] Serum or plasma alanine de paz otransferase (ALT) measurementOrdered By: Anshul Lemus on 01-10-2025 ALT [Catalytic activity/Vol] 18 U/L <47 [facility] Serum or plasma albumin fidel urement (mass/volume)Ordered By: Anshul Lemus on 01-10-2025 Albumin [Mass/Vol] 2.9 g/dL Low 3.5-5.0 [facility] Serum or plasma albumin/glob ulin mass ratioOrdered By: Anshul Lemus on 01-10-2025 Albumin/Globulin [Mass ratio] 1.0 {ratio} 0.9-2.4 [facility] Serum or plasma alkaline nick sphatase measurementOrdered By: Anshul Lemus on 01-10-2025 ALP [Catalytic activity/Vol] 454 U/L High 40-129 [facility] Serum or plasma calcium fidel urement (mass/volume)Ordered By: Anshul Lemus on 01-10-2025 Calcium [Mass/Vol] 7.9 mg/dL 7.6-11.0 [facility] Serum or plasma urea nitroge n measurement (mass/volume)Ordered By: Anshul Lemus on 01-10-2025 Urea nitrogen [Mass/Vol] 23 mg/dL High 4-19 [facility] Sodium levelOrdered By: Anshul Lemus on 01-10-2025 Sodium [Moles/Vol] 139 mmol/L 133-145 [facility] Total proteinOrdered By: Damari Lemus on 01-10-2025 Protein [Mass/Vol] 5.8 g/dL Low 5.9-8.4 [facility] Basic Metabolic Profile (BMP )on 01-09-2025 BUN/CRE 14.5 RATIO Normal 10-20 [facility] Comment on above: Performed By: #### L 500.2500 #### [facility] [address] [place], [address] Calcium [Mass/Vol] 7.9 mg/dL Normal 7.6-11.0 [facility] Comment on above: Performed By: #### L 500.2500 #### [facility] [address] [place], [address] Chloride [Moles/Vol] 102 mmol/L Normal 98-108 [facility] Comment on above: Performed By: #### L 500.2500 #### [facility] [address] [place], [address] CO2 [Moles/Vol] 27.2 mmol/L Normal 21.0-32.0 [facility] Comment on above: Performed By: #### L 500.2500 #### [facility] [address] [place], [address] Creatinine [Mass/Vol] 1.70 mg/dL High 0.70-1.[address] [facility] Comment on above: Performed By: #### L 500.2500 #### [facility] [address] [place], [address] ECRCL 59.21 ml/min Normal 50-250 [facility] Comment on above: Performed By: #### L 500.2500 #### [facility] [address] [place], [address] GAP 11 Normal 5-15 [facility] Comment on above: Performed By: #### L 500.2500 #### [facility] [address] [place], [address] GFR/1.73 sq M.predicted among non-blacks MDRD (S/P/Bld) [Vol rate/Area] 50 mL/min/{1.73_m2} Low >60 [facility] Comment on above: Result Comment: mL/m in/1.73m2 CKD-EPI Creatinine Equation (2020) Performed By: #### L 500.2500 #### [facility] [address] [place], [address] Glucose [Mass/Vol] 106 mg/dL High 70-99 [facility] Comment on above: Performed By: #### L 500.2500 #### [facility] [address] [place], [address] Potassium [Moles/Vol] 3.8 mmol/L Normal 3.3-5.[address] [facility] Comment on above: Performed By: #### L 500.2500 #### [facility] [address] [place], [address] Sodium [Moles/Vol] 140 mmol/L Normal 133-145 [facility] Comment on above: Performed By: #### L 500.2500 #### [facility] [address] [place], [address] Urea nitrogen [Mass/Vol] 25 mg/dL High 4-19 [facility] Comment on above: Performed By: #### L 500.2500 #### [facility] [address] [place], [address] Basic Metabolic Profile (BMP )on 01-08-2025 BUN/CRE 12.6 RATIO Normal 10-20 [facility] Comment on above: Performed By: #### L 500.4050, L100.0100 #### [facility] [address] [place], [address] Calcium [Mass/Vol] 8.3 mg/dL Normal 7.6-11.0 [facility] Comment on above: Performed By: #### L 500.4050, L100.0100 #### [facility] [address] [place], [address] Chloride [Moles/Vol] 101 mmol/L Normal 98-108 [facility] Comment on above: Performed By: #### L 500.4050, L100.0100 #### [facility] [address] [place], [address] CO2 [Moles/Vol] 28.2 mmol/L Normal 21.0-32.0 [facility] Comment on above: Performed By: #### L 500.4050, L100.0100 #### [facility] [address] [place], [address] Creatinine [Mass/Vol] 1.83 mg/dL High 0.70-1.[address] [facility] Comment on above: Performed By: #### L 500.4050, L100.0100 #### [facility] [address] [place], [address] ECRCL 54.58 ml/min Normal 50-250 [facility] Comment on above: Performed By: #### L 500.4050, L100.0100 #### [facility] [address] [place], [address] GAP 12 Normal 5-15 [facility] Comment on above: Performed By: #### L 500.4050, L100.0100 #### [facility] [address] [place], [address] GFR/1.73 sq M.predicted among non-blacks MDRD (S/P/Bld) [Vol rate/Area] 46 mL/min/{1.73_m2} Low >60 [facility] Comment on above: Result Comment: mL/m in/1.73m2 CKD-EPI Creatinine Equation (2020) Performed By: #### L 500.4050, L100.0100 #### [facility] [address] [place], [address] Glucose [Mass/Vol] 100 mg/dL High 70-99 [facility] Comment on above: Performed By: #### L 500.4050, L100.0100 #### [facility] [address] [place], [address] Potassium [Moles/Vol] 3.8 mmol/L Normal 3.3-5.[address] [facility] Comment on above: Performed By: #### L 500.4050, L100.0100 #### [facility] [address] [place], [address] Sodium [Moles/Vol] 141 mmol/L Normal 133-145 [facility] Comment on above: Performed By: #### L 500.4050, L100.0100 #### [facility] [address] [place], [address] Urea nitrogen [Mass/Vol] 23 mg/dL High 4-19 [facility] Comment on above: Performed By: #### L 500.4050, L100.0100 #### [facility] [address] [place], [address] Comprehensive Metabolic Prof ilon 01-07-2025 Albumin [Mass/Vol] 3.2 g/dL Low 3.5-5.0 [facility] Comment on above: Order Comment: CAUGH T WHEN STORING TUBES AND WAS FOUND ON TRACKING LOG.PULLED TUBE IMMEDIATELY AND RAN. Performed By: #### L 499.0042 #### [facility] [address] [place], [address] Albumin/Globulin [Mass ratio] 1.1 {ratio} Normal 0.9-2.4 [facility] Comment on above: Order Comment: CAUGH T WHEN STORING TUBES AND WAS FOUND ON TRACKING LOG.PULLED TUBE IMMEDIATELY AND RAN. Performed By: #### L 499.0042 #### [facility] [address] [place], [address] ALK PHOS 585 U/L High 40-129 [facility] Comment on above: Order Comment: CAUGH T WHEN STORING TUBES AND WAS FOUND ON TRACKING LOG.PULLED TUBE IMMEDIATELY AND RAN. Performed By: #### L 499.0042 #### [facility] [address] [place], [address] ALT [Catalytic activity/Vol] 20 U/L Normal <=46 [facility] Comment on above: Order Comment: CAUGH T WHEN STORING TUBES AND WAS FOUND ON TRACKING LOG.PULLED TUBE IMMEDIATELY AND RAN. Performed By: #### L 499.0042 #### [facility] [address] [place], [address] AST [Catalytic activity/Vol] 29 U/L Normal <=37 [facility] Comment on above: Order Comment: CAUGH T WHEN STORING TUBES AND WAS FOUND ON TRACKING LOG.PULLED TUBE IMMEDIATELY AND RAN. Performed By: #### L 499.0042 #### [facility] [address] [place], [address] Bilirubin [Mass/Vol] 2.65 mg/dL High 0.00-1.30 [facility] Comment on above: Order Comment: CAUGH T WHEN STORING TUBES AND WAS FOUND ON TRACKING LOG.PULLED TUBE IMMEDIATELY AND RAN. Performed By: #### L 499.0042 #### [facility] [address] [place], [address] BUN/CRE 13.1 RATIO Normal 10-20 [facility] Comment on above: Order Comment: CAUGH T WHEN STORING TUBES AND WAS FOUND ON TRACKING LOG.PULLED TUBE IMMEDIATELY AND RAN. Performed By: #### L 499.0042 #### [facility] [address] [place], [address] Calcium [Mass/Vol] 8.0 mg/dL Normal 7.6-11.0 [facility] Comment on above: Order Comment: CAUGH T WHEN STORING TUBES AND WAS FOUND ON TRACKING LOG.PULLED TUBE IMMEDIATELY AND RAN. Performed By: #### L 499.0042 #### [facility] [address] [place], [address] Chloride [Moles/Vol] 102 mmol/L Normal 98-108 [facility] Comment on above: Order Comment: CAUGH T WHEN STORING TUBES AND WAS FOUND ON TRACKING LOG.PULLED TUBE IMMEDIATELY AND RAN. Performed By: #### L 499.0042 #### [facility] [address] [place], [address] CO2 [Moles/Vol] 28.4 mmol/L Normal 21.0-32.0 [facility] Comment on above: Order Comment: CAUGH T WHEN STORING TUBES AND WAS FOUND ON TRACKING LOG.PULLED TUBE IMMEDIATELY AND RAN. Performed By: #### L 499.0042 #### [facility] [address] [place], [address] Creatinine [Mass/Vol] 1.75 mg/dL High 0.70-1.[address] [facility] Comment on above: Order Comment: CAUGH T WHEN STORING TUBES AND WAS FOUND ON TRACKING LOG.PULLED TUBE IMMEDIATELY AND RAN. Performed By: #### L 499.0042 #### [facility] [address] [place], [address] ECRCL 56.03 ml/min Normal 50-250 [facility] Comment on above: Order Comment: CAUGH T WHEN STORING TUBES AND WAS FOUND ON TRACKING LOG.PULLED TUBE IMMEDIATELY AND RAN. Performed By: #### L 499.0042 #### [facility] [address] [place], [address] GAP 10 Normal 5-15 [facility] Comment on above: Order Comment: CAUGH T WHEN STORING TUBES AND WAS FOUND ON TRACKING LOG.PULLED TUBE IMMEDIATELY AND RAN. Performed By: #### L 499.0042 #### [facility] [address] [place], [address] GFR/1.73 sq M.predicted among non-blacks MDRD (S/P/Bld) [Vol rate/Area] 48 mL/min/{1.73_m2} Low >60 [facility] Comment on above: Order Comment: CAUGH T WHEN STORING TUBES AND WAS FOUND ON TRACKING LOG.PULLED TUBE IMMEDIATELY AND RAN. Result Comment: mL/m in/1.73m2 CKD-EPI Creatinine Equation (2020) Performed By: #### L 499.0042 #### [facility] [address] [place], [address] Globulin (S) [Mass/Vol] 2.8 g/dL Normal 2.2-4.2 [facility] Comment on above: Order Comment: CAUGH T WHEN STORING TUBES AND WAS FOUND ON TRACKING LOG.PULLED TUBE IMMEDIATELY AND RAN. Performed By: #### L 499.0042 #### [facility] [address] [place], [address] Glucose [Mass/Vol] 94 mg/dL Normal 70-99 [facility] Comment on above: Order Comment: CAUGH T WHEN STORING TUBES AND WAS FOUND ON TRACKING LOG.PULLED TUBE IMMEDIATELY AND RAN. Performed By: #### L 499.0042 #### [facility] [address] [place], [address] Potassium [Moles/Vol] 3.1 mmol/L Low 3.3-5.[address] [facility] Comment on above: Order Comment: CAUGH T WHEN STORING TUBES AND WAS FOUND ON TRACKING LOG.PULLED TUBE IMMEDIATELY AND RAN. Performed By: #### L 499.0042 #### [facility] [address] [place], [address] Sodium [Moles/Vol] 141 mmol/L Normal 133-145 [facility] Comment on above: Order Comment: CAUGH T WHEN STORING TUBES AND WAS FOUND ON TRACKING LOG.PULLED TUBE IMMEDIATELY AND RAN. Performed By: #### L 499.0042 #### [facility] [address] [place], [address] T PROT 6.0 g/dL Normal 5.9-8.4 [facility] Comment on above: Order Comment: CAUGH T WHEN STORING TUBES AND WAS FOUND ON TRACKING LOG.PULLED TUBE IMMEDIATELY AND RAN. Performed By: #### L 499.0042 #### [facility] [address] [place], [address] Urea nitrogen [Mass/Vol] 23 mg/dL High 4-19 [facility] Comment on above: Order Comment: CAUGH T WHEN STORING TUBES AND WAS FOUND ON TRACKING LOG.PULLED TUBE IMMEDIATELY AND RAN. Performed By: #### L 499.0042 #### [facility] [address] [place], [address] Consultation - Cardiologyon 01-07-2025 Consultation - Cardiology [facility] Medical Records Department [address] [place] [address] Consultation - Cardiology 01/07/25 1336 MR#: [id number] Acct: [id number] Name: CARLO MEDINA Rep #: [id number] : 1980 44 From: Lavon Campo MD PCP: Care Physician,No Primary Status:ADM IN Location: [place] [address] Assessment Plan Assessment/Plan (1) HFrEF (heart failure [...] and SGLT2 Recommend transferring the patient to [facility] for BiV evaluation. Noncompliance is a major [...] time. Has had numerous hospitalizations over at [facility] [facility] [place] and recently was over at [facility] in September. It is documented throughout his charts at [facility] as well as [facility] that he has a history of noncompliance. [...] second degree av block with intermittent CHB. [facility] Medical History Kidney disease Non-smoker Irregular heart [...] Non-Af 48 (more content not included)... Normal [facility] Absolute lymphocyte countOrd ered By: Anshul Lemus on 01-06-2025 Lymphocytes Auto (Unsp spec) [#/Vol] 1.71 10*3/uL 0.83-4.51 [facility] Absolute neutrophil countOrd ered By: Anshul Lemus on 01-06-2025 Neutrophils (Bld) [#/Vol] 3.8 10*3/uL 2.0-7.7 [facility] Automated lymphocyte count a s percentage of total leukocytesOrdered By: Anshul Lemus on 01-06-2025 Lymphocytes/100 WBC Auto (Unsp spec) 28.0 % 19-41 [facility] Basophil percentageOrdered B y: Anshul Lemus on 01-06-2025 Basophils/100 WBC (Bld) 0.3 % 0-1 [facility] CBC W/Diff, Automatedon 12-28 Absolute Lymph 1.71 X10 3/uL Normal 0.83-4.51 [facility] Comment on above: Performed By: #### L 500.4050, L100.0100 #### [facility] [address] [place], [address] Absolute Neut 3.8 X10 3/uL Normal 2.0-7.7 [facility] Comment on above: Performed By: #### L 500.4050, L100.0100 #### [facility] [address] [place], [address] Basophils/100 WBC (Bld) 0.3 % Normal 0-1 [facility] Comment on above: Performed By: #### L 500.4050, L100.0100 #### [facility] [address] [place], [address] Eosinophils/100 WBC (Bld) 1.0 % Normal 0-5 [facility] Comment on above: Performed By: #### L 500.4050, L100.0100 #### [facility] [address] [place], [address] Erythrocyte distribution width (RBC) [Ratio] 15.0 % High 11.6-14.6 [facility] Comment on above: Performed By: #### L 500.4050, L100.0100 #### [facility] [address] [place], [address] Hematocrit (Bld) [Volume fraction] 37.0 % Low 40-54 [facility] Comment on above: Performed By: #### L 500.4050, L100.0100 #### [facility] [address] [place], [address] Hemoglobin (Bld) [Mass/Vol] 11.9 g/dL Low 13.0-16.5 [facility] Comment on above: Performed By: #### L 500.4050, L100.0100 #### [facility] [address] [place], [address] IG% 0.200 Normal 0.0-0.9 [facility] Comment on above: Result Comment: IG% - Immature Granulocytes (promyelocytes, myelocytes and metamyelocytes) > 1% indicates that a LEFT SHIFT is Present. Performed By: #### L 500.4050, L100.0100 #### [facility] [address] [place], [address] Lymphocytes/100 WBC (Bld) 28.0 % Normal 19-41 [facility] Comment on above: Performed By: #### L 500.4050, L100.0100 #### [facility] [address] [place], [address] MCH (RBC) [Entitic mass] 33.6 pg High 27.0-32.0 [facility] Comment on above: Performed By: #### L 500.4050, L100.0100 #### [facility] [address] [place], [address] MCHC (RBC) [Mass/Vol] 32.2 g/dL Normal 32-[address] [facility] Comment on above: Performed By: #### L 500.4050, L100.0100 #### [facility] [address] [place], [address] MCV (RBC) [Entitic vol] 104.5 fL High 80-94 [facility] Comment on above: Performed By: #### L 500.4050, L100.0100 #### [facility] [address] [place], [address] Monocytes/100 WBC (Bld) 8.9 % Normal 0-10 [facility] Comment on above: Performed By: #### L 500.4050, L100.0100 #### [facility] [address] [place], [address] Neutrophils/100 WBC (Bld) 61.6 % Normal 47-70 [facility] Comment on above: Performed By: #### L 500.4050, L100.0100 #### [facility] [address] [place], [address] Nucleated RBC (Bld) [#/Vol] 0 10*3/uL Normal 0-5 [facility] Comment on above: Performed By: #### L 500.4050, L100.0100 #### [facility] [address] [place], [address] Platelet mean volume (Bld) [Entitic vol] 10.0 fL Normal 6.2-12.0 [facility] Comment on above: Performed By: #### L 500.4050, L100.0100 #### [facility] [address] [place], [address] Platelets (Bld) [#/Vol] 219 10*3/uL Normal 150-450 [facility] Comment on above: Performed By: #### L 500.4050, L100.0100 #### [facility] [address] [place], [address] RBC (Bld) [#/Vol] 3.54 10*6/uL Low 4.6-6.2 [facility] Comment on above: Performed By: #### L 500.4050, L100.0100 #### [facility] [address] [place], [address] RDW SD 57.7 fl High 35.1-43.9 [facility] Comment on above: Performed By: #### L 500.4050, L100.0100 #### [facility] [address] [place], [address] WBC (Bld) [#/Vol] 6.1 10*3/uL Normal 4.4-11.0 [facility] Comment on above: Performed By: #### L 500.4050, L100.0100 #### [facility] [address] [place], [address] Comprehensive Metabolic Prof ilon 01-06-2025 Albumin [Mass/Vol] 3.1 g/dL Low 3.5-5.0 [facility] Comment on above: Performed By: #### L 500.4050, L100.0100 #### [facility] [address] [place], [address] Albumin/Globulin [Mass ratio] 1.1 {ratio} Normal 0.9-2.4 [facility] Comment on above: Performed By: #### L 500.4050, L100.0100 #### [facility] [address] [place], [address] ALK PHOS 638 U/L High 40-129 [facility] Comment on above: Performed By: #### L 500.4050, L100.0100 #### [facility] [address] [place], [address] ALT [Catalytic activity/Vol] 19 U/L Normal <=46 [facility] Comment on above: Performed By: #### L 500.4050, L100.0100 #### [facility] [address] [place], [address] AST [Catalytic activity/Vol] 27 U/L Normal <=37 [facility] Comment on above: Performed By: #### L 500.4050, L100.0100 #### [facility] [address] [place], [address] Bilirubin [Mass/Vol] 2.99 mg/dL High 0.00-1.30 [facility] Comment on above: Performed By: #### L 500.4050, L100.0100 #### [facility] [address] [place], [address] BUN/CRE 14.3 RATIO Normal 10-20 [facility] Comment on above: Performed By: #### L 500.4050, L100.0100 #### [facility] [address] [place], [address] Calcium [Mass/Vol] 8.2 mg/dL Normal 7.6-11.0 [facility] Comment on above: Performed By: #### L 500.4050, L100.0100 #### [facility] [address] [place], [address] Chloride [Moles/Vol] 103 mmol/L Normal 98-108 [facility] Comment on above: Performed By: #### L 500.4050, L100.0100 #### [facility] [address] [place], [address] CO2 [Moles/Vol] 26.8 mmol/L Normal 21.0-32.0 [facility] Comment on above: Performed By: #### L 500.4050, L100.0100 #### [facility] [address] [place], [address] Creatinine [Mass/Vol] 1.91 mg/dL High 0.70-1.[address] [facility] Comment on above: Performed By: #### L 500.4050, L100.0100 #### [facility] [address] [place], [address] ECRCL 52.15 ml/min Normal 50-250 [facility] Comment on above: Performed By: #### L 500.4050, L100.0100 #### [facility] [address] [place], [address] GAP 13 Normal 5-15 [facility] Comment on above: Performed By: #### L 500.4050, L100.0100 #### [facility] [address] [place], [address] GFR/1.73 sq M.predicted among non-blacks MDRD (S/P/Bld) [Vol rate/Area] 43 mL/min/{1.73_m2} Low >60 [facility] Comment on above: Result Comment: mL/m in/1.73m2 CKD-EPI Creatinine Equation (2020) Performed By: #### L 500.4050, L100.0100 #### [facility] [address] [place], [address] Globulin (S) [Mass/Vol] 2.9 g/dL Normal 2.2-4.2 [facility] Comment on above: Performed By: #### L 500.4050, L100.0100 #### [facility] [address] [place], [address] Glucose [Mass/Vol] 97 mg/dL Normal 70-99 [facility] Comment on above: Performed By: #### L 500.4050, L100.0100 #### [facility] [address] [place], [address] Potassium [Moles/Vol] 3.1 mmol/L Low 3.3-5.[address] [facility] Comment on above: Performed By: #### L 500.4050, L100.0100 #### [facility] [address] [place], [address] Sodium [Moles/Vol] 143 mmol/L Normal 133-145 [facility] Comment on above: Performed By: #### L 500.4050, L100.0100 #### [facility] [address] [place], [address] T PROT 6.0 g/dL Normal 5.9-8.4 [facility] Comment on above: Performed By: #### L 500.4050, L100.0100 #### [facility] [address] [place], [address] Urea nitrogen [Mass/Vol] 27 mg/dL High 4-19 [facility] Comment on above: Performed By: #### L 500.4050, L100.0100 #### [facility] [address] [place], [address] Electrocardiogram reportOrde red By: Clark Almaraz on 01-06-2025 EKG study [facility] [address] [place] [address] 12 Lead EKG 01/04/25 0734 MR#: [id number] Acct: [id number] Name: CARLO MEDINA Rep #:[id number] : 1980 44 From: Clark Almaraz MD Attending Dr: Dr. Anshul Lemus DO Status: ADM IN Ordering Dr: Deborah Penaloza DO Date: 0 01/04/25 Location: [facility] Sex: M AA Admitted: 01/04/25 Test Reason [...] Abnormal ECG Reconfirmed by CLARK ALMARAZ MD ([id number]), editorial writer GRACE KIDD ([id number]) on 01/06/2025 6:44:03 AM Referred By: Confirmed By: CLARK ALMARAZ MD 01/06/25 0644 Date _ Clark Almaraz MD CC: Dr. Deborah Penaloza DO; Dr. Anshul Lemus, ; No Primary Care Physician ~ Signed [facility] Work Phone: Eosinophil percentageOrdered By: Anshul Lemus on 01-06-2025 Eosinophils/100 WBC (Bld) 1.0 % 0-5 [facility] Erythrocyte distribution wid th ratioOrdered By: Anshul Lemus on 01-06-2025 Erythrocyte distribution width (RBC) [Ratio] 15.0 % High 11.6-14.6 [facility] Erythrocyte distribution wid th standard deviationOrdered By: Anshul Lemus on 01-06-2025 Erythrocyte distribution width (RBC) [Ratio] 57.7 fl High 35.1-43.9 [facility] Hematocrit Auto (Bld) [Volum e fraction]Ordered By: Anshul Lemus on 01-06-2025 Hematocrit (Bld) [Volume fraction] 37.0 % Low 40-54 [facility] Hemoglobin measurementOrdere d By: Anshul Lemus on 01-06-2025 Hemoglobin (Bld) [Mass/Vol] 11.9 g/dL Low 13.0-16.5 [facility] Immature granulocytes/100 WB C Auto (Bld)Ordered By: Anshul Lemus on 01-06-2025 Immature granulocytes/100 WBC (Bld) 0.200 % 0.0-0.9 [facility] Comment on above: IG% - Immature Granu locytes (promyelocytes, myelocytes and metamyelocytes) > 1% indicates that a LEFT SHIFT is Present. MCV (mean corpuscular volume ) determinationOrdered By: Anshul Lemus on 01-06-2025 MCV (RBC) [Entitic vol] 104.5 fL High 80-94 [facility] Magnesiumon 01-06-2025 Magnesium [Mass/Vol] 1.8 mg/dL Normal 1.5-2.2 [facility] Comment on above: Performed By: #### L 499.0042 #### [facility] [address] [place] [address], [id number] Magnesium measurement (mass/ volume)Ordered By: Anshul Lemus on 01-06-2025 Magnesium (Unsp spec) [Mass/Vol] 1.8 mg/dL 1.5-2.2 [facility] Mean corpuscular hemoglobin (MCH) determinationOrdered By: Anshul Lemus on 01-06-2025 MCH (RBC) [Entitic mass] 33.6 pg High 27.0-32.0 [facility] Mean corpuscular hemoglobin concentration (MCHC) determinationOrdered By: Anshul Lemus on 01-06-2025 MCHC (RBC) [Mass/Vol] 32.2 g/dL 32-[address] [facility] Mean platelet volume determi nationOrdered By: Anshul Lemus on 01-06-2025 Platelet mean volume (Bld) [Entitic vol] 10.0 fL 6.2-12.0 [facility] Monocyte percentageOrdered B y: Anshulcordelia Lemus on 01-06-2025 Monocytes/100 WBC (Bld) 8.9 % 0-10 [facility] Neutrophil percentageOrdered By: Anshulcordelia Lemus on 01-06-2025 Neutrophils/100 WBC (Bld) 61.6 % 47-70 [facility] Nucleated red blood cell per centageOrdered By: Anshulcordelia Lemus on 01-06-2025 Nucleated RBC/100 WBC (Bld) [Ratio] 0 % 0-5 [facility] Platelet countOrdered By: Farooq cordelia Lemus on 01-06-2025 Platelets (Bld) [#/Vol] 219 10*3/uL 150-450 [facility] RBC Auto (Bld) [#/Vol]Ordere d By: Anshulcordelia Lemus on 01-06-2025 RBC (Bld) [#/Vol] 3.54 10*6/uL Low 4.6-6.2 [facility] White blood cell (WBC) count Ordered By: Anshul Lemus on 01-06-2025 WBC (Bld) [#/Vol] 6.1 10*3/uL 4.4-11.0 [facility] CBC W/Diff, Automatedon 07-0 Absolute Lymph 1.62 X10 3/uL Normal 0.83-4.51 [facility] Comment on above: Order Comment: PT RE FUSED X2 NURSE NOTFIED Performed By: #### L 499.0042 #### [facility] [address] [place], [place], [id number] Absolute Neut 4.2 X10 3/uL Normal 2.0-7.7 [facility] Comment on above: Order Comment: PT RE FUSED X2 NURSE NOTFIED Performed By: #### L 499.0042 #### [facility] [address] [place], [address] Basophils/100 WBC (Bld) 0.5 % Normal 0-1 [facility] Comment on above: Order Comment: PT RE FUSED X2 NURSE NOTFIED Performed By: #### L 499.0042 #### [facility] [address] [place], [address] Eosinophils/100 WBC (Bld) 0.6 % Normal 0-5 [facility] Comment on above: Order Comment: PT RE FUSED X2 NURSE NOTFIED Performed By: #### L 499.0042 #### [facility] [address] [place], [address] Erythrocyte distribution width (RBC) [Ratio] 15.0 % High 11.6-14.6 [facility] Comment on above: Order Comment: PT RE FUSED X2 NURSE NOTFIED Performed By: #### L 499.0042 #### [facility] [address] [place], [address] Hematocrit (Bld) [Volume fraction] 39.7 % Low 40-54 [facility] Comment on above: Order Comment: PT RE FUSED X2 NURSE NOTFIED Performed By: #### L 499.0042 #### [facility] [address] [place], [address] Hemoglobin (Bld) [Mass/Vol] 12.9 g/dL Low 13.0-16.5 [facility] Comment on above: Order Comment: PT RE FUSED X2 NURSE NOTFIED Performed By: #### L 499.0042 #### [facility] [address] [place], [address] IG% 0.300 Normal 0.0-0.9 [facility] Comment on above: Order Comment: PT RE FUSED X2 NURSE NOTFIED Result Comment: IG% - Immature Granulocytes (promyelocytes, myelocytes and metamyelocytes) > 1% indicates that a LEFT SHIFT is Present. Performed By: #### L 499.0042 #### [facility] [address] [place], [address] Lymphocytes/100 WBC (Bld) 25.5 % Normal 19-41 [facility] Comment on above: Order Comment: PT RE FUSED X2 NURSE NOTFIED Performed By: #### L 499.0042 #### [facility] [address] [place], [address] MCH (RBC) [Entitic mass] 33.3 pg High 27.0-32.0 [facility] Comment on above: Order Comment: PT RE FUSED X2 NURSE NOTFIED Performed By: #### L 499.0042 #### [facility] [address] [place], [address] MCHC (RBC) [Mass/Vol] 32.5 g/dL Normal 32-[address] [facility] Comment on above: Order Comment: PT RE FUSED X2 NURSE NOTFIED Performed By: #### L 499.0042 #### [facility] [address] [place], [address] MCV (RBC) [Entitic vol] 102.6 fL High 80-94 [facility] Comment on above: Order Comment: PT RE FUSED X2 NURSE NOTFIED Performed By: #### L 499.0042 #### [facility] [address] [place], [address] Monocytes/100 WBC (Bld) 7.4 % Normal 0-10 [facility] Comment on above: Order Comment: PT RE FUSED X2 NURSE NOTFIED Performed By: #### L 499.0042 #### [facility] [address] [place], [address] Neutrophils/100 WBC (Bld) 65.7 % Normal 47-70 [facility] Comment on above: Order Comment: PT RE FUSED X2 NURSE NOTFIED Performed By: #### L 499.0042 #### [facility] [address] [place], [address] Nucleated RBC (Bld) [#/Vol] 0 10*3/uL Normal 0-5 [facility] Comment on above: Order Comment: PT RE FUSED X2 NURSE NOTFIED Performed By: #### L 499.0042 #### [facility] [address] [place], [address] Platelet mean volume (Bld) [Entitic vol] 10.0 fL Normal 6.2-12.0 [facility] Comment on above: Order Comment: PT RE FUSED X2 NURSE NOTFIED Performed By: #### L 499.0042 #### [facility] [address] [place], [address] Platelets (Bld) [#/Vol] 229 10*3/uL Normal 150-450 [facility] Comment on above: Order Comment: PT RE FUSED X2 NURSE NOTFIED Performed By: #### L 499.0042 #### [facility] [address] [place], [address] RBC (Bld) [#/Vol] 3.87 10*6/uL Low 4.6-6.2 [facility] Comment on above: Order Comment: PT RE FUSED X2 NURSE NOTFIED Performed By: #### L 499.0042 #### [facility] [address] [place], [address] RDW SD 56.2 fl High 35.1-43.9 [facility] Comment on above: Order Comment: PT RE FUSED X2 NURSE NOTFIED Performed By: #### L 499.0042 #### [facility] [address] [place], [address] WBC (Bld) [#/Vol] 6.4 10*3/uL Normal 4.4-11.0 [facility] Comment on above: Order Comment: PT RE FUSED X2 NURSE NOTFIED Performed By: #### L 499.0042 #### [facility] [address] [place], [address] Calculated very low density lipoprotein (VLDL) cholesterol measurementOrdered By: Anshul Lemus on 01-05-2025 Calculated very low density lipoprotein (VLDL) cholesterol measurement 18 mg/dL 5-40 [facility] Comprehensive Metabolic Prof ilon 01-05-2025 Albumin [Mass/Vol] 3.4 g/dL Low 3.5-5.0 [facility] Comment on above: Performed By: #### L 499.0042 #### [facility] [address] [place], [address] Albumin/Globulin [Mass ratio] 1.0 {ratio} Normal 0.9-2.4 [facility] Comment on above: Performed By: #### L 499.0042 #### [facility] [address] [place], [address] ALK PHOS 751 U/L High 40-129 [facility] Comment on above: Performed By: #### L 499.0042 #### [facility] [address] [place], [address] ALT [Catalytic activity/Vol] 22 U/L Normal <=46 [facility] Comment on above: Performed By: #### L 499.0042 #### [facility] [address] [place], [address] AST [Catalytic activity/Vol] 29 U/L Normal <=37 [facility] Comment on above: Performed By: #### L 499.0042 #### [facility] [address] [place], [address] Bilirubin [Mass/Vol] 4.16 mg/dL High 0.00-1.30 [facility] Comment on above: Performed By: #### L 499.0042 #### [facility] [address] [place], [address] BUN/CRE 14.6 RATIO Normal 10-20 [facility] Comment on above: Performed By: #### L 499.0042 #### [facility] [address] [place], [address] Calcium [Mass/Vol] 8.9 mg/dL Normal 7.6-11.0 [facility] Comment on above: Performed By: #### L 499.0042 #### [facility] [address] [place], [address] Chloride [Moles/Vol] 103 mmol/L Normal 98-108 [facility] Comment on above: Performed By: #### L 499.0042 #### [facility] [address] [place], [address] CO2 [Moles/Vol] 25.7 mmol/L Normal 21.0-32.0 [facility] Comment on above: Performed By: #### L 499.0042 #### [facility] [address] [place], [address] Creatinine [Mass/Vol] 2.02 mg/dL High 0.70-1.[address] [facility] Comment on above: Performed By: #### L 499.0042 #### [facility] [address] [place], [address] ECRCL 49.31 ml/min Low 50-250 [facility] Comment on above: Performed By: #### L 499.0042 #### [facility] [address] [place], [address] GAP 15 Normal 5-15 [facility] Comment on above: Performed By: #### L 499.0042 #### [facility] [address] [place], [address] GFR/1.73 sq M.predicted among non-blacks MDRD (S/P/Bld) [Vol rate/Area] 40 mL/min/{1.73_m2} Low >60 [facility] Comment on above: Result Comment: mL/m in/1.73m2 CKD-EPI Creatinine Equation (2020) Performed By: #### L 499.0042 #### [facility] [address] [place], [address] Globulin (S) [Mass/Vol] 3.4 g/dL Normal 2.2-4.2 [facility] Comment on above: Performed By: #### L 499.0042 #### [facility] [address] [place], [address] Glucose [Mass/Vol] 124 mg/dL High 70-99 [facility] Comment on above: Performed By: #### L 499.0042 #### [facility] [address] [place], [address] Potassium [Moles/Vol] 3.1 mmol/L Low 3.3-5.[address] [facility] Comment on above: Performed By: #### L 499.0042 #### [facility] [address] [place], [address] Sodium [Moles/Vol] 144 mmol/L Normal 133-145 [facility] Comment on above: Performed By: #### L 499.0042 #### [facility] [address] [place], [address] T PROT 6.8 g/dL Normal 5.9-8.4 [facility] Comment on above: Performed By: #### L 499.0042 #### [facility] [address] [place], [address] Urea nitrogen [Mass/Vol] 29 mg/dL High 4-19 [facility] Comment on above: Performed By: #### L 499.0042 #### [facility] [address] [place], [address] International normalized rat io (INR) calculationOrdered By: Anshul Lemus on 01-05-2025 INR Coag (Bld) [Relative time] 1.6 {INR} [facility] LDL calc ser/plasOrdered By: Anshul Lemus on 01-05-2025 Cholesterol in LDL [Mass/Vol] 112 mg/dL [facility] [facility] Comment on above: Ypqqcoepmz=184-813 m g/dL & Higher Mjgp=085 mg/dL or greater Lipid Profileon 01-05-2025 CHOL:HDL 5.48 Normal [facility] Comment on above: Performed By: #### L 499.0042 #### [facility] [address] [place], [address] Cholesterol [Mass/Vol] 159 mg/dL Normal <=200 [facility] Comment on above: Result Comment: Chol esterol level, Desirable <200 mg/dL Borderline high cholesterol 200-239 mg/dL High cholesterol >=240 mg/dL Recommendations of the NCEP Adult Treatment Panel for the following risk-cutoff thresholds for the [place] population. Performed By: #### L 499.0042 #### [facility] [address] [place], [address] Cholesterol in HDL [Mass/Vol] 29 mg/dL Low [facility] Comment on above: Result Comment: Kati onal Cholesterol Education Program (NCEP) guidelines: <40 mg/dL: Low HDL-cholesterol (major risk factor for CHD) >= 60 mg/dL: High HDL-cholesterol (negative risk factor for CHD) HDL-cholesterol is affected by a number of factors, e.g. smoking, exercise, hormones, sex and age. Performed By: #### L 499.0042 #### [facility] [address] [place], [address] Cholesterol in LDL [Mass/Vol] 112 mg/dL Normal [facility] Comment on above: Result Comment: Bord ebrjer=674-596 mg/dL Higher Sxyy=891 mg/dL or greater Performed By: #### L 499.0042 #### [facility] [address] [place], [address] Cholesterol in VLDL [Mass/Vol] 18 mg/dL Normal 5-40 [facility] Comment on above: Performed By: #### L 499.0042 #### [facility] [address] [place], [address] Triglyceride [Mass/Vol] 88 mg/dL Normal [facility] Comment on above: Result Comment: The drugs N-Acetylcysteine and Metamizole may falsely depress this assay. Normal range: <150 mg/dL Borderline High: 150-199 mg/dL High: 200-499 mg/dL Very High: >500 mg/dL Performed By: #### L 499.0042 #### [facility] [address] [place], [place], [address] Prothrombin Time w/INRon INR Coag (PPP) [Relative time] 1.6 {INR} Normal [facility] Comment on above: Performed By: #### L 499.0042 #### [facility] [address] [place], [address] PT Coag (PPP) [Time] 19.4 s High 11.7-14.9 [facility] Comment on above: Performed By: #### L 499.0042 #### [facility] [address] [place], [address] Prothrombin timeOrdered By: Anshul Lemus on 01-05-2025 PT Coag (PPP) [Time] 19.4 s High 11.7-14.9 [facility] Screening total cholesterol/ high density lipoprotein (HDL) cholesterol ratioOrdered By: Anshul Lemus on 01-05-2025 Cholesterol.total/Chol esterol in HDL [Mass ratio] 5.48 {ratio} [facility] Serum or plasma cholesterol in HDL measurement (mass/volume)Ordered By: Anshul Lemus on 01-05-2025 Cholesterol in HDL [Mass/Vol] 29 mg/dL Low >40 [facility] Comment on above: National Cholesterol Education Program (NCEP) guidelines:<40 mg/dL: Low HDL-cholesterol (major risk factor for CHD)>= 60 mg/dL: High HDL-cholesterol (negative risk factor for CHD)HDL-cholesterol is affected by a number of factors, e.g. smoking, exercise, hormones, sex and age. Serum or plasma cholesterol measurement (mass/volume)Ordered By: Anshul Lemus on 01-05-2025 Cholesterol [Mass/Vol] 159 mg/dL <201 [facility] Comment on above: Cholesterol level, D esirable <200 mg/dLBorderline high cholesterol 200-239 mg/dLHigh cholesterol >=240 mg/dLRecommendations of the NCEP Adult Treatment Panel for the following risk-cutoff thresholds for the [place] population. Triglycerides measurementOrd ered By: Anshul Lemus on 01-05-2025 Triglyceride [Mass/Vol] 88 mg/dL <199 [facility] Comment on above: The drugs N-Acetylcy steine and Metamizole may falsely depress this assay. Normal range: <150 mg/dLBorderline High: 150-199 mg/dLHigh: 200-499 mg/dLVery High: >500 mg/dL 12 Lead EKGon 01-04-2025 12 Lead EKG [facility] Cardiovascular Services [address] [place] [address] 12 Lead EKG 01/04/25 0734 MR#: [id number] Acct: [id number] Name: CARLO MEDINA Rep #: [id number] : 1980 44 From: Clark Almaraz MD Attending Dr: Dr. Anshul Lemus DO Status: ADM IN Ordering Dr: Deborah Penaloza DO Date: 01/04/25 Location: [facility] Sex: M AA Admitted: 01/04/25 Test Reason [...] ECG Reconfirmed by CLARK ALMARAZ MD ([id number]), editorial writer GRACE KIDD ([id number]) on 01/06/2025 6:44:03 AM Referred By: Confirmed By: CLARK ALMARAZ MD 01/06/25 0644 Date Clark Almaraz MD CC: Dr. Deborah Penaloza DO; Dr. Anshul Lemus DO; No Primary Care Physician Signed Normal [facility] Abdomen Limitedon 01-04-2025 Abdomen Limited [facility] Imaging Services [address] [place], [place] [address] Abdomen Limited MR#: [id number] Acct: [id number] Name: CARLO MEDINA Rep #: [id number] : 1980 M 44 From: Jamal Ford MD PCP: Care Physician,No Primary Status: REG ER Study: Abdomen Limited Date of Exam: 01/04/25 Exam# [id number] Ordering Dr: Deborah Penaloza DO EXAM: US Abdomen Limited, Right Upper Quadrant CLINICAL INDICATION: ELEVATED LIVER ENZYMES AND BILI TECHNIQUE: Real-time ultrasound of the right upper quadrant with image documentation. COMPARISON: No relevant prior studies available. FINDINGS: LIVER: Liver measures up to 15.9 cm. Fatty infiltration of the liver. No intrahepatic bile duct dilation. GALLBLADDER: Negative Melendez's sign was reported by the clinical trials assistant. No gallstones. COMMON BILE DUCT: Unremarkable as [...] Fatty infiltration of the liver. Reading Location: [facility] CC: Dr. Deborah Penaloza DO; No Primary Care Physician Paraprofessional Aide: Signed Normal [facility] Absolute lymphocyte countOrd ered By: Deborah Penaloza on 01-04-2025 Lymphocytes Auto (Unsp spec) [#/Vol] 1.88 10*3/uL 0.83-4.51 [facility] Absolute neutrophil countOrd ered By: Deborah Penaloza on 01-04-2025 Neutrophils (Bld) [#/Vol] 3.7 10*3/uL 2.0-7.7 [facility] Anion gap in Serum or Plasma Ordered By: Deborah Penaloza on 01-04-2025 Anion gap [Moles/Vol] 14 mmol/L 5-[address] [facility] Automated lymphocyte count a s percentage of total leukocytesOrdered By: Deborah Penaloza on 01-04-2025 Lymphocytes/100 WBC Auto (Unsp spec) 30.6 % - [facility] BUN/creatinine ratioOrdered By: Deborah Penaloza on 01-04-2025 Urea nitrogen/Creatinine [Mass ratio] 14.9 mg/mg - [facility] Basic Metabolic Profile (BMP )on 01-04-2025 BUN/CRE 14.9 RATIO Normal - [facility] Comment on above: Performed By: #### L 500.4050 #### [facility] [address] [place], [address] Calcium [Mass/Vol] 9.0 mg/dL Normal 7.6-11.0 [facility] Comment on above: Performed By: #### L 500.4050 #### [facility] [address] [place], [address] Chloride [Moles/Vol] 105 mmol/L Normal 98-108 [facility] Comment on above: Performed By: #### L 500.4050 #### [facility] [address] [place], [address] CO2 [Moles/Vol] 25.2 mmol/L Normal 21.0-32.0 [facility] Comment on above: Performed By: #### L 500.4050 #### [facility] [address] [place], [address] Creatinine [Mass/Vol] 2.03 mg/dL High 0.70-1.[address] [facility] Comment on above: Performed By: #### L 500.4050 #### [facility] [address] [place], [address] ECRCL 51.39 ml/min Normal 50-250 [facility] Comment on above: Performed By: #### L 500.4050 #### [facility] [address] [place], [address] GAP 14 Normal 5-15 [facility] Comment on above: Performed By: #### L 500.4050 #### [facility] [address] [place], [address] GFR/1.73 sq M.predicted among non-blacks MDRD (S/P/Bld) [Vol rate/Area] 40 mL/min/{1.73_m2} Low >60 [facility] Comment on above: Result Comment: mL/m in/1.73m2 CKD-EPI Creatinine Equation (2020) Performed By: #### L 500.4050 #### [facility] [address] [place], [address] Glucose [Mass/Vol] 97 mg/dL Normal 70-99 [facility] Comment on above: Performed By: #### L 500.4050 #### [facility] [address] [place], [address] Potassium [Moles/Vol] 3.7 mmol/L Normal 3.3-5.[address] [facility] Comment on above: Performed By: #### L 500.4050 #### [facility] [address] [place], [address] Sodium [Moles/Vol] 144 mmol/L Normal 133-145 [facility] Comment on above: Performed By: #### L 500.4050 #### [facility] [address] [place], [address] Urea nitrogen [Mass/Vol] 30 mg/dL High 4-19 [facility] Comment on above: Performed By: #### L 500.4050 #### [facility] [address] [place], [address] Basophil percentageOrdered B y: Deborah Penaloza on 01-04-2025 Basophils/100 WBC (Bld) 0.3 % 0-1 [facility] Bilirubin directOrdered By: Deborah Penaloza on 01-04-2025 Bilirubin.direct [Mass/Vol] 2.68 mg/dL High 0.00-0.30 [facility] Bilirubin, totalOrdered By: Deborah Penaloza on 01-04-2025 Bilirubin [Mass/Vol] 4.32 mg/dL High 0.00-1.30 [facility] CBC W/Diff, Automatedon Absolute Lymph 1.88 X10 3/uL Normal 0.83-4.51 [facility] Comment on above: Performed By: #### L 500.4050 #### [facility] [address] [place], [address] Absolute Neut 3.7 X10 3/uL Normal 2.0-7.7 [facility] Comment on above: Performed By: #### L 500.4050 #### [facility] [address] [place], [address] Basophils/100 WBC (Bld) 0.3 % Normal 0-1 [facility] Comment on above: Performed By: #### L 500.4050 #### [facility] [address] [place], [address] Eosinophils/100 WBC (Bld) 0.3 % Normal 0-5 [facility] Comment on above: Performed By: #### L 500.4050 #### [facility] [address] [place], [address] Erythrocyte distribution width (RBC) [Ratio] 15.0 % High 11.6-14.6 [facility] Comment on above: Performed By: #### L 500.4050 #### [facility] [address] [place], [address] Hematocrit (Bld) [Volume fraction] 40.6 % Normal 40-54 [facility] Comment on above: Performed By: #### L 500.4050 #### [facility] [address] [place], [address] Hemoglobin (Bld) [Mass/Vol] 12.9 g/dL Low 13.0-16.5 [facility] Comment on above: Performed By: #### L 500.4050 #### [facility] [address] [place], [address] IG% 0.200 Normal 0.0-0.9 [facility] Comment on above: Result Comment: IG% - Immature Granulocytes (promyelocytes, myelocytes and metamyelocytes) > 1% indicates that a LEFT SHIFT is Present. Performed By: #### L 500.4050 #### [facility] [address] [place], [address] Lymphocytes/100 WBC (Bld) 30.6 % Normal 19-41 [facility] Comment on above: Performed By: #### L 500.4050 #### [facility] [address] [place], [address] MCH (RBC) [Entitic mass] 33.1 pg High 27.0-32.0 [facility] Comment on above: Performed By: #### L 500.4050 #### [facility] [address] [place], [address] MCHC (RBC) [Mass/Vol] 31.8 g/dL Low 32-[address] [facility] Comment on above: Performed By: #### L 500.4050 #### [facility] [address] [place], [address] MCV (RBC) [Entitic vol] 104.1 fL High 80-94 [facility] Comment on above: Performed By: #### L 500.4050 #### [facility] [address] [place], [address] Monocytes/100 WBC (Bld) 9.1 % Normal 0-10 [facility] Comment on above: Performed By: #### L 500.4050 #### [facility] [address] [place], [address] Neutrophils/100 WBC (Bld) 59.5 % Normal 47-70 [facility] Comment on above: Performed By: #### L 500.4050 #### [facility] [address] [place], [address] Nucleated RBC (Bld) [#/Vol] 0.3 10*3/uL Normal 0-5 [facility] Comment on above: Performed By: #### L 500.4050 #### [facility] [address] [place], [address] Platelet mean volume (Bld) [Entitic vol] 10.4 fL Normal 6.2-12.0 [facility] Comment on above: Performed By: #### L 500.4050 #### [facility] [address] [place], [address] Platelets (Bld) [#/Vol] 219 10*3/uL Normal 150-450 [facility] Comment on above: Performed By: #### L 500.4050 #### [facility] [address] [place], [address] RBC (Bld) [#/Vol] 3.90 10*6/uL Low 4.6-6.2 [facility] Comment on above: Performed By: #### L 500.4050 #### [facility] [address] [place], [address] RDW SD 57.5 fl High 35.1-43.9 [facility] Comment on above: Performed By: #### L 500.4050 #### [facility] [address] [place], [address] WBC (Bld) [#/Vol] 6.2 10*3/uL Normal 4.4-11.0 [facility] Comment on above: Performed By: #### L 500.4050 #### [facility] [address] [place], [place], [address] Carbon dioxide, total [Moles /volume] in Central venous bloodOrdered By: Deborah Penaloza on 01-04-2025 CO2 [Moles/Vol] 25.2 mmol/L 21.0-32.0 [facility] Chest PA and Lateralon 01-04 Chest PA and Lateral [facility] Imaging Services [address] [place] [address] Chest PA and Lateral MR#: [id number] Acct: [id number] Name: CARLO MEDINA Rep #: [id number] : 1980 M 44 From: Jamal Ford MD PCP: Care Physician,No Primary Status: REG ER Study: Chest PA and Lateral Date of Exam: 01/04/25 Exam# [id number] Ordering Dr: Deborah Penaloza DO EXAM: XR Chest, 2 Views CLINICAL INDICATION: SOB TECHNIQUE: Frontal and lateral views of the chest. COMPARISON: No relevant prior studies available. FINDINGS: LUNGS AND PLEURAL SPACES: Bibasilar atelectasis or pneumonia. No pneumothorax. HEART: Unremarkable. No cardiomegaly. MEDIASTINUM: Unremarkable. Normal mediastinal contour. BONES/JOINTS: Unremarkable. No acute fracture. RAD/Chest PA and Lateral IMPRESSION: Bibasilar atelectasis or pneumonia. [facility] CC: Dr. Deborah Penaloza DO; No Primary Care Physician Paraprofessional Aide: Signed Normal [facility] Chloride assayOrdered By: Jacob Penaloza on 01-04-2025 Chloride [Moles/Vol] 105 mmol/L 98-108 [facility] Echo Complete W/ Contraston 01-04-2025 Echo Complete W/ Contrast [facility] [address] [place] [address] Echo Complete W/ Contrast 01/04/25 1507 MR#: [id number] Acct: [id number] Name: CARLO MEDINA Rep #: [id number] : 1980 44 From: Clark Almaraz MD Attending Dr: Dr. Anshul Lemus DO Status: ADM IN Ordering Dr: Anshul Lemus DO Date: 01/04/25 Location: [facility] Sex: M AA Admitted: 01/04/25 Reason For [...] No Primary Care Physician Date Dictated: 01/04/25 1507 Date Transcribed: 01/04/251843 Paraprofessional Aide: Signed Normal [facility] Echocardiogram study reportO rdered By: Clark Almaraz on 01-04-2025 Study report [facility] Cardiovascular Services [address] [place] [address] Echo Complete W/ Contrast 01/04/25 1507 MR#: [id number] Acct: [id number] Name: CARLO MEDINA Rep #:[id number] : 1980 44 From: Clark Torrez Attending Dr: Dr. Anshul Lemus, Status: ADM IN Ordering Dr: Anshul Lemus DO Date: Location: [facility] Sex: M AA Admitted: 01/04/25 Reason For [...] Anshul Lemus Performed By: Amrita Vail RDCS 01/04/25 2989 Date _ Clark Almaraz MD CC: Dr. Anshul Lemus, DO; No Primary Care Physician ~ Date Dictated: 01/04/25 1507 Date Transcribed: 01/04/251843 Paraprofessional Aide: Signed [facility] Work Phone: Emergency Department Summary on 01-04-2025 Emergency Department Summary [facility] Medical Records Department [address] [place] [address] Emergency Department Summary 01/04/25 MR#: [id number] Acct: [id number] Name: CARLO MEDINA Rep #: [id number] : 1980 44 From: Deborah Penaloza DO PCP: Care Physician,No Primary Status:ADM IN Location: [place] [address] HPI History of Present Illness Chief Complaint: [...] states he normally receives his care through [facility] because of his insurance but has had a hard time following up and getting to appointments because of transportation and the distance. States he has been compliant with his medications. Is in the process of trying to establish down here in [place]. Denies any chest pain. Denies any fever or chills. Denies any change in urination. Patient does not know what triggered his fluid overload. Note from inpatient encounter at [facility] on 10/26/2024 she is at patient has [...] discharged home . Reported ejection fraction 15%. [facility] Medical History (Updated 01/04/25 @ 16:15 by [...] Nasal Cannula (more content not included)... Normal [facility] Eosinophil percentageOrdered By: Deborah Penaloza on 01-04-2025 Eosinophils/100 WBC (Bld) 0.3 % 0-5 [facility] Erythrocyte distribution wid th ratioOrdered By: Deborah Penaloza on 01-04-2025 Erythrocyte distribution width (RBC) [Ratio] 15.0 % High 11.6-14.6 [facility] Erythrocyte distribution wid th standard deviationOrdered By: Deborah Penaloza on 01-04-2025 Erythrocyte distribution width (RBC) [Ratio] 57.5 fl High 35.1-43.9 [facility] Glomerular filtration rate ( GFR) estimation/1.73 sq m using serum, plasma, or whole bOrdered By: Deborah Penaloza on 01-04-2025 GFR/1.73 sq M.predicted among non-blacks MDRD (S/P/Bld) [Vol rate/Area] 40 mL/min/{1.73_m2} Low >60 [facility] Comment on above: mL/min/1.73m2 CKD-EP I Creatinine Equation (2020) H AND P Exam - [facility] 01-04-2025 H&P Exam - Hospitalist [facility] Medical Records Department [address] [place] [address] H P Exam - Hospitalist 01/04/25 1351 MR#: [id number] Acct: [id number] Name: CARLO MEDINA Pedro Rep #: [id number] : 1980 44 From: Anshul Lemus DO PCP: Care Physician,No Primary Status:ADM IN Location: [facility] [id number] HPI - General General Date of Service: [...] time. Has had numerous hospitalizations over at [facility] [place] and recently was over at [facility] in September. It is documented throughout his charts at [facility] as well as [facility] that he has a history of noncompliance. [...] still wants time to think about it. [facility] Medical History (Updated 01/04/25 @ 14:[address] Anshul Lemus, DO) CKD (chronic kidney disease) Cardiomyopathy Left [...] Mean 8 (more content not included)... Normal [facility] Hematocrit Auto (Bld) [Volum e fraction]Ordered By: Deborah Penaloza on 01-04-2025 Hematocrit (Bld) [Volume fraction] 40.6 % 40-54 [facility] Hemoglobin measurementOrdere d By: Deborah Penaloza on 01-04-2025 Hemoglobin (Bld) [Mass/Vol] 12.9 g/dL Low 13.0-16.5 [facility] Immature granulocytes/100 WB C Auto (Bld)Ordered By: Deborah Penaloza on 01-04-2025 Immature granulocytes/100 WBC (Bld) 0.200 % 0.0-0.9 [facility] Comment on above: IG% - Immature Granu locytes (promyelocytes, myelocytes and metamyelocytes) > 1% indicates that a LEFT SHIFT is Present. L499.0042on 01-04-2025 Trop T High Sen 42 ng/L High <=22 [facility] Comment on above: Performed By: #### L 499.0042 #### [facility] [address] [place], [address] L499.0043on 01-04-2025 Trop T High Sen 45 ng/L High <=22 [facility] Comment on above: Performed By: #### L 500.4050, L100.0100 #### [facility] [address] [place], [address] L501.4021on 01-04-2025 Trop T High Sen 45 ng/L High <=22 [facility] Comment on above: Performed By: #### L 501.4021 #### [facility] [address] [place], [address] L503.7505on 01-04-2025 Natriuretic peptide B (Bld) [Mass/Vol] 24391 pg/mL High <=450 [facility] Comment on above: Result Comment: Hear t Failure Unlikely: < 300 pg/mL Heart Failure Likely < 50 Years: > 450 pg/mL 50-75 Years: > 900 pg/mL >75 Years: > 1800 pg/mL Performed By: #### L 500.4050 #### [facility] [address] [place], [address] Laboratory - Chemistry and C hemistry - challengeOrdered By: Deborah Penaloza on 01-04-2025 AST [Catalytic activity/Vol] 28 U/L <38 [facility] Lipaseon 01-04-2025 Lipase [Catalytic activity/Vol] 15 U/L Normal 13-75 [facility] Comment on above: Result Comment: Jt savage note: LIPASE revised reference range effective 22. New Lipase methodology. Expected to produce lower values than the previous assay method. NEW Reference Range: 13 - 75 U/L Performed By: #### L 500.4050 #### [facility] [address] [place], [address] Lipase measurementOrdered By : Deborah Penaloza on 01-04-2025 Lipase [Catalytic activity/Vol] 15 U/L 13-75 [facility] Comment on above: Please note:LIPASE r evised reference range effective 22. New Lipase methodology. Expected to produce lower values than the previous assay method. NEW Reference Range: 13 - 75 U/L Liver Profileon 01-04-2025 Albumin [Mass/Vol] 3.6 g/dL Normal 3.5-5.0 [facility] Comment on above: Performed By: #### L 500.4050 #### [facility] [address] [place], [address] ALK PHOS 743 U/L High 40-129 [facility] Comment on above: Performed By: #### L 500.4050 #### [facility] [address] [place], [address] ALT [Catalytic activity/Vol] 22 U/L Normal <=46 [facility] Comment on above: Performed By: #### L 500.4050 #### [facility] [address] [place], [address] AST [Catalytic activity/Vol] 28 U/L Normal <=37 [facility] Comment on above: Performed By: #### L 500.4050 #### [facility] [address] [place], [address] Bilirubin [Mass/Vol] 4.32 mg/dL High 0.00-1.30 [facility] Comment on above: Performed By: #### L 500.4050 #### [facility] [address] [place], [address] Bilirubin.direct [Mass/Vol] 2.68 mg/dL High 0.00-0.30 [facility] Comment on above: Performed By: #### L 500.4050 #### [facility] [address] [place], [address] Globulin (S) [Mass/Vol] 3.2 g/dL Normal 2.2-4.2 [facility] Comment on above: Performed By: #### L 500.4050 #### [facility] [address] [place], [address] T PROT 6.8 g/dL Normal 5.9-8.4 [facility] Comment on above: Performed By: #### L 500.4050 #### [facility] [address] [place], [address] MCV (mean corpuscular volume ) determinationOrdered By: Deborah Penaloza on 01-04-2025 MCV (RBC) [Entitic vol] 104.1 fL High 80-94 [facility] [facility] Mean corpuscular hemoglobin (MCH) determinationOrdered By: Deborah Penaloza on 01-04-2025 MCH (RBC) [Entitic mass] 33.1 pg High 27.0-32.0 [facility] Mean corpuscular hemoglobin concentration (MCHC) determinationOrdered By: Deborah Penaloza on 01-04-2025 MCHC (RBC) [Mass/Vol] 31.8 g/dL Low 32-[address] [facility] Mean platelet volume determi nationOrdered By: Deborah Penaloza on 01-04-2025 Platelet mean volume (Bld) [Entitic vol] 10.4 fL 6.2-12.0 [facility] Monocyte percentageOrdered B y: Deborah Penaloza on 01-04-2025 Monocytes/100 WBC (Bld) 9.1 % 0-10 [facility] Natriuretic peptide.B prohor justin N-Terminal [Mass/volume] in Serum or PlasmaOrdered By: Deborah Penaloza on 01-04-2025 Natriuretic peptide.B prohormone N-Terminal [Mass/Vol] 71029 pg/mL High <450 [facility] Comment on above: Heart Failure Unlike ly: < 300 pg/mLHeart Failure Likely< 50 Years: > 450 pg/mL50-75 Years: > 900 pg/mL>75 Years: > 1800 pg/mL Neutrophil percentageOrdered By: Deborah Penaloza on 01-04-2025 Neutrophils/100 WBC (Bld) 59.5 % 47-70 [facility] Nucleated red blood cell per centageOrdered By: Deborah Penaloza on 01-04-2025 Nucleated RBC/100 WBC (Bld) [Ratio] 0.3 % 0-5 [facility] Platelet countOrdered By: Jacob Penaloza on 01-04-2025 Platelets (Bld) [#/Vol] 219 10*3/uL 150-450 [facility] Potassium measurement (mass/ volume)Ordered By: Deborah Penaloza on 01-04-2025 Potassium (Unsp spec) [Mass/Vol] 3.7 mmol/L 3.3-5.1 [facility] RBC Auto (Bld) [#/Vol]Ordere d By: Deborah Penaloza on 01-04-2025 RBC (Bld) [#/Vol] 3.90 10*6/uL Low 4.6-6.2 [facility] Serum creatinine measurement (mass/volume)Ordered By: Deborah Penaloza on 01-04-2025 Creatinine [Mass/Vol] 2.03 mg/dL High 0.70-1.[address] [facility] Serum globulin measurementOr dered By: Deborah Penaloza on 01-04-2025 Globulin (S) [Mass/Vol] 3.2 g/dL 2.2-4.2 [facility] Serum glucose measurement (m ass/volume)Ordered By: Deborah Penaloza on 01-04-2025 Glucose [Mass/Vol] 97 mg/dL 70-99 [facility] Serum or plasma alanine de paz otransferase (ALT) measurementOrdered By: Deborah Penaloza on 01-04-2025 ALT [Catalytic activity/Vol] 22 U/L <47 [facility] Serum or plasma albumin fidel urement (mass/volume)Ordered By: Deborah Penaloza on 01-04-2025 Albumin [Mass/Vol] 3.6 g/dL 3.5-5.0 [facility] Serum or plasma alkaline nick sphatase measurementOrdered By: Deborah Penaloza on 01-04-2025 ALP [Catalytic activity/Vol] 743 U/L High 40-129 [facility] Serum or plasma calcium fidel urement (mass/volume)Ordered By: Deborah Penaloza on 01-04-2025 Calcium [Mass/Vol] 9.0 mg/dL 7.6-11.0 [facility] Serum or plasma urea nitroge n measurement (mass/volume)Ordered By: Deborah Penaloza on 01-04-2025 Urea nitrogen [Mass/Vol] 30 mg/dL High 4-19 [facility] Sodium levelOrdered By: Russell Penaloza on 01-04-2025 Sodium [Moles/Vol] 144 mmol/L 133-145 [facility] Total proteinOrdered By: Janette Penaloza on 01-04-2025 Protein [Mass/Vol] 6.8 g/dL 5.9-8.4 [facility] Troponin T.cardiac [Mass/vol ume] in Serum or Plasma by High sensitivity methodOrdered By: Deborah Penaloza on 01-04-2025 Troponin T.cardiac High sensitivity method [Mass/Vol] 45 ng/L High <22 [facility] Troponin T.cardiac High sensitivity method [Mass/Vol] 42 ng/L High <22 [facility] Troponin T.cardiac High sensitivity method [Mass/Vol] 45 ng/L High <22 [facility] White blood cell (WBC) count Ordered By: Deborah Penaloza on 01-04-2025 WBC (Bld) [#/Vol] 6.2 10*3/uL 4.4-11.0 [facility] Telephone Encounteron 2024 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 Interface Message Text Last visit with PCP (YUVAL GAYLE) was 09/17/2024 No future appointment with PCP (YUVAL GAYLE) Thank you. Normal [facility] Telephone Encounteron 2024 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 Interface Message Text Normal [facility] 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 Interface Message Text Requested Prescriptions Pending Prescriptions Disp Refills Apixaban (ELIQUIS) 5 MG tablet 28 Tablet 0 Sig: Take 1 Tablet by mouth 2 times daily. Last visit with PCP (YUVAL GAYLE) was 09/17/2024 No future appointment with PCP (YUVAL GAYLE) Normal [facility] Telephone Encounteron 2024 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 Interface Message Text No response letter printed and mailed to patient Normal [facility] Telephone Encounteron 2024 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 Interface Message Text Normal [facility] Telephone Encounteron 2024 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 Interface Message Text Normal [facility] Telephone Encounteron 2024 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 Interface Message Text Normal [facility] Telephone Encounteron 2024 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 Interface Message Text Normal [facility] Telephone Encounteron 2024 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 Interface Message Text Normal [facility] Progress Noteson 10-26-2024 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 Interface Message Text Normal [facility] 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 Interface Message Text Discharge instructions reviewed with patient and significant other at bedside. This RN stressed importance of medication compliance and adherence to medication regimen. Significant other verbalized understanding, pt silent but nodded head. Normal [facility] 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 Interface Message Text Normal [facility] 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 Interface Message Text Pt currently refusing all due medications d/t c/o feeling nauseated. This RN offered reaching out to provider for antiemetic. Pt declines. Pt instructed to let this RN know when he feels ready to take PO medications, pt agrees. Will follow up. Normal [facility] Assessment AND Plan Noteon 0 10-25-2024 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 Interface Message Text Max creatinine this stay 3.2, down trending to 1.46 which appears to be better than baseline - avoid nephrotoxic agents - repeat bmp as patient will allow Normal [facility] 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 Interface Message Text No leukocytosis, afebrile, stable on room air, procal elevated to 16.8 on admission Given recent hospitalization, treating for HAP - completed course of linezolid and cipro today 10/24 Normal [facility] 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 Interface Message Text - apixaban 5 mg po bid Normal [facility] 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 Interface Message Text Level 3.2 10/21 - he declined potassium PO and IV - BMP as patient will allow Normal [facility] 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 Interface Message Text Level 1.5 10/21 - only agreeable to mag oxide - repeat level in am Normal [facility] 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 Interface Message Text With hyperbili - liver clinic as an outpatient - [facility] when patient willing Normal [facility] 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 Interface Message Text Normal [facility] BASIC METABOLIC PANELon 04-2 Anion gap [Moles/Vol] 20 mmol/L Normal 10-20 [facility] Comment on above: Performed By: #### Kelly Simon, HEPATIC, MG ####[facility] [id number] [place], [place], Calcium [Mass/Vol] 7.7 mg/dL Low 8.6-10.3 [facility] Comment on above: Performed By: #### Kelly Simon, HEPATIC, MG ####[facility] [id number] [place], [place], Chloride [Moles/Vol] 88 mmol/L Low 98-107 [facility] Comment on above: Performed By: #### Kelly HGissel, HEPATIC, MG ####[facility] [id number] [place], [place], CO2 [Moles/Vol] 30 mmol/L Normal 21-31 [facility] Comment on above: Performed By: #### Kelly HGissel, HEPATIC, MG ####[facility] [id number] [place], [place], Creatinine [Mass/Vol] 2.15 mg/dL High 0.70-1.30 [facility] Comment on above: Performed By: #### Kelly H8, HEPATIC, MG ####[facility] [id number] [place], [place], ESTIMATED GFR (CKD-EPI) 38 mL/min/1.73sqm Low >=60 [facility] Comment on above: Result Comment: 2021 CKD EPI Equation using Creatinine without RaceComment: Estimated glomerular filtration rate (eGFR) is calculated without a race coefficient. Values should be interpreted in the context of the patient's full clinical presentation.Reference:1. Berny Mendoza, Melonie M, Alecia BABCOCK, et al.. A Unifying Approach for GFR Estimation: Recommendations of the NKF-ASN Task Force on Reassessing the Inclusion of Race in Diagnosing Kidney Disease. [place] Journal of Kidney Diseases 202;79(2):268-88.e1.2. N Engl J Med 1 Vol. 385 Issue 19 Pages [phone] Performed By: #### C H8, HEPATIC, MG ####[facility] [id number] [place], [place], Glucose [Mass/Vol] 130 mg/dL High 74-109 [facility] Comment on above: Performed By: #### C H8, HEPATIC, MG ####[facility] [id number] [place], [place], Potassium [Moles/Vol] 4.0 mmol/L Normal 3.5-5.0 [facility] Comment on above: Performed By: #### C H8, HEPATIC, MG ####[facility] [id number] [place], Sodium [Moles/Vol] 134 mmol/L Low 136-145 [facility] Comment on above: Performed By: #### C H8, HEPATIC, MG ####[facility] [id number] [place], [place], Urea nitrogen [Mass/Vol] 60 mg/dL High 7-25 [facility] Comment on above: Performed By: #### C H8, HEPATIC, MG ####[facility] [id number] [place], [place], Basic metabolic 2000 panelon 10-25-2024 Anion [...] Inclusion of Race in Diagnosing Kidney Disease. [place] Journal of Kidney Diseases 2021;79(2):268-88.e1. 2. N Engl J Med 2020 Vol. 385 Issue 19 Pages [phone] Glucose [Mass/Vol] 130 mg/dL High 74 - [...] (Bld) [#/Vol] 0.07 10*3/uL Normal 0.00-0.20 [facility] Comment on above: Performed By: #### C BCDSAT ####S PATHOLOGY [id number] [place], [place], Basophils/100 WBC (Bld) 0.5 % Normal <=1.9 [facility] Comment on above: Performed By: #### C BCDSAT ####S PATHOLOGY [id number] [place], [place], Eosinophils (Bld) [#/Vol] 0.02 10*3/uL Normal 0.00-0.70 [facility] Comment on above: Performed By: #### C BCDSAT ####[facility] PATHOLOGY [id number] [place], [place], Eosinophils/100 WBC (Bld) 0.1 % Normal 0.1-4.0 [facility] Comment on above: Performed By: #### C GARRETTDSAT ####[facility] PATHOLOGY [id number] [place] [address], Erythrocyte distribution width (RBC) [Ratio] 16.9 % High 11.5-14.5 [facility] Comment on above: Performed By: #### C GARRETTDSAT ####[facility] PATHOLOGY [id number] [place] [address], Hematocrit (Bld) [Volume fraction] 36.8 % Low 41.0-53.0 [facility] Comment on above: Performed By: #### C MARYAT ####[facility] PATHOLOGY [id number] [place] [address], Hemoglobin (Bld) [Mass/Vol] 12.3 g/dL Low 13.9-16.3 [facility] Comment on above: Performed By: #### C MARYAT ####[facility] PATHOLOGY [id number] [place] [address], Lymphocytes (Bld) [#/Vol] 1.95 10*3/uL Normal 1.00-4.80 [facility] Comment on above: Performed By: #### C BCDSAT ####[facility] PATHOLOGY [id number] [place] [address], Lymphocytes/100 WBC (Bld) 13.8 % Low 24.0-44.0 [facility] Comment on above: Performed By: #### C MARYAT ####[facility] PATHOLOGY [id number] [place] [address], MCH (RBC) [Entitic mass] 34.9 pg High 26.0-34.0 [facility] Comment on above: Performed By: #### C MARYAT ####[facility] PATHOLOGY [id number] [place] [address], MCHC (RBC) [Mass/Vol] 33.5 g/dL Normal 32.0-35.9 [facility] Comment on above: Performed By: #### Kelly HERNANDEZAT ####[facility] PATHOLOGY [id number] [place], [place], MCV (RBC) [Entitic vol] 104 fL High 80-100 [facility] Comment on above: Performed By: #### Kelly HERNANDEZAT ####[facility] PATHOLOGY [id number] [place] [address], Monocytes (Bld) [#/Vol] 1.04 10*3/uL High 0.20-1.00 [facility] Comment on above: Performed By: #### Kelly HERNANDEZAT ####[facility] PATHOLOGY [id number] [place], [place], Monocytes/100 WBC (Bld) 7.3 % Normal 2.0-11.0 [facility] Comment on above: Performed By: #### Kelly HERNANDEZAT ####[facility] PATHOLOGY [id number] [place] [address], Neutrophils (Bld) [#/Vol] 11.07 10*3/uL High 1.50-8.00 [facility] Comment on above: Performed By: #### Kelly HERNANDEZAT ####[facility] PATHOLOGY [id number] [place], Neutrophils/100 WBC (Bld) 78.2 % High 31.0-76.0 [facility] Comment on above: Performed By: #### Kelly HERNANDEZAT ####[facility] PATHOLOGY [id number] [place], Platelet mean volume (Bld) [Entitic vol] 9.2 fL Normal 7.5-11.2 [facility] Comment on above: Performed By: #### Kelly HERNANDEZAT ####[facility] PATHOLOGY [id number] [place], Platelets (Bld) [#/Vol] 226 10*3/uL Normal 150-400 [facility] Comment on above: Performed By: #### Kelly HERNANDEZAT ####S PATHOLOGY [id number] [place], RBC (Bld) [#/Vol] 3.54 10*6/uL Low 4.50-5.90 [facility] Comment on above: Performed By: #### Kelly HERNANDEZAT ####S PATHOLOGY [id number] [place], WBC (Bld) [#/Vol] 14.1 10*3/uL High 4.5-11.5 [facility] Comment on above: Performed By: #### Kelly HERNANDEZAT ####[facility] PATHOLOGY [id number] [place], [place], Consultson 10-25-2024 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 Interface Message Text Normal [facility] 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 Interface Message Text Normal [facility] HEPATIC FUNCTION PANELon Albumin [Mass/Vol] 3.1 [...] [Mass/Vol] 6 g/dL 6.0 - 8.3 g/dL [facility] Albumin [Mass/Vol] 3.1 g/dL Low 3.5-5.7 [facility] Comment on above: Performed By: #### Kelly Simon, HEPATIC, MG ####[facility] PATHOLOGY [id number] [place], [place], ALK 393 IU/L High 34-104 [facility] Comment on above: Performed By: #### Kelly H8, HEPATIC, MG ####[facility] [id number] [place], ALT [Catalytic activity/Vol] 54 U/L High 7-52 [facility] Comment on above: Performed By: #### C H8, HEPATIC, MG ####[facility] [id number] [place], AST [Catalytic activity/Vol] 48 U/L High 13-39 [facility] Comment on above: Performed By: #### C H8, HEPATIC, MG ####[facility] [id number] [place], Bilirubin [Mass/Vol] 7.3 mg/dL High 0.3-1.0 [facility] Comment on above: Performed By: #### C H8, HEPATIC, MG ####[facility] [id number] [place], Bilirubin.direct [Mass/Vol] 3.77 mg/dL High 0.03-0.18 [facility] Comment on above: Performed By: #### Kelly Simon, HEPATIC, MG ####[facility] [id number] [place], Protein [Mass/Vol] 6.0 g/dL Normal 6.0-8.3 [facility] Comment on above: Performed By: #### Kelly HGissel, HEPATIC, MG ####[facility] [id number] [place], [place], MAGNESIUMon 10-25-2024 Interpretation and review of laboratory results Normal [facility] Magnesium [Mass/Vol] 2.1 mg/dL 1.9 - 2 .7 mg/dL [facility] [Mass/Vol] 2.1 mg/dL Normal 1.9-2.7 [facility] Comment on above: Performed By: #### C H8, HEPATIC, MG ####[facility] [id number] [place], [place], No Panel Informationon 10-25 Interpretation and review of laboratory results Abnormal [facility] Progress Noteson 10-25-2024 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 Interface Message Text Normal [facility] 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 Interface Message Text Normal [facility] 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 Interface Message Text Normal [facility] XR CHEST AP OR PA 1 VIEWon 0 10-25-2024 XR CHEST AP OR PA 1 VIEW Normal [facility] XR Chest Single viewon 10-25 EXAMINATION: [...] at the left lung apex. MACRO: None [facility] Radiology Study observation (narrative) [employer] XR Chest Single viewOrdered By: Rosario William on 10-25-2024 [employer] [facility] Phone: Assessment AND Plan Noteon 0 10-24-2024 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 Interface Message Text With [facility] outpatient - [facility] when patient willing Normal [facility] [employer] [facility] 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 Interface Message Text Max creatinine this stay 3.2, down trending to 1.46 which appears to be better than baseline - avoid nephrotoxic agents - repeat bmp as patient will allow Normal [facility] [employer] [facility] 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 Interface Message Text Normal [facility] 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 Interface Message Text - apixaban 5 mg po bid Normal [facility] 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 Interface Message Text Level 3.2 10/21 - he declined potassium PO and IV again today - BMP in am Normal [facility] [facility] 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 Interface Message Text Level 1.5 10/21 - only agreeable to mag oxide - repeat level in am Normal [facility] [facility] 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 Interface Message Text No leukocytosis, afebrile, stable on room air, procal elevated to 16.8 on admission Given recent hospitalization, treating for HAP - complete course of linezolid and cipro today () Normal [facility] Progress Noteson 10-24-2024 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 Interface Message Text Normal [facility] [facility] Assessment AND Plan Noteon 0 10-23-2024 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 Interface Message Text Level 3.2 10/21 - he declined potassium PO and IV again today - BMP in am Normal [facility] 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 Interface Message Text With [facility] as an outpatient - [facility] when patient willing Normal [facility] [employer] [facility] 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 Interface Message Text Level 1.5 10/21 - only agreeable to mag oxide - repeat level in am Normal [facility] 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 Interface Message Text - apixaban 5 mg po bid Normal [facility] [employer] [facility] 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 Interface Message Text Normal [facility] 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 Interface Message Text No leukocytosis, afebrile, stable on room air, procal elevated to 16.8 on admission Given recent hospitalization, treating for HAP - complete course of linezolid and cipro today () Normal [facility] 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 Interface Message Text Max creatinine this stay 3.2, down trending to 1.46 which appears to be better than baseline - avoid nephrotoxic agents - repeat bmp as patient will allow Normal [facility] Progress Noteson 10-23-2024 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 Interface Message Text Normal [facility] 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 Interface Message Text Normal [facility] [facility] 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 Interface Message Text Normal [facility] [facility] Assessment AND Plan Noteon 0 10-22-2024 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 Interface Message Text With hyperbili - liver clinic as an outpatient - [facility] when patient willing Normal [facility] [employer] [facility] 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 Interface Message Text Echo with LVEF 15% - Bumex 1 mg daily - will restart today - isordil 20 mg tid - patient refusing - patient declining further medication titration - monitor on tele if agreeable - follow up with heart failure as an outpatient - continue GOC discussions Normal [facility] [facility] 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 Interface Message Text No leukocytosis, afebrile, stable on room air, procal elevated to 16.8 on admission Given recent hospitalization, treating for HAP - continue linezolid and cipro (d6/7) Normal [facility] 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 Interface Message Text Level 1.5 10/21 - only agreeable to mag oxide - repeat level in am Normal [facility] 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 Interface Message Text Level 3.2 10/21 - he declined potassium PO and IV again today - BMP in am Normal [facility] 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 Interface Message Text - apixaban 5 mg po bid Normal [facility] 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 Interface Message Text Max creatinine this stay 3.2, down trending to 1.46 which appears to be better than baseline - avoid nephrotoxic agents - repeat bmp in am Normal [facility] Consultson 10-22-2024 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 Interface Message Text Normal [facility] Progress Noteson 10-22-2024 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 Interface Message Text Normal [facility] [facility] 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 Interface Message Text SOCIAL WORK Per interdisciplinary rounds, pt is not medically cleared for discharge. NIR is 10/23/24. Plan is for pt to discharge home with no needs. SW will continue to follow. No weekend SW needs. Selena Feliz INSPECTOR SUBASSEMBLY, SECURITY ADMINISTRATOR Inpatient Chargeback Specialist Normal [facility] 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 Interface Message Text Normal [facility] Assessment AND Plan Noteon 0 10-21-2024 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 Interface Message Text Echo with LVEF 15% - Bumex 1 mg daily on hold - consider restarting in am - isordil 20 mg tid - patient declining further medication titration - monitor on tele if agreeable - follow up with heart failure as an outpatient - continue GOC discussion Normal 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 Interface Message Text Level 1.5 this am - only agreeable to mag oxide - repeat level in am Normal 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 Interface Message Text - apixaban 5 mg po bid Normal 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 Interface Message Text Level 3.2 - he declined potassium PO and IV - BMP in am Normal 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 Interface Message Text With hyperbili - liver clinic as an outpatient - HFP in am Normal 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 Interface Message Text Max creatinine this stay 3.2, down trending to 1.46 which appears to be better than baseline - avoid nephrotoxic agents - repeat bmp in am Normal 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 Interface Message Text No leukocytosis, afebrile, stable on room air, procal elevated to 16.8 Given recent hospitalization, treating for HAP - continue linezolid and cipro Normal 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 Interface Message Text Managed in the cicu, at this time has resolved Normal [employer] BASIC METABOLIC PANELon 04-2 Anion gap [Moles/Vol] 17 mmol/L Normal 10-20 [employer] Comment on above: Performed By: #### H MG TICO, CH8 ####S PATHOLOGY [id number] [place], [place], Calcium [Mass/Vol] 7.7 mg/dL Low 8.6-10.3 [facility] [employer] [facility] Comment on above: Performed By: #### H MG TICO, CH8 ####S PATHOLOGY [id number] [place], [place], Chloride [Moles/Vol] 96 mmol/L Low 98-107 [employer] [facility] Comment on above: Performed By: #### H MG TICO, CH8 ####[facility] PATH[facility] [id number] [place], CO2 [Moles/Vol] 32 mmol/L High 21-31 [employer] [facility] Comment on above: Performed By: #### H MG TICO, CH8 ####S PATHOLOGY MOSSYPNILW4307 [place], [place], Creatinine [Mass/Vol] 1.46 mg/dL High 0.70-1.30 [facility] Comment on above: Performed By: #### MG NEPTALI CH8 ####S PATHOLOGY [id number] [place], ESTIMATED GFR (CKD-EPI) 60 mL/min/1.73sqm Normal >=60 [facility] Comment on above: Result Comment: 2020 [...] Inclusion of Race in Diagnosing Kidney Disease. [place] Journal of Kidney Diseases 2021;79(2):268-88.e1.2. N Engl J Med 1 Vol. 385 Issue 19 Pages [phone] Performed By: #### MG NEPTALI CH8 ####S PATHOLOGY [id number] [place], Glucose [Mass/Vol] 131 mg/dL High 74-109 [facility] Comment on above: Performed By: #### MG NEPTALI CH8 ####S PATHOLOGY [id number] [place], Potassium [Moles/Vol] 3.2 mmol/L Low 3.5-5.0 [facility] Comment on above: Performed By: #### MG NEPTALI, CH8 ####S PATHOLOGY [id number] [place], Sodium [Moles/Vol] 142 mmol/L Normal 136-145 [facility] Comment on above: Performed By: #### MG NEPTALI, CH8 ####[facility] PATH[facility]Y [id number] [place], Urea nitrogen [Mass/Vol] 52 mg/dL High 7-25 [facility] Comment on above: Performed By: #### H EPATIC, MG, CH8 ####[facility] PATHOLOGY [id number] [place], [phone] Basic metabolic 2000 panelon 10-21-2024 Anion gap [...] CKD-EPI (S/P/Bld) [Vol rate/Area] 60 - PINF [facility] Comment on above: 2020 [...] Inclusion of Race in Diagnosing Kidney Disease. [place] Journal of Kidney Diseases 202;79(2):268-88.e1. 2. N Engl J Med 2020 Vol. 385 Issue 19 Pages 1645-8380 Glucose [Mass/Vol] 131 mg/dL High 74 - [...] [facility] Platelet mean volume (Bld) [Entitic vol] 8.3 fL 7.5 - 11.2 fL [facility] Platelets (Bld) [#/Vol] 162 10*3/uL 150 - 400 K/uL [facility] RBC (Bld) [#/Vol] 3.9 10*6/uL Low [facility] WBC (Bld) [#/Vol] 9.7 10*3/uL 4.5 - 11.5 K/uL [facility] Basophils (Bld) [#/Vol] 0.02 10*3/uL Normal 0.00-0.20 [facility] Comment on above: Performed By: #### C BCDSAT ####[facility] PATHOLOGY [id number] [place], [place], Basophils/100 WBC (Bld) 0.2 % Normal <=1.9 [facility] Comment on above: Performed By: #### C BCDSAT ####[facility] PATHOLOGY [id number] [place], Eosinophils (Bld) [#/Vol] 0.02 10*3/uL Normal 0.00-0.70 [facility] Comment on above: Performed By: #### C BCDSAT ####[facility] PATHOLOGY [id number] [place], Eosinophils/100 WBC (Bld) 0.2 % Normal 0.1-4.0 [facility] Comment on above: Performed By: #### C BCDSAT ####[facility] PATHOLOGY [id number] [place] [address], Erythrocyte distribution width (RBC) [Ratio] 17.0 % High 11.5-14.5 [facility] Comment on above: Performed By: #### C BCDSAT ####[facility] PATHOLOGY [id number] [place], Hematocrit (Bld) [Volume fraction] 40.8 % Low 41.0-53.0 [facility] Comment on above: Performed By: #### C BCDSAT ####[facility] PATHOLOGY [id number] [place], Hemoglobin (Bld) [Mass/Vol] 13.8 g/dL Low 13.9-16.3 [facility] Comment on above: Performed By: #### C BCDSAT ####[facility] PATHOLOGY [id number] [place], Lymphocytes (Bld) [#/Vol] 0.84 10*3/uL Low 1.00-4.80 [facility] Comment on above: Performed By: #### C BCDSAT ####[facility] PATHOLOGY [id number] [place], Lymphocytes/100 WBC (Bld) 8.7 % Low 24.0-44.0 [facility] Comment on above: Performed By: #### C MARYAT ####[facility] PATHOLOGY [id number] [place], MCH (RBC) [Entitic mass] 35.2 pg High 26.0-34.0 [facility] Comment on above: Performed By: #### C MARYAT ####[facility] PATHOLOGY [id number] [place] [address], MCHC (RBC) [Mass/Vol] 33.7 g/dL Normal 32.0-35.9 [facility] Comment on above: Performed By: #### Kelly HERNANDEZAT ####[facility] PATHOLOGY [id number] [place] [address], MCV (RBC) [Entitic vol] 105 fL High 80-100 [facility] Comment on above: Performed By: #### Kelly HERNANDEZAT ####[facility] PATHOLOGY [id number] [place] [address], Monocytes (Bld) [#/Vol] 0.50 10*3/uL Normal 0.20-1.00 [facility] Comment on above: Performed By: #### Kelly HERNANDEZAT ####[facility] PATHOLOGY [id number] [place] [address], Monocytes/100 WBC (Bld) 5.1 % Normal 2.0-11.0 [facility] Comment on above: Performed By: #### Kelly HERNANDEZAT ####[facility] PATHOLOGY [id number] [place] [address], Neutrophils (Bld) [#/Vol] 8.32 10*3/uL High 1.50-8.00 [facility] Comment on above: Performed By: #### C MARYAT ####[facility] PATHOLOGY [id number] [place] [address], Neutrophils/100 WBC (Bld) 85.8 % High 31.0-76.0 [facility] Comment on above: Performed By: #### Kelly HERNANDEZAT ####[facility] PATHOLOGY [id number] [place] [address], [place], Platelet mean volume (Bld) [Entitic vol] 8.3 fL Normal 7.5-11.2 [facility] Comment on above: Performed By: #### C MARYAT ####[facility] PATHOLOGY [id number] [place], Platelets (Bld) [#/Vol] 162 10*3/uL Normal 150-400 [facility] Comment on above: Performed By: #### C MARYAT ####[facility] PATHOLOGY [id number] [place], RBC (Bld) [#/Vol] 3.90 10*6/uL Low 4.50-5.90 [facility] Comment on above: Performed By: #### C MARYAT ####[facility] PATHOLOGY [id number] [place], WBC (Bld) [#/Vol] 9.7 10*3/uL Normal 4.5-11.5 [facility] Comment on above: Performed By: #### C MARYAT ####[facility] PATHOLOGY [id number] [place], [place], Disruptive Behavior Progress Noteon 10-21-2024 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 Interface Message Text Normal [employer] HEPATIC FUNCTION PANELon Albumin [Mass/Vol] 3.1 [...] Albumin [Mass/Vol] 3.1 g/dL Low 3.5-5.7 [facility] Comment on above: Performed By: #### H TICO MG, CH8 ####S PATHOLOGY [id number] [place], [place], ALK 348 IU/L High 34-104 [facility] Comment on above: Performed By: #### MG NEPTALI, CH8 ####S PATHOLOGY [id number] [place], ALT [Catalytic activity/Vol] 43 U/L Normal 7-52 [facility] Comment on above: Performed By: #### MG NEPTALI, CH8 ####S PATHOLOGY [id number] [place], AST [Catalytic activity/Vol] 60 U/L High 13-39 [facility] Comment on above: Performed By: #### MG NEPTALI, CH8 ####S PATHOLOGY [id number] [place], Bilirubin [Mass/Vol] 6.4 mg/dL High 0.3-1.0 [facility] Comment on above: Performed By: #### MG NEPTALI, CH8 ####[facility] PATHOLOGY [id number] [place], Bilirubin.direct [Mass/Vol] 3.54 mg/dL High 0.03-0.18 [facility] Comment on above: Performed By: #### MG NEPTALI, CH8 ####[facility] PATHOLOGY [id number] [place], Protein [Mass/Vol] 6.3 g/dL Normal 6.0-8.3 [facility] Comment on above: Performed By: #### MG NEPTALI, CH8 ####S PATHOLOGY [id number] [place], MAGNESIUMon 10-21-2024 Magnesium [Mass/Vol] 1.5 mg/dL Low 1.9 - 2 .7 mg/dL [facility] Magnesium [Mass/Vol] 1.5 mg/dL Low 1.9-2.7 [facility] Comment on above: Performed By: #### MG NEPTALI, CH8 ####S PATHOLOGY [id number] [place], [place], No Panel Informationon 10-21 Interpretation and review of laboratory results Abnormal [facility] Progress Noteson 10-21-2024 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 Interface Message Text Normal 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 Interface Message Text Normal 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 Interface Message Text Patients potassium is 3.2. RN attempted to administer ordered potassium replacement. Patient refused medication. Pt educated on risks of not taking medication with a low potassium. Dr. Myers notified. Normal 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 Interface Message Text Per interdisciplinary rounds, GOC conversation to take place with pt today. SW will follow for outcome of this meeting. Yee Cassidy [facility] Inpatient Chargeback Specialist Normal 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 Interface Message Text Normal [facility] Transfer Noteon 10-21-2024 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 Interface Message Text Normal [facility] BASIC METABOLIC PANELon 09-29 Anion gap [Moles/Vol] 19 mmol/L Normal 10-20 [facility] Comment on above: Performed By: #### C H8, HEPATIC, MG ####S PATHOLOGY [id number] [place], Calcium [Mass/Vol] 8.4 mg/dL Low 8.6-10.3 [facility] Comment on above: Performed By: #### C H8, HEPATIC, MG ####[facility] PATH[facility] JEULHITRAX1302 [place], Chloride [Moles/Vol] 99 mmol/L Normal 98-107 [facility] Comment on above: Performed By: #### C H8, HEPATIC, MG ####[facility] PATHOLOGY [id number] [place], CO2 [Moles/Vol] 29 mmol/L Normal 21-31 [facility] Comment on above: Performed By: #### C H8, HEPATIC, MG ####[facility] PATHOLOGY [id number] [place], Creatinine [Mass/Vol] 2.20 mg/dL High 0.70-1.30 [facility] Comment on above: Performed By: #### C H8, HEPATIC, MG ####[facility] PATHOLOGY [id number] [place], ESTIMATED GFR (CKD-EPI) 36 mL/min/1.73sqm Low >=60 [facility] Comment on above: Result Comment: 2020 [...] Inclusion of Race in Diagnosing Kidney Disease. [place] Journal of Kidney Diseases 2021;79(2):268-88.e1.2. N Engl J Med 2020 Vol. 385 Issue 19 Pages [phone] Performed By: #### C H8, HEPATIC, MG ####[facility] PATHOLOGY [id number] [place], Glucose [Mass/Vol] 117 mg/dL High 74-109 [facility] Comment on above: Performed By: #### C H8, HEPATIC, MG ####[facility] PATHOLOGY [id number] [place], Potassium [Moles/Vol] 3.5 mmol/L Normal 3.5-5.0 [facility] Comment on above: Performed By: #### C H8, HEPATIC, MG ####[facility] PATHOLOGY [id number] [place], Sodium [Moles/Vol] 143 mmol/L Normal 136-145 [facility] Comment on above: Performed By: #### C H8, HEPATIC, MG ####[facility] PATHOLOGY [id number] [place], Urea nitrogen [Mass/Vol] 72 mg/dL High 7-25 [facility] Comment on above: Performed By: #### C H8, HEPATIC, MG ####[facility] PATHOLOGY [id number] [place], [place], Basic metabolic 2000 panelOr dered By: Jami Xie on 10-20-2024 Anion gap [Moles/Vol] 19 mmol/L 10 - 20 Met [facility] Calcium [Mass/Vol] 8.4 mg/dL Low 8.6 - [...] Inclusion of Race in Diagnosing Kidney Disease. [place] Journal of Kidney Diseases 202;79(2):268-88.e1. 2. N Engl J Med 1 Vol. 385 Issue 19 Pages 9057-6730 Glucose [Mass/Vol] 117 mg/dL High 74 - [...] (Bld) [#/Vol] 0.07 10*3/uL Normal 0.00-0.20 [facility] Comment on above: Performed By: #### C BCDSAT ####[facility] PATHOLOGY [id number] [place], Basophils/100 WBC (Bld) 0.6 % Normal <=1.9 [facility] Comment on above: Performed By: #### C BCDSAT ####[facility] PATHOLOGY [id number] [place], Eosinophils (Bld) [#/Vol] 0.02 10*3/uL Normal 0.00-0.70 [facility] Comment on above: Performed By: #### C BCDSAT ####[facility] PATHOLOGY [id number] [place] [address], Eosinophils/100 WBC (Bld) 0.2 % Normal 0.1-4.0 [facility] Comment on above: Performed By: #### C BCDSAT ####[facility] PATHOLOGY [id number] [place] [address], Erythrocyte distribution width (RBC) [Ratio] 17.2 % High 11.5-14.5 [facility] Comment on above: Performed By: #### C BCDSAT ####[facility] PATHOLOGY [id number] [place] [address], Hematocrit (Bld) [Volume fraction] 44.2 % Normal 41.0-53.0 [facility] Comment on above: Performed By: #### C BCDSAT ####[facility] PATHOLOGY [id number] [place], Hemoglobin (Bld) [Mass/Vol] 14.9 g/dL Normal 13.9-16.3 [facility] Comment on above: Performed By: #### C BCDSAT ####[facility] PATHOLOGY [id number] [place], Lymphocytes (Bld) [#/Vol] 0.95 10*3/uL Low 1.00-4.80 [facility] Comment on above: Performed By: #### C BCDSAT ####[facility] PATHOLOGY [id number] [place], Lymphocytes/100 WBC (Bld) 8.2 % Low 24.0-44.0 [facility] Comment on above: Performed By: #### C BCDSAT ####[facility] PATHOLOGY [id number] [place], MCH (RBC) [Entitic mass] 34.9 pg High 26.0-34.0 [facility] Comment on above: Performed By: #### C BCDSAT ####[facility] PATHOLOGY [id number] [place], MCHC (RBC) [Mass/Vol] 33.7 g/dL Normal 32.0-35.9 [facility] Comment on above: Performed By: #### C BCDSAT ####[facility] PATHOLOGY [id number] [place], MCV (RBC) [Entitic vol] 104 fL High 80-100 [facility] Comment on above: Performed By: #### C BCDSAT ####[facility] PATHOLOGY [id number] [place], Monocytes (Bld) [#/Vol] 0.60 10*3/uL Normal 0.20-1.00 [facility] Comment on above: Performed By: #### C BCDSAT ####[facility] PATHOLOGY [id number] [place], Monocytes/100 WBC (Bld) 5.2 % Normal 2.0-11.0 [facility] Comment on above: Performed By: #### C BCDSAT ####[facility] PATHOLOGY [id number] [place], Neutrophils (Bld) [#/Vol] 9.91 10*3/uL High 1.50-8.00 [facility] Comment on above: Performed By: #### C BCDSAT ####[facility] PATHOLOGY [id number] [place], Neutrophils/100 WBC (Bld) 85.8 % High 31.0-76.0 [facility] Comment on above: Performed By: #### C BCDSAT ####[facility] PATHOLOGY [id number] [place], Platelet mean volume (Bld) [Entitic vol] 8.5 fL Normal 7.5-11.2 [facility] Comment on above: Performed By: #### C BCDSAT ####S PATHOLOGY [id number] [place], Platelets (Bld) [#/Vol] 142 10*3/uL Low 150-400 [facility] Comment on above: Performed By: #### C BCDSAT ####[facility] [id number] [place], [place], RBC (Bld) [#/Vol] 4.27 10*6/uL Low 4.50-5.90 [facility] Comment on above: Performed By: #### C BCDSAT ####[facility] PATH[facility] [id number] [place], WBC (Bld) [#/Vol] 11.5 10*3/uL Normal 4.5-11.5 [facility] Comment on above: Performed By: #### C BCDSAT ####[facility] PATHOLOGY [id number] [place], Disruptive Behavior Progress Noteon 10-20-2024 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 Interface Message Text Normal [facility] 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 Interface Message Text Normal [facility] EKG 12 LEAD - PERFORMon 09-29 Diagnosis Sinus bradycardia Left atrial enlargement Right [...] wave Atrium by EKG 53 BPM Metr [place] P wave axis 70 degrees [facility] P-R Interval 154 ms [facility] Q-T interval 546 ms [facility] Q-T interval corrected 512 ms [facility] Q[facility] 226 degrees [facility] QRS duration 170 ms [facility] T wave axis 18 degrees [facility] HEPATIC FUNCTION PANELon Albumin [Mass/Vol] 3.3 g/dL Low 3.5 - 5.7 g/dL [facility] ALP [Catalytic activity/Vol] 359 U/L High [facility] ALT [Catalytic activity/Vol] 33 U/L [facility] AST [Catalytic activity/Vol] 50 U/L High [facility] Bilirubin [Mass/Vol] 7.9 mg/dL High 0.3 - 1 .0 mg/dL [facility] Bilirubin.direct [Mass/Vol] 4.05 mg/dL High 0.03 - 0.18 mg/dL [facility] Interpretation and review of laboratory results Abnormal [facility] Protein [Mass/Vol] 6.4 g/dL 6.0 - 8.3 g/dL [facility] Albumin [Mass/Vol] 3.3 g/dL Low 3.5-5.7 [facility] Comment on above: Performed By: #### Kelly Simon, HEPATIC, MG ####[facility] PATH[facility] [id number] [place], [place], ALK 359 IU/L High 34-104 [facility] Comment on above: Performed By: #### Kelly Simon, HEPATIC, MG ####S PATHOLOGY [id number] [place], ALT [Catalytic activity/Vol] 33 U/L Normal 7-52 [facility] Comment on above: Performed By: #### Kelly Simon, HEPATIC, MG ####[facility] PATH[facility] [id number] [place], AST [Catalytic activity/Vol] 50 U/L High 13-39 [facility] Comment on above: Performed By: #### Kelly Simon, HEPATIC, MG ####[facility] PATHOLOG[facility] [id number] [place], Bilirubin [Mass/Vol] 7.9 mg/dL High 0.3-1.0 [facility] Comment on above: Performed By: #### Kelly Simon, HEPATIC, MG ####[facility] PATH[facility] [id number] [place], Bilirubin.direct [Mass/Vol] 4.05 mg/dL High 0.03-0.18 [facility] Comment on above: Performed By: #### Kelly Simon, HEPATIC, MG ####[facility] PATHOLOGY [id number] [place], Protein [Mass/Vol] 6.4 g/dL Normal 6.0-8.3 [facility] Comment on above: Performed By: #### Kelly Simon, HEPATIC, MG ####[facility] PATH[facility] [id number] [place], LACTIC ACIDOrdered By: Yasmany Moran on 10-20-2024 Interpretation and review of laboratory results Abnormal [facility] Lactate [Moles/Vol] 2.1 mmol/L High 0.5 - 1. 6 mmol/L [facility] This test was developed, and its performance characteristics determined by the Department of Pathology of [facility]. It has not been cleared or approved by the FDA. This test is used for clinical purposes only. [facility] LACTIC ACIDon 10-20-2024 CR LACT 2.1 mmol/L High 0.5-1.6 [facility] Comment on above: Order Comment: This test was developed, and its performance characteristics determined by the Department of Pathology of [facility]. It has not been cleared or approved by the FDA. This test is used for clinical purposes only. Performed By: #### L ACT ####[facility] PATHOLOG[facility] [id number] [place], MAGNESIUMon 10-20-2024 Interpretation and review of laboratory results Normal [facility] Magnesium [Mass/Vol] 2.1 mg/dL 1.9 - 2 .7 mg/dL [facility] Magnesium [Mass/Vol] 2.1 mg/dL Normal 1.9-2.7 [facility] Comment on above: Performed By: #### Kelly Simon, HEPATIC, MG ####[facility] PATH[facility] [id number] [place], No Panel Informationon 10-20 [facility] Progress Noteson 10-20-2024 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 Interface Message Text Normal [facility] Transfer Noteon 10-20-2024 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 Interface Message Text Normal [facility] Progress Noteson 10-19-2024 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 Interface Message Text Normal [facility] 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 Interface Message Text [phone]: Informed Dr. Myers IV team unable to place any ultrasound guided IVs or obtain any blood for labs. Normal The 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 Interface Message Text Patient Stated can I take my bumex after my IV is done. Patient now stating can I take my bumex after I eat. I will continue to attempt to deliver medications in a timely matter. Team is aware. Normal The 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 Interface Message Text Normal The 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 Interface Message Text Normal The 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 Interface Message Text Normal The 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 Interface Message Text Normal The [employer] BASIC METABOLIC PANELon 04-2 Anion gap [Moles/Vol] 21 mmol/L High 10-20 [facility] [employer] Comment on above: Performed By: #### H TICO MG, PROCAL, CH8 ####S PATHOLOGY [id number] [place], [place], Calcium [Mass/Vol] 8.7 mg/dL Normal 8.6-10.3 [facility] [employer] [facility] Comment on above: Performed By: #### H EPAMISAEL MG, PROCAL, CH8 ####S PATHOLOGY [id number] [place], [place], Chloride [Moles/Vol] 101 mmol/L Normal 98-107 [facility] [employer] [facility] Comment on above: Performed By: #### H EPATIC MG, PROCAL, CH8 ####S PATHOLOGY [id number] [place], CO2 [Moles/Vol] 21 mmol/L Normal 21-31 [facility] [employer] Comment on above: Performed By: #### H EPATIC MG, PROCAL, CH8 ####S PATHOLOGY [id number] [place], Creatinine [Mass/Vol] 3.22 mg/dL High 0.70-1.30 [facility] [employer] [facility] Comment on above: Performed By: #### H EPATIC MG, PROCAL, CH8 ####S PATHOLOGY [id number] [place], ESTIMATED GFR (CKD-EPI) 23 mL/min/1.73sqm Low >=60 [facility] [employer] [facility] Comment on above: Result Comment: 2020 [...] Inclusion of Race in Diagnosing Kidney Disease. [place] Journal of Kidney Diseases 2021;79(2):268-88.e1.2. N Engl J Med 2020 Vol. 385 Issue 19 Pages [phone] Performed By: #### H EPATIC MG, PROCAL, CH8 ####S PATHOLOGY [id number] [place], [place], Glucose [Mass/Vol] 169 mg/dL High 74-109 [facility] Comment on above: Performed By: #### H EPATIC MG, PROCAL, CH8 ####S PATHOLOGY [id number] [place], Potassium [Moles/Vol] 4.1 mmol/L Normal 3.5-5.0 [facility] Comment on above: Performed By: #### H EPATIC MG, PROCAL, CH8 ####S PATHOLOGY [id number] [place], Sodium [Moles/Vol] 139 mmol/L Normal 136-145 [facility] Comment on above: Performed By: #### H EPATIC MG, PROCAL, CH8 ####S PATHOLOGY [id number] [place], Urea nitrogen [Mass/Vol] 88 mg/dL High 7-25 [facility] Comment on above: Performed By: #### H EPATIC MG, PROCAL, CH8 ####S PATHOLOGY [id number] [place], [place], Basic metabolic 2000 panelon 10-18-2024 Anion gap [Moles/Vol] 21 mmol/L High 10 - [address] [facility] Calcium [Mass/Vol] 8.7 mg/dL 8.6 - 10. [...] Inclusion of Race in Diagnosing Kidney Disease. [place] Journal of Kidney Diseases 2021;79(2):268-88.e1. 2. N Engl J Med 2020 Vol. 385 Issue 19 Pages 9528-8315 Glucose [Mass/Vol] 169 mg/dL High 74 - 109 mg/dL [facility] Potassium [Moles/Vol] 4.1 mmol/L 3.5 - 5.0 mmol/L [facility] Sodium [Moles/Vol] 139 mmol/L 136 - 145 mmol/L [facility] Urea nitrogen [Mass/Vol] 88 mg/dL High 7 - 25 mg/dL [facility] CBC WITH DIFFERENTIALon 2 Basophils (Bld) [#/Vol] 0.05 10*3/uL 0.00 - [...] 10*6/uL Low [facility] WBC (Bld) [#/Vol] 12.1 10*3/uL High 4.5 - 11.5 K/uL [facility] Basophils (Bld) [#/Vol] 0.05 10*3/uL Normal 0.00-0.20 [facility] Comment on above: Performed By: #### C BCDSAT ####S PATHOLOGY [id number] [place], [address] Basophils/100 WBC (Bld) 0.4 % Normal <=1.9 [facility] Comment on above: Performed By: #### C BCDSAT ####S PATHOLOGY [id number] [place], Eosinophils (Bld) [#/Vol] 0.00 10*3/uL Normal 0.00-0.70 [facility] Comment on above: Performed By: #### C BCDSAT ####[facility] PATHOLOGY [id number] [place] [address], Eosinophils/100 WBC (Bld) 0.0 % Low 0.1-4.0 [facility] Comment on above: Performed By: #### C BCDSAT ####[facility] PATHOLOGY [id number] [place] [address], Erythrocyte distribution width (RBC) [Ratio] 16.4 % High 11.5-14.5 [facility] Comment on above: Performed By: #### C BCDSAT ####[facility] PATHOLOGY [id number] [place] [address], Hematocrit (Bld) [Volume fraction] 40.1 % Low 41.0-53.0 [facility] Comment on above: Performed By: #### C BCDSAT ####[facility] PATHOLOGY [id number] [place] [address], Hemoglobin (Bld) [Mass/Vol] 13.3 g/dL Low 13.9-16.3 [facility] Comment on above: Performed By: #### C BCDSAT ####[facility] PATHOLOGY [id number] [place] [address], Lymphocytes (Bld) [#/Vol] 0.99 10*3/uL Low 1.00-4.80 [facility] Comment on above: Performed By: #### C BCDSAT ####[facility] PATHOLOGY [id number] [place] [address], Lymphocytes/100 WBC (Bld) 8.2 % Low 24.0-44.0 [facility] Comment on above: Performed By: #### C BCDSAT ####[facility] PATHOLOGY [id number] [place] [address], MCH (RBC) [Entitic mass] 34.2 pg High 26.0-34.0 [facility] Comment on above: Performed By: #### C BCDSAT ####[facility] PATHOLOGY [id number] [place], MCHC (RBC) [Mass/Vol] 33.2 g/dL Normal 32.0-35.9 [facility] Comment on above: Performed By: #### C BCDSAT ####[facility] PATHOLOGY [id number] [place], MCV (RBC) [Entitic vol] 103 fL High 80-100 [facility] Comment on above: Performed By: #### C BCDSAT ####[facility] PATHOLOGY [id number] [place], Monocytes (Bld) [#/Vol] 0.59 10*3/uL Normal 0.20-1.00 [facility] Comment on above: Performed By: #### C BCDSAT ####[facility] PATHOLOGY [id number] [place], Monocytes/100 WBC (Bld) 4.9 % Normal 2.0-11.0 [facility] Comment on above: Performed By: #### C BCDSAT ####[facility] PATHOLOGY [id number] [place], Neutrophils (Bld) [#/Vol] 10.45 10*3/uL High 1.50-8.00 [facility] Comment on above: Performed By: #### C BCDSAT ####[facility] PATHOLOGY [id number] [place], Neutrophils/100 WBC (Bld) 86.6 % High 31.0-76.0 [facility] Comment on above: Performed By: #### C BCDSAT ####[facility] PATHOLOGY [id number] [place], Platelet mean volume (Bld) [Entitic vol] 9.6 fL Normal 7.5-11.2 [facility] Comment on above: Performed By: #### C BCDSAT ####[facility] PATHOLOGY [id number] [place], Platelets (Bld) [#/Vol] 135 10*3/uL Low 150-400 [facility] Comment on above: Performed By: #### C BCDSAT ####[facility] [id number] [place], RBC (Bld) [#/Vol] 3.90 10*6/uL Low 4.50-5.90 [facility] Comment on above: Performed By: #### C BCDSAT ####[facility] PATHOLOGY [id number] [place], WBC (Bld) [#/Vol] 12.1 10*3/uL High 4.5-11.5 [facility] Comment on above: Performed By: #### C BCDSAT ####[facility] PATHOLOGY [id number] [place], [place], Disruptive Behavior Progress Noteon 10-18-2024 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 Interface Message Text Normal [facility] ED Noteson 10-18-2024 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 Interface Message Text notified of critical LACTATE value of 4.7. Hard copy of results given to . Normal [facility] 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 Interface Message Text Dr. RESENDEZ notified of critical LACTATE value of 5.3. Hard copy of results given to Dr. RESENDEZ. Normal [facility] EKG 12 LEAD - PERFORMon 09-29 [...] MAYELA CRAIG ([id number]) on 10/18/2024 5:09:49 PM [facility] P wave Atrium by EKG 117 BPM [facility] P wave axis 80 degrees [facility] P-R Interval 138 ms [facility] Q-T interval 368 ms [facility] Q-T interval corrected 513 ms [facility] 153 degrees [facility] QRS duration 144 ms [facility] T wave axis -18 degrees [facility] H AND Timo 10-18-2024 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 Interface Message Text Normal [facility] HEPATIC FUNCTION PANELon Albumin [Mass/Vol] 3.3 g/dL Low 3.5 - 5.7 g/dL [facility] ALP [Catalytic activity/Vol] 273 U/L High [facility] ALT [Catalytic activity/Vol] 25 U/L [facility] AST [Catalytic activity/Vol] 31 U/L [facility] Bilirubin [Mass/Vol] 8.8 mg/dL High 0.3 - 1 .0 mg/dL [facility] Bilirubin.direct [Mass/Vol] 4.95 mg/dL High 0.03 - 0.18 mg/dL [facility] Protein [Mass/Vol] 6.2 g/dL 6.0 - 8.3 g/dL [facility] Albumin [Mass/Vol] 3.3 g/dL Low 3.5-5.7 [facility] Comment on above: Performed By: #### H TICO MG, PROCAL, CH8 ####S PATHOLOGY [id number] [place], [place], ALK 273 IU/L High 34-104 [facility] Comment on above: Performed By: #### Bonilla DOSHI MG, PROCAL, CH8 ####S PATHOLOGY [id number] [place], ALT [Catalytic activity/Vol] 25 U/L Normal 7-52 [facility] Comment on above: Performed By: #### Bonilla DOSHI MG, PROCAL, CH8 ####S PATHOLOGY [id number] [place], AST [Catalytic activity/Vol] 31 U/L Normal 13-39 [facility] Comment on above: Performed By: #### H TICO MG, PROCAL, CH8 ####S PATHOLOGY [id number] [place], Bilirubin [Mass/Vol] 8.8 mg/dL High 0.3-1.0 [facility] Comment on above: Performed By: #### Bonilla DOSHI MG, PROCAL, CH8 ####S PATHOLOGY [id number] [place], Bilirubin.direct [Mass/Vol] 4.95 mg/dL High 0.03-0.18 [facility] Comment on above: Performed By: #### H MG DOSHI PROCAL, CH8 ####[facility] PATHOLOGY [id number] [place], Protein [Mass/Vol] 6.2 g/dL Normal 6.0-8.3 [facility] Comment on above: Performed By: #### H MG DOSHI PROCAL, CH8 ####[facility] PATHOLOGY [id number] [place], [place], HIGH SENSITIVITY TROPONIN Io n 10-18-2024 [...] by the Department of Pathology of [facility]. It has not been cleared or approved by the FDA. This test is used for clinical purposes only. [facility] LACTATE WITH REPEAT EDon CR LACT 5.3 mmol/L Critically high 0.5-1.6 [facility] Comment on above: Order Comment: This test was developed, and its performance characteristics determined by the Department of Pathology of [facility]. It has not been cleared or approved by the FDA. This test is used for clinical purposes only. Performed By: #### L ACTREPEAT ####[facility] PATHOLOGY [id number] [place], [place], LACTIC ACIDOrdered By: Fely Read on 10-18-2024 Interpretation and review of laboratory results Abnormal [facility] Lactate [Moles/Vol] 4.8 mmol/L Critically high 0.5 - 1.6 mmol/L [facility] This test was developed, and its performance characteristics determined by the Department of Pathology of [facility]. It has not been cleared or approved by the FDA. This test is used for clinical purposes only. [facility] LACTIC ACIDon 10-18-2024 CR LACT 4.8 mmol/L Critically high 0.5-1.6 [facility] Comment on above: Order Comment: This test was developed, and its performance characteristics determined by the Department of Pathology of [facility]. It has not been cleared or approved by the FDA. This test is used for clinical purposes only. Performed By: #### L ACT ####[facility] PATHOLOGY [id number] [place], Interpretation and review of laboratory results Abnormal [facility] Lactate [Moles/Vol] 4.7 mmol/L Critically high 0.5 - 1.6 mmol/L [facility] This test was developed, and its performance characteristics determined by the Department of Pathology of [facility]. It has not been cleared or approved by the FDA. This test is used for clinical purposes only. [facility] CR LACT 4.7 mmol/L Critically high 0.5-1.6 [facility] Comment on above: Order Comment: This test was developed, and its performance characteristics determined by the Department of Pathology of [facility]. It has not been cleared or approved by the FDA. This test is used for clinical purposes only. Performed By: #### L ACT ####[facility] PATHOLOGY [id number] [place], MAGNESIUMon 10-18-2024 Magnesium [Mass/Vol] 2.9 mg/dL High 1.9 - 2 .7 mg/dL [facility] Magnesium [Mass/Vol] 2.9 mg/dL High 1.9-2.7 [facility] Comment on above: Performed By: #### H EPATIC, MG, PROCAL, CH8 ####[facility] PATHOLOGY [id number] [place], [place], No Panel Informationon 10-18 Interpretation and review of laboratory results Abnormal [facility] PROCALCITONINon 10-18-2024 Interpretation and review of laboratory results Abnormal [facility] Procalcitonin IA [Mass/Vol] 16.82 ng/mL High NINF - 0.50 ng/mL [facility] Comment on above: Procalcitonin Concen trations < [...] retest Procalcitonin within 6 to 24 hours. [facility] PROCALCITONIN 16.82 ng/mL High <0.50 [facility] Comment on above: Result Comment: Proc [...] to 24 hours. Performed By: #### H MG TICO, RASHAWN, FERNANDO8 ####[facility] PATH[facility] [id number] [place], [address] Progress Noteson 10-18-2024 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 Interface Message Text Normal [facility] 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 Interface Message Text Normal [facility] 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 Interface Message Text /GREG Myers notified of critical lactic acid value of 4.8. /GREG Myers read back critical results. New orders received. Normal [facility] 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 Interface Message Text Normal [facility] RESPIRATORY CULTURE, MISCOrd ered By: Lore Conklin on 10-18-2024 Bacteria identified Respiratory culture Nom (Unsp spec) Squamous Epithelial Cells present. Recommend submission of another specimen. [facility] Interpretation and review of laboratory results Normal [facility] RESPIRATORY CULTURE, MISCon 10-18-2024 RESPIRATORY CULTURE, MISC C RESP: Squamous Epithelial Cells present. Recommend submission of another specimen. Normal [facility] Comment on above: Performed By: #### C RESP ####[facility] I[address]qj4675 [place], [place] Troponin I.cardiac DL <= 0.0 1 ng/mL [Mass/Vol]on 10-18-2024 Interpretation and review of laboratory results Abnormal [facility] Elevated troponin ca n result from acute [...] within the clinical context using provider judgement. [facility] [employer] BASIC METABOLIC PANELon 04-2 Anion gap [Moles/Vol] 26 mmol/L High 10-20 [facility] Comment on above: Performed By: #### Nichole Morales, CH8 ####[facility] PATH[facility] [id number] [place], Calcium [Mass/Vol] 8.7 mg/dL Normal 8.6-10.3 [facility] Comment on above: Performed By: #### Nichole Morales, CH8 ####[facility] PATH[facility] [id number] [place], Chloride [Moles/Vol] 101 mmol/L Normal 98-107 [facility] Comment on above: Performed By: #### Nichole Morales, CH8 ####[facility] PATHOLOGY [id number] [place], CO2 [Moles/Vol] 15 mmol/L Low 21-31 [facility] Comment on above: Performed By: #### Nichole Morales, CH8 ####[facility] PATHOLOGY [id number] [place], Creatinine [Mass/Vol] 2.80 mg/dL High 0.70-1.30 [facility] Comment on above: Performed By: #### Nichole Morales, CH8 ####S PATHOLOGY [id number] [place], ESTIMATED GFR (CKD-EPI) 27 mL/min/1.73sqm Low >=60 [facility] Comment on above: Result Comment: 2020 [...] Inclusion of Race in Diagnosing Kidney Disease. [place] Journal of Kidney Diseases 2021;79(2):268-88.e1.2. N Engl J Med 2020 Vol. 385 Issue 19 Pages 3693-2988 Performed By: #### Nichole Morales, CH8 ####[facility] PATHOLOG[facility] [id number] [place], Glucose [Mass/Vol] 106 mg/dL Normal 74-109 [facility] Comment on above: Performed By: #### Nichole Morales, CH8 ####S PATHOLOGY [id number] [place], Potassium [Moles/Vol] 4.7 mmol/L Normal 3.5-5.0 [facility] Comment on above: Performed By: #### Nichole Morales, CH8 ####[facility] PATHOLOGY [id number] [place], Sodium [Moles/Vol] 137 mmol/L Normal 136-145 [facility] Comment on above: Performed By: #### Nichole Morales, CH8 ####S PATHOLOGY [id number] [place], Urea nitrogen [Mass/Vol] 84 mg/dL High 7-25 [facility] Comment on above: Performed By: #### Nichole Morales, CH8 ####S PATHOLOGY [id number] [place], [place], Basic metabolic 2000 panelon 10-17-2024 Anion gap [Moles/Vol] 26 mmol/L High 10 - [address] [facility] Calcium [Mass/Vol] 8.7 mg/dL 8.6 - 10. [...] patient's full clinical presentation. Reference: 1. Berny Mendoza, Melonie M, Alecia BABCOCK, et al.. A Unifying Approach for GFR Estimation: Recommendations of the NKF-ASN Task Force on Reassessing the Inclusion of Race in Diagnosing Kidney Disease. [place] Journal of Kidney Diseases 2021;79(2):268-88.e1. 2. N Engl J Med 2020 Vol. 385 Issue 19 Pages 1648-0608 Glucose [Mass/Vol] 106 mg/dL 74 - 109 [...] (Bld) [#/Vol] 0.03 10*3/uL Normal 0.00-0.20 [facility] Comment on above: Performed By: #### C BCDSAT ####[facility] PATHOLOGY [id number] [place] [address], Basophils/100 WBC (Bld) 0.3 % Normal <=1.9 [facility] Comment on above: Performed By: #### C BCDSAT ####[facility] PATHOLOGY [id number] [place] [address], Eosinophils (Bld) [#/Vol] 0.00 10*3/uL Normal 0.00-0.70 [facility] Comment on above: Performed By: #### C BCDSAT ####S PATHOLOGY [id number] [place] [address], Eosinophils/100 WBC (Bld) 0.0 % Low 0.1-4.0 [facility] Comment on above: Performed By: #### C BCDSAT ####[facility] PATHOLOGY [id number] [place] [address], Erythrocyte distribution width (RBC) [Ratio] 16.3 % High 11.5-14.5 [facility] Comment on above: Performed By: #### C BCDSAT ####[facility] PATHOLOGY [id number] [place], [place], Hematocrit (Bld) [Volume fraction] 40.2 % Low 41.0-53.0 [facility] Comment on above: Performed By: #### C BCDSAT ####[facility] PATHOLOGY [id number] [place], Hemoglobin (Bld) [Mass/Vol] 13.6 g/dL Low 13.9-16.3 [facility] Comment on above: Performed By: #### C BCDSAT ####[facility] PATHOLOGY [id number] [place] [address], Lymphocytes (Bld) [#/Vol] 1.01 10*3/uL Normal 1.00-4.80 [facility] Comment on above: Performed By: #### C BCDSAT ####[facility] PATHOLOGY [id number] [place] [address], Lymphocytes/100 WBC (Bld) 7.8 % Low 24.0-44.0 [facility] Comment on above: Performed By: #### C BCDSAT ####[facility] PATHOLOGY [id number] [place], MCH (RBC) [Entitic mass] 34.9 pg High 26.0-34.0 [facility] Comment on above: Performed By: #### C BCDSAT ####[facility] PATHOLOGY [id number] [place], MCHC (RBC) [Mass/Vol] 33.8 g/dL Normal 32.0-35.9 [facility] Comment on above: Performed By: #### C BCDSAT ####[facility] PATHOLOGY [id number] [place], MCV (RBC) [Entitic vol] 104 fL High 80-100 [facility] Comment on above: Performed By: #### C BCDSAT ####[facility] PATHOLOGY [id number] [place] [address], MONOCYTE DISTRIBUTION WIDTH 20 Normal <=20 [facility] Comment on above: Performed By: #### Kelly BCDSAT ####[facility] PATHOLOGY [id number] [place], Monocytes (Bld) [#/Vol] 0.82 10*3/uL Normal 0.20-1.00 [facility] Comment on above: Performed By: #### C BCDSAT ####[facility] PATHOLOGY [id number] [place], Monocytes/100 WBC (Bld) 6.4 % Normal 2.0-11.0 [facility] Comment on above: Performed By: #### C BCDSAT ####[facility] PATHOLOGY [id number] [place], Neutrophils (Bld) [#/Vol] 10.98 10*3/uL High 1.50-8.00 [facility] Comment on above: Performed By: #### C BCDSAT ####[facility] PATHOLOGY [id number] [place], [place], Neutrophils/100 WBC (Bld) 85.5 % High 31.0-76.0 [facility] Comment on above: Performed By: #### C BCDSAT ####[facility] PATHOLOGY [id number] [place], [place], Platelet mean volume (Bld) [Entitic vol] 9.3 fL Normal 7.5-11.2 [facility] Comment on above: Performed By: #### C BCDSAT ####[facility] PATHOLOGY [id number] [place], [place], Platelets (Bld) [#/Vol] 153 10*3/uL Normal 150-400 [facility] Comment on above: Performed By: #### C BCDSAT ####[facility] PATHOLOGY [id number] [place], [place], RBC (Bld) [#/Vol] 3.88 10*6/uL Low 4.50-5.90 [facility] Comment on above: Performed By: #### C BCDSAT ####[facility] PATHOLOGY [id number] [place], [place], WBC (Bld) [#/Vol] 12.8 10*3/uL High 4.5-11.5 [facility] [employer] Comment on above: Performed By: #### C BCDSAT ####[facility] PATH[facility] [id number] [place], [address] ED Noteson 10-17-2024 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 Interface Message Text Delay in antibiotics d/t no IV access Normal [facility] ED Provider Noteson 10-18-19 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 Interface Message Text Normal [facility] [employer] [facility] 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 Interface Message Text Normal [facility] [employer] [facility] HIGH SENSITIVITY TROPONIN Io n 10-17-2024 HS TROPONIN I 49 ng/L High <=15 [facility] Comment on above: Order Comment: [place] monalisa troponin can result from acute myocardial [...] Performed By: #### H STRP ####[facility] PATH[facility] [id number] [place], [address] Troponin I.cardiac DL <= 0.01 ng/mL [Mass/Vol] 40 ng/L High NINF - 15 ng/L [facility] HS TROPONIN I 40 ng/L High <=15 [facility] Comment on above: Order Comment: [place] monalisa troponin can result from acute myocardial [...] Performed By: #### H STRP ####[facility] PATH[facility] [id number] [place], MAGNESIUMon 10-17-2024 Magnesium [Mass/Vol] 2.9 mg/dL High 1.9 - 2 .7 mg/dL [facility] Magnesium [Mass/Vol] 2.9 mg/dL High 1.9-2.7 [facility] Comment on above: Performed By: #### M G, CH8 ####[facility] PATHOLOGY [id number] [place], [place], NT PRO-BNPon 10-17-2024 Interpretation and review of laboratory results Abnormal [facility] Natriuretic peptide.B prohormone N-Terminal IA [Mass/Vol] 39950 pg/mL High NINF - 450 pg/mL [facility] Result: <300 pg/mL (All ages). Interpretation: Negative. Heart failure unlikely. Result: 300-450 pg/mL (<50 years), 300-900 pg/mL (50-75 years), 300-1800 pg/mL (>75 years). Interpretation: Indeterminate. Consider other reasons for NT Pro-BNP elevation. Result: >450 pg/mL (<50 years), >900 pg/mL (50-75 years), >1800 pg/mL (>75 years). Interpretation: Positive. Heart failure likely. [facility] Natriuretic peptide B (Bld) [Mass/Vol] 78866 pg/mL High <=450 [facility] Comment on above: Order Comment: Resul t: <300 pg/mL (All ages).Interpretation: Negative. Heart failure unlikely.Result: 300-450 pg/mL (<50 years), 300-900 pg/mL (50-75 years), 300-1800 pg/mL (>75 years).Interpretation: Indeterminate. Consider other reasons for NT Pro-BNP elevation.Result: >450 pg/mL (<50 years), >900 pg/mL (50-75 years), >1800 pg/mL (>75 years).Interpretation: Positive. Heart failure likely. Performed By: #### N T-PROBNP ####[facility] PATHOLOGY [id number] [place], [place], No Panel Informationon 10-17 Interpretation and review of laboratory results Abnormal [facility] PROTHROMBIN TIME AND INRon 0 10-17-2024 INR Coag (PPP) [Relative time] 2.14 {INR} High 0.90 - 1.[address] [facility] Interpretation and review of laboratory results Abnormal [facility] PT Coag (PPP) [Time] 24 s High Metr oHeal [facility] INR Coag (PPP) [Relative time] 2.14 {INR} High 0.90-1.10 [facility] Comment on above: Performed By: #### P T ####S PATHOLOGY [id number] [place], [place], PT Coag (PPP) [Time] 24.0 s High 9.7-12.9 [facility] Comment on above: Performed By: #### P T ####S PATHOLOGY [id number] [place], [place], Troponin I.cardiac DL <= 0.0 1 ng/mL [Mass/Vol]on 10-17-2024 Interpretation and review of laboratory results Abnormal [facility] Elevated troponin ca n result from acute [...] within the clinical context using provider judgement. [facility] XR CHEST AP OR PA 1 VIEWon 0 10-17-2024 XR CHEST AP OR PA 1 VIEW Normal [facility] [employer] [facility] XR Chest Single viewon 10-17 EXAMINATION: XR CHES T AP OR PA 1 VIEW 10/17/2024 09:00 PM CLINICAL HISTORY: Dyspnea at rest ASSOCIATED DIAGNOSIS: Dyspnea at rest ORDERING PROVIDER: VIC SANDHU TECHNGAVIN NOTE: COMPARISON: Chest radiograph dated October 13, [...] Dyspnea at rest ORDERING PROVIDER: VIC SANDHU TECHNGAVIN NOTE: COMPARISON: Chest radiograph dated October 13, [...] is recommended to document resolution. MACRO: None [facility] Radiology Study observation (narrative) [facility] XR Chest Single viewOrdered By: Francisca Coronado on 10-17-[address] [facility] Work Phone: COVID/INFLUENZAOrdered By: Jocelyne Nogueras on 10-13-2024 FLUAV RNA DEENA+probe Ql (Nph) Not detected Not Detected [facility] Comment on above: This assay was perfo rmed using [employer] RTPCR technology. FLUBV RNA DEENA+probe Ql (Nph) Not detected Not Detected [facility] Comment on above: This assay was perfo rmed using [employer] RTPCR technology. Interpretation and review of laboratory results Normal [facility] SARS-CoV-2 (COVID-19) Ab IA Ql Not Detected results are indicative of the absence of SARS-CoV-2 in the specimen submitted for testing. False negative results are possible based on the timing and quality of specimen submitted for testing. [facility] SARS-CoV-2 (COVID-19) RNA DEENA+probe Ql (Unsp spec) Not detected Not Detected [facility] Comment on above: This assay was perfo rmed using [employer] RTPCR technology. [facility] COVID/INFLUENZAon 10-13-2024 INFLUENZA A Not detected Normal Not Detected [facility] Comment on above: Order Comment: Not D etected results are indicative of the absence of SARS-CoV-2 in the specimen submitted for testing. False negative results are possible based on the timing and quality of specimen submitted for testing. Result Comment: This assay was performed using [employer] RTPCR technology. Performed By: #### F CLINT/COVID ####[facility] [id number] [place] [id number] INFLUENZA B Not detected Normal Not Detected [facility] Comment on above: Order Comment: Not D etected results are indicative of the absence of SARS-CoV-2 in the specimen submitted for testing. False negative results are possible based on the timing and quality of specimen submitted for testing. Result Comment: This assay was performed using [employer] RTPCR technology. Performed By: #### F CLINT/COVID ####[facility] [id number] [place] [id number] SARS-CoV-2 (COVID-19) RNA DEENA+probe Ql (Unsp spec) Not detected Normal Not Detected [facility] [facility] Comment on above: Order Comment: Not D etected results are indicative of the absence of SARS-CoV-2 in the specimen submitted for testing. False negative results are possible based on the timing and quality of specimen submitted for testing. Result Comment: This assay was performed using [employer] RTPCR technology. Performed By: #### F CLINT/COVID ####[facility] [id number] [facility] , [id number] ED Provider Noteson 10-14-19 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 Interface Message Text Normal [facility] [employer] [facility] Telephone Encounteron 2024 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 Interface Message Text Normal [facility] [employer] [facility] 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 Interface Message Text Caller transferred to nurse for sx of(buzzword or buzzword situation)was hosptalized for pneumonia and concerned about lingering cough. Normal [facility] XR CHEST PA+LAT 2 VIEWSon XR CHEST PA+LAT 2 VIEWS Normal [facility] XR Chest PA and Lateralon EXAMINATION: XR CHES T PA+LAT 2 VIEWS 10/13/2024 04:37 PM CLINICAL HISTORY: SOB ASSOCIATED DIAGNOSIS: SOB ORDERING PROVIDER: LUIS EDUARDO RITTER NOTE: sob COMPARISON: XR CHEST AP OR [...] ASSOCIATED DIAGNOSIS: SOB ORDERING PROVIDER: LUIS EDUARDO RITTER NOTE: sob COMPARISON: XR CHEST AP OR PA 1 VIEW 10/02/2024, 8:09 PM FINDINGS: Cardiomediastinal silhouette: Cardiomegaly, similar to prior exam Lungs/Pleura: Suspected improved but persistent right lower lobe consolidation. No pleural effusion or pneumothorax. Musculoskeletal: Degenerative spurring within the thoracic spine. IMPRESSION: Suspected improved but persistent right lower lobe consolidation. No pleural effusion. Stable cardiomegaly. MACRO: None [facility] [employer] [facility] Radiology Study observation (narrative) [employer] [employer] [facility] XR Chest PA and LateralOrder ed By: Deena Villeda on 10-13-2024 [employer] Work Phone: Telephone Encounteron 2024 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 Interface Message Text Normal [facility] BASIC METABOLIC PANELon Anion gap [Moles/Vol] 15 mmol/L Normal 10-20 [facility] Comment on above: Performed By: #### P HOS, CH8, MG ####[facility] PATH[facility] [id number] [place], [place], Calcium [Mass/Vol] 8.2 mg/dL Low 8.6-10.3 [facility] [employer] [facility] [employer] [facility] Comment on above: Performed By: #### P HOS, CH8, MG ####[facility] PATH[facility] [id number] [place], [place], Chloride [Moles/Vol] 96 mmol/L Low 98-107 [facility] [employer] [facility] Comment on above: Performed By: #### P HOS, CH8, MG ####[facility] PATH[facility]Y [id number] [place], CO2 [Moles/Vol] 27 mmol/L Normal 21-31 [facility] [facility] Comment on above: Performed By: #### P HOS, CH8, MG ####[facility] PATHOLOGY [id number] [place], Creatinine [Mass/Vol] 1.98 mg/dL High 0.70-1.30 [facility] Comment on above: Performed By: #### P HOS, CH8, MG ####[facility] PATH[facility] [id number] [place], ESTIMATED GFR (CKD-EPI) 41 mL/min/1.73sqm Low >=60 [facility] [employer] [facility] Comment on above: Result Comment: 2020 [...] Inclusion of Race in Diagnosing Kidney Disease. [place] Journal of Kidney Diseases 2021;79(2):268-88.e1.2. N Engl J Med 1 Vol. 385 Issue 19 Pages 5871-7914 Performed By: #### P HOS, CH8, MG ####[facility] PATH[facility] [id number] [place], Glucose [Mass/Vol] 105 mg/dL Normal 74-109 [facility] Comment on above: Performed By: #### P HOS, CH8, MG ####[facility] PATHOLOGY [id number] [place], Potassium [Moles/Vol] 4.3 mmol/L Normal 3.5-5.0 [facility] Comment on above: Performed By: #### P HOS, CH8, MG ####[facility] PATHOLOGY [id number] [place], Sodium [Moles/Vol] 134 mmol/L Low 136-145 [facility] Comment on above: Performed By: #### P HOS, CH8, MG ####[facility] PATHOLOGY [id number] [place], Urea nitrogen [Mass/Vol] 52 mg/dL High 7-25 [facility] Comment on above: Performed By: #### P HOS, CH8, MG ####[facility] PATHOLOGY [id number] [place], [place], Basic metabolic 2000 panelon 10-06-2024 Anion [...] Inclusion of Race in Diagnosing Kidney Disease. [place] Journal of Kidney Diseases 202;79(2):268-88.e1. 2. N Engl J Med 2020 Vol. 385 Issue 19 Pages 3077-7987 Glucose [Mass/Vol] 105 mg/dL 74 - 109 mg/dL [facility] Interpretation and review of laboratory results Abnormal [facility] Potassium [Moles/Vol] 4.3 mmol/L 3.5 - 5.0 mmol/L [facility] Sodium [Moles/Vol] 134 mmol/L Low 136 - 145 mmol/L [facility] Urea nitrogen [Mass/Vol] 52 mg/dL High 7 - 25 mg/dL [facility] CBC WITH DIFFERENTIALon 04-0 Basophils (Bld) [#/Vol] 0.03 10*3/uL 0.00 - [...] (Bld) [#/Vol] 0.03 10*3/uL Normal 0.00-0.20 [facility] Comment on above: Performed By: #### C BCDSAT ####S PATHOLOGY [id number] [place], [place], Basophils/100 WBC (Bld) 0.3 % Normal <=1.9 [facility] Comment on above: Performed By: #### C BCDSAT ####S PATHOLOGY [id number] [place], Eosinophils (Bld) [#/Vol] 0.02 10*3/uL Normal 0.00-0.70 [facility] Comment on above: Performed By: #### C BCDSAT ####[facility] PATHOLOGY [id number] [place], Eosinophils/100 WBC (Bld) 0.2 % Normal 0.1-4.0 [facility] Comment on above: Performed By: #### C BCDSAT ####[facility] PATHOLOGY [id number] [place] [address], Erythrocyte distribution width (RBC) [Ratio] 15.1 % High 11.5-14.5 [facility] Comment on above: Performed By: #### C BCDSAT ####[facility] PATHOLOGY [id number] [place] [address], Hematocrit (Bld) [Volume fraction] 40.8 % Low 41.0-53.0 [facility] Comment on above: Performed By: #### C MARYAT ####[facility] PATHOLOGY [id number] [place] [address], Hemoglobin (Bld) [Mass/Vol] 13.8 g/dL Low 13.9-16.3 [facility] Comment on above: Performed By: #### C BCSHEYLAAT ####[facility] PATHOLOGY [id number] [place] [address], Lymphocytes (Bld) [#/Vol] 2.34 10*3/uL Normal 1.00-4.80 [facility] Comment on above: Performed By: #### C BCDSAT ####[facility] PATHOLOGY [id number] [place] [address], Lymphocytes/100 WBC (Bld) 28.5 % Normal 24.0-44.0 [facility] Comment on above: Performed By: #### C BCDSAT ####[facility] PATHOLOGY [id number] [place] [address], MCH (RBC) [Entitic mass] 34.6 pg High 26.0-34.0 [facility] Comment on above: Performed By: #### C BCSHEYLAAT ####[facility] PATHOLOGY [id number] [place] [address], MCHC (RBC) [Mass/Vol] 33.9 g/dL Normal 32.0-35.9 [facility] Comment on above: Performed By: #### Kelly HERNANDEZAT ####[facility] PATHOLOGY [id number] [place], MCV (RBC) [Entitic vol] 102 fL High 80-100 [facility] Comment on above: Performed By: #### Kelly HERNANDEZAT ####[facility] PATHOLOGY [id number] [place], Monocytes (Bld) [#/Vol] 0.72 10*3/uL Normal 0.20-1.00 [facility] Comment on above: Performed By: #### Kelly HERNANDEZAT ####[facility] PATHOLOGY [id number] [place], Monocytes/100 WBC (Bld) 8.7 % Normal 2.0-11.0 [facility] Comment on above: Performed By: #### Kelly HERNANDEZAT ####[facility] PATHOLOGY [id number] [place], Neutrophils (Bld) [#/Vol] 5.11 10*3/uL Normal 1.50-8.00 [facility] Comment on above: Performed By: #### Kelly HERNANDEZAT ####[facility] PATHOLOGY [id number] [place], Neutrophils/100 WBC (Bld) 62.3 % Normal 31.0-76.0 [facility] Comment on above: Performed By: #### Kelly HERNANDEZAT ####S PATHOLOGY [id number] [place], Platelet mean volume (Bld) [Entitic vol] 8.5 fL Normal 7.5-11.2 [facility] Comment on above: Performed By: #### Kelly HERNANDEZAT ####S PATHOLOGY [id number] [place], Platelets (Bld) [#/Vol] 206 10*3/uL Normal 150-400 [facility] Comment on above: Performed By: #### C BCDSAT ####[facility] PATH[facility] [id number] [place], RBC (Bld) [#/Vol] 4.00 10*6/uL Low 4.50-5.90 [facility] Comment on above: Performed By: #### C BCDSAT ####[facility] PATHOLOGY [id number] [place], WBC (Bld) [#/Vol] 8.2 10*3/uL Normal 4.5-11.5 [facility] Comment on above: Performed By: #### C BCDSAT ####[facility] PATHOLOGY [id number] [place], LACTIC ACIDOrdered By: Connor Delacruz on 10-06-2024 Interpretation and review of laboratory results Abnormal [facility] Lactate [Moles/Vol] 2.4 mmol/L High 0.5 - 1. 6 mmol/L [facility] This test was developed, and its performance characteristics determined by the Department of Pathology of [facility]. It has not been cleared or approved by the FDA. This test is used for clinical purposes only. [facility] LACTIC ACIDon 10-06-2024 CR LACT 2.4 mmol/L High 0.5-1.6 [facility] Comment on above: Order Comment: This test was developed, and its performance characteristics determined by the Department of Pathology of [facility]. It has not been cleared or approved by the FDA. This test is used for clinical purposes only. Performed By: #### L ACT ####[facility] PATHOLOGY [id number] [place], MAGNESIUMon 10-06-2024 Magnesium [Mass/Vol] 2.1 mg/dL 1.9 - 2 .7 mg/dL [facility] Magnesium [Mass/Vol] 2.1 mg/dL Normal 1.9-2.7 [facility] Comment on above: Performed By: #### P HOS, CH8, MG ####[facility] PATHOLOGY [id number] [place], [place], No Panel Informationon 10-06 Interpretation and review of laboratory results Normal [facility] PHOSPHORUSon 10-06-2024 Phosphate [Mass/Vol] 3.3 mg/dL 2.5 - 5 .0 mg/dL [facility] Phosphate [Mass/Vol] 3.3 mg/dL Normal 2.5-5.0 [facility] Comment on above: Performed By: #### AUGUSTO CORDON MG ####[facility] PATH[facility] [id number] [place], [place], Progress Noteson 10-06-2024 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 Interface Message Text 10/06/2024 - Patient given AM medications. Patient spit out medications. Patient states that he has bad kidneys and medications make him sick. This RN educated on the importance of the medication. MD notified. Normal [facility] 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 Interface Message Text Normal [facility] 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 Interface Message Text Normal [facility] BASIC METABOLIC PANELon Anion gap [Moles/Vol] 19 mmol/L Normal 10-20 [facility] Comment on above: Performed By: #### ASHLEIGH Short MG ####[facility] PATH[facility] [id number] [place], Calcium [Mass/Vol] 8.1 mg/dL Low 8.6-10.3 [facility] Comment on above: Performed By: #### ASHLEIGH Short MG ####[facility] PATH[facility] [id number] [place], Chloride [Moles/Vol] 97 mmol/L Low 98-107 [facility] Comment on above: Performed By: #### ASHLEIGH Short MG ####[facility] PATHOLOGY [id number] [place], CO2 [Moles/Vol] 23 mmol/L Normal 21-31 [facility] Comment on above: Performed By: #### ASHLEIGH Short MG ####[facility] PATH[facility] [id number] [place], Creatinine [Mass/Vol] 2.18 mg/dL High 0.70-1.30 [facility] Comment on above: Performed By: #### ASHLEIGH Short MG ####[facility] PATH[facility] [id number] [place], ESTIMATED GFR (CKD-EPI) 37 mL/min/1.73sqm Low >=60 [facility] Comment on above: Result Comment: 2020 [...] Inclusion of Race in Diagnosing Kidney Disease. [place] Journal of Kidney Diseases 2021;79(2):268-88.e1.2. N Engl J Med 1 Vol. 385 Issue 19 Pages 5991-5590 Performed By: #### Kelly Simon PHOFadia MG ####[facility] PATH[facility] [id number] [place], Glucose [Mass/Vol] 124 mg/dL High 74-109 [facility] Comment on above: Performed By: #### Kelly HGissel PHOS, MG ####[facility] PATHOLOGY [id number] [place], Potassium [Moles/Vol] 4.8 mmol/L Normal 3.5-5.0 [facility] Comment on above: Performed By: #### Klely HGissel PHOS, MG ####[facility] PATHOLOGY [id number] [place], Sodium [Moles/Vol] 134 mmol/L Low 136-145 [facility] Comment on above: Performed By: #### Kelly HGissel PHOS, MG ####[facility] PATHOLOG[facility] [id number] [place], Urea nitrogen [Mass/Vol] 51 mg/dL High 7-25 [facility] Comment on above: Performed By: #### Kelly HGissel PHOS, MG ####[facility] PATH[facility] [id number] [place], Basic metabolic 2000 panelon 10-05-2024 Anion [...] Inclusion of Race in Diagnosing Kidney Disease. [place] Journal of Kidney Diseases 2021;79(2):268-88.e1. 2. N Engl J Med 2020 Vol. 385 Issue 19 Pages 5929-4309 Glucose [Mass/Vol] 124 mg/dL High 74 - [...] [Mass/Vol] 33.4 g/dL 32.0 - 35.9 g/dL [facility] MCV (RBC) [Entitic vol] 104 fL High 80 - 100 fL [facility] Platelet mean volume (Bld) [Entitic vol] 8.2 fL 7.5 - 11.2 fL [facility] Platelets (Bld) [#/Vol] 195 10*3/uL 150 - 400 K/uL [facility] RBC (Bld) [#/Vol] 3.83 10*6/uL Low [facility] WBC (Bld) [#/Vol] 9.2 10*3/uL 4.5 - 11.5 K/uL [facility] CBC WITH DIFFERENTIALon Erythrocyte distribution width (RBC) [Ratio] 15.2 % High 11.5-14.5 [facility] Comment on above: Performed By: #### GILBERTO JARRETT ####[facility] PATHOLOGY [id number] [place] [address], Hematocrit (Bld) [Volume fraction] 39.7 % Low 41.0-53.0 [facility] Comment on above: Performed By: ###GILBERTO COLLADO ####S PATHOLOGY [id number] [place], Hemoglobin (Bld) [Mass/Vol] 13.3 g/dL Low 13.9-16.3 [facility] Comment on above: Performed By: ###GILBERTO COLLADO ####S PATHOLOGY [id number] [place], MCH (RBC) [Entitic mass] 34.7 pg High 26.0-34.0 [facility] Comment on above: Performed By: ###GILBERTO COLLADO ####S PATHOLOGY [id number] [place], [place], MCHC (RBC) [Mass/Vol] 33.4 g/dL Normal 32.0-35.9 [facility] Comment on above: Performed By: ###GILBERTO COLLADO ####S PATHOLOGY [id number] [place] [address], MCV (RBC) [Entitic vol] 104 fL High 80-100 [facility] Comment on above: Performed By: ###GILBERTO COLLADO ####[facility] PATHOLOGY [id number] [place], [place], Platelet mean volume (Bld) [Entitic vol] 8.2 fL Normal 7.5-11.2 [facility] Comment on above: Performed By: ##GILBERTO STACK ####[facility] PATHOLOGY [id number] [place], [place], Platelets (Bld) [#/Vol] 195 10*3/uL Normal 150-400 [facility] Comment on above: Performed By: ###GILBERTO COLLADO ####S PATHOLOGY [id number] [place], [place], RBC (Bld) [#/Vol] 3.83 10*6/uL Low 4.50-5.90 [facility] Comment on above: Performed By: ###GILBERTO COLLADO ####[facility] PATHOLOGY [id number] [place], [place], WBC (Bld) [#/Vol] 9.2 10*3/uL Normal 4.5-11.5 [facility] Comment on above: Performed By: ###GILBERTO COLLADO ####[facility] PATHOLOGY [id number] [place], [place], Consultson 10-05-2024 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 Interface Message Text Normal [facility] LACTIC ACIDOrdered By: Daniel Vera on 10-05-2024 Interpretation and review of laboratory results Abnormal [facility] Lactate [Moles/Vol] 3.5 mmol/L Critically high 0.5 - 1.6 mmol/L [facility] This test was developed, and its performance characteristics determined by the Department of Pathology of [facility]. It has not been cleared or approved by the FDA. This test is used for clinical purposes only. [facility] LACTIC ACIDon 10-05-2024 CR LACT 3.5 mmol/L Critically high 0.5-1.6 [facility] Comment on above: Order Comment: This test was developed, and its performance characteristics determined by the Department of Pathology of [facility]. It has not been cleared or approved by the FDA. This test is used for clinical purposes only. Performed By: #### L ACT ####[facility] PATHOLOGY [id number] [place], [place], Laboratory - Microbiology an d Antimicrobial susceptibilityon 10-05-2024 Bacteria identified Cx Nom (Bld) No Growth [facility] MAGNESIUMon 10-05-2024 Magnesium [Mass/Vol] 2.1 mg/dL 1.9 - 2 .7 mg/dL [facility] Magnesium [Mass/Vol] 2.1 mg/dL Normal 1.9-2.7 [facility] Comment on above: Performed By: #### C ASHLEIGH Simon MG ####[facility] PATHOLOGY [id number] [place], [place], MANUAL DIFF AND MORPHon - Patsy cells LM Ql (Bld) Few [facility] Cells Counted Total (Bld) [#] 100 {cells} [facility] Dacrocytes LM Ql (Bld) Few [facility] Lymphocytes (Bld) [#/Vol] 1.56 10*3/uL 1.00 - 4.80 K/uL [facility] Lymphocytes/100 WBC (Bld) 17 % Low 24.0 - 44.0 % [facility] Macrocytes Ql (Bld) Slight [facility] Monocytes (Bld) [#/Vol] 0.64 10*3/uL 0.20 - 1.00 K/uL [facility] Monocytes/100 WBC (Bld) 7 % 2.0 - 11.0 % [facility] Neutrophils (Bld) [#/Vol] 6.99 10*3/uL 1.50 - 8.00 K/uL [facility] Neutrophils/100 WBC (Bld) 76 % 31.0 - 76.0 % [facility] Ovalocytes LM Ql (Bld) Few [facility] Polychromasia LM Ql (Bld) Slight [facility] Schistocytes LM Ql (Bld) Few [facility] PATSY CELLS Few Normal [facility] Comment on above: Performed By: #### C GILBERTO GRANGER ####[facility] PATHOLOGY [id number] [place], [place], CELLS COUNTED TOTAL # IN BLOOD 100 Normal [facility] Comment on above: Performed By: ###GILBERTO COLLADO ####[facility] PATHOLOGY [id number] [place], [place], FRAGMENTED RBC Few Normal [facility] Comment on above: Performed By: #### GILBERTO JARRETT ####[facility] PATHOLOGY [id number] [place], LYMPHOCYTES % BY MANUAL COUNT 17.0 % Low 24.0-44.0 [facility] Comment on above: Performed By: #### GILBERTO JARRETT ####S PATHOLOGY [id number] [place], LYMPHOCYTES ABS BY MANUAL COUNT 1.56 K/uL Normal 1.00-4.80 [facility] Comment on above: Performed By: ###GILBERTO COLLADO ####S PATHOLOGY [id number] [place] [address], MACROCYTOSIS Slight Normal [facility] Comment on above: Performed By: #### GILBERTO JARRETT ####S PATHOLOGY [id number] [place], MONOCYTES % BY MANUAL COUNT 7.0 % Normal 2.0-11.0 [facility] Comment on above: Performed By: #### GILBERTO JARRETT ####S PATHOLOGY [id number] [place], MONOCYTES ABS BY MANUAL COUNT 0.64 K/uL Normal 0.20-1.00 [facility] Comment on above: Performed By: #### GILBERTO JARRETT ####S PATHOLOGY [id number] [place], NEUTROPHILS % BY MANUAL COUNT 76.0 % Normal 31.0-76.0 [facility] Comment on above: Performed By: #### GILBERTO JARRETT ####[facility] PATHOLOGY [id number] [place], NEUTROPHILS ABS BY MANUAL COUNT 6.99 K/uL Normal 1.50-8.00 [facility] Comment on above: Performed By: #### GILBERTO JARRETT ####[facility] PATHOLOGY [id number] [place], OVALOCYTES Few Normal [facility] Comment on above: Performed By: #### GILBERTO JARRETT ####[facility] PATHOLOGY [id number] [place], POLYCHROMASIA Slight Normal [facility] Comment on above: Performed By: #### GILBERTO JARRETT ####[facility] PATHOLOGY [id number] [place], TEARDROP CELLS Few Normal [facility] Comment on above: Performed By: #### GILBERTO JARRETT ####S PATHOLOGY [id number] [place], [place], No Panel Informationon 10-05 Interpretation and review of laboratory results Normal [facility] Interpretation and review of laboratory results Abnormal [facility] Interpretation and review of laboratory results Normal [facility] PARTIAL THROMBOPLASTIN TIMEo n 10-05-2024 aPTT Coag (Bld) [Time] 30 s [facility] Interpretation and review of laboratory results Normal [facility] aPTT Coag (Bld) [Time] 30 s Normal 25-37 Th e [facility] Comment on above: Performed By: #### A PTT ####[facility] PATHOLOGY [id number] [place], PHOSPHORUSon 10-05-2024 Phosphate [Mass/Vol] 3.9 mg/dL 2.5 - 5 .0 mg/dL [facility] Phosphate [Mass/Vol] 3.9 mg/dL Normal 2.5-5.0 [facility] Comment on above: Performed By: #### C H8, PHOS, MG ####[facility] PATHOLOGY [id number] [place], Progress Noteson 10-05-2024 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 Interface Message Text Report received from amirah malhotra Care assumed att Normal [facility] 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 Interface Message Text Normal [facility] 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 Interface Message Text Normal [facility] 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 Interface Message Text /GREG PALACIOS notified of critical Lactate value of 3.5. /GREG PALACIOS read back critical results. New orders not received. Normal [facility] 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 Interface Message Text Patient refuses labs this morning. aware Normal [facility] Progress Notes - NoteWritero n 10-05-2024 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 Interface Message Text Normal [facility] Discharge Planning Noteon 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 Interface Message Text Normal [facility] Disruptive Behavior Progress Noteon 10-04-2024 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 Interface Message Text Normal [facility] Progress Noteson 10-04-2024 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 Interface Message Text Normal [facility] 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 Interface Message Text Normal [facility] 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 Interface Message Text Normal [facility] Progress Notes - NoteWritero n 10-04-2024 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 Interface Message Text 12:30 AM Patient refusing labs at this time Normal [facility] Transfer Noteon 10-04-2024 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 Interface Message Text Normal [facility] Consultson 10-03-2024 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 Interface Message Text Normal [facility] 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 Interface Message Text Normal [facility] Disruptive Behavior Progress Noteon 10-03-2024 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 Interface Message Text Normal [facility] 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 Interface Message Text Normal [facility] 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 Interface Message Text Normal [facility] 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 Interface Message Text Normal [facility] Progress Noteson 10-03-2024 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 Interface Message Text Normal [facility] Progress Notes - NoteWritero n 10-03-2024 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 Interface Message Text 12:58 AM Unable to obtain lab work due to lack of access, patient is difficult stick and refusing peripheral sticks. Normal [facility] BASIC METABOLIC PANELon Anion gap [Moles/Vol] 17 mmol/L Normal 10-20 [facility] Comment on above: Performed By: #### M ASHLEIGH Morales, CH8 ####[facility] PATHOLOGY [id number] [place], [address] Calcium [Mass/Vol] 8.2 mg/dL Low 8.6-10.3 [facility] Comment on above: Performed By: #### ASHLEIGH Arauz CH8 ####[facility] PATHOLOGY [id number] [place], Chloride [Moles/Vol] 100 mmol/L Normal 98-107 [facility] Comment on above: Performed By: #### ASHLEIGH Arauz CH8 ####[facility] PATHOLOGY [id number] [place], CO2 [Moles/Vol] 21 mmol/L Normal 21-31 [facility] Comment on above: Performed By: #### ASHLEIGH Arauz CH8 ####S PATHOLOGY [id number] [place], Creatinine [Mass/Vol] 2.51 mg/dL High 0.70-1.30 [facility] Comment on above: Performed By: #### ASHLEIGH Arauz CH8 ####S PATHOLOGY [id number] [place], ESTIMATED GFR (CKD-EPI) 31 mL/min/1.73sqm Low >=60 [facility] Comment on above: Result Comment: 2020 [...] Inclusion of Race in Diagnosing Kidney Disease. [place] Journal of Kidney Diseases 2021;79(2):268-88.e1.2. N Engl J Med 2020 Vol. 385 Issue 19 Pages [phone] Performed By: #### ASHLEIGH Arauz CH8 ####[facility] PATHOLOGY [id number] [place], Glucose [Mass/Vol] 182 mg/dL High 74-109 [facility] Comment on above: Performed By: #### ASHLEIGH Arauz CH8 ####[facility] PATHOLOGY [id number] [place], Potassium [Moles/Vol] 4.1 mmol/L Normal 3.5-5.0 [facility] Comment on above: Performed By: #### ASHLEIGH Arauz CH8 ####S PATHOLOGY [id number] [place], Sodium [Moles/Vol] 134 mmol/L Low 136-145 [facility] Comment on above: Performed By: #### ASHLEIGH Arauz CH8 ####[facility] PATHOLOGY [id number] [place], Urea nitrogen [Mass/Vol] 45 mg/dL High 7-25 [facility] Comment on above: Performed By: #### ASHLEIGH Arauz CH8 ####[facility] PATHOLOGY [id number] [place], [place], Basic metabolic 2000 panelon 10-02-2024 Anion [...] Inclusion of Race in Diagnosing Kidney Disease. [place] Journal of Kidney Diseases 202;79(2):268-88.e1. 2. N Engl J Med 2020 Vol. 385 Issue 19 Pages [phone] Glucose [Mass/Vol] 182 mg/dL High 74 - 109 mg/dL [facility] Interpretation and review of laboratory results Abnormal [facility] Potassium [Moles/Vol] 4.1 mmol/L 3.5 - 5.0 mmol/L [facility] Sodium [Moles/Vol] 134 mmol/L Low 136 - 145 mmol/L [facility] Urea nitrogen [Mass/Vol] 45 mg/dL High 7 - 25 mg/dL [facility] CBC panel Auto (Bld)on 10-02 Erythrocyte distribution width (RBC) [Ratio] 14.5 % 11.5 - 14.5 % [facility] Hematocrit (Bld) [Volume fraction] 39.1 % Low 41.0 - 53.0 % [facility] Hemoglobin (Bld) [Mass/Vol] 13.2 g/dL Low 13.9 - 16.3 g/dL [facility] Interpretation and review of laboratory results Abnormal [facility] MCH (RBC) [Entitic mass] 34.5 pg High 26.0 - 34.0 pg [facility] MCHC (RBC) [Mass/Vol] 33.7 g/dL 32.0 - 35.9 g/dL [facility] MCV (RBC) [Entitic vol] 102 fL High 80 - 100 fL [facility] Platelet mean volume (Bld) [Entitic vol] 8.2 fL 7.5 - 11.2 fL [facility] Platelets (Bld) [#/Vol] 212 10*3/uL 150 - 400 K/uL [facility] RBC (Bld) [#/Vol] 3.82 10*6/uL Low [facility] WBC (Bld) [#/Vol] 12.4 10*3/uL High 4.5 - 11.5 K/uL [facility] COMPLETE BLOOD COUNTon 10-02 Erythrocyte distribution width (RBC) [Ratio] 14.5 % Normal 11.5-14.5 [facility] Comment on above: Performed By: #### C BC ####[facility] PATHOLOGY [id number] [place], [address] Hematocrit (Bld) [Volume fraction] 39.1 % Low 41.0-53.0 [facility] Comment on above: Performed By: #### C BC ####[facility] PATHOLOGY [id number] [place], Hemoglobin (Bld) [Mass/Vol] 13.2 g/dL Low 13.9-16.3 [facility] Comment on above: Performed By: #### C BC ####[facility] PATHOLOGY [id number] [place], MCH (RBC) [Entitic mass] 34.5 pg High 26.0-34.0 [facility] Comment on above: Performed By: #### C BC ####[facility] PATHOLOGY [id number] [place], MCHC (RBC) [Mass/Vol] 33.7 g/dL Normal 32.0-35.9 [facility] Comment on above: Performed By: #### C BC ####[facility] PATHOLOGY [id number] [place], MCV (RBC) [Entitic vol] 102 fL High 80-100 [facility] Comment on above: Performed By: #### C BC ####[facility] PATHOLOGY [id number] [place], Platelet mean volume (Bld) [Entitic vol] 8.2 fL Normal 7.5-11.2 [facility] Comment on above: Performed By: #### C BC ####[facility] PATHOLOGY [id number] [place], Platelets (Bld) [#/Vol] 212 10*3/uL Normal 150-400 [facility] Comment on above: Performed By: #### C BC ####[facility] PATHOLOGY [id number] [place], RBC (Bld) [#/Vol] 3.82 10*6/uL Low 4.50-5.90 [facility] Comment on above: Performed By: #### C BC ####[facility] PATHOLOGY [id number] [place], WBC (Bld) [#/Vol] 12.4 10*3/uL High 4.5-11.5 [facility] Comment on above: Performed By: #### C BC ####[facility] PATHOLOGY [id number] [place], [address] Consultson 10-02-2024 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 Interface Message Text Normal [facility] 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 Interface Message Text Normal [facility] Diabetes tracking panelOrder ed By: Arvind Smith on 10-02-2024 Average glucose Estimated from glycated hemoglobin (Bld) [Mass/Vol] 128 mg/dL [facility] HbA1c (Bld) [Mass fraction] 6.1 % High 4.0 - 5.6 % [facility] Interpretation and review of laboratory results Abnormal [facility] Disruptive Behavior Progress Noteon 10-02-2024 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 Interface Message Text Normal [facility] 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 Interface Message Text Normal [facility] 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 Interface Message Text Normal [facility] 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 Interface Message Text Normal [facility] 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 Interface Message Text Normal [facility] EKG 12 LEAD - PERFORMon Diagnosis Poor data quality, interpretation may be adversely affected Sinus tachycardia Nonspecific intraventricular block Abnormal ECG When compared with ECG of 06-SEP-2024 15:21, change in axis- possible lead placement abnormality Confirmed by Juan BAKER KATHLEEN ([id number]) on 10/02/2024 11:02:35 AM [facility] P wave Atrium by EKG 112 BPM [facility] P wave axis 79 degrees [facility] P-R Interval 142 ms [facility] Q-T interval 382 ms [facility] Q-T interval corrected 521 ms [facility] QRS axis 218 degrees [facility] QRS duration 152 ms [facility] T wave axis -58 degrees [facility] LACTIC ACIDOrdered By: Megan Mcgill on 10-02-2024 Interpretation and review of laboratory results Abnormal [facility] Lactate [Moles/Vol] 2 mmol/L High 0.5 - 1. 6 mmol/L [facility] This test was developed, and its performance characteristics determined by the Department of Pathology of [facility]. It has not been cleared or approved by the FDA. This test is used for clinical purposes only. [facility] LACTIC ACIDon 10-02-2024 CR LACT 2.0 mmol/L High 0.5-1.6 [facility] Comment on above: Order Comment: This test was developed, and its performance characteristics determined by the Department of Pathology of [facility]. It has not been cleared or approved by the FDA. This test is used for clinical purposes only. Performed By: #### L ACT ####[facility] PATHOLOGY [id number] [place], MAGNESIUMon 10-02-2024 Magnesium [Mass/Vol] 1.9 mg/dL 1.9 - 2 .7 mg/dL [facility] Magnesium [Mass/Vol] 1.9 mg/dL Normal 1.9-2.7 [facility] Comment on above: Performed By: #### ASHLEIGH Arauz CH8 ####[facility] [id number] [place], [place], No Panel Informationon 10-02 Interpretation and review of laboratory results Normal [facility] PARTIAL THROMBOPLASTIN TIMEo n 10-02-2024 aPTT Coag (Bld) [Time] 28 s [facility] Interpretation and review of laboratory results Normal [facility] aPTT Coag (Bld) [Time] 28 s Normal 25-37 Th e [facility] Comment on above: Performed By: #### A PTT ####[facility] PATHOLOGY [id number] [place], PHOSPHORUSon 10-02-2024 Phosphate [Mass/Vol] 4.2 mg/dL 2.5 - 5 .0 mg/dL [facility] Phosphate [Mass/Vol] 4.2 mg/dL Normal 2.5-5.0 [facility] Comment on above: Performed By: #### ASHLEIGH Arauz CH8 ####[facility] [id number] [place], [place], Procedureson 10-02-2024 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 Interface Message Text Normal [facility] Progress Noteson 10-02-2024 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 Interface Message Text Normal [facility] 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 Interface Message Text Normal [facility] 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 Interface Message Text Patient refusing to be hooked to any IV medications. Physicians made aware of patient's refusal. (Heparin and IV ABX) Normal The [employer] [facility] 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 Interface Message Text Patient unhooked self from monitor for bathroom. Is unmonitored at this time until he is out of bathroom Normal [facility] XR CHEST AP OR PA 1 VIEWon 0 10-02-2024 XR CHEST AP OR PA 1 VIEW Normal [facility] XR CHEST AP OR PA 1 VIEW Normal [facility] XR Chest Single viewon 10-02 EXAMINATION: [...] Central line assessment ORDERING PROVIDER: STEVEN LAGUNA TECHNGAVIN NOTE: COMPARISON: XR CHEST AP OR [...] images and agree with the resident's interpretation. [facility] Sammi Brothers MD - 10/02/2024 EXAMINATION: XR [...] Continued follow-up exam is recommended. MACRO: None [facility] Radiology Study observation (narrative) [facility] Radiology Study observation (narrative) [facility] XR Chest Single viewOrdered By: Francisca Coronado on 10-02-2024 [facility] Work Phone: XR Chest Single viewOrdered By: Sammi Brothers on 10-02-2024 [employer] Work Phone: BASIC METABOLIC PANELon 04-0 Anion gap [Moles/Vol] 19 mmol/L Normal 10-20 [facility] [employer] [facility] Comment on above: Performed By: #### C H8, HDL, MG, PHOS ####[facility] PATHOLOG[facility] [id number] [place], Calcium [Mass/Vol] 8.4 mg/dL Low 8.6-10.3 [facility] Comment on above: Performed By: #### C H8, HDL, MG, PHOS ####[facility] PATHOLOGY [id number] [place], Chloride [Moles/Vol] 104 mmol/L Normal 98-107 [facility] Comment on above: Performed By: #### C H8, HDL, MG, PHOS ####[facility] PATHOLOGY [id number] [place], CO2 [Moles/Vol] 20 mmol/L Low 21-31 [facility] Comment on above: Performed By: #### C H8, HDL, MG, PHOS ####[facility] PATHOLOGY [id number] [place], Creatinine [Mass/Vol] 2.33 mg/dL High 0.70-1.30 [facility] Comment on above: Performed By: #### C H8, HDL, MG, PHOS ####[facility] PATHOLOGY [id number] [place], ESTIMATED GFR (CKD-EPI) 34 mL/min/1.73sqm Low >=60 [facility] Comment on above: Result Comment: 2020 [...] Inclusion of Race in Diagnosing Kidney Disease. [place] Journal of Kidney Diseases 2021;79(2):268-88.e1.2. N Engl J Med 2020 Vol. 385 Issue 19 Pages [phone] Performed By: #### C H8, HDL, MG, PHOS ####[facility] PATHOLOGY [id number] [place], Glucose [Mass/Vol] 151 mg/dL High 74-109 [facility] Comment on above: Performed By: #### C H8, HDL, MG, PHOS ####[facility] PATHOLOGY [id number] [place], Potassium [Moles/Vol] 4.5 mmol/L Normal 3.5-5.0 [facility] Comment on above: Performed By: #### C H8, HDL, MG, PHOS ####[facility] PATHOLOGY [id number] [place], Sodium [Moles/Vol] 138 mmol/L Normal 136-145 [facility] Comment on above: Performed By: #### C H8, HDL, MG, PHOS ####[facility] PATHOLOGY [id number] [place], Urea nitrogen [Mass/Vol] 41 mg/dL High 7-25 [facility] Comment on above: Performed By: #### C H8, HDL, MG, PHOS ####[facility] PATHOLOGY [id number] [place], [place], Basic metabolic 2000 panelon 10-01-2024 Anion gap [Moles/Vol] 19 mmol/L 10 - [address] [facility] Calcium [Mass/Vol] 8.4 mg/dL Low 8.6 - [...] Inclusion of Race in Diagnosing Kidney Disease. [place] Journal of Kidney Diseases 2021;79(2):268-88.e1. 2. N Engl J Med 2020 Vol. 385 Issue 19 Pages 4753-5176 Glucose [Mass/Vol] 151 mg/dL High 74 - [...] [#/Vol] 227 10*3/uL 150 - 400 K/uL [facility] RBC (Bld) [#/Vol] 4.11 10*6/uL Low [facility] WBC (Bld) [#/Vol] 10.9 10*3/uL 4.5 - 11.5 K/uL [facility] CBC WITH DIFFERENTIALon 04-0 Erythrocyte distribution width (RBC) [Ratio] 14.9 % High 11.5-14.5 [facility] Comment on above: Performed By: #### GILBERTO JARRETT ####[facility] PATH[facility]Y [id number] [place] [address], #### HB A1C ####[facility] [address] [place] [address], Hematocrit (Bld) [Volume fraction] 42.8 % Normal 41.0-53.0 [facility] Comment on above: Performed By: #### GILBERTO JARRETT ####[facility] PATH[facility] [id number] [place] [address], #### HB A1C ####[facility] [address] [place] [address], Hemoglobin (Bld) [Mass/Vol] 14.2 g/dL Normal 13.9-16.3 [facility] Comment on above: Performed By: ###GILBERTO COLLADO ####[facility] PATH[facility] [id number] [place] [address], #### HB A1C ####[facility] [address] [place] [address], MCH (RBC) [Entitic mass] 34.6 pg High 26.0-34.0 [facility] Comment on above: Performed By: ###GILBERTO COLLADO ####[facility] [id number] [place] [address], #### HB A1C ####[facility] [address] [place] [address], MCHC (RBC) [Mass/Vol] 33.2 g/dL Normal 32.0-35.9 [facility] Comment on above: Performed By: #### GILBERTO JARRETT ####[facility] PATH[facility] [id number] [place] [address], #### HB A1C ####[facility] [address] [place] [address], MCV (RBC) [Entitic vol] 104 fL High 80-100 [facility] Comment on above: Performed By: #### GILBERTO JARRETT ####[facility] PATHOLOG[facility] [id number] [place] [address], #### HB A1C ####[facility] [address] [place], [place], Platelet mean volume (Bld) [Entitic vol] 8.5 fL Normal 7.5-11.2 [facility] Comment on above: Performed By: #### GILBERTO JARRETT ####[facility] PATH[facility] [id number] [place] [address], #### HB A1C ####[facility] [address] [place], [place], Platelets (Bld) [#/Vol] 227 10*3/uL Normal 150-400 [facility] Comment on above: Performed By: #### GILBERTO JARRETT ####[facility] [id number] [place] [address], #### HB A1C ####[facility] [address] [place], [place], RBC (Bld) [#/Vol] 4.11 10*6/uL Low 4.50-5.90 [facility] Comment on above: Performed By: ###GILBERTO COLLADO ####[facility] [id number] [place] [address], #### HB A1C ####[facility] [address] [place], [place], WBC (Bld) [#/Vol] 10.9 10*3/uL Normal 4.5-11.5 [facility] Comment on above: Performed By: #### GILBERTO JARRETT ####[facility] [id number] [place] [address], #### HB A1C ####[facility] [address] [place], [place], FULL LIPID PROFILEon 025 Cholesterol [Mass/Vol] 152 mg/dL Normal <200 Th [facility] Comment on above: Result Comment: Michaela rable: < 200 mg/dLBorderline High: 200-239 mg/dLHigh: > = 240 mg/dL Performed By: #### C H8, HDL, MG, PHOS ####[facility] [id number] [place], [place], Cholesterol in LDL [Mass/Vol] 127 mg/dL High <100 [facility] Comment on above: Performed By: #### C H8, HDL, MG, PHOS ####[facility] [id number] [place] [address], Cholesterol.total/Chol esterol in HDL [Mass ratio] 9.50 {ratio} High <5.00 [facility] Comment on above: Performed By: #### C H8, HDL, MG, PHOS ####[facility] [id number] [place] [address], HDL CHOL 16 mg/dL Low >40 [facility] Comment on above: Performed By: #### C H8, HDL, MG, PHOS ####[facility] [id number] [place] [address], LDL/HDL 7.94 High <3.57 [facility] Comment on above: Performed By: #### C H8, HDL, MG, PHOS ####[facility] [id number] [place] [address], NON-HDL CHOLESTEROL 136 mg/dL High <130 [facility] Comment on above: Performed By: #### C H8, HDL, MG, PHOS ####[facility] [id number] [place], [place], Triglyceride [Mass/Vol] 66 mg/dL Normal <150 [facility] Comment on above: Result Comment: Norm al: < 150 mg/dLBorderline High: 150-199 mg/dLHigh: 200-499 mg/dLVery High: > = 500 mg/dL Performed By: #### C H8, HDL, MG, PHOS ####[facility] [id number] [place] [address], H AND Timo 10-01-2024 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 Interface Message Text Normal [facility] HEMOGLOBIN A1Con 10-01-2024 Glucose [Mass/Vol] 128 mg/dL Normal [facility] Comment on above: Performed By: #### GILBERTO JARRETT ####[facility] [id number] [place] [address], #### HB A1C ####[facility] [address] [place], [place], HbA1c (Bld) [Mass fraction] 6.1 % High 4.0-5.6 [facility] Comment on above: Performed By: #### GILBERTO JARRETT ####[facility] [id number] [place] [address], #### HB A1C ####[facility] [address] [place], [place], LACTIC ACIDOrdered By: Laura Michaud on 10-01-2024 Interpretation and review of laboratory results Abnormal [facility] Lactate [Moles/Vol] 5 mmol/L Critically high 0.5 - 1.6 mmol/L [facility] This test was developed, and its performance characteristics determined by the Department of Pathology of [facility]. It has not been cleared or approved by the FDA. This test is used for clinical purposes only. [facility] LACTIC ACIDon 10-01-2024 CR LACT 5.0 mmol/L Critically high 0.5-1.6 [facility] Comment on above: Order Comment: This test was developed, and its performance characteristics determined by the Department of Pathology of [facility]. It has not been cleared or approved by the FDA. This test is used for clinical purposes only. Performed By: #### L ACT ####[facility] [id number] [place] [address], CR LACT 3.5 mmol/L Critically high 0.5-1.6 [facility] Comment on above: Order Comment: This test was developed, and its performance characteristics determined by the Department of Pathology of [facility]. It has not been cleared or approved by the FDA. This test is used for clinical purposes only. Performed By: #### L ACT ####[facility] [id number] [place], [place], LACTIC ACIDOrdered By: Asia Xie on 10-01-2024 Interpretation and review of laboratory results Abnormal [facility] Lactate [Moles/Vol] 3.5 mmol/L Critically high 0.5 - 1.6 mmol/L [facility] This test was developed, and its performance characteristics determined by the Department of Pathology of [facility]. It has not been cleared or approved by the FDA. This test is used for clinical purposes only. [facility] Lipid 1996 panelon Cholesterol [Mass/Vol] 152 mg/dL NINF - 200 mg/dL [facility] Comment on above: Desirable: < 200 mg/ [...] ratio] 9.5 {ratio} High NINF - 5.00 [facility] Interpretation and review of laboratory results Abnormal [facility] Triglyceride [Mass/Vol] 66 mg/dL NINF - 150 mg/dL [facility] Comment on above: Normal: < 150 mg/dL Borderline High: 150-199 mg/dL High: 200-499 mg/dL Very High: > = 500 mg/dL [facility] MAGNESIUMon 10-01-2024 Magnesium [Mass/Vol] 2 mg/dL 1.9 - 2 .7 mg/dL [facility] Magnesium [Mass/Vol] 2.0 mg/dL Normal 1.9-2.7 [facility] Comment on above: Performed By: #### C H8, HDL, MG, PHOS ####[facility] [id number] [place], [place], MANUAL DIFF AND MORPHon 04-0 Cells Counted Total (Bld) [#] 100 {cells} [facility] Lymphocytes (Bld) [#/Vol] 2.07 10*3/uL 1.00 - 4.80 K/uL [facility] Lymphocytes/100 WBC (Bld) 19 % Low 24.0 - 44.0 % [facility] Monocytes (Bld) [#/Vol] 0.44 10*3/uL 0.20 - 1.00 K/uL [facility] Monocytes/100 WBC (Bld) 4 % 2.0 - 11.0 % [facility] Neutrophils (Bld) [#/Vol] 8.39 10*3/uL High 1.50 - 8.00 K/uL [facility] Neutrophils/100 WBC (Bld) 77 % High 31.0 - 76.0 % [facility] RBC morphology finding Nom (Bld) Normal [facility] CELLS COUNTED TOTAL # IN BLOOD 100 Normal [facility] Comment on above: Performed By: #### GILBERTO JARRETT ####[facility] [id number] [place] [address], #### HB A1C ####[facility] [address] [place], [address] LYMPHOCYTES % BY MANUAL COUNT 19.0 % Low 24.0-44.0 [facility] Comment on above: Performed By: ###GILBERTO COLLADO ####[facility] [id number] [place] [address], #### HB A1C ####[facility] [address] [place], [address] LYMPHOCYTES ABS BY MANUAL COUNT 2.07 K/uL Normal 1.00-4.80 [facility] Comment on above: Performed By: ###GILBERTO CLOLADO ####[facility] [id number] [place] [address], #### HB A1C ####[facility] [address] [place], [address] MONOCYTES % BY MANUAL COUNT 4.0 % Normal 2.0-11.0 [facility] Comment on above: Performed By: #### GILBERTO JARRETT ####[facility] [id number] [place] [address], #### HB A1C ####[facility] [address] [place], [address] MONOCYTES ABS BY MANUAL COUNT 0.44 K/uL Normal 0.20-1.00 [facility] Comment on above: Performed By: #### GILBERTO JARRETT ####[facility] [id number] [place] [address], #### HB A1C ####[facility] [address] [place], [address] NEUTROPHILS % BY MANUAL COUNT 77.0 % High 31.0-76.0 [facility] Comment on above: Performed By: #### GILBERTO JARRETT ####[facility] [id number] [place] [address], #### HB A1C ####[facility] [address] [place] [address], [address] NEUTROPHILS ABS BY MANUAL COUNT 8.39 K/uL High 1.50-8.00 [facility] Comment on above: Performed By: #### GILBERTO JARRETT ####[facility] [id number] [place] [address], #### HB A1C ####[facility] [address] [place] [address], RBC MORPHOLOGY Normal Normal [facility] Comment on above: Performed By: #### GILBERTO JARRETT ####[facility] [id number] [place] [address], #### HB A1C ####[facility] [address] [place], [address] No Panel InformationOrdered By: Carla Garcia on 10-01-2024 Interpretation and review of laboratory results Abnormal [facility] No Panel Informationon 10-01 Interpretation and review of laboratory results Normal [facility] PHOSPHORUSon 10-01-2024 Phosphate [Mass/Vol] 4.9 mg/dL 2.5 - 5 .0 mg/dL [facility] Phosphate [Mass/Vol] 4.9 mg/dL Normal 2.5-5.0 [facility] Comment on above: Performed By: #### C H8, HDL, MG, PHOS ####[facility] [id number] [place], [address] Progress Noteson 10-01-2024 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 Interface Message Text 1540: Critical lactate of 5.0, provider made aware. 1724: Rapid response RN notified of pending transfer to ICU. Vital signs stable, pt comfortable and cooperative, no concerns at this time. Normal [facility] 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 Interface Message Text Dr. Hutchinson notified of critical Lactate value of 3.5. Dr. Hutchinson read back critical results. New orders not received. Normal [facility] B TYPE NATRIURETIC PEPTIDEon 09-30-2024 Interpretation and review of laboratory results Abnormal [facility] Natriuretic peptide B (Bld) [Mass/Vol] 6470 pg/mL High NINF - 100.0 pg/mL [facility] Natriuretic peptide B (Bld) [Mass/Vol] 6470.0 pg/mL High <100.0 [facility] Comment on above: Performed By: #### B PL ####[facility] [id number] [place], [id number] BASIC METABOLIC PANELon Anion gap [Moles/Vol] 17 mmol/L Normal 10-20 [facility] Comment on above: Performed By: #### M G, HEPATIC, CH8, LIP ####[facility] [id number] [place], [id number] Calcium [Mass/Vol] 9.4 mg/dL Normal 8.6-10.3 [facility] Comment on above: Performed By: #### M G, HEPATIC, CH8, LIP ####[facility] [id number] [place], [id number] Chloride [Moles/Vol] 98 mmol/L Normal 98-107 [facility] Comment on above: Performed By: #### M G, HEPATIC, CH8, LIP ####[facility] [id number] [facility] , [id number] CO2 [Moles/Vol] 23 mmol/L Normal 21-31 [facility] Comment on above: Performed By: #### M G, HEPATIC, CH8, LIP ####[facility] [id number] [facility] , [id number] Creatinine [Mass/Vol] 2.64 mg/dL High 0.70-1.30 [facility] Comment on above: Performed By: #### M G, HEPATIC, CH8, LIP ####[facility] [id number] , [id number] ESTIMATED GFR (CKD-EPI) 29 mL/min/1.73sqm Low >=60 [...] Inclusion of Race in Diagnosing Kidney Disease. [place] Journal of Kidney Diseases 2021;79(2):268-88.e1.2. N Engl J Med 2020 Vol. 385 Issue 19 Pages 3888-8403 Performed By: #### M G, HEPATIC, CH8, LIP ####[facility] [id number] [facility] , [id number] Glucose [Mass/Vol] 189 mg/dL High 74-109 [facility] Comment on above: Performed By: #### M G, HEPATIC, CH8, LIP ####[facility] [id number] [facility] , [id number] Potassium [Moles/Vol] 4.0 mmol/L Normal 3.5-5.0 [facility] Comment on above: Performed By: #### M G, HEPATIC, CH8, LIP ####[facility] [id number] [place] , [id number] Sodium [Moles/Vol] 134 mmol/L Low 136-145 [facility] Comment on above: Performed By: #### M G, HEPATIC, CH8, LIP ####[facility] [id number] [facility] , [id number] Urea nitrogen [Mass/Vol] 43 mg/dL High 7-25 [facility] Comment on above: Performed By: #### M G, HEPATIC, CH8, LIP ####[facility] [id number] [facility] , [id number] BLOOD CULTUREon 09-30-2024 Bacteria identified Cx Nom (Bld) C BLOOD: No Growth Normal [facility] Comment on above: Performed By: #### C BLOOD ####[facility] Lrumyeyuo0469 [facility] [place], [place] BLOOD GAS, VENOUSon 10-01-19 25 Base excess [...] Performed By: #### C R BGV ####[facility] [id number] [facility] , [id number] CR HCO3V 22 mmol/L Normal 21-28 [facility] Comment on above: Performed By: #### C R BGV ####[facility] [id number] [facility] , [id number] CR PHV 7.369 Normal 7.320-7.430 [facility] Comment on above: Performed By: #### C R BGV ####[facility] [id number] [facility] [place], [id number] CR PVCO2 38.3 mm Hg Low 41.0-51.0 [facility] Comment on above: Performed By: #### C R BGV ####[facility] [id number] [facility] , [id number] CR PVO2 < 30 Low 38-44 [facility] Comment on above: Performed By: #### C R BGV ####[facility] [id number] [facility] , [id number] Oxygen saturation in Blood 10.1 % Low 70.0-80.0 [facility] Comment on above: Performed By: #### C R BGV ####[facility] [id number] [facility] , [id number] Basic metabolic 2000 panelon 09-30-2024 Anion gap [...] patient's full clinical presentation. Reference: 1. Berny Mendoza, Melonie M, Alecia BABCOCK, et al.. A Unifying Approach for GFR Estimation: Recommendations of the NKF-ASN Task Force on Reassessing the Inclusion of Race in Diagnosing Kidney Disease. [place] Journal of Kidney Diseases 2021;79(2):268-88.e1. 2. N Engl J Med 2020 Vol. 385 Issue 19 Pages 5399-0173 Glucose [Mass/Vol] 189 mg/dL High 74 - 109 mg/dL [facility] Interpretation and review of laboratory results Abnormal [facility] Potassium [Moles/Vol] 4 mmol/L 3.5 - 5.0 mmol/L [facility] Sodium [Moles/Vol] 134 mmol/L Low 136 - 145 mmol/L [facility] Urea nitrogen [Mass/Vol] 43 mg/dL High 7 - 25 mg/dL [facility] CBC WITH DIFFERENTIALon 040 Basophils (Bld) [#/Vol] 0 10*3/uL 0.00 - [...] above: Performed By: #### C BCDSAT ####[facility] [id number] [facility] , [id number] Basophils/100 WBC (Bld) 0.3 % Normal <=1.9 [facility] Comment on above: Performed By: #### C BCDSAT ####[facility] [id number] [facility] , [id number] Eosinophils (Bld) [#/Vol] 0.00 10*3/uL Normal 0.00-0.70 [facility] Comment on above: Performed By: #### C BCDSAT ####[facility] [id number] [facility] , [id number] Eosinophils/100 WBC (Bld) 0.1 % Normal 0.1-4.0 [facility] Comment on above: Performed By: #### C BCDSAT ####[facility] [id number] [facility] , [id number] Erythrocyte distribution width (RBC) [Ratio] 15.4 % High 11.5-14.5 [facility] Comment on above: Performed By: #### C BCDSAT ####[facility] [id number] [place] , [id number] Hematocrit (Bld) [Volume fraction] 47.7 % Normal 41.0-53.0 [facility] Comment on above: Performed By: #### C BCDSAT ####[facility] [id number] [address] [id number] Hemoglobin (Bld) [Mass/Vol] 15.6 g/dL Normal 13.9-16.3 [facility] Comment on above: Performed By: #### C BCDSAT ####[facility] [id number] [address] [place], [id number] Lymphocytes (Bld) [#/Vol] 1.70 10*3/uL Normal 1.00-4.80 [facility] Comment on above: Performed By: #### C BCDSAT ####[facility] [id number] [place] , [id number] Lymphocytes/100 WBC (Bld) 21.5 % Low 24.0-44.0 [facility] Comment on above: Performed By: #### C BCDSAT ####[facility] [id number] [place] , [id number] MCH (RBC) [Entitic mass] 34.1 pg High 26.0-34.0 [facility] Comment on above: Performed By: #### C BCDSAT ####[facility] [id number] [place] , [id number] MCHC (RBC) [Mass/Vol] 32.6 g/dL Normal 32.0-35.9 [facility] Comment on above: Performed By: #### C BCDSAT ####[facility] [id number] [place] , [id number] MCV (RBC) [Entitic vol] 105 fL High 80-100 [facility] Comment on above: Performed By: #### C BCDSAT ####[facility] [id number] [place], [id number] Monocytes (Bld) [#/Vol] 0.60 10*3/uL Normal 0.20-1.00 [facility] Comment on above: Performed By: #### C BCDSAT ####[facility] [id number] [place] , [id number] Monocytes/100 WBC (Bld) 7.7 % Normal 2.0-11.0 [facility] Comment on above: Performed By: #### C BCDSAT ####[facility] [id number] [place] , [id number] Neutrophils (Bld) [#/Vol] 5.40 10*3/uL Normal 1.50-8.00 [facility] Comment on above: Performed By: #### C BCDSAT ####[facility] [id number] [place] , [id number] Neutrophils/100 WBC (Bld) 70.4 % Normal 31.0-76.0 [facility] Comment on above: Performed By: #### C BCDSAT ####[facility] [id number] [place] , [id number] Nucleated RBC (Bld) [#/Vol] 10*3/uL Normal [facility] Comment on above: Performed By: #### C BCDSAT ####[facility] [id number] [place] , [id number] Nucleated RBC (Bld) [#/Vol] 0.01 10*3/uL Normal [facility] Comment on above: Performed By: #### C BCDSAT ####[facility] [id number] [place] , [id number] Platelet mean volume (Bld) [Entitic vol] 8.0 fL Normal 7.5-11.2 [facility] Comment on above: Performed By: #### C BCDSAT ####[facility] [id number] [place] , [id number] Platelets (Bld) [#/Vol] 299 10*3/uL Normal 150-400 [facility] Comment on above: Performed By: #### C BCDSAT ####[facility] [id number] [place] , [id number] RBC (Bld) [#/Vol] 4.57 10*6/uL Normal 4.50-5.90 [facility] Comment on above: Performed By: #### C BCDSAT ####[facility] [id number] [place] , [id number] WBC (Bld) [#/Vol] 7.7 10*3/uL Normal 4.5-11.5 [facility] Comment on above: Performed By: #### C BCDSAT ####[facility] [id number] [place] , [id number] COVID/INFLUENZAon 09-30-2024 FLUAV RNA DEENA+probe Ql (Nph) Not detected Not Detected [facility] Comment on above: This assay was perfo rmed using Joyce DEQUAN RTPCR technology. FLUBV RNA DEENA+probe Ql (Nph) Not detected Not Detected [facility] Comment on above: This assay was perfo rmed using Joyce DEQUAN RTPCR technology. Interpretation and review of laboratory results Normal [facility] SARS-CoV-2 (COVID-19) Ab IA Ql Not Detected results are indicative of the absence of SARS-CoV-2 in the specimen submitted for testing. False negative results are possible based on the timing and quality of specimen submitted for testing. [facility] SARS-CoV-2 (COVID-19) RNA DEENA+probe Ql (Unsp spec) Not detected Not Detected [facility] Comment on above: This assay was perfo rmed using Joyce DEQUAN RTPCR technology. [facility] INFLUENZA A Not detected Normal Not Detected [facility] Comment on above: Order Comment: Not D etected results are indicative of the absence of SARS-CoV-2 in the specimen submitted for testing. False negative results are possible based on the timing and quality of specimen submitted for testing. Result Comment: This assay was performed using Joyce DEQUAN RTPCR technology. Performed By: #### F CLINT/COVID ####[facility]OLOGY [id number] [place] , [id number] INFLUENZA B Not detected Normal Not Detected [facility] Comment on above: Order Comment: Not D etected results are indicative of the absence of SARS-CoV-2 in the specimen submitted for testing. False negative results are possible based on the timing and quality of specimen submitted for testing. Result Comment: This assay was performed using Joyce DEQUAN RTPCR technology. Performed By: #### F CLINT/COVID ####[facility] PATHOLOGY [id number] [place] , [id number] SARS-CoV-2 (COVID-19) RNA DEENA+probe Ql (Unsp spec) Not detected Normal Not Detected [facility] [employer] [facility] Comment on above: Order Comment: Not D etected results are indicative of the absence of SARS-CoV-2 in the specimen submitted for testing. False negative results are possible based on the timing and quality of specimen submitted for testing. Result Comment: This assay was performed using Joyce DEQUAN RTPCR technology. Performed By: #### F CLINT/COVID ####[facility] PATHOLOGY [id number] [place] , [id number] CT ABDOMEN/PELVIS W/O CONTRA STon 09-30-2024 CT ABDOMEN/PELVIS W/O CONTRAST Normal [facility] CT Abdomen and Pelvis WO con trastOrdered By: Dariel De Souza on 09-30-2024 CT DLP 832.55 (mGy.cm) [facility] Work Phone: CT Series Topogram,ABD/PEL [facility] Work Phone: CTDI VOL 0.10 (mGy),15.87 (mGy) [facility] Work Phone: PHANTOM TYPE IEC Body Dosimetry Phantom,IEC Body Dosimetry Phantom [facility] Work Phone: [facility] Work Phone: CT Abdomen and Pelvis WO [...] images and agree with the resident's interpretation. [facility] Radiology Study observation (narrative) [facility] ED Noteson 09-30-2024 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 Interface Message Text Pt refuses to swallow whole pills. Attempted with pudding and water. Pill then crushed and pt refused to take more than half Normal The [employer] Interface Message Text notified of critical lactate value of 4.3 read back critical results. No New orders Normal The [employer] Authentication Interface Message Text DR. BERG NOTIFIED OF CRITICAL LACTATE LEVEL OF 5.0. ORDERS FOLLOWED. Normal [facility] ED Provider Noteson 10-01-19 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 Interface Message Text Normal [facility] H AND Timo 09-30-2024 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 Interface Message Text Normal [facility] 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 Interface Message Text Normal [facility] HEPATIC FUNCTION PANELon Albumin [Mass/Vol] 3.8 g/dL 3.5 - 5.7 g/dL [facility] ALP [Catalytic activity/Vol] 331 U/L High [facility] ALT [Catalytic activity/Vol] 28 U/L [facility] AST [Catalytic activity/Vol] 19 U/L [facility] Bilirubin [Mass/Vol] 5.7 mg/dL High 0.3 - 1 .0 mg/dL [facility] Bilirubin.direct [Mass/Vol] 2.4 mg/dL High 0.03 - 0.18 mg/dL [facility] Interpretation and review of laboratory results Abnormal [facility] Protein [Mass/Vol] 6.5 g/dL 6.0 - 8.3 g/dL [facility] Albumin [Mass/Vol] 3.8 g/dL Normal 3.5-5.7 [facility] Comment on above: Performed By: #### M G, HEPATIC, CH8, LIP ####[facility] [id number] [place], [id number] ALK 331 IU/L High 34-104 [facility] Comment on above: Performed By: #### M G, HEPATIC, CH8, LIP ####[facility] [id number] [place], [id number] ALT [Catalytic activity/Vol] 28 U/L Normal 7-52 [facility] Comment on above: Performed By: #### M G, HEPATIC, CH8, LIP ####[facility] [id number] [place], [id number] AST [Catalytic activity/Vol] 19 U/L Normal 13-39 [facility] Comment on above: Performed By: #### M G, HEPATIC, CH8, LIP ####[facility] [id number] [place], [id number] Bilirubin [Mass/Vol] 5.7 mg/dL High 0.3-1.0 [facility] Comment on above: Performed By: #### M G, HEPATIC, CH8, LIP ####[facility] [id number] [facility] [place], [id number] Bilirubin.direct [Mass/Vol] 2.40 mg/dL High 0.03-0.18 [facility] Comment on above: Performed By: #### M G, HEPATIC, CH8, LIP ####[facility] [id number] [facility] [place], [id number] Protein [Mass/Vol] 6.5 g/dL Normal 6.0-8.3 [facility] Comment on above: Performed By: #### M G, HEPATIC, CH8, LIP ####[facility] [id number] [facility] , [id number] HIGH SENSITIVITY TROPONIN Io n 09-30-2024 Troponin I.cardiac DL <= 0.01 ng/mL [Mass/Vol] 32 ng/L High NINF - 15 ng/L [facility] HS TROPONIN I 32 ng/L High <=15 [facility] Comment on above: Order Comment: Monsey monalisa troponin can result from acute myocardial [...] judgement. Performed By: #### H STRP ####[facility] [id number] [facility] , [id number] Troponin I.cardiac DL <= 0.01 ng/mL [Mass/Vol] 38 ng/L High NINF - 15 ng/L [facility] HS TROPONIN I 38 ng/L High <=15 [facility] [employer] [facility] Comment on above: Order Comment: [place] monalisa troponin can result from acute myocardial [...] judgement. Performed By: #### H STRP ####[facility] [id number] [place] [id number] LACTIC ACIDon 09-30-2024 Interpretation and review of laboratory results Abnormal [facility] Lactate [Moles/Vol] 3.8 mmol/L Critically high 0.5 - 1.6 mmol/L [facility] CR LACT 3.8 mmol/L Critically high 0.5-1.6 [facility] Comment on above: Performed By: #### L ACT ####[facility] [id number] [place] [address] Interpretation and review of laboratory results Abnormal [facility] Lactate [Moles/Vol] 4.3 mmol/L Critically high 0.5 - 1.6 mmol/L [facility] CR LACT 4.3 mmol/L Critically high 0.5-1.6 [facility] Comment on above: Performed By: #### L ACT ####[facility] [id number] [place] [id number] Interpretation and review of laboratory results Abnormal [facility] Lactate [Moles/Vol] 5 mmol/L Critically high 0.5 - 1.6 mmol/L [facility] CR LACT 5.0 mmol/L Critically high 0.5-1.6 [facility] Comment on above: Performed By: #### L ACT ####[facility] [id number] [place], [id number] LIPASEon 09-30-2024 Interpretation and review of laboratory results Normal [facility] Lipase [Catalytic activity/Vol] 15 U/L [facility] LIP 15 IU/L Normal 11-82 [facility] Comment on above: Performed By: #### M G, HEPATIC, CH8, LIP ####[facility] [id number] [facility] [place], [id number] MAGNESIUMOrdered By: Diana Herring on 09-30-2024 Interpretation and review of laboratory results Normal [facility] Magnesium [Mass/Vol] 2.3 mg/dL 1.9 - 2 .7 mg/dL [facility] MAGNESIUMon 09-30-2024 Magnesium [Mass/Vol] 2.3 mg/dL Normal 1.9-2.7 [facility] Comment on above: Performed By: #### M G, HEPATIC, CH8, LIP ####[facility] [id number] [place], [id number] PROTHROMBIN TIME AND INRon 0 09-30-2024 INR Coag (PPP) [Relative time] 1.54 {INR} High 0.90 - 1.10 [facility] Interpretation and review of laboratory results Abnormal [facility] PT Coag (PPP) [Time] 18.2 s High [facility] INR Coag (PPP) [Relative time] 1.54 {INR} High 0.90-1.10 [facility] Comment on above: Performed By: #### P T ####[facility] [id number] [place], [id number] PT Coag (PPP) [Time] 18.2 s High 9.4-12.5 [facility] Comment on above: Performed By: #### P T ####[facility] [id number] [place], [id number] Telephone Encounteron 2024 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 Interface Message Text Normal [facility] Troponin I.cardiac DL <= 0.0 1 ng/mL [Mass/Vol]on 09-30-2024 Interpretation and review of laboratory results Abnormal [facility] Elevated troponin ca n result from acute [...] within the clinical context using provider judgement. [facility] Interpretation and review of laboratory results Abnormal [facility] Elevated troponin ca n result from acute [...] within the clinical context using provider judgement. [employer] XR CHEST AP OR PA 1 VIEWon 0 09-30-2024 XR CHEST AP OR PA 1 VIEW Normal [facility] [employer] [facility] XR Chest Single viewon 09-30 EXAMINATION: [...] or pleural effusion. Limited exam. MACRO: None [facility] Radiology Study observation (narrative) [employer] XR Chest Single viewOrdered By: Vanessa Pyle on 09-30-2024 [employer] Work Phone: C BLOODon 09-23-2024 [facility] Dept of Laboratory Services [address] [place] [phone] Name: CARLO MEDINA : 1980 Admitting SABINE LANGFORD MD Provider: Gender Male Financial [id number] : Number: Locatio EDTU; [id number]; 01 n: Admit 09/17/2024 Date: Discharge 09/19/2024 [...] MEDINA Print 09/23/2024 00:00 EDT Date/Time: Normal [facility] Comment on above: Performed By: #### 1 51202, [id number], [id number] #### [facility] [address] [place] [address] Software Designer: Woody Leyva MD C BLOOD [facility] [address] [place] [phone] Name: CARLO MEDINA : 1980 Admitting SABINE LANGFORD MD Provider: Gender Male Financial [id number] : Number: Locatio EDTU; [id number]; 01 n: Admit 09/17/2024 Date: Discharge 09/19/2024 [...] MEDINA Print 09/23/2024 00:00 EDT Date/Time: Normal [facility] Comment on above: Performed By: #### 1 04735, 598772, [id number] #### [facility] [address] [place], [place] [id number] Software Designer: Woody Leyva MD AUTO DIFFon 09-19-2024 Baso Count 0.05 x1000 Normal 0.00-0.20 [facility] Comment on above: Performed By: #### 1 26238, 633394, [id number] #### [facility] [address] [place], [place] [address] Software Designer: Woody Leyva MD Basos % 0.6 % [facility] Comment on above: Performed By: #### 1 37053, 282211, [id number] #### [facility] [address] [place], [place] [address] Software Designer: Woody Leyva MD Eos Count 0.05 x1000 Normal 0.00-0.50 [facility] Comment on above: Performed By: #### 1 01401, 389952, 5144174 #### [facility] [address] [place], [place] [address] Software Designer: Woody Leyva MD Eosinophils/100 WBC (Bld) 0.6 % Normal [facility] Comment on above: Performed By: #### 1 29548, 660298, [id number] #### [facility] [address] [place], [place] [address] Software Designer: Woody Leyva MD Lymph Count 2.08 x1000 Normal 1.20-4.80 [facility] Comment on above: Performed By: #### 1 91418, 979040, 3859056 #### [facility] [address] [place] [address] Software Designer: Woody Leyva MD Lymphocytes/100 WBC (Bld) 26.8 % Normal [facility] Comment on above: Performed By: #### 1 34177, 379622, 2387784 #### [facility] [address] [place] [address] Software Designer: Woody Leyva MD Duplin Count 0.74 x1000 Normal 0.10-1.00 [facility] Comment on above: Performed By: #### 1 77423, 802672, 1047902 #### [facility] [address] [place] [address] 61761 Software Designer: Woody Leyva MD Monocytes/100 WBC (Bld) 9.4 % Normal [facility] Comment on above: Performed By: #### 1 18948, 399003, 0623777 #### [facility] [address] [place] [address] 27837 Software Designer: Woody Leyva MD Neutrophil Count (ANC) 4.87 x1000 Normal 1.40-8.80 So [facility] Comment on above: Performed By: #### 1 19024, 605168, [id number] #### [facility] [address] [place] [address] 12737 Software Designer: Woody Leyva MD Neutrophils/100 WBC (Bld) 62.5 % Normal [facility] Comment on above: Performed By: #### 1 72486, 263276, 4504960 #### [facility] [address] [place] [address] 72392 Software Designer: Woody Leyva MD COMPMETAon 09-19-2024 Albumin [Mass/Vol] 3.0 g/dL Low 3.4-5.0 [facility] Comment on above: Performed By: #### 1 26902, 526868, 8505624 #### [facility] [address] [place] [address]223 Software Designer: Woody Leyva MD Albumin/Globulin [Mass ratio] 0.9 {ratio} Normal [facility] Comment on above: Performed By: #### 1 44933, 206251, [id number] #### [facility] [address] [place] [address] 78228 Software Designer: Woody Leyva MD Alk Phos 276 unit/L High 45-117 [facility] Comment on above: Performed By: #### 1 41470, 514021, 1486256 #### [facility] [address] [place] [address] 84700 Software Designer: Woody Leyva MD Bilirubin [Mass/Vol] 2.90 mg/dL High 0.30-1.20 [facility] Comment on above: Result Comment: Use of this assay is not recommended for patients undergoing treatment with eltrombopag due to the potential for falsely elevated results. Performed By: #### 1 , 965111, [id number] #### [facility] [address] [place] [address] 05562 Software Designer: Woody Leyva MD Calcium [Mass/Vol] 9.0 mg/dL Normal 8.7-10.4 [facility] Comment on above: Performed By: #### 1 , 718160, 1400071 #### [facility] [address] [place] [address] 59284 Software Designer: Woody Leyva MD Chloride [Moles/Vol] 100 mmol/L Normal 98-107 [facility] Comment on above: Performed By: #### 1 59684, 491862, 2455105 #### [facility] [address] [place] [address] 75458 Software Designer: Woody Leyva MD CO2 [Moles/Vol] 26.0 mmol/L Normal 20.0-31.0 [facility] Comment on above: Performed By: #### 1 24723, 657376, 1047638 #### [facility] [address] [place] [address] 39008 Software Designer: Woody Leyva MD Creatinine [Mass/Vol] 2.3 mg/dL High 0.6-1.1 [facility] Comment on above: Performed By: #### 1 26754, 620857, 0068522 #### [facility] [address] [place] [address] Software Designer: Woody Leyva MD GFR AA 37 [facility] Comment on above: Result Comment: Afri can Marshallese GFR Calc Medical judgement is necessary to [...] for drug dosing. Performed By: #### 1 27641, 971006, 1060164 #### [facility] [address] [place] [address] 53279 Software Designer: Woody Leyva MD Globulin (S) [Mass/Vol] 3.2 g/dL [facility] Comment on above: Performed By: #### 1 99443, 737375, 8223246 #### [facility] [address] [place] [address] 13831 Software Designer: Woody Leyva MD Glomerular Filtration Rate 31 mL/min/1.73m? [facility] Comment on above: Result Comment: Non- [...] for drug dosing. Performed By: #### 1 51601, 989894, 6492596 #### [facility] [address] [place] [address] 31199 Software Designer: Woody Leyva MD Glucose [Mass/Vol] 117 mg/dL High 74-106 [facility] Comment on above: Performed By: #### 1 90890, 157600, 0476583 #### [facility] [address] [place] [address] 11882 Software Designer: Woody Leyva MD GOT 34 unit/L Normal 15-37 [facility] Comment on above: Performed By: #### 1 55725, 554005, 6738623 #### [facility] [address] [place] [address] 39265 Software Designer: Woody Leyva MD GPT 47 unit/L Normal 10-49 [facility] Comment on above: Performed By: #### 1 62284, 352491, 3626091 #### [facility] [address] [place] [address] 74709 Software Designer: Woody Leyva MD Osmolality [Osmolality] 292 mosm/kg Normal 275-295 [facility] Comment on above: Performed By: #### 1 24181, 964084, 5864220 #### [facility] [address] [place] [address] 76902 Software Designer: Woody Leyva MD Potassium [Moles/Vol] 3.7 mmol/L Normal 3.5-5.1 [facility] Comment on above: Performed By: #### 1 62475, 859322, 4396414 #### [facility] [address] [place] [address] 39200 Software Designer: Woody Leyva MD Protein [Mass/Vol] 6.2 g/dL Normal 5.7-8.2 [facility] Comment on above: Result Comment: Tota l Protein results may be increased in patients receiving dextran as a blood volume men's swim coach Performed By: #### 1 93656, 785821, 0378751 #### [facility] [address] [place] [address] 12276 Software Designer: Woody Leyva MD Sodium [Moles/Vol] 139 mmol/L Normal 135-145 [facility] Comment on above: Performed By: #### 1 40843, 288063, 5392912 #### [facility] [address] [place] [address] [id number] Software Designer: Woody Leyva MD Urea nitrogen [Mass/Vol] 50 mg/dL High 03-22 [facility] Comment on above: Result Comment: - Ve nipuncture should occur prior to N-Acetyl Cysteine (NAC) or Metamizole (Sulpyrine) administration due to the potential for falsely depressed results. - Blood samples from some patients with monoclonal gammopathies may produce falsely elevated results Performed By: #### 1 73830, 034371, 8296899 #### [facility] [address] [place], [place] [address] Software Designer: Woody Leyva MD Urea nitrogen/Creatinine [Mass ratio] 21.7 mg/mg Normal [facility] Comment on above: Performed By: #### 1 61131, 622521, 5884447 #### [facility] [address] [place] [address] Software Designer: Woody Leyva MD Consult Reporton 09-19-2024 Consult [...] Advised him to follow-up with the regular hydraulic corrugating machine operator. Will try to obtain records however patient [...] CHLORIDE SYR/VIAL 10ML 3 mL, IV Push, [id number] Continuous: (0) PRN: (8) ACETAMINOPHEN 325 MG TAB 650 mg 2 tabs, ORAL, [id number] ACETAMINOPHEN 325 MG TAB 650 mg 2 tabs, ORAL, [id number] ACETAMINOPHEN 325 MG TAB 650 mg 2 tabs, ORAL, [id number] MELATONIN 5MG TAB 5 mg 1 tabs, ORAL, [id number] NALOXONE 0.4MG/1ML INJ 0.4 mg 1 mL, IV Push, PRN ONDANSETRON=ZOFRAN INJ 4 mg 2 mL, IV Push, [id number] SODIUM CHLORIDE SYR/VIAL 10ML 3 mL, IV Push, PRN TramADOL 50MG TABLET 50 mg 1 tabs, ORAL, [id number] Allergies (1) Active Severity Reaction No Known [...] available. BNP No qualifying data available. Normal [facility] HEMOon 09-19-2024 DIFF? No Normal [facility] Comment on above: Performed By: #### 1 77703, 853618, [id number] #### [facility] [address] [place] [address] 27167 Software Designer: Woody Leyva MD Erythrocyte distribution width (RBC) [Ratio] 14.0 % Normal 11.5-14.5 [facility] Comment on above: Performed By: #### 1 63987, 715857, 2997484 #### [facility] [address] [place] [address] 77280 Software Designer: Wooyd Leyva MD Hematocrit (Bld) [Volume fraction] 40.1 % Low 41.0-52.0 [facility] Comment on above: Performed By: #### 1 04594, 015456, 5435175 #### [facility] [address] [place] [address] 21922 Software Designer: Woody Leyva MD Hemoglobin (Bld) [Mass/Vol] 13.6 g/dL Normal 13.5-17.5 [facility] Comment on above: Performed By: #### 1 31922, 115231, 0891103 #### [facility] [address] [place] [address] 78621 Software Designer: Woody Leyva MD Instr WBC 7.8 Normal [facility] Comment on above: Performed By: #### 1 05769, 397016, 3718340 #### [facility] [address] [place] [address] 72318 Software Designer: Woody Leyva MD MCH (RBC) [Entitic mass] 34.6 pg High 27.0-34.0 [facility] Comment on above: Performed By: #### 1 16276, 738701, 7375909 #### [facility] [address] [place] [address] 66741 Software Designer: Woody Leyva MD MCHC (RBC) [Mass/Vol] 33.8 g/dL Normal 32.0-37.0 [facility] Comment on above: Performed By: #### 1 26640, 220678, 6678015 #### [facility] [address] [place] [address] 77859 Software Designer: Woody Leyva MD MCV (RBC) [Entitic vol] 102.2 fL High 80.0-100.0 [facility] Comment on above: Performed By: #### 1 36052, 891072, 7065026 #### [facility] [address] [place] [address] 53382 Software Designer: Woody Leyva MD Nucleated RBC 0 /100WBC Normal [facility] Comment on above: Performed By: #### 1 80165, 904517, 5845732 #### [facility] [address] [place] [address] 95389 Software Designer: Woody Leyva MD Platelet 186 x10 Normal 150-450 [facility] Comment on above: Performed By: #### 1 56325, 942609, 9497193 #### [facility] [address] [place] [address] 46952 Software Designer: Woody Leyva MD Platelet mean volume (Bld) [Entitic vol] 8.5 fL Normal 7.4-10.4 [facility] Comment on above: Performed By: #### 1 67063, 856299, 4260581 #### [facility] [address] [place] [address] 07581 Software Designer: Woody Leyva MD RBC 3.92 x10 Low 4.70-6.10 [facility] [facility] Comment on above: Result Comment: Note : RBC morphology is normal unless otherwise stated. Evaluation performed only if differential is requested. Performed By: #### 1 08398, [id number], [id number] #### [facility] [address] [place] [address] Software Designer: Woody Leyva MD WBC 7.8 x10 Normal 4.5-11.0 [facility] Comment on above: Performed By: #### 1 23658, [id number], [id number] #### [facility] [address] [place] [address] Software Designer: Woody Leyva MD Inpatient Patient Summaryon 09-19-2024 Inpatient Patient Summary [facility] Discharge Instructions [address] [place] [address] (Patient Copy) Name: CARLO MEDINA : 1980 Diagnosis: 1:Chest pain; 2:Vomiting; 3:Lactic acidosis Allergies: No Known Medication Allergies Registration Date: 09/17/24 [facility]#: [id number] Current Date Time: 09/19/2024 11:12:08 Address: [address] [place] [address] Primary Care Provider: Name: SHARI HIGGINS Phone: [phone] Thank you for choosing [facility] for your care. You are very important to us. Our goal is to demonstrate our high quality medical care and provide you with a very good patient experience. You may receive a survey about our service. Please take the time to complete the survey and return it so we can continue to enhance our service. Thank you again for allowing [facility] to care for your medical needs. If [...] Address: When: GIOVANI GARCIA, Cardiology [address] [place] [address] Business (1) Within 5 to 7 days Comments: Call 911 with signs/symptoms of Stroke. Call 911 with symptoms of Chest Pain. Call Dr if you have Shortness of Breath. This is a hydraulic corrugating machine operator here at [facility] that seen you in the ED [place] area. If you would like to use this hydraulic corrugating machine operator and his group, please give them a call for a follow-up appoint within 5-7 days OR you can find a hydraulic corrugating machine operator closer to home of you choice or one that is on your insurance. Thank You With: Address: When: Please follow-up with your Primary Care Dr and establish a Bun Panner of your choice. One will be provided below if you need a hydraulic corrugating machine operator here at [facility] With: Address: When: SHARI HIGGINS [address] [place] [address] [place], [place] [phone] Business (1) Within Call for Appointment If [...] until you (more content not included)... Normal [facility] Bolting Machine Operator Detailson 2024 Bolting Machine Operator Details Bolting Machine Operator Details Entered On: 09/19/2024 0:18 EDT Performed On: 09/19/2024 0:17 EDT by Berenice Reeder RN Bolting Machine Operator Details Transport Mode Order Detail EV : [...] Constant Order, Current ACLS Provider may, Initiate [place] [employer] Advanced Cardiac Life support Algorithm [...] EDT, Observation Outpatient with Observation Services, 1DOU, REAGAN GALAN DO, Chest discomfort, lactic acidosis, generalized fatigue, Ordered Transfer Care of Patient to Attending, 09/18/2024 00:07:00 EDT, Upon discharge from the ED, all continued medications and orders become the responsibility of the admitting/attending physician., Ordered [facility] [place] Task to Nursing, 09/17/2024 18:16:00 EDT, Constant Order, NPO, Ordered Isolation Precaution Order Detail EV : NONE IV Order Detail - EV : No Oxygen Order Detail EV : No Order Detail EV : No Pacemaker Order Detail : 0 Bolting Machine Operator Details Review Status : Reviewed, no changes Nurse Collects Blood Specimens : Berenice Hartmann RN - 09/19/2024 0:17 EDT Normal [facility] Comment on above: Order Comment: Order entered [...] CHLORIDE SYR/VIAL 10ML 3 mL, IV Push, [id number] Continuous: (0) PRN: (8) ACETAMINOPHEN 325 MG TAB 650 mg 2 tabs, ORAL, [id number] ACETAMINOPHEN 325 MG TAB 650 mg 2 tabs, ORAL, [id number] ACETAMINOPHEN 325 MG TAB 650 mg 2 tabs, ORAL, [id number] MELATONIN 5MG TAB 5 mg 1 tabs, ORAL, [id number] NALOXONE 0.4MG/1ML INJ 0.4 mg 1 mL, IV Push, PRN ONDANSETRON=ZOFRAN INJ 4 mg 2 mL, IV Push, [id number] SODIUM CHLORIDE SYR/VIAL 10ML 3 mL, IV Push, PRN TramADOL 50MG TABLET 50 mg 1 tabs, ORAL, [id number] Problem list: Active Problems (3) At risk [...] cleared he will be discharged today Normal [facility] APTTon 09-18-2024 aPTT Coag (Bld) [Time] 31.3 s Normal 26.0-36.0 So [facility] Comment on above: Result Comment: APTT Interpretation: This test has not been validated to monitor heparin therapy. APTT test is used as an initial test for suspected bleeding disorder. Anti-Xa UFH test is used to monitor heparin therapy. Performed By: #### 1 46285, [id number], 499497, 891333, 423665, 158528 #### [facility] [address] [place] [address] Software Designer: Woody Leyva MD AUTO DIFFon 09-18-2024 Baso Count 0.04 x1000 Normal 0.00-0.20 [facility] Comment on above: Performed By: #### 1 20135, 777241, [id number] #### [facility] [address] [place] [address] Software Designer: Woody Leyva MD Basos % 0.7 % Normal [facility] Comment on above: Performed By: #### 1 35575, 274088, [id number] #### [facility] [address] [place] [address] Software Designer: Woody Leyva MD Eos Count 0.02 x1000 Normal 0.00-0.50 [facility] Comment on above: Performed By: #### 1 82735, 375801, 8588247 #### [facility] [address] [place] [address] Software Designer: Woody Leyva MD Eosinophils/100 WBC (Bld) 0.4 % Normal [facility] Comment on above: Performed By: #### 1 38716, 391375, [id number] #### [facility] [address] [place] [address] Software Designer: Woody Leyva MD Lymph Count 1.36 x1000 Normal 1.20-4.80 [facility] Comment on above: Performed By: #### 1 72356, 522798, 1177082 #### [facility] [address] [place] [address] Software Designer: Woody Leyva MD Lymphocytes/100 WBC (Bld) 27.0 % Normal [facility] Comment on above: Performed By: #### 1 30272, 533821, [id number] #### [facility] [address] [place] [address] Software Designer: Woody Leyva MD Duplin Count 0.35 x1000 Normal 0.10-1.00 [facility] Comment on above: Performed By: #### 1 02303, 582039, [id number] #### [facility] [address] [place] [address] Software Designer: Woody Leyva MD Monocytes/100 WBC (Bld) 7.0 % Normal [facility] Comment on above: Performed By: #### 1 28985, 626167, [id number] #### [facility] [address] [place] [address] Software Designer: Woody Leyva MD Neutrophil Count (ANC) 3.26 x1000 Normal 1.40-8.80 So [facility] Comment on above: Performed By: #### 1 22044, 156891, [id number] #### [facility] [address] [place] [address] Software Designer: Woody Leyva MD Neutrophils/100 WBC (Bld) 64.9 % Normal [facility] Comment on above: Performed By: #### 1 66001, 919665, [id number] #### [facility] [address] [place] [address] Software Designer: Woody Leyva MD Admission Assessment Adulton 09-18-2024 Admission Assessment Adult Adult Admission Data Entered On: 09/18/2024 15:24 EDT Performed On: 09/18/2024 9:00 EDT by Nicole Manning RN Bon Patient Safety Grid ID Band on and Verified : Yes Nicole Manning RN 09/18/2024 15:21 EDT (As Of: 09/18/2024 15:24:06 EDT) Allergies (Active) No Known Medication Allergies Estimated Onset Date: Unspecified ; Created By: Talia Morales RN; Reaction Status: Active ; Category: [...] No Nicole Manning RN 09/18/2024 15:21 EDT Martin Coma Eye Opening Response Yesenia : Spontaneously Best Verbal Response Martin : Oriented Best Motor Response Yesenia : Obeys simple commands Martin Coma Score : 15 Nicole Manning RN [...] than 2 seconds Edema : None Nicole Manning RN 09/18/2024 15:21 EDT Respiratory Respirations : [...] Bladder Distention : Absent Nicole Manning RN - 09/18/2024 15:21 EDT Integumentary Skin Integrity : Intact Skin Temperature : Warm Skin Color : Roberdel Skin Turgor : Elastic Mucous Membrane Color : Roberdel Mucous Membrane Description : Dry Skin Description : Dry Nicole Manning RN - 09/18/2024 15:21 EDT Education Responsible Learner/s Present : No Data Available Barriers to Learning : None evident TeachBack Methodology : Explanation Nicole Manning RN - 09/18/2024 15:21 EDT Notifications PCP notified of your admission? : No Emergency Contact notified of your admission? : No Nicole Manning RN - 09/18/2024 15:21 EDT Normal [facility] Comment on above: Order Comment: Order entered secondary to admission Admission History Adulton Admission History Adult Patient History Model Entered On: 09/18/2024 15:25 EDT Performed On: 09/18/2024 15:24 EDT by Nicole Manning RN General Info Preferred Verbal : Lithuanian Contact Information : girlfriend Preferred Written : Lithuanian Currently or : Not Applicable Is patient a dialysis patient? : No Nicole Manning RN - 09/18/2024 15:24 EDT Problem List Problem List obtained from : Patient Nicole Manning RN - 09/18/2024 15:24 EDT (As Of: 09/18/2024 15:25:48 EDT) Problems(Active) At risk for falls (SNOMED CT :088958367 ) Name of Problem: At risk for falls ; Recorder: SYSTEM; Confirmation: Confirmed ; Classification: Nursing ; Code: [id number] ; Last Updated: 09/18/2024 00:13 EDT ; Life Cycle Date: 09/18/2024 ; Life Cycle Status: Active ; Vocabulary: SNOMED CT ; Comments: 09/18/2024 0:13 - SYSTEM Problem added automatically by system based on documentation of a admission to the hospital. Heart disease (SNOMED CT :89890029 ) Name of Problem: Heart disease ; Recorder: Nicole Manning RN; Confirmation: Confirmed ; Classification: Medical ; Code: [id number] ; Contributor System: [employer] ; Last Updated: 09/18/2024 11:31 EDT ; Life Cycle Date: 09/18/2024 ; Life Cycle Status: Active ; Responsible Provider: Nicole Manning RN; Vocabulary: SNOMED CT Kidney disease (SNOMED CT :831051452 ) Name of Problem: Kidney disease ; Recorder: Nicole Manning RN; Confirmation: Confirmed ; Classification: Medical ; Code: [id number] ; Contributor System: [employer] ; Last Updated: 09/18/2024 11:31 EDT ; Life Cycle Date: 09/18/2024 ; Life Cycle Status: Active ; Responsible Provider: Nicole Manning RN; Vocabulary: SNOMED CT Diagnoses(Active) chest burning Date: 09/17/2024 ; Diagnosis Type: Reason For Visit ; Confirmation: Confirmed ; Clinical Dx: chest burning ; Classification: Medical ; Clinical Service: Emergency medicine ; Code: PNED ; Probability: 0 ; Diagnosis Code: [id number] Chest pain Date: 09/18/2024 ; Diagnosis Type: [...] PNED ; Probability: 0 ; Diagnosis Code: [id number] Vomiting Date: 09/18/2024 ; Diagnosis Type: Discharge [...] to Visit : No Nicole Manning RN - 09/18/2024 15:24 EDT Advance Directive Advanced Directives [...] 48 hours. : No Nicole Manning RN - 09/18/2024 15:24 EDT Normal [facility] Comment on above: Order Comment: Order entered [...] Last Documented Height/Length : Height/Length Dosin cm 03/21/25 18:20:00 Height/Length Estimated: No results available. Height/Length Measured: No results available. Last Documented Weight and Type of Scale Used : Weight Measured Type of Scale: Patient Stated Weight 09/17/24 18:20:00 Weight Measured: No results available. Weight Dosing: No results available. Kerri EVANS, Nicole - 09/18/2024 11:30 EDT Belongings Valuables/Belongings Grid Valuables at Bedside Clothes : Other: Cell phone, Hat, T shirt, pants, socks, purple bag Kerri EVANS, Nicole - 09/18/2024 11:30 EDT Normal [facility] Comment on above: Order Comment: Order entered secondary to admission COMPMETAon 09-18-2024 GFR Estimated 41 [facility] Comment on above: Result Comment: The GFR is calculated and is Age, Sex and Race adjusted. Performed By: #### 1 46671, 674041, [id number] #### [facility] [address] [place], [place] [id number] Software Designer: Woody Leyva MD Albumin [Mass/Vol] 3.0 g/dL Low 3.4-5.0 [facility] Comment on above: Performed By: #### 1 36675, 504299, [id number] #### [facility] [address] [place] [address] Software Designer: Woody Leyva MD Albumin/Globulin [Mass ratio] 0.9 {ratio} [facility] Comment on above: Performed By: #### 1 70758, 946349, 8521675 #### [facility] [address] [place] [address] Software Designer: Woody Leyva MD Alk Phos 223 unit/L High 45-117 [facility] Comment on above: Performed By: #### 1 26031, 655210, 6689949 #### [facility] [address] [place] [address] Software Designer: Woody Leyva MD Bilirubin [Mass/Vol] 4.20 mg/dL High 0.30-1.20 [facility] Comment on above: Result Comment: Use of this assay is not recommended for patients undergoing treatment with eltrombopag due to the potential for falsely elevated results. Performed By: #### 1 10409, 470969, 9003999 #### [facility] [address] [place] [address] Software Designer: Woody Leyva MD Calcium [Mass/Vol] 9.1 mg/dL Normal 8.7-10.4 [facility] Comment on above: Performed By: #### 1 13449, 621482, 7731742 #### [facility] [address] [place] [address] Software Designer: Woody Leyva MD Chloride [Moles/Vol] 100 mmol/L Normal 98-107 [facility] Comment on above: Performed By: #### 1 52238, 307288, 4544437 #### [facility] [address] [place] [address] Software Designer: Woody Leyva MD CO2 [Moles/Vol] 26.0 mmol/L Normal 20.0-31.0 [facility] Comment on above: Performed By: #### 1 14517, 030401, 6172141 #### [facility] [address] [place] [address] Software Designer: Woody Leyva MD Creatinine [Mass/Vol] 2.1 mg/dL High 0.6-1.1 [facility] Comment on above: Performed By: #### 1 93906, 556019, 1387832 #### [facility] [address] [place] [address] Software Designer: Woody Leyva MD GFR AA 41 [facility] Comment on above: Result Comment: Afri can Marshallese GFR Calc Medical judgement is necessary to [...] for drug dosing. Performed By: #### 1 98464, 925909, [id number] #### [facility] [address] [place] [address] Software Designer: Woody Leyva MD Globulin (S) [Mass/Vol] 3.2 g/dL Normal [facility] Comment on above: Performed By: #### 1 81350, 656252, 8476786 #### [facility] [address] [place] [address] Software Designer: Woody Leyva MD Glomerular Filtration Rate 34 mL/min/1.73m? Normal [facility] Comment on above: Result Comment: Non- GFR [...] for drug dosing. Performed By: #### 1 46770, 924261, 0826170 #### [facility] [address] [place] [address] Software Designer: Woody Leyva MD Glucose [Mass/Vol] 175 mg/dL High 74-106 [facility] Comment on above: Performed By: #### 1 45267, 231438, 0185322 #### [facility] [address] [place] [address] Software Designer: Woody Leyva MD GOT 28 unit/L Normal 15-37 [facility] Comment on above: Performed By: #### 1 51511, 690450, 9428667 #### [facility] [address] [place] [address] Software Designer: Woody Leyva MD GPT 43 unit/L Normal 10-49 [facility] Comment on above: Performed By: #### 1 46654, 786469, 0890663 #### [facility] [address] [place] [address] Software Designer: Woody Leyva MD Osmolality [Osmolality] 295 mosm/kg Normal 275-295 [facility] Comment on above: Performed By: #### 1 23887, 597445, 3181251 #### [facility] [address] [place] [address] Software Designer: Woody Leyva MD Potassium [Moles/Vol] 3.6 mmol/L Normal 3.5-5.1 [facility] Comment on above: Result Comment: Spec imen slightly hemolyzed. Results may be affected. Performed By: #### 1 26856, 593881, 8067119 #### [facility] [address] [place] [address] Software Designer: Woody Leyva MD Protein [Mass/Vol] 6.2 g/dL Normal 5.7-8.2 [facility] Comment on above: Result Comment: Tota l Protein results may be increased in patients receiving dextran as a blood volume men's swim coach Performed By: #### 1 87138, 852584, 8810019 #### [facility] [address] [place] [address] Software Designer: Woody Leyva MD Sodium [Moles/Vol] 140 mmol/L Normal 135-145 [facility] Comment on above: Performed By: #### 1 01098, 343777, 6121668 #### [facility] [address] [place] [address] Software Designer: Woody Leyva MD Urea nitrogen [Mass/Vol] 45 mg/dL High 9-23 [facility] Comment on above: Result Comment: - Ve nipuncture should occur prior to N-Acetyl Cysteine (NAC) or Metamizole (Sulpyrine) administration due to the potential for falsely depressed results. - Blood samples from some patients with monoclonal gammopathies may produce falsely elevated results Performed By: #### 1 72962, 967952, 1860771 #### [facility] [address] [place], [place] [address] Software Designer: Woody Leyva MD Urea nitrogen/Creatinine [Mass ratio] 21.4 mg/mg Normal [facility] Comment on above: Performed By: #### 1 86576, 110748, 6747599 #### [facility] [address] [place], [place] [id number] Software Designer: Woody Leyva MD ED Physician Reporton 2024 ED Physician Report CARLO MEDINA :1980 Registration Date:09/17/2024 Basic Information Time Seen: ANASTASIYA BOSTON, SABINE / 09/17/2024 19:37 Arrival Mode: Walk-In _ [...] stated that he was recently seen at [facility] and was in the hospital last week [...] sodium chloride(Saline Flush), 3 mL, IV Push, [id number] sodium chloride(Saline Flush), 3 mL, IV Push, [...] EVANS, Talia, 09/17/2024 22:44:00 EDT, Specimen type: BASE WAD OPERATOR ADJUSTER Swab EKG ER, 09/17/2024 18:16:00 EDT, Chest Pain, Cart, Heart Meds Unknown at this time, STAT, No EKG/[place] Requested LACTATE, STAT, 09/17/2024 19:49:00 EDT Level [...] B(RAPID INFLU (more content not included)... Normal [facility] HEMOon 09-18-2024 DIFF? No Normal [facility] Comment on above: Performed By: #### 1 87243, 964844, [id number] #### [facility] [address] [place] [address] Software Designer: Woody Leyva MD Erythrocyte distribution width (RBC) [Ratio] 13.8 % Normal 11.5-14.5 [facility] Comment on above: Result Comment: Revi ewed Performed By: #### 1 14411, 989537, 5740371 #### [facility] [address] [place] [address] Software Designer: Woody Leyva MD Hematocrit (Bld) [Volume fraction] 40.8 % Low 41.0-52.0 [facility] Comment on above: Performed By: #### 1 76643, 940490, 3565135 #### [facility] [address] [place] [address] Software Designer: Woody Leyva MD Hemoglobin (Bld) [Mass/Vol] 13.6 g/dL Normal 13.5-17.5 [facility] Comment on above: Performed By: #### 1 09457, 448425, 8656098 #### [facility] [address] [place] [address] 93057 Software Designer: Woody Leyva MD Instr WBC 5.0 Normal [facility] Comment on above: Performed By: #### 1 , 437033, [id number] #### [facility] [address] [place] [address] Software Designer: Woody Leyva MD MCH (RBC) [Entitic mass] 34.4 pg High 27.0-34.0 [facility] Comment on above: Performed By: #### 1 35918, 134204, 7463930 #### [facility] [address] [place] [address] Software Designer: Woody Leyva MD MCHC (RBC) [Mass/Vol] 33.3 g/dL Normal 32.0-37.0 [facility] Comment on above: Performed By: #### 1 18970, 174028, 3526473 #### [facility] [address] [place] [address] Software Designer: Woody Leyva MD MCV (RBC) [Entitic vol] 103.4 fL High 80.0-100.0 [facility] Comment on above: Performed By: #### 1 80687, 669758, 0256145 #### [facility] [address] [place] [address] Software Designer: Woody Leyva MD Nucleated RBC 0 /100WBC Normal [facility] Comment on above: Performed By: #### 1 59776, 514355, 2952746 #### [facility] [address] [place] [address] 9[address] Software Designer: Woody Leyva MD Platelet 179 x10 Normal 150-450 [facility] Comment on above: Performed By: #### 1 84926, 346621, 2644554 #### [facility] [address] [place] [address] 21390 Software Designer: Woody Leyva MD Platelet mean volume (Bld) [Entitic vol] 8.1 fL Normal 7.4-10.4 [facility] Comment on above: Performed By: #### 1 08805, 708899, 8504363 #### [facility] [address] [place] [address] 5[address]28 Software Designer: Woody Leyva MD RBC 3.94 x10 Low 4.70-6.10 [facility] Comment on above: Result Comment: Note : RBC morphology is normal unless otherwise stated. Evaluation performed only if differential is requested. Performed By: #### 1 77192, 592840, [id number] #### [facility] [address] [place] [address] Software Designer: Woody Leyva MD WBC 5.0 x10 Normal 4.5-11.0 [facility] Comment on above: Performed By: #### 1 25254, 039149, [id number] #### [facility] [address] [place] [address] Software Designer: Woody Leyva MD LACTATEon 09-18-2024 Lactate [Moles/Vol] 2.6 mmol/L High 0.5-2.2 [facility] Comment on above: Order Comment: Sepsi [...] falsely depressed results Performed By: #### 1 42759, 834755, [id number] #### [facility] [address] [place] [address] Software Designer: Woody Leyva MD Bolting Machine Operator Detailson 2024 Bolting Machine Operator Details Bolting Machine Operator Details Entered On: 09/18/2024 11:32 EDT Performed On: 09/18/2024 8:00 EDT by Nicole Manning RN Bolting Machine Operator Details Transport Mode Order Detail EV : Wheelchair Isolation Precautions RTF : Communication CONSTANT Order, 09/18/2024 09:58:00 EDT, Constant Order, STAT EKG for Chest Pain, STAT ABGs for Acute Respiratory Distress, STAT Potassium/Magnesium for any significant change in condition/rhythm, Ordered Communication CONSTANT Order, 09/18/2024 09:58:00 EDT, Constant Order, Current ACLS Provider may, Initiate [place] [employer] Advanced Cardiac Life support Algorithm [...] : No Pacemaker Order Detail : 0 Bolting Machine Operator Details Review Status : Initial Review Nurse Collects Blood Specimens : Lluvia Manning RN, Nicole - 09/18/2024 11:32 EDT Normal [facility] Comment on above: Order Comment: Order entered secondary to admission PT INRon 09-18-2024 INR Coag (PPP) [Relative time] 1.4 {INR} Normal [facility] Comment on above: Order Comment: was n ot able to obtain blue top with first stick, pt would not let me stick twice. notified CRISTINE Kowalski 09/17/2024 23:15:27 EDT AJ Result Comment: INR Reference Range: Normal reference range for INR on patients not on anticoagulant therapy: 0.9-1.1 General therapeutic range for patients on anticoagulant therapy: 2.0-3.5 Performed By: #### 1 22396, 300217, 292275, 290875, 709889, 722296 #### [facility] [address] [place] [address] Software Designer: Woody Leyva MD Protime Patient 15.9 seconds High 9.8-12.4 [facility] Comment on above: Order Comment: was n ot able to obtain blue top with first stick, pt would not let me stick twice. 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 Attending made aware. Normal [facility] TROPONIN HS 2HRon 09-18-2024 Delta Troponin 2 Hr 0 pg/mL Normal 0-14 [facility] Comment on above: Result Comment: [...] percentile reference range Performed By: #### 1 16347, 338862, [id number] #### [facility] [address] [place] [address] Software Designer: Woody Leyva MD Troponin HS 2 Hr 34 pg/mL Normal 3-53 [facility] Comment on above: Result Comment: Spec imens from some individuals with pathologically high gamma globulin levels may demonstrate depressed troponin values Performed By: #### 1 39377, 150771, [id number] #### [facility] [address] [place] [address] Software Designer: Woody Levya MD TROPONIN HS 6HRon 09-18-2024 Delta Troponin 6 Hr 3 pg/mL Normal 0-14 [facility] Comment on above: Order Comment: 6hr t roph is due @ 0509 from baseline draw [...] percentile reference range Performed By: #### 1 83126, 106170, 3407756 #### [facility] [address] [place] [address] Software Designer: Woody Leyva MD Troponin HS 6 Hr 31 pg/mL Normal 3-53 [facility] Comment on above: Order Comment: 6hr t roph is due @ 0509 from baseline draw 09/18/2024 03:05:57 EDT AJ Result Comment: Spec imens from some individuals with pathologically high gamma globulin levels may demonstrate depressed troponin values Performed By: #### 1 30137, 341088, [id number] #### [facility] [address] [place] [address] Software Designer: Woody Leyva MD AUTO DIFFon 09-17-2024 Baso Count 0.05 x1000 Normal 0.00-0.20 [facility] Comment on above: Performed By: #### 7 [id number] #### [facility] [address] [place] [address] Software Designer: Woody Leyva MD Basos % 0.6 % Normal [facility] Comment on above: Performed By: #### 7 [id number] #### [facility] [address] [place] [address] Software Designer: Woody Leyva MD Eos Count 0.02 x1000 Normal 0.00-0.50 [facility] Comment on above: Performed By: #### 7 [id number] #### [facility] [address] [place] [address] Software Designer: Woody Leyva MD Eosinophils/100 WBC (Bld) 0.2 % Normal [facility] Comment on above: Performed By: #### 7 [id number] #### [facility] [address] [place] [address] Software Designer: Woody Leyva MD Lymph Count 2.16 x1000 Normal 1.20-4.80 [facility] Comment on above: Performed By: #### 7 [id number] #### [facility] [address] [place] [address] Software Designer: Woody Leyva MD Lymphocytes/100 WBC (Bld) 29.0 % Normal [facility] Comment on above: Performed By: #### 7 [id number] #### [facility] [address] [place] [address] Software Designer: Woody Leyva MD Duplin Count 0.50 x1000 Normal 0.10-1.00 [facility] Comment on above: Performed By: #### 7 [id number] #### [facility] [address] [place] [address] Software Designer: Woody Leyva MD Monocytes/100 WBC (Bld) 6.7 % Normal [facility] Comment on above: Performed By: #### 7 [id number] #### [facility] [address] [place] [address] Software Designer: Woody Leyva MD Neutrophil Count (ANC) 4.72 x1000 Normal 1.40-8.80 [facility] Comment on above: Performed By: #### 7 [id number] #### [facility] [address] [place] [address] Software Designer: Woody Leyva MD Neutrophils/100 WBC (Bld) 63.4 % Normal [facility] Comment on above: Performed By: #### 7 [id number] #### [facility] [address] [place] [address] Software Designer: Woody Leyva MD Red Blood Cell Morphology See Notes Abnormal [facility] Comment on above: Result Comment: Macr ocytosis 1+ Anisocytosis 1+ Performed By: #### 7 [id number] #### [facility] [address] [place] [address] Software Designer: Woody Leyva MD Addendum Noteon 09-17-2024 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 Interface Message Text Addended by: EVA ISAACS on: 09/17/2024 04:17 PM Modules accepted: Orders Normal [employer] CNOVon 09-17-2024 CNOV Office Visit ([facility] ) CARLO MEDINA ([id number]) 1980 M Date Time Provider Department 09/17/24 5:40 PM KING MEDINA [facility] During your visit today, we recorded the following information about you: Pulse Respiration Blood pressure 109/minute 16/minute 108/85 King Medina, DO 09/17/2024 6:40 PM Signed [facility] Subjective Carlo Medina is a 44 year [...] CHF, cardiac event that appears to be [place], though Patient denies [place]. Recently was hospitalized with kidney failure at [facility] and discharged ~5 days ago. Has had [...] (primary diagnosis) Given hx, symptoms, EMS called. [facility] EMS arrived within minutes to take Patient to ED. Patient appears stable upon leaving [facility] for ED via EMS. - ECG COMPLETE - Cancelled. We attempted to obtain an EKG here, but EMS arrived, and Patient was taken by squad to ED. 2. Nausea vomiting and diarrhea - ICD9: 787.91, 787.01, ICD10: R11.2, R19.7 King Medina, DO History and Record Review External record(s) reviewed: prior inpatient record. Findings from review of inpatient records: Multiple admissions for CHF, Kidney failure, AZ recently Differential Diagnoses - Concern for cardiac, dehydration, kidney issues is more likely for the following reason(s): suggested by HANDP Contributing Factors Chronic conditions affecting care: CHF, [place], Kidney Disease Chronic conditions addressed by: CHF, [place], Kidney disease - co-morbidities/risk factors. Disposition The patient was other (comment) (ED via EMS). Pamela Cueto LPN 09/17/2024 6:40 PM Signed [facility] and Remote Sites Emergency Response Form. NOT TO BE USED AT MAIN CAMPUS Complete this report when the Emergency Medical Response is activated (911 calls/EmergencyTransp ort to the ED) or when a Code Sheet is utilized in the care of a patient (i.e., ASC) Date of the Event: (Must provide Value) Time of the Event:5:43pm (Must provide Value) Was emergency response activated? (Local EMS/Emergency Department) YES (Must provide Value) Location of the Incident:[facility] ([facility]) (Must provide Value) Reason/Chief Complaint for Emergency Call (Check all that apply): Chest Pain/Pressure (Must provide Value) (more content not included)... Normal [facility] COMPMETAon 09-17-2024 Albumin [Mass/Vol] 3.1 g/dL Low 3.4-5.0 [facility] Comment on above: Performed By: #### 1 53101, 230719, 121440, 948074, 196994, 106382 #### [facility] [address] [place], [place] [address] Software Designer: Woody Leyva MD Albumin/Globulin [Mass ratio] 1.0 {ratio} Normal [facility] Comment on above: Performed By: #### 1 24905, 568783, 513301, 145937, 751862, 976227 #### [facility] [address] [place] [address] Software Designer: Woody Leyva MD Alk Phos 219 unit/L High 45-117 [facility] Comment on above: Performed By: #### 1 79438, 547424, 147278, 136251, 005173, 209479 #### [facility] [address] [place] [address] Software Designer: Woody Leyva MD Bilirubin [Mass/Vol] 4.40 mg/dL High 0.30-1.20 [facility] Comment on above: Result Comment: Use of this assay is not recommended for patients undergoing treatment with eltrombopag due to the potential for falsely elevated results. Performed By: #### 1 44355, 047764, 265233, 558872, 021912, 768694 #### [facility] [address] [place] [address] Software Designer: Woody Leyva MD Calcium [Mass/Vol] 9.3 mg/dL Normal 8.7-10.4 [facility] Comment on above: Performed By: #### 1 90446, 882951, 045131, 616314, 776311, 091598 #### [facility] [address] [place] [address] Software Designer: Woody Leyva MD Chloride [Moles/Vol] 100 mmol/L Normal 98-107 [facility] Comment on above: Performed By: #### 1 10235, 691259, 385305, 320160, 206803, 932363 #### [facility] [address] [place] [address] Software Designer: Woody Leyva MD CO2 [Moles/Vol] 25.0 mmol/L Normal 20.0-31.0 [facility] Comment on above: Performed By: #### 1 20495, 319429, 143397, 052807, 298804, 084176 #### [facility] [address] [place] [address] Software Designer: Woody Leyva MD Creatinine [Mass/Vol] 2.0 mg/dL High 0.6-1.1 [facility] Comment on above: Performed By: #### 1 70460, 518450, 387552, 150412, 568108, 328103 #### [facility] [address] [place] [address] Software Designer: Woody Leyva MD GFR AA 44 [facility] Comment on above: Result Comment: Afri can [place]ese GFR Calc Medical judgement is necessary to [...] for drug dosing. Performed By: #### 1 67642, 455335, 705430, 415009, 331362, 602442 #### [facility] [address] [place] [address] Software Designer: Woody Leyva MD Globulin (S) [Mass/Vol] 3.2 g/dL Normal [facility] Comment on above: Performed By: #### 1 93215, 899196, 648152, 318771, 638398, 405771 #### [facility] [address] [place] [address] Software Designer: Woody Leyva MD Glomerular Filtration Rate 36 mL/min/1.73m? Normal [facility] Comment on above: Result Comment: Non- GFR [...] for drug dosing. Performed By: #### 1 47144, 317585, 588317, 977488, 813114, 737428 #### [facility] [address] [place] [address] Software Designer: Woody Leyva MD Glucose [Mass/Vol] 99 mg/dL Normal 74-106 [facility] Comment on above: Performed By: #### 1 37021, 732114, 311469, 160291, 981854, 868011 #### [facility] [address] [place] [address] Software Designer: Woody Leyva MD GOT 28 unit/L Normal 15-37 [facility] Comment on above: Performed By: #### 1 25124, 815200, 707429, 188945, 179751, 430744 #### [facility] [address] [place] [address] Software Designer: Woody Leyva MD GPT 45 unit/L Normal 10-49 [facility] Comment on above: Performed By: #### 1 85107, 760966, 977564, 720082, 510067, 398610 #### [facility] [address] [place] [address] Software Designer: Woody Leyva MD Osmolality [Osmolality] 292 mosm/kg Normal 275-295 [facility] Comment on above: Performed By: #### 1 64397, 368181, 280599, 249829, 851883, 838281 #### [facility] [address] [place] [address] Software Designer: Woody Leyva MD Potassium [Moles/Vol] 3.6 mmol/L Normal 3.5-5.1 [facility] Comment on above: Result Comment: Spec imen slightly hemolyzed. Results may be affected. 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 Performed By: #### 1 70697, 593897, 405165, 472753, 699214, 613835 #### [facility] [address] [place] [address] Software Designer: Woody Leyva MD Sodium [Moles/Vol] 141 mmol/L Normal 135-145 [facility] Comment on above: Performed By: #### 1 25650, 215495, 683276, 923862, 786151, 839801 #### [facility] [address] [place] [address] Software Designer: Woody Leyva MD Urea nitrogen [Mass/Vol] 43 mg/dL High 9-23 [facility] Comment on above: Result Comment: - Ve nipuncture should occur prior to N-Acetyl Cysteine (NAC) or Metamizole (Sulpyrine) administration due to the potential for falsely depressed results. - Blood samples from some patients with monoclonal gammopathies may produce falsely elevated results Performed By: #### 1 18866, 016202, 244011, 745459, 280305, 577160 #### [facility] [address] [place] [address]702 Software Designer: Woody Leyva MD Urea nitrogen/Creatinine [Mass ratio] 21.5 mg/mg Normal [facility] Comment on above: Performed By: #### 1 70130, 932393, 422971, 908087, 214187, 902292 #### [facility] [address] [place] [address]19 Software Designer: Woody Leyva MD HEMOon 09-17-2024 DIFF? No Normal [facility] Comment on above: Performed By: #### 7 [id number] #### [facility] [address] [place] [address] Software Designer: Woody Leyva MD Erythrocyte distribution width (RBC) [Ratio] 17.7 % High 11.5-14.5 [facility] Comment on above: Performed By: #### 7 [id number] #### [facility] [address] [place] [address] Software Designer: Woody Leyva MD Hematocrit (Bld) [Volume fraction] 46.5 % Normal 41.0-52.0 [facility] Comment on above: Performed By: #### 7 [id number] #### [facility] [address] [place] [address]86 Software Designer: Woody Leyva MD Hemoglobin (Bld) [Mass/Vol] 15.1 g/dL Normal 13.5-17.5 [facility] Comment on above: Performed By: #### 7 [id number] #### [facility] [address] [place] [address] Software Designer: Woody Leyva MD Instr WBC 7.5 Normal [facility] Comment on above: Performed By: #### 7 [id number] #### [facility] [address] [place] [address] Software Designer: Woody Leyva MD MCH (RBC) [Entitic mass] 34.4 pg High 27.0-34.0 [facility] Comment on above: Performed By: #### 7 [id number] #### [facility] [address] [place], [place] [address] Software Designer: Woody Lyeva MD MCHC (RBC) [Mass/Vol] 32.4 g/dL Normal 32.0-37.0 [facility] Comment on above: Performed By: #### 7 [id number] #### [facility] [address] [place] [address] Software Designer: Woody Leyva MD MCV (RBC) [Entitic vol] 106.1 fL High 80.0-100.0 [facility] Comment on above: Performed By: #### 7 [id number] #### [facility] [address] [place] [address] Software Designer: Woody Leyva MD MDW 20.98 High 13.98-20.00 [facility] Comment on above: Result Comment: MDW Interpretation: [...] risk of Sepsis. Performed By: #### 7 [id number] #### [facility] [address] [place] [address] Software Designer: Woody Leyva MD Nucleated RBC 0 /100WBC Normal [facility] Comment on above: Performed By: #### 7 [id number] #### [facility] [address] [place] [address]49 Software Designer: Woody Leyva MD Platelet 236 x10 Normal 150-450 [facility] Comment on above: Performed By: #### 7 [id number] #### [facility] [address] [place] [address] Software Designer: Woody Leyva MD Platelet mean volume (Bld) [Entitic vol] 8.4 fL Normal 7.4-10.4 [facility] Comment on above: Performed By: #### 7 [id number] #### [facility] [address] [place], [place] [address] Software Designer: Woody Leyva MD RBC 4.38 x10 Low 4.70-6.10 [facility] Comment on above: Result Comment: Note : RBC morphology is normal unless otherwise stated. Evaluation performed only if differential is requested. Performed By: #### 7 [id number] #### [facility] [address] [place] [address] Software Designer: Woody Leyva MD WBC 7.5 x10 Normal 4.5-11.0 [facility] Comment on above: Performed By: #### 7 [id number] #### [facility] [address] [place] [address]31 Software Designer: Woody Leyva MD LACTATEon 09-17-2024 Lactate [Moles/Vol] 3.2 mmol/L High 0.5-2.2 [facility] Comment on above: Result Comment: Spec imen icteric. Results may be affected. Venipuncture should occur prior to N-Acetyl Cysteine (NAC) administration due to the potential for falsely depressed results Performed By: #### 1 80415, 290694, 4128392 #### [facility] [address] [place] [address] 20942 Software Designer: Woody Leyva MD LIPon 09-17-2024 Lipase [Catalytic activity/Vol] 20 U/L Normal 12-53 [facility] Comment on above: Performed By: #### 1 36575, 342819, 070080, 798772, 411730, 742430 #### [facility] [address] [place] [address]38 Software Designer: Woody Leyva MD MG LEVELon 09-17-2024 Magnesium [Mass/Vol] 2.2 mg/dL Normal 1.6-2.6 [facility] Comment on above: Performed By: #### 1 26218, 381202, 630881, 118749, 184364, 936490 #### [facility] [address] [place] [address]347 Software Designer: Woody Leyva MD Patient Instructionson 09-17 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 Interface Message Text Normal [facility] Progress Noteson 09-17-2024 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 Interface Message Text Identification was verified by patient verbalizing his name and date of . Normal [facility] 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 Interface Message Text Normal [facility] SED RATEon 09-17-2024 Sed Rate Westergren 9 mm/hr Normal 0-15 [facility] Comment on above: Performed By: #### 7 [id number] #### [facility] [address] [place] [address] Software Designer: Woody Leyva MD THY GPon 09-17-2024 Free T4 [Mass/Vol] 1.80 ng/dL High 0.89-1.76 [facility] Comment on above: Result Comment: - Th e anticonvulsant drug phenytoin may interfere with total and free T4 levels due to competition for TBG binding sites - Free T4 values may be decreased in patients with non-thyroidal conditions and in patients taking carbamazepine Performed By: #### 1 66449, 734275, 173378, 675990, 543902, 724006 #### [facility] [address] [place] [address] Software Designer: Woody Leyva MD TSH Qn 0.29 m[IU]/L Low 0.55-4.78 [facility] Comment on above: Result Comment: - Do [...] Reference: [email or web address] (03/2023) Performed By: #### 1 34969, 124097, 910588, 205365, 416751, 664711 #### [facility] [address] [place] [address] Software Designer: Woody Leyva MD TROPONIN HS 0HRon 09-17-2024 Troponin HS 0 Hr 34 pg/mL Normal 3-53 [facility] Comment on above: Result Comment: Spec imens from some individuals with pathologically high gamma globulin levels may demonstrate depressed troponin values Performed By: #### 7 [id number] #### [facility] [address] [place] [address] Software Designer: Woody Leyva MD UAon 09-17-2024 Appearance, U Hazy Abnormal Clear [facility] Comment on above: Performed By: #### 7 [id number] #### [facility] [address] [place] [address] Software Designer: Woody Leyva MD Bilirubin, U 0.5 mg/dl Abnormal Negative [facility] Comment on above: Result Comment: Bili waite, U: Initial positive urine bilirubin results are not confirmed. Interfering substances may include elevated urobilinogen. Trace = 0.5-1.0 mg/dL Small = 2.0-4.0 mg/dL Moderate = 6.0-8.0 mg/dL Large = 10 mg/dl and greater Performed By: #### 7 [id number] #### [facility] [address] [place] [address] Software Designer: Woody Leyva MD Blood, U Negative Normal Negative [facility] Comment on above: Result Comment: Bloo d, U: Trace = 0.03-0.05 mg/dL Small = 0.06-0.1 mg/dL Moderate = 0.2-0.5 mg/dL Large = 1.0 mg/dL and greater Performed By: #### 7 [id number] #### [facility] [address] [place] [address] Software Designer: Woody Leyva MD Color, U Dark-Yellow Normal Yellow [facility] Comment on above: Performed By: #### 7 [id number] #### [facility] [address] [place] [address] Software Designer: Woody Leyva MD Glucose Qual, U Negative Normal Negative [facility] Comment on above: Performed By: #### 7 [id number] #### [facility] [address] [place] [address] Software Designer: Woody Leyva MD Hyaline Cast 2 #/HPF Normal [facility] Comment on above: Performed By: #### 7 [id number] #### [facility] [address] [place] [address] Software Designer: Woody Leyva MD Ketones, U Negative Normal Negative [facility] Comment on above: Performed By: #### 7 [id number] #### [facility] [address] [place] [address] Software Designer: Woody Leyva MD Leukocyte Esterase, U Negative Normal Negative [facility] Comment on above: Result Comment: Leuk ocyte Esterase, U: Trace = 25 Nicky/uL Small = 75 Nicky/uL Moderate = 250 Nicky/uL Large = 500 Nicky/uL and greater Performed By: #### 7 [id number] #### [facility] [address] [place] [address] Software Designer: Woody Leyva MD Mucous, U Occasional Normal [facility] Comment on above: Performed By: #### 7 [id number] #### [facility] [address] [place] [address] Software Designer: Woody Leyva MD Nitrite, U Negative Normal Negative [facility] Comment on above: Performed By: #### 7 [id number] #### [facility] [address] [place] [address] Software Designer: Woody Leyva MD pH, U 5.5 Normal 4.5-8.0 [facility] Comment on above: Performed By: #### 7 [id number] #### [facility] [address] [place] [address] Software Designer: Woody Leyva MD Protein, U 100 mg/dl Abnormal Negative [facility] Comment on above: Performed By: #### 7 [id number] #### [facility] [address] [place] [address] Software Designer: Woody Leyva MD Specific [place], U 1.032 Normal 1.001-1.035 [facility] Comment on above: Performed By: #### 7 [id number] #### [facility] [address] [place] [address] Software Designer: Woody Leyva MD U MICRO Indicated Normal [facility] Comment on above: Performed By: #### 7 [id number] #### [facility] [address] [place] [address] Software Designer: Woody Leyva MD U SPERM Present Normal [facility] Comment on above: Performed By: #### 7 [id number] #### [facility] [address] [place] [address] Software Designer: Woody Leyva MD Urobilinogen Qual, U 4 mg/dl Abnormal < 2 mg/dl [facility] Comment on above: Result Comment: Urob ilinogen, U: EU/dl and mg/dl are equivalent units. Performed By: #### 7 [id number] #### [facility] [address] [place] [address] Software Designer: Woody Leyva MD WBC/HPF, U 1 #/HPF Normal 0-5 [facility] Comment on above: Performed By: #### 7 [id number] #### [facility] [address] [place] [address] Software Designer: Woody Leyva MD XR CHEST PORTABLEon 09-18-19 [...] Kt Silva MD 09/17/2024 08:07 PM EDT Technologist: CHAPIN Dictated By: KT SILVA Jr., MD Signed By: KT SILVA Jr., MD Signed Out: 09/17/24 20:07:50 Normal [facility] Progress Noteson 09-13-2024 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 Interface Message Text Normal [facility] [employer] [facility] Progress Noteson 09-11-2024 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 Interface Message Text Normal [facility] 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 Interface Message Text Normal [facility] Progress Notes - NoteWritero n 09-11-2024 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 Interface Message Text Normal [facility] LACTIC ACIDon 09-10-2024 CR LACT 2.6 mmol/L High 0.5-1.6 [facility] Comment on above: Order Comment: This test was developed, and its performance characteristics determined by the Department of Pathology of [facility]. It has not been cleared or approved by the FDA. This test is used for clinical purposes only. Performed By: #### L ACT ####[facility] [id number] [place], [place], Progress Noteson 09-10-2024 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 Interface Message Text Normal [facility] 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 Interface Message Text Normal [facility] Progress Notes - NoteWritero n 09-10-2024 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 Interface Message Text Normal [facility] BASIC METABOLIC PANELon 08-28 Anion gap [Moles/Vol] 15 mmol/L Normal 10-20 [facility] Comment on above: Performed By: #### H TICO MG, CH8 ####[facility] [id number] [place], [place], Calcium [Mass/Vol] 7.7 mg/dL Low 8.6-10.3 [facility] Comment on above: Performed By: #### H TICO MG, CH8 ####[facility] [id number] [place], [place], Chloride [Moles/Vol] 97 mmol/L Low 98-107 [facility] Comment on above: Performed By: #### H TICO MG, CH8 ####[facility] [id number] [place], CO2 [Moles/Vol] 31 mmol/L Normal 21-31 [facility] Comment on above: Performed By: #### H EPAMISAEL MG, CH8 ####[facility] [id number] [place], Creatinine [Mass/Vol] 1.81 mg/dL High 0.70-1.30 [facility] Comment on above: Performed By: #### MG GUNDERSON CH8 ####[facility] [id number] [place], ESTIMATED GFR (CKD-EPI) 46 mL/min/1.73sqm Low >=60 [facility] Comment [...] Inclusion of Race in Diagnosing Kidney Disease. [place] Journal of Kidney Diseases 2021;79(2):268-88.e1.2. N Engl J Med 1 Vol. 385 Issue 19 Pages 6933-2232 Performed By: #### MG GUNDERSON CH8 ####[facility] [id number] [place], Glucose [Mass/Vol] 110 mg/dL High 74-109 [facility] Comment on above: Performed By: #### MG GUNDERSON CH8 ####[facility] [id number] [place], Potassium [Moles/Vol] 3.9 mmol/L Normal 3.5-5.0 [facility] Comment on above: Performed By: #### MG NEPTALI CH8 ####[facility] [id number] [place], Sodium [Moles/Vol] 139 mmol/L Normal 136-145 [facility] Comment on above: Performed By: #### MG GUNDERSON CH8 ####[facility] [id number] [place], Urea nitrogen [Mass/Vol] 36 mg/dL High 7-25 [facility] Comment on above: Performed By: #### MG GUNDERSON CH8 ####[facility] [id number] [place], [place], CBC WITH DIFFERENTIALon 08-28 Basophils (Bld) [#/Vol] 0.07 10*3/uL Normal 0.00-0.20 [facility] Comment on above: Performed By: #### C BCDSAT ####[facility] PATHOLOGY [id number] [place], [place], Basophils/100 WBC (Bld) 0.8 % Normal <=1.9 [facility] Comment on above: Performed By: #### C BCDSAT ####[facility] PATHOLOGY [id number] [place], Eosinophils (Bld) [#/Vol] 0.09 10*3/uL Normal 0.00-0.70 [facility] Comment on above: Performed By: #### C BCDSAT ####[facility] PATHOLOGY [id number] [place] [address], Eosinophils/100 WBC (Bld) 1.0 % Normal 0.1-4.0 [facility] Comment on above: Performed By: #### C BCDSAT ####[facility] PATHOLOGY [id number] [place], [place], Erythrocyte distribution width (RBC) [Ratio] 13.8 % Normal 11.5-14.5 [facility] Comment on above: Performed By: #### C BCDSAT ####[facility] PATHOLOGY [id number] [place], [place], Hematocrit (Bld) [Volume fraction] 43.5 % Normal 41.0-53.0 [facility] Comment on above: Performed By: #### C BCDSAT ####[facility] PATHOLOGY [id number] [place], [place], Hemoglobin (Bld) [Mass/Vol] 14.7 g/dL Normal 13.9-16.3 [facility] Comment on above: Performed By: #### C BCDSAT ####[facility] PATHOLOGY [id number] [place], [place], Lymphocytes (Bld) [#/Vol] 2.51 10*3/uL Normal 1.00-4.80 [facility] Comment on above: Performed By: #### C MARYAT ####[facility] PATHOLOGY [id number] [place] [address], Lymphocytes/100 WBC (Bld) 28.5 % Normal 24.0-44.0 [facility] Comment on above: Performed By: #### C MARYAT ####[facility] PATHOLOGY [id number] [place] [address], MCH (RBC) [Entitic mass] 34.4 pg High 26.0-34.0 [facility] Comment on above: Performed By: #### C MARYAT ####[facility] PATHOLOGY [id number] [place] [address], MCHC (RBC) [Mass/Vol] 33.9 g/dL Normal 32.0-35.9 [facility] Comment on above: Performed By: #### Kelly HERNANDEZAT ####[facility] PATHOLOGY [id number] [place] [address], MCV (RBC) [Entitic vol] 102 fL High 80-100 [facility] Comment on above: Performed By: #### Kelly HERNANDEZAT ####[facility] PATHOLOGY [id number] [place] [address], Monocytes (Bld) [#/Vol] 0.69 10*3/uL Normal 0.20-1.00 [facility] Comment on above: Performed By: #### C MARYAT ####[facility] PATHOLOGY [id number] [place] [address], Monocytes/100 WBC (Bld) 7.8 % Normal 2.0-11.0 [facility] Comment on above: Performed By: #### Kelly HERNANDEZAT ####[facility] PATHOLOGY [id number] [place] [address], Neutrophils (Bld) [#/Vol] 5.46 10*3/uL Normal 1.50-8.00 [facility] Comment on above: Performed By: #### Kelly HERNANDEZAT ####[facility] PATHOLOGY [id number] [place] [address], [place], Neutrophils/100 WBC (Bld) 61.9 % Normal 31.0-76.0 [facility] Comment on above: Performed By: #### Kelly HERNANDEZAT ####S PATHOLOGY [id number] [place], [place], Platelet mean volume (Bld) [Entitic vol] 7.7 fL Normal 7.5-11.2 [facility] Comment on above: Performed By: #### Kelly HERNANDEZAT ####[facility] PATHOLOGY [id number] [place], Platelets (Bld) [#/Vol] 278 10*3/uL Normal 150-400 [facility] Comment on above: Performed By: #### Kelly HERNANDEZAT ####[facility] PATHOLOGY [id number] [place] [address], RBC (Bld) [#/Vol] 4.28 10*6/uL Low 4.50-5.90 [facility] Comment on above: Performed By: #### Kelly HERNANDEZAT ####[facility] PATHOLOGY [id number] [place], WBC (Bld) [#/Vol] 8.8 10*3/uL Normal 4.5-11.5 [facility] Comment on above: Performed By: ###Gonzalez HERNANDEZAT ####[facility] PATHOLOGY [id number] [place], HEPATIC FUNCTION PANELon Albumin [Mass/Vol] 3.6 g/dL Normal 3.5-5.7 [facility] Comment on above: Performed By: #### Bonilla EPATIC MG, CH8 ####S PATHOLOGY [id number] [place], [place], ALK 202 IU/L High 34-104 [facility] Comment on above: Performed By: #### Bonilla EPATIC, MG, CH8 ####[facility] [id number] [place], [place], ALT [Catalytic activity/Vol] 37 U/L Normal 7-52 [facility] Comment on above: Performed By: #### H MG TICO, CH8 ####[facility] PATHOLOGY [id number] [place], AST [Catalytic activity/Vol] 24 U/L Normal 13-39 [facility] Comment on above: Performed By: #### H MG TICO, CH8 ####[facility] PATHOLOGY [id number] [place] [address], Bilirubin [Mass/Vol] 2.2 mg/dL High 0.3-1.0 [facility] Comment on above: Performed By: #### MG NEPTALI, CH8 ####[facility] PATHOLOGY [id number] [place] [address], Bilirubin.direct [Mass/Vol] 0.79 mg/dL High 0.03-0.18 [facility] Comment on above: Performed By: #### MG NEPTALI, CH8 ####[facility] PATHOLOGY [id number] [place] [address], Protein [Mass/Vol] 6.1 g/dL Normal 6.0-8.3 [facility] Comment on above: Performed By: #### MG NEPTALI, CH8 ####[facility] PATHOLOGY [id number] [place] [address], MAGNESIUMon 09-09-2024 Magnesium [Mass/Vol] 1.5 mg/dL Low 1.9-2.7 [facility] Comment on above: Performed By: #### MG NEPTALI, CH8 ####[facility] PATHOLOGY [id number] [place] [address], PROTHROMBIN TIME AND INRon 0 09-09-2024 INR Coag (PPP) [Relative time] 1.24 {INR} High 0.90-1.10 [facility] Comment on above: Performed By: #### P T ####S PATHOLOGY [id number] [place] [address], PT Coag (PPP) [Time] 13.9 s High 9.7-12.9 [facility] Comment on above: Performed By: #### P T ####[facility] [id number] [place], [place], Progress Noteson 09-09-2024 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 Interface Message Text Normal [facility] 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 Interface Message Text Normal [facility] Progress Notes - NoteWritero n 09-09-2024 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 Interface Message Text Pt had 5 beats of NSVT on telemetry. When assessed, pt was laying supine with no complaints of being symptomatic. Chrissy DO notified. No further orders at this time. Normal [facility] BASIC METABOLIC PANELon 08-28 Anion gap [Moles/Vol] 17 mmol/L Normal 10-20 [facility] Comment on above: Performed By: #### MG NEPTALI CH8 ####[facility] PATHOLOGY [id number] [place], Calcium [Mass/Vol] 7.9 mg/dL Low 8.6-10.3 [facility] Comment on above: Performed By: #### MG NEPTALI, CH8 ####[facility] PATHOLOGY [id number] [place], [place], Chloride [Moles/Vol] 96 mmol/L Low 98-107 [facility] Comment on above: Performed By: #### MG NEPTALI, CH8 ####[facility] PATHOLOG[facility] [id number] [place], CO2 [Moles/Vol] 32 mmol/L High 21-31 [facility] Comment on above: Performed By: #### MG NEPTALI, CH8 ####[facility] PATHOLOGY [id number] [place], Creatinine [Mass/Vol] 1.68 mg/dL High 0.70-1.30 [facility] Comment on above: Performed By: #### MG NEPTALI, CH8 ####[facility] PATHOLOG[facility] [id number] [place], ESTIMATED GFR (CKD-EPI) 50 mL/min/1.73sqm Low >=60 [facility] Comment on above: Result Comment: 2020 [...] Inclusion of Race in Diagnosing Kidney Disease. [place] Journal of Kidney Diseases 2021;79(2):268-88.e1.2. N Engl J Med 1 Vol. 385 Issue 19 Pages 3855-1002 Performed By: #### H MG TICO, CH8 ####S PATHOLOGY [id number] [place], Glucose [Mass/Vol] 101 mg/dL Normal 74-109 [facility] Comment on above: Performed By: #### MG NEPTALI, CH8 ####S PATHOLOGY [id number] [place], Potassium [Moles/Vol] 4.1 mmol/L Normal 3.5-5.0 [facility] Comment on above: Performed By: #### MG NEPTALI, CH8 ####S PATHOLOGY [id number] [place], Sodium [Moles/Vol] 141 mmol/L Normal 136-145 [facility] Comment on above: Performed By: #### MG NEPTALI, CH8 ####S PATHOLOGY [id number] [place], Urea nitrogen [Mass/Vol] 34 mg/dL High 7-25 [facility] Comment on above: Performed By: #### MG NEPTALI, CH8 ####[facility] [id number] [place], CBC WITH DIFFERENTIALon 08-28 Basophils (Bld) [#/Vol] 0.06 10*3/uL Normal 0.00-0.20 [facility] Comment on above: Performed By: #### C BCDSAT ####S PATHOLOGY [id number] [place], Basophils/100 WBC (Bld) 0.7 % Normal <=1.9 [facility] Comment on above: Performed By: #### C BCDSAT ####[facility] PATHOLOGY [id number] [place], Eosinophils (Bld) [#/Vol] 0.07 10*3/uL Normal 0.00-0.70 [facility] Comment on above: Performed By: #### C BCDSAT ####[facility] PATHOLOGY [id number] [place], Eosinophils/100 WBC (Bld) 0.8 % Normal 0.1-4.0 [facility] Comment on above: Performed By: #### C BCDSAT ####[facility] PATHOLOGY [id number] [place] [address], Erythrocyte distribution width (RBC) [Ratio] 13.6 % Normal 11.5-14.5 [facility] Comment on above: Performed By: #### C BCDSAT ####[facility] PATHOLOGY [id number] [place] [address], Hematocrit (Bld) [Volume fraction] 43.0 % Normal 41.0-53.0 [facility] Comment on above: Performed By: #### C BCDSAT ####[facility] PATHOLOGY [id number] [place] [address], Hemoglobin (Bld) [Mass/Vol] 14.4 g/dL Normal 13.9-16.3 [facility] Comment on above: Performed By: #### C BCDSAT ####[facility] PATHOLOGY [id number] [place] [address], Lymphocytes (Bld) [#/Vol] 2.29 10*3/uL Normal 1.00-4.80 [facility] Comment on above: Performed By: #### C BCDSAT ####S PATHOLOGY [id number] [place] [address], Lymphocytes/100 WBC (Bld) 27.3 % Normal 24.0-44.0 [facility] Comment on above: Performed By: #### C BCDSAT ####S PATHOLOGY [id number] [place] [address], MCH (RBC) [Entitic mass] 34.4 pg High 26.0-34.0 [facility] Comment on above: Performed By: #### C MARYAT ####[facility] PATHOLOGY [id number] [place], MCHC (RBC) [Mass/Vol] 33.4 g/dL Normal 32.0-35.9 [facility] Comment on above: Performed By: #### C MARYAT ####[facility] PATHOLOGY [id number] [place], MCV (RBC) [Entitic vol] 103 fL High 80-100 [facility] Comment on above: Performed By: #### C MARYAT ####[facility] PATHOLOGY [id number] [place], Monocytes (Bld) [#/Vol] 0.77 10*3/uL Normal 0.20-1.00 [facility] Comment on above: Performed By: #### C MARYAT ####[facility] PATHOLOGY [id number] [place], Monocytes/100 WBC (Bld) 9.1 % Normal 2.0-11.0 [facility] Comment on above: Performed By: #### C MARYAT ####[facility] PATHOLOGY [id number] [place], Neutrophils (Bld) [#/Vol] 5.21 10*3/uL Normal 1.50-8.00 [facility] Comment on above: Performed By: #### C MARYAT ####[facility] PATHOLOGY [id number] [place] [address], Neutrophils/100 WBC (Bld) 62.1 % Normal 31.0-76.0 [facility] Comment on above: Performed By: #### C MARYAT ####S PATHOLOGY [id number] [place], Platelet mean volume (Bld) [Entitic vol] 8.1 fL Normal 7.5-11.2 [facility] Comment on above: Performed By: #### C BCDSAT ####[facility] PATHOLOGY [id number] [place], Platelets (Bld) [#/Vol] 278 10*3/uL Normal 150-400 [facility] Comment on above: Performed By: #### Kelly BCDSAT ####[facility] PATHOLOGY [id number] [place], RBC (Bld) [#/Vol] 4.19 10*6/uL Low 4.50-5.90 [facility] Comment on above: Performed By: #### C BCDSAT ####[facility] PATHOLOGY [id number] [place], WBC (Bld) [#/Vol] 8.4 10*3/uL Normal 4.5-11.5 [facility] Comment on above: Performed By: #### Kelly HERNANDEZAT ####[facility] PATHOLOGY [id number] [place] [address], H AND Timo 09-08-2024 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 Interface Message Text Normal [facility] HEPATIC FUNCTION PANELon Albumin [Mass/Vol] 3.7 g/dL Normal 3.5-5.7 [facility] Comment on above: Performed By: #### MG NEPTALI, CH8 ####[facility] PATHOLOGY [id number] [place], [place], ALK 247 IU/L High 34-104 [facility] Comment on above: Performed By: #### MG NEPTALI, CH8 ####S PATHOLOGY [id number] [place], [place], ALT [Catalytic activity/Vol] 42 U/L Normal 7-52 [facility] Comment on above: Performed By: #### MG NEPTALI, CH8 ####S PATHOLOGY [id number] [place], [place], AST [Catalytic activity/Vol] 27 U/L Normal 13-39 [facility] Comment on above: Performed By: #### MG NEPTALI, CH8 ####S PATHOLOGY [id number] [place], Bilirubin [Mass/Vol] 2.2 mg/dL High 0.3-1.0 [facility] Comment on above: Performed By: #### H MG DOSHI CH8 ####[facility] PATHOLOGY [id number] [place], Bilirubin.direct [Mass/Vol] 0.85 mg/dL High 0.03-0.18 [facility] Comment on above: Performed By: #### H MG DOSHI CH8 ####[facility] PATHOLOGY [id number] [place] [address], Protein [Mass/Vol] 6.4 g/dL Normal 6.0-8.3 [facility] Comment on above: Performed By: #### H MG DOSHI CH8 ####[facility] PATHOLOGY [id number] [place] [address], LACTIC ACIDon 09-08-2024 CR LACT 2.6 mmol/L High 0.5-1.6 [facility] Comment on above: Order Comment: This test was developed, and its performance characteristics determined by the Department of Pathology of [facility]. It has not been cleared or approved by the FDA. This test is used for clinical purposes only. Performed By: #### L ACT ####[facility] PATHOLOGY [id number] [place] [address], MAGNESIUMon 09-08-2024 Magnesium [Mass/Vol] 1.4 mg/dL Low 1.9-2.7 [facility] Comment on above: Performed By: #### H MG DOSHI CH8 ####[facility] PATHOLOGY [id number] [place], [place], PROTHROMBIN TIME AND INRon 0 09-08-2024 INR Coag (PPP) [Relative time] 1.21 {INR} High 0.90-1.10 [facility] Comment on above: Performed By: #### P T ####[facility] PATHOLOGY [id number] [place] [address], PT Coag (PPP) [Time] 13.5 s High 9.7-12.9 [facility] Comment on above: Performed By: #### P T ####[facility] [id number] [place], [place], Progress Noteson 09-08-2024 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 Interface Message Text Pt had 5 beats of NSVT on telemetry. Pt observed laying down in bed, reports being asymptomatic. Chrissy DO notified. No further orders at this time. Normal [facility] 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 Interface Message Text Normal [facility] Disruptive Behavior Progress Noteon 09-07-2024 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 Interface Message Text Normal [facility] Progress Noteson 09-07-2024 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 Interface Message Text Normal [facility] 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 Interface Message Text Normal [facility] Transfer Noteon 09-07-2024 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 Interface Message Text Normal [facility] BASIC METABOLIC PANELon 08-28 Anion gap [Moles/Vol] 17 mmol/L Normal 10-20 [facility] Comment on above: Performed By: #### Kelly Simon, HEPATIC, MG ####[facility] [id number] [place], Calcium [Mass/Vol] 8.0 mg/dL Low 8.6-10.3 [facility] Comment on above: Performed By: #### Kelly Simon, HEPATIC, MG ####[facility] [id number] [place], Chloride [Moles/Vol] 96 mmol/L Low 98-107 [facility] Comment on above: Performed By: #### Kelly HGissel, HEPATIC, MG ####[facility] [id number] [place], CO2 [Moles/Vol] 29 mmol/L Normal 21-31 [facility] Comment on above: Performed By: #### Kelly HGissel, HEPATIC, MG ####[facility] [id number] [place], Creatinine [Mass/Vol] 1.85 mg/dL High 0.70-1.30 [facility] Comment on above: Performed By: #### Kelly HGissel, HEPATIC, MG ####[facility] [id number] [place], ESTIMATED GFR (CKD-EPI) 45 mL/min/1.73sqm Low >=60 [facility] Comment on above: Result Comment: 2020 [...] Inclusion of Race in Diagnosing Kidney Disease. [place] Journal of Kidney Diseases 2021;79(2):268-88.e1.2. N Engl J Med 1 Vol. 385 Issue 19 Pages 2301-6287 Performed By: #### C H8, HEPATIC, MG ####[facility] [id number] [place], Glucose [Mass/Vol] 133 mg/dL High 74-109 [facility] Comment on above: Performed By: #### C H8, HEPATIC, MG ####[facility] [id number] [place], Potassium [Moles/Vol] 3.9 mmol/L Normal 3.5-5.0 [facility] Comment on above: Performed By: #### C H8, HEPATIC, MG ####[facility] [id number] [place], Sodium [Moles/Vol] 138 mmol/L Normal 136-145 [facility] Comment on above: Performed By: #### C H8, HEPATIC, MG ####[facility] [id number] [place], Urea nitrogen [Mass/Vol] 39 mg/dL High 7-25 [facility] Comment on above: Performed By: #### C H8, HEPATIC, MG ####[facility] [id number] [place], Anion gap [Moles/Vol] 17 mmol/L Normal 10-20 [facility] Comment on above: Performed By: #### C H8, HEPATIC, MG ####[facility] [id number] [place], Calcium [Mass/Vol] 8.2 mg/dL Low 8.6-10.3 [facility] Comment on above: Performed By: #### C H8, HEPATIC, MG ####[facility] [id number] [place], Chloride [Moles/Vol] 98 mmol/L Normal 98-107 [facility] Comment on above: Performed By: #### C H8, HEPATIC, MG ####[facility] [id number] [place], CO2 [Moles/Vol] 29 mmol/L Normal 21-31 [facility] Comment on above: Performed By: #### C H8, HEPATIC, MG ####[facility] [id number] [place], Creatinine [Mass/Vol] 1.93 mg/dL High 0.70-1.30 [facility] Comment on above: Performed By: #### C H8, HEPATIC, MG ####[facility] [id number] [place], ESTIMATED GFR (CKD-EPI) 43 mL/min/1.73sqm Low >=60 [facility] Comment on above: Result Comment: 2020 [...] Inclusion of Race in Diagnosing Kidney Disease. [place] Journal of Kidney Diseases 2021;79(2):268-88.e1.2. N Engl J Med 1 Vol. 385 Issue 19 Pages 5421-3684 Performed By: #### C H8, HEPATIC, MG ####[facility] YYWEKLSPMX4619 [place], Glucose [Mass/Vol] 133 mg/dL High 74-109 [facility] Comment on above: Performed By: #### C H8, HEPATIC, MG ####[facility] [id number] [place], Potassium [Moles/Vol] 3.8 mmol/L Normal 3.5-5.0 [facility] Comment on above: Performed By: #### C H8, HEPATIC, MG ####[facility] [id number] [place], Sodium [Moles/Vol] 140 mmol/L Normal 136-145 [facility] Comment on above: Performed By: #### C H8, HEPATIC, MG ####[facility] [id number] [place], Urea nitrogen [Mass/Vol] 44 mg/dL High 7-25 [facility] Comment on above: Performed By: #### Kelly H8, HEPATIC, MG ####[facility] [id number] [place], CBC WITH DIFFERENTIALon 08-28-2024 Basophils (Bld) [#/Vol] 0.03 10*3/uL Normal 0.00-0.20 [facility] Comment on above: Performed By: #### C BCDSAT ####[facility] [id number] [place], Basophils/100 WBC (Bld) 0.3 % Normal <=1.9 [facility] Comment on above: Performed By: #### C BCDSAT ####[facility] [id number] [place], Eosinophils (Bld) [#/Vol] 0.06 10*3/uL Normal 0.00-0.70 [facility] Comment on above: Performed By: #### C BCDSAT ####[facility] [id number] [place], Eosinophils/100 WBC (Bld) 0.8 % Normal 0.1-4.0 [facility] Comment on above: Performed By: #### C BCDSAT ####[facility] [id number] [place], Erythrocyte distribution width (RBC) [Ratio] 13.9 % Normal 11.5-14.5 [facility] Comment on above: Performed By: #### C MARYAT ####[facility] PATHOLOGY [id number] [place], Hematocrit (Bld) [Volume fraction] 43.9 % Normal 41.0-53.0 [facility] Comment on above: Performed By: #### C MARYAT ####[facility] PATHOLOGY FVRAJNIFTO[address] [place] [address], Hemoglobin (Bld) [Mass/Vol] 14.8 g/dL Normal 13.9-16.3 [facility] Comment on above: Performed By: #### C MARYAT ####[facility] PATHOLOGY [id number] [place] [address], Lymphocytes (Bld) [#/Vol] 1.80 10*3/uL Normal 1.00-4.80 [facility] Comment on above: Performed By: #### C MARYAT ####[facility] PATHOLOGY [id number] [place] [address], Lymphocytes/100 WBC (Bld) 23.3 % Low 24.0-44.0 [facility] Comment on above: Performed By: #### Kelly HERNANDEZAT ####[facility] PATHOLOGY [id number] [place] [address], MCH (RBC) [Entitic mass] 34.3 pg High 26.0-34.0 [facility] Comment on above: Performed By: #### C MARYAT ####[facility] PATHOLOGY [id number] [place] [address], MCHC (RBC) [Mass/Vol] 33.7 g/dL Normal 32.0-35.9 [facility] Comment on above: Performed By: #### C MARYAT ####S PATHOLOGY [id number] [place], MCV (RBC) [Entitic vol] 102 fL High 80-100 [facility] Comment on above: Performed By: #### C MARYAT ####[facility] [id number] [place], Monocytes (Bld) [#/Vol] 0.57 10*3/uL Normal 0.20-1.00 [facility] Comment on above: Performed By: #### C BCDSAT ####[facility] PATHOLOGY [id number] [place], Monocytes/100 WBC (Bld) 7.3 % Normal 2.0-11.0 [facility] Comment on above: Performed By: #### C BCDSAT ####[facility] PATHOLOGY [id number] [place], Neutrophils (Bld) [#/Vol] 5.27 10*3/uL Normal 1.50-8.00 [facility] Comment on above: Performed By: #### C BCDSAT ####[facility] PATHOLOGY [id number] [place], Neutrophils/100 WBC (Bld) 68.2 % Normal 31.0-76.0 [facility] Comment on above: Performed By: #### C BCDSAT ####[facility] PATHOLOGY [id number] [place], Platelet mean volume (Bld) [Entitic vol] 7.4 fL Low 7.5-11.2 [facility] Comment on above: Performed By: #### C BCDSAT ####[facility] PATHOLOG[facility] [id number] [place], Platelets (Bld) [#/Vol] 268 10*3/uL Normal 150-400 [facility] Comment on above: Performed By: #### C BCDSAT ####[facility] PATHOLOG[facility] [id number] [place], RBC (Bld) [#/Vol] 4.31 10*6/uL Low 4.50-5.90 [facility] Comment on above: Performed By: #### C BCDSAT ####[facility] PATHOLOGY [id number] [place], WBC (Bld) [#/Vol] 7.7 10*3/uL Normal 4.5-11.5 [facility] Comment on above: Performed By: #### C BCDSAT ####[facility] PATHOLOGY [id number] [place], Basophils (Bld) [#/Vol] 0.04 10*3/uL Normal 0.00-0.20 [facility] Comment on above: Performed By: #### C BCDSAT ####[facility] PATHOLOGY [id number] [place] [address], Basophils/100 WBC (Bld) 0.6 % Normal <=1.9 [facility] Comment on above: Performed By: #### C BCDSAT ####[facility] PATHOLOGY [id number] [place] [address], Eosinophils (Bld) [#/Vol] 0.04 10*3/uL Normal 0.00-0.70 [facility] Comment on above: Performed By: #### C BCDSAT ####[facility] PATHOLOG[facility] [id number] [place] [address], Eosinophils/100 WBC (Bld) 0.6 % Normal 0.1-4.0 [facility] Comment on above: Performed By: #### C BCDSAT ####[facility] PATHOLOGY [id number] [place] [address], Erythrocyte distribution width (RBC) [Ratio] 13.9 % Normal 11.5-14.5 [facility] Comment on above: Performed By: #### C BCDSAT ####[facility] PATHOLOGY [id number] [place] [address], Hematocrit (Bld) [Volume fraction] 42.7 % Normal 41.0-53.0 [facility] Comment on above: Performed By: #### C BCDSAT ####[facility] PATHOLOGY [id number] [place] [address], Hemoglobin (Bld) [Mass/Vol] 14.6 g/dL Normal 13.9-16.3 [facility] Comment on above: Performed By: #### C BCDSAT ####[facility] PATHOLOGY [id number] [place] [address], Lymphocytes (Bld) [#/Vol] 1.71 10*3/uL Normal 1.00-4.80 [facility] Comment on above: Performed By: #### Kelly HERNANDEZAT ####[facility] PATHOLOG[facility] [id number] [place], Lymphocytes/100 WBC (Bld) 24.1 % Normal 24.0-44.0 [facility] Comment on above: Performed By: #### C MARYAT ####[facility] PATHOLOG[facility] [id number] [place], MCH (RBC) [Entitic mass] 34.2 pg High 26.0-34.0 [facility] Comment on above: Performed By: #### Kelly HERNANDEZAT ####[facility] PATHOLOG[facility] [id number] [place], MCHC (RBC) [Mass/Vol] 34.1 g/dL Normal 32.0-35.9 [facility] Comment on above: Performed By: #### Kelly HERNANDEZAT ####[facility] PATHOLOGY [id number] [place] [address], MCV (RBC) [Entitic vol] 100 fL Normal 80-100 [facility] Comment on above: Performed By: #### Kelly HERNANDEZAT ####[facility] PATHOLOG[facility] [id number] [place], Monocytes (Bld) [#/Vol] 0.62 10*3/uL Normal 0.20-1.00 [facility] Comment on above: Performed By: #### Kelly HERNANDEZAT ####[facility] PATHOLOG[facility] [id number] [place], Monocytes/100 WBC (Bld) 8.8 % Normal 2.0-11.0 [facility] Comment on above: Performed By: #### Kelly HERNANDEZAT ####[facility] PATHOLOG[facility] [id number] [place], Neutrophils (Bld) [#/Vol] 4.66 10*3/uL Normal 1.50-8.00 [facility] Comment on above: Performed By: #### C MARYAT ####S PATHOLOGY [id number] [place], Neutrophils/100 WBC (Bld) 66.0 % Normal 31.0-76.0 [facility] Comment on above: Performed By: #### Kelly HERNANDEZAT ####[facility] PATHOLOG[facility] [id number] [place], Platelet mean volume (Bld) [Entitic vol] 7.8 fL Normal 7.5-11.2 [facility] Comment on above: Performed By: #### Kelly HERNANDEZAT ####[facility] PATHOLOG[facility] [id number] [place], Platelets (Bld) [#/Vol] 279 10*3/uL Normal 150-400 [facility] Comment on above: Performed By: #### Kelly HERNANDEZAT ####[facility] PATHOLOG[facility] [id number] [place], RBC (Bld) [#/Vol] 4.26 10*6/uL Low 4.50-5.90 [facility] Comment on above: Performed By: #### Kelly HERNANDEZAT ####[facility] PATHOLOG[facility] [id number] [place], WBC (Bld) [#/Vol] 7.1 10*3/uL Normal 4.5-11.5 [facility] Comment on above: Performed By: #### Kelly HERNANDEZAT ####[facility] PATHOLOG[facility] [id number] [place], [place], H AND Timo 09-06-2024 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 Interface Message Text Normal [facility] HEPATIC FUNCTION PANELon Albumin [Mass/Vol] 3.7 g/dL Normal 3.5-5.7 [facility] Comment on above: Performed By: ###Gonzalez Simon, HEPATIC, MG ####S PATHOLOGY [id number] [place], ALK 224 IU/L High 34-104 [facility] Comment on above: Performed By: ###Gonzalez Simon, HEPATIC, MG ####[facility] PATHOLOG[facility] [id number] [place], ALT [Catalytic activity/Vol] 44 U/L Normal 7-52 [facility] Comment on above: Performed By: #### Kelly Simon, HEPATIC, MG ####S PATHOLOGY [id number] [place], AST [Catalytic activity/Vol] 25 U/L Normal 13-39 [facility] Comment on above: Performed By: #### Kelly Simon, HEPATIC, MG ####S PATHOLOGY [id number] [place], Bilirubin [Mass/Vol] 2.4 mg/dL High 0.3-1.0 [facility] Comment on above: Performed By: #### Kelly Simon, HEPATIC, MG ####[facility] [id number] [place], Bilirubin.direct [Mass/Vol] 0.81 mg/dL High 0.03-0.18 [facility] Comment on above: Performed By: #### Kelly Simon, HEPATIC, MG ####S PATHOLOGY [id number] [place], Protein [Mass/Vol] 6.4 g/dL Normal 6.0-8.3 [facility] Comment on above: Performed By: #### Kelly Simon, HEPATIC, MG ####S PATHOLOGY [id number] [place], Albumin [Mass/Vol] 3.6 g/dL Normal 3.5-5.7 [facility] Comment on above: Performed By: #### Kelly Simon, HEPATIC, MG ####[facility] [id number] [place], ALK 233 IU/L High 34-104 [facility] Comment on above: Performed By: #### Kelly Simon, HEPATIC, MG ####[facility] [id number] [place], ALT [Catalytic activity/Vol] 46 U/L Normal 7-52 [facility] Comment on above: Performed By: #### Kelly Simon, HEPATIC, MG ####[facility] [id number] [place], AST [Catalytic activity/Vol] 25 U/L Normal 13-39 [facility] Comment on above: Performed By: #### C H8, HEPATIC, MG ####[facility] PATHOLOG[facility] [id number] [place], Bilirubin [Mass/Vol] 2.7 mg/dL High 0.3-1.0 [facility] Comment on above: Performed By: #### C H8, HEPATIC, MG ####[facility] PATHOLOG[facility] [id number] [place], Bilirubin.direct [Mass/Vol] 1.04 mg/dL High 0.03-0.18 [facility] Comment on above: Performed By: #### Kelly H8, HEPATIC, MG ####[facility] PATHOLOG[facility] [id number] [place], Protein [Mass/Vol] 6.4 g/dL Normal 6.0-8.3 [facility] Comment on above: Performed By: #### Kelly H8, HEPATIC, MG ####[facility] PATHOLOG[facility] [id number] [place], LACTIC ACIDon 09-06-2024 CR LACT 3.2 mmol/L Critically high 0.5-1.6 [facility] Comment on above: Order Comment: This test was developed, and its performance characteristics determined by the Department of Pathology of [facility]. It has not been cleared or approved by the FDA. This test is used for clinical purposes only. Performed By: #### L ACT ####[facility] PATHOLOG[facility] [id number] [place], CR LACT 4.3 mmol/L Critically high 0.5-1.6 [facility] Comment on above: Order Comment: This test was developed, and its performance characteristics determined by the Department of Pathology of [facility]. It has not been cleared or approved by the FDA. This test is used for clinical purposes only. Performed By: #### L ACT ####[facility] PATHOLOG[facility] [id number] [place], CR LACT 3.4 mmol/L Critically high 0.5-1.6 [facility] Comment on above: Order Comment: This test was developed, and its performance characteristics determined by the Department of Pathology of [facility]. It has not been cleared or approved by the FDA. This test is used for clinical purposes only. Performed By: #### L ACT ####S PATHOLOGY [id number] [place], MAGNESIUMon 09-06-2024 Magnesium [Mass/Vol] 1.4 mg/dL Low 1.9-2.7 [facility] Comment on above: Performed By: #### C H8, HEPATIC, MG ####[facility] PATHOLOG[facility] [id number] [place], Magnesium [Mass/Vol] 1.5 mg/dL Low 1.9-2.7 [facility] Comment on above: Performed By: #### C H8, HEPATIC, MG ####[facility] PATHOLOG[facility] [id number] [place], PROTHROMBIN TIME AND INRon 0 09-06-2024 INR Coag (PPP) [Relative time] 1.26 {INR} High 0.90-1.10 [facility] Comment on above: Performed By: #### P T ####S PATHOLOGY [id number] [place], PT Coag (PPP) [Time] 14.1 s High 9.7-12.9 [facility] Comment on above: Performed By: #### P T ####S PATHOLOGY [id number] [place] [address], Progress Noteson 09-06-2024 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 Interface Message Text /GREG Lehman notified of critical lactate value of 3.2. /GREG Lehman read back critical results. New orders not received. Normal [facility] [employer] [facility] 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 Interface Message Text Normal The [facility] Authentication Interface Message Text Patient refusing dobutamine infusion at this time. Patient educated on importance of medication by RN. Dr Field notified immediately. Normal The 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 Interface Message Text Normal [facility] 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 Interface Message Text Patient refusing iv magnesium states I can't be hooked up to anything for 4 hours ' patient aware of need for med and consequences aware Normal [facility] 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 Interface Message Text Normal [facility] 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 Interface Message Text Dr. Carlson notified of critical lactic acid value of 3.4. Dr. Carlson read back critical results. New orders not received. Normal [facility] 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 Interface Message Text Normal [facility] 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 Interface Message Text Normal [facility] 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 Interface Message Text Patient refusing AM lab draw, stating only one person is able to get him because he is a hard stick, and unfortunately that person is not here right now. This RN asked patient if he would be willing to let her try, Patient stated no. Dr Tia MD notified. Normal [facility] [employer] Transfer Noteon 09-06-2024 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 Interface Message Text Normal [facility] [employer] BASIC METABOLIC PANELon Anion gap [Moles/Vol] 19 mmol/L Normal 10-20 [facility] [employer] [facility] Comment on above: Performed By: #### H AUGUSTO DOSHI, MG ####S PATHOLOGY [id number] [place], [place], Calcium [Mass/Vol] 8.6 mg/dL Normal 8.6-10.3 [facility] [employer] [facility] Comment on above: Performed By: #### H FERNANDO DOSHI8, MG ####[facility] [id number] [place], [place], Chloride [Moles/Vol] 95 mmol/L Low 98-107 [facility] [employer] [facility] Comment on above: Performed By: #### H FERNANDO DOSHI8, MG ####[facility] GKLGHGHMZY3187 [place], CO2 [Moles/Vol] 27 mmol/L Normal 21-31 [facility] [employer] [facility] Comment on above: Performed By: #### H FERNANDO DOSHI8, MG ####[facility] DFLHYCJZUM2067 [place], Creatinine [Mass/Vol] 2.40 mg/dL High 0.70-1.30 [facility] [employer] [facility] Comment on above: Performed By: #### H TICO, CH8, MG ####[facility] [id number] [place], ESTIMATED GFR (CKD-EPI) 33 mL/min/1.73sqm Low >=60 [facility] Comment on above: Result Comment: 2020 [...] Inclusion of Race in Diagnosing Kidney Disease. [place] Journal of Kidney Diseases 202;79(2):268-88.e1.2. N Engl J Med 2020 Vol. 385 Issue 19 Pages 4361-2556 Performed By: #### AUGUSTO GUNDERSON, MG ####[facility] PATH[facility] [id number] [place], Glucose [Mass/Vol] 151 mg/dL High 74-109 [facility] Comment on above: Performed By: #### AUGUSTO GUNDERSON, MG ####[facility] [id number] [place], Potassium [Moles/Vol] 3.5 mmol/L Normal 3.5-5.0 [facility] Comment on above: Performed By: #### AUGUSTO GUNDERSON, MG ####[facility] PATH[facility] [id number] [place], Sodium [Moles/Vol] 137 mmol/L Normal 136-145 [facility] Comment on above: Performed By: #### AUGUSTO GUNDERSON, MG ####[facility] PATH[facility] [id number] [place], Urea nitrogen [Mass/Vol] 49 mg/dL High 7-25 [facility] Comment on above: Performed By: #### AUGUSTO GUNDRESON, MG ####[facility] [id number] [place], CBC WITH DIFFERENTIALon 03-0 Basophils (Bld) [#/Vol] 0.03 10*3/uL Normal 0.00-0.20 [facility] Comment on above: Performed By: #### Kelly HERNANDEZAT ####[facility] PATHOLOGY [id number] [place] [address], Basophils/100 WBC (Bld) 0.5 % Normal <=1.9 [facility] Comment on above: Performed By: #### Kelly HERNANDEZAT ####[facility] PATHOLOGY [id number] [place] [address], Eosinophils (Bld) [#/Vol] 0.03 10*3/uL Normal 0.00-0.70 [facility] Comment on above: Performed By: #### Kelly HERNANDEZAT ####[facility] PATHOLOGY [id number] [place] [address], Eosinophils/100 WBC (Bld) 0.4 % Normal 0.1-4.0 [facility] Comment on above: Performed By: #### Kelly HERNANDEZAT ####[facility] PATHOLOGY [id number] [place] [address], Erythrocyte distribution width (RBC) [Ratio] 13.9 % Normal 11.5-14.5 [facility] Comment on above: Performed By: #### Kelly HERNANDEZAT ####[facility] PATHOLOGY [id number] [place] [address], Hematocrit (Bld) [Volume fraction] 45.3 % Normal 41.0-53.0 [facility] Comment on above: Performed By: #### Kelly HERNANDEZAT ####[facility] PATHOLOGY [id number] [place] [address], Hemoglobin (Bld) [Mass/Vol] 15.4 g/dL Normal 13.9-16.3 [facility] Comment on above: Performed By: #### Kelly HERNANDEZAT ####[facility] PATHOLOGY [id number] [place] [address], Lymphocytes (Bld) [#/Vol] 2.21 10*3/uL Normal 1.00-4.80 [facility] Comment on above: Performed By: #### C MARYAT ####[facility] PATHOLOGY [id number] [place], Lymphocytes/100 WBC (Bld) 33.5 % Normal 24.0-44.0 [facility] Comment on above: Performed By: #### C BCDSAT ####[facility] PATHOLOGY [id number] [place], MCH (RBC) [Entitic mass] 34.5 pg High 26.0-34.0 [facility] Comment on above: Performed By: #### C BCDSAT ####[facility] PATHOLOGY [id number] [place], MCHC (RBC) [Mass/Vol] 34.0 g/dL Normal 32.0-35.9 [facility] Comment on above: Performed By: #### C BCDSAT ####[facility] PATHOLOGY [id number] [place], MCV (RBC) [Entitic vol] 102 fL High 80-100 [facility] Comment on above: Performed By: #### C BCDSAT ####[facility] PATHOLOGY [id number] [place], Monocytes (Bld) [#/Vol] 0.64 10*3/uL Normal 0.20-1.00 [facility] Comment on above: Performed By: #### C BCDSAT ####[facility] PATHOLOGY [id number] [place], Monocytes/100 WBC (Bld) 9.7 % Normal 2.0-11.0 [facility] Comment on above: Performed By: #### C BCDSAT ####[facility] PATHOLOGY [id number] [place], Neutrophils (Bld) [#/Vol] 3.69 10*3/uL Normal 1.50-8.00 [facility] Comment on above: Performed By: #### C BCDSAT ####[facility] PATHOLOGY [id number] [place], Neutrophils/100 WBC (Bld) 56.0 % Normal 31.0-76.0 [facility] Comment on above: Performed By: #### Kelly HERNANDEZAT ####[facility] PATHOLOGY [id number] [place], Platelet mean volume (Bld) [Entitic vol] 8.6 fL Normal 7.5-11.2 [facility] Comment on above: Performed By: #### Kelly HERNANDEZAT ####[facility] PATHOLOGY [id number] [place], Platelets (Bld) [#/Vol] 274 10*3/uL Normal 150-400 [facility] Comment on above: Performed By: #### Kelly HERNANDEZAT ####[facility] PATHOLOGY [id number] [place], RBC (Bld) [#/Vol] 4.46 10*6/uL Low 4.50-5.90 [facility] Comment on above: Performed By: #### Kelly HERNANDEZAT ####[facility] PATHOLOGY [id number] [place], WBC (Bld) [#/Vol] 6.6 10*3/uL Normal 4.5-11.5 [facility] Comment on above: Performed By: ###Gonzalez HERNANDEZAT ####[facility] PATHOLOGY [id number] [place], [place], Consultson 09-05-2024 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 Interface Message Text Normal [facility] HEPATIC FUNCTION PANELon Albumin [Mass/Vol] 3.8 g/dL Normal 3.5-5.7 [facility] Comment on above: Performed By: #### AUGUSTO GUNDERSON, MG ####S PATHOLOGY [id number] [place], ALK 260 IU/L High 34-104 [facility] Comment on above: Performed By: #### AUGUSTO GUNDERSON, MG ####S PATHOLOGY [id number] [place], ALT [Catalytic activity/Vol] 52 U/L Normal 7-52 [facility] Comment on above: Performed By: #### AUGUSTO GUNDERSON, MG ####S PATHOLOGY [id number] [place], AST [Catalytic activity/Vol] 29 U/L Normal 13-39 [facility] Comment on above: Performed By: #### H AUGUSTO DOSHI, MG ####S PATHOLOGY [id number] [place], Bilirubin [Mass/Vol] 3.4 mg/dL High 0.3-1.0 [facility] Comment on above: Performed By: #### H AUGUSTO DOSHI, MG ####S PATHOLOGY [id number] [place], Bilirubin.direct [Mass/Vol] 1.38 mg/dL High 0.03-0.18 [facility] Comment on above: Performed By: #### AUGUSTO GUNDERSON, MG ####[facility] PATHOLOGY [id number] [place], Protein [Mass/Vol] 6.7 g/dL Normal 6.0-8.3 [facility] Comment on above: Performed By: #### AUGUSTO GUNDERSON, MG ####[facility] PATHOLOGY [id number] [place], LACTIC ACIDon 09-05-2024 CR LACT 2.4 mmol/L High 0.5-1.6 [facility] Comment on above: Order Comment: This test was developed, and its performance characteristics determined by the Department of Pathology of [facility]. It has not been cleared or approved by the FDA. This test is used for clinical purposes only. Performed By: #### L ACT ####[facility] PATHOLOGY [id number] [place], CR LACT 2.7 mmol/L High 0.5-1.6 [facility] Comment on above: Order Comment: This test was developed, and its performance characteristics determined by the Department of Pathology of [facility]. It has not been cleared or approved by the FDA. This test is used for clinical purposes only. Performed By: #### L ACT ####S PATHOLOGY [id number] [place], MAGNESIUMon 09-05-2024 Magnesium [Mass/Vol] 1.6 mg/dL Low 1.9-2.7 [facility] Comment on above: Performed By: #### H EPATIC, CH8, MG ####S PATHOLOGY [id number] [place], PROTHROMBIN TIME AND INRon 0 09-05-2024 INR Coag (PPP) [Relative time] 1.40 {INR} High 0.90-1.10 [facility] Comment on above: Performed By: #### P T ####[facility] [id number] [place], PT Coag (PPP) [Time] 15.7 s High 9.7-12.9 [facility] Comment on above: Performed By: #### P T ####[facility] PATHOLOGY [id number] [place], Progress Noteson 09-05-2024 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 Interface Message Text Normal [facility] 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 Interface Message Text Normal [facility] 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 Interface Message Text Normal [facility] 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 Interface Message Text Pt refused all AM lab draw Nalini Harp MD notified. Normal [facility] US AORTA IVC + DOPPLER(CLARICE)o n 09-05-2024 US AORTA IVC + DOPPLER(CLARICE) Normal [facility] US KIDNEY+BLADDERon 09-06-19 25 US KIDNEY+BLADDER Normal [facility] ALPHA 1 ANTITRYPSIN QUANTon 09-04-2024 A1A 197 mg/dL Normal 84-218 [facility] Comment on above: Performed By: #### A 1A, HEPATIC ####S PATHOLOGY [id number] [place], ANTIMITOCHONDRIAL SCRN AND T ITon 09-04-2024 ANTI-MITOCHONDRIAL AB Negative Normal Negative [facility] Comment on above: Order Comment: Elect ronically Signed Out by Yobani Yang MD on 09/09/2024.I certify that I personally conducted the diagnostic evaluation of the above specimen(s) and have rendered the final diagnosis(es). Performed By: #### S M MU S/T, AMA S/T ####S PATHOLOGY [id number] [place], BASIC METABOLIC PANELon 03-0 Anion gap [Moles/Vol] 23 mmol/L High 10-20 [facility] Comment on above: Performed By: #### Kelly Simon MG, CERU ####S PATHOLOGY [id number] [place], Anion gap [Moles/Vol] 21 mmol/L High 10-20 [facility] Comment on above: Performed By: #### AUGUSTO GUNDERSON, MG ####S PATHOLOGY [id number] [place], Calcium [Mass/Vol] 8.7 mg/dL Normal 8.6-10.3 [facility] Comment on above: Performed By: #### MG Deja, CERU ####S PATHOLOGY [id number] [place], Calcium [Mass/Vol] 9.0 mg/dL Normal 8.6-10.3 [facility] Comment on above: Performed By: #### AUGUSTO GUNDERSON, MG ####S PATHOLOGY [id number] [place], Chloride [Moles/Vol] 99 mmol/L Normal 98-107 [facility] Comment on above: Performed By: #### Kelly Simon MG, CERU ####S PATHOLOGY [id number] [place], Chloride [Moles/Vol] 96 mmol/L Low 98-107 [facility] Comment on above: Performed By: #### AUGUSTO GUNDERSON, MG ####S PATHOLOGY [id number] [place], CO2 [Moles/Vol] 17 mmol/L Low 21-31 [facility] Comment on above: Performed By: #### Kelly Simon MG, CERU ####S PATHOLOGY [id number] [place], CO2 [Moles/Vol] 21 mmol/L Normal 21-31 [facility] Comment on above: Performed By: #### H EPATIC, CH8, MG ####[facility] PATH[facility] XUPJEIVVGW9434 [place], Creatinine [Mass/Vol] 2.73 mg/dL High 0.70-1.30 [facility] Comment on above: Performed By: #### C H8, MG, CERU ####[facility] PATH[facility] [id number] [place], Creatinine [Mass/Vol] 2.60 mg/dL High 0.70-1.30 [facility] Comment on above: Performed By: #### H EPATIC, CH8, MG ####[facility] PATH[facility] [id number] [place], ESTIMATED GFR (CKD-EPI) 28 mL/min/1.73sqm Low >=60 [facility] Comment on above: Result Comment: 2020 CKD EPI Equation using Creatinine without RaceComment: Estimated glomerular filtration rate (eGFR) is calculated without a race coefficient. Values should be interpreted in the context of the patient's full clinical presentation.Reference:1. Melonie Salcedo Crews [place], et al.. A Unifying Approach for GFR Estimation: Recommendations of the NKF-ASN Task Force on Reassessing the Inclusion of Race in Diagnosing Kidney Disease. [place] Journal of Kidney Diseases 2021;79(2):268-88.e1.2. N Engl J Med 2020 Vol. 385 Issue 19 Pages 7550-3663 Performed By: #### C H8, MG, CERU ####[facility] PATH[facility] [id number] [place], ESTIMATED GFR (CKD-EPI) 30 mL/min/1.73sqm Low >=60 [facility] Comment on above: Result Comment: 2020 CKD EPI Equation using Creatinine without RaceComment: Estimated glomerular filtration rate (eGFR) is calculated without a race coefficient. Values should be interpreted in the context of the patient's full clinical presentation.Reference:1. Melonie Salcedo [place], et al.. A Unifying Approach for GFR Estimation: Recommendations of the NKF-ASN Task Force on Reassessing the Inclusion of Race in Diagnosing Kidney Disease. [place] Journal of Kidney Diseases 2021;79(2):268-88.e1.2. N Engl J Med 2020 Vol. 385 Issue 19 Pages 6350-3449 Performed By: #### H AUGUSTO DOSHI, MG ####[facility] PATH[facility] [id number] [place], Glucose [Mass/Vol] 150 mg/dL High 74-109 [facility] Comment on above: Performed By: #### Kelly Simon, MG, CERU ####[facility] PATH[facility] SYEQNVECXL7751 [place], Glucose [Mass/Vol] 129 mg/dL High 74-109 [facility] Comment on above: Performed By: #### H FERNANDO DOSHI8, MG ####[facility] PATH[facility] [id number] [place], Potassium [Moles/Vol] 4.6 mmol/L Normal 3.5-5.0 [facility] Comment on above: Performed By: #### Kelly Simon, MG, CERU ####[facility] PATH[facility] [id number] [place], Potassium [Moles/Vol] 4.3 mmol/L Normal 3.5-5.0 [facility] Comment on above: Performed By: #### Bonilla DOSHI CH8, MG ####[facility] PATH[facility] CUOKKBQVLN4271 [place], Sodium [Moles/Vol] 134 mmol/L Low 136-145 [facility] Comment on above: Performed By: #### Kelly Simon, MG, CERU ####[facility] PATH[facility] FGKALHLAJY7752 [place], Performed By: #### Bonilla ODSHI CH8, MG ####[facility] PATH[facility] [id number] [place], Urea nitrogen [Mass/Vol] 51 mg/dL High 7-25 [facility] Comment on above: Performed By: #### Kelly Simon, MG, CERU ####[facility] PATH[facility] SEEAAVGFUF8501 [place], Urea nitrogen [Mass/Vol] 52 mg/dL High 7-25 [facility] Comment on above: Performed By: #### H EPATIC, CH8, MG ####[facility] PATHOLOGY [id number] [place], BLOOD CULTUREon 09-04-2024 Bacteria identified Cx Nom (Bld) C BLOOD: No Growth Normal [facility] Comment on above: Performed By: #### C BLOOD ####[facility] Uzetifgws6730 [place], [place] CBC WITH DIFFERENTIALon Basophils (Bld) [#/Vol] 0.05 10*3/uL Normal 0.00-0.20 [facility] Comment on above: Performed By: #### C BCDSAT ####[facility] PATHOLOGY [id number] [place], Basophils/100 WBC (Bld) 0.7 % Normal <=1.9 [facility] Comment on above: Performed By: #### C BCDSAT ####[facility] PATHOLOGY [id number] [place], Eosinophils (Bld) [#/Vol] 0.03 10*3/uL Normal 0.00-0.70 [facility] Comment on above: Performed By: #### C BCDSAT ####[facility] PATHOLOGY [id number] [place], Eosinophils/100 WBC (Bld) 0.4 % Normal 0.1-4.0 [facility] Comment on above: Performed By: #### C BCDSAT ####[facility] PATHOLOGY [id number] [place], Erythrocyte distribution width (RBC) [Ratio] 14.2 % Normal 11.5-14.5 [facility] Comment on above: Performed By: #### C BCDSAT ####[facility] PATHOLOGY [id number] [place], Hematocrit (Bld) [Volume fraction] 44.1 % Normal 41.0-53.0 [facility] Comment on above: Performed By: #### C BCDSAT ####[facility] PATHOLOGY [id number] [place], Hemoglobin (Bld) [Mass/Vol] 14.7 g/dL Normal 13.9-16.3 [facility] Comment on above: Performed By: #### C BCDSAT ####[facility] PATHOLOGY [id number] [place], Lymphocytes (Bld) [#/Vol] 2.23 10*3/uL Normal 1.00-4.80 [facility] Comment on above: Performed By: #### C GARRETTDSAT ####[facility] PATHOLOGY [id number] [place] [address], Lymphocytes/100 WBC (Bld) 31.0 % Normal 24.0-44.0 [facility] Comment on above: Performed By: #### Kelly HERNANDEZAT ####[facility] PATHOLOGY [id number] [place] [address], MCH (RBC) [Entitic mass] 34.5 pg High 26.0-34.0 [facility] Comment on above: Performed By: #### Kelly HERNANDEZAT ####[facility] PATHOLOGY [id number] [place] [address], MCHC (RBC) [Mass/Vol] 33.4 g/dL Normal 32.0-35.9 [facility] Comment on above: Performed By: #### Kelly BCDSAT ####[facility] PATHOLOGY [id number] [place] [address], MCV (RBC) [Entitic vol] 103 fL High 80-100 [facility] Comment on above: Performed By: #### C BCSHEYLAAT ####[facility] PATHOLOGY [id number] [place] [address], Monocytes (Bld) [#/Vol] 0.67 10*3/uL Normal 0.20-1.00 [facility] Comment on above: Performed By: #### C BCSHEYLAAT ####[facility] PATHOLOGY [id number] [place] [address], Monocytes/100 WBC (Bld) 9.2 % Normal 2.0-11.0 [facility] Comment on above: Performed By: #### Kelly HERNANDEZAT ####[facility] PATHOLOGY [id number] [place], Neutrophils (Bld) [#/Vol] 4.24 10*3/uL Normal 1.50-8.00 [facility] Comment on above: Performed By: #### Kelly HERNANDEZAT ####[facility] PATHOLOGY [id number] [place], Neutrophils/100 WBC (Bld) 58.7 % Normal 31.0-76.0 [facility] Comment on above: Performed By: #### Kelly HERNANDEZAT ####[facility] PATHOLOGY [id number] [place], Platelet mean volume (Bld) [Entitic vol] 8.3 fL Normal 7.5-11.2 [facility] Comment on above: Performed By: #### Kelly HERNANDEZAT ####[facility] PATHOLOGY [id number] [place], Platelets (Bld) [#/Vol] 226 10*3/uL Normal 150-400 [facility] Comment on above: Performed By: #### Kelly HERNANDEZAT ####[facility] PATHOLOGY [id number] [place], RBC (Bld) [#/Vol] 4.27 10*6/uL Low 4.50-5.90 [facility] Comment on above: Performed By: #### Kelly HERNANDEZAT ####[facility] PATHOLOGY [id number] [place], WBC (Bld) [#/Vol] 7.2 10*3/uL Normal 4.5-11.5 [facility] Comment on above: Performed By: #### Kelly BCSHEYLAAT ####[facility] PATHOLOGY [id number] [place], CERULOPLASMINon 09-04-2024 CERU 48 mg/dL Normal 20-60 [facility] Comment on above: Performed By: #### C H8, MG, CERU ####[facility] [facility]ARE [facility] PATHOLOGY [id number] [place], [place], Care Plan Noteon 09-04-2024 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 Interface Message Text Normal [facility] 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 Interface Message Text Normal [facility] Consultson 09-04-2024 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 Interface Message Text Normal [facility] FENA, BLOODon 09-04-2024 Creatinine [Mass/Vol] 2.71 mg/dL High 0.70-1.30 [facility] Comment on above: Performed By: #### F ENAB, FEUREAB ####[facility] PATHOLOGY [id number] [place], [place], Sodium [Moles/Vol] 132 mmol/L Low 136-145 [facility] Comment on above: Performed By: #### F ENAB, FEUREAB ####[facility] PATHOLOGY [id number] [place], [place], FEUREA, BLOODon 09-04-2024 Urea nitrogen [Mass/Vol] 53 mg/dL High 7-25 [facility] Comment on above: Performed By: #### F ENAB, FEUREAB ####[facility] PATHOLOGY [id number] [place], FRACTIONAL EXCRETION OF SODI UMon 09-04-2024 Creatinine [Mass/Vol] 2.60 mg/dL High 0.70-1.30 [facility] Comment on above: Order Comment: A res ult of <1% often indicates prerenal cause in the setting of SCHUYLER. >2% usually indicates SCHUYLER from tubular causes. Concurrent use of diuretic therapy may limit the utility of the FENa calculation in patients with prerenal disease. Performed By: #### F EUREAU FENAU\ ####S PATHOLOGY [id number] [place], [place], Order Comment: A res ult of <35% is consistent with prerenal cause of SCHUYLER. >50% is consistent with tubular causes. Use of FEUrea may be more accurate than FENa in detecting prerenal disease in patients concurrently taking diuretics. CREATININE, URINE 143 mg/dL Normal [facility] Comment on above: Order Comment: A res ult of <1% often indicates prerenal cause in the setting of SCHUYLER. >2% usually indicates SCHUYLER from tubular causes. Concurrent use of diuretic therapy may limit the utility of the FENa calculation in patients with prerenal disease. Performed By: #### F FATUMA ODELL\ ####S PATHOLOGY [id number] [place], [place], Order Comment: A res ult of <35% is consistent with prerenal cause of SCHUYLER. >50% is consistent with tubular causes. Use of FEUrea may be more accurate than FENa in detecting prerenal disease in patients concurrently taking diuretics. FRACTIONAL EXCRETION OF SODIUM 0.3 % Normal [facility] Comment on above: Order Comment: A res ult of <1% often indicates prerenal cause in the setting of SCHUYLER. >2% usually indicates SCHUYLER from tubular causes. Concurrent use of diuretic therapy may limit the utility of the FENa calculation in patients with prerenal disease. Performed By: #### F FATUMA ODELL\ ####S PATHOLOGY [id number] [place], [place], NA(FENA,BLOOD) 134 mmol/L Low 136-145 [facility] Comment on above: Order Comment: A res ult of <1% often indicates prerenal cause in the setting of SCHUYLER. >2% usually indicates SCHUYLER from tubular causes. Concurrent use of diuretic therapy may limit the utility of the FENa calculation in patients with prerenal disease. Performed By: #### F FATUMA ODELL\ ####S PATHOLOGY [id number] [place], Sodium [Moles/Vol] 19 mmol/L Normal [facility] Comment on above: Order Comment: A res ult of <1% often indicates prerenal cause in the setting of SCHUYLER. >2% usually indicates SCHUYLER from tubular causes. Concurrent use of diuretic therapy may limit the utility of the FENa calculation in patients with prerenal disease. Performed By: #### F FATUMA ODELL\ ####S PATHOLOGY [id number] [place], FRACTIONAL EXCRETION OF UREA on 09-04-2024 FRACTIONAL EXCRETION OF UREA 23 % Normal [facility] Comment on above: Order Comment: A res ult of <35% is consistent with prerenal cause of SCHUYLER. >50% is consistent with tubular causes. Use of FEUrea may be more accurate than FENa in detecting prerenal disease in patients concurrently taking diuretics. Performed By: #### FATUMA HELM\ ####S PATHOLOGY [id number] [place], UREA NITROGEN, URINE 666 mg/dL Normal [facility] Comment on above: Order Comment: A res ult of <35% is consistent with prerenal cause of SCHUYLER. >50% is consistent with tubular causes. Use of FEUrea may be more accurate than FENa in detecting prerenal disease in patients concurrently taking diuretics. Performed By: #### F FATUMA ODELL\ ####S PATHOLOGY [id number] [place], UREA(BLOOD) 52 mg/dL High 8-22 [facility] Comment on above: Order Comment: A res ult of <35% is consistent with prerenal cause of SCHUYLER. >50% is consistent with tubular causes. Use of FEUrea may be more accurate than FENa in detecting prerenal disease in patients concurrently taking diuretics. Performed By: #### FATUMA HELM\ ####S PATHOLOGY [id number] [place], HEPATIC FUNCTION PANELon Albumin [Mass/Vol] 3.8 g/dL Normal 3.5-5.7 [facility] Comment on above: Performed By: #### Keyon Bird, HEPATIC ####S PATHOLOGY [id number] [place], Albumin [Mass/Vol] 4.0 g/dL Normal 3.5-5.7 [facility] Comment on above: Performed By: #### H TICO, CH8, MG ####[facility] [id number] [place], [place], ALK 269 IU/L High 34-104 [facility] Comment on above: Performed By: #### Keyon 1A, HEPATIC ####S PATHOLOGY [id number] [place], ALK 304 IU/L High 34-104 [facility] Comment on above: Performed By: #### AUGUSTO GUNDERSON, MG ####S PATHOLOGY [id number] [place], ALT [Catalytic activity/Vol] 57 U/L High 7-52 [facility] Comment on above: Performed By: #### Keyon 1A, HEPATIC ####[facility] [id number] [place], ALT [Catalytic activity/Vol] 62 U/L High 7-52 [facility] Comment on above: Performed By: #### AUGUSTO GUNDERSON, MG ####[facility] [id number] [place], AST [Catalytic activity/Vol] 64 U/L High 13-39 [facility] Comment on above: Result Comment: Hemo lysis present Performed By: #### Keyon Bird, HEPATIC ####S PATHOLOGY [id number] [place], AST [Catalytic activity/Vol] 53 U/L High 13-39 [facility] Comment on above: Performed By: #### AUGUSTO GUNDERSON, MG ####S PATHOLOGY [id number] [place], Bilirubin [Mass/Vol] 3.5 mg/dL High 0.3-1.0 [facility] Comment on above: Performed By: #### Keyon 1A, HEPATIC ####S PATHOLOGY [id number] [place], Bilirubin [Mass/Vol] 3.9 mg/dL High 0.3-1.0 [facility] Comment on above: Performed By: #### AUGUSTO GUNDERSON, MG ####[facility] [id number] [place], Bilirubin.direct [Mass/Vol] 1.03 mg/dL High 0.03-0.18 [facility] Comment on above: Performed By: #### Keyon 1A, HEPATIC ####S PATHOLOGY [id number] [place], Bilirubin.direct [Mass/Vol] 1.61 mg/dL High 0.03-0.18 [facility] Comment on above: Performed By: #### H AUGUSTO DOSHI, MG ####[facility] PATHOLOGY [id number] [place], Protein [Mass/Vol] 6.6 g/dL Normal 6.0-8.3 [facility] Comment on above: Performed By: #### A 1A, HEPATIC ####S PATHOLOGY [id number] [place], Protein [Mass/Vol] 7.1 g/dL Normal 6.0-8.3 [facility] Comment on above: Performed By: #### H AUGUSTO DOSHI, MG ####[facility] PATHOLOGY [id number] [place], HIGH SENSITIVITY TROPONIN Io n 09-04-2024 HS TROPONIN I 38 ng/L High <=15 [facility] Comment on above: Order Comment: [place] monalisa troponin can result from acute myocardial [...] provider judgement. Performed By: #### H STRP ####[facility] PATHOLOGY [id number] [place], [place], LACTIC ACIDon 09-04-2024 CR LACT 2.6 mmol/L High 0.5-1.6 [facility] Comment on above: Order Comment: This test was developed, and its performance characteristics determined by the Department of Pathology of [facility]. It has not been cleared or approved by the FDA. This test is used for clinical purposes only. Performed By: #### L ACT ####[facility] PATHOLOGY [id number] [place] [address], MAGNESIUMon 09-04-2024 Magnesium [Mass/Vol] 1.9 mg/dL Normal 1.9-2.7 [facility] Comment on above: Performed By: #### C H8, MG, CERU ####[facility] PATHOLOGY [id number] [place] [address], Performed By: #### H EPATIC, CH8, MG ####[facility] PATHOLOG[facility] [id number] [place], POTASSIUM, RANDOM URINEon POTASSIUM, URINE 52 mmol/L Normal 10-160 [facility] Comment on above: Performed By: #### K RU, NA RU ####[facility] PATHOLOGY [id number] [place] [address], PROTHROMBIN TIME AND INRon 0 09-04-2024 INR Coag (PPP) [Relative time] 1.39 {INR} High 0.90-1.10 [facility] Comment on above: Performed By: #### P T ####[facility] PATHOLOGY [id number] [place] [address], PT Coag (PPP) [Time] 15.6 s High 9.7-12.9 [facility] Comment on above: Performed By: #### P T ####[facility] PATHOLOGY [id number] [place] [address], Progress Noteson 09-04-2024 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 Interface Message Text Pt refused 2100 lab draw Nalini Harp MD notified. Normal [facility] 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 Interface Message Text Normal [facility] SMOOTH MUSC ATB SCRN AND TIT [employer] 09-04-2024 ANTI-SMA SCREEN Negative Normal Negative [facility] Comment on above: Order Comment: Negat dai SMA test does not exclude the possibility of chronic liver disease. .I certify that I personally conducted the diagnostic evaluation of the above specimen(s) and have rendered the final diagnosis(es). Performed By: #### S M MU S/T, AMA S/T ####[facility] PATHOLOGY E[address] [place] [address], SODIUM, RANDOM URINEon 09-04 Sodium (U) [Moles/Vol] 20 mmol/L Normal [facility] Comment on above: Performed By: #### K RU, NA RU ####[facility] PATHOLOGY [id number] [place] [address], URINALYSIS WITH REFLEX CULTU RE PERFORMABLEon 09-04-2024 Glucose Ql (U) Negative Normal Negative [facility] Comment on above: Order Comment: A [...] around 50%) Performed By: #### u rinalysiswcul ####[facility] PATHOLOGY [id number] [place], [place], U APPEAR Clear Normal Clear [facility] Comment on above: Order Comment: [...] around 50%) Performed By: #### u rinalysiswcul ####[facility] PATHOLOG[facility] [id number] [place] [address], U BILI Negative Normal Negative [facility] Comment on above: Order Comment: A [...] around 50%) Performed By: #### u rinalysiswcul ####[facility] PATHOLOG[facility] [id number] [place], U BLOOD Negative Normal Negative [facility] Comment on above: Order Comment: A [...] around 50%) Performed By: #### u rinalysiswcul ####[facility] PATHOLOGY [id number] [place] [address], U COLOR Light Yellow Normal Colorless [facility] Comment on above: Order Comment: A [...] Performed By: #### u rinalysiswcul ####S PATHOLOGY [id number] [place], [place] KETONE Negative Normal Negative [facility] [employer] [facility] Comment on above: Order Comment: A [...] Performed By: #### u rinalysiswcul ####S PATHOLOGY [id number] [place], [place] LEUK Negative Normal Negative [facility] [facility] Comment on above: Order Comment: A [...] Performed By: #### u rinalysiswcul ####S PATHOLOGY [id number] [place], [place] NITRITE Negative Normal Negative [facility] Comment on above: Order Comment: A [...] Performed By: #### u rinalysiswcul ####S PATHOLOGY [id number] [place], [place] PH 5.5 Normal 5.0-8.0 [facility] Comment on above: Order Comment: A [...] Performed By: #### u rinalysiswcul ####S PATHOLOGY [id number] [place], [place] PROTEIN Negative Normal Negative [facility] [employer] [facility] Comment on above: Order Comment: A [...] Performed By: #### u rinalysiswcul ####S PATHOLOGY [id number] [place], U SG 1.008 Normal <=1.030 [facility] Comment on above: Order Comment: A [...] Performed By: #### u rinalysiswcul ####S PATHOLOGY [id number] [place], [place] UROBILI Negative Normal Negative [facility] Comment on above: Order Comment: A [...] Performed By: #### u rinalysiswcul ####S PATHOLOGY [id number] [place], XR CHEST AP OR PA 1 VIEWon 0 09-04-2024 XR CHEST AP OR PA 1 VIEW Normal [facility] Progress Noteson 09-03-2024 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 Interface Message Text Normal [facility] 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 Interface Message Text Normal [facility] 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 Interface Message Text Normal [facility] BASIC METABOLIC PANELon Anion gap [Moles/Vol] 19 mmol/L Normal 10-20 [facility] Comment on above: Performed By: #### C H8, HEPATIC, MG ####S PATHOLOGY [id number] [place], Calcium [Mass/Vol] 8.8 mg/dL Normal 8.6-10.3 [facility] Comment on above: Performed By: #### C H8, HEPATIC, MG ####[facility] PUTNIEWFHS3985 [place], Chloride [Moles/Vol] 100 mmol/L Normal 98-107 [facility] Comment on above: Performed By: #### C H8, HEPATIC, MG ####[facility] [id number] [place], CO2 [Moles/Vol] 22 mmol/L Normal 21-31 [facility] Comment on above: Performed By: #### C H8, HEPATIC, MG ####[facility] [id number] [place], Creatinine [Mass/Vol] 2.25 mg/dL High 0.70-1.30 [facility] Comment on above: Performed By: #### C H8, HEPATIC, MG ####[facility] ZPLNPJHEGJ3003 [place], ESTIMATED GFR (CKD-EPI) 36 mL/min/1.73sqm Low >=60 [facility] Comment on above: Result Comment: 2020 [...] Inclusion of Race in Diagnosing Kidney Disease. [place] Journal of Kidney Diseases 2021;79(2):268-88.e1.2. N Engl J Med 2020 Vol. 385 Issue 19 Pages 8613-3753 Performed By: #### C H8, HEPATIC, MG ####[facility] [id number] [place], Glucose [Mass/Vol] 100 mg/dL Normal 74-109 [facility] Comment on above: Performed By: #### C H8, HEPATIC, MG ####[facility] ROORJXZEOS8098 [place], Potassium [Moles/Vol] 4.5 mmol/L Normal 3.5-5.0 [facility] Comment on above: Performed By: #### Kelly Simon, HEPATIC, MG ####[facility] PATHOLOGY [id number] [place], Sodium [Moles/Vol] 136 mmol/L Normal 136-145 [facility] Comment on above: Performed By: #### Kelly Simon, HEPATIC, MG ####[facility] PATHOLOGY [id number] [place], Urea nitrogen [Mass/Vol] 43 mg/dL High 7-25 [facility] Comment on above: Performed By: #### Kelly Simon, HEPATIC, MG ####[facility] PATHOLOGY [id number] [place], CBC WITH DIFFERENTIALon 03-0 -2024 Basophils (Bld) [#/Vol] 0.05 10*3/uL Normal 0.00-0.20 [facility] Comment on above: Performed By: #### Kelly BCDSAT ####[facility] PATHOLOG[facility] [id number] [place], Basophils/100 WBC (Bld) 0.6 % Normal <=1.9 [facility] Comment on above: Performed By: #### Kelly BCDSAT ####[facility] PATHOLOG[facility] [id number] [place], Eosinophils (Bld) [#/Vol] 0.04 10*3/uL Normal 0.00-0.70 [facility] Comment on above: Performed By: #### Kelly BCDSAT ####[facility] PATHOLOGY [id number] [place], Eosinophils/100 WBC (Bld) 0.6 % Normal 0.1-4.0 [facility] Comment on above: Performed By: #### Kelly BCDSAT ####S PATHOLOGY [id number] [place], Erythrocyte distribution width (RBC) [Ratio] 13.5 % Normal 11.5-14.5 [facility] Comment on above: Performed By: #### Kelly BCDSAT ####[facility] PATHOLOG[facility] [id number] [place], Hematocrit (Bld) [Volume fraction] 43.7 % Normal 41.0-53.0 [facility] Comment on above: Performed By: #### C BCDSAT ####[facility] PATHOLOGY [id number] [place], Hemoglobin (Bld) [Mass/Vol] 14.7 g/dL Normal 13.9-16.3 [facility] Comment on above: Performed By: #### C BCDSAT ####[facility] PATHOLOGY [id number] [place], Lymphocytes (Bld) [#/Vol] 2.52 10*3/uL Normal 1.00-4.80 [facility] Comment on above: Performed By: #### C BCDSAT ####[facility] PATHOLOG[facility] [id number] [place], Lymphocytes/100 WBC (Bld) 32.6 % Normal 24.0-44.0 [facility] Comment on above: Performed By: #### C BCDSAT ####[facility] PATHOLOG[facility] [id number] [place], MCH (RBC) [Entitic mass] 34.4 pg High 26.0-34.0 [facility] Comment on above: Performed By: #### C BCDSAT ####[facility] PATHOLOG[facility] [id number] [place], MCHC (RBC) [Mass/Vol] 33.8 g/dL Normal 32.0-35.9 [facility] Comment on above: Performed By: #### C BCDSAT ####[facility] PATHOLOG[facility] [id number] [place], MCV (RBC) [Entitic vol] 102 fL High 80-100 [facility] Comment on above: Performed By: #### C BCDSAT ####[facility] PATHOLOGY [id number] [place] [address], Monocytes (Bld) [#/Vol] 0.77 10*3/uL Normal 0.20-1.00 [facility] Comment on above: Performed By: #### C BCDSAT ####[facility] PATHOLOG[facility] [id number] [place], Monocytes/100 WBC (Bld) 9.9 % Normal 2.0-11.0 [facility] Comment on above: Performed By: #### C BCDSAT ####[facility] PATHOLOG[facility] [id number] [place], Neutrophils (Bld) [#/Vol] 4.35 10*3/uL Normal 1.50-8.00 [facility] Comment on above: Performed By: #### C BCDSAT ####[facility] PATHOLOG[facility] [id number] [place], Neutrophils/100 WBC (Bld) 56.3 % Normal 31.0-76.0 [facility] Comment on above: Performed By: #### C BCDSAT ####[facility] PATHOLOG[facility] [id number] [place], Platelet mean volume (Bld) [Entitic vol] 8.6 fL Normal 7.5-11.2 [facility] Comment on above: Performed By: #### C BCDSAT ####[facility] PATHOLOG[facility] [id number] [place], Platelets (Bld) [#/Vol] 222 10*3/uL Normal 150-400 [facility] Comment on above: Performed By: #### C BCDSAT ####[facility] PATHOLOG[facility] [id number] [place], RBC (Bld) [#/Vol] 4.29 10*6/uL Low 4.50-5.90 [facility] Comment on above: Performed By: #### C BCDSAT ####[facility] PATHOLOG[facility] [id number] [place], WBC (Bld) [#/Vol] 7.7 10*3/uL Normal 4.5-11.5 [facility] Comment on above: Performed By: #### C BCDSAT ####S PATHOLOGY [id number] [place], Consultson 09-02-2024 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 Interface Message Text Normal [facility] 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 Interface Message Text Normal [facility] 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 Interface Message Text Normal [facility] HEPATIC FUNCTION PANELon Albumin [Mass/Vol] 3.6 g/dL Normal 3.5-5.7 [facility] Comment on above: Performed By: #### C HGissel, HEPATIC, MG ####[facility] [id number] [place], ALK 160 IU/L High 34-104 [facility] Comment on above: Performed By: #### C HGissel, HEPATIC, MG ####[facility] WALESWVNET1532 [place], ALT [Catalytic activity/Vol] 44 U/L Normal 7-52 [facility] Comment on above: Performed By: #### Kelly Simon, HEPATIC, MG ####[facility] [id number] [place], AST [Catalytic activity/Vol] 26 U/L Normal 13-39 [facility] Comment on above: Performed By: #### Kelly HGissel, HEPATIC, MG ####[facility] [id number] [place], Bilirubin [Mass/Vol] 3.4 mg/dL High 0.3-1.0 [facility] Comment on above: Performed By: #### Kelly HGissel, HEPATIC, MG ####[facility] HWOZYXLOPU7370 [place], Bilirubin.direct [Mass/Vol] 1.18 mg/dL High 0.03-0.18 [facility] Comment on above: Performed By: #### C H8, HEPATIC, MG ####[facility] [id number] [place], Protein [Mass/Vol] 6.3 g/dL Normal 6.0-8.3 [facility] Comment on above: Performed By: #### Kelly H8, HEPATIC, MG ####[facility] YANGAKNKKP7619 [place], MAGNESIUMon 09-02-2024 Magnesium [Mass/Vol] 2.1 mg/dL Normal 1.9-2.7 [facility] Comment on above: Performed By: #### Kelly Simon, HEPATIC, MG ####[facility] [id number] [place], PROTHROMBIN TIME AND INRon 0 09-02-2024 INR Coag (PPP) [Relative time] 1.54 {INR} High 0.90-1.10 [facility] Comment on above: Performed By: #### P T ####[facility] [id number] [place], PT Coag (PPP) [Time] 17.2 s High 9.7-12.9 [facility] Comment on above: Performed By: #### P T ####[facility] [id number] [place], Progress Noteson 09-02-2024 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 Interface Message Text Normal [facility] 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 Interface Message Text Normal [facility] 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 Interface Message Text Normal [facility] US ASCITES SURVEY 4 QUADRANT Son 09-02-2024 US ASCITES SURVEY 4 QUADRANTS Normal [facility] BASIC METABOLIC PANELon Anion gap [Moles/Vol] 19 mmol/L Normal 10-20 [facility] Comment on above: Performed By: #### Kelly H8, MG ####[facility] [id number] [place], [place], Calcium [Mass/Vol] 8.2 mg/dL Low 8.6-10.3 [facility] Comment on above: Performed By: #### Kelly H8, MG ####[facility] [id number] [place], [place], Chloride [Moles/Vol] 103 mmol/L Normal 98-107 [facility] Comment on above: Performed By: #### Kelly H8, MG ####[facility] [id number] [place], [place], CO2 [Moles/Vol] 19 mmol/L Low 21-31 [facility] Comment on above: Performed By: #### C H8, MG ####[facility] [id number] [place], [place], Creatinine [Mass/Vol] 2.04 mg/dL High 0.70-1.30 [facility] Comment on above: Performed By: #### C H8, MG ####[facility] [id number] [place], ESTIMATED GFR (CKD-EPI) 40 mL/min/1.73sqm Low >=60 [facility] Comment on above: Result Comment: 2020 [...] Inclusion of Race in Diagnosing Kidney Disease. [place] Journal of Kidney Diseases 2021;79(2):268-88.e1.2. N Engl J Med 2020 Vol. 385 Issue 19 Pages 6513-0637 Performed By: #### C H8, MG ####[facility] [id number] [place], [place], Glucose [Mass/Vol] 134 mg/dL High 74-109 [facility] Comment on above: Performed By: #### C H8, MG ####[facility] [id number] [place], Potassium [Moles/Vol] 4.6 mmol/L Normal 3.5-5.0 [facility] Comment on above: Result Comment: Hemo lysis present Performed By: #### C H8, MG ####[facility] [id number] [place], Sodium [Moles/Vol] 136 mmol/L Normal 136-145 [facility] Comment on above: Performed By: #### C H8, MG ####[facility] [id number] [place], Urea nitrogen [Mass/Vol] 34 mg/dL High 7-25 [facility] Comment on above: Performed By: #### C H8, MG ####[facility] PATHOLOGY [id number] [place] [address], CBC WITH DIFFERENTIALon 03-0 5-2024 Basophils (Bld) [#/Vol] 0.03 10*3/uL Normal 0.00-0.20 [facility] Comment on above: Performed By: #### C BCDSAT ####[facility] PATHOLOGY [id number] [place] [address], Basophils/100 WBC (Bld) 0.5 % Normal <=1.9 [facility] Comment on above: Performed By: #### C BCDSAT ####[facility] PATHOLOGY [id number] [place] [address], Eosinophils (Bld) [#/Vol] 0.03 10*3/uL Normal 0.00-0.70 [facility] Comment on above: Performed By: #### C BCDSAT ####[facility] PATHOLOGY [id number] [place] [address], Eosinophils/100 WBC (Bld) 0.5 % Normal 0.1-4.0 [facility] Comment on above: Performed By: #### Kelly BCDSAT ####[facility] PATHOLOGY [id number] [place] [address], Erythrocyte distribution width (RBC) [Ratio] 14.0 % Normal 11.5-14.5 [facility] Comment on above: Performed By: #### C BCDSAT ####[facility] PATHOLOGY [id number] [place] [address], Hematocrit (Bld) [Volume fraction] 46.1 % Normal 41.0-53.0 [facility] Comment on above: Performed By: #### C BCDSAT ####[facility] PATHOLOGY [id number] [place] [address], Hemoglobin (Bld) [Mass/Vol] 15.2 g/dL Normal 13.9-16.3 [facility] Comment on above: Performed By: #### Kelly BCDSAT ####[facility] PATHOLOGY [id number] [place] [address], Lymphocytes (Bld) [#/Vol] 1.72 10*3/uL Normal 1.00-4.80 [facility] Comment on above: Performed By: #### C BCDSAT ####[facility] PATHOLOGY [id number] [place], Lymphocytes/100 WBC (Bld) 28.0 % Normal 24.0-44.0 [facility] Comment on above: Performed By: #### C BCDSAT ####[facility] PATHOLOGY [id number] [place] [address], MCH (RBC) [Entitic mass] 34.1 pg High 26.0-34.0 [facility] Comment on above: Performed By: #### C BCDSAT ####[facility] PATHOLOGY [id number] [place] [address], MCHC (RBC) [Mass/Vol] 33.0 g/dL Normal 32.0-35.9 [facility] Comment on above: Performed By: #### C BCDSAT ####[facility] PATHOLOGY [id number] [place] [address], MCV (RBC) [Entitic vol] 103 fL High 80-100 [facility] Comment on above: Performed By: #### C BCDSAT ####[facility] PATHOLOGY [id number] [place], Monocytes (Bld) [#/Vol] 0.56 10*3/uL Normal 0.20-1.00 [facility] Comment on above: Performed By: #### C BCDSAT ####[facility] PATHOLOGY [id number] [place], Monocytes/100 WBC (Bld) 9.1 % Normal 2.0-11.0 [facility] Comment on above: Performed By: #### C BCDSAT ####[facility] PATHOLOGY [id number] [place] [address], Neutrophils (Bld) [#/Vol] 3.80 10*3/uL Normal 1.50-8.[address] [facility] Comment on above: Performed By: #### C BCDSAT ####S PATHOLOGY [id number] [place], Neutrophils/100 WBC (Bld) 61.9 % Normal 31.0-76.0 [facility] Comment on above: Performed By: #### C BCDSAT ####S PATHOLOGY [id number] [place], Platelet mean volume (Bld) [Entitic vol] 8.2 fL Normal 7.5-11.2 [facility] Comment on above: Performed By: #### C BCDSAT ####S PATHOLOGY [id number] [place], Platelets (Bld) [#/Vol] 198 10*3/uL Normal 150-400 [facility] Comment on above: Performed By: #### C BCDSAT ####S PATHOLOGY [id number] [place], RBC (Bld) [#/Vol] 4.46 10*6/uL Low 4.50-5.90 [facility] Comment on above: Performed By: #### C BCDSAT ####S PATHOLOGY [id number] [place], WBC (Bld) [#/Vol] 6.1 10*3/uL Normal 4.5-11.5 [facility] Comment on above: Performed By: #### C BCDSAT ####[facility] PATHOLOGY [id number] [place], [place], Consultson 09-01-2024 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 Interface Message Text Normal [facility] ED Noteson 09-01-2024 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 Interface Message Text Normal [facility] ED Provider Noteson 09-02-19 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 Interface Message Text Sign out received at 0700. Briefly this is a 44M PMH HF, CKD, HTN presenting for HF, pending admission. VS reviewed, stable. Labs reviewed, notable for CKD, elevated hepatic enzymes, elevated BNP. Pending admission. Signed out to inpatient team. Normal [facility] FEUREA, BLOODon 09-01-2024 Creatinine [Mass/Vol] 2.10 mg/dL High 0.70-1.30 [facility] Comment on above: Performed By: #### F EURRONB ####[facility] PATHOLOGY [id number] [place], Urea nitrogen [Mass/Vol] 36 mg/dL High 7-25 [facility] Comment on above: Performed By: #### F EURRONB ####[facility] PATHOLOGY [id number] [place], FRACTIONAL EXCRETION OF UREA on 09-01-2024 Creatinine [Mass/Vol] 2.04 mg/dL High 0.70-1.30 [facility] Comment on above: Order Comment: A res ult of <35% is consistent with prerenal cause of SCHUYLER. >50% is consistent with tubular causes. Use of FEUrea may be more accurate than FENa in detecting prerenal disease in patients concurrently taking diuretics. Performed By: #### F VOLODYMYRU ####[facility] PATHOLOGY [id number] [place], [place], CREATININE, URINE 16 mg/dL Normal [facility] Comment on above: Order Comment: A res ult of <35% is consistent with prerenal cause of SCHUYLER. >50% is consistent with tubular causes. Use of FEUrea may be more accurate than FENa in detecting prerenal disease in patients concurrently taking diuretics. Performed By: #### F VOLODYMYRU ####[facility] PATHOLOGY [id number] [place], FRACTIONAL EXCRETION OF UREA 27 % Normal [facility] Comment on above: Order Comment: A res ult of <35% is consistent with prerenal cause of SCHUYLER. >50% is consistent with tubular causes. Use of FEUrea may be more accurate than FENa in detecting prerenal disease in patients concurrently taking diuretics. Performed By: #### F EURRONU ####S PATHOLOGY CALATAUEPG5498 [place], UREA NITROGEN, URINE 73 mg/dL Normal [facility] Comment on above: Order Comment: A res ult of <35% is consistent with prerenal cause of SCHUYLER. >50% is consistent with tubular causes. Use of FEUrea may be more accurate than FENa in detecting prerenal disease in patients concurrently taking diuretics. Performed By: #### F EUREAU ####S PATHOLOGY [id number] [place], UREA(BLOOD) 34 mg/dL High 8-22 [facility] Comment on above: Order Comment: A res ult of <35% is consistent with prerenal cause of SCHUYLER. >50% is consistent with tubular causes. Use of FEUrea may be more accurate than FENa in detecting prerenal disease in patients concurrently taking diuretics. Performed By: #### F EUREAU ####S PATHOLOGY [id number] [place], [place], H AND Timo 09-01-2024 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 Interface Message Text Normal [facility] 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 Interface Message Text Normal [facility] HIGH SENSITIVITY CARDIAC TRO PONIN I (HS-CTNI) SERIAL TESTING 0HR (BASELINE)on 09-01-2024 HS-CTNI 0 HR (BASELINE) 16 ng/L High <=15 [facility] Comment on above: Order Comment: [place] monalisa troponin can result from acute myocardial [...] Performed By: #### H STRP SERIAL ####[facility] [id number] [place] [place], [id number] MAGNESIUMon 09-01-2024 Magnesium [Mass/Vol] 2.0 mg/dL Normal 1.9-2.7 [facility] Comment on above: Result Comment: Hemo lysis present Performed By: #### C H8, MG ####[facility] [id number] [place], [address] Progress Noteson 09-01-2024 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 Interface Message Text Pt refused the labs stating am done for the day . notified Normal [facility] 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 Interface Message Text Normal [facility] US LIVER/GALL BLADDER/PANCRE ASon 09-01-2024 US LIVER/GALL BLADDER/PANCREAS Normal [facility] B TYPE NATRIURETIC PEPTIDEon 08-31-2024 Natriuretic peptide B (Bld) [Mass/Vol] 3904.0 pg/mL High <100.0 [facility] Comment on above: Performed By: #### B PL ####[facility] [id number] [place], [id number] BASIC METABOLIC PANELon Anion gap [Moles/Vol] 14 mmol/L Normal 10-20 [facility] Comment on above: Performed By: #### C H8, HEPATIC, LIP ####[facility] [id number] [place] , [id number] Calcium [Mass/Vol] 9.5 mg/dL Normal 8.6-10.3 [facility] Comment on above: Performed By: #### C H8, HEPATIC, LIP ####[facility] [id number] [facility] , [id number] Chloride [Moles/Vol] 100 mmol/L Normal 98-107 [facility] Comment on above: Performed By: #### C H8, HEPATIC, LIP ####[facility] [id number] [place] , [id number] CO2 [Moles/Vol] 29 mmol/L Normal 21-31 [facility] Comment on above: Performed By: #### C H8, HEPATIC, LIP ####[facility] [id number] [place] [address] Creatinine [Mass/Vol] 1.93 mg/dL High 0.70-1.30 [facility] Comment on above: Performed By: #### C H8, HEPATIC, LIP ####[facility] [id number] [place] [address] ESTIMATED GFR (CKD-EPI) 43 mL/min/1.73sqm Low >=60 [...] Inclusion of Race in Diagnosing Kidney Disease. [place] Journal of Kidney Diseases 202;79(2):268-88.e1.2. N Engl J Med 1 Vol. 385 Issue 19 Pages 9659-4160 Performed By: #### C H8, HEPATIC, LIP ####[facility] [id number] [place] , [id number] Glucose [Mass/Vol] 115 mg/dL High 74-109 [facility] Comment on above: Performed By: #### C H8, HEPATIC, LIP ####[facility] [id number] [place], [id number] Potassium [Moles/Vol] 3.6 mmol/L Normal 3.5-5.0 [facility] Comment on above: Performed By: #### Kelly H8, HEPATIC, LIP ####[facility] [id number] [place] , [id number] Sodium [Moles/Vol] 139 mmol/L Normal 136-145 [facility] Comment on above: Performed By: #### Kelly HGissel, HEPATIC, LIP ####[facility] [id number] [place] , [id number] Urea nitrogen [Mass/Vol] 34 mg/dL High 7-25 [facility] Comment on above: Performed By: #### Kelly Simon, HEPATIC, LIP ####[facility] [id number] [place] , [id number] CBC WITH DIFFERENTIALon 0 Basophils (Bld) [#/Vol] 0.00 10*3/uL Normal 0.00-0.20 [facility] Comment on above: Performed By: #### C BCDSAT ####S [facility] [id number] [place], [id number] Basophils/100 WBC (Bld) 0.5 % Normal <=1.9 [facility] Comment on above: Performed By: #### C BCDSAT ####S [facility] [id number] [place] , [id number] Eosinophils (Bld) [#/Vol] 0.00 10*3/uL Normal 0.00-0.70 [facility] Comment on above: Performed By: #### C BCDSAT ####S [facility] [id number] [place], [id number] Eosinophils/100 WBC (Bld) 0.3 % Normal 0.1-4.0 [facility] Comment on above: Performed By: #### C BCDSAT ####[facility] [id number] [place] , [id number] Erythrocyte distribution width (RBC) [Ratio] 13.9 % Normal 11.5-14.5 [facility] Comment on above: Performed By: #### C BCDSAT ####S [facility] [id number] [place] , [id number] Hematocrit (Bld) [Volume fraction] 45.9 % Normal 41.0-53.0 [facility] Comment on above: Performed By: #### C BCDSAT ####S [facility] [id number] [place] , [id number] Hemoglobin (Bld) [Mass/Vol] 14.9 g/dL Normal 13.9-16.3 [facility] Comment on above: Performed By: #### C BCDSAT ####[facility] [id number] [place] , [id number] Lymphocytes (Bld) [#/Vol] 2.20 10*3/uL Normal 1.00-4.80 [facility] Comment on above: Performed By: #### C BCDSAT ####S [facility] [id number] [place] , [id number] Lymphocytes/100 WBC (Bld) 25.7 % Normal 24.0-44.0 [facility] Comment on above: Performed By: #### C BCDSAT ####S [facility] [id number] [place] , [id number] MCH (RBC) [Entitic mass] 33.9 pg Normal 26.0-34.0 [facility] Comment on above: Performed By: #### C BCDSAT ####S [facility] [id number] [place] , [id number] MCHC (RBC) [Mass/Vol] 32.6 g/dL Normal 32.0-35.9 [facility] Comment on above: Performed By: #### C BCDSAT ####[facility] [id number] [place] , [id number] MCV (RBC) [Entitic vol] 104 fL High 80-100 [facility] Comment on above: Performed By: #### C BCDSAT ####S [facility] [id number] [place] , [id number] Monocytes (Bld) [#/Vol] 0.50 10*3/uL Normal 0.20-1.00 [facility] Comment on above: Performed By: #### C BCDSAT ####S [facility] [id number] [place] , [id number] Monocytes/100 WBC (Bld) 5.6 % Normal 2.0-11.0 [facility] Comment on above: Performed By: #### C BCDSAT ####[facility] PATHOLOGY [id number] [place] , [id number] Neutrophils (Bld) [#/Vol] 5.70 10*3/uL Normal 1.50-8.00 [facility] Comment on above: Performed By: #### C BCDSAT ####S [facility] [id number] [place] , [id number] Neutrophils/100 WBC (Bld) 67.9 % Normal 31.0-76.0 [facility] Comment on above: Performed By: #### C BCDSAT ####[facility] PATHOLOGY [id number] [place] , [id number] Nucleated RBC (Bld) [#/Vol] 10*3/uL Normal [facility] Comment on above: Performed By: #### C BCDSAT ####S [facility] [id number] [place] , [id number] Nucleated RBC (Bld) [#/Vol] 0.01 10*3/uL Normal [facility] Comment on above: Performed By: #### C BCDSAT ####[facility] [id number] [place] , [id number] Platelet mean volume (Bld) [Entitic vol] 8.4 fL Normal 7.5-11.2 [facility] Comment on above: Performed By: #### C BCDSAT ####S [facility] [id number] [place], [id number] Platelets (Bld) [#/Vol] 238 10*3/uL Normal 150-400 [facility] Comment on above: Performed By: #### C BCDSAT ####[facility] [id number] [place], [id number] RBC (Bld) [#/Vol] 4.40 10*6/uL Low 4.50-5.90 [facility] Comment on above: Performed By: #### C GARRETTDSAT ####[facility] [id number] [place] , [id number] WBC (Bld) [#/Vol] 8.4 10*3/uL Normal 4.5-11.5 [facility] Comment on above: Performed By: #### Kelly TUCKERDSAT ####[facility] [id number] [place] , [id number] ED Noteson 08-31-2024 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 Interface Message Text Report given to CRISTINE Valdez Normal [facility] ED Provider Noteson 09-01-19 Group Home Supervisor Authentication Interface Message Text Normal [facility] HEPATIC FUNCTION PANELon Albumin [Mass/Vol] 4.2 g/dL Normal 3.5-5.7 [facility] Comment on above: Performed By: #### Kelly H8, HEPATIC, LIP ####[facility] [id number] [place], [id number] ALK 170 IU/L High 34-104 [facility] Comment on above: Performed By: #### Kelly H8, HEPATIC, LIP ####[facility] [id number] [place], [id number] ALT [Catalytic activity/Vol] 53 U/L High 7-52 [facility] Comment on above: Performed By: #### Kelly H8, HEPATIC, LIP ####[facility] [id number] [place] , [id number] AST [Catalytic activity/Vol] 20 U/L Normal 13-39 [facility] Comment on above: Performed By: #### C H8, HEPATIC, LIP ####S [facility] [id number] [place] , [id number] Bilirubin [Mass/Vol] 3.4 mg/dL High 0.3-1.0 [facility] Comment on above: Performed By: #### C H8, HEPATIC, LIP ####S [facility] [id number] [place] , [id number] Bilirubin.direct [Mass/Vol] 1.30 mg/dL High 0.03-0.18 [facility] Comment on above: Performed By: #### C H8, HEPATIC, LIP ####S [facility] [id number] [place] , [id number] Protein [Mass/Vol] 6.8 g/dL Normal 6.0-8.3 [facility] Comment on above: Performed By: #### C H8, HEPATIC, LIP ####[facility] PATHOLOGY [id number] [place], [id number] LIPASEon 08-31-2024 LIP 9 IU/L Low 11-82 [facility] Comment on above: Performed By: #### C H8, HEPATIC, LIP ####S [facility] [id number] [place] , [id number] Patient Instructionson 08-31 Group Home Supervisor Authentication Interface Message Text Normal [facility] Progress Notes - NoteWritero n 08-31-2024 Group Home Supervisor Authentication Interface Message Text Normal [facility] XR CHEST PA+LAT 2 VIEWSon XR CHEST PA+LAT 2 VIEWS Normal [facility] Telephone Encounteron 2024 Group Home Supervisor Authentication Interface Message Text Normal [facility] AUTOIMMUNE MULTIPLEX PANELon 08-27-2024 XOCHITL SCREEN Negative Normal Negative [facility] Comment on above: Order Comment: ds DN A Reference Range:< or = to 4 IU/fH-Xjhbhnla2-7 IU/mL-Indeterminate> or = to 10 IU/mL-Positiveds DNA Reference Range:< or = to 4 IU/bV-Jnhykfgb8-2 IU/mL-Indeterminate> or = to 10 IU/mL-PositiveA negative screen reflects the following tests as negative-dsDNA Antibody, SS-A Antibody, SS-B Antibody, Centromere Antibody, Hogan Antibody, Hogan/PATIENT REGISTRATION SPECIALIST Antibody, PATIENT REGISTRATION SPECIALIST Antibody, Scleroderma-70 Antibody, JUAN JOSE-1 Antibody, Ribosomal P Antibody, Chromatin Antibody. Performed By: #### P HOS, FT3, T4 F, VITD25, xochitl ####[facility] PATHOLOGY [id number] [place], [place], BASIC METABOLIC PANELon 08-01 Anion gap [Moles/Vol] 18 mmol/L Normal 10-20 [facility] Comment on above: Performed By: #### M G, TSH HS, CALEB, SYPTOTALTPPA, 00113-8, VITB12, CH8 ####[facility] PATHOLOGY [id number] [place] [address], Calcium [Mass/Vol] 9.6 mg/dL Normal 8.6-10.3 [facility] Comment on above: Performed By: #### M G, TSH HS, CALEB, SYPTOTALTPPA, 95848-7, VITB12, CH8 ####[facility] PATHOLOGY [id number] [place] [address], Chloride [Moles/Vol] 99 mmol/L Normal 98-107 [facility] Comment on above: Performed By: #### M G, TSH HS, CALEB, SYPTOTALTPPA, 95530-1, VITB12, CH8 ####[facility] PATHOLOGY [id number] [place] [address], CO2 [Moles/Vol] 30 mmol/L Normal 21-31 [facility] Comment on above: Performed By: #### M G, TSH HS, CALEB, SYPTOTALTPPA, 54815-2, VITB12, CH8 ####[facility] PATHOLOGY [id number] [place] [address], Creatinine [Mass/Vol] 2.04 mg/dL High 0.70-1.30 [facility] Comment on above: Performed By: #### M G, TSH HS, CALEB, SYPTOTALTPPA, 52101-0, VITB12, CH8 ####[facility] PATHOLOGY [id number] [place] [address] [place], ESTIMATED GFR (CKD-EPI) 40 mL/min/1.73sqm Low >=60 [facility] Comment on above: Result Comment: 2020 [...] Inclusion of Race in Diagnosing Kidney Disease. [place] Journal of Kidney Diseases 2021;79(2):268-88.e1.2. N Engl J Med 1 Vol. 385 Issue 19 Pages 7501-1898 Performed By: #### M G, TSH HS, CALEB, SYPTOTALTPPA, 82791-7, VITB12, CH8 ####S PATHOLOGY [id number] [place], [place], Glucose [Mass/Vol] 110 mg/dL High 74-109 [facility] Comment on above: Performed By: #### M G, TSH HS, CALEB, SYPTOTALTPPA, 75925-1, VITB12, CH8 ####S PATHOLOGY LIVPIIBFTQ5681 [place], [place], Potassium [Moles/Vol] 4.2 mmol/L Normal 3.5-5.0 [facility] Comment on above: Performed By: #### M G, TSH HS, CALEB, SYPTOTALTPPA, 34335-0, VITB12, CH8 ####[facility] [id number] [place], [place], Sodium [Moles/Vol] 143 mmol/L Normal 136-145 [facility] Comment on above: Performed By: #### M G, TSH HS, CALEB, SYPTOTALTPPA, 43070-0, VITB12, CH8 ####[facility] KGJWHALZMQ4509 [place], [place], Urea nitrogen [Mass/Vol] 51 mg/dL High 7-25 [facility] Comment on above: Performed By: #### M G, TSH HS, CALEB, SYPTOTALTPPA, 11311-4, VITB12, CH8 ####[facility] PATHOLOGY [id number] [place], [place], COMPLETE BLOOD COUNTon 08-27 Erythrocyte distribution width (RBC) [Ratio] 13.2 % Normal 11.5-14.5 [facility] Comment on above: Performed By: #### C BC ####[facility] PATHOLOGY [id number] [place] [address], Hematocrit (Bld) [Volume fraction] 41.2 % Normal 41.0-53.0 [facility] Comment on above: Performed By: #### C BC ####[facility] PATHOLOGY TOWSTMLIQL[address] [place] [address], Hemoglobin (Bld) [Mass/Vol] 13.4 g/dL Low 13.9-16.3 [facility] Comment on above: Performed By: #### C BC ####[facility] PATHOLOGY [id number] [place] [address], MCH (RBC) [Entitic mass] 33.5 pg Normal 26.0-34.0 [facility] Comment on above: Performed By: #### C BC ####[facility] PATHOLOGY [id number] [place] [address], MCHC (RBC) [Mass/Vol] 32.5 g/dL Normal 32.0-35.9 [facility] Comment on above: Performed By: #### C BC ####[facility] PATHOLOGY [id number] [place] [address], MCV (RBC) [Entitic vol] 103 fL High 80-100 [facility] Comment on above: Performed By: #### C BC ####[facility] PATHOLOGY [id number] [place] [address], Platelet mean volume (Bld) [Entitic vol] 8.0 fL Normal 7.5-11.2 [facility] Comment on above: Performed By: #### C BC ####[facility] PATHOLOGY [id number] [place] [address], Platelets (Bld) [#/Vol] 238 10*3/uL Normal 150-400 [facility] Comment on above: Performed By: #### C BC ####[facility] PATHOLOGY [id number] [place], [place], RBC (Bld) [#/Vol] 4.00 10*6/uL Low 4.50-5.90 [facility] Comment on above: Performed By: #### C BC ####[facility] PATHOLOGY [id number] [place], WBC (Bld) [#/Vol] 6.6 10*3/uL Normal 4.5-11.5 [facility] Comment on above: Performed By: #### C BC ####[facility] PATHOLOGY [id number] [place] [address], FERRITINon 08-27-2024 CALEB 119.2 ng/mL Normal 23.9-336.2 [facility] Comment on above: Performed By: #### M G, TSH HS, CALEB, SYPTOTALTPPA, 47769-4, VITB12, CH8 ####[facility] PATHOLOGY [id number] [place], [place], FULL LIPID PROFILEon 025 Cholesterol [Mass/Vol] 204 mg/dL High <200 Th [facility] Comment on above: Result Comment: Michaela rable: < 200 mg/dLBorderline High: 200-239 mg/dLHigh: > = 240 mg/dL Performed By: #### H EPATIC, FETIBC, HDL ####S PATHOLOGY [id number] [place], [place], Cholesterol in LDL [Mass/Vol] 162 mg/dL High <100 [facility] Comment on above: Performed By: #### H EPATIC, FETIBC, HDL ####[facility] UJFNZZVEBR5143 [place], Cholesterol.total/Chol esterol in HDL [Mass ratio] 7.29 {ratio} High <5.00 [facility] Comment on above: Performed By: #### H EPATIC, FETIBC, HDL ####S PATHOLOGY IKDQZFMUEW1379 [place], HDL CHOL 28 mg/dL Low >40 [facility] Comment on above: Performed By: #### H EPATIC, FETIBC, HDL ####S PATHOLOGY GXHAGYMZIK4996 [place], LDL/HDL 5.79 High <3.57 [facility] Comment on above: Performed By: #### H EPAMISAEL, FETIBC, HDL ####[facility] PATHOLOGY [id number] [place], NON-HDL CHOLESTEROL 176 mg/dL High <130 [facility] Comment on above: Performed By: #### H TICO FETIBC, HDL ####[facility] PATHOLOGY [id number] [place], Triglyceride [Mass/Vol] 106 mg/dL Normal <150 [facility] Comment on above: Result Comment: Norm al: < 150 mg/dLBorderline High: 150-199 mg/dLHigh: 200-499 mg/dLVery High: > = 500 mg/dL Performed By: #### H TICO, FETIBC, HDL ####[facility] PATHOLOGY [id number] [place], GC/CHLAMYDIA/TRICHOMONAS AMP LIFICATIONon 08-27-2024 GC/CHLAMYDIA/TRICHOMON AMPLIFICATION CHLAMYDIA AMPLIFICATION: Negative GC AMPLIFICATION: Negative TRICHOMONAS AMPLIFICATION: Negative Normal Negative [facility] Comment on above: Order Comment: This test is performed using an automated nucleic acid amplification assay ([employer] Performed By: #### G CT ####[facility] Ehnycxtpv9399 [place], [place] HEPATIC FUNCTION PANELon Albumin [Mass/Vol] 4.1 g/dL Normal 3.5-5.7 [facility] Comment on above: Performed By: #### H EPAMISAEL, FETIBC, HDL ####S PATHOLOGY NYXQKXHRNQ9756 [place], [place], ALK 174 IU/L High 34-104 [facility] Comment on above: Performed By: #### H TICO FETIBC, HDL ####[facility] PATHOLOGY [id number] [place], ALT [Catalytic activity/Vol] 105 U/L High 7-52 [facility] Comment on above: Performed By: #### H EPATIC, FETIBC, HDL ####[facility] PATHOLOGY [id number] [place], AST [Catalytic activity/Vol] 51 U/L High 13-39 [facility] Comment on above: Performed By: #### H EPATIC, FETIBC, HDL ####[facility] PATHOLOGY [id number] [place], Bilirubin [Mass/Vol] 3.8 mg/dL High 0.3-1.0 [facility] Comment on above: Performed By: #### Bonilla EPAMISAEL, FETIBC, HDL ####[facility] PATHOLOGY [id number] [place] [address], Bilirubin.direct [Mass/Vol] 1.44 mg/dL High 0.03-0.18 [facility] Comment on above: Performed By: #### H EPAMISAEL, FETIBC, HDL ####[facility] PATHOLOGY [id number] [place] [address], Protein [Mass/Vol] 7.1 g/dL Normal 6.0-8.3 [facility] Comment on above: Performed By: #### [place] EPAMISAEL, FETIBC, HDL ####[facility] PATHOLOGY [id number] [place] [address], HEPATITIS A IGM ANTIBODYon 0 08-27-2024 HEP A IGM Non-Reactive Normal Nonreactive [facility] Comment on above: Performed By: #### C ORE, ANTI-HBS, HCV, HEP A TOT, HEP A IGM, HBSAG, CORE M ####[facility] PATHOLOGY [id number] [place] [address], HEPATITIS A TOTAL ANTIBODYon 08-27-2024 HEP A TOT Non-Reactive Normal Nonreactive [facility] Comment on above: Performed By: #### C ORE, ANTI-HBS, HCV, HEP A TOT, HEP A IGM, HBSAG, CORE M ####[facility] PATHOLOGY [id number] [place], HEPATITIS B CORE ANTIBODYon 08-27-2024 CORE Non-Reactive Normal Nonreactive [facility] Comment on above: Performed By: #### C ORE, ANTI-HBS, HCV, HEP A TOT, HEP A IGM, HBSAG, CORE M ####[facility] PATHOLOGY [id number] [place] [address], HEPATITIS B CORE ANTIBODY IG 08-27-2024 CORE M Non-Reactive Normal Nonreactive [facility] Comment on above: Performed By: #### C ORE, ANTI-HBS, HCV, HEP A TOT, HEP A IGM, HBSAG, CORE M ####[facility] PATHOLOGY [id number] [place] [address], HEPATITIS B SURFACE ANTIBODY on 08-27-2024 ANTI-HBS < 3.1 Normal [facility] Comment on above: Order Comment: Nonre active: Samples < 7.5 mIU/mLReactive: Samples >/= 10.0 mIU/mLThe accepted criteria for immunity to HBV is anti-HBs activity >/= 10 mIU/mL, as defined by the WHO International Reference Preparation. Performed By: #### C ORE, ANTI-HBS, HCV, HEP A TOT, HEP A IGM, HBSAG, CORE M ####[facility] PATHOLOGY [id number] [place] [address], HEPATITIS B SURFACE ANTIGENo n 08-27-2024 HBSAG Non-Reactive Normal Non-Reactive [facility] Comment on above: Performed By: #### C ORE, ANTI-HBS, HCV, HEP A TOT, HEP A IGM, HBSAG, CORE M ####[facility] PATHOLOGY [id number] [place] [address], HEPATITIS C ANTIBODYon 08-27 HCV Non-Reactive Normal Nonreactive [facility] Comment on above: Performed By: #### C ORE, ANTI-HBS, HCV, HEP A TOT, HEP A IGM, HBSAG, CORE M ####[facility] PATHOLOGY [id number] [place] [address], HIV 1 and 2 Ab and HIV 1 p24 Ag panel IAon 08-27-2024 HIV AG-AB SCREEN Non-Reactive Normal Non-Reactive [facility] Comment on above: Order Comment: HIV I nformation: ???[place] Rev. code 3701.243(E):This information has been disclosed [...] #### M G, TSH HS, CALEB, SYPTOTALTPPA, 43974-5, VITB12, CH8 ####[facility] PATHOLOGY [id number] [place], [place], IRON AND TIBCon 08-27-2024 % SAT CORRECT PRD 14 % Low 20-55 [facility] Comment on above: Performed By: #### H EPATIC, FETIBC, HDL ####S PATHOLOGY [id number] [place], FE CORRECT PRD 61 ug/dL Normal 50-212 [facility] Comment on above: Performed By: #### H EPATIC, FETIBC, HDL ####S PATHOLOGY JMCCHRCART1137 [place], TIBC CORRECT PRD 430 ug/mL High 250-410 [facility] Comment on above: Performed By: #### H EPATIC, FETIBC, HDL ####S PATHOLOGY GTUWFKVKMZ8281 [place], TRANSFER CORRECT PRD 307 mg/dL Normal 203-362 [facility] Comment on above: Performed By: #### H EPATIC, FETIBC, HDL ####S PATHOLOGY [id number] [place], MAGNESIUMon 08-27-2024 Magnesium [Mass/Vol] 2.4 mg/dL Normal 1.9-2.7 [facility] Comment on above: Performed By: #### M G, TSH HS, CALEB, SYPTOTALTPPA, 74026-6, VITB12, CH8 ####[facility] PATHOLOGY [id number] [place], MICROALBUMIN, URINEon 2024 CREATININE, URINE 426 mg/dL Normal [facility] Comment on above: Order Comment: Note updated reference ranges. Performed By: #### U R RICKEY ####[facility] PATHOLOGY [id number] [place], MICRO-ALBUMIN, URINE 212 mg/L Normal [facility] Comment on above: Order Comment: Note updated reference ranges. Performed By: #### Haritha Aleman MA ####[facility] PATHOLOGY [id number] [place] [address], MICRO-ALBUMIN/CREAT RATIO 50 mg/G High <=30 [facility] Comment on above: Order Comment: Note updated reference ranges. Performed By: #### Haritha Aleman MA ####[facility] PATHOLOGY [id number] [place], [place], NT PRO-BNPon 08-27-2024 Natriuretic peptide B (Bld) [Mass/Vol] 94131 pg/mL High <=450 [facility] Comment on above: Order Comment: Resul t: <300 pg/mL (All ages).Interpretation: Negative. Heart failure unlikely.Result: 300-450 pg/mL (<50 years), 300-900 pg/mL (50-75 years), 300-1800 pg/mL (>75 years).Interpretation: Indeterminate. Consider other reasons for NT Pro-BNP elevation.Result: >450 pg/mL (<50 years), >900 pg/mL (50-75 years), >1800 pg/mL (>75 years).Interpretation: Positive. Heart failure likely. Performed By: #### N T-PROBNP ####[facility] PATHOLOGY [id number] [place], PHOSPHORUSon 08-27-2024 Phosphate [Mass/Vol] 4.7 mg/dL Normal 2.5-5.0 [facility] Comment on above: Performed By: #### P HOS, FT3, T4 F, VITD25, xochitl ####[facility] PATHOLOGY [id number] [place], [place], Patient Instructionson 08-27 Group Home Supervisor Authentication Interface Message Text Normal [facility] [employer] [facility] Progress Noteson 08-27-2024 Group Home Supervisor Authentication Interface Message Text Identity was confirmed by verifying patient name and date of . Blood drawn for patient. Blood obtained from right and left hand, using 21 gauge butterfly. Patient denies discomfort, bleeding controlled, bandage applied. Site appears normal. Normal [facility] [employer] [facility] Group Home Supervisor Authentication Interface Message Text Identification was verified by patient verbalizing his name and date of . Normal [facility] [employer] [facility] Group Home Supervisor Authentication Interface Message Text Normal [facility] [employer] [facility] SYPHILIS TOTAL/TPPAon 2024 SYPHILIS TOTAL (IGG/IGM) Non-Reactive Normal Non-Reactive [facility] [employer] [facility] Comment on above: Order Comment: No re sults found for: TPPANo components found for: FTANo serologic evidence of syphilis.If recent exposure/early infection is suspected, repeat testing in 2-4 weeks. Performed By: #### M G, TSH HS, CALEB, SYPTOTALTPPA, 58907-1, VITB12, CH8 ####[facility] PATHOLOGY [id number] [place], TPPA Normal [facility] [employer] [facility] Comment on above: Order Comment: No re sults found for: TPPANo components found for: FTANo serologic evidence of syphilis.If recent exposure/early infection is suspected, repeat testing in 2-4 weeks. Performed By: #### M G, TSH HS, CALEB, SYPTOTALTPPA, 55038-5, VITB12, CH8 ####S PATHOLOGY [id number] [place], [place], THYROXINE (T4), FREEon 08-27 T4 F 1.40 ng/dL High 0.61-1.12 [facility] [employer] [facility] Comment on above: Performed By: #### P HOS, FT3, T4 F, VITD25, xochitl ####S PATHOLOGY [id number] [place], TRIIODOTHYRONINE (T3), FREEo n 08-27-2024 FT3 2.8 pg/mL Normal 2.5-3.9 [facility] Comment on above: Performed By: #### P HOS, FT3, T4 F, VITD25, xochitl ####[facility] PATHOLOGY [id number] [place], [place], TSHon 08-27-2024 TSH 0.566 uIU/mL Normal 0.450-5.330 [facility] Comment on above: Performed By: #### M G, TSH HS, CALEB, SYPTOTALTPPA, 30396-4, VITB12, CH8 ####[facility] PATHOLOGY [id number] [place], [place], Telephone Encounteron 2024 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 Interface Message Text Normal [facility] URINALYSIS,AUTO-IN OFFICEon 08-27-2024 BILIRUBIN, URINE POC Positive Abnormal Negative [facility] Comment on above: Order Comment: TEST PERFORMED AT:[place] [address] Performed By: #### 8 1003 ####[facility] [address]ed[address]whuwb[address] [place], [place] BLOOD, URINE POC Trace Abnormal Negative [facility] Comment on above: Order Comment: TEST PERFORMED AT:[place] [address] Performed By: #### 8 1003 ####[facility] Rlyiypqqt6046 [place], [place] CLARITY, POC Clear Normal [facility] Comment on above: Order Comment: TEST PERFORMED AT:[place] [address] Performed By: #### 8 1003 ####[facility] W[address]ajbfj[address] [place], [place] COLOR, POC Chaya Normal [facility] Comment on above: Order Comment: TEST PERFORMED AT:[place] [address] Performed By: #### 8 1003 ####[facility] Upqfzckys8483 [place], [place] GLUCOSE, URINE POC Negative Normal Negative [facility] Comment on above: Order Comment: TEST PERFORMED AT:[place] [address] Performed By: #### 8 1003 ####[facility] Fgufcgwsx5764 [place] [id number] KETONES, URINE POC Trace Abnormal Negative [facility] Comment on above: Order Comment: TEST PERFORMED AT:[place] [address] Performed By: #### 8 1003 ####[facility] Finywxuma8549 [place] [id number] LEUKOCYTES, URINE POC Negative Normal Negative [facility] Comment on above: Order Comment: TEST PERFORMED AT:[place] [address] Performed By: #### 8 1003 ####[facility] Mderlcxax0189 [place] [id number] NITRITES, URINE POC Negative Normal Negative [facility] Comment on above: Order Comment: TEST PERFORMED AT:[place] [address] Performed By: #### 8 1003 ####[facility] Kmevkgzsk1445 [place] [id number] PH, URINE POC 5.0 Normal 5.0-8.0 [facility] Comment on above: Order Comment: TEST PERFORMED AT:[place] [address] Performed By: #### 8 1003 ####[facility] Xyprhmrlm9344 [place] [address] PROTEIN, URINE POC 100 Abnormal Negative [facility] Comment on above: Order Comment: TEST PERFORMED AT:[place] [address] Performed By: #### 8 1003 ####[facility] Wlqalwquy1351 [place] [id number] SPECIFIC GRAVITY, POC >=1.030 Normal 1.005 - 1.030 [facility] Comment on above: Order Comment: TEST PERFORMED AT:[place] [address] Performed By: #### 8 1003 ####[facility] [address] [place], [place] UROBILINOGEN, URINE POC 2.0 Abnormal 0.2 - 1.0 [facility] Comment on above: Order Comment: TEST PERFORMED AT:[place] [address] [address] [place] [address] Performed By: #### 8 1003 ####[facility] Baukgvsge0604 [place], [place] URINE CULTUREon 08-27-2024 Bacteria identified Cx Nom (U) C URINE: No growth of greater than 1,000 CFU/ml Normal [facility] Comment on above: Performed By: #### C URINE ####[facility] [address]ihpvy4[address] [place], [place] VITAMIN B12 (CYANOCOBALAMIN) on 08-27-2024 Cobalamin (Vitamin B12) [Mass/Vol] 927 pg/mL High 180-914 [facility] Comment on above: Order Comment: Defic ient: <= 145 pg/mLInsufficient: 145 - 180 pg/mLSufficient: 180 - 914 pg/mL Performed By: #### M G, TSH HS, CALEB, SYPTOTALTPPA, 81074-9, VITB12, CH8 ####[facility] PATHOLOGY DEZWLWPPEI3428 [place], [place], VITAMIN D, 25-HYDROXYon 08-01 VITD25 13.3 ng/mL Low 30-100 [facility] Comment on above: Order Comment: Defic ient : <20.0 ng/mLInsufficient : 20.0-29.9 ng/mLSufficient : 30.0 - 100.0 ng/mLPotential Toxicity : >100.0 ng/mL Performed By: #### P HOS, FT3, T4 F, VITD25, xochitl ####[facility] PATHOLOGY [id number] [place], [place], 36on 08-25-2024 36 Normal [facility] CBC W Auto Differential pane l (Bld)on 08-25-2024 Basophils (Bld) [#/Vol] 0 10*3/uL 0.0 - 0.2 10*3/uL [facility] Basophils/100 WBC (Bld) 0.2 % 0.0 - 2.0 % [facility] Eosinophils (Bld) [#/Vol] 0 10*3/uL 0.0 - 0.5 10*3/uL [facility] Eosinophils/100 WBC (Bld) 0.1 % 0.0 - 6.0 % [facility] Erythrocyte distribution width (RBC) [Ratio] 12.6 % 11.5 - 15.0 % [facility] Hematocrit (Bld) [Volume fraction] 41.3 % 40.0 - 52.0 % [facility] Hemoglobin (Bld) [Mass/Vol] 13.6 g/dL 13.0 - 18.0 g/dL [facility] Immature granulocytes (Bld) [#/Vol] 0 10*3/uL NINF - 0.1 10*3/uL [facility] Immature granulocytes/100 WBC (Bld) 0.2 % 0.0 - 2.0 % [facility] Interpretation and review of laboratory results Abnormal [facility] Lymphocytes (Bld) [#/Vol] 2.4 10*3/uL 1.0 - 4.3 10*3/uL [facility] Lymphocytes/100 WBC (Bld) 29.7 % 15.0 - 45.0 % [facility] MCH (RBC) [Entitic mass] 33.2 pg 26.0 - 34.0 pg [facility] MCHC (RBC) [Mass/Vol] 32.9 % 30.5 - 36.0 % [facility] MCV (RBC) [Entitic vol] 100.7 fL High 77.0 - 99.0 fL [facility] Monocytes (Bld) [#/Vol] 0.7 10*3/uL 0.0 - 0.9 10*3/uL [facility] Monocytes/100 WBC (Bld) 8.2 % 5.0 - 13.0 % [facility] Neutrophils (Bld) [#/Vol] 5.1 10*3/uL 1.8 - 7.5 10*3/uL [facility] Neutrophils/100 WBC (Bld) 61.6 % 38.0 - 82.0 % [facility] Nucleated RBC/100 WBC (Bld) [Ratio] 0 % [facility] Platelet mean volume (Bld) [Entitic vol] 9.5 fL 9.0 - 12.7 fL [facility] Platelets (Bld) [#/Vol] 227 10*3/uL 140 - 440 10*3/uL [facility] RBC (Bld) [#/Vol] 4.1 10*6/uL Low 4.40 - 5.9 0 10*6/uL [facility] WBC (Bld) [#/Vol] 8.2 10*3/uL 3.6 - 10.7 10*3/uL [facility] CBC WITH AUTO DIFFERENTIALon 08-25-2024 Basophils (Bld) [#/Vol] 0.0 10*3/uL Normal 0.0-0.2 [facility] Comment on above: Performed By: #### L [id number] ####Software Designer: LESLEE HRENANDEZ ([id number])[facility] [place] [address] Basophils/100 WBC (Bld) 0.2 % Normal 0.0-2.0 [facility] Comment on above: Performed By: #### L [id number] ####Software Designer: LESLEE HERNANDEZ ([id number])[facility] [place] [address] Eosinophils (Bld) [#/Vol] 0.0 10*3/uL Normal 0.0-0.5 [facility] Comment on above: Performed By: #### L [id number] ####Software Designer: LESLEE HERNANDEZ ([id number])[facility] ([facility])[address] [place] [address] Eosinophils/100 WBC (Bld) 0.1 % Normal 0.0-6.0 [facility] Comment on above: Performed By: #### L [id number] ####Software Designer: LESLEE HERNANDEZ ([id number])THE [facility] [place] [address] Erythrocyte distribution width (RBC) [Ratio] 12.6 % Normal 11.5-15.0 [facility] Comment on above: Performed By: #### L [id number] ####Software Designer: LESLEE [id number])[facility] [place] (SBHLAB)[address] Hematocrit (Bld) [Volume fraction] 41.3 % Normal 40.0-52.0 [facility] Comment on above: Performed By: #### L [id number] ####Software Designer: LESLEE HERNANDEZ ([id number])[facility] [place] (SBHLAB)[address] Hemoglobin (Bld) [Mass/Vol] 13.6 g/dL Normal 13.0-18.0 [facility] Comment on above: Performed By: #### L [id number] ####Software Designer: LESLEE HERNANDEZ ([id number])[facility] IMMATURE GRANS % 0.2 % Normal 0.0-2.0 [facility] Comment on above: Performed By: #### L [id number] ####Software Designer: LESLEE HERNANDEZ ([id number])[facility] ([facility])[address] IMMATURE GRANS ABSOLUTE 0.0 10*3/uL Normal <0.1 [facility] Comment on above: Performed By: #### L [id number] ####Software Designer: LESLEE HERNANDEZ ([id number])[facility] ([facility] [place] [address] [place] Lymphocytes (Bld) [#/Vol] 2.4 10*3/uL Normal 1.0-4.3 [facility] Comment on above: Performed By: #### L [id number] ####Software Designer: LESLEE HERNANDEZ ([id number])[facility] ([facility] Lymphocytes/100 WBC (Bld) 29.7 % Normal 15.0-45.0 [facility] Comment on above: Performed By: #### L [id number] ####Software Designer: LESLEE HERNANDEZ ([id number])[facility] [place] (SBHLAB)[address] MCH (RBC) [Entitic mass] 33.2 pg Normal 26.0-34.0 [facility] Comment on above: Performed By: #### L [id number] ####Software Designer: LESLEE TURKTYRONE ([id number])[facility] [place] (SBHLAB)[address] MCHC 32.9 % Normal 30.5-36.0 [facility] Comment on above: Performed By: #### L [id number] ####Software Designer: LESLEE HERNANDEZ ([id number])[facility] [place] (SBHLAB)[address] MCV (RBC) [Entitic vol] 100.7 fL High 77.0-99.0 [facility] Comment on above: Performed By: #### L [id number] ####Software Designer: LESLEE HERNANDEZ ([id number])[facility] [place] (SBHLAB)[address] Monocytes (Bld) [#/Vol] 0.7 10*3/uL Normal 0.0-0.9 [facility] Comment on above: Performed By: #### L [id number] ####Software Designer: LESLEE HERNANDEZ ([id number])[facility] [place] (SBHLAB)[address] Monocytes/100 WBC (Bld) 8.2 % Normal 5.0-13.0 [facility] Comment on above: Performed By: #### L [id number] ####Software Designer: LESLEE HERNANDEZ ([id number])[facility] [place] (SBHLAB)[address] NEUTROPHILS ABSOLUTE 5.1 10*3/uL Normal 1.8-7.5 [facility] Comment on above: Performed By: #### L [id number] ####Software Designer: LESLEE HERNANDEZ ([id number])[facility] [place] (SBHLAB)[address] Neutrophils/100 WBC (Bld) 61.6 % Normal 38.0-82.0 [facility] Comment on above: Performed By: #### L [id number] ####Software Designer: LESLEE HERNANDEZ ([id number])[facility] (SB[facility])[address] NRBC 0.0 /100 WBCs Normal 0.0-2.0 [facility] Comment on above: Performed By: #### L [id number] ####Software Designer: LESLEE HERNANDEZ ([id number])[facility] ([facility])[address] Platelet mean volume (Bld) [Entitic vol] 9.5 fL Normal 9.0-12.7 [facility] Comment on above: Performed By: #### L [id number] ####Software Designer: LESLEE HERNANDEZ ([id number])[facility] ([facility])[address] Platelets (Bld) [#/Vol] 227 10*3/uL Normal 140-440 [facility] Comment on above: Performed By: #### L [id number] ####Software Designer: LESLEE HERNANDEZ ([id number])[facility] ([facility])[address] RBC (Bld) [#/Vol] 4.10 10*6/uL Low 4.40-5.90 [facility] Comment on above: Performed By: #### L [id number] ####Software Designer: LESLEE HERNANDEZ ([id number])[facility] ([facility])[address] WBC (Bld) [#/Vol] 8.2 10*3/uL Normal 3.6-10.7 [facility] Comment on above: Performed By: #### L [id number] ####Software Designer: LESLEE HERNANDEZ ([id number])[facility] [place] (SBHLAB)[address] COMPREHENSIVE METABOLIC PANE Ming 08-25-2024 Albumin [Mass/Vol] 3.4 g/dL Low 3.5-5.0 [facility] Comment on above: Performed By: #### L AB17, [id number], [id number] ####Software Designer: LESLEE HERNANDEZ ([id number])[facility] [place] (SBHLAB)[address] ALP [Catalytic activity/Vol] 161 U/L High 40-150 [facility] Comment on above: Performed By: #### L AB17, [id number], [id number] ####Software Designer: LESLEE HERNANDEZ ([id number])[facility] [place] (SBHLAB)[address] ALT [Catalytic activity/Vol] 110 U/L High <40 [facility] Comment on above: Performed By: #### L AB17, [id number], [id number] ####Software Designer: LESLEE HERNANDEZ ([id number])[facility] [place] (SBHLAB)[address] Anion gap [Moles/Vol] 14 mmol/L High 3-13 [facility] Comment on above: Performed By: #### L AB17, [id number], [id number] ####Software Designer: LESLEE HERNANDEZ ([id number])[facility] [place] (SBHLAB)[address] AST [Catalytic activity/Vol] 75 U/L High <34 [facility] Comment on above: Performed By: #### L AB17, [id number], [id number] ####Software Designer: LESLEE HERNANDEZ ([id number])[facility] [place] (SBHLAB)[address] Bilirubin [Mass/Vol] 3.0 mg/dL High <1.2 [facility] Comment on above: Performed By: #### L AB17, [id number], [id number] ####Software Designer: LESLEE HERNANDEZ ([id number])[facility] (SBHLAB)[address] Calcium [Mass/Vol] 9.3 mg/dL Normal 8.4-10.2 [facility] Comment on above: Performed By: #### Pedro AB17, [id number], [id number] ####Software Designer: LESLEE HERNANDEZ ([id number])[facility] ([facility])[address] Chloride [Moles/Vol] 102 mmol/L Normal 98-107 [facility] Comment on above: Performed By: #### Pedro AB17, [id number], [id number] ####Software Designer: LESLEE HERNANDEZ ([id number])[facility] (SBHLAB)[address] CO2 [Moles/Vol] 22 mmol/L Normal 22-29 [facility] Comment on above: Performed By: #### Pedro AB17, [id number], [id number] ####Software Designer: LESLEE HERNANDEZ ([id number])[facility] (HLAB)[address] Creatinine [Mass/Vol] 2.06 mg/dL High 0.72-1.25 [facility] Comment on above: Performed By: #### Pedro AB17, [id number], [id number] ####Software Designer: LESLEE HERNANDEZ ([id number])[facility] (SBHLAB)[address] GLOMERULAR FILTRATION RATE ML/MIN/1.73 SQ M.PREDICTED 39.5 mL/min/1.73m*2 Low >60.0 [facility] Comment on above: Result Comment: Calc ulation based on the Chronic Kidney Disease Epidemiology Collaboration (CKD-EPI) equation refit without adjustment for race Performed By: #### L AB17, [id number], [id number] ####Software Designer: LESLEE HERNANDEZ ([id number])[facility] (SBHLAB)[address] Glucose [Mass/Vol] 113 mg/dL High 74-100 [facility] Comment on above: Performed By: #### L AB17, [id number], [id number] ####Software Designer: LESLEE HERNANDEZ ([id number])[facility] (SBHLAB)[address] Potassium [Moles/Vol] 3.9 mmol/L Normal 3.5-5.1 [facility] Comment on above: Result Comment: [facility] potassium values may be up to 0.5 mmol/L lower than serum values. Performed By: #### Pedro AB17, [id number], [id number] ####Software Designer: LESLEE HERNANDEZ ([id number])[facility] (SBHLAB)[address] Protein [Mass/Vol] 6.6 g/dL Normal 6.4-8.3 [facility] Comment on above: Performed By: #### Pedro JESSICA17, [id number], [id number] ####Software Designer: LESLEE HERNANDEZ ([id number])[facility] (SBHLAB)[address] Sodium [Moles/Vol] 138 mmol/L Normal 136-145 [facility] Comment on above: Performed By: #### Pedro JESSICA17, [id number], [id number] ####Software Designer: LESLEE HERNANDEZ ([id number])[facility] (SBHLAB)[address] [place] [address] [place] Urea nitrogen [Mass/Vol] 51 mg/dL High 8-21 [facility] Comment on above: Performed By: #### L AB17, [id number], [id number] ####Software Designer: LESLEE HERNANDEZ ([id number])[facility] (SBHLAB)[address] Comprehensive metabolic 1998 panelon 08-25-2024 Albumin [Mass/Vol] 3.4 g/dL Low 3.5 - 5.0 g/dL [facility] ALP [Catalytic activity/Vol] 161 U/L High 40 - 150 U/L [facility] ALT [Catalytic activity/Vol] 110 U/L High NINF - 40 U/L [facility] Anion gap [Moles/Vol] 14 mmol/L High 3 - 13 mmol/L [facility] AST [Catalytic activity/Vol] 75 U/L High NINF - 34 U/L [facility] Bilirubin [Mass/Vol] 3 mg/dL High NINF - 1.2 mg/dL [facility] Calcium [Mass/Vol] 9.3 mg/dL 8.4 - 10. 2 mg/dL [facility] Chloride [Moles/Vol] 102 mmol/L 98 - 10 7 mmol/L [facility] CO2 [Moles/Vol] 22 mmol/L 22 - 29 mmol/L [facility] Creatinine [Mass/Vol] 2.06 mg/dL High 0.72 - 1.25 mg/dL [facility] GFR/1.73 sq M.predicted (S/P/Bld) [Vol rate/Area] 39.5 mL/min Low - PINF [facility] Comment on above: Calculation based on the Chronic Kidney Disease Epidemiology Collaboration (CKD-EPI) equation refit without adjustment for race Glucose [Mass/Vol] 113 mg/dL High 74 - 100 mg/dL [facility] Interpretation and review of laboratory results Abnormal [facility] Potassium [Moles/Vol] 3.9 mmol/L 3.5 - 5.1 mmol/L [facility] Comment on above: Plasma potassium heidi ues may be up to 0.5 mmol/L lower than serum values. Protein [Mass/Vol] 6.6 g/dL 6.4 - 8.3 g/dL [facility] Sodium [Moles/Vol] 138 mmol/L 136 - 145 mmol/L [facility] Urea nitrogen [Mass/Vol] 51 mg/dL High 8 - 21 mg/dL [facility] ECG 12-LEADon 08-25-2024 ECG 12-LEAD IMPRESSION: Sinus tachycardia Left atrial enlargement Nonspecific IVCD with LAD Left ventricular hypertrophy ST elevation secondary to IVCD Electronically Signed On 08-25-2024 17:33:52 EST by Jamal Dia Normal [facility] ED Nursing Noteon 08-25-2024 ED Nursing Note Patient refusing covid/flu swab stating I would know if I had that and I haven't gotten it since it came out. Dr. Schaffer notified and aware. Normal [facility] ED Provider Noteon ED Provider Note Normal [facility] HIGH SENSITIVITY TROPONIN, S ERIAL BASELINEon 08-25-2024 TROPONIN HS SERIAL BASELINE 28 ng/L Normal <=35 [facility] Comment on above: Result Comment: In i ndividuals presenting with symptoms > 2h, a baseline troponin <= 5 ng/L suggests acutecardiac injury is unlikely and further serial testing is generally not indicated. Performed By: #### L AB17, [id number], [id number] ####Software Designer: LESLEE HERNANDEZ ([id number])[facility] ([facility])[address] [place] [address] HIGH SENSITIVITY TROPONIN, S ERIAL, SECOND TESTon 08-25-2024 2H TROPONIN HS (SERIAL 2ND TROPONIN) 28 ng/L Normal <=35 [facility] Comment on above: Result Comment: Risi ng or falling troponin delta below 2 ng/L as compared to baseline value suggests thatacute cardiac injury is unlikely. Performed By: #### L [id number] ####Software Designer: LESLEE HERNANDEZ ([id number])[facility] ([facility])[address] [place] [address] NT PRO BNPon 08-25-2024 Natriuretic peptide B (Bld) [Mass/Vol] 27315 pg/mL High <125 [facility] Comment on above: Performed By: #### L AB17, [id number], [id number] ####Software Designer: LESLEE HERNANDEZ ([id number])[facility] ([facility])[address] [place] [address] [place] Natriuretic peptide B [Mass/ Vol]on 08-25-2024 Interpretation and review of laboratory results Abnormal [facility] Natriuretic peptide B (Bld) [Mass/Vol] 76942 pg/mL High NINF - 125 pg/mL [facility] No Panel Informationon 08-25 2h Troponin HS (Serial 2nd Troponin) 28 ng/L NINF - 35 ng/L [facility] Comment on above: Rising or falling tr oponin delta below 2 ng/L as compared to baseline value suggests that acute cardiac injury is unlikely. Interpretation and review of laboratory results Normal [facility] Interpretation and review of laboratory results Normal [facility] Troponin HS Serial Baseline 28 ng/L NINF - 35 ng/L [facility] Comment on above: In individuals prese nting with symptoms > 2h, a baseline troponin <= 5 ng/L suggests acute cardiac injury is unlikely and further serial testing is generally not indicated. [facility] XR Chest Single viewon 08-25 Moderate cardiomegaly, unchanged. No acute pulmonary abnormality. Report Dictated on Electronically Signed By: Eugene Louise DO Electronically Signed Date/Time: 08/25/2024 3:12 AM EST [facility] [employer] Patient Name: CARLO MEDINA : 1980 [...] BONES/JOINTS: Thoracic degenerative spondylosis. No acute fracture. [facility] Eugene Louise DO - 08/25/2024 Patient [...] DO Electronically Signed Date/Time: 08/25/2024 3:12 AM [facility] Radiology Study observation (narrative) [facility] XR Chest Single viewOrdered By: Eugene Louise on 08-25-2024 [facility] [employer] Work Phone: 36on 08-23-2024 36 Normal [facility] 36 Discharged with hear t failure. Needs 72 hour post discharge phone call. Normal [facility] CT ABDOMEN PELVIS WO IV CONT RASTon 08-23-2024 CT ABDOMEN PELVIS WO IV CONTRAST Normal [facility] CT Abdomen and Pelvis WO con traston 08-23-2024 1. Cardiomegaly. 2. Small amount of free fluid within the dependent pelvis. Trace amount of perihepatic free fluid. Report Dictated on Electronically Signed By: Juan Pereira MD Electronically Signed Date/Time: 08/23/2024 6:56 AM [facility] [employer] Patient Name: CARLO MEDINA : 1980 [...] umbilical hernia. Osseous structures: No osseous abnormalities. [facility] Juan Pereira MD - 08/23/2024 Patient Name: [facility] : 1980 [id number] Exam Date/Time: 08/23/2024 06:34 Procedure: CT ABDOMEN [...] Electronically Signed Date/Time: 08/23/2024 6:56 AM EST [facility] Radiology Study observation (narrative) [facility] ECG 12-LEADon 08-23-2024 ECG 12-LEAD Normal [facility] ED NOTEon 08-23-2024 ED NOTE HNO ID: [id number] Author: LORAINE ZAYAS Medic Service: ? Author Type: [employer] Operator Type: ED Notes Filed: 08/23/2024 03:55 Note Text: Refused C trop Normal [facility] ED NOTE HNO ID: [id number] Author: JC CASEY ST Service: Emergency Medicine Author Type: Rock Crusher Operator Type: ED Notes Filed: 08/23/2024 03:49 Note [...] third trop needing to be drawn. Normal [facility] ED Nursing Noteon 08-23-2024 ED Nursing Note Normal [facility] ED Nursing Note Pt. Ambulated to bathroom. Will monitor for pt. Return to room. Normal [facility] ED Nursing Note Normal [facility] ED Provider Noteon ED Provider Note Normal [facility] No Panel Informationon 08-23 P Cylinder 58 degrees [facility] Health DE Interval 129 ms [facility] QRS Cylinder -78 degrees [facility] QRSD Interval 155 ms [facility] Interval 380 ms [facility] QTC Interval 535 ms [facility] T Wave Cylinder 76 degrees [facility] Sinus tachycardia Ventricular premature complex Probable left atrial enlargement Nonspecific IVCD with LAD Left ventricular hypertrophy Anterior Q waves, possibly due to LVH No change compared to previous ekg Electronically Signed On 08-23-2024 07:36:51 EST by Vic Payan M D - 08/23/2024 IMPRESSION: Sinus tachycardia Ventricular premature complex Probable left atrial enlargement Nonspecific IVCD with LAD Left ventricular hypertrophy Anterior Q waves, possibly due to LVH No change compared to previous ekg Electronically Signed On 08-23-2024 07:36:51 EST by Vic [facility] Health Progress Noteon 08-23-2024 Progress Note Normal [facility] Vital signson 08-23-2024 Heart rate 119 /min bpm [facility] XR Chest Single viewon 08-23 1. No acute cardiopulmonary process. 2. Cardiomegaly. Report Dictated on Electronically Signed By: Juan Pereira MD Electronically Signed Date/Time: 08/23/2024 6:43 AM EST [facility] [employer] Patient Name: CARLO MEDINA : 1980 Exam Date/Time: 08/23/2024 06:38 Procedure: XR CHEST [...] changes of the thoracic spine are noted. [facility] Juan Pereira MD - 08/23/2024 Patient Name: CARLO MEDINA : 1980 Exam Date/Time: 08/23/2024 06:38 Procedure: XR CHEST [...] Electronically Signed Date/Time: 08/23/2024 6:43 AM EST [employer] Radiology Study observation (narrative) [employer] XR Chest Single viewOrdered By: Juan Pereira on 08-23-2024 [employer] Work Phone: CBC W Auto Differential pane l (Bld)on 08-22-2024 Basophils (Bld) [#/Vol] 0.03 10*3/uL Normal <0.11 [facility] Comment on above: Order Comment: Speci men Type: BLOOD SPECIMENOrdering Facility: [facility] Address: [address] [place] [address] Performed By: #### 5 7021-8 ####[facility] LABORATORYCLIA [id number] [place] [address] [place] Basophils/100 WBC (Bld) 0.3 % Normal [facility] Comment on above: Order Comment: Specdanilela reynoso Type: BLOOD SPECIMENOrdering Facility: [facility] Address: [address] [place] [address] Performed By: #### 5 7021-8 ####[facility] LABORATORYCLIA [id number] [place] [address] [place] Differential cell count method Nom (Bld) Auto Normal [facility] Comment on above: Order Comment: Speci men Type: BLOOD SPECIMENOrdering Facility: [facility] Address: [address] [place] [address] Performed By: #### 5 7021-8 ####[facility] LABORATORYCLIA [id number] [place] [address] [place] Eosinophils (Bld) [#/Vol] 0.05 10*3/uL Normal <0.46 [facility] Comment on above: Order Comment: Speci men Type: BLOOD SPECIMENOrdering Facility: [facility] Address: [address] [place] [address] Performed By: #### 5 7021-8 ####[facility]ORYCLIA [id number] [address] Eosinophils/100 WBC (Bld) 0.6 % Normal [facility] Comment on above: Order Comment: Speci men Type: BLOOD SPECIMENOrdering Facility: [facility] Address: [address] [place] [address] Performed By: #### 5 7021-8 ####[facility]ATORYCLIA [id number] [address] Erythrocyte distribution width (RBC) [Ratio] 12.7 % Normal 11.5-15.0 [facility] Comment on above: Order Comment: Speci men Type: BLOOD SPECIMENOrdering Facility: [facility] Address: [address] [place] [address] Performed By: #### 5 7021-8 ####[facility]ATORYCLIA [id number] [address] Hematocrit (Bld) [Volume fraction] 45.0 % Normal 39.0-51.0 [facility] Comment on above: Order Comment: Speci men Type: BLOOD SPECIMENOrdering Facility: [facility] Address: [address] [place] [address] Performed By: #### 5 7021-8 ####[facility] LABORATORYCLIA [id number] [address] Hemoglobin (Bld) [Mass/Vol] 14.3 g/dL Normal 13.0-17.0 [facility] Comment on above: Order Comment: Speci men Type: BLOOD SPECIMENOrdering Facility: [facility] Address: [address] [place] [address] Performed By: #### 5 7021-8 ####[facility] LABORATORYCLIA [id number] [address] Immature granulocytes (Bld) [#/Vol] 10*3/uL Normal <0.10 [facility] Comment on above: Order Comment: Speci men Type: BLOOD SPECIMENOrdering Facility: [facility] Address: [address] [place] [address] Performed By: #### 5 7021-8 ####[facility]OR[facility]ORYCLIA [id number] [address] Immature granulocytes/100 WBC (Bld) 0.2 % Normal [facility] Comment on above: Order Comment: Speci men Type: BLOOD SPECIMENOrdering Facility: [facility] Address: [address] [place] [address] Performed By: #### 5 7021-8 ####[facility] LABORATORYCLIA [id number] [address] [place] Lymphocytes (Bld) [#/Vol] 2.99 10*3/uL Normal 1.00-4.00 [facility] Comment on above: Order Comment: Speci men Type: BLOOD SPECIMENOrdering Facility: [facility] Address: [address] [place] [address] Performed By: #### 5 7021-8 ####[facility] LABORATORYCLIA [id number] [address] Lymphocytes/100 WBC (Bld) 33.1 % Normal [facility] Comment on above: Order Comment: Speci men Type: BLOOD SPECIMENOrdering Facility: [facility] Address: [address] [place] [address] Performed By: #### 5 7021-8 ####[facility] LABORATORYCLIA [id number] [address] [place] MCH (RBC) [Entitic mass] 33.8 pg Normal 26.0-34.0 [facility] Comment on above: Order Comment: Speci men Type: BLOOD SPECIMENOrdering Facility: [facility] Address: [address] [place] [address] Performed By: #### 5 7021-8 ####[facility] LABORATORYCLIA [id number] [address] [place] MCHC (RBC) [Mass/Vol] 31.8 g/dL Normal 30.5-36.0 [facility] Comment on above: Order Comment: Speci men Type: BLOOD SPECIMENOrdering Facility: [facility] Address: [address] [place] [address] Performed By: #### 5 7021-8 ####[facility]ORYCLIA [id number] [address] [place] MCV (RBC) [Entitic vol] 106.4 fL High 80.0-100.0 [facility] Comment on above: Order Comment: Speci men Type: BLOOD SPECIMENOrdering Facility: [facility] Address: [address] [place] [address] Performed By: #### 5 7021-8 ####[facility]ATORYCLIA [id number] [address] [place] Monocytes (Bld) [#/Vol] 0.70 10*3/uL Normal <0.87 [facility] Comment on above: Order Comment: Speci men Type: BLOOD SPECIMENOrdering Facility: [facility] Address: [address] [place] [address] Performed By: #### 5 7021-8 ####[facility]ORYCLIA [id number] [address] Monocytes/100 WBC (Bld) 7.8 % Normal [facility] Comment on above: Order Comment: Speci men Type: BLOOD SPECIMENOrdering Facility: [facility] Address: [address] [place] [address] Performed By: #### 5 7021-8 ####[facility]ORYCLIA [id number] [address] [place] Neutrophils (Bld) [#/Vol] 5.24 10*3/uL Normal 1.45-7.50 [facility] Comment on above: Order Comment: Speci men Type: BLOOD SPECIMENOrdering Facility: [facility] Address: [address] [place] [address] Performed By: #### 5 7021-8 ####[facility]ORYCLIA [id number] [address] [place] Neutrophils/100 WBC (Bld) 58.0 % Normal [facility] Comment on above: Order Comment: Speci men Type: BLOOD SPECIMENOrdering Facility: [facility] Address: [address] [place] [address] Performed By: #### 5 7021-8 ####[facility]ORYCLIA [id number] [address] [place] Nucleated RBC (Bld) [#/Vol] 10*3/uL Normal <0.01 [facility] Comment on above: Order Comment: Speci men Type: BLOOD SPECIMENOrdering Facility: [facility] Address: [address] [place] [address] Performed By: #### 5 7021-8 ####[facility]ORYCLIA [id number] [address] [place] Nucleated RBC/100 WBC (Bld) [Ratio] 0.0 /[address] [facility] Comment on above: Order Comment: Speci men Type: BLOOD SPECIMENOrdering Facility: [facility] Address: [address] [place] [address] Performed By: #### 5 7021-8 ####[facility]ATORYCLIA [id number] [place] [address] [place] Platelet mean volume (Bld) [Entitic vol] 8.8 fL Low 9.0-12.7 [facility] Comment on above: Order Comment: Speci men Type: BLOOD SPECIMENOrdering Facility: [facility] Address: [address] [place] [address] Performed By: #### 5 7021-8 ####[facility]ORYCLIA [id number] [place] [address] [place] Platelets (Bld) [#/Vol] 283 10*3/uL Normal 150-400 [facility] Comment on above: Order Comment: Speci men Type: BLOOD SPECIMENOrdering Facility: [facility] Address: [address] [place] [address] Performed By: #### 5 7021-8 ####[facility]ORYCLIA [id number] [address] STATES OF [facility] RBC (Bld) [#/Vol] 4.23 10*6/uL Normal 4.20-6.00 [facility] Comment on above: Order Comment: Speci men Type: BLOOD SPECIMENOrdering Facility: [facility] Address: [address] [place] [address] Performed By: #### 5 7021-8 ####[facility]ORYCLIA [id number] [address] OF [facility] WBC (Bld) [#/Vol] 9.03 10*3/uL Normal 3.70-11.00 [facility] Comment on above: Order Comment: Speci men Type: BLOOD SPECIMENOrdering Facility: [facility] Address: [address] [place] [address] Performed By: #### 5 7021-8 ####[facility]ORYCLIA [id number] [address] OF [facility] Comprehensive metabolic 2000 panelon 08-22-2024 Albumin [Mass/Vol] 3.9 g/dL Normal 3.9-4.9 [facility] Comment on above: Order Comment: Speci men Type: BLOOD SPECIMENOrdering Facility: [facility] Address: [address] [place] [address] Performed By: #### 2 4323-8, 3040-3, 69566-4, 00852-0 ####[facility]ORYCLIA [id number] [address] ALP [Catalytic activity/Vol] 197 U/L High 38-113 [facility] Comment on above: Order Comment: Speci men Type: BLOOD SPECIMENOrdering Facility: [facility] Address: [address] [place] [address] Performed By: #### 2 4323-8, 3040-3, 90150-4, 16850-8 ####[facility]ORYCLIA [id number] [place] [address] [place] ALT With P-5'-P [Catalytic activity/Vol] 60 U/L High 10-54 [facility] Comment on above: Order Comment: Speci men Type: BLOOD SPECIMENOrdering Facility: [facility] Address: [address] [place] [address] Performed By: #### 2 4323-8, 3040-3, 37019-1, ####[facility]ORYCLIA [id number] [place] [id number] [place] [facility] Anion gap [Moles/Vol] 13 mmol/L Normal 8-15 [facility] Comment on above: Order Comment: Speci men Type: BLOOD SPECIMENOrdering Facility: [facility] Address: [address] [place] [address] Performed By: #### 2 4323-8, 3040-3, 67507-7, ####[facility]ATORYCLIA [id number] [address] STATES OF [facility] AST With P-5'-P [Catalytic activity/Vol] 45 U/L High 14-40 [facility] Comment on above: Order Comment: Speci men Type: BLOOD SPECIMENOrdering Facility: [facility] Address: [address] [place] [address] Performed By: #### 2 4323-8, 3040-3, 87605-5, 05377-1 ####[facility]ATORYCLIA [id number] [place] [address] [place] Bilirubin [Mass/Vol] 1.4 mg/dL High 0.2-1.3 [facility] Comment on above: Order Comment: Speci men Type: BLOOD SPECIMENOrdering Facility: [facility] Address: [address] [place] [address] Performed By: #### 2 4323-8, 3040-3, 22166-6, 57076-6 ####[facility]ATORYCLIA [id number] [place] [address] [place] Calcium [Mass/Vol] 8.9 mg/dL Normal 8.5-10.2 [facility] Comment on above: Order Comment: Speci men Type: BLOOD SPECIMENOrdering Facility: [facility] Address: [address] [place] [address] Performed By: #### 2 4323-8, 3040-3, 59132-6, ####[facility]ATORYCLIA [id number] [place] [address] [place] Chloride [Moles/Vol] 98 mmol/L Normal 98-107 [facility] Comment on above: Order Comment: Speci men Type: BLOOD SPECIMENOrdering Facility: [facility] Address: [address] [place] [address] Performed By: #### 2 4323-8, 3040-3, 25247-5, ####[facility]ORYCLIA [id number] [place] [address] [place] CO2 [Moles/Vol] 29 mmol/L Normal 22-30 [facility] Comment on above: Order Comment: Speci men Type: BLOOD SPECIMENOrdering Facility: [facility] Address: [address] [place] [address] Performed By: #### 2 4323-8, 3040-3, 19447-3, 32997-5 ####[facility]ATORYCLIA [id number] [place] [address] [place] Creatinine [Mass/Vol] 1.93 mg/dL High 0.73-1.22 [facility] Comment on above: Order Comment: Speci men Type: BLOOD SPECIMENOrdering Facility: [facility] Address: [address] [place] [address] Performed By: #### 2 4323-8, 3040-3, 08965-1, 03676-7 ####[facility]ATORYCLIA [id number] [place] [address] [place] Creatinine and Glomerular filtration rate.predicted panel (S/P/Bld) 43 mL/min/1.73m??? Low >=60 [facility] Comment on above: Order Comment: Sunni reynoso Type: BLOOD SPECIMENOrdering Facility: [facility] Address: [address] [place] [address] Result Comment: Ella mated Glomerular Filtration Rate [...] actual GFR. Performed By: #### 2 4323-8, 3040-3, 95322-2, 41590-1 ####[facility]ATORYCLIA [id number] [place] [id number] [place] Glucose [Mass/Vol] 130 mg/dL High 74-99 [facility] Comment on above: Order Comment: Sunni reynoso Type: BLOOD SPECIMENOrdering Facility: [facility] Address: [address] [place] [address] Result Comment: The [place] [employer] (ADA) provides guidance for cutoff [...] Standards of Medical Care in Diabetes 2016, [place] [employer]. Diabetes Care. 2016.39(Suppl 1). Performed By: #### 2 4323-8, 3040-3, 26825-6, 33128-3 ####[facility]ATORYCLIA [id number] [place] [address] [place] Potassium [Moles/Vol] 3.9 mmol/L Normal 3.7-5.1 [facility] Comment on above: Order Comment: Speci men Type: BLOOD SPECIMENOrdering Facility: [facility] Address: [address] [place] [address] Performed By: #### 2 4323-8, 3040-3, 68061-8, 51228-3 ####[facility]ORYCLIA [id number] [place] [address] [place] Protein [Mass/Vol] 6.8 g/dL Normal 6.3-8.0 [facility] Comment on above: Order Comment: Speci men Type: BLOOD SPECIMENOrdering Facility: [facility] Address: [address] [place] [address] Performed By: #### 2 4323-8, 3040-3, 88042-3, 93371-2 ####[facility]ORYCLIA [id number] [address] STATES OF [facility] Sodium [Moles/Vol] 140 mmol/L Normal 136-144 [facility] Comment on above: Order Comment: Speci men Type: BLOOD SPECIMENOrdering Facility: [facility] Address: [address] [place] [address] Performed By: #### 2 4323-8, 3040-3, 46565-8, 36924-9 ####[facility]ORYCLIA [id number] [place] [address] [place] Urea nitrogen [Mass/Vol] 37 mg/dL High 9-24 [facility] Comment on above: Order Comment: Speci men Type: BLOOD SPECIMENOrdering Facility: [facility] Address: [address] [place] [address] Performed By: #### 2 4323-8, 3040-3, 35924-0, 76259-0 ####[facility]ATORYCLIA [id number] [place] [address] [place] ECG COMPLETEon 08-22-2024 ECG COMPLETE Ventricular Rate : 115 BPM Atrial Rate : 115 BPM P-R Interval : 132 ms QRS Duration : 146 ms Q-T Interval : 388 ms QTC Calculation(Bazett) : 536 ms Calculated P Cylinder : 52 degrees Calculated R Cylinder : -71 degrees Calculated T Cylinder : 81 degrees SINUS TACHYCARDIA LEFT ATRIAL ENLARGEMENT LEFT AXIS DEVIATION LEFT BUNDLE BRANCH BLOCK ABNORMAL ECG NO PREVIOUS ECGS AVAILABLE Confirmed by EMILIE CAM MD ([id number]) on 11/01/2024 10:13:23 PM NAME : CARLO MEDINA PID : [id number] : 1980 Gender : Male Race : Unknown ORD : [id number] Procedure Date : Aug 22 2024 21:24:29 Edit Date : Nov 01 2024 22:13:25 Diagnosis: SINUS TACHYCARDIA LEFT ATRIAL ENLARGEMENT LEFT AXIS DEVIATION LEFT BUNDLE BRANCH BLOCK ABNORMAL ECG NO PREVIOUS ECGS AVAILABLE Confirmed by EMILIE CAM MD ([id number]) on 11/01/2024 10:13:23 PM Test Reason : Chest Pain Location : 4 : [place] Overread By : EMILIE CAM MD Edited By : EMILIE CAM MD Referred By : , Acquired by : JC CASEY [facility] ED Triage Noteon 08-22-2024 ED Triage Note HNO ID: [id number] Author: GRACE BOB PA-C Service: Emergency Medicine Author Type: Physician [employer] Professor Type: ED Triage Notes Filed: 08/22/2024 21:25 [...] around 4 PM today. Recent admission at [facility]. States has been compliant with his meds. [...] ECG COMPLETE SIGNATURE: Grace Bob PA-C Normal [facility] HIGH SENSITIVITY TROPONIN T (INITIAL)on 08-22-2024 Troponin T.cardiac High sensitivity method [Mass/Vol] 35 ng/L High <12 [facility] Comment on above: Order Comment: Speci men Type: BLOOD SPECIMENOrdering Facility: [facility] Address: [address] [place] [address] Performed By: #### L [id number] ####[facility]ATORYCLIA [id number] [place] [address] [place] HIGH SENSITIVITY TROPONIN T (SECOND)on 08-22-2024 Troponin T.cardiac High sensitivity method [Mass/Vol] 35 ng/L High <12 [facility] Comment on above: Order Comment: Speci men Type: BLOOD SPECIMENOrdering Facility: [facility] Address: [address] [place] [address] Performed By: #### L [id number] ####[facility]ATORYCLIA [id number] [place] [address] [place] Lipase SerPl-cCncon 08-22-19 25 Lipase [Catalytic activity/Vol] 34 U/L Normal 16-61 [facility] Comment on above: Order Comment: Speci men Type: BLOOD SPECIMEN [facility] Address: [address] [place] [address] Performed By: #### 2 4325-3 #### [facility] CLIA [id number] [address] [place] [address] [place] Magnesium SerPl-mCncon 08-22 Magnesium [Mass/Vol] 2.2 mg/dL Normal 1.7-2.3 [facility] Comment on above: Order Comment: Speci men Type: BLOOD SPECIMEN [facility] Address: [address] [place] [address] Performed By: #### 2 4325-3 #### [facility] CLIA [id number] [address] NT-proBNP [facility] 08-22 Natriuretic peptide.B prohormone N-Terminal [Mass/Vol] 76717 pg/mL High <125 [facility] Comment on above: Order Comment: Speci men Type: BLOOD SPECIMEN [facility] Address: [address] [place] [address] Performed By: #### 2 4325-3 #### [facility] CLIA [id number] [address] [place] XR CHEST 2V FRONTAL/LATon XR CHEST 2V [...] Large cardiac silhouette IMPRESSION: Enlarged cardiac silhouette. Paraprofessional Aide: JOSE Transcribe Date/Time: Aug 22 2024 11:55P Dictated by : RADHA ASHBY MD This examination was interpreted and the report reviewed and electronically signed by: RADHA ASHBY MD on Aug 22 2024 11:56PM EST [id number] Normal [facility] 30on 08-20-2024 30 Electronically charla d by Jacque Clark RN on 08/20/2024 at 12:54 PM [facility] [id number] 08-20-2024 [id number] Normal [facility] CBC W Auto Differential pane l (Bld)on 08-20-2024 Basophils (Bld) [#/Vol] 0.1 10*3/uL 0.0 - 0.2 10*3/uL [facility] Basophils/100 WBC (Bld) 0.7 % 0.0 - 2.0 % [facility] Eosinophils (Bld) [#/Vol] 0.1 10*3/uL 0.0 - 0.5 10*3/uL [facility] Eosinophils/100 WBC (Bld) 1.2 % 0.0 - 6.0 % [facility] Erythrocyte distribution width (RBC) [Ratio] 12.4 % 11.5 - 15.0 % [facility] Hematocrit (Bld) [Volume fraction] 42.1 % 40.0 - 52.0 % [facility] Hemoglobin (Bld) [Mass/Vol] 14.2 g/dL 13.0 - 18.0 g/dL [facility] Immature granulocytes (Bld) [#/Vol] 0 10*3/uL NINF - 0.1 10*3/uL [facility] Immature granulocytes/100 WBC (Bld) 0.4 % 0.0 - 2.0 % [facility] Interpretation and review of laboratory results Abnormal [facility] Lymphocytes (Bld) [#/Vol] 2.5 10*3/uL 1.0 - 4.3 10*3/uL [facility] Lymphocytes/100 WBC (Bld) 29.9 % 15.0 - 45.0 % [facility] MCH (RBC) [Entitic mass] 33.2 pg 26.0 - 34.0 pg [facility] MCHC (RBC) [Mass/Vol] 33.7 % 30.5 - 36.0 % [facility] MCV (RBC) [Entitic vol] 98.4 fL 77.0 - 99.0 fL [facility] Monocytes (Bld) [#/Vol] 0.7 10*3/uL 0.0 - 0.9 10*3/uL [facility] Monocytes/100 WBC (Bld) 8.5 % 5.0 - 13.0 % [facility] Neutrophils (Bld) [#/Vol] 4.9 10*3/uL 1.8 - 7.5 10*3/uL [facility] Neutrophils/100 WBC (Bld) 59.3 % 38.0 - 82.0 % [facility] Nucleated RBC/100 WBC (Bld) [Ratio] 0 % [facility] Platelet mean volume (Bld) [Entitic vol] 8.9 fL Low 9.0 - 12.7 fL [facility] Platelets (Bld) [#/Vol] 291 10*3/uL 140 - 440 10*3/uL [facility] RBC (Bld) [#/Vol] 4.28 10*6/uL Low 4.40 - 5.9 0 10*6/uL [facility] WBC (Bld) [#/Vol] 8.2 10*3/uL 3.6 - 10.7 10*3/uL [facility] CBC WITH AUTO DIFFERENTIALon 08-20-2024 Basophils (Bld) [#/Vol] 0.1 10*3/uL Normal 0.0-0.2 [facility] Comment on above: Performed By: #### L [id number] ####Software Designer: NICOLE BOWERS ([phone])[facility])[address] [place] [address] Basophils/100 WBC (Bld) 0.7 % Normal 0.0-2.0 [facility] Comment on above: Performed By: #### L [id number] ####Software Designer: NICOLE BOWERS ([id number])[facility])[address] [place] [address] Eosinophils (Bld) [#/Vol] 0.1 10*3/uL Normal 0.0-0.5 [facility] Comment on above: Performed By: #### L [id number] ####Software Designer: NICOLE BOWERS ([id number])[facility])[address] [place] [address] Eosinophils/100 WBC (Bld) 1.2 % Normal 0.0-6.0 [facility] Comment on above: Performed By: #### L [id number] ####Software Designer: NICOLE BOWERS ([id number])[facility])[address] [place] [address] Erythrocyte distribution width (RBC) [Ratio] 12.4 % Normal 11.5-15.0 [facility] Comment on above: Performed By: #### L [id number] ####Software Designer: NICOLE [id number])[facility])[address] [place] [address] Hematocrit (Bld) [Volume fraction] 42.1 % Normal 40.0-52.0 [facility] Comment on above: Performed By: #### L [id number] ####Software Designer: NICOLE BOWERS ([id number])[facility])[address] [place] [address] Hemoglobin (Bld) [Mass/Vol] 14.2 g/dL Normal 13.0-18.0 [facility] Comment on above: Performed By: #### L [id number] ####Software Designer: NICOLE BOWERS ([id number])[facility])[address] [place] [address] IMMATURE GRANS % 0.4 % Normal 0.0-2.0 [facility] Comment on above: Performed By: #### L [id number] ####Software Designer: NICOLE BOWERS ([id number])[facility])[address] [place] [address] IMMATURE GRANS ABSOLUTE 0.0 10*3/uL Normal <0.1 [facility] Comment on above: Performed By: #### L [id number] ####Software Designer: NICOLE BOWERS ([id number])[facility])[address] [place] [address] Lymphocytes (Bld) [#/Vol] 2.5 10*3/uL Normal 1.0-4.3 [facility] Comment on above: Performed By: #### L [id number] ####Software Designer: NICOLE BOWERS ([id number])[facility])[address] [place] [address] Lymphocytes/100 WBC (Bld) 29.9 % Normal 15.0-45.0 [facility] Comment on above: Performed By: #### L [id number] ####Software Designer: NICOLE BOWERS ([id number])[facility])[address] [place] [address] MCH (RBC) [Entitic mass] 33.2 pg Normal 26.0-34.0 [facility] Comment on above: Performed By: #### L [id number] ####Software Designer: NICOLE BOWERS ([id number])[facility])[address] [place] [address] MCHC 33.7 % Normal 30.5-36.0 [facility] Comment on above: Performed By: #### L [id number] ####Software Designer: NICOLE BOWERS ([id number])[facility])[address] [place] [address] MCV (RBC) [Entitic vol] 98.4 fL Normal 77.0-99.0 [facility] Comment on above: Performed By: #### L [id number] ####Software Designer: NICOLE BOWERS ([id number])[facility])[address] [place] [address] Monocytes (Bld) [#/Vol] 0.7 10*3/uL Normal 0.0-0.9 [facility] Comment on above: Performed By: #### L [id number] ####Software Designer: NICOLE BOWERS ([id number])[facility])[address] [place] [address] Monocytes/100 WBC (Bld) 8.5 % Normal 5.0-13.0 [facility] Comment on above: Performed By: #### L [id number] ####Software Designer: NICOLE BOWERS ([id number])[facility])[address] [place] [address] NEUTROPHILS ABSOLUTE 4.9 10*3/uL Normal 1.8-7.5 [facility] Comment on above: Performed By: #### L [id number] ####Software Designer: NICOLE BOWERS ([phone])[facility])[address] [place] [address] Neutrophils/100 WBC (Bld) 59.3 % Normal 38.0-82.0 [facility] Comment on above: Performed By: #### L [id number] ####Software Designer: NICOLE BOWERS ([id number])[facility])[address] [place] [address] NRBC 0.0 /100 WBCs Normal 0.0-2.0 [facility] Comment on above: Performed By: #### L [id number] ####Software Designer: NICOLE BOWERS ([id number])[facility] ([facility])[address] [place] [address] Platelet mean volume (Bld) [Entitic vol] 8.9 fL Low 9.0-12.7 [facility] Comment on above: Performed By: #### L [id number] ####Software Designer: NICOLE BOWERS ([id number])[facility] ([facility])[address] [place] [address] Platelets (Bld) [#/Vol] 291 10*3/uL Normal 140-440 [facility] Comment on above: Performed By: #### L [id number] ####Software Designer: NICOLE BOWERS ([id number])[facility] ([facility])[address] [place] [address] RBC (Bld) [#/Vol] 4.28 10*6/uL Low 4.40-5.90 [facility] Comment on above: Performed By: #### L [id number] ####Software Designer: NICOLE BOWERS ([id number])[facility] ([facility])[address] [place] [address] WBC (Bld) [#/Vol] 8.2 10*3/uL Normal 3.6-10.7 [facility] Comment on above: Performed By: #### L [id number] ####Software Designer: NICOLE BOWERS ([id number])[facility])[address] [place] [address] COMPREHENSIVE METABOLIC PANE Ming 08-20-2024 Albumin [Mass/Vol] 2.9 g/dL Low 3.5-5.0 [facility] Comment on above: Performed By: #### L [id number], [id number] ####Software Designer: NICOLE BOWERS ([id number])[facility] ([facility])[address] [place] [address] [place] ALP [Catalytic activity/Vol] 198 U/L High 40-150 [facility] Comment on above: Performed By: #### L AB103, LAB17 ####Software Designer: NICOLE BOWERS ([id number])[facility] ([facility])[address] [place] [address] [place] ALT [Catalytic activity/Vol] 53 U/L High <40 [facility] Comment on above: Performed By: #### L 103, LAB17 ####Software Designer: NICOLE BOWERS ([id number])[facility] ([facility])[address] [place] [address] Anion gap [Moles/Vol] 9 mmol/L Normal 3-13 [facility] Comment on above: Performed By: #### Pedro ECHEVERRIA, LAB17 ####Software Designer: NICOLE BOWERS ([id number])[facility] ([facility])[address] [place] [address] [place] AST [Catalytic activity/Vol] 33 U/L Normal <34 [facility] Comment on above: Performed By: #### L JACKI, LAB17 ####Software Designer: NICOLE BOWERS ([id number])[facility] ([facility])[address] [place] [address] [place] Bilirubin [Mass/Vol] 1.6 mg/dL High <1.2 [facility] Comment on above: Performed By: #### L AB103, LAB17 ####Software Designer: NICOLE BOWERS ([id number])[facility] ([facility])[address] [place] [address] [place] Calcium [Mass/Vol] 7.6 mg/dL Low 8.4-10.2 [facility] Comment on above: Performed By: #### L AB103, LAB17 ####Software Designer: INCOLE BOWERS ([id number])[facility] ([facility])[address] [place] [address] [place] Chloride [Moles/Vol] 101 mmol/L Normal 98-107 [facility] Comment on above: Performed By: #### L 103, LAB17 ####Software Designer: NICOLE BOWERS ([id number])[facility])[address] [place] [address] CO2 [Moles/Vol] 28 mmol/L Normal 22-29 [facility] Comment on above: Performed By: #### L 103, LAB17 ####Software Designer: NICOLE BOWERS ([id number])[facility])[address] [place] [address] Creatinine [Mass/Vol] 1.31 mg/dL High 0.72-1.25 [facility] Comment on above: Performed By: #### L 103, LAB17 ####Software Designer: NICOLE BOWERS ([phone])[facility])[address] [place] [address] GLOMERULAR FILTRATION RATE ML/MIN/1.73 SQ M.PREDICTED 68.0 mL/min/1.73m*2 Normal >60.0 [facility] Comment on above: Result Comment: Calc ulation based on the Chronic Kidney Disease Epidemiology Collaboration (CKD-EPI) equation refit without adjustment for race Performed By: #### L JACKI, LAB17 ####Software Designer: NICOLE BOWERS ([id number])[facility])[address] [place] [address] Glucose [Mass/Vol] 124 mg/dL High 74-100 [facility] Comment on above: Performed By: #### L AB103, LAB17 ####Software Designer: NICOLE BOWERS ([id number])[facility])[address] [place] [address] Potassium [Moles/Vol] 3.3 mmol/L Low 3.5-5.1 [facility] Comment on above: Result Comment: [facility] potassium values may be up to 0.5 mmol/L lower than serum values. Performed By: #### L AB103, LAB17 ####Software Designer: NICOLE [id number])[facility] [place] [address] Protein [Mass/Vol] 6.0 g/dL Low 6.4-8.3 [facility] Comment on above: Performed By: #### L AB103, LAB17 ####Software Designer: NICOLE BOWERS ([id number])[facility] ([facility])[address] [place] [address] Sodium [Moles/Vol] 138 mmol/L Normal 136-145 [facility] Comment on above: Performed By: #### L AB103, LAB17 ####Software Designer: NICOLE BOWERS ([id number])[facility] ([facility])[address] [place] [address] Urea nitrogen [Mass/Vol] 33 mg/dL High 02-17 [facility] Comment on above: Performed By: #### L AB103, LAB17 ####Software Designer: NICOLE BOWERS ([id number])[facility] ([facility])[address] [place] [address] Comprehensive metabolic 1998 panelon 08-20-2024 Albumin [Mass/Vol] 2.9 g/dL Low 3.5 - 5.0 g/dL [facility] ALP [Catalytic activity/Vol] 198 U/L High 40 - 150 U/L [facility] ALT [Catalytic activity/Vol] 53 U/L High NINF - 40 U/L [facility] Anion gap [Moles/Vol] 9 mmol/L 3 - 13 mmol/L [facility] AST [Catalytic activity/Vol] 33 U/L NINF - 34 U/L [facility] Bilirubin [Mass/Vol] 1.6 mg/dL High NINF - 1.2 mg/dL [facility] Calcium [Mass/Vol] 7.6 mg/dL Low 8.4 - 10. 2 mg/dL [facility] Chloride [Moles/Vol] 101 mmol/L 98 - 10 7 mmol/L [facility] CO2 [Moles/Vol] 28 mmol/L 22 - 29 mmol/L [facility] Creatinine [Mass/Vol] 1.31 mg/dL High 0.72 - 1.25 mg/dL [facility] GFR/1.73 sq M.predicted (S/P/Bld) [Vol rate/Area] 68 mL/min - PINF [facility] Glucose [Mass/Vol] 124 mg/dL High 74 - 100 mg/dL [facility] Interpretation and review of laboratory results Abnormal [facility] Potassium [Moles/Vol] 3.3 mmol/L Low 3.5 - 5.1 mmol/L [facility] Protein [Mass/Vol] 6 g/dL Low 6.4 - 8.3 g/dL [facility] Sodium [Moles/Vol] 138 mmol/L 136 - 145 mmol/L [facility] Urea nitrogen [Mass/Vol] 33 mg/dL High 8 - 21 mg/dL [facility] - Chemistry and C hemistry - challengeon 08-20-2024 Magnesium [Mass/Vol] 1.6 mg/dL 1.6 - 2 .6 mg/dL [facility] MAGNESIUMon 08-20-2024 Magnesium [Mass/Vol] 1.6 mg/dL Normal 1.6-2.6 [facility] Comment on above: Result Comment: ALEJANDRO Aleman COMMENTS:Higher values can be expected in females during menses. Performed By: #### L AB103, LAB17 ####Software Designer: NICOLE BOWERS ([id number])[address] Magnesium [Mass/Vol]on 08-20 Interpretation and review of laboratory results Normal [facility] Nursing Noteon 08-20-2024 Nursing Note . IV heplock removed . Discharge instructions reviewed with patient. All questions answered. Pt discharged to home with all belongings. Normal [facility] Nursing Note Pt adamant on leavin g right now. Pt does not want meds to beds Patient would like medications sent to the [facility] in [place] on [facility] Dr. Aguilar notified via secure chat. Normal [facility] Nursing Note Dr. Briones notified regarding pt refusing meds and lab draw. Normal [facility] Nursing Note Dr. Aguilar notified tele order . Okay to have patient off tele. Normal [facility] Progress Noteon 08-20-2024 Progress Note Normal [facility] Progress Note Normal [facility] 30on 08-19-2024 30 Normal [facility] 30 Normal [facility] [id number] 08-19-2024 [id number] When ok with Cardiology will be discharged. Refused to go to [facility] last night. We do not accept his insurance. Pt is aware. .s Normal [facility] BASIC METABOLIC PANELon 08-01 Anion gap [Moles/Vol] 12 mmol/L Normal 3-13 [facility] Comment on above: Performed By: #### L AB15 ####Software Designer: NICOLE BOWERS ([id number])[facility])[address] [place] [address] Calcium [Mass/Vol] 7.6 mg/dL Low 8.4-10.2 [facility] Comment on above: Performed By: #### L AB15 ####Software Designer: NICOLE BOWERS ([id number])[facility] ([facility])[address] [place] [address] [place] Chloride [Moles/Vol] 98 mmol/L Normal 98-107 [facility] Comment on above: Performed By: #### L AB15 ####Software Designer: NICOLE BOWERS ([id number])[facility] ([facility])[address] [place] [address] [place] CO2 [Moles/Vol] 30 mmol/L High 22-29 [facility] Comment on above: Performed By: #### L AB15 ####Software Designer: NICOLE BOWERS ([id number])[facility] ([facility])[address] [place] [address] [place] Creatinine [Mass/Vol] 1.50 mg/dL High 0.72-1.25 [facility] Comment on above: Performed By: #### L AB15 ####Software Designer: NICOLE BOWERS ([id number])[facility] ([facility])[address] [place] [address] [place] GLOMERULAR FILTRATION RATE ML/MIN/1.73 SQ M.PREDICTED 57.8 mL/min/1.73m*2 Low >60.0 [facility] Comment on above: Result Comment: Calc ulation based on the Chronic Kidney Disease Epidemiology Collaboration (CKD-EPI) equation refit without adjustment for race Performed By: #### L AB15 ####Software Designer: NICOLE BOWERS ([id number])[facility])[address] [place] [address] Glucose [Mass/Vol] 136 mg/dL High 74-100 [facility] Comment on above: Performed By: #### L AB15 ####Software Designer: NICOLE BOWERS ([id number])[facility])[address] [place] [address] Potassium [Moles/Vol] 3.3 mmol/L Low 3.5-5.1 [facility] Comment on above: Result Comment: [facility] potassium values may be up to 0.5 mmol/L lower than serum values. Performed By: #### L AB15 ####Software Designer: NICOLE BOWERS ([id number])[facility] ([facility])[address] [place] [address] Sodium [Moles/Vol] 140 mmol/L Normal 136-145 [facility] Comment on above: Performed By: #### L AB15 ####Software Designer: NICOLE BOWERS ([id number])[facility])[address] [place] [address] Urea nitrogen [Mass/Vol] 31 mg/dL High 8-21 [facility] Comment on above: Performed By: #### L AB15 ####Software Designer: NICOLE BOWERS ([id number])[facility])[address] [place] [address] Basic metabolic 1998 panelon 08-19-2024 Anion gap [Moles/Vol] 12 mmol/L 3 - 13 mmol/L [facility] Calcium [Mass/Vol] 7.6 mg/dL Low 8.4 - 10. 2 mg/dL [facility] Chloride [Moles/Vol] 98 mmol/L 98 - 10 7 mmol/L [facility] CO2 [Moles/Vol] 30 mmol/L High 22 - 29 mmol/L [facility] Creatinine [Mass/Vol] 1.5 mg/dL High 0.72 - 1.25 mg/dL [facility] GFR/1.73 sq M.predicted (S/P/Bld) [Vol rate/Area] 57.8 mL/min Low - PINF [facility] Glucose [Mass/Vol] 136 mg/dL High 74 - 100 mg/dL [facility] Interpretation and review of laboratory results Abnormal [facility] Potassium [Moles/Vol] 3.3 mmol/L Low 3.5 - 5.1 mmol/L [facility] Sodium [Moles/Vol] 140 mmol/L 136 - 145 mmol/L [facility] Urea nitrogen [Mass/Vol] 31 mg/dL High 8 - 21 mg/dL [facility] CBC W Auto Differential pane l (Bld)on 08-19-2024 Basophils (Bld) [#/Vol] 0 10*3/uL 0.0 - 0.2 10*3/uL [facility] Basophils/100 WBC (Bld) 0.5 % 0.0 - 2.0 % [facility] Eosinophils (Bld) [#/Vol] 0.1 10*3/uL 0.0 - 0.5 10*3/uL [facility] Eosinophils/100 WBC (Bld) 0.8 % 0.0 - 6.0 % [facility] Erythrocyte distribution width (RBC) [Ratio] 12.7 % 11.5 - 15.0 % [facility] Hematocrit (Bld) [Volume fraction] 42.1 % 40.0 - 52.0 % [facility] Hemoglobin (Bld) [Mass/Vol] 14.1 g/dL 13.0 - 18.0 g/dL [facility] Immature granulocytes (Bld) [#/Vol] 0 10*3/uL NINF - 0.1 10*3/uL [facility] Immature granulocytes/100 WBC (Bld) 0.4 % 0.0 - 2.0 % [facility] Interpretation and review of laboratory results Abnormal [facility] Lymphocytes (Bld) [#/Vol] 2 10*3/uL 1.0 - 4.3 10*3/uL [facility] Lymphocytes/100 WBC (Bld) 25.9 % 15.0 - 45.0 % [facility] MCH (RBC) [Entitic mass] 33.2 pg 26.0 - 34.0 pg [facility] MCHC (RBC) [Mass/Vol] 33.5 % 30.5 - 36.0 % [facility] [employer] MCV (RBC) [Entitic vol] 99.1 fL High 77.0 - 99.0 fL [facility] Monocytes (Bld) [#/Vol] 0.5 10*3/uL 0.0 - 0.9 10*3/uL [facility] Monocytes/100 WBC (Bld) 7 % 5.0 - 13.0 % [facility] Neutrophils (Bld) [#/Vol] 4.9 10*3/uL 1.8 - 7.5 10*3/uL [facility] Neutrophils/100 WBC (Bld) 65.4 % 38.0 - 82.0 % [facility] Nucleated RBC/100 WBC (Bld) [Ratio] 0 % [facility] Platelet mean volume (Bld) [Entitic vol] 9.2 fL 9.0 - 12.7 fL [facility] Platelets (Bld) [#/Vol] 280 10*3/uL 140 - 440 10*3/uL [facility] RBC (Bld) [#/Vol] 4.25 10*6/uL Low 4.40 - 5.9 0 10*6/uL [facility] WBC (Bld) [#/Vol] 7.5 10*3/uL 3.6 - 10.7 10*3/uL [facility] CBC WITH AUTO DIFFERENTIALon 08-19-2024 Basophils (Bld) [#/Vol] 0.0 10*3/uL Normal 0.0-0.2 [facility] Comment on above: Performed By: #### L [id number] ####Software Designer: NICOLE BOWERS ([id number])[address] Basophils/100 WBC (Bld) 0.5 % Normal 0.0-2.0 [facility] Comment on above: Performed By: #### L [id number] ####Software Designer: NICOLE BOWERS ([id number])[facility] ([facility])[address] [place] [address] Eosinophils (Bld) [#/Vol] 0.1 10*3/uL Normal 0.0-0.5 [facility] Comment on above: Performed By: #### L [id number] ####Software Designer: NICOLE BOWERS ([id number])[facility])[address] [place] [address] Eosinophils/100 WBC (Bld) 0.8 % Normal 0.0-6.0 [facility] Comment on above: Performed By: #### L [id number] ####Software Designer: NICOLE BOWERS ([id number])[facility])[address] [place] [address] Erythrocyte distribution width (RBC) [Ratio] 12.7 % Normal 11.5-15.0 [facility] Comment on above: Performed By: #### L [id number] ####Software Designer: NICOLE BOWERS ([id number])[address] Hematocrit (Bld) [Volume fraction] 42.1 % Normal 40.0-52.0 [facility] Comment on above: Performed By: #### L [id number] ####Software Designer: NICOLE BOWERS ([id number])[address] Hemoglobin (Bld) [Mass/Vol] 14.1 g/dL Normal 13.0-18.0 [facility] Comment on above: Performed By: #### L [id number] ####Software Designer: NICOLE BOWERS ([id number])[facility])[address] [place] [address] IMMATURE GRANS % 0.4 % Normal 0.0-2.0 [facility] Comment on above: Performed By: #### L [id number] ####Software Designer: NICOLE BOWERS ([id number])[facility])[address] [place] [address] IMMATURE GRANS ABSOLUTE 0.0 10*3/uL Normal <0.1 [facility] Comment on above: Performed By: #### L [id number] ####Software Designer: NICOLE BOWERS ([id number])[facility])[address] [place] [address] Lymphocytes (Bld) [#/Vol] 2.0 10*3/uL Normal 1.0-4.3 [facility] Comment on above: Performed By: #### L [id number] ####Software Designer: NICOLE BOWERS ([id number])[facility])[address] [place] [address] Lymphocytes/100 WBC (Bld) 25.9 % Normal 15.0-45.0 [facility] Comment on above: Performed By: #### L [id number] ####Software Designer: NICOLE BOWERS ([id number])[address] MCH (RBC) [Entitic mass] 33.2 pg Normal 26.0-34.0 [facility] Comment on above: Performed By: #### L [id number] ####Software Designer: NICOLE BOWERS ([id number])[facility])[address] [place] [address] MCHC 33.5 % Normal 30.5-36.0 [facility] Comment on above: Performed By: #### L [id number] ####Software Designer: NICOLE BOWERS ([id number])[facility])[address] [place] [address] MCV (RBC) [Entitic vol] 99.1 fL High 77.0-99.0 [facility] Comment on above: Performed By: #### L [id number] ####Software Designer: NICOLE BOWERS ([id number])[facility])[address] [place] [address] Monocytes (Bld) [#/Vol] 0.5 10*3/uL Normal 0.0-0.9 [facility] Comment on above: Performed By: #### L [id number] ####Software Designer: NICOLE BOWERS ([id number])[facility] ([facility])[address] [place] [address] Monocytes/100 WBC (Bld) 7.0 % Normal 5.0-13.0 [facility] Comment on above: Performed By: #### L [id number] ####Software Designer: NICOLE BOWERS ([id number])[facility] ([facility])[address] [place] [address] NEUTROPHILS ABSOLUTE 4.9 10*3/uL Normal 1.8-7.5 [facility] Comment on above: Performed By: #### L [id number] ####Software Designer: NICOLE BOWERS ([id number])[facility] ([facility])[address] [place] [address] Neutrophils/100 WBC (Bld) 65.4 % Normal 38.0-82.0 [facility] Comment on above: Performed By: #### L [id number] ####Software Designer: NICOLE BOWERS ([id number])[facility] ([facility])[address] [place] [address] NRBC 0.0 /100 WBCs Normal 0.0-2.0 [facility] Comment on above: Performed By: #### L [id number] ####Software Designer: NICOLE BOWERS ([id number])[facility] ([facility])[address] [place] [address] Platelet mean volume (Bld) [Entitic vol] 9.2 fL Normal 9.0-12.7 [facility] Comment on above: Performed By: #### L [id number] ####Software Designer: NICOLE BOWERS ([id number])[facility] ([facility])[address] [place] [address] [place] Platelets (Bld) [#/Vol] 280 10*3/uL Normal 140-440 [facility] Comment on above: Performed By: #### L [id number] ####Software Designer: NICOLE BOWERS ([id number])[facility] ([facility])[address] [place] [address] [place] RBC (Bld) [#/Vol] 4.25 10*6/uL Low 4.40-5.90 [facility] Comment on above: Performed By: #### L [id number] ####Software Designer: NICOLE BOWERS ([id number])[facility])[address] [place] [address] WBC (Bld) [#/Vol] 7.5 10*3/uL Normal 3.6-10.7 [facility] Comment on above: Performed By: #### L [id number] ####Software Designer: NICOLE BOWERS ([id number])[facility])[address] [place] [address] COMPREHENSIVE METABOLIC PANE Ming 08-19-2024 Albumin [Mass/Vol] 3.0 g/dL Low 3.5-5.0 [facility] Comment on above: Performed By: #### L AB17, [id number] ####Software Designer: NICOLE BOWERS ([id number])[facility] ([facility])[address] [place] [address] ALP [Catalytic activity/Vol] 191 U/L High 40-150 [facility] Comment on above: Performed By: #### L AB17, [id number] ####Software Designer: NICOLE BOWERS ([id number])[facility])[address] [place] [address] ALT [Catalytic activity/Vol] 54 U/L High <40 [facility] Comment on above: Performed By: #### L AB17, [id number] ####Software Designer: NICOLE BOWERS ([id number])[facility])[address] [place] [address] Anion gap [Moles/Vol] 12 mmol/L Normal 3-13 [facility] Comment on above: Performed By: #### L AB17, [id number] ####Software Designer: NICOLE BOWERS ([id number])[facility])[address] [place] [address] AST [Catalytic activity/Vol] 33 U/L Normal <34 [facility] Comment on above: Performed By: #### L AB17, [id number] ####Software Designer: NICOLE BOWERS ([id number])[facility] ([facility])[address] [place] [address] Bilirubin [Mass/Vol] 1.6 mg/dL High <1.2 [facility] Comment on above: Performed By: #### L AB17, [id number] ####Software Designer: NICOLE BOWERS ([id number])[facility] ([facility])[address] [place] [address] Calcium [Mass/Vol] 7.9 mg/dL Low 8.4-10.2 [facility] Comment on above: Performed By: #### L AB17, [id number] ####Software Designer: NICOLE BOWERS ([id number])[facility] ([facility])[address] [place] [address] Chloride [Moles/Vol] 96 mmol/L Low 98-107 [facility] Comment on above: Performed By: #### L AB17, [id number] ####Software Designer: NICOLE BOWERS ([id number])[facility] ([facility])[address] [place] [address] CO2 [Moles/Vol] 28 mmol/L Normal 22-29 [facility] Comment on above: Performed By: #### L AB17, [id number] ####Software Designer: NICOLE BOWERS ([id number])[facility])[address] [place] [address] Creatinine [Mass/Vol] 1.64 mg/dL High 0.72-1.25 [facility] Comment on above: Performed By: #### L AB17, [id number] ####Software Designer: NICOLE BOWERS ([id number])[facility])[address] [place] [address] GLOMERULAR FILTRATION RATE ML/MIN/1.73 SQ M.PREDICTED 51.9 mL/min/1.73m*2 Low >60.0 [facility] Comment on above: Result Comment: Calc ulation based on the Chronic Kidney Disease Epidemiology Collaboration (CKD-EPI) equation refit without adjustment for race Performed By: #### L AB17, [id number] ####Software Designer: NICOLE BOWERS ([id number])[facility])[address] [place] [address] Glucose [Mass/Vol] 150 mg/dL High 74-100 [facility] Comment on above: Performed By: #### L AB17, [id number] ####Software Designer: NICOLE BOWERS ([id number])[facility])[address] [place] [address] Potassium [Moles/Vol] 2.9 mmol/L Low 3.5-5.1 [facility] Comment on above: Result Comment: [facility] potassium values may be up to 0.5 mmol/L lower than serum values. Performed By: #### L AB17, [id number] ####Software Designer: NICOLE BOWERS ([id number])[facility])[address] [place] [address] Protein [Mass/Vol] 6.2 g/dL Low 6.4-8.3 [facility] Comment on above: Performed By: #### L AB17, [id number] ####Software Designer: NICOLE BOWERS ([id number])[facility])[address] [place] [address] Sodium [Moles/Vol] 136 mmol/L Normal 136-145 [facility] Comment on above: Performed By: #### L [id number], [id number] ####Software Designer: NICOLE BOWERS ([id number])[facility])[address] [place] [address] [place] Urea nitrogen [Mass/Vol] 33 mg/dL High 8-21 [facility] Comment on above: Performed By: #### L AB17, [id number] ####Software Designer: NICOLE BOWERS ([id number])[facility])[address] [place] [address] Comprehensive metabolic 1998 panelOrdered By: Dariel Staley on 08-19-2024 Albumin [Mass/Vol] 3 g/dL Low 3.5 - 5.0 g/dL [facility] ALP [Catalytic activity/Vol] 191 U/L High 40 - 150 U/L [facility] ALT [Catalytic activity/Vol] 54 U/L High NINF - 40 U/L [facility] Anion gap [Moles/Vol] 12 mmol/L 3 - 13 mmol/L [facility] AST [Catalytic activity/Vol] 33 U/L NINF - 34 U/L [facility] Bilirubin [Mass/Vol] 1.6 mg/dL High NINF - 1.2 mg/dL [facility] Calcium [Mass/Vol] 7.9 mg/dL Low 8.4 - 10. 2 mg/dL [facility] Chloride [Moles/Vol] 96 mmol/L Low 98 - 10 7 mmol/L [facility] CO2 [Moles/Vol] 28 mmol/L 22 - 29 mmol/L [facility] Creatinine [Mass/Vol] 1.64 mg/dL High 0.72 - 1.25 mg/dL [facility] GFR/1.73 sq M.predicted (S/P/Bld) [Vol rate/Area] 51.9 mL/min Low - PINF [facility] Glucose [Mass/Vol] 150 mg/dL High 74 - 100 mg/dL [facility] Interpretation and review of laboratory results Abnormal [facility] Potassium [Moles/Vol] 2.9 mmol/L Low 3.5 - 5.1 mmol/L [facility] Protein [Mass/Vol] 6.2 g/dL Low 6.4 - 8.3 g/dL [facility] Sodium [Moles/Vol] 136 mmol/L 136 - 145 mmol/L [facility] Urea nitrogen [Mass/Vol] 33 mg/dL High 8 - 21 mg/dL [facility] - Chemistry and C hemistry - challengeon 08-19-2024 Magnesium [Mass/Vol] 1.4 mg/dL Low 1.6 - 2 .6 mg/dL [facility] MAGNESIUMon 08-19-2024 Magnesium [Mass/Vol] 1.4 mg/dL Low 1.6-2.6 [facility] Comment on above: Result Comment: ORDE R COMMENTS:Higher values can be expected in females during menses. Performed By: #### L AB17, [id number] ####Software Designer: NICOLE BOWERS ([id number])[facility] ([facility])[address] [place] [address] Magnesium [Mass/Vol]on 08-19 Interpretation and review of laboratory results Abnormal [facility] Progress Noteon 08-19-2024 Progress [facility] Progress Note Normal [facility] Progress Note Normal [facility] 30on 08-18-2024 30 Normal [facility] [id number] 08-18-2024 [id number] Normal [facility] [id number] Per RN [facility] calls daily, no bed available. Nephrology and Cardiology following. Needs electrolytes replaced. Not willing to take all of it. Plan is home when stable, no needs. . Normal [facility] CALCIUM, IONIZEDon CALCIUM IONIZED 3.30 mg/dL Low 4.30-5.20 [facility] Comment on above: Performed By: #### L [id number] ####Software Designer: NICOLE BOWERS ([id number])[facility] ([facility])[address] [place] [address] PH, IONIZED CALCIUM 7.60 High 7.31-7.46 [facility] Comment on above: Performed By: #### L [id number] ####Software Designer: NICOLE BOWERS ([id number])[facility] ([facility])[address] [place] [address] CBC W Auto Differential pane l (Bld)on 08-18-2024 Basophils (Bld) [#/Vol] 0 10*3/uL 0.0 - 0.2 10*3/uL [facility] Basophils/100 WBC (Bld) 0.5 % 0.0 - 2.0 % [facility] Eosinophils (Bld) [#/Vol] 0.1 10*3/uL 0.0 - 0.5 10*3/uL [facility] Eosinophils/100 WBC (Bld) 0.9 % 0.0 - 6.0 % [facility] Erythrocyte distribution width (RBC) [Ratio] 12.8 % 11.5 - 15.0 % [facility] Hematocrit (Bld) [Volume fraction] 44.5 % 40.0 - 52.0 % [facility] Hemoglobin (Bld) [Mass/Vol] 14.7 g/dL 13.0 - 18.0 g/dL [facility] Immature granulocytes (Bld) [#/Vol] 0 10*3/uL NINF - 0.1 10*3/uL [facility] Immature granulocytes/100 WBC (Bld) 0.2 % 0.0 - 2.0 % [facility] Interpretation and review of laboratory results Abnormal [facility] Lymphocytes (Bld) [#/Vol] 2.8 10*3/uL 1.0 - 4.3 10*3/uL [facility] Lymphocytes/100 WBC (Bld) 32.6 % 15.0 - 45.0 % [facility] MCH (RBC) [Entitic mass] 33.6 pg 26.0 - 34.0 pg [facility] MCHC (RBC) [Mass/Vol] 33 % 30.5 - 36.0 % [facility] MCV (RBC) [Entitic vol] 101.8 fL High 77.0 - 99.0 fL [facility] Monocytes (Bld) [#/Vol] 0.7 10*3/uL 0.0 - 0.9 10*3/uL [facility] Monocytes/100 WBC (Bld) 7.8 % 5.0 - 13.0 % [facility] Neutrophils (Bld) [#/Vol] 4.9 10*3/uL 1.8 - 7.5 10*3/uL [facility] Neutrophils/100 WBC (Bld) 58 % 38.0 - 82.0 % [facility] Nucleated RBC/100 WBC (Bld) [Ratio] 0 % [facility] Platelet mean volume (Bld) [Entitic vol] 9.6 fL 9.0 - 12.7 fL [facility] Platelets (Bld) [#/Vol] 288 10*3/uL 140 - 440 10*3/uL [facility] RBC (Bld) [#/Vol] 4.37 10*6/uL Low 4.40 - 5.9 0 10*6/uL [facility] WBC (Bld) [#/Vol] 8.4 10*3/uL 3.6 - 10.7 10*3/uL [facility] CBC WITH AUTO DIFFERENTIALon 08-18-2024 Basophils (Bld) [#/Vol] 0.0 10*3/uL Normal 0.0-0.2 [facility] Comment on above: Performed By: #### L [id number] ####Software Designer: NICOLE BOWERS ([id number])[facility])[address] [place] [address] Basophils/100 WBC (Bld) 0.5 % Normal 0.0-2.0 [facility] Comment on above: Performed By: #### L [id number] ####Software Designer: NICOLE BOWERS ([id number])[facility])[address] [place] [address] Eosinophils (Bld) [#/Vol] 0.1 10*3/uL Normal 0.0-0.5 [facility] Comment on above: Performed By: #### L [id number] ####Software Designer: NICOLE BOWERS ([id number])[facility] ([facility])[address] [place] [address] Eosinophils/100 WBC (Bld) 0.9 % Normal 0.0-6.0 [facility] Comment on above: Performed By: #### L [id number] ####Software Designer: NICOLE BOWERS ([id number])[facility])[address] [place] [address] Erythrocyte distribution width (RBC) [Ratio] 12.8 % Normal 11.5-15.0 [facility] Comment on above: Performed By: #### L [id number] ####Software Designer: NICOLE BOWERS ([id number])[facility])[address] [place] [address] Hematocrit (Bld) [Volume fraction] 44.5 % Normal 40.0-52.0 [facility] Comment on above: Performed By: #### L [id number] ####Software Designer: NICOLE BOWERS ([id number])[facility])[address] [place] [address] Hemoglobin (Bld) [Mass/Vol] 14.7 g/dL Normal 13.0-18.0 [facility] Comment on above: Performed By: #### L [id number] ####Software Designer: NICOLE BOWERS ([id number])[facility])[address] [place] [address] IMMATURE GRANS % 0.2 % Normal 0.0-2.0 [facility] Comment on above: Performed By: #### L [id number] ####Software Designer: NICOLE BOWERS ([id number])[facility])[address] [place] [address] IMMATURE GRANS ABSOLUTE 0.0 10*3/uL Normal <0.1 [facility] Comment on above: Performed By: #### L [id number] ####Software Designer: NICOLE BOWERS ([id number])[facility])[address] [place] [address] Lymphocytes (Bld) [#/Vol] 2.8 10*3/uL Normal 1.0-4.3 [facility] Comment on above: Performed By: #### L [id number] ####Software Designer: NICOLE BOWERS ([id number])[facility])[address] [place] [address] Lymphocytes/100 WBC (Bld) 32.6 % Normal 15.0-45.0 [facility] Comment on above: Performed By: #### L [id number] ####Software Designer: NICOLE BOWERS ([id number])[facility])[address] [place] [address] MCH (RBC) [Entitic mass] 33.6 pg Normal 26.0-34.0 [facility] Comment on above: Performed By: #### L [id number] ####Software Designer: NICOLE BOWERS ([id number])[facility])[address] [place] [address] MCHC 33.0 % Normal 30.5-36.0 [facility] Comment on above: Performed By: #### L [id number] ####Software Designer: NICOLE BOWERS ([id number])[facility])[address] [place] [address] MCV (RBC) [Entitic vol] 101.8 fL High 77.0-99.0 [facility] Comment on above: Performed By: #### L [id number] ####Software Designer: NICOLE BOWERS ([id number])[facility])[address] [place] [address] Monocytes (Bld) [#/Vol] 0.7 10*3/uL Normal 0.0-0.9 [facility] Comment on above: Performed By: #### L [id number] ####Software Designer: NICOLE BOWERS ([id number])[facility])[address] [place] [address] Monocytes/100 WBC (Bld) 7.8 % Normal 5.0-13.0 [facility] Comment on above: Performed By: #### L [id number] ####Software Designer: NICOLE BOWERS ([id number])[facility])[address] [place] [address] NEUTROPHILS ABSOLUTE 4.9 10*3/uL Normal 1.8-7.5 [facility] Comment on above: Performed By: #### L [id number] ####Software Designer: NICOLE BOWERS ([id number])[facility])[address] [place] [address] Neutrophils/100 WBC (Bld) 58.0 % Normal 38.0-82.0 [facility] Comment on above: Performed By: #### L [id number] ####Software Designer: NICOLE BOWERS ([id number])[facility])[address] [place] [address] NRBC 0.0 /100 WBCs Normal 0.0-2.0 [facility] Comment on above: Performed By: #### L [id number] ####Software Designer: NICOLE BOWERS ([id number])[facility] ([facility])[address] [place] [address] Platelet mean volume (Bld) [Entitic vol] 9.6 fL Normal 9.0-12.7 [facility] Comment on above: Performed By: #### L [id number] ####Software Designer: NICOLE BOWERS ([id number])[facility] ([facility])[address] [place] [address] Platelets (Bld) [#/Vol] 288 10*3/uL Normal 140-440 [facility] Comment on above: Performed By: #### L [id number] ####Software Designer: NICOLE BOWERS ([id number])[facility] ([facility])[address] [place] [address] RBC (Bld) [#/Vol] 4.37 10*6/uL Low 4.40-5.90 [facility] Comment on above: Performed By: #### L [id number] ####Software Designer: NICOLE BOWERS ([id number])[facility] ([facility])[address] [place] [address] WBC (Bld) [#/Vol] 8.4 10*3/uL Normal 3.6-10.7 [facility] Comment on above: Performed By: #### L [id number] ####Software Designer: NICOLE BOWERS ([id number])[facility] ([facility])[address] [place] [address] COMPREHENSIVE METABOLIC PANE Ming 08-18-2024 Albumin [Mass/Vol] 3.0 g/dL Low 3.5-5.0 [facility] Comment on above: Performed By: #### L [id number], [id number] ####Software Designer: NICOLE BOWERS ([id number])[facility])[address] [place] [address] ALP [Catalytic activity/Vol] 195 U/L High 40-150 [facility] Comment on above: Performed By: #### L [id number], [id number] ####Software Designer: NICOLE BOWERS ([id number])[facility] [place] [address] [place] ALT [Catalytic activity/Vol] 56 U/L High <40 [facility] Comment on above: Performed By: #### L AB17, [id number] ####Software Designer: NICOLE BOWERS ([id number])[facility] ([facility])[address] Anion gap [Moles/Vol] 13 mmol/L Normal 3-13 [facility] Comment on above: Performed By: #### L AB17, [id number] ####Software Designer: NICOLE BOWERS ([id number])[facility] ([facility])[address] [place] [address] AST [Catalytic activity/Vol] 36 U/L High <34 [facility] Comment on above: Result Comment: TCPo tential interference from hemolysis Performed By: #### L AB17, [id number] ####Software Designer: NICOLE BOWERS ([id number])[facility] ([facility])[address] [place] [address] [place] Bilirubin [Mass/Vol] 1.6 mg/dL High <1.2 [facility] Comment on above: Performed By: #### L [id number], [id number] ####Software Designer: NICOLE BOWERS ([id number])[facility] ([facility])[address] [place] [address] Calcium [Mass/Vol] 7.8 mg/dL Low 8.4-10.2 [facility] Comment on above: Performed By: #### L AB17, [id number] ####Software Designer: NICOLE BOWERS ([id number])[facility] ([facility])[address] [place] [address] [place] Chloride [Moles/Vol] 99 mmol/L Normal 98-107 [facility] Comment on above: Performed By: #### L AB17, [id number] ####Software Designer: NICOLE BOWERS ([id number])[facility] ([facility])[address] [place] [address] [place] CO2 [Moles/Vol] 25 mmol/L Normal 22-29 [facility] Comment on above: Performed By: #### L AB17, [id number] ####Software Designer: NICOLE BOWERS ([id number])[facility])[address] [place] [address] Creatinine [Mass/Vol] 1.64 mg/dL High 0.72-1.25 [facility] Comment on above: Performed By: #### L AB17, [id number] ####Software Designer: NICOLE BOWERS ([id number])[facility])[address] [place] [address] GLOMERULAR FILTRATION RATE ML/MIN/1.73 SQ M.PREDICTED 51.9 mL/min/1.73m*2 Low >60.0 [facility] Comment on above: Result Comment: Calc ulation based on the Chronic Kidney Disease Epidemiology Collaboration (CKD-EPI) equation refit without adjustment for race Performed By: #### L 17, [id number] ####Software Designer: NICOLE BOWERS ([id number])[facility] ([facility])[address] [place] [address] [place] Glucose [Mass/Vol] 104 mg/dL High 74-100 [facility] Comment on above: Performed By: #### L AB17, [id number] ####Software Designer: NICOLE BOWERS ([id number])[facility])[address] [place] [address] [place] Potassium [Moles/Vol] 4.0 mmol/L Normal 3.5-5.1 [facility] Comment on above: Result Comment: [facility] potassium values may be up to 0.5 mmol/L lower than serum values. Performed By: #### L AB17, [id number] ####Software Designer: NICOLE BOWERS ([id number])[facility])[address] [place] [address] Protein [Mass/Vol] 6.4 g/dL Normal 6.4-8.3 [facility] Comment on above: Performed By: #### L AB17, [id number] ####Software Designer: NICOLE BOWERS ([id number])[facility] ([facility])[address] [place] [address] Sodium [Moles/Vol] 137 mmol/L Normal 136-145 [facility] Comment on above: Performed By: #### L AB17, [id number] ####Software Designer: NICOLE BOWERS ([id number])[facility] ([facility])[address] [place] [address] Urea nitrogen [Mass/Vol] 33 mg/dL High 8-21 [facility] Comment on above: Performed By: #### L AB17, [id number] ####Software Designer: NICOLE BOWERS ([id number])[facility] ([facility])[address] [place] [address] Calcium.ionized [Moles/Vol]o n 08-18-2024 Calcium.ionized (Bld) [Moles/Vol] 3.3 mg/dL Low 4.30 - 5.20 mg/dL [facility] Interpretation and review of laboratory results Abnormal [facility] PH, IONIZED CALCIUM 7.6 High 7.31 - 7.46 [facility] Comprehensive metabolic 1998 panelon 08-18-2024 Albumin [Mass/Vol] 3 g/dL Low 3.5 - 5.0 g/dL [facility] ALP [Catalytic activity/Vol] 195 U/L High 40 - 150 U/L [facility] ALT [Catalytic activity/Vol] 56 U/L High NINF - 40 U/L [facility] Anion gap [Moles/Vol] 13 mmol/L 3 - 13 mmol/L [facility] AST [Catalytic activity/Vol] 36 U/L High NINF - 34 U/L [facility] Bilirubin [Mass/Vol] 1.6 mg/dL High NINF - 1.2 mg/dL [facility] Calcium [Mass/Vol] 7.8 mg/dL Low 8.4 - 10. 2 mg/dL [facility] Chloride [Moles/Vol] 99 mmol/L 98 - 10 7 mmol/L [facility] CO2 [Moles/Vol] 25 mmol/L 22 - 29 mmol/L [facility] Creatinine [Mass/Vol] 1.64 mg/dL High 0.72 - 1.25 mg/dL [facility] GFR/1.73 sq M.predicted (S/P/Bld) [Vol rate/Area] 51.9 mL/min Low - PINF [facility] Glucose [Mass/Vol] 104 mg/dL High 74 - 100 mg/dL [facility] Interpretation and review of laboratory results Abnormal [facility] Potassium [Moles/Vol] 4 mmol/L 3.5 - 5.1 mmol/L [facility] Protein [Mass/Vol] 6.4 g/dL 6.4 - 8.3 g/dL [facility] Sodium [Moles/Vol] 137 mmol/L 136 - 145 mmol/L [facility] Urea nitrogen [Mass/Vol] 33 mg/dL High 8 - 21 mg/dL [facility] Laboratory - Chemistry and C hemistry - challengeon 08-18-2024 Magnesium [Mass/Vol] 1.7 mg/dL 1.6 - 2 .6 mg/dL [facility] MAGNESIUMon 08-18-2024 Magnesium [Mass/Vol] 1.7 mg/dL Normal 1.6-2.6 [facility] Comment on above: Result Comment: ALEJANDRO Aleman COMMENTS:Higher values can be expected in females during menses. Performed By: #### L AB17, [id number] ####Software Designer: NICOLE BOWERS ([id number])[address] Magnesium [Mass/Vol]on 08-18 Interpretation and review of laboratory results Normal [facility] No Panel Informationon 08-18 [facility] Nursing Noteon 08-18-2024 Nursing Note Normal [facility] Nursing Note Updated metro with patient vitals metro still does not have a bed metro will call when one is available Normal [facility] Nursing Note Patient refusing iv magnesium patient requesting shower ok per dr coppola for patient to take oral magnesium only and ok to shower Normal [facility] Progress Noteon 08-18-2024 Progress Note Normal [facility] Progress Note Normal [facility] Progress Note Normal [facility] 30on 08-17-2024 30 Normal [facility] 30 Normal [facility] 30 Normal [facility] [id number] 08-17-2024 [id number] Normal [facility] [id number] Normal [facility] CBC W Auto Differential pane l (Bld)on 08-17-2024 Basophils (Bld) [#/Vol] 0 10*3/uL 0.0 - 0.2 10*3/uL [facility] Basophils/100 WBC (Bld) 0.5 % 0.0 - 2.0 % [facility] Eosinophils (Bld) [#/Vol] 0.1 10*3/uL 0.0 - 0.5 10*3/uL [facility] Eosinophils/100 WBC (Bld) 1.2 % 0.0 - 6.0 % [facility] Erythrocyte distribution width (RBC) [Ratio] 13.2 % 11.5 - 15.0 % [facility] Hematocrit (Bld) [Volume fraction] 43.3 % 40.0 - 52.0 % [facility] Hemoglobin (Bld) [Mass/Vol] 14.3 g/dL 13.0 - 18.0 g/dL [facility] Immature granulocytes (Bld) [#/Vol] 0 10*3/uL NINF - 0.1 10*3/uL [facility] Immature granulocytes/100 WBC (Bld) 0.4 % 0.0 - 2.0 % [facility] Interpretation and review of laboratory results Abnormal [facility] Lymphocytes (Bld) [#/Vol] 2.4 10*3/uL 1.0 - 4.3 10*3/uL [facility] Lymphocytes/100 WBC (Bld) 32.3 % 15.0 - 45.0 % [facility] MCH (RBC) [Entitic mass] 33 pg 26.0 - 34.0 pg [facility] MCHC (RBC) [Mass/Vol] 33 % 30.5 - 36.0 % [facility] MCV (RBC) [Entitic vol] 100 fL High 77.0 - 99.0 fL [facility] Monocytes (Bld) [#/Vol] 0.7 10*3/uL 0.0 - 0.9 10*3/uL [facility] Monocytes/100 WBC (Bld) 8.8 % 5.0 - 13.0 % [facility] Neutrophils (Bld) [#/Vol] 4.2 10*3/uL 1.8 - 7.5 10*3/uL [facility] Neutrophils/100 WBC (Bld) 56.8 % 38.0 - 82.0 % [facility] Nucleated RBC/100 WBC (Bld) [Ratio] 0 % [facility] Platelet mean volume (Bld) [Entitic vol] 10.1 fL 9.0 - 12.7 fL [facility] Platelets (Bld) [#/Vol] 274 10*3/uL 140 - 440 10*3/uL [facility] RBC (Bld) [#/Vol] 4.33 10*6/uL Low 4.40 - 5.9 0 10*6/uL [facility] WBC (Bld) [#/Vol] 7.4 10*3/uL 3.6 - 10.7 10*3/uL [facility] CBC WITH AUTO DIFFERENTIALon 08-17-2024 Basophils (Bld) [#/Vol] 0.0 10*3/uL Normal 0.0-0.2 [facility] Comment on above: Performed By: #### L [id number] ####Software Designer: NICOLE BOWERS ([id number])[facility])[address] [place] [address] Basophils/100 WBC (Bld) 0.5 % Normal 0.0-2.0 [facility] Comment on above: Performed By: #### L [id number] ####Software Designer: NICOLE BOWERS ([id number])[facility])[address] [place] [address] [place] Eosinophils (Bld) [#/Vol] 0.1 10*3/uL Normal 0.0-0.5 [facility] Comment on above: Performed By: #### L [id number] ####Software Designer: NICOLE BOWERS ([id number])[facility])[address] [place] [address] [place] Eosinophils/100 WBC (Bld) 1.2 % Normal 0.0-6.0 [facility] Comment on above: Performed By: #### L [id number] ####Software Designer: NICOLE BOWERS ([id number])[facility])[address] [place] [address] Erythrocyte distribution width (RBC) [Ratio] 13.2 % Normal 11.5-15.0 [facility] Comment on above: Performed By: #### L [id number] ####Software Designer: NICOLE BOWERS ([id number])[facility])[address] [place] [address] Hematocrit (Bld) [Volume fraction] 43.3 % Normal 40.0-52.0 [facility] Comment on above: Performed By: #### L [id number] ####Software Designer: NICOLE BOWERS ([phone])[facility])[address] [place] [address] Hemoglobin (Bld) [Mass/Vol] 14.3 g/dL Normal 13.0-18.0 [facility] Comment on above: Performed By: #### L [id number] ####Software Designer: NICOLE BOWERS ([id number])[facility])[address] [place] [address] IMMATURE GRANS % 0.4 % Normal 0.0-2.0 [facility] Comment on above: Performed By: #### L [id number] ####Software Designer: NICOLE BOWERS ([id number])[facility])[address] [place] [address] IMMATURE GRANS ABSOLUTE 0.0 10*3/uL Normal <0.1 [facility] Comment on above: Performed By: #### L [id number] ####Software Designer: NICOLE BOWERS ([id number])[facility])[address] [place] [address] Lymphocytes (Bld) [#/Vol] 2.4 10*3/uL Normal 1.0-4.3 [facility] Comment on above: Performed By: #### L [id number] ####Software Designer: NICOLE BOWERS ([id number])[facility])[address] [place] [address] Lymphocytes/100 WBC (Bld) 32.3 % Normal 15.0-45.0 [facility] Comment on above: Performed By: #### L [id number] ####Software Designer: NICOLE BOWERS ([id number])[facility])[address] [place] [address] MCH (RBC) [Entitic mass] 33.0 pg Normal 26.0-34.0 [facility] Comment on above: Performed By: #### L [id number] ####Software Designer: NICOLE BOWERS ([id number])[facility])[address] [place] [address] MCHC 33.0 % Normal 30.5-36.0 [facility] Comment on above: Performed By: #### L [id number] ####Software Designer: NICOLE BOWERS ([id number])[facility])[address] [place] [address] MCV (RBC) [Entitic vol] 100.0 fL High 77.0-99.0 [facility] Comment on above: Performed By: #### L [id number] ####Software Designer: NICOLE BOWERS ([id number])[facility])[address] [place] [address] Monocytes (Bld) [#/Vol] 0.7 10*3/uL Normal 0.0-0.9 [facility] Comment on above: Performed By: #### L [id number] ####Software Designer: NICOLE BOWERS ([id number])[facility])[address] [place] [address] Monocytes/100 WBC (Bld) 8.8 % Normal 5.0-13.0 [facility] Comment on above: Performed By: #### L [id number] ####Software Designer: NICOLE BOWERS ([id number])[facility])[address] [place] [address] NEUTROPHILS ABSOLUTE 4.2 10*3/uL Normal 1.8-7.5 [facility] Comment on above: Performed By: #### L [id number] ####Software Designer: NICOLE BOWERS ([id number])[facility] [place] [address] Neutrophils/100 WBC (Bld) 56.8 % Normal 38.0-82.0 [facility] Comment on above: Performed By: #### L [id number] ####Software Designer: NICOLE BOWERS ([id number])[facility] ([facility])[address] [place] [address] NRBC 0.0 /100 WBCs Normal 0.0-2.0 [facility] Comment on above: Performed By: #### L [id number] ####Software Designer: NICOLE BOWERS ([id number])[facility] ([facility])[address] [place] [address] Platelet mean volume (Bld) [Entitic vol] 10.1 fL Normal 9.0-12.7 [facility] Comment on above: Performed By: #### L [id number] ####Software Designer: NICOLE BOWERS ([id number])[facility] ([facility])[address] [place] [address] Platelets (Bld) [#/Vol] 274 10*3/uL Normal 140-440 [facility] Comment on above: Performed By: #### L [id number] ####Software Designer: NICOLE BOWERS ([id number])[facility] ([facility])[address] [place] [address] RBC (Bld) [#/Vol] 4.33 10*6/uL Low 4.40-5.90 [facility] Comment on above: Performed By: #### L [id number] ####Software Designer: NICOLE BOWERS ([id number])[facility] ([facility])[address] [place] [address] [place] WBC (Bld) [#/Vol] 7.4 10*3/uL Normal 3.6-10.7 [facility] Comment on above: Performed By: #### L [id number] ####Software Designer: NICOLE BOWERS ([id number])[facility] ([facility])[address] [place] [address] COMPREHENSIVE METABOLIC PANE Ming 08-17-2024 Albumin [Mass/Vol] 2.9 g/dL Low 3.5-5.0 [facility] Comment on above: Performed By: #### L [id number], [id number] ####Software Designer: NICOLE BOWERS ([id number])[facility] ([facility])[address] [place] [address] ALP [Catalytic activity/Vol] 188 U/L High 40-150 [facility] Comment on above: Performed By: #### L [id number], [id number] ####Software Designer: NICOLE BOWERS ([id number])[facility] ([facility])[address] [place] [address] ALT [Catalytic activity/Vol] 56 U/L High <40 [facility] Comment on above: Performed By: #### L [id number], [id number] ####Software Designer: NICOLE BOWERS ([id number])[facility] ([facility])[address] [place] [address] Anion gap [Moles/Vol] 12 mmol/L Normal 3-13 [facility] Comment on above: Performed By: #### L [id number], [id number] ####Software Designer: NICOLE BOWERS ([id number])[facility] ([facility])[address] [place] [address] AST [Catalytic activity/Vol] 30 U/L Normal <34 [facility] Comment on above: Performed By: #### L AB17, [id number] ####Software Designer: NICOLE BOWERS ([id number])[facility])[address] [place] [address] Bilirubin [Mass/Vol] 1.6 mg/dL High <1.2 [facility] Comment on above: Performed By: #### L AB17, [id number] ####Software Designer: NICOLE BOWERS ([id number])[facility] ([facility])[address] [place] [address] Calcium [Mass/Vol] 7.7 mg/dL Low 8.4-10.2 [facility] Comment on above: Performed By: #### L AB17, [id number] ####Software Designer: NICOLE BOWERS ([id number])[facility])[address] [place] [address] [place] Chloride [Moles/Vol] 97 mmol/L Low 98-107 [facility] Comment on above: Performed By: #### L AB17, [id number] ####Software Designer: NICOLE BOWERS ([id number])[facility])[address] [place] [address] CO2 [Moles/Vol] 30 mmol/L High 22-29 [facility] Comment on above: Performed By: #### L AB17, [id number] ####Software Designer: NICOLE BOWERS ([id number])[facility])[address] [place] [address] Creatinine [Mass/Vol] 1.53 mg/dL High 0.72-1.25 [facility] Comment on above: Performed By: #### L AB17, [id number] ####Software Designer: NICOLE BOWERS ([id number])[facility] ([facility])[address] [place] [address] GLOMERULAR FILTRATION RATE ML/MIN/1.73 SQ M.PREDICTED 56.4 mL/min/1.73m*2 Low >60.0 [facility] Comment on above: Result Comment: Calc ulation based on the Chronic Kidney Disease Epidemiology Collaboration (CKD-EPI) equation refit without adjustment for race Performed By: #### L AB17, [id number] ####Software Designer: NICOLE BOWERS ([id number])[facility])[address] [place] [address] [place] Glucose [Mass/Vol] 102 mg/dL High 74-100 [facility] Comment on above: Performed By: #### L AB17, [id number] ####Software Designer: NICOLE BOWERS ([id number])[facility] ([facility])[address] [place] [address] [place] Potassium [Moles/Vol] 3.3 mmol/L Low 3.5-5.1 [facility] Comment on above: Result Comment: [facility] potassium values may be up to 0.5 mmol/L lower than serum values. Performed By: #### L AB17, [id number] ####Software Designer: NICOLE BOWERS ([id number])[facility] ([facility])[address] [place] [address] Protein [Mass/Vol] 5.8 g/dL Low 6.4-8.3 [facility] Comment on above: Performed By: #### L AB17, [id number] ####Software Designer: NICOLE BOWERS ([id number])[facility] ([facility])[address] [place] [address] Sodium [Moles/Vol] 139 mmol/L Normal 136-145 [facility] Comment on above: Performed By: #### L AB17, [id number] ####Software Designer: NICOLE BOWERS ([id number])[facility] ([facility])[address] [place] [address] Urea nitrogen [Mass/Vol] 32 mg/dL High 8-21 [facility] Comment on above: Performed By: #### L AB17, [id number] ####Software Designer: NICOLE BOWERS ([id number])[facility])[address] [place] [address] Comprehensive metabolic 1998 panelon 08-17-2024 Albumin [Mass/Vol] 2.9 g/dL Low 3.5 - 5.0 g/dL [facility] ALP [Catalytic activity/Vol] 188 U/L High 40 - 150 U/L [facility] ALT [Catalytic activity/Vol] 56 U/L High NINF - 40 U/L [facility] Anion gap [Moles/Vol] 12 mmol/L 3 - 13 mmol/L [facility] AST [Catalytic activity/Vol] 30 U/L NINF - 34 U/L [facility] Bilirubin [Mass/Vol] 1.6 mg/dL High NINF - 1.2 mg/dL [facility] Calcium [Mass/Vol] 7.7 mg/dL Low 8.4 - 10. 2 mg/dL [facility] Chloride [Moles/Vol] 97 mmol/L Low 98 - 10 7 mmol/L [facility] CO2 [Moles/Vol] 30 mmol/L High 22 - 29 mmol/L [facility] Creatinine [Mass/Vol] 1.53 mg/dL High 0.72 - 1.25 mg/dL [facility] GFR/1.73 sq M.predicted (S/P/Bld) [Vol rate/Area] 56.4 mL/min Low - PINF [facility] Glucose [Mass/Vol] 102 mg/dL High 74 - 100 mg/dL [facility] Interpretation and review of laboratory results Abnormal [facility] Potassium [Moles/Vol] 3.3 mmol/L Low 3.5 - 5.1 mmol/L [facility] Protein [Mass/Vol] 5.8 g/dL Low 6.4 - 8.3 g/dL [facility] Sodium [Moles/Vol] 139 mmol/L 136 - 145 mmol/L [facility] Urea nitrogen [Mass/Vol] 32 mg/dL High 8 - 21 mg/dL [facility] - Chemistry and C hemistry - challengeon 08-17-2024 Magnesium [Mass/Vol] 1.3 mg/dL Low 1.6 - 2 .6 mg/dL [facility] MAGNESIUMon 08-17-2024 Magnesium [Mass/Vol] 1.3 mg/dL Low 1.6-2.6 [facility] Comment on above: Result Comment: ALEJANDRO Aleman COMMENTS:Higher values can be expected in females during menses. Performed By: #### L AB17, [id number] ####Software Designer: NICOLE BOWERS ([id number])[address] Magnesium [Mass/Vol]on 08-17 Interpretation and review of laboratory results Abnormal [facility] Nursing Noteon 08-17-2024 Nursing Note Normal [facility] Nursing Note Normal [facility] Nursing Note RN notified Dr. Asa vasquez of potassium 3.3 and mag 1.3. waiting for repletion orders. Pt refusing mag IV bolus. RN messaged Dr. Samuel asking for oral option instead. Pt refusing potassium until after he eats his breakfast. Normal [facility] Progress Noteon 08-17-2024 Progress Note Normal [facility] Progress [facility] Progress Note Normal [facility] 30on 08-16-2024 30 Normal [facility] CBC W Auto Differential pane l (Bld)on 08-16-2024 Basophils (Bld) [#/Vol] 0 10*3/uL 0.0 - 0.2 10*3/uL [facility] Basophils/100 WBC (Bld) 0.5 % 0.0 - 2.0 % [facility] Eosinophils (Bld) [#/Vol] 0 10*3/uL 0.0 - 0.5 10*3/uL [facility] Eosinophils/100 WBC (Bld) 0.6 % 0.0 - 6.0 % [facility] Erythrocyte distribution width (RBC) [Ratio] 13.2 % 11.5 - 15.0 % [facility] Hematocrit (Bld) [Volume fraction] 39.6 % Low 40.0 - 52.0 % [facility] Hemoglobin (Bld) [Mass/Vol] 13.2 g/dL 13.0 - 18.0 g/dL [facility] Immature granulocytes (Bld) [#/Vol] 0 10*3/uL NINF - 0.1 10*3/uL [facility] Immature granulocytes/100 WBC (Bld) 0.5 % 0.0 - 2.0 % [facility] Interpretation and review of laboratory results Abnormal [facility] Lymphocytes (Bld) [#/Vol] 1.7 10*3/uL 1.0 - 4.3 10*3/uL [facility] Lymphocytes/100 WBC (Bld) 27.2 % 15.0 - 45.0 % [facility] MCH (RBC) [Entitic mass] 33.4 pg 26.0 - 34.0 pg [facility] MCHC (RBC) [Mass/Vol] 33.3 % 30.5 - 36.0 % [facility] MCV (RBC) [Entitic vol] 100.3 fL High 77.0 - 99.0 fL [facility] Monocytes (Bld) [#/Vol] 0.4 10*3/uL 0.0 - 0.9 10*3/uL [facility] Monocytes/100 WBC (Bld) 5.8 % 5.0 - 13.0 % [facility] Neutrophils (Bld) [#/Vol] 4 10*3/uL 1.8 - 7.5 10*3/uL [facility] Neutrophils/100 WBC (Bld) 65.4 % 38.0 - 82.0 % [facility] Nucleated RBC/100 WBC (Bld) [Ratio] 0 % [facility] Platelet mean volume (Bld) [Entitic vol] 9.7 fL 9.0 - 12.7 fL [facility] Platelets (Bld) [#/Vol] 242 10*3/uL 140 - 440 10*3/uL [facility] RBC (Bld) [#/Vol] 3.95 10*6/uL Low 4.40 - 5.9 0 10*6/uL [facility] WBC (Bld) [#/Vol] 6.2 10*3/uL 3.6 - 10.7 10*3/uL [facility] CBC WITH AUTO DIFFERENTIALon 08-16-2024 Basophils (Bld) [#/Vol] 0.0 10*3/uL Normal 0.0-0.2 [facility] Comment on above: Performed By: #### L [id number] ####Software Designer: NICOLE BOWERS ([id number])[address] Basophils/100 WBC (Bld) 0.5 % Normal 0.0-2.0 [facility] Comment on above: Performed By: #### L [id number] ####Software Designer: NICOLE BOWERS ([id number])[facility])[address] [place] [address] [place] Eosinophils (Bld) [#/Vol] 0.0 10*3/uL Normal 0.0-0.5 [facility] Comment on above: Performed By: #### L [id number] ####Software Designer: NICOLE BOWERS ([id number])[facility])[address] [place] [address] Eosinophils/100 WBC (Bld) 0.6 % Normal 0.0-6.0 [facility] Comment on above: Performed By: #### L [id number] ####Software Designer: NICOLE BOWERS ([id number])[facility])[address] [place] [address] Erythrocyte distribution width (RBC) [Ratio] 13.2 % Normal 11.5-15.0 [facility] Comment on above: Performed By: #### L [id number] ####Software Designer: NICOLE BOWERS ([id number])[facility])[address] [place] [address] Hematocrit (Bld) [Volume fraction] 39.6 % Low 40.0-52.0 [facility] Comment on above: Performed By: #### L [id number] ####Software Designer: NICOLE BOWERS ([id number])[facility])[address] [place] [address] Hemoglobin (Bld) [Mass/Vol] 13.2 g/dL Normal 13.0-18.0 [facility] Comment on above: Performed By: #### L [id number] ####Software Designer: NICOLE BOWERS ([id number])[facility] ([facility])[address] [place] [address] IMMATURE GRANS % 0.5 % Normal 0.0-2.0 [facility] Comment on above: Performed By: #### L [id number] ####Software Designer: NICOLE BOWERS ([id number])[facility])[address] [place] [address] IMMATURE GRANS ABSOLUTE 0.0 10*3/uL Normal <0.1 [facility] Comment on above: Performed By: #### L [id number] ####Software Designer: NICOLE BOWERS ([id number])[facility])[address] [place] [address] Lymphocytes (Bld) [#/Vol] 1.7 10*3/uL Normal 1.0-4.3 [facility] Comment on above: Performed By: #### L [id number] ####Software Designer: NICOLE BOWERS ([id number])[facility])[address] [place] [address] [place] Lymphocytes/100 WBC (Bld) 27.2 % Normal 15.0-45.0 [facility] Comment on above: Performed By: #### L [id number] ####Software Designer: NICOLE BOWERS ([id number])[facility])[address] [place] [address] MCH (RBC) [Entitic mass] 33.4 pg Normal 26.0-34.0 [facility] Comment on above: Performed By: #### L [id number] ####Software Designer: NICOLE BOWERS ([id number])[facility])[address] [place] [address] MCHC 33.3 % Normal 30.5-36.0 [facility] Comment on above: Performed By: #### L [id number] ####Software Designer: NICOLE BOWERS ([id number])[facility])[address] [place] [address] MCV (RBC) [Entitic vol] 100.3 fL High 77.0-99.0 [facility] Comment on above: Performed By: #### L [id number] ####Software Designer: NICOLE BOWERS ([id number])[facility])[address] [place] [address] Monocytes (Bld) [#/Vol] 0.4 10*3/uL Normal 0.0-0.9 [facility] Comment on above: Performed By: #### L [id number] ####Software Designer: NICOLE BOWERS ([id number])[facility] ([facility])[address] [place] [address] Monocytes/100 WBC (Bld) 5.8 % Normal 5.0-13.0 [facility] Comment on above: Performed By: #### L [id number] ####Software Designer: NICOLE BOWERS ([id number])[facility])[address] [place] [address] NEUTROPHILS ABSOLUTE 4.0 10*3/uL Normal 1.8-7.5 [facility] Comment on above: Performed By: #### L [id number] ####Software Designer: NICOLE BOWERS ([id number])[facility] ([facility])[address] [place] [address] Neutrophils/100 WBC (Bld) 65.4 % Normal 38.0-82.0 [facility] Comment on above: Performed By: #### L [id number] ####Software Designer: NICOLE BOWERS ([id number])[facility] ([facility])[address] [place] [address] NRBC 0.0 /100 WBCs Normal 0.0-2.0 [facility] Comment on above: Performed By: #### L [id number] ####Software Designer: NICOLE BOWERS ([id number])[facility] ([facility])[address] [place] [address] Platelet mean volume (Bld) [Entitic vol] 9.7 fL Normal 9.0-12.7 [facility] Comment on above: Performed By: #### L [id number] ####Software Designer: NICOLE BOWERS ([id number])[facility] ([facility])[address] [place] [address] Platelets (Bld) [#/Vol] 242 10*3/uL Normal 140-440 [facility] Comment on above: Performed By: #### L [id number] ####Software Designer: NICOLE BOWERS ([id number])[facility] ([facility])[address] [place] [address] RBC (Bld) [#/Vol] 3.95 10*6/uL Low 4.40-5.90 [facility] Comment on above: Performed By: #### L [id number] ####Software Designer: NICOLE BOWERS ([id number])[facility])[address] [place] [address] WBC (Bld) [#/Vol] 6.2 10*3/uL Normal 3.6-10.7 [facility] Comment on above: Performed By: #### L [id number] ####Software Designer: NICOLE BOWERS ([id number])[facility] [place] [address] COMPREHENSIVE METABOLIC PANE Ming 08-16-2024 Albumin [Mass/Vol] 2.9 g/dL Low 3.5-5.0 [facility] Comment on above: Performed By: #### L [id number] ####Software Designer: NICOLE BOWERS ([id number])[facility] ([facility])[address] [place] [address] ALP [Catalytic activity/Vol] 193 U/L High 40-150 [facility] Comment on above: Performed By: #### L [id number] ####Software Designer: NICOLE BOWERS ([id number])[facility] ([facility])[address] [place] [address] ALT [Catalytic activity/Vol] 64 U/L High <40 [facility] Comment on above: Performed By: #### L [id number] ####Software Designer: NICOLE BOWERS ([id number])[facility] ([facility])[address] [place] [address] Anion gap [Moles/Vol] 14 mmol/L High 3-13 [facility] Comment on above: Performed By: #### L [id number] ####Software Designer: NICOLE BOWERS ([id number])[facility] ([facility])[address] [place] [address] [place] AST [Catalytic activity/Vol] 35 U/L High <34 [facility] Comment on above: Performed By: #### L [id number] ####Software Designer: NICOLE BOWERS ([id number])[facility] ([facility])[address] [place] [address] [place] Bilirubin [Mass/Vol] 1.8 mg/dL High <1.2 [facility] Comment on above: Performed By: #### L [id number] ####Software Designer: NICOLE BOWERS ([id number])[facility] ([facility])[address] [place] [address] [place] Calcium [Mass/Vol] 7.8 mg/dL Low 8.4-10.2 [facility] Comment on above: Performed By: #### L [id number] ####Software Designer: NICOLE BOWERS ([id number])[facility] ([facility] - [place])[address] [place] [address] Chloride [Moles/Vol] 100 mmol/L Normal 98-107 [facility] Comment on above: Performed By: #### L [id number] ####Software Designer: NICOLE BOWERS ([id number])[facility] [place] [address] CO2 [Moles/Vol] 27 mmol/L Normal 22-29 [facility] Comment on above: Performed By: #### L [id number] ####Software Designer: NICOLE BOWERS ([id number])[facility] [place] [address] Creatinine [Mass/Vol] 1.81 mg/dL High 0.72-1.25 [facility] Comment on above: Performed By: #### L [id number] ####Software Designer: NICOLE BOWERS ([id number])[facility] ([facility])[address] [place] [address] [place] GLOMERULAR FILTRATION RATE ML/MIN/1.73 SQ M.PREDICTED 46.1 mL/min/1.73m*2 Low >60.0 [facility] Comment on above: Result Comment: Calc ulation based on the Chronic Kidney Disease Epidemiology Collaboration (CKD-EPI) equation refit without adjustment for race Performed By: #### L [id number] ####Software Designer: NICOLE BOWERS ([id number])[facility] [place] [address] [place] Glucose [Mass/Vol] 190 mg/dL High 74-100 [facility] Comment on above: Performed By: #### L [id number] ####Software Designer: NICOLE BOWERS ([id number])[facility] [place] [address] [place] Potassium [Moles/Vol] 3.2 mmol/L Low 3.5-5.1 [facility] Comment on above: Result Comment: Plas ma potassium values may be up to 0.5 mmol/L lower than serum values. Performed By: #### L [id number] ####Software Designer: NICOLE BOWERS ([id number])[facility])[address] [place] [address] Protein [Mass/Vol] 5.6 g/dL Low 6.4-8.3 [facility] Comment on above: Performed By: #### L [id number] ####Software Designer: NICOLE BOWERS ([id number])[facility] ([facility])[address] [place] [address] Sodium [Moles/Vol] 141 mmol/L Normal 136-145 [facility] Comment on above: Performed By: #### L [id number] ####Software Designer: NCIOLE BOWERS ([id number])[facility] ([facility])[address] [place] [address] Urea nitrogen [Mass/Vol] 33 mg/dL High 8-21 [facility] Comment on above: Performed By: #### L [id number] ####Software Designer: NICOLE BOWERS ([id number])[facility])[address] [place] [address] Comprehensive metabolic 1998 panelon 08-16-2024 Albumin [Mass/Vol] 2.9 g/dL Low 3.5 - 5.0 g/dL [facility] ALP [Catalytic activity/Vol] 193 U/L High 40 - 150 U/L [facility] ALT [Catalytic activity/Vol] 64 U/L High NINF - 40 U/L [facility] Anion gap [Moles/Vol] 14 mmol/L High 3 - 13 mmol/L [facility] AST [Catalytic activity/Vol] 35 U/L High NINF - 34 U/L [facility] Bilirubin [Mass/Vol] 1.8 mg/dL High NINF - 1.2 mg/dL [facility] Calcium [Mass/Vol] 7.8 mg/dL Low 8.4 - 10. 2 mg/dL [facility] Chloride [Moles/Vol] 100 mmol/L 98 - 10 7 mmol/L [facility] CO2 [Moles/Vol] 27 mmol/L 22 - 29 mmol/L [facility] Creatinine [Mass/Vol] 1.81 mg/dL High 0.72 - 1.25 mg/dL [facility] GFR/1.73 sq M.predicted (S/P/Bld) [Vol rate/Area] 46.1 mL/min Low - PINF [facility] Glucose [Mass/Vol] 190 mg/dL High 74 - 100 mg/dL [facility] Interpretation and review of laboratory results Abnormal [facility] Potassium [Moles/Vol] 3.2 mmol/L Low 3.5 - 5.1 mmol/L [facility] Protein [Mass/Vol] 5.6 g/dL Low 6.4 - 8.3 g/dL [facility] Sodium [Moles/Vol] 141 mmol/L 136 - 145 mmol/L [facility] Urea nitrogen [Mass/Vol] 33 mg/dL High 8 - 21 mg/dL [facility] Nursing Noteon 08-16-2024 Nursing Note RN notified Dr. Peterson of 17 beat run [facility]. Pt asymptomatic. Mag level added to morning labs. Normal [facility] Progress Noteon 08-16-2024 Progress Note Normal [facility] Progress Note Normal [facility] Progress Note Normal [facility] 30on 08-15-2024 30 Normal [facility] 30 Normal [facility] CBC W Auto Differential pane l (Bld)on 08-15-2024 Basophils (Bld) [#/Vol] 0 10*3/uL 0.0 - 0.2 10*3/uL [facility] Basophils/100 WBC (Bld) 0.4 % 0.0 - 2.0 % [facility] Eosinophils (Bld) [#/Vol] 0.1 10*3/uL 0.0 - 0.5 10*3/uL [facility] Eosinophils/100 WBC (Bld) 0.7 % 0.0 - 6.0 % [facility] Erythrocyte distribution width (RBC) [Ratio] 13.3 % 11.5 - 15.0 % [facility] Hematocrit (Bld) [Volume fraction] 43.5 % 40.0 - 52.0 % [facility] Hemoglobin (Bld) [Mass/Vol] 14.7 g/dL 13.0 - 18.0 g/dL [facility] Immature granulocytes (Bld) [#/Vol] 0 10*3/uL NINF - 0.1 10*3/uL [facility] Immature granulocytes/100 WBC (Bld) 0.2 % 0.0 - 2.0 % [facility] Interpretation and review of laboratory results Abnormal [facility] Lymphocytes (Bld) [#/Vol] 3.6 10*3/uL 1.0 - 4.3 10*3/uL [facility] Lymphocytes/100 WBC (Bld) 43.9 % 15.0 - 45.0 % [facility] MCH (RBC) [Entitic mass] 33.6 pg 26.0 - 34.0 pg [facility] MCHC (RBC) [Mass/Vol] 33.8 % 30.5 - 36.0 % [facility] MCV (RBC) [Entitic vol] 99.3 fL High 77.0 - 99.0 fL [facility] Monocytes (Bld) [#/Vol] 0.7 10*3/uL 0.0 - 0.9 10*3/uL [facility] Monocytes/100 WBC (Bld) 8.6 % 5.0 - 13.0 % [facility] Neutrophils (Bld) [#/Vol] 3.7 10*3/uL 1.8 - 7.5 10*3/uL [facility] Neutrophils/100 WBC (Bld) 46.2 % 38.0 - 82.0 % [facility] Nucleated RBC/100 WBC (Bld) [Ratio] 0 % [facility] Platelet mean volume (Bld) [Entitic vol] 10.2 fL 9.0 - 12.7 fL [facility] Platelets (Bld) [#/Vol] 258 10*3/uL 140 - 440 10*3/uL [facility] RBC (Bld) [#/Vol] 4.38 10*6/uL Low 4.40 - 5.9 0 10*6/uL [facility] WBC (Bld) [#/Vol] 8.1 10*3/uL 3.6 - 10.7 10*3/uL [facility] CBC WITH AUTO DIFFERENTIALon 08-15-2024 Basophils (Bld) [#/Vol] 0.0 10*3/uL Normal 0.0-0.2 [facility] Comment on above: Performed By: #### L [id number] ####Software Designer: NICOLE BOWERS ([id number])[facility])[address] [place] [address] Basophils/100 WBC (Bld) 0.4 % Normal 0.0-2.0 [facility] Comment on above: Performed By: #### L [id number] ####Software Designer: NICOLE BOWERS ([id number])[facility])[address] [place] [address] Eosinophils (Bld) [#/Vol] 0.1 10*3/uL Normal 0.0-0.5 [facility] Comment on above: Performed By: #### L [id number] ####Software Designer: NICOLE BOWERS ([id number])[address] Eosinophils/100 WBC (Bld) 0.7 % Normal 0.0-6.0 [facility] Comment on above: Performed By: #### L [id number] ####Software Designer: NICOLE BOWERS ([id number])[facility])[address] [place] [address] Erythrocyte distribution width (RBC) [Ratio] 13.3 % Normal 11.5-15.0 [facility] Comment on above: Performed By: #### L [id number] ####Software Designer: NICOLE BOWERS ([id number])[address] Hematocrit (Bld) [Volume fraction] 43.5 % Normal 40.0-52.0 [facility] Comment on above: Performed By: #### L [id number] ####Software Designer: NICOLE BOWERS ([id number])[address] Hemoglobin (Bld) [Mass/Vol] 14.7 g/dL Normal 13.0-18.0 [facility] Comment on above: Performed By: #### L [id number] ####Software Designer: NICOLE [id number])[facility] ([facility])[address] [place] [address] IMMATURE GRANS % 0.2 % Normal 0.0-2.0 [facility] Comment on above: Performed By: #### L [id number] ####Software Designer: NICOLE BOWERS ([id number])[facility])[address] [place] [address] IMMATURE GRANS ABSOLUTE 0.0 10*3/uL Normal <0.1 [facility] Comment on above: Performed By: #### L [id number] ####Software Designer: NICOLE BOWERS ([id number])[facility])[address] [place] [address] Lymphocytes (Bld) [#/Vol] 3.6 10*3/uL Normal 1.0-4.3 [facility] Comment on above: Performed By: #### L [id number] ####Software Designer: NICOLE BOWERS ([id number])[facility])[address] [place] [address] Lymphocytes/100 WBC (Bld) 43.9 % Normal 15.0-45.0 [facility] Comment on above: Performed By: #### L [id number] ####Software Designer: NICOLE BOWERS ([id number])[facility])[address] [place] [address] MCH (RBC) [Entitic mass] 33.6 pg Normal 26.0-34.0 [facility] Comment on above: Performed By: #### L [id number] ####Software Designer: NICOLE BOWERS ([id number])[facility])[address] [place] [address] MCHC 33.8 % Normal 30.5-36.0 [facility] Comment on above: Performed By: #### L [id number] ####Software Designer: NICOLE BOWERS ([id number])[facility])[address] [place] [address] MCV (RBC) [Entitic vol] 99.3 fL High 77.0-99.0 [facility] Comment on above: Performed By: #### L [id number] ####Software Designer: NICOLE BOWERS ([id number])[facility])[address] [place] [address] Monocytes (Bld) [#/Vol] 0.7 10*3/uL Normal 0.0-0.9 [facility] Comment on above: Performed By: #### L [id number] ####Software Designer: NICOLE BOWERS ([id number])[facility] ([facility])[address] [place] [address] Monocytes/100 WBC (Bld) 8.6 % Normal 5.0-13.0 [facility] Comment on above: Performed By: #### L [id number] ####Software Designer: NICOLE BOWERS ([id number])[facility])[address] [place] [address] NEUTROPHILS ABSOLUTE 3.7 10*3/uL Normal 1.8-7.5 [facility] Comment on above: Performed By: #### L [id number] ####Software Designer: NICOLE BOWERS ([id number])[facility])[address] [place] [address] Neutrophils/100 WBC (Bld) 46.2 % Normal 38.0-82.0 [facility] Comment on above: Performed By: #### L [id number] ####Software Designer: NICOLE BOWERS ([id number])[facility])[address] [place] [address] NRBC 0.0 /100 WBCs Normal 0.0-2.0 [facility] Comment on above: Performed By: #### L [id number] ####Software Designer: NICOLE BOWERS ([id number])[facility])[address] [place] [address] Platelet mean volume (Bld) [Entitic vol] 10.2 fL Normal 9.0-12.7 [facility] Comment on above: Performed By: #### L [id number] ####Software Designer: NICOLE BOWERS ([id number])[facility] ([facility])[address] [place] [address] Platelets (Bld) [#/Vol] 258 10*3/uL Normal 140-440 [facility] Comment on above: Performed By: #### L [id number] ####Software Designer: NICOLE BOWRES ([id number])[facility] ([facility])[address] [place] [address] RBC (Bld) [#/Vol] 4.38 10*6/uL Low 4.40-5.90 [facility] Comment on above: Performed By: #### L [id number] ####Software Designer: NICOLE BOWERS ([id number])[facility] ([facility])[address] [place] [address] WBC (Bld) [#/Vol] 8.1 10*3/uL Normal 3.6-10.7 [facility] Comment on above: Performed By: #### L [id number] ####Software Designer: NICOLE BOWERS ([id number])[facility] ([facility])[address] [place] [address] COMPREHENSIVE METABOLIC PANE Ming 08-15-2024 Albumin [Mass/Vol] 3.1 g/dL Low 3.5-5.0 [facility] Comment on above: Performed By: #### L [id number] ####Software Designer: NICOLE BOWERS ([id number])[facility] ([facility])[address] [place] [address] ALP [Catalytic activity/Vol] 223 U/L High 40-150 [facility] Comment on above: Performed By: #### L [id number] ####Software Designer: NICOLE BOWERS ([id number])[facility])[address] [place] [address] ALT [Catalytic activity/Vol] 69 U/L High <40 [facility] Comment on above: Performed By: #### L [id number] ####Software Designer: NICOLE BOWERS ([id number])[facility] [place] [address] Anion gap [Moles/Vol] 11 mmol/L Normal 3-13 [facility] Comment on above: Performed By: #### L [id number] ####Software Designer: NICOLE BOWERS ([id number])[facility] [place] [address] AST [Catalytic activity/Vol] 32 U/L Normal <34 [facility] Comment on above: Performed By: #### L [id number] ####Software Designer: NICOLE BOWERS ([id number])[facility] ([facility])[address] [place] [address] Bilirubin [Mass/Vol] 1.9 mg/dL High <1.2 [facility] Comment on above: Performed By: #### L [id number] ####Software Designer: NICOLE BOWERS ([id number])[facility] ([facility])[address] [place] [address] Calcium [Mass/Vol] 8.3 mg/dL Low 8.4-10.2 [facility] Comment on above: Performed By: #### L [id number] ####Software Designer: NCIOLE BOWERS ([id number])[facility] ([facility])[address] [place] [address] Chloride [Moles/Vol] 102 mmol/L Normal 98-107 [facility] Comment on above: Performed By: #### L [id number] ####Software Designer: NICOLE BOWERS ([id number])[facility] ([facility])[address] [place] [address] [place] CO2 [Moles/Vol] 24 mmol/L Normal 22-29 [facility] Comment on above: Performed By: #### L [id number] ####Software Designer: NICOLE BOWERS ([id number])[facility] ([facility])[address] [place] [address] [place] Creatinine [Mass/Vol] 1.94 mg/dL High 0.72-1.25 [facility] Comment on above: Performed By: #### L [id number] ####Software Designer: NICOLE BOWERS ([id number])[facility] ([facility])[address] [place] [address] [place] GLOMERULAR FILTRATION RATE ML/MIN/1.73 SQ M.PREDICTED 42.4 mL/min/1.73m*2 Low >60.0 [facility] Comment on above: Result Comment: Calc ulation based on the Chronic Kidney Disease Epidemiology Collaboration (CKD-EPI) equation refit without adjustment for race Performed By: #### L [id number] ####Software Designer: NICOLE BOWERS ([id number])[facility] ([facility])[address] [place] [address] [place] Glucose [Mass/Vol] 104 mg/dL High 74-100 [facility] Comment on above: Performed By: #### L [id number] ####Software Designer: NICOLE BOWERS ([id number])[facility])[address] [place] [address] Potassium [Moles/Vol] 3.6 mmol/L Normal 3.5-5.1 [facility] Comment on above: Result Comment: [facility] potassium values may be up to 0.5 mmol/L lower than serum values. Performed By: #### L [id number] ####Software Designer: NICOLE BOWERS ([id number])[facility] ([facility])[address] [place] [address] [place] Protein [Mass/Vol] 6.0 g/dL Low 6.4-8.3 [facility] Comment on above: Performed By: #### L [id number] ####Software Designer: INCOLE BOWERS ([id number])[facility] ([facility])[address] [place] [address] [place] Sodium [Moles/Vol] 137 mmol/L Normal 136-145 [facility] Comment on above: Performed By: #### L [id number] ####Software Designer: NICOLE BOWERS ([id number])[facility] ([facility])[address] [place] [address] [place] Urea nitrogen [Mass/Vol] 37 mg/dL High 8-21 [facility] Comment on above: Performed By: #### L [id number] ####Software Designer: NICOLE BOWERS ([id number])[facility] ([address] Comprehensive metabolic 1998 panelon 08-15-2024 Albumin [Mass/Vol] 3.1 g/dL Low 3.5 - 5.0 g/dL [facility] ALP [Catalytic activity/Vol] 223 U/L High 40 - 150 U/L [facility] ALT [Catalytic activity/Vol] 69 U/L High NINF - 40 U/L [facility] Anion gap [Moles/Vol] 11 mmol/L 3 - 13 mmol/L [facility] AST [Catalytic activity/Vol] 32 U/L NINF - 34 U/L [facility] Bilirubin [Mass/Vol] 1.9 mg/dL High NINF - 1.2 mg/dL [facility] Calcium [Mass/Vol] 8.3 mg/dL Low 8.4 - 10. 2 mg/dL [facility] Chloride [Moles/Vol] 102 mmol/L 98 - 10 7 mmol/L [facility] CO2 [Moles/Vol] 24 mmol/L 22 - 29 mmol/L [facility] Creatinine [Mass/Vol] 1.94 mg/dL High 0.72 - 1.25 mg/dL [facility] GFR/1.73 sq M.predicted (S/P/Bld) [Vol rate/Area] 42.4 mL/min Low - PINF [facility] Glucose [Mass/Vol] 104 mg/dL High 74 - 100 mg/dL [facility] Interpretation and review of laboratory results Abnormal [facility] Potassium [Moles/Vol] 3.6 mmol/L 3.5 - 5.1 mmol/L [facility] Protein [Mass/Vol] 6 g/dL Low 6.4 - 8.3 g/dL [facility] Sodium [Moles/Vol] 137 mmol/L 136 - 145 mmol/L [facility] Urea nitrogen [Mass/Vol] 37 mg/dL High 8 - 21 mg/dL [facility] Consulton 08-15-2024 Consult Normal [facility] Progress Noteon 08-15-2024 Progress Note [facility] Progress [facility] Progress Note Normal [facility] CBC W Auto Differential pane l (Bld)on 08-14-2024 Basophils (Bld) [#/Vol] 0 10*3/uL 0.0 - 0.2 10*3/uL [facility] Basophils/100 WBC (Bld) 0.3 % 0.0 - 2.0 % [facility] Eosinophils (Bld) [#/Vol] 0 10*3/uL 0.0 - 0.5 10*3/uL [facility] Eosinophils/100 WBC (Bld) 0.4 % 0.0 - 6.0 % [facility] Erythrocyte distribution width (RBC) [Ratio] 13.3 % 11.5 - 15.0 % [facility] Hematocrit (Bld) [Volume fraction] 41.7 % 40.0 - 52.0 % [facility] Hemoglobin (Bld) [Mass/Vol] 13.8 g/dL 13.0 - 18.0 g/dL [facility] Immature granulocytes (Bld) [#/Vol] 0 10*3/uL NINF - 0.1 10*3/uL [facility] Immature granulocytes/100 WBC (Bld) 0.4 % 0.0 - 2.0 % [facility] Interpretation and review of laboratory results Abnormal [facility] Lymphocytes (Bld) [#/Vol] 1.9 10*3/uL 1.0 - 4.3 10*3/uL [facility] Lymphocytes/100 WBC (Bld) 25.6 % 15.0 - 45.0 % [facility] MCH (RBC) [Entitic mass] 33.4 pg 26.0 - 34.0 pg [facility] MCHC (RBC) [Mass/Vol] 33.1 % 30.5 - 36.0 % [facility] MCV (RBC) [Entitic vol] 101 fL High 77.0 - 99.0 fL [facility] Monocytes (Bld) [#/Vol] 0.6 10*3/uL 0.0 - 0.9 10*3/uL [facility] Monocytes/100 WBC (Bld) 8.5 % 5.0 - 13.0 % [facility] Neutrophils (Bld) [#/Vol] 4.7 10*3/uL 1.8 - 7.5 10*3/uL [facility] Neutrophils/100 WBC (Bld) 64.8 % 38.0 - 82.0 % [facility] Nucleated RBC/100 WBC (Bld) [Ratio] 0 % [facility] Platelet mean volume (Bld) [Entitic vol] 10.2 fL 9.0 - 12.7 fL [facility] Platelets (Bld) [#/Vol] 258 10*3/uL 140 - 440 10*3/uL [facility] RBC (Bld) [#/Vol] 4.13 10*6/uL Low 4.40 - 5.9 0 10*6/uL [facility] WBC (Bld) [#/Vol] 7.3 10*3/uL 3.6 - 10.7 10*3/uL [facility] CBC WITH AUTO DIFFERENTIALon 08-14-2024 Basophils (Bld) [#/Vol] 0.0 10*3/uL Normal 0.0-0.2 [facility] Comment on above: Performed By: #### L [id number] ####Software Designer: NICOLE BOWERS ([id number])[facility])[address] [place] [address] Basophils/100 WBC (Bld) 0.3 % Normal 0.0-2.0 [facility] Comment on above: Performed By: #### L [id number] ####Software Designer: NICOLE BOWERS ([id number])[facility])[address] [place] [address] Eosinophils (Bld) [#/Vol] 0.0 10*3/uL Normal 0.0-0.5 [facility] Comment on above: Performed By: #### L [id number] ####Software Designer: NICOLE BOWERS ([id number])[facility])[address] [place] [address] Eosinophils/100 WBC (Bld) 0.4 % Normal 0.0-6.0 [facility] Comment on above: Performed By: #### L [id number] ####Software Designer: NICOLE BOWERS ([id number])[facility])[address] [place] [address] Erythrocyte distribution width (RBC) [Ratio] 13.3 % Normal 11.5-15.0 [facility] Comment on above: Performed By: #### L [id number] ####Software Designer: NICOLE BOWERS ([id number])[facility])[address] [place] [address] Hematocrit (Bld) [Volume fraction] 41.7 % Normal 40.0-52.0 [facility] Comment on above: Performed By: #### L [id number] ####Software Designer: NICOLE BOWERS ([id number])[facility])[address] [place] [address] Hemoglobin (Bld) [Mass/Vol] 13.8 g/dL Normal 13.0-18.0 [facility] Comment on above: Performed By: #### L [id number] ####Software Designer: NICOLE BOWERS ([id number])[address] IMMATURE GRANS % 0.4 % Normal 0.0-2.0 [facility] Comment on above: Performed By: #### L [id number] ####Software Designer: NICOLE BOWERS ([id number])[address] IMMATURE GRANS ABSOLUTE 0.0 10*3/uL Normal <0.1 [facility] Comment on above: Performed By: #### L [id number] ####Software Designer: NICOLE BOWERS ([id number])[facility])[address] [place] [address] Lymphocytes (Bld) [#/Vol] 1.9 10*3/uL Normal 1.0-4.3 [facility] Comment on above: Performed By: #### L [id number] ####Software Designer: NICOLE BOWERS ([id number])[address] Lymphocytes/100 WBC (Bld) 25.6 % Normal 15.0-45.0 [facility] Comment on above: Performed By: #### L [id number] ####Software Designer: NICOLE BOWERS ([id number])[facility])[address] [place] [address] MCH (RBC) [Entitic mass] 33.4 pg Normal 26.0-34.0 [facility] Comment on above: Performed By: #### L [id number] ####Software Designer: NICOLE BOWERS ([id number])[facility])[address] [place] [address] MCHC 33.1 % Normal 30.5-36.0 [facility] Comment on above: Performed By: #### L [id number] ####Software Designer: NICOLE BOWERS ([id number])[facility])[address] [place] [address] MCV (RBC) [Entitic vol] 101.0 fL High 77.0-99.0 [facility] Comment on above: Performed By: #### L [id number] ####Software Designer: NICOLE BOWERS ([id number])[facility] ([facility])[address] [place] [address] Monocytes (Bld) [#/Vol] 0.6 10*3/uL Normal 0.0-0.9 [facility] Comment on above: Performed By: #### L [id number] ####Software Designer: NICOLE BOWERS ([id number])[facility])[address] [place] [address] Monocytes/100 WBC (Bld) 8.5 % Normal 5.0-13.0 [facility] Comment on above: Performed By: #### L [id number] ####Software Designer: NICOLE BOWERS ([id number])[facility])[address] [place] [address] NEUTROPHILS ABSOLUTE 4.7 10*3/uL Normal 1.8-7.5 [facility] Comment on above: Performed By: #### L [id number] ####Software Designer: NICOLE BOWERS ([id number])[facility])[address] [place] [address] Neutrophils/100 WBC (Bld) 64.8 % Normal 38.0-82.0 [facility] Comment on above: Performed By: #### L [id number] ####Software Designer: NICOLE BOWERS ([id number])[facility] ([facility])[address] [place] [address] NRBC 0.0 /100 WBCs Normal 0.0-2.0 [facility] Comment on above: Performed By: #### L [id number] ####Software Designer: NICOLE BOWERS ([id number])[facility])[address] [place] [address] Platelet mean volume (Bld) [Entitic vol] 10.2 fL Normal 9.0-12.7 [facility] Comment on above: Performed By: #### L [id number] ####Software Designer: NICOLE BOWERS ([id number])[facility] ([facility])[address] [place] [address] Platelets (Bld) [#/Vol] 258 10*3/uL Normal 140-440 [facility] Comment on above: Performed By: #### L [id number] ####Software Designer: NICOLE BOWERS ([id number])[facility] ([facility])[address] [place] [address] RBC (Bld) [#/Vol] 4.13 10*6/uL Low 4.40-5.90 [facility] Comment on above: Performed By: #### L [id number] ####Software Designer: NICOLE BOWERS ([id number])[facility] ([facility])[address] [place] [address] WBC (Bld) [#/Vol] 7.3 10*3/uL Normal 3.6-10.7 [facility] Comment on above: Performed By: #### L [id number] ####Software Designer: NICOLE BOWERS ([id number])[facility] ([facility])[address] [place] [address] COMPREHENSIVE METABOLIC PANE Ming 08-14-2024 Albumin [Mass/Vol] 2.8 g/dL Low 3.5-5.0 [facility] Comment on above: Performed By: #### L JACKI, LAB17 ####Software Designer: NICOLE BOWERS ([id number])[facility] ([facility])[address] [place] [address] ALP [Catalytic activity/Vol] 230 U/L High 40-150 [facility] Comment on above: Performed By: #### L AB103, LAB17 ####Software Designer: NICOLE BOWERS ([id number])[facility] ([facility])[address] [place] [address] ALT [Catalytic activity/Vol] 73 U/L High <40 [facility] Comment on above: Performed By: #### Pedro ECHEVERRIA, LAB17 ####Software Designer: NICOLE BOWERS ([id number])[facility] ([facility])[address] [place] [address] Anion gap [Moles/Vol] 10 mmol/L Normal 3-13 [facility] Comment on above: Performed By: #### Pedro ECHEVERRIA, LAB17 ####Software Designer: NICOLE BOWERS ([id number])[facility] ([facility])[address] [place] [address] AST [Catalytic activity/Vol] 36 U/L High <34 [facility] Comment on above: Performed By: #### Pedro ECHEVERRIA, LAB17 ####Software Designer: NICOLE BOWERS ([id number])[facility])[address] [place] [address] Bilirubin [Mass/Vol] 2.1 mg/dL High <1.2 [facility] Comment on above: Performed By: #### L ABKiera, LAB17 ####Software Designer: NICOLE BOWERS ([id number])[facility])[address] [place] [address] Calcium [Mass/Vol] 8.2 mg/dL Low 8.4-10.2 [facility] Comment on above: Performed By: #### L AB103, LAB17 ####Software Designer: NICOLE BOWERS ([id number])[facility] ([facility])[address] [place] [address] Chloride [Moles/Vol] 102 mmol/L Normal 98-107 [facility] Comment on above: Performed By: #### L AB103, LAB17 ####Software Designer: NICOLE BOWERS ([id number])[facility])[address] [place] [address] [place] CO2 [Moles/Vol] 26 mmol/L Normal 22-29 [facility] Comment on above: Performed By: #### L AB103, LAB17 ####Software Designer: NICOLE BOWERS ([id number])[facility])[address] [place] [address] Creatinine [Mass/Vol] 2.17 mg/dL High 0.72-1.25 [facility] Comment on above: Performed By: #### L AB103, LAB17 ####Software Designer: NICOLE BOWERS ([id number])[facility] ([facility])[address] [place] [address] GLOMERULAR FILTRATION RATE ML/MIN/1.73 SQ M.PREDICTED 37.1 mL/min/1.73m*2 Low >60.0 [facility] Comment on above: Result Comment: Calc ulation based on the Chronic Kidney Disease Epidemiology Collaboration (CKD-EPI) equation refit without adjustment for race Performed By: #### L AB103, LAB17 ####Software Designer: NICOLE BOWERS ([id number])[facility])[address] [place] [address] [place] Glucose [Mass/Vol] 151 mg/dL High 74-100 [facility] Comment on above: Performed By: #### L AB103, LAB17 ####Software Designer: NICOLE BOWERS ([id number])[facility] ([facility])[address] [place] [address] [place] Potassium [Moles/Vol] 3.3 mmol/L Low 3.5-5.1 [facility] Comment on above: Result Comment: Plas ma potassium values may be up to 0.5 mmol/L lower than serum values. Performed By: #### L AB103, LAB17 ####Software Designer: NICOLE BOWERS ([id number])[facility] ([facility])[address] [place] [address] Protein [Mass/Vol] 5.5 g/dL Low 6.4-8.3 [facility] Comment on above: Performed By: #### L AB103, LAB17 ####Software Designer: NICOLE BOWERS ([id number])[facility])[address] [place] [address] Sodium [Moles/Vol] 138 mmol/L Normal 136-145 [facility] Comment on above: Performed By: #### L AB103, LAB17 ####Software Designer: NICOLE BOWERS ([id number])[facility])[address] [place] [address] Urea nitrogen [Mass/Vol] 39 mg/dL High 8-21 [facility] Comment on above: Performed By: #### L AB103, LAB17 ####Software Designer: NICOLE BOWERS ([id number])[facility])[address] [place] [address] Comprehensive metabolic 1998 panelon 08-14-2024 Albumin [Mass/Vol] 2.8 g/dL Low 3.5 - 5.0 g/dL [facility] ALP [Catalytic activity/Vol] 230 U/L High 40 - 150 U/L [facility] ALT [Catalytic activity/Vol] 73 U/L High NINF - 40 U/L [facility] Anion gap [Moles/Vol] 10 mmol/L 3 - 13 mmol/L [facility] AST [Catalytic activity/Vol] 36 U/L High NINF - 34 U/L [facility] Bilirubin [Mass/Vol] 2.1 mg/dL High NINF - 1.2 mg/dL [facility] Calcium [Mass/Vol] 8.2 mg/dL Low 8.4 - 10. 2 mg/dL [facility] Chloride [Moles/Vol] 102 mmol/L 98 - 10 7 mmol/L [facility] CO2 [Moles/Vol] 26 mmol/L 22 - 29 mmol/L [facility] Creatinine [Mass/Vol] 2.17 mg/dL High 0.72 - 1.25 mg/dL [facility] GFR/1.73 sq M.predicted (S/P/Bld) [Vol rate/Area] 37.1 mL/min Low - PINF [facility] Glucose [Mass/Vol] 151 mg/dL High 74 - 100 mg/dL [facility] Interpretation and review of laboratory results Abnormal [facility] Potassium [Moles/Vol] 3.3 mmol/L Low 3.5 - 5.1 mmol/L [facility] Protein [Mass/Vol] 5.5 g/dL Low 6.4 - 8.3 g/dL [facility] Sodium [Moles/Vol] 138 mmol/L 136 - 145 mmol/L [facility] Urea nitrogen [Mass/Vol] 39 mg/dL High 8 - 21 mg/dL [facility] - Chemistry and C hemistry - challengeon 08-14-2024 Magnesium [Mass/Vol] 1.6 mg/dL 1.6 - 2 .6 mg/dL [facility] MAGNESIUMon 08-14-2024 Magnesium [Mass/Vol] 1.6 mg/dL Normal 1.6-2.6 [facility] Comment on above: Result Comment: ALEJANDRO Aleman COMMENTS:Higher values can be expected in females during menses. Performed By: #### L AB103, LAB17 ####Software Designer: NICOLE BOWERS ([id number])[address] Magnesium [Mass/Vol]on 08-14 Interpretation and review of laboratory results Normal [facility] Nursing Noteon 08-14-2024 Nursing Note Pt refused bloodwork this night, RN attempted to educate on reasons why bloodwork being drawn daily. Notified Dr. Hawley. Normal [facility] Progress Noteon 08-14-2024 Progress Note Normal [facility] Progress Note Normal [facility] Progress Note Normal [facility] 30on 08-13-2024 30 Normal [facility] 30 Normal [facility] [id number] 08-13-2024 [id number] Has an accepting DR at [facility], no beds. Continues on IV Bumex. Plan is home when stable, [facility] [phone] SW met with pt. Introduced self. SW completed 30 day readmission questionnaire with pt. Pt denies any needs from SW at this time. [facility] CBC W Auto Differential pane l (Bld)on 08-13-2024 Basophils (Bld) [#/Vol] 0 10*3/uL 0.0 - 0.2 10*3/uL [facility] Basophils/100 WBC (Bld) 0.4 % 0.0 - 2.0 % [facility] Eosinophils (Bld) [#/Vol] 0 10*3/uL 0.0 - 0.5 10*3/uL [facility] Eosinophils/100 WBC (Bld) 0.4 % 0.0 - 6.0 % [facility] Erythrocyte distribution width (RBC) [Ratio] 13.2 % 11.5 - 15.0 % [facility] Hematocrit (Bld) [Volume fraction] 40.9 % 40.0 - 52.0 % [facility] Hemoglobin (Bld) [Mass/Vol] 13.8 g/dL 13.0 - 18.0 g/dL [facility] Immature granulocytes (Bld) [#/Vol] 0 10*3/uL NINF - 0.1 10*3/uL [facility] Immature granulocytes/100 WBC (Bld) 0.3 % 0.0 - 2.0 % [facility] Interpretation and review of laboratory results Abnormal [facility] Lymphocytes (Bld) [#/Vol] 2 10*3/uL 1.0 - 4.3 10*3/uL [facility] Lymphocytes/100 WBC (Bld) 27.4 % 15.0 - 45.0 % [facility] MCH (RBC) [Entitic mass] 33.1 pg 26.0 - 34.0 pg [facility] MCHC (RBC) [Mass/Vol] 33.7 % 30.5 - 36.0 % [facility] MCV (RBC) [Entitic vol] 98.1 fL 77.0 - 99.0 fL [facility] Monocytes (Bld) [#/Vol] 0.7 10*3/uL 0.0 - 0.9 10*3/uL [facility] Monocytes/100 WBC (Bld) 8.8 % 5.0 - 13.0 % [facility] Neutrophils (Bld) [#/Vol] 4.7 10*3/uL 1.8 - 7.5 10*3/uL [facility] Neutrophils/100 WBC (Bld) 62.7 % 38.0 - 82.0 % [facility] Nucleated RBC/100 WBC (Bld) [Ratio] 0 % [facility] Platelet mean volume (Bld) [Entitic vol] 10.2 fL 9.0 - 12.7 fL [facility] Platelets (Bld) [#/Vol] 246 10*3/uL 140 - 440 10*3/uL [facility] RBC (Bld) [#/Vol] 4.17 10*6/uL Low 4.40 - 5.9 0 10*6/uL [facility] WBC (Bld) [#/Vol] 7.4 10*3/uL 3.6 - 10.7 10*3/uL [facility] CBC WITH AUTO DIFFERENTIALon 08-13-2024 Basophils (Bld) [#/Vol] 0.0 10*3/uL Normal 0.0-0.2 [facility] Comment on above: Performed By: #### L [id number] ####Software Designer: NICOLE [id number])[address] Basophils/100 WBC (Bld) 0.4 % Normal 0.0-2.0 [facility] Comment on above: Performed By: #### L [id number] ####Software Designer: NICOLE [id number])[address] Eosinophils (Bld) [#/Vol] 0.0 10*3/uL Normal 0.0-0.5 [facility] Comment on above: Performed By: #### L [id number] ####Software Designer: NICOLE [id number])[facility])[address] [place] [address] Eosinophils/100 WBC (Bld) 0.4 % Normal 0.0-6.0 [facility] Comment on above: Performed By: #### L [id number] ####Software Designer: NICOLE BOWERS ([id number])[facility])[address] [place] [address] Erythrocyte distribution width (RBC) [Ratio] 13.2 % Normal 11.5-15.0 [facility] Comment on above: Performed By: #### L [id number] ####Software Designer: NICOLE BOWERS ([id number])[facility])[address] [place] [address] Hematocrit (Bld) [Volume fraction] 40.9 % Normal 40.0-52.0 [facility] Comment on above: Performed By: #### L [id number] ####Software Designer: NICOLE BOWERS ([id number])[facility])[address] [place] [address] Hemoglobin (Bld) [Mass/Vol] 13.8 g/dL Normal 13.0-18.0 [facility] Comment on above: Performed By: #### L [id number] ####Software Designer: NICOLE BOWERS ([id number])[facility])[address] [place] [address] IMMATURE GRANS % 0.3 % Normal 0.0-2.0 [facility] Comment on above: Performed By: #### L [id number] ####Software Designer: NICOLE BOWERS ([id number])[facility])[address] [place] [address] IMMATURE GRANS ABSOLUTE 0.0 10*3/uL Normal <0.1 [facility] Comment on above: Performed By: #### L [id number] ####Software Designer: NICOLE BOWERS ([id number])[facility])[address] [place] [address] [place] Lymphocytes (Bld) [#/Vol] 2.0 10*3/uL Normal 1.0-4.3 [facility] Comment on above: Performed By: #### L [id number] ####Software Designer: NICOLE BOWERS ([id number])[facility])[address] [place] [address] Lymphocytes/100 WBC (Bld) 27.4 % Normal 15.0-45.0 [facility] Comment on above: Performed By: #### L [id number] ####Software Designer: NICOLE BOWERS ([id number])[facility])[address] [place] [address] MCH (RBC) [Entitic mass] 33.1 pg Normal 26.0-34.0 [facility] Comment on above: Performed By: #### L [id number] ####Software Designer: NICOLE BOWERS ([id number])[facility])[address] [place] [address] MCHC 33.7 % Normal 30.5-36.0 [facility] Comment on above: Performed By: #### L [id number] ####Software Designer: NICOLE BOWERS ([id number])[facility])[address] [place] [address] MCV (RBC) [Entitic vol] 98.1 fL Normal 77.0-99.0 [facility] Comment on above: Performed By: #### L [id number] ####Software Designer: NICOLE BOWERS ([id number])[facility])[address] [place] [address] Monocytes (Bld) [#/Vol] 0.7 10*3/uL Normal 0.0-0.9 [facility] Comment on above: Performed By: #### L [id number] ####Software Designer: NICOLE BOWERS ([id number])[facility])[address] [place] [address] Monocytes/100 WBC (Bld) 8.8 % Normal 5.0-13.0 [facility] Comment on above: Performed By: #### L [id number] ####Software Designer: NICOLE BOWERS ([id number])[facility] ([facility])[address] [place] [address] NEUTROPHILS ABSOLUTE 4.7 10*3/uL Normal 1.8-7.5 [facility] Comment on above: Performed By: #### L [id number] ####Software Designer: NICOLE BOWERS ([id number])[facility] ([facility])[address] [place] [address] Neutrophils/100 WBC (Bld) 62.7 % Normal 38.0-82.0 [facility] Comment on above: Performed By: #### L [id number] ####Software Designer: NICOLE BOWERS ([id number])[facility])[address] [place] [address] NRBC 0.0 /100 WBCs Normal 0.0-2.0 [facility] Comment on above: Performed By: #### L [id number] ####Software Designer: NICOLE BOWERS ([id number])[facility] ([facility])[address] [place] [address] Platelet mean volume (Bld) [Entitic vol] 10.2 fL Normal 9.0-12.7 [facility] Comment on above: Performed By: #### L [id number] ####Software Designer: NICOLE BOWERS ([id number])[facility] ([facility])[address] [place] [address] [place] Platelets (Bld) [#/Vol] 246 10*3/uL Normal 140-440 [facility] Comment on above: Performed By: #### L [id number] ####Software Designer: NICOLE BOWERS ([id number])[facility])[address] [place] [address] RBC (Bld) [#/Vol] 4.17 10*6/uL Low 4.40-5.90 [facility] Comment on above: Performed By: #### L [id number] ####Software Designer: NICOLE BOWERS ([id number])[facility] ([facility])[address] [place] [address] WBC (Bld) [#/Vol] 7.4 10*3/uL Normal 3.6-10.7 [facility] Comment on above: Performed By: #### L [id number] ####Software Designer: NICOLE BOWERS ([id number])[facility] ([facility])[address] [place] [address] COMPREHENSIVE METABOLIC PANE Ming 08-13-2024 Albumin [Mass/Vol] 3.0 g/dL Low 3.5-5.0 [facility] Comment on above: Performed By: #### L [id number] ####Software Designer: NICOLE BOWERS ([id number])[facility] ([facility])[address] [place] [address] ALP [Catalytic activity/Vol] 232 U/L High 40-150 [facility] Comment on above: Performed By: #### L AB17 ####Software Designer: NICOLE BOWERS ([id number])[facility] ([facility])[address] [place] [address] ALT [Catalytic activity/Vol] 83 U/L High <40 [facility] Comment on above: Performed By: #### L AB17 ####Software Designer: NICOLE BOWERS ([id number])[facility] ([facility])[address] [place] [address] Anion gap [Moles/Vol] 11 mmol/L Normal 3-13 [facility] Comment on above: Performed By: #### L AB17 ####Software Designer: NICOLE BOWERS ([id number])[facility] ([facility])[address] [place] [address] AST [Catalytic activity/Vol] 38 U/L High <34 [facility] Comment on above: Performed By: #### L AB17 ####Software Designer: NICOLE BOWERS ([id number])[facility] ([facility])[address] [place] [address] Bilirubin [Mass/Vol] 2.9 mg/dL High <1.2 [facility] Comment on above: Performed By: #### L AB17 ####Software Designer: NICOLE BOWERS ([id number])[facility] ([facility])[address] [place] [address] Calcium [Mass/Vol] 8.4 mg/dL Normal 8.4-10.2 [facility] Comment on above: Performed By: #### L AB17 ####Software Designer: NICOLE BOWERS ([id number])[facility] ([facility])[address] [place] [address] [place] Chloride [Moles/Vol] 105 mmol/L Normal 98-107 [facility] Comment on above: Performed By: #### L AB17 ####Software Designer: NICOLE BOWERS ([id number])[facility] ([facility])[address] [place] [address] CO2 [Moles/Vol] 20 mmol/L Low 22-29 [facility] Comment on above: Performed By: #### L AB17 ####Software Designer: NICOLE BOWERS ([id number])[facility] ([facility])[address] [place] [address] [place] Creatinine [Mass/Vol] 2.24 mg/dL High 0.72-1.25 [facility] Comment on above: Performed By: #### L [id number] ####Software Designer: NICOLE BOWERS ([id number])[facility] ([facility])[address] [place] [address] [place] GLOMERULAR FILTRATION RATE ML/MIN/1.73 SQ M.PREDICTED 35.7 mL/min/1.73m*2 Low >60.0 [facility] Comment on above: Result Comment: Calc ulation based on the Chronic Kidney Disease Epidemiology Collaboration (CKD-EPI) equation refit without adjustment for race Performed By: #### L [id number] ####Software Designer: NICOLE BOWERS ([id number])[facility] ([facility])[address] [place] [address] [place] Glucose [Mass/Vol] 165 mg/dL High 74-100 [facility] Comment on above: Performed By: #### L [id number] ####Software Designer: NICOLE BOWERS ([id number])[facility])[address] [place] [address] Potassium [Moles/Vol] 3.7 mmol/L Normal 3.5-5.1 [facility] Comment on above: Result Comment: [facility] potassium values may be up to 0.5 mmol/L lower than serum values. Performed By: #### L [id number] ####Software Designer: NICOLE BOWERS ([id number])[facility] ([facility])[address] [place] [address] Protein [Mass/Vol] 5.7 g/dL Low 6.4-8.3 [facility] Comment on above: Performed By: #### L [id number] ####Software Designer: NICOLE BOWERS ([id number])[facility])[address] [place] [address] Sodium [Moles/Vol] 136 mmol/L Normal 136-145 [facility] Comment on above: Performed By: #### L [id number] ####Software Designer: NICOLE BOWERS ([id number])[facility] ([facility])[address] [place] [address] Urea nitrogen [Mass/Vol] 47 mg/dL High 8-21 [facility] Comment on above: Performed By: #### L [id number] ####Software Designer: NICOLE BOWERS ([id number])[facility])[address] [place] [address] Comprehensive metabolic 1998 panelon 08-13-2024 Albumin [Mass/Vol] 3 g/dL Low 3.5 - 5.0 g/dL [facility] ALP [Catalytic activity/Vol] 232 U/L High 40 - 150 U/L [facility] ALT [Catalytic activity/Vol] 83 U/L High NINF - 40 U/L [facility] Anion gap [Moles/Vol] 11 mmol/L 3 - 13 mmol/L [facility] AST [Catalytic activity/Vol] 38 U/L High NINF - 34 U/L [facility] Bilirubin [Mass/Vol] 2.9 mg/dL High NINF - 1.2 mg/dL [facility] Calcium [Mass/Vol] 8.4 mg/dL 8.4 - 10. 2 mg/dL [facility] Chloride [Moles/Vol] 105 mmol/L 98 - 10 7 mmol/L [facility] CO2 [Moles/Vol] 20 mmol/L Low 22 - 29 mmol/L [facility] Creatinine [Mass/Vol] 2.24 mg/dL High 0.72 - 1.25 mg/dL [facility] GFR/1.73 sq M.predicted (S/P/Bld) [Vol rate/Area] 35.7 mL/min Low - PINF [facility] Glucose [Mass/Vol] 165 mg/dL High 74 - 100 mg/dL [facility] Interpretation and review of laboratory results Abnormal [facility] Potassium [Moles/Vol] 3.7 mmol/L 3.5 - 5.1 mmol/L [facility] Protein [Mass/Vol] 5.7 g/dL Low 6.4 - 8.3 g/dL [facility] Sodium [Moles/Vol] 136 mmol/L 136 - 145 mmol/L [facility] Urea nitrogen [Mass/Vol] 47 mg/dL High 8 - 21 mg/dL [facility] LACTIC ACID WITH REFLEXon Lactate [Moles/Vol] 1.9 mmol/L Normal 0.5-2.2 [facility] Comment on above: Performed By: #### L [id number] ####Software Designer: NICOLE BOWERS ([id number])[address] Laboratory - Chemistry and C hemistry - challengeon 08-13-2024 Lactate [Moles/Vol] 1.9 mmol/L 0.5 - 2. 2 mmol/L [facility] No Panel Informationon 08-13 Interpretation and review of laboratory results Normal [facility] Nursing Noteon 08-13-2024 Nursing Note RN notified Dr. Demarco rai that patient is refusing all labs this morning. Normal [facility] Progress Noteon 08-13-2024 Progress Note Normal [facility] Progress Note Normal [facility] Progress Note Normal [facility] Progress Note Normal [facility] [id number] 08-12-2024 [id number] Normal [facility] 30on 08-12-2024 30 Normal [facility] [id number] 08-12-2024 [id number] Informed pt that we do not take his insurance. Can only go to [facility]. Made Dr aware, he is waiting for a return call to see if we can transfer. . [facility] CBC W Auto Differential pane l (Bld)on 08-12-2024 Basophils (Bld) [#/Vol] 0 10*3/uL 0.0 - 0.2 10*3/uL [facility] Basophils/100 WBC (Bld) 0.5 % 0.0 - 2.0 % [facility] Eosinophils (Bld) [#/Vol] 0 10*3/uL 0.0 - 0.5 10*3/uL [facility] Eosinophils/100 WBC (Bld) 0.2 % 0.0 - 6.0 % [facility] Erythrocyte distribution width (RBC) [Ratio] 13.2 % 11.5 - 15.0 % [facility] Hematocrit (Bld) [Volume fraction] 42.2 % 40.0 - 52.0 % [facility] Hemoglobin (Bld) [Mass/Vol] 14 g/dL 13.0 - 18.0 g/dL [facility] Immature granulocytes (Bld) [#/Vol] 0 10*3/uL NINF - 0.1 10*3/uL [facility] Immature granulocytes/100 WBC (Bld) 0.2 % 0.0 - 2.0 % [facility] Interpretation and review of laboratory results Abnormal [facility] Lymphocytes (Bld) [#/Vol] 2.7 10*3/uL 1.0 - 4.3 10*3/uL [facility] Lymphocytes/100 WBC (Bld) 34.1 % 15.0 - 45.0 % [facility] MCH (RBC) [Entitic mass] 33.5 pg 26.0 - 34.0 pg [facility] MCHC (RBC) [Mass/Vol] 33.2 % 30.5 - 36.0 % [facility] MCV (RBC) [Entitic vol] 101 fL High 77.0 - 99.0 fL [facility] [employer] Monocytes (Bld) [#/Vol] 0.7 10*3/uL 0.0 - 0.9 10*3/uL [facility] Health Monocytes/100 WBC (Bld) 9.2 % 5.0 - 13.0 % [facility] [employer] Neutrophils (Bld) [#/Vol] 4.5 10*3/uL 1.8 - 7.5 10*3/uL [facility] Neutrophils/100 WBC (Bld) 55.8 % 38.0 - 82.0 % [facility] [employer] Nucleated RBC/100 WBC (Bld) [Ratio] 0.2 % [facility] [employer] Platelet mean volume (Bld) [Entitic vol] 10.5 fL 9.0 - 12.7 fL [facility] [employer] Platelets (Bld) [#/Vol] 263 10*3/uL 140 - 440 10*3/uL [facility] [employer] RBC (Bld) [#/Vol] 4.18 10*6/uL Low 4.40 - 5.9 0 10*6/uL [facility] [employer] WBC (Bld) [#/Vol] 8 10*3/uL 3.6 - 10.7 10*3/uL [facility] CBC WITH AUTO DIFFERENTIALon 08-12-2024 Basophils (Bld) [#/Vol] 0.0 10*3/uL Normal 0.0-0.2 [facility] Comment on above: Performed By: #### L [id number] ####Software Designer: NICOLE BOWERS ([id number])[address] Basophils/100 WBC (Bld) 0.5 % Normal 0.0-2.0 [facility] Comment on above: Performed By: #### L [id number] ####Software Designer: NICOLE BOWERS ([id number])[address] Eosinophils (Bld) [#/Vol] 0.0 10*3/uL Normal 0.0-0.5 [facility] Comment on above: Performed By: #### L [id number] ####Software Designer: NICOLE BOWERS ([id number])[facility])[address] [place] [address] Eosinophils/100 WBC (Bld) 0.2 % Normal 0.0-6.0 [facility] Comment on above: Performed By: #### L [id number] ####Software Designer: NICOLE BOWERS ([id number])[facility])[address] [place] [address] Erythrocyte distribution width (RBC) [Ratio] 13.2 % Normal 11.5-15.0 [facility] Comment on above: Performed By: #### L [id number] ####Software Designer: NICOLE BOWERS ([id number])[facility])[address] [place] [address] Hematocrit (Bld) [Volume fraction] 42.2 % Normal 40.0-52.0 [facility] Comment on above: Performed By: #### L [id number] ####Software Designer: NICOLE BOWERS ([id number])[facility])[address] [place] [address] Hemoglobin (Bld) [Mass/Vol] 14.0 g/dL Normal 13.0-18.0 [facility] Comment on above: Performed By: #### L [id number] ####Software Designer: NICOLE BOWERS ([id number])[facility])[address] [place] [address] IMMATURE GRANS % 0.2 % Normal 0.0-2.0 [facility] Comment on above: Performed By: #### L [id number] ####Software Designer: NICOLE BOWERS ([id number])[facility])[address] [place] [address] IMMATURE GRANS ABSOLUTE 0.0 10*3/uL Normal <0.1 [facility] Comment on above: Performed By: #### L [id number] ####Software Designer: NICOLE BOWERS ([id number])[facility])[address] [place] [address] [place] Lymphocytes (Bld) [#/Vol] 2.7 10*3/uL Normal 1.0-4.3 [facility] Comment on above: Performed By: #### L [id number] ####Software Designer: NICOLE BOWERS ([id number])[facility])[address] [place] [address] Lymphocytes/100 WBC (Bld) 34.1 % Normal 15.0-45.0 [facility] Comment on above: Performed By: #### L [id number] ####Software Designer: NICOLE BOWERS ([id number])[facility])[address] [place] [address] MCH (RBC) [Entitic mass] 33.5 pg Normal 26.0-34.0 [facility] Comment on above: Performed By: #### L [id number] ####Software Designer: NICOLE BOWERS ([id number])[facility])[address] [place] [address] MCHC 33.2 % Normal 30.5-36.0 [facility] Comment on above: Performed By: #### L [id number] ####Software Designer: NICOLE BOWERS ([id number])[facility])[address] [place] [address] MCV (RBC) [Entitic vol] 101.0 fL High 77.0-99.0 [facility] Comment on above: Performed By: #### L [id number] ####Software Designer: NICOLE BOWERS ([id number])[facility])[address] [place] [address] Monocytes (Bld) [#/Vol] 0.7 10*3/uL Normal 0.0-0.9 [facility] Comment on above: Performed By: #### L [id number] ####Software Designer: NICOLE BOWERS ([id number])[facility])[address] [place] [address] Monocytes/100 WBC (Bld) 9.2 % Normal 5.0-13.0 [facility] Comment on above: Performed By: #### L [id number] ####Software Designer: NICOLE BOWERS ([id number])[facility] ([facility])[address] [place] [address] NEUTROPHILS ABSOLUTE 4.5 10*3/uL Normal 1.8-7.5 [facility] Comment on above: Performed By: #### L [id number] ####Software Designer: NICOLE BOWERS ([id number])[facility] ([facility])[address] [place] [address] Neutrophils/100 WBC (Bld) 55.8 % Normal 38.0-82.0 [facility] Comment on above: Performed By: #### L [id number] ####Software Designer: NICOLE BOWERS ([id number])[facility] ([facility])[address] [place] [address] NRBC 0.2 /100 WBCs Normal 0.0-2.0 [facility] Comment on above: Performed By: #### L [id number] ####Software Designer: NICOLE BOWERS ([id number])[facility] ([facility])[address] [place] [address] Platelet mean volume (Bld) [Entitic vol] 10.5 fL Normal 9.0-12.7 [facility] Comment on above: Performed By: #### L [id number] ####Software Designer: NICOLE BOWERS ([id number])[facility] ([facility])[address] [place] [address] [place] Platelets (Bld) [#/Vol] 263 10*3/uL Normal 140-440 [facility] Comment on above: Performed By: #### L [id number] ####Software Designer: NICOLE BOWERS ([id number])[facility])[address] [place] [address] RBC (Bld) [#/Vol] 4.18 10*6/uL Low 4.40-5.90 [facility] Comment on above: Performed By: #### L [id number] ####Software Designer: NICOLE BOWERS ([id number])[facility] ([facility])[address] [place] [address] WBC (Bld) [#/Vol] 8.0 10*3/uL Normal 3.6-10.7 [facility] Comment on above: Performed By: #### L [id number] ####Software Designer: NICOLE BOWERS ([id number])[facility] ([facility])[address] [place] [address] COMPREHENSIVE METABOLIC PANE Ming 08-12-2024 Albumin [Mass/Vol] 2.8 g/dL Low 3.5-5.0 [facility] Comment on above: Performed By: #### L [id number] ####Software Designer: NICOLE BOWERS ([id number])[facility] ([facility])[address] [place] [address] ALP [Catalytic activity/Vol] 225 U/L High 40-150 [facility] Comment on above: Performed By: #### L [id number] ####Software Designer: NICOLE BOWERS ([id number])[facility] ([facility])[address] [place] [address] ALT [Catalytic activity/Vol] 86 U/L High <40 [facility] Comment on above: Performed By: #### L [id number] ####Software Designer: NICOLE BOWERS ([id number])[facility] ([facility])[address] [place] [address] Anion gap [Moles/Vol] 11 mmol/L Normal 3-13 [facility] Comment on above: Performed By: #### L [id number] ####Software Designer: NICOLE BOWERS ([id number])[facility] ([facility])[address] [place] [address] AST [Catalytic activity/Vol] 47 U/L High <34 [facility] Comment on above: Performed By: #### L [id number] ####Software Designer: NICOLE BOWERS ([id number])[facility] ([facility])[address] [place] [address] Bilirubin [Mass/Vol] 2.0 mg/dL High <1.2 [facility] Comment on above: Performed By: #### L [id number] ####Software Designer: NICOLE BOWERS ([id number])[facility])[address] [place] [address] Calcium [Mass/Vol] 8.2 mg/dL Low 8.4-10.2 [facility] Comment on above: Performed By: #### L [id number] ####Software Designer: NICOLE BOWERS ([id number])[facility] ([facility])[address] [place] [address] Chloride [Moles/Vol] 106 mmol/L Normal 98-107 [facility] Comment on above: Performed By: #### L [id number] ####Software Designer: NICOLE BOWERS ([id number])[facility] ([facility])[address] [place] [address] CO2 [Moles/Vol] 19 mmol/L Low 22-29 [facility] Comment on above: Performed By: #### L [id number] ####Software Designer: NICOLE BOWERS ([id number])[facility] ([facility])[address] [place] [address] Creatinine [Mass/Vol] 2.23 mg/dL High 0.72-1.25 [facility] Comment on above: Performed By: #### L [id number] ####Software Designer: NICOLE BOWERS ([id number])[facility] ([facility])[address] [place] [address] [place] GLOMERULAR FILTRATION RATE ML/MIN/1.73 SQ M.PREDICTED 35.9 mL/min/1.73m*2 Low >60.0 [facility] Comment on above: Result Comment: Calc ulation based on the Chronic Kidney Disease Epidemiology Collaboration (CKD-EPI) equation refit without adjustment for race Performed By: #### L [id number] ####Software Designer: NICOLE BOWERS ([id number])[facility] ([facility])[address] [place] [address] [place] Glucose [Mass/Vol] 118 mg/dL High 74-100 [facility] Comment on above: Performed By: #### L [id number] ####Software Designer: NICOLE BOWERS ([id number])[facility])[address] [place] [address] Potassium [Moles/Vol] 4.3 mmol/L Normal 3.5-5.1 [facility] Comment on above: Result Comment: [facility] potassium values may be up to 0.5 mmol/L lower than serum values. Performed By: #### L [id number] ####Software Designer: NICOLE BOWERS ([id number])[facility] ([facility])[address] [place] [address] Protein [Mass/Vol] 5.5 g/dL Low 6.4-8.3 [facility] Comment on above: Performed By: #### L [id number] ####Software Designer: NICOLE BOWERS ([id number])[facility])[address] [place] [address] Sodium [Moles/Vol] 136 mmol/L Normal 136-145 [facility] Comment on above: Performed By: #### L [id number] ####Software Designer: NICOLE BOWERS ([id number])[facility])[address] [place] [address] Urea nitrogen [Mass/Vol] 42 mg/dL High 8-21 [facility] Comment on above: Performed By: #### L [id number] ####Software Designer: NICOLE BOWERS ([id number])[facility])[address] [place] [address] Comprehensive metabolic 1998 panelon 08-12-2024 Albumin [Mass/Vol] 2.8 g/dL Low 3.5 - 5.0 g/dL [facility] ALP [Catalytic activity/Vol] 225 U/L High 40 - 150 U/L [facility] ALT [Catalytic activity/Vol] 86 U/L High NINF - 40 U/L [facility] Anion gap [Moles/Vol] 11 mmol/L 3 - 13 mmol/L [facility] AST [Catalytic activity/Vol] 47 U/L High NINF - 34 U/L [facility] Bilirubin [Mass/Vol] 2 mg/dL High NINF - 1.2 mg/dL [facility] Calcium [Mass/Vol] 8.2 mg/dL Low 8.4 - 10. 2 mg/dL [facility] Chloride [Moles/Vol] 106 mmol/L 98 - 10 7 mmol/L [facility] CO2 [Moles/Vol] 19 mmol/L Low 22 - 29 mmol/L [facility] Creatinine [Mass/Vol] 2.23 mg/dL High 0.72 - 1.25 mg/dL [facility] GFR/1.73 sq M.predicted (S/P/Bld) [Vol rate/Area] 35.9 mL/min Low - PINF [facility] Glucose [Mass/Vol] 118 mg/dL High 74 - 100 mg/dL [facility] Interpretation and review of laboratory results Abnormal [facility] Potassium [Moles/Vol] 4.3 mmol/L 3.5 - 5.1 mmol/L [facility] Protein [Mass/Vol] 5.5 g/dL Low 6.4 - 8.3 g/dL [facility] Sodium [Moles/Vol] 136 mmol/L 136 - 145 mmol/L [facility] Urea nitrogen [Mass/Vol] 42 mg/dL High 8 - 21 mg/dL [facility] LACTIC ACID WITH REFLEXon Lactate [Moles/Vol] 2.1 mmol/L Normal 0.5-2.2 [facility] Comment on above: Performed By: #### L [id number] ####Software Designer: NICOLE BOWERS ([id number])[address] Lactate [Moles/Vol] 2.4 mmol/L High 0.5-2.2 [facility] Comment on above: Performed By: #### L [id number] ####Software Designer: NICOLE BOWERS ([id number])[address] Laboratory - Chemistry and C hemistry - challengeon 08-12-2024 Lactate [Moles/Vol] 2.1 mmol/L 0.5 - 2. 2 mmol/L [facility] Lactate [Moles/Vol] 2.4 mmol/L High 0.5 - 2. 2 mmol/L [facility] NT PRO BNPon 08-12-2024 Natriuretic peptide B (Bld) [Mass/Vol] 16457 pg/mL High <125 [facility] Comment on above: Performed By: #### L [id number] ####Software Designer: NICOLE BOWERS ([id number])[facility])[address] [place] [address] [place] Natriuretic peptide B [Mass/ Vol]on 08-12-2024 Interpretation and review of laboratory results Abnormal [facility] Natriuretic peptide B (Bld) [Mass/Vol] 84055 pg/mL High NINF - 125 pg/mL [facility] No Panel Informationon 08-12 Interpretation and review of laboratory results Normal [facility] Interpretation and review of laboratory results Abnormal [facility] Progress Noteon 08-12-2024 Progress Note Normal [facility] Progress Note Normal [facility] Progress Note Normal [facility] Telephone Encounteron 2024 [employer] Authentication Interface Message Text Normal [facility] [id number] 08-11-2024 [id number] Normal [facility] 30on 08-11-2024 30 Progressing Normal [facility] 30 Normal [facility] 30 Progressing Normal [facility] [id number] 08-11-2024 [id number] 30 day re-admit completed. Normal [facility] BLOOD GAS, VENOUSon 08-11-19 25 Base excess Calc (BldV) [Moles/Vol] -1.3000 mmol/L Normal -3.0-3.0 [facility] Comment on above: Performed By: #### L [id number] ####Software Designer: NICOLE BOWERS ([id number])[facility] ([facility])[address] [place] [address] CO2 [Moles/Vol] 22.0 mmol/L Low 24.0-28.0 [facility] Comment on above: Performed By: #### L [id number] ####Software Designer: NICOLE BOWERS ([id number])[facility] [place] [address] HCO3 (Bld) [Moles/Vol] 21.1 mmol/L Low 23.0-27.0 [facility] Comment on above: Performed By: #### L [id number] ####Software Designer: NICOLE BOWERS ([id number])[facility] ([facility])[address] [place] [address] Hemoglobin (Bld) [Mass/Vol] 15.0 g/dL Normal Screen only [facility] Comment on above: Performed By: #### L [id number] ####Software Designer: NICOLE BOWERS ([id number])[facility] ([facility])[address] [place] [address] OXYGEN (MM HG) IN VENOUS BLOOD 120.8 mm Hg Normal [facility] Comment on above: Performed By: #### L [id number] ####Software Designer: NICOLE BOWERS ([id number])[facility] ([facility])[address] [place] [address] OXYGEN SATURATION (%) IN VENOUS BLOOD 98.6 % Normal [facility] Comment on above: Performed By: #### L [id number] ####Software Designer: NICOLE BOWERS ([id number])[facility] ([facility])[address] [place] [address] PCO2, JAZ 29.6 mm Hg Low 40.0-55.0 [facility] Comment on above: Performed By: #### L [id number] ####Software Designer: NICOLE BOWERS ([id number])[facility] ([facility])[address] [place] [address] PH VENOUS 7.470 High 7.330-7.430 [facility] Comment on above: Performed By: #### L [id number] ####Software Designer: NICOLE BOWERS ([id number])[facility] ([facility])[address] [place] [address] SOURCE OF OXYGEN Room Air Normal [facility] Comment on above: Result Comment: ALEJANDRO Aleman COMMENTS:Assessment of oxygenation is best done with an arterial blood gas determination. Reference ranges for pO2, bicarbonate, and base excess are for mixed venous blood. Specimens drawn from a peripheral vein will often have higher values.Interpret with caution, pO2 value falsely increased due to vacuum in tube. For accurate results, please draw on a heparinized syringe. Performed By: #### L AB79 ####Software Designer: NICOLE BOWERS ([id number])[facility] ([facility] CBC W Auto Differential pane l (Bld)on 08-11-2024 Basophils (Bld) [#/Vol] 0 10*3/uL 0.0 - 0.2 10*3/uL [employer] [facility] [employer] Basophils/100 WBC (Bld) 0.4 % 0.0 - 2.0 % [facility] [employer] Eosinophils (Bld) [#/Vol] 0 10*3/uL 0.0 - 0.5 10*3/uL [employer] Eosinophils/100 WBC (Bld) 0.2 % 0.0 - 6.0 % [employer] [employer] Erythrocyte distribution width (RBC) [Ratio] 13 % 11.5 - 15.0 % [employer] [employer] Hematocrit (Bld) [Volume fraction] 42 % 40.0 - 52.0 % [employer] Hemoglobin (Bld) [Mass/Vol] 13.9 g/dL 13.0 - 18.0 g/dL [employer] [facility] Immature granulocytes (Bld) [#/Vol] 0 10*3/uL NINF - 0.1 10*3/uL [employer] Immature granulocytes/100 WBC (Bld) 0.2 % 0.0 - 2.0 % [employer] Interpretation and review of laboratory results Abnormal [employer] [facility] Lymphocytes (Bld) [#/Vol] 2.8 10*3/uL 1.0 - 4.3 10*3/uL [employer] [facility] Lymphocytes/100 WBC (Bld) 33.6 % 15.0 - 45.0 % [employer] [facility] MCH (RBC) [Entitic mass] 33.1 pg 26.0 - 34.0 pg [employer] [facility] MCHC (RBC) [Mass/Vol] 33.1 % 30.5 - 36.0 % [employer] MCV (RBC) [Entitic vol] 100 fL High 77.0 - 99.0 fL [facility] Monocytes (Bld) [#/Vol] 0.6 10*3/uL 0.0 - 0.9 10*3/uL [facility] Monocytes/100 WBC (Bld) 7.3 % 5.0 - 13.0 % [facility] Neutrophils (Bld) [#/Vol] 4.8 10*3/uL 1.8 - 7.5 10*3/uL [facility] Neutrophils/100 WBC (Bld) 58.3 % 38.0 - 82.0 % [facility] Nucleated RBC/100 WBC (Bld) [Ratio] 0 % [facility] Platelet mean volume (Bld) [Entitic vol] 10.3 fL 9.0 - 12.7 fL [facility] Platelets (Bld) [#/Vol] 243 10*3/uL 140 - 440 10*3/uL [facility] RBC (Bld) [#/Vol] 4.2 10*6/uL Low 4.40 - 5.9 0 10*6/uL [facility] WBC (Bld) [#/Vol] 8.2 10*3/uL 3.6 - 10.7 10*3/uL [facility] CBC WITH AUTO DIFFERENTIALon 08-11-2024 Basophils (Bld) [#/Vol] 0.0 10*3/uL Normal 0.0-0.2 [facility] Comment on above: Performed By: #### L [id number] ####Software Designer: NICOLE [id number])[address] Basophils/100 WBC (Bld) 0.4 % Normal 0.0-2.0 [facility] Comment on above: Performed By: #### L [id number] ####Software Designer: NICOLE [id number])[address] Eosinophils (Bld) [#/Vol] 0.0 10*3/uL Normal 0.0-0.5 [facility] Comment on above: Performed By: #### L [id number] ####Software Designer: NICOLE [id number])[facility])[address] [place] [address] Eosinophils/100 WBC (Bld) 0.2 % Normal 0.0-6.0 [facility] Comment on above: Performed By: #### L [id number] ####Software Designer: NICOLE BOWERS ([id number])[facility])[address] [place] [address] Erythrocyte distribution width (RBC) [Ratio] 13.0 % Normal 11.5-15.0 [facility] Comment on above: Performed By: #### L [id number] ####Software Designer: NICOLE BOWERS ([id number])[facility])[address] [place] [address] Hematocrit (Bld) [Volume fraction] 42.0 % Normal 40.0-52.0 [facility] Comment on above: Performed By: #### L [id number] ####Software Designer: NICOLE BOWERS ([id number])[facility])[address] [place] [address] Hemoglobin (Bld) [Mass/Vol] 13.9 g/dL Normal 13.0-18.0 [facility] Comment on above: Performed By: #### L [id number] ####Software Designer: NICOLE BWOERS ([id number])[facility])[address] [place] [address] IMMATURE GRANS % 0.2 % Normal 0.0-2.0 [facility] Comment on above: Performed By: #### L [id number] ####Software Designer: NICOLE BOWERS ([id number])[facility])[address] [place] [address] IMMATURE GRANS ABSOLUTE 0.0 10*3/uL Normal <0.1 [facility] Comment on above: Performed By: #### L [id number] ####Software Designer: NICOLE BOWERS ([id number])[facility])[address] [place] [address] Lymphocytes (Bld) [#/Vol] 2.8 10*3/uL Normal 1.0-4.3 [facility] Comment on above: Performed By: #### L [id number] ####Software Designer: NICOLE BOWERS ([id number])[facility])[address] [place] [address] Lymphocytes/100 WBC (Bld) 33.6 % Normal 15.0-45.0 [facility] Comment on above: Performed By: #### L [id number] ####Software Designer: NICOLE BOWERS ([id number])[facility])[address] [place] [address] MCH (RBC) [Entitic mass] 33.1 pg Normal 26.0-34.0 [facility] Comment on above: Performed By: #### L [id number] ####Software Designer: NICOLE BOWERS ([id number])[facility])[address] [place] [address] MCHC 33.1 % Normal 30.5-36.0 [facility] Comment on above: Performed By: #### L [id number] ####Software Designer: NICOLE BOWERS ([id number])[facility])[address] [place] [address] MCV (RBC) [Entitic vol] 100.0 fL High 77.0-99.0 [facility] Comment on above: Performed By: #### L [id number] ####Software Designer: NICOLE BOWERS ([id number])[facility])[address] [place] [address] Monocytes (Bld) [#/Vol] 0.6 10*3/uL Normal 0.0-0.9 [facility] Comment on above: Performed By: #### L [id number] ####Software Designer: NICOLE BOWERS ([id number])[facility])[address] [place] [address] Monocytes/100 WBC (Bld) 7.3 % Normal 5.0-13.0 [facility] Comment on above: Performed By: #### L [id number] ####Software Designer: NICOLE BOWERS ([id number])[facility] ([facility])[address] [place] [address] NEUTROPHILS ABSOLUTE 4.8 10*3/uL Normal 1.8-7.5 [facility] Comment on above: Performed By: #### L [id number] ####Software Designer: NICOLE BOWERS ([id number])[facility] ([facility])[address] [place] [address] Neutrophils/100 WBC (Bld) 58.3 % Normal 38.0-82.0 [facility] Comment on above: Performed By: #### L [id number] ####Software Designer: NICOLE BOWERS ([id number])[facility])[address] [place] [address] NRBC 0.0 /100 WBCs Normal 0.0-2.0 [facility] Comment on above: Performed By: #### L [id number] ####Software Designer: NICOLE BOWERS ([id number])[facility] ([facility])[address] [place] [address] Platelet mean volume (Bld) [Entitic vol] 10.3 fL Normal 9.0-12.7 [facility] Comment on above: Performed By: #### L [id number] ####Software Designer: NICOLE BOWERS ([id number])[facility] ([facility])[address] [place] [address] Platelets (Bld) [#/Vol] 243 10*3/uL Normal 140-440 [facility] Comment on above: Performed By: #### L [id number] ####Software Designer: NICOLE BOWERS ([id number])[facility] ([facility])[address] [place] [address] RBC (Bld) [#/Vol] 4.20 10*6/uL Low 4.40-5.90 [facility] Comment on above: Performed By: #### L [id number] ####Software Designer: NICOLE BOWERS ([id number])[facility] ([facility])[address] [place] [address] WBC (Bld) [#/Vol] 8.2 10*3/uL Normal 3.6-10.7 [facility] Comment on above: Performed By: #### L [id number] ####Software Designer: NICOLE BOWERS ([id number])[facility])[address] [place] [address] COMPLETE URINALYSISon 2024 BILIRUBIN, TOTAL PRESENCE IN URINE Negative Normal Negative [facility] Comment on above: Performed By: #### L [id number] ####Software Designer: NICOLE BOWERS ([id number])[facility])[address] [place] [address] Clarity (U) Clear Normal Clear [facility] Comment on above: Performed By: #### L [id number] ####Software Designer: NICOLE BOWERS ([id number])[address] Color (U) Light Yellow Normal Lt. Yellow [facility] Comment on above: Performed By: #### L [id number] ####Software Designer: NICOLE BOWERS ([id number])[address] GLUCOSE (MG/DL) IN URINE Normal Normal Normal (<70) [facility] Comment on above: Performed By: #### L [id number] ####Software Designer: NICOLE BOWERS ([id number])[facility])[address] [place] [address] HEMOGLOBIN PRESENCE IN URINE Negative Normal Negative [facility] Comment on above: Performed By: #### L [id number] ####Software Designer: NICOLE BOWERS ([id number])[address] Ketones Ql (U) Negative Normal Negative [facility] Comment on above: Performed By: #### L [id number] ####Software Designer: NICOLE BOWERS ([id number])[facility] ([facility])[address] [place] [address] LEUKOCYTE ESTERASE PRESENCE IN URINE BY TEST STRIP Negative Normal Negative [facility] Comment on above: Performed By: #### L [id number] ####Software Designer: NICOLE BOWERS ([id number])[facility])[address] [place] [address] NITRITE PRESENCE IN URINE Negative Normal Negative [facility] Comment on above: Performed By: #### L [id number] ####Software Designer: NICOLE BOWERS ([id number])[facility])[address] [place] [address] pH (U) 5.0 [pH] Normal 5.0-8.0 [facility] Comment on above: Performed By: #### L [id number] ####Software Designer: NICOLE BOWERS ([id number])[facility])[address] [place] [address] Protein (U) [Mass/Vol] Negative Normal Negative [facility] Comment on above: Performed By: #### L [id number] ####Software Designer: NICOLE BOWERS ([id number])[facility])[address] [place] [address] Specific gravity (U) [Rel density] 1.007 Normal 1.005-1.030 [facility] Comment on above: Performed By: #### L [id number] ####Software Designer: NICOLE BOWERS ([id number])[facility])[address] [place] [address] UROBILINOGEN (MG/DL) IN URINE Normal Normal Normal (0-1) [facility] Comment on above: Performed By: #### L [id number] ####Software Designer: NICOLE BOWERS ([id number])[facility])[address] [place] [address] COMPREHENSIVE METABOLIC PANE Ming 08-11-2024 Albumin [Mass/Vol] 3.0 g/dL Low 3.5-5.0 [facility] Comment on above: Performed By: #### L [id number], LAB17 ####Software Designer: NICOLE BOWERS ([id number])[facility] [place] [address] [place] ALP [Catalytic activity/Vol] 201 U/L High 40-150 [facility] Comment on above: Performed By: #### L [id number], LAB17 ####Software Designer: NICOLE BOWERS ([id number])[facility] [place] [address] [place] ALT [Catalytic activity/Vol] 86 U/L High <40 [facility] Comment on above: Performed By: #### L [id number], LAB17 ####Software Designer: NICOLE BOWERS ([id number])[facility] ([facility])[address] [place] [address] Anion gap [Moles/Vol] 10 mmol/L Normal 3-13 [facility] Comment on above: Performed By: #### L [id number], LAB17 ####Software Designer: NICOLE BOWERS ([id number])[facility] [place] [address] AST [Catalytic activity/Vol] 47 U/L High <34 [facility] Comment on above: Performed By: #### L [id number], LAB17 ####Software Designer: NICOLE BOWERS ([id number])[facility] ([facility])[address] [place] [address] [place] Bilirubin [Mass/Vol] 2.6 mg/dL High <1.2 [facility] Comment on above: Performed By: #### L [id number], LAB17 ####Software Designer: NICOLE BOWERS ([id number])[facility] ([facility])[address] [place] [address] Calcium [Mass/Vol] 8.4 mg/dL Normal 8.4-10.2 [facility] Comment on above: Performed By: #### L [id number], LAB17 ####Software Designer: NICOLE BOWERS ([id number])[facility] ([facility])[address] [place] [address] Chloride [Moles/Vol] 102 mmol/L Normal 98-107 [facility] Comment on above: Performed By: #### L [id number], LAB17 ####Software Designer: NICOLE BOWERS ([id number])[facility])[address] [place] [address] CO2 [Moles/Vol] 18 mmol/L Low 22-29 [facility] Comment on above: Performed By: #### L [id number], LAB17 ####Software Designer: NICOLE BOWERS ([id number])[facility])[address] [place] [address] Creatinine [Mass/Vol] 1.80 mg/dL High 0.72-1.25 [facility] Comment on above: Performed By: #### L [id number], LAB17 ####Software Designer: NICOLE BOWERS ([id number])[facility])[address] [place] [address] GLOMERULAR FILTRATION RATE ML/MIN/1.73 SQ M.PREDICTED 46.4 mL/min/1.73m*2 Low >60.0 [facility] Comment on above: Result Comment: Calc ulation based on the Chronic Kidney Disease Epidemiology Collaboration (CKD-EPI) equation refit without adjustment for race Performed By: #### L [id number], LAB17 ####Software Designer: NICOLE BOWERS ([id number])[facility] ([facility])[address] [place] [address] Glucose [Mass/Vol] 94 mg/dL Normal 74-100 [facility] Comment on above: Performed By: #### L [id number], LAB17 ####Software Designer: NICOLE BOWERS ([id number])[facility])[address] [place] [address] Potassium [Moles/Vol] 4.0 mmol/L Normal 3.5-5.1 [facility] Comment on above: Result Comment: [facility] potassium values may be up to 0.5 mmol/L lower than serum values. Performed By: #### L [id number], LAB17 ####Software Designer: NICOLE BOWERS ([id number])[facility] [place] [address] Protein [Mass/Vol] 5.6 g/dL Low 6.4-8.3 [facility] Comment on above: Performed By: #### L [id number], LAB17 ####Software Designer: NICOLE BOWERS ([id number])[facility] [place] [address] Sodium [Moles/Vol] 130 mmol/L Low 136-145 [facility] Comment on above: Performed By: #### L [id number], LAB17 ####Software Designer: NICOLE BOWERS ([id number])[facility] ([facility])[address] [place] [address] Urea nitrogen [Mass/Vol] 39 mg/dL High 8-21 [facility] Comment on above: Performed By: #### L [id number], LAB17 ####Software Designer: NICOLE BOWERS ([id number])[facility])[address] [place] [address] Comprehensive metabolic 1998 panelOrdered By: Eugene Rowan on 08-11-2024 Albumin [Mass/Vol] 3 g/dL Low 3.5 - 5.0 g/dL [facility] ALP [Catalytic activity/Vol] 201 U/L High 40 - 150 U/L [facility] ALT [Catalytic activity/Vol] 86 U/L High NINF - 40 U/L [facility] Anion gap [Moles/Vol] 10 mmol/L 3 - 13 mmol/L [facility] AST [Catalytic activity/Vol] 47 U/L High NINF - 34 U/L [facility] Bilirubin [Mass/Vol] 2.6 mg/dL High NINF - 1.2 mg/dL [facility] Calcium [Mass/Vol] 8.4 mg/dL 8.4 - 10. 2 mg/dL [facility] Chloride [Moles/Vol] 102 mmol/L 98 - 10 7 mmol/L [facility] CO2 [Moles/Vol] 18 mmol/L Low 22 - 29 mmol/L [facility] Creatinine [Mass/Vol] 1.8 mg/dL High 0.72 - 1.25 mg/dL [facility] GFR/1.73 sq M.predicted (S/P/Bld) [Vol rate/Area] 46.4 mL/min Low - PINF [facility] Glucose [Mass/Vol] 94 mg/dL 74 - 100 mg/dL [facility] Interpretation and review of laboratory results Abnormal [facility] Potassium [Moles/Vol] 4 mmol/L 3.5 - 5.1 mmol/L [facility] Protein [Mass/Vol] 5.6 g/dL Low 6.4 - 8.3 g/dL [facility] Sodium [Moles/Vol] 130 mmol/L Low 136 - 145 mmol/L [facility] Urea nitrogen [Mass/Vol] 39 mg/dL High 8 - 21 mg/dL [facility] Consulton 08-11-2024 Consult Normal [facility] Consult Normal [facility] DRUGS OF ABUSEon 08-11-2024 AMPHETAMINE SCREEN Negative Normal [facility] Comment on above: Performed By: #### L [id number] ####Software Designer: NICOLE BOWERS ([id number])[facility] [place] [address] BARBITURATES SCREEN Negative Normal [facility] Comment on above: Performed By: #### L [id number] ####Software Designer: NICOLE BOWERS ([id number])[facility] [place] [address] BENZODIAZEPINE SCREEN Negative Normal [facility] Comment on above: Performed By: #### L [id number] ####Software Designer: NICOLE BOWERS ([id number])[facility] [place] [address] COCAINE METAB. SCREEN Negative Normal [facility] Comment on above: Performed By: #### L [id number] ####Software Designer: NICOLE BOWERS ([id number])[facility])[address] [place] [address] [place] FENTANYL SCREEN, UR QUAL Negative Normal [facility] Comment on above: Result Comment: ALEJANDRO Aleman COMMENTS:The expected value for all of the [...] under separate order. Performed By: #### L [id number] ####Software Designer: NICOLE BOWERS ([id number])[facility] ([facility])[address] [place] [address] METHADONE SCREEN Negative Normal [facility] Comment on above: Performed By: #### L [id number] ####Software Designer: NICOLE BOWERS ([id number])[facility] ([facility])[address] [place] [address] OPIATES SCREEN Positive Normal [facility] Comment on above: Performed By: #### L [id number] ####Software Designer: NICOLE BOWERS ([id number])[facility] ([facility])[address] [place] [address] OXYCODONE SCREEN Negative Normal [facility] Comment on above: Performed By: #### L [id number] ####Software Designer: NICOLE BOWERS ([id number])[facility] ([facility])[address] [place] [address] PHENCYCLIDINE SCREEN Negative Normal [facility] Comment on above: Performed By: #### L [id number] ####Software Designer: NICOLE BOWERS ([id number])[facility] ([facility])[address] [place] [address] ECG 12-LEADon 08-11-2024 ECG 12-LEAD IMPRESSION: Sinus tachycardia Left atrial enlargement IVCD, CONSIDER ATYPICAL LBBB Electronically Signed On 08-11-2024 12:27:06 EST by Angel Luis Morales Normal [facility] HIGH SENSITIVITY TROPONIN, S ONELI, SECOND TESTon 08-11-2024 2H TROPONIN HS (SERIAL 2ND TROPONIN) 22 ng/L Normal <=35 [facility] Comment on above: Result Comment: 2h t roponin (2nd troponin) samples collected between 1h 40 min and 2h and 20 min of the baseline collection time can be utilized to interpret delta troponins as per [facility] algorithms. Samples collected outside this timeframe need to be interpreted clinically. Performed By: #### L [id number], LAB17 ####Software Designer: NICOLE BOWERS ([id number])[facility] ([address] Laboratory - Chemistry and C hemistry - challengeOrdered By: Michelle Aguilar on 08-11-2024 Base excess Calc (BldV) [Moles/Vol] -1.3000 mmol/L -3.0 - 3.0 mmol/L [facility] CO2 (BldV) [Partial pressure] 29.6 mm[Hg] Low [facility] CO2 [Moles/Vol] 22 mmol/L Low 24.0 - 28.0 mmol/L [facility] HCO3 (Bld) [Moles/Vol] 21.1 mmol/L Low 23.0 - 27.0 mmol/L [facility] Oxygen (BldV) [Partial pressure] 120.8 mm[Hg] mm Hg [facility] pH (BldV) 7.47 [pH] High 7.330 - 7.430 [facility] h Laboratory - Coagulationon 0 08-11-2024 aPTT Coag (PPP) [Time] 26.8 s 20.0 - 30.5 s [facility] INR Coag (PPP) [Relative time] 1.4 {INR} High 0.9 - 1.1 [facility] PT Coag (Bld) [Time] 15.7 s High 9.0 - 12.0 s [facility] Laboratory - Drug toxicology on 08-11-2024 Amphetamines Screen method >1000 ng/mL Ql (U) Negative [facility] Barbiturates Screen method >200 ng/mL Ql (U) Negative [facility] Benzodiazepines Ql (U) Negative [facility] Methadone Screen Ql (U) Negative [facility] Opiates Screen Ql (U) Positive [facility] oxyCODONE Ql (U) [facility]U) Negative [facility] Laboratory - Hematology and Cell countsOrdered By: Michelle Aguilar on 08-11-2024 Hemoglobin (Bld) [Mass/Vol] 15 g/dL Screen only [facility] No Panel Informationon 08-11 COCAINE METAB. SCREEN Negative [facility] FENTANYL SCREEN, UR QUAL Negative [facility] P Cylinder 70 degrees [facility] DE Interval 144 ms [facility] QRS Cylinder 158 degrees [facility] QRSD Interval 153 ms [facility] Healt h QT Interval 400 ms [facility] QTC Interval 536 ms [facility] T Wave Cylinder -5 degrees [facility] CV EPIPHANY [facility] Interpretation and review of laboratory results Abnormal [facility] 2h Troponin HS (Serial 2nd Troponin) 22 ng/L NINF - 35 ng/L [facility] Interpretation and review of laboratory results Normal [facility] No Panel InformationOrdered By: Michelle Aguilar on 08-11-2024 Interpretation and review of laboratory results Abnormal [facility] Source Of Oxygen Room Air [facility] He alth [facility] [facility] PROTIME AND APTTon aPTT Coag (Bld) [Time] 26.8 s Normal 20.0-30.5 [facility] Comment on above: Performed By: #### L [id number] ####Software Designer: NICOLE BOWERS ([id number])[facility] ([address] INR Coag (PPP) [Relative time] 1.4 {INR} High 0.9-1.1 [facility] Comment on above: Result Comment: Wili mmended [...] prevent Myocardial Infarction Performed By: #### L [id number] ####Software Designer: NICOLE BOWERS ([id number])[facility] (SACLAB)[address] [place] [address] PT Coag (PPP) [Time] 15.7 s High 9.0-12.0 [facility] [employer] [facility] Comment on above: Performed By: #### L [id number] ####Software Designer: NICOLE BOWERS ([id number])[facility] (CTQuanLAB)[address] [place] [address] Progress Noteon 08-11-2024 Progress Note Normal [facility] [employer] [facility] Progress Note .Nutrition rescreen completed. Chart reviewed. Patient to be monitored and followed by the diet licensed chemical spray technician. PAO Hairston Normal [facility] [employer] [facility] Progress Note Normal [facility] [employer] System [facility] Progress Note Normal [facility] [employer] [facility] Progress Note Normal [facility] [employer] [facility] US Heart TransthoracicOrdere d By: Ana Singletary on 08-11-2024 Ao Root Index 1.44 cm/m2 [facility] Work Phone: Aortic Root 2.9 cm [facility] Work Phone: Aortic valve Mean systole pressure gradient by US.doppler derived full Bernoulli 1 mmHg [facility] Work Phone: Aortic valve Orifice area by US 2.8 cm2 [facility] Work Phone: Aortic valve Peak systolic flow by US.doppler 0.5 m/s [facility] Work Phone: Ascending Aorta 3.2 cm [facility] Work Phone: Ascending Aorta Index 1.58 cm/m2 [facility] Work Phone: AV Area by Peak Velocity 2.4 cm2 [facility] Work Phone: AV Area by VTI 2 cm2 [facility] Work Phone: AV Peak Gradient 2 mmHg [facility] Work Phone: AV Peak Velocity 0.7 m/s [facility] Work Phone: AV Velocity Ratio 0.86 [facility] ealth Work Phone: AV VTI 9.5 cm [facility] [employer] Work Phone: EMILY/BSA Peak Velocity 1.2 cm2/m2 [facility] [employer] Work Phone: EMILY/BSA VTI 1 cm2/m2 [facility] [employer] Work Phone: E/E' Lateral 8.14 [facility] [employer] Work Phone: E/E' Ratio (Averaged) 9.77 [facility] [employer] Work Phone: E/E' Septal 11.4 [facility] [employer] Work Phone: Est. RA Pressure 15 mmHg [facility] Work Phone: Fractional Shortening 2D 15 % 28 - 44 % [facility] [employer] Work Phone: Global Longitudinal Strain -4.1 % [facility] [employer] Work Phone: Interpretation and review of laboratory results Abnormal [facility] [employer] Work Phone: IVC Diameter 3.2 cm [facility] [employer] Work Phone: IVSd 0.7 cm 0.6 - 1.0 cm [facility] [employer] Work Phone: LA Diameter 4.8 cm [facility] [employer] Work Phone: LA Size Index 2.38 cm/m2 [facility] [employer] Work Phone: LA Volume 2C 173 mL Abnormal 18 - 58 mL [facility] [employer] Work Phone: [phone] LA Volume 4C 111 mL Abnormal 18 - 58 mL [facility] [employer] Work Phone: LA Volume A/L 152 mL [facility] [employer] Work Phone: [phone] LA Volume BP 146 mL Abnormal 18 - 58 mL [facility] [employer] Work Phone: LA Volume Index 2C 86 mL/m2 Abnormal 16 - 34 mL/m2 [facility] [employer] Work Phone: [phone] LA Volume Index 4C 55 mL/m2 Abnormal 16 - 34 mL/m2 [facility] Work Phone: LA Volume Index A/L 75 mL/m2 16 - 34 mL/m2 [facility] Work Phone: LA Volume Index BP 72 ml/m2 Abnormal 16 - 34 ml/m2 [facility] Work Phone: LA/AO Root Ratio 1.66 [facility] Work Phone: Left ventricular Ejection fraction by US.2D+Calculated by biplane method of disks 18 % Abnormal 55 - 100 % [facility] Work Phone: [phone] LV E' Lateral Velocity 7 cm/s [facility] Work Phone: LV E' Septal Velocity 5 cm/s [facility] Work Phone: LV EDV A2C 210 mL [facility] Work Phone: LV EDV A4C 150 mL [facility] Work Phone: LV EDV BP 182 mL Abnormal 67 - 155 mL [facility] Work Phone: LV EDV Index A2C 104 mL/m2 [facility] alth Work Phone: LV EDV Index A4C 74 mL/m2 [facility] Work Phone: LV EDV Index BP 90 mL/m2 [facility] Work Phone: LV Ejection Fraction A2C 23 % [facility] Work Phone: LV Ejection Fraction A4C 14 % [facility] Work Phone: LV ESV A2C 162 mL [facility] Work Phone: LV ESV A4C 129 mL [facility] Work Phone: LV ESV BP 149 mL Abnormal 22 - 58 mL [facility] Work Phone: LV ESV Index A2C 80 mL/m2 [facility] Work Phone: LV ESV Index A4C 64 mL/m2 [facility] Work Phone: LV ESV Index BP 74 mL/m2 [facility] lt Work Phone: [phone] LV Mass 2D 198.1 g 88 - 224 g [facility] [employer] Work Phone: [phone] LV Mass 2D Index 98.1 g/m2 49 - 115 g/m2 [facility] [employer] Work Phone: [phone] LV RWT Ratio 0.25 [facility] [employer] Work Phone: [phone] LVIDd 6.5 cm Abnormal 4.2 - 5.9 cm [facility] [employer] Work Phone: [phone] LVIDd Index 3.22 cm/m2 [facility] [employer] Work Phone: LVIDs 5.5 cm [facility] [employer] Work Phone: LVIDs Index 2.72 cm/m2 [facility] [employer] Work Phone: LVOT Cardiac Output 1.8 liter/minute [facility] [employer] Work Phone: [phone] LVOT Diameter 1.9 cm [facility] Work Phone: LVOT Mean Gradient 1 mmHg [facility] [employer] Work Phone: [phone] LVOT Peak Gradient 1 mmHg [facility] [employer] Work Phone: LVOT Peak Velocity 0.6 m/s [facility] [employer] Work Phone: [phone] LVOT Stroke Volume Index 9.1 mL/m2 [facility] [employer] Work Phone: [phone] LVOT SV 18.4 ml [facility] [employer] Work Phone: [phone] LVOT VTI 6.5 cm [facility] [employer] Work Phone: LVOT:AV VTI Index 0.68 [facility] ealth Work Phone: LVPWd 0.8 cm 0.6 - 1.0 cm [facility] [employer] Work Phone: MR VTI 118.3 cm [facility] [employer] Work Phone: MV A Velocity 0.47 m/s [facility] Work Phone: [phone] MV E Velocity 0.57 m/s [facility] Work Phone: MV E Wave Deceleration Time 128.5 ms [facility] Work Phone: MV E/A 1.21 [facility] Work Phone: MV Nyquist Velocity 48 cm/s [facility] Work Phone: MV Regurg Velocity PISA 3.6 m/s [facility] Work Phone: RA Area 4C 161 mL [facility] Work Phone: RV Basal Dimension 6.2 cm [facility] Work Phone: RV Free Wall Peak S' 13 cm/s [facility] Work Phone: RV Longitudinal Dimension 8.2 cm [facility] Work Phone: RV Mid Dimension 3.8 cm [facility] alth Work Phone: RVSP 27 mmHg [facility] Work Phone: TAPSE 1.8 cm 1.7 cm [facility] Work Phone: TR Max Velocity 1.7 m/s [facility] Work Phone: TR Peak Gradient 12 mmHg [facility] Work Phone: TV Nyquist Velocity 48 cm/s [facility] Work Phone: [facility] Work Phone: US Heart Transthoracicon CV CPACS Urinalysis complete panel (U )on 08-11-2024 Bilirubin Ql (U) Negative Negative mg/dL [facility] [employer] Clarity (U) Clear Clear [facility] [employer] Color (U) Light Yellow Lt. Yellow [facility] [employer] Glucose Ql (U) Normal Normal (<70) mg/dL [facility] [employer] Hemoglobin Ql (U) Negative Negative mg/dL [facility] [employer] Interpretation and review of laboratory results Normal [facility] [employer] Ketones (U) [Mass/Vol] Negative Negat dai mg/dL [facility] [employer] Leukocyte esterase Test strip Ql (U) Negative Negative Nicky/uL [facility] Nitrite Ql (U) Negative Negative [facility] th pH (U) 5.0 [pH] 5.0 - 8.0 pH [facility] Protein (U) [Mass/Vol] Negative Negat dai mg/dL [facility] Specific gravity (U) [Rel density] 1.007 1.005 - 1.030 [facility] Urobilinogen (U) [Mass/Vol] Normal Normal (0-1) mg/dL [facility] Vital signson 08-11-2024 Heart rate 108 /min bpm [facility] Vital signsOrdered By: Kavitha Aguilar on 08-11-2024 Oxygen saturation in Venous blood 98.6 % [facility] XR CHEST 1 VIEWon 08-11-2024 XR CHEST 1 VIEW Normal [facility] XR Chest Single viewon 08-11 [facility] Radiology Study observation (narrative) [facility] XR Chest Single viewOrdered By: Blanche Doyle on 08-11-2024 [facility] Work Phone: 30on 08-10-2024 30 Normal [facility] ED Nursing Noteon 08-10-2024 ED Nursing Note Report called to 5W Normal [facility] ED Nursing Note Pt ambulatory to bathroom with steady gait. Normal [facility] ED Nursing Note Pt reuestning meds for pain and nausea Normal [facility] ED Nursing Note Pt expressing frustration of continued wait time. Ice chips are provided per request Normal [facility] ED Nursing Note [facility] contacted for update. Pt aware of continued wait time for bed assignment. No other requests at present time. Normal [facility] ED Nursing Note Pt declines four eyes skin check for admission Normal [facility] ED Nursing Note PO fluids and light meal provided. Pt updated and aware of continued wait time for bed assignment. Normal [facility] ED Nursing Note Pt has oxygen remove d and sats have been maintained at 97-100% on room air. Will continue to monitor. Normal [facility] ED Nursing Note This nurse returned to room, No urine in urinal or bedside commode, no bm in bedside commode noted. A wipe was in bedside commode. Commode emptied. Patients cardiac monitoring and bp cuff that patient removed was replaced. Normal [facility] ED Nursing Note Normal [facility] ED Nursing Note Notified physician patients spo2 decreasing and blood pressures soft 2L o2 initiated Normal [facility] ED Nursing Note Physician aware unable to collect 2nd trop Normal [facility] Laboratory - Chemistry and C hemistry - challengeon 08-10-2024 Magnesium [Mass/Vol] 2 mg/dL 1.6 - 2 .6 mg/dL [facility] Magnesium [Mass/Vol]on 08-10 [facility] No Panel Informationon 08-10 Interpretation and review of laboratory results Normal [facility] Phosphate [Moles/Vol]on 07-31 Phosphate [Mass/Vol] 4.1 mg/dL 2.3 - 4 .7 mg/dL [facility] US Kidneyon 08-10-2024 [facility] Radiology Study observation (narrative) [facility] KidneyOrdered By: Nir Shen on 08-10-2024 [facility] Work Phone: US RENAL COMPLETEon 08-10-19 25 US RENAL COMPLETE Normal [facility] CBC W Auto Differential pane l (Bld)on 08-09-2024 Basophils (Bld) [#/Vol] 0 10*3/uL 0.0 - 0.2 10*3/uL [facility] Basophils/100 WBC (Bld) 0.3 % 0.0 - 2.0 % [facility] Eosinophils (Bld) [#/Vol] 0 10*3/uL 0.0 - 0.5 10*3/uL [facility] Eosinophils/100 WBC (Bld) 0.3 % 0.0 - 6.0 % [facility] Erythrocyte distribution width (RBC) [Ratio] 13.2 % 11.5 - 15.0 % [facility] Hematocrit (Bld) [Volume fraction] 42.8 % 40.0 - 52.0 % [facility] Hemoglobin (Bld) [Mass/Vol] 14.2 g/dL 13.0 - 18.0 g/dL [facility] Immature granulocytes (Bld) [#/Vol] 0 10*3/uL NINF - 0.1 10*3/uL [facility] Immature granulocytes/100 WBC (Bld) 0.2 % 0.0 - 2.0 % [facility] Interpretation and review of laboratory results Abnormal [facility] Lymphocytes (Bld) [#/Vol] 3.1 10*3/uL 1.0 - 4.3 10*3/uL [facility] Lymphocytes/100 WBC (Bld) 35.6 % 15.0 - 45.0 % [facility] MCH (RBC) [Entitic mass] 33.7 pg 26.0 - 34.0 pg [facility] MCHC (RBC) [Mass/Vol] 33.2 % 30.5 - 36.0 % [facility] MCV (RBC) [Entitic vol] 101.7 fL High 77.0 - 99.0 fL [facility] Monocytes (Bld) [#/Vol] 0.6 10*3/uL 0.0 - 0.9 10*3/uL [facility] Monocytes/100 WBC (Bld) 6.5 % 5.0 - 13.0 % [facility] Neutrophils (Bld) [#/Vol] 5 10*3/uL 1.8 - 7.5 10*3/uL [facility] Neutrophils/100 WBC (Bld) 57.1 % 38.0 - 82.0 % [facility] Nucleated RBC/100 WBC (Bld) [Ratio] 0 % [facility] Platelet mean volume (Bld) [Entitic vol] 9.9 fL 9.0 - 12.7 fL [facility] Platelets (Bld) [#/Vol] 245 10*3/uL 140 - 440 10*3/uL [facility] RBC (Bld) [#/Vol] 4.21 10*6/uL Low 4.40 - 5.9 0 10*6/uL [facility] WBC (Bld) [#/Vol] 8.8 10*3/uL 3.6 - 10.7 10*3/uL [facility] CBC WITH AUTO DIFFERENTIALon 08-09-2024 Basophils (Bld) [#/Vol] 0.0 10*3/uL Normal 0.0-0.2 [facility] Comment on above: Performed By: #### L [id number] ####Software Designer: NICOLE BOWERS ([id number])[facility] (SWRLAB)[address] [place] [address] [place] Basophils/100 WBC (Bld) 0.3 % Normal 0.0-2.0 [facility] Comment on above: Performed By: #### L [id number] ####Software Designer: NICOLE BOWERS ([id number])[employer] (SWRL[employer])[address] [place] [address] Eosinophils (Bld) [#/Vol] 0.0 10*3/uL Normal 0.0-0.5 [facility] Comment on above: Performed By: #### L [id number] ####Software Designer: NICOLE BOWERS ([id number])[facility]ENTER[facility] (SWRLAB)[address] [place] [address] Eosinophils/100 WBC (Bld) 0.3 % Normal 0.0-6.0 [facility] Comment on above: Performed By: #### L [id number] ####Software Designer: NICOLE BOWERS ([id number])[facility]ENTER[facility] [employer] (SWRLAB)[address] [place] [address] Erythrocyte distribution width (RBC) [Ratio] 13.2 % Normal 11.5-15.0 [facility] Comment on above: Performed By: #### L [id number] ####Software Designer: NICOLE BOWERS ([id number])[facility]ENTERKey[facility] YE[facility] (SWRLAB)[address] [place] [address] Hematocrit (Bld) [Volume fraction] 42.8 % Normal 40.0-52.0 [facility] Comment on above: Performed By: #### L [id number] ####Software Designer: NICOLE BOWERS ([id number])[facility] (SWRLAB)[address] [place] [address] Hemoglobin (Bld) [Mass/Vol] 14.2 g/dL Normal 13.0-18.0 [facility] Comment on above: Performed By: #### L [id number] ####Software Designer: NICOLE [id number])[facility]ENTERKey[facility] (SWRL[employer])[address] [place] [address] IMMATURE GRANS % 0.2 % Normal 0.0-2.0 [facility] Comment on above: Performed By: #### L [id number] ####Software Designer: NICOLE BOWERS ([id number])[facility]ENTER[facility] (SWRLAB)[address] [place] [address] IMMATURE GRANS ABSOLUTE 0.0 10*3/uL Normal <0.1 [facility] Comment on above: Performed By: #### L [id number] ####Software Designer: NICOLE BOWERS ([id number])[facility]ENTER[facility] (SWRLAB)[address] [place] [address] Lymphocytes (Bld) [#/Vol] 3.1 10*3/uL Normal 1.0-4.3 [facility] Comment on above: Performed By: #### L [id number] ####Software Designer: NICOLE BOWERS ([id number])[facility]ENTER[facility] (SWRLAB)[address] [place] [address] Lymphocytes/100 WBC (Bld) 35.6 % Normal 15.0-45.0 [facility] Comment on above: Performed By: #### L [id number] ####Software Designer: NICOLE BOWERS ([id number])[facility]ENTERKey[facility] (SWRL[employer])[address] [place] [address] MCH (RBC) [Entitic mass] 33.7 pg Normal 26.0-34.0 [facility] Comment on above: Performed By: #### L [id number] ####Software Designer: NICOLE BOWERS ([id number])[facility]ENTERKey[facility] (SWRLAB)[address] [place] [address] MCHC 33.2 % Normal 30.5-36.0 [facility] Comment on above: Performed By: #### L [id number] ####Software Designer: NICOLE BOWERS ([id number])[facility] (SWRLAB)[address] [place] [address] MCV (RBC) [Entitic vol] 101.7 fL High 77.0-99.0 [facility] Comment on above: Performed By: #### L [id number] ####Software Designer: NICOLE BOWERS ([id number])[facility]ENTERA [facility]AMALJIT [employer]IT[employer] ([employer])[address] [place] [address] Monocytes (Bld) [#/Vol] 0.6 10*3/uL Normal 0.0-0.9 [facility] Comment on above: Performed By: #### L [id number] ####Software Designer: NICOLE BOWERS ([id number])[facility]ENTERA KAMALJIT RITTMAN (SW[employer])[address] [place] [address] [place] Monocytes/100 WBC (Bld) 6.5 % Normal 5.0-13.0 [facility] Comment on above: Performed By: #### L [id number] ####Software Designer: NICOLE BOWERS ([id number])[facility]ENTERKeyon [facility] (SWRL[employer])[address] [place] [address] [place] NEUTROPHILS ABSOLUTE 5.0 10*3/uL Normal 1.8-7.5 [facility] Comment on above: Performed By: #### L [id number] ####Software Designer: NICOLE BOWERS ([id number])[facility]ENTERKeyon YEH [facility] (SWRL[employer])[address] [place] [address] [place] Neutrophils/100 WBC (Bld) 57.1 % Normal 38.0-82.0 [facility] Comment on above: Performed By: #### L [id number] ####Software Designer: NICOLE BOWERS ([id number])[facility]ENTERKeyon [facility] ([employer])[address] [place] [address] [place] NRBC 0.0 /100 WBCs Normal 0.0-2.0 [facility] Comment on above: Performed By: #### L [id number] ####Software Designer: NICOLE BOWERS ([id number])[facility]ENTERKeyon [facility] (SWRLAB)[address] Platelet mean volume (Bld) [Entitic vol] 9.9 fL Normal 9.0-12.7 [facility] Comment on above: Result Comment: MPV is a calculated measurement using platelet volume ratio Performed By: #### L [id number] ####Software Designer: NICOLE BOWERS ([id number])[facility]ENTERKey[facility] (SWRLAB)[address] Platelets (Bld) [#/Vol] 245 10*3/uL Normal 140-440 [facility] Comment on above: Performed By: #### L [id number] ####Software Designer: NICOLE BOWERS ([id number])[facility]ENTERKeyon FLOREZTMAN (SWRLAB)[address] [place] [address] RBC (Bld) [#/Vol] 4.21 10*6/uL Low 4.40-5.90 [facility] Comment on above: Performed By: #### L [id number] ####Software Designer: NICOLE BOWERS ([id number])[facility]ENTERKey[facility] FLOREZTMAN (SWRLAB)[address] [place] [address] WBC (Bld) [#/Vol] 8.8 10*3/uL Normal 3.6-10.7 [facility] Comment on above: Performed By: #### L [id number] ####Software Designer: NICOLE BOWERS ([id number])[facility]ENTERKey[facility] (SWRLAB)[address] COMPREHENSIVE METABOLIC PANE Ming 08-09-2024 Albumin [Mass/Vol] 3.4 g/dL Low 3.5-5.0 [facility] Comment on above: Performed By: #### L [id number], [id number], [id number], [id number], [id number], [id number] ####Software Designer: NICOLE BOWERS ([id number])[facility] (SWRLAB)[address] [place] [address] [place] ALP [Catalytic activity/Vol] 194 U/L High 40-150 [facility] Comment on above: Performed By: #### L [id number], [id number], [id number], [id number], [id number], LAB99 ####Software Designer: NICOLE BOWERS ([id number])[facility] KAMALJIT RITTMAN (SWRLAB)[address] [place] [address] [place] ALT [Catalytic activity/Vol] 95 U/L High <40 [facility] Comment on above: Performed By: #### L AB113, KMB160, [id number], LAB17, [id number], LAB99 ####Software Designer: NICOLE BOWERS ([id number])[facility]ENTERKeyon YEH RITTMAN (SWRLAB)[address] [place] [address] [place] Anion gap [Moles/Vol] 8 mmol/L Normal 3-13 [facility] Comment on above: Performed By: #### L AB113, [id number], [id number], LAB17, SKI764, LAB99 ####Software Designer: NICOLE BOWERS ([id number])[facility]ENTERKeyon YEH RITTMAN (SWRLAB)[address] [place] [address] [place] AST [Catalytic activity/Vol] 52 U/L High <34 [facility] Comment on above: Performed By: #### L AB113, GKE184, [id number], LAB17, OJV876, LAB99 ####Software Designer: NICOLE BOWERS ([id number])[facility]ENTERKeyon YEH RITTMAN (SWRLAB)[address] [place] [address] [place] Bilirubin [Mass/Vol] 2.2 mg/dL High <1.2 [facility] Comment on above: Performed By: #### L AB113, QAK572, [id number], LAB17, KEU414, LAB99 ####Software Designer: NICOLE BOWERS ([id number])[facility] KAMALJIT RITTMAN (SWRLAB)[address] [place] [address] [place] Calcium [Mass/Vol] 8.8 mg/dL Normal 8.4-10.2 [facility] Comment on above: Performed By: #### L AB113, AIE124, [id number], LAB17, PSZ044, LAB99 ####Software Designer: NICOLE BOWERS ([id number])[facility]ENTERKeyon YEH RITTMAN (SWRLAB)[address] [place] [address] [place] Chloride [Moles/Vol] 104 mmol/L Normal 98-107 [facility] Comment on above: Performed By: #### L AB113, CGB971, [id number], LAB17, VTB354, LAB99 ####Software Designer: NICOLE BOWERS ([id number])[facility]ENTERKeyon RODRIGESKAMALJIT RITTMAN (SWRLAB)[address] [place] [address] [place] CO2 [Moles/Vol] 27 mmol/L Normal 22-29 [facility] Comment on above: Performed By: #### L AB113, NRX398, [id number], LAB17, VFX007, LAB99 ####Software Designer: NICOLE BOWERS ([id number])[facility]ENTERKeyon YEH RITTMAN (SWRLAB)[address] [place] [address] [place] Creatinine [Mass/Vol] 1.94 mg/dL High 0.72-1.25 [facility] Comment on above: Performed By: #### L AB113, YPS513, [id number], LAB17, LBE352, LAB99 ####Software Designer: NICOLE BOWERS ([id number])[facility]ENTERKeyon YEH RITTMAN (SWRLAB)[address] [place] [address] [place] GLOMERULAR FILTRATION RATE ML/MIN/1.73 SQ M.PREDICTED 42.4 mL/min/1.73m*2 Low >60.0 [facility] Comment on above: Result Comment: Calc ulation based on the Chronic Kidney Disease Epidemiology Collaboration (CKD-EPI) equation refit without adjustment for race Performed By: #### L AB113, JOE045, [id number], LAB17, PJA950, LAB99 ####Software Designer: NICOLE BOWERS ([id number])[facility]ENTERKeyon FLOREZTMAN (SWRLAB)[address] [place] [address] [place] Glucose [Mass/Vol] 139 mg/dL High 74-100 [facility] Comment on above: Performed By: #### L AB113, [id number], [id number], LAB17, KMJ932, LAB99 ####Software Designer: NICOLE BOWERS ([id number])[facility]ENTERKeyon FLOREZTMAN (SWRLAB)[address] [place] [address] [place] Potassium [Moles/Vol] 3.8 mmol/L Normal 3.5-5.1 [facility] Comment on above: Result Comment: [facility] potassium values may be up to 0.5 mmol/L lower than serum values. Performed By: #### L AB113, AQY705, [id number], LAB17, NBH682, LAB99 ####Software Designer: NICOLE BOWERS ([id number])[facility]ENTERKeyon FLOREZTMAN (SWRLAB)[address] [place] [address] [place] Protein [Mass/Vol] 6.4 g/dL Normal 6.4-8.3 [facility] Comment on above: Performed By: #### L AB113, WJS311, [id number], LAB17, AVU566, LAB99 ####Software Designer: NICOLE BOWERS ([id number])[facility]ENTERKeyon FLOREZTMAN (SWRLAB)[address] [place] [address] [place] Sodium [Moles/Vol] 139 mmol/L Normal 136-145 [facility] Comment on above: Performed By: #### L AB113, [id number], [id number], LAB17, LLR649, LAB99 ####Software Designer: NICOLE BOWERS ([id number])[facility]ENTERKeyon FLOREZTMAN (SWRLAB)[address] [place] [address] [place] Urea nitrogen [Mass/Vol] 35 mg/dL High 8-21 [facility] Comment on above: Performed By: #### L AB113, UYR729, [id number], LAB17, FGQ607, LAB99 ####Software Designer: NICOLE BOWERS ([id number])[facility] KAMALJIT FLOWERS (SWRLAB)[address] [place] [address] Comprehensive metabolic 1998 panelon 08-09-2024 Albumin [Mass/Vol] 3.4 g/dL Low 3.5 - 5.0 g/dL [facility] ALP [Catalytic activity/Vol] 194 U/L High 40 - 150 U/L [facility] ALT [Catalytic activity/Vol] 95 U/L High NINF - 40 U/L [facility] Anion gap [Moles/Vol] 8 mmol/L 3 - 13 mmol/L [facility] AST [Catalytic activity/Vol] 52 U/L High [facility] U/L [facility] Bilirubin [Mass/Vol] 2.2 mg/dL High NINF - 1.2 mg/dL [facility] Calcium [Mass/Vol] 8.8 mg/dL 8.4 - 10. 2 mg/dL [facility] Chloride [Moles/Vol] 104 mmol/L 98 - 10 7 mmol/L [facility] CO2 [Moles/Vol] 27 mmol/L 22 - 29 mmol/L [facility] Creatinine [Mass/Vol] 1.94 mg/dL High 0.72 - 1.25 mg/dL [facility] GFR/1.73 sq M.predicted (S/P/Bld) [Vol rate/Area] 42.4 mL/min Low - PINF [facility] Glucose [Mass/Vol] 139 mg/dL High 74 - 100 mg/dL [facility] Interpretation and review of laboratory results Abnormal [facility] Potassium [Moles/Vol] 3.8 mmol/L 3.5 - 5.1 mmol/L [facility] Protein [Mass/Vol] 6.4 g/dL 6.4 - 8.3 g/dL [facility] Sodium [Moles/Vol] 139 mmol/L 136 - 145 mmol/L [facility] Urea nitrogen [Mass/Vol] 35 mg/dL High 8 - 21 mg/dL [facility] ECG 12-LEADon 08-09-2024 ECG 12-LEAD Normal [facility] ED Nursing Noteon 02-10-2025 ED Nursing Note Sheets changed per patient request Normal [facility] ED Nursing Note The patient when thi s nurse was leaving room asked when he would be getting pain medications. Physician notified. Normal [facility] ED Nursing Note Normal [facility] ED Provider Noteon ED Provider Note Normal [facility] HIGH SENSITIVITY TROPONIN, S ERIAL BASELINEon 08-09-2024 TROPONIN HS SERIAL BASELINE 31 ng/L Normal <=35 [facility] Comment on above: Result Comment: In i ndividuals presenting with symptoms > 2h, a baseline troponin <= 5 ng/L suggests acutecardiac injury is unlikely and further serial testing is generally not indicated. Performed By: #### L AB113, ULV065, [id number], LAB17, KPD052, LAB99 ####Software Designer: NICOLE OBWERS ([id number])[facility] [employer] water systemsAN ([employer]asters[employer] IndustriesRLAB)[address] [place] [address] LIPASEon 08-09-2024 Lipase [Catalytic activity/Vol] 16 U/L Normal <55 [facility] Comment on above: Performed By: #### L AB113, [id number], [id number], LAB17, FVM981, LAB99 ####Software Designer: NICOLE BOWERS ([id number])[facility] [employer] water systemsAN ([employer] IndustriesRL[employer])[address] [place] [address] Laboratory - Chemistry and C hemistry - challengeon 08-09-2024 Lipase [Catalytic activity/Vol] 16 U/L NINF - 55 U/L [facility] Lipase [Catalytic activity/V ol]on 08-09-2024 Interpretation and review of laboratory results Normal [facility] MAGNESIUMon 08-09-2024 Magnesium [Mass/Vol] 2.0 mg/dL Normal 1.6-2.6 [facility] Comment on above: Result Comment: ALEJANDRO Aleman COMMENTS:Higher values can be expected in females during menses. Performed By: #### L AB113, QZP156, [id number], LAB17, LCR532, LAB99 ####Software Designer: NICOLE BOWERS ([id number])[facility] PureSafe water systemsAN (SWRLAB)[address] [place] [address] [place] NT PRO BNPon 08-09-2024 Natriuretic peptide B (Bld) [Mass/Vol] 26417 pg/mL High <125 [facility] Comment on above: Performed By: #### L AB113, PFL935, [id number], LAB17, GAD332, LAB99 ####Software Designer: NICOLE BOWERS ([id number])[facility]ENTERKey[facility] ALEXANDERAN (SWRLAB)[address] [place] [address] [place] Natriuretic peptide B [Mass/ Vol]on 08-09-2024 Interpretation and review of laboratory results Abnormal [facility] Natriuretic peptide B (Bld) [Mass/Vol] 26050 pg/mL High NINF - 125 pg/mL [facility] No Panel Informationon 08-09 Interpretation and review of laboratory results Normal [facility] Troponin HS Serial Baseline 31 ng/L NINF - 35 ng/L [facility] P Cylinder 63 degrees [facility] DE Interval 148 ms [facility] QRS Cylinder -15 degrees [facility] QRSD Interval 95 ms [facility] h QT Interval 338 ms [facility] QTC Interval 472 ms [facility] T Wave Cylinder 122 degrees [facility] CV EPIPHANY [facility] PHOSPHORUSon 08-09-2024 Phosphate [Mass/Vol] 4.1 mg/dL Normal 2.3-4.7 [facility] Comment on above: Performed By: #### L AB113, ZBC497, [id number], LAB17, HUB412, LAB99 ####Software Designer: NICOLE BOWERS ([id number])[facility]ENTERKey[facility] FLOWERS (SWRLAB)[address] [place] [address] [place] Vital signson 08-09-2024 Heart rate 117 /min bpm [facility] [employer] XR Chest Single viewon 08-09 [facility] Radiology Study observation (narrative) [facility] [employer] XR Chest Single viewOrdered By: Joel Hi on 08-09-2024 [facility] [employer] Work Phone: [phone] 08-05-2024 36 Normal [facility] 36 Normal [facility] 36 Pt presented to ER last evening, approx [address] Astudillo in office. Pt then left the ER AMA, less than 20 minutes after arriving to the ER. Dr Astudillo will review labs Normal [facility] 36 Normal [facility] BASIC METABOLIC PANELon Anion gap [Moles/Vol] 10 mmol/L Normal 3-13 [facility] Comment on above: Performed By: #### L AB20, UHB885, LAB15, [id number], [id number] ####Software Designer: NICOLE BOWERS ([id number])[facility] ([facility])[address] [place] [address] Calcium [Mass/Vol] 8.9 mg/dL Normal 8.4-10.2 [facility] Comment on above: Performed By: #### L AB20, QHC549, LAB15, [id number], [id number] ####Software Designer: NICOLE BOWERS ([id number])[facility] ([facility] [place] [address] Chloride [Moles/Vol] 98 mmol/L Normal 98-107 [facility] Comment on above: Performed By: #### L AB20, QGD602, LAB15, [id number], YBC834 ####Software Designer: NICOLE BOWERS ([id number])[facility] ([facility])[address] [place] [address] CO2 [Moles/Vol] 25 mmol/L Normal 22-29 [facility] Comment on above: Performed By: #### L AB20, OBW605, LAB15, [id number], [id number] ####Software Designer: NICOLE BOWERS ([id number])[facility] ([facility])[address] [place] [address] [place] Creatinine [Mass/Vol] 1.62 mg/dL High 0.72-1.25 [facility] Comment on above: Performed By: #### L AB20, THX564, LAB15, [id number], [id number] ####Software Designer: NICOLE BOWERS ([id number])[facility] [address] GLOMERULAR FILTRATION RATE ML/MIN/1.73 SQ M.PREDICTED 52.7 mL/min/1.73m*2 Low >60.0 [facility] Comment on above: Result Comment: Calc ulation based on the Chronic Kidney Disease Epidemiology Collaboration (CKD-EPI) equation refit without adjustment for race Performed By: #### L AB20, EPN637, LAB15, [id number], TXC357 ####Software Designer: NICOLE BOWERS ([id number])[facility])[address] [place] [address] Glucose [Mass/Vol] 113 mg/dL High 74-100 [facility] Comment on above: Performed By: #### L AB20, NND146, LAB15, [id number], [id number] ####Software Designer: NICOLE BOWERS ([id number])[address] Potassium [Moles/Vol] 3.6 mmol/L Normal 3.5-5.1 [facility] Comment on above: Result Comment: [facility] potassium values may be up to 0.5 mmol/L lower than serum values. Performed By: #### L AB20, PUW215, LAB15, [id number], UTA702 ####Software Designer: NICOLE BOWERS ([id number])[place] [address] [place] Sodium [Moles/Vol] 133 mmol/L Low 136-145 [facility] Comment on above: Performed By: #### L AB20, HEJ809, LAB15, [id number], MIP986 ####Software Designer: NICOLE BOWERS ([id number])[place] [address] [place] Urea nitrogen [Mass/Vol] 38 mg/dL High 8-21 [facility] Comment on above: Performed By: #### L AB20, NQS218, LAB15, [id number], CBF753 ####Software Designer: NICOLE BOWERS ([id number])[address] [place] [address] [facility] Basic metabolic 1998 panelon 08-05-2024 Anion gap [Moles/Vol] 10 mmol/L 3 - 13 mmol/L [facility] [employer] Calcium [Mass/Vol] 8.9 mg/dL 8.4 - 10. 2 mg/dL [facility] [employer] Chloride [Moles/Vol] 98 mmol/L 98 - 10 7 mmol/L [facility] [employer] CO2 [Moles/Vol] 25 mmol/L 22 - 29 mmol/L [facility] [employer] Creatinine [Mass/Vol] 1.62 mg/dL High 0.72 - 1.25 mg/dL [facility] [employer] GFR/1.73 sq M.predicted (S/P/Bld) [Vol rate/Area] 52.7 mL/min Low - PINF [facility] [employer] Comment on above: Calculation based on the Chronic Kidney Disease Epidemiology Collaboration (CKD-EPI) equation refit without adjustment for race Glucose [Mass/Vol] 113 mg/dL High 74 - 100 mg/dL [facility] [employer] Potassium [Moles/Vol] 3.6 mmol/L 3.5 - 5.1 mmol/L [facility] [employer] Comment on above: Plasma potassium heidi ues may be up to 0.5 mmol/L lower than serum values. Sodium [Moles/Vol] 133 mmol/L Low 136 - 145 mmol/L [facility] [employer] Urea nitrogen [Mass/Vol] 38 mg/dL High 8 - 21 mg/dL [facility] [employer] CBC W Auto Differential pane l (Bld)on 08-05-2024 Basophils (Bld) [#/Vol] 0 10*3/uL 0.0 - 0.2 10*3/uL [facility] [employer] Basophils/100 WBC (Bld) 0.3 % 0.0 - 2.0 % [facility] [employer] Eosinophils (Bld) [#/Vol] 0 10*3/uL 0.0 - 0.5 10*3/uL [facility] [employer] Eosinophils/100 WBC (Bld) 0.4 % 0.0 - 6.0 % [facility] [employer] Erythrocyte distribution width (RBC) [Ratio] 12.9 % 11.5 - 15.0 % [facility] [employer] Hematocrit (Bld) [Volume fraction] 42.7 % 40.0 - 52.0 % [facility] [employer] Hemoglobin (Bld) [Mass/Vol] 14.1 g/dL 13.0 - 18.0 g/dL [facility] Immature granulocytes (Bld) [#/Vol] 0 10*3/uL NINF - 0.1 10*3/uL [facility] [employer] Immature granulocytes/100 WBC (Bld) 0.1 % 0.0 - 2.0 % [facility] Interpretation and review of laboratory results Abnormal [facility] Lymphocytes (Bld) [#/Vol] 2.2 10*3/uL 1.0 - 4.3 10*3/uL [facility] Lymphocytes/100 WBC (Bld) 32.2 % 15.0 - 45.0 % [facility] MCH (RBC) [Entitic mass] 33.4 pg 26.0 - 34.0 pg [facility] MCHC (RBC) [Mass/Vol] 33 % 30.5 - 36.0 % [facility] MCV (RBC) [Entitic vol] 101.2 fL High 77.0 - 99.0 fL [facility] Monocytes (Bld) [#/Vol] 0.7 10*3/uL 0.0 - 0.9 10*3/uL [facility] Monocytes/100 WBC (Bld) 9.5 % 5.0 - 13.0 % [facility] Neutrophils (Bld) [#/Vol] 3.9 10*3/uL 1.8 - 7.5 10*3/uL [facility] Neutrophils/100 WBC (Bld) 57.5 % 38.0 - 82.0 % [facility] Nucleated RBC/100 WBC (Bld) [Ratio] 0 % [facility] Platelet mean volume (Bld) [Entitic vol] 9.7 fL 9.0 - 12.7 fL [facility] Platelets (Bld) [#/Vol] 253 10*3/uL 140 - 440 10*3/uL [facility] RBC (Bld) [#/Vol] 4.22 10*6/uL Low 4.40 - 5.9 0 10*6/uL [facility] WBC (Bld) [#/Vol] 6.8 10*3/uL 3.6 - 10.7 10*3/uL [facility] CBC WITH AUTO DIFFERENTIALon 08-05-2024 Basophils (Bld) [#/Vol] 0.0 10*3/uL Normal 0.0-0.2 [facility] Comment on above: Performed By: #### L [id number] ####Software Designer: NICOLE BOWERS ([id number])[facility])[address] [place] [address] Basophils/100 WBC (Bld) 0.3 % Normal 0.0-2.0 [facility] Comment on above: Performed By: #### L [id number] ####Software Designer: NICOLE BOWERS ([id number])[facility])[address] [place] [address] Eosinophils (Bld) [#/Vol] 0.0 10*3/uL Normal 0.0-0.5 [facility] Comment on above: Performed By: #### L [id number] ####Software Designer: NICOLE BOWERS ([id number])[address] Eosinophils/100 WBC (Bld) 0.4 % Normal 0.0-6.0 [facility] Comment on above: Performed By: #### L [id number] ####Software Designer: NICOLE BOWERS ([id number])[address] Erythrocyte distribution width (RBC) [Ratio] 12.9 % Normal 11.5-15.0 [facility] Comment on above: Performed By: #### L [id number] ####Software Designer: NICOLE BOWERS ([id number])[address] Hematocrit (Bld) [Volume fraction] 42.7 % Normal 40.0-52.0 [facility] Comment on above: Performed By: #### L [id number] ####Software Designer: NICOLE BOWERS ([id number])[address] Hemoglobin (Bld) [Mass/Vol] 14.1 g/dL Normal 13.0-18.0 [facility] Comment on above: Performed By: #### L [id number] ####Software Designer: NICOLE BOWERS ([id number])[facility] ([facility])[address] [place] [address] IMMATURE GRANS % 0.1 % Normal 0.0-2.0 [facility] Comment on above: Performed By: #### L [id number] ####Software Designer: NICOLE BOWERS ([id number])[facility])[address] [place] [address] IMMATURE GRANS ABSOLUTE 0.0 10*3/uL Normal <0.1 [facility] Comment on above: Performed By: #### L [id number] ####Software Designer: NICOLE BOWERS ([id number])[facility])[address] [place] [address] Lymphocytes (Bld) [#/Vol] 2.2 10*3/uL Normal 1.0-4.3 [facility] Comment on above: Performed By: #### L [id number] ####Software Designer: NICOLE BOWERS ([id number])[facility] ([facility])[address] [place] [address] Lymphocytes/100 WBC (Bld) 32.2 % Normal 15.0-45.0 [facility] Comment on above: Performed By: #### L [id number] ####Software Designer: NICOLE BOWERS ([id number])[facility])[address] [place] [address] MCH (RBC) [Entitic mass] 33.4 pg Normal 26.0-34.0 [facility] Comment on above: Performed By: #### L [id number] ####Software Designer: NICOLE BOWERS ([id number])[facility])[address] [place] [address] MCHC 33.0 % Normal 30.5-36.0 [facility] Comment on above: Performed By: #### L [id number] ####Software Designer: NICOLE BOWERS ([id number])[facility])[address] [place] [address] MCV (RBC) [Entitic vol] 101.2 fL High 77.0-99.0 [facility] Comment on above: Performed By: #### L [id number] ####Software Designer: NICOLE BOWERS ([id number])[facility] ([facility])[address] [place] [address] Monocytes (Bld) [#/Vol] 0.7 10*3/uL Normal 0.0-0.9 [facility] Comment on above: Performed By: #### L [id number] ####Software Designer: NICOLE BOWERS ([id number])[facility] ([facility])[address] [place] [address] Monocytes/100 WBC (Bld) 9.5 % Normal 5.0-13.0 [facility] Comment on above: Performed By: #### L [id number] ####Software Designer: NICOLE BOWERS ([id number])[facility] ([facility])[address] [place] [address] NEUTROPHILS ABSOLUTE 3.9 10*3/uL Normal 1.8-7.5 [facility] Comment on above: Performed By: #### L [id number] ####Software Designer: NICOLE BOWERS ([id number])[facility] ([facility])[address] [place] [address] Neutrophils/100 WBC (Bld) 57.5 % Normal 38.0-82.0 [facility] Comment on above: Performed By: #### L [id number] ####Software Designer: NICOLE BOWERS ([id number])[facility] ([facility])[address] [place] [address] NRBC 0.0 /100 WBCs Normal 0.0-2.0 [facility] Comment on above: Performed By: #### L [id number] ####Software Designer: NICOLE BOWERS ([id number])[facility] ([facility])[address] [place] [address] Platelet mean volume (Bld) [Entitic vol] 9.7 fL Normal 9.0-12.7 [facility] Comment on above: Performed By: #### L [id number] ####Software Designer: NICOLE BOWERS ([id number])[facility] [place] [address] Platelets (Bld) [#/Vol] 253 10*3/uL Normal 140-440 [facility] Comment on above: Performed By: #### L [id number] ####Software Designer: NICOLE BOWERS ([id number])[facility] ([facility])[address] [place] [address] RBC (Bld) [#/Vol] 4.22 10*6/uL Low 4.40-5.90 [facility] Comment on above: Performed By: #### L [id number] ####Software Designer: NICOLE BOWERS ([id number])[facility] ([facility])[address] [place] [address] WBC (Bld) [#/Vol] 6.8 10*3/uL Normal 3.6-10.7 [facility] Comment on above: Performed By: #### L [id number] ####Software Designer: NICOLE BOWERS ([id number])[facility] ([facility])[address] [place] [address] ECG 12-LEADon 08-05-2024 ECG 12-LEAD IMPRESSION: Sinus tachycardia LVH with secondary repolarization abnormality Borderline prolonged QT interval Compared to EKG from 08/04/24, new T wave inversions and ST depression V5 Electronically Signed On 08-05-2024 18:28:44 EST by Roman Alejo Normal [facility] ECG 12-LEAD IMPRESSION: Sinus tachycardia LVH with secondary repolarization abnormality Borderline prolonged QT interval Compared to ECG 07/23/24 No significant change Electronically Signed On 08-05-2024 06:42:39 EST by Chas Haddad Normal [facility] ED Nursing Noteon 08-05-2024 ED Nursing Note Pt came up to this R N stating he wanted to leave and was done waiting. Pt refused to speak with BASE WAD OPERATOR ADJUSTER. PIV removed. Pt ambulated out of IRP with steady gait. Ashtyn BASE WAD OPERATOR ADJUSTER made aware pt left Normal [facility] HEPATIC FUNCTION PANELon Albumin [Mass/Vol] 3.4 g/dL Low 3.5-5.0 [facility] Comment on above: Performed By: #### L AB20, [id number], LAB15, [id number], [id number] ####Software Designer: NICOLE BOWERS ([id number])[facility] ([facility])[address] [place] [address] ALP [Catalytic activity/Vol] 173 U/L High 40-150 [facility] Comment on above: Performed By: #### L AB20, ULQ000, LAB15, [id number], [id number] ####Software Designer: NICOLE BOWERS ([id number])[facility] ([facility])[address] [place] [address] ALT [Catalytic activity/Vol] 101 U/L High <40 [facility] Comment on above: Performed By: #### L AB20, [id number], LAB15, [id number], [id number] ####Software Designer: NICOLE BOWERS ([id number])[facility] ([facility])[address] [place] [address] [place] AST [Catalytic activity/Vol] 50 U/L High <34 [facility] Comment on above: Performed By: #### L AB20, [id number], LAB15, [id number], [id number] ####Software Designer: NICOLE BOWESR ([id number])[facility] ([facility])[address] [place] [address] Bilirubin [Mass/Vol] 1.9 mg/dL High <1.2 [facility] Comment on above: Performed By: #### L AB20, [id number], LAB15, [id number], [id number] ####Software Designer: NICOLE BOWERS ([id number])[facility])[address] [place] [address] Bilirubin.indirect [Mass/Vol] 1.0 mg/dL High <0.5 [facility] Comment on above: Performed By: #### L AB20, VSP112, LAB15, [id number], [id number] ####Software Designer: NICOLE BOWERS ([id number])[facility])[address] [place] [address] Protein [Mass/Vol] 6.6 g/dL Normal 6.4-8.3 [facility] Comment on above: Result Comment: Seru m protein values are higher than plasma values. Samples from recumbent persons are lower by up to 0.5 g/dL as compared to ambulatory persons. After 60 years values are lower by up to 0.2 g/dL. Performed By: #### L AB20, [id number], LAB15, [id number], [id number] ####Software Designer: NICOLE BOWERS ([id number])[facility])[address] [place] [address] HIGH SENSITIVITY TROPONIN, S ERIAL BASELINEon 08-05-2024 TROPONIN HS SERIAL BASELINE 22 ng/L Normal <=35 [facility] Comment on above: Result Comment: In i ndividuals presenting with symptoms > 2h, a baseline troponin <= 5 ng/L suggests acutecardiac injury is unlikely and further serial testing is generally not indicated. Performed By: #### L AB20, VAN072, LAB15, [id number], [id number] ####Software Designer: NICOLE BOWERS ([id number])[facility])[address] [place] [address] HIGH SENSITIVITY TROPONIN, S ERIAL, SECOND TESTon 08-05-2024 2H TROPONIN HS (SERIAL 2ND TROPONIN) 19 ng/L Normal <=35 [facility] Comment on above: Result Comment: 2h t [...] 3rd serial troponin Performed By: #### L [id number] ####Software Designer: NICOLE BOWERS ([id number])[facility])[address] [place] [address] Hepatic function 2000 panelo n 08-05-2024 Albumin [Mass/Vol] 3.4 g/dL Low 3.5 - 5.0 g/dL [facility] [employer] ALP [Catalytic activity/Vol] 173 U/L High 40 - 150 U/L [facility] [employer] ALT [Catalytic activity/Vol] 101 U/L High NINF - 40 U/L [facility] [employer] AST [Catalytic activity/Vol] 50 U/L High NINF - 34 U/L [facility] [employer] Bilirubin [Mass/Vol] 1.9 mg/dL High NINF - 1.2 mg/dL [facility] [employer] Bilirubin.conjugated [Mass/Vol] 1 mg/dL High NINF - 0.5 mg/dL [facility] [employer] Protein [Mass/Vol] 6.6 g/dL 6.4 - 8.3 g/dL [facility] [employer] Comment on above: Serum protein values are higher than plasma values. Samples from recumbent persons are lower by up to 0.5 g/dL as compared to ambulatory persons. After 60 years values are lower by up to 0.2 g/dL. Laboratory - Chemistry and C hemistry - challengeon 08-05-2024 Magnesium [Mass/Vol] 2 mg/dL 1.6 - 2 .6 mg/dL [facility] MAGNESIUMon 08-05-2024 Magnesium [Mass/Vol] 2.0 mg/dL Normal 1.6-2.6 [facility] [employer] [facility] Comment on above: Result Comment: ALEJANDRO Aleman COMMENTS:Higher values can be expected in females during menses. Performed By: #### L AB20, [id number], LAB15, [id number], [id number] ####Software Designer: NICOLE BOWERS ([id number])[facility] [place] [address] Magnesium [Mass/Vol]on 08-05 Interpretation and review of laboratory results Normal [facility] [employer] Higher values can be expected in females during menses. [facility] [employer] NT PRO BNPon 08-05-2024 Natriuretic peptide B (Bld) [Mass/Vol] 35717 pg/mL High <125 [facility] [employer] [facility] Comment on above: Performed By: #### L AB20, CQW228, LAB15, [id number], [id number] ####Software Designer: NICOLE BOWERS ([id number])[facility] Natriuretic peptide B [Mass/ Vol]on 08-05-2024 Interpretation and review of laboratory results Abnormal [facility] [employer] Natriuretic peptide B (Bld) [Mass/Vol] 11521 pg/mL High NINF - 125 pg/mL [facility] [employer] No Panel Informationon 08-05 2h Troponin HS (Serial 2nd Troponin) 19 ng/L NINF - 35 ng/L [facility] [employer] Comment on above: 2h troponin (2nd tro ponin) samples collected between 1h 40 min and 2h and 20 min of the baseline collection time can be utilized to interpret delta troponins as per [facility] algorithms. Samples collected outside this timeframe need to be interpreted clinically. Rising or falling troponin delta between 2 15 ng/L as compared to baseline value requires a 3rd serial troponin Interpretation and review of laboratory results Normal [facility] [employer] Sinus tachycardia LVH with secondary repolarization abnormality Borderline prolonged QT interval Compared to ECG 07/23/24 No significant change Electronically Signed On 08-05-2024 06:42:39 EST by Chas Kaufman D O - 08/05/2024 IMPRESSION: Sinus tachycardia LVH with secondary repolarization abnormality Borderline prolonged QT interval Compared to ECG 07/23/24 No significant change Electronically Signed On 08-05-2024 06:42:39 EST by Chas Haddad [facility] [employer] Interpretation and review of laboratory results Normal [facility] Troponin HS Serial Baseline 22 ng/L NINF - 35 ng/L [facility] [employer] Comment on above: In individuals prese nting with symptoms > 2h, a baseline troponin <= 5 ng/L suggests acute cardiac injury is unlikely and further serial testing is generally not indicated. [facility] [employer] Interpretation and review of laboratory results Abnormal [facility] [employer] No Panel InformationOrdered By: Chas Haddad on 08-05-2024 P Cylinder 74 degrees [employer] Work Phone: DE Interval 157 ms [facility] [employer] Work Phone: QRS Cylinder -22 degrees [facility] [employer] Work Phone: QRSD Interval 99 ms [facility] Phone: QT Interval 356 ms [facility] [employer] Work Phone: QTC Interval 477 ms [employer] Phone: T Wave Cylinder 154 degrees [employer] Phone: [employer] Phone: Progress Noteon 08-05-2024 Progress Note Normal [facility] Vital signsOrdered By: Clementina Haddad on 08-05-2024 Heart rate 108 /min bpm [employer] Phone: XR Chest 2 Viewson Cardiac enlargement. No convincing acute pulmonary process seen. Report Dictated on Electronically Signed By: Christopher Faria MD Electronically Signed Date/Time: 08/05/2024 3:26 AM EST [facility] Patient Name: CARLO MEDINA : 1980 Exam Date/Time: 08/05/2024 02:54 Procedure: XR CHEST [...] process seen. 6, Spine:No convincing acute process [facility] Christopher Faria MD - 08/05/2024 Patient Name: CARLO MEDINA : 1980 Exam Date/Time: 08/05/2024 02:54 Procedure: XR CHEST [...] Electronically Signed Date/Time: 08/05/2024 3:26 AM EST [facility] Radiology Study observation (narrative) [facility] [employer] XR Chest 2 ViewsOrdered By: Christopher Faria on 08-05-2024 [facility] [employer] Work Phone: 37on 08-04-2024 37 Normal [facility] ED Provider Noteon ED Provider Note Normal [facility] Progress Noteon 08-04-2024 Progress Note Normal [facility] Progress Note Better controlled today See #1 GDMT Normal [facility] Progress Note 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 Unprovoked at that time [facility] Progress Note Normal [facility] 36on 08-03-2024 36 Unable to contact patient X2 Normal [facility] 36 Normal [facility] 36on 08-02-2024 36 Normal [facility] 36 S: Patient admitted to: [facility] 07/23/24 B: Discharged on : 07/30/24 A: Hospital follow up call initiated to discuss any medication changes, follow up appointments and discharge instructions: Acute kidney injury R: No contact x 1 at : [phone] [facility] [id number] 07-30-2024 [id number] [facility] 30on 07-30-2024 30 Normal [facility] 30 Normal [facility] [id number] 07-30-2024 [id number] Normal [facility] [id number] Normal [facility] ALBUMINon 07-30-2024 Albumin [Mass/Vol] 2.3 g/dL Low 3.5-5.0 [facility] Comment on above: Performed By: #### L AB45, [id number], LAB15, OSJ254 ####Software Designer: LESLEE HERNANDEZ ([id number])[facility] ([facility] BASIC METABOLIC PANELon 07-02 Anion gap [Moles/Vol] 8 mmol/L Normal 3-13 [facility] Comment on above: Performed By: #### L AB45, OTK600, LAB15, QRL191 ####Software Designer: LESLEE HERNANDEZ ([id number])[facility] ([facility])[address] Calcium [Mass/Vol] 6.4 mg/dL Low 8.4-10.2 [facility] Comment on above: Performed By: #### L AB45, YDI977, LAB15, KIC173 ####Software Designer: LESLEE HERNANDEZ ([id number])[facility] [place] (SBHLAB)[address] Chloride [Moles/Vol] 108 mmol/L High 98-107 [facility] Comment on above: Performed By: #### L AB45, JUV031, LAB15, KWB945 ####Software Designer: LESLEE HERNANDEZ ([id number])[facility] ([facility])[address] [place] [address] [place] CO2 [Moles/Vol] 24 mmol/L Normal 22-29 [facility] Comment on above: Performed By: #### L AB45, ZMS149, LAB15, BTA203 ####Software Designer: LESLEE HERNANDEZ ([id number])[facility] (SBHLAB)[address] [place] [address] [place] Creatinine [Mass/Vol] 1.18 mg/dL Normal 0.72-1.25 [facility] Comment on above: Performed By: #### L AB45, HPK144, LAB15, MOS160 ####Software Designer: LESLEE HERNANDEZ ([id number])[facility]ENTERKeyon [facility]ITAL[facility]uerite (SBHLAB)[address] GLOMERULAR FILTRATION RATE ML/MIN/1.73 SQ M.PREDICTED 77.1 mL/min/1.73m*2 Normal >60.0 [facility] Comment on above: Result Comment: Calc ulation based on the Chronic Kidney Disease Epidemiology Collaboration (CKD-EPI) equation refit without adjustment for race Performed By: #### L AB45, ESK236, LAB15, SXP073 ####Software Designer: LESLEE HERNANDEZ ([id number])[facility] ([facility])[address] Glucose [Mass/Vol] 92 mg/dL Normal 74-100 [facility] Comment on above: Performed By: #### L AB45, [id number], LAB15, SUH100 ####Software Designer: LESLEE HERNANDEZ ([id number])[facility] ([facility])[address] Potassium [Moles/Vol] 2.8 mmol/L Low 3.5-5.1 [facility] Comment on above: Result Comment: [facility] potassium values may be up to 0.5 mmol/L lower than serum values. Performed By: #### L AB45, [id number], LAB15, PCQ482 ####Software Designer: LESLEE HERNANDEZ ([id number])[facility] (SBHLAB)[address] [place] [address] [place] Sodium [Moles/Vol] 140 mmol/L Normal 136-145 [facility] Comment on above: Performed By: #### L AB45, BJY374, LAB15, GFZ562 ####Software Designer: LESLEE HERNANDEZ ([id number])[facility] ([facility])[address] [place] [address] [place] Urea nitrogen [Mass/Vol] 30 mg/dL High 8-21 [facility] Comment on above: Performed By: #### L AB45, VIG061, LAB15, SMX594 ####Software Designer: LESLEE HERNANDEZ ([id number])[facility] ([facility])[address] Basic metabolic 1998 panelon 07-30-2024 Anion gap [Moles/Vol] 8 mmol/L 3 - 13 mmol/L [facility] Calcium [Mass/Vol] 6.4 mg/dL Low 8.4 - 10. 2 mg/dL [facility] Chloride [Moles/Vol] 108 mmol/L High 98 - 10 7 mmol/L [facility] CO2 [Moles/Vol] 24 mmol/L 22 - 29 mmol/L [facility] Creatinine [Mass/Vol] 1.18 mg/dL 0.72 - 1.25 mg/dL [facility] GFR/1.73 sq M.predicted (S/P/Bld) [Vol rate/Area] 77.1 mL/min - PINF [facility] Comment on above: Calculation based on the Chronic Kidney Disease Epidemiology Collaboration (CKD-EPI) equation refit without adjustment for race Glucose [Mass/Vol] 92 mg/dL 74 - 100 mg/dL [facility] Potassium [Moles/Vol] 2.8 mmol/L Low 3.5 - 5.1 mmol/L [facility] Comment on above: Plasma potassium heidi ues may be up to 0.5 mmol/L lower than serum values. Sodium [Moles/Vol] 140 mmol/L 136 - 145 mmol/L [facility] Urea nitrogen [Mass/Vol] 30 mg/dL High 8 - 21 mg/dL [facility] Laboratory - Chemistry and C hemistry - challengeon 07-30-2024 Albumin [Mass/Vol] 2.3 g/dL Low 3.5 - 5.0 g/dL [facility] Magnesium [Mass/Vol] 1.3 mg/dL Low 1.6 - 2 .6 mg/dL [facility] MAGNESIUMon 07-30-2024 Magnesium [Mass/Vol] 1.3 mg/dL Low 1.6-2.6 [facility] Comment on above: Result Comment: ALEJANDRO Aleman COMMENTS:Higher values can be expected in females during menses. Performed By: #### L AB45, ZUH974, LAB15, VLC670 ####Software Designer: LESLEE HERNANDEZ ([id number])[facility] ([facility])[address] Magnesium [Mass/Vol]on 07-30 Higher values can be expected in females during menses. [facility] NT PRO BNPon 07-30-2024 Natriuretic peptide B (Bld) [Mass/Vol] 58205 pg/mL High <125 [facility] Comment on above: Performed By: #### L AB45, WDK508, LAB15, KNL515 ####Software Designer: LESLEE HERNANDEZ ([id number])[facility] ([facility])[address] Natriuretic peptide B [Mass/ Vol]on 07-30-2024 Interpretation and review of laboratory results Abnormal [facility] Natriuretic peptide B (Bld) [Mass/Vol] 28394 pg/mL High NINF - 125 pg/mL [facility] No Panel Informationon 07-30 Interpretation and review of laboratory results Abnormal [facility] Interpretation and review of laboratory results Abnormal [facility] Nursing Noteon 07-30-2024 Nursing Note Normal [facility] Progress Noteon 07-30-2024 Progress Note Normal [facility] Progress Note Normal [facility] Progress Note Nutrition update completed. Chart reviewed. Patient continues as a level 1. Normal [facility] 30on 07-29-2024 30 Normal [facility] 30 Normal [facility] CBC W Auto Differential pane l (Bld)on 07-29-2024 Basophils (Bld) [#/Vol] 0 10*3/uL 0.0 - 0.2 10*3/uL [facility] Basophils/100 WBC (Bld) 0.5 % 0.0 - 2.0 % [facility] Eosinophils (Bld) [#/Vol] 0.1 10*3/uL 0.0 - 0.5 10*3/uL [facility] Eosinophils/100 WBC (Bld) 1.7 % 0.0 - 6.0 % [facility] [employer] Erythrocyte distribution width (RBC) [Ratio] 13 % 11.5 - 15.0 % [facility] [employer] Hematocrit (Bld) [Volume fraction] 38.9 % Low 40.0 - 52.0 % [facility] Hemoglobin (Bld) [Mass/Vol] 12.5 g/dL Low 13.0 - 18.0 g/dL [facility] [employer] Immature granulocytes (Bld) [#/Vol] 0 10*3/uL NINF - 0.1 10*3/uL [facility] Health Immature granulocytes/100 WBC (Bld) 0.3 % 0.0 - 2.0 % [facility] Interpretation and review of laboratory results Abnormal [facility] Lymphocytes (Bld) [#/Vol] 2.3 10*3/uL 1.0 - 4.3 10*3/uL [facility] Health Lymphocytes/100 WBC (Bld) 39.3 % 15.0 - 45.0 % [facility] MCH (RBC) [Entitic mass] 33.5 pg 26.0 - 34.0 pg [facility] [employer] MCHC (RBC) [Mass/Vol] 32.1 % 30.5 - 36.0 % [facility] MCV (RBC) [Entitic vol] 104.3 fL High 77.0 - 99.0 fL [facility] [employer] Monocytes (Bld) [#/Vol] 0.5 10*3/uL 0.0 - 0.9 10*3/uL [facility] Health Monocytes/100 WBC (Bld) 8.6 % 5.0 - 13.0 % [facility] Neutrophils (Bld) [#/Vol] 2.9 10*3/uL 1.8 - 7.5 10*3/uL [facility] Health Neutrophils/100 WBC (Bld) 49.6 % 38.0 - 82.0 % [facility] Nucleated RBC/100 WBC (Bld) [Ratio] 0 % [facility] [employer] Platelet mean volume (Bld) [Entitic vol] 8.9 fL Low 9.0 - 12.7 fL [facility] Platelets (Bld) [#/Vol] 202 10*3/uL 140 - 440 10*3/uL [facility] RBC (Bld) [#/Vol] 3.73 10*6/uL Low 4.40 - 5.9 0 10*6/uL [facility] WBC (Bld) [#/Vol] 5.9 10*3/uL 3.6 - 10.7 10*3/uL [facility] CBC WITH AUTO DIFFERENTIALon 07-29-2024 Basophils (Bld) [#/Vol] 0.0 10*3/uL Normal 0.0-0.2 [facility] Comment on above: Performed By: #### L [id number] ####Software Designer: LESLEE HERNANDEZ ([id number])[facility] [place] (SBHLAB)[address] Basophils/100 WBC (Bld) 0.5 % Normal 0.0-2.0 [facility] Comment on above: Performed By: #### L [id number] ####Software Designer: LESLEE HERNANDEZ ([id number])[facility] ([facility])[address] [place] [address] Eosinophils (Bld) [#/Vol] 0.1 10*3/uL Normal 0.0-0.5 [facility] Comment on above: Performed By: #### L [id number] ####Software Designer: LESLEE HERNANDEZ ([id number])[facility] ([facility])[address] [place] [address] Eosinophils/100 WBC (Bld) 1.7 % Normal 0.0-6.0 [facility] Comment on above: Performed By: #### L [id number] ####Software Designer: LESLEE HERNANDEZ ([id number])[facility] [place] (SBHLAB)[address] Erythrocyte distribution width (RBC) [Ratio] 13.0 % Normal 11.5-15.0 [facility] Comment on above: Performed By: #### L [id number] ####Software Designer: LESLEE HERNANDEZ ([id number])[facility] ([facility])[address] [place] [address] Hematocrit (Bld) [Volume fraction] 38.9 % Low 40.0-52.0 [facility] Comment on above: Performed By: #### L [id number] ####Software Designer: LESLEE TORRESCER ([id number])[facility] (SBHLAB)[address] Hemoglobin (Bld) [Mass/Vol] 12.5 g/dL Low 13.0-18.0 [facility] Comment on above: Performed By: #### L [id number] ####Software Designer: LESLEE HERNANDEZ ([id number])[facility] (SBAB)[address] IMMATURE GRANS % 0.3 % Normal 0.0-2.0 [facility] Comment on above: Performed By: #### L [id number] ####Software Designer: LESLEE MCNEILLNinoskaTYRONE ([id number])[facility] ([facility])[address] IMMATURE GRANS ABSOLUTE 0.0 10*3/uL Normal <0.1 [facility] Comment on above: Performed By: #### L [id number] ####Software Designer: LESLEE HERNANDEZ ([id number])[facility] ([facility])[address] Lymphocytes (Bld) [#/Vol] 2.3 10*3/uL Normal 1.0-4.3 [facility] Comment on above: Performed By: #### L [id number] ####Software Designer: LESLEE HERNANDEZ ([id number])[facility] ([facility])[address] Lymphocytes/100 WBC (Bld) 39.3 % Normal 15.0-45.0 [facility] Comment on above: Performed By: #### L [id number] ####Software Designer: LESLEE HERNANDEZ ([id number])[facility] ([facility])[address] MCH (RBC) [Entitic mass] 33.5 pg Normal 26.0-34.0 [facility] Comment on above: Performed By: #### L [id number] ####Software Designer: LESLEE TURKTYRONE ([id number])[facility] (SBHLAB)[address] MCHC 32.1 % Normal 30.5-36.0 [facility] Comment on above: Performed By: #### L [id number] ####Software Designer: LESLEE TURKTYRONE ([id number])[facility] [place] (SBHLAB)[address] MCV (RBC) [Entitic vol] 104.3 fL High 77.0-99.0 [facility] Comment on above: Performed By: #### L [id number] ####Software Designer: LESLEE TURKTYRONE ([id number])[facility] [place] (SBHLAB)[address] [place] [address] Monocytes (Bld) [#/Vol] 0.5 10*3/uL Normal 0.0-0.9 [facility] Comment on above: Performed By: #### L [id number] ####Software Designer: LESLEE MCNEILLRAMON ([id number])[facility] [place] (SBHLAB)[address] Monocytes/100 WBC (Bld) 8.6 % Normal 5.0-13.0 [facility] Comment on above: Performed By: #### L [id number] ####Software Designer: LESLEE HERNANDEZ ([id number])[facility] [place] (SBHLAB)[address] NEUTROPHILS ABSOLUTE 2.9 10*3/uL Normal 1.8-7.5 [facility] Comment on above: Performed By: #### L [id number] ####Software Designer: LESLEE HERNANDEZ ([id number])[facility] [place] (SBHLAB)[address] Neutrophils/100 WBC (Bld) 49.6 % Normal 38.0-82.0 [facility] Comment on above: Performed By: #### L [id number] ####Software Designer: LESLEE TURKTYRONE ([id number])[facility]ENTERKeyon [place] (SBHLAB)[address] NRBC 0.0 /100 WBCs Normal 0.0-2.0 [facility] Comment on above: Performed By: #### L [id number] ####Software Designer: LESLEE MARY ([id number])[facility] (SBHLAB)[address] Platelet mean volume (Bld) [Entitic vol] 8.9 fL Low 9.0-12.7 [facility] Comment on above: Performed By: #### L [id number] ####Software Designer: LESLEE MARY ([id number])[facility]ENTER[facility] [place] (SBHLAB)[address] Platelets (Bld) [#/Vol] 202 10*3/uL Normal 140-440 [facility] Comment on above: Performed By: #### L [id number] ####Software Designer: LESLEE MCNEILLRAMON ([id number])[facility]ENTER[facility] (SBHLAB)[address] RBC (Bld) [#/Vol] 3.73 10*6/uL Low 4.40-5.90 [facility] Comment on above: Performed By: #### L [id number] ####Software Designer: LESLEE TURKTYRONE ([id number])[facility]N (SBHLAB)[address] WBC (Bld) [#/Vol] 5.9 10*3/uL Normal 3.6-10.7 [facility] Comment on above: Performed By: #### L [id number] ####Software Designer: LESLEE TURKTYRONE ([id number])[facility] [place] (SBHLAB)[address] COMPREHENSIVE METABOLIC PANE Ming 07-29-2024 Albumin [Mass/Vol] 2.4 g/dL Low 3.5-5.0 [facility] Comment on above: Performed By: #### L AB103, LAB17, [id number] ####Software Designer: LESLEE HERNANDEZ ([id number])[facility] [place] (SBHLAB)[address] ALP [Catalytic activity/Vol] 125 U/L Normal 40-150 [facility] Comment on above: Performed By: #### L AB103, LAB17, [id number] ####Software Designer: LESLEE HERNANDEZ ([id number])[facility] (SBHLAB)[address] ALT [Catalytic activity/Vol] 36 U/L Normal <40 [facility] Comment on above: Performed By: #### L AB103, LAB17, [id number] ####Software Designer: LESLEE HERNANDEZ ([id number])[facility]ENTERKeyon [facility]ITALN (SBHLAB)[address] Anion gap [Moles/Vol] 8 mmol/L Normal 3-13 [facility] Comment on above: Performed By: #### L AB103, LAB17, GPN260 ####Software Designer: LESLEE HERNANDEZ ([id number])[facility] (SBHLAB)[address] AST [Catalytic activity/Vol] 22 U/L Normal <34 [facility] Comment on above: Performed By: #### L ABKiera, LAB17, [id number] ####Software Designer: LESLEE HERNANDEZ ([id number])[facility] (SBHLAB)[address] Bilirubin [Mass/Vol] 1.2 mg/dL High <1.2 [facility] Comment on above: Performed By: #### L AB103, LAB17, [id number] ####Software Designer: LESLEE HERNANDEZ ([id number])[facility] (SBHLAB)[address] Calcium [Mass/Vol] 6.9 mg/dL Low 8.4-10.2 [facility] Comment on above: Performed By: #### L AB103, LAB17, JKC688 ####Software Designer: LESLEE HERNANDEZ ([id number])[facility] [place] (SBHLAB)[address] Chloride [Moles/Vol] 103 mmol/L Normal 98-107 [facility] Comment on above: Performed By: #### L AB103, LAB17, [id number] ####Software Designer: LESLEE HERNANDEZ ([id number])[facility]ENTERKeyon [place] (SBHLAB)[address] CO2 [Moles/Vol] 25 mmol/L Normal 22-29 [facility] Comment on above: Performed By: #### Pedro AB103, LAB17, [id number] ####Software Designer: LESLEE HERNANDEZ ([id number])[facility]ENTERKeyon [place] (SBHLAB)[address] Creatinine [Mass/Vol] 1.36 mg/dL High 0.72-1.25 [facility] Comment on above: Performed By: #### Pedro ABKiera, LAB17, YQA405 ####Software Designer: LESLEE HERNANDEZ ([id number])[facility]ENTERKeyon [place] (HLAB)[address] GLOMERULAR FILTRATION RATE ML/MIN/1.73 SQ M.PREDICTED 65.0 mL/min/1.73m*2 Normal >60.0 [facility] Comment on above: Result Comment: Calc ulation based on the Chronic Kidney Disease Epidemiology Collaboration (CKD-EPI) equation refit without adjustment for race Performed By: #### L AB103, LAB17, RKC953 ####Software Designer: LESLEE HERNANDEZ ([id number])[facility]ENTERKeyon [place] (SBHLAB)[address] [place] [address] [place] Glucose [Mass/Vol] 103 mg/dL High 74-100 [facility] Comment on above: Performed By: #### L AB103, LAB17, [id number] ####Software Designer: LESLEE HERNANDEZ ([id number])[facility] [place] (SBHLAB)[address] Potassium [Moles/Vol] 3.3 mmol/L Low 3.5-5.1 [facility] Comment on above: Result Comment: [facility] potassium values may be up to 0.5 mmol/L lower than serum values. Performed By: #### L AB103, LAB17, [id number] ####Software Designer: LESLEE HERNANDEZ ([id number])[facility] (SBHLAB)[address] Protein [Mass/Vol] 5.2 g/dL Low 6.4-8.3 [facility] Comment on above: Performed By: #### L AB103, LAB17, [id number] ####Software Designer: LESLEE HERNANDEZ ([id number])[facility] (SBHLAB)[address] Sodium [Moles/Vol] 136 mmol/L Normal 136-145 [facility] Comment on above: Performed By: #### L AB103, LAB17, JIU359 ####Software Designer: LESLEE HERNANDEZ ([id number])[facility] (SBHLAB)[address] Urea nitrogen [Mass/Vol] 28 mg/dL High 8-21 [facility] Comment on above: Performed By: #### L AB103, LAB17, [id number] ####Software Designer: LESLEE HERNANDEZ ([id number])[facility] (SBHLAB)[address] Comprehensive metabolic 1998 panelon 07-29-2024 Albumin [Mass/Vol] 2.4 g/dL Low 3.5 - 5.0 g/dL [facility] ALP [Catalytic activity/Vol] 125 U/L 40 - 150 U/L [facility] ALT [Catalytic activity/Vol] 36 U/L NINF - 40 U/L [facility] Anion gap [Moles/Vol] 8 mmol/L 3 - 13 mmol/L [facility] AST [Catalytic activity/Vol] 22 U/L NINF - 34 U/L [facility] Bilirubin [Mass/Vol] 1.2 mg/dL High NINF - 1.2 mg/dL [facility] Calcium [Mass/Vol] 6.9 mg/dL Low 8.4 - 10. 2 mg/dL [facility] Chloride [Moles/Vol] 103 mmol/L 98 - 10 7 mmol/L [facility] CO2 [Moles/Vol] 25 mmol/L 22 - 29 mmol/L [facility] Creatinine [Mass/Vol] 1.36 mg/dL High 0.72 - 1.25 mg/dL [facility] GFR/1.73 sq M.predicted (S/P/Bld) [Vol rate/Area] 65 mL/min - PINF [facility] Comment on above: Calculation based on the Chronic Kidney Disease Epidemiology Collaboration (CKD-EPI) equation refit without adjustment for race Glucose [Mass/Vol] 103 mg/dL High 74 - 100 mg/dL [facility] Interpretation and review of laboratory results Abnormal [facility] Potassium [Moles/Vol] 3.3 mmol/L Low 3.5 - 5.1 mmol/L [facility] Comment on above: Plasma potassium heidi ues may be up to 0.5 mmol/L lower than serum values. Protein [Mass/Vol] 5.2 g/dL Low 6.4 - 8.3 g/dL [facility] Sodium [Moles/Vol] 136 mmol/L 136 - 145 mmol/L [facility] Urea nitrogen [Mass/Vol] 28 mg/dL High 8 - 21 mg/dL [facility] - Chemistry and C hemistry - challengeon 07-29-2024 Magnesium [Mass/Vol] 1.4 mg/dL Low 1.6 - 2 .6 mg/dL [facility] MAGNESIUMon 07-29-2024 Magnesium [Mass/Vol] 1.4 mg/dL Low 1.6-2.6 [facility] Comment on above: Result Comment: ALEJANDRO Aleman COMMENTS:Higher values can be expected in females during menses. Performed By: #### L AB103, LAB17, [id number] ####Software Designer: LESLEE HERNANDEZ ([id number])[facility] (SBAB)[address] [place] [address] Magnesium [Mass/Vol]on 07-29 Interpretation and review of laboratory results Abnormal [facility] Higher values can be expected in females during menses. [facility] NT PRO BNPon 07-29-2024 Natriuretic peptide B (Bld) [Mass/Vol] 13531 pg/mL High <125 [facility] Comment on above: Performed By: #### L AB103, LAB17, [id number] ####Software Designer: LESLEE HERNANDEZ ([id number])[facility] [place] (SBAB)[address] [place] [address] Natriuretic peptide B [Mass/ Vol]on 07-29-2024 Interpretation and review of laboratory results Abnormal [facility] Natriuretic peptide B (Bld) [Mass/Vol] 63118 pg/mL High NINF - 125 pg/mL [facility] Nursing Noteon 07-29-2024 Nursing Note Nursing went to give IV Magnesium and patient refused. Notified Lilibeth Anguiano APRN. Normal [facility] Progress Noteon 07-29-2024 Progress Note [facility] Progress Note Normal [facility] Progress Note Normal [facility] 30on 07-28-2024 30 Normal [facility] 30 Normal [facility] CBC W Auto Differential pane l (Bld)on 07-28-2024 Basophils (Bld) [#/Vol] 0 10*3/uL 0.0 - 0.2 10*3/uL [facility] Basophils/100 WBC (Bld) 0.4 % 0.0 - 2.0 % [facility] Eosinophils (Bld) [#/Vol] 0.1 10*3/uL 0.0 - 0.5 10*3/uL [facility] Eosinophils/100 WBC (Bld) 1.8 % 0.0 - 6.0 % [facility] Erythrocyte distribution width (RBC) [Ratio] 13.2 % 11.5 - 15.0 % [facility] Hematocrit (Bld) [Volume fraction] 44.8 % 40.0 - 52.0 % [facility] Hemoglobin (Bld) [Mass/Vol] 14.3 g/dL 13.0 - 18.0 g/dL [facility] Immature granulocytes (Bld) [#/Vol] 0 10*3/uL NINF - 0.1 10*3/uL [facility] [employer] Immature granulocytes/100 WBC (Bld) 0.2 % 0.0 - 2.0 % [facility] Interpretation and review of laboratory results Abnormal [facility] Lymphocytes (Bld) [#/Vol] 2.2 10*3/uL 1.0 - 4.3 10*3/uL [facility] Lymphocytes/100 WBC (Bld) 38.7 % 15.0 - 45.0 % [facility] MCH (RBC) [Entitic mass] 33 pg 26.0 - 34.0 pg [facility] MCHC (RBC) [Mass/Vol] 31.9 % 30.5 - 36.0 % [facility] MCV (RBC) [Entitic vol] 103.5 fL High 77.0 - 99.0 fL [facility] Monocytes (Bld) [#/Vol] 0.5 10*3/uL 0.0 - 0.9 10*3/uL [facility] Monocytes/100 WBC (Bld) 9.7 % 5.0 - 13.0 % [facility] Neutrophils (Bld) [#/Vol] 2.8 10*3/uL 1.8 - 7.5 10*3/uL [facility] Neutrophils/100 WBC (Bld) 49.2 % 38.0 - 82.0 % [facility] Nucleated RBC/100 WBC (Bld) [Ratio] 0 % [facility] Platelet mean volume (Bld) [Entitic vol] 9 fL 9.0 - 12.7 fL [facility] Platelets (Bld) [#/Vol] 225 10*3/uL 140 - 440 10*3/uL [facility] RBC (Bld) [#/Vol] 4.33 10*6/uL Low 4.40 - 5.9 0 10*6/uL [facility] WBC (Bld) [#/Vol] 5.6 10*3/uL 3.6 - 10.7 10*3/uL [facility] CBC WITH AUTO DIFFERENTIALon 07-28-2024 Basophils (Bld) [#/Vol] 0.0 10*3/uL Normal 0.0-0.2 [facility] Comment on above: Performed By: #### L [id number] ####Software Designer: LESLEEFIDELIA HERNANDEZ ([id number])[facility] [place] (SBHLAB)[address] Basophils/100 WBC (Bld) 0.4 % Normal 0.0-2.0 [facility] Comment on above: Performed By: #### L [id number] ####Software Designer: LESLEE MARY ([id number])[facility] [place] (SBHLAB)[address] Eosinophils (Bld) [#/Vol] 0.1 10*3/uL Normal 0.0-0.5 [facility] Comment on above: Performed By: #### L [id number] ####Software Designer: LESLEE HERNANDEZ ([id number])[facility] [place] (SBHLAB)[address] [place] [address] Eosinophils/100 WBC (Bld) 1.8 % Normal 0.0-6.0 [facility] Comment on above: Performed By: #### L [id number] ####Software Designer: LESLEEFIDELIA HERNANDEZ ([id number])[facility] [place] (SBAB)[address] [place] [address] Erythrocyte distribution width (RBC) [Ratio] 13.2 % Normal 11.5-15.0 [facility] Comment on above: Performed By: #### L [id number] ####Software Designer: LESLEE MARY ([id number])[facility] [place] (SBHLAB)[address] [place] [address] Hematocrit (Bld) [Volume fraction] 44.8 % Normal 40.0-52.0 [facility] Comment on above: Performed By: #### L [id number] ####Software Designer: LESLEE MCNEILLRAMON ([id number])[facility] [place] (SBHLAB)[address] [place] [address] Hemoglobin (Bld) [Mass/Vol] 14.3 g/dL Normal 13.0-18.0 [facility] Comment on above: Performed By: #### L [id number] ####Software Designer: LESLEE HERNANDEZ ([id number])[facility] (SBHLAB)[address] IMMATURE GRANS % 0.2 % Normal 0.0-2.0 [facility] Comment on above: Performed By: #### L [id number] ####Software Designer: LESLEE HERNANDEZ ([id number])[facility] [place] (SBHLAB)[address] IMMATURE GRANS ABSOLUTE 0.0 10*3/uL Normal <0.1 [facility] Comment on above: Performed By: #### L [id number] ####Software Designer: LESLEE HERNANDEZ ([id number])[facility] (SBAB)[address] [place] [address] Lymphocytes (Bld) [#/Vol] 2.2 10*3/uL Normal 1.0-4.3 [facility] Comment on above: Performed By: #### L [id number] ####Software Designer: LESLEE HERNANDEZ ([id number])[facility] ([facility])[address] [place] [address] Lymphocytes/100 WBC (Bld) 38.7 % Normal 15.0-45.0 [facility] Comment on above: Performed By: #### L [id number] ####Software Designer: LESLEE HERNANDEZ ([id number])[facility] (SBHLAB)[address] [place] [address] MCH (RBC) [Entitic mass] 33.0 pg Normal 26.0-34.0 [facility] Comment on above: Performed By: #### L [id number] ####Software Designer: LESLEE HERNANDEZ ([id number])[facility] (SBHLAB)[address] [place] [address] MCHC 31.9 % Normal 30.5-36.0 [facility] Comment on above: Performed By: #### L [id number] ####Software Designer: LESLEE HERNANDEZ ([id number])[facility] [place] (SBHLAB)[address] MCV (RBC) [Entitic vol] 103.5 fL High 77.0-99.0 [facility] Comment on above: Performed By: #### L [id number] ####Software Designer: LESLEE TURKTYRONE ([id number])[facility] [place] (SBHLAB)[address] Monocytes (Bld) [#/Vol] 0.5 10*3/uL Normal 0.0-0.9 [facility] Comment on above: Performed By: #### L [id number] ####Software Designer: LESLEE TURKTYRONE ([id number])[facility] [place] (SBHLAB)[address] Monocytes/100 WBC (Bld) 9.7 % Normal 5.0-13.0 [facility] Comment on above: Performed By: #### L [id number] ####Software Designer: LESLEE TURKTYRONE ([id number])[facility] [place] (SBHLAB)[address] NEUTROPHILS ABSOLUTE 2.8 10*3/uL Normal 1.8-7.5 [facility] Comment on above: Performed By: #### L [id number] ####Software Designer: LESLEE HERNANDEZ ([id number])[facility] [place] (SBHLAB)[address] Neutrophils/100 WBC (Bld) 49.2 % Normal 38.0-82.0 [facility] Comment on above: Performed By: #### L [id number] ####Software Designer: LESLEE HERNANDEZ ([id number])[facility] [place] (SBHLAB)[address] NRBC 0.0 /100 WBCs Normal 0.0-2.0 [facility] Comment on above: Performed By: #### L [id number] ####Software Designer: LESLEE HERNANDEZ ([id number])[facility]EN[facility] (SBHLAB)[address] Platelet mean volume (Bld) [Entitic vol] 9.0 fL Normal 9.0-12.7 [facility] Comment on above: Performed By: #### L [id number] ####Software Designer: LESLEE MARY ([id number])[facility] CENTERKeyon [place] (SBHLAB)[address] Platelets (Bld) [#/Vol] 225 10*3/uL Normal 140-440 [facility] Comment on above: Performed By: #### L [id number] ####Software Designer: LESLEE MARY ([id number])[facility]ENTER[facility] [place] (SBHLAB)[address] RBC (Bld) [#/Vol] 4.33 10*6/uL Low 4.40-5.90 [facility] Comment on above: Performed By: #### L [id number] ####Software Designer: LESLEE MARY ([id number])[facility]ENTER[facility] [place] (SBHLAB)[address] WBC (Bld) [#/Vol] 5.6 10*3/uL Normal 3.6-10.7 [facility] Comment on above: Performed By: #### L [id number] ####Software Designer: LESLEE HERNANDEZ ([id number])[facility]ENTER[facility] [place] (SBHLAB)[address] COMPREHENSIVE METABOLIC PANE Ming 07-28-2024 Albumin [Mass/Vol] 3.1 g/dL Low 3.5-5.0 [facility] Comment on above: Performed By: #### L AB103, [id number], LAB17 ####Software Designer: LESLEE TURKTYRONE ([id number])[facility]ENTERKey[facility] [place] (SBHLAB)[address] ALP [Catalytic activity/Vol] 153 U/L High 40-150 [facility] Comment on above: Performed By: #### L AB103, JPD046, LAB17 ####Software Designer: LESLEE HERNANDEZ ([id number])[facility] [place] (SBHLAB)[address] ALT [Catalytic activity/Vol] 49 U/L High <40 [facility] Comment on above: Performed By: #### L AB103, ZSW265, LAB17 ####Software Designer: LESLEE HERNANDEZ ([id number])[facility] [place] (SBHLAB)[address] Anion gap [Moles/Vol] 10 mmol/L Normal 3-13 [facility] Comment on above: Performed By: #### L AB103, FSC036, LAB17 ####Software Designer: LESLEE TURKTYRONE ([id number])[facility]ENTERKey[facility] [place] (SBHLAB)[address] AST [Catalytic activity/Vol] 26 U/L Normal <34 [facility] Comment on above: Performed By: #### L AB103, [id number], LAB17 ####Software Designer: LESLEE HERNANDEZ ([id number])[facility]ENTERKeyon [place] (SBHLAB)[address] Bilirubin [Mass/Vol] 1.6 mg/dL High <1.2 [facility] Comment on above: Performed By: #### L AB103, WQT156, LAB17 ####Software Designer: LESLEE HERNANDEZ ([id number])[facility]A [facility] (SBHLAB)[address] Calcium [Mass/Vol] 8.3 mg/dL Low 8.4-10.2 [facility] Comment on above: Performed By: #### L AB103, [id number], LAB17 ####Software Designer: LESLEE HERNANDEZ ([id number])[facility] [place] (SBHLAB)[address] Chloride [Moles/Vol] 99 mmol/L Normal 98-107 [facility] Comment on above: Performed By: #### L AB103, BSN171, LAB17 ####Software Designer: LESLEEFIDELIA HERNANDEZ ([id number])[facility] (SBHLAB)[address] CO2 [Moles/Vol] 31 mmol/L High 22-29 [facility] Comment on above: Performed By: #### L AB103, [id number], LAB17 ####Software Designer: LESLEE MARY ([id number])[facility] (SBHLAB)[address] Creatinine [Mass/Vol] 1.66 mg/dL High 0.72-1.25 [facility] Comment on above: Performed By: #### L AB103, [id number], LAB17 ####Software Designer: LESLEE MCNEILLRAMON ([id number])[facility] ([facility])[address] GLOMERULAR FILTRATION RATE ML/MIN/1.73 SQ M.PREDICTED 51.2 mL/min/1.73m*2 Low >60.0 [facility] Comment on above: Result Comment: Calc ulation based on the Chronic Kidney Disease Epidemiology Collaboration (CKD-EPI) equation refit without adjustment for race Performed By: #### L AB103, [id number], LAB17 ####Software Designer: LESLEE MCNEILLRAMON ([id number])[facility] ([facility] Glucose [Mass/Vol] 97 mg/dL Normal 74-100 [facility] Comment on above: Performed By: #### L AB103, [id number], LAB17 ####Software Designer: LESLEE MARY ([id number])[facility] ([facility] Potassium [Moles/Vol] 3.5 mmol/L Normal 3.5-5.1 [facility] Comment on above: Result Comment: [facility] potassium values may be up to 0.5 mmol/L lower than serum values. Performed By: #### L AB103, [id number], LAB17 ####Software Designer: LESLEE TORRESCER ([id number])[facility] (SB[facility])[address] Protein [Mass/Vol] 6.1 g/dL Low 6.4-8.3 [facility] Comment on above: Performed By: #### L AB103, [id number], LAB17 ####Software Designer: LESLEE HERNANDEZ ([id number])[facility] (SBHLAB)[address] Sodium [Moles/Vol] 140 mmol/L Normal 136-145 [facility] Comment on above: Performed By: #### L AB103, [id number], LAB17 ####Software Designer: LESLEE TORRESCER ([id number])[facility] (SB[facility]AB)[address] Urea nitrogen [Mass/Vol] 29 mg/dL High 8-21 [facility] Comment on above: Performed By: #### L AB103, [id number], LAB17 ####Software Designer: LESLEE MCNEILLRAMON ([id number])[facility] ([facility])[address] Comprehensive metabolic 1998 panelon 07-28-2024 Albumin [Mass/Vol] 3.1 g/dL Low 3.5 - 5.0 g/dL [facility] ALP [Catalytic activity/Vol] 153 U/L High 40 - 150 U/L [facility] ALT [Catalytic activity/Vol] 49 U/L High NINF - 40 U/L [facility] Anion gap [Moles/Vol] 10 mmol/L 3 - 13 mmol/L [facility] AST [Catalytic activity/Vol] 26 U/L NINF - 34 U/L [facility] Bilirubin [Mass/Vol] 1.6 mg/dL High NINF - 1.2 mg/dL [facility] Calcium [Mass/Vol] 8.3 mg/dL Low 8.4 - 10. 2 mg/dL [facility] Chloride [Moles/Vol] 99 mmol/L 98 - 10 7 mmol/L [facility] CO2 [Moles/Vol] 31 mmol/L High 22 - 29 mmol/L [facility] Creatinine [Mass/Vol] 1.66 mg/dL High 0.72 - 1.25 mg/dL [facility] GFR/1.73 sq M.predicted (S/P/Bld) [Vol rate/Area] 51.2 mL/min Low - PINF [facility] Comment on above: Calculation based on the Chronic Kidney Disease Epidemiology Collaboration (CKD-EPI) equation refit without adjustment for race Glucose [Mass/Vol] 97 mg/dL 74 - 100 mg/dL [facility] Interpretation and review of laboratory results Abnormal [facility] Potassium [Moles/Vol] 3.5 mmol/L 3.5 - 5.1 mmol/L [facility] Comment on above: Plasma potassium heidi ues may be up to 0.5 mmol/L lower than serum values. Protein [Mass/Vol] 6.1 g/dL Low 6.4 - 8.3 g/dL [facility] Sodium [Moles/Vol] 140 mmol/L 136 - 145 mmol/L [facility] Urea nitrogen [Mass/Vol] 29 mg/dL High 8 - 21 mg/dL [facility] - Chemistry and C hemistry - challengeon 07-28-2024 Magnesium [Mass/Vol] 1.5 mg/dL Low 1.6 - 2 .6 mg/dL [facility] MAGNESIUMon 07-28-2024 Magnesium [Mass/Vol] 1.5 mg/dL Low 1.6-2.6 [facility] Comment on above: Result Comment: ALEJANDRO Aleman COMMENTS:Higher values can be expected in females during menses. Performed By: #### L AB103, [id number], LAB17 ####Software Designer: LESLEE HERNANDEZ ([id number])[facility] (SBHLAB)[address] [place] [address] Magnesium [Mass/Vol]on 07-28 Interpretation and review of laboratory results Abnormal [facility] Higher values can be expected in females during menses. [facility] Medical Studenton 07-28-2024 Medical Student Normal [facility] NT PRO BNPon 07-28-2024 Natriuretic peptide B (Bld) [Mass/Vol] 15644 pg/mL High <125 [facility] Comment on above: Performed By: #### L AB103, [id number], LAB17 ####Software Designer: LESLEE HERNANDEZ ([id number])[facility] (SBAB)[address] [place] [address] Natriuretic peptide B [Mass/ Vol]on 07-28-2024 Interpretation and review of laboratory results Abnormal [facility] Natriuretic peptide B (Bld) [Mass/Vol] 73041 pg/mL High NINF - 125 pg/mL [facility] Progress Noteon 07-28-2024 Progress Note Normal [facility] Progress Note Normal [facility] 30on 07-27-2024 30 Normal [facility] [id number] 07-27-2024 [id number] Normal [facility] CBC W Auto Differential pane l (Bld)on 07-27-2024 Basophils (Bld) [#/Vol] 0 10*3/uL 0.0 - 0.2 10*3/uL [facility] Basophils/100 WBC (Bld) 0.4 % 0.0 - 2.0 % [facility] Eosinophils (Bld) [#/Vol] 0.1 10*3/uL 0.0 - 0.5 10*3/uL [facility] Eosinophils/100 WBC (Bld) 1.4 % 0.0 - 6.0 % [facility] Erythrocyte distribution width (RBC) [Ratio] 13.3 % 11.5 - 15.0 % [facility] Hematocrit (Bld) [Volume fraction] 42.4 % 40.0 - 52.0 % [facility] Hemoglobin (Bld) [Mass/Vol] 13.8 g/dL 13.0 - 18.0 g/dL [facility] Immature granulocytes (Bld) [#/Vol] 0 10*3/uL NINF - 0.1 10*3/uL [facility] Immature granulocytes/100 WBC (Bld) 0.4 % 0.0 - 2.0 % [facility] Interpretation and review of laboratory results Abnormal [facility] Lymphocytes (Bld) [#/Vol] 1.8 10*3/uL 1.0 - 4.3 10*3/uL [facility] Lymphocytes/100 WBC (Bld) 31.2 % 15.0 - 45.0 % [facility] MCH (RBC) [Entitic mass] 33.2 pg 26.0 - 34.0 pg [facility] MCHC (RBC) [Mass/Vol] 32.5 % 30.5 - 36.0 % [facility] MCV (RBC) [Entitic vol] 101.9 fL High 77.0 - 99.0 fL [facility] Monocytes (Bld) [#/Vol] 0.5 10*3/uL 0.0 - 0.9 10*3/uL [facility] Monocytes/100 WBC (Bld) 9.4 % 5.0 - 13.0 % [facility] Neutrophils (Bld) [#/Vol] 3.2 10*3/uL 1.8 - 7.5 10*3/uL [facility] Neutrophils/100 WBC (Bld) 57.2 % 38.0 - 82.0 % [facility] Nucleated RBC/100 WBC (Bld) [Ratio] 0 % [facility] Platelet mean volume (Bld) [Entitic vol] 9.2 fL 9.0 - 12.7 fL [facility] Platelets (Bld) [#/Vol] 241 10*3/uL 140 - 440 10*3/uL [facility] RBC (Bld) [#/Vol] 4.16 10*6/uL Low 4.40 - 5.9 0 10*6/uL [facility] WBC (Bld) [#/Vol] 5.7 10*3/uL 3.6 - 10.7 10*3/uL [facility] CBC WITH AUTO DIFFERENTIALon 07-27-2024 Basophils (Bld) [#/Vol] 0.0 10*3/uL Normal 0.0-0.2 [facility] Comment on above: Performed By: #### L [id number] ####Software Designer: LESLEE HERNANDEZ ([id number])[facility] ([facility])[address] [place] [address] Basophils/100 WBC (Bld) 0.4 % Normal 0.0-2.0 [facility] Comment on above: Performed By: #### L [id number] ####Software Designer: LESLEE HERNANDEZ ([id number])[facility] (SBHLAB)[address] [place] [address] Eosinophils (Bld) [#/Vol] 0.1 10*3/uL Normal 0.0-0.5 [facility] Comment on above: Performed By: #### L [id number] ####Software Designer: LESLEE HERNANDEZ ([id number])[facility] [place] (SBHLAB)[address] Eosinophils/100 WBC (Bld) 1.4 % Normal 0.0-6.0 [facility] Comment on above: Performed By: #### L [id number] ####Software Designer: LESLEE HERNANDEZ ([id number])[facility] (SBHLAB)[address] [place] [address] Erythrocyte distribution width (RBC) [Ratio] 13.3 % Normal 11.5-15.0 [facility] Comment on above: Performed By: #### L [id number] ####Software Designer: LESLEE HERNANDEZ ([id number])[facility] ([facility] [place] [address] Hematocrit (Bld) [Volume fraction] 42.4 % Normal 40.0-52.0 [facility] Comment on above: Performed By: #### L [id number] ####Software Designer: LESLEE HERNANDEZ ([id number])[facility] (SB[facility])[address] [place] [address] Hemoglobin (Bld) [Mass/Vol] 13.8 g/dL Normal 13.0-18.0 [facility] Comment on above: Performed By: #### L [id number] ####Software Designer: LESLEE HERNANDEZ ([id number])[facility] [place] (SBHLAB)[address] [place] [address] IMMATURE GRANS % 0.4 % Normal 0.0-2.0 [facility] Comment on above: Performed By: #### L [id number] ####Software Designer: LESLEE HERNANDEZ ([id number])[facility] [place] (SBHLAB)[address] IMMATURE GRANS ABSOLUTE 0.0 10*3/uL Normal <0.1 [facility] Comment on above: Performed By: #### L [id number] ####Software Designer: LESLEE HERNANDEZ ([id number])[facility] [place] (SBHLAB)[address] Lymphocytes (Bld) [#/Vol] 1.8 10*3/uL Normal 1.0-4.3 [facility] Comment on above: Performed By: #### L [id number] ####Software Designer: LESLEE HERNANDEZ ([id number])[facility] (SB[facility])[address] Lymphocytes/100 WBC (Bld) 31.2 % Normal 15.0-45.0 [facility] Comment on above: Performed By: #### L [id number] ####Software Designer: LESLEE HERNANDEZ ([id number])[facility]ENTER[facility]on [facility] (SBHLAB)[address] MCH (RBC) [Entitic mass] 33.2 pg Normal 26.0-34.0 [facility] Comment on above: Performed By: #### L [id number] ####Software Designer: LESLEE HERNANDEZ ([id number])[facility] (SB[facility]AB)[address] MCHC 32.5 % Normal 30.5-36.0 [facility] Comment on above: Performed By: #### L [id number] ####Software Designer: LESLEE HERNANDEZ ([id number])[facility] [place] (SBHLAB)[address] MCV (RBC) [Entitic vol] 101.9 fL High 77.0-99.0 [facility] Comment on above: Performed By: #### L [id number] ####Software Designer: LESLEE HERNANDEZ ([id number])[facility] (SBHLAB)[address] Monocytes (Bld) [#/Vol] 0.5 10*3/uL Normal 0.0-0.9 [facility] Comment on above: Performed By: #### L [id number] ####Software Designer: LESLEE TUKRTYRONE ([id number])[facility] (SBHLAB)[address] Monocytes/100 WBC (Bld) 9.4 % Normal 5.0-13.0 [facility] Comment on above: Performed By: #### L [id number] ####Software Designer: LESLEE TURKTYRONE ([id number])[facility] [place] (SBHLAB)[address] NEUTROPHILS ABSOLUTE 3.2 10*3/uL Normal 1.8-7.5 [facility] Comment on above: Performed By: #### L [id number] ####Software Designer: LESLEE HERNANDEZ ([id number])[facility] [place] (SBHLAB)[address] Neutrophils/100 WBC (Bld) 57.2 % Normal 38.0-82.0 [facility] Comment on above: Performed By: #### L [id number] ####Software Designer: LESLEE TURKTYRONE ([id number])[facility] [place] (SBHLAB)[address] NRBC 0.0 /100 WBCs Normal 0.0-2.0 [facility] Comment on above: Performed By: #### L [id number] ####Software Designer: LESLEE HERNANDEZ ([id number])[facility] [place] (SBHLAB)[address] [place] [address] [place] Platelet mean volume (Bld) [Entitic vol] 9.2 fL Normal 9.0-12.7 [facility] Comment on above: Performed By: #### L [id number] ####Software Designer: LESLEE HERNANDEZ ([id number])[facility] (SBHLAB)[address] Platelets (Bld) [#/Vol] 241 10*3/uL Normal 140-440 [facility] Comment on above: Performed By: #### L [id number] ####Software Designer: LESLEE HERNANDEZ ([id number])[facility] [place] (SBHLAB)[address] RBC (Bld) [#/Vol] 4.16 10*6/uL Low 4.40-5.90 [facility] Comment on above: Performed By: #### L [id number] ####Software Designer: LESLEE HERNANDEZ ([id number])[facility] [place] (SBHLAB)[address] WBC (Bld) [#/Vol] 5.7 10*3/uL Normal 3.6-10.7 [facility] Comment on above: Performed By: #### L [id number] ####Software Designer: LESLEE HERNANDEZ ([id number])[facility] [place] (SBHLAB)[address] COMPREHENSIVE METABOLIC PANE Ming 07-27-2024 Albumin [Mass/Vol] 3.1 g/dL Low 3.5-5.0 [facility] Comment on above: Performed By: #### L AB17, [id number] ####Software Designer: LESLEE HERNANDEZ ([id number])[facility] [place] (SBHLAB)[address] ALP [Catalytic activity/Vol] 175 U/L High 40-150 [facility] Comment on above: Performed By: #### L AB17, [id number] ####Software Designer: LESLEE HERNANDEZ ([id number])[facility] [place] (SBHLAB)[address] ALT [Catalytic activity/Vol] 60 U/L High <40 [facility] Comment on above: Performed By: #### L AB17, [id number] ####Software Designer: LESLEE HERNANDEZ ([id number])[facility] (SBHLAB)[address] Anion gap [Moles/Vol] 14 mmol/L High 3-13 [facility] Comment on above: Performed By: #### L AB17, [id number] ####Software Designer: LESLEE HERNANDEZ ([id number])[facility] CENTERKeyon [place] (SBHLAB)[address] AST [Catalytic activity/Vol] 31 U/L Normal <34 [facility] Comment on above: Performed By: #### L AB17, [id number] ####Software Designer: LESLEE HERNANDEZ ([id number])[facility] [place] (SBHLAB)[address] Bilirubin [Mass/Vol] 1.3 mg/dL High <1.2 [facility] Comment on above: Performed By: #### L AB17, [id number] ####Software Designer: LESLEE HERNANDEZ ([id number])[facility]ENTERKeyon [place] (SBHLAB)[address] Calcium [Mass/Vol] 8.4 mg/dL Normal 8.4-10.2 [facility] Comment on above: Performed By: #### L AB17, [id number] ####Software Designer: LESLEE HERNANDEZ ([id number])[facility]ENTERKeyon [place] (SBHLAB)[address] Chloride [Moles/Vol] 102 mmol/L Normal 98-107 [facility] Comment on above: Performed By: #### L AB17, [id number] ####Software Designer: LESLEE HERNANDEZ ([id number])[facility] [place] (SBHLAB)[address] [place] [address] [place] CO2 [Moles/Vol] 24 mmol/L Normal 22-29 [facility] Comment on above: Performed By: #### L AB17, [id number] ####Software Designer: LESLEE HERNANDEZ ([id number])[facility] [place] (SBHLAB)[address] [place] [address] [place] Creatinine [Mass/Vol] 1.84 mg/dL High 0.72-1.25 [facility] Comment on above: Performed By: #### L AB17, [id number] ####Software Designer: LESLEE HERNANDEZ ([id number])[facility] ([facility])[address] [place] [address] [place] GLOMERULAR FILTRATION RATE ML/MIN/1.73 SQ M.PREDICTED 45.2 mL/min/1.73m*2 Low >60.0 [facility] Comment on above: Result Comment: Calc ulation based on the Chronic Kidney Disease Epidemiology Collaboration (CKD-EPI) equation refit without adjustment for race Performed By: #### L 17, [id number] ####Software Designer: LESLEE HERNANDEZ ([id number])[facility] ([facility])[address] Glucose [Mass/Vol] 95 mg/dL Normal 74-100 [facility] Comment on above: Performed By: #### L AB17, [id number] ####Software Designer: LESLEE HERNANDEZ ([id number])[facility] ([facility])[address] [place] [address] Potassium [Moles/Vol] 3.6 mmol/L Normal 3.5-5.1 [facility] Comment on above: Result Comment: [facility] potassium values may be up to 0.5 mmol/L lower than serum values. Performed By: #### L AB17, [id number] ####Software Designer: LESLEE HERNANDEZ ([id number])[facility] ([facility])[address] Protein [Mass/Vol] 6.3 g/dL Low 6.4-8.3 [facility] Comment on above: Performed By: #### L AB17, [id number] ####Software Designer: LESLEE HERNANDEZ ([id number])[facility] ([facility])[address] Sodium [Moles/Vol] 140 mmol/L Normal 136-145 [facility] Comment on above: Performed By: #### L AB17, [id number] ####Software Designer: LESLEE HERNANDEZ ([id number])[facility] (SBHLAB)[address] Urea nitrogen [Mass/Vol] 35 mg/dL High 8-21 [facility] Comment on above: Performed By: #### L AB17, [id number] ####Software Designer: LESLEE HERNANDEZ ([id number])[facility] (SBHLAB)[address] Comprehensive metabolic 1998 panelon 07-27-2024 Albumin [Mass/Vol] 3.1 g/dL Low 3.5 - 5.0 g/dL [facility] ALP [Catalytic activity/Vol] 175 U/L High 40 - 150 U/L [facility] ALT [Catalytic activity/Vol] 60 U/L High NINF - 40 U/L [facility] Anion gap [Moles/Vol] 14 mmol/L High 3 - 13 mmol/L [facility] AST [Catalytic activity/Vol] 31 U/L NINF - 34 U/L [facility] Bilirubin [Mass/Vol] 1.3 mg/dL High [facility] mg/dL [facility] Calcium [Mass/Vol] 8.4 mg/dL 8.4 - 10. 2 mg/dL [facility] Chloride [Moles/Vol] 102 mmol/L 98 - 10 7 mmol/L [facility] CO2 [Moles/Vol] 24 mmol/L 22 - 29 mmol/L [facility] Creatinine [Mass/Vol] 1.84 mg/dL High 0.72 - 1.25 mg/dL [facility] GFR/1.73 sq M.predicted (S/P/Bld) [Vol rate/Area] 45.2 mL/min Low - PINF [facility] Comment on above: Calculation based on the Chronic Kidney Disease Epidemiology Collaboration (CKD-EPI) equation refit without adjustment for race Glucose [Mass/Vol] 95 mg/dL 74 - 100 mg/dL [facility] Interpretation and review of laboratory results Abnormal [facility] Potassium [Moles/Vol] 3.6 mmol/L 3.5 - 5.1 mmol/L [facility] Comment on above: Plasma potassium heidi ues may be up to 0.5 mmol/L lower than serum values. Protein [Mass/Vol] 6.3 g/dL Low 6.4 - 8.3 g/dL [facility] Sodium [Moles/Vol] 140 mmol/L 136 - 145 mmol/L [facility] Urea nitrogen [Mass/Vol] 35 mg/dL High 8 - 21 mg/dL [facility] Medical Studenton 07-27-2024 Medical Student Normal [facility] NT PRO BNPon 07-27-2024 Natriuretic peptide B (Bld) [Mass/Vol] 62703 pg/mL High <125 [facility] Comment on above: Performed By: #### L AB17, [id number] ####Software Designer: LESLEE HERNANDEZ ([id number])[facility] [place] [address] Natriuretic peptide B [Mass/ Vol]on 07-27-2024 Interpretation and review of laboratory results Abnormal [facility] Natriuretic peptide B (Bld) [Mass/Vol] 43893 pg/mL High NINF - 125 pg/mL [facility] Progress Noteon 07-27-2024 Progress Note Normal [facility] Progress Note Normal [facility] Progress Note Normal [facility] [id number] 07-26-2024 [id number] Normal [facility] 30on 07-26-2024 30 Normal [facility] 30 Normal [facility] CBC W Auto Differential pane l (Bld)on 07-26-2024 Basophils (Bld) [#/Vol] 0 10*3/uL 0.0 - 0.2 10*3/uL [facility] Basophils/100 WBC (Bld) 0.4 % 0.0 - 2.0 % [facility] Eosinophils (Bld) [#/Vol] 0.1 10*3/uL 0.0 - 0.5 10*3/uL [facility] Eosinophils/100 WBC (Bld) 1.5 % 0.0 - 6.0 % [facility] Erythrocyte distribution width (RBC) [Ratio] 13.4 % 11.5 - 15.0 % [facility] Hematocrit (Bld) [Volume fraction] 43 % 40.0 - 52.0 % [facility] Hemoglobin (Bld) [Mass/Vol] 14.1 g/dL 13.0 - 18.0 g/dL [facility] Immature granulocytes (Bld) [#/Vol] 0 10*3/uL NINF - 0.1 10*3/uL [facility] Immature granulocytes/100 WBC (Bld) 0.2 % 0.0 - 2.0 % [facility] Interpretation and review of laboratory results Abnormal [facility] Lymphocytes (Bld) [#/Vol] 1.8 10*3/uL 1.0 - 4.3 10*3/uL [facility] Lymphocytes/100 WBC (Bld) 33 % 15.0 - 45.0 % [facility] MCH (RBC) [Entitic mass] 33.3 pg 26.0 - 34.0 pg [facility] MCHC (RBC) [Mass/Vol] 32.8 % 30.5 - 36.0 % [facility] MCV (RBC) [Entitic vol] 101.4 fL High 77.0 - 99.0 fL [facility] Monocytes (Bld) [#/Vol] 0.4 10*3/uL 0.0 - 0.9 10*3/uL [facility] Monocytes/100 WBC (Bld) 6.9 % 5.0 - 13.0 % [facility] Neutrophils (Bld) [#/Vol] 3.2 10*3/uL 1.8 - 7.5 10*3/uL [facility] Neutrophils/100 WBC (Bld) 58 % 38.0 - 82.0 % [facility] Nucleated RBC/100 WBC (Bld) [Ratio] 0 % [facility] Platelet mean volume (Bld) [Entitic vol] 9.6 fL 9.0 - 12.7 fL [facility] Platelets (Bld) [#/Vol] 240 10*3/uL 140 - 440 10*3/uL [facility] RBC (Bld) [#/Vol] 4.24 10*6/uL Low 4.40 - 5.9 0 10*6/uL [facility] WBC (Bld) [#/Vol] 5.5 10*3/uL 3.6 - 10.7 10*3/uL [facility] CBC WITH AUTO DIFFERENTIALon 07-26-2024 Basophils (Bld) [#/Vol] 0.0 10*3/uL Normal 0.0-0.2 [facility] Comment on above: Performed By: #### L [id number] ####Software Designer: LESLEE TURKTYRONE ([id number])[facility] [place] (SBHLAB)[address] Basophils/100 WBC (Bld) 0.4 % Normal 0.0-2.0 [facility] Comment on above: Performed By: #### L [id number] ####Software Designer: LESLEE TUKRTYRONE ([id number])[facility] (SBHLAB)[address] Eosinophils (Bld) [#/Vol] 0.1 10*3/uL Normal 0.0-0.5 [facility] Comment on above: Performed By: #### L [id number] ####Software Designer: LESLEE TURKTYRONE ([id number])[facility] (SBHLAB)[address] Eosinophils/100 WBC (Bld) 1.5 % Normal 0.0-6.0 [facility] Comment on above: Performed By: #### L [id number] ####Software Designer: LESLEE TURKTYRONE ([id number])[facility] (SBHLAB)[address] Erythrocyte distribution width (RBC) [Ratio] 13.4 % Normal 11.5-15.0 [facility] Comment on above: Performed By: #### L [id number] ####Software Designer: LESLEE TURKTYRONE ([id number])[facility] [place] (SBHLAB)[address] Hematocrit (Bld) [Volume fraction] 43.0 % Normal 40.0-52.0 [facility] Comment on above: Performed By: #### L [id number] ####Software Designer: LESLEE HERNANDEZ ([id number])[facility] [place] (SBHLAB)[address] Hemoglobin (Bld) [Mass/Vol] 14.1 g/dL Normal 13.0-18.0 [facility] Comment on above: Performed By: #### L [id number] ####Software Designer: ELSLEE HERNANDEZ ([id number])[facility] (SB[facility])[address] IMMATURE GRANS % 0.2 % Normal 0.0-2.0 [facility] Comment on above: Performed By: #### L [id number] ####Software Designer: LESLEE HERNANDEZ ([id number])[facility] [place] (SBAB)[address] IMMATURE GRANS ABSOLUTE 0.0 10*3/uL Normal <0.1 [facility] Comment on above: Performed By: #### L [id number] ####Software Designer: LESLEE HERNANDEZ ([id number])[facility] (SBAB)[address] Lymphocytes (Bld) [#/Vol] 1.8 10*3/uL Normal 1.0-4.3 [facility] Comment on above: Performed By: #### L [id number] ####Software Designer: LESLEE HERNADNEZ ([id number])[facility] [place] (SBHLAB)[address] Lymphocytes/100 WBC (Bld) 33.0 % Normal 15.0-45.0 [facility] Comment on above: Performed By: #### L [id number] ####Software Designer: LESLEE HERNANDEZ ([id number])[facility] ([facility] MCH (RBC) [Entitic mass] 33.3 pg Normal 26.0-34.0 [facility] Comment on above: Performed By: #### L [id number] ####Software Designer: LESLEE HERNANDEZ ([id number])[facility] (SBAB)[address] MCHC 32.8 % Normal 30.5-36.0 [facility] Comment on above: Performed By: #### L [id number] ####Software Designer: LESLEE HERNANDEZ ([id number])[facility] (SBHLAB)[address] MCV (RBC) [Entitic vol] 101.4 fL High 77.0-99.0 [facility] Comment on above: Performed By: #### L [id number] ####Software Designer: LESLEE HERNANDEZ ([id number])[facility] [place] (SBHLAB)[address] Monocytes (Bld) [#/Vol] 0.4 10*3/uL Normal 0.0-0.9 [facility] Comment on above: Performed By: #### L [id number] ####Software Designer: LESLEE HERNANDEZ ([id number])[facility] (SBHLAB)[address] Monocytes/100 WBC (Bld) 6.9 % Normal 5.0-13.0 [facility] Comment on above: Performed By: #### L [id number] ####Software Designer: LESLEE HERNANDEZ ([id number])[facility] [place] (SBHLAB)[address] [place] [address] NEUTROPHILS ABSOLUTE 3.2 10*3/uL Normal 1.8-7.5 [facility] Comment on above: Performed By: #### L [id number] ####Software Designer: LESLEE HERNANDEZ ([id number])[facility] [place] (SBHLAB)[address] Neutrophils/100 WBC (Bld) 58.0 % Normal 38.0-82.0 [facility] Comment on above: Performed By: #### L [id number] ####Software Designer: LESLEE HERNANDEZ ([id number])[facility] [place] (SBHLAB)[address] NRBC 0.0 /100 WBCs Normal 0.0-2.0 [facility] Comment on above: Performed By: #### L [id number] ####Software Designer: LESLEE HERNANDEZ ([id number])[facility] [place] (SBHLAB)[address] Platelet mean volume (Bld) [Entitic vol] 9.6 fL Normal 9.0-12.7 [facility] Comment on above: Performed By: #### L [id number] ####Software Designer: LESLEE HERNANDEZ ([id number])[facility] [place] (SBHLAB)[address] Platelets (Bld) [#/Vol] 240 10*3/uL Normal 140-440 [facility] Comment on above: Performed By: #### L [id number] ####Software Designer: LESLEE HERNANDEZ ([id number])[facility] [place] (SBHLAB)[address] RBC (Bld) [#/Vol] 4.24 10*6/uL Low 4.40-5.90 [facility] Comment on above: Performed By: #### L [id number] ####Software Designer: LESLEE HERNANDEZ ([id number])[facility] [place] (SBHLAB)[address] WBC (Bld) [#/Vol] 5.5 10*3/uL Normal 3.6-10.7 [facility] Comment on above: Performed By: #### L [id number] ####Software Designer: LESLEE HERNANDEZ ([id number])[facility] [place] (SBHLAB)[address] COMPREHENSIVE METABOLIC PANE Ming 07-26-2024 Albumin [Mass/Vol] 2.9 g/dL Low 3.5-5.0 [facility] Comment on above: Performed By: #### L AB17, [id number], ZWS535 ####Software Designer: LESLEE HERNANDEZ ([id number])[facility] [place] (SBHLAB)[address] ALP [Catalytic activity/Vol] 166 U/L High 40-150 [facility] Comment on above: Performed By: #### L AB17, EGH210, JHA037 ####Software Designer: LESLEE HERNANDEZ ([id number])[facility] [place] (SBHLAB)[address] ALT [Catalytic activity/Vol] 57 U/L High <40 [facility] Comment on above: Performed By: #### L AB17, HHP894, VCV988 ####Software Designer: LESLEE HERNANDEZ ([id number])[facility] [place] (SBHLAB)[address] Anion gap [Moles/Vol] 12 mmol/L Normal 3-13 [facility] Comment on above: Performed By: #### L AB17, BYH604, QMP285 ####Software Designer: LESLEE HERNANDEZ ([id number])[facility] [place] (SBHLAB)[address] AST [Catalytic activity/Vol] 27 U/L Normal <34 [facility] Comment on above: Performed By: #### L AB17, FYN398, UPB267 ####Software Designer: LESLEE HERNANDEZ ([id number])[facility] (SBHLAB)[address] Bilirubin [Mass/Vol] 1.4 mg/dL High <1.2 [facility] Comment on above: Performed By: #### L AB17, LAC640, MNH362 ####Software Designer: LESLEE HERNANDEZ ([id number])[facility] [place] (SBHLAB)[address] [place] [address] [place] Calcium [Mass/Vol] 8.5 mg/dL Normal 8.4-10.2 [facility] Comment on above: Performed By: #### L AB17, NPC163, MWY823 ####Software Designer: LESLEE HERNANDEZ ([id number])[facility] [place] (SBHLAB)[address] [place] [address] [place] Chloride [Moles/Vol] 103 mmol/L Normal 98-107 [facility] Comment on above: Performed By: #### L AB17, KEM398, FUG884 ####Software Designer: LESLEE HERNANDEZ ([id number])[facility]ENTERKeyon [place] (SBHLAB)[address] CO2 [Moles/Vol] 23 mmol/L Normal 22-29 [facility] Comment on above: Performed By: #### L AB17, EUE591, WBE336 ####Software Designer: LESLEE HERNANDEZ ([id number])[facility] (SBHLAB)[address] Creatinine [Mass/Vol] 2.14 mg/dL High 0.72-1.25 [facility] Comment on above: Performed By: #### L AB17, PZM086, HHJ780 ####Software Designer: LESLEE HERNANDEZ ([id number])[facility] (SBHLAB)[address] GLOMERULAR FILTRATION RATE ML/MIN/1.73 SQ M.PREDICTED 37.7 mL/min/1.73m*2 Low >60.0 [facility] Comment on above: Result Comment: Calc ulation based on the Chronic Kidney Disease Epidemiology Collaboration (CKD-EPI) equation refit without adjustment for race Performed By: #### L AB17, QWG786, XPC682 ####Software Designer: LESLEE HERNANDEZ ([id number])[facility]ENTERKeyon [facility] (SBHLAB)[address] [place] [address] [place] Glucose [Mass/Vol] 114 mg/dL High 74-100 [facility] Comment on above: Performed By: #### L AB17, ADR891, LIF746 ####Software Designer: LESLEE HERNANDEZ ([id number])[facility] (SBHLAB)[address] Potassium [Moles/Vol] 3.4 mmol/L Low 3.5-5.1 [facility] Comment on above: Result Comment: Plas ma potassium values may be up to 0.5 mmol/L lower than serum values. Performed By: #### L AB17, USI555, GWE118 ####Software Designer: LESLEE MCNEILLRAMON ([id number])[facility] (SBHLAB)[address] Protein [Mass/Vol] 5.9 g/dL Low 6.4-8.3 [facility] Comment on above: Performed By: #### L AB17, MWV328, FSO121 ####Software Designer: LESLEE MCNEILLNinoskaTYRONE ([id number])[facility] (SBHLAB)[address] Sodium [Moles/Vol] 138 mmol/L Normal 136-145 [facility] Comment on above: Performed By: #### L AB17, JZR819, JRI591 ####Software Designer: LESLEE TORRESCER ([id number])[facility] (SBHLAB)[address] Urea nitrogen [Mass/Vol] 40 mg/dL High 8-21 [facility] Comment on above: Performed By: #### L AB17, SNR404, VIU363 ####Software Designer: LESLEE MCNEILLRAMON ([id number])[facility] (SBHLAB)[address] [place] [address] Comprehensive metabolic 1998 panelon 07-26-2024 Albumin [Mass/Vol] 2.9 g/dL Low 3.5 - 5.0 g/dL [facility] ALP [Catalytic activity/Vol] 166 U/L High 40 - 150 U/L [facility] ALT [Catalytic activity/Vol] 57 U/L High NINF - 40 U/L [facility] Anion gap [Moles/Vol] 12 mmol/L 3 - 13 mmol/L [facility] AST [Catalytic activity/Vol] 27 U/L NINF - 34 U/L [facility] Bilirubin [Mass/Vol] 1.4 mg/dL High NINF - 1.2 mg/dL [facility] Calcium [Mass/Vol] 8.5 mg/dL 8.4 - 10. 2 mg/dL [facility] Chloride [Moles/Vol] 103 mmol/L 98 - 10 7 mmol/L [facility] CO2 [Moles/Vol] 23 mmol/L 22 - 29 mmol/L [facility] Creatinine [Mass/Vol] 2.14 mg/dL High 0.72 - 1.25 mg/dL [facility] GFR/1.73 sq M.predicted (S/P/Bld) [Vol rate/Area] 37.7 mL/min Low - PINF [facility] Comment on above: Calculation based on the Chronic Kidney Disease Epidemiology Collaboration (CKD-EPI) equation refit without adjustment for race Glucose [Mass/Vol] 114 mg/dL High 74 - 100 mg/dL [facility] Interpretation and review of laboratory results Abnormal [facility] Potassium [Moles/Vol] 3.4 mmol/L Low 3.5 - 5.1 mmol/L [facility] Comment on above: Plasma potassium heidi ues may be up to 0.5 mmol/L lower than serum values. Protein [Mass/Vol] 5.9 g/dL Low 6.4 - 8.3 g/dL [facility] Sodium [Moles/Vol] 138 mmol/L 136 - 145 mmol/L [facility] Urea nitrogen [Mass/Vol] 40 mg/dL High 8 - 21 mg/dL [facility] Consulton 07-26-2024 Consult Normal [facility] Laboratory - Chemistry and C hemistry - challengeon 07-26-2024 Magnesium [Mass/Vol] 1.8 mg/dL 1.6 - 2 .6 mg/dL [facility] MAGNESIUMon 07-26-2024 Magnesium [Mass/Vol] 1.8 mg/dL Normal 1.6-2.6 [facility] Comment on above: Result Comment: ALEJANDRO Aleman COMMENTS:Higher values can be expected in females during menses. Performed By: #### L AB17, [id number], [id number] ####Software Designer: LESLEE HERNANDEZ ([id number])[facility] (SBHLAB)[address] [place] [address] Magnesium [Mass/Vol]on 07-26 Interpretation and review of laboratory results Normal [facility] Higher values can be expected in females during menses. [facility] Medical Studenton 07-26-2024 Medical Student Normal [facility] NT PRO BNPon 07-26-2024 Natriuretic peptide B (Bld) [Mass/Vol] 90454 pg/mL High <125 [facility] Comment on above: Performed By: #### L AB17, TQM596, HHU071 ####Software Designer: LESLEE HERNANDEZ ([id number])[facility] (SBHLAB)[address] [place] [address] Natriuretic peptide B [Mass/ Vol]on 07-26-2024 Interpretation and review of laboratory results Abnormal [facility] Natriuretic peptide B (Bld) [Mass/Vol] 43671 pg/mL High NINF - 125 pg/mL [facility] Nursing Noteon 07-26-2024 Nursing Note Pt refusing carvedilol and potassium at this time, states he doesn't take meds until 2099. Medication moved to 2100. Normal [facility] Nursing Note Normal [facility] Nursing Note Normal [facility] Nursing Note Attempted to draw la b but patient refused at this time.informed the provider.Electronical ly signed by Osiris Huber RN Normal [facility] Progress Noteon 07-26-2024 Progress Note Normal [facility] Progress Note Normal [facility] [id number] 07-25-2024 [id number] [facility] Consulton 07-25-2024 Consult Normal [facility] Nursing Noteon 07-25-2024 Nursing Note Attempted to draw la b but patient is refusing to draw lab.Informed the doctor. Normal [facility] Progress Noteon 07-25-2024 Progress Note Normal [facility] Progress Note Normal [facility] Progress Note Normal [facility] Progress Note Nutrition rescreen complete. Pt assigned a level one for nutrition care. Normal [facility] 30on 07-24-2024 30 Normal [facility] 30 Normal [facility] BASIC METABOLIC PANELon 07-01 Anion gap [Moles/Vol] 10 mmol/L Normal 3-13 [facility] Comment on above: Performed By: #### L AB15, NVU666, UAR740 ####Software Designer: LESLEE HERNANDEZ ([id number])[facility] [place] (SBHLAB)[address] Calcium [Mass/Vol] 8.5 mg/dL Normal 8.4-10.2 [facility] Comment on above: Performed By: #### L AB15, PEI469, WIS444 ####Software Designer: LESLEE HERNANDEZ ([id number])[facility] [place] (SBHLAB)[address] Chloride [Moles/Vol] 108 mmol/L High 98-107 [facility] Comment on above: Performed By: #### L AB15, GPX534, AWO942 ####Software Designer: LESLEE HERNANDEZ ([id number])[facility] [place] (SBHLAB)[address] CO2 [Moles/Vol] 20 mmol/L Low 22-29 [facility] Comment on above: Performed By: #### L AB15, LEO335, ABV819 ####Software Designer: LESLEE HERNANDEZ ([id number])[facility] [place] (SBHLAB)[address] Creatinine [Mass/Vol] 2.19 mg/dL High 0.72-1.25 [facility] Comment on above: Performed By: #### L AB15, HYG075, LYX067 ####Software Designer: LESLEE HERNANDEZ ([id number])[facility] [place] (SBHLAB)[address] GLOMERULAR FILTRATION RATE ML/MIN/1.73 SQ M.PREDICTED 36.7 mL/min/1.73m*2 Low >60.0 [facility] Comment on above: Result Comment: Calc ulation based on the Chronic Kidney Disease Epidemiology Collaboration (CKD-EPI) equation refit without adjustment for race Performed By: #### L AB15, AAE444, HFB612 ####Software Designer: LESLEE HERNANDEZ ([id number])[facility] [place] (SBHLAB)[address] Glucose [Mass/Vol] 108 mg/dL High 74-100 [facility] Comment on above: Performed By: #### L AB15, CMG450, QBZ325 ####Software Designer: LESLEE HERNANDEZ ([id number])[facility]ENTERKey[facility] [place]Marguer[place] (SBHLAB)[address] Potassium [Moles/Vol] 4.3 mmol/L Normal 3.5-5.1 [facility] Comment on above: Result Comment: [facility] potassium values may be up to 0.5 mmol/L lower than serum values. Performed By: #### L AB15, KSW555, BQL445 ####Software Designer: LESLEE HERNANDEZ ([id number])[facility]ENTERKeyon [place] (SBHLAB)[address] Sodium [Moles/Vol] 138 mmol/L Normal 136-145 [facility] Comment on above: Performed By: #### L AB15, WEC304, IOJ853 ####Software Designer: LESLEE HERNANDEZ ([id number])[facility]ENTERKeyon [facility]IM[facility]ITALMarguerite (SBHLAB)[address] [place] [address] [place] Urea nitrogen [Mass/Vol] 38 mg/dL High 8-21 [facility] Comment on above: Performed By: #### L AB15, CNW165, YEM295 ####Software Designer: LESLEE HERNANDEZ ([id number])[facility]ENTERKeyon [facility]USALL[facility] (SBHLAB)[address] [place] [address] [place] Anion gap [Moles/Vol] 12 mmol/L Normal 3-13 [facility] Comment on above: Performed By: #### L AB15, [id number] ####Software Designer: LESLEE HERNANDEZ ([id number])[facility] (SBHLAB)[address] [place] [address] [place] Calcium [Mass/Vol] 8.3 mg/dL Low 8.4-10.2 [facility] Comment on above: Performed By: #### L AB15, [id number] ####Software Designer: LESLEE HERNANDEZ ([id number])[facility] (SBHLAB)[address] [place] [address] [place] Chloride [Moles/Vol] 107 mmol/L Normal 98-107 [facility] Comment on above: Performed By: #### L AB15, RGD974 ####Software Designer: LESLEE HERNANDEZ ([id number])[facility]ENTER[facility] (SBHLAB)[address] CO2 [Moles/Vol] 19 mmol/L Low 22-29 [facility] Comment on above: Performed By: #### L AB15, AUX171 ####Software Designer: LESLEE HERNANDEZ ([id number])[facility] (SBHLAB)[address] Creatinine [Mass/Vol] 1.98 mg/dL High 0.72-1.25 [facility] Comment on above: Performed By: #### L AB15, [id number] ####Software Designer: LESLEE HERNANDEZ ([id number])[facility] (SBHLAB)[address] GLOMERULAR FILTRATION RATE ML/MIN/1.73 SQ M.PREDICTED 41.4 mL/min/1.73m*2 Low >60.0 [facility] Comment on above: Result Comment: Calc ulation based on the Chronic Kidney Disease Epidemiology Collaboration (CKD-EPI) equation refit without adjustment for race Performed By: #### L AB15, UZS060 ####Software Designer: LESLEE HERNANDEZ ([id number])[facility] (SBHLAB)[address] Glucose [Mass/Vol] 107 mg/dL High 74-100 [facility] Comment on above: Performed By: #### L AB15, ERQ060 ####Software Designer: LESLEE HERNANDEZ ([id number])[facility] (SBHLAB)[address] Potassium [Moles/Vol] 4.4 mmol/L Normal 3.5-5.1 [facility] Comment on above: Result Comment: Plas ma potassium values may be up to 0.5 mmol/L lower than serum values. Performed By: #### L AB15, VAK600 ####Software Designer: LESLEE HERNANDEZ ([id number])[facility] (SBHLAB)[address] Sodium [Moles/Vol] 138 mmol/L Normal 136-145 [facility] Comment on above: Performed By: #### L AB15, [id number] ####Software Designer: LESLEE HERNANDEZ ([id number])[facility] (SBHLAB)[address] Urea nitrogen [Mass/Vol] 37 mg/dL High 8-21 [facility] Comment on above: Performed By: #### L AB15, NPT237 ####Software Designer: LESLEE HERNANDEZ ([id number])[facility] (SBHLAB)[address] Basic metabolic 1998 panelon 07-24-2024 Anion gap [Moles/Vol] 10 mmol/L 3 - 13 mmol/L [facility] Calcium [Mass/Vol] 8.5 mg/dL 8.4 - 10. 2 mg/dL [facility] Chloride [Moles/Vol] 108 mmol/L High 98 - 10 7 mmol/L [facility] CO2 [Moles/Vol] 20 mmol/L Low 22 - 29 mmol/L [facility] Creatinine [Mass/Vol] 2.19 mg/dL High 0.72 - 1.25 mg/dL [facility] GFR/1.73 sq M.predicted (S/P/Bld) [Vol rate/Area] 36.7 mL/min Low - PINF [facility] Comment on above: Calculation based on the Chronic Kidney Disease Epidemiology Collaboration (CKD-EPI) equation refit without adjustment for race Glucose [Mass/Vol] 108 mg/dL High 74 - 100 mg/dL [facility] Interpretation and review of laboratory results Abnormal [facility] Potassium [Moles/Vol] 4.3 mmol/L 3.5 - 5.1 mmol/L [facility] Comment on above: Plasma potassium heidi ues may be up to 0.5 mmol/L lower than serum values. Sodium [Moles/Vol] 138 mmol/L 136 - 145 mmol/L [facility] Urea nitrogen [Mass/Vol] 38 mg/dL High 8 - 21 mg/dL [facility] Anion gap [Moles/Vol] 12 mmol/L 3 - 13 mmol/L [facility] Calcium [Mass/Vol] 8.3 mg/dL Low 8.4 - 10. 2 mg/dL [facility] Chloride [Moles/Vol] 107 mmol/L 98 - 10 7 mmol/L [facility] CO2 [Moles/Vol] 19 mmol/L Low 22 - 29 mmol/L [facility] Creatinine [Mass/Vol] 1.98 mg/dL High 0.72 - 1.25 mg/dL [facility] GFR/1.73 sq M.predicted (S/P/Bld) [Vol rate/Area] 41.4 mL/min Low - PINF [facility] Comment on above: Calculation based on the Chronic Kidney Disease Epidemiology Collaboration (CKD-EPI) equation refit without adjustment for race Glucose [Mass/Vol] 107 mg/dL High 74 - 100 mg/dL [facility] Interpretation and review of laboratory results Abnormal [facility] Potassium [Moles/Vol] 4.4 mmol/L 3.5 - 5.1 mmol/L [facility] Comment on above: Plasma potassium heidi ues may be up to 0.5 mmol/L lower than serum values. Sodium [Moles/Vol] 138 mmol/L 136 - 145 mmol/L [facility] Urea nitrogen [Mass/Vol] 37 mg/dL High 8 - 21 mg/dL [facility] CBC W Auto Differential pane l (Bld)on 07-24-2024 Basophils (Bld) [#/Vol] 0 10*3/uL 0.0 - 0.2 10*3/uL [facility] Basophils/100 WBC (Bld) 0.5 % 0.0 - 2.0 % [facility] Eosinophils (Bld) [#/Vol] 0 10*3/uL 0.0 - 0.5 10*3/uL [facility] Eosinophils/100 WBC (Bld) 0.5 % 0.0 - 6.0 % [facility] [facility] Erythrocyte distribution width (RBC) [Ratio] 13.9 % 11.5 - 15.0 % [facility] Hematocrit (Bld) [Volume fraction] 45 % 40.0 - 52.0 % [facility] Hemoglobin (Bld) [Mass/Vol] 14.4 g/dL 13.0 - 18.0 g/dL [facility] Immature granulocytes (Bld) [#/Vol] 0 10*3/uL NINF - 0.1 10*3/uL [facility] Immature granulocytes/100 WBC (Bld) 0.1 % 0.0 - 2.0 % [facility] Interpretation and review of laboratory results Abnormal [facility] Lymphocytes (Bld) [#/Vol] 2.5 10*3/uL 1.0 - 4.3 10*3/uL [facility] Lymphocytes/100 WBC (Bld) 33.2 % 15.0 - 45.0 % [facility] MCH (RBC) [Entitic mass] 33.2 pg 26.0 - 34.0 pg [facility] MCHC (RBC) [Mass/Vol] 32 % 30.5 - 36.0 % [facility] MCV (RBC) [Entitic vol] 103.7 fL High 77.0 - 99.0 fL [facility] Monocytes (Bld) [#/Vol] 0.5 10*3/uL 0.0 - 0.9 10*3/uL [facility] Monocytes/100 WBC (Bld) 7.3 % 5.0 - 13.0 % [facility] Neutrophils (Bld) [#/Vol] 4.3 10*3/uL 1.8 - 7.5 10*3/uL [facility] Neutrophils/100 WBC (Bld) 58.4 % 38.0 - 82.0 % [facility] Nucleated RBC/100 WBC (Bld) [Ratio] 0 % [facility] Platelet mean volume (Bld) [Entitic vol] 9.6 fL 9.0 - 12.7 fL [facility] Platelets (Bld) [#/Vol] 225 10*3/uL 140 - 440 10*3/uL [facility] RBC (Bld) [#/Vol] 4.34 10*6/uL Low 4.40 - 5.9 0 10*6/uL [facility] WBC (Bld) [#/Vol] 7.4 10*3/uL 3.6 - 10.7 10*3/uL [facility] CBC WITH AUTO DIFFERENTIALon 07-24-2024 Basophils (Bld) [#/Vol] 0.0 10*3/uL Normal 0.0-0.2 [facility] Comment on above: Performed By: #### L [id number] ####Software Designer: LESLEE HERNANDEZ ([id number])[facility] (SBHLAB)[address] Basophils/100 WBC (Bld) 0.5 % Normal 0.0-2.0 [facility] Comment on above: Performed By: #### L [id number] ####Software Designer: LESLEE HERNANDEZ ([id number])[facility] (SBHLAB)[address] Eosinophils (Bld) [#/Vol] 0.0 10*3/uL Normal 0.0-0.5 [facility] Comment on above: Performed By: #### L [id number] ####Software Designer: LESLEE TURKTYRONE ([id number])[facility] [place] (SB[facility])[address] Eosinophils/100 WBC (Bld) 0.5 % Normal 0.0-6.0 [facility] Comment on above: Performed By: #### L [id number] ####Software Designer: LESLEE TURKTYRONE ([id number])[facility] (SBHLAB)[address] Erythrocyte distribution width (RBC) [Ratio] 13.9 % Normal 11.5-15.0 [facility] Comment on above: Performed By: #### L [id number] ####Software Designer: LESLEE HERNANDEZ ([id number])[facility] [place] (SB[facility]AB)[address] Hematocrit (Bld) [Volume fraction] 45.0 % Normal 40.0-52.0 [facility] Comment on above: Performed By: #### L [id number] ####Software Designer: LESLEE HERNANDEZ ([id number])[facility] (SBHLAB)[address] Hemoglobin (Bld) [Mass/Vol] 14.4 g/dL Normal 13.0-18.0 [facility] Comment on above: Performed By: #### L [id number] ####Software Designer: LESLEE HERNANDEZ ([id number])[facility] [place] (SB[facility])[address] IMMATURE GRANS % 0.1 % Normal 0.0-2.0 [facility] Comment on above: Performed By: #### L [id number] ####Software Designer: LESLEE HERNANDEZ ([id number])[facility] IMMATURE GRANS ABSOLUTE 0.0 10*3/uL Normal <0.1 [facility] Comment on above: Performed By: #### L [id number] ####Software Designer: LESLEE HERNANDEZ ([id number])[facility] (SB[facility])[address] Lymphocytes (Bld) [#/Vol] 2.5 10*3/uL Normal 1.0-4.3 [facility] Comment on above: Performed By: #### L [id number] ####Software Designer: LESLEE HERNANDEZ ([id number])[facility] ([facility])[address] Lymphocytes/100 WBC (Bld) 33.2 % Normal 15.0-45.0 [facility] Comment on above: Performed By: #### L [id number] ####Software Designer: LESLEE HERNANDEZ ([id number])[facility] (SB[facility])[address] MCH (RBC) [Entitic mass] 33.2 pg Normal 26.0-34.0 [facility] Comment on above: Performed By: #### L [id number] ####Software Designer: LESLEE HERNANDEZ ([id number])[facility] ([facility])[address] MCHC 32.0 % Normal 30.5-36.0 [facility] Comment on above: Performed By: #### L [id number] ####Software Designer: LESLEE HERNANDEZ ([id number])[facility] (SB[facility]AB)[address] MCV (RBC) [Entitic vol] 103.7 fL High 77.0-99.0 [facility] Comment on above: Performed By: #### L [id number] ####Software Designer: LESLEE TURKTYRONE ([id number])[facility] [place] (SB[facility])[address] Monocytes (Bld) [#/Vol] 0.5 10*3/uL Normal 0.0-0.9 [facility] Comment on above: Performed By: #### L [id number] ####Software Designer: LESLEE HERNANDEZ ([id number])[facility] (SBHLAB)[address] Monocytes/100 WBC (Bld) 7.3 % Normal 5.0-13.0 [facility] Comment on above: Performed By: #### L [id number] ####Software Designer: LESLEE HERNANDEZ ([id number])[facility] [place] (SB[facility])[address] NEUTROPHILS ABSOLUTE 4.3 10*3/uL Normal 1.8-7.5 [facility] Comment on above: Performed By: #### L [id number] ####Software Designer: LESLEE HERNANDEZ ([id number])[facility] [place] (SB[facility])[address] Neutrophils/100 WBC (Bld) 58.4 % Normal 38.0-82.0 [facility] Comment on above: Performed By: #### L [id number] ####Software Designer: LESLEE HERNANDEZ ([id number])[facility] [place] (SB[facility])[address] NRBC 0.0 /100 WBCs Normal 0.0-2.0 [facility] Comment on above: Performed By: #### L [id number] ####Software Designer: LESLEE HERNANDEZ ([id number])[facility] CENTERKeyon MCF[place]ENMarguer[place] (SBHLAB)[address] Platelet mean volume (Bld) [Entitic vol] 9.6 fL Normal 9.0-12.7 [facility] Comment on above: Performed By: #### L [id number] ####Software Designer: LESLEE HERNANDEZ ([id number])[facility] CENTERKeyon [facility] (SB[facility])[address] Platelets (Bld) [#/Vol] 225 10*3/uL Normal 140-440 [facility] Comment on above: Performed By: #### L [id number] ####Software Designer: LESLEE HERNANDEZ ([id number])[facility]ENTER[facility] ([facility])[address] RBC (Bld) [#/Vol] 4.34 10*6/uL Low 4.40-5.90 [facility] Comment on above: Performed By: #### L [id number] ####Software Designer: LESLEE HERNANDEZ ([id number])[facility] CENTERKeyon [place] (SBHLAB)[address] [place] [address] WBC (Bld) [#/Vol] 7.4 10*3/uL Normal 3.6-10.7 [facility] Comment on above: Performed By: #### L [id number] ####Software Designer: LESLEE HERNANDEZ ([id number])[facility] CENTERKeyon LINDEFRAÍNN (SBHLAB)[address] Consulton 07-24-2024 Consult Normal [facility] Laboratory - Chemistry and C hemistry - challengeon 07-24-2024 Magnesium [Mass/Vol] 2.1 mg/dL 1.6 - 2 .6 mg/dL [facility] Magnesium [Mass/Vol] 2 mg/dL 1.6 - 2 .6 mg/dL [facility] TSH Qn 3.18 m[IU]/L [facility] MAGNESIUMon 07-24-2024 Magnesium [Mass/Vol] 2.1 mg/dL Normal 1.6-2.6 [facility] Comment on above: Result Comment: ALEJANDRO R COMMENTS:Higher values can be expected in females during menses. Performed By: #### L AB15, [id number], [id number] ####Software Designer: LESLEE HERNANDEZ ([id number])[facility] ([facility])[address] [place] [address] Magnesium [Mass/Vol] 2.0 mg/dL Normal 1.6-2.6 [facility] Comment on above: Result Comment: ALEJANDRO R COMMENTS:Higher values can be expected in females during menses. Performed By: #### L AB15, [id number] ####Software Designer: LESLEE HERNANDEZ ([id number])[facility] ([facility])[address] [place] [address] Magnesium [Mass/Vol]on 07-24 Interpretation and review of laboratory results Normal [facility] Higher values can be expected in females during menses. [facility] Interpretation and review of laboratory results Normal [facility] Higher values can be expected in females during menses. [facility] NT PRO BNPon 07-24-2024 Natriuretic peptide B (Bld) [Mass/Vol] 35814 pg/mL High <125 [facility] Comment on above: Performed By: #### L AB15, [id number], [id number] ####Software Designer: LESLEE HERNANDEZ ([id number])[facility] ([facility])[address] [place] [address] Natriuretic peptide B [Mass/ Vol]on 07-24-2024 Interpretation and review of laboratory results Abnormal [facility] Natriuretic peptide B (Bld) [Mass/Vol] 74731 pg/mL High NINF - 125 pg/mL [facility] No Panel Informationon 07-24 [facility] 2h Troponin HS (Serial 2nd Troponin) 30 ng/L NINF - 35 ng/L [facility] Interpretation and review of laboratory results Normal [facility] Progress Noteon 07-24-2024 Progress Note Normal [facility] TSH Qnon 07-24-2024 Interpretation and review of laboratory results Normal [facility] 36on 07-23-2024 36 Pt is now scheduled to be seen in the [facility] CHF clinic next week 07/28/2024 at 9:30 am. I left another message asking that he hold Entresto until seen in the CHF clinic and continue lasix. [facility] 36 LM for pt that they are seeing Dr Astudillo on 07/28/2024 @ 9:30a [facility] 36 Patient will need scheduled for a Follow up with heart failure clinic FAYE per Yulissa. Please call patient to schedule. [facility] 36 [facility] BASIC METABOLIC PANELon 07-01 Anion gap [Moles/Vol] 15 mmol/L High 3-13 [facility] Comment on above: Performed By: #### L AB106, LAB15, [id number] ####Software Designer: LESLEE HERNANDEZ ([id number])[facility] (SBHLAB)[address] Calcium [Mass/Vol] 9.1 mg/dL Normal 8.4-10.2 [facility] Comment on above: Performed By: #### L AB106, LAB15, [id number] ####Software Designer: LESLEE HERNANDEZ ([id number])[facility] (SBHLAB)[address] [place] [address] [place] Chloride [Moles/Vol] 106 mmol/L Normal 98-107 [facility] Comment on above: Performed By: #### L AB106, LAB15, [id number] ####Software Designer: LESLEE HERNANDEZ ([id number])[facility] (SBHLAB)[address] [place] [address] [place] CO2 [Moles/Vol] 19 mmol/L Low 22-29 [facility] Comment on above: Performed By: #### L AB106, LAB15, [id number] ####Software Designer: LESLEE HERNANDEZ ([id number])[facility] (SBHLAB)[address] [place] [address] [place] Creatinine [Mass/Vol] 2.24 mg/dL High 0.72-1.25 [facility] Comment on above: Performed By: #### L AB106, LAB15, [id number] ####Software Designer: LESLEE HERNANDEZ ([id number])[facility] (SBHLAB)[address] [place] [address] [place] GLOMERULAR FILTRATION RATE ML/MIN/1.73 SQ M.PREDICTED 35.7 mL/min/1.73m*2 Low >60.0 [facility] Comment on above: Result Comment: Calc ulation based on the Chronic Kidney Disease Epidemiology Collaboration (CKD-EPI) equation refit without adjustment for race Performed By: #### L AB106, LAB15, [id number] ####Software Designer: LESLEE HERNANDEZ ([id number])[facility] (SBHLAB)[address] Glucose [Mass/Vol] 102 mg/dL High 74-100 [facility] Comment on above: Performed By: #### L AB106, LAB15, [id number] ####Software Designer: LESLEE HERNANDEZ ([id number])[facility] (HLAB)[address] [place] [address] [place] Potassium [Moles/Vol] 4.6 mmol/L Normal 3.5-5.1 [facility] Comment on above: Result Comment: [facility] potassium values may be up to 0.5 mmol/L lower than serum values. Performed By: #### L AB106, LAB15, [id number] ####Software Designer: LESLEE HERNANDEZ ([id number])[facility] (SBHLAB)[address] [place] [address] [place] Sodium [Moles/Vol] 140 mmol/L Normal 136-145 [facility] Comment on above: Performed By: #### L AB106, LAB15, [id number] ####Software Designer: LESLEE HERNANDEZ ([id number])[facility] (SB[facility])[address] Urea nitrogen [Mass/Vol] 37 mg/dL High 8-21 [facility] Comment on above: Performed By: #### L AB106, LAB15, [id number] ####Software Designer: LESLEE HERNANDEZ ([id number])[facility]ITALMarg[facility] (SBHLAB)[address] Basic metabolic 1998 panelon 07-23-2024 Anion gap [Moles/Vol] 15 mmol/L High 3 - 13 mmol/L [facility] Calcium [Mass/Vol] 9.1 mg/dL 8.4 - 10. 2 mg/dL [facility] Chloride [Moles/Vol] 106 mmol/L 98 - 10 7 mmol/L [facility] CO2 [Moles/Vol] 19 mmol/L Low 22 - 29 mmol/L [facility] Creatinine [Mass/Vol] 2.24 mg/dL High 0.72 - 1.25 mg/dL [facility] GFR/1.73 sq M.predicted (S/P/Bld) [Vol rate/Area] 35.7 mL/min Low - PINF [facility] Comment on above: Calculation based on the Chronic Kidney Disease Epidemiology Collaboration (CKD-EPI) equation refit without adjustment for race Glucose [Mass/Vol] 102 mg/dL High 74 - 100 mg/dL [facility] Interpretation and review of laboratory results Abnormal [facility] Potassium [Moles/Vol] 4.6 mmol/L 3.5 - 5.1 mmol/L [facility] Comment on above: Plasma potassium heidi ues may be up to 0.5 mmol/L lower than serum values. Sodium [Moles/Vol] 140 mmol/L 136 - 145 mmol/L [facility] Urea nitrogen [Mass/Vol] 37 mg/dL High 8 - 21 mg/dL [facility] CBC W Auto Differential pane l (Bld)on 07-23-2024 Basophils (Bld) [#/Vol] 0 10*3/uL 0.0 - 0.2 10*3/uL [facility] Basophils/100 WBC (Bld) 0.1 % 0.0 - 2.0 % [facility] Eosinophils (Bld) [#/Vol] 0 10*3/uL 0.0 - 0.5 10*3/uL [facility] Eosinophils/100 WBC (Bld) 0.1 % 0.0 - 6.0 % [facility] Erythrocyte distribution width (RBC) [Ratio] 13.8 % 11.5 - 15.0 % [facility] Hematocrit (Bld) [Volume fraction] 46.5 % 40.0 - 52.0 % [facility] Hemoglobin (Bld) [Mass/Vol] 15.2 g/dL 13.0 - 18.0 g/dL [facility] Immature granulocytes (Bld) [#/Vol] 0 10*3/uL NINF - 0.1 10*3/uL [facility] Immature granulocytes/100 WBC (Bld) 0.3 % 0.0 - 2.0 % [facility] Interpretation and review of laboratory results Abnormal [facility] Lymphocytes (Bld) [#/Vol] 2.1 10*3/uL 1.0 - 4.3 10*3/uL [facility] Lymphocytes/100 WBC (Bld) 23.4 % 15.0 - 45.0 % [facility] MCH (RBC) [Entitic mass] 33.4 pg 26.0 - 34.0 pg [facility] MCHC (RBC) [Mass/Vol] 32.7 % 30.5 - 36.0 % [facility] MCV (RBC) [Entitic vol] 102.2 fL High 77.0 - 99.0 fL [facility] Monocytes (Bld) [#/Vol] 0.8 10*3/uL 0.0 - 0.9 10*3/uL [facility] Monocytes/100 WBC (Bld) 8.6 % 5.0 - 13.0 % [facility] Neutrophils (Bld) [#/Vol] 5.9 10*3/uL 1.8 - 7.5 10*3/uL [facility] Neutrophils/100 WBC (Bld) 67.5 % 38.0 - 82.0 % [facility] Nucleated RBC/100 WBC (Bld) [Ratio] 0 % [facility] Platelet mean volume (Bld) [Entitic vol] 9.5 fL 9.0 - 12.7 fL [facility] Platelets (Bld) [#/Vol] 255 10*3/uL 140 - 440 10*3/uL [facility] RBC (Bld) [#/Vol] 4.55 10*6/uL 4.40 - 5.9 0 10*6/uL [facility] WBC (Bld) [#/Vol] 8.8 10*3/uL 3.6 - 10.7 10*3/uL [facility] CBC WITH AUTO DIFFERENTIALon 07-23-2024 Basophils (Bld) [#/Vol] 0.0 10*3/uL Normal 0.0-0.2 [facility] Comment on above: Performed By: #### L [id number] ####Software Designer: LESLEE HERNANDEZ ([id number])[facility] [place] (SB[facility])[address] Basophils/100 WBC (Bld) 0.1 % Normal 0.0-2.0 [facility] Comment on above: Performed By: #### L [id number] ####Software Designer: LESLEE HERNANDEZ ([id number])[facility] [place] (SB[facility])[address] Eosinophils (Bld) [#/Vol] 0.0 10*3/uL Normal 0.0-0.5 [facility] Comment on above: Performed By: #### L [id number] ####Software Designer: LESLEE HERNANDEZ ([id number])[facility] [place] (SBHLAB)[address] [place] [address] Eosinophils/100 WBC (Bld) 0.1 % Normal 0.0-6.0 [facility] Comment on above: Performed By: #### L [id number] ####Software Designer: LESLEE HERNANDEZ ([id number])[facility] [place] (SB[facility])[address] Erythrocyte distribution width (RBC) [Ratio] 13.8 % Normal 11.5-15.0 [facility] Comment on above: Performed By: #### L [id number] ####Software Designer: LESLEE HERNANDEZ ([id number])[facility] [place] (SB[facility])[address] Hematocrit (Bld) [Volume fraction] 46.5 % Normal 40.0-52.0 [facility] Comment on above: Performed By: #### L [id number] ####Software Designer: LESLEE TURKTYRONE ([id number])[facility] ([facility])[address] Hemoglobin (Bld) [Mass/Vol] 15.2 g/dL Normal 13.0-18.0 [facility] Comment on above: Performed By: #### L [id number] ####Software Designer: LESLEE MARY ([id number])[facility] ([facility])[address] IMMATURE GRANS % 0.3 % Normal 0.0-2.0 [facility] Comment on above: Performed By: #### L [id number] ####Software Designer: LESLEE TURKTYRONE ([id number])[facility] ([facility])[address] [place] [address] IMMATURE GRANS ABSOLUTE 0.0 10*3/uL Normal <0.1 [facility] Comment on above: Performed By: #### L [id number] ####Software Designer: LESLEE TURKTYRONE ([id number])[facility] ([facility])[address] [place] [address] Lymphocytes (Bld) [#/Vol] 2.1 10*3/uL Normal 1.0-4.3 [facility] Comment on above: Performed By: #### L [id number] ####Software Designer: LESLEE TURKTYRONE ([id number])[facility] ([facility])[address] Lymphocytes/100 WBC (Bld) 23.4 % Normal 15.0-45.0 [facility] Comment on above: Performed By: #### L [id number] ####Software Designer: LESLEE TURKTYRONE ([id number])[facility] ([facility])[address] [place] [address] MCH (RBC) [Entitic mass] 33.4 pg Normal 26.0-34.0 [facility] Comment on above: Performed By: #### L [id number] ####Software Designer: LESLEE MCNEILLNinoskaTYRONE ([id number])[facility] [place] (SB[facility])[address] MCHC 32.7 % Normal 30.5-36.0 [facility] Comment on above: Performed By: #### L [id number] ####Software Designer: LESLEE MARY ([id number])[facility] [place] (SB[facility])[address] MCV (RBC) [Entitic vol] 102.2 fL High 77.0-99.0 [facility] Comment on above: Performed By: #### L [id number] ####Software Designer: LESLEE MARY ([id number])[facility] [place] ([facility])[address] Monocytes (Bld) [#/Vol] 0.8 10*3/uL Normal 0.0-0.9 [facility] Comment on above: Performed By: #### L [id number] ####Software Designer: LESLEE TURKTYRONE ([id number])[facility] [place] ([facility])[address] Monocytes/100 WBC (Bld) 8.6 % Normal 5.0-13.0 [facility] Comment on above: Performed By: #### L [id number] ####Software Designer: LESLEE TURKTYRONE ([id number])[facility] [place] (SB[facility])[address] NEUTROPHILS ABSOLUTE 5.9 10*3/uL Normal 1.8-7.5 [facility] Comment on above: Performed By: #### L [id number] ####Software Designer: LESLEE TURKTYRONE ([id number])[facility] [place] ([facility])[address] Neutrophils/100 WBC (Bld) 67.5 % Normal 38.0-82.0 [facility] Comment on above: Performed By: #### L [id number] ####Software Designer: LESLEE HERNANDEZ ([id number])[facility] [place] ([facility])[address] NRBC 0.0 /100 WBCs Normal 0.0-2.0 [facility] Comment on above: Performed By: #### L [id number] ####Software Designer: LESLEE HERNANDEZ ([id number])[facility] [place] ([facility])[address] Platelet mean volume (Bld) [Entitic vol] 9.5 fL Normal 9.0-12.7 [facility] Comment on above: Performed By: #### L [id number] ####Software Designer: LESLEE HERNANDEZ ([id number])[facility] [place] ([facility])[address] Platelets (Bld) [#/Vol] 255 10*3/uL Normal 140-440 [facility] Comment on above: Performed By: #### L [id number] ####Software Designer: LESLEE HERNANDEZ ([id number])[facility] [place] ([facility])[address] RBC (Bld) [#/Vol] 4.55 10*6/uL Normal 4.40-5.90 [facility] Comment on above: Performed By: #### L [id number] ####Software Designer: LESLEE HERNANDEZ ([id number])[facility] [place] (SBHLAB)[address] WBC (Bld) [#/Vol] 8.8 10*3/uL Normal 3.6-10.7 [facility] Comment on above: Performed By: #### L [id number] ####Software Designer: LESLEE HERNANDEZ ([id number])[facility] [place] (SBHLAB)[address] ECG 12-LEADon 07-23-2024 ECG 12-LEAD IMPRESSION: Sinus tachycardia Anterior infarct, old Electronically Signed On 07-23-2024 21:59:14 EST by Bertha Pichardo Normal [facility] ED Nursing Noteon 07-23-2024 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 Normal [facility] ED Nursing Note Normal [facility] ED Provider Noteon ED Provider Note Normal [facility] HIGH SENSITIVITY TROPONIN, S ERIAL BASELINEon 07-23-2024 TROPONIN HIGH SENSITIVITY BASELINE 33 ng/L Normal <=35 [facility] Comment on above: Performed By: #### L AB106, LAB15, [id number] ####Software Designer: LESLEE HERNANDEZ ([id number])[facility] ([facility])[address] [place] [address] HIGH SENSITIVITY TROPONIN, S ERIAL, SECOND TESTon 07-23-2024 TROPONIN HS, SERIAL REFLEX, TEST TWO 30 ng/L Normal <=35 [facility] Comment on above: Performed By: #### L [id number], [id number] ####Software Designer: LESLEE HERNANDEZ ([id number])[facility] ([facility])[address] [place] [address] NT PRO BNPon 07-23-2024 Natriuretic peptide B (Bld) [Mass/Vol] 37788 pg/mL High <125 [facility] Comment on above: Performed By: #### L AB106, LAB15, [id number] ####Software Designer: LESLEE HERNANDEZ ([id number])[facility] (SB[facility])[address] [place] [address] [place] Natriuretic peptide B [Mass/ Vol]on 07-23-2024 Interpretation and review of laboratory results Abnormal [facility] Natriuretic peptide B (Bld) [Mass/Vol] 04414 pg/mL High NINF - 125 pg/mL [facility] [employer] No Panel Informationon 07-23 Interpretation and review of laboratory results Normal [facility] Troponin HS Serial Baseline 33 ng/L NINF - 35 ng/L [facility] [employer] P Cylinder -29 degrees [facility] DE Interval 122 ms [facility] QRS Cylinder 116 degrees [facility] QRSD Interval 154 ms [facility] QT Interval 369 ms [facility] QTC Interval 520 ms [facility] T Wave Cylinder -29 degrees [facility] Sinus tachycardia Anterior infarct, old Electronically Signed On 07-23-2024 21:59:14 EST by Bertha Pichardo CV Bertha Grady D O - 07/23/2024 IMPRESSION: Sinus tachycardia Anterior infarct, old Electronically Signed On 07-23-2024 21:59:14 EST by Bertha Pichardo [facility] THYROID STIMULATING HORMONEo n 07-23-2024 THYROID STIMULATING HORMONE 3.18 uIU/mL Normal 0.35-4.94 [facility] Comment on above: Performed By: #### L [id number], [id number] ####Software Designer: LESLEE HERNANDEZ ([id number])[facility] ([facility])[address] [place] [address] Vital signson 07-23-2024 Heart rate 119 /min bpm [facility] XR Chest Single viewon 07-23 Stable cardiomegaly. No acute process. Report Dictated on Electronically Signed By: Juan Pereira MD Electronically Signed Date/Time: 07/23/2024 8:20 PM [facility] 1980 [id number] Exam Date/Time: 07/23/2024 20:07 Procedure: XR CHEST 1 VIEW Ordering Provider: ALVARENGA SAMANTHA Reason For Exam: DYSPNEA EXAM: XR Chest, 1 View CLINICAL INDICATION: DYSPNEA TECHNIQUE: Frontal view of the chest. COMPARISON: July 11, 2024. FINDINGS: LUNGS AND PLEURAL SPACES: Unremarkable. No consolidation. No pneumothorax. HEART: Stable cardiomegaly. MEDIASTINUM: Unremarkable. Normal mediastinal contour. BONES/JOINTS: Unremarkable. No acute fracture. [facility] Juan Pereira MD - 07/23/2024 Patient Name: CARLO MEDINA : 1980 [id number] Exam Date/Time: 07/23/2024 20:07 Procedure: XR CHEST [...] Electronically Signed Date/Time: 07/23/2024 8:20 PM EST [facility] Radiology Study observation (narrative) [facility] XR Chest Single viewOrdered By: Juan Pereira on 07-23-2024 [facility] [employer] Work Phone: Progress Noteon 07-21-2024 Progress Note Normal [facility] 36on 07-20-2024 36 Unable to contact patient X2 Normal [facility] 36on 07-19-2024 36 Normal [facility] 36on 07-16-2024 36 Normal [facility] COMPREHENSIVE METABOLIC PANE Ming 07-16-2024 Albumin [Mass/Vol] 2.3 g/dL Low 3.5-5.0 [facility] Comment on above: Performed By: #### L AB103, LAB17 ####Software Designer: LESLEE HERNANDEZ ([id number])[facility] ([facility])[address] [place] [address] ALP [Catalytic activity/Vol] 142 U/L Normal 40-150 [facility] Comment on above: Performed By: #### L AB103, LAB17 ####Software Designer: LESLEE HERNANDEZ ([id number])[facility] ([facility])[address] [place] [address] ALT [Catalytic activity/Vol] 60 U/L High <40 [facility] Comment on above: Performed By: #### L AB103, LAB17 ####Software Designer: LESLEE HERNANDEZ ([id number])[facility] [place] (SBHLAB)[address] Anion gap [Moles/Vol] 7 mmol/L Normal 3-13 [facility] Comment on above: Performed By: #### L AB103, LAB17 ####Software Designer: LESLEE HERNANDEZ ([id number])[facility] [place] (SBHLAB)[address] AST [Catalytic activity/Vol] 56 U/L High <34 [facility] Comment on above: Result Comment: TCSi gnificant interference from hemolysis. Result integrity compromised. Interpret with caution. Performed By: #### L AB103, LAB17 ####Software Designer: LESLEE HERNANDEZ ([id number])[facility] [place] (SBHLAB)[address] Bilirubin [Mass/Vol] 0.8 mg/dL Normal <1.2 [facility] Comment on above: Performed By: #### L AB103, LAB17 ####Software Designer: LESLEE HERNANDEZ ([id number])[facility] [place] (SB[facility])[address] Calcium [Mass/Vol] 7.0 mg/dL Low 8.4-10.2 [facility] Comment on above: Performed By: #### L AB103, LAB17 ####Software Designer: LESLEE HERNANDEZ ([id number])[facility] [place] (SBHLAB)[address] [place] [address] [place] Chloride [Moles/Vol] 109 mmol/L High 98-107 [facility] Comment on above: Performed By: #### L AB103, LAB17 ####Software Designer: LESLEE HERNANDEZ ([id number])[facility] [place] (SBHLAB)[address] [place] [address] [place] CO2 [Moles/Vol] 17 mmol/L Low 22-29 [facility] Comment on above: Performed By: #### L AB103, LAB17 ####Software Designer: LESLEE HERNANDEZ ([id number])[facility] CENTERKeyon [place] (SBHLAB)[address] Creatinine [Mass/Vol] 1.40 mg/dL High 0.72-1.25 [facility] Comment on above: Performed By: #### L 103, LAB17 ####Software Designer: LESLEE HERNANDEZ ([id number])[facility]ENTERKeyon [place] (SBHLAB)[address] GLOMERULAR FILTRATION RATE ML/MIN/1.73 SQ M.PREDICTED 62.8 mL/min/1.73m*2 Normal >60.0 [facility] Comment on above: Result Comment: Calc ulation based on the Chronic Kidney Disease Epidemiology Collaboration (CKD-EPI) equation refit without adjustment for race Performed By: #### L JACKI, LAB17 ####Software Designer: LESLEE HERNANDEZ ([id number])[facility]ENTERKeyon [place] (SBHLAB)[address] Glucose [Mass/Vol] 102 mg/dL High 74-100 [facility] Comment on above: Performed By: #### L 103, LAB17 ####Software Designer: LESLEE HERNANDEZ ([id number])[facility] ([facility])[address] [place] [address] Potassium [Moles/Vol] 4.8 mmol/L Normal 3.5-5.1 [facility] Comment on above: Result Comment: TCSi gnificant interference from hemolysis. Result integrity compromised. Interpret with caution. Performed By: #### L AB103, LAB17 ####Software Designer: LESLEE HERNANDEZ ([id number])[facility] (SBHLAB)[address] Protein [Mass/Vol] 5.2 g/dL Low 6.4-8.3 [facility] Comment on above: Result Comment: TCPo tential interference from hemolysis Performed By: #### L AB103, LAB17 ####Software Designer: LESLEE HERNANDEZ ([id number])[facility] (SBHLAB)[address] Sodium [Moles/Vol] 133 mmol/L Low 136-145 [facility] Comment on above: Performed By: #### L AB103, LAB17 ####Software Designer: LESLEE HERNANDEZ ([id number])[facility] (SBHLAB)[address] Urea nitrogen [Mass/Vol] 27 mg/dL High 8-21 [facility] Comment on above: Performed By: #### L AB103, LAB17 ####Software Designer: LESLEE HERNANDEZ ([id number])[facility] (SB[facility]AB)[address] Comprehensive metabolic 1998 panelon 07-16-2024 Albumin [Mass/Vol] 2.3 g/dL Low 3.5 - 5.0 g/dL [facility] ALP [Catalytic activity/Vol] 142 U/L 40 - 150 U/L [facility] ALT [Catalytic activity/Vol] 60 U/L High [facility] - 40 U/L [facility] Anion gap [Moles/Vol] 7 mmol/L 3 - 13 mmol/L [facility] AST [Catalytic activity/Vol] 56 U/L High [facility] - 34 U/L [facility] Comment on above: TC Significant interference from hemolysis. Result integrity compromised. Interpret with caution. Bilirubin [Mass/Vol] 0.8 mg/dL [facility] - 1.2 mg/dL [facility] Calcium [Mass/Vol] 7 mg/dL Low 8.4 - 10. 2 mg/dL [facility] Chloride [Moles/Vol] 109 mmol/L High 98 - 10 7 mmol/L [facility] CO2 [Moles/Vol] 17 mmol/L Low 22 - 29 mmol/L [facility] Creatinine [Mass/Vol] 1.4 mg/dL High 0.72 - 1.25 mg/dL [facility] GFR/1.73 sq M.predicted (S/P/Bld) [Vol rate/Area] 62.8 mL/min - PINF [facility] Comment on above: Calculation based on the Chronic Kidney Disease Epidemiology Collaboration (CKD-EPI) equation refit without adjustment for race Glucose [Mass/Vol] 102 mg/dL High 74 - 100 mg/dL [facility] Interpretation and review of laboratory results Abnormal [facility] Potassium [Moles/Vol] 4.8 mmol/L 3.5 - 5.1 mmol/L [facility] Comment on above: TC Significant interference from hemolysis. Result integrity compromised. Interpret with caution. Protein [Mass/Vol] 5.2 g/dL Low 6.4 - 8.3 g/dL [facility] Comment on above: TC Potential interference from hemolysis Sodium [Moles/Vol] 133 mmol/L Low 136 - 145 mmol/L [facility] Urea nitrogen [Mass/Vol] 27 mg/dL High 8 - 21 mg/dL [facility] Laboratory - Chemistry and C hemistry - challengeon 07-16-2024 Magnesium [Mass/Vol] 1.8 mg/dL 1.6 - 2 .6 mg/dL [facility] MAGNESIUMon 07-16-2024 Magnesium [Mass/Vol] 1.8 mg/dL Normal 1.6-2.6 [facility] Comment on above: Result Comment: ALEJANDRO Aleman COMMENTS:Higher values can be expected in females during menses. Performed By: #### L AB103, LAB17 ####Software Designer: LESLEE HERNANDEZ ([id number])[facility] ([facility])[address] [place] [address] Magnesium [Mass/Vol]on 07-16 Interpretation and review of laboratory results Normal [facility] Higher values can be expected in females during menses. [facility] No Panel Informationon 07-16 [facility] Progress Noteon 07-16-2024 Progress Note Normal [facility] XR Abdomen Single viewon Few dilated loops of air-filled small bowel are noted is nonspecific and could represent ileus versus early or partial small bowel obstruction. Continued follow-up is recommended. Report Dictated on Electronically Signed By: Joel Hi MD Electronically Signed Date/Time: 07/16/2024 3:01 PM [facility] [employer] Patient Name: CARLO MEDINA : 1980 [...] are degenerative changes of the lumbar spine. [facility] Joel Hi MD - 07/16/2024 Patient [...] Electronically Signed Date/Time: 07/16/2024 3:01 PM EST [facility] Radiology Study observation (narrative) [facility] XR Abdomen Single viewOrdere d By: Joel Hi on 07-16-2024 [facility] Work Phone: 30on 07-15-2024 30 Normal [facility] 30 Normal [facility] 30 Normal [facility] BASIC METABOLIC PANELon 06-30 Anion gap [Moles/Vol] 4 mmol/L Normal 3-13 [facility] Comment on above: Performed By: #### L AB103, [id number], LAB15 ####Software Designer: LESLEE HENRANDEZ ([id number])[facility] [place] (SBHLAB)[address] Calcium [Mass/Vol] 6.9 mg/dL Low 8.4-10.2 [facility] Comment on above: Performed By: #### L AB103, HNL335, LAB15 ####Software Designer: LESLEE HERNANDEZ ([id number])[facility] [place] (SBHLAB)[address] Chloride [Moles/Vol] 108 mmol/L High 98-107 [facility] Comment on above: Performed By: #### L AB103, HOB077, LAB15 ####Software Designer: LESLEE HERNANDEZ ([id number])[facility] [place] (SBHL[facility])[address] CO2 [Moles/Vol] 22 mmol/L Normal 22-29 [facility] Comment on above: Performed By: #### L AB103, [id number], LAB15 ####Software Designer: LESLEE HERNANDEZ ([id number])[facility] CENTERKeyon [facility] (SB[facility])[address] Creatinine [Mass/Vol] 1.54 mg/dL High 0.72-1.25 [facility] Comment on above: Performed By: #### L AB103, AAK772, LAB15 ####Software Designer: LESLEE HERNANDEZ ([id number])[facility] [place] (SBHLAB)[address] [place] [address] [place] GLOMERULAR FILTRATION RATE ML/MIN/1.73 SQ M.PREDICTED 56.0 mL/min/1.73m*2 Low >60.0 [facility] Comment on above: Result Comment: Calc ulation based on the Chronic Kidney Disease Epidemiology Collaboration (CKD-EPI) equation refit without adjustment for raceORDER COMMENTS:Slightly hemolyzed Performed By: #### L AB103, [id number], LAB15 ####Software Designer: LESLEE HERNANDEZ ([id number])[facility] [place] (SBHLAB)[address] [place] [address] [place] Glucose [Mass/Vol] 108 mg/dL High 74-100 [facility] Comment on above: Performed By: #### L AB103, VUZ007, LAB15 ####Software Designer: LESLEE HERNANDEZ ([id number])[facility] ([facility])[address] Potassium [Moles/Vol] 4.5 mmol/L Normal 3.5-5.1 [facility] Comment on above: Result Comment: TCSi gnificant interference from hemolysis. Result integrity compromised. Interpret with caution. Performed By: #### L AB103, [id number], LAB15 ####Software Designer: LESLEE HERNANDEZ ([id number])[facility] ([facility])[address] Sodium [Moles/Vol] 134 mmol/L Low 136-145 [facility] Comment on above: Performed By: #### L AB103, [id number], LAB15 ####Software Designer: LESLEE HERNANDEZ ([id number])[facility] ([facility])[address] Urea nitrogen [Mass/Vol] 30 mg/dL High 8-21 [facility] Comment on above: Performed By: #### L AB103, BRO069, LAB15 ####Software Designer: LESLEE HERNANDEZ ([id number])[facility] ([facility])[address] [place] [address] Basic metabolic 1998 panelon 07-15-2024 Anion gap [Moles/Vol] 4 mmol/L 3 - 13 mmol/L [facility] Calcium [Mass/Vol] 6.9 mg/dL Low 8.4 - 10. 2 mg/dL [facility] Chloride [Moles/Vol] 108 mmol/L High 98 - 10 7 mmol/L [facility] CO2 [Moles/Vol] 22 mmol/L 22 - 29 mmol/L [facility] Creatinine [Mass/Vol] 1.54 mg/dL High 0.72 - 1.25 mg/dL [facility] GFR/1.73 sq M.predicted (S/P/Bld) [Vol rate/Area] 56 mL/min Low - PINF [facility] Comment on above: Calculation based on the Chronic Kidney Disease Epidemiology Collaboration (CKD-EPI) equation refit without adjustment for race Glucose [Mass/Vol] 108 mg/dL High 74 - 100 mg/dL [facility] Interpretation and review of laboratory results Abnormal [facility] Potassium [Moles/Vol] 4.5 mmol/L 3.5 - 5.1 mmol/L [facility] Comment on above: TC Significant interference from hemolysis. Result integrity compromised. Interpret with caution. Sodium [Moles/Vol] 134 mmol/L Low 136 - 145 mmol/L [facility] Urea nitrogen [Mass/Vol] 30 mg/dL High 8 - 21 mg/dL [facility] Slightly hemolyzed [facility] CBC (HEMOGRAM)on 07-15-2024 Erythrocyte distribution width (RBC) [Ratio] 13.7 % Normal 11.5-15.0 [facility] Comment on above: Performed By: #### L AB294 ####Software Designer: LESLEE HERNANDEZ ([id number])[facility] (SBAB)[address] [place] [address] Hematocrit (Bld) [Volume fraction] 37.7 % Low 40.0-52.0 [facility] Comment on above: Performed By: #### L AB294 ####Software Designer: LESLEE HERNANDEZ ([id number])[facility] (SB[facility])[address] [place] [address] Hemoglobin (Bld) [Mass/Vol] 12.2 g/dL Low 13.0-18.0 [facility] Comment on above: Performed By: #### L AB294 ####Software Designer: LESLEE HERNANDEZ ([id number])[facility] (SBHLAB)[address] MCH (RBC) [Entitic mass] 33.7 pg Normal 26.0-34.0 [facility] Comment on above: Performed By: #### L AB294 ####Software Designer: LESLEE HERNANDEZ ([id number])[facility] (SB[facility])[address] MCHC 32.4 % Normal 30.5-36.0 [facility] Comment on above: Performed By: #### L AB294 ####Software Designer: LESLEE HERNANDEZ ([id number])[facility] [place] (SBHLAB)[address] MCV (RBC) [Entitic vol] 104.1 fL High 77.0-99.0 [facility] Comment on above: Performed By: #### L AB294 ####Software Designer: LESLEE HERNANDEZ ([id number])[facility] [place] (SBHL[facility])[address] Platelet mean volume (Bld) [Entitic vol] 10.2 fL Normal 9.0-12.7 [facility] Comment on above: Performed By: #### L AB294 ####Software Designer: LESLEE HERNANDEZ ([id number])[facility] [place] (SB[facility])[address] Platelets (Bld) [#/Vol] 242 10*3/uL Normal 140-440 [facility] Comment on above: Performed By: #### L AB294 ####Software Designer: LESLEE HERNANDEZ ([id number])[facility] [place] (SB[facility])[address] RBC (Bld) [#/Vol] 3.62 10*6/uL Low 4.40-5.90 [facility] Comment on above: Performed By: #### L AB294 ####Software Designer: LESLEE HERNANDEZ ([id number])[facility] [place] (SBHLAB)[address] [place] [address] [place] WBC (Bld) [#/Vol] 5.5 10*3/uL Normal 3.6-10.7 [facility] Comment on above: Performed By: #### L AB294 ####Software Designer: LESLEE HERNANDEZ ([id number])[facility] [place] (SBHL[facility])[address] CBC panel Auto (Bld)on 07-15 Erythrocyte distribution width (RBC) [Ratio] 13.7 % 11.5 - 15.0 % [facility] Hematocrit (Bld) [Volume fraction] 37.7 % Low 40.0 - 52.0 % [facility] Hemoglobin (Bld) [Mass/Vol] 12.2 g/dL Low 13.0 - 18.0 g/dL [facility] Interpretation and review of laboratory results Abnormal [facility] MCH (RBC) [Entitic mass] 33.7 pg 26.0 - 34.0 pg [facility] MCHC (RBC) [Mass/Vol] 32.4 % 30.5 - 36.0 % [facility] MCV (RBC) [Entitic vol] 104.1 fL High 77.0 - 99.0 fL [facility] Platelet mean volume (Bld) [Entitic vol] 10.2 fL 9.0 - 12.7 fL [facility] Platelets (Bld) [#/Vol] 242 10*3/uL 140 - 440 10*3/uL [facility] RBC (Bld) [#/Vol] 3.62 10*6/uL Low 4.40 - 5.9 0 10*6/uL [facility] WBC (Bld) [#/Vol] 5.5 10*3/uL 3.6 - 10.7 10*3/uL [facility] - Chemistry and C hemistry - challengeon 07-15-2024 Magnesium [Mass/Vol] 1.7 mg/dL 1.6 - 2 .6 mg/dL [facility] MAGNESIUMon 07-15-2024 Magnesium [Mass/Vol] 1.7 mg/dL Normal 1.6-2.6 [facility] Comment on above: Result Comment: ALEJANDRO Aleman COMMENTS:Higher values can be expected in females during menses. Performed By: #### L AB103, [id number], LAB15 ####Software Designer: LESLEE HERNANDEZ ([id number])[facility] (SB[facility])[address] Magnesium [Mass/Vol]on 07-15 Interpretation and review of laboratory results Normal [facility] Higher values can be expected in females during menses. [facility] NT PRO BNPon 07-15-2024 Natriuretic peptide B (Bld) [Mass/Vol] 86563 pg/mL High <125 [facility] Comment on above: Performed By: #### L AB103, CLH997, LAB15 ####Software Designer: LESLEE HERNANDEZ ([id number])[facility] ([facility])[address] [place] [address] Natriuretic peptide B [Mass/ Vol]on 07-15-2024 Interpretation and review of laboratory results Abnormal [facility] Natriuretic peptide B (Bld) [Mass/Vol] 30293 pg/mL High NINF - 125 pg/mL [facility] No Panel Informationon 07-15 [facility] Progress Noteon 07-15-2024 Progress Note Normal [facility] Progress Note Normal [facility] 30on 07-14-2024 30 Normal [facility] [id number] 07-14-2024 [id number] Normal [facility] [id number] 07-14-2024 [id number] Normal [facility] BASIC METABOLIC PANELon 06-30 Anion gap [Moles/Vol] 10 mmol/L Normal 3-13 [facility] Comment on above: Performed By: #### L AB103, LAB15, LAB20, LAB99 ####Software Designer: LESLEE HERNANDEZ ([id number])[facility] ([facility])[address] [place] [address] Calcium [Mass/Vol] 8.3 mg/dL Low 8.4-10.2 [facility] Comment on above: Performed By: #### L AB103, LAB15, LAB20, LAB99 ####Software Designer: LESLEE HERNANDEZ ([id number])[facility] ([facility] [place] [address] [place] Chloride [Moles/Vol] 104 mmol/L Normal 98-107 [facility] Comment on above: Performed By: #### L AB103, LAB15, LAB20, LAB99 ####Software Designer: LESLEE HERNANDEZ ([id number])[facility] ([facility])[address] [place] [address] [place] CO2 [Moles/Vol] 23 mmol/L Normal 22-29 [facility] Comment on above: Performed By: #### L AB103, LAB15, LAB20, LAB99 ####Software Designer: LESLEE HERNANDEZ ([id number])[facility] ([facility])[address] Creatinine [Mass/Vol] 1.81 mg/dL High 0.72-1.25 [facility] Comment on above: Performed By: #### L AB103, LAB15, LAB20, LAB99 ####Software Designer: LESLEE HERNANDEZ ([id number])[facility] ([facility])[address] GLOMERULAR FILTRATION RATE ML/MIN/1.73 SQ M.PREDICTED 46.1 mL/min/1.73m*2 Low >60.0 [facility] Comment on above: Result Comment: Calc ulation based on the Chronic Kidney Disease Epidemiology Collaboration (CKD-EPI) equation refit without adjustment for race Performed By: #### L AB103, LAB15, LAB20, LAB99 ####Software Designer: LESLEE HERNANDEZ ([id number])[facility] ([facility])[address] [place] [address] Glucose [Mass/Vol] 115 mg/dL High 74-100 [facility] Comment on above: Performed By: #### L AB103, LAB15, LAB20, LAB99 ####Software Designer: LESLEE HERNANDEZ ([id number])[facility] (HLAB)[address] [place] [address] [place] Potassium [Moles/Vol] 4.2 mmol/L Normal 3.5-5.1 [facility] Comment on above: Result Comment: [facility] potassium values may be up to 0.5 mmol/L lower than serum values. Performed By: #### L AB103, LAB15, LAB20, LAB99 ####Software Designer: LESLEE HERNANDEZ ([id number])[facility] ([facility])[address] Sodium [Moles/Vol] 137 mmol/L Normal 136-145 [facility] Comment on above: Performed By: #### L AB103, LAB15, LAB20, LAB99 ####Software Designer: LESLEE HERNANDEZ ([id number])[facility] ([facility])[address] Urea nitrogen [Mass/Vol] 33 mg/dL High 8-21 [facility] Comment on above: Performed By: #### L AB103, LAB15, LAB20, LAB99 ####Software Designer: LESLEEFIDELIA HERNANDEZ ([id number])[facility] ([facility])[address] Basic metabolic 1998 panelon 07-14-2024 Anion gap [Moles/Vol] 10 mmol/L 3 - 13 mmol/L [facility] Calcium [Mass/Vol] 8.3 mg/dL Low 8.4 - 10. 2 mg/dL [facility] Chloride [Moles/Vol] 104 mmol/L 98 - 10 7 mmol/L [facility] CO2 [Moles/Vol] 23 mmol/L 22 - 29 mmol/L [facility] Creatinine [Mass/Vol] 1.81 mg/dL High 0.72 - 1.25 mg/dL [facility] GFR/1.73 sq M.predicted (S/P/Bld) [Vol rate/Area] 46.1 mL/min Low - PINF [facility] Comment on above: Calculation based on the Chronic Kidney Disease Epidemiology Collaboration (CKD-EPI) equation refit without adjustment for race Glucose [Mass/Vol] 115 mg/dL High 74 - 100 mg/dL [facility] Interpretation and review of laboratory results Abnormal [facility] Potassium [Moles/Vol] 4.2 mmol/L 3.5 - 5.1 mmol/L [facility] Comment on above: Plasma potassium heidi ues may be up to 0.5 mmol/L lower than serum values. Sodium [Moles/Vol] 137 mmol/L 136 - 145 mmol/L [facility] Urea nitrogen [Mass/Vol] 33 mg/dL High 8 - 21 mg/dL [facility] HEPATIC FUNCTION PANELon Albumin [Mass/Vol] 3.1 g/dL Low 3.5-5.0 [facility] Comment on above: Performed By: #### L AB103, LAB15, LAB20, LAB99 ####Software Designer: LESLEE HERNANDEZ ([id number])[facility] [place] ([facility])[address] ALP [Catalytic activity/Vol] 229 U/L High 40-150 [facility] Comment on above: Performed By: #### L AB103, LAB15, LAB20, LAB99 ####Software Designer: LESLEE HERNANDEZ ([id number])[facility] [place] ([facility])[address] ALT [Catalytic activity/Vol] 109 U/L High <40 [facility] Comment on above: Performed By: #### L AB103, LAB15, LAB20, LAB99 ####Software Designer: LESLEE HERNANDEZ ([id number])[facility] [place] ([facility])[address] AST [Catalytic activity/Vol] 50 U/L High <34 [facility] Comment on above: Performed By: #### L AB103, LAB15, LAB20, LAB99 ####Software Designer: LESLEE HERNANDEZ ([id number])[facility] [place] ([facility])[address] Bilirubin [Mass/Vol] 1.3 mg/dL High <1.2 [facility] Comment on above: Performed By: #### L AB103, LAB15, LAB20, LAB99 ####Software Designer: LESLEE HERNANDEZ ([id number])[facility] [place] ([facility])[address] Bilirubin.indirect [Mass/Vol] 0.5 mg/dL High <0.5 [facility] Comment on above: Performed By: #### L AB103, LAB15, LAB20, LAB99 ####Software Designer: LESLEE HERNANDEZ ([id number])[facility] ([facility])[address] [place] [address] Protein [Mass/Vol] 6.4 g/dL Normal 6.4-8.3 [facility] Comment on above: Result Comment: Seru m protein values are higher than plasma values. Samples from recumbent persons are lower by up to 0.5 g/dL as compared to ambulatory persons. After 60 years values are lower by up to 0.2 g/dL. Performed By: #### L AB103, LAB15, LAB20, LAB99 ####Software Designer: LESLEE TURKTYRONE ([id number])[facility] ([facility])[address] [place] [address] Hepatic function 2000 panelo n 07-14-2024 Albumin [Mass/Vol] 3.1 g/dL Low 3.5 - 5.0 g/dL [facility] ALP [Catalytic activity/Vol] 229 U/L High 40 - 150 U/L [facility] ALT [Catalytic activity/Vol] 109 U/L High NINF - 40 U/L [facility] AST [Catalytic activity/Vol] 50 U/L High NINF - 34 U/L [facility] Bilirubin [Mass/Vol] 1.3 mg/dL High [facility] mg/dL [facility] Bilirubin.conjugated [Mass/Vol] 0.5 mg/dL High NINF - 0.5 mg/dL [facility] Interpretation and review of laboratory results Abnormal [facility] Protein [Mass/Vol] 6.4 g/dL 6.4 - 8.3 g/dL [facility] Comment on above: Serum protein values are higher than plasma values. Samples from recumbent persons are lower by up to 0.5 g/dL as compared to ambulatory persons. After 60 years values are lower by up to 0.2 g/dL. LIPASEon 07-14-2024 Lipase [Catalytic activity/Vol] 27 U/L Normal <55 [facility] Comment on above: Performed By: #### L AB103, LAB15, LAB20, LAB99 ####Software Designer: LESLEE HERNANDEZ ([id number])[facility] (SBAB)[address] Laboratory - Chemistry and C hemistry - challengeon 07-14-2024 Lipase [Catalytic activity/Vol] 27 U/L NINF - 55 U/L [facility] [employer] Magnesium [Mass/Vol] 2 mg/dL 1.6 - 2 .6 mg/dL [facility] [employer] Lipase [Catalytic activity/V ol]on 07-14-2024 Interpretation and review of laboratory results Normal [facility] [employer] MAGNESIUMon 07-14-2024 Magnesium [Mass/Vol] 2.0 mg/dL Normal 1.6-2.6 [facility] [employer] [facility] Comment on above: Result Comment: ALEJANDRO Aleman COMMENTS:Higher values can be expected in females during menses. Performed By: #### L AB103, LAB15, LAB20, LAB99 ####Software Designer: LESLEE HERNANDEZ ([id number])[facility] ([facility])[address] Magnesium [Mass/Vol]on 07-14 Interpretation and review of laboratory results Normal [facility] [employer] Higher values can be expected in females during menses. [employer] No Panel InformationOrdered By: Radha Parikh on 07-14-2024 P Cylinder 82 degrees shoutr Work Phone: DE Interval 83 ms shoutr Work Phone: QRS Cylinder -26 degrees shoutr Work Phone: QRSD Interval 93 ms [facility] Work Phone: QT Interval 342 ms shoutr Work Phone: QTC Interval 546 ms shoutr Work Phone: T Wave Cylinder 242 degrees shoutr Work Phone: shoutr Work Phone: No Panel Informationon 07-14 Radha Parikh MD - 07/14/2024 IMPRESSION: Atrial tachycardia Abnormal R-wave progression, late transition Probable LVH with secondary repol abnrm Prolonged QT interval Electronically Signed On 07-14-2024 09:33:32 EST by Radha Parikh [facility] [employer] [facility] Progress Noteon 07-14-2024 Progress Note Normal [facility] Vital signsOrdered By: Radha Parikh on 07-14-2024 Heart rate 153 /min bpm [facility] Work Phone: BASIC METABOLIC PANELon 06-30 Anion gap [Moles/Vol] 9 mmol/L Normal 3-13 [facility] Comment on above: Performed By: #### L AB103, LAB15, [id number] ####Software Designer: LESLEE HERNANDEZ ([id number])[facility] [place] ([facility])[address] Calcium [Mass/Vol] 8.1 mg/dL Low 8.4-10.2 [facility] Comment on above: Performed By: #### L AB103, LAB15, [id number] ####Software Designer: LESLEE HERNANDEZ ([id number])[facility] [place] ([facility])[address] Chloride [Moles/Vol] 105 mmol/L Normal 98-107 [facility] Comment on above: Performed By: #### L AB103, LAB15, [id number] ####Software Designer: LESLEE HERNANDEZ ([id number])[facility] [place] ([facility])[address] CO2 [Moles/Vol] 21 mmol/L Low 22-29 [facility] Comment on above: Performed By: #### L AB103, LAB15, [id number] ####Software Designer: LESLEE HERNANDEZ ([id number])[facility] [place] ([facility])[address] [place] [address] [place] Creatinine [Mass/Vol] 1.90 mg/dL High 0.72-1.25 [facility] Comment on above: Performed By: #### L AB103, LAB15, SMM798 ####Software Designer: LESLEE HERNANDEZ ([id number])[facility] ([facility])[address] GLOMERULAR FILTRATION RATE ML/MIN/1.73 SQ M.PREDICTED 43.5 mL/min/1.73m*2 Low >60.0 [facility] Comment on above: Result Comment: Calc ulation based on the Chronic Kidney Disease Epidemiology Collaboration (CKD-EPI) equation refit without adjustment for race Performed By: #### L AB103, LAB15, [id number] ####Software Designer: LESLEE HERNANDEZ ([id number])[facility] ([facility])[address] Glucose [Mass/Vol] 126 mg/dL High 74-100 [facility] Comment on above: Performed By: #### L AB103, LAB15, [id number] ####Software Designer: LESLEE HERNANDEZ ([id number])[facility] ([facility])[address] Potassium [Moles/Vol] 4.1 mmol/L Normal 3.5-5.1 [facility] Comment on above: Result Comment: [facility] potassium values may be up to 0.5 mmol/L lower than serum values. Performed By: #### L AB103, LAB15, [id number] ####Software Designer: LESLEE HERNANDEZ ([id number])[facility] ([facility])[address] Sodium [Moles/Vol] 135 mmol/L Low 136-145 [facility] Comment on above: Performed By: #### L AB103, LAB15, [id number] ####Software Designer: LESLEE HERNANDEZ ([id number])[facility] ([facility])[address] Urea nitrogen [Mass/Vol] 35 mg/dL High 8-21 [facility] Comment on above: Performed By: #### L AB103, LAB15, VVF062 ####Software Designer: LESLEE HERNANDEZ ([id number])[facility] ([facility])[address] Basic metabolic 1998 panelon 07-13-2024 Anion gap [Moles/Vol] 9 mmol/L 3 - 13 mmol/L [facility] Calcium [Mass/Vol] 8.1 mg/dL Low 8.4 - 10. 2 mg/dL [facility] Chloride [Moles/Vol] 105 mmol/L 98 - 10 7 mmol/L [facility] CO2 [Moles/Vol] 21 mmol/L Low 22 - 29 mmol/L [facility] Creatinine [Mass/Vol] 1.9 mg/dL High 0.72 - 1.25 mg/dL [facility] GFR/1.73 sq M.predicted (S/P/Bld) [Vol rate/Area] 43.5 mL/min Low - PINF [facility] Comment on above: Calculation based on the Chronic Kidney Disease Epidemiology Collaboration (CKD-EPI) equation refit without adjustment for race Glucose [Mass/Vol] 126 mg/dL High 74 - 100 mg/dL [facility] Interpretation and review of laboratory results Abnormal [facility] Potassium [Moles/Vol] 4.1 mmol/L 3.5 - 5.1 mmol/L [facility] Comment on above: Plasma potassium heidi ues may be up to 0.5 mmol/L lower than serum values. Sodium [Moles/Vol] 135 mmol/L Low 136 - 145 mmol/L [facility] Urea nitrogen [Mass/Vol] 35 mg/dL High 8 - 21 mg/dL [facility] CBC (HEMOGRAM)on 07-13-2024 Erythrocyte distribution width (RBC) [Ratio] 13.9 % Normal 11.5-15.0 [facility] Comment on above: Performed By: #### L AB294 ####Software Designer: LESLEE HERNANDEZ ([id number])[facility] ([facility])[address] [place] [address] Hematocrit (Bld) [Volume fraction] 39.7 % Low 40.0-52.0 [facility] Comment on above: Performed By: #### L AB294 ####Software Designer: LESLEE HERNANDEZ ([id number])[facility] ([facility])[address] Hemoglobin (Bld) [Mass/Vol] 12.9 g/dL Low 13.0-18.0 [facility] Comment on above: Performed By: #### L AB294 ####Software Designer: LESLEE HERNANDEZ ([id number])[facility] CENTERKeyon MCFADDENMarguerite (SBHLAB)[address] MCH (RBC) [Entitic mass] 33.2 pg Normal 26.0-34.0 [facility] Comment on above: Performed By: #### L AB294 ####Software Designer: LESLEE HERNANDEZ ([id number])[facility]ENTERKeyon [facility]OSPITALMarguerite (SB[facility]AB)[address] MCHC 32.5 % Normal 30.5-36.0 [facility] Comment on above: Performed By: #### L AB294 ####Software Designer: LESLEE HERNANDEZ ([id number])[facility]ENTER[facility] ([facility])[address] [place] [address] MCV (RBC) [Entitic vol] 102.3 fL High 77.0-99.0 [facility] Comment on above: Performed By: #### L AB294 ####Software Designer: LESLEE HERNANDEZ ([id number])[facility]ENTERKey[facility] ([facility])[address] Platelet mean volume (Bld) [Entitic vol] 9.9 fL Normal 9.0-12.7 [facility] Comment on above: Performed By: #### L AB294 ####Software Designer: LESLEE HERNANDEZ ([id number])[facility] CENTERKeyon [place] (SB[facility]AB)[address] Platelets (Bld) [#/Vol] 232 10*3/uL Normal 140-440 [facility] Comment on above: Performed By: #### L AB294 ####Software Designer: LESLEE HERNANDEZ ([id number])[facility] CENTERKyeon LINDMIMBRES MEMORIAL HOSPITALMarguerite (SBHLAB)[address] RBC (Bld) [#/Vol] 3.88 10*6/uL Low 4.40-5.90 [facility] Comment on above: Performed By: #### L AB294 ####Software Designer: LESLEE HERNANDEZ ([id number])[facility] ([facility])[address] WBC (Bld) [#/Vol] 6.6 10*3/uL Normal 3.6-10.7 [facility] Comment on above: Performed By: #### L AB294 ####Software Designer: LESLEE HERNANDEZ ([id number])[facility] ([facility])[address] CBC panel Auto (Bld)on 07-13 Erythrocyte distribution width (RBC) [Ratio] 13.9 % 11.5 - 15.0 % [facility] Hematocrit (Bld) [Volume fraction] 39.7 % Low 40.0 - 52.0 % [facility] Hemoglobin (Bld) [Mass/Vol] 12.9 g/dL Low 13.0 - 18.0 g/dL [facility] Interpretation and review of laboratory results Abnormal [facility] MCH (RBC) [Entitic mass] 33.2 pg 26.0 - 34.0 pg [facility] MCHC (RBC) [Mass/Vol] 32.5 % 30.5 - 36.0 % [facility] MCV (RBC) [Entitic vol] 102.3 fL High 77.0 - 99.0 fL [facility] Platelet mean volume (Bld) [Entitic vol] 9.9 fL 9.0 - 12.7 fL [facility] Platelets (Bld) [#/Vol] 232 10*3/uL 140 - 440 10*3/uL [facility] RBC (Bld) [#/Vol] 3.88 10*6/uL Low 4.40 - 5.9 0 10*6/uL [facility] WBC (Bld) [#/Vol] 6.6 10*3/uL 3.6 - 10.7 10*3/uL [facility] - Chemistry and C hemistry - challengeon 07-13-2024 Magnesium [Mass/Vol] 2 mg/dL 1.6 - 2 .6 mg/dL [facility] MAGNESIUMon 07-13-2024 Magnesium [Mass/Vol] 2.0 mg/dL Normal 1.6-2.6 [facility] Comment on above: Result Comment: ALEJANDRO Aleman COMMENTS:Higher values can be expected in females during menses. Performed By: #### L AB103, LAB15, [id number] ####Software Designer: LESLEE HERNANDEZ ([id number])[facility] ([facility])[address] Magnesium [Mass/Vol]on 07-13 Interpretation and review of laboratory results Normal [facility] Higher values can be expected in females during menses. [facility] NT PRO BNPon 07-13-2024 Natriuretic peptide B (Bld) [Mass/Vol] 55840 pg/mL High <125 [facility] Comment on above: Performed By: #### L AB103, LAB15, CRD334 ####Software Designer: LESLEE HERNANDEZ ([id number])[facility] ([facility])[address] Natriuretic peptide B [Mass/ Vol]on 07-13-2024 Interpretation and review of laboratory results Abnormal [facility] Natriuretic peptide B (Bld) [Mass/Vol] 03389 pg/mL High NINF - 125 pg/mL [facility] No Panel Informationon 07-13 [facility] Nursing Noteon 07-13-2024 Nursing Note 11 beat wide complex beats-denied symptoms to this RN. Dr Jeter spoke at length to pt re: health risks with refusing intervention. Normal [facility] Progress Noteon 07-13-2024 Progress Note He developed sinus tach on tele EKG obtained 5mg of lopressor ordered He then spontaneously went back to normal rhythm before being given. He did have fluttering in his chest, all symptoms now resolved EKG of sinus tach is in epic Normal [facility] Progress Note Normal [facility] Progress Note Normal [facility] Progress Note Nutrition rescreen completed. Chart reviewed. Patient to be monitored and followed by the diet licensed chemical spray technician. Normal [facility] 30on 07-12-2024 30 Normal [facility] APTTon 07-12-2024 aPTT Coag (Bld) [Time] 41.9 s High 20.0-30.5 [facility] Comment on above: Result Comment: ALEJANDRO Aleman COMMENTS:NOTE: The therapeutic time for Heparin anticoagulation, based on Xa activity inhibition, is an APTT of 46-80 seconds. Performed By: #### L AB325 ####Software Designer: LESLEE HERNANDEZ ([id number])[facility] CENTERKeyon [place] (SB[facility])[address] aPTT Coag (Bld) [Time] 59.4 s High 20.0-30.5 [facility] Comment on above: Result Comment: ALEJANDRO Aleman COMMENTS:NOTE: The therapeutic time for Heparin anticoagulation, based on Xa activity inhibition, is an APTT of 46-80 seconds. Performed By: #### L AB325 ####Software Designer: LESLEE HERNANDEZ ([id number])[facility] ([facility])[address] BASIC METABOLIC PANELon 01- Anion gap [Moles/Vol] 11 mmol/L Normal 3-13 [facility] Comment on above: Performed By: #### L AB15, [id number] ####Software Designer: LESLEE HERNANDEZ ([id number])[facility] ([facility])[address] Calcium [Mass/Vol] 8.7 mg/dL Normal 8.4-10.2 [facility] Comment on above: Performed By: #### L AB15, [id number] ####Software Designer: LESLEE HERNANDEZ ([id number])[facility] CENTERKeyon [place] (SBHLAB)[address] [place] [address] [place] Chloride [Moles/Vol] 108 mmol/L High 98-107 [facility] Comment on above: Performed By: #### L AB15, QHL235 ####Software Designer: LESLEE HERNANDEZ ([id number])[facility] [place] ([facility])[address] [place] [address] [place] CO2 [Moles/Vol] 22 mmol/L Normal 22-29 [facility] Comment on above: Performed By: #### L AB15, MLT120 ####Software Designer: LESLEE HERNANDEZ ([id number])[facility]ENTERKey[facility] [place] ([facility])[address] Creatinine [Mass/Vol] 1.90 mg/dL High 0.72-1.25 [facility] Comment on above: Performed By: #### L AB15, [id number] ####Software Designer: LESLEE HERNANDEZ ([id number])[facility] CENTERKeyon [facility]BMIMBR[facility]OSPITALN (SB[facility]AB)[address] [place] [address] [place] GLOMERULAR FILTRATION RATE ML/MIN/1.73 SQ M.PREDICTED 43.5 mL/min/1.73m*2 Low >60.0 [facility] Comment on above: Result Comment: Calc ulation based on the Chronic Kidney Disease Epidemiology Collaboration (CKD-EPI) equation refit without adjustment for race Performed By: #### L AB15, [id number] ####Software Designer: LESLEE HERNANDEZ ([id number])[facility]ENTERKeyon [facility]BMIMBR[facility]OSPITALN ([facility])[address] Glucose [Mass/Vol] 124 mg/dL High 74-100 [facility] Comment on above: Performed By: #### L AB15, [id number] ####Software Designer: LESLEE HERNANDEZ ([id number])[facility] (SB[facility]AB)[address] [place] [address] [place] Potassium [Moles/Vol] 4.5 mmol/L Normal 3.5-5.1 [facility] Comment on above: Result Comment: [facility] potassium values may be up to 0.5 mmol/L lower than serum values. Performed By: #### L AB15, [id number] ####Software Designer: LESLEE HERNANDEZ ([id number])[facility] (SBHLAB)[address] [place] [address] [place] Sodium [Moles/Vol] 141 mmol/L Normal 136-145 [facility] Comment on above: Performed By: #### L AB15, [id number] ####Software Designer: LESLEE HERNANDEZ ([id number])[facility] (SB[facility])[address] Urea nitrogen [Mass/Vol] 31 mg/dL High 8-21 [facility] Comment on above: Performed By: #### L AB15, [id number] ####Software Designer: LESLEE HERNANDEZ ([id number])[facility] (SBHLAB)[address] Basic metabolic 1998 panelon 07-12-2024 Anion gap [Moles/Vol] 11 mmol/L 3 - 13 mmol/L [facility] Calcium [Mass/Vol] 8.7 mg/dL 8.4 - 10. 2 mg/dL [facility] Chloride [Moles/Vol] 108 mmol/L High 98 - 10 7 mmol/L [facility] CO2 [Moles/Vol] 22 mmol/L 22 - 29 mmol/L [facility] Creatinine [Mass/Vol] 1.9 mg/dL High 0.72 - 1.25 mg/dL [facility] GFR/1.73 sq M.predicted (S/P/Bld) [Vol rate/Area] 43.5 mL/min Low - PINF [facility] Comment on above: Calculation based on the Chronic Kidney Disease Epidemiology Collaboration (CKD-EPI) equation refit without adjustment for race Glucose [Mass/Vol] 124 mg/dL High 74 - 100 mg/dL [facility] Interpretation and review of laboratory results Abnormal [facility] Potassium [Moles/Vol] 4.5 mmol/L 3.5 - 5.1 mmol/L [facility] Comment on above: Plasma potassium heidi ues may be up to 0.5 mmol/L lower than serum values. Sodium [Moles/Vol] 141 mmol/L 136 - 145 mmol/L [facility] Urea nitrogen [Mass/Vol] 31 mg/dL High 8 - 21 mg/dL [facility] CBC W Auto Differential pane l (Bld)Ordered By: Roberto Puckett on 07-12-2024 Basophils (Bld) [#/Vol] 0 10*3/uL 0.0 - 0.2 10*3/uL [facility] Basophils/100 WBC (Bld) 0.5 % 0.0 - 2.0 % [facility] Eosinophils (Bld) [#/Vol] 0 10*3/uL 0.0 - 0.5 10*3/uL [facility] Eosinophils/100 WBC (Bld) 0.4 % 0.0 - 6.0 % [facility] Erythrocyte distribution width (RBC) [Ratio] 14.3 % 11.5 - 15.0 % [facility] Hematocrit (Bld) [Volume fraction] 45.6 % 40.0 - 52.0 % [facility] Hemoglobin (Bld) [Mass/Vol] 14.4 g/dL 13.0 - 18.0 g/dL [facility] Immature granulocytes (Bld) [#/Vol] 0 10*3/uL NINF - 0.1 10*3/uL [facility] Immature granulocytes/100 WBC (Bld) 0.1 % 0.0 - 2.0 % [facility] Interpretation and review of laboratory results Abnormal [facility] Lymphocytes (Bld) [#/Vol] 2.7 10*3/uL 1.0 - 4.3 10*3/uL [facility] Lymphocytes/100 WBC (Bld) 32.6 % 15.0 - 45.0 % [facility] MCH (RBC) [Entitic mass] 33.2 pg 26.0 - 34.0 pg [facility] MCHC (RBC) [Mass/Vol] 31.6 % 30.5 - 36.0 % [facility] MCV (RBC) [Entitic vol] 105.1 fL High 77.0 - 99.0 fL [facility] Monocytes (Bld) [#/Vol] 0.6 10*3/uL 0.0 - 0.9 10*3/uL [facility] Monocytes/100 WBC (Bld) 7.7 % 5.0 - 13.0 % [facility] Neutrophils (Bld) [#/Vol] 4.8 10*3/uL 1.8 - 7.5 10*3/uL [facility] Neutrophils/100 WBC (Bld) 58.7 % 38.0 - 82.0 % [facility] Nucleated RBC/100 WBC (Bld) [Ratio] 0 % [facility] Platelet mean volume (Bld) [Entitic vol] 9.8 fL 9.0 - 12.7 fL [facility] Platelets (Bld) [#/Vol] 246 10*3/uL 140 - 440 10*3/uL [facility] RBC (Bld) [#/Vol] 4.34 10*6/uL Low 4.40 - 5.9 0 10*6/uL [facility] WBC (Bld) [#/Vol] 8.2 10*3/uL 3.6 - 10.7 10*3/uL [facility] CBC WITH AUTO DIFFERENTIALon 07-12-2024 Basophils (Bld) [#/Vol] 0.0 10*3/uL Normal 0.0-0.2 [facility] Comment on above: Performed By: #### L [id number] ####Software Designer: LESLEE HERNANDEZ ([id number])[facility] ([facility] [place] [address] Basophils/100 WBC (Bld) 0.5 % Normal 0.0-2.0 [facility] Comment on above: Performed By: #### L [id number] ####Software Designer: LESLEE HERNANDEZ ([id number])[facility] ([facility])[address] Eosinophils (Bld) [#/Vol] 0.0 10*3/uL Normal 0.0-0.5 [facility] Comment on above: Performed By: #### L [id number] ####Software Designer: LESLEE HERNANDEZ ([id number])[facility] (SB[facility])[address] [place] [address] Eosinophils/100 WBC (Bld) 0.4 % Normal 0.0-6.0 [facility] Comment on above: Performed By: #### L [id number] ####Software Designer: LESLEE HERNANDEZ ([id number])[facility] ([facility])[address] Erythrocyte distribution width (RBC) [Ratio] 14.3 % Normal 11.5-15.0 [facility] Comment on above: Performed By: #### L [id number] ####Software Designer: LESLEE HERNANDEZ ([id number])[facility] ([facility])[address] Hematocrit (Bld) [Volume fraction] 45.6 % Normal 40.0-52.0 [facility] Comment on above: Performed By: #### L [id number] ####Software Designer: LESLEE TURKTYRONE ([id number])[facility] ([facility])[address] Hemoglobin (Bld) [Mass/Vol] 14.4 g/dL Normal 13.0-18.0 [facility] Comment on above: Performed By: #### L [id number] ####Software Designer: LESLEE HERNANDEZ ([id number])[facility] ([facility] [place] [address] IMMATURE GRANS % 0.1 % Normal 0.0-2.0 [facility] Comment on above: Performed By: #### L [id number] ####Software Designer: LESLEE HERNANDEZ ([id number])[facility] ([facility])[address] IMMATURE GRANS ABSOLUTE 0.0 10*3/uL Normal <0.1 [facility] Comment on above: Performed By: #### L [id number] ####Software Designer: LESLEE HERNANDEZ ([id number])[facility] ([facility])[address] [place] [address] Lymphocytes (Bld) [#/Vol] 2.7 10*3/uL Normal 1.0-4.3 [facility] Comment on above: Performed By: #### L [id number] ####Software Designer: LESLEE HERNANDEZ ([id number])[facility] ([facility])[address] [place] [address] [place] Lymphocytes/100 WBC (Bld) 32.6 % Normal 15.0-45.0 [facility] Comment on above: Performed By: #### L [id number] ####Software Designer: LESLEE HERNANDEZ ([id number])[facility] (SBHLAB)[address] MCH (RBC) [Entitic mass] 33.2 pg Normal 26.0-34.0 [facility] Comment on above: Performed By: #### L [id number] ####Software Designer: LESLEE TURKTYRONE ([id number])[facility] (SBHLAB)[address] MCHC 31.6 % Normal 30.5-36.0 [facility] Comment on above: Performed By: #### L [id number] ####Software Designer: LESLEE HERNANDEZ ([id number])[facility] [place] (SBHLAB)[address] MCV (RBC) [Entitic vol] 105.1 fL High 77.0-99.0 [facility] Comment on above: Performed By: #### L [id number] ####Software Designer: LESLEE HERNANDEZ ([id number])[facility] [place] (SBHLAB)[address] Monocytes (Bld) [#/Vol] 0.6 10*3/uL Normal 0.0-0.9 [facility] Comment on above: Performed By: #### L [id number] ####Software Designer: LESLEE HERNANDEZ ([id number])[facility] [place] (SBHLAB)[address] Monocytes/100 WBC (Bld) 7.7 % Normal 5.0-13.0 [facility] Comment on above: Performed By: #### L [id number] ####Software Designer: LESLEE HERNANDEZ ([id number])[facility] [place] (SBHLAB)[address] NEUTROPHILS ABSOLUTE 4.8 10*3/uL Normal 1.8-7.5 [facility] Comment on above: Performed By: #### L [id number] ####Software Designer: LESLEE HERNANDEZ ([id number])[facility] [place] (SBHLAB)[address] Neutrophils/100 WBC (Bld) 58.7 % Normal 38.0-82.0 [facility] Comment on above: Performed By: #### L [id number] ####Software Designer: LESLEE HERNANDEZ ([id number])[facility] (SBHLAB)[address] NRBC 0.0 /100 WBCs Normal 0.0-2.0 [facility] Comment on above: Performed By: #### L [id number] ####Software Designer: LESLEE HERNANDEZ ([id number])[facility] [place] (SBHLAB)[address] Platelet mean volume (Bld) [Entitic vol] 9.8 fL Normal 9.0-12.7 [facility] Comment on above: Performed By: #### L [id number] ####Software Designer: LESLEE HERNANDEZ ([id number])[facility] [place] (SBHLAB)[address] Platelets (Bld) [#/Vol] 246 10*3/uL Normal 140-440 [facility] Comment on above: Performed By: #### L [id number] ####Software Designer: LESLEE HERNANDEZ ([id number])[facility] [place] (SBHLAB)[address] RBC (Bld) [#/Vol] 4.34 10*6/uL Low 4.40-5.90 [facility] Comment on above: Performed By: #### L [id number] ####Software Designer: LESLEE HERNANDEZ ([id number])[facility] [place] (SBHLAB)[address] [place] [address] [place] WBC (Bld) [#/Vol] 8.2 10*3/uL Normal 3.6-10.7 [facility] Comment on above: Performed By: #### L [id number] ####Software Designer: LESLEE HERNANDEZ ([id number])[facility] [place] (SBHLAB)[address] COMPREHENSIVE METABOLIC PANE Ming 07-12-2024 Albumin [Mass/Vol] 3.0 g/dL Low 3.5-5.0 [facility] Comment on above: Performed By: #### L [id number], [id number], LAB17 ####Software Designer: LESLEE HERNANDEZ ([id number])[facility] [place] (SBHLAB)[address] ALP [Catalytic activity/Vol] 181 U/L High 40-150 [facility] Comment on above: Performed By: #### L [id number], [id number], LAB17 ####Software Designer: LESLEE HERNANDEZ ([id number])[facility] [place] (SBHLAB)[address] ALT [Catalytic activity/Vol] 127 U/L High <40 [facility] Comment on above: Performed By: #### L [id number], [id number], LAB17 ####Software Designer: LESLEE HERNANDEZ ([id number])[facility] [place] (SBHLAB)[address] Anion gap [Moles/Vol] 12 mmol/L Normal 3-13 [facility] Comment on above: Performed By: #### L AB103, [id number], LAB17 ####Software Designer: LESLEE HERNANDEZ ([id number])[facility] [place] (SB[facility]AB)[address] AST [Catalytic activity/Vol] 63 U/L High <34 [facility] Comment on above: Performed By: #### L AB103, [id number], LAB17 ####Software Designer: LESLEE HERNANDEZ ([id number])[facility] [place] (SBHLAB)[address] Bilirubin [Mass/Vol] 2.0 mg/dL High <1.2 [facility] Comment on above: Performed By: #### L AB103, [id number], LAB17 ####Software Designer: LESLEE HERNANDEZ ([id number])[facility] [place] (SBHLAB)[address] [place] [address] [place] Calcium [Mass/Vol] 8.6 mg/dL Normal 8.4-10.2 [facility] Comment on above: Performed By: #### L AB103, [id number], LAB17 ####Software Designer: LESLEE HERNANDEZ ([id number])[facility] [place] (SBHLAB)[address] Chloride [Moles/Vol] 107 mmol/L Normal 98-107 [facility] Comment on above: Performed By: #### L AB103, [id number], LAB17 ####Software Designer: LESLEE HERNANDEZ ([id number])[facility] [place] (SB[facility]AB)[address] CO2 [Moles/Vol] 20 mmol/L Low 22-29 [facility] Comment on above: Performed By: #### L AB103, [id number], LAB17 ####Software Designer: LESLEE HERNANDEZ ([id number])[facility]ENTER[facility]on [place] (SBHLAB)[address] Creatinine [Mass/Vol] 1.79 mg/dL High 0.72-1.25 [facility] Comment on above: Performed By: #### L AB103, [id number], LAB17 ####Software Designer: LESLEE HERNANDEZ ([id number])[facility]ENTER[facility]on [place] (SBHLAB)[address] [place] [address] [place] GLOMERULAR FILTRATION RATE ML/MIN/1.73 SQ M.PREDICTED 46.7 mL/min/1.73m*2 Low >60.0 [facility] Comment on above: Result Comment: Calc ulation based on the Chronic Kidney Disease Epidemiology Collaboration (CKD-EPI) equation refit without adjustment for race Performed By: #### L AB103, [id number], LAB17 ####Software Designer: LESLEE HERNANDEZ ([id number])[facility] [place] (SBHLAB)[address] [place] [address] [place] Glucose [Mass/Vol] 104 mg/dL High 74-100 [facility] Comment on above: Performed By: #### L AB103, [id number], LAB17 ####Software Designer: LESLEE HERNANDEZ ([id number])[facility] ([facility])[address] Potassium [Moles/Vol] 4.5 mmol/L Normal 3.5-5.1 [facility] Comment on above: Result Comment: [facility] potassium values may be up to 0.5 mmol/L lower than serum values. Performed By: #### L AB103, [id number], LAB17 ####Software Designer: LESLEE HERNANDEZ ([id number])[facility] ([facility])[address] Protein [Mass/Vol] 6.0 g/dL Low 6.4-8.3 [facility] Comment on above: Performed By: #### L AB103, [id number], LAB17 ####Software Designer: LESLEE HERNANDEZ ([id number])[facility] ([facility])[address] Sodium [Moles/Vol] 139 mmol/L Normal 136-145 [facility] Comment on above: Performed By: #### L AB103, [id number], LAB17 ####Software Designer: LESLEE HERNANDEZ ([id number])[facility] (SBHLAB)[address] Urea nitrogen [Mass/Vol] 31 mg/dL High 8-21 [facility] Comment on above: Performed By: #### L AB103, [id number], LAB17 ####Software Designer: LESLEE HERNANDEZ ([id number])[facility] ([facility])[address] Comprehensive metabolic 1998 panelon 07-12-2024 Albumin [Mass/Vol] 3 g/dL Low 3.5 - 5.0 g/dL [facility] ALP [Catalytic activity/Vol] 181 U/L High 40 - 150 U/L [facility] ALT [Catalytic activity/Vol] 127 U/L High NINF - 40 U/L [facility] Anion gap [Moles/Vol] 12 mmol/L 3 - 13 mmol/L [facility] AST [Catalytic activity/Vol] 63 U/L High NINF - 34 U/L [facility] Bilirubin [Mass/Vol] 2 mg/dL High NINF - 1.2 mg/dL [facility] Calcium [Mass/Vol] 8.6 mg/dL 8.4 - 10. 2 mg/dL [facility] Chloride [Moles/Vol] 107 mmol/L 98 - 10 7 mmol/L [facility] CO2 [Moles/Vol] 20 mmol/L Low 22 - 29 mmol/L [facility] Creatinine [Mass/Vol] 1.79 mg/dL High 0.72 - 1.25 mg/dL [facility] GFR/1.73 sq M.predicted (S/P/Bld) [Vol rate/Area] 46.7 mL/min Low - PINF [facility] Comment on above: Calculation based on the Chronic Kidney Disease Epidemiology Collaboration (CKD-EPI) equation refit without adjustment for race Glucose [Mass/Vol] 104 mg/dL High 74 - 100 mg/dL [facility] Interpretation and review of laboratory results Abnormal [facility] Potassium [Moles/Vol] 4.5 mmol/L 3.5 - 5.1 mmol/L [facility] Comment on above: Plasma potassium heidi ues may be up to 0.5 mmol/L lower than serum values. Protein [Mass/Vol] 6 g/dL Low 6.4 - 8.3 g/dL [facility] Sodium [Moles/Vol] 139 mmol/L 136 - 145 mmol/L [facility] Urea nitrogen [Mass/Vol] 31 mg/dL High 8 - 21 mg/dL [facility] Consulton 07-12-2024 Consult Normal [facility] ECG 12-LEADon 07-12-2024 ECG 12-LEAD IMPRESSION: Sinus tachycardia Left ventricular hypertrophy Nonspecific T abnormalities, lateral leads Borderline prolonged QT interval Compared to ECG 07/11/24 at 1831 No significant change Electronically Signed On 07-12-2024 06:02:51 EST by Chas Haddad Normal [facility] ECG 12-LEAD IMPRESSION: Sinus tachycardia LVH with secondary repolarization abnormality Borderline prolonged QT interval Compared to ECG 07/03/24 No significant change Electronically Signed On 07-12-2024 06:02:00 EST by Chas Haddad Normal [facility] ED Nursing Noteon 07-12-2024 ED Nursing Note APTT drawn by venipuncture, previous specimen also drawn by venipuncture Normal [facility] HIGH SENSITIVITY TROPONIN, S ERIAL, THIRD TESTon 07-12-2024 TROPONIN HS DELTA, SECOND TO THIRD -3 ng/L Normal <=2 [facility] Comment on above: Result Comment: A tr oponin delta greater than or equal to 15 ng/L is suggestive of acute cardiac injury. Values less than 15, see clinical guidance for ED and Inpatient algorithms. Performed By: #### L [id number], [id number] ####Software Designer: LESLEE HERNANDEZ ([id number])[facility] ([facility])[address] [place] [address] TROPONIN HS, SERIAL REFLEX, TEST THREE 218 ng/L Critically high <=35 [facility] Comment on above: Performed By: #### L [id number], [id number] ####Software Designer: LESLEE HERNANDEZ ([id number])[facility] ([facility])[address] [place] [address] Laboratory - Chemistry and C hemistry - challengeon 07-12-2024 Magnesium [Mass/Vol] 2.1 mg/dL 1.6 - 2 .6 mg/dL [facility] Magnesium [Mass/Vol] 2.2 mg/dL 1.6 - 2 .6 mg/dL [facility] TSH Qn 0.68 m[IU]/L [facility] MAGNESIUMon 07-12-2024 Magnesium [Mass/Vol] 2.1 mg/dL Normal 1.6-2.6 [facility] Comment on above: Result Comment: ALEJANDRO Aleman COMMENTS:Higher values can be expected in females during menses. Performed By: #### L AB103, [id number], LAB17 ####Software Designer: LESLEE HERNANDEZ ([id number])[facility] ([facility])[address] [place] [address] Magnesium [Mass/Vol] 2.2 mg/dL Normal 1.6-2.6 [facility] Comment on above: Result Comment: ALEJANDRO R COMMENTS:Higher values can be expected in females during menses. Performed By: #### L AB15, [id number] ####Software Designer: LESLEE HERNANDEZ ([id number])[facility] ([facility])[address] [place] [address] Magnesium [Mass/Vol]on 07-12 Interpretation and review of laboratory results Normal [facility] Higher values can be expected in females during menses. [facility] Interpretation and review of laboratory results Normal [facility] Higher values can be expected in females during menses. [facility] NT PRO BNPon 07-12-2024 Natriuretic peptide B (Bld) [Mass/Vol] 22360 pg/mL High <125 [facility] [employer] [facility] Comment on above: Performed By: #### L AB103, [id number], LAB17 ####Software Designer: LESLEE HERNANDEZ ([id number])[facility] ([facility])[address] [place] [address] Natriuretic peptide B [Mass/ Vol]on 07-12-2024 Interpretation and review of laboratory results Abnormal [facility] Natriuretic peptide B (Bld) [Mass/Vol] 98431 pg/mL High NINF - 125 pg/mL [facility] No Panel Informationon 07-12 [facility] P Cylinder 58 degrees [facility] Health DE Interval 142 ms [facility] QRS Cylinder -16 degrees [facility] QRSD Interval [facility]val 364 ms [facility] QTC Interval 488 ms [facility] T Wave Cylinder 103 degrees [facility] Sinus tachycardia Left ventricular hypertrophy Nonspecific T abnormalities, lateral leads Borderline prolonged QT interval Compared to ECG 07/11/24 at 1831 No significant change Electronically Signed On 07-12-2024 06:02:51 EST by Chas Kaufman D O - 07/12/2024 IMPRESSION: Sinus tachycardia Left ventricular hypertrophy Nonspecific T abnormalities, lateral leads Borderline prolonged QT interval Compared to ECG 07/11/24 at 1831 No significant change Electronically Signed On 07-12-2024 06:02:51 EST by Chas Hdadad [facility] Sinus tachycardia LVH with secondary repolarization abnormality Borderline prolonged QT interval Compared to ECG 07/03/24 No significant change Electronically Signed On 07-12-2024 06:02:00 EST by Chas Haddad CV Chas Arellano D O - 07/12/2024 IMPRESSION: Sinus tachycardia LVH with secondary repolarization abnormality Borderline prolonged QT interval Compared to ECG 07/03/24 No significant change Electronically Signed On 07-12-2024 06:02:00 EST by Chas Haddad [facility] [employer] Interpretation and review of laboratory results [facility]normal [facility] Troponin HS Delta, Second to Third -3 ng/L NINF - 2 ng/L [facility] Comment on above: A troponin delta gre ater than or equal to 15 ng/L is suggestive of acute cardiac injury. Values less than 15, see clinical guidance for ED and Inpatient algorithms. Troponin HS, Serial Third 218 ng/L Critically high NINF - 35 ng/L [facility] [employer] No Panel InformationOrdered By: Chas Haddad on 07-12-2024 P Cylinder 52 degrees [employer] Work Phone: DE Interval 147 ms [employer] Phone: QRS Cylinder -30 degrees [employer] Phone: QRSD Interval 93 ms [employer] Work Phone: QT Interval 355 ms [employer] Work Phone: QTC Interval 480 ms [employer] Phone: T Wave Cylinder 127 degrees [employer] Phone: [employer] Work Phone: Nursing Noteon 07-12-2024 Nursing Note Patient does not wan t to take his sodium bicarb until 2pm. Normal Load [employer] [facility] Progress Noteon 07-12-2024 Progress Note Normal [employer] [facility] THYROID STIMULATING HORMONEo n 07-12-2024 THYROID STIMULATING HORMONE 0.68 uIU/mL Normal 0.35-4.94 [facility] [employer] [facility] Comment on above: Performed By: #### L [id number], [id number] ####Software Designer: LESLEE HERNANDEZ ([id number])[facility] (SBHLAB)[address] TSH Qnon 07-12-2024 Interpretation and review of laboratory results Normal [facility] Vital signson 07-12-2024 Heart rate 108 /min bpm [facility] Vital signsOrdered By: Clementina Haddad on 07-12-2024 Heart rate 110 /min bpm [facility] Work Phone: aPTT Coag (Bld) [Time]on aPTT Coag (PPP) [Time] 41.9 s High 20.0 - 30.5 s [facility] Interpretation and review of laboratory results Abnormal [facility] NOTE: The therapeuti c time for Heparin anticoagulation, based on Xa activity inhibition, is an APTT of 46-80 seconds. [facility] aPTT Coag (PPP) [Time] 59.4 s High 20.0 - 30.5 s [facility] Interpretation and review of laboratory results Abnormal [facility] NOTE: The therapeuti c time for Heparin anticoagulation, based on Xa activity inhibition, is an APTT of 46-80 seconds. [facility] APTTon 07-11-2024 aPTT Coag (Bld) [Time] 24.2 s Normal 20.0-30.5 [facility] Comment on above: Result Comment: ALEJANDRO Aleman COMMENTS:NOTE: The therapeutic time for Heparin anticoagulation, based on Xa activity inhibition, is an APTT of 46-80 seconds. Performed By: #### L [id number] ####Software Designer: LESLEE HERNANDEZ ([id number])[facility] CENTERKeyon MCFADDENMarguerite (SBHLAB)[address] BASIC METABOLIC PANELon 06-30 Anion gap [Moles/Vol] 15 mmol/L High -13 [facility] Comment on above: Performed By: #### L AB106, LAB15, [id number], LAB20 ####Software Designer: LESLEE HERNANDEZ ([id number])[facility] CENTERKeyon [place] (SBHLAB)[address] Calcium [Mass/Vol] 8.8 mg/dL Normal 8.4-10.2 [facility] Comment on above: Performed By: #### L AB106, LAB15, [id number], LAB20 ####Software Designer: LESLEE HERNANDEZ ([id number])[facility] (SBHLAB)[address] Chloride [Moles/Vol] 106 mmol/L Normal 98-107 [facility] Comment on above: Performed By: #### L AB106, LAB15, [id number], LAB20 ####Software Designer: LESLEE HERNANDEZ ([id number])[facility] (SBHLAB)[address] CO2 [Moles/Vol] 20 mmol/L Low 22-29 [facility] Comment on above: Performed By: #### L AB106, LAB15, [id number], LAB20 ####Software Designer: LESLEE HERNANDEZ ([id number])[facility] (SBHLAB)[address] Creatinine [Mass/Vol] 1.70 mg/dL High 0.72-1.25 [facility] Comment on above: Performed By: #### L AB106, LAB15, [id number], LAB20 ####Software Designer: LESLEE HERNANDEZ ([id number])[facility] ([facility])[address] [place] [address] [place] GLOMERULAR FILTRATION RATE ML/MIN/1.73 SQ M.PREDICTED 49.7 mL/min/1.73m*2 Low >60.0 [facility] Comment on above: Result Comment: Calc ulation based on the Chronic Kidney Disease Epidemiology Collaboration (CKD-EPI) equation refit without adjustment for race Performed By: #### L AB106, LAB15, [id number], LAB20 ####Software Designer: LESLEE HERNANDEZ ([id number])[facility] (SBHLAB)[address] Glucose [Mass/Vol] 97 mg/dL Normal 74-100 [facility] Comment on above: Performed By: #### L AB106, LAB15, [id number], LAB20 ####Software Designer: LESLEE HERNANDEZ ([id number])[facility] (SBHLAB)[address] Potassium [Moles/Vol] 4.6 mmol/L Normal 3.5-5.1 [facility] Comment on above: Result Comment: [facility] potassium values may be up to 0.5 mmol/L lower than serum values. Performed By: #### L AB106, LAB15, [id number], LAB20 ####Software Designer: LESLEE HERNANDEZ ([id number])[facility] (SBHLAB)[address] Sodium [Moles/Vol] 141 mmol/L Normal 136-145 [facility] Comment on above: Performed By: #### L AB106, LAB15, [id number], LAB20 ####Software Designer: LESLEE HERNANDEZ ([id number])[facility] (SBHLAB)[address] Urea nitrogen [Mass/Vol] 30 mg/dL High 8-21 [facility] Comment on above: Performed By: #### L AB106, LAB15, [id number], LAB20 ####Software Designer: LESLEE HERNANDEZ ([id number])[facility] (SBHLAB)[address] Basic metabolic 1998 panelon 07-11-2024 Anion gap [Moles/Vol] 15 mmol/L High 3 - 13 mmol/L [facility] Calcium [Mass/Vol] 8.8 mg/dL 8.4 - 10. 2 mg/dL [facility] Chloride [Moles/Vol] 106 mmol/L 98 - 10 7 mmol/L [facility] CO2 [Moles/Vol] 20 mmol/L Low 22 - 29 mmol/L [facility] Creatinine [Mass/Vol] 1.7 mg/dL High 0.72 - 1.25 mg/dL [facility] GFR/1.73 sq M.predicted (S/P/Bld) [Vol rate/Area] 49.7 mL/min Low - PINF [facility] [employer] Comment on above: Calculation based on the Chronic Kidney Disease Epidemiology Collaboration (CKD-EPI) equation refit without adjustment for race Glucose [Mass/Vol] 97 mg/dL 74 - 100 mg/dL [facility] [employer] Potassium [Moles/Vol] 4.6 mmol/L 3.5 - 5.1 mmol/L [facility] [employer] Comment on above: Plasma potassium heidi ues may be up to 0.5 mmol/L lower than serum values. Sodium [Moles/Vol] 141 mmol/L 136 - 145 mmol/L [facility] [employer] Urea nitrogen [Mass/Vol] 30 mg/dL High 8 - 21 mg/dL [facility] [employer] CBC W Auto Differential pane l (Bld)on 07-11-2024 Basophils (Bld) [#/Vol] 0 10*3/uL 0.0 - 0.2 10*3/uL [facility] [employer] Basophils/100 WBC (Bld) 0.4 % 0.0 - 2.0 % [facility] [employer] Eosinophils (Bld) [#/Vol] 0 10*3/uL 0.0 - 0.5 10*3/uL [facility] [employer] Eosinophils/100 WBC (Bld) 0.2 % 0.0 - 6.0 % [facility] Erythrocyte distribution width (RBC) [Ratio] 14 % 11.5 - 15.0 % [facility] Hematocrit (Bld) [Volume fraction] 48.4 % 40.0 - 52.0 % [facility] Hemoglobin (Bld) [Mass/Vol] 15.5 g/dL 13.0 - 18.0 g/dL [facility] [employer] Immature granulocytes (Bld) [#/Vol] 0 10*3/uL NINF - 0.1 10*3/uL [facility] [employer] Immature granulocytes/100 WBC (Bld) 0.2 % 0.0 - 2.0 % [facility] Interpretation and review of laboratory results Abnormal [facility] [employer] Lymphocytes (Bld) [#/Vol] 2.4 10*3/uL 1.0 - 4.3 10*3/uL [facility] [employer] Lymphocytes/100 WBC (Bld) 28.9 % 15.0 - 45.0 % [facility] MCH (RBC) [Entitic mass] 32.9 pg 26.0 - 34.0 pg [facility] [employer] MCHC (RBC) [Mass/Vol] 32 % 30.5 - 36.0 % [facility] MCV (RBC) [Entitic vol] 102.8 fL High 77.0 - 99.0 fL [facility] Monocytes (Bld) [#/Vol] 0.6 10*3/uL 0.0 - 0.9 10*3/uL [facility] Monocytes/100 WBC (Bld) 6.5 % 5.0 - 13.0 % [facility] Neutrophils (Bld) [#/Vol] 5.4 10*3/uL 1.8 - 7.5 10*3/uL [facility] Neutrophils/100 WBC (Bld) 63.8 % 38.0 - 82.0 % [facility] Nucleated RBC/100 WBC (Bld) [Ratio] 0 % [facility] Platelet mean volume (Bld) [Entitic vol] 9.8 fL 9.0 - 12.7 fL [facility] Platelets (Bld) [#/Vol] 270 10*3/uL 140 - 440 10*3/uL [facility] RBC (Bld) [#/Vol] 4.71 10*6/uL 4.40 - 5.9 0 10*6/uL [facility] WBC (Bld) [#/Vol] 8.4 10*3/uL 3.6 - 10.7 10*3/uL [facility] CBC WITH AUTO DIFFERENTIALon 07-11-2024 Basophils (Bld) [#/Vol] 0.0 10*3/uL Normal 0.0-0.2 [facility] Comment on above: Performed By: #### L [id number] ####Software Designer: LESLEE HERNANDEZ ([id number])[facility] ([facility])[address] [place] [address] Basophils/100 WBC (Bld) 0.4 % Normal 0.0-2.0 [facility] Comment on above: Performed By: #### L [id number] ####Software Designer: LESLEE HERNANDEZ ([id number])[facility] ([facility])[address] Eosinophils (Bld) [#/Vol] 0.0 10*3/uL Normal 0.0-0.5 [facility] Comment on above: Performed By: #### L [id number] ####Software Designer: LESLEE HERNANDEZ ([id number])[facility] ([facility])[address] [place] [address] Eosinophils/100 WBC (Bld) 0.2 % Normal 0.0-6.0 [facility] Comment on above: Performed By: #### L [id number] ####Software Designer: LESLEE HERNANDEZ ([id number])[facility] ([facility])[address] [place] [address] Erythrocyte distribution width (RBC) [Ratio] 14.0 % Normal 11.5-15.0 [facility] Comment on above: Performed By: #### L [id number] ####Software Designer: LESLEE HERNANDEZ ([id number])[facility] ([facility])[address] [place] [address] Hematocrit (Bld) [Volume fraction] 48.4 % Normal 40.0-52.0 [facility] Comment on above: Performed By: #### L [id number] ####Software Designer: LESLEE HERNANDEZ ([id number])[facility] ([facility])[address] [place] [address] Hemoglobin (Bld) [Mass/Vol] 15.5 g/dL Normal 13.0-18.0 [facility] Comment on above: Performed By: #### L [id number] ####Software Designer: LESLEE HERNANDEZ ([id number])[facility] ([facility])[address] [place] [address] IMMATURE GRANS % 0.2 % Normal 0.0-2.0 [facility] Comment on above: Performed By: #### L [id number] ####Software Designer: LESLEE HERNANDEZ ([id number])[facility] ([facility])[address] [place] [address] IMMATURE GRANS ABSOLUTE 0.0 10*3/uL Normal <0.1 [facility] Comment on above: Performed By: #### L [id number] ####Software Designer: LESLEE MCNEILLNinoskaTYRONE ([id number])[facility]ENTERKeyon [place]INDALL[place] (SBHLAB)[address] Lymphocytes (Bld) [#/Vol] 2.4 10*3/uL Normal 1.0-4.3 [facility] Comment on above: Performed By: #### L [id number] ####Software Designer: LESLEE MARY ([id number])[facility]ENTERKey[facility] (SBHLAB)[address] Lymphocytes/100 WBC (Bld) 28.9 % Normal 15.0-45.0 [facility] Comment on above: Performed By: #### L [id number] ####Software Designer: LESLEE MARY ([id number])[facility]ENTERKeyon [place] (SBHLAB)[address] [place] [address] MCH (RBC) [Entitic mass] 32.9 pg Normal 26.0-34.0 [facility] Comment on above: Performed By: #### L [id number] ####Software Designer: LESLEE TURKTYRONE ([id number])[facility]ENTERKey[facility] [place] (SBHLAB)[address] MCHC 32.0 % Normal 30.5-36.0 [facility] Comment on above: Performed By: #### L [id number] ####Software Designer: LESLEE TURKTYRONE ([id number])[facility]ENTERKeyon [facility] LU[facility]'S HOSPITALMarguerite (SBHLAB)[address] MCV (RBC) [Entitic vol] 102.8 fL High 77.0-99.0 [facility] Comment on above: Performed By: #### L [id number] ####Software Designer: LESLEE HERNANDEZ ([id number])[facility]ENTERKeyon [facility]'S HOSPITALMarguerite (SBHLAB)[address] Monocytes (Bld) [#/Vol] 0.6 10*3/uL Normal 0.0-0.9 [facility] Comment on above: Performed By: #### L [id number] ####Software Designer: LESLEE HERNANDEZ ([id number])[facility]ENTERA [place] (SBHLAB)[address] Monocytes/100 WBC (Bld) 6.5 % Normal 5.0-13.0 [facility] Comment on above: Performed By: #### L [id number] ####Software Designer: LESLEE HERNANDEZ ([id number])[facility]ENTERA [place] (SBHLAB)[address] NEUTROPHILS ABSOLUTE 5.4 10*3/uL Normal 1.8-7.5 [facility] Comment on above: Performed By: #### L [id number] ####Software Designer: LESLEE TURKTYRONE ([id number])[facility]ENTERA [place] (SBHLAB)[address] Neutrophils/100 WBC (Bld) 63.8 % Normal 38.0-82.0 [facility] Comment on above: Performed By: #### L [id number] ####Software Designer: LESLEE HERNANDEZ ([id number])[facility]ENTERA [place] (SBHLAB)[address] NRBC 0.0 /100 WBCs Normal 0.0-2.0 [facility] Comment on above: Performed By: #### L [id number] ####Software Designer: LESLEE HERNANDEZ ([id number])[facility]ENTERA [place] (SBHLAB)[address] Platelet mean volume (Bld) [Entitic vol] 9.8 fL Normal 9.0-12.7 [facility] Comment on above: Performed By: #### L [id number] ####Software Designer: LESLEE HERNANDEZ ([id number])[facility]ENTERA [place] (SBHLAB)[address] Platelets (Bld) [#/Vol] 270 10*3/uL Normal 140-440 [facility] Comment on above: Performed By: #### L [id number] ####Software Designer: LESLEE HERNANDEZ ([id number])[facility] CENTERKeyon [place] (SBHLAB)[address] RBC (Bld) [#/Vol] 4.71 10*6/uL Normal 4.40-5.90 [facility] Comment on above: Performed By: #### L [id number] ####Software Designer: LESLEE HERNANDEZ ([id number])[facility] (SBHLAB)[address] WBC (Bld) [#/Vol] 8.4 10*3/uL Normal 3.6-10.7 [facility] Comment on above: Performed By: #### L [id number] ####Software Designer: LESLEE HERNANDEZ ([id number])[facility] ([facility])[address] [place] [address] CT ABDOMEN PELVIS W CONTRAST on 07-11-2024 CT ABDOMEN PELVIS W CONTRAST Normal [facility] CT Abdomen and Pelvis W cont rast [place] 07-11-2024 Trace left pleural effusion. Resolving right lung base infiltrates. Persistent small volume of intra-abdominal and intrapelvic ascites with edema throughout the mesentery. Hepatic steatosis. Colonic diverticulosis. Additional findings, as above. Report Dictated on Electronically Signed By: Kaitlin Goldsmith MD Electronically Signed Date/Time: 07/11/2024 10:46 PM [facility] Patient Name: [facility]LO MEDINA : 1980 [id number] Exam Date/Time: 07/11/2024 21:05 Procedure: CT ABDOMEN [...] umbilical hernia is present at the midline. [facility] Kaitlin Goldsmith MD - 07/11/2024 Patient [...] Electronically Signed Date/Time: 07/11/2024 10:46 PM EST [facility] Radiology Study observation (narrative) [facility] ED Nursing Noteon 07-11-2024 ED Nursing Note [employer] RN called for USIV Normal [facility] ED Nursing Note Patient arrives to e with complaints of upper abd pain. States he was here last week and had to get diuretics, he had fluid retention. Endorses similar sx and increased weight. Pt weight Friday was 170lbs, today 174lbs. Denies any SOB Normal [facility] ED Provider Noteon ED Provider Note Normal [facility] HEPATIC FUNCTION PANELon Albumin [Mass/Vol] 3.3 g/dL Low 3.5-5.0 [facility] Comment on above: Performed By: #### L AB106, LAB15, [id number], LAB20 ####Software Designer: LESLEE HERNANDEZ ([id number])[facility] (SBHLAB)[address] [place] [address] ALP [Catalytic activity/Vol] 213 U/L High 40-150 [facility] Comment on above: Performed By: #### L AB106, LAB15, [id number], LAB20 ####Software Designer: LESLEE HERNANDEZ ([id number])[facility]ENTERA BARBMIMBR[facility]ITALN (SBHLAB)[address] [place] [address] [place] ALT [Catalytic activity/Vol] 134 U/L High <40 [facility] Comment on above: Performed By: #### L AB106, LAB15, [id number], LAB20 ####Software Designer: LESLEE HERNANDEZ ([id number])[facility] (SBHLAB)[address] [place] [address] [place] AST [Catalytic activity/Vol] 75 U/L High <34 [facility] Comment on above: Performed By: #### L AB106, LAB15, [id number], LAB20 ####Software Designer: LESLEE MARY ([id number])[facility] (HLAB)[address] Bilirubin [Mass/Vol] 2.2 mg/dL High <1.2 [facility] Comment on above: Performed By: #### L AB106, LAB15, [id number], LAB20 ####Software Designer: LESLEE MARY ([id number])[facility] (HLAB)[address] Bilirubin.indirect [Mass/Vol] 1.0 mg/dL High <0.5 [facility] Comment on above: Performed By: #### L AB106, LAB15, [id number], LAB20 ####Software Designer: LESLEEFIDELIA HERNANDEZ ([id number])[facility] (HLAB)[address] Protein [Mass/Vol] 6.4 g/dL Normal 6.4-8.3 [facility] Comment on above: Result Comment: Seru m protein values are higher than plasma values. Samples from recumbent persons are lower by up to 0.5 g/dL as compared to ambulatory persons. After 60 years values are lower by up to 0.2 g/dL. Performed By: #### L AB106, LAB15, [id number], LAB20 ####Software Designer: LESLEE HERNANDEZ ([id number])[facility] (SBHLAB)[address] HIGH SENSITIVITY TROPONIN, S ERIAL BASELINEon 07-11-2024 TROPONIN HIGH SENSITIVITY BASELINE 218 ng/L Critically high <=35 [facility] Comment on above: Performed By: #### L AB106, LAB15, [id number], LAB20 ####Software Designer: LESLEE HERNANDEZ ([id number])[facility] (SBHLAB)[address] HIGH SENSITIVITY TROPONIN, S ERIAL, SECOND TESTon 07-11-2024 TROPONIN HS DELTA, BASELINE TO SECOND 3 ng/L Normal <=2 [facility] Comment on above: Result Comment: A tr [...] further clinical guidance. Performed By: #### L [id number] ####Software Designer: LESLEE HERNANDEZ ([id number])[facility] (SBHLAB)[address] TROPONIN HS, SERIAL REFLEX, TEST TWO 221 ng/L Critically high <=35 [facility] Comment on above: Performed By: #### L [id number] ####Software Designer: LESLEE HERNANDEZ ([id number])[facility] (SBHLAB)[address] Hepatic function 2000 panelo n 07-11-2024 Albumin [Mass/Vol] 3.3 g/dL Low 3.5 - 5.0 g/dL [facility] ALP [Catalytic activity/Vol] 213 U/L High 40 - 150 U/L [facility] [employer] ALT [Catalytic activity/Vol] 134 U/L High NINF - 40 U/L [facility] AST [Catalytic activity/Vol] 75 U/L High NINF - 34 U/L [facility] Bilirubin [Mass/Vol] 2.2 mg/dL High NINF - 1.2 mg/dL [facility] Bilirubin.conjugated [Mass/Vol] 1 mg/dL High NINF - 0.5 mg/dL [facility] Protein [Mass/Vol] 6.4 g/dL 6.4 - 8.3 g/dL [facility] Comment on above: Serum protein values are higher than plasma values. Samples from recumbent persons are lower by up to 0.5 g/dL as compared to ambulatory persons. After 60 years values are lower by up to 0.2 g/dL. NT PRO BNPon 07-11-2024 Natriuretic peptide B (Bld) [Mass/Vol] 95960 pg/mL High <125 [facility] Comment on above: Performed By: #### L AB106, LAB15, [id number], LAB20 ####Software Designer: LESLEE HERNANDEZ ([id number])[facility] ([facility])[address] [place] [address] Natriuretic peptide B [Mass/ Vol]on 07-11-2024 Interpretation and review of laboratory results Abnormal [facility] Natriuretic peptide B (Bld) [Mass/Vol] 38544 pg/mL High NINF - 125 pg/mL [facility] No Panel InformationOrdered By: La Ambrosio on 07-11-2024 Interpretation and review of laboratory results Abnormal [facility] Troponin HS Delta, Baseline to Second 3 ng/L NINF - 2 ng/L [facility] Comment on above: A troponin delta gre [...] ng/L Critically high NINF - 35 ng/L [facility] No Panel InformationOrdered By: Fabiola Singh on 07-11-2024 Interpretation and review of laboratory results Abnormal [facility] Troponin HS, Serial Baseline 218 ng/L Critically high NINF - 35 ng/L [facility] No Panel Informationon 07-11 Interpretation and review of laboratory results Abnormal [facility] XR Chest Single viewon 07-11 Cardiomegaly. No confluent consolidation. Report Dictated on Electronically Signed By: Kaitlin Goldsmith MD Electronically Signed Date/Time: 07/11/2024 6:52 PM EST [facility] Patient Name: CARLO MEDINA : 1980 Exam Date/Time: 07/11/2024 18:52 Procedure: XR CHEST 1 VIEW Ordering Provider: KENNY J Reason For Exam: CHF, SOB INDICATION: Shortness of breath. VIEWS: Chest portable AP upright-on image COMPARISON: 07/03/2024 FINDINGS: The trachea is midline. The cardiac silhouette is enlarged. The costophrenic angles are sharp. There is no confluent consolidation. [facility] Kaitlin Goldsmith MD - 07/11/2024 Patient [...] Electronically Signed Date/Time: 07/11/2024 6:52 PM EST [facility] [employer] Radiology Study observation (narrative) shoutr XR Chest Single viewOrdered By: Kaitlin Goldsmith on 07-11-2024 shoutr Work Phone: aPTT Coag (Bld) [Time]on aPTT Coag (PPP) [Time] 24.2 s 20.0 - 30.5 s [facility] [employer] Interpretation and review of laboratory results Normal [facility] [employer] NOTE: The therapeuti c time for Heparin anticoagulation, based on Xa activity inhibition, is an APTT of 46-80 seconds. [facility] ECG 12 leadon 07-07-2024 Sinus Tachycardia -Left atrial enlargement. Voltage criteria for LVH (S(V1)+R(V6) exceeds 3.50 mV). -Nonspecific ST depression + Nonspecific T-abnormality -Seen with left ventricular hypertrophy (strain). ABNORMAL [facility] Progress Noteon 07-07-2024 Progress Note Normal [facility] [id number] 07-05-2024 [id number] Normal [facility] Nursing Noteon 07-05-2024 Nursing Note Normal [facility] Progress Noteon 07-05-2024 Progress Note Nutrition rescreen completed. Chart reviewed. Patient to be monitored and followed by the diet licensed chemical spray technician. Normal [facility] Progress Note Normal [facility] Progress Note Normal [facility] BASIC METABOLIC PANELon Anion gap [Moles/Vol] 6 mmol/L Normal 3-13 [facility] Comment on above: Performed By: #### L AB15, [id number] ####Software Designer: NICOLE BOWRES ([id number])[facility] ([facility])[address] [place] [address] Calcium [Mass/Vol] 8.2 mg/dL Low 8.4-10.2 [facility] Comment on above: Performed By: #### L AB15, [id number] ####Software Designer: NICOLE BOWERS ([id number])[facility] [place] [address] [place] Chloride [Moles/Vol] 103 mmol/L Normal 98-107 [facility] Comment on above: Performed By: #### L AB15, [id number] ####Software Designer: NICOLE BOWERS ([id number])[facility] [place] [address] [place] CO2 [Moles/Vol] 25 mmol/L Normal 22-29 [facility] Comment on above: Performed By: #### L AB15, [id number] ####Software Designer: NICOEL BOWERS ([id number])[facility] ([address] Creatinine [Mass/Vol] 2.18 mg/dL High 0.72-1.25 [facility] Comment on above: Performed By: #### L AB15, [id number] ####Software Designer: NICOLE BOWERS ([id number])[facility])[address] [place] [address] [place] GLOMERULAR FILTRATION RATE ML/MIN/1.73 SQ M.PREDICTED 36.9 mL/min/1.73m*2 Low >60.0 [facility] Comment on above: Result Comment: Calc ulation based on the Chronic Kidney Disease Epidemiology Collaboration (CKD-EPI) equation refit without adjustment for race Performed By: #### L 15, [id number] ####Software Designer: NICOLE BOWERS ([id number])[facility])[address] [place] [address] Glucose [Mass/Vol] 109 mg/dL High 74-100 [facility] Comment on above: Performed By: #### L AB15, [id number] ####Software Designer: NICOLE BOWERS ([id number])[facility])[address] [place] [address] Potassium [Moles/Vol] 3.5 mmol/L Normal 3.5-5.1 [facility] Comment on above: Result Comment: [facility] potassium values may be up to 0.5 mmol/L lower than serum values. Performed By: #### L AB15, [id number] ####Software Designer: NICOLE BOWERS ([id number])[facility])[address] [place] [address] [place] Sodium [Moles/Vol] 134 mmol/L Low 136-145 [facility] Comment on above: Performed By: #### L AB15, [id number] ####Software Designer: NICOLE BOWERS ([id number])[facility])[address] [place] [address] [place] Urea nitrogen [Mass/Vol] 36 mg/dL High 8-21 [facility] Comment on above: Performed By: #### L AB15, [id number] ####Software Designer: NICOLE BOWERS ([id number])[facility] ([facility])[address] [place] [address] Basic metabolic 1998 panelon 07-04-2024 Anion gap [Moles/Vol] 6 mmol/L 3 - 13 mmol/L [facility] Calcium [Mass/Vol] 8.2 mg/dL Low 8.4 - 10. 2 mg/dL [facility] Chloride [Moles/Vol] 103 mmol/L 98 - 10 7 mmol/L [facility] CO2 [Moles/Vol] 25 mmol/L 22 - 29 mmol/L [facility] Creatinine [Mass/Vol] 2.18 mg/dL High 0.72 - 1.25 mg/dL [facility] GFR/1.73 sq M.predicted (S/P/Bld) [Vol rate/Area] 36.9 mL/min Low - PINF [facility] Comment on above: Calculation based on the Chronic Kidney Disease Epidemiology Collaboration (CKD-EPI) equation refit without adjustment for race Glucose [Mass/Vol] 109 mg/dL High 74 - 100 mg/dL [facility] Interpretation and review of laboratory results Abnormal [facility] Potassium [Moles/Vol] 3.5 mmol/L 3.5 - 5.1 mmol/L [facility] Comment on above: Plasma potassium heidi ues may be up to 0.5 mmol/L lower than serum values. Sodium [Moles/Vol] 134 mmol/L Low 136 - 145 mmol/L [facility] Urea nitrogen [Mass/Vol] 36 mg/dL High 8 - 21 mg/dL [facility] CBC W Auto Differential pane l (Bld)Ordered By: Ragini Weinberg on 07-04-2024 Basophils (Bld) [#/Vol] 0 10*3/uL 0.0 - 0.2 10*3/uL [facility] Basophils/100 WBC (Bld) 0.3 % 0.0 - 2.0 % [facility] Eosinophils (Bld) [#/Vol] 0 10*3/uL 0.0 - 0.5 10*3/uL [facility] Eosinophils/100 WBC (Bld) 0.5 % 0.0 - 6.0 % [facility] Erythrocyte distribution width (RBC) [Ratio] 14.3 % 11.5 - 15.0 % [facility] Hematocrit (Bld) [Volume fraction] 45.1 % 40.0 - 52.0 % [facility] Hemoglobin (Bld) [Mass/Vol] 14.3 g/dL 13.0 - 18.0 g/dL [facility] Immature granulocytes (Bld) [#/Vol] 0 10*3/uL NINF - 0.1 10*3/uL [facility] Immature granulocytes/100 WBC (Bld) 0.5 % 0.0 - 2.0 % [facility] Interpretation and review of laboratory results Abnormal [facility] Lymphocytes (Bld) [#/Vol] 2.7 10*3/uL 1.0 - 4.3 10*3/uL [facility] Lymphocytes/100 WBC (Bld) 31 % 15.0 - 45.0 % [facility] MCH (RBC) [Entitic mass] 32.9 pg 26.0 - 34.0 pg [facility] MCHC (RBC) [Mass/Vol] 31.7 % 30.5 - 36.0 % [facility] MCV (RBC) [Entitic vol] 103.9 fL High 77.0 - 99.0 fL [facility] Monocytes (Bld) [#/Vol] 0.8 10*3/uL 0.0 - 0.9 10*3/uL [facility] Monocytes/100 WBC (Bld) 8.8 % 5.0 - 13.0 % [facility] Neutrophils (Bld) [#/Vol] 5.1 10*3/uL 1.8 - 7.5 10*3/uL [facility] Neutrophils/100 WBC (Bld) 58.9 % 38.0 - 82.0 % [facility] Nucleated RBC/100 WBC (Bld) [Ratio] 0.2 % [facility] Platelet mean volume (Bld) [Entitic vol] 10.7 fL 9.0 - 12.7 fL [facility] Platelets (Bld) [#/Vol] 239 10*3/uL 140 - 440 10*3/uL [facility] RBC (Bld) [#/Vol] 4.34 10*6/uL Low 4.40 - 5.9 0 10*6/uL [facility] WBC (Bld) [#/Vol] 8.6 10*3/uL 3.6 - 10.7 10*3/uL [facility] CBC WITH AUTO DIFFERENTIALon 07-04-2024 Basophils (Bld) [#/Vol] 0.0 10*3/uL Normal 0.0-0.2 [facility] Comment on above: Performed By: #### L [id number] ####Software Designer: NICOLE BOWERS ([id number])[facility] ([facility])[address] [place] [address] [place] Basophils/100 WBC (Bld) 0.3 % Normal 0.0-2.0 [facility] Comment on above: Performed By: #### L [id number] ####Software Designer: NICOLE BOWERS ([id number])[facility])[address] [place] [address] Eosinophils (Bld) [#/Vol] 0.0 10*3/uL Normal 0.0-0.5 [facility] Comment on above: Performed By: #### L [id number] ####Software Designer: NCIOLE BOWERS ([id number])[facility] ([facility])[address] [place] [address] [place] Eosinophils/100 WBC (Bld) 0.5 % Normal 0.0-6.0 [facility] Comment on above: Performed By: #### L [id number] ####Software Designer: NICOLE BOWERS ([id number])[facility])[address] [place] [address] Erythrocyte distribution width (RBC) [Ratio] 14.3 % Normal 11.5-15.0 [facility] Comment on above: Performed By: #### L [id number] ####Software Designer: NICOLE BOWERS ([id number])[facility] ([facility])[address] [place] [address] Hematocrit (Bld) [Volume fraction] 45.1 % Normal 40.0-52.0 [facility] Comment on above: Performed By: #### L [id number] ####Software Designer: NICOLE BOWERS ([id number])[facility])[address] [place] [address] Hemoglobin (Bld) [Mass/Vol] 14.3 g/dL Normal 13.0-18.0 [facility] Comment on above: Performed By: #### L [id number] ####Software Designer: NICOLE BOWERS ([id number])[facility])[address] [place] [address] IMMATURE GRANS % 0.5 % Normal 0.0-2.0 [facility] Comment on above: Performed By: #### L [id number] ####Software Designer: NICOLE BOWERS ([id number])[address] IMMATURE GRANS ABSOLUTE 0.0 10*3/uL Normal <0.1 [facility] Comment on above: Performed By: #### L [id number] ####Software Designer: NICOLE BOWERS ([id number])[address] Lymphocytes (Bld) [#/Vol] 2.7 10*3/uL Normal 1.0-4.3 [facility] Comment on above: Performed By: #### L [id number] ####Software Designer: NICOLE BOWERS ([id number])[address] Lymphocytes/100 WBC (Bld) 31.0 % Normal 15.0-45.0 [facility] Comment on above: Performed By: #### L [id number] ####Software Designer: NICOLE BOWERS ([id number])[facility])[address] [place] [address] MCH (RBC) [Entitic mass] 32.9 pg Normal 26.0-34.0 [facility] Comment on above: Performed By: #### L [id number] ####Software Designer: NICOLE BOWERS ([id number])[facility])[address] [place] [address] MCHC 31.7 % Normal 30.5-36.0 [facility] Comment on above: Performed By: #### L [id number] ####Software Designer: NICOLE BOWERS ([id number])[facility] ([facility])[address] [place] [address] MCV (RBC) [Entitic vol] 103.9 fL High 77.0-99.0 [facility] Comment on above: Performed By: #### L [id number] ####Software Designer: NICOLE BOWERS ([id number])[facility] ([facility])[address] [place] [address] Monocytes (Bld) [#/Vol] 0.8 10*3/uL Normal 0.0-0.9 [facility] Comment on above: Performed By: #### L [id number] ####Software Designer: NICOLE BOWERS ([id number])[facility] ([facility])[address] [place] [address] Monocytes/100 WBC (Bld) 8.8 % Normal 5.0-13.0 [facility] Comment on above: Performed By: #### L [id number] ####Software Designer: NICOLE BOWERS ([id number])[facility] ([facility])[address] [place] [address] NEUTROPHILS ABSOLUTE 5.1 10*3/uL Normal 1.8-7.5 [facility] Comment on above: Performed By: #### L [id number] ####Software Designer: NICOLE BOWERS ([id number])[facility] ([facility])[address] [place] [address] Neutrophils/100 WBC (Bld) 58.9 % Normal 38.0-82.0 [facility] Comment on above: Performed By: #### L [id number] ####Software Designer: NICOLE BOWERS ([id number])[facility] ([facility])[address] [place] [address] [place] NRBC 0.2 /100 WBCs Normal 0.0-2.0 [facility] Comment on above: Performed By: #### L [id number] ####Software Designer: NICOLE BOWERS ([id number])[facility] ([facility])[address] [place] [address] Platelet mean volume (Bld) [Entitic vol] 10.7 fL Normal 9.0-12.7 [facility] Comment on above: Performed By: #### L [id number] ####Software Designer: NICOLE BOWERS ([id number])[facility] ([facility])[address] [place] [address] Platelets (Bld) [#/Vol] 239 10*3/uL Normal 140-440 [facility] Comment on above: Performed By: #### L [id number] ####Software Designer: NICOLE BOWERS ([id number])[facility] ([facility])[address] [place] [address] RBC (Bld) [#/Vol] 4.34 10*6/uL Low 4.40-5.90 [facility] Comment on above: Performed By: #### L [id number] ####Software Designer: NICOLE BOWERS ([id number])[facility] ([facility])[address] [place] [address] WBC (Bld) [#/Vol] 8.6 10*3/uL Normal 3.6-10.7 [facility] Comment on above: Performed By: #### L [id number] ####Software Designer: NICOLE BOWERS ([id number])[facility] ([facility])[address] [place] [address] COMPREHENSIVE METABOLIC PANE Ming 07-04-2024 Albumin [Mass/Vol] 2.7 g/dL Low 3.5-5.0 [facility] Comment on above: Performed By: #### L [id number] ####Software Designer: NICOLE BOWERS ([id number])[facility])[address] [place] [address] ALP [Catalytic activity/Vol] 229 U/L High 40-150 [facility] Comment on above: Performed By: #### L [id number] ####Software Designer: NICOLE BOWERS ([id number])[facility])[address] [place] [address] ALT [Catalytic activity/Vol] 126 U/L High <40 [facility] Comment on above: Performed By: #### L [id number] ####Software Designer: NICOLE BOWERS ([id number])[facility] ([facility])[address] [place] [address] Anion gap [Moles/Vol] 9 mmol/L Normal 3-13 [facility] Comment on above: Performed By: #### L [id number] ####Software Designer: NICOLE BOWERS ([id number])[facility] ([facility])[address] [place] [address] AST [Catalytic activity/Vol] 47 U/L High <34 [facility] Comment on above: Performed By: #### L [id number] ####Software Designer: NICOLE BOWERS ([id number])[facility] ([facility])[address] [place] [address] Bilirubin [Mass/Vol] 1.3 mg/dL High <1.2 [facility] Comment on above: Performed By: #### L [id number] ####Software Designer: NICOLE BOWERS ([id number])[facility] ([facility])[address] [place] [address] Calcium [Mass/Vol] 8.0 mg/dL Low 8.4-10.2 [facility] Comment on above: Performed By: #### L [id number] ####Software Designer: NICOLE BOWERS ([id number])[facility] ([facility])[address] [place] [address] [place] Chloride [Moles/Vol] 106 mmol/L Normal 98-107 [facility] Comment on above: Performed By: #### L [id number] ####Software Designer: NICOLE BOWERS ([id number])[facility] ([facility])[address] [place] [address] [place] CO2 [Moles/Vol] 20 mmol/L Low 22-29 [facility] Comment on above: Performed By: #### L [id number] ####Software Designer: NICOLE BOWERS ([id number])[facility])[address] [place] [address] Creatinine [Mass/Vol] 2.12 mg/dL High 0.72-1.25 [facility] Comment on above: Performed By: #### L [id number] ####Software Designer: NICOLE BOWERS ([id number])[facility])[address] [place] [address] GLOMERULAR FILTRATION RATE ML/MIN/1.73 SQ M.PREDICTED 38.2 mL/min/1.73m*2 Low >60.0 [facility] Comment on above: Result Comment: Calc ulation based on the Chronic Kidney Disease Epidemiology Collaboration (CKD-EPI) equation refit without adjustment for race Performed By: #### L [id number] ####Software Designer: NICOLE BOWERS ([id number])[facility])[address] [place] [address] Glucose [Mass/Vol] 95 mg/dL Normal 74-100 [facility] Comment on above: Performed By: #### L [id number] ####Software Designer: NICOLE BOWERS ([id number])[facility])[address] [place] [address] Potassium [Moles/Vol] 4.3 mmol/L Normal 3.5-5.1 [facility] Comment on above: Result Comment: [facility] potassium values may be up to 0.5 mmol/L lower than serum values. Performed By: #### L AB17 ####Software Designer: NICOLE BOWERS ([id number])[facility])[address] [place] [address] Protein [Mass/Vol] 5.3 g/dL Low 6.4-8.3 [facility] Comment on above: Performed By: #### L [id number] ####Software Designer: NICOLE BOWERS ([id number])[facility])[address] [place] [address] Sodium [Moles/Vol] 135 mmol/L Low 136-145 [facility] Comment on above: Performed By: #### L [id number] ####Software Designer: NICOLE [id number])[facility] ([facility])[address] [place] [address] Urea nitrogen [Mass/Vol] 36 mg/dL High 8-21 [facility] Comment on above: Performed By: #### L [id number] ####Software Designer: NICOLE BOWERS ([id number])[facility])[address] [place] [address] Comprehensive metabolic 1998 panelon 07-04-2024 Albumin [Mass/Vol] 2.7 g/dL Low 3.5 - 5.0 g/dL [facility] ALP [Catalytic activity/Vol] 229 U/L High 40 - 150 U/L [facility] ALT [Catalytic activity/Vol] 126 U/L High NINF - 40 U/L [facility] Anion gap [Moles/Vol] 9 mmol/L 3 - 13 mmol/L [facility] AST [Catalytic activity/Vol] 47 U/L [facility] U/L [facility] Bilirubin [Mass/Vol] 1.3 mg/dL High NINF - 1.2 mg/dL [facility] Calcium [Mass/Vol] 8 mg/dL Low 8.4 - 10. 2 mg/dL [facility] Chloride [Moles/Vol] 106 mmol/L 98 - 10 7 mmol/L [facility] CO2 [Moles/Vol] 20 mmol/L Low 22 - 29 mmol/L [facility] Creatinine [Mass/Vol] 2.12 mg/dL High 0.72 - 1.25 mg/dL [facility] GFR/1.73 sq M.predicted (S/P/Bld) [Vol rate/Area] 38.2 mL/min Low - PINF [facility] Comment on above: Calculation based on the Chronic Kidney Disease Epidemiology Collaboration (CKD-EPI) equation refit without adjustment for race Glucose [Mass/Vol] 95 mg/dL 74 - 100 mg/dL [facility] Interpretation and review of laboratory results Abnormal [facility] Potassium [Moles/Vol] 4.3 mmol/L 3.5 - 5.1 mmol/L [facility] Comment on above: Plasma potassium heidi ues may be up to 0.5 mmol/L lower than serum values. Protein [Mass/Vol] 5.3 g/dL Low 6.4 - 8.3 g/dL [facility] Sodium [Moles/Vol] 135 mmol/L Low 136 - 145 mmol/L [facility] Urea nitrogen [Mass/Vol] 36 mg/dL High 8 - 21 mg/dL [facility] LACTIC ACID WITH REFLEXon Lactate [Moles/Vol] 1.4 mmol/L Normal 0.5-2.2 [facility] Comment on above: Performed By: #### L [id number] ####Software Designer: NICOLE BOWERS ([id number])[facility] ([facility])[address] [place] [address] Lactate [Moles/Vol] 2.1 mmol/L Normal 0.5-2.2 [facility] Comment on above: Performed By: #### L [id number] ####Software Designer: NICOLE BOWERS ([id number])[facility] ([facility])[address] [place] [address] Laboratory - Chemistry and C hemistry - challengeon 07-04-2024 Magnesium [Mass/Vol] 2 mg/dL 1.6 - 2 .6 mg/dL [facility] Lactate [Moles/Vol] 2.1 mmol/L 0.5 - 2. 2 mmol/L [facility] Urea nitrogen (U) [Mass/Vol] 620 mg/dL [facility] MAGNESIUMon 07-04-2024 Magnesium [Mass/Vol] 2.0 mg/dL Normal 1.6-2.6 [facility] Comment on above: Result Comment: ALEJANDRO Aleman COMMENTS:Higher values can be expected in females during menses. Performed By: #### L AB15, [id number] ####Software Designer: NICOLE BOWERS ([id number])[facility] ([facility])[address] [place] [address] Magnesium [Mass/Vol]on 07-04 Interpretation and review of laboratory results Normal [facility] Higher values can be expected in females during menses. [facility] No Panel Informationon 07-04 Interpretation and review of laboratory results Normal [facility] Interpretation and review of laboratory results Normal [facility] CREATININE, URINE 115.3 mg/dL 63.0 - 166 .0 mg/dL [facility] UREA (BUN), URINE, FRACTIONAL EXCRETION 30.9 [facility] Comment on above: Fractional excretion of urea under 35% is consistent with a prerenal cause. UREA (BUN), URINE, TUBULAR REABSORPTION 0.7 [facility] Progress Noteon 07-04-2024 Progress Note Normal [facility] Progress Note Normal [facility] BLOOD GAS, VENOUSon 07-03-19 25 Base excess Calc (BldV) [Moles/Vol] -6.8000 mmol/L Low -3.0-3.0 [facility] Comment on above: Performed By: #### L AB79 ####Software Designer: LESLEE HERNANDEZ ([id number])[facility] SYSTEM[facility] ([facility])[address] [place] [address] CO2 [Moles/Vol] 19.5 mmol/L Low 23.0-30.0 [facility] Comment on above: Performed By: #### L AB79 ####Software Designer: LESLEE HERNANDEZ ([id number])[facility] ([facility])[address] [place] [address] HCO3 (Bld) [Moles/Vol] 18.4 mmol/L Low 21.0-30.0 [facility] Comment on above: Performed By: #### L AB79 ####Software Designer: LESLEE HERNANDEZ ([id number])[facility] ([facility])[address] [place] [address] [place] Hemoglobin (Bld) [Mass/Vol] 15.2 g/dL Normal Screen only [facility] Comment on above: Performed By: #### L AB79 ####Software Designer: LESLEE HERNANDEZ ([id number])[facility] ([facility])[address] OXYGEN (MM HG) IN VENOUS BLOOD 39.3 mm Hg Normal [facility] Comment on above: Performed By: #### L AB79 ####Software Designer: LESLEE HERNANDEZ ([id number])[facility] ([facility])[address] OXYGEN SATURATION (%) IN VENOUS BLOOD 60.4 % Normal [facility] Comment on above: Performed By: #### L AB79 ####Software Designer: LESLEE TORRESCER ([id number])[facility] CENTERKeyon [facility]ITAL[facility] ([facility])[address] PCO2, JAZ 36.1 mm Hg Low 38.0-56.0 [facility] Comment on above: Performed By: #### L [id number] ####Software Designer: LESLEE TURKTYRONE ([id number])[facility] (SBHLAB)[address] PH VENOUS 7.325 Normal 7.320-7.420 [facility] Comment on above: Performed By: #### L [id number] ####Software Designer: LESLEE TURKTYRONE ([id number])[facility] (SBHLAB)[address] SOURCE OF OXYGEN Room Air Normal [facility] Comment on above: Result Comment: ALEJANDRO Aleman COMMENTS:Assessment of oxygenation is best done with an arterial blood gas determination. Reference ranges for pO2, bicarbonate, and base excess are for mixed venous blood. Specimens drawn from a peripheral vein will often have higher values. Performed By: #### L [id number] ####Software Designer: LESLEE TURKTYRONE ([id number])[facility] (SB[facility]AB)[address] CBC W Auto Differential pane l (Bld)on 07-03-2024 Basophils (Bld) [#/Vol] 0 10*3/uL 0.0 - 0.2 10*3/uL [facility] Basophils/100 WBC (Bld) 0.3 % 0.0 - 2.0 % [facility] Eosinophils (Bld) [#/Vol] 0 10*3/uL 0.0 - 0.5 10*3/uL [facility] Eosinophils/100 WBC (Bld) 0 % 0.0 - 6.0 % [facility] Erythrocyte distribution width (RBC) [Ratio] 14.6 % 11.5 - 15.0 % [facility] Hematocrit (Bld) [Volume fraction] 48.6 % 40.0 - 52.0 % [facility] Hemoglobin (Bld) [Mass/Vol] 15.7 g/dL 13.0 - 18.0 g/dL [facility] Immature granulocytes (Bld) [#/Vol] 0 10*3/uL NINF - 0.1 10*3/uL [facility] Immature granulocytes/100 WBC (Bld) 0.4 % 0.0 - 2.0 % [facility] Interpretation and review of laboratory results Abnormal [facility] Lymphocytes (Bld) [#/Vol] 1.5 10*3/uL 1.0 - 4.3 10*3/uL [facility] Lymphocytes/100 WBC (Bld) 21.1 % 15.0 - 45.0 % [facility] MCH (RBC) [Entitic mass] 33 pg 26.0 - 34.0 pg [facility] MCHC (RBC) [Mass/Vol] 32.3 % 30.5 - 36.0 % [facility] MCV (RBC) [Entitic vol] 102.1 fL High 77.0 - 99.0 fL [facility] Monocytes (Bld) [#/Vol] 0.4 10*3/uL 0.0 - 0.9 10*3/uL [facility] Monocytes/100 WBC (Bld) 5.4 % 5.0 - 13.0 % [facility] Neutrophils (Bld) [#/Vol] 5.3 10*3/uL 1.8 - 7.5 10*3/uL [facility] Neutrophils/100 WBC (Bld) 72.8 % 38.0 - 82.0 % [facility] Nucleated RBC/100 WBC (Bld) [Ratio] 0.3 % [facility] Platelet mean volume (Bld) [Entitic vol] 10.2 fL 9.0 - 12.7 fL [facility] Platelets (Bld) [#/Vol] 261 10*3/uL 140 - 440 10*3/uL [facility] RBC (Bld) [#/Vol] 4.76 10*6/uL 4.40 - 5.9 0 10*6/uL [facility] WBC (Bld) [#/Vol] 7.3 10*3/uL 3.6 - 10.7 10*3/uL [facility] CBC WITH AUTO DIFFERENTIALon 07-03-2024 Basophils (Bld) [#/Vol] 0.0 10*3/uL Normal 0.0-0.2 [facility] Comment on above: Performed By: #### L [id number] ####Software Designer: LESLEE HERNANDEZ ([id number])[facility] [place] (SBHLAB)[address] [place] [address] Basophils/100 WBC (Bld) 0.3 % Normal 0.0-2.0 [facility] Comment on above: Performed By: #### L [id number] ####Software Designer: LESLEE HERNANDEZ ([id number])[facility] ([facility] [place] [address] Eosinophils (Bld) [#/Vol] 0.0 10*3/uL Normal 0.0-0.5 [facility] Comment on above: Performed By: #### L [id number] ####Software Designer: LESLEE HERNANDEZ ([id number])[facility] [place] (SBAB)[address] [place] [address] Eosinophils/100 WBC (Bld) 0.0 % Normal 0.0-6.0 [facility] Comment on above: Performed By: #### L [id number] ####Software Designer: LESLEE HERNANDEZ ([id number])[facility] ([facility] [place] [address] Erythrocyte distribution width (RBC) [Ratio] 14.6 % Normal 11.5-15.0 [facility] Comment on above: Performed By: #### L [id number] ####Software Designer: LESLEE HERNANDEZ ([id number])[facility] [place] (SBAB)[address] [place] [address] Hematocrit (Bld) [Volume fraction] 48.6 % Normal 40.0-52.0 [facility] Comment on above: Performed By: #### L [id number] ####Software Designer: LESLEE HERNANDEZ ([id number])[facility] [place] (SBHLAB)[address] Hemoglobin (Bld) [Mass/Vol] 15.7 g/dL Normal 13.0-18.0 [facility] Comment on above: Performed By: #### L [id number] ####Software Designer: LESLEE HERNANDEZ ([id number])[facility] (SB[facility]AB)[address] IMMATURE GRANS % 0.4 % Normal 0.0-2.0 [facility] Comment on above: Performed By: #### L [id number] ####Software Designer: LESLEE HERNANDEZ ([id number])[facility] (SBHLAB)[address] IMMATURE GRANS ABSOLUTE 0.0 10*3/uL Normal <0.1 [facility] Comment on above: Performed By: #### L [id number] ####Software Designer: LESLEE HERNANDEZ ([id number])[facility] [place] (SBHLAB)[address] Lymphocytes (Bld) [#/Vol] 1.5 10*3/uL Normal 1.0-4.3 [facility] Comment on above: Performed By: #### L [id number] ####Software Designer: LESLEE HERNANDEZ ([id number])[facility] (SBHLAB)[address] Lymphocytes/100 WBC (Bld) 21.1 % Normal 15.0-45.0 [facility] Comment on above: Performed By: #### L [id number] ####Software Designer: LESLEE HERNANDEZ ([id number])[facility] (SB[facility]AB)[address] MCH (RBC) [Entitic mass] 33.0 pg Normal 26.0-34.0 [facility] Comment on above: Performed By: #### L [id number] ####Software Designer: LESLEE HERNANDEZ ([id number])[facility] [place] (SBHLAB)[address] MCHC 32.3 % Normal 30.5-36.0 [facility] Comment on above: Performed By: #### L [id number] ####Software Designer: LESLEE HERNANDEZ ([id number])[facility] [place] (SBHLAB)[address] MCV (RBC) [Entitic vol] 102.1 fL High 77.0-99.0 [facility] Comment on above: Performed By: #### L [id number] ####Software Designer: LESLEE HERNANDEZ ([id number])[facility] [place] (SBHLAB)[address] Monocytes (Bld) [#/Vol] 0.4 10*3/uL Normal 0.0-0.9 [facility] Comment on above: Performed By: #### L [id number] ####Software Designer: LESLEE HERNANDEZ ([id number])[facility] [place] (SBHLAB)[address] Monocytes/100 WBC (Bld) 5.4 % Normal 5.0-13.0 [facility] Comment on above: Performed By: #### L [id number] ####Software Designer: LESLEE HERNANDEZ ([id number])[facility] [place] (SBHLAB)[address] NEUTROPHILS ABSOLUTE 5.3 10*3/uL Normal 1.8-7.5 [facility] Comment on above: Performed By: #### L [id number] ####Software Designer: LESLEE HERNANDEZ ([id number])[facility] [place] (SBHLAB)[address] Neutrophils/100 WBC (Bld) 72.8 % Normal 38.0-82.0 [facility] Comment on above: Performed By: #### L [id number] ####Software Designer: LESLEE HERNANDEZ ([id number])[facility] [place] (SBHLAB)[address] [place] [address] NRBC 0.3 /100 WBCs Normal 0.0-2.0 [facility] Comment on above: Performed By: #### L [id number] ####Software Designer: LESLEE HERNANDEZ ([id number])[facility]ENTER[facility]on [place] (SBHLAB)[address] Platelet mean volume (Bld) [Entitic vol] 10.2 fL Normal 9.0-12.7 [facility] Comment on above: Performed By: #### L [id number] ####Software Designer: LESLEE HERNANDEZ ([id number])[facility] ([facility])[address] Platelets (Bld) [#/Vol] 261 10*3/uL Normal 140-440 [facility] Comment on above: Performed By: #### L [id number] ####Software Designer: LESLEE HERNANDEZ ([id number])[facility] (SB[facility])[address] [place] [address] RBC (Bld) [#/Vol] 4.76 10*6/uL Normal 4.40-5.90 [facility] Comment on above: Performed By: #### L [id number] ####Software Designer: LESLEE HERNANDEZ ([id number])[facility] (SBHL[facility])[address] [place] [address] WBC (Bld) [#/Vol] 7.3 10*3/uL Normal 3.6-10.7 [facility] Comment on above: Performed By: #### L [id number] ####Software Designer: LESLEE HERNANDEZ ([id number])[facility] [place] (SBHLAB)[address] COMPLETE URINALYSISon 2024 AMORPHOUS CRYSTALS (#/HPF) IN URINE Few Abnormal Negative [facility] Comment on above: Performed By: #### L [id number] ####Software Designer: LESLEE HERNANDEZ ([id number])[facility] (SBHLAB)[address] BACTERIA (#/HPF) IN URINE Negative Normal Negative [facility] Comment on above: Performed By: #### L [id number] ####Software Designer: LESLEE HERNANDEZ ([id number])[facility] (SBHLAB)[address] BILIRUBIN, TOTAL PRESENCE IN URINE Negative Normal Negative [facility] Comment on above: Performed By: #### L [id number] ####Software Designer: LESLEE HERNANDEZ ([id number])[facility] (SBHLAB)[address] Clarity (U) Turbid Abnormal Clear [facility] Comment on above: Performed By: #### L [id number] ####Software Designer: LESLEE HERNANDEZ ([id number])[facility] ([facility])[address] Color (U) Yellow Normal Lt. Yellow [facility] Comment on above: Performed By: #### L [id number] ####Software Designer: LESLEE HERNANDEZ ([id number])[facility] ([facility])[address] GLUCOSE (MG/DL) IN URINE Normal Normal Normal (<70) [facility] Comment on above: Performed By: #### L [id number] ####Software Designer: LESLEE HERNANDEZ ([id number])[facility] (HLAB)[address] HEMOGLOBIN PRESENCE IN URINE Negative Normal Negative [facility] Comment on above: Performed By: #### L [id number] ####Software Designer: LESLEE HERNANDEZ ([id number])[facility] (SBHLAB)[address] HYALINE CASTS (#/LPF) IN URINE SEDIMENT BY MICROSCOPY 3-5 Abnormal Negative [facility] Comment on above: Performed By: #### L [id number] ####Software Designer: LESLEE TURKTYRONE ([id number])[facility]ENTER[facility]on [facility] (SBHLAB)[address] Ketones Ql (U) Negative Normal Negative [facility] Comment on above: Performed By: #### L [id number] ####Software Designer: LESLEE TURKTYRONE ([id number])[facility] (SBHLAB)[address] LEUKOCYTE ESTERASE PRESENCE IN URINE BY TEST STRIP Negative Normal Negative [facility] Comment on above: Performed By: #### L [id number] ####Software Designer: LESLEE MCNEILLRAMON ([id number])[facility] (SBHLAB)[address] [place] [address] [place] MUCUS (#/LPF) IN URINE SEDIMENT Few Normal Negative [facility] Comment on above: Performed By: #### L [id number] ####Software Designer: LESLEE TURKTYRONE ([id number])[facility] (SBHLAB)[address] NITRITE PRESENCE IN URINE Negative Normal Negative [facility] Comment on above: Performed By: #### L [id number] ####Software Designer: LESLEE TURKTYRONE ([id number])[facility] (SBHLAB)[address] pH (U) 5.5 [pH] Normal 5.0-8.0 [facility] Comment on above: Performed By: #### L [id number] ####Software Designer: LESLEE TURKTYRONE ([id number])[facility] (SBHLAB)[address] Protein (U) [Mass/Vol] 100 mg/dL Abnormal Negative [facility] Comment on above: Performed By: #### L [id number] ####Software Designer: LESLEE TURKTYRONE ([id number])[facility] (SBHLAB)[address] [place] [address] [place] RBC (#/HPF) IN URINE SEDIMENT 3-5 Abnormal 0-2 [facility] Comment on above: Performed By: #### L [id number] ####Software Designer: LESLEE TURKTYRONE ([id number])[facility] [place] (SBHLAB)[address] Specific gravity (U) [Rel density] 1.030 Normal 1.005-1.030 [facility] Comment on above: Performed By: #### L [id number] ####Software Designer: LESLEE TURKTYRONE ([id number])[facility] [place] (SBHLAB)[address] SPERMATOZOA (#/HPF) IN URINE SEDIMENT Few Abnormal Negative [facility] Comment on above: Performed By: #### L [id number] ####Software Designer: LESLEE MCNEILLRAMON ([id number])[facility] [place] (SBHLAB)[address] SQUAMOUS EPITHELIAL CELLS (#/HPF) IN URINE SEDIMENT 0-2 Normal 3-5 [facility] Comment on above: Performed By: #### L [id number] ####Software Designer: LESLEE TURKTYRONE ([id number])[facility] [place] (SBHLAB)[address] UROBILINOGEN (MG/DL) IN URINE Normal Normal Normal (0-1) [facility] Comment on above: Performed By: #### L [id number] ####Software Designer: LESLEE HERNANDEZ ([id number])[facility] [place] (SBHLAB)[address] WBC (LEUKOCYTE) (#/HPF) IN URINE SEDIMENT 3-5 Normal 0-5 [facility] Comment on above: Performed By: #### L [id number] ####Software Designer: LESLEE HERNANDEZ ([id number])[facility] [place] (SBHLAB)[address] COMPREHENSIVE METABOLIC PANE Ming 07-03-2024 Albumin [Mass/Vol] 3.3 g/dL Low 3.5-5.0 [facility] Comment on above: Performed By: #### L [id number], [id number], LAB99, LAB17 ####Software Designer: LESLEE HERNANDEZ ([id number])[facility] [place] (SBHLAB)[address] ALP [Catalytic activity/Vol] 267 U/L High 40-150 [facility] Comment on above: Performed By: #### L [id number], [id number], LAB99, LAB17 ####Software Designer: LESLEE HERNANDEZ ([id number])[facility] [place] (SBHLAB)[address] [place] [address] [place] ALT [Catalytic activity/Vol] 159 U/L High <40 [facility] Comment on above: Performed By: #### L [id number], [id number], LAB99, LAB17 ####Software Designer: LESLEE HERNANDEZ ([id number])[facility] [place] (SBHLAB)[address] Anion gap [Moles/Vol] 12 mmol/L Normal 3-13 [facility] Comment on above: Performed By: #### L [id number], [id number], LAB99, LAB17 ####Software Designer: LESLEE HERNANDEZ ([id number])[facility] [place] (SBHLAB)[address] [place] [address] [place] AST [Catalytic activity/Vol] 56 U/L High <34 [facility] Comment on above: Performed By: #### L [id number], [id number], LAB99, LAB17 ####Software Designer: LESLEE HERNANDEZ ([id number])[facility] [place] (SBHLAB)[address] [place] [address] [place] Bilirubin [Mass/Vol] 2.4 mg/dL High <1.2 [facility] Comment on above: Performed By: #### L [id number], [id number], LAB99, LAB17 ####Software Designer: LESLEE HERNANDEZ ([id number])[facility] [place] (SBHLAB)[address] [place] [address] [place] Calcium [Mass/Vol] 9.0 mg/dL Normal 8.4-10.2 [facility] Comment on above: Performed By: #### L [id number], [id number], LAB99, LAB17 ####Software Designer: LESLEE HERNANDEZ ([id number])[facility] (SBHLAB)[address] Chloride [Moles/Vol] 110 mmol/L High 98-107 [facility] Comment on above: Performed By: #### L [id number], [id number], LAB99, LAB17 ####Software Designer: LESLEE HERNANDEZ ([id number])[facility] (SBHLAB)[address] CO2 [Moles/Vol] 20 mmol/L Low 22-29 [facility] Comment on above: Performed By: #### Pedro [id number], [id number], LAB99, LAB17 ####Software Designer: LESLEE HERNANDEZ ([id number])[facility] (SBHLAB)[address] Creatinine [Mass/Vol] 2.01 mg/dL High 0.72-1.25 [facility] Comment on above: Performed By: #### L [id number], KRE333, LAB99, LAB17 ####Software Designer: LESLEE HERNANDEZ ([id number])[facility] (SB[facility]AB)[address] [place] [address] [place] GLOMERULAR FILTRATION RATE ML/MIN/1.73 SQ M.PREDICTED 40.7 mL/min/1.73m*2 Low >60.0 [facility] Comment on above: Result Comment: Calc ulation based on the Chronic Kidney Disease Epidemiology Collaboration (CKD-EPI) equation refit without adjustment for race Performed By: #### L [id number], [id number], LAB99, LAB17 ####Software Designer: LESLEE HERNANDEZ ([id number])[facility] (SBHLAB)[address] [place] [address] [place] Glucose [Mass/Vol] 126 mg/dL High 74-100 [facility] Comment on above: Performed By: #### L [id number], [id number], LAB99, LAB17 ####Software Designer: LESLEE HERNANDEZ ([id number])[facility] (SBHLAB)[address] Potassium [Moles/Vol] 4.4 mmol/L Normal 3.5-5.1 [facility] Comment on above: Result Comment: [facility] potassium values may be up to 0.5 mmol/L lower than serum values. Performed By: #### L [id number], GIA750, LAB99, LAB17 ####Software Designer: LESLEE HERNANDEZ ([id number])[facility] ([facility])[address] Protein [Mass/Vol] 6.5 g/dL Normal 6.4-8.3 [facility] Comment on above: Performed By: #### L [id number], [id number], LAB99, LAB17 ####Software Designer: LESLEE HERNANDEZ ([id number])[facility] ([facility])[address] Sodium [Moles/Vol] 142 mmol/L Normal 136-145 [facility] Comment on above: Performed By: #### L [id number], [id number], LAB99, LAB17 ####Software Designer: LESLEE HERNANDEZ ([id number])[facility] ([facility])[address] Urea nitrogen [Mass/Vol] 35 mg/dL High 8-21 [facility] Comment on above: Performed By: #### L [id number], [id number], LAB99, LAB17 ####Software Designer: LESLEE HERNANDEZ ([id number])[facility] ([facility])[address] ABDOMEN PELVIS WO IV CONT RASTon 07-03-2024 CT ABDOMEN PELVIS WO IV CONTRAST Normal [facility] CT Abdomen and Pelvis WO con traston 07-03-2024 Patient Name: CARLO MEDINA : 1980 Exam Date/Time: 07/03/2024 09:40 Procedure: CT ABDOMEN [...] change of the visualized spine is noted. [facility] Sahne Galarza MD - 07/03/2024 Patient Name: CARLO MEDINA : 1980 Exam Date/Time: 07/03/2024 09:40 Procedure: CT ABDOMEN [...] Electronically Signed Date/Time: 07/03/2024 10:38 AM EST [facility] Radiology Study observation (narrative) [facility] Comprehensive metabolic 1998 panelon 07-03-2024 Albumin [Mass/Vol] 3.3 g/dL Low 3.5 - 5.0 g/dL [facility] ALP [Catalytic activity/Vol] 267 U/L High 40 - 150 U/L [facility] ALT [Catalytic activity/Vol] 159 U/L High NINF - 40 U/L [facility] Anion gap [Moles/Vol] 12 mmol/L 3 - 13 mmol/L [facility] AST [Catalytic activity/Vol] 56 U/L High NINF - 34 U/L [facility] Bilirubin [Mass/Vol] 2.4 mg/dL High NINF - 1.2 mg/dL [facility] Calcium [Mass/Vol] 9 mg/dL 8.4 - 10. 2 mg/dL [facility] Chloride [Moles/Vol] 110 mmol/L High 98 - 10 7 mmol/L [facility] CO2 [Moles/Vol] 20 mmol/L Low 22 - 29 mmol/L [facility] Creatinine [Mass/Vol] 2.01 mg/dL High 0.72 - 1.25 mg/dL [facility] GFR/1.73 sq M.predicted (S/P/Bld) [Vol rate/Area] 40.7 mL/min Low - PINF [facility] Comment on above: Calculation based on the Chronic Kidney Disease Epidemiology Collaboration (CKD-EPI) equation refit without adjustment for race Glucose [Mass/Vol] 126 mg/dL High 74 - 100 mg/dL [facility] Interpretation and review of laboratory results Abnormal [facility] Potassium [Moles/Vol] 4.4 mmol/L 3.5 - 5.1 mmol/L [facility] Comment on above: Plasma potassium heidi ues may be up to 0.5 mmol/L lower than serum values. Protein [Mass/Vol] 6.5 g/dL 6.4 - 8.3 g/dL [facility] Sodium [Moles/Vol] 142 mmol/L 136 - 145 mmol/L [facility] Urea nitrogen [Mass/Vol] 35 mg/dL High 8 - 21 mg/dL [facility] ECG 12-LEADon 07-03-2024 ECG 12-LEAD Normal [facility] ED Nursing Noteon 07-03-2024 ED Nursing Note [facility] arrived to transport pt to [facility] . Pt ambulated to stretcher without difficulty. Pt A&O, calm, and cooperative, no signs of distress noted. VS stable. Resp even, non labored. Normal [facility] ED Nursing Note Attempted to call report to T1 at [facility] no answer. Normal [facility] ED Nursing Note Pt given bedside table to food tray Normal [facility] ED Nursing Note Pt given urinal aske d to void if able. Pt states he does not have to urinate at this time. Normal [facility] ED Nursing Note Patient refusing to let this RN attempt IV without ultra sound. Patient states I dont want you to poke me without it Normal [facility] ED Nursing Note This RN attempted IV stick multiple times and was unsuccessful. Charge nurse notified. Normal [facility] ED Nursing Note Patient requesting t o be placed on oxygen. Patients oxygen saturation was 98% on room air at time of triage. Patient is now 95% on room air. Patient advised that he does not require oxygen at this time. Normal [facility] ED Nursing Note Patient reports he has a history of heart disease and stage 3 kidney disease. Patient reports shob started last pm. 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 Normal [facility] ED Provider Noteon ED Provider Note Normal [facility] HIGH SENSITIVITY TROPONIN, S ERIAL BASELINEon 07-03-2024 TROPONIN HIGH SENSITIVITY BASELINE 39 ng/L High <=35 [facility] Comment on above: Performed By: #### L [id number], [id number] ####Software Designer: LESLEE HERNANDEZ ([id number])[facility] ([facility])[address] [place] [address] HIGH SENSITIVITY TROPONIN, S ERIAL, SECOND TESTon 07-03-2024 TROPONIN HS DELTA, BASELINE TO SECOND -6 ng/L Normal <=2 [facility] Comment on above: Result Comment: This specimen [...] further clinical guidance. Performed By: #### L [id number] ####Software Designer: LESLEE HERNANDEZ ([id number])[facility] ([facility])[address] [place] [address] TROPONIN HS, SERIAL REFLEX, TEST TWO 33 ng/L Normal <=35 [facility] Comment on above: Performed By: #### L [id number] ####Software Designer: LESLEE HERNANDEZ ([id number])[facility] ([facility])[address] LACTIC ACID WITH REFLEXon Lactate [Moles/Vol] 2.5 mmol/L High 0.5-2.2 [facility] Comment on above: Performed By: #### L [id number] ####Software Designer: NICOLE BOWERS ([id number])[facility] ([facility])[address] [place] [address] Lactate [Moles/Vol] 2.2 mmol/L Normal 0.5-2.2 [facility] Comment on above: Performed By: #### L [id number] ####Software Designer: LESLEE HERNANDEZ ([id number])[facility] ([facility])[address] LIPASEon 07-03-2024 Lipase [Catalytic activity/Vol] 18 U/L Normal <55 [facility] Comment on above: Performed By: #### L [id number], [id number], [id number], LAB17 ####Software Designer: LESLEE HERNANDEZ ([id number])[facility] ([facility])[address] [place] [address] Laboratory - Chemistry and C hemistry - challengeon 07-03-2024 Lactate [Moles/Vol] 2.5 mmol/L High 0.5 - 2. 2 mmol/L [facility] Lactate [Moles/Vol] 2.2 mmol/L 0.5 - 2. 2 mmol/L [facility] Lipase [Catalytic activity/Vol] 18 U/L NINF - 55 U/L [facility] Laboratory - Chemistry and C hemistry - challengeOrdered By: Zoie Stein on 07-03-2024 Base excess Calc (BldV) [Moles/Vol] -6.8000 mmol/L Low -3.0 - 3.0 mmol/L [facility] CO2 (BldV) [Partial pressure] 36.1 mm[Hg] Low [facility] CO2 [Moles/Vol] 19.5 mmol/L Low 23.0 - 30.0 mmol/L [facility] HCO3 (Bld) [Moles/Vol] 18.4 mmol/L Low 21.0 - 30.0 mmol/L [facility] Oxygen (BldV) [Partial pressure] 39.3 mm[Hg] mm Hg [facility] pH (BldV) 7.325 [pH] 7.320 - 7.420 [facility] Laboratory - Hematology and Cell countsOrdered By: Zoie Stein on 07-03-2024 Hemoglobin (Bld) [Mass/Vol] 15.2 g/dL Screen only [facility] Lipase [Catalytic activity/V ol]on 07-03-2024 Interpretation and review of laboratory results Normal [facility] NT PRO BNPon 07-03-2024 Natriuretic peptide B (Bld) [Mass/Vol] 82172 pg/mL High <125 [facility] Comment on above: Performed By: #### L [id number], [id number], [id number], LAB17 ####Software Designer: LESLEE HERNANDEZ ([id number])[facility] ([facility] [place] [address] Natriuretic peptide B [Mass/ Vol]on 07-03-2024 Interpretation and review of laboratory results Abnormal [facility] Natriuretic peptide B (Bld) [Mass/Vol] 75729 pg/mL High NINF - 125 pg/mL [facility] No Panel Informationon 07-03 Interpretation and review of laboratory results Abnormal [facility] Incomplete analysis due to missing data in [...] On 07-03-2024 20:41:11 EST by Cornelio Joseph [facility] Interpretation and review of laboratory results Normal [facility] Troponin HS Delta, Baseline to Second -6 ng/L NINF - 2 ng/L [facility] Comment on above: This specimen was co [...] Second 33 ng/L NINF - 35 ng/L [facility] [employer] Interpretation and review of laboratory results Abnormal [facility] [employer] Troponin HS, Serial Baseline 39 ng/L High NINF - 35 ng/L [facility] [employer] [facility] [employer] No Panel InformationOrdered By: Cornelio Joseph on 07-03-2024 P Cylinder 60 degrees shoutr Work Phone: DE Interval 153 ms [employer] Work Phone: QRS Cylinder -24 degrees [employer] Work Phone: QRSD Interval 97 ms [facility] Work Phone: QT Interval 350 ms [employer] Work Phone: QTC Interval 480 ms [employer] Work Phone: T Wave Cylinder 89 degrees [employer] Work Phone: shoutr Work Phone: No Panel InformationOrdered By: Zoie Stein on 07-03-2024 Interpretation and review of laboratory results Abnormal [facility] [employer] Source Of Oxygen Room Air [facility] Assessment of oxygenation is best done with an arterial blood gas determination. Reference ranges for pO2, bicarbonate, and base excess are for mixed venous blood. Specimens drawn from a peripheral vein will often have higher values. [facility] UREA NITROGEN, URINEon 07-03 CREATININE, URINE 115.3 mg/dL Normal 63.0-166.0 [facility] Comment on above: Performed By: #### L [id number] ####Software Designer: NICOLE BOWERS ([id number])[facility] ([facility])[address] [place] [address] UREA (BUN), URINE, FRACTIONAL EXCRETION 30.9 Normal [facility] Comment on above: Result Comment: Frac tional excretion of urea under 35% is consistent with a prerenal cause. Performed By: #### L [id number] ####Software Designer: NICOLE BOWERS ([id number])[facility] ([facility])[address] [place] [address] UREA (BUN), URINE, TUBULAR REABSORPTION 0.7 Normal [facility] Comment on above: Performed By: #### L [id number] ####Software Designer: NICOLE BOWERS ([id number])[facility] ([facility])[address] [place] [address] UREA NITROGEN, URINE 620 mg/dL Normal [facility] Comment on above: Performed By: #### L [id number] ####Software Designer: NICOLE BOWERS ([id number])[facility] ([facility])[address] [place] [address] US ABDOMEN LIMITEDon 025 US ABDOMEN LIMITED Normal [facility] US Abdomen limitedon 025 1. Positive sonographic [...] MD Electronically Signed Date/Time: 07/03/2024 12:18 PM [facility] Patient Name: CARLO MEDINA : 1980 [...] adjacent free fluid is present. Per the isotope technologist, the sonographic Melendez's sign was positive. Bile ducts: No intrahepatic and extrahepatic biliary dilatation Common bile duct: 2 mm Right kidney: Normal size measuring 9.6 cm. Normal parenchymal echogenicity without solid mass or hydronephrosis. Ascites: Small amount of free fluid surrounding the liver and gallbladder [facility] Shane Galarza MD - 07/03/2024 [facility] Name: [facility] : 1980 [id number] Exam Date/Time: 07/03/2024 12:06 Procedure: US ABDOMEN [...] adjacent free fluid is present. Per the isotope technologist, the sonographic Melendez's sign was positive. [...] Electronically Signed Date/Time: 07/03/2024 12:18 PM EST [facility] Radiology Study observation (narrative) [facility] Urinalysis complete panel (U )Ordered By: Helder Blackwell on 07-03-2024 Amorphous Crystals, Urine Few Abnormal Negative /HPF [facility] Bacteria LM.HPF (Urine sed) [#/Area] Negative Negative /HPF [facility] Bilirubin Ql (U) Negative Negative mg/dL [facility] Clarity (U) Turbid Abnormal Clear [facility] Color (U) Yellow Lt. Yellow [facility] Epithelial cells.squamous LM.HPF (Urine sed) [#/Area] 0-2 [facility] h Glucose Ql (U) Normal Normal (<70) mg/dL [facility] Hemoglobin Ql (U) Negative Negative mg/dL [facility] Hyaline casts Auto (Urine sed) [#/Area] 3-5 Abnormal Negative /[facility] Interpretation and review of laboratory results Abnormal [facility] Ketones (U) [Mass/Vol] Negative Negat dai mg/dL [facility] Leukocyte esterase Test strip Ql (U) Negative Negative Nicky/uL [facility] Mucus LM.HPF (Urine sed) [#/Area] Few Negative /LPF [facility] Nitrite Ql (U) Negative Negative [facility] pH (U) 5.5 [pH] 5.0 - 8.0 pH [facility] Protein (U) [Mass/Vol] 100 mg/dL Abnormal Negative [facility] RBC LM.HPF (Urine sed) [#/Area] 3-5 Abnormal [facility] Specific gravity (U) [Rel density] 1.03 1.005 - 1.030 [facility] Spermatozoa LM.HPF (Urine sed) [#/Area] Few Abnormal Negative /HPF [facility] Urobilinogen (U) [Mass/Vol] Normal Normal (0-1) mg/dL [facility] WBC LM.HPF (Urine sed) [#/Area] 3-5 [facility] Vital signsOrdered By: Nadira Joseph on 07-03-2024 Heart rate 113 /min bpm [facility] Work Phone: Vital signsOrdered By: Zoie Stein on 07-03-2024 Oxygen saturation in Venous blood 60.4 % [facility] XR Chest Single viewon 07-03 FINDINGS AND [...] MD Electronically Signed Date/Time: 07/03/2024 10:08 AM [facility] Patient Name: CARLO MEDINA : 1980 Exam Date/Time: 07/03/2024 09:50 Procedure: XR CHEST 1 VIEW Ordering Provider: DOVER CONNOR Reason For Exam: sob hx chf CHEST CLINICAL INDICATION: Dyspnea TECHNIQUE: AP portable chest COMPARISON: 06/19/2024 [facility] Shane Galarza MD - 07/03/2024 Patient [...] Electronically Signed Date/Time: 07/03/2024 10:08 AM EST [facility] [employer] Radiology Study observation (narrative) [employer] [facility] [employer] XR Chest Single viewOrdered By: Shane Galarza on 07-03-2024 [employer] [facility] [employer] Work Phone: 29on 07-01-2024 29 Addended by: SEPIDEH TOWNSEND on: 08/20/2024 04:37 PM Modules accepted: Orders Normal [facility] No Panel Informationon 07-01 Sinus Tachycardia -Left atrial enlargement. Voltage criteria for LVH (R(V6) exceeds 2.26 mV). -Nonspecific T-abnormality. ABNORMAL [facility] Progress Noteon 07-01-2024 Progress Note Normal [facility] 36on 06-24-2024 36 Normal [facility] 36on 06-22-2024 36 Normal [facility] [id number] 06-21-2024 [id number] [facility] Nursing Noteon 06-21-2024 Nursing Note Gave patient discharge instructions. Patient verbalized understanding. Discussed the importance of taking the medications as prescribed. Importance of following up with Dr. Burnette and Dr Mccullough. IV discontinued. Meds to beds delivered scripts. Normal [facility] Nursing Note Notified Dr. Shayla Marcano APRN from cardiology regarding 20 beat run of [place] through message. ] Normal [facility] Progress Noteon 06-21-2024 Progress Note Normal [facility] Progress Note Normal [facility] Progress Note Normal [facility] Progress Note Normal [facility] 30on 06-20-2024 30 Normal [facility] [id number] 06-20-2024 [id number] [facility] BASIC METABOLIC PANELon 05-31 Anion gap [Moles/Vol] 9 mmol/L Normal 3-13 [facility] Comment on above: Performed By: #### L [id number], [id number], LAB15 ####Software Designer: LESLEE HERNANDEZ ([id number])[facility] ([address] Calcium [Mass/Vol] 7.8 mg/dL Low 8.4-10.2 [facility] Comment on above: Performed By: #### L AB103, [id number], LAB15 ####Software Designer: LESLEE HERNANDEZ ([id number])[facility] ([facility])[address] [place] [address] [place] Chloride [Moles/Vol] 104 mmol/L Normal 98-107 [facility] Comment on above: Performed By: #### L AB103, [id number], LAB15 ####Software Designer: LESLEE HERNANDEZ ([id number])[facility] [place] ([facility])[address] [place] [address] [place] CO2 [Moles/Vol] 22 mmol/L Normal 22-29 [facility] Comment on above: Performed By: #### L AB103, [id number], LAB15 ####Software Designer: LESLEE HERNANDEZ ([id number])[facility]ENTER[facility]on [facility] ([facility])[address] Creatinine [Mass/Vol] 1.55 mg/dL High 0.72-1.25 [facility] Comment on above: Performed By: #### L AB103, [id number], LAB15 ####Software Designer: LESLEE HERNANDEZ ([id number])[facility]ENTER[facility]on [facility] ([facility])[address] GLOMERULAR FILTRATION RATE ML/MIN/1.73 SQ M.PREDICTED 55.6 mL/min/1.73m*2 Low >60.0 [facility] Comment on above: Result Comment: Calc ulation based on the Chronic Kidney Disease Epidemiology Collaboration (CKD-EPI) equation refit without adjustment for race Performed By: #### L AB103, [id number], LAB15 ####Software Designer: LESLEE HERNANDEZ ([id number])[facility]ENTER[facility] [place] ([facility])[address] [place] [address] [place] Glucose [Mass/Vol] 171 mg/dL High 74-100 [facility] Comment on above: Performed By: #### L AB103, [id number], LAB15 ####Software Designer: LESLEE HERNANDEZ ([id number])[facility]ENTERKeyon [facility] ([facility])[address] [place] [address] [place] Potassium [Moles/Vol] 3.8 mmol/L Normal 3.5-5.1 [facility] Comment on above: Result Comment: [facility] potassium values may be up to 0.5 mmol/L lower than serum values. Performed By: #### L AB103, [id number], LAB15 ####Software Designer: LESLEE HERNANDEZ ([id number])[facility] ([facility])[address] Sodium [Moles/Vol] 135 mmol/L Low 136-145 [facility] Comment on above: Performed By: #### L AB103, [id number], LAB15 ####Software Designer: LESLEE HERNANDEZ ([id number])[facility] ([facility])[address] Urea nitrogen [Mass/Vol] 22 mg/dL High 8-21 [facility] Comment on above: Performed By: #### L AB103, [id number], LAB15 ####Software Designer: LESLEE HERNANDEZ ([id number])[facility] ([facility])[address] Basic metabolic 1998 panelon 06-20-2024 Anion gap [Moles/Vol] 9 mmol/L 3 - 13 mmol/L [facility] Calcium [Mass/Vol] 7.8 mg/dL Low 8.4 - 10. 2 mg/dL [facility] Chloride [Moles/Vol] 104 mmol/L 98 - 10 7 mmol/L [facility] CO2 [Moles/Vol] 22 mmol/L 22 - 29 mmol/L [facility] Creatinine [Mass/Vol] 1.55 mg/dL High 0.72 - 1.25 mg/dL [facility] GFR/1.73 sq M.predicted (S/P/Bld) [Vol rate/Area] 55.6 mL/min Low - PINF [facility] Comment on above: Calculation based on the Chronic Kidney Disease Epidemiology Collaboration (CKD-EPI) equation refit without adjustment for race Glucose [Mass/Vol] 171 mg/dL High 74 - 100 mg/dL [facility] Interpretation and review of laboratory results Abnormal [facility] Potassium [Moles/Vol] 3.8 mmol/L 3.5 - 5.1 mmol/L [facility] Comment on above: Plasma potassium heidi ues may be up to 0.5 mmol/L lower than serum values. Sodium [Moles/Vol] 135 mmol/L Low 136 - 145 mmol/L [facility] [employer] Urea nitrogen [Mass/Vol] 22 mg/dL High 8 - 21 mg/dL [facility] CBC W Auto Differential pane l (Bld)on 06-20-2024 Basophils (Bld) [#/Vol] 0 10*3/uL 0.0 - 0.2 10*3/uL [facility] [employer] Basophils/100 WBC (Bld) 0.2 % 0.0 - 2.0 % [facility] Eosinophils (Bld) [#/Vol] 0.1 10*3/uL 0.0 - 0.5 10*3/uL [facility] [employer] Eosinophils/100 WBC (Bld) 1 % 0.0 - 6.0 % [facility] Erythrocyte distribution width (RBC) [Ratio] 13.6 % 11.5 - 15.0 % [facility] Hematocrit (Bld) [Volume fraction] 41.9 % 40.0 - 52.0 % [facility] Hemoglobin (Bld) [Mass/Vol] 13.7 g/dL 13.0 - 18.0 g/dL [facility] [employer] Immature granulocytes (Bld) [#/Vol] 0 10*3/uL NINF - 0.1 10*3/uL [facility] [employer] Immature granulocytes/100 WBC (Bld) 0.2 % 0.0 - 2.0 % [facility] Interpretation and review of laboratory results Abnormal [facility] Lymphocytes (Bld) [#/Vol] 1.6 10*3/uL 1.0 - 4.3 10*3/uL [facility] [employer] Lymphocytes/100 WBC (Bld) 27.7 % 15.0 - 45.0 % [facility] MCH (RBC) [Entitic mass] 32.4 pg 26.0 - 34.0 pg [facility] MCHC (RBC) [Mass/Vol] 32.7 % 30.5 - 36.0 % [facility] MCV (RBC) [Entitic vol] 99.1 fL High 77.0 - 99.0 fL [facility] Monocytes (Bld) [#/Vol] 0.4 10*3/uL 0.0 - 0.9 10*3/uL [facility] Monocytes/100 WBC (Bld) 6.8 % 5.0 - 13.0 % [facility] Neutrophils (Bld) [#/Vol] 3.8 10*3/uL 1.8 - 7.5 10*3/uL [facility] Neutrophils/100 WBC (Bld) 64.1 % 38.0 - 82.0 % [facility] Nucleated RBC/100 WBC (Bld) [Ratio] 0 % [facility] Platelet mean volume (Bld) [Entitic vol] 10.5 fL 9.0 - 12.7 fL [facility] Platelets (Bld) [#/Vol] 202 10*3/uL 140 - 440 10*3/uL [facility] RBC (Bld) [#/Vol] 4.23 10*6/uL Low 4.40 - 5.9 0 10*6/uL [facility] WBC (Bld) [#/Vol] 5.9 10*3/uL 3.6 - 10.7 10*3/uL [facility] CBC WITH AUTO DIFFERENTIALon 06-20-2024 Basophils (Bld) [#/Vol] 0.0 10*3/uL Normal 0.0-0.2 [facility] Comment on above: Performed By: #### L [id number] ####Software Designer: LESLEE HERNANDEZ ([id number])[facility] ([facility])[address] [place] [address] Basophils/100 WBC (Bld) 0.2 % Normal 0.0-2.0 [facility] Comment on above: Performed By: #### L [id number] ####Software Designer: LESLEE HERNANDEZ ([id number])[facility] (SB[facility])[address] Eosinophils (Bld) [#/Vol] 0.1 10*3/uL Normal 0.0-0.5 [facility] Comment on above: Performed By: #### L [id number] ####Software Designer: LESLEE HERNANDEZ ([id number])[facility] ([facility])[address] [place] [address] [place] Eosinophils/100 WBC (Bld) 1.0 % Normal 0.0-6.0 [facility] Comment on above: Performed By: #### L [id number] ####Software Designer: LESLEE HERNANDEZ ([id number])[facility] (SBAB)[address] Erythrocyte distribution width (RBC) [Ratio] 13.6 % Normal 11.5-15.0 [facility] Comment on above: Performed By: #### L [id number] ####Software Designer: LESLEE HERNANDEZ ([id number])[facility] ([facility])[address] [place] [address] Hematocrit (Bld) [Volume fraction] 41.9 % Normal 40.0-52.0 [facility] Comment on above: Performed By: #### L [id number] ####Software Designer: LESLEE TURKTYRONE ([id number])[facility] ([facility])[address] [place] [address] Hemoglobin (Bld) [Mass/Vol] 13.7 g/dL Normal 13.0-18.0 [facility] Comment on above: Performed By: #### L [id number] ####Software Designer: LESLEE HERNANDEZ ([id number])[facility] ([facility])[address] [place] [address] IMMATURE GRANS % 0.2 % Normal 0.0-2.0 [facility] Comment on above: Performed By: #### L [id number] ####Software Designer: LESLEE HERNANDEZ ([id number])[facility]A [facility] ([facility])[address] IMMATURE GRANS ABSOLUTE 0.0 10*3/uL Normal <0.1 [facility] Comment on above: Performed By: #### L [id number] ####Software Designer: LESLEE HERNANDEZ ([id number])[facility] (SBAB)[address] Lymphocytes (Bld) [#/Vol] 1.6 10*3/uL Normal 1.0-4.3 [facility] Comment on above: Performed By: #### L [id number] ####Software Designer: LESLEE TURKTYRONE ([id number])[facility] (SB[facility])[address] Lymphocytes/100 WBC (Bld) 27.7 % Normal 15.0-45.0 [facility] Comment on above: Performed By: #### L [id number] ####Software Designer: LESLEE TURKTYRONE ([id number])[facility] [place] (SBHLAB)[address] MCH (RBC) [Entitic mass] 32.4 pg Normal 26.0-34.0 [facility] Comment on above: Performed By: #### L [id number] ####Software Designer: LESLEE MARY ([id number])[facility] ([facility])[address] MCHC 32.7 % Normal 30.5-36.0 [facility] Comment on above: Performed By: #### L [id number] ####Software Designer: LESLEE HERNANDEZ ([id number])[facility] CENTERKeyon [facility] (SB[facility]AB)[address] MCV (RBC) [Entitic vol] 99.1 fL High 77.0-99.0 [facility] Comment on above: Performed By: #### L [id number] ####Software Designer: LESLEE HERNANDEZ ([id number])[facility] (SBHLAB)[address] Monocytes (Bld) [#/Vol] 0.4 10*3/uL Normal 0.0-0.9 [facility] Comment on above: Performed By: #### L [id number] ####Software Designer: LESLEE HERNANDEZ ([id number])[facility] (SBHLAB)[address] Monocytes/100 WBC (Bld) 6.8 % Normal 5.0-13.0 [facility] Comment on above: Performed By: #### L [id number] ####Software Designer: LESLEE HERNANDEZ ([id number])[facility] [place] (SBHLAB)[address] NEUTROPHILS ABSOLUTE 3.8 10*3/uL Normal 1.8-7.5 [facility] Comment on above: Performed By: #### L [id number] ####Software Designer: LESLEE HERNANDEZ ([id number])[facility] [place] (SBHLAB)[address] Neutrophils/100 WBC (Bld) 64.1 % Normal 38.0-82.0 [facility] Comment on above: Performed By: #### L [id number] ####Software Designer: LESLEE HERNANDEZ ([id number])[facility] ([facility] NRBC 0.0 /100 WBCs Normal 0.0-2.0 [facility] Comment on above: Performed By: #### L [id number] ####Software Designer: LESLEE HERNANDEZ ([id number])[facility] [place] (SBHLAB)[address] Platelet mean volume (Bld) [Entitic vol] 10.5 fL Normal 9.0-12.7 [facility] Comment on above: Performed By: #### L [id number] ####Software Designer: LESLEE HERNANDEZ ([id number])[facility] [place] (SBHLAB)[address] Platelets (Bld) [#/Vol] 202 10*3/uL Normal 140-440 [facility] Comment on above: Performed By: #### L [id number] ####Software Designer: LESLEE HERNANDEZ ([id number])[facility] [place] (SBHLAB)[address] RBC (Bld) [#/Vol] 4.23 10*6/uL Low 4.40-5.90 [facility] Comment on above: Performed By: #### L [id number] ####Software Designer: LESLEE HERNANDEZ ([id number])[facility] ([facility])[address] WBC (Bld) [#/Vol] 5.9 10*3/uL Normal 3.6-10.7 [facility] Comment on above: Performed By: #### L [id number] ####Software Designer: LESLEE HERNANDEZ ([id number])[facility] ([facility])[address] Consulton 06-20-2024 Consult Normal [facility] Laboratory - Chemistry and C hemistry - challengeon 06-20-2024 Magnesium [Mass/Vol] 2.1 mg/dL 1.6 - 2 .6 mg/dL [facility] MAGNESIUMon 06-20-2024 Magnesium [Mass/Vol] 2.1 mg/dL Normal 1.6-2.6 [facility] Comment on above: Result Comment: ALEJANDRO Aleman COMMENTS:Higher values can be expected in females during menses. Performed By: #### L AB103, [id number], LAB15 ####Software Designer: LESLEE HERNANDEZ ([id number])[facility] ([facility])[address] [place] [address] Magnesium [Mass/Vol]on 06-20 Interpretation and review of laboratory results Normal [facility] Higher values can be expected in females during menses. [facility] NT PRO BNPon 06-20-2024 Natriuretic peptide B (Bld) [Mass/Vol] 00699 pg/mL High <125 [facility] Comment on above: Performed By: #### L AB103, [id number], LAB15 ####Software Designer: LESLEE HERNANDEZ ([id number])[facility] ([facility])[address] [place] [address] Natriuretic peptide B [Mass/ Vol]on 06-20-2024 Interpretation and review of laboratory results Abnormal [facility] Natriuretic peptide B (Bld) [Mass/Vol] 31503 pg/mL High NINF - 125 pg/mL [facility] No Panel Informationon 06-20 [facility] Progress Noteon 06-20-2024 [facility] Progress [facility] 30on 06-19-2024 30 Normal [facility] Progress Noteon 06-19-2024 Progress Note [facility] Progress [facility] Progress [facility] XR Chest 2 Viewson Diffuse enlargement of the cardiac silhouette. Persistent but interval decrease in mild vascular congestion. Report Dictated on Electronically Signed By: Joel Hi MD Electronically Signed Date/Time: 06/19/2024 12:08 PM EST [facility] Patient Name: CARLO MEDINA : 1980 Exam [...] the thoracic spine. No acute osseous findings. [facility] Joel Hi MD - 06/19/2024 Patient Name: CARLO MEDINA : 1980 Exam [...] Electronically Signed Date/Time: 06/19/2024 12:08 PM EST [facility] Radiology Study observation (narrative) [facility] XR Chest 2 ViewsOrdered By: Joel Hi on 06-19-2024 [facility] Work Phone: BASIC METABOLIC PANELon 05-31 Anion gap [Moles/Vol] 9 mmol/L Normal 3-13 [facility] Comment on above: Performed By: #### L AB106, [id number], [id number], LAB15 ####Software Designer: LESLEE HERNANDEZ ([id number])[facility] (SBAB)[address] Calcium [Mass/Vol] 7.9 mg/dL Low 8.4-10.2 [facility] Comment on above: Performed By: #### L AB106, [id number], [id number], LAB15 ####Software Designer: LESLEE HERNANDEZ ([id number])[facility] (SBHLAB)[address] [place] [address] [place] Chloride [Moles/Vol] 102 mmol/L Normal 98-107 [facility] Comment on above: Performed By: #### L AB106, [id number], [id number], LAB15 ####Software Designer: LESLEE HERNANDEZ ([id number])[facility] (SBHLAB)[address] [place] [address] [place] CO2 [Moles/Vol] 25 mmol/L Normal 22-29 [facility] Comment on above: Performed By: #### L AB106, [id number], [id number], LAB15 ####Software Designer: LESLEE HERNANDEZ ([id number])[facility]ENTER[facility] (SBHLAB)[address] Creatinine [Mass/Vol] 1.91 mg/dL High 0.72-1.25 [facility] Comment on above: Performed By: #### L AB106, [id number], [id number], LAB15 ####Software Designer: LESLEE TORRESCER ([id number])[facility] (SBHLAB)[address] GLOMERULAR FILTRATION RATE ML/MIN/1.73 SQ M.PREDICTED 43.2 mL/min/1.73m*2 Low >60.0 [facility] Comment on above: Result Comment: Calc ulation based on the Chronic Kidney Disease Epidemiology Collaboration (CKD-EPI) equation refit without adjustment for race Performed By: #### L AB106, [id number], [id number], LAB15 ####Software Designer: LESLEE TURKTYRONE ([id number])[facility] ([facility])[address] Glucose [Mass/Vol] 173 mg/dL High 74-100 [facility] Comment on above: Performed By: #### L AB106, [id number], [id number], LAB15 ####Software Designer: LESLEE TURKTYRONE ([id number])[facility] (HLAB)[address] [place] [address] [place] Potassium [Moles/Vol] 4.0 mmol/L Normal 3.5-5.1 [facility] Comment on above: Result Comment: [facility] potassium values may be up to 0.5 mmol/L lower than serum values. Performed By: #### L AB106, [id number], [id number], LAB15 ####Software Designer: LESLEE HERNANDEZ ([id number])[facility] (SBHLAB)[address] [place] [address] [place] Sodium [Moles/Vol] 136 mmol/L Normal 136-145 [facility] Comment on above: Performed By: #### L AB106, [id number], [id number], LAB15 ####Software Designer: LESLEE HERNANDEZ ([id number])[facility] (SBHLAB)[address] Urea nitrogen [Mass/Vol] 30 mg/dL High 8-21 [facility] Comment on above: Performed By: #### L AB106, [id number], [id number], LAB15 ####Software Designer: LESLEE HERNANDEZ ([id number])[facility] (SBHLAB)[address] Basic metabolic 1998 panelon 06-18-2024 Anion gap [Moles/Vol] 9 mmol/L 3 - 13 mmol/L [facility] [employer] Calcium [Mass/Vol] 7.9 mg/dL Low 8.4 - 10. 2 mg/dL [facility] Chloride [Moles/Vol] 102 mmol/L 98 - 10 7 mmol/L [facility] [employer] CO2 [Moles/Vol] 25 mmol/L 22 - 29 mmol/L [facility] [employer] Creatinine [Mass/Vol] 1.91 mg/dL High 0.72 - 1.25 mg/dL [facility] GFR/1.73 sq M.predicted (S/P/Bld) [Vol rate/Area] 43.2 mL/min Low - PINF [facility] Comment on above: Calculation based on the Chronic Kidney Disease Epidemiology Collaboration (CKD-EPI) equation refit without adjustment for race Glucose [Mass/Vol] 173 mg/dL High 74 - 100 mg/dL [facility] Interpretation and review of laboratory results Abnormal [facility] Potassium [Moles/Vol] 4 mmol/L 3.5 - 5.1 mmol/L [facility] Comment on above: Plasma potassium heidi ues may be up to 0.5 mmol/L lower than serum values. Sodium [Moles/Vol] 136 mmol/L 136 - 145 mmol/L [facility] Urea nitrogen [Mass/Vol] 30 mg/dL High 8 - 21 mg/dL [facility] CBC W Auto Differential pane l (Bld)on 06-18-2024 Basophils (Bld) [#/Vol] 0 10*3/uL 0.0 - 0.2 10*3/uL [facility] Basophils/100 WBC (Bld) 0.2 % 0.0 - 2.0 % [facility] Eosinophils (Bld) [#/Vol] 0 10*3/uL 0.0 - 0.5 10*3/uL [facility] Health Eosinophils/100 WBC (Bld) 0.6 % 0.0 - 6.0 % [facility] Erythrocyte distribution width (RBC) [Ratio] 13.9 % 11.5 - 15.0 % [facility] Hematocrit (Bld) [Volume fraction] 46.5 % 40.0 - 52.0 % [facility] Hemoglobin (Bld) [Mass/Vol] 15 g/dL 13.0 - 18.0 g/dL [facility] Immature granulocytes (Bld) [#/Vol] 0 10*3/uL NINF - 0.1 10*3/uL [facility] Immature granulocytes/100 WBC (Bld) 0.2 % 0.0 - 2.0 % [facility] Interpretation and review of laboratory results Abnormal [facility] Lymphocytes (Bld) [#/Vol] 1.8 10*3/uL 1.0 - 4.3 10*3/uL [facility] Lymphocytes/100 WBC (Bld) 34.9 % 15.0 - 45.0 % [facility] MCH (RBC) [Entitic mass] 32.2 pg 26.0 - 34.0 pg [facility] MCHC (RBC) [Mass/Vol] 32.3 % 30.5 - 36.0 % [facility] MCV (RBC) [Entitic vol] 99.8 fL High 77.0 - 99.0 fL [facility] Monocytes (Bld) [#/Vol] 0.3 10*3/uL 0.0 - 0.9 10*3/uL [facility] Monocytes/100 WBC (Bld) 6.4 % 5.0 - 13.0 % [facility] Neutrophils (Bld) [#/Vol] 2.9 10*3/uL 1.8 - 7.5 10*3/uL [facility] Health Neutrophils/100 WBC (Bld) 57.7 % 38.0 - 82.0 % [facility] Nucleated RBC/100 WBC (Bld) [Ratio] 0 % [facility] Platelet mean volume (Bld) [Entitic vol] 10.6 fL 9.0 - 12.7 fL [facility] Platelets (Bld) [#/Vol] 220 10*3/uL 140 - 440 10*3/uL [facility] RBC (Bld) [#/Vol] 4.66 10*6/uL 4.40 - 5.9 0 10*6/uL [facility] WBC (Bld) [#/Vol] 5 10*3/uL 3.6 - 10.7 10*3/uL [facility] CBC WITH AUTO DIFFERENTIALon 06-18-2024 Basophils (Bld) [#/Vol] 0.0 10*3/uL Normal 0.0-0.2 [facility] Comment on above: Performed By: #### L [id number] ####Software Designer: LESLEE HERNANDEZ ([id number])[facility] [place] (SBAB)[address] [place] [address] Basophils/100 WBC (Bld) 0.2 % Normal 0.0-2.0 [facility] Comment on above: Performed By: #### L [id number] ####Software Designer: LESLEE HERNANDEZ ([id number])[facility] [place] (SBAB)[address] [place] [address] Eosinophils (Bld) [#/Vol] 0.0 10*3/uL Normal 0.0-0.5 [facility] Comment on above: Performed By: #### L [id number] ####Software Designer: LESLEE HERNANDEZ ([id number])[facility] [place] (SBHLAB)[address] [place] [address] Eosinophils/100 WBC (Bld) 0.6 % Normal 0.0-6.0 [facility] Comment on above: Performed By: #### L [id number] ####Software Designer: LESLEE HERNANDEZ ([id number])[facility] [place] (SBAB)[address] [place] [address] Erythrocyte distribution width (RBC) [Ratio] 13.9 % Normal 11.5-15.0 [facility] Comment on above: Performed By: #### L [id number] ####Software Designer: LESLEE HERNANDEZ ([id number])[facility] [place] (SBHLAB)[address] Hematocrit (Bld) [Volume fraction] 46.5 % Normal 40.0-52.0 [facility] Comment on above: Performed By: #### L [id number] ####Software Designer: LESLEE HERNANDEZ ([id number])[facility] (SB[facility])[address] Hemoglobin (Bld) [Mass/Vol] 15.0 g/dL Normal 13.0-18.0 [facility] Comment on above: Performed By: #### L [id number] ####Software Designer: LESLEE HERNANDEZ ([id number])[facility] (SBAB[facility] [place] [address] IMMATURE GRANS % 0.2 % Normal 0.0-2.0 [facility] Comment on above: Performed By: #### L [id number] ####Software Designer: LESLEE HERNANDEZ ([id number])[facility] (SBHLAB)[address] [place] [address] IMMATURE GRANS ABSOLUTE 0.0 10*3/uL Normal <0.1 [facility] Comment on above: Performed By: #### L [id number] ####Software Designer: LESLEE HERNANDEZ ([id number])[facility] (SBHLAB)[address] [place] [address] Lymphocytes (Bld) [#/Vol] 1.8 10*3/uL Normal 1.0-4.3 [facility] Comment on above: Performed By: #### L [id number] ####Software Designer: LESLEE HERNANDEZ ([id number])[facility] (SBHLAB)[address] Lymphocytes/100 WBC (Bld) 34.9 % Normal 15.0-45.0 [facility] Comment on above: Performed By: #### L [id number] ####Software Designer: LESLEE HERNANDEZ ([id number])[facility] [place] (SBHLAB)[address] MCH (RBC) [Entitic mass] 32.2 pg Normal 26.0-34.0 [facility] Comment on above: Performed By: #### L [id number] ####Software Designer: LESLEE HERNANDEZ ([id number])[facility] [place] (SBHLAB)[address] MCHC 32.3 % Normal 30.5-36.0 [facility] Comment on above: Performed By: #### L [id number] ####Software Designer: LESLEE HERNANDEZ ([id number])[facility] [place] (SBHLAB)[address] MCV (RBC) [Entitic vol] 99.8 fL High 77.0-99.0 [facility] Comment on above: Performed By: #### L [id number] ####Software Designer: LESLEE HERNANDEZ ([id number])[facility] [place] (SBHLAB)[address] Monocytes (Bld) [#/Vol] 0.3 10*3/uL Normal 0.0-0.9 [facility] Comment on above: Performed By: #### L [id number] ####Software Designer: LESLEE HERNANDEZ ([id number])[facility] [place] (SBHLAB)[address] [place] [address] Monocytes/100 WBC (Bld) 6.4 % Normal 5.0-13.0 [facility] Comment on above: Performed By: #### L [id number] ####Software Designer: LESLEE HERNANDEZ ([id number])[facility] [place] (SBHLAB)[address] NEUTROPHILS ABSOLUTE 2.9 10*3/uL Normal 1.8-7.5 [facility] Comment on above: Performed By: #### L [id number] ####Software Designer: LESLEE HERNANDEZ ([id number])[facility] (SBHLAB)[address] Neutrophils/100 WBC (Bld) 57.7 % Normal 38.0-82.0 [facility] Comment on above: Performed By: #### L [id number] ####Software Designer: LESLEE HERNANDEZ ([id number])[facility] [place] (SBHLAB)[address] NRBC 0.0 /100 WBCs Normal 0.0-2.0 [facility] Comment on above: Performed By: #### L [id number] ####Software Designer: LESLEE HERNANDEZ ([id number])[facility] [place] (SBHLAB)[address] Platelet mean volume (Bld) [Entitic vol] 10.6 fL Normal 9.0-12.7 [facility] Comment on above: Performed By: #### L [id number] ####Software Designer: LESLEE HERNANDEZ ([id number])[facility] [place] (SBHLAB)[address] [place] [address] [place] Platelets (Bld) [#/Vol] 220 10*3/uL Normal 140-440 [facility] Comment on above: Performed By: #### L [id number] ####Software Designer: LESLEE HERNANDEZ ([id number])[facility] [place] (SBHLAB)[address] [place] [address] [place] RBC (Bld) [#/Vol] 4.66 10*6/uL Normal 4.40-5.90 [facility] Comment on above: Performed By: #### L [id number] ####Software Designer: LESLEE HERNANDEZ ([id number])[facility] [place] (SBHLAB)[address] [place] [address] [place] WBC (Bld) [#/Vol] 5.0 10*3/uL Normal 3.6-10.7 [facility] Comment on above: Performed By: #### L [id number] ####Software Designer: LESLEE HERANNDEZ ([id number])[facility] [place] (SBHLAB)[address] ECG 12-LEADon 06-18-2024 ECG 12-LEAD IMPRESSION: Sinus tachycardia Left Atrial enlargement LEFT BUNDLE BRANCH BLOCK Electronically Signed On 06-18-2024 17:45:59 EST by Cleve Luke Normal [facility] HIGH SENSITIVITY TROPONIN, S ERIAL BASELINEon 06-18-2024 TROPONIN HIGH SENSITIVITY BASELINE 44 ng/L High <=35 [facility] Comment on above: Performed By: #### L [id number], [id number], [id number], LAB15 ####Software Designer: LESLEE HERNANDEZ ([id number])[facility] ([facility])[address] Laboratory - Chemistry and C hemistry - challengeon 06-18-2024 Magnesium [Mass/Vol] 2.1 mg/dL 1.6 - 2 .6 mg/dL [facility] MAGNESIUMon 06-18-2024 Magnesium [Mass/Vol] 2.1 mg/dL Normal 1.6-2.6 [facility] Comment on above: Result Comment: ALEJANDRO Aleman COMMENTS:Higher values can be expected in females during menses. Performed By: #### L AB106, [id number], [id number], LAB15 ####Software Designer: LESLEE HERNANDEZ ([id number])[facility] ([facility])[address] [place] [address] Magnesium [Mass/Vol]on 06-18 Interpretation and review of laboratory results Normal [facility] Higher values can be expected in females during menses. [facility] NT PRO BNPon 06-18-2024 Natriuretic peptide B (Bld) [Mass/Vol] 17373 pg/mL High <125 [facility] Comment on above: Performed By: #### L AB106, [id number], [id number], LAB15 ####Software Designer: LESLEE HERNANDEZ ([id number])[facility] ([facility])[address] Natriuretic peptide B [Mass/ Vol]on 06-18-2024 Interpretation and review of laboratory results Abnormal [facility] Natriuretic peptide B (Bld) [Mass/Vol] 87774 pg/mL High NINF - 125 pg/mL [facility] No Panel InformationOrdered By: Jose Carlos Luke on 06-18-2024 P Cylinder 0 degrees [facility] [employer] Work Phone: DE Interval 109 ms [employer] Work Phone: QRS Cylinder 126 degrees [employer] Work Phone: QRSD Interval 149 ms [facility] Work Phone: QT Interval 419 ms [employer] Work Phone: QTC Interval 581 ms [employer] Work Phone: T Wave Cylinder -50 degrees [employer] Work Phone: [facility] Work Phone: No Panel Informationon 06-18 Sinus tachycardia Left Atrial enlargement LEFT BUNDLE BRANCH BLOCK Electronically Signed On 06-18-2024 17:45:59 EST by Cleve Luke CV Jose Carlos Mckeon MD - 06/18/2024 IMPRESSION: Sinus tachycardia Left Atrial enlargement LEFT BUNDLE BRANCH BLOCK Electronically Signed On 06-18-2024 17:45:59 EST by Cleve Luke [facility] Interpretation and review of laboratory results Abnormal [facility] Troponin HS, Serial Baseline 44 ng/L High NINF - 35 ng/L [facility] Nursing Noteon 06-18-2024 Nursing Note Patient refusing troponin blood draw at this time. Normal [facility] Nursing Note Normal [facility] Progress Noteon 06-18-2024 Progress Note [facility] Progress Note [facility] Progress Note [facility] Progress Note Normal [facility] Vital signsOrdered By: Danilo Luke on 06-18-2024 Heart rate 115 /min bpm [facility] [employer] Work Phone: Anesthesia Noteon 06-17-2024 Anesthesia Note Normal [facility] Cardiac catheterization stud yon 06-17-2024 No significant [...] was anesthetized with lidocaine injected subcutaneously. 6 [place] sheath was advanced into the right radial artery using modified Seldinger technique. Standard cocktail of nitroglycerin and verapamil was administered through the sheath. Patient was anticoagulated with IV heparin. Left and right coronary angiograms were performed with 5 [place] JL 3.5 and JR4 catheters respectively. JR4 [...] and optimal medical management. CV CPACS HEMO [employer] MR[employer] No Panel Informationon 06-17 Performed by: Pam Alvarado [facility], [address] [place] [id number] CLIA ID: [id number] Reportable Results: OxyHemoglobin 0 - 100% Expected Ranges: OxyHemoglobin Arterial Sample 95 - 100%* Adequate Oxygenation >=92% Venous sample 60 - 85%* Note: *OxyHemoglobin Reference Ranges based upon literature review Adequate oxygenation based upon [facility] Clinical Decision [facility] Performed by: [facility], [address] [place] [id number] CLIA ID: [id number] Reportable Results: OxyHemoglobin 0 - 100% Expected Ranges: OxyHemoglobin Arterial Sample 95 - 100%* Adequate Oxygenation >=92% Venous sample 60 - 85%* Note: *OxyHemoglobin Reference Ranges based upon literature review Adequate oxygenation based upon [facility] Clinical Decision [facility] Performed by: [facility], [address] [place] [id number] CLIA ID: [id number] Reportable Results: OxyHemoglobin 0 - 100% Expected Ranges: OxyHemoglobin Arterial Sample 95 - 100%* Adequate Oxygenation >=92% Venous sample 60 - 85%* Note: *OxyHemoglobin Reference Ranges based upon literature review Adequate oxygenation based upon [facility] Clinical Decision [facility] Nursing Noteon 06-17-2024 Nursing Note Patient had a twenty second run of vtach caught on tele monitor. Dr. Mcguire and Gaby Marcano [employer] OPERATOR ADJUSTER for cardiology notified. No new orders at this time. Normal [facility] Nursing Note Normal [facility] Progress Noteon 06-17-2024 Progress Note Normal [facility] Progress Note Normal [facility] Progress Note Normal [facility] Progress Note Normal [facility] Vital signson 06-17-2024 Oxygen saturation in Blood 93 % [facility] Oxygen saturation in Blood 53 % [facility] Oxygen saturation in Blood 49 % [facility] 30on 06-16-2024 30 Normal [facility] BASIC METABOLIC PANELon 05-30 Anion gap [Moles/Vol] 9 mmol/L Normal 3-13 [facility] Comment on above: Performed By: #### L AB15, [id number] ####Software Designer: LESLEE HERNANDEZ ([id number])[facility] CENTERKeyon LELOALLISON (SBHLAB)[address] Calcium [Mass/Vol] 8.3 mg/dL Low 8.4-10.2 [facility] Comment on above: Performed By: #### L AB15, [id number] ####Software Designer: LESLEE HERNANDEZ ([id number])[facility] CENTERKeyon MCFADDENN (SBHLAB)[address] Chloride [Moles/Vol] 104 mmol/L Normal 98-107 [facility] Comment on above: Performed By: #### L AB15, [id number] ####Software Designer: LESLEE HERNANDEZ ([id number])[facility] (SBHLAB)[address] CO2 [Moles/Vol] 27 mmol/L Normal 22-29 [facility] Comment on above: Performed By: #### L AB15, [id number] ####Software Designer: LESLEE HERNANDEZ ([id number])[facility] (SBHLAB)[address] Creatinine [Mass/Vol] 1.91 mg/dL High 0.72-1.25 [facility] Comment on above: Performed By: #### L AB15, [id number] ####Software Designer: LESLEE HERNANDEZ ([id number])[facility] (SBHLAB)[address] GLOMERULAR FILTRATION RATE ML/MIN/1.73 SQ M.PREDICTED 43.2 mL/min/1.73m*2 Low >60.0 [facility] Comment on above: Result Comment: Calc ulation based on the Chronic Kidney Disease Epidemiology Collaboration (CKD-EPI) equation refit without adjustment for race Performed By: #### L AB15, [id number] ####Software Designer: LESLEE HERNANDEZ ([id number])[facility] (SBHLAB)[address] [place] [address] [place] Glucose [Mass/Vol] 107 mg/dL High 74-100 [facility] Comment on above: Performed By: #### L AB15, [id number] ####Software Designer: LESLEE TURKTYRONE ([id number])[facility]ENTERKeyon [facility] (SBHLAB)[address] Potassium [Moles/Vol] 3.9 mmol/L Normal 3.5-5.1 [facility] Comment on above: Result Comment: [facility] potassium values may be up to 0.5 mmol/L lower than serum values. Performed By: #### L AB15, [id number] ####Software Designer: LESLEE HERNANDEZ ([id number])[facility] CENTERKeyon [facility]OS[facility]ITALN (SBHLAB)[address] Sodium [Moles/Vol] 140 mmol/L Normal 136-145 [facility] Comment on above: Performed By: #### L AB15, [id number] ####Software Designer: LESLEE TURKTYRONE ([id number])[facility] (SBHLAB)[address] Urea nitrogen [Mass/Vol] 31 mg/dL High 8-21 [facility] Comment on above: Performed By: #### L AB15, [id number] ####Software Designer: LESLEE MCNEILLRAMON ([id number])[facility] (SBHLAB)[address] Basic metabolic 1998 panelon 06-16-2024 Anion gap [Moles/Vol] 9 mmol/L 3 - 13 mmol/L [facility] Calcium [Mass/Vol] 8.3 mg/dL Low 8.4 - 10. 2 mg/dL [facility] Chloride [Moles/Vol] 104 mmol/L 98 - 10 7 mmol/L [facility] CO2 [Moles/Vol] 27 mmol/L 22 - 29 mmol/L [facility] Creatinine [Mass/Vol] 1.91 mg/dL High 0.72 - 1.25 mg/dL [facility] GFR/1.73 sq M.predicted (S/P/Bld) [Vol rate/Area] 43.2 mL/min Low - PINF [facility] Comment on above: Calculation based on the Chronic Kidney Disease Epidemiology Collaboration (CKD-EPI) equation refit without adjustment for race Glucose [Mass/Vol] 107 mg/dL High 74 - 100 mg/dL [facility] Interpretation and review of laboratory results Abnormal [facility] Potassium [Moles/Vol] 3.9 mmol/L 3.5 - 5.1 mmol/L [facility] Comment on above: Plasma potassium heidi ues may be up to 0.5 mmol/L lower than serum values. Sodium [Moles/Vol] 140 mmol/L 136 - 145 mmol/L [facility] Urea nitrogen [Mass/Vol] 31 mg/dL High 8 - 21 mg/dL [facility] CBC W Auto Differential pane l (Bld)Ordered By: Jessica Santoro on 06-16-2024 Basophils (Bld) [#/Vol] 0 10*3/uL 0.0 - 0.2 10*3/uL [facility] Basophils/100 WBC (Bld) 0.4 % 0.0 - 2.0 % [facility] Eosinophils (Bld) [#/Vol] 0.1 10*3/uL 0.0 - 0.5 10*3/uL [facility] Eosinophils/100 WBC (Bld) 0.9 % 0.0 - 6.0 % [facility] Erythrocyte distribution width (RBC) [Ratio] 13.6 % 11.5 - 15.0 % [facility] Hematocrit (Bld) [Volume fraction] 47.5 % 40.0 - 52.0 % [facility] Hemoglobin (Bld) [Mass/Vol] 15.6 g/dL 13.0 - 18.0 g/dL [facility] Immature granulocytes (Bld) [#/Vol] 0 10*3/uL NINF - 0.1 10*3/uL [facility] [employer] Immature granulocytes/100 WBC (Bld) 0.2 % 0.0 - 2.0 % [facility] Interpretation and review of laboratory results Abnormal [facility] Lymphocytes (Bld) [#/Vol] 2 10*3/uL 1.0 - 4.3 10*3/uL [facility] Lymphocytes/100 WBC (Bld) 35.3 % 15.0 - 45.0 % [facility] MCH (RBC) [Entitic mass] 32.6 pg 26.0 - 34.0 pg [facility] MCHC (RBC) [Mass/Vol] 32.8 % 30.5 - 36.0 % [facility] MCV (RBC) [Entitic vol] 99.2 fL High 77.0 - 99.0 fL [facility] Monocytes (Bld) [#/Vol] 0.5 10*3/uL 0.0 - 0.9 10*3/uL [facility] Monocytes/100 WBC (Bld) 8.1 % 5.0 - 13.0 % [facility] Neutrophils (Bld) [#/Vol] 3.1 10*3/uL 1.8 - 7.5 10*3/uL [facility] Neutrophils/100 WBC (Bld) 55.1 % 38.0 - 82.0 % [facility] Nucleated RBC/100 WBC (Bld) [Ratio] 0 % [facility] Platelet mean volume (Bld) [Entitic vol] 10.3 fL 9.0 - 12.7 fL [facility] Platelets (Bld) [#/Vol] 195 10*3/uL 140 - 440 10*3/uL [facility] RBC (Bld) [#/Vol] 4.79 10*6/uL 4.40 - 5.9 0 10*6/uL [facility] WBC (Bld) [#/Vol] 5.5 10*3/uL 3.6 - 10.7 10*3/uL [facility] CBC WITH AUTO DIFFERENTIALon 06-16-2024 Basophils (Bld) [#/Vol] 0.0 10*3/uL Normal 0.0-0.2 [facility] Comment on above: Performed By: #### L [id number] ####Software Designer: LESLEE HERNANDEZ ([id number])[facility] ([facility])[address] [place] [address] Basophils/100 WBC (Bld) 0.4 % Normal 0.0-2.0 [facility] Comment on above: Performed By: #### L [id number] ####Software Designer: LESLEE HERNANDEZ ([id number])[facility] ([facility])[address] [place] [address] Eosinophils (Bld) [#/Vol] 0.1 10*3/uL Normal 0.0-0.5 [facility] Comment on above: Performed By: #### L [id number] ####Software Designer: LESLEE HERNANDEZ ([id number])[facility]ENTERA [place] (SBHLAB)[address] Eosinophils/100 WBC (Bld) 0.9 % Normal 0.0-6.0 [facility] Comment on above: Performed By: #### L [id number] ####Software Designer: LESLEE HERNANDEZ ([id number])[facility] ([facility])[address] Erythrocyte distribution width (RBC) [Ratio] 13.6 % Normal 11.5-15.0 [facility] Comment on above: Performed By: #### L [id number] ####Software Designer: LESLEE HERNANEDZ ([id number])[facility] ([facility])[address] [place] [address] Hematocrit (Bld) [Volume fraction] 47.5 % Normal 40.0-52.0 [facility] Comment on above: Performed By: #### L [id number] ####Software Designer: LESLEE HERNANDEZ ([id number])[facility] ([facility])[address] [place] [address] Hemoglobin (Bld) [Mass/Vol] 15.6 g/dL Normal 13.0-18.0 [facility] Comment on above: Performed By: #### L [id number] ####Software Designer: LESLEE HERNANDEZ ([id number])[facility] ([facility])[address] IMMATURE GRANS % 0.2 % Normal 0.0-2.0 [facility] Comment on above: Performed By: #### L [id number] ####Software Designer: LESLEE HERNANDEZ ([id number])[facility] ([facility])[address] IMMATURE GRANS ABSOLUTE 0.0 10*3/uL Normal <0.1 [facility] Comment on above: Performed By: #### L [id number] ####Software Designer: LESLEE HERNANDEZ ([id number])[facility] (SBHLAB)[address] Lymphocytes (Bld) [#/Vol] 2.0 10*3/uL Normal 1.0-4.3 [facility] Comment on above: Performed By: #### L [id number] ####Software Designer: LESLEE HERNANDEZ ([id number])[facility]ENTERA [facility]BMIMBR[facility]OSPITALN (SBHLAB)[address] Lymphocytes/100 WBC (Bld) 35.3 % Normal 15.0-45.0 [facility] Comment on above: Performed By: #### L [id number] ####Software Designer: LESLEE HERNANDEZ ([id number])[facility]A [facility]BMIMBR[facility]PITALN (SBHLAB)[address] MCH (RBC) [Entitic mass] 32.6 pg Normal 26.0-34.0 [facility] Comment on above: Performed By: #### L [id number] ####Software Designer: LESLEE HERNANDEZ ([id number])[facility]A [facility]BMIM[facility]ITALN (SBHLAB)[address] MCHC 32.8 % Normal 30.5-36.0 [facility] Comment on above: Performed By: #### L [id number] ####Software Designer: LESLEE HERNANDEZ ([id number])[facility]ENTERA [facility]ITALN (SBHLAB)[address] MCV (RBC) [Entitic vol] 99.2 fL High 77.0-99.0 [facility] Comment on above: Performed By: #### L [id number] ####Software Designer: LESLEE HERNANDEZ ([id number])[facility]ENTERA [place] (SBHLAB)[address] [place] [address] [place] Monocytes (Bld) [#/Vol] 0.5 10*3/uL Normal 0.0-0.9 [facility] Comment on above: Performed By: #### L [id number] ####Software Designer: LESLEE HERNANDEZ ([id number])[facility] (SBHLAB)[address] Monocytes/100 WBC (Bld) 8.1 % Normal 5.0-13.0 [facility] Comment on above: Performed By: #### L [id number] ####Software Designer: LESLEE HERNANDEZ ([id number])[facility]A [place] (SBHLAB)[address] NEUTROPHILS ABSOLUTE 3.1 10*3/uL Normal 1.8-7.5 [facility] Comment on above: Performed By: #### L [id number] ####Software Designer: LESLEE HERNANDEZ ([id number])[facility] (SBHLAB)[address] Neutrophils/100 WBC (Bld) 55.1 % Normal 38.0-82.0 [facility] Comment on above: Performed By: #### L [id number] ####Software Designer: LESLEE HERNANDEZ ([id number])[facility]A [place] (SBHLAB)[address] NRBC 0.0 /100 WBCs Normal 0.0-2.0 [facility] Comment on above: Performed By: #### L [id number] ####Software Designer: LESLEE HERNANDEZ ([id number])[facility]A [place] (SBHLAB)[address] Platelet mean volume (Bld) [Entitic vol] 10.3 fL Normal 9.0-12.7 [facility] Comment on above: Performed By: #### L [id number] ####Software Designer: LESLEE HERNANDEZ ([id number])[facility] (SBHLAB)[address] [place] [address] [place] Platelets (Bld) [#/Vol] 195 10*3/uL Normal 140-440 [facility] Comment on above: Performed By: #### L [id number] ####Software Designer: LESLEE HERNANDEZ ([id number])[facility]A [place] (SBHLAB)[address] RBC (Bld) [#/Vol] 4.79 10*6/uL Normal 4.40-5.90 [facility] Comment on above: Performed By: #### L [id number] ####Software Designer: LESLEE HERNANDEZ ([id number])[facility] CENTERKeyon LINDMIMBRES MEMORIAL HOSPITALMarguerite (SBHLAB)[address] WBC (Bld) [#/Vol] 5.5 10*3/uL Normal 3.6-10.7 [facility] Comment on above: Performed By: #### L [id number] ####Software Designer: LESLEE HERNANDEZ ([id number])[facility]ENTERKeyon LINDMIMBRES MEMORIAL HOSPITALMarguerite (SBHLAB)[address] Laboratory - Chemistry and C hemistry - challengeon 06-16-2024 Magnesium [Mass/Vol] 1.7 mg/dL 1.6 - 2 .6 mg/dL [facility] MAGNESIUMon 06-16-2024 Magnesium [Mass/Vol] 1.7 mg/dL Normal 1.6-2.6 [facility] Comment on above: Result Comment: ALEJANDRO Aleman COMMENTS:Higher values can be expected in females during menses. Performed By: #### L AB15, [id number] ####Software Designer: LESLEE HERNANDEZ ([id number])[facility] (SBHLAB)[address] [place] [address] Magnesium [Mass/Vol]on 06-16 Interpretation and review of laboratory results Normal [facility] Higher values can be expected in females during menses. [facility] No Panel Informationon 06-16 [facility] Nursing Noteon 06-16-2024 Nursing Note Normal [facility] Progress Noteon 06-16-2024 Progress Note [facility] 30on 06-15-2024 30 Normal [facility] [id number] 06-15-2024 [id number] Normal [facility] CHLORIDE, URINE, RANDOMon CHLORIDE, UR RANDOM 128 mmol/L Normal [facility] Comment on above: Performed By: #### L [id number], [id number], [id number], [id number] ####Software Designer: LESLEE HERNANDEZ ([id number])[facility]A [facility] (SBHLAB)[address] CHLORIDE, URINE, FRACTIONAL EXCRETION 16.0 Normal [facility] Comment on above: Performed By: #### L AB374, [id number], MPD772, [id number] ####Software Designer: LESLEE HERNANDEZ ([id number])[facility]A [place] (SBHLAB)[address] CHLORIDE, URINE, TUBULAR REABSORPTION 0.8 Normal [facility] Comment on above: Performed By: #### L AB374, [id number], [id number], [id number] ####Software Designer: LESLEE HERNANDEZ ([id number])[facility] (SBHLAB)[address] CREATININE, URINE 18.7 mg/dL Low 63.0-166.0 [facility] Comment on above: Performed By: #### L AB374, [id number], GIP887, [id number] ####Software Designer: LESLEE HERNANDEZ ([id number])[facility] ([facility])[address] [place] [address] COMPLETE URINALYSISon 2023 BILIRUBIN, TOTAL PRESENCE IN URINE Negative Normal Negative [facility] Comment on above: Performed By: #### L [id number] ####Software Designer: LESLEE HERNANDEZ ([id number])[facility] (SBHLAB)[address] Clarity (U) Clear Normal Clear [facility] Comment on above: Performed By: #### L [id number] ####Software Designer: LESLEE HERNANDEZ ([id number])[facility] (SBHLAB)[address] Color (U) Colorless Normal Lt. Yellow [facility] Comment on above: Performed By: #### L [id number] ####Software Designer: LESLEE HERNANDEZ ([id number])[facility] (SBHLAB)[address] GLUCOSE (MG/DL) IN URINE Normal Normal Normal (<70) [facility] Comment on above: Performed By: #### L [id number] ####Software Designer: LESLEE HERNANDEZ ([id number])[facility] (SBAB)[address] HEMOGLOBIN PRESENCE IN URINE Negative Normal Negative [facility] Comment on above: Performed By: #### L [id number] ####Software Designer: LESLEE HERNANDEZ ([id number])[facility] ([facility])[address] Ketones Ql (U) Negative Normal Negative [facility] Comment on above: Performed By: #### L AB347 ####Software Designer: LESLEE HERNANDEZ ([id number])[facility] ([facility])[address] LEUKOCYTE ESTERASE PRESENCE IN URINE BY TEST STRIP Negative Normal Negative [facility] Comment on above: Performed By: #### L [id number] ####Software Designer: LESLEE HERNANDEZ ([id number])[facility] ([facility])[address] [place] [address] [place] NITRITE PRESENCE IN URINE Negative Normal Negative [facility] Comment on above: Performed By: #### L [id number] ####Software Designer: ELSLEE HERNANDEZ ([id number])[facility] (SBHLAB)[address] [place] [address] [place] pH (U) 5.5 [pH] Normal 5.0-8.0 [facility] Comment on above: Performed By: #### L AB347 ####Software Designer: LESLEE HERNANDEZ ([id number])[facility] (SBHLAB)[address] Protein (U) [Mass/Vol] Negative Normal Negative [facility] Comment on above: Performed By: #### L [id number] ####Software Designer: LESLEE HERNANDEZ ([id number])[facility] CENTERKeyon MCFADDENMarguerite (SBHLAB)[address] Specific gravity (U) [Rel density] 1.007 Normal 1.005-1.030 [facility] Comment on above: Performed By: #### L [id number] ####Software Designer: LESLEE HERNANDEZ ([id number])[facility]ENTERKeyon LINDMIMBRES [facility] HOSPITALMarguerite (SBHLAB)[address] UROBILINOGEN (MG/DL) IN URINE Normal Normal Normal (0-1) [facility] Comment on above: Performed By: #### L [id number] ####Software Designer: LESLEE HERNANDEZ ([id number])[facility]ENTERKeyon LINDMIMBR[facility] HOSPITALMarguerite (SBHLAB)[address] COMPREHENSIVE METABOLIC PANE Ming 06-15-2024 Albumin [Mass/Vol] 3.0 g/dL Low 3.5-5.0 [facility] Comment on above: Performed By: #### L AB17, SIA690, [id number] ####Software Designer: LESLEE HERNANDEZ ([id number])[facility] CENTERKeyon LINDMIMBRES [facility]OR[facility] HOSPITALMarguerite (SBHLAB)[address] ALP [Catalytic activity/Vol] 110 U/L Normal 40-150 [facility] Comment on above: Performed By: #### L AB17, ZZC977, KUC965 ####Software Designer: LESLEE HERNANDEZ ([id number])[facility] CENTERKeyon LINDMIMBRES MEMORIAL HOSPITALN (SBHLAB)[address] ALT [Catalytic activity/Vol] 96 U/L High <40 [facility] Comment on above: Performed By: #### L AB17, HIX966, [id number] ####Software Designer: LESLEE HERNANDEZ ([id number])[facility] CENTERKeyon [facility] (SBHLAB)[address] Anion gap [Moles/Vol] 15 mmol/L High 3-13 [facility] Comment on above: Performed By: #### L AB17, CYB978, HTP753 ####Software Designer: LESLEE HERNANDEZ ([id number])[facility] CENTERKeyon MCFADDENMarguerite (SBHLAB)[address] AST [Catalytic activity/Vol] 31 U/L Normal <34 [facility] Comment on above: Performed By: #### L AB17, YEA859, [id number] ####Software Designer: LESLEE HERNANDEZ ([id number])[facility] CENTERKeyon MCFADDENMarguerite (SBHLAB)[address] Bilirubin [Mass/Vol] 1.6 mg/dL High <1.2 [facility] Comment on above: Performed By: #### L AB17, [id number], ZIQ811 ####Software Designer: LESLEE HERNANDEZ ([id number])[facility]ENTERKeyon MCFADDENMarguer[place] (SBHLAB)[address] Calcium [Mass/Vol] 8.9 mg/dL Normal 8.4-10.2 [facility] Comment on above: Performed By: #### L AB17, [id number], [id number] ####Software Designer: LESLEE HERNANDEZ ([id number])[facility] CENTERKeyon [place] (SBHLAB)[address] [place] [address] [place] Chloride [Moles/Vol] 103 mmol/L Normal 98-107 [facility] Comment on above: Performed By: #### L AB17, VGK388, GVT706 ####Software Designer: LESLEE HERNANDEZ ([id number])[facility] CENTERKeyon LINDEFRAÍNN (SBHLAB)[address] [place] [address] [place] CO2 [Moles/Vol] 26 mmol/L Normal 22-29 [facility] Comment on above: Performed By: #### L AB17, VEJ371, [id number] ####Software Designer: LESLEE HERNANDEZ ([id number])[facility]ENTERKeyon [place] (SBHLAB)[address] Creatinine [Mass/Vol] 2.41 mg/dL High 0.72-1.25 [facility] Comment on above: Performed By: #### L AB17, ZLY544, WML041 ####Software Designer: LESLEE HERNANDEZ ([id number])[facility] MCF[facility]ENMarguer[facility] (SBHLAB)[address] GLOMERULAR FILTRATION RATE ML/MIN/1.73 SQ M.PREDICTED 32.7 mL/min/1.73m*2 Low >60.0 [facility] Comment on above: Result Comment: Calc ulation based on the Chronic Kidney Disease Epidemiology Collaboration (CKD-EPI) equation refit without adjustment for race Performed By: #### L AB17, ELZ272, [id number] ####Software Designer: LESLEE HERNANDEZ ([id number])[facility] CENTERKeyon LINDMIMBRES [facility]OR[facility] HOSPITALMarguerite (SBHLAB)[address] [place] [address] Glucose [Mass/Vol] 103 mg/dL High 74-100 [facility] Comment on above: Performed By: #### L AB17, WWU147, THC857 ####Software Designer: LESLEE HERNANDEZ ([id number])[facility] CENTERKeyon LINDBANNER [facility] (HLAB)[address] [place] [address] Potassium [Moles/Vol] 4.1 mmol/L Normal 3.5-5.1 [facility] Comment on above: Result Comment: [facility] potassium values may be up to 0.5 mmol/L lower than serum values. Performed By: #### L AB17, [id number], [id number] ####Software Designer: LESLEE HERNANDEZ ([id number])[facility] CENTERKeyon LINDALLISON (SBHLAB)[address] Protein [Mass/Vol] 5.7 g/dL Low 6.4-8.3 [facility] Comment on above: Performed By: #### L AB17, [id number], [id number] ####Software Designer: LESLEE HERNANDEZ ([id number])[facility] CENTERKeyon [facility]DBAN[facility] (SBHLAB)[address] Sodium [Moles/Vol] 144 mmol/L Normal 136-145 [facility] Comment on above: Performed By: #### L AB17, [id number], [id number] ####Software Designer: LESLEE TORRESCER ([id number])[facility] (SBHLAB)[address] Urea nitrogen [Mass/Vol] 37 mg/dL High 8-21 [facility] Comment on above: Performed By: #### L AB17, [id number], [id number] ####Software Designer: LESLEE TURKTYRONE ([id number])[facility] (SBHLAB)[address] Comprehensive metabolic 1998 panelOrdered By: Alexandra Sin on 06-15-2024 Albumin [Mass/Vol] 3 g/dL Low 3.5 - 5.0 g/dL [facility] ALP [Catalytic activity/Vol] 110 U/L 40 - 150 U/L [facility] ALT [Catalytic activity/Vol] 96 U/L High NINF - 40 U/L [facility] Anion gap [Moles/Vol] 15 mmol/L High 3 - 13 mmol/L [facility] AST [Catalytic activity/Vol] 31 U/L NINF - 34 U/L [facility] Bilirubin [Mass/Vol] 1.6 mg/dL [facility]/dL [facility] Calcium [Mass/Vol] 8.9 mg/dL 8.4 - 10. 2 mg/dL [facility] Chloride [Moles/Vol] 103 mmol/L 98 - 10 7 mmol/L [facility] CO2 [Moles/Vol] 26 mmol/L 22 - 29 mmol/L [facility] Creatinine [Mass/Vol] 2.41 mg/dL High 0.72 - 1.25 mg/dL [facility] GFR/1.73 sq M.predicted (S/P/Bld) [Vol rate/Area] 32.7 mL/min Low - PINF [facility] Comment on above: Calculation based on the Chronic Kidney Disease Epidemiology Collaboration (CKD-EPI) equation refit without adjustment for race Glucose [Mass/Vol] 103 mg/dL High 74 - 100 mg/dL [facility] Interpretation and review of laboratory results Abnormal [facility] Potassium [Moles/Vol] 4.1 mmol/L 3.5 - 5.1 mmol/L [facility] Comment on above: Plasma potassium heidi ues may be up to 0.5 mmol/L lower than serum values. Protein [Mass/Vol] 5.7 g/dL Low 6.4 - 8.3 g/dL [facility] Sodium [Moles/Vol] 144 mmol/L 136 - 145 mmol/L [facility] Urea nitrogen [Mass/Vol] 37 mg/dL High 8 - 21 mg/dL [facility] Consulton 06-15-2024 Consult Normal [facility] Laboratory - Chemistry and C hemistry - challengeon 06-15-2024 Sodium (24H U) [Mass/Vol] 118 mmol/L [facility] Chloride (U) [Moles/Vol] 128 mmol/L [facility] TSH Qn 1.52 m[IU]/L [facility] Magnesium [Mass/Vol] 1.8 mg/dL 1.6 - 2 .6 mg/dL [facility] Laboratory - Urinalysison Protein (U) [Mass/Vol] mg/dL NINF - 14 mg/dL [facility] MAGNESIUMon 06-15-2024 Magnesium [Mass/Vol] 1.8 mg/dL Normal 1.6-2.6 [facility] Comment on above: Result Comment: ALEJANDRO Aleman COMMENTS:Higher values can be expected in females during menses. Performed By: #### L AB17, [id number], [id number] ####Software Designer: LESLEE HERNANDEZ ([id number])[facility] ([facility] [place] [address] MICROALBUMIN / CREATININE UR INE RATIOon 06-15-2024 MICROALBUMIN, URINE 5.0 ug/mL Normal [facility] Comment on above: Result Comment: ALEJANDRO Aleman COMMENTS:Microalbumin concentrations <30 are considered normal, 30-300 are considered microalbuminuria (or risk of diabetic nephropathy), and >300 are considered clinical albuminuria (clinical nephropathy).Diabetes Care,27, Supplement 1, I17-65, 2004 Performed By: #### L AB374, [id number], [id number], [id number] ####Software Designer: LESLEE HERNANDEZ ([id number])[facility] (SBHLAB)[address] MICROALBUMIN/CREATININ E RATIO 27 mg/g Normal <30 [facility] Comment on above: Performed By: #### L AB374, [id number], [id number], [id number] ####Software Designer: LESLEE HERNANDEZ ([id number])[facility] (SBHLAB)[address] Magnesium [Mass/Vol]on 06-15 Interpretation and review of laboratory results Normal [facility] Higher values can be expected in females during menses. [facility] [employer] Microalbumin/Creatinine rati o panel (U)on 06-15-2024 Albumin DL <= 20 mg/L (U) [Mass/Vol] 5 ug/mL [facility] [employer] Albumin/Creatinine DL <= 20 mg/L (U) [Mass ratio] 27 mg/g NINF - 30 mg/g [facility] Microalbumin concentrations <30 are considered normal, 30-300 are considered microalbuminuria (or risk of diabetic nephropathy), and >300 are considered clinical albuminuria (clinical nephropathy). Diabetes Care,27, Supplement 1, S72-55, 2004 [facility] No Panel Informationon 06-15 CREATININE, URINE 18.7 mg/dL Low 63.0 - 166 .0 mg/dL [facility] Interpretation and review of laboratory results Abnormal [facility] SODIUM, URINE, FRACTIONAL EXCRETION 10.6 [facility], URINE, TUBULAR REABSORPTION 0.9 [facility] CHLORIDE, URINE, FRACTIONAL EXCRETION 16 [facility] CHLORIDE, URINE, TUBULAR REABSORPTION 0.8 [facility] Nursing Noteon 06-15-2024 Nursing Note Patient is resting i n bed. Bed in low position and locked with call light in reach. Normal [facility] PROTEIN, URINE, RANDOMon TOTAL PROTEIN, UR <7 Normal <14 [facility] Comment on above: Performed By: #### L AB374, CFS861, KMH407, [id number] ####Software Designer: LESLEE HERNANDEZ ([id number])[facility] (SBHLAB)[address] Progress Noteon 06-15-2024 Progress Note Normal [facility] Progress Note Normal [facility] SODIUM, URINE, RANDOMon 05-30 Sodium (U) [Moles/Vol] 118 mmol/L Normal [facility] Comment on above: Performed By: #### L AB374, [id number], [id number], QFI171 ####Software Designer: LESLEE HERNANDEZ ([id number])[facility] (SBHLAB)[address] SODIUM, URINE, FRACTIONAL EXCRETION 10.6 Normal [facility] Comment on above: Performed By: #### L AB374, ZMW375, OMQ961, [id number] ####Software Designer: LESLEE HERNANDEZ ([id number])[facility] (SBHLAB)[address] SODIUM, URINE, TUBULAR REABSORPTION 0.9 Normal [facility] Comment on above: Performed By: #### L AB374, [id number], NYB614, UDH094 ####Software Designer: LESLEE HERNANDEZ ([id number])[facility] (HLAB)[address] THYROID STIMULATING HORMONEo n 06-15-2024 THYROID STIMULATING HORMONE 1.52 uIU/mL Normal 0.35-4.94 [facility] Comment on above: Performed By: #### L AB17, [id number], [id number] ####Software Designer: LESLEE HERNANDEZ ([id number])[facility] (SBHLAB)[address] [place] [address] [place] TSH Qnon 06-15-2024 Interpretation and review of laboratory results Normal [facility] US Heart TransthoracicOrdere d By: Ofelia Villalobos on 06-15-2024 Ao Root Index 1.39 cm/m2 [facility] Work Phone: Aortic Arch 3 cm [facility] Work Phone: Aortic Root 2.8 cm [facility] Work Phone: Aortic Sinus Valsalva 2.8 cm [facility] Work Phone: Aortic Sinus Valsalva Index 1.39 cm/m2 [facility] Work Phone: Ascending Aorta 3.2 cm [facility] Work Phone: Ascending Aorta Index 1.58 cm/m2 [facility] Work Phone: AV Area by Peak Velocity 2.9 cm2 [facility] Work Phone: AV Area by VTI 2.9 cm2 [facility] Work Phone: AV Mean Gradient 1 mmHg [facility] Work Phone: AV Mean Velocity 0.5 m/s [facility] Work Phone: AV Peak Gradient 2 mmHg [facility] Work Phone: AV Peak Velocity 0.7 m/s [facility] Work Phone: AV Velocity Ratio 1 [facility] Work Phone: AV VTI 8 cm [facility] Work Phone: EMILY/BSA Peak Velocity 1.4 cm2/m2 [facility] Work Phone: EMILY/BSA VTI 1.4 cm2/m2 [facility] Work Phone: E/E' Lateral 9 [facility] Work Phone: E/E' Ratio (Averaged) 13.5 [facility] Work Phone: E/E' Septal 18 [facility] Work Phone: EF BP 20 % Abnormal 55 - 100 % [facility] Work Phone: Est. RA Pressure 15 mmHg [facility] Work Phone: Fractional Shortening 2D 9 % 28 - 44 % [facility] Work Phone: Global Longitudinal Strain -5 % [facility] Work Phone: Interpretation and review of laboratory results Abnormal [facility] Work Phone: IVC Diameter 2.3 cm [facility] Work Phone: [phone] IVSd 1.1 cm Abnormal 0.6 - 1.0 cm [facility] Work Phone: [phone] LA Diameter 4.7 cm [facility] Work Phone: [phone] LA Size Index 2.33 cm/m2 [facility] Work Phone: [phone] LA Volume 2C 116 mL Abnormal 18 - 58 mL [facility] Work Phone: [phone] LA Volume 4C 105 mL Abnormal 18 - 58 mL [facility] Work Phone: [phone] LA Volume A/L 124 mL [facility] Work Phone: [phone] LA Volume BP 115 mL Abnormal 18 - 58 mL [facility] [employer] Work Phone: [phone] LA Volume Index 2C 57 mL/m2 Abnormal 16 - 34 mL/m2 [facility] Work Phone: LA Volume Index 4C 52 mL/m2 Abnormal 16 - 34 mL/m2 [facility] Work Phone: [phone] LA Volume Index A/L 61 mL/m2 16 - 34 mL/m2 [facility] Work Phone: [phone] LA Volume Index BP 57 ml/m2 Abnormal 16 - 34 ml/m2 [facility] Work Phone: LA/AO Root Ratio 1.68 [facility] Work Phone: [phone] LV E' Lateral Velocity 10 cm/s [facility] Work Phone: LV E' Septal Velocity 5 cm/s [facility] Work Phone: [phone] LV EDV A2C 228 mL [facility] Work Phone: [phone] LV EDV A4C 221 mL [facility] Work Phone: [phone] LV EDV BP 227 mL Abnormal 67 - 155 mL [facility] Work Phone: [phone] LV EDV Index A2C 113 mL/m2 [facility] Work Phone: LV EDV Index A4C 109 mL/m2 [facility] Work Phone: LV EDV Index BP 112 mL/m2 [facility] Work Phone: LV Ejection Fraction A2C 22 % [facility] Work Phone: LV Ejection Fraction A4C 19 % [facility] Work Phone: LV ESV A2C 177 mL [facility] Work Phone: LV ESV A4C 180 mL [facility] Work Phone: LV ESV BP 181 mL Abnormal 22 - 58 mL [facility] Work Phone: LV ESV Index A2C 88 mL/m2 [facility] Work Phone: LV ESV Index A4C 89 mL/m2 [facility] Work Phone: LV ESV Index BP 90 mL/m2 [facility] Work Phone: LV Mass 2D 288.7 g Abnormal 88 - 224 g [facility] Work Phone: LV Mass 2D Index 142.9 g/m2 Abnormal 49 - 115 g/m2 [facility] [employer] Work Phone: LV RWT Ratio 0.46 [facility] Work Phone: LVIDd 5.7 cm 4.2 - 5.9 cm [facility] Work Phone: LVIDd Index 2.82 cm/m2 [facility] Work Phone: LVIDs 5.2 cm [facility] Work Phone: LVIDs Index 2.57 cm/m2 [facility] Work Phone: LVOT Area 3.1 cm2 [facility] Work Phone: LVOT Cardiac Output 2.4 liter/minute [facility] Work Phone: LVOT Diameter 2 cm [facility] Work Phone: LVOT Mean Gradient 1 mmHg [facility] Work Phone: LVOT Peak Gradient 2 mmHg [facility] Work Phone: LVOT Peak Velocity 0.7 m/s [facility] Work Phone: LVOT Stroke Volume Index 12.1 mL/m2 [facility] Work Phone: LVOT SV 24.5 ml [facility] Work Phone: LVOT VTI 7.8 cm [facility] Work Phone: LVOT:AV VTI Index 0.98 [facility] e[facility] Work Phone: LVPWd 1.3 cm Abnormal 0.6 - 1.0 cm [facility] Work Phone: MR VTI 114.6 cm [facility] Work Phone: MV A Velocity 0.33 m/s [facility] [employer] [facility] Work Phone: MV E Velocity 0.9 m/s [facility] Work Phone: MV E Wave Deceleration Time 86.1 ms [facility] [employer] Work Phone: MV E/A 2.73 [facility] [employer] Work Phone: MV Nyquist Velocity 36 cm/s [facility] Work Phone: MV Regurg Velocity PISA 4.3 m/s [facility] [employer] Work Phone: Pulmonary Artery EDP 8 mmHg [facility] Work Phone: RA Area 4C 98.5 mL [facility] Work Phone: RA Area 4C 91.2 mL [facility] Work Phone: RV Basal Dimension 5.4 cm [facility] Work Phone: RV Free Wall Peak S' 10 cm/s [facility] Work Phone: RV Longitudinal Dimension 9.1 cm [facility] Work Phone: RV Mid Dimension 3.1 cm [facility] Work Phone: RVSP 46 mmHg [facility] Work Phone: Sinotubular Junction 2.5 cm [facility] Work Phone: TAPSE 2 cm 1.7 cm [facility] [employer] Work Phone: TR Max Velocity 2.78 m/s [facility] Work Phone: TR Peak Gradient 31 mmHg Pam hurley Work Phone: [facility] [employer] Work Phone: US Heart Transthoracicon Left Ventricle: Left ventricle is [...] contrast was given. Echo performed by [employer] student Delisa under direct supervision. CV CPACS Urinalysis complete panel (U )on 06-15-2024 Bilirubin Ql (U) Negative Negative mg/dL [facility] Clarity (U) Clear Clear [facility] Color (U) Colorless Lt. Yellow [facility] Glucose Ql (U) Normal Normal (<70) mg/dL [facility] Hemoglobin Ql (U) Negative Negative mg/dL [facility] Interpretation and review of laboratory results Normal [facility] Ketones (U) [Mass/Vol] Negative Negat dai mg/dL [facility] Leukocyte esterase Test strip Ql (U) Negative Negative Nicky/uL [facility] Nitrite Ql (U) Negative Negative [facility] th pH (U) 5.5 [pH] 5.0 - 8.0 pH [facility] Protein (U) [Mass/Vol] Negative Negat dai mg/dL [facility] Specific gravity (U) [Rel density] 1.007 1.005 - 1.030 [facility] Urobilinogen (U) [Mass/Vol] Normal Normal (0-1) mg/dL [facility] [id number] 06-14-2024 [id number] Normal [facility] BASIC METABOLIC PANELon 05-30 Anion gap [Moles/Vol] 11 mmol/L Normal 3-13 [facility] Comment on above: Performed By: #### L AB18, LAB15 ####Software Designer: LESLEE HERNANDEZ ([id number])[facility] ([facility])[address] [place] [address] Calcium [Mass/Vol] 7.2 mg/dL Low 8.4-10.2 [facility] Comment on above: Performed By: #### L AB18, LAB15 ####Software Designer: LESLEE HERNANDEZ ([id number])[facility] [place] (SBHLAB)[address] Chloride [Moles/Vol] 118 mmol/L High 98-107 [facility] Comment on above: Performed By: #### L AB18, LAB15 ####Software Designer: LESLEE HERNANDEZ ([id number])[facility] [place] (SBHLAB)[address] CO2 [Moles/Vol] 15 mmol/L Low 22-29 [facility] Comment on above: Performed By: #### L AB18, LAB15 ####Software Designer: LESLEE HERNANDEZ ([id number])[facility] [place] (SBHLAB)[address] Creatinine [Mass/Vol] 1.74 mg/dL High 0.72-1.25 [facility] Comment on above: Performed By: #### L AB18, LAB15 ####Software Designer: LESLEE HERNANDEZ ([id number])[facility] [place] (SB[facility]AB)[address] GLOMERULAR FILTRATION RATE ML/MIN/1.73 SQ M.PREDICTED 48.4 mL/min/1.73m*2 Low >60.0 [facility] Comment on above: Result Comment: Calc ulation based on the Chronic Kidney Disease Epidemiology Collaboration (CKD-EPI) equation refit without adjustment for race Performed By: #### L AB18, LAB15 ####Software Designer: LESLEE HERNANDEZ ([id number])[facility] [place] (SBHLAB)[address] [place] [address] [place] Glucose [Mass/Vol] 81 mg/dL Normal 74-100 [facility] Comment on above: Performed By: #### L AB18, LAB15 ####Software Designer: LESLEE HERNANDEZ ([id number])[facility] [place] (SBHLAB)[address] [place] [address] [place] Potassium [Moles/Vol] 3.6 mmol/L Normal 3.5-5.1 [facility] Comment on above: Result Comment: [facility] potassium values may be up to 0.5 mmol/L lower than serum values. Performed By: #### L AB18, LAB15 ####Software Designer: LESLEE HRENANDEZ ([id number])[facility] (SBHLAB)[address] Sodium [Moles/Vol] 144 mmol/L Normal 136-145 [facility] Comment on above: Performed By: #### L AB18, LAB15 ####Software Designer: LESLEE HERNANDEZ ([id number])[facility] (SB[facility]AB)[address] Urea nitrogen [Mass/Vol] 32 mg/dL High 8-21 [facility] Comment on above: Performed By: #### L AB18, LAB15 ####Software Designer: LESLEE HERNANDEZ ([id number])[facility] (SBHLAB)[address] Basic metabolic 1998 panelOr dered By: Krista Campbell on 06-14-2024 Anion gap [Moles/Vol] 11 mmol/L 3 - 13 mmol/L [facility] Calcium [Mass/Vol] 7.2 mg/dL Low 8.4 - 10. 2 mg/dL [facility] Chloride [Moles/Vol] 118 mmol/L High 98 - 10 7 mmol/L [facility] CO2 [Moles/Vol] 15 mmol/L Low 22 - 29 mmol/L [facility] Creatinine [Mass/Vol] 1.74 mg/dL High 0.72 - 1.25 mg/dL [facility] GFR/1.73 sq M.predicted (S/P/Bld) [Vol rate/Area] 48.4 mL/min Low - PINF [facility] Comment on above: Calculation based on the Chronic Kidney Disease Epidemiology Collaboration (CKD-EPI) equation refit without adjustment for race Glucose [Mass/Vol] 81 mg/dL 74 - 100 mg/dL [facility] Interpretation and review of laboratory results Abnormal [facility] Potassium [Moles/Vol] 3.6 mmol/L 3.5 - 5.1 mmol/L [facility] Comment on above: Plasma potassium heidi ues may be up to 0.5 mmol/L lower than serum values. Sodium [Moles/Vol] 144 mmol/L 136 - 145 mmol/L [facility] Urea nitrogen [Mass/Vol] 32 mg/dL High 8 - 21 mg/dL [facility] CT ABDOMEN PELVIS WO IV CONT RASTon 06-14-2024 CT ABDOMEN PELVIS WO IV CONTRAST Normal [facility] CT Abdomen and Pelvis WO con traston 06-14-2024 1. Small amount of nonspecific free fluid in the dependent pelvis. 2. Cardiomegaly. Report Dictated on Electronically Signed By: Juan Pereira MD Electronically Signed Date/Time: 06/14/2024 10:23 AM [facility] 1980 [id number] Exam Date/Time: 06/14/2024 09:41 Procedure: CT ABDOMEN [...] umbilical hernia. Osseous structures: No osseous abnormalities. [facility] Juan Pereira MD - 06/14/2024 Patient Name: CARLO MEDINA : 1980 [facility]#: [id number] Exam Date/Time: 06/14/2024 09:41 Procedure: CT ABDOMEN [...] Electronically Signed Date/Time: 06/14/2024 10:23 AM EST [facility] Radiology Study observation (narrative) [facility] CT Abdomen and Pelvis WO con trastOrdered By: Juan Pereira on 06-14-2024 [facility] [employer] Work Phone: Consulton 06-14-2024 Consult Normal [facility] ECG 12-LEADon 06-14-2024 ECG 12-LEAD IMPRESSION: Sinus tachycardia Left atrial enlargement Left ventricular hypertrophy ST elevation secondary to IVCD Electronically Signed On 06-14-2024 02:04:38 EST by Ventura Mcconnell Normal [facility] LIPID PANELon 06-14-2024 Cholesterol [Mass/Vol] 130 mg/dL Normal <200 [facility] Comment on above: Performed By: #### L AB18, LAB15 ####Software Designer: LESLEE HERNANDEZ ([id number])[facility] [place] ([facility])[address] Cholesterol in HDL [Mass/Vol] 16 mg/dL Low >=60 [facility] Comment on above: Performed By: #### L AB18, LAB15 ####Software Designer: LESLEE HERNANDEZ ([id number])[facility] ([facility])[address] Cholesterol.total/Chol esterol in HDL [Mass ratio] 8 {ratio} Normal [facility] Comment on above: Result Comment: Ref Range:< 3 Low Risk for CHD3-6 Mod Risk for CHD> 6 High Risk for CHD Performed By: #### L AB18, LAB15 ####Software Designer: LESLEE HERNANDEZ ([id number])[facility] [place] ([facility])[address] LOW DENSITY LIPOPROTEIN 100 mg/dL High 0-<100 [facility] Comment on above: Performed By: #### L AB18, LAB15 ####Software Designer: LESLEE HERNANDEZ ([id number])[facility] (SB[facility]AB)[address] NON-HDL CHOLESTEROL, CALCULATED 114 Normal <130 [facility] Comment on above: Performed By: #### L AB18, LAB15 ####Software Designer: LESLEE HERNANDEZ ([id number])[facility] (SBHLAB)[address] Triglyceride [Mass/Vol] 68 mg/dL Normal <150 [facility] Comment on above: Performed By: #### L AB18, LAB15 ####Software Designer: LESLEE HERNANDEZ ([id number])[facility] (SBHLAB)[address] VERY LOW DENSITY LIPOPROTEIN, CALCULATED 14 mg/dL Normal <=30 [facility] Comment on above: Performed By: #### L AB18, LAB15 ####Software Designer: LESLEE HERNANDEZ ([id number])[facility] (SBHLAB)[address] Lipid 1996 panelon 4 Cholesterol [Mass/Vol] 130 mg/dL NINF - 200 mg/dL [facility] [employer] Cholesterol in HDL [Mass/Vol] 16 mg/dL Low 60 - PINF mg/dL [facility] [employer] Cholesterol in LDL [Mass/Vol] 100 mg/dL High 0 - <100 [facility] [employer] Cholesterol.total/Chol esterol in HDL [Mass ratio] 8 {ratio} [facility] Comment on above: Ref Range: < 3 Low Risk for CHD 3-6 Mod Risk for CHD > 6 High Risk for CHD Interpretation and review of laboratory results Abnormal [facility] [employer] NON-HDL CHOLESTEROL, CALCULATED 114 NINF - 130 [facility] [employer] Triglyceride [Mass/Vol] 68 mg/dL NINF - 150 mg/dL [facility] [employer] VERY LOW DENSITY LIPOPROTEIN, CALCULATED 14 mg/dL NINF - 30 mg/dL [facility] No Panel Informationon 06-14 Acute occlusive deep [...] Patent, compressible. Peroneal Vein: Acute occlusive thrombus. Electronic Equipment Set Up Operator Details A forrest scale, color Doppler imaging [...] On 06-14-2024 02:04:38 EST by Ventura Mcconnell Air[employer] Panel InformationOrdered By: Ventura Mcconnell on 06-14-2024 P Cylinder 69 degrees [employer] Phone: DE Interval 148 ms [employer] Phone: QRS Cylinder 31 degrees [facility] [employer] Work Phone: QRSD Interval 147 ms [facility] [employer] Work Phone: QT Interval 402 ms [facility] [employer] Work Phone: QTC Interval 539 ms [facility] [employer] Work Phone: T Wave Cylinder 4 degrees [facility] [employer] Work Phone: [facility] [employer] Work Phone: Progress Noteon 06-14-2024 Progress Note Normal [facility] Progress Note Normal [facility] Vital signsOrdered By: Marj Mcconnell on 06-14-2024 Heart rate 108 /min bpm [facility] [employer] Work Phone: 30on 06-13-2024 30 Normal [facility] BASIC METABOLIC PANELon 05-30 Anion gap [Moles/Vol] 10 mmol/L Normal 3-13 [facility] Comment on above: Performed By: #### Pedro JESSICA15, [id number], [id number] ####Software Designer: LESLEE HERNANDEZ ([id number])[facility] ([facility])[address] [place] [address] Calcium [Mass/Vol] 8.6 mg/dL Normal 8.4-10.2 [facility] Comment on above: Performed By: #### Pedro ORTEZ, [id number], [id number] ####Software Designer: LESLEE HERNANDEZ ([id number])[facility] (HLAB)[address] [place] [address] [place] Chloride [Moles/Vol] 114 mmol/L High 98-107 [facility] Comment on above: Performed By: #### Pedro AB15, [id number], [id number] ####Software Designer: LESLEE HERNANDEZ ([id number])[facility] (SBHLAB)[address] [place] [address] [place] CO2 [Moles/Vol] 18 mmol/L Low 22-29 [facility] Comment on above: Performed By: #### Pedro ORTEZ, [id number], [id number] ####Software Designer: LESLEE HERNANDEZ ([id number])[facility]ENTER[facility] (HLAB)[address] Creatinine [Mass/Vol] 2.03 mg/dL High 0.72-1.25 [facility] Comment on above: Performed By: #### Pedro ORTEZ, [id number], [id number] ####Software Designer: LESLEE HERNANDEZ ([id number])[facility] ([facility])[address] GLOMERULAR FILTRATION RATE ML/MIN/1.73 SQ M.PREDICTED 40.2 mL/min/1.73m*2 Low >60.0 [facility] Comment on above: Result Comment: Calc ulation based on the Chronic Kidney Disease Epidemiology Collaboration (CKD-EPI) equation refit without adjustment for race Performed By: #### Pedro ORTEZ, [id number], [id number] ####Software Designer: LESLEE HERNANDEZ ([id number])[facility] ([facility])[address] [place] [address] Glucose [Mass/Vol] 104 mg/dL High 74-100 [facility] Comment on above: Performed By: #### Pedro ORTEZ, [id number], [id number] ####Software Designer: LESLEE HERNANDEZ ([id number])[facility] ([facility])[address] Potassium [Moles/Vol] 4.9 mmol/L Normal 3.5-5.1 [facility] Comment on above: Result Comment: TCPo tential interference from hemolysis Performed By: #### Pedro ORTEZ, [id number], [id number] ####Software Designer: LESLEE HERNANDEZ ([id number])[facility] ([facility])[address] [place] [address] [place] Sodium [Moles/Vol] 142 mmol/L Normal 136-145 [facility] Comment on above: Performed By: #### Pedro ORTEZ, [id number], [id number] ####Software Designer: LESLEE HERNANDEZ ([id number])[facility] (SBHLAB)[address] Urea nitrogen [Mass/Vol] 34 mg/dL High 8-21 [facility] Comment on above: Performed By: #### L AB15, [id number], [id number] ####Software Designer: LESLEE HERNANDEZ ([id number])[facility] (SBHLAB)[address] Basic metabolic 1998 panelon 06-13-2024 Anion gap [Moles/Vol] 10 mmol/L 3 - 13 mmol/L [facility] Calcium [Mass/Vol] 8.6 mg/dL 8.4 - 10. 2 mg/dL [facility] Chloride [Moles/Vol] 114 mmol/L High 98 - 10 7 mmol/L [facility] CO2 [Moles/Vol] 18 mmol/L Low 22 - 29 mmol/L [facility] Creatinine [Mass/Vol] 2.03 mg/dL High 0.72 - 1.25 mg/dL [facility] GFR/1.73 sq M.predicted (S/P/Bld) [Vol rate/Area] 40.2 mL/min Low - PINF [facility] Comment on above: Calculation based on the Chronic Kidney Disease Epidemiology Collaboration (CKD-EPI) equation refit without adjustment for race Glucose [Mass/Vol] 104 mg/dL High 74 - 100 mg/dL [facility] Interpretation and review of laboratory results Abnormal [facility] Potassium [Moles/Vol] 4.9 mmol/L 3.5 - 5.1 mmol/L [facility] Comment on above: TC Potential interference from hemolysis Sodium [Moles/Vol] 142 mmol/L 136 - 145 mmol/L [facility] Urea nitrogen [Mass/Vol] 34 mg/dL High 8 - 21 mg/dL [facility] CBC W Auto Differential pane l (Bld)Ordered By: Maritza Knowles on 06-13-2024 Basophils (Bld) [#/Vol] 0 10*3/uL 0.0 - 0.2 10*3/uL [facility] Basophils/100 WBC (Bld) 0.2 % 0.0 - 2.0 % [facility] Eosinophils (Bld) [#/Vol] 0 10*3/uL 0.0 - 0.5 10*3/uL [facility] Eosinophils/100 WBC (Bld) 0.1 % 0.0 - 6.0 % [facility] Erythrocyte distribution width (RBC) [Ratio] 14.6 % 11.5 - 15.0 % [facility] Hematocrit (Bld) [Volume fraction] 52.1 % High 40.0 - 52.0 % [facility] Hemoglobin (Bld) [Mass/Vol] 16.4 g/dL 13.0 - 18.0 g/dL [facility] Immature granulocytes (Bld) [#/Vol] 0 10*3/uL NINF - 0.1 10*3/uL [facility] Immature granulocytes/100 WBC (Bld) 0.2 % 0.0 - 2.0 % [facility] Interpretation and review of laboratory results Abnormal [facility] Lymphocytes (Bld) [#/Vol] 1.7 10*3/uL 1.0 - 4.3 10*3/uL [facility] Lymphocytes/100 WBC (Bld) 20 % 15.0 - 45.0 % [facility] MCH (RBC) [Entitic mass] 32.5 pg 26.0 - 34.0 pg [facility] MCHC (RBC) [Mass/Vol] 31.5 % 30.5 - 36.0 % [facility] MCV (RBC) [Entitic vol] 103.2 fL High 77.0 - 99.0 fL [facility] Monocytes (Bld) [#/Vol] 0.6 10*3/uL 0.0 - 0.9 10*3/uL [facility] Monocytes/100 WBC (Bld) 7.4 % 5.0 - 13.0 % [facility] Neutrophils (Bld) [#/Vol] 6.2 10*3/uL 1.8 - 7.5 10*3/uL [facility] Neutrophils/100 WBC (Bld) 72.1 % 38.0 - 82.0 % [facility] Nucleated RBC/100 WBC (Bld) [Ratio] 0 % [facility] Platelet mean volume (Bld) [Entitic vol] 10.7 fL 9.0 - 12.7 fL [facility] Platelets (Bld) [#/Vol] 217 10*3/uL 140 - 440 10*3/uL [facility] RBC (Bld) [#/Vol] 5.05 10*6/uL 4.40 - 5.9 0 10*6/uL [facility] WBC (Bld) [#/Vol] 8.7 10*3/uL 3.6 - 10.7 10*3/uL [facility] CBC WITH AUTO DIFFERENTIALon 06-13-2024 Basophils (Bld) [#/Vol] 0.0 10*3/uL Normal 0.0-0.2 [facility] Comment on above: Performed By: #### L [id number] ####Software Designer: LESLEE HERNANDEZ ([id number])[facility]A [facility] (SBAB)[address] Basophils/100 WBC (Bld) 0.2 % Normal 0.0-2.0 [facility] Comment on above: Performed By: #### L [id number] ####Software Designer: LESLEE HERNANDEZ ([id number])[facility]A [place] (SBHLAB)[address] [place] [address] [place] Eosinophils (Bld) [#/Vol] 0.0 10*3/uL Normal 0.0-0.5 [facility] Comment on above: Performed By: #### L [id number] ####Software Designer: LESLEE HERNANDEZ ([id number])[facility] [place] (SBHLAB)[address] [place] [address] Eosinophils/100 WBC (Bld) 0.1 % Normal 0.0-6.0 [facility] Comment on above: Performed By: #### L [id number] ####Software Designer: LESLEE HERNANDEZ ([id number])[facility] [place] (SBHLAB)[address] [place] [address] [place] Erythrocyte distribution width (RBC) [Ratio] 14.6 % Normal 11.5-15.0 [facility] Comment on above: Performed By: #### L [id number] ####Software Designer: LESLEE HERNANDEZ ([id number])[facility] (SBHLAB)[address] Hematocrit (Bld) [Volume fraction] 52.1 % High 40.0-52.0 [facility] Comment on above: Performed By: #### L [id number] ####Software Designer: LESLEE HERNANDEZ ([id number])[facility] (SBHLAB)[address] Hemoglobin (Bld) [Mass/Vol] 16.4 g/dL Normal 13.0-18.0 [facility] Comment on above: Performed By: #### L [id number] ####Software Designer: LESLEE HERNANDEZ ([id number])[facility] ([facility])[address] IMMATURE GRANS % 0.2 % Normal 0.0-2.0 [facility] Comment on above: Performed By: #### L [id number] ####Software Designer: LESLEE HERNANDEZ ([id number])[facility] (SB[facility]AB)[address] IMMATURE GRANS ABSOLUTE 0.0 10*3/uL Normal <0.1 [facility] Comment on above: Performed By: #### L [id number] ####Software Designer: LESLEE HERNANDEZ ([id number])[facility] (SB[facility]AB)[address] [place] [address] Lymphocytes (Bld) [#/Vol] 1.7 10*3/uL Normal 1.0-4.3 [facility] Comment on above: Performed By: #### L [id number] ####Software Designer: LESLEE HERNANDEZ ([id number])[facility] (SB[facility])[address] [place] [address] [place] Lymphocytes/100 WBC (Bld) 20.0 % Normal 15.0-45.0 [facility] Comment on above: Performed By: #### L [id number] ####Software Designer: LESLEE HERNANDEZ ([id number])[facility] (SBHLAB)[address] MCH (RBC) [Entitic mass] 32.5 pg Normal 26.0-34.0 [facility] Comment on above: Performed By: #### L [id number] ####Software Designer: LESLEE TURKTYRONE ([id number])[facility] [place] (SBHLAB)[address] MCHC 31.5 % Normal 30.5-36.0 [facility] Comment on above: Performed By: #### L [id number] ####Software Designer: LESLEE HERNANDEZ ([id number])[facility] [place] (SBHLAB)[address] MCV (RBC) [Entitic vol] 103.2 fL High 77.0-99.0 [facility] Comment on above: Performed By: #### L [id number] ####Software Designer: LESLEE HERNANDEZ ([id number])[facility] [place] (SBHLAB)[address] Monocytes (Bld) [#/Vol] 0.6 10*3/uL Normal 0.0-0.9 [facility] Comment on above: Performed By: #### L [id number] ####Software Designer: LESLEE HERNANDEZ ([id number])[facility] [place] (SBHLAB)[address] Monocytes/100 WBC (Bld) 7.4 % Normal 5.0-13.0 [facility] Comment on above: Performed By: #### L [id number] ####Software Designer: LESLEE HERNANDEZ ([id number])[facility] [place] (SBHLAB)[address] NEUTROPHILS ABSOLUTE 6.2 10*3/uL Normal 1.8-7.5 [facility] Comment on above: Performed By: #### L [id number] ####Software Designer: LESLEE HERNANDEZ ([id number])[facility] [place] (SBHLAB)[address] Neutrophils/100 WBC (Bld) 72.1 % Normal 38.0-82.0 [facility] Comment on above: Performed By: #### L [id number] ####Software Designer: LESLEE HERNANDEZ ([id number])[facility] [place] (SBHLAB)[address] NRBC 0.0 /100 WBCs Normal 0.0-2.0 [facility] Comment on above: Performed By: #### L [id number] ####Software Designer: LESLEE HERNANDEZ ([id number])[facility] [place] (SBHLAB)[address] Platelet mean volume (Bld) [Entitic vol] 10.7 fL Normal 9.0-12.7 [facility] Comment on above: Performed By: #### L [id number] ####Software Designer: LESLEE HERNANDEZ ([id number])[facility] [place] (SBHLAB)[address] Platelets (Bld) [#/Vol] 217 10*3/uL Normal 140-440 [facility] Comment on above: Performed By: #### L [id number] ####Software Designer: LESLEE HERNANDEZ ([id number])[facility] [place] (SBHLAB)[address] RBC (Bld) [#/Vol] 5.05 10*6/uL Normal 4.40-5.90 [facility] Comment on above: Performed By: #### L [id number] ####Software Designer: LESLEE HERNANDEZ ([id number])[facility] [place] (SBHLAB)[address] [place] [address] [place] WBC (Bld) [#/Vol] 8.7 10*3/uL Normal 3.6-10.7 [facility] Comment on above: Performed By: #### L [id number] ####Software Designer: LESLEE HERNANDEZ ([id number])[facility] [place] (SBHLAB)[address] COMPREHENSIVE METABOLIC PANE Ming 06-13-2024 Albumin [Mass/Vol] 3.1 g/dL Low 3.5-5.0 [facility] Comment on above: Performed By: #### L [id number], [id number], LAB17, [id number], LAB99 ####Software Designer: LESLEE HERNANDEZ ([id number])[facility] [place] (SBHLAB)[address] ALP [Catalytic activity/Vol] 129 U/L Normal 40-150 [facility] Comment on above: Performed By: #### L AB129, [id number], LAB17, [id number], LAB99 ####Software Designer: LESLEE HERNANDEZ ([id number])[facility] [place] (SBHLAB)[address] ALT [Catalytic activity/Vol] 121 U/L High <40 [facility] Comment on above: Performed By: #### L AB129, [id number], LAB17, [id number], LAB99 ####Software Designer: LESLEE HERNANDEZ ([id number])[facility] [place] (SBHLAB)[address] Anion gap [Moles/Vol] 12 mmol/L Normal 3-13 [facility] Comment on above: Performed By: #### L AB129, [id number], LAB17, [id number], LAB99 ####Software Designer: LESLEE HERNANDEZ ([id number])[facility] [place] (SBHLAB)[address] AST [Catalytic activity/Vol] 47 U/L High <34 [facility] Comment on above: Performed By: #### L AB129, [id number], LAB17, [id number], LAB99 ####Software Designer: LESLEE HERNANDEZ ([id number])[facility] [place] (SBHLAB)[address] Bilirubin [Mass/Vol] 1.5 mg/dL High <1.2 [facility] Comment on above: Performed By: #### L AB129, [id number], LAB17, [id number], LAB99 ####Software Designer: LESLEE HERNANDEZ ([id number])[facility]ENTERKeyon [place] (SBHLAB)[address] Calcium [Mass/Vol] 8.7 mg/dL Normal 8.4-10.2 [facility] Comment on above: Performed By: #### L AB129, [id number], LAB17, GNP553, LAB99 ####Software Designer: LESLEE HENRANDEZ ([id number])[facility]ENTERKeyon [place] (SBHLAB)[address] Chloride [Moles/Vol] 113 mmol/L High 98-107 [facility] Comment on above: Performed By: #### L AB129, [id number], LAB17, [id number], LAB99 ####Software Designer: LESLEE HERNANDEZ ([id number])[facility] CENTERKeyon [facility] (SBHLAB)[address] CO2 [Moles/Vol] 17 mmol/L Low 22-29 [facility] Comment on above: Performed By: #### L AB129, [id number], LAB17, [id number], LAB99 ####Software Designer: LESLEE HERNANDEZ ([id number])[facility] CENTERKeyon [facility] (SBHLAB)[address] Creatinine [Mass/Vol] 2.32 mg/dL High 0.72-1.25 [facility] Comment on above: Performed By: #### L AB129, [id number], LAB17, [id number], LAB99 ####Software Designer: LESLEE HERNANDEZ ([id number])[facility]ENTERKey[facility] [place] (SBHLAB)[address] [place] [address] [place] GLOMERULAR FILTRATION RATE ML/MIN/1.73 SQ M.PREDICTED 34.2 mL/min/1.73m*2 Low >60.0 [facility] Comment on above: Result Comment: Calc ulation based on the Chronic Kidney Disease Epidemiology Collaboration (CKD-EPI) equation refit without adjustment for race Performed By: #### L AB129, [id number], LAB17, [id number], LAB99 ####Software Designer: LESLEE TURKTYRONE ([id number])[facility] (SBHLAB)[address] Glucose [Mass/Vol] 115 mg/dL High 74-100 [facility] Comment on above: Performed By: #### L AB129, [id number], LAB17, QIS132, LAB99 ####Software Designer: LESLEE TURKTYRONE ([id number])[facility] (SBHLAB)[address] Potassium [Moles/Vol] 5.7 mmol/L High 3.5-5.1 [facility] Comment on above: Result Comment: [facility] potassium values may be up to 0.5 mmol/L lower than serum values. Performed By: #### L AB129, [id number], LAB17, [id number], LAB99 ####Software Designer: LESLEE TURKTYRONE ([id number])[facility] (HLAB)[address] Protein [Mass/Vol] 6.0 g/dL Low 6.4-8.3 [facility] Comment on above: Performed By: #### L AB129, [id number], LAB17, FWI133, LAB99 ####Software Designer: LESLEE HERNANDEZ ([id number])[facility] (SBHLAB)[address] Sodium [Moles/Vol] 142 mmol/L Normal 136-145 [facility] Comment on above: Performed By: #### L AB129, [id number], LAB17, [id number], LAB99 ####Software Designer: LESLEE HERNANDEZ ([id number])[facility] (SBHLAB)[address] Urea nitrogen [Mass/Vol] 36 mg/dL High 8-21 [facility] Comment on above: Performed By: #### L AB129, [id number], LAB17, [id number], LAB99 ####Software Designer: LESLEE HERNANDEZ ([id number])[facility] (SBHLAB)[address] [place] [address] Comprehensive metabolic 1998 panelon 06-13-2024 Albumin [Mass/Vol] 3.1 g/dL Low 3.5 - 5.0 g/dL [facility] ALP [Catalytic activity/Vol] 129 U/L 40 - 150 U/L [facility] ALT [Catalytic activity/Vol] 121 U/L High NINF - 40 U/L [facility] Anion gap [Moles/Vol] 12 mmol/L 3 - 13 mmol/L [facility] AST [Catalytic activity/Vol] 47 U/L High NINF - 34 U/L [facility] Bilirubin [Mass/Vol] 1.5 mg/dL High NINF - 1.2 mg/dL [facility] Calcium [Mass/Vol] 8.7 mg/dL 8.4 - 10. 2 mg/dL [facility] Chloride [Moles/Vol] 113 mmol/L High 98 - 10 7 mmol/L [facility] CO2 [Moles/Vol] 17 mmol/L Low 22 - 29 mmol/L [facility] Creatinine [Mass/Vol] 2.32 mg/dL High 0.72 - 1.25 mg/dL [facility] GFR/1.73 sq M.predicted (S/P/Bld) [Vol rate/Area] 34.2 mL/min Low - PINF [facility] Comment on above: Calculation based on the Chronic Kidney Disease Epidemiology Collaboration (CKD-EPI) equation refit without adjustment for race Glucose [Mass/Vol] 115 mg/dL High 74 - 100 mg/dL [facility] Interpretation and review of laboratory results Abnormal [facility] Potassium [Moles/Vol] 5.7 mmol/L High 3.5 - 5.1 mmol/L [facility] Comment on above: Plasma potassium heidi ues may be up to 0.5 mmol/L lower than serum values. Protein [Mass/Vol] 6 g/dL Low 6.4 - 8.3 g/dL [facility] Sodium [Moles/Vol] 142 mmol/L 136 - 145 mmol/L [facility] Urea nitrogen [Mass/Vol] 36 mg/dL High 8 - 21 mg/dL [facility] ED Nursing Noteon 06-13-2024 ED Nursing Note Pt presents for abdominal pain starting yesterday. States he vomited earlier today. Denies diarrhea. Also having loss of appetite. Denies urinary symptoms. Also having swelling in BLE x2 weeks. Hx CHF. +fatigue Normal [facility] ED Provider Noteon ED Provider Note Normal [facility] HIGH SENSITIVITY TROPONIN, S ERIAL BASELINEon 06-13-2024 TROPONIN HIGH SENSITIVITY BASELINE 50 ng/L High <=35 [facility] Comment on above: Performed By: #### L AB129, [id number], LAB17, [id number], LAB99 ####Software Designer: LESLEE HERNANDEZ ([id number])[facility] ([facility])[address] [place] [address] HIGH SENSITIVITY TROPONIN, S ERIAL, SECOND TESTon 06-13-2024 TROPONIN HS DELTA, BASELINE TO SECOND 3 ng/L Normal <=2 [facility] Comment on above: Result Comment: This specimen [...] clinical guidance. Performed By: #### L [id number], [id number] ####Software Designer: LESLEE HERNANDEZ ([id number])[facility] ([facility])[address] TROPONIN HS, SERIAL REFLEX, TEST TWO 53 ng/L High <=35 [facility] Comment on above: Performed By: #### L AB103, [id number] ####Software Designer: LESLEE HERNANDEZ ([id number])[facility] ([facility])[address] HIGH SENSITIVITY TROPONIN, S ERIAL, THIRD TESTon 06-13-2024 TROPONIN HS DELTA, SECOND TO THIRD -4 ng/L Normal <=2 [facility] Comment on above: Result Comment: This specimen [...] Inpatient algorithms. Performed By: #### L AB15, [id number], [id number] ####Software Designer: LESLEE HERNANDEZ ([id number])[facility] ([facility] TROPONIN HS, SERIAL REFLEX, TEST THREE 49 ng/L High <=35 [facility] Comment on above: Performed By: #### L AB15, [id number], [id number] ####Software Designer: LESLEE HERNANDEZ ([id number])[facility] ([facility])[address] [place] [address] LIPASEon 06-13-2024 Lipase [Catalytic activity/Vol] 21 U/L Normal <55 [facility] Comment on above: Performed By: #### L [id number], [id number], LAB17, [id number], LAB99 ####Software Designer: LESLEE HERNANDEZ ([id number])[facility] ([facility])[address] [place] [address] Laboratory - Chemistry and C hemistry - challengeon 06-13-2024 Magnesium [Mass/Vol] 2 mg/dL 1.6 - 2 .6 mg/dL [facility] Magnesium [Mass/Vol] 2.6 mg/dL 1.6 - 2 .6 mg/dL [facility] Comment on above: TC Potential interference from hemolysis TSH Qn 2.79 m[IU]/L [facility] Lipase [Catalytic activity/Vol] 21 U/L NINF - 55 U/L [facility] Lipase [Catalytic activity/V ol]on 06-13-2024 Interpretation and review of laboratory results Normal [facility] MAGNESIUMon 06-13-2024 Magnesium [Mass/Vol] 2.0 mg/dL Normal 1.6-2.6 [facility] Comment on above: Result Comment: ORDE R COMMENTS:Higher values can be expected in females during menses. Performed By: #### L AB15, [id number], [id number] ####Software Designer: LESLEE HERNANDEZ ([id number])[facility] ([facility])[address] Magnesium [Mass/Vol] 2.6 mg/dL Normal 1.6-2.6 [facility] Comment on above: Result Comment: TCPo tential interference from hemolysisORDER COMMENTS:Higher values can be expected in females during menses. Performed By: #### L AB103, [id number] ####Software Designer: LESLEE HERNANDEZ ([id number])[facility] ([facility])[address] Magnesium [Mass/Vol]on 06-13 Interpretation and review of laboratory results Normal [facility] Higher values can be expected in females during menses. [facility] Interpretation and review of laboratory results Normal [facility] Higher values can be expected in females during menses. [facility] NT PRO BNPon 06-13-2024 Natriuretic peptide B (Bld) [Mass/Vol] 97640 pg/mL High <125 [facility] Comment on above: Performed By: #### L AB129, [id number], LAB17, [id number], LAB99 ####Software Designer: LESLEE HERNANDEZ ([id number])[facility] ([facility])[address] [place] [address] Natriuretic peptide B [Mass/ Vol]on 06-13-2024 Interpretation and review of laboratory results Abnormal [facility] Natriuretic peptide B (Bld) [Mass/Vol] 98207 pg/mL High NINF - 125 pg/mL [facility] No Panel Informationon 06-13 Interpretation and review of laboratory results Abnormal [facility] Troponin HS Delta, Second to Third -4 ng/L NINF - 2 ng/L [facility] Comment on above: This specimen was co [...] 49 ng/L High NINF - 35 ng/L [facility] Interpretation and review of laboratory results Abnormal [facility] Troponin HS Delta, Baseline to Second 3 ng/L NINF - 2 ng/L [facility] Comment on above: This specimen was co [...] 53 ng/L High NINF - 35 ng/L [facility] Interpretation and review of laboratory results Abnormal [facility] Troponin HS, Serial Baseline 50 ng/L High NINF - 35 ng/L [facility] THYROID STIMULATING HORMONEo n 06-13-2024 THYROID STIMULATING HORMONE 2.79 uIU/mL Normal 0.35-4.94 [facility] Comment on above: Performed By: #### L AB129, [id number], LAB17, [id number], LAB99 ####Software Designer: LESLEE HERNANDEZ ([id number])[facility] ([facility])[address] [place] [address] TSH Qnon 06-13-2024 Interpretation and review of laboratory results Normal [facility] XR Chest Single viewon 06-13 Cardiomegaly with pulmonary vascular congestion. No focal consolidation identified. Report Dictated on Electronically Signed By: Giovani Santacruz MD Electronically Signed Date/Time: 06/13/2024 2:56 PM [facility] [employer] Patient Name: CARLO MEDINA : 1980 [...] change of the thoracic spine is noted. [facility] Giovani Santacruz MD - 06/13/2024 Patient Name: [facility] MEDINA : 1980 [id number] Exam Date/Time: 06/13/2024 14:37 Procedure: XR CHEST [...] Electronically Signed Date/Time: 06/13/2024 2:56 PM EST [facility] [employer] Radiology Study observation (narrative) [facility] [employer] XR Chest Single viewOrdered By: Giovani Santacruz on 06-13-2024 [facility] [employer] Work Phone: 36on 06-10-2024 36 Normal [facility] [employer] System [facility] 36 Pt called in stating he's been having stomach pains on and off yesterday and wants to know what he should do. He also states he is still having swelling in his feet and ankles. Normal [facility] 29on 06-08-2024 29 Addended by: RADHA HERNANDEZ on: 06/08/2024 12:19 PM Modules accepted: Orders Normal [facility] BASIC METABOLIC PANELon 12--2023 Anion gap [Moles/Vol] 7 mmol/L Normal 3-13 [facility] Comment on above: Performed By: #### L AB15, LAB20 ####Software Designer: NICOLE BOWERS ([id number])[facility]ENTER[facility]on RODRIGESKAMALJIT RITTMAN (SWRLAB)[address] Calcium [Mass/Vol] 9.2 mg/dL Normal 8.4-10.2 [facility] Comment on above: Performed By: #### L AB15, LAB20 ####Software Designer: NICOLE BOWERS ([id number])[facility]ENTERKeyon RODRIGESKAMALJIT RITTMAN (SWRL[facility])[address] Chloride [Moles/Vol] 114 mmol/L High 98-107 [facility] Comment on above: Performed By: #### L AB15, LAB20 ####Software Designer: NICOLE BOWERS ([id number])[facility]ENTERKeyon RODRIGESKAMALJIT RITTMAN (SWRLAB)[address] CO2 [Moles/Vol] 23 mmol/L Normal 22-29 [facility] Comment on above: Performed By: #### L AB15, LAB20 ####Software Designer: NICOLE BOWERS ([id number])[facility]ENTERKeyon RODRIGESKAMALJIT RITTMAN (SWRLAB)[address] [place] [address] [place] Creatinine [Mass/Vol] 2.03 mg/dL High 0.72-1.25 [facility] Comment on above: Performed By: #### L AB15, LAB20 ####Software Designer: NICOLE BOWERS ([id number])[facility]ENTERKeyon RODRIGESKAMALJIT RITTMAN (SWRLAB)[address] [place] [address] [place] GLOMERULAR FILTRATION RATE ML/MIN/1.73 SQ M.PREDICTED 40.2 mL/min/1.73m*2 Low >60.0 [facility] Comment on above: Result Comment: Calc ulation based on the Chronic Kidney Disease Epidemiology Collaboration (CKD-EPI) equation refit without adjustment for race Performed By: #### L AB15, LAB20 ####Software Designer: NICOLE BOWERS ([id number])[facility] CENTERKeyon FLOREZTMAN (SWRLAB)[address] [place] [address] Glucose [Mass/Vol] 123 mg/dL High 74-100 [facility] Comment on above: Performed By: #### L AB15, LAB20 ####Software Designer: NICOLE BOWERS ([id number])[facility]ENTERKeyon FLOREZTMAN (SWRLAB)[address] [place] [address] Potassium [Moles/Vol] 5.5 mmol/L High 3.5-5.1 [facility] Comment on above: Result Comment: [facility] potassium values may be up to 0.5 mmol/L lower than serum values. Performed By: #### L AB15, LAB20 ####Software Designer: NICOLE BOWERS ([id number])[facility]ENTERKeyon FLOREZTMAN (SWRLAB)[address] [place] [address] Sodium [Moles/Vol] 144 mmol/L Normal 136-145 [facility] Comment on above: Performed By: #### L AB15, LAB20 ####Software Designer: NICOLE BOWERS ([id number])[facility]ENTERKeyon YEH RITTMAN (SWRLAB)[address] [place] [address] [place] Urea nitrogen [Mass/Vol] 35 mg/dL High 8-21 [facility] Comment on above: Performed By: #### L AB15, LAB20 ####Software Designer: NICOLE BOWERS ([id number])[facility]ENTERKeyon FLOREZTMAN (SWRLAB)[address] [place] [address] Basic metabolic 1998 panelon 12-10-2024 Anion gap [Moles/Vol] 7 mmol/L 3 - 13 mmol/L [facility] Calcium [Mass/Vol] 9.2 mg/dL 8.4 - 10. 2 mg/dL [facility] Chloride [Moles/Vol] 114 mmol/L High 98 - 10 7 mmol/L [facility] CO2 [Moles/Vol] 23 mmol/L 22 - 29 mmol/L [facility] Creatinine [Mass/Vol] 2.03 mg/dL High 0.72 - 1.25 mg/dL [facility] GFR/1.73 sq M.predicted (S/P/Bld) [Vol rate/Area] 40.2 mL/min Low - PINF [facility] Comment on above: Calculation based on the Chronic Kidney Disease Epidemiology Collaboration (CKD-EPI) equation refit without adjustment for race Glucose [Mass/Vol] 123 mg/dL High 74 - 100 mg/dL [facility] Potassium [Moles/Vol] 5.5 mmol/L High 3.5 - 5.1 mmol/L [facility] Comment on above: Plasma potassium heidi ues may be up to 0.5 mmol/L lower than serum values. Sodium [Moles/Vol] 144 mmol/L 136 - 145 mmol/L [facility] Urea nitrogen [Mass/Vol] 35 mg/dL High 8 - 21 mg/dL [facility] HEPATIC FUNCTION PANELon Albumin [Mass/Vol] 3.4 g/dL Low 3.5-5.0 [facility] Comment on above: Performed By: #### L AB15, LAB20 ####Software Designer: NICOLE BOWERS ([id number])[facility] [employer] (SWRLAB)[address] [place] [address] ALP [Catalytic activity/Vol] 128 U/L Normal 40-150 [facility] Comment on above: Performed By: #### L AB15, LAB20 ####Software Designer: NICOLE BOWERS ([id number])[facility] [employer]TMAN (SWRLAB)[address] ALT [Catalytic activity/Vol] 146 U/L High <40 [facility] Comment on above: Performed By: #### L AB15, LAB20 ####Software Designer: NICOLE BOWERS ([id number])[facility]ENTERKeyon YEH RITTMAN (SWRLAB)[address] [place] [address] AST [Catalytic activity/Vol] 51 U/L High <34 [facility] Comment on above: Performed By: #### L AB15, LAB20 ####Software Designer: NICOLE BOWERS ([id number])[facility]ENTERKeyon YEH RITTMAN (SWRLAB)[address] [place] [address] Bilirubin [Mass/Vol] 1.7 mg/dL High <1.2 [facility] Comment on above: Performed By: #### L AB15, LAB20 ####Software Designer: NICOLE BOWERS ([id number])[facility]ENTERKeyon YEH RITTMAN (SWRL[facility])[address] [place] [address] Bilirubin.indirect [Mass/Vol] 0.7 mg/dL High <0.5 [facility] Comment on above: Performed By: #### L AB15, LAB20 ####Software Designer: NICOLE BOWERS ([id number])[facility]ENTERKeyon FLOREZTMAN (SWRLAB)[address] [place] [address] Protein [Mass/Vol] 6.2 g/dL Low 6.4-8.3 [facility] Comment on above: Result Comment: Seru m protein values are higher than plasma values. Samples from recumbent persons are lower by up to 0.5 g/dL as compared to ambulatory persons. After 60 years values are lower by up to 0.2 g/dL. Performed By: #### L AB15, LAB20 ####Software Designer: NICOLE BOWERS ([id number])[facility]ENTERKeyon YEH [employer]IT[employer]AN (SWRLAB)[address] [place] [address] Hepatic function 2000 panelo n 06-08-2024 Albumin [Mass/Vol] 3.4 g/dL Low 3.5 - 5.0 g/dL [facility] ALP [Catalytic activity/Vol] 128 U/L 40 - 150 U/L [facility] ALT [Catalytic activity/Vol] 146 U/L High NINF - 40 U/L [facility] AST [Catalytic activity/Vol] 51 U/L High [facility] - 34 U/L [facility] Bilirubin [Mass/Vol] 1.7 mg/dL High [facility] - 1.2 mg/dL [facility] Bilirubin.conjugated [Mass/Vol] 0.7 mg/dL High [facility] - 0.5 mg/dL [facility] Protein [Mass/Vol] 6.2 g/dL Low 6.4 - 8.3 g/dL [facility] Comment on above: Serum protein values are higher than plasma values. Samples from recumbent persons are lower by up to 0.5 g/dL as compared to ambulatory persons. After 60 years values are lower by up to 0.2 g/dL. No Panel Informationon 06-08 Interpretation and review of laboratory results Abnormal [facility] Progress Noteon 06-08-2024 Progress Note Normal [facility] 36on 06-07-2024 36 Patient unable to pa y the 50% at time of appt due to declined hcap and no health insurance. [facility] 36on 06-04-2024 36 Spoke with the patient and he does not have health insurance nor does he qualify for medicaid or hospital judie per his girlfriend. He has a follow-up appt with cardio on 2023. I did give them the phone number for Teri Santos. [facility] 36 Please contact patient to schedule. [facility] 36on 06-03-2024 36 [facility] 36 S: Patient admitted to: [facility] 05/28/24 B: Discharged on : 06/01/24 A: Hospital follow up call initiated to discuss any medication changes, follow up appointments and discharge instructions: Metabolic acidosis R: No contact x 1 at : [phone] [facility] ED Nursing Noteon 06-03-2024 ED Nursing Note This RN asked if pt wanted to come back into triage to have lucrecia wrap placed. Significant other said, I'll put it on. Pt and significant other left. Normal [facility] ED Nursing Note Pt presents to ED fo r c/o Bilateral leg swelling since yesterday and was recently diagnosed and admitted for CHF and stage 3 kidney disease Normal [facility] ED Provider Noteon 4 ED Provider Note Normal [facility] 36on 06-02-2024 36 Normal [facility] [id number] 06-01-2024 [id number] Labs drawn and given to More Evans at pts bedside Normal [facility] CBC W Auto Differential pane l (Bld)on 06-01-2024 Basophils (Bld) [#/Vol] 0 10*3/uL 0.0 - 0.2 10*3/uL [facility] Basophils/100 WBC (Bld) 0.1 % 0.0 - 2.0 % [facility] Eosinophils (Bld) [#/Vol] 0 10*3/uL 0.0 - 0.5 10*3/uL [facility] Eosinophils/100 WBC (Bld) 0.3 % 0.0 - 6.0 % [facility] Erythrocyte distribution width (RBC) [Ratio] 14.1 % 11.5 - 15.0 % [facility] Hematocrit (Bld) [Volume fraction] 46.3 % 40.0 - 52.0 % [facility] Hemoglobin (Bld) [Mass/Vol] 14.8 g/dL 13.0 - 18.0 g/dL [facility] Immature granulocytes (Bld) [#/Vol] 0 10*3/uL NINF - 0.1 10*3/uL [facility] Immature granulocytes/100 WBC (Bld) 0.3 % 0.0 - 2.0 % [facility] Interpretation and review of laboratory results Abnormal [facility] Lymphocytes (Bld) [#/Vol] 1.9 10*3/uL 1.0 - 4.3 10*3/uL [facility] Lymphocytes/100 WBC (Bld) 28.7 % 15.0 - 45.0 % [facility] MCH (RBC) [Entitic mass] 31.9 pg 26.0 - 34.0 pg [facility] MCHC (RBC) [Mass/Vol] 32 % 30.5 - 36.0 % [facility] MCV (RBC) [Entitic vol] 99.8 fL High 77.0 - 99.0 fL [facility] Monocytes (Bld) [#/Vol] 0.5 10*3/uL 0.0 - 0.9 10*3/uL [facility] Monocytes/100 WBC (Bld) 7.2 % 5.0 - 13.0 % [facility] Neutrophils (Bld) [#/Vol] 4.2 10*3/uL 1.8 - 7.5 10*3/uL [facility] Neutrophils/100 WBC (Bld) 63.4 % 38.0 - 82.0 % [facility] Nucleated RBC/100 WBC (Bld) [Ratio] 0 % [facility] Platelet mean volume (Bld) [Entitic vol] 10.5 fL 9.0 - 12.7 fL [facility] Platelets (Bld) [#/Vol] 200 10*3/uL 140 - 440 10*3/uL [facility] RBC (Bld) [#/Vol] 4.64 10*6/uL 4.40 - 5.9 0 10*6/uL [facility] WBC (Bld) [#/Vol] 6.7 10*3/uL 3.6 - 10.7 10*3/uL [facility] CBC WITH AUTO DIFFERENTIALon 06-01-2024 Basophils (Bld) [#/Vol] 0.0 10*3/uL Normal 0.0-0.2 [facility] Comment on above: Performed By: #### L [id number] ####Software Designer: LESLEE HERNANDEZ ([id number])[facility] ([facility])[address] [place] [address] Basophils/100 WBC (Bld) 0.1 % Normal 0.0-2.0 [facility] Comment on above: Performed By: #### L [id number] ####Software Designer: LESLEE HERNANDEZ ([id number])[facility] (SB[facility])[address] Eosinophils (Bld) [#/Vol] 0.0 10*3/uL Normal 0.0-0.5 [facility] Comment on above: Performed By: #### L [id number] ####Software Designer: LESLEE HERNANDEZ ([id number])[facility] ([facility])[address] [place] [address] [place] Eosinophils/100 WBC (Bld) 0.3 % Normal 0.0-6.0 [facility] Comment on above: Performed By: #### L [id number] ####Software Designer: LESLEE HERNANDEZ ([id number])[facility]A [facility] ([facility])[address] Erythrocyte distribution width (RBC) [Ratio] 14.1 % Normal 11.5-15.0 [facility] Comment on above: Performed By: #### L [id number] ####Software Designer: LESLEE TURKTYRONE ([id number])[facility]A [facility] ([facility])[address] Hematocrit (Bld) [Volume fraction] 46.3 % Normal 40.0-52.0 [facility] Comment on above: Performed By: #### L [id number] ####Software Designer: LESLEE TURKTYRONE ([id number])[facility] ([facility])[address] Hemoglobin (Bld) [Mass/Vol] 14.8 g/dL Normal 13.0-18.0 [facility] Comment on above: Performed By: #### L [id number] ####Software Designer: LESLEE HERNANDEZ ([id number])[facility] ([facility])[address] [place] [address] IMMATURE GRANS % 0.3 % Normal 0.0-2.0 [facility] Comment on above: Performed By: #### L [id number] ####Software Designer: LESLEE HERNANDEZ ([id number])[facility] ([facility])[address] IMMATURE GRANS ABSOLUTE 0.0 10*3/uL Normal <0.1 [facility] Comment on above: Performed By: #### L [id number] ####Software Designer: LESLEE HERNANDEZ ([id number])[facility] ([facility])[address] Lymphocytes (Bld) [#/Vol] 1.9 10*3/uL Normal 1.0-4.3 [facility] Comment on above: Performed By: #### L [id number] ####Software Designer: LESLEE HERNANDEZ ([id number])[facility]A [facility] HOSPITALMarguerite (SBHLAB)[address] Lymphocytes/100 WBC (Bld) 28.7 % Normal 15.0-45.0 [facility] Comment on above: Performed By: #### L [id number] ####Software Designer: LESLEE HERNANDEZ ([id number])[facility] (SBHLAB)[address] MCH (RBC) [Entitic mass] 31.9 pg Normal 26.0-34.0 [facility] Comment on above: Performed By: #### L [id number] ####Software Designer: LESLEE TURKTYRONE ([id number])[facility] (SBHLAB)[address] [place] [address] MCHC 32.0 % Normal 30.5-36.0 [facility] Comment on above: Performed By: #### L [id number] ####Software Designer: LESLEE HERNANDEZ ([id number])[facility] (SBHLAB)[address] [place] [address] MCV (RBC) [Entitic vol] 99.8 fL High 77.0-99.0 [facility] Comment on above: Performed By: #### L [id number] ####Software Designer: LESLEE HERNANDEZ ([id number])[facility] ([facility])[address] [place] [address] Monocytes (Bld) [#/Vol] 0.5 10*3/uL Normal 0.0-0.9 [facility] Comment on above: Performed By: #### L [id number] ####Software Designer: LESLEE HERNANDEZ ([id number])[facility] (SBHLAB)[address] Monocytes/100 WBC (Bld) 7.2 % Normal 5.0-13.0 [facility] Comment on above: Performed By: #### L [id number] ####Software Designer: LESLEE HERNANDEZ ([id number])[facility] [place] (SBHLAB)[address] NEUTROPHILS ABSOLUTE 4.2 10*3/uL Normal 1.8-7.5 [facility] Comment on above: Performed By: #### L [id number] ####Software Designer: LESLEE HERNANDEZ ([id number])[facility] [place] (SBHLAB)[address] Neutrophils/100 WBC (Bld) 63.4 % Normal 38.0-82.0 [facility] Comment on above: Performed By: #### L [id number] ####Software Designer: LESLEE HERNANDEZ ([id number])[facility]A [facility] (SBHL[facility])[address] NRBC 0.0 /100 WBCs Normal 0.0-2.0 [facility] Comment on above: Performed By: #### L [id number] ####Software Designer: LESLEE HERNANDEZ ([id number])[facility]A [place] ([facility]HL[facility])[address] Platelet mean volume (Bld) [Entitic vol] 10.5 fL Normal 9.0-12.7 [facility] Comment on above: Performed By: #### L [id number] ####Software Designer: LESLEE HERNANDEZ ([id number])[facility] [place] (SBHLAB)[address] Platelets (Bld) [#/Vol] 200 10*3/uL Normal 140-440 [facility] Comment on above: Performed By: #### L [id number] ####Software Designer: LESLEE HERNANDEZ ([id number])[facility] [place] (SBHL[facility])[address] RBC (Bld) [#/Vol] 4.64 10*6/uL Normal 4.40-5.90 [facility] Comment on above: Performed By: #### L [id number] ####Software Designer: LESLEE HERNANDEZ ([id number])[facility] (SBHLAB)[address] WBC (Bld) [#/Vol] 6.7 10*3/uL Normal 3.6-10.7 [facility] Comment on above: Performed By: #### L [id number] ####Software Designer: LESLEE HERNANDEZ ([id number])[facility] (SBHLAB)[address] COMPREHENSIVE METABOLIC PANE Ming 06-01-2024 Albumin [Mass/Vol] 3.1 g/dL Low 3.5-5.0 [facility] Comment on above: Performed By: #### L [id number] ####Software Designer: LESLEE HERNANDEZ ([id number])[facility] (SB[facility] ALP [Catalytic activity/Vol] 103 U/L Normal 40-150 [facility] Comment on above: Performed By: #### L [id number] ####Software Designer: LESLEE HERNANDEZ ([id number])[facility] (HLAB)[address] ALT [Catalytic activity/Vol] 170 U/L High <40 [facility] Comment on above: Performed By: #### L [id number] ####Software Designer: LESLEE HERNANDEZ ([id number])[facility] (SBHLAB)[address] Anion gap [Moles/Vol] 7 mmol/L Normal 3-13 [facility] Comment on above: Performed By: #### L [id number] ####Software Designer: LESLEE HERNANDEZ ([id number])[facility] (SBHLAB)[address] AST [Catalytic activity/Vol] 47 U/L High <34 [facility] Comment on above: Performed By: #### L [id number] ####Software Designer: LESLEE HERNANDEZ ([id number])[facility] (SBHLAB)[address] Bilirubin [Mass/Vol] 1.1 mg/dL Normal <1.2 [facility] Comment on above: Performed By: #### L [id number] ####Software Designer: LESLEE TURKTYRONE ([id number])[facility] [place] (SBHLAB)[address] Calcium [Mass/Vol] 8.7 mg/dL Normal 8.4-10.2 [facility] Comment on above: Performed By: #### L [id number] ####Software Designer: LESLEE TURKTYRONE ([id number])[facility] [place] (SBHLAB)[address] Chloride [Moles/Vol] 109 mmol/L High 98-107 [facility] Comment on above: Performed By: #### L [id number] ####Software Designer: LESLEE HERNANDEZ ([id number])[facility] [place] (SBHLAB)[address] CO2 [Moles/Vol] 22 mmol/L Normal 22-29 [facility] Comment on above: Performed By: #### L [id number] ####Software Designer: LESLEE HERNANDEZ ([id number])[facility] [place] (SBHLAB)[address] Creatinine [Mass/Vol] 2.05 mg/dL High 0.72-1.25 [facility] Comment on above: Performed By: #### L [id number] ####Software Designer: LESLEE HERNANDEZ ([id number])[facility] [place] (SBHLAB)[address] GLOMERULAR FILTRATION RATE ML/MIN/1.73 SQ M.PREDICTED 39.7 mL/min/1.73m*2 Low >60.0 [facility] Comment on above: Result Comment: Calc ulation based on the Chronic Kidney Disease Epidemiology Collaboration (CKD-EPI) equation refit without adjustment for race Performed By: #### L [id number] ####Software Designer: LESLEE HERNANDEZ ([id number])[facility] (SBHLAB)[address] Glucose [Mass/Vol] 113 mg/dL High 74-100 [facility] Comment on above: Performed By: #### L [id number] ####Software Designer: LESLEE HERNANDEZ ([id number])[facility] (SBHLAB)[address] Potassium [Moles/Vol] 4.7 mmol/L Normal 3.5-5.1 [facility] Comment on above: Result Comment: [facility] potassium values may be up to 0.5 mmol/L lower than serum values. Performed By: #### L [id number] ####Software Designer: LESLEE HERNANDEZ ([id number])[facility] (SBHLAB)[address] Protein [Mass/Vol] 5.5 g/dL Low 6.4-8.3 [facility] Comment on above: Performed By: #### L [id number] ####Software Designer: LESLEE HERNANDEZ ([id number])[facility] (SBHLAB)[address] Sodium [Moles/Vol] 138 mmol/L Normal 136-145 [facility] Comment on above: Performed By: #### L [id number] ####Software Designer: LESLEE HERNANDEZ ([id number])[facility] (SBHLAB)[address] [place] [address] [place] Urea nitrogen [Mass/Vol] 37 mg/dL High 8-21 [facility] Comment on above: Performed By: #### L [id number] ####Software Designer: LESLEE HERNANDEZ ([id number])[facility] (SBHLAB)[address] Comprehensive metabolic 1998 panelon 06-01-2024 Albumin [Mass/Vol] 3.1 g/dL Low 3.5 - 5.0 g/dL [facility] ALP [Catalytic activity/Vol] 103 U/L 40 - 150 U/L [facility] ALT [Catalytic activity/Vol] 170 U/L High NINF - 40 U/L [facility] Anion gap [Moles/Vol] 7 mmol/L 3 - 13 mmol/L [facility] AST [Catalytic activity/Vol] 47 U/L High NINF - 34 U/L [facility] Bilirubin [Mass/Vol] 1.1 mg/dL NINF - 1.2 mg/dL [facility] Calcium [Mass/Vol] 8.7 mg/dL 8.4 - 10. 2 mg/dL [facility] Chloride [Moles/Vol] 109 mmol/L High 98 - 10 7 mmol/L [facility] CO2 [Moles/Vol] 22 mmol/L 22 - 29 mmol/L [facility] Creatinine [Mass/Vol] 2.05 mg/dL High 0.72 - 1.25 mg/dL [facility] GFR/1.73 sq M.predicted (S/P/Bld) [Vol rate/Area] 39.7 mL/min Low - PINF [facility] Comment on above: Calculation based on the Chronic Kidney Disease Epidemiology Collaboration (CKD-EPI) equation refit without adjustment for race Glucose [Mass/Vol] 113 mg/dL High 74 - 100 mg/dL [facility] Interpretation and review of laboratory results Abnormal [facility] Potassium [Moles/Vol] 4.7 mmol/L 3.5 - 5.1 mmol/L [facility] Comment on above: Plasma potassium heidi ues may be up to 0.5 mmol/L lower than serum values. Protein [Mass/Vol] 5.5 g/dL Low 6.4 - 8.3 g/dL [facility] Sodium [Moles/Vol] 138 mmol/L 136 - 145 mmol/L [facility] Urea nitrogen [Mass/Vol] 37 mg/dL High 8 - 21 mg/dL [facility] Consulton 06-01-2024 Consult Normal [facility] MR Abdomen WO contraston 1. Limited study [...] Electronically Signed Date/Time: 06/01/2024 4:18 PM EST [facility] Patient Name: CARLO MEDINA : 1980 [...] Lymphadenopathy: None Other: Trace bilateral pleural effusions. [facility] Shane Galarza MD - 06/01/2024 Patient Name: CARLO MEDINA : 1980 Exam [...] MD Electronically Signed Date/Time: 06/01/2024 4:[address] [facility] Radiology Study observation (narrative) [facility] Nursing Noteon 06-01-2024 Nursing Note Normal [facility] Nursing Note Normal [facility] Progress Noteon 06-01-2024 Progress Note Normal [facility] Progress Note Normal [facility] [id number] 05-31-2024 [id number] Normal [facility] Nursing Noteon 05-31-2024 Nursing Note Normal [facility] Progress Noteon 05-31-2024 [facility] Progress [facility] Progress [facility] Normal [facility] US ABDOMEN COMPLETEon 2023 US ABDOMEN COMPLETE Normal [facility] US Abdomenon 05-31-2024 1. Gallbladder wall thickening [...] MD Electronically Signed Date/Time: 05/31/2024 4:20 PM [facility] [employer] [facility] Patient Name: CARLO MEDINA : 1980 [...] Ultrasound Melendez sign is positive. Per the isotope technologist, the sonographic Melendez's sign was negative. [...] cava: Visualized portions are normal Ascites: None [facility] Joel Hi MD - 05/31/2024 [facility] Name: [facility] 1980 [id number] Exam Date/Time: 05/31/2024 15:37 Procedure: US ABDOMEN [...] Ultrasound Melendez sign is positive. Per the isotope technologist, the sonographic Melendez's sign was negative. [...] Electronically Signed Date/Time: 05/31/2024 4:20 PM EST [facility] Radiology Study observation (narrative) [facility] US AbdomenOrdered By: Layton Hi on 05-31-2024 [facility] Work Phone: 25-hydroxyvitamin D3 [Mass/V ol]on 05-30-2024 Interpretation and review of laboratory results Abnormal [facility] Therapy is based on measurement of Total 25-OHD with the following classification levels: Less than 20 ng/mL: Indicative of Vit D deficiency 20-30 ng/mL: Suggests Vit D insufficiency Optimal: Greater than or equal to 30 ng/mL Test performed by [facility] Competitive Immunoassay, measuring Total Vitamin D, not individual fractions. [facility] 30on 05-30-2024 30 Normal [facility] 36on 05-30-2024 36 Normal [facility] CBC W Auto Differential pane l (Bld)on 05-30-2024 Basophils (Bld) [#/Vol] 0 10*3/uL 0.0 - 0.2 10*3/uL [facility] Basophils/100 WBC (Bld) 0.3 % 0.0 - 2.0 % [facility] Eosinophils (Bld) [#/Vol] 0.1 10*3/uL 0.0 - 0.5 10*3/uL [facility] Eosinophils/100 WBC (Bld) 0.6 % 0.0 - 6.0 % [facility] Erythrocyte distribution width (RBC) [Ratio] 14.1 % 11.5 - 15.0 % [facility] Hematocrit (Bld) [Volume fraction] 44.7 % 40.0 - 52.0 % [facility] Hemoglobin (Bld) [Mass/Vol] 14.5 g/dL 13.0 - 18.0 g/dL [facility] Immature granulocytes (Bld) [#/Vol] 0 10*3/uL NINF - 0.1 10*3/uL [facility] Immature granulocytes/100 WBC (Bld) 0.3 % 0.0 - 2.0 % [facility] Interpretation and review of laboratory results Normal [facility] Lymphocytes (Bld) [#/Vol] 1.7 10*3/uL 1.0 - 4.3 10*3/uL [facility] Lymphocytes/100 WBC (Bld) 22.3 % 15.0 - 45.0 % [facility] MCH (RBC) [Entitic mass] 31.8 pg 26.0 - 34.0 pg [facility] MCHC (RBC) [Mass/Vol] 32.4 % 30.5 - 36.0 % [facility] MCV (RBC) [Entitic vol] 98 fL 77.0 - 99.0 fL [facility] Monocytes (Bld) [#/Vol] 0.7 10*3/uL 0.0 - 0.9 10*3/uL [facility] Monocytes/100 WBC (Bld) 8.9 % 5.0 - 13.0 % [facility] Neutrophils (Bld) [#/Vol] 5.2 10*3/uL 1.8 - 7.5 10*3/uL [facility] Neutrophils/100 WBC (Bld) 67.6 % 38.0 - 82.0 % [facility] Nucleated RBC/100 WBC (Bld) [Ratio] 0.3 % [facility] Platelet mean volume (Bld) [Entitic vol] 10.6 fL 9.0 - 12.7 fL [facility] Platelets (Bld) [#/Vol] 204 10*3/uL 140 - 440 10*3/uL [facility] RBC (Bld) [#/Vol] 4.56 10*6/uL 4.40 - 5.9 0 10*6/uL [facility] WBC (Bld) [#/Vol] 7.7 10*3/uL 3.6 - 10.7 10*3/uL [facility] CBC WITH AUTO DIFFERENTIALon 05-30-2024 Basophils (Bld) [#/Vol] 0.0 10*3/uL Normal 0.0-0.2 [facility] Comment on above: Performed By: #### L [id number] ####Software Designer: LESLEE HERNANDEZ ([id number])[facility] (SBAB[facility] [place] [address] Basophils/100 WBC (Bld) 0.3 % Normal 0.0-2.0 [facility] Comment on above: Performed By: #### L [id number] ####Software Designer: LESLEE HERNANDEZ ([id number])[facility] (SBAB)[address] Eosinophils (Bld) [#/Vol] 0.1 10*3/uL Normal 0.0-0.5 [facility] Comment on above: Performed By: #### L [id number] ####Software Designer: LESLEE HERNANDEZ ([id number])[facility] [place] (SBHLAB)[address] [place] [address] Eosinophils/100 WBC (Bld) 0.6 % Normal 0.0-6.0 [facility] Comment on above: Performed By: #### L [id number] ####Software Designer: LESLEE HERNANDEZ ([id number])[facility] (SBHLAB)[address] [place] [address] [place] Erythrocyte distribution width (RBC) [Ratio] 14.1 % Normal 11.5-15.0 [facility] Comment on above: Performed By: #### L [id number] ####Software Designer: LESLEE HERNANDEZ ([id number])[facility] (SBHLAB)[address] Hematocrit (Bld) [Volume fraction] 44.7 % Normal 40.0-52.0 [facility] Comment on above: Performed By: #### L [id number] ####Software Designer: LESLEE TURKTYRONE ([id number])[facility] (SB[facility]AB)[address] Hemoglobin (Bld) [Mass/Vol] 14.5 g/dL Normal 13.0-18.0 [facility] Comment on above: Performed By: #### L [id number] ####Software Designer: LESLEE HERNANDEZ ([id number])[facility] (SBAB)[address] [place] [address] IMMATURE GRANS % 0.3 % Normal 0.0-2.0 [facility] Comment on above: Performed By: #### L [id number] ####Software Designer: LESLEE HERNANDEZ ([id number])[facility] (SB[facility]AB)[address] IMMATURE GRANS ABSOLUTE 0.0 10*3/uL Normal <0.1 [facility] Comment on above: Performed By: #### L [id number] ####Software Designer: LESLEE HERNANDEZ ([id number])[facility] (SB[facility]AB)[address] [place] [address] Lymphocytes (Bld) [#/Vol] 1.7 10*3/uL Normal 1.0-4.3 [facility] Comment on above: Performed By: #### L [id number] ####Software Designer: LESLEE HERNANDEZ ([id number])[facility] (SBHLAB)[address] [place] [address] [place] Lymphocytes/100 WBC (Bld) 22.3 % Normal 15.0-45.0 [facility] Comment on above: Performed By: #### L [id number] ####Software Designer: LESLEE HERNANDEZ ([id number])[facility] (SBHLAB)[address] MCH (RBC) [Entitic mass] 31.8 pg Normal 26.0-34.0 [facility] Comment on above: Performed By: #### L [id number] ####Software Designer: LESLEE TURKTYRONE ([id number])[facility] [place] (SBHLAB)[address] MCHC 32.4 % Normal 30.5-36.0 [facility] Comment on above: Performed By: #### L [id number] ####Software Designer: LESLEE HERNANDEZ ([id number])[facility] [place] (SBHLAB)[address] MCV (RBC) [Entitic vol] 98.0 fL Normal 77.0-99.0 [facility] Comment on above: Performed By: #### L [id number] ####Software Designer: LESLEE HERNANDEZ ([id number])[facility] [place] (SBHLAB)[address] Monocytes (Bld) [#/Vol] 0.7 10*3/uL Normal 0.0-0.9 [facility] Comment on above: Performed By: #### L [id number] ####Software Designer: LESLEE HERNANDEZ ([id number])[facility] [place] (SBHLAB)[address] Monocytes/100 WBC (Bld) 8.9 % Normal 5.0-13.0 [facility] Comment on above: Performed By: #### L [id number] ####Software Designer: LESLEE HERNANDEZ ([id number])[facility] [place] (SBHLAB)[address] NEUTROPHILS ABSOLUTE 5.2 10*3/uL Normal 1.8-7.5 [facility] Comment on above: Performed By: #### L [id number] ####Software Designer: LESLEE HERNANDEZ ([id number])[facility] [place] (SBHLAB)[address] Neutrophils/100 WBC (Bld) 67.6 % Normal 38.0-82.0 [facility] Comment on above: Performed By: #### L [id number] ####Software Designer: LESLEE HERNANDEZ ([id number])[facility] [place] (SBHLAB)[address] NRBC 0.3 /100 WBCs Normal 0.0-2.0 [facility] Comment on above: Performed By: #### L [id number] ####Software Designer: LESLEE HERNANDEZ ([id number])[facility] [place] (SBHLAB)[address] Platelet mean volume (Bld) [Entitic vol] 10.6 fL Normal 9.0-12.7 [facility] Comment on above: Performed By: #### L [id number] ####Software Designer: LESLEE HERNANDEZ ([id number])[facility] [place] (SBHLAB)[address] Platelets (Bld) [#/Vol] 204 10*3/uL Normal 140-440 [facility] Comment on above: Performed By: #### L [id number] ####Software Designer: LESLEE HERNANDEZ ([id number])[facility] [place] (SBHLAB)[address] RBC (Bld) [#/Vol] 4.56 10*6/uL Normal 4.40-5.90 [facility] Comment on above: Performed By: #### L [id number] ####Software Designer: LESLEE HERNANDEZ ([id number])[facility] [place] (SBHLAB)[address] [place] [address] [place] WBC (Bld) [#/Vol] 7.7 10*3/uL Normal 3.6-10.7 [facility] Comment on above: Performed By: #### L [id number] ####Software Designer: LESLEE HERNANDEZ ([id number])[facility] [place] (SBHLAB)[address] COMPREHENSIVE METABOLIC PANE Ming 05-30-2024 Albumin [Mass/Vol] 3.1 g/dL Low 3.5-5.0 [facility] Comment on above: Performed By: #### L [id number] ####Software Designer: LESLEE HERNANDEZ ([id number])[facility] [place] (SBHLAB)[address] ALP [Catalytic activity/Vol] 108 U/L Normal 38-126 [facility] Comment on above: Performed By: #### L [id number] ####Software Designer: LESLEE HERNANDEZ ([id number])[facility] [place] (SBHLAB)[address] ALT [Catalytic activity/Vol] 160 U/L High 0-49 [facility] Comment on above: Performed By: #### L [id number] ####Software Designer: LESLEE HERNANDEZ ([id number])[facility] [place] (SBHLAB)[address] Anion gap [Moles/Vol] 6 mmol/L Normal 3-13 [facility] Comment on above: Performed By: #### L [id number] ####Software Designer: LESLEE HERNANDEZ ([id number])[facility] [place] (SBHLAB)[address] AST [Catalytic activity/Vol] 70 U/L High 15-46 [facility] Comment on above: Performed By: #### L [id number] ####Software Designer: LESLEE HERNANDEZ ([id number])[facility] [place] (SBHLAB)[address] Bilirubin [Mass/Vol] 1.1 mg/dL Normal 0.2-1.3 [facility] Comment on above: Performed By: #### L [id number] ####Software Designer: LESLEE HERNANDEZ ([id number])[facility] [place] (SBHLAB)[address] Calcium [Mass/Vol] 8.4 mg/dL Normal 8.4-10.4 [facility] Comment on above: Performed By: #### L [id number] ####Software Designer: LESLEE HERNANDEZ ([id number])[facility] (SBHLAB)[address] Chloride [Moles/Vol] 114 mmol/L High 98-107 [facility] Comment on above: Performed By: #### L [id number] ####Software Designer: LESLEE HERNANDEZ ([id number])[facility]ENTER[facility] (SBHLAB)[address] CO2 [Moles/Vol] 17 mmol/L Low 22-30 [facility] Comment on above: Performed By: #### L [id number] ####Software Designer: LESLEE HERNANDEZ ([id number])[facility]ENTER[facility] (SBHLAB)[address] Creatinine [Mass/Vol] 1.88 mg/dL High 0.66-1.25 [facility] Comment on above: Performed By: #### L [id number] ####Software Designer: LESLEE HERNANDEZ ([id number])[facility]ENTER[facility] (SBHLAB)[address] GLOMERULAR FILTRATION RATE ML/MIN/1.73 SQ M.PREDICTED 44.1 mL/min/1.73m*2 Low >60.0 [facility] Comment on above: Result Comment: Calc ulation based on the Chronic Kidney Disease Epidemiology Collaboration (CKD-EPI) equation refit without adjustment for race Performed By: #### L [id number] ####Software Designer: LESLEE HERNANDEZ ([id number])[facility]ENTER[facility] [place] (SBHLAB)[address] [place] [address] [place] Glucose [Mass/Vol] 124 mg/dL High 70-100 [facility] Comment on above: Performed By: #### L [id number] ####Software Designer: LESLEE HERNANDEZ ([id number])[facility]ENTER[facility] [place] (SBHLAB)[address] [place] [address] [place] Potassium [Moles/Vol] 4.4 mmol/L Normal 3.5-5.1 [facility] Comment on above: Performed By: #### L [id number] ####Software Designer: LESLEE HERNANDEZ ([id number])[facility]ENTER[facility]on [facility] (SBHLAB)[address] Protein [Mass/Vol] 5.6 g/dL Low 6.3-8.2 [facility] Comment on above: Performed By: #### L [id number] ####Software Designer: LESLEE HERNANDEZ ([id number])[facility] ([facility])[address] Sodium [Moles/Vol] 136 mmol/L Normal 135-145 [facility] Comment on above: Performed By: #### L [id number] ####Software Designer: LESLEE HERNANDEZ ([id number])[facility] (SB[facility]AB)[address] Urea nitrogen [Mass/Vol] 42 mg/dL High 9-20 [facility] Comment on above: Performed By: #### L [id number] ####Software Designer: LESLEE HERNANDEZ ([id number])[facility] (SB[facility]AB)[address] Comprehensive metabolic 1998 panelon 05-30-2024 Albumin [Mass/Vol] 3.1 g/dL Low 3.5 - 5.0 g/dL [facility] ALP [Catalytic activity/Vol] 108 U/L 38 - 126 U/L [facility] ALT [Catalytic activity/Vol] 160 U/L High 0 - 49 U/L [facility] Anion gap [Moles/Vol] 6 mmol/L 3 - 13 mmol/L [facility] AST [Catalytic activity/Vol] 70 U/L High 15 - 46 U/L [facility] Bilirubin [Mass/Vol] 1.1 mg/dL 0.2 - 1 .3 mg/dL [facility] Calcium [Mass/Vol] 8.4 mg/dL 8.4 - 10. 4 mg/dL [facility] Chloride [Moles/Vol] 114 mmol/L High 98 - 10 7 mmol/L [facility] CO2 [Moles/Vol] 17 mmol/L Low 22 - 30 mmol/L [facility] Creatinine [Mass/Vol] 1.88 mg/dL High 0.66 - 1.25 mg/dL [facility] GFR/1.73 sq M.predicted (S/P/Bld) [Vol rate/Area] 44.1 mL/min Low - PINF [facility] Comment on above: Calculation based on the Chronic Kidney Disease Epidemiology Collaboration (CKD-EPI) equation refit without adjustment for race Glucose [Mass/Vol] 124 mg/dL High 70 - 100 mg/dL [facility] Interpretation and review of laboratory results Abnormal [facility] Potassium [Moles/Vol] 4.4 mmol/L 3.5 - 5.1 mmol/L [facility] Protein [Mass/Vol] 5.6 g/dL Low 6.3 - 8.2 g/dL [facility] Sodium [Moles/Vol] 136 mmol/L 135 - 145 mmol/L [facility] Urea nitrogen [Mass/Vol] 42 mg/dL High 9 - 20 mg/dL [facility] - Chemistry and C hemistry - challengeon 05-30-2024 25-hydroxyvitamin D3 [Mass/Vol] ng/mL Low 30 - 100 ng/mL [facility] Parathyrin.intact [Mass/Vol] 227.6 pg/mL High 7.5 - 53.5 pg/mL [facility] Nursing Noteon 05-30-2024 Nursing Note Normal [facility] Nursing Note Pt did not want to get stuck for labs and wanted to talk with daytime Dr about need for daily labs. Normal [facility] PHOSPHORUSon 05-30-2024 Phosphate [Mass/Vol] 4.7 mg/dL High 2.5-4.5 [facility] Comment on above: Performed By: #### L [id number] ####Software Designer: LESLEE HERNANDEZ ([id number])[facility] ([facility])[address] [place] [address] PTH INTACTon 05-30-2024 PTH, INTACT 227.6 pg/mL High 7.5-53.5 [facility] Comment on above: Performed By: #### L [id number], [id number] ####Software Designer: LESLEE HERNANDEZ ([id number])[facility] ([facility])[address] [place] [address] Parathyrin.intact [Mass/Vol] on 05-30-2024 Interpretation and review of laboratory results Abnormal [facility] Phosphate [Moles/Vol]on Interpretation and review of laboratory results Abnormal [facility] Phosphate [Mass/Vol] 4.7 mg/dL High 2.5 - 4 .5 mg/dL [facility] Progress Noteon 05-30-2024 Progress Note Normal [facility] VITAMIN D DEFICIENCY SCREENI NG (VIT D 25)on 05-30-2024 VIT D 25-OH, TOTAL <13 Low 30-100 [facility] Comment on above: Result Comment: ALEJANDRO Aleman COMMENTS:Therapy is based on measurement of Total 25-OHD with the following classification levels:Less than 20 ng/mL: Indicative of Vit D [id number] ng/mL: Suggests Vit D insufficiencyOptimal: Greater than or equal to 30 ng/mLTest performed by [facility] Competitive Immunoassay, measuring Total Vitamin D, not individual fractions. Performed By: #### L [id number], [id number] ####Software Designer: LESLEE HERNANDEZ ([id number])[facility] CENTERKeyon MCFADDENMarguerite (SB[facility])[address] [place] [address] CBC W Auto Differential pane l (Bld)Ordered By: Roberto Puckett on 05-29-2024 Basophils (Bld) [#/Vol] 0 10*3/uL 0.0 - 0.2 10*3/uL [facility] Basophils/100 WBC (Bld) 0.2 % 0.0 - 2.0 % [facility] Eosinophils (Bld) [#/Vol] 0 10*3/uL 0.0 - 0.5 10*3/uL [facility] Eosinophils/100 WBC (Bld) 0.3 % 0.0 - 6.0 % [facility] Erythrocyte distribution width (RBC) [Ratio] 14 % 11.5 - 15.0 % [facility] Hematocrit (Bld) [Volume fraction] 42.8 % 40.0 - 52.0 % [facility] Hemoglobin (Bld) [Mass/Vol] 13.5 g/dL 13.0 - 18.0 g/dL [facility] [employer] Immature granulocytes (Bld) [#/Vol] 0 10*3/uL NINF - 0.1 10*3/uL [facility] [employer] Immature granulocytes/100 WBC (Bld) 0.3 % 0.0 - 2.0 % [facility] Interpretation and review of laboratory results Abnormal [facility] Lymphocytes (Bld) [#/Vol] 1.6 10*3/uL 1.0 - 4.3 10*3/uL [facility] Lymphocytes/100 WBC (Bld) 25.8 % 15.0 - 45.0 % [facility] MCH (RBC) [Entitic mass] 31.8 pg 26.0 - 34.0 pg [facility] MCHC (RBC) [Mass/Vol] 31.5 % 30.5 - 36.0 % [facility] MCV (RBC) [Entitic vol] 100.9 fL High 77.0 - 99.0 fL [facility] Monocytes (Bld) [#/Vol] 0.4 10*3/uL 0.0 - 0.9 10*3/uL [facility] Monocytes/100 WBC (Bld) 5.9 % 5.0 - 13.0 % [facility] Neutrophils (Bld) [#/Vol] 4.3 10*3/uL 1.8 - 7.5 10*3/uL [facility] Neutrophils/100 WBC (Bld) 67.5 % 38.0 - 82.0 % [facility] Nucleated RBC/100 WBC (Bld) [Ratio] 0 % [facility] Platelet mean volume (Bld) [Entitic vol] 10.7 fL 9.0 - 12.7 fL [facility] Platelets (Bld) [#/Vol] 160 10*3/uL 140 - 440 10*3/uL [facility] RBC (Bld) [#/Vol] 4.24 10*6/uL Low 4.40 - 5.9 0 10*6/uL [facility] WBC (Bld) [#/Vol] 6.3 10*3/uL 3.6 - 10.7 10*3/uL [facility] CBC WITH AUTO DIFFERENTIALon 05-29-2024 Basophils (Bld) [#/Vol] 0.0 10*3/uL Normal 0.0-0.2 [facility] Comment on above: Performed By: #### L [id number] ####Software Designer: LESLEE HERNANDEZ ([id number])[facility] ([facility])[address] [place] [address] Basophils/100 WBC (Bld) 0.2 % Normal 0.0-2.0 [facility] Comment on above: Performed By: #### L [id number] ####Software Designer: LESLEE HERNANDEZ ([id number])[facility] ([facility])[address] Eosinophils (Bld) [#/Vol] 0.0 10*3/uL Normal 0.0-0.5 [facility] Comment on above: Performed By: #### L [id number] ####Software Designer: LESLEE TURKTYRONE ([id number])[facility]ENTERA [place] ([facility])[address] [place] [address] Eosinophils/100 WBC (Bld) 0.3 % Normal 0.0-6.0 [facility] Comment on above: Performed By: #### L [id number] ####Software Designer: LESLEE HERNANDEZ ([id number])[facility]ENTERA [place] ([facility]AB)[address] [place] [address] Erythrocyte distribution width (RBC) [Ratio] 14.0 % Normal 11.5-15.0 [facility] Comment on above: Performed By: #### L [id number] ####Software Designer: LSELEE HERNANDEZ ([id number])[facility]A [place] ([facility])[address] [place] [address] Hematocrit (Bld) [Volume fraction] 42.8 % Normal 40.0-52.0 [facility] Comment on above: Performed By: #### L [id number] ####Software Designer: LESLEE HERNANDEZ ([id number])[facility]ENTERA [place] ([facility])[address] [place] [address] Hemoglobin (Bld) [Mass/Vol] 13.5 g/dL Normal 13.0-18.0 [facility] Comment on above: Performed By: #### L [id number] ####Software Designer: LESLEE HERNANDEZ ([id number])[facility]A [place] ([facility])[address] IMMATURE GRANS % 0.3 % Normal 0.0-2.0 [facility] Comment on above: Performed By: #### L [id number] ####Software Designer: LESLEE HERNANDEZ ([id number])[facility]A [place] ([facility])[address] IMMATURE GRANS ABSOLUTE 0.0 10*3/uL Normal <0.1 [facility] Comment on above: Performed By: #### L [id number] ####Software Designer: LESLEE HERNANDEZ ([id number])[facility]ENTERA [facility] ([facility])[address] Lymphocytes (Bld) [#/Vol] 1.6 10*3/uL Normal 1.0-4.3 [facility] Comment on above: Performed By: #### L [id number] ####Software Designer: LESLEE HERNANDEZ ([id number])[facility]A [facility] ([facility])[address] Lymphocytes/100 WBC (Bld) 25.8 % Normal 15.0-45.0 [facility] Comment on above: Performed By: #### L [id number] ####Software Designer: LESLEE HERNANDEZ ([id number])[facility]A [place] ([facility])[address] MCH (RBC) [Entitic mass] 31.8 pg Normal 26.0-34.0 [facility] Comment on above: Performed By: #### L [id number] ####Software Designer: LESLEE HERNANDEZ ([id number])[facility]A [facility] ([facility])[address] MCHC 31.5 % Normal 30.5-36.0 [facility] Comment on above: Performed By: #### L [id number] ####Software Designer: LESLEE HERNANDEZ ([id number])[facility]A [place] ([facility])[address] MCV (RBC) [Entitic vol] 100.9 fL High 77.0-99.0 [facility] Comment on above: Performed By: #### L [id number] ####Software Designer: LESLEE HERNANDEZ ([id number])[facility]A [place] ([facility])[address] Monocytes (Bld) [#/Vol] 0.4 10*3/uL Normal 0.0-0.9 [facility] Comment on above: Performed By: #### L [id number] ####Software Designer: LESLEE HERNANDEZ ([id number])[facility]A [place] ([facility])[address] Monocytes/100 WBC (Bld) 5.9 % Normal 5.0-13.0 [facility] Comment on above: Performed By: #### L [id number] ####Software Designer: LESLEE HERNANDEZ ([id number])[facility]A [place] ([facility])[address] NEUTROPHILS ABSOLUTE 4.3 10*3/uL Normal 1.8-7.5 [facility] Comment on above: Performed By: #### L [id number] ####Software Designer: LESLEE HERNANDEZ ([id number])[facility] [place] ([facility])[address] Neutrophils/100 WBC (Bld) 67.5 % Normal 38.0-82.0 [facility] Comment on above: Performed By: #### L [id number] ####Software Designer: LESLEE HERNANDEZ ([id number])[facility]A [place] ([facility])[address] NRBC 0.0 /100 WBCs Normal 0.0-2.0 [facility] Comment on above: Performed By: #### L [id number] ####Software Designer: LESLEE HERNANDEZ ([id number])[facility]A [facility]N ([facility])[address] Platelet mean volume (Bld) [Entitic vol] 10.7 fL Normal 9.0-12.7 [facility] Comment on above: Performed By: #### L [id number] ####Software Designer: LESLEE HERNANDEZ ([id number])[facility]A [facility]N ([facility])[address] Platelets (Bld) [#/Vol] 160 10*3/uL Normal 140-440 [facility] Comment on above: Performed By: #### L [id number] ####Software Designer: LESLEE TURKTYRONE ([id number])[facility] ([facility])[address] [place] [address] RBC (Bld) [#/Vol] 4.24 10*6/uL Low 4.40-5.90 [facility] Comment on above: Performed By: #### L [id number] ####Software Designer: LESLEE HERNANDEZ ([id number])[facility] CENTERKeyon [facility] ([facility])[address] WBC (Bld) [#/Vol] 6.3 10*3/uL Normal 3.6-10.7 [facility] Comment on above: Performed By: #### L [id number] ####Software Designer: LESLEE HERNANDEZ ([id number])[facility]A [facility]N ([facility])[address] COMPREHENSIVE METABOLIC PANE Ming 05-29-2024 Albumin [Mass/Vol] 3.0 g/dL Low 3.5-5.0 [facility] Comment on above: Performed By: #### L [id number] ####Software Designer: LESLEE HERNANDEZ ([id number])[facility] ([facility])[address] ALP [Catalytic activity/Vol] 105 U/L Normal 38-126 [facility] Comment on above: Performed By: #### L AB17 ####Software Designer: LESLEE HERNANDEZ ([id number])[facility]A [place] ([facility])[address] ALT [Catalytic activity/Vol] 114 U/L High 0-49 [facility] Comment on above: Performed By: #### L AB17 ####Software Designer: LESLEE HERNANDEZ ([id number])[facility] [place] ([facility])[address] Anion gap [Moles/Vol] 4 mmol/L Normal 3-13 [facility] Comment on above: Performed By: #### L AB17 ####Software Designer: LESLEE HERNANDEZ ([id number])[facility] ([facility])[address] AST [Catalytic activity/Vol] 49 U/L High 15-46 [facility] Comment on above: Performed By: #### L AB17 ####Software Designer: LESLEE HERNANDEZ ([id number])[facility]A [place] ([facility])[address] Bilirubin [Mass/Vol] 1.3 mg/dL Normal 0.2-1.3 [facility] Comment on above: Performed By: #### L AB17 ####Software Designer: LESLEE HERNANDEZ ([id number])[facility]A [facility]N ([facility])[address] Calcium [Mass/Vol] 8.2 mg/dL Low 8.4-10.4 [facility] Comment on above: Performed By: #### L AB17 ####Software Designer: LESLEE HERNANDEZ ([id number])[facility]A [facility]N ([facility])[address] Chloride [Moles/Vol] 114 mmol/L High 98-107 [facility] Comment on above: Performed By: #### L AB17 ####Software Designer: LESLEE [id number])[facility] CENTERKeyon [place] ([facility])[address] [place] [address] [place] CO2 [Moles/Vol] 18 mmol/L Low 22-30 [facility] Comment on above: Performed By: #### L AB17 ####Software Designer: LESLEE HERNANDEZ ([id number])[facility]A [facility]N ([facility])[address] Creatinine [Mass/Vol] 1.73 mg/dL High 0.66-1.25 [facility] Comment on above: Performed By: #### L AB17 ####Software Designer: LESLEE HERNANDEZ ([id number])[facility]A [facility]N ([facility])[address] GLOMERULAR FILTRATION RATE ML/MIN/1.73 SQ M.PREDICTED 48.7 mL/min/1.73m*2 Low >60.0 [facility] Comment on above: Result Comment: Calc ulation based on the Chronic Kidney Disease Epidemiology Collaboration (CKD-EPI) equation refit without adjustment for race Performed By: #### L AB17 ####Software Designer: LESLEE HERNANDEZ ([id number])[facility]A [facility] ([facility])[address] Glucose [Mass/Vol] 113 mg/dL High 70-100 [facility] Comment on above: Performed By: #### L AB17 ####Software Designer: LESLEE HERNANDEZ ([id number])[facility] ([facility])[address] Potassium [Moles/Vol] 4.6 mmol/L Normal 3.5-5.1 [facility] Comment on above: Performed By: #### L AB17 ####Software Designer: LESLEE HERNANDEZ ([id number])[facility] ([facility])[address] Protein [Mass/Vol] 5.5 g/dL Low 6.3-8.2 [facility] Comment on above: Performed By: #### L AB17 ####Software Designer: LESLEE HERNANDEZ ([id number])[facility] ([facility])[address] Sodium [Moles/Vol] 136 mmol/L Normal 135-145 [facility] Comment on above: Performed By: #### L AB17 ####Software Designer: LESLEEFIDELIA HERNANDEZ ([id number])[facility] ([facility])[address] Urea nitrogen [Mass/Vol] 41 mg/dL High 9-20 [facility] Comment on above: Performed By: #### L AB17 ####Software Designer: LESLEE HERNANDEZ ([id number])[facility] ([facility])[address] [place] [address] Comprehensive metabolic 1998 panelon 05-29-2024 Albumin [Mass/Vol] 3 g/dL Low 3.5 - 5.0 g/dL [facility] [employer] ALP [Catalytic activity/Vol] 105 U/L 38 - 126 U/L [facility] ALT [Catalytic activity/Vol] 114 U/L High 0 - 49 U/L [facility] [employer] Anion gap [Moles/Vol] 4 mmol/L 3 - 13 mmol/L [facility] AST [Catalytic activity/Vol] 49 U/L High 15 - 46 U/L [facility] Bilirubin [Mass/Vol] 1.3 mg/dL 0.2 - 1 .3 mg/dL [facility] [employer] Calcium [Mass/Vol] 8.2 mg/dL Low 8.4 - 10. 4 mg/dL [facility] [employer] Chloride [Moles/Vol] 114 mmol/L High 98 - 10 7 mmol/L [facility] CO2 [Moles/Vol] 18 mmol/L Low 22 - 30 mmol/L [facility] Creatinine [Mass/Vol] 1.73 mg/dL High 0.66 - 1.25 mg/dL [facility] GFR/1.73 sq M.predicted (S/P/Bld) [Vol rate/Area] 48.7 mL/min Low - PINF [facility] Comment on above: Calculation based on the Chronic Kidney Disease Epidemiology Collaboration (CKD-EPI) equation refit without adjustment for race Glucose [Mass/Vol] 113 mg/dL High 70 - 100 mg/dL [facility] Interpretation and review of laboratory results Abnormal [facility] Potassium [Moles/Vol] 4.6 mmol/L 3.5 - 5.1 mmol/L [facility] Protein [Mass/Vol] 5.5 g/dL Low 6.3 - 8.2 g/dL [facility] Sodium [Moles/Vol] 136 mmol/L 135 - 145 mmol/L [facility] Urea nitrogen [Mass/Vol] 41 mg/dL High 9 - 20 mg/dL [facility] Consulton 05-29-2024 Consult Normal [facility] Progress Noteon 05-29-2024 Progress Note Normal [facility] Progress Note Normal [facility] Progress Note Normal [facility] US RETROPERITONEALon 024 US RETROPERITONEAL Normal [facility] US Retroperitoneumon 024 No acute process. Echogenic kidneys suggesting medical renal disease. Report Dictated on Electronically Signed By: Shane Galarza MD Electronically Signed Date/Time: 05/29/2024 10:36 AM EST [facility] [employer] [facility] 1980 [id number] Exam Date/Time: 05/29/2024 09:46 Procedure: US RETROPERITONEAL [...] none Mass: none Cyst: none Bladder: Normal. [facility] Shane Galarza MD - 05/29/2024 Patient Name: CARLO MEDINA : 1980 [facility]#: [id number] Exam Date/Time: 05/29/2024 09:46 Procedure: US RETROPERITONEAL [...] Electronically Signed Date/Time: 05/29/2024 10:36 AM EST [facility] Radiology Study observation (narrative) [facility] 30on 05-28-2024 30 Normal [facility] BASIC METABOLIC PANELon - Anion gap [Moles/Vol] 10 mmol/L Normal 3-13 [facility] Comment on above: Performed By: #### L AB15, [id number] ####Software Designer: LESLEE HERNANDEZ ([id number])[facility] ([facility])[address] [place] [address] Calcium [Mass/Vol] 8.3 mg/dL Low 8.4-10.4 [facility] Comment on above: Performed By: #### L AB15, [id number] ####Software Designer: LESLEE HERNANDEZ ([id number])[facility] [place] ([facility])[address] [place] [address] [place] Chloride [Moles/Vol] 116 mmol/L High 98-107 [facility] Comment on above: Performed By: #### L AB15, [id number] ####Software Designer: LESLEE HERNANDEZ ([id number])[facility] [place] ([facility])[address] CO2 [Moles/Vol] 14 mmol/L Low 22-30 [facility] Comment on above: Performed By: #### L AB15, [id number] ####Software Designer: LESLEE HERNANDEZ ([id number])[facility]A [facility] ([facility])[address] Creatinine [Mass/Vol] 1.74 mg/dL High 0.66-1.25 [facility] Comment on above: Performed By: #### L PÉREZ, [id number] ####Software Designer: LESLEE HERNANDEZ ([id number])[facility] [place] ([facility])[address] GLOMERULAR FILTRATION RATE ML/MIN/1.73 SQ M.PREDICTED 48.4 mL/min/1.73m*2 Low >60.0 [facility] Comment on above: Result Comment: Calc ulation based on the Chronic Kidney Disease Epidemiology Collaboration (CKD-EPI) equation refit without adjustment for race Performed By: #### L PÉREZ, [id number] ####Software Designer: LESLEE HERNANDEZ ([id number])[facility] [place] ([facility])[address] [place] [address] [place] Glucose [Mass/Vol] 96 mg/dL Normal 70-100 [facility] Comment on above: Performed By: #### L AB15, [id number] ####Software Designer: LESLEE HERNANDEZ ([id number])[facility] ([facility])[address] Potassium [Moles/Vol] 4.6 mmol/L Normal 3.5-5.1 [facility] Comment on above: Performed By: #### L AB15, [id number] ####Software Designer: LESLEE HERNANDEZ ([id number])[facility] [place] ([facility])[address] Sodium [Moles/Vol] 139 mmol/L Normal 135-145 [facility] Comment on above: Performed By: #### L AB15, [id number] ####Software Designer: LESLEE HERNANDEZ ([id number])[facility] ([facility])[address] Urea nitrogen [Mass/Vol] 34 mg/dL High 9-20 [facility] Comment on above: Performed By: #### L AB15, [id number] ####Software Designer: LESLEE HERNANDEZ ([id number])[facility] ([facility])[address] Anion gap [Moles/Vol] 8 mmol/L Normal 3-13 [facility] Comment on above: Performed By: #### L [id number], LAB20, LAB15, OBU644, APO477, [id number] ####Software Designer: LESLEE HERNANDEZ ([id number])[facility] ([facility])[address] Calcium [Mass/Vol] 9.1 mg/dL Normal 8.4-10.4 [facility] Comment on above: Performed By: #### L [id number], LAB20, LAB15, EDV020, AJH715, [id number] ####Software Designer: LESLEE HERNANDEZ ([id number])[facility] ([facility])[address] [place] [address] [place] Chloride [Moles/Vol] 114 mmol/L High 98-107 [facility] Comment on above: Performed By: #### L [id number], LAB20, LAB15, EKW683, [id number], MNT229 ####Software Designer: LESLEE HERNANDEZ ([id number])[facility] ([facility])[address] CO2 [Moles/Vol] 19 mmol/L Low 22-30 [facility] Comment on above: Performed By: #### L [id number], LAB20, LAB15, [id number], [id number], [id number] ####Software Designer: LESLEE HERNANDEZ ([id number])[facility] ([facility])[address] Creatinine [Mass/Vol] 2.06 mg/dL High 0.66-1.25 [facility] Comment on above: Performed By: #### L [id number], LAB20, LAB15, [id number], [id number], [id number] ####Software Designer: LESLEE HERNANDEZ ([id number])[facility] ([facility])[address] GLOMERULAR FILTRATION RATE ML/MIN/1.73 SQ M.PREDICTED 39.5 mL/min/1.73m*2 Low >60.0 [facility] Comment on above: Result Comment: Calc ulation based on the Chronic Kidney Disease Epidemiology Collaboration (CKD-EPI) equation refit without adjustment for race Performed By: #### L [id number], LAB20, LAB15, [id number], [id number], FSC210 ####Software Designer: LESLEE HERNANDEZ ([id number])[facility] ([facility])[address] [place] [address] Glucose [Mass/Vol] 120 mg/dL High 70-100 [facility] Comment on above: Performed By: #### L [id number], LAB20, LAB15, JGD003, CDE902, [id number] ####Software Designer: LESLEE HERNANDEZ ([id number])[facility] ([facility])[address] Potassium [Moles/Vol] 4.6 mmol/L Normal 3.5-5.1 [facility] Comment on above: Performed By: #### L [id number], LAB20, LAB15, CBF591, KXL302, DZI041 ####Software Designer: LESLEE HERNANDEZ ([id number])[facility] ([facility])[address] Sodium [Moles/Vol] 141 mmol/L Normal 135-145 [facility] Comment on above: Performed By: #### L [id number], LAB20, LAB15, UJK262, NQI806, KIA178 ####Software Designer: LESLEE HERNANDEZ ([id number])[facility] ([facility])[address] Urea nitrogen [Mass/Vol] 38 mg/dL High 9-20 [facility] Comment on above: Performed By: #### L [id number], LAB20, LAB15, [id number], AAR730, XFH976 ####Software Designer: LESLEE HERNANDEZ ([id number])[facility] ([facility])[address] BLOOD GAS, VENOUSon 05-28-20 24 Base excess Calc (BldV) [Moles/Vol] -6.1000 mmol/L Low -3.0-3.0 [facility] Comment on above: Performed By: #### L [id number] ####Software Designer: LESLEE HERNANDEZ ([id number])[facility] ([facility])[address] CO2 [Moles/Vol] 19.6 mmol/L Low 23.0-30.0 [facility] Comment on above: Performed By: #### L [id number] ####Software Designer: LESLEE HERNANDEZ ([id number])[facility] ([facility])[address] [place] [address] [place] HCO3 (Bld) [Moles/Vol] 18.5 mmol/L Low 21.0-30.0 [facility] Comment on above: Performed By: #### L [id number] ####Software Designer: LESLEE HERNANDEZ ([id number])[facility] ([facility])[address] [place] [address] [place] Hemoglobin (Bld) [Mass/Vol] 16.6 g/dL Normal Screen only [facility] Comment on above: Performed By: #### L [id number] ####Software Designer: LESLEE MARY ([id number])[facility] ([facility])[address] OXYGEN (MM HG) IN VENOUS BLOOD 37.0 mm Hg Normal [facility] Comment on above: Performed By: #### L [id number] ####Software Designer: LESLEEFIDELIA HERNANDEZ ([id number])[facility] ([facility])[address] OXYGEN SATURATION (%) IN VENOUS BLOOD 62.6 % Normal [facility] Comment on above: Performed By: #### L [id number] ####Software Designer: LESLEE MCNEILLRAMON ([id number])[facility] ([facility])[address] PCO2, JAZ 34.6 mm Hg Low 38.0-56.0 [facility] Comment on above: Performed By: #### L [id number] ####Software Designer: LESLEE MARY ([id number])[facility] ([facility])[address] PH VENOUS 7.347 Normal 7.320-7.420 [facility] Comment on above: Performed By: #### L [id number] ####Software Designer: LESLEE MARY ([id number])[facility] ([facility])[address] SOURCE OF OXYGEN Room Air Normal [facility] Comment on above: Result Comment: ALEJANDRO Aleman COMMENTS:Assessment of oxygenation is best done with an arterial blood gas determination. Reference ranges for pO2, bicarbonate, and base excess are for mixed venous blood. Specimens drawn from a peripheral vein will often have higher values.INTERPRET WITH CAUTION, pO2 VALUES FALSELY INCREASED DUE TO VACUUM IN TUBE. FOR ACCURATE RESULTS, PLEASE DRAW IN A SYRINGE. Performed By: #### L [id number] ####Software Designer: LESLEE MARY ([id number])[facility] [place] ([facility])[address] [place] [address] [facility] Basic metabolic 1998 panelon 05-28-2024 Anion gap [Moles/Vol] 10 mmol/L 3 - 13 mmol/L [facility] Calcium [Mass/Vol] 8.3 mg/dL Low 8.4 - 10. 4 mg/dL [facility] Chloride [Moles/Vol] 116 mmol/L High 98 - 10 7 mmol/L [facility] CO2 [Moles/Vol] 14 mmol/L Low 22 - 30 mmol/L [facility] Creatinine [Mass/Vol] 1.74 mg/dL High 0.66 - 1.25 mg/dL [facility] GFR/1.73 sq M.predicted (S/P/Bld) [Vol rate/Area] 48.4 mL/min Low - PINF [facility] Comment on above: Calculation based on the Chronic Kidney Disease Epidemiology Collaboration (CKD-EPI) equation refit without adjustment for race Glucose [Mass/Vol] 96 mg/dL 70 - 100 mg/dL [facility] Interpretation and review of laboratory results Abnormal [facility] Potassium [Moles/Vol] 4.6 mmol/L 3.5 - 5.1 mmol/L [facility] Sodium [Moles/Vol] 139 mmol/L 135 - 145 mmol/L [facility] Urea nitrogen [Mass/Vol] 34 mg/dL High 9 - 20 mg/dL [facility] Anion gap [Moles/Vol] 8 mmol/L 3 - 13 mmol/L [facility] Calcium [Mass/Vol] 9.1 mg/dL 8.4 - 10. 4 mg/dL [facility] Chloride [Moles/Vol] 114 mmol/L High 98 - 10 7 mmol/L [facility] CO2 [Moles/Vol] 19 mmol/L Low 22 - 30 mmol/L [facility] Creatinine [Mass/Vol] 2.06 mg/dL High 0.66 - 1.25 mg/dL [facility] GFR/1.73 sq M.predicted (S/P/Bld) [Vol rate/Area] 39.5 mL/min Low - PINF [facility] [employer] Comment on above: Calculation based on the Chronic Kidney Disease Epidemiology Collaboration (CKD-EPI) equation refit without adjustment for race Glucose [Mass/Vol] 120 mg/dL High 70 - 100 mg/dL [facility] Potassium [Moles/Vol] 4.6 mmol/L 3.5 - 5.1 mmol/L [facility] Sodium [Moles/Vol] 141 mmol/L 135 - 145 mmol/L [facility] Urea nitrogen [Mass/Vol] 38 mg/dL High 9 - 20 mg/dL [facility] CBC W Auto Differential pane l (Bld)on 05-28-2024 Basophils (Bld) [#/Vol] 0 10*3/uL 0.0 - 0.2 10*3/uL [facility] Basophils/100 WBC (Bld) 0.2 % 0.0 - 2.0 % [facility] Eosinophils (Bld) [#/Vol] 0 10*3/uL 0.0 - 0.5 10*3/uL [facility] Eosinophils/100 WBC (Bld) 0.4 % 0.0 - 6.0 % [facility] Erythrocyte distribution width (RBC) [Ratio] 13.9 % 11.5 - 15.0 % [facility] Hematocrit (Bld) [Volume fraction] 48.3 % 40.0 - 52.0 % [facility] Hemoglobin (Bld) [Mass/Vol] 15.7 g/dL 13.0 - 18.0 g/dL [facility] Immature granulocytes (Bld) [#/Vol] 0 10*3/uL NINF - 0.1 10*3/uL [facility] Immature granulocytes/100 WBC (Bld) 0.2 % 0.0 - 2.0 % [facility] Interpretation and review of laboratory results Normal [facility] Lymphocytes (Bld) [#/Vol] 1.7 10*3/uL 1.0 - 4.3 10*3/uL [facility] Lymphocytes/100 WBC (Bld) 30.9 % 15.0 - 45.0 % [facility] MCH (RBC) [Entitic mass] 31.9 pg 26.0 - 34.0 pg [facility] MCHC (RBC) [Mass/Vol] 32.5 % 30.5 - 36.0 % [facility] MCV (RBC) [Entitic vol] 98.2 fL 77.0 - 99.0 fL [facility] Monocytes (Bld) [#/Vol] 0.3 10*3/uL 0.0 - 0.9 10*3/uL [facility] Monocytes/100 WBC (Bld) 5.7 % 5.0 - 13.0 % [facility] Neutrophils (Bld) [#/Vol] 3.4 10*3/uL 1.8 - 7.5 10*3/uL [facility] Neutrophils/100 WBC (Bld) 62.6 % 38.0 - 82.0 % [facility] Nucleated RBC/100 WBC (Bld) [Ratio] 0 % [facility] Platelet mean volume (Bld) [Entitic vol] 10.5 fL 9.0 - 12.7 fL [facility] Platelets (Bld) [#/Vol] 205 10*3/uL 140 - 440 10*3/uL [facility] RBC (Bld) [#/Vol] 4.92 10*6/uL 4.40 - 5.9 0 10*6/uL [facility] WBC (Bld) [#/Vol] 5.4 10*3/uL 3.6 - 10.7 10*3/uL [facility] CBC WITH AUTO DIFFERENTIALon 05-28-2024 Basophils (Bld) [#/Vol] 0.0 10*3/uL Normal 0.0-0.2 [facility] Comment on above: Performed By: #### L [id number] ####Software Designer: LESLEE HERNANDEZ ([id number])[facility] ([facility])[address] [place] [address] Basophils/100 WBC (Bld) 0.2 % Normal 0.0-2.0 [facility] Comment on above: Performed By: #### L [id number] ####Software Designer: LESLEE HERNANDEZ ([id number])[facility] ([facility])[address] [place] [address] Eosinophils (Bld) [#/Vol] 0.0 10*3/uL Normal 0.0-0.5 [facility] Comment on above: Performed By: #### L [id number] ####Software Designer: LESLEE HERNANDEZ ([id number])[facility] ([facility])[address] Eosinophils/100 WBC (Bld) 0.4 % Normal 0.0-6.0 [facility] Comment on above: Performed By: #### L [id number] ####Software Designer: LESLEE HERNANDEZ ([id number])[facility] ([facility])[address] [place] [address] Erythrocyte distribution width (RBC) [Ratio] 13.9 % Normal 11.5-15.0 [facility] Comment on above: Performed By: #### L [id number] ####Software Designer: LESLEE HERNANDEZ ([id number])[facility] ([facility])[address] Hematocrit (Bld) [Volume fraction] 48.3 % Normal 40.0-52.0 [facility] Comment on above: Performed By: #### L [id number] ####Software Designer: LESLEE HERNANDEZ ([id number])[facility] ([facility])[address] [place] [address] Hemoglobin (Bld) [Mass/Vol] 15.7 g/dL Normal 13.0-18.0 [facility] Comment on above: Performed By: #### L [id number] ####Software Designer: LESLEE HERNANDEZ ([id number])[facility] ([facility])[address] [place] [address] IMMATURE GRANS % 0.2 % Normal 0.0-2.0 [facility] Comment on above: Performed By: #### L [id number] ####Software Designer: LESLEE HERNANDEZ ([id number])[facility] ([facility])[address] [place] [address] IMMATURE GRANS ABSOLUTE 0.0 10*3/uL Normal <0.1 [facility] Comment on above: Performed By: #### L [id number] ####Software Designer: LESLEE HERNANDEZ ([id number])[facility] ([facility])[address] [place] [address] Lymphocytes (Bld) [#/Vol] 1.7 10*3/uL Normal 1.0-4.3 [facility] Comment on above: Performed By: #### L [id number] ####Software Designer: LESLEE HERNANDEZ ([id number])[facility] [place] ([facility])[address] Lymphocytes/100 WBC (Bld) 30.9 % Normal 15.0-45.0 [facility] Comment on above: Performed By: #### L [id number] ####Software Designer: LESLEE HERNANDEZ ([id number])[facility] ([facility])[address] MCH (RBC) [Entitic mass] 31.9 pg Normal 26.0-34.0 [facility] Comment on above: Performed By: #### L [id number] ####Software Designer: LESLEE MCNEILLNinoskaTYRONE ([id number])[facility]ENTER[facility] [place] ([facility])[address] MCHC 32.5 % Normal 30.5-36.0 [facility] Comment on above: Performed By: #### L [id number] ####Software Designer: LESLEE TURKTYRONE ([id number])[facility] [place] ([facility])[address] MCV (RBC) [Entitic vol] 98.2 fL Normal 77.0-99.0 [facility] Comment on above: Performed By: #### L [id number] ####Software Designer: LESLEE HERNANDEZ ([id number])[facility] ([facility])[address] Monocytes (Bld) [#/Vol] 0.3 10*3/uL Normal 0.0-0.9 [facility] Comment on above: Performed By: #### L [id number] ####Software Designer: LESLEE HERNANDEZ ([id number])[facility]ENTERKeyon [facility] ([facility])[address] Monocytes/100 WBC (Bld) 5.7 % Normal 5.0-13.0 [facility] Comment on above: Performed By: #### L [id number] ####Software Designer: LESLEE TURKTYRONE ([id number])[facility] [place] ([facility])[address] NEUTROPHILS ABSOLUTE 3.4 10*3/uL Normal 1.8-7.5 [facility] Comment on above: Performed By: #### L [id number] ####Software Designer: LESLEE TORRESCER ([id number])[facility] [place] ([facility])[address] Neutrophils/100 WBC (Bld) 62.6 % Normal 38.0-82.0 [facility] Comment on above: Performed By: #### L [id number] ####Software Designer: LESLEE TURKTYRONE ([id number])[facility] [place] ([facility])[address] NRBC 0.0 /100 WBCs Normal 0.0-2.0 [facility] Comment on above: Performed By: #### L [id number] ####Software Designer: LESLEE TURKTYRONE ([id number])[facility] [place] ([facility])[address] Platelet mean volume (Bld) [Entitic vol] 10.5 fL Normal 9.0-12.7 [facility] Comment on above: Performed By: #### L [id number] ####Software Designer: LESLEE HERNANDEZ ([id number])[facility] [place] ([facility])[address] Platelets (Bld) [#/Vol] 205 10*3/uL Normal 140-440 [facility] Comment on above: Performed By: #### L [id number] ####Software Designer: LESLEE TURKTYRONE ([id number])[facility] [place] ([facility])[address] RBC (Bld) [#/Vol] 4.92 10*6/uL Normal 4.40-5.90 [facility] Comment on above: Performed By: #### L [id number] ####Software Designer: LESLEE HERNANDEZ ([id number])[facility] ([facility])[address] WBC (Bld) [#/Vol] 5.4 10*3/uL Normal 3.6-10.7 [facility] Comment on above: Performed By: #### L [id number] ####Software Designer: LESLEE HERNANDEZ ([id number])[facility] ([facility])[address] CHLORIDE, URINE, RANDOMon CHLORIDE, UR RANDOM 45 mmol/L Normal 19- [facility] Comment on above: Performed By: #### L [id number], QIS101, BIC918, MDV853 ####Software Designer: LESLEE HERNANDEZ ([id number])[facility] ([facility])[address] COMPLETE URINALYSISon 2023 AMORPHOUS CRYSTALS (#/HPF) IN URINE Few Abnormal Negative [facility] Comment on above: Performed By: #### L [id number] ####Software Designer: LESLEE HERNANDEZ ([id number])[facility] ([facility])[address] BACTERIA (#/HPF) IN URINE Few Abnormal Negative [facility] Comment on above: Performed By: #### L [id number] ####Software Designer: LESLEE HERNANDEZ ([id number])[facility] ([facility])[address] [place] [address] [place] BILIRUBIN, TOTAL PRESENCE IN URINE Negative Normal Negative [facility] Comment on above: Performed By: #### L [id number] ####Software Designer: LESLEE HERNANDEZ ([id number])[facility] ([facility])[address] Clarity (U) Clear Normal Clear [facility] Comment on above: Performed By: #### L [id number] ####Software Designer: LESLEE HERNANDEZ ([id number])[facility] ([facility])[address] Color (U) Yellow Normal Lt. Yellow [facility] Comment on above: Performed By: #### L [id number] ####Software Designer: LESLEE HERNANDEZ ([id number])[facility] ([facility])[address] GLUCOSE (MG/DL) IN URINE Normal Normal Normal (<70) [facility] Comment on above: Performed By: #### L [id number] ####Software Designer: LESLEE HERNANDEZ ([id number])[facility] ([facility])[address] GRANULAR CASTS (#/LPF) IN URINE 0-2 Abnormal Negative [facility] Comment on above: Performed By: #### L [id number] ####Software Designer: LESLEE HERNANDEZ ([id number])[facility] (HLAB)[address] HEMOGLOBIN PRESENCE IN URINE 0.03 mg/dL Abnormal Negative [facility] Comment on above: Performed By: #### L [id number] ####Software Designer: LESLEE HERNANDEZ ([id number])[facility] ([facility])[address] HYALINE CASTS (#/LPF) IN URINE SEDIMENT BY MICROSCOPY 3-5 Abnormal Negative [facility] Comment on above: Performed By: #### L [id number] ####Software Designer: LESLEE HERNANDEZ ([id number])[facility] ([facility])[address] Ketones Ql (U) Trace Abnormal Negative [facility] Comment on above: Performed By: #### L [id number] ####Software Designer: LESLEE HERNANDEZ ([id number])[facility] ([facility])[address] LEUKOCYTE ESTERASE PRESENCE IN URINE BY TEST STRIP Negative Normal Negative [facility] Comment on above: Performed By: #### L [id number] ####Software Designer: LESLEE HERNANDEZ ([id number])[facility] [place] ([facility])[address] [place] [address] [place] MUCUS (#/LPF) IN URINE SEDIMENT Moderate Abnormal Negative [facility] Comment on above: Performed By: #### L [id number] ####Software Designer: LESLEE HERNNADEZ ([id number])[facility] [place] ([facility])[address] [place] [address] [place] NITRITE PRESENCE IN URINE Negative Normal Negative [facility] Comment on above: Performed By: #### L [id number] ####Software Designer: LESLEE HERNANDEZ ([id number])[facility] [place] ([facility])[address] [place] [address] [place] NON-SQUAMOUS EPITHELIAL (#/HPF) IN URINE 0-2 Abnormal Negative [facility] Comment on above: Performed By: #### L [id number] ####Software Designer: LESLEE HERNANDEZ ([id number])[facility] [place] ([facility])[address] pH (U) 5.5 [pH] Normal 5.0-8.0 [facility] Comment on above: Performed By: #### L [id number] ####Software Designer: LESLEE HERNANDEZ ([id number])[facility] [place] ([facility])[address] [place] [address] [place] Protein (U) [Mass/Vol] 70 mg/dL Abnormal Negative [facility] Comment on above: Performed By: #### L [id number] ####Software Designer: LESLEE HERNANDEZ ([id number])[facility] [place] ([facility])[address] [place] [address] [place] RBC (#/HPF) IN URINE SEDIMENT 0-2 Normal 0-2 [facility] Comment on above: Performed By: #### L [id number] ####Software Designer: LESLEE HERNANDEZ ([id number])[facility] [place] ([facility])[address] Specific gravity (U) [Rel density] 1.032 High 1.005-1.030 [facility] Comment on above: Performed By: #### L [id number] ####Software Designer: LESLEE HERNANDEZ ([id number])[facility]ENTER[facility] [place] (SB[facility])[address] SQUAMOUS EPITHELIAL CELLS (#/HPF) IN URINE SEDIMENT 0-2 Normal 3-5 [facility] Comment on above: Performed By: #### L [id number] ####Software Designer: LESLEE HERNANDEZ ([id number])[facility] [place] ([facility])[address] UROBILINOGEN (MG/DL) IN URINE Normal Normal Normal (0-1) [facility] Comment on above: Performed By: #### L [id number] ####Software Designer: LESLEE HERNANDEZ ([id number])[facility]ENTER[facility] ([facility])[address] WBC (LEUKOCYTE) (#/HPF) IN URINE SEDIMENT 3-5 Normal 0-5 [facility] Comment on above: Performed By: #### L [id number] ####Software Designer: LESLEE HERNANDEZ ([id number])[facility] [place] ([facility])[address] [place] [address] Consulton 05-28-2024 Consult Normal [facility] Consult Normal [facility] ECG 12-LEADon 05-28-2024 ECG 12-LEAD Normal [facility] ED Nursing Noteon 05-28-2024 ED Nursing Note Normal [facility] ED Provider Noteon ED Provider Note Normal [facility] HEPATIC FUNCTION PANELon Albumin [Mass/Vol] 3.8 g/dL Normal 3.5-5.0 [facility] Comment on above: Performed By: #### L [id number], LAB20, LAB15, MUB540, EFR190, OXQ910 ####Software Designer: LESLEE HERNANDEZ ([id number])[facility]ENTER[facility] ([facility])[address] ALP [Catalytic activity/Vol] 104 U/L Normal 38-126 [facility] Comment on above: Performed By: #### L [id number], LAB20, LAB15, GOO469, VCR073, WFB018 ####Software Designer: LESLEE HERNANDEZ ([id number])[facility] ([facility])[address] ALT [Catalytic activity/Vol] 129 U/L High 0-49 [facility] Comment on above: Performed By: #### L [id number], LAB20, LAB15, HEF922, TGS860, [id number] ####Software Designer: LESLEE HERNANDEZ ([id number])[facility] ([facility])[address] AST [Catalytic activity/Vol] 48 U/L High 15-46 [facility] Comment on above: Performed By: #### L [id number], LAB20, LAB15, CSV176, AEW065, PAR406 ####Software Designer: LESLEE HERNANDEZ ([id number])[facility] ([facility] Bilirubin [Mass/Vol] 1.8 mg/dL High 0.2-1.3 [facility] Comment on above: Performed By: #### L [id number], LAB20, LAB15, [id number], [id number], [id number] ####Software Designer: LESLEE HERNANDEZ ([id number])[facility] ([facility])[address] Bilirubin.indirect [Mass/Vol] 0.0 mg/dL Normal 0.0-0.3 [facility] Comment on above: Performed By: #### L [id number], LAB20, LAB15, [id number], [id number], [id number] ####Software Designer: LESLEE HERNANDEZ ([id number])[facility] ([facility])[address] Protein [Mass/Vol] 6.8 g/dL Normal 6.3-8.2 [facility] Comment on above: Performed By: #### L [id number], LAB20, LAB15, [id number], YXR515, [id number] ####Software Designer: LESLEE HERNANDEZ ([id number])[facility] ([facility])[address] Hepatic function 2000 panelo n 05-28-2024 Albumin [Mass/Vol] 3.8 g/dL 3.5 - 5.0 g/dL [facility] ALP [Catalytic activity/Vol] 104 U/L 38 - 126 U/L [facility] ALT [Catalytic activity/Vol] 129 U/L High 0 - 49 U/L [facility] AST [Catalytic activity/Vol] 48 U/L High 15 - 46 U/L [facility] Bilirubin [Mass/Vol] 1.8 mg/dL High 0.2 - 1 .3 mg/dL [facility] Bilirubin.conjugated [Mass/Vol] 0 mg/dL 0.0 - 0.3 mg/dL [facility] Protein [Mass/Vol] 6.8 g/dL 6.3 - 8.2 g/dL [facility] Laboratory - Chemistry and C hemistry - challengeon 05-28-2024 Chloride (U) [Moles/Vol] 45 mmol/L 19 - 209 mmol/L [facility] Sodium (24H U) [Mass/Vol] 74 mmol/L 30 - 90 mmol/L [facility] Troponin I.cardiac [Mass/Vol] 0.037 ng/mL High NINF - 0.034 ng/mL [facility] TSH Qn 0.82 m[IU]/L [facility] Troponin I.cardiac [Mass/Vol] 0.051 ng/mL High NINF - 0.034 ng/mL [facility] Magnesium [Mass/Vol] 2.4 mg/dL High 1.6 - 2 .3 mg/dL [facility] Glucose [Mass/Vol] 120 mg/dL High 70 - 100 mg/dL [facility] Laboratory - Chemistry and C hemistry - challengeOrdered By: Susan Patton on 05-28-2024 Base excess Calc (BldV) [Moles/Vol] -6.1000 mmol/L Low -3.0 - 3.0 mmol/L [facility] CO2 (BldV) [Partial pressure] 34.6 mm[Hg] Low [facility] CO2 [Moles/Vol] 19.6 mmol/L Low 23.0 - 30.0 mmol/L [facility] HCO3 (Bld) [Moles/Vol] 18.5 mmol/L Low 21.0 - 30.0 mmol/L [facility] Oxygen (BldV) [Partial pressure] 37 mm[Hg] mm Hg [facility] pH (BldV) 7.347 [pH] 7.320 - 7.420 [facility] Laboratory - Hematology and Cell countsOrdered By: Susna Patton on 05-28-2024 Hemoglobin (Bld) [Mass/Vol] 16.6 g/dL Screen only [facility] Laboratory - Urinalysison Protein (U) [Mass/Vol] 61 mg/dL High 0 - 12 mg/dL [facility] MAGNESIUMon 05-28-2024 Magnesium [Mass/Vol] 2.4 mg/dL High 1.6-2.3 [facility] Comment on above: Performed By: #### L [id number], LAB20, LAB15, [id number], [id number], [id number] ####Software Designer: LESLEE HERNANDEZ ([id number])[facility] ([facility])[address] [place] [address] MICROALBUMIN / CREATININE UR INE RATIOon 05-28-2024 CREATININE, URINE 293.8 mg/dL Normal No Range [facility] Comment on above: Performed By: #### L [id number], [id number], WLC913, [id number] ####Software Designer: LESLEE HERNANDEZ ([id number])[facility] ([facility])[address] [place] [address] MICROALBUMIN, URINE 324.5 mg/L High 0.0-29.9 [facility] Comment on above: Result Comment: ALEJANDRO Aleman COMMENTS:Microalbumin concentrations <30 are considered normal, 30-300 are considered microalbuminuria (or risk of diabetic nephropathy), and >300 are considered clinical albuminuria (clinical nephropathy).Diabetes Care,27, Supplement 1, U12003 Performed By: #### L AB444, BOT996, YIO440, FAV772 ####Software Designer: LESLEE HERNANDEZ ([id number])[facility] ([facility])[address] [place] [address] MICROALBUMIN/CREATININ E RATIO 110.4 mg/g High 0.0-29.9 [facility] Comment on above: Performed By: #### L AB444, PXO762, VLX492, [id number] ####Software Designer: LESLEE HERNANDEZ ([id number])[facility] ([facility])[address] [place] [address] Microalbumin/Creatinine rati o panel (U)on 05-28-2024 Albumin DL <= 20 mg/L (U) [Mass/Vol] 324.5 mg/L High 0.0 - 29.9 mg/L [facility] Albumin/Creatinine DL <= 20 mg/L (U) [Mass ratio] 110.4 mg/g High 0.0 - 29.9 mg/g [facility] CREATININE, URINE 293.8 mg/dL No Range [facility] Interpretation and review of laboratory results Abnormal [facility] Microalbumin concentrations <30 are considered normal, 30-300 are considered microalbuminuria (or risk of diabetic nephropathy), and >300 are considered clinical albuminuria (clinical nephropathy). Diabetes Care,, Supplement 1, [id number] [facility] NT PRO BNPon 05-28-2024 Natriuretic peptide B (Bld) [Mass/Vol] 15284 pg/mL High <20-100 [facility] Comment on above: Performed By: #### L [id number], LAB20, LAB15, BZD440, [id number], [id number] ####Software Designer: LESLEE HERNANDEZ ([id number])[facility] ([facility])[address] [place] [address] [place] Natriuretic peptide B [Mass/ Vol]on 05-28-2024 Natriuretic peptide B (Bld) [Mass/Vol] 15273 pg/mL High <20 - 100 [facility] No Panel Informationon 05-28 Interpretation and review of laboratory results Normal [facility] Interpretation and review of laboratory results Abnormal [facility] Interpretation and review of laboratory results Abnormal [facility] P Cylinder 54 degrees [facility] DE Interval 133 ms [facility] QRS Cylinder -28 degrees [facility] QRSD Interval [facility]val 329 ms [facility] QTC Interval 473 ms [facility] T Wave Cylinder 103 degrees [facility] Izaiah Martins MD - 05/28/2024 IMPRESSION: Sinus tachycardia Probable left atrial enlargement Abnormal R-wave progression, late transition Left ventricular hypertrophy Nonspecific T abnormalities, lateral leads Anterior ST elevation, probably due to LVH Electronically Signed On 05-28-2024 09:01:45 EST by Izaiah Martins [facility] Interpretation and review of laboratory results Abnormal [facility] Interpretation and review of laboratory results Abnormal [facility] Performed by: [facility], [address] [place] [address] CLIA ID: [id number] [facility] No Panel InformationOrdered By: Susan Patton on 05-28-2024 Interpretation and review of laboratory results Abnormal [facility] Source Of Oxygen Room Air [facility] xavi Assessment of oxygenation is best done with an arterial blood gas determination. Reference ranges for pO2, bicarbonate, and base excess are for mixed venous blood. Specimens drawn from a peripheral vein will often have higher values. INTERPRET WITH CAUTION, pO2 VALUES FALSELY INCREASED DUE TO VACUUM IN TUBE. FOR ACCURATE RESULTS, PLEASE DRAW IN A SYRINGE. [facility] PROTEIN, URINE, RANDOMon Protein (U) [Mass/Vol] 61 mg/dL High 0-12 [facility] Comment on above: Performed By: #### L AB444, DAA682, MJZ275, QSB874 ####Software Designer: LESLEE HERNANDEZ ([id number])[facility] ([facility]AB)[address] SODIUM, URINE, RANDOMon 05-01 Sodium (U) [Moles/Vol] 74 mmol/L Normal 30-90 [facility] Comment on above: Performed By: #### L AB444, QPW027, HGR381, EKG654 ####Software Designer: LESLEE HERNANDEZ ([id number])[facility] ([facility])[address] THYROID STIMULATING HORMONEo n 05-28-2024 THYROID STIMULATING HORMONE 0.820 uIU/mL Normal 0.465-4.680 [facility] Comment on above: Performed By: #### L [id number], LAB20, LAB15, JFB450, AMX110, YOH289 ####Software Designer: LESLEE HERNANDEZ ([id number])[facility] ([facility])[address] TROPONIN Ion 05-28-2024 Troponin I.cardiac [Mass/Vol] 0.037 ng/mL High <0.034 [facility] Comment on above: Result Comment: ALEJANDRO Aleman COMMENTS:Patients with high levels of Biotin oral intake (ie >5 mg/day) may have falsely decreased Troponin levels. Performed By: #### L AB15, EHU136 ####Software Designer: LESLEE HERNANDEZ ([id number])[facility] ([facility])[address] TROPONIN, WITH SERIAL REFLEX on 05-28-2024 Troponin I.cardiac [Mass/Vol] 0.051 ng/mL High <0.034 [facility] Comment on above: Result Comment: ALEJANDRO Aleman COMMENTS:Patients with high levels of Biotin oral intake (ie >5 mg/day) may have falsely decreased Troponin levels. Performed By: #### L [id number], LAB20, LAB15, HMH462, FAB487, HWW105 ####Software Designer: LESLEE MCNEILLTYRONE ([id number])[facility] ([facility])[address] TSH Qnon 05-28-2024 Interpretation and review of laboratory results Normal [facility] Troponin I.cardiac [Mass/Vol ]on 05-28-2024 Interpretation and review of laboratory results Abnormal [facility] Patients with high levels of Biotin oral intake (ie >5 mg/day) may have falsely decreased Troponin levels. [facility] Patients with high levels of Biotin oral intake (ie >5 mg/day) may have falsely decreased Troponin levels. [facility] Urinalysis complete panel (U )Ordered By: Jessica Santoro on 05-28-2024 Amorphous Crystals, Urine Few Abnormal Negative /HPF [facility] Bacteria LM.HPF (Urine sed) [#/Area] Few Abnormal Negative /HPF [facility] Bilirubin Ql (U) Negative Negative mg/dL [facility] Clarity (U) Clear Clear [facility] Color (U) Yellow Lt. Yellow [facility] Epithelial cells.squamous LM.HPF (Urine sed) [#/Area] 0-2 [facility] h Glucose Ql (U) Normal Normal (<70) mg/dL [facility] Granular casts LM.HPF (Urine sed) [#/Area] 0-2 Abnormal Negative /[facility]F [facility] Hemoglobin Ql (U) 0.03 mg/dL Abnormal Negative [facility] ealth Hyaline casts Auto (Urine sed) [#/Area] 3-5 Abnormal Negative /LPF [facility] Interpretation and review of laboratory results Abnormal [facility] Ketones (U) [Mass/Vol] Trace Abnormal Negat dai mg/dL [facility] Leukocyte esterase Test strip Ql (U) Negative Negative Nicky/uL [facility] Mucus LM.HPF (Urine sed) [#/Area] Moderate Abnormal Negative /LPF [facility] Nitrite Ql (U) Negative Negative [facility] Non-Squamous Epithalial Cells, Urine 0-2 Abnormal Negative /HPF [facility] pH (U) 5.5 [pH] 5.0 - 8.0 pH [facility] Protein (U) [Mass/Vol] 70 mg/dL Abnormal Negative [facility] RBC LM.HPF (Urine sed) [#/Area] 0-2 [facility] Specific gravity (U) [Rel density] 1.032 High 1.005 - 1.030 [facility] Urobilinogen (U) [Mass/Vol] Normal Normal (0-1) mg/dL [facility] WBC LM.HPF (Urine sed) [#/Area] 3-5 [facility] Vital signson 05-28-2024 Heart rate 124 /min bpm [facility] Vital signsOrdered By: Radu Patton on 05-28-2024 Oxygen saturation in Venous blood 62.6 % [facility] XR Chest Single viewon 05-28 FINDINGS AND IMPRESSION: SUPPORT DEVICES: None OSSEOUS STRUCTURES: Degenerative changes in the thoracic spine. HEART AND MEDIASTINUM: The cardiac silhouette is enlarged. The mediastinum is unremarkable. LUNGS AND PLEURA: The lungs are clear. No sizable pleural effusion. Report Dictated on Electronically Signed By: Shane Galarza MD Electronically Signed Date/Time: 05/28/2024 8:23 AM [facility] Patient Name: CARLO MEDINA : 1980 Exam Date/Time: 05/28/2024 08:13 Procedure: XR CHEST 1 VIEW Ordering Provider: MARTINS KEVIN Reason For Exam: DYSPNEA CHEST CLINICAL INDICATION: dyspnea TECHNIQUE: AP portable chest COMPARISON: 04/28/24 [facility] Shane Galarza MD - 05/28/2024 Patient [...] Electronically Signed Date/Time: 05/28/2024 8:23 AM EST [facility] Radiology Study observation (narrative) [facility] XR Chest Single viewOrdered By: Shane Galarza on 05-28-2024 [facility] [employer] Work Phone: 36on 05-05-2024 36 Normal [facility] 36on 04-30-2024 36 Normal [facility] 36 Normal [facility] ECG 12-LEADon 04-30-2024 ECG 12-LEAD IMPRESSION: Sinus tachycardia Probable left atrial enlargement Probable LVH with secondary repol abnrm Electronically Signed On 04-30-2024 12:14:37 EDT by Shannan Lima Normal [facility] 36on 04-29-2024 36 Normal [facility] 30on 04-28-2024 30 Normal [facility] [id number] 04-28-2024 [id number] Normal [facility] [id number] Normal [facility] [id number] Normal [facility] BASIC METABOLIC PANELon 10 Anion gap [Moles/Vol] 5 mmol/L Normal 3-13 [facility] Comment on above: Performed By: #### Pedro AB15, [id number], [id number] ####Software Designer: NICOLE BOWERS ([id number])[facility] (SWRL[facility])[address] [place] [address] [place] Calcium [Mass/Vol] 9.0 mg/dL Normal 8.4-10.4 [facility] Comment on above: Performed By: #### Pedro AB15, [id number], [id number] ####Software Designer: NICOLE BOWERS ([id number])[facility] (SWRL[facility])[address] [place] [address] [place] Chloride [Moles/Vol] 109 mmol/L High 98-107 [facility] Comment on above: Performed By: #### Pedro AB15, [id number], [id number] ####Software Designer: NICOLE BOWERS ([id number])[facility] (SWRLAB)[address] [place] [address] [place] CO2 [Moles/Vol] 26 mmol/L Normal -30 [facility] Comment on above: Performed By: #### L AB15, [id number], [id number] ####Software Designer: NICOLE BOWERS ([id number])[facility] (SWRLAB)[address] [place] [address] [place] Creatinine [Mass/Vol] 1.58 mg/dL High 0.66-1.25 [facility] Comment on above: Performed By: #### Pedro ORTEZ, [id number], [id number] ####Software Designer: NICOLE BOWERS ([id number])[facility]ENTERKeyon YEH RITTMAN (SWRLAB)[address] [place] [address] [place] GLOMERULAR FILTRATION RATE ML/MIN/1.73 SQ M.PREDICTED 54.3 mL/min/1.73m*2 Low >60.0 [facility] Comment on above: Result Comment: Calc ulation based on the Chronic Kidney Disease Epidemiology Collaboration (CKD-EPI) equation refit without adjustment for race Performed By: #### Pedro ORTEZ, [id number], [id number] ####Software Designer: NICOLE BOWERS ([id number])[facility]ENTER[facility]on YEH RITTMAN (SWRL[facility])[address] [place] [address] [place] Glucose [Mass/Vol] 128 mg/dL High 70-100 [facility] Comment on above: Performed By: #### Pedro ORTEZ, [id number], [id number] ####Software Designer: NICOLE BOWERS ([id number])[facility]ENTERKeyon RODRIGESKAMALJIT RITTMAN (SWRLAB)[address] [place] [address] [place] Potassium [Moles/Vol] 4.2 mmol/L Normal 3.5-5.1 [facility] Comment on above: Performed By: #### Pedro ORTEZ, [id number], [id number] ####Software Designer: NICOLE BOWERS ([id number])[facility]ENTERKeyon RODRIGESKAMALJIT RITTMAN (SWRLAB)[address] [place] [address] [place] Sodium [Moles/Vol] 140 mmol/L Normal 135-145 [facility] Comment on above: Performed By: #### Pedro [id number], [id number], [id number] ####Software Designer: NICOLE BOWERS ([id number])[facility]ENTERKeyon YEH RITTMAN (SWRLAB)[address] [place] [address] [place] Urea nitrogen [Mass/Vol] 21 mg/dL High 9-20 [facility] Comment on above: Performed By: #### L AB15, [id number], [id number] ####Software Designer: NIOCLE BOWERS ([id number])[facility] ([facility])[address] [place] [address] Bacteria identified Aer cx N om (Lower resp)on 04-28-2024 Gram Stain Result Many Epithelial cell s per low power field Abnormal [facility] Gram Stain Result Many Polymorphonuclear leukocytes per low power field Abnormal [facility] Gram Stain Result Positive Abnormal [facility] ealth Gram Stain Result Smear contains >= 15 squamous cells per low power field, suggestive of poor quality. Culture not performed. Please re-collect if clinically indicated. Abnormal [facility] Interpretation and review of laboratory results Abnormal [facility] Basic metabolic 1998 panelon 04-28-2024 Anion gap [Moles/Vol] 5 mmol/L 3 - 13 mmol/L [facility] Calcium [Mass/Vol] 9 mg/dL 8.4 - 10. 4 mg/dL [facility] Chloride [Moles/Vol] 109 mmol/L High 98 - 10 7 mmol/L [facility] CO2 [Moles/Vol] 26 mmol/L 22 - 30 mmol/L [facility] Creatinine [Mass/Vol] 1.58 mg/dL High 0.66 - 1.25 mg/dL [facility] GFR/1.73 sq M.predicted (S/P/Bld) [Vol rate/Area] 54.3 mL/min Low - PINF [facility] Comment on above: Calculation based on the Chronic Kidney Disease Epidemiology Collaboration (CKD-EPI) equation refit without adjustment for race Glucose [Mass/Vol] 128 mg/dL High 70 - 100 mg/dL [facility] Interpretation and review of laboratory results Abnormal [facility] Potassium [Moles/Vol] 4.2 mmol/L 3.5 - 5.1 mmol/L [facility] Sodium [Moles/Vol] 140 mmol/L 135 - 145 mmol/L [facility] Urea nitrogen [Mass/Vol] 21 mg/dL High 9 - 20 mg/dL [facility] CBC W Auto Differential pane l (Bld)on 04-28-2024 Basophils (Bld) [#/Vol] 0 10*3/uL 0.0 - 0.2 10*3/uL [facility] Basophils/100 WBC (Bld) 0.2 % 0.0 - 2.0 % [facility] Eosinophils (Bld) [#/Vol] 0.1 10*3/uL 0.0 - 0.5 10*3/uL [facility] Eosinophils/100 WBC (Bld) 0.6 % 0.0 - 6.0 % [facility] Erythrocyte distribution width (RBC) [Ratio] 12 % 11.5 - 15.0 % [facility] Hematocrit (Bld) [Volume fraction] 36 % Low 40.0 - 52.0 % [facility] Hemoglobin (Bld) [Mass/Vol] 12.1 g/dL Low 13.0 - 18.0 g/dL [facility] Immature granulocytes (Bld) [#/Vol] 0 10*3/uL NINF - 0.1 10*3/uL [facility] Immature granulocytes/100 WBC (Bld) 0 % 0.0 - 2.0 % [facility] Interpretation and review of laboratory results Abnormal [facility] Lymphocytes (Bld) [#/Vol] 1.6 10*3/uL 1.0 - 4.3 10*3/uL [facility] Lymphocytes/100 WBC (Bld) 19.5 % 15.0 - 45.0 % [facility] MCH (RBC) [Entitic mass] 31.4 pg 26.0 - 34.0 pg [facility] MCHC (RBC) [Mass/Vol] 33.6 % 30.5 - 36.0 % [facility] MCV (RBC) [Entitic vol] 93.5 fL 77.0 - 99.0 fL [facility] Monocytes (Bld) [#/Vol] 0.6 10*3/uL 0.0 - 0.9 10*3/uL [facility] Monocytes/100 WBC (Bld) 7.6 % 5.0 - 13.0 % [facility] Neutrophils (Bld) [#/Vol] 5.8 10*3/uL 1.8 - 7.5 10*3/uL [facility] Neutrophils/100 WBC (Bld) 72.1 % 38.0 - 82.0 % [facility] Nucleated RBC/100 WBC (Bld) [Ratio] 0 % [facility] Platelet mean volume (Bld) [Entitic vol] 9 fL 9.0 - 12.7 fL [facility] Comment on above: MPV is a calculated measurement using platelet volume ratio Platelets (Bld) [#/Vol] 277 10*3/uL 140 - 440 10*3/uL [facility] RBC (Bld) [#/Vol] 3.85 10*6/uL Low 4.40 - 5.9 0 10*6/uL [facility] WBC (Bld) [#/Vol] 8 10*3/uL 3.6 - 10.7 10*3/uL [facility] CBC WITH AUTO DIFFERENTIALon 04-28-2024 Basophils (Bld) [#/Vol] 0.0 10*3/uL Normal 0.0-0.2 [facility] Comment on above: Performed By: #### L [id number] ####Software Designer: NICOLE BOWERS ([id number])[facility] (SWRLAB)[address] [place] [address] [place] Basophils/100 WBC (Bld) 0.2 % Normal 0.0-2.0 [facility] Comment on above: Performed By: #### L [id number] ####Software Designer: NICOLE BOWERS ([id number])[facility] (SWRLAB)[address] [place] [address] [place] Eosinophils (Bld) [#/Vol] 0.1 10*3/uL Normal 0.0-0.5 [facility] Comment on above: Performed By: #### L [id number] ####Software Designer: NICOLE BOWERS ([id number])[facility] (SWRLAB)[address] [place] [address] [place] Eosinophils/100 WBC (Bld) 0.6 % Normal 0.0-6.0 [facility] Comment on above: Performed By: #### L [id number] ####Software Designer: NICOLE BOWERS ([id number])[facility] (SWRLAB)[address] [place] [address] [place] Erythrocyte distribution width (RBC) [Ratio] 12.0 % Normal 11.5-15.0 [facility] Comment on above: Performed By: #### L [id number] ####Software Designer: NICOLE BOWERS ([id number])[facility]ENTERKey[facility] YE[facility]TMAN (SWRLAB)[address] [place] [address] Hematocrit (Bld) [Volume fraction] 36.0 % Low 40.0-52.0 [facility] Comment on above: Performed By: #### L [id number] ####Software Designer: NICOLE BOWERS ([id number])[facility]ENTER[facility] (SWRLAB)[address] [place] [address] Hemoglobin (Bld) [Mass/Vol] 12.1 g/dL Low 13.0-18.0 [facility] Comment on above: Performed By: #### L [id number] ####Software Designer: NICOLE BOWERS ([id number])[facility]ENTER[facility] (SWRLAB)[address] [place] [address] IMMATURE GRANS % 0.0 % Normal 0.0-2.0 [facility] Comment on above: Performed By: #### L [id number] ####Software Designer: NICOLE BOWERS ([id number])[facility]ENTER[facility] (SWRLAB)[address] [place] [address] IMMATURE GRANS ABSOLUTE 0.0 10*3/uL Normal <0.1 [facility] Comment on above: Performed By: #### L [id number] ####Software Designer: NICOLE BOWERS ([id number])[facility]ENTERKeyon RODRIGESKAMALJIT RITTMAN (SWRLAB)[address] [place] [address] Lymphocytes (Bld) [#/Vol] 1.6 10*3/uL Normal 1.0-4.3 [facility] Comment on above: Performed By: #### L [id number] ####Software Designer: NICLOE BOWERS ([id number])[facility] [employer] (SWRLAB)[address] [place] [address] [place] Lymphocytes/100 WBC (Bld) 19.5 % Normal 15.0-45.0 [facility] Comment on above: Performed By: #### L [id number] ####Software Designer: NICOLE BOWERS ([id number])[employer] [facility] [employer] (SWRLAB)[address] [place] [address] MCH (RBC) [Entitic mass] 31.4 pg Normal 26.0-34.0 [facility] Comment on above: Performed By: #### L [id number] ####Software Designer: NICOLE BOWERS ([id number])[facility]ENTERKeyon YEH RITTMAN (SWRLAB)[address] [place] [address] MCHC 33.6 % Normal 30.5-36.0 [facility] Comment on above: Performed By: #### L [id number] ####Software Designer: NICOLE BOWERS ([id number])[facility]ENTERKeyon YEH RITTMAN (SWRLAB)[address] [place] [address] MCV (RBC) [Entitic vol] 93.5 fL Normal 77.0-99.0 [facility] Comment on above: Performed By: #### L [id number] ####Software Designer: NICOLE BOWERS ([id number])[facility]ENTERKeyon YEH RITTMAN (SWRLAB)[address] [place] [address] Monocytes (Bld) [#/Vol] 0.6 10*3/uL Normal 0.0-0.9 [facility] Comment on above: Performed By: #### L [id number] ####Software Designer: NICOLE BOWERS ([id number])[employer] (SWRLAB)[address] [place] [address] [place] Monocytes/100 WBC (Bld) 7.6 % Normal 5.0-13.0 [facility] Comment on above: Performed By: #### L [id number] ####Software Designer: NICOLE BOWERS ([id number])[facility] KAMALJIT RITTMAN (SWRLAB)[address] [place] [address] [place] NEUTROPHILS ABSOLUTE 5.8 10*3/uL Normal 1.8-7.5 [facility] Comment on above: Performed By: #### L [id number] ####Software Designer: NICOLE BOWERS ([id number])[facility]ENTERKeyon YEH RITTMAN (SWRLAB)[address] [place] [address] [place] Neutrophils/100 WBC (Bld) 72.1 % Normal 38.0-82.0 [facility] Comment on above: Performed By: #### L [id number] ####Software Designer: NICOLE BOWERS ([id number])[facility]ENTERKeyon YEH RITTMAN (SWRLAB)[address] [place] [address] NRBC 0.0 /100 WBCs Normal 0.0-2.0 [facility] Comment on above: Performed By: #### L [id number] ####Software Designer: NICOLE BOWERS ([id number])[facility]ENTERKeyon YEH RITTMAN (SWRLAB)[address] [place] [address] Platelet mean volume (Bld) [Entitic vol] 9.0 fL Normal 9.0-12.7 [facility] Comment on above: Result Comment: MPV is a calculated measurement using platelet volume ratio Performed By: #### L [id number] ####Software Designer: NICOLE BOWERS ([id number])[facility]ENTERKeyon YEH RITTMAN (SWRLAB)[address] [place] [address] Platelets (Bld) [#/Vol] 277 10*3/uL Normal 140-440 [facility] Comment on above: Performed By: #### L [id number] ####Software Designer: NICOLE BOWERS ([id number])[facility]ENTERKeyon YEH RITTMAN (SWRLAB)[address] [place] [address] RBC (Bld) [#/Vol] 3.85 10*6/uL Low 4.40-5.90 [facility] Comment on above: Performed By: #### L [id number] ####Software Designer: NICOLE BOWERS ([id number])[facility] (SWRLAB)[address] [place] [address] WBC (Bld) [#/Vol] 8.0 10*3/uL Normal 3.6-10.7 [facility] Comment on above: Performed By: #### L [id number] ####Software Designer: NICOLE PATELMarguerite ([id number])[facility]ITALKAMALJIT VIKKIT[facility] (SWRLAB)[address] [place] [address] CT CHEST ANGIOGRAM W AND/OR WO IV CONTRASTon 04-28-2024 CT CHEST ANGIOGRAM W AND/OR WO IV CONTRAST Normal [facility] CTA Chest vessels WO and W c ontrast Blossom 04-28-[address] scan of the chest for evidence of acute pulmonary embolism. 2. Cardiomegaly with pulmonary vascular congestion and trace bilateral pleural effusions with mild atelectatic changes right lung base Report Dictated on Electronically Signed By: Jose Raul Petersen MD Electronically Signed Date/Time: 04/28/2024 5:28 AM [facility] [employer] Patient Name: CARLO MEDINA : 1980 [facility]#: [id number] Exam Date/Time: 04/28/2024 04:58 Procedure: CT CHEST ANGIOGRAM W AND/OR WO IV CONTRAST Ordering Provider: LE DOUGLAS Reason For Exam: chest pain, positive dimer. RLL rhonchi. PNA vs PE. Reasons for examination: Chest pain/ shortness of breath. CT scan of the chest were performed with bolus contrast and high resolution scans for CT pulmonary angiographic study, with images post-processed by myself on [employer] workstation, with 3D - volume rendered CT [...] subsegmental, peripheral emboli, but none are seen. [facility] Jose Raul Petersen MD - 04/28/2024 Patient Name: [facility] 1980 [id number] Exam Date/Time: 04/28/2024 04:58 Procedure: CT CHEST ANGIOGRAM W AND/OR WO IV CONTRAST Ordering Provider: LE DOUGLAS Reason For Exam: chest pain, positive dimer. RLL rhonchi. PNA vs PE. Reasons for examination: Chest pain/ shortness of breath. CT scan of the chest were performed with bolus contrast and high resolution scans for CT pulmonary angiographic study, with images post-processed by myself on [employer] workstation, with 3D - volume rendered CT [...] Electronically Signed Date/Time: 04/28/2024 5:28 AM EDT [facility] Radiology Study observation (narrative) [facility] Consulton 04-28-2024 Consult Normal [facility] Consult Normal [facility] D-DIMER,QUANTITATIVEon 04-28 D-DIMER, INNOVANCE 1.97 mg/L High <0.50 [facility] Comment on above: Result Comment: ALEJANDRO Aleman COMMENTS:Innovance D-Dimer values of <0.50 mg/L FEU can be used in combination with a pre-test probability model (e.g. Well's) to exclude pulmonary embolism (PE) disease, as well as an aid in the diagnosis of deep vein thrombosis (DVT). Performed By: #### L [id number] ####Software Designer: NICOLE BOWERS ([id number])[facility] ([facility])[address] [place] [address] ECG 12-LEADon 04-28-2024 ECG 12-LEAD Normal [facility] ED Nursing Noteon 04-28-2024 ED Nursing Note Phoned [facility]. Hand off report given. Normal [facility] ED Nursing Note Phoned [facility] ED. No answer. Normal [facility] ED Nursing Note Patient signed transfer papers and instructions given to patient and significant other. Patient traveling by private vehicle. IV wrapped in coban. Normal [facility] ED Nursing Note Normal [facility] ED Provider Noteon ED Provider Note Normal [facility] Fibrin D-dimer FEU (PPP) [Ma ss/Vol]on 04-28-2024 Interpretation and review of laboratory results Abnormal [facility] D-Dimer values of <0.50 mg/L FEU can be used in combination with a pre-test probability model (e.g. Well's) to exclude pulmonary embolism (PE) disease, as well as an aid in the diagnosis of deep vein thrombosis (DVT). [facility] GROUP A STREP SCREEN BY PCRo n 04-28-2024 GROUP A STREP SCREEN BY PCR GROUP A STREP SCREEN BY PCR Reference Not Detected Not Detected ORDER COMMENTS: Methodology: real-time PCR Normal [facility] Comment on above: Performed By: #### L [id number] ####Software Designer: NICOLE BOWERS ([id number])[facility] (RLAB)[address] [place] [address] LEGIONELLA AND STREPTOCOCCUS URINE ANTIGENon 04-28-2024 LEGIONELLA AND STREPTOCOCCUS URINE ANTIGEN Normal [facility] Comment on above: Performed By: #### L [id number] ####Software Designer: NICOLE BOWERS ([id number])[facility] [place] [address] Laboratory - Chemistry and C hemistry - challengeon 04-28-2024 Procalcitonin [Mass/Vol] 0.04 ng/mL 0.00 - 0.09 ng/mL [facility] Troponin I.cardiac [Mass/Vol] 0.032 ng/mL NINF - 0.034 ng/mL [facility] Troponin I.cardiac [Mass/Vol] 0.025 ng/mL NINF - 0.034 ng/mL [facility] Troponin I.cardiac [Mass/Vol] 0.02 ng/mL NINF - 0.034 ng/mL [facility] Laboratory - Coagulationon 1 Fibrin D-dimer FEU (PPP) [Mass/Vol] 1.97 mg/L High NINF - 0.50 mg/L [facility] Laboratory - Microbiology an d Antimicrobial susceptibilityon 04-28-2024 Bacteria identified Aer cx Nom (Lower resp) Culture canceled due to poor specimen quality. Recollect if clinically indicated. [facility] FLUAV RNA DEENA+probe Ql (Resp) Not detected Not Detected [facility] FLUBV RNA DEENA+probe Ql (Resp) Not detected Not Detected [facility] RSV RNA DEENA+probe Ql (Resp) Not detected Not Detected [facility] SARS-CoV-2 (COVID-19) RNA DEENA+probe Ql (Resp) Not detected Not Detected [facility] SARS-CoV-2 (COVID-19) RNA DEENA+probe Ql (Unsp spec) Methodology: real-time, RT-PCR The SARS-CoV-2, Flu A/B, and RSV Combo assay is intended for in vitro diagnostic use under the FDA Emergency Use Authorization (EUA). This test has not been FDA cleared or approved. In compliance with this authorization, please visit www.fda.gov/media/384 920/download or www.fda.gov/media/246 639/download to access the applicable information sheets. [facility] [employer] NT PRO BNPon 04-28-2024 Natriuretic peptide B (Bld) [Mass/Vol] 87877 pg/mL High <20-100 [facility] [employer] [facility] Comment on above: Performed By: #### L [id number], [id number], [id number] ####Software Designer: NICOLE BOWERS ([id number])[facility] (SWRLAB)[address] [place] [address] Natriuretic peptide B [Mass/ Vol]on 04-28-2024 Interpretation and review of laboratory results Abnormal [facility] Natriuretic peptide B (Bld) [Mass/Vol] 54370 pg/mL High <20 - 100 [facility] No Panel InformationOrdered By: Tracey Cruz on 04-28-2024 Interpretation and review of laboratory results Normal [facility] Legionella pneumophila Ag Not detected Not Detected [facility] Streptococcus pneumoniae Ag Not detected Not Detected [facility] Methodology: Lateral flow enzyme immunoassay This assay is approved for detection of antigens to Streptococcus pneumoniae and Legionella pneumophila serogroup 1; however, other L. pneumophila serogroups may also be detected. [facility] No Panel Informationon 04-28 [facility] P Cylinder 60 degrees [facility] DE Interval 151 ms [facility] QRS Cylinder -18 degrees [facility] QRSD Interval 97 ms [facility] Healt h QT Interval 365 ms [facility] QTC Interval 455 ms [facility] T Wave Cylinder 189 degrees [facility] EKG shows NSR, LAD, normal DE QRS and QTC intervals. LVH. ST depressions in I, AVL, II, III, AVF, V3-V6. No STEMI. No SVT. Previous EKG is unchanged. All ST segment changes are old. Electronically Signed On 04-28-2024 03:05:52 EDT by Juan Carlos Le CV Juan Carlos Dimas MD - 04/28/2024 IMPRESSION: EKG shows NSR, LAD, normal [place] QRS and QTC intervals. LVH. ST depressions in I, AVL, II, III, AVF, V3-V6. No STEMI. No SVT. Previous EKG is unchanged. All ST segment changes are old. Electronically Signed On 04-28-2024 03:05:52 EDT by Juan Carlos eL [facility] Nursing Noteon 04-28-2024 Nursing Note Discharge instructions given to and reviewed in detail with patient and his significant other. Patient verbalized understanding of all discharge instructions, all questions answered at the best of my ability at this time. Normal [facility] Nursing Note Notified Karrie BASE WAD OPERATOR ADJUSTER CD U patient reported 2/10 chest pain, STAT EKG obtained. Karrie read EKG and stated it's okay, chronic findings. Administer nitroglycerin prn and morphine prn. Normal [facility] PROCALCITONIN TESTon 024 PROCALCITONIN 0.04 ng/mL Normal 0.00-0.09 [facility] Comment on above: Result Comment: ALEJANDRO Aleman COMMENTS:PCT <0.50 = Low risk of severe sepsis and/or septic shock.PCT >2.00 = High risk of severe sepsis and/or septic shock. Performed By: #### L [id number] ####Software Designer: NICOLE BOWERS ([id number])[facility])[address] [place] [address] Procalcitonin [Mass/Vol]on Interpretation and review of laboratory results Normal [facility] PCT <0.50 = Low risk of severe sepsis and/or septic shock. PCT >2.00 = High risk of severe sepsis and/or septic shock. [facility] RESPIRATORY CULTURE AND STAI Non 04-28-2024 RESPIRATORY CULTURE AND STAIN Normal [facility] Comment on above: Performed By: #### L [id number] ####Software Designer: NICOLE BOWERS ([id number])[facility] ([facility])[address] [place] [address] RESPIRATORY PATHOGENS PANEL BY PCRon 04-28-2024 RESPIRATORY PATHOGENS PANEL BY PCR Normal [facility] Comment on above: Performed By: #### L [id number] ####Software Designer: NICOLE BOWERS ([id number])[facility] ([facility])[address] [place] [address] Respiratory pathogens DNA an d RNA panel DEENA+non-probe (Nph)on 04-28-2024 Adenovirus Not detected Not Detected [facility] B. pertussis DNA DEENA+probe Ql (Unsp spec) Not detected Not Detected [facility] Bordetella parapertussis Not detected Not Detected [facility] Chlamydia pneumoniae Not detected Not Detected [facility] Coronavirus 229E Not detected Not Detected [facility] Coronavirus HKU1 Not detected Not Detected [facility] Coronavirus NL63 Not detected Not Detected [facility] Coronavirus OC43 Not detected Not Detected [facility] FLUAV RNA DEENA+non-probe Ql (Nph) Not detected Not Detected [facility] FLUBV RNA DEENA+non-probe Ql (Nph) Not detected Not Detected [facility] Human Metapneumovirus Not detected Not Detected [facility] Human Rhinovirus/Enterovirus Not detected Not Detected [facility] Interpretation and review of laboratory results Normal [facility] Mycoplasma pneumoniae Not detected Not Detected [facility] Parainfluenza 1 Not detected Not Detected [facility] Parainfluenza 2 Not detected Not Detected [facility] Parainfluenza 3 Not detected Not Detected [facility] Parainfluenza 4 Not detected Not Detected [facility] Respiratory Syncytial Virus Not detected Not Detected [facility] SARS-CoV-2 (COVID-19) RNA DEENA+non-probe Ql (Nph) Not detected Not Detected [facility] Methodology: Multiplex PCR [facility] S. pyogenes DNA DEENA+probe No m (Unsp spec)on 04-28-2024 Group A Strep Screen Not detected Not Detected [facility] Interpretation and review of laboratory results Normal [facility] Methodology: real-time PCR [facility] SARS-COV-2, FLU A/B, AND RSV COMBOon 04-28-2024 SARS-CoV-2 (COVID-19) RNA DEENA+probe Ql (Unsp spec) Normal [facility] Comment on above: Performed By: #### L [id number] ####Software Designer: NICOLE BOWERS ([id number])[facility] ([address] SARS-CoV-2, Flu A/B, and RSV Comboon 04-28-2024 Interpretation and review of laboratory results Normal [facility] TROPONIN I, HIGH SENSITIVITY on 04-28-2024 Troponin I.cardiac [Mass/Vol] 0.032 ng/mL Normal <0.034 [facility] Comment on above: Result Comment: ORDE R COMMENTS:Moderately Hemolyzed. Interpret TROPONIN I with caution.Patients with high levels of Biotin oral intake (ie >5 mg/day) may have falsely decreased Troponin levels. Performed By: #### L [id number] ####Software Designer: NICOLE BOWERS ([id number])[facility] ([facility])[address] [place] [address] Troponin I.cardiac [Mass/Vol] 0.025 ng/mL Normal <0.034 [facility] [employer] [facility] Comment on above: Result Comment: ALEJANDRO Aleman COMMENTS:Patients with high levels of Biotin oral intake (ie >5 mg/day) may have falsely decreased Troponin levels. Performed By: #### L [id number] ####Software Designer: NICOLE BOWERS ([id number])[facility]ITALKAMALJITJAMES J. [facility]ENTERAN (SWRLAB)[address] [place] [address] TROPONIN, WITH SERIAL REFLEX on 04-28-2024 Troponin I.cardiac [Mass/Vol] 0.020 ng/mL Normal <0.034 [facility] [employer] [facility] Comment on above: Result Comment: ALEJANDRO Aleman COMMENTS:Patients with high levels of Biotin oral intake (ie >5 mg/day) may have falsely decreased Troponin levels. Performed By: #### L AB15, [id number], [id number] ####Software Designer: NICOLE BOWERS ([id number])[facility] KAMALJIT RITAN (SWRLAB)[address] [place] [address] [place] Troponin I.cardiac [Mass/Vol ]on 04-28-2024 Interpretation and review of laboratory results Normal [facility] Moderately Hemolyzed . Interpret TROPONIN I with caution. Patients with high levels of Biotin oral intake (ie >5 mg/day) may have falsely decreased Troponin levels. [facility] [employer] [facility] Interpretation and review of laboratory results Normal [facility] [employer] Patients with high levels of Biotin oral intake (ie >5 mg/day) may have falsely decreased Troponin levels. [facility] [employer] Interpretation and review of laboratory results Normal [facility] Patients with high levels of Biotin oral intake (ie >5 mg/day) may have falsely decreased Troponin levels. [facility] [employer] Vital signson 04-28-2024 Heart rate 93 /min bpm [facility] [employer] XR Chest 2 Viewson Patient Name: CARLO [...] Electronically Signed Date/Time: 04/28/2024 3:53 AM EDT [facility] Jose Raul Petersen MD - 04/28/2024 [...] Electronically Signed Date/Time: 04/28/2024 3:53 AM EDT [facility] Radiology Study observation (narrative) [facility] XR Chest 2 ViewsOrdered By: Jose Raul Petersen on 04-28-2024 [facility] Work Phone: 04-27-2024 36 Normal [facility] [id number] 36 LMOM requesting return call, gave [facility] phone number also Normal [facility] [phone] 36 Lmom return call, if no insurance yet may be seen at [facility] with Dr Conklin. Will give number [phone] if needed [facility] 03-16-2024 36 Will call back Normal [facility] 03-08-2024 36 [facility] reached out to schedule Hospital Follow up appointment. [facility] offered assistance with financial assistance program until his Medicaid was active. Pt declined, stating he wants to wait until his Medicaid is active before scheduling a follow up. Normal [facility] 36 Normal [facility] BASIC METABOLIC PANELon 09-0 -2023 Anion gap [Moles/Vol] 12 mmol/L Normal 3-13 [facility] Comment on above: Performed By: #### L AB15, [id number] ####Software Designer: LESLEE HERNANDEZ ([id number])[facility]ENTER[facility] [place] (SBHLAB)[address] Calcium [Mass/Vol] 9.4 mg/dL Normal 8.4-10.4 [facility] Comment on above: Performed By: #### L AB15, [id number] ####Software Designer: LESLEE HERNANDEZ ([id number])[facility]ENTERKeyon [place] (SBHLAB)[address] Chloride [Moles/Vol] 104 mmol/L Normal 98-107 [facility] Comment on above: Performed By: #### L AB15, [id number] ####Software Designer: LESLEE HERNANDEZ ([id number])[facility]ENTERKey[facility] [place] (SBHLAB)[address] [place] [address] [place] CO2 [Moles/Vol] 22 mmol/L Normal 22-30 [facility] Comment on above: Performed By: #### L AB15, [id number] ####Software Designer: LESLEE HERNANDEZ ([id number])[facility]ENTERKeyon [place]BEF[place] (SBHLAB)[address] [place] [address] [place] Creatinine [Mass/Vol] 1.74 mg/dL High 0.66-1.25 [facility] Comment on above: Performed By: #### L AB15, [id number] ####Software Designer: LESLEE HERNANDEZ ([id number])[facility]ENTERKey[facility] [place] (SBHLAB)[address] [place] [address] [place] GLOMERULAR FILTRATION RATE ML/MIN/1.73 SQ M.PREDICTED 48.4 mL/min/1.73m*2 Low >60.0 [facility] Comment on above: Result Comment: Calc ulation based on the Chronic Kidney Disease Epidemiology Collaboration (CKD-EPI) equation refit without adjustment for race Performed By: #### L AB15, [id number] ####Software Designer: LESLEE HERNANDEZ ([id number])[facility]ENTERKey[facility] (SBHLAB)[address] Glucose [Mass/Vol] 113 mg/dL High 70-100 [facility] Comment on above: Performed By: #### L AB15, [id number] ####Software Designer: LESLEE HERNANDEZ ([id number])[facility]ENTERKey[facility] [place] (SBHLAB)[address] Potassium [Moles/Vol] 3.5 mmol/L Normal 3.5-5.1 [facility] Comment on above: Performed By: #### L AB15, [id number] ####Software Designer: LESLEE HERNANDEZ ([id number])[facility] (SBHLAB)[address] Sodium [Moles/Vol] 138 mmol/L Normal 135-145 [facility] Comment on above: Performed By: #### L AB15, [id number] ####Software Designer: LESLEE HERNANDEZ ([id number])[facility] (SBHL[facility])[address] Urea nitrogen [Mass/Vol] 27 mg/dL High 9-20 [facility] Comment on above: Performed By: #### L AB15, [id number] ####Software Designer: LESLEE HERNANDEZ ([id number])[facility] (SBHLAB)[address] Basic metabolic 1998 panelon 03-07-2024 Anion gap [Moles/Vol] 12 mmol/L 3 - 13 mmol/L [facility] Calcium [Mass/Vol] 9.4 mg/dL 8.4 - 10. 4 mg/dL [facility] [facility] Chloride [Moles/Vol] 104 mmol/L 98 - 10 7 mmol/L [facility] CO2 [Moles/Vol] 22 mmol/L 22 - 30 mmol/L [facility] Creatinine [Mass/Vol] 1.74 mg/dL High 0.66 - 1.25 mg/dL [facility] GFR/1.73 sq M.predicted (S/P/Bld) [Vol rate/Area] 48.4 mL/min Low - PINF [facility] Comment on above: Calculation based on the Chronic Kidney Disease Epidemiology Collaboration (CKD-EPI) equation refit without adjustment for race Glucose [Mass/Vol] 113 mg/dL High 70 - 100 mg/dL [facility] Interpretation and review of laboratory results Abnormal [facility] Potassium [Moles/Vol] 3.5 mmol/L 3.5 - 5.1 mmol/L [facility] Sodium [Moles/Vol] 138 mmol/L 135 - 145 mmol/L [facility] Urea nitrogen [Mass/Vol] 27 mg/dL High 9 - 20 mg/dL [facility] CBC (HEMOGRAM)on 03-07-2024 Erythrocyte distribution width (RBC) [Ratio] 11.6 % Normal 11.5-15.0 [facility] Comment on above: Performed By: #### L [id number] ####Software Designer: LESLEE HERNANDEZ ([id number])[facility] ([facility])[address] [place] [address] Hematocrit (Bld) [Volume fraction] 45.5 % Normal 40.0-52.0 [facility] Comment on above: Performed By: #### L [id number] ####Software Designer: LESLEE HERNANDEZ ([id number])[facility] ([facility])[address] [place] [address] Hemoglobin (Bld) [Mass/Vol] 15.5 g/dL Normal 13.0-18.0 [facility] Comment on above: Performed By: #### L [id number] ####Software Designer: LESLEE HERNANDEZ ([id number])[facility] ([facility])[address] [place] [address] MCH (RBC) [Entitic mass] 31.5 pg Normal 26.0-34.0 [facility] Comment on above: Performed By: #### L [id number] ####Software Designer: LESLEE HERNANDEZ ([id number])[facility] (SBHLAB)[address] MCHC 34.1 % Normal 30.5-36.0 [facility] Comment on above: Performed By: #### L [id number] ####Software Designer: LESLEE HERNANDEZ ([id number])[facility]EN[facility] (SBHLAB)[address] MCV (RBC) [Entitic vol] 92.5 fL Normal 77.0-99.0 [facility] Comment on above: Performed By: #### L [id number] ####Software Designer: LESLEE HERNANDEZ ([id number])[facility]ENTERKeyon [facility]ITAL[facility] (SBHLAB)[address] Platelet mean volume (Bld) [Entitic vol] 9.0 fL Normal 9.0-12.7 [facility] Comment on above: Performed By: #### L [id number] ####Software Designer: LESLEE HERNANDEZ ([id number])[facility] CENTERKeyon [facility] HOSPITALMarguerite (SBHLAB)[address] Platelets (Bld) [#/Vol] 331 10*3/uL Normal 140-440 [facility] Comment on above: Performed By: #### L [id number] ####Software Designer: LESLEE HERNANDEZ ([id number])[facility]ENTERKeyon [facility]DMIMBR[facility] HOSPITALMarguerite (SBHLAB)[address] RBC (Bld) [#/Vol] 4.92 10*6/uL Normal 4.40-5.90 [facility] Comment on above: Performed By: #### L [id number] ####Software Designer: LESLEE HERNANDEZ ([id number])[facility]ENTERKeyon [facility]DMIM[facility] HOSPITALN (SBHLAB)[address] [place] [address] [place] WBC (Bld) [#/Vol] 4.4 10*3/uL Normal 3.6-10.7 [facility] Comment on above: Performed By: #### L [id number] ####Software Designer: LSELEE HERNANDEZ ([id number])[facility] (SBHL[facility])[address] CBC panel Auto (Bld)Ordered By: Roberto Puckett on 03-07-2024 Erythrocyte distribution width (RBC) [Ratio] 11.6 % 11.5 - 15.0 % [facility] Hematocrit (Bld) [Volume fraction] 45.5 % 40.0 - 52.0 % [facility] Hemoglobin (Bld) [Mass/Vol] 15.5 g/dL 13.0 - 18.0 g/dL [facility] Interpretation and review of laboratory results Normal [facility] MCH (RBC) [Entitic mass] 31.5 pg 26.0 - 34.0 pg [facility] MCHC (RBC) [Mass/Vol] 34.1 % 30.5 - 36.0 % [facility] MCV (RBC) [Entitic vol] 92.5 fL 77.0 - 99.0 fL [facility] Platelet mean volume (Bld) [Entitic vol] 9.0 fL 9.0 - 12.7 fL [facility] Platelets (Bld) [#/Vol] 331 10*3/uL 140 - 440 10*3/uL [facility] RBC (Bld) [#/Vol] 4.92 10*6/uL 4.40 - 5.9 0 10*6/uL [facility] WBC (Bld) [#/Vol] 4.4 10*3/uL 3.6 - 10.7 10*3/uL [facility] Consulton 03-07-2024 Consult Normal [facility] ECG 12-LEADon 03-07-2024 ECG 12-LEAD IMPRESSION: Sinus rhythm Probable left atrial enlargement LVH with secondary repolarization abnormality Electronically Signed On 03-07-2024 09:21:22 EDT by Ming Nayak Normal [facility] IDNon 03-07-2024 IDN The patient is Moderately Stable - Low risk of patient condition declining or worsening The patient's goals for the shift include rest The clinical goals for the shift include comfort Normal [facility] Laboratory - Chemistry and C hemistry - challengeon 03-07-2024 Magnesium [Mass/Vol] 2.1 mg/dL 1.6 - 2 .3 mg/dL [facility] MAGNESIUMon 03-07-2024 Magnesium [Mass/Vol] 2.1 mg/dL Normal 1.6-2.3 [facility] [employer] [facility] Comment on above: Performed By: #### L AB15, [id number] ####Software Designer: LESLEE HERNANDEZ ([id number])[facility] (SB[facility])[address] [place] [address] Magnesium [Mass/Vol]on 03-07 Interpretation and review of laboratory results Normal [facility] [employer] No Panel InformationOrdered By: Ming Nayak on 03-07-2024 P Cylinder 65 degrees [facility] Work Phone: DE Interval 140 ms [employer] Work Phone: QRS Cylinder -11 degrees [employer] Phone: QRSD Interval 104 ms [employer] Work Phone: QT Interval 365 ms [employer] Work Phone: QTC Interval 465 ms [employer] Work Phone: T Wave Cylinder 139 degrees [employer] Work Phone: [employer] Phone: No Panel Informationon 03-07 Sinus rhythm Probable left atrial enlargement LVH with secondary repolarization abnormality Electronically Signed On 03-07-2024 09:21:22 EDT by Ming Concepcion MD - 03/07/2024 IMPRESSION: Sinus rhythm Probable left atrial enlargement LVH with secondary repolarization abnormality Electronically Signed On 03-07-2024 09:21:22 EDT by Ming Nayak [facility] [employer] Progress Noteon 03-07-2024 Progress Note Normal [facility] [employer] [facility] Vital signsOrdered By: Nilsa Nayak on 03-07-2024 Heart rate 98 /min bpm [facility] Work Phone: BASIC METABOLIC PANELon Anion gap [Moles/Vol] 10 mmol/L Normal 3-13 [facility] Comment on above: Performed By: #### L AB15, [id number] ####Software Designer: LESLEE HERNANDEZ ([id number])[facility] CENTERKeyon MCFADDENN (SBHLAB)[address] Calcium [Mass/Vol] 9.6 mg/dL Normal 8.4-10.4 [facility] Comment on above: Performed By: #### L AB15, [id number] ####Software Designer: LESLEE HRENANDEZ ([id number])[facility] CENTERA [place] (SBHLAB)[address] Chloride [Moles/Vol] 102 mmol/L Normal 98-107 [facility] Comment on above: Performed By: #### L AB15, [id number] ####Software Designer: LESLEE HERNANDEZ ([id number])[facility]ENTERA [place] (SBHLAB)[address] CO2 [Moles/Vol] 28 mmol/L Normal 22-30 [facility] Comment on above: Performed By: #### L AB15, [id number] ####Software Designer: ELSLEE HERNANDEZ ([id number])[facility]ENTERA LELOMIMBRES MEM[facility]IAL HOSPITALN (SBHLAB)[address] Creatinine [Mass/Vol] 1.71 mg/dL High 0.66-1.25 [facility] Comment on above: Performed By: #### L AB15, [id number] ####Software Designer: LESLEE HERNANDEZ ([id number])[facility]ENTERA [place] (SBHLAB)[address] [place] [address] [place] GLOMERULAR FILTRATION RATE ML/MIN/1.73 SQ M.PREDICTED 49.4 mL/min/1.73m*2 Low >60.0 [facility] Comment on above: Result Comment: Calc ulation based on the Chronic Kidney Disease Epidemiology Collaboration (CKD-EPI) equation refit without adjustment for race Performed By: #### L AB15, [id number] ####Software Designer: LESLEE HERNANDEZ ([id number])[facility]ENTERA [place] (SBHLAB)[address] [place] [address] [place] Glucose [Mass/Vol] 102 mg/dL High 70-100 [facility] Comment on above: Performed By: #### L AB15, [id number] ####Software Designer: LESLEE TORRESCER ([id number])[facility]ENTERA [place] (SBHLAB)[address] Potassium [Moles/Vol] 3.8 mmol/L Normal 3.5-5.1 [facility] Comment on above: Performed By: #### L AB15, [id number] ####Software Designer: LESLEE HERNANDEZ ([id number])[facility] [place] (SBHLAB)[address] Sodium [Moles/Vol] 141 mmol/L Normal 135-145 [facility] Comment on above: Performed By: #### L AB15, [id number] ####Software Designer: LESLEE HERNANDEZ ([id number])[facility]A [facility] (SB[facility])[address] Urea nitrogen [Mass/Vol] 22 mg/dL High 9-20 [facility] Comment on above: Performed By: #### L AB15, [id number] ####Software Designer: LESLEE HERNANDEZ ([id number])[facility]A [facility] (SBHLAB)[address] Basic metabolic 1998 panelon 03-06-2024 Anion gap [Moles/Vol] 10 mmol/L 3 - 13 mmol/L [facility] Calcium [Mass/Vol] 9.6 mg/dL 8.4 - 10. 4 mg/dL [facility] Chloride [Moles/Vol] 102 mmol/L 98 - 10 7 mmol/L [facility] CO2 [Moles/Vol] 28 mmol/L 22 - 30 mmol/L [facility] Creatinine [Mass/Vol] 1.71 mg/dL High 0.66 - 1.25 mg/dL [facility] GFR/1.73 sq M.predicted (S/P/Bld) [Vol rate/Area] 49.4 mL/min Low - PINF [facility] Comment on above: Calculation based on the Chronic Kidney Disease Epidemiology Collaboration (CKD-EPI) equation refit without adjustment for race Glucose [Mass/Vol] 102 mg/dL High 70 - 100 mg/dL [facility] Interpretation and review of laboratory results Abnormal [facility] Potassium [Moles/Vol] 3.8 mmol/L 3.5 - 5.1 mmol/L [facility] Sodium [Moles/Vol] 141 mmol/L 135 - 145 mmol/L [facility] Urea nitrogen [Mass/Vol] 22 mg/dL High 9 - 20 mg/dL [facility] Health Consulton 03-06-2024 Consult Normal [facility] ED Nursing Noteon 03-06-2024 ED Nursing Note Called [facility] to inform of pt refusing to go by squad and wants to go private vehicle. Pauline Martinez RN 03/06/24 0824 Normal [facility] IDNon 03-06-2024 IDN Normal [facility] Laboratory - Chemistry and C hemistry - challengeon 03-06-2024 Magnesium [Mass/Vol] 2.2 mg/dL 1.6 - 2 .3 mg/dL [facility] TSH Qn 4.380 m[IU]/L [facility] Healt h MAGNESIUMon 03-06-2024 Magnesium [Mass/Vol] 2.2 mg/dL Normal 1.6-2.3 [facility] Comment on above: Performed By: #### L AB15, [id number] ####Software Designer: LESLEE HERNANDEZ ([id number])[facility] (SB[facility])[address] [place] [address] Magnesium [Mass/Vol]on 03-06 Interpretation and review of laboratory results Normal [facility] No Panel Informationon 03-06 [facility] TSH Qnon 03-06-2024 Interpretation and review of laboratory results Normal [facility] BASIC METABOLIC PANELon Anion gap [Moles/Vol] 9 mmol/L Normal 3-13 [facility] Comment on above: Performed By: #### L AB15, [id number], NNP635, [id number] ####Software Designer: NICOLE BOWERS ([id number])[facility] KAMALJITJAMES J. PETERS VA MEDICAL CENTERNELLY (SWRLAB)[address] [place] [address] Calcium [Mass/Vol] 8.9 mg/dL Normal 8.4-10.4 [facility] Comment on above: Performed By: #### L AB15, [id number], NXJ305, [id number] ####Software Designer: NICOLE BOWERS ([id number])[facility] CENTERKeyon YEH R[place]TMAN (SWRLAB)[address] [place] [address] [place] Chloride [Moles/Vol] 104 mmol/L Normal 98-107 [facility] Comment on above: Performed By: #### L AB15, [id number], [id number], [id number] ####Software Designer: NICOLE BOWERS ([id number])[facility] CENTERKeyon [place]H [place] (SWRLAB)[address] [place] [address] [place] CO2 [Moles/Vol] 25 mmol/L Normal 22-30 [facility] Comment on above: Performed By: #### Pedro AB15, ATU281, VGN691, NMD992 ####Software Designer: NICOLE BOWERS ([id number])[facility] CENTERKeyon [place]H [place] (SWRLAB)[address] [place] [address] [place] Creatinine [Mass/Vol] 1.65 mg/dL High 0.66-1.25 [facility] Comment on above: Performed By: #### L AB15, YEF984, LDW388, TIK532 ####Software Designer: NICOLE BOWERS ([id number])[facility]ENTERKeyon YEH [place] (SWRLAB)[address] [place] [address] [place] GLOMERULAR FILTRATION RATE ML/MIN/1.73 SQ M.PREDICTED 51.5 mL/min/1.73m*2 Low >60.0 [facility] Comment on above: Result Comment: Calc ulation based on the Chronic Kidney Disease Epidemiology Collaboration (CKD-EPI) equation refit without adjustment for race Performed By: #### L AB15, [id number], DLO633, ZKE232 ####Software Designer: NICOLE BOWERS ([id number])[facility] CENTERKeyon RODRIGESKAMALJIT RITTMAN (SWRLAB)[address] [place] [address] [place] Glucose [Mass/Vol] 103 mg/dL High 70-100 [facility] Comment on above: Performed By: #### L AB15, TSH652, QRV229, IVP197 ####Software Designer: NICOLE BOWERS ([id number])[facility] CENTERKeyon FLOREZTMAN (SWRLAB)[address] Potassium [Moles/Vol] 3.9 mmol/L Normal 3.5-5.1 [facility] Comment on above: Performed By: #### L AB15, [id number], [id number], MBG026 ####Software Designer: NICOLE BOWERS ([id number])[facility] CENTERKeyon [place] (SWRLAB)[address] Sodium [Moles/Vol] 138 mmol/L Normal 135-145 [facility] Comment on above: Performed By: #### L AB15, APY044, LAE160, ORJ200 ####Software Designer: NICOLE BOWERS ([id number])[facility]ENTERKeyon [place] (SWRLAB)[address] Urea nitrogen [Mass/Vol] 22 mg/dL High 9-20 [facility] Comment on above: Performed By: #### L AB15, SMN185, GWL063, BGG337 ####Software Designer: NICOLE BOWERS ([id number])[facility] CENTERKeyon FL[place] (SWRLAB)[address] Basic metabolic 1998 panelon 03-05-2024 Anion gap [Moles/Vol] 9 mmol/L 3 - 13 mmol/L [facility] Calcium [Mass/Vol] 8.9 mg/dL 8.4 - 10. 4 mg/dL [facility] Chloride [Moles/Vol] 104 mmol/L 98 - 10 7 mmol/L [facility] CO2 [Moles/Vol] 25 mmol/L 22 - 30 mmol/L [facility] Creatinine [Mass/Vol] 1.65 mg/dL High 0.66 - 1.25 mg/dL [facility] GFR/1.73 sq M.predicted (S/P/Bld) [Vol rate/Area] 51.5 mL/min Low - PINF [facility] Comment on above: Calculation based on the Chronic Kidney Disease Epidemiology Collaboration (CKD-EPI) equation refit without adjustment for race Glucose [Mass/Vol] 103 mg/dL High 70 - 100 mg/dL [facility] Interpretation and review of laboratory results Abnormal [facility] Potassium [Moles/Vol] 3.9 mmol/L 3.5 - 5.1 mmol/L [facility] Sodium [Moles/Vol] 138 mmol/L 135 - 145 mmol/L [facility] Urea nitrogen [Mass/Vol] 22 mg/dL High 9 - 20 mg/dL [facility] CBC (HEMOGRAM)on 03-05-2024 Erythrocyte distribution width (RBC) [Ratio] 11.7 % Normal 11.5-15.0 [facility] Comment on above: Performed By: #### L AB294 ####Software Designer: NICOLE BOWERS ([id number])[facility] CENTERKeyon FLOREZTMAN (SWRLAB)[address] [place] [address] Hematocrit (Bld) [Volume fraction] 39.2 % Low 40.0-52.0 [facility] Comment on above: Performed By: #### L AB294 ####Software Designer: NICOLE BOWERS ([id number])[facility] CENTERKeyon KAMALJIT RITTMAN (SWRLAB)[address] [place] [address] Hemoglobin (Bld) [Mass/Vol] 13.4 g/dL Normal 13.0-18.0 [facility] Comment on above: Performed By: #### L AB294 ####Software Designer: NICOLE BOWERS ([id number])[facility] CENTERKeyon YEH RITTMAN (SWRLAB)[address] [place] [address] MCH (RBC) [Entitic mass] 31.8 pg Normal 26.0-34.0 [facility] Comment on above: Performed By: #### L AB294 ####Software Designer: NICOLE BOWERS ([id number])[facility] KAMALJIT RITTMAN (SWRLAB)[address] [place] [address] MCHC 34.2 % Normal 30.5-36.0 [facility] Comment on above: Performed By: #### L AB294 ####Software Designer: NICOLE BOWERS ([id number])P[facility] [place] (SWRLAB)[address] [place] [address] MCV (RBC) [Entitic vol] 93.1 fL Normal 77.0-99.0 [facility] Comment on above: Performed By: #### L AB294 ####Software Designer: NICOLE BOWERS ([id number])[facility] CENTERKeyon FLOREZTMAN (SWRLAB)[address] [place] [address] Platelet mean volume (Bld) [Entitic vol] 9.2 fL Normal 9.0-12.7 [facility] Comment on above: Result Comment: MPV is a calculated measurement using platelet volume ratio Performed By: #### L AB294 ####Software Designer: NICOLE BOWERS ([id number])[facility] CENTERKeyon FLOREZTMAN (SWRLAB)[address] [place] [address] [place] Platelets (Bld) [#/Vol] 313 10*3/uL Normal 140-440 [facility] Comment on above: Performed By: #### L AB294 ####Software Designer: NICOLE BOWERS ([id number])[facility] CENTERKeyon FLOREZTMAN (SWRLAB)[address] [place] [address] [place] RBC (Bld) [#/Vol] 4.21 10*6/uL Low 4.40-5.90 [facility] Comment on above: Performed By: #### L AB294 ####Software Designer: NICOLE BOWERS ([id number])[facility]ENTERKeyon YEH RITTMAN (SWRLAB)[address] [place] [address] [place] WBC (Bld) [#/Vol] 5.5 10*3/uL Normal 3.6-10.7 [facility] Comment on above: Performed By: #### L AB294 ####Software Designer: NICOLE BOWERS ([id number])[facility] LIONEL (SWRLAB)[address] CBC panel Auto (Bld)on 03-05 Erythrocyte distribution width (RBC) [Ratio] 11.7 % 11.5 - 15.0 % [facility] Hematocrit (Bld) [Volume fraction] 39.2 % Low 40.0 - 52.0 % [facility] Hemoglobin (Bld) [Mass/Vol] 13.4 g/dL 13.0 - 18.0 g/dL [facility] Interpretation and review of laboratory results Abnormal [facility] MCH (RBC) [Entitic mass] 31.8 pg 26.0 - 34.0 pg [facility] MCHC (RBC) [Mass/Vol] 34.2 % 30.5 - 36.0 % [facility] MCV (RBC) [Entitic vol] 93.1 fL 77.0 - 99.0 fL [facility] Platelet mean volume (Bld) [Entitic vol] 9.2 fL 9.0 - 12.7 fL [facility] Comment on above: MPV is a calculated measurement using platelet volume ratio Platelets (Bld) [#/Vol] 313 10*3/uL 140 - 440 10*3/uL [facility] RBC (Bld) [#/Vol] 4.21 10*6/uL Low 4.40 - 5.9 0 10*6/uL [facility] WBC (Bld) [#/Vol] 5.5 10*3/uL 3.6 - 10.7 10*3/uL [facility] CHEST ANGIOGRAM W AND/OR WO IV CONTRASTon 03-05-2024 CT CHEST ANGIOGRAM W AND/OR WO IV CONTRAST Normal [facility] CTA Chest vessels WO and W [...] Electronically Signed Date/Time: 03/05/2024 11:53 PM EDT [facility] Name[facility] 1980 [id number] Exam Date/Time: 03/05/2024 23:42 Procedure: CT CHEST [...] unremarkable. Degenerative change in the thoracic spine. [facility] Nir Shen MD - 03/05/2024 Patient Name: CARLO MEDINA : 1980 Exam Date/Time: 03/05/2024 23:42 Procedure: CT CHEST [...] Electronically Signed Date/Time: 03/05/2024 11:53 PM EDT [facility] Radiology Study observation (narrative) [facility] D-DIMER,QUANTITATIVEon 03-05 D-DIMER, INNOVANCE 1.03 mg/L High <0.50 [facility] Comment on above: Result Comment: ALEJANDRO Aleman COMMENTS:[employer] D-Dimer values of <0.50 mg/L FEU can be used in combination with a pre-test probability model (e.g. Well's) to exclude pulmonary embolism (PE) disease, as well as an aid in the diagnosis of deep vein thrombosis (DVT). Performed By: #### L [id number] ####Software Designer: NICOLE BOWERS ([id number])[facility] LIONEL (SWRLAB)[address] [place] [address] ECG 12-LEADon 03-05-2024 ECG 12-LEAD IMPRESSION: Sinus tachycardia Left atrial enlargement LVH with secondary repolarization abnormality Electronically Signed On 03-05-2024 21:54:46 EDT by Shane Stern Normal [facility] ED Nursing Noteon 03-05-2024 ED Nursing Note 44 m to ED c/o sob since 7pm. Pt reports he was seen at [facility] for same complaints last week. Was d/c'd Friday with new diagnosis of CHF. Pt reports SOB improved while he was up walking. Pt arrived at 88% on rm air. Placed on 3L nc. Normal [facility] ED Nursing Note Pt removed by physician with sats maintained. Per Dr. Julien, pt is permitted to be driven by private car. IV access maintained intact in right AC with a coban wrap Marycarmen Dias RN 03/06/24 0830 Normal [facility] ED Nursing Note Normal [facility] ED Provider Noteon ED Provider Note Normal [facility] Fibrin D-dimer FEU (PPP) [Ma ss/Vol]on 03-05-2024 Interpretation and review of laboratory results Abnormal [facility] D-Dimer values of <0.50 mg/L FEU can be used in combination with a pre-test probability model (e.g. Well's) to exclude pulmonary embolism (PE) disease, as well as an aid in the diagnosis of deep vein thrombosis (DVT). [facility] - Chemistry and C hemistry - challengeon 03-05-2024 Troponin I.cardiac [Mass/Vol] 0.019 ng/mL NINF - 0.034 ng/mL [facility] [facility] - Coagulationon 0 03-05-2024 Fibrin D-dimer FEU (PPP) [Mass/Vol] 1.03 mg/L High NINF - 0.50 mg/L [facility] Laboratory - Microbiology an d Antimicrobial susceptibilityon 03-05-2024 FLUAV RNA DEENA+probe Ql (Resp) Not detected Not Detected [facility] FLUBV RNA DEENA+probe Ql (Resp) Not detected Not Detected [facility] RSV RNA DEENA+probe Ql (Resp) Not detected Not Detected [facility] SARS-CoV-2 (COVID-19) RNA DEENA+probe Ql (Resp) Not detected Not Detected [facility] SARS-CoV-2 (COVID-19) RNA DEENA+probe Ql (Unsp spec) Methodology: real-time, RT-PCR The SARS-CoV-2, Flu A/B, and RSV Combo assay is intended for in vitro diagnostic use under the FDA Emergency Use Authorization (EUA). This test has not been FDA cleared or approved. In compliance with this authorization, please visit www.fda.gov/media/890 435/download or www.fda.gov/media/704 436/download to access the applicable information sheets. [facility] [employer] NT PRO BNPon 03-05-2024 Natriuretic peptide B (Bld) [Mass/Vol] 9740 pg/mL High <20-100 [facility] Comment on above: Performed By: #### L AB15, [id number], [id number], [id number] ####Software Designer: NICOLE BOWERS ([id number])[facility] (SWRLAB)[address] [place] [address] Natriuretic peptide B [Mass/ Vol]on 03-05-2024 Interpretation and review of laboratory results Abnormal [facility] Natriuretic peptide B (Bld) [Mass/Vol] 9740 pg/mL High <20 - 100 [facility] No Panel Informationon 03-05 [facility] P Cylinder 54 degrees [facility] Health DE Interval 148 ms [facility] QRS Cylinder -11 degrees [facility] QRSD Interval 101 ms [facility] Healt h QT Interval 339 ms [facility] QTC Interval 463 ms [facility] T Wave Cylinder 117 degrees [facility] Sinus tachycardia Left atrial enlargement LVH with secondary repolarization abnormality Electronically Signed On 03-05-2024 21:54:46 EDT by Shane Stern CV Shane Perry MD - 03/05/2024 IMPRESSION: Sinus tachycardia Left atrial enlargement LVH with secondary repolarization abnormality Electronically Signed On 03-05-2024 21:54:46 EDT by Shane Stern [facility] SARS-COV-2, FLU A/B, AND RSV COMBOon 03-05-2024 SARS-CoV-2 (COVID-19) RNA DEENA+probe Ql (Unsp spec) Normal [facility] Comment on above: Performed By: #### L [id number] ####Software Designer: NICOLE BOWERS ([id number])[facility] [employer] (SWRLAB)[address] [place] [address] SARS-CoV-2, Flu A/B, and RSV Comboon 03-05-2024 Interpretation and review of laboratory results Normal [facility] THYROID STIMULATING HORMONEo n 03-05-2024 THYROID STIMULATING HORMONE 4.380 uIU/mL Normal 0.465-4.680 [facility] Comment on above: Performed By: #### L AB15, [id number], [id number], [id number] ####Software Designer: NICOLE BOWERS ([id number])[facility] [employer] (SWRLAB)[address] [place] [address] [place] TROPONIN Ion 03-05-2024 Troponin I.cardiac [Mass/Vol] 0.019 ng/mL Normal <0.034 [facility] Comment on above: Result Comment: ALEJANDRO Aleman COMMENTS:Patients with high levels of Biotin oral intake (ie >5 mg/day) may have falsely decreased Troponin levels. Performed By: #### L AB15, [id number], [id number], [id number] ####Software Designer: NICOLE BOWERS ([id number])[facility] [employer] (RLAB)[address] [place] [address] [place] Troponin I.cardiac [Mass/Vol ]on 03-05-2024 Interpretation and review of laboratory results Normal [facility] Patients with high levels of Biotin oral intake (ie >5 mg/day) may have falsely decreased Troponin levels. [facility] Vital signson 03-05-2024 Heart rate 112 /min bpm [facility] XR Chest Single viewon 03-05 1. Findings compatible with vascular congestion and interstitial edema, in the appropriate clinical setting, versus nonspecific postinflammatory change and bronchitis, with perihilar infiltrates, similar to comparison. Clinical correlation and follow-up as indicated. Report Dictated on Electronically Signed By: Nir Shen MD Electronically Signed Date/Time: 03/05/2024 10:35 PM [facility] [employer] Patient Name: CARLO MEDINA : 1980 [...] change again noted in the thoracic spine. [facility] Nir Shen MD - 03/05/2024 Patient [...] Electronically Signed Date/Time: 03/05/2024 10:35 PM EDT [facility] Radiology Study observation (narrative) [facility] XR Chest Single viewOrdered By: Nir Shen on 03-05-2024 [facility] [employer] Work Phone: 36on 03-04-2024 36 Unable to contact patient X2 Normal [facility] 36on 03-02-2024 36 S: Patient admitted to: [facility] 02/28/24 B: Discharged on : 03/01/24 A: Hospital follow up call initiated to discuss any medication changes, follow up appointments and discharge instructions: Shortness of breath R: No contact x 1 at : [phone] Normal [facility] 36 Normal [facility] BASIC METABOLIC PANELon 09-0 Anion gap [Moles/Vol] 7 mmol/L Normal 3-13 [facility] Comment on above: Performed By: #### L AB15 ####Software Designer: LESLEE HERNANDEZ ([id number])[facility] CENTERKeyon [place] (SBHLAB)[address] Calcium [Mass/Vol] 8.7 mg/dL Normal 8.4-10.4 [facility] Comment on above: Performed By: #### L AB15 ####Software Designer: LESLEE HERNANDEZ ([id number])[facility] (SBHLAB)[address] Chloride [Moles/Vol] 106 mmol/L Normal 98-107 [facility] Comment on above: Performed By: #### L AB15 ####Software Designer: LESLEE HERNANDEZ ([id number])[facility] [place] (SBHLAB)[address] CO2 [Moles/Vol] 23 mmol/L Normal 22-30 [facility] Comment on above: Performed By: #### L AB15 ####Software Designer: LESLEE HERNANDEZ ([id number])[facility] (SBHLAB)[address] Creatinine [Mass/Vol] 1.56 mg/dL High 0.66-1.25 [facility] Comment on above: Performed By: #### L AB15 ####Software Designer: LESLEE HERNANDEZ ([id number])[facility] (SBHLAB)[address] GLOMERULAR FILTRATION RATE ML/MIN/1.73 SQ M.PREDICTED 55.1 mL/min/1.73m*2 Low >60.0 [facility] Comment on above: Result Comment: Calc ulation based on the Chronic Kidney Disease Epidemiology Collaboration (CKD-EPI) equation refit without adjustment for race Performed By: #### L AB15 ####Software Designer: LESLEE HERNANDEZ ([id number])[facility] CENTERKeyon [place]ALL[place] (SBHLAB)[address] Glucose [Mass/Vol] 103 mg/dL High 70-100 [facility] Comment on above: Performed By: #### L AB15 ####Software Designer: LESLEE HERNANDEZ ([id number])[facility] (SBAB)[address] Potassium [Moles/Vol] 3.7 mmol/L Normal 3.5-5.1 [facility] Comment on above: Performed By: #### L AB15 ####Software Designer: LESLEE HERNANDEZ ([id number])[facility] (SBAB)[address] Sodium [Moles/Vol] 136 mmol/L Normal 135-145 [facility] Comment on above: Performed By: #### L AB15 ####Software Designer: LESLEE HERNANDEZ ([id number])[facility] ([facility])[address] Urea nitrogen [Mass/Vol] 22 mg/dL High 9-20 [facility] Comment on above: Performed By: #### L AB15 ####Software Designer: LESLEE HENRANDEZ ([id number])[facility] ([facility])[address] Basic metabolic 1998 panelon 03-01-2024 Anion gap [Moles/Vol] 7 mmol/L 3 - 13 mmol/L [facility] Calcium [Mass/Vol] 8.7 mg/dL 8.4 - 10. 4 mg/dL [facility] Chloride [Moles/Vol] 106 mmol/L 98 - 10 7 mmol/L [facility] CO2 [Moles/Vol] 23 mmol/L 22 - 30 mmol/L [facility] Creatinine [Mass/Vol] 1.56 mg/dL High 0.66 - 1.25 mg/dL [facility] [employer] GFR/1.73 sq M.predicted (S/P/Bld) [Vol rate/Area] 55.1 mL/min Low - PINF [facility] Comment on above: Calculation based on the Chronic Kidney Disease Epidemiology Collaboration (CKD-EPI) equation refit without adjustment for race Glucose [Mass/Vol] 103 mg/dL High 70 - 100 mg/dL [facility] Interpretation and review of laboratory results Abnormal [facility] [employer] Potassium [Moles/Vol] 3.7 mmol/L 3.5 - 5.1 mmol/L [facility] [employer] Sodium [Moles/Vol] 136 mmol/L 135 - 145 mmol/L [facility] [employer] Urea nitrogen [Mass/Vol] 22 mg/dL High 9 - 20 mg/dL [facility] CBC W Auto Differential pane l (Bld)on 03-01-2024 Basophils (Bld) [#/Vol] 0.0 10*3/uL 0.0 - 0.2 10*3/uL [facility] [employer] Basophils/100 WBC (Bld) 0.4 % 0.0 - 2.0 % [facility] Eosinophils (Bld) [#/Vol] 0.1 10*3/uL 0.0 - 0.5 10*3/uL [facility] [employer] Eosinophils/100 WBC (Bld) 2.4 % 0.0 - 6.0 % [facility] Erythrocyte distribution width (RBC) [Ratio] 11.8 % 11.5 - 15.0 % [facility] Hematocrit (Bld) [Volume fraction] 40.3 % 40.0 - 52.0 % [facility] Hemoglobin (Bld) [Mass/Vol] 13.5 g/dL 13.0 - 18.0 g/dL [facility] Immature granulocytes (Bld) [#/Vol] 0.0 10*3/uL NINF - 0.1 10*3/uL [facility] [employer] Immature granulocytes/100 WBC (Bld) 0.2 % 0.0 - 2.0 % [facility] Interpretation and review of laboratory results Abnormal [facility] Lymphocytes (Bld) [#/Vol] 2.1 10*3/uL 1.0 - 4.3 10*3/uL [facility] [employer] Lymphocytes/100 WBC (Bld) 42.4 % 15.0 - 45.0 % [facility] MCH (RBC) [Entitic mass] 31.3 pg 26.0 - 34.0 pg [facility] MCHC (RBC) [Mass/Vol] 33.5 % 30.5 - 36.0 % [facility] MCV (RBC) [Entitic vol] 93.3 fL 77.0 - 99.0 fL [facility] Monocytes (Bld) [#/Vol] 0.5 10*3/uL 0.0 - 0.9 10*3/uL [facility] Monocytes/100 WBC (Bld) 10.1 % 5.0 - 13.0 % [facility] Neutrophils (Bld) [#/Vol] 2.2 10*3/uL 1.8 - 7.5 10*3/uL [facility] Neutrophils/100 WBC (Bld) 44.5 % 38.0 - 82.0 % [facility] Nucleated RBC/100 WBC (Bld) [Ratio] 0.0 % [facility] Platelet mean volume (Bld) [Entitic vol] 9.6 fL 9.0 - 12.7 fL [facility] Platelets (Bld) [#/Vol] 280 10*3/uL 140 - 440 10*3/uL [facility] RBC (Bld) [#/Vol] 4.32 10*6/uL Low 4.40 - 5.9 0 10*6/uL [facility] WBC (Bld) [#/Vol] 4.9 10*3/uL 3.6 - 10.7 10*3/uL [facility] CBC WITH AUTO DIFFERENTIALon 03-01-2024 Basophils (Bld) [#/Vol] 0.0 10*3/uL Normal 0.0-0.2 [facility] Comment on above: Performed By: #### L [id number] ####Software Designer: LESLEE HERNANDEZ ([id number])[facility]ENTERKeyon ALVAR[place] ([facility])[address] [place] [address] Basophils/100 WBC (Bld) 0.4 % Normal 0.0-2.0 [facility] Comment on above: Performed By: #### L [id number] ####Software Designer: LESLEE [id number])[facility]ENTERA [place] (SBHLAB)[address] Eosinophils (Bld) [#/Vol] 0.1 10*3/uL Normal 0.0-0.5 [facility] Comment on above: Performed By: #### L [id number] ####Software Designer: LESLEE HERNANDEZ ([id number])[facility]ENTERA [place] (SBHLAB)[address] Eosinophils/100 WBC (Bld) 2.4 % Normal 0.0-6.0 [facility] Comment on above: Performed By: #### L [id number] ####Software Designer: LESLEE HERNANDEZ ([id number])[facility]ENTERA [facility]IMBR[facility]OS[facility]ITALN (SBAB)[address] [place] [address] Erythrocyte distribution width (RBC) [Ratio] 11.8 % Normal 11.5-15.0 [facility] Comment on above: Performed By: #### L [id number] ####Software Designer: LESLEE HERNANDEZ ([id number])[facility]ENTERA [facility]BMIMBR[facility]OSPITALN (SBHLAB)[address] [place] [address] Hematocrit (Bld) [Volume fraction] 40.3 % Normal 40.0-52.0 [facility] Comment on above: Performed By: #### L [id number] ####Software Designer: LESLEE HERNANDEZ ([id number])[facility]ENTERA [facility]BMIMBR[facility]OSPITALN (SBHLAB)[address] [place] [address] Hemoglobin (Bld) [Mass/Vol] 13.5 g/dL Normal 13.0-18.0 [facility] Comment on above: Performed By: #### L [id number] ####Software Designer: LESLEE HERNANDEZ ([id number])[facility]ENTERA [place] (SBHLAB)[address] IMMATURE GRANS % 0.2 % Normal 0.0-2.0 [facility] Comment on above: Performed By: #### L [id number] ####Software Designer: LESLEE HERNANDEZ ([id number])[facility]A [place] (SBHLAB)[address] IMMATURE GRANS ABSOLUTE 0.0 10*3/uL Normal <0.1 [facility] Comment on above: Performed By: #### L [id number] ####Software Designer: LESLEE HERNANDEZ ([id number])[facility]A [facility]OS[facility]ITALN (SBHLAB)[address] Lymphocytes (Bld) [#/Vol] 2.1 10*3/uL Normal 1.0-4.3 [facility] Comment on above: Performed By: #### L [id number] ####Software Designer: LESLEE HERNANDEZ ([id number])[facility]A [facility]BMIM[facility]OS[facility]ITALN (SBHLAB)[address] Lymphocytes/100 WBC (Bld) 42.4 % Normal 15.0-45.0 [facility] Comment on above: Performed By: #### L [id number] ####Software Designer: LESLEE HERNANDEZ ([id number])[facility] CENTERKeyon [facility]OS[facility]ITALN (SBHLAB)[address] MCH (RBC) [Entitic mass] 31.3 pg Normal 26.0-34.0 [facility] Comment on above: Performed By: #### L [id number] ####Software Designer: LESLEE HERNANDEZ ([id number])[facility] CENTERKeyon [facility] (SBHLAB)[address] MCHC 33.5 % Normal 30.5-36.0 [facility] Comment on above: Performed By: #### L [id number] ####Software Designer: LESLEE HERNANDEZ ([id number])[facility]A [facility]ITALN (SBHLAB)[address] MCV (RBC) [Entitic vol] 93.3 fL Normal 77.0-99.0 [facility] Comment on above: Performed By: #### L [id number] ####Software Designer: LESLEE HERNANDEZ ([id number])[facility]A [facility]ITALN (SBHLAB)[address] Monocytes (Bld) [#/Vol] 0.5 10*3/uL Normal 0.0-0.9 [facility] Comment on above: Performed By: #### L [id number] ####Software Designer: LESLEE TURKTYRONE ([id number])[facility] [place] (SBHLAB)[address] Monocytes/100 WBC (Bld) 10.1 % Normal 5.0-13.0 [facility] Comment on above: Performed By: #### L [id number] ####Software Designer: LESLEE TURKTYRONE ([id number])[facility]A [place] (SBHLAB)[address] NEUTROPHILS ABSOLUTE 2.2 10*3/uL Normal 1.8-7.5 [facility] Comment on above: Performed By: #### L [id number] ####Software Designer: LESLEE HERNANDEZ ([id number])[facility]A [place] (SBHLAB)[address] Neutrophils/100 WBC (Bld) 44.5 % Normal 38.0-82.0 [facility] Comment on above: Performed By: #### L [id number] ####Software Designer: LESLEE TURKTYRONE ([id number])[facility]A [place] (SBHLAB)[address] NRBC 0.0 /100 WBCs Normal 0.0-2.0 [facility] Comment on above: Performed By: #### L [id number] ####Software Designer: LESLEE TURKTYRONE ([id number])[facility]A [place] (SBHLAB)[address] [place] [address] [place] Platelet mean volume (Bld) [Entitic vol] 9.6 fL Normal 9.0-12.7 [facility] Comment on above: Performed By: #### L [id number] ####Software Designer: LESLEE HERNANDEZ ([id number])[facility]A [place] (SBHLAB)[address] Platelets (Bld) [#/Vol] 280 10*3/uL Normal 140-440 [facility] Comment on above: Performed By: #### L [id number] ####Software Designer: LESLEE HERNANDEZ ([id number])[facility] CENTERKeyon [place] (SBHLAB)[address] RBC (Bld) [#/Vol] 4.32 10*6/uL Low 4.40-5.90 [facility] Comment on above: Performed By: #### L [id number] ####Software Designer: LESLEE HERNANDEZ ([id number])[facility]ENTERA [facility] HOSPITALMarguerite (SBHLAB)[address] WBC (Bld) [#/Vol] 4.9 10*3/uL Normal 3.6-10.7 [facility] Comment on above: Performed By: #### L [id number] ####Software Designer: LESLEE HERNANDEZ ([id number])[facility] CENTERKeyon [facility] HOSPITALMarguerite (SBHLAB)[address] [place] [address] Consulton 03-01-2024 Consult Normal [facility] HEMOGLOBIN A1Con 03-01-2024 Glucose [Mass/Vol] 97 mg/dL Normal [facility] Comment on above: Performed By: #### L AB90 ####Software Designer: LESLEE HERNANDEZ ([id number])[facility] CENTERKeyon [facility]AMPUSALLISON (SBHLAB)[address] [place] [address] HbA1c (Bld) [Mass fraction] 5.0 % Normal <5.7 [facility] Comment on above: Result Comment: Norm al less than 5.7%Prediabetes 5.7% to 6.4%Diabetes 6.5% or higher--HgbA1C levels may not be accurate in patients who have renal disease, received recent blood transfusions, are anemic, or who have dyshemoglobinemia. Performed By: #### L AB90 ####Software Designer: LESLEE HERNANDEZ ([id number])[facility]ENTERA [place] (SBHLAB)[address] [place], [place] [id number] [place] IDNon 03-01-2024 IDN Normal [facility] IDN The patient is Moderately Stable - Low risk of patient condition declining or worsening The patient's goals for the shift include rest The clinical goals for the shift include pt education Normal [facility] Laboratory - Chemistry and C hemistry - challengeon 03-01-2024 Average glucose Estimated from glycated hemoglobin (Bld) [Mass/Vol] 97 mg/dL [facility] Laboratory - Hematology and Cell countson 03-01-2024 HbA1c (Bld) [Mass fraction] 5.0 % NINF - 5.7 % [facility] Comment on above: Normal less than 5.7 % Prediabetes 5.7% to 6.4% Diabetes 6.5% or higher --HgbA1C levels may not be accurate in patients who have renal disease, received recent blood transfusions, are anemic, or who have dyshemoglobinemia. No Panel Informationon 03-01 [facility] Nursing Noteon 03-01-2024 Nursing Note Discharge instructions given to patient and questions were addressed. Encouraged patient to follow up with cardiology and new PCP scheduled with Family Medicine. Normal [facility] Progress Noteon 03-01-2024 Progress Note Normal [facility] Progress Note Normal [facility] BASIC METABOLIC PANELon Anion gap [Moles/Vol] 8 mmol/L Normal 3-13 [facility] Comment on above: Performed By: #### L AB15, LAB18, [id number] ####Software Designer: LESLEE HERNANDEZ ([id number])[facility] HOSPITALALL[facility] (SBHLAB)[address] [place] [address] [place] Calcium [Mass/Vol] 8.8 mg/dL Normal 8.4-10.4 [facility] Comment on above: Performed By: #### L AB15, LAB18, [id number] ####Software Designer: LESLEE HERNANDEZ ([id number])[facility] (SBHLAB)[address] [place] [address] [place] Chloride [Moles/Vol] 105 mmol/L Normal 98-107 [facility] Comment on above: Performed By: #### L AB15, LAB18, [id number] ####Software Designer: LESLEE HERNANDEZ ([id number])[facility] (SBHLAB)[address] CO2 [Moles/Vol] 24 mmol/L Normal 22-30 [facility] Comment on above: Performed By: #### Pedro AB15, LAB18, [id number] ####Software Designer: LESLEE HERNANDEZ ([id number])[facility] ([facility]AB)[address] Creatinine [Mass/Vol] 1.58 mg/dL High 0.66-1.25 [facility] Comment on above: Performed By: #### Pedro AB15, LAB18, [id number] ####Software Designer: LESLEE HERNANDEZ ([id number])[facility] ([facility]AB)[address] GLOMERULAR FILTRATION RATE ML/MIN/1.73 SQ M.PREDICTED 54.3 mL/min/1.73m*2 Low >60.0 [facility] Comment on above: Result Comment: Calc ulation based on the Chronic Kidney Disease Epidemiology Collaboration (CKD-EPI) equation refit without adjustment for race Performed By: #### Pedro AB15, LAB18, [id number] ####Software Designer: LESLEE HERNANDEZ ([id number])[facility] (HLAB)[address] Glucose [Mass/Vol] 117 mg/dL High 70-100 [facility] Comment on above: Performed By: #### L AB15, LAB18, [id number] ####Software Designer: LESLEE HERNANDEZ ([id number])[facility] ([facility]AB)[address] Potassium [Moles/Vol] 3.8 mmol/L Normal 3.5-5.1 [facility] Comment on above: Performed By: #### L AB15, LAB18, [id number] ####Software Designer: LESLEE MARY ([id number])[facility] (SBHLAB)[address] Sodium [Moles/Vol] 136 mmol/L Normal 135-145 [facility] Comment on above: Performed By: #### L AB15, LAB18, [id number] ####Software Designer: LESLEE MCNEILLRAMON ([id number])[facility] (SBHLAB)[address] Urea nitrogen [Mass/Vol] 19 mg/dL Normal 9-20 [facility] Comment on above: Performed By: #### L AB15, LAB18, [id number] ####Software Designer: LESLEE MCNEILLRAMON ([id number])[facility] (SBHLAB)[address] [place] [address] Basic metabolic 1998 panelon 02-29-2024 Anion gap [Moles/Vol] 10 mmol/L 3 - 13 mmol/L [facility] [facility] Calcium [Mass/Vol] 9.1 mg/dL 8.4 - 10. 4 mg/dL [facility] Chloride [Moles/Vol] 104 mmol/L 98 - 10 7 mmol/L [facility] CO2 [Moles/Vol] 25 mmol/L 22 - 30 mmol/L [facility] Creatinine [Mass/Vol] 1.66 mg/dL High 0.66 - 1.25 mg/dL [facility] GFR/1.73 sq M.predicted (S/P/Bld) [Vol rate/Area] 51.2 mL/min Low - PINF [facility] Comment on above: Calculation based on the Chronic Kidney Disease Epidemiology Collaboration (CKD-EPI) equation refit without adjustment for race Glucose [Mass/Vol] 118 mg/dL High 70 - 100 mg/dL [facility] Interpretation and review of laboratory results Abnormal [facility] Potassium [Moles/Vol] 4.2 mmol/L 3.5 - 5.1 mmol/L [facility] Sodium [Moles/Vol] 139 mmol/L 135 - 145 mmol/L [facility] Urea nitrogen [Mass/Vol] 19 mg/dL 9 - 20 mg/dL [facility] Anion gap [Moles/Vol] 8 mmol/L 3 - 13 mmol/L [facility] Calcium [Mass/Vol] 8.8 mg/dL 8.4 - 10. 4 mg/dL [facility] Chloride [Moles/Vol] 105 mmol/L 98 - 10 7 mmol/L [facility] CO2 [Moles/Vol] 24 mmol/L 22 - 30 mmol/L [facility] Creatinine [Mass/Vol] 1.58 mg/dL High 0.66 - 1.25 mg/dL [facility] GFR/1.73 sq M.predicted (S/P/Bld) [Vol rate/Area] 54.3 mL/min Low - PINF [facility] Comment on above: Calculation based on the Chronic Kidney Disease Epidemiology Collaboration (CKD-EPI) equation refit without adjustment for race Glucose [Mass/Vol] 117 mg/dL High 70 - 100 mg/dL [facility] Interpretation and review of laboratory results Abnormal [facility] Potassium [Moles/Vol] 3.8 mmol/L 3.5 - 5.1 mmol/L [facility] Sodium [Moles/Vol] 136 mmol/L 135 - 145 mmol/L [facility] Urea nitrogen [Mass/Vol] 19 mg/dL 9 - 20 mg/dL [facility] CARECOORDon 02-29-2024 CARECOORD Normal [facility] Consulton 02-29-2024 Consult Normal [facility] IDNon 02-29-2024 IDN The patient is Moderately Stable - Low risk of patient condition declining or worsening The patient's goals for the shift include see cardiology The clinical goals for the shift include hemodynamically stable Normal [facility] LIPID PANELon 02-29-2024 Cholesterol [Mass/Vol] 172 mg/dL Normal <200 [facility] Comment on above: Performed By: #### L AB15, LAB18, [id number] ####Software Designer: LESLEE HERNANDEZ ([id number])[facility] ([address] Cholesterol in HDL [Mass/Vol] 28 mg/dL Low 40-60 [facility] Comment on above: Performed By: #### L AB15, LAB18, [id number] ####Software Designer: LESLEE HERNANDEZ ([id number])[facility]ENTER[facility] MCFADDEN (SBHLAB)[address] Cholesterol.total/Chol esterol in HDL [Mass ratio] 6 {ratio} Normal [facility] Comment on above: Result Comment: Ref Range:< 3 Low Risk for CHD3-6 Mod Risk for CHD> 6 High Risk for CHD Performed By: #### L AB15, LAB18, [id number] ####Software Designer: LESLEE HERNANDEZ ([id number])[facility]ENTER[facility] (SBHLAB)[address] LOW DENSITY LIPOPROTEIN 126 mg/dL High 0-<100 [facility] Comment on above: Performed By: #### L AB15, LAB18, [id number] ####Software Designer: LESLEE TURKTYRONE ([id number])[facility] (SBHLAB)[address] Triglyceride [Mass/Vol] 88 mg/dL Normal <150 [facility] Comment on above: Performed By: #### L AB15, LAB18, [id number] ####Software Designer: LESLEE TURKTYRONE ([id number])[facility] ([facility])[address] Laboratory - Chemistry and C hemistry - challengeon 02-29-2024 Troponin I.cardiac [Mass/Vol] 0.026 ng/mL NINF - 0.034 ng/mL [facility] [employer] Lipid 1996 panelon 4 Cholesterol [Mass/Vol] 172 mg/dL NINF - 200 mg/dL [facility] [employer] Cholesterol in HDL [Mass/Vol] 28 mg/dL Low 40 - 60 mg/dL [facility] [employer] Cholesterol in LDL [Mass/Vol] 126 mg/dL High 0 - <100 [facility] [employer] Cholesterol.total/Chol esterol in HDL [Mass ratio] 6 {ratio} [facility] [employer] Comment on above: Ref Range: < 3 Low Risk for CHD 3-6 Mod Risk for CHD > 6 High Risk for CHD Interpretation and review of laboratory results Abnormal [facility] [employer] Triglyceride [Mass/Vol] 88 mg/dL NINF - 150 mg/dL [facility] Progress Noteon 02-29-2024 Progress Note Normal [facility] TROPONIN Ion 02-29-2024 Troponin I.cardiac [Mass/Vol] 0.026 ng/mL Normal <0.034 [facility] Comment on above: Result Comment: ALEJANDRO Aleman COMMENTS:Patients with high levels of Biotin oral intake (ie >5 mg/day) may have falsely decreased Troponin levels. Performed By: #### L AB15, LAB18, [id number] ####Software Designer: LESLEE HERNANDEZ ([id number])[facility] (SBHLAB)[address] [place] [address] Troponin I.cardiac [Mass/Vol ]on 02-29-2024 Interpretation and review of laboratory results Normal [facility] Patients with high levels of Biotin oral intake (ie >5 mg/day) may have falsely decreased Troponin levels. [facility] US Heart Transthoracicon Ao Root Index 1.52 cm/m2 [facility] Aortic Root 3.3 cm [facility] Aortic Sinus Valsalva 3.2 cm [facility] Aortic Sinus Valsalva Index 1.47 cm/m2 [facility] Ascending Aorta 3.3 cm [facility] Ascending Aorta Index 1.52 cm/m2 [facility] AV Area by Peak Velocity 3.3 cm2 [facility] AV Area by VTI 2.9 cm2 [facility] th AV Mean Gradient [address] [facility] alth AV Mean Velocity 0.9 m/s [facility] alth AV Peak Gradient [address] [facility] alth AV Peak Velocity 1.2 m/s [facility] alth AV Velocity Ratio 0.83 [facility] ealth AV VTI 19.1 cm [facility] EMILY/BSA Peak Velocity 1.5 cm2/m2 [facility] EMILY/BSA VTI 1.3 cm2/m2 [facility] E/E' Lateral 9.29 [facility] E/E' Ratio (Averaged) 9.29 [facility] E/E' Septal 9.29 [facility] EF BP 30 % Abnormal 55 - 100 % [facility] Est. RA Pressure [address] [facility] alth Fractional Shortening 2D 15 % 28 - 44 % [facility] Global Longitudinal Strain -7.1 % [facility] Interpretation and review of laboratory results Abnormal [facility] IVC Diameter 1.6 cm [facility] IVSd 1.2 cm Abnormal 0.6 - 1.0 cm [facility] LA Diameter 4.4 cm [facility] LA Size Index 2.03 cm/m2 [facility] h LA Volume 2C 84 mL Abnormal 18 - 58 mL [facility] LA Volume 4C 78 mL Abnormal 18 - 58 mL [facility] LA Volume A/L 91 mL [facility] LA Volume BP 84 mL Abnormal 18 - 58 mL [facility] LA Volume Index 2C 39 mL/m2 Abnormal 16 - 34 mL/m2 [facility] LA Volume Index 4C 36 mL/m2 Abnormal 16 - 34 mL/m2 [facility] LA Volume Index A/L 42 mL/m2 16 - 34 mL/m2 [facility] LA Volume Index BP 39 ml/m2 Abnormal 16 - 34 ml/m2 [facility] LA/AO Root Ratio 1.33 [facility] LV E' Lateral Velocity 7 cm/s [facility] LV E' Septal Velocity 7 cm/s [facility] LV EDV A2C 236 mL [facility] LV EDV A4C 278 mL [facility] LV EDV BP 259 mL Abnormal 67 - 155 mL [facility] LV EDV Index A2C 109 mL/m2 [facility] alth LV EDV Index A4C 128 mL/m2 [facility] LV EDV Index BP 119 mL/m2 [facility] LV Ejection Fraction A2C 25 % [facility] LV Ejection Fraction A4C 35 % [facility] LV ESV A2C 178 mL [facility] LV ESV A4C 181 mL [facility] LV ESV BP 182 mL Abnormal 22 - 58 mL [facility] LV ESV Index A2C 82 mL/m2 [facility] alth LV ESV Index A4C 83 mL/m2 [facility] alth LV ESV Index BP 84 mL/m2 [facility] LV Mass 2D 350.2 g Abnormal 88 - 224 g [facility] LV Mass 2D Index 161.4 g/m2 Abnormal 49 - 115 g/m2 [facility] LV RWT Ratio 0.42 [facility] LVIDd 6.2 cm Abnormal 4.2 - 5.9 cm [facility] LVIDd Index 2.86 cm/m2 [facility] LVIDs 5.3 cm [facility] LVIDs Index 2.44 cm/m2 [facility] LVOT Area 3.8 cm2 [facility] LVOT Cardiac Output 5.2 liter/minute [facility] LVOT Diameter 2.2 [facility] Mean Gradient 2 mmHg [facility] LVOT Peak Gradient 4 mmHg [facility] LVOT Peak Velocity 1.0 m/s [facility] LVOT Stroke Volume Index 25.4 mL/m2 [facility] LVOT SV 55.1 ml [facility] LVOT VTI 14.5 cm [facility] LVOT:AV VTI Index 0.76 [facility] ealth LVPWd 1.3 cm Abnormal 0.6 - 1.0 cm [facility] MR VTI 149.6 cm [facility] MV A Velocity 0.68 m/s [facility] MV E Velocity 0.65 m/s [facility] MV E Wave Deceleration Time 225.7 ms [facility] MV E/A 0.96 [facility] MV Nyquist Velocity 36 cm/s [facility] MV Regurg Velocity PISA 5.2 m/s [facility] RA Area 4C 38.2 mL [facility] RA Area 4C 37.1 mL [facility] RV Basal Dimension 3.0 cm [facility] RV Free Wall Peak S' 16 cm/s [facility] RV Mid Dimension 1.[address] [facility] alth RVSP 23 mmHg [facility] Sinotubular Junction 2.8 cm [facility] TAPSE 2.5 cm 1.7 cm [facility] TR Max Velocity 2.25 m/s [facility] lth TR Peak Gradient [address] [facility] alth Left Ventricle: Left ventricle is [...] no prior study available for comparison CV CPACS [facility] BASIC METABOLIC PANELon 08-3 Anion gap [Moles/Vol] 10 mmol/L Normal 3-13 [facility] Comment on above: Performed By: #### L [id number], LAB15, [id number] ####Software Designer: NICOLE BOWERS ([id number])[facility] (SWRLAB)[address] [place] [address] Calcium [Mass/Vol] 9.1 mg/dL Normal 8.4-10.4 [facility] Comment on above: Performed By: #### Pedro [id number], LAB15, [id number] ####Software Designer: NICOLE BOWERS ([id number])[facility]ENTER[facility] FLOREZTMAN (SWRLAB)[address] [place] [address] [place] Chloride [Moles/Vol] 104 mmol/L Normal 98-107 [facility] Comment on above: Performed By: #### Pedro NG, LAB15, [id number] ####Software Designer: NICOLE BOWERS ([id number])[facility]ENTER[facility] YEH RITTMAN (SWRLAB)[address] [place] [address] [place] CO2 [Moles/Vol] 25 mmol/L Normal 22-30 [facility] Comment on above: Performed By: #### Pedro NG, LAB15, [id number] ####Software Designer: NICOLE BOWERS ([id number])[facility] FLOREZTMAN (SWRLAB)[address] [place] [address] [place] Creatinine [Mass/Vol] 1.66 mg/dL High 0.66-1.25 [facility] Comment on above: Performed By: #### Pedro NG, LAB15, [id number] ####Software Designer: NICOLE BOWERS ([id number])[facility]Key[facility] FLOREZTMAN (SWRLAB)[address] [place] [address] [place] GLOMERULAR FILTRATION RATE ML/MIN/1.73 SQ M.PREDICTED 51.2 mL/min/1.73m*2 Low >60.0 [facility] Comment on above: Result Comment: Calc ulation based on the Chronic Kidney Disease Epidemiology Collaboration (CKD-EPI) equation refit without adjustment for race Performed By: #### Pedro NG, LAB15, [id number] ####Software Designer: NICOLE BOWERS ([id number])[facility]ENTER[facility] FL[facility] (SWRLAB)[address] [place] [address] [place] Glucose [Mass/Vol] 118 mg/dL High 70-100 [facility] Comment on above: Performed By: #### Pedro NG, LAB15, [id number] ####Software Designer: NICOLE BOWERS ([id number])[facility]ENTER[facility] YE[facility]IT[facility] (SWRLAB)[address] Potassium [Moles/Vol] 4.2 mmol/L Normal 3.5-5.1 [facility] Comment on above: Performed By: #### L [id number], LAB15, [id number] ####Software Designer: NICOLE BOWERS ([id number])[facility]ENTER[facility] YEH RITTMAN (SWRLAB)[address] Sodium [Moles/Vol] 139 mmol/L Normal 135-145 [facility] Comment on above: Performed By: #### Pedro [id number], LAB15, [id number] ####Software Designer: NICOLE BOWERS ([id number])[facility]ENTERKey[facility] FLOREZTMAN (SWRLAB)[address] [place] [address] Urea nitrogen [Mass/Vol] 19 mg/dL Normal 9-20 [facility] Comment on above: Performed By: #### Pedro [id number], LAB15, [id number] ####Software Designer: NICOLE BOWERS ([id number])[facility]ENTERKey[facility] FL[facility] (SWRLAB)[address] [place] [address] CBC W Auto Differential pane l (Bld)on 02-28-2024 Basophils (Bld) [#/Vol] 0.0 10*3/uL 0.0 - 0.2 10*3/uL [facility] Basophils/100 WBC (Bld) 0.3 % 0.0 - 2.0 % [facility] Eosinophils (Bld) [#/Vol] 0.1 10*3/uL 0.0 - 0.5 10*3/uL [facility] Eosinophils/100 WBC (Bld) 2.0 % 0.0 - 6.0 % [facility] Erythrocyte distribution width (RBC) [Ratio] 11.7 % 11.5 - 15.0 % [facility] Hematocrit (Bld) [Volume fraction] 40.0 % 40.0 - 52.0 % [facility] Hemoglobin (Bld) [Mass/Vol] 13.5 g/dL 13.0 - 18.0 g/dL [facility] Immature granulocytes (Bld) [#/Vol] 0.0 10*3/uL NINF - 0.1 10*3/uL [facility] Immature granulocytes/100 WBC (Bld) 0.2 % 0.0 - 2.0 % [facility] Interpretation and review of laboratory results Abnormal [facility] Lymphocytes (Bld) [#/Vol] 1.7 10*3/uL 1.0 - 4.3 10*3/uL [facility] Lymphocytes/100 WBC (Bld) 26.3 % 15.0 - 45.0 % [facility] MCH (RBC) [Entitic mass] 31.1 pg 26.0 - 34.0 pg [facility] MCHC (RBC) [Mass/Vol] 33.8 % 30.5 - 36.0 % [facility] MCV (RBC) [Entitic vol] 92.2 fL 77.0 - 99.0 fL [facility] Monocytes (Bld) [#/Vol] 0.4 10*3/uL 0.0 - 0.9 10*3/uL [facility] Monocytes/100 WBC (Bld) 6.2 % 5.0 - 13.0 % [facility] Neutrophils (Bld) [#/Vol] 4.3 10*3/uL 1.8 - 7.5 10*3/uL [facility] Neutrophils/100 WBC (Bld) 65.0 % 38.0 - 82.0 % [facility] Nucleated RBC/100 WBC (Bld) [Ratio] 0.0 % [facility] Platelet mean volume (Bld) [Entitic vol] 9.3 fL 9.0 - 12.7 fL [facility] Comment on above: MPV is a calculated measurement using platelet volume ratio Platelets (Bld) [#/Vol] 279 10*3/uL 140 - 440 10*3/uL [facility] RBC (Bld) [#/Vol] 4.34 10*6/uL Low 4.40 - 5.9 0 10*6/uL [facility] WBC (Bld) [#/Vol] 6.6 10*3/uL 3.6 - 10.7 10*3/uL [facility] CBC WITH AUTO DIFFERENTIALon 02-28-2024 Basophils (Bld) [#/Vol] 0.0 10*3/uL Normal 0.0-0.2 [facility] Comment on above: Performed By: #### L [id number] ####Software Designer: NICOLE BOWERS ([id number])[facility] (SWRLAB)[address] [place] [address] [place] Basophils/100 WBC (Bld) 0.3 % Normal 0.0-2.0 [facility] Comment on above: Performed By: #### L [id number] ####Software Designer: NICOLE BOWERS ([id number])[facility]ENTERA KAMALJIT RITTMAN (SWRLAB)[address] [place] [address] [place] Eosinophils (Bld) [#/Vol] 0.1 10*3/uL Normal 0.0-0.5 [facility] Comment on above: Performed By: #### L [id number] ####Software Designer: NICOLE BOWERS ([id number])[facility]ENTERA KAMALJIT RITTM[facility] (SWRLAB)[address] [place] [address] [place] Eosinophils/100 WBC (Bld) 2.0 % Normal 0.0-6.0 [facility] Comment on above: Performed By: #### L [id number] ####Software Designer: NICOLE BOWERS ([id number])[facility] (SWRLAB)[address] [place] [address] Erythrocyte distribution width (RBC) [Ratio] 11.7 % Normal 11.5-15.0 [facility] Comment on above: Performed By: #### L [id number] ####Software Designer: NICOLE BOWERS ([id number])[facility] (SWRLAB)[address] [place] [address] Hematocrit (Bld) [Volume fraction] 40.0 % Normal 40.0-52.0 [facility] Comment on above: Performed By: #### L [id number] ####Software Designer: NICOLE BOWERS ([id number])[facility] (SWRLAB)[address] [place] [address] Hemoglobin (Bld) [Mass/Vol] 13.5 g/dL Normal 13.0-18.0 [facility] Comment on above: Performed By: #### L [id number] ####Software Designer: NICOLE BOWERS ([id number])[facility]ENTERKey[facility] YE[facility] (SWRLAB)[address] [place] [address] IMMATURE GRANS % 0.2 % Normal 0.0-2.0 [facility] Comment on above: Performed By: #### L [id number] ####Software Designer: NICOLE BOWERS ([id number])[facility]ENTER[facility] (SWRLAB)[address] [place] [address] IMMATURE GRANS ABSOLUTE 0.0 10*3/uL Normal <0.1 [facility] Comment on above: Performed By: #### L [id number] ####Software Designer: NICOLE BOWERS ([id number])[facility]ENTERKey[facility] (SWRLAB)[address] [place] [address] Lymphocytes (Bld) [#/Vol] 1.7 10*3/uL Normal 1.0-4.3 [facility] Comment on above: Performed By: #### L [id number] ####Software Designer: NICOLE BOWERS ([id number])[facility]ENTER[facility] (SWRLAB)[address] [place] [address] Lymphocytes/100 WBC (Bld) 26.3 % Normal 15.0-45.0 [facility] Comment on above: Performed By: #### L [id number] ####Software Designer: NICOLE BOWERS ([id number])[facility] (SWRLAB)[address] [place] [address] MCH (RBC) [Entitic mass] 31.1 pg Normal 26.0-34.0 [facility] Comment on above: Performed By: #### L [id number] ####Software Designer: NICOLE BOWERS ([id number])[facility] (SWRLAB)[address] MCHC 33.8 % Normal 30.5-36.0 [facility] Comment on above: Performed By: #### L [id number] ####Software Designer: NICOLE BOWERS ([id number])[facility] (SWRLAB)[address] [place] [address] MCV (RBC) [Entitic vol] 92.2 fL Normal 77.0-99.0 [facility] Comment on above: Performed By: #### L [id number] ####Software Designer: NICOLE BOWERS ([id number])[facility] (SWRLAB)[address] [place] [address] Monocytes (Bld) [#/Vol] 0.4 10*3/uL Normal 0.0-0.9 [facility] Comment on above: Performed By: #### L [id number] ####Software Designer: NICOLE BOWERS ([id number])[facility] (SWRLAB)[address] [place] [address] [place] Monocytes/100 WBC (Bld) 6.2 % Normal 5.0-13.0 [facility] Comment on above: Performed By: #### L [id number] ####Software Designer: NICOLE BOWERS ([id number])[facility] (SWRLAB)[address] [place] [address] [place] NEUTROPHILS ABSOLUTE 4.3 10*3/uL Normal 1.8-7.5 [facility] Comment on above: Performed By: #### L [id number] ####Software Designer: NICOLE BOWERS ([id number])[facility] (SWRLAB)[address] [place] [address] Neutrophils/100 WBC (Bld) 65.0 % Normal 38.0-82.0 [facility] Comment on above: Performed By: #### L [id number] ####Software Designer: NICOLE BOWERS ([id number])[facility] (SWRLAB)[address] NRBC 0.0 /100 WBCs Normal 0.0-2.0 [facility] Comment on above: Performed By: #### L [id number] ####Software Designer: NICOLE BOWERS ([id number])[facility] (SWRLAB)[address] [place] [address] Platelet mean volume (Bld) [Entitic vol] 9.3 fL Normal 9.0-12.7 [facility] Comment on above: Result Comment: MPV is a calculated measurement using platelet volume ratio Performed By: #### L [id number] ####Software Designer: NICOLE BOWERS ([id number])[facility]ENTER[facility] (SWRLAB)[address] [place] [address] [place] Platelets (Bld) [#/Vol] 279 10*3/uL Normal 140-440 [facility] Comment on above: Performed By: #### L [id number] ####Software Designer: NICOLE BOWERS ([id number])[facility] (SWRLAB)[address] [place] [address] RBC (Bld) [#/Vol] 4.34 10*6/uL Low 4.40-5.90 [facility] Comment on above: Performed By: #### L [id number] ####Software Designer: NICOLE BOWERS ([id number])[facility] MEDICAL CENTERKeyon YEH RITTMAN (SWRLAB)[address] [place] [address] WBC (Bld) [#/Vol] 6.6 10*3/uL Normal 3.6-10.7 [facility] Comment on above: Performed By: #### L [id number] ####Software Designer: NICOLE BOWERS ([id number])[facility]ENTERKeyon YEH RITTMAN (SWRLAB)[address] COMPREHENSIVE METABOLIC PANE Ming 02-28-2024 Albumin [Mass/Vol] 4.4 g/dL Normal 3.5-5.0 [facility] Comment on above: Performed By: #### Pedro HONEYCUTT, [id number], [id number] ####Software Designer: NICOLE BOWERS ([id number])[facility]ENTERKeyon YEH RITTMAN (SWRLAB)[address] ALP [Catalytic activity/Vol] 83 U/L Normal 38-126 [facility] Comment on above: Performed By: #### Pedro HONEYCUTT, [id number], [id number] ####Software Designer: NICOLE BOWERS ([id number])[facility]ENTERKeyon YE[facility] RITTM[facility] (SWRLAB)[address] ALT [Catalytic activity/Vol] 19 U/L Normal 0-49 [facility] Comment on above: Performed By: #### Pedro HONEYCUTT, [id number], [id number] ####Software Designer: NICOLE BOWERS ([id number])[facility]ENTERKeyon YE[facility] RITTM[facility] (SWRLAB)[address] Anion gap [Moles/Vol] 8 mmol/L Normal 3-13 [facility] Comment on above: Performed By: #### Pedro JESSICA17, [id number], [id number] ####Software Designer: NICOLE BOWERS ([id number])[facility]ENTERKeyon YE[facility] RITTM[facility] (SWRLAB)[address] [place] [address] [place] AST [Catalytic activity/Vol] 39 U/L Normal 15-46 [facility] Comment on above: Performed By: #### Pedro JESSICA17, [id number], [id number] ####Software Designer: NICOLE BOWERS ([id number])[facility]ENTERKey[facility] YE[facility] RITTMAN (SWRLAB)[address] Bilirubin [Mass/Vol] 1.0 mg/dL Normal 0.2-1.3 [facility] Comment on above: Performed By: #### Pedro ABCharline, [id number], [id number] ####Software Designer: NICOLE BOWERS ([id number])[facility]ENTERKeyon YEH RITTM[place] (SWRLAB)[address] [place] [address] [place] Calcium [Mass/Vol] 8.8 mg/dL Normal 8.4-10.4 [facility] Comment on above: Performed By: #### Pedro AB17, [id number], [id number] ####Software Designer: NICOLE BOWERS ([id number])[facility]ENTERKeyon YE[facility] RITTM[place] (SWRLAB)[address] [place] [address] [place] Chloride [Moles/Vol] 105 mmol/L Normal 98-107 [facility] Comment on above: Performed By: #### Pedro HONEYCUTT, [id number], [id number] ####Software Designer: NICOLE BOWERS ([id number])[facility]ENTERKeyon YEH RITTMAN (SWRLAB)[address] [place] [address] [place] CO2 [Moles/Vol] 25 mmol/L Normal 22-30 [facility] Comment on above: Performed By: #### Pedro HONEYCUTT, [id number], [id number] ####Software Designer: NICOLE BOWERS ([id number])[facility]ENTERKeyon YE[facility] RITTMAN (SWRLAB)[address] [place] [address] [place] Creatinine [Mass/Vol] 1.50 mg/dL High 0.66-1.25 [facility] Comment on above: Performed By: #### Perdo HONEYCUTT, [id number], [id number] ####Software Designer: NICOLE BOWERS ([id number])[facility] CENTERKeyno YEH RITTMAN (SWRLAB)[address] [place] [address] [place] GLOMERULAR FILTRATION RATE ML/MIN/1.73 SQ M.PREDICTED 57.8 mL/min/1.73m*2 Low >60.0 [facility] Comment on above: Result Comment: Calc ulation based on the Chronic Kidney Disease Epidemiology Collaboration (CKD-EPI) equation refit without adjustment for race Performed By: #### Pedro AB17, [id number], [id number] ####Software Designer: NICOLE BOWERS ([id number])[facility]ENTERKeyon YEH RITTMAN (SWRLAB)[address] [place] [address] [place] Glucose [Mass/Vol] 111 mg/dL High 70-100 [facility] Comment on above: Performed By: #### L AB17, [id number], [id number] ####Software Designer: NICOLE BOWERS ([id number])[facility]ENTERKeyon YEH RITTMAN (SWRLAB)[address] [place] [address] [place] Potassium [Moles/Vol] 4.3 mmol/L Normal 3.5-5.1 [facility] Comment on above: Performed By: #### Pedro JESSICA17, [id number], [id number] ####Software Designer: NICOLE BOWERS ([id number])[facility]ENTERKeyon YEH RITTMAN (SWRLAB)[address] [place] [address] [place] Protein [Mass/Vol] 7.8 g/dL Normal 6.3-8.2 [facility] Comment on above: Performed By: #### Pedro JESSICA17, [id number], [id number] ####Software Designer: NICOLE BOWERS ([id number])[facility]ENTERKeyon YHE RITTMAN (SWRLAB)[address] [place] [address] [place] Sodium [Moles/Vol] 138 mmol/L Normal 135-145 [facility] Comment on above: Performed By: #### Pedro JESSICA17, [id number], [id number] ####Software Designer: NICOLE BOWERS ([id number])[facility]ENTERKeyon YEH RITTMAN (SWRLAB)[address] [place] [address] [place] Urea nitrogen [Mass/Vol] 20 mg/dL Normal 9-20 [facility] Comment on above: Performed By: #### L AB17, [id number], [id number] ####Software Designer: NICOLE BOWERS ([id number])[facility]ENTERKeyon YEH RITTMAN (SWRLAB)[address] [place] [address] [place] COVID-19, Flu A/B, and RSV C omboon 02-28-2024 Interpretation and review of laboratory results Normal [facility] CT CHEST ANGIOGRAM W AND/OR WO IV CONTRASTon 02-28-2024 CT CHEST ANGIOGRAM W AND/OR WO IV CONTRAST Normal [facility] CTA Chest vessels WO and W c ontrast Blossom 02-28-2024 1. Cardiomegaly. Pulmonary vascular congestion with infiltrates. Bilateral small pleural effusions, right greater than left. 2. Peribronchial wall thickening concerning for bronchiolitis. 3. No pulmonary artery embolus. 4. Small hiatal hernia. Report Dictated on Electronically Signed By: Kaitlin Goldsmith MD Electronically Signed Date/Time: 02/28/2024 7:57 PM T [facility] Patient Name: CARLO MEDINA : 1980 [facility]#: [id number] Exam Date/Time: 02/28/2024 19:42 Procedure: CT CHEST [...] the upper abdomen is within normal limits. [facility] Kaitlin Goldsmith MD - 02/28/2024 Patient Name: CARLO MEDINA : 1980 [facility]#: [id number] Exam Date/Time: 02/28/2024 19:42 Procedure: CT CHEST [...] Electronically Signed Date/Time: 02/28/2024 7:57 PM EDT [facility] Radiology Study observation (narrative) [facility] Comprehensive metabolic 1998 panelon 02-28-2024 Albumin [Mass/Vol] 4.4 g/dL 3.5 - 5.0 g/dL [facility] ALP [Catalytic activity/Vol] 83 U/L 38 - 126 U/L [facility] ALT [Catalytic activity/Vol] 19 U/L 0 - 49 U/L [facility] Anion gap [Moles/Vol] 8 mmol/L 3 - 13 mmol/L [facility] AST [Catalytic activity/Vol] 39 U/L 15 - 46 U/L [facility] Bilirubin [Mass/Vol] 1.0 mg/dL 0.2 - 1 .3 mg/dL [facility] Calcium [Mass/Vol] 8.8 mg/dL 8.4 - 10. 4 mg/dL [facility] Chloride [Moles/Vol] 105 mmol/L 98 - 10 7 mmol/L [facility] CO2 [Moles/Vol] 25 mmol/L 22 - 30 mmol/L [facility] Creatinine [Mass/Vol] 1.50 mg/dL High 0.66 - 1.25 mg/dL [facility] GFR/1.73 sq M.predicted (S/P/Bld) [Vol rate/Area] 57.8 mL/min Low - PINF [facility] Comment on above: Calculation based on the Chronic Kidney Disease Epidemiology Collaboration (CKD-EPI) equation refit without adjustment for race Glucose [Mass/Vol] 111 mg/dL High 70 - 100 mg/dL [facility] Interpretation and review of laboratory results Abnormal [facility] Potassium [Moles/Vol] 4.3 mmol/L 3.5 - 5.1 mmol/L [facility] Protein [Mass/Vol] 7.8 g/dL 6.3 - 8.2 g/dL [facility] Sodium [Moles/Vol] 138 mmol/L 135 - 145 mmol/L [facility] Urea nitrogen [Mass/Vol] 20 mg/dL 9 - 20 mg/dL [facility] D-DIMER,QUANTITATIVEon 02-27 D-DIMER, INNOVANCE 1.45 mg/L High <0.50 [facility] Comment on above: Result Comment: ALEJANDRO Aleman COMMENTS:Innovance D-Dimer values of <0.50 mg/L FEU can be used in combination with a pre-test probability model (e.g. Well's) to exclude pulmonary embolism (PE) disease, as well as an aid in the diagnosis of deep vein thrombosis (DVT). Performed By: #### L [id number] ####Software Designer: NICOLE BOWERS ([id number])[facility] KAMALJITCHRISTINA FLOWERS (SWRLAB)[address] [place] [address] ECG 12-LEADon 02-28-2024 ECG 12-LEAD Normal [facility] ED Nursing Noteon 02-28-2024 ED Nursing Note Normal [facility] ED Nursing Note Report called to [facility] CRISTINE Townsend RN 02/28/24 [id number] Normal [facility] ED Nursing Note Normal [facility] ED Provider Noteon ED Provider Note Normal [facility] Fibrin D-dimer FEU (PPP) [Ma ss/Vol]on 02-28-2024 Interpretation and review of laboratory results Abnormal [facility] Innovance D-Dimer values of <0.50 mg/L FEU can be used in combination with a pre-test probability model (e.g. Well's) to exclude pulmonary embolism (PE) disease, as well as an aid in the diagnosis of deep vein thrombosis (DVT). [facility] - Chemistry and C hemistry - challengeon 02-28-2024 TSH Qn 1.375 m[IU]/L [facility] h Troponin I.cardiac [Mass/Vol] 0.019 ng/mL NINF - 0.034 ng/mL [facility] Troponin I.cardiac [Mass/Vol] 0.019 ng/mL NINF - 0.034 ng/mL [facility] Laboratory - Coagulationon 0 02-28-2024 Fibrin D-dimer FEU (PPP) [Mass/Vol] 1.45 mg/L High NINF - 0.50 mg/L [facility] Laboratory - Microbiology an d Antimicrobial susceptibilityon 02-28-2024 FLUAV RNA DEENA+probe Ql (Resp) Not detected Not Detected [facility] FLUBV RNA DEENA+probe Ql (Resp) Not detected Not Detected [facility] RSV RNA DEENA+probe Ql (Resp) Not detected Not Detected [facility] SARS-CoV-2 (COVID-19) RNA DEENA+probe Ql (Resp) Not detected Not Detected [facility] SARS-CoV-2 (COVID-19) RNA DEENA+probe Ql (Unsp spec) Methodology: real-time, RT-PCR The SARS-CoV-2, Flu A/B, and RSV Combo assay is intended for in vitro diagnostic use under the FDA Emergency Use Authorization (EUA). This test has not been FDA cleared or approved. In compliance with this authorization, please visit www.fda.gov/media/058 676/download or www.fda.gov/media/174 835/download to access the applicable information sheets. [facility] NT PRO BNPon 02-28-2024 Natriuretic peptide B (Bld) [Mass/Vol] 5170 pg/mL High <20-100 [facility] Comment on above: Performed By: #### L AB17, [id number], [id number] ####Software Designer: NICOLE BOWERS ([id number])[facility] (SWRLAB)[address] [place] [address] Natriuretic peptide B [Mass/ Vol]on 02-28-2024 Interpretation and review of laboratory results Abnormal [facility] Natriuretic peptide B (Bld) [Mass/Vol] 5170 pg/mL High <20 - 100 [facility] No Panel Informationon 02-27 [facility] P Cylinder 59 degrees [facility] DE Interval 145 ms [facility] QRS Cylinder -16 degrees [facility] QRSD [facility]val 341 ms [facility] QTC Interval 469 ms [facility] T Wave Cylinder 124 degrees [facility] Vic Loaiza M D - 02/28/2024 IMPRESSION: Sinus tachycardia Probable left atrial enlargement Abnormal R-wave progression, late transition Left ventricular hypertrophy Abnormal T, consider ischemia, lateral leads ST elevation, consider anterior injury No old ekg available for comparison Electronically Signed On 02-28-2024 18:14:12 EDT by Vic Loaiza [facility] SARS-COV-2, FLU A/B, AND RSV COMBOon 02-28-2024 SARS-CoV-2 (COVID-19) RNA DEENA+probe Ql (Unsp spec) Normal [facility] Comment on above: Performed By: #### L [id number] ####Software Designer: NICOLE BOWERS ([id number])[facility]ITALKAMALJIT VIKKITMAN (SWRLAB)[address] [place] [address] THYROID STIMULATING HORMONEo n 02-28-2024 THYROID STIMULATING HORMONE 1.375 uIU/mL Normal 0.465-4.680 [facility] Comment on above: Performed By: #### L AB747, [id number], [id number] ####Software Designer: NICOLE BOWERS ([id number])[facility] [employer]TMAN (SWRLAB)[address] [place] [address] [place] TROPONIN Ion 02-28-2024 Troponin I.cardiac [Mass/Vol] 0.019 ng/mL Normal <0.034 [facility] Comment on above: Result Comment: ALEJANDRO Aleman COMMENTS:Patients with high levels of Biotin oral intake (ie >5 mg/day) may have falsely decreased Troponin levels. Performed By: #### L [id number], [id number], [id number] ####Software Designer: NICOLE BOWERS ([id number])[facility]OSPITALKAMALJITSHORTY FLOREZTMAN (SWRLAB)[address] [place] [address] [place] TROPONIN, WITH SERIAL REFLEX on 02-28-2024 Troponin I.cardiac [Mass/Vol] 0.019 ng/mL Normal <0.034 [facility] Comment on above: Result Comment: ALEJANDRO Aleman COMMENTS:Patients with high levels of Biotin oral intake (ie >5 mg/day) may have falsely decreased Troponin levels. Performed By: #### L AB17, [id number], [id number] ####Software Designer: NICOLE BOWERS ([id number])[facility] KAMALJIT FLOREZTMAN (SWRLAB)[address] [place] [address] [place] TSH Qnon 02-28-2024 Interpretation and review of laboratory results Normal [facility] Troponin I.cardiac [Mass/Vol ]on 02-28-2024 Interpretation and review of laboratory results Normal [facility] Patients with high levels of Biotin oral intake (ie >5 mg/day) may have falsely decreased Troponin levels. [facility] Interpretation and review of laboratory results Normal [facility] Patients with high levels of Biotin oral intake (ie >5 mg/day) may have falsely decreased Troponin levels. [facility] Vital signson 02-28-2024 Heart rate 113 /min bpm [facility] XR Chest Single viewon 02-27 1. Cardiomegaly. 2. Pulmonary vascular congestion. 3. Suspect bilateral perihilar infiltrates. Report Dictated on Electronically Signed By: Kaitlin Goldsmith MD Electronically Signed Date/Time: 02/28/2024 6:47 PM EDT [facility] Patient Name: CARLO MEDINA : 1980 Exam Date/Time: 02/28/2024 18:41 Procedure: XR CHEST [...] endplate degenerative changes of the thoracic spine. [facility] Kaitlin Goldsmith MD - 02/28/2024 Patient Name: CARLO MEDINA : 1980 Exam Date/Time: 02/28/2024 18:41 Procedure: XR CHEST [...] Electronically Signed Date/Time: 02/28/2024 6:47 PM EDT [facility] [employer] Radiology Study observation (narrative) shoutr XR Chest Single viewOrdered By: Kaitlin Goldsmith on 02-28-2024 shoutr Work Phone: Vital Signs Date Time Vital Sign Value Performing Clinician Facility 02-10-2025 14:45-0400 Body height 185.[address] Deborah Penaloza DO Work Phone: 9(406)418-912880 [place] [address] 02-10-2025 14:41-0400 Body mass index (BMI) [Ratio] 22.1 kg/m2 Dr. Deborah Penaloza DO Work Phone: 6(111)949-240980 [place] [address] 02-10-2025 14:41-0400 Body weight 76.[address] Deborah Penaloza DO Work Phone: 1(003)314-913480 [place] [address] 02-10-2025 14:41-0400 Diastolic blood pressure 70 mm[Hg] Dr. Deborah Penaloza DO Work Phone: 7(135)325-775380 [place] [address] 02-10-2025 14:41-0400 Heart rate 102 /min Dr. Deborah Penaloza DO Work Phone: 5(466)225-269532 [place] [address] 02-10-2025 14:41-0400 Respiratory rate 18 /min Dr. Deborah Penaloza DO Work Phone: 7(352)276-835580 [place] [address] 02-10-2025 14:41-0400 SaO2% (BldA) [Mass fraction] 95 % Dr. Deborah Penaloza DO Work Phone: 7(396)643-170180 [place] [address] 02-10-2025 14:41-0400 Systolic blood pressure 98 mm[Hg] Dr. Deborah Penaloza DO Work Phone: 5(313)762-396780 [place] [address] 01-29-2025 20:00-0400 Diastolic blood pressure 88 mm[Hg] Dr. Deborah Penaloza DO Work Phone: 2(354)009-679132 [place] [address] 01-29-2025 20:00-0400 Heart rate 98 /min Dr. Deborah Penaloza DO Work Phone: 7(471)043-978280 [place] [address] 01-29-2025 20:00-0400 Respiratory rate 25 /min Dr. Deborah Penaloza DO Work Phone: 3(519)264-501780 [place] [address] 01-29-2025 20:00-0400 SaO2% (BldA) [Mass fraction] 95 % Dr. Deborah Penaloza DO Work Phone: 1(947)020-340180 [place] [address] 01-29-2025 20:00-0400 Systolic blood pressure 104 mm[Hg] Dr. Deborah Penaloza DO Work Phone: 7(972)567-554580 [place] [address] 01-29-2025 15:24-0400 Body temperature 97 [degF] Dr. Deborah Penaloza DO Work Phone: 7(906)566-591480 [place] [address] 01-29-2025 09:34-0400 Inhaled oxygen flow rate 2 L/min Dr. Deborah Penaloza DO Work Phone: 6(644)348-781780 [place] [address] 01-29-2025 08:33-0400 Body mass index (BMI) [Ratio] 23 kg/m2 Dr. Deborah Penaloza DO Work Phone: 1(729)982-767880 [place] [address] 01-29-2025 08:33-0400 Body weight 79.[address] Deborah Penaloza DO Work Phone: 8(433)075-421080 [place] [address] 01-29-2025 07:49-0400 Body height 185.[address] Deborah Penaloza DO Work Phone: 2(244)675-642532 [place] [address] 01-10-2025 09:15-0400 Body temperature 98.2 [degF] Dr. Deborah Peanloza DO Work Phone: 8(054)286-312180 [place] [address] 01-10-2025 09:15-0400 Diastolic blood pressure 84 mm[Hg] Dr. Deborah Penaloza DO Work Phone: 0(606)050-944032 [place] [address] 01-10-2025 09:15-0400 Heart rate 53 /min Dr. Deborah Penaloza DO Work Phone: 6(250)681-956132 [place] [address] 01-10-2025 09:15-0400 Respiratory rate 17 /min Dr. Deborah Penaloza DO Work Phone: 5(955)528-641332 [place] [address] 01-10-2025 09:15-0400 SaO2% (BldA) [Mass fraction] 98 % Dr. Deborah Penaloza DO Work Phone: 5(943)644-646632 [place] [address] 01-10-2025 09:15-0400 Systolic blood pressure 109 mm[Hg] Dr. Deborah Penaloza DO Work Phone: 5(892)730-749180 [place] [address] 01-10-2025 05:37-0400 Diastolic blood pressure 80 mm[Hg] Dr. Deborah Penaloza DO Work Phone: 7(097)058-173580 [place] [address] 01-10-2025 05:37-0400 Systolic blood pressure 107 mm[Hg] Dr. Deborah Penaloza DO Work Phone: 1(027)500-425080 [place] [address] 01-10-2025 04:57-0400 Body mass index (BMI) [Ratio] 21.3 kg/m2 Dr. Deborah Penaloza DO Work Phone: 9(231)179-823680 [place] [address] 01-10-2025 04:57-0400 Body weight 73.[address] Deborah Penaloza DO Work Phone: 1(840)969-259580 [place] [address] 01-10-2025 03:15-0400 Body temperature 97.8 [degF] Dr. Deborah Penaloza DO Work Phone: 6(628)160-123232 [place] [address] 01-10-2025 03:15-0400 Heart rate 100 /min Dr. Deborah Penaloza DO Work Phone: 8(501)711-132432 [place] [address] 01-10-2025 03:15-0400 Respiratory rate 16 /min Dr. Deborah Penaloza DO Work Phone: 9(806)198-432832 [place] [address] 01-10-2025 03:15-0400 SaO2% (BldA) [Mass fraction] 100 % Dr. Deborah Penaloza DO Work Phone: 5(160)750-262632 [place] [address] 01-05-2025 14:36-0400 Body height 185.[address] Deborah Penaloza DO Work Phone: 9(429)455-601380 [place] [address] 01-04-2025 14:05-0400 Body temperature 98 [degF] Dr. Deborah Penaloza DO Work Phone: 4(461)226-655980 [place] [address] 01-04-2025 14:05-0400 Diastolic blood pressure 97 mm[Hg] Dr. Deborah Penaloza DO Work Phone: 2(919)111-177680 [place] [address] 01-04-2025 14:05-0400 Heart rate 53 /min Dr. Deborah Penaloza DO Work Phone: 7(527)717-523580 [place] [address] 01-04-2025 14:05-0400 Respiratory rate 23 /min Dr. Deborah Penaloza DO Work Phone: 1(249)209-424680 [place] [address] 01-04-2025 14:05-0400 SaO2% (BldA) [Mass fraction] 100 % Dr. Deborah Penaloza DO Work Phone: 0(970)752-313780 [place] [address] 01-04-2025 14:05-0400 Systolic blood pressure 126 mm[Hg] Dr. Deborah Penaloza DO Work Phone: 4(401)341-192880 [place] [address] 01-04-2025 14:00-0400 Inhaled oxygen flow rate 2 L/min Dr. Deborah Penaloza DO Work Phone: 9(668)719-486880 [place] [address] 01-04-2025 07:28-0400 Body height 185.[address] Deborah Penaloza DO Work Phone: 8(418)014-433580 [place] [address] 01-04-2025 07:28-0400 Body mass index (BMI) [Ratio] 23.9 kg/m2 Dr. Deborah Penaloza DO Work Phone: 6(841)238-102080 [place] [address] 01-04-2025 07:28-0400 Body weight 82.[address] Deborah Penaloza DO Work Phone: 6(616)949-934280 [place] [address] 10-26-2024 05:14-0400 Body temperature 99.9 [degF] Phoebe Sanderson MD Work Phone: [employer] 10-26-2024 05:14-0400 Diastolic blood pressure 78 mm[Hg] Phoebe Sanderson MD Work Phone: [employer] 10-26-2024 05:14-0400 Heart rate 102 /min Phoebe Sanderson MD Work Phone: [employer] 10-26-2024 05:14-0400 Respiratory rate 19 /min Phoebe Sanderson MD Work Phone: [employer] 10-26-2024 05:14-0400 SaO2% (BldA) [Mass fraction] 97 % Phoebe Sanderson MD Work Phone: [employer] 10-26-2024 05:14-0400 Systolic blood pressure 96 mm[Hg] Phoebe Sanderson MD Work Phone: [employer] 10-20-2024 22:38-0400 Heart rate 53 /min Phoebe Sanderson MD Work Phone: [employer] 10-20-2024 17:00-0400 Body mass index (BMI) [Ratio] 19.74 kg/m2 Phoebe Sanderson MD Work Phone: [employer] 10-20-2024 17:00-0400 Body weight 67.86 kg Phoebe Sanderson MD Work Phone: [employer] 10-18-2024 18:03-0400 Heart rate 117 /min Phoebe Sanderson MD Work Phone: [employer] 10-18-2024 05:18-0400 Body height 185.4 cm Phoebe Sanderson MD Work Phone: [employer] 10-13-2024 15:57-0400 Body temperature 98.4 [degF] Luis Eduardo Bernal DO Work Phone: [employer] 10-13-2024 15:57-0400 Diastolic blood pressure 77 mm[Hg] Luis Eduardo Bernal DO Work Phone: [employer] 10-13-2024 15:57-0400 Heart rate 98 /min Luis Eduardo Bernal DO Work Phone: [employer] 10-13-2024 15:57-0400 Respiratory rate 16 /min Luis Eduardo Hunte DO Work Phone: [employer] 10-13-2024 15:57-0400 SaO2% (BldA) [Mass fraction] 97 % Luis Eduardo Hunte DO Work Phone: [employer] 10-13-2024 15:57-0400 Systolic blood pressure 103 mm[Hg] Luis Eduardo Bernal DO Work Phone: [employer] 10-06-2024 14:00-0400 Body temperature 97.7 [degF] Vargas Berg MD Work Phone: [employer] 10-06-2024 14:00-0400 Diastolic blood pressure 91 mm[Hg] Vargas Berg MD Work Phone: [employer] 10-06-2024 14:00-0400 Heart rate 137 /min Vargas Berg MD Work Phone: [employer] 10-06-2024 14:00-0400 Respiratory rate 18 /min Vargas Berg MD Work Phone: [employer] 10-06-2024 14:00-0400 SaO2% (BldA) [Mass fraction] 99 % Vargas Berg MD Work Phone: [employer] 10-06-2024 14:00-0400 Systolic blood pressure 104 mm[Hg] Vargas Berg MD Work Phone: [employer] 10-06-2024 10:00-0400 Body mass index (BMI) [Ratio] 22.25 kg/m2 Vargas Berg MD Work Phone: [employer] 10-06-2024 10:00-0400 Body weight 76.5 kg Vargas Berg MD Work Phone: [employer] 10-02-2024 11:34-0400 Heart rate 112 /min Vargas Berg MD Work Phone: [employer] 10-01-2024 19:45-0400 Body height 185.4 cm Vargas Berg MD Work Phone: [facility] 09-17-2024 17:43-0400 Diastolic blood pressure 85 mm[Hg] King Medina DO Work Phone: [facility] 09-17-2024 17:43-0400 Heart rate 109 /min King Medina DO Work Phone: [facility] 09-17-2024 17:43-0400 Respiratory rate 16 /min King Medina DO Work Phone: [facility] 09-17-2024 17:43-0400 SaO2% (BldA) [Mass fraction] 99 % King Medina DO Work Phone: [facility] 09-17-2024 17:43-0400 Systolic blood pressure 108 mm[Hg] King Medina DO Work Phone: [facility] 08-25-2024 07:29-0500 Heart rate 110 /min King Winy DO Work Phone: [facility] 08-25-2024 06:09-0500 Respiratory rate 18 /min King Skiffey DO Work Phone: [facility] 08-25-2024 06:09-0500 SaO2% (BldA) [Mass fraction] 97 % King Skivanessay DO Work Phone: [facility] 08-25-2024 06:08-0500 Diastolic blood pressure 84 mm[Hg] King Skiffey DO Work Phone: [facility] 08-25-2024 06:08-0500 Systolic blood pressure 102 mm[Hg] King Skiffey DO Work Phone: [facility] 08-25-2024 01:16-0500 Body temperature 97 [degF] King Skiffey DO Work Phone: [facility] 08-23-2024 07:25-0500 Heart rate 113 /min Joel Roa MD Work Phone: [facility] [employer] 08-23-2024 07:11-0500 Diastolic blood pressure 84 mm[Hg] Joel Roa MD Work Phone: [employer] 08-23-2024 07:11-0500 Respiratory rate 18 /min Joel Roa MD Work Phone: [facility] [employer] 08-23-2024 07:11-0500 SaO2% (BldA) [Mass fraction] 100 % Joel Roa MD Work Phone: [employer] 08-23-2024 07:11-0500 Systolic blood pressure 103 mm[Hg] Joel Roa MD Work Phone: [employer] 08-23-2024 05:33-0500 Body height 185.4 cm Joel Roa MD Work Phone: [facility] [employer] 08-23-2024 05:33-0500 Body mass index (BMI) [Ratio] 20.85 kg/m2 Joel Roa MD Work Phone: [employer] 08-23-2024 05:33-0500 Body temperature 97.59 [degF] Joel Roa MD Work Phone: [employer] 08-23-2024 05:33-0500 Body weight 71.67 kg Joel Roa MD Work Phone: [employer] 08-20-2024 10:52-0500 Body temperature 97.7 [degF] Joel Fernandes MD Work Phone: [employer] 08-20-2024 10:52-0500 Diastolic blood pressure 64 mm[Hg] Joel Fernandes MD Work Phone: [employer] 08-20-2024 10:52-0500 Heart rate 59 /min Joel Fernandes MD Work Phone: [employer] 08-20-2024 10:52-0500 Respiratory rate 14 /min Joel Fernandes MD Work Phone: [employer] 08-20-2024 10:52-0500 SaO2% (BldA) [Mass fraction] 96 % Joel Fernandes MD Work Phone: [employer] 08-20-2024 10:52-0500 Systolic blood pressure 95 mm[Hg] Joel Fernandes MD Work Phone: [facility] 08-20-2024 03:17-0500 Body mass index (BMI) [Ratio] 20.89 kg/m2 Joel Fernandes MD Work Phone: [facility] 08-20-2024 03:17-0500 Body weight 71.8 kg Joel Fernandes MD Work Phone: [facility] 08-15-2024 08:50-0500 Body height 185.4 cm Joel Fernandes MD Work Phone: [facility] 08-05-2024 08:18-0500 Diastolic blood pressure 89 mm[Hg] Dia Gaitan RN [facility] 08-05-2024 08:18-0500 Heart rate 58 /min Dia Gaiatn RN [facility] 08-05-2024 08:18-0500 Respiratory rate 16 /min Dia Gaitan RN [facility] 08-05-2024 08:18-0500 SaO2% (BldA) [Mass fraction] 100 % Dia Gaitan RN [facility] 08-05-2024 08:18-0500 Systolic blood pressure 114 mm[Hg] Dia Gaitan RN [facility] 08-04-2024 23:07-0500 Body temperature 100.09 [degF] Dia Gaitan RN [facility] 08-04-2024 10:02-0500 Body height 185.4 cm Sergei Astudillo MD Work Phone: [facility] 08-04-2024 10:02-0500 Body mass index (BMI) [Ratio] 22.03 kg/m2 Sergei Astudillo MD Work Phone: [facility] 08-04-2024 10:02-0500 Body weight 75.75 kg Sergei Astudillo MD Work Phone: [facility] 08-04-2024 10:02-0500 Diastolic blood pressure 82 mm[Hg] Sergei Astudillo MD Work Phone: [facility] [employer] 08-04-2024 10:02-0500 Heart rate 79 /min Sergei Astudillo MD Work Phone: [employer] 08-04-2024 10:02-0500 SaO2% (BldA) [Mass fraction] 97 % Sergei Astudillo MD Work Phone: [employer] 08-04-2024 10:02-0500 Systolic blood pressure 132 mm[Hg] Sergei Astudillo MD Work Phone: [employer] 07-30-2024 11:26-0500 Body temperature 97 [degF] Bertha Pichardo DO Work Phone: [employer] 07-30-2024 11:26-0500 Diastolic blood pressure 84 mm[Hg] Bertha Kylee DO Work Phone: [employer] 07-30-2024 11:26-0500 Heart rate 56 /min Bertha Kylee DO Work Phone: [employer] 07-30-2024 11:26-0500 Respiratory rate 18 /min Bertha Kylee DO Work Phone: [employer] 07-30-2024 11:26-0500 SaO2% (BldA) [Mass fraction] 97 % Bertha Kylee DO Work Phone: [employer] 07-30-2024 11:26-0500 Systolic blood pressure 115 mm[Hg] Bertha Kylee DO Work Phone: [employer] 07-30-2024 05:00-0500 Body mass index (BMI) [Ratio] 21.53 kg/m2 Bertha Kylee DO Work Phone: [employer] 07-30-2024 05:00-0500 Body weight 74.03 kg Bertha Kylee DO Work Phone: [employer] 07-21-2024 09:35-0500 Body height 185.4 cm Morgan Xiao CNP Work Phone: [employer] 07-21-2024 09:35-0500 Body mass index (BMI) [Ratio] 24.96 kg/m2 Morgan Ulloa APRN - OFFICE CORRESPONDENT Work Phone: [facility] [employer] 07-21-2024 09:35-0500 Body weight 85.82 kg Morgan Ulloa APRN - OFFICE CORRESPONDENT Work Phone: [facility] [employer] 07-21-2024 09:35-0500 Diastolic blood pressure 98 mm[Hg] Morgan Ulloa CERTIFIED RECREATIONAL THERAPIST - OFFICE CORRESPONDENT Work Phone: [facility] [employer] 07-21-2024 09:35-0500 Heart rate 104 /min Morgan Ulloa CERTIFIED RECREATIONAL THERAPIST - OFFICE CORRESPONDENT Work Phone: [facility] [employer] 07-21-2024 09:35-0500 SaO2% (BldA) [Mass fraction] 94 % Morgan Ulloa APRN - OFFICE CORRESPONDENT Work Phone: [facility] [employer] 07-21-2024 09:35-0500 Systolic blood pressure 120 mm[Hg] Morgan Ulloa APRN - OFFICE CORRESPONDENT Work Phone: [facility] [employer] 07-16-2024 08:00-0500 Body temperature 97 [degF] ANGELO Kenny MD Work Phone: [facility] [employer] 07-16-2024 08:00-0500 Diastolic blood pressure 66 mm[Hg] ANGELO Kenny MD Work Phone: [facility] [employer] 07-16-2024 08:00-0500 Heart rate 88 /min ANGELO Kenny MD Work Phone: [facility] [employer] 07-16-2024 08:00-0500 Respiratory rate 18 /min ANGELO Kenny MD Work Phone: [employer] 07-16-2024 08:00-0500 SaO2% (BldA) [Mass fraction] 99 % ANGELO Kenny MD Work Phone: [facility] [employer] 07-16-2024 08:00-0500 Systolic blood pressure 99 mm[Hg] ANGELO Kenny MD Work Phone: [facility] [employer] 07-16-2024 06:16-0500 Body mass index (BMI) [Ratio] 23.71 kg/m2 ANGELO Kenny MD Work Phone: [facility] [employer] 07-16-2024 06:16-0500 Body weight 81.5 kg ANGELO Kenny MD Work Phone: [facility] [employer] 07-12-2024 17:13-0500 Body height 185.4 cm ANGELO Kenny MD Work Phone: [facility] [employer] 07-07-2024 12:57-0500 Body height 185.4 cm Alex Zhang MD Work Phone: [facility] [employer] 07-07-2024 12:57-0500 Body mass index (BMI) [Ratio] 23.41 kg/m2 Alex Zhang MD Work Phone: [facility] [employer] 07-07-2024 12:57-0500 Body weight 80.47 kg Alex Zhang MD Work Phone: [facility] [employer] 07-07-2024 12:57-0500 Diastolic blood pressure 88 mm[Hg] Alex Zhang MD Work Phone: [facility] [employer] 07-07-2024 12:57-0500 Heart rate 112 /min Alex Zhang MD Work Phone: [facility] [employer] 07-07-2024 12:57-0500 SaO2% (BldA) [Mass fraction] 94 % Alex Zhang MD Work Phone: [facility] [employer] 07-07-2024 12:57-0500 Systolic blood pressure 106 mm[Hg] Alex Zhang MD Work Phone: [facility] [employer] 07-05-2024 14:00-0500 Diastolic blood pressure 88 mm[Hg] Kishore Mudrakola DO Work Phone: [facility] [employer] 07-05-2024 14:00-0500 Heart rate 98 /min Kishore Mudrakola DO Work Phone: [facility] [employer] 07-05-2024 14:00-0500 Respiratory rate 16 /min Kishore Mudrakola DO Work Phone: [facility] [employer] 07-05-2024 14:00-0500 SaO2% (BldA) [Mass fraction] 97 % Kishore Alonso DO Work Phone: [facility] [employer] 07-05-2024 14:00-0500 Systolic blood pressure 124 mm[Hg] Kishore Alonso DO Work Phone: [facility] [employer] 07-05-2024 12:00-0500 Body temperature 98.2 [degF] Kishore Alonso DO Work Phone: [facility] [employer] 07-05-2024 08:00-0500 Body mass index (BMI) [Ratio] 22.48 kg/m2 Kishore Alonso DO Work Phone: [facility] [employer] 07-05-2024 08:00-0500 Body weight 77.29 kg Kishore Alonso DO Work Phone: [facility] [employer] 07-04-2024 06:00-0500 Body height 185.4 cm Kishore Alonso DO Work Phone: [facility] [employer] 07-01-2024 11:08-0500 Diastolic blood pressure 92 mm[Hg] Alex Zhang MD Work Phone: [facility] [employer] 07-01-2024 11:08-0500 Systolic blood pressure 125 mm[Hg] Alex Zhang MD Work Phone: [facility] [employer] 07-01-2024 10:54-0500 Body height 185.4 cm Alex Zhang MD Work Phone: [facility] [employer] 07-01-2024 10:54-0500 Body mass index (BMI) [Ratio] 23.09 kg/m2 Alex Zhang MD Work Phone: [employer] 07-01-2024 10:54-0500 Body weight 79.38 kg Alex Zhang MD Work Phone: [facility] [employer] 07-01-2024 10:54-0500 Heart rate 112 /min Alex Zhang MD Work Phone: [facility] [employer] 01-02-2025 10:54-0500 SaO2% (BldA) [Mass fraction] 98 % Alex Zhang MD Work Phone: [facility] [employer] 06-21-2024 13:25-0500 Heart rate 102 /min Joel Reyes MD Work Phone: [facility] [employer] 06-21-2024 13:25-0500 SaO2% (BldA) [Mass fraction] 98 % Joel Reyes MD Work Phone: [facility] [employer] 06-21-2024 13:24-0500 Body temperature 97.9 [degF] Joel Reyes MD Work Phone: [facility] [employer] 06-21-2024 13:24-0500 Diastolic blood pressure 83 mm[Hg] Joel Reyes MD Work Phone: [facility] [employer] 06-21-2024 13:24-0500 Respiratory rate 18 /min Joel Reyes MD Work Phone: [facility] [employer] 06-21-2024 13:24-0500 Systolic blood pressure 116 mm[Hg] Joel Reyes MD Work Phone: [facility] [employer] 06-20-2024 19:35-0500 Body mass index (BMI) [Ratio] 22.13 kg/m2 Joel Reyes MD Work Phone: [facility] [employer] 06-20-2024 19:35-0500 Body weight 76.07 kg Joel Reyes MD Work Phone: [facility] [employer] 06-15-2024 11:19-0500 Body height 185.4 cm Joel Reyes MD Work Phone: [facility] [employer] 06-08-2024 10:45-0500 Diastolic blood pressure 100 mm[Hg] Morgan Laila CERTIFIED RECREATIONAL THERAPIST - OFFICE CORRESPONDENT Work Phone: [facility] [employer] 06-08-2024 10:45-0500 Systolic blood pressure 124 mm[Hg] Morgan Laila CERTIFIED RECREATIONAL THERAPIST - OFFICE CORRESPONDENT Work Phone: [facility] [employer] 06-08-2024 10:32-0500 Body height 185.4 cm Morgan Laila CERTIFIED RECREATIONAL THERAPIST - OFFICE CORRESPONDENT Work Phone: [employer] [employer] 06-08-2024 10:32-0500 Body mass index (BMI) [Ratio] 24.04 kg/m2 Morgan Xiao CNP Work Phone: [facility] [employer] 06-08-2024 10:32-0500 Body weight 82.64 kg Morgan Ulloa APRN - VIKKI Work Phone: [facility] [employer] 06-08-2024 10:32-0500 Heart rate 117 /min Morgan Ulloa APRN - VIKKI Work Phone: [facility] [employer] 06-08-2024 10:32-0500 SaO2% (BldA) [Mass fraction] 98 % Morgan Xiao CNP Work Phone: [facility] [employer] 06-03-2024 20:52-0500 Diastolic blood pressure 89 mm[Hg] Lewis Alexander DO Work Phone: [facility] [employer] 06-03-2024 20:52-0500 Heart rate 56 /min Lewis Alexander DO Work Phone: [facility] [employer] 06-03-2024 20:52-0500 Respiratory rate 18 /min Lewis Alexander DO Work Phone: [facility] [employer] 06-03-2024 20:52-0500 SaO2% (BldA) [Mass fraction] 99 % Leiws Alexander DO Work Phone: [facility] [employer] 06-03-2024 20:52-0500 Systolic blood pressure 124 mm[Hg] Lewis Alexander DO Work Phone: [facility] [employer] 06-03-2024 18:36-0500 Body temperature 97.3 [degF] Lewis Alexander DO Work Phone: [facility] [employer] 06-01-2024 15:44-0500 Body temperature 97.2 [degF] Izaiah Martins MD Work Phone: [facility] [employer] 06-01-2024 15:44-0500 Diastolic blood pressure 98 mm[Hg] Izaiah Martins MD Work Phone: [facility] 06-01-2024 15:44-0500 Heart rate 51 /min Izaiah Martins MD Work Phone: [facility] [employer] 06-01-2024 15:44-0500 Respiratory rate 16 /min Izaiah Martins MD Work Phone: [facility] [employer] 06-01-2024 15:44-0500 SaO2% (BldA) [Mass fraction] 97 % Izaiah Martins MD Work Phone: [facility] 06-01-2024 15:44-0500 Systolic blood pressure 130 mm[Hg] Izaiah Martins MD Work Phone: [employer] 05-29-2024 13:57-0500 Body height 185.4 cm Izaiah Martins MD Work Phone: [employer] 05-28-2024 14:41-0500 Body mass index (BMI) [Ratio] 23.75 kg/m2 Izaiah Martins MD Work Phone: [facility] 05-28-2024 14:41-0500 Body weight 81.65 kg Izaiah Martins MD Work Phone: [facility] 04-28-2024 10:29-0400 Body temperature 97.9 [degF] Juan Carlos Le MD Work Phone: [facility] 04-28-2024 10:29-0400 Heart rate 106 /min Juan Carlos Le MD Work Phone: [facility] 04-28-2024 10:29-0400 SaO2% (BldA) [Mass fraction] 95 % Juan Carlos Le MD Work Phone: [facility] 04-28-2024 10:14-0400 Diastolic blood pressure 92 mm[Hg] Juan Carlos Le MD Work Phone: [facility] 04-28-2024 10:14-0400 Systolic blood pressure 121 mm[Hg] Juan Carlos Le MD Work Phone: [facility] 04-28-2024 07:39-0400 Body mass index (BMI) [Ratio] 25.3 kg/m2 Juan Carlos Le MD Work Phone: [facility] [employer] 04-28-2024 07:39-0400 Body weight 87 kg Juan Carlos Le MD Work Phone: [facility] [employer] 04-28-2024 07:39-0400 Respiratory rate 16 /min Juan Carlos Le MD Work Phone: [facility] [employer] 04-28-2024 02:39-0400 Body height 185.4 cm Juan Carlos Le MD Work Phone: [facility] [employer] 03-07-2024 07:21-0400 Heart rate 88 /min Shane Stern MD Work Phone: [facility] [employer] 03-07-2024 07:21-0400 Respiratory rate 16 /min Shane Stern MD Work Phone: [facility] [employer] 03-07-2024 07:21-0400 SaO2% (BldA) [Mass fraction] 98 % Shane Stern MD Work Phone: [facility] [employer] 03-07-2024 07:21-0400 Body temperature 97.59 [degF] Shane Stern MD Work Phone: [facility] [employer] 03-07-2024 07:21-0400 Diastolic blood pressure 102 mm[Hg] Shane Stern MD Work Phone: [facility] [employer] 03-07-2024 07:21-0400 Systolic blood pressure 142 mm[Hg] Shane Stern MD Work Phone: [facility] [employer] 03-07-2024 03:10-0400 Body mass index (BMI) [Ratio] 24.59 kg/m2 Shane Stern MD Work Phone: [facility] [employer] 03-07-2024 03:10-0400 Body weight 84.55 kg Shane Stern MD Work Phone: [facility] [employer] 03-05-2024 21:50-0400 Body height 185.4 cm Shane Stern MD Work Phone: [facility] [employer] 03-01-2024 11:39-0400 Body temperature 96.91 [degF] Vic Loaiza MD Work Phone: [facility] [employer] 03-01-2024 11:39-0400 Diastolic blood pressure 107 mm[Hg] Vic Loaiza MD Work Phone: [facility] 03-01-2024 11:39-0400 Heart rate 93 /min Vic Loaiza MD Work Phone: [facility] [employer] 03-01-2024 11:39-0400 Respiratory rate 16 /min Vic Loaiza MD Work Phone: [facility] [employer] 03-01-2024 11:39-0400 SaO2% (BldA) [Mass fraction] 98 % Vic Loaiza MD Work Phone: [facility] 03-01-2024 11:39-0400 Systolic blood pressure 141 mm[Hg] Vic Loaiza MD Work Phone: [facility] 02-29-2024 09:30-0400 Body height 185.4 cm Vic Loaiza MD Work Phone: [facility] 02-29-2024 09:30-0400 Body mass index (BMI) [Ratio] 27.05 kg/m2 Vic Loaiza MD Work Phone: [facility] 02-29-2024 09:30-0400 Body weight 92.99 kg Vic Loaiza MD Work Phone: [employer] Encounters Encounter Date Encounter Type Care Provider Facility Start: 02-10-2025 End: 02-10-[address] Joel Berg MD -[facility] Work Phone: Start: 02-10-2025 End: 02-10-[address] Deborah Penaloza DO Work Phone: -[facility] Start: 01-29-2025 End: 02-01-2025 Evaluation and management of inpatient NIC VLAENTEMarguerite Facility:[facility] Start: 01-29-2025 End: 01-29-2025 Emergency department patient visit Dr. Deborah Penaloza DO Work Phone: -Emergency Department Work Phone: Start: 01-24-2025 End: 01-24-2025 Patient Outreach Mallika Quiles [facility] Work Phone: Pharmacy Comment on above: Transition Of Care; Heart Failure (TCM Pharmacy-Hospital discharge 01/21/25/) Start: 01-19-2025 End: 01-21-2025 Evaluation and management of inpatient MAGED SUNNY Facility:[facility] Start: 01-10-[address] Deborah sam DO Work Phone: -[facility] Start: 01-10-2025 Non-patient / Non-visit Dr. Lavon french MD -[facility] Start: 01-09-2025 Non-patient / Non-visit Dr. Anshul Worley [facility] DO [facility] Work Phone: Start: 01-08-2025 Non-patient / Non-visit Dr. Anshul fitzpatrick DO [facility] Work Phone: Start: 01-07-2025 Non-patient / Non-visit Dr. Anshul Worley [facility] DO [facility] Work Phone: Start: 01-06-2025 Non-patient / Non-visit Dr. Anshul Worley [facility] DO [facility] Work Phone: Start: 01-05-2025 Non-patient / Non-visit Dr. Anshul Worley [facility] DO [facility] Work Phone: Start: 01-04-2025 ambulatory No Primary Car e Physician Facility:[facility] Start: 01-04-2025 Non-patient / Non-visit Dr. Odell [place] -[facility] Start: 01-04-2025 Non-patient / Non-visit Dr. Anshul Worley [facility] DO [facility] Work Phone: Start: 01-04-2025 ambulatory No Primary Car e Physician Facility:[facility] Start: 01-04-2025 End: 01-10-2025 Evaluation and management of inpatient Dr. Anshul Lemus DO -Progressive Care Unit Work Phone: Start: 12-24-2024 End: 12-24-2024 Refill Yuval Gayle MD Work Phone: [facility] Comment on above: Refill Start: 12-17-2024 End: 12-17-2024 Letter encounter Yuval Gayle MD Work Phone: [facility] Start: 12-13-2024 End: 12-13-2024 Refill Sigrid Roderick CERTIFIED RECREATIONAL THERAPIST-OFFICE CORRESPONDENT Work Phone: [facility] Comment on above: Refill Start: 12-02-2024 End: 12-02-2024 Orders Only Yuval Gayle MD Work Phone: [facility] Start: 11-21-2024 End: 11-26-2024 Refill Yuval Gayle MD Work Phone: [facility] Comment on above: Refill Start: 10-27-2024 End: 11-01-2024 ambulatory Radha Flores RN [facility] Care Management/Patient Access Start: 10-27-2024 End: 11-01-2024 Follow-up encounter Radha Flores RN [facility] Care Management/Patient Access Comment on above: Hospital follow-up; Transitional Care Management (HF DC 10/26/24) Start: 10-25-2024 Evaluation and manag ement of inpatient JIM STOCKTON Facility:[facility] Start: 10-24-2024 End: 10-24-2024 Letter encounter Yuval Gayle MD Work Phone: [facility] Start: 10-18-2024 End: 10-26-2024 Evaluation and management of inpatient ANSHUL LAIRD Facility:[facility] Start: 10-17-2024 Emergency department patient visit UNKNOWN PROVIDER Facility:[facility] Start: 10-17-2024 End: 10-26-2024 Evaluation and management of inpatient Phoebe Sanderson MD Work Phone: [facility] Comment on above: Pneumonia [...] Emergency department patient visit Luis Eduardo Bernal Work Phone: [facility] Comment on above: Cough (Pt presents t o ed dt chronic cough non productive dry at night, intermittent abd pain (mid lower). -n/v, +d. -cp ) Start: 10-13-2024 End: 10-13-2024 ambulatory Yuval Gayle MD Work Phone: [facility] Start: 10-07-2024 End: 10-08-2024 ambulatory Radha Flores RN [facility] Care Management/Patient Access Start: 10-07-2024 End: 10-08-2024 Follow-up encounter Radha Flores RN [facility] Care Management/Patient Access Comment on above: Hospital follow-up ( HF DC 10/06/24); Transitional Care Management Start: 10-02-2024 Evaluation and manag ement of inpatient UNKNOWN PROVIDER Facility[facility] Start: 10-02-2024 Evaluation and manag ement of inpatient UNKNOWN PROVIDER Facility:[facility] Start: 09-30-2024 End: 10-06-2024 Evaluation and management of inpatient MIGUEL ANGEL BLACKMAN [facility] Start: 09-30-2024 End: 09-30-2024 [facility] Start: 09-30-2024 Emergency department patient visit UNKNOWN PROVIDER Facility[facility] Start: 09-30-2024 End: 10-06-2024 Evaluation and management of inpatient Vargas Berg MD Work Phone: [facility] Comment on above: HFrEF (heart failure with [...] 09-30-2024 Emergency department patient visit UNKNOWN PROVIDER Facility[facility] Start: 09-17-2024 End: 09-19-2024 ambulatory SHARI HIGGINS Facility:[id number] Start: 09-17-2024 End: 09-17-2024 Patient encounter procedure King Medina DO Work Phone: [facility] Comment on above: Chest pain, unspecif ied type (Primary Dx); Nausea vomiting and diarrhea Start: 09-17-2024 End: 09-18-2024 ambulatory UNKNOWN PROVIDER Facility[facility] Start: 09-05-2024 End: 09-05-2024 Evaluation and management of inpatient YUVAL GAYLE [facility] Start: 09-04-2024 End: 09-04-2024 Evaluation and management of inpatient YUVAL GAYLE [facility] Start: 09-02-2024 End: 09-02-2024 Evaluation and management of inpatient LANCE KeyonBill ESAU [facility] Start: 09-01-2024 End: 09-01-2024 Evaluation and management of inpatient UNKNOWN PROVIDER Facility:[facility] Start: 09-01-2024 End: 09-11-2024 Evaluation and management of inpatient CARDIOLOGY HEART FAILURE CONSULT Facility:[facility] Start: 09-01-2024 Evaluation and manag ement of inpatient UNKNOWN PROVIDER Facility:[facility] Start: 08-31-2024 Emergency department patient visit UNKNOWN PROVIDER Facility[facility] Start: 08-31-2024 End: 08-31-2024 ambulatory UNKNOWN PROVIDER Facility:[facility] Start: 08-27-2024 End: 08-27-2024 ambulatory UNKNOWN PROVIDER Facility:[facility] Start: 08-25-2024 End: 09-21-2024 Telephone encounter iDa Gaitan RN [facility] PCU 5W Comment on above: Heart Failure Outrea ch Start: 08-25-2024 End: 08-25-2024 Emergency department patient visit King Shaffer Minal KERR Work Phone: [facility] ED Comment on above: Elevated serum creat inine (Primary Dx); Elevated brain natriuretic peptide (BNP) level Start: 08-23-2024 End: 08-23-2024 Telephone encounter Manuela White [facility] Work Phone: [facility] Comment on above: Other (HFdEF) Start: 08-23-2024 End: 08-23-2024 Emergency department patient visit Joel Roa MD Work Phone: [facility] ED Comment on above: Biventricular conges tive heart failure (HCC) (Primary Dx); Generalized abdominal pain; Chest pain, unspecified type Start: 08-22-2024 End: 08-23-2024 Emergency department patient visit NIC ROSADO Facility:[facility] Start: 08-12-2024 End: 08-12-2024 Telephone encounter Christopher Tai MD Work Phone: [facility] Start: 08-09-2024 End: 08-20-2024 Evaluation and management of inpatient Joel Fernandes MD Work Phone: [facility] PCU 5W Start: 08-05-2024 End: 08-05-2024 Yobany Astudillo MD Work Phone: [facility] Start: 08-05-2024 End: 08-05-2024 Emergency department patient visit Dia Gaitan RN [facility] EMERGENCY DEPT Comment on above: SCHUYLER (acute kidney in jury) (HCC) (Primary Dx); Shortness of breath; Chest pain, unspecified type Start: 08-04-2024 End: 08-04-2024 Subsequent hospital visit by physician Armando Ecg [facility] Non-Invasive Cardiology Comment on above: Arrived Start: 08-04-2024 End: 08-04-2024 Emergency department patient visit JAMAL DIA [facility] Start: 08-04-2024 End: 08-04-2024 Office outpatient visit 25 minutes Sergei Astudillo MD Work Phone: [facility] Comment on above: HFrEF (heart failure with reduced ejection fraction) (HCC) (Primary Dx); Essential hypertension; Acute deep vein thrombosis (DVT) of other specified vein of both lower extremities (HCC) Start: 08-04-2024 End: 08-04-2024 ambulatory SERGEI ASTUDILLO [facility] Start: 08-03-2024 End: 08-12-2024 Telephone encounter Dia Gaitan RN [facility] PCU 5W Start: 08-02-2024 End: 08-12-2024 Telephone encounter Kaitlin Gonzalez LPN [facility] Clinical Communication Comment on above: Hospital Follow-up Start: 07-23-2024 End: 07-30-2024 Evaluation and management of inpatient Bertha Pichardo DO Work Phone: [facility] PCU 2E Comment on above: Acute kidney injury (HCC) (Primary Dx); History of congestive heart failure; Bilateral lower extremity edema; SCHUYLER (acute kidney injury) (HCC) Start: 07-23-2024 End: 07-23-2024 Telephone encounter Morgan Ulloa APRN - OFFICE CORRESPONDENT Work Phone: [facility] Comment on above: Appointment Request Results (Worsening r enal function, hyperkalemia, heart failure) Start: 07-21-2024 End: 07-21-2024 ambulatory MORGAN ULLOA [facility] Start: 07-21-2024 End: 07-21-2024 Office outpatient visit 25 minutes Morgan Ulloa CERTIFIED RECREATIONAL THERAPIST - OFFICE CORRESPONDENT Work Phone: [facility] Comment on above: HFrEF (heart failure with reduced ejection fraction) (HCC) (Primary Dx); Acute HFrEF (heart failure with reduced ejection fraction) (HCC); Essential hypertension; Stage 3a chronic kidney disease (HCC); Noncompliance Start: 07-19-2024 End: 07-20-2024 Telephone encounter Kaitlin Gonzalez [employer] [facility] Clinical Communication Comment on above: Hospital Follow-up Start: 07-16-2024 End: 07-16-2024 Orders Only Luma Donaldo Joy CERTIFIED RECREATIONAL THERAPIST - OFFICE CORRESPONDENT Work Phone: [facility] Comment on above: Chronic systolic hea rt failure (HCC) (Primary Dx) Start: 07-13-2024 End: 07-13-2024 Emergency department patient visit JAMAL DIA [facility] Start: 07-11-2024 End: 07-16-2024 Evaluation and management of inpatient J Melita Kenny MD Work Phone: [facility] PCU 2E Comment [...] 25 minutes Alex Zhang MD Work Phone: [facility] Comment on above: Acute systolic heart failure (HCC) (Primary Dx); Essential hypertension; Chronic systolic heart failure (HCC); Chronic kidney disease, unspecified CKD stage Start: 07-07-2024 End: 07-07-2024 ambulatory ALEX ZHANG [facility] Start: 07-03-2024 End: 07-05-2024 Evaluation and management of inpatient Kishore Mudrakola DO Work Phone: [facility] CTV ICU T1 Comment on above: Acute kidney injury superimposed on CKD (HCC) (HCC) (Primary Dx); Transaminitis; History of CHF (congestive heart failure); HFrEF (heart failure with reduced ejection fraction) (HCC) Start: 07-01-2024 End: 07-01-2024 ambulatory ALEX ZHANG [facility] Start: 07-01-2024 End: 07-01-2024 Office outpatient visit 25 minutes Alex Zhang MD Work Phone: [facility] Comment on above: Chronic systolic hea rt failure (HCC) (Primary Dx); Essential hypertension; Chronic kidney disease, unspecified CKD stage Start: 06-24-2024 End: 06-24-2024 Telephone encounter Kaitlin Gonzalez LPN [facility] Clinical Communication Comment on above: Hospital Follow-up Start: 06-22-2024 End: 06-24-2024 Telephone encounter Kaitlin Gonzalez LPN [facility] Clinical Communication Comment on above: Hospital Follow-up Start: 06-13-2024 End: 06-21-2024 Evaluation and management of inpatient Joel Reyes MD Work Phone: [facility] PCU 2E Comment on above: Acute exacerbation o f chronic heart failure (HCC) (Primary Dx); Leg swelling; Elevated liver enzymes; Essential hypertension; Shortness of breath; Stage 3b chronic kidney disease (HCC); Pulmonary vascular congestion Start: 06-10-2024 End: 06-10-2024 Telephone encounter Morgan Ulloa APRN - OFFICE CORRESPONDENT Work Phone: [facility] Comment on above: Other Start: 06-08-2024 End: 06-08-2024 ambulatory [facility] Start: 06-08-2024 End: 06-08-2024 ambulatory MORGAN [facility] Start: 06-08-2024 End: 06-08-2024 Office outpatient visit 25 minutes Morgan Ulloa APRN - OFFICE CORRESPONDENT Work Phone: [facility] Comment on above: Essential hypertensi on (Primary Dx); Congestive heart failure, unspecified HF chronicity, unspecified heart failure type (HCC); Elevated liver enzymes; Chronic kidney disease, unspecified CKD stage Start: 06-07-2024 End: 06-07-2024 Telephone encounter Jia Victor PA-C Work Phone: [facility] Central Scheduling Comment on above: Other (Scheduling ) Start: 06-03-2024 End: 06-03-2024 Emergency department patient visit Lewis Alexander DO Work Phone: [facility] ED Comment on above: Edema of left lower extremity (Primary Dx) Start: 06-03-2024 End: 06-11-2024 Telephone encounter Kaitlin Gonzalez LPN [facility] Clinical Communication Comment on above: Hospital Follow-up Start: 06-02-2024 End: 06-07-2024 Telephone encounter Morgan Ulloa CERTIFIED RECREATIONAL THERAPIST - OFFICE CORRESPONDENT Work Phone: [facility] Comment on above: Other (Returning alesia l) Start: 05-30-2024 End: 06-07-2024 Telephone encounter Lizzette Burger CERTIFIED RECREATIONAL THERAPIST - OFFICE CORRESPONDENT Work Phone: [facility] Shonna Mann Comment on above: Appointment Request Start: 05-28-2024 End: 06-01-2024 Evaluation and management of inpatient Izaiah Martins MD Work Phone: [facility] PCU 2E Comment on above: Metabolic acidosis ( Primary Dx); HFrEF (heart failure with reduced ejection fraction) (HCC); Acute cholecystitis without calculus Start: 05-05-2024 End: 05-31-2024 Telephone encounter Dia Gaitan RN [facility] PCU 5W Comment on above: Care Coordination Start: 04-30-2024 End: 05-11-2024 Telephone encounter Sergei Astudillo MD Work Phone: [facility] [place] Comment on above: Chest Pain Start: 04-29-2024 End: 04-29-2024 Telephone encounter Dia Gaitan RN [facility] PCU 5W Comment on above: Care Coordination Start: 04-28-2024 End: 04-28-2024 Subsequent hospital visit by physician [facility] Exam Room [address] [facility] [address] Comment on above: Arrived Start: 04-28-2024 End: 04-28-2024 Emergency department patient visit JUAN CARLOS LE [facility] Start: 04-28-2024 End: 04-28-2024 ambulatory ALONZO LAUREN [facility] Start: 04-28-2024 End: 04-28-2024 Subsequent hospital visit by physician Kamaljit Ecg [facility] Stress Comment on above: Arrived Start: 04-28-2024 End: 04-28-2024 Emergency department patient visit Juan Carlos Le MD Work Phone: [facility] Clinical Decision Unit CDU Comment on above: Pulmonary vascular c ongestion (Primary Dx); Chest pain, unspecified type; Acute cough; Sore throat; Positive D dimer; Congestive heart failure, unspecified HF chronicity, unspecified heart failure type (HCC); Orthopnea; Short of breath on exertion Start: 04-27-2024 End: 04-27-2024 Telephone encounter Dia Gaitan RN [facility] PCU 5W Comment on above: Care Coordination Ou treach Start: 03-16-2024 End: 03-17-2024 Telephone encounter Jeffrey Conklin MD Work Phone: [facility] Cardiology [facility] Comment on above: Med Management Start: 03-08-2024 End: 03-16-2024 Telephone encounter Dia Gaitan RN [facility] PCU 5W Comment on above: Care Coordination Start: 03-05-2024 End: 03-05-2024 Emergency department patient visit [facility] Start: 03-05-2024 End: 03-05-2024 Subsequent hospital visit by physician [facility] Exam Room [address] [facility] [address] Comment on above: Arrived Start: 03-05-2024 End: 03-05-2024 Subsequent hospital visit by physician [facility] Xr Portable [facility] Radiology Comment on above: Arrived Start: 03-05-2024 End: 03-05-2024 Emergency department patient visit [facility] Start: 03-05-2024 End: 03-07-2024 Evaluation and management of inpatient Shane Stern MD Work Phone: [facility] PCU 2E Comment on above: Shortness of breath (Primary Dx); Acute on chronic congestive heart failure, unspecified heart failure type (HCC); Hypoxia; Pleural effusion Start: 03-02-2024 End: 03-04-2024 Telephone encounter Kaitlin Gonzalez [facility] Clinical Communication Comment on above: Hospital Follow-up Start: 02-28-2024 End: 02-28-2024 Subsequent hospital visit by physician [facility] Exam Room [address] [facility] [address] Comment on above: Arrived Start: 02-28-2024 End: 02-28-2024 Emergency department patient visit JUAN CARLOS Aleman BUNNY [facility] Start: 02-28-2024 End: 03-01-2024 Evaluation and management of inpatient Vic Loaiza MD Work Phone: [facility] PCU 2E Comment on above: Shortness of breath (Primary Dx); Congestive heart failure, unspecified HF chronicity, unspecified heart failure type (HCC); Positive D dimer; Chest pain, unspecified type; Hypertension, unspecified type Procedures Date Procedure Procedure Detail Performing Clinician Start: 01-29-[address] Faby Penaloza DO Work Phone: Start: 01-29-2025 X-ray of chest, PA a nd lateral views Dr. Deborah Penaloza DO Work Phone: Start: 01-29-[address] Deborah Penaloza DO Work Phone: Start: 01-29-2025 Computed tomography of abdomen and pelvis with intravenous contrast Dr. Deborah Penaloza DO Work Phone: Start: 01-10-[address] Deborah Penaloza DO Work Phone: Start: 01-04-[address] Deborah Penaloza DO Work Phone: Start: 07-08-[address] Deborah Penaloza DO Work Phone: Start: 01-04-2025 X-ray of chest, PA a nd lateral views Dr. Deborah Penaloza DO Work Phone: Start: 10-25-2024 Radiologic exam ches t single view Anshul Laird CERTIFIED RECREATIONAL THERAPIST-OFFICE CORRESPONDENT Work Phone: Start: 10-25-2024 Assay of magnesium Rosier angie Mckeon CERTIFIED RECREATIONAL THERAPIST-OFFICE CORRESPONDENT Work Phone: Start: 10-25-2024 Hepatic function panel Leathanasim Mckeon CERTIFIED RECREATIONAL THERAPIST-OFFICE CORRESPONDENT Work Phone: Start: 10-21-2024 Assay of magnesium Rosier angie Mckeon CERTIFIED RECREATIONAL THERAPIST-OFFICE CORRESPONDENT Work Phone: Start: 10-21-2024 Hepatic function panel Leathanasim Mckeon CERTIFIED RECREATIONAL THERAPIST-OFFICE CORRESPONDENT Work Phone: Start: 10-20-2024 Assay of lactate Larry Myers DO Work Phone: Start: 10-20-2024 Hepatic function panel Leathanasim Mckeon CERTIFIED RECREATIONAL THERAPIST-OFFICE CORRESPONDENT Work Phone: Start: 10-20-2024 Ecg routine ecg w/le ast 12 lds trcg only w/o i&r Leatha Mckeon CERTIFIED RECREATIONAL THERAPIST-OFFICE CORRESPONDENT Work Phone: Start: 10-18-2024 Smr prim src [...] - S polly or Plasma Mallika Quiles [facility] Work Phone: Start: 09-30-2024 Assay of lactate [...] Radiologic exam ches t single view King Schaffer DO Work Phone: Start: 08-23-2024 Ct abdomen [...] 08-05-2024 Assay of troponin quantitative Angel Luis Rinku CERTIFIED RECREATIONAL THERAPIST - OFFICE CORRESPONDENT Work Phone: Start: 08-05-2024 Ecg routine ecg w/le ast 12 lds trcg only w/o i&r Ashtyn Miles CERTIFIED RECREATIONAL THERAPIST - OFFICE CORRESPONDENT Work Phone: Start: 08-05-2024 Basic metabolic pane l calcium total Angel Luis Mejia CERTIFIED RECREATIONAL THERAPIST - OFFICE CORRESPONDENT Work Phone: Start: 08-05-2024 Radiologic exam ches t 2 views Angel Luis Rinku CERTIFIED RECREATIONAL THERAPIST - OFFICE CORRESPONDENT Work Phone: Start: 08-04-2024 Ecg routine ecg w/le ast 12 lds trcg only w/o i&r Jamal Dia MD Work Phone: Start: 08-04-2024 Follow-up visit [facility] Start: 07-30-2024 Basic metabolic pane l calcium total Lilibeth Darya CERTIFIED RECREATIONAL THERAPIST - OFFICE CORRESPONDENT Work Phone: Start: 07-29-2024 Comprehensive metabo lic panel Berenice Rosenthal CERTIFIED RECREATIONAL THERAPIST - OFFICE CORRESPONDENT Work Phone: Start: 07-28-2024 Comprehensive metabo lic panel Berenice Rosenthal CERTIFIED RECREATIONAL THERAPIST - OFFICE CORRESPONDENT Work Phone: Start: 07-27-2024 Comprehensive metabo lic panel Berenice Rosenthal CERTIFIED RECREATIONAL THERAPIST - OFFICE CORRESPONDENT Work Phone: Start: 07-26-2024 Comprehensive metabo lic panel Bereince Rosenthal CERTIFIED RECREATIONAL THERAPIST - OFFICE CORRESPONDENT Work Phone: Start: 07-24-2024 End: 07-24-2024 Basic metabolic panel calcium total Rafa Samuel MD Work Phone: Start: 07-23-2024 Assay of thyroid stimulating hormone tsh Rafa Samuel MD Work Phone: Start: 07-23-2024 Basic metabolic pane l calcium total Dayna Alvarenga PA-C Work Phone: Start: 07-23-2024 Radiologic exam ches t single view Dayna Alvarenga PA-C Work Phone: Start: 07-23-2024 Ecg routine ecg w/le ast 12 lds trcg only w/o i&r Bertha Pichardo DO Work Phone: Start: 07-21-2024 Follow-up visit [facility] Start: 07-16-2024 Radiologic exam abdo men 1 view Lilibeth Huber CERTIFIED RECREATIONAL THERAPIST - OFFICE CORRESPONDENT Work Phone: Start: 07-16-2024 Comprehensive metabo lic panel Lilibeth Huber CERTIFIED RECREATIONAL THERAPIST - OFFICE CORRESPONDENT Work Phone: Start: 07-15-2024 Basic metabolic pane l calcium total Rafa Samuel MD Work Phone: Start: 07-14-2024 Comprehensive metabo lic panel Rafa Samuel MD Work Phone: Start: 07-13-2024 Ecg routine ecg w/le ast 12 lds trcg only w/o i&r Sherri Jeter MD Work Phone: Start: 07-13-2024 Basic metabolic pane l calcium total Rafa Samuel MD Work Phone: Start: 07-12-2024 Basic metabolic pane [...] Radiologic exam ches t single view Maritza Jones DO Work Phone: Start: 07-11-2024 Ecg routine ecg w/le ast 12 lds trcg only w/o i&r Maritza Jones DO Work Phone: Start: 07-07-2024 Ecg routine ecg w/le ast 12 lds w/i&r Alex Zhang MD Work Phone: Start: 07-07-2024 Follow-up visit [facility] Start: 07-04-2024 End: 07-04-2024 Basic metabolic panel calcium total Roopa Brittney DO Work Phone: Start: 07-04-2024 Comprehensive metabo lic panel [employer] Shantal DO Work Phone: Start: 07-03-2024 Creatinine other source [employer]Ward Shantal DO Work Phone: Start: 07-03-2024 Assay of [...] 12 lds trcg only w/o i&r Kishore Mudrakola DO Work Phone: Start: 07-01-2024 Ecg routine ecg w/le ast 12 lds w/i&r Alex Zhang MD Work Phone: Start: 07-01-2024 Follow-up visit [facility] Start: 06-20-2024 Basic metabolic pane l calcium total Sergei Braxtongt DO Work Phone: Start: 06-19-2024 Radiologic exam ches t 2 views Angel Luis Lassiter MD Work Phone: Start: 06-18-2024 Basic metabolic pane l calcium total Serg Celaya MD Work Phone: Start: 06-17-2024 Ecg routine ecg w/le ast 12 lds trcg only w/o i&r Sherri Jeter MD Work Phone: Start: 06-17-2024 Cardiac catheterizat ion study Gaby Marcano [facility] Work Phone: Start: 06-17-2024 End: 06-17-2024 POCT O2 SATURATION Sergei Mcguire DO Work Phone: Start: 06-16-2024 Basic metabolic pane l calcium total Maritza Corona Gagantalita [facility] Work Phone: Start: 06-15-2024 Echo tthrc r-t 2d w/wom-mode compl spec&colr d Angel Luis Morales MD Work Phone: Start: 06-15-2024 Chloride urine Maritza Linn [facility] Work Phone: Start: 06-15-2024 Urinalysis complete panel - Urine Maritza Linn [facility] Work Phone: Start: 06-15-2024 Urine albumin quantitative Maritza Linn [facility] Work Phone: Start: 06-15-2024 Urnls dip stick/tabl et rgnt auto w/o microscopy Maritza Linn [facility] Work Phone: Start: 06-15-2024 Comprehensive metabo lic [...] Phone: Start: 06-13-2024 Comprehensive metabo lic panel [employer] Work Phone: Start: 06-13-2024 Radiologic exam ches t single view [employer] Work Phone: Start: 06-13-2024 Ecg routine ecg w/le ast 12 lds trcg only w/o i&r [employer] Work Phone: Start: 06-08-2024 Basic metabolic pane l calcium total Morgan Ulloa CERTIFIED RECREATIONAL THERAPIST [employer] Work Phone: Start: 06-08-2024 Ecg routine ecg w/le ast 12 lds trcg only w/o i&r Sergei Astudillo MD Work Phone: Start: 06-08-2024 Follow-up visit [facility] Start: 06-01-2024 Comprehensive metabo lic panel Mary Ellen Brito MD Work Phone: Start: 06-01-2024 Mri abdomen w/o cont rast material Anna LANGSTON Work Phone: Start: 05-31-2024 Us abdominal real ti me w/image documentation Lizzette Burger CERTIFIED RECREATIONAL THERAPIST - OFFICE CORRESPONDENT Work Phone: Start: 05-30-2024 End: 05-30-2024 Comprehensive metabolic panel Mary Ellen Brito MD Work Phone: Start: 05-29-2024 Us retroperitoneal r eal time w/image complete Maritza Linn CERTIFIED RECREATIONAL THERAPIST - OFFICE CORRESPONDENT Work Phone: Start: 05-29-2024 Comprehensive metabo lic panel Mary Ellen Brito MD Work Phone: Start: 05-28-2024 Chloride urine Maritza Linn CERTIFIED RECREATIONAL THERAPIST [facility] Work Phone: Start: 05-28-2024 Urinalysis complete panel - Urine Maritza Linn [facility] Work Phone: Start: 05-28-2024 Urnls dip stick/tabl et reagent auto microscopy Maritza Linn [facility] Work Phone: Start: 05-28-2024 Basic metabolic pane l calcium total Maritza Linn [facility] Work Phone: Start: 05-28-2024 Radiologic exam ches [...] emsa stain bct fungi/cell Thapasya S Rein CERTIFIED RECREATIONAL THERAPIST - [facility] Work Phone: Start: 04-28-2024 Ecg routine ecg w/le ast 12 lds trcg only w/o i&r Alonzo Aguilar MD Work Phone: Start: 04-28-2024 Assay of troponin quantitative Thapasya S Rein CERTIFIED RECREATIONAL THERAPIST - OFFICE CORRESPONDENT Work Phone: Start: 04-28-2024 Iaadiadoo not otherw ise specified Thapasya S Rein CERTIFIED RECREATIONAL THERAPIST - OFFICE CORRESPONDENT Work Phone: Start: 04-28-2024 Assay of troponin [...] - Nasopharynx by DEENA with non-probe detection Thapasya S Rein CERTIFIED RECREATIONAL THERAPIST - OFFICE CORRESPONDENT Work Phone: Start: 04-28-2024 SARS-COV-2, FLU A/B, [...] for Adults (1 - 1-dose 75+ series) [facility] Start: 2053 [facility] Start: 2038 RSV Immunization aged 60 or older (1 - 1-dose 60+ series) RSV Immunization aged 60 or older (1 - 1-dose 60+ series) [facility] Start: 10-01-2029 Lipid panel [facility] Start: 08-27-2029 Lipid panel [facility] Start: 06-14-2029 Lipid panel [facility] Start: 02-28-2029 Lipid panel Lipid Panel [facility] Start: 02-14-2028 Shingles (RZV) Vaccine (1 of 2) Shingles (RZV) Vaccine ([facility] of 2) [facility] [facility] Start: 02-14-2028 Zoster Vaccines (1 of 2) Zoster Vaccines (1 of 2) [facility] Start: 02-14-2028 [facility] Start: 01-21-2028 Diabetes Screening Diabetes Screening [facility] Start: 09-10-2027 Diabetes Screening Diabetes Screening [facility] Start: 03-01-2027 Diabetes mellitus screening Diabetes Screening [facility] Start: 01-20-2026 Complete blood count Hemoglobin/Hematocrit [facility] Start: 01-20-2026 Creatinine measurement Serum Creatinine [facility] Start: 10-25-2025 Creatinine measurement Basic Metabolic Panel [facility] Start: 10-21-2025 Creatinine measurement Basic Metabolic Panel [facility] Start: 10-06-2025 Creatinine measurement Basic Metabolic Panel [facility] Start: 10-01-2025 Hemoglobin A1c measurement Hemoglobin A1C [facility] Start: 08-25-2025 Creatinine measurement Creatinine Level [facility] Start: 08-25-2025 Potassium measurement Potassium Level [facility] Start: 08-20-2025 Creatinine measurement [facility] Start: 08-20-2025 Potassium measurement [facility] Start: 08-19-2025 Creatinine measurement Creatinine Level [facility] Start: 08-19-2025 Potassium measurement Potassium Level [facility] Start: 08-12-2025 Creatinine measurement Creatinine Level [facility] Start: 08-12-2025 Potassium measurement Potassium Level [facility] Start: 08-11-2025 Echocardiography Echocardiogram [facility] Start: 08-11-2025 [facility] Start: 08-05-2025 Creatinine measurement Creatinine Level [facility] Start: 08-05-2025 Potassium measurement Potassium Level [facility] Start: 07-30-2025 Creatinine measurement Creatinine Level [facility] Start: 07-30-2025 Potassium measurement Potassium Level [facility] Start: 07-21-2025 Creatinine measurement Creatinine Level [facility] Start: 07-21-2025 Potassium measurement Potassium Level [facility] Start: 07-16-2025 Creatinine measurement Creatinine Level [facility] Start: 07-16-2025 Potassium measurement Potassium Level [facility] Start: 07-04-2025 Creatinine measurement Creatinine Level [facility] Start: 07-04-2025 Potassium measurement Potassium Level [facility] Start: 06-20-2025 Creatinine measurement Creatinine Level [facility] Start: 06-20-2025 Potassium measurement Potassium Level [facility] Start: 06-15-2025 Echocardiography Echocardiogram [facility] Start: 06-08-2025 Creatinine measurement Creatinine Level [facility] Start: 06-08-2025 Potassium measurement Potassium Level [facility] Start: 06-01-2025 Creatinine measurement Creatinine Level [facility] Start: 06-01-2025 Potassium measurement Potassium Level [facility] Start: 05-30-2025 Creatinine measurement Creatinine Level [facility] Start: 05-30-2025 Potassium measurement Potassium Level [facility] Start: 04-28-2025 Creatinine measurement Creatinine Level [facility] Start: 04-28-2025 Potassium measurement Potassium Level [facility] Start: 03-30-2025 Influenza vaccination Influenza Vaccine (#1) [facility] Start: 03-07-2025 Creatinine measurement Creatinine Level [facility] Start: 03-07-2025 Potassium measurement Potassium Level [facility] Start: 03-05-2025 Creatinine measurement Creatinine Level [facility] Start: 03-05-2025 Potassium measurement Potassium Level [facility] Start: 03-04-2025 Liver Imaging (Hepatocellular Carcinoma Screening) Liver Imaging (Hepatocellular Carcinoma Screening) [facility] Start: 03-01-2025 Creatinine measurement Creatinine Level [facility] Start: 03-01-2025 Diabetes mellitus screening [facility] Start: 03-01-2025 Potassium measurement Potassium Level [facility] Start: 02-28-2025 Creatinine measurement Creatinine Level [facility] Start: 02-28-2025 Echocardiography Echocardiogram [facility] Start: 02-28-2025 Influenza vaccination Influenza Vaccine (#1) [facility] Start: 02-28-2025 Potassium measurement Potassium Level [facility] Start: 02-10-2025 Evaluation of diagnostic study results [facility] Start: 01-29-2025 [facility] Start: 01-29-2025 Computed tomography of abdomen and pelvis with intravenous contrast Abdomen/Pelvis W IV Cont ONLY [facility] Start: 01-29-2025 CT of chest without contrast Chest without Contrast [facility] Start: 01-29-2025 [facility] Start: 01-10-2025 Patient discharge [facility] Start: 01-08-2025 Palliative care [facility] Start: 01-07-2025 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 to hydraulic corrugating machine operator [facility] Start: 01-05-2025 Prothrombin time [facility] Start: 01-04-2025 Following clinical pathway protocol [facility] Start: 01-04-2025 Ambulation without limitation [facility] Start: 01-04-2025 Assessment of risk of venous thromboembolism [facility] Start: 01-04-2025 Elevation of affected extremity [facility] Start: 01-04-2025 Insertion of catheter into peripheral vein [facility] Start: 01-04-2025 Measuring intake and output [facility] Start: 01-04-2025 Notification of physician [facility] Start: 01-04-2025 Patient education [facility] Start: 01-04-2025 Patient referral to dietitian [facility] Start: 01-04-2025 Providing care according to standard [facility] Start: 01-04-2025 [facility] Start: 01-04-2025 Verification routine [facility] Start: 01-04-2025 Admission procedure [facility] Start: 01-04-2025 [facility] Start: 01-04-2025 Patient referral to dietitian [facility] Start: 11-17-2024 End: 11-17-2024 Patient encounter procedure 11/17/2024 2:20 PM EDT Office Visit [facility] Liver [address] [place] [address] Disha Brenner MD [address] [place] [id number] [facility] Start: 11-12-2024 End: 11-12-2024 Patient encounter procedure 11/12/2024 8:40 AM EDT Office Visit [facility] Cardiology [address] [place] [id number] Jamal Geronimo MD [address] [place], [place] [id number] [facility] Start: 11-05-2024 End: 11-05-2024 Patient encounter procedure 11/05/2024 8:40 AM EDT Office Visit [facility] Cardiology [address] [place] [address] Jamal Geronimo MD [address] [place] [id number] [facility] Start: 10-28-2024 End: 04-27-2025 Assay of magnesium MAGNESIUM Lab Routine Acute kidney injury superimposed on stage 3b chronic kidney disease [N17.9, N18.32] Expected: 10/28/2024, Expires: 04/27/2025 [facility] Comment on above: Expected: 10/28/2024, Expires: Start: 10-28-2024 End: 04-27-2025 Basic metabolic 2000 panel - Serum or Plasma BASIC METABOLIC PANEL Lab Routine Acute kidney injury superimposed on stage 3b chronic kidney disease [N17.9, N18.32] Expected: 10/28/2024, Expires: 04/27/2025 [facility] Comment on above: Expected: 10/28/2024, Expires: Start: 10-28-2024 End: 04-27-2025 CBC W Auto Differential panel - Blood COMPLETE BLOOD COUNT W/DIFF Lab Routine SOB (shortness of breath) Expected: 10/28/2024, Expires: 04/27/2025 [facility] Comment on above: Expected: 10/28/2024, Expires: Start: 10-28-2024 End: 04-27-2025 Hepatic function panel HEPATIC FUNCTION PANEL Lab Routine Elevated liver enzymes Expected: 10/28/2024, Expires: 04/27/2025 [facility] Comment on above: Expected: 10/28/2024, Expires: Start: 10-18-2024 End: 10-18-2024 Patient encounter procedure 10/18/2024 10:00 AM EDT Office Visit [facility] Nephrology [address] [place] [address] Cristy Luque, CERTIFIED RECREATIONAL THERAPIST-OFFICE CORRESPONDENT [address] [place] [address] [facility] Start: 09-10-2024 End: 09-10-2024 Patient encounter procedure 09/10/2024 11:00 AM EDT Office Visit [facility] Cardiology - [place] [address] [facility] [address] [place] [phone] Morgan Ulloa, CERTIFIED RECREATIONAL THERAPIST - OFFICE CORRESPONDENT [address] [facility], [address] [place] [address] [facility] - [place] Start: 09-02-2024 End: 09-02-2024 ambulatory [facility] - [place] Start: 09-02-2024 End: 09-02-2024 Patient encounter procedure 09/02/2024 11:30 AM EST Office Visit [facility] [place] [address] [place] [phone] Sergei Astudillo MD [address] [place] [address] [facility] [place] Start: 08-30-2024 End: 07-01-2026 US Heart Transthoracic Transthoracic echocardiogram (TTE) limited with contrast, bubble, strain, and 3D PRN CV Echocardiography Routine Chronic systolic heart failure (HCC) Expected: 08/30/2024 (Approximate), Expires: 07/01/2026 [employer] Work Phone: Comment on above: Expected: 08/30/2024 (Approximate), Expi res: 07/01/2026 Start: 08-30-2024 End: 08-30-2024 Patient encounter procedure 08/30/2024 11:00 AM EST Appointment [facility] [address] [place] [address] [facility] Start: 08-24-2024 End: 08-24-2024 Patient encounter procedure 08/24/2024 9:00 AM EST Office Visit [facility] [employer] Cardiology - [place] [address] [place] [phone] Maritza Ambrosio PA-C [address] [place] [address] [facility] [place] Start: 08-18-2024 End: 08-11-2025 Basic metabolic 1998 panel - Serum or Plasma [employer] Work Phone: Start: 08-18-2024 End: 08-18-2024 Patient encounter procedure 08/18/2024 1:00 PM EST [facility] [place] [address] [place] [phone] Maritza Ambrosio PA-C [address] [place] [address] [facility] [place] Start: 08-11-2024 End: 08-04-2025 Basic metabolic 1998 panel - Serum or Plasma Basic metabolic panel Lab Routine HFrEF (heart failure with reduced ejection fraction) (HCC) Expected: 08/11/2024 (Approximate), Expires: 08/04/2025 [employer] Comment on above: Expected: 08/11/2024 (Approximate), Expi res: 08/04/2025 Start: 08-06-2024 End: 07-30-2025 Comprehensive metabolic 1998 panel - Serum or Plasma Comprehensive metabolic panel Lab Routine SCHUYLER (acute kidney injury) (HCC) Expected: 08/06/2024 (Approximate), Expires: 07/30/2025 [facility] [employer] [facility] Work Phone: Comment on above: Expected: 08/06/2024 (Approximate), Expi res: 07/30/2025 Start: 08-04-2024 End: 08-04-2025 Basic metabolic 1998 panel - Serum or Plasma Basic metabolic panel Lab Routine HFrEF (heart failure with reduced ejection fraction) (HCC) Expected: 08/04/2024 (Approximate), Expires: 08/04/2025 [facility] [employer] Work Phone: Comment on above: Expected: 08/04/2024 (Approximate), Expi res: 08/04/2025 Start: 08-04-2024 End: 08-04-2024 Patient encounter procedure 08/04/2024 10:15 AM EST Office Visit [facility] [address] [place] [phone] Sergei Astudillo MD [address] [place], [place] [phone] [facility] Start: 08-01-2024 End: 07-01-2025 Basic metabolic 1998 panel - Serum or Plasma Basic metabolic panel Lab Routine Chronic systolic heart failure (HCC) Expected: 08/01/2024 (Approximate), Expires: 07/01/2025 [facility] Comment on above: Expected: 08/01/2024 (Approximate), Expi res: 07/01/2025 Start: 07-29-2024 End: 07-29-2024 Patient encounter procedure 07/29/2024 2:30 PM EST Office Visit [facility] [address] [facility] [address] [place] [phone] Morgan Ulloa, CERTIFIED RECREATIONAL THERAPIST - OFFICE CORRESPONDENT [address] [facility], [address] [place] [address] [facility] Start: 07-28-2024 End: 07-21-2025 Basic metabolic 1998 panel - Serum or Plasma Basic metabolic panel Lab Routine HFrEF (heart failure with reduced ejection fraction) (HCC) Expected: 07/28/2024 (Approximate), Expires: 07/21/2025 [facility] Comment on above: Expected: 07/28/2024 (Approximate), Expi res: 07/21/2025 Start: 07-28-2024 End: 07-28-2024 Patient encounter procedure 07/28/2024 9:30 AM EST Office Visit [facility] [address] [place] [phone] Sergei Astudillo MD [address] [place], [place] [phone] [facility] Start: 07-23-2024 End: 07-23-2024 Patient encounter procedure 07/23/2024 2:30 PM EST Office Visit [facility] [address] [facility] [address] [place] [phone] Morgan Ulloa CERTIFIED RECREATIONAL THERAPIST - OFFICE CORRESPONDENT [address] [facility], [address] [phone] [facility] Start: 07-21-2024 End: 07-21-2025 Basic metabolic 1998 panel - Serum or Plasma Basic metabolic panel Lab Routine HFrEF (heart failure with reduced ejection fraction) (HCC) Expected: 07/21/2024 (Approximate), Expires: 07/21/2025 [facility] Work Phone: Comment on above: Expected: 07/21/2024 (Approximate), Expi res: 07/21/2025 Start: 07-21-2024 End: 07-21-2024 Patient encounter procedure 07/21/2024 9:30 AM EST Office Visit [facility] [address] [place] [phone] Morgan Ulloa, CERTIFIED RECREATIONAL THERAPIST - OFFICE CORRESPONDENT [address] [facility], [address] [place] [address] [facility] Start: 07-19-2024 End: 07-16-2025 Basic metabolic 1998 panel - Serum or Plasma Basic metabolic panel Lab Routine Chronic systolic heart failure (HCC) Expected: 07/19/2024 (Approximate), Expires: 07/16/2025 [facility] [employer] Work Phone: Comment on above: Expected: 07/19/2024 (Approximate), Expi res: 07/16/2025 Start: 07-14-2024 End: 07-07-2025 Basic metabolic 1998 panel - Serum or Plasma Basic metabolic panel Lab Routine Acute systolic heart failure (HCC) Expected: 07/14/2024 (Approximate), Expires: 07/07/2025 [facility] Work Phone: Comment on above: Expected: 07/14/2024 (Approximate), Expi res: 07/07/2025 Start: 07-07-2024 End: 07-07-2024 Patient encounter procedure 07/07/2024 1:00 PM EST Office Visit [facility] [address] [phone] Alex Zhang MD [address] [address] [facility] Start: 07-01-2024 End: 07-01-2024 Patient encounter procedure 07/01/2024 10:45 AM EST Office Visit [facility] [address] [phone] Alex Zhang MD [address] [address] [facility] Start: 06-16-2024 End: 06-10-2025 Basic metabolic 1997 panel - Serum or Plasma Basic metabolic panel Lab Routine Congestive heart failure, unspecified HF chronicity, unspecified heart failure type (HCC) Expected: 06/16/2024 (Approximate), Expires: 06/10/2025 [employer] Work Phone: Comment on above: Expected: 06/16/2024 (Approximate), Expi res: 06/10/2025 Start: 06-15-2024 End: 06-08-2025 Hepatic function 2000 panel - Serum or Plasma Hepatic function panel Lab Routine Congestive heart failure, unspecified HF chronicity, unspecified heart failure type (HCC) Expected: 06/15/2024 (Approximate), Expires: 06/08/2025 [employer] Work Phone: Comment on above: Expected: 06/15/2024 (Approximate), Expi res: 06/08/2025 Start: 06-14-2024 End: 06-14-2024 Patient encounter procedure 06/14/2024 3:15 PM EST Office Visit [facility] [address] [facility] [address] [place] [phone] Dudley Killian MD [address] [place] [address] [address] [place] [address] [facility] Start: 06-08-2024 End: 06-01-2025 CBC W Auto Differential panel - Blood CBC auto differential Lab Routine HFrEF (heart failure with reduced ejection fraction) (HCC) Expected: 06/08/2024 (Approximate), Expires: 06/01/2025 [facility] [employer] Comment on above: Expected: 06/08/2024 (Approximate), Expi res: 06/01/2025 Start: 06-08-2024 End: 06-01-2025 Comprehensive metabolic 1998 panel - Serum or Plasma Comprehensive metabolic panel Lab Routine HFrEF (heart failure with reduced ejection fraction) (HCC) Expected: 06/08/2024 (Approximate), Expires: 06/01/2025 [employer] Work Phone: Comment on above: Expected: 06/08/2024 (Approximate), Expi res: 06/01/2025 Start: 06-08-2024 End: 06-08-2024 Patient encounter procedure 06/08/2024 9:30 AM EST Office Visit [facility] [address] [facility] [address] [place] [address] Morgan Ulloa, CERTIFIED RECREATIONAL THERAPIST - OFFICE CORRESPONDENT [address] [place] [address] [facility] Start: 04-05-2024 End: 04-05-2024 Patient encounter procedure [facility] Start: 03-11-2024 End: 03-11-2024 Patient encounter procedure 03/11/2024 10:00 AM EDT Office Visit [facility] Cardiology [address] [facility] [address] [place] [phone] Gaby Marcano CERTIFIED RECREATIONAL THERAPIST - OFFICE CORRESPONDENT [address] [facility] [address] [place] [address] [facility] Start: 02-29-2024 COVID-19 Vaccine ( season) COVID-19 Vaccine ( season) [facility] Start: 02-29-2024 COVID-19 Vaccine ( season) COVID-19 Vaccine ( season) [facility] Start: 02-29-2024 Influenza vaccination Influenza Vaccine (#1) [facility] Start: 02-29-2024 [facility] Start: 2023 Screening for malignant neoplasm of colon [facility] Start: 1997 DTaP/Tdap/Td Vaccines (1 - Tdap) DTaP/Tdap/Td Vaccines (1 - Tdap) [facility] Start: 1997 Hepatitis A (HAV) Vaccine (optional start 19+ years) Hepatitis A (HAV) Vaccine (optional start 19+ years) [facility] Start: 1997 Hepatitis A Vaccine (1 of 2 - Risk 2-dose series) Hepatitis A Vaccine (1 of 2 - Risk 2-dose series) [facility] Start: 1997 Hepatitis B vaccination Hepatitis B (HBV) Vaccine (1 of 3 - 19+ 3-dose series) [facility] Start: 1997 Hepatitis B Vaccine (1 of 3 - 19+ 3-dose series) Hepatitis B Vaccine (1 of 3 - 19+ 3-dose series) [facility] Start: 1997 Hepatitis B Vaccines (1 of 3 - 19+ 3-dose series) Hepatitis B Vaccines (1 of 3 - 19+ 3-dose series) [facility] Start: 1997 Pneumococcal vaccination [facility] Start: 1997 Pneumococcal Vaccine: Pediatrics (0 to 5 Years) and At-Risk Patients (6 to 49 Years) (1 of 2 - PCV) Pneumococcal Vaccine: Pediatrics (0 to 5 Years) and At-Risk Patients (6 to 49 Years) (1 of 2 - PCV) [facility] Start: 1997 Urine microalbumin profile DTaP,Tdap,Td Vaccine (1 - Tdap) [facility] Start: 1997 [facility] Start: 02-14-1996 Annual PCP Team Chronic Disease Visit Annual PCP Team Chronic Disease Visit [facility] Start: 02-14-1996 Anxiety Screening Anxiety Screening [facility] Start: 02-14-1996 Depression Screening Depression Screening [facility] Start: 02-14-1996 Diabetes mellitus screening Diabetes Screening [facility] Start: 02-14-1996 Hepatitis C screening [facility] Start: 02-14-1996 HIV screening HIV Screening [facility] Start: 02-14-1996 Tdap Booster Tdap Booster [facility] Start: 1990 Depression Screening Depression Screening [facility] Start: 1990 [facility] Start: 02-14-1984 Pneumococcal Vaccine: Pediatrics (0 to 5 Years) and At-Risk Patients (6 to 64 Years) (1 of 2 - PCV) Pneumococcal Vaccine: Pediatrics (0 to 5 Years) and At-Risk Patients (6 to 64 Years) (1 of 2 - PCV) [facility] Start: 1979 MMR Vaccines (1 of 1 - Standard series) MMR Vaccines (1 of 1 - Standard series) [facility] Start: 1979 [facility] Start: 1978 Echocardiography Echocardiogram [facility] Start: 1978 Fluid sample AFP level Alpha Fetoprotein (Hepatocellular Carcinoma Screening) [facility] Start: 1978 HIV screening [facility] Start: 1978 Lipid panel Lipid Panel [facility] Start: 1978 Prostate specific antigen measurement Prostate Cancer Screening (shared decision making) [facility] Start: 1978 Screening for malignant neoplasm of colon [facility] Alanine aminotransfe rase [Enzymatic activity/volume] in Serum or Plasma [facility] Albumin [Mass/volume ] in Serum or Plasma [facility] Alkaline phosphatase [Enzymatic activity/volume] in Serum or Plasma [facility] Anion gap in Serum o r Plasma [facility] Assay of magnesium MAGNESIUM Lab STAT Daily until discontinued starting 10/01/2024, 4 completed [employer] Comment on above: Daily until discontinued starting 2024, 4 completed Assay of magnesium MAGNESIUM Lab STAT Daily until discontinued starting 10/18/2024, 4 completed [employer] Comment on above: Daily until discontinued starting 2024, 4 completed End: 10-26-2024 Assay of magnesium MAGNESIUM Lab Routine Morning Blood Draw for 1 Occurrences starting 10/26/2024 until 10/26/2024 [facility] Comment on above: Morning Blood Draw for 1 Occurrences sta rting 10/26/2024 until 10/26/2024 Assay of phosphorus inorganic PHOSPHORUS Lab Routine Daily until discontinued starting 10/01/2024, 4 completed [employer] Work Phone: Comment on above: Daily until discontinued starting 2024, 4 completed End: 04-28-2024 Bacteria identified in Lower respiratory specimen by Aerobe culture Respiratory culture and Stain Microbiology Routine Once (Lab) for 1 Occurrences starting 04/28/2024 until 04/28/2024 [facility] [facility] Comment on above: Once (Lab) for 1 Occurrences starting until 04/28/2024 Basic metabolic 2000 panel - Serum or Plasma BASIC METABOLIC PANEL Lab STAT Daily until discontinued starting 10/01/2024, 4 completed [employer] Work Phone: Comment on above: Daily until discontinued starting 2024, 4 completed Basic metabolic 2000 panel - Serum or Plasma BASIC METABOLIC PANEL Lab STAT Daily until discontinued starting 10/18/2024, 4 completed [employer] Comment on above: Daily until discontinued starting 2024, 4 completed End: 10-26-2024 Basic metabolic 2000 panel - Serum or Plasma BASIC METABOLIC PANEL Lab Routine Morning Blood Draw for 1 Occurrences starting 10/26/2024 until 10/26/2024 [facility] Comment on above: Morning Blood Draw for 1 Occurrences sta rting 10/26/2024 until 10/26/2024 Bilirubin, total measurement [facility] End: 10-02-2024 Blood count complete auto&auto difrntl wbc CBC WITH DIFFERENTIAL Lab Only STAT Once for 1 Occurrences starting 10/02/2024 until 10/02/2024 [facility] Comment on above: Once for 1 Occurrences starting 10/03/19 until 10/02/2024 End: 10-04-2024 Blood count complete auto&auto difrntl wbc CBC WITH DIFFERENTIAL Lab Only STAT Once for 1 Occurrences starting 10/04/2024 until 10/04/2024 [facility] Comment on above: Once for 1 Occurrences starting 10/05/19 until 10/04/2024 End: 10-05-2024 Blood count complete auto&auto difrntl wbc CBC WITH DIFFERENTIAL Lab Only STAT Once for 1 Occurrences starting 10/05/2024 until 10/05/2024 [facility] Comment on above: Once for 1 Occurrences starting 10/06/19 until 10/05/2024 End: 10-19-2024 Blood count complete auto&auto difrntl wbc CBC WITH DIFFERENTIAL Lab Only STAT Once for 1 Occurrences starting 10/19/2024 until 10/19/2024 [facility]: Comment on above: Once for 1 Occurrences starting 10/20/19 until 10/19/2024 End: 10-22-2024 Blood count complete auto&auto difrntl wbc CBC WITH DIFFERENTIAL Lab Only STAT Once for 1 Occurrences starting 10/22/2024 until 10/22/2024 [facility] Comment on above: Once for 1 Occurrences starting 10/23/19 until 10/22/2024 End: 10-23-2024 Blood count complete auto&auto difrntl wbc CBC WITH DIFFERENTIAL Lab Only STAT Once for 1 Occurrences starting 10/23/2024 until 10/23/2024 [facility] Comment on above: Once for 1 Occurrences starting 10/24/19 until 10/23/2024 End: 10-24-2024 Blood count complete auto&auto difrntl wbc CBC WITH DIFFERENTIAL Lab Only STAT Once for 1 Occurrences starting 10/24/2024 until 10/24/2024 [facility] Comment on above: Once for 1 [...] for 1 Occurrences starting 10/26/2024 until 10/26/2024 [facility] Comment on above: Once for 1 Occurrences starting 10/27/19 until 10/26/2024 BUN/Creatinine ratio [facility] Calcium [Mass/volume ] in Serum or Plasma [facility] Carbon dioxide, tota l [Moles/volume] in Central venous blood [facility] CBC W Auto Different ial panel - Blood COMPLETE BLOOD COUNT W/DIFF Lab STAT Daily until discontinued starting 10/01/2024, 3 completed [facility] Comment on above: Daily until discontinued starting 2024, 3 completed CBC W Auto Different ial panel - Blood COMPLETE BLOOD COUNT W/DIFF Lab STAT Daily until discontinued starting 10/18/2024, 4 completed [facility] Comment on above: Daily until discontinued starting 2024, 4 completed End: 10-26-2024 CBC W Auto Differential panel - Blood COMPLETE BLOOD COUNT W/DIFF Lab Routine Morning Blood Draw for 1 Occurrences starting 10/26/2024 until 10/26/2024 [employer] Work Phone: Comment on above: Morning Blood Draw for 1 Occurrences sta rting 10/26/2024 until 10/26/2024 Cholesterol [Mass/vo lume] in Serum or Plasma [facility] Cholesterol in HDL [Mass/volume] in Serum or Plasma [facility] End: 08-25-2024 COVID-19, Flu A/B, and RSV Combo COVID-19, Flu A/B, and RSV Combo Microbiology STAT Once (Lab) for 1 Occurrences starting 08/25/2024 until 08/25/2024 [employer] Work Phone: Comment on above: Once (Lab) for 1 Occurrences starting until 08/25/2024 Creatinine [Mass/vol ume] in Serum or Plasma [facility] End: 10-17-2024 Cul prsmptv pthgnc organism scrn w/colony estimj MRSA SCREEN Microbiology STAT One time for 1 Occurrences starting 10/17/2024 until 10/17/2024 [employer] Work Phone: Comment on above: One time for 1 Occurrences starting 09/29 until 10/17/2024 End: 10-18-2024 Culture bacterial blood aerobic w/id isolates BLOOD CULTURE Microbiology Routine One time for 1 Occurrences starting 10/18/2024 until 10/18/2024 [employer] Comment on above: One time for 1 Occurrences starting 09/29 until 10/18/2024 ECG 12 lead ECG 12 lead CV E CG STAT 04/28/2024 10:07 AM EDT [employer] Work Phone: ECG 12 lead ECG 12 lead CV E CG Routine Congestive heart failure, unspecified HF chronicity, unspecified heart failure type (HCC) 06/08/2024 10:32 AM [employer] Work Phone: ECG 12 lead ECG 12 lead CV E CG STAT 08/05/2024 7:06 AM [employer] Work Phone: ECG 12 lead ECG 12 lead CV E CG STAT 08/25/2024 2:29 AM [employer] End: 10-20-2024 Ecg routine ecg w/least 12 lds trcg only w/o i&r EKG 12 LEAD - PERFORM MUSE Routine Daily for 3 Days starting 10/18/2024 until 10/20/2024, 1 completed [employer] Comment on above: Daily for 3 Days starting 10/18/2024 unt il 10/20/2024, 1 completed Ecg routine ecg w/le ast 12 lds trcg only w/o i&r EKG 12 LEAD - PERFORM MUSE Routine PRN until discontinued starting 10/18/2024 [employer] Comment on above: PRN until discontinued starting 10/19/19 25 Erythrocyte mean corpuscular volume determination [facility] Evaluation of diagno stic study results [facility] Glucose [Mass/volume ] in Serum or Plasma [facility] Hematocrit [Volume Fraction] of Blood [facility] Hemoglobin [Mass/vol ume] in Blood [facility] Hepatic function panel HEPATIC F UNCTION PANEL Lab Routine Daily until discontinued starting 10/19/2024, 3 completed [employer] Comment on above: Daily until discontinued starting 2024, 3 completed End: 09-30-2024 Iaad ia mult step method nos each organism LEGIONELLA ANTIGEN, URINE Microbiology STAT One time for 1 Occurrences starting 09/30/2024 until 09/30/2024 [employer] Work Phone: Comment on above: One time for 1 Occurrences starting 08/2024 until 09/30/2024 INR in Blood by Coagulation assay [facility] LAB COLOGUARD COLON CANCER [facility]CREEN [facility] Routine Screening for colorectal cancer Ordered: 12/02/2024 [employer] Work Phone: Comment on above: Ordered: 12/02/2024 Leukocytes [#/volume ] in Blood [facility] Low density lipoprot ein cholesterol measurement [facility] Mean corpuscular hemoglobin concentration determination [facility] Mean corpuscular hemoglobin determination [facility] Measurement of renal function [facility] Neutrophil count [facility] Neutrophil percent differential count [facility] End: 09-30-2024 Particle agglutination screen each antibody STREPTOCOCCUS PNEUMONIAE AG Microbiology STAT One time, now for 1 Occurrences starting 09/30/2024 until 09/30/2024 [employer] Comment on above: One time, now for 1 Occurrences starting 09/30/2024 until 09/30/2024 Patient Education Heart Failure and Depression Heart Failure Meds Heart Failure Flare Up Signs Heart Failure Make Changes Diet Heart Failure Dc Heart Failure Sleep Problems Heart Failure Care Heart Failure and Physical Activity Heart Failure [facility] Work Phone: Platelets [#/volume] in Blood [facility] Potassium measurement [facility] Red blood cell count [facility] Red cell distributio n width determination [facility] End: 04-28-2024 Respiratory pathogens DNA and RNA panel - Lower respiratory specimen by DEENA with non-probe detection Pneumonia PCR Panel Microbiology Routine Once (Lab) for 1 Occurrences starting 04/28/2024 until 04/28/2024 [facility] Work Phone: Comment on above: Once (Lab) for 1 Occurrences starting until 04/28/2024 Serum chloride measurement [facility] Sodium measurement [facility] Total cholesterol:HD L ratio measurement [facility] Total protein measurement [facility] Triglycerides measurement [facility] Urea nitrogen [Mass/volume] in Serum or Plasma [facility] Urnls dip stick/tabl et rgnt auto w/o microscopy URINALYSIS W/REFLEX CULTURE Lab Routine When Specimen Available/Needed for 1 Occurrences starting 10/25/2024 [facility] Comment on above: When Specimen Available/Needed for 1 Occ urrences starting 10/25/2024 VLDL cholesterol measurement [facility] Immunizations Immunization Date Immunization Notes [facility] Hemoglobin A1C Vargas Berg MD Work Phone: [facility] 06-14-2024 influenza vaccine tiss-cult subunt (Flucelvax) STANDARD-DOSE injection 0.5 mL Joel Reyes MD Work Phone: [facility] Payers Date Payer Category Payer Self-pay 2024 Commercial Managed C are - HMO [id number] 2024 Other Federal [facility] [employer]CH[employer] [id number] 2024 Private Health Insurance [facility] [id number] 2024 Unknown [id number] 2024 Medicaid [id number]. [id number] 2024 Medicaid [id number] 1978 Unknown [id number] 2.840.1.761239.3.579.2. 159 1978 Unknown [id number] 2.840.1.374945.3.579.2 1978 Unknown [id number] 2.0.1.153833.3.579.2 1978 Unknown [id number] 2.840.1.849264.3.579.2 1978 Unknown [id number] 840.1.267388.3.579.2 1978 Unknown [id number] 2.840.1.056324.3.579.2. 1978 Unknown [id number] 2.840.1.868910.3.579.2 1978 Unknown [id number] 2.840.1.116867.3.579.2. 1978 Unknown [id number] 2.840.1.661887.3.579.2 1978 Unknown [id number] 2..840.1.332380.3.579.2 1978 Unknown [id number] 2..840.1.493057.3.579.2 1978 Unknown [id number] 2.16.840.1.328059.3.579.2 1978 Unknown [id number] 2..840.1.036140.3.579.2 1978 Unknown [id number] 2..840.1.132706.3.579.2 1978 Unknown [id number] .840.1.434475.3.579. 1978 Unknown [id number] 2.840.1.381986.3.579. 1978 Unknown [id number] .840.1.207164.3.579. 1978 Unknown [id number] 2.840.1.824485.3.579. 1978 Unknown [id number] 2.840.1.831725.3.579.2 1978 Unknown [id number] 2.840.1.928400.3.579.2 1978 Unknown [id number] .840.1.434292.3.579.2 1978 Unknown [id number] 2.840.1.792451.3.579.2 1978 Unknown [id number] 2.840.1.702855.3.579.2 1978 Unknown [id number] 2..840.1.191235.3.579.2 1978 Unknown [id number] 2.840.1.069133.3.579.2. 732 1978 Unknown [id number] 2..840.1.298141.3.579.2. 732 1978 Unknown [id number] 2.16.840.1.220874.3.579.2. 732 Unknown Unknown [id number] 2.16.840.1.854007.3.579.2. 462 Unknown [id number] 2.16.840.1.712099.3.579.2. 462 Unknown [id number] 2.16.840.1.249682.3.579.2. 462 Unknown [id number] 2.16.840.1.818805.3.579.2. 462 Unknown [id number] 2.16.840.1.231409.3.579.2. 462 Unknown [id number] 2.16.840.1.917399.3.579.2. 462 Unknown [id number] 2.16.840.1.465397.3.579.2. 462 Unknown [id number] 2.16.840.1.152588.3.579.2. 462 Unknown [id number] 2.16.840.1.084145.3.579.2. 462 Unknown [id number] 2.16.840.1.476022.3.579.2. 462 Unknown [id number] 2.840.1.334177.3.579.2. 462 Unknown [id number] 2.16840.1.747921.3.579.2. 462 Social History Date Type Detail Facility Start: 02-28-2024 End: 01-29-2025 Tobacco smoking status MOIS Never smoked tobacco [facility] Start: 02-28-2024 End: 08-27-2024 Tobacco use and exposure Smokeless tobacco non-user [facility] Start: 02-28-2024 End: 01-20-2025 History of Social function [facility] Start: 02-28-2024 End: 01-20-2025 B1300 Health Literacy [facility] How often do you nee d to have someone help you when you read instructions, pamphlets, or other written material from your doctor or pharmacy [SILS] Never [facility] Has the electric, gas, oil, or water company threatened to shut off services in your home in past 12Mo No [facility] Are you now , , , , never or living with a partner? Living with partner [facility] How often to you hav e a drink containing alcohol? Never [facility] How hard is it for you to pay for the very basics like food, housing, medical care, and heating Not very hard [facility] Do you feel stress - tense, restless, nervous, or anxious, or unable to sleep at night because your mind is troubled all the time - these days [OSQ] To some extent [facility] (I/We) worried whether (my/our) food would run out before (I/we) got money to buy more. Never true [facility] Start: 1980 Sex assigned at Not on file [facility] How often to you hav e a drink containing alcohol? Monthly or less [facility] How many standard drinks containing alcohol do you have on a typical day? 1 or 2 [facility] Start: 02-28-2024 End: 08-09-2024 Sex Male (finding) [facility] Do you feel stress - tense, restless, nervous, or anxious, or unable to sleep at night because your mind is troubled all the time - these days [OSQ] Not at all [facility] Start: 05-28-2024 Sexual orientation Heterosexual (fin ding) [facility] Start: 05-28-2024 End: 08-25-2024 Alcoholic beverage intake Lifetime non-drinker (finding) [facility] Start: 1980 Sex assigned at Male [facility] [employer] Start: 06-13-2024 Gender identity Identifies as male gender (finding) [facility] Tobacco smoking status MOIS Tobacco smoking consumption unknown [facility] Work Phone: NEGATED: Highlighted rowStart: NINF History of tobacco use Passive smoker [facility] Health Goals Date Patient Goal Desired Activity /State Personal health goal Functional Status Date Assessment Result Facility 07-25-2025 Are you deaf, or do you have serious difficulty hearing No 01/21/2025 1:26 PM King Villeda, RN No [facility] 01-21-2025 Are you blind, or do you have serious difficulty seeing, even when wearing glasses No 01/21/2025 1:26 PM King Villeda, RN No [facility] 01-21-2025 Do you have serious difficulty walking or climbing stairs No 01/21/2025 1:26 PM King Villeda, CRISTINE No [facility] 01-21-2025 Do you have difficul ty dressing or bathing No 01/21/2025 1:26 PM King Villeda, CRISTINE No [facility] 01-21-2025 Because of a physica l, mental, or emotional condition, do you have difficulty doing errands alone such as visiting a physician's office or shopping No 01/21/2025 1:26 PM King Villeda RN No [facility] 01-10-2025 Functional status Ambulates;Bath room Privilege [facility] Work Phone: 01-10-2025 Functional status Ambulates [facility] Work Phone: 01-09-2025 Functional status Tolerates Activity [facility] Work Phone: 06-01-2024 Are you deaf, or do you have serious difficulty hearing No [facility] 06-01-2024 Are you blind, or do you have serious difficulty seeing, even when wearing glasses No [facility] 06-01-2024 Do you have serious difficulty walking or climbing stairs No [facility] 06-01-2024 Do you have difficul ty dressing or bathing No [facility] 06-01-2024 Because of a physica l, mental, or emotional condition, do you have difficulty doing errands alone such as visiting a physician's office or shopping No [facility] Mental Status Date Assessment Result Facility 01-21-2025 Because of a physica l, mental, or emotional condition, do you have serious difficulty concentrating, remembering, or making decisions No 01/21/2025 1:26 PM King Villeda RN No [facility] 01-10-2025 [facility]: 01-09-2025 Cognitive function Voice/Name [facility] Work Phone: 06-01-2024 Because of a physica l, mental, or emotional condition, do you have serious difficulty concentrating, remembering, or making decisions No [facility] Clinical Notes 02-28-2024 to 02-01-2025 Note Date & Type Note Facility 02-01-2025 Note HNO ID: [id number] Author: JASON CANO MD Service: Hospital Medicine Author Type: Physician Type: Progress Notes Filed: 02/01/2025 13:00 Note Text: INPATIENT PROGRESS NOTE CHIEF COMPLAINT: shortness of breath INTERVAL HPI: Pt had paracentesis yest with improvement in his symptoms. Denies CP/Shortness of Breath/palpitations Stable on RA and seen ambulating in the room No fever/chills PHYSICAL EXAM: BP 109/78 Pulse 88 Temp (Src) 97.3 (Oral) Resp 18 Ht 6' 1.622 (1.87m) Wt 155 lb 10.3 oz (70.6kg) SpO2 98% BMI 20.19 kg/(m2). O2 Therapy: Room Air GENERAL: Alert, no distress, cooperative LUNGS: Lungs clear to auscultation, Good diaphragmatic excursion CARDIAC: Normal S1 and S2; no rubs, murmurs, or gallops ABDOMEN: Abdomen soft, non-tender, BS normal, No masses or organomegaly EXTREMITIES: evans LE edema+ DATA: Diagnostic tests reviewed for today's visit: CBC, Coags, BMP, Mg, Phos Recent Labs 01/30/25 0005 WBC 7.37 HB 13.4 HCT 42.4 PLT 383 INR 1.4* APTT 31.1 NA 144 K 4.0 CHLOR 104 CO2 23 BUN 31* CREAT 2.24* GLUC 101* CA 9.1 MG 2.3 Problem List Ascites of liver (POA: Yes) Dyspnea on exertion (POA: Yes) HFrEF (heart failure with reduced ejection fraction) (HCC) (POA: Yes) Liver cirrhosis (HCC) (POA: Yes) DVT (deep venous thrombosis) (HCC) (POA: Yes) Hyperbilirubinemia (POA: Yes) CKD stage 3b, GFR 30-44 ml/min (HCC) (POA: Yes) Elevated troponin (POA: Yes) Assessment/Plan # Acute on chronic systolic heart failure, HFrEF, TTE with LVEF of 15% with moderate to severe MR on 01/21/2025. CXR with pleural effusion. BNP elevated. Likely exacerbated by not adherence to medical advice. Continue aggressive diuresis with IV furosemide, metoprolol succinate, isosorbide and low-dose hydralazine. Not on ACEi due to SCHUYLER.Pt started on low dose hydralazine and coreg but refuses both. Restart home bumex Will need ICD evaluation after 3 months of GDMT. Defer to cardiology. #Elevated troponin likely due to demand ischemia in the setting of acute CHF exacerbation. Patient denies chest pain at this time. Will continue to monitor. #Ascites likely due to congestive heart failure. Extensive work in the past has been negative for cirrhosis, portal HTN, with negative infectious/immunologic w/u.. No evidence of hepatic encephalopathy at this time. Diagnostic/therapeutic paracentesis with IR on 02/21 with removal of 4500cc fluid RUQ ultrasound only shows ascites, dilated hepatic veins and inf vena cava likely due to cardiac dysfunction. Maintain on furosemide. GI input noted. #History of DVT, will continue home apixaban. # Nonadherence to medical therapy with multiple hospitalization for HF exacerbation. #CKD stage III. Cr stable Avoid nephrotoxic agents. Plan for DC home today Recommended close f/u with cardiology out pt HIGH RISK for readmission Plan of care discussed with: Provider, RN, Patient. SIGNATURE: Jason Cano MD PATIENT NAME: Carlo Medina DATE: February 01, 2025 TIME: 12:54 PM PAGER: [facility] 02-01-2025 Note HNO ID: [id number] Author: KASSANDRA ENGLAND LSW Service: Care Management Author Type: Chargeback Specialist Type: Care Mgt Progress Note Filed: 02/01/2025 12:26 Note Text: CARE MANAGEMENT DISCHARGE NOTE SERVICE DATE: February 01, 2025 SERVICE TIME: 12:25 PM Admission Date: 01/29/2025 LOS: 3 days Discharge Arrangement Provider Name: Working on establishing a PCP Caregiver Assessment Caregiver is ready, willing and able to meet the patient's needs as recommended by the inter-professional team: No Caregiver needed Transportation Arrangements Transportation Arrangements: To Be Determined Handoff Communication: Additional Information: Per MD Pt is anticipated to dc today, Pt has family coming to pick him up at 4:30pm today. Pt will establish with a PCP and utilize [facility] in the future. No discharge concerns at this time. SIGNATURE: MADDIE Billy PATIENT NAME: Carlo Medina DATE: February 01, 2025 TIME: 12:[address] [facility] 02-01-2025 Note HNO ID: [id number] Author: KASSANDRA ENGLAND LSW Service: Care Management Author Type: Chargeback Specialist Type: Care Mgt Initial Assessment Filed: 02/01/2025 10:00 Note Text: CARE MANAGEMENT: ASSESSMENT AND DISCHARGE PLAN SERVICE DATE: February 01, 2025 SERVICE TIME: 9:57 AM PCP: No primary care provider on file. Primary Contact: No emergency contact information on file. Admission Status: Inpatient Insurance Provider: [facility] Discharge Planning requested by: Per Department Practice Potential Transition Plans Home Advance Directives Current Advance Directive: None Micro Lab Analyst Attempted to Assist with AD Completion: Yes Action: Education Provided Current Living Arrangements and Support Lives with: Spouse/significant other, Other person(s) Girlfriend's brother Type of Residence: Private Residence (House) Does the patient have to climb stairs at home?: Yes Support: Family members How do you manage to accomplish the following: Independent: Ambulation, Bathe/Shower, Dress, Meals/Meal Prep, Going to the bathroom, Medication Management, Transportation to appointments/community Current Services/Equipment Current Post-Acute Service(s): None Discharge Planning Patient Goal(s): Be able to go home, General wellness [place] of Choice Explained: [place] of Choice Given: No Reason Not Given: Unable to complete with this assessment - revisit, No placements necessary Are you interested in bedside delivery of your medications? No Discharge Planning Participant(s): Patient Patient/Family Comments: Ascites of Liver Caregiver Assessment: Caregiver is ready, willing and able to meet the patient's needs as recommended by the inter-professional team: No Caregiver needed Transport at Discharge: Transportation Arrangements: To Be Determined Needs Prior to Discharge: Needs Prior to Discharge: To Be Determined Post-Acute Discharge Plan: SW met with Pt at bedside. Pt does not have a PCP, reports looking around due to a recent change in hospital system. SW provided resources for PCP. Pt does not have a HCPOA, pt does not want to provide emergency contacts as he reports that his hospital ([facility]) has them on file and that he will not return here due to distance. Pt lives in a house with his girlfriend and her brother. Pt was independent at baseline and reports no psychosocial needs. Pt does not have available transport today as his girlfriend has plans, may have to assist with transport. DCP: Likely home with self-care, may need assist with transport. SIGNATURE: MADDIE Billy PATIENT NAME: Carlo Medina DATE: February 01, 2025 TIME: 9:[address] [facility] 01-31-2025 Note HNO ID: [id number] Author: JACE JIN APRN.OFFICE CORRESPONDENT Service: Gastroenterology Author Type: Nurse Practitioner Type: Plan of Care Filed: 01/31/2025 08:36 Note Text: GI following for ascites with concern for cirrhosis. Medical chart reviewed. Patient not seen face to face. Suspect ascites most likely secondary to heart failure. Previous liver work up negative - alpha-1 antri trypsin, ceruloplasmins, Smooth muscle, AMA negative. ECHO revealed EF 15%. MELD 3.0: 24 at 01/30/2025 12:05 AM MELD-Na: 23 at 01/30/2025 12:05 AM Calculated from: Serum Creatinine: 2.24 mg/dL at 01/30/2025 12:05 AM Serum Sodium: 144 mmol/L (Using max of 137 mmol/L) at 01/30/2025 12:05 AM Total Bilirubin: 3.8 mg/dL at 01/30/2025 12:05 AM Serum Albumin: 3.4 g/dL at 01/30/2025 12:05 AM INR(ratio): 1.4 at 01/30/2025 12:05 AM Age at listing (hypothetical): 44 years Sex: Male at 01/30/2025 12:05 AM Recommendations: -Monitor LFTs - Today, T bili 3.8, ALP 436, ALT 10, AST 15 -Monitor INR - INR 1.3 -Obtain daily weight to assess fluid status -Recommend low sodium, high protein diet -Check XOCHITL -Check acute hepatitis panel -Paracentesis with fluid studies ordered. Will follow results of fluid studies. -RUQ US showed large amount of ascites, dilated hepatic veins and inferior vena cava, most likely due to cardiac dysfunction, no bile duct dilation -Cardiology following - diuretics therapy being managed per cardiology. -GI will continue to follow. GI attending, Dr. Bates [facility] 01-31-2025 Note HNO ID: [id number] Author: ROLANDO ROBBINS MD Service: General Internal Medicine Author Type: Physician Type: Progress Notes Filed: 01/31/2025 07:57 Note Text: DEPARTMENT OF HOSPITAL MEDICINE PROGRESS NOTE SERVICE DATE: 01/31/2025 SERVICE TIME: 7:50 AM Hospital Medicine/Primary Attending: Rolando Robbins MD NIGHT AND WEEKEND COVERAGE: [place] COVERAGE: From 7am - 7pm, please call [phone] After 7pm, please call cross cover pager #[phone] Subjective INTERVAL HPI: Patient refused to take full dose of Lasix last evening. He tells me he did not want to be getting up all night to pee. Otherwise, no major events noted overnight. He reports some improvement in SOB. Denies any CP, N/V/D. Afebrile. He is on room air. Current Facility-Administered Medications Medication Dose Route Frequency acetaminophen 650 mg tab(s) (TYLENOL) 650 mg ORAL q 4 H PRN aluminum-magnesium hydroxide-simethicone 200-200-20 mg/5 mL 30 mL 30 mL ORAL q 6 H PRN ondansetron (PF) 4 mg injection (ZOFRAN) 4 mg INTRAVENOUS q 6 H PRN NaCl 0.9% iv flush bag 20 mL INTRAVENOUS PRN apixaban 5 mg tab(s) (ELIQUIS) 5 mg ORAL BID isosorbide dinitrate 20 mg tab(s) (ISORDIL) 20 mg ORAL TID furosemide 80 mg injection (LASIX) 80 mg INTRAVENOUS q 12 H 6a/6p metoprolol succinate ER 25 mg tab(s) (TOPROL XL) 25 mg ORAL DAILY Objective PHYSICAL EXAM: BP 119/86 Pulse 41 Temp (Src) 97.4 (Oral) Resp 19 Ht 6' 1.622 (1.87m) Wt 176 lb (79.8kg) SpO2 98% BMI 22.83 kg/(m2). O2 Therapy: Room Air Physical Exam Performed GENERAL: On examination, the patient is chronically ill looking. Patient is awake, alert and oriented to person, place, time, and situation. Patient is verbal, conversational, does not appear to be in any acute distress. No flapping tremors noted CARDIOVASCULAR: S1 and S2 auscultated without murmurs, gallops or rubs. +2 edema noted. JVD+ CHEST: Poor air entry. No wheezing, rales or rhonchi appreciated. Symmetrical, unlabored. Equal chest expansion. ABDOMEN: Soft, distended, with fluid thrill, nontender, without R, R, G. BS x 4 WNL PSYCHIATRIC: Decision making capacity is intact , with good judgment and insight. Appropriate mood with congruent affect. NEUROLOGICAL: Equal strength noted to all four extremities. Speech intact. Lines, Drains, and Airways Line Duration Peripheral 01/29/25 External Facility Right Arm 20 Gauge 2 days Reviewed lines and needs to be continued: REASONS: Intravenous fluids DATA: Diagnostic tests reviewed for today's visit: CBC, Coags, BMP, Mg, Phos Recent Labs 01/30/25 0005 WBC 7.37 HB 13.4 HCT 42.4 PLT 383 INR 1.4* APTT 31.1 NA 144 K 4.0 CHLOR 104 CO2 23 BUN 31* CREAT 2.24* GLUC 101* CA 9.1 MG 2.3 Assessment/Plan Problem List Assessment AND Plan Ascites of liver Dyspnea on exertion HFrEF (heart failure with reduced ejection fraction) (HCC) Liver cirrhosis (HCC) DVT (deep venous thrombosis) (HCC) Hyperbilirubinemia CKD stage 3b, GFR 30-44 ml/min (HCC) Elevated troponin HOSPITAL COURSE: Carlo Medina is a 44 year old male presented with past medical history of CKD stage III, ascites, ILD, DVT on apixaban, HFrEF with LVEF of 15% who was admitted on 01/29/2025 for shortness of breath likely secondary to CHF decompensation. Of note, extensive work in the past has been negative for cirrhosis, portal HTN, with negative infectious/immunologic w/u. Acute on chronic systolic heart failure, HFrEF, TTE with LVEF of 15% with moderate to severe MR on 01/21/2025. CXR with pleural effusion. BNP elevated. Likely exacerbated by not adherence to medical advice. Continue aggressive diuresis with IV furosemide, metoprolol succinate, isosorbide and low-dose hydralazine. Not on ACEi due to SCHUYLER. Previously discontinued hydralazine. Plan to start on SGLT2 inhibitor later. Will need ICD evaluation after 3 months of GDMT. Defer to cardiology. Elevated troponin likely due to demand ischemia in the setting of acute CHF exacerbation. Patient denies chest pain at this time. Will continue to monitor. Ascites likely due to congestive heart failure. Extensive work in the past has been negative for cirrhosis, portal HTN, with negative infectious/immunologic w/u.. No evidence of hepatic encephalopathy at this time. Diagnostic/therapeutic paracentesis with IR on 02/21. RUQ ultrasound pending. Maintain on furosemide. GI input noted. History of DVT, will continue home apixaban. Nonadherence to medical therapy with multiple hospitalization for HF exacerbation. Of educated patient on importance of appropriate follow-up, taking medications as prescribed. He has expressed an understanding of the associated risks of nonadherence. CKD stage III. Creatinine 2.2. No acute issues. Avoid nephrotoxic agents. DVT prophylaxis. On apixaban Medication and Non-Pharmacologic VTE Prophylaxis/Anticoagulants Anticoagulant AND Antiplatelet Medications (From admission, onw (more content not included)... [facility] 01-30-2025 Note HNO ID: [id number] Author: ROLANDO ROBBINS MD Service: General Internal Medicine Author Type: Physician Type: Progress Notes Filed: 01/30/2025 14:54 Note Text: DEPARTMENT OF HOSPITAL MEDICINE PROGRESS NOTE SERVICE DATE: 01/30/2025 SERVICE TIME: 9:11 AM Hospital Medicine/Primary Attending: Nic Rosado,* NIGHT AND WEEKEND COVERAGE: [place] COVERAGE: From 7am - 7pm, please call [phone] After 7pm, please call cross cover pager #[phone] Subjective INTERVAL HPI: No major events noted overnight. He reports some improvement in SOB. Denies any CP, N/V/D. She is afebrile. He is on room air. Current Facility-Administered Medications Medication Dose Route Frequency acetaminophen 650 mg tab(s) (TYLENOL) 650 mg ORAL q 4 H PRN aluminum-magnesium hydroxide-simethicone 200-200-20 mg/5 mL 30 mL 30 mL ORAL q 6 H PRN ondansetron (PF) 4 mg injection (ZOFRAN) 4 mg INTRAVENOUS q 6 H PRN NaCl 0.9% iv flush bag 20 mL INTRAVENOUS PRN apixaban 5 mg tab(s) (ELIQUIS) 5 mg ORAL BID isosorbide dinitrate 20 mg tab(s) (ISORDIL) 20 mg ORAL TID furosemide 80 mg injection (LASIX) 80 mg INTRAVENOUS q 12 H 6a/6p Objective PHYSICAL EXAM: BP 126/94 Pulse 88 Temp (Src) 97.4 (Oral) Resp 14 Ht 6' 1.622 (1.87m) Wt 176 lb (79.8kg) SpO2 95% BMI 22.83 kg/(m2). O2 Therapy: Room Air Physical Exam Performed GENERAL: On examination, the patient is chronically ill looking. Patient is awake, alert and oriented to person, place, time, and situation. Patient is verbal, conversational, does not appear to be in any acute distress. No flapping tremors noted CARDIOVASCULAR: S1 and S2 auscultated without murmurs, gallops or rubs. +1 edema noted. JVD+ CHEST: Poor air entry. No wheezing, rales or rhonchi appreciated. Symmetrical, unlabored. Equal chest expansion. ABDOMEN: Soft, distended, with fluid thrill, nontender, without R, R, G. BS x 4 WNL PSYCHIATRIC: Decision making capacity is intact , with good judgment and insight. Appropriate mood with congruent affect. NEUROLOGICAL: Equal strength noted to all four extremities. Speech intact. Lines, Drains, and Airways Line Duration Peripheral 01/29/25 External Facility Right Arm 20 Gauge 1 day Reviewed lines and needs to be continued: REASONS: Intravenous fluids DATA: Diagnostic tests reviewed for today's visit: CBC, Coags, BMP, Mg, Phos Recent Labs 01/30/25 0005 WBC 7.37 HB 13.4 HCT 42.4 PLT 383 INR 1.4* APTT 31.1 NA 144 K 4.0 CHLOR 104 CO2 23 BUN 31* CREAT 2.24* GLUC 101* CA 9.1 MG 2.3 Assessment/Plan Problem List Assessment AND Plan Ascites of liver Dyspnea on exertion HFrEF (heart failure with reduced ejection fraction) (HCC) Liver cirrhosis (HCC) DVT (deep venous thrombosis) (HCC) Hyperbilirubinemia CKD stage 3b, GFR 30-44 ml/min (HCC) Elevated troponin HOSPITAL COURSE: Carlo Medina is a 44 year old male presented with past medical history of CKD stage III, ascites, ILD, DVT on apixaban, HFrEF with LVEF of 15% who was admitted on 01/29/2025 for shortness of breath likely secondary to CHF and liver disease decompensation. Acute on chronic systolic heart failure, HFrEF, TTE with LVEF of 15% with moderate to severe MR on 01/21/2025. CXR with pleural effusion. Likely exacerbated by not adherence to medical advice. Continue aggressive diuresis with IV furosemide, metoprolol succinate, isosorbide and low-dose hydralazine. Not on ACEi due to SCHUYLER. Previously discontinued hydralazine. Plan to start on SGLT2 inhibitor later. Will need ICD evaluation after 3 months of GDMT. Defer to cardiology. Elevated troponin likely due to demand ischemia in the setting of acute CHF exacerbation. Patient denies chest pain at this time. Will continue to monitor. Ascites with extensive work in the past has been negative for cirrhosis, portal HTN, negative infectious/immunologic w/u.. No evidence of hepatic encephalopathy at this time. ?congestive hapatology for CHF? Diagnostic/therapeutic paracentesis with IR on 02/21. RUQ ultrasound pending. GI consult pending. Maintain on furosemide and lactulose as ordered. History of DVT, will continue home apixaban. Nonadherence to medical therapy with multiple hospitalization for HF exacerbation. Of educated patient on importance of appropriate follow-up, taking medications as prescribed. He has expressed an understanding of the associated risks of nonadherence. CKD stage III. No acute issues. Will monitor closely. DVT prophylaxis. On apixaban Medication and Non-Pharmacologic VTE Prophylaxis/Anticoagulants Anticoagulant AND Antiplatelet Medications (From admission, onward) Start Dose Route Frequency Last Action Ordered Stop 01/30/25 0900 apixaban 5 mg tab(s) (ELIQUIS) 5 mg PO 2 TIMES DAILY Given, 01/30 0834 01/30/25 0523 -- 01/30/25 0000 activity - mobilize patient (la,oh) VTE Prophylaxis: VTE prophylaxis appropriate Disposition: To be determined Plan of car (more content not included)... [facility] 01-29-2025 Discharge summary Note Date/Time January 29, 2025 4:35pm [facility] Medical Records Department [address] [place] [address] Emergency Department Summary 01/29/25 MR#: [id number] Acct: [id number] Name: CARLO MEDINA Rep #:[id number] : 1980 44 From: Vargas Rea DO PCP: Care Physician,No Primary Status :REG ER Location: ED HPI History of Present Illness Chief Complaint: Shortness of Breath Narrative Narrative: Patient is a 44-year-old male with past medical history of chronic kidney disease, heart failure with reduced ejection fraction, DVT, PE, abdominal ascites who presented to the emergency department the chief complaint of shortness of breath, cough and abdominal bloating with pain. Patient states that he came today as he has shortness of breath and cough and concern for that his cough is turning into pneumonia. He states that he has been short of breathas well but notes that this is a chronic issue. [facility] Medical History Abdominal ascites CKD stage 3b, GFR 30-44 ml/min Elevated bilirubin HFrEF (heart failure with reduced ejection fraction) Left ventricular ejection fraction less than 20% Kidney disease Non-smoker Irregular heart beat DVT (deep venous thrombosis) CKD (chronic kidney disease) Cardiomyopathy Left bundle branch block Noncompliance Pulmonary embolism CHF (congestive heart failure) Home Medications ?Medication ?Instructions ?Recorded ?Last Taken ?Type apixaban 5 mg tablet (Eliquis) 5 mg PO BID 01/04/25 History bumetanide 1 mg tablet 1 mg PO BID 01/04/25 5 History isosorbide dinitrate 20 mg tablet 20 mg PO Q8H 5 01/28/25 History Allergy/AdvReac Type Severity Reaction Status Date / Time No Known Allergies Allergy Verified 01/29/25 07:50 Family History Father Heart disease Brother Heart disease Social History Smoking Status: Never smoker alcohol intake: never substance use type: does not use ROS ROS ED ROS Narrative Constitutional: Denies any fevers, chills, headaches Cardiovascular: Denies chest pain Respiratory: Complains of cough and shortness of breath states he is coughing stuff up Abdomen: Complains of abdominal bloating and pain denies nausea vomiting diarrhea : Denies any urinary symptoms Neurological: Denies any numbness, weakness, tingling Musculoskeletal: Complains of lower extremity swelling denies back pain Skin: Denies any rashes or lesions EXAM Physical Exam Narrative Exam Narrative: General: Patient lying in bed rest comfortably did not appear to be in acute distress Head: Atraumatic, normocephalic Eyes: PERRL bilaterally, EOMI blood, no conjunctival injection noted Neck: Soft, supple, trachea midline Cardiovascular: Regular rate and rhythm Respiratory: Clear to auscultation bilaterally Abdomen: Soft, distended, diffuse tenderness palpation no rebound or guarding onexam Extremities: Patient has 2+ pitting edema in the bilateral lower extremities, +4/5 strength noted in the bilateral upper and lower extremities Neurological: Patient follow commands that he was at [facility] years 2024 Skin: Warm, dry, tact no rashes lesions noted Const Vital Signs: 01/29/25 07:49 01/29/25 07:57 01/29/25 08:34 Temperature 97 F L Temperature Source Temporal Pulse Rate 67 Respiratory Rate 22 H Respiratory Effort Normal Non-Labored Respiratory Depth Normal Respiratory Pattern Normal Blood Pressure 180/121 H Blood Pressure Mean 140 Pulse Ox 92 Oxygen Delivery Method Room Air Nasal Cannula Nasal Cannula Oxygen Flow Rate (L/min) 01/29/25 09:34 01/29/25 11:00 01/29/25 13:00 Temperature Temperature Source Pulse Rate 101 H 95 96 Respiratory Rate 29 H 15 28 H Respiratory Effort Respiratory Depth Respiratory Pattern Blood Pressure 109/94 H Blood Pressure Mean 99 Pulse Ox 100 95 94 Oxygen Delivery Method Nasal Cannula Room Air Oxygen Flow Rate (L/min) 2 01/29/25 15:00 01/29/25 15:24 Temperature 97 F L Temperature Source Pulse Rate 98 98 Respiratory Rate 27 H 27 H Respiratory Effort Respiratory Depth Respiratory Pattern Blood Pressure 109/94 H Blood Pressure Mean 99 Pulse Ox 94 Oxygen Delivery Method Oxygen Flow Rate (L/min) MDM MDM MDM Narrative Medical decision making narrative: Patient is a 44-year-old male who presents to the emergency department with a chief complaint of cough, shortness of breath and bloating/abdominal distention. On the differential diagnosis includes but not limited to CHF exacerbation, ACS, pneumonia, pneumothorax, intra-abdominal ascites. Once workup is obtained reviewed he will be reevaluated. We will hold off on fluids for now as there isconcern for CHF exacerbation and patient has poor ejection fraction with the most recent on 01/04/2025 with a ejection fraction of 15% with stage III diastolicdysfunction. Patient CBC was noted be normal at 7.5, hemoglobin 13.4, platelet count normal at 368.. Patient INR was 1.5, PT of 18.8. Patient sodium was 141, potassium normal at 4.4, creatinine was elevated 2.47 which is worsened since December, GFR isworsening as well since December from 56 down to 32. Patient's total bilirubin was noted be 4.74, direct bilirubin of 3.02. Patient's AST and ALT are 20 and 10 respectively. Patient's troponin was 53 with a delta troponin of 55 and a 4-hour troponin of 49. Patient's EKG reviewed showed sinus tachycardia with fusion complexes with a rate of 107 bpm. Patient proBNP elevated 49,093. Patient's ultrasound showed hepatic fibrosis/steatosis large volume ascites consider diagnostic and therapeutic paracentesis for further evaluation as clinically indicated. Patient chest x-ray reviewed by myself by radiology showed no acute cardiopulmonary processes stable cardiomegaly. Will discuss case with hospitalist for admission. Patient be given Bumex. Discussed case with hospitalist Dr. Jaquez who is requesting transfer. I discussed this with the patient and he would prefer to go to [facility]. At 3:45 PM discussed the case with transfer line awaiting callback. Transfer line called back and notified us that the accepting physician is Dr. Burns who accept the patient to [facility]. Patient was notified is agreeable to plan. Lab Data Labs: Laboratory Results - last 24 hr 01/29/25 01/29/25 01/29/25 08:26 08:43 09:58 WBC 7.5 RBC 4.08 L Hgb 13.4 Hct 42.0 MCV 102.9 H MCH 32.8 H MCHC 31.9 L RDW Std Deviation 61.2 H RDW Coeff of Juna 16.3 H Plt Count 368 MPV 10.2 Immature Gran % (Auto) 0.300 Neut % (Auto) 62.1 Lymph % (Auto) 28.4 [place] % (Auto) 8.2 Eos % (Auto) 0.3 Baso % (Auto) 0.7 Absolute Neuts (auto) 4.7 Absolute Lymphs (auto) 2.12 Nucleated RBC % 0.7 PT Cancelled 18.8 H INR Cancelled 1.5 APTT Cancelled 32.5 Sodium 141 Potassium 4.4 Chloride 104 Carbon Dioxide 21.1 Anion Gap 16 H BUN 36 H Creatinine 2.47 H Estim Creat Clear Calc 41.81 L Est GFR (MDRD) Non-Af 32 L BUN/Creatinine Ratio 14.7 Glucose 130 H Calcium 9.1 Total Bilirubin 4.74 H Direct Bilirubin 3.02 H AST 20 ALT 10 Alkaline Phosphatase 462 H Troponin T High Sens 53 H D Troponin T Hi Sens 2 Hr 55 H* Troponin [place] 4[place] [address] H Total Protein 6.7 Albumin 3.5 Globulin 3.2 01/29/25 13:18 WBC RBC Hgb Hct MCV MCH MCHC RDW Std Deviation RDW Coeff of Juan Plt Count MPV Immature Gran % (Auto) Neut % (Auto) Lymph % (Auto) [place] % (Auto) Eos % (Auto) Baso % (Auto) Absolute Neuts (auto) Absolute Lymphs (auto) Nucleated RBC % PT INR APTT Sodium Potassium Chloride Carbon Dioxide Anion Gap BUN Creatinine Estim Creat Clear Calc Est GFR (MDRD) Non-Af BUN/Creatinine Ratio Glucose Calcium Total Bilirubin Direct Bilirubin AST ALT Alkaline Phosphatase Troponin T High Sens Troponin T Hi Sens 2 Hr Troponin T Hi Sens 4Hr 49 H NT pro BNP II Total Protein Albumin Globulin Radiography Diagnostic Testing: Clinical Impression(s) from Imaging Studies Abdomen/Pelvis CT 01/29/25 08:03 IMPRESSION: 1. Significantly limited examination. 2. Probable right lower lung opacities, which may reflect pneumonitis/pneumonia. 3. Large volume ascites. 4. Severe cardiomegaly. Reading Location: [facility] Chest X-Ray 01/29/25 10:07 IMPRESSION: No acute pulmonary process, stable cardiomegaly Reading Location: [id number] Abdomen Ultrasound 01/29/25 11:34 IMPRESSION: Hepatic fibrosis/steatosis. Large volume ascites. Consider diagnostic and therapeutic paracentesis for further evaluation as clinically indicated. Reading Location: [facility] Discharge Plan Triage Chief Complaint: Shortness of Breath ED Provider: Vargas Rea Dx/Rx/DC Orders Clinical Impression: Abdominal ascites, Abdominal pain, CHF exacerbation, Elevated bilirubin Prescriptions: No Action isosorbide dinitrate 20 mg tablet 20 mg PO Q8H bumetanide 1 mg tablet 1 mg PO BID Eliquis 5 mg tablet 5 mg PO BID Primary Care Provider: Care Physician,No Primary Referrals: Care Physician,No Primary [Primary Care Provider] - Print Language: Lithuanian Disposition Disposition: DC/Tx to Another Type of HCF What to do if you have Problems For any increased pain, shortness of breath, bleeding, nausea or vomiting, chestpain, or any unexpected problems, contact your Primary Care Provider. Call [facility] ([phone]) or report to the closest Emergency Room. Call 911 if necessary. 01/29/25 1635 <Electronically signed by Vargas Rea DO> Cosigner Signature (if applicable): CC: No Primary Care Physician ~ Signed [facility] Work Phone: [phone] 683-293308-02-2025 Discharge summary [facility] Medical Records Department [address] [place] [id number] Emergency Department Summary 01/29/25 MR#: [id number] Acct: [id number] Name: CARLO MEDINA Rep #:[id number] : 1980 44 From: Vargas Rea DO PCP: Care Physician,No Primary Status :REG ER Location: ED HPI History of Present Illness Chief Complaint: Shortness of Breath Narrative Narrative: Patient is a 44-year-old male with past medical history of chronic kidney disease, heart failure with reduced ejection fraction, DVT, PE, abdominal ascites who presented to the emergency department the chief complaint of shortness of breath, cough and abdominal bloating with pain. Patient states that he came today as he has shortness of breath and cough and concern for that his cough is turning into pneumonia. He states that he has been short of breathas well but notes that this is a chronic issue. [facility] Medical History Abdominal ascites CKD stage 3b, GFR 30-44 ml/min Elevated bilirubin HFrEF (heart failure with reduced ejection fraction) Left ventricular ejection fraction less than 20% Kidney disease Non-smoker Irregular heart beat DVT (deep venous thrombosis) CKD (chronic kidney disease) Cardiomyopathy Left bundle branch block Noncompliance Pulmonary embolism CHF (congestive heart failure) Home Medications ?Medication ?Instructions ?Recorded ?Last Taken ?Type apixaban 5 mg tablet (Eliquis) 5 mg PO BID 01/04/25 History bumetanide 1 mg tablet 1 mg PO BID 01/04/25 5 History isosorbide dinitrate 20 mg tablet 20 mg PO Q8H 5 01/28/25 History Allergy/AdvReac Type Severity Reaction Status Date / Time No Known Allergies Allergy Verified 01/29/25 07:50 Family History Father Heart disease Brother Heart disease Social History Smoking Status: Never smoker alcohol intake: never substance use type: does not use ROS ROS ED ROS Narrative Constitutional: Denies any fevers, chills, headaches Cardiovascular: Denies chest pain Respiratory: Complains of cough and shortness of breath states he is coughing stuff up Abdomen: Complains of abdominal bloating and pain denies nausea vomiting diarrhea : Denies any urinary symptoms Neurological: Denies any numbness, weakness, tingling Musculoskeletal: Complains of lower extremity swelling denies back pain Skin: Denies any rashes or lesions EXAM Physical Exam Narrative Exam Narrative: General: Patient lying in bed rest comfortably did not appear to be in acute distress Head: Atraumatic, normocephalic Eyes: PERRL bilaterally, EOMI blood, no conjunctival injection noted Neck: Soft, supple, trachea midline Cardiovascular: Regular rate and rhythm Respiratory: Clear to auscultation bilaterally Abdomen: Soft, distended, diffuse tenderness palpation no rebound or guarding onexam Extremities: Patient has 2+ pitting edema in the bilateral lower extremities, +4/5 strength noted in the bilateral upper and lower extremities Neurological: Patient follow commands that he was at [facility] years 2024 Skin: Warm, dry, tact no rashes lesions noted Const Vital Signs: 01/29/25 07:49 01/29/25 07:57 01/29/25 08:34 Temperature 97 F L Temperature Source Temporal Pulse Rate 67 Respiratory Rate 22 H Respiratory Effort Normal Non-Labored Respiratory Depth Normal Respiratory Pattern Normal Blood Pressure 180/121 H Blood Pressure Mean 140 Pulse Ox 92 Oxygen Delivery Method Room Air Nasal Cannula Nasal Cannula Oxygen Flow Rate (L/min) 01/29/25 09:34 01/29/25 11:00 01/29/25 13:00 Temperature Temperature Source Pulse Rate 101 H 95 96 Respiratory Rate 29 H 15 28 H Respiratory Effort Respiratory Depth Respiratory Pattern Blood Pressure 109/94 H Blood Pressure Mean 99 Pulse Ox 100 95 94 Oxygen Delivery Method Nasal Cannula Room Air Oxygen Flow Rate (L/min) 2 01/29/25 15:00 01/29/25 15:24 Temperature 97 F L Temperature Source Pulse Rate 98 98 Respiratory Rate 27 H 27 H Respiratory Effort Respiratory Depth Respiratory Pattern Blood Pressure 109/94 H Blood Pressure Mean 99 Pulse Ox 94 Oxygen Delivery Method Oxygen Flow Rate (L/min) MDM MDM MDM Narrative Medical decision making narrative: Patient is a 44-year-old male who presents to the emergency department with a chief complaint of cough, shortness of breath and bloating/abdominal distention. On the differential diagnosis includes but not limited to CHF exacerbation, ACS, pneumonia, pneumothorax, intra-abdominal ascites. Once workup is obtained reviewed he will be reevaluated. We will hold off on fluids for now as there isconcern for CHF exacerbation and patient has poor ejection fraction with the most recent on 01/04/2025 with a ejection fraction of 15% with stage III diastolicdysfunction. Patient CBC was noted be normal at 7.5, hemoglobin 13.4, platelet count normal at 368.. Patient INRwas 1.5, PT of 18.8. Patient sodium was 141, potassium normal at 4.4, creatinine was elevated 2.47 which is worsened since December, GFR isworsening as well since December from 56 down to 32. Patient's totalbilirubin was noted be 4.74, direct bilirubin of 3.02. Patient's AST and ALT are 20 and 10 respectively. Patient's troponin was 53 with a delta troponin of 55 and a 4-hour troponin of 49. Patient's EKG reviewed showed sinus tachycardia with fusion complexes with a rate of 107 bpm. Patient proBNP elevated 49,093. Patient's ultrasound showed hepatic fibrosis/steatosis large volume ascites consider d iagnostic and therapeutic paracentesis for further evaluation as clinically indicated. Patient chest x-ray reviewed by myself by radiology showed no acute cardiopulmonary processes stable cardiomegaly. Will discuss case with hospitalist for admission. Patient be given Bumex. Discussed case with hospitalist Dr. Jaquez who is requesting transfer. I discussed this with thepatient and he would prefer to go to [facility]. At 3:45 PM discussed the case with transfer line awaiting callback. Transfer line called back and notified us that the accepting physician is Dr. Burns who acceptthe patient to [facility]. Patient was notified is agreeable to plan. Lab Data Labs: Laboratory Results - last 24 hr 01/29/25 01/29/25 01/29/25 08:26 08:43 09:58 WBC 7.5 RBC 4.08 L Hgb 13.4 Hct 42.0 MCV 102.9 H MCH 32.8 H MCHC 31.9 L RDW Std Deviation 61.2 H RDW Coeff of Juan 16.3 H Plt Count 368 MPV 10.2 Immature Gran % (Auto) 0.300 Neut % (Auto) 62.1 Lymph % (Auto) 28.4 [place] % (Auto) 8.2 Eos % (Auto) 0.3 Baso % (Auto) 0.7 Absolute Neuts (auto) 4.7 Absolute Lymphs (auto) 2.12 Nucleated RBC % 0.7 PT Cancelled 18.8 H INR Cancelled 1.5 APTT Cancelled 32.5 Sodium 141 Potassium 4.4 Chloride 104 Carbon Dioxide 21.1 Anion Gap 16 H BUN 36 H Creatinine 2.47 H Estim Creat Clear Calc 41.81 L Est GFR (MDRD) Non-Af 32 L BUN/Creatinine Ratio 14.7 Glucose 130 H Calcium 9.1 Total Bilirubin 4.74 H Direct Bilirubin 3.02 H AST 20 ALT 10 Alkaline Phosphatase 462 H Troponin T High Sens 53 H D Troponin T Hi Sens 2 Hr 55 H* [place]roponin [place] 4[place] [address] H Total Protein 6.7 Albumin 3.5 Globulin 3.2 01/29/25 13:18 WBC RBC Hgb Hct MCV MCH MCHC RDW Std Deviation RDW Coeff of Juan Plt Count MPV Immature Gran % (Auto) Neut % (Auto) Lymph % (Auto) [place] % (Auto) Eos % (Auto) Baso % (Auto) Absolute Neuts (auto) Absolute Lymphs (auto) Nucleated RBC % PT INR APTT Sodium Potassium Chloride Carbon Dioxide Anion Gap BUN Creatinine Estim Creat Clear Calc Est GFR (MDRD) Non-Af BUN/Creatinine Ratio Glucose Calcium Total Bilirubin Direct Bilirubin AST ALT Alkaline Phosphatase Troponin T High Sens Troponin T Hi Sens 2 Hr Troponin T Hi Sens 4Hr 49 H NT pro BNP II Total Protein Albumin Globulin Radiography Diagnostic Testing: Clinical Impression(s) from Imaging Studies Abdomen/Pelvis CT 01/29/25 08:03 IMPRESSION: 1. Significantly limited examination. 2. Probable right lower lung opacities, which may reflect pneumonitis/pneumonia. 3. Large volume ascites. 4. Severe cardiomegaly. Reading Location: [facility] Chest X-Ray 01/29/25 10:07 IMPRESSION: No acute pulmonary process, stable cardiomegaly Reading Location: [facility] Abdomen Ultrasound 01/29/25 11:34 IMPRESSION: Hepatic fibrosis/steatosis. Large volume ascites. Consider diagnostic and therapeutic paracentesis for further evaluation as clinically indicated. Reading Location: [facility] Discharge Plan Triage Chief Complaint: Shortness of Breath ED Provider: Vargas Rea Dx/Rx/DC Orders Clinical Impression: Abdominal ascites, Abdominal pain, CHF exacerbation, Elevated bilirubin Prescriptions: No Action isosorbide dinitrate 20 mg tablet 20 mg PO Q8H bumetanide 1 mg tablet 1 mg PO BID Eliquis 5 mg tablet 5 mg PO BID Primary Care Provider: Care Physician,No Primary Referrals: Care Physician,No Primary [Primary Care Provider] - Print Language: Lithuanian Disposition Disposition: DC/Tx to Another Type of HCF What to do if you have Problems For any increased pain, shortness of breath, bleeding, nausea or vomiting, chestpain, or any unexpected problems, contact your Primary Care Provider. Call [facility] ([phone]) or report tothe closest Emergency Room. Call 911 if necessary. 01/29/25 1635 Cosigner Signature (if applicable): CC: No Primary Care Physician ~ Signed [facility]08-02-2025 Radiology Diagnostic study note [facility] Imaging Services [address] [place] [address] Abdomen Complete MR#: [id number] Acct: [id number] Name: CARLO MEDINA Rep #: [id number] : 1980 M 44 From: Rosie Vera MD PCP: Care Physician,No Primary Status: REG ER Study:Abdomen Complete Date of Exam: 08/24 Exam# [id number] Ordering Dr: Stewart Rea DO PROCEDURE: ABDOMEN COMPLETE N/A REASON FOR EXAM: ABD PAIN, ELEVATED BILI TECHNIQUE: ABDOMEN COMPLETE COMPARISON: Same day CT abdomen pelvis, prior limited abdominal ultrasound 01/04/2025. FINDINGS: Liver: Normal in size, with diffuse echogenicity suggesting fatty infiltration. The bile ducts are within normal limits. The main portal vein is patent with normal directional flow at midline. Gallbladder: No stones, sludge, wall thickening or tenderness. Common bile duct: Normal measuring 0.4 cm. Pancreas: Visualized portions are sonographically unremarkable. Kidneys: The right kidney measures 8.9 x 5.5 x 5.1 cm. The left kidney measures8.9 x 4.6 x 6.0 cm. Mild symmetric renal cortical scarring. No hydronephrosis. Spleen: Normal in size and echotexture measuring 9.2 x 3.4 x 2.7 cm. Aorta: Visualized abdominal aorta is of normal size. IVC: Visualized inferior vena cava is unremarkable. Peritoneal Findings: Large volume ascites. US/Abdomen Complete IMPRESSION: Hepatic fibrosis/steatosis. Large volume ascites. Consider diagnostic and therapeutic paracentesis for further evaluation as clinically indicated. Reading Location: [facility] CC: Dr. Vargas Rea DO; No Primary Care Physician ~ Paraprofessional Aide: Signed [facility]08-02-2025 Radiology Diagnostic study note [facility] Imaging Services [address] [place] [address] Abdomen/Pelvis W IV Cont ONLY MR#: [id number] Acct: [id number] Name: CARLO MEDINA Rep #: [id number] : 1980 M 44 From: Rosie Vera MD PCP: Care Physician,No Primary Status: REG ER Study:Abdomen/Pelvis W IV Cont ONLY Date of E xam: 01/29/25 Exam# [id number] Ordering Dr: Stewart Rea DO PROCEDURE: ABDOMEN/PELVIS W IV CONT ONLY 01/29/2025 REASON FOR EXAM: ABD PAIN, AND BLOATING TECHNIQUE: ABDOMEN/PELVIS W IV CONT ONLY Coronal and Sagittal reconstruction series were provided. CONTRAST: Isovue 370 VOLUME: 100 mL One or more dose reduction techniques were used (e.g., Automated exposure control, adjustment of the mA and/or kV according to patient size, use of iterative reconstruction technique. RADIATION DOSE SUMMARY: DLP: 700 mGycm COMPARISON: Limited abdominal ultrasound 01/04/2025. FINDINGS: Visualization is significantly limited by motion artifact and timing of contrastbolus (patient vomited during scan). Patient declined repeat scanning. Lung bases: Probable right lower lung opacities. Severe cardiomegaly. Liver: The liver is normal in size. Gallbladder: Present. Spleen: Normal-size. Pancreas: Unable to evaluate. Adrenals: Unable to evaluate. Kidneys: No nephrolithiasis. Bladder: Decompressed. Reproductive Organs: Poorly visualized. Bowel: The bowel loops are nondilated. Large volume abdominopelvic ascites. Nolarge volume free air. Unable to evaluate appendix. Lymph nodes: Unable to evaluate. Vasculature: Grossly normal caliber. Bones: Grossly unremarkable. CT/Abdomen/Pelvis W IV Cont ONLY IMPRESSION: 1. Significantly limited examination. 2. Probable right lower lung opacities, which may reflect pneumonitis/pneumonia. 3. Large volume ascites. 4. Severe cardiomegaly. Reading Location: [facility] CC: Dr. Vargas Rea DO; No Primary Care Physician ~ Paraprofessional Aide: Signed [facility]08-02-2025 Radiology Diagnostic study note [facility] Imaging Services [address] [place], [place] [address] Chest PA and Lateral MR#: [id number] Acct: [id number] Name: CARLO MEDINA Rep #: [id number] : 1980 M 44 From: Leticia Rivers MD PCP: Care Physician,No Primary Status: REG ER Study:Chest PA and Lateral Date of Exam: 01/29/25 Exam# [id number] Ordering Dr: Stewart Rea DO PROCEDURE: CHEST PA AND LATERAL 01/29/2025 REASON FOR EXAM: CHEST PAIN TECHNIQUE: CHEST PA AND LATERAL COMPARISON: 01/04/2025 FINDINGS: Hardware: EKG leads overlie the chest Heart: Stable cardiomegaly. Mediastinum: The mediastinal contour is unremarkable. Lungs: Lungs are expanded without a superimposed process, previously noted atelectasis has resolved Bones: Degenerative changes are identified within the thoracic spine. RAD/Chest PA and Lateral IMPRESSION: No acute pulmonary process, stable cardiomegaly Reading Location: [id number] CC: Dr. Vargas Rea DO; No Primary Care Physician ~ Paraprofessional Aide: Signed [facility]07-28-2025 History of Present illness Narrative* Mallika Quiles, [facility] - 01/24/2025 7:12 AM EDT TRANSITION CARE MANAGEMENT (TCM) HEART FAILURE PHARMACY [...] (Patient to be counseled on new medications iffull medication review completed) Last documented LVEF: LV Ejection Fraction (%) Date Value 01/21/2025 15 Last documented weight: Last Wt 01/21/25 77.1 kg (169 lb 15.6 oz) Patient was sent a message via Plan Me Up including the link to the [facility] Heart Failure education video: No - BUXhart is pending Initial contact with patient post discharge, spoke to patient, and verified that any applicable caregiver is active in patient's medical care. Patient identified by name and . Summary: -Pt discharged from [facility] on 01/21/25. -Medication review done Declined at [...] HFrEF (heart failure with reduced ejection fraction) ([facility]) Date Noted: 10/21/2024 History of left bundle branch block (LBBB) Date Noted: 06/19/2024 Essential hypertension Date Noted: 06/08/2024 CKD (chronic kidney disease) Date Noted: 06/08/2024 Personal history of DVT (deep vein thrombosis) Date Noted: 01/20/2025 NICM (nonischemic cardiomyopathy) ([facility]) Date Noted: 01/21/2025 Scleral icterus Date Noted: 01/21/2025 Reason for Hospitalization: Carlo Medina is a 44 year old male with pmhx of HFrEF, CKD 3b, cirrhosis, HTN, LBBB, DVT who presented to the ER with complaint of SOB/CARRERA, orthopnea, abdominal bloating, lower extremity edema. Hospital course: Pt admitted to stepdown. Started on IV lasix. Pt refused hydralazine, reported he felt unwell on itand stopped it. EP was consulted for consideration of ICD placement. As he has not been on GDMT for3 continuous months, has not had regular follow [...] however the patient refused. Preferred pharmacy: e- [facility]/pharmacy #[id number] [place] [address] - [address] [facility] - [phone] [place] [address] Estimated Creatinine Clearance: 40.9 mL/min (A) (based on SCr of 2.46 mg/dL (H)). Estimated Glomerular Filtration Rate (mL/min/1.73m ) Date Value 01/20/2025 32 (L) Additional follow up: Next 5 Appointments None Interventions Made: None Pharmacist Recommendations Made None Care Coordination: None at this time Time spent on patient: 0-15 minutes Mallika Quiles RPh January 24, 2025 7:12 AM documented in [facility] NoteHNO ID: [id number] Author: MALLIKA QUILES RPh Service: Pharmacy Author [...] oz) Patient was sent a message via Plan Me Up including the link to the [facility] Heart Failure education video: No - MyChart is pending Initial contact with patient post discharge, spoke to patient, and verified that any applicable caregiver is active in patient's medical care. Patient identified by name and . Summary: -Pt discharged from [facility] on 01/21/25. -Medication review done Declined at [...] however the patient refused. Preferred pharmacy: e- [facility]/pharmacy #[id number] [place] [address] - [address] [place] [address] - [phone] [place] [address] Estimated Creatinine Clearance: 40.9 mL/min (A) (based on SCr of 2.46 mg/dL (H)). Estimated Glomerular Filtration Rate (mL/min/1.73m?) (more content not included)...[facility]07-28-2025 NotePatient Outreach (PHRXRF) CARLO MEDINA ([id number]) 1980 M Date Time Provider Department 01/24/25 MALLIKA QUILES PHRXRF During your visit today, we recorded the following information about you: Mallika Quiles [facility] 01/24/2025 2:21 PM Signed TRANSITION CARE MANAGEMENT [...] oz) Patient was sent a message via Plan Me Up including the link to the [facility] Heart Failure education video: No - BUXhart is pending Initial contact with patient post discharge, spoke to patient, and verified that any applicable caregiver is active in patient's medical care. Patient identified by name and . Summary: -Pt discharged from [facility] on 01/21/25. -Medication review done Declined at [...] thrombosis) Date Noted: 01/20/2025 NICM (nonischemic cardiomyopathy) ([facility]) Date Noted: 01/21/2025 Scleral icterus Date Noted: [...] refused. Preferred pharmacy: e- [facility]/pharmacy #[id number] [place] [address] - [address] [facility] - [phone] [address] [address] [facility] [address] P (more content not included)...[facility]07-25-2025 NoteHNO ID: [id number] Author: GABY GUIDRY RPh Service: Pharmacy Author [...] NO Aldosterone antagonist NO SGLT2i NO Gaby Guidry RPh January 21, 2025 1:10 PM Pager: [phone] Medication List CONTINUE taking these medications apixaban 5 mg tab(s) Commonly known as: ELIQUIS isosorbide dinitrate 20 mg tablet Commonly known as: ISORDIL STOP taking these medications hydrALAZINE 100 mg tablet Commonly known as: APRESOLINE losartan 50 mg tablet [facility] known [facility] NoteHNO ID: [id number] Author: MELISSA ORDAZ APRN.CNP Service: Cardiovascular Medicine Author Type: Nurse Practitioner Type: Progress Notes Filed: 01/21/2025 11:51 Note Text: [facility] CARDI[facility]ASCULAR [facility]ICINE PROGRESS NOTE Carlo Medina [id number] PRIMARY SERVICE: A, Hvi Clinical Senior Validation Engineer/Pa HOSPITAL DAY: # 2 INTERVAL HISTORY Less edematous today Resume cozaar Addendum: 11:46 AM Patient refusing losartan, states [...] Intake/Output Summary (Last 24 hours) at 01/21/2025 09 Last data filed at 01/21/2025 09 Gross per 24 hour Intake 608 ml Output 1450 ml Net -842 ml EKG: Most recent reviewed TELE: most recent recordings reviewed PHYSICAL EXAM: 01/20/25204501/21/2521401/21/25 0601/21/25 09 BP: 115/84 123/86 127/94 Pulse: 95 99 [...] follow up. To Do/Issues to communicate: Add cozaleena Refusing potassium supplements. Stated that's not what [...] of left bundle bran (more content not included)...[facility]07-25-2025 NoteHNO ID: [id number] Author: CORA SÁNCHEZ MD Service: Cardiovascular Medicine Author Type: Physician Type: Plan of Care Filed: 01/21/2025 06:30 Note Text: Patient has been refusing blood draws overnight. He wants labs to be drawn a bit late this morning. Lasix to be given later accordingly after the potassium results as his potassium was low on yesterday's labs.[facility] 01-20-2025 NoteHNO ID: [id number] Author: CHRISTOPHER GRIMES, ? Service: ? Author Type: Anodize Machine Operator Type: Plan of Care Filed: 01/20/2025 09:02 [...] questions, please reach out to your medication product safety coordinator. Thank you (Prices may vary at different pharmacy locations, this is the cost at [facility]07-23-2025 NoteHNO ID: [id number] Author: MANUELA SANTOS RT(R) Service: ? Author Type: Rock Crusher Operator Type: Progress Notes Filed: 01/19/2025 17:37 Note [...] PATIENT PRESENTS WITH AN IMPLANTABLE OR ATTACHED DINNER COOK: No RADIOLOGY DEPARTMENT: Ultrasound PERIPHERAL IV DATA: Not applicable SIGNED BY: RT Cristine(R) January 19, 2025 5:37 [facility]07-23-2025 [id number] (AGENT OF COVID-19) RNA: Not detected INFLUENZA A RNA: Not detected INFLUENZA B RNA: Not detected RESPIRATORY SYNCYTIAL VIRUS (RSV) RNA: Not detectedHolzer Medical Center – JacksonComment on above:Performed By: #### [id number] ####[facility] LABCLIA [id number] [address] [address] [facility] [id number] Discharge summary Author Anshul Lemus [facility] Note Date/Time January 10, 2025 8:50 am [facility] Medical Records Department [address] [place] [address] Discharge Summary 01/10/25 0841 MR#: [id number] Acct: [id number] Name: CAROL MEDINA Rep #:[id number] : 1980 44 From: Anshul Lemus DO PCP: Care Physician,No Primary Status :ADM IN Location: [facility] [id number] Providers Date of Admission: 01/04/25 Primary [...] Consult: cardiomyopathy. Declining AICD/pacemaker. EMERGENT Consult: No MD Notified: Yes Date Notified: 01/08/25 Time Notified: [...] larger hospital that would do that including [facility], [facility] Et[facility]. Plan Feet edema: More notably on [...] History of noncompliance: Per previous documentation from [facility] as well [facility]. 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 Anddiscussed with him in the presence that [...] Patient will follow-up with cardiology here at [facility] as he states he wishes to [...] is larger that perform those procedures including [facility], [facility], [facility], [facility]. If you have issues in regards to you passing out and having no recollection of the event, irregular heartbeat, call [address] [facility] emergency room. As we discussed, you are at high risk of because of your weak heart and your abnormal heart rhythm (second-degree heart block Mobitz type II). Discharge Orders/Prescriptions Prescriptions: Continued isosorbide dinitrate 20 mg tablet 20 mg PO Q8H bumetanide 1 mg tablet 1 mg PO BID Eliquis 5 mg tablet 5 mg PO BID Referrals / Follow Up: [facility] [Provider Group] - Within 1 Month Care Physician,No Primary [Primary Care Provider] - [facility] [Outside] - Within 2 Weeks Deja Gregorio MD [Med Staff - Active Staff] - Disposition Disposition (needs filled in before D/C Order can be placed): Home, Self Care Charges/Coding Visit Charges Inpatient E&M: 07464 Disch Hosp >30min 01/10/25 0850 <Electronically signed by Anshul Lemus DO> Cosigner Signature (if applicable): CC: Dr. Anshul Lemus DO; Dr. Deja Gregorio MD; No Primary Care Physician~ Signed [facility] Work Phone: 1(816) 292-259207-14-2025 Progress note Author Anshul Lemus [facility] Note Date/Time January 10, 2025 8:41 am [facility] Medical Records Department [address] [place] [address] Progress Note - Hospitalist 01/10/25810 MR#: [id number] Acct: [id number] Name: CARLO MEDINA Rep #:[id number] : 1980 44 From: Anshul Lemus DO PCP: Care Physician,No Primary Status :ADM IN Location: [place] [address] Reason for Visit Chief Complaint: Shortness of [...] larger hospital that would do that including [facility], [facility] Etc. PLAN: Plan Feet edema: More notably [...] History of noncompliance: Per previous documentation from [facility] as well [facility]. 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 Anddiscussed with him in the presence that [...] Cosigner Signature (if applicable): CC: ~ Signed [facility] Work Phone: 1(103) 393-759707-14-2025 Discharge summary [facility] Medical Records Department [address] [place] [address] Discharge Summary 01/10/25840 MR#: [id number] Acct: [id number] Name: CARLO MEDINA Rep #:[id number] : 1980 44 From: Anshul Lemus DO PCP: Care Physician,No Primary Status :ADM IN Location: [facility] [id number]- 1 Providers Date of Admission: 01/04/25 Primary [...] larger hospital that would do that including [facility], [facility] Etc. Plan Feet edema: More notably on [...] History of noncompliance: Per previous documentation from [facility] as well [facility]. 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 Anddiscussed with him in the presence that [...] Patient will follow-up with cardiology here at [facility] as he states he wishes to [...] is larger that perform those procedures including [facility], [facility], [facility], [facility]. If you have issues in regards to you passing out and having no recollection of the event, irregular heartbeat, call [address] [facility] emergency room. As we discussed, you are at high risk of because of your weak heart and your abnormal heart rhythm (second-degree heart block Mobitz type II). Discharge Orders/Prescriptions Prescriptions: Continued isosorbide dinitrate 20 mg tablet 20 mg PO Q8H bumetanide 1 mg tablet 1 mg PO BID Eliquis 5 mg tablet 5 mg PO BID Referrals / Follow Up: [facility] [Provider Group] - Within 1 Month Care Physician,No Primary [Primary Care Provider] - [facility] [Outside] - Within 2 Weeks Deja Gregorio MD [Med Staff - Active Staff] - Disposition Disposition (needs filled in before D/C Order can be placed): Home, Self Care Charges/Coding Visit Charges Inpatient E&M: 93599 Disch Hosp >30min 01/10/25 0850 Cosigner Signature (if applicable): CC: Dr. Anshul Lemus DO; Dr. Deja Gregorio MD; No Primary Care Physician~ Signed [facility]07-14-2025 [facility] Medical Records Department [address] [place] [address] Discharge Summary 01/10/25 0841 MR#: [id number] Acct: [id number] Name: CARLO MEDINA Rep #: [id number] : 1980 44 From: Anshul Lemus DO PCP: Care Physician,No Primary Status:ADM IN Location: [facility] [id number] Providers Date of Admission: 01/04/25 Primary Care [...] larger hospital that would do that including [facility], [facility] Plan Feet edema: More notably on [...] History of noncompliance: Per previous documentation from [facility] as well as [facility]. Patient is steadfast in regards to doing only what he wants to do despite (more content not included)...[facility]07-14-2025 Progress note [facility] Medical Records Department [address] [place] [address] Progress Note - Hospitalist 01/10/25 08 MR#: [id number] Acct: [id number] Name: CARLO MEDINA Rep #:[id number] : 1980 44 From: Anshul Lemus DO PCP: Care Physician,No Primary Status :ADM IN Location: [place] [address] Reason for Visit Chief Complaint: Shortness of [...] larger hospital that would do that including [facility], [facility] PLAN: Plan Feet edema: More notably [...] History of noncompliance: Per previous documentation from [facility] as well [facility]. 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 Anddiscussed with him in the presence that [...] Cosigner Signature (if applicable): CC: ~ Signed [facility]07-13-2025 Progress note Author Anshul Lemus [facility] Note Date/Time January 09, 2025 12:2 8pm [facility] Medical Records Department [address] [place] [address] Progress Note - Hospitalist 01/09/25 0748 MR#: [id number] Acct: [id number] Name: CARLO MEDINA Rep #:[id number] : 1980 44 From: Anshul Lemus DO PCP: Care Physician,No Primary Status :ADM IN Location: [place] [address] Reason for Visit Reason for Visit: Diagnoses [...] History of noncompliance: Per previous documentation from [facility] as well [facility]. Patient is steadfast in regards to doing [...] if he had reservations about going to [facility], or much of his care had been [...] been here. Charges/Coding Visit Charges Inpatient E&M: 15668 Subs Hosp L3 01/09/25 1228 <Electronically signed by Anshul Lemus DO> Cosigner Signature (if applicable): CC: ~ Signed [facility] Work Phone: 1(827) 580-100307-13-2025 Progress note [facility] Medical Records Department [address] [place] [address] Progress Note - Hospitalist 01/09/25 0748 MR#: [id number] Acct: [id number] Name: DANNA MEDINAMarguerite Vasquez Rep #:[id number] : 1980 44 From: Anshul Lemus DO PCP: Care Physician,No Primary Status :ADM IN Location: [place] [address] Reason for Visit Reason for Visit: Diagnoses [...] History of noncompliance: Per previous documentation from [facility] as well [facility]. Patient is steadfast in regards to doing [...] if he had reservations about going to [facility], or much of his care had been [...] very willing to discuss with his girlfri end and his siblings if he would permit. [...] been here. Charges/Coding Visit Charges Inpatient E&M: 61792 Subs Hosp L3 01/09/25 1228 Cosigner Signature (if applicable): CC: ~ Signed [facility]07-12-2025 Progress note Author Anshul Lemus [facility] Note Date/Time January 08, 2025 8:44 am [facility] Medical Records Department [address] [place] [address] Progress Note - Hospitalist 01/08/25 0750 MR#: [id number] Acct: [id number] Name: CARLO MEDINA Rep #:[id number] : 1980 44 From: Anshul Lemus DO PCP: Care Physician,No Primary Status :ADM IN Location: [place] [address]- 1 Reason for Visit Reason for Visit: [...] cardiac needs at this point time so figueroa hold off on cardiology consultation at present. [...] History of noncompliance: [facility] well [facility] Patient is steadfast in [...] if he had reservations about going to [facility], or much of his care had been or [facility] where he had been recently. I told him that we could gethim into another hospital to be seen by other specialists. He continued to decline any transfer at this time. Greater than 50 minutes spent discussing with the patient, nursing as above. Charges/Coding Visit Charges Inpatient E&M: 86541 Subs Hosp L3 01/08/25 0844 <Electronically signed by Anshul Lemus DO> Cosigner Signature (if applicable): CC: ~ Signed [facility] Work Phone: 1(574) 970-188607-12-2025 Progress note [facility] Medical Records Department [address] [place] [address] Progress Note - Hospitalist 01/08/25 0750 MR#: [id number] Acct: [id number] Name: CARLO MEDINA Rep #:[id number] : 1980 44 From: Anshul Lemus DO PCP: Care Physician,No Primary Status :ADM IN Location: [place] [address] Reason for Visit Reason for Visit: Diagnoses [...] History of noncompliance: Per previous documentation from [facility] as well [facility]. Patient is steadfast in regards to doing [...] if he had reservations about going to [facility], or much of his care had been or [facility] where he had been recently. I told him thatwe could gethim into another hospital to be seen by other specialists. He continued to decline any t ransfer at this time. Greater than 50 minutes spent discussing with the patient, nursing as above. Charges/Coding Visit Charges Inpatient E&M: 42270 Subs Hosp L3 01/08/25 0844 Cosigner Signature (if applicable): CC: ~ Signed [facility]07-11-2025 Progress note Author Anshul Lemus [facility] Note Date/Time January 07, 2025 4:40 pm [facility] Medical Records Department [address] [place] [address] Progress Note - Hospitalist 01/07/25802 MR#: [id number] Acct: [id number] Name: CARLO MEDINA Rep #:[id number] : 1980 44 From: Anshul Lemus DO PCP: Care Physician,No Primary Status :ADM IN Location: [place] [address] Reason for Visit Reason for Visit: Diagnoses [...] History of noncompliance: Per previous documentation from [employer] as well [facility]. Patient is steadfast in regards to doing [...] the floor. Charges/Coding Visit Charges Inpatient E&M: 40532 Subs Hosp 01/07/25 1045 <Electronically signed by Anshul Lemus DO> Cosigner Signature (if applicable): CC: ~ Signed ADDENDUM by Dr. Anshul Lemus DO on 01/07/25 at [address] Campo given his [...] Cosigner Signature (if applicable): cc: ~* Signed [facility] Work Phone: 1(258) 968-941007-11-2025 Progress note [facility] Medical Records Department [address] [place] [address] Progress Note - Hospitalist 01/07/25 0803 MR#: [id number] Acct: [id number] Name: CARLO MEDINA Rep #:[id number] : 1980 44 From: Anshul Lemus DO PCP: Care Physician,No Primary Status :ADM IN Location: [place] [address] Reason for Visit Reason for Visit: Diagnoses [...] History of noncompliance: Per previous documentation from [facility] as well [facility]. Patient is steadfast in regards to doing [...] the floor. Charges/Coding Visit Charges Inpatient E&M: 29702 Subs Hosp 01/07/25 1045 Cosigner Signature (if applicable): CC: ~ Signed ADDENDUM by Dr. Anshul Lemus, DO on 01/07/25 at [address] Campo given his [...] cc: ~* Signed ADDENDUM by Dr. Anshul Lemus, DO on 01/07/25 at 1640 Addendum Patient [...] Cosigner Signature (if applicable): cc: ~* Signed [facility]07-11-2025 Consult note Author Lavon Campo [facility] Note Date/Time January 07, 2025 2:37 pm [facility] Medical Records Department [address] [place] [address] Consultation - Cardiology 01/07/25 1336 MR#: [id number] Acct: [id number] Name: CARLO MEDINA Rep #:[id number] : 1980 44 From: Lavon Campo MD PCP: Care Physician,No Primary Status :ADM IN Location: [place] [address] Assessment & Plan Assessment/Plan (1) HFrEF (heart [...] and SGLT2 Recommend transferring the patient to [facility] for BiV evaluation. Noncompliance is a major [...] time. Has had numerous hospitalizations over at [facility] and recently was over at [facility] in September. It is documented throughout his charts at [facility] as well as [facility] that he has a history of noncompliance. [...] second degree av block with intermittent CHB. [facility] Medical History Kidney disease Non-smoker Irregular heart [...] applicable): CC: No Primary Care Physician~ Signed [facility] Work Phone: 1(392) 698-260507-11-2025 Consult note [facility] Medical Records Department [address] [place] [address] Consultation - Cardiology 01/07/25 1336 MR#: [id number] Acct: [id number] Name: ADAMCARLO L Rep #:[id number] : 1980 44 From: Lavon Campo MD PCP: Care Physician,No Primary Status :ADM IN Location: [place] [address] Assessment & Plan Assessment/Plan (1) HFrEF (heart [...] and SGLT2 Recommend transferring the patient to [facility] for BiV evaluation. Noncompliance is a major [...] time. Has had numerous hospitalizations over at [facility] [place] and recently was over at [facility] in September. It is documented throughout his charts at [facility] as well as [facility] that he has a history of noncompliance. [...] second degree av block with intermittent CHB. [facility] Medical History Kidney disease Non-smoker Irregular heart [...] applicable): CC: No Primary Care Physician~ Signed [facility]07-10-2025 Progress note Author Anshul Lemus [facility] Note Date/Time January 06, 2025 2:08 pm [facility] Medical Records Department [address] [place] [address] Progress Note - Hospitalist 01/06/2523 MR#: [id number] Acct: [id number] Name: CARLO MEDINA Rep #:[id number] : 1980 44 From: Anshul Lemus DO PCP: Care Physician,No Primary Status :ADM IN Location: [place] [address] Reason for Visit Reason for Visit: Diagnoses [...] % (Auto) 65.7, Lymph % (Auto) 25.5, [place] % (Auto) 7.4, Eos % (Auto) 0.6, [...] % (Auto) 61.6, Lymph % (Auto) 28.0, [place] % (Auto) 8.9, Eos % (Auto) 1.0, [...] History of noncompliance: Per previous documentation from [facility] as well [facility]. Patient is steadfast in [...] case management. Charges/Coding Visit Charges Inpatient E&M: 72265 Subs Hosp L2 01/06/25 2605 <Electronically signed by Anshul Lemus DO> Cosigner Signature (if applicable): CC: ~ Signed [facility] Work Phone: 1(731) 949-909507-10-2025 Progress note [facility] Medical Records Department [address] [place] [address] Progress Note - Hospitalist 01/06/25822 MR#: [id number] Acct: [id number] Name: CARLO MEDINA Rep #:[id number] : 1980 44 From: Anshul Lemus DO PCP: Care Physician,No Primary Status :ADM IN Location: [place] [address] Reason for Visit Reason for Visit: Diagnoses [...] % (Auto) 65.7, Lymph % (Auto) 25.5, [place] % (Auto) 7.4, Eos % (Auto) 0.6, [...] % (Auto) 61.6, Lymph % (Auto) 28.0, [place] % (Auto) 8.9, Eos % (Auto) 1.0, [...] History of noncompliance: Per previous documentation from [facility] as well [facility]. Patient is steadfast in [...] case management. Charges/Coding Visit Charges Inpatient E&M: 36493 Subs Hosp L2 01/06/25 1408 Cosigner Signature (if applicable): CC: ~ Signed [facility]07-09-2025 Progress note Author Anshul Lemus [facility] Note Date/Time January 05, 2025 2:56p m [facility] Medical Records Department [address] [place] [address] Progress Note - Hospitalist 01/05/25804 MR#: [id number] Acct: [id number] Name: CARLO MEDINA Rep #:[id number] : 1980 44 From: Anshul Lemus DO PCP: Care Physician,No Primary Status :ADM IN Location: [place] [id number]- 1 Reason for Visit Reason for Visit: [...] % (Auto) 59.5, Lymph % (Auto) 30.6, [place] % (Auto) 9.1, Eos % (Auto) 0.3, [...] Sens 45 H, [place] [address] H, Total Protein 6.8, Albumin 3.6, Globulin 3.2, Lipase 15 01/04/25 11:20: Troponin T Hi Sens 2 Hr 42 H 01/04/25 13:36: Troponin T Hi Sens 4Hr 45 H Radiography Diagnostic Testing: Radiology Impression Chest X-Ray 01/04/25 08:25 IMPRESSION: Bibasilar atelectasis or pneumonia. Reading Location: [facility] Abdomen Ultrasound 01/04/25 11:03 IMPRESSION: 1. Ascites. 2. Fatty infiltration of the liver. Reading Location: [facility] Echocardiogram 01/04/25 14:32 Interpretation Summary Severely dilated [...] cardiac needs at this point time so figueroa hold off on cardiology consultation at present. [...] History of [facility]: [facility] Patient is steadfast in regards to doing [...] his cardiomyopathy. Charges/Coding Visit Charges Inpatient E&M: 01961 Subs Hosp L2 01/05/25 4333 <Electronically signed by Anshul Lemus DO> Cosigner Signature (if applicable): CC: ~ Signed [facility] Work Phone: 1(465) 720-347807-09-2025 Progress note [facility] Medical Records Department [address] [place] [address] Progress Note - Hospitalist 01/05/25804 MR#: [id number] Acct: [id number] Name: CARLO MEDINA Rep #:[id number] : 1980 44 From: Anshul Lemus DO PCP: Care Physician,No Primary Status :ADM IN Location: [place] [address] Reason for Visit Reason for Visit: Diagnoses [...] % (Auto) 59.5, Lymph % (Auto) 30.6, [place] % (Auto) 9.1, Eos % (Auto) 0.3, [...] HighSens 45 H, [place] [address] H, Total Protein 6.8, Albumin 3.6, Globulin 3.2, Lipase 15 01/04/25 11:20: Troponin T Hi Sens 2 Hr 42 H 01/04/25 13:36: Troponin T Hi Sens 4Hr 45 H Radiography Diagnostic Testing: Radiology Impression Chest X-Ray 01/04/25 08:25 IMPRESSION: Bibasilar atelectasis or pneumonia. Reading Location: [facility] Abdomen Ultrasound 01/04/25 11:03 IMPRESSION: 1. Ascites. 2. Fatty infiltration of the liver. Reading Location: [facility] Echocardiogram 01/04/25 14:32 Interpretation Summary Severely dilated [...] History of noncompliance: Per previous documentation from [facility] as well [facility]. Patient is steadfast in regards to doing [...] his cardiomyopathy. Charges/Coding Visit Charges Inpatient E&M: 96420 Subs Hosp L2 01/05/25 1456 Cosigner Signature (if applicable): CC: ~ Signed [facility]07-08-2025 Discharge summary Author Deborah Penaloza [facility] Note Date/Time January 04, 2025 4:15p m [facility] Medical Records Department [address] [place] [address] Emergency Department Summary 01/04/25 MR#: [id number] Acct: [id number] Name: CARLO MEDINA Rep #:[id number] : 1980 44 From: Deborah Ravi PCP: Care Physician,No Primary Status :ADM IN Location: [address] History of Present Illness Chief Complaint: [...] increased swelling of his legs. He states jaqueline receives his care through [facility] because of his insurance but has had [...] fluid overload. Note from inpatient encounter at [facility] on 10/26/2024 she is at patient has history of heart failure with reduced ejection fraction, cardiogenic shock and healthcare associated pneumonia as well as DVT. He has CKD stage IIIb as well as cirrhosis. There is a reported history of left bundle branch block, hasissue with compliance of therapy and at that time wanted to be discharged home . Reported ejection fraction 15%. [facility] Medical History (Updated 01/04/25 @ 16:15 by [...] appears significantly fluid overloaded. Discharge summary from [facility] on 10/17 through 10/26 reviewed. Patient was [...] went to cardiogenic shock was admitted to [facility]. There he refused IV therapies and base of intervention such as [place] or right heart catheterization. Lab work shows elevation of his creatinine of 2.03 with mild elevation of his BUN of 30. His creatinine baseline appears to be 2.0 per [facility] documentation. He has elevation of his bilirubin [...] % (Auto) 59.5 Lymph % (Auto) 30.6 [place] % (Auto) 9.1 Eos % (Auto) 0.3 [...] 4Hr 45 [place] [address] H Total Protein 6.8 Albumin 3.6 Globulin 3.2 Lipase 15 Radiography Diagnostic Testing: Clinical Impression(s) from Imaging Studies Chest X-Ray 01/04/25 08:25 IMPRESSION: Bibasilar atelectasis or pneumonia. Reading Location: [facility] Abdomen Ultrasound 01/04/25 11:03 IMPRESSION: 1. Ascites. 2. Fatty infiltration of the liver. Reading Location: [facility] Rhythm Strip Rhythm Strip: Sinus bradycardia Rate: [...] Management Discussion w/another healthcare provider: Hospitalist and Biology Department Chair (Cardiology-felt that patient was fine to be diuresed admitted to medicine service) Discharge Plan Dx/Rx/DC Orders Clinical Impression: CKD stage 3b, GFR 30-44 ml/min, HFrEF (heart failure with reduced ejection fraction), Elevated bilirubin, Abdominal ascites Disposition Disposition: Acute Care Hospital [facility] Discharge Date/Time: 01/04/25 14:00 What to do if you have Problems For any increased pain, shortness of breath, bleeding, nausea or vomiting, chestpain, or any unexpected problems, contact your Primary Care Provider. Call [facility] ([phone]) or report to the closest Emergency Room. Call 911 if necessary. 01/04/25 1555 <Electronically signed by Deborah Penaloza DO> Cosigner Signature (if applicable): CC: No Primary Care Physician ~ Signed [facility] Work Phone: 1(501) 206-961207-08-2025 Discharge summary [facility] Medical Records Department [address] [place] [address] Emergency Department Summary 01/04/25 MR#: [id number] Acct: [id number] Name: CARLO MEDINA Rep #:[id number] : 1980 44 From: Deborah Ravi PCP: Care Physician,No Primary Status :ADM IN Location: [place] [address] HPI History of Present Illness Chief Complaint: [...] legs. He states henormallyreceives his care through [facility] because of his insurance but has had a hard time following up and getting to appointments because of transportation andthe distance. States he has been compliant with his medications. Is in the process of trying to establish down here in [place]. Denies any chest pain. Denies any fever or chills. Denies any change in urination. Patient does notknow what triggered his fluid overload. Note from inpatient encounter at [facility] on 10/26/2024 she is at patient has history of heartfailure with reduced ejection fraction, cardiogenic shock and healthcare associated pneumonia as well as DVT. He has CKD stage IIIb as well as cirrhosis. There is a reported history of left bundle branch block, hasissue with compliance of therapy and at that time wanted to be discharged home . Reported ejection fraction 15%. [facility] Medical History (Updated 01/04/25 @ 16:15 by [...] appears significantly fluid overloaded. Discharge summary from [facility] on 10/17 through 10/26 reviewed. Patient was [...] went to cardiogenic shock was admitted to [facility]. There he refused IV therapies and base of intervention such as [place] or right heart catheterization. Lab work shows elevation of his creatinine of 2.03 with mild elevation of his BUN of 30. His creatinine baseline appears to be 2.0 per [facility] documentation. He has elevation of his bilirubin [...] % (Auto) 59.5 Lymph % (Auto) 30.6 [place] % (Auto) 9.1 Eos % (Auto) 0.3 [...] 4Hr 45 [place] [address] H Total Protein 6.8 Albumin 3.6 Globulin 3.2 Lipase 15 Radiography Diagnostic Testing: Clinical Impression(s) from Imaging Studies Chest X-Ray 01/04/25 08:25 IMPRESSION: Bibasilar atelectasis or pneumonia. Reading Location: [facility] Abdomen Ultrasound 01/04/25 11:03 IMPRESSION: 1. Ascites. 2. Fatty infiltration of the liver. Reading Location: [facility] Rhythm Strip Rhythm Strip: Sinus bradycardia Rate: [...] Management Discussion w/another healthcare provider: Hospitalist and Biology Department Chair (Cardiology-felt that patient was fine to be diuresed admitted to medicine service) Discharge Plan Dx/Rx/DC Orders Clinical Impression: CKD stage 3b, GFR 30-44 ml/min, HFrEF (heart failure with reduced ejection fraction), Elevated bilirubin, Abdominal ascites Disposition Disposition: Acute Care Hospital [facility] Discharge Date/Time: 01/04/25 14:00 What to do if you have Problems For any increased pain, shortness of breath, bleeding, nausea or vomiting, chestpain, or any unexpected problems, contact your Primary Care Provider. Call [facility] ([phone]) or report tothe closest Emergency Room. Call 911 if necessary. 01/04/25 1615 Cosigner Signature (if applicable): CC: No Primary Care Physician ~ Signed [facility]07-08-2025 History and physical note Author Anshul Lemus [facility] Note Date/Time January 04, 2025 2:06p m [facility] Medical Records Department [address] [place] [address] H&P Exam - Hospitalist 01/04/25 1351 MR#: [id number] Acct: [id number] Name: CARLO MEDINA Rep #:[id number] : 1980 44 From: Anshul Lemus DO PCP: Care Physician,No Primary Status :ADM IN Location: [place] [address] HPI - General General Date of Service: [...] time. Has had numerous hospitalizations over at [facility] and recently was over at [facility] in September. It is documented throughout his charts at [facility] as well as [facility] that he has a history of noncompliance. [...] still wants time to think about it. [facility] Medical History (Updated 01/04/25 @ 14:[address] Anshul Lemus, DO) CKD (chronic kidney disease) Cardiomyopathy Left [...] % (Auto) 59.5, Lymph % (Auto) 30.6, [place] % (Auto) 9.1, Eos % (Auto) 0.3, [...] Sens 45 H, [place] [address] H, Total Protein 6.8, Albumin 3.6, Globulin 3.2, Lipase 15 01/04/25 11:20: Troponin T Hi Sens 2 Hr 42 H EKG Initial EKG: Attestation: I personally reviewed and interpreted this EKG as follows: EKG Rhythm Intrepretation: Sinus Bradycardia Imaging Radiology Impression Chest X-Ray 01/04/25 08:25 IMPRESSION: Bibasilar atelectasis or pneumonia. Reading Location: [facility] Abdomen Ultrasound 01/04/25 11:03 IMPRESSION: 1. Ascites. 2. Fatty infiltration of the liver. Reading Location: [facility] Assessment & Plan Assessment/Plan (1) HFrEF (heart [...] History of noncompliance: Per previous documentation from [facility] as well [facility]. Patient is steadfast in regards to doing [...] his cardiomyopathy. Charges/Coding Visit Charges Inpatient E&M: 19199 Init Hosp L3 01/04/25 1403 <Electronically signed by Anshul Lemus DO> Cosigner Signature (if applicable): CC: Dr. Anshul Lemus, ; No Primary Care Physician~ Signed [facility] Work Phone: 1(802) 145-229507-08-2025 Evaluation note* Diagnosis Onset Date Resolution Status Admit Date CKD stage 3b, GFR 30-44 ml/min acute January 04, 2025 1:40pm Elevated bilirubin acute January 042024 1:40pm Heart block acute January 04 1:40pm HFrEF (heart failure with re duced ejection fraction) acute January 04 1:40pm Hypokalemia acute January 04 1:40pm [facility] Work Phone: 1(625) 650-404207-08-2025 Evaluation note* Diagnosis Onset Date Resolution Status Admit Date Heart block acute January 04 1:40pm Hypokalemia resolved January 04 1:40pm CKD stage 3b, GFR 30-44 ml/min inact dai January 04, 2025 1:40pm Elevated bilirubin inactive January 042024 1:40pm HFrEF (heart failure with reduced ejection fraction) inactive January 04, 2025 1:40pm [facility] Work Phone: 1(584) 104-191507-08-2025 History and physical note [facility] Medical Records Department [address] [place] [address] H&P Exam - Hospitalist 01/04/25 1351 MR#: [id number] Acct: [id number] Name: CARLO MEDINA Rep #:[id number] : 1980 44 From: Anshul Lemus DO PCP: Care Physician,No Primary Status :ADM IN Location: [facility] [id number] HPI - General General Date of Service: 01/04/25 Chief Complaint: Shortness of breath. Edema. HPI Narrative CAROL MEDINA, is a 44 M who presents with progressive shortness of breath and edema. Patient is [id number] male with a history of nonischemic cardiomyopathy with an ejection fraction of 20%. States that he had a left heart catheterization that showed no obstructive coronary disease. They have attempted right heart catheterization but was unsuccessful and the patient declined further attempts. Resents with increased weight gain of about 10 pounds with period time. Has had numerous hospitalizations over at [facility] and recently was over at [facility] in September. It is documented throughout his charts at [facility] as well as [facility] that he has a history of noncompliance. [...] he stillwants time to think about it. [facility] Medical History (Updated 01/04/25 @ 14:00 by [...] % (Auto) 59.5, Lymph % (Auto) 30.6, [place]in % (Auto) 9.1, Eos % (Auto) 0.3, [...] HighSens 45 H, [place] [address] H, Total Protein 6.8, Albumin 3.6, Globulin 3.2, Lipase 15 01/04/25 11:20: Troponin T Hi Sens 2 Hr 42 H EKG Initial EKG: Attestation: I personally reviewed and interpreted this EKG as follows: EKG Rhythm Intrepretation: Sinus Bradycardia Imaging Radiology Impression Chest X-Ray 01/04/25 08:25 IMPRESSION: Bibasilar atelectasis or pneumonia. Reading Location: [facility] Abdomen Ultrasound 01/04/25 11:03 IMPRESSION: 1. Ascites. 2. Fatty infiltration of the liver. Reading Location: [facility] Assessment & Plan Assessment/Plan (1) HFrEF (heart [...] cardiac needs at this point time so figureoa hold off on cardiology consultation at present. Patient states that he is had a left heart catheterization which has been normal. (2) Elevated bilirubin: PLAN: Suspect due to hepatic congestion due to his cardiomyopathy. (3) CKD stage 3b, GFR 30-44 ml/min: PLAN: Monitor closely while on diuretics. PLAN: Plan History of PE: Continue with apixaban History of noncompliance: Per previous documentation from [facility] well [facility]. Patient is steadfast in regards to doing [...] his cardiomyopathy. Charges/Coding Visit Charges Inpatient E&M: 18063 Init Hosp L3 01/04/25 1406 Cosigner Signature (if applicable): CC: Dr. Anshul Lemus, DO; No Primary Care Physician~ Signed [facility]07-08-2025 Radiology Diagnostic study note [facility] Imaging Services [address] [place] [address] Abdomen Limited MR#: [id number] Acct: [id number] Name: CARLO MEDINA Rep #: [id number] : 1980 M 44 From: Mallorie Ford MD PCP: Care Physician,No Primary Status: REG ER Study:Abdomen Limited Date of Exam: 02/21 Exam# [id number] Ordering Dr: Kelly Penaloza DO EXAM: US Abdomen Limited, Right Upper Quadrant CLINICAL INDICATION: ELEVATED LIVER ENZYMES AND BILI TECHNIQUE: Real-time ultrasound of the right upper quadrant with image documentation. COMPARISON: No relevant prior studies available. FINDINGS: LIVER: Liver measures up to 15.9 cm. Fatty infiltration of the liver. No intrahepatic bile duct dilation. GALLBLADDER: Negative Melendez's sign was reported by the clinical trials assistant. No gallstones. COMMON BILE DUCT: Unremarkable as [...] Fatty infiltration of the liver. Reading Location: [facility] CC: Dr. Deborah Penaloza DO; No Primary Care Physician ~ Paraprofessional Aide: Signed [facility]07-08-2025 Radiology Diagnostic study note [facility] Imaging Services [address] [place] [address] [id number] Chest PA and Lateral MR#: [id number] Acct: [id number] Name: CARLO MEDINA Rep #: [id number] : 1980 M 44 From: Mallorie Ford MD PCP: Care Physician,No Primary Status: REG ER Study:Chest PA and Lateral Date of Exam: 01/04/25 Exam# [id number] Ordering Dr: Kelly Penaloza DO EXAM: XR Chest, 2 Views CLINICAL INDICATION: SOB TECHNIQUE: Frontal and lateral views of the chest. COMPARISON: No relevant prior studies available. FINDINGS: LUNGS AND PLEURAL SPACES: Bibasilar atelectasis or pneumonia. No pneumothorax. HEART: Unremarkable. No cardiomegaly. MEDIASTINUM: Unremarkable. Normal mediastinal contour. BONES/JOINTS: Unremarkable. No acute fracture. RAD/Chest PA and Lateral IMPRESSION: Bibasilar atelectasis or pneumonia. Reading Location: [facility] CC: Dr. Deborah Penaloza DO; No Primary Care Physician ~ Paraprofessional Aide: Signed [facility]06-27-2025 Telephone encounter Note* Telephone Encounter - Jaden Milner - 12/24/2024 4:00 PM EDT Last visit with PCP (YUVAL GAYLE) was 09/17/2024 No future appointment with PCP (YUVAL GAYLE) Thank you. [id number] Miscellaneous Notes* Telephone Encounter - Jaden Milner - 12/24/2024 4:00 PM EDT Last visit with PCP (YUVAL GAYLE) was 09/17/2024 No future appointment with PCP (YUVAL GAYLE) Thank you. documented in this [id number] Telephone encounter Note* Telephone Encounter - Yuval [...] 162 142 135 153 206 195 212 [id number] Miscellaneous Notes* Telephone Encounter - Yuval Gayle [...] 212 * Telephone Encounter - Cornelia Dash [facility] - 12/13/2024 1:20 PM EDT Requested Prescriptions Pending Prescriptions Disp Refills Apixaban (ELIQUIS) 5 MG tablet 28 Tablet 0 Sig: Take 1 Tablet by mouth 2 times daily. Last visit with PCP (YUVAL GAYLE) was 09/17/2024 No future appointment with PCP (YUVAL GAYLE) documented in this [id number] Telephone encounter Note* Telephone Encounter - Cornelia Dash RP - 12/13/2024 1:20 PM EDT Requested Prescriptions Pending Prescriptions Disp Refills Apixaban (ELIQUIS) 5 MG tablet 28 Tablet 0 Sig: Take 1 Tablet by mouth 2 times daily. Last visit with PCP (YUVAL GAYLE) was 09/17/2024 No future appointment with PCP (YUVAL GAYLE) [id number] Telephone encounter Note* Telephone Encounter - Eva Isaacs MA - 12/06/2024 8:47 AM EDT No response letter printed and mailed to patient [id number] Miscellaneous Notes* Telephone Encounter - Eva Isaacs MA - 12/06/2024 8:47 AM EDT No response letter printed and mailed to patient * Telephone Encounter - Eva Isaacs MA - 12/02/2024 2:43 PM EDT Attempted to contact patient. Left voicemail message on listed contact # [facility] [phone]. Asked patient to reference #99 when calling back to our office. Ok to relay message below. Please assist patient in scheduling appointment when he returns call. * Telephone Encounter - Eva Isaacs MA - 11/29/2024 11:51 AM EDT Attempted to contact patient. Left voicemail message on listed contact # to call [employer] [phone]. Asked patient to reference #99 when calling [...] if continued therapy necessary. documented in this [id number] Telephone encounter Note* Telephone Encounter - Eva Isaacs MA - 12/02/2024 2:43 PM EDT Attempted to contact patient. Left voicemail message on listed contact # to call [employer] [phone]. Asked patient to reference #99 when calling back to our office. Ok to relay message below. Please assist patient in scheduling appointment when he returns call. [id number] Miscellaneous Notes* Telephone Encounter - Eva Isaacs MA - 12/02/2024 2:43 PM EDT Attempted to contact patient. Left voicemail message on listed contact # to call [employer] [phone]. Asked patient to reference #99 when calling back to our office. Ok to relay message below. Please assist patient in scheduling appointment when he returns call. * Telephone Encounter - Eva Isaacs MA - 11/29/2024 11:51 AM EDT Attempted to contact patient. Left voicemail message on listed contact # to call [employer] [phone]. Asked patient to reference #99 when calling [...] if continued therapy necessary. documented in this [id number] Telephone encounter Note* Telephone Encounter - Eva Isaacs MA - 11/29/2024 11:51 AM EDT Attempted to contact patient. Left voicemail message on listed contact # to call [facility] [phone]. Asked patient to reference #99 when calling back to our office. Ok to relay message below. Please assist patient in scheduling appointment, [id number] Miscellaneous Notes* Telephone Encounter - Eva Isaacs MA - 11/29/2024 11:51 AM EDT Attempted to contact patient. Left voicemail message on listed contact # [facility] [phone]. Asked patient to reference #99 when calling [...] if continued therapy necessary. documented in this [id number] Telephone encounter Note* Telephone Encounter - Jovana Patel - 11/26/2024 11:01 AM EDT Patient's significant other called in checking on the refill request for Apixaban (ELIQUIS) 5 MG tablet. [facility] gave [facility] a 3-day emergency supply because he is completely out of medication. Please contact the patient/pharmacy to discuss this issue as well as a plan of action. [id number] Miscellaneous Notes* Telephone Encounter - Jovana Patel [...] if continued therapy necessary. documented in this [id number] Telephone encounter Note* Telephone Encounter - Leatha Batista PharmD - 11/23/2024 9:20 AM EDT This patient is requesting a refill on a medication that was prescribed in an ED, Urgent Care or during a Hospital Discharge. Please approve if appropriate or contact patient if not appropriate. Pharmacy was unable to determine appropriateness or if continued therapy necessary. [employer] Work Phone: 1(428) 496-854904-30-2025 Telephone encounter Note* Telephone Encounter - Radha Flores RN - 10/27/2024 11:03 AM EDT Transitional Care Management Contact Initial communication post-discharge: 1st attempt: 10/27/24, 11:03 AM -Left message 2nd attempt: 10/29/24, 10:52 AM -Left message 3rd attempt: 11/01/24, 8:56 AM-Left message Letter mailed: 11/01/24 Patient no longer meet [employer] Super[employer] Coordination services due to one or more of the following: [] Well connected to medical home and/or other services [] Identified Needs/Goals have been met [x] Unable to contact patient (at least 3 documented attempts) [] Is not adherent to Care Plan or Goals [] Declined Services [] Rolled off insurance plan or no longer patient [] Living situation changed; ie. SNF, Usp, Hospice [] PCP recommends deferral [] Patient transferred to Emr Analyst or Chargeback Specialist [] No readmissions 30 days post discharge. [] DESEAN Bee, supervisor prop makingRoute Sales Associate [phone] [id number] Miscellaneous Notes* Telephone Encounter - Radha Flores RN - 10/27/2024 11:03 AM EDT Transitional Care Management Contact Initial communication post-discharge: 1st attempt: 10/27/24, 11:03 AM -Left message 2nd attempt: 10/29/24, 10:52 AM -Left message 3rd attempt: 11/01/24, 8:56 AM-Left message Letter mailed: 11/01/24 Patient no longer meet [employer] Supervisor Coordination services due to one or more of the following: [] Well connected to medical home and/or other services [] Identified Needs/Goals have been met [x] Unable to contact patient (at least 3 documented attempts) [] Is not adherent to Care Plan or Goals [] Declined Services [] Rolled off insurance plan or no longer MH patient [] Living situation changed; ie. SNF, Usp, Hospice [] PCP recommends deferral [] Patient transferred to Emr Analyst or Chargeback Specialist [] No readmissions 30 days post discharge. [] DESEAN Bee, supervisor prop makingRoute Sales Associate [phone] documented in this [id number] History of Present illness Narrative* Giselle Pierre [...] continues to refuse medical care/medications. Selena Feliz INSPECTOR SUBASSEMBLY, SECURITY ADMINISTRATOR Inpatient Chargeback Specialist * Giselle Pierre RN - 10/26/2024 9:01 [...] does not follow with , lives near [facility] Problems as of 10/25/2024 Acute deep vein thrombosis (DVT) of lower extremity (HCC) Acute kidney injury superimposed on stage 3b chronic kidney disease Pneumonia of right lower lobe due to infectious organism Acute on chronic HFrEF (heart failure with reduced ejection fraction) (HCC) Cirrhosis (HCC) Hypomagnesemia Hypokalemia RESOLVED: Cardiogenic shock (HCC) Ramos Pope MD, [facility] Medicine Physician Applications Consultantnewspaper distributor supervisor * Anshul Laird APRN-OFFICE CORRESPONDENT - 10/25/2024 1:16 PM EDT Hospital Medicine Progress Note Carlo Medina Age [age] year old male [id number] AC4-703/2 Admitted 10/17/2024 6:40 PM Hospital Day: 9 [...] started in the CICU. Transferred out to [facility] in stable condition. Patient completed abxcourse 10/23. [...] - liver clinic as an outpatient - [facility] when patient willing Hypomagnesemia Level 1.5 10/21 [...] he allows GDMT optimization. Anshul Laird MSN, CERTIFIED RECREATIONAL THERAPIST, AGACNP- Team 9- Hospital Medicine Pager # [phone] * Selena Feliz LSW - 10/25/2024 10:54 AM EDT SOCIAL WORK Per interdisciplinary rounds, pt is not medically cleared for discharge. NIR is 10/26/24. PT to work with pt for homegoing recommendations. Plan is anticipated for pt to discharge home, pending PT eval. SW will continue to follow. Selena Feliz MSW, SECURITY ADMINISTRATOR Inpatient Chargeback Specialist * Sara Tineo MD - 10/24/2024 12:04 PM EDT Images from the original note were not included. Hospital Medicine Progress Note Carlo Medina Age [age] year old male [id number] AC4-703/2 Admitted 10/17/2024 6:40 PM Hospital Day: [...] started in the CICU. Transferred out to [facility] in stable condition. Patient completed abxcourse 10/23. [...] 1+ peripheral edema Skin: warm, dry Neuro: registered clinical dietitian grossly intact, no focal neurological deficits, A&Ox3 [...] he allows GDMT optimization Sara Tineo MD Hospital Medicine * Katie [...] any chest pain. Notified Dr. Claude Waller () regarding the patient's symptoms and interventions. Upon [...] attempting and insisted on a specialist from [employer] or IV Team. Rapid Response paged; to bedside to attempt IV placement. Missed first attempt. Pt refused any further attempts at IV placement. MD Tineo notified. * Sara Tineo MD - 10/23/2024 8:32 AM EDT Images from the original note were not included. Hospital Medicine Progress Note Carlo Medina Age [age] year old male [id number] AC4-703/2 Admitted 10/17/2024 6:40 PM Hospital Day: [...] started in the CICU. Transferred out to [facility] in stable condition. Patient completed abxcourse 10/23. [...] 1+ peripheral edema Skin: warm, dry Neuro: registered clinical dietitian grossly intact, no focal neurological deficits, A&Ox3 [...] home when medically cleared Sara Tineo MD [facility] Medicine * Katie Christy LPN - 10/22/2024 [...] follow. No weekend SW needs. Selena Feliz INSPECTOR SUBASSEMBLY, SECURITY ADMINISTRATOR Inpatient Chargeback Specialist * Sara Tineo MD - 10/22/2024 7:21 AM EDT Images from the original note were not included. Hospital Medicine Progress Note Carlo Medina Age [age] year old male [id number] AC4-703/2 Admitted 10/17/2024 6:40 PM Hospital Day: [...] started in the CICU. Transferred out to [facility] in stable condition INTERVAL HPI: Patient seen [...] 1+ peripheral edema Skin: warm, dry Neuro: registered clinical dietitian grossly intact, no focal neurological deficits, A&Ox3 [...] - liver clinic as an outpatient - [facility] when patient willing Hypomagnesemia Level 1.5 4/24 [...] home pending medical clearance. Sara Tineo MD [facility] Medicine * Katie Christy LPN - 10/21/2024 [...] then. Dr. Barraza notified. * Leatha Mckeon APRN-OFFICE CORRESPONDENT - 10/21/2024 5:35 PM EDT Hospital Medicine Progress Note Carlo Medina Age [age] year old male [id number] AC4-703/2 Admitted 10/17/2024 6:40 PM Hospital Day: [...] started in the CICU. Transferred out to [facility] in stable condition INTERVAL HPI: In bed [...] DISPO: to home when medically improved NEERAJ Reyez * Amber Murry RN - 10/21/2024 1:37 PM EDT Patients potassium is 3.2. RN attempted to administer ordered potassium replacement. Patient refused medication. Pt educated on risks of not taking medication with a low potassium. Dr. Myers notified. * Yee Cassidy LSW - 10/21/2024 11:31 AM EDT Per interdisciplinary rounds, GOC conversation to take place with pt today. SW will follow for outcome of this meeting. JAMIE Ford LSW Inpatient Chargeback Specialist * Jim Stockton MD - 10/21/2024 10:47 AM EDT Images from the original note were not included. [facility] CICU - Progress Note Carlo Medina Age [age] year old male ROOM: [place] [address] Admitted 10/17/2024 6:40 PM Hospital Day: 5 [...] Partial treatment with likely repeat admissions and longterm decline, or taking an approach that would [...] pending results of today's team introduction to [facility]. -Strict I/Os -K > 4, Mg >2 [...] from the original note were not included. [facility] CICU - Progress Note Carlo Medina Age [age] year old male ROOM: [place] [address] Admitted 10/17/2024 6:40 PM Hospital Day: 4 [...] timely matter. Team is aware. * Yee Csasidy LSW - 10/19/2024 12:09 PM EDT 10/19/24 [...] SERVICES No ADMISSION INSURANCE Private Insurance ([facility] [place]) TRANSPORTATION TO AND/OR FROM APPOINTMENTS Family/Friend Provides Ride HOME OXYGEN No HOME HEALTH CARE PRIOR TO ADMISSION No DIALYSIS No DISCUSSSED WHAT HELP PATIENT WOULD NEED Yes SDOH Completed? Yes SDOH Risks Addressed - Do Not complete until all required hernandez are completed Yes DISCHARGE DISPOSITION Home SW following for appropriate dc planning. JAMIE Ford LSW Inpatient Chargeback Specialist * Abraham Jean Baptiste PharmD - 10/19/2024 9:25 AM EDT Pharmacy Renal [...] Placed in Followed by Linked Group -- 10/17/247 Apixaban (ELIQUIS) tablet 5 mg, Oral, 2 [...] from the original note were not included. [facility] CICU - Progress Note Carlo Medina Age [age] year old male ROOM: [place] [address] Admitted 10/17/2024 6:40 PM Hospital Day: 3 [...] and offer PRN medication that pt refuse, Kylie Delgado, was notified, not further order received at [...] results. New orders received. * Alex Garay [facility] - 10/18/2024 5:39 AM EDT Pharmacokinetic Dosing [...] Department of Pharmacy Services documented in this [id number] [facility] Hospital course Narrative* Anshul Laird APRN-CNP - 10/26/2024 9:36 AM EDT Images from the original note were not included. DISCHARGE SUMMARY [address] [address] Carlo Medina Date of : 1980 44 year old male Attending Anshul Laird APRN-CNP Date of Admission 10/17/2024 Date of Discharge 10/26/2024 Final Diagnosis: Acute on chronic HFrEF (heart failure with reduced ejection fraction) ([facility]) Hospital Problems as of 10/26/2024 * (Principal) [...] Referral Type: Service Level Authorization Referral Location: [facility] Number of Visits Requested: 3 Expiration Date: 10/26/25 Future Appointments Date Time Provider Department Center 11/12/2024 8:40 AM Jamal Geronimo MD [facility] 11/17/2024 2:20 PM Disha Brenner MD [facility] Condition at Discharge unchanged Symptoms to [...] 16.82 (H) Legend: (H) High RESPIRATORY CULTURE, [facility] Order: [id number] Collected 10/18/2024 13:41 Status: Final result Visible to patient: Yes (not seen) Specimen Information: Sputum, expectorated; Respiratory 0 Result Notes Resp Culture Squamous Epithelial Cells present. Recommend submission of another specimen. Resulting Agency: [facility] Specimen Collected: 10/18/24 13:41 Last Resulted: 10/18/24 [...] - TSH: N/A EKG: Sinus Tachycardia, Right Cylinder Deviation, RBBB Imaging: - CXR 10/17/24 demonstrating [...] started in the CICU. Transferred out to [facility] in stable condition. Patient completed abx course [...] to follow up with HF here in [place] for further discussion. He does not wish to be palliative care/hospice at this time. Follow Up -f/u Mag ANNETTE on -f/u with Dr. Geronimo in cardiology 11/12 -f/u with liver clinic for cirrhosis on 11/17 -f/u with PCP in [place], refusing to get PCP here I provided [...] extremity, unspecified laterality (HCC) Cholecalciferol 50 MCG (1999 [place]) CAPS Take [...] illness requiring hospital care. Anshul Laird MSN, CERTIFIED RECREATIONAL THERAPIST, AGACNP- Team 9- Hospital Medicine Pager # [phone] documented in this [id number] Hospital Discharge instructions* Discharge Instructions* Anshul Laird APRN-CNP - 10/26/2024 9:36 AM EDT Please follow up with heart failure doctor due to your ejection fraction being 15%. Please get repeat labs this week and follow up with your family doctor * Attachments The following attachments cannot be sent through Care Everywhere. * Acute Kidney Injury Discharge Instructions (Lithuanian) * Heart Failure Discharge Instructions, Adult (Lithuanian) documented in this [id number] NotePatient called stating IV was causing him pain. IV was assessed no obvious obstruction or infiltrates. Patient given education on the risk of having no IV access. Patient still requesting IV removal. [facility] [id number] Evaluation + Plan note* Assessment & Plan Note - Anshul Laird APRN-CNP - 10/25/2024 1:26 PM EDTAssociated Problem(s): Pneumonia of right lower lobe due to infectious organism No leukocytosis, afebrile, stable on room air, procal elevated to 16.8 on admission Given recent hospitalization, treating for HAP - completed course of linezolid and cipro today 10/24 [id number] Evaluation + Plan note* Assessment & Plan [...] as an outpatient - continue GOC discussions [id number] Evaluation + Plan note* Assessment & Plan Note - Anshul Laird APRN-CNP - 10/25/2024 1:26 PM EDTAssociated Problem(s): Acute kidney injury superimposed on stage 3b chronic kidney disease Max creatinine this stay 3.2, down trending to 1.46 which appears to be better than baseline - avoid nephrotoxic agents - repeat bmp as patient will allow [id number] Evaluation + Plan note* Assessment & Plan Note - Anshul Laird APRN-CNP - 10/25/2024 1:26 PM EDTAssociated Problem(s): Cirrhosis (HCC) With hyperbili - liver clinic as an outpatient - [facility] when patient willing [id number] Evaluation + Plan note* Assessment & Plan Note - Anshul Laird APRN-CNP - 10/25/2024 1:26 PM EDTAssociated Problem(s): Hypomagnesemia Level 1.5 10/21 - only agreeable to mag oxide - repeat level in am EdrtrIymfzh37-28-4351 Evaluation + Plan note* Assessment & Plan Note - Anshul Laird APRN-CNP - 10/25/2024 1:26 PM EDTAssociated Problem(s): Hypokalemia Level 3.2 10/21 - he declined potassium PO and IV - BMP as patient will allow [id number] Evaluation + Plan note* Assessment & Plan Note - Anshul Laird APRN-CNP - 10/25/2024 1:26 PM EDTAssociated Problem(s): Acute deep vein thrombosis (DVT) of lower extremity (HCC) - apixaban 5 mg po bid [id number] Miscellaneous Notes* Assessment & Plan Note - [...] - liver clinic as an outpatient - [facility] when patient willing * Assessment & Plan [...] started in the CICU. Transferred out to [facility] in stable condition. Patient completed abxcourse 10/23. [...] Time): Dr. Tineo, Medicine Team 6, 15:35 [facility] Transfer Note Hospital Course: Carlo [...] HAP being treated with ciprofloxacin/linezolid. Transfer to [facility]. Vitals: BP 89/74 (BP Location: left arm) [...] DO Internal Medicine, PGY-2 documented in this [id number] Consult note* Maya Hoff, MAGEN - 10/25/2024 10:56 AM EDT Images from [...] none PO Intake: 10/24 - 100% per [facility] Anthropometrics: Height: 6' 1 Current wt: [...] (significant). Estimated Energy Needs: using 68 kg 7276-6435 kcal/d 30-35 kcal/kg 80-95 gm pro/d 1.2-1.4 [...] started in the CICU. Transferred out to [facility] in stable condition. Pt completed abx course 10/23. Course c/bpt continued intermittent refusal of medications. Pt reported continued cough and SOB - requested supplemental O2 despite good saturations. After discussion about need for diuretics to help alleviatefluid build up which is causing SOB, pt agreed to Bumex. RD Consult referred by [employer] for wt loss. Pt denied any recent [...] Hoff MS, RD, LD, CNSC Personal pager: [phone] housecalls nurse nutrition pager [phone] (from 7am-7pm) [employer] Work Phone: [phone] Consult note* Maya Hoff RD - 10/25/2024 [...] intact Eyes/Nose/Mouth: RA Last BM: 10/24 per [facility] Last Emesis: 10/21 x1 - medium, partially [...] none PO Intake: 10/24 - 100% per [facility] Anthropometrics: Height: 6' 1 Current wt: [...] (significant). Estimated Energy Needs: using 68 kg 0772-5741 kcal/d 30-35 kcal/kg 80-95 gm pro/d 1.2-1.4 [...] started in the CICU. Transferred out to [facility] in stable condition. Pt completed abx course 10/23. Course c/bpt continued intermittent refusal of medications. Pt reported continued cough and SOB - requested supplemental O2 despite good saturations. After discussion about need for diuretics to help alleviatefluid build up which is causing SOB, pt agreed to Bumex. RD Consult referred by [employer] for wt loss. Pt denied any recent [...] Hoff MS, RD, LD, CNSC Personal pager: [phone] housecalls nurse nutrition pager [phone] (from 7am-7pm) * Georgia Abarca, PT - 10/25/2024 10:45 AM EDTAssociated Order(s): IP PHYSICAL THERAPY SERVICE REQUEST PHYSICAL THERAPY ACUTE EVALUATION Referral received, chart reviewed. Patient seen from 1045 to [address] [place] [address] for 23 minutes. Evaluation and treatment Admit [...] don't need oxygen. 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 If any questions contact [facility] DME Provider at [phone]. 10/25/2024 6 Clicks Basic [employer] PT Difficulty [...] understanding and agreement with the plan. Georgia Abarca, PT NA = Not Assessed, I = Independent, AZ = Modified Independent, Sup = Supervised, Set [...] not included. Dietitian vs DietaryTech: Dietary TechDiet Rock Crusher Operator Nutrition Screening Reason for visit: LOS 5 [...] care: 30 minutes PAO Cole (Nutrition) Pager #[phone]. documented in this [id number] Consult note* Georgia Abarca, PT - 10/25/2024 10:45 AM EDTAssociated Order(s): IP PHYSICAL THERAPY SERVICE REQUEST PHYSICAL THERAPY ACUTE EVALUATION Referral received, chart reviewed. Patient seen from 1045 to 1108 on [address] [facility] for 23 minutes. Evaluation and treatment Admit [...] don't need oxygen. 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 If any questions contact [facility] DME Provider at [phone]. 10/25/2024 6 Clicks Basic [employer] PT Difficulty [...] understanding and agreement with the plan. Georgia Abarca, PT NA = Not Assessed, I = Independent, AZ = Modified Independent, Sup = Supervised, Set up = Physical Assistance for Set-up Only, Min = Minimal Assistance, Mod = Moderate Assistance, Max = Max assistance; Dep = Dependent; AROM = Active Range of Motion; PROM = Passive Range of Motion; MMT = Manual Muscle Test; LE = Lower Extremity [id number] Evaluation + Plan note* Assessment & Plan Note - Sara Tineo MD - 10/24/2024 12:08 PM EDTAssociated Problem(s): Pneumonia of right lower lobe due to infectious organism No leukocytosis, afebrile, stable on room air, procal elevated to 16.8 on admission Given recent hospitalization, treating for HAP - complete course of linezolid and cipro today (d7/7) T HsbygCsyibi69-55-3692 Evaluation + Plan note* Assessment & Plan [...] outpatient - continue GOC discussions, ?psych consult T [id number] Evaluation + Plan note* Assessment & Plan Note - Sara Tineo MD - 10/24/2024 12:08 PM EDTAssociated Problem(s): Acute kidney injury superimposed on stage 3b chronic kidney disease Max creatinine this stay 3.2, down trending to 1.46 which appears to be better than baseline - avoid nephrotoxic agents - repeat bmp as patient will allow TzhaaYztcwd09-27-7119 Evaluation + Plan note* Assessment & Plan Note - Sara Tineo MD - 10/24/2024 12:08 PM EDTAssociated Problem(s): [facility]HCC) [facility] as an [facility] - [facility] when patient willing CponsDwttuz22-28-2721 Evaluation + Plan note* Assessment & Plan Note - Sara Tineo MD - 10/24/2024 12:08 PM EDTAssociated Problem(s): Hypomagnesemia Level 1.5 10/21 - only agreeable to mag oxide - repeat level in am UraxgNyuwtg78-87-5270 Evaluation + Plan note* Assessment & Plan Note - Sara Tineo MD - 10/24/2024 12:08 PM EDTAssociated Problem(s): Hypokalemia Level 3.2 10/21 - he declined potassium PO and IV again today - BMP in am JnfbtNvezmw64-59-4256 Evaluation + Plan note* Assessment & Plan Note - Sara Tineo MD - 10/24/2024 12:08 PM EDTAssociated Problem(s): Acute deep vein thrombosis (DVT) of lower extremity (HCC) - apixaban 5 mg po bid NhwyeXhewey81-29-5501 Evaluation + Plan note* Assessment & Plan Note - Sara Tineo MD - 10/23/2024 11:42 AM EDTAssociated Problem(s): Cirrhosis (HCC) [facility] - [facility] when patient willing UwjeqIkesas47-25-5887 Evaluation + Plan note* Assessment & Plan Note - Sara Tineo MD - 10/23/2024 11:42 AM EDTAssociated Problem(s): Hypomagnesemia Level 1.5 10/21 - only agreeable to mag oxide - repeat level in am HppftBntmtb24-72-4438 Evaluation + Plan note* Assessment & Plan Note - Sara Tineo MD - 10/23/2024 11:42 AM EDTAssociated Problem(s): Hypokalemia Level 3.2 10/21 - he declined potassium PO and IV again today - BMP in am TwgphEcqiwd91-50-2112 Evaluation + Plan note* Assessment & Plan Note - Sara Tineo MD - 10/23/2024 11:42 AM EDTAssociated Problem(s): Acute deep vein thrombosis (DVT) of lower extremity (HCC) - apixaban 5 mg po bid NjqgxAhazyk02-47-8893 Evaluation + Plan note* Assessment & Plan Note - Sara Tineo MD - 10/23/2024 11:42 AM EDTAssociated Problem(s): Pneumonia of right lower lobe due to infectious organism No leukocytosis, afebrile, stable on room air, procal elevated to 16.8 on admission Given recent hospitalization, treating for HAP - complete course of linezolid and cipro today (d7/7) NfzhpBhiiyy39-82-8206 Evaluation + Plan note* Assessment & Plan [...] outpatient - continue GOC discussions, ?psych consult FbiphQhtxjg45-67-1979 Evaluation + Plan note* Assessment & Plan Note - Sara Tineo MD - 10/23/2024 11:42 AM EDTAssociated Problem(s): Acute kidney injury superimposed on stage 3b chronic kidney disease Max creatinine this stay 3.2, down trending to 1.46 which appears to be better than baseline - avoid nephrotoxic agents - repeat bmp as patient will allow JcktcWgyrpf38-42-7944 Consult note* Mecca Joe - 10/22/2024 1:36 PM EDT Images from the original note were not included. Dietitian vs DietaryTech: Dietary TechDiet Rock Crusher Operator Nutrition Screening Reason for visit: LOS 5 [...] care: 30 minutes PAO Cole (Nutrition) Pager #[phone]. [id number] Evaluation + Plan note* Assessment & Plan Note - Sara Tineo MD - 10/22/2024 10:42 AM EDTAssociated Problem(s): Pneumonia of right lower lobe due to infectious organism No leukocytosis, afebrile, stable on room air, procal elevated to 16.8 on admission Given recent hospitalization, treating for HAP - continue linezolid and cipro (d6/7) MewiiKeplus49-45-0091 Evaluation + Plan note* Assessment & Plan [...] as an outpatient - continue GOC discussions VarriLyizqf14-35-9083 Evaluation + Plan note* Assessment & Plan Note - Sara Tineo MD - 10/22/2024 10:42 AM EDTAssociated Problem(s): Cirrhosis (HCC) With hyperbili - liver clinic as an outpatient - [facility] when patient willing MddzxAootbi74-11-7218 Evaluation + Plan note* Assessment & Plan Note - Sara Tineo MD - 10/22/2024 10:42 AM EDTAssociated Problem(s): Hypomagnesemia Level 1.5 10/21 - only agreeable to mag oxide - repeat level in am PqeivInjklz50-63-1363 Evaluation + Plan note* Assessment & Plan Note - Sara Tineo MD - 10/22/2024 10:42 AM EDTAssociated Problem(s): Hypokalemia Level 3.2 10/21 - he declined potassium PO and IV again today - BMP in am AiyreNblvbi20-42-5239 Evaluation + Plan note* Assessment & Plan Note - Sara Tineo MD - 10/22/2024 7:22 AM EDTAssociated Problem(s): Acute kidney injury superimposed on stage 3b chronic kidney disease Max creatinine this stay 3.2, down trending to 1.46 which appears to be better than baseline - avoid nephrotoxic agents - repeat bmp in am GdfdqGdcsru19-29-5157 Evaluation + Plan note* Assessment & Plan Note - Sara Tineo MD - 10/22/2024 7:22 AM EDTAssociated Problem(s): Acute deep vein thrombosis (DVT) of lower extremity (HCC) - apixaban 5 mg po bid T AklhgMziysz44-88-5279 Evaluation + Plan note* Assessment & Plan Note - Leatha Mckeon APRN-CNP - 10/21/2024 6:01 PM EDTAssociated Problem(s): Pneumonia of right lower lobe due to infectious organism No leukocytosis, afebrile, stable on room air, procal elevated to 16.8 Given recent hospitalization, treating for HAP - continue linezolid and cipro WtxjqEomyvq55-28-5799 Evaluation + Plan note* Assessment & Plan Note - Leahta Mckeon APRN-CNP - 10/21/2024 6:01 PM EDTAssociated Problem(s): Cardiogenic shock (HCC) (Resolved 10/21/2024) Managed in the cicu, at this time has resolved [place] [id number] Evaluation + Plan note* Assessment & Plan [...] as an outpatient - continue GOC discussion BvfyaExeerk61-36-9416 Evaluation + Plan note* Assessment & Plan Note - Leatha Mckeon APRN-CNP - 10/21/2024 6:01 PM EDTAssociated Problem(s): Acute kidney injury superimposed on stage 3b chronic kidney disease Max creatinine this stay 3.2, down trending to 1.46 which appears to be better than baseline - avoid nephrotoxic agents - repeat bmp in am QjhhgZdsyzb13-62-6900 Evaluation + Plan note* Assessment & Plan Note - Leatha Mckeon APRN-CNP - 10/21/2024 6:01 PM EDTAssociated Problem(s): Cirrhosis (HCC) With hyperbili - liver clinic as an outpatient - HFP in am TsoidGixtve58-70-6572 Evaluation + Plan note* Assessment & Plan Note - Leatha Mckeon APRN-CNP - 10/21/2024 6:01 PM EDTAssociated Problem(s): Hypomagnesemia Level 1.5 this am - only agreeable to mag oxide - repeat level in am AherfRrnizc32-84-3602 Evaluation + Plan note* Assessment & Plan Note - Leatha Mckeon APRN-CNP - 10/21/2024 6:01 PM EDTAssociated Problem(s): Hypokalemia Level 3.2 - he declined potassium PO and IV - BMP in am NhtzxMqxprd91-03-7659 Evaluation + Plan note* Assessment & Plan Note - Leatha Mckeon APRN-CNP - 10/21/2024 6:01 PM EDTAssociated Problem(s): Acute deep vein thrombosis (DVT) of lower extremity (HCC) - apixaban 5 mg po bid PjxdkQgmmll19-17-9069 Hospital Note* Hospital Course - Anshul Laird [...] started in the CICU. Transferred out to [facility] in stable condition. Patient completed abxcourse 10/23. Course complicated by patient continued intermittent refusal of medications. 10/25 Attempting lab work on the patient and is agreeable to take his medications today. If stable lab work, will start SLGT2 inhibitor. Nursing staff and nursing aid attempted blood work with no success. Pending IV team to get labs. [id number] Progress note* Transfer Note - Larry Myers DO - 10/21/2024 11:43 AM EDT Images from the original note were not included. Provider Called Report To (Enter Provider Name, Service, and Time): Dr. Tineo, Medicine Team 6, 15:35 [facility] Transfer Note Hospital Course: Carlo [...] goals Larry Myers DO Internal Medicine, PGY-2 [employer] Work Phone: 1(478) 739-996204-22-2025 NoteSecond attempt to collect stat labs, patient refused, pt refused medication ordered for this am , education provided, pt verbalized understanding and continued to refused, MD made aware, not further orders receivedThe [employer] [id number] Emergency department Note* Shari Caal EMR - 10/18/2024 3:32 AM EDT notified of critical LACTATE value of 4.7. Hard copy of results given to . [id number] Emergency department Note* Shari Caal EMR - [...] document resolution. [] ED Course User Index [AH] Vic Sandhu MD Clinical Impression Diagnosis Comment [...] room at the time of the evaluation. Biochemistry Technologist: not needed - patient preferred language is Lithuanian. HPI Pt is a 44 year old [...] Sanderson Course: ED Course as of 10/17/242123 [place] Oct 17, 20242040 Complete Blood Count W/Diff(!): [...] note. Phoebe Sanderson MD documented in this [id number] History and physical note* Jim Stockton MD - 10/18/2024 2:02 AM EDT Images from the original note were not included. [facility] Cardiac Intensive Care Unit - H&P Note Carlo Medina Age [age] year old male ROOM: [place] [address] Admitted: 10/17/2024 6:40 PM Hospital Day: 2 [...] - TSH: N/A EKG: Sinus Tachycardia, Right Cylinder Deviation, RBBB Imaging: - CXR 10/17/24 demonstrating [...] Stratification: Chads-Vasc (stroke risk in non-valvular Afib) [id number] Score: 3 This is based on the [...] CHAVIS, et al., 2019) failed to calculate. Ward CAD risk score Cannot assess CHD for [...] Dyspnea at rest ORDERING PROVIDER: VIC SANDHU TECHNGAVIN NOTE: COMPARISON: Chest radiograph dated October 13, [...] with patient or surrogate Jim Stockton MD [id number] History and physical note* Jim Stockton MD - 10/18/2024 2:02 AM EDT Images from the original note were not included. [facility] Cardiac Intensive Care Unit - H&P Note Carlo Medina Age [age] year old male ROOM: [place] [address] Admitted: 10/17/2024 6:40 PM Hospital Day: 2 [...] recent hospitalization, patient was initially admitted to [facility] Medicine inpatient team formanagement of ADHF likely [...] - TSH: N/A EKG: Sinus Tachycardia, Right Cylinder Deviation, RBBB Imaging: - CXR 10/17/24 demonstrating [...] Stratification: Chads-Vasc (stroke risk in non-valvular Afib) [id number] Score: 3 This is based on the [...] CHAVIS, et al., 2019) failed to calculate. Ward CAD risk score Cannot assess CHD for [...] None Consults: None Assessment and Plan: Carlo Mednia is a 44 year old male admitted [...] surrogate Jim Stockton MD documented in this [id number] Emergency department Note* Niko Villalpando, RUFINA - 10/18/2024 1:[address] RESENDEZ notified of critical LACTATE value of 5.3. Hard copy of results given to Dr. RESENDEZ. [id number] Emergency department Note* Vipul Jose RN - 10/17/2024 10:00 PM EDT Delay in antibiotics d/t no IV access [id number] Physician Emergency department Note* Maurice Wise MD [...] compared to prior [] 2056 INR(!): 2.14 [AH] 2119 CXR PORTABLE 1 VIEW IMPRESSION: Interval worsening of right lower lobe pneumonia. Short-term follow-up is recommended to document resolution. [AH] ED Course User Index [AH] Vic Sandhu MD Clinical Impression Diagnosis Comment Pneumonia of right lower lobe due to infectious organism [J18.9] Cardiogenic shock (HCC) [R57.0] Pneumonia due to infectious organism, unspecified laterality, unspecified part of lung [J18.9] Maurice Wise MD [id number] Physician Emergency department Note* Vic Sandhu MD [...] room at the time of the evaluation. Biochemistry Technologist: not needed - patient preferred language is Lithuanian. HPI Pt is a 44 year old [...] Vitals Recorded in This Encounter 10/17/2024 1841 10/17/20242104 BP: 101/80 113/91 Pulse: 115 101 Resp: [...] to eliquis. At time of signout, pending STand admission. IMPRESSION AND DISPOSITION Clinical Impression Diagnosis Comment Pneumonia of right lower lobe due to infectious organism [J18.9] Patient signed out to PD at 2100. Pt signed out without complications. Vic Sandhu MD Cosigned by Pheobe Sanderson MD at 10/18/2024 10:41 PM EDT [...] in the resident's note. Phoebe Sanderson MD [id number] Physician Emergency department Note* Luis Eduardo Bernal, DO - 10/13/2024 3:51 PM EDT Images [...] heart failure (HCC) DVT (deep venous thrombosis) ([facility]) Hypercholesteremia Iron deficiency anemia Stage 2 chronic kidney disease Vitamin D deficiency Patient Active Problem List: CKD (chronic kidney disease) [N18.9] Essential hypertension [I10] Elevated liver enzymes [R74.8] Acute deep vein thrombosis (DVT) of lower extremity ([facility]) [I82.409] HFrEF (heart failure with reduced ejection fraction) ([facility]) [I50.20] History of left bundle branch block [...] hpi Review of External (Non- ED) Notes: [facility] ED notes from 08/22/24 reviewed and show [...] of DVT, CKD3, cirrhosis. Admitted 09/30/2024 to [facility] for aDHF 2/2 CAP. Pt completed course [...] primary care provider. Luis Eduardo Bernal DO [id number] Emergency department Note* Luis Eduardo Bernal DO [...] deep vein thrombosis (DVT) of lower extremity ([facility]) [I82.409] HFrEF (heart failure with reduced ejection fraction) ([facility]) [I50.20] History of left bundle branch block [...] hpi Review of External (Non- ED) Notes: [facility] ED notes from 08/22/24 reviewed and show [...] of DVT, CKD3, cirrhosis. Admitted 09/30/2024 to [facility] for aDHF 2/2 CAP. Pt completed course [...] Luis Eduardo Bernal DO documented in this [id number] Hospital Discharge instructions* Discharge Instructions* Luis Eduardo Bernal DO - 10/13/2024 3:51 PM EDT Respiratory instructions: Return to the ED if you have worsening shortness of breath, increased fever, coughing up blood, new or worsening chest pain or your symptoms don't improve in 2 days. documented in this [id number] Telephone encounter Note* Telephone Encounter - Louise Morales RN - 10/13/2024 1:01 PM EDT What is the need: Situation: call transferred from [facility] for cough. Patient calling with concern of [...] exposures) Denies Protocols used: Coughing Up Blood-A-AH [id number] Miscellaneous Notes* Telephone Encounter - Louise Morales RN - 10/13/2024 1:01 PM EDT What is the need: Situation: call transferred from [facility] for cough. Patient calling with concern of [...] concerned about lingering cough. documented in this [id number] Telephone encounter Note* Telephone Encounter - Luma Bowie - 10/13/2024 12:51 PM EDT Caller transferred to nurse for sx of(buzzword or buzzword situation)was hosptalized for pneumonia and concerned about lingering cough. [id number] NotePatient: CARLO MEDINA Age: 44 years Sex: [...] continue all the present care and therapy [facility]04-10-2025 Telephone encounter Note* Telephone Encounter - Radha Flores RN - 10/07/2024 1:44 PM EDT Transitional Care Management Contact Initial communication post-discharge: 1st attempt: 10/07/24, 1:44 PM -No answer 2nd attempt: 10/08/24, 9:47 AM -No answer 3rd attempt: 10/08/24, 2:53 PM -No answerLetter mailed: 10/08/24 Patient no longer meet [employer] Supervisor Coordination services due to one or more of the following: [] Well connected to medical home and/or other services [] Identified Needs/Goals have been met [x] Unable to contact patient (at least 3 documented attempts) [] Is not adherent to Care Plan or Goals [] Declined Services [] Rolled off insurance plan or no longer MH patient [] Living situation changed; ie. SNF, Usp, Hospice [] PCP recommends deferral [] Patient transferred to Emr Analyst or Chargeback Specialist [] No readmissions 30 days post discharge. [] DESEAN Bee, supervisor prop makingRoute Sales Associate [phone] [id number] Miscellaneous Notes* Telephone Encounter - Radha Flores RN - 10/07/2024 1:44 PM EDT Transitional Care Management Contact Initial communication post-discharge: 1st attempt: 10/07/24, 1:44 PM -No answer 2nd attempt: 10/08/24, 9:47 AM -No answer 3rd attempt: 10/08/24, 2:53 PM -No answerLetter mailed: 10/08/24 Patient no longer meet [employer] Supervisor Coordination services due to one or more of the following: [] Well connected to medical home and/or other services [] Identified Needs/Goals have been met [x] Unable to contact patient (at least 3 documented attempts) [] Is not adherent to Care Plan or Goals [] Declined Services [] Rolled off insurance plan or no longer MH patient [] Living situation changed; ie. SNF, [facility], Hospice [] PCP recommends deferral [] Patient transferred to Emr Analyst or Chargeback Specialist [] No readmissions 30 days post discharge. [] DESEAN Bee, supervisor prop makingRoute Sales Associate [phone] documented in this [id number] NoteThe [facility]umboldt [facility] HospitalWheeler Real Estate [facility] 10-06-2024 History of Present illness Narrative* [...] complete appropriate assessments and interventions. Wade ANTON, CRISTINE, CM Care Coordination department secure epic chat * Amanda Esposito RN - 10/05/2024 4:05 PM EDT Report received from amirah evans. Care assumed att * Dominic Chacko MD - 10/05/2024 12:37 PM EDT Images from the original note were not included. [facility] Internal Medicine: TEAM 2 - Daily Progress Note Patient: Carlo Medina : 1980 Sex: male Room: [place] [address] Admit Date: 09/30/2024 Today's Date: 10/05/2024 Length [...] ICU level care [facility] [facility] SUBJECTIVE: EVENTS IN PAST 24H: Some chest [...] with capacity refusing ICU treatments/interventions, transferred to [facility]. He is vitally stable, and electrolytes are [...] Medicine Pediatrics PGY 1 Team 2 Med [id number] Cosigned by Julio Jauregui MD at 10/05/2024 9:44 PM EDT * Aryan Cervantes MD - 10/05/2024 9:35 AM EDT Images from the original note were not included. Consult Service Progress Note Heart Failure Service Date and Time of Visit: 10/05/2024 9:35 AM Room: [place] [address] PCP Contact: Yuval Gayle MD Consultation Requested [...] organism Acute kidney injury superimposed on CKD ([facility]) HFrEF (heart failure with reduced ejection fraction) ([facility]) Allergies Allergies Allergen Reactions Torsemide Vomiting Reports did not tolerate, refuses to take again Sacubitril-Valsartan Vomiting Medications Current Facility-Administered Medications Medication Dose Route Frequency Last Rate Last Admin doxycycline (VIBRA-TABS) 100 MG tablet 100 mg Oral 2x Daily amoxicillin-clavulanate (AUGMENTIN) 875-125 MG per tablet 1 Tablet Oral 2x Daily 1 Tablet at 10/04/24 190 Apixaban (ELIQUIS) tablet 5 mg Oral 2x Daily 5 mg at 10/04/24 190 bumetanide (BUMEX) tablet 2 mg Oral Once acetaminophen (TYLENOL) 650 MG/20.3ML oral solution 1,000 mg Oral Q8H PRN 1,000 mg at 10/04/24 2254 oxyCODONE immediate release tablet 5 mg Oral Q6H PRN 5 mg at 10/04/24 1901 trimethobenzamide (TIGAN) 100 MG/ML injection 200 mg [...] Department of Cardiovascular Diseases Heart and Vascular [place] [facility] Teaching Physician Note: I saw and evaluated the patient. I personally obtained the reardon and critical portions of the historyand physical exam. I reviewed the resident's documentation and discussed the patient with the resident. I agree with the resident's medical decision making as documented in the resident's note. Aryan Cervantes MD * Jessenia Zhong RN - 10/05/2024 12:39 AM EDT /GREG PALACIOS notified of critical Lactate value of 3.5. /GREG PALACIOS read back critical results. New orders not received. * Jessenia Zhong RN - 10/05/2024 12:12 AM EDT Patient refuses labs this morning. MD cross * Dominic Chacko MD - 10/04/2024 5:06 PM EDT Images from the original note were not included. [facility] Internal Medicine: TEAM 2 - Daily Progress Note Patient: Carlo Medina : 1980 Sex: male Room: [place] [address] Admit Date: 09/30/2024 Today's Date: 10/04/2024 Length [...] ICU level care he was transferred to [facility]. SUBJECTIVE: EVENTS IN PAST 24H: Transferred to [facility] SUBJECTIVE: Pt arrived a febrile, tachycardic at [...] Code Emergency Contact: PATIENT: EMERGENCY CONTACT #1: KurtKaitlin (Significant other) home: , work: EMERGENCY CONTACT #2: Nanci Medina (Relative) home: , work: Dispo: Home when medically ready Outpatient followup: PCP, Yuval Gayle MD Plan is preliminary until finalized by the attending physician. Dominic Chacko MD Internal Medicine Pediatrics PGY 1 Team 2 Med [id number] Cosigned by Julio Jauregui MD at 10/05/2024 [...] DVT, cirrhosis, and CKD stage 3, admitted onApr2024, to the [facility] medicine service for acute decompensated heart failure [...] on restarting IV medications and central venous catheter/[place] Maria C catheter. He had unsuccessful attempt to place left internal jugular CVC 10/03/2024, he feels slightly better, off O2. Patient removed his IV and arterial line, refused [place] Maria C catheter, refused heparin and ceftriaxone. I re explained the gravity of his condition and offered CVC which he continued to refuse. 10/04/2024: Patient refused to continue dobutamine and asked the nurse to stop it and therefore his not being getting it. He continues to refuse central venous catheter/[place]-Maria C catheter. It was re-expand to him [...] care 30 minutes. Kathleen Burden MD MPH Weigher Production and Endovascular Specialist * Shane Omalley MD - 10/04/2024 7:53 AM EDT Images from the original note were not included. [facility] CICU - Progress Note Carlo Medina Age [age] year old male ROOM: [place] [address] Admitted 09/30/2024 4:07 PM Hospital Day: 5 [...] central line (removed because catheter traveled from [facility]). All medications refused and patient requested [...] Phenyl Epi Sedation: Fent Prop Versed Ket [place] Numbers: PAP Mean PCWP Cardiac Index Labs: [...] Heart Rate: [76-114] 76 BP: (91-110)/(76-95) 99/85 Intake/Output Summary (Last 24 hours) at 10/04/2024 [...] care. This decision was discussed with Ethics truck sales representative. Neurologic No active issues Cardiovascular # [...] an attending physician. Shane Omalley MD (he/him) Pre Sales Technical Consultant PGY-2 10/04/24 * Kathleen Burden MD, MPH - 10/03/2024 7:20 AM EDT Images from the original note were not included. [facility] CICU - Progress Note Carlo Medina Age [age] year old male ROOM: [place] [address] Admitted 09/30/2024 4:07 PM Hospital Day: 4 [...] central line (removed because catheter traveled from [facility]). All medications refused and patient requested [...] Phenyl Epi Sedation: Fent Prop Versed Ket [place] Numbers: PAP Mean PCWP Cardiac Index Labs: [...] on restarting IV medications and central venous catheter/[place] Maria C catheter. He had unsuccessful attempt to place left internal jugular CVC 10/03/2024, he feels slightly better, off O2. Patient removed his IV and arterial line, refused [place] Maria C catheter, refused heparin and ceftriaxone. [...] CICU floor as he does not want [place] Maria C catheter Code status: full EKG [...] care 30 minutes. Kathleen Burden MD MPH Weigher Production and Endovascular Specialist * Guadalupe Mccarthy DO [...] included. Spoke to patient's significant other, Kaitlin Padillador on the phone at [phone]. She stated that she understood the patient [...] Spoke to patient's relative Nanci Medina at [phone]. The same information as above was given. She states that the patient needs to decide what his goals are and make decisions like an adult. She will also come to the hospital. Brother Vance Medina called from [phone] inquiring updates and was given the same [...] from the original note were not included. [place] [id number] FAMILY MEDICINE INPATIENT SERVICE PROGRESS NOTE Carlo Medina 44 year old 166.4 lbs MRN/Room: [id number] : 1980 Admit Date: 09/30/2024 Chief Complaint Patient presents with Shortness of breath Pt c/o right sided rib pain, sob. Diarrhea x1 week, vomiting yesterday with cough and congestion. Hospital Course: Carlo Medina is a 44 year old male with PMHx of HFrEF (EF 18% 07/2024), LBBB, HTN, HLD, bilateral DVT (05/2024), and CKD 3 who presented to [place] ED on 09/30/2024 for SOB and R [...] PO. Pt was [facility] to [facility]. Patients echo showed an [...] cirrhosis, and CKD 3 who presented to [place] ED on 09/30/2024 for SOB and R [...] and doxycycline 100 mg PO BID (SD 4/3) -F/u strep pneumo antigen and legionella antigen [...] preliminary until discussed with/finalized by attending physician, Dr. Ennis, MD Renetta Kerr MD Family Medicine, PGY-1 FM Team Pager: [phone] * Lesly Luna RN - 10/01/2024 12:20 [...] ABUSE SERVICES No ADMISSION INSURANCE Private Insurance ([employer] INDIVIDUAL EXCHANGE/[employer] INDIVIDUAL EXCHANGE) TRANSPORTATION TO AND/OR [...] warranted. Lesly Luna RN, BSN Case Management [phone] M-F 7:30-4:00 * Ramin Lopez RN - 10/01/2024 4:[address] Hutchinson notified of critical Lactate value of 3.5. Dr. Hutchinson read back critical results. New orders not received. documented in this [id number] Progress note* Progress Notes - Willie - [...] Carlo Medina is a 44yo M w H HFrEF (dx 05/2024), HTN, CKD, hx of DVT who was admitted 09/30for SOB and pleuritic pain found to be in cardiogenic shock and acute on chronic renal failure. Dueto patient demands, IV medications were discontinued and he was transferred to F. This am, he is in agreement with [...] he agrees to labs. At this point, [facility] care/family mtg may be necessary at least to document discussion of and attempt to direct care counselor pt and girlfriend on the severity of disease and to address code status again. On tele. Julio Jauregui MD [employer] Work Phone: [phone] 362-768904-08-2025 Miscellaneous Notes* Progress Notes - NoteWriter - [...] were discontinued and he was transferred to [facility]. This am, he is in agreement with [...] HFrEF (heart failure with reduced ejection fraction) ([facility]) Acute kidney injury superimposed on CKD (HCC) Pneumonia of right lower lobe due to infectious organism Acute decompensated HFrEF w/o C as far as could be found on [...] to document discussion of and attempt to direct care counselor pt and girlfriend on the severity [...] Carlo Medina : 1980 Sex: male Room: [place] [address] Admit Date: 09/30/2024 Today's Date: 10/04/2024 Hospital [...] [] [] Signature Shane Omalley MD (he/him) Pre Sales Technical Consultant PGY-2 10/04/24 * Discharge Planning Note - [...] warranted. Michelle Umana BSN RN CMSRN PRN Quality Control Engineer * Progress Notes - NoteWriter - Soraida Pedroza, CRISTINE - 10/04/2024 12:30 AM EDT 12:30 AM Patient refusing labs at this time * Hospital Course - Guadalupe Mccarthy DO - 10/03/2024 11:10 AM EDT Carlo Medina is a 44 year old male admitted on 09/30/2024 with a PMH of HFrEF (EF 18% 08/11/24), LBBB, HTN, HLD, hx DVT, cirrhosis, CKD3 who was admitted to [facility] service for acute decompensated heart failure and [...] doxycycline with cocern for CAP. Admitted to [facility]. Echo done with EF 15%, severe MR, [...] * Progress Notes - NoteWriter - Soraida Pedroza RN - 10/03/2024 12:58 AM EDT 12:58 AM Unable to obtain lab work due to lack of access, patient is difficult stick and refusing peripheralsticks. * Transfer Note - Carleen Weber MD - 10/01/2024 4:00 PM EDT TRANSFER NOTE Patient: Mr. Carlo Medina, a 44 year old (Full Code) Room: [address] [id number] 1980 FROM [facility] TO cardiac icu Admit Date: 09/30/2024 Today's Date: 10/01/2024 Length of stay: 1 day(s) HOSPITAL COURSE: Carlo Medina is a 44 year old male w/ PMH of HFrEF (18% by TTE 08/11/24), LBBB, HTN, HLD, bilateral DVT (05/2024), and CKD 3 who presented to [place] ED on 09/30/2024 for SOB and R [...] Refer to progress notes Report called to concrete finishing machine operator at 6:36 PM Carleen Weber MD Family Medicine PGY-2 documented in this [id number] Consult note* Deena Yan, OT - 10/05/2024 [...] medical team to re-consult therapy . Deena SHOOK, OTR/L (Message Via Secure Chat as Needed) [id number] Consult note* Deena Yan OT - 10/05/2024 [...] of any further assistance. Calin Hearn MD, [facility] Clinical Ethics Fellow, [facility] 20/01 Clinical Ethics Consult Pager: [phone] * Faith Gan PT - 10/03/2024 9:00 AM EDT PHYSICAL THERAPY-DISCHARGE Attempted to see patient for PT session, however pt currently declining any further therapy needs. Patient reporting independence with functional mobility and no concerns for a decline in his independence. Pt requesting DC from PT services Will respectfully DC PT Faith Gan PT, DPT Secure chat with questions * Ronnie Luba - 10/02/2024 5:07 PM EDTAssociated Order(s): IP [...] of Daily Living - girlfriend completes all house moving supervisor, driving and meals (-) works, in the process of applying for disability (-) falls Assistance Available at Home: Girlfriend 20/01 Patient lives in a ranch story home 4 stairs to enter. Full Bathroom on residing level and Bedroom on residing level. Equipment available at home: no equipment OBJECTIVE: Patient Identification: patient verbalizing his/her name and date of . 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 If any questions contact [facility] DME Provider at [phone]. 10/02/2024 6 Clicks Daily Activity OT Help [...] Guard Assist/Supervision 4 - Non = Modified [place]/Independent ASSESSMENT: Will continue to follow patient while [...] NA = Not Assessed, I = Independent, AZ = Modified Independent, Sup = Supervised, Set [...] Referral received, chart reviewed. Patient seen from 0924 to 0956 on CICU unit for 32 minutes. Eval + Tx Admit date: 09/30/2024 4:07 PM Reason for Admit: 44 year old male presenting with PNA, ADHF, concern for cardiogenic shock Diagnosis: Pneumonia of right lower lobe due to infectious organism [J18.9] Hypervolemia, unspecified hypervolemia type [E87.70] HFrEF (heart failure with reduced ejection fraction) ([facility]) [I50.20] Acute kidney injury superimposed on CKD (HCC) [N17.9, N18.9] Precautions: Falls Risk: Moderate Code Status: Full Diet: 2 GM sodium, 2000 cc fluid Activity Orders: Progressive mobility Past Medical and Surgical History: PMH: Past Medical History: Diagnosis Date Chronic systolic heart failure (HCC) DVT (deep venous thrombosis) ([facility]) Hypercholesteremia Iron deficiency anemia Stage 2 chronic [...] Patient Identified Goal(s): to return to PLOF 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 Roasline Rivero PT, DPT NA = Not Assessed, I = Independent, AZ = Modified Independent, Sup = Supervised, Set [...] 10/01/2024 10:00 AM Name: Carlo Medina Room: [facility]709/2 : 1980 male 44 year old Admit [...] fluids, continues to trend down. Follows at [facility]. Last seen recently in Jul, with some [...] PRN: metoclopramide 10 mg Q6H PRN MEDICATIONS FURNACE COMBUSTION ANALYST: Prior to Admission medications Medication Sig Start Date End Date Taking? Authorizing Provider Apixaban (ELIQUIS) 5 MG tablet Take 5 mg by mouth 2 times daily. [facility] PROVIDER Cholecalciferol 50 MCG (1999) CAPS Take 1 Capsule by mouth daily. [facility], PROVIDER losartan (COZAAR) 50 MG tablet Take 50 mg by mouth daily. 08/04/24 08/04/25 [facility]- [facility], PROVIDER losartan (COZAAR) 25 MG tablet 07/30/24 [facility], PROVIDER magnesium oxide (MAG-OX) 400 (240 Mg) MG TABS tablet Take 400 mg by mouth daily. 07/31/24 [facility], PROVIDER metoprolol (TOPROL-XL) 25 mg XL tablet Take 25 mg by mouth daily. 08/21/24 08/21/25 [facility], PROVIDER pantoprazole (PROTONIX) 40 MG tablet Take 40 mg by mouth daily. [facility], PROVIDER potassium chloride SA (K-DUR) 20 MEQ controlled release tablet 07/30/24 NON- [facility], PROVIDER sodium bicarbonate 650 MG tablet Take 2 Tablets by mouth 2 times daily. NON- [facility], PROVIDER spironolactone (ALDACTONE) 25 MG tablet Take 25 mg by mouth daily. 08/04/24 08/04/25 NON-[facility], PROVIDER hydrALAZINE (APRESOLINE) 25 MG tablet 1 tablet with food Orally three times a day NON-[facility], PROVIDER isosorbide dinitrate (ISORDIL) 20 MG tablet Take 3 Tablets by mouth 3 times daily. NON-[facility], PROVIDER metoclopramide (REGLAN) 5 MG tablet Take [...] -- -- -- -- Room air -- 09/30/245 -- 97.9 F (36.6 C) Oral -- [...] (!) 103 15 96 % -- -- 09/30/241909 107/86 -- -- (!) 104 13 100 [...] results found for: LVEF EF 18% at [facility]: Non-obstructive CAD IMPRESSION Acute on chronic HFrEF with low cardiac output state Severe MR Severe TR Type 2 AZ 2/2 supply demand mismatch RECOMMENDATIONS - Recommend [...] Department of Cardiovascular Diseases Heart and Vascular [place] [facility] Teaching Physician Note: I saw [...] note were not included. Dietitian vs DietaryTech: [employer] Diet Rock Crusher Operator Nutrition Screening Reason for visit: Positive nutrition [...] Will continue to follow, Janay Melo, Diet Rock Crusher Operator Pager [phone] Time spent on patient care: 30 minutes documented in this [id number] Progress note* Transfer Note - Shane Omalley MD - 10/04/2024 4:08 PM EDT Images from the original note were not included. . Provider Called Report To (Enter Provider Name, Service, and Time): Eugene Nova MD, Med Resident Teams 16:30 CICU Transfer Note Patient: Carlo Medina : 1980 Sex: male Room: [place] [address] Admit Date: 09/30/2024 Today's Date: 10/04/2024 Hospital [...] [] [] Signature Shane Omalley MD (he/him) Pre Sales Technical Consultant PGY-2 10/04/24 [id number] Progress note* Discharge Planning Note - Michelle Umana RN - 10/04/2024 12:39 PM EDT CASE MANAGEMENT CM [facility] Ethics is following d/t patient declining recommended [...] warranted. Michelle Umana BSN RN CMSRN PRN Quality Control Engineer [id number] Progress note* Progress [facility] - [facility] - Soraida Pedroza RN - 10/04/2024 12:30 AM EDT 12:30 AM Patient refusing labs at this time [id number] Consult note* Calin Hearn - 10/03/2024 6:37 PM EDT Associated Order(s): ETHICS COMMITTEE CONSULT Clinical Ethics was [...] of any further assistance. Calin Hearn MD, [facility] Clinical Ethics Fellow, [place] [facility] 20/01 Clinical Ethics Consult Pager: [phone] [id number] Hospital Note* Hospital Course - Guadalupe Mccarthy, [...] doxycycline with cocern for CAP. Admitted to [facility] medicine. Echo done with EF 15%, severe [...] want to be hooked up to lines. [id number] Consult note* Faith Gan, PT - 10/03/2024 9:00 AM EDT PHYSICAL THERAPY-DISCHARGE Attempted to see patient for PT session, however pt currently declining any further therapy needs. Patient reporting independence with functional mobility and no concerns for a decline in his independence. Pt requesting DC from PT services Will respectfully DC PT Faith Gan, PT, DPT Secure chat with questions [id number] Progress note* Progress Notes - NoteWriter - Soraida Pedroza RN - 10/03/2024 12:58 AM EDT 12:58 AM Unable to obtain lab work due to lack of access, patient is difficult stick and refusing peripheralsticks. [id number] NoteEXAMINATION: XR CHEST AP OR PA 1 [...] Continued follow-up exam is recommended. MACRO: None [id number] Procedure note* Guadalupe Mccarthy DO - 10/02/2024 [...] ultrasound image is not saved to the [employer] system with patient information. Guadalupe Mccarthy DO Internal Medicine/Pediatrics PGY-2 Cosigned by Steven Laguna MD at 10/03/2024 6:38 AM EDT [id number] Procedure note* Guadalupe Mccarthy DO - 10/02/2024 [...] ultrasound image is not saved to the [employer] system with patient information. Guadalupe Mccarthy DO Internal Medicine/Pediatrics PGY-2 Cosigned by Steven Laguna MD at 10/03/2024 6:38 AM EDT documented in this [id number] Consult note* Luba Trujillo - 10/02/2024 5:07 [...] of Daily Living - girlfriend completes all house moving supervisor, driving and meals (-) works, in the process of applying for disability (-) falls Assistance Available at Home: Girlfriend 20/01 Patient lives in a ranch story home 4 stairs to enter. Full Bathroom on residing level and Bedroom on residing level. Equipment available at home: no equipment OBJECTIVE: Patient Identification: patient verbalizing his/her name and date of . 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 [facility] any [facility] Provider at [phone]. 10/02/2024 6 Clicks Daily Activity OT Help [...] Guard Assist/Supervision 4 - Non = Modified [place]/Independent ASSESSMENT: Will continue to follow patient while [...] NA = Not Assessed, I = Independent, AZ = Modified Independent, Sup = Supervised, Set up = Physical Assistance for Set-up Only, Min = Minimal Assistance, Mod = Moderate Assistance, Max = Max assistance; Dep = Dependent; AROM = Active Range of Motion;PROM=Passive Rangeof Motion; MMT = Manual Muscle Test; UB = Upper Body; LB = Lower Body [id number] Consult note* Rosaline Rivero, PT - 10/02/2024 12:46 PM EDTAssociated Order(s): IP PHYSICAL THERAPY SERVICE REQUEST PHYSICAL THERAPY ACUTE EVALUATION Referral received, chart reviewed. Patient seen from 0924 to 0956 on CICU unit for 32 minutes. Eval + Tx Admit date: 09/30/2024 4:07 PM Reason for Admit: 44 year old male presenting with PNA, ADHF, concern for cardiogenic shock Diagnosis: Pneumonia of right lower lobe due to infectious organism [J18.9] Hypervolemia, unspecified hypervolemia type [E87.70] HFrEF (heart failure with reduced ejection fraction) ([facility]) [I50.20] Acute kidney injury superimposed on CKD ([facility]) [N17.9, N18.9] Precautions: Falls Risk: Moderate Code Status: Full Diet: 2 GM sodium, 2000 cc fluid Activity Orders: Progressive mobility Past Medical and Surgical History: PMH: Past Medical History: Diagnosis Date Chronic systolic heart failure (HCC) DVT (deep venous thrombosis) ([facility]) Hypercholesteremia Iron deficiency anemia Stage 2 chronic [...] Patient Identified Goal(s): to return to PLOF 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 Rsoaline Rivero, PT, DPT NA = Not Assessed, I = Independent, AZ = Modified Independent, Sup = Supervised, Set up = Physical Assistance for Set-up Only, Min = Minimal Assistance, Mod = Moderate Assistance, Max = Max assistance; Dep = Dependent; AROM = Active Range of Motion; PROM = Passive Range of Motion; MMT = Manual Muscle Test; LE = Lower Extremity; VC = verbal cues; TC = tactile cues; PLB = pursed lip breathing [id number] History and physical note* Kathleen Burden MD, MPH - 10/02/2024 12:00 AM EDT Images from the original note were not included. [facility] Cardiac Intensive Care Unit - H&P Note Carlo Medina Age [age] year old male ROOM: [place] [address] Admitted: 09/30/2024 4:07 PM Hospital Day: 2 [...] cirrhosis, and CKD 3 who presented to [place] ED on 09/30/2024 for SOB and R [...] on restarting IV medications and central venous catheter/[place] C catheter Active Medical Problems: - [...] care 30 minutes. Kathleen Burden MD MPH Weigher Production and Endovascular Specialist [id number] History and physical note* Kathleen Burden MD, MPH - 10/02/2024 12:00 AM EDT Images from the original note were not included. [facility] Cardiac Intensive Care Unit - H&P Note Carlo Medina Age [age] year old male ROOM: [place] [address] Admitted: 09/30/2024 4:07 PM Hospital Day: 2 [...] cirrhosis, and CKD 3 who presented to [place] ED on 09/30/2024 for SOB and R [...] Code Emergency Contact: PATIENT: EMERGENCY CONTACT #1: KurtKaitlin (Significant other) home: , work: EMERGENCY CONTACT [...] on restarting IV medications and central venous catheter/[place] Maria C catheter Active Medical Problems: - [...] care 30 minutes. Kathleen Burden MD MPH Weigher Production and Endovascular Specialist * Lance Ennis MD - 10/01/2024 8:56 AM EDT Images from the original note were not included. Family Medicine Attending H&P Carlo Medina [id number] Inpatient Attending/Teaching Physician Note: I saw and [...] DVT and CKD stage 3presented to the [facility] emergency department yesterday with shortness of breath [...] Home when clinically stable Lance Ennis MD [id number] * Harris Hutchinson MD - 09/30/2024 11:12 PM EDT Images from the original note were not included. SENIOR NOTE I saw and evaluated the patient. I personally obtained the reardon and critical portions of the historyand physical exam. I reviewed the sourcing intern's documentation and discussed the patient with the sourcing intern.I agree with the sourcing intern's medical decision making as documented in the sourcing intern's note. Further details provided in the sourcing intern's note. Briefly: SUBJECTIVE Carlo Medina is a 44 year old male w/ PMH of HFrEF (18% by TTE 08/11/24), LBBB, HTN, HLD, bilateral DVT (05/2024), and CKD 3 who presented to [facility] ED on 09/30/2024 for SOB and R [...] normal. Rest of labs and imaging per sourcing intern note ASSESSMENT/PLAN Carlo Medina is a 44 year old male w/ PMH of HFrEF (18% by TTE 08/11/24), LBBB, HTN, HLD, bilateral DVT (05/2024), and CKD 3 who presented to [facility] ED on 09/30/2024 for SOB and R [...] Daily weights and Accurate I/O's Rest per sourcing intern note. Harris Hutchinson MD Family Medicine PGY2 * Pauline Denny MD - 09/30/2024 10:43 PM EDT Images from the original note were not included. [place] [id number] FAMILY MEDICINE INPATIENT SERVICE H&P Carlo Medina [...] (05/2024), and CKD 3 who presented to [facility] ED on 09/30/2024 for SOB and R [...] was this morning prior to going to [facility]. He denies any hematochezia, melena, or hematemesis. Pt also endorses mild chills and cold hands. He denies any headache, dizziness, chest pain, palpitations, or sick contacts. He states he is compliant with medications. Chart Review: Admission 08/31-09/11/24- Presented to [facility] ED for evaluation of intermittent abd pain, N/V, and SOB of 1 wk duration. In the ED, pt presented afebrile, HDS, in no acute distress on RA. Initial workup including BNP 3900, CXR w/ pulmonary vascular congestion, concerning for ADHF. Treated with IVF and Zofran, transferred to [facility] and initially admitted to [facility] on 09/01. HF team consulted 09/02, [...] 2mg was continued. Admission 08/09-08/20/24- Presented to [facility] ED on 08/09/24 for chest pain, SOB, [...] accept IV electrolytes. Nephrology consulted. Notified by [facility] that patient's insurance is out of network, pt accepted for transfer to [facility] but refused bed when it was available. [...] PO. Pt was recommended for admission to [facility] forfurther management. Vitals: 09/30/242122 BP: Pulse: (!) 105 Resp: 12 Temp: [...] injection (50 mcg Intravenous Push Given 09/30/24 1651) sodium chloride 0.9 % iv bolus (0 mL Intravenous IV Stop 09/30/241812) cefepime (MAXIPIME) 2,000 mg in sterile water for injection 20 mL IV push (0 mg Intravenous IV Stop09/30/241908) doxycycline (VIBRA-TABS) 100 MG tablet (100 mg [...] 113/95 -- (!) 103 15 96 % 09/30/241909 107/86 -- (!) 104 13 100 % [...] (05/2024), and CKD 3 who presented to [facility] ED on 09/30/2024 for SOB and R [...] Family Medicine- PGY 1 FM Team Pager: [phone] documented in this [id number] Progress note* Transfer Note - Carleen Weber MD - 10/01/2024 4:00 PM EDT TRANSFER NOTE Patient: Mr. Carlo Medina, a 44 year old (Full Code) Room: [place] [address] 1980 FROM family medicine TO cardiac icu Admit Date: 09/30/2024 Today's Date: 10/01/2024 Length of stay: 1 day(s) HOSPITAL COURSE: Carlo Medina is a 44 year old male w/ PMH of HFrEF (18% by TTE 08/11/24), LBBB, HTN, HLD, bilateral DVT (05/2024), and CKD 3 who presented to [facility] ED on 09/30/2024 for SOB and R [...] Refer to progress notes Report called to concrete finishing machine operator at 6:36 PM Carleen Weber MD Family Medicine PGY-2 [employer] Work Phone: 1(368) 455-221804-04-2025 Consult note* Aryan Cervantes MD - 10/01/2024 10:00 AM EDTAssociated Order(s): IP CARDIOLOGY HEART FAILURE CONSULT Images from the original note were not included. New Patient Consult HF Consult Service 10/01/2024 10:00 AM Name: Carlo Medina Room: [facility]709/2 : 1980 male 44 year old Admit [...] fluids, continues to trend down. Follows at [facility]. Last seen recently in Jul, with some [...] PRN: metoclopramide 10 mg Q6H PRN MEDICATIONS FURNACE COMBUSTION ANALYST: Prior to Admission medications Medication Sig Start Date End Date Taking? Authorizing Provider Apixaban (ELIQUIS) 5 MG tablet Take 5 mg by mouth 2 times daily. [facility] PROVID[facility] Cholecalciferol 50 MCG (2000 UT) CAPS Take 1 Capsule by mouth daily. NON- [facility] PROVID[facility] losartan (COZAAR) 50 MG tablet Take 50 mg by mouth daily. 08/04/24 08/04/25 NON- [facility], [facility] losartan (COZAAR) 25 MG tablet 07/30/24 [facility] magnesium oxide (MAG-OX) 400 (240 Mg) MG TABS tablet Take 400 mg by mouth daily. 07/31/24 [facility] metoprolol (TOPROL-XL) 25 mg XL tablet Take 25 mg by mouth daily. 08/21/24 08/21/25 [facility] pantoprazole (PROTONIX) 40 MG tablet Take 40 mg by mouth daily. [facility] PROVID[facility] potassium chloride SA (K-DUR) 20 MEQ controlled release tablet 07/30/24 NON- [facility], PROVID[facility] sodium bicarbonate 650 MG tablet Take 2 Tablets by mouth 2 times daily. NON- [facility], PROVIDER spironolactone (ALDACTONE) 25 MG tablet Take 25 mg by mouth daily. 08/04/24 08/04/25 [facility] hydrALAZINE (APRESOLINE) 25 MG tablet 1 tablet with food Orally three times a day [facility] isosorbide dinitrate (ISORDIL) 20 MG tablet Take 3 Tablets by mouth 3 times daily. [facility] metoclopramide (REGLAN) 5 MG tablet Take [...] by mouth 2 times daily. 07/16/24 NON- [facility] calcitRIOL (ROCALTROL) 0.5 MCG capsule Take [...] results found for: LVEF EF 18% at [facility]/ [facility]: Non-obstructive CAD IMPRESSION Acute on chronic HFrEF with low cardiac output state Severe MR Severe TR Type 2 AZ 2/2 supply demand mismatch RECOMMENDATIONS - Recommend [...] Department of Cardiovascular Diseases Heart and Vascular [place] [facility] Teaching Physician Note: I saw and evaluated the patient. I personally obtained the reardon and critical portions of the historyand physical exam. I reviewed the resident's documentation and discussed the patient with the resident. I agree with the resident's medical decision making as documented in the resident's note. Aryan Cervantes MD [id number] Consult note* Janay Melo - 10/01/2024 9:04 AM EDT Images from the original note were not included. Dietitian vs DietaryTech: [employer] Diet Rock Crusher Operator Nutrition Screening Reason for visit: Positive nutrition [...] Will continue to follow, Janay Melo, Diet Rock Crusher Operator Pager [phone] Time spent on patient care: 30 minutes [id number] History and physical note* Lance Ennis MD - 10/01/2024 8:56 AM EDT Images from the original note were not included. Family Medicine Attending H&P Carlo Medina [id number] Inpatient Attending/Teaching Physician Note: I saw and [...] DVT and CKD stage 3presented to the [facility] emergency department yesterday with shortness of breath [...] Home when clinically stable Lance Ennis MD [id number] [employer] Work Phone: 1(548) 577-313104-03-2025 History and physical note* Harris Hutchinson MD - 09/30/2024 11:12 PM EDT Images from the original note were not included. SENIOR NOTE I saw and evaluated the patient. I personally obtained the reardon and critical portions of the historyand physical exam. I reviewed the sourcing intern's documentation and discussed the patient with the sourcing intern.I agree with the sourcing intern's medical decision making as documented in the sourcing intern's note. Further details provided in the sourcing intern's note. Briefly: SUBJECTIVE Carlo Medina is a 44 year old male w/ PMH of HFrEF (18% by TTE 08/11/24), LBBB, HTN, HLD, bilateral DVT (05/2024), and CKD 3 who presented to [facility] ED on 09/30/2024 for SOB and R [...] normal. Rest of labs and imaging per sourcing intern note ASSESSMENT/PLAN Carlo Medina is a 44 year old male w/ PMH of HFrEF (18% by TTE 08/11/24), LBBB, HTN, HLD, bilateral DVT (05/2024), and CKD 3 who presented to [facility] ED on 09/30/2024 for SOB and R [...] Daily weights and Accurate I/O's Rest per sourcing intern note. Harris Hutchinson MD Family Medicine PGY2 [id number] History and physical note* Pauline Denny MD - 09/30/2024 10:43 PM EDT Images from the original note were not included. [place] [id number] FAMILY MEDICINE INPATIENT SERVICE H&P Carlo Medina [...] (05/2024), and CKD 3 who presented to [facility] ED on 09/30/2024 for SOB and R [...] was this morning prior to going to [facility]. He denies any hematochezia, melena, or hematemesis. Pt also endorses mild chills and cold hands. He denies any headache, dizziness, chest pain, palpitations, or sick contacts. He states he is compliant with medications. Chart Review: Admission 08/31-09/11/24- Presented to [facility] ED for evaluation of intermittent abd pain, N/V, and SOB of 1 wk duration. In the ED, pt presented afebrile, HDS, in no acute distress on RA. Initial workup including BNP 3900, CXR w/ pulmonary vascular congestion, concerning for ADHF. Treated with IVF and Zofran, transferred to [facility] and initially admitted to [facility] on 09/01. HF team consulted 09/02, [...] 2mg was continued. Admission 08/09-08/20/24- Presented to [facility] ED on 08/09/24 for chest pain, SOB, [...] accept IV electrolytes. Nephrology consulted. Notified by [facility] that patient's insurance is out of network, pt accepted for transfer to [facility] but refused bed when it was available. [...] PO. Pt was recommended for admission to [facility] forfurther management. Vitals: 09/30/242122 BP: Pulse: (!) 105 Resp: 12 Temp: [...] heart failure (HCC), DVT (deep venous thrombosis) ([facility]), Hypercholesteremia, Iron deficiency anemia, Stage 2 chronic [...] 104/90 -- (!) 109 (!) 27 -- 09/30/240 105/88 -- (!) 108 19 98 % [...] (05/2024), and CKD 3 who presented to [facility] ED on 09/30/2024 for SOB and R [...] Mobile Relation: Significant other Secondary Emergency Contact: Daniel Medinaa Mobile Relation: Relative Dispo: Home when medically ready Anticipate discharge once above concerns are resolved. Plan discussed with senior resident, Dr. Hutchinson. Plan is preliminary until discussed with attending physician, Vargas Fisher MD Nicole Touzard, MD ANASTACIA MS Family Medicine- PGY 1 FM Team Pager: [phone] [id number] Emergency department Note* Homar Carey RN - 09/30/2024 7:01 PM EDT Pt refuses to swallow whole pills. Attempted with pudding and water. Pill then crushed and pt refused to take more than half [id number] Emergency department Note* Homar Carey RN - [...] room at the time of the evaluation. Biochemistry Technologist: not needed - patient preferred language is Lithuanian. Carlo Medina is a 44 year old [...] vein thrombosis (DVT) of lower extremity (HCC) [I82.409] HFrEF (heart failure with reduced ejection fraction) ([facility]) [I50.20] History of left bundle branch block (LBBB) [Z86.79] Acute kidney injury superimposed on CKD (HCC) [N17.9, N18.9] Pulmonary vascular congestion [R09.89] SOB (shortness of breath) [R06.02] Cardiogenic shock ([facility]) [R57.0] Pneumonia of right lower lobe due [...] BNP. Given this patient was admitted to [facility] for further management. IMPRESSION AND DISPOSITION Clinical Impression Diagnosis Comment Pneumonia of right lower lobe due to infectious organism [J18.9] Hypervolemia, unspecified hypervolemia type [E87.70] HFrEF (heart failure with reduced ejection fraction) ([facility]) [I50.20] Acute kidney injury superimposed on CKD ([facility]) [N17.9, N18.9] Disposition: Admitted to Floor: Family Medicine Service. Report called to Dr. Hutchinson [facility], 822pm(09/30/242022) The patient has received a [...] Anshu Dominguez on 09/30/2024 documented in this [id number] Emergency department Note* Cipriano Sun RN - 09/30/2024 6:27 PM EDT notified of critical lactate value of 4.3 read back critical results. No New orders [id number] Emergency department Note* Soraida Nixon RN - 09/30/2024 5:[address] BERG NOTIFIED OF CRITICAL LACTATE LEVEL OF 5.0. ORDERS FOLLOWED. [employer] Work Phone: 1(256) 699-833204-03-2025 Physician Emergency department Note* Vargas Berg MD [...] room at the time of the evaluation. Biochemistry Technologist: not needed - patient preferred language is Lithuanian. Carlo Medina is a 44 year old [...] heart failure (HCC) DVT (deep venous thrombosis) ([facility]) Hypercholesteremia Iron deficiency anemia Stage 2 chronic kidney disease Vitamin D deficiency Patient Active Problem List: CKD (chronic kidney disease) [N18.9] Essential hypertension [I10] Elevated liver enzymes [R74.8] Acute deep vein thrombosis (DVT) of lower extremity ([facility]) [I82.409] HFrEF (heart failure with reduced ejection fraction) ([facility]) [I50.20] History of left bundle branch block (LBBB) [Z86.79] Acute kidney injury superimposed on CKD (HCC) [N17.9, N18.9] Pulmonary vascular congestion [R09.89] SOB (shortness of breath) [R06.02] Cardiogenic shock ([facility]) [R57.0] Pneumonia of right lower lobe due [...] HFrEF (heart failure with reduced ejection fraction) ([facility]) [I50.20] Acute kidney injury superimposed on CKD (HCC) [N17.9, N18.9] Disposition: Admitted to Floor: Family Medicine Service. Report called to Dr. Hutchinson, [facility], 822pm(09/30/242022) The patient has received a [...] been documented by Anshu Dominguez on 09/30/2024 [id number] NotePatient Education Material Cardiovascular Chest Pain: Care [...] irregular heartbeat. After you call 911, the concrete finishing machine operator may tell you to chew 1 [...] Where can you learn more? Go to https://www.[employer].net/patientEd Enter A120 in the search box to learn more about Chest Pain: Care Instructions. Current as of: September 05, 2021 Content Version: 13.3 ? [employer]. Care instructions adapted under license by your healthcare professional. If you have questions about a medical condition or this instruction, always ask your healthcare professional. [employer] disclaims any warranty or liability for your [...] ? Your vomiting is (more content not included)...[facility] 09-19-2024 NoteEducation Pharmacy - Anticoagulation Entered On: 09/19/2024 10:13 EDT Performed On: 09/19/2024 10:13 EDT by Shabana Fleming RPh Education Pharmacy Anticoagulation Barriers to Learning : None evident TeachBack Methodology : Printed Material Anticoagulant on Discharge : Apixaban Teach Back Notes : Home Eliquis continued on admission Shabana Fleming RPh - 09/19/2024 10:13 [facility]Order Comment: Request for pharmacy education by irina dowell for patient ordered [id number] NoteImmunization Screening Entered On: 09/18/2024 11:33 EDT Performed On: 09/18/2024 11:33 EDT by Nicole Manning RN Immunization Screening Immunizations Current : Unknown Last Tetanus : Unknown Influenza Vaccine : Yes [place] COVID-19 Vaccine : No Nicole Manning RN - 09/18/2024 11:33 [facility]:Order Comment: Order entered secondary to inpatient admission.Result Comment: [id number] NoteHNO ID: [id number] Author: PAMELA CUETO LPN Service: ? Author Type: LICENSED NURSE Type: Progress Notes Filed: 09/17/2024 18:40 Note Text: Formerly [facility], Ambulatory Surgery Centers and Remote Sites Emergency Response Form. NOT TO BE USED AT [facility] Complete this report when the Emergency Medical Response is activated (911 calls/EmergencyTransport to the ED) or when a Code Sheet is utilized in the care of a patient (i.e., ASC) Date of the Event: [id number] (Must provide Value) Time of the Event:5:43pm (Must provide Value) Was emergency response activated? (Local EMS/Emergency Department) YES (Must provide Value) Location of the Incident:[facility] ([facility]) (Must provide Value) Reason/Chief Complaint for [...] Alert and orientated Transferred to Hospital ED Veterinarian Epidemiologist information: Name of Provider- Pamela Cueto (Must provide value) 0[facility]03-21-2025 History of Present illness Narrative* Pamela Cueto LPN - 09/17/2024 6:17 PM EDT Formerly [facility], Amb[facility] Centers and [facility] Sites Emergency Response Form. NOT TO BE USED AT [facility] Complete this report when the Emergency Medical Response is activated (911 calls/EmergencyTransportto the ED) or when a Code Sheet is utilized in the care of a patient (i.e., ASC) Date of the Event: [id number] (Must provide Value) Time of the Event:5:43pm (Must provide Value) Was emergency response activated? (Local EMS/Emergency Department) YES (Must provide Value) Location of the Incident:[facility] ([facility]) (Must provide Value) Reason/Chief Complaint for [...] Alert and orientated Transferred to Hospital ED Veterinarian Epidemiologist information: Name of Provider- Pamela Cueto (Must provide value) 0 * King Medina, DO - 09/17/2024 5:50 PM EDT [facility] Subjective Carlo Medina is a 44 year [...] CHF, cardiac event that appears to be AZ, though Patient denies AZ. Recently was hospitalized with kidney failure at [facility] and discharged ~5 days ago. Has had [...] (primary diagnosis) Given hx, symptoms, EMS called. [facility] EMS arrived within minutes to take Patient to ED. Patient appears stable upon leaving [facility] for ED via EMS. [...] records: Multiple admissions for CHF, Kidney failure, AZ recently Differential Diagnoses - Concern for cardiac, dehydration, kidney issues is more likely for the following reason(s): suggested by H&P Contributing Factors Chronic conditions affecting care: CHF, AZ, Kidney Disease Chronic conditions addressed by: CHF, AZ, Kidney disease - co-morbidities/risk factors. Disposition The patient was other (comment) (ED via EMS). [facility] NoteHNO ID: [id number] Author: KING MEDINA DO Service: ? Author Type: Physician Type: Progress Notes Filed: 09/17/2024 18:40 Note Text: [facility] Sommer Medina is a 44 year old male. Patient presents with: Shortness of Breath: Heart burn, nausea, vomiting, diarrhea, coughing Chest Pain Patient presents with chest pain, shortness of breath, nausea/vomiting, diarrhea, cough. Cough, chest pain, shortness of breath times ~4-5 days. N/v/d started ~1 day ago. He cannot keep anything down today. No fevers/chills. Hx of CHF, cardiac event that appears to be AZ, though Patient denies AZ. Recently was hospitalized with kidney failure at [facility] and discharged ~5 days ago. Has had [...] (primary diagnosis) Given hx, symptoms, EMS called. [facility] EMS arrived within minutes to take Patient to ED. Patient appears stable upon leaving [facility] for ED via EMS. - ECG COMPLETE - Cancelled. We attempted to obtain an EKG here, but EMS arrived, and Patient was taken by squad to ED. 2. Nausea vomiting and diarrhea - ICD9: 787.91, 787.01, ICD10: R11.2, R19.7 King Medina, History and Record Review External record(s) reviewed: prior inpatient record. Findings from review of inpatient records: Multiple admissions for CHF, Kidney failure, AZ recently Differential Diagnoses - Concern for cardiac, dehydration, kidney issues is more likely for the following reason(s): suggested by HANDP Contributing Factors Chronic conditions affecting care: CHF, AZ, Kidney Disease Chronic conditions addressed by: CHF, AZ, Kidney disease - co-morbidities/risk factors. Disposition The patient was other (comment) (ED via EMS).[facility] 09-11-2024 NoteThe [facility]03-11-2025 NoteConsults Pt was scheduled for diagnostic paracentesis this afternoon. I was notified by staff that patient refused to have procedure done. Christopher Barakat DO CT/US Procedure ServiceThe [facility]03-05-2025 NotePT A AND OX4. TRANSPORTED TO [facility] WITH [facility]. PT AWARE OF ADMIT AND PLAN OF CARE.[facility]02-26-2025 NoteSee heart failure outreach telephone encounter.[facility]02-26-2025 Telephone encounter Note* Telephone Encounter - Manuela White RPh - 08/25/2024 10:27 AM EST See heart failure outreach telephone encounter. [facility] [employer] Work Phone: 1(853) 291-349602-26-2025 Miscellaneous Notes* Telephone Encounter - Manuela White RPh - 08/25/2024 10:27 AM EST See heart failure outreach telephone encounter. * Telephone Encounter - Ally Machado RN - 08/23/2024 8:41 AM EST 08/09/24-08/20/24 [facility] Admission, Dr Villalobos consult Complicated by refusal to accept IV electrolyte infusions He also refused metro transfer then a bed was avail Again declined life vest 08/22/24 (9:14pm)- [facility] ER- left AMA 08/23/24 (5:25am)- [facility] ER- left AMA [facility]. Left a brief VM. * Telephone Encounter - Manuela White RPh - 08/23/2024 8:11 AM EST Discharged with heart failure. Needs 72 hour post discharge phone call. documented in this [facility]02-26-2025 Telephone encounter Note* Telephone Encounter - Dia Gaitan RN - 08/25/2024 8:07 AM EST HF casing crew: Well known to this RN for 9 HF hospitalizations and 5 ED visits since 01/2024. HFS believed pt to be in low output HF during most recent hospitalization, but pt was refusing any invasive testing as well as intermittently refusing labs and medications. Noted pt in the emergency dept for the third time since hospital discharge on 08/20 (left AMA from [facility] and [facility]). This AM, presented to [facility] ED with N/V/abd pain- renal function and liver enzymes elevated. Per ED note, pt refused assessment from provider required for transfer to [facility] and insisted on leaving. Discussed case with PALMIRA Fernandez BASE WAD OPERATOR ADJUSTER. Call to pt. Pt answered and hung up right away twice, did answer on the third attempt. Asked pt about current symptoms, he stated you know, the same old thing- my heart and kidneys are bad. Discussed that current symptoms and lab work (n/v/abd pain, SCHUYLER, hepatic congestion, etc) could be related to low output HF/failure of oral therapy. [facility] [...] Pt then hung up the phone. Next [facility] follow up scheduled with Dr. Astudillo on 09/02 at 11:30AM. [facility] [id number] Miscellaneous Notes* Telephone Encounter - Dia Gaitan RN - 08/25/2024 8:07 AM EST HF casing crew: Well known to this RN for 9 HF hospitalizations and 5 ED visits since 01/2024. [facility] believed pt to be in low output HF during most recent hospitalization, but pt was refusing any invasive testing as well as intermittently refusing labs and medications. Noted pt in the emergency dept for the third time since hospital discharge on 08/20 (left AMA from [facility] and [facility]). This AM, presented to [facility] ED with N/V/abd pain- renal function and liver enzymes elevated. Per ED note, pt refused assessment from provider required for transfer to [facility] and insisted on leaving. Discussed case with Rayna Townsend [facility] BASE WAD OPERATOR ADJUSTER. Call to pt. Pt answered and hung up right away twice, did answer on the third attempt. Asked pt about current symptoms, he stated you know, the same old thing- my heart and kidneys are bad. Discussed that current symptoms and lab work (n/v/abd pain, SCHUYLER, hepatic congestion, etc) could be related to low output HF/failure of oral therapy. Pt expressed frustration that [facility] will not admit him anymore (insurance is [...] Pt then hung up the phone. Next [facility] follow up scheduled with Dr. Astudillo on 09/02 at 11:30AM. documented in this [facility]02-26-2025 Emergency department Note* Obdulia Sanchez RN - 08/25/2024 2:35 AM EST Patient refusing covid/flu swab stating I would know if I had that and I haven't gotten it since it came out. Dr. Schaffer notified and aware. [facility] [id number] Emergency department Note* Obdulia Sanchez RN - 08/25/2024 2:35 AM EST Patient refusing covid/flu swab stating I would know if I had that and I haven't gotten it since it came out. Dr. Schaffer notified and aware. * Vargas Beach DO - 08/25/2024 1:11 AM EST Emergency Department Encounter Location: [facility] ED Patient: Carlo Medina : 1980 Date [...] 401 ms QTC Interval 565 ms P Cylinder 47 degrees QRS Cylinder -86 degrees T Wave Cylinder 69 degrees DE Interval 127 ms CBC auto differential Collection [...] network, plan was to transfer him to [facility] during admissionhowever he refused transfer and signed out AMA. Cardiology recommended [place] guided therapy for his heart failure however [...] symptoms, plan was to transfer him to [facility] where his insurance is excepted. I introduced myself at 7 AM to evaluate the patient. Patient refused my evaluation, states I do not know why you are evaluating me if I cannot even be admitted here. I told him that I will be the one speaking with the transfer center with [facility] and that I needed to perform a physical examinationon him to discuss with the providers at [facility] about the transfer, patient refused my evaluation, [...] Beach DO 08/25/24 0758 documented in this [facility]02-26-[facility]25 Physician Emergency department Note* Vargas Beach DO - 08/25/2024 1:11 AM EST Emergency Department Encounter Location: [facility] ED Patient: Carlo Medina : 1980 Date of evaluation: 08/25/2024 ED Provider: Vargas Beach, DO Time received sign-out: 700 Carlo Medina [...] 401 ms QTC Interval 565 ms P Cylinder 47 degrees QRS Cylinder -86 degrees T Wave Cylinder 69 degrees DE Interval 127 ms CBC auto differential Collection [...] network, plan was to transfer him to [facility] during admissionhowever he refused transfer and signed out AMA. Cardiology recommended [place] guided therapy for his heart failure however [...] symptoms, plan was to transfer him to [facility] where his insurance is excepted. I introduced myself at 7 AM to evaluate the patient. Patient refused my evaluation, states I do not know why you are evaluating me if I cannot even be admitted here. I told him that I will be the one speaking with the transfer center with [facility] and that I needed to perform a physical examinationon him to discuss with the providers at [facility] about the transfer, patient refused my evaluation, [...] dictations but occasionally words are mis-transcribed.) Vargas Beach, DO MAY [employer] Vargas Beach DO 08/25/24 0758 [facility] [id number] Telephone encounter Note* Telephone Encounter - Ally Machado RN - 08/23/2024 8:41 AM EST 08/09/24-08/20/24 [facility] Admission, Dr Villalobos consult Complicated by refusal to accept IV electrolyte infusions He also refused [facility] transfer then a bed was avail Again declined life vest 08/22/24 (9:14pm)- [facility] ER- left AMA 08/23/24 (5:25am)- [facility] ER- left AMA [facility]. Left a brief VM. [facility] [id number] Miscellaneous Notes* Telephone Encounter - Ally Machado RN - 08/23/2024 8:41 AM EST 08/09/24-08/20/24 [facility] Admission, Dr Villalobos consult 08/22/24 (9:14pm)- [facility] ER- left AMA 08/22/24 (5:25am)- [facility] ER- left AMA * Telephone Encounter - Manuela White RPh - 08/23/2024 8:11 AM EST Discharged with heart failure. Needs 72 hour post discharge phone call. documented in this encounterSFisher-Titus Medical [id number] Miscellaneous Notes* Telephone Encounter - Ally Machado RN - 08/23/2024 8:41 AM EST 08/09/24-08/20/24 [facility] Admission, Dr Villalobos consult Complicated by refusal to accept IV electrolyte infusions He also refused [facility] transfer then a bed was avail Again declined life vest 08/22/24 (9:14pm)- [facility] ER- left AMA 08/23/24 (5:25am)- [facility] ER- left AMA [facility] to [facility], no answer. Left a brief VM. * Telephone Encounter - Manuela White RPh - 08/23/2024 8:11 AM EST Discharged with heart failure. Needs 72 hour post discharge phone call. documented in this encounterSFisher-Titus Medical [id number] Telephone encounter Note* Telephone Encounter - Manuela White RPh - 08/23/2024 8:11 AM EST Discharged with heart failure. Needs 72 hour post discharge phone call. [facility]: [phone] 927-701702-24-2025 Emergency department Note* Maritza Huff RN - 08/23/2024 7:27 AM EST Patient is refusing the IV and lab work. Patient also refusing the Lopressor. Patient reports that he can't swallow meds. This nurse offered to put it in pudding. Patient then reports he does not take medication this early in the morning. Patient given ice water. Dr. Loaiza aware. [facility] [id number] Emergency department Note* Maritza Huff RN - 08/23/2024 7:27 AM EST Patient is refusing the IV and lab work. Patient also refusing the Lopressor. Patient reports that he can't swallow meds. This nurse offered to put it in pudding. Patient then reports he does not take medication this early in the morning. Patient given ice water. Dr. Loaiza aware. * Ladarius Guevara RN - 08/23/2024 6:57 AM EST Pt. Ambulated to bathroom. Will monitor for pt. Return to room. * Vic Loaiza MD - 08/23/2024 5:25 AM EST Emergency Department Encounter Location: [facility] ED Patient: Carlo Medina : 1980 Date of evaluation: 08/23/2024 ED Provider: Vic Loaiza MD Time received sign-out: 07 Carlo Medina was checked out to me [...] 380 ms QTC Interval 535 ms P Cylinder 58 degrees QRS Cylinder -78 degrees T Wave Cylinder 76 degrees DE Interval [address] abdomen pelvis wo [...] said he wanted to be transferred to [facility] because he still has symptoms. The cxr [...] notified of patient arrival. documented in this [facility]02[facility] Emergency department Note* Ladarius Guevara RN - 08/23/2024 6:57 AM EST Pt. Ambulated to bathroom. Will monitor for pt. Return to room. [facility] [id number] Hospital Discharge instructions* Discharge Instructions* Joel Roa MD - 08/23/2024 6:47 AM EST Continue your current medications. Keep your appointment with your hydraulic corrugating machine operator next week. * Attachments The following attachments cannot be sent through Care Everywhere. * Heart Failure Discharge Instructions, Adult (Lithuanian) documented in this [facility]02-24-[facility] Emergency department Triage note* Ladarius Guevara [...] per protocol. Provider notified of patient arrival. [facility] [id number] Physician Emergency department Note* Vic Loaiza MD - 08/23/2024 5:25 AM EST Emergency Department Encounter Location: [facility] ED Patient: Carlo Medina : 1980 Date [...] 380 ms QTC Interval 535 ms P Cylinder 58 degrees QRS Cylinder -78 degrees T Wave Cylinder 76 degrees DE Interval [address] abdomen pelvis wo [...] said he wanted to be transferred to [facility] because he still has symptoms. The cxr [...] MD [employer] Vic Loaiza MD 08/23/24 0725 [facility] [id number] Nurse Note* Jacque Clark RN - 08/20/2024 3:01 PM EST . IV heplock removed. Discharge instructions reviewed with patient. All questions answered. Pt discharged to home with all belongings. * Jacque Clark RN - 08/20/2024 2:37 PM EST Pt adamant on leaving right now. Pt does not want meds to beds Patient would like medications sent to the [facility] in [place] on [address] Aguilar notified via secure chat. * Jacque Clark RN - 08/20/2024 11:[address] Briones notified regarding pt refusing meds and lab draw. * Jacque Clark RN - 08/20/2024 7:[address] Aguilar notified tele order . Okay to have patient off tele. * Yue Patterson RN - 08/18/2024 7:22 PM EST [facility] called and states that patient has a bed assignment, this RN told patient he has a bed and patient states he does not want to go now because he will be getting discharged tomorrow or Friday. Explained to patient that he is out of network and his stay is not covered, patient states complete understanding of the situation and politely declines going to [facility]. I updated Dr. Webb from [facility] regarding patient refusal to leave. [facility] called and updated that patient refusing togo. * Sonia Zambrano RN - 08/18/2024 9:32 AM EST Updated [facility] with patient vitals [facility] still does not have a bed [facility] will call when one is available * [...] be removed on dayshift, patient refusing for staff radiologist's to place IV, despite places to poke, [...] Dr. Peterson of [facility]. Pt asymptomatic. Mag level added to morning labs. * Luma Rangel RN - 08/14/2024 1:33 AM EST Pt refused bloodwork this night, RN attempted to educate on reasons why bloodwork being drawn daily. Notified Dr. Hawley. * Soraida Garsia RN - 08/13/2024 6:28 AM EST RN notified Dr. Hawley that patient is refusing all labs this morning. documented in this [facility]02-21-2025 Miscellaneous Notes* Care Plan - Jacque Clark RN - 08/20/2024 12:54 PM EST * Care Coordination - Rima Reyes RN - 08/20/2024 12:24 PM EST Cardiology has signed off. Now on PO diuretics. Nephrology following. We do not take pt insurance, has refused transfer to [facility]. Anticipate discharge next 24 hrs, home with [...] will be discharged. Refused to go to [facility] last night. We do not accept hisinsurance. [...] information and a social security phone number [phone]. Explained that pt would need to contact [...] PM EST Has an accepting DR at [facility], no beds. Continues on IV Bumex. Plan [...] take his insurance. Can only go to [facility]. Made Dr aware, he is waiting for a return call to see if we can transfer. . 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 Met with pt to [...] given to pt. * Care Plan - Earlene Mondragon RN - 08/12/2024 1:19 AM EST [...] any questions or concerns. DAVID Bajwa PA-C [facility] * Individualized Overall Plan of Care Note - Enedina Vega MD - 08/11/2024 10:58 AM EST Images from the original note were not included. Patient: Carlo Medina Room number: [id number] Date of Admit: 08/09/2024 LOS: 2 days Consult acknowledged Patient had been seen by [facility] - will transfer for continuity of care. Thank you Pager: [phone] Office: [phone]. * Care Coordination - MADDIE Hawk - 08/11/2024 10:55 AM EST 30 day re-admit completed. 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 Pt presents with worsening SOB/CARRERA, [...] restriction diet Weights with parameters Confirmed having [facility] phone number to report new/worsening symptoms and that IV/IM lasix available in the office. OK with continuing in [place] at [facility] for now, but would like to eventually get into [place] office. Importance of medication compliance Heart Failure Accreditation Quality Metrics All Clinical Practice Guidelines and references available on the [facility] Heart Failure resource page (Resources --> [facility] --> Heart Failure) Established Bun Panner: Dr. Astudillo Follow up scheduled within 14 [...] SCHUYLER on CKD (Treatment pathway available on [facility] Heart Failure resource page) LUCRECIA/ARB/ARNI: No BB: Yes, carvedilol 25mg BID MRA: No- 12.5mg spironolactone daily on hold SGLT2-I: No Diuretic: Yes, bumex 1mg PO BID Hydral/ISDN: No ENGINE DYNAMOMETER TESTER-D Appropriateness Screen (Referral pathway available on [facility] Heart Failure resource page) LVEF < 35%: [...] is improving Outcome: Progressing documented in this [facility]02-21-2025 [facility] 08-20-2024 History of Present illness Narrative* Alonzo [...] adamantly refusing swan. Nephrology consulted/following. Notified by [facility] that patient's insurance is out of network, so called [facility] transfer line and discussed with hospitalist; patient accepted for transferto [facility] pending bed availability. Interval History: No acute [...] of IV medications per staff 08/19 Declined [facility] tx yesterday PM No CP today Sob [...] HFrEF (heart failure with reduced ejection fraction) ([facility]) 06/13/2024 Acute kidney injury superimposed on CKD ([facility]) ([facility]) 07/03/2024 At risk for obstructive sleep apnea 05/31/2024 o/p sleep study recommended during admission CHF (congestive heart failure) ([facility]) CKD (chronic kidney disease) H/O noncompliance with medical treatment, presenting hazards to health 06/19/2024 HFrEF (heart failure with reduced ejection fraction) ([facility]) 04/28/2024 History of left bundle branch block (LBBB) 06/19/2024 Hypercholesteremia Hypertension Left against medical advice 08/04/2024 Noncompliance 06/19/2024 NSTEMI (non-ST elevated myocardial infarction) ([facility]) 07/11/2024 Potential for deficient knowledge of congestive heart failure 08/05/2024 Pulmonary embolism ([facility]) Pulmonary vascular congestion 04/28/2024 Sinus tachycardia 06/19/2024 LABS: CBC: Recent Labs 08/18/24 0359 08/19/24 0043 08/20/24 0510 WBC 8.4 7.5 8.2 RBC 4.37* 4.25* 4.28* HGB 14.7 14.1 14.2 HCT 44.5 42.1 42.1 MCV 101.8* 99.1* 98.4 RDW 12.8 12.7 12.4 PLT 288 280 291 BMP: Recent Labs 08/19/24 0043 08/19/24 1852 08/20/24 0510 NA 136 140 138 K 2.9* 3.3* 3.3* CL 96* 98 101 CO2 28 30* 28 BUN 33* 31* 33* CREATININE 1.64* 1.50* 1.31* GLUCOSE 150* 136* 124* CALCIUM 7.9* 7.6* 7.6* ANIONGAP 12 12 9 LIVER PROFILE: Recent Labs 08/18/24 0359 08/19/24 0043 08/20/24 0510 AST 36* 33 33 ALT [...] TCC following for dispo planning. Notified by [facility] that patient's insurance is out of network and need to call [facility] transfer line ([phone]) to see if we can get him transferred. Called [facility] transfer line and discussed with hospitalist. Patient accepted for transfer to [facility] pending bed availability which was noted could [...] - Pending the following - clinical course, urban design consultant recs Extended Emergency Contact Information Primary Emergency Contact: Kaitlin Hicks Mobile Relation: Significant Other Secondary Emergency Contact: Indira Medina Mobile Relation: Sister Alonzo Aguilar MD Division of Hospitalist Medicine [facility] * Saul Briones MD - 08/20/2024 11:00 AM EST [facility] Progress Note Subjective/ 44 y.o. year old male who we are seeing in consultation for CKD stage 3b. Interval History Patient laying in bed, reports breathing feels improved LE edema improved Blood pressures soft. Denies any chest pain or orthopnea ROS Otherwise negative No interval changes to [facility]. All interval notes/labs/imaging reviewed. Objective/ Vitals: 08/19/24 [...] the need for close follow-up. * Soraida Damon, MAGEN - 08/19/2024 1:48 PM EST Nutrition Assessment [...] Mild (BLE Edema: Mild pitting, slight indentation) Drawing Hand Strength: Not Performed BRIEF HOSPITAL COURSE: Carlo [...] insurance is out of network, [facility] with [facility]ist; [facility]. 08/19/24 Interval History: [...] 10. 44M w/ sig PMHx: HFrEF, NICM, ([facility] no CAD 05/2024), HTN, HLD, CKD III, DVTs on OAC), and poor health literacy/poor medication/follow up compliance who presented to [facility] on 08/09/24 2/2 SOB, CP< and abd [...] Intake/Output Summary (Last 24 hours) at 08/19/2024 164 Last data filed at 08/19/2024 1500 Gross [...] (Per patient) % Weight Change (Calculated): 0 [place] Body Weight (lbs) (Calculated): 184 lbs [place] Body Weight (Kg) (Calculated): 84 kg % [place] Body Weight (Calculated): 90.8 % BMI (kg/m2) [...] 0539 07/30/2024 0500 08/04/2024 1002 08/09/2024 2114 08/10/20242100 Weight Method: Standing scale -- Standing scale [...] Soraida Damon MS, RD, LD Contact: or [employer] Chat (dial *[phone] from hospital phone) * Saul Briones MD - 08/19/2024 12:31 PM EST [facility] Progress Note Subjective/ 44 y.o. year old male who we are seeing in consultation for CKD stage 3b. Interval History Patient laying in bed, reports breathing feels improved Continues to endorse occasional non-productive cough Approx 4.75 L UOP yesterday LE edema improved Blood pressures soft. Denies any chest pain or orthopnea ROS Otherwise negative No interval changes to [facility]. All interval notes/labs/imaging reviewed. Objective/ Vitals: 08/19/24 [...] 288 280 Recent Labs 08/17/24 0505 08/18/24 03508/19/24 0043 NA 139 137 136 K 3.3* [...] No primary care provider on file. Room#: [id number] A BRIEF HOSPITAL COURSE: Carlo Medina is [...] adamantly refusing swan. Nephrology consulted/following. Notified by [facility] that patient's insurance is out of network, so called [facility] transfer line and discussed with hospitalist; patient accepted for transferto [facility] pending bed availability. Interval History: No acute overnight events. Cousin present at bedside this AM. Patient laying in bed, Aox3, on room air. States that he is doing better this AM. Reports improvement in SOB and leg swelling. Currently denies fever, chills, chest pain, SOB. During encounter, cousin cayetanoly advised patient to follow recommendations of medical team while admitted. Case and plan discussed with patient and TCC. Questions answered. 08/17 Pt awake Sob stable No CP 08/18 Pt awake Walking in halls No CP Some issues with refusal of IV medications per staff 08/19 Declined [facility] tx yesterday PM No CP today Sob stable Adult diet Regular; No Added Salt (3-4 gm); 2000 ml 24HR INTAKE/OUTPUT: Intake/Output Summary (Last 24 hours) at 08/19/2024 1047 Last data filed at 08/19/2024 0404 Gross per 24 hour Intake 710 ml Output 4350 ml Net -3640 ml Past Medical History: Past Medical History: Diagnosis Date Acute HFrEF (heart failure with reduced ejection fraction) ([facility]) 06/13/2024 Acute kidney injury superimposed on CKD ([facility]) ([facility]) 07/03/2024 At risk for obstructive sleep apnea 05/31/2024 o/p sleep study recommended during admission CHF (congestive heart failure) ([facility]) CKD (chronic kidney disease) H/O noncompliance with medical treatment, presenting hazards to health 06/19/2024 HFrEF (heart failure with reduced ejection fraction) ([facility]) 04/28/2024 History of left bundle branch block (LBBB) 06/19/2024 Hypercholesteremia Hypertension Left against medical advice 08/04/2024 Noncompliance 06/19/2024 NSTEMI (non-ST elevated myocardial infarction) ([facility]) 07/11/2024 Potential for deficient knowledge of congestive heart failure 08/05/2024 Pulmonary embolism ([facility]) Pulmonary vascular congestion 04/28/2024 Sinus tachycardia 06/19/2024 LABS: CBC: Recent Labs 08/17/24 0505 08/18/24 0359 08/19/24 0043 WBC 7.4 8.4 7.5 RBC 4.33* 4.37* 4.25* HGB 14.3 14.7 14.1 HCT 43.3 44.5 42.1 MCV 100.0* 101.8* 99.1* RDW 13.2 12.8 12.7 PLT 274 288 280 BMP: Recent Labs 08/17/24 0505 08/18/24 0359 08/19/24 004 NA 139 137 136 K 3.3* 4.0 2.9* CL 97* 99 96* CO2 30* 25 28 BUN 32* 33* 33* CREATININE 1.53* 1.64* 1.64* GLUCOSE 102* 104* 150* CALCIUM 7.7* 7.8* 7.9* ANIONGAP 12 13 12 LIVER PROFILE: Recent Labs 08/17/24 0505 08/18/24 0359 08/19/24 [...] TCC following for dispo planning. Notified by [facility] that patient's insurance is out of network and need to call [facility] transfer line ([phone]) to see if we can get him transferred. Called [facility] transfer line and discussed with hospitalist. Patient accepted for transfer to [facility] pending bed availability which was noted could [...] - Pending the following - clinical course, urban design consultant recs Extended Emergency Contact Information Primary Emergency Contact: Kaitlin Hicks Mobile Relation: Significant Other Secondary Emergency Contact: Indira Medina Mobile Relation: Sister Alonzo Aguilar MD Division of Hospitalist Medicine [facility] * Sepidehconchita Townsend APRN - OFFICE CORRESPONDENT - 08/19/2024 8:48 AM EST [facility] [place] [facility] Cardiology /Electrophysiology Progress Note HPI / Interval History: Carlo Medina is a 44 year old male with a PMH significant for HFrEF, NICM, ([facility] no CAD 05/2024), HTN, HLD, CKD III, DVTs on OAC), and poor health literacy/ poor medication/follow up compliance who presented to [facility] on 08/09/24 secondary to SOB, chest pain, and abdominal pain. EKG sinus tachycardia. Troponin negative. NT Pro BNP 36585. Cardiology consulted and Pt found to be [...] the cardiology office to obtain appropriate covering VIRTUAL REALITY SPECIALIST/physician. Medications: apixaban, 5 mg, Oral, BID [START [...] ED and Inpatient algorithms. Recent Labs 08/17/24 0505 08/18/24 0359 08/19/24 0043 NA 139 137 136 K 3.3* 4.0 2.9* CL 97* 99 96* CO2 30* 25 28 BUN 32* 33* 33* CREATININE 1.53* 1.64* 1.64* Recent Labs 08/17/24 0505 08/18/24 0359 08/19/24 [...] reviewed: Cardiac Tests: Telemetry findings reviewed: ST EF BP Date Value Ref Range Status 08/11/2024 18 (A) 55 - 100 % Final THOMAS Chapa CNP Date Of Service 08/19/2024 * Alonzo Aguilar MD - 08/18/2024 10:50 AM EST Hospitalist Progress Note 08/18/2024 Subjective: Admit Date: 08/09/2024 PCP: No primary care provider on file. Room#: W5-543/W5-169 A BRIEF HOSPITAL COURSE: Carlo Medina is [...] adamantly refusing swan. Nephrology consulted/following. Notified by [facility] that patient's insurance is out of network, so called [facility] transfer line and discussed with hospitalist; patient accepted for transferto [facility] pending bed availability. Interval History: No acute [...] HFrEF (heart failure with reduced ejection fraction) ([facility]) 06/13/2024 Acute kidney injury superimposed on CKD ([facility]) ([facility]) 07/03/2024 At risk for obstructive sleep apnea 05/31/2024 o/p sleep study recommended during admission CHF (congestive heart failure) ([facility]) CKD (chronic kidney disease) H/O noncompliance with medical treatment, presenting hazards to health 06/19/2024 HFrEF (heart failure with reduced ejection fraction) ([facility]) 04/28/2024 History of left bundle branch block (LBBB) 06/19/2024 Hypercholesteremia Hypertension Left against medical advice 08/04/2024 Noncompliance 06/19/2024 NSTEMI (non-ST elevated myocardial infarction) ([facility]) 07/11/2024 Potential for deficient knowledge of congestive heart failure 08/05/2024 Pulmonary embolism ([facility]) Pulmonary vascular congestion 04/28/2024 Sinus tachycardia 06/19/2024 [...] - Continue chronic medications as able. - [facility] following for dispo planning. Notified by [facility] that patient's insurance is out of network and need to call [facility] transfer line ([phone]) to see if we can get him transferred. Called [facility] transfer line and discussed with hospitalist. Patient accepted for transfer to [facility] pending bed availability which was noted could [...] TBD - patient accepted for transfer to [facility] pending bed availability as patient out of network with insurance here - Pending the following - clinical course, urban design consultant recs Extended Emergency Contact Information Primary Emergency Contact: Kaitlin Hicks Mobile Relation: Significant Other Secondary Emergency Contact: Indira Medina Mobile Relation: Sister Alonzo Aguilar MD Division of Hospitalist Medicine [facility] * Selena Carlisle PA-C - 08/18/2024 10:44 AM EST [facility] Progress Note Subjective/ 44 [...] ROS Otherwise negative No interval changes to [facility]. All interval notes/labs/imaging reviewed. Objective/ Vitals: 08/17/24 [...] any questions or concerns. DAVID Bajwa, RAGHAVC [facility] Office This note is not finalized until authorized by Attending physician. Cosigned by Saul Briones MD at 08/18/2024 2:45 PM EST Associated attestation - Saul Briones MD - 08/18/2024 2:45 PM EST Notes reviewed and plan discussed with the PA. Agree with above note except Any variance is noted below. Saul Briones MD [facility] [phone] * Sepideh Townesnd APRN - OFFICE CORRESPONDENT - 08/18/2024 8:20 AM EST [facility] [place] [facility] [place]Electrophysiology Progress Note HPI / Interval History: Carlo Medina is a 44 year old male with a PMH significant for HFrEF, NICM, ([facility] no CAD 05/2024), HTN, HLD, CKD III, DVTs on OAC), and poor health literacy/ poor medication/follow up compliance who presented to [facility] on 08/09/24 secondary to SOB, chest pain, and abdominal pain. EKG sinus tachycardia. Troponin negative. NT Pro BNP 64777. Cardiology consulted and Pt found to be [...] Dr. Coppola. HF will continue to follow. Pt is pending transfer to [facility] Medications: apixaban, 5 mg, Oral, BID bumetanide, [...] reviewed: Cardiac Tests: Telemetry findings reviewed: ST EF BP Date Value Ref Range Status 08/11/2024 18 (A) 55 - 100 % Final THOMAS Chapa CNP Date Of Service 08/18/2024 * Alonzo Aguilar MD - 08/17/2024 11:58 AM EST Hospitalist Progress Note 08/17/2024 Subjective: Admit Date: 08/09/2024 PCP: No primary care provider on file. [facility] BRIEF HOSPITAL COURSE: Carlo Medina is [...] insurance is out of network, so called [facility] transfer line and discussed with hospitalist; patient accepted for transferto [facility] pending bed availability. Interval History: No acute [...] HFrEF (heart failure with reduced ejection fraction) ([facility]) 06/13/2024 Acute kidney injury superimposed on CKD ([facility]) ([facility]) 07/03/2024 At risk for obstructive sleep apnea 05/31/2024 o/p sleep study recommended during admission CHF (congestive heart failure) ([facility]) CKD (chronic kidney disease) H/O noncompliance with medical treatment, presenting hazards to health 06/19/2024 HFrEF (heart failure with reduced ejection fraction) ([facility]) 04/28/2024 History of left bundle branch block (LBBB) 06/19/2024 Hypercholesteremia Hypertension Left against medical advice 08/04/2024 Noncompliance 06/19/2024 NSTEMI (non-ST elevated myocardial infarction) ([facility]) 07/11/2024 Potential for deficient knowledge of congestive heart failure 08/05/2024 Pulmonary embolism ([facility]) Pulmonary vascular congestion 04/28/2024 Sinus tachycardia 06/19/2024 [...] - Continue chronic medications as able. - [facility] following for dispo planning. Notified by [facility] that patient's insurance is out of network and need to call [facility] transfer line ([phone]) to see if we can get him transferred. Called [facility] transfer line and discussed with hospitalist. Patient accepted for transfer to [facility] pending bed availability which was noted could take awhile (accepting physician: Dr. Govea?). - am labs, replace lytes prn - delirium precautions: increase activity, schedule melatonin at bedtime, and limit nighttime disturbances - DVT prophylaxis: encourage ambulation and already anticoagulated Advance Directive: Full Code Anticipated Discharge - Date - TBD - Location - TBD - patient accepted for transfer to [facility] pending bed availability as patient out of network with insurance here - Pending the following - clinical course, urban design consultant recs Extended Emergency Contact Information Primary Emergency Contact: Kaitlin Hicks Mobile Relation: Significant Other Secondary Emergency Contact: Indira Medina Mobile Relation: Sister Alonzo Otoniel Aguilar MD Division of Hospitalist Medicine [facility] * Sepideh TownsendTHOMAS - OFFICE CORRESPONDENT - 08/17/2024 8:35 AM EST [facility] Cardiology /Electrophysiology Progress Note HPI / Interval History: Carlo Medina is a 44 year old male with a PMH significant for HFrEF, NICM, ([facility] no CAD 05/2024), HTN, HLD, CKD III, DVTs on OAC), and poor health literacy/ poor medication/follow up compliance who presented to [facility] on 08/09/24 secondary to SOB, chest pain, and abdominal pain. EKG sinus tachycardia. Troponin negative. NT Pro BNP 03008. Cardiology consulted and Pt found to be [...] Carlisle PA-C - 08/17/2024 8:27 AM EST [facility]phrology Progress Note Subjective/ 44 y.o. year [...] Intake/Output Summary (Last 24 hours) at 08/17/2024 0827 Last data filed at 08/17/2024 0719 Gross [...] any questions or concerns. DAVID Bajwa PA-C [facility] Office This note is [...] the risk of arrhythmias. Saul Briones MD [facility] [phone] * Edgar Celaya MD - 08/16/2024 9:59 AM EST Hospitalist Progress Note 08/16/2024 Subjective: Admit Date: 08/09/2024 PCP: No primary care provider on file. Room#: [facility] A BRIEF HOSPITAL COURSE: Carlo Medina is [...] adamantly refusing swan. Nephrology consulted/following. Notified by [facility] that patient's insurance is out of network, so called [facility] transfer line and discussed with hospitalist; patient accepted for transferto [facility] pending bed availability. Interval History: No acute overnight events. Cousin present at bedside this AM. Patient laying in bed, Aox3, on room air. States that he is doing better this AM. Reports improvement in SOB and leg swelling. Currently denies fever, chills, chest pain, SOB. During encounter, cousin alejandro advised patient to follow recommendations of medical [...] HFrEF (heart failure with reduced ejection fraction) ([facility]) 06/13/2024 Acute kidney injury superimposed on CKD ([facility]) ([facility]) 07/03/2024 At risk for obstructive sleep apnea 05/31/2024 o/p sleep study recommended during admission CHF (congestive heart failure) ([facility]) CKD (chronic kidney disease) H/O noncompliance with medical treatment, presenting hazards to health 06/19/2024 HFrEF (heart failure with reduced ejection fraction) ([facility]) 04/28/2024 History of left bundle branch block (LBBB) 06/19/2024 Hypercholesteremia Hypertension Left against medical advice 08/04/2024 Noncompliance 06/19/2024 NSTEMI (non-ST elevated myocardial infarction) ([facility]) 07/11/2024 Potential for deficient knowledge of congestive heart failure 08/05/2024 Pulmonary embolism ([facility]) Pulmonary vascular congestion 04/28/2024 Sinus tachycardia 06/19/2024 [...] TCC following for dispo planning. Notified by [facility] that patient's insurance is out of network and need to call [facility] transfer line ([phone]) to see if we can get him transferred. Called [facility] transfer line and discussed with hospitalist. Patient accepted for transfer to [facility] pending bed availability which was noted could take awhile (accepting physician: Dr. Govea?). - am labs, replace lytes prn - delirium precautions: increase activity, schedule melatonin at bedtime, and limit nighttime disturbances - DVT prophylaxis: encourage ambulation and already anticoagulated Advance Directive: Full Code Anticipated Discharge - Date - TBD - Location - TBD - patient accepted for transfer to [facility] pending bed availability as patient out of network with insurance here - Pending the following - clinical course, urban design consultant recs Extended Emergency Contact Information Primary Emergency Contact: Kaitlin Hicks Mobile Relation: Significant Other Secondary Emergency Contact: Indira Medina Mobile Relation: Sister Edgar Celaya MD Division of Hospitalist Medicine [facility] * Selena Carlisle PA-C - 08/16/2024 8:11 AM EST [facility] Progress Note Subjective/ 44 [...] ROS Otherwise negative No interval changes to [facility]. All interval notes/labs/imaging reviewed. Objective/ Vitals: 08/16/24 [...] daily while receiving aggressive IV diuresis, give [id number] meq today -Monitor urine output closely, need strict I&Os -Rest of management per primary team Plan d/w patient and primary team We will follow. Please do not hesitate to call with any questions or concerns. DAVID Bajwa, BRONSON [facility] Office This note is not finalized until authorized by Attending physician. Cosigned by Saul Briones MD at 08/16/2024 5:08 PM EST Associated attestation - Saul Briones MD - 08/16/2024 5:08 PM EST Notes reviewed and plan discussed with the PA. Agree with above note except Any variance is noted below. Saul Briones MD [facility] [phone] * Luis Zavaleta PA-C - 08/16/2024 7:13 AM EST [facility] [place] [facility] [place] /Electrophysiology Progress Note HPI / Interval History: Patient is a 44 year old male with a PMH significant for HFrEF, NICM, HTN who presented to [facility] on 08/09/24 secondary to SOB, chest pain, and abdominal pain. EKG sinus tachycardia. Troponin negative. NT Pro BNP 18555. Cardiology consulted and Pt found to be in ADHF, cold on exam. RHC was recommended, Pt refused. Pt has been intermittently refusing medications/ treatment while inpatient. He has been started on IV diuresis. [facility] May 2024 with no significant CAD. [...] Lying Pulse: 107 98 105 105 Resp: Temp: 36.2 C (97.1 F) 36.4 C [...] ED and Inpatient algorithms. Recent Labs 08/13/24 0924 08/14/24 1036 08/15/24 [...] face diagnostic evaluation on this patient in W5-543/W5-543 A. I have reviewed and agree with [...] Coppola MD, PhD Advanced Heart Failure Cardiology [facility]. [facility] [place] 4:40 PM 08/16/24 * Sheela Adan RD - 08/15/2024 1:03 PM EST Nutrition [...] muscle mass loss Fluid Accumulation: Mild Extremities Drawing Hand Strength: Not Performed Nutrition Assessment: Patient with [...] On: Kcal/kg Weight Used for Energy Requirements: [place] Weight for Energy Calculation (kg): 84 kg Total Energy Requirements (kcals/day): 3158-3092 kcal/day (25-30) Weight Used for Protein Requirements: [place] Weight in Kg Used for Protein Requirements: [...] (Per patient) % Weight Change (Calculated): 0 [place] Body Weight (lbs) (Calculated): 184 lbs [place] Body Weight (Kg) (Calculated): 84 kg % [place] Body Weight (Calculated): 90.8 % BMI (kg/m2) [...] soon to determine Sheela Adan RD Contact: *[phone] * Selena Carlisle PA-C - 08/15/2024 12:10 PM EST [facility] Progress Note Subjective/ 44 [...] ROS Otherwise negative No interval changes to [facility]. All interval notes/labs/imaging reviewed. Objective/ Vitals: 08/15/24 [...] any questions or concerns. DAVID Bajwa, BRONSON [facility] Office This note is not finalized until authorized by Attending physician. Cosigned by Saul Briones MD at 08/15/2024 6:07 PM EST Associated attestation - Saul Briones MD - 08/15/2024 6:07 PM EST Notes reviewed and plan discussed with the PA. Agree with above note except Any variance is noted below. Saul Briones MD [facility] [phone] * Edgar Celaya MD - 08/15/2024 9:17 AM EST Hospitalist Progress Note 08/15/2024 Subjective: Admit Date: 08/09/2024 PCP: No primary care provider on file. Room#: W5-543/W5-561 A BRIEF HOSPITAL COURSE: Carlo Medina is [...] adamantly refusing swan. Nephrology consulted/following. Notified by [facility] that patient's insurance is out of network, [email or web address] and discussed with [facility]ist; patient accepted for transferto [facility] pending bed availability. Interval History: Patient laying [...] HFrEF (heart failure with reduced ejection fraction) ([facility]) 06/13/2024 Acute kidney injury superimposed on CKD ([facility]) ([facility]) 07/03/2024 At risk for obstructive sleep apnea 05/31/2024 o/p sleep study recommended during admission CHF (congestive heart failure) ([facility]) CKD (chronic kidney disease) H/O noncompliance with medical treatment, presenting hazards to health 06/19/2024 HFrEF (heart failure with reduced ejection fraction) ([facility]) 04/28/2024 History of left bundle branch block (LBBB) 06/19/2024 Hypercholesteremia Hypertension Left against medical advice 08/04/2024 Noncompliance 06/19/2024 NSTEMI (non-ST elevated myocardial infarction) ([facility]) 07/11/2024 Potential for deficient knowledge of congestive heart failure 08/05/2024 Pulmonary embolism ([facility]) Pulmonary vascular congestion 04/28/2024 Sinus tachycardia 06/19/2024 LABS: CBC: Recent Labs 08/13/2492308/14/24103508/15/24 0630 WBC 7.4 7.3 8.1 RBC 4.17* 4.13* 4.38* HGB 13.8 13.8 14.7 HCT 40.9 41.7 43.5 MCV 98.1 101.0* 99.3* RDW 13.2 13.3 13.3 PLT 246 258 258 BMP: Recent Labs 08/13/2492308/14/24103508/15/24 0630 NA 136 138 137 K 3.7 [...] TCC following for dispo planning. Notified by [facility] that patient's insurance is out of network and need to call [facility] transfer line ([phone]) to see if we can get him transferred. Called [facility] transfer line and discussed with hospitalist. Patient accepted for transfer to [facility] pending bed availability which was noted could take awhile (accepting physician: Dr. Govea?). - am labs, replace lytes prn - delirium precautions: increase activity, schedule melatonin at bedtime, and limit nighttime disturbances - DVT prophylaxis: encourage ambulation and already anticoagulated Advance Directive: Full Code Anticipated Discharge - Date - TBD - Location - TBD - patient accepted for transfer to [facility] pending bed availability as patient out of network with insurance here - Pending the following - clinical course, urban design consultant recs Extended Emergency Contact Information Primary Emergency Contact: Kaitlin Hicks Mobile Relation: Significant Other Secondary Emergency Contact: Indira Medina Mobile Relation: Sister Edgar Celaya MD Division of Hospitalist Medicine [facility] * Luis Zavaleta PA-C - 08/15/2024 8:05 AM EST [facility] [place] [facility] [place] /Electrophysiology Progress Note HPI / Interval History: Patient is a 44 year old male with a PMH significant for HFrEF, NICM, HTN who presented to [facility] on 08/09/24 secondary to SOB, chest pain, and abdominal pain. EKG sinus tachycardia. Troponin negative. NT Pro BNP 08660. Cardiology consulted and Pt found to be in ADHF, cold on exam. RHC was recommended, Pt refused. Pt has been intermittently refusing medications/ treatment while inpatient. He has been started on IV diuresis. [facility] May 2024 with no significant CAD. [...] Lying Lying Pulse: 83 102 Resp: 16 Temp: 37 C (98.6 F) 36.3 [...] ED and Inpatient algorithms. Recent Labs 08/13/24 0924 08/14/24 1036 08/15/24 [...] Villalobos MD - 08/14/2024 3:14 PM EST [facility] Cardiology /Electrophysiology Progress Note HPI / Interval History: Carlo Medina is a 44 year old male with PMH of HFrEF 2/2 NICM ([facility] no CAD 05/2024), HTN, HLD CKD III, DVTs on OAC), and poor health literacy/ poor medication/follow up compliance who presented to [facility] on 08/09/24 with complaints of chest pain, [...] Bumex drip. Refuses right heart cath and [place] guided therapyif needed. - Continue to hold [...] 39* CREATININE 2.23* 2.24* 2.17* Recent Labs 08/12/2413308/13/2492308/14/24 1036 WBC 8.0 7.4 7.3 HGB 14.0 [...] pressure is elevated (~15 mmHg). Signed by: Anarickey Singletary on 08/11/2024 12:41 PM Other reports [...] Carlisle PA-C - 08/14/2024 1:39 PM EST [facility] Progress Note Subjective/ 44 y.o. year [...] any questions or concerns. DAVID Bajwa, RAGHAVC [facility] Office This note is not finalized until authorized by Attending physician. Cosigned by Saul Briones MD at 08/14/2024 4:02 PM EST Associated attestation - Saul Briones MD - 08/14/2024 4:02 PM EST Notes reviewed and plan discussed with the PA. Agree with above note except Any variance is noted below. Saul Briones MD [facility] [phone] * Edgar Celaya MD - 08/14/2024 8:38 [...] adamantly refusing swan. Nephrology consulted/following. Notified by [facility] that patient's insurance is out of network, so called [facility] transfer line and discussed with hospitalist; patient accepted for transferto [facility] pending bed availability. Interval History: Overnight, patient [...] HFrEF (heart failure with reduced ejection fraction) ([facility]) 06/13/2024 Acute kidney injury superimposed on CKD ([facility]) ([facility]) 07/03/2024 At risk for obstructive sleep apnea 05/31/2024 o/p sleep study recommended during admission CHF (congestive heart failure) ([facility]) CKD (chronic kidney disease) H/O noncompliance with medical treatment, presenting hazards to health 06/19/2024 HFrEF (heart failure with reduced ejection fraction) ([facility]) 04/28/2024 History of left bundle branch block (LBBB) 06/19/2024 Hypercholesteremia Hypertension Left against medical advice 08/04/2024 Noncompliance 06/19/2024 NSTEMI (non-ST elevated myocardial infarction) ([facility]) 07/11/2024 Potential for deficient knowledge of congestive heart failure 08/05/2024 Pulmonary embolism ([facility]) Pulmonary vascular congestion 04/28/2024 Sinus tachycardia 06/19/2024 LABS: CBC: Recent Labs 08/12/244 08/13/24 09 WBC 8.0 7.4 RBC 4.18* 4.17* HGB 14.0 13.8 HCT 42.2 40.9 MCV 101.0* 98.1 RDW 13.2 13.2 PLT 263 246 BMP: Recent Labs 08/12/244 08/13/24 09 NA 136 136 K 4.3 3.7 CL 106 105 CO2 19* 20* BUN 42* 47* CREATININE 2.23* 2.24* GLUCOSE 118* 165* CALCIUM 8.2* 8.4 ANIONGAP 11 11 LIVER PROFILE: Recent Labs 08/12/244 08/13/24 09 AST 47* 38* ALT 86* 83* BILITOT [...] TCC following for dispo planning. Notified by [facility] that patient's insurance is out of network and need to call [facility] transfer line ([phone]) to see if we can get him transferred. Called [facility] transfer line and discussed with hospitalist. Patient accepted for transfer to [facility] pending bed availability which was noted could take awhile (accepting physician: Dr. Govea?). - am labs, replace lytes prn - delirium precautions: increase activity, schedule melatonin at bedtime, and limit nighttime disturbances - DVT prophylaxis: encourage ambulation and already anticoagulated Advance Directive: Full Code Anticipated Discharge - Date - TBD - Location - TBD - patient accepted for transfer to [facility] pending bed availability as patient out of network with insurance here - Pending the following - clinical course, urban design consultant recs Extended Emergency Contact Information Primary Emergency Contact: KurtKaitlin Mobile Relation: Significant Other Secondary Emergency Contact: Indira Medina Mobile Relation: Sister Edgar Celaya MD Division of Hospitalist Medicine [facility] * Jennifer Cohen APRN - OFFICE CORRESPONDENT - 08/13/2024 12:40 PM EST CARE PROGRESSION [...] No primary care provider on file. Room#: [facility] A BRIEF HOSPITAL COURSE: Carlo Medina is [...] adamantly refusing swan. Nephrology consulted/following. Notified by [facility] that patient's insurance is out of network, [facility] with [facility]ist; [facility]. Interval History: No [...] HFrEF (heart failure with reduced ejection fraction) ([facility]) 06/13/2024 Acute kidney injury superimposed on CKD ([facility]) ([facility]) 07/03/2024 At risk for obstructive sleep apnea 05/31/2024 o/p sleep study recommended during admission CHF (congestive heart failure) ([facility]) CKD (chronic kidney disease) H/O noncompliance with medical treatment, presenting hazards to health 06/19/2024 HFrEF (heart failure with reduced ejection fraction) ([facility]) 04/28/2024 History of left bundle branch block (LBBB) 06/19/2024 Hypercholesteremia Hypertension Left against medical advice 08/04/2024 Noncompliance 06/19/2024 NSTEMI (non-ST elevated myocardial infarction) ([facility]) 07/11/2024 Potential for deficient knowledge of congestive heart failure 08/05/2024 Pulmonary embolism ([facility]) Pulmonary vascular congestion 04/28/2024 Sinus tachycardia 06/19/2024 LABS: CBC: Recent Labs 08/11/2421608/12/2413308/13/24923 WBC 8.2 8.0 7.4 RBC 4.20* 4.18* 4.17* HGB 15.0 13.9 14.0 13.8 HCT 42.0 42.2 40.9 MCV 100.0* 101.0* 98.1 RDW 13.0 13.2 13.2 PLT 243 263 246 BMP: Recent Labs 08/11/2421608/12/2413308/13/24923 NA 130* 136 136 K 4.0 4.3 3.7 CL 102 106 105 CO2 18* 19* 20* BUN 39* 42* 47* CREATININE 1.80* 2.23* 2.24* GLUCOSE 94 118* 165* CALCIUM 8.4 8.2* 8.4 ANIONGAP 10 11 11 LIVER PROFILE: Recent Labs 08/11/24 0217 08/12/24 0134 08/13/24 0924 AST 47* 47* 38* ALT 86* 86* [...] out of network and need to call [facility] transfer line ([phone]) to see if we can get him transferred. Called [facility] transfer line and discussed with hospitalist. Patient accepted for transferto [facility] pending bed availability which was noted could take awhile (accepting physician: Dr. Govea?). - am labs, replace lytes prn - delirium precautions: increase activity, schedule melatonin at bedtime, and limit nighttime disturbances - DVT prophylaxis: encourage ambulation and already anticoagulated Advance Directive: Full Code Anticipated Discharge - Date - TBD - Location - TBD - patient accepted for transfer to [facility] pending bed availability as patient out of network with insurance here - Pending the following - clinical course, urban design consultant recs Extended Emergency Contact Information Primary Emergency Contact: Kaitlin Hicks Mobile Relation: Significant Other Secondary Emergency Contact: Indira Medina Mobile Relation: Sister Edgar Celaya MD Division of Hospitalist Medicine [facility] * Selena Carlisle PA-C - 08/13/2024 9:39 AM EST [facility] Progress Note Subjective/ 44 [...] ROS Otherwise negative No interval changes to [facility]. All interval notes/labs/imaging reviewed. Objective/ Vitals: 08/12/24 2258 08/13/24 0320 08/13/24 0619 [...] d/w patient, RN on floor and cardiology OFFICE CORRESPONDENT We will follow. Please do not hesitate to call with any questions or concerns. DAVID Bajwa, BRONSON [facility] Office This note is [...] of further deterioration. Declined. Saul Briones MD [facility] [phone] * Sepidehconchita Townsend, THOMAS - OFFICE CORRESPONDENT - 08/13/2024 7:22 AM EST [facility] [place] [facility] [place]rophysiology Progress Note HPI / Interval History: Carlo Medina is a 44 year old male with PMH of HFrEF 2/2 NICM ([facility] no CAD 05/2024), HTN, HLD CKD III, DVTs on OAC), and poor health literacy/ poor medication/follow up compliance who presented to [facility] on 08/09/24 with complaints of chest pain, [...] out of network and need to call [facility] transfer line ([phone]) to see if we can get him transferred. Called [facility] transfer line and discussed with hospitalist. Patient accepted for transfer to [facility] pending bed availability which was noted could [...] HFrEF (heart failure with reduced ejection fraction) ([facility]) 06/13/2024 Acute kidney injury superimposed on CKD ([facility]) ([facility]) 07/03/2024 At risk for obstructive sleep apnea 05/31/2024 o/p sleep study recommended during admission CHF (congestive heart failure) ([facility]) CKD (chronic kidney disease) H/O noncompliance with medical treatment, presenting hazards to health 06/19/2024 HFrEF (heart failure with reduced ejection fraction) ([facility]) 04/28/2024 History of left bundle branch block (LBBB) 06/19/2024 Hypercholesteremia Hypertension Left against medical advice 08/04/2024 Noncompliance 06/19/2024 NSTEMI (non-ST elevated myocardial infarction) ([facility]) 07/11/2024 Potential for deficient knowledge of congestive heart failure 08/05/2024 Pulmonary embolism ([facility]) Pulmonary vascular congestion 04/28/2024 Sinus tachycardia 06/19/2024 LABS: CBC: Recent Labs 08/09/24215408/11/2421608/12/24133 WBC 8.8 8.2 8.0 RBC 4.21* 4.20* [...] 8 10 11 LIVER PROFILE: Recent Labs 08/09/24 2155 08/11/2421608/12/24 0134 AST 52* 47* 47* ALT 95* 86* [...] Held Coreg. Recs noted. Briefly discussed with concrete finishing machine operator and HF attending today. - BNP 16,371 (08/09) -> 10,757 (08/12) - Strict I/O's, daily weight - Nephrology following. Recs noted. - Continue chronic medications as able. - [facility] following for dispo planning. Discussed with [facility] today. Notified by [facility] that patient's insurance is out of network and need to call [facility] transfer line ([phone]) to see if we can get him transferred. Called [facility] transfer line and discussed with hospitalist. Patient accepted for transferto [facility] pending bed availability which was noted could take awhile (accepting physician: Dr. Govea?). - am labs, replace lytes prn - delirium precautions: increase activity, schedule melatonin at bedtime, and limit nighttime disturbances - DVT prophylaxis: encourage ambulation and already anticoagulated Advance Directive: Full Code Anticipated Discharge - Date - TBD - Location - TBD - patient accepted for transfer to [facility] pending bed availability as patient out of network with insurance here - Pending the following - clinical course, urban design consultant recs Extended Emergency Contact Information Primary Emergency Contact: Kaitlin Hicks Mobile Relation: Significant Other Secondary Emergency Contact: Indira Medina Mobile Relation: Sister Edgar Celaya MD Division of Hospitalist Medicine [employer] * Ofelia Villalobos MD - 08/12/2024 9:33 AM EST [facility] [place] [facility] [place]Electrophysiology Progress Note HPI / Interval History: Carlo Medina is a 44 y.o. male with a PMHx of HFrEF, CKD, HTN, HLD, LBBB, NSTEMI and pulmonary vascular congestion who got admitted from [facility] ED for further evaluation and management of chest pain,ADHF and SCHUYLER on CKD. In the ED, patient was afebrile, tachycardic between 110-120's, normal respirations and satting well on 2L NC. CMP showed Scr at 1.94, CBC unremarkable, [place]rop[place] [address].EKG showed sinus tachycardia with left atrial enlargement. Chest x-ray showed enlarged cardiac silhouette similar to previous exam. He was given morphine 4mg x2 and Zofran 4mg x2. On assessment, patient said he has slept well last night and is feeling okay. He says the swelling in his legs have gotten better but his lower abdomen is dam tender. He had an episode of vomiting [...] for ED and Inpatient algorithms. Recent Labs 08/09/24215408/11/2421608/12/24133 NA 139 130* 136 K 3.8 4.0 4.3 CL 104 102 106 CO2 27 18* 19* BUN 35* 39* 42* CREATININE 1.94* 1.80* 2.23* Recent Labs 08/09/24215408/11/2421608/12/24133 WBC 8.8 8.2 8.0 HGB 14.2 15.0 [...] Carlisle PA-C - 08/12/2024 7:34 AM EST [facility] Progress Note Subjective/ 44 y.o. year old male who we are seeing in consultation for CKD stage 3b. Interval History Laying in bed, not feeling well C/o abdominal discomfort and nausea Continues to endorse CARRERA Remains on RA UOP suboptimal ROS Otherwise negative No interval changes to [facility]. All interval notes/labs/imaging reviewed. Objective/ Vitals: 08/11/24 [...] polyethylene glycol (PEG) 3350 Data/ Recent Labs 08/09/24 2155 08/11/24 0217 08/12/24 0134 WBC 8.8 8.2 8.0 HGB 14.2 15.0 13.9 14.0 HCT 42.8 42.0 42.2 MCV 101.7* 100.0* 101.0* PLT 245 243 263 Recent Labs 08/09/24 2155 08/11/24 0217 08/12/24 0134 NA 139 130* 136 K 3.8 [...] any questions or concerns. DAVID Bajwa, RAGHAVC [facility] Office This note is [...] recommended course of action. Saul Briones MD [facility] [phone] * Duc Nuñez OT - 08/11/2024 2:58 PM EST Images from the original note were not included. OCCUPATIONAL THERAPY [facility] Name/MRN: Carlo Medina ([id number]) Date: 08/11/2024 OT eval and treatment received. [...] be monitored and followed by the diet licensed chemical spray technician. PAO Hairston * Lilia Brice, PT - 08/11/2024 1:13 PM EST Images from the original note were not included. PHYSICAL THERAPY [facility] Name/MRN: Carlo Medina ([id number]) Date: 08/11/2024 PT orders received. Chart reviewed. Spoke with patient. Patient states he is mobilizing at baseline/independent level and does not need or want PT at this time. Will sign off. Lilia Brice PT * Edgar Celaya MD - 08/11/2024 10:14 AM EST Hospitalist Progress Note 08/11/2024 Subjective: Admit Date: 08/09/2024 PCP: No primary care provider on file. [facility]#: [facility] A BRIEF HOSPITAL COURSE: Carlo Medina is [...] HFrEF (heart failure with reduced ejection fraction) ([facility]) 06/13/2024 Acute kidney injury superimposed on CKD (H[facility]) ([facility]) 07/03/2024 At risk for obstructive sleep apnea 05/31/2024 o/p sleep study recommended during admission CHF (congestive heart failure) ([facility]) CKD (chronic kidney disease) H/O noncompliance with medical treatment, presenting hazards to health 06/19/2024 HFrEF (heart failure with reduced ejection fraction) ([facility]) 04/28/2024 History of left bundle branch block (LBBB) 06/19/2024 Hypercholesteremia Hypertension Left against medical advice 08/04/2024 Noncompliance 06/19/2024 NSTEMI (non-ST elevated myocardial infarction) ([facility]) 07/11/2024 Potential for deficient knowledge of congestive heart failure 08/05/2024 Pulmonary embolism ([facility]) Pulmonary vascular congestion 04/28/2024 Sinus tachycardia 06/19/2024 [...] - Pending the following - clinical course, urban design consultant recs Extended Emergency Contact Information Primary Emergency Contact: Kaitlin Hicks Mobile Relation: Significant Other Secondary Emergency Contact: Indira Medina Mobile Relation: Sister Edgar Celaya MD Division of Hospitalist Medicine [facility] documented in this [facility] Consult note* Sheela Adan RD - [...] of care. Sheela Adan RD Contact #: *[phone] * Ofelia Villalobos MD - 08/11/2024 11:31 AM EST [facility] [place] [facility] [place] /Electrophysiology Consult Note Reason for Consult/Chief Complaint: Evaluation of HfrEF Referring provider: Dr. 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 male with a PMHx of HFrEF, CKD, HTN, HLD, LBBB, NSTEMI and pulmonary vascular congestion who got admitted from [facility] ED for further evaluation and management of chest pain,ADHF and SCHUYLER on CKD. In the ED, patient was afebrile, tachycardic between 110-120's, normal respirations and satting well on 2L NC. CMP showed Scr at 1.94, CBC unremarkable, [place] [address].EKG showed sinus tachycardia with left atrial enlargement. Chest x-ray showed enlarged cardiac silhouette similar to previous exam. He was given morphine 4mg x2 and Zofran 4mg x2. On assessment, patient said he has slept well last night and is feeling okay. He says the swelling in his legs have gotten better but his lower abdomen is dam tender. He had an episode of vomiting [...] Recent Labs 08/09/242154 BNP 16,371* Recent Labs 08/11/24216 INR 1.4* Results from last 7 days Lab Units 08/11/2421608/09/24215408/05/24 0306 AST U/L 47* 52* 50* ALT [...] AM ESTAssociated Order(s): IP CONSULT TO NEPHROLOGY [facility] Consultation Note Reason for consultation: SCHUYLER on CKD Chief Complaint: Chest Pain,. ADHF & SCHUYLER on CKD History of Presenting Illness Patient is a 44 y.o. male with PMHx noted below who presented to [facility] ED on 08/09/2024 with chief complaint listed above. In ED vitals remarkable for tachycardia (HR 110-120s). Labs significant for Scr1.94, BNP 16,371, CBC unremarkable. Patient admitted for further evaluation and management. Received IV lasix 40 mg x 1 this morning. Nephrology is consulted for evaluation and management of SCHUYLER on CKD. Patient known to our group from previous admissions. Scr is currently 1.80. As high as 1.94 on admission. Patient's baseline creatinine appears to be 1.7. Patient has a hx of chronic kidney disease stage 3b, etiology 2/2 HTN. Denies ever being seen by escrow officer outpatient. Home medications notable for aldactone 25 mg/day, NaHCo3 tablets 1,300 mg BID, potassium [id number] mEq/day, losartan 50 mg/day, bumex 1 mg [...] HFrEF (heart failure with reduced ejection fraction) ([facility]) 06/13/2024 Acute kidney injury superimposed on CKD ([facility]) ([facility]) 07/03/2024 At risk for obstructive sleep apnea 05/31/2024 o/p sleep study recommended during admission CHF (congestive heart failure) ([facility]) CKD (chronic kidney disease) H/O noncompliance with medical treatment, presenting hazards to health 06/19/2024 HFrEF (heart failure with reduced ejection fraction) ([facility]) 04/28/2024 History of left bundle branch block (LBBB) 06/19/2024 Hypercholesteremia Hypertension Left against medical advice 08/04/2024 Noncompliance 06/19/2024 NSTEMI (non-ST elevated myocardial infarction) ([facility]) 07/11/2024 Potential for deficient knowledge of congestive heart failure 08/05/2024 Pulmonary embolism ([facility]) Pulmonary vascular congestion 04/28/2024 Sinus tachycardia 06/19/2024 Past Surgical History: Procedure Laterality Date CARDIAC CATHETERIZATION N/A 06/17/2024 Performed by Akilah Diaz MD at [facility] Cardiac Supervisor Dry Cleaning Review of Systems All 12 systems reviewed [...] 0 min Stress: Stress Concern Present (07/12/2024) [place] [facility] [employer] [facility] - Occupational Stress Questionnaire Feeling of Stress : To some extent Social Connections: Moderately Integrated (07/12/2024) Social Connection and Isolation Panel [NHANES] Frequency of Communication with Friends and Family: Twice a week Frequency of Social Gatherings with Friends and Family: Once a week Attends Caodaism Services: 1 to 4 times per year [...] and judgement, good recall Data Recent Labs 02/10215408/11/24216 WBC 8.8 8.2 HGB 14.2 15.0 13.9 [...] Carlo Medina DATE: August 11, 2024 Office [facility] [phone] Note not finalized until authorized by Attending [...] 12.5 mg twice daily. Saul Briones MD [facility] [phone] documented in this [facility]2025 Telephone encounter Note* Telephone Encounter - Christopher Tai MD - 08/12/2024 3:23 PM EST Images from the original note were not included. PIC Triage Note 08/12/2024 [facility] patient being transferred from: [facility]: Dr Godinez Reason for admission: Heart Failure Reason For Transfer: Out of network, out of insurance History of biventricular HF, EF 20% last year. 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 Other workup pending. Unknown substance/drug history, tox screens negative this admission. Presented 08/09 for chest pain/SOB to [facility]. Admission for acute on chronic CF Repeat [...] have today's weight either Labs Today: BNP 59755 [place] , [place] [address] Baseline around 17-20K Cr 2.23 Baseline 1.68 [...] Christopher Tai MD Internal Medicine-Pediatrics PGY-4 Pager: [phone] [id number] Miscellaneous Notes* Telephone Encounter - Christopher Tai MD - 08/12/2024 3:23 PM EST Images from the original note were not included. PIC Triage Note 08/12/2024 [facility] patient being transferred from: [facility]: Dr Godinez Reason for admission: Heart Failure Reason For Transfer: Out of network, out of insurance History of biventricular HF, EF 20% last year. 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 Other workup pending. Unknown substance/drug history, tox screens negative this admission. Presented 08/09 for chest pain/SOB to [facility]. Admission for acute on chronic CF Repeat [...] have today's weight either Labs Today: BNP 88647 [place] , [place] [address] Baseline around 17-20K Cr 2.23 Baseline 1.68 [...] Christopher Tai MD Internal Medicine-Pediatrics PGY-4 Pager: [phone] documented in this [id number] Hospital Discharge instructions* Discharge Instructions* Dia Gaitan RN - 08/11/2024 10:39 AM EST My Heart Failure Action Plan Use the below chart as a guide for daily symptom monitoring after you obtain your morning weight. My Bun Panner: Dr[facility] [phone] My Diagnosis: Heart failure with reduced ejection fraction My Ejection Fraction: ~20% NORMAL 50-65% My Exercise Goal: as tolerated My Weight Goal: Standing weight day of hospital discharge Weigh yourself daily using the same scale. If you gain more than 3 pounds in 24 hours or 5 pounds in a week Call your Bun Panner!! My Diet Goal: General diet recommendations for [...] your heart. The Cardiac Rehab team at [facility] consists of highly skilled exercise physiologists, nurses, [...] We have easily accessible facilities on both [facility] and [facility] with free street level parking. There is a mandatory 6 week wait period following a hospitalization to ensure you are stable enough to participate. Cardiac Rehab staff will contact you about 2 weeks prior to the identified start date to assess payment and schedule your first visit. If needed, [facility] Financial Assistanceis available! If you have other questions or concerns, be sure to ask your provider. We look forward to seeing you! Our locations: [facility] [phone] [id number] (Ground floor past [address]) [place] [phone] [place] [address] [id number] (Ground floor) * Discharge Instr - ROBERT* Rima Reyes RN - 08/19/2024 1:49 PM EST Images [...] 06/17/2024 Performed by Akilah Diaz MD at [facility] Cardiac Supervisor Dry Cleaning Immunization History: There is no immunization history [...] 12.8 oz) Mental Status: {ROBERT Patient Mental Status:58339} IV Access: {ROBERT IV Access:34139} Nursing Mobility/ADLs: Walking {EMELY ADL:::Independent} Transfer {EMELY ADL:::Independent} Bathing {EMELY ADL:::Independent} Dressing {EMEYL ADL:::Independent} Toileting {EMELY ADL:::Independent} Feeding {EMELY ADL:::Independent} Salt Plant Operator {EMELY ADL:::Independent} Med Delivery {yes/no:00783} Wound Care Documentation and Therapy: Elimination: Continence: Bowel: {yes/no:82230} Bladder: {yes/no:21754} Urinary Catheter: {ROBERT Urinary Catheter:06459} Colostomy/Ileostomy/Ileal Conduit: {YES / NO:} Date of Last BM: Intake/Output Summary (Last 24 hours) at 08/19/2024 1349 Last data filed at 08/19/2024 0800 Gross per 24 hour Intake 650 ml Output 3350 ml Net -2700 ml I/O last 3 completed shifts: In: 1130 (16.2 mL/kg) [P.O.:1130] Out: 7450 (106.8 mL/kg) [Urine:7450 (3 mL/kg/hr)] Weight: 69.8 kg Safety Concerns: {ROBERT Safety Concerns:14886} Impairments/Disabilities: {ROBERT Impairments/Disabilities:07156} Nutrition Therapy: Current Nutrition Therapy: {ROBERT Diet List:41387} Routes of Feeding: {routes of feedin} Liquids: {liquid consistency:46983} Daily Fluid Restriction: {daily fluid restriction:38978} Last Modified Barium Swallow with Video (Video Swallowing Test): {done not done:88083} Treatments at the Time of Hospital Discharge: Respiratory Treatments: Oxygen Therapy: {Therapy; copd oxygen:96208} Ventilator: {ROBERT Ventilator:81502} Rehab Therapies: {GEN THERAPY DISCIPLINE SCAL:7966001} Weight Bearing Status/Restrictions: {POD WEIGHT BEARIN} Other Medical Equipment (for information only, NOT a DME order): {Assistive Devices DME:82790} Other Treatments: Patient's personal belongings (please select all that are sent with patient): {ROBERT Patient Belongings:40245} RN SIGNATURE: {E-signature:15872} CASE MANAGEMENT/SOCIAL WORK SECTION Inpatient Status Date: Discharging to Facility/ Agency Name: Address: Phone: Fax: Dialysis Facility (if applicable) Name: Address: Dialysis Schedule: Phone: Fax: Quality Control Engineer/Chargeback Specialist signature: {E-signature:69532} PHYSICIAN SECTION Name: Carlo Medina Prognosis: {Rehab Prognosis:40676} Condition at Discharge: {Patient Condition:97296} Rehab Potential (if transferring to Rehab): {Rehab Prognosis:27612} Recommended Labs or Other Treatments After Discharge: The individual is being admitted to a nursing facility directly from an [facility] or a unit of a [facility] that is not operated by or licensed by [facility] under section 5119.14 or 5160-3-15.1 5 The individual requires the level of services provided by a nursing facility for the condition for which he or she was treated in the hospital and, Physician Certification: I certify the above information and transfer of Carlo Medina is necessary for the continuing treatment of the diagnosis listed and that he requires {ROBERT Level of Care:92152} for {greater less than:31830} 30 days. Update Admission H&P: {ROBERT Changes in H&P:93560} PHYSICIAN SIGNATURE: {E-signature:77092} documented in this [facility]02[facility]11-2025 [facility] 08-10-2024 History and physical note* Dasha Lyn MD - 08/10/2024 8:53 PM EST Attending History and Physical Admit Date: 08/09/2024 PCP: No primary care provider on file. CHIEF COMPLAINT: Chest Pain,. ADHF & SCHUYLER on CKD History Obtained From: The patient & EHR HISTORY OF PRESENT ILLNESS: Carlo is a 44 y.o. male with with PMH below who got admitted from the [facility] ED to the hospital forfurther evaluation and management of Chest Pain, ADHF & SCHUYLER on CKD. Upon arrival to the ED, the pt was tachycardiac 110-120s, afebrile, satting well on 2L NC. The initial workup at the ED revealed: - sCr: 1.94 - CBC wnl - Pro-BNP: 06207 - Trop wnl - EKG showed sinus [...] HFrEF (heart failure with reduced ejection fraction) ([facility]) 06/13/2024 Acute kidney injury superimposed on CKD ([facility]) ([facility]) 07/03/2024 At risk for obstructive sleep apnea 05/31/2024 o/p sleep study recommended during admission CHF (congestive heart failure) ([facility]) CKD (chronic kidney disease) H/O noncompliance with medical treatment, presenting hazards to health 06/19/2024 HFrEF (heart failure with reduced ejection fraction) ([facility] [facility] 04/28/2024 History of left bundle branch block (LBBB) 06/19/2024 Hypercholesteremia Hypertension Left against medical advice 08/04/2024 Noncompliance 06/19/2024 NSTEMI (non-ST elevated myocardial infarction) ([facility]) 07/11/2024 Potential for deficient knowledge of congestive heart failure 08/05/2024 Pulmonary embolism ([facility]) Pulmonary vascular congestion 04/28/2024 Sinus tachycardia 06/19/2024 Past Surgical History: Past Surgical History: Procedure Laterality Date CARDIAC CATHETERIZATION N/A 06/17/2024 Performed by Akilah Diaz MD at [facility] Cardiac Supervisor Dry Cleaning Social History: Social History Socioeconomic History Marital [...] 0 min Stress: Stress Concern Present (07/12/2024) [place] [employer] - Occupational Stress Questionnaire Feeling of Stress : To some extent Social Connections: Moderately Integrated (07/12/2024) Social Connection and Isolation Panel [NHANES] Frequency of Communication with Friends and Family: Twice a week Frequency of Social Gatherings with Friends and Family: Once a week Attends Caodaism Services: 1 to 4 times per year [...] Thought content normal. DATA: CBC: Recent Labs 08/09/242154 WBC 8.8 RBC 4.21* HGB 14.2 HCT 42.8 MCV 101.7* RDW 13.2 PLT 245 BMP: Recent Labs 08/09/242154 NA 139 K 3.8 CL 104 CO2 27 BUN 35* CREATININE 1.94* GLUCOSE 139* CALCIUM 8.8 ANIONGAP 8 LIVER PROFILE: Recent Labs 08/09/242154 AST 52* ALT 95* BILITOT 2.2* ALKPHOS [...] Dasha Lyn MD Division of Hospitalist Medicine [facility] documented in this [facility]02-11-[facility]25 Emergency department Note* Deena Piper RN - 08/10/2024 7:41 PM EST Report called to 5W * Marycarmen Dias RN - 08/10/2024 6:33 PM EST Pt ambulatory to bathroom with steady gait. * Marycarmen Dias RN - 08/10/2024 6:11 PM EST Pt reuestning meds for pain and nausea * Marycarmen Dias RN - 08/10/2024 3:58 PM EST Pt expressing frustration of continued wait time. Ice chips are provided per request * Marycarmen Dias RN - 08/10/2024 2:43 PM EST [facility] contacted for update. Pt aware of continued wait time for bed assignment. No other requests at present time. * Marycarmen Dias RN - 08/10/2024 11:39 AM EST Pt declines four eyes skin check for admission * Marycarmen Dias RN - 08/10/2024 11:30 AM EST PO fluids and light meal provided. Pt updated and aware of continued wait time for bed assignment. ERLEY Dias RN - 08/10/2024 9:45 AM EST Pt has oxygen removed and sats have been maintained at 97-100% on room air. Will continue to monitor. * Deena Piper RN - 08/10/2024 1:40 AM EST This nurse returned to room, No urine in urinal or bedside commode, no bm in bedside commode noted.A wipe was in bedside commode. Commode emptied. Patients cardiac monitoring and bp cuff that patient removed was replaced. * Deena Piper RN - 08/10/2024 1:10 AM EST Patient turned clinical admissions manager light. Patient requesting to use restroom. The [...] 1980 Date of evaluation: 08/09/2024 ED Provider: Joel Fernandes MD CHIEF COMPLAINT Chief Complaint Patient [...] HFrEF (heart failure with reduced ejection fraction) ([facility]) 06/13/2024 Acute kidney injury superimposed on CKD ([facility]) ([facility]) 07/03/2024 At risk for obstructive sleep apnea 05/31/2024 o/p sleep study recommended during admission CHF (congestive heart failure) ([facility]) CKD (chronic kidney disease) H/O noncompliance with medical treatment, presenting hazards to health 06/19/2024 HFrEF (heart failure with reduced ejection fraction) ([facility]) 04/28/2024 History of left bundle branch block (LBBB) 06/19/2024 Hypercholesteremia Hypertension Left against medical advice 08/04/2024 Noncompliance 06/19/2024 NSTEMI (non-ST elevated myocardial infarction) ([facility]) 07/11/2024 Potential for deficient knowledge of congestive heart failure 08/05/2024 Pulmonary embolism ([facility]) Pulmonary vascular congestion 04/28/2024 Sinus tachycardia 06/19/2024 SURGICAL HISTORY Past Surgical History: Procedure Laterality Date CARDIAC CATHETERIZATION N/A 06/17/2024 Performed by Akilah Diaz MD at [facility] Cardiac Supervisor Dry Cleaning CURRENT MEDICATIONS Previous Medications APIXABAN (ELIQUIS) 5 [...] 0 min Stress: Stress Concern Present (07/12/2024) [place] [employer] - Occupational Stress Questionnaire Feeling of Stress : To some extent Social Connections: Moderately Integrated (07/12/2024) Social Connection and Isolation Panel [NHANES] Frequency of Communication with Friends and Family: Twice a week Frequency of Social Gatherings with Friends and Family: Once a week Attends Caodaism Services: 1 to 4 times per year [...] HF chronicity, unspecified heart failure type (HCC) Medications morphine injection 2 mg (2 mg [...] admission, will be awaiting a bed at [facility]. I informed patient I would re-order his home meds but he declined and stated he would rather have them at [facility]. CRITICAL CARE TIME CONSULTS: None PROCEDURES: Unless otherwise noted below, none Procedures Patients symptoms are consistent with sepsis, severe sepsis, or septic shock (If yes use .sepsiscoremeasure): FINAL IMPRESSION 1. Acute kidney injury superimposed on CKD (HCC) (HCC) 2. Congestive heart failure, unspecified HF chronicity, unspecified heart failure type (HCC) DISPOSITION Admit 08/09/2024 11:43:34 PM PATIENT REFERRED [...] Emergency Medicine Provider Joel Fernandes MD 08/09/24 3001 Joel Fernandes MD 08/10/24 [id number] * Deena Piper RN - 08/09/2024 9:09 [...] ultrasound IV if needed. documented in this [facility]02-10[facility]2025 NoteChart reviewed. 2nd attempt to contact patient for transitions post-discharge outreach. No answer, left VM to please return my call. Will follow up again. [facility]02-06-2025 Telephone encounter Note* Telephone Encounter - Ally Machado RN - 08/05/2024 1:33 PM EST Lengthy conversation with the pt. He was unsure if he plans to follow with Dr Astudillo or any doctors in [place] as he was really disappointed in the [...] them to call back with any questions. [facility] [id number] Miscellaneous Notes* Telephone Encounter - Ally Machado RN - 08/05/2024 1:33 PM EST Lengthy conversation with the pt. He was unsure if he plans to follow with Dr Astudillo or any doctors in [place] as he was really disappointed in the [...] will review labs * Telephone Encounter - Cristy Lopez RN - [...] office. Patient in NAD. documented in this [facility]02-06-2025 Telephone encounter Note* Telephone Encounter - Sergei Astudillo MD - 08/05/2024 1:10 PM EST Labs reviewed -- I still recommedn the med changes from yesterday (increase Losartan, Increase [place]). He may decrease potassium supplement to 20 mEq. He denied SOB yesterday -- however, he did note that the lasix didn't make him urinate much about baselline. He can try Bumex 1 mg BID to REPLACE Lasix to see if this helps him urinate more and improve his SOB [facility] [id number] Telephone encounter Note* Telephone Encounter - Ally Machado RN - 08/05/2024 1:04 PM EST Pt presented to ER last evening, approx [address] Astudillo in office. Pt then left theER AMA, less than 20 minutes after arriving to the ER. Dr Astudillo will review labs [facility] [id number] Telephone encounter Note* Telephone Encounter - Cristy [...] will call that office. Patient in NAD. [facility] [id number] Emergency department Note* Kelly Spangler RN - 08/05/2024 9:57 AM EST Pt came up to this RN stating he wanted to leave and was done waiting. Pt refused to speak with BASE WAD OPERATOR ADJUSTER.PIV removed. Pt ambulated out of IRP with steady gait. Ashtyn JAMES made aware pt left [facility] [id number] Emergency department Note* Kelly Spangler RN - 08/05/2024 9:57 AM EST Pt came up to this RN stating he wanted to leave and was done waiting. Pt refused to speak with BASE WAD OPERATOR ADJUSTER.PIV removed. Pt ambulated out of IRP with steady gait. Ashtyn JAMES made aware pt left * THOMAS Pearce CNP - 08/04/2024 9:38 PM [...] HFrEF (heart failure with reduced ejection fraction) ([facility]) 06/13/2024 Acute kidney injury superimposed on CKD ([facility]) ([facility]) 07/03/2024 At risk for obstructive sleep apnea 05/31/2024 o/p sleep study recommended during admission CHF (congestive heart failure) ([facility]) CKD (chronic kidney disease) HFrEF (heart failure with reduced ejection fraction) ([facility]) 04/28/2024 History of left bundle branch block (LBBB) 06/19/2024 Hypercholesteremia Hypertension Noncompliance 06/19/2024 NSTEMI (non-ST elevated myocardial infarction) (HCC) 07/11/2024 Pulmonary embolism (HCC) Pulmonary vascular congestion 04/28/2024 Sinus tachycardia 06/19/2024 SURGICAL HISTORY Past Surgical History: Procedure Laterality Date CARDIAC CATHETERIZATION N/A 06/17/2024 Performed by Akilah Diaz MD at [facility] Cardiac Supervisor Dry Cleaning CURRENT MEDICATIONS Previous Medications APIXABAN (ELIQUIS) 5 [...] 0 min Stress: Stress Concern Present (07/12/2024) [place] [employer] - Occupational Stress Questionnaire Feeling of Stress : To some extent Social Connections: Moderately Integrated (07/12/2024) Social Connection and Isolation Panel [NHANES] Frequency of Communication with Friends and Family: Twice a week Frequency of Social Gatherings with Friends and Family: Once a week Attends Caodaism Services: 1 to 4 times per year [...] 9:38 PM EST Emergency Department Encounter Location: [facility] EMERGENCY DEPT Patient: Carlo Medina : 1980 [...] 356 ms QTC Interval 477 ms P Cylinder 74 degrees QRS Cylinder -22 degrees T Wave Cylinder 154 degrees DE Interval 157 ms CBC auto differential Collection [...] 367 ms QTC Interval 499 ms P Cylinder 57 degrees QRS Cylinder -49 degrees T Wave Cylinder 114 degrees DE Interval 140 ms Troponin, High Sensitivity, Serial, [...] display I THOMAS Oconnell CNP am the psychological tests sales agent of record. Final Impression 1. SCHUYLER (acute [...] Prasad CNP 08/05/24 1015 documented [facility]02[facility] Physician Emergency department Note* THOMAS Pearce [...] HFrEF (heart failure with reduced ejection fraction) ([facility]) 06/13/2024 Acute kidney injury superimposed on CKD ([facility]) ([facility]) 07/03/2024 At risk for obstructive sleep apnea 05/31/2024 o/p sleep study recommended during admission CHF (congestive heart failure) ([facility]) CKD (chronic kidney disease) HFrEF (heart failure with reduced ejection fraction) ([facility]) 04/28/2024 History of left bundle branch block (LBBB) 06/19/2024 Hypercholesteremia Hypertension Noncompliance 06/19/2024 NSTEMI (non-ST elevated myocardial infarction) ([facility]) 07/11/2024 Pulmonary embolism ([facility]) Pulmonary vascular congestion 04/28/2024 Sinus tachycardia 06/19/2024 SURGICAL HISTORY Past Surgical History: Procedure Laterality Date CARDIAC CATHETERIZATION N/A 06/17/2024 Performed by Akilah Diaz MD at [facility] Cardiac Supervisor Dry Cleaning CURRENT MEDICATIONS Previous Medications APIXABAN (ELIQUIS) 5 [...] 0 min Stress: Stress Concern Present (07/12/2024) [place] [employer] - Occupational Stress Questionnaire Feeling of Stress : To some extent Social Connections: Moderately Integrated (07/12/2024) Social Connection and Isolation Panel [NHANES] Frequency of Communication with Friends and Family: Twice a week Frequency of Social Gatherings with Friends and Family: Once a week Attends Caodaism Services: 1 to 4 times per year [...] Medicine Provider THOMAS Pearce CNP 08/05/24 0703 [facility]02-05-2025 Physician Emergency department Note* THOMAS Prasad CNP - 08/04/2024 9:38 PM EST Emergency Department Encounter Location: [facility]PT Patient: Carlo Medina : 1980 [...] 356 ms QTC Interval 477 ms P Cylinder 74 degrees QRS Cylinder -22 degrees T Wave Cylinder 154 degrees DE Interval 157 ms CBC auto differential Collection [...] 367 ms QTC Interval 499 ms P Cylinder 57 degrees QRS Cylinder -49 degrees T Wave Cylinder 114 degrees DE Interval 140 ms Troponin, High Sensitivity, Serial, [...] - No data to display I Ashtyn Miles APRN - OFFICE CORRESPONDENT am the psychological tests sales agent of record. Final Impression 1. SCHUYLER (acute kidney injury) (HCC) 2. Shortness of breath 3. Chest pain, unspecified type DISPOSITION Eloped 08/05/2024 10:02:30 AM (Please note that portions of this note may have been completed with a voice recognition program. Efforts were made to edit the dictations but occasionally words are mis-transcribed.) Ashtyn Miles APRN - [employer] THOMAS Prasad CNP 08/05/24 1015 [employer] Work Phone: [phone] Evaluation + Plan note* Assessment & Plan Note - Sergei Astudillo MD - 08/04/2024 1:57 PM ESTAssociated Problem(s): HFrEF (heart failure with reduced ejection fraction) (HCC) NYHA Class 2 ACC/AHA Stage C HFrEF, with LVEF 20% (May 2024 echo) Etiology: NICM (Cath May 2024) Previous Therapies Beta-blockade: Carvedilol 25 mg BID ACEi/ARB/ARNI: Losartan 25 mg daily (did not tolerate Entresto) Aldosterone Antagonist: Jorge 12.5 mg daily + KCl Hydralazine/ISDN: none SGLT2i: none -- address at follow ups Diuretic: Lasix 40 mg BID ICD: TBD ENGINE DYNAMOMETER TESTER: TBD Cardiac Rehab: Offer when stable >6 weeks - Euvolemic on exam, BP better controlled -- taking Kcl - Advised and educated on principles of HFrEF management -- including titration of GDMT to max-tolerated doses - Will increase Losartan to 50 mg daily - Increase [place] to 25 mg daily -- follow up BMP in 1 week --> would like to stop potassium if in normal range/able [employer]02-05-2025 Miscellaneous Notes* Assessment & Plan Note - Sergei Astudillo MD - 08/04/2024 1:57 PM ESTAssociated Problem(s): HFrEF (heart failure with reduced ejection fraction) (HCC) NYHA Class 2 ACC/AHA Stage C HFrEF, with LVEF 20% (May 2024 echo) Etiology: NICM (Cath May 2024) Previous Therapies Beta-blockade: Carvedilol 25 mg BID ACEi/ARB/ARNI: Losartan 25 mg daily (did not tolerate Entresto) Aldosterone Antagonist: Jorge 12.5 mg daily + KCl Hydralazine/ISDN: none SGLT2i: none -- address at follow ups Diuretic: Lasix 40 mg BID ICD: TBD ENGINE DYNAMOMETER TESTER: TBD Cardiac Rehab: Offer when stable >6 [...] Unprovoked at that time [facility]02-05-2025 Evaluation + Plan note* Assessment & Plan Note - Sergei Astudillo MD - 08/04/2024 1:54 PM EST Associated Problem(s): Essential hypertension Better controlled today See #1 GDMT [facility] [id number] Evaluation + Plan note* Assessment & Plan Note - Sergei Astudillo MD - 08/04/2024 1:54 PM ESTAssociated Problem(s): Acute deep vein thrombosis (DVT) of lower extremity (HCC) BL DVT noted on US on 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 Unprovoked at that time [facility] [id number] History of Present illness Narrative* Sergei Astudillo MD - 08/04/2024 10:15 AM EST Images from the original note were not included. [facility] - [address] [address] Dept: [phone] Dept Loc: [phone] Visit type: Established patient Reason for Visit: New Patient (Referred by Dr Myles), Congestive Heart Failure (Echo pending 08/30/24), and Hospital Follow-up (6 admission since Jan 2024) Assessment and Plan 1. HFrEF (heart failure with reduced ejection fraction) ([facility]) Assessment & Plan: NYHA Class 2 ACC/AHA Stage C HFrEF, with LVEF 20% (May 2024 echo) Etiology: NICM (Cath May 2024) Previous Therapies Beta-blockade: Carvedilol 25 mg BID ACEi/ARB/ARNI: Losartan 25 mg daily (did not tolerate Entresto) Aldosterone Antagonist: Jorge 12.5 mg daily + KCl Hydralazine/ISDN: none SGLT2i: none -- address at follow ups Diuretic: Lasix 40 mg BID ICD: TBD ENGINE DYNAMOMETER TESTER: TBD Cardiac Rehab: Offer when stable >6 [...] tablet (25 mg) by mouth daily., Starting 08/04/2024, Until Benita 08/04/2025, Normal - losartan (Cozaar) 50 MG tablet; Take 1 tablet (50 mg) by mouth daily., Starting Fri08/04/2024, Until Benita 08/04/2025, Normal - Basic metabolic panel - Basic [...] HFrEF (heart failure with reduced ejection fraction) ([facility]) 06/13/2024 Acute kidney injury superimposed on CKD ([facility]) ([facility]) 07/03/2024 At risk for obstructive sleep apnea 05/31/2024 o/p sleep study recommended during admission CHF (congestive heart failure) ([facility]) CKD (chronic kidney disease) HFrEF (heart failure with reduced ejection fraction) ([facility]) 04/28/2024 History of left bundle branch block (LBBB) 06/19/2024 Hypercholesteremia Hypertension Noncompliance 06/19/2024 NSTEMI (non-ST elevated myocardial infarction) ([facility]) 07/11/2024 Pulmonary embolism ([facility]) Pulmonary vascular congestion 04/28/2024 Sinus tachycardia 06/19/2024 Social History Tobacco Use Smoking status: Never Passive exposure: Never Smokeless tobacco: Never Substance Use Topics Alcohol use: Never Past Surgical History: Procedure Laterality Date CARDIAC CATHETERIZATION N/A 06/17/2024 Performed by Akilah Diaz MD at [facility] Cardiac Supervisor Dry Cleaning Family History Problem Relation Name Age of [...] of Cardiovascular Disease, Division of Heart Failure [facility] [place] documented [facility]02-05-2025 Instructions* Patient Instructions* Sergei Astudillo MD [...] in ~ 2 weeks documented in this [facility]02-04-2025 Telephone encounter Note* Telephone Encounter - Kaitlin Gonzalez LPN - 08/03/2024 9:44 AM EST Unable to contact patient X2 [facility] [id number] Miscellaneous Notes* Telephone Encounter - Kaitlin Gonzalez LPN - 08/03/2024 9:44 AM EST Unable to contact patient X2 * Telephone Encounter - Kaitlin Gonzalez LPN - 08/02/2024 9:55 AM EST S: Patient admitted to: [facility] 07/23/24 B: Discharged on : 07/30/24 A: Hospital follow up call initiated to discuss any medication changes, follow up appointments and discharge instructions: Acute kidney injury R: No contact x 1 at : [phone] documented in this [facility]02-04-2025 Telephone encounter Note* Telephone Encounter - Dia Gaitan RN - 08/03/2024 9:22 AM EST casing crew: Pt's sister, Nanci, returned call. Said better to attempt to call pt in the afternoon as he usually sleeps in. Reminded Nanci of pt's upcoming appt tomorrow with Dr. Astudillo and requested she reinforce importance of attendance. 08/04: Pt came to [facility] appt. [facility] [id number] Miscellaneous Notes* Telephone Encounter - Dia Gaitan RN - 08/03/2024 9:22 AM EST casing crew: Pt's sister, Nanci, returned call. Said better to attempt to call pt in the afternoon as he usually sleeps in. Reminded Nanci of pt's upcoming appt tomorrow with Dr. Astudillo and requested she reinforce importance of attendance. 08/04: Pt came to [facility] appt. documented in this encounterSFisher-Titus Medical [id number] Telephone encounter Note* Telephone Encounter - Dia Gaitan RN - 08/02/2024 12:03 PM EST casing crew: Noted 2 unsuccessful attempts to contact pt today for follow up phone calls by and home care nurse manager. This RN attempted to contact pt [...] left. No further attempts to be made. [facility] [id number] Miscellaneous Notes* Telephone Encounter - Dia Gaitan RN - 08/02/2024 12:03 PM EST casing crew: Noted 2 unsuccessful attempts to contact pt today for follow up phone calls by and home care nurse manager. This RN attempted to contact pt [...] attempts to be made. documented [facility]02-03-2025 NoteChart reviewed. Attempted to contact patient for transitions post-discharge outreach. No answer, left VM to please return my call. Will follow up again. [facility]02-03-2025 Telephone encounter Note* Telephone Encounter - Kaitlin Gonzalez LPN - 08/02/2024 9:55 AM EST S: Patient admitted to: [facility] 07/23/24 B: Discharged on : 07/30/24 A: Hospital follow up call initiated to discuss any medication changes, follow up appointments and discharge instructions: Acute kidney injury R: No contact x 1 at : [phone] [facility] [id number] History of Present illness Narrative* Maritza Linn, THOMAS - OFFICE CORRESPONDENT - 07/30/2024 1:19 PM EST [facility] [...] 42.4 PLATELETS 10*3/uL 202 225 241 Assessment/Plan SCHULYER/ATN, possibly 2/2 hypoperfusion injury vs CRS (N17.0) [...] any questions or concerns. Maritza Linn APRN, OFFICE CORRESPONDENT [facility], [facility] [phone] Cosigned by Anand Mccullough MD at 07/30/2024 1:47 PM EST Associated attestation - Anand Mccullough MD - 07/30/2024 1:47 PM EST I have reviewed the above assessment and plan with the BASE WAD OPERATOR ADJUSTER. I agree with above note. Cr improving. [...] Strong pulses bilaterally. Fawad Galan MD Cardiology [facility]. [facility] [place] 11:34 AM 07/30/24 * Michelle Werner - [...] agreeableto drive him to clinic visits at [facility] for advanced heart failure care and evaluation. She is the only cdl team truck driver as Mr. Medina doesn't drive, and [...] - He is planning to follow-up at [facility] after conversation with him and his girlfriend, Loco, over the phone; she is agreeable to drive him, requests geospatial technician visits if possible as she works nights - I have discussed his care with Dr. Coppola at [facility], and we will plan to get him [...] he establish in advanced HF clinic at [facility] with him and his girlfriend, Loco, over [...] Trace edema bilaterally Fawad Galan MD Cardiology [facility]. [facility] [place] 12:25 PM 07/29/24 * Lilibeth Huber, CERTIFIED RECREATIONAL THERAPIST - OFFICE CORRESPONDENT - 07/29/2024 6:33 AM EST Hospitalist Progress Note 07/29/2024 Subjective: Admit Date: 07/23/2024 PCP: No primary care provider on file. Room#: B2-268/B2-268 A BRIEF HOSPITAL COURSE: Carlo is a 44 y.o. male with past medical history significant for heart failure with reduced ejection fraction, chronic kidney disease, left bundle branch block, hypertension, noncompliance behavior, history of non-ST elevation [place] who presented to the emergency room with [...] seem to be improving with diuresis. Mr Adam also stated that he would not take [...] HFrEF (heart failure with reduced ejection fraction) ([facility]) 06/13/2024 Acute kidney injury superimposed on CKD ([facility]) ([facility]) 07/03/2024 At risk for obstructive sleep apnea 05/31/2024 o/p sleep study recommended during admission CHF (congestive heart failure) ([facility]) CKD (chronic kidney disease) HFrEF (heart failure with reduced ejection fraction) ([facility]) 04/28/2024 History of left bundle branch block (LBBB) 06/19/2024 Hypercholesteremia Hypertension Noncompliance 06/19/2024 NSTEMI (non-ST elevated myocardial infarction) ([facility]) 07/11/2024 Pulmonary vascular congestion 04/28/2024 Sinus tachycardia 06/19/2024 LABS: CBC: Recent Labs 07/27/24 0103 07/28/24 0603 07/29/24 0324 WBC 5.7 5.6 5.9 RBC 4.16* 4.33* 3.73* HGB 13.8 14.3 12.5* HCT 42.4 44.8 38.9* MCV 101.9* 103.5* 104.3* RDW 13.3 13.2 13.0 PLT 241 225 202 BMP: Recent Labs 07/27/24 0103 07/28/24 0603 07/29/24 0324 NA 140 140 136 K 3.6 3.5 3.3* CL 102 99 103 CO2 24 31* 25 BUN 35* 29* 28* CREATININE 1.84* 1.66* 1.36* GLUCOSE 95 97 103* CALCIUM 8.4 8.3* 6.9* ANIONGAP 14* 10 8 LIVER PROFILE: Recent Labs 07/27/24 0103 07/28/24 0603 07/29/24 0324 AST 31 26 22 ALT 60* 49* [...] THOMAS Huber CNP Division of Hospitalist Medicine [facility] * Fawad Galan MD - 07/28/2024 3:31 [...] encouraged that he follow-up in clinic at [facility] for advanced HF given his low EF - Previuosly declined ICD - Will plan to discharge on losartan 25mg; he states he will not be taking the entresto at discharge - Continue apixaban, carvedilol - Plan to resume spironolactone at discharge - Will consider conversatin regarding location of his follow-up care; if he is willing to consider [facility] for follow-ups, I may discuss with HF navigator if a [facility] arranged ride is possible given the possible financial barrier for him (GF is only cdl team truck driver, challenge paying for gas) and his [...] seem to be improving with diuresis. Mr Adam also stated that he would not take entresto outpatient due to concerns for upset stomach.He would be agreeable to losartan, I stressed the importance of a medication in this class. We also discussed that he should plan to follow-up at [facility], and he indicated his only concern with [...] bilateral lower extremities Fawad Galan MD Cardiology [facility]. Heart and Vascular [place] 3:31 PM 07/28/24 * THOMAS Carlos CNP - 07/28/2024 12:56 PM EST Non billable note I attest and agree with Nicole Cross NP Student's assessment, progress note and plan of care for today * THOMAS Mayer CNP - 07/28/2024 12:07 PM EST Premier [...] -Complex MDM -High risk for progression to TRUST VAULT CUSTODIAN dependence given history of noncompliance -High risk of decompensation with noncompliance with medications/labs. -We will follow closely with you Thank you for the consult and the opportunity to participate in the care of this patient. Please donot hesitate to contact us with any questions or concerns. Maritza Linn APRN, OFFICE CORRESPONDENT [facility], [facility] [phone] Cosigned by Anand Mccullough MD at 07/28/2024 4:00 PM EST Associated attestation - Anand Mccullough MD - 07/28/2024 4:00 PM EST I have reviewed the above assessment and plan with the BASE WAD OPERATOR ADJUSTER. I agree with above note. Cr improving. C/w IV lasix. Replete K pRN. * Maritza Linn APRN - VIKKI - 07/27/2024 1:31 PM EST [facility] Progress Note Subjective/ 44 y.o. year old [...] from last 7 days Lab Units 07/27/24 0103 07/26/24 0907 07/24/24 0600 SODIUM mmol/L 140 138 138 POTASSIUM mmol/L 3.6 3.4* 4.3 CHLORIDE mmol/L 102 103 108* CO2 mmol/L 24 23 20* BUN mg/dL 35* 40* 38* CREATININE mg/dL 1.84* 2.14* 2.19* GLUCOSE mg/dL 95 114* 108* CALCIUM mg/dL 8.4 8.5 8.5 Results from last 7 days Lab Units 07/27/24 0103 07/26/24 0907 07/24/24 0600 WBC AUTO 10*3/uL 5.7 [...] to po diuresis tomorrow 07/28, d/w Jovanna JAMES cards -Follow BNP for guided diuresis 26,294-->20,238-->18,824-->18,561 [...] -Complex MDM -High risk for progression to TRUST VAULT CUSTODIAN dependence given history of noncompliance -High risk of decompensation with noncompliance with medications/labs. -We will follow closely with you Thank you for the consult and the opportunity to participate in the care of this patient. Please donot hesitate to contact us with any questions or concerns. Maritza Linn APRN, OFFICE CORRESPONDENT [facility], [employer] [phone] Cosigned by Anand Mccullough MD at 07/28/2024 3:58 PM EST * Jovanna Christian PA-C - 07/27/2024 12:36 PM EST [facility] [place] [facility] [place]Electrophysiology Progress Note HPI / Interval History: Mr. Carlo Medina, 44 year old male presents to [facility] due to heart failure. He has a history of nonischemic cardiomyopathy with severe biventricular failure, last EF measured 20% per transthoracic echo June 15, 2024. Hx of [facility] heart failure adm due to poor compliance and poor health literacy. He has had extended and multiple discussions about medical Rx. -recently DC from [facility] 07/05, [facility] 07/[facility], presented to the office 07/21 volume overloaded-in which he admitted he had not been taking most of his meds or diuretics. He has been recommended and has been referred to [facility] heart failure clinic. Recently noted to have increased wt as outpt at [facility] and K+5.8 was subsequently found. He was then readmitted to [facility], and placed on Lasix IV for diuresis. Nephrology has been following to assist. It is noted he had a large volume diuresis of 6400 cc over the last 24 hours. Renal function actually improved with this. I had spoken with Dr. Zhang in the office, who again recommended his follow-up being in the heart failure clinic at [facility]. He wanted him quoted a greater than [...] up in our heart failure clinic at [facility]. Dr. Zhang wanted again it reiterated that [...] Christian PA-C Date Of Service 07/27/2024 * Berenice Rosenthal APRN - OFFICE CORRESPONDENT - 07/27/2024 12:36 PM EST I attest and agree with Nicole Finlin BASE WAD OPERATOR ADJUSTER student's progress note, assessment and plan of [...] medical decision-making -legal surrogate decision maker is daughter, Zena - patient wanting girlfriend Loco(Kaitlin )to make [...] is a 44 y.o. male admitted to [facility] on 07/23/24 with complain of SOB and [...] Work history: not working now, worked at [employer] before [employer] status: No Caodaism alfredo: Islam ROS: See palliative care ROS/ESAS below; All other systems were reviewed and are negative. [place] Symptom Assessment Score [place] Score Pain Score (if non-verbal, add .FLACC [...] note were not included. Spiritual Care Note [facility] Patient Name:Carlo Medina Chief Complaint: Chief Complaint [...] Christian PA-C - 07/26/2024 1:08 PM EST [facility] [place] [facility] [place]iology /Electrophysiology Progress Note HPI / Interval History: Mr. Carlo Medina, 44 year old male presents to [facility] due to heart failure. He has a history of nonischemic cardiomyopathy with severe biventricular failure, last EF measured 20% per transthoracic echo June 15, 2024. Hx of [facility] heart failure adm due to poor compliance and poor health literacy. He has had extended and multiple discussions about medical Rx. -recently DC from [facility] 07/05, [facility] 07/[facility], presented to the office 07/21 volume overloaded-in which he admitted he had not been taking most of his meds or diuretics. He has been recommended and has been referred to [facility] heart failure clinic. Recently noted to have increased wt as outpt at [facility] and K+5.8 was subsequently found. - he continues to be diuresed, IV lasix 80 mg twice daily. He continues to state he does not wish to be transferred to [facility]. States he will consider outpatient follow up in the heart failure clinic at [facility]. We had a lengthy discussion regarding the [...] PA-C Date Of Service 07/26/2024 * Berenice Rosenthal APRN - VIKKI - 07/25/2024 4:06 PM EST Hospitalist Progress Note 07/25/2024 Subjective: Admit Date: 07/23/2024 PCP: No primary care provider on file. Room#: [id number] A BRIEF HOSPITAL COURSE: Carlo is a 44 y.o. male with past medical history significant for heart failure with reduced ejection fraction, chronic kidney disease, left bundle branch block, hypertension, noncompliance behavior, history of non-ST elevation [place] who presented to the emergency room with [...] HFrEF (heart failure with reduced ejection fraction) ([facility]) 06/13/2024 Acute kidney injury superimposed on CKD ([facility]) ([facility]) 07/03/2024 At risk for obstructive sleep apnea 05/31/2024 o/p sleep study recommended during admission CHF (congestive heart failure) ([facility]) CKD (chronic kidney disease) HFrEF (heart failure with reduced ejection fraction) ([facility]) 04/28/2024 History of left bundle branch block (LBBB) 06/19/2024 Hypercholesteremia Hypertension Noncompliance 06/19/2024 NSTEMI (non-ST elevated myocardial infarction) ([facility]) 07/11/2024 Pulmonary vascular congestion 04/28/2024 Sinus tachycardia [...] function/K+ level, spoke aboutHF outpatient clinic at [facility] -Cardiology started Metolazone 5 mg daily -Continue [...] Emergency Contact: Indira Medina Mobile Relation: Sister Berenice Byrnes THOMAS Rosenthal CNP Division of Hospitalist Medicine [facility] * Angel Luis Lassiter MD - 07/25/2024 [...] weights are notreliable by standing scales at [facility]. See weight below: * THOMAS Mi CNP - 07/25/2024 10:03 AM EST [facility] [place] [facility] [place]iology /Electrophysiology Progress Note HPI / Interval History: Mr. Carlo Medina, 44 year old male presents to [facility] due to heart failure. He has a history of nonischemic cardiomyopathy with severe biventricular failure, last EF measured 20% per transthoracic echo June 15, 2024. Hx of [facility] heart failure adm due to poor compliance and poor health literacy. He has had extended and multiple discussions about medical Rx. -recently DC from [facility] 07/05, [facility] 07[facility], presented to the office 07/21 volume overloaded-in which he admitted he had not been taking most of his meds or diuretics. He has been recommended and has been referred to [facility] heart failure clinic. Recently noted to have increased wt as outpt at [facility] and K+5.8 was subsequently found. - he continues to be diuresed, IV lasix 80 mg twice daily. He continues to state he does not wish to be transferred to [facility]. States he will consider outpatient follow up in the heart failure clinic at [facility]. We had a lengthy discussion regarding the [...] hypertension, noncompliance behavior, history of non-ST elevation [place] who presented to the emergency room with [...] HFrEF (heart failure with reduced ejection fraction) ([facility]) 06/13/2024 Acute kidney injury superimposed on CKD ([facility]) ([facility]) 07/03/2024 At risk for obstructive sleep apnea 05/31/2024 o/p sleep study recommended during admission CHF (congestive heart failure) ([facility]) CKD (chronic kidney disease) HFrEF (heart failure with reduced ejection fraction) ([facility]) 04/28/2024 History of left bundle branch block (LBBB) 06/19/2024 Hypercholesteremia Hypertension Noncompliance 06/19/2024 NSTEMI (non-ST elevated myocardial infarction) ([facility]) 07/11/2024 Pulmonary vascular congestion 04/28/2024 Sinus tachycardia 06/19/2024 LABS: CBC: Recent Labs 07/23/247 07/24/24 0600 WBC 8.8 7.4 RBC 4.55 4.34* HGB 15.2 14.4 HCT 46.5 45.0 MCV 102.2* 103.7* RDW 13.8 13.9 PLT 255 225 BMP: Recent Labs 07/23/24 2127 07/24/24 0243 07/24/24 [...] function/K+ level, spoke aboutHF outpatient clinic at [facility] -Continue monitor daily weight -Monitor renal function [...] THOMAS Munroe CNP Division of Hospitalist Medicine Acute care [facility] documented in this [facility]01-31-2025 Nurse Note* Tamiko Live RN - 07/30/2024 [...] list for patient to find a PCP [id number] Nurse Note* Tamiko Live RN - 07/30/2024 [...] list for patient to find a PCP drBill * Tamiko Live RN - 07/29/2024 10:15 AM EST Nursing went to give IV Magnesium and patient refused. Notified Lilibeth Anguiano APRN. * Raj Chilel RN - 07/26/2024 5:31 [...] draw is with US. Request made to TRUST VAULT CUSTODIAN nurse. * Osiris Huber RN - 07/26/2024 5:19 AM EST Attempted to draw lab but patient refused at this time.informed the provider. * Osiris Huber RN - 07/25/2024 5:00 AM EST Attempted to draw lab but patient is refusing to draw lab.Informed the doctor. documented in this [facility]01-31-2025 Note* Nurse Navigation Note - Dia Gaitan RN - 07/30/2024 12:04 PM EST HF casing crew: Called pt to confirm that appt at 10:15AM on 08/[address] Astudillo is early enough in the day to accommodate pt's girlfriend's work schedule as she works nights. Offered earlier appt options, but pt states 10:15AM will work out great, no need to reschedule. Confirmed pt knows how to get to [facility]. HF action plan updated in AVS with [facility] contact information. If any further assistance needed, use Secure Chat. Will complete HF discharge call on Wednesday 08/02. [facility] [id number] Note* Nurse Navigation Note - Dia Gaitan RN - 07/30/2024 12:04 PM EST HF casing crew: Called pt to confirm that appt at 10:15AM on 08/[address] Astudillo is early enough in the day to accommodate pt's girlfriend's work schedule as she works nights. Offered earlier appt options, but pt states 10:15AM will work out great, no need to reschedule. Confirmed pt knows how to get to [facility]. HF action plan updated in AVS with [facility] contact information. If any further assistance needed, use Secure Chat. Will complete HF discharge call on Wednesday 08/02. [facility] [id number] Miscellaneous Notes* Nurse Navigation Note - Dia Gaitan RN - 07/30/2024 12:04 PM EST HF casing crew: Called pt to confirm that appt at 10:15AM on 08/[address] Astudillo is early enough in the day to accommodate pt's girlfriend's work schedule as she works nights. Offered earlier appt options, but pt states 10:15AM will work out great, no need to reschedule. Confirmed pt knows how to get to [facility]. HF action plan updated in AVS with [facility] contact information. If any further assistance needed, use Secure Chat. Will complete HF discharge call on Wednesday 08/02. * Care Coordination - Brittany Alston RN - 07/30/2024 11:28 AM EST Care Management Progress Note Received another call from [facility] Inpatient Feeder Operator telling me that BASE WAD OPERATOR ADJUSTER needs to call back transfer center today at [facility] even if pt gets DCED today and fax demographics. Secure chatted Aquadale S NPand updated that insurance is requesting she call transfer line and to obtain fax where demos can be faxed per O request. Obtained [facility] fax number from BASE WAD OPERATOR ADJUSTER [phone] and demos faxed as requested. Length of Stay (Days): 2 GMLOS: No GMLOS Documented * Care Coordination - Brittany Alston RN - 07/30/2024 8:58 AM EST Care Management Progress Note Received call from Pauline from [facility] who is pt's Inpatient retail associate manager bilingual and she informed this TCC that pt's insurance is OON and should be transferred. Informed her per BASE WAD OPERATOR ADJUSTER note that BASE WAD OPERATOR ADJUSTER tried to transfer last evening and there were no beds available at [facility]. Met pt at bedside and updated him that his insurance told this TCC that [facility] is out of network with his insurance. [...] CNP - 07/29/2024 5:11 PM EST Called [facility] transfer line to see about transferring patient to them as he is apparently outof network. Was told that they have a waiting list for beds. Gave [facility] patient information and will call back tomorrow [...] No primary care provider on file. Room#: [facility] A BRIEF HOSPITAL COURSE: Carlo is a 44 y.o. male with past medical history of heart failure with reduced ejection fraction, chronic kidney disease, left bundle branch block, hypertension, noncompliance behavior, history ofnon-ST elevation [place] who presented to the emergency department with [...] HFrEF (heart failure with reduced ejection fraction) ([facility]) 06/13/2024 Acute kidney injury superimposed on CKD ([facility]) ([facility]) 07/03/2024 At risk for obstructive sleep apnea 05/31/2024 o/p sleep study recommended during admission CHF (congestive heart failure) ([facility]) CKD (chronic kidney disease) HFrEF (heart failure with reduced ejection fraction) ([facility]) 04/28/2024 History of left bundle branch block [...] Sister Nicole Cross Division of Hospitalist Medicine [facility] Cosigned by THOMAS Carlos CNP at 07/28/2024 [...] Chart reviewed. Pt has been admitted to [facility] several times with in the past month. Has a history of non-compliance. Cardiology, nephrology, and palliative following. Receiving IV Lasix. Cr improving at this time. Pt will not qualify for [facility] due to no PCP. Discharge plan will be home when medically ready. sales and business development manager to follow and assist as needed. * Medical Student - Nicole [place] - 07/27/2024 12:03 PM EST Hospitalist Progress Note 07/27/2024 Subjective: Admit Date: 07/23/2024 PCP: No primary care provider on file. Room#: B2268/[id number] A BRIEF HOSPITAL COURSE: Carlo is a 44 y.o. male with past medical history of heart failure with reduced ejection fraction, chronic kidney disease, left bundle branch block, hypertension, noncompliance behavior, history ofnon-ST elevation [place] who presented to the emergency department with [...] HFrEF (heart failure with reduced ejection fraction) ([facility]) 06/13/2024 Acute kidney injury superimposed on CKD ([facility]) ([facility]) 07/03/2024 At risk for obstructive sleep apnea 05/31/2024 o/p sleep study recommended during admission CHF (congestive heart failure) ([facility]) CKD (chronic kidney disease) HFrEF (heart failure with reduced ejection fraction) ([facility]) 04/28/2024 History of left bundle branch block (LBBB) 06/19/2024 Hypercholesteremia Hypertension Noncompliance 06/19/2024 NSTEMI (non-ST elevated myocardial infarction) ([facility]) 07/11/2024 Pulmonary vascular congestion 04/28/2024 Sinus tachycardia [...] Sister Nicole Cross Division of Hospitalist Medicine [facility] Cosigned by THOMAS Carlos CNP at 07/28/2024 [...] block, hypertension, noncompliance behavior, history ofnon-ST elevation [place] who presented to the emergency department with [...] HFrEF (heart failure with reduced ejection fraction) ([facility]) 06/13/2024 Acute kidney injury superimposed on CKD ([facility]) ([facility]) 07/03/2024 At risk for obstructive sleep apnea 05/31/2024 o/p sleep study recommended during admission CHF (congestive heart failure) ([facility]) CKD (chronic kidney disease) HFrEF (heart failure with reduced ejection fraction) ([facility]) 04/28/2024 History of left bundle branch block (LBBB) 06/19/2024 Hypercholesteremia Hypertension Noncompliance 06/19/2024 NSTEMI (non-ST elevated myocardial infarction) ([facility]) 07/11/2024 Pulmonary vascular congestion 04/28/2024 Sinus tachycardia [...] Cross Division of Hospitalist Medicine Acute care [facility] Cosigned by THOMAS Carlos CNP at 07/28/2024 2:35 PM EST * Nurse Navigation Note - Dia Gaitan RN - 07/26/2024 10:20 AM EST 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 Pt admitted with acute chronic [...] screenings): - S.C. request sent to the Hot Mill Supervisor Management team to complete serial telephone outreaches to pt with a focus on reinforcing all HF education and importance of HF GDMT and follow up compliance. - Pt with history of refusing transfer from [facility] to [facility] while hospitalized. Recommend confirming pt is agreeable to follow up with [facility]. If unable or pt does not wish to come to [facility], recommend continued follow up at [facility]. Heart Failure Accreditation Quality Metrics All Clinical Practice Guidelines and references available on the [facility] Heart Failure resource page (Resources --> [facility] --> Heart Failure) Established Bun Panner: Dr. Zhang/Yulissa Ulloa NP Follow up scheduled [...] CKD3 and hyperkalemia (Treatment pathway available on [employer] Heart Failure resource page) LUCRECIA/ARB/ARNI: No (HD Entresto BID on hold) BB: Yes, carvedilol 25mg BID MRA: No SGLT2-I: No Diuretic: Yes- 80mg IV lasix BID (40gm PO lasix daily FURNACE COMBUSTION ANALYST) Hydral/ISDN: N/A ENGINE DYNAMOMETER TESTER-D Appropriateness Screen- N/A- Noncompliant with [employer] and [...] Adult Goal: Free from fall injury 07/24/2024 1726 by Slime Lange RN Outcome: Progressing 07/24/2024 1458 by Slime Lange RN Outcome: Progressing Problem: Discharge Planning Goal: Discharge to home or other facility with appropriate resources 07/24/2024 1726 by Slime Lange RN Outcome: [...] Progressing Goal: Nutritional status is improving 07/24/2024 172 by Slime Lange RN Outcome: Progressing 07/24/2024 1458 by Slime Lange RN Outcome: Progressing Problem: Activity Intolerance/Impaired Mobility Goal: Mobility/activity is maintained at optimum level for patient 07/24/2024 172 by Slime Lange RN Outcome: [...] status is improving Outcome: Progressing documented in [facility]01-31-2025 Note* Care Coordination - Brittany Alston RN - 07/30/2024 11:28 AM EST Care Management Progress Note Received another call from O Inpatient Feeder Operator telling me that BASE WAD OPERATOR ADJUSTER needs to call back transfer center today at [facility] even if pt gets DCED today and fax demographics. Secure chatted Adri Loaiza NPand updated that insurance is requesting she call transfer line and to obtain fax where demos can be faxed per MMO request. Obtained [facility] fax number from BASE WAD OPERATOR ADJUSTER [phone] and demos faxed as requested. Length of Stay (Days): 2 GMLOS: No GMLOS Documented [facility] [id number] Note* Care Coordination - Brittany Alston RN - 07/30/2024 11:28 AM EST Care Management Progress Note Received another call from [facility] Inpatient Feeder Operator telling me that BASE WAD OPERATOR ADJUSTER needs to call back transfer center today at [facility] even if pt gets DCED today and fax demographics. Secure chatted Adri Fadia NPand updated that insurance is requesting she call transfer line and to obtain fax where demos can be faxed per [facility] request. Obtained [facility] fax number from BASE WAD OPERATOR ADJUSTER [phone] and demos faxed as requested. Length of Stay (Days): 2 GMLOS: No GMLOS Documented [facility] [id number] [facility]01-31-2025 Hospital course Narrative* Lilibeth Hubre APRN - OFFICE CORRESPONDENT - 07/30/2024 11:05 AM EST Hospitalist Discharge [...] hypertension, noncompliance behavior, history of non-ST elevation [place] who presented to the emergency room with [...] HFrEF (heart failure with reduced ejection fraction) ([facility]) 06/13/2024 Acute kidney injury superimposed on CKD ([facility]) ([facility]) 07/03/2024 At risk for obstructive sleep apnea 05/31/2024 o/p sleep study recommended during admission CHF (congestive heart failure) ([facility]) CKD (chronic kidney disease) HFrEF (heart failure with reduced ejection fraction) ([facility]) 04/28/2024 History of left bundle branch block (LBBB) 06/19/2024 Hypercholesteremia Hypertension Noncompliance 06/19/2024 NSTEMI (non-ST elevated myocardial infarction) ([facility]) 07/11/2024 Pulmonary vascular congestion 04/28/2024 Sinus tachycardia 06/19/2024 Procedures: Narrative & Impression Patient Name: CARLO MEDINA : 1980 Exam [...] 3.3* 2.8* CL 99 103 108* CO2 31* 25 24 BUN 29* 28* 30* CREATININE 1.66* 1.36* [...] Complexity: follow up within 7-14 calendar days (22892) [x] Severe Complexity: follow up within 7 calendar days (28874) Follow up Testing, Pending results or Referrals [...] Castillo CNP Division of Hospitalist Medicine Acute [facility] 07/30/2024, 11:06 AM Cosigned by Darrell Kohler MD at 07/30/2024 7:16 PM EST documented in this [facility]01-31-2025 Note* Care Coordination - Brittany Alston RN - 07/30/2024 8:58 AM EST Care Management Progress Note Received call from Pauline from O who is pt's Inpatient retail associate manager bilingual and she informed this TCC that pt's insurance is OON and should be transferred. Informed her per BASE WAD OPERATOR ADJUSTER note that BASE WAD OPERATOR ADJUSTER tried to transfer last evening and there were no beds available at [facility]. Met pt at bedside and updated him that his insurance told this TCC that [facility] is out of network with his insurance. Pt states he did NOT know this. Pt encouraged to reach out to his insurance for further explanation. Length of Stay (Days): 2 GMLOS: No GMLOS Documented [facility] [id number] Note* Care Coordination - Brittany Alston RN - 07/30/2024 8:58 AM EST Care Management Progress Note Received call from Pauline from [facility] who is pt's Inpatient retail associate manager bilingual and she informed this TCC that pt's insurance is OON and should be transferred. Informed her per BASE WAD OPERATOR ADJUSTER note that BASE WAD OPERATOR ADJUSTER tried to transfer last evening and there were no beds available at [facility]. Met pt at bedside and updated him that his insurance told this TCC that [facility] is out of network with his insurance. Pt states he did NOT know this. Pt encouraged to reach out to his insurance for further explanation. Length of Stay (Days): 2 GMLOS: No GMLOS Documented [facility] [id number] Plan of care note* Care Plan - [...] monitored and maintained or improved Outcome: Progressing [facility] [id number] Plan of care note* Care Plan - [...] Goal: Nutritional status is improving Outcome: Progressing [facility] [id number] Note* Significant Event - THOMAS Larson CNP - 07/29/2024 5:11 PM EST Called [facility] transfer line to see about transferring patient to them as he is apparently outof network. Was told that they have a waiting list for beds. Gave [facility] patient information and will call back tomorrow to see where they are with beds. Patient likely will be discharged tomorrow. [facility] [id number] Note* Significant Event - THOMAS Larson CNP - 07/29/2024 5:11 PM EST Called [facility] transfer line to see about transferring patient to them as he is apparently outof network. Was told that they have a waiting list for beds. Gave [facility] patient information and will call back tomorrow to see where they are with beds. Patient likely will be discharged tomorrow. [facility] [id number] Plan of care note* Care Plan - [...] plan, medications, and discharge instructions Outcome: Progressing [facility] [id number] Nurse Note* Tamiko Live RN - 07/29/2024 10:15 AM EST Nursing went to give IV Magnesium and patient refused. Notified Lilibeth Anguiano APRN. [facility] [id number] Plan of care note* Care Plan - [...] Goal: Nutritional status is improving Outcome: Progressing [facility] CenterOspsbl12-12-1402 NoteNon billable note I attest and agree with Nicole Cross BASE WAD OPERATOR ADJUSTER Student's assessment, progress note and plan of care for today [facility]01-29-2025 Note* Medical Student - Nicole Cross - 07/28/2024 12:37 PM EST Hospitalist Progress Note 07/28/2024 Subjective: Admit Date: 07/23/2024 PCP: No primary care provider on file. Room#: B2-268/B2268 A BRIEF HOSPITAL COURSE: Carlo is a 44 y.o. male with past medical history of heart failure with reduced ejection fraction, chronic kidney disease, left bundle branch block, hypertension, noncompliance behavior, history ofnon-ST elevation [place] who presented to the emergency department with [...] HFrEF (heart failure with reduced ejection fraction) ([facility]) 06/13/2024 Acute kidney injury superimposed on CKD ([facility]) ([facility]) 07/03/2024 At risk for obstructive sleep apnea 05/31/2024 o/p sleep study recommended during admission CHF (congestive heart failure) ([facility]) CKD (chronic kidney disease) HFrEF (heart failure with reduced ejection fraction) ([facility]) 04/28/2024 History of left bundle branch block (LBBB) 06/19/2024 Hypercholesteremia Hypertension Noncompliance 06/19/2024 NSTEMI (non-ST elevated myocardial infarction) ([facility]) 07/11/2024 Pulmonary vascular congestion 04/28/2024 Sinus tachycardia [...] Sister Nicole Cross Division of Hospitalist Medicine [facility] Cosigned by THOMAS Carlos CNP at 07/28/2024 2:36 PM EST [facility] [id number] Note* Medical Student - Nicole Cross - 07/28/2024 12:37 PM EST Hospitalist Progress Note 07/28/2024 Subjective: Admit Date: 07/23/2024 PCP: No primary care provider on file. Room#: B2-268/B2268 A BRIEF HOSPITAL COURSE: Carlo is a 44 y.o. male with past medical history of heart failure with reduced ejection fraction, chronic kidney disease, left bundle branch block, hypertension, noncompliance behavior, history ofnon-ST elevation [place] who presented to the emergency department with [...] function. Nephrology consulted today by cardiology as SCUHYLER on CKD is limiting cardiac treatment options. [...] HFrEF (heart failure with reduced ejection fraction) ([facility]) 06/13/2024 Acute kidney injury superimposed on CKD ([facility]) ([facility]) 07/03/2024 At risk for obstructive sleep apnea 05/31/2024 o/p sleep study recommended during admission CHF (congestive heart failure) ([facility]) CKD (chronic kidney disease) HFrEF (heart failure with reduced ejection fraction) ([facility]) 04/28/2024 History of left bundle branch block (LBBB) 06/19/2024 Hypercholesteremia Hypertension Noncompliance 06/19/2024 NSTEMI (non-ST elevated myocardial infarction) ([facility]) 07/11/2024 Pulmonary vascular congestion 04/28/2024 Sinus tachycardia [...] Contact: Indira Medina Mobile Relation: Sister Nicole [place] Division of Hospitalist Medicine [facility] Cosigned by THOMAS Carlos CNP at 07/28/2024 2:36 PM EST [facility] [id number] Plan of care note* Care Plan - [...] oxygenated and ventilation is improved Outcome: Progressing [facility] [id number] Plan of care note* Care Plan - [...] Goal: Nutritional status is improving Outcome: Progressing [facility] [id number] Note* Care Coordination - Narcisa Tavarez RN - 07/27/2024 3:32 PM EST Pt admitted for SCHUYLER. Chart reviewed. Pt has been admitted to [facility] several times with in the past month. Has a history of non-compliance. Cardiology, nephrology, and palliative following. Receiving IV Lasix. Cr improving at this time. Pt will not qualify for HHC due to no PCP. Discharge plan will be home when medically ready. sales and business development manager to follow and assist as needed. [facility] [id number] Note* Care Coordination - Narcisa Tavarez RN - 07/27/2024 3:32 PM EST Pt admitted for SCHUYLER. Chart reviewed. Pt has been admitted to [facility] several times with in the past month. Has a history of non-compliance. Cardiology, nephrology, and palliative following. Receiving IV Lasix. Cr improving at this time. Pt will not qualify for HHC due to no PCP. Discharge plan will be home when medically ready. sales and business development manager to follow and assist as needed. [facility] [id number] NoteI attest and agree with Nicole Cross BASE WAD OPERATOR ADJUSTER student's progress note, assessment and plan of care [facility]01-28-2025 Note* Medical Student - Nicole Cross - 07/27/2024 12:03 PM EST Hospitalist Progress Note 07/27/2024 Subjective: Admit Date: 07/23/2024 PCP: No primary care provider on file. Room#: B2-268/B2-268 A BRIEF HOSPITAL COURSE: Carlo is a 44 y.o. male with past medical history of heart failure with reduced ejection fraction, chronic kidney disease, left bundle branch block, hypertension, noncompliance behavior, history ofnon-ST elevation [place] who presented to the emergency department with [...] HFrEF (heart failure with reduced ejection fraction) ([facility]) 06/13/2024 Acute kidney injury superimposed on CKD ([facility]) ([facility]) 07/03/2024 At risk for obstructive sleep apnea 05/31/2024 o/p sleep study recommended during admission CHF (congestive heart failure) ([facility]) CKD (chronic kidney disease) HFrEF (heart failure with reduced ejection fraction) ([facility]) 04/28/2024 History of left bundle branch block (LBBB) 06/19/2024 Hypercholesteremia Hypertension Noncompliance 06/19/2024 NSTEMI (non-ST elevated myocardial infarction) ([facility]) 07/11/2024 Pulmonary vascular congestion 04/28/2024 Sinus tachycardia [...] Cross Division of Hospitalist Medicine Acute care [facility] Cosigned by THOMAS Carlos CNP at 07/28/2024 2:36 PM EST [facility] [id number] Note* Medical Student - Nicole Cross - 07/27/2024 12:03 PM EST Hospitalist Progress Note 07/27/2024 Subjective: Admit Date: 07/23/2024 PCP: No primary care provider on file. Room#: -268/268 A BRIEF HOSPITAL COURSE: Carlo is a 44 y.o. male with past medical history of heart failure with reduced ejection fraction, chronic kidney disease, left bundle branch block, hypertension, noncompliance behavior, history ofnon-ST elevation [place] who presented to the emergency department with [...] HFrEF (heart failure with reduced ejection fraction) ([facility]) 06/13/2024 Acute kidney injury superimposed on CKD ([facility]) ([facility]) 07/03/2024 At risk for obstructive sleep apnea 05/31/2024 o/p sleep study recommended during admission CHF (congestive heart failure) ([facility]) CKD (chronic kidney disease) HFrEF (heart failure with reduced ejection fraction) ([facility]) 04/28/2024 History of left bundle branch block (LBBB) 06/19/2024 Hypercholesteremia Hypertension Noncompliance 06/19/2024 NSTEMI (non-ST elevated myocardial infarction) ([facility]) 07/11/2024 Pulmonary vascular congestion 04/28/2024 Sinus tachycardia [...] Sister Nicole Cross Division of Hospitalist Medicine [facility] Cosigned by THOMAS Carlos CNP at 07/28/2024 2:36 PM EST [facility] [id number] Plan of care note* Care Plan - [...] and electrolyte balance are achieved/maintained Outcome: Progressing [facility] [id number] Consult note* Anand Mccullough MD - 07/26/2024 5:47 PM EST . [facility] Nephrology Consultation Note Reason for consultation: SCHUYLER on CKD Chief Complaint: Swelling legs and SOB History of Presenting Illness Patient is a 44 y.o. male with past medical history of with past medical history of heart failure with reduced ejection fraction, chronic kidney disease, left bundle branch block, hypertension, noncompliance, history of non-ST elevation [place] who presented to the emergency department with complaint ofswelling in the legs and shortness of breath along with abnormal labs. 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 Patient [...] HFrEF (heart failure with reduced ejection fraction) ([facility]) 06/13/2024 Acute kidney injury superimposed on CKD ([facility]) ([facility]) 07/03/2024 At risk for obstructive sleep apnea 05/31/2024 o/p sleep study recommended during admission CHF (congestive heart failure) ([facility]) CKD (chronic kidney disease) HFrEF (heart failure with reduced ejection fraction) ([facility]) 04/28/2024 History of left bundle branch block (LBBB) 06/19/2024 Hypercholesteremia Hypertension Noncompliance 06/19/2024 NSTEMI (non-ST elevated myocardial infarction) ([facility]) 07/11/2024 Pulmonary vascular congestion 04/28/2024 Sinus tachycardia 06/19/2024 Past Surgical History: Procedure Laterality Date CARDIAC CATHETERIZATION N/A 06/17/2024 Performed by Akilah Diaz MD at [facility] Cardiac Supervisor Dry Cleaning Review of Systems All 12 systems reviewed [...] 0 min Stress: Stress Concern Present (07/12/2024) [place] [employer] [employer] - Occupational Stress Questionnaire Feeling of Stress : To some extent Social Connections: Moderately Integrated (07/12/2024) Social Connection and Isolation Panel [NHANES] Frequency of Communication with Friends and Family: Twice a week Frequency of Social Gatherings with Friends and Family: Once a week Attends Caodaism Services: 1 to 4 times per year [...] -Follow BNP for guided diuresis 26,294-->20,238-->18,824 -No TRUST VAULT CUSTODIAN indicated at this time however patient at [...] above. I can be easily reachedvia secure PrivateFly message SIGNATURE: Anand Mccullough MD PATIENT NAME: Carlo Medina DATE: July 26, 2024 Office [facility] [phone] QE Phone: [phone] Consult note* Anand Mccullough MD - 07/26/2024 5:47 PM EST . [facility] Nephrology Consultation Note Reason for consultation: SCHUYLER on CKD Chief Complaint: Swelling legs and SOB History of Presenting Illness Patient is a 44 y.o. male with past medical history of with past medical history of heart failure with reduced ejection fraction, chronic kidney disease, left bundle branch block, hypertension, noncompliance, history of non-ST elevation [place] who presented to the emergency department with complaint ofswelling in the legs and shortness of breath along with abnormal labs. 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 Patient [...] HFrEF (heart failure with reduced ejection fraction) ([facility]) 06/13/2024 Acute kidney injury superimposed on CKD ([facility]) ([facility]) 07/03/2024 At risk for obstructive sleep apnea 05/31/2024 o/p sleep study recommended during admission CHF (congestive heart failure) ([facility]) CKD (chronic kidney disease) HFrEF (heart failure with reduced ejection fraction) ([facility]) 04/28/2024 History of left bundle branch block (LBBB) 06/19/2024 Hypercholesteremia Hypertension Noncompliance 06/19/2024 NSTEMI (non-ST elevated myocardial infarction) ([facility]) 07/11/2024 Pulmonary vascular congestion 04/28/2024 Sinus tachycardia 06/19/2024 Past Surgical History: Procedure Laterality Date CARDIAC CATHETERIZATION N/A 06/17/2024 Performed by Akilah Diaz MD at [facility] Cardiac Supervisor Dry Cleaning Review of Systems All 12 systems reviewed [...] 0 min Stress: Stress Concern Present (07/12/2024) [place] [employer] - Occupational Stress Questionnaire Feeling of Stress : To some extent Social Connections: Moderately Integrated (07/12/2024) Social Connection and Isolation Panel [NHANES] Frequency of Communication with Friends and Family: Twice a week Frequency of Social Gatherings with Friends and Family: Once a week Attends Caodaism Services: 1 to 4 times per year [...] -Follow BNP for guided diuresis 26,294-->20,238-->18,824 -No TRUST VAULT CUSTODIAN indicated at this time however patient at [...] above. I can be easily reachedvia secure PrivateFly message SIGNATURE: Anand Mccullough MD PATIENT NAME: Carlo Medina DATE: July 26, 2024 Office [facility] [phone] * Chuyita Holloway MD - 07/25/2024 11:27 [...] encouraged patient to fill HCPOA document, consulted 7th grade social studies teacher for assistance - discussed goals, discussed patient's EF of 20 %, his medical compliance - discussed CPR, Intubation, Vent - patient stated that he feels fine, he wants everything done for him including CPR, intubation, Vent - Code status remains Full Code - will request palliative gameroom technician for support - discussed with Bun Panner Dr. Lassiter - will continue to have [...] medical non compliance who was admitted to [facility] on 07/23/24 with complain of SOB and [...] Work history: not working now, worked at [employer] before status: No Caodaism alfredo: Islam ROS: See palliative care ROS/ESAS below; All other systems were reviewed and are negative. [place] Symptom Assessment Score [place] Score Pain Score (if non-verbal, add .FLACC [...] HFrEF (heart failure with reduced ejection fraction) ([facility]) 06/13/2024 Acute kidney injury superimposed on CKD ([facility]) ([facility]) 07/03/2024 At risk for obstructive sleep apnea 05/31/2024 o/p sleep study recommended during admission CHF (congestive heart failure) ([facility]) CKD (chronic kidney disease) HFrEF (heart failure with reduced ejection fraction) ([facility]) 04/28/2024 History of left bundle branch block (LBBB) 06/19/2024 Hypercholesteremia Hypertension Noncompliance 06/19/2024 NSTEMI (non-ST elevated myocardial infarction) ([facility]) 07/11/2024 Pulmonary vascular congestion 04/28/2024 Sinus tachycardia 06/19/2024 Past Surgical History: Procedure Laterality Date CARDIAC CATHETERIZATION N/A 06/17/2024 Performed by Akilah Diaz MD at [facility] Cardiac Supervisor Dry Cleaning Family History Problem Relation Name Age of [...] AM ESTAssociated Order(s): IP CONSULT TO CARDIOLOGY [facility] [place] [facility] [place] Consult Note Reason for Consult/Chief Complaint: HF Established hydraulic corrugating machine operator: Leatha/Rocky HF specialist History of Present Illness: Carlo Medina is a 44 y.o. male nonischemic cardiomyopathy with severe biventricular failure, lastEF measured 20% per transthoracic echo June 15, 2024. [facility] [place] due to poor compliance and poor health literacy. He has had extended and multiple discussions about medical Rx. Recently noted to have increased wt as outpt at [facility] and K+5.8 was subsequently found. Prior to that: Was Dc'd 07/05 from [facility]. That note says they tried to keep [...] readm for HF shortly thereafter 07/11 to [facility]. Was Dc'd 07/16 from [facility] w/lasix 20 PRN daily for wt gain [...] hospital. Does not want to go back [facility] hospital Seems willing to do [facility] HF clinic when I told him it [...] Anticoagulation: OAC for DVT (mgt per primary) ICD/ENGINE DYNAMOMETER TESTER: Candidate for ENGINE DYNAMOMETER TESTER-D if LBBB became chronic but would need to agree to [facility] evaluation as outpt Last CPET: none Last [...] strongly recommended for Adv HF mgt at [facility] HF clinic; this is supported by his B hydraulic corrugating machine operator Dr. Zhang. Very high risk for readmission. Appropriate for cardiac rehab if he would attend Noncompliance likely due to multiple factors not all known at this time (medical literacy and social support are issues) contribute to this risk and his poor prognosis longterm. There may be an opportunity for improved [...] be managed here would favor txf to [facility] but pt would likely refuse as he [...] Villalobos on 06/15/2024 1:59 PM Last Cath 12/15/24 CARDIAC PROCEDURE 06/17/2024 11:14 AM (Final) Conclusion [...] DATE of SERVICE: 07/24/2024 [facility]01-27-2025 Nurse Note* Raj Chilel RN - 07/26/2024 5:31 PM EST Pt refusing carvedilol and potassium at this time, states he doesn't take meds until 2099. Medication moved to 2099. [facility] [id number] Nurse Note* Raj Chilel RN - 07/26/2024 [...] soda. See I's & O's in flowsheets. [facility] [id number] Note* Medical Student - Nicole Cross - 07/26/2024 1:22 PM EST Hospitalist Progress Note 07/26/2024 Subjective: Admit Date: 07/23/2024 PCP: No primary care provider on file. Room#: B2-268/B2-268 A BRIEF HOSPITAL COURSE: Carlo is a 44 y.o. male with past medical history of heart failure with reduced ejection fraction, chronic kidney disease, left bundle branch block, hypertension, noncompliance behavior, history ofnon-ST elevation [place] who presented to the emergency department with [...] HFrEF (heart failure with reduced ejection fraction) ([facility]) 06/13/2024 Acute kidney injury superimposed on CKD ([facility]) ([facility]) 07/03/2024 At risk for obstructive sleep apnea 05/31/2024 o/p sleep study recommended during admission CHF (congestive heart failure) ([facility]) CKD (chronic kidney disease) HFrEF (heart failure with reduced ejection fraction) ([facility]) 04/28/2024 History of left bundle branch block (LBBB) 06/19/2024 Hypercholesteremia Hypertension Noncompliance 06/19/2024 NSTEMI (non-ST elevated myocardial infarction) ([facility]) 07/11/2024 Pulmonary vascular congestion 04/28/2024 Sinus tachycardia [...] Sister Nicole Cross Division of Hospitalist Medicine [facility] Cosigned by THOMAS Carlos CNP at 07/28/2024 2:35 PM EST [facility] [id number] Note* Medical Student - Nicole Cross - 07/26/2024 1:22 PM EST Hospitalist Progress Note 07/26/2024 Subjective: Admit Date: 07/23/2024 PCP: No primary care provider on file. Room#: [facility]268/[facility] A BRIEF HOSPITAL COURSE: Carlo is a 44 y.o. male with past medical history of heart failure with reduced ejection fraction, chronic kidney disease, left bundle branch block, hypertension, noncompliance behavior, history ofnon-ST elevation [place] who presented to the emergency department with [...] HFrEF (heart failure with reduced ejection fraction) ([facility]) 06/13/2024 Acute kidney injury superimposed on CKD ([facility]) ([facility]) 07/03/2024 At risk for obstructive sleep apnea 05/31/2024 o/p sleep study recommended during admission CHF (congestive heart failure) ([facility]) CKD (chronic kidney disease) HFrEF (heart failure with reduced ejection fraction) ([facility]) 04/28/2024 History of left bundle branch block [...] Mobile Relation: Sister Nicole Cross [facility] Cosigned by THOMAS Carlos CNP at 07/28/2024 2:35 PM EST [facility] [id number] NoteReferral received from CHF coordinator to please follow patient for transitional program to reinforce CHF education and need for follow up. Will monitor patient for discharge home and make outreaches to patient at that time.[facility] [facility]* Nurse Navigation Note - Dia Gaitan RN - 07/26/2024 10:20 AM EST 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 Pt admitted with acute chronic [...] screenings): - [place]. request sent to the [employer] Supervisor Management team to complete serial telephone outreaches to pt with a focus on reinforcing all HF education and importance of HF GDMT and follow up compliance. - Pt with history of refusing transfer from [facility] to [facility] while hospitalized. Recommend confirming pt is agreeable to follow up with [facility]. If unable or pt does not wish to come to [facility], recommend continued follow up at [facility]. Heart Failure Accreditation Quality Metrics All Clinical Practice Guidelines and references available on the [facility] Heart Failure resource page (Resources --> [facility] --> Heart Failure) Established Bun Panner: Dr. Zhang/Yulissa Ulloa NP Follow up scheduled [...] CKD3 and hyperkalemia (Treatment pathway available on [facility] resource [facility]) LUCRECIA/ARB/ARNI: No (HD Entresto BID on hold) BB: Yes, carvedilol 25mg BID MRA: No SGLT2-I: No Diuretic: Yes- 80mg IV lasix BID (40gm PO lasix daily FURNACE COMBUSTION ANALYST) Hydral/ISDN: N/A ENGINE DYNAMOMETER TESTER-D Appropriateness Screen- N/A- Noncompliant with Lifevest and GDMT Cardiac Rehab - Referral could be considered for HFrEF Heart Failure Triggers for Consult to Palliative Care- appropriately following [facility] [id number] Note* Nurse Navigation Note - Dia Gaitan RN - 07/26/2024 10:20 AM EST 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 Pt admitted with acute chronic [...] screenings): - [place]. request sent to the [employer] Supervisor Management team to complete serial telephone outreaches to pt with a focus on reinforcing all HF education and importance of HF GDMT and follow up compliance. - Pt with history of refusing transfer from [facility] to [facility] while hospitalized. Recommend confirming pt is agreeable to follow up with [facility]. If unable or pt does not wish to come to [facility], recommend continued follow up at [facility]. Heart Failure Accreditation Quality Metrics All Clinical Practice Guidelines and references available on the [facility] Heart Failure resource page (Resources --> [facility] --> Heart Failure) Established Bun Panner: Dr. Zhang/Yulissa Ulloa NP Follow up scheduled [...] CKD3 and hyperkalemia (Treatment pathway available on [employer] Heart Failure resource page) LUCRECIA/ARB/ARNI: No (HD Entresto BID on hold) BB: Yes, carvedilol 25mg BID MRA: No SGLT2-I: No Diuretic: Yes- 80mg IV lasix BID (40gm PO lasix daily FURNACE COMBUSTION ANALYST) Hydral/ISDN: N/A ENGINE DYNAMOMETER TESTER-D Appropriateness Screen- N/A- Noncompliant with Lifevest and GDMT Cardiac Rehab - Referral could be considered for HFrEF Heart Failure Triggers for Consult to Palliative Care- appropriately following [facility] [id number] Hospital Discharge instructions* Discharge Instructions* Dia Gaitan RN - 07/26/2024 9:55 AM EST My Heart Failure Action Plan Use the below chart as a guide for daily symptom monitoring after you obtain your morning weight. My Bun Panner: You will be new to [facility]'s Heart Failure Clinic on [facility] Dr[address] Sergei Astudillo [address] [place] [address] [address] [place] [address] Once established with the heart failure clinic, you will have 24/7 provider access by calling the office, same [...] 5 pounds in a week Call your Bun Panner!! My Diet Goal: General diet recommendations for [...] call Dia Gaitan Heart Failure Navigator at [phone] (Mon-Fri 8AM-4PM) Do not call Dia's number [...] Please call customer service for you [employer] [place] [employer] to help establish a Primary Care Physician. * Attachments The following attachments cannot be sent through Care Everywhere. * Controlling Your Blood Pressure Through Lifestyle (Lithuanian) documented in this [facility]01-27-2025 NoteCardiology and attending made aware that patient refuses metolazone this AM. Education by this nurse ineffective.[facility]01-27-2025 Nurse Note * Raj Chilel RN - 07/26/2024 9:26 AM EST Cardiology and attending made aware that patient refuses metolazone this AM. Education by this nurse ineffective. [facility] [id number] Plan of care note* Care Plan - [...] Goal: Nutritional status is improving Outcome: Progressing [facility] [id number] Nurse Note* Tamiko Live RN - 07/26/2024 7:41 AM EST Patient refusing to let this nurse draw morning labs. Educated the patient on the importance of this process during his hospital stay to monitor his status. The only way he will allow blood draw is with US. Request made to [employer] VAULT CUSTODIAN nurse. [facility] [id number] Nurse Note* Osiris Huber RN - 07/26/2024 5:19 AM EST Attempted to draw lab but patient refused at this time.informed the provider. [facility] [id number] Plan of care note* Care Plan - Osiris Huber RN - 07/26/2024 3:54 AM EST Problem: Pain - Adult Goal: Verbalizes/displays adequate comfort level or baseline comfort level Outcome: Progressing Problem: Safety - Adult Goal: Free from fall injury Outcome: Progressing Problem: Chronic Conditions and Co-morbidities Goal: Patient's chronic conditions and co-morbidity symptoms are monitored and maintained or improved Outcome: Progressing [facility] [id number] Consult note* Chuyita Holloway MD - 07/25/2024 [...] encouraged patient to fill HCPOA document, consulted 7th grade social studies teacher for assistance - discussed goals, discussed patient's EF of 20 %, his medical compliance - discussed CPR, Intubation, Vent - patient stated that he feels fine, he wants everything done for him including CPR, intubation, Vent - Code status remains Full Code - will request palliative gameroom technician for support - discussed with Bun Panner Dr. 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 [place] Symptom Assessment Score [place] Score Pain Score (if non-verbal, add .FLACC [...] HFrEF (heart failure with reduced ejection fraction) ([facility]) 06/13/2024 Acute kidney injury superimposed on CKD ([facility]) ([facility]) 07/03/2024 At risk for obstructive sleep apnea 05/31/2024 o/p sleep study recommended during admission CHF (congestive heart failure) ([facility]) CKD (chronic kidney disease) HFrEF (heart failure with reduced ejection fraction) ([facility]) 04/28/2024 History of left bundle branch block (LBBB) 06/19/2024 Hypercholesteremia Hypertension Noncompliance 06/19/2024 NSTEMI (non-ST elevated myocardial infarction) ([facility]) 07/11/2024 Pulmonary vascular congestion 04/28/2024 Sinus tachycardia 06/19/2024 Past Surgical History: Procedure Laterality Date CARDIAC CATHETERIZATION N/A 06/17/2024 Performed by Akilah Diaz MD at [facility] Cardiac Supervisor Dry Cleaning Family History Problem Relation Name Age of [...] Transition Note Initiated: yes Chuyita Holloway MD [id number] Nurse Note* Osiris Huber RN - 07/25/2024 5:00 AM EST Attempted to draw lab but patient is refusing to draw lab.Informed the doctor. [id number] Plan of care note* Care Plan - [...] symptoms are monitored and maintained or improved 07/24/20241725 by Slime Lange RN Outcome: Progressing 07/24/2024 1458 by Slime Lange RN Outcome: Progressing Problem: Knowledge Deficit Goal: Patient/family/caregiver demonstrates understanding of disease process, treatment plan, medications, and discharge instructions 07/24/20241725 by Slime Lange RN Outcome: Progressing 07/24/2024 1458 by Slime Lange RN Outcome: Progressing Problem: Hemodynamic Status Goal: Patient's vitals signs are stable 07/24/20241725 by Slime Lange RN Outcome: Progressing 07/24/2024 1458 by Slime Lange RN Outcome: Progressing Problem: Excessive Fluid Volume Goal: Fluid and electrolyte balance are achieved/maintained 07/24/2024 172 by Slime Lange RN Outcome: Progressing 07/24/2024 1458 by Slime Lange RN Outcome: Progressing Problem: Inadequate Gas Exchange Goal: Patient is adequately oxygenated and ventilation is improved 07/24/20241725 by Slime Lange RN Outcome: Progressing 07/24/2024 1458 by Slime Lange RN Outcome: Progressing Goal: Nutritional status is improving 07/24/20241725 by Slime Lange RN Outcome: Progressing 07/24/2024 145 by Slime Lange RN Outcome: Progressing Problem: Activity Intolerance/Impaired Mobility Goal: Mobility/activity is maintained at optimum level for patient 07/24/2024 1726 by Slime Lange RN Outcome: Progressing 07/24/2024 1458 by Slime Lange RN Outcome: Progressing Problem: Nutrition Goal: Nutritional status is improving 07/24/2024 1726 by Slime Lange RN Outcome: Progressing 07/24/2024 1458 by Slime Lange RN Outcome: Progressing [facility] [id number] Plan of care note* Care Plan - [...] Goal: Nutritional status is improving Outcome: Progressing [facility] [id number] Consult note* Angel Luis Lassiter MD - 07/24/2024 11:54 AM ESTAssociated Order(s): IP CONSULT TO CARDIOLOGY [facility] [place] Consult Note Reason for Consult/Chief Complaint: HF Established hydraulic corrugating machine operator: Leatha/Adv HF specialist History of Present Illness: Carlo Medina is a 44 y.o. male nonischemic cardiomyopathy with severe biventricular failure, lastEF measured 20% per transthoracic echo June 15, 2024. Hx of mult adm due to poor compliance and poor health literacy. He has had extended and multiple discussions about medical Rx. Recently noted to have increased wt as outpt at [facility] and K+5.8 was subsequently found. Prior to that: Was Dc'd 07/05 from [facility]. That note says they tried to keep [...] readm for HF shortly thereafter 07/11 to [facility]. Was Dc'd 07/16 from [facility] w/lasix 20 PRN daily for wt gain [...] hospital. Does not want to go back [facility] hospital Seems willing to do [facility] HF clinic when I told him it [...] jerome: coreg 25 bid LUCRECIA/ARB/ARNI: Restart Entresto ; close f/u of renal fxn/K+ level MRA: [...] Anticoagulation: OAC for DVT (mgt per primary) ICD/ENGINE DYNAMOMETER TESTER: Candidate for ENGINE DYNAMOMETER TESTER-D if LBBB became chronic but would need to agree to [facility] evaluation as outpt Last CPET: none Last [...] strongly recommended for Adv HF mgt at [facility] HF clinic; this is supported by his [facility] hydraulic corrugating machine operator Dr. Zhang. Very high risk for readmission. Appropriate for cardiac rehab if he would attend Noncompliance likely due to multiple factors not all known at this time (medical literacy and social support are issues) contribute to this risk and his poor prognosis longterm. There may be an opportunity for improved [...] be managed here would favor txf to [facility] but pt would likely refuse as he [...] Luis Lassiter MD DATE of SERVICE: 07/24/2024 [facility] [id number] History and physical note* Rafa Samuel MD [...] hypertension, noncompliance behavior, history of non-ST elevation [place] who presented to the emergency room with [...] HFrEF (heart failure with reduced ejection fraction) ([facility]) 06/13/2024 Acute kidney injury superimposed on CKD ([facility]) ([facility]) 07/03/2024 At risk for obstructive sleep apnea 05/31/2024 o/p sleep study recommended during admission CHF (congestive heart failure) ([facility]) CKD (chronic kidney disease) HFrEF (heart failure with reduced ejection fraction) ([facility]) 04/28/2024 History of left bundle branch block (LBBB) 06/19/2024 Hypercholesteremia Hypertension Noncompliance 06/19/2024 NSTEMI (non-ST elevated myocardial infarction) ([facility]) 07/11/2024 Pulmonary vascular congestion 04/28/2024 Sinus tachycardia 06/19/2024 Past Surgical History: Past Surgical History: Procedure Laterality Date CARDIAC CATHETERIZATION N/A 06/17/2024 Performed by Akilah Diaz MD at [facility] Cardiac Supervisor Dry Cleaning Social History: Social History Socioeconomic History Marital [...] 0 min Stress: Stress Concern Present (07/12/2024) [place] [employer] [facility] [employer] [facility] - Occupational Stress Questionnaire Feeling of Stress : To some extent Social Connections: Moderately Integrated (07/12/2024) Social Connection and Isolation Panel [NHANES] Frequency of Communication with Friends and Family: Twice a week Frequency of Social Gatherings with Friends and Family: Once a week Attends Caodaism Services: 1 to 4 times per year [...] pedal edema bilaterally DATA: CBC: Recent Labs 07/23/242126 WBC 8.8 RBC 4.55 HGB 15.2 HCT 46.5 MCV 102.2* RDW 13.8 PLT 255 BMP: Recent Labs 07/21/24 1025 07/23/247 NA -- 140 K -- 4.6 CL [...] - DO NOT do CPR, intubation] [_] [DNR-MANIFEST CLERK - Comfort care only] [_] DNR form [...] Rafa Samuel MD Division of Hospitalist Medicine [facility] [employer] Phone: [phone] 389-941301-24-2025 [facility]01-24-2025 History and physical note* Rafa Samuel MD [...] hypertension, noncompliance behavior, history of non-ST elevation [place] who presented to the emergency room with [...] HFrEF (heart failure with reduced ejection fraction) ([facility]) 06/13/2024 Acute kidney injury superimposed on CKD ([facility]) ([facility]) 07/03/2024 At risk for obstructive sleep apnea 05/31/2024 o/p sleep study recommended during admission CHF (congestive heart failure) ([facility]) CKD (chronic kidney disease) HFrEF (heart failure with reduced ejection fraction) ([facility]) 04/28/2024 History of left bundle branch block (LBBB) 06/19/2024 Hypercholesteremia Hypertension Noncompliance 06/19/2024 NSTEMI (non-ST elevated myocardial infarction) ([facility]) 07/11/2024 Pulmonary vascular congestion 04/28/2024 Sinus tachycardia 06/19/2024 Past Surgical History: Past Surgical History: Procedure Laterality Date CARDIAC CATHETERIZATION N/A 06/17/2024 Performed by Akilah Diaz MD at [facility] Cardiac Supervisor Dry Cleaning Social History: Social History Socioeconomic History Marital [...] 0 min Stress: Stress Concern Present (07/12/2024) [place] [employer] [facility] [employer] - Occupational Stress Questionnaire Feeling of Stress : To some extent Social Connections: Moderately Integrated (07/12/2024) Social Connection and Isolation Panel [NHANES] Frequency of Communication with Friends and Family: Twice a week Frequency of Social Gatherings with Friends and Family: Once a week Attends Caodaism Services: 1 to 4 times per year [...] pedal edema bilaterally DATA: CBC: Recent Labs 07/23/242126 WBC 8.8 RBC 4.55 HGB 15.2 HCT 46.5 MCV 102.2* RDW 13.8 PLT 255 BMP: Recent Labs 07/21/24 1025 07/23/247 NA -- 140 K -- 4.6 CL [...] drug monitoring : # Drug name : Eliqupaco # Route administered : Oral # Method [...] - DO NOT do CPR, intubation] [_] [DNR-MANIFEST CLERK - Comfort care only] [_] DNR form [...] Rafa Samuel MD Division of Hospitalist Medicine [facility] documented in this encounterSFisher-Titus Medical [id number] Emergency department Note* Shabana Colbert RN - 07/23/2024 8:04 PM EST field service technician poultry called. [facility] [id number] Emergency department Note* Shabana Colbert RN - 07/23/2024 8:04 PM EST field service technician poultry called. * Bertha Pichardo DO - 07/23/2024 7:57 PM EST Emergency Department Encounter [facility] ED Patient: Carlo Medina : 1980 Date [...] 07/23/2024 7:57 PM EST Emergency Department Encounter [facility] ED Patient: Carlo Medina : 1980 Date [...] states that he hadlabs drawn at his hydraulic corrugating machine operator the other day, and was told to [...] He had a call today from his hydraulic corrugating machine operator that his kidney labs were elevated, states [...] HFrEF (heart failure with reduced ejection fraction) ([facility]) 06/13/2024 Acute kidney injury superimposed on CKD ([facility]) ([facility]) 07/03/2024 At risk for obstructive sleep apnea 05/31/2024 o/p sleep study recommended during admission CHF (congestive heart failure) ([facility]) CKD (chronic kidney disease) HFrEF (heart failure with reduced ejection fraction) ([facility]) 04/28/2024 History of left bundle branch block (LBBB) 06/19/2024 Hypercholesteremia Hypertension Noncompliance 06/19/2024 NSTEMI (non-ST elevated myocardial infarction) ([facility]) 07/11/2024 Pulmonary vascular congestion 04/28/2024 Sinus tachycardia 06/19/2024 Past Surgical History: Procedure Laterality Date CARDIAC CATHETERIZATION N/A 06/17/2024 Performed by Akilah Diaz MD at [facility] Cardiac Supervisor Dry Cleaning Social History Socioeconomic History Marital status: Single [...] 0 min Stress: Stress Concern Present (07/12/2024) [place] [employer] [facility] [employer] - Occupational Stress Questionnaire Feeling of Stress : To some extent Social Connections: Moderately Integrated (07/12/2024) Social Connection and Isolation Panel [NHANES] Frequency of Communication with Friends and Family: Twice a week Frequency of Social Gatherings with Friends and Family: Once a week Attends Caodaism Services: 1 to 4 times per year [...] Department Physician in the absence of a hydraulic corrugating machine operator. Please see Epiphany for interpretation of EKG. [...] from hospitalization for diuresis. Was admitted to [facility] in stable condition Carlo Medina and [...] reports hx of CHF. [facility]01-24-2025 Emergency department Triage note* Shabana Colbert RN - 07/23/2024 7:57 PM EST Pt arrived through triage with c/o SOB and abdominal pain. Pt also c/o chest burning sensation whenwalking. Pt states his PCP said his kidney levels were elevated and recommended coming to the ER. Pt reports nausea and having increased swelling in his legs. Pt reports hx of CHF. [facility] [id number] Physician Emergency department Note* Bertha Pichardo DO - 07/23/2024 7:57 PM EST Emergency Department Encounter [facility] ED Patient: Carlo Medina : 1980 Date [...] [employer] Bertha Pichardo DO 07/23/242203 [facility] [id number] Physician Emergency department Note* Dayna Alvarenga PA-C - 07/23/2024 7:57 PM EST Emergency Department Encounter [facility] ED Patient: Carlo Medina : 1980 Date [...] states that he hadlabs drawn at his hydraulic corrugating machine operator the other day, and was told to [...] He had a call today from his hydraulic corrugating machine operator that his kidney labs were elevated, states [...] HFrEF (heart failure with reduced ejection fraction) ([facility]) 06/13/2024 Acute kidney injury superimposed on CKD ([facility]) ([facility]) 07/03/2024 At risk for obstructive sleep apnea 05/31/2024 o/p sleep study recommended during admission CHF (congestive heart failure) ([facility]) CKD (chronic kidney disease) HFrEF (heart failure with reduced ejection fraction) ([facility]) 04/28/2024 History of left bundle branch block (LBBB) 06/19/2024 Hypercholesteremia Hypertension Noncompliance 06/19/2024 NSTEMI (non-ST elevated myocardial infarction) ([facility]) 07/11/2024 Pulmonary vascular congestion 04/28/2024 Sinus tachycardia 06/19/2024 Past Surgical History: Procedure Laterality Date CARDIAC CATHETERIZATION N/A 06/17/2024 Performed by Akilah Diaz MD at [facility] Cardiac Supervisor Dry Cleaning Social History Socioeconomic History Marital status: Single [...] 0 min Stress: Stress Concern Present (07/12/2024) [place] [employer] - Occupational Stress Questionnaire Feeling of Stress : To some extent Social Connections: Moderately Integrated (07/12/2024) Social Connection and Isolation Panel [NHANES] Frequency of Communication with Friends and Family: Twice a week Frequency of Social Gatherings with Friends and Family: Once a week Attends Caodaism Services: 1 to 4 times per year [...] (with meals). CHOLECALCIFEROL (VITAMIN D-3) 50 MCG (1999 UT) TABLET Take 2 tablets (4,000 Units) [...] Department Physician in the absence of a hydraulic corrugating machine operator. Please see Epiphany for interpretation of EKG. [...] Pichardo DO at 07/23/2024 10:40 PM EST [facility] [id number] Telephone encounter Note* Telephone Encounter - THOMAS Mi CNP - 07/23/2024 12:20 PM EST Pt is now scheduled to be seen in the [facility] CHF clinic next week 07/28/2024 at 9:30 am. I left another message asking that he hold Entresto until seen in the CHF clinic and continue lasix. [facility] [id number] Miscellaneous Notes* Telephone Encounter - THOMAS iM CNP - 07/23/2024 12:20 PM EST Pt is now scheduled to be seen in the [facility] CHF clinic next week 07/28/2024 at 9:30 [...] treated in the heart failure clinic at [facility]. It [place], due to ongoing complexity of his care. Would recommend an expedient follow-up scheduled at the heart failure clinic at [facility], if unable to schedule, if patient calls back and is feeling poorly, would recommend he proceed to the emergency room at [facility] for expedient evaluation and treatment. documented [facility]01-24-2025 Telephone encounter Note* Telephone Encounter - Sarah Pierre - 07/23/2024 10:17 AM EST LM for pt that they are seeing Dr Astudillo on 07/28/2024 @ 9:30a [facility] [id number] Miscellaneous Notes* Telephone Encounter - Sarah Pierre - 07/23/2024 10:17 AM EST LM for pt that they are seeing Dr Astudillo on 07/28/2024 @ 9:30a * Telephone Encounter - Kaitlin Parker - 07/23/2024 10:01 AM EST Patient will need scheduled for a Follow up with heart failure clinic [facility] per Yulissa. Please call patient to schedule. documented in this [facility]01-24-2025 Telephone encounter Note* Telephone Encounter - Kaitlin Parker - 07/23/2024 10:01 AM EST Patient will need scheduled for a Follow up with heart failure clinic [facility] per Yulissa. Please call patient to schedule. [facility] [id number] Telephone encounter Note* Telephone Encounter - THOMAS [...] treated in the heart failure clinic at [facility]. It is [place], due to ongoing complexity of his care. Would recommend an expedient follow-up scheduled at the heart failure clinic at [facility], if unable to schedule, if patient calls back and is feeling poorly, would recommend he proceed to the emergency room at [facility] for expedient evaluation and treatment. [facility] [id number] History of Present illness Narrative* THOMAS Mi CNP - 07/21/2024 9:30 AM EST Images from the original note were not included. [facility] Cardiology Office Note DATE of SERVICE: 07/21/24 [...] for volume overload, he was admitted to [facility] 07/11/2024-07/16/2024. He was treated for volume overload. [...] 06/17/2024 Performed by Akilah Diaz MD at [facility] Cardiac Supervisor Dry Cleaning Family History Family History Problem Relation Name [...] 1. Heart failure reduced EF, nonischemic cardiomyopathy, [place] Heart Association functional class III, stage C-appears [...] week. Morgan Ulloa APRN/VIKKI documented in this [facility]01-21-2025 Telephone encounter Note* Telephone Encounter - Kaitlin Gonzalez LPN - 07/20/2024 10:02 AM EST Unable to contact patient X2 [id number] Miscellaneous Notes* Telephone Encounter - Kaitlin Gonzalez LPN - 07/20/2024 10:02 AM EST Unable to contact patient X2 * Telephone Encounter - Kaitlin Gonzalez LPN - 07/19/2024 10:46 AM EST S: Patient admitted to: [facility] 07/11/24 B: Discharged on : 07/16/24 A: Hospital follow up call initiated to discuss any medication changes, follow up appointments and discharge instructions: NSTEMI (non-ST elevated myocardial infarction) R: No contact x 1 at : [phone] documented in this [facility]01-20-2025 Telephone encounter Note* Telephone Encounter - Kaitlin Gonzalez LPN - 07/19/2024 10:46 AM EST S: Patient admitted to: [facility] 07/11/24 B: Discharged on : 07/16/24 A: Hospital follow up call initiated to discuss any medication changes, follow up appointments and discharge instructions: NSTEMI (non-ST elevated myocardial infarction) R: No contact x 1 at : [phone] [id number] Telephone encounter Note* Telephone Encounter - THOMAS Valencia CNP - 07/16/2024 5:04 PM EST Late chart note. Patient already discharged from the hospital. I have seen him throughout his stay at [facility] this week. It has been a challenge [...] times throughout his stay to re-educate him. [employer] Phone: [phone] 144-852301-17-2025 Miscellaneous Notes* Telephone Encounter - THOMAS Valencia CNP - 07/16/2024 5:04 PM EST Late chart note. Patient already discharged from the hospital. I have seen him throughout his stay at [facility] this week. It has been a challenge [...] stay to re-educate him. documented in this [facility]01-17-2025 [facility] 07-16-2024 Hospital course Narrative* THOMAS Larson CNP - 07/16/2024 2:12 PM EST Hospitalist [...] of heart failure was recently discharged from [facility] after presenting with similar symptoms. The patient was initiallytreated in the emergency room for a non-STEMI AZ secondary to elevated troponins and was placed [...] having symptomatic VT and recommended transfer to [facility] for EP evaluation and ICD. Pt is [...] with sustained BT, cardiology recommnending transfer to [facility] but patient refusing , optimized on medications [...] Course: Patient recommended to be transferred to [facility] for possible ICD placement after symptomatic runs [...] Sodium restriction: Low Sodium (2 gm) 07/12/24 0457 Activity: as tolerated Recommended Outpatient Tests: Disposition: [...] Your Medications These medications were sent to [facility] [address] [place] [address] Hours: Friday to Friday 10 am to 6 pm apixaban 5 MG tablet carvedilol 25 MG tablet furosemide 20 MG tablet sacubitril-valsartan 97-103 MG tablet spironolactone 25 MG tablet Recommended Follow-up: THOMAS Mi CNP [address] [place] [address], [address] [facility] [address] Follow up on 07/23/2024 cardiology follow up @ 2:30. Please get your lab work completed the day prior to this visit. Complexity of Follow up: [] Moderate Complexity: follow up within 7-14 calendar days (61329) [x] Severe Complexity: follow up within 7 calendar days (03567) Follow up Testing, Pending results or Referrals [...] THOMAS Castillo CNP Division of Hospitalist Medicine [facility] 07/16/2024, 2:12 PM Cosigned by Shelli Luis MD at 07/16/2024 5:12 PM EST documented in this [facility]01-17-2025 History of Present illness Narrative* Luma Fulton Benita, THOMAS Xiao CNP - 07/16/2024 8:12 AM EST Cardiology [...] at 07/16/2024 0838 Last data filed at 07/15/2024 2129 Gross per 24 hour Intake 200 ml [...] suppress the extra beats/arrhythmia. -He works at [employer]. Advised to check into needing FMLA forms [...] while inpatient and +BS all 4 quads. Figueroa sign off. Please call if further assistance is needed. Follow up with Morgan Ulloa CNP 07/23/2024 @ 2:30 THOMAS Valencia CNP * Lilibeth Huber, CERTIFIED RECREATIONAL THERAPIST - OFFICE CORRESPONDENT - 07/15/2024 9:35 AM EST Hospitalist Progress [...] of heart failure was recently discharged from [facility] after presenting with similar symptoms. The patient was initiallytreated in the emergency room for a non-STEMI AZ secondary to elevated troponins and was placed [...] having symptomatic VT and recommended transfer to [facility] for EP evaluation and ICD. Pt is reluctant to proceed and feelswe are rushing him. Pt brought up life vest and explained that would only be a temporary treatment.PT was made aware of his high risk for SCD. Interval History: No overnight issues. Patient has decided he will go home with a life vest. He refuses transfer to [facility] see EP for ICD placement. Cardiology has [...] 13.7 PLT 232 242 BMP: Recent Labs 07/13/24 0252 07/14/24 0451 07/15/24 0206 NA 135* 137 134* [...] with sustained BT, cardiology recommnending transfer to [facility] but patient refusing Elevated troponin - Type [...] VT but refuses to be transferred to [facility] - am labs, replace lytes prn - [...] Significant Other THOMAS Castillo CNP [facility] * THOMAS Valencia CNP - 07/15/2024 9:34 [...] Ulloa CNP 07/23/2024 @ 2:30 THOMAS Valencia CNP, FACC, FASE * Shannan Lima MD - [...] Mg is 2. -I recommend transfer to [facility] for ICD evaluation. I discussed/reviewed telemetry rhythm with EP colleague and we agree with further evaluation/ICD consideration. I explained and discussed findings andrecommendation with Mr. Medina at length. He informed me that he favors not to go to [facility] and he is reluctant about a defibrillator. [...] FACC, FASE * Kelly Carey APRN - VIKKI - 07/14/2024 9:11 AM EST Hospitalist Progress [...] of heart failure was recently discharged from [facility] after presenting with similar symptoms. The patient was initiallytreated in the emergency room for a non-STEMI AZ secondary to elevated troponins and was placed [...] having symptomatic VT and recommended transfer to [facility] for EP evaluation and ICD. Pt is [...] PLT 270 246 232 BMP: Recent Labs 07/12/2437 07/13/24 0252 07/14/24 0451 NA 139 135* 137 K 4.5 4.1 4.2 CL 107 105 104 CO2 20* 21* 23 BUN 31* 35* 33* CREATININE 1.79* 1.90* 1.81* GLUCOSE 104* 126* 115* CALCIUM 8.6 8.1* 8.3* ANIONGAP 12 9 10 LIVER PROFILE: Recent Labs 07/11/24202407/12/24 0637 07/14/24 0451 AST 75* 63* 50* ALT [...] they discussed with the patient transferring to [facility] for advanced heart failure reevaluation and EP [...] Medina Mobile Relation: Sister Secondary Emergency Contact: KurtKaitlin Mobile Relation: Significant Other THOMAS Edward CNP Division of Hospitalist Medicine [facility] Comment: Please note this report has been [...] of heart failure was recently discharged from [facility] after presenting with similar symptoms. The patient was initiallytreated in the emergency room for a non-STEMI AZ secondary to elevated troponins and was placed [...] they discussed with the patient transferring to [facility] for advanced heart failure reevaluation but patient [...] Medina Mobile Relation: Sister Secondary Emergency Contact: KurtKaitlin Mobile Relation: Significant Other THOMAS Edward CNP Division of Hospitalist Medicine Acute care [facility] Comment: Please note this report has been [...] be monitored and followed by the diet licensed chemical spray technician. * THOMAS Cruz CNP - 07/12/2024 2:12 PM EST Hospitalist Progress [...] of heart failure was recently discharged from [facility] after presenting with similar symptoms. The patient was initiallytreated in the emergency room for a non-STEMI AZ secondary to elevated troponins and was placed [...] they discussed with the patient transferring to [facility] for advanced heart failure reevaluation but patient [...] CNP Division of Hospitalist Medicine Acute care [facility] Comment: Please note this report has been produced using speech recognition software and may contain errors related to that system including errors in grammar, punctuation, and spelling, as well as words and phrases that may be inappropriate. If there is any questions or concerns please feel free to contact the dictating provider for clarification documented in this [facility]01-16-2025 Plan of care note* Care Plan [...] Goal: Nutritional status is improving Outcome: Progressing [facility] [id number] Miscellaneous Notes* Care Plan - Sue Schuler [...] following. Pt has refusing to go to [facility] for advanced heart failure reevaluation. Refused life vest with last admission, and is reluctant about a defibrillator. Discharge plan will be home when medically ready. sales and business development manager to follow and assist as needed. [...] recommend medication as well as referral to [facility] for defibrillator placement. At first he declined [...] Acosta RN - 07/14/2024 5:08 AM EST TRUST VAULT CUSTODIAN called for pt in ventricular tachycardia in [...] discharge instructions Outcome: Progressing documented in this [facility]01[facility]16-2025 Plan of care note* Care Plan [...] Goal: Nutritional status is improving Outcome: Progressing [facility] [id number] Plan of care note* Care Plan - [...] Goal: Nutritional status is improving Outcome: Progressing [facility] [id number] Note* Care Coordination - Narcisa Tavarez RN - 07/14/2024 4:27 PM EST Pt admitted to [facility] for NSTEMI. Chart reviewed. Cardiology following. Pt has refusing to go to [facility] for advanced heart failure reevaluation. Refused life vest with last admission, and is reluctant about a defibrillator. Discharge plan will be home when medically ready. sales and business development manager to follow and assist as needed. [facility] [id number] Note* Care Coordination - Narcisa Tavarez RN - 07/14/2024 4:27 PM EST Pt admitted to PCU for NSTEMI. Chart reviewed. Cardiology following. Pt has refusing to go to [facility] for advanced heart failure reevaluation. Refused life vest with last admission, and is reluctant about a defibrillator. Discharge plan will be home when medically ready. sales and business development manager to follow and assist as needed. [facility] [id number] NoteAtrial tachycardia Abnormal R-wave progression, late transition Probable LVH with secondary repol abnrm Prolonged QT interval Electronically Signed On 07-14-2024 09:33:32 EST by Radha [facility]AT[facility] 07-14-2024 NoteAtrial tachycardia Abnormal R-wave progression, late transition Probable LVH with secondary repol abnrm Prolonged QT interval Electronically Signed On 07-14-2024 09:33:32 EST by Radha MyStarAutographchristine Go [facility] 07-14-2024 NoteIMPRESSION: Atrial tachycardia Abnormal R-wave progression, late transition Probable LVH with secondary repol abnrm Prolonged QT interval Electronically Signed On 07-14-2024 09:33:32 EST by [facility]01-15-2025 Note* Significant Event - Sherri Jeter MD [...] recommend medication as well as referral to [facility] for defibrillator placement. At first he declined [...] his LFTs were elevated in the past [facility] [employer] Work Phone: [phone]) 942-869501-15-2025 Note* Significant Event - Sherri Jeter MD [...] recommend medication as well as referral to [facility] for defibrillator placement. At first he declined [...] his LFTs were elevated in the past [employer] Work Phone: [phone] Note* Rapid Response Note - Inga Acosta RN - 07/14/2024 5:08 AM EST TRUST VAULT CUSTODIAN called for pt in ventricular tachycardia in [...] Continue monitoring at current level of care [employer]01-15-2025 Note* Rapid Response Note - Inga Acosta RN - 07/14/2024 5:08 AM EST TRUST VAULT CUSTODIAN called for pt in ventricular tachycardia in [...] Continue monitoring at current level of care [id number] Plan of care note* Care Plan - Leatha Lancaster RN - 07/14/2024 4:06 AM EST Problem: Knowledge Deficit Goal: Patient/family/caregiver demonstrates understanding of disease process, treatment plan, medications, and discharge instructions Outcome: Not Progressing Problem: Knowledge Deficit Goal: Patient/family/caregiver demonstrates understanding of disease process, treatment plan, medications, and discharge instructions Outcome: Not Progressing [id number] Nurse Note* Leatha Lancaster RN - 07/13/2024 10:38 PM EST 11 beat wide complex beats-denied symptoms to this RN. Dr Jeter spoke at length to pt re: health risks with refusing intervention. [id number] Nurse Note* Leatha Lancaster RN - 07/13/2024 10:38 PM EST 11 beat wide complex beats-denied symptoms to this RN. Dr Jeter spoke at length to pt re: health risks with refusing intervention. * Kira Santos RN - 07/12/2024 12:44 PM EST Patient does not want to take his sodium bicarb until 2pm. documented in this [facility]01-14-2025 Note* Significant Event - Sherri Jeter MD - 07/13/2024 9:55 PM EST He developed sinus tach on tele EKG obtained 5mg of lopressor ordered He then spontaneously went back to normal rhythm before being given. He did have fluttering in his chest, all symptoms now resolved EKG of sinus tach is in epic [facility] [id number] Note* Significant Event - Sherri Jeter MD - 07/13/2024 9:55 PM EST He developed sinus tach on tele EKG obtained 5mg of lopressor ordered He then spontaneously went back to normal rhythm before being given. He did have fluttering in his chest, all symptoms now resolved EKG of sinus tach is in epic [facility] [id number] Hospital Discharge instructions* Discharge Instructions* Dia Gaitan RN - 07/13/2024 9:40 AM EST My Heart Failure Action Plan Use the below chart as a guide for daily symptom monitoring after you obtain your morning weight. My Bun Panner: [facility] [phone] My Diagnosis: Severe biventricular heart failure (both [...] 5 pounds in a week Call your Bun Panner!! My Diet Goal: General diet recommendations for [...] Everywhere. * Diastolic Heart Failure Discharge Instructions (Lithuanian) documented in this [facility]01-13-2025 Plan of care note* Care Plan [...] plan, medications, and discharge instructions Outcome: Progressing [facility] [id number] Nurse Note* Kira Santos RN - 07/12/2024 12:44 PM EST Patient does not want to take his sodium bicarb until 2pm. [facility] [id number] Consult note* Shannan Lima MD - 07/12/2024 9:37 AM EST Associated Order(s): IP CONSULT TO CARDIOLOGY [facility] Consult Note Reason for Consult/Chief Complaint: Heart Failure Consulting MD: Dr. Samuel History of Present Illness: Carlo Medina is a 44 y.o. male admitted for heart failure. He is known to have HFrEF secondary todilated-nonischemic cardiomyopathy (BiV failure, LVEF 20%, GLS <-9%, 2+ FMR), recently discharged from [facility] for ADHF (losartan 50/lasix 40 mg daily), [...] 06/17/2024 Performed by Akilah Diaz MD at [facility] Cardiac Supervisor Dry Cleaning Family History: Family History Problem Relation Name [...] 5 mg bid Discussed possible need to [facility] transfer for advanced HF re-evaluation, he does not want to be transferred to [facility] at this time and agrees with above plan. Shannan Lima MD, FAC, FASE DATE of SERVICE: 07/12/2024 [facility] [id number] Consult note* Shannan Lima MD - 07/12/2024 9:37 AM EST Associated Order(s): IP CONSULT TO CARDIOLOGY [facility] Consult Note Reason for Consult/Chief Complaint: Heart Failure Consulting MD: Dr. Samuel History of Present Illness: Carlo Medina is a 44 y.o. male admitted for heart failure. He is known to have HFrEF secondary todilated-nonischemic cardiomyopathy (BiV failure, LVEF 20%, GLS <-9%, 2+ FMR), recently discharged from [facility] for ADHF (losartan 50/lasix 40 mg daily), [...] 06/17/2024 Performed by Akilah Diaz MD at [facility] Cardiac Supervisor Dry Cleaning Family History: Family History Problem Relation Name [...] 5 mg bid Discussed possible need to [facility] transfer for advanced HF re-evaluation, he does not want to be transferred to [facility] at this time and agrees with above plan. Shannan Lima MD, FACC, FASE DATE of SERVICE: 07/12/2024 documented in this [facility]01-13-2025 Emergency department Note* Celestino Garay RN - 07/12/2024 1:13 AM EST APTT drawn by venipuncture, previous specimen also drawn by venipuncture [facility] [id number] Emergency department Note* Celestino Garay RN - 07/12/2024 1:13 AM EST APTT drawn by venipuncture, previous specimen also drawn by venipuncture * Yasmeen Petersen RN - 07/11/2024 7:22 PM EST TRUST VAULT CUSTODIAN RN called for USIV * Donaldo Kenny MD - 07/11/2024 5:20 PM EST Emergency Department Encounter [facility] ED Patient: Carlo Medina : 1980 Date of Evaluation: 07/11/2024 ED Supervising Physician: Rayna Kenny MD I independently examined and evaluated Carlo Medina. THIS IS MY SUPERVISORY AND SHARED VISIT NOTE: I personally saw the patient and made/approved the management plan and take responsibility for the patient management. In brief, Carlo eMdina is a 44 y.o. male that presents [...] [employer] Donaldo Kenny MD 07/11/242036 * Lorie Nguyen RN - 07/11/2024 5:20 PM EST Patient arrives to er with complaints of upper abd pain. States he was here last week and had to get diuretics, he had fluid retention. Endorses similar sx and increased weight. Pt weight Friday was 170lbs, today 174lbs. Denies any SOB documented [facility] this [facility]01-12-2025 History and physical note* Rafa Samuel MD - 07/11/2024 9:54 PM EST Attending History and Physical Admit Date: 07/11/2024 PCP: No primary care provider on file. CHIEF COMPLAINT: Shortness of breath Reason for Admission: Non-ST elevation AZ History Obtained From: patient HISTORY OF PRESENT [...] 06/17/2024 Performed by Akilah Diaz MD at [facility] Cardiac Supervisor Dry Cleaning Social History: Social History Socioeconomic History Marital [...] 10 min Stress: Stress Concern Present (07/04/2024) [place] [employer] - Occupational Stress Questionnaire Feeling of Stress : To some extent Social Connections: Unknown (07/04/2024) Social Connection and Isolation Panel [NHANES] Frequency of Communication with Friends and Family: Once a week Frequency of Social Gatherings with Friends and Family: Once a week Attends Ca[employer] Services: 1 to 4 times per year [...] weight-based heparin with concern for non-ST elevation AZ which will becontinued. Will hold off on [...] Extended Emergency Contact Information Primary Emergency Contact: Live OakCyndy wheelera Mobile Relation: Sister Secondary Emergency Contact: Kaitlin [...] - DO NOT do CPR, intubation] [_] [DNR-MANIFEST CLERK - Comfort care only] [_] DNR form [...] Rafa Samuel MD Division of Hospitalist Medicine [facility] [employer] Phone: [phone] [facility]01-12-2025 History and physical note* Rafa Samuel MD - 07/11/2024 9:54 PM EST Attending History and Physical Admit Date: 07/11/2024 PCP: No primary care provider on file. CHIEF COMPLAINT: Shortness of breath Reason for Admission: Non-ST elevation AZ History Obtained From: patient HISTORY OF PRESENT [...] He has been taking his medications regularly. Randall have prior history significant for heart failure [...] 06/17/2024 Performed by Akilah Diaz MD at [facility] Cardiac Supervisor Dry Cleaning Social History: Social History Socioeconomic History Marital [...] 10 min Stress: Stress Concern Present (07/04/2024) [place] [employer] - Occupational Stress Questionnaire Feeling of Stress : To some extent Social Connections: Unknown (07/04/2024) Social Connection and Isolation Panel [NHANES] Frequency of Communication with Friends and Family: Once a week Frequency of Social Gatherings with Friends and Family: Once a week Attends Caoda[employer] Services: 1 to 4 times per year [...] weight-based heparin with concern for non-ST elevation AZ which will becontinued. Will hold off on [...] - DO NOT do CPR, intubation] [_] [DNR-MANIFEST CLERK - Comfort care only] [_] DNR form [...] Rafa Samuel MD Division of Hospitalist Medicine [employer] documented [facility] this [facility]01[facility]12[facility] Emergency department Note* Yasmeen Petersen RN - 07/11/2024 7:22 PM EST TRUST VAULT CUSTODIAN RN called for USIV [facility] [id number] Emergency department Triage note* Lorie Nguyen RN - 07/11/2024 5:20 PM EST Patient arrives to er with complaints of upper abd pain. States he was here last week and had to get diuretics, he had fluid retention. Endorses similar sx and increased weight. Pt weight Friday was 170lbs, today 174lbs. Denies any SOB [facility] [id number] Physician Emergency department Note* Donaldo Kenny MD - 07/11/2024 5:20 PM EST Emergency Department Encounter [facility] ED Patient: Carlo Medina : 1980 Date [...] dictating provider for clarification.) Rayna Kenny MD [facility] [employer] Donaldo Kenny MD 07/11/242036 [facility] [employer] Work Phone: 1(579) 829-705601-08-2025 History of Present illness Narrative* Alex Zhang MD - 07/07/2024 1:00 PM EST [facility] Cardiology [facility] [place] [address] [facility] [address] Dept: [phone] Dept Visit type: Established : 1980 Chief [...] 06/17/2024 Performed by Akilah Diaz MD at [facility] Cardiac Supervisor Dry Cleaning Family History Family History Problem Relation Name [...] of DVT on apixaban. [facility] this [facility]01-06-20[facility] Nurse Note* Anshul Hadley RN - 07/05/2024 [...] RN in off unit, pt taken to oyster picker area, pt girlfriend present to take pt home, reviewed DC information again, verbalized understanding. VSS. No needs identified. [facility] [id number] Nurse Note* Anshul Hadley RN - 07/05/2024 [...] RN in off unit, pt taken to oyster picker area, pt girlfriend present to take pt home, reviewed DC information again, verbalized understanding. VSS. No needs identified. documented [facility] this [facility]01-06-2025 Note* Care Coordination - Stellafidelia Michel RN - 07/05/2024 10:54 AM EST Patient admitted to CTV ICU with SCHUYLER on CKD and heart failure. Chart reviewed. Patient from home, has health insurance but no PCP, but did follow up with cardiology after recent discharge. No discharge needs anticipated. [facility] CenterDaffpp01-32-5386 Note* Care Coordination - Stella Michel RN - 07/05/2024 10:54 AM EST Patient admitted to CTV ICU with SCHUYLER on CKD and heart failure. Chart reviewed. Patient from home, has health insurance but no PCP, but did follow up with cardiology after recent discharge. No discharge needs anticipated. [facility] [id number] Miscellaneous Notes* Care Coordination - Stella Michel RN - 07/05/2024 10:54 AM EST Patient admitted to CTV ICU with SCHUYLER on CKD and heart failure. Chart reviewed. Patient from home, has health insurance but no PCP, but did follow up with cardiology after recent discharge. No discharge needs anticipated. documented in this [facility]01-06-2025 [facility] 07-05-2024 Hospital course Narrative* Shun Craig MD - 07/05/2024 10:51 AM EST Images from the original note were not included. [facility] [place] [facility] CCU DISCHARGE SUMMARY Patient Name: Carlo Medina [...] HTN, DVT, and HLD that presented to [facility] on 07/03/2024 from outside facility ([facility] ED) due to shortness of breath. Pt reports around 0700 he awoke with shortness of breath and abd pain. States it felt as if hecould not take a deep breath. Pt notes this has occurred in the past and felt similar to when he was admitted to [facility] in 2023. At that time he was [...] times daily Notable Medication Changes & Reasoning: [place] Simplified Medication Regimen to help with Patient [...] Center 07/07/2024 1:00 PM Alex Zhang MD [facility] 08/30/2024 11:00 AM [facility] ECHO 1 SB NON-INVA SB Imaging 09/10/2024 11:00 AM Morgan Ulloa APRN - OFFICE CORRESPONDENT [facility] SB MINDA [facility] Cosigned by Ab Coppola MD [...] Coppola MD, PhD Advanced Heart Failure Cardiology [facility]. [facility] [place] 4:35 PM 07/05/24 documented in this [facility]01-06-2025 History of Present illness Narrative* Ana Salter - 07/05/2024 10:50 AM EST Nutrition rescreen completed. Chart reviewed. Patient to be monitored and followed by the diet licensed chemical spray technician. * Lucrecia BonillaBill Pantoja, PT - 07/05/2024 10:13 AM EST Images from the original note were not included. PHYSICAL THERAPY [facility] Initial Evaluation Name/MRN: Carlo Medina ([id number]) Evaluation Date: 07/05/2024 Date of : 1980 Admission Date: 07/03/2024 8:56 AM Age: 44 y.o. Room/Bed: T1-112/T1112 A Discharge Recommendation: Home with assist PRN [...] 06/17/2024 Performed by Akilah Diaz MD at [facility] Cardiac Supervisor Dry Cleaning Admission Diagnosis: Patient Active Problem List Diagnosis Date Noted Acute kidney injury superimposed on CKD (HCC) ([facility]) 07/03/2024 Noncompliance 06/19/2024 History of left bundle branch block (LBBB) 06/19/2024 Sinus tachycardia 06/19/2024 Acute HFrEF (heart failure with reduced ejection fraction) ([facility]) 06/13/2024 Essential hypertension 06/08/2024 Elevated liver enzymes 06/08/2024 CKD (chronic kidney disease) 06/08/2024 Moderate malnutrition (CMS/HCC) ([facility]) 05/29/2024 Metabolic acidosis 05/28/2024 Pulmonary vascular congestion 04/28/2024 HFrEF (heart failure with reduced ejection fraction) ([facility]) 04/28/2024 Shortness of breath 02/28/2024 Leg swelling [...] Responsibilities: Independent Receives Help From: None Active Cartography Teacher: N/A Prior Level of Function Prior Level [...] of Care supervision is transferred to a [facility] Services Physical Therapist. Goals and/or treatment plan was established in collaboration with patient/family/other representatives. * Roopa Lugo DO - 07/05/2024 5:59 AM EST Images from the original note were not included. [facility] [place] [facility] CCU PROGRESS NOTE Patient Name: Carlo Medina : 1980 Subjective: Hospital course: Carlo Medina is a 44 y.o. male with PMH HFrEF(20% 05/2024), moderate mitral regurg, CKD 3b, HTN, DVT, and HLD that presented to [facility] on 07/03/2024 from outside facility ([facility]) due to shortness of breath. Pt reports around 0700 he awoke with shortness of breath and abd pain. Statesit felt as if he could not take a deep breath. Pt notes this has occurred in the past and felt similar to when he was admitted to [facility] in 2023. At that time he was [...] QT Interval 350 QTC Interval 480 P Cylinder 60 QRS Cylinder -24 T Wave Cylinder 89 DE Interval 153 Impression Incomplete analysis due to [...] 23.27 kg/m . - Disposition: Transfer to [facility] / Telemetry. Cosigned by Ab Coppola MD at 07/05/2024 4:34 PM EST Associated attestation - Ab Coppola MD - 07/05/2024 4:34 PM EST I, Dr. Ab Coppola, saw and evaluated the patient on 07/05/24 in / A. I personally obtained the reardon and critical portions of the history and physical exam. I reviewed the labs, imaging studies, and electronic medical record. I reviewed the Charge Machine Operator's documentation, and discussed the patient with the Charge Machine Operator. I agree with the Charge Machine Operator's medical decision making and have edited the note to reflect my clinical findings and my assessment and plan. In summary, Mr. Medina is a 44 year old man with a history of moderate MR, HFrEF from [facility], EF 20%, CKD stage III, hypertension, who prsented to [facility] with shortness of breath and abdominal pain [...] Henever received a central line or a [place]. Today I spoke to him about the [...] Coppola MD, PhD Advanced Heart Failure Cardiology [facility]. Heart [facility] [place] 4:32 PM 07/05/24 * Cat Duque DO [...] from the original note were not included. [facility] [place] [facility] CCU PROGRESS NOTE Patient Name: Carlo Medina : 1980 Subjective: Hospital course: Carlo Medina is a 44 y.o. male with PMH HFrEF(20% 05/2024), moderate mitral regurg, CKD 3b, HTN, DVT, and HLD that presented to [facility] on 07/03/2024 from outside facility ([facility]) due to shortness of breath. Pt reports around 0700 he awoke with shortness of breath and abd pain. Statesit felt as if he could not take a deep breath. Pt notes this has occurred in the past and felt similar to when he was admitted to [facility] in 2023. At that time he was [...] Intake/Output Summary (Last 24 hours) at 07/04/2024 0685 Last data filed at 07/04/2024 0530 Gross [...] Report Dictated on Electronically Signed By: Shane Gaalrza MD Electronically Signed Date/Time: 07/03/2024 10:08 AM EST Cardiac Studies: Telemetry findings reviewed: Sinus Tach ECG: Encounter Date: 07/03/24 ECG 12 lead Result Value Heart Rate 113 QRSD Interval 97 QT Interval 350 QTC Interval 480 P Cylinder 60 QRS Cylinder -24 T Wave Cylinder 89 DE Interval 153 Impression Incomplete analysis due to [...] plan. Please see H&P. documented in this [facility]01-06-[facility]25 Hospital Discharge instructions* Discharge Instructions* Dia Gaitan RN - 07/05/2024 9:17 AM EST My Heart Failure Action Plan Use the below chart as a guide for daily symptom monitoring after you obtain your morning weight. My Bun Panner: Dr. Leatha Murrell [facility] [phone] My Diagnosis: Heart failure with reduced ejection [...] 5 pounds in a week Call your Bun Panner!! My Diet Goal: General diet recommendations for [...] pain or cannot breathe. documented in this [facility]01-04-2025 History and physical note* Ofelia Villalobos MD - 07/03/2024 7:54 PM EST Images from the original note were not included. [facility] [place] [facility] CCU HISTORY & PHYSICAL Patient Name: Carlo Medina : 1980 Date of Admission: 07/03/2024 8:56 AM Established hydraulic corrugating machine operator: Dr. Khan Subjective: Chief Complaint: Shortness of breath History of Present Illness: Carlo Medina is a 44 y.o. male with PMH HFrEF(20% 05/2024), moderate mitral regurg, CKD 3b, HTN, DVT, and HLD that presented to [facility] on 07/03/2024 from outside facility ([facility]) due to shortness of breath. Pt reports around 0700 he awoke with shortness of breath and abd pain. States it felt as if hecould not take a deep breath. Pt notes this has occurred in the past and felt similar to when he was admitted to [facility] in 2023. At that time he was [...] 06/17/2024 Performed by Akilah Diaz MD at [facility] Cardiac Supervisor Dry Cleaning Family History: Family History Problem Relation Name [...] up on Lasix 20mg PO 2 days FURNACE COMBUSTION ANALYST. Pt appears volume up on exam. JVD [...] HTN, DVT, and HLD that presented to [facility] on 07/03/2024 from outside facility ([facility]) due toshortness of breath. Patient is [...] secondary to impairment of the cardiovascular system. [facility] [id number] [facility]01-04-2025 History and physical note* Ofelia Villalobos MD - 07/03/2024 7:54 PM EST Images from the original note were not included. [facility] [place] [facility] CCU HISTORY & PHYSICAL Patient Name: Carlo Medina : 1980 Date of Admission: 07/03/2024 8:56 AM Established hydraulic corrugating machine operator: Dr. Khan Subjective: Chief Complaint: Shortness of breath History of Present Illness: Carlo Medina is a 44 y.o. male with PMH HFrEF(20% 05/2024), moderate mitral regurg, CKD 3b, HTN, DVT, and HLD that presented to [facility] on 07/03/2024 from outside facility ([facility]) due to shortness of breath. Pt reports around 0700 he awoke with shortness of breath and abd pain. States it felt as if hecould not take a deep breath. Pt notes this has occurred in the past and felt similar to when he was admitted to [facility] in 2023. At that time he was [...] 06/17/2024 Performed by Akilah Diaz MD at [facility] Cardiac Supervisor Dry Cleaning Family History: Family History Problem Relation Name [...] up on Lasix 20mg PO 2 days FURNACE COMBUSTION ANALYST. Pt appears volume up on exam. JVD [...] HTN, DVT, and HLD that presented to [facility] on 07/03/2024 from outside facility ([facility]) due toshortness of breath. Patient is [...] of the cardiovascular system. documented in this [facility]01-04-2025 Emergency department Note* Shanti Rodriguez RN - 07/03/2024 6:23 PM EST [facility] arrived to transport pt to [facility] . Pt ambulated to [facility] without difficulty. Pt A&O, calm, and cooperative, no signs of distress noted. VS stable. Resp even, non labored. [facility] [id number] Emergency department Note* Shanti Rodriguez RN - 07/03/2024 6:23 PM EST Attempted to call report to T1 at [facility] no answer. [facility] [id number] Emergency department Note* Shanti Rodriguez RN - 07/03/2024 6:23 PM EST [facility] arrived to transport pt to [facility] . Pt ambulated to [facility] without difficulty. Pt A&O, calm, and cooperative, no signs of distress noted. VS stable. Resp even, non labored. * Shanti Rodriguez RN - 07/03/2024 6:23 PM EST Attempted to call report to T1 at [facility] no answer. * Yasmeen Petersen RN - [...] shob started last pm. 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 HISTORY OF PRESENT ILLNESS (Location/Symptom, Timing/Onset, [...] 06/17/2024 Performed by Akilah Diaz MD at [facility] Cardiac Supervisor Dry Cleaning CURRENT MEDICATIONS Current Discharge Medication List CONTINUE [...] min Stress: No Stress Concern Present (04/28/2024) [place] [employer] - Occupational Stress Questionnaire Feeling of Stress : Not at all Recent Concern: Stress - Stress Concern Present (02/28/2024) [place] [employer] - Occupational Stress Questionnaire Feeling of Stress : To some extent Social Connections: Unknown (04/28/2024) Social Connection and Isolation Panel [NHANES] Frequency of Communication with Friends and Family: Once a week Frequency of Social Gatherings with Friends and Family: Once a week Attends Caodaism Services: Patient unable to answer Active Member [...] to suggest cholecystitis. Given the positive sonographic Emlendez sign, if there is persistent concern, HIDA [...] Culture. Procedure Abnormality Status --------- ------ Complete Urinalysis[[id number]] Abnormal Final result Please view results for [...] Lying Pulse: 109 105 101 104 Resp: 16 12 Temp: 36.8 C (98.3 F) [...] medical records reviewed, external records reviewed from [facility] cardiology Dr. Zhang on 07/01/2024 assessment and [...] 06/13/2024 and discharged on 06/21/2024 here at [facility] with hospital course as follows: Hospital Course: patient with acute HFrEF exacerbation and worsening renal function, with IV diuresis, Cardiology and nephrology following. Improvement in volume status, however now worse renal function, nephrology on consult. Repeat echo now with LVEF of 20%, cardiology following. Planned for [facility] on 06/17/24, ruled out coronary disease, deemed non-ischemic cardiomyopathy. Cardiology recommending possible transfer to [facility] to be monitored in heart failure ICU, however patient refused transfer to [facility]. Resumed on Eliquis for newly acute diagnosis [...] C discussion as well. He is on [facility] cardiology recs as tolerated. Renal function [...] Dr. Mcguire here he recommended HLU at [facility]. I discussed with generation technologist and they accepted to HLU under Dr. [...] Alonso DO at 07/04/2024 7:10 AM EST * Kishore Alonso DO - 07/03/2024 8:50 AM EST Emergency Department Encounter [facility] ED Patient: Carlo Medina : 1980 Date [...] shob started last pm. 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 [facility]01[facility]04[facility] Emergency department Note* Yasmeen Petersen RN - 07/03/2024 3:17 PM EST Pt given bedside table to food tray [facility]01-04-2025 Emergency department Note* Shanti Rodriguez RN - 07/03/2024 1:22 PM EST Pt given urinal asked to void if able. Pt states he does not have to urinate at this time. [facility]01-04-2025 Note1. Small ascites, progressed from the prior [...] MD Electronically Signed Date/Time: 07/03/2024 10:38 AM [facility] [id number] Emergency department Note* Jyotsna Wilcox RN - 07/03/2024 10:02 AM EST Patient refusing to let this RN attempt IV without ultra sound. Patient states I dont want you to poke me without it [facility]01-04-2025 Emergency department Note* Shanti Rodriguez RN - 07/03/2024 9:52 AM EST This RN attempted IV stick multiple times and was unsuccessful. Charge nurse notified. [facility]01-04-2025 Emergency department Note* Judie Cortes RN - 07/03/2024 9:16 AM EST Patient requesting to be placed on oxygen. Patients oxygen saturation was 98% on room air at time of triage. Patient is now 95% on room air. Patient advised that he does not require oxygen at this time. [facility] [id number] Emergency department Triage note* Judie Cortes RN - 07/03/2024 8:50 AM EST Patient reports he has a history of heart disease and stage 3 kidney disease. Patient reports shob started last pm. 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 [facility] [id number] Physician Emergency department Note* Meek Dover PA-C [...] shob started last pm. 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 HISTORY OF PRESENT ILLNESS (Location/Symptom, Timing/Onset, [...] 06/17/2024 Performed by Akilah Diaz MD at [facility] Cardiac Supervisor Dry Cleaning CURRENT MEDICATIONS Current Discharge Medication List CONTINUE [...] min Stress: No Stress Concern Present (04/28/2024) [place] [employer] - Occupational Stress Questionnaire Feeling of Stress : Not at all Recent Concern: Stress - Stress Concern Present (02/28/2024) [place] [employer] - Occupational Stress Questionnaire Feeling of Stress : To some extent Social Connections: Unknown (04/28/2024) Social Connection and Isolation Panel [NHANES] Frequency of Communication with Friends and Family: Once a week Frequency of Social Gatherings with Friends and Family: Once a week Attends Caodaism Services: Patient unable to answer Active Member [...] Culture. Procedure Abnormality Status --------- ------ Complete Urinalysis[[id number]] Abnormal Final result Please view results for [...] medical records reviewed, external records reviewed from [facility] cardiology Dr. Zhang on 07/01/2024 assessment [...] 06/13/2024 and discharged on 06/21/2024 here at [facility] with hospital course as follows: Hospital Course: patient with acute HFrEF exacerbation and worsening renal function, with IV diuresis, Cardiology and nephrology following. Improvement in volume status, however now worse renal function, nephrology on consult. Repeat echo now with LVEF of 20%, cardiology following. Planned for [facility] on 06/17/24, ruled out coronary disease, deemed non-ischemic cardiomyopathy. Cardiology recommending possible transfer to [facility] to be monitored in heart failure ICU, however patient refused transfer to [facility]. Resumed on Eliquis for newly acute diagnosis [...] GOC discussion as well. [facility]. Renal function improving [...] Dr. Mcguire here he recommended HLU at [facility]. I discussed with generation technologist and they accepted to HLU under Dr. [...] signed) Emergency Medicine Provider Meek Dover PA-C 07/03/246 Cosigned by Kishore Alonso DO at 07/04/2024 7:10 AM EST [facility] [id number] Physician Emergency department Note* Kishore Alonso DO - 07/03/2024 8:50 AM EST Emergency Department Encounter [facility] ED Patient: Carlo Medina : 1980 Date [...] [employer] Kishore Alonso DO 07/03/24 1218 [facility] Work Phone: 1(217) 451-684501-02-2025 History of Present illness Narrative* Alex Zhang MD - 07/01/2024 10:45 AM EST [facility] Medical [facility] Cardiology [facility] - [place] [address] [address] [facility] [address] [facility] [address] Dept: [phone] Dept Visit type: Established : 1980 Chief [...] 06/17/2024 Performed by Akilah Diaz MD at [facility] Cardiac Supervisor Dry Cleaning Family History Family History Problem Relation Name [...] kidney disease stage IIIb. [facility]01[facility]02[facility] History of Present illness Narrative* Alex Zhang MD - 07/01/2024 10:45 AM EST [facility] Cardiology [facility] - [address] [facility] [address] Dept: [phone] Dept Visit type: Established : 1980 Chief [...] 06/17/2024 Performed by Akilah Diaz MD at [facility] Cardiac Supervisor Dry Cleaning Family History Family History Problem Relation Name [...] kidney disease stage IIIb. [facility]01[facility] History of Present illness Narrative* Alex Zhang MD - 07/01/2024 10:45 AM EST [facility] Medical Group Cardiology [facility] - [address] [facility] [address] Dept: [phone] Dept Visit type: Established : 1980 Chief [...] 06/17/2024 Performed by Akilah Diaz MD at [facility] Cardiac Supervisor Dry Cleaning Family History Family History Problem Relation Name [...] kidney disease stage IIIb. [facility]01-02-2025 Miscellaneous Notes* Addendum Note - THOMAS Alvarez CNP - 07/01/2024 10:45 AM ESTAddended by: SEPIDEH TOWNSEND on: 08/20/2024 04:37 PM Modules accepted: Orders documented in this [facility]01-02-2025 Note* Addendum Note - THOMAS Alvarez CNP - 07/01/2024 10:45 AM ESTAddended by: SEPIDEH TOWNSEND on: 08/20/2024 04:37 PM Modules accepted: Orders [employer] Phone: 1(311) 187-744001-02-2025 Note* Addendum Note - THOMAS Alvarez CNP - 07/01/2024 10:45 AM ESTAddended by: SEPIDEH TOWNSEND on: 08/20/2024 04:37 PM Modules accepted: Orders [employer] Phone: 1(157) 971-186912-26-2024 Miscellaneous Notes* Telephone Encounter - Kaitlin Gonzalez [...] recognize or compliment: no documented in this [facility]12-26-2024 Telephone encounter Note* Telephone Encounter - [...] would like to recognize or compliment: no [facility] [id number] Telephone encounter Note* Telephone Encounter - Kaitlin Gonzalez LPN - 06/22/2024 10:17 AM EST S: Patient admitted to: [facility] 06/13/24 B: Discharged on : 06/21/24 A: Hospital follow up call initiated to discuss any medication changes, follow up appointments and discharge instructions: Acute HFrEF (heart failure with reduced ejection fraction) R: No contact x 1 at : [phone] [facility] [id number] Miscellaneous Notes* Telephone Encounter - Kaitlin Gonzalez LPN - 06/22/2024 10:17 AM EST S: Patient admitted to: [facility] 06/13/24 B: Discharged on : 06/21/24 A: Hospital follow up call initiated to discuss any medication changes, follow up appointments and discharge instructions: Acute HFrEF (heart failure with reduced ejection fraction) R: No contact x 1 at : [phone] [facility]12[facility]23[facility] Nurse Note* Chloé Chilel RN - 06/21/2024 2:52 PM EST Gave patient discharge instructions. Patient verbalized understanding. Discussed the importance of taking the medications as prescribed. Importance of following up with Dr. Burnette and Dr Mccullough. IV discontinued. Meds to beds delivered scripts. [facility] [id number] Nurse Note* Chloé Chilel RN - 06/21/2024 [...] tele monitor. Dr. Mcguire and Gaby Marcano BASE WAD OPERATOR ADJUSTER forcardiology notified. No new orders at this [...] call light in reach. documented [facility] this [facility]12[facility]23-2024 [facility] 06-21-2024 Hospital course Narrative* Sergei Mcguire DO [...] non-ischemic cardiomyopathy. Cardiology recommending possible transfer to [facility] to be monitored in heart failure ICU, however patient refused transfer to [facility]. Resumed on Eliquis for newly acute diagnosis [...] Your Medications These medications were sent to [facility] [address] [facility] [address] Hours: Friday to Friday 10 am to 6 pm apixaban 5 MG tablet hydrALAZINE 25 MG tablet isosorbide dinitrate 20 MG tablet pantoprazole 40 MG EC tablet Recommended Follow-up: Cardiology, nephrology, PCP outpatient in 1-2 weeks. @READMISSIONRISK@ Complexity of Follow up: [] Moderate Complexity: follow up within 7-14 calendar days (66759) [x] Severe Complexity: follow up within 7 calendar days (20235) Follow up Testing, Pending results or Referrals [...] frame. Signed: Sergei Mcguire DO [facility] 06/21/2024, 1:54 PM Total time Spent on Discharge: 32 minutes documented in this [facility]12-23-2024 History of Present illness Narrative* Jia Santoro MD - 06/21/2024 1:44 PM EST Telemetry reviewed. No evidence of VT seen on telemetry strips sent by RN. P waves precede each QRScomplex. Patient with known intermittent LBBB. Potassium and Magnesium normal. Continue with current management. Jia Santoro MD Department of Cardiovascular Disease [facility] [place] 1:46 PM 06/21/24 * Maritza Linn, CERTIFIED RECREATIONAL THERAPIST - OFFICE CORRESPONDENT - 06/21/2024 11:47 AM EST [facility] Progress Note Subjective/ 44 y.o. [...] mg daily -No s/s of KELSIE from [facility], now outside of window for potential [...] any questions or concerns. Maritza Linn APRN, OFFICE CORRESPONDENT [facility], [facility] [phone] Cosigned by Anand Mccullough MD at 06/21/2024 1:47 PM EST Associated attestation - Anand Mccullough MD - 06/21/2024 1:47 PM EST I have reviewed the above assessment and plan with the BASE WAD OPERATOR ADJUSTER. I agree with above note. Lasix per cardiology. Cr stable. * Sergei Mcguire, DO - 06/21/2024 10:04 AM EST Hospitalist Progress Note 06/21/2024 [phone]: Please page me ([phone]) for patient care issues. [phone]: Please page [place] night Hospitalist for any issues. Subjective: Admit [...] per cardiology. Cardiology recommending possible transfer to [facility] to be monitored in heart failure ICU, [...] morning lab draws. Palliative care yesterday for GOC given his poor compliance. He is high [...] DO Division of Hospitalist Medicine Inpatient Medical Services/[facility] PAGER: Epic chat * THOMAS Urbano CNP - 06/21/2024 8:17 AM EST [facility] [place] [facility] [place]rophysiology Progress Note HPI / [...] for cardiac output he was recommended admission tot HLU/HF-ICU at [facility], however refused transfer for. Possible etiologies are [...] is also not willing to transfer to [facility] for a higher level of care. He [...] -He was recommended transfer to HLU/HF-ICU at [facility] for more aggressive management of his heart [...] low he would be a candidate for ENGINE DYNAMOMETER TESTER-D - again after multiple hospitalizations and multiple [...] above, he refuses transfer to HLU/HF-ICU at [facility] for more aggressive management -We have optimized [...] the past 168 hrs: Weight Weight Method 06/20/241934 167 lb 11.2 oz (76.1 kg) -- [...] CNP Date Of Service 06/21/2024 * Sergei Mcguire, - 06/20/2024 12:44 PM EST Hospitalist Progress Note 06/20/2024 [phone]: Please page me ([phone]) for patient care issues. [phone]: Please page [facility] Hospitalist for any issues. Subjective: Admit Date: [...] per cardiology. Cardiology recommending possible transfer to [facility] to be monitored in heart failure ICU, [...] DO Division of Hospitalist Medicine Inpatient Medical Services/[facility] PAGER: Epic chat * Angel Luis Lassiter MD - 06/20/2024 10:53 AM EST [facility] Cardiology Progress Note HPI / Interval History: [...] Morales discussed with him possible transfer to [facility] for more invasive monitoring for his heart failure, but as previously, he does not want to do this. Also talked about hisneed eventually for an ICD assessment, and he may consider this in the future but currently did notwant to go to [facility] for this evaluation either. Renal also thought [...] Anticoagulation: OAC for DVT (mgt per primary) ICD/ENGINE DYNAMOMETER TESTER: Candidate for ENGINE DYNAMOMETER TESTER-D if LBBB became chronic but would need [...] would recommend outpt genetic testing for dilated DESULFURIZER MACHINE. - He is still dyspneic with light exertion but does not wish transfer to [facility] given his very borderline compensated heart failure [...] could opt for Adv HF evaluation at [facility] which is preferred. He could be Dc'd to an appropriate locationfor his level of function, but unclear if he could rehab and become stronger given low cardiac outpt. Very high risk for readmission. Noncompliance likely due to multiple factors not all known at this time (medical literacy and social support are issues) contribute to this risk and his poor prognosis long chain beamer. There may be an opportunity for improved [...] he does not want to go to [facility]. Will try to get him managed medically [...] Date Of Service 06/20/2024 * Maritza Linn, CERTIFIED RECREATIONAL THERAPIST - OFFICE CORRESPONDENT - 06/20/2024 10:13 AM EST [facility] [...] KELSIE and a 0.12% chance of needing TRUST VAULT CUSTODIAN -Ok for prn diuresis for s/s of [...] questions or concerns. Maritza Linn APRN, VIKKI [facility] [employer] [facility] [phone] Cosigned by Saul Briones MD at 06/20/2024 3:09 PM EST Associated attestation - Saul Briones MD - 06/20/2024 3:09 PM EST Notes reviewed and plan discussed with the BASE WAD OPERATOR ADJUSTER. Agree with above note except Any variance is noted below. Saul Briones MD [facility] [phone] * Sergei Mcguire DO - 06/19/2024 11:53 AM EST Hospitalist Progress Note 06/19/2024 [phone]: Please page me ([phone]) for patient care issues. [phone]: Please page [facility] Hospitalist for any issues. Subjective: Admit Date: [...] per cardiology. Cardiology recommending possible transfer to [facility] to be monitored in heart failure ICU, [...] DO Division of Hospitalist Medicine Inpatient Medical Services/[facility] PAGER: Epic chat * Maritza VarelaBill Temitope, CERTIFIED RECREATIONAL THERAPIST - OFFICE CORRESPONDENT - 06/19/2024 9:52 AM EST [facility] [...] KELSIE and a 0.12% chance of needing TRUST VAULT CUSTODIAN -Ok for prn diuresis for s/s of [...] questions or concerns. Maritza Linn APRN, VIKKI [facility], [facility] [phone] Cosigned by Saul Briones MD at 06/19/2024 11:51 AM EST Associated attestation - Saul Briones MD - 06/19/2024 11:51 AM EST Notes reviewed and plan discussed with the power manager. Agree with above note except Any variance is noted below. Saul Briones MD [facility] [phone] * Angel Luis Lassiter MD - 06/19/2024 6:52 AM EST [facility] Cardiology Progress Note HPI / Interval History: [...] Morales discussed with him possible transfer to [facility] for more invasive monitoring for his heart failure, but as previously, he does not want to do this. Also talked about hisneed eventually for an ICD assessment, and he may consider this in the future but currently did notwant to go to [facility] for this evaluation either. Renal also thought [...] Anticoagulation: OAC for DVT (mgt per primary) ICD/ENGINE DYNAMOMETER TESTER: Candidate for ENGINE DYNAMOMETER TESTER-D if LBBB became chronic but would need [...] would recommend outpt genetic testing for dilated DESULFURIZER MACHINE. - Rec ambulate in the burgos, if he still dyspneic with minimal exertion will continue to offer transfer to [facility] given his very borderline compensated heart failure [...] could opt for Adv HF evaluation at [facility] which is preferred. He could be Dc'd to an appropriate locationfor his level of function, but unclear if he could rehab and become stronger given low cardiac outpt. Very high risk for readmission. Noncompliance likely due to multiple factors not all known at this time contribute to this risk and his poor prognosis long chain beamer. There may be an opportunity for improved [...] he does not want to go to [facility]. Will try to get him managed medically [...] declining labs. Cardiology recommending possible transfer to [facility] to be monitored in heart failure ICU, however patient is refusing. LHC and RHC ruled out coronary disease, deemed non-ischemic cardiomyopathy. Pt reports jojo meals and requests to have Ensure discontinued at this time. Estimated Daily Nutrient Needs: Energy Requirements Based On: Kcal/kg Weight Used for Energy Requirements: Admission Weight for Energy Calculation (kg): 80 kg Total Energy Requirements (kcals/day): 2014-5258 kcals (25-30 kcals/kg) Weight Used for Protein [...] Body Weight: 93 kg (205 lb) (205#- 9/1/24, 186#-03/07/24, 191#-04/28/24) % Weight Change (Calculated): -14.5 [place] Body Weight (lbs) (Calculated): 184 lbs [place] Body Weight (Kg) (Calculated): 84 kg % [place] Body Weight (Calculated): 95.2 % BMI (kg/m2) [...] Continue current diet Tahmina Berg RD Contact: [phone] or via Secure Chat * Sergei Mcguire DO - 06/18/2024 11:10 AM EST Hospitalist Progress Note 06/18/2024 [phone]: Please page me ([phone]) for patient care issues. [phone]: Please page [facility] night Hospitalist for any issues. Subjective: Admit [...] per cardiology. Cardiology recommending possible transfer to [facility] to be monitored in heart failure ICU, [...] DO Division of Hospitalist Medicine Inpatient Medical Services/[facility] PAGER: Epic chat * Maritza Linn APRN - VIKKI - 06/18/2024 10:46 AM EST [facility] Progress Note [...] labs again this morning, now agreeable and TRUST VAULT CUSTODIAN RN at bedside for US collection -Last labs were near bl~1.5-1.7, non-oliguric, BP stable -C/w holding diuresis through today until labs can be interpreted -Jorge Alberto score is 7 points, c/w a 14% chance of KELSIE and a 0.12% chance of needing TRUST VAULT CUSTODIAN -Again, counseled on importance of allowing labs [...] any questions or concerns. Maritza Linn APRN, OFFICE CORRESPONDENT [facility], [facility] [phone] Cosigned by Anand Mccullough MD at 06/18/2024 4:06 PM EST Associated attestation - Anand Mccullough MD - 06/18/2024 4:06 PM EST SCHUYLER/ATN, possibly 2/2 volume depletion from over-diuresis vs CRS (N17.0) Acute on chronic HFrEF exacerbation (I50.23) Met acidosis 87.21 Z91.1 Still euvolemic. Cr stable. Add Torsemide 10mg qday. * Angel Luis Morales MD - 06/18/2024 10:46 AM EST [facility] [place] [facility] [place]Electrophysiology Progress Note HPI / [...] did discuss with him possible transfer to [facility] for more invasive monitoring for his heart failure, but as previously, he does not want to do this. We also talked about his need eventually for an ICD assessment, and he may consider this in the future but currently does not want to go to [facility] for this evaluation either. of 5 recent [...] minimal exertion willneed to rediscuss transfer to [facility] given his very borderline compensated heart failure [...] he does not want to go to [facility]. Will try to get him managed medically [...] Date Of Service 06/18/2024 * Maritza VarelaBill Andujarconchita, CERTIFIED RECREATIONAL THERAPIST - OFFICE CORRESPONDENT - 06/17/2024 1:34 PM EST [facility] Progress Note Subjective/ 44 y.o. year old male who we are seeing in consultation for SCHUYLER/CKD. JENIFFER Feels ok Resting in bed No edema [...] KELSIE and a 0.12% chance of needing TRUST VAULT CUSTODIAN -Agree with post-procedure IVF as ordered per [...] with any questions or concerns. Maritza Linn, CERTIFIED RECREATIONAL THERAPIST, OFFICE CORRESPONDENT [facility] [employer] [phone] Cosigned by Anand Mccullough MD at 06/17/2024 [...] diuresis tomorrow depending on volume status. * THOMAS Urbano CNP - 06/17/2024 1:22 PM EST [facility] [place] [facility] [place]iology /Electrophysiology Progress Note HPI / [...] 2200. [facility] with possible dobutamine [...] 1:15 PM EST Hospitalist Progress Note 06/17/2024 [phone]: Please page me ([phone]) for patient care issues. [phone]: Please page [facility] Hospitalist for any issues. Subjective: Admit Date: 06/13/2024 PCP: No primary care provider on file. Room#: B2-243/B2-243 A Interval History: patient admitted for acute CHF exacerbation. No overnight issues. Denies chest pain, sob, abdominal pain, nausea, vomiting, diarrhea, constipation, fevers, or chills. Reports breathing easier, tolerating PO intake well. He is agreeable to [facility] today. NPO diet Adult diet Regular; Low Fat/Low Chol/High Fiber/2 gm Na 24HR INTAKE/OUTPUT: Intake/Output Summary (Last 24 hours) at 06/17/2024 1315 Last data filed at 06/17/2024 1039 Gross per 24 hour Intake -- Output 5 ml Net -5 ml Past Medical History: Past Medical History: Diagnosis Date CHF (congestive heart failure) (HCC) CKD (chronic kidney disease) Hypercholesteremia Hypertension LABS: CBC: Recent Labs 06/16/24917 WBC 5.5 RBC 4.79 HGB 15.6 HCT 47.5 MCV 99.2* RDW 13.6 PLT 195 BMP: Recent Labs 06/15/2441306/16/24917 NA 144 140 K 4.1 3.9 CL [...] DO Division of Hospitalist Medicine Inpatient Medical Services/[facility] PAGER: Epic chat * Sergei Mcguire DO - 06/16/2024 3:41 PM EST Hospitalist Progress Note 06/16/2024 [phone]: Please page me ([phone]) for patient care issues. [phone]: Please page [facility] Hospitalist for any issues. Subjective: Admit Date: [...] Significant Other Sergei Mcguire DO [facility] PAGER: Epic chat * Maritza Linn, CERTIFIED RECREATIONAL THERAPIST - OFFICE CORRESPONDENT - 06/16/2024 11:42 AM EST [facility] Progress Note Subjective/ 44 y.o. year old male who we are seeing in consultation for SCHUYLER/CKD. JENIFFER Feels ok Resting in bed No edema [...] 47.5 52.1* PLATELETS 10*3/uL 195 217 Assessment/Plan SCHUYLRE/ATN, possibly 2/2 volume depletion from over-diuresis vs [...] any questions or concerns. Maritza Linn APRN, OFFICE CORRESPONDENT [facility], [facility] [phone] Cosigned by Anand Mccullough MD at 06/16/2024 [...] severe. Not renal in origin * Luma Joy, THOMAS - OFFICE CORRESPONDENT - 06/16/2024 10:32 AM EST [facility] Cardiology /Electrophysiology Progress Note HPI / Interval [...] Sitting Pulse: 111 57 105 56 Resp: Temp: 37.3 C (99.1 F) 36.3 C [...] 06/15/2024 5:24 PM EST Hospitalist Progress Note 06/15/2024 [phone]: Please page me ([phone]) for patient care issues. [phone]: Please page [facility] Hospitalist for any issues. Subjective: Admit Date: [...] Significant Other Sergei Mcguire DO [facility] PAGER: Epic chat * Angel Luis Morales MD - 06/15/2024 4:08 PM EST [facility] Cardiology /Electrophysiology Progress Note HPI / Interval [...] Historically, he has refused to go to [facility] when this was offered to him 2 [...] Inpatient algorithms. Recent Labs 06/13/24 1459 06/13/24 203406/14/24 0342 06/15/24 0414 NA 142 142 144 [...] MD Date Of Service 06/15/2024 * Dudley Oropeza, MAGNE - 06/14/2024 2:30 PM EST Nutrition Assessment [...] Severe Extremities (Pt here for HF exacerbation) Drawing Hand Strength: Not Performed Nutrition Assessment: Pt is a 44 y/o male admitted to [facility] with CC of SOB, leg swelling for [...] >1 month. During a previous admit to [facility], pt had trialed Ensure, but felt like [...] (kg): 80 kg Total Energy Requirements (kcals/day): 5931-2825 kcals (25-30 kcals/kg) Weight Used for Protein [...] 186#-03/07/24, 191#-04/28/24) % Weight Change (Calculated): -14.5 [place] Body Weight (lbs) (Calculated): 184 lbs [place] Body Weight (Kg) (Calculated): 84 kg % [place] Body Weight (Calculated): 95.2 % BMI (kg/m2) [...] Oral Nutrition Supplement Dudley Oropeza RD Contact: [phone] or via Secure Chat * Serg Celaya MD - 06/14/2024 9:58 AM EST Hospitalist Progress Note 06/14/2024 [phone]: Please page me ([phone]) for patient care issues. [phone]: Please page [facility] night Hospitalist for any issues. Subjective: Admit [...] Adult diet Regular; Low Sodium (2 gm) @[id number]@ 24HR INTAKE/OUTPUT: Intake/Output Summary (Last 24 hours) [...] MD Division of Hospitalist Medicine Inpatient Medical Services/[facility] PAGER: Epic chat documented in this [facility]12-23-2024 Nurse Note* Tamiko Live RN - 06/21/2024 1:[address] Mcguire and Gaby Marcano APRN from cardiology regarding 20 beat run of VT through message. ] [facility] [id number] Note* Care Coordination - Brittany Alston RN [...] Length of Stay (Days): 8 GMLOS: 5.4 [facility] [id number] Note* Care Coordination - Brittany Alston RN [...] Length of Stay (Days): 8 GMLOS: 5.4 [facility] [id number] Miscellaneous Notes* Care Coordination - Brittany Alston [...] sedation as planned. * Significant Event - THOMAS Urbano CNP - 06/17/2024 8:43 AM EST Spoke with Marcus Delvalle RN from [employer]. Pt refused RHC/LHC yesterday, but was agreeable [...] was able to communicated with Christian from [employer]. Financial screening completed with patient this afternoon. Patient was over income for Medicaid program. [employer] referred patient to Hospital Care Assurance Program; application completed and submitted. HCAP will assist with current hospitalization and other [facility] encounters for up to 3 months [...] or improved Outcome: Progressing documented in this [facility]12-22-2024 Plan of care note* Care Plan - King Jackson RN - 06/20/2024 5:46 PM EST Problem: Problem Interventions Goal: Promote nutritional intake Outcome: Progressing Problem: Knowledge Deficit Goal: Patient/family/caregiver demonstrates understanding of disease process, treatment plan, medications, and discharge instructions Outcome: Progressing Problem: Potential for Compromised Skin Integrity Goal: Nutritional status is improving Outcome: Progressing [facility] [id number] Consult note* Verona Shah APRN - OFFICE CORRESPONDENT - 06/20/2024 7:42 AM ESTAssociated Order(s): IP [...] refusing appropriate care such as transfer to [facility] - introduced myself and service, why consulted, [...] really in contact with her, education of [place] law should he not be able to make medical decisions, states he would want GF to make medical decisions, will place 7th grade social studies teacher consult to complete this hopefully before dc [...] the other day. [facility], prompting palliative care [...] detailed in the note above. Verona Shah, CERTIFIED RECREATIONAL THERAPIST - OFFICE CORRESPONDENT Time-based code 37526 for 16-45 minutes. Add-on code 51203 at 46 minutes and each additional 30 minutes. Goals of care:Continue Current Management Functional Assessment: PPS: 90% Advance Directives: Full Code Surrogate: Significant Other Prognosis: [id number] than one year--if does not pursue cardiology recommendations for care Spiritual assessment: No spiritual distress identified Bereavement and grief: Grief Issues Not Identified Past Medical History: Diagnosis Date CHF (congestive heart failure) (HCC) CKD (chronic kidney disease) Hypercholesteremia Hypertension Past Surgical History: Procedure Laterality Date CARDIAC CATHETERIZATION N/A 06/17/2024 Performed by Akilah Diaz MD at [facility] Cardiac Supervisor Dry Cleaning Family History Problem Relation Name Age of Onset Heart disease Father Heart disease Brother Unable to obtain family history due to N/A- family history available No Known Allergies Review of Systems ROS: See palliative care ROS/ESAS below; All other systems were reviewed and are negative. [place] Symptom Assessment Score [place] Score Pain Score 0 Tiredness Score 0 [...] Assessed by: patient and provider. Social history: status: no Marital status: single Living status: [...] other day. Needs AICD/life vest, transfer to [facility] HLU but refusing this, prompting palliative care consult for goals of care. If does not adhere to cardiology recommendations for life-saving and prolonging therapies, life expectancy limited to 6 months or less should illness run it's natural course Transition Note Initiated: yes. Cosigned by Hortencia Hayward MD at 06/20/2024 4:55 PM EST [employer] Work Phone: [phone] Consult note* THOMAS Melvin CNP - 06/20/2024 [...] refusing appropriate care such as transfer to [facility] - introduced myself and service, why consulted, [...] really in contact with her, education of [place] law should he not be able to make medical decisions, states he would want GF to make medical decisions, will place 7th grade social studies teacher consult to complete this hopefully before dc [...] non-ischemic CM, CKD, HTN, HLD, returned to [facility] with BLE edema and increased work of breathing, admitted for another CHF exacerbation, appears not taking medications as prescribed at home, attempted to look at dispense report for community pharmacy but not found. Hospital stay further complicated by his refusal of interventions, lab work, did finally agree to R/L HC the other day. [facility]ICD[facility]life vest[facility], prompting palliative care [...] detailed in the note above. Verona Shah, CERTIFIED RECREATIONAL THERAPIST - OFFICE CORRESPONDENT Time-based code 83571 for 16-45 minutes. Add-on code 77351 at 46 minutes and each additional 30 minutes. Goals of care:Continue Current Management Functional Assessment: PPS: 90% Advance Directives: Full Code Surrogate: Significant Other Prognosis: [id number] than one year--if does not pursue cardiology recommendations for care Spiritual assessment: No spiritual distress identified Bereavement and grief: Grief Issues Not Identified Past Medical History: Diagnosis Date CHF (congestive heart failure) (HCC) CKD (chronic kidney disease) Hypercholesteremia Hypertension Past Surgical History: Procedure Laterality Date CARDIAC CATHETERIZATION N/A 06/17/2024 Performed by Akilah Diaz MD at [facility] Cardiac Supervisor Dry Cleaning Family History Problem Relation Name Age of Onset Heart disease Father Heart disease Brother Unable to obtain family history due to N/A- family history available No Known Allergies Review of Systems ROS: See palliative care ROS/ESAS below; All other systems were reviewed and are negative. [place] Symptom Assessment Score [place] Score Pain Score 0 Tiredness Score 0 [...] Assessed by: patient and provider. Social history: [place] status: no Marital status: single Living status: [...] other day. Needs AICD/life vest, transfer to [facility] HLU but refusing this, prompting palliative care consult for goals of care. If does not adhere to cardiology recommendations for life-saving and prolonging therapies, life expectancy limited to 6 months or less should illness run it's natural course Transition Note Initiated: yes. Cosigned by Hortencia Hayward MD at 06/20/2024 4:55 PM EST * THOMAS Mayer CNP - 06/15/2024 9:44 AM ESTAssociated Order(s): IP CONSULT TO NEPHROLOGY [facility] Consult Note Reason for Consult/Chief Complaint: SCHUYLER/CKD with CHF exacerbation Consulting MD: Dr. Sergei Mcguire [facility] Outpatient Interpreter And Translator: N/A History of Present Illness: Carlo is [...] Intake/Output Summary (Last 24 hours) at 06/15/2024 0949 Last data filed at 06/15/2024 0523 Gross [...] any questions or concerns. Maritza Linn APRN, OFFICE CORRESPONDENT [facility], [facility] [phone] office Cosigned by Anand Mccullough MD at [...] AM ESTAssociated Order(s): IP CONSULT TO CARDIOLOGY [facility] Cardiology /Electrophysiology Consult Note Reason for Consult/Chief Complaint: Dyspnea, edema Consulting provider: Andrew Established hydraulic corrugating machine operator: Leatha History of Present Illness: Carlo Medina [...] DATE of SERVICE: 06/14/2024 documented in this [facility]12-21-2024 Plan of care note* Care Plan - King Jackson RN - 06/19/2024 2:31 PM EST Problem: Potential for Compromised Skin Integrity Goal: Nutritional status is improving Outcome: Progressing Problem: Problem Interventions Goal: Dietary Supplements Outcome: Progressing Problem: Knowledge Deficit Goal: Patient/family/caregiver demonstrates understanding of disease process, treatment plan, medications, and discharge instructions Outcome: Progressing [facility] [id number] Nurse Note* Juliet Canchola RN - 06/18/2024 12:41 PM EST Patient refusing troponin blood draw at this time. [facility] CenterYaffub32-28-4779 Hospital Discharge instructions* Discharge Instructions* Gaby Marcano APRN - VIKKI - 06/18/2024 9:11 AM EST Expect a phone call within 72 hours post discharge. If you have questions, issues, or concerns please call or text the Ischemic Heart Disease Hotline, this is a cell phone, # [phone] (available 20/01) Post Cardiac Catheterization/Wrist Site Care Call your doctor with any medication questions or if you notice any side effects from your medications. If you are unable to fill your medications, please call your Bun Panner immediately. The office number is located with [...] Means You Should: Call/text the Ischemic hotline [phone] or your doctor's office for further instructions RED ZONE: Medical Alert Chest pain/pressure/discomfort or pain in the neck, jaw, arm, upper back that is lasting longer than 5 minutes OR NOT relieved after nitroglycerin (if prescribed) Severe shortness of breath Passing out or fainting This Means You Should Call 911 Immediately Heart-Healthy Life-Style Modifications Take your medications as prescribed Quit smoking ([email or web address]) Control your blood sugar Treat high-blood pressure Eat a heart-healthy diet, low in saturated and trans-fat, sodium and added sugars Exercise regularly Achieve and maintain a healthy weight Keep your follow-up appointments Ask Your Provider Before You Take New medications Fsud-aje-kniaobh drugs, nutrition supplements or herbal therapies Avoid [...] Cardiac Rehab The Cardiac Rehab team at [facility] consists of highly skilled exercise physiologists, nurses, [...] your heart. We have facilities at both [facility] and [facility]. At both locations we have street level parking which is free and our sites are easily accessible. For both [facility] you can contact us at . We invite you to call us with your questions or to get started in our program. If you have other questions or concerns be sure to ask your provider during your follow up visit. We look forward to seeing you there. Our locations: [facility] [id number] - Ground floor * Attachments The following attachments cannot be sent through Care Everywhere. * Heart Failure With Reduced Ejection Fraction (Lithuanian) * Heart Healthy Diet (Lithuanian) * Kidney Failure (Lithuanian) documented in this [facility]12-20-2024 Nurse Note* Kae Zhao RN - 06/18/2024 6:41 AM EST Patient had ST elevation on two leads, I called Dr. Jeter EKG done and showed ST elevation, and sinus tachycardia, with no symptoms or chest pain. Patient refused blood work again to check his troponin, BNP, and magnesium levels. IV is edematous and patient needs a new IV if not discharged. [facility] CenterTczfsr88-87-6863 NoteProblem: Problem Interventions Goal: Promote nutritional intake Outcome: Not [facility]12-20-2024 Plan of care note* Care Plan - Kae Vela RN - 06/18/2024 1:44 AM EST Problem: Problem Interventions Goal: Promote nutritional intake Outcome: Not Progressing [facility] CenterTsiprk74-05-9779 Nurse Note* Juliet Canchola RN - 06/17/2024 2:17 PM EST Patient had a twenty second run of vtach caught on tele monitor. Dr. Mcgiure and Gaby Marcano BASE WAD OPERATOR ADJUSTER forcardiology notified. No new orders at this time. [facility] CenterOibtkc25-93-3057 Nurse Note* Juliet Canchola RN - 06/17/2024 [...] sensation in right hand at this time. [facility] CenterAmlmvq03-84-7282 Note* Pre-Sedation Documentation - Akilah Diaz MD [...] and proceed to administer sedation as planned. [facility] Phone: 1(903) 633-417812-19-2024 Note* Pre-Sedation Documentation - Akilah Diaz MD [...] and proceed to administer sedation as planned. QE Phone: 1(583) 330-539012-19-2024 Note* Significant Event - THOMAS Urbano CNP - 06/17/2024 8:43 AM EST Spoke with Marcus Delvalle RN from [employer]. Pt refused RHC/LHC yesterday, but was agreeable [...] morning, including aspirin and IV Fluids per [facility]. Reviewed with his nurse, as well as Marcus Delvalle RN. No further questions at this time. Will await cath results. [employer]12-19-2024 Note* Significant Event - THOMAS Urbano CNP - 06/17/2024 8:43 AM EST Spoke with Marcus Delvalle RN from [employer]. Pt refused RHC/LHC yesterday, but was agreeable [...] at this time. Will await cath results. [facility]12-18-2024 Nurse Note* Radha Acevedo RN - 06/16/2024 [...] he refused for nightshift. Radha Acevedo RN [facility]12-18-2024 Plan of care note* Care Plan - [...] Goal: Promote nutritional intake Outcome: Not Progressing [facility]12-17-2024 Note* Care Coordination - Brittany Alsotn RN - 06/15/2024 1:20 PM EST Care [...] Length of Stay (Days): 2 GMLOS: 3.9 [facility] [id number] Note* Care Coordination - Brittany Alston RN [...] Length of Stay (Days): 2 GMLOS: 3.9 [facility] [id number] Consult note* Maritza Linn, CERTIFIED RECREATIONAL THERAPIST - OFFICE CORRESPONDENT - 06/15/2024 9:44 AM ESTAssociated Order(s): IP CONSULT TO NEPHROLOGY [facility] Consult Note Reason for Consult/Chief Complaint: SCHUYLER/CKD with CHF exacerbation Consulting MD: Dr. Sergei Mcguire [facility] Outpatient Interpreter And Translator: N/A History of Present Illness: Carlo is [...] any questions or concerns. Maritza Linn APRN, OFFICE CORRESPONDENT [facility], [facility] [phone] office Cosigned by Anand Mccullough MD at [...] of Cr. PVR to r/o urinary retention. [facility] CenterVugrrb32-92-5286 Plan of care note* Care Plan - Emerald Allan RN - 06/15/2024 5:42 AM EST Problem: Knowledge Deficit Goal: Patient/family/caregiver demonstrates understanding of disease process, treatment plan, medications, and discharge instructions Outcome: Progressing Problem: Potential for Compromised Skin Integrity Goal: Skin Integrity is Maintained or Improved Outcome: Progressing Problem: Urinary Incontinence Goal: Perineal skin integrity is maintained or improved Outcome: Progressing [facility] CenterFghgoh69-08-0084 Nurse Note* Emerald Allan RN - 06/15/2024 3:09 AM EST Patient is resting in bed. Bed in low position and locked with call light in reach. [place] [id number] Note* Care Coordination - MICHAEL Kramer - 06/14/2024 2:33 PM EST JOZEF coverage for today. Chart reviewed. Pt discussed in rounds today. Pt is self pay, but has indicates that he will have insurance starting in Jun 2024. Per old chart on 04/28/2024 SW was able to communicated with Christian from [employer]. Financial screening completed with patient this afternoon. Patient was over income for Medicaid program. [employer] referred patient to Hospital Care Assurance Program; application completed and submitted. HCAP will assist with current [facility] and [facility] for up to 3 months if approved. HCAP will not assist with home going prescriptions. SW will follow to assist as needed. [place] [id number] Note* Care Coordination - MICHAEL Kramer - 06/14/2024 2:33 PM EST JOZEF coverage for today. Chart reviewed. Pt discussed in rounds today. Pt is self pay, but has indicates that he will have insurance starting in Jun 2024. Per old chart on 04/28/2024 SW was able to communicated with Christian from [employer]. Financial screening completed with patient this afternoon. Patient was over income for Medicaid program. [employer] referred patient to Hospital Care Assurance Program; application completed and submitted. HCAP will assist with current hospitalization and other [facility] for up to 3 months if approved. HCAP will not assist with home going prescriptions. SW will follow to assist as needed. [facility] CenterVkimxs36-31-3329 Consult note* Angel Luis Morales MD - 06/14/2024 9:04 AM ESTAssociated Order(s): IP CONSULT TO CARDIOLOGY [facility] [place]Electrophysiology Consult Note Reason for Consult/Chief Complaint: Dyspnea, edema Consulting provider: Andrew Established hydraulic corrugating machine operator: Leatha History of Present Illness: Carlo Medina [...] Luis Morales MD DATE of SERVICE: 06/14/2024 [facility] [id number] Plan of care note* Care Plan - [...] integrity is maintained or improved Outcome: Progressing [facility] [id number] History and physical note* Serg Celaya MD [...] min Stress: No Stress Concern Present (04/28/2024) [place] [employer] - Occupational Stress Questionnaire Feeling of Stress : Not at all Recent Concern: Stress - Stress Concern Present (02/28/2024) [place] [employer] - Occupational Stress Questionnaire Feeling of Stress : To some extent Social Connections: Unknown (04/28/2024) Social Connection and Isolation Panel [NHANES] Frequency of Communication with Friends and Family: Once a week Frequency of Social Gatherings with Friends and Family: Once a week Attends Caodaism Services: Patient unable to answer Active Member [...] signed by @[email or web address]@ on @TDNR@ at @NOWNR@ [facility] CenterGffehi59-43-3228 [facility]12-15-2024 History and physical note* Serg Celaya [...] min Stress: No Stress Concern Present (04/28/2024) [place] [employer] - Occupational Stress Questionnaire Feeling of Stress : Not at all Recent Concern: Stress - Stress Concern Present (02/28/2024) [place] [employer] - Occupational Stress Questionnaire Feeling of Stress : To some extent Social Connections: Unknown (04/28/2024) Social Connection and Isolation Panel [NHANES] Frequency of Communication with Friends and Family: Once a week Frequency of Social Gatherings with Friends and Family: Once a week Attends Caodaism Services: Patient unable to answer Active Member [...] signed by @MEMDNR@ on @TDNR@ at @NOWNR@ documented in this [facility]12-15-2024 Emergency department Note* Jono Dubois DO [...] min Stress: No Stress Concern Present (04/28/2024) [place] [employer] - Occupational Stress Questionnaire Feeling of Stress : Not at all Recent Concern: Stress - Stress Concern Present (02/28/2024) [place] [employer] - Occupational Stress Questionnaire Feeling of Stress : To some extent Social Connections: Unknown (04/28/2024) Social Connection and Isolation Panel [NHANES] Frequency of Communication with Friends and Family: Once a week Frequency of Social Gatherings with Friends and Family: Once a week Attends Caodaism Services: Patient unable to answer Active Member [...] 06/13/2024 1:45 PM EST Emergency Department Encounter [facility] PCU 2E Patient: [...] for clarification.) Joel Reyes MD Acute Care [facility] Joel Reyes MD 06/14/24 [id number] * Rosa Gr RN - 06/13/2024 1:45 PM EST Pt presents for abdominal pain starting yesterday. States he vomited earlier today. Denies diarrhea. Also having loss of appetite. Denies urinary symptoms. Also having swelling in BLE x2 weeks. Hx CHF. +fatigue documented in this [facility]12-15-2024 Emergency department Triage note* Rosa Gr RN - 06/13/2024 1:45 PM EST Pt presents for abdominal pain starting yesterday. States he vomited earlier today. Denies diarrhea. Also having loss of appetite. Denies urinary symptoms. Also having swelling in BLE x2 weeks. Hx CHF. +fatigue [facility] CenterFcvvkk50-23-6272 Physician Emergency department Note* Jono Dubois DO [...] min Stress: No Stress Concern Present (04/28/2024) [place] [employer] - Occupational Stress Questionnaire Feeling of Stress : Not at all Recent Concern: Stress - Stress Concern Present (02/28/2024) [place] [employer] - Occupational Stress Questionnaire Feeling of Stress : To some extent Social Connections: Unknown (04/28/2024) Social Connection and Isolation Panel [NHANES] Frequency of Communication with Friends and Family: Once a week Frequency of Social Gatherings with Friends and Family: Once a week Attends Caodaism Services: Patient unable to answer Active Member [...] service for CHF exacerbation. Diagnoses as of 06/13/241699 Acute exacerbation of chronic heart failure (HCC) [...] Medicine Provider Jono Dubois DO Resident 06/13/24 170 Cosigned by Joel Reyes MD at 06/14/2024 2:47 PM EST [employer] Phone: [phone]) 799-808412-15-2024 Physician Emergency department Note* Joel Reyes MD - 06/13/2024 1:45 PM EST Emergency Department Encounter [facility] PCU 2E Patient: [...] for clarification.) Joel Reyes MD Acute Care [facility] Joel Reyes MD 06/14/24 0910 [facility] Phone: [phone] 984-612512-12-2024 Telephone encounter Note* Telephone Encounter - Morgan Ulloa APRN Ninoska FLOREZ - 06/10/2024 11:44 AM EST I called [...] Zhang July 01, 2023 for continued evaluation. [facility] [id number] Miscellaneous Notes* Telephone Encounter - THOMAS Mi [...] his feet and ankles. documented in this encounterSFisher-Titus Medical CenterArfvyg01-36-0716 Telephone encounter Note* Telephone Encounter - Sue Destinee - 06/10/2024 10:37 AM EST Pt called in stating he's been having stomach pains on and off yesterday and wants to know what he should do. He also states he is still having swelling in his feet and ankles. [facility] CenterTsdrsk91-17-3978 History of Present illness Narrative* Morgan Ulloa APRN - VIKKI - 06/08/2024 9:30 AM EST Images from the original note were not included. [facility] Cardiology Office Note DATE of SERVICE: 06/08/24 TIME of SERVICE: 11:12 AM Reason for Visit: Chief Complaint Patient presents with Hospital Follow-up History ofPresent Illness: Carlo Medina is a 44 y.o. male who presents in office today after his admission to [facility] 05/28/2024-06/01/2024. He has a history of newly [...] 30% per transthoracic echo February 2024-appears decompensated, [place] Heart Association functional class III, stage C [...] Chronic kidney disease-creatinine measured 2.05, BUN 37 Tony 3, this appears to be his baseline [...] he please notify our office. Morgan Ulloa APRN/OFFICE CORRESPONDENT documented in this [facility]12-10-2024 Miscellaneous Notes* Addendum Note - Radha Hernandez - 06/08/2024 9:30 AM ESTAddended by: RADHA HERNANDEZ on: 06/08/2024 12:19 PM Modules accepted: Orders documented in this [facility]12-10-2024 Note* Addendum Note - Radha Hernandez - 06/08/2024 9:30 AM ESTAddended by: RADHA HERNANDEZ on: 06/08/2024 12:19 PM Modules accepted: Orders [facility] CenterSozrnb10-92-4329 Note* Addendum Note - Radha Hernandez - 06/08/2024 9:30 AM ESTAddended by: RADHA HERNANDEZ on: 06/08/2024 12:19 PM Modules accepted: Orders [facility] CenterHvkkjn14-44-9204 Telephone encounter Note* Telephone Encounter - Tracy Harris - 06/07/2024 9:53 AM EST Patient unable to pay the 50% at time of appt due to declined hcap and no health insurance. [facility] CenterEcknka40-61-7556 Miscellaneous Notes* Telephone Encounter - Tracy Harris - 06/07/2024 9:53 AM EST Patient unable to pay the 50% at time of appt due to declined hcap and no health insurance. documented in this encounterSFisher-Titus Medical CenterZencou47-68-7586 Telephone encounter Note* Telephone Encounter - Sintia Sosa LPN - 06/04/2024 4:04 PM EST Spoke with the patient and he does not have health insurance nor does he qualify for medicaid or hospital judie per his girlfriend. He has a follow-up appt with cardio on 2023. I did give them the phone number for [facility]. [facility] CenterUoielb24-07-9936 Miscellaneous Notes* Telephone Encounter - Sintia Sosa LPN - 06/04/2024 4:04 PM EST Spoke with the patient and he does not have health insurance nor does he qualify for medicaid or hospital judie per his girlfriend. He has a follow-up appt with cardio on 2023. I did give them the phone number for [facility]. * Telephone Encounter - Kaitlin Gonzalez LPN - 06/04/2024 7:38 AM EST Please contact patient to schedule. * Telephone Encounter - Lore Sarah RN - 06/03/2024 8:20 PM EST Pt needs to establish care with a PCP for an ED follow-up visit as soon as possible for LLE edema. Pt does not have insurance. Message sent to [facility] to follow-up with patient during office hours for scheduling assistance. documented in this encounterSFisher-Titus Medical CenterLhvafm92-65-0689 Telephone encounter Note* Telephone Encounter - Kaitlin Gonzalez LPN - 06/04/2024 7:38 AM EST Please contact patient to schedule. [place] [id number] Emergency department Note* Louise Wakefield RN - 06/03/2024 10:03 PM EST This RN asked if pt wanted to come back into triage to have lucrecia wrap placed. Significant other said, I'll put it on. Pt and significant other left. [address]Khriyy59-17-6422 Emergency department Note* Louise Wakefield RN - [...] stage 3 kidney disease documented in this encounterSumma Wkbxzl65-03-8032 Hospital Discharge instructions* Discharge Instructions* Jia Victor PA-C - 06/03/2024 9:01 PM EST Please follow-up with your hydraulic corrugating machine operator on the as scheduled. You will be [...] prescribed and follow-upas recommended. documented in this [facility]12-05-2024 Telephone encounter Note* Telephone Encounter - Lore Sarah RN - 06/03/2024 8:20 PM EST Pt needs to establish care with a PCP for an ED follow-up visit as soon as possible for LLE edema. Pt does not have insurance. Message sent to [facility] and [facility] to follow-up with patient during office hours for scheduling assistance. [place] [id number] Emergency department Triage note* Belkys Townsend RN - 06/03/2024 6:28 PM EST Pt presents to ED for c/o Bilateral leg swelling since yesterday and was recently diagnosed and admitted for CHF and stage 3 kidney disease [place] [id number] Telephone encounter Note* Telephone Encounter - Kaitlin Gonzalez LPN - 06/03/2024 10:04 AM EST S: Patient admitted to: [facility] 05/28/24 B: Discharged on : 06/01/24 A: Hospital follow up call initiated to discuss any medication changes, follow up appointments and discharge instructions: Metabolic acidosis R: No contact x 1 at : [phone] [facility] CenterEwvpgv06-84-7012 Miscellaneous Notes* Telephone Encounter - Kaitlin Gonzalez LPN - 06/03/2024 10:04 AM EST S: Patient admitted to: [facility] 05/28/24 B: Discharged on : 06/01/24 A: Hospital follow up call initiated to discuss any medication changes, follow up appointments and discharge instructions: Metabolic acidosis R: No contact x 1 at : [phone] documented in this encounterSFisher-Titus Medical CenterMnmggw61-63-9979 Telephone encounter Note* Telephone Encounter - Kalyn Street - 06/02/2024 6:54 PM EST Name of caller: Carlo Contact phone number: [phone] Relationship to Patient: patient Provider: Morgan Ulloa CNP Practice: Cardiology Chief Complaint/Reason for Call: Patient returning call from office. Please call and advise. Best time of day caller can be reached: AM Patient advised that office/PCP has 24-48 business hours to return their call: No [facility] CenterSrdorz09-86-8279 Miscellaneous Notes* Telephone Encounter - Kalyn Street - 06/02/2024 6:54 PM EST Name of caller: Carlo Contact phone number: [phone] Relationship to Patient: patient Provider: Morgan Ulloa CNP Practice: Cardiology Chief Complaint/Reason for Call: Patient returning call from office. Please call and advise. Best time of day caller can be reached: AM Patient advised that office/PCP has 24-48 business hours to return their call: No documented in this [facility]12-03-2024 Nurse Note* More Rojas RN - 06/01/2024 4:40 PM EST Patient discharged to home with all belongings. Iv was removed and heart monitor returned to nursing station. Discahrge paper work reviewed with patient, all questions answered. Patient reluctant to follow up at the offices in [place]. He is agreeable to follow up in [place] if he gets insurance. He was instructed to call for surgical, cardiac, and primary care appointments after discharge. He was also agreeable to oyster picker his new prescripts if they are affordable. [facility] CenterCnadvi88-58-1166 Nurse Note* More Rojas RN - 06/01/2024 4:40 PM EST Patient discharged to home with all belongings. Iv was removed and heart monitor returned to nursing station. Discahrge paper work reviewed with patient, all questions answered. Patient reluctant to follow up at the offices in [place]. He is agreeable to follow up in [place] if he gets insurance. He was instructed to call for surgical, cardiac, and primary care appointments after discharge. He was also agreeable to oyster picker his new prescripts if they are [...] need for daily labs. documented in this [facility]12-03-2024 Hospital Discharge instructions* Discharge Instructions* Mary [...] Everywhere. * Heart Failure Discharge Instructions, Adult (Lithuanian) * DASH Diet (Lithuanian) * How to Weigh Yourself (Lithuanian) documented in this [facility]12-03-2024 Consult note* Steven Bellamy MD - 06/01/2024 3:16 PM ESTAssociated Order(s): IP CONSULT TO GENERAL SURGERY Images from the original note were not included. Attending Attestation [facility] - General Surgery Patient Name: [...] min Stress: No Stress Concern Present (04/28/2024) [place] [employer] - Occupational Stress Questionnaire Feeling of Stress : Not at all Recent Concern: Stress - Stress Concern Present (02/28/2024) [place] [employer] - Occupational Stress Questionnaire Feeling of Stress : To some extent Social Connections: Unknown (04/28/2024) Social Connection and Isolation Panel [NHANES] Frequency of Communication with Friends and Family: Once a week Frequency of Social Gatherings with Friends and Family: Once a week Attends Caodaism Services: Patient unable to answer Active Member [...] Impression Patient Name: CARLO MEDINA : 1980 Exam [...] Ultrasound Melendez sign is positive. Per the isotope technologist, the sonographic Melendez's sign wasnegative. Bile [...] EST Result History US abdomen complete (Order #[id number]) on 05/31/2024 - Order Result History Report [...] data. No Terri risk assessment data. No GENERATION TECHNOLOGIST Request ID assessment data. No GENERATION TECHNOLOGIST traffic observer ID assessment data. Breast Cancer Risk Navigation Events None Signed by Signed Time Phone Pager Joel Hi MD 05/31/2024 16:20 Exam Information Status Exam Begun Exam Ended Final 05/31/2024 15:37 05/31/2024 16:00 External Results Report Open External Results Report Encounter View Encounter Study Details Open Study Details Order Transmittal Tracking US abdomen complete (Order #[id number]) on 05/31/24 Order Report US abdomen complete (Order #[id number]) on 05/31/24 CBC: Recent Labs 05/30/24 1222 [...] 7:30a-4:30p Friday-Friday After hours, please contact physician clinical admissions manager. [facility] Mobile Authentication Phone: [phone]) 102-804912-03-2024 Consult note* Steven Bellamy MD - 06/01/2024 3:16 PM ESTAssociated Order(s): IP CONSULT TO GENERAL SURGERY Images from the original note were not included. Attending Attestation [facility] - General Surgery Patient Name: Carlo Medina [...] min Stress: No Stress Concern Present (04/28/2024) [place] [employer] - Occupational Stress Questionnaire Feeling of Stress : Not at all Recent Concern: Stress - Stress Concern Present (02/28/2024) [place] [employer] - Occupational Stress Questionnaire Feeling of Stress : To some extent Social Connections: Unknown (04/28/2024) Social Connection and Isolation Panel [NHANES] Frequency of Communication with Friends and Family: Once a week Frequency of Social Gatherings with Friends and Family: Once a week Attends Caodaism Services: Patient unable to answer Active Member [...] Result Narrative & Impression Patient Name: CARLO MDEINA : 1980 Exam Date/Time: 05/31/2024 15:37 Procedure: [...] Ultrasound Melendez sign is positive. Per the isotope technologist, the sonographic Melendez's sign wasnegative. Bile [...] Report Dictated on Electronically Signed By: Joel iH MD Electronically Signed Date/Time: 05/31/2024 4:20 PM EST Result History US abdomen complete (Order #[id number]) on 05/31/2024 - Order Result History Report US abdomen complete: Patient Communication Add Comments Not seen Breast Imaging Recommendations Carlo Medina No recommendations exist for this order. Risk Scores No Tyrer-Cuzick assessment data. No Risk Considerations assessment data. No [facility] Guidelines assessment data. No NCCN Miller assessment data. No Risk Explanation Tyrer-Jonnathanck 8 assessment data. No BRCAPRO assessment data. No Myriad risk assessment data. No Boris risk assessment data. No Terri risk assessment data. No GENERATION TECHNOLOGIST Request ID assessment data. No GENERATION TECHNOLOGIST traffic observer ID assessment data. Breast Cancer Risk Navigation Events None Signed by Signed Time Phone Pager Joel Hi MD 05/31/2024 16:20 Exam Information Status Exam Begun Exam Ended Final 05/31/2024 15:37 05/31/2024 16:00 External Results Report Open External Results Report Encounter View Encounter Study Details Open Study Details Order Transmittal Tracking US abdomen complete (Order #[id number]) on 05/31/24 Order Report US abdomen complete (Order #[id number]) on 05/31/24 CBC: Recent Labs 05/30/24 1222 [...] 7:30a-4:30p Friday-Friday After hours, please contact physician clinical admissions manager. * Tahmina Berg RD - 05/29/2024 2:14 [...] muscle mass loss Fluid Accumulation: Mild Extremities Drawing Hand Strength: Not Performed Nutrition Assessment: 44 y.o. [...] On: Kcal/kg Weight Used for Energy Requirements: [place] Weight for Energy Calculation (kg): 84 kg Total Energy Requirements (kcals/day): 4060-5205 (25-30) Weight Used for Protein Requirements: [place] Weight in Kg Used for Protein Requirements: [...] per pt) % Weight Change (Calculated): -12.2 [place] Body Weight (lbs) (Calculated): 184 lbs [place] Body Weight (Kg) (Calculated): 84 kg % [place] Body Weight (Calculated): 97.8 % BMI (kg/m2) [...] outpatient nutrition counseling Tahmina Berg RD Contact: *[phone] or via Secure Chat * Garrick Bearden MD - 05/28/2024 3:25 PM ESTAssociated Order(s): IP CONSULT TO CARDIOLOGY [facility] Heart & [place] [place] [facility] [place] /Electrophysiology Consult Note Reason for Consult/Chief Complaint: Nausea, vomiting, feeling dehydrated Referring provider: [facility] hydraulic corrugating machine operator: Katerin History of Present Illness: Carlo Medina [...] pain, palpitations or syncope. 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 Assessment/Plan HF NYHA Class [...] I recommended that he be transferred to [facility] cardiology service possibly even the heart failure [...] DATE of SERVICE: 05/28/2024 * Maritza Linn, CERTIFIED RECREATIONAL THERAPIST - OFFICE CORRESPONDENT - 05/28/2024 1:28 PM ESTAssociated Order(s): IP CONSULT TO NEPHROLOGY [facility] Nephrology Consult Note Reason for Consult/Chief Complaint: worsening renal function Consulting MD: Dr. Mary Ellen Brito Outpatient Interpreter And Translator: N/A History of Present Illness: Carlo Medina [...] PLT 205 BMP: Recent Labs 05/28/24 0811 NA 141 K 4.6 CL 114* CO2 19* BUN 38* CREATININE 2.06* BNP: Recent Labs 05/28/24 0811 BNP 19,900* UA: unavailable Imaging: Exam Date/Time: [...] any questions or concerns. Maritza Linn APRN, OFFICE CORRESPONDENT [facility], [facility] [phone] office Cosigned by aSul Briones MD at 05/28/2024 2:33 PM EST [...] PRN hydral for now. Saul Briones MD [facility] [phone] documented in this [facility]12-03-2024 Note* Rapid Response Note - Jose Raul Barahona RN - 06/01/2024 1:46 PM EST Labs drawn and given to More Evans at pts bedside [facility] [id number] Note* Rapid Response Note - Jose Raul Barahona RN - 06/01/2024 1:46 PM EST Labs drawn and given to More Rn at pts bedside [facility] [id number] Miscellaneous Notes* Rapid Response Note - Jose Raul Barahona RN - 06/01/2024 1:46 PM EST Labs drawn and given to More Rn at pts bedside * Care Coordination - Dia Gaitan RN - 05/31/2024 9:55 AM EST 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 Pt has been unable to follow up with Cardiology as pt is uninsured. - Per SW note on 04/28, pt has been denied Medicaid as he is over income. - Pt completed an HCAP application on 04/28/24 during a previous hospitalization at [facility]. This RN has made multiple attempts to [...] Will continue to follow. Addendum: Notified by [employer] that [employer] screened the patient over income [...] is improving Outcome: Progressing documented in this [facility]12-03-2024 [facility] 06-01-2024 Hospital course Narrative* Mary Ellen Briot MD - 06/01/2024 1:27 PM EST Hospitalist [...] START taking these medications cholecalciferol 50 MCG (1999 UT) tablet Commonly known as: Vitamin D-3 [...] Your Medications These medications were sent to [facility]/pharmacy #[id number] [place] [address] carvedilol 25 MG tablet cholecalciferol 50 MCG (1999 UT) tablet clopidogrel 75 MG tablet furosemide 40 MG tablet hydrALAZINE 25 MG tablet isosorbide dinitrate 20 MG tablet sodium bicarbonate 650 MG tablet Recommended Follow-up: Sergei Astudillo MD [address] [facility] [address] Follow up The heart failure/cardiology office will call you to scheduled follow-up. [facility] [address] [facility] [address] Follow up If you cannot get insurance, please call [facility] at [phone] and tell them you need follow-up with Dr. Conklin for your heart failure. Maritza Linn, CERTIFIED RECREATIONAL THERAPIST - OFFICE CORRESPONDENT [address] [place] [address] [address] [place] [id number] Follow up in 1 week(s) Steven Bellamy MD [address] [facility] [address] [facility] [address] Schedule an appointment as soon as possible for a visit in 1 week(s) Hospital follow up, HIDA arrangement [facility] Surgery - [place] [address] [facility] [address] Complexity of Follow up: [] Moderate Complexity: follow up within 7-14 calendar days (77393) [x] Severe Complexity: follow up within 7 calendar days (60444) Follow up Testing, Pending results or Referrals at Transitional Care Visit: [x] Yes - MRI pending and patient to follow up with surgrey in one weeks time. [] no Instructions [...] Ellen Brito MD Division of Hospitalist Medicine [facility] 06/01/2024, 3:59 PM documented in this [facility]12-03-2024 Nurse Note* More Rojas RN - [...] of if he is discharged or not. [facility] [id number] History of Present illness Narrative* THOMAS Mi CNP - 06/01/2024 9:59 AM EST [facility] and [facility]ascular [place] [facility] [place] /Electrophysiology Progress Note HPI / Interval History: Carlo Medina, 44 year old male presented to [facility] with shortness of breath, nausea, vomiting and acute decompensated heart failure. He was recently admitted to [facility] and diagnosed with probable NICM- EF-30% per [...] Pt requests to follow up at the [place] office, states he is unable to follow up at [facility] office-it is too far for mygirlfriend to drive. Assessment/Plan HF NYHA Class [] I [x] II [] III [] IV []Unable to assess [] N/A NICM HFrEF- Stage C, Class II, EF 30% per TTE 02/2024 -appears euvolemic on exam today and has no current HF symptoms - pt states he will not follow up at [facility]- too far to drive. Follow up arranged [facility] Cardiology [place] office 06/08/2024 at 9:30 am. - continue [...] care and case management and social work therapist have been consultedto assist with obtaining insurance [...] and SCHUYLER 6. Disposition- follow up arrange [facility] Cardiology [place] office 06/08/2024 at 9:30 am with myself -If he cannot obtain insurance, he can follow-up with Dr. Conklin at [facility] - pt states if possible he does not wish to follow up in the [facility] office due to transportation. Medications: carvedilol, 25 [...] any questions or concerns. Maritza Linn APRN, OFFICE CORRESPONDENT [facility], [facility] [phone] Cosigned by Anand Mccullough MD at 05/31/2024 9:46 PM EST * Mary Ellen Brito MD - 05/31/2024 12:08 PM EST Hospitalist Progress Note 05/31/2024 Subjective: Admit Date: 05/28/2024 PCP: No primary care provider on file. Room#: B2-267/B2-615 B BRIEF HOSPITAL COURSE: ajay is a [...] trying to set him up with discharge administrative assistant receptionist. He was notified that if needed Dr. Sierra operates at [facility] and can follow-up with cardiology as outpatient [...] History: Diagnosis Date CHF (congestive heart failure) ([facility]) Hypercholesteremia Hypertension LABS: CBC: Recent Labs 05/29/24 [...] weights Cardiology consult -recommending possible transfer to [facility] for more invasive cardiovascular workup given the intensity of heart failure and the young age Continue daily labs SCHUYLER and ATN on CKD 3b Obtain urine studies HOLD diuretics and ARN Consider alternative HTN treatment in [facility]. Nephrology consulted Added sodium bicarbonate 650 mg [...] will reapproach cardiology recommendations for transfer to [facility] tomorrow. He was feeling little bit overwhelmed during discussions today, - am labs, replace lytes prn -05/31-patient feeling slightly better than yesterday, to notice some depression, would like to recommend outpatient counselor. He declined at this time. States he does not know how to swallow pills and does not want to be evaluated by QUANTITATIVE RESEARCH ANALYST to see if he can be educated on how to swallow. Will continue to adjust medication monitoring electrolytes. If stable tomorrow with final recommendations for home medication regiment will possibly discharge tomorrow. Cardiology will need to follow-up outpatient and no need to transfer to [facility] anymore - PT/OT/CM/SW - delirium precautions: [...] Ellen Brito MD Division of Hospitalist Medicine [facility] * Lizzette Burger, THOMAS - OFFICE CORRESPONDENT - 05/31/2024 8:11 AM EST [facility] and Vascular [facility] Cardiology /Electrophysiology Progress Note HPI / Interval History: Carlo Medina has a history of recently diagnosed HFrEF likely due to NICM and probable CKD who presented to [facility] with shortness of breath, nausea, vomiting and acute decompensated heart failure. He was hospitalized at [facility] where he had an echocardiogram showing EF [...] - no current need to transfer to [facility] HF service, we can titrate medications and [...] care and case management and social work therapist have been consulted to assist with obtaining [...] standpoint for discharge after abdominal US. Dr. Buggey and HF team will contact patient for [...] that cardiology was requesting to transfer to [facility] for greater workup. At this time [...] weights Cardiology consult -recommending possible transfer to [facility] for more invasive cardiovascular workup given the intensity of heart failure and the young age Continue daily labs SCHUYLER and ATN on CKD 3b Obtain urine studies HOLD diuretics and ARN Consider alternative HTN treatment in [facility]. Nephrology consulted Added sodium bicarbonate 650 mg [...] will reapproach cardiology recommendations for transfer to [facility] tomorrow. He was feeling little bit [...] Discharge - Date - - Location - HOme - Pending the following - clinical improvement Total time spent (which include face to face and non face to face encounters) : 55 minutes Toxic drug monitoring/narrow therapeutic index drug monitoring : # Drug name : NA # Route administered : NA # Method of monitoring : NA Extended Emergency Contact Information Primary Emergency Contact: Cyndy Medinaa Mobile Relation: Sister Secondary Emergency Contact: KurtKaitlin Mobile Relation: Significant Other Mary Ellen Brito MD Division of Hospitalist Medicine [employer] * Maritza VarelaBill Menagene, CERTIFIED RECREATIONAL THERAPIST - OFFICE CORRESPONDENT - 05/30/2024 10:47 AM EST [facility] [...] with any questions or concerns. Maritza Linn, CERTIFIED RECREATIONAL THERAPIST, OFFICE CORRESPONDENT [facility], [facility] [phone] Cosigned by Saul Briones MD at 05/30/2024 2:41 PM EST Associated attestation - Saul Briones MD - 05/30/2024 2:41 PM EST Notes reviewed and plan discussed with the BASE WAD OPERATOR ADJUSTER. Agree with above note except Any variance is noted below. Saul Briones MD [facility] [phone] * THOMAS An CNP - 05/30/2024 7:24 AM EST [facility] and Vascular [facility] Cardiology /Electrophysiology Progress Note HPI / Interval History: Carlo Medina has a history of recently diagnosed HFrEF likely due to NICM and probable CKD who presented to [facility] with shortness of breath, nausea, vomiting and acute decompensated heart failure. He was hospitalized at [facility] where he had an echocardiogram showing EF [...] primary service arrange f/u with patient's outpatient hydraulic corrugating machine operator 1-2 wks. [x] Recommended; unable to arrange at this time, will arrange post-discharge The heart failure clinic will call him to arrange follow-up [] Arranged as follows: If there are any questions/concerns, please contact the covering provider. If no answer by Secure Chat, please call the cardiology office to obtain appropriate covering VIRTUAL REALITY SPECIALIST/physician. Medications: carvedilol, 25 mg, Oral, BID WC [...] file. Room#: B2-267/B2-267 B BRIEF HOSPITAL COURSE: Carlo is a [...] HOLD ARN Consider alternative HTN treatment in [facility]. Nephrology following Metabolic acidosis No insurance for [...] Lyn MD Division of Hospitalist Medicine [facility] * Maritza Linn, CERTIFIED RECREATIONAL THERAPIST - OFFICE CORRESPONDENT - 05/29/2024 9:40 AM EST [facility] [...] any questions or concerns. Maritza Linn APRN, OFFICE CORRESPONDENT [facility], [employer] [phone] Cosigned by Saul Briones MD at 05/29/2024 12:46 PM EST Associated attestation - Saul Briones MD - 05/29/2024 12:46 PM EST Notes reviewed and plan discussed with the PA. Agree with above note except Any variance is noted below. Renal function improving and near baseline. Continue to trend as the patient is diuresed. Saul Briones MD [facility] [phone] * Lizzette Love Burger, CERTIFIED RECREATIONAL THERAPIST - OFFICE CORRESPONDENT - 05/29/2024 7:40 AM EST [facility] and Vascular [facility] Cardiology /Electrophysiology Progress Note HPI / Interval History: Carlo Medina has a history of recently diagnosed HFrEF likely due to NICM and probable CKD who presented to [facility] with shortness of breath, nausea, vomiting and acute decompensated heart failure. 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 Pt has been unable to follow up with Cardiology as pt is uninsured. - Per note on 04/28, pt has been denied Medicaid as he is over income. - Pt completed an HCAP application on 04/28/24 during a previous hospitalization at [facility]. This RN has made multiple attempts to [...] Will continue to follow. Addendum: Notified by [employer] that [employer] screened the patient over income for Medicaid, but did not assist with a Medicaid application for denial. [employer] to go see patient and have him sign forms to apply for Medicaid for denial so HCAP application can be processed. 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 Pt has been unable to follow up with Cardiology as pt is uninsured. - Per note on 04/28, pt has been denied Medicaid as he is over income. - Pt completed an HCAP application on 04/28/24 during a previous hospitalization at [facility]. This RN has made multiple attempts to [...] Will continue to follow. Addendum: Notified by [employer] that [employer] screened the patient over income for Medicaid, but did not assist with a Medicaid application for denial. [employer] to go see patient and have him sign forms to apply for Medicaid for denial so HCAP application can be processed. [facility] [id number] Nurse Note* Kira Santos RN - 05/31/2024 [...] medications and how many he is on. [facility] [id number] Plan of care note* Care Plan - King [place] RN - 05/30/2024 5:48 PM EST Problem: Knowledge Deficit Goal: Patient/family/caregiver demonstrates understanding of disease process, treatment plan, medications, and discharge instructions Outcome: Progressing Problem: Potential for Compromised Skin Integrity Goal: Skin Integrity is Maintained or Improved Outcome: Progressing Problem: Potential for Compromised Skin Integrity Goal: Nutritional status is improving Outcome: Progressing [facility] [id number] Nurse Note* King [place] RN - 05/30/2024 [...] reassured concerns would be addressed to physicians. [facility] [id number] Telephone encounter Note* Telephone Encounter - THOMAS An CNP - 05/30/2024 9:18 AM EST Patient admitted to [facility] with recurrent HF, SCHUYLER and lack of appetite. Mildly volume overloaded. Titration of HF meds difficult to patient resistance. He will need 1-2 week follow-up in HF clinic (he was initially seen by Dr. Astudillo). Please call to schedule. Thanks. [facility] [employer] Work Phone: 1(970) 320-931112-01-2024 Miscellaneous Notes* Telephone Encounter - THOMAS An CNP - 05/30/2024 9:18 AM EST Patient admitted to [facility] with recurrent HF, SCHUYLER and lack of appetite. Mildly volume overloaded. Titration of HF meds difficult to patient resistance. He will need 1-2 week follow-up in HF clinic (he was initially seen by Dr. Astudillo). Please call to schedule. Thanks. documented in this [facility]12-01-2024 Nurse Note* Tita Hernandez RN - 05/30/2024 5:14 AM EST Pt did not want to get stuck for labs and wanted to talk with daytime Dr about need for daily labs. [facility] [id number] Consult note* Tahmina Berg RD - 05/29/2024 2:14 PM EST Associated [...] muscle mass loss Fluid Accumulation: Mild Extremities Drawing Hand Strength: Not Performed Nutrition Assessment: 44 y.o. [...] On: Kcal/kg Weight Used for Energy Requirements: [place] Weight for Energy Calculation (kg): 84 kg Total Energy Requirements (kcals/day): 5424-3545 (25-30) Weight Used for Protein Requirements: [place] Weight in Kg Used for Protein Requirements: [...] per pt) % Weight Change (Calculated): -12.2 [place] Body Weight (lbs) (Calculated): 184 lbs [place] Body Weight (Kg) (Calculated): 84 kg % [place] Body Weight (Calculated): 97.8 % BMI (kg/m2) [...] outpatient nutrition counseling Tahmina Berg RD Contact: *[phone] or via Secure Chat [facility] [id number] Plan of care note* Care Plan - King [place] RN - 05/28/2024 4:04 PM EST Problem: Knowledge Deficit Goal: Patient/family/caregiver demonstrates understanding of disease process, treatment plan, medications, and discharge instructions Outcome: Progressing Problem: Potential for Compromised Skin Integrity Goal: Skin Integrity is Maintained or Improved Outcome: Progressing Problem: Potential for Compromised Skin Integrity Goal: Nutritional status is improving Outcome: Progressing [facility] [id number] Consult note* Garrick Bearden MD - 05/28/2024 3:25 PM ESTAssociated Order(s): IP CONSULT TO CARDIOLOGY [facility] Heart & [place] [place] [facility] [place] /Electrophysiology Consult Note Reason for Consult/Chief Complaint: Nausea, vomiting, feeling dehydrated Referring provider: [facility] hydraulic corrugating machine operator: Katerin History of Present Illness: Carlo Medina [...] pain, palpitations or syncope. 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 Assessment/Plan HF NYHA Class [...] I recommended that he be transferred to [facility] cardiology service possibly even the heart failure [...] Garrick Bearden MD DATE of SERVICE: 05/28/2024 [employer] Work Phone: 1(747) 470-781011-29-2024 History and physical note* Mary Ellen Brito [...] min Stress: No Stress Concern Present (04/28/2024) [place] [employer] - Occupational Stress Questionnaire Feeling of Stress : Not at all Recent Concern: Stress - Stress Concern Present (02/28/2024) [place] [employer] [employer] - Occupational Stress Questionnaire Feeling of Stress : To some extent Social Connections: Unknown (04/28/2024) Social Connection and Isolation Panel [NHANES] Frequency of Communication with Friends and Family: Once a week Frequency of Social Gatherings with Friends and Family: Once a week Attends Caodaism Services: Patient unable to answer Active Member [...] Full Code Anticipated Discharge - Date - 05/30-2 - Location - Home - Pending the [...] - DO NOT do CPR, intubation] [_] [DNR-MANIFEST CLERK - Comfort care only] [_] DNR form [was/was not] signed Summary of discussion: The patient health care POA/ surrogate is the following: Aureila Decker. [Condition that instigated the ACP on [...] Ellen Brito MD Division of Hospitalist Medicine [facility] [id number] [facility]11-29-2024 History and physical note* Mary Ellen Brito [...] min Stress: No Stress Concern Present (04/28/2024) [place] [facility] [employer] [facility] - Occupational Stress Questionnaire Feeling of Stress : Not at all Recent Concern: Stress - Stress Concern Present (02/28/2024) [place] [facility] [facility] - Occupational Stress Questionnaire Feeling of Stress : To some extent Social Connections: Unknown (04/28/2024) Social Connection and Isolation Panel [NHANES] Frequency of Communication with Friends and Family: Once a week Frequency of Social Gatherings with Friends and Family: Once a week Attends Caodaism Services: Patient unable to answer Active Member [...] Full Code Anticipated Discharge - Date - 05/30-2 - Location - Home - Pending the [...] - DO NOT do CPR, intubation] [_] [DNR-MANIFEST CLERK - Comfort care only] [_] DNR form [...] Ellen Brito MD Division of Hospitalist Medicine [facility] documented in this [facility]11-29-2024 Consult note* Maritza Linn, CERTIFIED RECREATIONAL THERAPIST - OFFICE CORRESPONDENT - 05/28/2024 1:28 PM ESTAssociated Order(s): IP CONSULT TO NEPHROLOGY [facility] Consult Note Reason for Consult/Chief Complaint: worsening renal function Consulting MD: Dr. Mary Ellen Brito Outpatient Interpreter And Translator: N/A History of Present Illness: Carlo Medina [...] PLT 205 BMP: Recent Labs 05/28/24 0811 NA 141 K 4.6 CL 114* CO2 19* BUN 38* CREATININE 2.06* BNP: Recent Labs 05/28/24 0811 BNP 19,900* UA: unavailable Imaging: Exam Date/Time: [...] any questions or concerns. Maritza Linn APRN, OFFICE CORRESPONDENT [facility], [facility] [phone] office Cosigned by Saul Briones MD at [...] not recover. PRN hydral for now. Saul Broines MD [facility] [phone] [facility] [id number] NoteSinus tachycardia Probable left atrial enlargement Abnormal R-wave progression, late transition Left ventricular hypertrophy Nonspecific T abnormalities, lateral leads Anterior ST elevation, probably due to LVH Electronically Signed On 05-28-2024 09:01:45 EST by Izaiah Lo [facility] 05-28-2024 NoteSinus tachycardia Probable left atrial enlargement Abnormal R-wave progression, late transition Left ventricular hypertrophy Nonspecific T abnormalities, lateral leads Anterior ST elevation, probably due to LVH Electronically Signed On 05-28-2024 09:01:45 EST by Izaiah Lo [facility] 05-28-2024 Emergency department Note* Chas Torres MD - 05/28/2024 7:59 AM EST [facility] ED EMERGENCY DEPARTMENT ENCOUNTER Pt Name: Carlo [...] min Stress: No Stress Concern Present (04/28/2024) [place] [facility] [employer] - Occupational Stress Questionnaire Feeling of Stress : Not at all Recent Concern: Stress - Stress Concern Present (02/28/2024) [place] [facility] [facility] [employer] [facility] - Occupational Stress Questionnaire Feeling of Stress : To some extent Social Connections: Unknown (04/28/2024) Social Connection and Isolation Panel [NHANES] Frequency of Communication with Friends and Family: Once a week Frequency of Social Gatherings with Friends and Family: Once a week Attends Caodaism Services: Patient unable to answer Active Member [...] 120 (*) Narrative: Performed by: Pam Alvarado [facility], [address] [place] [address] CLIA ID: [id number] CBC WITH AUTO DIFFERENTIAL - Normal Auto [...] from admission for further hydration and monitoring. [facility] contacted to evaluate for admission. to accept. Patient to be admitted. Diagnoses as of 05/28/24 1153 Metabolic acidosis HFrEF (heart failure with reduced ejection fraction) ([facility]) CONSULTS: None hepatic function panel PROCEDURES: Unless otherwise noted below, none Procedures FINAL IMPRESSION 1. Metabolic acidosis 2. HFrEF (heart failure with reduced ejection fraction) ([facility]) DISPOSITION/PLAN DISPOSITION Admit 05/28/2024 11:46:07 AM PATIENT [...] 05/28/2024 7:59 AM EST Emergency Department Encounter [facility] ED Patient: Carlo Medina : 1980 Date [...] for clarification.) Izaiah Martins MD [facility] Care [facility] Izaiah Martins MD 05/28/24 1221 * Michelle [...] he takes every day. documented [facility] this [facility]11-29-[facility]24 Emergency department Triage note* Michelle Potter [...] takes lasix which he takes every day. [facility] [id number] Physician Emergency department Note* Chas Torres MD - 05/28/2024 7:59 AM EST [facility] ED EMERGENCY DEPARTMENT ENCOUNTER Pt Name: Carlo [...] min Stress: No Stress Concern Present (04/28/2024) [place] [facility] - Occupational Stress Questionnaire Feeling of Stress : Not at all Recent Concern: Stress - Stress Concern Present (02/28/2024) [place] [facility] [facility] [employer] - Occupational Stress Questionnaire Feeling of Stress : To some extent Social Connections: Unknown (04/28/2024) Social Connection and Isolation Panel [NHANES] Frequency of Communication with Friends and Family: Once a week Frequency of Social Gatherings with Friends and Family: Once a week Attends Caodaism Services: Patient unable to answer Active Member [...] 120 (*) Narrative: Performed by: Pam Alvarado [facility], [address] [place] [id number] CLIA ID: [id number] CBC WITH AUTO DIFFERENTIAL - Normal Auto [...] from admission for further hydration and monitoring. [facility] contacted to evaluate for admission. to accept. Patient to be admitted. Diagnoses as of 05/28/24 1153 Metabolic acidosis HFrEF (heart failure with reduced ejection fraction) ([facility]) CONSULTS: None hepatic function panel PROCEDURES: Unless otherwise noted below, none Procedures FINAL IMPRESSION 1. Metabolic acidosis 2. HFrEF (heart failure with reduced ejection fraction) ([facility]) DISPOSITION/PLAN DISPOSITION Admit 05/28/2024 11:46:07 AM PATIENT [...] Martins MD at 05/28/2024 12:21 PM EST [facility] [id number] Physician Emergency department Note* Izaiah Martins MD - 05/28/2024 7:59 AM EST Emergency Department Encounter [facility] ED Patient: Carlo Medina : 1980 Date [...] [employer] Izaiah Martins MD 05/28/24 1221 shoutr Work Phone: 1(926) 848-496211-06-2024 Telephone encounter Note* Telephone Encounter - Dia Gaitan RN - 05/05/2024 10:00 AM EST casing crew: As pt called on Friday afternoon with CP, attempted to call [facility] ([phone]) for update on HCAP status but was informed that this dept could not assist. Discussed with Ben Berger [facility] JOZEF who suggested speaking with [facility] Financial Assistance 05/05: According to [facility] [employer] Assistance, pt does not have an application pending. Marcus Carroll, Log Chipper Operator assisting to find a contact at [facility] for an update. 05/10: Still no word on a [facility] contact. Attempting to find contact through Marcus Carroll and Marcus Rubio of [facility] Customer Service. 05/17: No update. Sent request to Log Chipper Operator team. 05/19: Received notification from Mckayla Ray from [facility], it appears current HCAP application isstill pending. 05/31: Pt rehospitalized for ADHF. Message sent to Rayna Carroll check status who reports HCAP (denied 05/19/24) cannot be approved until a formal MD denial is received --> dept now looking to track down pt's Medicaid Notice of Action. Notified by [facility] that [facility] screened the patient over income for Medicaid, but did not assist with a Medicaid application for denial[facility] and have him sign forms to apply for Medicaid for denial so HCAP application can be processed. Will continue to follow. [id number] Miscellaneous Notes* Telephone Encounter - Dia Gaitan RN - 05/05/2024 10:00 AM EST casing crew: As pt called on Friday afternoon with CP, [facility] ([phone][facility] for update on HCAP status but was informed that this dept could not assist. Discussed with Ben Berger [facility] JO[facility] who suggested speaking with [facility] Financial Assistance 05/05: According to [facility] [employer] Assistance, pt does not have an application pending. Marcus Carroll, Log Chipper Operator assisting to find a contact at [facility] for an update. 05/10: Still no word on a [facility] contact. Attempting to find contact through Marcus Carroll and Marcus Rubio of [facility] Customer Service. 05/17: No update. Sent request to Log Chipper Operator team. 05/19: Received notification from Mckayla Ray from [facility], it appears current HCAP application isstill pending. 05/31: Pt rehospitalized for ADHF. Message sent to Rayna Carroll check status who reports HCAP (denied 05/19/24) cannot be approved until a formal MD denial is received --> dept now looking to track down pt's Medicaid Notice of Action. Notified by [facility] that [facility] screened the patient over income for Medicaid, but did not assist with a Medicaid application for denial. [facility] to go see patient today and have him sign forms to apply for Medicaid for denial so HCAP application can be processed. Will continue to follow. documented [facility]11-01-2024 Telephone encounter Note* Telephone Encounter - [...] of Cardiovascular Disease, Division of Heart Failure [facility] Heart and [facility] [place] [facility] Work Phone: 1(670) 358-957811-01-2024 Miscellaneous Notes* Telephone Encounter - Sergei Astudillo [...] of Cardiovascular Disease, Division of Heart Failure [facility] Heart and [facility] [place] documented in this encounterSFisher-Titus Medical [id number] Telephone encounter Note* Telephone Encounter - Dia Gaitan RN - 04/30/2024 3:56 PM EDT HF casing crew: Received notification from [facility] laboratory secretary that pt on the phone reporting [...] me today or tomorrow. Dr. Astudillo updated. [facility] [id number] Miscellaneous Notes* Telephone Encounter - Dia Gaitan RN - 04/30/2024 3:56 PM EDT HF casing crew: Received notification from [facility] laboratory secretary that pt on the phone reporting [...] tomorrow. Dr. Astudillo updated. documented [facility]10-31-2024 Telephone encounter Note* Telephone Encounter - Dia Gaitan RN - 04/29/2024 10:04 AM EDT HF casing crew: Confirmed with [facility] that pt able to be scheduled once HCAP is approved. Call to [employer] ([phone]) to discuss pending HCAP application which was completed on 04/28. Per Billing, application should be processed within 4-6 weeks max. Pt still without PCP and previously declinedscheduling in the [facility]. Pt is a high readmission risk, has been admitted 3x for HF since February. Will continue to follow chart and schedule HFC follow up as soon as able. [facility] [id number] Miscellaneous Notes* Telephone Encounter - Dia Gaitan RN - 04/29/2024 10:04 AM EDT HF casing crew: Confirmed with [facility] that pt able to be scheduled once HCAP is approved. Call to [email or web address] ([phone]) to discuss pending HCAP application which was completed on 04/28. Per Billing, application should be processed within 4-6 weeks max. Pt still without PCP and previously [facility]scheduling in the [facility]. Pt is a high readmission risk, has been admitted 3x for HF since February. Will continue to follow chart and schedule HFC follow up as soon as able. [facility]10[facility]30-[facility]24 Miscellaneous Notes* Care Coordination - MICHAEL Addison - 04/28/2024 3:06 PM EDT CDU SW follow up. Communicated with Christian from [facility]. Financial screening completed with patient this afternoon. Patient was over income for Medicaid program. [facility] referred patient to Hospital Care Assurance Program; application completed and submitted. HCAP will assist with current [facility] and other [facility] encounters for up to 3 months if approved. HCAP will not assist with home going prescriptions. * Care Coordination - MICHAEL Addison - 04/28/2024 1:50 PM EDT CDU SW follow up. Patient discussed in morning rounds with CDU provider, staff radiologist and TCC. Patient uninsured. SW reached out to [facility] truck sales representative Christian to determine if agency received referral from [facility] Procedure Writer (FC) to see patient/complete financial screening. Per [facility], agencyhas not received referral. SW reached out to [facility] Procedure Writer Jose to review. After review, FC decided to refer to [facility] this afternoon. Await outcome of [facility]'s financial screening. Per CDU provider, patient may be released this afternoon. Provider concerned about patient's ability to pay for home-going meds. Good Rx card given to CDU provider who will pass on to patient. Pending outcome of [facility]'s financial screening and cost of prescriptions, patient may be eligible for medication assistance through [facility]'s Indigent Fund. SW following. * Care Coordination - Dia Gaitan, RN - 04/28/2024 10:00 AM EDT 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 Pt receiving treatment for acute on chronic HFrEF. Pt newly diagnosed with HFrEF in 02/2024 and has been unable to attend any follow up d/t lack of insurance coverage and inability to self pay. Since diagnosis, multiple unsuccessful attempts have beenmade by this RN to connect pt with SW in the [facility] and to confirm insurance status. - Spoke [...] Practice Guidelines and references available on the [facility] Heart Failure resource page (Resources --> [facility] --> Heart Failure) Established Bun Panner: None Follow up scheduled within 14 days: TBD- pending insurance/financial assistance. Recommend HF ISAAC. LVEF evaluation within the past 12 months: Yes NYHA class documentation by provider: Yes HF order set used: Yes Daily weight ordered:Yes Intake and output ordered: Yes HF education added: Yes HF care plan added: Yes Class 1 HFrEF GDMT (Treatment pathway available on [facility] Heart Failure resource page) LUCRECIA/ARB/ARNI: Yes, losartan 100mg daily BB: Yes, carvedilol 6.25mg BID MRA: Yes, spironolactone 25mg daily SGLT2-I: No- if financial assistance able to be obtained for follow up and medications, recommend dapagliflozin 10mg daily (HFrEF, per last Cardiology note- probable CKD) Diuretic: Yes, 60mg IV lasix BID (FURNACE COMBUSTION ANALYST 80mg furosemide daily) If pt has been [...] / present: No IV Venofer recommended: TBD ENGINE DYNAMOMETER TESTER-D Appropriateness Screen (Referral pathway available on [facility] Heart Failure resource page) LVEF < 35%: [...] these barriers include n/a. [facility]10[facility]30-[facility] Note* Care Coordination - MICHAEL Addison - 04/28/2024 3:06 PM EDT CDU SW follow up. Communicated with Christian from [employer]. Financial screening completed with patient this afternoon. Patient was over income for Medicaid program. [facility] referred patient to Hospital Care Assurance Program; application completed and submitted. HCAP will [facility] for up to 3 months if approved. HCAP will not assist with home going prescriptions. [facility] [id number] Note* Care Coordination - MICHAEL Addison - 04/28/2024 3:06 PM EDT CDU SW follow up. [facility] Financial screening completed with patient this afternoon. Patient was over income for Medicaid program. [facility] referred patient to Hospital Care Assurance Program; application completed and submitted. HCAP will assist with current [facility]izat [facility] for up to 3 months if approved. HCAP will not assist with home going prescriptions. [facility] [id number] Nurse Note* Jillian Ferguson RN - 04/28/2024 3:02 PM EDT Discharge instructions given to and reviewed in detail with patient and his significant other. Patient verbalized understanding of all discharge instructions, all questions answered at the best of myability at this time. [facility] [id number] Nurse Note* Jillian Ferguson RN - 04/28/2024 3:02 PM EDT Discharge instructions given to and reviewed in detail with patient and his significant other. Patient verbalized understanding of all discharge instructions, all questions answered at the best of myability at this time. * Jillian Ferguson RN - 04/28/2024 10:09 AM EDT Notified Karrie BASE WAD OPERATOR ADJUSTER CDU patient reported 2/10 chest pain, STAT EKG obtained. Karrie read EKG and stated it's okay, chronic findings. Administer nitroglycerin prn and morphine prn. documented in this encounterSFisher-Titus Medical [id number] Consult note* MICHAEL Addison - 04/28/2024 2:09 PM EDTAssociated Order(s): IP CONSULT TO SOCIAL WORK SW consult received today from Dia Gaitan RN, Uninsured, unable to pay out of pocket for follow up appointments- was denied MD in Feb because did not provide pay stubs. See SW progress note(s). [facility] [id number] [facility]10-30-2024 Consult note* MICHAEL Addison - 04/28/2024 [...] AM EDTAssociated Order(s): IP CONSULT TO CARDIOLOGY [facility] [place] [facility] [place] /Electrophysiology Consult Note Reason for Consult/Chief Complaint: CHF Referring provider: Dr. Maya Established hydraulic corrugating machine operator: None History of Present Illness: Carlo Medina [...] D-dimer, normal [place] [address] [place]/mL. CTA was negative for PE, but [...] with cardiology outpatient--would like to establish near [place], [place]--and does not have PCP due to lack of health insurance and is currently in process of trying to enroll into Medicaid. Assessment/Plan HF NYHA Class [] I [x] II [] III [] IV []Unable to assess Heart failure with reduced ejection fraction Hypertension; uncontrolled - Echo from 02/29/2024 shows EF 30%, global hypokinesis, diastolic dysfunction, [place] [address] pg/mL (~9,000 during 02/2024 admission) and pleural [...] thereafter - Establish with outpatient cardiology (near [place]). Social work following to help patient acquire [...] TROPONINI 0.020 0.025 0.032 Recent Labs 04/28/24 0331 WBC 8.0 HGB 12.1* HCT 36.0* MCV [...] of Cardiovascular Disease, Division of Heart Failure [facility] Heart [facility] [place] 4:05 PM 04/28/24 [facility]30-[facility] Note* Care Coordination - MICHAEL Addison - 04/28/2024 1:50 PM EDT CDU SW follow up. Patient discussed in morning rounds with CDU provider, staff radiologist and TCC. Patient uninsured. SW reached out to [facility] truck sales representative Christian to determine if agency received referral from [facility] Procedure Writer (FC) to see patient/complete financial screening. Per [facility], agencyhas not received referral. SW reached out to [facility] Procedure Writer Jose to review. After review, FC decided to refer to [facility] this afternoon. Await outcome of [facility]'s financial screening. Per CDU provider, patient may be released this afternoon. Provider concerned about patient's ability to pay for home-going meds. Good Rx card given to CDU provider who will pass on to patient. Pending outcome of [facility]'s financial screening and cost of prescriptions, patient may be eligible for medication assistance through [facility] [employer] [address] [employer]. SW following. [facility] [id number] Note* Care Coordination - MICHAEL Addison - 04/28/2024 1:50 PM EDT CDU SW follow up. Patient discussed in morning rounds with CDU provider, staff radiologist and TCC. Patient uninsured. JOZEF reached out to [facility] truck sales representative Christian to determine if agency received referral from [facility] Procedure Writer (FC) to see patient/complete financial screening. Per [facility], agencyhas not received referral. SW reached out to [facility] Procedure Writer Jose to review. After review, FC decided to refer to [facility] this afternoon. Await outcome of [facility]'s financial screening. Per CDU provider, patient may be released this afternoon. Provider concerned about patient's ability to pay for home-going meds. Good Rx card given to CDU provider who will pass on to patient. Pending outcome of [facility]'s financial screening and cost of prescriptions, patient may be eligible for medication assistance through [facility]'s Indigent Fund. SW following. [facility] [id number] Hospital Discharge instructions* Discharge Instructions* Dia Gaitan RN - 04/28/2024 10:28 AM EDT My Heart Failure Action Plan Use the below chart as a guide for daily symptom monitoring after you obtain your morning weight. My Bun Panner: [facility] Cardiology [phone] My Diagnosis: Heart failure with reduced ejection fraction My Ejection Fraction: ~30% in 02/2024 NORMAL 50-65% My Exercise Goal: as tolerated My Weight Goal: Standing weight day of hospital discharge Weigh yourself daily using the same scale. If you gain more than 3 pounds in 24 hours or 5 pounds in a week Call your Bun Panner!! My Diet Goal: General diet recommendations for [...] Everywhere. * Heart Failure Discharge Instructions, Adult (Lithuanian) [facility]30-[facility] Nurse Note* Jillian Ferguson RN - 04/28/2024 10:09 AM EDT Notified Karrie BASE WAD OPERATOR ADJUSTER CDU patient reported 2/10 chest pain, STAT EKG obtained. Karrie read EKG and stated it's okay, chronic findings. Administer nitroglycerin prn and morphine prn. [facility] [id number] Note* Care Coordination - Dia Gaitan RN - 04/28/2024 10:00 AM EDT 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 Pt receiving treatment for acute on chronic HFrEF. Pt newly diagnosed with HFrEF in 02/2024 and has been unable to attend any follow up d/t lack of insurance coverage and inability to self pay. Since diagnosis, multiple unsuccessful attempts have beenmade by this RN to connect pt with SW in the [facility] and to confirm insurance status. - Spoke with pt this AM, was denied in Feb because pt did [...] Practice Guidelines and references available on the [facility] Heart Failure resource page (Resources --> [facility] --> Heart Failure) Established Bun Panner: None Follow up scheduled within 14 days: TBD- pending insurance/financial assistance. Recommend HF ISAAC. LVEF evaluation within the past 12 months: Yes NYHA class documentation by provider: Yes HF order set used: Yes Daily weight ordered:Yes Intake and output ordered: Yes HF education added: Yes HF care plan added: Yes Class 1 HFrEF GDMT (Treatment pathway available on [facility] Heart Failure resource page) LUCRECIA/ARB/ARNI: Yes, losartan 100mg daily BB: Yes, carvedilol 6.25mg BID MRA: Yes, spironolactone 25mg daily SGLT2-I: No- if financial assistance able to be obtained for follow up and medications, recommend dapagliflozin 10mg daily (HFrEF, per last Cardiology note- probable CKD) Diuretic: Yes, 60mg IV lasix BID (FURNACE COMBUSTION ANALYST 80mg furosemide daily) If pt has been [...] / present: No IV Venofer recommended: TBD ENGINE DYNAMOMETER TESTER-D Appropriateness Screen (Referral pathway available on [facility] Heart Failure resource page) LVEF < 35%: Yes, pt will require LVEF reassessment after ~ 90 days of optimal GDMT +probable ischemic evaluation. Cardiac Rehab - N/A, uninsured Heart Failure Triggers for Consult to Palliative Care > 2 admissions in the last 12 months for ADHF: Yes [facility] [id number] Note* Care Coordination - Dia Gaitan RN - 04/28/2024 10:00 AM EDT 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 Pt receiving treatment for acute on chronic HFrEF. Pt newly diagnosed with HFrEF in 02/2024 and has been unable to attend any follow up d/t lack of insurance coverage and inability to self pay. Since diagnosis, multiple unsuccessful attempts have beenmade by this RN to connect pt with SW in the [facility] and to confirm insurance status. - Spoke [...] Practice Guidelines and references available on the [facility] Heart Failure resource page (Resources --> [facility] --> Heart Failure) Established Bun Panner: None Follow up scheduled within 14 days: TBD- pending insurance/financial assistance. Recommend HF ISAAC. LVEF evaluation within the past 12 months: Yes NYHA class documentation by provider: Yes HF order set used: Yes Daily weight ordered:Yes Intake and output ordered: Yes HF education added: Yes HF care plan added: Yes Class 1 HFrEF GDMT (Treatment pathway available on [facility] Heart Failure resource page) LUCRECIA/ARB/ARNI: Yes, losartan 100mg daily BB: Yes, carvedilol 6.25mg BID MRA: Yes, spironolactone 25mg daily SGLT2-I: No- if financial assistance able to be obtained for follow up and medications, recommend dapagliflozin 10mg daily (HFrEF, per last Cardiology note- probable CKD) Diuretic: Yes, 60mg IV lasix BID (FURNACE COMBUSTION ANALYST 80mg furosemide daily) If pt has been [...] / present: No IV Venofer recommended: TBD ENGINE DYNAMOMETER TESTER-D Appropriateness Screen (Referral pathway available on [facility] Heart Failure resource page) LVEF < 35%: Yes, pt will require LVEF reassessment after ~ 90 days of optimal GDMT +probable ischemic evaluation. Cardiac Rehab - N/A, uninsured Heart Failure Triggers for Consult to Palliative Care > 2 admissions in the last 12 months for ADHF: Yes [facility] [id number] [facility]10-30-2024 Consult note* Rupesh Troy MD - 04/28/2024 8:42 AM EDTAssociated Order(s): IP CONSULT TO CARDIOLOGY [facility] [place] [facility] [place]Electrophysiology Consult Note Reason for Consult/Chief Complaint: CHF Referring provider: Dr. 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 CTA was negative for PE, but [...] with cardiology outpatient--would like to establish near [place], [place]--and does not have PCP due to lack of health insurance and is currently in process of trying to enroll into Medicaid. Assessment/Plan HF NYHA Class [] I [x] II [] III [] IV []Unable to assess Heart failure with reduced ejection fraction Hypertension; uncontrolled - Echo from 02/29/2024 shows EF 30%, global hypokinesis, diastolic dysfunction, normal [place] [address] pg/mL (~9,000 during 02/2024 admission) and pleural [...] thereafter - Establish with outpatient cardiology (near [place]). Social work following to help patient acquire [...] of Cardiovascular Disease, Division of Heart Failure [facility] Heart and Vascular [place] 4:05 PM 04/28/24 [facility] Work Phone: [phone]) 838-214210-30-2024 Plan of care note* Care Plan - [...] Recommendations to address these barriers include n/a. [facility] [id number] Emergency department Note* Regina Hogan RN - 04/28/2024 6:51 AM EDT Phoned [facility] CDU. Hand off report given. [facility] [id number] Emergency department Note* Regina Hogan RN - 04/28/2024 6:51 AM EDT Phoned [facility]. Hand off report given. * Regina Hogan RN - 04/28/2024 6:37 AM EDT Phoned [facility] ED. No answer. * Regina Hogan RN [...] 30 min Stress: Stress Concern Present (02/28/2024) [facility] [employer] - Occupational Stress Questionnaire Feeling of Stress : To some extent Social Connections: Unknown (02/28/2024) Social Connection and Isolation Panel [NHANES] Frequency of Communication with Friends and Family: Once a week Frequency of Social Gatherings with Friends and Family: Once a week Attends Caodaism Services: Patient unable to answer Active Member [...] able to answer questions and follow commands registered clinical dietitian II-XII normal Normal 5/5 strength and normal [...] In compliance with this authorization, please visit www.fda.gov/media/946537/download or www.fda.gov/media/170015/download to access the applicable information sheets. GROUP [...] injection 4 mg (4 mg IntraVENous Given 04/28/2448) SCREENINGS HEART Score History: Slightly suspicious ECG: [...] of the abdomen. This gives him a [facility] thoracic aortic dissection screening score of 0 [...] external records from past medical records in [facility] to obtain collateral history. The patient will [...] or greater than the risk of discharge. [id number] SHARED DECISION MAKING: I discussed my risk assessment with the patient. The patient understands and consents to the risk of disposition/plan, as well as the risk of uncertainty in estimating outcomes. [id number] PROCEDURES: Unless otherwise noted below, none Procedures EKG: I read and interpreted this EKG. My interpretation can be found in the [facility] EKG system. EKG shows NSR, LAD, normal DE QRS and QTC intervals. LVH. ST depressions [...] 0.020 [place] [address]. This is higher than the patient's other [...] labs done upon arrival. Patient placed on engine monitor. documented in this encounterSFisher-Titus Medical [id number] Emergency department Note* Regina Hogan RN - 04/28/2024 6:37 AM EDT Phoned [facility] ED. No answer. [facility] [id number] Emergency department Note* Regina Hogan RN - 04/28/2024 6:33 AM EDT Patient signed transfer papers and instructions given to patient and significant other. Patient traveling by private vehicle. IV wrapped in coban. [facility] [id number] Emergency department Triage note* Regina Hogan RN [...] labs done upon arrival. Patient placed on engine monitor. [facility] [id number] Physician Emergency department Note* Juan Carlos Le [...] 30 min Stress: Stress Concern Present (02/28/2024) [employer] [facility] - Occupational Stress Questionnaire Feeling of Stress : To some extent Social Connections: Unknown (02/28/2024) Social Connection and Isolation Panel [NHANES] Frequency of Communication with Friends and Family: Once a week Frequency of Social Gatherings with Friends and Family: Once a week Attends Caodaism Services: Patient unable to answer Active Member [...] able to answer questions and follow commands registered clinical dietitian II-XII normal Normal 5/5 strength and normal [...] In compliance with this authorization, please visit www.fda.gov/media/445055/download or www.fda.gov/media/828127/download to access the applicable information sheets. GROUP [...] injection 15 mg (15 mg IntraVENous Given 04/28/24 0332) furosemide (Lasix) injection 60 mg (60 mg [...] of the abdomen. This gives him a [facility] thoracic aortic dissection screening score of 0 [...] external records from past medical records in [facility] to obtain collateral history. The patient will [...] or greater than the risk of discharge. [id number] SHARED DECISION MAKING: I discussed my risk assessment with the patient. The patient understands and consents to the risk of disposition/plan, as well as the risk of uncertainty in estimating outcomes. [id number] PROCEDURES: Unless otherwise noted below, none Procedures EKG: I read and interpreted this EKG. My interpretation can be found in the [employer] EKG system. EKG shows NSR, LAD, normal DE QRS and QTC intervals. LVH. ST depressions [...] 0.020 [place] [address]. 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 Pt with a new diagnosis of HFrEF in 02/2024 and has not been able to follow up with Cardiology d/t lack of insurance and inability to self-payfor appt. Per pt report, MD application was filled out mid-February. HFN attempted previously to get pt an appt with the [facility] to work with SW and pt declined. Left HIPAA compliant VM requesting a return call to discuss. 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 Pt with a new diagnosis of HFrEF in 02/2024 and has not been able to follow up with Cardiology d/t lack of insurance and inability to self-payfor appt. Per pt report, MD application was filled out mid-February. HFN attempted previously to get pt an appt with the [facility] to work with SW and pt declined. Left HIPAA compliant VM requesting a return call to discuss. documented in this encounterSFisher-Titus Medical CenterUgnagr14-84-4847 Telephone encounter Note* Telephone Encounter - Sangeeta Sandhu - 04/14/2024 9:30 AM EDT LMOM requesting return call, gave [facility] phone number also [facility] [id number] Miscellaneous Notes* Telephone Encounter - Sangeeta Sandhu - 04/14/2024 9:30 AM EDT LMOM requesting return call, gave [facility] phone number also * Telephone Encounter - Sangeeta Sandhu - 03/31/2024 9:23 AM EDT Lmom return call, if no insurance yet may be seen at [facility] with Dr Conklin. Will give number [phone] if needed * Telephone Encounter - Jeffrey Conklin MD - 03/16/2024 10:58 AM EDT Will call back documented in this [facility]10-02-2024 Telephone encounter Note* Telephone Encounter - Sangeeta Sandhu - 03/31/2024 9:23 AM EDT Lmom return call, if no insurance yet may be seen at [facility] with Dr Conklin. Will give number [phone] if needed [facility] [id number] Miscellaneous Notes* Telephone Encounter - Sangeeta Sandhu - 03/31/2024 9:23 AM EDT Lmom return call, if no insurance yet may be seen at [facility] with Dr Conklin. Will give number [phone] if needed * Telephone Encounter - Jeffrey Conklin MD - 03/16/2024 10:58 AM EDT Will call back documented in this [facility]09-17-2024 Telephone encounter Note* Telephone Encounter - Jeffrey Conklin MD - 03/16/2024 10:58 AM EDT Will call back [facility] [employer] [facility] Phone: [phone] Miscellaneous Notes* Telephone Encounter - Jeffrey Conklin MD - 03/16/2024 10:58 AM EDT Will call back documented in this [facility]09-09-2024 Telephone encounter Note* Telephone Encounter - YAZAN Danielle - 03/08/2024 2:40 PM EDT [facility] NICKY reached out to schedule Hospital Follow up appointment. [facility] SWWiley offered assistance with financial assistance program until his Medicaid was active. Pt declined, stating he wants to wait untilhis Medicaid is active before scheduling a follow up. [facility] [id number] Miscellaneous Notes* Telephone Encounter - YAZAN Danielle - 03/08/2024 2:40 PM EDT [facility] NICKY reached out to schedule Hospital Follow up appointment. [facility] SWWiley offered assistance with financial assistance program until his Medicaid was active. Pt declined, stating he wants to wait untilhis Medicaid is active before scheduling a follow up. 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 Call to pt this AM to discuss insurance coverage- was notified by [facility] office that when attempting to schedule, pt reported being self pay. Appt was not able to be scheduled. At time of this phone call, pt in the car on the way to [place] [employer] [facility] [employer] [facility] to see if currently does have active Medicaid, and if not, to complete application. Pt to return call to [facility] with update. 13:25: Call back from pt- no current Medicaid coverage, application submitted today. Pt is unable to pay out of pocket for visit with Mona Marcano NP with Cardiology on 03/11- [facility] cancelled appt. Pt also has no PCP. Pt ok with chart being forwarded to [facility] to schedule and appt to establishcare and for SW to review. If able, pt should be seen within 14 days of hospital discharge in the [facility]. Once insurance obtained, pt should be scheduled in the HF. documented in this [facility]09-09-2024 Telephone encounter Note* Telephone Encounter - Dia Gaitan RN - 03/08/2024 11:06 AM EDT casing crew: Noted pt re-admitted 03/05-03/07 for ADHF. Call to pt this AM to discuss insurance coverage- was notified by [facility] office that when attempting to schedule, pt reported being self pay. Appt was not able to be scheduled. At time of this phone call, pt in the car on the way to [place] [employer] [facility] to see if currently does have active Medicaid, and if not, to complete application. Pt to return call to [facility] with update. 13:25: Call back from pt- no current Medicaid coverage, application submitted today. Pt is unable to pay out of pocket for visit with Mona Marcano NP with Cardiology on 03/11- [facility] cancelled appt. Pt also has no PCP. Pt ok with chart being forwarded to [facility] to schedule and appt to establishcare and for SW to review. If able, pt should be seen within 14 days of hospital discharge in the [facility]. Once insurance obtained, pt should be scheduled in the HF. [facility] [id number] Hospital Discharge instructions* Discharge Instr - Activity* [...] Contact: Kaitlin Hicks Mobile Relation: Significant Other Past Surgical History: [...] 6.4 oz) Mental Status: {ROBERT Patient Mental Status:85957} IV Access: {ROBERT IV Access:90408} Nursing Mobility/ADLs: Walking {EMELY ADL:::Independent} Transfer {EMELY ADL:::Independent} Bathing {EMELY ADL:::Independent} Dressing {EMELY ADL:::Independent} Toileting {EMELY ADL:::Independent} Feeding {EMELY ADL:::Independent} Salt Plant Operator {EMELY ADL:::Independent} Med Delivery {yes/no:25863} Wound Care Documentation and Therapy: Elimination: Continence: Bowel: {yes/no:} Bladder: {yes/no:} Urinary Catheter: {ROBERT Urinary Catheter:72133} Colostomy/Ileostomy/Ileal Conduit: {YES / NO:} Date of Last BM: Intake/Output Summary (Last 24 hours) at 03/07/2024 1326 Last data filed at 03/07/2024 0634 Gross per 24 hour Intake 250 ml Output 1125 ml Net -875 ml I/O last 3 completed shifts: In: 550 (6.5 mL/kg) [P.O.:550] Out: 2375 (28.1 mL/kg) [Urine:2375 (0.8 mL/kg/hr)] Weight: 84.5 kg Safety Concerns: {ROBERT Safety Concerns:69764} Impairments/Disabilities: {ROBERT Impairments/Disabilities:68200} Nutrition Therapy: Current Nutrition Therapy: {ROBERT Diet List:25564} Routes of Feeding: {routes of feedin} Liquids: {liquid consistency:42264} Daily Fluid Restriction: {daily fluid restriction:06965} Last Modified Barium Swallow with Video (Video Swallowing Test): {done not done:97767} Treatments at the Time of Hospital Discharge: Respiratory Treatments: Oxygen Therapy: {Therapy; copd oxygen:06910} Ventilator: {ROBERT Ventilator:38644} Rehab Therapies: {GEN THERAPY DISCIPLINE SCAL:2822156} Weight Bearing Status/Restrictions: {POD WEIGHT BEARIN} Other Medical Equipment (for information only, NOT a DME order): {Assistive Devices DME:37834} Other Treatments: Patient's personal belongings (please select all that are sent with patient): {ROBERT Patient Belongings:88202} RN SIGNATURE: {E-signature:34120} CASE MANAGEMENT/SOCIAL WORK SECTION Inpatient Status Date: Discharging to Facility/ Agency Name: Address: Phone: Fax: Dialysis Facility (if applicable) Name: Address: Dialysis Schedule: Phone: Fax: Quality Control Engineer/Chargeback Specialist signature: {E-signature:71798} PHYSICIAN SECTION Name: Carlo Medina Prognosis: {Rehab Prognosis:03266} Condition at Discharge: {Patient Condition:20198} Rehab Potential (if transferring to Rehab): {Rehab Prognosis:04317} Recommended Labs or Other Treatments After Discharge: The individual is being admitted to a nursing facility directly from an [facility] or a unit of a [facility] that is not operated by or licensed by [facility] under section 5119.14 or 5160-3-15.1 5 The individual requires the level of services provided by a nursing facility for the condition for which he or she was treated in the hospital and, Physician Certification: I certify the above information and transfer of Carlo Medina is necessary for the continuing treatment of the diagnosis listed and that he requires {ROBERT Level of Care:84126} for {greater less than:75578} 30 days. Update Admission H&P: {ROBERT Changes in H&P:54281} PHYSICIAN SIGNATURE: {E-signature:91201} documented in this [facility]09-08-2024 Consult note* Tahmina Berg RD - [...] +appetite/ tolerating meals at this time. Diet Rock Crusher Operator to monitor and follow up Tahmina Berg RD Contact Number: *[phone] or via Secure Chat [facility] [id number] Consult note* Tahmina Berg RD - 03/07/2024 [...] +appetite/ tolerating meals at this time. Diet Rock Crusher Operator to monitor and follow up Tahmina Berg RD Contact Number: *[phone] or via Secure Chat * Jeffrey Conklin MD - 03/06/2024 1:11 PM EDTAssociated Order(s): IP CONSULT TO CARDIOLOGY Images from the original note were not included. [facility] [address] [place] [address] Dept: [phone] 44-year-old man seen for newly diagnosed heart [...] is generally preferred. RBC documented in this [facility]09-08-2024 [facility] 03-07-2024 Hospital course Narrative* Guadalupe Celaya MD [...] Your Medications These medications were sent to [facility]/pharmacy [place] [address] carvedilol 6.25 MG tablet furosemide 80 MG tablet losartan 100 MG tablet rosuvastatin 10 MG tablet spironolactone 25 MG tablet DIET: Adult diet Regular; Low Sodium (2 gm) ACTIVITY: No restriction. COMPLEXITY OF FOLLOW UP: [x] Moderate Complexity: follow up within 7-14 calendar days (37692) [] Severe Complexity: follow up within 7 calendar days (80665) FOLLOW UP TESTING, PENDING RESULTS OR REFERRALS [...] frame. DISCHARGE TIME: > 30 minutes SIGNED: Guadalupe Celaya MD 03/07/2024, 1:09 PM documented in this [facility]09-08-2024 Plan of care note* Care Plan - Ruby Powers RN - 03/07/2024 12:18 PM EDT The patient is Moderately Stable - Low risk of patient condition declining or worsening The patient's goals for the shift include rest The clinical goals for the shift include comfort [facility] [id number] Miscellaneous Notes* Care Plan - Ruby Powers [...] these barriers include . documented in this [facility]09-08-2024 History of Present illness Narrative* Jeffrey Conklin MD - 03/07/2024 12:04 PM EDT Images from the original note were not included. [facility] [address] [facility] [place] [address] Dept: [phone] This is a 44-year-old man that we [...] go home today. RBC documented in this encounterSFisher-Titus Medical CenterSckmla34-91-3744 Plan of care note* Care Plan - [...] Recommendations to address these barriers include . [facility] CenterZahpvz50-15-9629 Consult note* Jeffrey Conklin MD - 03/06/2024 1:11 PM EDTAssociated Order(s): IP CONSULT TO CARDIOLOGY Images from the original note were not included. [facility] [address] [place] [address] Dept: [phone] 44-year-old man seen for newly diagnosed heart [...] a coronary CTA is generally preferred. RBC [facility] CenterSkuklj08-66-3753 History and physical note* Guadalupe Celaya MD [...] 30 min Stress: Stress Concern Present (02/28/2024) [employer] - Occupational Stress Questionnaire Feeling of Stress : To some extent Social Connections: Unknown (02/28/2024) Social Connection and Isolation Panel [NHANES] Frequency of Communication with Friends and Family: Once a week Frequency of Social Gatherings with Friends and Family: Once a week Attends Caodaism Services: Patient unable to answer Active Member [...] AdamIndira Mobile Relation: Sister Secondary Emergency Contact: KurtKaitlin Mobile Relation: Significant Other [employer] Carlo Medina : 1980 Primary Care Physician: No primary care provider on file. The patient and/or family/surrogate voluntarily agreed to participate in ACP services. Patient s cognitive capacity: Code Status: [x] [FULL CODE - Continue all advanced life support: CPR,intubation,invasive procedures] [_] [DNR-CCA - DO NOT do CPR, intubation] [_] [DNR-MANIFEST CLERK - Comfort care only] [_] DNR form [...] Guadalupe Celaya MD Division of Hospitalist Medicine [facility] [id number] [facility]09-07-2024 History and physical note* Guadalupe Celaya MD [...] suddenly. Denied any new onset chest pain. Saidyolanda has taken off his medication as prescribed [...] 30 min Stress: Stress Concern Present (02/28/2024) [employer] - Occupational Stress Questionnaire Feeling of Stress : To some extent Social Connections: Unknown (02/28/2024) Social Connection and Isolation Panel [NHANES] Frequency of Communication with Friends and Family: Once a week Frequency of Social Gatherings with Friends and Family: Once a week Attends Caodaism Services: Patient unable to answer Active Member [...] - DO NOT do CPR, intubation] [_] [DNR-MANIFEST CLERK - Comfort care only] [_] DNR form [...] Guadalupe Celaya MD Division of Hospitalist Medicine [facility] documented in this encounterSFisher-Titus Medical CenterIgbrur05-26-3755 Emergency department Note* Pauline Martinez RN - 03/06/2024 8:23 AM EDT Called [facility] to inform of pt refusing to go by squad and wants to go private vehicle. Pauline Martinez RN 03/06/24 0822 [facility] [id number] Emergency department Note* Pauline Martinez RN - 03/06/2024 8:23 AM EDT Called [facility] to inform of pt refusing to go by squad and wants to go private vehicle. Pauline Martinez RN 03/06/24 0824 * Shane Stern MD - 03/05/2024 9:43 PM EDT Emergency Department Encounter [facility] ED Patient: Carlo Medina : 1980 Date [...] calf pain, he endorses recent travel to [place], denies history of DVT or PE, denies [...] with IV Lasix, plan for admission at [facility] for further management, discussed with admitting Dr. [...] for clarification. Shane Stern MD Acute Care [facility] Shane Stern MD 03/06/24 7566 * Aicha Hsieh RN - 03/05/2024 9:43 PM EDT 44 m to ED c/o sob since 7pm. Pt reports he was seen at [facility] for same complaints lastweek. Was d/c'd Friday [...] Dias RN 03/06/24 0830 documented in this [facility]09-06-2024 Emergency department Note* Marycarmen Dias RN - 03/05/2024 9:43 PM EDT Upon signing transfer for, pt states he was informed by prior nurse that he could be driven by private car. Pt is informed that as he is on oxygen and continuous cardiac monitoring, squad transfer isrecommended. Physician is updated and aware and now at bedside. Marycarmen Dias RN 03/06/24 0808 [facility] [id number] Emergency department Note* Marycarmen Dias RN - 03/05/2024 9:43 PM EDT Pt removed by physician with sats maintained. Per Dr. Julien, pt is permitted to be driven by private car. IV access maintained intact in right AC with a coban wrap Marycarmen Dias RN 03/06/24 0830 [facility] [id number] Emergency department Triage note* Aicha Hsieh RN - 03/05/2024 9:43 PM EDT 44 m to ED c/o sob since 7pm. Pt reports he was seen at [facility] for same complaints lastweek. Was d/c'd Friday with new diagnosis of CHF. Pt reports SOB improved while he was up walking. Pt arrived at 88% on rm air. Placed on 3L nc. [facility] [id number] Physician Emergency department Note* Shane Stern MD - 03/05/2024 9:43 PM EDT Emergency Department Encounter [facility] ED Patient: Carlo Medina : 1980 Date [...] calf pain, he endorses recent travel to [place], denies history of DVT or PE, denies [...] with IV Lasix, plan for admission at [facility] for further management, discussed with admitting Dr. [...] provider for clarification. Shane Stern MD Acute [facility] Shane Stern MD 03/06/24 0447 [facility] [id number] Telephone encounter Note* Telephone Encounter - Kaitlin Gonzalez LPN - 03/04/2024 10:00 AM EDT Unable to contact patient X2 [facility] [id number] Miscellaneous Notes* Telephone Encounter - Kaitlin Gonzalez LPN - 03/04/2024 10:00 AM EDT Unable to contact patient X2 * Telephone Encounter - Kaitlin Gonzalez LPN - 03/02/2024 10:30 AM EDT S: Patient admitted to: [facility] 02/28/24 B: Discharged on : 03/01/24 A: Hospital follow up call initiated to discuss any medication changes, follow up appointments and discharge instructions: Shortness of breath R: No contact x 1 at : [phone] documented in this [facility]09-03-2024 Telephone encounter Note* Telephone Encounter - Kaitlin Gonzalez LPN - 03/02/2024 10:30 AM EDT S: Patient admitted to: [facility] 02/28/24 B: Discharged on : 03/01/24 A: Hospital follow up call initiated to discuss any medication changes, follow up appointments and discharge instructions: Shortness of breath R: No contact x 1 at : [phone] [facility] [id number] Nurse Note* Tamiko Live RN - 03/01/2024 1:31 PM EDT Discharge instructions given to patient and questions were addressed. Encouraged patient to follow up with cardiology and new PCP scheduled with Family Medicine. [facility] [id number] Nurse Note* Tamiko Live RN - 03/01/2024 1:31 PM EDT Discharge instructions given to patient and questions were addressed. Encouraged patient to follow up with cardiology and new PCP scheduled with Family Medicine. documented in this [facility]09-02-2024 History of Present illness Narrative* Radha [...] Output -- Net 360 ml Recent Labs 02/28/24 1818 03/01/24 0257 WBC 6.6 4.9 HGB 13.5 13.5 HCT 40.0 40.3 PLT 279 280 Recent Labs 02/29/24 0318 03/01/24 0257 NA 136 136 K 3.8 3.7 CL 105 106 CO2 24 23 BUN 19 22* CREATININE 1.58* 1.56* Lab Results Component Value Date TSH 1.375 02/28/2024 Recent Labs 02/28/24 1818 02/28/24 2112 02/29/24 0318 TROPONINI 0.019 0.019 0.026 Lab Results Component [...] to establish care. Radha Parikh MD [facility] 03/01/24 1:03 PM * Mary Ellen [...] headedness, and chest tightness.[facility] to [facility] 176/123, P [...] past medical history. LABS: CBC: Recent Labs 02/28/24 1818 03/01/24 0257 WBC 6.6 4.9 RBC 4.34* 4.32* HGB 13.5 13.5 HCT 40.0 40.3 MCV 92.2 93.3 RDW 11.7 11.8 PLT 279 280 BMP: Recent Labs 02/28/24211102/29/2431703/01/247 NA 139 136 136 K 4.2 3.8 3.7 CL 104 105 106 CO2 24 23 BUN 19 19 22* CREATININE [...] Ellen Brito MD Division of Hospitalist Medicine [facility] * Mary Ellen Brito MD - 02/29/2024 [...] headedness, and chest tightness.[facility] the [facility] was found to be hypertensive 176/123, P [...] INTAKE/OUTPUT: Intake/Output Summary (Last 24 hours) at 02/29/2024 0827 Last data filed at 02/29/2024 0620 Gross [...] Ellen Brito MD Division of Hospitalist Medicine [facility] documented in this [facility]09-02[facility]24 Hospital Discharge instructions* Discharge Instructions* Mary [...] Care Everywhere. * Shortness of Breath (Dyspnea) (Lithuanian) * DASH Diet (Lithuanian) * Heart Failure Exercise Guide (Lithuanian) * Heart Failure With Reduced Ejection Fraction (Lithuanian) * How to Weigh Yourself (Lithuanian) documented in this [facility]09-02-2024 [facility] 03-01-2024 Hospital course Narrative* Mary Ellen Brito [...] headedness, and chest tightness.[facility] was found to be hypertensive 176/123, P [...] 3.8 3.7 CL 104 105 106 CO2 BUN 22* CREATININE 1.66* 1.58* 1.56* GLUCOSE 118* [...] Your Medications These medications were sent to [facility]/pharmacy #[id number] [facility], [address] [address] clopidogrel 75 MG tablet losartan 50 MG tablet metoprolol tartrate 50 MG tablet Recommended Follow-up: Radha Parikh MD [address] [place], [place] [id number] Follow up Please call and schedule an appointment if you have not heard back from them in a week\ Complexity of Follow up: [] Moderate Complexity: follow up within 7-14 calendar days (52540) [x] Severe Complexity: follow up within 7 calendar days (88912) Follow up Testing, Pending results or Referrals [...] MD Division of Hospitalist Medicine Acute care [facility] 03/01/2024, 12:24 PM documented in this [facility]09-02-[facility]24 Plan of care note* Care Plan [...] Goal: Nutritional status is improving Outcome: Progressing [facility] [id number] Miscellaneous Notes* Care Plan - Tamiko Live [...] Limits 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 Workup at outside emergency room shows cardiomegaly [...] shift include hemodynamically stable documented in this [facility]09-02-2024 Plan of care note* Care Plan - Nirmala Hogan RN - 03/01/2024 5:10 AM EDT The patient is Moderately Stable - Low risk of patient condition declining or worsening The patient's goals for the shift include rest The clinical goals for the shift include pt education [facility] [id number] Note* Care Coordination - lOvin York RN - 02/29/2024 7:52 PM EDT Care Managment Initial Assessment Date: 02/29/2024 Patient Name: Carlo Medina : 1980 Patient Information Source of Information: Patient Cognition/Language: WFL - Within Functional Limits 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 Workup at outside emergency room shows cardiomegaly [...] will continue to follow. 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 Workup at outside emergency room shows cardiomegaly [...] will continue to follow. Olvin York RN [id number] Plan of care note* Care Plan - Tamiko Live RN - 02/29/2024 10:33 AM EDT The patient is Moderately Stable - Low risk of patient condition declining or worsening The patient's goals for the shift include see cardiology The clinical goals for the shift include hemodynamically stable [facility] [id number] Consult note* Radha Parikh MD - 02/29/2024 [...] and now cannot drive. He lives in [facility] and is completely dependent on others for [...] Tests and Imaging personally reviewed) Recent Labs 02/28/24 1818 02/29/24 0318 NA 138 136 K 4.3 3.8 CL 105 105 CO2 25 24 BUN 20 19 CREATININE 1.50* 1.58* Recent Labs 02/28/241817 WBC 6.6 HGB 13.5 HCT 40.0 MCV 92.2 PLT 279 Recent Labs 02/28/24 1818 02/28/24 2112 02/29/24 0318 TROPONINI 0.019 0.019 0.026 Recent [...] social issues detailed above. Radha Parikh MD [facility] 02/29/24 11:39 AM [facility] [id number] Consult note* Radha Parikh MD - 02/29/2024 [...] and now cannot drive. He lives in [facility] and is completely dependent on others for [...] Tests and Imaging personally reviewed) Recent Labs 02/28/24181702/29/24 0318 NA 138 136 K 4.3 3.8 CL 105 105 CO2 25 24 BUN 20 19 CREATININE 1.50* 1.58* Recent Labs 02/28/241817 WBC 6.6 HGB 13.5 HCT 40.0 MCV 92.2 PLT 279 Recent Labs 02/28/24181702/28/24 2112 02/29/24 0318 TROPONINI 0.019 0.019 0.026 Recent [...] social issues detailed above. Radha Parikh MD [facility] 02/29/24 11:39 AM documented [facility] this [facility]08-31-2024 History and physical note* Sherri Jeter MD - 02/28/2024 11:53 PM EDT History and Physical [facility] Carlo Medina : 1980 AGE 44 y.o. YEARS Note Date 02/28/2024 Primary Care Physician:No primary care provider on file. Phone None Fax None Current Providers as of 02/28/2024 PCP: not found Referring Provider: not found, starting on FriFeb 28, 2024 12:00 AM Admitting Provider: Sherri Jeter MD, (Active) Attending Provider: Vic Loaiza MD, starting on [facility] Feb 28, 2024 6:13 PM, ending on FriFeb 28, 2024 7:01 PM (Inactive) Attending Provider: Juan Carlos Le MD, starting on FriFeb 28, 2024 7:00 PM, ending on FriFeb 28, 2024 10:06 PM (Inactive) Attending Provider: Sherri Jeter MD, starting on [facility] Feb 28, 2024 8:49 PM (Active) Registered Nurse: Belkys Townsend RN, starting on FriFeb 28, 2024 6:26 PM, ending on FriFeb 28, 2024 10:06 PM (Inactive) Registered Nurse: Randy Ulloa RN, starting on [facility] Feb 28, 2024 10:14 PM (Active) Registered Nurse: Nirmala Hogan RN, starting on [facility] Feb 28, 2024 10:50 PM [...] 02/28/2024 341 QTC Interval 02/28/2024 469 P Cylinder 02/28/2024 59 QRS Cylinder 02/28/2024 -16 T Wave Cylinder 02/28/2024 124 DE Interval 02/28/2024 145 D-DIMER, INNOVANCE 02/28/2024 1.45 [...] QT Interval 341 QTC Interval 469 P Cylinder 59 QRS Cylinder -16 T Wave Cylinder 124 DE Interval 145 Impression Sinus tachycardia Probable left [...] pharmacologic and mechanical contraindicated 02/28/2024 Carlo Medina [id number] Any scheduled follow up appointments No future appointments. Extended Emergency Contact Information Primary Emergency Contact: Indira Medina Mobile Relation: Sister Secondary Emergency Contact: Kaitlin Hicks Mobile Relation: Significant Other Portions of this note may be electronically transcribed. Please forward a copy of this H&P to the primary care physician. [facility] Work Phone: [phone] [facility]08-31-2024 History and physical note* Sherri Jeter MD - 02/28/2024 11:53 PM EDT History and Physical [facility] Carlo Medina : 1980 AGE 44 y.o. YEARS Note Date 02/28/2024 Primary Care Physician:No primary care provider on file. Phone None Fax None Current Providers as of 02/28/2024 PCP: not found Referring Provider: not found, starting on FriFeb 28, 2024 12:00 AM Admitting Provider: Sherri Jeter MD, (Active) Attending Provider: Vic Loaiza MD, starting on [facility] Feb 28, 2024 6:13 PM, ending on FriFeb 28, 2024 7:01 PM (Inactive) Attending Provider: Juan Carlos Le MD, starting on [facility] Feb 28, 2024 7:00 PM, ending on FriFeb 28, 2024 10:06 PM (Inactive) Attending Provider: Sherri Jeter MD, starting on [facility] Feb 28, 2024 8:49 PM (Active) Registered Nurse: Belkys Townsend RN, starting on [facility] Feb 28, 2024 6:26 PM, ending on FriFeb 28, 2024 10:06 PM (Inactive) Registered Nurse: Randy Ulloa RN, starting on [facility] Feb 28, 2024 10:14 PM (Active) Registered Nurse: Nirmala Hogan RN, starting on [facility] Feb 28, 2024 10:50 PM [...] 02/28/2024 341 QTC Interval 02/28/2024 469 P Cylinder 02/28/2024 59 QRS Cylinder 02/28/2024 -16 T Wave Cylinder 02/28/2024 124 DE Interval 02/28/2024 145 D-DIMER, INNOVANCE 02/28/2024 1.45 [...] QT Interval 341 QTC Interval 469 P Cylinder 59 QRS Cylinder -16 T Wave Cylinder 124 DE Interval 145 Impression Sinus tachycardia Probable left [...] Both pharmacologic and mechanical contraindicated 02/28/2024 Carlo Shookley [id number] Any scheduled follow up appointments No future appointments. Extended Emergency Contact Information Primary Emergency Contact: Indira Medina Mobile Relation: Sister Secondary Emergency Contact: Kaitlin Hicks Mobile Relation: Significant Other Portions of this note may be electronically transcribed. Please forward a copy of this H&P to the primary care physician. documented [facility] this [facility]08-31-2024 Emergency department Note* Belkys Townsend RN - 02/28/2024 9:[address] Le, pt ok to go to [facility] with IV in arm, 2 Jose RN aware, pt departing this facility now and instructed to go straight to [facility], as pt declined EMS transport to [facility]. 2 Jose called at this time and notified pt is on his way there. Belkys Townsend RN 02/28/242130 [facility] [id number] Emergency department Note* Belkys Townsend RN - 02/28/2024 9:[address] Le, pt ok to go to [facility] with IV in arm, 2 Jose RN aware, pt departing this facility now and instructed to go straight to [facility], as pt declined EMS transport to [facility]. 2 Jose called at this time and [...] he recently drove with a friend to [place], they did stop on the way there, [...] I, DR. JUAN CARLOS LE, AM THE OIL PIPE INSPECTOR HELPER OF RECORD. PATIENT WAS SIGNED OUT TO [...] while laying in bed. [facility] and back in one day. Pt states he was told a long time ago that he had high blood pressure but never followed up for it or took medicine for it and hasn't been to the doctor in a long time. Pt is hypertensive, tachypneic and tachycardic at the time of triage. documented [facility] this [facility]08-31-2024 Emergency department Note* Belkys Tonwsend RN - 02/28/2024 9:17 PM EDT Report called to 2 [facility] CRISTINE Townsend RN 02/28/242116 [facility] [id number] NoteSinus tachycardia Probable left atrial enlargement Abnormal R-wave progression, late transition Left ventricular hypertrophy Abnormal T, consider ischemia, lateral leads ST elevation, consider anterior injury No old ekg available for comparison Electronically Signed On 02-28-2024 18:14:12 EDT by Vic COLBY 02-28-2024 NoteSinus tachycardia Probable left atrial enlargement Abnormal R-wave progression, late transition Left ventricular hypertrophy Abnormal T, consider ischemia, lateral leads ST elevation, consider anterior injury No old ekg available for comparison Electronically Signed On 02-28-2024 18:14:12 EDT by Vic COLBY 02-28-2024 Emergency department Triage note* Belkys Townsend RN - 02/28/2024 5:50 PM EDT Pt presents to ED for c/o SOB since Friday mostly at night while laying in bed. [place] [facility] [place] and back in one day. Pt states he was told a long time ago that he had high blood pressure but never followed up for it or took medicine for it and hasn't been to the doctor in a long time. Pt is hypertensive, tachypneic and tachycardic at the time of triage. [facility] [id number] Physician Emergency department Note* Vic Loaiza MD - 02/28/2024 5:50 PM EDT EMERGENCY DEPARTMENT ENCOUNTER Pt Name: Carlo Medina Birthdate 1980 Date of evaluation: 02/28/2024 ED Provider: Vci Loaiza MD CHIEF COMPLAINT Chief Complaint Patient [...] he recently drove with a friend to [place], they did stop on the way there, [...] signed) Emergency Medicine Provider Vic Loaiza MD 02/28/24 190 [facility] Phone: [phone] 494-791308-31-2024 Physician Emergency department Note* Juan Carlos Le MD - 02/28/2024 5:50 PM EDT THIS NOTE CONTAINS PATIENT DISPOSITION I, DR. JUAN CARLOS LE, AM THE OIL PIPE INSPECTOR HELPER OF RECORD. PATIENT WAS SIGNED OUT TO [...] failure, positive D- dimer, chest pain Juan Cralos Le MD 02/28/242052 [facility] CenterEvaluation [facility]* Diagnosis Shortness of breath- Primary Shortness of breath Congestive heart failure, unspecified HF chronicity, unspecified heart failure type (HCC) Positive D dimer Abnormal coagulation profile Chest pain, unspecified type Hypertension, unspecified type documented in this encounter [facility]* Diagnosis Shortness of breath- Primary Shortness of breath Acute on chronic congestive heart failure, unspecified heart failure type (HCC) Hypoxia Hypoxemia Pleural effusion Unspecified pleural effusion documented in this encounter [facility] HealthEvaluation note* Diagnosis Pulmonary vascular congestion- Primary Chest pain, unspecified type Acute cough Sore throat Acute pharyngitis Positive D dimer Abnormal coagulation profile Congestive heart failure, unspecified HF chronicity, unspecified heart failure type (HCC) Pulmonary vascular congestion Orthopnea Short of breath on exertion Congestive heart failure, unspecified HF chronicity, unspecified heart failure type (HCC) documented in this encounter [facility]* Diagnosis Metabolic acidosis- Primary Acidosis Metabolic acidosis Acidosis HFrEF (heart failure with reduced ejection fraction) ([facility]) Acute cholecystitis without calculus Acute cholecystitis Moderate malnutrition (CMS/HCC) ([facility]) [facility]* Diagnosis Edema of left lower extremity- Primary documented in this encounter [facility]Evaluation note* Diagnosis Essential hypertension- Primary Unspecified essential hypertension Congestive heart failure, unspecified HF chronicity, unspecified heart failure type (HCC) Elevated liver enzymes Other nonspecific abnormal serum enzyme levels Chronic kidney disease, unspecified CKD stage documented in this encounter [facility]* Diagnosis Congestive heart failure, unspecified HF chronicity, unspecified heart failure type (HCC)- Primary documented in this encounter [facility]Evaluation note* Diagnosis Acute HFrEF (heart failure [...] Pulmonary vascular congestion documented in this encounter [facility]Evaluation note* Diagnosis Chronic systolic heart failure (HCC)- Primary Chronic systolic heart failure Essential hypertension Unspecified essential hypertension Chronic kidney disease, unspecified CKD stage documented in this encounter [facility]Evaluation note* Diagnosis Acute kidney injury superimposed on CKD (HCC) (HCC)- Primary Acute kidney injury superimposed on CKD (HCC) (HCC) Transaminitis Nonspecific elevation of levels of transaminase or lactic acid dehydrogenase (LDH) History of CHF (congestive heart failure) Personal history of other diseases of circulatory system HFrEF (heart failure with reduced ejection fraction) (HCC) documented in this encounter [facility]* Diagnosis Acute systolic heart failure (HCC)- Primary Acute systolic heart failure Essential hypertension Unspecified essential hypertension Chronic systolic heart failure (HCC) Chronic systolic heart failure Chronic kidney disease, unspecified CKD stage documented in this encounter [facility]* Diagnosis Chronic systolic heart failure (HCC)- Primary Chronic systolic heart failure documented in this encounter [facility]* Diagnosis NSTEMI (non-ST elevated myocardial infarction) ([facility])- Primary Acute myocardial infarction, subendocardial infarction, episode of care unspecified NSTEMI (non-ST elevated myocardial infarction) (HCC) Acute myocardial infarction, subendocardial infarction, episode of care unspecified Abdominal pain, unspecified abdominal location HFrEF (heart failure with reduced ejection fraction) ([facility]) Cardiorenal syndrome with renal failure, stage 1-4 or unspecified chronic kidney disease, with heart failure (HCC) Biventricular heart failure (HCC) Congestive heart failure, unspecified Chronic pulmonary embolism without acute cor pulmonale, unspecified pulmonary embolism type ([facility]) [facility] Diagnosis HFrEF (heart failure with reduced ejection fraction) (HCC)- Primary Acute HFrEF (heart failure with reduced ejection fraction) ([facility]) Essential hypertension Unspecified essential hypertension Stage 3a chronic kidney disease ([facility]) Noncompliance [facility]* Diagnosis Acute kidney injury (HCC)- Primary Acute kidney injury (HCC) History of congestive heart failure Personal history of other diseases of circulatory system Bilateral lower extremity edema [place] (acute kidney injury) ([facility]) Acute HFrEF (heart failure with reduced ejection fraction) ([facility]) Noncompliance Essential hypertension Unspecified essential hypertension Sinus tachycardia Other specified cardiac dysrhythmias Acute deep vein thrombosis (DVT) of lower extremity (HCC) [place] (acute kidney injury) ([facility]) [facility] Diagnosis HFrEF (heart failure with reduced ejection fraction) (HCC)- Primary Essential hypertension Unspecified essential hypertension Acute deep vein thrombosis (DVT) of other specified vein of both lower extremities ([facility]) [facility] Diagnosis HFrEF (heart failure with reduced ejection fraction) ([facility])- Primary Essential hypertension Unspecified essential hypertension Acute deep vein thrombosis (DVT) of other specified vein of both lower extremities ([facility]) SCHUYLER (acute kidney injury) ([facility])- Primary Shortness of breath Chest pain, unspecified type [facility] Diagnosis Chronic systolic heart failure (HCC)- Primary Chronic systolic heart failure Essential hypertension Unspecified essential hypertension Chronic kidney disease, unspecified CKD stage HFrEF (heart failure with reduced ejection fraction) (HCC)- Primary Essential hypertension Unspecified essential hypertension Acute deep vein thrombosis (DVT) of other specified vein of both lower extremities ([facility]) [facility] Diagnosis HFrEF (heart failure with reduced ejection fraction) ([facility])- Primary Essential hypertension Unspecified essential hypertension Acute deep vein thrombosis (DVT) of other specified vein of both lower extremities (HCC) Acute kidney injury superimposed on CKD (HCC) (HCC)- Primary Acute kidney injury superimposed on CKD (HCC) (HCC) Congestive heart failure, unspecified HF chronicity, unspecified heart failure type ([facility]) [facility] Diagnosis Chronic systolic heart failure (HCC)- Primary Chronic systolic heart failure Essential hypertension Unspecified essential hypertension Chronic kidney disease, unspecified CKD stage HFrEF (heart failure with reduced ejection fraction) (HCC)- Primary Essential hypertension Unspecified essential hypertension Acute deep vein thrombosis (DVT) of other specified vein of both lower extremities ([facility]) [facility] Diagnosis HFrEF (heart failure with reduced ejection fraction) (HCC)- Primary Essential hypertension Unspecified essential hypertension Acute deep vein thrombosis (DVT) of other specified vein of both lower extremities ([facility]) Biventricular congestive heart failure (HCC)- Primary Congestive heart failure, unspecified Generalized abdominal pain Abdominal pain, generalized Chest pain, unspecified type [facility] in this encounter [facility] Diagnosis HFrEF (heart failure with reduced ejection fraction) (HCC)- Primary Essential hypertension Unspecified essential hypertension Acute deep vein thrombosis (DVT) of other specified vein of both lower extremities ([facility]) Elevated serum creatinine- Primary Other nonspecific findings on examination of blood Elevated brain natriuretic peptide (BNP) level documented in this encounter [facility] Diagnosis Chest pain, unspecified type- Primary Nausea vomiting and diarrhea Diarrhea [facility] [place] [facility] Diagnosis HFrEF (heart failure with reduced ejection fraction) ([facility])- Primary Pneumonia of right lower lobe due to infectious organism Hypervolemia, unspecified hypervolemia type HFrEF (heart failure with reduced ejection fraction) ([facility]) Acute kidney injury superimposed on CKD (HCC) Tachycardia, unspecified Nonspecific intraventricular block Other heart block Abnormal electrocardiogram (ECG) (EKG) Cardiogenic shock ([facility]) [R57.0] Cardiogenic shock Acute deep vein thrombosis (DVT) of distal vein of lower extremity, unspecified laterality ([facility]) Pneumonia of right lower lobe due to [...] duced ejection fraction) acute January 04 1:40pm [facility] Work Phone: History and physical note Author Anshul Lemus [facility] Note Date/Time January 04, 2025 2:06p m [facility] Medical Records Department [address] [place] [address] H&P Exam - Hospitalist 01/04/25 1351 MR#: [id number] Acct: [id number] Name: CARLO MEDINA Pedro Rep #:[id number] : 1980 44 From: Anshul Lemus DO PCP: Care Physician,No Primary Status :ADM IN Location: [facility] [id number] HPI - General General Date of [...] time. Has had numerous hospitalizations over at [facility] and recently was over at [facility] in September. It is documented throughout his charts at [facility] as well as [facility] that he has a history of noncompliance. [...] still wants time to think about it. [facility] Medical History (Updated 01/04/25 @ 14:[address] Anshul Lemus, DO) CKD (chronic kidney disease) Cardiomyopathy Left [...] % (Auto) 59.5, Lymph % (Auto) 30.6, Duplin % (Auto) 9.1, Eos % (Auto) 0.3, [...] Sens 45 H, [place] [address] H, Total Protein 6.8, Albumin 3.6, Globulin 3.2, Lipase 15 01/04/25 11:20: Troponin T Hi Sens 2 Hr 42 H EKG Initial EKG: Attestation: I personally reviewed and interpreted this EKG as follows: EKG Rhythm Intrepretation: Sinus Bradycardia Imaging Radiology Impression Chest X-Ray 01/04/25 08:25 IMPRESSION: Bibasilar atelectasis or pneumonia. Reading Location: [facility] Abdomen Ultrasound 01/04/25 11:03 IMPRESSION: 1. Ascites. 2. Fatty infiltration of the liver. Reading Location: [facility] Assessment & Plan Assessment/Plan (1) HFrEF (heart [...] History of noncompliance: Per previous documentation from [facility] as well [facility]. Patient is steadfast in regards to doing [...] his cardiomyopathy. Charges/Coding Visit Charges Inpatient E&M: 35109 Init Hosp L3 01/04/25 1406 <Electronically signed by Anshul Lemus DO> Cosigner Signature (if applicable): CC: Dr. Anshul Lemus, ; No Primary Care Physician~ Signed [facility] Work Phone: Hospital Discharge instructions* Attachments The following attachments cannot be sent through Care Everywhere. * Heart Failure Discharge Instructions, Adult (Lithuanian) documented in this [facility] Discharge instructions Ambulatory Orders* Phase II, Outpatient Cardiac Rehab Location: None [facility] Work Phone: Hospital Discharge instructionsAdditional Instructions [...] is larger that perform those procedures including [facility], [facility], [facility], [facility]. If you have issues in regards to you passing out and having no recollection of the event, irregular heartbeat, call 911 and go to the nearest emergency room. As we discussed, you are at high risk of because of your weak heart and your abnormal heart rhythm (second-degree heart block Mobitz type II).[facility] Work Phone: reason for referral (narrative)No reason for referral information [facility] Work Phone: reason for visit Narrative* Auth/Cert (Routine) Specialty Diagnoses / Procedures Referred By Contac t Referred To Contact Diagnoses Orthopnea Sore throat Positive D dimer Pulmonary vascular congestion Short of breath on exertion Chest pain, unspecified type Acute cough Congestive heart failure, unspecified HF chronicity, unspecified heart failure type (HCC) Procedures . Alonzo Aguilar MD [address] [place] [address] Phone: tel: fax: [facility] Clinical Decision Unit [address] [address] Phone: tel: Referral ID Status Reason Start Date Expiration Date Visits Re quested Visits Authorized [id number] 1 1 [facility] Advance Directives No Advanced Directives Records Found [...] Do you have a Healthcare Power of Lease Attendant? No January 04, 2025 7:54am Advance Directive Response Recorded Date/ Time Do you have a Healthcare Power of Lease Attendant? No January 04, 2025 2:45pm Advance Directive Response Recorded Date/ Time Do you have a Healthcare Power of Lease Attendant? No January 29, 2025 8:30am Do you have a Healthcare Power of Lease Attendant? No January 04, 2025 2:45pm Summary Purpose [...] Referral Order January 10, 2025 8:18 am Chief Complaint Admit Date CHF EXACERBATION January [...] Referral Order January 10, 2025 8:18 am BLOATING January 29, 2025 7:4 9am Reason for Visit Admit Date Heart block January 04, 2025 1:40p m Hypokalemia January 04, 2025 1:40p m CKD stage 3b, GFR 30-44 ml/min January 04, 2025 1:40pm Elevated bilirubin January 04, 2025 1:40p m HFrEF (heart failure with reduced ejecti on fraction) January 04, 2025 1:40pm Chief Complaint Admit Date CHF EXACERBATION January 04, 2025 1:40p m CHF EXACERBATION January 04, 2025 1:51p m CHF EXACERBATION January 05, 2025 8:05a m CHF EXACERBATION January 06, 2025 8:23 am CHF EXACERBATION Pura 11th, 2025 8:03 am CHF EXACERBATION January 08, 2025 7:50 am CHF EXACERBATION January 09, 2025 7:48 am CHF EXACERBATION January 10, 2025 8:11 am Referral Order January 10, 2025 8:18 am BLOATING January 29, 2025 7:4 9am S/P [facility] 01/10 CHF Exacerbation January 2:34pm Additional Source Comments Reason for Visit (unrecogniz ed section and content) Reason Comments Shortness of Breath Specialty Diagnoses / Procedures Referred By Contac t Referred To Contact Diagnoses Shortness of breath Positive D dimer Chest pain, unspecified type Hypertension, unspecified type Congestive heart failure, unspecified HF chronicity, unspecified heart failure type (HCC) Procedures [id number] of breath Sherri Jeter MD [address] [place] [address] [facility] 2e Cardiac Pcu [address] [place] [address] Referral ID Status Reason Start Date Expiration Date Visits Re quested Visits Authorized [id number] 1 1 Reason Onset Date Comments Hospital Follow-up 03/02/2024 Specialty Diagnoses / Procedures Referred By Contac t Referred To Contact Diagnoses Shortness of breath Procedures sob Helder Pozo MD [address] [place] [address] [address] [facility] [place] [address] Referral ID Status Reason Start Date Expiration Date Visits Re quested Visits Authorized [id number] 1 1 Reason Comments Shortness of Breath Since 7pm Specialty Diagnoses / Procedures Referred By Contac t Referred To Contact Diagnoses Shortness of breath Procedures sob Helder Pozo MD [address] [place] [address] [facility] [address] [place] [address] Reason Onset Date Comments Care Coordination 03/08/2024 [...] HFrEF (heart failure with reduced ejection fraction) ([facility]) Procedures . Mary Ellen Brito MD [address] [place] [address] Phone: tel: fax: [facility] Cardiac Progressive Care Unit U [address]E [address] [place] [address] Phone: tel: Referral ID Status Reason Start Date Expiration Date Visits Re quested Visits Authorized [id number] 1 1 Reason Comments Leg Swelling BLE [...] failure (HCC) Procedures - Serg Celaya MD [address] [place] [id number] Phone: tel: fax: [facility] Card[facility] Progressive Care Unit U [address] [place] [address] Phone: tel: Referral ID Status Reason Start Date Expiration Date Visits Re quested Visits Authorized [id number] 1 1 Reason Onset Date Comments Hospital Follow-up 06/24/2024 Reason Onset Date Comments Hospital Follow-up 06/22/2024 Reason Comments Follow-up Reason Comments Abdominal Pain Shortness of Breath Patient reports he h as a history of heart disease and stage 3 kidney disease. Patient reports shob started last pm. 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 Specialty Diagnoses / Procedures Referred By Contac t Referred To Contact Diagnoses Transaminitis History of CHF (congestive heart failure) Acute kidney injury superimposed on CKD (HCC) (HCC) Procedures . Ofelia Villalobos MD [address] [place], [place] [id number] Phone: tel: fax: [facility] Cardiac Thoracic Vascular Intensive Care Unit CTV ICU T1 [address] [place] [address] Phone: tel: Referral ID Status Reason Start Date Expiration Date Visits Re quested Visits Authorized [id number] 1 1 Reason Comments Hospital Follow-up Cardiomyopathy Reason Comments Abdominal Pain Specialty Diagnoses / Procedures Referred By Macario t Referred To Contact Diagnoses Biventricular heart failure (HCC) NSTEMI (non-ST elevated myocardial infarction) (HCC) HFrEF (heart failure with reduced ejection fraction) (HCC) Abdominal pain, unspecified abdominal location Cardiorenal syndrome with renal failure, stage 1-4 or unspecified chronic kidney disease, with heart failure (HCC) Procedures . Rafa Samuel MD [address] [place] [address] Phone: tel: fax: [facility] Cardiac Progressive Care Unit PCU [address]E [address] [place] [address] Phone: tel: Referral ID Status Reason Start Date Expiration Date Visits Re quested Visits Authorized [id number] 1 1 Reason Onset Date Comments Hospital Follow-up 07/19/2024 Reason Onset Date Comments Appointment Request 07/23/2024 Reason Onset Date Comments Results 07/23/2024 Worsening renal function, hyperkalemia, heart failure Reason Comments Shortness of Breath Abdominal Pain Specialty Diagnoses / Procedures Referred By Macario manriquez Referred To Contact Diagnoses Acute kidney injury (HCC) Procedures . Rafa Samuel MD [address] [place] [address] Phone: tel: fax: [facility] ED [address] [place] [address] Phone: tel: Referral ID Status Reason Start Date Expiration Date Visits Re quested Visits Authorized [id number] 1 1 Reason Onset Date Comments Hospital Follow-up 08/02/2024 Reason Comments New Patient Referred by Dr Jarett ford Congestive Heart Failure Echo pending 08/30/24 Hospital Follow-up 6 admission since 2023 Reason Comments Chest Pain Patient arrives via triage for c/o chest pain and shortness of breath x1 day Reason Onset Date Comments Discuss Labs 08/05/2024 Med Management 08/05/2024 Reason Comments Shortness of Breath Chest Pain Abdominal Pain Specialty Diagnoses / Procedures Referred By Macario manriquez Referred To Contact Diagnoses Acute kidney injury superimposed on CKD (HCC) (HCC) Procedures . Nghia Webb MD [address] [place] [address] Phone: tel: fax: [facility] ED [address] [place] [address] Phone: tel: Referral ID Status Reason Start Date Expiration Date Visits Re quested Visits Authorized [id number] 1 1 Reason Comments Follow-up Reason Comments [...] congestion. Specialty Diagnoses / Procedures Referred By Macario manriquez Referred To Contact Emergency Medicine Diagnoses Pneumonia, unspecified organism Fluid overload, unspecified Procedures NA [facility] [employer] [facility] [place] [address] Phone: tel: [facility] [employer] [address] [place] [address] Phone: tel: Referral ID Status Reason Start Date Expiration Date Visits Re quested Visits Authorized [id number] 3 3 Reason Comments Hospital follow-up HF [...] Referred By Macario manriquez Referred To Contact Emergency Medicine Diagnoses Pneumonia, unspecified organism Procedures NA [facility] [employer] [facility] [address] [facility] [place] [address] Phone: tel: [facility] [employer] [address] [place] [address] Phone: tel: Referral ID Status Reason Start Date Expiration Date Visits Re quested Visits Authorized [id number] 3 3 Reason Comments Hospital follow-up Transitional Care Management HF DC Reason Comments Refill Reason Onset Date Comments Refill 12/13/2024 Reason Onset Date Comments Refill 12/24/2024 Reason Onset Date Comments Transition Of Care 01/24/2025 Heart Failure 01/24/2025 TCM Pharmacy-Hos pital discharge 01/21/25 Scheduled Active and Recently Administ ered Medications (unrecognized section and content) Medication Order 02/28/2024 02/29/2024 03/01/2024 clopidogrel (Plavix) tablet 75 mg 75 mg, Oral, Daily, First dose on 02/29/24 at 1045 1246 (Given - Provider: Tamiko Live RN - Comment: given) 08 (Given - Provider: Tamiko Live RN) enoxaparin [...] On 02/28/24 at 1900, For 1 dose 1915 (Given - Provider: Belkys Townsend, CRISTINE) LORazepam (Ativan) tablet 1 mg (COMPLETED) 1 mg, Oral, Once, On 02/28/24 at 2049, For 1 dose 2056 (Given - Provider: Belkys Townsend, CRISTINE) losartan (Cozaar) tablet 50 mg 50 mg, Oral, Daily, First dose on 02/29/24 at 1045 1246 (Given - Provider: Tamiko Live RN - Comment: given) 0812 (Given - Provider: Tamiko Live, CRISTINE) metoprolol tartrate (Lopressor) tablet 50 mg 50 mg, Oral, Daily, First dose on 02/29/24 at 1045 1245 (Given - Provider: Tamiko Live, RN) 0931 (Given - Provider: Tamiko Live, RN) ondansetron (Zofran) injection 4 mg 4 mg, IntraVENous, Once, On 02/28/24 at 2015, For 1 dose 2014 (Not Given - [...] greater than 160, Starting on 02/28/24 at 2605 3292 (Given - Provider: Nirmala Hogan RN) ondansetron [...] Patient/family refused) 1000 (Given - Provider: Ruby Powers, RN) clopidogrel (Plavix) tablet 75 mg 75 [...] RN) 1000 (Given - Provider: Ruby Powers, RN) furosemide (Lasix) injection 40 mg (COMPLETED) [...] Lore Meek RN)2019 (Given - Provider: Xenia Patel RN) 1000 (Given - Provider: Ruby Powers, RN) furosemide (Lasix) tablet 80 mg 80 mg, Oral, Daily, First dose on 03/07/24 at 1215 1215 (Not Given - Provider: Ruby Powers, RN - Reason: Patient/family refused - Comment: Will take at home) losartan (Cozaar) tablet 100 mg 100 mg, Oral, Daily, First dose (after last modification) on Fri03/07/24 at 0900 1001 (Given - Provider: Ruby Powers, CRISTINE) losartan (Cozaar) tablet 50 mg (CANCELED) 50 mg, Oral, Daily, First dose on 03/06/24 at 1230 1312 (Given - Provider: Lore Meek, CRISTINE) metoprolol tartrate (Lopressor) tablet 50 mg (CANCELED) 50 mg, Oral, Daily, First dose on 03/06/24 at 1230 1312 (Given - Provider: Lore Meek, CRISTINE) nitroglycerin (Nitrostat) SL tablet 0.4 mg (COMPLETED) 0.4 mg, SubLINGual, Once, On Fri03/05/24 at 2205, For 1 dose, May administer up to 3 doses per episode. 2203 (Given - Provider: Aicha Hsieh RN) rosuvastatin (Crestor) tablet 10 mg 10 mg, Oral, Nightly, First dose on 03/06/24 at 2100 2020 (Given - Provider: Xenia Patel RN) spironolactone (Aldactone) tablet 25 mg 25 mg, Oral, Daily, First dose on 03/06/24 at 1330 1359 (Given - Provider: Lore Meek RN) 1000 [...] 0813 (Not Given - Pr ovider: Jillian Ferguson RN - Reason: Other - Comment: See previous administration from [place] [facility]) furosemide (Lasix) tablet 80 mg 80 mg, Oral, Daily, First dose on Fri04/28/24 at 0900, On hold since Fri04/28/2024 at 0753 until manually unheld 0753 (Held by provid er - Provider: Juan Maya APRN - OFFICE CORRESPONDENT - Reason: Other)0900 (Dose Auto Held)1706 (Unheld [...] - Comment: okay to administer per Karrie BASE WAD OPERATOR ADJUSTER CDU) naloxone (Narcan) injection 0.4 mg 0.4 mg, IntraVENous, Every 5 min PRN, opioid reversal, respiratory depression, Starting on Fri04/28/24 at 1005, +++ For RR <10, pinpoint pupils, over sedation for opioid reversal - MUST notify clinical admissions manager provider immediately after first dose, may give [...] meals, First dose (after last modification) on 05/29/24 at 1700 0944 (Given - Provider: King Jackson RN)1602 (Given - Provider: King Jackson RN) 0857 (Given - Provider: Kira Santos RN)1758 (Given - Provider: Kira Santos RN) [...] King Jackson RN)2045 (Given - Provider: Tita Hernandez, CRISTINE) 0900 (Given - Provider: Kira Santos RN) [...] than 100.4 F (38 C), Starting on 11/29/24 at 1244, Maximum dose of acetaminophen is [...] further options ordered. Scheduled Medication Order 06/01/2024 06/02/2024 06/03/2024 enoxaparin (Lovenox) syringe 80 mg (COMPLETED) 80 [...] Anticoagulant 0929 (Given - Provider: King Jackson RN)194 (Given - Provider: Maylin Washington RN) 0948 (Given - Provider: King Jackson RN)2046 (Given [...] last modification) on Benita 06/17/24 at 1400 0931 (Given - Provider: King Jackson RN)1400 (Not Given - Provider: King Jackson RN - Reason: Patient/family refused)1946 (Given - Provider: Maylin Washington RN) 0948 (Given - Provider: King Jackson RN)1412 (Given - Provider: King Jackson RN)2047 (Given - Provider: Maylin Washington RN) 0931 (Given - Provider: Chloé Chilel RN)1426 (Given - Provider: Chloé Chilel RN) influenza vaccine tiss-cult subunt (Flucelvax) STANDARD-DOSE injection 0.5 mL 0.5 mL, IntraMUSCular, Prior to discharge, Starting on 12/16/24 at 0900, For 1 dose isosorbide dinitrate (Isordil) tablet 30 mg 30 mg, Oral, 3 times daily, First dose (after last modification) on Fri06/17/24 at 1400 0932 (Given - Provider: King Jackson RN)1400 (Not Given - Provider: King Jackson RN - Reason: Patient/family refused)1945 (Given - Provider: Maylin Washington RN) 0948 (Given - Provider: King Jackson RN)1411 (Given - Provider: King Jackson RN)204 (Given - Provider: Maylin Washington RN) 0930 (Given - Provider: Chloé Chilel, RN)142 (Given - Provider: Chloé Chilel RN) magnesium hydroxide (Milk of Magnesia) 400 MG/5ML suspension 30 mL 30 mL, Oral, Nightly, First dose on Fri06/16/24 at 2100, Follow dose with 8 oz of water. 194 (Not Given - Provider: Maylin Washington RN - Reason: Patient/family refused) 194 (Not Given - Provider: Maylin Washington RN - Reason: Patient/family refused) pantoprazole (ProtoNix) EC tablet 40 mg 40 mg, Oral, 2 times daily before meals, First dose on 06/13/24 at 1715, Do not crush, chew, or split. 0700 (Not Given - Provider: Maylin Washington RN - Reason: Patient/family refused)1600 (Not Given - Provider: King Jackson RN - Reason: Patient/family refused) 0700 (Not Given - Provider: Maylin Washington RN - Reason: Patient/family refused)1600 (Not Given - Provider: King aJckson RN - Reason: Patient/family refused) 0700 (Not Given - Provider: Maylin Washington RN - Reason: Patient/family refused)1600 (Canceled Entry - Provider: Automatic Discharge Provider - Comment: Automatically canceled at discontinue of medication order) sodium bicarbonate tablet 1,300 mg 1,300 mg, Oral, 2 times daily, First dose on 06/13/24 at 2100 0933 (Given - Provider: King Jackson RN)194 (Given - Provider: Maylin Washington RN) 0955 (Given - Provider: King Jackson RN)204 (Given - Provider: Maylin Washington RN) 1674 (Given - Provider: Chloé Chilel RN) PRN [...] 07/03/24 at 2145, For 50 days, Anticoagulant 2205 (Not Given - Provider: Eugene Aiken [...] Eva Torres RN)2055 (Given - Provider: Ladarius Luong RN) 943 (Given - Provider: Anshul Hadley RN) cholecalciferol (Vitamin D-3) tablet 4,000 Units 4,000 Units, Oral, Daily, First dose on 07/04/24 at 0900 0900 (Not Given - Provider: Eva Torres RN - Reason: Medication not available) 0944 (Given - Provider: Anshul Hadley, CRISTINE) furosemide (Lasix) injection 80 mg (COMPLETED) 80 mg, IntraVENous, Once, On 07/03/24 at 2145, For 1 dose 2205 (Given - Provider: Eugene Aiken, RN) furosemide (Lasix) injection 80 mg (CANCELED) 80 mg, IntraVENous, 2 times daily, First dose (after last modification) on Fri07/04/24 at 0900 0927 (Given - Provider: Eva Torres RN) furosemide (Lasix) injection 80 mg (CANCELED) 80 mg, IntraVENous, 2 times daily, First dose (after last modification) on 07/04/24 at 1700, On hold since Fri07/05/2024 at 0638 until manually unheld 172 (Given - Provider: Joe Hermosillo RN) 0638 (Held by provider - Provider: Roopa Lugo DO - Reason: Other - Comment: Refused morning labs. Electrolytes levels unknown)0900 (Dose Auto Held - Provider: Roopa Lugo DO)0923 (Unheld by provider - Provider: Roopa Lugo DO) furosemide (Lasix) tablet 40 mg 40 mg, Oral, Daily, First dose on Fri07/05/24 at 0930 0944 (Given - Provider: Anshul Hadley, CRISTINE) hydrALAZINE (Apresoline) tablet 100 mg (CANCELED) 100 [...] take any PO medications at this time.) 0803 (Given - Provider: Eva Torres RN)1423 (Given - Provider: Joe Hermosillo RN)2055 (Given - Provider: Ladarius Luong RN) 0900 (Not Given - Provider: Anshul Jomar, RN - Reason: See Provider Order) isosorbide [...] take any PO medications at this time.) 0803 (Given - Provider: Eva Torres RN) isosorbide dinitrate (Isordil) tablet 40 mg (CANCELED) 40 mg, Oral, 3 times daily, First dose (after last modification) on Fri07/04/24 at 1400 1423 (Given - Provider: Joe Hermosillo RN)2056 (Given - Provider: Ladarius Luong RN) 0900 (Not Given - Provider: Anshul Hadley RN - Reason: See Provider Order) losartan (Cozaar) tablet 25 mg 25 mg, Oral, Daily, First dose on 07/05/24 at 0930 0944 (Given - Provider: Anshul Hadley, CRISTINE) morphine injection 4 mg (COMPLETED) 4 mg, [...] Ladarius Luong RN - Reason: Patient/family refused) 1006 (Given - Provider: Anshul Hadley RN) ondansetron (Zofran) injection 4 mg (COMPLETED) [...] Eva Torres RN)2056 (Given - Provider: Ladarius Luong RN) 09 (Given - Provider: Anshul Hadley, CRISTINE) Continuous [...] times daily, First dose on Fri07/12/24 at 2000, Anticoagulant 0817 (Given - Provider: Hortencia Pace, RN)2018 (Given - Provider: Dorothy Garcia, CRISTINE) 1028 (Given - Provider: Hortencia Pace, CRISTINE)2016 (Given - Provider: Sue Schuler RN) 0931 (Given - Provider: Pauline Schroeder RN) carvedilol (Coreg) tablet 12.5 mg (CANCELED) 12.5 mg, Oral, 2 times daily with meals, First dose (after last modification) on Benita 07/15/24 at 1700 2014 (Given - Provider: Sue Schuler, CRISTINE) carvedilol [...] at 0800 0817 (Given - Provider: Hortencia Pace, CRISTINE) carvedilol (Coreg) tablet 6.25 mg (CANCELED) 6.25 mg, Oral, 2 times daily with meals, First dose (after last modification) on Fri07/14/24 at 1700 2018 (Given - Provider: Dorothy Garcia RN - Comment: pt request) 1029 (Given - Provider: Hortencia Pace RN) cholecalciferol (Vitamin D-3) tablet 4,000 Units 4,000 Units, Oral, Daily, First dose on Fri07/12/24 at 0900 0817 (Given - Provider: Hortencia Pace RN) 102 (Given - Provider: Hortencia Pace RN) 09 (Given - Provider: Pauline Schroeder, RN) magnesium oxide (Mag-Ox) tablet 400 mg (COMPLETED) 400 mg, Oral, Once, On Fri07/15/24 at 1100, For 1 dose 1333 (Given - Provider: Puja Monterroso RN) metoprolol tartrate (Lopressor) injection 5 mg (COMPLETED) 5 mg, IntraVENous, Once, On Fri07/14/24 at 0445, For 1 dose 0444 (Self Administered Via Pump - Provider: Leatha Lancaster RN) sacubitril-valsartan (Entresto) 49-51 MG per tablet 1 tablet (CANCELED) 1 tablet, Oral, 2 times daily, First dose on Fri07/13/24 at 2100, Contraindicated in combination with LUCRECIA inhibitors. Ensure a minimum of 36 hours between any LUCRECIA inhibitor dose and sacubitril-valsartan. 816 (Given - Provider: Hortencia Pace RN)2018 (Given - Provider: Dorothy Garcia, CRISTINE) sacubitril-valsartan (Entresto) 97-103 MG per tablet 1 tablet 1 tablet, Oral, 2 times daily, First dose on Fri07/15/24 at 0900, Contraindicated in combination with LUCRECIA inhibitors. Ensure a minimum of 36 hours between any LUCRECIA inhibitor dose and sacubitril-valsartan. 102 (Given - Provider: Hortencia Pace RN)2018 (Given - Provider: Sue Schuler, CRISTINE) 09 (Given - Provider: Pauline Schroeder, RN) sodium bicarbonate tablet 1,300 mg 1,300 mg, Oral, 2 times daily, First dose on Fri07/12/24 at 0900 0817 (Given - Provider: Hortencia Pace RN)2019 (Given - Provider: Dorothy Garcia, RN) 1028 (Given - Provider: Hortencia Pace RN)2015 (Given - Provider: Sue Schuler RN) 0931 (Given - Provider: Pauline Schroeder RN) spironolactone (Aldactone) tablet 12.5 mg 12.5 [...] Schuler RN) 0856 (Given - Provider: Tamiko Live, CRISTINE)2000 (Given - Provider: Sue Schuler RN) 0840 (Given - Provider: Tamiko Live, CRISTINE) carvedilol (Coreg) tablet 25 mg 25 mg, Oral, 2 times daily with meals, First dose on 07/24/24 at 0800 0914 (Given - Provider: Phyllis Luna RN)2015 (Given - Provider: Sue Schuler RN) 0901 (Given - Provider: Tamiko Live, CRISTINE)2000 (Given - Provider: Sue Schuler RN) 0840 (Given - Provider: Tamiko Live, CRISTINE) cholecalciferol (Vitamin D-3) tablet 4,000 Units [...] daily, First dose (after last modification) on Fri07/24/24 at 2100 0914 (Given - Provider: Phyllis [...] gastric irritation. Do not crush or chew. 09 (Given - Provider: Tamiko Live RN) potassium chloride CR (Klor-Con M10) ER tablet 40 mEq 40 mEq, Oral, 3 times daily, First dose (after last reorder) on Fri07/30/24 at 0900, For 3 doses, Best given with food and plenty of water to minimize gastric irritation. Do not crush or chew. 0837 (Given - Provider: Tamiko Live, CRISTINE)1222 (Given - Provider: Tamiko Live, RN) sodium bicarbonate tablet 1,300 mg 1,300 mg, Oral, 2 times daily, First dose on 07/24/24 at 0220 0900 (Given - Provider: Phyllis Luna RN)2015 (Given - Provider: Sue Schuler RN) 0856 (Given - Provider: Tamiko Live, RN)2000 (Given - Provider: Sue Schuler, RN) 0840 (Given - Provider: Tamiko Live, RN) spironolactone (Aldactone) tablet 12.5 mg 12.5 mg, Oral, Daily, First dose on Fri07/30/24 at 1045 1222 (Given - Provider: Tamiko Live RN) PRN Medication Order 07/28/2024 07/29/2024 07/30/2024 acetaminophen [...] Patient/family refused - Comment: dr adelia huff) calcium carbonate (Tums) chewable tablet 1,000 mg [...] Reason: Patient/family refused - Comment: dr adelia huff)1515 (Canceled Entry - Provider: Automatic Discharge Provider [...] Zambrano RN)1343 (Given - Provider: Sonia Zambrano RN)2020 (Given - Provider: Yue Patterson RN) 101 (Given - Provider: Sonia Zambrano RN) isosorbide dinitrate (Isordil) tablet 20 mg (CANCELED) 20 mg, Oral, 3 times daily, First dose (after last modification) on Fri08/12/24 at 1400 0854 (Given - Provider: Sonia Zambrano RN)1343 (Given - Provider: Sonia Zambrano RN)2099 (Given - Provider: Yue Patterson RN) 1017 (Given - Provider: Sonia Zambrano RN) losartan (Cozaar) tablet 50 mg 50 mg, Oral, Daily, First dose on Fri08/20/24 at 0900 0907 (Given - Provider: Jacque Clark RN) magnesium oxide (Mag-Ox) tablet 400 mg (CANCELED) 400 mg, Oral, Daily, First dose on Fri08/17/24 at 0900 0854 (Given - Provider: Sonia Zambrano RN) magnesium oxide (Mag-Ox) tablet 400 mg 400 mg, Oral, 2 times daily, First dose (after last modification) on Fri08/18/24 at 2100 2020 (Given - Provider: Yue Patterson RN) 1016 (Given - Provider: Sonia Zambrano RN)2099 (Given - Provider: Yue Patterson RN) 0908 [...] - Reason: Patient/family refused - Comment: dr coppola aware patient refused) 0456 (Not Given - Provider: [...] Yue Patterson RN - Reason: Patient/family refused) 191 (Not Given - Provider: Yue Patterson RN [...] 40 mEq, Oral, Daily, First dose on Fri08/14/24 at 1215, Best given with food and plenty of water to minimize gastric irritation. Do not crush or chew. 0854 (Given - Provider: Sonia Zambrano RN) 1018 (Given - Provider: Sonia Zambrano RN) 0906 (Given - Provider: Jacque Clark RN) potassium chloride CR (Klor-Con M10) ER tablet 40 mEq (COMPLETED) 40 mEq, Oral, Once, On Fri08/19/24 at 0800, For 1 dose, Best given [...] Patient/family refused - Comment: dr adelia huff) spironolactone (Aldactone) tablet 25 mg 25 mg, [...] dose on Fri10/04/24 at 1900, Until Discontinued 1900 (Given - Provider: Stephy Quezada RN) 0940 (Given - Provider: Penelope Chaidez RN)2030 (Given - Provider: Gayla Martinez RN) 0958 (Hold/Not Given - Provider: Penelope Chaidez RN - Reason: Patient refused - Comment: pt spitting up meds)2100 (Due) Apixaban (ELIQUIS) tablet 5 mg, Oral, 2 TIMES DAILY, First dose on Fri10/04/24 at 1900, Until Discontinued 1900 (Given - Provider: Stephy Quezada RN) 0940 (Given - Provider: Penelope Chaidez RN)2030 (Given - Provider: Gayla Martinez RN) 0958 (Hold/Not Given - Provider: Penelope Chaidez RN - Reason: Patient refused - Comment: pt spitting up meds. MD Nova notified)2100 (Due) bumetanide (BUMEX) tablet 2 mg, Oral, DAILY, First dose on Fri10/05/24 at 1400, Until Discontinued 1412 (Given - Provider: Penelope Chaidez RN) 0958 (Hold/Not Given - Provider: Penelope Chaidez RN - Reason: Patient refused - Comment: pt spitting up meds. MD Nova notified) doxycycline (VIBRA-TABS) 100 MG tablet (CANCELED) 100 mg, Oral, 2 TIMES DAILY, 9 doses, First dose on Fri10/01/24 at 0900, Last dose on Fri10/05/24 at 0900 1100 (Hold/Not Given - Provider: Xenia Taylor RN - Reason: Patient refused)2348 (Given - Provider: Jessenia Zhong RN) doxycycline (VIBRA-TABS) 100 MG tablet 100 mg, Oral, 2 TIMES DAILY, 8 doses, First dose (after last modification) on Fri10/05/24 at 0900, Last dose on Fri10/08/24 at 2100 0940 (Given - Provider: Penelope Chaidez RN)2031 (Given - Provider: Gayla Martinez RN) 0958 [...] (Patch Applied - Provider: Xenia Taylor RN)1756 (AUG Hold - Provider: Lucy Gross - Reason: Patient Transfer) 045 (Patch Removal - Provider: Jessenia Zhong RN)1414 (AUG Unhold - Provider: Eugene Nova MD) lidocaine [...] PRN, Starting on 10/02/24 at 0030, Until Fri10/05/24 at 1242, Severe [...] notified) 0900 (Hold/Not Given - Provider: Giselle Pierer RN - Reason: Patient refused) cholecalciferol (VITAMIN [...] Patient refused)1300 (Hold/Not Given - Provider: Giselle Kovalchek, RN - Reason: Patient refused)1700 (Due) linezolid [...] score 7,8,9,10) 1542 (Given - Provider: Ana Berger RN) guaiFENesin (ROBITUSSIN) 100 MG/5ML oral solution 10 mL (200 mg), Oral, EVERY 4 HOURS PRN, Starting on Fri10/18/24 at 0525, Until Discontinued, Cough nitroglycerin (NITROSTAT) 0.4 MG sublingual tablet 0.4 mg, Sublingual, EVERY 5 MIN PRN, Starting on Fri10/18/24 at 0506, Until Discontinued, Chest pain Care Teams (unrecognized sec tion and content) Phlebotomy Coordinator Relationship Specialty Start Date End Date Dia Gaitan RN Registered Nurse Cardiology 03/02/24 Phlebotomy Coordinator Relationship Specialty Start Date End Date Dia Gaitan RN Registered Nurse Cardiology 03/02/24 Phlebotomy Coordinator Relationship Specialty Start Date End Date Dia Gaitan RN Registered Nurse Cardiology 03/02/24 Phlebotomy Coordinator Relationship Specialty Start Date End Date Dia Gaitan RN Registered Nurse Cardiology 03/02/24 Phlebotomy Coordinator Relationship Specialty Start Date End Date Dia Gaitan, RN Registered Nurse Cardiology 03/02/24 Phlebotomy Coordinator Relationship Specialty Start Date End Date Dia Gaitan RN Registered Nurse Cardiology 03/02/24 Phlebotomy Coordinator Relationship Specialty Start Date End Date Dia Gaitan RN Registered Nurse Cardiology 03/02/24 Phlebotomy Coordinator Relationship Specialty Start Date End Date Dia Gaitan RN Registered Nurse Cardiology 03/02/24 Phlebotomy Coordinator Relationship Specialty Start Date End Date Dia Gaitan RN Registered Nurse Cardiology 03/02/24 Phlebotomy Coordinator Relationship Specialty Start Date End Date Dia Gaitan RN Registered Nurse Cardiology 03/02/24 Phlebotomy Coordinator Relationship Specialty Start Date End Date Dia Gaitan RN Registered Nurse Cardiology 03/02/24 Phlebotomy Coordinator Relationship Specialty Start Date End Date Dia Gaitan RN Registered Nurse Cardiology 03/02/24 Phlebotomy Coordinator Relationship Specialty Start Date End Date Dia Gaitan RN Registered Nurse Cardiology 03/02/24 Phlebotomy Coordinator Relationship Specialty Start Date End Date Dia Gaitan RN Registered Nurse Cardiology 03/02/24 Phlebotomy Coordinator Relationship Specialty Start Date End Date Dia Gaitan RN Registered Nurse Cardiology 03/02/24 Phlebotomy Coordinator Relationship Specialty Start Date End Date Dia Gaitan, RN Registered Nurse Cardiology 03/02/24 None, Pcp [address] [place] [id number] Urgent Care 06/07/24 Phlebotomy Coordinator Relationship Specialty Start Date End Date Dia Gaitan, RN Registered Nurse Cardiology 03/02/24 None, Pcp [address] [place] [address] Urgent Care 06/07/24 Phlebotomy Coordinator Relationship Specialty Start Date End Date Dia Gaitan RN Registered Nurse Cardiology 03/02/24 None, Pcp [address] [place] [address] Urgent Care 06/07/24 Phlebotomy Coordinator Relationship Specialty Start Date End Date Dia Gaitan RN Registered Nurse Cardiology 03/02/24 None, Pcp [address] [place] [address] Urgent Care 06/07/24 Phlebotomy Coordinator Relationship Specialty Start Date End Date Dia Gaitan RN Registered Nurse Cardiology 03/02/24 None, Pcp [address] [place] [address] Urgent Care 06/07/24 Phlebotomy Coordinator Relationship Specialty Start Date End Date Dia Gaitan RN Registered Nurse Cardiology 03/02/24 None, Pcp [address] [place] [address] Urgent Care 06/07/24 Phlebotomy Coordinator Relationship Specialty Start Date End Date Dia Gaitan RN Registered Nurse Cardiology 03/02/24 None, Pcp [address] [place] [address] Urgent Care 06/07/24 Phlebotomy Coordinator Relationship Specialty Start Date End Date Dia Gaitan, RN Registered Nurse Cardiology 03/02/24 None, Pcp [address] [place] [address] Urgent Care 06/07/24 Phlebotomy Coordinator Relationship Specialty Start Date End Date Dia Gaitan RN Registered Nurse Cardiology 03/02/24 None, Pcp [address] [place] [address] Urgent Care 06/07/24 Phlebotomy Coordinator Relationship Specialty Start Date End Date Gabelt, Dia C., RN Registered Nurse Cardiology 03/02/24 None, Pcp [address] [place] [address] Urgent Care 06/07/24 Phlebotomy Coordinator Relationship Specialty Start Date End Date Dia Gaitan RN Registered Nurse Cardiology 03/02/24 None, Pcp [address] [place] [address] Urgent Care 06/07/24 Phlebotomy Coordinator Relationship Specialty Start Date End Date Dia Gaitan RN Registered Nurse Cardiology 03/02/24 None, Pcp [address] [place] [address] Urgent Care 06/07/24 Phlebotomy Coordinator Relationship Specialty Start Date End Date Dia Gaitan RN Registered Nurse Cardiology 03/02/24 None, Pcp [address] [place] [address] Urgent Care 06/07/24 Phlebotomy Coordinator Relationship Specialty Start Date End Date Dia Gaitan RN Registered Nurse Cardiology 03/02/24 None, Pcp [address] [place] [address] Urgent Care 06/07/24 Phlebotomy Coordinator Relationship Specialty Start Date End Date Dia Gaitan RN Registered Nurse Cardiology 03/02/24 None, Pcp [address] [place] [address] Urgent Care 06/07/24 Earline Addison, RN Registered Nurse Hot Mill Supervisor Manager 07/26/24 Phlebotomy Coordinator Relationship Specialty Start Date End Date Dia Gaitan RN Registered Nurse Cardiology 03/02/24 None, Pcp [address] [place] [address] Urgent Care 06/07/24 Earline Addison, RN Registered Nurse Hot Mill Supervisor Manager 07/26/24 Phlebotomy Coordinator Relationship Specialty Start Date End Date Dia Gaitan RN Registered Nurse Cardiology 03/02/24 None, Pcp [address] [place] [address] Urgent Care 06/07/24 Earline Addison, RN Registered Nurse Hot Mill Supervisor Manager 07/26/24 Phlebotomy Coordinator Relationship Specialty Start Date End Date Dia Gaitan RN Registered Nurse Cardiology 03/02/24 None, Pcp [address] [place] [address] Urgent Care 06/07/24 Earline Addison RN Registered Nurse Hot Mill Supervisor Manager 07/26/24 Phlebotomy Coordinator Relationship Specialty Start Date End Date Dia Gaitan, RN Registered Nurse Cardiology 03/02/24 None, Pcp [address] [place] [address] Urgent Care 06/07/24 Earline Addison, RN Registered Nurse Hot Mill Supervisor Manager 07/26/24 Phlebotomy Coordinator Relationship Specialty Start Date End Date Dia Gaitan, RN Registered Nurse Cardiology 03/02/24 None, Pcp [address] [place] [address] Urgent Care 06/07/24 Earline Addison, RN Registered Nurse Hot Mill Supervisor Manager 07/26/24 Phlebotomy Coordinator Relationship Specialty Start Date End Date Dia Gaitan, RN Registered Nurse Cardiology 03/02/24 None, Pcp [address] [place] [address] Urgent Care 06/07/24 Earline Addison, RN Registered Nurse Hot Mill Supervisor Manager 07/26/24 Phlebotomy Coordinator Relationship Specialty Start Date End Date Dia Gaitan, RN Registered Nurse Cardiology 03/02/24 None, Pcp [address] [place] [address] Urgent Care 06/07/24 Phlebotomy Coordinator Relationship Specialty Start Date End Date Dia Gaitan, RN Registered Nurse Cardiology 03/02/24 None, Pcp [address] [place] [address] Urgent Care 06/07/24 Earline Addison RN Registered Nurse Hot Mill Supervisor Manager 07/26/24 Phlebotomy Coordinator Relationship Specialty Start Date End Date Dia Gaitan RN Registered Nurse Cardiology 03/02/24 None, Pcp [address] [place] [address] Urgent Care 06/07/24 Earline Addison RN Registered Nurse Hot Mill Supervisor Manager 07/26/24 Phlebotomy Coordinator Relationship Specialty Start Date End Date Dia Gaitan RN Registered Nurse Cardiology 03/02/24 None, Pcp [address] [place] [address] Urgent Care 06/07/24 Earline Addison RN Registered Nurse Hot Mill Supervisor Manager 07/26/24 Phlebotomy Coordinator Relationship Specialty Start Date End Date Dia Gaitan RN Registered Nurse Cardiology 03/02/24 None, Pcp [address] [place] [address] Urgent Care 06/07/24 Earline Addison RN Registered Nurse Hot Mill Supervisor Manager 07/26/24 Phlebotomy Coordinator Relationship Specialty Start Date End Date Dia Gaitan, RN Registered Nurse Cardiology 03/02/24 None, Pcp [address] [place] [address] Urgent Care 06/07/24 Earline Addison RN Registered Nurse Hot Mill Supervisor Manager 07/26/24 Phlebotomy Coordinator Relationship Specialty Start Date End Date Dia Gaitan, RN Registered Nurse Cardiology 03/02/24 None, Pcp [address] [place] [address] Urgent Care 06/07/24 Phlebotomy Coordinator Relationship Specialty Start Date End Date Dia Gaitan, RN Registered Nurse Cardiology 03/02/24 None, Pcp [address] [place] [address] Urgent Care 06/07/24 Earline Addison RN Registered Nurse Hot Mill Supervisor Manager 07/26/24 08/24/24 Phlebotomy Coordinator Relationship Specialty Start Date End Date Dia Gaitan, RN Registered Nurse Cardiology 03/02/24 None, Pcp [address] [place] [address] Urgent Care 06/07/24 Phlebotomy Coordinator Relationship Specialty Start Date End Date Yuval Gayle MD [address] [place] [address] [place] [address] PCP - General Family Medicine 08/27/24 Phlebotomy Coordinator Relationship Specialty Start Date End Date Yuval Gayle MD [address] [place] [address] [place] [address] PCP - General Family Medicine 08/27/24 Phlebotomy Coordinator Relationship Specialty Start Date End Date Yuval Gayle MD [address] [place] [address] [place] [address] PCP - General Family Medicine 08/27/24 Phlebotomy Coordinator Relationship Specialty Start Date End Date Yuval Gayle MD [address] [place] [address] [place] [address] PCP - General Family Medicine 08/27/24 Phlebotomy Coordinator Relationship Specialty Start Date End Date Yuval Gayle MD [address] [place] [address] [place] [address] PCP - General Family Medicine 08/27/24 Phlebotomy Coordinator Relationship Specialty Start Date End Date Yuval Gayle MD [address] [place] [address] [place] [address] PCP - General Family Medicine 08/27/24 Phlebotomy Coordinator Relationship Specialty Start Date End Date Yuval Gayle MD [address] [place] [address] [place] [address] PCP - General Family Medicine 08/27/24 Phlebotomy Coordinator Relationship Specialty Start Date End Date Yuavl Gayle MD [address] [place] [address] [place] [address] PCP - General Family Medicine 08/27/24 Phlebotomy Coordinator Relationship Specialty Start Date End Date Yuval Gayle MD [address] [place] [address] [place] [address] PCP - General Family Medicine 08/27/24 Phlebotomy Coordinator Relationship Specialty Start Date End Date Yuval Gayle MD [address] [place] [address] [place] [address] PCP - General Family Medicine 08/27/24 Phlebotomy Coordinator Relationship Specialty Start Date End Date Yuval Gayle MD [address] [place] [address] [place] [address] PCP - General Family Medicine 08/27/24 Phlebotomy Coordinator Relationship Specialty Start Date End Date Yuval Gayle MD [address] [place] [address] [place] [address] PCP - General Family Medicine 08/27/24 Phlebotomy Coordinator Relationship Specialty Start Date End Date Yuval Gayle MD [address] [place] [address] [place] [address] PCP - General Family Medicine 08/27/24 Phlebotomy Coordinator Relationship Specialty Start Date End Date Yuval Gayle MD [address] [place] [address] [place] [id number] PCP - General Family Medicine 08/27/24 Team [...] : January 04, 2025 Dr. Eugene Bucio DO Other Provider Active Sta rt: January 04, 2025 Dr. Deja Gregorio MD Other Provider Active Start : January 04, 2025 Dr. Kaitlin Golden MD Other Provider Active St art: January 04, 2025 Kalie Caruso NP-C Other Provider Active Sta rt: January 04, 2025 Jennifer Santiago NP, BASE WAD OPERATOR ADJUSTER-C Other Provider Active Start: January 04, 2025 [...] rt: January 09, 2025 Jennifer Santiago NP, BASE WAD OPERATOR ADJUSTER-C Other Provider Active Start: January 09, 2025 IVIS Mcnair Other Provider Active Start: 2024 Team Status: Active Member Role/Relationship Status Dates No Primary Care Physician Primary Care Provider Active Start: January 10, 2025 Dr. Lavon Campo MD Attending Provider Active S tart: January 10, 2025 Team Status: Inactive Member Role/Relationship Status Dates Dr. Deborah Penaloza [...] End: January 10, 2025 Dr. Eugene Bucio DO Other Provider Active Sta rt: January 04, 2025 End: January 10, 2025 Dr. Deja Gregorio MD Other Provider Active Start : January 04, 2025 End: January 10, 2025 Dr. Kaitlin Golden MD Other Provider Active St art: January 04, 2025 End: January 10, 2025 Kalie Caruso NP-C Other Provider Active Sta rt: January 04, 2025 End: January 10, 2025 Jennifer Santiago NP, BASE WAD OPERATOR ADJUSTER-C Other Provider Active Start: January 04, 2025 End: January 10, 2025 IVIS Mcnair Other Provider Active Start: 2024 End: January 10, 2025 Team Status: Active Member Role/Relationship Status Dates Dr. Deborah Penaloza DO Emergency Provider Active Start: January 10, 2025 No Primary Care Physician Primary Care Provider Active Start: January 10, 2025 Dr. Anshul Lemus , Admit Provider Active Star t: January 10, [...] Provider Active St art: January 10, 2025 Kalie Caruso BASE WAD OPERATOR ADJUSTER-C Other Provider Active Sta rt: January 10, 2025 Jennifer Santiago NP, BASE WAD OPERATOR ADJUSTER-C Other Provider Active Start: January 10, 2025 IVIS Mcnair Other Provider Active Start: 2024 Team Status: Active Member Role/Relationship Status Dates No Primary Care Physician Primary Care Provider Active Start: January 10, 2025 Dr. Lavon Campo MD Attending Provider Active S tart: January 10, 2025 Team Status: Inactive Member Role/Relationship Status Dates No Primary Care Physician Primary Care Provider Active Start: January 29, 2025 End: January 29, 2025 Dr. Vargas Rea DO Emergency Provider Active Start: January 29, 2025 End: January 29, 2025 Team Status: Inactive Member Role/Relationship Status Dates No Primary Care Physician Primary Care Provider Active Start: January 29, 2025 End: January 29, 2025 Dr. Vargas Rea DO Attending Provider Active Start: January 29, 2025 End: January 29, 2025 Dr. Vargas Rea DO Emergency Provider Active Start: January 29, 2025 End: January 29, 2025 Team Status: Inactive Member Role/Relationship Status Dates No Primary Care Physician Primary Care Provider Active Start: February 10, 2025 End: February 10, 2025 No Primary Care Physician Referring Provider Active Start: February 10, 2025 End: February 10, 2025 Dr. Joel Berg MD Attending Provider Active Start: February 10, 2025 End: February 10, 2025 (unrecognized sect ion and content) No Status Records FoundNo Status Records FoundNo Status Records FoundNo Status Records FoundNo Status Records FoundNo Status Records Found INFORMATION SOURCE (unrecogn ized section and content) DATE CREATED AUTHOR 08/26/2024 [facility] DATE CREATED AUTHOR AUTHOR'S ORGANIZ ATION 10/11/2024 [facility] DATE CREATED AUTHOR AUTHOR'S ORGANIZ ATION 01/22/2025 [facility] DATE CREATED AUTHOR AUTHOR'S ORGANIZ ATION 02/07/2025 [facility] DATE CREATED AUTHOR AUTHOR'S ORGANIZ ATION 02/07/2025 [facility] DATE CREATED AUTHOR AUTHOR'S ORGANIZ ATION 02/12/2025 [facility] Source Comments (unrecognize d section and content) In the event this informatio n is protected by the Federal Confidentiality of Alcohol and Drug Abuse Patient Records regulations: The Federal rules restrict any use of the information to criminally investigate or prosecute any alcohol or drug abuse patient.[facility] the event this information is protected by the Federal Confidentiality of Alcohol and Drug Abuse Patient Records regulations: The Federal rules restrict any use of the information to criminally investigate or prosecute any alcohol or drug abuse patient.[facility] Goals (unrecognized section and content) Goals may [...] BE BASED ON THE PRIMARY CLINICAL RECORDS. [facility] [facility]. provides no warranty or guarantee of the accuracy or completeness of information in this document.
--- NOTE | 2025-02-13 18:55 | RAD_ITS ---
PROCEDURE: CHEST PA AND LATERAL 02/13/2025 REASON FOR EXAM: DYSPNEA TECHNIQUE: CHEST PA AND LATERAL COMPARISON: 01/29/2025. FINDINGS: Lungs/Pleura: Clear. No airspace consolidation, pneumothorax or pleural effusion. Heart/Mediastinum: Prominent cardiomegaly. Central vascular congestion. Bones/Soft tissues: Mild degenerative changes of the spine. RAD/Chest PA and Lateral IMPRESSION: Prominent cardiomegaly. No airspace disease or pleural effusion. Reading Location: [id number]
[2025-02-13 18:58] LABS: Hematocrit 41.7 % (40-54); Hemoglobin 13.4 g/dL (13.0-16.5); Immature Granulocytes Count 0.010 X10^3/uL (0.0-0.0); Mean Corp Hgb Conc 32.1 g/dL (32-36); Mean Corpuscular Volume 102.7 fL (80-94); Mean Platelet Vol. 11.2 fl (6.2-12.0); NRBC Flagged by Analyzer 0 % (0-5); POSITIVE COUNT YES; Platelet Count 243 K/mm3 (150-450); RBC Distribution Width CV 16.6 % (11.6-14.6); RBC Distribution Width SD 62.7 fl (35.1-43.9); Red Blood Count 4.06 M/mm3 (4.6-6.2); White Blood Count 6.7 K/mm3 (4.4-11.0)
[2025-02-13 19:05] LABS: Prothrombin Time (Protime)PT. 16.2 SECONDS (11.7-14.9)
[2025-02-13 19:06] LABS: Partial Thromboplast Time 21.2 Seconds (24.1-36.2)
[2025-02-13 19:10] LABS: Differential Indicated SCAN CRITERIA MET; Red Cell Morphology NORM C+C NORMAL (NORM C&C)
[2025-02-13 19:14] LABS: Lipase 17 U/L (13-75); Pro- Brain NATRIURETIC PEPTIDE 28912 pg/mL (<=450)
[2025-02-13 19:19] LABS: AST(SGOT) 39 U/L (<=37); Alanine Aminotransfer ALT/SGPT 24 U/L (<=46); Albumin, Serum 3.5 g/dL (3.5-5.0); Alkaline Phosphatase 570 U/L (40-129); Anion Gap 20 (5-15); BUN 38 mg/dL (4-19); BUN/Creat Ratio 14.6 RATIO (10-20); Calcium,Total 9.1 mg/dL (7.6-11.0); Carbon Dioxide 18.7 mmol/L (21.0-32.0); Chloride 103 mmol/L (98-108); Estimated Creatinine Clearance 39.69 ml/min (50-250); Globulin 3.7 g/dL (2.2-4.2); Glucose 107 mg/dL (70-99); Potassium 4.8 mmol/L (3.3-5.1)
[2025-02-13 20:24] LABS: Mucous, Urine 0 SEEN /hpf (<or=2+)
[2025-02-13 20:26] LABS: Color, Urine Amber (Yellow); Glucose, Dipstick Normal (Normal); Ketone-Dipstick 5 mg/dl (Negative); Leukocyte Esterase-Dipstick 25 /ul (Negative); Nitrite-Dipstick Negative (Negative); Occult Blood-Urine 10 /ul (Negative); Protein-Dipstick 100 mg/dl (Negative); Specific Gravity, Urine 1.025 (1.002-1.030)
[2025-02-13 20:34] LABS: Urine Bilirubin Dipstick 3 mg/dL (Negative)
[2025-02-13 20:35] LABS: Red Blood Cells-Urine 0-5 SEEN /hpf (0-5); Squamous Epithelial Cells - UA 0-5 SEEN /hpf (0-5)
--- NOTE | 2025-02-13 20:47 | CT_ITS ---
PROCEDURE: CT ABDOMEN/PELVIS WITHOUT CONT 02/13/2025 REASON FOR EXAM: ABDOMINAL DISTENTION TECHNIQUE: CT ABDOMEN/PELVIS WITHOUT CONT Noncontrast technique limits evaluation of the abdominal and pelvic viscera. Coronal and Sagittal reconstruction series were provided. One or more dose reduction techniques were used (e.g., Automated exposure control, adjustment of the mA and/or kV according to patient size, use of iterative reconstruction technique). RADIATION DOSE SUMMARY: CTDlvol: 7.43 mGy DLP: 388 mGycm COMPARISON: 01/29/2025 FINDINGS: Lower thorax: Prominent cardiomegaly with small pericardial effusion. Right basilar airspace consolidation may represent pneumonia, such as from aspiration. No basilar pleural effusions. Liver: Grossly unremarkable and normal in size. Gallbladder: Nondilated. No radiodense gallstones. Spleen: Normal in size. Pancreas: Grossly unremarkable, no ductal dilatation. Adrenals: Unremarkable. Kidneys: Unremarkable. No nephrolithiasis or hydronephrosis. Bladder: Underdistended, limiting its evaluation. Reproductive Organs: Unremarkable, nonenlarged prostate. Bowel: Grossly unremarkable with out evidence of obstruction or discrete active inflammatory process. Centralized bowel loops secondary to large volume abdominopelvic ascites. Lymph nodes: No discrete enlarged abdominopelvic lymph nodes. Vasculature: Normal caliber abdominal aorta and IVC. Peritoneum / Retroperitoneum: Large volume simple attenuating abdominopelvic ascites, with distended abdomen. No pneumoperitoneum. Musculoskeletal: Generalized subcutaneous edema. No acute or aggressive osseous abnormality. Mild degenerative changes of the visualized lower thoracic spine. CT/Abdomen/Pelvis without Cont IMPRESSION: Prominent cardiomegaly with small nonspecific pericardial effusion. Generalized fluid overload/third-spacing with diffuse soft tissue edema and large volume abdominopelvic ascites. Patchy consolidation in the right lung base may represent pneumonia, possibly f rom aspiration. Reading Location: [id number]
--- NOTE | 2025-02-13 21:43 | HP.PCM.HOS_ITS ---
[facility] - General General Date of Admission: 02/13/25 Date of Service: 02/13/25 Chief Complaint: Increasing SOB and Worsening Ascites. HPI Narrative CLAIRE WHITESIDE, is a 45 M with a past medical history of essential hypertension; on bumetanide BID, chronic atrial fibrillation; on apixaban BID, chronic systolic CHF; with LVEF ~15-20% with global hypokinesis and stage III diastolic dysfunction, 2-3+ MR and 3+ severe TR on ISMO TID with baseline BNP ~25K, history of LBBB, history of DVT/PE, cirrhosis with ascites of unclear etiology; s/p paracentesis ~2 weeks ago, CKD; stage IIIb, history of intolerance to hydralazine (nausea & vomiting), medical noncompliance and recent admission here from January 24, 2025 to January 10, 2025 for treatment of 2nd degree Mobitz type-2 HB with SOB and edema with ~10 pound weight gain due to AE CHF; with BNP ~25K and patient recommended by hospitalist that admission to have AICD placed due to higher risk of lethal arrhythmia with the patient declining and stating he still wanted to be FULL CODE indicating poor insight into his complex medical condition with patient denying suicidal ideation and he was then treated with IV diuretics and fluid restriction with patient then started on empagliflozin as he cannot tolerate LUCRECIA/ARB due to weak renal function with patient then discharged home with recommendation for hospice consultation who now re-presents to [facility] ER complaining of increasing SOB and worsening ascites. Mr. Whiteside reports his acute symptoms began approximately 2 days prior to admission with gradual-onset of CARRERA that progressed to SOB at rest with increasing edema of lower extremities and worsening ascites. He admits to cough but he denies sputum production, fever, chills, runny nose, sore throat, ear pain, chest pain, nausea, vomiting, diarrhea, constipation, dysuria, hematuria, rash or headache. In the ER he was noted to have an elevated NT pro-BNP II of 28,912 pg/mL with a corresponding CXR that revealed prominent cardiomegaly with no airspace disease or pleural effusion consistent with AE of Chronic Systolic and Diastolic CHF; with LVEF ~15-20% complicated by clinical evidence of Respiratory Insufficiency with patient requiring 2L NC compounded by CT scan of the abdomen and pelvis that showed massive ascites with laboratory evidence of Hyperbilirubinemia; with total bilirubin of 3.79 mg/dL in addition to mildly elevated AST 39 U/L and sharply elevated alkaline phosphatase of 570 U/L in the setting of CKD; stage IIIb with elevated serum creatinine of 2.6 mg/dL, BUN of 38 mg/dL and eGFR of 30 mL/min. He was then admitted to the PCU for ongoing care for a stay that is expected extend beyond 2 midnights. [facility] Medical History CKD stage 3b, GFR 30-44 ml/min HFrEF (heart failure with reduced ejection fraction) Abdominal ascites Elevated bilirubin Left ventricular ejection fraction less than 20% Kidney disease Non-smoker Irregular heart beat DVT (deep venous thrombosis) CKD (chronic kidney disease) Cardiomyopathy Left bundle branch block Noncompliance Pulmonary embolism CHF (congestive heart failure) Home Medications ?Medication ?Instructions ?Recorded ?Last Taken ?Type apixaban 5 mg tablet (Eliquis) 5 mg PO BID blood thinn er 01/04/25 01/28/25 History bumetanide 1 mg tablet 1 mg PO BID water retention 01/04/25 01/28/25 History isosorbide dinitrate 20 mg tablet 20 mg PO Q8H heart 0 01/04/25 01/28/25 History Allergy/AdvReac Type Severity Reaction Status Date / Time No Known Allergies Allergy Verified 02/13/25 17:48 Family History Father Heart disease Brother Heart disease Social History Smoking Status: Never smoker alcohol intake: never substance use type: does not use ROS ROS Narrative Review of Systems: Constitutional: Patient denies fever or chills. Eyes: Patient denies changes in vision or discharge from eyes. ENT: Patient denies runny nose, sore throat or ear pain. Resp: Patient admits to CARRERA that progressed to SOB at rest as per HPI. CV: Patient admits to increasing LE edema but he denies chest pain, palpitations or heart racing. GI: Patient admits to worsening ascites but he denies abdominal pain, nausea, vomiting, diarrhea or constipation. : Patient denies dysuria, hematuria or urinary frequency. MSK: Patient admits to generalized weakness. Skin: Patient denies rash. Psych: Patient denies symptoms of uncontrolled depression or anxiety. Neuro: Patient denies headache, paresthesias or focal neurologic deficits. Allergy: Patient denies lip swelling, tongue swelling or urticaria. Hematology: Patient admits to easy bleeding and bruisability on apixaban. Endocrinology: Patient denies polyuria, polydipsia, polyphagia or heat/cold intolerance. 14 point ROS otherwise negative except for positives noted above in HPI. Vital Signs Vital Signs Vital Signs: 02/13/25 17:48 02/13/25 17:48 02/13/25 17:55 Temperature 97 F L Temperature Source Temporal Pulse Rate 72 55 L Respiratory Rate 16 Respiratory Effort Short of Breath Respiratory Pattern Tachypnea Blood Pressure 99/86 H Blood Pressure Mean 90 Pulse Ox 98 Oxygen Delivery Method Room Air Oxygen Flow Rate (L/min) 02/13/25 18:48 02/13/25 19:00 02/13/25 20:00 Temperature 96.3 F L Temperature Source Temporal Pulse Rate 108 H 114 H Respiratory Rate 29 H 32 H Respiratory Effort Respiratory Pattern Blood Pressure 104/92 H 102/80 Blood Pressure Mean 96 87 Pulse Ox 98 65 94 Oxygen Delivery Method Nasal Cannula Nasal Cannula Nasal Cannula Oxygen Flow Rate (L/min) 2 2 2 Weight Weight: 185 lb 3.013 oz Body Mass Index (BMI) 24.4 Physical Exam Const alert, oriented x3 and average body habitus Constitutional Narrative: Mild distress noted with chronically ill but nontoxic appearance. General Appearance: cooperative HEENT normocephalic, head/scalp atraumatic, hearing grossly normal bilaterally and moist oral mucous membranes Eyes PERRL and EOMs intact bilaterally Neck no lymphadenopathy and supple Resp normal respiratory effort, no retractions, no use of accessory muscles and clear to auscultation bilaterally Cardio regular rate and regular rhythm GI soft to palpation, non-tender and non-distended GI Narrative: Massive ascites noted with positive fluid wave. No guarding or rebound. Extremity Extremity Narrative: ~2-3+ bilateral symmetrical LE edema. Skin Skin Narrative: Patient has no evidence of rash. Neuro oriented x3, CN's II-XII intact bilaterally, moves all extremities and no focal motor deficits Sensorium / Orientation: awake, alert, oriented to person, oriented to place and oriented to time Speech: speech normal Psych affect normal Results Medical Records Data Attestation: I reviewed the patient's medical records Lab / Micro Data Attestation: I reviewed the patient's lab results. 02/14/25 04:30 02/14/25 04:30 Labs: Laboratory Results - last 24 hr 02/13/25 18:40: WBC 6.7, RBC 4.06 L, Hgb 13.4, Hct 41.7, MCV 102.7 H, MCH 33.0 H , MCHC 32.1, RDW Std Deviation 62.7 H, RDW Coeff of Juan 16.6 H, Plt Count 243, MPV 11.2, Immature Gran % (Auto) 0.100, Neut % (Auto) 58.1, Lymph % (Auto) 31.6, Thayer % (Auto) 8.9, Eos % (Auto) 0.4, Baso % (Auto) 0.9, Absolute Neuts (auto) 3.9, Absolute Lymphs (auto) 2.13, Nucleated RBC % 0, Platelet Estimate ADEQUATE, RBC Morphology NORM C+C, PT 16.2 H, INR 1.3, APTT 21.2 L, Sodium 141, Potassium 4.8, Chloride 103, Carbon Dioxide 18.7 L, Anion Gap 20 H, BUN 38 H, Creatinine 2.60 H, Estim Creat Clear Calc 39.69 L, Est GFR (MDRD) Non-Af 30 L, BUN/Creatinine Ratio 14.6, Glucose 107 H, Calcium 9.1, Total Bilirubin 3.79 H, A ST 39 H, ALT 24, Alkaline Phosphatase 570 H, [place] [address] H, Total Protein 7.3, Albumin 3.5, Globulin 3.7, Albumin/Globulin Ratio 1.0, Lipase 17 02/13/25 20:18: Urine Color Chaya, Urine Clarity Clear, Urine pH 5.0, Ur Specific Timblin 1.025, Urine Protein 100 H, Urine Glucose (UA) Normal, Urine Ketones 5 H, Urine Occult Blood 10 H, Urine Nitrite Negative, Urine Bilirubin 3 H, Urine Urobilinogen 4 H, Ur Leukocyte Esterase 25 H, Urine RBC 0-5 SEEN, Urine WBC 0-5 SEEN, Ur Squamous Epith Cells 0-5 SEEN, Urine Bacteria 3+, Hyaline Casts 10-25 SEEN, Urine Mucus 0 SEEN Micro: Microbiology 02/13/25 18:40 Mucosa - Nose SARS-CoV-2, Influenza & RSV (PCR) - Final Imaging Radiology Impression Chest X-Ray 02/13/25 18:55 IMPRESSION: Prominent cardiomegaly. No airspace disease or pleural effusion. Reading Location: [id number] [facility] Imaging Services [address] [place] [id number] Abdomen/Pelvis without Cont MR#: [id number] Acct: [id number] Name: CLAIRE WHITESIDE Rep #: [id number] : 1980 M 45 From: Markie Almodovar MD PCP: Care Physician,No Primary Status: ADM IN Study: Abdomen/Pelvis without Cont Date of Exam: 02/13/25 Exam# [id number] Ordering Dr: Anshul Lopez DO PROCEDURE: CT ABDOMEN/PELVIS WITHOUT CONT 02/13/2025 REASON FOR EXAM: ABDOMINAL DISTENTION TECHNIQUE: CT ABDOMEN/PELVIS WITHOUT CONT Noncontrast technique limits evaluation of the abdominal and pelvic viscera. Coronal and Sagittal reconstruction series were provided. One or more dose reduction techniques were used (e.g., Automated exposure control, adjustment of the mA and/or kV according to patient size, use of iterative reconstruction technique). RADIATION DOSE SUMMARY: CTDlvol: 7.43 mGy DLP: 388 mGycm COMPARISON: 01/29/2025 FINDINGS: Lower thorax: Prominent cardiomegaly with small pericardial effusion. Right basilar airspace consolidation may represent pneumonia, such as from aspiration. No basilar pleural effusions. Liver: Grossly unremarkable and normal in size. Gallbladder: Nondilated. No radiodense gallstones. Spleen: Normal in size. Pancreas: Grossly unremarkable, no ductal dilatation. Adrenals: Unremarkable. Kidneys: Unremarkable. No nephrolithiasis or hydronephrosis. Bladder: Underdistended, limiting its evaluation. Reproductive Organs: Unremarkable, nonenlarged prostate. Bowel: Grossly unremarkable with out evidence of obstruction or discrete active inflammatory process. Centralized bowel loops secondary to large volume abdominopelvic ascites. Lymph nodes: No discrete enlarged abdominopelvic lymph nodes. Vasculature: Normal caliber abdominal aorta and IVC. Peritoneum / Retroperitoneum: Large volume simple attenuating abdominopelvic ascites, with distended abdomen. No pneumoperitoneum. Musculoskeletal: Generalized subcutaneous edema. No acute or aggressive osseous abnormality. Mild degenerative changes of the visualized lower thoracic spine. CT/Abdomen/Pelvis without Cont IMPRESSION: Prominent cardiomegaly with small nonspecific pericardial effusion. Generalized fluid overload/third-spacing with diffuse soft tissue edema and large volume abdominopelvic ascites. Patchy consolidation in the right lung base may represent pneumonia, possibly from aspiration. Reading Location: [id number] CC: Dr. Anshul Lopez, DO; No Primary Care Physician ~ Clinical Psychology Teacher: Signed Assessment & Plan Assessment/Plan (1) HFrEF (heart failure with reduced ejection fraction): (2) Respiratory insufficiency: (3) Abdominal ascites: QUALIFIERS: Ascites type: other type Qualified Code(s): R18.8 - Other ascites (4) Hyperbilirubinemia: (5) Chronic atrial fibrillation: (6) Chronic anticoagulation: (7) Medical non-compliance: (8) CKD stage 3b, GFR 30-44 ml/min: PLAN: Plan 1. Elevated NT pro-BNP II of 28,912 pg/mL with a corresponding CXR that revealed prominent cardiomegaly with no airspace disease or pleural effusion c onsistent with AE of Chronic Systolic and Diastolic CHF; with LVEF ~15-20% with global hypokinesis and stage III diastolic dysfunction, 2-3+ MR and 3+ severe TR on ISMO TID with baseline BNP ~25K - Admit to PCU. Continue with furosemide IV infusion to encourage diuresis plus give IV albumin x 1 to enhance intravascular volume and prevent hypotension or worsening of renal function. Give ondansetron IV prn for nausea and vomiting. Give low-dose acetaminophen prn for [id number] (level 1-5/10) pain or fever. Give morphine IV prn for severe (level 6-10/10) pain. 2. Respiratory Insufficiency with patient requiring 2L NC due to #1 - Wean supplemental oxygen as previous. 3. CT scan of the abdomen and pelvis that showed massive ascites with laboratory evidence of Hyperbilirubinemia; with total bilirubin of 3.79 mg/dL in addition to mildly elevated AST 39 U/L and sharply elevated alkaline phosphatase of 570 U/L complicating #1 & #2 in the setting of recent paracentesis ~2 weeks ago - We will set up therapeutic paracentesis at IR in AM. Finally, we will consult palliative care to see this patient on-rounds in the AM in an effort to minimize further serial readmission for this patient who has relatively poor insight into his complex medical condition. 4. Chronic atrial fibrillation; on apixaban BID adding to the medical complexity of #1 - #3 - Hold apixaban with impending paracentesis and then restart when okay with radiology. 5. Recent admission here from January 24, 2025 to January 10, 2025 for treatment of 2nd degree Mobitz type-2 HB with SOB and edema with ~10 pound weight gain due to AE CHF; with BNP ~25K and patient recommended by hospitalist that admission to have AICD placed due to higher risk of lethal arrhythmia with the patient declining and stating he still wanted to be FULL CODE indicating poor insight into his complex medical condition with patient denying suicidal ideation and he was then treated with IV diuretics and fluid restriction with patient then started on empagliflozin as he cannot tolerate LUCRECIA/ARB due to weak renal function with patient then discharged home with recommendation for hospice consultation in the setting of chronic medical noncompliance - Noted. 6. CKD; stage IIIb with elevated serum creatinine of 2.6 mg/dL, BUN of 38 mg/dL and eGFR of 30 mL/min - Stable. We will avoid potentially nephrotoxic agents. 7. Essential hypertension; on bumetanide BID - Hold oral bumetanide in favor of furosemide IV infusion as outlined in #1. 8. History of LBBB - Noted. 9. History of DVT/PE - Noted. 10. History of intolerance to hydralazine (nausea & vomiting) - This agent will need to be avoided unless it is given IV. 11. DVT/GI prophylaxis - SCD's only with impending paracentesis. Pantoprazole 40 mg IV daily. Total time: Approximately (but not less than) 75 minutes. Update: Shortly after arrival to the ICU this patient refused urinary catheter in spite of having ~1.1L on bladder scan. He also refuses ABG and other interventions but is irrationally insisting he still be Full Code; similar to his last admission. Patient is stubbornly resistant to all sound logic and reason with palliative care consult pending in the AM. Prognosis poor. Charges/Coding Visit Charges Inpatient E&M: 93937 Init Hosp L3
--- NOTE | 2025-02-13 21:46 | EKG12_ITS ---
Test Reason : Blood Pressure : */* mmHG Vent. Rate : 108 BPM Atrial Rate : 108 BPM P-R Int : 152 ms QRS Dur : 150 ms QT Int : 400 ms P-R-T Axes : 83 156 -19 degrees QTcB Int : 536 ms Sinus tachycardia with Fusion complexes Right axis deviation Non-specific intra-ventricular conduction block Minimal voltage criteria for LVH, may be normal variant ( Harrison product ) Abnormal ECG Confirmed by SNOW BOSTON, JULIETTE ([id number]), news copy editor RADHA DUONG ([id number]) on 02/15/2025 6:12:14 AM Referred By: Confirmed By: JULIETTE ADAMSON MD
--- OUTSIDE RECORDS SUMMARY | 2025-02-13 22:16 | XMS RPT_ITS | CCD ---
Author Organization [facility] Care Team Providers Care Financial Systems Administrator Name Role Phone Unavailable Primary Care Provider [...] Unavailable Dr. Eugene Bucio DO Other Provider [phone] Dr. Deja Gregorio MD Other Provider [place]ico BOSTON, Dr. Madrigal Other Provider [phone] Shady AUTOMAT WATCHER-C, Kalie Other Provider Unavailabl conchita Santiago AUTOMAT WATCHER-C, Jennifer Other Provider Janay Centeno Other Provider [...] BURDEN Admitting Unavailable JENN BAKER Attending Unavailable YUVAL GAYLE Primary Care Unavailable CONSULT, IP NEPHROLOGY Consulting Unavailab le CONSULT, IP GASTROENTEROLOGY Consulting Siomaar vailable PROVIDER, UNKNOWN Attending Unavailable PROVIDER, UNKNOWN Admitting Unavailable YUVAL GAYLE Primary Care Unavailable PROVIDER, UNKNOWN Attending Unavailable PROVIDER, UNKNOWN Admitting Unavailable ROBIN, YUVAL Primary Care Unavailable PROVIDER, UNKNOWN Attending Unavailable PROVIDER, UNKNOWN Admitting Unavailable ROBIN, YUVAL Primary Care Unavailable ROBIN, YUVAL Primary Care Unavailable PROVIDER, UNKNOWN Attending Unavailable LANCE ENNIS Admitting Unavailable PROVIDER, UNKNOWN Attending Unavailable PROVIDER, UNKNOWN Admitting Unavailable ROBIN, YUVAL Primary Care Unavailable PROVIDER, UNKNOWN Admitting Unavailable iopamidol (Isovue-370) 76 % injection 75 mL [...] reach optimal image enhancement polyethylene glycol 3350 27589 mg powder for oral solution (16 sources) [...] daily, First dose (after last reorder) on 07/30/24 at 0900, For 3 doses, Best given [...] any LUCRECIA inhibitor dose and sacubitril-valsartan. sennosides, mcc 8.6 mg oral tablet (1 source) Start: [...] Administer over 1 Hours, Continuous, Starting on Fri06/17/24 at 0900, Preprocedure, Administer for 1 hour [...] 0320, For 1 dose sodium zirconium cyclosilicate 39001 mg powder for oral suspension (2 sources) [...] [Chronic kidney disease, stage 3b (HCC)] Onset: Conduction disorders (18 sources) Non-specific intraventricular conduction [...] other diseases of the circulatory system] Onset: Episodic Other circulatory disease (2 sources) Other [...] source) Cough, unspecified; Translations: [Cough, unspecified] Onset: Past or Other Problems Problem Classification Problem [...] Facility Cardiology Visit Reporton Cardiology Visit Report [facility] [address] [facility] [place] [address] OFFICE VISIT Date of Service: 02/10/25 MR#: [id number] Acct: [id number] Name: CARLO MEDINA Rep #: [id number] : 1980 Provider: Dr. Joel davila MD Age/Sex: 44/M Location: [facility] Status: Signed HPI HPI History of Present Illness Details: Patient is a 44-year-old -Tunisian male that comes in with his today for evaluation of his heart failure. The patient was originally diagnosed sometime in the summer or fall 2023 with severe LV dysfunction. He actually underwent left heart catheterization by Dr. Akilah YEE at [facility] which showed normal coronary arteries and EF [...] ms. The patient has been evaluated at [facility] in [place], has been evaluated at [facility] but could not go back there due to insurance issues, and was most recently admitted to [facility] February 01, 2025. 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 Normal [facility] 02-02-2025 [facility] Telephone ([facility]) CARLO MEDINA ([id number]) 1980 M Date Time Provider Department 02/02/25 Nichole VALDEZ [facility] During your visit today, we recorded the following information about you: Nichole Valdez, RN 02/02/2025 1:54 PM Signed The patient was discharged from [facility] 02/01/25 with an order to schedule with [...] Date Reviewed: 01/31/2025 Reviewed by: Amber Day, Manager Learning - Fully Assessed Reason for Visit: Orders [681] Cmt: [facility] - order contact/VM/Letter Prescriptions as of [...] Encounter Status:Closed by Nichole VALDEZ [facility] HNO ID: [id number] Author: JASON CANO MD Service: Hospital Medicine [...] shortness of breath. [facility] to pursue paracentesis and further workup. Patient [...] in his symptoms. 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 Patient previously had extensive workup for ascites. [...] Your Medications These medications were sent to [facility] [address] [address] Hours: Friday-Friday, 8am-7pm, Friday 9am-1pm metoprolol tartrate (short acting) 25 mg tablet These medications were sent to e- [id number] [place] [address] - [address] [place] [address] - [id number] [place] [address] bumetanide 1 mg tablet I have performed the [id number] and relevant services for a total of [...] February 01, 2025 TIME: 1:09 PM Normal [facility] CONSULT PROGon 02-01-2025 CONSULT PROG HNO ID: [id number] Author: SARAH GEORGE APRN.VIKKI Service: ? Author [...] heart failure with reduced ejection fraction to [facility] recently in December 2024 was seen [...] narrow complex QRS. He was admitted to [facility] with lower extremity edema, abdominal bloating, apparently [...] systolic f (more content not included)... Normal [facility] HAV IgM Ser Qlon 02-01-2025 HAV IgM Ql (S) Non-Reactive Normal Nonreactive [place] Comment on above: Order Comment: Sunni reynoso Type: BLOOD SPECIMEN Ordering Facility: [facility] Address: [address] [place] [address] Result Comment: No e vidence of recent infection with Hepatitis A virus. Performed By: #### 2 4325-3 #### [facility] CLIA [id number] [address] [place] [address] HBV core IgM Ser Qlon 2024 HBV core IgM Ql (S) Non-Reactive Normal Nonreactive [facility] Comment on above: Order Comment: Sunni [facility] Type: BLOOD SPECIMEN Ordering Facility: [facility] Address: [address] [place] [address] Result Comment: No e vidence of recent infection with Hepatitis B virus. Should recent infection be suspected, repeat testing may be considered 3-4 weeks after this draw. Performed By: #### 2 4325-3 #### [facility] CLIA [id number] [address] [facility] HBV surface Ag Ser Qlon 08 HBV surface Ag Ql (S) Non-Reactive Normal Nonreactive [facility] Comment on above: Order Comment: Sunni [facility] Type: BLOOD SPECIMEN Ordering Facility: [facility] Address: [address] [place] [address] Performed By: #### 2 4325-3 #### [facility] CLIA [id number] [address] HCV RNA DEENA+probe Qnon 02-01 HCV RNA DEENA+probe Ql Not detected Normal Not detected [facility] Comment on above: Order Comment: Speci men Type: BLOOD SPECIMENOrdering Facility: [facility] Address: [address] [place] [address] Performed By: #### 1 1011-4 ####[facility] [id number] [address] [place] Hepatic function 2000 panelo n 02-01-2025 Albumin [Mass/Vol] 3.1 g/dL Low 3.9-4.9 [facility] Comment on above: Order Comment: Speci men Type: BLOOD SPECIMEN Ordering Facility: [facility] Address: [address] [place] [address] Performed By: #### 2 4325-3 #### [facility] CLIA [id number] [address] ALP [Catalytic activity/Vol] 483 U/L High 38-113 [facility] Comment on above: Order Comment: Speci men Type: BLOOD SPECIMEN Ordering Facility: [facility] Address: [address] [place] [address] Performed By: #### 2 4325-3 #### [facility] CLIA [id number] [address] [place] [address] [place] [facility] ALT With P-5'-P [Catalytic activity/Vol] 12 U/L Normal 10-54 [facility] Comment on above: Order Comment: Speci men Type: BLOOD SPECIMEN Ordering Facility: [facility] Address: [address] [place] [address] Performed By: #### 2 4325-3 #### [facility] CLIA [id number] [address] STATES [facility] AST With P-5'-P [Catalytic activity/Vol] 22 U/L Normal 14-40 [facility] Comment on above: Order Comment: Speci men Type: BLOOD SPECIMEN Ordering Facility: [facility] Address: [address] [place] [address] Performed By: #### 2 4325-3 #### [facility] CLIA [id number] [address] [facility] Bilirubin [Mass/Vol] 2.6 mg/dL High 0.2-1.3 [facility] Comment on above: Order Comment: Speci men Type: BLOOD SPECIMEN Ordering Facility: [facility] Address: [address] [place] [address] Performed By: #### 2 4325-3 #### [facility] CLIA [id number] [address] Bilirubin.conjugated [Mass/Vol] 1.8 mg/dL High <0.3 [facility] Comment on above: Order Comment: Speci men Type: BLOOD SPECIMEN Ordering Facility: [facility] Address: [address] [place] [address] Performed By: #### 2 4325-3 #### [facility] CLIA [id number] [address] Protein [Mass/Vol] 5.8 g/dL Low 6.3-8.0 [facility] Comment on above: Order Comment: Speci men Type: BLOOD SPECIMEN Ordering Facility: [facility] Address: [address] [place] [address] Performed By: #### 2 4325-3 #### [facility] CLIA [id number] [address] NURSING PROGon 02-01-2025 NURSING PROG HNO ID: [id number] Author: TAHMINA CACERES RN Service: Nursing Author Type: Registered Nurse Type: Nursing Progress Note Filed: 02/01/2025 00:21 Note Text: Other: 2250- Patient has a sustained heart rate of 140's. Notified and spoke to Dr.[place] no new orders made. Patient has been refusing his medications (beta blockers). Normal [facility] XOCHITL BY IFA SCREENon 02-01-20 25 Nuclear Ab Ql (S) Negative Normal Negative [place] Comment on above: Order Comment: Sunni reynoso Type: BLOOD SPECIMENOrdering Facility: [facility] Address: [address] [place] [address] Result Comment: Anti -nuclear antibody test is used as an aid in diagnosis of systemic autoimmune diseases. Where positive and clinically warranted, follow-up using disease-specific testing is recommended. Low positive titers are not uncommon with advanced age, certain chronic infections, and malignancies among others. Test methodology: Indirect fluorescence immunoassay (IFA) using HEp-2 cells. Performed By: #### A NAIFS ####[facility] LABCLIA [id number] [address] OF [facility] Albumin Fld-mCncon 5 Albumin (Body fld) [Mass/Vol] 1.8 g/dL Normal See Comment [facility] Comment on above: Order Comment: Sunni reynoso Type: FLUID SPECIMENOrdering Facility: [facility] Address: [address] [place] [address] Result Comment: Body Fluid Albumin may be [...] document C49A. IVIS Lucas: Clinical Laboratory Standards [place]ong: 2007. 2. Diane MONGE. Serum to ascites albumin gradient. UpToDate. 2015. Accessed on October 11, 2015. This test was developed, and its performance characteristics determined by the [facility] Department of Pathology and Laboratory Medicine. It has not been cleared or approved by the FDA. The [facility] Department of Pathology and Laboratory Medicine is regulated under CLIA as qualified to perform high-complexity testing. This test is used for clinical purposes. It should not be regarded as investigational or for research. Performed By: #### 2 881-1 ####[facility] LABCLIA [id number] [address] [address] [facility]#### 1747-5 ####[facility] LABCLIA [id number] [address] [place] [address] [facility] [id number] [place], [place] [address] [place] [address] Amylase Fld-cCncon 5 Amylase (Body fld) [Catalytic activity/Vol] 19 U/L Normal See Comment [facility] Comment on above: Order Comment: Speci men Type: FLUID SPECIMENOrdering Facility: [facility] Address: [address] [place] [address] Result Comment: PLEU RAL FLUIDS: Amylase measurement [...] other clinical and laboratory information. References: 1. Duncan AQUINO, Leia Ta. Body fluid analysis: clinical utility and applicability of published studies to guide interpretation of todays laboratory testing in serous fluids. Crit Rev Clin Lab Sci, 2013;50(4-5):107-124. 2. CLSI. Analysis of Body Fluids in Clinical Chemistry; Approved Guideline. CLSI document C49-A. IVIS Lucas: Clinical Laboratory Standards [place]ong; 2007. 3. Arianne AMEZCUA, Malissa DIAZ, Marcia DJ. Use of cyst fluid CEA, CA19-9, and amylase for evaluation of pancreatic lesions. Clinical Biochemistry. 2009;42:2820-9833. This test was developed, and its performance characteristics determined by the [facility] Department of Pathology and Laboratory Medicine. It has not been cleared or approved by the FDA. The [facility] Department of Pathology and Laboratory Medicine is regulated under CLIA as qualified to perform high-complexity testing. This test is used for clinical purposes. It should not be regarded as investigational or for research. Performed By: #### 1 795-4 ####[facility]IA [id number] [address] Fluid Nom (Body fld) Abdomen Normal [facility] Comment on above: Order Comment: Speci men Type: FLUID SPECIMENOrdering Facility: [facility] Address: [address] [place] [address] Performed By: #### 1 795-4 ####[facility]ORY[facility]IA [id number] [address] Performed By: #### 2 881-1 ####[facility] LABCLIA [id number] [address]#### 1747-5 ####[facility] LABCLIA [id number] [address] LABORATORYCLIA [id number] [address] BODY FLUID CELL COUNTon 08-0 Clarity (Unsp spec) Not Indicated Normal Clear [facility] Comment on above: Order Comment: Speci men Type: FLUID SPECIMENOrdering Facility: [facility] Address: [address] [place] [address] Performed By: #### C CBF, [id number] ####[facility]ORY[facility]IA [id number] [address] Color (Body fld) Not Indicated Normal Yellow [facility] Comment on above: Order Comment: Speci men Type: FLUID SPECIMENOrdering Facility: [facility] Address: [address] [place] [address] Performed By: #### C CBF, [id number] ####[facility] [id number] [address] RBC Manual cnt (Body fld) [#/Vol] <2000 Normal <2000 [facility] Comment on above: Order Comment: Speci men Type: FLUID SPECIMENOrdering Facility: [facility] Address: [address] [place] [address] Performed By: #### C CBF, [id number] ####[facility]ORY[facility]IA [id number] [address] Specimen source Nom (Body fld) Ascites Fluid Normal [facility] Comment on above: Order Comment: Speci men Type: FLUID SPECIMENOrdering Facility: [facility] Address: [address] [place] [address] Performed By: #### C CBF, [id number] ####[facility]ORY[facility]IA [id number] [address] WBC Manual cnt (Body fld) [#/Vol] 137 /uL Normal <1000 [facility] Comment on above: Order Comment: Speci men Type: FLUID SPECIMENOrdering Facility: [facility] Address: [address] [place] [address] Performed By: #### C CBF, [id number] ####[facility] [id number] [address] BRIEF OP NOTon 01-31-2025 BRIEF OP NOT HNO ID: [id number] Author: TRANG JEFFERS APRN.CNP Service: Interventional Radiology Author Type: Nurse Practitioner Type: Brief Op Note Filed: 01/31/2025 08:30 Note Text: BRIEF OP NOTE LOG ID: [id number] Surgery/Procedure Date: 01/31/2025 Incision/Procedure Start Time: 8:15 AM Incision Close/Procedure End Time: 8:28 AM Surgeon(s)/Procedural ist(s) and Pin Ticket Machine Operator(s): Trang Jeffers APRN.CNP Procedure(s): paracentesis Anesthesia: local 5 ml lidocaine Findings: 4600 ml clear yellow fluid; Albumin ordered No, 0 g Estimated Blood Loss: <3 ml Specimens: Yes Complications: none Pre-Op/Pre-Procedure Diagnosis: ascites Post-Op/Post-Procedur e Diagnosis: same SIGNATURE: Trang Jeffers APRN.CNP PATIENT NAME: Carlo Medina DATE: January 31, 2025 TIME: 8:29 AM PAGER/CONTACT #: Normal [facility] Bacteria Fld Culton 02-01-20 25 Bacteria identified Cx Nom (Body fld) CULTURE, BODY FLD: No growth 5 days GRAM STAIN: No organisms seen Few Polymorphonuclear leukocytes Rare Red Blood Cells Gram stain performed on cytospun specimen. [facility] Comment on above: Performed By: #### 6 11-4 #### [facility] CLIA [id number] [address] Bacteria Spec Anaerobe Culto n 01-31-2025 Bacteria identified Anaer cx Nom (Unsp spec) Negative [facility] Comment on above: Performed By: #### 6 35-3 ####[facility]ORY[facility]IA [id number] [address] CONSULT PROGon 01-31-2025 CONSULT PROG HNO ID: [id number] Author: SARAH GEORGE APRN.CNP Service: ? Author Type: Nurse Practitioner Type: [...] heart failure with reduced ejection fraction to [facility] recently in December 2024 was seen [...] narrow complex QRS. He was admitted to [facility] with lower extremity edema, abdominal bloating, apparently [...] Right ventric (more content not included)... Normal [facility] CYTOLOGY NON-GYNon 5 AP DISCLAIMER Normal [facility] Comment on above: Order Comment: Speci men Type: SPECIMEN OBTAINED BY ASPIRATION Ordering Facility: [facility] Address: [address] [place], [place] [address] Result Comment: Lashae lagos Developed Test (LDT) Disclaimer: Performance characteristics of immunohistochemical, immunofluorescent, and chromogenic in-situ hybridization tests have been determined by the performing laboratory within [facility]'s [facility] Pathology and Laboratory Medicine Department ([facility], [facility], [facility], [facility], [facility], [facility], or [facility]) in a manner consistent with CLIA requirements. One or more of these tests may not have been cleared or approved by the FDA. [facility] is regulated under CLIA as qualified to perform high-complexity testing. These tests are used for clinical purposes. These should not be regarded as investigational or for research. Positive and negative controls stain appropriately. Performed By: #### C CARMELLA #### [facility] CLIA [id number] [address] [place] CASE REPORT Normal [facility] Comment on above: Order Comment: Speci men Type: SPECIMEN OBTAINED BY ASPIRATION Ordering Facility: [facility] Address: [address] [place] [address] Result Comment: [facility] Cytology Report Case: [id number] Authorizing Provider: Nic Rosado, Collected: 01/31/2025 08:17 AM Ordering Location: [facility] Received: 01/31/2025 08:50 AM Pathologist: Nabila Das MD Specimen: Peritoneal Fluid. Performed By: #### C YTONON #### [facility] CLIA [id number] [address] CLINICAL HISTORY cirrhosis Normal [facility] Comment on above: Order Comment: Speci men Type: SPECIMEN OBTAINED BY ASPIRATION Ordering Facility: [facility] Address: [address] [place] [address] Performed By: #### C YTONON #### [facility] CLIA [id number] [address] FINAL DIAGNOSIS Normal [facility] Comment on above: Order Comment: Speci men Type: SPECIMEN OBTAINED BY ASPIRATION Ordering Facility: [facility] Address: [address] [place] [address] Result Comment: A - Peritoneal Fluid Negative for malignant cells. The following cell blocks were associated with this case: A1 Cell Block, Formalin Fixed at 1059 EDT Performed By: #### C YTONON #### [facility] CLIA [id number] [address] FINAL PERFORMING LAB Normal [facility] Comment on above: Order Comment: Speci men Type: SPECIMEN OBTAINED BY ASPIRATION Ordering Facility: [facility] Address: [address] [place] [address] Result Comment: Tech nical component, records management clerk screening performed at: [facility], [address] [place] [address] CLIA: [id number] Diagnostic interpretation performed at: [facility], [address] [address] CLIA# [id number] Shipboard Intelligence Analyst: Anshul Bowen MD Performed By: #### C YTONON #### [facility] CLIA [id number] [address] GROSS DESCRIPTION Normal [place] Comment on above: Order Comment: Speci men Type: SPECIMEN OBTAINED BY ASPIRATION Ordering Facility: [facility] Address: [address] [place] [address] Result Comment: A. P eritoneal Fluid. 1500 cc clear yellow fluid . ThinPrep and Cell Block prepared. Performed By: #### C YTONON #### [facility] CLIA [id number] [address] OF [facility] MANUAL DIFFERENTIAL, BODY FL UIDon 01-31-2025 DIF TTL, BODY FLUID 100 cells counted Normal [facility] Comment on above: Order Comment: Speci men Type: FLUID SPECIMENOrdering Facility: [facility] Address: [address] [place] [address] Performed By: #### C CBF, [id number] ####[facility]ORY[facility]IA [id number] [address] [place] LYMPH%, BF 31 % Normal 18-36 [facility] Comment on above: Order Comment: Speci men Type: FLUID SPECIMENOrdering Facility: [facility] Address: [address] [place] [address] Performed By: #### C CBF, [id number] ####[facility]ORY[facility]IA [id number] [address] [place] MACRO%, BF 8 % Low 64-80 [facility] Comment on above: Order Comment: Speci men Type: FLUID SPECIMENOrdering Facility: [facility] Address: [address] [place] [address] Performed By: #### C CBF, [id number] ####[facility] [id number] [address] [place] MESO %, BF 22 % High 0-2 [facility] Comment on above: Order Comment: Speci men Type: FLUID SPECIMENOrdering Facility: [facility] Address: [address] [place] [address] Performed By: #### C CBF, [id number] ####[facility]IA [id number] [address] MONO% BF 14 % Normal [facility] Comment on above: Order Comment: Speci men Type: FLUID SPECIMENOrdering Facility: [facility] Address: [address] [place] [address] Performed By: #### C CBF, [id number] ####[facility] LABORATORYCLIA [id number] [place] [address] [place] NEUT%, BF 25 % High 0-1 [facility] Comment on above: Order Comment: Speci men Type: FLUID SPECIMENOrdering Facility: [facility] Address: [address] [place] [address] Performed By: #### C CBF, [id number] ####[facility] LABORATORYCLIA [id number] [address] Prot Fld-mCncon 01-31-2025 Protein (Body fld) [Mass/Vol] 2.8 g/dL Normal See Comment [facility] Comment on above: Order Comment: Speci men Type: FLUID SPECIMENOrdering Facility: [facility] Address: [address] [place] [address] Result Comment: Sero us fluids: Effusions are [...] document C49A. IVIS Lucas: Clinical Laboratory Standards Delong: 2007. Performed By: #### 2 881-1 ####[facility] LABCLIA [id number] [address] [address] [place]#### 1747-5 ####[facility] LABCLIA [id number] [address] [address] [place] OF AMERICAHENDRICKS REGION[facility] LABORATORYCLIA [id number] [address] [place] US ABD RIGHT UPPER QUADRANTo n 01-31-2025 US ABD RIGHT UPPER QUADRANT * * *Final Report* * * DATE OF EXAM: Jan 31 2025 6:53AM [facility] 1032 - US ABD RIGHT UPPER QUADRANT [...] No gallstones. 4. No bile duct dilatation. Associate Chemist: JOSE Transcribe Date/Time: Jan 31 2025 8:18A Dictated by : NGHIA LOBO MD This examination was interpreted and the report reviewed and electronically signed by: NGHIA LOBO MD on Jan 31 2025 8:21AM EST [id number] N Normal [facility] US ABD SPLEEN -NBon 02-01-20 25 US ABD SPLEEN -NB * * *Final Report* * * DATE OF EXAM: Jan 31 2025 6:53AM [facility] 1232 - US ABD SPLEEN -NB / [...] No gallstones. 4. No bile duct dilatation. Associate Chemist: JOSE Transcribe Date/Time: Jan 31 2025 8:18A Dictated by : NGHIA LOBO MD This examination was interpreted and the report reviewed and electronically signed by: NGHIA LOBO MD on Jan 31 2025 8:21AM EST [id number] N Normal [facility] US PARACENTESIS BIon 025 US PARACENTESIS BI * * *Final Report* * * DATE OF EXAM: Jan 31 2025 8:29AM [facility] 2038 - US PARACENTESIS BI / PROCEDURE [...] prepped, and anesthetized. With ultrasound guidance a 5-Romanian Yueh needle and sheath was passed into the peritoneal space and 4600 cc of straw colored fluid was withdrawn. Specimens were sent for laboratory evaluation. There were no apparent complications. FINDINGS: Ultrasound revealed a generous amount of ascites containing no debris. IMPRESSION: Technically successful ultrasound guided paracentesis yielded 4600 cc of straw colored fluid. Albumin ordered: 0 g. Associate Chemist: [facility] Transcribe Date/Time: Jan 31 2025 8:45A Dictated by : TRANG JEFFERS CNP This examination was interpreted and the report reviewed and electronically signed by: TRANG JEFFERS CNP on Jan 31 2025 8:46AM EST [id number] N Normal [facility] CBC panel Auto (Bld)on 01-30 Erythrocyte distribution width (RBC) [Ratio] 16.2 % High 11.5-15.0 [facility] Comment on above: Order Comment: Speci men Type: BLOOD SPECIMEN [facility] Address: [address] [place] [address] Performed By: #### 2 4325-3 #### [facility] CLIA [id number] [address] Hematocrit (Bld) [Volume fraction] 42.4 % Normal 39.0-51.0 [facility] Comment on above: Order Comment: Speci men Type: BLOOD SPECIMEN [facility] Address: [address] [place] [address] Performed By: #### 2 5-3 #### [facility] CLIA [id number] [address] [facility] Hemoglobin (Bld) [Mass/Vol] 13.4 g/dL Normal 13.0-17.0 [facility] Comment on above: Order Comment: Speci men Type: BLOOD SPECIMEN [facility] Address: [address] [place] [address] Performed By: #### 2 5-3 #### [facility] CLIA [id number] [address] STATES [facility] MCH (RBC) [Entitic mass] 33.2 pg Normal 26.0-34.0 [facility] Comment on above: Order Comment: Speci men Type: BLOOD SPECIMEN [facility] Address: [address] [place] [address] Performed By: #### 2 4325-3 #### [facility] CLIA [id number] [address] MCHC (RBC) [Mass/Vol] 31.6 g/dL Normal 30.5-36.0 [facility] Comment on above: Order Comment: Speci men Type: BLOOD SPECIMEN [facility] Address: [address] [place] [address] Performed By: #### 2 4325-3 #### [facility] CLIA [id number] [address] MCV (RBC) [Entitic vol] 105.0 fL High 80.0-100.0 [facility] Comment on above: Order Comment: Speci men Type: BLOOD SPECIMEN [facility] Address: [address] [place] [address] Performed By: #### 2 4325-3 #### [facility] CLIA [id number] [address] [facility] Nucleated RBC (Bld) [#/Vol] 0.02 10*3/uL High <0.01 [facility] Comment on above: Order Comment: Speci men Type: BLOOD SPECIMEN [facility] Address: [address] [place] [address] Performed By: #### 2 4325-3 #### [facility] CLIA [id number] [address] Platelet mean volume (Bld) [Entitic vol] 10.0 fL Normal 9.0-12.7 [facility] Comment on above: Order Comment: Speci men Type: BLOOD SPECIMEN [facility] Address: [address] [place] [address] Performed By: #### 2 4325-3 #### [facility] CLIA [id number] [address] Platelets (Bld) [#/Vol] 383 10*3/uL Normal 150-400 [facility] Comment on above: Order Comment: Speci men Type: BLOOD SPECIMEN [facility] Address: [address] [place] [address] Performed By: #### 2 4325-3 #### [facility] CLIA [id number] [address] [place] [address] [place] RBC (Bld) [#/Vol] 4.04 10*6/uL Low 4.20-6.00 [facility] Comment on above: Order Comment: Speci men Type: BLOOD SPECIMEN [facility] Address: [address] [place] [address] Performed By: #### 2 4325-3 #### [facility] CLIA [id number] [address] [place] WBC (Bld) [#/Vol] 7.37 10*3/uL Normal 3.70-11.00 [facility] Comment on above: Order Comment: Speci men Type: BLOOD SPECIMEN [facility] Address: [address] [place] [address] Performed By: #### 2 4325-3 #### [facility] CLIA [id number] [address] CONSULTon 01-30-2025 CONSULT HNO ID: [id number] Author: CHAUNCEY GARCIA MD Service: Gastroenterology Author [...] and Bumex, CKD-3, LBBB, DVT, transferred from [place] where he presented with abdominal pain, shortness of breath, cough. 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 Of note, patient admitted at [facility] in August 2024 for similar complaints when extensive work up showed unremarkable/negative viral hepatitis, ceruloplasmin, iron studies, alpha 1 antitrypsin, ASMA, AMA, TSH, HIV1/2, Syphilis. His LFTs have shown elevated bilirubin and mild ALT/AST/ALK P elevation since at least 1 year. CBC with normal platelet count (384 - most recent). Last imaging on [facility] -CT from 08/2024 - no splenomegaly. US [...] and Bumex, CKD-3, LBBB, DVT, transferred from [place] where he presented with abdominal pain, shortness [...] questions. Chauncey Garcia MD 9:47 AM Normal [facility] CONSULT HNO ID: [id number] Author: GUS RESENDEZ MD Service: Clinical Cardiology [...] fraction,, and has had multiple admissions to [facility] (most recent admission to [facility] was in 01/21, where he was [...] than 150 ms. [facility] withlower extremity edema, abdominal bloating. Apparently, [...] tolerate multip (more content not included)... Normal [facility] Comprehensive metabolic 2000 panelon 01-30-2025 Albumin [Mass/Vol] 3.4 g/dL Low 3.9-4.9 [facility] Comment on above: Order Comment: Speci men Type: BLOOD SPECIMEN [facility] Address: [address] [place] [address] Performed By: #### 2 5-3 #### [facility] CLIA [id number] [address] STATES [facility] ALP [Catalytic activity/Vol] 436 U/L High 38-113 [facility] Comment on above: Order Comment: Speci men Type: BLOOD SPECIMEN [facility] Address: [address] [place] [address] Performed By: #### 2 5-3 #### [facility] CLIA [id number] [address] ALT With P-5'-P [Catalytic activity/Vol] 10 U/L Normal 10-54 [facility] Comment on above: Order Comment: Speci men Type: BLOOD SPECIMEN [facility] Address: [address] [place] [address] Performed By: #### 2 5-3 #### [facility] CLIA [id number] [address] STATES [facility] Anion gap [Moles/Vol] 17 mmol/L High 8-15 [facility] Comment on above: Order Comment: Speci men Type: BLOOD SPECIMEN [facility] Address: [address] [place] [address] Performed By: #### 2 5-3 #### [facility] CLIA [id number] [address] [facility] AST With P-5'-P [Catalytic activity/Vol] 15 U/L Normal 14-40 [facility] Comment on above: Order Comment: Speci men Type: BLOOD SPECIMEN [facility] Address: [address] [place] [address] Performed By: #### 2 4325-3 #### [facility] CLIA [id number] [address] [place] Bilirubin [Mass/Vol] 3.8 mg/dL High 0.2-1.3 [facility] Comment on above: Order Comment: Speci men Type: BLOOD SPECIMEN [facility] Address: [address] [place] [address] Performed By: #### 2 4325-3 #### [facility] CLIA [id number] [address] [place] Calcium [Mass/Vol] 9.1 mg/dL Normal 8.5-10.2 [facility] Comment on above: Order Comment: Speci men Type: BLOOD SPECIMEN [facility] Address: [address] [place] [address] Performed By: #### 2 4325-3 #### [facility] CLIA [id number] [address] [place] [address] [place] Chloride [Moles/Vol] 104 mmol/L Normal 98-107 [facility] Comment on above: Order Comment: Speci men Type: BLOOD SPECIMEN [facility] Address: [address] [place] [address] Performed By: #### 2 4325-3 #### [facility] CLIA [id number] [address] [place] [address] [place] CO2 [Moles/Vol] 23 mmol/L Normal 22-30 [facility] Comment on above: Order Comment: Speci men Type: BLOOD SPECIMEN [facility] Address: [address] [place] [address] Performed By: #### 2 4325-3 #### [facility] CLIA [id number] [address] [place] [address] [place] Creatinine [Mass/Vol] 2.24 mg/dL High 0.73-1.22 [facility] Comment on above: Order Comment: Sunni reynoso Type: BLOOD SPECIMEN [facility] Address: [address] [place] [address] Performed By: #### 2 4325-3 #### [facility] CLIA [id number] [address] [place] eGFRcr SerPlBld CKD-EPI 2020 36 mL/min/1.73m??? Low >=60 [facility] Comment on above: Order Comment: Sunni reynoso Type: BLOOD SPECIMEN [facility] Address: [address] [place] [address] Result Comment: Ella mated Glomerular Filtration Rate [...] GFR. Performed By: #### 2 4325-3 #### [facility] CLIA [id number] [address] [place] Glucose [Mass/Vol] 101 mg/dL High 74-99 [facility] Comment on above: Order Comment: Sunni reynoso Type: BLOOD SPECIMEN [facility] Address: [address] [place] [address] Result Comment: The [place] Diabetes Association (ADA) provides guidance for cutoff [...] Standards of Medical Care in Diabetes 2016, [place] [employer] Association. Diabetes Care. 2016.39(Suppl 1). Performed By: #### 2 4325-3 #### [facility] CLIA [id number] [address] STATES [facility] Potassium [Moles/Vol] 4.0 mmol/L Normal 3.7-5.1 [facility] Comment on above: Order Comment: Speci men Type: BLOOD SPECIMEN [facility] Address: [address] [place] [address] Performed By: #### 2 4325-3 #### [facility] CLIA [id number] [address] STATES [facility] Protein [Mass/Vol] 6.6 g/dL Normal 6.3-8.0 [facility] Comment on above: Order Comment: Speci men Type: BLOOD SPECIMEN [facility] Address: [address] [place] [address] Performed By: #### 2 4325-3 #### [facility] CLIA [id number] [address] STATES [facility] Sodium [Moles/Vol] 144 mmol/L Normal 136-144 [facility] Comment on above: Order Comment: Speci men Type: BLOOD SPECIMEN [facility] Address: [address] [place] [address] Performed By: #### 2 5-3 #### [facility] CLIA [id number] [address] [place] Urea nitrogen [Mass/Vol] 31 mg/dL High 9-24 [facility] Comment on above: Order Comment: Speci men Type: BLOOD SPECIMEN [facility] Address: [address] [place] [address] Performed By: #### 2 4325-3 #### [facility] CLIA [id number] [address] [place] DIRECT BILIRUBIN BLOODon Bilirubin.conjugated [Mass/Vol] 2.6 mg/dL High <0.3 [facility] Comment on above: Order Comment: Speci men Type: BLOOD SPECIMEN [facility] Address: [facility] [place] [address] Performed By: #### 2 4325-3 #### [facility] CLIA [id number] [address] [place] ECG COMPLETEon 01-30-2025 ECG COMPLETE Ventricular Rate : 9 5 BPM Atrial Rate : 95 BPM P-R Interval : 144 ms QRS Duration : 156 ms Q-T Interval : 442 ms QTC Calculation(Bazett) : 555 ms Calculated P Arden : 71 degrees Calculated R Arden : 153 degrees Calculated T Arden : -29 degrees SINUS RHYTHM WITH PREMATURE ATRIAL COMPLEXES WITH ABERRANT CONDUCTION POSSIBLE LEFT ATRIAL ENLARGEMENT NON-SPECIFIC INTRA-VENTRICULAR CONDUCTION BLOCK POOR R WAVE PROGRESSION WHEN COMPARED WITH ECG OF 22-Aug-2024 21:24, ABERRANT CONDUCTION IS NOW PRESENT QUESTIONABLE CHANGE IN QRS AXIS T WAVE INVERSION NOW EVIDENT IN INFERIOR LEADS Confirmed by MD SOOD DAVID ([id number]) on 01/31/2025 8:37:57 AM NAME : CARLO MEDINA PID : [id number] : 1980 Gender : Male Race : ORD : [id number] Procedure Date : Jan 30 2025 00:20:12 [...] INFERIOR LEADS Confirmed by MD SOOD DAVID ([id number]) on 01/31/2025 8:37:57 AM Test Reason : Shortness of Breath Location : 200 : [facility] 410 Overread By : MD SOOD DAVID Edited By : MD SOOD DAVID Referred By : VARGAS REA Acquired by : TIKA MURILLO [facility] HIGH SENSITIVITY TROPONIN To n 01-30-2025 Troponin T.cardiac High sensitivity method [Mass/Vol] 43 ng/L High <12 [facility] Comment on above: Order Comment: Speci men Type: BLOOD SPECIMENOrdering Facility: [facility] Address: [address] [place] [address] Performed By: #### H STNT ####[facility]ORY[facility]IA [id number] [address] Troponin T.cardiac High sensitivity method [Mass/Vol] 48 ng/L High <12 [facility] Comment on above: Order Comment: Speci men Type: BLOOD SPECIMENOrdering Facility: [facility] Address: [address] [place] [address] Performed By: #### H STNT ####[facility]ORYCLIA [id number] [address] [place] Magnesium SerPl-mCncon 01-30 Magnesium [Mass/Vol] 2.3 mg/dL Normal 1.7-2.3 [facility] Comment on above: Order Comment: Speci men Type: BLOOD SPECIMEN [facility] Address: [address] [place] [address] Performed By: #### 2 4325-3 #### [facility] CLIA [id number] [address] [facility]BNP [facility] 01-30 Natriuretic peptide.B prohormone N-Terminal [Mass/Vol] 87085 pg/mL High <125 [facility] Comment on above: Order Comment: Speci men Type: BLOOD SPECIMENOrdering Facility: [facility] Address: [address] [place] [address] Performed By: #### D EVANS, 04849-8, 26285-3, 11986-1 ####[facility]ORYCLIA [id number] [place] [address] [place] NURSING PROGon 01-30-2025 NURSING PROG HNO ID: [id number] Author: MARYJANE HERCULES RN Service: Nursing Author [...] physician know as well as cardiology. Normal [facility] PT panel Coag (PPP)on 2024 INR Coag (PPP) [Relative time] 1.4 {INR} High 0.9-1.3 [facility] Comment on above: Order Comment: Sunni reynoso Type: BLOOD SPECIMENOrdering Facility: [facility] Address: [address] [place] [address] Result Comment: Gayla min K Antagonist (VKA) Therapeutic Range: INR 2 to 3 (Target INR of 2.5) Note: For patients treated with VKA drugs, such as warfarin, the [place] [employer] 2012 Guideline recommends [...] Chest 2012, 141:7S-47S Evelyn RA, et al. [facility] 2017, 70: 252-289 Performed By: #### 1 4979-9, 49055-4 ####[facility]ORYCLIA [id number] [place] [address] [place] PT Coag (PPP) [Time] 15.0 s High 9.7-13.0 [facility] Comment on above: Order Comment: Sunni reynoso Type: BLOOD SPECIMENOrdering Facility: [facility] Address: [address] [place] [address] [place] [address] Performed By: #### 1 4979-9, 88360-8 ####[facility]ORYCLIA [id number] [place] [address] [facility] XR CHEST 1V FRONTALon 2024 XR CHEST [...] 1. No acute findings. 2. Unchanged cardiomegaly. Associate Chemist: PSCB Transcribe Date/Time: Jan 30 2025 1:59A Dictated by : ALONZO JJ MD This examination was interpreted and the report reviewed and electronically signed by: ALONZO JJ MD on Jan 30 2025 2:01AM EST [id number] N Normal [facility] aPTT PPPon 01-30-2025 aPTT Coag (PPP) [Time] 31.1 s Normal 23.0-32.4 [facility] Comment on above: Order Comment: Speci men Type: BLOOD SPECIMENOrdering Facility: [facility] Address: [address] [place] [address] Performed By: #### 1 4979-9, 68975-0 ####[facility]ORYCLIA [id number] [place] [address] [facility] 12 Lead EKGon 01-29-2025 12 Lead EKG [facility] Cardiovascular Services [address] [place] [address] 12 Lead EKG 01/29/25 0814 MR#: [id number] Acct: [id number] Name: CARLO MEDINA Rep #: [id number] : 1980 44 From: Clark Almaraz MD [...] Confirmed by CLARK ALMARAZ MD ([id number]), editorial cartoonist RADHA DUONG ([id number]) on 02/01/2025 7:54:42 AM Referred By: Confirmed By: CLARK ALMARAZ MD 02/01/25 0754 Date Clark Almaraz MD CC: Dr. Vargas Rea DO; No Primary Care Physician Signed Normal [facility] Abdomen Completeon Abdomen Complete [facility] Imaging Services [address] [place] [address] Abdomen Complete MR#: [id number] Acct: [id number] Name: CARLO MEDINA Rep #: [id number] : 1980 M 44 From: Leatha Wallace nd, MD PCP: Care Physician,No Primary Status: REG ER Study: Abdomen Complete Date of Exam: 01/29/25 Exam# [id number] Ordering Dr: Vargas Rea DO PROCEDURE: ABDOMEN [...] further evaluation as clinically indicated. Reading Location: [id number] CC: Dr. Vargas Rea DO; No Primary Care Physician Associate Chemist: Signed Normal [facility] Abdomen/Pelvis W IV Cont ONL Yon 01-29-2025 Abdomen/Pelvis W IV Cont ONLY [facility] Imaging Services [address] [place] [address] [id number] Abdomen/Pelvis W IV Cont ONLY MR#: [id number] Acct: [id number] Name: CARLO MEDINA Rep #: [id number] : 1980 M 44 From: Leatha Wallace nd, MD PCP: Care Physician,No Primary Status: REG ER Study: Abdomen/Pelvis W IV Cont ONLY Date of Exam: Exam# [id number] Ordering Dr: Vargas Rea DO PROCEDURE: ABDOMEN/PELVIS [...] volume ascites. 4. Severe cardiomegaly. Reading Location: [id number]-[id number] CC: Dr. Vargas Rea, DO; No Primary Care Physician Associate Chemist: Signed Normal [facility] Absolute lymphocyte countOrd ered By: Vargas Rea on 01-29-2025 Lymphocytes Auto (Unsp spec) [#/Vol] 2.12 10*3/uL 0.83-4.51 [facility] Absolute neutrophil countOrd ered By: Vargas Rea on 01-29-2025 Neutrophils (Bld) [#/Vol] 4.7 10*3/uL 2.0-7.7 [facility] Activated partial thrombopla stin time (aPTT) in platelet poor plasma by coagulation aOrdered By: Vargas Rea on 01-29-2025 aPTT Coag (PPP) [Time] 32.5 s 24.1-36.2 [facility] Anion gap in Serum or Plasma Ordered By: Vargas Rea on 01-29-2025 Anion gap [Moles/Vol] 16 mmol/L High 5-15 [facility] Automated lymphocyte count a s percentage of total leukocytesOrdered By: Vargas Rea on 01-29-2025 Lymphocytes/100 WBC Auto (Unsp spec) 28.4 % 19-41 [facility] BUN/creatinine ratioOrdered By: Vargas Rea on 01-29-2025 Urea nitrogen/Creatinine [Mass ratio] 14.7 mg/mg - [facility] Basic Metabolic Profile (BMP )on 01-29-2025 BUN/CRE 14.7 RATIO Normal - [facility] Comment on above: Performed By: #### L 500.4050 #### [facility] [address] [place], [address] Calcium [Mass/Vol] 9.1 mg/dL Normal 7.6-11.0 [facility] Comment on above: Performed By: #### L 500.4050 #### [facility] [address] [place], [address] Chloride [Moles/Vol] 104 mmol/L Normal 98-108 [facility] Comment on above: Performed By: #### L 500.4050 #### [facility] [address] [place], [address] CO2 [Moles/Vol] 21.1 mmol/L Normal 21.0-32.0 [facility] Comment on above: Performed By: #### L 500.4050 #### [facility] [address] [place], [address] Creatinine [Mass/Vol] 2.47 mg/dL High 0.70-1.20 [facility] Comment on above: Result Comment: Icte lizet present, Results may be affected. Performed By: #### L 500.4050 #### [facility] [address] [place], [address] ECRCL 41.81 ml/min Low 50-250 [facility] Comment on above: Performed By: #### L 500.4050 #### [facility] [address] [place], [address] GAP 16 High 5-15 [facility] Comment on above: Performed By: #### L 500.4050 #### [facility] [address] [place], [address] GFR/1.73 sq M.predicted among non-blacks MDRD (S/P/Bld) [Vol rate/Area] 32 mL/min/{1.73_m2} Low >60 [facility] Comment on above: Result Comment: mL/m in/1.73m2 CKD-EPI Creatinine Equation (2020) Performed By: #### L 500.4050 #### [facility] [address] [place], [address] Glucose [Mass/Vol] 130 mg/dL High 70-99 [facility] Comment on above: Performed By: #### L 500.4050 #### [facility] [address] [place], [address] Potassium [Moles/Vol] 4.4 mmol/L Normal 3.3-5.1 [facility] Comment on above: Performed By: #### L 500.4050 #### [facility] [address] [place], [address] Sodium [Moles/Vol] 141 mmol/L Normal 133-145 [facility] Comment on above: Performed By: #### L 500.4050 #### [facility] [address] [place], [address] Urea nitrogen [Mass/Vol] 36 mg/dL High 4-19 [facility] Comment on above: Performed By: #### L 500.4050 #### [facility] [address] [place], [address] Basophil percentageOrdered B y: Vargas Rea on 01-29-2025 Basophils/100 WBC (Bld) 0.7 % 0-1 [facility] Bilirubin directOrdered By: Vargas Rea on 01-29-2025 Bilirubin.direct [Mass/Vol] 3.02 mg/dL High 0.00-0.30 [facility] Bilirubin, totalOrdered By: Vargas Rea on 01-29-2025 Bilirubin [Mass/Vol] 4.74 mg/dL High 0.00-1.30 [facility] CBC W/Diff, Automatedon Absolute Lymph 2.12 X10 3/uL Normal 0.83-4.51 [facility] Comment on above: Performed By: #### L 500.4050 #### [facility] [address] [place], [address] Absolute Neut 4.7 X10 3/uL Normal 2.0-7.7 [facility] Comment on above: Performed By: #### L 500.4050 #### [facility] [address] [place], [address] Basophils/100 WBC (Bld) 0.7 % Normal 0-1 [facility] Comment on above: Performed By: #### L 500.4050 #### [facility] [address] [place], [address] Eosinophils/100 WBC (Bld) 0.3 % Normal 0-5 [facility] Comment on above: Performed By: #### L 500.4050 #### [facility] [address] [place], [address] Erythrocyte distribution width (RBC) [Ratio] 16.3 % High 11.6-14.6 [facility] Comment on above: Performed By: #### L 500.4050 #### [facility] [address] [place], [address] Hematocrit (Bld) [Volume fraction] 42.0 % Normal 40-54 [facility] Comment on above: Performed By: #### L 500.4050 #### [facility] [address] [place], [address] Hemoglobin (Bld) [Mass/Vol] 13.4 g/dL Normal 13.0-16.5 [facility] Comment on above: Performed By: #### L 500.4050 #### [facility] [address] [place], [address] IG% 0.300 Normal 0.0-0.9 [facility] Comment on above: Result Comment: IG% - Immature Granulocytes (promyelocytes, myelocytes and metamyelocytes) > 1% indicates that a LEFT SHIFT is Present. Performed By: #### L 500.4050 #### [facility] [address] [place], [address] Lymphocytes/100 WBC (Bld) 28.4 % Normal 19-41 [facility] Comment on above: Performed By: #### L 500.4050 #### [facility] [address] [place], [address] MCH (RBC) [Entitic mass] 32.8 pg High 27.0-32.0 [facility] Comment on above: Performed By: #### L 500.4050 #### [facility] [address] [place], [address] MCHC (RBC) [Mass/Vol] 31.9 g/dL Low 32-36 [facility] Comment on above: Performed By: #### L 500.4050 #### [facility] [address] [place], [address] MCV (RBC) [Entitic vol] 102.9 fL High 80-94 [facility] Comment on above: Performed By: #### L 500.4050 #### [facility] [address] [place], [address] Monocytes/100 WBC (Bld) 8.2 % Normal 0-10 [facility] Comment on above: Performed By: #### L 500.4050 #### [facility] [address] [place], [address] Neutrophils/100 WBC (Bld) 62.1 % Normal 47-70 [facility] Comment on above: Performed By: #### L 500.4050 #### [facility] [address] [place], [address] Nucleated RBC (Bld) [#/Vol] 0.7 10*3/uL Normal 0-5 [facility] Comment on above: Performed By: #### L 500.4050 #### [facility] [address] [place], [address] Platelet mean volume (Bld) [Entitic vol] 10.2 fL Normal 6.2-12.0 [facility] Comment on above: Performed By: #### L 500.4050 #### [facility] [address] [place], [address] Platelets (Bld) [#/Vol] 368 10*3/uL Normal 150-450 [facility] Comment on above: Performed By: #### L 500.4050 #### [facility] [address] [place], [address] RBC (Bld) [#/Vol] 4.08 10*6/uL Low 4.6-6.2 [facility] Comment on above: Performed By: #### L 500.4050 #### [facility] [address] [place], [address] RDW SD 61.2 fl High 35.1-43.9 [facility] Comment on above: Performed By: #### L 500.4050 #### [facility] [address] [place], [address] WBC (Bld) [#/Vol] 7.5 10*3/uL Normal 4.4-11.0 [facility] Comment on above: Performed By: #### L 500.4050 #### [facility] [address] [place], [address] Carbon dioxide, total [Moles /volume] in Central venous bloodOrdered By: Vargas Rea on 01-29-2025 CO2 [Moles/Vol] 21.1 mmol/L 21.0-32.0 [facility] Chest PA and Lateralon 01-29 Chest PA and Lateral [facility] Imaging Services [address] [place] [address] Chest PA and Lateral MR#: [id number] Acct: [id number] Name: CARLO MEDINA Rep #: [id number] : 1980 M 44 From: Otoniel Rivers MD PCP: Care Physician,No Primary Status: REG ER Study: Chest PA and Lateral Date of Exam: 01/29/25 Exam# [id number] Ordering Dr: Vargas Rea DO PROCEDURE: CHEST [...] acute pulmonary process, stable cardiomegaly Reading Location: [facility] CC: Dr. Vargas Rea DO; No Primary Care Physician Associate Chemist: Signed Normal [facility] Chloride assayOrdered By: Sam Rea on 01-29-2025 Chloride [Moles/Vol] 104 mmol/L 98-108 [facility] Emergency Department Summary on 01-29-2025 Emergency Department Summary [facility] Medical Records Department [address] [place] [address] Emergency Department Summary 01/29/25 MR#: [id number] Acct: [id number] Name: CARLO MEDINA Rep #: [id number] : 1980 44 From: Vargas Rea DO [...] notes that this is a chronic issue. [facility] Medical History Abdominal ascites CKD stage [...] Patient follow commands that he was at [facility] years 2024 Skin: Warm, dry, tact no [...] Once wor (more content not included)... Normal [facility] Eosinophil percentageOrdered By: Vargas Rea on 01-29-2025 Eosinophils/100 WBC (Bld) 0.3 % 0-5 [facility] Erythrocyte distribution wid th ratioOrdered By: Vargas Rea on 01-29-2025 Erythrocyte distribution width (RBC) [Ratio] 16.3 % High 11.6-14.6 [facility] Erythrocyte distribution wid th standard deviationOrdered By: Vargas Rea on 01-29-2025 Erythrocyte distribution width (RBC) [Ratio] 61.2 fl High 35.1-43.9 [facility] Glomerular filtration rate ( GFR) estimation/1.73 sq m using serum, plasma, or whole bOrdered By: Vargas Rea on 01-29-2025 GFR/1.73 sq M.predicted among non-blacks MDRD (S/P/Bld) [Vol rate/Area] 32 mL/min/{1.73_m2} Low >60 [facility] Comment on above: mL/min/1.73m2 CKD-EP I Creatinine Equation (2020) HISTORY PHYSICALon HISTORY PHYSICAL HNO ID: [id number] Author: NIC ROSADO MD Service: Hospital Medicine Author Type: Physician Type: H&P Filed: 01/30/2025 05:37 Note Text: DEPARTMENT OF HOSPITAL MEDICINE HISTORY AND PHYSICAL EXAM SERVICE DATE: 01/29/2025 SERVICE TIME: 11:35 PM Primary Care Physician: No primary care provider on file. NIGHT AND WEEKEND COVERAGE: From 7am - 7pm, please call Sound After 7pm, please call cross cover pager #[phone] Subjective CHIEF COMPLAINT: abdominal distension, ble edema, sob HPI: This is a 44 year old male w/ hx HFrEF EF 15% on imdur and bumex, CKD st 3, LBBB, DVT, transferred fr [place] where he presented for worsening abdominal pain [...] Antibody, SS-B Antibody, Centromere Antibody, Hogan Antibody, Hogan/LAY OUT INSPECTOR Antibody, LAY OUT INSPECTOR Antibody, Scleroderma-70 Antibody, JUAN JOSE-1 Antibody, Ribosomal [...] January 29, 2025 TIME: 11:35 PM etx [id number] Normal [facility] Hematocrit Auto (Bld) [Volum e fraction]Ordered By: Vargas Rea on 01-29-2025 Hematocrit (Bld) [Volume fraction] 42.0 % 40-54 [facility] Hemoglobin measurementOrdere d By: Vargas Rea on 01-29-2025 Hemoglobin (Bld) [Mass/Vol] 13.4 g/dL 13.0-16.5 [facility] Immature granulocytes/100 WB C Auto (Bld)Ordered By: Vargas Rea on 01-29-2025 Immature granulocytes/100 WBC (Bld) 0.300 % 0.0-0.9 [facility] Comment on above: IG% - Immature Granu locytes (promyelocytes, myelocytes and metamyelocytes) > 1% indicates that a LEFT SHIFT is Present. International normalized rat io (INR) calculationOrdered By: Vargas Rea on 01-29-2025 INR Coag (Bld) [Relative time] 1.5 {INR} [facility] L501.4021on 01-29-2025 Trop T High Sen 53 ng/L High <=22 [facility] Comment on above: Result Comment: Crit ical Result(s) Called at: by:??Results read back by same. Critical Result(s) Called to: Driss EVANS (ER) by: Vianey??Results read back by same. Performed By: #### L 500.4050 #### [facility] [address] [place], [address] Laboratory - Chemistry and C hemistry - challengeOrdered By: Vargas Rea on 01-29-2025 AST [Catalytic activity/Vol] 20 U/L <38 [facility] Liver Profileon 01-29-2025 Albumin [Mass/Vol] 3.5 g/dL Normal 3.5-5.0 [facility] Comment on above: Performed By: #### L 500.4050 #### [facility] [address] [place], [address] ALK PHOS 462 U/L High 40-129 [facility] Comment on above: Performed By: #### L 500.4050 #### [facility] [address] [place], [address] ALT [Catalytic activity/Vol] 10 U/L Normal <=46 [facility] Comment on above: Performed By: #### L 500.4050 #### [facility] [address] [place], [address] AST [Catalytic activity/Vol] 20 U/L Normal <=37 [facility] Comment on above: Performed By: #### L 500.4050 #### [facility] [address] [place], [address] Bilirubin [Mass/Vol] 4.74 mg/dL High 0.00-1.30 [facility] Comment on above: Performed By: #### L 500.4050 #### [facility] [address] [place], [address] Bilirubin.direct [Mass/Vol] 3.02 mg/dL High 0.00-0.30 [facility] Comment on above: Performed By: #### L 500.4050 #### [facility] [address] [place], [address] Globulin (S) [Mass/Vol] 3.2 g/dL Normal 2.2-4.2 [facility] Comment on above: Performed By: #### L 500.4050 #### [facility] [address] [place], [address] T PROT 6.7 g/dL Normal 5.9-8.4 [facility] Comment on above: Performed By: #### L 500.4050 #### [facility] [address] [place], [address] MCV (mean corpuscular volume ) determinationOrdered By: Vargas Rea on 01-29-2025 MCV (RBC) [Entitic vol] 102.9 fL High 80-94 [facility] Mean corpuscular hemoglobin (MCH) determinationOrdered By: Vargas Rea on 01-29-2025 MCH (RBC) [Entitic mass] 32.8 pg High 27.0-32.0 [facility] Mean corpuscular hemoglobin concentration (MCHC) determinationOrdered By: Vargas Rea on 01-29-2025 MCHC (RBC) [Mass/Vol] 31.9 g/dL Low 32-36 [facility] Mean platelet volume determi nationOrdered By: Vargas Rea on 01-29-2025 Platelet mean volume (Bld) [Entitic vol] 10.2 fL 6.2-12.0 [facility] Monocyte percentageOrdered B y: Vargas Rea on 01-29-2025 Monocytes/100 WBC (Bld) 8.2 % 0-10 [facility] Natriuretic peptide.B prohor justin N-Terminal [Mass/volume] in Serum or PlasmaOrdered By: Vargas Rea on 01-29-2025 Natriuretic peptide.B prohormone N-Terminal [Mass/Vol] 49953 pg/mL High <450 [facility] Comment on above: Heart Failure Unlike ly: < 300 pg/mLHeart Failure Likely< 50 Years: > 450 pg/mL50-75 Years: > 900 pg/mL>75 Years: > 1800 pg/mL Neutrophil percentageOrdered By: Vargas Rea on 01-29-2025 Neutrophils/100 WBC (Bld) 62.1 % 47-70 [facility] Nucleated red blood cell per centageOrdered By: Vargas Rea on 01-29-2025 Nucleated RBC/100 WBC (Bld) [Ratio] 0.7 % 0-5 [facility] Partial Thromboplast Timeon 01-29-2025 aPTT Coag (Bld) [Time] 32.5 s Normal 24.1-36.2 [facility] Comment on above: Order Comment: REDRA W. PREVIOUS SPECIMEN REJECTED DUE TO QNS. 01/29/25 0840 [place]. Performed By: #### L 300.4310, L300.3900 #### [facility] [address] [place], [place], [address] Platelet countOrdered By: Sam Rea on 01-29-2025 Platelets (Bld) [#/Vol] 368 10*3/uL 150-450 [facility] Potassium measurement (mass/ volume)Ordered By: Vargas Rea on 01-29-2025 Potassium (Unsp spec) [Mass/Vol] 4.4 mmol/L 3.3-5.1 [facility] Pro- Brain NATRIURETIC PEPTI Saroj 01-29-2025 Natriuretic peptide B (Bld) [Mass/Vol] 06706 pg/mL High <=450 [facility] Comment on above: Result Comment: Hear t Failure Unlikely: < 300 pg/mL Heart Failure Likely < 50 Years: > 450 pg/mL 50-75 Years: > 900 pg/mL >75 Years: > 1800 pg/mL Performed By: #### L 500.4050, L100.0100 #### [facility] [address] [place], [place], [address] Prothrombin Time w/INRon INR Coag (PPP) [Relative time] 1.5 {INR} Normal [facility] Comment on above: Order Comment: REDRA W. PREVIOUS SPECIMEN REJECTED DUE TO QNS. 01/29/25 0840 [place]. Performed By: #### L 300.4310, L300.3900 #### [facility] [address] [place], [address] PT Coag (PPP) [Time] 18.8 s High 11.7-14.9 [facility] Comment on above: Order Comment: CHRISTOFER Clancy. PREVIOUS SPECIMEN REJECTED DUE TO QNS. 01/29/25 0840 [place]. Performed By: #### L 300.4310, L300.3900 #### [facility] [address] [place], [address] INR Normal [facility] Comment on above: Result Comment: This specimen has been REJECTED due to Laboratory criteria: Quanity Not Sufficient. GABY has been notified of need of recollection. 01/29/25 0839 [place] Performed By: #### L 300.3900 #### [facility] [address] [place], [address] PROTIME Normal 11.7-14.9 [facility] Comment on above: Result Comment: This specimen has been REJECTED due to Laboratory criteria: Quanity Not Sufficient. GABY has been notified of need of recollection. 01/29/25 0839 [place] Performed By: #### L 300.3900 #### [facility] [address] [place], [address] Prothrombin timeOrdered By: Vargas Rea on 01-29-2025 PT Coag (PPP) [Time] 18.8 s High 11.7-14.9 [facility] RBC Auto (Bld) [#/Vol]Ordere d By: Vargas Rea on 01-29-2025 RBC (Bld) [#/Vol] 4.08 10*6/uL Low 4.6-6.2 [facility] Serum creatinine measurement (mass/volume)Ordered By: Vargas Rea on 01-29-2025 Creatinine [Mass/Vol] 2.47 mg/dL High 0.70-1.20 [facility] Comment on above: Icterus present, Res ults may be affected. Serum globulin measurementOr dered By: Vargas Rea on 01-29-2025 Globulin (S) [Mass/Vol] 3.2 g/dL 2.2-4.2 [facility] Serum glucose measurement (m ass/volume)Ordered By: Vargas Rea on 01-29-2025 Glucose [Mass/Vol] 130 mg/dL High 70-99 [facility] Serum or plasma alanine de paz otransferase (ALT) measurementOrdered By: Vargas Rea on 01-29-2025 ALT [Catalytic activity/Vol] 10 U/L <47 [facility] Serum or plasma albumin fidel urement (mass/volume)Ordered By: Vargas Rea on 01-29-2025 Albumin [Mass/Vol] 3.5 g/dL 3.5-5.0 [facility] Serum or plasma alkaline nick sphatase measurementOrdered By: Vargas Rea on 01-29-2025 ALP [Catalytic activity/Vol] 462 U/L High 40-129 [facility] Serum or plasma calcium fidel urement (mass/volume)Ordered By: Vargas Rea on 01-29-2025 Calcium [Mass/Vol] 9.1 mg/dL 7.6-11.0 [facility] Serum or plasma urea nitroge n measurement (mass/volume)Ordered By: Vargas Rea on 01-29-2025 Urea nitrogen [Mass/Vol] 36 mg/dL High 4-19 [facility] Sodium levelOrdered By: Tammi Rea on 01-29-2025 Sodium [Moles/Vol] 141 mmol/L 133-145 [facility] Total proteinOrdered By: Lucía Rea on 01-29-2025 Protein [Mass/Vol] 6.7 g/dL 5.9-8.4 [facility] Troponin T HS 2 HRon 025 Trop T High Sen 55 ng/L Invalid Interpretation Code <=22 [facility] Comment on above: Result Comment: Crit ical Result(s) Called to: Nathan EVANS (ER) by: Vianey??Results read back by same. Performed By: #### L 499.0042 #### [facility] [address] [place], [place], [address] Troponin T HS 4 HRon 025 Trop T High Sen 49 ng/L High <=22 [facility] Comment on above: Performed By: #### L 499.0043 #### [facility] [address] [place], [address] Troponin T.cardiac [Mass/vol ume] in Serum or Plasma by High sensitivity methodOrdered By: Vargas Rea on 01-29-2025 Troponin T.cardiac High sensitivity method [Mass/Vol] 49 ng/L High <22 [facility] Troponin T.cardiac High sensitivity method [Mass/Vol] 55 ng/L High <22 [facility] Comment on above: Critical Result(s) C alled to: Nathan EVANS (ER) by: Vianey Results read back by same. Troponin T.cardiac High sensitivity method [Mass/Vol] 53 ng/L High <22 [facility] Comment on above: Delta: 45 on [phone] Result(s) Called at: by: Results read back by same.Critical Result(s) Called to: Driss EVANS (ER) by: Vianey Results read back by cassandra. White blood cell (WBC) count Ordered By: Vargas Rea on 01-29-2025 WBC (Bld) [#/Vol] 7.5 10*3/uL 4.4-11.0 [facility] CNDSon 01-21-2025 DS HNO ID: [id number] Author: MELISSA ORDAZ APRN.CNP Service: Cardiovascular Medicine Author Type: Nurse Practitioner Type: Discharge Summary Filed: 01/21/2025 12:42 Note Text: Attestation signed by Maged Correa MD at 01/21/2025 3:48 PM [facility] STAFF PHYSICIAN NOTE OF PERSONAL INVOLVEMENT IN CARE IMPRESSION: Patient is a 44 year-old man with a history of NICM c/b HFrEF (15%), LBBB, hypertension, hyperlipidemia, CKD, and cirrhosis who presents with decompensated heart failure. Patient Active Hospital Problem List: Acute on chronic HFrEF (heart failure with reduced ejection fraction) ([facility]) Date Noted: 10/21/2024 History of left bundle branch block (LBBB) Date Noted: 06/19/2024 Essential hypertension Date Noted: 06/08/2024 CKD (chronic kidney disease) Date Noted: 06/08/2024 Personal history of DVT (deep vein thrombosis) Date Noted: 01/20/2025 NICM (nonischemic cardiomyopathy) ([facility]) Date Noted: 01/21/2025 Scleral icterus Date Noted: [...] file Primary Service: A, Hvi Clinical Senior Network Architect/Pa Admission Diagnosis: Acute decompensated heart failure (HCC) [...] thrombosis) Date Noted: 01/20/2025 NICM (nonischemic cardiomyopathy) ([facility]) Date Noted: 01/21/2025 Scleral icterus Date Noted: [...] Medication List (more content not included)... Normal [facility] ECHOon 01-21-2025 Echocardiography Echocardiography Report: Transthoracic Echo Main [place] Bedside Date of service: 01/21/2025 9:06:51 AM ASSOCIATE Ordering physician: LA YUN Exam indication: Evaluation [...] for comparison. (more content not included)... Normal [facility] NURSING PROGon 01-21-2025 NURSING PROG HNO ID: [id number] Author: TAQUERIA VELEZ RN Service: Nursing Author Type: Registered Nurse Type: Nursing Progress Note Filed: 01/21/2025 11:18 Note Text: Pt declined resuming Losartan. Pt states, I am fine with just taking the meds I take at home. I only came here for the defibrillator, not to take new meds. RN explained to pt EP recommendation is to optimize GDMT prior to considering MUSIC COORDINATOR-D placement. Pt is agreeable to IV diuretics, [...] IV certified nurse come in. Melissa Ordaz, [employer], ASSOCIATE FINANCIAL PLANNER notified. Normal [facility] NURSING PROG HNO ID: [id number] Author: YASMEEN MEJIA RN Service: Nursing Author [...] obtaining labs. Educated provided. Reach out to jeannie Gupta to move 0600 IVP lasix to 0900 in order to check potassium when pt is agreeable Normal [facility] PT EDon 01-21-2025 PT ED HNO ID: [id number] Author: GABY GUIDRY [facility] Service: Pharmacy Author Type: Pharmacist [...] RECOMMENDATIONS (IF ANY): None SIGNATURE: Gaby Guidry [facility] PAGER: [phone] Normal [facility] Progress Noteson 01-21-2025 Emission Specialist Authentication Interface Message Text Normal [facility] [employer] [facility] CBC panel Auto (Bld)on 01-20 Erythrocyte distribution width (RBC) [Ratio] 15.8 % High 11.5-15.0 [facility] Comment on above: Order Comment: Speci men Type: BLOOD SPECIMENOrdering Facility: [facility] Address: [address] [place] [address] Performed By: #### 5 8410-2 ####[facility] [id number] [place] [address] [place] Hematocrit (Bld) [Volume fraction] 39.5 % Normal 39.0-51.0 [facility] Comment on above: Order Comment: Speci men Type: BLOOD SPECIMENOrdering Facility: [facility] Address: [address] [place] [address] Performed By: #### 5 8410-2 ####[facility] [id number] [place] [address] [place] Hemoglobin (Bld) [Mass/Vol] 12.9 g/dL Low 13.0-17.0 [facility] Comment on above: Order Comment: Speci men Type: BLOOD SPECIMENOrdering Facility: [facility] Address: [address] [place] [address] Performed By: #### 5 8410-2 ####[facility] [id number] [place] [address] [place] MCH (RBC) [Entitic mass] 33.4 pg Normal 26.0-34.0 [facility] Comment on above: Order Comment: Speci men Type: BLOOD SPECIMENOrdering Facility: [facility] Address: [address] [place], [place] [address] Performed By: #### 5 8410-2 ####[facility]IA [id number] [place] [address] [place] MCHC (RBC) [Mass/Vol] 32.7 g/dL Normal 30.5-36.0 [facility] Comment on above: Order Comment: Speci men Type: BLOOD SPECIMENOrdering Facility: [facility] Address: [address] [place] [address] Performed By: #### 5 8410-2 ####[facility] [id number] [place] [address] [place] MCV (RBC) [Entitic vol] 102.3 fL High 80.0-100.0 [facility] Comment on above: Order Comment: Speci men Type: BLOOD SPECIMENOrdering Facility: [facility] Address: [address] [place] [address] Performed By: #### 5 8410-2 ####[facility] [id number] [place] [address] [place] Nucleated RBC (Bld) [#/Vol] 0.02 10*3/uL High <0.01 [facility] Comment on above: Order Comment: Speci men Type: BLOOD SPECIMENOrdering Facility: [facility] Address: [address] [place] [address] Performed By: #### 5 8410-2 ####[facility] [id number] [id number] [address] [place] Platelet mean volume (Bld) [Entitic vol] 10.4 fL Normal 9.0-12.7 [facility] Comment on above: Order Comment: Speci men Type: BLOOD SPECIMENOrdering Facility: [facility] Address: [address] [place] [address] Performed By: #### 5 8410-2 ####[facility] [id number] [place] [address] [place] Platelets (Bld) [#/Vol] 287 10*3/uL Normal 150-400 [facility] Comment on above: Order Comment: Speci men Type: BLOOD SPECIMENOrdering Facility: [facility] Address: [address] [place] [address] Performed By: #### 5 8410-2 ####[facility] [id number] [place] [address] [place] RBC (Bld) [#/Vol] 3.86 10*6/uL Low 4.20-6.00 [facility] Comment on above: Order Comment: Speci men Type: BLOOD SPECIMENOrdering Facility: [facility] Address: [address] [place] [address] Performed By: #### 5 8410-2 ####[facility] [id number] [place] [address] [place] WBC (Bld) [#/Vol] 6.85 10*3/uL Normal 3.70-11.00 [facility] Comment on above: Order Comment: Speci men Type: BLOOD SPECIMENOrdering Facility: [facility] Address: [address] [place] [address] Performed By: #### 5 8410-2 ####[facility] [id number] [place] [id number] [place] CONSULTon 01-20-2025 CONSULT HNO ID: [id number] Author: ROOPA TAVERA DO Service: Cardiovascular Medicine Author Type: Fellow Type: Consults Filed: 01/20/2025 18:24 Note Text: Attestation signed by Roopa Tavera DO at 01/20/2025 6:24 PM [facility] STAFF PHYSICIAN NOTE OF PERSONAL INVOLVEMENT [...] follow up and relates challenges coming to [place] for visits. We discussed if his HF medications are maximized and his LVEF remains reduced (below 35%) when reassessed after three months then we would could proceed with an ICD. I explained the purpose of an ICD and explained the implant procedure, risks,benefits and limitations, terminal makeup operator implications and follow up and addressed his questions. His recent ECG shows a NIVC with QRSd <150msec and would not be likely to benefit from a MUSIC COORDINATOR device, this would certainly need reassessed prior [...] [facility] CARDIOVASCULAR MEDICINE CONSULT NOTE (Template ID [id number]) Carlo Medina [id number] PRIMARY SERVICE: Cardiovascular Medicine - AUTOMAT WATCHER/PA CONSULTING SERVICE: Cardiovascular Medicine: EP DATE OF ADMISSION: 01/19/2025 DATE OF CONSULT: 01/20/2025 REASON FOR CONSULT Consideration for MUSIC COORDINATOR-D implantation HISTORY OF PRESENT ILLNESS Carlo Medina [...] filling pressures - Has seen a general solvent plant treater at [facility], last visit 05/2024 and a HF Denture Processor (Dr. Astudillo - 07/2024) with some concern [...] 97 Temp (more content not included)... Normal [facility] Comprehensive metabolic 2000 panelon 01-20-2025 Albumin [Mass/Vol] 3.4 g/dL Low 3.9-4.9 [facility] Comment on above: Order Comment: Speci men Type: BLOOD SPECIMENOrdering Facility: [facility] Address: [address] [place] [address] Performed By: #### 2 4323-8, 9, 6-3, 57295-5, 6-4, 10664-4 ####[facility] LABCLIA [id number] [address] [address] [place] ALP [Catalytic activity/Vol] 459 U/L High 38-113 [facility] Comment on above: Order Comment: Speci men Type: BLOOD SPECIMENOrdering Facility: [facility] Address: [address] [place] [address] Performed By: #### 2 4323-8, 9, 3016-3, 93006-4, 2276-4, 05955-1 ####[facility] LABCLIA [id number] [address] [address] [place] ALT [Catalytic activity/Vol] 23 U/L Normal 10-54 [facility] Comment on above: Order Comment: Speci men Type: BLOOD SPECIMENOrdering Facility: [facility] Address: [address] [place] [address] Performed By: #### 2 4323-8, 2-9, 6-3, 19582-6, 6-4, 59869-8 ####[facility] [id number] [place] [address] [place] Anion gap [Moles/Vol] 18 mmol/L High 8-15 [facility] Comment on above: Order Comment: Speci men Type: BLOOD SPECIMENOrdering Facility: [facility] Address: [address] [place] [address] Performed By: #### 2 4323-8, 2-9, 6-3, 56254-1, 6-4, 68921-4 ####[facility] [id number] [place] [address] [place] AST [Catalytic activity/Vol] 21 U/L Normal 14-40 [facility] Comment on above: Order Comment: Speci men Type: BLOOD SPECIMENOrdering Facility: [facility] Address: [address] [place] [address] Performed By: #### 2 4323-8, 2-9, 6-3, 86535-9, 6-4, 69119-1 ####[facility] [id number] [place] [address] [place] Bilirubin [Mass/Vol] 5.1 mg/dL High 0.2-1.3 [facility] Comment on above: Order Comment: Speci men Type: BLOOD SPECIMENOrdering Facility: [facility] Address: [address] [place] [address] Performed By: #### 2 4323-8, 2131-9, 3015-3, 80443-3, 4, 24273-0 ####[facility] LABCLIA [id number] [place] [employer] [facility] [facility] [id number] [address] [place] Calcium [Mass/Vol] 9.4 mg/dL Normal 8.5-10.2 [facility] Comment on above: Order Comment: Speci men Type: BLOOD SPECIMENOrdering Facility: [facility] Address: [address] [place] [address] Performed By: #### 2 4323-8, 9, 3, 14747-7, 4, 68830-3 ####[facility] LABCLIA [id number] [place] [employer] [facility] [address] [id number], [place] [address] [place] Chloride [Moles/Vol] 101 mmol/L Normal 98-107 [facility] Comment on above: Order Comment: Speci men Type: BLOOD SPECIMENOrdering Facility: [facility] Address: [address] [place] [address] Performed By: #### 2 4323-8, 9, 3, 77843-1, 4, 33970-4 ####[facility] LABCLIA [id number] [place] [employer] [facility] [address] [place] [address] [place] CO2 [Moles/Vol] 22 mmol/L Normal 22-30 [facility] Comment on above: Order Comment: Speci men Type: BLOOD SPECIMENOrdering Facility: [facility] Address: [address] [place] [address] Performed By: #### 2 4323-8, 2131-9, 3015-3, 74817-5, 2275-4, 25947-6 ####[facility] LABCLIA [id number] [place] [employer] [facility] [address] [id number], [place] [address] [place] Creatinine [Mass/Vol] 2.46 mg/dL High 0.73-1.22 [facility] Comment on above: Order Comment: Sunni reynoso Type: BLOOD SPECIMENOrdering Facility: [facility] Address: [address] [place] [id number] Performed By: #### 2 4323-8, 2132-9, 3016-3, 28480-2, 6-4, 84375-7 ####[facility] [id number] [place] [address] [place] eGFRcr SerPlBld CKD-EPI 2020 32 mL/min/1.73m??? Low >=60 [facility] Comment on above: Order Comment: Sunni reynoso Type: BLOOD SPECIMENOrdering Facility: [facility] Address: [address] [place] [address] Result Comment: Ella mated Glomerular Filtration Rate [...] actual GFR. Performed By: #### 2 4323-8, 2132-9, 3016-3, 96976-7, 6-4, 92890-9 ####[facility] [id number] [place] [address] [place] Glucose [Mass/Vol] 102 mg/dL High 74-99 [facility] Comment on above: Order Comment: Sunni reynoso Type: BLOOD SPECIMENOrdering Facility: [facility] Address: [address] [place] [address] Result Comment: The [place] [employer] (ADA) provides guidance for cutoff [...] Standards of Medical Care in Diabetes 2016, [place] [employer]. Diabetes Care. 2016.39(Suppl 1). Performed By: #### 2 4323-8, 2-9, 3016-3, 56132-2, 6-4, 22549-1 ####[facility] LABCLIA [id number] [address] [address] [place] Potassium [Moles/Vol] 3.8 mmol/L Normal 3.7-5.1 [facility] Comment on above: Order Comment: Speci men Type: BLOOD SPECIMENOrdering Facility: [facility] Address: [address] [place], [place] [address] Performed By: #### 2 4323-8, 9, 6-3, 66269-3, 2275-4, 68104-6 ####[facility] [id number] [address] [address] [place] Protein [Mass/Vol] 6.8 g/dL Normal 6.3-8.0 [facility] Comment on above: Order Comment: Speci men Type: BLOOD SPECIMENOrdering Facility: [facility] Address: [address] [place], [place] [address] Performed By: #### 2 4323-8, 2131-9, 6-3, 47726-7, 2275-4, 28909-8 ####[facility] [id number] [address] [address] [place] Sodium [Moles/Vol] 141 mmol/L Normal 136-144 [facility] Comment on above: Order Comment: Speci men Type: BLOOD SPECIMENOrdering Facility: [facility] Address: [address] [place] [address] Performed By: #### 2 4323-8, 2132-9, 6-3, 32749-3, 2275-4, 61394-9 ####[facility] LABCLIA [id number] [address] [address] [place] Urea nitrogen [Mass/Vol] 41 mg/dL High 03-23 [facility] Comment on above: Order Comment: Speci men Type: BLOOD SPECIMENOrdering Facility: [facility] Address: [address] [place], [place] [address] Performed By: #### 2 4323-8, 2131-9, 3015-3, 78885-4, 2275-4, 78081-3 ####[facility] LABCLIA [id number] [place] [address] [place] Ferritin SerPl-mCncon 2024 Ferritin [Mass/Vol] 167.0 ng/mL Normal 30.3-565.7 [facility] Comment on above: Order Comment: Speci men Type: BLOOD SPECIMENOrdering Facility: [facility] Address: [address] [place], [place] [address] Performed By: #### 2 4323-8, 2131-9, 3, 72098-7, 4, 81971-5 ####[facility] LABCLIA [id number] [address] [address] [place] Gas and Carbon monoxide pane l (BldV)on 01-20-2025 Base excess Calc (BldV) [Moles/Vol] 0 mmol/L Normal 0-2 [facility] Comment on above: Order Comment: Speci men Type: BLOOD SPECIMEN [facility] Address: [address] [place], [place] [address] Performed By: #### L [id number] #### [facility] CLIA [id number] [address] [place], [place] [address] [place] Body temperature 98.06 [degF] Normal [facility] Comment on above: Order Comment: Speci men Type: BLOOD SPECIMEN [facility] Address: [address] [place] [address] Performed By: #### L [id number] #### [facility] CLIA [id number] [address] [place] [address] [place] Calcium.ionized (Bld) [Mass/Vol] 1.13 mmol/L Normal 1.08-1.30 [facility] Comment on above: Order Comment: Speci men Type: BLOOD SPECIMEN [facility] Address: [address] [place] [address] Performed By: #### L [id number] #### [facility] CLIA [id number] [address] [place] [address] [place] Calcium.ionized adjusted to pH 7.4 (BldA) [Moles/Vol] 1.13 mmol/L Normal 1.08-1.30 [facility] Comment on above: Order Comment: Speci men Type: BLOOD SPECIMEN [facility] Address: [address] [place] [address] Performed By: #### L [id number] #### [facility] CLIA [id number] [address] [place] [address] [place] Carboxyhemoglobin (BldV) [Mass fraction] 0.4 % Normal 0.0-2.0 [facility] Comment on above: Order Comment: Speci men Type: BLOOD SPECIMEN [facility] Address: [address] [place] [address] Result Comment: Carb oxyhemoglobin Reference Range for Smokers: 2.0-8.0% Performed By: #### L [id number] #### [facility] CLIA [id number] [address] [place] [address] [place] CO2 (BldV) [Partial pressure] 39 mm[Hg] Low 42-55 [facility] Comment on above: Order Comment: Speci men Type: BLOOD SPECIMEN [facility] Address: [address] [place] [address] Performed By: #### L [id number] #### [facility] CLIA [id number] [address] [place] [address] [place] CO2 adjusted to patient's actual temperature (BldV) [Partial pressure] 38 mmHg Low 42-55 [facility] Comment on above: Order Comment: Speci men Type: BLOOD SPECIMEN [facility] Address: [address] [place] [address] Performed By: #### L [id number] #### [facility] CLIA [id number] [address] [place] [address] [place] Glucose [Mass/Vol] 110 mg/dL High 60-105 [facility] Comment on above: Order Comment: Speci men Type: BLOOD SPECIMEN [facility] Address: [address] [place] [address] Performed By: #### L [id number] #### [facility] CLIA [id number] [address] [place] [address] [place] HCO3 (Bld) [Moles/Vol] 24 mmol/L Normal 24-28 [facility] Comment on above: Order Comment: Speci men Type: BLOOD SPECIMEN [facility] Address: [address] [place] [address] Performed By: #### L [id number] #### [facility] CLIA [id number] [address] [place] [address] [place] Hematocrit (Bld) [Volume fraction] 41.6 % Normal 39.0-51.0 [facility] Comment on above: Order Comment: Speci men Type: BLOOD SPECIMEN [facility] Address: [address] [place] [address] Performed By: #### L [id number] #### [facility] CLIA [id number] [address] [place] [address] [place] Hemoglobin (Bld) [Mass/Vol] 13.5 g/dL Normal 13.0-17.0 [facility] Comment on above: Order Comment: Speci men Type: BLOOD SPECIMEN [facility] Address: [address] [place] [address] Performed By: #### L [id number] #### [facility] CLIA [id number] [address] [place] [address] [place] Lactate [Moles/Vol] 3.3 mmol/L High 0.5-2.2 [facility] Comment on above: Order Comment: Speci men Type: BLOOD SPECIMEN [facility] Address: [address] [place] [address] Performed By: #### L [id number] #### [facility] CLIA [id number] [address] [place] [address] [place] Methemoglobin (Bld) [Mass fraction] 0.9 % Normal 0.0-1.5 [facility] Comment on above: Order Comment: Speci men Type: BLOOD SPECIMEN [facility] Address: [address] [place] [address] Performed By: #### L [id number] #### [facility] CLIA [id number] [address] [place] [address] [place] O2 THERAPY RA=Room Air Normal [facility] Comment on above: Order Comment: Speci men Type: BLOOD SPECIMEN [facility] Address: [address] [place] [address] Performed By: #### L [id number] #### [facility] CLIA [id number] [address] [place] [address] [place] Oxygen (BldV) [Partial pressure] 20 mm[Hg] Low 35-45 [facility] Comment on above: Order Comment: Speci men Type: BLOOD SPECIMEN [facility] Address: [address] [place] [address] Performed By: #### L [id number] #### [facility] CLIA [id number] [address] [place], [place] [address] [place] Oxygen adjusted to patient's actual temperature (BldV) [Partial pressure] 20 mmHg Low 35-45 [facility] Comment on above: Order Comment: Speci men Type: BLOOD SPECIMEN [facility] Address: [address] [place], [place] [address] Performed By: #### L [id number] #### [facility] CLIA [id number] [address] [place], [place] [address] [place] Oxygen saturation in Venous blood 16 % Low 60-85 [facility] Comment on above: Order Comment: Speci men Type: BLOOD SPECIMEN [facility] Address: [address] [place], [place] [address] Performed By: #### L [id number] #### [facility] CLIA [id number] [address] [place], [place] [address] [place] Oxyhemoglobin (BldV) [Mass fraction] 15 % Low 60-85 [facility] Comment on above: Order Comment: Speci men Type: BLOOD SPECIMEN [facility] Address: [address] [place], [place] [address] Performed By: #### L [id number] #### [facility] CLIA [id number] [address] [place], [place] [address] [place] pH (BldV) 7.41 [pH] Normal 7.32-7.42 [facility] Comment on above: Order Comment: Speci men Type: BLOOD SPECIMEN [facility] Address: [address] [place], [place] [address] Performed By: #### L [id number] #### [facility] CLIA [id number] [address] [place], [place] [address] [place] pH adjusted to patient's actual temperature (BldV) 7.42 Normal 7.32-7.42 [facility] Comment on above: Order Comment: Speci men Type: BLOOD SPECIMEN [facility] Address: [address] [place] [address] Performed By: #### L [id number] #### [facility] CLIA [id number] [address] [place] [address] [place] Potassium [Moles/Vol] 3.7 mmol/L Normal 3.5-5.0 [facility] Comment on above: Order Comment: Speci men Type: BLOOD SPECIMEN [facility] Address: [address] [place] [address] Performed By: #### L [id number] #### [facility] CLIA [id number] [address] [place] [address] [place] Sodium [Moles/Vol] 141 mmol/L Normal 136-144 [facility] Comment on above: Order Comment: Speci men Type: BLOOD SPECIMEN [facility] Address: [address] [place] [address] Performed By: #### L [id number] #### [facility] CLIA [id number] [address] [place] [address] [place] Iron and Iron binding capaci ty panelon 01-20-2025 Iron [Mass/Vol] 36 ug/dL Low 41-186 [facility] Comment on above: Order Comment: Speci men Type: BLOOD SPECIMENOrdering Facility: [facility] Address: [address] [place] [address] Performed By: #### 2 4323-8, 2132-9, 3016-3, 79599-1, 2276-4, 83139-3 ####[facility] LABCLIA [id number] [place] [address] [place] Iron binding capacity [Mass/Vol] 311 ug/dL Normal 232-386 [facility] Comment on above: Order Comment: Speci men Type: BLOOD SPECIMENOrdering Facility: [facility] Address: [address] [place], [place] [address] Performed By: #### 2 4323-8, 9, 3, , 2275-09, 54119-7 ####[facility] LABCLIA [id number] [place] [address] [place] Iron/TIBC [Molar ratio] 11.6 % Low 15.0-57.0 [facility] Comment on above: Order Comment: Speci men Type: BLOOD SPECIMENOrdering Facility: [facility] Address: [address] [place] [address] Performed By: #### 2 4323-8, 9, 3015-08, , 2275-09, 75706-4 ####[facility] LABCLIA [id number] [place] [address] [place] Magnesium SerPl-mCncon 01-20 Magnesium [Mass/Vol] 2.2 mg/dL Normal 1.7-2.3 [facility] Comment on above: Order Comment: Speci men Type: BLOOD SPECIMEN [facility] Address: [address] [place] [address] Performed By: #### L [id number] #### [facility] CLIA [id number] [address] [place] [address] [place] Magnesium [Mass/Vol] 2.3 mg/dL Normal 1.7-2.3 [facility] Comment on above: Order Comment: Speci men Type: BLOOD SPECIMENOrdering Facility: [facility] Address: [address] [place] [address] Performed By: #### 2 4323-8, 9, 3, , 2275-09, 49057-7 ####[facility] LABCLIA [id number] [place] [id number] [place] NURSING PROGon 01-20-2025 NURSING PROG HNO ID: [id number] Author: MARIANA POTTER RN Service: ? Author [...] declining a new one right now. Normal [facility] POTASSIUMon 01-20-2025 Potassium [Moles/Vol] 3.3 mmol/L Low 3.7-5.1 [facility] Comment on above: Order Comment: Speci men Type: BLOOD SPECIMEN [facility] Address: [address] [place] [address] Performed By: #### L [id number] #### [facility] CLIA [id number] [address] [place] [address] [place] Potassium [Moles/Vol] 3.5 mmol/L Low 3.7-5.1 [facility] Comment on above: Order Comment: Speci men Type: BLOOD SPECIMEN [facility] Address: [address] [place] [address] Performed By: #### L [id number] #### [facility] CLIA [id number] [address] [place], [place] [address] [place] PT panel Coag (PPP)on 2024 INR Coag (PPP) [Relative time] 1.5 {INR} High 0.9-1.3 [facility] Comment on above: Order Comment: Sunni reynoso Type: BLOOD SPECIMENOrdering Facility: [facility] Address: [address] [place] [address] Result Comment: Gayla min K Antagonist (VKA) Therapeutic Range: INR 2 to 3 (Target INR of 2.5) Note: For patients treated with VKA drugs, such as warfarin, the [place] [employer] 2012 Guideline recommends [...] Chest 2012, 141:7S-47S Evelyn RA, et al. [facility] 2017, 70: 252-289 Performed By: #### 3 4528-0, 20413-3 ####[facility] LABCLIA [id number] [place] [id number] [place] PT Coag (PPP) [Time] 15.7 s High 9.7-13.0 [facility] Comment on above: Order Comment: Speci men Type: BLOOD SPECIMENOrdering Facility: [facility] Address: [address] [place] [address] Performed By: #### 3 4528-0, 86444-2 ####[facility] LABCLIA [id number] [place] [id number] [place] SEPSIS LACTATEon 01-20-2025 Lactate [Moles/Vol] 2.5 mmol/L High <=2.0 [facility] Comment on above: Order Comment: Speci men Type: BLOOD SPECIMEN Ordering Facility: [facility] Address: [address] [place] [address] Performed By: #### L [id number] #### [facility] CLIA [id number] [address] [place] [address] [place] [place] TSH SerPl-aCncon 01-20-2025 TSH Qn 3.480 m[IU]/L Normal 0.270-4.200 [facility] Comment on above: Order Comment: Speci men Type: BLOOD SPECIMENOrdering Facility: [facility] Address: [address] [place] [address] Performed By: #### 2 4323-8, 2-9, 6-3, 35608-4, 2275-4, 96128-4 ####[facility] [id number] [place] [address] [place] Vit B12 SerPl-mCncon 025 Cobalamin (Vitamin B12) [Mass/Vol] 1829 pg/mL High 232-1245 [facility] Comment on above: Order Comment: Speci men Type: BLOOD SPECIMENOrdering Facility: [facility] Address: [address] [place] [address] Performed By: #### 2 4323-8, 2-9, 3016-3, 15315-2, 2275-4, 94181-7 ####[facility]IA [id number] [place] [address] [place] aPTT PPPon 01-20-2025 aPTT Coag (PPP) [Time] 29.7 s Normal 23.0-32.4 [facility] Comment on above: Order Comment: Speci men Type: BLOOD SPECIMENOrdering Facility: [facility] Address: [address] [place] [address] Performed By: #### 3 4528-0, 51566-6 ####[facility]IA [id number] [place] [address] [place] CBC W Auto Differential pane l (Bld)on 01-19-2025 Basophils (Bld) [#/Vol] 0.03 10*3/uL Normal <0.11 [facility] Comment on above: Order Comment: Speci men Type: BLOOD SPECIMEN [facility] Address: [address] [place] [address] Performed By: #### L [id number] #### [facility] CLIA [id number] [address] [place] [address] [place] Basophils/100 WBC (Bld) 0.4 % Normal [facility] Comment on above: Order Comment: Speci men Type: BLOOD SPECIMEN [facility] Address: [address] [place] [address] Performed By: #### L [id number] #### [facility] CLIA [id number] [address] [place] [address] [place] Differential cell count method Nom (Bld) Auto Normal [facility] Comment on above: Order Comment: Speci men Type: BLOOD SPECIMEN [facility] Address: [address] [place] [address] Performed By: #### L [id number] #### [facility] CLIA [id number] [address] [place] [address] [place] Eosinophils (Bld) [#/Vol] 10*3/uL Normal <0.46 [facility] Comment on above: Order Comment: Speci men Type: BLOOD SPECIMEN [facility] Address: [address] [place] [address] Performed By: #### L [id number] #### [facility] CLIA [id number] [address] [place] [address] [place] Eosinophils/100 WBC (Bld) 0.1 % Normal [facility] Comment on above: Order Comment: Speci men Type: BLOOD SPECIMEN [facility] Address: [address] [place] [address] Performed By: #### L [id number] #### [facility] CLIA [id number] [address] [place] [address] [place] Erythrocyte distribution width (RBC) [Ratio] 16.1 % High 11.5-15.0 [facility] Comment on above: Order Comment: Speci men Type: BLOOD SPECIMEN [facility] Address: [address] [place] [address] Performed By: #### L [id number] #### [facility] CLIA [id number] [address] [place] [address] [place] Hematocrit (Bld) [Volume fraction] 40.3 % Normal 39.0-51.0 [facility] Comment on above: Order Comment: Speci men Type: BLOOD SPECIMEN [facility] Address: [address] [place] [address] Performed By: #### L [id number] #### [facility] CLIA [id number] [address] [place] [address] [place] Hemoglobin (Bld) [Mass/Vol] 12.9 g/dL Low 13.0-17.0 [facility] Comment on above: Order Comment: Speci men Type: BLOOD SPECIMEN [facility] Address: [address] [place] [address] Performed By: #### L [id number] #### [facility] CLIA [id number] [address] [place] [address] [place] Immature granulocytes (Bld) [#/Vol] 10*3/uL Normal <0.10 [facility] Comment on above: Order Comment: Speci men Type: BLOOD SPECIMEN [facility] Address: [address] [place] [address] Performed By: #### L [id number] #### [facility] CLIA [id number] [address] [place] [address] [place] Immature granulocytes/100 WBC (Bld) 0.1 % Normal [facility] Comment on above: Order Comment: Speci men Type: BLOOD SPECIMEN [facility] Address: [address] [place] [address] Performed By: #### L [id number] #### [facility] CLIA [id number] [address] [place] [address] [place] Lymphocytes (Bld) [#/Vol] 2.06 10*3/uL Normal 1.00-4.00 [facility] Comment on above: Order Comment: Speci men Type: BLOOD SPECIMEN [facility] Address: [address] [place] [address] Performed By: #### L [id number] #### [facility] CLIA [id number] [address] [place] [address] [place] Lymphocytes/100 WBC (Bld) 26.0 % Normal [facility] Comment on above: Order Comment: Speci men Type: BLOOD SPECIMEN [facility] Address: [address] [place] [address] Performed By: #### L [id number] #### [facility] CLIA [id number] [address] [place] [address] [place] MCH (RBC) [Entitic mass] 33.0 pg Normal 26.0-34.0 [facility] Comment on above: Order Comment: Speci men Type: BLOOD SPECIMEN [facility] Address: [address] [place] [address] Performed By: #### L [id number] #### [facility] CLIA [id number] [address] [place] [address] [place] MCHC (RBC) [Mass/Vol] 32.0 g/dL Normal 30.5-36.0 [facility] Comment on above: Order Comment: Speci men Type: BLOOD SPECIMEN [facility] Address: [address] [place] [address] Performed By: #### L [id number] #### [facility] CLIA [id number] [address] [place] [address] [place] MCV (RBC) [Entitic vol] 103.1 fL High 80.0-100.0 [facility] Comment on above: Order Comment: Speci men Type: BLOOD SPECIMEN [facility] Address: [address] [place] [address] Performed By: #### L [id number] #### [facility] CLIA [id number] [address] [place] [address] [place] Monocytes (Bld) [#/Vol] 0.68 10*3/uL Normal <0.87 [facility] Comment on above: Order Comment: Speci men Type: BLOOD SPECIMEN [facility] Address: [address] [place] [address] Performed By: #### L [id number] #### [facility] CLIA [id number] [address] [place] [address] [place] Monocytes/100 WBC (Bld) 8.6 % Normal [facility] Comment on above: Order Comment: Speci men Type: BLOOD SPECIMEN [facility] Address: [address] [place] [address] Performed By: #### L [id number] #### [facility] CLIA [id number] [address] [place] [address] [place] Neutrophils (Bld) [#/Vol] 5.13 10*3/uL Normal 1.45-7.50 [facility] Comment on above: Order Comment: Speci men Type: BLOOD SPECIMEN [facility] Address: [address] [place] [address] Performed By: #### L [id number] #### [facility] CLIA [id number] [address] [place] [address] [place] Neutrophils/100 WBC (Bld) 64.8 % Normal [facility] Comment on above: Order Comment: Speci men Type: BLOOD SPECIMEN [facility] Address: [address] [place] [address] Performed By: #### L [id number] #### [facility] CLIA [id number] [address] [place] [address] [place] Nucleated RBC (Bld) [#/Vol] 0.03 10*3/uL High <0.01 [facility] Comment on above: Order Comment: Speci men Type: BLOOD SPECIMEN [facility] Address: [address] [place] [address] Performed By: #### L [id number] #### [facility] CLIA [id number] [address] [place] [address] [place] Nucleated RBC/100 WBC (Bld) [Ratio] 0.4 /100 WBC Normal [facility] Comment on above: Order Comment: Speci men Type: BLOOD SPECIMEN [facility] Address: [address] [place] [address] Performed By: #### L [id number] #### [facility] CLIA [id number] [address] [place] [address] [place] Platelet mean volume (Bld) [Entitic vol] 10.5 fL Normal 9.0-12.7 [facility] Comment on above: Order Comment: Speci men Type: BLOOD SPECIMEN [facility] Address: [address] [place] [address] Performed By: #### L [id number] #### [facility] CLIA [id number] [address] [place] [address] [place] Platelets (Bld) [#/Vol] 272 10*3/uL Normal 150-400 [facility] Comment on above: Order Comment: Speci men Type: BLOOD SPECIMEN [facility] Address: [address] [place] [address] Performed By: #### L [id number] #### [facility] CLIA [id number] [address] [place] [address] [place] RBC (Bld) [#/Vol] 3.91 10*6/uL Low 4.20-6.00 [facility] Comment on above: Order Comment: Speci men Type: BLOOD SPECIMEN [facility] Address: [address] [place] [address] Performed By: #### L [id number] #### [facility] CLIA [id number] [address] [place] [address] [place] WBC (Bld) [#/Vol] 7.92 10*3/uL Normal 3.70-11.00 [facility] Comment on above: Order Comment: Speci men Type: BLOOD SPECIMEN [facility] Address: [address] [place] [address] Performed By: #### L [id number] #### [facility] CLIA [id number] [address] [place] [address] [place] Comprehensive metabolic 2000 panelon 01-19-2025 Albumin [Mass/Vol] 3.7 g/dL Low 3.9-4.9 [facility] Comment on above: Order Comment: Speci men Type: BLOOD SPECIMENOrdering Facility: [facility] Address: [address] [place] [address] Performed By: #### 3 3762-6, 20123-8, 54221-4, [id number] ####[facility] [id number] [place] [address] [place] ALP [Catalytic activity/Vol] 515 U/L High 38-113 [facility] Comment on above: Order Comment: Speci men Type: BLOOD SPECIMENOrdering Facility: [facility] Address: [address] [place], [place] [address] Performed By: #### 3 3762-6, 99516-8, 92481-9, [id number] ####[facility]IA [id number] [address] [address] [place] ALT [Catalytic activity/Vol] 23 U/L Normal 10-54 [facility] Comment on above: Order Comment: Speci men Type: BLOOD SPECIMENOrdering Facility: [facility] Address: [address] [place], [place] [address] Performed By: #### 3 3762-6, 13581-8, 34907-3, [id number] ####[facility] LAB[facility]IA [id number] [place] [address] [place] Anion gap [Moles/Vol] 18 mmol/L High 8-15 [facility] Comment on above: Order Comment: Speci men Type: BLOOD SPECIMENOrdering Facility: [facility] Address: [address] [place], [place] [address] Performed By: #### 3 3762-6, 19886-1, 91978-1, [id number] ####[facility] [id number] [address] [address] [place] AST [Catalytic activity/Vol] 23 U/L Normal 14-40 [facility] Comment on above: Order Comment: Speci men Type: BLOOD SPECIMENOrdering Facility: [facility] Address: [address] [place], [place] [address] Performed By: #### 3 3762-6, 80991-3, 54230-4, [id number] ####[facility] [id number] [address] [address] [place] Bilirubin [Mass/Vol] 5.6 mg/dL High 0.2-1.3 [facility] Comment on above: Order Comment: Speci men Type: BLOOD SPECIMENOrdering Facility: [facility] Address: [address] [place], [place] [address] Performed By: #### 3 3762-6, , , [id number] ####[facility] [id number] [address] [address] [place] Calcium [Mass/Vol] 9.2 mg/dL Normal 8.5-10.2 [facility] Comment on above: Order Comment: Speci men Type: BLOOD SPECIMENOrdering Facility: [facility] Address: [address] [place], [place] [address] Performed By: #### 3 3762-6, , , [id number] ####[facility] [id number] [place] [address] [place] Chloride [Moles/Vol] 103 mmol/L Normal 98-107 [facility] Comment on above: Order Comment: Speci men Type: BLOOD SPECIMENOrdering Facility: [facility] Address: [address] [place], [place] [address] Performed By: #### 3 3762-6, , , [id number] ####[facility] [id number] [address] [address] [place] CO2 [Moles/Vol] 20 mmol/L Low 22-30 [facility] Comment on above: Order Comment: Speci men Type: BLOOD SPECIMENOrdering Facility: [facility] Address: [address] [place], [place] [address] Performed By: #### 3 3762-6, , 50202-6, [id number] ####[facility] [id number] [address] [address] [place] Creatinine [Mass/Vol] 2.27 mg/dL High 0.73-1.22 [facility] Comment on above: Order Comment: Speci men Type: BLOOD SPECIMENOrdering Facility: [facility] Address: [address] [place] [address] Performed By: #### 3 3762-6, 55939-2, 34114-6, [id number] ####[facility] [id number] [address] [address] [place] eGFRcr SerPlBld CKD-EPI 2020 35 mL/min/1.73m??? Low >=60 [facility] Comment on above: Order Comment: Sunni reynoso Type: BLOOD SPECIMENOrdering Facility: [facility] Address: [address] [place] [address] Result Comment: Ella mated Glomerular Filtration Rate [...] actual GFR. Performed By: #### 3 3762-6, 50602-6, 24947-7, [id number] ####[facility] [id number] [address] [address] [place] Glucose [Mass/Vol] 119 mg/dL High 74-99 [facility] Comment on above: Order Comment: Sunni reynoso Type: BLOOD SPECIMENOrdering Facility: [facility] Address: [address] [place] [address] Result Comment: The [place] [employer] (ADA) provides guidance for cutoff [...] Standards of Medical Care in Diabetes 2016, [place] [employer]. Diabetes Care. 2016.39(Suppl 1). Performed By: #### 3 3762-6, 35275-8, 88405-3, [id number] ####[facility] [id number] [address] [place] [address] [place] Potassium [Moles/Vol] 3.5 mmol/L Low 3.7-5.1 [facility] Comment on above: Order Comment: Speci men Type: BLOOD SPECIMENOrdering Facility: [facility] Address: [address] [place], [place] [address] Performed By: #### 3 3762-6, 67949-9, 26437-1, [id number] ####[facility] [id number] [address] [address] [place] Protein [Mass/Vol] 7.4 g/dL Normal 6.3-8.0 [facility] Comment on above: Order Comment: Speci men Type: BLOOD SPECIMENOrdering Facility: [facility] Address: [address] [place], [place] [address] Performed By: #### 3 3762-6, , 46989-6, [id number] ####[facility] [id number] [address] [address] [place] Sodium [Moles/Vol] 141 mmol/L Normal 136-144 [facility] Comment on above: Order Comment: Speci men Type: BLOOD SPECIMENOrdering Facility: [facility] Address: [address] [place] [address] Performed By: #### 3 3762-6, 59916-1, 00487-3, [id number] ####[facility] [id number] [address] [address] [place] Urea nitrogen [Mass/Vol] 39 mg/dL High 9-24 [facility] Comment on above: Order Comment: Speci men Type: BLOOD SPECIMENOrdering Facility: [facility] Address: [address] [place] [address] Performed By: #### 3 3762-6, 30013-7, 91186-6, [id number] ####[facility] [id number] [place] [address] [place] ECG COMPLETEon 01-19-2025 ECG COMPLETE Ventricular Rate : 107 BPM Atrial Rate : 107 BPM P-R Interval : 138 ms QRS Duration : 142 ms Q-T Interval : 392 ms QTC Calculation(Bazett) : 523 ms Calculated P Arden : 49 degrees Calculated R Arden : 173 degrees Calculated T Arden : -4 degrees SINUS TACHYCARDIA WITH PREMATURE ATRIAL COMPLEXES NONSPECIFIC INTRAVENTRICULAR BLOCK POSSIBLE LATERAL MYOCARDIAL INFARCTION , AGE UNDETERMINED ABNORMAL ECG Confirmed by MD CAMARGO LUCY ([id number]), editorial cartoonist MANUELA JEFFERSON ([id number]) on 02/04/2025 10:50:23 PM NAME : CARLO MEDINA PID : [id number] : 1980 Gender : Male Race : ORD : [id number] Procedure Date : Jan 19 2025 15:33:31 Edit Date : Feb 04 2025 22:50:26 Diagnosis: SINUS TACHYCARDIA WITH PREMATURE ATRIAL COMPLEXES NONSPECIFIC INTRAVENTRICULAR BLOCK POSSIBLE LATERAL MYOCARDIAL INFARCTION , AGE UNDETERMINED ABNORMAL ECG Confirmed by MD CAMARGO LUCY ([id number]), editorial cartoonist MANUELA JEFFERSON ([id number]) on 02/04/2025 10:50:23 PM Test Reason : Location : 2 : [place] [address]- Overread By : MD CAMARGO LUCY Edited By : MANUELA JEFFERSON Referred By : , Acquired by : Ermelinda swanson [facility] ED NOTEon 01-19-2025 ED NOTE HNO ID: [id number] Author: FELIPE MONTAGUE CT Service: Emergency Medicine Author Type: Clinical Facilities Clerk Type: ED Notes Filed: 01/19/2025 19:50 Note Text: Safety and comfort care check round. Normal [facility] ED PROV NOTEon 01-19-2025 ED PROV NOTE HNO ID: [id number] Author: LA YUN MD Service: Emergency Medicine [...] is a 44 year old male w PMH HTN, NICM, HFrEF (EF 15%), CKD3, cirrhosis, [...] All othe (more content not included)... Normal [facility] ED Triage Noteon 01-19-2025 ED Triage Note HNO ID: [id number] Author: DALI CAMARGO MD Service: Emergency Medicine [...] W INTERPRETATION SIGNATURE: Dali Camargo MD Normal [facility] HIGH SENSITIVITY TROPONIN T (INITIAL)on 01-19-2025 Troponin T.cardiac High sensitivity method [Mass/Vol] 52 ng/L High <12 [facility] Comment on above: Order Comment: Speci men Type: BLOOD SPECIMENOrdering Facility: [facility] Address: [address] [place] [address] Performed By: #### 3 3762-6, 90637-3, 17350-4, [id number] ####[facility] [id number] [place] [address] [place] HIGH SENSITIVITY TROPONIN T (SECOND)on 01-19-2025 Troponin T.cardiac High sensitivity method [Mass/Vol] 50 ng/L High <12 [facility] Comment on above: Order Comment: Speci men Type: BLOOD SPECIMEN [facility] Address: [address] [place] [address] Performed By: #### L [id number] #### [facility] CLIA [id number] [address] [place] [address] [place] HIGH SENSITIVITY TROPONIN T (THIRD) 3 HRS AFTER INITIALon 01-19-2025 Troponin T.cardiac High sensitivity method [Mass/Vol] 52 ng/L High <12 [facility] Comment on above: Order Comment: Speci men Type: BLOOD SPECIMEN [facility] Address: [address] [place] [address] Performed By: #### L [id number] #### [facility] CLIA [id number] [address] [place] [address] [place] HISTORY PHYSICALon HISTORY PHYSICAL HNO ID: [id number] Author: MAGED CORREA MD Service: Cardiovascular Medicine Author Type: Physician Type: H&P Filed: 01/20/2025 13:26 Note Text: [facility]ARDI[facility]ASCULAR MEDICINE HISTORY AND PHYSICAL NAME:Carlo Medina PRIMARY SERVICE: [facility] - Clinical 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 Normal [facility] [Mass/Vol] 2.3 mg/dL Normal 1.7-2.3 [facility] Comment on above: Order Comment: Sunni reynoso Type: BLOOD SPECIMENOrdering Facility: [facility] Address: [address] [place] [address] Performed By: #### 3 3762-6, 77785-7, 15099-5, [id number] ####[facility] [id number] [address] [place] [facility] 01-19 Natriuretic peptide.B prohormone N-Terminal [Mass/Vol] 34113 pg/mL High <125 [facility] Comment on above: Order Comment: Sunni reynoso Type: BLOOD SPECIMENOrdering Facility: [facility] Address: [address] [place] [address] Performed By: #### 3 3762-6, 41084-4, 59968-1, [id number] ####[facility] [id number] [place] [address] [place] NURSING PROGon 01-19-2025 NURSING PROG HNO ID: [id number] Author: MARIANA POTTER RN Service: ? Author Type: Registered Nurse Type: Nursing Progress Note Filed: 01/19/2025 22:50 Note Text: 2114: pt arrived to J73 from ED. Sepsis alert popped up on EHR. RN paged primary to notify. Awaiting orders. Normal [facility] PT panel Coag (PPP)on 2024 INR Coag (PPP) [Relative time] 1.5 {INR} High 0.9-1.3 [facility] Comment on above: Order Comment: Sunni reynoso Type: BLOOD SPECIMEN [facility] Address: [address] [place] [address] Result Comment: Gayla min K Antagonist (VKA) Therapeutic Range: INR 2 to 3 (Target INR of 2.5) Note: For patients treated with VKA drugs, such as warfarin, the [place] [employer] 2012 Guideline recommends [...] Chest 2012, 141:7S-47S Evelyn RA, et al. [facility] 2017, 70: 252-289 Performed By: #### L [id number] #### [facility] CLIA [id number] [address] [place] [address] [place] PT Coag (PPP) [Time] 15.4 s High 9.7-13.0 [facility] Comment on above: Order Comment: Sunni reynoso Type: BLOOD SPECIMEN [facility] Address: [address] [place] [address] Performed By: #### L [id number] #### [facility] CLIA [id number] [address] [place] [address] [place] US DVT LOWER BILon 5 US DVT LOWER EVANS * * *Final Report* * * DATE OF EXAM: Jan 19 2025 5:37PM FLU 1005 - US DVT LOWER EVANS / [...] of the distal left common femoral vein. Associate Chemist: JOSE Transcribe Date/Time: Jan 19 2025 6:16P Dictated by : SIMÓN BENJAMIN MD This examination was interpreted and the report reviewed and electronically signed by: VAL BROTHERS MD on Jan 19 2025 6:19PM EST [id number] N Normal [facility] XR CHEST 1V FRONTAL PORTon 0 01-19-2025 [...] acute radiographic abnormality. Stable enlarged cardiac silhouette. Associate Chemist: PSCB Transcribe Date/Time: Jan 19 2025 4:11P Dictated by : SIMÓN BENJAMIN MD This examination was interpreted and the report reviewed and electronically signed by: REBECCA GUPTA MD on Jan 19 2025 5:11PM EST [id number] N Normal [facility] aPTT PPPon 01-19-2025 aPTT Coag (PPP) [Time] 29.2 s Normal 23.0-32.4 [facility] Comment on above: Order Comment: Speci men Type: BLOOD SPECIMENOrdering Facility: [facility] Address: [address] [place] [address] Performed By: #### 3 4528-0, 47315-8 ####[facility] LABCLIA [id number] [place] [address] [place] Anion gap in Serum or Plasma Ordered By: Anshul Lemus on 01-10-2025 Anion gap [Moles/Vol] 11 mmol/L 5-15 [facility] BUN/creatinine ratioOrdered By: Anshul Lemus on 01-10-2025 Urea nitrogen/Creatinine [Mass ratio] 14.6 mg/mg 10-20 [facility] Bilirubin, totalOrdered By: Anshul Lemus on 01-10-2025 Bilirubin [Mass/Vol] 2.47 mg/dL High 0.00-1.30 [facility] Carbon dioxide, total [Moles /volume] in Central venous bloodOrdered By: Anshul Lemus on 01-10-2025 CO2 [Moles/Vol] 26.1 mmol/L 21.0-32.0 [facility] Chloride assayOrdered By: Farooq Lemus on 01-10-2025 Chloride [Moles/Vol] 102 mmol/L 98-108 [facility] Comprehensive Metabolic Prof ilon 01-10-2025 Albumin [Mass/Vol] 2.9 g/dL Low 3.5-5.0 [facility] Comment on above: Performed By: #### L 500.4050 #### [facility] Laboratory [address] [place], [address] Albumin/Globulin [Mass ratio] 1.0 {ratio} Normal 0.9-2.4 [facility] Comment on above: Performed By: #### L 500.4050 #### [facility] [address] [place], [address] ALK PHOS 454 U/L High 40-129 [facility] Comment on above: Performed By: #### L 500.4050 #### [facility] [address] [place], [address] ALT [Catalytic activity/Vol] 18 U/L Normal <=46 [facility] Comment on above: Performed By: #### L [id number] #### [facility] [address] [place], [address] AST [Catalytic activity/Vol] 30 U/L Normal <=37 [facility] Comment on above: Performed By: #### L [id number] #### [facility] [address] [place], [address] Bilirubin [Mass/Vol] 2.47 mg/dL High 0.00-1.30 [facility] Comment on above: Performed By: #### L [id number] #### [facility] [address] [place], [address] BUN/CRE 14.6 RATIO Normal 10-20 [facility] Comment on above: Performed By: #### L [id number] #### [facility] [address] [place], [address] Calcium [Mass/Vol] 7.9 mg/dL Normal 7.6-11.0 [facility] Comment on above: Performed By: #### L [id number] #### [facility] [address] [place], [address] Chloride [Moles/Vol] 102 mmol/L Normal 98-108 [facility] Comment on above: Performed By: #### L [id number] #### [facility] [address] [place], [address] CO2 [Moles/Vol] 26.1 mmol/L Normal 21.0-32.0 [facility] Comment on above: Performed By: #### L [id number] #### [facility] [address] [place], [address] Creatinine [Mass/Vol] 1.55 mg/dL High 0.70-1.20 [facility] Comment on above: Performed By: #### L [id number] #### [facility] [address] [place], [address] ECRCL 61.74 ml/min Normal 50-250 [facility] Comment on above: Performed By: #### L 500.4050 #### [facility] [address] [place], [address] GAP 11 Normal 5-15 [facility] Comment on above: Performed By: #### L 500.4050 #### [facility] [address] [place], [address] GFR/1.73 sq M.predicted among non-blacks MDRD (S/P/Bld) [Vol rate/Area] 56 mL/min/{1.73_m2} Low >60 [facility] Comment on above: Result Comment: mL/m in/1.73m2 CKD-EPI Creatinine Equation (2020) Performed By: #### L 500.4050 #### [facility] [address] [place], [address] Globulin (S) [Mass/Vol] 2.9 g/dL Normal 2.2-4.2 [facility] Comment on above: Performed By: #### L [id number] #### [facility] [address] [place], [address] Glucose [Mass/Vol] 92 mg/dL Normal 70-99 [facility] Comment on above: Performed By: #### L [id number] #### [facility] [address] [place], [address] Potassium [Moles/Vol] 3.9 mmol/L Normal 3.3-5.1 [facility] Comment on above: Performed By: #### L [id number] #### [facility] [address] [place], [address] Sodium [Moles/Vol] 139 mmol/L Normal 133-145 [facility] Comment on above: Performed By: #### L [id number] #### [facility] [address] [place], [address] T PROT 5.8 g/dL Low 5.9-8.4 [facility] Comment on above: Performed By: #### L 500.4050 #### [facility] [address] [place], [address] Urea nitrogen [Mass/Vol] 23 mg/dL High 4-19 [facility] Comment on above: Performed By: #### L 500.4050 #### [facility] [address] [place], [place], [address] Glomerular filtration rate ( GFR) estimation/1.73 sq m using serum, plasma, or whole bOrdered By: Anshul Lemus on 01-10-2025 GFR/1.73 sq M.predicted among non-blacks MDRD (S/P/Bld) [Vol rate/Area] 56 mL/min/{1.73_m2} Low >60 [facility] Comment on above: mL/min/1.73m2 CKD-EP I Creatinine Equation (2020) Laboratory - Chemistry and C hemistry - challengeOrdered By: Anshul Lemus on 01-10-2025 AST [Catalytic activity/Vol] 30 U/L <38 [facility] Potassium measurement (mass/ volume)Ordered By: Anshul Lemus on 01-10-2025 Potassium (Unsp spec) [Mass/Vol] 3.9 mmol/L 3.3-5.1 [facility] Serum creatinine measurement (mass/volume)Ordered By: Anshul Lemus on 01-10-2025 Creatinine [Mass/Vol] 1.55 mg/dL High 0.70-1.20 [facility] Serum globulin measurementOr dered By: Anshul Lemus on 01-10-2025 Globulin (S) [Mass/Vol] 2.9 g/dL 2.2-4.2 [facility] Serum glucose measurement (m ass/volume)Ordered By: Anshul Lemus on 01-10-2025 Glucose [Mass/Vol] 92 mg/dL 70-99 [facility] Serum or plasma alanine de paz otransferase (ALT) measurementOrdered By: Anshul Lemus on 01-10-2025 ALT [Catalytic activity/Vol] 18 U/L <47 [facility] Serum or plasma albumin fidel urement (mass/volume)Ordered By: Anshul Lemus on 01-10-2025 Albumin [Mass/Vol] 2.9 g/dL Low 3.5-5.0 [facility] Serum or plasma albumin/glob ulin mass ratioOrdered By: Anshul Lemus on 01-10-2025 Albumin/Globulin [Mass ratio] 1.0 {ratio} 0.9-2.4 [facility] Serum or plasma alkaline nick sphatase measurementOrdered By: Anshul Lemus on 01-10-2025 ALP [Catalytic activity/Vol] 454 U/L High 40-129 [facility] Serum or plasma calcium fidel urement (mass/volume)Ordered By: Anshul Lemus on 01-10-2025 Calcium [Mass/Vol] 7.9 mg/dL 7.6-11.0 [facility] Serum or plasma urea nitroge n measurement (mass/volume)Ordered By: Anshul Lemus on 01-10-2025 Urea nitrogen [Mass/Vol] 23 mg/dL High 4-19 [facility] Sodium levelOrdered By: Anshul Lemus on 01-10-2025 Sodium [Moles/Vol] 139 mmol/L 133-145 [facility] Total proteinOrdered By: Damari Lemus on 01-10-2025 Protein [Mass/Vol] 5.8 g/dL Low 5.9-8.4 [facility] Basic Metabolic Profile (BMP )on 01-09-2025 BUN/CRE 14.5 RATIO Normal 10-20 [facility] Comment on above: Performed By: #### L 500.2500 #### [facility] [address] [place], [address] Calcium [Mass/Vol] 7.9 mg/dL Normal 7.6-11.0 [facility] Comment on above: Performed By: #### L 500.2500 #### [facility] [address] [place], [address] Chloride [Moles/Vol] 102 mmol/L Normal 98-108 [facility] Comment on above: Performed By: #### L 500.2500 #### [facility] [address] [place], [address] CO2 [Moles/Vol] 27.2 mmol/L Normal 21.0-32.0 [facility] Comment on above: Performed By: #### L 500.2500 #### [facility] [address] [place], [address] Creatinine [Mass/Vol] 1.70 mg/dL High 0.70-1.20 [facility] Comment on above: Performed By: #### L 500.2500 #### [facility] [address] [place], [address] ECRCL 59.21 ml/min Normal 50-250 [facility] Comment on above: Performed By: #### L 500.2500 #### [facility] [address] [place], [address] GAP 11 Normal 5-15 [facility] Comment on above: Performed By: #### L 500.2500 #### [facility] [address] [place], [address] GFR/1.73 sq M.predicted among non-blacks MDRD (S/P/Bld) [Vol rate/Area] 50 mL/min/{1.73_m2} Low >60 [facility] Comment on above: Result Comment: mL/m in/1.73m2 CKD-EPI Creatinine Equation (2020) Performed By: #### L 500.2500 #### [facility] [address] [place], [address] Glucose [Mass/Vol] 106 mg/dL High 70-99 [facility] Comment on above: Performed By: #### L 500.2500 #### [facility] [address] [place], [address] Potassium [Moles/Vol] 3.8 mmol/L Normal 3.3-5.1 [facility] Comment on above: Performed By: #### L 500.2500 #### [facility] [address] [place], [address] Sodium [Moles/Vol] 140 mmol/L Normal 133-145 [facility] Comment on above: Performed By: #### L 500.2500 #### [facility] [address] [place], [address] Urea nitrogen [Mass/Vol] 25 mg/dL High 4-19 [facility] Comment on above: Performed By: #### L 500.2500 #### [facility] [address] [place], [address] Basic Metabolic Profile (BMP )on 01-08-2025 BUN/CRE 12.6 RATIO Normal 10-20 [facility] Comment on above: Performed By: #### L 500.4050, L100.0100 #### [facility] [address] [place], [address] Calcium [Mass/Vol] 8.3 mg/dL Normal 7.6-11.0 [facility] Comment on above: Performed By: #### L 500.4050, L100.0100 #### [facility] [address] [place], [address] Chloride [Moles/Vol] 101 mmol/L Normal 98-108 [facility] Comment on above: Performed By: #### L 500.4050, L100.0100 #### [facility] [address] [place], [address] CO2 [Moles/Vol] 28.2 mmol/L Normal 21.0-32.0 [facility] Comment on above: Performed By: #### L 500.4050, L100.0100 #### [facility] [address] [place], [address] Creatinine [Mass/Vol] 1.83 mg/dL High 0.70-1.20 [facility] Comment on above: Performed By: #### L 500.4050, L100.0100 #### [facility] [address] [place], [address] ECRCL 54.58 ml/min Normal 50-250 [facility] Comment on above: Performed By: #### L 500.4050, L100.0100 #### [facility] [address] [place], [address] GAP 12 Normal 5-15 [facility] Comment on above: Performed By: #### L 500.4050, L100.0100 #### [facility] [address] [place], [address] GFR/1.73 sq M.predicted among non-blacks MDRD (S/P/Bld) [Vol rate/Area] 46 mL/min/{1.73_m2} Low >60 [facility] Comment on above: Result Comment: mL/m in/1.73m2 CKD-EPI Creatinine Equation (2020) Performed By: #### L 500.4050, L100.0100 #### [facility] [address] [place], [address] Glucose [Mass/Vol] 100 mg/dL High 70-99 [facility] Comment on above: Performed By: #### L 500.4050, L100.0100 #### [facility] [address] [place], [address] Potassium [Moles/Vol] 3.8 mmol/L Normal 3.3-5.1 [facility] Comment on above: Performed By: #### L 500.4050, L100.0100 #### [facility] [address] [place], [address] Sodium [Moles/Vol] 141 mmol/L Normal 133-145 [facility] Comment on above: Performed By: #### L 500.4050, L100.0100 #### [facility] [address] [place], [address] Urea nitrogen [Mass/Vol] 23 mg/dL High 4-19 [facility] Comment on above: Performed By: #### L 500.4050, L100.0100 #### [facility] [address] [place], [address] Comprehensive Metabolic Prof ilon 01-07-2025 Albumin [Mass/Vol] 3.2 g/dL Low 3.5-5.0 [facility] Comment on above: Order Comment: CAUGH T WHEN STORING TUBES AND WAS FOUND ON TRACKING LOG.PULLED TUBE IMMEDIATELY AND RAN. Performed By: #### L 499.0042 #### [facility] [address] [place], [address] Albumin/Globulin [Mass ratio] 1.1 {ratio} Normal 0.9-2.4 [facility] Comment on above: Order Comment: CAUGH T WHEN STORING TUBES AND WAS FOUND ON TRACKING LOG.PULLED TUBE IMMEDIATELY AND RAN. Performed By: #### L 499.0042 #### [facility] [address] [place], [address] ALK PHOS 585 U/L High 40-129 [facility] Comment on above: Order Comment: CAUGH T WHEN STORING TUBES AND WAS FOUND ON TRACKING LOG.PULLED TUBE IMMEDIATELY AND RAN. Performed By: #### L 499.0042 #### [facility] [address] [place], [address] ALT [Catalytic activity/Vol] 20 U/L Normal <=46 [facility] Comment on above: Order Comment: CAUGH T WHEN STORING TUBES AND WAS FOUND ON TRACKING LOG.PULLED TUBE IMMEDIATELY AND RAN. Performed By: #### L 499.0042 #### [facility] [address] [place], [address] AST [Catalytic activity/Vol] 29 U/L Normal <=37 [facility] Comment on above: Order Comment: CAUGH T WHEN STORING TUBES AND WAS FOUND ON TRACKING LOG.PULLED TUBE IMMEDIATELY AND RAN. Performed By: #### L 499.0042 #### [facility] [address] [place], [address] Bilirubin [Mass/Vol] 2.65 mg/dL High 0.00-1.30 [facility] Comment on above: Order Comment: CAUGH T WHEN STORING TUBES AND WAS FOUND ON TRACKING LOG.PULLED TUBE IMMEDIATELY AND RAN. Performed By: #### L 499.0042 #### [facility] [address] [place], [address] BUN/CRE 13.1 RATIO Normal 10-20 [facility] Comment on above: Order Comment: CAUGH T WHEN STORING TUBES AND WAS FOUND ON TRACKING LOG.PULLED TUBE IMMEDIATELY AND RAN. Performed By: #### L 499.0042 #### [facility] [address] [place], [address] Calcium [Mass/Vol] 8.0 mg/dL Normal 7.6-11.0 [facility] Comment on above: Order Comment: CAUGH T WHEN STORING TUBES AND WAS FOUND ON TRACKING LOG.PULLED TUBE IMMEDIATELY AND RAN. Performed By: #### L 499.0042 #### [facility] [address] [place], [address] Chloride [Moles/Vol] 102 mmol/L Normal 98-108 [facility] Comment on above: Order Comment: CAUGH T WHEN STORING TUBES AND WAS FOUND ON TRACKING LOG.PULLED TUBE IMMEDIATELY AND RAN. Performed By: #### L 499.0042 #### [facility] [address] [place], [address] CO2 [Moles/Vol] 28.4 mmol/L Normal 21.0-32.0 [facility] Comment on above: Order Comment: CAUGH T WHEN STORING TUBES AND WAS FOUND ON TRACKING LOG.PULLED TUBE IMMEDIATELY AND RAN. Performed By: #### L 499.0042 #### [facility] [address] [place], [address] Creatinine [Mass/Vol] 1.75 mg/dL High 0.70-1.20 [facility] Comment on above: Order Comment: CAUGH T WHEN STORING TUBES AND WAS FOUND ON TRACKING LOG.PULLED TUBE IMMEDIATELY AND RAN. Performed By: #### L 499.0042 #### [facility] [address] [place], [address] ECRCL 56.03 ml/min Normal 50-250 [facility] Comment on above: Order Comment: CAUGH T WHEN STORING TUBES AND WAS FOUND ON TRACKING LOG.PULLED TUBE IMMEDIATELY AND RAN. Performed By: #### L 499.0042 #### [facility] [address] [place], [address] GAP 10 Normal 5-15 [facility] Comment on above: Order Comment: CAUGH T WHEN STORING TUBES AND WAS FOUND ON TRACKING LOG.PULLED TUBE IMMEDIATELY AND RAN. Performed By: #### L 499.0042 #### [facility] [address] [place], [address] GFR/1.73 sq M.predicted among non-blacks MDRD (S/P/Bld) [Vol rate/Area] 48 mL/min/{1.73_m2} Low >60 [facility] Comment on above: Order Comment: CAUGH T WHEN STORING TUBES AND WAS FOUND ON TRACKING LOG.PULLED TUBE IMMEDIATELY AND RAN. Result Comment: mL/m in/1.73m2 CKD-EPI Creatinine Equation (2020) Performed By: #### L 499.0042 #### [facility] [address] [place], [address] Globulin (S) [Mass/Vol] 2.8 g/dL Normal 2.2-4.2 [facility] Comment on above: Order Comment: CAUGH T WHEN STORING TUBES AND WAS FOUND ON TRACKING LOG.PULLED TUBE IMMEDIATELY AND RAN. Performed By: #### L 499.0042 #### [facility] [address] [place], [address] Glucose [Mass/Vol] 94 mg/dL Normal 70-99 [facility] Comment on above: Order Comment: CAUGH T WHEN STORING TUBES AND WAS FOUND ON TRACKING LOG.PULLED TUBE IMMEDIATELY AND RAN. Performed By: #### L 499.0042 #### [facility] [address] [place], [address] Potassium [Moles/Vol] 3.1 mmol/L Low 3.3-5.1 [facility] Comment on above: Order Comment: CAUGH T WHEN STORING TUBES AND WAS FOUND ON TRACKING LOG.PULLED TUBE IMMEDIATELY AND RAN. Performed By: #### L 499.0042 #### [facility] [address] [place], [address] Sodium [Moles/Vol] 141 mmol/L Normal 133-145 [facility] Comment on above: Order Comment: CAUGH T WHEN STORING TUBES AND WAS FOUND ON TRACKING LOG.PULLED TUBE IMMEDIATELY AND RAN. Performed By: #### L 499.0042 #### [facility] [address] [place], [address] T PROT 6.0 g/dL Normal 5.9-8.4 [facility] Comment on above: Order Comment: CAUGH T WHEN STORING TUBES AND WAS FOUND ON TRACKING LOG.PULLED TUBE IMMEDIATELY AND RAN. Performed By: #### L 499.0042 #### [facility] [address] [place], [address] Urea nitrogen [Mass/Vol] 23 mg/dL High 4-19 [facility] Comment on above: Order Comment: CAUGH T WHEN STORING TUBES AND WAS FOUND ON TRACKING LOG.PULLED TUBE IMMEDIATELY AND RAN. Performed By: #### L 499.0042 #### [facility] [address] [place], [address] Consultation - Cardiologyon 01-07-2025 Consultation - Cardiology [facility] Medical Records Department [address] [place] [address] Consultation - Cardiology 01/07/25 1336 MR#: [id number] Acct: [id number] Name: CARLO MEDINA Rep #: [id number] : 1980 44 From: Lavon Campo MD PCP: Care Physician,No Primary Status:ADM IN Location: [place] [address] Assessment Plan Assessment/Plan (1) HFrEF (heart failure [...] and SGLT2 Recommend transferring the patient to [facility] for BiV evaluation. Noncompliance is a [...] over at [facility] and recently was over at [facility] in September. It is documented throughout his charts at [facility] as well as [facility] that he has a history of [...] av block with intermittent CHB. [facility] Medical History Kidney disease Non-smoker [...] Non-Af 46 (more content not included)... Normal [facility] Absolute lymphocyte countOrd ered By: Anshul Lemus on 01-06-2025 Lymphocytes Auto (Unsp spec) [#/Vol] 1.71 10*3/uL 0.83-4.51 [facility] Absolute neutrophil countOrd ered By: Anshul Lemus on 01-06-2025 Neutrophils (Bld) [#/Vol] 3.8 10*3/uL 2.0-7.7 [facility] Automated lymphocyte count a s percentage of total leukocytesOrdered By: Anshul Lemus on 01-06-2025 Lymphocytes/100 WBC Auto (Unsp spec) 28.0 % 19-41 [facility] Basophil percentageOrdered B y: Anshul Lemus on 01-06-2025 Basophils/100 WBC (Bld) 0.3 % 0-1 [facility] CBC W/Diff, Automatedon 12-28 Absolute Lymph 1.71 X10 3/uL Normal 0.83-4.51 [facility] Comment on above: Performed By: #### L 500.4050, L100.0100 #### [facility] [address] [place], [place], [address] Absolute Neut 3.8 X10 3/uL Normal 2.0-7.7 [facility] Comment on above: Performed By: #### L 500.4050, L100.0100 #### [facility] [address] [place], [address] Basophils/100 WBC (Bld) 0.3 % Normal 0-1 [facility] Comment on above: Performed By: #### L 500.4050, L100.0100 #### [facility] [address] [place], [address] Eosinophils/100 WBC (Bld) 1.0 % Normal 0-5 [facility] Comment on above: Performed By: #### L 500.4050, L100.0100 #### [facility] [address] [place], [address] Erythrocyte distribution width (RBC) [Ratio] 15.0 % High 11.6-14.6 [facility] Comment on above: Performed By: #### L 500.4050, L100.0100 #### [facility] [address] [place], [address] Hematocrit (Bld) [Volume fraction] 37.0 % Low 40-54 [facility] Comment on above: Performed By: #### L 500.4050, L100.0100 #### [facility] [address] [place], [address] Hemoglobin (Bld) [Mass/Vol] 11.9 g/dL Low 13.0-16.5 [facility] Comment on above: Performed By: #### L 500.4050, L100.0100 #### [facility] [address] [place], [address] IG% 0.200 Normal 0.0-0.9 [facility] Comment on above: Result Comment: IG% - Immature Granulocytes (promyelocytes, myelocytes and metamyelocytes) > 1% indicates that a LEFT SHIFT is Present. Performed By: #### L 500.4050, L100.0100 #### [facility] [address] [place], [address] Lymphocytes/100 WBC (Bld) 28.0 % Normal 19-41 [facility] Comment on above: Performed By: #### L 500.4050, L100.0100 #### [facility] [address] [place], [address] MCH (RBC) [Entitic mass] 33.6 pg High 27.0-32.0 [facility] Comment on above: Performed By: #### L 500.4050, L100.0100 #### [facility] [address] [place], [address] MCHC (RBC) [Mass/Vol] 32.2 g/dL Normal 32-36 [facility] Comment on above: Performed By: #### L 500.4050, L100.0100 #### [facility] [address] [place], [address] MCV (RBC) [Entitic vol] 104.5 fL High 80-94 [facility] Comment on above: Performed By: #### L 500.4050, L100.0100 #### [facility] [address] [place], [address] Monocytes/100 WBC (Bld) 8.9 % Normal 0-10 [facility] Comment on above: Performed By: #### L 500.4050, L100.0100 #### [facility] [facility] [address] [place], [address] Neutrophils/100 WBC (Bld) 61.6 % Normal 47-70 [facility] Comment on above: Performed By: #### L 500.4050, L100.0100 #### [facility] [address] [place], [address] Nucleated RBC (Bld) [#/Vol] 0 10*3/uL Normal 0-5 [facility] Comment on above: Performed By: #### L 500.4050, L100.0100 #### [facility] [address] [place], [address] Platelet mean volume (Bld) [Entitic vol] 10.0 fL Normal 6.2-12.0 [facility] Comment on above: Performed By: #### L 500.4050, L100.0100 #### [facility] [address] [place], [address] Platelets (Bld) [#/Vol] 219 10*3/uL Normal 150-450 [facility] Comment on above: Performed By: #### L 500.4050, L100.0100 #### [facility] [address] [place], [address] RBC (Bld) [#/Vol] 3.54 10*6/uL Low 4.6-6.2 [facility] Comment on above: Performed By: #### L 500.4050, L100.0100 #### [facility] [address] [place], [address] RDW SD 57.7 fl High 35.1-43.9 [facility] Comment on above: Performed By: #### L 500.4050, L100.0100 #### [facility] [address] [place], [address] WBC (Bld) [#/Vol] 6.1 10*3/uL Normal 4.4-11.0 [facility] Comment on above: Performed By: #### L 500.4050, L100.0100 #### [facility] [address] [place], [address] Comprehensive Metabolic Prof [facility] 01-06-2025 Albumin [Mass/Vol] 3.1 g/dL Low 3.5-5.0 [facility] Comment on above: Performed By: #### L 500.4050, L100.0100 #### [facility] [address] [place], [address] Albumin/Globulin [Mass ratio] 1.1 {ratio} Normal 0.9-2.4 [facility] Comment on above: Performed By: #### L 500.4050, L100.0100 #### [facility] [address] [place], [address] ALK PHOS 638 U/L High 40-129 [facility] Comment on above: Performed By: #### L 500.4050, L100.0100 #### [facility] [address] [place], [address] ALT [Catalytic activity/Vol] 19 U/L Normal <=46 [facility] Comment on above: Performed By: #### L 500.4050, L100.0100 #### [facility] [address] [place], [address] AST [Catalytic activity/Vol] 27 U/L Normal <=37 [facility] Comment on above: Performed By: #### L 500.4050, L100.0100 #### [facility] [address] [place], [address] Bilirubin [Mass/Vol] 2.99 mg/dL High 0.00-1.30 [facility] Comment on above: Performed By: #### L 500.4050, L100.0100 #### [facility] [address] [place], [address] BUN/CRE 14.3 RATIO Normal 10-20 [facility] Comment on above: Performed By: #### L 500.4050, L100.0100 #### [facility] [address] [place], [address] Calcium [Mass/Vol] 8.2 mg/dL Normal 7.6-11.0 [facility] Comment on above: Performed By: #### L 500.4050, L100.0100 #### [facility] [address] [place], [address] Chloride [Moles/Vol] 103 mmol/L Normal 98-108 [facility] Comment on above: Performed By: #### L 500.4050, L100.0100 #### [facility] [address] [place], [address] CO2 [Moles/Vol] 26.8 mmol/L Normal 21.0-32.0 [facility] Comment on above: Performed By: #### L 500.4050, L100.0100 #### [facility] [address] [place], [address] Creatinine [Mass/Vol] 1.91 mg/dL High 0.70-1.20 [facility] Comment on above: Performed By: #### L 500.4050, L100.0100 #### [facility] [address] [place], [address] ECRCL 52.15 ml/min Normal 50-250 [facility] Comment on above: Performed By: #### L 500.4050, L100.0100 #### [facility] [address] [place], [address] GAP 13 Normal 5-15 [facility] Comment on above: Performed By: #### L 500.4050, L100.0100 #### [facility] [address] [place], [address] GFR/1.73 sq M.predicted among non-blacks MDRD (S/P/Bld) [Vol rate/Area] 43 mL/min/{1.73_m2} Low >60 [facility] Comment on above: Result Comment: mL/m in/1.73m2 CKD-EPI Creatinine Equation (2020) Performed By: #### L 500.4050, L100.0100 #### [facility] [address] [place], [address] Globulin (S) [Mass/Vol] 2.9 g/dL Normal 2.2-4.2 [facility] Comment on above: Performed By: #### L 500.4050, L100.0100 #### [facility] [address] [place], [address] Glucose [Mass/Vol] 97 mg/dL Normal 70-99 [facility] Comment on above: Performed By: #### L 500.4050, L100.0100 #### [facility] [address] [place], [address] Potassium [Moles/Vol] 3.1 mmol/L Low 3.3-5.1 [facility] Comment on above: Performed By: #### L 500.4050, L100.0100 #### [facility] [address] [place], [address] Sodium [Moles/Vol] 143 mmol/L Normal 133-145 [facility] Comment on above: Performed By: #### L 500.4050, L100.0100 #### [facility] [address] [place], [address] T PROT 6.0 g/dL Normal 5.9-8.4 [facility] Comment on above: Performed By: #### L 500.4050, L100.0100 #### [facility] [address] [place], [address] Urea nitrogen [Mass/Vol] 27 mg/dL High 4-19 [facility] Comment on above: Performed By: #### L 500.4050, L100.0100 #### [facility] [address] [place], [address] Electrocardiogram reportOrde red By: Clark Almaraz on 01-06-2025 EKG study [facility] [address] [place] [address] 12 Lead EKG 07/08/25 0734 MR#: [id number] Acct: [id number] Name: CARLO MEDINA Rep #:[id number] : 1980 44 From: Clark Almaraz MD Attending Dr: Dr. Anshul Lemus DO Status: ADM IN Ordering Dr: Deborah Penaloza DO Date: 0 01/04/25 Location: [facility] Sex: M AA Admitted: 01/04/25 Test Reason [...] Abnormal ECG Reconfirmed by CLARK ALMARAZ MD ([id number]), editorial cartoonist GRACE KIDD ([id number]) on 01/06/2025 6:44:03 AM Referred By: Confirmed By: CLARK ALMARAZ MD 01/06/25 0644 Date _ Clark Almaraz MD CC: Dr. Deborah Penaloza, ; Dr. Anshul Lemus DO; No Primary Care Physician ~ Signed [facility] Work Phone: Eosinophil percentageOrdered By: Anshul Lemus on 01-06-2025 Eosinophils/100 WBC (Bld) 1.0 % 0-5 [facility] Erythrocyte distribution wid th ratioOrdered By: Anshul Lemus on 01-06-2025 Erythrocyte distribution width (RBC) [Ratio] 15.0 % High 11.6-14.6 [facility] Erythrocyte distribution wid th standard deviationOrdered By: Anshul Lemus on 01-06-2025 Erythrocyte distribution width (RBC) [Ratio] 57.7 fl High 35.1-43.9 [facility] Hematocrit Auto (Bld) [Volum e fraction]Ordered By: Anshul Lemus on 01-06-2025 Hematocrit (Bld) [Volume fraction] 37.0 % Low 40-54 [facility] Hemoglobin measurementOrdere d By: Anshul Lemus on 01-06-2025 Hemoglobin (Bld) [Mass/Vol] 11.9 g/dL Low 13.0-16.5 [facility] Immature granulocytes/100 WB C Auto (Bld)Ordered By: Anshul Lemus on 01-06-2025 Immature granulocytes/100 WBC (Bld) 0.200 % 0.0-0.9 [facility] Comment on above: IG% - Immature Granu locytes (promyelocytes, myelocytes and metamyelocytes) > 1% indicates that a LEFT SHIFT is Present. MCV (mean corpuscular volume ) determinationOrdered By: Anshul Lemus on 01-06-2025 MCV (RBC) [Entitic vol] 104.5 fL High 80-94 [facility] Magnesiumon 01-06-2025 Magnesium [Mass/Vol] 1.8 mg/dL Normal 1.5-2.2 [facility] Comment on above: Performed By: #### L 499.0042 #### [facility] [address] [place] [address], [address] Magnesium measurement (mass/ volume)Ordered By: Anshul Lemus on 01-06-2025 Magnesium (Unsp spec) [Mass/Vol] 1.8 mg/dL 1.5-2.2 [facility] Mean corpuscular hemoglobin (MCH) determinationOrdered By: Anshul Lemus on 01-06-2025 MCH (RBC) [Entitic mass] 33.6 pg High 27.0-32.0 [facility] Mean corpuscular hemoglobin concentration (MCHC) determinationOrdered By: Anshul Lemus on 01-06-2025 MCHC (RBC) [Mass/Vol] 32.2 g/dL 32-36 [facility] Mean platelet volume determi nationOrdered By: Anshul Lemus on 01-06-2025 Platelet mean volume (Bld) [Entitic vol] 10.0 fL 6.2-12.0 [facility] Monocyte percentageOrdered B y: Anshul Lemus on 01-06-2025 Monocytes/100 WBC (Bld) 8.9 % 0-10 [facility] Neutrophil percentageOrdered By: Anshul Lemus on 01-06-2025 Neutrophils/100 WBC (Bld) 61.6 % 47-70 [facility] Nucleated red blood cell per centageOrdered By: Anshul Lemus on 01-06-2025 Nucleated RBC/100 WBC (Bld) [Ratio] 0 % 0-5 [facility] Platelet countOrdered By: Farooq Lemus on 01-06-2025 Platelets (Bld) [#/Vol] 219 10*3/uL 150-450 [facility] RBC Auto (Bld) [#/Vol]Ordere d By: Anshul Lemus on 01-06-2025 RBC (Bld) [#/Vol] 3.54 10*6/uL Low 4.6-6.2 [facility] White blood cell (WBC) count Ordered By: Anshul Lemus on 01-06-2025 WBC (Bld) [#/Vol] 6.1 10*3/uL 4.4-11.0 [facility] CBC W/Diff, Automatedon 07- Absolute Lymph 1.62 X10 3/uL Normal 0.83-4.51 [facility] Comment on above: Order Comment: PT RE FUSED X2 NURSE NOTFIED Performed By: #### L 499.0042 #### [facility] [address] [place], [address] Absolute Neut 4.2 X10 3/uL Normal 2.0-7.7 [facility] Comment on above: Order Comment: PT RE FUSED X2 NURSE NOTFIED Performed By: #### L 499.0042 #### [facility] [address] [place], [address] Basophils/100 WBC (Bld) 0.5 % Normal 0-1 [facility] Comment on above: Order Comment: PT RE FUSED X2 NURSE NOTFIED Performed By: #### L 499.0042 #### [facility] [address] [place], [address] Eosinophils/100 WBC (Bld) 0.6 % Normal 0-5 [facility] Comment on above: Order Comment: PT RE FUSED X2 NURSE NOTFIED Performed By: #### L 499.0042 #### [facility] [address] [place], [address] Erythrocyte distribution width (RBC) [Ratio] 15.0 % High 11.6-14.6 [facility] Comment on above: Order Comment: PT RE FUSED X2 NURSE NOTFIED Performed By: #### L 499.0042 #### [facility] [address] [place], [address] Hematocrit (Bld) [Volume fraction] 39.7 % Low 40-54 [facility] Comment on above: Order Comment: PT RE FUSED X2 NURSE NOTFIED Performed By: #### L 499.0042 #### [facility] [address] [place], [address] Hemoglobin (Bld) [Mass/Vol] 12.9 g/dL Low 13.0-16.5 [facility] Comment on above: Order Comment: PT RE FUSED X2 NURSE NOTFIED Performed By: #### L 499.0042 #### [facility] [address] [place], [address] IG% 0.300 Normal 0.0-0.9 [facility] Comment on above: Order Comment: PT RE FUSED X2 NURSE NOTFIED Result Comment: IG% - Immature Granulocytes (promyelocytes, myelocytes and metamyelocytes) > 1% indicates that a LEFT SHIFT is Present. Performed By: #### L 499.0042 #### [facility] [address] [place], [address] Lymphocytes/100 WBC (Bld) 25.5 % Normal 19-41 [facility] Comment on above: Order Comment: PT RE FUSED X2 NURSE NOTFIED Performed By: #### L 499.0042 #### [facility] [address] [place], [address] MCH (RBC) [Entitic mass] 33.3 pg High 27.0-32.0 [facility] Comment on above: Order Comment: PT RE FUSED X2 NURSE NOTFIED Performed By: #### L 499.0042 #### [facility] [address] [place], [address] MCHC (RBC) [Mass/Vol] 32.5 g/dL Normal 32-36 [facility] Comment on above: Order Comment: PT RE FUSED X2 NURSE NOTFIED Performed By: #### L 499.0042 #### [facility] [address] [place], [address] MCV (RBC) [Entitic vol] 102.6 fL High 80-94 [facility] Comment on above: Order Comment: PT RE FUSED X2 NURSE NOTFIED Performed By: #### L 499.0042 #### [facility] [address] [place], [address] Monocytes/100 WBC (Bld) 7.4 % Normal 0-10 [facility] Comment on above: Order Comment: PT RE FUSED X2 NURSE NOTFIED Performed By: #### L 499.0042 #### [facility] [address] [place], [address] Neutrophils/100 WBC (Bld) 65.7 % Normal 47-70 [facility] Comment on above: Order Comment: PT RE FUSED X2 NURSE NOTFIED Performed By: #### L 499.0042 #### [facility] [address] [place], [address] Nucleated RBC (Bld) [#/Vol] 0 10*3/uL Normal 0-5 [facility] Comment on above: Order Comment: PT RE FUSED X2 NURSE NOTFIED Performed By: #### L 499.0042 #### [facility] [address] [place], [address] Platelet mean volume (Bld) [Entitic vol] 10.0 fL Normal 6.2-12.0 [facility] Comment on above: Order Comment: PT RE FUSED X2 NURSE NOTFIED Performed By: #### L 499.0042 #### [facility] [address] [place], [address] Platelets (Bld) [#/Vol] 229 10*3/uL Normal 150-450 [facility] Comment on above: Order Comment: PT RE FUSED X2 NURSE NOTFIED Performed By: #### L 499.0042 #### [facility] [address] [place], [address] RBC (Bld) [#/Vol] 3.87 10*6/uL Low 4.6-6.2 [facility] Comment on above: Order Comment: PT RE FUSED X2 NURSE NOTFIED Performed By: #### L 499.0042 #### [facility] [address] [place], [address] RDW SD 56.2 fl High 35.1-43.9 [facility] Comment on above: Order Comment: PT RE FUSED X2 NURSE NOTFIED Performed By: #### L 499.0042 #### [facility] [address] [place], [address] WBC (Bld) [#/Vol] 6.4 10*3/uL Normal 4.4-11.0 [facility] Comment on above: Order Comment: PT RE FUSED X2 NURSE NOTFIED Performed By: #### L 499.0042 #### [facility] [address] [place], [address] Calculated very low density lipoprotein (VLDL) cholesterol measurementOrdered By: Anshul Lemus on 01-05-2025 Calculated very low density lipoprotein (VLDL) cholesterol measurement 18 mg/dL 5-40 [facility] Comprehensive Metabolic Prof ilon 01-05-2025 Albumin [Mass/Vol] 3.4 g/dL Low 3.5-5.0 [facility] Comment on above: Performed By: #### L 499.0042 #### [facility] [address] [place], [address] Albumin/Globulin [Mass ratio] 1.0 {ratio} Normal 0.9-2.4 [facility] Comment on above: Performed By: #### L 499.0042 #### [facility] [address] [place], [address] ALK PHOS 751 U/L High 40-129 [facility] Comment on above: Performed By: #### L 499.0042 #### [facility] [address] [place], [address] ALT [Catalytic activity/Vol] 22 U/L Normal <=46 [facility] Comment on above: Performed By: #### L 499.0042 #### [facility] [address] [place], [address] AST [Catalytic activity/Vol] 29 U/L Normal <=37 [facility] Comment on above: Performed By: #### L 499.0042 #### [facility] [address] [place], [address] Bilirubin [Mass/Vol] 4.16 mg/dL High 0.00-1.30 [facility] Comment on above: Performed By: #### L 499.0042 #### [facility] [address] [place], [address] BUN/CRE 14.6 RATIO Normal 10-20 [facility] Comment on above: Performed By: #### L 499.0042 #### [facility] [address] [place], [address] Calcium [Mass/Vol] 8.9 mg/dL Normal 7.6-11.0 [facility] Comment on above: Performed By: #### L 499.0042 #### [facility] [address] [place], [address] Chloride [Moles/Vol] 103 mmol/L Normal 98-108 [facility] Comment on above: Performed By: #### L 499.0042 #### [facility] [address] [place], [address] CO2 [Moles/Vol] 25.7 mmol/L Normal 21.0-32.0 [facility] Comment on above: Performed By: #### L 499.0042 #### [facility] [address] [place], [address] Creatinine [Mass/Vol] 2.02 mg/dL High 0.70-1.20 [facility] Comment on above: Performed By: #### L 499.0042 #### [facility] [address] [place], [address] ECRCL 49.31 ml/min Low 50-250 [facility] Comment on above: Performed By: #### L 499.0042 #### [facility] [address] [place], [address] GAP 15 Normal 5-15 [facility] Comment on above: Performed By: #### L 499.0042 #### [facility] [address] [place], [address] GFR/1.73 sq M.predicted among non-blacks MDRD (S/P/Bld) [Vol rate/Area] 40 mL/min/{1.73_m2} Low >60 [facility] Comment on above: Result Comment: mL/m in/1.73m2 CKD-EPI Creatinine Equation (2020) Performed By: #### L 499.0042 #### [facility] [address] [place], [address] Globulin (S) [Mass/Vol] 3.4 g/dL Normal 2.2-4.2 [facility] Comment on above: Performed By: #### L 499.0042 #### [facility] [address] [place], [address] Glucose [Mass/Vol] 124 mg/dL High 70-99 [facility] Comment on above: Performed By: #### L 499.0042 #### [facility] [address] [place], [address] Potassium [Moles/Vol] 3.1 mmol/L Low 3.3-5.1 [facility] Comment on above: Performed By: #### L 499.0042 #### [facility] [address] [place], [address] Sodium [Moles/Vol] 144 mmol/L Normal 133-145 [facility] Comment on above: Performed By: #### L 499.0042 #### [facility] [address] [place], [address] T PROT 6.8 g/dL Normal 5.9-8.4 [facility] Comment on above: Performed By: #### L 499.0042 #### [facility] [address] [place], [address] Urea nitrogen [Mass/Vol] 29 mg/dL High 4-19 [facility] Comment on above: Performed By: #### L 499.0042 #### [facility] [address] [place], [place], [address] International normalized rat io (INR) calculationOrdered By: Anshul Lemus on 01-05-2025 INR Coag (Bld) [Relative time] 1.6 {INR} [facility] LDL calc ser/plasOrdered By: Anshul Lemus on 01-05-2025 Cholesterol in LDL [Mass/Vol] 112 mg/dL [facility] Comment on above: Gerdpahtei=856-618 m g/dL & Higher Jhnc=346 mg/dL or greater Lipid Profileon 01-05-2025 CHOL:HDL 5.48 Normal [facility] Comment on above: Performed By: #### L 499.0042 #### [facility] [address] [place], [address] Cholesterol [Mass/Vol] 159 mg/dL Normal <=200 [facility] Comment on above: Result Comment: Chol esterol level, Desirable <200 mg/dL Borderline high cholesterol 200-239 mg/dL High cholesterol >=240 mg/dL Recommendations of the NCEP Adult Treatment Panel for the following risk-cutoff thresholds for the [place] population. Performed By: #### L 499.0042 #### [facility] [address] [place], [address] Cholesterol in HDL [Mass/Vol] 29 mg/dL Low [facility] Comment on above: Result Comment: [place] Cholesterol Education Program (NCEP) guidelines: <40 mg/dL: Low HDL-cholesterol (major risk factor for CHD) >= 60 mg/dL: High HDL-cholesterol (negative risk factor for CHD) HDL-cholesterol is affected by a number of factors, e.g. smoking, exercise, hormones, sex and age. Performed By: #### L 499.0042 #### [facility] [address] [place], [address] Cholesterol in LDL [Mass/Vol] 112 mg/dL Normal [facility] Comment on above: Result Comment: Bord ghhper=323-502 mg/dL Higher Oflv=401 mg/dL or greater Performed By: #### L 499.0042 #### [facility] [address] [place], [address] Cholesterol in VLDL [Mass/Vol] 18 mg/dL Normal 5-40 [facility] Comment on above: Performed By: #### L 499.0042 #### [facility] [address] [place], [address] Triglyceride [Mass/Vol] 88 mg/dL Normal [facility] Comment on above: Result Comment: The drugs N-Acetylcysteine and Metamizole may falsely depress this assay. Normal range: <150 mg/dL Borderline High: 150-199 mg/dL High: 200-499 mg/dL Very High: >500 mg/dL Performed By: #### L 499.0042 #### [facility] [address] [place], [address] Prothrombin Time w/INRon INR Coag (PPP) [Relative time] 1.6 {INR} Normal [facility] Comment on above: Performed By: #### L 499.0042 #### [facility] [address] [place], [address] PT Coag (PPP) [Time] 19.4 s High 11.7-14.9 [facility] Comment on above: Performed By: #### L 499.0042 #### [facility] [address] [place], [address] Prothrombin timeOrdered By: Anshul Lemus on 01-05-2025 PT Coag (PPP) [Time] 19.4 s High 11.7-14.9 [facility] Screening total cholesterol/ high density lipoprotein (HDL) cholesterol ratioOrdered By: Anshul Lemus on 01-05-2025 Cholesterol.total/Chol esterol in HDL [Mass ratio] 5.48 {ratio} [facility] Serum or plasma cholesterol in HDL measurement (mass/volume)Ordered By: Anshul Lemus on 01-05-2025 Cholesterol in HDL [Mass/Vol] 29 mg/dL Low >40 [facility] Comment on above: National Cholesterol Education Program (NCEP) guidelines:<40 mg/dL: Low HDL-cholesterol (major risk factor for CHD)>= 60 mg/dL: High HDL-cholesterol (negative risk factor for CHD)HDL-cholesterol is affected by a number of factors, e.g. smoking, exercise, hormones, sex and age. Serum or plasma cholesterol measurement (mass/volume)Ordered By: Anshul Lemus on 01-05-2025 Cholesterol [Mass/Vol] 159 mg/dL <201 [facility] Comment on above: Cholesterol level, D esirable <200 mg/dLBorderline high cholesterol 200-239 mg/dLHigh cholesterol >=240 mg/dLRecommendations of the NCEP Adult Treatment Panel for the following risk-cutoff thresholds for the [place] population. Triglycerides measurementOrd ered By: Anshul Lemus on 01-05-2025 Triglyceride [Mass/Vol] 88 mg/dL <199 [facility] Comment on above: The drugs N-Acetylcy steine and Metamizole may falsely depress this assay. Normal range: <150 mg/dLBorderline High: 150-199 mg/dLHigh: 200-499 mg/dLVery High: >500 mg/dL 12 Lead EKGon 01-04-2025 12 Lead EKG [facility] Cardiovascular Services [address] [place] [address] 12 Lead EKG 01/04/25 0734 MR#: [id number] Acct: [id number] Name: CARLO MEDINA Rep #: [id number] : 1980 44 From: Clark Almaraz MD Attending Dr: Dr. Anshul Lemus DO Status: ADM IN Ordering Dr: Deborah Penaloza DO Date: 01/04/25 Location: [facility] Sex: M AA Admitted: 01/04/25 Test Reason [...] Reconfirmed by CLARK ALMARAZ MD ([id number]), editorial cartoonist GRACE KIDD ([id number]) on 01/06/2025 6:44:03 AM Referred By: Confirmed By: CLARK ALMARAZ MD 01/06/25 0644 Date Clark Almaraz MD CC: Dr. Deborah Penaloza DO; Dr. Anshul Lemus DO; No Primary Care Physician Signed Normal [facility] Abdomen Limitedon 01-04-2025 Abdomen Limited [facility] Imaging Services [address] [place] [address] Abdomen Limited MR#: [id number] Acct: [id number] Name: CARLO MEDINA Rep #: [id number] : 1980 M 44 From: Jamal Ford MD PCP: Care Physician,No Primary Status: REG ER Study: Abdomen Limited Date of Exam: 01/04/25 Exam# [id number] Ordering Dr: Deborah Penaloza DO EXAM: US Abdomen Limited, Right Upper Quadrant CLINICAL INDICATION: ELEVATED LIVER ENZYMES AND BILI TECHNIQUE: Real-time ultrasound of the right upper quadrant with image documentation. COMPARISON: No relevant prior studies available. FINDINGS: LIVER: Liver measures up to 15.9 cm. Fatty infiltration of the liver. No intrahepatic bile duct dilation. GALLBLADDER: Negative Melendez's sign was reported by the town clerk. No gallstones. COMMON BILE DUCT: Unremarkable as [...] Fatty infiltration of the liver. Reading Location: [facility] CC: Dr. Deborah Penaloza DO; No Primary Care Physician Associate Chemist: Signed Normal [facility] Absolute lymphocyte countOrd ered By: Deborah Penaloza on 01-04-2025 Lymphocytes Auto (Unsp spec) [#/Vol] 1.88 10*3/uL 0.83-4.51 [facility] Absolute neutrophil countOrd ered By: Deborah Penaloza on 01-04-2025 Neutrophils (Bld) [#/Vol] 3.7 10*3/uL 2.0-7.7 [facility] Anion gap in Serum or Plasma Ordered By: Deborah Penaloza on 01-04-2025 Anion gap [Moles/Vol] 14 mmol/L 5-15 [facility] Automated lymphocyte count a s percentage of total leukocytesOrdered By: Deborah Penaloza on 01-04-2025 Lymphocytes/100 WBC Auto (Unsp spec) 30.6 % - [facility] BUN/creatinine ratioOrdered By: Deborah Penaloza on 01-04-2025 Urea nitrogen/Creatinine [Mass ratio] 14.9 mg/mg 10- [facility] Basic Metabolic Profile (BMP )on 01-04-2025 BUN/CRE 14.9 RATIO Normal - [facility] Comment on above: Performed By: #### L 500.4050 #### [facility] Laboratory [address] [place], [address] Calcium [Mass/Vol] 9.0 mg/dL Normal 7.6-11.0 [facility] Comment on above: Performed By: #### L 500.4050 #### [facility] Laboratory [address] [place], [address] Chloride [Moles/Vol] 105 mmol/L Normal 98-108 [facility] Comment on above: Performed By: #### L 500.4050 #### [facility] Laboratory [address] [place], [address] CO2 [Moles/Vol] 25.2 mmol/L Normal 21.0-32.0 [facility] Comment on above: Performed By: #### L 500.4050 #### [facility] Laboratory [address] [place], [address] Creatinine [Mass/Vol] 2.03 mg/dL High 0.70-1.20 [facility] Comment on above: Performed By: #### L 500.4050 #### [facility] Laboratory [address] [place], [address] ECRCL 51.39 ml/min Normal 50-250 [facility] Comment on above: Performed By: #### L 500.4050 #### [facility] Laboratory [address] [place], [address] GAP 14 Normal 5-15 [facility] Comment on above: Performed By: #### L 500.4050 #### [facility] Laboratory [address] [place], [address] GFR/1.73 sq M.predicted among non-blacks MDRD (S/P/Bld) [Vol rate/Area] 40 mL/min/{1.73_m2} Low >60 [facility] Comment on above: Result Comment: mL/m in/1.73m2 CKD-EPI Creatinine Equation (2020) Performed By: #### L 500.4050 #### [facility] Laboratory [address] [place], [address] Glucose [Mass/Vol] 97 mg/dL Normal 70-99 [facility] Comment on above: Performed By: #### L 500.4050 #### [facility] Laboratory [address] [place], [address] Potassium [Moles/Vol] 3.7 mmol/L Normal 3.3-5.1 [facility] Comment on above: Performed By: #### L 500.4050 #### [facility] Laboratory [address] [place], [address] Sodium [Moles/Vol] 144 mmol/L Normal 133-145 [facility] Comment on above: Performed By: #### L 500.4050 #### [facility] Laboratory [address] [place], [address] Urea nitrogen [Mass/Vol] 30 mg/dL High 4-19 [facility] Comment on above: Performed By: #### L 500.4050 #### [facility] Laboratory [address] [place], [address] Basophil percentageOrdered B y: Deborah Penaloza on 01-04-2025 Basophils/100 WBC (Bld) 0.3 % 0-1 [facility] Bilirubin directOrdered By: Deborah Penaloza on 07-08-2025 Bilirubin.direct [Mass/Vol] 2.68 mg/dL High 0.00-0.30 [facility] Bilirubin, totalOrdered By: Deborah Penaloza on 01-04-2025 Bilirubin [Mass/Vol] 4.32 mg/dL High 0.00-1.30 [facility] CBC W/Diff, Automatedon Absolute Lymph 1.88 X10 3/uL Normal 0.83-4.51 [facility] Comment on above: Performed By: #### L 500.4050 #### [facility] Laboratory [address] [place], [address] Absolute Neut 3.7 X10 3/uL Normal 2.0-7.7 [facility] Comment on above: Performed By: #### L 500.4050 #### [facility] Laboratory [address] [place], [address] Basophils/100 WBC (Bld) 0.3 % Normal 0-1 [facility] Comment on above: Performed By: #### L 500.4050 #### [facility] Laboratory [address] [place], [address] Eosinophils/100 WBC (Bld) 0.3 % Normal 0-5 [facility] Comment on above: Performed By: #### L 500.4050 #### [facility] Laboratory [address] [place], [address] Erythrocyte distribution width (RBC) [Ratio] 15.0 % High 11.6-14.6 [facility] Comment on above: Performed By: #### L 500.4050 #### [facility] Laboratory [address] [place], [address] Hematocrit (Bld) [Volume fraction] 40.6 % Normal 40-54 [facility] Comment on above: Performed By: #### L 500.4050 #### [facility] Laboratory [address] [place], [address] Hemoglobin (Bld) [Mass/Vol] 12.9 g/dL Low 13.0-16.5 [facility] Comment on above: Performed By: #### L 500.4050 #### [facility] Laboratory [address] [place], [address] IG% 0.200 Normal 0.0-0.9 [facility] Comment on above: Result Comment: IG% - Immature Granulocytes (promyelocytes, myelocytes and metamyelocytes) > 1% indicates that a LEFT SHIFT is Present. Performed By: #### L 500.4050 #### [facility] Laboratory [address] [place], [address] Lymphocytes/100 WBC (Bld) 30.6 % Normal 19-41 [facility] Comment on above: Performed By: #### L 500.4050 #### [facility] Laboratory [address] [place], [address] MCH (RBC) [Entitic mass] 33.1 pg High 27.0-32.0 [facility] Comment on above: Performed By: #### L 500.4050 #### [facility] Laboratory [address] [place], [address] MCHC (RBC) [Mass/Vol] 31.8 g/dL Low 32-36 [facility] Comment on above: Performed By: #### L 500.4050 #### [facility] Laboratory [address] [place], [address] MCV (RBC) [Entitic vol] 104.1 fL High 80-94 [facility] Comment on above: Performed By: #### L [id number] #### [facility] Laboratory [address] [place], [address] Monocytes/100 WBC (Bld) 9.1 % Normal 0-10 [facility] Comment on above: Performed By: #### L 500.4050 #### [facility] Laboratory [address] [place], [address] Neutrophils/100 WBC (Bld) 59.5 % Normal 47-70 [facility] Comment on above: Performed By: #### L 500.4050 #### [facility] Laboratory [address] [place], [address] Nucleated RBC (Bld) [#/Vol] 0.3 10*3/uL Normal 0-5 [facility] Comment on above: Performed By: #### L 500.4050 #### [facility] Laboratory [address] [place], [address] Platelet mean volume (Bld) [Entitic vol] 10.4 fL Normal 6.2-12.0 [facility] Comment on above: Performed By: #### L 500.4050 #### [facility] Laboratory [address] [place], [address] Platelets (Bld) [#/Vol] 219 10*3/uL Normal 150-450 [facility] Comment on above: Performed By: #### L 500.4050 #### [facility] Laboratory [address] [place], [address] RBC (Bld) [#/Vol] 3.90 10*6/uL Low 4.6-6.2 [facility] Comment on above: Performed By: #### L 500.4050 #### [facility] Laboratory [address] [place], [address] RDW SD 57.5 fl High 35.1-43.9 [facility] Comment on above: Performed By: #### L 500.4050 #### [facility] Laboratory [address] [place], [address] WBC (Bld) [#/Vol] 6.2 10*3/uL Normal 4.4-11.0 [facility] Comment on above: Performed By: #### L 500.4050 #### [facility] Laboratory [address] [place], [place], [address] Carbon dioxide, total [Moles /volume] in Central venous bloodOrdered By: Deborah Penaloza on 01-04-2025 CO2 [Moles/Vol] 25.2 mmol/L 21.0-32.0 [facility] Chest PA and Lateralon 01-04 Chest PA and Lateral [facility] Imaging Services [address] [place] [address] Chest PA and Lateral MR#: [id number] Acct: [id number] Name: CARLO MEDINA Rep #: [id number] : 1980 M 44 From: Jamal Ford MD PCP: Care Physician,No Primary Status: REG ER Study: Chest PA and Lateral Date of Exam: 01/04/25 Exam# [id number] Ordering Dr: Deborah Penaloza DO EXAM: XR Chest, 2 Views CLINICAL INDICATION: SOB TECHNIQUE: Frontal and lateral views of the chest. COMPARISON: No relevant prior studies available. FINDINGS: LUNGS AND PLEURAL SPACES: Bibasilar atelectasis or pneumonia. No pneumothorax. HEART: Unremarkable. No cardiomegaly. MEDIASTINUM: Unremarkable. Normal mediastinal contour. BONES/JOINTS: Unremarkable. No acute fracture. RAD/Chest PA and Lateral IMPRESSION: Bibasilar atelectasis or pneumonia. [facility] CC: Dr. Deborah Penaloza DO; No Primary Care Physician Associate Chemist: Signed Normal [facility] Chloride assayOrdered By: Jacob Penaloza on 01-04-2025 Chloride [Moles/Vol] 105 mmol/L 98-108 [facility] Echo Complete W/ Contraston 01-04-2025 Echo Complete W/ Contrast [facility] Cardiovascular Services [address] [place] [address] Echo Complete W/ Contrast 01/04/25 1507 MR#: [id number] Acct: [id number] Name: CARLO MEDINA Pedro Rep #: [id number] : 1980 44 From: Clark Almaraz MD Attending Dr: Dr. Anshul Lemus DO Status: ADM IN Ordering Dr: Anshul Lemus DO Date: 01/04/25 Location: [facility] Sex: M AA Admitted: 01/04/25 Reason For [...] Date Clark Almaraz MD CC: Dr. Anshul Lemus, DO; No Primary Care Physician Date Dictated: 01/04/251506 Date Transcribed: 01/04/251843 Associate Chemist: Signed Normal [facility] Echocardiogram study reportO rdered By: Clark Almaraz on 01-04-2025 Study report [facility] Cardiovascular Services [address] [place] [address] Echo Complete W/ Contrast 01/04/251506 MR#: [id number] Acct: [id number] Name: CARLO MEDINA Rep #:[id number] : 1980 44 From: Clark Torrez Attending Dr: Dr. Anshul Lemus, Status: ADM IN Ordering Dr: Anshul Lemus DO Date: Location: [facility] Sex: M AA Admitted: 01/04/25 Reason For [...] Ordering Physician: Anshul Lemus Performed By: Amrita Vail, [facility] 01/04/251843 Date _ Clark Almaraz MD CC: Dr. Anshul Lemus DO; No Primary Care Physician ~ Date Dictated: 01/04/25 1507 Date Transcribed: 01/04/251843 Associate Chemist: Signed [facility] Work Phone: Emergency Department Summary on 01-04-2025 Emergency Department Summary [facility] Medical Records Department [address] [place] [address] Emergency Department Summary 01/04/25 MR#: [id number] Acct: [id number] Name: CARLO MEDINA Rep #: [id number] : 1980 44 From: Deborah Penaloza DO PCP: Care Physician,No Primary Status:ADM IN Location: [place] [address] HPI History of Present Illness Chief Complaint: [...] states he normally receives his care through [facility] because of his insurance but has had a hard time following up and getting to appointments because of transportation and the distance. States he has been compliant with his medications. Is in the process of trying to establish down here in [place]. Denies any chest pain. Denies any fever or chills. Denies any change in urination. Patient does not know what triggered his fluid overload. Note from inpatient encounter at [facility] on 10/26/2024 she is at [...] discharged home . Reported ejection fraction 15%. [facility] Medical History (Updated 01/04/25 @ 16:15 [...] Nasal Cannula (more content not included)... Normal [facility] Eosinophil percentageOrdered By: Deborah Penaloza on 01-04-2025 Eosinophils/100 WBC (Bld) 0.3 % 0-5 [facility] Erythrocyte distribution wid th ratioOrdered By: Deborah Penaloza on 01-04-2025 Erythrocyte distribution width (RBC) [Ratio] 15.0 % High 11.6-14.6 [facility] Erythrocyte distribution wid th standard deviationOrdered By: Deborah Penaloza on 01-04-2025 Erythrocyte distribution width (RBC) [Ratio] 57.5 fl High 35.1-43.9 [facility] Glomerular filtration rate ( GFR) estimation/1.73 sq m using serum, plasma, or whole bOrdered By: Deborah Penaloza on 01-04-2025 GFR/1.73 sq M.predicted among non-blacks MDRD (S/P/Bld) [Vol rate/Area] 40 mL/min/{1.73_m2} Low >60 [facility] Comment on above: mL/min/1.73m2 CKD-EP I Creatinine Equation (2020) H AND P Exam - [facility] 01-04-2025 H&P Exam - Hospitalist [facility] Medical Records Department [address] [place] [address] H P Exam - Hospitalist 01/04/25 1351 MR#: [id number] Acct: [id number] Name: CARLO MEDINA Rep #: [id number] : 1980 44 From: Anshul Lemus DO PCP: Care Physician,No Primary Status:ADM IN Location: [place] [address] HPI - General General Date of Service: [...] over at [facility] and recently was over at [facility] in September. It is documented throughout his charts at [facility] as well as [facility] that he has a history of [...] time to think about it. [facility] Medical History (Updated 01/04/25 @ 14:[address] Anshul Lemus, ) CKD (chronic kidney disease) Cardiomyopathy Left bundle [...] Mean 8 (more content not included)... Normal [facility] Hematocrit Auto (Bld) [Volum e fraction]Ordered By: Deborah Penaloza on 01-04-2025 Hematocrit (Bld) [Volume fraction] 40.6 % 40-54 [facility] Hemoglobin measurementOrdere d By: Deborah Penaloza on 01-04-2025 Hemoglobin (Bld) [Mass/Vol] 12.9 g/dL Low 13.0-16.5 [facility] Immature granulocytes/100 WB C Auto (Bld)Ordered By: Deborah Penaloza on 01-04-2025 Immature granulocytes/100 WBC (Bld) 0.200 % 0.0-0.9 [facility] Comment on above: IG% - Immature Granu locytes (promyelocytes, myelocytes and metamyelocytes) > 1% indicates that a LEFT SHIFT is Present. L499.0042on 01-04-2025 Trop T High Sen 42 ng/L High <=22 [facility] Comment on above: Performed By: #### L 499.0042 #### [facility] Laboratory [address] [place], [address] L499.0043on 01-04-2025 Trop T High Sen 45 ng/L High <=22 [facility] Comment on above: Performed By: #### L 500.4050, L100.0100 #### [facility] Laboratory [address] [place], [address] L501.4021on 01-04-2025 Trop T High Sen 45 ng/L High <=22 [facility] Comment on above: Performed By: #### L 501.4021 #### [facility] Laboratory [address] [place], [address] L503.7505on 01-04-2025 Natriuretic peptide B (Bld) [Mass/Vol] 01790 pg/mL High <=450 [facility] Comment on above: Result Comment: Hear t Failure Unlikely: < 300 pg/mL Heart Failure Likely < 50 Years: > 450 pg/mL 50-75 Years: > 900 pg/mL >75 Years: > 1800 pg/mL Performed By: #### L 500.4050 #### [facility] Laboratory [address] [place], [address] Laboratory - Chemistry and C hemistry - challengeOrdered By: Deborah Penaloza on 01-04-2025 AST [Catalytic activity/Vol] 28 U/L <38 [facility] Lipaseon 01-04-2025 Lipase [Catalytic activity/Vol] 15 U/L Normal 13-75 [facility] Comment on above: Result Comment: Jt savage note: LIPASE revised reference range effective 22. New Lipase methodology. Expected to produce lower values than the previous assay method. NEW Reference Range: 13 - 75 U/L Performed By: #### L 500.4050 #### [facility] Laboratory [address] [place], [address] Lipase measurementOrdered By : Deborah Penaloza on 01-04-2025 Lipase [Catalytic activity/Vol] 15 U/L 13-75 [facility] Comment on above: Please note:LIPASE r evised reference range effective 22. New Lipase methodology. Expected to produce lower values than the previous assay method. NEW Reference Range: 13 - 75 U/L Liver Profileon 01-04-2025 Albumin [Mass/Vol] 3.6 g/dL Normal 3.5-5.0 [facility] Comment on above: Performed By: #### L 500.4050 #### [facility] Laboratory [address] [place], [address] ALK PHOS 743 U/L High 40-129 [facility] Comment on above: Performed By: #### L 500.4050 #### [facility] Laboratory [address] [place], [address] ALT [Catalytic activity/Vol] 22 U/L Normal <=46 [facility] Comment on above: Performed By: #### L 500.4050 #### [facility] Laboratory [address] [place], [address] AST [Catalytic activity/Vol] 28 U/L Normal <=37 [facility] Comment on above: Performed By: #### L 500.4050 #### [facility] Laboratory [address] [place], [address] Bilirubin [Mass/Vol] 4.32 mg/dL High 0.00-1.30 [facility] Comment on above: Performed By: #### L 500.4050 #### [facility] Laboratory [address] [place], [place], [address] Bilirubin.direct [Mass/Vol] 2.68 mg/dL High 0.00-0.30 [facility] Comment on above: Performed By: #### L 500.4050 #### [facility] Laboratory [address] [place], [address] Globulin (S) [Mass/Vol] 3.2 g/dL Normal 2.2-4.2 [facility] Comment on above: Performed By: #### L 500.4050 #### [facility] Laboratory [address] [place], [address] T PROT 6.8 g/dL Normal 5.9-8.4 [facility] Comment on above: Performed By: #### L 500.4050 #### [facility] Laboratory [address] [place], [address] MCV (mean corpuscular volume ) determinationOrdered By: Deborah Penaloza on 01-04-2025 MCV (RBC) [Entitic vol] 104.1 fL High 80-94 [facility] Mean corpuscular hemoglobin (MCH) determinationOrdered By: Deborah Penaloza on 01-04-2025 MCH (RBC) [Entitic mass] 33.1 pg High 27.0-32.0 [facility] Mean corpuscular hemoglobin concentration (MCHC) determinationOrdered By: Deborah Penaloza on 01-04-2025 MCHC (RBC) [Mass/Vol] 31.8 g/dL Low 32-36 [facility] Mean platelet volume determi nationOrdered By: Deborah Penaloza on 01-04-2025 Platelet mean volume (Bld) [Entitic vol] 10.4 fL 6.2-12.0 [facility] Monocyte percentageOrdered B y: Deborah Penaloza on 01-04-2025 Monocytes/100 WBC (Bld) 9.1 % 0-10 [facility] Natriuretic peptide.B prohor justin N-Terminal [Mass/volume] in Serum or PlasmaOrdered By: Deborah Penaloza on 01-04-2025 Natriuretic peptide.B prohormone N-Terminal [Mass/Vol] 46176 pg/mL High <450 [facility] Comment on above: Heart Failure Unlike ly: < 300 pg/mLHeart Failure Likely< 50 Years: > 450 pg/mL50-75 Years: > 900 pg/mL>75 Years: > 1800 pg/mL Neutrophil percentageOrdered By: Deborah Penaloza on 01-04-2025 Neutrophils/100 WBC (Bld) 59.5 % 47-70 [facility] Nucleated red blood cell per centageOrdered By: Deborah Penaloza on 01-04-2025 Nucleated RBC/100 WBC (Bld) [Ratio] 0.3 % 0-5 [facility] Platelet countOrdered By: Jacob Penaloza on 01-04-2025 Platelets (Bld) [#/Vol] 219 10*3/uL 150-450 [facility] Potassium measurement (mass/ volume)Ordered By: Deborah Penaloza on 01-04-2025 Potassium (Unsp spec) [Mass/Vol] 3.7 mmol/L 3.3-5.1 [facility] RBC Auto (Bld) [#/Vol]Ordere d By: Deborah Penaloza on 01-04-2025 RBC (Bld) [#/Vol] 3.90 10*6/uL Low 4.6-6.2 [facility] Serum creatinine measurement (mass/volume)Ordered By: Deborah Penaloza on 01-04-2025 Creatinine [Mass/Vol] 2.03 mg/dL High 0.70-1.20 [facility] Serum globulin measurementOr dered By: Deborah Penaloza on 01-04-2025 Globulin (S) [Mass/Vol] 3.2 g/dL 2.2-4.2 [facility] Serum glucose measurement (m ass/volume)Ordered By: Deborah Penaloza on 01-04-2025 Glucose [Mass/Vol] 97 mg/dL 70-99 [facility] Serum or plasma alanine de paz otransferase (ALT) measurementOrdered By: Deborah Penaloza on 01-04-2025 ALT [Catalytic activity/Vol] 22 U/L <47 [facility] Serum or plasma albumin fidel urement (mass/volume)Ordered By: Deborah Penaloza on 01-04-2025 Albumin [Mass/Vol] 3.6 g/dL 3.5-5.0 [facility] Serum or plasma alkaline nick sphatase measurementOrdered By: Deborah Penaloza on 01-04-2025 ALP [Catalytic activity/Vol] 743 U/L High 40-129 [facility] Serum or plasma calcium fidel urement (mass/volume)Ordered By: Deborah Penaloza on 01-04-2025 Calcium [Mass/Vol] 9.0 mg/dL 7.6-11.0 [facility] Serum or plasma urea nitroge n measurement (mass/volume)Ordered By: Deborah Penaloza on 01-04-2025 Urea nitrogen [Mass/Vol] 30 mg/dL High 4-19 [facility] Sodium levelOrdered By: Russell Penaloza on 01-04-2025 Sodium [Moles/Vol] 144 mmol/L 133-145 [facility] Total proteinOrdered By: Janette Penaloza on 01-04-2025 Protein [Mass/Vol] 6.8 g/dL 5.9-8.4 [facility] Troponin T.cardiac [Mass/vol ume] in Serum or Plasma by High sensitivity methodOrdered By: Deborah Penaloza on 01-04-2025 Troponin T.cardiac High sensitivity method [Mass/Vol] 45 ng/L High <22 [facility] Troponin T.cardiac High sensitivity method [Mass/Vol] 42 ng/L High <22 [facility] Troponin T.cardiac High sensitivity method [Mass/Vol] 45 ng/L High <22 [facility] White blood cell (WBC) count Ordered By: Deborah Penaloza on 01-04-2025 WBC (Bld) [#/Vol] 6.2 10*3/uL 4.4-11.0 [facility] Telephone Encounteron 2024 Emission Specialist Authentication Interface Message Text Last visit with PCP (YUVAL GAYLE) was 09/17/2024 No future appointment with PCP (YUVAL GAYLE) Thank you. Normal [facility] Telephone Encounteron 2024 Emission Specialist Authentication Interface Message Text Normal [facility] Emission Specialist Authentication Interface Message Text Requested Prescriptions Pending Prescriptions Disp Refills Apixaban (ELIQUIS) 5 MG tablet 28 Tablet 0 Sig: Take 1 Tablet by mouth 2 times daily. Last visit with PCP (YUVAL GAYLE) was 09/17/2024 No future appointment with PCP (YUVAL GAYLE) Normal [facility] Telephone Encounteron 2024 Emission Specialist Authentication Interface Message Text No response letter printed and mailed to patient Normal [facility] Telephone Encounteron 2024 Emission Specialist Authentication Interface Message Text Normal [facility] Telephone Encounteron 2024 Emission Specialist Authentication Interface Message Text Normal [facility] Telephone Encounteron 2024 Emission Specialist Authentication Interface Message Text Normal [facility] Telephone Encounteron 2024 Emission Specialist Authentication Interface Message Text Normal [facility] Telephone Encounteron 2024 Emission Specialist Authentication Interface Message Text Normal [facility] Progress Noteson 10-26-2024 Emission Specialist Authentication Interface Message Text Normal [facility] Emission Specialist Authentication Interface Message Text Discharge instructions reviewed with patient and significant other at bedside. This RN stressed importance of medication compliance and adherence to medication regimen. Significant other verbalized understanding, pt silent but nodded head. Normal [facility] Emission Specialist Authentication Interface Message Text Normal [facility] Emission Specialist Authentication Interface Message Text Pt currently refusing all due medications d/t c/o feeling nauseated. This RN offered reaching out to provider for antiemetic. Pt declines. Pt instructed to let this RN know when he feels ready to take PO medications, pt agrees. Will follow up. Normal [facility] Assessment AND Plan Noteon 0 10-25-2024 Emission Specialist Authentication Interface Message Text Max creatinine this stay 3.2, down trending to 1.46 which appears to be better than baseline - avoid nephrotoxic agents - repeat bmp as patient will allow Normal [facility] Emission Specialist Authentication Interface Message Text No leukocytosis, afebrile, stable on room air, procal elevated to 16.8 on admission Given recent hospitalization, treating for HAP - completed course of linezolid and cipro today 10/24 Normal [facility] Emission Specialist Authentication Interface Message Text - apixaban 5 mg po bid Normal [facility] Emission Specialist Authentication Interface Message Text Level 3.2 10/21 - he declined potassium PO and IV - BMP as patient will allow Normal [facility] Emission Specialist Authentication Interface Message Text Level 1.5 10/21 - only agreeable to mag oxide - repeat level in am Normal [facility] Emission Specialist Authentication Interface Message Text With hyperbili - liver clinic as an outpatient - HFP when patient willing Normal [facility] Emission Specialist Authentication Interface Message Text Normal [facility] BASIC METABOLIC PANELon 04-2 Anion gap [Moles/Vol] 20 mmol/L Normal 10-20 [facility] Comment on above: Performed By: #### Kelly Simon, HEPATIC, MG ####[facility] [id number] [place], Calcium [Mass/Vol] 7.7 mg/dL Low 8.6-10.3 [facility] Comment on above: Performed By: #### Kelly Simon, HEPATIC, MG ####[facility] [id number] [place], Chloride [Moles/Vol] 88 mmol/L Low 98-107 [facility] Comment on above: Performed By: #### Kelly Simon, HEPATIC, MG ####[facility] [id number] [place], CO2 [Moles/Vol] 30 mmol/L Normal 21-31 [facility] Comment on above: Performed By: #### Kelly HGissel, HEPATIC, MG ####[facility] [id number] [place], Creatinine [Mass/Vol] 2.15 mg/dL High 0.70-1.30 [facility] Comment on above: Performed By: #### Kelly HGissel, HEPATIC, MG ####[facility] [id number] [place], ESTIMATED GFR (CKD-EPI) 38 mL/min/1.73sqm Low >=60 [facility] Comment on above: Result Comment: 2020 [...] Inclusion of Race in Diagnosing Kidney Disease. [place] Journal of Kidney Diseases 202;79(2):268-88.e1.2. N Engl J Med 1 Vol. 385 Issue 19 Pages 8566-0815 Performed By: #### Kelly Simon, HEPATIC, MG ####[facility] [id number] [place], Glucose [Mass/Vol] 130 mg/dL High 74-109 [facility] Comment on above: Performed By: #### Kelly Simon, HEPATIC, MG ####[facility] [id number] [place], Potassium [Moles/Vol] 4.0 mmol/L Normal 3.5-5.0 [facility] Comment on above: Performed By: #### Kelly Simon, HEPATIC, MG ####[facility] [id number] [place], Sodium [Moles/Vol] 134 mmol/L Low 136-145 [facility] Comment on above: Performed By: #### Kelly Simon, HEPATIC, MG ####[facility] [id number] [place], Urea nitrogen [Mass/Vol] 60 mg/dL High 7-25 [facility] Comment on above: Performed By: #### Kelly Simon, HEPATIC, MG ####[facility] [id number] [place], Basic metabolic 2000 panelon 10-25-2024 Anion [...] Inclusion of Race in Diagnosing Kidney Disease. [place] Journal of Kidney Diseases 2021;79(2):268-88.e1. 2. N Engl J Med 2020 Vol. 385 Issue 19 Pages [phone] Glucose [Mass/Vol] 130 mg/dL High 74 - [...] (Bld) [#/Vol] 0.07 10*3/uL Normal 0.00-0.20 [facility] Comment on above: Performed By: #### C BCDSAT ####S PATHOLOGY [id number] [place], Basophils/100 WBC (Bld) 0.5 % Normal <=1.9 [facility] Comment on above: Performed By: #### C BCDSAT ####S PATHOLOGY [id number] [place], Eosinophils (Bld) [#/Vol] 0.02 10*3/uL Normal 0.00-0.70 [facility] Comment on above: Performed By: #### C BCDSAT ####[facility] [id number] [place], Eosinophils/100 WBC (Bld) 0.1 % Normal 0.1-4.0 [facility] Comment on above: Performed By: #### C BCDSAT ####[facility] [id number] [place], Erythrocyte distribution width (RBC) [Ratio] 16.9 % High 11.5-14.5 [facility] Comment on above: Performed By: #### C BCDSAT ####[facility] [id number] [place], Hematocrit (Bld) [Volume fraction] 36.8 % Low 41.0-53.0 [facility] Comment on above: Performed By: #### C BCDSAT ####[facility] [id number] [place], Hemoglobin (Bld) [Mass/Vol] 12.3 g/dL Low 13.9-16.3 [facility] Comment on above: Performed By: #### C BCDSAT ####[facility] [id number] [place], Lymphocytes (Bld) [#/Vol] 1.95 10*3/uL Normal 1.00-4.80 [facility] Comment on above: Performed By: #### C BCDSAT ####[facility] [id number] [place], Lymphocytes/100 WBC (Bld) 13.8 % Low 24.0-44.0 [facility] Comment on above: Performed By: #### C BCDSAT ####[facility] [id number] [place], MCH (RBC) [Entitic mass] 34.9 pg High 26.0-34.0 [facility] Comment on above: Performed By: #### C BCDSAT ####[facility] [id number] [place], MCHC (RBC) [Mass/Vol] 33.5 g/dL Normal 32.0-35.9 [facility] Comment on above: Performed By: #### C BCDSAT ####S PATHOLOGY [id number] [place], MCV (RBC) [Entitic vol] 104 fL High 80-100 [facility] Comment on above: Performed By: #### C BCDSAT ####[facility] [id number] [place], Monocytes (Bld) [#/Vol] 1.04 10*3/uL High 0.20-1.00 [facility] Comment on above: Performed By: #### C BCDSAT ####[facility] [id number] [place], Monocytes/100 WBC (Bld) 7.3 % Normal 2.0-11.0 [facility] Comment on above: Performed By: #### C BCDSAT ####[facility] PATHOLOG[facility] [id number] [place] [address], Neutrophils (Bld) [#/Vol] 11.07 10*3/uL High 1.50-8.00 [facility] Comment on above: Performed By: #### C BCDSAT ####[facility] PATH[facility] [id number] [place] [address], Neutrophils/100 WBC (Bld) 78.2 % High 31.0-76.0 [facility] Comment on above: Performed By: #### C BCDSAT ####S PATHOLOGY [id number] [place], Platelet mean volume (Bld) [Entitic vol] 9.2 fL Normal 7.5-11.2 [facility] Comment on above: Performed By: #### C BCDSAT ####S PATHOLOGY [id number] [place], Platelets (Bld) [#/Vol] 226 10*3/uL Normal 150-400 [facility] Comment on above: Performed By: #### C BCDSAT ####S PATHOLOGY [id number] [place], RBC (Bld) [#/Vol] 3.54 10*6/uL Low 4.50-5.90 [facility] Comment on above: Performed By: #### Kelly HERNANDEZAT ####[facility] [id number] [place], WBC (Bld) [#/Vol] 14.1 10*3/uL High 4.5-11.5 [facility] Comment on above: Performed By: #### Kelly HERNANDEZAT ####[facility] [id number] [place], Consultson 10-25-2024 Emission Specialist Authentication Interface Message Text Normal [facility] Emission Specialist Authentication Interface Message Text Normal [facility] HEPATIC FUNCTION PANELon Albumin [Mass/Vol] 3.1 [...] Albumin [Mass/Vol] 3.1 g/dL Low 3.5-5.7 [facility] Comment on above: Performed By: #### Kelly Simon, HEPATIC, MG ####S PATHOLOGY [id number] [place], ALK 393 IU/L High 34-104 [facility] Comment on above: Performed By: #### Kelly Simon, HEPATIC, MG ####S PATHOLOGY [id number] [place], ALT [Catalytic activity/Vol] 54 U/L High 7-52 [facility] Comment on above: Performed By: ###Gonzalez Simon, HEPATIC, MG ####S PATHOLOGY [id number] [place], AST [Catalytic activity/Vol] 48 U/L High 13-39 [facility] Comment on above: Performed By: #### Kelly Simon, HEPATIC, MG ####[facility] [id number] [place], Bilirubin [Mass/Vol] 7.3 mg/dL High 0.3-1.0 [facility] Comment on above: Performed By: #### Kelly Simon, HEPATIC, MG ####[facility] [id number] [place], Bilirubin.direct [Mass/Vol] 3.77 mg/dL High 0.03-0.18 [facility] Comment on above: Performed By: #### Kelly Simon, HEPATIC, MG ####S PATHOLOGY [id number] [place], Protein [Mass/Vol] 6.0 g/dL Normal 6.0-8.3 [facility] Comment on above: Performed By: #### Kelly Simon, HEPATIC, MG ####[facility] PATH[facility] [id number] [place], MAGNESIUMon 10-25-2024 Interpretation and review of laboratory results Normal [facility] Magnesium [Mass/Vol] 2.1 mg/dL 1.9 - 2 .7 mg/dL [facility] Magnesium [Mass/Vol] 2.1 mg/dL Normal 1.9-2.7 [facility] Comment on above: Performed By: #### Kelly Simon, HEPATIC, MG ####[facility] [id number] [place], No Panel Informationon 10-25 Interpretation and review of laboratory results Abnormal [facility] Progress Noteson 10-25-2024 Emission Specialist Authentication Interface Message Text Normal [facility] Emission Specialist Authentication Interface Message Text Normal [facility] Emission Specialist Authentication Interface Message Text Normal [facility] XR CHEST AP OR PA 1 VIEWon 0 10-25-2024 XR CHEST AP OR PA 1 VIEW Normal [facility] Chest Single viewon 10-25 EXAMINATION: XR CHES T AP OR PA 1 VIEW 10/25/2024 04:22 PM CLINICAL HISTORY: Leukocytosis ASSOCIATED DIAGNOSIS: Leukocytosis ORDERING PROVIDER: ANSHUL LAIRD TECHNGAVIN NOTE: COMPARISON: XR CHEST AP OR [...] Leukocytosis ASSOCIATED DIAGNOSIS: Leukocytosis ORDERING PROVIDER: ANSHUL LAIRD TECHNGAVIN NOTE: COMPARISON: XR CHEST AP OR [...] at the left lung apex. MACRO: None [facility] Study observation (narrative) [facility] XR Chest Single viewOrdered By: Rosario William on 10-25-2024 [facility] Phone: Assessment AND Plan Noteon 0 10-24-2024 Emission Specialist Authentication Interface Message Text With [facility] liver [facility] as an outpatient - [facility] when patient willing Normal [facility] Emission Specialist Authentication Interface Message Text Max creatinine this stay 3.2, down trending to 1.46 which appears to be better than baseline - avoid nephrotoxic agents - repeat bmp as patient will allow Normal [facility] Emission Specialist Authentication Interface Message Text Normal [facility] Emission Specialist Authentication Interface Message Text - apixaban 5 mg po bid Normal [facility] Emission Specialist Authentication Interface Message Text Level 3.2 10/21 - he declined potassium PO and IV again today - BMP in am Normal [facility] Emission Specialist Authentication Interface Message Text Level 1.5 10/21 - only agreeable to mag oxide - repeat level in am Normal [facility] Emission Specialist Authentication Interface Message Text No leukocytosis, afebrile, stable on room air, procal elevated to 16.8 on admission Given recent hospitalization, treating for HAP - complete course of linezolid and cipro today () Normal [facility] Progress Noteson 10-24-2024 Emission Specialist Authentication Interface Message Text Normal [facility] Assessment AND Plan Noteon 0 10-23-2024 Emission Specialist Authentication Interface Message Text Level 3.2 10/21 - he declined potassium PO and IV again today - BMP in am Normal [facility] Emission Specialist Authentication Interface Message Text With hyperbili - liver clinic as an outpatient - HFP when patient willing Normal [facility] Emission Specialist Authentication Interface Message Text Level 1.5 10/21 - only agreeable to mag oxide - repeat level in am Normal [facility] Emission Specialist Authentication Interface Message Text - apixaban 5 mg po bid Normal [facility] Emission Specialist Authentication Interface Message Text Normal [facility] Emission Specialist Authentication Interface Message Text No leukocytosis, afebrile, stable on room air, procal elevated to 16.8 on admission Given recent hospitalization, treating for HAP - complete course of linezolid and cipro today () Normal [facility] Emission Specialist Authentication Interface Message Text Max creatinine this stay 3.2, down trending to 1.46 which appears to be better than baseline - avoid nephrotoxic agents - repeat bmp as patient will allow Normal [facility] Progress Noteson 10-23-2024 Emission Specialist Authentication Interface Message Text Normal [facility] Emission Specialist Authentication Interface Message Text Normal [facility] Emission Specialist Authentication Interface Message Text Normal [facility] Assessment AND Plan Noteon 0 10-22-2024 Emission Specialist Authentication Interface Message Text With hyperbili - liver clinic as an outpatient - HFP when patient willing Normal [facility] Emission Specialist Authentication Interface Message Text Echo with LVEF 15% - Bumex 1 mg daily - will restart today - isordil 20 mg tid - patient refusing - patient declining further medication titration - monitor on tele if agreeable - follow up with heart failure as an outpatient - continue GOC discussions Normal [facility] Emission Specialist Authentication Interface Message Text No leukocytosis, afebrile, stable on room air, procal elevated to 16.8 on admission Given recent hospitalization, treating for HAP - continue linezolid and cipro (d6/7) Normal [facility] Emission Specialist Authentication Interface Message Text Level 1.5 10/21 - only agreeable to mag oxide - repeat level in am Normal [facility] Emission Specialist Authentication Interface Message Text Level 3.2 10/21 - he declined potassium PO and IV again today - BMP in am Normal [facility] Emission Specialist Authentication Interface Message Text - apixaban 5 mg po bid Normal [facility] Emission Specialist Authentication Interface Message Text Max creatinine this stay 3.2, down trending to 1.46 which appears to be better than baseline - avoid nephrotoxic agents - repeat bmp in am Normal [facility] Consultson 10-22-2024 Emission Specialist Authentication Interface Message Text Normal [facility] Progress Noteson 10-22-2024 Emission Specialist Authentication Interface Message Text Normal [facility] Emission Specialist Authentication Interface Message Text SOCIAL WORK Per interdisciplinary rounds, pt is not medically cleared for discharge. NIR is 10/23/24. Plan is for pt to discharge home with no needs. SW will continue to follow. No weekend SW needs. Selena Feliz PROPELLANT CHARGE LOADER, PROJECT FINANCIAL ANALYST Inpatient Reviewer Sales Normal [facility] Emission Specialist Authentication Interface Message Text Normal [facility] Assessment AND Plan Noteon 0 10-21-2024 Emission Specialist Authentication Interface Message Text Echo with LVEF 15% - Bumex 1 mg daily on hold - consider restarting in am - isordil 20 mg tid - patient declining further medication titration - monitor on tele if agreeable - follow up with heart failure as an outpatient - continue GOC discussion Normal [facility] Emission Specialist Authentication Interface Message Text Level 1.5 this am - only agreeable to mag oxide - repeat level in am Normal [facility] Emission Specialist Authentication Interface Message Text - apixaban 5 mg po bid Normal [facility] Emission Specialist Authentication Interface Message Text Level 3.2 - he declined potassium PO and IV - BMP in am Normal [facility] Emission Specialist Authentication Interface Message Text With hyperbili - liver clinic as an outpatient - HFP in am Normal [facility] Emission Specialist Authentication Interface Message Text Max creatinine this stay 3.2, down trending to 1.46 which appears to be better than baseline - avoid nephrotoxic agents - repeat bmp in am Normal [facility] Emission Specialist Authentication Interface Message Text No leukocytosis, afebrile, stable on room air, procal elevated to 16.8 Given recent hospitalization, treating for HAP - continue linezolid and cipro Normal [facility] Emission Specialist Authentication Interface Message Text Managed in the cicu, at this time has resolved Normal [facility] BASIC METABOLIC PANELon 04-2 Anion gap [Moles/Vol] 17 mmol/L Normal 10-20 [facility] Comment on above: Performed By: #### H EPATIC, MG, CH8 ####[facility] [id number] [place], Calcium [Mass/Vol] 7.7 mg/dL Low 8.6-10.3 [facility] Comment on above: Performed By: #### H EPATIC MG, CH8 ####[facility] [id number] [place], Chloride [Moles/Vol] 96 mmol/L Low 98-107 [facility] Comment on above: Performed By: #### H EPATIC, MG, CH8 ####[facility] [id number] [place], CO2 [Moles/Vol] 32 mmol/L High 21-31 [facility] Comment on above: Performed By: #### H EPATIC, MG, CH8 ####[facility] [id number] [place], Creatinine [Mass/Vol] 1.46 mg/dL High 0.70-1.30 [facility] Comment on above: Performed By: #### MG NEPTALI CH8 ####S PATHOLOGY [id number] [place], ESTIMATED GFR (CKD-EPI) 60 mL/min/1.73sqm Normal >=60 [facility] Comment on above: Result Comment: 2020 [...] Inclusion of Race in Diagnosing Kidney Disease. [place] Journal of Kidney Diseases 2021;79(2):268-88.e1.2. N Engl J Med 2020 Vol. 385 Issue 19 Pages [phone] Performed By: #### MG NEPTALI CH8 ####S PATHOLOGY [id number] [place], Glucose [Mass/Vol] 131 mg/dL High 74-109 [facility] Comment on above: Performed By: #### MG GUNDERSON CH8 ####S PATHOLOGY [id number] [place], Potassium [Moles/Vol] 3.2 mmol/L Low 3.5-5.0 [facility] Comment on above: Performed By: #### MG NEPTALI CH8 ####S PATHOLOGY [id number] [place], Sodium [Moles/Vol] 142 mmol/L Normal 136-145 [facility] Comment on above: Performed By: #### MG GUNDERSON CH8 ####[facility] [id number] [place], Urea nitrogen [Mass/Vol] 52 mg/dL High 7-25 [facility] Comment on above: Performed By: #### MG NEPTALI CH8 ####S PATHOLOGY [id number] [place], Basic metabolic 2000 panelon 10-21-2024 Anion [...] Inclusion of Race in Diagnosing Kidney Disease. [place] Journal of Kidney Diseases 202;79(2):268-88.e1. 2. N Engl J Med 1 Vol. 385 Issue 19 Pages [phone] Glucose [Mass/Vol] 131 mg/dL High 74 - [...] Performed By: #### C BCDSAT ####[facility] [id number] [address], Basophils/100 WBC (Bld) 0.2 % Normal <=1.9 [facility] Comment on above: Performed By: #### C BCDSAT ####[facility] [id number] [place], Eosinophils (Bld) [#/Vol] 0.02 10*3/uL Normal 0.00-0.70 [facility] Comment on above: Performed By: #### C BCDSAT ####[facility] PATH[facility] [id number] [place] [address], Eosinophils/100 WBC (Bld) 0.2 % Normal 0.1-4.0 [facility] Comment on above: Performed By: #### C BCDSAT ####[facility] [id number] [place] [address], Erythrocyte distribution width (RBC) [Ratio] 17.0 % High 11.5-14.5 [facility] Comment on above: Performed By: #### C BCDSAT ####[facility] [id number] [place] [address], Hematocrit (Bld) [Volume fraction] 40.8 % Low 41.0-53.0 [facility] Comment on above: Performed By: #### C BCDSAT ####[facility] [id number] [place], Hemoglobin (Bld) [Mass/Vol] 13.8 g/dL Low 13.9-16.3 [facility] Comment on above: Performed By: #### C BCDSAT ####[facility] [id number] [place], Lymphocytes (Bld) [#/Vol] 0.84 10*3/uL Low 1.00-4.80 [facility] Comment on above: Performed By: #### C BCDSAT ####[facility] [id number] [place], Lymphocytes/100 WBC (Bld) 8.7 % Low 24.0-44.0 [facility] Comment on above: Performed By: #### C BCDSAT ####[facility] [id number] [place], MCH (RBC) [Entitic mass] 35.2 pg High 26.0-34.0 [facility] Comment on above: Performed By: #### C BCDSAT ####[facility] [id number] [place], MCHC (RBC) [Mass/Vol] 33.7 g/dL Normal 32.0-35.9 [facility] Comment on above: Performed By: #### C BCDSAT ####[facility] [id number] [place], MCV (RBC) [Entitic vol] 105 fL High 80-100 [facility] Comment on above: Performed By: #### C BCDSAT ####[facility] [id number] [place] [address], Monocytes (Bld) [#/Vol] 0.50 10*3/uL Normal 0.20-1.00 [facility] Comment on above: Performed By: #### C BCDSAT ####[facility] [id number] [place], Monocytes/100 WBC (Bld) 5.1 % Normal 2.0-11.0 [facility] Comment on above: Performed By: #### C BCDSAT ####[facility] [id number] [place], Neutrophils (Bld) [#/Vol] 8.32 10*3/uL High 1.50-8.00 [facility] Comment on above: Performed By: #### C BCDSAT ####[facility] [id number] [place], Neutrophils/100 WBC (Bld) 85.8 % High 31.0-76.0 [facility] Comment on above: Performed By: #### C BCDSAT ####[facility] [id number] [place], Platelet mean volume (Bld) [Entitic vol] 8.3 fL Normal 7.5-11.2 [facility] Comment on above: Performed By: #### C MARYAT ####[facility] [id number] [place], Platelets (Bld) [#/Vol] 162 10*3/uL Normal 150-400 [facility] Comment on above: Performed By: #### Kelly TUCKERDSAT ####[facility] [id number] [place], RBC (Bld) [#/Vol] 3.90 10*6/uL Low 4.50-5.90 [facility] Comment on above: Performed By: #### Kelly HERNANDEZAT ####[facility] [id number] [place], WBC (Bld) [#/Vol] 9.7 10*3/uL Normal 4.5-11.5 [facility] Comment on above: Performed By: #### Kelly BCSHEYLAAT ####[facility] [id number] [place], Disruptive Behavior Progress Noteon 10-21-2024 Emission Specialist Authentication Interface Message Text Normal [facility] HEPATIC FUNCTION PANELon Albumin [Mass/Vol] 3.1 [...] Albumin [Mass/Vol] 3.1 g/dL Low 3.5-5.7 [facility] Comment on above: Performed By: #### H TICO MG, CH8 ####[facility] [id number] [place], ALK 348 IU/L High 34-104 [facility] Comment on above: Performed By: #### MG GUNDERSON CH8 ####[facility] [id number] [place], ALT [Catalytic activity/Vol] 43 U/L Normal 7-52 [facility] Comment on above: Performed By: #### MG GUNDERSON CH8 ####[facility] [id number] [place], AST [Catalytic activity/Vol] 60 U/L High 13-39 [facility] Comment on above: Performed By: #### MG GUNDERSON CH8 ####S PATHOLOGY [id number] [place], Bilirubin [Mass/Vol] 6.4 mg/dL High 0.3-1.0 [facility] Comment on above: Performed By: #### MG GUNDERSON CH8 ####[facility] [id number] [place], Bilirubin.direct [Mass/Vol] 3.54 mg/dL High 0.03-0.18 [facility] Comment on above: Performed By: #### MG GUNDERSON CH8 ####[facility] [id number] [place], Protein [Mass/Vol] 6.3 g/dL Normal 6.0-8.3 [facility] Comment on above: Performed By: #### MG GUNDESRON CH8 ####S PATHOLOGY [id number] [place], MAGNESIUMon 10-21-2024 Magnesium [Mass/Vol] 1.5 mg/dL Low 1.9 - 2 .7 mg/dL [facility] Magnesium [Mass/Vol] 1.5 mg/dL Low 1.9-2.7 [facility] Comment on above: Performed By: #### MG GUNDERSON CH8 ####S PATHOLOGY [id number] [place], No Panel Informationon 10-21 Interpretation and review of laboratory results Abnormal [facility] Progress Noteson 10-21-2024 Emission Specialist Authentication Interface Message Text Normal [facility] Emission Specialist Authentication Interface Message Text Normal [facility] Emission Specialist Authentication Interface Message Text Patients potassium is 3.2. RN attempted to administer ordered potassium replacement. Patient refused medication. Pt educated on risks of not taking medication with a low potassium. Dr. Myers notified. Normal [facility] Emission Specialist Authentication Interface Message Text Per interdisciplinary rounds, GOC conversation to take place with pt today. SW will follow for outcome of this meeting. Yee Cassidy [facility] Inpatient Reviewer Sales Normal [facility] [employer] [facility] Emission Specialist Authentication Interface Message Text Normal [facility] Transfer Noteon 10-21-2024 Emission Specialist Authentication Interface Message Text Normal [facility] [employer] [employer] [facility] BASIC METABOLIC PANELon 09-29 Anion gap [Moles/Vol] 19 mmol/L Normal 10-20 [facility] Comment on above: Performed By: #### C H8, HEPATIC, MG ####[facility] [id number] [place], Calcium [Mass/Vol] 8.4 mg/dL Low 8.6-10.3 [facility] Comment on above: Performed By: #### C H8, HEPATIC, MG ####[facility] [id number] [place], Chloride [Moles/Vol] 99 mmol/L Normal 98-107 [facility] Comment on above: Performed By: #### C H8, HEPATIC, MG ####[facility] [id number] [place], CO2 [Moles/Vol] 29 mmol/L Normal 21-31 [facility] Comment on above: Performed By: #### C H8, HEPATIC, MG ####[facility] [id number] [place], Creatinine [Mass/Vol] 2.20 mg/dL High 0.70-1.30 [facility] Comment on above: Performed By: #### C H8, HEPATIC, MG ####[facility] [id number] [place], ESTIMATED GFR (CKD-EPI) 36 mL/min/1.73sqm Low >=60 [facility] Comment on above: Result Comment: 2020 [...] Inclusion of Race in Diagnosing Kidney Disease. [place] Journal of Kidney Diseases 2021;79(2):268-88.e1.2. N Engl J Med 1 Vol. 385 Issue 19 Pages [phone] Performed By: #### C H8, HEPATIC, MG ####[facility] [id number] [place], Glucose [Mass/Vol] 117 mg/dL High 74-109 [facility] Comment on above: Performed By: #### C H8, HEPATIC, MG ####[facility] [id number] [place], Potassium [Moles/Vol] 3.5 mmol/L Normal 3.5-5.0 [facility] Comment on above: Performed By: #### C H8, HEPATIC, MG ####[facility] [id number] [place], Sodium [Moles/Vol] 143 mmol/L Normal 136-145 [facility] Comment on above: Performed By: #### C H8, HEPATIC, MG ####[facility] [id number] [place], Urea nitrogen [Mass/Vol] 72 mg/dL High 7-25 [facility] Comment on above: Performed By: #### C H8, HEPATIC, MG ####[facility] [id number] [place], Basic metabolic 2000 panelOr dered By: [...] Inclusion of Race in Diagnosing Kidney Disease. [place] Journal of Kidney Diseases 2021;79(2):268-88.e1. 2. N Engl J Med 2020 Vol. 385 Issue 19 Pages 4462-2160 Glucose [Mass/Vol] 117 mg/dL High 74 - 109 mg/dL [facility] Interpretation and review of laboratory results Abnormal [facility] Potassium [Moles/Vol] 3.5 mmol/L 3.5 - 5.0 mmol/L [facility] Sodium [Moles/Vol] 143 mmol/L 136 - 145 mmol/L [facility] Urea nitrogen [Mass/Vol] 72 mg/dL High 7 - 25 mg/dL [facility] CBC WITH DIFFERENTIALon 2 Basophils (Bld) [#/Vol] 0.07 10*3/uL 0.00 - [...] (Bld) [#/Vol] 0.07 10*3/uL Normal 0.00-0.20 [facility] Comment on above: Performed By: #### C BCDSAT ####[facility] [id number] [place] [address], [phone] Basophils/100 WBC (Bld) 0.6 % Normal <=1.9 [facility] Comment on above: Performed By: #### C BCDSAT ####[facility] [id number] [place], Eosinophils (Bld) [#/Vol] 0.02 10*3/uL Normal 0.00-0.70 [facility] Comment on above: Performed By: #### C BCDSAT ####[facility] [id number] [place] [address], Eosinophils/100 WBC (Bld) 0.2 % Normal 0.1-4.0 [facility] Comment on above: Performed By: #### C BCDSAT ####[facility] [id number] [place] [address], Erythrocyte distribution width (RBC) [Ratio] 17.2 % High 11.5-14.5 [facility] Comment on above: Performed By: #### C BCDSAT ####[facility] [id number] [place] [address], Hematocrit (Bld) [Volume fraction] 44.2 % Normal 41.0-53.0 [facility] Comment on above: Performed By: #### C BCDSAT ####[facility] [id number] [place] [address], Hemoglobin (Bld) [Mass/Vol] 14.9 g/dL Normal 13.9-16.3 [facility] Comment on above: Performed By: #### C BCDSAT ####[facility] [id number] [place] [address], Lymphocytes (Bld) [#/Vol] 0.95 10*3/uL Low 1.00-4.80 [facility] Comment on above: Performed By: #### C BCDSAT ####[facility] [id number] [place] [address], Lymphocytes/100 WBC (Bld) 8.2 % Low 24.0-44.0 [facility] Comment on above: Performed By: #### C BCDSAT ####[facility] [id number] [place] [address] [place], MCH (RBC) [Entitic mass] 34.9 pg High 26.0-34.0 [facility] Comment on above: Performed By: #### C MARYAT ####S PATHOLOGY [id number] [place] [address], MCHC (RBC) [Mass/Vol] 33.7 g/dL Normal 32.0-35.9 [facility] Comment on above: Performed By: #### C MARYAT ####[facility] [id number] [place] [address], MCV (RBC) [Entitic vol] 104 fL High 80-100 [facility] Comment on above: Performed By: #### C MARYAT ####[facility] [id number] [place] [address], Monocytes (Bld) [#/Vol] 0.60 10*3/uL Normal 0.20-1.00 [facility] Comment on above: Performed By: #### C MARYAT ####[facility] [id number] [place] [address], Monocytes/100 WBC (Bld) 5.2 % Normal 2.0-11.0 [facility] Comment on above: Performed By: #### C MARYAT ####[facility] [id number] [place] [address], Neutrophils (Bld) [#/Vol] 9.91 10*3/uL High 1.50-8.00 [facility] Comment on above: Performed By: #### C MARYAT ####[facility] [id number] [place] [address], Neutrophils/100 WBC (Bld) 85.8 % High 31.0-76.0 [facility] Comment on above: Performed By: #### C BCSHEYLAAT ####S PATHOLOGY [id number] [place] [address], Platelet mean volume (Bld) [Entitic vol] 8.5 fL Normal 7.5-11.2 [facility] Comment on above: Performed By: #### C BCDSAT ####[facility] [id number] [place], Platelets (Bld) [#/Vol] 142 10*3/uL Low 150-400 [facility] Comment on above: Performed By: #### C BCDSAT ####[facility] [id number] [place], RBC (Bld) [#/Vol] 4.27 10*6/uL Low 4.50-5.90 [facility] Comment on above: Performed By: #### C BCDSAT ####[facility] [id number] [place], WBC (Bld) [#/Vol] 11.5 10*3/uL Normal 4.5-11.5 [facility] Comment on above: Performed By: #### C BCDSAT ####S PATHOLOGY [id number] [place], Disruptive Behavior Progress Noteon 10-20-2024 Emission Specialist Authentication Interface Message Text Normal [facility] Emission Specialist Authentication Interface Message Text Normal [facility] EKG 12 LEAD - PERFORMon 09-29 [...] wave Atrium by EKG 53 BPM Metr [facility] P wave axis 70 degrees [facility] P-R Interval 154 ms [facility] Q-T interval 546 ms [facility] Q-T interval corrected 512 ms [facility] QRS axis 226 degrees [facility] QRS duration 170 ms [facility] T wave axis 18 degrees [facility] HEPATIC FUNCTION PANELon Albumin [Mass/Vol] 3.3 g/dL Low 3.5 - 5.7 g/dL [facility] ALP [Catalytic activity/Vol] 359 U/L High [facility] ALT [Catalytic activity/Vol] 33 U/L [facility] AST [Catalytic activity/Vol] 50 U/L [facility] Bil[facility] [Mass/Vol] 7.9 mg/dL High 0.3 - 1 .0 mg/dL [facility] Bilirubin.direct [Mass/Vol] 4.05 mg/dL High 0.03 - 0.18 mg/dL [facility] Interpretation and review of laboratory results Abnormal [facility] Protein [Mass/Vol] 6.4 g/dL 6.0 - 8.3 g/dL [facility] Albumin [Mass/Vol] 3.3 g/dL Low 3.5-5.7 [facility] Comment on above: Performed By: #### C H8, HEPATIC, MG ####[facility] [id number] [place], ALK 359 IU/L High 34-104 [facility] Comment on above: Performed By: #### Kelly Simon, HEPATIC, MG ####[facility] [id number] [place], ALT [Catalytic activity/Vol] 33 U/L Normal 7-52 [facility] Comment on above: Performed By: #### C H8, HEPATIC, MG ####[facility] [id number] [place], AST [Catalytic activity/Vol] 50 U/L High 13-39 [facility] Comment on above: Performed By: #### C H8, HEPATIC, MG ####[facility] [id number] [place], Bilirubin [Mass/Vol] 7.9 mg/dL High 0.3-1.0 [facility] Comment on above: Performed By: #### C H8, HEPATIC, MG ####[facility] [id number] [place], Bilirubin.direct [Mass/Vol] 4.05 mg/dL High 0.03-0.18 [facility] Comment on above: Performed By: #### C H8, HEPATIC, MG ####[facility] [id number] [place], Protein [Mass/Vol] 6.4 g/dL Normal 6.0-8.3 [facility] Comment on above: Performed By: #### C H8, HEPATIC, MG ####[facility] [id number] [place], LACTIC ACIDOrdered By: Yasmany Moran on 10-20-2024 Interpretation and review of laboratory results Abnormal [facility] Lactate [Moles/Vol] 2.1 mmol/L High 0.5 - 1. 6 mmol/L [facility] This test was developed, and its performance characteristics determined by the Department of Pathology of [facility]. It has not been cleared or approved by the FDA. This test is used for clinical purposes only. [facility] LACTIC ACIDon 10-20-2024 CR LACT 2.1 mmol/L High 0.5-1.6 [facility] Comment on above: Order Comment: This test was developed, and its performance characteristics determined by the Department of Pathology of [facility]. It has not been cleared or approved by the FDA. This test is used for clinical purposes only. Performed By: #### L ACT ####[facility] [id number] [place], MAGNESIUMon 10-20-2024 Interpretation and review of laboratory results Normal [facility] Magnesium [Mass/Vol] 2.1 mg/dL 1.9 - 2 .7 mg/dL [facility] Magnesium [Mass/Vol] 2.1 mg/dL Normal 1.9-2.7 [facility] Comment on above: Performed By: #### C HGissel, HEPATIC, MG ####[facility] [id number] [place], No Panel Informationon 10-20 [facility] Progress Noteson 10-20-2024 Emission Specialist Authentication Interface Message Text Normal [facility] Transfer Noteon 10-20-2024 Emission Specialist Authentication Interface Message Text Normal [facility] Progress Noteson 10-19-2024 Emission Specialist Authentication Interface Message Text Normal [facility] Emission Specialist Authentication Interface Message Text 1439: Informed Dr. Myers IV team unable to place any ultrasound guided IVs or obtain any blood for labs. Normal [facility] Emission Specialist Authentication Interface Message Text Patient Stated can I take my bumex after my IV is done. Patient now stating can I take my bumex after I eat. I will continue to attempt to deliver medications in a timely matter. Team is aware. Normal [facility] Emission Specialist Authentication Interface Message Text Normal [facility] Emission Specialist Authentication Interface Message Text Normal [facility] Emission Specialist Authentication Interface Message Text Normal [facility] Emission Specialist Authentication Interface Message Text Normal [facility] [employer] [facility] BASIC METABOLIC PANELon 04-2 Anion gap [Moles/Vol] 21 mmol/L High 10-20 [facility] Comment on above: Performed By: #### H EPATIC, MG, PROCAL, CH8 ####S PATHOLOGY [id number] [place], Calcium [Mass/Vol] 8.7 mg/dL Normal 8.6-10.3 [facility] Comment on above: Performed By: #### H EPATIC, MG, PROCAL, CH8 ####S PATHOLOGY [id number] [place], Chloride [Moles/Vol] 101 mmol/L Normal 98-107 [facility] Comment on above: Performed By: #### H EPATIC, MG, PROCAL, CH8 ####S PATHOLOGY [id number] [place], CO2 [Moles/Vol] 21 mmol/L Normal 21-31 [facility] Comment on above: Performed By: #### H EPATIC, MG, PROCAL, CH8 ####S PATHOLOGY [id number] [place], Creatinine [Mass/Vol] 3.22 mg/dL High 0.70-1.30 [facility] Comment on above: Performed By: #### H EPATIC, MG, PROCAL, CH8 ####S PATHOLOGY [id number] [place], ESTIMATED GFR (CKD-EPI) 23 mL/min/1.73sqm Low >=60 [facility] Comment on above: Result Comment: 2020 [...] Inclusion of Race in Diagnosing Kidney Disease. [place] Journal of Kidney Diseases 202;79(2):268-88.e1.2. N Engl J Med 1 Vol. 385 Issue 19 Pages [phone] Performed By: #### H EPATIC, MG, PROCAL, CH8 ####S PATHOLOGY [id number] [place], Glucose [Mass/Vol] 169 mg/dL High 74-109 [facility] Comment on above: Performed By: #### H EPATIC, MG, PROCAL, CH8 ####S PATHOLOGY [id number] [place], Potassium [Moles/Vol] 4.1 mmol/L Normal 3.5-5.0 [facility] Comment on above: Performed By: #### H EPATIC, MG, PROCAL, CH8 ####S PATHOLOGY [id number] [place], Sodium [Moles/Vol] 139 mmol/L Normal 136-145 [facility] Comment on above: Performed By: #### H EPATIC, MG, PROCAL, CH8 ####S PATHOLOGY [id number] [place], Urea nitrogen [Mass/Vol] 88 mg/dL High 7-25 [facility] Comment on above: Performed By: #### H EPATIC, MG, PROCAL, CH8 ####S PATHOLOGY [id number] [place], Basic metabolic 2000 panelon 10-18-2024 Anion [...] Inclusion of Race in Diagnosing Kidney Disease. [place] Journal of Kidney Diseases 2021;79(2):268-88.e1. 2. N Engl J Med 2020 Vol. 385 Issue 19 Pages [phone] Glucose [Mass/Vol] 169 mg/dL High 74 - [...] 10*6/uL Low [facility] WBC (Bld) [#/Vol] 12.1 10*3/uL High 4.5 - 11.5 K/uL [facility] Basophils (Bld) [#/Vol] 0.05 10*3/uL Normal 0.00-0.20 [facility] Comment on above: Performed By: #### C BCDSAT ####S PATHOLOGY [id number] [place], Basophils/100 WBC (Bld) 0.4 % Normal <=1.9 [facility] Comment on above: Performed By: #### C BCDSAT ####S PATHOLOGY [id number] [place], Eosinophils (Bld) [#/Vol] 0.00 10*3/uL Normal 0.00-0.70 [facility] Comment on above: Performed By: #### C MARYAT ####[facility] [id number] [place], Eosinophils/100 WBC (Bld) 0.0 % Low 0.1-4.0 [facility] Comment on above: Performed By: #### C MARYAT ####[facility] [id number] [place] [address], Erythrocyte distribution width (RBC) [Ratio] 16.4 % High 11.5-14.5 [facility] Comment on above: Performed By: #### C MARYAT ####[facility] [id number] [place] [address], Hematocrit (Bld) [Volume fraction] 40.1 % Low 41.0-53.0 [facility] Comment on above: Performed By: #### C MARYAT ####[facility] [id number] [place] [address], Hemoglobin (Bld) [Mass/Vol] 13.3 g/dL Low 13.9-16.3 [facility] Comment on above: Performed By: #### Kelly HERNANDEZAT ####[facility] [id number] [place] [address], Lymphocytes (Bld) [#/Vol] 0.99 10*3/uL Low 1.00-4.80 [facility] Comment on above: Performed By: #### C MARYAT ####[facility] [id number] [place] [address], Lymphocytes/100 WBC (Bld) 8.2 % Low 24.0-44.0 [facility] Comment on above: Performed By: #### C MARYAT ####[facility] [id number] [place] [address], MCH (RBC) [Entitic mass] 34.2 pg High 26.0-34.0 [facility] Comment on above: Performed By: #### Kelly HERNANDEZAT ####[facility] [id number] [place] [address], MCHC (RBC) [Mass/Vol] 33.2 g/dL Normal 32.0-35.9 [facility] Comment on above: Performed By: #### Kelly HERNANDEZAT ####[facility] [id number] [place], MCV (RBC) [Entitic vol] 103 fL High 80-100 [facility] Comment on above: Performed By: #### Kelly HERNANDEZAT ####[facility] [id number] [place] [address], Monocytes (Bld) [#/Vol] 0.59 10*3/uL Normal 0.20-1.00 [facility] Comment on above: Performed By: #### Kelly HERNANDEZAT ####[facility] [id number] [place] [address], Monocytes/100 WBC (Bld) 4.9 % Normal 2.0-11.0 [facility] Comment on above: Performed By: #### Kelly HERNANDEZAT ####[facility] [id number] [place] [address], Neutrophils (Bld) [#/Vol] 10.45 10*3/uL High 1.50-8.00 [facility] Comment on above: Performed By: #### Kelly HERNANDEZAT ####[facility] [id number] [place] [address], Neutrophils/100 WBC (Bld) 86.6 % High 31.0-76.0 [facility] Comment on above: Performed By: #### Kelly HERNANDEZAT ####[facility] [id number] [place], Platelet mean volume (Bld) [Entitic vol] 9.6 fL Normal 7.5-11.2 [facility] Comment on above: Performed By: #### Kelly BCSHEYLAAT ####[facility] [id number] [place] [address], Platelets (Bld) [#/Vol] 135 10*3/uL Low 150-400 [facility] Comment on above: Performed By: #### C BCDSAT ####[facility] [id number] [place], RBC (Bld) [#/Vol] 3.90 10*6/uL Low 4.50-5.90 [facility] Comment on above: Performed By: #### C BCDSAT ####[facility] [id number] [place], WBC (Bld) [#/Vol] 12.1 10*3/uL High 4.5-11.5 [facility] Comment on above: Performed By: #### C BCDSAT ####[facility] [id number] [place], Disruptive Behavior Progress Noteon 10-18-2024 Emission Specialist Authentication Interface Message Text Normal [facility] 10-18-2024 Emission Specialist Authentication Interface Message Text notified of critical LACTATE value of 4.7. Hard copy of results given to . Normal [facility] Emission Specialist Authentication Interface Message Text Dr. RESENDEZ notified of critical LACTATE value of 5.3. Hard copy of results given to Dr. RESENDEZ. Normal [facility] EKG 12 LEAD - PERFORMon 09-29 [...] ms [facility] Q-T interval corrected 513 ms In [facility] QRS axis 153 degrees [facility] QRS duration 144 ms [facility] T wave axis -18 degrees [facility] H AND Timo 10-18-2024 Emission Specialist Authentication Interface Message Text Normal [facility] HEPATIC FUNCTION PANELon Albumin [Mass/Vol] 3.3 g/dL Low 3.5 - 5.7 g/dL [facility] ALP [Catalytic activity/Vol] 273 U/L High [facility] ALT [Catalytic activity/Vol] 25 U/L [facility] AST [Catalytic activity/Vol] 31 U/L [facility] Bilirubin [Mass/Vol] 8.8 mg/dL High 0.3 - 1 .0 mg/dL [facility] Bilirubin.direct [Mass/Vol] 4.95 mg/dL High 0.03 - 0.18 mg/dL [facility] Protein [Mass/Vol] 6.2 g/dL 6.0 - 8.3 g/dL [facility] Albumin [Mass/Vol] 3.3 g/dL Low 3.5-5.7 [facility] Comment on above: Performed By: #### H EPATIC, MG, PROCAL, CH8 ####[facility] [id number] [place], [place], ALK 273 IU/L High 34-104 [facility] Comment on above: Performed By: #### H EPATIC, MG, PROCAL, CH8 ####[facility] [id number] [place], ALT [Catalytic activity/Vol] 25 U/L Normal 7-52 [facility] Comment on above: Performed By: #### H EPATIC, MG, PROCAL, CH8 ####S PATHOLOGY [id number] [place], AST [Catalytic activity/Vol] 31 U/L Normal 13-39 [facility] Comment on above: Performed By: #### H EPATIC, MG, PROCAL, CH8 ####S PATHOLOGY [id number] [place], Bilirubin [Mass/Vol] 8.8 mg/dL High 0.3-1.0 [facility] Comment on above: Performed By: #### H EPATIC, MG, PROCAL, CH8 ####S PATHOLOGY [id number] [place], Bilirubin.direct [Mass/Vol] 4.95 mg/dL High 0.03-0.18 [facility] Comment on above: Performed By: #### H TICO MG, PROCAL, CH8 ####[facility] [id number] [place], Protein [Mass/Vol] 6.2 g/dL Normal 6.0-8.3 [facility] Comment on above: Performed By: #### H EPATIC MG, PROCAL, CH8 ####[facility] [id number] [place], HIGH SENSITIVITY TROPONIN Io n 10-18-2024 [...] by the Department of Pathology of [facility]. It has not been cleared or approved by the FDA. This test is used for clinical purposes only. [facility] LACTATE WITH REPEAT EDon CR LACT 5.3 mmol/L Critically high 0.5-1.6 [facility] Comment on above: Order Comment: This test was developed, and its performance characteristics determined by the Department of Pathology of [facility]. It has not been cleared or approved by the FDA. This test is used for clinical purposes only. Performed By: #### L ACTREPEAT ####[facility] [id number] [place], LACTIC ACIDOrdered By: Fely Read on 10-18-2024 Interpretation and review of laboratory results Abnormal [facility] Lactate [Moles/Vol] 4.8 mmol/L Critically high 0.5 - 1.6 mmol/L [facility] This test was developed, and its performance characteristics determined by the Department of Pathology of [facility]. It has not been cleared or approved by the FDA. This test is used for clinical purposes only. [facility] LACTIC ACIDon 10-18-2024 CR LACT 4.8 mmol/L Critically high 0.5-1.6 [facility] Comment on above: Order Comment: This test was developed, and its performance characteristics determined by the Department of Pathology of [facility]. It has not been cleared or approved by the FDA. This test is used for clinical purposes only. Performed By: #### L ACT ####[facility] [id number] [place], Interpretation and review of laboratory results Abnormal [facility] Lactate [Moles/Vol] 4.7 mmol/L Critically high 0.5 - 1.6 mmol/L [facility] This test was developed, and its performance characteristics determined by the Department of Pathology of [facility]. It has not been cleared or approved by the FDA. This test is used for clinical purposes only. [facility] CR LACT 4.7 mmol/L Critically high 0.5-1.6 [facility] Comment on above: Order Comment: This test was developed, and its performance characteristics determined by the Department of Pathology of [facility]. It has not been cleared or approved by the FDA. This test is used for clinical purposes only. Performed By: #### L ACT ####[facility] [id number] [place], MAGNESIUMon 10-18-2024 Magnesium [Mass/Vol] 2.9 mg/dL High 1.9 - 2 .7 mg/dL [facility] Magnesium [Mass/Vol] 2.9 mg/dL High 1.9-2.7 [facility] Comment on above: Performed By: #### H EPATIC, MG, PROCAL, CH8 ####[facility] [id number] [place], No Panel Informationon 10-18 Interpretation and review of laboratory results Abnormal [facility] PROCALCITONINon 10-18-2024 Interpretation and review of laboratory results Abnormal [facility] Procalcitonin IA [Mass/Vol] 16.82 ng/mL High NINF - 0.50 ng/mL [facility] Comment on above: Procalcitonin Concen trations < [...] retest Procalcitonin within 6 to 24 hours. [facility] PROCALCITONIN 16.82 ng/mL High <0.50 [facility] Comment on above: Result Comment: Proc [...] to 24 hours. Performed By: #### H TICO, MG, RASHAWN, CH8 ####[facility] [id number] [place], [address] Progress Noteson 10-18-2024 Emission Specialist Authentication Interface Message Text Normal [facility] Emission Specialist Authentication Interface Message Text Normal [facility] Emission Specialist Authentication Interface Message Text /GREG Myers notified of critical lactic acid value of 4.8. /GREG Myers read back critical results. New orders received. Normal [facility] Emission Specialist Authentication Interface Message Text Normal [facility] RESPIRATORY CULTURE, MISCOrd ered By: Lore Conklin on 10-18-2024 Bacteria identified Respiratory culture Nom (Unsp spec) Squamous Epithelial Cells present. Recommend submission of another specimen. [facility] Interpretation and review of laboratory results Normal [facility] RESPIRATORY CULTURE, MISCon 10-18-2024 RESPIRATORY CULTURE, MISC C RESP: Squamous Epithelial Cells present. Recommend submission of another specimen. Normal [facility] Comment on above: Performed By: #### C RESP ####[facility] Ivoiiloja6058 [facility] [place], [place] Troponin I.cardiac DL <= 0.0 1 ng/mL [Mass/Vol]on 10-18-2024 Interpretation and review of laboratory results Abnormal [facility] Elevated troponin ca n result from acute [...] within the clinical context using provider judgement. [facility] BASIC METABOLIC PANELon 09-29 Anion gap [Moles/Vol] 26 mmol/L High 10-20 [facility] Comment on above: Performed By: #### AUGUSTO Arauz ####S PATHOLOGY [id number] [place], Calcium [Mass/Vol] 8.7 mg/dL Normal 8.6-10.3 [facility] Comment on above: Performed By: #### Nichole Morales, CH8 ####S PATHOLOGY [id number] [place], Chloride [Moles/Vol] 101 mmol/L Normal 98-107 [facility] Comment on above: Performed By: #### Nichole Morales, CH8 ####[facility] [id number] [place], CO2 [Moles/Vol] 15 mmol/L Low 21-31 [facility] Comment on above: Performed By: #### Nichole Morales, FERNANDO8 ####S PATHOLOGY [id number] [place], Creatinine [Mass/Vol] 2.80 mg/dL High 0.70-1.30 [facility] Comment on above: Performed By: #### Nichole Morales, CH8 ####[facility] [id number] [place], ESTIMATED GFR (CKD-EPI) 27 mL/min/1.73sqm Low >=60 [facility] Comment on above: Result Comment: 2020 [...] Inclusion of Race in Diagnosing Kidney Disease. [place] Journal of Kidney Diseases 2021;79(2):268-88.e1.2. N Engl J Med 1 Vol. 385 Issue 19 Pages 4731-7462 Performed By: #### Nichole Morales, CH8 ####S PATHOLOGY [id number] [place], Glucose [Mass/Vol] 106 mg/dL Normal 74-109 [facility] Comment on above: Performed By: #### Nichole Morales, CH8 ####S PATHOLOGY [id number] [place], Potassium [Moles/Vol] 4.7 mmol/L Normal 3.5-5.0 [facility] Comment on above: Performed By: #### Nichole Morales, CH8 ####S PATHOLOGY [id number] [place], Sodium [Moles/Vol] 137 mmol/L Normal 136-145 [facility] Comment on above: Performed By: #### Nichole Morales, CH8 ####[facility] [id number] [place], Urea nitrogen [Mass/Vol] 84 mg/dL High 7-25 [facility] Comment on above: Performed By: #### Nichole Morales, CH8 ####[facility] [id number] [place], Basic metabolic 2000 panelon 10-17-2024 Anion [...] Inclusion of Race in Diagnosing Kidney Disease. [place] Journal of Kidney Diseases 2021;79(2):268-88.e1. 2. N Engl J Med 1 Vol. 385 Issue 19 Pages 6262-4437 Glucose [Mass/Vol] 106 mg/dL 74 - 109 [...] RBC (Bld) [#/Vol] 3.88 10*6/uL Low [facility] WBC (Bld) [#/Vol] 12.8 10*3/uL High 4.5 - 11.5 K/uL [facility] Basophils (Bld) [#/Vol] 0.03 10*3/uL Normal 0.00-0.20 [facility] Comment on above: Performed By: #### C BCDSAT ####[facility] [id number] [place] [address], Basophils/100 WBC (Bld) 0.3 % Normal <=1.9 [facility] Comment on above: Performed By: #### C BCDSAT ####[facility] [id number] [place] [address], Eosinophils (Bld) [#/Vol] 0.00 10*3/uL Normal 0.00-0.70 [facility] Comment on above: Performed By: #### C BCDSAT ####[facility] [id number] [place] [address], Eosinophils/100 WBC (Bld) 0.0 % Low 0.1-4.0 [facility] Comment on above: Performed By: #### C BCDSAT ####[facility] [id number] [place] [address], Erythrocyte distribution width (RBC) [Ratio] 16.3 % High 11.5-14.5 [facility] Comment on above: Performed By: #### C BCDSAT ####[facility] [id number] [place] [address], Hematocrit (Bld) [Volume fraction] 40.2 % Low 41.0-53.0 [facility] Comment on above: Performed By: #### Kelly HERNANDEZAT ####[facility] [id number] [place], Hemoglobin (Bld) [Mass/Vol] 13.6 g/dL Low 13.9-16.3 [facility] Comment on above: Performed By: #### Kelly HERNANDEZAT ####[facility] [id number] [place] [address], Lymphocytes (Bld) [#/Vol] 1.01 10*3/uL Normal 1.00-4.80 [facility] Comment on above: Performed By: #### Kelly HERNANDEZAT ####[facility] [id number] [place] [address], Lymphocytes/100 WBC (Bld) 7.8 % Low 24.0-44.0 [facility] Comment on above: Performed By: #### Kelly HERNANDEZAT ####[facility] [id number] [place] [address], MCH (RBC) [Entitic mass] 34.9 pg High 26.0-34.0 [facility] Comment on above: Performed By: #### Kelly HERNANDEZAT ####[facility] [id number] [place] [address], MCHC (RBC) [Mass/Vol] 33.8 g/dL Normal 32.0-35.9 [facility] Comment on above: Performed By: #### Kelly HERNANDEZAT ####[facility] [id number] [place] [address], MCV (RBC) [Entitic vol] 104 fL High 80-100 [facility] Comment on above: Performed By: #### Kelly HERNANDEZAT ####[facility] [id number] [place] [address], MONOCYTE DISTRIBUTION WIDTH 20 Normal <=20 [facility] Comment on above: Performed By: #### Kelly HERNANDEZAT ####[facility] [id number] [place] [address], Monocytes (Bld) [#/Vol] 0.82 10*3/uL Normal 0.20-1.00 [facility] Comment on above: Performed By: #### Kelly HERNANDEZAT ####[facility] [id number] [place], Monocytes/100 WBC (Bld) 6.4 % Normal 2.0-11.0 [facility] Comment on above: Performed By: #### Kelly HERNANDEZAT ####[facility] [id number] [place] [address], Neutrophils (Bld) [#/Vol] 10.98 10*3/uL High 1.50-8.00 [facility] Comment on above: Performed By: #### Kelly HERNANDEZAT ####[facility] [id number] [place] [address], Neutrophils/100 WBC (Bld) 85.5 % High 31.0-76.0 [facility] Comment on above: Performed By: #### Kelly HERNANDEZAT ####[facility] [id number] [place] [address], Platelet mean volume (Bld) [Entitic vol] 9.3 fL Normal 7.5-11.2 [facility] Comment on above: Performed By: #### Kelly HERNANDEZAT ####[facility] [id number] [place] [address], Platelets (Bld) [#/Vol] 153 10*3/uL Normal 150-400 [facility] Comment on above: Performed By: #### Kelly HERNANDEZAT ####[facility] [id number] [place], RBC (Bld) [#/Vol] 3.88 10*6/uL Low 4.50-5.90 [facility] Comment on above: Performed By: #### Kelly HERNANDEZAT ####[facility] [id number] [place], WBC (Bld) [#/Vol] 12.8 10*3/uL High 4.5-11.5 [facility] Comment on above: Performed By: #### Kelly HERNANDEZAT ####[facility] [id number] [place], [address] ED Noteson 10-17-2024 Emission Specialist Authentication Interface Message Text Delay in antibiotics d/t no IV access Normal [facility] ED Provider Noteson 10-18-19 Emission Specialist Authentication Interface Message Text Normal [facility] Emission Specialist Authentication Interface Message Text Normal [facility] HIGH SENSITIVITY TROPONIN Io n 10-17-2024 HS TROPONIN I 49 ng/L High <=15 [facility] Comment on above: Order Comment: [place] monalisa troponin can result from acute myocardial [...] Performed By: #### H STRP ####[facility] [id number] [place], [address] Troponin I.cardiac DL <= 0.01 ng/mL [Mass/Vol] 40 ng/L High NINF - 15 ng/L [facility] HS TROPONIN I 40 ng/L High <=15 [facility] Comment on above: Order Comment: [place] monalisa troponin can result from acute myocardial [...] Performed By: #### H STRP ####[facility] [id number] [place], MAGNESIUMon 10-17-2024 Magnesium [Mass/Vol] 2.9 mg/dL High 1.9 - 2 .7 mg/dL [facility] Magnesium [Mass/Vol] 2.9 mg/dL High 1.9-2.7 [facility] Comment on above: Performed By: #### M G, CH8 ####[facility] [id number] [place], NT PRO-BNPon 10-17-2024 Interpretation and review of laboratory results Abnormal [facility] Natriuretic peptide.B prohormone N-Terminal IA [Mass/Vol] 28564 pg/mL High NINF - 450 pg/mL [facility] Result: <300 pg/mL (All ages). Interpretation: Negative. Heart failure unlikely. Result: 300-450 pg/mL (<50 years), 300-900 pg/mL (50-75 years), 300-1800 pg/mL (>75 years). Interpretation: Indeterminate. Consider other reasons for NT Pro-BNP elevation. Result: >450 pg/mL (<50 years), >900 pg/mL (50-75 years), >1800 pg/mL (>75 years). Interpretation: Positive. Heart failure likely. [facility] Natriuretic peptide B (Bld) [Mass/Vol] 09220 pg/mL High <=450 [facility] Comment on above: Order Comment: Resul t: <300 pg/mL (All ages).Interpretation: Negative. Heart failure unlikely.Result: 300-450 pg/mL (<50 years), 300-900 pg/mL (50-75 years), 300-1800 pg/mL (>75 years).Interpretation: Indeterminate. Consider other reasons for NT Pro-BNP elevation.Result: >450 pg/mL (<50 years), >900 pg/mL (50-75 years), >1800 pg/mL (>75 years).Interpretation: Positive. Heart failure likely. Performed By: #### N T-PROBNP ####[facility] [id number] [place], No Panel Informationon 10-17 Interpretation and review of laboratory results Abnormal [facility] PROTHROMBIN TIME AND INRon 0 10-17-2024 INR Coag (PPP) [Relative time] 2.14 {INR} High 0.90 - 1.10 [facility] Interpretation and review of laboratory results Abnormal [facility] PT Coag (PPP) [Time] 24 s High [facility] INR Coag (PPP) [Relative time] 2.14 {INR} High 0.90-1.10 [facility] Comment on above: Performed By: #### P T ####[facility] [id number] [place], PT Coag (PPP) [Time] 24.0 s High 9.7-12.9 [facility] Comment on above: Performed By: #### P T ####S PATHOLOGY [id number] [place], Troponin I.cardiac DL <= 0.0 1 ng/mL [Mass/Vol]on 10-17-2024 Interpretation and review of laboratory results Abnormal [facility] Elevated troponin ca n result from acute [...] within the clinical context using provider judgement. [facility] XR CHEST AP OR PA 1 VIEWon 0 10-17-2024 XR CHEST AP OR PA 1 VIEW Normal [facility] XR Chest Single viewon 10-17 EXAMINATION: XR CHES T AP OR PA 1 VIEW 10/17/2024 09:00 PM CLINICAL HISTORY: Dyspnea at rest ASSOCIATED DIAGNOSIS: Dyspnea at rest ORDERING PROVIDER: VIC RITTER NOTE: COMPARISON: Chest radiograph dated October 13, [...] is recommended to document resolution. MACRO: None [facility] observation (narrative) [facility] XR Chest Single viewOrdered By: Francisca Coronado on 10-17-2024 [facility] Work Phone: COVID/INFLUENZAOrdered By: Bharathi Herring on 10-13-2024 FLUAV RNA DEENA+probe Ql (Nph) [...] and quality of specimen submitted for testing. [facility] SARS-CoV-2 (COVID-19) RNA DEENA+probe Ql (Unsp spec) Not detected Not Detected [facility] Comment on above: This assay was perfo rmed using Joyce DEQUAN RTPCR technology. [facility] COVID/INFLUENZAon 10-13-2024 INFLUENZA A Not detected Normal Not Detected [facility] Comment on above: Order Comment: Not D etected results are indicative of the absence of SARS-CoV-2 in the specimen submitted for testing. False negative results are possible based on the timing and quality of specimen submitted for testing. Result Comment: This assay was performed using [employer] DEQUAN RTPCR technology. Performed By: #### F CLINT/COVID ####[facility] [id number] [place] [id number] INFLUENZA B Not detected Normal Not Detected [facility] Comment on above: Order Comment: Not D etected results are indicative of the absence of SARS-CoV-2 in the specimen submitted for testing. False negative results are possible based on the timing and quality of specimen submitted for testing. Result Comment: This assay was performed using [employer] DEQUAN RTPCR technology. Performed By: #### F CLINT/COVID ####[facility] [id number] [facility] [place], [id number] SARS-CoV-2 (COVID-19) RNA DEENA+probe Ql (Unsp spec) Not detected Normal Not Detected [facility] Comment on above: Order Comment: Not D etected results are indicative of the absence of SARS-CoV-2 in the specimen submitted for testing. False negative results are possible based on the timing and quality of specimen submitted for testing. Result Comment: This assay was performed using [employer] DEQUAN RTPCR technology. Performed By: #### F CLINT/COVID ####[facility] [id number] [facility] , [id number] ED Provider Noteson 10-14-19 Emission Specialist Authentication Interface Message Text Normal [facility] Telephone Encounteron 2024 Emission Specialist Authentication Interface Message Text Normal [facility] Emission Specialist Authentication Interface Message Text Caller transferred to nurse for sx of(buzzword or buzzword situation)was hosptalized for pneumonia and concerned about lingering cough. Normal [facility] XR CHEST PA+LAT 2 VIEWSon XR CHEST PA+LAT 2 VIEWS Normal [facility] XR Chest PA and Lateralon EXAMINATION: [...] No pleural effusion. Stable cardiomegaly. MACRO: None [facility] Radiology Study observation (narrative) [facility] XR Chest PA and LateralOrder ed By: Deena Villeda on 10-13-2024 [facility] Work Phone: Telephone Encounteron 2024 Emission Specialist Authentication Interface Message Text Normal [facility] BASIC METABOLIC PANELon Anion gap [Moles/Vol] 15 mmol/L Normal 10-20 [facility] Comment on above: Performed By: #### P HOS, CH8, MG ####[facility] [id number] [place], Calcium [Mass/Vol] 8.2 mg/dL Low 8.6-10.3 [facility] Comment on above: Performed By: #### P HOS, CH8, MG ####[facility] [id number] [place], Chloride [Moles/Vol] 96 mmol/L Low 98-107 [facility] Comment on above: Performed By: #### P HOS, CH8, MG ####[facility] [id number] [place], CO2 [Moles/Vol] 27 mmol/L Normal 21-31 [facility] Comment on above: Performed By: #### P HOS, CH8, MG ####[facility] [id number] [place], Creatinine [Mass/Vol] 1.98 mg/dL High 0.70-1.30 [facility] Comment on above: Performed By: #### P HOS, CH8, MG ####[facility] [id number] [place], ESTIMATED GFR (CKD-EPI) 41 mL/min/1.73sqm Low >=60 [facility] Comment on above: Result Comment: 2020 [...] Inclusion of Race in Diagnosing Kidney Disease. [place] Journal of Kidney Diseases 2021;79(2):268-88.e1.2. N Engl J Med 2020 Vol. 385 Issue 19 Pages 7847-2360 Performed By: #### AUGUSTO CORDON, MG ####[facility] [id number] [place], Glucose [Mass/Vol] 105 mg/dL Normal 74-109 [facility] Comment on above: Performed By: #### AUGUSTO CORDON, MG ####[facility] [id number] [place], Potassium [Moles/Vol] 4.3 mmol/L Normal 3.5-5.0 [facility] Comment on above: Performed By: #### AUGUSTO CORDON, MG ####[facility] [id number] [place], Sodium [Moles/Vol] 134 mmol/L Low 136-145 [facility] Comment on above: Performed By: #### AUGUSTO CORDON, MG ####[facility] [id number] [place], Urea nitrogen [Mass/Vol] 52 mg/dL High 7-25 [facility] Comment on above: Performed By: #### AUGUSTO CORDON, MG ####[facility] [id number] [place], [place], Basic metabolic 2000 panelon 10-06-2024 Anion [...] Inclusion of Race in Diagnosing Kidney Disease. [place] Journal of Kidney Diseases 2021;79(2):268-88.e1. 2. N Engl J Med 2020 Vol. 385 Issue 19 Pages 9177-8783 Glucose [Mass/Vol] 105 mg/dL 74 - 109 [...] (Bld) [#/Vol] 0.03 10*3/uL Normal 0.00-0.20 [facility] Comment on above: Performed By: #### C BCDSAT ####S PATHOLOGY [id number] [place], Basophils/100 WBC (Bld) 0.3 % Normal <=1.9 [facility] Comment on above: Performed By: #### C BCDSAT ####S PATHOLOGY [id number] [place], Eosinophils (Bld) [#/Vol] 0.02 10*3/uL Normal 0.00-0.70 [facility] Comment on above: Performed By: #### C BCDSAT ####[facility] [id number] [place], Eosinophils/100 WBC (Bld) 0.2 % Normal 0.1-4.0 [facility] Comment on above: Performed By: #### C BCDSAT ####[facility] [id number] [place], Erythrocyte distribution width (RBC) [Ratio] 15.1 % High 11.5-14.5 [facility] Comment on above: Performed By: #### C BCDSAT ####[facility] [id number] [place], Hematocrit (Bld) [Volume fraction] 40.8 % Low 41.0-53.0 [facility] Comment on above: Performed By: #### C BCDSAT ####[facility] [id number] [place], Hemoglobin (Bld) [Mass/Vol] 13.8 g/dL Low 13.9-16.3 [facility] Comment on above: Performed By: #### C BCDSAT ####[facility] [id number] [place], Lymphocytes (Bld) [#/Vol] 2.34 10*3/uL Normal 1.00-4.80 [facility] Comment on above: Performed By: #### C BCDSAT ####[facility] [id number] [place], Lymphocytes/100 WBC (Bld) 28.5 % Normal 24.0-44.0 [facility] Comment on above: Performed By: #### C BCDSAT ####[facility] [id number] [place], MCH (RBC) [Entitic mass] 34.6 pg High 26.0-34.0 [facility] Comment on above: Performed By: #### C BCDSAT ####[facility] [id number] [place], MCHC (RBC) [Mass/Vol] 33.9 g/dL Normal 32.0-35.9 [facility] Comment on above: Performed By: #### C BCDSAT ####[facility] [id number] [place], MCV (RBC) [Entitic vol] 102 fL High 80-100 [facility] Comment on above: Performed By: #### C BCDSAT ####[facility] [id number] [place], Monocytes (Bld) [#/Vol] 0.72 10*3/uL Normal 0.20-1.00 [facility] Comment on above: Performed By: #### C BCDSAT ####[facility] [id number] [place], Monocytes/100 WBC (Bld) 8.7 % Normal 2.0-11.0 [facility] Comment on above: Performed By: #### C BCDSAT ####[facility] [id number] [place], Neutrophils (Bld) [#/Vol] 5.11 10*3/uL Normal 1.50-8.00 [facility] Comment on above: Performed By: #### C BCDSAT ####[facility] [id number] [place] [address], Neutrophils/100 WBC (Bld) 62.3 % Normal 31.0-76.0 [facility] Comment on above: Performed By: #### C BCDSAT ####[facility] [id number] [place], Platelet mean volume (Bld) [Entitic vol] 8.5 fL Normal 7.5-11.2 [facility] Comment on above: Performed By: #### C BCDSAT ####S PATHOLOGY [id number] [place], Platelets (Bld) [#/Vol] 206 10*3/uL Normal 150-400 [facility] Comment on above: Performed By: #### C BCDSAT ####S PATHOLOGY [id number] [place], RBC (Bld) [#/Vol] 4.00 10*6/uL Low 4.50-5.90 [facility] Comment on above: Performed By: #### C BCDSAT ####[facility] [id number] [place], WBC (Bld) [#/Vol] 8.2 10*3/uL Normal 4.5-11.5 [facility] Comment on above: Performed By: #### C BCDSAT ####S PATHOLOGY [id number] [place], LACTIC ACIDOrdered By: Connor Delacruz on 10-06-2024 Interpretation and review of laboratory results Abnormal [facility] Lactate [Moles/Vol] 2.4 mmol/L High 0.5 - 1. 6 mmol/L [facility] This test was developed, and its performance characteristics determined by the Department of Pathology of The [facility]. It has not been cleared or approved by the FDA. This test is used for clinical purposes only. [facility] LACTIC ACIDon 10-06-2024 CR LACT 2.4 mmol/L High 0.5-1.6 [facility] Comment on above: Order Comment: This test was developed, and its performance characteristics determined by the Department of Pathology of [facility]. It has not been cleared or approved by the FDA. This test is used for clinical purposes only. Performed By: #### L ACT ####[facility] [id number] [place], MAGNESIUMon 10-06-2024 Magnesium [Mass/Vol] 2.1 mg/dL 1.9 - 2 .7 mg/dL [facility] Magnesium [Mass/Vol] 2.1 mg/dL Normal 1.9-2.7 [facility] Comment on above: Performed By: #### P HOS, CH8, MG ####[facility] PATH[facility] [id number] [place], No Panel Informationon 10-06 Interpretation and review of laboratory results Normal [facility] PHOSPHORUSon 10-06-2024 Phosphate [Mass/Vol] 3.3 mg/dL 2.5 - 5 .0 mg/dL [facility] Phosphate [Mass/Vol] 3.3 mg/dL Normal 2.5-5.0 [facility] Comment on above: Performed By: #### P HOS CHGissel MG ####[facility] [id number] [place], Progress Noteson 10-06-2024 Emission Specialist Authentication Interface Message Text 10/06/2024 - Patient given AM medications. Patient spit out medications. Patient states that he has bad kidneys and medications make him sick. This RN educated on the importance of the medication. MD notified. Normal [facility] [employer] [facility] Emission Specialist Authentication Interface Message Text Normal [facility] Emission Specialist Authentication Interface Message Text Normal [facility] BASIC METABOLIC PANELon Anion gap [Moles/Vol] 19 mmol/L Normal 10-20 [facility] Comment on above: Performed By: #### Kelly H8, PHOS, MG ####[facility] [id number] [place], Calcium [Mass/Vol] 8.1 mg/dL Low 8.6-10.3 [facility] Comment on above: Performed By: #### Kelly H8 PHOS, MG ####[facility] [id number] [place], Chloride [Moles/Vol] 97 mmol/L Low 98-107 [facility] Comment on above: Performed By: #### C H8, PHOS, MG ####[facility] [id number] [place], CO2 [Moles/Vol] 23 mmol/L Normal 21-31 [facility] Comment on above: Performed By: #### C H8, PHOS, MG ####[facility] [id number] [place], Creatinine [Mass/Vol] 2.18 mg/dL High 0.70-1.30 [facility] Comment on above: Performed By: #### C H8, PHOS, MG ####[facility] [id number] [place], ESTIMATED GFR (CKD-EPI) 37 mL/min/1.73sqm Low >=60 [facility] Comment on above: Result Comment: 2020 CKD EPI Equation using Creatinine without RaceComment: Estimated glomerular filtration rate (eGFR) is calculated without a race coefficient. Values should be interpreted in the context of the patient's full clinical presentation.Reference:1. Berny Mendoza, Melonie M, Alecia DC, et al.. A Unifying Approach for GFR Estimation: Recommendations of the NKF-ASN Task Force on Reassessing the Inclusion of Race in Diagnosing Kidney Disease. [place] Journal of Kidney Diseases 202;79(2):268-88.e1.2. N Engl J Med 2020 Vol. 385 Issue 19 Pages 8966-5219 Performed By: #### ASHLEIGH Short MG ####[facility] [id number] [place], Glucose [Mass/Vol] 124 mg/dL High 74-109 [facility] Comment on above: Performed By: #### ASHLEIGH Short MG ####[facility] [id number] [place], Potassium [Moles/Vol] 4.8 mmol/L Normal 3.5-5.0 [facility] Comment on above: Performed By: #### ASHLEIGH Short MG ####[facility] [id number] [place], Sodium [Moles/Vol] 134 mmol/L Low 136-145 [facility] Comment on above: Performed By: #### ASHLEIGH Short MG ####[facility] [id number] [place], Urea nitrogen [Mass/Vol] 51 mg/dL High 7-25 [facility] Comment on above: Performed By: #### ASHLEIGH Short MG ####[facility] [id number] [place], Basic metabolic 2000 panelon 10-05-2024 Anion [...] Inclusion of Race in Diagnosing Kidney Disease. [place] Journal of Kidney Diseases 2021;79(2):268-88.e1. 2. N Engl J Med 1 Vol. 385 Issue 19 Pages 3198-8477 Glucose [Mass/Vol] 124 mg/dL High 74 - [...] vol] 8.2 fL 7.5 - 11.2 fL [facility] Platelets (Bld) [#/Vol] 195 10*3/uL 150 - 400 K/uL [facility] RBC (Bld) [#/Vol] 3.83 10*6/uL Low [facility] WBC (Bld) [#/Vol] 9.2 10*3/uL 4.5 - 11.5 K/uL [facility] CBC WITH DIFFERENTIALon Erythrocyte distribution width (RBC) [Ratio] 15.2 % High 11.5-14.5 [facility] Comment on above: Performed By: #### GILBERTO JARRETT ####[facility] [id number] [place], Hematocrit (Bld) [Volume fraction] 39.7 % Low 41.0-53.0 [facility] Comment on above: Performed By: ###GILBERTO COLLADO ####S PATHOLOGY [id number] [place], Hemoglobin (Bld) [Mass/Vol] 13.3 g/dL Low 13.9-16.3 [facility] Comment on above: Performed By: ###GILBERTO COLLADO ####S PATHOLOGY [id number] [place], MCH (RBC) [Entitic mass] 34.7 pg High 26.0-34.0 [facility] Comment on above: Performed By: ###GILBERTO COLLADO ####S PATHOLOGY [id number] [place], MCHC (RBC) [Mass/Vol] 33.4 g/dL Normal 32.0-35.9 [facility] Comment on above: Performed By: ###GILBERTO COLLADO ####S PATHOLOGY [id number] [place], MCV (RBC) [Entitic vol] 104 fL High 80-100 [facility] Comment on above: Performed By: #### GILBERTO JARRETT ####[facility] [id number] [place], Platelet mean volume (Bld) [Entitic vol] 8.2 fL Normal 7.5-11.2 [facility] Comment on above: Performed By: ###GILBERTO COLLADO ####S PATHOLOGY [id number] [place], Platelets (Bld) [#/Vol] 195 10*3/uL Normal 150-400 [facility] Comment on above: Performed By: ###GILBERTO COLLADO ####S PATHOLOGY [id number] [place], RBC (Bld) [#/Vol] 3.83 10*6/uL Low 4.50-5.90 [facility] Comment on above: Performed By: ###GILBERTO COLLADO ####S PATHOLOGY [id number] [place], WBC (Bld) [#/Vol] 9.2 10*3/uL Normal 4.5-11.5 [facility] Comment on above: Performed By: ###GILBERTO COLLADO ####[facility] [id number] [place], Consultson 10-05-2024 Emission Specialist Authentication Interface Message Text Normal [facility] LACTIC ACIDOrdered By: Daniel Vera on 10-05-2024 Interpretation and review of laboratory results Abnormal [facility] Lactate [Moles/Vol] 3.5 mmol/L Critically high 0.5 - 1.6 mmol/L [facility] This test was developed, and its performance characteristics determined by the Department of Pathology of [facility]. It has not been cleared or approved by the FDA. This test is used for clinical purposes only. [facility] LACTIC ACIDon 10-05-2024 CR LACT 3.5 mmol/L Critically high 0.5-1.6 [facility] Comment on above: Order Comment: This test was developed, and its performance characteristics determined by the Department of Pathology of [facility]. It has not been cleared or approved by the FDA. This test is used for clinical purposes only. Performed By: #### L ACT ####[facility] [id number] [place], Laboratory - Microbiology an d Antimicrobial susceptibilityon 10-05-2024 Bacteria identified Cx Nom (Bld) No Growth [facility] MAGNESIUMon 10-05-2024 Magnesium [Mass/Vol] 2.1 mg/dL 1.9 - 2 .7 mg/dL [facility] Magnesium [Mass/Vol] 2.1 mg/dL Normal 1.9-2.7 [facility] Comment on above: Performed By: #### C ASHLEIGH Simon, MG ####[facility] [id number] [place], MANUAL DIFF AND MORPHon Patsy cells LM Ql (Bld) Few Me [facility] Cells Counted Total (Bld) [#] 100 {cells} [facility] Dacrocytes LM Ql (Bld) Few [facility] Lymphocytes (Bld) [#/Vol] 1.56 10*3/uL 1.00 - 4.80 K/uL [facility] Lymphocytes/100 WBC (Bld) 17 % Low 24.0 - 44.0 % [facility] Macrocytes Ql (Bld) Slight [facility] Monocytes (Bld) [#/Vol] 0.64 10*3/uL 0.20 [...] Few [facility] PATSY CELLS Few Normal [facility] Comment on above: Performed By: #### C MD BÁRBARAIFF ####[facility] [id number] [place], CELLS COUNTED TOTAL # IN BLOOD 100 Normal [facility] Comment on above: Performed By: #### GILBERTO JARRETT ####[facility] [id number] [place], FRAGMENTED RBC Few Normal [facility] Comment on above: Performed By: #### GILBERTO JARRETT ####[facility] [id number] [place], LYMPHOCYTES % BY MANUAL COUNT 17.0 % Low 24.0-44.0 [facility] Comment on above: Performed By: #### GILBERTO JARRETT ####S PATHOLOGY [id number] [place], LYMPHOCYTES ABS BY MANUAL COUNT 1.56 K/uL Normal 1.00-4.80 [facility] Comment on above: Performed By: #### GILBERTO JARRETT ####[facility] [id number] [place], MACROCYTOSIS Slight Normal [facility] Comment on above: Performed By: #### GILBERTO JARRETT ####[facility] [id number] [place], MONOCYTES % BY MANUAL COUNT 7.0 % Normal 2.0-11.0 [facility] Comment on above: Performed By: #### GILBERTO JARRETT ####S PATHOLOGY [id number] [place], MONOCYTES ABS BY MANUAL COUNT 0.64 K/uL Normal 0.20-1.00 [facility] Comment on above: Performed By: #### GILBERTO JARRETT ####S PATHOLOGY [id number] [place], NEUTROPHILS % BY MANUAL COUNT 76.0 % Normal 31.0-76.0 [facility] Comment on above: Performed By: #### GILBERTO JARRETT ####[facility] [id number] [place], NEUTROPHILS ABS BY MANUAL COUNT 6.99 K/uL Normal 1.50-8.00 [facility] Comment on above: Performed By: #### GILBERTO JARRETT ####[facility] [id number] [place], OVALOCYTES Few Normal [facility] Comment on above: Performed By: #### GILBERTO JARRETT ####[facility] [id number] [place], POLYCHROMASIA Slight Normal [facility] Comment on above: Performed By: #### GILBERTO JARRETT ####[facility] [id number] [place], TEARDROP CELLS Few Normal [facility] Comment on above: Performed By: #### GILBERTO JARRETT ####S PATHOLOGY [id number] [place], No Panel Informationon 10-05 Interpretation and review of laboratory results Normal [facility] Interpretation and review of laboratory results Abnormal [facility] Interpretation and review of laboratory results Normal [facility] PARTIAL THROMBOPLASTIN TIMEo n 10-05-2024 aPTT Coag (Bld) [Time] 30 s [facility] Interpretation and review of laboratory results [facility] aPTT Coag (Bld) [Time] 30 s Normal 25-37 Th e [facility] Comment on above: Performed By: #### A PTT ####S PATHOLOGY [id number] [place], PHOSPHORUSon 10-05-2024 Phosphate [Mass/Vol] 3.9 mg/dL 2.5 - 5 .0 mg/dL [facility] Phosphate [Mass/Vol] 3.9 mg/dL Normal 2.5-5.0 [facility] Comment on above: Performed By: #### C H8, PHOS, MG ####[facility] [id number] [place], Progress Noteson 10-05-2024 Emission Specialist Authentication Interface Message Text Report received from amirah evans. Care assumed att Normal [facility] Emission Specialist Authentication Interface Message Text Normal [facility] Emission Specialist Authentication Interface Message Text Normal [facility] Emission Specialist Authentication Interface Message Text /GREG PALACIOS notified of critical Lactate value of 3.5. /GREG PALACIOS read back critical results. New orders not received. Normal [facility] Emission Specialist Authentication Interface Message Text Patient refuses labs this morning. aware Normal [facility] Progress Notes - NoteWritero n 10-05-2024 Emission Specialist Authentication Interface Message Text Normal [facility] Discharge Planning Noteon Emission Specialist Authentication Interface Message Text Normal [facility] Disruptive Behavior Progress Noteon 10-04-2024 Emission Specialist Authentication Interface Message Text Normal [facility] Progress Noteson 10-04-2024 Emission Specialist Authentication Interface Message Text Normal [facility] Emission Specialist Authentication Interface Message Text Normal [facility] Emission Specialist Authentication Interface Message Text Normal [facility] Progress Notes - NoteWritero n 10-04-2024 Emission Specialist Authentication Interface Message Text 12:30 AM Patient refusing labs at this time Normal [facility] Transfer Noteon 10-04-2024 Emission Specialist Authentication Interface Message Text Normal [facility] Consultson 10-03-2024 Emission Specialist Authentication Interface Message Text Normal [facility] Emission Specialist Authentication Interface Message Text Normal [facility] Disruptive Behavior Progress Noteon 10-03-2024 Emission Specialist Authentication Interface Message Text Normal [facility] Emission Specialist Authentication Interface Message Text Normal [facility] Emission Specialist Authentication Interface Message Text Normal [facility] Emission Specialist Authentication Interface Message Text Normal [facility] Progress Noteson 10-03-2024 Emission Specialist Authentication Interface Message Text Normal [facility] Progress Notes - NoteWritero n 10-03-2024 Emission Specialist Authentication Interface Message Text 12:58 AM Unable to obtain lab work due to lack of access, patient is difficult stick and refusing peripheral sticks. Normal [facility] BASIC METABOLIC PANELon 04-0 Anion gap [Moles/Vol] 17 mmol/L Normal 10-20 [facility] Comment on above: Performed By: #### ASHLEIGH Arauz, CH8 ####[facility] [id number] [place], [id number] Calcium [Mass/Vol] 8.2 mg/dL Low 8.6-10.3 [facility] Comment on above: Performed By: #### M Carmen PHOS, CH8 ####[facility] [id number] [place], Chloride [Moles/Vol] 100 mmol/L Normal 98-107 [facility] Comment on above: Performed By: #### ASHLEIGH Arauz CH8 ####[facility] [id number] [place], CO2 [Moles/Vol] 21 mmol/L Normal 21-31 [facility] Comment on above: Performed By: #### ASHLEIGH Arauz CH8 ####[facility] [id number] [place], Creatinine [Mass/Vol] 2.51 mg/dL High 0.70-1.30 [facility] Comment on above: Performed By: #### ASHLEIGH Arauz CH8 ####S PATHOLOGY [id number] [place], ESTIMATED GFR (CKD-EPI) 31 mL/min/1.73sqm Low >=60 [facility] Comment on above: Result Comment: 2020 [...] Inclusion of Race in Diagnosing Kidney Disease. [place] Journal of Kidney Diseases 2021;79(2):268-88.e1.2. N Engl J Med 2020 Vol. 385 Issue 19 Pages 9934-4866 Performed By: #### ASHLEIGH Arauz CH8 ####[facility] [id number] [place], Glucose [Mass/Vol] 182 mg/dL High 74-109 [facility] Comment on above: Performed By: #### ASHLEIGH Arauz CH8 ####[facility] [id number] [place], Potassium [Moles/Vol] 4.1 mmol/L Normal 3.5-5.0 [facility] Comment on above: Performed By: #### Nichole ASHLEIGH Morales CH8 ####[facility] [id number] [place], Sodium [Moles/Vol] 134 mmol/L Low 136-145 [facility] Comment on above: Performed By: #### ASHLEIGH Arauz CH8 ####[facility] [id number] [place], Urea nitrogen [Mass/Vol] 45 mg/dL High 7-25 [facility] Comment on above: Performed By: #### ASHLEIGH Arauz CH8 ####[facility] [id number] [place], Basic metabolic 2000 panelon 10-02-2024 Anion gap [Moles/Vol] 17 mmol/L 10 - 20 [facility] Calcium [Mass/Vol] 8.2 mg/dL Low 8.6 - [...] Inclusion of Race in Diagnosing Kidney Disease. [place] Journal of Kidney Diseases 202;79(2):268-88.e1. 2. N Engl J Med 2020 Vol. 385 Issue 19 Pages 2536-3515 Glucose [Mass/Vol] 182 mg/dL High 74 - 109 mg/dL [facility] Interpretation and review of laboratory results Abnormal [facility] Potassium [Moles/Vol] 4.1 mmol/L 3.5 - 5.0 mmol/L [facility] Sodium [Moles/Vol] 134 mmol/L Low 136 - 145 mmol/L [facility] Urea nitrogen [Mass/Vol] 45 mg/dL High 7 - 25 mg/dL [facility] CBC panel Auto (Bld)on 10-02 Erythrocyte [...] [#/Vol] 212 10*3/uL 150 - 400 K/uL [facility] RBC (Bld) [#/Vol] 3.82 10*6/uL Low [facility] WBC (Bld) [#/Vol] 12.4 10*3/uL High 4.5 - 11.5 K/uL [facility] COMPLETE BLOOD COUNTon 10-02 Erythrocyte distribution width (RBC) [Ratio] 14.5 % Normal 11.5-14.5 [facility] Comment on above: Performed By: #### C BC ####S PATHOLOGY [id number] [place] [address], Hematocrit (Bld) [Volume fraction] 39.1 % Low 41.0-53.0 [facility] Comment on above: Performed By: #### C BC ####S PATHOLOGY [id number] [place], Hemoglobin (Bld) [Mass/Vol] 13.2 g/dL Low 13.9-16.3 [facility] Comment on above: Performed By: #### C BC ####[facility] [id number] [place], MCH (RBC) [Entitic mass] 34.5 pg High 26.0-34.0 [facility] Comment on above: Performed By: #### C BC ####[facility] [id number] [place], MCHC (RBC) [Mass/Vol] 33.7 g/dL Normal 32.0-35.9 [facility] Comment on above: Performed By: #### C BC ####[facility] [id number] [place], MCV (RBC) [Entitic vol] 102 fL High 80-100 [facility] Comment on above: Performed By: #### C BC ####[facility] [id number] [place], Platelet mean volume (Bld) [Entitic vol] 8.2 fL Normal 7.5-11.2 [facility] Comment on above: Performed By: #### C BC ####[facility] [id number] [place], Platelets (Bld) [#/Vol] 212 10*3/uL Normal 150-400 [facility] Comment on above: Performed By: #### C BC ####[facility] [id number] [place], RBC (Bld) [#/Vol] 3.82 10*6/uL Low 4.50-5.90 [facility] Comment on above: Performed By: #### C BC ####[facility] [id number] [place], WBC (Bld) [#/Vol] 12.4 10*3/uL High 4.5-11.5 [facility] Comment on above: Performed By: #### C BC ####S PATHOLOGY [id number] [place], Consultson 10-02-2024 Emission Specialist Authentication Interface Message Text Normal [facility] Emission Specialist Authentication Interface Message Text Normal [facility] Diabetes tracking panelOrder ed By: Arvind Smith on 10-02-2024 Average glucose Estimated from glycated hemoglobin (Bld) [Mass/Vol] 128 mg/dL [facility] HbA1c (Bld) [Mass fraction] 6.1 % High 4.0 - 5.6 % [facility] Interpretation and review of laboratory results Abnormal [facility] Disruptive Behavior Progress Noteon 10-02-2024 Emission Specialist Authentication Interface Message Text Normal [facility] Emission Specialist Authentication Interface Message Text Normal [facility] Emission Specialist Authentication Interface Message Text Normal [facility] Emission Specialist Authentication Interface Message Text Normal [facility] Emission Specialist Authentication Interface Message Text Normal [facility] E[facility] 12 LEAD - PERFORMon Diagnosis Poor data quality, interpretation may be adversely affected Sinus tachycardia Nonspecific intraventricular block Abnormal ECG When compared with ECG of 06-SEP-2024 15:21, change in axis- possible lead placement abnormality Confirmed by Juan BAKER KATHLEEN ([id number]) on 10/02/2024 11:02:35 AM [facility] P wave [facility] by EKG 112 BPM [facility] P wave axis 79 degrees [facility] P-R Interval 142 ms [facility] Q-T interval 382 ms [facility]T interval corrected 521 ms [facility] QRS axis 218 degrees [facility] QRS duration 152 ms [facility] T wave axis -58 degrees [facility] LACTIC ACIDOrdered By: Megan Mcgill on 10-02-2024 Interpretation and review of laboratory results Abnormal [facility] Lactate [Moles/Vol] 2 mmol/L High 0.5 - 1. 6 mmol/L [facility] This test was developed, and its performance characteristics determined by the Department of Pathology of [facility]. It has not been cleared or approved by the FDA. This test is used for clinical purposes only. [facility] LACTIC ACIDon 10-02-2024 CR LACT 2.0 mmol/L High 0.5-1.6 [facility] Comment on above: Order Comment: This test was developed, and its performance characteristics determined by the Department of Pathology of [facility]. It has not been cleared or approved by the FDA. This test is used for clinical purposes only. Performed By: #### L ACT ####S PATHOLOGY [id number] [place], [place], MAGNESIUMon 10-02-2024 Magnesium [Mass/Vol] 1.9 mg/dL 1.9 - 2 .7 mg/dL [facility] Magnesium [Mass/Vol] 1.9 mg/dL Normal 1.9-2.7 [facility] Comment on above: Performed By: #### ASHLEIGH Arauz CH8 ####[facility] [id number] [place], [place], No Panel Informationon 10-02 Interpretation and review of laboratory results Normal [facility] PARTIAL THROMBOPLASTIN TIMEo n 10-02-2024 aPTT Coag (Bld) [Time] 28 s [facility] Interpretation and review of laboratory results Normal [facility] aPTT Coag (Bld) [Time] 28 s Normal 25-37 Th e [facility] Comment on above: Performed By: #### A PTT ####[facility] [id number] [place], PHOSPHORUSon 10-02-2024 Phosphate [Mass/Vol] 4.2 mg/dL 2.5 - 5 .0 mg/dL [facility] Phosphate [Mass/Vol] 4.2 mg/dL Normal 2.5-5.0 [facility] Comment on above: Performed By: #### ASHLEIGH Arauz CH8 ####[facility] PATH[facility] [id number] [place], [place], Procedureson 10-02-2024 Emission Specialist Authentication Interface Message Text Normal [facility] Progress Noteson 10-02-2024 Emission Specialist Authentication Interface Message Text Normal [facility] Emission Specialist Authentication Interface Message Text Normal [facility] Emission Specialist Authentication Interface Message Text Patient refusing to be hooked to any IV medications. Physicians made aware of patient's refusal. (Heparin and IV ABX) Normal [facility] Emission Specialist Authentication Interface Message Text Patient unhooked self [...] images and agree with the resident's interpretation. [facility] Sammi Brothers MD - 10/02/2024 EXAMINATION: XR [...] Continued follow-up exam is recommended. MACRO: None [facility] Study observation (narrative) [facility] Study observation (narrative) [facility] XR Chest Single viewOrdered By: Francisca Coronado on 10-02-2024 [facility] Work Phone: XR Chest Single viewOrdered By: Sammi Brothers on 10-02-2024 [facility] Work Phone: BASIC METABOLIC PANELon 04-0 Anion gap [Moles/Vol] 19 mmol/L Normal 10-20 [facility] Comment on above: Performed By: #### C H8, HDL, MG, PHOS ####[facility] [id number] [place], Calcium [Mass/Vol] 8.4 mg/dL Low 8.6-10.3 [facility] Comment on above: Performed By: #### C H8, HDL, MG, PHOS ####[facility] [id number] [place], Chloride [Moles/Vol] 104 mmol/L Normal 98-107 [facility] Comment on above: Performed By: #### C H8, HDL, MG, PHOS ####[facility] [id number] [place], CO2 [Moles/Vol] 20 mmol/L Low 21-31 [facility] Comment on above: Performed By: #### C H8, HDL, MG, PHOS ####[facility] [id number] [place], Creatinine [Mass/Vol] 2.33 mg/dL High 0.70-1.30 [facility] Comment on above: Performed By: #### C H8, HDL, MG, PHOS ####[facility] [id number] [place], ESTIMATED GFR (CKD-EPI) 34 mL/min/1.73sqm Low >=60 [facility] Comment on above: Result Comment: 2020 [...] Inclusion of Race in Diagnosing Kidney Disease. [place] Journal of Kidney Diseases 202;79(2):268-88.e1.2. N Engl J Med 2021 Vol. 385 Issue 19 Pages 9702-1869 Performed By: #### C H8, HDL, MG, PHOS ####[facility] [id number] [place], Glucose [Mass/Vol] 151 mg/dL High 74-109 [facility] Comment on above: Performed By: #### C H8, HDL, MG, PHOS ####[facility] [id number] [place], Potassium [Moles/Vol] 4.5 mmol/L Normal 3.5-5.0 [facility] Comment on above: Performed By: #### C H8, HDL, MG, PHOS ####[facility] [id number] [place], Sodium [Moles/Vol] 138 mmol/L Normal 136-145 [facility] Comment on above: Performed By: #### C H8, HDL, MG, PHOS ####[facility] [id number] [place], Urea nitrogen [Mass/Vol] 41 mg/dL High 7-25 [facility] Comment on above: Performed By: #### C H8, HDL, MG, PHOS ####[facility] [id number] [place], [place], Basic metabolic 2000 panelon 10-01-2024 Anion gap [Moles/Vol] 19 mmol/L 10 - 20 Met [facility] Calcium [Mass/Vol] 8.4 mg/dL Low 8.6 [...] Inclusion of Race in Diagnosing Kidney Disease. [place] Journal of Kidney Diseases 2021;79(2):268-88.e1. 2. N Engl J Med 1 Vol. 385 Issue 19 Pages 5124-2696 Glucose [Mass/Vol] 151 mg/dL High 74 - [...] [#/Vol] 10.9 10*3/uL 4.5 - 11.5 K/uL [facility] CBC WITH DIFFERENTIALon Erythrocyte distribution width (RBC) [Ratio] 14.9 % High 11.5-14.5 [facility] Comment on above: Performed By: #### GILBERTO JARRETT ####[facility] [id number] [place] [address], #### HB A1C ####[facility] [address] [place] [address], Hematocrit (Bld) [Volume fraction] 42.8 % Normal 41.0-53.0 [facility] Comment on above: Performed By: #### GILBERTO JARRETT ####[facility] [id number] [place] [address], #### HB A1C ####[facility] [address] [place] [address], Hemoglobin (Bld) [Mass/Vol] 14.2 g/dL Normal 13.9-16.3 [facility] Comment on above: Performed By: #### GILBERTO JARRETT ####[facility] [id number] [place] [address], #### HB A1C ####[facility] [address] [place] [address], MCH (RBC) [Entitic mass] 34.6 pg High 26.0-34.0 [facility] Comment on above: Performed By: #### GILBERTO JARRETT ####[facility] [id number] [place] [address], #### HB A1C ####[facility] [address] [place] [address], MCHC (RBC) [Mass/Vol] 33.2 g/dL Normal 32.0-35.9 [facility] Comment on above: Performed By: #### GILBERTO JARRETT ####[facility] [id number] [place] [address], #### HB A1C ####[facility] [address] [place] [address], MCV (RBC) [Entitic vol] 104 fL High 80-100 [facility] Comment on above: Performed By: ###GILBERTO COLLADO ####[facility] [id number] [place] [address], #### HB A1C ####[facility] [address] [place], [place], Platelet mean volume (Bld) [Entitic vol] 8.5 fL Normal 7.5-11.2 [facility] Comment on above: Performed By: #### GILBERTO JARRETT ####[facility] [id number] [place] [address], #### HB A1C ####[facility] [address] [place], [place], Platelets (Bld) [#/Vol] 227 10*3/uL Normal 150-400 [facility] Comment on above: Performed By: #### GILBERTO JARRETT ####[facility] [id number] [place] [address], #### HB A1C ####[facility] [address] [place], [place], RBC (Bld) [#/Vol] 4.11 10*6/uL Low 4.50-5.90 [facility] Comment on above: Performed By: #### GILBERTO JARRETT ####[facility] [id number] [place] [address], #### HB A1C ####[facility] [address] [place], [place], WBC (Bld) [#/Vol] 10.9 10*3/uL Normal 4.5-11.5 [facility] Comment on above: Performed By: ###GILBERTO COLLADO ####[facility] [id number] [place] [address], #### HB A1C ####[facility] [address] [place], [place], FULL LIPID PROFILEon 025 Cholesterol [Mass/Vol] 152 mg/dL Normal <200 Th [facility] Comment on above: Result Comment: Michaela rable: < 200 mg/dLBorderline High: 200-239 mg/dLHigh: > = 240 mg/dL Performed By: #### C H8, HDL, MG, PHOS ####[facility] [id number] [place], Cholesterol in LDL [Mass/Vol] 127 mg/dL High <100 [facility] Comment on above: Performed By: #### C H8, HDL, MG, PHOS ####[facility] [id number] [place], Cholesterol.total/Chol esterol in HDL [Mass ratio] 9.50 {ratio} High <5.00 [facility] Comment on above: Performed By: #### C H8, HDL, MG, PHOS ####[facility] [id number] [place], HDL CHOL 16 mg/dL Low >40 [facility] Comment on above: Performed By: #### C H8, HDL, MG, PHOS ####[facility] [id number] [place], LDL/HDL 7.94 High <3.57 [facility] Comment on above: Performed By: #### C H8, HDL, MG, PHOS ####[facility] [id number] [place], NON-HDL CHOLESTEROL 136 mg/dL High <130 [facility] Comment on above: Performed By: #### C H8, HDL, MG, PHOS ####[facility] [id number] [place], Triglyceride [Mass/Vol] 66 mg/dL Normal <150 [facility] Comment on above: Result Comment: Norm al: < 150 mg/dLBorderline High: 150-199 mg/dLHigh: 200-499 mg/dLVery High: > = 500 mg/dL Performed By: #### C H8, HDL, MG, PHOS ####[facility] [id number] [place], H AND Timo 10-01-2024 Emission Specialist Authentication Interface Message Text Normal [facility] HEMOGLOBIN A1Con 10-01-2024 Glucose [Mass/Vol] 128 mg/dL Normal [facility] Comment on above: Performed By: #### GILBERTO JARRETT ####S PATHOLOGY [id number] [place], #### HB A1C ####[facility] [address] [place], [address] HbA1c (Bld) [Mass fraction] 6.1 % High 4.0-5.6 [facility] Comment on above: Performed By: #### C GILBERTO GRANGER ####[facility] [id number] [place], #### HB A1C ####[facility] [address] [place], [address] LACTIC ACIDOrdered By: Laura Michaud on 10-01-2024 Interpretation and review of laboratory results Abnormal [facility] Lactate [Moles/Vol] 5 mmol/L Critically high 0.5 - 1.6 mmol/L [facility] This test was developed, and its performance characteristics determined by the Department of Pathology of [facility]. It has not been cleared or approved by the FDA. This test is used for clinical purposes only. [facility] LACTIC ACIDon 10-01-2024 CR LACT 5.0 mmol/L Critically high 0.5-1.6 [facility] Comment on above: Order Comment: This test was developed, and its performance characteristics determined by the Department of Pathology of [facility]. It has not been cleared or approved by the FDA. This test is used for clinical purposes only. Performed By: #### L ACT ####[facility] [id number] [place], CR LACT 3.5 mmol/L Critically high 0.5-1.6 [facility] Comment on above: Order Comment: This test was developed, and its performance characteristics determined by the Department of Pathology of [facility]. It has not been cleared or approved by the FDA. This test is used for clinical purposes only. Performed By: #### L ACT ####[facility] [id number] [place], LACTIC ACIDOrdered By: Asia Xie on 10-01-2024 Interpretation and review of laboratory results Abnormal [facility] Lactate [Moles/Vol] 3.5 mmol/L Critically high 0.5 - 1.6 mmol/L [facility] This test was developed, and its performance characteristics determined by the Department of Pathology of [facility]. It has not been cleared or approved by the FDA. This test is used for clinical purposes only. [facility] Lipid 1996 panelon Cholesterol [Mass/Vol] 152 mg/dL NINF - 200 mg/dL [facility] Comment on above: Desirable: < 200 mg/ [...] ratio] 9.5 {ratio} High NINF - 5.00 [facility] Interpretation and review of laboratory results Abnormal [facility] Triglyceride [Mass/Vol] 66 mg/dL NINF - 150 mg/dL [facility] Comment on above: Normal: < 150 mg/dL Borderline High: 150-199 mg/dL High: 200-499 mg/dL Very High: > = 500 mg/dL [facility] MAGNESIUMon 10-01-2024 Magnesium [Mass/Vol] 2 mg/dL 1.9 - 2 .7 mg/dL [facility] Magnesium [Mass/Vol] 2.0 mg/dL Normal 1.9-2.7 [facility] Comment on above: Performed By: #### C H8, HDL, MG, PHOS ####[facility] [id number] [place], MANUAL DIFF AND MORPHon Cells Counted [...] TOTAL # IN BLOOD 100 Normal [facility] Comment on above: Performed By: #### GILBERTO JARRETT ####[facility] [id number] [place] [address], #### HB A1C ####[facility] [address] [place], [address] LYMPHOCYTES % BY MANUAL COUNT 19.0 % Low 24.0-44.0 [facility] Comment on above: Performed By: #### GILBERTO JARRETT ####[facility] [id number] [place] [address], #### HB A1C ####[facility] [address] [place], [address] LYMPHOCYTES ABS BY MANUAL COUNT 2.07 K/uL Normal 1.00-4.80 [facility] Comment on above: Performed By: #### GILBERTO JARRETT ####[facility] [id number] [place] [address], #### HB A1C ####[facility] [address] [place], [address] MONOCYTES % BY MANUAL COUNT 4.0 % Normal 2.0-11.0 [facility] Comment on above: Performed By: #### GILBERTO JARRETT ####[facility] [id number] [place] [address], #### HB A1C ####[facility] [address] [place], [address] MONOCYTES ABS BY MANUAL COUNT 0.44 K/uL Normal 0.20-1.00 [facility] Comment on above: Performed By: #### GILBERTO JARRETT ####[facility] [id number] [place] [address], #### HB A1C ####[facility] [address] [place], [address] NEUTROPHILS % BY MANUAL COUNT 77.0 % High 31.0-76.0 [facility] Comment on above: Performed By: #### GILBERTO JARRETT ####[facility] [id number] [place] [address], #### HB A1C ####[facility] [address] [place], [place], NEUTROPHILS ABS BY MANUAL COUNT 8.39 K/uL High 1.50-8.00 [facility] Comment on above: Performed By: #### GILBERTO JARRETT ####[facility] [id number] [place] [address], #### HB A1C ####[facility] [address] [place], [place], RBC MORPHOLOGY Normal Normal [facility] Comment on above: Performed By: #### GILBERTO JARRETT ####[facility] [id number] [place] [address], #### HB A1C ####[facility] [address] [place], [address] No Panel InformationOrdered By: Carla Garcia on 10-01-2024 Interpretation and review of laboratory results Abnormal [facility] No Panel Informationon 10-01 Interpretation and review of laboratory results Normal [facility] PHOSPHORUSon 10-01-2024 Phosphate [Mass/Vol] 4.9 mg/dL 2.5 - 5 .0 mg/dL [facility] Phosphate [Mass/Vol] 4.9 mg/dL Normal 2.5-5.0 [facility] Comment on above: Performed By: #### C H8, HDL, MG, PHOS ####[facility] [id number] [place], [address] Progress Noteson 10-01-2024 Emission Specialist Authentication Interface Message Text 1540: Critical lactate of 5.0, provider made aware. 1724: Rapid response RN notified of pending transfer to ICU. Vital signs stable, pt comfortable and cooperative, no concerns at this time. Normal [facility] Emission Specialist Authentication Interface Message Text Dr. Hutchinson notified of critical Lactate value of 3.5. Dr. Hutchinson read back critical results. New orders not received. Normal [facility] B TYPE NATRIURETIC PEPTIDEon 09-30-2024 Interpretation and review of laboratory results Abnormal [facility] Natriuretic peptide B (Bld) [Mass/Vol] 6470 pg/mL High NINF - 100.0 pg/mL [facility] Natriuretic peptide B (Bld) [Mass/Vol] 6470.0 pg/mL High <100.0 [facility] Comment on above: Performed By: #### B PL ####[facility] [place] [facility] [id number] [place] , [id number] BASIC METABOLIC PANELon Anion gap [Moles/Vol] 17 mmol/L Normal 10-20 [facility] Comment on above: Performed By: #### M G, HEPATIC, CH8, LIP ####[facility] [place] [facility] [id number] [place], [id number] Calcium [Mass/Vol] 9.4 mg/dL Normal 8.6-10.3 [facility] Comment on above: Performed By: #### M G, HEPATIC, CH8, LIP ####[facility] [place] [facility] [id number] [place], [id number] Chloride [Moles/Vol] 98 mmol/L Normal 98-107 [facility] Comment on above: Performed By: #### M G, HEPATIC, CH8, LIP ####[facility] [place] [facility] [id number] [place] , [id number] CO2 [Moles/Vol] 23 mmol/L Normal 21-31 [facility] Comment on above: Performed By: #### M G, HEPATIC, CH8, LIP ####[facility] [place] [facility] [id number] [facility] , [id number] Creatinine [Mass/Vol] 2.64 mg/dL High 0.70-1.30 [facility] Comment on above: Performed By: #### M G, HEPATIC, CH8, LIP ####[facility] [place] [facility] [id number] [facility] , [id number] ESTIMATED GFR (CKD-EPI) 29 mL/min/1.73sqm Low >=60 [...] Inclusion of Race in Diagnosing Kidney Disease. [place] Journal of Kidney Diseases 2021;79(2):268-88.e1.2. N Engl J Med 1 Vol. 385 Issue 19 Pages 5335-0428 Performed By: #### M G, HEPATIC, CH8, LIP ####[facility] [place] [facility] [id number] [facility] , [id number] Glucose [Mass/Vol] 189 mg/dL High 74-109 [facility] Comment on above: Performed By: #### M G, HEPATIC, CH8, LIP ####[facility] [place] [facility] [id number] [facility] , [id number] Potassium [Moles/Vol] 4.0 mmol/L Normal 3.5-5.0 [facility] Comment on above: Performed By: #### M G, HEPATIC, CH8, LIP ####[facility] [place] [facility] [id number] [facility] , [id number] Sodium [Moles/Vol] 134 mmol/L Low 136-145 [facility] Comment on above: Performed By: #### M G, HEPATIC, CH8, LIP ####[facility] [place] [facility] [id number] [facility] , [id number] Urea nitrogen [Mass/Vol] 43 mg/dL High 7-25 [facility] Comment on above: Performed By: #### M G, HEPATIC, CH8, LIP ####[facility] [place] [facility] [id number] [facility] , [id number] BLOOD CULTUREon 09-30-2024 Bacteria identified Cx Nom (Bld) C BLOOD: No Growth Normal [facility] Comment on above: Performed By: #### C BLOOD ####[facility] Zgvsofdgr1660 [facility] [place], [place] BLOOD GAS, VENOUSon 10-01-19 25 Base excess [...] Performed By: #### C R BGV ####[facility] [place] [facility] [id number] [facility] , [id number] CR HCO3V 22 mmol/L Normal 21-28 [facility] Comment on above: Performed By: #### C R BGV ####[facility] [place] [facility] [id number] [facility] , [id number] CR PHV 7.369 Normal 7.320-7.430 [facility] Comment on above: Performed By: #### C R BGV ####[facility] [place] [facility] [id number] [facility] , [id number] CR PVCO2 38.3 mm Hg Low 41.0-51.0 [facility] Comment on above: Performed By: #### C R BGV ####[facility] [place] [facility] [id number] [facility] , [id number] CR PVO2 < 30 Low 38-44 [facility] Comment on above: Performed By: #### C R BGV ####[facility] [place] [facility] [id number] [facility] , [id number] Oxygen saturation in Blood 10.1 % Low 70.0-80.0 [facility] Comment on above: Performed By: #### C R BGV ####[facility] [place] [facility] [id number] [facility] , [id number] Basic metabolic 2000 panelon 09-30-2024 Anion gap [...] Inclusion of Race in Diagnosing Kidney Disease. [place] Journal of Kidney Diseases 2021;79(2):268-88.e1. 2. N Engl J Med 2020 Vol. 385 Issue 19 Pages 9710-8964 Glucose [Mass/Vol] 189 mg/dL High 74 - 109 mg/dL [facility] Interpretation and review of laboratory results Abnormal [facility] Potassium [Moles/Vol] 4 mmol/L 3.5 - 5.0 mmol/L [facility] Sodium [Moles/Vol] 134 mmol/L Low 136 - 145 mmol/L [facility] Urea nitrogen [Mass/Vol] 43 mg/dL High 7 - 25 mg/dL [facility] CBC WITH DIFFERENTIALon Basophils (Bld) [#/Vol] 0 10*3/uL 0.00 - [...] above: Performed By: #### C BCDSAT ####[facility] [place] [facility] [id number] [place], [id number] Basophils/100 WBC (Bld) 0.3 % Normal <=1.9 [facility] Comment on above: Performed By: #### C BCDSAT ####[facility] [place] [facility] [id number] [place], [id number] Eosinophils (Bld) [#/Vol] 0.00 10*3/uL Normal 0.00-0.70 [facility] Comment on above: Performed By: #### C BCDSAT ####[facility] [id number] [place], [id number] Eosinophils/100 WBC (Bld) 0.1 % Normal 0.1-4.0 [facility] Comment on above: Performed By: #### C BCDSAT ####S [place] [facility] [id number] [place], [id number] Erythrocyte distribution width (RBC) [Ratio] 15.4 % High 11.5-14.5 [facility] Comment on above: Performed By: #### C BCDSAT ####[facility] [place] [facility] [id number] [place] , [id number] Hematocrit (Bld) [Volume fraction] 47.7 % Normal 41.0-53.0 [facility] Comment on above: Performed By: #### C BCDSAT ####S [place] [facility] [id number] [place] , [id number] Hemoglobin (Bld) [Mass/Vol] 15.6 g/dL Normal 13.9-16.3 [facility] Comment on above: Performed By: #### C BCDSAT ####S [place] [facility] [id number] [place] , [id number] Lymphocytes (Bld) [#/Vol] 1.70 10*3/uL Normal 1.00-4.80 [facility] Comment on above: Performed By: #### C BCDSAT ####[facility] [id number] [place] , [id number] Lymphocytes/100 WBC (Bld) 21.5 % Low 24.0-44.0 [facility] Comment on above: Performed By: #### C BCDSAT ####[facility] [id number] [place] , [id number] MCH (RBC) [Entitic mass] 34.1 pg High 26.0-34.0 [facility] Comment on above: Performed By: #### C BCDSAT ####[facility] [id number] [place] , [id number] MCHC (RBC) [Mass/Vol] 32.6 g/dL Normal 32.0-35.9 [facility] Comment on above: Performed By: #### C BCDSAT ####S [place] [facility] [id number] [place] , [id number] MCV (RBC) [Entitic vol] 105 fL High 80-100 [facility] Comment on above: Performed By: #### C BCDSAT ####S [place] [facility] [id number] [place] , [id number] Monocytes (Bld) [#/Vol] 0.60 10*3/uL Normal 0.20-1.00 [facility] Comment on above: Performed By: #### C BCDSAT ####S [place] [facility] [id number] [place] , [id number] Monocytes/100 WBC (Bld) 7.7 % Normal 2.0-11.0 [facility] Comment on above: Performed By: #### C BCDSAT ####[facility] [place] [facility] [id number] [place] , [id number] Neutrophils (Bld) [#/Vol] 5.40 10*3/uL Normal 1.50-8.00 [facility] Comment on above: Performed By: #### C BCDSAT ####[facility] [facility] [id number] [place] , [id number] Neutrophils/100 WBC (Bld) 70.4 % Normal 31.0-76.0 [facility] Comment on above: Performed By: #### C BCDSAT ####[facility] [place] [facility] [id number] [place] , [id number] Nucleated RBC (Bld) [#/Vol] 10*3/uL Normal [facility] Comment on above: Performed By: #### C BCDSAT ####[facility] [facility] [id number] [place] , [id number] Nucleated RBC (Bld) [#/Vol] 0.01 10*3/uL Normal [facility] Comment on above: Performed By: #### C BCDSAT ####[facility] [id number] [place] , [id number] Platelet mean volume (Bld) [Entitic vol] 8.0 fL Normal 7.5-11.2 [facility] Comment on above: Performed By: #### C BCDSAT ####[facility] [id number] [place] , [id number] Platelets (Bld) [#/Vol] 299 10*3/uL Normal 150-400 [facility] Comment on above: Performed By: #### C BCDSAT ####[facility] [id number] [facility] , [id number] RBC (Bld) [#/Vol] 4.57 10*6/uL Normal 4.50-5.90 [facility] Comment on above: Performed By: #### C BCDSAT ####[facility] [id number] [place] , [id number] WBC (Bld) [#/Vol] 7.7 10*3/uL Normal 4.5-11.5 [facility] Comment on above: Performed By: #### C BCDSAT ####[facility] [facility] [id number] [place] , [id number] COVID/INFLUENZAon 09-30-2024 FLUAV RNA DEENA+probe Ql (Nph) [...] and quality of specimen submitted for testing. [facility] SARS-CoV-2 (COVID-19) RNA DEENA+probe Ql (Unsp spec) Not detected Not Detected [facility] Comment on above: This assay was perfo rmed using Joyce DEQUAN RTPCR technology. [facility] INFLUENZA A Not detected Normal Not Detected [facility] Comment on above: Order Comment: Not D etected results are indicative of the absence of SARS-CoV-2 in the specimen submitted for testing. False negative results are possible based on the timing and quality of specimen submitted for testing. Result Comment: This assay was performed using Joyce DEQUAN RTPCR technology. Performed By: #### F CLINT/COVID ####[facility] [id number] [place] , [id number] INFLUENZA B Not detected Normal Not Detected [facility] Comment on above: Order Comment: Not D etected results are indicative of the absence of SARS-CoV-2 in the specimen submitted for testing. False negative results are possible based on the timing and quality of specimen submitted for testing. Result Comment: This assay was performed using Joyce DEQUAN RTPCR technology. Performed By: #### F CLINT/COVID ####[facility] [place] [facility] [id number] [facility] , [id number] SARS-CoV-2 (COVID-19) RNA DEENA+probe Ql (Unsp spec) Not detected Normal Not Detected [facility] Comment on above: Order Comment: Not D etected results are indicative of the absence of SARS-CoV-2 in the specimen submitted for testing. False negative results are possible based on the timing and quality of specimen submitted for testing. Result Comment: This assay was performed using Joyce DEQUAN RTPCR technology. Performed By: #### F CLINT/COVID ####[facility] [id number] [facility] , [id number] CT ABDOMEN/PELVIS W/O CONTRA STon 09-30-2024 CT ABDOMEN/PELVIS W/O CONTRAST Normal [facility] CT Abdomen and Pelvis WO con trastOrdered By: Dariel De Souza on 09-30-2024 CT DLP 832.55 (mGy.cm) [facility] Work Phone: CT Series Topogram,ABD/PEL [facility] Work Phone: CTDI VOL 0.10 (mGy),15.87 (mGy) [facility] Work Phone: PHANTOM TYPE IEC Body Dosimetry Phantom,IEC Body Dosimetry Phantom [facility] Work Phone: [facility] Work Phone: CT Abdomen and Pelvis WO [...] images and agree with the resident's interpretation. [facility] Radiology Study observation (narrative) [facility] ED Noteson 09-30-2024 Emission Specialist Authentication Interface Message Text Pt refuses to swallow whole pills. Attempted with pudding and water. Pill then crushed and pt refused to take more than half Normal The [employer] Interface Message Text notified of critical lactate value of 4.3 read back critical results. No New orders Normal The [place] Authentication Interface Message Text DR. BERG NOTIFIED OF CRITICAL LACTATE LEVEL OF 5.0. ORDERS FOLLOWED. Normal [facility] Provider Noteson 10-01-19 Emission Specialist Authentication Interface Message Text Normal [facility] H AND Timo 09-30-2024 Emission Specialist Authentication Interface Message Text Normal [facility] Emission Specialist Authentication Interface Message Text Normal [facility] HEPATIC FUNCTION PANELon Albumin [Mass/Vol] 3.8 g/dL 3.5 - 5.7 g/dL [facility] ALP [Catalytic activity/Vol] 331 U/L High [facility] ALT [Catalytic activity/Vol] 28 U/L [facility] AST [Catalytic activity/Vol] 19 U/L [facility] Bilirubin [Mass/Vol] 5.7 mg/dL High 0.3 - 1 .0 mg/dL [facility] Bilirubin.direct [Mass/Vol] 2.4 mg/dL High 0.03 - 0.18 mg/dL [facility] Interpretation and review of laboratory results Abnormal [facility] Protein [Mass/Vol] 6.5 g/dL 6.0 - 8.3 g/dL [facility] Albumin [Mass/Vol] 3.8 g/dL Normal 3.5-5.7 [facility] Comment on above: Performed By: #### M G, HEPATIC, CH8, LIP ####[facility] [place] [facility] [id number] [facility] [place], [id number] ALK 331 IU/L High 34-104 [facility] Comment on above: Performed By: #### M G, HEPATIC, CH8, LIP ####[facility] [id number] J[place], [id number] ALT [Catalytic activity/Vol] 28 U/L Normal 7-52 [facility] Comment on above: Performed By: #### M G, HEPATIC, CH8, LIP ####[facility] [facility] [id number] [facility] [place], [id number] AST [Catalytic activity/Vol] 19 U/L Normal 13-39 [facility] Comment on above: Performed By: #### M G, HEPATIC, CH8, LIP ####[facility] [facility] [id number] J[place], [id number] Bilirubin [Mass/Vol] 5.7 mg/dL High 0.3-1.0 [facility] Comment on above: Performed By: #### M G, HEPATIC, CH8, LIP ####[facility] [facility] [id number] [facility] , [id number] Bilirubin.direct [Mass/Vol] 2.40 mg/dL High 0.03-0.18 [facility] Comment on above: Performed By: #### M G, HEPATIC, CH8, LIP ####[facility] [id number] [facility] , [id number] Protein [Mass/Vol] 6.5 g/dL Normal 6.0-8.3 [facility] Comment on above: Performed By: #### M G, HEPATIC, CH8, LIP ####[facility] [id number] [facility] , [id number] HIGH SENSITIVITY TROPONIN Io n 09-30-2024 Troponin I.cardiac DL <= 0.01 ng/mL [Mass/Vol] 32 ng/L High NINF - 15 ng/L [facility] TROPONIN I 32 ng/L High <=15 [facility] Comment on above: Order Comment: [place] monalisa troponin can result from acute myocardial [...] By: #### H STRP ####[facility] [id number] [facility] [place], [id number] Troponin I.cardiac DL <= 0.01 ng/mL [Mass/Vol] 38 ng/L High NINF - 15 ng/L [facility] TROPONIN I 38 ng/L High <=15 [facility] Comment on above: Order Comment: [place] monalisa troponin can result from acute myocardial [...] judgement. Performed By: #### H STRP ####[facility] [id number] [place] , [id number] LACTIC ACIDon 09-30-2024 Interpretation and review of laboratory results Abnormal [facility] Lactate [Moles/Vol] 3.8 mmol/L Critically high 0.5 - 1.6 mmol/L [facility] CR LACT 3.8 mmol/L Critically high 0.5-1.6 [facility] Comment on above: Performed By: #### L ACT ####[facility] [facility] [id number] [place], [id number] Interpretation and review of laboratory results Abnormal [facility] Lactate [Moles/Vol] 4.3 mmol/L Critically high 0.5 - 1.6 mmol/L [facility] CR LACT 4.3 mmol/L Critically high 0.5-1.6 [facility] Comment on above: Performed By: #### L ACT ####[facility] [facility] [id number] [place], [id number] Interpretation and review of laboratory results Abnormal [facility] Lactate [Moles/Vol] 5 mmol/L Critically high 0.5 - 1.6 mmol/L [facility] CR LACT 5.0 mmol/L Critically high 0.5-1.6 [facility] Comment on above: Performed By: #### L ACT ####[facility] [place] [facility] [id number] [place] , [id number] LIPASEon 09-30-2024 Interpretation and review of laboratory results Normal [facility] Lipase [Catalytic activity/Vol] 15 U/L [facility] LIP 15 IU/L Normal 11-82 [facility] Comment on above: Performed By: #### M G, HEPATIC, CH8, LIP ####[facility] [place] [facility] [id number] [place] , [id number] MAGNESIUMOrdered By: Diana Herring on 09-30-2024 Interpretation and review of laboratory results Normal [facility] Magnesium [Mass/Vol] 2.3 mg/dL 1.9 - 2 .7 mg/dL [facility] MAGNESIUMon 09-30-2024 Magnesium [Mass/Vol] 2.3 mg/dL Normal 1.9-2.7 [facility] Comment on above: Performed By: #### M G, HEPATIC, CH8, LIP ####[facility] [facility] [id number] [place] , [id number] PROTHROMBIN TIME AND INRon 0 09-30-2024 INR Coag (PPP) [Relative time] 1.54 {INR} High 0.90 - 1.10 [facility]ation and review of laboratory results Abnormal [facility] PT Coag (PPP) [Time] 18.2 s High [facility] INR Coag (PPP) [Relative time] 1.54 {INR} High 0.90-1.10 [facility] Comment on above: Performed By: #### P T ####[facility] [id number] [place], [id number] PT Coag (PPP) [Time] 18.2 s High 9.4-12.5 [facility] Comment on above: Performed By: #### P T ####[facility] [place] [facility] [id number] [place] , [id number] Telephone Encounteron 2024 Emission Specialist Authentication Interface Message Text Normal [facility] Troponin I.cardiac DL <= 0.0 1 [...] within the clinical context using provider judgement. [facility] Interpretation and review of laboratory results Abnormal [facility] Elevated troponin ca n result from acute [...] within the clinical context using provider judgement. [facility] XR CHEST AP OR PA 1 VIEWon 0 09-30-2024 XR CHEST AP OR PA 1 VIEW Normal [facility] XR Chest Single viewon 09-30 EXAMINATION: XR CHES T AP OR PA 1 VIEW 09/30/2024 05:45 PM CLINICAL HISTORY: Chest Pain ASSOCIATED DIAGNOSIS: Chest Pain ORDERING PROVIDER: VARGAS RITTER NOTE: COMPARISON: XR CHEST AP OR [...] ASSOCIATED DIAGNOSIS: Chest Pain ORDERING PROVIDER: VARGAS RITTER NOTE: COMPARISON: XR CHEST AP OR [...] or pleural effusion. Limited exam. MACRO: None [facility] Radiology Study observation (narrative) [facility] XR Chest Single viewOrdered By: Vanessa Pyle on 09-30-2024 [facility] Work Phone: C BLOODon 09-23-2024 C [facility] Dept of Laboratory Services [address] [place] [phone] Name: CARLO MEDINA : 1980 Admitting SABINE LANGFORD MD Provider: Gender Male [facility] [id number] : Number: Locatio EDTU; [id number]; 01 n: Admit 09/17/2024 Date: Discharge 09/19/2024 [...] C=Critical, f=Footnote, c=Corrected, i=Interp Data Name: CARLO MDEINA Print 09/23/2024 00:00 EDT Date/Time: Normal [facility] Comment on above: Performed By: #### 1 43371, [id number], [id number] #### [facility] Services [address] [place] [address] Medical Technician Assistant: Woody Leyva MD C BLOOD [facility] Dept of Laboratory Services [address] [place] [phone] Name: CARLO MEDINA : 1980 Admitting SABINE LANGFORD MD Provider: Gender Male Financial [id number] : Number: Locatio EDTU; [id number]; 01 n: Admit 09/17/2024 Date: Discharge 09/19/2024 [...] MEDINA Print 09/23/2024 00:00 EDT Date/Time: Normal [facility] Comment on above: Performed By: #### 1 49455, [id number], [id number] #### [facility] Laboratory Services [address] [place] [address] Medical Technician Assistant: Woody Leyva MD AUTO DIFFon 09-19-2024 Baso Count 0.05 x1000 Normal 0.00-0.20 [facility] Comment on above: Performed By: #### 1 43421, 354263, [id number] #### [facility] Services [address] [place] [address] Medical Technician Assistant: Woody Leyva MD Basos % 0.6 % Normal [facility] Comment on above: Performed By: #### 1 51128, 242547, [id number] #### [facility] [address] [place] [address] Medical Technician Assistant: Woody Leyva MD Eos Count 0.05 x1000 Normal 0.00-0.50 [facility] Comment on above: Performed By: #### 1 18639, 155855, [id number] #### [facility] [address] [place] [address] Medical Technician Assistant: Woody Leyva MD Eosinophils/100 WBC (Bld) 0.6 % Normal [facility] Comment on above: Performed By: #### 1 71088, 783861, [id number] #### [facility] [address] [place] [address] Medical Technician Assistant: Woody Leyva MD Lymph Count 2.08 x1000 Normal 1.20-4.80 [facility] Comment on above: Performed By: #### 1 60725, 152313, [id number] #### [facility] [address] [place] [address] Medical Technician Assistant: Woody Leyva MD Lymphocytes/100 WBC (Bld) 26.8 % Normal [facility] Comment on above: Performed By: #### 1 28466, 225041, [id number] #### [facility] Services [address] [place] [address] Medical Technician Assistant: Woody Leyva MD [place] Count 0.74 x1000 Normal 0.10-1.00 [facility] Comment on above: Performed By: #### 1 13041, 107063, [id number] #### [facility] Services [address] [place] [address] Medical Technician Assistant: Woody Leyva MD Monocytes/100 WBC (Bld) 9.4 % Normal [facility] Comment on above: Performed By: #### 1 24271, 495298, [id number] #### [facility] [address] [place] [address] Medical Technician Assistant: Woody Leyva MD Neutrophil Count (ANC) 4.87 x1000 Normal 1.40-8.[address] [facility] Comment on above: Performed By: #### 1 89904, 992191, 4365905 #### [facility] [address] [place] [address] Medical Technician Assistant: Woody Leyva MD Neutrophils/100 WBC (Bld) 62.5 % Normal [facility] Comment on above: Performed By: #### 1 64761, 051511, [id number] #### [facility] [address] [place] [address] Medical Technician Assistant: Woody Leyva MD COMPMETAomarguerite 09-19-2024 Albumin [Mass/Vol] 3.0 g/dL Low 3.4-5.0 [facility] Comment on above: Performed By: #### 1 12750, 943885, [id number] #### [facility] Services [address] [place] [address] Medical Technician Assistant: Woody Leyva MD Albumin/Globulin [Mass ratio] 0.9 {ratio} Normal [facility] Comment on above: Performed By: #### 1 78548, 454071, [id number] #### [facility] [address] [place] [address] Medical Technician Assistant: Woody Leyva MD Alk Phos 276 unit/L High 45-117 [facility] Comment on above: Performed By: #### 1 04563, 639299, [id number] #### [facility] [address] [place] [address] Medical Technician Assistant: Woody Leyva MD Bilirubin [Mass/Vol] 2.90 mg/dL High 0.30-1.20 [facility] Comment on above: Result Comment: Use of this assay is not recommended for patients undergoing treatment with eltrombopag due to the potential for falsely elevated results. Performed By: #### 1 , 740554, [id number] #### [facility] [address] [place] [address] Medical Technician Assistant: Woody Leyva MD Calcium [Mass/Vol] 9.0 mg/dL Normal 8.7-10.4 [facility] Comment on above: Performed By: #### 1 , 992496, [id number] #### [facility] [address] [place] [address] Medical Technician Assistant: Woody Leyva MD Chloride [Moles/Vol] 100 mmol/L Normal 98-107 [facility] Comment on above: Performed By: #### 1 , 959507, [id number] #### [facility] [address] [place] [address]87 Medical Technician Assistant: Woody Leyva MD CO2 [Moles/Vol] 26.0 mmol/L Normal 20.0-31.0 [facility] Comment on above: Performed By: #### 1 03585, 847648, [id number] #### [facility] [address] [place] [address] Medical Technician Assistant: Woody Leyva MD Creatinine [Mass/Vol] 2.3 mg/dL High 0.6-1.1 [facility] Comment on above: Performed By: #### 1 , 910000, [id number] #### [facility] [address] [place] [address] Medical Technician Assistant: Woody Leyva MD GFR AA 37 [facility] Comment on above: Result Comment: Afri can Tunisian GFR Calc Medical judgement is necessary to [...] for drug dosing. Performed By: #### 1 04378, 829191, [id number] #### [facility] [address] [place] [address] Medical Technician Assistant: Woody Leyva MD Globulin (S) [Mass/Vol] 3.2 g/dL [facility] Comment on above: Performed By: #### 1 84191, 801822, [id number] #### [facility] [address] [place] [address] Medical Technician Assistant: Woody Leyva MD Glomerular Filtration Rate 31 mL/min/1.73m? [facility] Comment on above: Result Comment: Non- GFR [...] for drug dosing. Performed By: #### 1 25108, 867609, 5779089 #### [facility] [address] [place] [address] Medical Technician Assistant: Woody Leyva MD Glucose [Mass/Vol] 117 mg/dL High 74-106 [facility] Comment on above: Performed By: #### 1 96347, 645379, 7818327 #### [facility] [address] [place] [address] Medical Technician Assistant: Woody Leyva MD GOT 34 unit/L Normal 15-37 [facility] Comment on above: Performed By: #### 1 29383, 155700, [id number] #### [facility] [address] [place] [address] Medical Technician Assistant: Woody Leyva MD GPT 47 unit/L Normal 10-49 [facility] Comment on above: Performed By: #### 1 68089, 025321, 3677306 #### [facility] [address] [place] [address] Medical Technician Assistant: Woody Leyva MD Osmolality [Osmolality] 292 mosm/kg Normal 275-295 [facility] Comment on above: Performed By: #### 1 53141, 433135, 1146553 #### [facility] [address] [place] [address] Medical Technician Assistant: Woody Leyva MD Potassium [Moles/Vol] 3.7 mmol/L Normal 3.5-5.1 [facility] Comment on above: Performed By: #### 1 55150, 536047, 6490432 #### [facility] [address] [place] [address]24 Medical Technician Assistant: Woody Leyva MD Protein [Mass/Vol] 6.2 g/dL Normal 5.7-8.2 [facility] Comment on above: Result Comment: Tota l Protein results may be increased in patients receiving dextran as a blood volume fire prevention officer Performed By: #### 1 52773, 283891, 1811054 #### [facility] [address] [place] [address] Medical Technician Assistant: Woody Leyva MD Sodium [Moles/Vol] 139 mmol/L Normal 135-145 [facility] Comment on above: Performed By: #### 1 56920, 002872, [id number] #### [facility] [address] [place] [address] Medical Technician Assistant: Woody Leyva MD Urea nitrogen [Mass/Vol] 50 mg/dL High 03-22 [facility] Comment on above: Result Comment: - Ve nipuncture should occur prior to N-Acetyl Cysteine (NAC) or Metamizole (Sulpyrine) administration due to the potential for falsely depressed results. - Blood samples from some patients with monoclonal gammopathies may produce falsely elevated results Performed By: #### 1 24933, 597232, [id number] #### [facility] [address] [place] [address] Medical Technician Assistant: Woody Leyva MD Urea nitrogen/Creatinine [Mass ratio] 21.7 mg/mg Normal [facility] Comment on above: Performed By: #### 1 61354, 320245, 9668030 #### [facility] [address] [place] [address] Medical Technician Assistant: Woody Leyva MD Consult Reporton 09-19-2024 Consult [...] Advised him to follow-up with the regular solvent plant treater. Will try to obtain records however patient [...] CHLORIDE SYR/VIAL 10ML 3 mL, IV Push, [id number] Continuous: (0) PRN: (8) ACETAMINOPHEN 325 MG TAB 650 mg 2 tabs, ORAL, [id number] ACETAMINOPHEN 325 MG TAB 650 mg 2 tabs, ORAL, [id number] ACETAMINOPHEN 325 MG TAB 650 mg 2 tabs, ORAL, [id number] MELATONIN 5MG TAB 5 mg 1 tabs, ORAL, QHS/[id number] NALOXONE 0.4MG/1ML INJ 0.4 mg 1 mL, IV Push, PRN ONDANSETRON=ZOFRAN INJ 4 mg 2 mL, IV Push, [id number] SODIUM CHLORIDE SYR/VIAL 10ML 3 mL, IV Push, PRN TramADOL 50MG TABLET 50 mg 1 tabs, ORAL, [id number] Allergies (1) Active Severity Reaction No Known [...] available. BNP No qualifying data available. Normal [facility] HEMOon 09-19-2024 DIFF? No Normal [facility] Comment on above: Performed By: #### 1 79204, 054062, [id number] #### [facility] [address] [place] [address]149 Medical Technician Assistant: Woody Leyva MD Erythrocyte distribution width (RBC) [Ratio] 14.0 % Normal 11.5-14.5 [facility] Comment on above: Performed By: #### 1 59621, 079605, [id number] #### [facility] [address] [place] [address] 05636 Medical Technician Assistant: Woody Leyva MD Hematocrit (Bld) [Volume fraction] 40.1 % Low 41.0-52.0 [facility] Comment on above: Performed By: #### 1 12125, 868556, [id number] #### [facility] [address] [place] [address] Medical Technician Assistant: Woody Leyva MD Hemoglobin (Bld) [Mass/Vol] 13.6 g/dL Normal 13.5-17.5 [facility] Comment on above: Performed By: #### 1 41639, 471832, [id number] #### [facility] [address] [place] [address]889 Medical Technician Assistant: Woody Leyva MD Instr WBC 7.8 Normal [facility] Comment on above: Performed By: #### 1 69643, 353588, 8684722 #### [facility] [address] [place] [address]2396 Medical Technician Assistant: Woody Leyva MD MCH (RBC) [Entitic mass] 34.6 pg High 27.0-34.0 [facility] Comment on above: Performed By: #### 1 79610, 715106, [id number] #### [facility] [address] [place] [address] Medical Technician Assistant: Woody Leyva MD MCHC (RBC) [Mass/Vol] 33.8 g/dL Normal 32.0-37.0 [facility] Comment on above: Performed By: #### 1 96484, 306531, [id number] #### [facility] [address] [place] [address]50 Medical Technician Assistant: Woody Leyva MD MCV (RBC) [Entitic vol] 102.2 fL High 80.0-100.0 [facility] Comment on above: Performed By: #### 1 67141, 554275, [id number] #### [facility] [address] [place] [address] 87355 Medical Technician Assistant: Woody Leyva MD Nucleated RBC 0 /100WBC Normal [facility] Comment on above: Performed By: #### 1 92580, 245819, [id number] #### [facility] [address] [place] [address] 80262 Medical Technician Assistant: Woody Leyva MD Platelet 186 x10 Normal 150-450 [facility] Comment on above: Performed By: #### 1 96425, 912809, 2433460 #### [facility] [address] [place] [address] 85207 Medical Technician Assistant: Woody Leyva MD Platelet mean volume (Bld) [Entitic vol] 8.5 fL Normal 7.4-10.4 [facility] Comment on above: Performed By: #### 1 94594, 830923, [id number] #### [facility] [address] [place] [address] 35074 Medical Technician Assistant: Woody Leyva MD RBC 3.92 x10 Low 4.70-6.10 [facility] Comment on above: Result Comment: Note : RBC morphology is normal unless otherwise stated. Evaluation performed only if differential is requested. Performed By: #### 1 20018, 368442, [id number] #### [facility] [address] [place] [address] Medical Technician Assistant: Woody Leyva MD WBC 7.8 x10 Normal 4.5-11.0 [facility] Comment on above: Performed By: #### 1 30079, 860923, [id number] #### [facility] [address] [place] [address] Medical Technician Assistant: Woody Leyva MD Inpatient Patient Summaryon 09-19-2024 Inpatient Patient Summary [facility] Discharge Instructions [address] [place] [address] (Patient Copy) Name: CARLO MEDINA : 1980 Diagnosis: 1:Chest pain; 2:Vomiting; 3:Lactic acidosis Allergies: No Known Medication Allergies Registration Date: 09/17/24 Current Date Time: 09/19/2024 11:12:08 Address: [address] [place] [address] Primary Care Provider: Name: SHARI HIGGINS Phone: [phone] Thank you for choosing [facility] for your care. You are very important to us. Our goal is to demonstrate our high quality medical care and provide you with a very good patient experience. You may receive a survey about our service. Please take the time to complete the survey and return it so we can continue to enhance our service. Thank you again for allowing [facility] to care for your medical needs. If [...] Address: When: GIOVANI GARCIA, Cardiology [address] [place] [address] Business (1) Within 5 to 7 days Comments: Call 911 with signs/symptoms of Stroke. Call 911 with symptoms of Chest Pain. Call Dr if you have Shortness of Breath. This is a solvent plant treater here at [facility] that seen you in the ED [place] area. If you would like to use this solvent plant treater and his group, please give them a call for a follow-up appoint within 5-7 days OR you can find a solvent plant treater closer to home of you choice or one that is on your insurance. Thank You With: Address: When: Please follow-up with your Primary Care Dr and establish a Denture Processor of your choice. One will be provided below if you need a solvent plant treater here at [facility] With: Address: When: SHARI HIGGINS [facility] [place], [place] [phone] Business (1) Within Call for Appointment If [...] until you (more content not included)... [facility] Mail Caller Detailson 2024 Mail Caller Details Mail Caller Details Entered On: 09/19/2024 0:18 EDT Performed On: 09/19/2024 0:17 EDT by Berenice Reeder RN Mail Caller Details Transport Mode Order Detail EV : [...] Constant Order, Current ACLS Provider may, Initiate [place] [employer] Advanced Cardiac Life support Algorithm [...] : No Pacemaker Order Detail : 0 Mail Caller Details Review Status : Reviewed, no changes Nurse Collects Blood Specimens : No Berenice Reeder RN - 09/19/2024 0:17 EDT [facility] Comment on above: Order Comment: Order [...] CHLORIDE SYR/VIAL 10ML 3 mL, IV Push, [id number] Continuous: (0) PRN: (8) ACETAMINOPHEN 325 MG TAB 650 mg 2 tabs, ORAL, T8ZICIB ACETAMINOPHEN 325 MG TAB 650 mg 2 tabs, ORAL, U1ZADPR ACETAMINOPHEN 325 MG TAB 650 mg 2 tabs, ORAL, Q3LSENT MELATONIN 5MG TAB 5 mg 1 tabs, ORAL, [id number] NALOXONE 0.4MG/1ML INJ 0.4 mg 1 mL, IV Push, PRN ONDANSETRON=ZOFRAN INJ 4 mg 2 mL, IV Push, U8ESOEV SODIUM CHLORIDE SYR/VIAL 10ML 3 mL, IV Push, PRN TramADOL 50MG TABLET 50 mg 1 tabs, ORAL, [id number] Problem list: Active Problems (3) At risk [...] is cleared he will be discharged today [facility] 09-18-2024 aPTT Coag (Bld) [Time] 31.3 s Normal 26.0-36.[address] [facility] Comment on above: Result Comment: APTT Interpretation: This test has not been validated to monitor heparin therapy. APTT test is used as an initial test for suspected bleeding disorder. Anti-Xa UFH test is used to monitor heparin therapy. Performed By: #### 1 70611, 632316, 830984, 713892, 334074, 900166 #### [facility] [address] [place], [place] [address] Medical Technician Assistant: Woody Leyva MD AUTO DIFFon 09-18-2024 Baso Count 0.04 x1000 Normal 0.00-0.20 [facility] Comment on above: Performed By: #### 1 56044, 577839, 1058953 #### [facility] [address] [place], [place] [address] Medical Technician Assistant: Woody Leyva MD Basos % 0.7 % Normal [facility] Comment on above: Performed By: #### 1 64470, 294314, 0129834 #### [facility] [address] [place] [address] 02959 Medical Technician Assistant: Woody Leyva MD Eos Count 0.02 x1000 Normal 0.00-0.50 [facility] Comment on above: Performed By: #### 1 69380, 748747, 3172015 #### [facility] [address] [place], [place] [address] Medical Technician Assistant: Woody Leyva MD Eosinophils/100 WBC (Bld) 0.4 % Normal [facility] Comment on above: Performed By: #### 1 22096, 490180, 4091109 #### [facility] [address] [place], [place] [address] Medical Technician Assistant: Woody Leyva MD Lymph Count 1.36 x1000 Normal 1.20-4.80 [facility] Comment on above: Performed By: #### 1 92218, 266636, 4949032 #### [facility] [address] [place] [address] Medical Technician Assistant: Woody Leyva MD Lymphocytes/100 WBC (Bld) 27.0 % Normal [facility] Comment on above: Performed By: #### 1 35628, 055244, 5681946 #### [facility] [address] [place] [address] 91482 Medical Technician Assistant: Woody Leyva MD [place] Count 0.35 x1000 Normal 0.10-1.00 [facility] Comment on above: Performed By: #### 1 19167, 540359, 9417431 #### [facility] [address] [place] [address] 29852 Medical Technician Assistant: Woody Leyva MD Monocytes/100 WBC (Bld) 7.0 % [facility] Comment on above: Performed By: #### 1 18713, 255590, 0237664 #### [facility] [address] [place] [address] 19671 Medical Technician Assistant: Woody Leyva MD Neutrophil Count (ANC) 3.26 x1000 Normal 1.40-8.[address] [facility] Comment on above: Performed By: #### 1 45751, 777742, 8992428 #### [facility] [address] [place] [address] 30576 Medical Technician Assistant: Woody Leyva MD Neutrophils/100 WBC (Bld) 64.9 % [facility] Comment on above: Performed By: #### 1 67379, 883057, 6492473 #### [facility] [address] [place] [address] 33898 Medical Technician Assistant: Woody Leyva MD Admission Assessment Adulton 09-18-2024 [...] 15:21 EDT Yesenia Coma Eye Opening Response [place] : Spontaneously Best Verbal Response [place] : Oriented Best Motor Response [place] : Obeys simple commands [place] Coma Score : 15 Nicole Manning RN [...] Skin Temperature : Warm Skin Color : [place] Skin Turgor : Elastic Mucous Membrane Color : [place] Mucous Membrane Description : Dry Skin Description [...] Manning RN - 09/18/2024 15:21 EDT [facility] Comment on above: Order Comment: Order entered secondary to admission Admission History Adulton Admission History Adult Patient History Model Entered On: 09/18/2024 15:25 EDT Performed On: 09/18/2024 15:24 EDT by Nicole Manning RN General Info Preferred Verbal : Filipino Contact Information : girlfriend Preferred Written : Filipino Currently or : Not Applicable Is patient a dialysis patient? : No Nicole Manning RN - 09/18/2024 15:24 EDT Problem List Problem List obtained from : Patient Nicole Manning RN - 09/18/2024 15:24 EDT (As Of: 09/18/2024 15:25:48 EDT) Problems(Active) At risk for falls (SNOMED CT :851085017 ) Name of Problem: At risk for falls ; Recorder: SYSTEM; Confirmation: Confirmed ; Classification: Nursing ; Code: [id number] ; Last Updated: 09/18/2024 00:13 EDT ; Life Cycle Date: 09/18/2024 ; Life Cycle Status: Active ; Vocabulary: SNOMED CT ; Comments: 09/18/2024 0:13 - SYSTEM Problem added automatically by system based on documentation of a admission to the hospital. Heart disease (SNOMED CT :48875292 ) Name of Problem: Heart disease ; Recorder: Nicole Manning RN; Confirmation: Confirmed ; Classification: Medical ; Code: [id number] ; Contributor System: [employer] ; Last Updated: 09/18/2024 11:31 EDT ; Life Cycle Date: 09/18/2024 ; Life Cycle Status: Active ; Responsible Provider: Nicole Manning RN; Vocabulary: SNOMED CT Kidney disease (SNOMED CT :839366869 ) Name of Problem: Kidney disease ; Recorder: Nicole Manning RN; Confirmation: Confirmed ; Classification: Medical ; Code: [id number] ; Contributor System: [employer] ; Last Updated: 09/18/2024 11:31 EDT ; Life Cycle Date: 09/18/2024 ; Life Cycle Status: Active ; Responsible Provider: Nicole Manning RN; Vocabulary: SNOMED CT Diagnoses(Active) chest burning Date: 09/17/2024 ; Diagnosis Type: Reason For Visit ; Confirmation: Confirmed ; Clinical Dx: chest burning ; Classification: Medical ; Clinical Service: Emergency medicine ; Code: PNED ; Probability: 0 ; Diagnosis Code: [id number] Chest pain Date: 09/18/2024 ; Diagnosis Type: [...] PNED ; Probability: 0 ; Diagnosis Code: [id number] Vomiting Date: 09/18/2024 ; Diagnosis Type: Discharge [...] Nicole Manning RN - 09/18/2024 15:24 EDT [facility] Clergy to Visit : No Nicole Manning RN - 09/18/2024 15:24 EDT Advance Directive Advanced Directives : No Advance Directive Additional Information : No Nicole Manning RN - 09/18/2024 15:24 EDT Infection Screening Travel outside [place] within past 21 days : No Positive COVID test in the last 10 days? : No Exposure to and/or close contact with a person who has a laboratory-confirmed COVID test within the last 48 hours. : No Nicole Manning RN - 09/18/2024 15:24 EDT [facility] Comment on above: Order Comment: Order [...] Kerri EVANS, Nicole - 09/18/2024 11:30 EDT [facility] Comment on above: Order Comment: Order entered secondary to admission COMPMETAon 09-18-2024 GFR Estimated 41 [facility] Comment on above: Result Comment: The GFR is calculated and is Age, Sex and Race adjusted. Performed By: #### 1 29414, 454328, [id number] #### [facility] [address] [place], [place] [address] Medical Technician Assistant: Woody Leyva MD Albumin [Mass/Vol] 3.0 g/dL Low 3.4-5.0 [facility] Comment on above: Performed By: #### 1 97577, 075246, 2334371 #### [facility] [address] [place], [place] [address] Medical Technician Assistant: Woody Leyva MD Albumin/Globulin [Mass ratio] 0.9 {ratio} [facility] Comment on above: Performed By: #### 1 87234, 908117, 6786732 #### [facility] [address] [place], [place] [address] Medical Technician Assistant: Woody Leyva MD Alk Phos 223 unit/L High 45-117 [facility] Comment on above: Performed By: #### 1 03359, 550826, 5286359 #### [facility] [address] [place] [address] 65985 Medical Technician Assistant: Woody Leyva MD Bilirubin [Mass/Vol] 4.20 mg/dL High 0.30-1.20 [facility] Comment on above: Result Comment: Use of this assay is not recommended for patients undergoing treatment with eltrombopag due to the potential for falsely elevated results. Performed By: #### 1 91939, 446679, 2283890 #### [facility] [address] [place] [address] Medical Technician Assistant: Woody Leyva MD Calcium [Mass/Vol] 9.1 mg/dL Normal 8.7-10.4 [facility] Comment on above: Performed By: #### 1 53249, 028873, 3151108 #### [facility] [address] [place] [address] 27847 Medical Technician Assistant: Woody Leyva MD Chloride [Moles/Vol] 100 mmol/L Normal 98-107 [facility] Comment on above: Performed By: #### 1 65135, 056100, 0171665 #### [facility] [address] [place] [address] 17630 Medical Technician Assistant: Woody Leyva MD CO2 [Moles/Vol] 26.0 mmol/L Normal 20.0-31.0 [facility] Comment on above: Performed By: #### 1 93497, 177556, 0624901 #### [facility] [address] [place] [address] 15519 Medical Technician Assistant: Woody Leyva MD Creatinine [Mass/Vol] 2.1 mg/dL High 0.6-1.1 [facility] Comment on above: Performed By: #### 1 12845, 318672, 6487381 #### [facility] [address] [place] [address] 32162 Medical Technician Assistant: Woody Leyva MD GFR AA 41 [facility] Comment on above: Result Comment: Afri can [place] GFR Calc Medical judgement is necessary to [...] for drug dosing. Performed By: #### 1 14838, 323226, 7067483 #### [facility] [address] [place] [address] Medical Technician Assistant: Woody Leyva MD Globulin (S) [Mass/Vol] 3.2 g/dL [facility] Comment on above: Performed By: #### 1 44383, 887255, 7309757 #### [facility] [address] [place] [address] 10372 Medical Technician Assistant: Woody Leyva MD Glomerular Filtration Rate 34 mL/min/1.73m? [facility] Comment on above: Result Comment: Non- [...] for drug dosing. Performed By: #### 1 12121, 124835, 3748164 #### [facility] [address] [place] [address] 82518 Medical Technician Assistant: Woody Leyva MD Glucose [Mass/Vol] 175 mg/dL High 74-106 [facility] Comment on above: Performed By: #### 1 62309, 852562, 1208408 #### [facility] [address] [place] [address] 24351 Medical Technician Assistant: Woody Leyva MD GOT 28 unit/L Normal 15-37 [facility] Comment on above: Performed By: #### 1 05702, 529948, 3527090 #### [facility] [address] [place] [address] Medical Technician Assistant: Woody Leyva MD GPT 43 unit/L Normal 10-49 [facility] Comment on above: Performed By: #### 1 71208, 710120, 3906158 #### [facility] [address] [place] [address] 30495 Medical Technician Assistant: Woody Leyva MD Osmolality [Osmolality] 295 mosm/kg Normal 275-295 [facility] Comment on above: Performed By: #### 1 11526, 630281, 9222366 #### [facility] [address] [place] [address] 85207 Medical Technician Assistant: Woody Leyva MD Potassium [Moles/Vol] 3.6 mmol/L Normal 3.5-5.1 [facility] Comment on above: Result Comment: Spec imen slightly hemolyzed. Results may be affected. Performed By: #### 1 79570, 073166, 2506948 #### [facility] [address] [place] [address] 74134 Medical Technician Assistant: Woody Leyva MD Protein [Mass/Vol] 6.2 g/dL Normal 5.7-8.2 [facility] Comment on above: Result Comment: Tota l Protein results may be increased in patients receiving dextran as a blood volume fire prevention officer Performed By: #### 1 92377, 992827, 2545466 #### [facility] [address] [place] [address] 69355 Medical Technician Assistant: Woody Leyva MD Sodium [Moles/Vol] 140 mmol/L Normal 135-145 [facility] Comment on above: Performed By: #### 1 10149, 793206, 2489868 #### [facility] [address] [place] [address] 99858 Medical Technician Assistant: Woody Leyva MD Urea nitrogen [Mass/Vol] 45 mg/dL High 9-23 [facility] Comment on above: Result Comment: - Ve nipuncture should occur prior to N-Acetyl Cysteine (NAC) or Metamizole (Sulpyrine) administration due to the potential for falsely depressed results. - Blood samples from some patients with monoclonal gammopathies may produce falsely elevated results Performed By: #### 1 65257, 091035, 1012256 #### [facility] [address] [place] [address], [place] [address] Medical Technician Assistant: Woody Leyva MD Urea nitrogen/Creatinine [Mass ratio] 21.4 mg/mg [facility] Comment on above: Performed By: #### 1 24896, 353960, 3016340 #### [facility] [address] [place] [address] Medical Technician Assistant: Woody Leyva MD ED Physician Reporton 2024 [...] stated that he was recently seen at [facility] and was in the hospital last [...] sodium chloride(Saline Flush), 3 mL, IV Push, [id number] sodium chloride(Saline Flush), 3 mL, IV Push, [...] EVANS, Talia, 09/17/2024 22:44:00 EDT, Specimen type: AUTOMAT WATCHER Swab EKG ER, 09/17/2024 18:16:00 EDT, Chest Pain, Cart, Heart Meds Unknown at this time, STAT, No EKG/[place] Requested LACTATE, STAT, 09/17/2024 19:49:00 EDT Level [...] B(RAPID INFLU (more content not included)... [facility] HEMOon 09-18-2024 DIFF? No [facility] Comment on above: Performed By: #### 1 55432, 326708, 9392820 #### [facility] [address] [place] [address] [id number] Medical Technician Assistant: Woody Leyva MD Erythrocyte distribution width (RBC) [Ratio] 13.8 % Normal 11.5-14.5 [facility] Comment on above: Result Comment: Revi ewed Performed By: #### 1 59604, 155464, 0932571 #### [facility] [address] [place] [address] 44130 Medical Technician Assistant: Woody Leyva MD Hematocrit (Bld) [Volume fraction] 40.8 % Low 41.0-52.0 [facility] Comment on above: Performed By: #### 1 68163, 547417, 9473599 #### [facility] [address] [place] [address] 11107 Medical Technician Assistant: Wooyd Leyva MD Hemoglobin (Bld) [Mass/Vol] 13.6 g/dL Normal 13.5-17.5 [facility] Comment on above: Performed By: #### 1 , 765937, 7962976 #### [facility] [address] [place], [place] [address] Medical Technician Assistant: Woody Leyva MD Instr WBC 5.0 [facility] Comment on above: Performed By: #### 1 , 292396, 4649622 #### [facility] [address] [place], [place] [address] Medical Technician Assistant: Woody Leyva MD MCH (RBC) [Entitic mass] 34.4 pg High 27.0-34.0 [facility] Comment on above: Performed By: #### 1 , 643616, 6170387 #### [facility] [address] [place], [place] [address] Medical Technician Assistant: Woody Leyva MD MCHC (RBC) [Mass/Vol] 33.3 g/dL Normal 32.0-37.0 [facility] Comment on above: Performed By: #### 1 , 181561, [id number] #### [facility] [address] [place], [place] [address] Medical Technician Assistant: Woody Leyva MD MCV (RBC) [Entitic vol] 103.4 fL High 80.0-100.0 [facility] Comment on above: Performed By: #### 1 89510, 801952, 4696007 #### [facility] [address] [place] [address] 98438 Medical Technician Assistant: Woody Leyva MD Nucleated RBC 0 /100WBC [facility] Comment on above: Performed By: #### 1 78430, 026717, 9582192 #### [facility] [address] [place] [address] 60409 Medical Technician Assistant: Woody Leyva MD Platelet 179 x10 Normal 150-450 [facility] Comment on above: Performed By: #### 1 28710, 004536, 2739566 #### [facility] [address] [place] [address] 76509 Medical Technician Assistant: Woody Leyva MD Platelet mean volume (Bld) [Entitic vol] 8.1 fL Normal 7.4-10.4 [facility] Comment on above: Performed By: #### 1 93353, 315185, 4640279 #### [facility] [address] [place] [address] 10378 Medical Technician Assistant: Woody Leyva MD RBC 3.94 x10 Low 4.70-6.10 [facility] Comment on above: Result Comment: Note : RBC morphology is normal unless otherwise stated. Evaluation performed only if differential is requested. Performed By: #### 1 33052, 510003, 2859723 #### [facility] [address] [place], [place] [address] Medical Technician Assistant: Woody Leyva MD WBC 5.0 x10 Normal 4.5-11.0 [facility] Comment on above: Performed By: #### 1 65806, 314682, 0017492 #### [facility] [address] [place] [address] 34943 Medical Technician Assistant: Woody Leyva MD LACTATEon 09-18-2024 Lactate [Moles/Vol] 2.6 mmol/L High 0.5-2.2 [facility] Comment on above: Order Comment: Sepsi s [...] falsely depressed results Performed By: #### 1 87587, 364712, 5994649 #### [facility] [address] [place] [address] Medical Technician Assistant: Woody Leyva MD Mail Caller Detailson 2024 Mail Caller Details Mail Caller Details Entered On: 09/18/2024 11:32 EDT Performed On: 09/18/2024 8:00 EDT by Nicole Manning RN Mail Caller Details Transport Mode Order Detail EV : Wheelchair Isolation Precautions RTF : Communication CONSTANT Order, 09/18/2024 09:58:00 EDT, Constant Order, STAT EKG for Chest Pain, STAT ABGs for Acute Respiratory Distress, STAT Potassium/Magnesium for any significant change in condition/rhythm, Ordered Communication CONSTANT Order, 09/18/2024 09:58:00 EDT, Constant Order, Current ACLS Provider may, Initiate [place] [employer] Advanced Cardiac Life support Algorithm [...] the responsibility of the admitting/attending physician., [facility] to [facility], 09/17/2024 18:16:00 EDT, Constant Order, NPO, Ordered Isolation Precaution Order Detail EV : NONE IV Order Detail - EV : No Oxygen Order Detail EV : No Order Detail EV : No Pacemaker Order Detail : 0 Mail Caller Details Review Status : Initial Review Nurse Collects Blood Specimens : Lluvia Manning RN, Nicole - 09/18/2024 11:32 EDT [facility] Comment on above: Order Comment: Order entered secondary to admission PT INRon 09-18-2024 INR Coag (PPP) [Relative time] 1.4 {INR} Normal [facility] Comment on above: Order Comment: was n ot able to obtain blue top with first stick, pt would not let me stick twice. notified CRISTINE Kowalski 09/17/2024 23:15:27 EDT AJ Result Comment: INR Reference Range: Normal reference range for INR on patients not on anticoagulant therapy: 0.9-1.1 General therapeutic range for patients on anticoagulant therapy: 2.0-3.5 Performed By: #### 1 92798, 008730, 609631, 493749, 464971, 350995 #### [facility] [address] [place] [address]130 Medical Technician Assistant: Woody Leyva MD Protime Patient 15.9 seconds High 9.8-12.4 [facility] Comment on above: Order Comment: was n ot able to obtain blue top with first stick, pt would not let me stick twice. notified CRISTINE Kowalski 09/17/2024 23:15:27 EDT AJ Performed By: #### 1 07540, 690722, 515029, 471930, 242432, 569692 #### [facility] [address] [place] [address]130 Medical Technician Assistant: Woody Leyva MD Progress Note-Physicianon Progress Note-Physician Patient: CARLO MEDINA Age: 44 years Sex: Male : 1980 Associated Diagnoses: None Author: KARINA BELCHER CNP AUTOMAT WATCHER notified by RN that pt refuses both Covid and Influenza A/B swabs. Attending made aware. Normal [facility] TROPONIN HS 2HRon 09-18-2024 Delta Troponin 2 Hr 0 pg/mL Normal 0-14 [facility] Comment on above: Result Comment: The term acute myocardial infarction should be used when there is acute myocardial injury with clinical evidence of acute myocardial ischemia and the rise or fall of serial Troponin HS values (delta troponin) greater than or equal to 15 pg/mL with at least one Troponin HS value above the 99th percentile reference range Performed By: #### 1 12876, 352876, [id number] #### [facility] [address] [place], [place] [address] Medical Technician Assistant: Woody Leyva MD Troponin HS 2 Hr 34 pg/mL Normal 3-53 [facility] Comment on above: Result Comment: Spec imens from some individuals with pathologically high gamma globulin levels may demonstrate depressed troponin values Performed By: #### 1 87246, 098906, [id number] #### [facility] [address] [place], [place] [address] Medical Technician Assistant: Woody Leyva MD TROPONIN HS 6HRon 09-18-2024 Delta Troponin 6 Hr 3 pg/mL Normal 0-14 [facility] Comment on above: Order Comment: 6hr t [...] percentile reference range Performed By: #### 1 99155, 763072, [id number] #### [facility] [address] [place], [place] [address] Medical Technician Assistant: Woody Leyva MD Troponin HS 6 Hr 31 pg/mL Normal 3-53 [facility] Comment on above: Order Comment: 6hr t roph is due @ 0509 from baseline draw 09/18/2024 03:05:57 EDT AJ Result Comment: Spec imens from some individuals with pathologically high gamma globulin levels may demonstrate depressed troponin values Performed By: #### 1 67682, 045558, [id number] #### [facility] [address] [place] [address] 65570 Medical Technician Assistant: Woody Leyva MD AUTO DIFFon 09-17-2024 Baso Count 0.05 x1000 Normal 0.00-0.20 [facility] Comment on above: Performed By: #### 7 [id number] #### [facility] [address] [place] [address] 14839 Medical Technician Assistant: Woody Leyva MD Basos % 0.6 % Normal [facility] Comment on above: Performed By: #### 7 [id number] #### [facility] [address] [place] [address] 55059 Medical Technician Assistant: Woody Leyva MD Eos Count 0.02 x1000 Normal 0.00-0.50 [facility] Comment on above: Performed By: #### 7 [id number] #### [facility] [address] [place], [place] [address] Medical Technician Assistant: Woody Leyva MD Eosinophils/100 WBC (Bld) 0.2 % Normal [facility] Comment on above: Performed By: #### 7 [id number] #### [facility] [address] [place] [address] 96644 Medical Technician Assistant: Woody Leyva MD Lymph Count 2.16 x1000 Normal 1.20-4.80 [facility] Comment on above: Performed By: #### 7 [id number] #### [facility] [address] [place] [address] 42352 Medical Technician Assistant: Woody Leyva MD Lymphocytes/100 WBC (Bld) 29.0 % Normal [facility] Comment on above: Performed By: #### 7 [id number] #### [facility] [address] [place] [address] 90389 Medical Technician Assistant: Woody Leyva MD [place] Count 0.50 x1000 Normal 0.10-1.00 [facility] Comment on above: Performed By: #### 7 [id number] #### [facility] [address] [place] [address] 41069 Medical Technician Assistant: Woody Leyva MD Monocytes/100 WBC (Bld) 6.7 % Normal [facility] Comment on above: Performed By: #### 7 [id number] #### [facility] [address] [place] [address] 30580 Medical Technician Assistant: Woody Leyva MD Neutrophil Count (ANC) 4.72 x1000 Normal 1.40-8.[address] [facility] Comment on above: Performed By: #### 7 [id number] #### [facility] [address] [place] [address] 29962 Medical Technician Assistant: Woody Leyva MD Neutrophils/100 WBC (Bld) 63.4 % Normal [facility] Comment on above: Performed By: #### 7 [id number] #### [facility] [address] [place] [address] 20270 Medical Technician Assistant: Woody Leyva MD Red Blood Cell Morphology See Notes Abnormal [facility] Comment on above: Result Comment: Macr ocytosis 1+ Anisocytosis 1+ Performed By: #### 7 [id number] #### [facility] [address] [place] [address] 16063 Medical Technician Assistant: Woody Leyva MD Addendum Noteon 09-17-2024 Emission Specialist Authentication Interface Message Text Addended by: EVA ISAACS on: 09/17/2024 04:17 PM Modules accepted: Orders Normal [employer] CNOVon 09-17-2024 CNOV Office Visit ([facility] ) CARLO MEDINA ([id number]) 1980 M Date Time Provider Department 09/17/24 5:[address] [facility] During your visit today, we recorded the following information about you: Pulse Respiration Blood pressure 109/minute 16/minute 108/85 King Medina, DO 09/17/2024 6:40 PM Signed [facility] Subjective Carlo Medina is a 44 [...] CHF, cardiac event that appears to be NC, though Patient denies NC. Recently was hospitalized with kidney failure at [facility] and discharged ~5 days ago. Has [...] (primary diagnosis) Given hx, symptoms, EMS called. [facility] arrived within minutes to take Patient to ED. Patient appears stable upon leaving [facility] for ED via EMS. [...] records: Multiple admissions for CHF, Kidney failure, NC recently Differential Diagnoses - Concern for cardiac, dehydration, kidney issues is more likely for the following reason(s): suggested by HAND[employer] Contributing Factors Chronic conditions affecting care: CHF, NC, Kidney Disease Chronic conditions addressed by: CHF, NC, Kidney disease - co-morbidities/risk factors. Disposition The patient was other (comment) (ED via EMS). Pamela Cueto LPN 09/17/2024 6:40 PM Signed [facility], Ambulatory Surgery [facility] and Remote Sites Emergency Response Form. NOT TO BE USED AT [facility] Complete this report when the Emergency Medical Response is activated (911 calls/EmergencyTransp ort to the ED) or when a Code Sheet is utilized in the care of a patient (i.e., ASC) Date of the Event: [id number] (Must provide Value) Time of the Event:5:43pm (Must provide Value) Was emergency response activated? (Local EMS/Emergency Department) YES (Must provide Value) Location of the Incident:[facility] ([facility]) (Must provide Value) Reason/Chief Complaint for Emergency Call (Check all that apply): Chest Pain/Pressure (Must provide Value) (more content not included)... Normal [facility] COMPMETAon 09-17-2024 Albumin [Mass/Vol] 3.1 g/dL Low 3.4-5.0 [facility] Comment on above: Performed By: #### 1 87782, 467521, 995050, 735287, 683009, 117813 #### [facility] [address] [place] [address] 12109 Medical Technician Assistant: Woody Leyva MD Albumin/Globulin [Mass ratio] 1.0 {ratio} Normal [facility] Comment on above: Performed By: #### 1 66118, 961177, 872172, 225740, 340072, 718848 #### [facility] [address] [place] [address] 58945 Medical Technician Assistant: Woody Leyva MD Alk Phos 219 unit/L High 45-117 [facility] Comment on above: Performed By: #### 1 34638, 313954, 611693, 667460, 284295, 862497 #### [facility] [address] [place] [address] 81413 Medical Technician Assistant: Woody Leyva MD Bilirubin [Mass/Vol] 4.40 mg/dL High 0.30-1.20 [facility] Comment on above: Result Comment: Use of this assay is not recommended for patients undergoing treatment with eltrombopag due to the potential for falsely elevated results. Performed By: #### 1 51409, 746714, 498953, 160684, 376741, 247433 #### [facility] [address] [place] [address] Medical Technician Assistant: Woody Leyva MD Calcium [Mass/Vol] 9.3 mg/dL Normal 8.7-10.4 [facility] Comment on above: Performed By: #### 1 89004, 873755, 057441, 049435, 428440, 391231 #### [facility] [address] [place] [address] Medical Technician Assistant: Woody Leyva MD Chloride [Moles/Vol] 100 mmol/L Normal 98-107 [facility] Comment on above: Performed By: #### 1 74109, 859146, 510473, 019762, 511534, 618033 #### [facility] [address] [place] [address] 72824 Medical Technician Assistant: Woody Leyva MD CO2 [Moles/Vol] 25.0 mmol/L Normal 20.0-31.0 [facility] Comment on above: Performed By: #### 1 07866, 424499, 165509, 748731, 031894, 900716 #### [facility] [address] [place] [address] 08888 Medical Technician Assistant: Woody Leyva MD Creatinine [Mass/Vol] 2.0 mg/dL High 0.6-1.1 [facility] Comment on above: Performed By: #### 1 82033, 306095, 632623, 718357, 956973, 187737 #### [facility] [address] [place] [address] Medical Technician Assistant: Woody Leyva MD GFR AA 44 [facility] Comment on above: Result Comment: Afri can [place]ian GFR Calc Medical judgement is necessary to [...] for drug dosing. Performed By: #### 1 70484, 165027, 952673, 010829, 066528, 708434 #### [facility] [address] [place] [address] Medical Technician Assistant: Woody Leyva MD Globulin (S) [Mass/Vol] 3.2 g/dL Normal [facility] Comment on above: Performed By: #### 1 22784, 139479, 366732, 847880, 503000, 781941 #### [facility] [address] [place] [address] Medical Technician Assistant: Woody Leyva MD Glomerular Filtration Rate 36 mL/min/1.73m? Normal [facility] Comment on above: Result Comment: Non- [...] for drug dosing. Performed By: #### 1 98296, 834415, 629112, 096710, 398671, 682836 #### [facility] [address] [place] [address] Medical Technician Assistant: Woody Leyva MD Glucose [Mass/Vol] 99 mg/dL Normal 74-106 [facility] Comment on above: Performed By: #### 1 75000, 709708, 947793, 584469, 719339, 241619 #### [facility] [address] [place] [address] Medical Technician Assistant: Woody Leyva MD GOT 28 unit/L Normal 15-37 [facility] Comment on above: Performed By: #### 1 69886, 742350, 393128, 281010, 671459, 927573 #### [facility] [address] [place] [address] Medical Technician Assistant: Woody Leyva MD GPT 45 unit/L Normal 10-49 [facility] Comment on above: Performed By: #### 1 07341, 582720, 810365, 342725, 573350, 608897 #### [facility] [address] [place] [address] Medical Technician Assistant: Woody Leyva MD Osmolality [Osmolality] 292 mosm/kg Normal 275-295 [facility] Comment on above: Performed By: #### 1 03029, 961721, 440610, 796031, 717983, 627645 #### [facility] [address] [place] [address] 96279 Medical Technician Assistant: Woody Leyva MD Potassium [Moles/Vol] 3.6 mmol/L Normal 3.5-5.1 [facility] Comment on above: Result Comment: Spec imen slightly hemolyzed. Results may be affected. Performed By: #### 1 92697, 912920, 767932, 728366, 307143, 979864 #### [facility] [address] [place] [address] 91811 Medical Technician Assistant: Woody Leyva MD Protein [Mass/Vol] 6.3 g/dL Normal 5.7-8.2 [facility] Comment on above: Result Comment: Tota l Protein results may be increased in patients receiving dextran as a blood volume fire prevention officer Performed By: #### 1 14264, 565912, 106844, 588348, 231677, 322206 #### [facility] [address] [place] [address] 06088 Medical Technician Assistant: Woody Leyva MD Sodium [Moles/Vol] 141 mmol/L Normal 135-145 [facility] Comment on above: Performed By: #### 1 74996, 124159, 512958, 532133, 557539, 755276 #### [facility] [address] [place] [address] 78892 Medical Technician Assistant: Woody Leyva MD Urea nitrogen [Mass/Vol] 43 mg/dL High 9-23 [facility] Comment on above: Result Comment: - Ve nipuncture should occur prior to N-Acetyl Cysteine (NAC) or Metamizole (Sulpyrine) administration due to the potential for falsely depressed results. - Blood samples from some patients with monoclonal gammopathies may produce falsely elevated results Performed By: #### 1 73939, 643266, 278216, 496126, 346064, 407261 #### [facility] [address] [place] [address] 80522 Medical Technician Assistant: Woody Leyva MD Urea nitrogen/Creatinine [Mass ratio] 21.5 mg/mg Normal [facility] Comment on above: Performed By: #### 1 18790, 962389, 741049, 927282, 436740, 484420 #### [facility] [address] [place] [address] 60843 Medical Technician Assistant: Woody Leyva MD HEMOon 09-17-2024 DIFF? No Normal [facility] Comment on above: Performed By: #### 7 [id number] #### [facility] [address] [place] [address] 92671 Medical Technician Assistant: Woody Leyva MD Erythrocyte distribution width (RBC) [Ratio] 17.7 % High 11.5-14.5 [facility] Comment on above: Performed By: #### 7 [id number] #### [facility] [address] [place] [address] 24283 Medical Technician Assistant: Woody Leyva MD Hematocrit (Bld) [Volume fraction] 46.5 % Normal 41.0-52.0 [facility] Comment on above: Performed By: #### 7 [id number] #### [facility] [address] [place] [address] 43649 Medical Technician Assistant: Woody Leyva MD Hemoglobin (Bld) [Mass/Vol] 15.1 g/dL Normal 13.5-17.5 [facility] Comment on above: Performed By: #### 7 [id number] #### [facility] [address] [place], [place] [address] Medical Technician Assistant: Woody Leyva MD Instr WBC 7.5 Normal [facility] Comment on above: Performed By: #### 7 [id number] #### [facility] [address] [place], [place] [address] Medical Technician Assistant: Woody Leyva MD MCH (RBC) [Entitic mass] 34.4 pg High 27.0-34.0 [facility] Comment on above: Performed By: #### 7 [id number] #### [facility] [address] [place] [address] Medical Technician Assistant: Woody Leyva MD MCHC (RBC) [Mass/Vol] 32.4 g/dL Normal 32.0-37.0 [facility] Comment on above: Performed By: #### 7 [id number] #### [facility] [address] [place] [address] Medical Technician Assistant: Woody Leyva MD MCV (RBC) [Entitic vol] 106.1 fL High 80.0-100.0 [facility] Comment on above: Performed By: #### 7 [id number] #### [facility] [address] [place] [address] Medical Technician Assistant: Woody Leyva MD MDW 20.98 High 13.98-20.00 [facility] Comment on above: Result Comment: MDW [...] risk of Sepsis. Performed By: #### 7 [id number] #### [facility] [address] [place] [address] 35967 Medical Technician Assistant: Woody Leyva MD Nucleated RBC 0 /100WBC Normal [facility] Comment on above: Performed By: #### 7 [id number] #### [facility] [address] [place] [address] 86228 Medical Technician Assistant: Woody Leyva MD Platelet 236 x10 Normal 150-450 [facility] Comment on above: Performed By: #### 7 [id number] #### [facility] [address] [place] [address] 14101 Medical Technician Assistant: Woody Leyva MD Platelet mean volume (Bld) [Entitic vol] 8.4 fL Normal 7.4-10.4 [facility] Comment on above: Performed By: #### 7 [id number] #### [facility] [address] [place], [place] [address] Medical Technician Assistant: Woody Leyva MD RBC 4.38 x10 Low 4.70-6.10 [facility] Comment on above: Result Comment: Note : RBC morphology is normal unless otherwise stated. Evaluation performed only if differential is requested. Performed By: #### 7 [id number] #### [facility] [address] [place] [address] 65738 Medical Technician Assistant: Woody Leyva MD WBC 7.5 x10 Normal 4.5-11.0 [facility] Comment on above: Performed By: #### 7 [id number] #### [facility] [address] [place] [address] 46746 Medical Technician Assistant: Woody Leyva MD LACTATEon 09-17-2024 Lactate [Moles/Vol] 3.2 mmol/L High 0.5-2.2 [facility] Comment on above: Result Comment: Spec imen icteric. Results may be affected. Venipuncture should occur prior to N-Acetyl Cysteine (NAC) administration due to the potential for falsely depressed results Performed By: #### 1 51411, 102441, [id number] #### [facility] [address] [place] [address] Medical Technician Assistant: Woody Leyva MD LIPon 09-17-2024 Lipase [Catalytic activity/Vol] 20 U/L Normal 12-53 [facility] Comment on above: Performed By: #### 1 82011, 202642, 962738, 285278, 012021, 151635 #### [facility] [address] [place] [address] 42387 Medical Technician Assistant: Woody Leyva MD MG LEVELon 09-17-2024 Magnesium [Mass/Vol] 2.2 mg/dL Normal 1.6-2.6 [facility] Comment on above: Performed By: #### 1 43068, 765749, 890996, 665011, 812936, 422150 #### [facility] [address] [place] [address] 31734 Medical Technician Assistant: Woody Leyva MD Patient Instructionson 09-17 Emission Specialist Authentication Interface Message Text Normal [facility] Progress Noteson 09-17-2024 Emission Specialist Authentication Interface Message Text Identification was verified by patient verbalizing his name and date of . Normal [facility] Emission Specialist Authentication Interface Message Text Normal [facility] SED RATEon 09-17-2024 Sed Rate Westergren 9 mm/hr Normal 0-15 [facility] Comment on above: Performed By: #### 7 [id number] #### [facility] [address] [place] [address] 58594 Medical Technician Assistant: Woody Leyva MD THY GPon 09-17-2024 Free T4 [Mass/Vol] 1.80 ng/dL High 0.89-1.76 [facility] Comment on above: Result Comment: - Th e anticonvulsant drug phenytoin may interfere with total and free T4 levels due to competition for TBG binding sites - Free T4 values may be decreased in patients with non-thyroidal conditions and in patients taking carbamazepine Performed By: #### 1 85225, 563194, 623990, 191447, 997971, 566263 #### [facility] [address] [place] [address] 82415 Medical Technician Assistant: Woody Leyva MD TSH Qn 0.29 m[IU]/L Low 0.55-4.78 [facility] Comment on above: Result Comment: - [...] Reference: [email or web address] (03/2023) Performed By: #### 1 88204, 311333, 385879, 859093, 719194, 146301 #### [facility] [address] [place] [address] 88387 Medical Technician Assistant: Woody Leyva MD TROPONIN HS 0HRon 09-17-2024 Troponin HS 0 Hr 34 pg/mL Normal 3-53 [facility] Comment on above: Result Comment: Spec imens from some individuals with pathologically high gamma globulin levels may demonstrate depressed troponin values Performed By: #### 7 [id number] #### [facility] [address] [place] [address] 26927 Medical Technician Assistant: Woody Leyva MD UAon 09-17-2024 Appearance, U Hazy Abnormal [facility] Comment on above: Performed By: #### 7 [id number] #### [facility] [address] [place] [address] [id number] Medical Technician Assistant: Woody Leyva MD Bilirubin, U 0.5 mg/dl Abnormal Negative [facility] Comment on above: Result Comment: Bili waiet, U: Initial positive urine bilirubin results are not confirmed. Interfering substances may include elevated urobilinogen. Trace = 0.5-1.0 mg/dL Small = 2.0-4.0 mg/dL Moderate = 6.0-8.0 mg/dL Large = 10 mg/dl and greater Performed By: #### 7 [id number] #### [facility] [address] [place] [address] 68604 Medical Technician Assistant: Woody Leyva MD Blood, U Negative Normal Negative [facility] Comment on above: Result Comment: Bloo d, U: Trace = 0.03-0.05 mg/dL Small = 0.06-0.1 mg/dL Moderate = 0.2-0.5 mg/dL Large = 1.0 mg/dL and greater Performed By: #### 7 [id number] #### [facility] [address] [place] [address] 49377 Medical Technician Assistant: Woody Leyva MD Color, U Dark-Yellow Normal Yellow [facility] Comment on above: Performed By: #### 7 [id number] #### [facility] [address] [place] [address] 12399 Medical Technician Assistant: Woody Leyva MD Glucose Qual, U Negative Normal Negative [facility] Comment on above: Performed By: #### 7 [id number] #### [facility] [address] [place] [address] 73056 Medical Technician Assistant: Woody Leyva MD Hyaline Cast 2 #/HPF Normal [facility] Comment on above: Performed By: #### 7 [id number] #### [facility] [address] [place] [address] 70963 Medical Technician Assistant: Woody Leyva MD Ketones, U Negative Normal Negative [facility] Comment on above: Performed By: #### 7 [id number] #### [facility] [address] [place] [place] [id number] Medical Technician Assistant: Woody Leyva MD Leukocyte Esterase, U Negative Normal Negative [facility] Comment on above: Result Comment: Leuk ocyte Esterase, U: Trace = 25 Nicky/uL Small = 75 Nicky/uL Moderate = 250 Nicky/uL Large = 500 Nicky/uL and greater Performed By: #### 7 [id number] #### [facility] [address] [address] Medical Technician Assistant: Woody Leyva MD Mucous, U Occasional Normal [facility] Comment on above: Performed By: #### 7 [id number] #### [facility] [address] [place] [address] Medical Technician Assistant: Woody Leyva MD Nitrite, U Negative Normal Negative [facility] Comment on above: Performed By: #### 7 [id number] #### [facility] [address] [place] [address] Medical Technician Assistant: Woody Leyva MD pH, U 5.5 Normal 4.5-8.0 [facility] Comment on above: Performed By: #### 7 [id number] #### [facility] [address] [place], [place] [id number] Medical Technician Assistant: Woody Leyva MD Protein, U 100 mg/dl Abnormal Negative [facility] Comment on above: Performed By: #### 7 [id number] #### [facility] [address] [place], [place] [id number] Medical Technician Assistant: Woody Leyva MD Specific [place], U 1.032 Normal 1.001-1.035 [facility] Comment on above: Performed By: #### 7 [id number] #### [facility] [address] [place], [place] [id number] Medical Technician Assistant: Woody Leyva MD U MICRO Indicated Normal [facility] Comment on above: Performed By: #### 7 [id number] #### [facility] [address] [place] [address] Medical Technician Assistant: Woody Leyva MD U SPERM Present Normal [facility] Comment on above: Performed By: #### 7 [id number] #### [facility] [address] [place] [address] Medical Technician Assistant: Woody Leyva MD Urobilinogen Qual, U 4 mg/dl Abnormal < 2 mg/dl [facility] Comment on above: Result Comment: Urob ilinogen, U: EU/dl and mg/dl are equivalent units. Performed By: #### 7 [id number] #### [facility] [address] [place] [address] Medical Technician Assistant: Woody Leyva MD WBC/HPF, U 1 #/HPF Normal 0-5 [facility] Comment on above: Performed By: #### 7 [id number] #### [facility] [address] [place] [address] Medical Technician Assistant: Woody Leyva MD XR CHEST PORTABLEon 09-18-19 [...] Jr., MD Signed Out: 09/17/24 20:07:50 Normal [facility] Progress Noteson 09-13-2024 Emission Specialist Authentication Interface Message Text Normal [facility] Progress [facility]on 09-11-2024 Emission Specialist Authentication Interface Message Text Normal [facility] Emission Specialist Authentication Interface Message Text Normal [facility] Progress Notes - NoteWritero n 09-11-2024 Emission Specialist Authentication Interface Message Text Normal [facility] LACTIC ACIDon 09-10-2024 CR LACT 2.6 mmol/L High 0.5-1.6 [facility] Comment on above: Order Comment: This test was developed, and its performance characteristics determined by the [facility] Path[facility] of [facility]. It has not been cleared or approved by the FDA. This test is used for clinical purposes only. Performed By: #### L ACT ####[facility] [id number] [place], [place], Progress Noteson 09-10-2024 Emission Specialist Authentication Interface Message Text Normal [facility] Emission Specialist Authentication Interface Message Text Normal [facility] Progress Notes - NoteWritero n 09-10-2024 Emission Specialist Authentication Interface Message Text Normal [facility] BASIC METABOLIC PANELon 08-28 Anion gap [Moles/Vol] 15 mmol/L Normal 10-20 [facility] Comment on above: Performed By: #### H EPATIC, MG, CH8 ####S PATHOLOGY [id number] [place], Calcium [Mass/Vol] 7.7 mg/dL Low 8.6-10.3 [facility] Comment on above: Performed By: #### H EPATIC MG, CH8 ####[facility] [id number] [place], Chloride [Moles/Vol] 97 mmol/L Low 98-107 [facility] Comment on above: Performed By: #### H EPATIC, MG, CH8 ####[facility] [id number] [place], CO2 [Moles/Vol] 31 mmol/L Normal 21-31 [facility] Comment on above: Performed By: #### H EPATIC MG, CH8 ####[facility] [id number] [place], Creatinine [Mass/Vol] 1.81 mg/dL High 0.70-1.30 [facility] Comment on above: Performed By: #### MG GUNDERSON CH8 ####S PATHOLOGY [id number] [place], ESTIMATED GFR (CKD-EPI) 46 mL/min/1.73sqm Low >=60 [facility] Comment on above: Result Comment: 2020 [...] Inclusion of Race in Diagnosing Kidney Disease. [place] Journal of Kidney Diseases 2021;79(2):268-88.e1.2. N Engl J Med 2020 Vol. 385 Issue 19 Pages 8618-4254 Performed By: #### MG GUNDERSON CH8 ####S PATHOLOGY [id number] [place], Glucose [Mass/Vol] 110 mg/dL High 74-109 [facility] Comment on above: Performed By: #### MG GUNDERSON CH8 ####[facility] [id number] [place], Potassium [Moles/Vol] 3.9 mmol/L Normal 3.5-5.0 [facility] Comment on above: Performed By: #### MG GUNDERSON CH8 ####S PATHOLOGY [id number] [place], Sodium [Moles/Vol] 139 mmol/L Normal 136-145 [facility] Comment on above: Performed By: #### MG GUNDERSON CH8 ####[facility] [id number] [place], Urea nitrogen [Mass/Vol] 36 mg/dL High 7-25 [facility] Comment on above: Performed By: #### MG GUNDERSON CH8 ####[facility] [id number] [place], CBC WITH DIFFERENTIALon 03-1 3-2025 Basophils (Bld) [#/Vol] 0.07 10*3/uL Normal 0.00-0.20 [facility] Comment on above: Performed By: #### C BCDSAT ####[facility] [id number] [place], Basophils/100 WBC (Bld) 0.8 % Normal <=1.9 [facility] Comment on above: Performed By: #### C GARRETTDSAT ####[facility] [id number] [place] [address], Eosinophils (Bld) [#/Vol] 0.09 10*3/uL Normal 0.00-0.70 [facility] Comment on above: Performed By: #### C BCDSAT ####[facility] [id number] [place] [address], Eosinophils/100 WBC (Bld) 1.0 % Normal 0.1-4.0 [facility] Comment on above: Performed By: #### C BCDSAT ####[facility] [id number] [place] [address], Erythrocyte distribution width (RBC) [Ratio] 13.8 % Normal 11.5-14.5 [facility] Comment on above: Performed By: #### C BCDSAT ####[facility] [id number] [place], Hematocrit (Bld) [Volume fraction] 43.5 % Normal 41.0-53.0 [facility] Comment on above: Performed By: #### C BCDSAT ####[facility] [id number] [place] [address], Hemoglobin (Bld) [Mass/Vol] 14.7 g/dL Normal 13.9-16.3 [facility] Comment on above: Performed By: #### C BCDSAT ####[facility] [id number] [place] [address], Lymphocytes (Bld) [#/Vol] 2.51 10*3/uL Normal 1.00-4.80 [facility] Comment on above: Performed By: #### C BCDSAT ####[facility] [id number] [place], Lymphocytes/100 WBC (Bld) 28.5 % Normal 24.0-44.0 [facility] Comment on above: Performed By: #### C BCDSAT ####[facility] [id number] [place], MCH (RBC) [Entitic mass] 34.4 pg High 26.0-34.0 [facility] Comment on above: Performed By: #### C BCDSAT ####[facility] [id number] [place], MCHC (RBC) [Mass/Vol] 33.9 g/dL Normal 32.0-35.9 [facility] Comment on above: Performed By: #### C BCDSAT ####[facility] [id number] [place], MCV (RBC) [Entitic vol] 102 fL High 80-100 [facility] Comment on above: Performed By: #### C BCDSAT ####[facility] [id number] [place], Monocytes (Bld) [#/Vol] 0.69 10*3/uL Normal 0.20-1.00 [facility] Comment on above: Performed By: #### C BCDSAT ####[facility] [id number] [place], Monocytes/100 WBC (Bld) 7.8 % Normal 2.0-11.0 [facility] Comment on above: Performed By: #### C BCDSAT ####[facility] [id number] [place], Neutrophils (Bld) [#/Vol] 5.46 10*3/uL Normal 1.50-8.00 [facility] Comment on above: Performed By: #### C BCDSAT ####[facility] [id number] [place], Neutrophils/100 WBC (Bld) 61.9 % Normal 31.0-76.0 [facility] Comment on above: Performed By: ###Gonzalez HERNANDEZAT ####[facility] [id number] [place], Platelet mean volume (Bld) [Entitic vol] 7.7 fL Normal 7.5-11.2 [facility] Comment on above: Performed By: #### Kelly HERNANDEZAT ####[facility] [id number] [place] [address], Platelets (Bld) [#/Vol] 278 10*3/uL Normal 150-400 [facility] Comment on above: Performed By: #### Kelly HERNANDEZAT ####[facility] [id number] [place] [address], RBC (Bld) [#/Vol] 4.28 10*6/uL Low 4.50-5.90 [facility] Comment on above: Performed By: ###Gonzalez HERNANDEZAT ####[facility] [id number] [place] [address], WBC (Bld) [#/Vol] 8.8 10*3/uL Normal 4.5-11.5 [facility] Comment on above: Performed By: ###Gonzalez HERNANDEZAT ####[facility] [id number] [place] [address], HEPATIC FUNCTION PANELon Albumin [Mass/Vol] 3.6 g/dL Normal 3.5-5.7 [facility] Comment on above: Performed By: #### MG NEPTALI, CH8 ####S PATHOLOGY [id number] [place] [address], ALK 202 IU/L High 34-104 [facility] Comment on above: Performed By: #### MG NEPTALI, CH8 ####S PATHOLOGY [id number] [place] [address], ALT [Catalytic activity/Vol] 37 U/L Normal 7-52 [facility] Comment on above: Performed By: #### MG NEPTALI, CH8 ####[facility] [id number] [place] [address], AST [Catalytic activity/Vol] 24 U/L Normal 13-39 [facility] Comment on above: Performed By: #### H MG TICO, CH8 ####[facility] [id number] [place], Bilirubin [Mass/Vol] 2.2 mg/dL High 0.3-1.0 [facility] Comment on above: Performed By: #### MG NEPTALI, CH8 ####[facility] [id number] [place] [address], Bilirubin.direct [Mass/Vol] 0.79 mg/dL High 0.03-0.18 [facility] Comment on above: Performed By: #### MG NEPTALI, CH8 ####[facility] [id number] [place] [address], Protein [Mass/Vol] 6.1 g/dL Normal 6.0-8.3 [facility] Comment on above: Performed By: #### H MG TICO, CH8 ####[facility] [id number] [place] [address], MAGNESIUMon 09-09-2024 Magnesium [Mass/Vol] 1.5 mg/dL Low 1.9-2.7 [facility] Comment on above: Performed By: #### MG NEPTALI, CH8 ####[facility] [id number] [place] [address], PROTHROMBIN TIME AND INRon 0 09-09-2024 INR Coag (PPP) [Relative time] 1.24 {INR} High 0.90-1.10 [facility] Comment on above: Performed By: #### P T ####[facility] [id number] [place] [address], PT Coag (PPP) [Time] 13.9 s High 9.7-12.9 [facility] Comment on above: Performed By: #### P T ####[facility] [id number] [place] [address], Progress Noteson 09-09-2024 Emission Specialist Authentication Interface Message Text Normal [facility] Emission Specialist Authentication Interface Message Text Normal [facility] Progress Notes - NoteWritero n 09-09-2024 Emission Specialist Authentication Interface Message Text Pt had 5 beats of NSVT on telemetry. When assessed, pt was laying supine with no complaints of being symptomatic. Chrissy DO notified. No further orders at this time. Normal [facility] BASIC METABOLIC PANELon 08-28 Anion gap [Moles/Vol] 17 mmol/L Normal 10-20 [facility] Comment on above: Performed By: #### H EPATIC, MG, CH8 ####[facility] [id number] [place], Calcium [Mass/Vol] 7.9 mg/dL Low 8.6-10.3 [facility] Comment on above: Performed By: #### H EPATIC, MG, CH8 ####[facility] [id number] [place], Chloride [Moles/Vol] 96 mmol/L Low 98-107 [facility] Comment on above: Performed By: #### H EPATIC, MG, CH8 ####S PATHOLOGY [id number] [place], CO2 [Moles/Vol] 32 mmol/L High 21-31 [facility] Comment on above: Performed By: #### H EPATIC, MG, CH8 ####[facility] [id number] [place], Creatinine [Mass/Vol] 1.68 mg/dL High 0.70-1.30 [facility] Comment on above: Performed By: #### H EPATIC, MG, CH8 ####[facility] [id number] [place], ESTIMATED GFR (CKD-EPI) 50 mL/min/1.73sqm Low >=60 [facility] Comment on above: Result Comment: 2020 [...] Inclusion of Race in Diagnosing Kidney Disease. [place] Journal of Kidney Diseases 2021;79(2):268-88.e1.2. N Engl J Med 2020 Vol. 385 Issue 19 Pages 0995-9601 Performed By: #### MG GUNDERSON CH8 ####S PATHOLOGY [id number] [place], Glucose [Mass/Vol] 101 mg/dL Normal 74-109 [facility] Comment on above: Performed By: #### MG GUNDERSON CH8 ####S PATHOLOGY [id number] [place], Potassium [Moles/Vol] 4.1 mmol/L Normal 3.5-5.0 [facility] Comment on above: Performed By: #### MG GUNDERSON CH8 ####S PATHOLOGY [id number] [place], Sodium [Moles/Vol] 141 mmol/L Normal 136-145 [facility] Comment on above: Performed By: #### MG GUNDERSON CH8 ####S PATHOLOGY [id number] [place], Urea nitrogen [Mass/Vol] 34 mg/dL High 7-25 [facility] Comment on above: Performed By: #### MG NEPTALI, FERNANDO8 ####S PATHOLOGY [id number] [place], CBC WITH DIFFERENTIALon 08-28 Basophils (Bld) [#/Vol] 0.06 10*3/uL Normal 0.00-0.20 [facility] Comment on above: Performed By: #### Kelly BCDSAT ####[facility] [id number] [place], Basophils/100 WBC (Bld) 0.7 % Normal <=1.9 [facility] Comment on above: Performed By: #### Kelly BCDSAT ####[facility] [id number] [place], Eosinophils (Bld) [#/Vol] 0.07 10*3/uL Normal 0.00-0.70 [facility] Comment on above: Performed By: #### C BCDSAT ####[facility] [id number] [place], Eosinophils/100 WBC (Bld) 0.8 % Normal 0.1-4.0 [facility] Comment on above: Performed By: #### C BCDSAT ####[facility] [id number] [place], Erythrocyte distribution width (RBC) [Ratio] 13.6 % Normal 11.5-14.5 [facility] Comment on above: Performed By: #### C BCDSAT ####[facility] [id number] [place] [address], Hematocrit (Bld) [Volume fraction] 43.0 % Normal 41.0-53.0 [facility] Comment on above: Performed By: #### C BCDSAT ####[facility] [id number] [place] [address], Hemoglobin (Bld) [Mass/Vol] 14.4 g/dL Normal 13.9-16.3 [facility] Comment on above: Performed By: #### C BCDSAT ####[facility] [id number] [place], Lymphocytes (Bld) [#/Vol] 2.29 10*3/uL Normal 1.00-4.80 [facility] Comment on above: Performed By: #### C BCDSAT ####[facility] [id number] [place], Lymphocytes/100 WBC (Bld) 27.3 % Normal 24.0-44.0 [facility] Comment on above: Performed By: #### C BCDSAT ####[facility] [id number] [place], MCH (RBC) [Entitic mass] 34.4 pg High 26.0-34.0 [facility] Comment on above: Performed By: #### C BCDSAT ####[facility] [id number] [place], MCHC (RBC) [Mass/Vol] 33.4 g/dL Normal 32.0-35.9 [facility] Comment on above: Performed By: #### C BCDSAT ####[facility] [id number] [place], MCV (RBC) [Entitic vol] 103 fL High 80-100 [facility] Comment on above: Performed By: #### C BCDSAT ####[facility] [id number] [place], Monocytes (Bld) [#/Vol] 0.77 10*3/uL Normal 0.20-1.00 [facility] Comment on above: Performed By: #### C BCDSAT ####[facility] [id number] [place], Monocytes/100 WBC (Bld) 9.1 % Normal 2.0-11.0 [facility] Comment on above: Performed By: #### C BCDSAT ####[facility] [id number] [place] [address], Neutrophils (Bld) [#/Vol] 5.21 10*3/uL Normal 1.50-8.00 [facility] Comment on above: Performed By: #### C BCDSAT ####[facility] [id number] [place] [address], Neutrophils/100 WBC (Bld) 62.1 % Normal 31.0-76.0 [facility] Comment on above: Performed By: #### C BCDSAT ####S PATHOLOGY [id number] [place], Platelet mean volume (Bld) [Entitic vol] 8.1 fL Normal 7.5-11.2 [facility] Comment on above: Performed By: #### C BCDSAT ####S PATHOLOGY [id number] [place], Platelets (Bld) [#/Vol] 278 10*3/uL Normal 150-400 [facility] Comment on above: Performed By: #### Kelly HERNANDEZAT ####S PATHOLOGY [id number] [place], RBC (Bld) [#/Vol] 4.19 10*6/uL Low 4.50-5.90 [facility] Comment on above: Performed By: #### Kelly HERNANDEZAT ####[facility] [id number] [place], WBC (Bld) [#/Vol] 8.4 10*3/uL Normal 4.5-11.5 [facility] Comment on above: Performed By: #### Kelly HERNANDEZAT ####[facility] [id number] [place], H AND Timo 09-08-2024 Emission Specialist Authentication Interface Message Text Normal [facility] HEPATIC FUNCTION PANELon Albumin [Mass/Vol] 3.7 g/dL Normal 3.5-5.7 [facility] Comment on above: Performed By: #### MG NEPTALI, CH8 ####[facility] [id number] [place], ALK 247 IU/L High 34-104 [facility] Comment on above: Performed By: #### Bonilla DOSHI MG, CH8 ####S PATHOLOGY [id number] [place], ALT [Catalytic activity/Vol] 42 U/L Normal 7-52 [facility] Comment on above: Performed By: #### Bonilla DOSHI MG, CH8 ####S PATHOLOGY [id number] [place], AST [Catalytic activity/Vol] 27 U/L Normal 13-39 [facility] Comment on above: Performed By: #### Bonilla DOSHI MG, CH8 ####S PATHOLOGY [id number] [place], Bilirubin [Mass/Vol] 2.2 mg/dL High 0.3-1.0 [facility] Comment on above: Performed By: #### H MG TICO, CH8 ####[facility] [id number] [place] [address], Bilirubin.direct [Mass/Vol] 0.85 mg/dL High 0.03-0.18 [facility] Comment on above: Performed By: #### H MG TICO, CH8 ####[facility] [id number] [place] [address], Protein [Mass/Vol] 6.4 g/dL Normal 6.0-8.3 [facility] Comment on above: Performed By: #### H MG TICO, FERNANDO8 ####[facility] [id number] [place] [address], LACTIC ACIDon 09-08-2024 CR LACT 2.6 mmol/L High 0.5-1.6 [facility] Comment on above: Order Comment: This test was developed, and its performance characteristics determined by the Department of Pathology of [facility]. It has not been cleared or approved by the FDA. This test is used for clinical purposes only. Performed By: #### L ACT ####[facility] [id number] [place] [address], MAGNESIUMon 09-08-2024 Magnesium [Mass/Vol] 1.4 mg/dL Low 1.9-2.7 [facility] Comment on above: Performed By: #### H MG TICO, 8 ####[facility] [id number] [place] [address], PROTHROMBIN TIME AND INRon 0 09-08-2024 INR Coag (PPP) [Relative time] 1.21 {INR} High 0.90-1.10 [facility] Comment on above: Performed By: #### P T ####[facility] [id number] [place] [address], PT Coag (PPP) [Time] 13.5 s High 9.7-12.9 [facility] Comment on above: Performed By: #### P T ####[facility] [id number] [place] [address], Progress Noteson 09-08-2024 Emission Specialist Authentication Interface Message Text Pt had 5 beats of NSVT on telemetry. Pt observed laying down in bed, reports being asymptomatic. Chrissy DO notified. No further orders at this time. Normal [facility] Emission Specialist Authentication Interface Message Text Normal [facility] Disruptive Behavior Progress Noteon 09-07-2024 Emission Specialist Authentication Interface Message Text Normal [facility] Progress Noteson 09-07-2024 Emission Specialist Authentication Interface Message Text Normal [facility] Emission Specialist Authentication Interface Message Text Normal [facility] Transfer Noteon 09-07-2024 Emission Specialist Authentication Interface Message Text Normal [facility] BASIC METABOLIC PANELon 08-28 Anion gap [Moles/Vol] 17 mmol/L Normal 10-20 [facility] Comment on above: Performed By: #### C H8, HEPATIC, MG ####[facility] [id number] [place], Calcium [Mass/Vol] 8.0 mg/dL Low 8.6-10.3 [facility] Comment on above: Performed By: #### C H8, HEPATIC, MG ####[facility] [id number] [place], Chloride [Moles/Vol] 96 mmol/L Low 98-107 [facility] Comment on above: Performed By: #### C H8, HEPATIC, MG ####[facility] [id number] [place], CO2 [Moles/Vol] 29 mmol/L Normal 21-31 [facility] Comment on above: Performed By: #### C H8, HEPATIC, MG ####[facility] [id number] [place], Creatinine [Mass/Vol] 1.85 mg/dL High 0.70-1.30 [facility] Comment on above: Performed By: #### C H8, HEPATIC, MG ####[facility] [id number] [place], ESTIMATED GFR (CKD-EPI) 45 mL/min/1.73sqm Low >=60 [facility] Comment on above: Result Comment: 2020 [...] Inclusion of Race in Diagnosing Kidney Disease. [place] Journal of Kidney Diseases 2021;79(2):268-88.e1.2. N Engl J Med 2020 Vol. 385 Issue 19 Pages 0950-3167 Performed By: #### C H8, HEPATIC, MG ####[facility] [id number] [place], Glucose [Mass/Vol] 133 mg/dL High 74-109 [facility] Comment on above: Performed By: #### C H8, HEPATIC, MG ####[facility] [id number] [place], Potassium [Moles/Vol] 3.9 mmol/L Normal 3.5-5.0 [facility] Comment on above: Performed By: #### C H8, HEPATIC, MG ####[facility] [id number] [place], Sodium [Moles/Vol] 138 mmol/L Normal 136-145 [facility] [facility] Comment on above: Performed By: #### C H8, HEPATIC, MG ####[facility] [id number] [place], [place], Urea nitrogen [Mass/Vol] 39 mg/dL High 7-25 [facility] Comment on above: Performed By: #### C H8, HEPATIC, MG ####[facility] [id number] [place], Anion gap [Moles/Vol] 17 mmol/L Normal 10-20 [facility] Comment on above: Performed By: #### C H8, HEPATIC, MG ####[facility] [id number] [place], Calcium [Mass/Vol] 8.2 mg/dL Low 8.6-10.3 [facility] Comment on above: Performed By: #### C H8, HEPATIC, MG ####[facility] [id number] [place], Chloride [Moles/Vol] 98 mmol/L Normal 98-107 [facility] Comment on above: Performed By: #### C H8, HEPATIC, MG ####[facility] [id number] [place], CO2 [Moles/Vol] 29 mmol/L Normal 21-31 [facility] Comment on above: Performed By: #### C H8, HEPATIC, MG ####[facility] [id number] [place], Creatinine [Mass/Vol] 1.93 mg/dL High 0.70-1.30 [facility] Comment on above: Performed By: #### C H8, HEPATIC, MG ####[facility] [id number] [place], ESTIMATED GFR (CKD-EPI) 43 mL/min/1.73sqm Low >=60 [facility] Comment on above: Result Comment: 2020 [...] Inclusion of Race in Diagnosing Kidney Disease. [place] Journal of Kidney Diseases 2021;79(2):268-88.e1.2. N Engl J Med 1 Vol. 385 Issue 19 Pages 1440-3986 Performed By: #### C H8, HEPATIC, MG ####[facility] [id number] [place], Glucose [Mass/Vol] 133 mg/dL High 74-109 [facility] Comment on above: Performed By: #### C H8, HEPATIC, MG ####[facility] [id number] [place], Potassium [Moles/Vol] 3.8 mmol/L Normal 3.5-5.0 [facility] Comment on above: Performed By: #### Kelly Simon, HEPATIC, MG ####[facility] [id number] [place], Sodium [Moles/Vol] 140 mmol/L Normal 136-145 [facility] Comment on above: Performed By: #### Kelly Simon, HEPATIC, MG ####S PATHOLOGY [id number] [place], Urea nitrogen [Mass/Vol] 44 mg/dL High 7-25 [facility] Comment on above: Performed By: #### Kelly Simon, HEPATIC, MG ####[facility] [id number] [place], CBC WITH DIFFERENTIALon 08-28 0-2024 Basophils (Bld) [#/Vol] 0.03 10*3/uL Normal 0.00-0.20 [facility] Comment on above: Performed By: #### C BCDSAT ####[facility] PATH[facility] [id number] [place], Basophils/100 WBC (Bld) 0.3 % Normal <=1.9 [facility] Comment on above: Performed By: #### C BCDSAT ####[facility] PATH[facility] [id number] [place], Eosinophils (Bld) [#/Vol] 0.06 10*3/uL Normal 0.00-0.70 [facility] Comment on above: Performed By: #### C BCDSAT ####S PATHOLOGY [id number] [place], Eosinophils/100 WBC (Bld) 0.8 % Normal 0.1-4.0 [facility] Comment on above: Performed By: #### C BCDSAT ####S PATHOLOGY [id number] [place], Erythrocyte distribution width (RBC) [Ratio] 13.9 % Normal 11.5-14.5 [facility] Comment on above: Performed By: #### C BCDSAT ####[facility] PATH[facility] [id number] [place], Hematocrit (Bld) [Volume fraction] 43.9 % Normal 41.0-53.0 [facility] Comment on above: Performed By: #### C BCDSAT ####[facility] PATH[facility] [id number] [place], Hemoglobin (Bld) [Mass/Vol] 14.8 g/dL Normal 13.9-16.3 [facility] Comment on above: Performed By: #### C BCDSAT ####[facility] PATH[facility] [id number] [place], Lymphocytes (Bld) [#/Vol] 1.80 10*3/uL Normal 1.00-4.80 [facility] Comment on above: Performed By: #### C BCDSAT ####[facility] PATHOLOGY [id number] [place] [address], Lymphocytes/100 WBC (Bld) 23.3 % Low 24.0-44.0 [facility] Comment on above: Performed By: #### C BCDSAT ####[facility] PATHOLOG[facility] [id number] [place], MCH (RBC) [Entitic mass] 34.3 pg High 26.0-34.0 [facility] Comment on above: Performed By: #### C BCDSAT ####[facility] PATHOLOGY [id number] [place] [address], MCHC (RBC) [Mass/Vol] 33.7 g/dL Normal 32.0-35.9 [facility] Comment on above: Performed By: #### C BCDSAT ####S PATHOLOGY [id number] [place], MCV (RBC) [Entitic vol] 102 fL High 80-100 [facility] Comment on above: Performed By: #### C BCDSAT ####S PATHOLOGY [id number] [place], Monocytes (Bld) [#/Vol] 0.57 10*3/uL Normal 0.20-1.00 [facility] Comment on above: Performed By: #### Kelly HERNANDEZAT ####[facility] PATH[facility] [id number] [place], Monocytes/100 WBC (Bld) 7.3 % Normal 2.0-11.0 [facility] Comment on above: Performed By: #### Kelly HERNANDEZAT ####[facility] PATH[facility] [id number] [place] [address], Neutrophils (Bld) [#/Vol] 5.27 10*3/uL Normal 1.50-8.00 [facility] Comment on above: Performed By: #### Kelly HERNANDEZAT ####[facility] PATHOLOG[facility] [id number] [place] [address], Neutrophils/100 WBC (Bld) 68.2 % Normal 31.0-76.0 [facility] Comment on above: Performed By: #### Kelly HERNANDEZAT ####[facility] PATHOLOG[facility] [id number] [place] [address], Platelet mean volume (Bld) [Entitic vol] 7.4 fL Low 7.5-11.2 [facility] Comment on above: Performed By: #### Kelly HERNANDEZAT ####[facility] PATH[facility] [id number] [place], Platelets (Bld) [#/Vol] 268 10*3/uL Normal 150-400 [facility] Comment on above: Performed By: #### Kelly HERNANDEZAT ####[facility] PATH[facility] [id number] [place], RBC (Bld) [#/Vol] 4.31 10*6/uL Low 4.50-5.90 [facility] Comment on above: Performed By: #### Kelly HERNANDEZAT ####[facility] PATH[facility] [id number] [place], WBC (Bld) [#/Vol] 7.7 10*3/uL Normal 4.5-11.5 [facility] Comment on above: Performed By: #### Kelly HERNANDEZAT ####[facility] PATH[facility] [id number] [place], Basophils (Bld) [#/Vol] 0.04 10*3/uL Normal 0.00-0.20 [facility] Comment on above: Performed By: #### C BCDSAT ####[facility] PATH[facility] [id number] [place], Basophils/100 WBC (Bld) 0.6 % Normal <=1.9 [facility] Comment on above: Performed By: #### C BCDSAT ####[facility] PATH[facility] [id number] [place], Eosinophils (Bld) [#/Vol] 0.04 10*3/uL Normal 0.00-0.70 [facility] Comment on above: Performed By: #### C BCDSAT ####[facility] PATHOLOG[facility] [id number] [place] [address], Eosinophils/100 WBC (Bld) 0.6 % Normal 0.1-4.0 [facility] Comment on above: Performed By: #### C BCDSAT ####[facility] PATH[facility] [id number] [place], Erythrocyte distribution width (RBC) [Ratio] 13.9 % Normal 11.5-14.5 [facility] Comment on above: Performed By: #### C BCDSAT ####[facility] PATH[facility] [id number] [place], Hematocrit (Bld) [Volume fraction] 42.7 % Normal 41.0-53.0 [facility] Comment on above: Performed By: #### C BCDSAT ####[facility] PATH[facility] [id number] [place], Hemoglobin (Bld) [Mass/Vol] 14.6 g/dL Normal 13.9-16.3 [facility] Comment on above: Performed By: #### C BCDSAT ####[facility] PATH[facility] [id number] [place], Lymphocytes (Bld) [#/Vol] 1.71 10*3/uL Normal 1.00-4.80 [facility] Comment on above: Performed By: #### C BCDSAT ####[facility] PATH[facility] [id number] [place], Lymphocytes/100 WBC (Bld) 24.1 % Normal 24.0-44.0 [facility] Comment on above: Performed By: #### C BCDSAT ####[facility] PATH[facility] [id number] [place], MCH (RBC) [Entitic mass] 34.2 pg High 26.0-34.0 [facility] Comment on above: Performed By: #### C BCDSAT ####[facility] PATHOLOG[facility] [id number] [place] [address], MCHC (RBC) [Mass/Vol] 34.1 g/dL Normal 32.0-35.9 [facility] Comment on above: Performed By: #### C BCDSAT ####[facility] PATH[facility] [id number] [place] [address], MCV (RBC) [Entitic vol] 100 fL Normal 80-100 [facility] Comment on above: Performed By: #### C BCDSAT ####[facility] PATHOLOG[facility] [id number] [place] [address], Monocytes (Bld) [#/Vol] 0.62 10*3/uL Normal 0.20-1.00 [facility] Comment on above: Performed By: #### C BCDSAT ####[facility] PATHOLOG[facility] [id number] [place] [address], Monocytes/100 WBC (Bld) 8.8 % Normal 2.0-11.0 [facility] Comment on above: Performed By: #### C BCDSAT ####[facility] PATHOLOG[facility] [id number] [place] [address], Neutrophils (Bld) [#/Vol] 4.66 10*3/uL Normal 1.50-8.00 [facility] Comment on above: Performed By: #### C BCDSAT ####S PATHOLOGY [id number] [place] [address], Neutrophils/100 WBC (Bld) 66.0 % Normal 31.0-76.0 [facility] Comment on above: Performed By: ###Gonzalez HERNANDEZAT ####[facility] PATH[facility] [id number] [place], Platelet mean volume (Bld) [Entitic vol] 7.8 fL Normal 7.5-11.2 [facility] Comment on above: Performed By: #### Kelly HERNANDEZAT ####[facility] PATH[facility] [id number] [place], Platelets (Bld) [#/Vol] 279 10*3/uL Normal 150-400 [facility] Comment on above: Performed By: #### Kelly HERNANDEZAT ####[facility] PATH[facility] [id number] [place], RBC (Bld) [#/Vol] 4.26 10*6/uL Low 4.50-5.90 [facility] Comment on above: Performed By: #### Kelly HERNANDEZAT ####[facility] PATH[facility] [id number] [place], WBC (Bld) [#/Vol] 7.1 10*3/uL Normal 4.5-11.5 [facility] Comment on above: Performed By: ###Gonzalez HERNANDEZAT ####[facility] [id number] [place], H AND Timo 09-06-2024 Emission Specialist Authentication Interface Message Text Normal [facility] HEPATIC FUNCTION PANELon Albumin [Mass/Vol] 3.7 g/dL Normal 3.5-5.7 [facility] Comment on above: Performed By: #### Kelly Simon, HEPATIC, MG ####S PATHOLOGY [id number] [place], ALK 224 IU/L High 34-104 [facility] Comment on above: Performed By: #### Kelly H8, HEPATIC, MG ####S PATHOLOGY [id number] [place], ALT [Catalytic activity/Vol] 44 U/L Normal 7-52 [facility] Comment on above: Performed By: #### C H8, HEPATIC, MG ####[facility] [id number] [place], AST [Catalytic activity/Vol] 25 U/L Normal 13-39 [facility] Comment on above: Performed By: #### C H8, HEPATIC, MG ####S PATHOLOGY [id number] [place], Bilirubin [Mass/Vol] 2.4 mg/dL High 0.3-1.0 [facility] Comment on above: Performed By: #### C HGissel, HEPATIC, MG ####[facility] [id number] [place], Bilirubin.direct [Mass/Vol] 0.81 mg/dL High 0.03-0.18 [facility] Comment on above: Performed By: #### C HGissel, HEPATIC, MG ####S PATHOLOGY [id number] [place], Protein [Mass/Vol] 6.4 g/dL Normal 6.0-8.3 [facility] Comment on above: Performed By: #### C HGissel, HEPATIC, MG ####S PATHOLOGY [id number] [place], Albumin [Mass/Vol] 3.6 g/dL Normal 3.5-5.7 [facility] Comment on above: Performed By: #### C HGissel, HEPATIC, MG ####S PATHOLOGY [id number] [place], ALK 233 IU/L High 34-104 [facility] Comment on above: Performed By: #### C H8, HEPATIC, MG ####[facility] [id number] [place], ALT [Catalytic activity/Vol] 46 U/L Normal 7-52 [facility] Comment on above: Performed By: #### C H8, HEPATIC, MG ####[facility] [id number] [place], AST [Catalytic activity/Vol] 25 U/L Normal 13-39 [facility] Comment on above: Performed By: #### C H8, HEPATIC, MG ####S PATHOLOGY [id number] [place], Bilirubin [Mass/Vol] 2.7 mg/dL High 0.3-1.0 [facility] Comment on above: Performed By: #### C H8, HEPATIC, MG ####[facility] PATH[facility] [id number] [place], Bilirubin.direct [Mass/Vol] 1.04 mg/dL High 0.03-0.18 [facility] Comment on above: Performed By: #### C H8, HEPATIC, MG ####[facility] PATH[facility] [id number] [place], Protein [Mass/Vol] 6.4 g/dL Normal 6.0-8.3 [facility] Comment on above: Performed By: #### C H8, HEPATIC, MG ####[facility] PATH[facility] [id number] [place], LACTIC ACIDon 09-06-2024 CR LACT 3.2 mmol/L Critically high 0.5-1.6 [facility] Comment on above: Order Comment: This test was developed, and its performance characteristics determined by the Department of Pathology of [facility]. It has not been cleared or approved by the FDA. This test is used for clinical purposes only. Performed By: #### L ACT ####S PATHOLOGY [id number] [place], CR LACT 4.3 mmol/L Critically high 0.5-1.6 [facility] Comment on above: Order Comment: This test was developed, and its performance characteristics determined by the Department of Pathology of [facility]. It has not been cleared or approved by the FDA. This test is used for clinical purposes only. Performed By: #### L ACT ####S PATHOLOGY [id number] [place], CR LACT 3.4 mmol/L Critically high 0.5-1.6 [facility] Comment on above: Order Comment: This test was developed, and its performance characteristics determined by the Department of Pathology of [facility]. It has not been cleared or approved by the FDA. This test is used for clinical purposes only. Performed By: #### L ACT ####S PATHOLOGY [id number] [place], MAGNESIUMon 09-06-2024 Magnesium [Mass/Vol] 1.4 mg/dL Low 1.9-2.7 [facility] Comment on above: Performed By: #### C H8, HEPATIC, MG ####S PATHOLOGY [id number] [place], Magnesium [Mass/Vol] 1.5 mg/dL Low 1.9-2.7 [facility] Comment on above: Performed By: #### C H8, HEPATIC, MG ####[facility] PATH[facility] [id number] [place], PROTHROMBIN TIME AND INRon 0 09-06-2024 INR Coag (PPP) [Relative time] 1.26 {INR} High 0.90-1.10 [facility] Comment on above: Performed By: #### P T ####[facility] [id number] [place], PT Coag (PPP) [Time] 14.1 s High 9.7-12.9 [facility] Comment on above: Performed By: #### P T ####[facility] [id number] [place], Progress Noteson 09-06-2024 Emission Specialist Authentication Interface Message Text /GREG Lehman notified of critical lactate value of 3.2. /GREG Lehman read back critical results. New orders not received. Normal [facility] Emission Specialist Authentication Interface Message Text Normal [facility] Emission Specialist Authentication Interface Message Text Patient refusing dobutamine infusion at this time. Patient educated on importance of medication by RN. Dr Field notified immediately. Normal [facility] Emission Specialist Authentication Interface Message Text Normal [facility] Emission Specialist Authentication Interface Message Text Patient refusing iv magnesium states I can't be hooked up to anything for 4 hours ' patient aware of need for med and consequences md aware Normal [facility] Emission Specialist Authentication Interface Message Text Normal [facility] Emission Specialist Authentication Interface Message Text Dr. Carlson notified of critical lactic acid value of 3.4. Dr. Carlson read back critical results. New orders not received. Normal [facility] Emission Specialist Authentication Interface Message Text Normal [facility] Emission Specialist Authentication Interface Message Text Normal [facility] Emission Specialist Authentication Interface Message Text Patient refusing AM lab draw, stating only one person is able to get him because he is a hard stick, and unfortunately that person is not here right now. This RN asked patient if he would be willing to let her try, Patient stated no. Dr Tia MD notified. Normal [facility] Transfer Noteon 09-06-2024 Emission Specialist Authentication Interface Message Text Normal [facility] BASIC METABOLIC PANELon Anion gap [Moles/Vol] 19 mmol/L Normal 10-20 [facility] Comment on above: Performed By: #### H AUGUSTO DOSHI, MG ####S PATHOLOGY [id number] [place], Calcium [Mass/Vol] 8.6 mg/dL Normal 8.6-10.3 [facility] Comment on above: Performed By: #### AUGUSTO GUNDERSON, MG ####[facility] [id number] [place], Chloride [Moles/Vol] 95 mmol/L Low 98-107 [facility] Comment on above: Performed By: #### AUGUSTO GUNDERSON, MG ####[facility] [id number] [place], CO2 [Moles/Vol] 27 mmol/L Normal 21-31 [facility] Comment on above: Performed By: #### AUGUSTO GUNDERSON, MG ####[facility] [id number] [place], Creatinine [Mass/Vol] 2.40 mg/dL High 0.70-1.30 [facility] Comment on above: Performed By: #### AUGUSTO GUNDERSON, MG ####[facility] [id number] [place], ESTIMATED GFR (CKD-EPI) 33 mL/min/1.73sqm Low >=60 [facility] Comment on above: Result Comment: 2020 [...] Inclusion of Race in Diagnosing Kidney Disease. [place] Journal of Kidney Diseases 202;79(2):268-88.e1.2. N Engl J Med 1 Vol. 385 Issue 19 Pages 6298-2238 Performed By: #### AUGUSTO GUNDERSON, MG ####[facility] [id number] [place], Glucose [Mass/Vol] 151 mg/dL High 74-109 [facility] Comment on above: Performed By: #### AUGUSTO GUNDERSON, MG ####[facility] [id number] [place], Potassium [Moles/Vol] 3.5 mmol/L Normal 3.5-5.0 [facility] Comment on above: Performed By: #### AUGUSTO GUNDERSON, MG ####[facility] [id number] [place], Sodium [Moles/Vol] 137 mmol/L Normal 136-145 [facility] Comment on above: Performed By: #### AUGUSTO GUNDERSON, MG ####[facility] [id number] [place], Urea nitrogen [Mass/Vol] 49 mg/dL High 7-25 [facility] Comment on above: Performed By: #### AUGUSTO GUNDERSON, MG ####[facility] [id number] [place], CBC WITH DIFFERENTIALon 03-0 Basophils (Bld) [#/Vol] 0.03 10*3/uL Normal 0.00-0.20 [facility] Comment on above: Performed By: #### C BCDSAT ####[facility] [id number] [place], Basophils/100 WBC (Bld) 0.5 % Normal <=1.9 [facility] Comment on above: Performed By: #### C BCDSAT ####[facility] PATH[facility] [id number] [place] [address], Eosinophils (Bld) [#/Vol] 0.03 10*3/uL Normal 0.00-0.70 [facility] Comment on above: Performed By: #### C BCDSAT ####[facility] PATH[facility] [id number] [place] [address], Eosinophils/100 WBC (Bld) 0.4 % Normal 0.1-4.0 [facility] Comment on above: Performed By: #### C BCDSAT ####[facility] PATH[facility] [id number] [place] [address], Erythrocyte distribution width (RBC) [Ratio] 13.9 % Normal 11.5-14.5 [facility] Comment on above: Performed By: #### C BCDSAT ####[facility] PATH[facility] [id number] [place] [address], Hematocrit (Bld) [Volume fraction] 45.3 % Normal 41.0-53.0 [facility] Comment on above: Performed By: #### C BCDSAT ####[facility] [id number] [place] [address], Hemoglobin (Bld) [Mass/Vol] 15.4 g/dL Normal 13.9-16.3 [facility] Comment on above: Performed By: #### C BCDSAT ####[facility] PATH[facility] [id number] [place] [address], Lymphocytes (Bld) [#/Vol] 2.21 10*3/uL Normal 1.00-4.80 [facility] Comment on above: Performed By: #### C BCDSAT ####[facility] [id number] [place] [address], Lymphocytes/100 WBC (Bld) 33.5 % Normal 24.0-44.0 [facility] Comment on above: Performed By: #### C MARYAT ####[facility] [id number] [place], MCH (RBC) [Entitic mass] 34.5 pg High 26.0-34.0 [facility] Comment on above: Performed By: #### C MARYAT ####[facility] [id number] [place], MCHC (RBC) [Mass/Vol] 34.0 g/dL Normal 32.0-35.9 [facility] Comment on above: Performed By: #### Kelly HERNANDEZAT ####[facility] [id number] [place], MCV (RBC) [Entitic vol] 102 fL High 80-100 [facility] Comment on above: Performed By: #### Kelly HERNANDEZAT ####[facility] [id number] [place], Monocytes (Bld) [#/Vol] 0.64 10*3/uL Normal 0.20-1.00 [facility] Comment on above: Performed By: #### Kelly HERNANDEZAT ####[facility] [id number] [place], Monocytes/100 WBC (Bld) 9.7 % Normal 2.0-11.0 [facility] Comment on above: Performed By: #### C MARYAT ####[facility] [id number] [place], Neutrophils (Bld) [#/Vol] 3.69 10*3/uL Normal 1.50-8.00 [facility] Comment on above: Performed By: #### C MARYAT ####S PATHOLOGY [id number] [place], Neutrophils/100 WBC (Bld) 56.0 % Normal 31.0-76.0 [facility] Comment on above: Performed By: #### Kelly HERNANDEZAT ####[facility] [id number] [place], Platelet mean volume (Bld) [Entitic vol] 8.6 fL Normal 7.5-11.2 [facility] Comment on above: Performed By: #### Kelly HERNANDEZAT ####[facility] [id number] [place], Platelets (Bld) [#/Vol] 274 10*3/uL Normal 150-400 [facility] Comment on above: Performed By: #### Kelly HERNANDEZAT ####[facility] [id number] [place], RBC (Bld) [#/Vol] 4.46 10*6/uL Low 4.50-5.90 [facility] Comment on above: Performed By: #### Kelly HERNANDEZAT ####[facility] [id number] [place], WBC (Bld) [#/Vol] 6.6 10*3/uL Normal 4.5-11.5 [facility] Comment on above: Performed By: #### Kelly HERNANDEZAT ####[facility] [id number] [place], Consultson 09-05-2024 Emission Specialist Authentication Interface Message Text Normal [facility] HEPATIC FUNCTION PANELon Albumin [Mass/Vol] 3.8 g/dL Normal 3.5-5.7 [facility] Comment on above: Performed By: #### AUGUSTO GUNDERSON, MG ####S PATHOLOGY [id number] [place], [place], ALK 260 IU/L High 34-104 [facility] Comment on above: Performed By: #### AUGUSTO GUNDERSON, MG ####S PATHOLOGY [id number] [place], ALT [Catalytic activity/Vol] 52 U/L Normal 7-52 [facility] Comment on above: Performed By: #### AUGUSTO GUNDERSON, MG ####S PATHOLOGY [id number] [place], AST [Catalytic activity/Vol] 29 U/L Normal 13-39 [facility] Comment on above: Performed By: #### H AUGUSTO DOSHI, MG ####[facility] PATHOLOGY [id number] [place], Bilirubin [Mass/Vol] 3.4 mg/dL High 0.3-1.0 [facility] Comment on above: Performed By: #### H AUGUSTO DOSHI, MG ####[facility] PATHOLOGY [id number] [place], Bilirubin.direct [Mass/Vol] 1.38 mg/dL High 0.03-0.18 [facility] Comment on above: Performed By: #### H AUGUSTO DOSHI, MG ####[facility] [id number] [place], [place], Protein [Mass/Vol] 6.7 g/dL Normal 6.0-8.3 [facility] Comment on above: Performed By: #### AUGUSTO GUNDERSON, MG ####[facility] [id number] [place], LACTIC ACIDon 09-05-2024 CR LACT 2.4 mmol/L High 0.5-1.6 [facility] Comment on above: Order Comment: This test was developed, and its performance characteristics determined by the Department of Pathology of [facility]. It has not been cleared or approved by the FDA. This test is used for clinical purposes only. Performed By: #### L ACT ####[facility] [id number] [place], [place], CR LACT 2.7 mmol/L High 0.5-1.6 [facility] Comment on above: Order Comment: This test was developed, and its performance characteristics determined by the Department of Pathology of [facility]. It has not been cleared or approved by the FDA. This test is used for clinical purposes only. Performed By: #### L ACT ####S PATHOLOGY [id number] [place], MAGNESIUMon 09-05-2024 Magnesium [Mass/Vol] 1.6 mg/dL Low 1.9-2.7 [facility] Comment on above: Performed By: #### H EPATIC, CH8, MG ####[facility] [id number] [place], PROTHROMBIN TIME AND INRon 0 09-05-2024 INR Coag (PPP) [Relative time] 1.40 {INR} High 0.90-1.10 [facility] Comment on above: Performed By: #### P T ####S PATHOLOGY [id number] [place], [place], PT Coag (PPP) [Time] 15.7 s High 9.7-12.9 [facility] Comment on above: Performed By: #### P T ####[facility] [id number] [place] [address], Progress Noteson 09-05-2024 Emission Specialist Authentication Interface Message Text Normal [facility] Emission Specialist Authentication Interface Message Text Normal [facility] Emission Specialist Authentication Interface Message Text Normal [facility] Emission Specialist Authentication Interface Message Text Pt refused all AM lab draw Nalini Harp MD notified. Normal [facility] US AORTA IVC + DOPPLER(CLARICE)o n 09-05-2024 US AORTA IVC + DOPPLER(CLARICE) Normal [facility] US KIDNEY+BLADDERon 09-06-19 25 US KIDNEY+BLADDER Normal [facility] ALPHA 1 ANTITRYPSIN QUANTon 09-04-2024 A1A 197 mg/dL Normal 84-218 [facility] Comment on above: Performed By: #### A 1A, HEPATIC ####[facility] [id number] [place] [address], ANTIMITOCHONDRIAL SCRN AND T ITon 09-04-2024 ANTI-MITOCHONDRIAL AB Negative Normal Negative [facility] Comment on above: Order Comment: Elect ronically Signed Out by Yobani Yang MD on 09/09/2024.I certify that I personally conducted the diagnostic evaluation of the above specimen(s) and have rendered the final diagnosis(es). Performed By: #### S M MU S/T, AMA S/T ####[facility] [id number] [place], BASIC METABOLIC PANELon 03-0 Anion gap [Moles/Vol] 23 mmol/L High 10-20 [facility] Comment on above: Performed By: #### Kelly Simon MG, CERU ####S PATHOLOGY [id number] [place], Anion gap [Moles/Vol] 21 mmol/L High 10-20 [facility] Comment on above: Performed By: #### Bonilla DOSHI CH8, MG ####[facility] [id number] [place], Calcium [Mass/Vol] 8.7 mg/dL Normal 8.6-10.3 [facility] Comment on above: Performed By: #### Kelly Simon MG, CERU ####[facility] [id number] [place], Calcium [Mass/Vol] 9.0 mg/dL Normal 8.6-10.3 [facility] Comment on above: Performed By: #### Bonilla DOSHI CH8, MG ####[facility] [id number] [place], Chloride [Moles/Vol] 99 mmol/L Normal 98-107 [facility] Comment on above: Performed By: #### Kelly Simon MG, CERU ####[facility] [id number] [place], Chloride [Moles/Vol] 96 mmol/L Low 98-107 [facility] Comment on above: Performed By: #### Bonilla DOSHI, CH8, MG ####S PATHOLOGY [id number] [place], CO2 [Moles/Vol] 17 mmol/L Low 21-31 [facility] Comment on above: Performed By: #### Kelly Simon, MG, CERU ####S PATHOLOGY [id number] [place], CO2 [Moles/Vol] 21 mmol/L Normal 21-31 [facility] Comment on above: Performed By: #### H EPATIC, CH8, MG ####[facility] [id number] [place], Creatinine [Mass/Vol] 2.73 mg/dL High 0.70-1.30 [facility] Comment on above: Performed By: #### C H8, MG, CERU ####[facility] [id number] [place], Creatinine [Mass/Vol] 2.60 mg/dL High 0.70-1.30 [facility] Comment on above: Performed By: #### H EPATIC, CH8, MG ####[facility] [id number] [place], ESTIMATED GFR (CKD-EPI) 28 mL/min/1.73sqm Low >=60 [facility] Comment [...] Inclusion of Race in Diagnosing Kidney Disease. [place] Journal of Kidney Diseases 2021;79(2):268-88.e1.2. N Engl J Med 2020 Vol. 385 Issue 19 Pages 2727-6983 Performed By: #### C H8, MG, CERU ####[facility] [id number] [place], ESTIMATED GFR (CKD-EPI) 30 mL/min/1.73sqm Low >=60 [facility] Comment on above: Result Comment: 2020 [...] Inclusion of Race in Diagnosing Kidney Disease. [place] Journal of Kidney Diseases 2021;79(2):268-88.e1.2. N Engl J Med 1 Vol. 385 Issue 19 Pages 4409-8096 Performed By: #### AUGUSTO GUNDERSON, MG ####[facility] [id number] [place], Glucose [Mass/Vol] 150 mg/dL High 74-109 [facility] Comment on above: Performed By: #### Kelly Simon MG, CERU ####[facility] [id number] [place], Glucose [Mass/Vol] 129 mg/dL High 74-109 [facility] Comment on above: Performed By: #### AUGUSTO GUNDERSON, MG ####[facility] [id number] [place], Potassium [Moles/Vol] 4.6 mmol/L Normal 3.5-5.0 [facility] Comment on above: Performed By: #### Kelly Simon MG, CERU ####[facility] [id number] [place], Potassium [Moles/Vol] 4.3 mmol/L Normal 3.5-5.0 [facility] Comment on above: Performed By: #### AUGUSTO GUNDERSON, MG ####[facility] [id number] [place], Sodium [Moles/Vol] 134 mmol/L Low 136-145 [facility] Comment on above: Performed By: #### Kelly Simon MG, CERU ####[facility] [id number] [place], Performed By: #### AUGUSTO GUNDERSON, MG ####[facility] [id number] [place], Urea nitrogen [Mass/Vol] 51 mg/dL High 7-25 [facility] Comment on above: Performed By: #### Kelly Simon MG, CERU ####[facility] [id number] [place], Urea nitrogen [Mass/Vol] 52 mg/dL High 7-25 [facility] Comment on above: Performed By: #### H TICO, CH8, MG ####[facility] [id number] [place], BLOOD CULTUREon 09-04-2024 Bacteria identified Cx Nom (Bld) C BLOOD: No Growth Normal [facility] Comment on above: Performed By: #### C BLOOD ####[facility] Skzbmtfle9737 [place], [place] CBC WITH DIFFERENTIALon Basophils (Bld) [#/Vol] 0.05 10*3/uL Normal 0.00-0.20 [facility] Comment on above: Performed By: #### C BCDSAT ####[facility] [id number] [place], Basophils/100 WBC (Bld) 0.7 % Normal <=1.9 [facility] Comment on above: Performed By: #### C BCDSAT ####[facility] [id number] [place], Eosinophils (Bld) [#/Vol] 0.03 10*3/uL Normal 0.00-0.70 [facility] Comment on above: Performed By: #### C BCDSAT ####[facility] [id number] [place], Eosinophils/100 WBC (Bld) 0.4 % Normal 0.1-4.0 [facility] Comment on above: Performed By: #### C BCDSAT ####S PATHOLOGY [id number] [place], Erythrocyte distribution width (RBC) [Ratio] 14.2 % Normal 11.5-14.5 [facility] Comment on above: Performed By: #### C BCDSAT ####[facility] [id number] [place], Hematocrit (Bld) [Volume fraction] 44.1 % Normal 41.0-53.0 [facility] Comment on above: Performed By: #### C BCDSAT ####[facility] [id number] [place], Hemoglobin (Bld) [Mass/Vol] 14.7 g/dL Normal 13.9-16.3 [facility] Comment on above: Performed By: #### C BCDSAT ####[facility] [id number] [place], Lymphocytes (Bld) [#/Vol] 2.23 10*3/uL Normal 1.00-4.80 [facility] Comment on above: Performed By: #### C BCDSAT ####[facility] [id number] [place], Lymphocytes/100 WBC (Bld) 31.0 % Normal 24.0-44.0 [facility] Comment on above: Performed By: #### C BCDSAT ####[facility] [id number] [place], MCH (RBC) [Entitic mass] 34.5 pg High 26.0-34.0 [facility] Comment on above: Performed By: #### C BCDSAT ####[facility] [id number] [place], MCHC (RBC) [Mass/Vol] 33.4 g/dL Normal 32.0-35.9 [facility] Comment on above: Performed By: #### C BCDSAT ####[facility] [id number] [place], MCV (RBC) [Entitic vol] 103 fL High 80-100 [facility] Comment on above: Performed By: #### C BCDSAT ####[facility] [id number] [place], Monocytes (Bld) [#/Vol] 0.67 10*3/uL Normal 0.20-1.00 [facility] Comment on above: Performed By: #### C BCDSAT ####[facility] [id number] [place], Monocytes/100 WBC (Bld) 9.2 % Normal 2.0-11.0 [facility] Comment on above: Performed By: #### Kelly BCDSAT ####[facility] [id number] [place], Neutrophils (Bld) [#/Vol] 4.24 10*3/uL Normal 1.50-8.00 [facility] Comment on above: Performed By: #### Kelly TUCKERDSAT ####[facility] [id number] [place] [address], Neutrophils/100 WBC (Bld) 58.7 % Normal 31.0-76.0 [facility] Comment on above: Performed By: #### Kelly TUCKERDSAT ####[facility] [id number] [place] [address], Platelet mean volume (Bld) [Entitic vol] 8.3 fL Normal 7.5-11.2 [facility] Comment on above: Performed By: #### Kelly TUCKERDSAT ####[facility] [id number] [place] [address], Platelets (Bld) [#/Vol] 226 10*3/uL Normal 150-400 [facility] Comment on above: Performed By: #### Kelly HERNANDEZAT ####[facility] [id number] [place] [address], RBC (Bld) [#/Vol] 4.27 10*6/uL Low 4.50-5.90 [facility] Comment on above: Performed By: #### Kelly TUCKERDSAT ####[facility] [id number] [place] [address], WBC (Bld) [#/Vol] 7.2 10*3/uL Normal 4.5-11.5 [facility] Comment on above: Performed By: #### Kelly TUCKERDSAT ####[facility] [id number] [place] [address], CERULOPLASMINon 09-04-2024 CERU 48 mg/dL Normal 20-60 [facility] Comment on above: Performed By: #### Kelly H8, MG, CERU ####[facility] [id number] [place], Care Plan Noteon 09-04-2024 Emission Specialist Authentication Interface Message Text Normal [facility] Emission Specialist Authentication Interface Message Text Normal [facility] Consultson 09-04-2024 Emission Specialist Authentication Interface Message Text Normal [facility] FENA, BLOODon 09-04-2024 Creatinine [Mass/Vol] 2.71 mg/dL High 0.70-1.30 [facility] Comment on above: Performed By: #### F NABEEL ROGERSUREAB ####S PATHOLOGY [id number] [place], Sodium [Moles/Vol] 132 mmol/L Low 136-145 [facility] Comment on above: Performed By: #### F NABEEL ROGERSUREAB ####[facility] [id number] [place], FEUREA, BLOODon 09-04-2024 Urea nitrogen [Mass/Vol] 53 mg/dL High 7-25 [facility] Comment on above: Performed By: #### Сергей ROGERS FEUREAB ####S PATHOLOGY [id number] [place], FRACTIONAL EXCRETION OF SODI UMon 09-04-2024 Creatinine [Mass/Vol] 2.60 mg/dL High 0.70-1.30 [facility] Comment on above: Order Comment: A res ult of <1% often indicates prerenal cause in the setting of SCHUYLER. >2% usually indicates SCHUYLER from tubular causes. Concurrent use of diuretic therapy may limit the utility of the FENa calculation in patients with prerenal disease. Performed By: #### F KATHY ODELLAU\ ####[facility] [id number] [place], Order Comment: A res ult of <35% is consistent with prerenal cause of SCHUYLER. >50% is consistent with tubular causes. Use of FEUrea may be more accurate than FENa in detecting prerenal disease in patients concurrently taking diuretics. CREATININE, URINE 143 mg/dL Normal [facility] Comment on above: Order Comment: A res ult of <1% often indicates prerenal cause in the setting of SCHUYLER. >2% usually indicates SCHUYLER from tubular causes. Concurrent use of diuretic therapy may limit the utility of the FENa calculation in patients with prerenal disease. Performed By: #### F FATUMA ODELL\ ####[facility] [id number] [place], Order Comment: A res ult of <35% is consistent with prerenal cause of SCHUYLER. >50% is consistent with tubular causes. Use of FEUrea may be more accurate than FENa in detecting prerenal disease in patients concurrently taking diuretics. FRACTIONAL EXCRETION OF SODIUM 0.3 % Normal [facility] Comment on above: Order Comment: A res ult of <1% often indicates prerenal cause in the setting of SCHUYLER. >2% usually indicates SCHUYLER from tubular causes. Concurrent use of diuretic therapy may limit the utility of the FENa calculation in patients with prerenal disease. Performed By: #### F FATUMA ODELL\ ####S PATHOLOGY [id number] [place], NA(FENA,BLOOD) 134 mmol/L Low 136-145 [facility] Comment on above: Order Comment: A res ult of <1% often indicates prerenal cause in the setting of SCHUYLER. >2% usually indicates SCHUYLER from tubular causes. Concurrent use of diuretic therapy may limit the utility of the FENa calculation in patients with prerenal disease. Performed By: #### FATUMA HELM\ ####S PATHOLOGY [id number] [place], Sodium [Moles/Vol] 19 mmol/L Normal [facility] Comment on above: Order Comment: A res ult of <1% often indicates prerenal cause in the setting of SCHUYLER. >2% usually indicates SCHUYLER from tubular causes. Concurrent use of diuretic therapy may limit the utility of the FENa calculation in patients with prerenal disease. Performed By: #### F FATUMA ODELL\ ####S PATHOLOGY [id number] [place], FRACTIONAL EXCRETION OF UREA on 09-04-2024 FRACTIONAL EXCRETION OF UREA 23 % Normal [facility] Comment on above: Order Comment: A res ult of <35% is consistent with prerenal cause of SCHUYLER. >50% is consistent with tubular causes. Use of FEUrea may be more accurate than FENa in detecting prerenal disease in patients concurrently taking diuretics. Performed By: #### FATUMA HELM\ ####S PATHOLOGY [id number] [place], UREA NITROGEN, URINE 666 mg/dL Normal [facility] Comment on above: Order Comment: A res ult of <35% is consistent with prerenal cause of SCHUYLER. >50% is consistent with tubular causes. Use of FEUrea may be more accurate than FENa in detecting prerenal disease in patients concurrently taking diuretics. Performed By: #### F FATUMA ODELL\ ####S PATHOLOGY [id number] [place], UREA(BLOOD) 52 mg/dL High 8-22 [facility] Comment on above: Order Comment: A res ult of <35% is consistent with prerenal cause of SCHUYLER. >50% is consistent with tubular causes. Use of FEUrea may be more accurate than FENa in detecting prerenal disease in patients concurrently taking diuretics. Performed By: #### FATUMA HELM\ ####S PATHOLOGY [id number] [place], HEPATIC FUNCTION PANELon Albumin [Mass/Vol] 3.8 g/dL Normal 3.5-5.7 [facility] Comment on above: Performed By: #### Keyon 1A, HEPATIC ####S PATHOLOGY [id number] [place], Albumin [Mass/Vol] 4.0 g/dL Normal 3.5-5.7 [facility] Comment on above: Performed By: #### H EPATIC, CH8, MG ####[facility] [id number] [place], ALK 269 IU/L High 34-104 [facility] Comment on above: Performed By: #### Keyon 1A, HEPATIC ####S PATHOLOGY [id number] [place], ALK 304 IU/L High 34-104 [facility] Comment on above: Performed By: #### H EPATIC, CH8, MG ####[facility] [id number] [place], ALT [Catalytic activity/Vol] 57 U/L High 7 [facility] Comment on above: Performed By: #### Keyon Bird, HEPATIC ####[facility] [id number] [place], ALT [Catalytic activity/Vol] 62 U/L High 7-52 [facility] Comment on above: Performed By: #### Bonilla DOSHI CH8, MG ####[facility] [id number] [place], AST [Catalytic activity/Vol] 64 U/L High 13-39 [facility] Comment on above: Result Comment: Hemo lysis present Performed By: #### Keyon Bird, HEPATIC ####[facility] [id number] [place], AST [Catalytic activity/Vol] 53 U/L High 13-39 [facility] Comment on above: Performed By: #### AUGUSTO GUNDERSON, MG ####[facility] [id number] [place], Bilirubin [Mass/Vol] 3.5 mg/dL High 0.3-1.0 [facility] Comment on above: Performed By: #### Keyon 1A, HEPATIC ####[facility] [id number] [place], Bilirubin [Mass/Vol] 3.9 mg/dL High 0.3-1.0 [facility] Comment on above: Performed By: #### Bonilla DOSHI CH8, MG ####[facility] [id number] [place], Bilirubin.direct [Mass/Vol] 1.03 mg/dL High 0.03-0.18 [facility] Comment on above: Performed By: #### Keyon 1A, HEPATIC ####[facility] [id number] [place], Bilirubin.direct [Mass/Vol] 1.61 mg/dL High 0.03-0.18 [facility] Comment on above: Performed By: #### H EPATIC, CH8, MG ####[facility] [id number] [place], Protein [Mass/Vol] 6.6 g/dL Normal 6.0-8.3 [facility] Comment on above: Performed By: #### A 1A, HEPATIC ####[facility] [id number] [place], Protein [Mass/Vol] 7.1 g/dL Normal 6.0-8.3 [facility] Comment on above: Performed By: #### H EPATIC, CH8, MG ####[facility] [id number] [place], HIGH SENSITIVITY TROPONIN Io n 09-04-2024 HS TROPONIN I 38 ng/L High <=15 [facility] Comment on above: Order Comment: [place] monalisa troponin can result from acute myocardial [...] provider judgement. Performed By: #### H STRP ####[facility] [id number] [place], LACTIC ACIDon 09-04-2024 CR LACT 2.6 mmol/L High 0.5-1.6 [facility] Comment on above: Order Comment: This test was developed, and its performance characteristics determined by the Department of Pathology of [facility]. It has not been cleared or approved by the FDA. This test is used for clinical purposes only. Performed By: #### L ACT ####[facility] [id number] [place] [address], MAGNESIUMon 09-04-2024 Magnesium [Mass/Vol] 1.9 mg/dL Normal 1.9-2.7 [facility] Comment on above: Performed By: #### C H8, MG, CERU ####[facility] [id number] [place], Performed By: #### H EPATIC, CH8, MG ####[facility] [id number] [place], POTASSIUM, RANDOM URINEon POTASSIUM, URINE 52 mmol/L Normal 10-160 [facility] Comment on above: Performed By: #### K RU, NA RU ####[facility] [id number] [place], PROTHROMBIN TIME AND INRon 0 09-04-2024 INR Coag (PPP) [Relative time] 1.39 {INR} High 0.90-1.10 [facility] Comment on above: Performed By: #### P T ####[facility] [id number] [place] [address], PT Coag (PPP) [Time] 15.6 s High 9.7-12.9 [facility] Comment on above: Performed By: #### P T ####[facility] [id number] [place], Progress Noteson 09-04-2024 Emission Specialist Authentication Interface Message Text Pt refused 2100 lab draw Nalini Harp MD notified. Normal [facility] Emission Specialist Authentication Interface Message Text Normal [facility] SMOOTH MUSC ATB SCRN AND TIT [employer] 09-04-2024 ANTI-SMA SCREEN Negative Normal Negative [facility] Comment on above: Order Comment: Negat dai SMA test does not exclude the possibility of chronic liver disease. .I certify that I personally conducted the diagnostic evaluation of the above specimen(s) and have rendered the final diagnosis(es). Performed By: #### S M MU S/T, AMA S/T ####[facility] [id number] [place], SODIUM, RANDOM URINEon 09-04 Sodium (U) [Moles/Vol] 20 mmol/L Normal [facility] Comment on above: Performed By: #### K RU, NA RU ####[facility] [id number] [place], URINALYSIS WITH REFLEX CULTU RE PERFORMABLEon [...] Performed By: #### u rinalysiswcul ####S PATHOLOGY [id number] [place], U APPEAR Clear Normal Clear The [...] Performed By: #### u rinalysiswcul ####[facility] [id number] [place], U BILI Negative Normal Negative [facility] Comment on above: Order Comment: A [...] around 50%) Performed By: #### u rinalysiswcul ####[facility] [id number] [place], U BLOOD Negative Normal Negative [facility] Comment on above: Order Comment: A [...] Performed By: #### u rinalysiswcul ####S PATHOLOGY [id number] [place], U COLOR Light Yellow Normal Colorless [facility] Comment on above: Order Comment: A [...] Performed By: #### u rinalysiswcul ####S PATHOLOGY [id number] [place], [place] KETONE Negative Normal Negative [facility] Comment on above: Order Comment: A [...] around 50%) Performed By: #### u rinalysiswcul ####[facility] [id number] [place], [place] LEUK Negative Normal Negative [facility] Comment on above: Order Comment: A [...] Performed By: #### u rinalysiswcul ####S PATHOLOGY [id number] [place], [place] NITRITE Negative Normal Negative [facility] Comment on above: Order Comment: A [...] around 50%) Performed By: #### u rinalysiswcul ####[facility] [id number] [place], U PH 5.5 Normal 5.0-8.0 [facility] Comment on above: Order Comment: A [...] around 50%) Performed By: #### u rinalysiswcul ####[facility] [id number] [place], [place] PROTEIN Negative Normal Negative [facility] Comment on above: Order Comment: A [...] around 50%) Performed By: #### u rinalysiswcul ####[facility] [id number] [place], U SG 1.008 Normal <=1.030 [facility] Comment on above: Order Comment: A [...] Performed By: #### u rinalysiswcul ####S PATHOLOGY [id number] [place], [place] UROBILI Negative Normal Negative [facility] Comment on above: Order Comment: A [...] around 50%) Performed By: #### u rinalysiswcul ####[facility] [id number] [place] [address], XR CHEST AP OR PA 1 VIEWon 0 09-04-2024 XR CHEST AP OR PA 1 VIEW Normal [facility] Progress Noteson 09-03-2024 Emission Specialist Authentication Interface Message Text Normal [facility] Emission Specialist Authentication Interface Message Text Normal [facility] Emission Specialist Authentication Interface Message Text Normal [facility] BASIC METABOLIC PANELon Anion gap [Moles/Vol] 19 mmol/L Normal 10-20 [facility] Comment on above: Performed By: #### C H8, HEPATIC, MG ####[facility] [id number] [place] [address], Calcium [Mass/Vol] 8.8 mg/dL Normal 8.6-10.3 [facility] Comment on above: Performed By: #### C H8, HEPATIC, MG ####[facility] [id number] [place], Chloride [Moles/Vol] 100 mmol/L Normal 98-107 [facility] Comment on above: Performed By: #### Kelly Simon, HEPATIC, MG ####S PATHOLOGY [id number] [place], CO2 [Moles/Vol] 22 mmol/L Normal 21-31 [facility] Comment on above: Performed By: #### Kelly Simon, HEPATIC, MG ####[facility] PATH[facility] [id number] [place], Creatinine [Mass/Vol] 2.25 mg/dL High 0.70-1.30 [facility] Comment on above: Performed By: #### Kelly Simon, HEPATIC, MG ####S PATHOLOGY [id number] [place], ESTIMATED GFR (CKD-EPI) 36 mL/min/1.73sqm Low >=60 [facility] Comment on above: Result Comment: 2020 [...] Inclusion of Race in Diagnosing Kidney Disease. [place] Journal of Kidney Diseases 2021;79(2):268-88.e1.2. N Engl J Med 2020 Vol. 385 Issue 19 Pages 3885-1104 Performed By: #### Kelly H8, HEPATIC, MG ####S PATHOLOGY [id number] [place], Glucose [Mass/Vol] 100 mg/dL Normal 74-109 [facility] Comment on above: Performed By: #### Kelly Crystal8, HEPATIC, MG ####S PATHOLOGY [id number] [place], Potassium [Moles/Vol] 4.5 mmol/L Normal 3.5-5.0 [facility] Comment on above: Performed By: #### C H8, HEPATIC, MG ####S PATHOLOGY [id number] [place], Sodium [Moles/Vol] 136 mmol/L Normal 136-145 [facility] Comment on above: Performed By: #### Kelly Crystal8, HEPATIC, MG ####S PATHOLOGY [id number] [place], Urea nitrogen [Mass/Vol] 43 mg/dL High 7-25 [facility] Comment on above: Performed By: #### Kelly Simon, HEPATIC, MG ####[facility] PATH[facility] [id number] [place], CBC WITH DIFFERENTIALon 03-0 -2024 Basophils (Bld) [#/Vol] 0.05 10*3/uL Normal 0.00-0.20 [facility] Comment on above: Performed By: #### C BCDSAT ####[facility] PATH[facility] [id number] [place], Basophils/100 WBC (Bld) 0.6 % Normal <=1.9 [facility] Comment on above: Performed By: #### C BCDSAT ####[facility] PATHOLOG[facility] [id number] [place], Eosinophils (Bld) [#/Vol] 0.04 10*3/uL Normal 0.00-0.70 [facility] Comment on above: Performed By: #### Kelly BCDSAT ####S PATHOLOGY [id number] [place], Eosinophils/100 WBC (Bld) 0.6 % Normal 0.1-4.0 [facility] Comment on above: Performed By: #### Kelly BCDSAT ####[facility] PATH[facility] [id number] [place], Erythrocyte distribution width (RBC) [Ratio] 13.5 % Normal 11.5-14.5 [facility] Comment on above: Performed By: #### C BCDSAT ####S PATHOLOGY [id number] [place], Hematocrit (Bld) [Volume fraction] 43.7 % Normal 41.0-53.0 [facility] Comment on above: Performed By: #### C MARYAT ####[facility] PATHOLOGY [id number] [place] [address], Hemoglobin (Bld) [Mass/Vol] 14.7 g/dL Normal 13.9-16.3 [facility] Comment on above: Performed By: #### C MARYAT ####[facility] PATHOLOGY [id number] [place] [address], Lymphocytes (Bld) [#/Vol] 2.52 10*3/uL Normal 1.00-4.80 [facility] Comment on above: Performed By: #### Kelly HERNANDEZAT ####[facility] PATHOLOG[facility] [id number] [place] [address], Lymphocytes/100 WBC (Bld) 32.6 % Normal 24.0-44.0 [facility] Comment on above: Performed By: #### Kelly HERNANDEZAT ####[facility] PATHOLOG[facility] [id number] [place] [address], MCH (RBC) [Entitic mass] 34.4 pg High 26.0-34.0 [facility] Comment on above: Performed By: #### Kelly HERNANDEZAT ####[facility] PATHOLOG[facility] [id number] [place] [address], MCHC (RBC) [Mass/Vol] 33.8 g/dL Normal 32.0-35.9 [facility] Comment on above: Performed By: #### Kelly HERNANDEZAT ####[facility] PATHOLOG[facility] [id number] [place] [address], MCV (RBC) [Entitic vol] 102 fL High 80-100 [facility] Comment on above: Performed By: #### Kelly HERNANDEZAT ####[facility] PATHOLOG[facility] [id number] [place] [address], Monocytes (Bld) [#/Vol] 0.77 10*3/uL Normal 0.20-1.00 [facility] Comment on above: Performed By: #### Kelly HERNANDEZAT ####[facility] PATH[facility] [id number] [place], Monocytes/100 WBC (Bld) 9.9 % Normal 2.0-11.0 [facility] Comment on above: Performed By: #### Kelly HERNANDEZAT ####[facility] PATH[facility] [id number] [place], Neutrophils (Bld) [#/Vol] 4.35 10*3/uL Normal 1.50-8.00 [facility] Comment on above: Performed By: #### Kelly HERNANDEZAT ####[facility] PATH[facility] [id number] [place], Neutrophils/100 WBC (Bld) 56.3 % Normal 31.0-76.0 [facility] Comment on above: Performed By: #### Kelly HERNANDEZAT ####[facility] PATH[facility] [id number] [place], Platelet mean volume (Bld) [Entitic vol] 8.6 fL Normal 7.5-11.2 [facility] Comment on above: Performed By: #### Kelly HERNANDEZAT ####[facility] PATH[facility] [id number] [place], Platelets (Bld) [#/Vol] 222 10*3/uL Normal 150-400 [facility] Comment on above: Performed By: #### Kelly HERNANDEZAT ####[facility] PATH[facility] [id number] [place], RBC (Bld) [#/Vol] 4.29 10*6/uL Low 4.50-5.90 [facility] Comment on above: Performed By: #### C MARYAT ####[facility] PATH[facility] [id number] [place], WBC (Bld) [#/Vol] 7.7 10*3/uL Normal 4.5-11.5 [facility] Comment on above: Performed By: #### C MARYAT ####[facility] PATH[facility] [id number] [place], Consultson 09-02-2024 Emission Specialist Authentication Interface Message Text Normal [facility] Emission Specialist Authentication Interface Message Text Normal [facility] Emission Specialist Authentication Interface Message Text Normal [facility] HEPATIC FUNCTION PANELon Albumin [Mass/Vol] 3.6 g/dL Normal 3.5-5.7 [facility] Comment on above: Performed By: #### Kelly Simon, HEPATIC, MG ####[facility] [id number] [place], ALK 160 IU/L High 34-104 [facility] Comment on above: Performed By: #### Kelly Simon, HEPATIC, MG ####[facility] [id number] [place], ALT [Catalytic activity/Vol] 44 U/L Normal 7-52 [facility] Comment on above: Performed By: #### Kelly Simon, HEPATIC, MG ####[facility] [id number] [place], AST [Catalytic activity/Vol] 26 U/L Normal 13-39 [facility] Comment on above: Performed By: #### Kelly Simon, HEPATIC, MG ####S PATHOLOGY [id number] [place], Bilirubin [Mass/Vol] 3.4 mg/dL High 0.3-1.0 [facility] Comment on above: Performed By: #### Kelly Simon, HEPATIC, MG ####[facility] [id number] [place], Bilirubin.direct [Mass/Vol] 1.18 mg/dL High 0.03-0.18 [facility] Comment on above: Performed By: #### Kelly Simon, HEPATIC, MG ####[facility] [id number] [place], Protein [Mass/Vol] 6.3 g/dL Normal 6.0-8.3 [facility] Comment on above: Performed By: #### Kelly HGissel, HEPATIC, MG ####[facility] [id number] [place], MAGNESIUMon 09-02-2024 Magnesium [Mass/Vol] 2.1 mg/dL Normal 1.9-2.7 [facility] Comment on above: Performed By: #### C H8, HEPATIC, MG ####[facility] [id number] [place], PROTHROMBIN TIME AND INRon 0 09-02-2024 INR Coag (PPP) [Relative time] 1.54 {INR} High 0.90-1.10 [facility] Comment on above: Performed By: #### P T ####[facility] [id number] [place], PT Coag (PPP) [Time] 17.2 s High 9.7-12.9 [facility] Comment on above: Performed By: #### P T ####[facility] [id number] [place] [address], Progress Noteson 09-02-2024 Emission Specialist Authentication Interface Message Text Normal [facility] Emission Specialist Authentication Interface Message Text Normal [facility] Emission Specialist Authentication Interface Message Text Normal [facility] US ASCITES SURVEY 4 QUADRANT Son 09-02-2024 US ASCITES SURVEY 4 QUADRANTS Normal [facility] BASIC METABOLIC PANELon 03-0 Anion gap [Moles/Vol] 19 mmol/L Normal 10-20 [facility] Comment on above: Performed By: #### C H8, MG ####[facility] [id number] [place], Calcium [Mass/Vol] 8.2 mg/dL Low 8.6-10.3 [facility] Comment on above: Performed By: #### C H8, MG ####[facility] [id number] [place], Chloride [Moles/Vol] 103 mmol/L Normal 98-107 [facility] Comment on above: Performed By: #### Kelly H8, MG ####[facility] [id number] [place], CO2 [Moles/Vol] 19 mmol/L Low 21-31 [facility] Comment on above: Performed By: #### Kelly H8, MG ####[facility] [id number] [place], Creatinine [Mass/Vol] 2.04 mg/dL High 0.70-1.30 [facility] Comment on above: Performed By: #### Kelly Crystal8, MG ####[facility] [id number] [place], ESTIMATED GFR (CKD-EPI) 40 mL/min/1.73sqm Low [...] Inclusion of Race in Diagnosing Kidney Disease. [place] Journal of Kidney Diseases 2021;79(2):268-88.e1.2. N Engl J Med 1 Vol. 385 Issue 19 Pages 3898-5757 Performed By: #### Kelly H8, MG ####[facility] [id number] [place], Glucose [Mass/Vol] 134 mg/dL High 74-109 [facility] Comment on above: Performed By: #### Kelly H8, MG ####[facility] [id number] [place], Potassium [Moles/Vol] 4.6 mmol/L Normal 3.5-5.0 [facility] Comment on above: Result Comment: Hemo lysis present Performed By: #### Kelly H8, MG ####[facility] [id number] [place], Sodium [Moles/Vol] 136 mmol/L Normal 136-145 [facility] Comment on above: Performed By: #### Kelly H8, MG ####[facility] [id number] [place], Urea nitrogen [Mass/Vol] 34 mg/dL High 7-25 [facility] Comment on above: Performed By: #### C H8, MG ####[facility] PATH[facility] [id number] [place], CBC WITH DIFFERENTIALon 03-0 -2024 Basophils (Bld) [#/Vol] 0.03 10*3/uL Normal 0.00-0.20 [facility] Comment on above: Performed By: #### C BCDSAT ####[facility] PATH[facility] [id number] [place], Basophils/100 WBC (Bld) 0.5 % Normal <=1.9 [facility] Comment on above: Performed By: #### C BCDSAT ####[facility] [id number] [place], Eosinophils (Bld) [#/Vol] 0.03 10*3/uL Normal 0.00-0.70 [facility] Comment on above: Performed By: #### C BCDSAT ####[facility] PATH[facility] [id number] [place] [address], Eosinophils/100 WBC (Bld) 0.5 % Normal 0.1-4.0 [facility] Comment on above: Performed By: #### C BCDSAT ####[facility] [id number] [place], Erythrocyte distribution width (RBC) [Ratio] 14.0 % Normal 11.5-14.5 [facility] Comment on above: Performed By: #### C BCDSAT ####[facility] [id number] [place], Hematocrit (Bld) [Volume fraction] 46.1 % Normal 41.0-53.0 [facility] Comment on above: Performed By: #### C BCDSAT ####[facility] PATH[facility] [id number] [place], Hemoglobin (Bld) [Mass/Vol] 15.2 g/dL Normal 13.9-16.3 [facility] Comment on above: Performed By: #### C BCDSAT ####[facility] PATH[facility] [id number] [place], Lymphocytes (Bld) [#/Vol] 1.72 10*3/uL Normal 1.00-4.80 [facility] Comment on above: Performed By: #### C MARYAT ####[facility] PATHOLOGY [id number] [place] [address], Lymphocytes/100 WBC (Bld) 28.0 % Normal 24.0-44.0 [facility] Comment on above: Performed By: #### C MARYAT ####[facility] PATH[facility] [id number] [place] [address], MCH (RBC) [Entitic mass] 34.1 pg High 26.0-34.0 [facility] Comment on above: Performed By: #### C MARYAT ####[facility] PATHOLOG[facility] [id number] [place] [address], MCHC (RBC) [Mass/Vol] 33.0 g/dL Normal 32.0-35.9 [facility] Comment on above: Performed By: #### C MARYAT ####[facility] PATHOLOG[facility] [id number] [place] [address], MCV (RBC) [Entitic vol] 103 fL High 80-100 [facility] Comment on above: Performed By: #### Kelly HERNANDEZAT ####[facility] PATH[facility] [id number] [place] [address], Monocytes (Bld) [#/Vol] 0.56 10*3/uL Normal 0.20-1.00 [facility] Comment on above: Performed By: #### C MARYAT ####[facility] PATH[facility] [id number] [place] [address], Monocytes/100 WBC (Bld) 9.1 % Normal 2.0-11.0 [facility] Comment on above: Performed By: #### C MARYAT ####[facility] PATH[facility] [id number] [place] [address], Neutrophils (Bld) [#/Vol] 3.80 10*3/uL Normal 1.50-8.00 [facility] Comment on above: Performed By: #### Kelly HERNANDEZAT ####[facility] [id number] [place], Neutrophils/100 WBC (Bld) 61.9 % Normal 31.0-76.0 [facility] Comment on above: Performed By: #### C BCDSAT ####[facility] [id number] [place], Platelet mean volume (Bld) [Entitic vol] 8.2 fL Normal 7.5-11.2 [facility] Comment on above: Performed By: #### Kelly TUCKERDSAT ####[facility] [id number] [place], Platelets (Bld) [#/Vol] 198 10*3/uL Normal 150-400 [facility] Comment on above: Performed By: #### Kelly TUCKERDSAT ####[facility] [id number] [place], RBC (Bld) [#/Vol] 4.46 10*6/uL Low 4.50-5.90 [facility] Comment on above: Performed By: #### Kelly TUCKERDSAT ####[facility] [id number] [place], WBC (Bld) [#/Vol] 6.1 10*3/uL Normal 4.5-11.5 [facility] Comment on above: Performed By: #### Kelly BCDSAT ####[facility] [id number] [place], Consultson 09-01-2024 Emission Specialist Authentication Interface Message Text Normal [facility] ED Noteson 09-01-2024 Emission Specialist Authentication Interface Message Text Normal [facility] ED Provider Noteson 09-02-19 Emission Specialist Authentication Interface Message Text Sign out received at 0700. Briefly this is a 44M PMH HF, CKD, HTN presenting for HF, pending admission. VS reviewed, stable. Labs reviewed, notable for CKD, elevated hepatic enzymes, elevated BNP. Pending admission. Signed out to inpatient team. Normal [facility] FEUREA, BLOODon 09-01-2024 Creatinine [Mass/Vol] 2.10 mg/dL High 0.70-1.30 [facility] Comment on above: Performed By: #### F EURRONB ####S PATHOLOGY [id number] [place], Urea nitrogen [Mass/Vol] 36 mg/dL High 7-25 [facility] Comment on above: Performed By: #### F EURRONB ####S PATHOLOGY [id number] [place], FRACTIONAL EXCRETION OF UREA on 09-01-2024 Creatinine [Mass/Vol] 2.04 mg/dL High 0.70-1.30 [facility] Comment on above: Order Comment: A res ult of <35% is consistent with prerenal cause of SCHUYLER. >50% is consistent with tubular causes. Use of FEUrea may be more accurate than FENa in detecting prerenal disease in patients concurrently taking diuretics. Performed By: #### F EURRONU ####[facility] [id number] [place], CREATININE, URINE 16 mg/dL Normal [facility] Comment on above: Order Comment: A res ult of <35% is consistent with prerenal cause of SCHUYLER. >50% is consistent with tubular causes. Use of FEUrea may be more accurate than FENa in detecting prerenal disease in patients concurrently taking diuretics. Performed By: #### F EURRONU ####S PATHOLOGY [id number] [place], FRACTIONAL EXCRETION OF UREA 27 % Normal [facility] Comment on above: Order Comment: A res ult of <35% is consistent with prerenal cause of SCHUYLER. >50% is consistent with tubular causes. Use of FEUrea may be more accurate than FENa in detecting prerenal disease in patients concurrently taking diuretics. Performed By: #### F EUREAU ####S PATHOLOGY [id number] [place], UREA NITROGEN, URINE 73 mg/dL Normal [facility] Comment on above: Order Comment: A res ult of <35% is consistent with prerenal cause of SCHUYLER. >50% is consistent with tubular causes. Use of FEUrea may be more accurate than FENa in detecting prerenal disease in patients concurrently taking diuretics. Performed By: #### F EUREAU ####[facility] [id number] [place], UREA(BLOOD) 34 mg/dL High 8-22 [facility] Comment on above: Order Comment: A res ult of <35% is consistent with prerenal cause of SCHUYLER. >50% is consistent with tubular causes. Use of FEUrea may be more accurate than FENa in detecting prerenal disease in patients concurrently taking diuretics. Performed By: #### F CASS ####[facility] [id number] [place], H AND Timo 09-01-2024 Emission Specialist Authentication Interface Message Text Normal [facility] Emission Specialist Authentication Interface Message Text Normal [facility] HIGH SENSITIVITY CARDIAC TRO PONIN I (HS-CTNI) SERIAL TESTING 0HR (BASELINE)on 09-01-2024 HS-CTNI 0 HR (BASELINE) 16 ng/L High <=15 [facility] Comment on above: Order Comment: [place] monalisa troponin can result from acute myocardial [...] Performed By: #### H STRP SERIAL ####[facility] [id number] [facility] [id number] MAGNESIUMon 09-01-2024 Magnesium [Mass/Vol] 2.0 mg/dL Normal 1.9-2.7 [facility] Comment on above: Result Comment: Hemo lysis present Performed By: #### C H8, MG ####[facility] [id number] [place], [id number] Progress Noteson 09-01-2024 Emission Specialist Authentication Interface Message Text Pt refused the labs stating am done for the day . notified Normal [facility] Wesabe AuthenticKeek Interface Message Text Normal [facility] US LIVER/GALL BLADDER/PANCRE ASon 09-01-2024 US LIVER/GALL BLADDER/PANCREAS Normal [facility] B TYPE NATRIURETIC PEPTIDEon 08-31-2024 Natriuretic peptide B (Bld) [Mass/Vol] 3904.0 pg/mL High <100.0 [facility] Comment on above: Performed By: #### B PL ####[facility] [id number] [place], [id number] BASIC METABOLIC PANELon Anion gap [Moles/Vol] 14 mmol/L Normal 10-20 [facility] Comment on above: Performed By: #### C H8, HEPATIC, LIP ####[facility] [id number] [place], [id number] Calcium [Mass/Vol] 9.5 mg/dL Normal 8.6-10.3 [facility] Comment on above: Performed By: #### C H8, HEPATIC, LIP ####[facility] [id number] [facility] , [id number] Chloride [Moles/Vol] 100 mmol/L Normal 98-107 [facility] Comment on above: Performed By: #### C H8, HEPATIC, LIP ####[facility] [facility] [id number] [facility] , [id number] CO2 [Moles/Vol] 29 mmol/L Normal 21-31 [facility] Comment on above: Performed By: #### C H8, HEPATIC, LIP ####[facility] [id number] [facility] , [id number] Creatinine [Mass/Vol] 1.93 mg/dL High 0.70-1.30 [facility] Comment on above: Performed By: #### C H8, HEPATIC, LIP ####[facility] [id number] [facility] , [id number] ESTIMATED GFR (CKD-EPI) 43 mL/min/1.73sqm Low >=60 [...] Inclusion of Race in Diagnosing Kidney Disease. [place] Journal of Kidney Diseases 2021;79(2):268-88.e1.2. N Engl J Med 1 Vol. 385 Issue 19 Pages 7260-3517 Performed By: #### C H8, HEPATIC, LIP ####[facility] [id number] [facility] , [id number] Glucose [Mass/Vol] 115 mg/dL High 74-109 [facility] Comment on above: Performed By: #### C H8, HEPATIC, LIP ####[facility] [id number] [facility] , [id number] Potassium [Moles/Vol] 3.6 mmol/L Normal 3.5-5.0 [facility] Comment on above: Performed By: #### Kelly H8, HEPATIC, LIP ####[facility] [id number] [place] , [id number] Sodium [Moles/Vol] 139 mmol/L Normal 136-145 [facility] Comment on above: Performed By: #### Kelly H8, HEPATIC, LIP ####[facility] [id number] [place] , [id number] Urea nitrogen [Mass/Vol] 34 mg/dL High 7-25 [facility] Comment on above: Performed By: #### Kelly Simon, HEPATIC, LIP ####[facility] [id number] [place] , [id number] CBC WITH DIFFERENTIALon Basophils (Bld) [#/Vol] 0.00 10*3/uL Normal 0.00-0.20 [facility] Comment on above: Performed By: #### Kelly BCDSAT ####[facility] [id number] [place] , [id number] Basophils/100 WBC (Bld) 0.5 % Normal <=1.9 [facility] Comment on above: Performed By: #### C BCDSAT ####[facility] [facility] [id number] [place] , [id number] Eosinophils (Bld) [#/Vol] 0.00 10*3/uL Normal 0.00-0.70 [facility] Comment on above: Performed By: #### C BCDSAT ####[facility] [id number] [place] , [id number] Eosinophils/100 WBC (Bld) 0.3 % Normal 0.1-4.0 [facility] Comment on above: Performed By: #### C BCDSAT ####[facility] [facility] [id number] [place] , [id number] Erythrocyte distribution width (RBC) [Ratio] 13.9 % Normal 11.5-14.5 [facility] Comment on above: Performed By: #### C BCDSAT ####[facility] [facility] [id number] [place] [id number] Hematocrit (Bld) [Volume fraction] 45.9 % Normal 41.0-53.0 [facility] Comment on above: Performed By: #### C BCDSAT ####[facility] [facility] [id number] [place] [id number] Hemoglobin (Bld) [Mass/Vol] 14.9 g/dL Normal 13.9-16.3 [facility] Comment on above: Performed By: #### C BCDSAT ####[facility] [id number] [place], [id number] Lymphocytes (Bld) [#/Vol] 2.20 10*3/uL Normal 1.00-4.80 [facility] Comment on above: Performed By: #### C BCDSAT ####[facility]OLOG[facility] [id number] [place], [id number] Lymphocytes/100 WBC (Bld) 25.7 % Normal 24.0-44.0 [facility] Comment on above: Performed By: #### C BCDSAT ####[facility] [facility] [id number] [place], [id number] MCH (RBC) [Entitic mass] 33.9 pg Normal 26.0-34.0 [facility] Comment on above: Performed By: #### C BCDSAT ####[facility] [id number] [address] [place], [id number] MCHC (RBC) [Mass/Vol] 32.6 g/dL Normal 32.0-35.9 [facility] Comment on above: Performed By: #### C BCDSAT ####[facility] [id number] [address] [place], [id number] MCV (RBC) [Entitic vol] 104 fL High 80-100 [facility] Comment on above: Performed By: #### C BCDSAT ####[facility] [id number] Jordon [place], [id number] Monocytes (Bld) [#/Vol] 0.50 10*3/uL Normal 0.20-1.00 [facility] Comment on above: Performed By: #### C BCDSAT ####[facility] [id number] [address] , [id number] Monocytes/100 WBC (Bld) 5.6 % Normal 2.0-11.0 [facility] Comment on above: Performed By: #### C BCDSAT ####[facility] [id number] [address] , [id number] Neutrophils (Bld) [#/Vol] 5.70 10*3/uL Normal 1.50-8.00 [facility] Comment on above: Performed By: #### C BCDSAT ####[facility] [id number] [place] , [id number] Neutrophils/100 WBC (Bld) 67.9 % Normal 31.0-76.0 [facility] Comment on above: Performed By: #### C BCDSAT ####[facility] [id number] [place] , [id number] Nucleated RBC (Bld) [#/Vol] 10*3/uL Normal [facility] Comment on above: Performed By: #### C BCDSAT ####[facility] [id number] [place] , [id number] Nucleated RBC (Bld) [#/Vol] 0.01 10*3/uL Normal [facility] Comment on above: Performed By: #### C BCDSAT ####[facility] [id number] [place] , [id number] Platelet mean volume (Bld) [Entitic vol] 8.4 fL Normal 7.5-11.2 [facility] Comment on above: Performed By: #### C BCDSAT ####[facility] [id number] [place] , [id number] Platelets (Bld) [#/Vol] 238 10*3/uL Normal 150-400 [facility] Comment on above: Performed By: #### C BCDSAT ####[facility] [id number] [place], [id number] RBC (Bld) [#/Vol] 4.40 10*6/uL Low 4.50-5.90 [facility] Comment on above: Performed By: #### C BCDSAT ####[facility] [id number] [address] [place], [id number] WBC (Bld) [#/Vol] 8.4 10*3/uL Normal 4.5-11.5 [facility] Comment on above: Performed By: #### Kelly BCDSAT ####[facility] [id number] [address] [place], [id number] ED Noteson 08-31-2024 Emission Specialist Authentication Interface Message Text Report given to CRISTINE Valdez Normal [facility] ED Provider Noteson 09-01-19 Emission Specialist Authentication Interface Message Text Normal [facility] HEPATIC FUNCTION PANELon Albumin [Mass/Vol] 4.2 g/dL Normal 3.5-5.7 [facility] Comment on above: Performed By: #### Kelly Simon, HEPATIC, LIP ####[facility] [id number] [id number] ALK 170 IU/L High 34-104 [facility] Comment on above: Performed By: #### Kelly HGissel, HEPATIC, LIP ####[facility] [id number] [place], [id number] ALT [Catalytic activity/Vol] 53 U/L High 7-52 [facility] Comment on above: Performed By: #### Kelly HGissel, HEPATIC, LIP ####[facility] [id number] [address] [place], [id number] AST [Catalytic activity/Vol] 20 U/L Normal 13-39 [facility] Comment on above: Performed By: #### Kelly HGissel, HEPATIC, LIP ####[facility] [id number] [place] [place], [id number] Bilirubin [Mass/Vol] 3.4 mg/dL High 0.3-1.0 [facility] Comment on above: Performed By: #### C H8, HEPATIC, LIP ####[facility] [id number] [address] , [id number] Bilirubin.direct [Mass/Vol] 1.30 mg/dL High 0.03-0.18 [facility] Comment on above: Performed By: #### C H8, HEPATIC, LIP ####[facility] [id number] [address] , [id number] Protein [Mass/Vol] 6.8 g/dL Normal 6.0-8.3 [facility] Comment on above: Performed By: #### C H8, HEPATIC, LIP ####[facility] [id number] [address] , [id number] LIPASEon 08-31-2024 LIP 9 IU/L Low 11-82 [facility] Comment on above: Performed By: #### C H8, HEPATIC, LIP ####[facility] [id number] [place] , [id number] Patient Instructionson 08-31 Emission Specialist Authentication Interface Message Text Normal [facility] Progress Notes - NoteWritero n 08-31-2024 Emission Specialist Authentication Interface Message Text Normal [facility] XR CHEST PA+LAT 2 VIEWSon XR CHEST PA+LAT 2 VIEWS Normal [facility] Telephone Encounteron 2024 Emission Specialist Authentication Interface Message Text Normal [facility] AUTOIMMUNE MULTIPLEX PANELon 08-27-2024 XOCHITL SCREEN Negative Normal Negative [facility] Comment on above: Order Comment: ds DN A Reference Range:< or = to 4 IU/tA-Dwbpfbko6-1 IU/mL-Indeterminate> or = to 10 IU/mL-Positiveds DNA Reference Range:< or = to 4 IU/yU-Seijhrxf7-7 IU/mL-Indeterminate> or = to 10 IU/mL-PositiveA negative screen reflects the following tests as negative-dsDNA Antibody, SS-A Antibody, SS-B Antibody, Centromere Antibody, Hogan Antibody, Hogan/LAY OUT INSPECTOR Antibody, LAY OUT INSPECTOR Antibody, Scleroderma-70 Antibody, JUAN JOSE-1 Antibody, Ribosomal P Antibody, Chromatin Antibody. Performed By: #### P HOS, FT3, T4 F, VITD25, xochitl ####[facility] [id number] [place], [place], BASIC METABOLIC PANELon -2 Anion gap [Moles/Vol] 18 mmol/L Normal 10-20 [facility] Comment on above: Performed By: #### M G, TSH HS, CALEB, SYPTOTALTPPA, 60958-4, VITB12, CH8 ####[facility] [id number] [place], [place], Calcium [Mass/Vol] 9.6 mg/dL Normal 8.6-10.3 [facility] Comment on above: Performed By: #### M G, TSH HS, CALEB, SYPTOTALTPPA, 06056-6, VITB12, CH8 ####[facility] [id number] [place] [address], Chloride [Moles/Vol] 99 mmol/L Normal 98-107 [facility] Comment on above: Performed By: #### M G, TSH HS, CALEB, SYPTOTALTPPA, 48247-2, VITB12, CH8 ####[facility] [id number] [place] [address], CO2 [Moles/Vol] 30 mmol/L Normal 21-31 [facility] Comment on above: Performed By: #### M G, TSH HS, CALEB, SYPTOTALTPPA, 04985-9, VITB12, CH8 ####[facility] [id number] [place], Creatinine [Mass/Vol] 2.04 mg/dL High 0.70-1.30 [facility] Comment on above: Performed By: #### M G, TSH HS, CALEB, SYPTOTALTPPA, 23904-4, VITB12, CH8 ####[facility] [id number] [place], ESTIMATED GFR (CKD-EPI) 40 mL/min/1.73sqm Low >=60 [facility] Comment on above: Result Comment: 2020 [...] Inclusion of Race in Diagnosing Kidney Disease. [place] Journal of Kidney Diseases 2021;79(2):268-88.e1.2. N Engl J Med 2020 Vol. 385 Issue 19 Pages 3280-9013 Performed By: #### M G, TSH HS, CALEB, SYPTOTALTPPA, 91440-9, VITB12, CH8 ####[facility] [id number] [place], Glucose [Mass/Vol] 110 mg/dL High 74-109 [facility] Comment on above: Performed By: #### M G, TSH HS, CALEB, SYPTOTALTPPA, 32269-8, VITB12, CH8 ####[facility] [id number] [place], Potassium [Moles/Vol] 4.2 mmol/L Normal 3.5-5.0 [facility] Comment on above: Performed By: #### M G, TSH HS, CALEB, SYPTOTALTPPA, 70227-7, VITB12, CH8 ####[facility] [id number] [place], Sodium [Moles/Vol] 143 mmol/L Normal 136-145 [facility] Comment on above: Performed By: #### M G, TSH HS, CALEB, SYPTOTALTPPA, 07318-0, VITB12, CH8 ####[facility] [id number] [place], Urea nitrogen [Mass/Vol] 51 mg/dL High 7-25 [facility] Comment on above: Performed By: #### M G, TSH HS, CALEB, SYPTOTALTPPA, 88374-1, VITB12, CH8 ####[facility] [id number] [place], COMPLETE BLOOD COUNTon 08-27 Erythrocyte distribution width (RBC) [Ratio] 13.2 % Normal 11.5-14.5 [facility] Comment on above: Performed By: #### C BC ####[facility] [id number] [place], Hematocrit (Bld) [Volume fraction] 41.2 % Normal 41.0-53.0 [facility] Comment on above: Performed By: #### C BC ####[facility] [id number] [place], Hemoglobin (Bld) [Mass/Vol] 13.4 g/dL Low 13.9-16.3 [facility] Comment on above: Performed By: #### C BC ####[facility] [id number] [place], MCH (RBC) [Entitic mass] 33.5 pg Normal 26.0-34.0 [facility] Comment on above: Performed By: #### C BC ####[facility] [id number] [place], MCHC (RBC) [Mass/Vol] 32.5 g/dL Normal 32.0-35.9 [facility] Comment on above: Performed By: #### C BC ####[facility] [id number] [place], MCV (RBC) [Entitic vol] 103 fL High 80-100 [facility] Comment on above: Performed By: #### C BC ####[facility] [id number] [place], Platelet mean volume (Bld) [Entitic vol] 8.0 fL Normal 7.5-11.2 [facility] Comment on above: Performed By: #### C BC ####[facility] [id number] [place], Platelets (Bld) [#/Vol] 238 10*3/uL Normal 150-400 [facility] Comment on above: Performed By: #### C BC ####[facility] [id number] [place], RBC (Bld) [#/Vol] 4.00 10*6/uL Low 4.50-5.90 [facility] Comment on above: Performed By: #### C BC ####[facility] AJOCLUIRAL[address] [place] [address], WBC (Bld) [#/Vol] 6.6 10*3/uL Normal 4.5-11.5 [facility] Comment on above: Performed By: #### C BC ####[facility] [id number] [place] [address], FERRITINon 08-27-2024 CALEB 119.2 ng/mL Normal 23.9-336.2 [facility] Comment on above: Performed By: #### M G, TSH HS, CALEB, SYPTOTALTPPA, 29982-7, VITB12, CH8 ####[facility] [id number] [place], FULL LIPID PROFILEon 025 Cholesterol [Mass/Vol] 204 mg/dL High <200 [facility] Comment on above: Result Comment: Michaela rable: < 200 mg/dLBorderline High: 200-239 mg/dLHigh: > = 240 mg/dL Performed By: #### H EPATIC, FETIBC, HDL ####[facility] [id number] [place], Cholesterol in LDL [Mass/Vol] 162 mg/dL High <100 [facility] Comment on above: Performed By: #### H EPATIC, FETIBC, HDL ####[facility] [id number] [place], Cholesterol.total/Chol esterol in HDL [Mass ratio] 7.29 {ratio} High <5.00 [facility] Comment on above: Performed By: #### H EPATIC, FETIBC, HDL ####[facility] [id number] [place], HDL CHOL 28 mg/dL Low >40 [facility] Comment on above: Performed By: #### H EPATIC, FETIBC, HDL ####S [facility] [id number] [place], LDL/HDL 5.79 High <3.57 [facility] Comment on above: Performed By: #### H EPATIC, FETIBC, HDL ####S [facility] [id number] [place], NON-HDL CHOLESTEROL 176 mg/dL High <130 [facility] Comment on above: Performed By: #### H EPATIC, FETIBC, HDL ####[facility] ZOASUEFQYB344[address] [place] [address], Triglyceride [Mass/Vol] 106 mg/dL Normal <150 [facility] Comment on above: Result Comment: Norm al: < 150 mg/dLBorderline High: 150-199 mg/dLHigh: 200-499 mg/dLVery High: > = 500 mg/dL Performed By: #### H EPATIC, FETIBC, HDL ####[facility] PDPDNWECFG[address] [place] [address], GC/CHLAMYDIA/TRICHOMONAS AMP LIFICATIONon 08-27-2024 GC/CHLAMYDIA/TRICHOMON AMPLIFICATION CHLAMYDIA AMPLIFICATION: Negative GC AMPLIFICATION: Negative TRICHOMONAS AMPLIFICATION: Negative Normal Negative [facility] Comment on above: Order Comment: This test is performed using an automated nucleic acid amplification assay ([employer] Performed By: #### G CT ####[facility] Uslmpackb[address] [place], [place] [address] HEPATIC FUNCTION PANELon Albumin [Mass/Vol] 4.1 g/dL Normal 3.5-5.7 [facility] Comment on above: Performed By: #### H EPATIC, FETIBC, HDL ####[facility] NGYXVEGJJW1466 [place], ALK 174 IU/L High 34-104 [facility] Comment on above: Performed By: #### H EPATIC, FETIBC, HDL ####S [facility] [id number] [place], ALT [Catalytic activity/Vol] 105 U/L High 7-52 [facility] Comment on above: Performed By: #### H CARMENCITA DOSHIIBC, HDL ####[facility] TFYLPZJKJG35[address] [place] [address], AST [Catalytic activity/Vol] 51 U/L High 13-39 [facility] Comment on above: Performed By: #### H TICO FETIBC, HDL ####[facility] [id number] [place] [address], Bilirubin [Mass/Vol] 3.8 mg/dL High 0.3-1.0 [facility] Comment on above: Performed By: #### H TICO FETIBC, HDL ####[facility] [id number] [place] [address], Bilirubin.direct [Mass/Vol] 1.44 mg/dL High 0.03-0.18 [facility] Comment on above: Performed By: #### Bonilla DOSHI FETIBC, HDL ####[facility] [id number] [place] [address], Protein [Mass/Vol] 7.1 g/dL Normal 6.0-8.3 [facility] Comment on above: Performed By: #### Bonilla DOSHI FETIBC, HDL ####[facility] [id number] [place] [address], HEPATITIS A IGM ANTIBODYon 0 08-27-2024 HEP A IGM Non-Reactive Normal Nonreactive [facility] Comment on above: Performed By: #### C ORE, ANTI-HBS, HCV, HEP A TOT, HEP A IGM, HBSAG, CORE M ####[facility] [id number] [place] [address], HEPATITIS A TOTAL ANTIBODYon 08-27-2024 HEP A TOT Non-Reactive Normal Nonreactive [facility] Comment on above: Performed By: #### C ORE, ANTI-HBS, HCV, HEP A TOT, HEP A IGM, HBSAG, CORE M ####[facility] [id number] [place] [address], HEPATITIS B CORE ANTIBODYon 08-27-2024 CORE Non-Reactive Normal Nonreactive [facility] Comment on above: Performed By: #### C ORE, ANTI-HBS, HCV, HEP A TOT, HEP A IGM, HBSAG, CORE M ####[facility] [id number] [place], HEPATITIS B CORE ANTIBODY IG 08-27-2024 CORE M Non-Reactive Normal Nonreactive [facility] Comment on above: Performed By: #### C ORE, ANTI-HBS, HCV, HEP A TOT, HEP A IGM, HBSAG, CORE M ####[facility] [id number] [place] [address], HEPATITIS B SURFACE ANTIBODY on 08-27-2024 ANTI-HBS < 3.1 Normal [facility] Comment on above: Order Comment: Nonre active: Samples < 7.5 mIU/mLReactive: Samples >/= 10.0 mIU/mLThe accepted criteria for immunity to HBV is anti-HBs activity >/= 10 mIU/mL, as defined by the WHO International Reference Preparation. Performed By: #### C ORE, ANTI-HBS, HCV, HEP A TOT, HEP A IGM, HBSAG, CORE M ####[facility] [id number] [place] [address], HEPATITIS B SURFACE ANTIGENo n 08-27-2024 HBSAG Non-Reactive Normal Non-Reactive [facility] Comment on above: Performed By: #### C ORE, ANTI-HBS, HCV, HEP A TOT, HEP A IGM, HBSAG, CORE M ####[facility] [id number] [place] [address], HEPATITIS C ANTIBODYon 08-27 HCV Non-Reactive Normal Nonreactive [facility] Comment on above: Performed By: #### C ORE, ANTI-HBS, HCV, HEP A TOT, HEP A IGM, HBSAG, CORE M ####[facility] GZESOWJVTX44[address] [place] [address], HIV 1 and 2 Ab and HIV 1 p24 Ag panel IAon 08-27-2024 HIV AG-AB SCREEN Non-Reactive Normal Non-Reactive [facility] Comment on above: Order Comment: HIV I nformation: ???[place] Rev. code 3701.243(E):This information has been disclosed [...] #### M G, TSH HS, CALEB, SYPTOTALTPPA, 06503-8, VITB12, CH8 ####[facility] [id number] [place], IRON AND TIBCon 08-27-2024 % SAT CORRECT PRD 14 % Low 20-55 [facility] Comment on above: Performed By: #### H EPATIC, FETIBC, HDL ####[facility] [id number] [place], FE CORRECT PRD 61 ug/dL Normal 50-212 [facility] Comment on above: Performed By: #### H EPATIC, FETIBC, HDL ####[facility] [id number] [place], TIBC CORRECT PRD 430 ug/mL High 250-410 [facility] Comment on above: Performed By: #### H EPATIC, FETIBC, HDL ####[facility] [id number] [place], TRANSFER CORRECT PRD 307 mg/dL Normal 203-362 [facility] Comment on above: Performed By: #### H EPATIC, FETIBC, HDL ####[facility] [id number] [place], MAGNESIUMon 08-27-2024 Magnesium [Mass/Vol] 2.4 mg/dL Normal 1.9-2.7 [facility] Comment on above: Performed By: #### M G, TSH HS, CALEB, SYPTOTALTPPA, 24557-6, VITB12, CH8 ####[facility] [id number] [place] [address], MICROALBUMIN, URINEon 2024 CREATININE, URINE 426 mg/dL Normal [facility] Comment on above: Order Comment: Note updated reference ranges. Performed By: #### U R MA ####[facility] [id number] [place] [address], MICRO-ALBUMIN, URINE 212 mg/L Normal [facility] Comment on above: Order Comment: Note updated reference ranges. Performed By: #### U R MA ####[facility] [id number] [place] [address], MICRO-ALBUMIN/CREAT RATIO 50 mg/G High <=30 [facility] Comment on above: Order Comment: Note updated reference ranges. Performed By: #### U R MA ####[facility] OEMGGBTKRZ29[address] [place] [address], NT PRO-BNPon 08-27-2024 Natriuretic peptide B (Bld) [Mass/Vol] 89766 pg/mL High <=450 [facility] Comment on above: Order Comment: Resul t: <300 pg/mL (All ages).Interpretation: Negative. Heart failure unlikely.Result: 300-450 pg/mL (<50 years), 300-900 pg/mL (50-75 years), 300-1800 pg/mL (>75 years).Interpretation: Indeterminate. Consider other reasons for NT Pro-BNP elevation.Result: >450 pg/mL (<50 years), >900 pg/mL (50-75 years), >1800 pg/mL (>75 years).Interpretation: Positive. Heart failure likely. Performed By: #### N T-PROBNP ####[facility] NGYTCUXPCS[address] [place] [address], PHOSPHORUSon 08-27-2024 Phosphate [Mass/Vol] 4.7 mg/dL Normal 2.5-5.0 [facility] Comment on above: Performed By: #### P HOS, FT3, T4 F, VITD25, xochitl ####[facility] [id number] [place], [place], Patient Instructionson 08-27 Emission Specialist Authentication Interface Message Text Normal [facility] Progress Noteson 08-27-2024 Emission Specialist Authentication Interface Message Text Identity was confirmed by verifying patient name and date of . Blood drawn for patient. Blood obtained from right and left hand, using 21 gauge butterfly. Patient denies discomfort, bleeding controlled, bandage applied. Site appears normal. Normal [facility] Emission Specialist Authentication Interface Message Text Identification was verified by patient verbalizing his name and date of . Normal [facility] Emission Specialist Authentication Interface Message Text Normal [facility] SYPHILIS TOTAL/TPPAon 2024 SYPHILIS TOTAL (IGG/IGM) Non-Reactive Normal Non-Reactive [facility] Comment on above: Order Comment: No re sults found for: TPPANo components found for: FTANo serologic evidence of syphilis.If recent exposure/early infection is suspected, repeat testing in 2-4 weeks. Performed By: #### M G, TSH HS, CALEB, SYPTOTALTPPA, 31985-8, VITB12, CH8 ####[facility] [id number] [place], TPPA Normal [facility] Comment on above: Order Comment: No re sults found for: TPPANo components found for: FTANo serologic evidence of syphilis.If recent exposure/early infection is suspected, repeat testing in 2-4 weeks. Performed By: #### M G, TSH HS, CALEB, SYPTOTALTPPA, 50820-9, VITB12, CH8 ####[facility] [id number] [place], THYROXINE (T4), FREEon 08-27 T4 F 1.40 ng/dL High 0.61-1.12 [facility] Comment on above: Performed By: #### P HOS, FT3, T4 F, VITD25, xochitl ####S [facility]OLOG[facility] SAPUGSMEAU7576 [place], TRIIODOTHYRONINE (T3), FREEo n 08-27-2024 FT3 2.8 pg/mL Normal 2.5-3.9 [facility] Comment on above: Performed By: #### P HOS, FT3, T4 F, VITD25, xochitl ####[facility] [id number] [place], TSHon 08-27-2024 TSH 0.566 uIU/mL Normal 0.450-5.330 [facility] Comment on above: Performed By: #### M G, TSH HS, CALEB, SYPTOTALTPPA, 39540-8, VITB12, CH8 ####[facility] [id number] [place], [place], Telephone Encounteron 2024 Emission Specialist Authentication Interface Message Text Normal [facility] URINALYSIS,AUTO-IN OFFICEon 08-27-2024 BILIRUBIN, URINE POC Positive Abnormal Negative [facility] Comment on above: Order Comment: TEST PERFORMED AT:[place] [address] Performed By: #### 8 1003 ####[facility] Rgvatjckq2859 [place], [place] BLOOD, URINE POC Trace Abnormal Negative [facility] Comment on above: Order Comment: TEST PERFORMED AT:[place] [address] Performed By: #### 8 1003 ####[facility] Qytmnyxxb5855 [place] [id number] CLARITY, POC Clear Normal [facility] Comment on above: Order Comment: TEST PERFORMED AT:[place] [address] Performed By: #### 8 1003 ####[facility] Rievghunz4795 [place], [place] COLOR, POC Chaya Normal [facility] Comment on above: Order Comment: TEST PERFORMED AT:[place] [address] Performed By: #### 8 1003 ####[facility] Bouxzoxau9880 [place], [place] GLUCOSE, URINE POC Negative Normal Negative [facility] Comment on above: Order Comment: TEST PERFORMED AT:[place] [address] Performed By: #### 8 1003 ####[facility] Znkoqiayt5230 [place] [id number] KETONES, URINE POC Trace Abnormal Negative [facility] Comment on above: Order Comment: TEST PERFORMED AT:[place] [address] Performed By: #### 8 1003 ####[facility] Uryqjzshx0979 [place] [address] LEUKOCYTES, URINE POC Negative Normal Negative [facility] Comment on above: Order Comment: TEST PERFORMED AT:[place] [address] Performed By: #### 8 1003 ####[facility] Mcacpwrep0865 [place] [id number] NITRITES, URINE POC Negative Normal Negative [facility] Comment on above: Order Comment: TEST PERFORMED AT:[place] [address] Performed By: #### 8 1003 ####[facility] [address] [place], [place] [id number] PH, URINE POC 5.0 Normal 5.0-8.0 [facility] Comment on above: Order Comment: TEST PERFORMED AT:[place] [address] Performed By: #### 8 1003 ####[facility] Hfpivyxcp[address] [place] [id number] PROTEIN, URINE POC 100 Abnormal Negative [facility] Comment on above: Order Comment: TEST PERFORMED AT:[place] [address] Performed By: #### 8 1003 ####[facility] R[address]bxsrg[address] [place] [id number] SPECIFIC GRAVITY, POC >=1.030 Normal 1.005 - 1.030 [facility] Comment on above: Order Comment: TEST PERFORMED AT:[place] [address] Performed By: #### 8 1003 ####[facility] [id number] [place] [id number] UROBILINOGEN, URINE POC 2.0 Abnormal 0.2 - 1.0 [facility] Comment on above: Order Comment: TEST PERFORMED AT:[place] [address] [address] [place], [place] [address] Performed By: #### 8 1003 ####[facility] [id number] [place], [place] URINE CULTUREon 08-27-2024 Bacteria identified Cx Nom (U) C URINE: No growth of greater than 1,000 CFU/ml Normal [facility] Comment on above: Performed By: #### C URINE ####[facility] [id number] [place], [place] VITAMIN B12 (CYANOCOBALAMIN) on 08-27-2024 Cobalamin (Vitamin B12) [Mass/Vol] 927 pg/mL High 180-914 [facility] Comment on above: Order Comment: Defic ient: <= 145 pg/mLInsufficient: 145 - 180 pg/mLSufficient: 180 - 914 pg/mL Performed By: #### M G, TSH HS, CALEB, SYPTOTALTPPA, 34559-4, VITB12, CH8 ####[facility] [id number] [place], [place], VITAMIN D, 25-HYDROXYon 08-01 VITD25 13.3 ng/mL Low 30-100 [facility] Comment on above: Order Comment: Defic ient : <20.0 ng/mLInsufficient : 20.0-29.9 ng/mLSufficient : 30.0 - 100.0 ng/mLPotential Toxicity : >100.0 ng/mL Performed By: #### P HOS, FT3, T4 F, VITD25, xochitl ####[facility] [id number] [place], [place], 36on 08-25-2024 36 Normal [facility] CBC W Auto Differential pane l (Bld)on 08-25-2024 Basophils (Bld) [#/Vol] 0 10*3/uL 0.0 - 0.2 10*3/uL [facility] Basophils/100 WBC (Bld) 0.2 % 0.0 - 2.0 % [facility] Eosinophils (Bld) [#/Vol] 0 10*3/uL 0.0 - 0.5 10*3/uL [facility] Eosinophils/100 WBC (Bld) 0.1 % 0.0 - 6.0 % [facility] Erythrocyte distribution width (RBC) [Ratio] 12.6 % 11.5 - 15.0 % [facility] Hematocrit (Bld) [Volume fraction] 41.3 % 40.0 - 52.0 % [facility] Hemoglobin (Bld) [Mass/Vol] 13.6 g/dL 13.0 - 18.0 g/dL [facility] Immature granulocytes (Bld) [#/Vol] 0 10*3/uL NINF - 0.1 10*3/uL [facility] Immature granulocytes/100 WBC (Bld) 0.2 % 0.0 - 2.0 % [facility] Interpretation and review of laboratory results Abnormal [facility] Lymphocytes (Bld) [#/Vol] 2.4 10*3/uL 1.0 - 4.3 10*3/uL [facility] Lymphocytes/100 WBC (Bld) 29.7 % 15.0 - 45.0 % [facility] MCH (RBC) [Entitic mass] 33.2 pg 26.0 - 34.0 pg [facility] MCHC (RBC) [Mass/Vol] 32.9 % 30.5 - 36.0 % [facility] MCV (RBC) [Entitic vol] 100.7 fL High 77.0 - 99.0 fL [facility] Monocytes (Bld) [#/Vol] 0.7 10*3/uL 0.0 - 0.9 10*3/uL [facility] Monocytes/100 WBC (Bld) 8.2 % 5.0 - 13.0 % [facility] Neutrophils (Bld) [#/Vol] 5.1 10*3/uL 1.8 - 7.5 10*3/uL [facility] Neutrophils/100 WBC (Bld) 61.6 % 38.0 - 82.0 % [facility] Nucleated RBC/100 WBC (Bld) [Ratio] 0 % [facility] Platelet mean volume (Bld) [Entitic vol] 9.5 fL 9.0 - 12.7 fL [facility] Platelets (Bld) [#/Vol] 227 10*3/uL 140 - 440 10*3/uL [facility] RBC (Bld) [#/Vol] 4.1 10*6/uL Low 4.40 - 5.9 0 10*6/uL [facility] WBC (Bld) [#/Vol] 8.2 10*3/uL 3.6 - 10.7 10*3/uL [facility] CBC WITH AUTO DIFFERENTIALon 08-25-2024 Basophils (Bld) [#/Vol] 0.0 10*3/uL Normal 0.0-0.2 [facility] Comment on above: Performed By: #### L [id number] ####Medical Technician Assistant: LESLEE HERNANDEZ ([phone])[facility] ([facility])[address] [place] [address] Basophils/100 WBC (Bld) 0.2 % Normal 0.0-2.0 [facility] Comment on above: Performed By: #### L [id number] ####Medical Technician Assistant: LESLEE HERNANDEZ ([phone])[facility] ([facility])[address] Eosinophils (Bld) [#/Vol] 0.0 10*3/uL Normal 0.0-0.5 [facility] Comment on above: Performed By: #### L [id number] ####Medical Technician Assistant: LESLEE HERNANDEZ ([phone])[facility] ([facility])[address] [place] [address] Eosinophils/100 WBC (Bld) 0.1 % Normal 0.0-6.0 [facility] Comment on above: Performed By: #### L [id number] ####Medical Technician Assistant: LESLEE HERNANDEZ ([phone])[facility] ([facility])[address] [place] [address] [place] Erythrocyte distribution width (RBC) [Ratio] 12.6 % Normal 11.5-15.0 [facility] Comment on above: Performed By: #### L [id number] ####Medical Technician Assistant: LESLEE HERNANDEZ ([phone])[facility] ([facility])[address] Hematocrit (Bld) [Volume fraction] 41.3 % Normal 40.0-52.0 [facility] Comment on above: Performed By: #### L [id number] ####Medical Technician Assistant: LESLEE HERNANDEZ ([phone])[facility] ([facility])[address] Hemoglobin (Bld) [Mass/Vol] 13.6 g/dL Normal 13.0-18.0 [facility] Comment on above: Performed By: #### L [id number] ####Medical Technician Assistant: LESLEE HERNANDEZ ([phone])[facility] ([facility])[address] IMMATURE GRANS % 0.2 % Normal 0.0-2.0 [facility] Comment on above: Performed By: #### L [id number] ####Medical Technician Assistant: LESLEE HERNANDEZ ([phone])[facility] ([facility])[address] IMMATURE GRANS ABSOLUTE 0.0 10*3/uL Normal <0.1 [facility] Comment on above: Performed By: #### L [id number] ####Medical Technician Assistant: LELSEE HERNANDEZ ([phone])[facility] ([facility])[address] Lymphocytes (Bld) [#/Vol] 2.4 10*3/uL Normal 1.0-4.3 [facility] Comment on above: Performed By: #### L [id number] ####Medical Technician Assistant: LESLEE HERNANDEZ ([phone])[facility] ([facility])[address] [place] [address] [place] Lymphocytes/100 WBC (Bld) 29.7 % Normal 15.0-45.0 [facility] Comment on above: Performed By: #### L [id number] ####Medical Technician Assistant: LESLEE HERNANDEZ ([phone])[facility] ([facility])[address] MCH (RBC) [Entitic mass] 33.2 pg Normal 26.0-34.0 [facility] Comment on above: Performed By: #### L [id number] ####Medical Technician Assistant: LESLEE HERNANDEZ ([phone])[facility] [place] ([facility])[address] MCHC 32.9 % Normal 30.5-36.0 [facility] Comment on above: Performed By: #### L [id number] ####Medical Technician Assistant: LESLEE HERNANDEZ ([phone])[facility] ([facility])[address] MCV (RBC) [Entitic vol] 100.7 fL High 77.0-99.0 [facility] Comment on above: Performed By: #### L [id number] ####Medical Technician Assistant: LESLEE HERNANDEZ ([phone])[facility] ([facility])[address] Monocytes (Bld) [#/Vol] 0.7 10*3/uL Normal 0.0-0.9 [facility] Comment on above: Performed By: #### L [id number] ####Medical Technician Assistant: LESLEE HERNANDEZ ([phone])[facility] ([facility])[address] Monocytes/100 WBC (Bld) 8.2 % Normal 5.0-13.0 [facility] Comment on above: Performed By: #### L [id number] ####Medical Technician Assistant: LESLEE HERNANDEZ ([phone])[facility] [place] ([facility])[address] NEUTROPHILS ABSOLUTE 5.1 10*3/uL Normal 1.8-7.5 [facility] Comment on above: Performed By: #### L [id number] ####Medical Technician Assistant: LESLEE HERNANDEZ ([phone])[facility] ([facility])[address] Neutrophils/100 WBC (Bld) 61.6 % Normal 38.0-82.0 [facility] Comment on above: Performed By: #### L [id number] ####Medical Technician Assistant: LESLEE HERNANDEZ ([phone])[facility] [place] ([facility])[address] NRBC 0.0 /100 WBCs Normal 0.0-2.0 [facility] Comment on above: Performed By: #### L [id number] ####Medical Technician Assistant: LESLEE HERNANDEZ ([phone])[facility] ([facility])[address] Platelet mean volume (Bld) [Entitic vol] 9.5 fL Normal 9.0-12.7 [facility] Comment on above: Performed By: #### L [id number] ####Medical Technician Assistant: LESLEE HERNANDEZ ([phone])[facility] ([facility])[address] Platelets (Bld) [#/Vol] 227 10*3/uL Normal 140-440 [facility] Comment on above: Performed By: #### L [id number] ####Medical Technician Assistant: LESLEE HERNANDEZ ([phone])[facility] ([facility])[address] RBC (Bld) [#/Vol] 4.10 10*6/uL Low 4.40-5.90 [facility] Comment on above: Performed By: #### L [id number] ####Medical Technician Assistant: LESLEE HERNANDEZ ([phone])[facility] ([facility])[address] [place] [address] [place] WBC (Bld) [#/Vol] 8.2 10*3/uL Normal 3.6-10.7 [facility] Comment on above: Performed By: #### L [id number] ####Medical Technician Assistant: LESLEE HERNANDEZ ([phone])[facility] ([facility])[address] COMPREHENSIVE METABOLIC PANE Ming 08-25-2024 Albumin [Mass/Vol] 3.4 g/dL Low 3.5-5.0 [facility] Comment on above: Performed By: #### Pedro AB17, [id number], [id number] ####Medical Technician Assistant: LESLEE HERNANDEZ ([phone])[facility] ([facility])[address] ALP [Catalytic activity/Vol] 161 U/L High 40-150 [facility] Comment on above: Performed By: #### L AB17, [id number], [id number] ####Medical Technician Assistant: LESLEE HERNANDEZ ([phone])[facility] ([facility])[address] ALT [Catalytic activity/Vol] 110 U/L High <40 [facility] Comment on above: Performed By: #### Pedro AB17, [id number], [id number] ####Medical Technician Assistant: LESLEE HERNANDEZ ([phone])[facility] ([facility])[address] Anion gap [Moles/Vol] 14 mmol/L High 3-13 [facility] Comment on above: Performed By: #### Pedro AB17, [id number], [id number] ####Medical Technician Assistant: LESLEE HERNANDEZ ([phone])[facility] ([facility])[address] AST [Catalytic activity/Vol] 75 U/L High <34 [facility] Comment on above: Performed By: #### L AB17, [id number], [id number] ####Medical Technician Assistant: LESLEE HERNANDEZ ([phone])[facility] ([facility])[address] Bilirubin [Mass/Vol] 3.0 mg/dL High <1.2 [facility] Comment on above: Performed By: #### Pedro AB17, [id number], [id number] ####Medical Technician Assistant: LESLEE HERNANDEZ ([phone])[facility] ([facility])[address] Calcium [Mass/Vol] 9.3 mg/dL Normal 8.4-10.2 [facility] Comment on above: Performed By: #### L AB17, [id number], [id number] ####Medical Technician Assistant: LESLEE HERNANDEZ ([phone])[facility] ([facility])[address] Chloride [Moles/Vol] 102 mmol/L Normal 98-107 [facility] Comment on above: Performed By: #### L AB17, [id number], [id number] ####Medical Technician Assistant: LESLEE HERNANDEZ ([phone])[facility] ([facility])[address] CO2 [Moles/Vol] 22 mmol/L Normal 22-29 [facility] Comment on above: Performed By: #### L AB17, [id number], [id number] ####Medical Technician Assistant: LESLEE HERNANDEZ ([phone])[facility] ([facility])[address] Creatinine [Mass/Vol] 2.06 mg/dL High 0.72-1.25 [facility] Comment on above: Performed By: #### L AB17, [id number], [id number] ####Medical Technician Assistant: LESLEE HERNANDEZ ([phone])[facility] ([facility])[address] GLOMERULAR FILTRATION RATE ML/MIN/1.73 SQ M.PREDICTED 39.5 mL/min/1.73m*2 Low >60.0 [facility] Comment on above: Result Comment: Calc ulation based on the Chronic Kidney Disease Epidemiology Collaboration (CKD-EPI) equation refit without adjustment for race Performed By: #### L AB17, [id number], [id number] ####Medical Technician Assistant: LESLEE HERNANDEZ ([phone])[facility] ([facility])[address] [place] [address] [place] Glucose [Mass/Vol] 113 mg/dL High 74-100 [facility] Comment on above: Performed By: #### L AB17, [id number], [id number] ####Medical Technician Assistant: LESLEE HERNANDEZ ([phone])[facility] (SBHL[facility])[address] Potassium [Moles/Vol] 3.9 mmol/L Normal 3.5-5.1 [facility] Comment on above: Result Comment: [facility] potassium values may be up to 0.5 mmol/L lower than serum values. Performed By: #### L AB17, [id number], [id number] ####Medical Technician Assistant: LESLEE HERNANDEZ ([phone])[facility] ([facility])[address] Protein [Mass/Vol] 6.6 g/dL Normal 6.4-8.3 [facility] Comment on above: Performed By: #### Pedro AB17, [id number], [id number] ####Medical Technician Assistant: LESLEE HERNANDEZ ([phone])[facility] (HLAB)[address] Sodium [Moles/Vol] 138 mmol/L Normal 136-145 [facility] Comment on above: Performed By: #### Pedro AB17, [id number], [id number] ####Medical Technician Assistant: LESLEE HERNANDEZ ([phone])[facility] ([facility])[address] Urea nitrogen [Mass/Vol] 51 mg/dL High 8-21 [facility] Comment on above: Performed By: #### L AB17, [id number], [id number] ####Medical Technician Assistant: LESLEE HERNANDEZ ([phone])[facility] ([facility])[address] Comprehensive metabolic 2000 panelon 08-25-2024 Albumin [Mass/Vol] 3.4 g/dL Low 3.5 - 5.0 g/dL [facility] ALP [Catalytic activity/Vol] 161 U/L High 40 - 150 U/L [facility] ALT [Catalytic activity/Vol] 110 U/L High NINF - 40 U/L [facility] Anion gap [Moles/Vol] 14 mmol/L High 3 - 13 mmol/L [facility] AST [Catalytic activity/Vol] 75 U/L High NINF - 34 U/L [facility] Bilirubin [Mass/Vol] 3 mg/dL High NINF - 1.2 mg/dL [facility] Calcium [Mass/Vol] 9.3 mg/dL 8.4 - 10. 2 mg/dL [facility] Chloride [Moles/Vol] 102 mmol/L 98 - 10 7 mmol/L [facility] CO2 [Moles/Vol] 22 mmol/L 22 - 29 mmol/L [facility] Creatinine [Mass/Vol] 2.06 mg/dL High 0.72 - 1.25 mg/dL [facility] GFR/1.73 sq M.predicted (S/P/Bld) [Vol rate/Area] 39.5 mL/min Low - PINF [facility] Comment on above: Calculation based on the Chronic Kidney Disease Epidemiology Collaboration (CKD-EPI) equation refit without adjustment for race Glucose [Mass/Vol] 113 mg/dL High 74 - 100 mg/dL [facility] Interpretation and review of laboratory results Abnormal [facility] Potassium [Moles/Vol] 3.9 mmol/L 3.5 - 5.1 mmol/L [facility] Comment on above: Plasma potassium heidi ues may be up to 0.5 mmol/L lower than serum values. Protein [Mass/Vol] 6.6 g/dL 6.4 - 8.3 g/dL [facility] Sodium [Moles/Vol] 138 mmol/L 136 - 145 mmol/L [facility] Urea nitrogen [Mass/Vol] 51 mg/dL High 8 - 21 mg/dL [facility] ECG 12-LEADon 08-25-2024 ECG 12-LEAD IMPRESSION: Sinus tachycardia Left atrial enlargement Nonspecific IVCD with LAD Left ventricular hypertrophy ST elevation secondary to IVCD Electronically Signed On 08-25-2024 17:33:52 EST by Jamal Dia Normal [facility] ED Nursing Noteon 08-25-2024 ED Nursing Note Patient refusing covid/flu swab stating I would know if I had that and I haven't gotten it since it came out. Dr. Schaffer notified and aware. Normal [facility] ED Provider Noteon ED Provider Note Normal [facility] HIGH SENSITIVITY TROPONIN, S ERIAL BASELINEon 08-25-2024 TROPONIN HS SERIAL BASELINE 28 ng/L Normal <=35 [facility] Comment on above: Result Comment: In i ndividuals presenting with symptoms > 2h, a baseline troponin <= 5 ng/L suggests acutecardiac injury is unlikely and further serial testing is generally not indicated. Performed By: #### L AB17, [id number], [id number] ####Medical Technician Assistant: LESLEE HERNANDEZ ([phone])[facility] ([facility])[address] [place] [address] HIGH SENSITIVITY TROPONIN, S ERIAL, SECOND TESTon 08-25-2024 2H TROPONIN HS (SERIAL 2ND TROPONIN) 28 ng/L Normal <=35 [facility] Comment on above: Result Comment: Risi ng or falling troponin delta below 2 ng/L as compared to baseline value suggests thatacute cardiac injury is unlikely. Performed By: #### L [id number] ####Medical Technician Assistant: LESLEE HERNANDEZ ([phone])[facility] ([facility])[address] [place] [address] NT PRO BNPon 08-25-2024 Natriuretic peptide B (Bld) [Mass/Vol] 54752 pg/mL High <125 [facility] Comment on above: Performed By: #### L AB17, [id number], [id number] ####Medical Technician Assistant: LESLEE HERNANDEZ ([phone])[facility] [place] [address] [place] Natriuretic peptide B [Mass/ Vol]on 08-25-2024 Interpretation and review of laboratory results Abnormal [facility] Natriuretic peptide B (Bld) [Mass/Vol] 62118 pg/mL High NINF - 125 pg/mL [facility] No Panel Informationon 08-25 2h Troponin HS (Serial 2nd Troponin) 28 ng/L NINF - 35 ng/L [facility] Comment on above: Rising or falling tr oponin delta below 2 ng/L as compared to baseline value suggests that acute cardiac injury is unlikely. Interpretation and review of laboratory results Normal [facility] Interpretation and review of laboratory results Normal [facility] Troponin HS Serial Baseline 28 ng/L NINF - 35 ng/L [facility] Comment on above: In individuals prese nting with symptoms > 2h, a baseline troponin <= 5 ng/L suggests acute cardiac injury is unlikely and further serial testing is generally not indicated. [facility] XR Chest Single viewon 08-25 Moderate cardiomegaly, unchanged. No acute pulmonary abnormality. Report Dictated on Electronically Signed By: Eugene Louise DO Electronically Signed Date/Time: 08/25/2024 3:12 AM EST [facility] Patient Name: CARLO MEDINA : 1980 [...] BONES/JOINTS: Thoracic degenerative spondylosis. No acute fracture. [facility] Eugene Louise DO - 08/25/2024 Patient [...] DO Electronically Signed Date/Time: 08/25/2024 3:12 AM [facility] Radiology Study observation (narrative) [facility] XR Chest Single viewOrdered By: Eugene Louise on 08-25-2024 [facility] Work Phone: 36on 08-23-2024 36 Normal [facility] 36 Discharged with hear t failure. Needs 72 hour post discharge phone call. Normal [facility] CT ABDOMEN PELVIS WO IV CONT RASTon 08-23-2024 CT ABDOMEN PELVIS WO IV CONTRAST Normal [facility] CT Abdomen and Pelvis WO con traston 08-23-2024 1. Cardiomegaly. 2. Small amount of free fluid within the dependent pelvis. Trace amount of perihepatic free fluid. Report Dictated on Electronically Signed By: Juan Pereira MD Electronically Signed Date/Time: 08/23/2024 6:56 AM [facility] Patient Name: CARLO MEDINA : 1980 [...] umbilical hernia. Osseous structures: No osseous abnormalities. [facility] Juan Pereira MD - 08/23/2024 [facility] 1980 [id number] Exam Date/Time: 08/23/2024 06:34 Procedure: CT ABDOMEN [...] Electronically Signed Date/Time: 08/23/2024 6:56 AM EST [facility] Radiology Study observation (narrative) [facility] ECG 12-LEADon 08-23-2024 ECG 12-LEAD Normal [facility] ED NOTEon 08-23-2024 ED NOTE HNO ID: [id number] Author: LORAINE ZAYAS Medic Service: ? Author Type: Inverted Block Operator and Facilities Clerk Type: ED Notes Filed: 08/23/2024 03:55 Note Text: Refused C trop Normal [facility] ED NOTE HNO ID: [id number] Author: JC CASEY ST Service: Emergency Medicine Author Type: Facilities Clerk Type: ED Notes Filed: 08/23/2024 03:49 Note [...] third trop needing to be drawn. Normal [facility] ED Nursing Noteon 08-23-2024 ED Nursing Note Normal [facility] ED Nursing Note Pt. Ambulated to bathroom. Will monitor for pt. Return to room. Normal [facility] ED Nursing Note Normal [facility] ED Provider Noteon ED Provider Note Normal [facility] No Panel Informationon 08-23 P [place] 58 degrees [facility] [place] Interval 129 ms [facility] QRS Ar[place] -78 degrees [facility] QRSD Interval [facility] Interval 380 ms [facility] QTC Interval 535 ms [facility] T Wave [place] 76 degrees [facility] Sinus tachycardia Ventricular premature complex Probable [...] On 08-23-2024 07:36:51 EST by Vic Loaiza [facility] Progress Noteon 08-23-2024 Progress Note Normal [facility] Vital signson 08-23-2024 Heart rate 119 /min bpm [facility] [employer] XR Chest Single viewon 08-23 1. No acute cardiopulmonary process. 2. Cardiomegaly. Report Dictated on Electronically Signed By: Juan Pereira MD Electronically Signed Date/Time: 08/23/2024 6:43 AM EST [facility] Patient Name: CARLO MEDINA : 1980 [...] changes of the thoracic spine are noted. [facility] Juan Pereira MD - 08/23/2024 Patient Name: [...] Electronically Signed Date/Time: 08/23/2024 6:43 AM EST [facility] [employer] Radiology Study observation (narrative) [facility] XR Chest Single viewOrdered By: Juan Pereira on 08-23-2024 [facility] Work Phone: CBC W Auto Differential pane l (Bld)on 08-22-2024 Basophils (Bld) [#/Vol] 0.03 10*3/uL Normal <0.11 [facility] Comment on above: Order Comment: Speci men Type: BLOOD SPECIMENOrdering Facility: [facility] Address: [address] [place] [address] Performed By: #### 5 7021-8 ####[facility] LABORATORYCLIA [id number] [place] [address] [place] Basophils/100 WBC (Bld) 0.3 % Normal [facility] Comment on above: Order Comment: Speci men Type: BLOOD SPECIMENOrdering Facility: [facility] Address: [address] [place] [address] Performed By: #### 5 7021-8 ####[facility] LABORATORYCLIA [id number] [place] [address] [place] [place] Differential cell count method Nom (Bld) Auto Normal [facility] Comment on above: Order Comment: Speci men Type: BLOOD SPECIMENOrdering Facility: [facility] Address: [address] [place] [address] Performed By: #### 5 7021-8 ####[facility] LABORATORYCLIA [id number] [place] [address] [place] Eosinophils (Bld) [#/Vol] 0.05 10*3/uL Normal <0.46 [facility] Comment on above: Order Comment: Speci men Type: BLOOD SPECIMENOrdering Facility: [facility] Address: [address] [place] [address] Performed By: #### 5 7021-8 ####[facility] LABORATORYCLIA [id number] [address] Eosinophils/100 WBC (Bld) 0.6 % Normal [facility] Comment on above: Order Comment: Speci men Type: BLOOD SPECIMENOrdering Facility: [facility] Address: [address] [place] [address] Performed By: #### 5 7021-8 ####[facility] LABORATORYCLIA [id number] [address] Erythrocyte distribution width (RBC) [Ratio] 12.7 % Normal 11.5-15.0 [facility] Comment on above: Order Comment: Speci men Type: BLOOD SPECIMENOrdering Facility: [facility] Address: [address] [place] [address] Performed By: #### 5 7021-8 ####[facility] LABORATORYCLIA [id number] [address] Hematocrit (Bld) [Volume fraction] 45.0 % Normal 39.0-51.0 [facility] Comment on above: Order Comment: Speci men Type: BLOOD SPECIMENOrdering Facility: [facility] Address: [address] [place] [address] Performed By: #### 5 7021-8 ####[facility] LABORATORYCLIA [id number] [address] OF [place] Hemoglobin (Bld) [Mass/Vol] 14.3 g/dL Normal 13.0-17.0 [facility] Comment on above: Order Comment: Speci men Type: BLOOD SPECIMENOrdering Facility: [facility] Address: [address] [place] [address] Performed By: #### 5 7021-8 ####[facility]ORATORYCLIA [id number] [address] [place] Immature granulocytes (Bld) [#/Vol] 10*3/uL Normal <0.10 [facility] Comment on above: Order Comment: Speci men Type: BLOOD SPECIMENOrdering Facility: [facility] Address: [address] [place] [address] Performed By: #### 5 7021-8 ####[facility] LABORATORYCLIA [id number] [address] Immature granulocytes/100 WBC (Bld) 0.2 % Normal [facility] Comment on above: Order Comment: Speci men Type: BLOOD SPECIMENOrdering Facility: [facility] Address: [address] [place] [address] Performed By: #### 5 7021-8 ####[facility]ATORYCLIA [id number] [address] Lymphocytes (Bld) [#/Vol] 2.99 10*3/uL Normal 1.00-4.00 [facility] Comment on above: Order Comment: Speci men Type: BLOOD SPECIMENOrdering Facility: [facility] Address: [address] [place] [address] Performed By: #### 5 7021-8 ####[facility]ATORYCLIA [id number] [address] Lymphocytes/100 WBC (Bld) 33.1 % Normal [facility] Comment on above: Order Comment: Speci men Type: BLOOD SPECIMENOrdering Facility: [facility] Address: [address] [place] [address] Performed By: #### 5 7021-8 ####[facility]ORATORYCLIA [id number] [address] [place] MCH (RBC) [Entitic mass] 33.8 pg Normal 26.0-34.0 [facility] Comment on above: Order Comment: Speci men Type: BLOOD SPECIMENOrdering Facility: [facility] Address: [address] [place] [address] Performed By: #### 5 7021-8 ####[facility]ATORYCLIA [id number] [address] MCHC (RBC) [Mass/Vol] 31.8 g/dL Normal 30.5-36.0 [facility] Comment on above: Order Comment: Speci men Type: BLOOD SPECIMENOrdering Facility: [facility] Address: [address] [place] [address] Performed By: #### 5 7021-8 ####[facility]ATORYCLIA [id number] [address] [place] MCV (RBC) [Entitic vol] 106.4 fL High 80.0-100.0 [facility] Comment on above: Order Comment: Speci men Type: BLOOD SPECIMENOrdering Facility: [facility] Address: [address] [place] [address] Performed By: #### 5 7021-8 ####[facility]ATORYCLIA [id number] [address] [place] Monocytes (Bld) [#/Vol] 0.70 10*3/uL Normal <0.87 [facility] Comment on above: Order Comment: Speci men Type: BLOOD SPECIMENOrdering Facility: [facility] Address: [address] [place] [address] Performed By: #### 5 7021-8 ####[facility]ATORYCLIA [id number] [address] STATES [facility] Monocytes/100 WBC (Bld) 7.8 % Normal [facility] Comment on above: Order Comment: Speci men Type: BLOOD SPECIMENOrdering Facility: [facility] Address: [address] [place] [address] Performed By: #### 5 7021-8 ####[facility]ATORYCLIA [id number] [address] [place] Neutrophils (Bld) [#/Vol] 5.24 10*3/uL Normal 1.45-7.50 [facility] Comment on above: Order Comment: Speci men Type: BLOOD SPECIMENOrdering Facility: [facility] Address: [address] [place] [address] Performed By: #### 5 7021-8 ####[facility]ATORYCLIA [id number] [address] Neutrophils/100 WBC (Bld) 58.0 % Normal [facility] Comment on above: Order Comment: Speci men Type: BLOOD SPECIMENOrdering Facility: [facility] Address: [address] [place] [address] Performed By: #### 5 7021-8 ####[facility]ATORYCLIA [id number] [address] Nucleated RBC (Bld) [#/Vol] 10*3/uL Normal <0.01 [facility] Comment on above: Order Comment: Speci men Type: BLOOD SPECIMENOrdering Facility: [facility] Address: [address] [place] [address] Performed By: #### 5 7021-8 ####[facility]ATORYCLIA [id number] [address] Nucleated RBC/100 WBC (Bld) [Ratio] 0.0 /100 WBC Normal [facility] Comment on above: Order Comment: Speci men Type: BLOOD SPECIMENOrdering Facility: [facility] Address: [address] [place] [address] Performed By: #### 5 7021-8 ####[facility]ATORYCLIA [id number] [address] [place] Platelet mean volume (Bld) [Entitic vol] 8.8 fL Low 9.0-12.7 [facility] Comment on above: Order Comment: Speci men Type: BLOOD SPECIMENOrdering Facility: [facility] Address: [address] [place] [address] Performed By: #### 5 7021-8 ####[facility]ATORYCLIA [id number] [address] Platelets (Bld) [#/Vol] 283 10*3/uL Normal 150-400 [facility] Comment on above: Order Comment: Speci men Type: BLOOD SPECIMENOrdering Facility: [facility] Address: [address] [place] [address] Performed By: #### 5 7021-8 ####[facility]ATORYCLIA [id number] [address] RBC (Bld) [#/Vol] 4.23 10*6/uL Normal 4.20-6.00 [facility] Comment on above: Order Comment: Speci men Type: BLOOD SPECIMENOrdering Facility: [facility] Address: [address] [place] [address] Performed By: #### 5 7021-8 ####[facility]ATORYCLIA [id number] [address] WBC (Bld) [#/Vol] 9.03 10*3/uL Normal 3.70-11.00 [facility] Comment on above: Order Comment: Speci men Type: BLOOD SPECIMENOrdering Facility: [facility] Address: [address] [place] [address] Performed By: #### 5 7021-8 ####[facility]ATORYCLIA [id number] [address] Comprehensive metabolic 2000 panelon 08-22-2024 Albumin [Mass/Vol] 3.9 g/dL Normal 3.9-4.9 [facility] Comment on above: Order Comment: Speci men Type: BLOOD SPECIMENOrdering Facility: [facility] Address: [address] [place] [address] Performed By: #### 2 4323-8, 3040-3, 32737-0, 98834-6 ####[facility]ATORYCLIA [id number] [place] [id number] [facility] [place] ALP [Catalytic activity/Vol] 197 U/L High 38-113 [facility] Comment on above: Order Comment: Speci men Type: BLOOD SPECIMENOrdering Facility: [facility] Address: [address] [place] [address] Performed By: #### 2 4323-8, 3040-3, 83690-8, 23412-6 ####[facility]ATORYCLIA [id number] [place] [address] [place] ALT With P-5'-P [Catalytic activity/Vol] 60 U/L High 10-54 [facility] Comment on above: Order Comment: Speci men Type: BLOOD SPECIMENOrdering Facility: [facility] Address: [address] [place] [address] Performed By: #### 2 4323-8, 3040-3, 19895-6, ####[facility]ATORYCLIA [id number] [place] [address] [place] Anion gap [Moles/Vol] 13 mmol/L Normal 8-15 [facility] Comment on above: Order Comment: Speci men Type: BLOOD SPECIMENOrdering Facility: [facility] Address: [address] [place] [address] Performed By: #### 2 4323-8, 3040-3, 49192-4, ####[facility]ATORYCLIA [id number] [place] [address] [place] AST With P-5'-P [Catalytic activity/Vol] 45 U/L High 14-40 [facility] Comment on above: Order Comment: Speci men Type: BLOOD SPECIMENOrdering Facility: [facility] Address: [address] [place] [address] Performed By: #### 2 4323-8, 3040-3, 84062-7, 53479-0 ####[facility]ATORYCLIA [id number] [place] [id number] [place] Bilirubin [Mass/Vol] 1.4 mg/dL High 0.2-1.3 [facility] Comment on above: Order Comment: Speci men Type: BLOOD SPECIMENOrdering Facility: [facility] Address: [address] [place] [address] Performed By: #### 2 4323-8, 3040-3, 81048-9, 13208-5 ####[facility]ATORYCLIA [id number] [place] [address] [place] Calcium [Mass/Vol] 8.9 mg/dL Normal 8.5-10.2 [facility] Comment on above: Order Comment: Speci men Type: BLOOD SPECIMENOrdering Facility: [facility] Address: [address] [place] [address] Performed By: #### 2 4323-8, 3040-3, 89254-3, 48775-6 ####[facility]ATORYCLIA [id number] [place] [address] [place] Chloride [Moles/Vol] 98 mmol/L Normal 98-107 [facility] Comment on above: Order Comment: Speci men Type: BLOOD SPECIMENOrdering Facility: [facility] Address: [address] [place] [address] Performed By: #### 2 4323-8, 3040-3, 46167-2, 88227-3 ####[facility]ATORYCLIA [id number] [place] [address] [place] CO2 [Moles/Vol] 29 mmol/L Normal 22-30 [facility] Comment on above: Order Comment: Speci men Type: BLOOD SPECIMENOrdering Facility: [facility] Address: [address] [place] [address] Performed By: #### 2 4323-8, 3040-3, 17614-0, 79428-9 ####[facility]ATORYCLIA [id number] [place] [address] [place] Creatinine [Mass/Vol] 1.93 mg/dL High 0.73-1.22 [facility] Comment on above: Order Comment: Speci men Type: BLOOD SPECIMENOrdering Facility: [facility] Address: [address] [place] [address] Performed By: #### 2 4323-8, 3040-3, 76903-8, 81391-2 ####[facility]ATORYCLIA [id number] [place] [address] [place] Creatinine and Glomerular filtration rate.predicted panel (S/P/Bld) 43 mL/min/1.73m??? Low >=60 [facility] Comment on above: Order Comment: Sunni reynoso Type: BLOOD SPECIMENOrdering Facility: [facility] Address: [address] [place] [address] Result Comment: Ella mated Glomerular Filtration Rate [...] GFR. Performed By: #### 2 4323-8, 3040-3, 48740-7, 17722-4 ####[facility]ATORYCLIA [id number] [place] [address] [place] Glucose [Mass/Vol] 130 mg/dL High 74-99 [facility] Comment on above: Order Comment: Sunni reynoso Type: BLOOD SPECIMENOrdering Facility: [facility] Address: [address] [place] [address] Result Comment: The [place] [employer] (ADA) provides guidance for cutoff [...] Standards of Medical Care in Diabetes 2016, [place] [employer]. Diabetes Care. 2016.39(Suppl 1). Performed By: #### 2 4323-8, 3040-3, 64661-0, 34323-7 ####[facility]ATORYCLIA [id number] [place] [address] [place] Potassium [Moles/Vol] 3.9 mmol/L Normal 3.7-5.1 [facility] Comment on above: Order Comment: Speci men Type: BLOOD SPECIMENOrdering Facility: [facility] Address: [address] [place] [address] Performed By: #### 2 4323-8, 3040-3, 59278-9, 40807-1 ####[facility]ATORYCLIA [id number] [address] [place] Protein [Mass/Vol] 6.8 g/dL Normal 6.3-8.0 [facility] Comment on above: Order Comment: Speci men Type: BLOOD SPECIMENOrdering Facility: [facility] Address: [address] [place] [address] Performed By: #### 2 4323-8, 3040-3, 68826-3, 19630-6 ####[facility]CL[facility] [id number] [address] STATES OF [facility] Sodium [Moles/Vol] 140 mmol/L Normal 136-144 [facility] Comment on above: Order Comment: Speci men Type: BLOOD SPECIMENOrdering Facility: [facility] Address: [address] [place] [address] Performed By: #### 2 4323-8, 3040-3, 64333-4, 70309-0 ####[facility]ATORYCLIA [id number] [address] [place] Urea nitrogen [Mass/Vol] 37 mg/dL High 9-24 [facility] Comment on above: Order Comment: Speci men Type: BLOOD SPECIMENOrdering Facility: [facility] Address: [address] [place] [address] Performed By: #### 2 4323-8, 3040-3, 67553-2, 65680-7 ####[facility]ATORYCLIA [id number] [address] [place] ECG COMPLETEon 08-22-2024 ECG COMPLETE Ventricular Rate : 115 BPM Atrial Rate : 115 BPM P-R Interval : 132 ms QRS Duration : 146 ms Q-T Interval : 388 ms QTC Calculation(Bazett) : 536 ms Calculated P Arden : 52 degrees Calculated R Arden : -71 degrees Calculated T Arden : 81 degrees SINUS TACHYCARDIA LEFT ATRIAL ENLARGEMENT LEFT AXIS DEVIATION LEFT BUNDLE BRANCH BLOCK ABNORMAL ECG NO PREVIOUS ECGS AVAILABLE Confirmed by EMILIE CAM MD ([id number]) on 11/01/2024 10:13:23 PM NAME : CARLO MEDINA PID : [id number] : 1980 Gender : Male Race : Unknown ORD : [id number] Procedure Date : Aug 22 2024 21:24:29 Edit Date : Nov 01 2024 22:13:25 Diagnosis: SINUS TACHYCARDIA LEFT ATRIAL ENLARGEMENT LEFT AXIS DEVIATION LEFT BUNDLE BRANCH BLOCK ABNORMAL ECG NO PREVIOUS ECGS AVAILABLE Confirmed by EMILIE CAM MD ([id number]) on 11/01/2024 10:13:23 PM Test Reason : Chest Pain Location : 4 : AKED Overread By : EMILIE CAM MD Edited By : EMILIE CAM MD Referred By : , Acquired by : JC CASEY [facility] ED Triage Noteon 08-22-2024 ED Triage Note HNO ID: [id number] Author: GRACE BOB PA-C Service: Emergency Medicine Author Type: Physician Pin Ticket Machine Operator Type: ED Triage Notes Filed: 08/22/2024 21:25 [...] around 4 PM today. Recent admission at [facility]. States has been compliant with his [...] ECG COMPLETE SIGNATURE: Grace Bob PA-C Normal [facility] HIGH SENSITIVITY TROPONIN T (INITIAL)on 08-22-2024 Troponin T.cardiac High sensitivity method [Mass/Vol] 35 ng/L High <12 [facility] Comment on above: Order Comment: Speci men Type: BLOOD SPECIMENOrdering Facility: [facility] Address: [address] [place] [address] Performed By: #### L [id number] ####[facility]ATORYCLIA [id number] [place] [address] [place] HIGH SENSITIVITY TROPONIN T (SECOND)on 08-22-2024 Troponin T.cardiac High sensitivity method [Mass/Vol] 35 ng/L High <12 [facility] Comment on above: Order Comment: Speci men Type: BLOOD SPECIMENOrdering Facility: [facility] Address: [address] [place] [address] Performed By: #### L [id number] ####[facility] LABORATORYCLIA [id number] [place] [address] [place] Lipase SerPl-cCncon 08-22-19 25 Lipase [Catalytic activity/Vol] 34 U/L Normal 16-61 [facility] Comment on above: Order Comment: Speci men Type: BLOOD SPECIMEN [facility] Address: [address] [place] [address] Performed By: #### 2 4325-3 #### [facility] CLIA [id number] [address] [place] [address] [place] Magnesium SerPl-mCncon 08-22 Magnesium [Mass/Vol] 2.2 mg/dL Normal 1.7-2.3 [facility] Comment on above: Order Comment: Speci men Type: BLOOD SPECIMEN [facility] Address: [address] [place] [address] Performed By: #### 2 4325-3 #### [facility] CLIA [id number] [address] [place] [facility] Natriuretic peptide.B prohormone N-Terminal [Mass/Vol] 66373 pg/mL High <125 [facility] Comment on above: Order Comment: Speci men Type: BLOOD SPECIMEN [facility] Address: [address] [place] [address] Performed By: #### 2 4325-3 #### [facility] CLIA [id number] [address] [place] [id number] [place] XR CHEST 2V FRONTAL/LATon XR [...] Large cardiac silhouette IMPRESSION: Enlarged cardiac silhouette. Associate Chemist: JOSE Transcribe Date/Time: Aug 22 2024 11:55P Dictated by : RADHA ASHBY MD This examination was interpreted and the report reviewed and electronically signed by: RADHA ASHBY MD on Aug 22 2024 11:56PM EST [id number] Normal [facility] 30on 08-20-2024 30 Electronically charla d by Jacque Clark RN on 08/20/2024 at 12:54 PM Normal [facility] [id number] 08-20-2024 [id number] Normal [facility] CBC W Auto Differential pane l (Bld)on 08-20-2024 Basophils (Bld) [#/Vol] 0.1 10*3/uL 0.0 - 0.2 10*3/uL [facility] Basophils/100 WBC (Bld) 0.7 % 0.0 - 2.0 % [facility] Eosinophils (Bld) [#/Vol] 0.1 10*3/uL 0.0 - 0.5 10*3/uL [facility] Eosinophils/100 WBC (Bld) 1.2 % 0.0 - 6.0 % [facility] Erythrocyte distribution width (RBC) [Ratio] 12.4 % 11.5 - 15.0 % [facility] Hematocrit (Bld) [Volume fraction] 42.1 % 40.0 - 52.0 % [facility] Hemoglobin (Bld) [Mass/Vol] 14.2 g/dL 13.0 - 18.0 g/dL [facility] Immature granulocytes (Bld) [#/Vol] 0 10*3/uL NINF - 0.1 10*3/uL [facility] Immature granulocytes/100 WBC (Bld) 0.4 % 0.0 - 2.0 % [facility] Interpretation and review of laboratory results Abnormal [facility] Lymphocytes (Bld) [#/Vol] 2.5 10*3/uL 1.0 - 4.3 10*3/uL [facility] Lymphocytes/100 WBC (Bld) 29.9 % 15.0 - 45.0 % [facility] MCH (RBC) [Entitic mass] 33.2 pg 26.0 - 34.0 pg [facility] MCHC (RBC) [Mass/Vol] 33.7 % 30.5 - 36.0 % [facility] MCV (RBC) [Entitic vol] 98.4 fL 77.0 - 99.0 fL [facility] Monocytes (Bld) [#/Vol] 0.7 10*3/uL 0.0 - 0.9 10*3/uL [facility] Monocytes/100 WBC (Bld) 8.5 % 5.0 - 13.0 % [facility] Neutrophils (Bld) [#/Vol] 4.9 10*3/uL 1.8 - 7.5 10*3/uL [facility] Neutrophils/100 WBC (Bld) 59.3 % 38.0 - 82.0 % [facility] Nucleated RBC/100 WBC (Bld) [Ratio] 0 % [facility] Platelet mean volume (Bld) [Entitic vol] 8.9 fL Low 9.0 - 12.7 fL [facility] Platelets (Bld) [#/Vol] 291 10*3/uL 140 - 440 10*3/uL [facility] RBC (Bld) [#/Vol] 4.28 10*6/uL Low 4.40 - 5.9 0 10*6/uL [facility] WBC (Bld) [#/Vol] 8.2 10*3/uL 3.6 - 10.7 10*3/uL [facility] CBC WITH AUTO DIFFERENTIALon 08-20-2024 Basophils (Bld) [#/Vol] 0.1 10*3/uL Normal 0.0-0.2 [facility] Comment on above: Performed By: #### L [id number] ####Medical Technician Assistant: NICOLE BOWERS ([phone])[facility])[address] [place] [address] Basophils/100 WBC (Bld) 0.7 % Normal 0.0-2.0 [facility] Comment on above: Performed By: #### L [id number] ####Medical Technician Assistant: NICOLE BOWERS ([phone])[facility] ([facility])[address] [place] [address] Eosinophils (Bld) [#/Vol] 0.1 10*3/uL Normal 0.0-0.5 [facility] Comment on above: Performed By: #### L [id number] ####Medical Technician Assistant: NICOLE BOWERS ([phone])[facility])[address] [place] [address] Eosinophils/100 WBC (Bld) 1.2 % Normal 0.0-6.0 [facility] Comment on above: Performed By: #### L [id number] ####Medical Technician Assistant: NICOLE BOWERS ([phone])[facility] ([facility])[address] [place] [address] Erythrocyte distribution width (RBC) [Ratio] 12.4 % Normal 11.5-15.0 [facility] Comment on above: Performed By: #### L [id number] ####Medical Technician Assistant: NICOLE BOWERS ([phone])[facility] ([facility])[address] [place] [address] [place] Hematocrit (Bld) [Volume fraction] 42.1 % Normal 40.0-52.0 [facility] Comment on above: Performed By: #### L [id number] ####Medical Technician Assistant: NICOLE BOWERS ([phone])[facility])[address] [place] [address] Hemoglobin (Bld) [Mass/Vol] 14.2 g/dL Normal 13.0-18.0 [facility] Comment on above: Performed By: #### L [id number] ####Medical Technician Assistant: NICOLE BOWERS ([phone])[facility] ([facility])[address] [place] [address] IMMATURE GRANS % 0.4 % Normal 0.0-2.0 [facility] Comment on above: Performed By: #### L [id number] ####Medical Technician Assistant: NICOLE BOWERS ([phone])[facility])[address] [place] [address] IMMATURE GRANS ABSOLUTE 0.0 10*3/uL Normal <0.1 [facility] Comment on above: Performed By: #### L [id number] ####Medical Technician Assistant: NICOLE BOWERS ([phone])[facility])[address] [place] [address] Lymphocytes (Bld) [#/Vol] 2.5 10*3/uL Normal 1.0-4.3 [facility] Comment on above: Performed By: #### L [id number] ####Medical Technician Assistant: NICOLE BOWERS ([phone])[facility])[address] [place] [address] Lymphocytes/100 WBC (Bld) 29.9 % Normal 15.0-45.0 [facility] Comment on above: Performed By: #### L [id number] ####Medical Technician Assistant: NICOLE BOWERS ([phone])[facility])[address] [place] [address] MCH (RBC) [Entitic mass] 33.2 pg Normal 26.0-34.0 [facility] Comment on above: Performed By: #### L [id number] ####Medical Technician Assistant: NICOLE BOWERS ([phone])[facility])[address] [place] [address] MCHC 33.7 % Normal 30.5-36.0 [facility] Comment on above: Performed By: #### L [id number] ####Medical Technician Assistant: NICOLE BOWERS ([phone])[facility])[address] [place] [address] MCV (RBC) [Entitic vol] 98.4 fL Normal 77.0-99.0 [facility] Comment on above: Performed By: #### L [id number] ####Medical Technician Assistant: NICOLE BOWERS ([phone])[facility])[address] [place] [address] Monocytes (Bld) [#/Vol] 0.7 10*3/uL Normal 0.0-0.9 [facility] Comment on above: Performed By: #### L [id number] ####Medical Technician Assistant: NICOLE BOWERS ([phone])[facility])[address] [place] [address] Monocytes/100 WBC (Bld) 8.5 % Normal 5.0-13.0 [facility] Comment on above: Performed By: #### L [id number] ####Medical Technician Assistant: NICOLE BOWERS ([phone])[facility])[address] [place] [address] NEUTROPHILS ABSOLUTE 4.9 10*3/uL Normal 1.8-7.5 [facility] Comment on above: Performed By: #### L [id number] ####Medical Technician Assistant: NICOLE BOWERS ([phone])[facility])[address] [place] [address] Neutrophils/100 WBC (Bld) 59.3 % Normal 38.0-82.0 [facility] Comment on above: Performed By: #### L [id number] ####Medical Technician Assistant: NICOLE BOWERS ([phone])[facility] ([facility])[address] [place] [address] NRBC 0.0 /100 WBCs Normal 0.0-2.0 [facility] Comment on above: Performed By: #### L [id number] ####Medical Technician Assistant: NICOLE BOWERS ([phone])[facility])[address] [place] [address] Platelet mean volume (Bld) [Entitic vol] 8.9 fL Low 9.0-12.7 [facility] Comment on above: Performed By: #### L [id number] ####Medical Technician Assistant: NICOLE BOWERS ([phone])[facility])[address] [place] [address] Platelets (Bld) [#/Vol] 291 10*3/uL Normal 140-440 [facility] Comment on above: Performed By: #### L [id number] ####Medical Technician Assistant: NICOLE BOWERS ([phone])[facility] ([facility])[address] [place] [address] RBC (Bld) [#/Vol] 4.28 10*6/uL Low 4.40-5.90 [facility] Comment on above: Performed By: #### L [id number] ####Medical Technician Assistant: NICOLE BOWERS ([phone])[facility])[address] [place] [address] WBC (Bld) [#/Vol] 8.2 10*3/uL Normal 3.6-10.7 [facility] Comment on above: Performed By: #### L [id number] ####Medical Technician Assistant: NICOLE BOWERS ([phone])[facility])[address] [place] [address] COMPREHENSIVE METABOLIC PANE Ming 08-20-2024 Albumin [Mass/Vol] 2.9 g/dL Low 3.5-5.0 [facility] Comment on above: Performed By: #### L [id number], [id number] ####Medical Technician Assistant: NICOLE BOWERS ([phone])[facility])[address] [place] [address] [place] ALP [Catalytic activity/Vol] 198 U/L High 40-150 [facility] Comment on above: Performed By: #### L [id number], LAB17 ####Medical Technician Assistant: NICOLE BOWERS ([phone])[facility] ([facility])[address] [place] [address] [place] ALT [Catalytic activity/Vol] 53 U/L High <40 [facility] Comment on above: Performed By: #### L [id number], LAB17 ####Medical Technician Assistant: NICOLE BOWERS ([phone])[facility] ([facility])[address] [place] [address] Anion gap [Moles/Vol] 9 mmol/L Normal 3-13 [facility] Comment on above: Performed By: #### L AB103, LAB17 ####Medical Technician Assistant: NICOLE BOWERS ([phone])[facility] ([facility])[address] [place] [address] AST [Catalytic activity/Vol] 33 U/L Normal <34 [facility] Comment on above: Performed By: #### L AB103, LAB17 ####Medical Technician Assistant: NICOLE BOWERS ([phone])[facility] ([facility])[address] [place] [address] Bilirubin [Mass/Vol] 1.6 mg/dL High <1.2 [facility] Comment on above: Performed By: #### L AB103, LAB17 ####Medical Technician Assistant: NICOLE BOWERS ([phone])[facility] ([facility])[address] [place] [address] Calcium [Mass/Vol] 7.6 mg/dL Low 8.4-10.2 [facility] Comment on above: Performed By: #### L AB103, LAB17 ####Medical Technician Assistant: NICOLE BOWERS ([phone])[facility] ([facility])[address] [place] [address] [place] Chloride [Moles/Vol] 101 mmol/L Normal 98-107 [facility] Comment on above: Performed By: #### L AB103, LAB17 ####Medical Technician Assistant: NICOLE BOWERS ([phone])[facility])[address] [place] [address] CO2 [Moles/Vol] 28 mmol/L Normal 22-29 [facility] Comment on above: Performed By: #### L AB103, LAB17 ####Medical Technician Assistant: NICOLE BOWERS ([phone])[facility])[address] [place] [address] Creatinine [Mass/Vol] 1.31 mg/dL High 0.72-1.25 [facility] Comment on above: Performed By: #### L AB103, LAB17 ####Medical Technician Assistant: NICOLE BOWERS ([phone])[facility])[address] [place] [address] GLOMERULAR FILTRATION RATE ML/MIN/1.73 SQ M.PREDICTED 68.0 mL/min/1.73m*2 Normal >60.0 [facility] Comment on above: Result Comment: Calc ulation based on the Chronic Kidney Disease Epidemiology Collaboration (CKD-EPI) equation refit without adjustment for race Performed By: #### L AB103, LAB17 ####Medical Technician Assistant: NICOLE BOWERS ([phone])[facility])[address] [place] [address] Glucose [Mass/Vol] 124 mg/dL High 74-100 [facility] Comment on above: Performed By: #### L AB103, LAB17 ####Medical Technician Assistant: NICOLE BOWERS ([phone])[facility])[address] [place] [address] [place] Potassium [Moles/Vol] 3.3 mmol/L Low 3.5-5.1 [facility] Comment on above: Result Comment: [facility] potassium values may be up to 0.5 mmol/L lower than serum values. Performed By: #### L AB103, LAB17 ####Medical Technician Assistant: NICOLE BOWERS ([phone])[facility])[address] [place] [address] [place] Protein [Mass/Vol] 6.0 g/dL Low 6.4-8.3 [facility] Comment on above: Performed By: #### L AB103, LAB17 ####Medical Technician Assistant: NICOLE BOWERS ([phone])[facility] ([facility])[address] [place] [address] Sodium [Moles/Vol] 138 mmol/L Normal 136-145 [facility] Comment on above: Performed By: #### Pedro JESSICA103, LAB17 ####Medical Technician Assistant: NICOLE BOWERS ([phone])[facility] ([facility])[address] [place] [address] Urea nitrogen [Mass/Vol] 33 mg/dL High 02-17 [facility] Comment on above: Performed By: #### Pedro ECHEVERRIA, LAB17 ####Medical Technician Assistant: NICOLE BOWERS ([phone])[facility] ([facility])[address] [place] [address] Comprehensive metabolic 1998 panelon 08-20-2024 Albumin [Mass/Vol] 2.9 g/dL Low 3.5 - 5.0 g/dL [facility] ALP [Catalytic activity/Vol] 198 U/L High 40 - 150 U/L [facility] ALT [Catalytic activity/Vol] 53 U/L High NINF - 40 U/L [facility] Anion gap [Moles/Vol] 9 mmol/L 3 - 13 mmol/L [facility] AST [Catalytic activity/Vol] 33 U/L NINF - 34 U/L [facility] Bilirubin [Mass/Vol] 1.6 mg/dL High NINF - 1.2 mg/dL [facility] Calcium [Mass/Vol] 7.6 mg/dL Low 8.4 - 10. 2 mg/dL [facility] Chloride [Moles/Vol] 101 mmol/L 98 - 10 7 mmol/L [facility] CO2 [Moles/Vol] 28 mmol/L 22 - 29 mmol/L [facility] Creatinine [Mass/Vol] 1.31 mg/dL High 0.72 - 1.25 mg/dL [facility] GFR/1.73 sq M.predicted (S/P/Bld) [Vol rate/Area] 68 mL/min - PINF [facility] Glucose [Mass/Vol] 124 mg/dL High 74 - 100 mg/dL [facility] Interpretation and review of laboratory results Abnormal [facility] Potassium [Moles/Vol] 3.3 mmol/L Low 3.5 - 5.1 mmol/L [facility] Protein [Mass/Vol] 6 g/dL Low 6.4 - 8.3 g/dL [facility] Sodium [Moles/Vol] 138 mmol/L 136 - 145 mmol/L [facility] Urea nitrogen [Mass/Vol] 33 mg/dL High 8 - 21 mg/dL [facility] Laboratory - Chemistry and C hemistry - challengeon 08-20-2024 Magnesium [Mass/Vol] 1.6 mg/dL 1.6 - 2 .6 mg/dL [facility] MAGNESIUMon 08-20-2024 Magnesium [Mass/Vol] 1.6 mg/dL Normal 1.6-2.6 [facility] Comment on above: Result Comment: ALEJANDRO Aleman COMMENTS:Higher values can be expected in females during menses. Performed By: #### L AB103, LAB17 ####Medical Technician Assistant: NICOLE BOWERS ([phone])[facility] ([facility])[address] [place] [address] Magnesium [Mass/Vol]on 08-20 Interpretation and review of laboratory results Normal [facility] Nursing Noteon 08-20-2024 Nursing Note . IV heplock removed . Discharge instructions reviewed with patient. All questions answered. Pt discharged to home with all belongings. Normal [facility] Nursing Note Pt adamant on leavin g right now. Pt does not want meds to beds Patient would like medications sent to the [facility] in [facility]. Dr. Aguilar notified via secure chat. Normal [facility] Nursing Note Dr. Briones notified regarding pt refusing meds and lab draw. Normal [facility] Nursing Note Dr. Aguilar notified tele order . Okay to have patient off tele. [facility] Progress Noteon 08-20-2024 Progress Note Normal [facility] Progress Note Normal [facility] 30on 08-19-2024 30 Normal [facility] 30 Normal [facility] [id number] 08-19-2024 [id number] When ok with Cardiology will be discharged. Refused to go to [facility] last night. We do not accept his insurance. Pt is aware. .s Normal [facility] BASIC METABOLIC PANELon 08-01 Anion gap [Moles/Vol] 12 mmol/L Normal 3-13 [facility] Comment on above: Performed By: #### L AB15 ####Medical Technician Assistant: NICOLE BOWERS ([phone])[facility] ([facility])[address] [place] [address] Calcium [Mass/Vol] 7.6 mg/dL Low 8.4-10.2 [facility] Comment on above: Performed By: #### L AB15 ####Medical Technician Assistant: NICOLE BOWERS ([phone])[facility] ([facility])[address] [place] [address] Chloride [Moles/Vol] 98 mmol/L Normal 98-107 [facility] Comment on above: Performed By: #### L AB15 ####Medical Technician Assistant: NICOLE BOWERS ([phone])[facility] ([facility])[address] [place] [address] CO2 [Moles/Vol] 30 mmol/L High 22-29 [facility] Comment on above: Performed By: #### L AB15 ####Medical Technician Assistant: NICOLE BOWERS ([phone])[facility] ([facility])[address] [place] [address] Creatinine [Mass/Vol] 1.50 mg/dL High 0.72-1.25 [facility] Comment on above: Performed By: #### L AB15 ####Medical Technician Assistant: NICOLE BOWERS ([phone])[facility])[address] [place] [address] GLOMERULAR FILTRATION RATE ML/MIN/1.73 SQ M.PREDICTED 57.8 mL/min/1.73m*2 Low >60.0 [facility] Comment on above: Result Comment: Calc ulation based on the Chronic Kidney Disease Epidemiology Collaboration (CKD-EPI) equation refit without adjustment for race Performed By: #### L AB15 ####Medical Technician Assistant: NICOLE BOWERS ([phone])[facility])[address] [place] [address] Glucose [Mass/Vol] 136 mg/dL High 74-100 [facility] Comment on above: Performed By: #### L AB15 ####Medical Technician Assistant: NICOLE BOWERS ([phone])[facility])[address] [place] [address] Potassium [Moles/Vol] 3.3 mmol/L Low 3.5-5.1 [facility] Comment on above: Result Comment: [facility] potassium values may be up to 0.5 mmol/L lower than serum values. Performed By: #### L AB15 ####Medical Technician Assistant: NICOLE BOWERS ([phone])[facility])[address] [place] [address] Sodium [Moles/Vol] 140 mmol/L Normal 136-145 [facility] Comment on above: Performed By: #### L AB15 ####Medical Technician Assistant: NICOLE BOWERS ([phone])[facility])[address] [place] [address] Urea nitrogen [Mass/Vol] 31 mg/dL High 8-21 [facility] Comment on above: Performed By: #### L AB15 ####Medical Technician Assistant: NICOLE BOWERS ([phone])[facility])[address] [place] [address] Basic metabolic 1998 panelon 08-19-2024 Anion gap [Moles/Vol] 12 mmol/L 3 - 13 mmol/L [facility] Calcium [Mass/Vol] 7.6 mg/dL Low 8.4 - 10. 2 mg/dL [facility] Chloride [Moles/Vol] 98 mmol/L 98 - 10 7 mmol/L [facility] CO2 [Moles/Vol] 30 mmol/L High 22 - 29 mmol/L [facility] Creatinine [Mass/Vol] 1.5 mg/dL High 0.72 - 1.25 mg/dL [facility] GFR/1.73 sq M.predicted (S/P/Bld) [Vol rate/Area] 57.8 mL/min Low - PINF [facility] Glucose [Mass/Vol] 136 mg/dL High 74 - 100 mg/dL [facility] Interpretation and review of laboratory results Abnormal [facility] Potassium [Moles/Vol] 3.3 mmol/L Low 3.5 - 5.1 mmol/L [facility] Sodium [Moles/Vol] 140 mmol/L 136 - 145 mmol/L [facility] Urea nitrogen [Mass/Vol] 31 mg/dL High 8 - 21 mg/dL [facility] CBC W Auto Differential pane l (Bld)on 08-19-2024 Basophils (Bld) [#/Vol] 0 10*3/uL 0.0 - 0.2 10*3/uL [facility] Basophils/100 WBC (Bld) 0.5 % 0.0 - 2.0 % [facility] Eosinophils (Bld) [#/Vol] 0.1 10*3/uL 0.0 - 0.5 10*3/uL [facility] Eosinophils/100 WBC (Bld) 0.8 % 0.0 - 6.0 % [facility] Erythrocyte distribution width (RBC) [Ratio] 12.7 % 11.5 - 15.0 % [facility] Hematocrit (Bld) [Volume fraction] 42.1 % 40.0 - 52.0 % [facility] Hemoglobin (Bld) [Mass/Vol] 14.1 g/dL 13.0 - 18.0 g/dL [facility] Immature granulocytes (Bld) [#/Vol] 0 10*3/uL NINF - 0.1 10*3/uL [facility] Immature granulocytes/100 WBC (Bld) 0.4 % 0.0 - 2.0 % [facility] Interpretation and review of laboratory results Abnormal [facility] Lymphocytes (Bld) [#/Vol] 2 10*3/uL 1.0 - 4.3 10*3/uL [facility] Lymphocytes/100 WBC (Bld) 25.9 % 15.0 - 45.0 % [facility] MCH (RBC) [Entitic mass] 33.2 pg 26.0 - 34.0 pg [facility] MCHC (RBC) [Mass/Vol] 33.5 % 30.5 - 36.0 % [facility] MCV (RBC) [Entitic vol] 99.1 fL High 77.0 - 99.0 fL [facility] Monocytes (Bld) [#/Vol] 0.5 10*3/uL 0.0 - 0.9 10*3/uL [facility] Monocytes/100 WBC (Bld) 7 % 5.0 - 13.0 % [facility] Neutrophils (Bld) [#/Vol] 4.9 10*3/uL 1.8 - 7.5 10*3/uL [facility] Neutrophils/100 WBC (Bld) 65.4 % 38.0 - 82.0 % [facility] Nucleated RBC/100 WBC (Bld) [Ratio] 0 % [facility] Platelet mean volume (Bld) [Entitic vol] 9.2 fL 9.0 - 12.7 fL [facility] Platelets (Bld) [#/Vol] 280 10*3/uL 140 - 440 10*3/uL [facility] RBC (Bld) [#/Vol] 4.25 10*6/uL Low 4.40 - 5.9 0 10*6/uL [facility] WBC (Bld) [#/Vol] 7.5 10*3/uL 3.6 - 10.7 10*3/uL [facility] CBC WITH AUTO DIFFERENTIALon 08-19-2024 Basophils (Bld) [#/Vol] 0.0 10*3/uL Normal 0.0-0.2 [facility] Comment on above: Performed By: #### L [id number] ####Medical Technician Assistant: NICOLE BOWERS ([phone])[address] Basophils/100 WBC (Bld) 0.5 % Normal 0.0-2.0 [facility] Comment on above: Performed By: #### L [id number] ####Medical Technician Assistant: NICOLE BOWERS ([phone])[facility])[address] [place] [address] Eosinophils (Bld) [#/Vol] 0.1 10*3/uL Normal 0.0-0.5 [facility] Comment on above: Performed By: #### L [id number] ####Medical Technician Assistant: NICOLE BOWERS ([phone])[address] Eosinophils/100 WBC (Bld) 0.8 % Normal 0.0-6.0 [facility] Comment on above: Performed By: #### L [id number] ####Medical Technician Assistant: NICOLE BOWERS ([phone])[facility])[address] [place] [address] Erythrocyte distribution width (RBC) [Ratio] 12.7 % Normal 11.5-15.0 [facility] Comment on above: Performed By: #### L [id number] ####Medical Technician Assistant: NICOLE BOWERS ([phone])[address] Hematocrit (Bld) [Volume fraction] 42.1 % Normal 40.0-52.0 [facility] Comment on above: Performed By: #### L [id number] ####Medical Technician Assistant: NICOLE BOWERS ([phone])[address] Hemoglobin (Bld) [Mass/Vol] 14.1 g/dL Normal 13.0-18.0 [facility] Comment on above: Performed By: #### L [id number] ####Medical Technician Assistant: NICOLE BOWERS ([phone])[address] IMMATURE GRANS % 0.4 % Normal 0.0-2.0 [facility] Comment on above: Performed By: #### L [id number] ####Medical Technician Assistant: NICOLE BOWERS ([phone])[address] IMMATURE GRANS ABSOLUTE 0.0 10*3/uL Normal <0.1 [facility] Comment on above: Performed By: #### L [id number] ####Medical Technician Assistant: NICOLE BOWERS ([phone])[facility])[address] [place] [address] Lymphocytes (Bld) [#/Vol] 2.0 10*3/uL Normal 1.0-4.3 [facility] Comment on above: Performed By: #### L [id number] ####Medical Technician Assistant: NICOLE BOWERS ([phone])[facility])[address] [place] [address] Lymphocytes/100 WBC (Bld) 25.9 % Normal 15.0-45.0 [facility] Comment on above: Performed By: #### L [id number] ####Medical Technician Assistant: NICLOE BOWERS ([phone])[facility])[address] [place] [address] MCH (RBC) [Entitic mass] 33.2 pg Normal 26.0-34.0 [facility] Comment on above: Performed By: #### L [id number] ####Medical Technician Assistant: NICOLE BOWERS ([phone])[facility])[address] [place] [address] MCHC 33.5 % Normal 30.5-36.0 [facility] Comment on above: Performed By: #### L [id number] ####Medical Technician Assistant: NICOLE BOWERS ([phone])[facility])[address] [place] [address] MCV (RBC) [Entitic vol] 99.1 fL High 77.0-99.0 [facility] Comment on above: Performed By: #### L [id number] ####Medical Technician Assistant: NICOLE BOWERS ([phone])[facility])[address] [place] [address] Monocytes (Bld) [#/Vol] 0.5 10*3/uL Normal 0.0-0.9 [facility] Comment on above: Performed By: #### L [id number] ####Medical Technician Assistant: NICOLE BOWERS ([phone])[facility])[address] [place] [address] Monocytes/100 WBC (Bld) 7.0 % Normal 5.0-13.0 [facility] Comment on above: Performed By: #### L [id number] ####Medical Technician Assistant: NICOLE BOWERS ([phone])[facility] ([facility])[address] [place] [address] NEUTROPHILS ABSOLUTE 4.9 10*3/uL Normal 1.8-7.5 [facility] Comment on above: Performed By: #### L [id number] ####Medical Technician Assistant: NICOLE BOWERS ([phone])[facility] ([facility])[address] [place] [address] Neutrophils/100 WBC (Bld) 65.4 % Normal 38.0-82.0 [facility] Comment on above: Performed By: #### L [id number] ####Medical Technician Assistant: NICOLE BOWERS ([phone])[facility] ([facility])[address] [place] [address] NRBC 0.0 /100 WBCs Normal 0.0-2.0 [facility] Comment on above: Performed By: #### L [id number] ####Medical Technician Assistant: NICOLE BOWERS ([phone])[facility] ([facility])[address] [place] [address] Platelet mean volume (Bld) [Entitic vol] 9.2 fL Normal 9.0-12.7 [facility] Comment on above: Performed By: #### L [id number] ####Medical Technician Assistant: NICOLE BOWERS ([phone])[facility] ([facility])[address] [place] [address] Platelets (Bld) [#/Vol] 280 10*3/uL Normal 140-440 [facility] Comment on above: Performed By: #### L [id number] ####Medical Technician Assistant: NICOLE BOWERS ([phone])[facility] ([facility])[address] [place] [address] RBC (Bld) [#/Vol] 4.25 10*6/uL Low 4.40-5.90 [facility] Comment on above: Performed By: #### L [id number] ####Medical Technician Assistant: NICOLE BOWERS ([phone])[facility])[address] [place] [address] WBC (Bld) [#/Vol] 7.5 10*3/uL Normal 3.6-10.7 [facility] Comment on above: Performed By: #### L [id number] ####Medical Technician Assistant: NICOLE BOWERS ([phone])[facility])[address] [place] [address] COMPREHENSIVE METABOLIC PANE Ming 08-19-2024 Albumin [Mass/Vol] 3.0 g/dL Low 3.5-5.0 [facility] Comment on above: Performed By: #### L [id number], [id number] ####Medical Technician Assistant: NICOLE BOWERS ([phone])[facility])[address] [place] [address] ALP [Catalytic activity/Vol] 191 U/L High 40-150 [facility] Comment on above: Performed By: #### L AB17, [id number] ####Medical Technician Assistant: NICOLE BOWERS ([phone])[facility])[address] [place] [address] ALT [Catalytic activity/Vol] 54 U/L High <40 [facility] Comment on above: Performed By: #### L AB17, [id number] ####Medical Technician Assistant: NICOLE BOWERS ([phone])[facility] [facility])[address] [place] [address] Anion gap [Moles/Vol] 12 mmol/L Normal 3-13 [facility] Comment on above: Performed By: #### L AB17, [id number] ####Medical Technician Assistant: NICOLE BOWERS ([phone])[facility])[address] [place] [address] AST [Catalytic activity/Vol] 33 U/L Normal <34 [facility] Comment on above: Performed By: #### L AB17, [id number] ####Medical Technician Assistant: NICOLE BOWERS ([phone])[facility] ([facility])[address] [place] [address] [place] Bilirubin [Mass/Vol] 1.6 mg/dL High <1.2 [facility] Comment on above: Performed By: #### L AB17, [id number] ####Medical Technician Assistant: NICOLE BOWERS ([phone])[facility] ([facility])[address] [place] [address] Calcium [Mass/Vol] 7.9 mg/dL Low 8.4-10.2 [facility] Comment on above: Performed By: #### L [id number], [id number] ####Medical Technician Assistant: NICOLE BOWERS ([phone])[facility] ([facility])[address] [place] [address] Chloride [Moles/Vol] 96 mmol/L Low 98-107 [facility] Comment on above: Performed By: #### L AB17, [id number] ####Medical Technician Assistant: NICOLE BOWERS ([phone])[facility] [place] [address] [place] CO2 [Moles/Vol] 28 mmol/L Normal 22-29 [facility] Comment on above: Performed By: #### L AB17, [id number] ####Medical Technician Assistant: NICOLE BOWERS ([phone])[facility] ([facility])[address] [place] [address] [place] Creatinine [Mass/Vol] 1.64 mg/dL High 0.72-1.25 [facility] Comment on above: Performed By: #### L AB17, [id number] ####Medical Technician Assistant: NICOLE BOWERS ([phone])[facility] ([facility])[address] [place] [address] [place] GLOMERULAR FILTRATION RATE ML/MIN/1.73 SQ M.PREDICTED 51.9 mL/min/1.73m*2 Low >60.0 [facility] Comment on above: Result Comment: Calc ulation based on the Chronic Kidney Disease Epidemiology Collaboration (CKD-EPI) equation refit without adjustment for race Performed By: #### L AB17, [id number] ####Medical Technician Assistant: NICOLE BOWERS ([phone])[facility] ([facility])[address] [place] [address] Glucose [Mass/Vol] 150 mg/dL High 74-100 [facility] Comment on above: Performed By: #### L AB17, [id number] ####Medical Technician Assistant: NICOLE BOWERS ([phone])[facility])[address] [place] [address] Potassium [Moles/Vol] 2.9 mmol/L Low 3.5-5.1 [facility] Comment on above: Result Comment: [facility] potassium values may be up to 0.5 mmol/L lower than serum values. Performed By: #### L AB17, [id number] ####Medical Technician Assistant: NICOLE BOWERS ([phone])[facility])[address] [place] [address] Protein [Mass/Vol] 6.2 g/dL Low 6.4-8.3 [facility] Comment on above: Performed By: #### L AB17, [id number] ####Medical Technician Assistant: NICOLE BOWERS ([phone])[facility] ([facility])[address] [place] [address] Sodium [Moles/Vol] 136 mmol/L Normal 136-145 [facility] Comment on above: Performed By: #### L AB17, [id number] ####Medical Technician Assistant: NICOLE BOWERS ([phone])[facility])[address] [place] [address] Urea nitrogen [Mass/Vol] 33 mg/dL High 8-21 [facility] Comment on above: Performed By: #### L AB17, [id number] ####Medical Technician Assistant: NICOLE BOWERS ([phone])[facility])[address] [place] [address] Comprehensive metabolic 1998 panelOrdered By: Dariel Staley on 08-19-2024 Albumin [Mass/Vol] 3 g/dL Low 3.5 - 5.0 g/dL [facility] ALP [Catalytic activity/Vol] 191 U/L High 40 - 150 U/L [facility] ALT [Catalytic activity/Vol] 54 U/L High NINF - 40 U/L [facility] Anion gap [Moles/Vol] 12 mmol/L 3 - 13 mmol/L [facility] AST [Catalytic activity/Vol] 33 U/L NINF - 34 U/L [facility] Bilirubin [Mass/Vol] 1.6 mg/dL High NINF - 1.2 mg/dL [facility] Calcium [Mass/Vol] 7.9 mg/dL Low 8.4 - 10. 2 mg/dL [facility] Chloride [Moles/Vol] 96 mmol/L Low 98 - 10 7 mmol/L [facility] CO2 [Moles/Vol] 28 mmol/L 22 - 29 mmol/L [facility] Creatinine [Mass/Vol] 1.64 mg/dL High 0.72 - 1.25 mg/dL [facility] GFR/1.73 sq M.predicted (S/P/Bld) [Vol rate/Area] 51.9 mL/min Low - PINF [facility] Glucose [Mass/Vol] 150 mg/dL High 74 - 100 mg/dL [facility] Interpretation and review of laboratory results Abnormal [facility] Potassium [Moles/Vol] 2.9 mmol/L Low 3.5 - 5.1 mmol/L [facility] Protein [Mass/Vol] 6.2 g/dL Low 6.4 - 8.3 g/dL [facility] Sodium [Moles/Vol] 136 mmol/L 136 - 145 mmol/L [facility] Urea nitrogen [Mass/Vol] 33 mg/dL High 8 - 21 mg/dL [facility] Laboratory - Chemistry and C hemistry - challengeon 08-19-2024 Magnesium [Mass/Vol] 1.4 mg/dL Low 1.6 - 2 .6 mg/dL [facility] MAGNESIUMon 08-19-2024 Magnesium [Mass/Vol] 1.4 mg/dL Low 1.6-2.6 [facility] Comment on above: Result Comment: ALEJANDRO R COMMENTS:Higher values can be expected in females during menses. Performed By: #### L AB17, [id number] ####Medical Technician Assistant: NICOLE BOWERS ([phone])[facility] ([facility] Magnesium [Mass/Vol]on 08-19 Interpretation and review of laboratory results Abnormal [facility] Progress Noteon 08-19-2024 Progress Note Normal [facility] Progress Note Normal [facility] Progress Note Normal [facility] Progress Note Normal [facility] 30on 08-18-2024 30 Normal [facility] [id number] 08-18-2024 [id number] Normal [facility] [phone] Per RN [facility] calls daily, no bed available. Nephrology and Cardiology following. Needs electrolytes replaced. Not willing to take all of it. Plan is home when stable, no needs. . Normal [facility] CALCIUM, IONIZEDon CALCIUM IONIZED 3.30 mg/dL Low 4.30-5.20 [facility] Comment on above: Performed By: #### L [id number] ####Medical Technician Assistant: NICOLE BOWERS ([phone])[facility] ([facility])[address] [place] [address] PH, IONIZED CALCIUM 7.60 High 7.31-7.46 [facility] Comment on above: Performed By: #### L [id number] ####Medical Technician Assistant: NICOLE BOWERS ([phone])[facility] ([facility])[address] [place] [address] CBC W Auto Differential pane l (Bld)on 08-18-2024 Basophils (Bld) [#/Vol] 0 10*3/uL 0.0 - 0.2 10*3/uL [facility] Basophils/100 WBC (Bld) 0.5 % 0.0 - 2.0 % [facility] Eosinophils (Bld) [#/Vol] 0.1 10*3/uL 0.0 - 0.5 10*3/uL [facility] Eosinophils/100 WBC (Bld) 0.9 % 0.0 - 6.0 % [facility] Erythrocyte distribution width (RBC) [Ratio] 12.8 % 11.5 - 15.0 % [facility] Hematocrit (Bld) [Volume fraction] 44.5 % 40.0 - 52.0 % [facility] Hemoglobin (Bld) [Mass/Vol] 14.7 g/dL 13.0 - 18.0 g/dL [facility] Immature granulocytes (Bld) [#/Vol] 0 10*3/uL NINF - 0.1 10*3/uL [facility] Immature granulocytes/100 WBC (Bld) 0.2 % 0.0 - 2.0 % [facility] Interpretation and review of laboratory results Abnormal [facility] Lymphocytes (Bld) [#/Vol] 2.8 10*3/uL 1.0 - 4.3 10*3/uL [facility] Lymphocytes/100 WBC (Bld) 32.6 % 15.0 - 45.0 % [facility] MCH (RBC) [Entitic mass] 33.6 pg 26.0 - 34.0 pg [facility] MCHC (RBC) [Mass/Vol] 33 % 30.5 - 36.0 % [facility] MCV (RBC) [Entitic vol] 101.8 fL High 77.0 - 99.0 fL [facility] Monocytes (Bld) [#/Vol] 0.7 10*3/uL 0.0 - 0.9 10*3/uL [facility] Monocytes/100 WBC (Bld) 7.8 % 5.0 - 13.0 % [facility] Neutrophils (Bld) [#/Vol] 4.9 10*3/uL 1.8 - 7.5 10*3/uL [facility] Neutrophils/100 WBC (Bld) 58 % 38.0 - 82.0 % [facility] Nucleated RBC/100 WBC (Bld) [Ratio] 0 % [facility] Platelet mean volume (Bld) [Entitic vol] 9.6 fL 9.0 - 12.7 fL [facility] Platelets (Bld) [#/Vol] 288 10*3/uL 140 - 440 10*3/uL [facility] RBC (Bld) [#/Vol] 4.37 10*6/uL Low 4.40 - 5.9 0 10*6/uL [facility] WBC (Bld) [#/Vol] 8.4 10*3/uL 3.6 - 10.7 10*3/uL [facility] CBC WITH AUTO DIFFERENTIALon 08-18-2024 Basophils (Bld) [#/Vol] 0.0 10*3/uL Normal 0.0-0.2 [facility] Comment on above: Performed By: #### L [id number] ####Medical Technician Assistant: NICOLE BOWERS ([phone])[facility] ([facility])[address] [place] [address] [place] Basophils/100 WBC (Bld) 0.5 % Normal 0.0-2.0 [facility] Comment on above: Performed By: #### L [id number] ####Medical Technician Assistant: NICOLE BOWERS ([phone])[facility] ([facility])[address] [place] [address] [place] Eosinophils (Bld) [#/Vol] 0.1 10*3/uL Normal 0.0-0.5 [facility] Comment on above: Performed By: #### L [id number] ####Medical Technician Assistant: NICOLE BOWERS ([phone])[facility] ([facility])[address] [place] [address] [place] Eosinophils/100 WBC (Bld) 0.9 % Normal 0.0-6.0 [facility] Comment on above: Performed By: #### L [id number] ####Medical Technician Assistant: NICOLE BOWERS ([phone])[facility])[address] [place] [address] Erythrocyte distribution width (RBC) [Ratio] 12.8 % Normal 11.5-15.0 [facility] Comment on above: Performed By: #### L [id number] ####Medical Technician Assistant: NICOLE BOWERS ([phone])[facility] ([facility])[address] [place] [address] Hematocrit (Bld) [Volume fraction] 44.5 % Normal 40.0-52.0 [facility] Comment on above: Performed By: #### L [id number] ####Medical Technician Assistant: NICOLE BOWERS ([phone])[facility])[address] [place] [address] [place] Hemoglobin (Bld) [Mass/Vol] 14.7 g/dL Normal 13.0-18.0 [facility] Comment on above: Performed By: #### L [id number] ####Medical Technician Assistant: NICOLE BOWERS ([phone])[facility])[address] [place] [address] IMMATURE GRANS % 0.2 % Normal 0.0-2.0 [facility] Comment on above: Performed By: #### L [id number] ####Medical Technician Assistant: NICOLE BOWERS ([phone])[facility])[address] [place] [address] IMMATURE GRANS ABSOLUTE 0.0 10*3/uL Normal <0.1 [facility] Comment on above: Performed By: #### L [id number] ####Medical Technician Assistant: NICOLE BOWERS ([phone])[address] Lymphocytes (Bld) [#/Vol] 2.8 10*3/uL Normal 1.0-4.3 [facility] Comment on above: Performed By: #### L [id number] ####Medical Technician Assistant: NICOLE BOWERS ([phone])[address] Lymphocytes/100 WBC (Bld) 32.6 % Normal 15.0-45.0 [facility] Comment on above: Performed By: #### L [id number] ####Medical Technician Assistant: NICOLE BOWERS ([phone])[address] MCH (RBC) [Entitic mass] 33.6 pg Normal 26.0-34.0 [facility] Comment on above: Performed By: #### L [id number] ####Medical Technician Assistant: NICOLE BOWERS ([phone])[facility])[address] [place] [address] MCHC 33.0 % Normal 30.5-36.0 [facility] Comment on above: Performed By: #### L [id number] ####Medical Technician Assistant: NICOLE BOWERS ([phone])[facility] ([facility])[address] [place] [address] MCV (RBC) [Entitic vol] 101.8 fL High 77.0-99.0 [facility] Comment on above: Performed By: #### L [id number] ####Medical Technician Assistant: NICOLE BOWERS ([phone])[facility] ([facility])[address] [place] [address] Monocytes (Bld) [#/Vol] 0.7 10*3/uL Normal 0.0-0.9 [facility] Comment on above: Performed By: #### L [id number] ####Medical Technician Assistant: NICOLE BOWERS ([phone])[facility] ([facility])[address] [place] [address] Monocytes/100 WBC (Bld) 7.8 % Normal 5.0-13.0 [facility] Comment on above: Performed By: #### L [id number] ####Medical Technician Assistant: NICOLE BOWERS ([phone])[facility] ([facility])[address] [place] [address] NEUTROPHILS ABSOLUTE 4.9 10*3/uL Normal 1.8-7.5 [facility] Comment on above: Performed By: #### L [id number] ####Medical Technician Assistant: NICOLE BOWERS ([phone])[facility] ([facility])[address] [place] [address] Neutrophils/100 WBC (Bld) 58.0 % Normal 38.0-82.0 [facility] Comment on above: Performed By: #### L [id number] ####Medical Technician Assistant: NICOLE BOWERS ([phone])[facility] ([facility])[address] [place] [address] NRBC 0.0 /100 WBCs Normal 0.0-2.0 [facility] Comment on above: Performed By: #### L [id number] ####Medical Technician Assistant: NICOLE BOWERS ([phone])[facility] ([facility])[address] [place] [address] Platelet mean volume (Bld) [Entitic vol] 9.6 fL Normal 9.0-12.7 [facility] Comment on above: Performed By: #### L [id number] ####Medical Technician Assistant: NICOLE BOWERS ([phone])[facility])[address] [place] [address] Platelets (Bld) [#/Vol] 288 10*3/uL Normal 140-440 [facility] Comment on above: Performed By: #### L [id number] ####Medical Technician Assistant: NICOLE BOWERS ([phone])[facility])[address] [place] [address] RBC (Bld) [#/Vol] 4.37 10*6/uL Low 4.40-5.90 [facility] Comment on above: Performed By: #### L [id number] ####Medical Technician Assistant: NICOLE BOWERS ([phone])[facility] ([facility])[address] [place] [address] WBC (Bld) [#/Vol] 8.4 10*3/uL Normal 3.6-10.7 [facility] Comment on above: Performed By: #### L [id number] ####Medical Technician Assistant: NICOLE BOWERS ([phone])[facility])[address] [place] [address] COMPREHENSIVE METABOLIC PANE Ming 08-18-2024 Albumin [Mass/Vol] 3.0 g/dL Low 3.5-5.0 [facility] Comment on above: Performed By: #### L [id number], [id number] ####Medical Technician Assistant: NICOLE BOWERS ([phone])[facility])[address] [place] [address] ALP [Catalytic activity/Vol] 195 U/L High 40-150 [facility] Comment on above: Performed By: #### L AB17, [id number] ####Medical Technician Assistant: NICOLE BOWERS ([phone])[facility])[address] [place] [address] [place] ALT [Catalytic activity/Vol] 56 U/L High <40 [facility] Comment on above: Performed By: #### L AB17, [id number] ####Medical Technician Assistant: NICOLE BOWERS ([phone])[facility] ([facility])[address] [place] [address] Anion gap [Moles/Vol] 13 mmol/L Normal 3-13 [facility] Comment on above: Performed By: #### L [id number], [id number] ####Medical Technician Assistant: NICOLE BOWERS ([phone])[facility] ([facility])[address] [place] [address] AST [Catalytic activity/Vol] 36 U/L High <34 [facility] Comment on above: Result Comment: TCPo tential interference from hemolysis Performed By: #### L AB17, [id number] ####Medical Technician Assistant: NICOLE BOWERS ([phone])[facility] ([facility])[address] [place] [address] Bilirubin [Mass/Vol] 1.6 mg/dL High <1.2 [facility] Comment on above: Performed By: #### L AB17, [id number] ####Medical Technician Assistant: NICOLE BOWERS ([phone])[facility] ([facility])[address] [place] [address] Calcium [Mass/Vol] 7.8 mg/dL Low 8.4-10.2 [facility] Comment on above: Performed By: #### L AB17, [id number] ####Medical Technician Assistant: NICOLE BOWERS ([phone])[facility] ([facility])[address] [place] [address] [place] Chloride [Moles/Vol] 99 mmol/L Normal 98-107 [facility] Comment on above: Performed By: #### L AB17, [id number] ####Medical Technician Assistant: NICOLE BOWERS ([phone])[facility])[address] [place] [address] [place] CO2 [Moles/Vol] 25 mmol/L Normal 22-29 [facility] Comment on above: Performed By: #### L AB17, [id number] ####Medical Technician Assistant: NICOLE BOWERS ([phone])[facility])[address] [place] [address] Creatinine [Mass/Vol] 1.64 mg/dL High 0.72-1.25 [facility] Comment on above: Performed By: #### L AB17, [id number] ####Medical Technician Assistant: NICOLE BOWERS ([phone])[facility])[address] [place] [address] GLOMERULAR FILTRATION RATE ML/MIN/1.73 SQ M.PREDICTED 51.9 mL/min/1.73m*2 Low >60.0 [facility] Comment on above: Result Comment: Calc ulation based on the Chronic Kidney Disease Epidemiology Collaboration (CKD-EPI) equation refit without adjustment for race Performed By: #### L AB17, [id number] ####Medical Technician Assistant: NICOLE BOWERS ([phone])[facility])[address] [place] [address] Glucose [Mass/Vol] 104 mg/dL High 74-100 [facility] Comment on above: Performed By: #### L AB17, [id number] ####Medical Technician Assistant: NICOLE BOWERS ([phone])[address] Potassium [Moles/Vol] 4.0 mmol/L Normal 3.5-5.1 [facility] Comment on above: Result Comment: [facility] potassium values may be up to 0.5 mmol/L lower than serum values. Performed By: #### L AB17, [id number] ####Medical Technician Assistant: NICOLE BOWERS ([phone])[facility])[address] [place] [address] Protein [Mass/Vol] 6.4 g/dL Normal 6.4-8.3 [facility] Comment on above: Performed By: #### L AB17, [id number] ####Medical Technician Assistant: NICOLE BOWERS ([phone])[facility])[address] [place] [address] Sodium [Moles/Vol] 137 mmol/L Normal 136-145 [facility] Comment on above: Performed By: #### L AB17, [id number] ####Medical Technician Assistant: NICOLE BOWERS ([phone])[facility] ([facility])[address] [place] [address] Urea nitrogen [Mass/Vol] 33 mg/dL High 8-21 [facility] Comment on above: Performed By: #### L AB17, [id number] ####Medical Technician Assistant: NICOLE BOWERS ([phone])[facility] ([facility])[address] [place] [address] Calcium.ionized [Moles/Vol]o n 08-18-2024 Calcium.ionized (Bld) [Moles/Vol] 3.3 mg/dL Low 4.30 - 5.20 mg/dL [facility] Interpretation and review of laboratory results Abnormal [facility] PH, IONIZED CALCIUM 7.6 High 7.31 - 7.46 [facility] Comprehensive metabolic 1998 panelon 08-18-2024 Albumin [Mass/Vol] 3 g/dL Low 3.5 - 5.0 g/dL [facility] ALP [Catalytic activity/Vol] 195 U/L High 40 - 150 U/L [facility] ALT [Catalytic activity/Vol] 56 U[facility] Anion gap [Moles/Vol] 13 mmol/L 3 - 13 mmol/L [facility] AST [Catalytic activity/Vol] 36 U/L High NINF - 34 U/L [facility] Bilirubin [Mass/Vol] 1.6 mg/dL High NINF - 1.2 mg/dL [facility] Calcium [Mass/Vol] 7.8 mg/dL Low 8.4 - 10. 2 mg/dL [facility] Chloride [Moles/Vol] 99 mmol/L 98 - 10 7 mmol/L [facility] CO2 [Moles/Vol] 25 mmol/L 22 - 29 mmol/L [facility] Creatinine [Mass/Vol] 1.64 mg/dL High 0.72 - 1.25 mg/dL [facility] GFR/1.73 sq M.predicted (S/P/Bld) [Vol rate/Area] 51.9 mL/min Low - PINF [facility] Glucose [Mass/Vol] 104 mg/dL High 74 - 100 mg/dL [facility] Interpretation and review of laboratory results Abnormal [facility] Potassium [Moles/Vol] 4 mmol/L 3.5 - 5.1 mmol/L [facility] Protein [Mass/Vol] 6.4 g/dL 6.4 - 8.3 g/dL [facility] Sodium [Moles/Vol] 137 mmol/L 136 - 145 mmol/L [facility] Urea nitrogen [Mass/Vol] 33 mg/dL High 8 - 21 mg/dL [facility] Laboratory - Chemistry and C hemistry - challengeon 08-18-2024 Magnesium [Mass/Vol] 1.7 mg/dL 1.6 - 2 .6 mg/dL [facility] MAGNESIUMon 08-18-2024 Magnesium [Mass/Vol] 1.7 mg/dL Normal 1.6-2.6 [facility] Comment on above: Result Comment: ALEJANDRO Aleman COMMENTS:Higher values can be expected in females during menses. Performed By: #### L AB17, [id number] ####Medical Technician Assistant: NICOLE BOWERS ([phone])[facility] ([address] Magnesium [Mass/Vol]on 08-18 Interpretation and review of laboratory results Normal [facility] No Panel Informationon 08-18 [facility] Nursing Noteon 08-18-2024 Nursing Note Normal [facility] Nursing Note Updated [facility] with patient vitals [facility] still does not have a bed [facility] will call when one is available Normal [facility] Nursing Note Patient refusing iv magnesium patient requesting shower ok per dr coppola for patient to take oral magnesium only and ok to shower Normal [facility] Progress Noteon 08-18-2024 Progress Note Normal [facility] Progress Note Normal [facility] Progress Note Normal [facility] 30on 08-17-2024 30 Normal [facility] 30 Normal [facility] 30 Normal [facility] [id number] 08-17-2024 [id number] Normal [facility] [id number] Normal [facility] CBC W Auto Differential pane l (Bld)on 08-17-2024 Basophils (Bld) [#/Vol] 0 10*3/uL 0.0 - 0.2 10*3/uL [facility] Basophils/100 WBC (Bld) 0.5 % 0.0 - 2.0 % [facility] [facility] Eosinophils (Bld) [#/Vol] 0.1 10*3/uL 0.0 - 0.5 10*3/uL [facility] Eosinophils/100 WBC (Bld) 1.2 % 0.0 - 6.0 % [facility] Erythrocyte distribution width (RBC) [Ratio] 13.2 % 11.5 - 15.0 % [facility] Hematocrit (Bld) [Volume fraction] 43.3 % 40.0 - 52.0 % [facility] Hemoglobin (Bld) [Mass/Vol] 14.3 g/dL 13.0 - 18.0 g/dL [facility] Immature granulocytes (Bld) [#/Vol] 0 10*3/uL NINF - 0.1 10*3/uL [facility] Immature granulocytes/100 WBC (Bld) 0.4 % 0.0 - 2.0 % [facility] Interpretation and review of laboratory results Abnormal [facility] Lymphocytes (Bld) [#/Vol] 2.4 10*3/uL 1.0 - 4.3 10*3/uL [facility] Lymphocytes/100 WBC (Bld) 32.3 % 15.0 - 45.0 % [facility] MCH (RBC) [Entitic mass] 33 pg 26.0 - 34.0 pg [facility] MCHC (RBC) [Mass/Vol] 33 % 30.5 - 36.0 % [facility] MCV (RBC) [Entitic vol] 100 fL High 77.0 - 99.0 fL [facility] Monocytes (Bld) [#/Vol] 0.7 10*3/uL 0.0 - 0.9 10*3/uL [facility] Monocytes/100 WBC (Bld) 8.8 % 5.0 - 13.0 % [facility] Neutrophils (Bld) [#/Vol] 4.2 10*3/uL 1.8 - 7.5 10*3/uL [facility] Neutrophils/100 WBC (Bld) 56.8 % 38.0 - 82.0 % [facility] Nucleated RBC/100 WBC (Bld) [Ratio] 0 % [facility] Platelet mean volume (Bld) [Entitic vol] 10.1 fL 9.0 - 12.7 fL [facility] Platelets (Bld) [#/Vol] 274 10*3/uL 140 - 440 10*3/uL [facility] RBC (Bld) [#/Vol] 4.33 10*6/uL Low 4.40 - 5.9 0 10*6/uL [facility] WBC (Bld) [#/Vol] 7.4 10*3/uL 3.6 - 10.7 10*3/uL [facility] CBC WITH AUTO DIFFERENTIALon 08-17-2024 Basophils (Bld) [#/Vol] 0.0 10*3/uL Normal 0.0-0.2 [facility] Comment on above: Performed By: #### L [id number] ####Medical Technician Assistant: NICOLE BOWERS ([phone])[facility])[address] [place] [address] Basophils/100 WBC (Bld) 0.5 % Normal 0.0-2.0 [facility] Comment on above: Performed By: #### L [id number] ####Medical Technician Assistant: NICOLE BOWERS ([phone])[facility])[address] [place] [address] Eosinophils (Bld) [#/Vol] 0.1 10*3/uL Normal 0.0-0.5 [facility] Comment on above: Performed By: #### L [id number] ####Medical Technician Assistant: NICOLE BOWERS ([phone])[facility])[address] [place] [address] Eosinophils/100 WBC (Bld) 1.2 % Normal 0.0-6.0 [facility] Comment on above: Performed By: #### L [id number] ####Medical Technician Assistant: NICOLE BOWERS ([phone])[facility])[address] [place] [address] Erythrocyte distribution width (RBC) [Ratio] 13.2 % Normal 11.5-15.0 [facility] Comment on above: Performed By: #### L [id number] ####Medical Technician Assistant: NICOLE BOWERS ([phone])[address] Hematocrit (Bld) [Volume fraction] 43.3 % Normal 40.0-52.0 [facility] Comment on above: Performed By: #### L [id number] ####Medical Technician Assistant: NICOLE BOWERS ([phone])[facility])[address] [place] [address] Hemoglobin (Bld) [Mass/Vol] 14.3 g/dL Normal 13.0-18.0 [facility] Comment on above: Performed By: #### L [id number] ####Medical Technician Assistant: NICOLE BOWERS ([phone])[address] IMMATURE GRANS % 0.4 % Normal 0.0-2.0 [facility] Comment on above: Performed By: #### L [id number] ####Medical Technician Assistant: NICOLE BOWERS ([phone])[facility])[address] [place] [address] IMMATURE GRANS ABSOLUTE 0.0 10*3/uL Normal <0.1 [facility] Comment on above: Performed By: #### L [id number] ####Medical Technician Assistant: NICOLE BOWERS ([phone])[facility])[address] [place] [address] Lymphocytes (Bld) [#/Vol] 2.4 10*3/uL Normal 1.0-4.3 [facility] Comment on above: Performed By: #### L [id number] ####Medical Technician Assistant: NICOLE BOWERS ([phone])[address] Lymphocytes/100 WBC (Bld) 32.3 % Normal 15.0-45.0 [facility] Comment on above: Performed By: #### L [id number] ####Medical Technician Assistant: NICOLE BOWERS ([phone])[facility])[address] [place] [address] MCH (RBC) [Entitic mass] 33.0 pg Normal 26.0-34.0 [facility] Comment on above: Performed By: #### L [id number] ####Medical Technician Assistant: NICOLE BOWERS ([phone])[facility])[address] [place] [address] MCHC 33.0 % Normal 30.5-36.0 [facility] Comment on above: Performed By: #### L [id number] ####Medical Technician Assistant: NICOLE BOWERS ([phone])[facility])[address] [place] [address] MCV (RBC) [Entitic vol] 100.0 fL High 77.0-99.0 [facility] Comment on above: Performed By: #### L [id number] ####Medical Technician Assistant: NICOLE BOWERS ([phone])[facility])[address] [place] [address] Monocytes (Bld) [#/Vol] 0.7 10*3/uL Normal 0.0-0.9 [facility] Comment on above: Performed By: #### L [id number] ####Medical Technician Assistant: NICOLE BOWERS ([phone])[facility])[address] [place] [address] Monocytes/100 WBC (Bld) 8.8 % Normal 5.0-13.0 [facility] Comment on above: Performed By: #### L [id number] ####Medical Technician Assistant: NICOLE BOWERS ([phone])[facility])[address] [place] [address] NEUTROPHILS ABSOLUTE 4.2 10*3/uL Normal 1.8-7.5 [facility] Comment on above: Performed By: #### L [id number] ####Medical Technician Assistant: NICOLE BOWERS ([phone])[facility])[address] [place] [address] Neutrophils/100 WBC (Bld) 56.8 % Normal 38.0-82.0 [facility] Comment on above: Performed By: #### L [id number] ####Medical Technician Assistant: NICOLE BOWERS ([phone])[facility] ([facility])[address] [place] [address] NRBC 0.0 /100 WBCs Normal 0.0-2.0 [facility] Comment on above: Performed By: #### L [id number] ####Medical Technician Assistant: NICOLE BOWERS ([phone])[facility] ([facility])[address] [place] [address] Platelet mean volume (Bld) [Entitic vol] 10.1 fL Normal 9.0-12.7 [facility] Comment on above: Performed By: #### L [id number] ####Medical Technician Assistant: NICOLE BOWERS ([phone])[facility] ([facility])[address] [place] [address] Platelets (Bld) [#/Vol] 274 10*3/uL Normal 140-440 [facility] Comment on above: Performed By: #### L [id number] ####Medical Technician Assistant: NICOLE BOWERS ([phone])[facility] ([facility])[address] [place] [address] RBC (Bld) [#/Vol] 4.33 10*6/uL Low 4.40-5.90 [facility] Comment on above: Performed By: #### L [id number] ####Medical Technician Assistant: NICOLE BOWERS ([phone])[facility] ([facility])[address] [place] [address] WBC (Bld) [#/Vol] 7.4 10*3/uL Normal 3.6-10.7 [facility] Comment on above: Performed By: #### L [id number] ####Medical Technician Assistant: NICOLE BOWERS ([phone])[facility] ([facility])[address] [place] [address] COMPREHENSIVE METABOLIC PANE Ming 08-17-2024 Albumin [Mass/Vol] 2.9 g/dL Low 3.5-5.0 [facility] Comment on above: Performed By: #### L [id number], [id number] ####Medical Technician Assistant: NICOLE BOWERS ([phone])[facility] ([facility])[address] [place] [address] ALP [Catalytic activity/Vol] 188 U/L High 40-150 [facility] Comment on above: Performed By: #### L [id number], [id number] ####Medical Technician Assistant: NICOLE BOWERS ([phone])[facility] ([facility])[address] [place] [address] ALT [Catalytic activity/Vol] 56 U/L High <40 [facility] Comment on above: Performed By: #### L [id number], [id number] ####Medical Technician Assistant: NICOLE BOWERS ([phone])[facility] ([facility])[address] [place] [address] Anion gap [Moles/Vol] 12 mmol/L Normal 3-13 [facility] Comment on above: Performed By: #### L [id number], [id number] ####Medical Technician Assistant: NICOLE BOWERS ([phone])[facility] ([facility])[address] [place] [address] AST [Catalytic activity/Vol] 30 U/L Normal <34 [facility] Comment on above: Performed By: #### L [id number], [id number] ####Medical Technician Assistant: NICOLE BOWERS ([phone])[facility] ([facility])[address] [place] [address] Bilirubin [Mass/Vol] 1.6 mg/dL High <1.2 [facility] Comment on above: Performed By: #### L [id number], [id number] ####Medical Technician Assistant: NICOLE BOWERS ([phone])[facility])[address] [place] [address] Calcium [Mass/Vol] 7.7 mg/dL Low 8.4-10.2 [facility] Comment on above: Performed By: #### L [id number], [id number] ####Medical Technician Assistant: NICOLE BOWERS ([phone])[facility] [place] [address] [place] Chloride [Moles/Vol] 97 mmol/L Low 98-107 [facility] Comment on above: Performed By: #### L [id number], [id number] ####Medical Technician Assistant: NICOLE BOWERS ([phone])[facility] ([facility])[address] [place] [address] [place] CO2 [Moles/Vol] 30 mmol/L High 22-29 [facility] Comment on above: Performed By: #### L [id number], [id number] ####Medical Technician Assistant: NICOLE BOWERS ([phone])[facility])[address] [place] [address] Creatinine [Mass/Vol] 1.53 mg/dL High 0.72-1.25 [facility] Comment on above: Performed By: #### L [id number], [id number] ####Medical Technician Assistant: NICOLE BOWERS ([phone])[facility] ([facility])[address] [place] [address] GLOMERULAR FILTRATION RATE ML/MIN/1.73 SQ M.PREDICTED 56.4 mL/min/1.73m*2 Low >60.0 [facility] Comment on above: Result Comment: Calc ulation based on the Chronic Kidney Disease Epidemiology Collaboration (CKD-EPI) equation refit without adjustment for race Performed By: #### L [id number], [id number] ####Medical Technician Assistant: NICOLE BOWERS ([phone])[facility] ([facility])[address] [place] [address] Glucose [Mass/Vol] 102 mg/dL High 74-100 [facility] Comment on above: Performed By: #### L [id number], [id number] ####Medical Technician Assistant: NICOLE BOWERS ([phone])[facility])[address] [place] [address] Potassium [Moles/Vol] 3.3 mmol/L Low 3.5-5.1 [facility] Comment on above: Result Comment: [facility] potassium values may be up to 0.5 mmol/L lower than serum values. Performed By: #### L AB17, [id number] ####Medical Technician Assistant: NICOLE BOWERS ([phone])[facility])[address] [place] [address] Protein [Mass/Vol] 5.8 g/dL Low 6.4-8.3 [facility] Comment on above: Performed By: #### L [id number], [id number] ####Medical Technician Assistant: NICOLE BOWERS ([phone])[facility] ([facility])[address] [place] [address] Sodium [Moles/Vol] 139 mmol/L Normal 136-145 [facility] Comment on above: Performed By: #### L [id number], [id number] ####Medical Technician Assistant: NICOLE BOWERS ([phone])[facility] ([facility])[address] [place] [address] Urea nitrogen [Mass/Vol] 32 mg/dL High 8-21 [facility] Comment on above: Performed By: #### L AB17, [id number] ####Medical Technician Assistant: NICOLE BOWERS ([phone])[facility] ([facility])[address] [place] [address] Comprehensive metabolic 1998 panelon 08-17-2024 Albumin [Mass/Vol] 2.9 g/dL Low 3.5 - 5.0 g/dL [facility] ALP [Catalytic activity/Vol] 188 U/L High 40 - 150 U/L [facility] ALT [Catalytic activity/Vol] 56 U/L High NINF - 40 U/L [facility] Anion gap [Moles/Vol] 12 mmol/L 3 - 13 mmol/L [facility] AST [Catalytic activity/Vol] 30 U/L NINF - 34 U/L [facility] Bilirubin [Mass/Vol] 1.6 mg/dL High NINF - 1.2 mg/dL [facility] Calcium [Mass/Vol] 7.7 mg/dL Low 8.4 - 10. 2 mg/dL [facility] Chloride [Moles/Vol] 97 mmol/L Low 98 - 10 7 mmol/L [facility] CO2 [Moles/Vol] 30 mmol/L High 22 - 29 mmol/L [facility] Creatinine [Mass/Vol] 1.53 mg/dL High 0.72 - 1.25 mg/dL [facility] GFR/1.73 sq M.predicted (S/P/Bld) [Vol rate/Area] 56.4 mL/min Low - PINF [facility] Glucose [Mass/Vol] 102 mg/dL High 74 - 100 mg/dL [facility] Interpretation and review of laboratory results Abnormal [facility] Potassium [Moles/Vol] 3.3 mmol/L Low 3.5 - 5.1 mmol/L [facility] Protein [Mass/Vol] 5.8 g/dL Low 6.4 - 8.3 g/dL [facility] Sodium [Moles/Vol] 139 mmol/L 136 - 145 mmol/L [facility] Urea nitrogen [Mass/Vol] 32 mg/dL High 8 - 21 mg/dL [facility] Laboratory - Chemistry and C hemistry - challengeon 08-17-2024 Magnesium [Mass/Vol] 1.3 mg/dL Low 1.6 - 2 .6 mg/dL [facility] MAGNESIUMon 08-17-2024 Magnesium [Mass/Vol] 1.3 mg/dL Low 1.6-2.6 [facility] Comment on above: Result Comment: ALEJANDRO Aleman COMMENTS:Higher values can be expected in females during menses. Performed By: #### L [id number], [id number] ####Medical Technician Assistant: NICOLE BOWERS ([phone])[address] Magnesium [Mass/Vol]on 08-17 Interpretation and review of laboratory results Abnormal [facility] Nursing Noteon 08-17-2024 Nursing Note Normal [facility] Nursing Note Normal [facility] Nursing Note RN notified Dr. Asa vasquez of potassium 3.3 and mag 1.3. waiting for repletion orders. Pt refusing mag IV bolus. RN messaged Dr. Samuel asking for oral option instead. Pt refusing potassium until after he eats his breakfast. Normal [facility] Progress Noteon 08-17-2024 Progress Note Normal [facility] Progress Note Normal [facility] Progress Note Normal [facility] 30on 08-16-2024 30 Normal [facility] CBC W Auto Differential pane l (Bld)on 08-16-2024 Basophils (Bld) [#/Vol] 0 10*3/uL 0.0 - 0.2 10*3/uL [facility] Basophils/100 WBC (Bld) 0.5 % 0.0 - 2.0 % [facility] Eosinophils (Bld) [#/Vol] 0 10*3/uL 0.0 - 0.5 10*3/uL [facility] Eosinophils/100 WBC (Bld) 0.6 % 0.0 - 6.0 % [facility] Erythrocyte distribution width (RBC) [Ratio] 13.2 % 11.5 - 15.0 % [facility] Hematocrit (Bld) [Volume fraction] 39.6 % Low 40.0 - 52.0 % [facility] Hemoglobin (Bld) [Mass/Vol] 13.2 g/dL 13.0 - 18.0 g/dL [facility] Immature granulocytes (Bld) [#/Vol] 0 10*3/uL NINF - 0.1 10*3/uL [facility] Immature granulocytes/100 WBC (Bld) 0.5 % 0.0 - 2.0 % [facility] Interpretation and review of laboratory results Abnormal [facility] Lymphocytes (Bld) [#/Vol] 1.7 10*3/uL 1.0 - 4.3 10*3/uL [facility] Lymphocytes/100 WBC (Bld) 27.2 % 15.0 - 45.0 % [facility] MCH (RBC) [Entitic mass] 33.4 pg 26.0 - 34.0 pg [facility] MCHC (RBC) [Mass/Vol] 33.3 % 30.5 - 36.0 % [facility] MCV (RBC) [Entitic vol] 100.3 fL High 77.0 - 99.0 fL [facility] Monocytes (Bld) [#/Vol] 0.4 10*3/uL 0.0 - 0.9 10*3/uL [facility] Monocytes/100 WBC (Bld) 5.8 % 5.0 - 13.0 % [facility] Neutrophils (Bld) [#/Vol] 4 10*3/uL 1.8 - 7.5 10*3/uL [facility] Neutrophils/100 WBC (Bld) 65.4 % 38.0 - 82.0 % [facility] Nucleated RBC/100 WBC (Bld) [Ratio] 0 % [facility] Platelet mean volume (Bld) [Entitic vol] 9.7 fL 9.0 - 12.7 fL [facility] Platelets (Bld) [#/Vol] 242 10*3/uL 140 - 440 10*3/uL [facility] RBC (Bld) [#/Vol] 3.95 10*6/uL Low 4.40 - 5.9 0 10*6/uL [facility] WBC (Bld) [#/Vol] 6.2 10*3/uL 3.6 - 10.7 10*3/uL [facility] CBC WITH AUTO DIFFERENTIALon 08-16-2024 Basophils (Bld) [#/Vol] 0.0 10*3/uL Normal 0.0-0.2 [facility] Comment on above: Performed By: #### L [id number] ####Medical Technician Assistant: NICOLE BOWERS ([phone])[facility])[address] [place] [address] Basophils/100 WBC (Bld) 0.5 % Normal 0.0-2.0 [facility] Comment on above: Performed By: #### L [id number] ####Medical Technician Assistant: NICOLE BOWERS ([phone])[facility])[address] [place] [address] [place] Eosinophils (Bld) [#/Vol] 0.0 10*3/uL Normal 0.0-0.5 [facility] Comment on above: Performed By: #### L [id number] ####Medical Technician Assistant: NICOLE BOWERS ([phone])[facility])[address] [place] [address] [place] Eosinophils/100 WBC (Bld) 0.6 % Normal 0.0-6.0 [facility] Comment on above: Performed By: #### L [id number] ####Medical Technician Assistant: NICOLE BOWERS ([phone])[facility])[address] [place] [address] Erythrocyte distribution width (RBC) [Ratio] 13.2 % Normal 11.5-15.0 [facility] Comment on above: Performed By: #### L [id number] ####Medical Technician Assistant: NICOLE BOWERS ([phone])[facility])[address] [place] [address] Hematocrit (Bld) [Volume fraction] 39.6 % Low 40.0-52.0 [facility] Comment on above: Performed By: #### L [id number] ####Medical Technician Assistant: NICOLE BOWERS ([phone])[facility])[address] [place] [address] Hemoglobin (Bld) [Mass/Vol] 13.2 g/dL Normal 13.0-18.0 [facility] Comment on above: Performed By: #### L [id number] ####Medical Technician Assistant: NICOLE BOWERS ([phone])[facility])[address] [place] [address] IMMATURE GRANS % 0.5 % Normal 0.0-2.0 [facility] Comment on above: Performed By: #### L [id number] ####Medical Technician Assistant: NICOLE BOWERS ([phone])[facility])[address] [place] [address] IMMATURE GRANS ABSOLUTE 0.0 10*3/uL Normal <0.1 [facility] Comment on above: Performed By: #### L [id number] ####Medical Technician Assistant: NICOLE BOWERS ([phone])[facility])[address] [place] [address] Lymphocytes (Bld) [#/Vol] 1.7 10*3/uL Normal 1.0-4.3 [facility] Comment on above: Performed By: #### L [id number] ####Medical Technician Assistant: NICOLE BOWERS ([phone])[facility])[address] [place] [address] Lymphocytes/100 WBC (Bld) 27.2 % Normal 15.0-45.0 [facility] Comment on above: Performed By: #### L [id number] ####Medical Technician Assistant: NICOLE BOWERS ([phone])[facility])[address] [place] [address] MCH (RBC) [Entitic mass] 33.4 pg Normal 26.0-34.0 [facility] Comment on above: Performed By: #### L [id number] ####Medical Technician Assistant: NICOLE BOWERS ([phone])[facility])[address] [place] [address] MCHC 33.3 % Normal 30.5-36.0 [facility] Comment on above: Performed By: #### L [id number] ####Medical Technician Assistant: NICOLE BOWERS ([phone])[facility])[address] [place] [address] MCV (RBC) [Entitic vol] 100.3 fL High 77.0-99.0 [facility] Comment on above: Performed By: #### L [id number] ####Medical Technician Assistant: NICOLE BOWERS ([phone])[facility])[address] [place] [address] Monocytes (Bld) [#/Vol] 0.4 10*3/uL Normal 0.0-0.9 [facility] Comment on above: Performed By: #### L [id number] ####Medical Technician Assistant: NICOLE BOWERS ([phone])[facility])[address] [place] [address] Monocytes/100 WBC (Bld) 5.8 % Normal 5.0-13.0 [facility] Comment on above: Performed By: #### L [id number] ####Medical Technician Assistant: NICOLE BOWERS ([phone])[facility])[address] [place] [address] NEUTROPHILS ABSOLUTE 4.0 10*3/uL Normal 1.8-7.5 [facility] Comment on above: Performed By: #### L [id number] ####Medical Technician Assistant: NICOLE BOWERS ([phone])[facility] [place] [address] Neutrophils/100 WBC (Bld) 65.4 % Normal 38.0-82.0 [facility] Comment on above: Performed By: #### L [id number] ####Medical Technician Assistant: NICOLE BOWERS ([phone])[facility] ([facility])[address] [place] [address] NRBC 0.0 /100 WBCs Normal 0.0-2.0 [facility] Comment on above: Performed By: #### L [id number] ####Medical Technician Assistant: NICOLE BOWERS ([phone])[facility] ([facility])[address] [place] [address] Platelet mean volume (Bld) [Entitic vol] 9.7 fL Normal 9.0-12.7 [facility] Comment on above: Performed By: #### L [id number] ####Medical Technician Assistant: NICOLE BOWERS ([phone])[facility] ([facility])[address] [place] [address] Platelets (Bld) [#/Vol] 242 10*3/uL Normal 140-440 [facility] Comment on above: Performed By: #### L [id number] ####Medical Technician Assistant: NICOLE BOWERS ([phone])[facility] ([facility])[address] [place] [address] RBC (Bld) [#/Vol] 3.95 10*6/uL Low 4.40-5.90 [facility] Comment on above: Performed By: #### L [id number] ####Medical Technician Assistant: NICOLE BOWERS ([phone])[facility] ([facility])[address] [place] [address] [place] WBC (Bld) [#/Vol] 6.2 10*3/uL Normal 3.6-10.7 [facility] Comment on above: Performed By: #### L [id number] ####Medical Technician Assistant: NICOLE BOWERS ([phone])[facility] ([facility])[address] [place] [address] COMPREHENSIVE METABOLIC PANE Ming 08-16-2024 Albumin [Mass/Vol] 2.9 g/dL Low 3.5-5.0 [facility] Comment on above: Performed By: #### L [id number] ####Medical Technician Assistant: NICOLE BOWERS ([phone])[facility] ([facility])[address] [place] [address] ALP [Catalytic activity/Vol] 193 U/L High 40-150 [facility] Comment on above: Performed By: #### L [id number] ####Medical Technician Assistant: NICOLE BOWERS ([phone])[facility] ([facility])[address] [place] [address] ALT [Catalytic activity/Vol] 64 U/L High <40 [facility] Comment on above: Performed By: #### L [id number] ####Medical Technician Assistant: NICOLE BOWERS ([phone])[facility] ([facility])[address] [place] [address] Anion gap [Moles/Vol] 14 mmol/L High 3-13 [facility] Comment on above: Performed By: #### L [id number] ####Medical Technician Assistant: NICOLE BOWERS ([phone])[facility])[address] [place] [address] AST [Catalytic activity/Vol] 35 U/L High <34 [facility] Comment on above: Performed By: #### L [id number] ####Medical Technician Assistant: NICOLE BOWERS ([phone])[facility])[address] [place] [address] Bilirubin [Mass/Vol] 1.8 mg/dL High <1.2 [facility] Comment on above: Performed By: #### L [id number] ####Medical Technician Assistant: NICOLE BOWERS ([phone])[facility])[address] [place] [address] Calcium [Mass/Vol] 7.8 mg/dL Low 8.4-10.2 [facility] Comment on above: Performed By: #### L [id number] ####Medical Technician Assistant: NICOLE BOWERS ([phone])[facility] ([facility])[address] [place] [address] Chloride [Moles/Vol] 100 mmol/L Normal 98-107 [facility] Comment on above: Performed By: #### L [id number] ####Medical Technician Assistant: NICOLE BOWERS ([phone])[facility] ([facility])[address] [place] [address] CO2 [Moles/Vol] 27 mmol/L Normal 22-29 [facility] Comment on above: Performed By: #### L [id number] ####Medical Technician Assistant: NICOLE BOWERS ([phone])[facility])[address] [place] [address] Creatinine [Mass/Vol] 1.81 mg/dL High 0.72-1.25 [facility] Comment on above: Performed By: #### L [id number] ####Medical Technician Assistant: NICOLE BOWERS ([phone])[facility] ([facility])[address] [place] [address] GLOMERULAR FILTRATION RATE ML/MIN/1.73 SQ M.PREDICTED 46.1 mL/min/1.73m*2 Low >60.0 [facility] Comment on above: Result Comment: Calc ulation based on the Chronic Kidney Disease Epidemiology Collaboration (CKD-EPI) equation refit without adjustment for race Performed By: #### L [id number] ####Medical Technician Assistant: NICOLE BOWERS ([phone])[facility] ([facility])[address] [place] [address] Glucose [Mass/Vol] 190 mg/dL High 74-100 [facility] Comment on above: Performed By: #### L [id number] ####Medical Technician Assistant: NICOLE BOWERS ([phone])[facility])[address] [place] [address] Potassium [Moles/Vol] 3.2 mmol/L Low 3.5-5.1 [facility] Comment on above: Result Comment: [facility] potassium values may be up to 0.5 mmol/L lower than serum values. Performed By: #### L [id number] ####Medical Technician Assistant: NICOLE BOWERS ([phone])[facility] ([facility])[address] [place] [address] Protein [Mass/Vol] 5.6 g/dL Low 6.4-8.3 [facility] Comment on above: Performed By: #### L [id number] ####Medical Technician Assistant: NICOLE BOWERS ([phone])[facility] ([facility])[address] [place] [address] Sodium [Moles/Vol] 141 mmol/L Normal 136-145 [facility] Comment on above: Performed By: #### L [id number] ####Medical Technician Assistant: NICOLE BOWERS ([phone])[facility] ([facility])[address] [place] [address] Urea nitrogen [Mass/Vol] 33 mg/dL High 8-21 [facility] Comment on above: Performed By: #### L [id number] ####Medical Technician Assistant: NICOLE BOWERS ([phone])[facility] ([facility])[address] [place] [address] Comprehensive metabolic 1998 panelon 08-16-2024 Albumin [Mass/Vol] 2.9 g/dL Low 3.5 - 5.0 g/dL [facility] ALP [Catalytic activity/Vol] 193 U/L High 40 - 150 U/L [facility] ALT [Catalytic activity/Vol] 64 U/L High NINF - 40 U/L [facility] Anion gap [Moles/Vol] 14 mmol/L High 3 - 13 mmol/L [facility] AST [Catalytic activity/Vol] 35 U/L High NINF - 34 U/L [facility] Bilirubin [Mass/Vol] 1.8 mg/dL High NINF - 1.2 mg/dL [facility] Calcium [Mass/Vol] 7.8 mg/dL Low 8.4 - 10. 2 mg/dL [facility] Chloride [Moles/Vol] 100 mmol/L 98 - 10 7 mmol/L [facility] CO2 [Moles/Vol] 27 mmol/L 22 - 29 mmol/L [facility] Creatinine [Mass/Vol] 1.81 mg/dL High 0.72 - 1.25 mg/dL [facility] GFR/1.73 sq M.predicted (S/P/Bld) [Vol rate/Area] 46.1 mL/min Low - PINF [facility] Glucose [Mass/Vol] 190 mg/dL High 74 - 100 mg/dL [facility] Interpretation and review of laboratory results Abnormal [facility] Potassium [Moles/Vol] 3.2 mmol/L Low 3.5 - 5.1 mmol/L [facility] Protein [Mass/Vol] 5.6 g/dL Low 6.4 - 8.3 g/dL [facility] Sodium [Moles/Vol] 141 mmol/L 136 - 145 mmol/L [facility] Urea nitrogen [Mass/Vol] 33 mg/dL High 8 - 21 mg/dL [facility] Nursing Noteon 08-16-2024 Nursing Note RN notified Dr. Peterson of 17 beat run of [facility]. Pt asymptomatic. Mag level added to morning labs. Normal [facility] Progress Noteon 08-16-2024 Progress Note Normal [facility] Progress Note Normal [facility] Progress Note Normal [facility] 30on 08-15-2024 30 Normal [facility] 30 Normal [facility] CBC W Auto Differential pane l (Bld)on 08-15-2024 Basophils (Bld) [#/Vol] 0 10*3/uL 0.0 - 0.2 10*3/uL [facility] Basophils/100 WBC (Bld) 0.4 % 0.0 - 2.0 % [facility] Eosinophils (Bld) [#/Vol] 0.1 10*3/uL 0.0 - 0.5 10*3/uL [facility] Eosinophils/100 WBC (Bld) 0.7 % 0.0 - 6.0 % [facility] Erythrocyte distribution width (RBC) [Ratio] 13.3 % 11.5 - 15.0 % [facility] Hematocrit (Bld) [Volume fraction] 43.5 % 40.0 - 52.0 % [facility] Hemoglobin (Bld) [Mass/Vol] 14.7 g/dL 13.0 - 18.0 g/dL [facility] Immature granulocytes (Bld) [#/Vol] 0 10*3/uL NINF - 0.1 10*3/uL [facility] Immature granulocytes/100 WBC (Bld) 0.2 % 0.0 - 2.0 % [facility] Interpretation and review of laboratory results Abnormal [facility] Lymphocytes (Bld) [#/Vol] 3.6 10*3/uL 1.0 - 4.3 10*3/uL [facility] Lymphocytes/100 WBC (Bld) 43.9 % 15.0 - 45.0 % [facility] MCH (RBC) [Entitic mass] 33.6 pg 26.0 - 34.0 pg [facility] MCHC (RBC) [Mass/Vol] 33.8 % 30.5 - 36.0 % [facility] MCV (RBC) [Entitic vol] 99.3 fL High 77.0 - 99.0 fL [facility] Monocytes (Bld) [#/Vol] 0.7 10*3/uL 0.0 - 0.9 10*3/uL [facility] Monocytes/100 WBC (Bld) 8.6 % 5.0 - 13.0 % [facility] Neutrophils (Bld) [#/Vol] 3.7 10*3/uL 1.8 - 7.5 10*3/uL [facility] Neutrophils/100 WBC (Bld) 46.2 % 38.0 - 82.0 % [facility] Nucleated RBC/100 WBC (Bld) [Ratio] 0 % [facility] Platelet mean volume (Bld) [Entitic vol] 10.2 fL 9.0 - 12.7 fL [facility] Platelets (Bld) [#/Vol] 258 10*3/uL 140 - 440 10*3/uL [facility] RBC (Bld) [#/Vol] 4.38 10*6/uL Low 4.40 - 5.9 0 10*6/uL [facility] WBC (Bld) [#/Vol] 8.1 10*3/uL 3.6 - 10.7 10*3/uL [facility] CBC WITH AUTO DIFFERENTIALon 08-15-2024 Basophils (Bld) [#/Vol] 0.0 10*3/uL Normal 0.0-0.2 [facility] Comment on above: Performed By: #### L [id number] ####Medical Technician Assistant: NICOLE BOWERS ([phone])[facility])[address] [place] [address] Basophils/100 WBC (Bld) 0.4 % Normal 0.0-2.0 [facility] Comment on above: Performed By: #### L [id number] ####Medical Technician Assistant: NICOLE BOWERS ([phone])[facility])[address] [place] [address] Eosinophils (Bld) [#/Vol] 0.1 10*3/uL Normal 0.0-0.5 [facility] Comment on above: Performed By: #### L [id number] ####Medical Technician Assistant: NICOLE BOWERS ([phone])[facility])[address] [place] [address] Eosinophils/100 WBC (Bld) 0.7 % Normal 0.0-6.0 [facility] Comment on above: Performed By: #### L [id number] ####Medical Technician Assistant: NICOLE BOWERS ([phone])[facility])[address] [place] [address] Erythrocyte distribution width (RBC) [Ratio] 13.3 % Normal 11.5-15.0 [facility] Comment on above: Performed By: #### L [id number] ####Medical Technician Assistant: NICOLE BOWERS ([phone])[facility])[address] [place] [address] Hematocrit (Bld) [Volume fraction] 43.5 % Normal 40.0-52.0 [facility] Comment on above: Performed By: #### L [id number] ####Medical Technician Assistant: NICOLE BOWERS ([phone])[facility])[address] [place] [address] Hemoglobin (Bld) [Mass/Vol] 14.7 g/dL Normal 13.0-18.0 [facility] Comment on above: Performed By: #### L [id number] ####Medical Technician Assistant: NICOLE BOWERS ([phone])[facility])[address] [place] [address] IMMATURE GRANS % 0.2 % Normal 0.0-2.0 [facility] Comment on above: Performed By: #### L [id number] ####Medical Technician Assistant: NICOLE BOWERS ([phone])[facility])[address] [place] [address] IMMATURE GRANS ABSOLUTE 0.0 10*3/uL Normal <0.1 [facility] Comment on above: Performed By: #### L [id number] ####Medical Technician Assistant: NICOLE BOWERS ([phone])[facility])[address] [place] [address] Lymphocytes (Bld) [#/Vol] 3.6 10*3/uL Normal 1.0-4.3 [facility] Comment on above: Performed By: #### L [id number] ####Medical Technician Assistant: NICOLE BOWRES ([phone])[facility])[address] [place] [address] Lymphocytes/100 WBC (Bld) 43.9 % Normal 15.0-45.0 [facility] Comment on above: Performed By: #### L [id number] ####Medical Technician Assistant: NICOLE BOWERS ([phone])[facility])[address] [place] [address] MCH (RBC) [Entitic mass] 33.6 pg Normal 26.0-34.0 [facility] Comment on above: Performed By: #### L [id number] ####Medical Technician Assistant: NICOLE BOWERS ([phone])[facility])[address] [place] [address] MCHC 33.8 % Normal 30.5-36.0 [facility] Comment on above: Performed By: #### L [id number] ####Medical Technician Assistant: NICOLE BOWERS ([phone])[facility])[address] [place] [address] MCV (RBC) [Entitic vol] 99.3 fL High 77.0-99.0 [facility] Comment on above: Performed By: #### L [id number] ####Medical Technician Assistant: NICOLE BOWERS ([phone])[facility] ([facility])[address] [place] [address] Monocytes (Bld) [#/Vol] 0.7 10*3/uL Normal 0.0-0.9 [facility] Comment on above: Performed By: #### L [id number] ####Medical Technician Assistant: NICOLE BOWERS ([phone])[facility] ([facility])[address] [place] [address] Monocytes/100 WBC (Bld) 8.6 % Normal 5.0-13.0 [facility] Comment on above: Performed By: #### L [id number] ####Medical Technician Assistant: NICOLE BOWERS ([phone])[facility] ([facility])[address] [place] [address] NEUTROPHILS ABSOLUTE 3.7 10*3/uL Normal 1.8-7.5 [facility] Comment on above: Performed By: #### L [id number] ####Medical Technician Assistant: NICOLE BOWERS ([phone])[facility] ([facility])[address] [place] [address] Neutrophils/100 WBC (Bld) 46.2 % Normal 38.0-82.0 [facility] Comment on above: Performed By: #### L [id number] ####Medical Technician Assistant: NICOLE BOWERS ([phone])[facility] ([facility])[address] [place] [address] NRBC 0.0 /100 WBCs Normal 0.0-2.0 [facility] Comment on above: Performed By: #### L [id number] ####Medical Technician Assistant: NICOLE BOWERS ([phone])[facility] ([facility])[address] [place] [address] Platelet mean volume (Bld) [Entitic vol] 10.2 fL Normal 9.0-12.7 [facility] Comment on above: Performed By: #### L [id number] ####Medical Technician Assistant: NICOLE BOWERS ([phone])[facility])[address] [place] [address] Platelets (Bld) [#/Vol] 258 10*3/uL Normal 140-440 [facility] Comment on above: Performed By: #### L [id number] ####Medical Technician Assistant: NICOLE BOWERS ([phone])[facility])[address] [place] [address] RBC (Bld) [#/Vol] 4.38 10*6/uL Low 4.40-5.90 [facility] Comment on above: Performed By: #### L [id number] ####Medical Technician Assistant: NICOLE BOWERS ([phone])[facility])[address] [place] [address] WBC (Bld) [#/Vol] 8.1 10*3/uL Normal 3.6-10.7 [facility] Comment on above: Performed By: #### L [id number] ####Medical Technician Assistant: NICOLE BOWERS ([phone])[facility])[address] [place] [address] COMPREHENSIVE METABOLIC PANE Ming 08-15-2024 Albumin [Mass/Vol] 3.1 g/dL Low 3.5-5.0 [facility] Comment on above: Performed By: #### L [id number] ####Medical Technician Assistant: NICOLE BOWERS ([phone])[facility])[address] [place] [address] ALP [Catalytic activity/Vol] 223 U/L High 40-150 [facility] Comment on above: Performed By: #### L [id number] ####Medical Technician Assistant: NICOLE BOWERS ([phone])[facility])[address] [place] [address] ALT [Catalytic activity/Vol] 69 U/L High <40 [facility] Comment on above: Performed By: #### L [id number] ####Medical Technician Assistant: NICOLE BOWERS ([phone])[facility])[address] [place] [address] [place] Anion gap [Moles/Vol] 11 mmol/L Normal 3-13 [facility] Comment on above: Performed By: #### L [id number] ####Medical Technician Assistant: NICOLE BOWERS ([phone])[facility] ([facility])[address] [place] [address] AST [Catalytic activity/Vol] 32 U/L Normal <34 [facility] Comment on above: Performed By: #### L [id number] ####Medical Technician Assistant: NICOLE BOWERS ([phone])[facility] ([facility])[address] [place] [address] Bilirubin [Mass/Vol] 1.9 mg/dL High <1.2 [facility] Comment on above: Performed By: #### L [id number] ####Medical Technician Assistant: NICOLE BOWERS ([phone])[facility] ([facility])[address] [place] [address] Calcium [Mass/Vol] 8.3 mg/dL Low 8.4-10.2 [facility] Comment on above: Performed By: #### L [id number] ####Medical Technician Assistant: NIOCLE BOWERS ([phone])[facility] ([facility] [place] [address] [place] Chloride [Moles/Vol] 102 mmol/L Normal 98-107 [facility] Comment on above: Performed By: #### L [id number] ####Medical Technician Assistant: NICOLE BOWERS ([phone])[facility] ([facility])[address] [place] [address] [place] CO2 [Moles/Vol] 24 mmol/L Normal 22-29 [facility] Comment on above: Performed By: #### L [id number] ####Medical Technician Assistant: NICOLE BOWERS ([phone])[facility] ([facility])[address] [place] [address] [place] Creatinine [Mass/Vol] 1.94 mg/dL High 0.72-1.25 [facility] Comment on above: Performed By: #### L [id number] ####Medical Technician Assistant: NICOLE BOWERS ([phone])[facility])[address] [place] [address] GLOMERULAR FILTRATION RATE ML/MIN/1.73 SQ M.PREDICTED 42.4 mL/min/1.73m*2 Low >60.0 [facility] Comment on above: Result Comment: Calc ulation based on the Chronic Kidney Disease Epidemiology Collaboration (CKD-EPI) equation refit without adjustment for race Performed By: #### L [id number] ####Medical Technician Assistant: NICOLE BOWERS ([phone])[facility])[address] [place] [address] Glucose [Mass/Vol] 104 mg/dL High 74-100 [facility] Comment on above: Performed By: #### L [id number] ####Medical Technician Assistant: NICOLE BOWERS ([phone])[facility])[address] [place] [address] Potassium [Moles/Vol] 3.6 mmol/L Normal 3.5-5.1 [facility] Comment on above: Result Comment: [facility] potassium values may be up to 0.5 mmol/L lower than serum values. Performed By: #### L [id number] ####Medical Technician Assistant: NICOLE BOWERS ([phone])[facility])[address] [place] [address] Protein [Mass/Vol] 6.0 g/dL Low 6.4-8.3 [facility] Comment on above: Performed By: #### L [id number] ####Medical Technician Assistant: NICOLE BOWERS ([phone])[facility])[address] [place] [address] Sodium [Moles/Vol] 137 mmol/L Normal 136-145 [facility] Comment on above: Performed By: #### L [id number] ####Medical Technician Assistant: NICOLE BOWERS ([phone])[facility])[address] [place] [address] [place] Urea nitrogen [Mass/Vol] 37 mg/dL High 8-21 [facility] Comment on above: Performed By: #### L [id number] ####Medical Technician Assistant: NICOLE [phone])[facility] ([facility])[address] [place] [address] Comprehensive metabolic 1998 panelon 08-15-2024 Albumin [Mass/Vol] 3.1 g/dL Low 3.5 - 5.0 g/dL [facility] ALP [Catalytic activity/Vol] 223 U/L High 40 - 150 U/L [facility] ALT [Catalytic activity/Vol] 69 U/L High NINF - 40 U/L [facility] Anion gap [Moles/Vol] 11 mmol/L 3 - 13 mmol/L [facility] AST [Catalytic activity/Vol] 32 U/L NINF - 34 U/L [facility] Bilirubin [Mass/Vol] 1.9 mg/dL High NINF - 1.2 mg/dL [facility] Calcium [Mass/Vol] 8.3 mg/dL Low 8.4 - 10. 2 mg/dL [facility] Chloride [Moles/Vol] 102 mmol/L 98 - 10 7 mmol/L [facility] CO2 [Moles/Vol] 24 mmol/L 22 - 29 mmol/L [facility] Creatinine [Mass/Vol] 1.94 mg/dL High 0.72 - 1.25 mg/dL [facility] GFR/1.73 sq M.predicted (S/P/Bld) [Vol rate/Area] 42.4 mL/min Low - PINF [facility] Glucose [Mass/Vol] 104 mg/dL High 74 - 100 mg/dL [facility] Interpretation and review of laboratory results Abnormal [facility] Potassium [Moles/Vol] 3.6 mmol/L 3.5 - 5.1 mmol/L [facility] Protein [Mass/Vol] 6 g/dL Low 6.4 - 8.3 g/dL [facility] Sodium [Moles/Vol] 137 mmol/L 136 - 145 mmol/L [facility] Urea nitrogen [Mass/Vol] 37 mg/dL High 8 - 21 mg/dL [facility] Consulton 08-15-2024 Consult Normal [facility] Progress Noteon 08-15-2024 Progress Note Normal [facility] Progress Note Normal [facility] Progress Note Normal [facility] Progress Note Normal [facility] CBC W Auto Differential pane l (Bld)on 08-14-2024 Basophils (Bld) [#/Vol] 0 10*3/uL 0.0 - 0.2 10*3/uL [facility] Basophils/100 WBC (Bld) 0.3 % 0.0 - 2.0 % [facility] Eosinophils (Bld) [#/Vol] 0 10*3/uL 0.0 - 0.5 10*3/uL [facility] Eosinophils/100 WBC (Bld) 0.4 % 0.0 - 6.0 % [facility] Erythrocyte distribution width (RBC) [Ratio] 13.3 % 11.5 - 15.0 % [facility] Hematocrit (Bld) [Volume fraction] 41.7 % 40.0 - 52.0 % [facility] Hemoglobin (Bld) [Mass/Vol] 13.8 g/dL 13.0 - 18.0 g/dL [facility] Immature granulocytes (Bld) [#/Vol] 0 10*3/uL NINF - 0.1 10*3/uL [facility] Immature granulocytes/100 WBC (Bld) 0.4 % 0.0 - 2.0 % [facility] Interpretation and review of laboratory results Abnormal [facility] Lymphocytes (Bld) [#/Vol] 1.9 10*3/uL 1.0 - 4.3 10*3/uL [facility] Lymphocytes/100 WBC (Bld) 25.6 % 15.0 - 45.0 % [facility] MCH (RBC) [Entitic mass] 33.4 pg 26.0 - 34.0 pg [facility] MCHC (RBC) [Mass/Vol] 33.1 % 30.5 - 36.0 % [facility] MCV (RBC) [Entitic vol] 101 fL High 77.0 - 99.0 fL [facility] Monocytes (Bld) [#/Vol] 0.6 10*3/uL 0.0 - 0.9 10*3/uL [facility] Monocytes/100 WBC (Bld) 8.5 % 5.0 - 13.0 % [facility] Neutrophils (Bld) [#/Vol] 4.7 10*3/uL 1.8 - 7.5 10*3/uL [facility] Neutrophils/100 WBC (Bld) 64.8 % 38.0 - 82.0 % [facility] Nucleated RBC/100 WBC (Bld) [Ratio] 0 % [facility] Platelet mean volume (Bld) [Entitic vol] 10.2 fL 9.0 - 12.7 fL [facility] Platelets (Bld) [#/Vol] 258 10*3/uL 140 - 440 10*3/uL [facility] RBC (Bld) [#/Vol] 4.13 10*6/uL Low 4.40 - 5.9 0 10*6/uL [facility] WBC (Bld) [#/Vol] 7.3 10*3/uL 3.6 - 10.7 10*3/uL [facility] CBC WITH AUTO DIFFERENTIALon 08-14-2024 Basophils (Bld) [#/Vol] 0.0 10*3/uL Normal 0.0-0.2 [facility] Comment on above: Performed By: #### L [id number] ####Medical Technician Assistant: NICOLE BOWERS ([phone])[facility] [facility] [place] [address] Basophils/100 WBC (Bld) 0.3 % Normal 0.0-2.0 [facility] Comment on above: Performed By: #### L [id number] ####Medical Technician Assistant: NICOLE BOWERS ([phone])[facility])[address] [place] [address] Eosinophils (Bld) [#/Vol] 0.0 10*3/uL Normal 0.0-0.5 [facility] Comment on above: Performed By: #### L [id number] ####Medical Technician Assistant: NICOLE BOWERS ([phone])[facility])[address] [place] [address] Eosinophils/100 WBC (Bld) 0.4 % Normal 0.0-6.0 [facility] Comment on above: Performed By: #### L [id number] ####Medical Technician Assistant: NICOLE BOWERS ([phone])[facility])[address] [place] [address] Erythrocyte distribution width (RBC) [Ratio] 13.3 % Normal 11.5-15.0 [facility] Comment on above: Performed By: #### L [id number] ####Medical Technician Assistant: NICOLE BOWERS ([phone])[facility])[address] [place] [address] Hematocrit (Bld) [Volume fraction] 41.7 % Normal 40.0-52.0 [facility] Comment on above: Performed By: #### L [id number] ####Medical Technician Assistant: NICOLE BOWERS ([phone])[facility])[address] [place] [address] Hemoglobin (Bld) [Mass/Vol] 13.8 g/dL Normal 13.0-18.0 [facility] Comment on above: Performed By: #### L [id number] ####Medical Technician Assistant: NICOLE BOWERS ([phone])[facility])[address] [place] [address] IMMATURE GRANS % 0.4 % Normal 0.0-2.0 [facility] Comment on above: Performed By: #### L [id number] ####Medical Technician Assistant: NICOLE BOWERS ([phone])[facility])[address] [place] [address] IMMATURE GRANS ABSOLUTE 0.0 10*3/uL Normal <0.1 [facility] Comment on above: Performed By: #### L [id number] ####Medical Technician Assistant: NICOLE BOWERS ([phone])[facility])[address] [place] [address] Lymphocytes (Bld) [#/Vol] 1.9 10*3/uL Normal 1.0-4.3 [facility] Comment on above: Performed By: #### L [id number] ####Medical Technician Assistant: NICOLE BOWERS ([phone])[facility])[address] [place] [address] Lymphocytes/100 WBC (Bld) 25.6 % Normal 15.0-45.0 [facility] Comment on above: Performed By: #### L [id number] ####Medical Technician Assistant: NICOLE [phone])[facility] ([facility])[address] [place] [address] MCH (RBC) [Entitic mass] 33.4 pg Normal 26.0-34.0 [facility] Comment on above: Performed By: #### L [id number] ####Medical Technician Assistant: NICOLE BOWERS ([phone])[facility])[address] [place] [address] MCHC 33.1 % Normal 30.5-36.0 [facility] Comment on above: Performed By: #### L [id number] ####Medical Technician Assistant: NICOLE BOWERS ([phone])[facility])[address] [place] [address] MCV (RBC) [Entitic vol] 101.0 fL High 77.0-99.0 [facility] Comment on above: Performed By: #### L [id number] ####Medical Technician Assistant: NICOLE BOWERS ([phone])[facility] ([facility])[address] [place] [address] Monocytes (Bld) [#/Vol] 0.6 10*3/uL Normal 0.0-0.9 [facility] Comment on above: Performed By: #### L [id number] ####Medical Technician Assistant: NICOLE BOWERS ([phone])[facility])[address] [place] [address] Monocytes/100 WBC (Bld) 8.5 % Normal 5.0-13.0 [facility] Comment on above: Performed By: #### L [id number] ####Medical Technician Assistant: NICOLE BOWERS ([phone])[facility])[address] [place] [address] NEUTROPHILS ABSOLUTE 4.7 10*3/uL Normal 1.8-7.5 [facility] Comment on above: Performed By: #### L [id number] ####Medical Technician Assistant: NICOLE BOWERS ([phone])[facility])[address] [place] [address] Neutrophils/100 WBC (Bld) 64.8 % Normal 38.0-82.0 [facility] Comment on above: Performed By: #### L [id number] ####Medical Technician Assistant: NICOLE BOWERS ([phone])[facility])[address] [place] [address] NRBC 0.0 /100 WBCs Normal 0.0-2.0 [facility] Comment on above: Performed By: #### L [id number] ####Medical Technician Assistant: NICOLE BOWERS ([phone])[facility] ([facility])[address] [place] [address] Platelet mean volume (Bld) [Entitic vol] 10.2 fL Normal 9.0-12.7 [facility] Comment on above: Performed By: #### L [id number] ####Medical Technician Assistant: NICOLE BOWERS ([phone])[facility] ([facility])[address] [place] [address] Platelets (Bld) [#/Vol] 258 10*3/uL Normal 140-440 [facility] Comment on above: Performed By: #### L [id number] ####Medical Technician Assistant: NICOLE BOWERS ([phone])[facility])[address] [place] [address] RBC (Bld) [#/Vol] 4.13 10*6/uL Low 4.40-5.90 [facility] Comment on above: Performed By: #### L [id number] ####Medical Technician Assistant: NICOLE BOWERS ([phone])[facility] ([facility])[address] [place] [address] WBC (Bld) [#/Vol] 7.3 10*3/uL Normal 3.6-10.7 [facility] Comment on above: Performed By: #### L [id number] ####Medical Technician Assistant: NICOLE BOWERS ([phone])[facility])[address] [place] [address] COMPREHENSIVE METABOLIC PANE Ming 08-14-2024 Albumin [Mass/Vol] 2.8 g/dL Low 3.5-5.0 [facility] Comment on above: Performed By: #### L [id number], LAB17 ####Medical Technician Assistant: NICOLE BOWERS ([phone])[facility] ([facility])[address] [place] [address] ALP [Catalytic activity/Vol] 230 U/L High 40-150 [facility] Comment on above: Performed By: #### L [id number], LAB17 ####Medical Technician Assistant: NICOLE BOWERS ([phone])[facility] ([facility])[address] [place] [address] ALT [Catalytic activity/Vol] 73 U/L High <40 [facility] Comment on above: Performed By: #### L [id number], LAB17 ####Medical Technician Assistant: NICOLE BOWERS ([phone])[facility] ([facility])[address] [place] [address] Anion gap [Moles/Vol] 10 mmol/L Normal 3-13 [facility] Comment on above: Performed By: #### L [id number], LAB17 ####Medical Technician Assistant: NICOLE BOWERS ([phone])[facility] ([facility])[address] [place] [address] AST [Catalytic activity/Vol] 36 U/L High <34 [facility] Comment on above: Performed By: #### L [id number], LAB17 ####Medical Technician Assistant: NICOLE BOWERS ([phone])[facility] ([facility])[address] [place] [address] Bilirubin [Mass/Vol] 2.1 mg/dL High <1.2 [facility] Comment on above: Performed By: #### L [id number], LAB17 ####Medical Technician Assistant: NICOLE BOWERS ([phone])[facility])[address] [place] [address] Calcium [Mass/Vol] 8.2 mg/dL Low 8.4-10.2 [facility] Comment on above: Performed By: #### L [id number], LAB17 ####Medical Technician Assistant: NICOLE BOWERS ([phone])[facility])[address] [place] [address] Chloride [Moles/Vol] 102 mmol/L Normal 98-107 [facility] Comment on above: Performed By: #### L [id number], LAB17 ####Medical Technician Assistant: NICOLE BOWERS ([phone])[facility])[address] [place] [address] CO2 [Moles/Vol] 26 mmol/L Normal 22-29 [facility] Comment on above: Performed By: #### L AB103, LAB17 ####Medical Technician Assistant: NICOLE BOWERS ([phone])[facility])[address] [place] [address] Creatinine [Mass/Vol] 2.17 mg/dL High 0.72-1.25 [facility] Comment on above: Performed By: #### L AB103, LAB17 ####Medical Technician Assistant: NICOLE BOWERS ([phone])[facility])[address] [place] [address] GLOMERULAR FILTRATION RATE ML/MIN/1.73 SQ M.PREDICTED 37.1 mL/min/1.73m*2 Low >60.0 [facility] Comment on above: Result Comment: Calc ulation based on the Chronic Kidney Disease Epidemiology Collaboration (CKD-EPI) equation refit without adjustment for race Performed By: #### L AB103, LAB17 ####Medical Technician Assistant: NICOLE BOWERS ([phone])[facility])[address] [place] [address] Glucose [Mass/Vol] 151 mg/dL High 74-100 [facility] Comment on above: Performed By: #### L AB103, LAB17 ####Medical Technician Assistant: NICOLE BOWERS ([phone])[facility])[address] [place] [address] Potassium [Moles/Vol] 3.3 mmol/L Low 3.5-5.1 [facility] Comment on above: Result Comment: [facility] potassium values may be up to 0.5 mmol/L lower than serum values. Performed By: #### L AB103, LAB17 ####Medical Technician Assistant: NICOLE BOWERS ([phone])[facility] ([facility])[address] [place] [address] Protein [Mass/Vol] 5.5 g/dL Low 6.4-8.3 [facility] Comment on above: Performed By: #### L AB103, LAB17 ####Medical Technician Assistant: NICOLE BOWERS ([phone])[facility] ([facility])[address] [place] [address] Sodium [Moles/Vol] 138 mmol/L Normal 136-145 [facility] Comment on above: Performed By: #### L AB103, LAB17 ####Medical Technician Assistant: NICOLE BOWRES ([phone])[facility] ([facility])[address] [place] [address] Urea nitrogen [Mass/Vol] 39 mg/dL High 8-21 [facility] Comment on above: Performed By: #### Pedro [id number], LAB17 ####Medical Technician Assistant: NICOLE BOWERS ([phone])[facility] ([facility])[address] [place] [address] Comprehensive metabolic 1998 panelon 08-14-2024 Albumin [Mass/Vol] 2.8 g/dL Low 3.5 - 5.0 g/dL [facility] ALP [Catalytic activity/Vol] 230 U/L High 40 - 150 U/L [facility] ALT [Catalytic activity/Vol] 73 U/L High NINF - 40 U/L [facility] Anion gap [Moles/Vol] 10 mmol/L 3 - 13 mmol/L [facility] AST [Catalytic activity/Vol] 36 U/L High NINF - 34 U/L [facility] Bilirubin [Mass/Vol] 2.1 mg/dL High NINF - 1.2 mg/dL [facility] Calcium [Mass/Vol] 8.2 mg/dL Low 8.4 - 10. 2 mg/dL [facility] Chloride [Moles/Vol] 102 mmol/L 98 - 10 7 mmol/L [facility] CO2 [Moles/Vol] 26 mmol/L 22 - 29 mmol/L [facility] Creatinine [Mass/Vol] 2.17 mg/dL High 0.72 - 1.25 mg/dL [facility] GFR/1.73 sq M.predicted (S/P/Bld) [Vol rate/Area] 37.1 mL/min Low - PINF [facility] Glucose [Mass/Vol] 151 mg/dL High 74 - 100 mg/dL [facility] Interpretation and review of laboratory results Abnormal [facility] Potassium [Moles/Vol] 3.3 mmol/L Low 3.5 - 5.1 mmol/L [facility] Protein [Mass/Vol] 5.5 g/dL Low 6.4 - 8.3 g/dL [facility] Sodium [Moles/Vol] 138 mmol/L 136 - 145 mmol/L [facility] Urea nitrogen [Mass/Vol] 39 mg/dL High 8 - 21 mg/dL [facility] Laboratory - Chemistry and C hemistry - challengeon 08-14-2024 Magnesium [Mass/Vol] 1.6 mg/dL 1.6 - 2 .6 mg/dL [facility] MAGNESIUMon 08-14-2024 Magnesium [Mass/Vol] 1.6 mg/dL Normal 1.6-2.6 [facility] Comment on above: Result Comment: ALEJANDRO Aleman COMMENTS:Higher values can be expected in females during menses. Performed By: #### L AB103, LAB17 ####Medical Technician Assistant: NICOLE BOWERS ([phone])[address] Magnesium [Mass/Vol]on 08-14 Interpretation and review of laboratory results Normal [facility] Nursing Noteon 08-14-2024 Nursing Note Pt refused bloodwork this night, RN attempted to educate on reasons why bloodwork being drawn daily. Notified Dr. Hawley. Normal [facility] Progress Noteon 08-14-2024 Progress Note Normal [facility] Progress Note Normal [facility] Progress Note Normal [facility] 30on 08-13-2024 30 Normal [facility] 30 Normal [facility] [id number] 08-13-2024 [id number] Has an accepting DR at [facility], no beds. Continues on IV Bumex. Plan is home when stable, Normal [facility] [phone] SW met with pt. Introduced self. SW completed 30 day readmission questionnaire with pt. Pt denies any needs from SW at this time. Normal [facility] CBC W Auto Differential pane l (Bld)on 08-13-2024 Basophils (Bld) [#/Vol] 0 10*3/uL 0.0 - 0.2 10*3/uL [facility] Basophils/100 WBC (Bld) 0.4 % 0.0 - 2.0 % [facility] Eosinophils (Bld) [#/Vol] 0 10*3/uL 0.0 - 0.5 10*3/uL [facility] Eosinophils/100 WBC (Bld) 0.4 % 0.0 - 6.0 % [facility] Erythrocyte distribution width (RBC) [Ratio] 13.2 % 11.5 - 15.0 % [facility] Hematocrit (Bld) [Volume fraction] 40.9 % 40.0 - 52.0 % [facility] Hemoglobin (Bld) [Mass/Vol] 13.8 g/dL 13.0 - 18.0 g/dL [facility] Immature granulocytes (Bld) [#/Vol] 0 10*3/uL NINF - 0.1 10*3/uL [facility] Immature granulocytes/100 WBC (Bld) 0.3 % 0.0 - 2.0 % [facility] Interpretation and review of laboratory results Abnormal [facility] Lymphocytes (Bld) [#/Vol] 2 10*3/uL 1.0 - 4.3 10*3/uL [facility] Lymphocytes/100 WBC (Bld) 27.4 % 15.0 - 45.0 % [facility] MCH (RBC) [Entitic mass] 33.1 pg 26.0 - 34.0 pg [facility] MCHC (RBC) [Mass/Vol] 33.7 % 30.5 - 36.0 % [facility] MCV (RBC) [Entitic vol] 98.1 fL 77.0 - 99.0 fL [facility] Monocytes (Bld) [#/Vol] 0.7 10*3/uL 0.0 - 0.9 10*3/uL [facility] Monocytes/100 WBC (Bld) 8.8 % 5.0 - 13.0 % [facility] Neutrophils (Bld) [#/Vol] 4.7 10*3/uL 1.8 - 7.5 10*3/uL [facility] Neutrophils/100 WBC (Bld) 62.7 % 38.0 - 82.0 % [facility] Nucleated RBC/100 WBC (Bld) [Ratio] 0 % [facility] Platelet mean volume (Bld) [Entitic vol] 10.2 fL 9.0 - 12.7 fL [facility] Platelets (Bld) [#/Vol] 246 10*3/uL 140 - 440 10*3/uL [facility] RBC (Bld) [#/Vol] 4.17 10*6/uL Low 4.40 - 5.9 0 10*6/uL [facility] WBC (Bld) [#/Vol] 7.4 10*3/uL 3.6 - 10.7 10*3/uL [facility] CBC WITH AUTO DIFFERENTIALon 08-13-2024 Basophils (Bld) [#/Vol] 0.0 10*3/uL Normal 0.0-0.2 [facility] Comment on above: Performed By: #### L [id number] ####Medical Technician Assistant: NICOLE BOWERS ([phone])[facility])[address] [place] [address] Basophils/100 WBC (Bld) 0.4 % Normal 0.0-2.0 [facility] Comment on above: Performed By: #### L [id number] ####Medical Technician Assistant: NICOLE BOWERS ([phone])[facility] ([facility])[address] [place] [address] [place] Eosinophils (Bld) [#/Vol] 0.0 10*3/uL Normal 0.0-0.5 [facility] Comment on above: Performed By: #### L [id number] ####Medical Technician Assistant: NICOLE BOWERS ([phone])[facility])[address] [place] [address] [place] Eosinophils/100 WBC (Bld) 0.4 % Normal 0.0-6.0 [facility] Comment on above: Performed By: #### L [id number] ####Medical Technician Assistant: NICOLE BOWERS ([phone])[facility])[address] [place] [address] Erythrocyte distribution width (RBC) [Ratio] 13.2 % Normal 11.5-15.0 [facility] Comment on above: Performed By: #### L [id number] ####Medical Technician Assistant: NICOLE BOWERS ([phone])[facility])[address] [place] [address] Hematocrit (Bld) [Volume fraction] 40.9 % Normal 40.0-52.0 [facility] Comment on above: Performed By: #### L [id number] ####Medical Technician Assistant: NICOLE BOWERS ([phone])[facility])[address] [place] [address] Hemoglobin (Bld) [Mass/Vol] 13.8 g/dL Normal 13.0-18.0 [facility] Comment on above: Performed By: #### L [id number] ####Medical Technician Assistant: NICOLE BOWERS ([phone])[facility])[address] [place] [address] IMMATURE GRANS % 0.3 % Normal 0.0-2.0 [facility] Comment on above: Performed By: #### L [id number] ####Medical Technician Assistant: NICOLE BOWERS ([phone])[facility])[address] [place] [address] IMMATURE GRANS ABSOLUTE 0.0 10*3/uL Normal <0.1 [facility] Comment on above: Performed By: #### L [id number] ####Medical Technician Assistant: NICOLE BOWERS ([phone])[facility])[address] [place] [address] Lymphocytes (Bld) [#/Vol] 2.0 10*3/uL Normal 1.0-4.3 [facility] Comment on above: Performed By: #### L [id number] ####Medical Technician Assistant: NICOLE BOWERS ([phone])[facility])[address] [place] [address] Lymphocytes/100 WBC (Bld) 27.4 % Normal 15.0-45.0 [facility] Comment on above: Performed By: #### L [id number] ####Medical Technician Assistant: NICOLE BOWERS ([phone])[facility] ([facility])[address] [place] [address] MCH (RBC) [Entitic mass] 33.1 pg Normal 26.0-34.0 [facility] Comment on above: Performed By: #### L [id number] ####Medical Technician Assistant: NICOLE BOWERS ([phone])[facility])[address] [place] [address] MCHC 33.7 % Normal 30.5-36.0 [facility] Comment on above: Performed By: #### L [id number] ####Medical Technician Assistant: NICOLE BOWERS ([phone])[facility] ([facility])[address] [place] [address] MCV (RBC) [Entitic vol] 98.1 fL Normal 77.0-99.0 [facility] Comment on above: Performed By: #### L [id number] ####Medical Technician Assistant: NICOLE BOWERS ([phone])[facility])[address] [place] [address] Monocytes (Bld) [#/Vol] 0.7 10*3/uL Normal 0.0-0.9 [facility] Comment on above: Performed By: #### L [id number] ####Medical Technician Assistant: NICOLE BOWERS ([phone])[facility])[address] [place] [address] Monocytes/100 WBC (Bld) 8.8 % Normal 5.0-13.0 [facility] Comment on above: Performed By: #### L [id number] ####Medical Technician Assistant: NICOLE BOWERS ([phone])[facility] ([facility])[address] [place] [address] NEUTROPHILS ABSOLUTE 4.7 10*3/uL Normal 1.8-7.5 [facility] Comment on above: Performed By: #### L [id number] ####Medical Technician Assistant: NICOLE BOWERS ([phone])[facility] ([facility])[address] [place] [address] Neutrophils/100 WBC (Bld) 62.7 % Normal 38.0-82.0 [facility] Comment on above: Performed By: #### L [id number] ####Medical Technician Assistant: NICOLE BOWERS ([phone])[facility] ([facility])[address] [place] [address] NRBC 0.0 /100 WBCs Normal 0.0-2.0 [facility] Comment on above: Performed By: #### L [id number] ####Medical Technician Assistant: NICOLE BOWERS ([phone])[facility] ([facility])[address] [place] [address] Platelet mean volume (Bld) [Entitic vol] 10.2 fL Normal 9.0-12.7 [facility] Comment on above: Performed By: #### L [id number] ####Medical Technician Assistant: NICOLE BOWERS ([phone])[facility] ([facility])[address] [place] [address] Platelets (Bld) [#/Vol] 246 10*3/uL Normal 140-440 [facility] Comment on above: Performed By: #### L [id number] ####Medical Technician Assistant: NICOLE BOWERS ([phone])[facility] ([facility])[address] [place] [address] RBC (Bld) [#/Vol] 4.17 10*6/uL Low 4.40-5.90 [facility] Comment on above: Performed By: #### L [id number] ####Medical Technician Assistant: NICOLE BOWERS ([phone])[facility] ([facility])[address] [place] [address] WBC (Bld) [#/Vol] 7.4 10*3/uL Normal 3.6-10.7 [facility] Comment on above: Performed By: #### L [id number] ####Medical Technician Assistant: NICOLE BOWERS ([phone])[facility])[address] [place] [address] COMPREHENSIVE METABOLIC PANE Ming 08-13-2024 Albumin [Mass/Vol] 3.0 g/dL Low 3.5-5.0 [facility] Comment on above: Performed By: #### L [id number] ####Medical Technician Assistant: NICOLE BOWERS ([phone])[facility] ([facility])[address] [place] [address] ALP [Catalytic activity/Vol] 232 U/L High 40-150 [facility] Comment on above: Performed By: #### L [id number] ####Medical Technician Assistant: NICOLE BOWERS ([phone])[facility] ([facility])[address] [place] [address] ALT [Catalytic activity/Vol] 83 U/L High <40 [facility] Comment on above: Performed By: #### L [id number] ####Medical Technician Assistant: NICOLE BOWERS ([phone])[facility])[address] [place] [address] Anion gap [Moles/Vol] 11 mmol/L Normal 3-13 [facility] Comment on above: Performed By: #### L [id number] ####Medical Technician Assistant: NICOLE BOWERS ([phone])[facility])[address] [place] [address] AST [Catalytic activity/Vol] 38 U/L High <34 [facility] Comment on above: Performed By: #### L [id number] ####Medical Technician Assistant: NICOLE BOWERS ([phone])[facility])[address] [place] [place] [address] Bilirubin [Mass/Vol] 2.9 mg/dL High <1.2 [facility] Comment on above: Performed By: #### L [id number] ####Medical Technician Assistant: NICOLE BOWERS ([phone])[facility] [place] [address] Calcium [Mass/Vol] 8.4 mg/dL Normal 8.4-10.2 [facility] Comment on above: Performed By: #### L [id number] ####Medical Technician Assistant: NICOLE BOWERS ([phone])[facility] [place] [address] [place] Chloride [Moles/Vol] 105 mmol/L Normal 98-107 [facility] Comment on above: Performed By: #### L [id number] ####Medical Technician Assistant: NICOLE BOWERS ([phone])[facility] ([facility])[address] [place] [address] CO2 [Moles/Vol] 20 mmol/L Low 22-29 [facility] Comment on above: Performed By: #### L [id number] ####Medical Technician Assistant: NICOLE BOWERS ([phone])[facility] ([facility])[address] [place] [address] Creatinine [Mass/Vol] 2.24 mg/dL High 0.72-1.25 [facility] Comment on above: Performed By: #### L [id number] ####Medical Technician Assistant: NICOLE BOWERS ([phone])[facility] ([facility])[address] [place] [address] [place] GLOMERULAR FILTRATION RATE ML/MIN/1.73 SQ M.PREDICTED 35.7 mL/min/1.73m*2 Low >60.0 [facility] Comment on above: Result Comment: Calc ulation based on the Chronic Kidney Disease Epidemiology Collaboration (CKD-EPI) equation refit without adjustment for race Performed By: #### L [id number] ####Medical Technician Assistant: NICOLE BOWERS ([phone])[facility] ([facility])[address] [place] [address] [place] Glucose [Mass/Vol] 165 mg/dL High 74-100 [facility] Comment on above: Performed By: #### L [id number] ####Medical Technician Assistant: NIOCLE BOWERS ([phone])[facility] ([facility])[address] [place] [address] Potassium [Moles/Vol] 3.7 mmol/L Normal 3.5-5.1 [facility] Comment on above: Result Comment: [facility] potassium values may be up to 0.5 mmol/L lower than serum values. Performed By: #### L [id number] ####Medical Technician Assistant: NICOLE BOWERS ([phone])[facility] ([facility])[address] [place] [address] Protein [Mass/Vol] 5.7 g/dL Low 6.4-8.3 [facility] Comment on above: Performed By: #### L [id number] ####Medical Technician Assistant: NICOLE BOWERS ([phone])[facility] ([facility])[address] [place] [address] Sodium [Moles/Vol] 136 mmol/L Normal 136-145 [facility] Comment on above: Performed By: #### L [id number] ####Medical Technician Assistant: NICOLE BOWERS ([phone])[facility] ([facility])[address] [place] [address] Urea nitrogen [Mass/Vol] 47 mg/dL High 8-21 [facility] Comment on above: Performed By: #### L [id number] ####Medical Technician Assistant: NICOLE BOWERS ([phone])[facility])[address] [place] [address] Comprehensive metabolic 1998 panelon 08-13-2024 Albumin [Mass/Vol] 3 g/dL Low 3.5 - 5.0 g/dL [facility] ALP [Catalytic activity/Vol] 232 U/L High 40 - 150 U/L [facility] ALT [Catalytic activity/Vol] 83 U/L High NINF - 40 U/L [facility] Anion gap [Moles/Vol] 11 mmol/L 3 - 13 mmol/L [facility] AST [Catalytic activity/Vol] 38 U/L High NINF - 34 U/L [facility] Bilirubin [Mass/Vol] 2.9 mg/dL High NINF - 1.2 mg/dL [facility] Calcium [Mass/Vol] 8.4 mg/dL 8.4 - 10. 2 mg/dL [facility] Chloride [Moles/Vol] 105 mmol/L 98 - 10 7 mmol/L [facility] CO2 [Moles/Vol] 20 mmol/L Low 22 - 29 mmol/L [facility] Creatinine [Mass/Vol] 2.24 mg/dL High 0.72 - 1.25 mg/dL [facility] GFR/1.73 sq M.predicted (S/P/Bld) [Vol rate/Area] 35.7 mL/min Low - PINF [facility] Glucose [Mass/Vol] 165 mg/dL High 74 - 100 mg/dL [facility] Interpretation and review of laboratory results Abnormal [facility] Potassium [Moles/Vol] 3.7 mmol/L 3.5 - 5.1 mmol/L [facility] Protein [Mass/Vol] 5.7 g/dL Low 6.4 - 8.3 g/dL [facility] Sodium [Moles/Vol] 136 mmol/L 136 - 145 mmol/L [facility] Urea nitrogen [Mass/Vol] 47 mg/dL High 8 - 21 mg/dL [facility] LACTIC ACID WITH REFLEXon Lactate [Moles/Vol] 1.9 mmol/L Normal 0.5-2.2 [facility] Comment on above: Performed By: #### L [id number] ####Medical Technician Assistant: NICOLE BOWERS ([phone])[address] Laboratory - Chemistry and C hemistry - challengeon 08-13-2024 Lactate [Moles/Vol] 1.9 mmol/L 0.5 - 2. 2 mmol/L [facility] No Panel Informationon 08-13 Interpretation and review of laboratory results Normal [facility] Nursing Noteon 08-13-2024 Nursing Note RN notified Dr. Demarco rai that patient is refusing all labs this morning. Normal [facility] Progress Noteon 08-13-2024 [facility] Progress Note Normal [facility] Progress Note Normal [facility] Progress Note Normal [facility] [id number] 08-12-2024 [id number] [facility] 30on 08-12-2024 30 Normal [facility] [id number] 08-12-2024 [id number] Informed pt that we do not take his insurance. Can only go to [facility]. Made Dr aware, he is waiting for a return call to see if we can transfer. . [facility] CBC W Auto Differential pane l (Bld)on 08-12-2024 Basophils (Bld) [#/Vol] 0 10*3/uL 0.0 - 0.2 10*3/uL [facility] Basophils/100 WBC (Bld) 0.5 % 0.0 - 2.0 % [facility] Eosinophils (Bld) [#/Vol] 0 10*3/uL 0.0 - 0.5 10*3/uL [facility] Eosinophils/100 WBC (Bld) 0.2 % 0.0 - 6.0 % [facility] Erythrocyte distribution width (RBC) [Ratio] 13.2 % 11.5 - 15.0 % [facility] Hematocrit (Bld) [Volume fraction] 42.2 % 40.0 - 52.0 % [facility] Hemoglobin (Bld) [Mass/Vol] 14 g/dL 13.0 - 18.0 g/dL [facility] Immature granulocytes (Bld) [#/Vol] 0 10*3/uL NINF - 0.1 10*3/uL [facility] Immature granulocytes/100 WBC (Bld) 0.2 % 0.0 - 2.0 % [facility] Interpretation and review of laboratory results Abnormal [facility] Lymphocytes (Bld) [#/Vol] 2.7 10*3/uL 1.0 - 4.3 10*3/uL [facility] Lymphocytes/100 WBC (Bld) 34.1 % 15.0 - 45.0 % [facility] MCH (RBC) [Entitic mass] 33.5 pg 26.0 - 34.0 pg [facility] MCHC (RBC) [Mass/Vol] 33.2 % 30.5 - 36.0 % [facility] MCV (RBC) [Entitic vol] 101 fL High 77.0 - 99.0 fL [facility] Monocytes (Bld) [#/Vol] 0.7 10*3/uL 0.0 - 0.9 10*3/uL [facility] Monocytes/100 WBC (Bld) 9.2 % 5.0 - 13.0 % [facility] Neutrophils (Bld) [#/Vol] 4.5 10*3/uL 1.8 - 7.5 10*3/uL [facility] Neutrophils/100 WBC (Bld) 55.8 % 38.0 - 82.0 % [facility] Nucleated RBC/100 WBC (Bld) [Ratio] 0.2 % [facility] Platelet mean volume (Bld) [Entitic vol] 10.5 fL 9.0 - 12.7 fL [facility] Platelets (Bld) [#/Vol] 263 10*3/uL 140 - 440 10*3/uL [facility] RBC (Bld) [#/Vol] 4.18 10*6/uL Low 4.40 - 5.9 0 10*6/uL [facility] WBC (Bld) [#/Vol] 8 10*3/uL 3.6 - 10.7 10*3/uL [facility] CBC WITH AUTO DIFFERENTIALon 08-12-2024 Basophils (Bld) [#/Vol] 0.0 10*3/uL Normal 0.0-0.2 [facility] Comment on above: Performed By: #### L [id number] ####Medical Technician Assistant: NICOLE BOWERS ([phone])[address] Basophils/100 WBC (Bld) 0.5 % Normal 0.0-2.0 [facility] Comment on above: Performed By: #### L [id number] ####Medical Technician Assistant: NICOLE BOWERS ([phone])[facility])[address] [place] [address] Eosinophils (Bld) [#/Vol] 0.0 10*3/uL Normal 0.0-0.5 [facility] Comment on above: Performed By: #### L [id number] ####Medical Technician Assistant: NICOLE BOWERS ([phone])[facility])[address] [place] [address] Eosinophils/100 WBC (Bld) 0.2 % Normal 0.0-6.0 [facility] Comment on above: Performed By: #### L [id number] ####Medical Technician Assistant: NICOLE BOWERS ([phone])[facility])[address] [place] [address] Erythrocyte distribution width (RBC) [Ratio] 13.2 % Normal 11.5-15.0 [facility] Comment on above: Performed By: #### L [id number] ####Medical Technician Assistant: NICOLE BOWERS ([phone])[address] Hematocrit (Bld) [Volume fraction] 42.2 % Normal 40.0-52.0 [facility] Comment on above: Performed By: #### L [id number] ####Medical Technician Assistant: NICOLE BOWERS ([phone])[facility])[address] [place] [address] Hemoglobin (Bld) [Mass/Vol] 14.0 g/dL Normal 13.0-18.0 [facility] Comment on above: Performed By: #### L [id number] ####Medical Technician Assistant: NICOLE BOWERS ([phone])[facility])[address] [place] [address] IMMATURE GRANS % 0.2 % Normal 0.0-2.0 [facility] Comment on above: Performed By: #### L [id number] ####Medical Technician Assistant: NICOLE BOWERS ([phone])[facility])[address] [place] [address] IMMATURE GRANS ABSOLUTE 0.0 10*3/uL Normal <0.1 [facility] Comment on above: Performed By: #### L [id number] ####Medical Technician Assistant: NICOLE BOWERS ([phone])[facility])[address] [place] [address] Lymphocytes (Bld) [#/Vol] 2.7 10*3/uL Normal 1.0-4.3 [facility] Comment on above: Performed By: #### L [id number] ####Medical Technician Assistant: NICOLE BOWERS ([phone])[facility])[address] [place] [address] Lymphocytes/100 WBC (Bld) 34.1 % Normal 15.0-45.0 [facility] Comment on above: Performed By: #### L [id number] ####Medical Technician Assistant: NICOLE BOWERS ([phone])[facility])[address] [place] [address] MCH (RBC) [Entitic mass] 33.5 pg Normal 26.0-34.0 [facility] Comment on above: Performed By: #### L [id number] ####Medical Technician Assistant: NICOLE BOWERS ([phone])[facility])[address] [place] [address] MCHC 33.2 % Normal 30.5-36.0 [facility] Comment on above: Performed By: #### L [id number] ####Medical Technician Assistant: NICOLE BOWERS ([phone])[facility])[address] [place] [address] MCV (RBC) [Entitic vol] 101.0 fL High 77.0-99.0 [facility] Comment on above: Performed By: #### L [id number] ####Medical Technician Assistant: NICOLE BOWERS ([phone])[facility])[address] [place] [address] Monocytes (Bld) [#/Vol] 0.7 10*3/uL Normal 0.0-0.9 [facility] Comment on above: Performed By: #### L [id number] ####Medical Technician Assistant: NICOLE BOWERS ([phone])[facility])[address] [place] [address] Monocytes/100 WBC (Bld) 9.2 % Normal 5.0-13.0 [facility] Comment on above: Performed By: #### L [id number] ####Medical Technician Assistant: NICOLE BOWERS ([phone])[facility] ([facility])[address] [place] [address] NEUTROPHILS ABSOLUTE 4.5 10*3/uL Normal 1.8-7.5 [facility] Comment on above: Performed By: #### L [id number] ####Medical Technician Assistant: NICOLE BOWERS ([phone])[facility] ([facility])[address] [place] [address] Neutrophils/100 WBC (Bld) 55.8 % Normal 38.0-82.0 [facility] Comment on above: Performed By: #### L [id number] ####Medical Technician Assistant: NICOLE BOWERS ([phone])[facility] ([facility])[address] [place] [address] NRBC 0.2 /100 WBCs Normal 0.0-2.0 [facility] Comment on above: Performed By: #### L [id number] ####Medical Technician Assistant: NICOLE BOWERS ([phone])[facility] ([facility])[address] [place] [address] Platelet mean volume (Bld) [Entitic vol] 10.5 fL Normal 9.0-12.7 [facility] Comment on above: Performed By: #### L [id number] ####Medical Technician Assistant: NICOLE BOWERS ([phone])[facility] ([facility])[address] [place] [address] Platelets (Bld) [#/Vol] 263 10*3/uL Normal 140-440 [facility] Comment on above: Performed By: #### L [id number] ####Medical Technician Assistant: NICOLE BOWERS ([phone])[facility] ([facility])[address] [place] [address] RBC (Bld) [#/Vol] 4.18 10*6/uL Low 4.40-5.90 [facility] Comment on above: Performed By: #### L [id number] ####Medical Technician Assistant: NICOLE BOWERS ([phone])[facility] ([facility])[address] [place] [address] WBC (Bld) [#/Vol] 8.0 10*3/uL Normal 3.6-10.7 [facility] Comment on above: Performed By: #### L [id number] ####Medical Technician Assistant: NICOLE BOWERS ([phone])[facility])[address] [place] [address] COMPREHENSIVE METABOLIC PANE Ming 08-12-2024 Albumin [Mass/Vol] 2.8 g/dL Low 3.5-5.0 [facility] Comment on above: Performed By: #### L [id number] ####Medical Technician Assistant: NICOLE BOWERS ([phone])[facility] ([facility])[address] [place] [address] ALP [Catalytic activity/Vol] 225 U/L High 40-150 [facility] Comment on above: Performed By: #### L [id number] ####Medical Technician Assistant: NICOLE BOWERS ([phone])[facility])[address] [place] [address] ALT [Catalytic activity/Vol] 86 U/L High <40 [facility] Comment on above: Performed By: #### L [id number] ####Medical Technician Assistant: NICOLE BOWERS ([phone])[facility])[address] [place] [address] Anion gap [Moles/Vol] 11 mmol/L Normal 3-13 [facility] Comment on above: Performed By: #### L [id number] ####Medical Technician Assistant: NICOLE BOWERS ([phone])[facility])[address] [place] [address] AST [Catalytic activity/Vol] 47 U/L High <34 [facility] Comment on above: Performed By: #### L [id number] ####Medical Technician Assistant: NICOLE BOWERS ([phone])[facility])[address] [place] [address] Bilirubin [Mass/Vol] 2.0 mg/dL High <1.2 [facility] Comment on above: Performed By: #### L [id number] ####Medical Technician Assistant: NICOLE BOWERS ([phone])[facility] ([facility])[address] [place] [address] Calcium [Mass/Vol] 8.2 mg/dL Low 8.4-10.2 [facility] Comment on above: Performed By: #### L [id number] ####Medical Technician Assistant: NICOLE BOWERS ([phone])[facility] ([facility])[address] [place] [address] [place] Chloride [Moles/Vol] 106 mmol/L Normal 98-107 [facility] Comment on above: Performed By: #### L [id number] ####Medical Technician Assistant: NICOLE BOWERS ([phone])[facility] ([facility])[address] [place] [address] CO2 [Moles/Vol] 19 mmol/L Low 22-29 [facility] Comment on above: Performed By: #### L [id number] ####Medical Technician Assistant: NICOLE BOWERS ([phone])[facility] ([facility])[address] [place] [address] Creatinine [Mass/Vol] 2.23 mg/dL High 0.72-1.25 [facility] Comment on above: Performed By: #### L [id number] ####Medical Technician Assistant: NICOLE BOWERS ([phone])[facility] ([facility])[address] [place] [address] [place] GLOMERULAR FILTRATION RATE ML/MIN/1.73 SQ M.PREDICTED 35.9 mL/min/1.73m*2 Low >60.0 [facility] Comment on above: Result Comment: Calc ulation based on the Chronic Kidney Disease Epidemiology Collaboration (CKD-EPI) equation refit without adjustment for race Performed By: #### L [id number] ####Medical Technician Assistant: NICOLE BOWERS ([phone])[facility] ([facility])[address] [place] [address] Glucose [Mass/Vol] 118 mg/dL High 74-100 [facility] Comment on above: Performed By: #### L [id number] ####Medical Technician Assistant: NICOLE BOWERS ([phone])[facility] ([facility])[address] [place] [address] Potassium [Moles/Vol] 4.3 mmol/L Normal 3.5-5.1 [facility] Comment on above: Result Comment: [facility] potassium values may be up to 0.5 mmol/L lower than serum values. Performed By: #### L [id number] ####Medical Technician Assistant: NICOLE BOWERS ([phone])[facility] ([facility])[address] [place] [address] Protein [Mass/Vol] 5.5 g/dL Low 6.4-8.3 [facility] Comment on above: Performed By: #### L [id number] ####Medical Technician Assistant: NICOLE BOWERS ([phone])[facility])[address] [place] [address] Sodium [Moles/Vol] 136 mmol/L Normal 136-145 [facility] Comment on above: Performed By: #### L [id number] ####Medical Technician Assistant: NICOLE BOWERS ([phone])[facility] ([facility])[address] [place] [address] Urea nitrogen [Mass/Vol] 42 mg/dL High 8-21 [facility] Comment on above: Performed By: #### L [id number] ####Medical Technician Assistant: NICOLE BOWERS ([phone])[facility])[address] [place] [address] Comprehensive metabolic 1998 panelon 08-12-2024 Albumin [Mass/Vol] 2.8 g/dL Low 3.5 - 5.0 g/dL [facility] ALP [Catalytic activity/Vol] 225 U/L High 40 - 150 U/L [facility] ALT [Catalytic activity/Vol] 86 U/L High NINF - 40 U/L [facility] Anion gap [Moles/Vol] 11 mmol/L 3 - 13 mmol/L [facility] AST [Catalytic activity/Vol] 47 U/L High NINF - 34 U/L [facility] Bilirubin [Mass/Vol] 2 mg/dL High NINF - 1.2 mg/dL [facility] Calcium [Mass/Vol] 8.2 mg/dL Low 8.4 - 10. 2 mg/dL [facility] Chloride [Moles/Vol] 106 mmol/L 98 - 10 7 mmol/L [facility] CO2 [Moles/Vol] 19 mmol/L Low 22 - 29 mmol/L [facility] Creatinine [Mass/Vol] 2.23 mg/dL High 0.72 - 1.25 mg/dL [facility] GFR/1.73 sq M.predicted (S/P/Bld) [Vol rate/Area] 35.9 mL/min Low - PINF [facility] Glucose [Mass/Vol] 118 mg/dL High 74 - 100 mg/dL [facility] Interpretation and review of laboratory results Abnormal [facility] Potassium [Moles/Vol] 4.3 mmol/L 3.5 - 5.1 mmol/L [facility] Protein [Mass/Vol] 5.5 g/dL Low 6.4 - 8.3 g/dL [facility] Sodium [Moles/Vol] 136 mmol/L 136 - 145 mmol/L [facility] Urea nitrogen [Mass/Vol] 42 mg/dL High 8 - 21 mg/dL [facility] LACTIC ACID WITH REFLEXon Lactate [Moles/Vol] 2.1 mmol/L Normal 0.5-2.2 [facility] Comment on above: Performed By: #### L [id number] ####Medical Technician Assistant: NICOLE BOWERS ([phone])[address] Lactate [Moles/Vol] 2.4 mmol/L High 0.5-2.2 [facility] Comment on above: Performed By: #### L [id number] ####Medical Technician Assistant: NICOLE BOWERS ([phone])[address] Laboratory - Chemistry and C hemistry - challengeon 08-12-2024 Lactate [Moles/Vol] 2.1 mmol/L 0.5 - 2. 2 mmol/L [facility] Lactate [Moles/Vol] 2.4 mmol/L High 0.5 - 2. 2 mmol/L [facility] NT PRO BNPon 08-12-2024 Natriuretic peptide B (Bld) [Mass/Vol] [id number] pg/mL High <125 [facility] Comment on above: Performed By: #### L [id number] ####Medical Technician Assistant: NICOLE BOWERS ([phone])[facility])[address] [place] [address] Natriuretic peptide B [Mass/ Vol]on 08-12-2024 Interpretation and review of laboratory results Abnormal [facility] Natriuretic peptide B (Bld) [Mass/Vol] 22457 pg/mL High NINF - 125 pg/mL [facility] No Panel Informationon 08-12 Interpretation and review of laboratory results Normal [facility] Interpretation and review of laboratory results Abnormal [facility] Progress Noteon 08-12-2024 Progress Note Normal [facility] Progress Note Normal [facility] Progress Note Normal [facility] Telephone Encounteron 2024 Emission Specialist Authentication Interface Message Text Normal [facility] [id number] 08-11-2024 [id number] Normal [facility] 30on 08-11-2024 30 Progressing Normal [facility] 30 Normal [facility] 30 Progressing Normal [facility] [id number] 08-11-2024 [id number] 30 day re-admit completed. Normal [facility] BLOOD GAS, VENOUSon 08-11-19 25 Base excess Calc (BldV) [Moles/Vol] -1.3000 mmol/L Normal -3.0-3.0 [facility] Comment on above: Performed By: #### L [id number] ####Medical Technician Assistant: NICOLE BOWERS ([phone])[facility] ([facility])[address] [place] [address] CO2 [Moles/Vol] 22.0 mmol/L Low 24.0-28.0 [facility] Comment on above: Performed By: #### L [id number] ####Medical Technician Assistant: NICOLE BOWERS ([phone])[facility] ([facility])[address] [place] [address] HCO3 (Bld) [Moles/Vol] 21.1 mmol/L Low 23.0-27.0 [facility] Comment on above: Performed By: #### L [id number] ####Medical Technician Assistant: NICOLE BOWERS ([phone])[facility])[address] [place] [address] Hemoglobin (Bld) [Mass/Vol] 15.0 g/dL Normal Screen only [facility] Comment on above: Performed By: #### L [id number] ####Medical Technician Assistant: NICOLE BOWERS ([phone])[facility] ([facility])[address] [place] [address] OXYGEN (MM HG) IN VENOUS BLOOD 120.8 mm Hg Normal [facility] Comment on above: Performed By: #### L [id number] ####Medical Technician Assistant: NICOLE BOWERS ([phone])[facility])[address] [place] [address] OXYGEN SATURATION (%) IN VENOUS BLOOD 98.6 % Normal [facility] Comment on above: Performed By: #### L [id number] ####Medical Technician Assistant: NICOLE BOWERS ([phone])[facility])[address] [place] [address] PCO2, JAZ 29.6 mm Hg Low 40.0-55.0 [facility] Comment on above: Performed By: #### L [id number] ####Medical Technician Assistant: NICOLE BOWERS ([phone])[facility])[address] [place] [address] PH VENOUS 7.470 High 7.330-7.430 [facility] Comment on above: Performed By: #### L [id number] ####Medical Technician Assistant: NICOLE BOWERS ([phone])[facility])[address] [place] [address] SOURCE OF OXYGEN Room Air Normal [facility] Comment on above: Result Comment: [...] heparinized syringe. Performed By: #### L [id number] ####Medical Technician Assistant: NICOLE BOWERS ([phone])[facility] ([facility])[address] [place] [address] CBC W Auto Differential pane l (Bld)on 08-11-2024 Basophils (Bld) [#/Vol] 0 10*3/uL 0.0 - 0.2 10*3/uL [facility] Basophils/100 WBC (Bld) 0.4 % 0.0 - 2.0 % [facility] Eosinophils (Bld) [#/Vol] 0 10*3/uL 0.0 - 0.5 10*3/uL [facility] Eosinophils/100 WBC (Bld) 0.2 % 0.0 - 6.0 % [facility] Erythrocyte distribution width (RBC) [Ratio] 13 % 11.5 - 15.0 % [facility] Hematocrit (Bld) [Volume fraction] 42 % 40.0 - 52.0 % [facility] Hemoglobin (Bld) [Mass/Vol] 13.9 g/dL 13.0 - 18.0 g/dL [facility] Immature granulocytes (Bld) [#/Vol] 0 10*3/uL NINF - 0.1 10*3/uL [facility] Immature granulocytes/100 WBC (Bld) 0.2 % 0.0 - 2.0 % [facility] Interpretation and review of laboratory results Abnormal [facility] Lymphocytes (Bld) [#/Vol] 2.8 10*3/uL 1.0 - 4.3 10*3/uL [facility] Lymphocytes/100 WBC (Bld) 33.6 % 15.0 - 45.0 % [facility] MCH (RBC) [Entitic mass] 33.1 pg 26.0 - 34.0 pg [facility] MCHC (RBC) [Mass/Vol] 33.1 % 30.5 - 36.0 % [facility] MCV (RBC) [Entitic vol] 100 fL High 77.0 - 99.0 fL [facility] Monocytes (Bld) [#/Vol] 0.6 10*3/uL 0.0 - 0.9 10*3/uL [facility] Monocytes/100 WBC (Bld) 7.3 % 5.0 - 13.0 % [facility] Neutrophils (Bld) [#/Vol] 4.8 10*3/uL 1.8 - 7.5 10*3/uL [facility] Neutrophils/100 WBC (Bld) 58.3 % 38.0 - 82.0 % [facility] Nucleated RBC/100 WBC (Bld) [Ratio] 0 % [facility] Platelet mean volume (Bld) [Entitic vol] 10.3 fL 9.0 - 12.7 fL [facility] Platelets (Bld) [#/Vol] 243 10*3/uL 140 - 440 10*3/uL [facility] RBC (Bld) [#/Vol] 4.2 10*6/uL Low 4.40 - 5.9 0 10*6/uL [facility] WBC (Bld) [#/Vol] 8.2 10*3/uL 3.6 - 10.7 10*3/uL [facility] CBC WITH AUTO DIFFERENTIALon 08-11-2024 Basophils (Bld) [#/Vol] 0.0 10*3/uL Normal 0.0-0.2 [facility] Comment on above: Performed By: #### L [id number] ####Medical Technician Assistant: NICOLE BOWERS ([phone])[address] Basophils/100 WBC (Bld) 0.4 % Normal 0.0-2.0 [facility] Comment on above: Performed By: #### L [id number] ####Medical Technician Assistant: NICOLE BOWERS ([phone])[facility] ([facility])[address] [place] [address] Eosinophils (Bld) [#/Vol] 0.0 10*3/uL Normal 0.0-0.5 [facility] Comment on above: Performed By: #### L [id number] ####Medical Technician Assistant: NICOLE BOWERS ([phone])[facility] ([facility])[address] [place] [address] [place] Eosinophils/100 WBC (Bld) 0.2 % Normal 0.0-6.0 [facility] Comment on above: Performed By: #### L [id number] ####Medical Technician Assistant: NICOLE BOWERS ([phone])[address] Erythrocyte distribution width (RBC) [Ratio] 13.0 % Normal 11.5-15.0 [facility] Comment on above: Performed By: #### L [id number] ####Medical Technician Assistant: NICOLE BOWERS ([phone])[facility])[address] [place] [address] Hematocrit (Bld) [Volume fraction] 42.0 % Normal 40.0-52.0 [facility] Comment on above: Performed By: #### L [id number] ####Medical Technician Assistant: NICOLE BOWERS ([phone])[address] Hemoglobin (Bld) [Mass/Vol] 13.9 g/dL Normal 13.0-18.0 [facility] Comment on above: Performed By: #### L [id number] ####Medical Technician Assistant: NICOLE BOWERS ([phone])[address] IMMATURE GRANS % 0.2 % Normal 0.0-2.0 [facility] Comment on above: Performed By: #### L [id number] ####Medical Technician Assistant: NICOLE BOWERS ([phone])[address] IMMATURE GRANS ABSOLUTE 0.0 10*3/uL Normal <0.1 [facility] Comment on above: Performed By: #### L [id number] ####Medical Technician Assistant: NICOLE BOWERS ([phone])[address] Lymphocytes (Bld) [#/Vol] 2.8 10*3/uL Normal 1.0-4.3 [facility] Comment on above: Performed By: #### L [id number] ####Medical Technician Assistant: NICOLE BOWERS ([phone])[facility])[address] [place] [address] Lymphocytes/100 WBC (Bld) 33.6 % Normal 15.0-45.0 [facility] Comment on above: Performed By: #### L [id number] ####Medical Technician Assistant: NICOLE BOWERS ([phone])[facility])[address] [place] [address] MCH (RBC) [Entitic mass] 33.1 pg Normal 26.0-34.0 [facility] Comment on above: Performed By: #### L [id number] ####Medical Technician Assistant: NICOLE BOWERS ([phone])[facility])[address] [place] [address] MCHC 33.1 % Normal 30.5-36.0 [facility] Comment on above: Performed By: #### L [id number] ####Medical Technician Assistant: NICOLE BOWERS ([phone])[facility] ([facility])[address] [place] [address] MCV (RBC) [Entitic vol] 100.0 fL High 77.0-99.0 [facility] Comment on above: Performed By: #### L [id number] ####Medical Technician Assistant: NICOLE BOWERS ([phone])[facility])[address] [place] [address] Monocytes (Bld) [#/Vol] 0.6 10*3/uL Normal 0.0-0.9 [facility] Comment on above: Performed By: #### L [id number] ####Medical Technician Assistant: NICOLE BOWERS ([phone])[facility])[address] [place] [address] Monocytes/100 WBC (Bld) 7.3 % Normal 5.0-13.0 [facility] Comment on above: Performed By: #### L [id number] ####Medical Technician Assistant: NICOLE BOWERS ([phone])[facility])[address] [place] [address] NEUTROPHILS ABSOLUTE 4.8 10*3/uL Normal 1.8-7.5 [facility] Comment on above: Performed By: #### L [id number] ####Medical Technician Assistant: NICOLE BOWERS ([phone])[facility] ([facility])[address] [place] [address] Neutrophils/100 WBC (Bld) 58.3 % Normal 38.0-82.0 [facility] Comment on above: Performed By: #### L [id number] ####Medical Technician Assistant: NICOLE BOWERS ([phone])[facility] ([facility])[address] [place] [address] NRBC 0.0 /100 WBCs Normal 0.0-2.0 [facility] Comment on above: Performed By: #### L [id number] ####Medical Technician Assistant: NICOLE BOWERS ([phone])[facility] ([facility])[address] [place] [address] Platelet mean volume (Bld) [Entitic vol] 10.3 fL Normal 9.0-12.7 [facility] Comment on above: Performed By: #### L [id number] ####Medical Technician Assistant: NICOLE BOWERS ([phone])[facility] ([facility])[address] [place] [address] Platelets (Bld) [#/Vol] 243 10*3/uL Normal 140-440 [facility] Comment on above: Performed By: #### L [id number] ####Medical Technician Assistant: NICOLE BOWERS ([phone])[facility] ([facility])[address] [place] [address] [place] RBC (Bld) [#/Vol] 4.20 10*6/uL Low 4.40-5.90 [facility] Comment on above: Performed By: #### L [id number] ####Medical Technician Assistant: NICOLE BOWERS ([phone])[facility] ([facility])[address] [place] [address] [place] WBC (Bld) [#/Vol] 8.2 10*3/uL Normal 3.6-10.7 [facility] Comment on above: Performed By: #### L [id number] ####Medical Technician Assistant: NICOLE BOWERS ([phone])[facility] [place] [address] COMPLETE URINALYSISon 2024 BILIRUBIN, TOTAL PRESENCE IN URINE Negative Normal Negative [facility] Comment on above: Performed By: #### L [id number] ####Medical Technician Assistant: NICOLE BOWERS ([phone])[facility])[address] [place] [address] Clarity (U) Clear Normal Clear [facility] Comment on above: Performed By: #### L [id number] ####Medical Technician Assistant: NICOLE BOWERS ([phone])[facility] ([facility])[address] [place] [address] Color (U) Light Yellow Normal Lt. Yellow [facility] Comment on above: Performed By: #### L [id number] ####Medical Technician Assistant: NICOLE BOWERS ([phone])[facility])[address] [place] [address] GLUCOSE (MG/DL) IN URINE Normal Normal Normal (<70) [facility] Comment on above: Performed By: #### L [id number] ####Medical Technician Assistant: NICOLE BOWERS ([phone])[facility] ([facility])[address] [place] [address] HEMOGLOBIN PRESENCE IN URINE Negative Normal Negative [facility] Comment on above: Performed By: #### L [id number] ####Medical Technician Assistant: NICOLE BOWERS ([phone])[facility] ([facility])[address] [place] [address] Ketones Ql (U) Negative Normal Negative [facility] Comment on above: Performed By: #### L [id number] ####Medical Technician Assistant: NICOLE BOWERS ([phone])[facility] ([facility])[address] [place] [address] LEUKOCYTE ESTERASE PRESENCE IN URINE BY TEST STRIP Negative Normal Negative [facility] Comment on above: Performed By: #### L [id number] ####Medical Technician Assistant: NICOLE BOWERS ([phone])[facility])[address] [place] [address] NITRITE PRESENCE IN URINE Negative Normal Negative [facility] Comment on above: Performed By: #### L [id number] ####Medical Technician Assistant: NICOLE BOWERS ([phone])[facility])[address] [place] [address] pH (U) 5.0 [pH] Normal 5.0-8.0 [facility] Comment on above: Performed By: #### L [id number] ####Medical Technician Assistant: NICOLE BOWERS ([phone])[facility])[address] [place] [address] Protein (U) [Mass/Vol] Negative Normal Negative [facility] Comment on above: Performed By: #### L [id number] ####Medical Technician Assistant: NICOLE BOWERS ([phone])[facility])[address] [place] [address] Specific gravity (U) [Rel density] 1.007 Normal 1.005-1.030 [facility] Comment on above: Performed By: #### L [id number] ####Medical Technician Assistant: NICOLE BOWERS ([phone])[facility])[address] [place] [address] UROBILINOGEN (MG/DL) IN URINE Normal Normal Normal (0-1) [facility] Comment on above: Performed By: #### L [id number] ####Medical Technician Assistant: NICOLE BOWERS ([phone])[facility])[address] [place] [address] COMPREHENSIVE METABOLIC PANE Ming 08-11-2024 Albumin [Mass/Vol] 3.0 g/dL Low 3.5-5.0 [facility] Comment on above: Performed By: #### L [id number], [id number] ####Medical Technician Assistant: NICOLE BOWERS ([phone])[facility] [place] [address] [place] ALP [Catalytic activity/Vol] 201 U/L High 40-150 [facility] Comment on above: Performed By: #### L [id number], [id number] ####Medical Technician Assistant: NICOLE BOWERS ([phone])[facility] ([facility])[address] [place] [address] [place] ALT [Catalytic activity/Vol] 86 U/L High <40 [facility] Comment on above: Performed By: #### L [id number], [id number] ####Medical Technician Assistant: NICOLE BOWERS ([phone])[facility] ([facility])[address] [place] [address] Anion gap [Moles/Vol] 10 mmol/L Normal 3-13 [facility] Comment on above: Performed By: #### L [id number], [id number] ####Medical Technician Assistant: NICOLE BOWERS ([phone])[facility] ([facility])[address] [place] [address] AST [Catalytic activity/Vol] 47 U/L High <34 [facility] Comment on above: Performed By: #### L [id number], [id number] ####Medical Technician Assistant: NICOLE BOWERS ([phone])[facility] ([facility])[address] [place] [address] Bilirubin [Mass/Vol] 2.6 mg/dL High <1.2 [facility] Comment on above: Performed By: #### L [id number], [id number] ####Medical Technician Assistant: NICOLE BOWERS ([phone])[facility] ([facility])[address] [place] [address] [place] Calcium [Mass/Vol] 8.4 mg/dL Normal 8.4-10.2 [facility] Comment on above: Performed By: #### L [id number], [id number] ####Medical Technician Assistant: NICOLE BOWERS ([phone])[facility] ([facility])[address] [place] [address] [place] Chloride [Moles/Vol] 102 mmol/L Normal 98-107 [facility] Comment on above: Performed By: #### L [id number], [id number] ####Medical Technician Assistant: NICOLE BOWERS ([phone])[facility])[address] [place] [address] CO2 [Moles/Vol] 18 mmol/L Low 22-29 [facility] Comment on above: Performed By: #### L [id number], [id number] ####Medical Technician Assistant: NICOLE BOWERS ([phone])[facility])[address] [place] [address] Creatinine [Mass/Vol] 1.80 mg/dL High 0.72-1.25 [facility] Comment on above: Performed By: #### L [id number], [id number] ####Medical Technician Assistant: NICOLE BOWERS ([phone])[facility])[address] [place] [address] GLOMERULAR FILTRATION RATE ML/MIN/1.73 SQ M.PREDICTED 46.4 mL/min/1.73m*2 Low >60.0 [facility] Comment on above: Result Comment: Calc ulation based on the Chronic Kidney Disease Epidemiology Collaboration (CKD-EPI) equation refit without adjustment for race Performed By: #### L [id number], [id number] ####Medical Technician Assistant: NICOLE BOWERS ([phone])[facility])[address] [place] [address] Glucose [Mass/Vol] 94 mg/dL Normal 74-100 [facility] Comment on above: Performed By: #### L [id number], [id number] ####Medical Technician Assistant: NICOLE BOWERS ([phone])[facility])[address] [place] [address] Potassium [Moles/Vol] 4.0 mmol/L Normal 3.5-5.1 [facility] Comment on above: Result Comment: [facility] potassium values may be up to 0.5 mmol/L lower than serum values. Performed By: #### L [id number], [id number] ####Medical Technician Assistant: NICOLE BOWERS ([phone])[facility] ([facility])[address] [place] [address] Protein [Mass/Vol] 5.6 g/dL Low 6.4-8.3 [facility] Comment on above: Performed By: #### L [id number], LAB17 ####Medical Technician Assistant: NICOLE BOWERS ([phone])[facility] ([facility])[address] [place] [address] Sodium [Moles/Vol] 130 mmol/L Low 136-145 [facility] Comment on above: Performed By: #### L [id number], [id number] ####Medical Technician Assistant: NICOLE BOWERS ([phone])[facility] ([facility])[address] [place] [address] Urea nitrogen [Mass/Vol] 39 mg/dL High 8-21 [facility] Comment on above: Performed By: #### L [id number], [id number] ####Medical Technician Assistant: NICOLE BOWERS ([phone])[facility] ([facility])[address] [place] [address] Comprehensive metabolic 1998 panelOrdered By: Eugene Rowan on 08-11-2024 Albumin [Mass/Vol] 3 g/dL Low 3.5 - 5.0 g/dL [facility] ALP [Catalytic activity/Vol] 201 U/L High 40 - 150 U/L [facility] ALT [Catalytic activity/Vol] 86 U/L High NINF - 40 U/L [facility] Anion gap [Moles/Vol] 10 mmol/L 3 - 13 mmol/L [facility] AST [Catalytic activity/Vol] 47 U/L High NINF - 34 U/L [facility] Bilirubin [Mass/Vol] 2.6 mg/dL High NINF - 1.2 mg/dL [facility] Calcium [Mass/Vol] 8.4 mg/dL 8.4 - 10. 2 mg/dL [facility] Chloride [Moles/Vol] 102 mmol/L 98 - 10 7 mmol/L [facility] CO2 [Moles/Vol] 18 mmol/L Low 22 - 29 mmol/L [facility] Creatinine [Mass/Vol] 1.8 mg/dL High 0.72 - 1.25 mg/dL [facility] GFR/1.73 sq M.predicted (S/P/Bld) [Vol rate/Area] 46.4 mL/min Low - PINF [facility] Glucose [Mass/Vol] 94 mg/dL 74 - 100 mg/dL [facility] Interpretation and review of laboratory results Abnormal [facility] Potassium [Moles/Vol] 4 mmol/L 3.5 - 5.1 mmol/L [facility] Protein [Mass/Vol] 5.6 g/dL Low 6.4 - 8.3 g/dL [facility] Sodium [Moles/Vol] 130 mmol/L Low 136 - 145 mmol/L [facility] Urea nitrogen [Mass/Vol] 39 mg/dL High 8 - 21 mg/dL [facility] Consulton 08-11-2024 Consult Normal [facility] Consult Normal [facility] DRUGS OF ABUSEon 08-11-2024 AMPHETAMINE SCREEN Negative Normal [facility] Comment on above: Performed By: #### L [id number] ####Medical Technician Assistant: NICOLE BOWERS ([phone])[facility])[address] [place] [address] BARBITURATES SCREEN Negative Normal [facility] Comment on above: Performed By: #### L [id number] ####Medical Technician Assistant: NICOLE BOWERS ([phone])[facility])[address] [place] [address] BENZODIAZEPINE SCREEN Negative Normal [facility] Comment on above: Performed By: #### L [id number] ####Medical Technician Assistant: NICOLE BOWERS ([phone])[facility])[address] [place] [address] COCAINE METAB. SCREEN Negative Normal [facility] Comment on above: Performed By: #### L [id number] ####Medical Technician Assistant: NICOLE BOWERS ([phone])[facility])[address] [place] [address] FENTANYL SCREEN, UR QUAL Negative Normal [facility] Comment on above: Result Comment: ALEJANDRO R COMMENTS:The expected value for all of [...] under separate order. Performed By: #### L [id number] ####Medical Technician Assistant: NICOLE BOWERS ([phone])[facility])[address] [place] [address] METHADONE SCREEN Negative Normal [facility] Comment on above: Performed By: #### L [id number] ####Medical Technician Assistant: NICOLE BOWERS ([phone])[facility])[address] [place] [address] OPIATES SCREEN Positive Normal [facility] Comment on above: Performed By: #### L [id number] ####Medical Technician Assistant: NICOLE BOWERS ([phone])[facility])[address] [place] [address] OXYCODONE SCREEN Negative Normal [facility] Comment on above: Performed By: #### L [id number] ####Medical Technician Assistant: NICOLE BOWERS ([phone])[facility])[address] [place] [address] PHENCYCLIDINE SCREEN Negative Normal [facility] Comment on above: Performed By: #### L [id number] ####Medical Technician Assistant: NICOLE BOWERS ([phone])[facility])[address] [place] [address] ECG 12-LEADon 08-11-2024 ECG 12-LEAD IMPRESSION: Sinus tachycardia Left atrial enlargement IVCD, CONSIDER ATYPICAL LBBB Electronically Signed On 08-11-2024 12:27:06 EST by Angel Luis Morales Normal [facility] HIGH SENSITIVITY TROPONIN, S ERIAL, SECOND TESTon 08-11-2024 2H TROPONIN HS (SERIAL 2ND TROPONIN) 22 ng/L Normal <=35 [facility] Comment on above: Result Comment: 2h t roponin (2nd troponin) samples collected between 1h 40 min and 2h and 20 min of the baseline collection time can be utilized to interpret delta troponins as per [facility] algorithms. Samples collected outside this timeframe need to be interpreted clinically. Performed By: #### L [id number], [id number] ####Medical Technician Assistant: NICOLE BOWERS ([phone])[facility] ([facility])[address] [place] [address] Laboratory - Chemistry and C hemistry - challengeOrdered By: Michelle Aguilar on 08-11-2024 Base excess Calc (BldV) [Moles/Vol] -1.3000 mmol/L -3.0 - 3.0 mmol/L [facility] CO2 (BldV) [Partial pressure] 29.6 mm[Hg] Low [facility] CO2 [Moles/Vol] 22 mmol/L Low 24.0 - 28.0 mmol/L [facility] HCO3 (Bld) [Moles/Vol] 21.1 mmol/L Low 23.0 - 27.0 mmol/L [facility] Oxygen (BldV) [Partial pressure] 120.8 mm[Hg] mm Hg [facility] pH (BldV) 7.47 [pH] High 7.330 - [facility].[address] [facility] 0 08-11-2024 aPTT Coag (PPP) [Time] 26.8 s 20.0 - 30.5 s [facility] INR Coag (PPP) [Relative time] 1.4 {INR} High 0.9 - 1.1 [facility] PT Coag (Bld) [Time] 15.7 s High 9.0 - 12.0 s [facility] Laboratory - Drug toxicology on 08-11-2024 Amphetamines Screen method >1000 ng/mL Ql (U) Negative [facility] Barbiturates Screen method >200 ng/mL Ql (U) Negative [facility] Benzodiazepines Ql (U) Negative [facility] Methadone Screen Ql (U) Negative [facility] [facility] Screen Ql (U) Positive [facility] oxyCODONE Ql (U) Negative [facility] alth Phencyclidine Ql (U) Negative [facility] - Hematology and Cell countsOrdered By: Michelle Aguilar on 08-11-2024 Hemoglobin (Bld) [Mass/Vol] 15 g/dL Screen only [facility] No Panel Informationon 08-11 COCAINE METAB. SCREEN Negative [facility] FENTANYL SCREEN, UR QUAL Negative [facility] P [place] 70 degrees [facility] [place] Interval 144 ms [facility] QRS [place] 158 degrees [facility] QRSD Interval 153 ms [facility] QT Interval 400 ms [facility] QTC Interval 536 ms [facility] T Wave Arden -5 degrees [facility] CV EPIPHANY [facility] Interpretation and review of laboratory results Abnormal [facility] 2h Troponin HS (Serial 2nd Troponin) 22 ng/L NINF - 35 ng/L [facility] Interpretation and review of laboratory results Normal [facility] No Panel InformationOrdered By: Michelle Aguilar on 08-11-2024 Interpretation and review of laboratory results Abnormal [facility] Source Of Oxygen Room Air [facility] Sonny alth [facility] PROTIME AND APTTon aPTT Coag (Bld) [Time] 26.8 s Normal 20.0-30.5 [facility] Comment on above: Performed By: #### Pedro [id number] ####Medical Technician Assistant: NICOLE BOWERS ([id number])[address] INR Coag (PPP) [Relative time] 1.4 {INR} High 0.9-1.1 [facility] Comment on above: Result Comment: Wili mmended [...] prevent Myocardial Infarction Performed By: #### L [id number] ####Medical Technician Assistant: NICOLE BOWERS ([id number])[facility] ([facility])[address] [place] [address] PT Coag (PPP) [Time] 15.7 s High 9.0-12.0 [facility] [employer] [facility] Comment on above: Performed By: #### L [id number] ####Medical Technician Assistant: NICOLE BOWERS ([phone])[facility] ([employer])[address] [place] [address] Progress Noteon 08-11-2024 Progress Note Normal [facility] [employer] [facility] Progress Note .Nutrition rescreen completed. Chart reviewed. Patient to be monitored and followed by the diet biomedical instrument technician. Melissa Cortes, DT Normal [facility] [employer] [facility] Progress Note Normal [facility] System [facility] Progress Note Normal [facility] System [facility] Progress Note Normal [facility] US Heart TransthoracicOrdere d By: Ana Singletary on 08-11-2024 Ao Root Index 1.44 cm/m2 [facility] Work Phone: Aortic Root 2.9 cm [facility] Work Phone: Aortic valve Mean systole pressure gradient by US.doppler derived full Bernoulli 1 mmHg [facility] Work Phone: Aortic valve Orifice area by US 2.8 cm2 [facility] Work Phone: Aortic valve Peak systolic flow by US.doppler 0.5 m/s [facility] Work Phone: Ascending Aorta 3.2 cm [facility] Work Phone: Ascending Aorta Index 1.58 cm/m2 [facility] Work Phone: AV Area by Peak Velocity 2.4 cm2 [facility] Work Phone: AV Area by VTI 2 cm2 [facility] Work Phone: AV Peak Gradient 2 mmHg [facility] Work Phone: AV Peak Velocity 0.7 m/s [facility] Work Phone: AV Velocity Ratio 0.86 [facility] ealt Work Phone: AV VTI 9.5 cm [facility] [employer] Work Phone: [phone] EMILY/BSA Peak Velocity 1.2 cm2/m2 [facility] [employer] Work Phone: EMILY/BSA VTI 1 cm2/m2 [facility] [employer] Work Phone: E/E' Lateral 8.14 [facility] [employer] Work Phone: E/E' Ratio (Averaged) 9.77 [facility] [employer] Work Phone: [phone] E/E' Septal 11.4 [facility] [employer] Work Phone: Est. RA Pressure 15 mmHg [facility] Work Phone: Fractional Shortening 2D 15 % 28 - 44 % [facility] [employer] Work Phone: [phone] Global Longitudinal Strain -4.1 % [facility] [employer] Work Phone: Interpretation and review of laboratory results Abnormal [facility] [employer] Work Phone: IVC Diameter 3.2 cm [facility] [employer] Work Phone: IVSd 0.7 cm 0.6 - 1.0 cm [facility] [employer] Work Phone: LA Diameter 4.8 cm [facility] [employer] Work Phone: LA Size Index 2.38 cm/m2 [facility] [employer] Work Phone: LA Volume 2C 173 mL Abnormal 18 - 58 mL [facility] [employer] Work Phone: LA Volume 4C 111 mL Abnormal 18 - 58 mL [facility] [employer] Work Phone: LA Volume A/L [address] [facility] [employer] Work Phone: LA Volume BP 146 mL Abnormal 18 - 58 mL [facility] [employer] Work Phone: LA Volume Index 2C 86 mL/m2 Abnormal 16 - 34 mL/m2 [facility] [employer] Work Phone: LA Volume Index 4C 55 mL/m2 Abnormal 16 - 34 mL/m2 [facility] [employer] Work Phone: LA Volume Index A/L 75 mL/m2 16 - 34 mL/m2 [facility] Work Phone: LA Volume Index BP 72 ml/m2 Abnormal 16 - 34 ml/m2 [facility] Work Phone: LA/AO Root Ratio 1.66 [facility] Work Phone: Left ventricular Ejection fraction by US.2D+Calculated by biplane method of disks 18 % Abnormal 55 - 100 % [facility] Work Phone: LV E' Lateral Velocity 7 cm/s [facility] Work Phone: LV E' Septal Velocity 5 cm/s [facility] Work Phone: LV EDV A2C 210 mL [facility] Work Phone: LV EDV A4C 150 mL [facility] Work Phone: LV EDV BP 182 mL Abnormal 67 - 155 mL [facility] Work Phone: [phone] LV EDV Index A2C 104 mL/m2 [facility] Work Phone: LV EDV Index A4C 74 mL/m2 [facility] Work Phone: LV EDV Index BP 90 mL/m2 [facility] Work Phone: LV Ejection Fraction A2C 23 % [facility] Work Phone: LV Ejection Fraction A4C 14 % [facility] Work Phone: LV ESV A2C 162 mL [facility] Work Phone: LV ESV A4C 129 mL [facility] Work Phone: LV ESV BP 149 mL Abnormal 22 - 58 mL [facility] Work Phone: LV ESV Index A2C 80 mL/m2 [facility] Work Phone: LV ESV Index A4C 64 mL/m2 [facility] Work Phone: LV ESV Index BP 74 mL/m2 [facility] Work Phone: LV Mass 2D 198.1 g 88 - 224 g [facility] [employer] Work Phone: LV Mass 2D Index 98.1 g/m2 49 - 115 g/m2 [facility] [employer] Work Phone: LV RWT Ratio 0.25 [facility] [employer] Work Phone: LVIDd 6.5 cm Abnormal 4.2 - 5.9 cm [facility] [employer] Work Phone: [phone] LVIDd Index 3.22 cm/m2 [facility] [employer] Work Phone: [phone] LVIDs 5.5 cm [facility] [employer] Work Phone: [phone] LVIDs Index 2.72 cm/m2 [facility] [employer] Work Phone: [phone] LVOT Cardiac Output 1.8 liter/minute [facility] [employer] Work Phone: LVOT Diameter 1.9 cm [facility] [employer] Work Phone: LVOT Mean Gradient 1 mmHg [facility] [employer] Work Phone: [phone] LVOT Peak Gradient 1 mmHg [facility] [employer] Work Phone: LVOT Peak Velocity 0.6 m/s [facility] [employer] Work Phone: LVOT Stroke Volume Index 9.1 mL/m2 [facility] [employer] Work Phone: LVOT SV 18.4 ml [facility] [employer] Work Phone: [phone] LVOT VTI 6.5 cm [facility] [employer] Work Phone: LVOT:AV VTI Index 0.68 [facility] [employer] [facility] Work Phone: LVPWd 0.8 cm 0.6 - 1.0 cm [facility] [employer] Work Phone: MR VTI 118.3 cm [facility] [employer] Work Phone: MV A Velocity 0.47 m/s [facility] Work Phone: MV E Velocity 0.57 m/s [facility] Work Phone: MV E Wave Deceleration Time 128.5 ms [facility] Work Phone: MV E/A 1.21 [facility] Work Phone: MV Nyquist Velocity 48 cm/s [facility] Work Phone: MV Regurg Velocity PISA 3.6 m/s [facility] Work Phone: RA Area 4C 161 mL [facility] Work Phone: RV Basal Dimension 6.2 cm [facility] Work Phone: RV Free Wall Peak S' 13 cm/s [facility] Work Phone: RV Longitudinal Dimension 8.2 cm [facility] Work Phone: RV Mid Dimension 3.8 cm [facility] Work Phone: RVSP 27 mmHg [facility] Work Phone: TAPSE 1.8 cm 1.7 cm [facility] Work Phone: TR Max Velocity 1.7 m/s [facility] Work Phone: TR Peak Gradient 12 mmHg [facility] Work Phone: TV Nyquist Velocity 48 cm/s [facility] Work Phone: [facility] Work Phone: US Heart Transthoracicon CV CPACS Urinalysis complete panel (U )on 08-11-2024 Bilirubin Ql (U) Negative Negative mg/dL [facility] [employer] Clarity (U) Clear Clear [facility] [employer] Color (U) Light Yellow Lt. Yellow [facility] [employer] Glucose Ql (U) Normal Normal (<70) mg/dL [facility] [employer] Hemoglobin Ql (U) Negative Negative mg/dL [facility] [employer] Interpretation and review of laboratory results Normal [facility] [employer] Ketones (U) [Mass/Vol] Negative Negat dai mg/dL [facility] [employer] Leukocyte esterase Test strip Ql (U) Negative Negative Nicky/uL [facility] [employer] Nitrite Ql (U) Negative Negative [facility] th pH (U) 5.0 [pH] 5.0 - 8.0 pH [facility] Protein (U) [Mass/Vol] Negative Negat dai mg/dL [facility] Specific gravity (U) [Rel density] 1.007 1.005 - 1.030 [facility] Urobilinogen (U) [Mass/Vol] Normal Normal (0-1) mg/dL [facility] Vital signson 08-11-2024 Heart rate 108 /min bpm [facility] Vital signsOrdered By: Kavitha Aguilar on 08-11-2024 Oxygen saturation in Venous blood 98.6 % [facility] XR CHEST 1 VIEWon 08-11-2024 XR CHEST 1 VIEW Normal [facility] XR Chest Single viewon 08-11 [facility] RADIOLOGY [facility] EMERGENCY DEPARTMENT RADIOLOGY [facility] Radiology Study observation (narrative) [facility] XR Chest Single viewOrdered By: Blanche Doyle on 08-11-2024 [facility] Work Phone: 30on 08-10-2024 30 Normal [facility] ED Nursing Noteon 08-10-2024 ED Nursing Note Report called to 5W Normal [facility] ED Nursing Note Pt ambulatory to bathroom with steady gait. Normal [facility] ED Nursing Note Pt reuestning meds for pain and nausea Normal [facility] ED Nursing Note Pt expressing frustration of continued wait time. Ice chips are provided per request Normal [facility] ED Nursing Note [facility] contacted for update. Pt aware of continued wait time for bed assignment. No other requests at present time. Normal [facility] ED Nursing Note Pt declines four eyes skin check for admission Normal [facility] ED Nursing Note PO fluids and light meal provided. Pt updated and aware of continued wait time for bed assignment. Normal [facility] ED Nursing Note Pt has oxygen remove d and sats have been maintained at 97-100% on room air. Will continue to monitor. Normal [facility] ED Nursing Note This nurse returned to room, No urine in urinal or bedside commode, no bm in bedside commode noted. A wipe was in bedside commode. Commode emptied. Patients cardiac monitoring and bp cuff that patient removed was replaced. Normal [facility] ED Nursing Note Normal [facility] ED Nursing Note Notified physician patients spo2 decreasing and blood pressures soft 2L o2 initiated Normal [facility] ED Nursing Note Physician aware unable to collect 2nd trop Normal [facility] Laboratory - Chemistry and C hemistry - challengeon 08-10-2024 Magnesium [Mass/Vol] 2 mg/dL 1.6 - 2 .6 mg/dL [facility] Magnesium [Mass/Vol]on 08-10 [facility] No Panel Informationon 08-10 Interpretation and review of laboratory results Normal [facility] Phosphate [Moles/Vol]on 07-31 Phosphate [Mass/Vol] 4.1 mg/dL 2.3 - 4 .7 mg/dL [facility] US Kidneyon 08-10-2024 [facility] RADIOLOGY [facility] EMERGENCY DEPARTMENT RADIOLOGY [facility] Radiology Study observation (narrative) [facility] KidneyOrdered By: Nir Shen on 08-10-2024 [facility] Work Phone: US RENAL COMPLETEon 08-10-19 US RENAL COMPLETE Normal [facility] CBC W Auto Differential pane l (Bld)on 08-09-2024 Basophils (Bld) [#/Vol] 0 10*3/uL 0.0 - 0.2 10*3/uL [facility] Basophils/100 WBC (Bld) 0.3 % 0.0 - 2.0 % [facility] Eosinophils (Bld) [#/Vol] 0 10*3/uL 0.0 - 0.5 10*3/uL [facility] Eosinophils/100 WBC (Bld) 0.3 % 0.0 - 6.0 % [facility] Erythrocyte distribution width (RBC) [Ratio] 13.2 % 11.5 - 15.0 % [facility] Hematocrit (Bld) [Volume fraction] 42.8 % 40.0 - 52.0 % [facility] Hemoglobin (Bld) [Mass/Vol] 14.2 g/dL 13.0 - 18.0 g/dL [facility] Immature granulocytes (Bld) [#/Vol] 0 10*3/uL NINF - 0.1 10*3/uL [facility] Immature granulocytes/100 WBC (Bld) 0.2 % 0.0 - 2.0 % [facility] Interpretation and review of laboratory results Abnormal [facility] [employer] Lymphocytes (Bld) [#/Vol] 3.1 10*3/uL 1.0 - 4.3 10*3/uL [facility] [employer] Lymphocytes/100 WBC (Bld) 35.6 % 15.0 - 45.0 % [facility] MCH (RBC) [Entitic mass] 33.7 pg 26.0 - 34.0 pg [facility] MCHC (RBC) [Mass/Vol] 33.2 % 30.5 - 36.0 % [facility] [employer] MCV (RBC) [Entitic vol] 101.7 fL High 77.0 - 99.0 fL [facility] [employer] Monocytes (Bld) [#/Vol] 0.6 10*3/uL 0.0 - 0.9 10*3/uL [facility] [employer] Monocytes/100 WBC (Bld) 6.5 % 5.0 - 13.0 % [facility] [employer] Neutrophils (Bld) [#/Vol] 5 10*3/uL 1.8 - 7.5 10*3/uL [facility] [employer] Neutrophils/100 WBC (Bld) 57.1 % 38.0 - 82.0 % [facility] [employer] Nucleated RBC/100 WBC (Bld) [Ratio] 0 % [facility] [employer] Platelet mean volume (Bld) [Entitic vol] 9.9 fL 9.0 - 12.7 fL [facility] [employer] Platelets (Bld) [#/Vol] 245 10*3/uL 140 - 440 10*3/uL [facility] RBC (Bld) [#/Vol] 4.21 10*6/uL Low 4.40 - 5.9 0 10*6/uL [facility] [employer] WBC (Bld) [#/Vol] 8.8 10*3/uL 3.6 - 10.7 10*3/uL [facility] CBC WITH AUTO DIFFERENTIALon 08-09-2024 Basophils (Bld) [#/Vol] 0.0 10*3/uL Normal 0.0-0.2 [facility] Comment on above: Performed By: #### L [id number] ####Medical Technician Assistant: NICOLE BOWERS ([id number])[facility]IT[facility]AMALJ[facility] RITCHINMAY ([facility])[address] [place] [address] Basophils/100 WBC (Bld) 0.3 % Normal 0.0-2.0 [facility] Comment on above: Performed By: #### L [id number] ####Medical Technician Assistant: NICOLE BOWERS ([id number])[facility] ([employer])[address] [place] [address] Eosinophils (Bld) [#/Vol] 0.0 10*3/uL Normal 0.0-0.5 [facility] Comment on above: Performed By: #### L [id number] ####Medical Technician Assistant: NICOLE BOWERS ([phone])[facility] ([employer])[address] [place] [address] Eosinophils/100 WBC (Bld) 0.3 % Normal 0.0-6.0 [facility] Comment on above: Performed By: #### L [id number] ####Medical Technician Assistant: NICOLE BOWERS ([phone])[facility] ([employer])[address] [place] [address] Erythrocyte distribution width (RBC) [Ratio] 13.2 % Normal 11.5-15.0 [facility] Comment on above: Performed By: #### L [id number] ####Medical Technician Assistant: NICOLE BOWERS ([id number])[facility]IN[facility]on RODRIGESKAMALJIT RITTM[facility] ([employer])[address] [place] [address] Hematocrit (Bld) [Volume fraction] 42.8 % Normal 40.0-52.0 [facility] Comment on above: Performed By: #### L [id number] ####Medical Technician Assistant: NICOLE BOWERS ([id number])[facility] RODRIGESKAMAJLIT [facility] ([employer])[address] [place] [address] Hemoglobin (Bld) [Mass/Vol] 14.2 g/dL Normal 13.0-18.0 [facility] Comment on above: Performed By: #### L [id number] ####Medical Technician Assistant: NICOLE BOWERS ([id number])[facility] ([employer])[address] [place] [address] [place] IMMATURE GRANS % 0.2 % Normal 0.0-2.0 [facility] Comment on above: Performed By: #### L [id number] ####Medical Technician Assistant: NICOLE BOWERS ([phone])[facility]IN[facility]on [facility] ([facility])[address] IMMATURE GRANS ABSOLUTE 0.0 10*3/uL Normal <0.1 [facility] Comment on above: Performed By: #### L [id number] ####Medical Technician Assistant: NICOLE BOWERS ([phone])[facility]IN[facility] ([employer])[address] [place] [address] Lymphocytes (Bld) [#/Vol] 3.1 10*3/uL Normal 1.0-4.3 [facility] Comment on above: Performed By: #### L [id number] ####Medical Technician Assistant: NICOLE BOWERS ([id number])[facility] ([employer])[address] [place] [address] Lymphocytes/100 WBC (Bld) 35.6 % Normal 15.0-45.0 [facility] Comment on above: Performed By: #### L [id number] ####Medical Technician Assistant: NICOLE BOWERS ([phone])[facility]IN[facility] ([employer])[address] [place] [address] MCH (RBC) [Entitic mass] 33.7 pg Normal 26.0-34.0 [facility] Comment on above: Performed By: #### L [id number] ####Medical Technician Assistant: NICOLE BOWERS ([id number])[facility]IN[facility] ([employer])[address] [place] [address] MCHC 33.2 % Normal 30.5-36.0 [facility] Comment on above: Performed By: #### L [id number] ####Medical Technician Assistant: NICOLE BOWERS ([id number])[facility] ([employer])[address] [place] [address] MCV (RBC) [Entitic vol] 101.7 fL High 77.0-99.0 [facility] Comment on above: Performed By: #### L [id number] ####Medical Technician Assistant: NICOLE BOWERS ([id number])[facility]IN[facility] ([employer])[address] [place] [address] [place] Monocytes (Bld) [#/Vol] 0.6 10*3/uL Normal 0.0-0.9 [facility] Comment on above: Performed By: #### L [id number] ####Medical Technician Assistant: NICOLE BOWERS ([phone])[facility]IN[facility] ([employer])[address] [place] [address] [place] Monocytes/100 WBC (Bld) 6.5 % Normal 5.0-13.0 [facility] Comment on above: Performed By: #### L [id number] ####Medical Technician Assistant: NICOLE BOWERS ([id number])[facility]IN[facility] ([employer])[address] [place] [address] [place] NEUTROPHILS ABSOLUTE 5.0 10*3/uL Normal 1.8-7.5 [facility] Comment on above: Performed By: #### L [id number] ####Medical Technician Assistant: NICOLE BOWERS ([id number])[facility] ([employer])[address] [place] [address] [place] Neutrophils/100 WBC (Bld) 57.1 % Normal 38.0-82.0 [facility] Comment on above: Performed By: #### L [id number] ####Medical Technician Assistant: NICOLE BOWERS ([id number])[facility]IN[facility] ([employer])[address] [place] [address] [place] NRBC 0.0 /100 WBCs Normal 0.0-2.0 [facility] Comment on above: Performed By: #### L [id number] ####Medical Technician Assistant: NICOLE BOWERS ([id number])[facility] ([employer])[address] [place] [address] [place] Platelet mean volume (Bld) [Entitic vol] 9.9 fL Normal 9.0-12.7 [facility] Comment on above: Result Comment: MPV is a calculated measurement using platelet volume ratio Performed By: #### L [id number] ####Medical Technician Assistant: NICOLE BOWERS ([id number])[facility] ([employer])[address] [place] [address] [place] Platelets (Bld) [#/Vol] 245 10*3/uL Normal 140-440 [facility] Comment on above: Performed By: #### L [id number] ####Medical Technician Assistant: NICOLE BOWERS ([id number])[facility] ([employer])[address] [place] [address] [place] RBC (Bld) [#/Vol] 4.21 10*6/uL Low 4.40-5.90 [facility] Comment on above: Performed By: #### L [id number] ####Medical Technician Assistant: NICOLE BOWERS ([phone])[facility]IN[facility] ([employer])[address] [place] [address] WBC (Bld) [#/Vol] 8.8 10*3/uL Normal 3.6-10.7 [facility] Comment on above: Performed By: #### L [id number] ####Medical Technician Assistant: NICOLE BOWERS ([id number])[facility]INKey[facility] ([employer])[address] [place] [address] COMPREHENSIVE METABOLIC PANE Ming 08-09-2024 Albumin [Mass/Vol] 3.4 g/dL Low 3.5-5.0 [facility] Comment on above: Performed By: #### L [id number], [id number], [id number], [id number], [id number], LAB99 ####Medical Technician Assistant: NICOLE BOWERS ([id number])[facility] ([facility])[address] [place] [address] [place] ALP [Catalytic activity/Vol] 194 U/L High 40-150 [facility] Comment on above: Performed By: #### L [id number], [id number], [id number], LAB17, [id number], LAB99 ####Medical Technician Assistant: NICOLE BOWERS ([id number])[facility]IN[facility] ([employer])[address] [place] [address] [place] ALT [Catalytic activity/Vol] 95 U/L High <40 [facility] Comment on above: Performed By: #### L [id number], [id number], [id number], LAB17, [id number], LAB99 ####Medical Technician Assistant: NICOLE BOWERS ([phone])[facility]INKey[facility] ([employer])[address] Anion gap [Moles/Vol] 8 mmol/L Normal 3-13 [facility] Comment on above: Performed By: #### L [id number], [id number], [id number], LAB17, [id number], LAB99 ####Medical Technician Assistant: NICOLE BOWERS ([id number])[facility]IN[facility] ([facility])[address] [place] [address] [place] AST [Catalytic activity/Vol] 52 U/L High <34 [facility] Comment on above: Performed By: #### L AB113, [id number], [id number], LAB17, [id number], LAB99 ####Medical Technician Assistant: NICOLE BOWERS ([phone])[facility] YEH RITTMAN (SWRLAB)[address] [place] [address] [place] Bilirubin [Mass/Vol] 2.2 mg/dL High <1.2 [facility] Comment on above: Performed By: #### L AB113, [id number], [id number], LAB17, NRW094, LAB99 ####Medical Technician Assistant: NICOLE BOWERS ([phone])[facility] [place] (SWRLAB)[address] [place] [address] [place] Calcium [Mass/Vol] 8.8 mg/dL Normal 8.4-10.2 [facility] Comment on above: Performed By: #### L AB113, [id number], [id number], LAB17, AAC084, LAB99 ####Medical Technician Assistant: NICOLE BOWERS ([phone])[facility] YE[employer] [place]ITTM[place] (SWRLAB)[address] [place] [address] [place] Chloride [Moles/Vol] 104 mmol/L Normal 98-107 [facility] Comment on above: Performed By: #### L AB113, STO726, [id number], LAB17, YMA182, LAB99 ####Medical Technician Assistant: NICOLE BOWERS ([phone])[facility] [employer] (SWRLAB)[address] [place] [address] CO2 [Moles/Vol] 27 mmol/L Normal 22-29 [facility] Comment on above: Performed By: #### L AB113, KCE055, [id number], LAB17, VYL229, LAB99 ####Medical Technician Assistant: NICOLE BOWERS ([phone])[facility] [place] (SWRLAB)[address] [place] [address] [place] Creatinine [Mass/Vol] 1.94 mg/dL High 0.72-1.25 [facility] Comment on above: Performed By: #### L AB113, OSB254, [id number], LAB17, WEM214, LAB99 ####Medical Technician Assistant: NICOLE BOWERS ([phone])[facility] [place] (SWRLAB)[address] [place] [address] [place] GLOMERULAR FILTRATION RATE ML/MIN/1.73 SQ M.PREDICTED 42.4 mL/min/1.73m*2 Low >60.0 [facility] Comment on above: Result Comment: Calc ulation based on the Chronic Kidney Disease Epidemiology Collaboration (CKD-EPI) equation refit without adjustment for race Performed By: #### L AB113, PLU467, [id number], LAB17, PIP292, LAB99 ####Medical Technician Assistant: NICOLE BOWERS ([phone])[facility] FLOREZTMAN (SWRLAB)[address] [place] [address] [place] Glucose [Mass/Vol] 139 mg/dL High 74-100 [facility] Comment on above: Performed By: #### L AB113, CWL229, [id number], LAB17, FGL279, LAB99 ####Medical Technician Assistant: NICOLE BOWERS ([phone])[facility] FLOREZTMAN (SWRLAB)[address] Potassium [Moles/Vol] 3.8 mmol/L Normal 3.5-5.1 [facility] Comment on above: Result Comment: [facility] potassium values may be up to 0.5 mmol/L lower than serum values. Performed By: #### L AB113, DIP636, [id number], LAB17, LUZ742, LAB99 ####Medical Technician Assistant: NICOLE BOWERS ([phone])[facility] FLOREZTMAN (SWRLAB)[address] [place] [address] Protein [Mass/Vol] 6.4 g/dL Normal 6.4-8.3 [facility] Comment on above: Performed By: #### L AB113, TAG604, [id number], LAB17, WZZ137, LAB99 ####Medical Technician Assistant: NICOLE BOWERS ([phone])[facility] FLORE[place] (SWRLAB)[address] [place] [address] [place] Sodium [Moles/Vol] 139 mmol/L Normal 136-145 [facility] Comment on above: Performed By: #### L AB113, YSL985, [id number], LAB17, VGT033, LAB99 ####Medical Technician Assistant: NICOLE BOWERS ([phone])[facility] FLOREZ[place]AN (SWRLAB)[address] [place] [address] [place] Urea nitrogen [Mass/Vol] 35 mg/dL High 8-21 [facility] Comment on above: Performed By: #### L AB113, [id number], [id number], LAB17, BUX496, LAB99 ####Medical Technician Assistant: NICOLE BOWERS ([phone])[facility] LIONEL (SWRLAB)[address] Comprehensive metabolic 1998 panelon 08-09-2024 Albumin [Mass/Vol] 3.4 g/dL Low 3.5 - 5.0 g/dL [facility] ALP [Catalytic activity/Vol] 194 U/L High 40 - 150 U/L [facility] ALT [Catalytic activity/Vol] 95 U/L High NINF - 40 U/L [facility] Anion gap [Moles/Vol] 8 mmol/L 3 - 13 mmol/L [facility] AST [Catalytic activity/Vol] 52 U/L High NINF - 34 U/L [facility] Bilirubin [Mass/Vol] 2.2 mg/dL High NINF - 1.2 mg/dL [facility] Calcium [Mass/Vol] 8.8 mg/dL 8.4 - 10. 2 mg/dL [facility] Chloride [Moles/Vol] 104 mmol/L 98 - 10 7 mmol/L [facility] CO2 [Moles/Vol] 27 mmol/L 22 - 29 mmol/L [facility] Creatinine [Mass/Vol] 1.94 mg/dL High 0.72 - 1.25 mg/dL [facility] GFR/1.73 sq M.predicted (S/P/Bld) [Vol rate/Area] 42.4 mL/min Low - PINF [facility] Glucose [Mass/Vol] 139 mg/dL High 74 - 100 mg/dL [facility] Interpretation and review of laboratory results Abnormal [facility] Potassium [Moles/Vol] 3.8 mmol/L 3.5 - 5.1 mmol/L [facility] Protein [Mass/Vol] 6.4 g/dL 6.4 - 8.3 g/dL [facility] Sodium [Moles/Vol] 139 mmol/L 136 - 145 mmol/L [facility] Urea nitrogen [Mass/Vol] 35 mg/dL High 8 - 21 mg/dL [facility] ECG 12-LEADon 08-09-2024 ECG 12-LEAD Normal [facility] ED Nursing Noteon 08-09-2024 ED Nursing Note Sheets changed per patient request Normal [facility] ED Nursing Note The patient when thi s nurse was leaving room asked when he would be getting pain medications. Physician notified. Normal [facility] ED Nursing Note Normal [facility] ED Provider Noteon ED Provider Note Normal [facility] HIGH SENSITIVITY TROPONIN, S ERIAL BASELINEon 08-09-2024 TROPONIN HS SERIAL BASELINE 31 ng/L Normal <=35 [facility] Comment on above: Result Comment: In i ndividuals presenting with symptoms > 2h, a baseline troponin <= 5 ng/L suggests acutecardiac injury is unlikely and further serial testing is generally not indicated. Performed By: #### L AB113, [id number], [id number], LAB17, HFH971, LAB99 ####Medical Technician Assistant: NICOLE BOWERS ([phone])[facility] KAMALJIT [employer] Mobile StudiosKRISHNAAN (SWRLAB)[address] [place] [address] LIPASEon 08-09-2024 Lipase [Catalytic activity/Vol] 16 U/L Normal <55 [facility] Comment on above: Performed By: #### L AB113, [id number], [id number], LAB17, WYZ231, LAB99 ####Medical Technician Assistant: NICOLE BOWERS ([phone])[facility] KAMALJIT RITTMAN (SWRLAB)[address] [place] [address] Laboratory - Chemistry and C hemistry - challengeon 08-09-2024 Lipase [Catalytic activity/Vol] 16 U/L NINF - 55 U/L [facility] Lipase [Catalytic activity/V ol]on 08-09-2024 Interpretation and review of laboratory results Normal [facility] MAGNESIUMon 08-09-2024 Magnesium [Mass/Vol] 2.0 mg/dL Normal 1.6-2.6 [facility] Comment on above: Result Comment: ORDE R COMMENTS:Higher values can be expected in females during menses. Performed By: #### L AB113, JAI356, [id number], LAB17, KGG895, LAB99 ####Medical Technician Assistant: NICOLE BOWERS ([phone])[facility] KAMALJIT [employer] StudiosKRISHNAAN (SWRLAB)[address] [place] [address] NT PRO BNPon 08-09-2024 Natriuretic peptide B (Bld) [Mass/Vol] 57207 pg/mL High <125 [facility] Comment on above: Performed By: #### L AB113, DLO038, [id number], LAB17, OAS502, LAB99 ####Medical Technician Assistant: NICOLE BOWERS ([phone])[facility] FLOWERS (SWRLAB)[address] [place] [address] Natriuretic peptide B [Mass/ Vol]on 08-09-2024 Interpretation and review of laboratory results Abnormal [facility] Natriuretic peptide B (Bld) [Mass/Vol] 84249 pg/mL High NINF - 125 pg/mL [facility] No Panel Informationon 08-09 Interpretation and review of laboratory results Normal [facility] Troponin HS Serial Baseline 31 ng/L NINF - 35 ng/L [facility] P [place] 63 degrees [facility] [place] Interval 148 ms [facility] QRS [place] -15 degrees [facility] QRSD Interval 95 ms [facility]alt [facility] QT Interval 338 ms [facility] QTC Interval 472 ms [facility] T Wave [place] 122 degrees [facility] CV EPIPHANY [facility] PHOSPHORUSon 08-09-2024 Phosphate [Mass/Vol] 4.1 mg/dL Normal 2.3-4.7 [facility] Comment on above: Performed By: #### L AB113, [id number], [id number], LAB17, CYB958, LAB99 ####Medical Technician Assistant: NICOLE BOWERS ([phone])[facility] FLOWERS (SWRLAB)[address] [place] [address] Vital signson 08-09-2024 Heart rate 117 /min bpm [facility] [employer] XR Chest Single viewon 08-09 [facility] Radiology Study observation (narrative) [facility] [employer] XR Chest Single viewOrdered By: Joel Hi on 08-09-2024 [facility] [employer] Work Phone: [phone] 08-05-2024 36 Normal [facility] 36 Normal [facility] 36 Pt presented to ER last evening, approx [address] Astudillo in office. Pt then left the ER AMA, less than 20 minutes after arriving to the ER. Dr Astudillo will review labs Normal [facility] 36 Normal [facility] BASIC METABOLIC PANELon Anion gap [Moles/Vol] 10 mmol/L Normal 3-13 [facility] Comment on above: Performed By: #### L AB20, YCL454, LAB15, [id number], [id number] ####Medical Technician Assistant: NICOLE BOWERS ([phone])[facility] ([facility])[address] [place] [address] Calcium [Mass/Vol] 8.9 mg/dL Normal 8.4-10.2 [facility] Comment on above: Performed By: #### L AB20, AWD176, LAB15, [id number], [id number] ####Medical Technician Assistant: NICOLE BOWERS ([phone])[facility] ([facility] [place] [address] Chloride [Moles/Vol] 98 mmol/L Normal 98-107 [facility] Comment on above: Performed By: #### L AB20, [id number], LAB15, [id number], ZIQ130 ####Medical Technician Assistant: NICOLE BOWERS ([phone])[facility] [place] [address] CO2 [Moles/Vol] 25 mmol/L Normal 22-29 [facility] Comment on above: Performed By: #### L AB20, UYS677, LAB15, [id number], [id number] ####Medical Technician Assistant: NICOLE BOWERS ([phone])[facility] ([facility] [place] [address] Creatinine [Mass/Vol] 1.62 mg/dL High 0.72-1.25 [facility] Comment on above: Performed By: #### L AB20, SLJ077, LAB15, [id number], MIW967 ####Medical Technician Assistant: NICOLE BOWERS ([phone])[facility] ([facility])[address] [place] [address] GLOMERULAR FILTRATION RATE ML/MIN/1.73 SQ M.PREDICTED 52.7 mL/min/1.73m*2 Low >60.0 [facility] Comment on above: Result Comment: Calc ulation based on the Chronic Kidney Disease Epidemiology Collaboration (CKD-EPI) equation refit without adjustment for race Performed By: #### L AB20, GLL615, LAB15, [id number], [id number] ####Medical Technician Assistant: NICOLE BOWERS ([phone])[facility])[address] [place] [address] Glucose [Mass/Vol] 113 mg/dL High 74-100 [facility] Comment on above: Performed By: #### L AB20, XNG079, LAB15, [id number], [id number] ####Medical Technician Assistant: NICOLE BOWERS ([phone])[address] Potassium [Moles/Vol] 3.6 mmol/L Normal 3.5-5.1 [facility] Comment on above: Result Comment: [facility] potassium values may be up to 0.5 mmol/L lower than serum values. Performed By: #### L AB20, ZMT408, LAB15, [id number], EBI367 ####Medical Technician Assistant: NICOLE BOWERS ([phone])[facility])[address] [place] [address] Sodium [Moles/Vol] 133 mmol/L Low 136-145 [facility] Comment on above: Performed By: #### L AB20, MBR770, LAB15, [id number], [id number] ####Medical Technician Assistant: NICOLE BOWERS ([phone])[facility])[address] [place] [address] Urea nitrogen [Mass/Vol] 38 mg/dL High 8-21 [facility] Comment on above: Performed By: #### L AB20, MUB488, LAB15, [id number], [id number] ####Medical Technician Assistant: NICOLE BOWERS ([phone])[facility])[address] [place] [address] Basic metabolic 1998 panelon 08-05-2024 Anion gap [Moles/Vol] 10 mmol/L 3 - 13 mmol/L [facility] Calcium [Mass/Vol] 8.9 mg/dL 8.4 - 10. 2 mg/dL [facility] Chloride [Moles/Vol] 98 mmol/L 98 - 10 7 mmol/L [facility] CO2 [Moles/Vol] 25 mmol/L 22 - 29 mmol/L [facility] Creatinine [Mass/Vol] 1.62 mg/dL High 0.72 - 1.25 mg/dL [facility] GFR/1.73 sq M.predicted (S/P/Bld) [Vol rate/Area] 52.7 mL/min Low - PINF [facility] Comment on above: Calculation based on the Chronic Kidney Disease Epidemiology Collaboration (CKD-EPI) equation refit without adjustment for race Glucose [Mass/Vol] 113 mg/dL High 74 - 100 mg/dL [facility] Potassium [Moles/Vol] 3.6 mmol/L 3.5 - 5.1 mmol/L [facility] Comment on above: Plasma potassium heidi ues may be up to 0.5 mmol/L lower than serum values. Sodium [Moles/Vol] 133 mmol/L Low 136 - 145 mmol/L [facility] Urea nitrogen [Mass/Vol] 38 mg/dL High 8 - 21 mg/dL [facility] CBC W Auto Differential pane l (Bld)on 08-05-2024 Basophils (Bld) [#/Vol] 0 10*3/uL 0.0 - 0.2 10*3/uL [facility] Basophils/100 WBC (Bld) 0.3 % 0.0 - 2.0 % [facility] Eosinophils (Bld) [#/Vol] 0 10*3/uL 0.0 - 0.5 10*3/uL [facility] Eosinophils/100 WBC (Bld) 0.4 % 0.0 - 6.0 % [facility] Erythrocyte distribution width (RBC) [Ratio] 12.9 % 11.5 - 15.0 % [facility] Hematocrit (Bld) [Volume fraction] 42.7 % 40.0 - 52.0 % [facility] Hemoglobin (Bld) [Mass/Vol] 14.1 g/dL 13.0 - 18.0 g/dL [facility] Immature granulocytes (Bld) [#/Vol] 0 10*3/uL NINF - 0.1 10*3/uL [facility] [employer] Immature granulocytes/100 WBC (Bld) 0.1 % 0.0 - 2.0 % [facility] Interpretation and review of laboratory results Abnormal [facility] Lymphocytes (Bld) [#/Vol] 2.2 10*3/uL 1.0 - 4.3 10*3/uL [facility] Lymphocytes/100 WBC (Bld) 32.2 % 15.0 - 45.0 % [facility] MCH (RBC) [Entitic mass] 33.4 pg 26.0 - 34.0 pg [facility] MCHC (RBC) [Mass/Vol] 33 % 30.5 - 36.0 % [facility] MCV (RBC) [Entitic vol] 101.2 fL High 77.0 - 99.0 fL [facility] Monocytes (Bld) [#/Vol] 0.7 10*3/uL 0.0 - 0.9 10*3/uL [facility] Monocytes/100 WBC (Bld) 9.5 % 5.0 - 13.0 % [facility] Neutrophils (Bld) [#/Vol] 3.9 10*3/uL 1.8 - 7.5 10*3/uL [facility] Neutrophils/100 WBC (Bld) 57.5 % 38.0 - 82.0 % [facility] [employer] Nucleated RBC/100 WBC (Bld) [Ratio] 0 % [facility] Platelet mean volume (Bld) [Entitic vol] 9.7 fL 9.0 - 12.7 fL [facility] Platelets (Bld) [#/Vol] 253 10*3/uL 140 - 440 10*3/uL [facility] RBC (Bld) [#/Vol] 4.22 10*6/uL Low 4.40 - 5.9 0 10*6/uL [facility] WBC (Bld) [#/Vol] 6.8 10*3/uL 3.6 - 10.7 10*3/uL [facility] CBC WITH AUTO DIFFERENTIALon 08-05-2024 Basophils (Bld) [#/Vol] 0.0 10*3/uL Normal 0.0-0.2 [facility] Comment on above: Performed By: #### L [id number] ####Medical Technician Assistant: NICOLE BOWERS ([phone])[facility])[address] [place] [address] Basophils/100 WBC (Bld) 0.3 % Normal 0.0-2.0 [facility] Comment on above: Performed By: #### L [id number] ####Medical Technician Assistant: NICOLE BOWERS ([phone])[facility])[address] [place] [address] Eosinophils (Bld) [#/Vol] 0.0 10*3/uL Normal 0.0-0.5 [facility] Comment on above: Performed By: #### L [id number] ####Medical Technician Assistant: NICOLE BOWERS ([phone])[address] Eosinophils/100 WBC (Bld) 0.4 % Normal 0.0-6.0 [facility] Comment on above: Performed By: #### L [id number] ####Medical Technician Assistant: NICOLE BOWERS ([phone])[facility])[address] [place] [address] Erythrocyte distribution width (RBC) [Ratio] 12.9 % Normal 11.5-15.0 [facility] Comment on above: Performed By: #### L [id number] ####Medical Technician Assistant: NICOLE BOWERS ([phone])[address] Hematocrit (Bld) [Volume fraction] 42.7 % Normal 40.0-52.0 [facility] Comment on above: Performed By: #### L [id number] ####Medical Technician Assistant: NICOLE BOWERS ([phone])[facility])[address] [place] [address] Hemoglobin (Bld) [Mass/Vol] 14.1 g/dL Normal 13.0-18.0 [facility] Comment on above: Performed By: #### L [id number] ####Medical Technician Assistant: NICOLE BOWERS ([phone])[facility])[address] [place] [address] IMMATURE GRANS % 0.1 % Normal 0.0-2.0 [facility] Comment on above: Performed By: #### L [id number] ####Medical Technician Assistant: NICOLE BOWERS ([phone])[facility])[address] [place] [address] IMMATURE GRANS ABSOLUTE 0.0 10*3/uL Normal <0.1 [facility] Comment on above: Performed By: #### L [id number] ####Medical Technician Assistant: NICOLE BOWERS ([phone])[facility])[address] [place] [address] Lymphocytes (Bld) [#/Vol] 2.2 10*3/uL Normal 1.0-4.3 [facility] Comment on above: Performed By: #### L [id number] ####Medical Technician Assistant: NICOLE BOWERS ([phone])[facility])[address] [place] [address] Lymphocytes/100 WBC (Bld) 32.2 % Normal 15.0-45.0 [facility] Comment on above: Performed By: #### L [id number] ####Medical Technician Assistant: NICOLE BOWERS ([phone])[facility])[address] [place] [address] MCH (RBC) [Entitic mass] 33.4 pg Normal 26.0-34.0 [facility] Comment on above: Performed By: #### L [id number] ####Medical Technician Assistant: NICOLE BOWERS ([phone])[facility])[address] [place] [address] MCHC 33.0 % Normal 30.5-36.0 [facility] Comment on above: Performed By: #### L [id number] ####Medical Technician Assistant: NICOLE BOWERS ([phone])[facility])[address] [place] [address] MCV (RBC) [Entitic vol] 101.2 fL High 77.0-99.0 [facility] Comment on above: Performed By: #### L [id number] ####Medical Technician Assistant: NICOLE BOWERS ([phone])[facility] ([facility])[address] [place] [address] Monocytes (Bld) [#/Vol] 0.7 10*3/uL Normal 0.0-0.9 [facility] Comment on above: Performed By: #### L [id number] ####Medical Technician Assistant: NICOLE BOWERS ([phone])[facility] ([facility])[address] [place] [address] Monocytes/100 WBC (Bld) 9.5 % Normal 5.0-13.0 [facility] Comment on above: Performed By: #### L [id number] ####Medical Technician Assistant: NICOLE BOWERS ([phone])[facility])[address] [place] [address] NEUTROPHILS ABSOLUTE 3.9 10*3/uL Normal 1.8-7.5 [facility] Comment on above: Performed By: #### L [id number] ####Medical Technician Assistant: NICOLE BOWERS ([phone])[facility] ([facility])[address] [place] [address] Neutrophils/100 WBC (Bld) 57.5 % Normal 38.0-82.0 [facility] Comment on above: Performed By: #### L [id number] ####Medical Technician Assistant: NICOLE BOWERS ([phone])[facility])[address] [place] [address] NRBC 0.0 /100 WBCs Normal 0.0-2.0 [facility] Comment on above: Performed By: #### L [id number] ####Medical Technician Assistant: NICOLE BOWERS ([phone])[facility])[address] [place] [address] Platelet mean volume (Bld) [Entitic vol] 9.7 fL Normal 9.0-12.7 [facility] Comment on above: Performed By: #### L [id number] ####Medical Technician Assistant: NICOLE BOWERS ([phone])[facility] ([facility])[address] [place] [address] Platelets (Bld) [#/Vol] 253 10*3/uL Normal 140-440 [facility] Comment on above: Performed By: #### L [id number] ####Medical Technician Assistant: NICOLE BOWERS ([phone])[facility] [place] [address] RBC (Bld) [#/Vol] 4.22 10*6/uL Low 4.40-5.90 [facility] Comment on above: Performed By: #### L [id number] ####Medical Technician Assistant: NICOLE BOWERS ([phone])[facility] [place] [address] WBC (Bld) [#/Vol] 6.8 10*3/uL Normal 3.6-10.7 [facility] Comment on above: Performed By: #### L [id number] ####Medical Technician Assistant: NICOLE BOWERS ([phone])[facility] [place] [address] ECG 12-LEADon 08-05-2024 ECG 12-LEAD IMPRESSION: Sinus tachycardia LVH with secondary repolarization abnormality Borderline prolonged QT interval Compared to EKG from 08/04/24, new T wave inversions and ST depression V5 Electronically Signed On 08-05-2024 18:28:44 EST by Roman Alejo Normal [facility] ECG 12-LEAD IMPRESSION: Sinus tachycardia LVH with secondary repolarization abnormality Borderline prolonged QT interval Compared to ECG 07/23/24 No significant change Electronically Signed On 08-05-2024 06:42:39 EST by Chas Haddad Normal [facility] ED Nursing Noteon 08-05-2024 ED Nursing Note Pt came up to this R N stating he wanted to leave and was done waiting. Pt refused to speak with AUTOMAT WATCHER. PIV removed. Pt ambulated out of IRP with steady gait. Ashtyn AUTOMAT WATCHER made aware pt left Normal [facility] HEPATIC FUNCTION PANELon Albumin [Mass/Vol] 3.4 g/dL Low 3.5-5.0 [facility] Comment on above: Performed By: #### L AB20, [id number], LAB15, [id number], [id number] ####Medical Technician Assistant: NICOLE BOWERS ([phone])[facility] ([facility])[address] [place] [address] ALP [Catalytic activity/Vol] 173 U/L High 40-150 [facility] Comment on above: Performed By: #### L AB20, TNP905, LAB15, [id number], [id number] ####Medical Technician Assistant: NICOLE BOWERS ([phone])[facility] ([facility])[address] [place] [address] ALT [Catalytic activity/Vol] 101 U/L High <40 [facility] Comment on above: Performed By: #### L AB20, [id number], LAB15, [id number], [id number] ####Medical Technician Assistant: NICOLE BOWERS ([phone])[facility] ([facility])[address] [place] [address] AST [Catalytic activity/Vol] 50 U/L High <34 [facility] Comment on above: Performed By: #### L AB20, [id number], LAB15, [id number], [id number] ####Medical Technician Assistant: NICOLE BOWERS ([phone])[facility] ([facility])[address] [place] [address] Bilirubin [Mass/Vol] 1.9 mg/dL High <1.2 [facility] Comment on above: Performed By: #### L AB20, [id number], LAB15, [id number], [id number] ####Medical Technician Assistant: NICOLE BOWERS ([phone])[facility] ([facility])[address] [place] [address] [place] Bilirubin.indirect [Mass/Vol] 1.0 mg/dL High <0.5 [facility] Comment on above: Performed By: #### L AB20, [id number], LAB15, [id number], [id number] ####Medical Technician Assistant: NICOLE BOWERS ([phone])[facility] ([facility])[address] [place] [address] Protein [Mass/Vol] 6.6 g/dL Normal 6.4-8.3 [facility] Comment on above: Result Comment: Seru m protein values are higher than plasma values. Samples from recumbent persons are lower by up to 0.5 g/dL as compared to ambulatory persons. After 60 years values are lower by up to 0.2 g/dL. Performed By: #### L AB20, [id number], LAB15, [id number], [id number] ####Medical Technician Assistant: NICOLE BOWERS ([phone])[facility] ([facility])[address] [place] [address] HIGH SENSITIVITY TROPONIN, S ERIAL BASELINEon 08-05-2024 TROPONIN HS SERIAL BASELINE 22 ng/L Normal <=35 [facility] Comment on above: Result Comment: In i ndividuals presenting with symptoms > 2h, a baseline troponin <= 5 ng/L suggests acutecardiac injury is unlikely and further serial testing is generally not indicated. Performed By: #### L AB20, [id number], LAB15, [id number], [id number] ####Medical Technician Assistant: NICOLE BOWERS ([phone])[facility] ([facility])[address] [place] [address] HIGH SENSITIVITY TROPONIN, S ERIAL, SECOND TESTon 08-05-2024 2H TROPONIN HS (SERIAL 2ND TROPONIN) 19 ng/L Normal <=35 [facility] Comment on above: Result Comment: 2h t [...] 3rd serial troponin Performed By: #### L [id number] ####Medical Technician Assistant: NICOLE BOWERS ([phone])[facility] ([facility])[address] [place] [address] Hepatic function 2000 panelo n 08-05-2024 Albumin [Mass/Vol] 3.4 g/dL Low 3.5 - 5.0 g/dL [facility] ALP [Catalytic activity/Vol] 173 U/L High 40 - 150 U/L [facility] ALT [Catalytic activity/Vol] 101 U/L High NINF - 40 U/L [facility] AST [Catalytic activity/Vol] 50 U/L High NINF - 34 U/L [facility] Bilirubin [Mass/Vol] 1.9 mg/dL High NINF - 1.2 mg/dL [facility] Bilirubin.conjugated [Mass/Vol] 1 mg/dL High NINF - 0.5 mg/dL [facility] Protein [Mass/Vol] 6.6 g/dL 6.4 - 8.3 g/dL [facility] Comment on above: Serum protein values are higher than plasma values. Samples from recumbent persons are lower by up to 0.5 g/dL as compared to ambulatory persons. After 60 years values are lower by up to 0.2 g/dL. Laboratory - Chemistry and C hemistry - challengeon 08-05-2024 Magnesium [Mass/Vol] 2 mg/dL 1.6 - 2 .6 mg/dL [facility] MAGNESIUMon 08-05-2024 Magnesium [Mass/Vol] 2.0 mg/dL Normal 1.6-2.6 [facility] [employer] Comment on above: Result Comment: ALEJANDRO Aleman COMMENTS:Higher values can be expected in females during menses. Performed By: #### L AB20, [id number], LAB15, [id number], [id number] ####Medical Technician Assistant: NICOLE BOWERS ([phone])[facility])[address] [place] [address] Magnesium [Mass/Vol]on 08-05 Interpretation and review of laboratory results Normal [facility] Higher values can be expected in females during menses. [facility] NT PRO BNPon 08-05-2024 Natriuretic peptide B (Bld) [Mass/Vol] 97885 pg/mL High <125 [facility] [employer] Comment on above: Performed By: #### L AB20, [id number], LAB15, [id number], [id number] ####Medical Technician Assistant: NICOLE BOWERS ([phone])[facility] [place] [address] [place] Natriuretic peptide B [Mass/ Vol]on 08-05-2024 Interpretation and review of laboratory results Abnormal [facility] Natriuretic peptide B (Bld) [Mass/Vol] 12450 pg/mL High NINF - 125 pg/mL [facility] No Panel Informationon 08-05 2h Troponin HS (Serial 2nd Troponin) 19 ng/L NINF - 35 ng/L [facility] Comment on above: 2h troponin (2nd tro ponin) samples collected between 1h 40 min and 2h and 20 min of the baseline collection time can be utilized to interpret delta troponins as per [facility] algorithms. Samples collected outside this timeframe need to be interpreted clinically. Rising or falling troponin delta between 2 15 ng/L as compared to baseline value requires a 3rd serial troponin Interpretation and review of laboratory results Normal [facility] Sinus tachycardia LVH with secondary repolarization abnormality Borderline prolonged QT interval Compared to ECG 07/23/24 No significant change Electronically Signed On 08-05-2024 06:42:39 EST by Chas Haddad CV Chas Arellano D O - 08/05/2024 IMPRESSION: Sinus tachycardia LVH with secondary repolarization abnormality Borderline prolonged QT interval Compared to ECG 07/23/24 No significant change Electronically Signed On 08-05-2024 06:42:39 EST by Chas Haddad [facility] Interpretation and review of laboratory results Normal [facility] Troponin HS Serial Baseline 22 ng/L NINF - 35 ng/L [facility] Comment on above: In individuals prese nting with symptoms > 2h, a baseline troponin <= 5 ng/L suggests acute cardiac injury is unlikely and further serial testing is generally not indicated. [facility] Interpretation and review of laboratory results Abnormal [facility] No Panel InformationOrdered By: Chas Haddad on 08-05-2024 P Arden 74 degrees [employer] Work Phone: KS Interval 157 ms [employer] Work Phone: QRS Arden -22 degrees [employer] Work Phone: QRSD Interval 99 ms [employer] Work Phone: QT Interval 356 ms [employer] Work Phone: QTC Interval 477 ms [employer] Work Phone: T Wave Arden 154 degrees [employer] Work Phone: [employer] Phone: Progress Noteon 08-05-2024 Progress [facility] Vital signsOrdered By: Clementina Haddad on 08-05-2024 Heart rate 108 /min bpm [facility] Phone: XR Chest 2 Viewson Cardiac enlargement. No convincing acute pulmonary process seen. Report Dictated on Electronically Signed By: Christopher Faria MD Electronically Signed Date/Time: 08/05/2024 3:26 AM EST [facility] Patient Name: CARLO MEDINA [...] process seen. 6, Spine:No convincing acute process [facility] Christopher Faria MD - 08/05/2024 Patient [...] Electronically Signed Date/Time: 08/05/2024 3:26 AM EST [facility] Radiology Study observation (narrative) [facility] [employer] XR Chest 2 ViewsOrdered By: Christopher Faria on 08-05-2024 [facility] [employer] Work Phone: 37on 08-04-2024 37 Normal [facility] ED Provider Noteon ED Provider Note Normal [facility] Progress Noteon 08-04-2024 Progress Note Normal [facility] Progress Note Better controlled today See #1 GDMT Normal [facility] Progress Note 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 Unprovoked at that time [facility] Progress Note Normal [facility] 36on 08-03-2024 36 Unable to contact patient X2 Normal [facility] 36 Normal [facility] 36on 08-02-2024 36 Normal [facility] 36 S: Patient admitted to: [facility] 07/23/24 B: Discharged on : 07/30/24 A: Hospital follow up call initiated to discuss any medication changes, follow up appointments and discharge instructions: Acute kidney injury R: No contact x 1 at : [phone] [facility] [phone] 07-30-2024 [id number] [facility] 30on 07-30-2024 30 Normal [facility] 30 Normal [facility] [id number] 07-30-2024 [id number] Normal [facility] [id number] Normal [facility] ALBUMINon 07-30-2024 Albumin [Mass/Vol] 2.3 g/dL Low 3.5-5.0 [facility] Comment on above: Performed By: #### L AB45, [id number], LAB15, FRH673 ####Medical Technician Assistant: LESLEE HERNANDEZ ([phone])[facility] ([facility])[address] BASIC METABOLIC PANELon 07-02 Anion gap [Moles/Vol] 8 mmol/L Normal 3-13 [facility] Comment on above: Performed By: #### L AB45, [id number], LAB15, [id number] ####Medical Technician Assistant: LESLEE HERNANDEZ ([phone])[facility]ITAL[facility] (SBHLAB)[address] Calcium [Mass/Vol] 6.4 mg/dL Low 8.4-10.2 [facility] Comment on above: Performed By: #### L AB45, UES041, LAB15, IRT690 ####Medical Technician Assistant: LESLEE HERNANDEZ ([phone])[facility] (SBHLAB)[address] Chloride [Moles/Vol] 108 mmol/L High 98-107 [facility] Comment on above: Performed By: #### L AB45, NQT259, LAB15, JXS692 ####Medical Technician Assistant: LESLEE HERNANDEZ ([phone])[facility] ([facility])[address] [place] [address] [place] CO2 [Moles/Vol] 24 mmol/L Normal 22-29 [facility] Comment on above: Performed By: #### L AB45, BVL298, LAB15, SBK925 ####Medical Technician Assistant: LESLEE HERNANDEZ ([phone])[facility] (SBHLAB)[address] [place] [address] [place] Creatinine [Mass/Vol] 1.18 mg/dL Normal 0.72-1.25 [facility] Comment on above: Performed By: #### L AB45, NYD966, LAB15, MMO301 ####Medical Technician Assistant: LESLEE HERNANDEZ ([phone])[facility] (HLAB)[address] GLOMERULAR FILTRATION RATE ML/MIN/1.73 SQ M.PREDICTED 77.1 mL/min/1.73m*2 Normal >60.0 [facility] Comment on above: Result Comment: Calc ulation based on the Chronic Kidney Disease Epidemiology Collaboration (CKD-EPI) equation refit without adjustment for race Performed By: #### L AB45, AHL758, LAB15, GYB803 ####Medical Technician Assistant: LESLEE HERNANDEZ ([phone])[facility] Glucose [Mass/Vol] 92 mg/dL Normal 74-100 [facility] Comment on above: Performed By: #### L AB45, FCU553, LAB15, LFG647 ####Medical Technician Assistant: LESLEE HERNANDEZ ([phone])[facility] (HLAB)[address] Potassium [Moles/Vol] 2.8 mmol/L Low 3.5-5.1 [facility] Comment on above: Result Comment: [facility] potassium values may be up to 0.5 mmol/L lower than serum values. Performed By: #### L AB45, CYB158, LAB15, ZJN614 ####Medical Technician Assistant: LESLEE HERNANDEZ ([phone])[facility] ([facility])[address] [place] [address] [place] Sodium [Moles/Vol] 140 mmol/L Normal 136-145 [facility] Comment on above: Performed By: #### L AB45, [id number], LAB15, VOA124 ####Medical Technician Assistant: LESLEE HERNANDEZ ([phone])[facility] ([facility])[address] [place] [address] [place] Urea nitrogen [Mass/Vol] 30 mg/dL High 8-21 [facility] Comment on above: Performed By: #### L AB45, TBP816, LAB15, YUE125 ####Medical Technician Assistant: LESLEE HERNANDEZ ([phone])[facility] JENNY (SBHL[facility])[address] [place] [address] Basic metabolic 1998 panelon 07-30-2024 Anion gap [Moles/Vol] 8 mmol/L 3 - 13 mmol/L [facility] Calcium [Mass/Vol] 6.4 mg/dL Low 8.4 - 10. 2 mg/dL [facility] Chloride [Moles/Vol] 108 mmol/L High 98 - 10 7 mmol/L [facility] CO2 [Moles/Vol] 24 mmol/L 22 - 29 mmol/L [facility] Creatinine [Mass/Vol] 1.18 mg/dL 0.72 - 1.25 mg/dL [facility] GFR/1.73 sq M.predicted (S/P/Bld) [Vol rate/Area] 77.1 mL/min - PINF [facility] Comment on above: Calculation based on the Chronic Kidney Disease Epidemiology Collaboration (CKD-EPI) equation refit without adjustment for race Glucose [Mass/Vol] 92 mg/dL 74 - 100 mg/dL [facility] Potassium [Moles/Vol] 2.8 mmol/L Low 3.5 - 5.1 mmol/L [facility] Comment on above: Plasma potassium heidi ues may be up to 0.5 mmol/L lower than serum values. Sodium [Moles/Vol] 140 mmol/L 136 - 145 mmol/L [facility] Urea nitrogen [Mass/Vol] 30 mg/dL High 8 - 21 mg/dL [facility] Laboratory - Chemistry and C hemistry - challengeon 07-30-2024 Albumin [Mass/Vol] 2.3 g/dL Low 3.5 - 5.0 g/dL [facility] Magnesium [Mass/Vol] 1.3 mg/dL Low 1.6 - 2 .6 mg/dL [facility] MAGNESIUMon 07-30-2024 Magnesium [Mass/Vol] 1.3 mg/dL Low 1.6-2.6 [facility] Comment on above: Result Comment: ALEJANDRO R COMMENTS:Higher values can be expected in females during menses. Performed By: #### L AB45, [id number], LAB15, GWD400 ####Medical Technician Assistant: LESLEE HERNANDEZ ([phone])[facility] ([facility])[address] Magnesium [Mass/Vol]on 07-30 Higher values can be expected in females during menses. [facility] NT PRO BNPon 07-30-2024 Natriuretic peptide B (Bld) [Mass/Vol] 98963 pg/mL High <125 [facility] Comment on above: Performed By: #### L AB45, NYY127, LAB15, IHA078 ####Medical Technician Assistant: LESLEE HERNANDEZ ([phone])[facility] ([facility])[address] Natriuretic peptide B [Mass/ Vol]on 07-30-2024 Interpretation and review of laboratory results Abnormal [facility] Natriuretic peptide B (Bld) [Mass/Vol] 84772 pg/mL High NINF - 125 pg/mL [facility] No Panel Informationon 07-30 Interpretation and review of laboratory results Abnormal [facility] Interpretation and review of laboratory results Abnormal [facility] Nursing Noteon 07-30-2024 Nursing Note Normal [facility] Progress Noteon 07-30-2024 Progress Note Normal [facility] Progress Note Normal [facility] Progress Note Nutrition update completed. Chart reviewed. Patient continues as a level 1. Normal [facility] 30on 07-29-2024 30 Normal [facility] 30 Normal [facility] CBC W Auto Differential pane l (Bld)on 07-29-2024 Basophils (Bld) [#/Vol] 0 10*3/uL 0.0 - 0.2 10*3/uL [facility] Basophils/100 WBC (Bld) 0.5 % 0.0 - 2.0 % [facility] Eosinophils (Bld) [#/Vol] 0.1 10*3/uL 0.0 - 0.5 10*3/uL [facility] Eosinophils/100 WBC (Bld) 1.7 % 0.0 - 6.0 % [facility] Erythrocyte distribution width (RBC) [Ratio] 13 % 11.5 - 15.0 % [facility] Hematocrit (Bld) [Volume fraction] 38.9 % Low 40.0 - 52.0 % [facility] Hemoglobin (Bld) [Mass/Vol] 12.5 g/dL Low 13.0 - 18.0 g/dL [facility] Immature granulocytes (Bld) [#/Vol] 0 10*3/uL NINF - 0.1 10*3/uL [facility] Immature granulocytes/100 WBC (Bld) 0.3 % 0.0 - 2.0 % [facility] Interpretation and review of laboratory results Abnormal [facility] Lymphocytes (Bld) [#/Vol] 2.3 10*3/uL 1.0 - 4.3 10*3/uL [facility] Lymphocytes/100 WBC (Bld) 39.3 % 15.0 - 45.0 % [facility] MCH (RBC) [Entitic mass] 33.5 pg 26.0 - 34.0 pg [facility] MCHC (RBC) [Mass/Vol] 32.1 % 30.5 - 36.0 % [facility] MCV (RBC) [Entitic vol] 104.3 fL High 77.0 - 99.0 fL [facility] Monocytes (Bld) [#/Vol] 0.5 10*3/uL 0.0 - 0.9 10*3/uL [facility] Monocytes/100 WBC (Bld) 8.6 % 5.0 - 13.0 % [facility] Neutrophils (Bld) [#/Vol] 2.9 10*3/uL 1.8 - 7.5 10*3/uL [facility] Neutrophils/100 WBC (Bld) 49.6 % 38.0 - 82.0 % [facility] Nucleated RBC/100 WBC (Bld) [Ratio] 0 % [facility] [employer] Platelet mean volume (Bld) [Entitic vol] 8.9 fL Low 9.0 - 12.7 fL [facility] Platelets (Bld) [#/Vol] 202 10*3/uL 140 - 440 10*3/uL [facility] RBC (Bld) [#/Vol] 3.73 10*6/uL Low 4.40 - 5.9 0 10*6/uL [facility] WBC (Bld) [#/Vol] 5.9 10*3/uL 3.6 - 10.7 10*3/uL [facility] CBC WITH AUTO DIFFERENTIALon 07-29-2024 Basophils (Bld) [#/Vol] 0.0 10*3/uL Normal 0.0-0.2 [facility] Comment on above: Performed By: #### L [id number] ####Medical Technician Assistant: LESLEE HERNANDEZ ([phone])[facility] [place] (SBHL[facility])[address] Basophils/100 WBC (Bld) 0.5 % Normal 0.0-2.0 [facility] Comment on above: Performed By: #### L [id number] ####Medical Technician Assistant: LESLEE HERNANDEZ ([phone])[facility] [place] ([facility])[address] [place] [address] Eosinophils (Bld) [#/Vol] 0.1 10*3/uL Normal 0.0-0.5 [facility] Comment on above: Performed By: #### L [id number] ####Medical Technician Assistant: LESLEE HERNANDEZ ([phone])[facility] [place] ([facility])[address] [place] [address] Eosinophils/100 WBC (Bld) 1.7 % Normal 0.0-6.0 [facility] Comment on above: Performed By: #### L [id number] ####Medical Technician Assistant: LESLEE HERNANDEZ ([phone])[facility] [place] ([facility])[address] [place] [address] Erythrocyte distribution width (RBC) [Ratio] 13.0 % Normal 11.5-15.0 [facility] Comment on above: Performed By: #### L [id number] ####Medical Technician Assistant: LESLEE HERNANDEZ ([phone])[facility] [place] ([facility])[address] [place] [address] Hematocrit (Bld) [Volume fraction] 38.9 % Low 40.0-52.0 [facility] Comment on above: Performed By: #### L [id number] ####Medical Technician Assistant: LESLEE HERNANDEZ ([phone])[facility] [place] ([facility])[address] Hemoglobin (Bld) [Mass/Vol] 12.5 g/dL Low 13.0-18.0 [facility] Comment on above: Performed By: #### L [id number] ####Medical Technician Assistant: LESLEE HERNANDEZ ([phone])[facility] ([facility])[address] IMMATURE GRANS % 0.3 % Normal 0.0-2.0 [facility] Comment on above: Performed By: #### L [id number] ####Medical Technician Assistant: LESLEE HERNANDEZ ([phone])[facility] IMMATURE GRANS ABSOLUTE 0.0 10*3/uL Normal <0.1 [facility] Comment on above: Performed By: #### L [id number] ####Medical Technician Assistant: LESLEE HERNANDEZ ([phone])[facility] [place] (SB[facility])[address] Lymphocytes (Bld) [#/Vol] 2.3 10*3/uL Normal 1.0-4.3 [facility] Comment on above: Performed By: #### L [id number] ####Medical Technician Assistant: LESLEE HERNANDEZ ([phone])[facility] (SBAB)[address] Lymphocytes/100 WBC (Bld) 39.3 % Normal 15.0-45.0 [facility] Comment on above: Performed By: #### L [id number] ####Medical Technician Assistant: LESLEE HERNANDEZ ([phone])[facility] (SB[facility])[address] MCH (RBC) [Entitic mass] 33.5 pg Normal 26.0-34.0 [facility] Comment on above: Performed By: #### L [id number] ####Medical Technician Assistant: LESLEE HERNANDEZ ([phone])[facility] [place] (SB[facility])[address] MCHC 32.1 % Normal 30.5-36.0 [facility] Comment on above: Performed By: #### L [id number] ####Medical Technician Assistant: LESLEE MCNEILLNinoskaTYRONE ([phone])[facility] [place] (SBHL[facility])[address] MCV (RBC) [Entitic vol] 104.3 fL High 77.0-99.0 [facility] Comment on above: Performed By: #### L [id number] ####Medical Technician Assistant: LESLEE HERNANDEZ ([phone])[facility] [place] (SB[facility])[address] Monocytes (Bld) [#/Vol] 0.5 10*3/uL Normal 0.0-0.9 [facility] Comment on above: Performed By: #### L [id number] ####Medical Technician Assistant: LESLEE HERNANDEZ ([phone])[facility] ([facility])[address] Monocytes/100 WBC (Bld) 8.6 % Normal 5.0-13.0 [facility] Comment on above: Performed By: #### L [id number] ####Medical Technician Assistant: LESLEE HERNANDEZ ([phone])[facility] ([facility])[address] NEUTROPHILS ABSOLUTE 2.9 10*3/uL Normal 1.8-7.5 [facility] Comment on above: Performed By: #### L [id number] ####Medical Technician Assistant: LESLEE HERNANDEZ ([id number])[facility] ([facility])[address] Neutrophils/100 WBC (Bld) 49.6 % Normal 38.0-82.0 [facility] Comment on above: Performed By: #### L [id number] ####Medical Technician Assistant: LESLEE HERNANDEZ ([phone])[facility] (SB[facility])[address] NRBC 0.0 /100 WBCs Normal 0.0-2.0 [facility] Comment on above: Performed By: #### L [id number] ####Medical Technician Assistant: LESLEE TURKTYRONE ([phone])[facility] (SBHLAB)[address] Platelet mean volume (Bld) [Entitic vol] 8.9 fL Low 9.0-12.7 [facility] Comment on above: Performed By: #### L [id number] ####Medical Technician Assistant: LESLEE HERNANDEZ ([id number])[facility] (SBHLAB)[address] Platelets (Bld) [#/Vol] 202 10*3/uL Normal 140-440 [facility] Comment on above: Performed By: #### L [id number] ####Medical Technician Assistant: LESLEE HERNANDEZ ([id number])[facility] (SBHLAB)[address] [place] [address] RBC (Bld) [#/Vol] 3.73 10*6/uL Low 4.40-5.90 [facility] Comment on above: Performed By: #### L [id number] ####Medical Technician Assistant: LESLEE HERNANDEZ ([phone])[facility] ([facility])[address] [place] [address] WBC (Bld) [#/Vol] 5.9 10*3/uL Normal 3.6-10.7 [facility] Comment on above: Performed By: #### L [id number] ####Medical Technician Assistant: LESLEE HERNANDEZ ([phone])[facility] ([facility])[address] COMPREHENSIVE METABOLIC PANE Ming 07-29-2024 Albumin [Mass/Vol] 2.4 g/dL Low 3.5-5.0 [facility] [facility] Comment on above: Performed By: #### L AB103, LAB17, [id number] ####Medical Technician Assistant: LESLEE HERNANDEZ ([phone])[facility] (SBHLAB)[address] ALP [Catalytic activity/Vol] 125 U/L Normal 40-150 [facility] Comment on above: Performed By: #### L AB103, LAB17, [id number] ####Medical Technician Assistant: LESLEE HERNANDEZ ([phone])[facility] [place] (SBHLAB)[address] ALT [Catalytic activity/Vol] 36 U/L Normal <40 [facility] Comment on above: Performed By: #### L AB103, LAB17, [id number] ####Medical Technician Assistant: LESLEE HERNANDEZ ([phone])[facility] [place] (SBHLAB)[address] Anion gap [Moles/Vol] 8 mmol/L Normal 3-13 [facility] Comment on above: Performed By: #### L AB103, LAB17, [id number] ####Medical Technician Assistant: LESLEE HERNANDEZ ([phone])[facility]IN[facility] [place] (SBHLAB)[address] AST [Catalytic activity/Vol] 22 U/L Normal <34 [facility] Comment on above: Performed By: #### L AB103, LAB17, [id number] ####Medical Technician Assistant: LESLEE HERNANDEZ ([phone])[facility] [place] (SBHLAB)[address] Bilirubin [Mass/Vol] 1.2 mg/dL High <1.2 [facility] Comment on above: Performed By: #### L AB103, LAB17, [id number] ####Medical Technician Assistant: LESLEE HERNANDEZ ([phone])[facility] [place] (SBHLAB)[address] Calcium [Mass/Vol] 6.9 mg/dL Low 8.4-10.2 [facility] Comment on above: Performed By: #### L AB103, LAB17, [id number] ####Medical Technician Assistant: LESLEE HERNANDEZ ([phone])[facility] [place] (SBHLAB)[address] [place] [address] [place] Chloride [Moles/Vol] 103 mmol/L Normal 98-107 [facility] Comment on above: Performed By: #### Pedro AB103, LAB17, [id number] ####Medical Technician Assistant: LESLEE HERNANDEZ ([phone])[facility]IN[facility] [place] (SBHLAB)[address] [place] [address] [place] CO2 [Moles/Vol] 25 mmol/L Normal 22-29 [facility] Comment on above: Performed By: #### Pedro ECHEVERRIA, LAB17, [id number] ####Medical Technician Assistant: LESLEE HERNANDEZ ([phone])[facility] [place] (SBHLAB)[address] Creatinine [Mass/Vol] 1.36 mg/dL High 0.72-1.25 [facility] Comment on above: Performed By: #### Pedro ECHEVERRIA, LAB17, [id number] ####Medical Technician Assistant: LESLEE HERNANDEZ ([phone])[facility]INKey[facility] (SBHLAB)[address] [place] [address] [place] GLOMERULAR FILTRATION RATE ML/MIN/1.73 SQ M.PREDICTED 65.0 mL/min/1.73m*2 Normal >60.0 [facility] Comment on above: Result Comment: Calc ulation based on the Chronic Kidney Disease Epidemiology Collaboration (CKD-EPI) equation refit without adjustment for race Performed By: #### L AB103, LAB17, [id number] ####Medical Technician Assistant: LESLEE HERNANDEZ ([phone])[facility]IN[facility] [place] (SBHLAB)[address] [place] [address] [place] Glucose [Mass/Vol] 103 mg/dL High 74-100 [facility] Comment on above: Performed By: #### L AB103, LAB17, [id number] ####Medical Technician Assistant: LESLEE HERNANDEZ ([phone])[facility]INKey[facility] (SBHLAB)[address] [place] [address] [place] Potassium [Moles/Vol] 3.3 mmol/L Low 3.5-5.1 [facility] Comment on above: Result Comment: [facility] potassium values may be up to 0.5 mmol/L lower than serum values. Performed By: #### L AB103, LAB17, [id number] ####Medical Technician Assistant: LESLEE HERNANDEZ ([phone])[facility] [place] (SBHLAB)[address] Protein [Mass/Vol] 5.2 g/dL Low 6.4-8.3 [facility] Comment on above: Performed By: #### L AB103, LAB17, [id number] ####Medical Technician Assistant: LESLEE HERNANDEZ ([phone])[facility] [place] (SBHLAB)[address] Sodium [Moles/Vol] 136 mmol/L Normal 136-145 [facility] Comment on above: Performed By: #### L AB103, LAB17, [id number] ####Medical Technician Assistant: LESLEE HERNANDEZ ([phone])[facility] [place] (SBHLAB)[address] Urea nitrogen [Mass/Vol] 28 mg/dL High 8-21 [facility] Comment on above: Performed By: #### L AB103, LAB17, [id number] ####Medical Technician Assistant: LESLEE HERNANDEZ ([phone])[facility] (SBHLAB)[address] Comprehensive metabolic 1998 panelon 07-29-2024 Albumin [Mass/Vol] 2.4 g/dL Low 3.5 - 5.0 g/dL [facility] ALP [Catalytic activity/Vol] 125 U/L 40 - 150 U/L [facility] ALT [Catalytic activity/Vol] 36 U/L NINF - 40 U/L [facility] Anion gap [Moles/Vol] 8 mmol/L 3 - 13 mmol/L [facility] AST [Catalytic activity/Vol] 22 U/L NINF - 34 U/L [facility] Bilirubin [Mass/Vol] 1.2 mg/dL High NINF - 1.2 mg/dL [facility] Calcium [Mass/Vol] 6.9 mg/dL Low 8.4 - 10. 2 mg/dL [facility] Chloride [Moles/Vol] 103 mmol/L 98 - 10 7 mmol/L [facility] CO2 [Moles/Vol] 25 mmol/L 22 - 29 mmol/L [facility] Creatinine [Mass/Vol] 1.36 mg/dL High 0.72 - 1.25 mg/dL [facility] GFR/1.73 sq M.predicted (S/P/Bld) [Vol rate/Area] 65 mL/min - PINF [facility] Comment on above: Calculation based on the Chronic Kidney Disease Epidemiology Collaboration (CKD-EPI) equation refit without adjustment for race Glucose [Mass/Vol] 103 mg/dL High 74 - 100 mg/dL [facility] Interpretation and review of laboratory results Abnormal [facility] Potassium [Moles/Vol] 3.3 mmol/L Low 3.5 - 5.1 mmol/L [facility] Comment on above: Plasma potassium heidi ues may be up to 0.5 mmol/L lower than serum values. Protein [Mass/Vol] 5.2 g/dL Low 6.4 - 8.3 g/dL [facility] Sodium [Moles/Vol] 136 mmol/L 136 - 145 mmol/L [facility] Urea nitrogen [Mass/Vol] 28 mg/dL High 8 - 21 mg/dL [facility] Laboratory - Chemistry and C hemistry - challengeon 07-29-2024 Magnesium [Mass/Vol] 1.4 mg/dL Low 1.6 - 2 .6 mg/dL [facility] MAGNESIUMon 07-29-2024 Magnesium [Mass/Vol] 1.4 mg/dL Low 1.6-2.6 [facility] Comment on above: Result Comment: ALEJANDRO R COMMENTS:Higher values can be expected in females during menses. Performed By: #### L AB103, LAB17, [id number] ####Medical Technician Assistant: LESLEE HERNANDEZ ([phone])[facility] (SBAB)[address] [place] [address] Magnesium [Mass/Vol]on 07-29 Interpretation and review of laboratory results Abnormal [facility] Higher values can be expected in females during menses. [facility] NT PRO BNPon 07-29-2024 Natriuretic peptide B (Bld) [Mass/Vol] 71276 pg/mL High <125 [facility] Comment on above: Performed By: #### L AB103, LAB17, [id number] ####Medical Technician Assistant: LESLEE HERNANDEZ ([phone])[facility])[address] [place] [address] Natriuretic peptide B [Mass/ Vol]on 07-29-2024 Interpretation and review of laboratory results Abnormal [facility] Natriuretic peptide B (Bld) [Mass/Vol] 88674 pg/mL High NINF - 125 pg/mL [facility] Nursing Noteon 07-29-2024 Nursing Note Nursing went to give IV Magnesium and patient refused. Notified Lilibeth Anguiano APRN. Normal [facility] Progress Noteon 07-29-2024 Progress Note Normal [facility] Progress Note Normal [facility] Progress Note Normal [facility] 30on 07-28-2024 30 Normal [facility] 30 Normal [facility] CBC W Auto Differential pane l (Bld)on 07-28-2024 Basophils (Bld) [#/Vol] 0 10*3/uL 0.0 - 0.2 10*3/uL [facility] Basophils/100 WBC (Bld) 0.4 % 0.0 - 2.0 % [facility] Eosinophils (Bld) [#/Vol] 0.1 10*3/uL 0.0 - 0.5 10*3/uL [facility] Eosinophils/100 WBC (Bld) 1.8 % 0.0 - 6.0 % [facility] Erythrocyte distribution width (RBC) [Ratio] 13.2 % 11.5 - 15.0 % [facility] Hematocrit (Bld) [Volume fraction] 44.8 % 40.0 - 52.0 % [facility] Hemoglobin (Bld) [Mass/Vol] 14.3 g/dL 13.0 - 18.0 g/dL [facility] Immature granulocytes (Bld) [#/Vol] 0 10*3/uL NINF - 0.1 10*3/uL [facility] Immature granulocytes/100 WBC (Bld) 0.2 % 0.0 - 2.0 % [facility] Interpretation and review of laboratory results Abnormal [facility] Lymphocytes (Bld) [#/Vol] 2.2 10*3/uL 1.0 - 4.3 10*3/uL [facility] Lymphocytes/100 WBC (Bld) 38.7 % 15.0 - 45.0 % [facility] MCH (RBC) [Entitic mass] 33 pg 26.0 - 34.0 pg [facility] MCHC (RBC) [Mass/Vol] 31.9 % 30.5 - 36.0 % [facility] MCV (RBC) [Entitic vol] 103.5 fL High 77.0 - 99.0 fL [facility] Monocytes (Bld) [#/Vol] 0.5 10*3/uL 0.0 - 0.9 10*3/uL [facility] Monocytes/100 WBC (Bld) 9.7 % 5.0 - 13.0 % [facility] Neutrophils (Bld) [#/Vol] 2.8 10*3/uL 1.8 - 7.5 10*3/uL [facility] Neutrophils/100 WBC (Bld) 49.2 % 38.0 - 82.0 % [facility] Nucleated RBC/100 WBC (Bld) [Ratio] 0 % [facility] Platelet mean volume (Bld) [Entitic vol] 9 fL 9.0 - 12.7 fL [facility] Platelets (Bld) [#/Vol] 225 10*3/uL 140 - 440 10*3/uL [facility] RBC (Bld) [#/Vol] 4.33 10*6/uL Low 4.40 - 5.9 0 10*6/uL [facility] WBC (Bld) [#/Vol] 5.6 10*3/uL 3.6 - 10.7 10*3/uL [facility] CBC WITH AUTO DIFFERENTIALon 07-28-2024 Basophils (Bld) [#/Vol] 0.0 10*3/uL Normal 0.0-0.2 [facility] Comment on above: Performed By: #### L [id number] ####Medical Technician Assistant: LESLEE HERNANDEZ ([phone])[facility] (SBHLAB)[address] Basophils/100 WBC (Bld) 0.4 % Normal 0.0-2.0 [facility] Comment on above: Performed By: #### L [id number] ####Medical Technician Assistant: LESLEE HERNANDEZ ([phone])[facility] (SBHLAB)[address] Eosinophils (Bld) [#/Vol] 0.1 10*3/uL Normal 0.0-0.5 [facility] Comment on above: Performed By: #### L [id number] ####Medical Technician Assistant: LESLEE HERNANDEZ ([phone])[facility] [place] (SBHLAB)[address] Eosinophils/100 WBC (Bld) 1.8 % Normal 0.0-6.0 [facility] Comment on above: Performed By: #### L [id number] ####Medical Technician Assistant: LESLEE HERNANDEZ ([phone])[facility] [place] (SBHLAB)[address] Erythrocyte distribution width (RBC) [Ratio] 13.2 % Normal 11.5-15.0 [facility] Comment on above: Performed By: #### L [id number] ####Medical Technician Assistant: LESLEE HERNANDEZ ([phone])[facility] [place] (SBHLAB)[address] [place] [address] Hematocrit (Bld) [Volume fraction] 44.8 % Normal 40.0-52.0 [facility] Comment on above: Performed By: #### L [id number] ####Medical Technician Assistant: LESLEE HERNANDEZ ([phone])[facility] [place] (SBHLAB)[address] Hemoglobin (Bld) [Mass/Vol] 14.3 g/dL Normal 13.0-18.0 [facility] Comment on above: Performed By: #### L [id number] ####Medical Technician Assistant: LESLEE HERNANDEZ ([phone])[facility] [place] (SBHLAB)[address] IMMATURE GRANS % 0.2 % Normal 0.0-2.0 [facility] Comment on above: Performed By: #### L [id number] ####Medical Technician Assistant: LESLEE HERNANDEZ ([id number])[facility] [place] (SBHLAB)[address] IMMATURE GRANS ABSOLUTE 0.0 10*3/uL Normal <0.1 [facility] Comment on above: Performed By: #### L [id number] ####Medical Technician Assistant: LESLEE HERNANDEZ ([phone])[facility] [place] (SBHLAB)[address] Lymphocytes (Bld) [#/Vol] 2.2 10*3/uL Normal 1.0-4.3 [facility] Comment on above: Performed By: #### L [id number] ####Medical Technician Assistant: LESLEE HERNANDEZ ([phone])[facility] [place] (SBHLAB)[address] Lymphocytes/100 WBC (Bld) 38.7 % Normal 15.0-45.0 [facility] Comment on above: Performed By: #### L [id number] ####Medical Technician Assistant: LESLEE HERNANDEZ ([phone])[facility] [place] (SBHLAB)[address] MCH (RBC) [Entitic mass] 33.0 pg Normal 26.0-34.0 [facility] Comment on above: Performed By: #### L [id number] ####Medical Technician Assistant: LESLEE HERNANDEZ ([phone])[facility] [place] (SBHLAB)[address] MCHC 31.9 % Normal 30.5-36.0 [facility] Comment on above: Performed By: #### L [id number] ####Medical Technician Assistant: LESLEE HERNANDEZ ([phone])[facility] [place] (SBHLAB)[address] MCV (RBC) [Entitic vol] 103.5 fL High 77.0-99.0 [facility] Comment on above: Performed By: #### L [id number] ####Medical Technician Assistant: LESLEE HERNANDEZ ([phone])[facility] (SBHLAB)[address] Monocytes (Bld) [#/Vol] 0.5 10*3/uL Normal 0.0-0.9 [facility] Comment on above: Performed By: #### L [id number] ####Medical Technician Assistant: LESLEE HERNANDEZ ([phone])[facility] [place] (SBHLAB)[address] Monocytes/100 WBC (Bld) 9.7 % Normal 5.0-13.0 [facility] Comment on above: Performed By: #### L [id number] ####Medical Technician Assistant: LESLEE HERNANDEZ ([phone])[facility] [place] (SBHLAB)[address] NEUTROPHILS ABSOLUTE 2.8 10*3/uL Normal 1.8-7.5 [facility] Comment on above: Performed By: #### L [id number] ####Medical Technician Assistant: LESLEE HERNANDEZ ([phone])[facility] [place] (SBHLAB)[address] [place] [address] Neutrophils/100 WBC (Bld) 49.2 % Normal 38.0-82.0 [facility] Comment on above: Performed By: #### L [id number] ####Medical Technician Assistant: LESLEE HERNANDEZ ([phone])[facility] [place] (SBHLAB)[address] [place] [address] [place] NRBC 0.0 /100 WBCs Normal 0.0-2.0 [facility] Comment on above: Performed By: #### L [id number] ####Medical Technician Assistant: LESLEE HERNANDEZ ([phone])[facility] [place] (SBHLAB)[address] Platelet mean volume (Bld) [Entitic vol] 9.0 fL Normal 9.0-12.7 [facility] Comment on above: Performed By: #### L [id number] ####Medical Technician Assistant: LESLEE HERNANDEZ ([phone])[facility]IN[facility] (SBHLAB)[address] Platelets (Bld) [#/Vol] 225 10*3/uL Normal 140-440 [facility] Comment on above: Performed By: #### L [id number] ####Medical Technician Assistant: LESLEE HERNANDEZ ([phone])[facility] (SBHLAB)[address] RBC (Bld) [#/Vol] 4.33 10*6/uL Low 4.40-5.90 [facility] Comment on above: Performed By: #### L [id number] ####Medical Technician Assistant: LESLEE HERNANDEZ ([phone])[facility] (SBHLAB)[address] WBC (Bld) [#/Vol] 5.6 10*3/uL Normal 3.6-10.7 [facility] Comment on above: Performed By: #### L [id number] ####Medical Technician Assistant: LESLEE HERNANDEZ ([phone])[facility] (SBHLAB)[address] COMPREHENSIVE METABOLIC PANE Ming 07-28-2024 Albumin [Mass/Vol] 3.1 g/dL Low 3.5-5.0 [facility] Comment on above: Performed By: #### L AB103, VCM999, LAB17 ####Medical Technician Assistant: LESLEE HERNANDEZ ([phone])[facility] (SBHLAB)[address] ALP [Catalytic activity/Vol] 153 U/L High 40-150 [facility] Comment on above: Performed By: #### L AB103, [id number], LAB17 ####Medical Technician Assistant: LESLEE HERNANDEZ ([phone])[facility] (SBHLAB)[address] ALT [Catalytic activity/Vol] 49 U/L High <40 [facility] Comment on above: Performed By: #### L AB103, [id number], LAB17 ####Medical Technician Assistant: LESLEE HERNANDEZ ([phone])[facility] [place] (SBHLAB)[address] Anion gap [Moles/Vol] 10 mmol/L Normal 3-13 [facility] Comment on above: Performed By: #### L AB103, RCE543, LAB17 ####Medical Technician Assistant: LESLEE HERNANDEZ ([phone])[facility] [place] (SBHLAB)[address] AST [Catalytic activity/Vol] 26 U/L Normal <34 [facility] Comment on above: Performed By: #### L AB103, KAQ983, LAB17 ####Medical Technician Assistant: LESLEE HERNANDEZ ([phone])[facility] [place] (SBHLAB)[address] Bilirubin [Mass/Vol] 1.6 mg/dL High <1.2 [facility] Comment on above: Performed By: #### L AB103, UNT139, LAB17 ####Medical Technician Assistant: LESLEE HERNANDEZ ([phone])[facility] (SBHLAB)[address] Calcium [Mass/Vol] 8.3 mg/dL Low 8.4-10.2 [facility] Comment on above: Performed By: #### L AB103, WQP189, LAB17 ####Medical Technician Assistant: LESLEE HERNANDEZ ([phone])[facility] (SBHLAB)[address] Chloride [Moles/Vol] 99 mmol/L Normal 98-107 [facility] Comment on above: Performed By: #### L AB103, QGW477, LAB17 ####Medical Technician Assistant: LESLEE HERNANDEZ ([phone])[facility] [place] (SBHLAB)[address] [place] [address] [place] CO2 [Moles/Vol] 31 mmol/L High 22-29 [facility] Comment on above: Performed By: #### L AB103, NST572, LAB17 ####Medical Technician Assistant: LESLEE HERNANDEZ ([phone])[facility] (SBHLAB)[address] Creatinine [Mass/Vol] 1.66 mg/dL High 0.72-1.25 [facility] Comment on above: Performed By: #### L AB103, WCI307, LAB17 ####Medical Technician Assistant: LESLEE HERNANDEZ ([phone])[facility])[address] GLOMERULAR FILTRATION RATE ML/MIN/1.73 SQ M.PREDICTED 51.2 mL/min/1.73m*2 Low >60.0 [facility] Comment on above: Result Comment: Calc ulation based on the Chronic Kidney Disease Epidemiology Collaboration (CKD-EPI) equation refit without adjustment for race Performed By: #### L AB103, DET442, LAB17 ####Medical Technician Assistant: LESLEE HERNANDEZ ([phone])[facility]INKey[facility]ITALMarguer[facility] ([facility])[address] Glucose [Mass/Vol] 97 mg/dL Normal 74-100 [facility] Comment on above: Performed By: #### L AB103, MRK303, LAB17 ####Medical Technician Assistant: LESLEE HERNANDEZ ([phone])[facility] ([facility])[address] [place] [address] [place] Potassium [Moles/Vol] 3.5 mmol/L Normal 3.5-5.1 [facility] Comment on above: Result Comment: [facility] potassium values may be up to 0.5 mmol/L lower than serum values. Performed By: #### L AB103, NEQ985, LAB17 ####Medical Technician Assistant: LESLEE HERNANDEZ ([phone])[facility] [place] (SBHLAB)[address] Protein [Mass/Vol] 6.1 g/dL Low 6.4-8.3 [facility] Comment on above: Performed By: #### L AB103, QVV491, LAB17 ####Medical Technician Assistant: LESLEE HERNANDEZ ([phone])[facility]IN[facility] (SBHLAB)[address] Sodium [Moles/Vol] 140 mmol/L Normal 136-145 [facility] Comment on above: Performed By: #### L AB103, ZGN022, LAB17 ####Medical Technician Assistant: LESLEE HERNANDEZ ([phone])[facility] (SBHLAB)[address] Urea nitrogen [Mass/Vol] 29 mg/dL High 8-21 [facility] Comment on above: Performed By: #### L AB103, NVK049, LAB17 ####Medical Technician Assistant: LESLEE HERNANDEZ ([phone])[facility] (SBHLAB)[address] Comprehensive metabolic 1998 panelon 07-28-2024 Albumin [Mass/Vol] 3.1 g/dL Low 3.5 - 5.0 g/dL [facility] ALP [Catalytic activity/Vol] 153 U/L High 40 - 150 U/L [facility] ALT [Catalytic activity/Vol] 49 U/L High NINF - 40 U/L [facility] Anion gap [Moles/Vol] 10 mmol/L 3 - 13 mmol/L [facility] AST [Catalytic activity/Vol] 26 U/L NINF - 34 U/L [facility] Bilirubin [Mass/Vol] 1.6 mg/dL High NINF - 1.2 mg/dL [facility] Calcium [Mass/Vol] 8.3 mg/dL Low 8.4 - 10. 2 mg/dL [facility] Chloride [Moles/Vol] 99 mmol/L 98 - 10 7 mmol/L [facility] CO2 [Moles/Vol] 31 mmol/L High 22 - 29 mmol/L [facility] Creatinine [Mass/Vol] 1.66 mg/dL High 0.72 - 1.25 mg/dL [facility] GFR/1.73 sq M.predicted (S/P/Bld) [Vol rate/Area] 51.2 mL/min Low - PINF [facility] Comment on above: Calculation based on the Chronic Kidney Disease Epidemiology Collaboration (CKD-EPI) equation refit without adjustment for race Glucose [Mass/Vol] 97 mg/dL 74 - 100 mg/dL [facility] Interpretation and review of laboratory results Abnormal [facility] Potassium [Moles/Vol] 3.5 mmol/L 3.5 - 5.1 mmol/L [facility] Comment on above: Plasma potassium heidi ues may be up to 0.5 mmol/L lower than serum values. Protein [Mass/Vol] 6.1 g/dL Low 6.4 - 8.3 g/dL [facility] Sodium [Moles/Vol] 140 mmol/L 136 - 145 mmol/L [facility] Urea nitrogen [Mass/Vol] 29 mg/dL High 8 - 21 mg/dL [facility] Laboratory - Chemistry and C hemistry - challengeon 07-28-2024 Magnesium [Mass/Vol] 1.5 mg/dL Low 1.6 - 2 .6 mg/dL [facility] MAGNESIUMon 07-28-2024 Magnesium [Mass/Vol] 1.5 mg/dL Low 1.6-2.6 [facility] Comment on above: Result Comment: ALEJANDRO Aleman COMMENTS:Higher values can be expected in females during menses. Performed By: #### L [id number], [id number], [id number] ####Medical Technician Assistant: LESLEE HERNANDEZ ([phone])[facility] ([address] Magnesium [Mass/Vol]on 07-28 Interpretation and review of laboratory results Abnormal [facility] Higher values can be expected in females during menses. [facility] Medical Studenton 07-28-2024 Medical Student Normal [facility] NT PRO BNPon 07-28-2024 Natriuretic peptide B (Bld) [Mass/Vol] 60599 pg/mL High <125 [facility] Comment on above: Performed By: #### L [id number], [id number], [id number] ####Medical Technician Assistant: LESLEE HERNANDEZ ([phone])[facility] JENNY (SBHLAB)[address] [place] [address] Natriuretic peptide B [Mass/ Vol]on 07-28-2024 Interpretation and review of laboratory results Abnormal [facility] Natriuretic peptide B (Bld) [Mass/Vol] 23315 pg/mL High NINF - 125 pg/mL [facility] Progress Noteon 07-28-2024 Progress Note Normal [facility] Progress Note Normal [facility] 30on 07-27-2024 30 Normal [facility] [id number] 07-27-2024 [id number] Normal [facility] CBC W Auto Differential pane l (Bld)on 07-27-2024 Basophils (Bld) [#/Vol] 0 10*3/uL 0.0 - 0.2 10*3/uL [facility] Basophils/100 WBC (Bld) 0.4 % 0.0 - 2.0 % [facility] Eosinophils (Bld) [#/Vol] 0.1 10*3/uL 0.0 - 0.5 10*3/uL [facility] Eosinophils/100 WBC (Bld) 1.4 % 0.0 - 6.0 % [facility] Erythrocyte distribution width (RBC) [Ratio] 13.3 % 11.5 - 15.0 % [facility] Hematocrit (Bld) [Volume fraction] 42.4 % 40.0 - 52.0 % [facility] Hemoglobin (Bld) [Mass/Vol] 13.8 g/dL 13.0 - 18.0 g/dL [facility] Immature granulocytes (Bld) [#/Vol] 0 10*3/uL NINF - 0.1 10*3/uL [facility] Immature granulocytes/100 WBC (Bld) 0.4 % 0.0 - 2.0 % [facility] Interpretation and review of laboratory results Abnormal [facility] Lymphocytes (Bld) [#/Vol] 1.8 10*3/uL 1.0 - 4.3 10*3/uL [facility] Lymphocytes/100 WBC (Bld) 31.2 % 15.0 - 45.0 % [facility] MCH (RBC) [Entitic mass] 33.2 pg 26.0 - 34.0 pg [facility] MCHC (RBC) [Mass/Vol] 32.5 % 30.5 - 36.0 % [facility] MCV (RBC) [Entitic vol] 101.9 fL High 77.0 - 99.0 fL [facility] Monocytes (Bld) [#/Vol] 0.5 10*3/uL 0.0 - 0.9 10*3/uL [facility] Monocytes/100 WBC (Bld) 9.4 % 5.0 - 13.0 % [facility] Neutrophils (Bld) [#/Vol] 3.2 10*3/uL 1.8 - 7.5 10*3/uL [facility] Neutrophils/100 WBC (Bld) 57.2 % 38.0 - 82.0 % [facility] Nucleated RBC/100 WBC (Bld) [Ratio] 0 % [facility] Platelet mean volume (Bld) [Entitic vol] 9.2 fL 9.0 - 12.7 fL [facility] Platelets (Bld) [#/Vol] 241 10*3/uL 140 - 440 10*3/uL [facility] RBC (Bld) [#/Vol] 4.16 10*6/uL Low 4.40 - 5.9 0 10*6/uL [facility] WBC (Bld) [#/Vol] 5.7 10*3/uL 3.6 - 10.7 10*3/uL [facility] CBC WITH AUTO DIFFERENTIALon 07-27-2024 Basophils (Bld) [#/Vol] 0.0 10*3/uL Normal 0.0-0.2 [facility] Comment on above: Performed By: #### L [id number] ####Medical Technician Assistant: LESLEE HERNANDEZ ([phone])[facility] (SBHLAB)[address] Basophils/100 WBC (Bld) 0.4 % Normal 0.0-2.0 [facility] Comment on above: Performed By: #### L [id number] ####Medical Technician Assistant: LESLEE HERNANDEZ ([phone])[facility] (SBHL[facility])[address] [place] [address] [place] Eosinophils (Bld) [#/Vol] 0.1 10*3/uL Normal 0.0-0.5 [facility] Comment on above: Performed By: #### L [id number] ####Medical Technician Assistant: LESLEE TURKTYRONE ([phone])[facility] Eosinophils/100 WBC (Bld) 1.4 % Normal 0.0-6.0 [facility] Comment on above: Performed By: #### L [id number] ####Medical Technician Assistant: LESLEE TURKTYRONE ([phone])[facility] ([facility])[address] Erythrocyte distribution width (RBC) [Ratio] 13.3 % Normal 11.5-15.0 [facility] Comment on above: Performed By: #### L [id number] ####Medical Technician Assistant: LESLEE TURKTYRONE ([phone])[facility] ([facility])[address] [place] [address] Hematocrit (Bld) [Volume fraction] 42.4 % Normal 40.0-52.0 [facility] Comment on above: Performed By: #### L [id number] ####Medical Technician Assistant: LESLEE HERNANDEZ ([phone])[facility] ([facility])[address] [place] [address] Hemoglobin (Bld) [Mass/Vol] 13.8 g/dL Normal 13.0-18.0 [facility] Comment on above: Performed By: #### L [id number] ####Medical Technician Assistant: LESLEE HERNANDEZ ([phone])[facility] IMMATURE GRANS % 0.4 % Normal 0.0-2.0 [facility] Comment on above: Performed By: #### L [id number] ####Medical Technician Assistant: LESLEE HERNANDEZ ([phone])[facility])[address] IMMATURE GRANS ABSOLUTE 0.0 10*3/uL Normal <0.1 [facility] Comment on above: Performed By: #### L [id number] ####Medical Technician Assistant: LESLEE HERNANDEZ ([phone])[facility] [place] (SBHLAB)[address] Lymphocytes (Bld) [#/Vol] 1.8 10*3/uL Normal 1.0-4.3 [facility] Comment on above: Performed By: #### L [id number] ####Medical Technician Assistant: LESLEE HERNANDEZ ([phone])[facility] (SBHLAB)[address] Lymphocytes/100 WBC (Bld) 31.2 % Normal 15.0-45.0 [facility] Comment on above: Performed By: #### L [id number] ####Medical Technician Assistant: LESLEE HERNANDEZ ([phone])[facility] [place] (SBHLAB)[address] MCH (RBC) [Entitic mass] 33.2 pg Normal 26.0-34.0 [facility] Comment on above: Performed By: #### L [id number] ####Medical Technician Assistant: LESLEE HERNANDEZ ([phone])[facility] (SBHLAB)[address] [place] [address] MCHC 32.5 % Normal 30.5-36.0 [facility] Comment on above: Performed By: #### L [id number] ####Medical Technician Assistant: LESLEE HERNANDEZ ([phone])[facility] [place] (SBHLAB)[address] MCV (RBC) [Entitic vol] 101.9 fL High 77.0-99.0 [facility] Comment on above: Performed By: #### L [id number] ####Medical Technician Assistant: LESLEE HERNANDEZ ([phone])[facility] [place] (SBHLAB)[address] Monocytes (Bld) [#/Vol] 0.5 10*3/uL Normal 0.0-0.9 [facility] Comment on above: Performed By: #### L [id number] ####Medical Technician Assistant: LESLEE HERNANDEZ ([phone])[facility] [place] (SBHLAB)[address] Monocytes/100 WBC (Bld) 9.4 % Normal 5.0-13.0 [facility] Comment on above: Performed By: #### L [id number] ####Medical Technician Assistant: LESLEE HERNANDEZ ([phone])[facility] [place] (SBHLAB)[address] NEUTROPHILS ABSOLUTE 3.2 10*3/uL Normal 1.8-7.5 [facility] Comment on above: Performed By: #### L [id number] ####Medical Technician Assistant: LESLEE HERNANDEZ ([phone])[facility] [place] (SBHLAB)[address] Neutrophils/100 WBC (Bld) 57.2 % Normal 38.0-82.0 [facility] Comment on above: Performed By: #### L [id number] ####Medical Technician Assistant: LESLEE HERNANDEZ ([phone])[facility] [place] (SBHLAB)[address] NRBC 0.0 /100 WBCs Normal 0.0-2.0 [facility] Comment on above: Performed By: #### L [id number] ####Medical Technician Assistant: LESLEE HERNANDEZ ([phone])[facility] [place] (SBHLAB)[address] Platelet mean volume (Bld) [Entitic vol] 9.2 fL Normal 9.0-12.7 [facility] Comment on above: Performed By: #### L [id number] ####Medical Technician Assistant: LESLEE HERNANDEZ ([phone])[facility] [place] (SBHLAB)[address] [place] [address] [place] Platelets (Bld) [#/Vol] 241 10*3/uL Normal 140-440 [facility] Comment on above: Performed By: #### L [id number] ####Medical Technician Assistant: LESLEE HERNANDEZ ([phone])[facility] [place] (SBHLAB)[address] RBC (Bld) [#/Vol] 4.16 10*6/uL Low 4.40-5.90 [facility] Comment on above: Performed By: #### L [id number] ####Medical Technician Assistant: LESLEE HERNANDEZ ([phone])[facility] [place] (SBHLAB)[address] WBC (Bld) [#/Vol] 5.7 10*3/uL Normal 3.6-10.7 [facility] Comment on above: Performed By: #### L [id number] ####Medical Technician Assistant: LESLEE HERNANDEZ ([phone])[facility] [place] (SBHLAB)[address] COMPREHENSIVE METABOLIC PANE Ming 07-27-2024 Albumin [Mass/Vol] 3.1 g/dL Low 3.5-5.0 [facility] Comment on above: Performed By: #### L AB17, [id number] ####Medical Technician Assistant: LESLEE HERNANDEZ ([phone])[facility] [place] (SBHLAB)[address] ALP [Catalytic activity/Vol] 175 U/L High 40-150 [facility] Comment on above: Performed By: #### L AB17, [id number] ####Medical Technician Assistant: LESLEE HERNANDEZ ([phone])[facility] [place] (SBHLAB)[address] ALT [Catalytic activity/Vol] 60 U/L High <40 [facility] Comment on above: Performed By: #### L AB17, [id number] ####Medical Technician Assistant: LESLEE HERNANDEZ ([phone])[facility] [place] (SBHLAB)[address] Anion gap [Moles/Vol] 14 mmol/L High 3-13 [facility] Comment on above: Performed By: #### L AB17, [id number] ####Medical Technician Assistant: LESLEE HERNANDEZ ([phone])[facility] [place] (SBHLAB)[address] AST [Catalytic activity/Vol] 31 U/L Normal <34 [facility] Comment on above: Performed By: #### L AB17, [id number] ####Medical Technician Assistant: LESLEE HERNANDEZ ([id number])[facility] [place] (SBHLAB)[address] Bilirubin [Mass/Vol] 1.3 mg/dL High <1.2 [facility] Comment on above: Performed By: #### L AB17, [id number] ####Medical Technician Assistant: LESLEE HERNANDEZ ([phone])[facility] [place] (SBHLAB)[address] Calcium [Mass/Vol] 8.4 mg/dL Normal 8.4-10.2 [facility] Comment on above: Performed By: #### L AB17, [id number] ####Medical Technician Assistant: LESLEE HERNANDEZ ([phone])[facility] [place] (SBHLAB)[address] Chloride [Moles/Vol] 102 mmol/L Normal 98-107 [facility] Comment on above: Performed By: #### L AB17, [id number] ####Medical Technician Assistant: LESLEE HERNANDEZ ([phone])[facility] [place] (SBHLAB)[address] [place] [address] [place] CO2 [Moles/Vol] 24 mmol/L Normal 22-29 [facility] Comment on above: Performed By: #### L AB17, [id number] ####Medical Technician Assistant: LESLEE HERNANDEZ ([phone])[facility] [place] (SBHLAB)[address] [place] [address] [place] Creatinine [Mass/Vol] 1.84 mg/dL High 0.72-1.25 [facility] Comment on above: Performed By: #### L AB17, [id number] ####Medical Technician Assistant: LESLEE HERNANDEZ ([phone])[facility] [place] ([facility])[address] GLOMERULAR FILTRATION RATE ML/MIN/1.73 SQ M.PREDICTED 45.2 mL/min/1.73m*2 Low >60.0 [facility] Comment on above: Result Comment: Calc ulation based on the Chronic Kidney Disease Epidemiology Collaboration (CKD-EPI) equation refit without adjustment for race Performed By: #### L AB17, [id number] ####Medical Technician Assistant: LESLEE HERNANDEZ ([phone])[facility] [place] ([facility])[address] Glucose [Mass/Vol] 95 mg/dL Normal 74-100 [facility] Comment on above: Performed By: #### L AB17, [id number] ####Medical Technician Assistant: LESLEE HERNANDEZ ([phone])[facility] ([facility])[address] [place] [address] Potassium [Moles/Vol] 3.6 mmol/L Normal 3.5-5.1 [facility] Comment on above: Result Comment: [facility] potassium values may be up to 0.5 mmol/L lower than serum values. Performed By: #### L AB17, [id number] ####Medical Technician Assistant: LESLEE HERNANDEZ ([phone])[facility] [place] (SBHLAB)[address] [place] [address] [place] Protein [Mass/Vol] 6.3 g/dL Low 6.4-8.3 [facility] Comment on above: Performed By: #### L AB17, [id number] ####Medical Technician Assistant: LESLEE HERNANDEZ ([phone])[facility])[address] Sodium [Moles/Vol] 140 mmol/L Normal 136-145 [facility] Comment on above: Performed By: #### L AB17, [id number] ####Medical Technician Assistant: LESLEE HERNANDEZ ([phone])[facility] (SBHLAB)[address] Urea nitrogen [Mass/Vol] 35 mg/dL High 8-21 [facility] Comment on above: Performed By: #### L AB17, [id number] ####Medical Technician Assistant: LESLEE HERNANDEZ ([phone])[facility] (SBHLAB)[address] Comprehensive metabolic 1998 panelon 07-27-2024 Albumin [Mass/Vol] 3.1 g/dL Low 3.5 - 5.0 g/dL [facility] ALP [Catalytic activity/Vol] 175 U/L High 40 - 150 U/L [facility] ALT [Catalytic activity/Vol] 60 U/L High NINF - 40 U/L [facility] Anion gap [Moles/Vol] 14 mmol/L High 3 - 13 mmol/L [facility] AST [Catalytic activity/Vol] 31 U/L NINF - 34 U/L [facility] Bilirubin [Mass/Vol] 1.3 mg/dL [facility] mg/dL [facility] Calcium [Mass/Vol] 8.4 mg/dL 8.4 - 10. 2 mg/dL [facility] Chloride [Moles/Vol] 102 mmol/L 98 - 10 7 mmol/L [facility] CO2 [Moles/Vol] 24 mmol/L 22 - 29 mmol/L [facility] Creatinine [Mass/Vol] 1.84 mg/dL High 0.72 - 1.25 mg/dL [facility] GFR/1.73 sq M.predicted (S/P/Bld) [Vol rate/Area] 45.2 mL/min Low - PINF [facility] Comment on above: Calculation based on the Chronic Kidney Disease Epidemiology Collaboration (CKD-EPI) equation refit without adjustment for race Glucose [Mass/Vol] 95 mg/dL 74 - 100 mg/dL [facility] Interpretation and review of laboratory results Abnormal [facility] Potassium [Moles/Vol] 3.6 mmol/L 3.5 - 5.1 mmol/L [facility] Comment on above: Plasma potassium heidi ues may be up to 0.5 mmol/L lower than serum values. Protein [Mass/Vol] 6.3 g/dL Low 6.4 - 8.3 g/dL [facility] Sodium [Moles/Vol] 140 mmol/L 136 - 145 mmol/L [facility] Urea nitrogen [Mass/Vol] 35 mg/dL High 8 - 21 mg/dL [facility] Medical Studenton 07-27-2024 Medical Student Normal [facility] NT PRO BNPon 07-27-2024 Natriuretic peptide B (Bld) [Mass/Vol] 97831 pg/mL High <125 [facility] Comment on above: Performed By: #### L AB17, [id number] ####Medical Technician Assistant: LESLEE HERNANDEZ ([phone])[facility] J[facility]NY (SBAB)[address] [place] [address] Natriuretic peptide B [Mass/ Vol]on 07-27-2024 Interpretation and review of laboratory results Abnormal [facility] Natriuretic peptide B (Bld) [Mass/Vol] 00718 pg/mL High NINF - 125 pg/mL [facility] Progress Noteon 07-27-2024 Progress Note Normal [facility] Progress Note Normal [facility] Progress Note Normal [facility] [id number] 07-26-2024 [id number] Normal [facility] 30on 07-26-2024 30 Normal [facility] 30 Normal [facility] CBC W Auto Differential pane l (Bld)on 07-26-2024 Basophils (Bld) [#/Vol] 0 10*3/uL 0.0 - 0.2 10*3/uL [facility] Basophils/100 WBC (Bld) 0.4 % 0.0 - 2.0 % [facility] Eosinophils (Bld) [#/Vol] 0.1 10*3/uL 0.0 - 0.5 10*3/uL [facility] Eosinophils/100 WBC (Bld) 1.5 % 0.0 - 6.0 % [facility] Erythrocyte distribution width (RBC) [Ratio] 13.4 % 11.5 - 15.0 % [facility] Hematocrit (Bld) [Volume fraction] 43 % 40.0 - 52.0 % [facility] Hemoglobin (Bld) [Mass/Vol] 14.1 g/dL 13.0 - 18.0 g/dL [facility] Immature granulocytes (Bld) [#/Vol] 0 10*3/uL NINF - 0.1 10*3/uL [facility] Immature granulocytes/100 WBC (Bld) 0.2 % 0.0 - 2.0 % [facility] Interpretation and review of laboratory results Abnormal [facility] Lymphocytes (Bld) [#/Vol] 1.8 10*3/uL 1.0 - 4.3 10*3/uL [facility] Lymphocytes/100 WBC (Bld) 33 % 15.0 - 45.0 % [facility] MCH (RBC) [Entitic mass] 33.3 pg 26.0 - 34.0 pg [facility] MCHC (RBC) [Mass/Vol] 32.8 % 30.5 - 36.0 % [facility] MCV (RBC) [Entitic vol] 101.4 fL High 77.0 - 99.0 fL [facility] Monocytes (Bld) [#/Vol] 0.4 10*3/uL 0.0 - 0.9 10*3/uL [facility] Monocytes/100 WBC (Bld) 6.9 % 5.0 - 13.0 % [facility] Neutrophils (Bld) [#/Vol] 3.2 10*3/uL 1.8 - 7.5 10*3/uL [facility] Neutrophils/100 WBC (Bld) 58 % 38.0 - 82.0 % [facility] Nucleated RBC/100 WBC (Bld) [Ratio] 0 % [facility] Platelet mean volume (Bld) [Entitic vol] 9.6 fL 9.0 - 12.7 fL [facility] Platelets (Bld) [#/Vol] 240 10*3/uL 140 - 440 10*3/uL [facility] RBC (Bld) [#/Vol] 4.24 10*6/uL Low 4.40 - 5.9 0 10*6/uL [facility] WBC (Bld) [#/Vol] 5.5 10*3/uL 3.6 - 10.7 10*3/uL [facility] CBC WITH AUTO DIFFERENTIALon 07-26-2024 Basophils (Bld) [#/Vol] 0.0 10*3/uL Normal 0.0-0.2 [facility] Comment on above: Performed By: #### L [id number] ####Medical Technician Assistant: LESLEE HERNANDEZ ([phone])[facility] [place] (SBHLAB)[address] Basophils/100 WBC (Bld) 0.4 % Normal 0.0-2.0 [facility] Comment on above: Performed By: #### L [id number] ####Medical Technician Assistant: LESLEE HERNANDEZ ([phone])[facility] [place] (SBHLAB)[address] Eosinophils (Bld) [#/Vol] 0.1 10*3/uL Normal 0.0-0.5 [facility] Comment on above: Performed By: #### L [id number] ####Medical Technician Assistant: LESLEE TURKTYRONE ([phone])[facility] [place] ([facility])[address] [place] [address] Eosinophils/100 WBC (Bld) 1.5 % Normal 0.0-6.0 [facility] Comment on above: Performed By: #### L [id number] ####Medical Technician Assistant: LESLEE HERNANDEZ ([phone])[facility] ([facility])[address] [place] [address] Erythrocyte distribution width (RBC) [Ratio] 13.4 % Normal 11.5-15.0 [facility] Comment on above: Performed By: #### L [id number] ####Medical Technician Assistant: LESLEE HERNANDEZ ([phone])[facility] ([facility])[address] [place] [address] Hematocrit (Bld) [Volume fraction] 43.0 % Normal 40.0-52.0 [facility] Comment on above: Performed By: #### L [id number] ####Medical Technician Assistant: LESLEE HERNANDEZ ([phone])[facility] ([facility])[address] [place] [address] Hemoglobin (Bld) [Mass/Vol] 14.1 g/dL Normal 13.0-18.0 [facility] Comment on above: Performed By: #### L [id number] ####Medical Technician Assistant: LESLEE HERNANDEZ ([phone])[facility] ([facility] [place] [address] IMMATURE GRANS % 0.2 % Normal 0.0-2.0 [facility] Comment on above: Performed By: #### L [id number] ####Medical Technician Assistant: LESLEE HERNANDEZ ([phone])[facility])[address] [place] [address] IMMATURE GRANS ABSOLUTE 0.0 10*3/uL Normal <0.1 [facility] Comment on above: Performed By: #### L [id number] ####Medical Technician Assistant: LESLEE HERNANDEZ ([phone])[facility] ([facility])[address] [place] [address] Lymphocytes (Bld) [#/Vol] 1.8 10*3/uL Normal 1.0-4.3 [facility] Comment on above: Performed By: #### L [id number] ####Medical Technician Assistant: LESLEE HERNANDEZ ([phone])[facility] ([facility])[address] [place] [address] Lymphocytes/100 WBC (Bld) 33.0 % Normal 15.0-45.0 [facility] Comment on above: Performed By: #### L [id number] ####Medical Technician Assistant: LESLEE HERNANDEZ ([phone])[facility] [place] [address] MCH (RBC) [Entitic mass] 33.3 pg Normal 26.0-34.0 [facility] Comment on above: Performed By: #### L [id number] ####Medical Technician Assistant: LESLEE HERNANDEZ ([phone])[facility] [place] [address] MCHC 32.8 % Normal 30.5-36.0 [facility] Comment on above: Performed By: #### L [id number] ####Medical Technician Assistant: LESLEE MCNEILLNinoskaTYRONE ([phone])[facility] [place] (SBHLAB)[address] MCV (RBC) [Entitic vol] 101.4 fL High 77.0-99.0 [facility] Comment on above: Performed By: #### L [id number] ####Medical Technician Assistant: LESLEE MARY ([phone])[facility] ([facility])[address] Monocytes (Bld) [#/Vol] 0.4 10*3/uL Normal 0.0-0.9 [facility] Comment on above: Performed By: #### L [id number] ####Medical Technician Assistant: LESLEE MARY ([phone])[facility] [place] ([facility])[address] Monocytes/100 WBC (Bld) 6.9 % Normal 5.0-13.0 [facility] Comment on above: Performed By: #### L [id number] ####Medical Technician Assistant: LESLEE MCNEILLRAMON ([phone])[facility] [facility] [place] ([facility])[address] NEUTROPHILS ABSOLUTE 3.2 10*3/uL Normal 1.8-7.5 [facility] Comment on above: Performed By: #### L [id number] ####Medical Technician Assistant: LESLEE TURKTYRONE ([phone])[facility] [place] ([facility])[address] Neutrophils/100 WBC (Bld) 58.0 % Normal 38.0-82.0 [facility] Comment on above: Performed By: #### L [id number] ####Medical Technician Assistant: LESLEE TURKTYRONE ([phone])[facility] [place] ([facility])[address] NRBC 0.0 /100 WBCs Normal 0.0-2.0 [facility] Comment on above: Performed By: #### L [id number] ####Medical Technician Assistant: LESLEE TURKTYRONE ([phone])[place] ([facility])[address] Platelet mean volume (Bld) [Entitic vol] 9.6 fL Normal 9.0-12.7 [facility] Comment on above: Performed By: #### L [id number] ####Medical Technician Assistant: LESLEE HERNANDEZ ([phone])[facility] [place] ([facility])[address] Platelets (Bld) [#/Vol] 240 10*3/uL Normal 140-440 [facility] Comment on above: Performed By: #### L [id number] ####Medical Technician Assistant: LESLEE TURKTYRONE ([phone])[facility] [place] ([facility])[address] RBC (Bld) [#/Vol] 4.24 10*6/uL Low 4.40-5.90 [facility] Comment on above: Performed By: #### L [id number] ####Medical Technician Assistant: LESLEE HERNANDEZ ([phone])[facility] [place] ([facility])[address] WBC (Bld) [#/Vol] 5.5 10*3/uL Normal 3.6-10.7 [facility] Comment on above: Performed By: #### L [id number] ####Medical Technician Assistant: LESLEE HERNANDEZ ([phone])[facility] [place] ([facility])[address] COMPREHENSIVE METABOLIC PANE Ming 07-26-2024 Albumin [Mass/Vol] 2.9 g/dL Low 3.5-5.0 [facility] Comment on above: Performed By: #### L AB17, [id number], [id number] ####Medical Technician Assistant: LESLEE HERNANDEZ ([phone])[facility] [place] ([facility])[address] ALP [Catalytic activity/Vol] 166 U/L High 40-150 [facility] Comment on above: Performed By: #### L AB17, [id number], [id number] ####Medical Technician Assistant: LESLEE HERNANDEZ ([phone])[facility] [place] ([facility])[address] ALT [Catalytic activity/Vol] 57 U/L High <40 [facility] Comment on above: Performed By: #### L AB17, [id number], [id number] ####Medical Technician Assistant: LESLEE HERNANDEZ ([phone])[facility] [place] ([facility])[address] Anion gap [Moles/Vol] 12 mmol/L Normal 3-13 [facility] Comment on above: Performed By: #### L AB17, [id number], [id number] ####Medical Technician Assistant: LESLEE HERNANDEZ ([phone])[facility] ([facility])[address] AST [Catalytic activity/Vol] 27 U/L Normal <34 [facility] Comment on above: Performed By: #### L AB17, [id number], [id number] ####Medical Technician Assistant: LESLEE HERNANDEZ ([phone])[facility] [place] ([facility])[address] Bilirubin [Mass/Vol] 1.4 mg/dL High <1.2 [facility] Comment on above: Performed By: #### L AB17, [id number], [id number] ####Medical Technician Assistant: LESLEE HERNANDEZ ([phone])[facility] [place] ([facility])155 [place] [address] [place] Calcium [Mass/Vol] 8.5 mg/dL Normal 8.4-10.2 [facility] Comment on above: Performed By: #### L AB17, [id number], ZPR046 ####Medical Technician Assistant: LESLEE HERNANDEZ ([phone])[facility] ([facility])[address] [place] [address] [place] Chloride [Moles/Vol] 103 mmol/L Normal 98-107 [facility] Comment on above: Performed By: #### L AB17, [id number], [id number] ####Medical Technician Assistant: LESLEE HERNANDEZ ([phone])[facility] (SBHLAB)[address] CO2 [Moles/Vol] 23 mmol/L Normal 22-29 [facility] Comment on above: Performed By: #### L AB17, [id number], PRJ003 ####Medical Technician Assistant: LESLEE HERNANDEZ ([phone])[facility] (SBHLAB)[address] Creatinine [Mass/Vol] 2.14 mg/dL High 0.72-1.25 [facility] Comment on above: Performed By: #### L AB17, [id number], [id number] ####Medical Technician Assistant: LESLEE HERNANDEZ ([phone])[facility] (SBHL[facility])[address] GLOMERULAR FILTRATION RATE ML/MIN/1.73 SQ M.PREDICTED 37.7 mL/min/1.73m*2 Low >60.0 [facility] Comment on above: Result Comment: Calc ulation based on the Chronic Kidney Disease Epidemiology Collaboration (CKD-EPI) equation refit without adjustment for race Performed By: #### L AB17, [id number], MBV119 ####Medical Technician Assistant: LESLEE HERNANDEZ ([phone])[facility] (SBHLAB)[address] Glucose [Mass/Vol] 114 mg/dL High 74-100 [facility] Comment on above: Performed By: #### L AB17, [id number], BSO611 ####Medical Technician Assistant: LESLEE HERNANDEZ ([phone])[facility] (SBAB)[address] Potassium [Moles/Vol] 3.4 mmol/L Low 3.5-5.1 [facility] Comment on above: Result Comment: [facility] potassium values may be up to 0.5 mmol/L lower than serum values. Performed By: #### L AB17, [id number], [id number] ####Medical Technician Assistant: LESLEE MCNEILLRAMON ([phone])[facility] ([facility])[address] Protein [Mass/Vol] 5.9 g/dL Low 6.4-8.3 [facility] Comment on above: Performed By: #### L AB17, [id number], ZIV561 ####Medical Technician Assistant: LESLEE HERNANDEZ ([phone])[facility] ([facility])[address] Sodium [Moles/Vol] 138 mmol/L Normal 136-145 [facility] Comment on above: Performed By: #### L AB17, [id number], [id number] ####Medical Technician Assistant: LESLEE TURKTYRONE ([phone])[facility] (SBHLAB)[address] [place] [address] Urea nitrogen [Mass/Vol] 40 mg/dL High 8-21 [facility] Comment on above: Performed By: #### L AB17, [id number], [id number] ####Medical Technician Assistant: LESLEE HERNANDEZ ([phone])[facility] ([facility])[address] [place] [address] Comprehensive metabolic 1998 panelon 07-26-2024 Albumin [Mass/Vol] 2.9 g/dL Low 3.5 - 5.0 g/dL [facility] ALP [Catalytic activity/Vol] 166 U/L High 40 - 150 U/L [facility] ALT [Catalytic activity/Vol] 57 U/L High NINF - 40 U/L [facility] Anion gap [Moles/Vol] 12 mmol/L 3 - 13 mmol/L [facility] AST [Catalytic activity/Vol] 27 U/L NINF - 34 U/L [facility] Bilirubin [Mass/Vol] 1.4 mg/dL High NINF - 1.2 mg/dL [facility] Calcium [Mass/Vol] 8.5 mg/dL 8.4 - 10. 2 mg/dL [facility] Chloride [Moles/Vol] 103 mmol/L 98 - 10 7 mmol/L [facility] CO2 [Moles/Vol] 23 mmol/L 22 - 29 mmol/L [facility] Creatinine [Mass/Vol] 2.14 mg/dL High 0.72 - 1.25 mg/dL [facility] GFR/1.73 sq M.predicted (S/P/Bld) [Vol rate/Area] 37.7 mL/min Low - PINF [facility] Comment on above: Calculation based on the Chronic Kidney Disease Epidemiology Collaboration (CKD-EPI) equation refit without adjustment for race Glucose [Mass/Vol] 114 mg/dL High 74 - 100 mg/dL [facility] Interpretation and review of laboratory results Abnormal [facility] Potassium [Moles/Vol] 3.4 mmol/L Low 3.5 - 5.1 mmol/L [facility] Comment on above: Plasma potassium heidi ues may be up to 0.5 mmol/L lower than serum values. Protein [Mass/Vol] 5.9 g/dL Low 6.4 - 8.3 g/dL [facility] Sodium [Moles/Vol] 138 mmol/L 136 - 145 mmol/L [facility] Urea nitrogen [Mass/Vol] 40 mg/dL High 8 - 21 mg/dL [facility] Consulton 07-26-2024 Consult Normal [facility] Laboratory - Chemistry and C hemistry - challengeon 07-26-2024 Magnesium [Mass/Vol] 1.8 mg/dL 1.6 - 2 .6 mg/dL [facility] MAGNESIUMon 07-26-2024 Magnesium [Mass/Vol] 1.8 mg/dL Normal 1.6-2.6 [facility] Comment on above: Result Comment: ALEJANDRO Aleman COMMENTS:Higher values can be expected in females during menses. Performed By: #### L AB17, [id number], [id number] ####Medical Technician Assistant: LESLEE HERNANDEZ ([phone])[facility] (SBAB)[address] [place] [address] Magnesium [Mass/Vol]on 07-26 Interpretation and review of laboratory results Normal [facility] Higher values can be expected in females during menses. [facility] Medical Studenton 07-26-2024 Medical Student Normal [facility] NT PRO BNPon 07-26-2024 Natriuretic peptide B (Bld) [Mass/Vol] 17434 pg/mL High <125 [facility] Comment on above: Performed By: #### L AB17, [id number], ROP194 ####Medical Technician Assistant: LESLEE HERNANDEZ ([phone])[facility] ([facility])[address] [place] [address] Natriuretic peptide B [Mass/ Vol]on 07-26-2024 Interpretation and review of laboratory results Abnormal [facility] Natriuretic peptide B (Bld) [Mass/Vol] 67855 pg/mL High NINF - 125 pg/mL [facility] Nursing Noteon 07-26-2024 Nursing Note Pt refusing carvedilol and potassium at this time, states he doesn't take meds until 2099. Medication moved to 2099. Normal [facility] Nursing Note Normal [facility] Nursing Note Normal [facility] Nursing Note Attempted to draw la b but patient refused at this time.informed the provider.Electronical ly signed by Osiris Huber RN Normal [facility] Progress Noteon 07-26-2024 Progress Note Normal [facility] Progress Note Normal [facility] [id number] 07-25-2024 [id number] [facility] Consulton 07-25-2024 Consult Normal [facility] Nursing Noteon 07-25-2024 Nursing Note Attempted to draw la b but patient is refusing to draw lab.Informed the doctor. Normal [facility] Progress Noteon 07-25-2024 Progress Note Normal [facility] Progress Note Normal [facility] Progress Note Normal [facility] Progress Note Nutrition rescreen complete. Pt assigned a level one for nutrition care. Normal [facility] 30on 07-24-2024 30 Normal [facility] 30 Normal [facility] BASIC METABOLIC PANELon 07-01 Anion gap [Moles/Vol] 10 mmol/L Normal 3-13 [facility] Comment on above: Performed By: #### L AB15, [id number], [id number] ####Medical Technician Assistant: LESLEE HERNANDEZ ([phone])[facility] ([facility])[address] Calcium [Mass/Vol] 8.5 mg/dL Normal 8.4-10.2 [facility] Comment on above: Performed By: #### L AB15, [id number], MHD840 ####Medical Technician Assistant: LESLEE HERNANDEZ ([phone])[facility] [place] ([facility])[address] Chloride [Moles/Vol] 108 mmol/L High 98-107 [facility] Comment on above: Performed By: #### L AB15, CXW316, GJQ671 ####Medical Technician Assistant: LESLEE HERNANDEZ ([phone])[facility] [place] ([facility])[address] CO2 [Moles/Vol] 20 mmol/L Low 22-29 [facility] Comment on above: Performed By: #### L AB15, [id number], GSA184 ####Medical Technician Assistant: LESLEE HERNANDEZ ([phone])[facility] [place] ([facility])[address] Creatinine [Mass/Vol] 2.19 mg/dL High 0.72-1.25 [facility] Comment on above: Performed By: #### L AB15, OZQ573, OYJ563 ####Medical Technician Assistant: LESLEE HERNANDEZ ([phone])[facility] [place] (SBHLAB)[address] [place] [address] [place] GLOMERULAR FILTRATION RATE ML/MIN/1.73 SQ M.PREDICTED 36.7 mL/min/1.73m*2 Low >60.0 [facility] Comment on above: Result Comment: Calc ulation based on the Chronic Kidney Disease Epidemiology Collaboration (CKD-EPI) equation refit without adjustment for race Performed By: #### L AB15, XNW259, KIG227 ####Medical Technician Assistant: LESLEE HERNANDEZ ([phone])[facility] [place] ([facility])[address] [place] [address] [place] Glucose [Mass/Vol] 108 mg/dL High 74-100 [facility] Comment on above: Performed By: #### L AB15, [id number], AYA319 ####Medical Technician Assistant: LESLEE HERNANDEZ ([phone])[facility] [place] ([facility])[address] Potassium [Moles/Vol] 4.3 mmol/L Normal 3.5-5.1 [facility] Comment on above: Result Comment: [facility] potassium values may be up to 0.5 mmol/L lower than serum values. Performed By: #### L AB15, HAE474, SPS942 ####Medical Technician Assistant: LESLEE HERNANDEZ ([phone])[facility] [place] ([facility])[address] Sodium [Moles/Vol] 138 mmol/L Normal 136-145 [facility] Comment on above: Performed By: #### L AB15, [id number], WZH920 ####Medical Technician Assistant: LESLEE HERNANDEZ ([phone])[facility] [place] ([facility])[address] Urea nitrogen [Mass/Vol] 38 mg/dL High 8-21 [facility] Comment on above: Performed By: #### L AB15, [id number], ZJM925 ####Medical Technician Assistant: LESLEE HERNANDEZ ([phone])[facility] [place] ([facility])[address] Anion gap [Moles/Vol] 12 mmol/L Normal 3-13 [facility] Comment on above: Performed By: #### L AB15, [id number] ####Medical Technician Assistant: LESLEE HERNANDEZ ([phone])[facility] [place] ([facility])[address] [place] [address] [place] Calcium [Mass/Vol] 8.3 mg/dL Low 8.4-10.2 [facility] Comment on above: Performed By: #### L AB15, [id number] ####Medical Technician Assistant: LESLEE HERNANDEZ ([phone])[facility] [place] ([facility])155 [place] [address] [place] Chloride [Moles/Vol] 107 mmol/L Normal 98-107 [facility] Comment on above: Performed By: #### L AB15, [id number] ####Medical Technician Assistant: LESLEE HERNANDEZ ([phone])[facility] ([facility])[address] CO2 [Moles/Vol] 19 mmol/L Low 22-29 [facility] Comment on above: Performed By: #### L AB15, [id number] ####Medical Technician Assistant: LESLEE HERNANDEZ ([phone])[facility] ([facility])[address] Creatinine [Mass/Vol] 1.98 mg/dL High 0.72-1.25 [facility] Comment on above: Performed By: #### L AB15, [id number] ####Medical Technician Assistant: LESLEE HERNANDEZ ([phone])[facility] ([facility])[address] GLOMERULAR FILTRATION RATE ML/MIN/1.73 SQ M.PREDICTED 41.4 mL/min/1.73m*2 Low >60.0 [facility] Comment on above: Result Comment: Calc ulation based on the Chronic Kidney Disease Epidemiology Collaboration (CKD-EPI) equation refit without adjustment for race Performed By: #### L AB15, [id number] ####Medical Technician Assistant: LESLEE HERNANDEZ ([phone])[facility] ([facility])[address] Glucose [Mass/Vol] 107 mg/dL High 74-100 [facility] Comment on above: Performed By: #### L AB15, [id number] ####Medical Technician Assistant: LESLEE HERNANDEZ ([phone])[facility] (SBAB)[address] Potassium [Moles/Vol] 4.4 mmol/L Normal 3.5-5.1 [facility] Comment on above: Result Comment: [facility] potassium values may be up to 0.5 mmol/L lower than serum values. Performed By: #### L AB15, [id number] ####Medical Technician Assistant: LESLEE HERNANDEZ ([phone])[facility] ([facility])[address] Sodium [Moles/Vol] 138 mmol/L Normal 136-145 [facility] Comment on above: Performed By: #### L AB15, [id number] ####Medical Technician Assistant: LESLEE HERNANDEZ ([phone])[facility] ([facility])[address] Urea nitrogen [Mass/Vol] 37 mg/dL High 8-21 [facility] Comment on above: Performed By: #### L AB15, [id number] ####Medical Technician Assistant: LESLEE HERNANDEZ ([phone])[facility] ([facility])[address] Basic metabolic 1998 panelon 07-24-2024 Anion gap [Moles/Vol] 10 mmol/L 3 - 13 mmol/L [facility] Calcium [Mass/Vol] 8.5 mg/dL 8.4 - 10. 2 mg/dL [facility] Chloride [Moles/Vol] 108 mmol/L High 98 - 10 7 mmol/L [facility] CO2 [Moles/Vol] 20 mmol/L Low 22 - 29 mmol/L [facility] Creatinine [Mass/Vol] 2.19 mg/dL High 0.72 - 1.25 mg/dL [facility] GFR/1.73 sq M.predicted (S/P/Bld) [Vol rate/Area] 36.7 mL/min Low - PINF [facility] Comment on above: Calculation based on the Chronic Kidney Disease Epidemiology Collaboration (CKD-EPI) equation refit without adjustment for race Glucose [Mass/Vol] 108 mg/dL High 74 - 100 mg/dL [facility] Interpretation and review of laboratory results Abnormal [facility] Potassium [Moles/Vol] 4.3 mmol/L 3.5 - 5.1 mmol/L [facility] Comment on above: Plasma potassium heidi ues may be up to 0.5 mmol/L lower than serum values. Sodium [Moles/Vol] 138 mmol/L 136 - 145 mmol/L [facility] Urea nitrogen [Mass/Vol] 38 mg/dL High 8 - 21 mg/dL [facility] Anion gap [Moles/Vol] 12 mmol/L 3 - 13 mmol/L [facility] Calcium [Mass/Vol] 8.3 mg/dL Low 8.4 - 10. 2 mg/dL [facility] Chloride [Moles/Vol] 107 mmol/L 98 - 10 7 mmol/L [facility] CO2 [Moles/Vol] 19 mmol/L Low 22 - 29 mmol/L [facility] Creatinine [Mass/Vol] 1.98 mg/dL High 0.72 - 1.25 mg/dL [facility] GFR/1.73 sq M.predicted (S/P/Bld) [Vol rate/Area] 41.4 mL/min Low - PINF [facility] Comment on above: Calculation based on the Chronic Kidney Disease Epidemiology Collaboration (CKD-EPI) equation refit without adjustment for race Glucose [Mass/Vol] 107 mg/dL High 74 - 100 mg/dL [facility] Interpretation and review of laboratory results Abnormal [facility] Potassium [Moles/Vol] 4.4 mmol/L 3.5 - 5.1 mmol/L [facility] Comment on above: Plasma potassium heidi ues may be up to 0.5 mmol/L lower than serum values. Sodium [Moles/Vol] 138 mmol/L 136 - 145 mmol/L [facility] Urea nitrogen [Mass/Vol] 37 mg/dL High 8 - 21 mg/dL [facility] CBC W Auto Differential pane l (Bld)on 07-24-2024 Basophils (Bld) [#/Vol] 0 10*3/uL 0.0 - 0.2 10*3/uL [facility] Basophils/100 WBC (Bld) 0.5 % 0.0 - 2.0 % [facility] Eosinophils (Bld) [#/Vol] 0 10*3/uL 0.0 - 0.5 10*3/uL [facility] Eosinophils/100 WBC (Bld) 0.5 % 0.0 - 6.0 % [facility] Erythrocyte distribution width (RBC) [Ratio] 13.9 % 11.5 - 15.0 % [facility] Hematocrit (Bld) [Volume fraction] 45 % 40.0 - 52.0 % [facility] Hemoglobin (Bld) [Mass/Vol] 14.4 g/dL 13.0 - 18.0 g/dL [facility] Immature granulocytes (Bld) [#/Vol] 0 10*3/uL NINF - 0.1 10*3/uL [facility] Immature granulocytes/100 WBC (Bld) 0.1 % 0.0 - 2.0 % [facility] Interpretation and review of laboratory results Abnormal [facility] Lymphocytes (Bld) [#/Vol] 2.5 10*3/uL 1.0 - 4.3 10*3/uL [facility] Lymphocytes/100 WBC (Bld) 33.2 % 15.0 - 45.0 % [facility] MCH (RBC) [Entitic mass] 33.2 pg 26.0 - 34.0 pg [facility] MCHC (RBC) [Mass/Vol] 32 % 30.5 - 36.0 % [facility] MCV (RBC) [Entitic vol] 103.7 fL High 77.0 - 99.0 fL [facility] Monocytes (Bld) [#/Vol] 0.5 10*3/uL 0.0 - 0.9 10*3/uL [facility] Monocytes/100 WBC (Bld) 7.3 % 5.0 - 13.0 % [facility] Neutrophils (Bld) [#/Vol] 4.3 10*3/uL 1.8 - 7.5 10*3/uL [facility] Neutrophils/100 WBC (Bld) 58.4 % 38.0 - 82.0 % [facility] Nucleated RBC/100 WBC (Bld) [Ratio] 0 % [facility] Platelet mean volume (Bld) [Entitic vol] 9.6 fL 9.0 - 12.7 fL [facility] Platelets (Bld) [#/Vol] 225 10*3/uL 140 - 440 10*3/uL [facility] RBC (Bld) [#/Vol] 4.34 10*6/uL Low 4.40 - 5.9 0 10*6/uL [facility] WBC (Bld) [#/Vol] 7.4 10*3/uL 3.6 - 10.7 10*3/uL [facility] CBC WITH AUTO DIFFERENTIALon 07-24-2024 Basophils (Bld) [#/Vol] 0.0 10*3/uL Normal 0.0-0.2 [facility] Comment on above: Performed By: #### L [id number] ####Medical Technician Assistant: LESLEE HERNANDEZ ([phone])[facility] ([facility])[address] [place] [address] Basophils/100 WBC (Bld) 0.5 % Normal 0.0-2.0 [facility] Comment on above: Performed By: #### L [id number] ####Medical Technician Assistant: LESLEE HERNANDEZ ([phone])[facility] ([facility]HL[facility])[address] [place] [address] Eosinophils (Bld) [#/Vol] 0.0 10*3/uL Normal 0.0-0.5 [facility] Comment on above: Performed By: #### L [id number] ####Medical Technician Assistant: LESLEE TURKTYRONE ([phone])[facility] [place] ([facility])[address] [place] [address] Eosinophils/100 WBC (Bld) 0.5 % Normal 0.0-6.0 [facility] Comment on above: Performed By: #### L [id number] ####Medical Technician Assistant: LESLEE HERNANDEZ ([phone])[facility] [place] ([facility])[address] [place] [address] Erythrocyte distribution width (RBC) [Ratio] 13.9 % Normal 11.5-15.0 [facility] Comment on above: Performed By: #### L [id number] ####Medical Technician Assistant: LESLEE HERNANDEZ ([phone])[facility] [place] ([facility])[address] [place] [address] Hematocrit (Bld) [Volume fraction] 45.0 % Normal 40.0-52.0 [facility] Comment on above: Performed By: #### L [id number] ####Medical Technician Assistant: LESLEE HERNANDEZ ([phone])[facility] [place] ([facility])[address] [place] [address] Hemoglobin (Bld) [Mass/Vol] 14.4 g/dL Normal 13.0-18.0 [facility] Comment on above: Performed By: #### L [id number] ####Medical Technician Assistant: LESLEE HERNANDEZ ([phone])[facility] ([facility])[address] IMMATURE GRANS % 0.1 % Normal 0.0-2.0 [facility] Comment on above: Performed By: #### L [id number] ####Medical Technician Assistant: LESLEE HERNANDEZ ([phone])[facility] ([facility])[address] IMMATURE GRANS ABSOLUTE 0.0 10*3/uL Normal <0.1 [facility] Comment on above: Performed By: #### L [id number] ####Medical Technician Assistant: LESLEE HERNANDEZ ([phone])[facility] [place] [address] Lymphocytes (Bld) [#/Vol] 2.5 10*3/uL Normal 1.0-4.3 [facility] Comment on above: Performed By: #### L [id number] ####Medical Technician Assistant: LESLEE HERNANDEZ ([phone])[facility] [place] [address] Lymphocytes/100 WBC (Bld) 33.2 % Normal 15.0-45.0 [facility] Comment on above: Performed By: #### L [id number] ####Medical Technician Assistant: LESLEE HERNANDEZ ([phone])[facility] ([facility])[address] [place] [address] MCH (RBC) [Entitic mass] 33.2 pg Normal 26.0-34.0 [facility] Comment on above: Performed By: #### L [id number] ####Medical Technician Assistant: LESLEE HERNANDEZ ([phone])[facility] ([facility])[address] [place] [address] MCHC 32.0 % Normal 30.5-36.0 [facility] Comment on above: Performed By: #### L [id number] ####Medical Technician Assistant: LESLEE TURKTYRONE ([phone])[facility] [place] ([facility])[address] MCV (RBC) [Entitic vol] 103.7 fL High 77.0-99.0 [facility] Comment on above: Performed By: #### L [id number] ####Medical Technician Assistant: LESLEE MCNEILLRAMON ([phone])[facility] [place] ([facility])[address] Monocytes (Bld) [#/Vol] 0.5 10*3/uL Normal 0.0-0.9 [facility] Comment on above: Performed By: #### L [id number] ####Medical Technician Assistant: LESLEE MCNEILLRAMON ([phone])[facility] [place] ([facility])[address] Monocytes/100 WBC (Bld) 7.3 % Normal 5.0-13.0 [facility] Comment on above: Performed By: #### L [id number] ####Medical Technician Assistant: LESLEE TURKTYRONE ([phone])[facility] [place] ([facility])[address] NEUTROPHILS ABSOLUTE 4.3 10*3/uL Normal 1.8-7.5 [facility] Comment on above: Performed By: #### L [id number] ####Medical Technician Assistant: LESLEE TURKTYRONE ([phone])[facility] [place] ([facility])[address] Neutrophils/100 WBC (Bld) 58.4 % Normal 38.0-82.0 [facility] Comment on above: Performed By: #### L [id number] ####Medical Technician Assistant: LESLEE TURKTYRONE ([phone])[facility] [place] ([facility])[address] NRBC 0.0 /100 WBCs Normal 0.0-2.0 [facility] Comment on above: Performed By: #### L [id number] ####Medical Technician Assistant: LESLEE HERNANDEZ ([phone])[facility] ([facility])[address] Platelet mean volume (Bld) [Entitic vol] 9.6 fL Normal 9.0-12.7 [facility] Comment on above: Performed By: #### L [id number] ####Medical Technician Assistant: LESLEE HERNANDEZ ([phone])[facility] ([facility])[address] Platelets (Bld) [#/Vol] 225 10*3/uL Normal 140-440 [facility] Comment on above: Performed By: #### L [id number] ####Medical Technician Assistant: LESLEE HERNANDEZ ([phone])[facility] ([facility])[address] [place] [address] RBC (Bld) [#/Vol] 4.34 10*6/uL Low 4.40-5.90 [facility] Comment on above: Performed By: #### L [id number] ####Medical Technician Assistant: LESLEE HERNANDEZ ([phone])[facility] ([facility])[address] WBC (Bld) [#/Vol] 7.4 10*3/uL Normal 3.6-10.7 [facility] Comment on above: Performed By: #### L [id number] ####Medical Technician Assistant: LESLEE HERNANDEZ ([phone])[facility] ([facility])[address] [place] [address] Consulton 07-24-2024 Consult Normal [facility] Laboratory - Chemistry and C hemistry - challengeon 07-24-2024 Magnesium [Mass/Vol] 2.1 mg/dL 1.6 - 2 .6 mg/dL [facility] Magnesium [Mass/Vol] 2 mg/dL 1.6 - 2 .6 mg/dL [facility] TSH Qn 3.18 m[IU]/L [facility] MAGNESIUMon 07-24-2024 Magnesium [Mass/Vol] 2.1 mg/dL Normal 1.6-2.6 [facility] Comment on above: Result Comment: ALEJANDRO R COMMENTS:Higher values can be expected in females during menses. Performed By: #### L AB15, [id number], [id number] ####Medical Technician Assistant: LESLEE HERNANDEZ ([phone])[facility] ([facility])[address] [place] [address] Magnesium [Mass/Vol] 2.0 mg/dL Normal 1.6-2.6 [facility] Comment on above: Result Comment: ALEJANDRO R COMMENTS:Higher values can be expected in females during menses. Performed By: #### L AB15, [id number] ####Medical Technician Assistant: LESLEE HERNANDEZ ([phone])[facility] ([facility])[address] [place] [address] Magnesium [Mass/Vol]on 07-24 Interpretation and review of laboratory results Normal [facility] Higher values can be expected in females during menses. [facility] Interpretation and review of laboratory results Normal [facility] Higher values can be expected in females during menses. [facility] NT PRO BNPon 07-24-2024 Natriuretic peptide B (Bld) [Mass/Vol] 68300 pg/mL High <125 [facility] Comment on above: Performed By: #### L AB15, [id number], [id number] ####Medical Technician Assistant: LESLEE HERNANDEZ ([phone])[facility] ([facility])[address] [place] [address] Natriuretic peptide B [Mass/ Vol]on 07-24-2024 Interpretation and review of laboratory results Abnormal [facility] Natriuretic peptide B (Bld) [Mass/Vol] 89410 pg/mL High NINF - 125 pg/mL [facility] No Panel Informationon 07-24 [facility] 2h Troponin HS (Serial 2nd Troponin) 30 ng/L NINF - 35 ng/L [facility] Interpretation and review of laboratory results Normal [facility] Progress Noteon 07-24-2024 Progress Note Normal [facility] TSH Qnon 07-24-2024 Interpretation and review of laboratory results Normal [facility] 36on 07-23-2024 36 Pt is now scheduled to be seen in the [facility]F clinic next week 07/28/2024 at 9:30 am. I left another message asking that he hold Entresto until seen in the CHF clinic and continue lasix. Normal [facility] 36 LM for pt that they are seeing Dr Astudillo on 07/28/2024 @ 9:30a [facility] 36 Patient will need scheduled for a Follow up with heart failure clinic FAYE per Yulissa. Please call patient to schedule. Normal [facility] 36 [facility] BASIC METABOLIC PANELon 07-01 Anion gap [Moles/Vol] 15 mmol/L High 3-13 [facility] Comment on above: Performed By: #### L [id number], LAB15, [id number] ####Medical Technician Assistant: LESLEE HERNANDEZ ([phone])[facility] ([facility])[address] Calcium [Mass/Vol] 9.1 mg/dL Normal 8.4-10.2 [facility] Comment on above: Performed By: #### L [id number], LAB15, [id number] ####Medical Technician Assistant: LESLEE HERNANDEZ ([phone])[facility] ([facility])[address] Chloride [Moles/Vol] 106 mmol/L Normal 98-107 [facility] Comment on above: Performed By: #### L AB106, LAB15, [id number] ####Medical Technician Assistant: LESLEE HERNANDEZ ([phone])[facility] ([facility])[address] [place] [address] [place] CO2 [Moles/Vol] 19 mmol/L Low 22-29 [facility] Comment on above: Performed By: #### L AB106, LAB15, [id number] ####Medical Technician Assistant: LESLEE HERNANDEZ ([phone])[facility] ([facility])[address] [place] [address] [place] Creatinine [Mass/Vol] 2.24 mg/dL High 0.72-1.25 [facility] Comment on above: Performed By: #### L AB106, LAB15, [id number] ####Medical Technician Assistant: LESLEE HERNANDEZ ([phone])[facility] ([facility])[address] GLOMERULAR FILTRATION RATE ML/MIN/1.73 SQ M.PREDICTED 35.7 mL/min/1.73m*2 Low >60.0 [facility] Comment on above: Result Comment: Calc ulation based on the Chronic Kidney Disease Epidemiology Collaboration (CKD-EPI) equation refit without adjustment for race Performed By: #### Pedro ANN, LAB15, [id number] ####Medical Technician Assistant: LESLEE HERNANDEZ ([phone])[facility] Glucose [Mass/Vol] 102 mg/dL High 74-100 [facility] Comment on above: Performed By: #### Pedro ANN, LAB15, [id number] ####Medical Technician Assistant: LESLEE HERNANDEZ ([phone])[facility] Potassium [Moles/Vol] 4.6 mmol/L Normal 3.5-5.1 [facility] Comment on above: Result Comment: [facility] potassium values may be up to 0.5 mmol/L lower than serum values. Performed By: #### Pedro ANN, LAB15, [id number] ####Medical Technician Assistant: LESLEE HERNANDEZ ([phone])[facility] ([facility])[address] [place] [address] [place] Sodium [Moles/Vol] 140 mmol/L Normal 136-145 [facility] Comment on above: Performed By: #### L AB106, LAB15, [id number] ####Medical Technician Assistant: LESLEE HERNANDEZ ([phone])[facility] ([facility])[address] [place] [address] [place] Urea nitrogen [Mass/Vol] 37 mg/dL High 8-21 [facility] Comment on above: Performed By: #### L AB106, LAB15, [id number] ####Medical Technician Assistant: LESLEE HERNANDEZ ([phone])[facility] ([facility])[address] [place] [address] Basic metabolic 1998 panelon 07-23-2024 Anion gap [Moles/Vol] 15 mmol/L High 3 - 13 mmol/L [facility] Calcium [Mass/Vol] 9.1 mg/dL 8.4 - 10. 2 mg/dL [facility] Chloride [Moles/Vol] 106 mmol/L 98 - 10 7 mmol/L [facility] CO2 [Moles/Vol] 19 mmol/L Low 22 - 29 mmol/L [facility] Creatinine [Mass/Vol] 2.24 mg/dL High 0.72 - 1.25 mg/dL [facility] GFR/1.73 sq M.predicted (S/P/Bld) [Vol rate/Area] 35.7 mL/min Low - PINF [facility] Comment on above: Calculation based on the Chronic Kidney Disease Epidemiology Collaboration (CKD-EPI) equation refit without adjustment for race Glucose [Mass/Vol] 102 mg/dL High 74 - 100 mg/dL [facility] Interpretation and review of laboratory results Abnormal [facility] Potassium [Moles/Vol] 4.6 mmol/L 3.5 - 5.1 mmol/L [facility] Comment on above: Plasma potassium heidi ues may be up to 0.5 mmol/L lower than serum values. Sodium [Moles/Vol] 140 mmol/L 136 - 145 mmol/L [facility] Urea nitrogen [Mass/Vol] 37 mg/dL High 8 - 21 mg/dL [facility] CBC W Auto Differential pane l (Bld)on 07-23-2024 Basophils (Bld) [#/Vol] 0 10*3/uL 0.0 - 0.2 10*3/uL [facility] Basophils/100 WBC (Bld) 0.1 % 0.0 - 2.0 % [facility] Eosinophils (Bld) [#/Vol] 0 10*3/uL 0.0 - 0.5 10*3/uL [facility] Eosinophils/100 WBC (Bld) 0.1 % 0.0 - 6.0 % [facility] Erythrocyte distribution width (RBC) [Ratio] 13.8 % 11.5 - 15.0 % [facility] Hematocrit (Bld) [Volume fraction] 46.5 % 40.0 - 52.0 % [facility] Hemoglobin (Bld) [Mass/Vol] 15.2 g/dL 13.0 - 18.0 g/dL [facility] Immature granulocytes (Bld) [#/Vol] 0 10*3/uL NINF - 0.1 10*3/uL [facility] Immature granulocytes/100 WBC (Bld) 0.3 % 0.0 - 2.0 % [facility] Interpretation and review of laboratory results Abnormal [facility] Lymphocytes (Bld) [#/Vol] 2.1 10*3/uL 1.0 - 4.3 10*3/uL [facility] Lymphocytes/100 WBC (Bld) 23.4 % 15.0 - 45.0 % [facility] MCH (RBC) [Entitic mass] 33.4 pg 26.0 - 34.0 pg [facility] MCHC (RBC) [Mass/Vol] 32.7 % 30.5 - 36.0 % [facility] MCV (RBC) [Entitic vol] 102.2 fL High 77.0 - 99.0 fL [facility] Monocytes (Bld) [#/Vol] 0.8 10*3/uL 0.0 - 0.9 10*3/uL [facility] Monocytes/100 WBC (Bld) 8.6 % 5.0 - 13.0 % [facility] Neutrophils (Bld) [#/Vol] 5.9 10*3/uL 1.8 - 7.5 10*3/uL [facility] Neutrophils/100 WBC (Bld) 67.5 % 38.0 - 82.0 % [facility] Nucleated RBC/100 WBC (Bld) [Ratio] 0 % [facility] Platelet mean volume (Bld) [Entitic vol] 9.5 fL 9.0 - 12.7 fL [facility] Platelets (Bld) [#/Vol] 255 10*3/uL 140 - 440 10*3/uL [facility] RBC (Bld) [#/Vol] 4.55 10*6/uL 4.40 - 5.9 0 10*6/uL [facility] WBC (Bld) [#/Vol] 8.8 10*3/uL 3.6 - 10.7 10*3/uL [facility] CBC WITH AUTO DIFFERENTIALon 07-23-2024 Basophils (Bld) [#/Vol] 0.0 10*3/uL Normal 0.0-0.2 [facility] Comment on above: Performed By: #### L [id number] ####Medical Technician Assistant: LESLEE HERNANDEZ ([phone])[facility] Basophils/100 WBC (Bld) 0.1 % Normal 0.0-2.0 [facility] Comment on above: Performed By: #### L [id number] ####Medical Technician Assistant: LESLEE HERNANDEZ ([phone])[facility] ([facility])[address] [place] [address] Eosinophils (Bld) [#/Vol] 0.0 10*3/uL Normal 0.0-0.5 [facility] Comment on above: Performed By: #### L [id number] ####Medical Technician Assistant: LESLEE HERNANDEZ ([phone])[facility] [place] [address] Eosinophils/100 WBC (Bld) 0.1 % Normal 0.0-6.0 [facility] Comment on above: Performed By: #### L [id number] ####Medical Technician Assistant: LESLEE HERNANDEZ ([phone])[facility] [place] [address] Erythrocyte distribution width (RBC) [Ratio] 13.8 % Normal 11.5-15.0 [facility] Comment on above: Performed By: #### L [id number] ####Medical Technician Assistant: LESLEE HERNANDEZ ([phone])[facility] [place] [address] Hematocrit (Bld) [Volume fraction] 46.5 % Normal 40.0-52.0 [facility] Comment on above: Performed By: #### L [id number] ####Medical Technician Assistant: LESLEE HERNANDEZ ([phone])[facility] Hemoglobin (Bld) [Mass/Vol] 15.2 g/dL Normal 13.0-18.0 [facility] Comment on above: Performed By: #### L [id number] ####Medical Technician Assistant: LESLEE HERNANDEZ ([phone])[facility] IMMATURE GRANS % 0.3 % Normal 0.0-2.0 [facility] Comment on above: Performed By: #### L [id number] ####Medical Technician Assistant: LESLEE HERNANDEZ ([phone])[facility] ([facility])[address] [place] [address] IMMATURE GRANS ABSOLUTE 0.0 10*3/uL Normal <0.1 [facility] Comment on above: Performed By: #### L [id number] ####Medical Technician Assistant: LESLEE HERNANDEZ ([phone])[facility] Lymphocytes (Bld) [#/Vol] 2.1 10*3/uL Normal 1.0-4.3 [facility] Comment on above: Performed By: #### L [id number] ####Medical Technician Assistant: LESLEE HERNANDEZ ([phone])[facility] Lymphocytes/100 WBC (Bld) 23.4 % Normal 15.0-45.0 [facility] Comment on above: Performed By: #### L [id number] ####Medical Technician Assistant: LESLEE HERNANDEZ ([phone])[facility] [place] [address] MCH (RBC) [Entitic mass] 33.4 pg Normal 26.0-34.0 [facility] Comment on above: Performed By: #### L [id number] ####Medical Technician Assistant: LESLEE HERNANDEZ ([phone])[facility] [place] ([facility])[address] MCHC 32.7 % Normal 30.5-36.0 [facility] Comment on above: Performed By: #### L [id number] ####Medical Technician Assistant: LESLEE HERNANDEZ ([phone])[facility] [place] ([facility])[address] MCV (RBC) [Entitic vol] 102.2 fL High 77.0-99.0 [facility] Comment on above: Performed By: #### L [id number] ####Medical Technician Assistant: LESLEE TURKTYRONE ([phone])[facility] [place] ([facility])[address] [place] [address] Monocytes (Bld) [#/Vol] 0.8 10*3/uL Normal 0.0-0.9 [facility] Comment on above: Performed By: #### L [id number] ####Medical Technician Assistant: LESLEE HERNANDEZ ([phone])[facility] [place] ([facility])[address] Monocytes/100 WBC (Bld) 8.6 % Normal 5.0-13.0 [facility] Comment on above: Performed By: #### L [id number] ####Medical Technician Assistant: LESLEE HERNANDEZ ([phone])[facility] [place] ([facility])[address] NEUTROPHILS ABSOLUTE 5.9 10*3/uL Normal 1.8-7.5 [facility] Comment on above: Performed By: #### L [id number] ####Medical Technician Assistant: LESLEE HERNANDEZ ([phone])[facility] [place] ([facility])[address] Neutrophils/100 WBC (Bld) 67.5 % Normal 38.0-82.0 [facility] Comment on above: Performed By: #### L [id number] ####Medical Technician Assistant: LESLEE TURKTYRONE ([phone])[facility] [place] ([facility])[address] NRBC 0.0 /100 WBCs Normal 0.0-2.0 [facility] Comment on above: Performed By: #### L [id number] ####Medical Technician Assistant: LESLEE TORRESCER ([phone])[facility] [place] ([facility])[address] Platelet mean volume (Bld) [Entitic vol] 9.5 fL Normal 9.0-12.7 [facility] Comment on above: Performed By: #### L [id number] ####Medical Technician Assistant: LESLEE TURKTYRONE ([phone])[facility] [place] ([facility])[address] [place] [address] Platelets (Bld) [#/Vol] 255 10*3/uL Normal 140-440 [facility] Comment on above: Performed By: #### L [id number] ####Medical Technician Assistant: LESLEE HERNANDEZ ([phone])[facility] [place] ([facility])[address] RBC (Bld) [#/Vol] 4.55 10*6/uL Normal 4.40-5.90 [facility] Comment on above: Performed By: #### L [id number] ####Medical Technician Assistant: LESLEE HERNANDEZ ([phone])[facility] [place] ([facility])[address] WBC (Bld) [#/Vol] 8.8 10*3/uL Normal 3.6-10.7 [facility] Comment on above: Performed By: #### L [id number] ####Medical Technician Assistant: LESLEE HERNANDEZ ([phone])[facility] [place] ([facility])[address] ECG 12-LEADon 07-23-2024 ECG 12-LEAD IMPRESSION: Sinus tachycardia Anterior infarct, old Electronically Signed On 07-23-2024 21:59:14 EST by Bertha Pichardo Normal [facility] ED Nursing Noteon 07-23-2024 ED Nursing Note robotics testing technician called. Normal [facility] ED Nursing Note Normal [facility] ED Provider Noteon ED Provider Note Normal [facility] HIGH SENSITIVITY TROPONIN, S ERIAL BASELINEon 07-23-2024 TROPONIN HIGH SENSITIVITY BASELINE 33 ng/L Normal <=35 [facility] Comment on above: Performed By: #### L AB106, LAB15, [id number] ####Medical Technician Assistant: LESLEE HERNANDEZ ([phone])[facility])[address] [place] [address] HIGH SENSITIVITY TROPONIN, S ERIAL, SECOND TESTon 07-23-2024 TROPONIN HS, SERIAL REFLEX, TEST TWO 30 ng/L Normal <=35 [facility] Comment on above: Performed By: #### L [id number], [id number] ####Medical Technician Assistant: LESLEE HERNANDEZ ([phone])[facility] ([facility])[address] [place] [address] NT PRO BNPon 07-23-2024 Natriuretic peptide B (Bld) [Mass/Vol] 19997 pg/mL High <125 [facility] Comment on above: Performed By: #### L AB106, LAB15, [id number] ####Medical Technician Assistant: LESLEE HERNANDEZ ([phone])[facility] ([facility])[address] [place] [address] Natriuretic peptide B [Mass/ Vol]on 07-23-2024 Interpretation and review of laboratory results Abnormal [facility] Natriuretic peptide B (Bld) [Mass/Vol] 42642 pg/mL High NINF - 125 pg/mL [facility] No Panel Informationon 07-23 Interpretation and review of laboratory results Normal [facility] Troponin HS Serial Baseline 33 ng/L NINF - 35 ng/L [facility] Videum P [place] -29 degrees [facility] [place] Interval 122 ms [facility] QRS [place] 116 degrees [facility] QRSD Interval 154 ms [facility] QT Interval 369 ms [facility] QTC Interval 520 ms [facility] T Wave [place] -29 degrees [facility] Sinus tachycardia Anterior infarct, old Electronically Signed On 07-23-2024 21:59:14 EST by Bertha Newsome D O - 07/23/2024 IMPRESSION: Sinus tachycardia Anterior infarct, old Electronically Signed On 07-23-2024 21:59:14 EST by Bertha Pichardo [facility] THYROID STIMULATING HORMONEo n 07-23-2024 THYROID STIMULATING HORMONE 3.18 uIU/mL Normal 0.35-4.94 [facility] Comment on above: Performed By: #### L [id number], [id number] ####Medical Technician Assistant: LESLEE HERNANDEZ ([phone])[facility] ([facility])[address] [place] [address] Vital signson 07-23-2024 Heart rate 119 /min bpm [facility] XR Chest Single viewon 07-23 Stable cardiomegaly. No acute process. Report Dictated on Electronically Signed By: Juan Pereira MD Electronically Signed Date/Time: 07/23/2024 8:20 PM EST [facility] Patient Name: CARLO MEDINA : 1980 [...] mediastinal contour. BONES/JOINTS: Unremarkable. No acute fracture. [facility] Juan Pereira MD - 07/23/2024 Patient Name: [...] Electronically Signed Date/Time: 07/23/2024 8:20 PM EST [facility] Radiology Study observation (narrative) [facility] XR Chest Single viewOrdered By: Juan Pereira on 07-23-2024 [facility] Work Phone: Progress Noteon 07-21-2024 Progress Note Normal [facility] 36on 07-20-2024 36 Unable to contact patient X2 Normal [facility] 36on 07-19-2024 36 Normal [facility] 36on 07-16-2024 36 Normal [facility] COMPREHENSIVE METABOLIC PANE Ming 07-16-2024 Albumin [Mass/Vol] 2.3 g/dL Low 3.5-5.0 [facility] Comment on above: Performed By: #### L AB103, LAB17 ####Medical Technician Assistant: LESLEE HERNANDEZ ([phone])[facility] ([facility])[address] [place] [address] ALP [Catalytic activity/Vol] 142 U/L Normal 40-150 [facility] Comment on above: Performed By: #### L AB103, LAB17 ####Medical Technician Assistant: LESLEE HERNANDEZ ([phone])[facility] ([facility])[address] [place] [address] ALT [Catalytic activity/Vol] 60 U/L High <40 [facility] Comment on above: Performed By: #### L AB103, LAB17 ####Medical Technician Assistant: LESLEE [phone])[facility] [place] ([facility])[address] Anion gap [Moles/Vol] 7 mmol/L Normal 3-13 [facility] Comment on above: Performed By: #### L AB103, LAB17 ####Medical Technician Assistant: LESLEE HERNANDEZ ([phone])[facility] ([facility])[address] [address] AST [Catalytic activity/Vol] 56 U/L High <34 [facility] Comment on above: Result Comment: TCSi gnificant interference from hemolysis. Result integrity compromised. Interpret with caution. Performed By: #### L AB103, LAB17 ####Medical Technician Assistant: LESLEE HERNANDEZ ([phone])[facility] (SBHLAB)[address] Bilirubin [Mass/Vol] 0.8 mg/dL Normal <1.2 [facility] Comment on above: Performed By: #### L AB103, LAB17 ####Medical Technician Assistant: LESLEE HERNANDEZ ([phone])[facility] (SBHLAB)[address] Calcium [Mass/Vol] 7.0 mg/dL Low 8.4-10.2 [facility] Comment on above: Performed By: #### L AB103, LAB17 ####Medical Technician Assistant: LESLEE HERNANDEZ ([phone])[facility] (SBHLAB)[address] Chloride [Moles/Vol] 109 mmol/L High 98-107 [facility] Comment on above: Performed By: #### L AB103, LAB17 ####Medical Technician Assistant: LESLEE HERNANDEZ ([phone])[facility] (SBHLAB)[address] CO2 [Moles/Vol] 17 mmol/L Low 22-29 [facility] Comment on above: Performed By: #### L AB103, LAB17 ####Medical Technician Assistant: LESLEE HERNANDEZ ([phone])[facility]ITAL[facility]uer[facility] (SBHLAB)[address] Creatinine [Mass/Vol] 1.40 mg/dL High 0.72-1.25 [facility] Comment on above: Performed By: #### L AB103, LAB17 ####Medical Technician Assistant: LESLEE HERNANDEZ ([phone])[facility]ITAL[facility]uerite (SBHLAB)[address] GLOMERULAR FILTRATION RATE ML/MIN/1.73 SQ M.PREDICTED 62.8 mL/min/1.73m*2 Normal >60.0 [facility] Comment on above: Result Comment: Calc ulation based on the Chronic Kidney Disease Epidemiology Collaboration (CKD-EPI) equation refit without adjustment for race Performed By: #### L AB103, LAB17 ####Medical Technician Assistant: LESLEE HERNANDEZ ([phone])[facility] [place] (SBHLAB)[address] Glucose [Mass/Vol] 102 mg/dL High 74-100 [facility] Comment on above: Performed By: #### L AB103, LAB17 ####Medical Technician Assistant: LESLEE HERNANDEZ ([phone])[facility] Potassium [Moles/Vol] 4.8 mmol/L Normal 3.5-5.1 [facility] Comment on above: Result Comment: TCSi gnificant interference from hemolysis. Result integrity compromised. Interpret with caution. Performed By: #### L AB103, LAB17 ####Medical Technician Assistant: LESLEE HERNANDEZ ([phone])[facility] [place] (SBHLAB)155 [place] [address] [place] Protein [Mass/Vol] 5.2 g/dL Low 6.4-8.3 [facility] Comment on above: Result Comment: TCPo tential interference from hemolysis Performed By: #### L AB103, LAB17 ####Medical Technician Assistant: LESLEE HERNANDEZ ([phone])[facility] [place] (SBHLAB)[address] Sodium [Moles/Vol] 133 mmol/L Low 136-145 [facility] Comment on above: Performed By: #### L AB103, LAB17 ####Medical Technician Assistant: LESLEE HERNANDEZ ([phone])[facility] [place] (SBHLAB)[address] Urea nitrogen [Mass/Vol] 27 mg/dL High 8-21 [facility] Comment on above: Performed By: #### L AB103, LAB17 ####Medical Technician Assistant: LESLEE MCNEILLRAMON ([phone])[facility]ITALMarguerite (SBHLAB)[address] Comprehensive metabolic 1998 panelon 07-16-2024 Albumin [Mass/Vol] 2.3 g/dL Low 3.5 - 5.0 g/dL [facility] ALP [Catalytic activity/Vol] 142 U/L 40 - 150 U/L [facility] ALT [Catalytic activity/Vol] 60 U/L [facility]L [facility] Anion gap [Moles/Vol] 7 mmol/L 3 - 13 mmol/L [facility] AST [Catalytic activity/Vol] 56 U/L High [facility] - 34 U/L [facility] Comment on above: TC Significant interference from hemolysis. Result integrity compromised. Interpret with caution. Bilirubin [Mass/Vol] 0.8 mg/dL [facility] - 1.2 mg/dL [facility] Calcium [Mass/Vol] 7 mg/dL Low 8.4 - 10. 2 mg/dL [facility] Chloride [Moles/Vol] 109 mmol/L High 98 - 10 7 mmol/L [facility] CO2 [Moles/Vol] 17 mmol/L Low 22 - 29 mmol/L [facility] Creatinine [Mass/Vol] 1.4 mg/dL High 0.72 - 1.25 mg/dL [facility] GFR/1.73 sq M.predicted (S/P/Bld) [Vol rate/Area] 62.8 mL/min - PINF [facility] Comment on above: Calculation based on the Chronic Kidney Disease Epidemiology Collaboration (CKD-EPI) equation refit without adjustment for race Glucose [Mass/Vol] 102 mg/dL High 74 - 100 mg/dL [facility] Interpretation and review of laboratory results Abnormal [facility] Potassium [Moles/Vol] 4.8 mmol/L 3.5 - 5.1 mmol/L [facility] Comment on above: TC Significant interference from hemolysis. Result integrity compromised. Interpret with caution. Protein [Mass/Vol] 5.2 g/dL Low 6.4 - 8.3 g/dL [facility] Comment on above: TC Potential interference from hemolysis Sodium [Moles/Vol] 133 mmol/L Low 136 - 145 mmol/L [facility] Urea nitrogen [Mass/Vol] 27 mg/dL High 8 - 21 mg/dL [facility] Laboratory - Chemistry and C hemistry - challengeon 07-16-2024 Magnesium [Mass/Vol] 1.8 mg/dL 1.6 - 2 .6 mg/dL [facility] MAGNESIUMon 07-16-2024 Magnesium [Mass/Vol] 1.8 mg/dL Normal 1.6-2.6 [facility] Comment on above: Result Comment: ALEJANDRO Aleman COMMENTS:Higher values can be expected in females during menses. Performed By: #### L AB103, LAB17 ####Medical Technician Assistant: LESLEE HERNANDEZ ([phone])[facility] ([facility])[address] [place] [address] Magnesium [Mass/Vol]on 07-16 Interpretation and review of laboratory results Normal [facility] Higher values can be expected in females during menses. [facility] No Panel Informationon 07-16 [facility] Progress Noteon 07-16-2024 Progress Note Normal [facility] XR Abdomen Single viewon Few dilated loops of air-filled small bowel are noted is nonspecific and could represent ileus versus early or partial small bowel obstruction. Continued follow-up is recommended. Report Dictated on Electronically Signed By: Joel Hi MD Electronically Signed Date/Time: 07/16/2024 3:01 PM [facility] [employer] Patient Name: CARLO MEDINA : 1980 [...] are degenerative changes of the lumbar spine. [facility] Joel Hi MD - 07/16/2024 Patient Name: [...] Electronically Signed Date/Time: 07/16/2024 3:01 PM EST [facility] Radiology Study observation (narrative) [facility] XR Abdomen Single viewOrdere d By: Joel Hi on 07-16-2024 [facility] [employer] Work Phone: 30on 07-15-2024 30 Normal [facility] 30 Normal [facility] 30 Normal [facility] BASIC METABOLIC PANELon 06-30 Anion gap [Moles/Vol] 4 mmol/L Normal 3-13 [facility] Comment on above: Performed By: #### L AB103, [id number], LAB15 ####Medical Technician Assistant: LESLEE HERNANDEZ ([phone])[facility] (SBHLAB)[address] [place] [address] Calcium [Mass/Vol] 6.9 mg/dL Low 8.4-10.2 [facility] Comment on above: Performed By: #### L AB103, [id number], LAB15 ####Medical Technician Assistant: LESLEE HERNANDEZ ([phone])[facility] [place] (SBHLAB)[address] Chloride [Moles/Vol] 108 mmol/L High 98-107 [facility] Comment on above: Performed By: #### L AB103, [id number], LAB15 ####Medical Technician Assistant: LESLEE HERNANDEZ ([phone])[facility] [place] (SBHLAB)[address] CO2 [Moles/Vol] 22 mmol/L Normal 22-29 [facility] Comment on above: Performed By: #### L AB103, QAZ512, LAB15 ####Medical Technician Assistant: LESLEE HERNANDEZ ([phone])[facility] [place] (SBHLAB)[address] Creatinine [Mass/Vol] 1.54 mg/dL High 0.72-1.25 [facility] Comment on above: Performed By: #### L AB103, [id number], LAB15 ####Medical Technician Assistant: LESLEE HERNANDEZ ([phone])[facility] (SBHLAB)[address] GLOMERULAR FILTRATION RATE ML/MIN/1.73 SQ M.PREDICTED 56.0 mL/min/1.73m*2 Low >60.0 [facility] Comment on above: Result Comment: Calc ulation based on the Chronic Kidney Disease Epidemiology Collaboration (CKD-EPI) equation refit without adjustment for raceORDER COMMENTS:Slightly hemolyzed Performed By: #### L AB103, [id number], LAB15 ####Medical Technician Assistant: LESLEE HERNANDEZ ([phone])[facility] [place] (SBHLAB)[address] Glucose [Mass/Vol] 108 mg/dL High 74-100 [facility] Comment on above: Performed By: #### L AB103, [id number], LAB15 ####Medical Technician Assistant: LESLEE TORRESCER ([phone])[facility] (SBHLAB)[address] Potassium [Moles/Vol] 4.5 mmol/L Normal 3.5-5.1 [facility] Comment on above: Result Comment: TCSi gnificant interference from hemolysis. Result integrity compromised. Interpret with caution. Performed By: #### L AB103, [id number], LAB15 ####Medical Technician Assistant: LESLEE HERNANDEZ ([phone])[facility] (SBHLAB)[address] Sodium [Moles/Vol] 134 mmol/L Low 136-145 [facility] Comment on above: Performed By: #### L AB103, TLS081, LAB15 ####Medical Technician Assistant: LESLEE HERNANDEZ ([phone])[facility] (SBHLAB)[address] Urea nitrogen [Mass/Vol] 30 mg/dL High 8-21 [facility] Comment on above: Performed By: #### L AB103, COC101, LAB15 ####Medical Technician Assistant: LESLEE HERNANDEZ ([phone])[facility] (SBHLAB)[address] Basic metabolic 1998 panelon 07-15-2024 Anion gap [Moles/Vol] 4 mmol/L 3 - 13 mmol/L [facility] Calcium [Mass/Vol] 6.9 mg/dL Low 8.4 - 10. 2 mg/dL [facility] Chloride [Moles/Vol] 108 mmol/L High 98 - 10 7 mmol/L [facility] [employer] CO2 [Moles/Vol] 22 mmol/L 22 - 29 mmol/L [facility] Creatinine [Mass/Vol] 1.54 mg/dL High 0.72 - 1.25 mg/dL [facility] GFR/1.73 sq M.predicted (S/P/Bld) [Vol rate/Area] 56 mL/min Low - PINF [facility] Comment on above: Calculation based on the Chronic Kidney Disease Epidemiology Collaboration (CKD-EPI) equation refit without adjustment for race Glucose [Mass/Vol] 108 mg/dL High 74 - 100 mg/dL [facility] Interpretation and review of laboratory results Abnormal [facility] Potassium [Moles/Vol] 4.5 mmol/L 3.5 - 5.1 mmol/L [facility] Comment on above: TC Significant interference from hemolysis. Result integrity compromised. Interpret with caution. Sodium [Moles/Vol] 134 mmol/L Low 136 - 145 mmol/L [facility] Urea nitrogen [Mass/Vol] 30 mg/dL High 8 - 21 mg/dL [facility] Slightly hemolyzed [facility] CBC (HEMOGRAM)on 07-15-2024 Erythrocyte distribution width (RBC) [Ratio] 13.7 % Normal 11.5-15.0 [facility] Comment on above: Performed By: #### L AB294 ####Medical Technician Assistant: LESLEE HERNANDEZ ([phone])[facility] (SBHLAB)[address] [place] [address] Hematocrit (Bld) [Volume fraction] 37.7 % Low 40.0-52.0 [facility] Comment on above: Performed By: #### L AB294 ####Medical Technician Assistant: LESLEE HERNANDEZ ([phone])[facility] (SBHLAB)[address] [place] [address] Hemoglobin (Bld) [Mass/Vol] 12.2 g/dL Low 13.0-18.0 [facility] Comment on above: Performed By: #### L AB294 ####Medical Technician Assistant: LESLEE HERNANDEZ ([phone])[facility] (SBHLAB)[address] MCH (RBC) [Entitic mass] 33.7 pg Normal 26.0-34.0 [facility] Comment on above: Performed By: #### L AB294 ####Medical Technician Assistant: LESLEE HERNANDEZ ([phone])[facility] (SBHLAB)[address] MCHC 32.4 % Normal 30.5-36.0 [facility] Comment on above: Performed By: #### L AB294 ####Medical Technician Assistant: LESLEE HERNANDEZ ([phone])[facility] [place] (SBHLAB)[address] MCV (RBC) [Entitic vol] 104.1 fL High 77.0-99.0 [facility] Comment on above: Performed By: #### L AB294 ####Medical Technician Assistant: LESLEE HERNANDEZ ([phone])[facility] (SBHLAB)[address] Platelet mean volume (Bld) [Entitic vol] 10.2 fL Normal 9.0-12.7 [facility] Comment on above: Performed By: #### L AB294 ####Medical Technician Assistant: LESLEE HERNANDEZ ([phone])[facility] [place] (SBHLAB)[address] [place] [address] Platelets (Bld) [#/Vol] 242 10*3/uL Normal 140-440 [facility] Comment on above: Performed By: #### L AB294 ####Medical Technician Assistant: LESLEE HERNANDEZ ([phone])[facility] [place] (SBHLAB)[address] RBC (Bld) [#/Vol] 3.62 10*6/uL Low 4.40-5.90 [facility] Comment on above: Performed By: #### L AB294 ####Medical Technician Assistant: LESLEE HERNANDEZ ([phone])[facility] (SBHLAB)[address] WBC (Bld) [#/Vol] 5.5 10*3/uL Normal 3.6-10.7 [facility] Comment on above: Performed By: #### L AB294 ####Medical Technician Assistant: LESLEE HERNANDEZ ([phone])[facility] [place] (SBHLAB)[address] CBC panel Auto (Bld)on 07-15 Erythrocyte distribution width (RBC) [Ratio] 13.7 % 11.5 - 15.0 % [facility] Hematocrit (Bld) [Volume fraction] 37.7 % Low 40.0 - 52.0 % [facility] Hemoglobin (Bld) [Mass/Vol] 12.2 g/dL Low 13.0 - 18.0 g/dL [facility] Interpretation and review of laboratory results Abnormal [facility] MCH (RBC) [Entitic mass] 33.7 pg 26.0 - 34.0 pg [facility] MCHC (RBC) [Mass/Vol] 32.4 % 30.5 - 36.0 % [facility] MCV (RBC) [Entitic vol] 104.1 fL High 77.0 - 99.0 fL [facility] Platelet mean volume (Bld) [Entitic vol] 10.2 fL 9.0 - 12.7 fL [facility] Platelets (Bld) [#/Vol] 242 10*3/uL 140 - 440 10*3/uL [facility] RBC (Bld) [#/Vol] 3.62 10*6/uL Low 4.40 - 5.9 0 10*6/uL [facility] WBC (Bld) [#/Vol] 5.5 10*3/uL 3.6 - 10.7 10*3/uL [facility] Laboratory - Chemistry and C hemistry - challengeon 07-15-2024 Magnesium [Mass/Vol] 1.7 mg/dL 1.6 - 2 .6 mg/dL [facility] MAGNESIUMon 07-15-2024 Magnesium [Mass/Vol] 1.7 mg/dL Normal 1.6-2.6 [facility] Comment on above: Result Comment: ALEJANDRO Aleman COMMENTS:Higher values can be expected in females during menses. Performed By: #### L AB103, [id number], LAB15 ####Medical Technician Assistant: LESLEE HERNANDEZ ([phone])[facility] ([facility])[address] [place] [address] Magnesium [Mass/Vol]on 07-15 Interpretation and review of laboratory results Normal [facility] Higher values can be expected in females during menses. [facility] NT PRO BNPon 07-15-2024 Natriuretic peptide B (Bld) [Mass/Vol] 83779 pg/mL High <125 [facility] Comment on above: Performed By: #### L AB103, HVF196, LAB15 ####Medical Technician Assistant: LESLEE HERNANDEZ ([phone])[facility] JENNY (SBAB)[address] [place] [address] [place] Natriuretic peptide B [Mass/ Vol]on 07-15-2024 Interpretation and review of laboratory results Abnormal [facility] Natriuretic peptide B (Bld) [Mass/Vol] 04043 pg/mL High NINF - 125 pg/mL [facility] No Panel Informationon 07-15 [facility] Progress Noteon 07-15-2024 Progress Note Normal [facility] Progress Note Normal [facility] 30on 07-14-2024 30 Normal [facility] [id number] 07-14-2024 [id number] Normal [facility] [id number] 07-14-2024 [id number] Normal [facility] BASIC METABOLIC PANELon 06-30 Anion gap [Moles/Vol] 10 mmol/L Normal 3-13 [facility] Comment on above: Performed By: #### L AB103, LAB15, LAB20, LAB99 ####Medical Technician Assistant: LESLEE HERNANDEZ ([phone])[facility] [place] [address] [place] Calcium [Mass/Vol] 8.3 mg/dL Low 8.4-10.2 [facility] Comment on above: Performed By: #### L AB103, LAB15, LAB20, LAB99 ####Medical Technician Assistant: LESLEE HERNANDEZ ([phone])[facility] (SBHLAB)[address] [place] [address] [place] Chloride [Moles/Vol] 104 mmol/L Normal 98-107 [facility] Comment on above: Performed By: #### L AB103, LAB15, LAB20, LAB99 ####Medical Technician Assistant: LESLEE HERNANDEZ ([phone])[facility] (SBHLAB)[address] [place] [address] [place] CO2 [Moles/Vol] 23 mmol/L Normal 22-29 [facility] Comment on above: Performed By: #### L AB103, LAB15, LAB20, LAB99 ####Medical Technician Assistant: LESLEE HERNANDEZ ([phone])[facility] [place] ([facility])[address] Creatinine [Mass/Vol] 1.81 mg/dL High 0.72-1.25 [facility] Comment on above: Performed By: #### L AB103, LAB15, LAB20, LAB99 ####Medical Technician Assistant: LESLEE HERNANDEZ ([phone])[facility] ([facility])[address] GLOMERULAR FILTRATION RATE ML/MIN/1.73 SQ M.PREDICTED 46.1 mL/min/1.73m*2 Low >60.0 [facility] Comment on above: Result Comment: Calc ulation based on the Chronic Kidney Disease Epidemiology Collaboration (CKD-EPI) equation refit without adjustment for race Performed By: #### L AB103, LAB15, LAB20, LAB99 ####Medical Technician Assistant: LESLEE HERNANDEZ ([phone])[facility] ([facility])[address] [place] [address] Glucose [Mass/Vol] 115 mg/dL High 74-100 [facility] Comment on above: Performed By: #### L AB103, LAB15, LAB20, LAB99 ####Medical Technician Assistant: LESLEE HERNANDEZ ([phone])[facility])[address] Potassium [Moles/Vol] 4.2 mmol/L Normal 3.5-5.1 [facility] Comment on above: Result Comment: [facility] potassium values may be up to 0.5 mmol/L lower than serum values. Performed By: #### L AB103, LAB15, LAB20, LAB99 ####Medical Technician Assistant: LESLEE HERNANDEZ ([phone])[facility] ([facility])[address] Sodium [Moles/Vol] 137 mmol/L Normal 136-145 [facility] Comment on above: Performed By: #### L AB103, LAB15, LAB20, LAB99 ####Medical Technician Assistant: LESLEE HERNANDEZ ([phone])[facility] (SBHLAB)[address] Urea nitrogen [Mass/Vol] 33 mg/dL High 8-21 [facility] Comment on above: Performed By: #### L AB103, LAB15, LAB20, LAB99 ####Medical Technician Assistant: LESLEE HERNANDEZ ([phone])[facility] (SBHLAB)[address] Basic metabolic 1998 panelon 07-14-2024 Anion gap [Moles/Vol] 10 mmol/L 3 - 13 mmol/L [facility] [employer] Calcium [Mass/Vol] 8.3 mg/dL Low 8.4 - 10. 2 mg/dL [facility] [employer] Chloride [Moles/Vol] 104 mmol/L 98 - 10 7 mmol/L [facility] [employer] CO2 [Moles/Vol] 23 mmol/L 22 - 29 mmol/L [facility] [employer] Creatinine [Mass/Vol] 1.81 mg/dL High 0.72 - 1.25 mg/dL [facility] GFR/1.73 sq M.predicted (S/P/Bld) [Vol rate/Area] 46.1 mL/min Low - PINF [facility] Comment on above: Calculation based on the Chronic Kidney Disease Epidemiology Collaboration (CKD-EPI) equation refit without adjustment for race Glucose [Mass/Vol] 115 mg/dL High 74 - 100 mg/dL [facility] Interpretation and review of laboratory results Abnormal [facility] Potassium [Moles/Vol] 4.2 mmol/L 3.5 - 5.1 mmol/L [facility] Comment on above: Plasma potassium heidi ues may be up to 0.5 mmol/L lower than serum values. Sodium [Moles/Vol] 137 mmol/L 136 - 145 mmol/L [facility] Urea nitrogen [Mass/Vol] 33 mg/dL High 8 - 21 mg/dL [facility] [employer] HEPATIC FUNCTION PANELon Albumin [Mass/Vol] 3.1 g/dL Low 3.5-5.0 [facility] Comment on above: Performed By: #### L AB103, LAB15, LAB20, LAB99 ####Medical Technician Assistant: LESLEE MARY ([phone])[facility] (SBHLAB)[address] ALP [Catalytic activity/Vol] 229 U/L High 40-150 [facility] Comment on above: Performed By: #### L AB103, LAB15, LAB20, LAB99 ####Medical Technician Assistant: LESLEE MCNEILLRAMON ([phone])[facility] [place] (SBHLAB)[address] ALT [Catalytic activity/Vol] 109 U/L High <40 [facility] Comment on above: Performed By: #### L AB103, LAB15, LAB20, LAB99 ####Medical Technician Assistant: LESLEE MCNEILLRAMON ([phone])[facility] [place] (SBHLAB)[address] AST [Catalytic activity/Vol] 50 U/L High <34 [facility] Comment on above: Performed By: #### L AB103, LAB15, LAB20, LAB99 ####Medical Technician Assistant: LESLEE MCNEILLRAMON ([phone])[facility] [place] (SBHLAB)[address] Bilirubin [Mass/Vol] 1.3 mg/dL High <1.2 [facility] Comment on above: Performed By: #### L AB103, LAB15, LAB20, LAB99 ####Medical Technician Assistant: LESLEE MCNEILLRAMON ([phone])[facility] [place] (SBHLAB)[address] Bilirubin.indirect [Mass/Vol] 0.5 mg/dL High <0.5 [facility] Comment on above: Performed By: #### L AB103, LAB15, LAB20, LAB99 ####Medical Technician Assistant: LESLEE HERNANDEZ ([phone])[facility] [place] (SBHLAB)[address] Protein [Mass/Vol] 6.4 g/dL Normal 6.4-8.3 [facility] Comment on above: Result Comment: Seru m protein values are higher than plasma values. Samples from recumbent persons are lower by up to 0.5 g/dL as compared to ambulatory persons. After 60 years values are lower by up to 0.2 g/dL. Performed By: #### L AB103, LAB15, LAB20, LAB99 ####Medical Technician Assistant: LESLEE HERNANDEZ ([phone])[facility] (SBHLAB)[address] [place] [address] Hepatic function 2000 panelo n 07-14-2024 Albumin [Mass/Vol] 3.1 g/dL Low 3.5 - 5.0 g/dL [facility] ALP [Catalytic activity/Vol] 229 U/L High 40 - 150 U/L [facility] ALT [Catalytic activity/Vol] 109 U/L High NINF - 40 U/L [facility] AST [Catalytic activity/Vol] 50 U/L High NINF - 34 U/L [facility] [facility] Bil[facility] [Mass/Vol] 1.3 mg/dL [facility] Bilirubin.conjugated [Mass/Vol] 0.5 mg/dL [facility] mg/dL [facility] Interpretation and review of laboratory results Abnormal [facility] Protein [Mass/Vol] 6.4 g/dL 6.4 - 8.3 g/dL [facility] Comment on above: Serum protein values are higher than plasma values. Samples from recumbent persons are lower by up to 0.5 g/dL as compared to ambulatory persons. After 60 years values are lower by up to 0.2 g/dL. LIPASEon 07-14-2024 Lipase [Catalytic activity/Vol] 27 U/L Normal <55 [facility] Comment on above: Performed By: #### L AB103, LAB15, LAB20, LAB99 ####Medical Technician Assistant: LESLEE HERNANDEZ ([phone])[facility] ([facility])[address] [place] [address] Laboratory - Chemistry and C hemistry - challengeon 07-14-2024 Lipase [Catalytic activity/Vol] 27 U/L NINF - 55 U/L [facility] [employer] Magnesium [Mass/Vol] 2 mg/dL 1.6 - 2 .6 mg/dL [employer] Lipase [Catalytic activity/V ol]on 07-14-2024 Interpretation and review of laboratory results Normal [facility] [employer] MAGNESIUMon 07-14-2024 Magnesium [Mass/Vol] 2.0 mg/dL Normal 1.6-2.6 [facility] [employer] [facility] Comment on above: Result Comment: ALEJANDRO Aleman COMMENTS:Higher values can be expected in females during menses. Performed By: #### L AB103, LAB15, LAB20, LAB99 ####Medical Technician Assistant: LESLEE HERNANDEZ ([phone])[facility] ([facility])[address] [place] [address] Magnesium [Mass/Vol]on 07-14 Interpretation and review of laboratory results Normal [facility] [employer] Higher values can be expected in females during menses. [employer] No Panel InformationOrdered By: Radha Parikh on 07-14-2024 P Arden 82 degrees [employer] Work Phone: KS Interval 83 ms [employer] Work Phone: QRS Arden -26 degrees [employer] Work Phone: QRSD Interval 93 ms [employer] Work Phone: QT Interval 342 ms [employer] Work Phone: QTC Interval 546 ms [employer] Work Phone: T Wave Arden 242 degrees [employer] Work Phone: [employer] Work Phone: No Panel Informationon 07-14 Radha Parikh MD - 07/14/2024 IMPRESSION: Atrial tachycardia Abnormal R-wave progression, late transition Probable LVH with secondary repol abnrm Prolonged QT interval Electronically Signed On 07-14-2024 09:33:32 EST by Radha Parikh [facility] [employer] [facility] [employer] Progress Noteon 07-14-2024 [facility] [employer] [facility] Progress Note Normal [facility] Progress Note Normal [facility] Vital signsOrdered By: Radha Parikh on 07-14-2024 Heart rate 153 /min bpm [facility] Work Phone: BASIC METABOLIC PANELon 06-30 Anion gap [Moles/Vol] 9 mmol/L Normal 3-13 [facility] Comment on above: Performed By: #### L AB103, LAB15, [id number] ####Medical Technician Assistant: LESLEE HERNANDEZ ([phone])[facility] [place] ([facility])[address] Calcium [Mass/Vol] 8.1 mg/dL Low 8.4-10.2 [facility] Comment on above: Performed By: #### Pedro AB103, LAB15, [id number] ####Medical Technician Assistant: LESLEE HERNANDEZ ([phone])[facility] [place] ([facility])[address] Chloride [Moles/Vol] 105 mmol/L Normal 98-107 [facility] Comment on above: Performed By: #### Pedro ECHEVERRIA, LAB15, [id number] ####Medical Technician Assistant: LESLEE HERNANDEZ ([phone])[facility] [place] ([facility])[address] CO2 [Moles/Vol] 21 mmol/L Low 22-29 [facility] Comment on above: Performed By: #### Pedro ECHEVERRIA, LAB15, [id number] ####Medical Technician Assistant: LESLEE HERNANDEZ ([phone])[facility] [place] ([facility])[address] [place] [address] [place] Creatinine [Mass/Vol] 1.90 mg/dL High 0.72-1.25 [facility] Comment on above: Performed By: #### L AB103, LAB15, [id number] ####Medical Technician Assistant: LESLEE HERNANDEZ ([phone])[facility] [place] ([facility])[address] [place] [address] [place] GLOMERULAR FILTRATION RATE ML/MIN/1.73 SQ M.PREDICTED 43.5 mL/min/1.73m*2 Low >60.0 [facility] Comment on above: Result Comment: Calc ulation based on the Chronic Kidney Disease Epidemiology Collaboration (CKD-EPI) equation refit without adjustment for race Performed By: #### L AB103, LAB15, [id number] ####Medical Technician Assistant: LESLEE HERNANDEZ ([phone])[facility] ([facility])[address] Glucose [Mass/Vol] 126 mg/dL High 74-100 [facility] Comment on above: Performed By: #### L AB103, LAB15, [id number] ####Medical Technician Assistant: LESLEE HERNANDEZ ([phone])[facility] Potassium [Moles/Vol] 4.1 mmol/L Normal 3.5-5.1 [facility] Comment on above: Result Comment: [facility] potassium values may be up to 0.5 mmol/L lower than serum values. Performed By: #### L AB103, LAB15, [id number] ####Medical Technician Assistant: LESLEE HERNANDEZ ([phone])[facility] (HLAB)[address] Sodium [Moles/Vol] 135 mmol/L Low 136-145 [facility] Comment on above: Performed By: #### L AB103, LAB15, [id number] ####Medical Technician Assistant: LESLEE HERNANDEZ ([phone])[facility] ([facility])[address] [place] [address] [place] Urea nitrogen [Mass/Vol] 35 mg/dL High 8-21 [facility] Comment on above: Performed By: #### L AB103, LAB15, [id number] ####Medical Technician Assistant: LESLEE HERNANDEZ ([phone])[facility] ([facility])[address] Basic metabolic 1998 panelon 07-13-2024 Anion gap [Moles/Vol] 9 mmol/L 3 - 13 mmol/L [facility] Calcium [Mass/Vol] 8.1 mg/dL Low 8.4 - 10. 2 mg/dL [facility] Chloride [Moles/Vol] 105 mmol/L 98 - 10 7 mmol/L [facility] CO2 [Moles/Vol] 21 mmol/L Low 22 - 29 mmol/L [facility] Creatinine [Mass/Vol] 1.9 mg/dL High 0.72 - 1.25 mg/dL [facility] GFR/1.73 sq M.predicted (S/P/Bld) [Vol rate/Area] 43.5 mL/min Low - PINF [facility] Comment on above: Calculation based on the Chronic Kidney Disease Epidemiology Collaboration (CKD-EPI) equation refit without adjustment for race Glucose [Mass/Vol] 126 mg/dL High 74 - 100 mg/dL [facility] Interpretation and review of laboratory results Abnormal [facility] Potassium [Moles/Vol] 4.1 mmol/L 3.5 - 5.1 mmol/L [facility] Comment on above: Plasma potassium heidi ues may be up to 0.5 mmol/L lower than serum values. Sodium [Moles/Vol] 135 mmol/L Low 136 - 145 mmol/L [facility] Urea nitrogen [Mass/Vol] 35 mg/dL High 8 - 21 mg/dL [facility] CBC (HEMOGRAM)on 07-13-2024 Erythrocyte distribution width (RBC) [Ratio] 13.9 % Normal 11.5-15.0 [facility] Comment on above: Performed By: #### L AB294 ####Medical Technician Assistant: LESLEE HERNANDEZ ([phone])[facility] ([facility])[address] [place] [address] Hematocrit (Bld) [Volume fraction] 39.7 % Low 40.0-52.0 [facility] Comment on above: Performed By: #### L AB294 ####Medical Technician Assistant: LESLEE HERNANDEZ ([phone])[facility] ([facility])[address] [place] [address] Hemoglobin (Bld) [Mass/Vol] 12.9 g/dL Low 13.0-18.0 [facility] Comment on above: Performed By: #### L AB294 ####Medical Technician Assistant: LESLEE TURKTYRONE ([phone])[facility] ([facility])[address] MCH (RBC) [Entitic mass] 33.2 pg Normal 26.0-34.0 [facility] Comment on above: Performed By: #### L AB294 ####Medical Technician Assistant: LESLEE TURKTYRONE ([phone])[facility] ([facility])[address] MCHC 32.5 % Normal 30.5-36.0 [facility] Comment on above: Performed By: #### L AB294 ####Medical Technician Assistant: LESLEE MCNEILLRAMON ([phone])[facility] ([facility])[address] MCV (RBC) [Entitic vol] 102.3 fL High 77.0-99.0 [facility] Comment on above: Performed By: #### L AB294 ####Medical Technician Assistant: LESLEE MCNEILLNinoskaTYRONE ([phone])[facility] ([facility])[address] Platelet mean volume (Bld) [Entitic vol] 9.9 fL Normal 9.0-12.7 [facility] Comment on above: Performed By: #### L AB294 ####Medical Technician Assistant: LESLEE HERNANDEZ ([phone])[facility] (SB[facility]AB)[address] Platelets (Bld) [#/Vol] 232 10*3/uL Normal 140-440 [facility] Comment on above: Performed By: #### L AB294 ####Medical Technician Assistant: LESLEE TURKTYRONE ([phone])[facility] ([facility])[address] RBC (Bld) [#/Vol] 3.88 10*6/uL Low 4.40-5.90 [facility] Comment on above: Performed By: #### L AB294 ####Medical Technician Assistant: LESLEE HERNANDEZ ([phone])[facility] ([facility])[address] WBC (Bld) [#/Vol] 6.6 10*3/uL Normal 3.6-10.7 [facility] Comment on above: Performed By: #### L AB294 ####Medical Technician Assistant: LESLEE HERNANDEZ ([phone])[facility] ([facility])[address] CBC panel Auto (Bld)on 07-13 Erythrocyte distribution width (RBC) [Ratio] 13.9 % 11.5 - 15.0 % [facility] Hematocrit (Bld) [Volume fraction] 39.7 % Low 40.0 - 52.0 % [facility] Hemoglobin (Bld) [Mass/Vol] 12.9 g/dL Low 13.0 - 18.0 g/dL [facility] Interpretation and review of laboratory results Abnormal [facility] MCH (RBC) [Entitic mass] 33.2 pg 26.0 - 34.0 pg [facility] MCHC (RBC) [Mass/Vol] 32.5 % 30.5 - 36.0 % [facility] MCV (RBC) [Entitic vol] 102.3 fL High 77.0 - 99.0 fL [facility] Platelet mean volume (Bld) [Entitic vol] 9.9 fL 9.0 - 12.7 fL [facility] Platelets (Bld) [#/Vol] 232 10*3/uL 140 - 440 10*3/uL [facility] RBC (Bld) [#/Vol] 3.88 10*6/uL Low 4.40 - 5.9 0 10*6/uL [facility] WBC (Bld) [#/Vol] 6.6 10*3/uL 3.6 - 10.7 10*3/uL [facility] Laboratory - Chemistry and C hemistry - challengeon 07-13-2024 Magnesium [Mass/Vol] 2 mg/dL 1.6 - 2 .6 mg/dL [facility] MAGNESIUMon 07-13-2024 Magnesium [Mass/Vol] 2.0 mg/dL Normal 1.6-2.6 [facility] Comment on above: Result Comment: ORDE R COMMENTS:Higher values can be expected in females during menses. Performed By: #### L AB103, LAB15, [id number] ####Medical Technician Assistant: LESLEE HERNANDEZ ([phone])[facility] (HLAB)[address] Magnesium [Mass/Vol]on 07-13 Interpretation and review of laboratory results Normal [facility] Higher values can be expected in females during menses. [facility] NT PRO BNPon 07-13-2024 Natriuretic peptide B (Bld) [Mass/Vol] 74246 pg/mL High <125 [facility] Comment on above: Performed By: #### L AB103, LAB15, [id number] ####Medical Technician Assistant: LESLEE HERNANDEZ ([phone])[facility] (HLAB)[address] Natriuretic peptide B [Mass/ Vol]on 07-13-2024 Interpretation and review of laboratory results Abnormal [facility] Natriuretic peptide B (Bld) [Mass/Vol] 58294 pg/mL High NINF - 125 pg/mL [facility] No Panel Informationon 07-13 [facility] Nursing Noteon 07-13-2024 Nursing Note 11 beat wide complex beats-denied symptoms to this RN. Dr Jeter spoke at length to pt re: health risks with refusing intervention. Normal [facility] Progress Noteon 07-13-2024 Progress Note He developed sinus tach on tele EKG obtained 5mg of lopressor ordered He then spontaneously went back to normal rhythm before being given. He did have fluttering in his chest, all symptoms now resolved EKG of sinus tach is in epic Normal [facility] Progress Note Normal [facility] Progress Note Normal [facility] Progress Note Nutrition rescreen completed. Chart reviewed. Patient to be monitored and followed by the diet biomedical instrument technician. Normal [facility] 30on 07-12-2024 30 Normal [facility] APTTon 07-12-2024 aPTT Coag (Bld) [Time] 41.9 s High 20.0-30.5 [facility] Comment on above: Result Comment: ALEJANDRO Aleman COMMENTS:NOTE: The therapeutic time for Heparin anticoagulation, based on Xa activity inhibition, is an APTT of 46-80 seconds. Performed By: #### L AB325 ####Medical Technician Assistant: LESLEE HERNANDEZ ([phone])[facility])[address] aPTT Coag (Bld) [Time] 59.4 s High 20.0-30.5 [facility] Comment on above: Result Comment: ALEJANDRO Aleman COMMENTS:NOTE: The therapeutic time for Heparin anticoagulation, based on Xa activity inhibition, is an APTT of 46-80 seconds. Performed By: #### L AB325 ####Medical Technician Assistant: LESLEE HERNANDEZ ([phone])[facility] ([facility])[address] BASIC METABOLIC PANELon 01- Anion gap [Moles/Vol] 11 mmol/L Normal 3-13 [facility] Comment on above: Performed By: #### L AB15, [id number] ####Medical Technician Assistant: LESLEE HERNANDEZ ([phone])[facility] ([facility])[address] Calcium [Mass/Vol] 8.7 mg/dL Normal 8.4-10.2 [facility] Comment on above: Performed By: #### L AB15, [id number] ####Medical Technician Assistant: LESLEE HERNANDEZ ([phone])[facility] ([facility])[address] Chloride [Moles/Vol] 108 mmol/L High 98-107 [facility] Comment on above: Performed By: #### L AB15, [id number] ####Medical Technician Assistant: LESLEE HERNANDEZ ([phone])[facility] ([facility])[address] CO2 [Moles/Vol] 22 mmol/L Normal 22-29 [facility] Comment on above: Performed By: #### L AB15, [id number] ####Medical Technician Assistant: LESLEE HERNANDEZ ([phone])[facility] ([facility])[address] Creatinine [Mass/Vol] 1.90 mg/dL High 0.72-1.25 [facility] Comment on above: Performed By: #### L AB15, [id number] ####Medical Technician Assistant: LESLEE HERNANDEZ ([phone])[facility] ([facility])[address] GLOMERULAR FILTRATION RATE ML/MIN/1.73 SQ M.PREDICTED 43.5 mL/min/1.73m*2 Low >60.0 [facility] Comment on above: Result Comment: Calc ulation based on the Chronic Kidney Disease Epidemiology Collaboration (CKD-EPI) equation refit without adjustment for race Performed By: #### L AB15, [id number] ####Medical Technician Assistant: LESLEE HERNANDEZ ([phone])[facility] [place] ([facility])[address] Glucose [Mass/Vol] 124 mg/dL High 74-100 [facility] Comment on above: Performed By: #### L AB15, [id number] ####Medical Technician Assistant: LESLEE HERNANDEZ ([phone])[facility] Potassium [Moles/Vol] 4.5 mmol/L Normal 3.5-5.1 [facility] Comment on above: Result Comment: [facility] potassium values may be up to 0.5 mmol/L lower than serum values. Performed By: #### L AB15, [id number] ####Medical Technician Assistant: LESLEE HERNANDEZ ([phone])[facility] ([facility])[address] [place] [address] [place] Sodium [Moles/Vol] 141 mmol/L Normal 136-145 [facility] Comment on above: Performed By: #### L AB15, [id number] ####Medical Technician Assistant: LESLEE HERNANDEZ ([phone])[facility] [place] ([facility])[address] Urea nitrogen [Mass/Vol] 31 mg/dL High 8-21 [facility] Comment on above: Performed By: #### L AB15, [id number] ####Medical Technician Assistant: LESLEE HERNANDEZ ([phone])[facility] JENNY (SB[facility]AB)[address] Basic metabolic 1998 panelon 07-12-2024 Anion gap [Moles/Vol] 11 mmol/L 3 - 13 mmol/L [facility] Calcium [Mass/Vol] 8.7 mg/dL 8.4 - 10. 2 mg/dL [facility] Chloride [Moles/Vol] 108 mmol/L High 98 - 10 7 mmol/L [facility] CO2 [Moles/Vol] 22 mmol/L 22 - 29 mmol/L [facility] Creatinine [Mass/Vol] 1.9 mg/dL High 0.72 - 1.25 mg/dL [facility] GFR/1.73 sq M.predicted (S/P/Bld) [Vol rate/Area] 43.5 mL/min Low - PINF [facility] Comment on above: Calculation based on the Chronic Kidney Disease Epidemiology Collaboration (CKD-EPI) equation refit without adjustment for race Glucose [Mass/Vol] 124 mg/dL High 74 - 100 mg/dL [facility] Interpretation and review of laboratory results Abnormal [facility] Potassium [Moles/Vol] 4.5 mmol/L 3.5 - 5.1 mmol/L [facility] Comment on above: Plasma potassium heidi ues may be up to 0.5 mmol/L lower than serum values. Sodium [Moles/Vol] 141 mmol/L 136 - 145 mmol/L [facility] Urea nitrogen [Mass/Vol] 31 mg/dL High 8 - 21 mg/dL [facility] CBC W Auto Differential pane l (Bld)Ordered By: Roberto Puckett on 07-12-2024 Basophils (Bld) [#/Vol] 0 10*3/uL 0.0 - 0.2 10*3/uL [facility] Basophils/100 WBC (Bld) 0.5 % 0.0 - 2.0 % [facility] Eosinophils (Bld) [#/Vol] 0 10*3/uL 0.0 - 0.5 10*3/uL [facility] Eosinophils/100 WBC (Bld) 0.4 % 0.0 - 6.0 % [facility] Erythrocyte distribution width (RBC) [Ratio] 14.3 % 11.5 - 15.0 % [facility] Hematocrit (Bld) [Volume fraction] 45.6 % 40.0 - 52.0 % [facility] Hemoglobin (Bld) [Mass/Vol] 14.4 g/dL 13.0 - 18.0 g/dL [facility] Immature granulocytes (Bld) [#/Vol] 0 10*3/uL NINF - 0.1 10*3/uL [facility] Immature granulocytes/100 WBC (Bld) 0.1 % 0.0 - 2.0 % [facility] Interpretation and review of laboratory results Abnormal [facility] Lymphocytes (Bld) [#/Vol] 2.7 10*3/uL 1.0 - 4.3 10*3/uL [facility] Lymphocytes/100 WBC (Bld) 32.6 % 15.0 - 45.0 % [facility] MCH (RBC) [Entitic mass] 33.2 pg 26.0 - 34.0 pg [facility] MCHC (RBC) [Mass/Vol] 31.6 % 30.5 - 36.0 % [facility] MCV (RBC) [Entitic vol] 105.1 fL High 77.0 - 99.0 fL [facility] Monocytes (Bld) [#/Vol] 0.6 10*3/uL 0.0 - 0.9 10*3/uL [facility] Monocytes/100 WBC (Bld) 7.7 % 5.0 - 13.0 % [facility] Neutrophils (Bld) [#/Vol] 4.8 10*3/uL 1.8 - 7.5 10*3/uL [facility] Neutrophils/100 WBC (Bld) 58.7 % 38.0 - 82.0 % [facility] Nucleated RBC/100 WBC (Bld) [Ratio] 0 % [facility] Platelet mean volume (Bld) [Entitic vol] 9.8 fL 9.0 - 12.7 fL [facility] Platelets (Bld) [#/Vol] 246 10*3/uL 140 - 440 10*3/uL [facility] RBC (Bld) [#/Vol] 4.34 10*6/uL Low 4.40 - 5.9 0 10*6/uL [facility] WBC (Bld) [#/Vol] 8.2 10*3/uL 3.6 - 10.7 10*3/uL [facility] CBC WITH AUTO DIFFERENTIALon 07-12-2024 Basophils (Bld) [#/Vol] 0.0 10*3/uL Normal 0.0-0.2 [facility] Comment on above: Performed By: #### L [id number] ####Medical Technician Assistant: LESLEE HERNANDEZ ([phone])[facility] [place] ([facility])[address] Basophils/100 WBC (Bld) 0.5 % Normal 0.0-2.0 [facility] Comment on above: Performed By: #### L [id number] ####Medical Technician Assistant: LESLEE HERNANDEZ ([id number])[facility] [place] (SB[facility])[address] [place] [address] [place] Eosinophils (Bld) [#/Vol] 0.0 10*3/uL Normal 0.0-0.5 [facility] Comment on above: Performed By: #### L [id number] ####Medical Technician Assistant: LESLEE HERNANDEZ ([phone])[facility] [place] ([facility])[address] Eosinophils/100 WBC (Bld) 0.4 % Normal 0.0-6.0 [facility] Comment on above: Performed By: #### L [id number] ####Medical Technician Assistant: LESLEE HERNANDEZ ([phone])[facility] [place] ([facility])[address] Erythrocyte distribution width (RBC) [Ratio] 14.3 % Normal 11.5-15.0 [facility] Comment on above: Performed By: #### L [id number] ####Medical Technician Assistant: LESLEE HERNANDEZ ([phone])[facility] [place] ([facility])[address] Hematocrit (Bld) [Volume fraction] 45.6 % Normal 40.0-52.0 [facility] Comment on above: Performed By: #### L [id number] ####Medical Technician Assistant: LESLEE HERNANDEZ ([phone])[facility] [place] (SB[facility])[address] Hemoglobin (Bld) [Mass/Vol] 14.4 g/dL Normal 13.0-18.0 [facility] Comment on above: Performed By: #### L [id number] ####Medical Technician Assistant: LESLEE HERNANDEZ ([phone])[facility] [place] [address] IMMATURE GRANS % 0.1 % Normal 0.0-2.0 [facility] Comment on above: Performed By: #### L [id number] ####Medical Technician Assistant: LESLEE HERNANDEZ ([phone])[facility] ([facility])[address] [place] [address] IMMATURE GRANS ABSOLUTE 0.0 10*3/uL Normal <0.1 [facility] Comment on above: Performed By: #### L [id number] ####Medical Technician Assistant: LESLEE HERNANDEZ ([phone])[facility] [place] [address] Lymphocytes (Bld) [#/Vol] 2.7 10*3/uL Normal 1.0-4.3 [facility] Comment on above: Performed By: #### L [id number] ####Medical Technician Assistant: LESLEE HERNANDEZ ([phone])[facility] [place] [address] Lymphocytes/100 WBC (Bld) 32.6 % Normal 15.0-45.0 [facility] Comment on above: Performed By: #### L [id number] ####Medical Technician Assistant: LESLEE HERNANDEZ ([phone])[facility] (SBAB)[address] [place] [address] MCH (RBC) [Entitic mass] 33.2 pg Normal 26.0-34.0 [facility] Comment on above: Performed By: #### L [id number] ####Medical Technician Assistant: LESLEE HERNANDEZ ([phone])[facility] [place] ([facility])[address] MCHC 31.6 % Normal 30.5-36.0 [facility] Comment on above: Performed By: #### L [id number] ####Medical Technician Assistant: LESLEE HERNANDEZ ([phone])[facility] [place] ([facility])[address] MCV (RBC) [Entitic vol] 105.1 fL High 77.0-99.0 [facility] Comment on above: Performed By: #### L [id number] ####Medical Technician Assistant: LESLEE HERNANDEZ ([phone])[facility] [place] (SBHLAB)[address] Monocytes (Bld) [#/Vol] 0.6 10*3/uL Normal 0.0-0.9 [facility] Comment on above: Performed By: #### L [id number] ####Medical Technician Assistant: LESLEE HERNANDEZ ([phone])[facility] [place] (SBHLAB)[address] Monocytes/100 WBC (Bld) 7.7 % Normal 5.0-13.0 [facility] Comment on above: Performed By: #### L [id number] ####Medical Technician Assistant: LESLEE HERNANDEZ ([phone])[facility] [place] (SBHLAB)[address] NEUTROPHILS ABSOLUTE 4.8 10*3/uL Normal 1.8-7.5 [facility] Comment on above: Performed By: #### L [id number] ####Medical Technician Assistant: LESLEE HERNANDEZ ([phone])[facility] [place] (SBHLAB)[address] Neutrophils/100 WBC (Bld) 58.7 % Normal 38.0-82.0 [facility] Comment on above: Performed By: #### L [id number] ####Medical Technician Assistant: LESLEE HERNANDEZ ([phone])[facility] (SBHLAB)[address] [place] [address] NRBC 0.0 /100 WBCs Normal 0.0-2.0 [facility] Comment on above: Performed By: #### L [id number] ####Medical Technician Assistant: LESLEE HERNANDEZ ([phone])[facility] [place] (SBHLAB)[address] Platelet mean volume (Bld) [Entitic vol] 9.8 fL Normal 9.0-12.7 [facility] Comment on above: Performed By: #### L [id number] ####Medical Technician Assistant: LESLEE HERNANDEZ ([phone])[facility] (SBHLAB)[address] [place] [address] Platelets (Bld) [#/Vol] 246 10*3/uL Normal 140-440 [facility] Comment on above: Performed By: #### L [id number] ####Medical Technician Assistant: LESLEE HERNANDEZ ([phone])[facility] (SBHLAB)[address] [place] [address] RBC (Bld) [#/Vol] 4.34 10*6/uL Low 4.40-5.90 [facility] Comment on above: Performed By: #### L [id number] ####Medical Technician Assistant: LESLEE HERNANDEZ ([phone])[facility] [place] (SBHLAB)[address] [place] [address] WBC (Bld) [#/Vol] 8.2 10*3/uL Normal 3.6-10.7 [facility] Comment on above: Performed By: #### L [id number] ####Medical Technician Assistant: LESLEE HERNANDEZ ([phone])[facility] (SBHLAB)[address] [place] [address] COMPREHENSIVE METABOLIC PANE Ming 07-12-2024 Albumin [Mass/Vol] 3.0 g/dL Low 3.5-5.0 [facility] Comment on above: Performed By: #### L AB103, [id number], LAB17 ####Medical Technician Assistant: LESLEE HERNANDEZ ([phone])[facility] [place] (SBHLAB)[address] ALP [Catalytic activity/Vol] 181 U/L High 40-150 [facility] Comment on above: Performed By: #### L AB103, [id number], LAB17 ####Medical Technician Assistant: LESLEE HERNANDEZ ([phone])[facility] [place] (SBHLAB)[address] ALT [Catalytic activity/Vol] 127 U/L High <40 [facility] Comment on above: Performed By: #### L AB103, [id number], LAB17 ####Medical Technician Assistant: LESLEE HERNANDEZ ([phone])[facility] [place] (SBHLAB)[address] Anion gap [Moles/Vol] 12 mmol/L Normal 3-13 [facility] Comment on above: Performed By: #### L AB103, [id number], LAB17 ####Medical Technician Assistant: LESLEE HERNANDEZ ([phone])[facility] [place] (SBHLAB)[address] AST [Catalytic activity/Vol] 63 U/L High <34 [facility] Comment on above: Performed By: #### L AB103, [id number], LAB17 ####Medical Technician Assistant: LESLEE HERNANDEZ ([phone])[facility] [place] (SBHLAB)155 [place] [address] [place] Bilirubin [Mass/Vol] 2.0 mg/dL High <1.2 [facility] Comment on above: Performed By: #### L AB103, [id number], LAB17 ####Medical Technician Assistant: LESLEE HERNANDEZ ([phone])[facility] [place] (SBHLAB)155 [place] [address] [place] Calcium [Mass/Vol] 8.6 mg/dL Normal 8.4-10.2 [facility] Comment on above: Performed By: #### L AB103, [id number], LAB17 ####Medical Technician Assistant: LESLEE HERNANDEZ ([phone])[facility] [place] (SBHLAB)[address] Chloride [Moles/Vol] 107 mmol/L Normal 98-107 [facility] Comment on above: Performed By: #### L AB103, [id number], LAB17 ####Medical Technician Assistant: LESLEE HERNANDEZ ([phone])[facility] (SBHLAB)[address] CO2 [Moles/Vol] 20 mmol/L Low 22-29 [facility] Comment on above: Performed By: #### L AB103, [id number], LAB17 ####Medical Technician Assistant: LESLEE HERNANDEZ ([id number])[facility] (SBHLAB)[address] Creatinine [Mass/Vol] 1.79 mg/dL High 0.72-1.25 [facility] Comment on above: Performed By: #### L AB103, [id number], LAB17 ####Medical Technician Assistant: LESLEE HERNANDEZ ([phone])[facility] (SBHLAB)[address] GLOMERULAR FILTRATION RATE ML/MIN/1.73 SQ M.PREDICTED 46.7 mL/min/1.73m*2 Low >60.0 [facility] Comment on above: Result Comment: Calc ulation based on the Chronic Kidney Disease Epidemiology Collaboration (CKD-EPI) equation refit without adjustment for race Performed By: #### L AB103, VCG100, LAB17 ####Medical Technician Assistant: LESLEE HERNANDEZ ([phone])[facility] (SBHLAB)[address] Glucose [Mass/Vol] 104 mg/dL High 74-100 [facility] Comment on above: Performed By: #### L AB103, [id number], LAB17 ####Medical Technician Assistant: LESLEE HERNANDEZ ([phone])[facility] (SBHLAB)[address] Potassium [Moles/Vol] 4.5 mmol/L Normal 3.5-5.1 [facility] Comment on above: Result Comment: [facility] potassium values may be up to 0.5 mmol/L lower than serum values. Performed By: #### L AB103, [id number], LAB17 ####Medical Technician Assistant: LESLEE HERNANDEZ ([phone])[facility] (SBHLAB)[address] Protein [Mass/Vol] 6.0 g/dL Low 6.4-8.3 [facility] Comment on above: Performed By: #### L AB103, [id number], LAB17 ####Medical Technician Assistant: LESLEE HERNANDEZ ([id number])[facility] (SBHLAB)[address] Sodium [Moles/Vol] 139 mmol/L Normal 136-145 [facility] Comment on above: Performed By: #### L AB103, [id number], LAB17 ####Medical Technician Assistant: LESLEE HERNANDEZ ([phone])[facility] (SBHLAB)[address] Urea nitrogen [Mass/Vol] 31 mg/dL High 8-21 [facility] Comment on above: Performed By: #### L AB103, [id number], LAB17 ####Medical Technician Assistant: LESLEE HERNANDEZ ([phone])[facility] (SBHLAB)[address] Comprehensive metabolic 1998 panelon 07-12-2024 Albumin [Mass/Vol] 3 g/dL Low 3.5 - 5.0 g/dL [facility] ALP [Catalytic activity/Vol] 181 U/L High 40 - 150 U/L [facility] ALT [Catalytic activity/Vol] 127 U/L High NINF - 40 U/L [facility] Anion gap [Moles/Vol] 12 mmol/L 3 - 13 mmol/L [facility] AST [Catalytic activity/Vol] 63 U/L High NINF - 34 U/L [facility] Bilirubin [Mass/Vol] 2 mg/dL High NINF - 1.2 mg/dL [facility] Calcium [Mass/Vol] 8.6 mg/dL 8.4 - 10. 2 mg/dL [facility] Chloride [Moles/Vol] 107 mmol/L 98 - 10 7 mmol/L [facility] CO2 [Moles/Vol] 20 mmol/L Low 22 - 29 mmol/L [facility] Creatinine [Mass/Vol] 1.79 mg/dL High 0.72 - 1.25 mg/dL [facility] GFR/1.73 sq M.predicted (S/P/Bld) [Vol rate/Area] 46.7 mL/min Low - PINF [facility] Comment on above: Calculation based on the Chronic Kidney Disease Epidemiology Collaboration (CKD-EPI) equation refit without adjustment for race Glucose [Mass/Vol] 104 mg/dL High 74 - 100 mg/dL [facility] Interpretation and review of laboratory results Abnormal [facility] Potassium [Moles/Vol] 4.5 mmol/L 3.5 - 5.1 mmol/L [facility] Comment on above: Plasma potassium heidi ues may be up to 0.5 mmol/L lower than serum values. Protein [Mass/Vol] 6 g/dL Low 6.4 - 8.3 g/dL [facility] Sodium [Moles/Vol] 139 mmol/L 136 - 145 mmol/L [facility] Urea nitrogen [Mass/Vol] 31 mg/dL High 8 - 21 mg/dL [facility] Consulton 07-12-2024 Consult Normal [facility] ECG 12-LEADon 07-12-2024 ECG 12-LEAD IMPRESSION: Sinus tachycardia Left ventricular hypertrophy Nonspecific T abnormalities, lateral leads Borderline prolonged QT interval Compared to ECG 07/11/24 at 1831 No significant change Electronically Signed On 07-12-2024 06:02:51 EST by Chas Haddad [facility] ECG 12-LEAD IMPRESSION: Sinus tachycardia LVH with secondary repolarization abnormality Borderline prolonged QT interval Compared to ECG 07/03/24 No significant change Electronically Signed On 07-12-2024 06:02:00 EST by Chas Haddad [facility] ED Nursing Noteon 07-12-2024 ED Nursing Note APTT drawn by venipuncture, previous specimen also drawn by venipuncture Normal [facility] HIGH SENSITIVITY TROPONIN, S ERIAL, THIRD TESTon 07-12-2024 TROPONIN HS DELTA, SECOND TO THIRD -3 ng/L Normal <=2 [facility] Comment on above: Result Comment: A tr oponin delta greater than or equal to 15 ng/L is suggestive of acute cardiac injury. Values less than 15, see clinical guidance for ED and Inpatient algorithms. Performed By: #### L AB129, [id number] ####Medical Technician Assistant: LESLEE HERNANDEZ ([id number])[facility] (SBHLAB)[address] [place] [address] TROPONIN HS, SERIAL REFLEX, TEST THREE 218 ng/L Critically high <=35 [facility] Comment on above: Performed By: #### L AB129, [id number] ####Medical Technician Assistant: LESLEE HERNANDEZ ([phone])[facility] (SBAB)[address] [place] [address] Laboratory - Chemistry and C hemistry - challengeon 07-12-2024 Magnesium [Mass/Vol] 2.1 mg/dL 1.6 - 2 .6 mg/dL [facility] Magnesium [Mass/Vol] 2.2 mg/dL 1.6 - 2 .6 mg/dL [facility] TSH Qn 0.68 m[IU]/L [facility] MAGNESIUMon 07-12-2024 Magnesium [Mass/Vol] 2.1 mg/dL Normal 1.6-2.6 [facility] Comment on above: Result Comment: ALEJANDRO R COMMENTS:Higher values can be expected in females during menses. Performed By: #### L AB103, [id number], LAB17 ####Medical Technician Assistant: LESLEE HERNANDEZ ([phone])[facility] (SBAB)[address] [place] [address] Magnesium [Mass/Vol] 2.2 mg/dL Normal 1.6-2.6 [facility] Comment on above: Result Comment: ORDE R COMMENTS:Higher values can be expected in females during menses. Performed By: #### L AB15, [id number] ####Medical Technician Assistant: LESLEE HERNANDEZ ([phone])[facility] (SBHLAB)[address] Magnesium [Mass/Vol]on 07-12 Interpretation and review of laboratory results Normal [facility] Higher values can be expected in females during menses. [facility] Interpretation and review of laboratory results Normal [facility] Higher values can be expected in females during menses. [facility] NT PRO BNPon 07-12-2024 Natriuretic peptide B (Bld) [Mass/Vol] 94128 pg/mL High <125 [facility] Comment on above: Performed By: #### L AB103, [id number], LAB17 ####Medical Technician Assistant: LESLEE HERNANDEZ ([phone])[facility] (SBHLAB)[address] [place] [address] Natriuretic peptide B [Mass/ Vol]on 07-12-2024 Interpretation and review of laboratory results Abnormal [facility] Natriuretic peptide B (Bld) [Mass/Vol] 70987 pg/mL High NINF - 125 pg/mL [facility] No Panel Informationon 07-12 [facility] P Ar[place] 58 degrees [facility] [place] Interval 142 ms [facility] QRS [place] -16 degrees [facility] QRSD [facility] [address] [facility] 364 ms [facility] QTC Interval 488 ms [facility] T Wave [place] 103 degrees [facility] Sinus tachycardia Left ventricular hypertrophy Nonspecific [...] On 07-12-2024 06:02:51 EST by Chas Haddad [facility] Sinus tachycardia LVH with secondary repolarization abnormality Borderline prolonged QT interval Compared to ECG 07/03/24 No significant change Electronically Signed On 07-12-2024 06:02:00 EST by Chas Kaufman D O - 07/12/2024 IMPRESSION: Sinus tachycardia LVH with secondary repolarization abnormality Borderline prolonged QT interval Compared to ECG 07/03/24 No significant change Electronically Signed On 07-12-2024 06:02:00 EST by Chas Haddad [facility] [employer] [facility] [employer] Interpretation and review of laboratory results Abnormal [facility] [employer] Troponin HS Delta, Second to Third -3 ng/L NINF - 2 ng/L [facility] Comment [facility] above: A troponin delta gre ater than or equal to 15 ng/L is suggestive of acute cardiac injury. Values less than 15, see clinical guidance for ED and Inpatient algorithms. Troponin HS, Serial Third 218 ng/L Critically high NINF - 35 ng/L [facility] [employer] No Panel InformationOrdered By: Chas Haddad on 07-12-2024 P Arden 52 degrees [employer] Phone: [place] Interval 147 ms [employer] [facility] Phone: QRS Arden -30 degrees [employer] Phone: QRSD Interval 93 ms [employer] Work Phone: QT Interval 355 ms [facility] Phone: QTC Interval 480 ms [employer] Work Phone: T Wave [place] 127 degrees [employer] Phone: [employer] Phone: Nursing Noteon 07-12-2024 Nursing Note Patient does not wan t to take his sodium bicarb until 2pm. Normal [facility] 07-12-2024 Progress Note Normal [employer] [facility] THYROID STIMULATING HORMONEo n 07-12-2024 THYROID STIMULATING HORMONE 0.68 uIU/mL Normal 0.35-4.94 [facility] [employer] [facility] Comment on above: Performed By: #### L AB129, [id number] ####Medical Technician Assistant: LESLEE HERNANDEZ ([phone])[facility] (SBHLAB)[address] [place] [address] TSH Qnon 07-12-2024 Interpretation and review of laboratory results Normal [facility] Vital signson 07-12-2024 Heart rate 108 /min bpm [facility] Vital signsOrdered By: Clementina Haddad on 07-12-2024 Heart rate 110 /min bpm [facility] Work Phone: aPTT Coag (Bld) [Time]on aPTT Coag (PPP) [Time] 41.9 s High 20.0 - 30.5 s [facility] Interpretation and review of laboratory results Abnormal [facility] NOTE: The therapeuti c time for Heparin anticoagulation, based on Xa activity inhibition, is an APTT of 46-80 seconds. [facility] aPTT Coag (PPP) [Time] 59.4 s High 20.0 - 30.5 s [facility] Interpretation and review of laboratory results Abnormal [facility] NOTE: The therapeuti c time for Heparin anticoagulation, based on Xa activity inhibition, is an APTT of 46-80 seconds. [facility] APTTon 07-11-2024 aPTT Coag (Bld) [Time] 24.2 s Normal 20.0-30.5 [facility] Comment on above: Result Comment: ALEJANDRO Aleman COMMENTS:NOTE: The therapeutic time for Heparin anticoagulation, based on Xa activity inhibition, is an APTT of 46-80 seconds. Performed By: #### L AB325 ####Medical Technician Assistant: LESLEE HERNANDEZ ([phone])[facility] (SBHLAB)[address] BASIC METABOLIC PANELon 06-30 Anion gap [Moles/Vol] 15 mmol/L High -13 [facility] Comment on above: Performed By: #### L AB106, LAB15, [id number], LAB20 ####Medical Technician Assistant: LESLEE HERNANDEZ ([phone])[facility] (SBHLAB)[address] Calcium [Mass/Vol] 8.8 mg/dL Normal 8.4-10.2 [facility] Comment on above: Performed By: #### L AB106, LAB15, [id number], LAB20 ####Medical Technician Assistant: LESLEE HERNANDEZ ([id number])[facility] (SBHLAB)[address] Chloride [Moles/Vol] 106 mmol/L Normal 98-107 [facility] Comment on above: Performed By: #### L AB106, LAB15, [id number], LAB20 ####Medical Technician Assistant: LESLEE HERNANDEZ ([phone])[facility] CO2 [Moles/Vol] 20 mmol/L Low 22-29 [facility] Comment on above: Performed By: #### L AB106, LAB15, [id number], LAB20 ####Medical Technician Assistant: LESLEE HERNANDEZ ([phone])[facility] ([facility])[address] [place] [address] Creatinine [Mass/Vol] 1.70 mg/dL High 0.72-1.25 [facility] Comment on above: Performed By: #### L AB106, LAB15, [id number], LAB20 ####Medical Technician Assistant: LESLEE HERNANDEZ ([phone])[facility] ([facility])[address] GLOMERULAR FILTRATION RATE ML/MIN/1.73 SQ M.PREDICTED 49.7 mL/min/1.73m*2 Low >60.0 [facility] Comment on above: Result Comment: Calc ulation based on the Chronic Kidney Disease Epidemiology Collaboration (CKD-EPI) equation refit without adjustment for race Performed By: #### L AB106, LAB15, [id number], LAB20 ####Medical Technician Assistant: LESLEE HERNANDEZ ([phone])[facility] ([facility])[address] Glucose [Mass/Vol] 97 mg/dL Normal 74-100 [facility] Comment on above: Performed By: #### L AB106, LAB15, [id number], LAB20 ####Medical Technician Assistant: LESLEE TURKTYRONE ([phone])[facility] (SBHLAB)[address] Potassium [Moles/Vol] 4.6 mmol/L Normal 3.5-5.1 [facility] Comment on above: Result Comment: [facility] potassium values may be up to 0.5 mmol/L lower than serum values. Performed By: #### L AB106, LAB15, [id number], LAB20 ####Medical Technician Assistant: LESLEE HERNANDEZ ([phone])[facility] (SBHLAB)[address] Sodium [Moles/Vol] 141 mmol/L Normal 136-145 [facility] Comment on above: Performed By: #### L AB106, LAB15, [id number], LAB20 ####Medical Technician Assistant: LESLEE TORRESCER ([phone])[facility] (SBHLAB)[address] Urea nitrogen [Mass/Vol] 30 mg/dL High 8-21 [facility] Comment on above: Performed By: #### L AB106, LAB15, [id number], LAB20 ####Medical Technician Assistant: LESLEE HERNANDEZ ([phone])[facility] (SBHLAB)[address] Basic metabolic 1998 panelon 07-11-2024 Anion gap [Moles/Vol] 15 mmol/L High 3 - 13 mmol/L [facility] Calcium [Mass/Vol] 8.8 mg/dL 8.4 - 10. 2 mg/dL [facility] Chloride [Moles/Vol] 106 mmol/L 98 - 10 7 mmol/L [facility] CO2 [Moles/Vol] 20 mmol/L Low 22 - 29 mmol/L [facility] Creatinine [Mass/Vol] 1.7 mg/dL High 0.72 - 1.25 mg/dL [facility] GFR/1.73 sq M.predicted (S/P/Bld) [Vol rate/Area] 49.7 mL/min Low - PINF [facility] Comment on above: Calculation based on the Chronic Kidney Disease Epidemiology Collaboration (CKD-EPI) equation refit without adjustment for race Glucose [Mass/Vol] 97 mg/dL 74 - 100 mg/dL [facility] Potassium [Moles/Vol] 4.6 mmol/L 3.5 - 5.1 mmol/L [facility] Comment on above: Plasma potassium heidi ues may be up to 0.5 mmol/L lower than serum values. Sodium [Moles/Vol] 141 mmol/L 136 - 145 mmol/L [facility] [employer] Urea nitrogen [Mass/Vol] 30 mg/dL High 8 - 21 mg/dL [facility] CBC W Auto Differential pane l (Bld)on 07-11-2024 Basophils (Bld) [#/Vol] 0 10*3/uL 0.0 - 0.2 10*3/uL [facility] Basophils/100 WBC (Bld) 0.4 % 0.0 - 2.0 % [facility] Eosinophils (Bld) [#/Vol] 0 10*3/uL 0.0 - 0.5 10*3/uL [facility] Eosinophils/100 WBC (Bld) 0.2 % 0.0 - 6.0 % [facility] Erythrocyte distribution width (RBC) [Ratio] 14 % 11.5 - 15.0 % [facility] Hematocrit (Bld) [Volume fraction] 48.4 % 40.0 - 52.0 % [facility] Hemoglobin (Bld) [Mass/Vol] 15.5 g/dL 13.0 - 18.0 g/dL [facility] Immature granulocytes (Bld) [#/Vol] 0 10*3/uL NINF - 0.1 10*3/uL [facility] [employer] Immature granulocytes/100 WBC (Bld) 0.2 % 0.0 - 2.0 % [facility] Interpretation and review of laboratory results Abnormal [facility] Lymphocytes (Bld) [#/Vol] 2.4 10*3/uL 1.0 - 4.3 10*3/uL [facility] Lymphocytes/100 WBC (Bld) 28.9 % 15.0 - 45.0 % [facility] MCH (RBC) [Entitic mass] 32.9 pg 26.0 - 34.0 pg [facility] MCHC (RBC) [Mass/Vol] 32 % 30.5 - 36.0 % [facility] MCV (RBC) [Entitic vol] 102.8 fL High 77.0 - 99.0 fL [facility] Monocytes (Bld) [#/Vol] 0.6 10*3/uL 0.0 - 0.9 10*3/uL [facility] Monocytes/100 WBC (Bld) 6.5 % 5.0 - 13.0 % [facility] Neutrophils (Bld) [#/Vol] 5.4 10*3/uL 1.8 - 7.5 10*3/uL [facility] Neutrophils/100 WBC (Bld) 63.8 % 38.0 - 82.0 % [facility] Nucleated RBC/100 WBC (Bld) [Ratio] 0 % [facility] Platelet mean volume (Bld) [Entitic vol] 9.8 fL 9.0 - 12.7 fL [facility] Platelets (Bld) [#/Vol] 270 10*3/uL 140 - 440 10*3/uL [facility] RBC (Bld) [#/Vol] 4.71 10*6/uL 4.40 - 5.9 0 10*6/uL [facility] WBC (Bld) [#/Vol] 8.4 10*3/uL 3.6 - 10.7 10*3/uL [facility] CBC WITH AUTO DIFFERENTIALon 07-11-2024 Basophils (Bld) [#/Vol] 0.0 10*3/uL Normal 0.0-0.2 [facility] Comment on above: Performed By: #### L [id number] ####Medical Technician Assistant: LESLEE HERNANDEZ ([phone])[facility] ([facility])[address] [place] [address] Basophils/100 WBC (Bld) 0.4 % Normal 0.0-2.0 [facility] Comment on above: Performed By: #### L [id number] ####Medical Technician Assistant: LESLEE HERNANDEZ ([phone])[facility] [place] [address] Eosinophils (Bld) [#/Vol] 0.0 10*3/uL Normal 0.0-0.5 [facility] Comment on above: Performed By: #### L [id number] ####Medical Technician Assistant: LESLEE HERNANDEZ ([phone])[facility] (SBHLAB)[address] Eosinophils/100 WBC (Bld) 0.2 % Normal 0.0-6.0 [facility] Comment on above: Performed By: #### L [id number] ####Medical Technician Assistant: LESLEE HERNANDEZ ([id number])[facility] Erythrocyte distribution width (RBC) [Ratio] 14.0 % Normal 11.5-15.0 [facility] Comment on above: Performed By: #### L [id number] ####Medical Technician Assistant: LESLEE HERNANDEZ ([phone])[facility] ([facility])[address] [place] [address] Hematocrit (Bld) [Volume fraction] 48.4 % Normal 40.0-52.0 [facility] Comment on above: Performed By: #### L [id number] ####Medical Technician Assistant: LESLEE HERNANDEZ ([phone])[facility] Hemoglobin (Bld) [Mass/Vol] 15.5 g/dL Normal 13.0-18.0 [facility] Comment on above: Performed By: #### L [id number] ####Medical Technician Assistant: LESLEE HERNANDEZ ([phone])[facility] IMMATURE GRANS % 0.2 % Normal 0.0-2.0 [facility] Comment on above: Performed By: #### L [id number] ####Medical Technician Assistant: LESLEE HERNANDEZ ([phone])[facility] IMMATURE GRANS ABSOLUTE 0.0 10*3/uL Normal <0.1 [facility] Comment on above: Performed By: #### L [id number] ####Medical Technician Assistant: LESLEE HERNANDEZ ([phone])[facility] ([facility])[address] Lymphocytes (Bld) [#/Vol] 2.4 10*3/uL Normal 1.0-4.3 [facility] Comment on above: Performed By: #### L [id number] ####Medical Technician Assistant: LESLEE MCNEILLRAMON ([phone])[facility] ([facility] Lymphocytes/100 WBC (Bld) 28.9 % Normal 15.0-45.0 [facility] Comment on above: Performed By: #### L [id number] ####Medical Technician Assistant: LESLEE TURKTYRONE ([phone])[facility] MCH (RBC) [Entitic mass] 32.9 pg Normal 26.0-34.0 [facility] Comment on above: Performed By: #### L [id number] ####Medical Technician Assistant: LESLEE TURKTYRONE ([phone])[facility] ([facility])[address] MCHC 32.0 % Normal 30.5-36.0 [facility] Comment on above: Performed By: #### L [id number] ####Medical Technician Assistant: LESLEE HERNANDEZ ([phone])[facility] [place] ([facility])[address] MCV (RBC) [Entitic vol] 102.8 fL High 77.0-99.0 [facility] Comment on above: Performed By: #### L [id number] ####Medical Technician Assistant: LESLEE HERNANDEZ ([phone])[facility] [place] ([facility])[address] Monocytes (Bld) [#/Vol] 0.6 10*3/uL Normal 0.0-0.9 [facility] Comment on above: Performed By: #### L [id number] ####Medical Technician Assistant: LESLEE HERNANDEZ ([phone])[facility] ([facility])[address] Monocytes/100 WBC (Bld) 6.5 % Normal 5.0-13.0 [facility] Comment on above: Performed By: #### L [id number] ####Medical Technician Assistant: LESLEE HERNANDEZ ([phone])[facility] [place] ([facility])[address] NEUTROPHILS ABSOLUTE 5.4 10*3/uL Normal 1.8-7.5 [facility] Comment on above: Performed By: #### L [id number] ####Medical Technician Assistant: LESLEE HERNANDEZ ([phone])[facility] ([facility])[address] Neutrophils/100 WBC (Bld) 63.8 % Normal 38.0-82.0 [facility] Comment on above: Performed By: #### L [id number] ####Medical Technician Assistant: LESLEE HERNANDEZ ([phone])[facility] [place] ([facility])[address] NRBC 0.0 /100 WBCs Normal 0.0-2.0 [facility] Comment on above: Performed By: #### L [id number] ####Medical Technician Assistant: LESLEE HERNANDEZ ([phone])[facility] [place] ([facility])[address] Platelet mean volume (Bld) [Entitic vol] 9.8 fL Normal 9.0-12.7 [facility] Comment on above: Performed By: #### L [id number] ####Medical Technician Assistant: LESLEE HERNANDEZ ([phone])[facility] ([facility])155 [place] [address] [place] Platelets (Bld) [#/Vol] 270 10*3/uL Normal 140-440 [facility] Comment on above: Performed By: #### L [id number] ####Medical Technician Assistant: LESLEE HERNANDEZ ([phone])[facility] ([facility])[address] RBC (Bld) [#/Vol] 4.71 10*6/uL Normal 4.40-5.90 [facility] Comment on above: Performed By: #### L [id number] ####Medical Technician Assistant: LESLEE HERNANDEZ ([phone])[facility] ([facility])[address] WBC (Bld) [#/Vol] 8.4 10*3/uL Normal 3.6-10.7 [facility] Comment on above: Performed By: #### L [id number] ####Medical Technician Assistant: LESLEE HERNANDEZ ([phone])[facility] ([facility])[address] ABDOMEN PELVIS W CONTRAST on 07-11-2024 CT ABDOMEN PELVIS W CONTRAST Normal [facility] CT Abdomen and Pelvis W cont rast [place] 07-11-2024 Trace left pleural effusion. Resolving right lung base infiltrates. Persistent small volume of intra-abdominal and intrapelvic ascites with edema throughout the mesentery. Hepatic steatosis. Colonic diverticulosis. Additional findings, as above. Report Dictated on Electronically Signed By: Kaitlin Goldsmith MD Electronically Signed Date/Time: 07/11/2024 10:46 PM [facility] 1980 [id number] Exam Date/Time: 07/11/2024 21:05 Procedure: CT ABDOMEN [...] umbilical hernia is present at the midline. [facility] Kaitlin Goldsmith MD - 07/11/2024 Patient Name: [facility] MED[facility] 1980 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 States he was here last week and had to get diuretics, he had fluid retention. Endorses similar sx and increased weight. Pt weight Friday was 170lbs, today 174lbs. Denies any SOB Normal [facility] ED Provider Noteon ED Provider Note Normal [facility] HEPATIC FUNCTION PANELon Albumin [Mass/Vol] 3.3 g/dL Low 3.5-5.0 [facility] Comment on above: Performed By: #### L [id number], LAB15, [id number], LAB20 ####Medical Technician Assistant: LESLEE HERNANDEZ ([phone])[facility] ([facility])[address] ALP [Catalytic activity/Vol] 213 U/L High 40-150 [facility] Comment on above: Performed By: #### L [id number], LAB15, [id number], LAB20 ####Medical Technician Assistant: LESLEE HERNANDEZ ([phone])[facility] ([facility])[address] ALT [Catalytic activity/Vol] 134 U/L High <40 [facility] Comment on above: Performed By: #### L [id number], LAB15, [id number], LAB20 ####Medical Technician Assistant: LESLEE MCNEILLRAMON ([phone])[facility] ([facility])[address] AST [Catalytic activity/Vol] 75 U/L High <34 [facility] Comment on above: Performed By: #### L [id number], LAB15, [id number], LAB20 ####Medical Technician Assistant: LESLEE MCNEILLRAMON ([phone])[facility] ([facility])[address] Bilirubin [Mass/Vol] 2.2 mg/dL High <1.2 [facility] Comment on above: Performed By: #### L AB106, LAB15, [id number], LAB20 ####Medical Technician Assistant: LESLEE HERNANDEZ ([phone])[facility] ([facility])[address] Bilirubin.indirect [Mass/Vol] 1.0 mg/dL High <0.5 [facility] Comment on above: Performed By: #### L AB106, LAB15, [id number], LAB20 ####Medical Technician Assistant: LESLEE MCNEILLRAMON ([phone])[facility] ([facility])[address] Protein [Mass/Vol] 6.4 g/dL Normal 6.4-8.3 [facility] Comment on above: Result Comment: Seru m protein values are higher than plasma values. Samples from recumbent persons are lower by up to 0.5 g/dL as compared to ambulatory persons. After 60 years values are lower by up to 0.2 g/dL. Performed By: #### L AB106, LAB15, [id number], LAB20 ####Medical Technician Assistant: LESLEE HERNANDEZ ([phone])[facility] ([facility])[address] HIGH SENSITIVITY TROPONIN, S ERIAL BASELINEon 07-11-2024 TROPONIN HIGH SENSITIVITY BASELINE 218 ng/L Critically high <=35 [facility] Comment on above: Performed By: #### L AB106, LAB15, [id number], LAB20 ####Medical Technician Assistant: LESLEE HERNANDEZ ([phone])[facility] HIGH SENSITIVITY TROPONIN, S ERIAL, SECOND TESTon 07-11-2024 TROPONIN HS DELTA, BASELINE TO SECOND 3 ng/L Normal <=2 [facility] Comment on above: Result Comment: A tr [...] further clinical guidance. Performed By: #### L [id number] ####Medical Technician Assistant: LESLEE HERNANDEZ ([phone])[facility] TROPONIN HS, SERIAL REFLEX, TEST TWO 221 ng/L Critically high <=35 [facility] Comment on above: Performed By: #### L [id number] ####Medical Technician Assistant: LESLEE HERNANDEZ ([phone])[facility] ([facility])[address] [place] [address] Hepatic function 2000 panelo n 07-11-2024 Albumin [Mass/Vol] 3.3 g/dL Low 3.5 - 5.0 g/dL [facility] ALP [Catalytic activity/Vol] 213 U/L High 40 - 150 U/L [facility] ALT [Catalytic activity/Vol] 134 U/L High NINF - 40 U/L [facility] AST [Catalytic activity/Vol] 75 U/L High NINF - 34 U/L [facility] Bilirubin [Mass/Vol] 2.2 mg/dL High NINF - 1.2 mg/dL [facility] Bilirubin.conjugated [Mass/Vol] 1 mg/dL High NINF - 0.5 mg/dL [facility] Protein [Mass/Vol] 6.4 g/dL 6.4 - 8.3 g/dL [facility] Comment on above: Serum protein values are higher than plasma values. Samples from recumbent persons are lower by up to 0.5 g/dL as compared to ambulatory persons. After 60 years values are lower by up to 0.2 g/dL. NT PRO BNPon 07-11-2024 Natriuretic peptide B (Bld) [Mass/Vol] 07596 pg/mL High <125 [facility] Comment on above: Performed By: #### L AB106, LAB15, [id number], LAB20 ####Medical Technician Assistant: LESLEE HERNANDEZ ([phone])[facility] ([facility])[address] [place] [address] Natriuretic peptide B [Mass/ Vol]on 07-11-2024 Interpretation and review of laboratory results Abnormal [facility] Natriuretic peptide B (Bld) [Mass/Vol] 23307 pg/mL High NINF - 125 pg/mL [facility] No Panel InformationOrdered By: La Ambrosio on 07-11-2024 Interpretation and review of laboratory results Abnormal [facility] Troponin HS Delta, Baseline to Second 3 ng/L NINF - 2 ng/L [facility] Comment on above: A troponin delta [...] ng/L Critically high NINF - 35 ng/L [facility] No Panel InformationOrdered By: Fabiola Singh on 07-11-2024 Interpretation and review of laboratory results Abnormal [facility] Troponin HS, Serial Baseline 218 ng/L Critically high NINF - 35 ng/L [facility] No Panel Informationon 07-11 Interpretation and review of laboratory results Abnormal [facility] XR Chest Single viewon 07-11 Cardiomegaly. No confluent consolidation. Report Dictated on Electronically Signed By: Kaitlin Goldsmith MD Electronically Signed Date/Time: 07/11/2024 6:52 PM EST [facility] Patient Name: CARLO MEDINA : 1980 Exam Date/Time: 07/11/2024 18:52 Procedure: XR CHEST 1 VIEW Ordering Provider: KENNY J Reason For Exam: CHF, SOB INDICATION: Shortness of breath. VIEWS: Chest portable AP upright-on image COMPARISON: 07/03/2024 FINDINGS: The trachea is midline. The cardiac silhouette is enlarged. The costophrenic angles are sharp. There is no confluent consolidation. [facility] Kaitlin Goldsmith MD - 07/11/2024 Patient Name: [...] Electronically Signed Date/Time: 07/11/2024 6:52 PM EST [facility] Radiology Study observation (narrative) [facility] XR Chest Single viewOrdered By: Kaitlin Goldsmith on 07-11-2024 [employer] Work Phone: aPTT Coag (Bld) [Time]on aPTT Coag (PPP) [Time] 24.2 s 20.0 - 30.5 s [employer] Interpretation and review of laboratory results Normal [facility] NOTE: The therapeuti c time for Heparin anticoagulation, based on Xa activity inhibition, is an APTT of 46-80 seconds. [employer] ECG 12 leadon 07-07-2024 Sinus Tachycardia -Left atrial enlargement. Voltage criteria for LVH (S(V1)+R(V6) exceeds 3.50 mV). -Nonspecific ST depression + Nonspecific T-abnormality -Seen with left ventricular hypertrophy (strain). ABNORMAL [facility] Progress Noteon 07-07-2024 Progress Note Normal [facility] [id number] 07-05-2024 [id number] Normal [facility] Nursing Noteon 07-05-2024 Nursing Note Normal [facility] Progress Noteon 07-05-2024 Progress Note Nutrition rescreen completed. Chart reviewed. Patient to be monitored and followed by the diet biomedical instrument technician. Normal [facility] Progress Note Normal [facility] Progress Note Normal [facility] BASIC METABOLIC PANELon Anion gap [Moles/Vol] 6 mmol/L Normal 3-13 [facility] Comment on above: Performed By: #### L AB15, [id number] ####Medical Technician Assistant: NICOLE BOWERS ([phone])[facility])[address] [place] [address] Calcium [Mass/Vol] 8.2 mg/dL Low 8.4-10.2 [facility] Comment on above: Performed By: #### L AB15, [id number] ####Medical Technician Assistant: NICOLE BOWERS ([phone])[facility] ([facility])[address] [place] [address] [place] Chloride [Moles/Vol] 103 mmol/L Normal 98-107 [facility] Comment on above: Performed By: #### L AB15, [id number] ####Medical Technician Assistant: NICOLE BOWERS ([phone])[facility] ([facility])[address] [place] [address] [place] CO2 [Moles/Vol] 25 mmol/L Normal 22-29 [facility] Comment on above: Performed By: #### L AB15, [id number] ####Medical Technician Assistant: NICOLE BOWERS ([phone])[facility] ([facility])[address] [place] [address] Creatinine [Mass/Vol] 2.18 mg/dL High 0.72-1.25 [facility] Comment on above: Performed By: #### L AB15, [id number] ####Medical Technician Assistant: NICOLE BOWERS ([phone])[facility])[address] [place] [address] GLOMERULAR FILTRATION RATE ML/MIN/1.73 SQ M.PREDICTED 36.9 mL/min/1.73m*2 Low >60.0 [facility] Comment on above: Result Comment: Calc ulation based on the Chronic Kidney Disease Epidemiology Collaboration (CKD-EPI) equation refit without adjustment for race Performed By: #### L AB15, [id number] ####Medical Technician Assistant: NICOLE BOWERS ([phone])[address] Glucose [Mass/Vol] 109 mg/dL High 74-100 [facility] Comment on above: Performed By: #### L AB15, [id number] ####Medical Technician Assistant: NICOLE BOWERS ([phone])[address] Potassium [Moles/Vol] 3.5 mmol/L Normal 3.5-5.1 [facility] Comment on above: Result Comment: [facility] potassium values may be up to 0.5 mmol/L lower than serum values. Performed By: #### L AB15, [id number] ####Medical Technician Assistant: NICOLE BOWERS ([phone])[place] [address] [place] Sodium [Moles/Vol] 134 mmol/L Low 136-145 [facility] Comment on above: Performed By: #### L AB15, [id number] ####Medical Technician Assistant: NICOLE BOWERS ([phone])[place] [address] [place] Urea nitrogen [Mass/Vol] 36 mg/dL High 8-21 [facility] Comment on above: Performed By: #### L AB15, [id number] ####Medical Technician Assistant: NICOLE BOWERS ([phone])[address] [place] [address] [facility] Basic metabolic 1998 panelon 07-04-2024 Anion gap [Moles/Vol] 6 mmol/L 3 - 13 mmol/L [facility] Calcium [Mass/Vol] 8.2 mg/dL Low 8.4 - 10. 2 mg/dL [facility] Chloride [Moles/Vol] 103 mmol/L 98 - 10 7 mmol/L [facility] CO2 [Moles/Vol] 25 mmol/L 22 - 29 mmol/L [facility] Creatinine [Mass/Vol] 2.18 mg/dL High 0.72 - 1.25 mg/dL [facility] GFR/1.73 sq M.predicted (S/P/Bld) [Vol rate/Area] 36.9 mL/min Low - PINF [facility] Comment on above: Calculation based on the Chronic Kidney Disease Epidemiology Collaboration (CKD-EPI) equation refit without adjustment for race Glucose [Mass/Vol] 109 mg/dL High 74 - 100 mg/dL [facility] Interpretation and review of laboratory results Abnormal [facility] Potassium [Moles/Vol] 3.5 mmol/L 3.5 - 5.1 mmol/L [facility] Comment on above: Plasma potassium heidi ues may be up to 0.5 mmol/L lower than serum values. Sodium [Moles/Vol] 134 mmol/L Low 136 - 145 mmol/L [facility] Urea nitrogen [Mass/Vol] 36 mg/dL High 8 - 21 mg/dL [facility] CBC W Auto Differential pane l (Bld)Ordered By: Ragini Weinberg on 07-04-2024 Basophils (Bld) [#/Vol] 0 10*3/uL 0.0 - 0.2 10*3/uL [facility] Basophils/100 WBC (Bld) 0.3 % 0.0 - 2.0 % [facility] Eosinophils (Bld) [#/Vol] 0 10*3/uL 0.0 - 0.5 10*3/uL [facility] Eosinophils/100 WBC (Bld) 0.5 % 0.0 - 6.0 % [facility] Erythrocyte distribution width (RBC) [Ratio] 14.3 % 11.5 - 15.0 % [facility] Hematocrit (Bld) [Volume fraction] 45.1 % 40.0 - 52.0 % [facility] Hemoglobin (Bld) [Mass/Vol] 14.3 g/dL 13.0 - 18.0 g/dL [facility] Immature granulocytes (Bld) [#/Vol] 0 10*3/uL NINF - 0.1 10*3/uL [facility] Immature granulocytes/100 WBC (Bld) 0.5 % 0.0 - 2.0 % [facility] Interpretation and review of laboratory results Abnormal [facility] Lymphocytes (Bld) [#/Vol] 2.7 10*3/uL 1.0 - 4.3 10*3/uL [facility] Lymphocytes/100 WBC (Bld) 31 % 15.0 - 45.0 % [facility] MCH (RBC) [Entitic mass] 32.9 pg 26.0 - 34.0 pg [facility] MCHC (RBC) [Mass/Vol] 31.7 % 30.5 - 36.0 % [facility] MCV (RBC) [Entitic vol] 103.9 fL High 77.0 - 99.0 fL [facility] Monocytes (Bld) [#/Vol] 0.8 10*3/uL 0.0 - 0.9 10*3/uL [facility] Monocytes/100 WBC (Bld) 8.8 % 5.0 - 13.0 % [facility] Neutrophils (Bld) [#/Vol] 5.1 10*3/uL 1.8 - 7.5 10*3/uL [facility] Neutrophils/100 WBC (Bld) 58.9 % 38.0 - 82.0 % [facility] Nucleated RBC/100 WBC (Bld) [Ratio] 0.2 % [facility] Platelet mean volume (Bld) [Entitic vol] 10.7 fL 9.0 - 12.7 fL [facility] Platelets (Bld) [#/Vol] 239 10*3/uL 140 - 440 10*3/uL [facility] RBC (Bld) [#/Vol] 4.34 10*6/uL Low 4.40 - 5.9 0 10*6/uL [facility] WBC (Bld) [#/Vol] 8.6 10*3/uL 3.6 - 10.7 10*3/uL [facility] CBC WITH AUTO DIFFERENTIALon 07-04-2024 Basophils (Bld) [#/Vol] 0.0 10*3/uL Normal 0.0-0.2 [facility] Comment on above: Performed By: #### L [id number] ####Medical Technician Assistant: INCOLE BOWERS ([phone])[facility])[address] [place] [address] Basophils/100 WBC (Bld) 0.3 % Normal 0.0-2.0 [facility] Comment on above: Performed By: #### L [id number] ####Medical Technician Assistant: NICOLE BOWERS ([phone])[facility])[address] [place] [address] Eosinophils (Bld) [#/Vol] 0.0 10*3/uL Normal 0.0-0.5 [facility] Comment on above: Performed By: #### L [id number] ####Medical Technician Assistant: NICOLE BOWERS ([phone])[facility])[address] [place] [address] Eosinophils/100 WBC (Bld) 0.5 % Normal 0.0-6.0 [facility] Comment on above: Performed By: #### L [id number] ####Medical Technician Assistant: NICOLE BOWERS ([phone])[facility])[address] [place] [address] Erythrocyte distribution width (RBC) [Ratio] 14.3 % Normal 11.5-15.0 [facility] Comment on above: Performed By: #### L [id number] ####Medical Technician Assistant: NICOLE BOWERS ([phone])[facility])[address] [place] [address] Hematocrit (Bld) [Volume fraction] 45.1 % Normal 40.0-52.0 [facility] Comment on above: Performed By: #### L [id number] ####Medical Technician Assistant: NICOLE BOWERS ([phone])[facility])[address] [place] [address] Hemoglobin (Bld) [Mass/Vol] 14.3 g/dL Normal 13.0-18.0 [facility] Comment on above: Performed By: #### L [id number] ####Medical Technician Assistant: NICOLE BOWERS ([phone])[facility])[address] [place] [address] IMMATURE GRANS % 0.5 % Normal 0.0-2.0 [facility] Comment on above: Performed By: #### L [id number] ####Medical Technician Assistant: NICOLE BOWERS ([phone])[facility])[address] [place] [address] IMMATURE GRANS ABSOLUTE 0.0 10*3/uL Normal <0.1 [facility] Comment on above: Performed By: #### L [id number] ####Medical Technician Assistant: NICOLE BOWERS ([phone])[address] Lymphocytes (Bld) [#/Vol] 2.7 10*3/uL Normal 1.0-4.3 [facility] Comment on above: Performed By: #### L [id number] ####Medical Technician Assistant: NICOLE BOWERS ([phone])[facility])[address] [place] [address] Lymphocytes/100 WBC (Bld) 31.0 % Normal 15.0-45.0 [facility] Comment on above: Performed By: #### L [id number] ####Medical Technician Assistant: NICOLE BOWERS ([phone])[facility])[address] [place] [address] MCH (RBC) [Entitic mass] 32.9 pg Normal 26.0-34.0 [facility] Comment on above: Performed By: #### L [id number] ####Medical Technician Assistant: NICOLE BOWERS ([phone])[facility])[address] [place] [address] MCHC 31.7 % Normal 30.5-36.0 [facility] Comment on above: Performed By: #### L [id number] ####Medical Technician Assistant: NICOLE BOWERS ([phone])[facility] [place] [address] MCV (RBC) [Entitic vol] 103.9 fL High 77.0-99.0 [facility] Comment on above: Performed By: #### L [id number] ####Medical Technician Assistant: NICOLE BOWERS ([phone])[facility])[address] [place] [address] Monocytes (Bld) [#/Vol] 0.8 10*3/uL Normal 0.0-0.9 [facility] Comment on above: Performed By: #### L [id number] ####Medical Technician Assistant: NICOLE BOWERS ([phone])[facility])[address] [place] [address] Monocytes/100 WBC (Bld) 8.8 % Normal 5.0-13.0 [facility] Comment on above: Performed By: #### L [id number] ####Medical Technician Assistant: NICOLE BOWERS ([phone])[facility] ([facility])[address] [place] [address] NEUTROPHILS ABSOLUTE 5.1 10*3/uL Normal 1.8-7.5 [facility] Comment on above: Performed By: #### L [id number] ####Medical Technician Assistant: NICOLE BOWERS ([phone])[facility])[address] [place] [address] Neutrophils/100 WBC (Bld) 58.9 % Normal 38.0-82.0 [facility] Comment on above: Performed By: #### L [id number] ####Medical Technician Assistant: NICOLE BOWERS ([phone])[facility] ([facility])[address] [place] [address] NRBC 0.2 /100 WBCs Normal 0.0-2.0 [facility] Comment on above: Performed By: #### L [id number] ####Medical Technician Assistant: NICOLE BOWERS ([phone])[facility] ([facility])[address] [place] [address] Platelet mean volume (Bld) [Entitic vol] 10.7 fL Normal 9.0-12.7 [facility] Comment on above: Performed By: #### L [id number] ####Medical Technician Assistant: NICOLE BOWERS ([phone])[facility] ([facility])[address] [place] [address] Platelets (Bld) [#/Vol] 239 10*3/uL Normal 140-440 [facility] Comment on above: Performed By: #### L [id number] ####Medical Technician Assistant: NICOLE BOWERS ([phone])[facility] ([facility])[address] [place] [address] RBC (Bld) [#/Vol] 4.34 10*6/uL Low 4.40-5.90 [facility] Comment on above: Performed By: #### L [id number] ####Medical Technician Assistant: NICOLE BOWERS ([phone])[facility] ([facility])[address] [place] [address] WBC (Bld) [#/Vol] 8.6 10*3/uL Normal 3.6-10.7 [facility] Comment on above: Performed By: #### L [id number] ####Medical Technician Assistant: NICOLE BOWERS ([phone])[facility] ([facility])[address] [place] [address] COMPREHENSIVE METABOLIC PANE Ming 07-04-2024 Albumin [Mass/Vol] 2.7 g/dL Low 3.5-5.0 [facility] Comment on above: Performed By: #### L [id number] ####Medical Technician Assistant: NICOLE BOWERS ([phone])[facility] ([facility])[address] [place] [address] ALP [Catalytic activity/Vol] 229 U/L High 40-150 [facility] Comment on above: Performed By: #### L [id number] ####Medical Technician Assistant: NICOLE BOWERS ([phone])[facility] ([facility])[address] [place] [address] ALT [Catalytic activity/Vol] 126 U/L High <40 [facility] Comment on above: Performed By: #### L [id number] ####Medical Technician Assistant: NICOLE BOWERS ([phone])[facility] [place] [address] Anion gap [Moles/Vol] 9 mmol/L Normal 3-13 [facility] Comment on above: Performed By: #### L [id number] ####Medical Technician Assistant: NICOLE BOWERS ([phone])[facility] [place] [address] AST [Catalytic activity/Vol] 47 U/L High <34 [facility] Comment on above: Performed By: #### L [id number] ####Medical Technician Assistant: NICOLE BOWERS ([phone])[facility] ([facility])[address] [place] [address] Bilirubin [Mass/Vol] 1.3 mg/dL High <1.2 [facility] Comment on above: Performed By: #### L [id number] ####Medical Technician Assistant: NICOLE BOWERS ([phone])[facility] [place] [address] Calcium [Mass/Vol] 8.0 mg/dL Low 8.4-10.2 [facility] Comment on above: Performed By: #### L [id number] ####Medical Technician Assistant: NICOLE BOWERS ([phone])[facility] [place] [address] [place] Chloride [Moles/Vol] 106 mmol/L Normal 98-107 [facility] Comment on above: Performed By: #### L [id number] ####Medical Technician Assistant: NICOLE BOWERS ([phone])[facility] [place] [address] [place] CO2 [Moles/Vol] 20 mmol/L Low 22-29 [facility] Comment on above: Performed By: #### L [id number] ####Medical Technician Assistant: NICOLE BOWERS ([phone])[facility] [place] [address] [place] Creatinine [Mass/Vol] 2.12 mg/dL High 0.72-1.25 [facility] Comment on above: Performed By: #### L [id number] ####Medical Technician Assistant: NICOLE BOWERS ([phone])[facility])[address] [place] [address] GLOMERULAR FILTRATION RATE ML/MIN/1.73 SQ M.PREDICTED 38.2 mL/min/1.73m*2 Low >60.0 [facility] Comment on above: Result Comment: Calc ulation based on the Chronic Kidney Disease Epidemiology Collaboration (CKD-EPI) equation refit without adjustment for race Performed By: #### L [id number] ####Medical Technician Assistant: NICOLE BOWERS ([phone])[address] Glucose [Mass/Vol] 95 mg/dL Normal 74-100 [facility] Comment on above: Performed By: #### L [id number] ####Medical Technician Assistant: NICOLE BOWERS ([phone])[address] Potassium [Moles/Vol] 4.3 mmol/L Normal 3.5-5.1 [facility] Comment on above: Result Comment: [facility] potassium values may be up to 0.5 mmol/L lower than serum values. Performed By: #### L [id number] ####Medical Technician Assistant: NICOLE BOWERS ([phone])[address] Protein [Mass/Vol] 5.3 g/dL Low 6.4-8.3 [facility] Comment on above: Performed By: #### L [id number] ####Medical Technician Assistant: NICOLE BOWERS ([phone])[address] Sodium [Moles/Vol] 135 mmol/L Low 136-145 [facility] Comment on above: Performed By: #### L [id number] ####Medical Technician Assistant: NICOLE BOWERS ([phone])[address] Urea nitrogen [Mass/Vol] 36 mg/dL High 8-21 [facility] Comment on above: Performed By: #### L [id number] ####Medical Technician Assistant: NICOLE BOWERS ([phone])[facility] ([facility])[address] [place] [address] Comprehensive metabolic 1998 panelon 07-04-2024 Albumin [Mass/Vol] 2.7 g/dL Low 3.5 - 5.0 g/dL [facility] ALP [Catalytic activity/Vol] 229 U/L High 40 - 150 U/L [facility] ALT [Catalytic activity/Vol] 126 U/L High NINF - 40 U/L [facility] Anion gap [Moles/Vol] 9 mmol/L 3 - 13 mmol/L [facility] AST [Catalytic activity/Vol] 47 U/L High NINF - 34 U/L [facility] Bilirubin [Mass/Vol] 1.3 mg/dL High NINF - 1.2 mg/dL [facility] Calcium [Mass/Vol] 8 mg/dL Low 8.4 - 10. 2 mg/dL [facility] Chloride [Moles/Vol] 106 mmol/L 98 - 10 7 mmol/L [facility] CO2 [Moles/Vol] 20 mmol/L Low 22 - 29 mmol/L [facility] Creatinine [Mass/Vol] 2.12 mg/dL High 0.72 - 1.25 mg/dL [facility] GFR/1.73 sq M.predicted (S/P/Bld) [Vol rate/Area] 38.2 mL/min Low - PINF [facility] Comment on above: Calculation based on the Chronic Kidney Disease Epidemiology Collaboration (CKD-EPI) equation refit without adjustment for race Glucose [Mass/Vol] 95 mg/dL 74 - 100 mg/dL [facility] Interpretation and review of laboratory results Abnormal [facility] Potassium [Moles/Vol] 4.3 mmol/L 3.5 - 5.1 mmol/L [facility] Comment on above: Plasma potassium heidi ues may be up to 0.5 mmol/L lower than serum values. Protein [Mass/Vol] 5.3 g/dL Low 6.4 - 8.3 g/dL [facility] Sodium [Moles/Vol] 135 mmol/L Low 136 - 145 mmol/L [facility] Urea nitrogen [Mass/Vol] 36 mg/dL High 8 - 21 mg/dL [facility] LACTIC ACID WITH REFLEXon Lactate [Moles/Vol] 1.4 mmol/L Normal 0.5-2.2 [facility] Comment on above: Performed By: #### L [id number] ####Medical Technician Assistant: NICOLE BOWERS ([phone])[facility])[address] [place] [address] Lactate [Moles/Vol] 2.1 mmol/L Normal 0.5-2.2 [facility] Comment on above: Performed By: #### L [id number] ####Medical Technician Assistant: NICOLE BOWERS ([phone])[facility])[address] [place] [address] Laboratory - Chemistry and C hemistry - challengeon 07-04-2024 Magnesium [Mass/Vol] 2 mg/dL 1.6 - 2 .6 mg/dL [facility] Lactate [Moles/Vol] 2.1 mmol/L 0.5 - 2. 2 mmol/L [facility] Urea nitrogen (U) [Mass/Vol] 620 mg/dL [facility] MAGNESIUMon 07-04-2024 Magnesium [Mass/Vol] 2.0 mg/dL Normal 1.6-2.6 [facility] Comment on above: Result Comment: ALEJANDRO R COMMENTS:Higher values can be expected in females during menses. Performed By: #### L [id number], [id number] ####Medical Technician Assistant: NICOLE BOWERS ([phone])[facility] ([facility])[address] [place] [address] Magnesium [Mass/Vol]on 07-04 Interpretation and review of laboratory results Normal [facility] Higher values can be expected in females during menses. [facility] No Panel Informationon 07-04 Interpretation and review of laboratory results Normal [facility] Interpretation and review of laboratory results Normal [facility] CREATININE, URINE 115.3 mg/dL 63.0 - 166 .0 mg/dL [facility] UREA (BUN), URINE, FRACTIONAL EXCRETION 30.[address] [facility] Comment on above: Fractional excretion of urea under 35% is consistent with a prerenal cause. UREA (BUN), URINE, TUBULAR REABSORPTION 0.7 [facility] Progress Noteon 07-04-2024 Progress Note Normal [facility] Progress Note Normal [facility] BLOOD GAS, VENOUSon 07-03-19 25 Base excess Calc (BldV) [Moles/Vol] -6.8000 mmol/L Low -3.0-3.0 [facility] Comment on above: Performed By: #### L [id number] ####Medical Technician Assistant: LESLEE HERNANDEZ ([phone])[facility] ([facility])[address] CO2 [Moles/Vol] 19.5 mmol/L Low 23.0-30.0 [facility] Comment on above: Performed By: #### L AB79 ####Medical Technician Assistant: LESLEE HERNANDEZ ([phone])[facility] ([facility])[address] HCO3 (Bld) [Moles/Vol] 18.4 mmol/L Low 21.0-30.0 [facility] Comment on above: Performed By: #### L AB79 ####Medical Technician Assistant: LESLEE HERNANDEZ ([phone])[facility] ([facility])[address] Hemoglobin (Bld) [Mass/Vol] 15.2 g/dL Normal Screen only [facility] Comment on above: Performed By: #### L AB79 ####Medical Technician Assistant: LESLEE HERNANDEZ ([phone])[facility] ([facility])[address] [place] [address] [place] OXYGEN (MM HG) IN VENOUS BLOOD 39.3 mm Hg Normal [facility] Comment on above: Performed By: #### L AB79 ####Medical Technician Assistant: LESLEE HERNANDEZ ([phone])[facility] ([facility])[address] [place] [address] [place] OXYGEN SATURATION (%) IN VENOUS BLOOD 60.4 % Normal [facility] Comment on above: Performed By: #### L AB79 ####Medical Technician Assistant: LESLEE HERNANDEZ ([phone])[facility] ([facility])[address] [place] [address] PCO2, JAZ 36.1 mm Hg Low 38.0-56.0 [facility] Comment on above: Performed By: #### L AB79 ####Medical Technician Assistant: LESLEE MCNEILLRAMON ([phone])[facility] ([facility])[address] PH VENOUS 7.325 Normal 7.320-7.420 [facility] Comment on above: Performed By: #### L AB79 ####Medical Technician Assistant: LESLEEFIDELIA TURKTYRONE ([phone])[facility] ([facility])[address] [place] [address] SOURCE OF OXYGEN Room Air Normal [facility] Comment on above: Result Comment: ALEJANDRO Aleman COMMENTS:Assessment of oxygenation is best done with an arterial blood gas determination. Reference ranges for pO2, bicarbonate, and base excess are for mixed venous blood. Specimens drawn from a peripheral vein will often have higher values. Performed By: #### L AB79 ####Medical Technician Assistant: LESLEE TURKTYRONE ([phone])[facility] ([facility])[address] [place] [address] CBC W Auto Differential pane l (Bld)on 07-03-2024 Basophils (Bld) [#/Vol] 0 10*3/uL 0.0 - 0.2 10*3/uL [employer] Basophils/100 WBC (Bld) 0.3 % 0.0 - 2.0 % [facility] Eosinophils (Bld) [#/Vol] 0 10*3/uL 0.0 - 0.5 10*3/uL [facility] Eosinophils/100 WBC (Bld) 0 % 0.0 - 6.0 % [facility] Erythrocyte distribution width (RBC) [Ratio] 14.6 % 11.5 - 15.0 % [facility] Hematocrit (Bld) [Volume fraction] 48.6 % 40.0 - 52.0 % [facility] Hemoglobin (Bld) [Mass/Vol] 15.7 g/dL 13.0 - 18.0 g/dL [facility] Immature granulocytes (Bld) [#/Vol] 0 10*3/uL NINF - 0.1 10*3/uL [facility] Immature granulocytes/100 WBC (Bld) 0.4 % 0.0 - 2.0 % [facility] Interpretation and review of laboratory results Abnormal [facility] Lymphocytes (Bld) [#/Vol] 1.5 10*3/uL 1.0 - 4.3 10*3/uL [facility] Lymphocytes/100 WBC (Bld) 21.1 % 15.0 - 45.0 % [facility] MCH (RBC) [Entitic mass] 33 pg 26.0 - 34.0 pg [facility] MCHC (RBC) [Mass/Vol] 32.3 % 30.5 - 36.0 % [facility] MCV (RBC) [Entitic vol] 102.1 fL High 77.0 - 99.0 fL [facility] Monocytes (Bld) [#/Vol] 0.4 10*3/uL 0.0 - 0.9 10*3/uL [facility] Monocytes/100 WBC (Bld) 5.4 % 5.0 - 13.0 % [facility] Neutrophils (Bld) [#/Vol] 5.3 10*3/uL 1.8 - 7.5 10*3/uL [facility] Neutrophils/100 WBC (Bld) 72.8 % 38.0 - 82.0 % [facility] Nucleated RBC/100 WBC (Bld) [Ratio] 0.3 % [facility] Platelet mean volume (Bld) [Entitic vol] 10.2 fL 9.0 - 12.7 fL [facility] Platelets (Bld) [#/Vol] 261 10*3/uL 140 - 440 10*3/uL [facility] RBC (Bld) [#/Vol] 4.76 10*6/uL 4.40 - 5.9 0 10*6/uL [facility] WBC (Bld) [#/Vol] 7.3 10*3/uL 3.6 - 10.7 10*3/uL [facility] CBC WITH AUTO DIFFERENTIALon 07-03-2024 Basophils (Bld) [#/Vol] 0.0 10*3/uL Normal 0.0-0.2 [facility] Comment on above: Performed By: #### L [id number] ####Medical Technician Assistant: LESLEE TURKTYRONE ([phone])[facility] ([facility])[address] Basophils/100 WBC (Bld) 0.3 % Normal 0.0-2.0 [facility] Comment on above: Performed By: #### L [id number] ####Medical Technician Assistant: LESLEE HERNANDEZ ([phone])[facility] ([facility])[address] Eosinophils (Bld) [#/Vol] 0.0 10*3/uL Normal 0.0-0.5 [facility] Comment on above: Performed By: #### L [id number] ####Medical Technician Assistant: LESLEE TURKTYRONE ([phone])[facility] ([facility])[address] Eosinophils/100 WBC (Bld) 0.0 % Normal 0.0-6.0 [facility] Comment on above: Performed By: #### L [id number] ####Medical Technician Assistant: LESLEE TURKTYRONE ([phone])[facility] ([facility])[address] Erythrocyte distribution width (RBC) [Ratio] 14.6 % Normal 11.5-15.0 [facility] Comment on above: Performed By: #### L [id number] ####Medical Technician Assistant: LESLEE HERNANDEZ ([phone])[facility] [place] ([facility])[address] Hematocrit (Bld) [Volume fraction] 48.6 % Normal 40.0-52.0 [facility] Comment on above: Performed By: #### L [id number] ####Medical Technician Assistant: LESLEE HERNANDEZ ([phone])[facility] [place] ([facility])[address] Hemoglobin (Bld) [Mass/Vol] 15.7 g/dL Normal 13.0-18.0 [facility] Comment on above: Performed By: #### L [id number] ####Medical Technician Assistant: LESLEE HERNANDEZ ([phone])[facility] [place] ([facility])[address] IMMATURE GRANS % 0.4 % Normal 0.0-2.0 [facility] Comment on above: Performed By: #### L [id number] ####Medical Technician Assistant: LESLEE HERNANDEZ ([phone])[facility] [place] ([facility])[address] IMMATURE GRANS ABSOLUTE 0.0 10*3/uL Normal <0.1 [facility] Comment on above: Performed By: #### L [id number] ####Medical Technician Assistant: LESLEE HERNANDEZ ([phone])[facility] [place] ([facility])[address] Lymphocytes (Bld) [#/Vol] 1.5 10*3/uL Normal 1.0-4.3 [facility] Comment on above: Performed By: #### L [id number] ####Medical Technician Assistant: LESLEE HERNANDEZ ([phone])[facility] [place] ([facility])[address] [place] [address] Lymphocytes/100 WBC (Bld) 21.1 % Normal 15.0-45.0 [facility] Comment on above: Performed By: #### L [id number] ####Medical Technician Assistant: LESLEE HERNANDEZ ([phone])[facility] ([facility])[address] MCH (RBC) [Entitic mass] 33.0 pg Normal 26.0-34.0 [facility] Comment on above: Performed By: #### L [id number] ####Medical Technician Assistant: LESLEE HERNANDEZ ([phone])[facility] ([facility])[address] MCHC 32.3 % Normal 30.5-36.0 [facility] Comment on above: Performed By: #### L [id number] ####Medical Technician Assistant: LESLEE HERNANDEZ ([phone])[facility] [place] ([facility])[address] MCV (RBC) [Entitic vol] 102.1 fL High 77.0-99.0 [facility] Comment on above: Performed By: #### L [id number] ####Medical Technician Assistant: LESLEE TURKTYRONE ([phone])[facility] [place] ([facility])[address] Monocytes (Bld) [#/Vol] 0.4 10*3/uL Normal 0.0-0.9 [facility] Comment on above: Performed By: #### L [id number] ####Medical Technician Assistant: LESLEE HERNANDEZ ([phone])[facility] ([facility])[address] Monocytes/100 WBC (Bld) 5.4 % Normal 5.0-13.0 [facility] Comment on above: Performed By: #### L [id number] ####Medical Technician Assistant: LESLEE HERNANDEZ ([phone])[facility] [place] ([facility])[address] [place] [address] NEUTROPHILS ABSOLUTE 5.3 10*3/uL Normal 1.8-7.5 [facility] Comment on above: Performed By: #### L [id number] ####Medical Technician Assistant: LESLEE HERNANDEZ ([phone])[facility] [place] ([facility])[address] Neutrophils/100 WBC (Bld) 72.8 % Normal 38.0-82.0 [facility] Comment on above: Performed By: #### L [id number] ####Medical Technician Assistant: LESLEE HERNANDEZ ([phone])[facility] [place] ([facility])[address] NRBC 0.3 /100 WBCs Normal 0.0-2.0 [facility] Comment on above: Performed By: #### L [id number] ####Medical Technician Assistant: LESLEE HERNANDEZ ([phone])[facility] [place] ([facility])[address] Platelet mean volume (Bld) [Entitic vol] 10.2 fL Normal 9.0-12.7 [facility] Comment on above: Performed By: #### L [id number] ####Medical Technician Assistant: LESLEE HERNANDEZ ([phone])[facility] [place] ([facility])[address] Platelets (Bld) [#/Vol] 261 10*3/uL Normal 140-440 [facility] Comment on above: Performed By: #### L [id number] ####Medical Technician Assistant: LESLEE HERNANDEZ ([phone])[facility] [place] ([facility])[address] RBC (Bld) [#/Vol] 4.76 10*6/uL Normal 4.40-5.90 [facility] Comment on above: Performed By: #### L [id number] ####Medical Technician Assistant: LESLEE HERNANDEZ ([phone])[facility] [place] ([facility])[address] WBC (Bld) [#/Vol] 7.3 10*3/uL Normal 3.6-10.7 [facility] Comment on above: Performed By: #### L [id number] ####Medical Technician Assistant: LESLEE HERNANDEZ ([phone])[facility] [place] ([facility])[address] COMPLETE URINALYSISon 2024 AMORPHOUS CRYSTALS (#/HPF) IN URINE Few Abnormal Negative [facility] Comment on above: Performed By: #### L [id number] ####Medical Technician Assistant: LESLEE HERNANDEZ ([phone])[facility] [place] ([facility])[address] [place] [address] [place] BACTERIA (#/HPF) IN URINE Negative Normal Negative [facility] Comment on above: Performed By: #### L [id number] ####Medical Technician Assistant: LESLEE HERNANDEZ ([phone])[facility] [place] ([facility])[address] BILIRUBIN, TOTAL PRESENCE IN URINE Negative Normal Negative [facility] Comment on above: Performed By: #### L [id number] ####Medical Technician Assistant: LESLEE HERNANDEZ ([phone])[facility] [place] ([facility])[address] Clarity (U) Turbid Abnormal Clear [facility] Comment on above: Performed By: #### L [id number] ####Medical Technician Assistant: LESLEE HERNANDEZ ([phone])[facility] ([facility])[address] Color (U) Yellow Normal Lt. Yellow [facility] Comment on above: Performed By: #### L [id number] ####Medical Technician Assistant: LESLEE HERNANDEZ ([phone])[facility] [place] ([facility])[address] GLUCOSE (MG/DL) IN URINE Normal Normal Normal (<70) [facility] Comment on above: Performed By: #### L [id number] ####Medical Technician Assistant: LESLEE HERNANDEZ ([phone])[facility] ([facility])[address] [place] [address] [place] HEMOGLOBIN PRESENCE IN URINE Negative Normal Negative [facility] Comment on above: Performed By: #### L [id number] ####Medical Technician Assistant: LESLEE HERNANDEZ ([phone])[facility] [place] ([facility])[address] [place] [address] [place] HYALINE CASTS (#/LPF) IN URINE SEDIMENT BY MICROSCOPY 3-5 Abnormal Negative [facility] Comment on above: Performed By: #### L [id number] ####Medical Technician Assistant: LESLEE HERNANDEZ ([phone])[facility] [place] ([facility])[address] Ketones Ql (U) Negative Normal Negative [facility] Comment on above: Performed By: #### L [id number] ####Medical Technician Assistant: LESLEE HERNANDEZ ([phone])[facility] ([facility])[address] LEUKOCYTE ESTERASE PRESENCE IN URINE BY TEST STRIP Negative Normal Negative [facility] Comment on above: Performed By: #### L [id number] ####Medical Technician Assistant: LESLEE HERNANDEZ ([phone])[facility] (SBHLAB)155 [place] [address] [place] MUCUS (#/LPF) IN URINE SEDIMENT Few Normal Negative [facility] Comment on above: Performed By: #### L [id number] ####Medical Technician Assistant: LESLEE HERNANDEZ ([phone])[facility] (HLAB)[address] NITRITE PRESENCE IN URINE Negative Normal Negative [facility] Comment on above: Performed By: #### L [id number] ####Medical Technician Assistant: LESLEE HERNANDEZ ([phone])[facility] (HLAB)[address] pH (U) 5.5 [pH] Normal 5.0-8.0 [facility] Comment on above: Performed By: #### L [id number] ####Medical Technician Assistant: LESLEE HERNANDEZ ([phone])[facility] (HLAB)[address] Protein (U) [Mass/Vol] 100 mg/dL Abnormal Negative [facility] Comment on above: Performed By: #### L [id number] ####Medical Technician Assistant: LESLEE HERNANDEZ ([phone])[facility] (SBHLAB)[address] [place] [address] [place] RBC (#/HPF) IN URINE SEDIMENT 3-5 Abnormal 0-2 [facility] Comment on above: Performed By: #### L [id number] ####Medical Technician Assistant: LESLEE HERNANDEZ ([phone])[facility] (SBHLAB)[address] Specific gravity (U) [Rel density] 1.030 Normal 1.005-1.030 [facility] Comment on above: Performed By: #### L [id number] ####Medical Technician Assistant: LESLEE TURKTYRONE ([phone])[facility] [place] (SBHLAB)[address] SPERMATOZOA (#/HPF) IN URINE SEDIMENT Few Abnormal Negative [facility] Comment on above: Performed By: #### L [id number] ####Medical Technician Assistant: LESLEE HERNANDEZ ([phone])[facility] [place] (SBHLAB)[address] SQUAMOUS EPITHELIAL CELLS (#/HPF) IN URINE SEDIMENT 0-2 Normal 3-5 [facility] Comment on above: Performed By: #### L [id number] ####Medical Technician Assistant: LESLEE TURKTYRONE ([phone])[facility] [place] (SBHLAB)[address] UROBILINOGEN (MG/DL) IN URINE Normal Normal Normal (0-1) [facility] Comment on above: Performed By: #### L [id number] ####Medical Technician Assistant: LESLEE HERNANDEZ ([phone])[facility] [place] (SBHLAB)[address] WBC (LEUKOCYTE) (#/HPF) IN URINE SEDIMENT 3-5 Normal 0-5 [facility] Comment on above: Performed By: #### L [id number] ####Medical Technician Assistant: LESLEE HERNANDEZ ([phone])[facility] [place] (SBHLAB)[address] COMPREHENSIVE METABOLIC PANE Ming 07-03-2024 Albumin [Mass/Vol] 3.3 g/dL Low 3.5-5.0 [facility] Comment on above: Performed By: #### L [id number], [id number], LAB99, LAB17 ####Medical Technician Assistant: LESLEE HERNANDEZ ([phone])[facility] [place] (SBHLAB)[address] [place] [address] [place] ALP [Catalytic activity/Vol] 267 U/L High 40-150 [facility] Comment on above: Performed By: #### L [id number], [id number], LAB99, LAB17 ####Medical Technician Assistant: LESLEE HERNANDEZ ([phone])[facility] [place] (SBHLAB)[address] [place] [address] [place] ALT [Catalytic activity/Vol] 159 U/L High <40 [facility] Comment on above: Performed By: #### L [id number], [id number], LAB99, LAB17 ####Medical Technician Assistant: LESLEE TURKTYRONE ([id number])[facility] [place] (SBHLAB)[address] Anion gap [Moles/Vol] 12 mmol/L Normal 3-13 [facility] Comment on above: Performed By: #### L [id number], [id number], LAB99, LAB17 ####Medical Technician Assistant: LESLEE HERNANDEZ ([phone])[facility] (SBHLAB)[address] [place] [address] [place] AST [Catalytic activity/Vol] 56 U/L High <34 [facility] Comment on above: Performed By: #### L [id number], [id number], LAB99, LAB17 ####Medical Technician Assistant: LESLEE HERNANDEZ ([phone])[facility] [place] (SBHLAB)[address] [place] [address] [place] Bilirubin [Mass/Vol] 2.4 mg/dL High <1.2 [facility] Comment on above: Performed By: #### L [id number], [id number], LAB99, LAB17 ####Medical Technician Assistant: LESLEE TURKTYRONE ([phone])[facility] [place] (SBHLAB)[address] Calcium [Mass/Vol] 9.0 mg/dL Normal 8.4-10.2 [facility] Comment on above: Performed By: #### L [id number], [id number], LAB99, LAB17 ####Medical Technician Assistant: LESLEE HERNANDEZ ([phone])[facility] (SBHLAB)[address] Chloride [Moles/Vol] 110 mmol/L High 98-107 [facility] Comment on above: Performed By: #### L [id number], [id number], LAB99, LAB17 ####Medical Technician Assistant: LESLEE HERNANDEZ ([id number])[facility] (SBHLAB)[address] CO2 [Moles/Vol] 20 mmol/L Low 22-29 [facility] Comment on above: Performed By: #### L [id number], [id number], LAB99, LAB17 ####Medical Technician Assistant: LESLEE HERNANDEZ ([id number])[facility] (SBHLAB)[address] Creatinine [Mass/Vol] 2.01 mg/dL High 0.72-1.25 [facility] Comment on above: Performed By: #### L [id number], [id number], LAB99, LAB17 ####Medical Technician Assistant: LESLEE HERNANDEZ ([phone])[facility] (SBHLAB)[address] GLOMERULAR FILTRATION RATE ML/MIN/1.73 SQ M.PREDICTED 40.7 mL/min/1.73m*2 Low >60.0 [facility] Comment on above: Result Comment: Calc ulation based on the Chronic Kidney Disease Epidemiology Collaboration (CKD-EPI) equation refit without adjustment for race Performed By: #### L [id number], [id number], LAB99, LAB17 ####Medical Technician Assistant: LESLEE HERNANDEZ ([id number])[facility] (SBHLAB)[address] Glucose [Mass/Vol] 126 mg/dL High 74-100 [facility] Comment on above: Performed By: #### L [id number], [id number], LAB99, LAB17 ####Medical Technician Assistant: LESLEE MCNEILLRAMON ([id number])[facility] (SBHLAB)[address] Potassium [Moles/Vol] 4.4 mmol/L Normal 3.5-5.1 [facility] Comment on above: Result Comment: [facility] potassium values may be up to 0.5 mmol/L lower than serum values. Performed By: #### L [id number], [id number], LAB99, LAB17 ####Medical Technician Assistant: LESLEE HERNANDEZ ([id number])[facility] (SBAB)[address] Protein [Mass/Vol] 6.5 g/dL Normal 6.4-8.3 [facility] Comment on above: Performed By: #### L [id number], [id number], LAB99, LAB17 ####Medical Technician Assistant: LESLEE HERNANDEZ ([phone])[facility] Sodium [Moles/Vol] 142 mmol/L Normal 136-145 [facility] Comment on above: Performed By: #### L [id number], [id number], LAB99, LAB17 ####Medical Technician Assistant: LESLEE HERNANDEZ ([phone])[facility] ([facility])[address] [place] [address] Urea nitrogen [Mass/Vol] 35 mg/dL High 8-21 [facility] Comment on above: Performed By: #### L [id number], [id number], LAB99, LAB17 ####Medical Technician Assistant: LESLEE TURKTYRONE ([phone])[facility] ([facility])[address] ABDOMEN PELVIS WO IV CONT RASTon 07-03-2024 CT ABDOMEN PELVIS WO IV CONTRAST Normal [facility] CT Abdomen and Pelvis WO con traston [...] change of the visualized spine is noted. [facility] Shane Galarza MD - [...] Electronically Signed Date/Time: 07/03/2024 10:38 AM EST [facility] Radiology Study observation (narrative) [facility] Comprehensive metabolic 1998 panelon 07-03-2024 Albumin [Mass/Vol] 3.3 g/dL Low 3.5 - 5.0 g/dL [facility] ALP [Catalytic activity/Vol] 267 U/L High 40 - 150 U/L [facility] ALT [Catalytic activity/Vol] 159 U/L High NINF - 40 U/L [facility] Anion gap [Moles/Vol] 12 mmol/L 3 - 13 mmol/L [facility] AST [Catalytic activity/Vol] 56 U/L High NINF - 34 U/L [facility] Bilirubin [Mass/Vol] 2.4 mg/dL High NINF - 1.2 mg/dL [facility] Calcium [Mass/Vol] 9 mg/dL 8.4 - 10. 2 mg/dL [facility] Chloride [Moles/Vol] 110 mmol/L High 98 - 10 7 mmol/L [facility] CO2 [Moles/Vol] 20 mmol/L Low 22 - 29 mmol/L [facility] Creatinine [Mass/Vol] 2.01 mg/dL High 0.72 - 1.25 mg/dL [facility] GFR/1.73 sq M.predicted (S/P/Bld) [Vol rate/Area] 40.7 mL/min Low - PINF [facility] Comment on above: Calculation based on the Chronic Kidney Disease Epidemiology Collaboration (CKD-EPI) equation refit without adjustment for race Glucose [Mass/Vol] 126 mg/dL High 74 - 100 mg/dL [facility] Interpretation and review of laboratory results Abnormal [facility] Potassium [Moles/Vol] 4.4 mmol/L 3.5 - 5.1 mmol/L [facility] Comment on above: Plasma potassium heidi ues may be up to 0.5 mmol/L lower than serum values. Protein [Mass/Vol] 6.5 g/dL 6.4 - 8.3 g/dL [facility] Sodium [Moles/Vol] 142 mmol/L 136 - 145 mmol/L [facility] Urea nitrogen [Mass/Vol] 35 mg/dL High 8 - 21 mg/dL [facility] ECG 12-LEADon 07-03-2024 ECG 12-LEAD Normal [facility] ED Nursing Noteon 07-03-2024 ED Nursing Note [facility] arrived to transport pt to [facility] . Pt ambulated to [facility] without difficulty. Pt A&O, calm, and cooperative, no signs of distress noted. VS stable. Resp even, non labored. Normal [facility] ED Nursing Note Attempted to call report to T1 at [facility] no answer. Normal [facility] ED Nursing Note Pt given bedside table to food tray Normal [facility] ED Nursing Note Pt given urinal aske d to void if able. Pt states he does not have to urinate at this time. Normal [facility] ED Nursing Note Patient refusing to let this RN attempt IV without ultra sound. Patient states I dont want you to poke me without it Normal [facility] ED Nursing Note This RN attempted IV stick multiple times and was unsuccessful. Charge nurse notified. Normal [facility] ED Nursing Note Patient requesting t o be placed on oxygen. Patients oxygen saturation was 98% on room air at time of triage. Patient is now 95% on room air. Patient advised that he does not require oxygen at this time. Normal [facility] ED Nursing Note Patient reports he has a history of heart disease and stage 3 kidney disease. Patient reports shob started last pm. 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 Normal [facility] ED Provider Noteon ED Provider Note Normal [facility] HIGH SENSITIVITY TROPONIN, S ERIAL BASELINEon 07-03-2024 TROPONIN HIGH SENSITIVITY BASELINE 39 ng/L High <=35 [facility] Comment on above: Performed By: #### L [id number], [id number], LAB99, LAB17 ####Medical Technician Assistant: LESLEE HERNANDEZ ([id number])[facility] ([facility])[address] [place] [address] HIGH SENSITIVITY TROPONIN, S ERIAL, SECOND TESTon 07-03-2024 TROPONIN HS DELTA, BASELINE TO SECOND -6 ng/L Normal <=2 [facility] Comment on above: Result Comment: This specimen [...] further clinical guidance. Performed By: #### L [id number] ####Medical Technician Assistant: LESLEE HERNANDEZ ([phone])[facility] ([facility])[address] [place] [address] TROPONIN HS, SERIAL REFLEX, TEST TWO 33 ng/L Normal <=35 [facility] Comment on above: Performed By: #### L [id number] ####Medical Technician Assistant: LESLEE HERNANDEZ ([phone])[facility] ([facility])[address] LACTIC ACID WITH REFLEXon Lactate [Moles/Vol] 2.5 mmol/L High 0.5-2.2 [facility] Comment on above: Performed By: #### L [id number] ####Medical Technician Assistant: NICOLE BOWERS ([phone])[facility] (SACLAB)[address] [place] [address] Lactate [Moles/Vol] 2.2 mmol/L Normal 0.5-2.2 [facility] Comment on above: Performed By: #### L [id number] ####Medical Technician Assistant: LESLEE HERNANDEZ ([phone])[facility] (SBAB)[address] LIPASEon 07-03-2024 Lipase [Catalytic activity/Vol] 18 U/L Normal <55 [facility] Comment on above: Performed By: #### L [id number], [id number], LAB99, LAB17 ####Medical Technician Assistant: LESLEE HERNANDEZ ([id number])[facility] (SBHLAB)[address] [place] [address] Laboratory - Chemistry and C hemistry - challengeon 07-03-2024 Lactate [Moles/Vol] 2.5 mmol/L High 0.5 - 2. 2 mmol/L [facility] Lactate [Moles/Vol] 2.2 mmol/L 0.5 - 2. 2 mmol/L [facility] Lipase [Catalytic activity/Vol] 18 U/L NINF - 55 U/L [facility] Laboratory - Chemistry and C hemistry - challengeOrdered By: Zoie Stein on 07-03-2024 Base excess Calc (BldV) [Moles/Vol] -6.8000 mmol/L Low -3.0 - 3.0 mmol/L [facility] CO2 (BldV) [Partial pressure] 36.1 mm[Hg] Low [facility] CO2 [Moles/Vol] 19.5 mmol/L Low 23.0 - 30.0 mmol/L [facility] HCO3 (Bld) [Moles/Vol] 18.4 mmol/L Low 21.0 - 30.0 mmol/L [facility] Oxygen (BldV) [Partial pressure] 39.3 mm[Hg] mm Hg [facility] pH (BldV) 7.325 [pH] 7.320 - 7.[address] [facility] Laboratory - Hematology and Cell countsOrdered By: Zoie Stein on 07-03-2024 Hemoglobin (Bld) [Mass/Vol] 15.2 g/dL Screen only [facility] Lipase [Catalytic activity/V ol]on 07-03-2024 Interpretation and review of laboratory results Normal [facility] NT PRO BNPon 07-03-2024 Natriuretic peptide B (Bld) [Mass/Vol] 06958 pg/mL High <125 [facility] Comment on above: Performed By: #### L [id number], [id number], LAB99, LAB17 ####Medical Technician Assistant: LESLEE HERNANDEZ ([phone])[facility] ([facility])[address] [place] [address] Natriuretic peptide B [Mass/ Vol]on 07-03-2024 Interpretation and review of laboratory results Abnormal [facility] Natriuretic peptide B (Bld) [Mass/Vol] 09503 pg/mL High NINF - 125 pg/mL [facility] No Panel Informationon 07-03 Interpretation and review of laboratory results Abnormal [facility] Incomplete analysis due to missing data in precordial lead(s) Sinus tachycardia Left atrial enlargement Left ventricular hypertrophy Nonspecific T abnormalities, lateral leads Borderline prolonged QT interval Electronically Signed On 07-03-2024 20:41:11 EST by Cornelio Joseph Cornelio Lambert M D - 07/03/2024 IMPRESSION: Incomplete analysis due to missing data in precordial lead(s) Sinus tachycardia Left atrial enlargement Left ventricular hypertrophy Nonspecific T abnormalities, lateral leads Borderline prolonged QT interval Electronically Signed On 07-03-2024 20:41:11 EST by Cornelio Joseph [facility] Interpretation and review of laboratory results Normal [facility] Troponin HS Delta, Baseline to Second -6 ng/L NINF - 2 ng/L [facility] Comment on above: This specimen was [...] Second 33 ng/L NINF - 35 ng/L [employer] Interpretation and review of laboratory results Abnormal [facility] Troponin HS, Serial Baseline 39 ng/L High NINF - 35 ng/L [facility] No Panel InformationOrdered By: Cornelio Joseph on 07-03-2024 P Arden 60 degrees [facility] Phone: KS Interval 153 ms [facility] Phone: QRS Arden -24 degrees [facility] Phone: QRSD Interval 97 ms [employer] Work Phone: QT Interval 350 ms [facility] Phone: QTC Interval 480 ms [facility] Phone: T Wave Arden 89 degrees [facility] Phone: [facility] Phone: No Panel InformationOrdered By: Zoie Stein on 07-03-2024 Interpretation and review of laboratory results Abnormal [facility] Source Of Oxygen Room Air [facility] Assessment of oxygenation is best done with an arterial blood gas determination. Reference ranges for pO2, bicarbonate, and base excess are for mixed venous blood. Specimens drawn from a peripheral vein will often have higher values. [employer] UREA NITROGEN, URINEon 07-03 CREATININE, URINE 115.3 mg/dL Normal 63.0-166.0 [place] Comment on above: Performed By: #### L [id number] ####Medical Technician Assistant: NICOLE BOWERS ([phone])[facility] (SACLAB)[address] [place] [address] UREA (BUN), URINE, FRACTIONAL EXCRETION 30.9 Normal [facility] Comment on above: Result Comment: Frac tional excretion of urea under 35% is consistent with a prerenal cause. Performed By: #### L [id number] ####Medical Technician Assistant: NICOLE BOWERS ([phone])[facility] [place] [address] UREA (BUN), URINE, TUBULAR REABSORPTION 0.7 Normal [facility] Comment on above: Performed By: #### L [id number] ####Medical Technician Assistant: NICOLE BOWERS ([phone])[facility] [place] [address] UREA NITROGEN, URINE 620 mg/dL Normal [facility] Comment on above: Performed By: #### L [id number] ####Medical Technician Assistant: NICOLE BOWERS ([phone])[facility] ([facility])[address] [place] [address] US ABDOMEN LIMITEDon 025 US ABDOMEN LIMITED Normal [facility] US Abdomen [facility] 025 1. Positive sonographic Melendez sign. There [...] MD Electronically Signed Date/Time: 07/03/2024 12:18 PM [facility] Patient Name: CARLO MEDINA : [...] adjacent free fluid is present. Per the sonography technologist, the sonographic Melendez's sign was positive. Bile ducts: No intrahepatic and extrahepatic biliary dilatation Common bile duct: 2 mm Right kidney: Normal size measuring 9.6 cm. Normal parenchymal echogenicity without solid mass or hydronephrosis. Ascites: Small amount of free fluid surrounding the liver and gallbladder [facility] Shane Galarza MD - [...] adjacent free fluid is present. Per the sonography technologist, the sonographic Melendez's sign was positive. [...] MD Electronically Signed Date/Time: 07/03/2024 12:[address] [facility] Radiology Study observation (narrative) [facility] Urinalysis complete panel (U )Ordered By: Helder Blackwell on 07-03-2024 Amorphous Crystals, Urine Few Abnormal Negative /HPF [facility] Bacteria LM.HPF (Urine sed) [#/Area] Negative Negative /HPF [facility] Bilirubin Ql (U) Negative Negative mg/dL [facility] Clarity (U) Turbid Abnormal Clear [facility] Color (U) Yellow Lt. Yellow [facility] Epithelial cells.squamous LM.HPF (Urine sed) [#/Area] 0-[address] [facility] Glucose Ql (U) Normal Normal (<70) mg/dL [facility] Hemoglobin Ql (U) Negative Negative mg/dL [facility] Hyaline casts Auto (Urine sed) [#/Area] 3-5 Abnormal Negative /LPF [facility] Interpretation and review of laboratory results Abnormal [facility] Ketones (U) [Mass/Vol] Negative Negat dai mg/dL [facility] Leukocyte esterase Test strip Ql (U) Negative Negative Nicky/uL [facility] Mucus LM.HPF (Urine sed) [#/Area] Few Negative /LPF [facility] Nitrite Ql (U) Negative Negative [facility] pH (U) 5.5 [pH] 5.0 - 8.0 pH [facility] Protein (U) [Mass/Vol] 100 mg/dL Abnormal Negative [facility] RBC LM.HPF (Urine sed) [#/Area] 3-5 Abnormal [facility] Specific gravity (U) [Rel density] 1.03 1.005 - 1.030 [facility] Spermatozoa LM.HPF (Urine sed) [#/Area] Few Abnormal Negative [facility]HPF [facility] U[facility] (U) [Mass/Vol] Normal Normal (0-1) mg/dL [facility] WBC LM.HPF (Urine sed) [#/Area] 3-5 [facility] Vital signsOrdered By: Nadira Joseph on 07-03-2024 Heart rate 113 /min bpm [facility] Work Phone: Vital signsOrdered By: Zoie Stein on 07-03-2024 Oxygen saturation in Venous blood 60.4 % [facility] XR Chest Single viewon 07-03 FINDINGS [...] MD Electronically Signed Date/Time: 07/03/2024 10:08 AM [facility] Patient Name: CARLO MEDINA : 1980 Exam Date/Time: 07/03/2024 09:50 Procedure: XR CHEST 1 VIEW Ordering Provider: DOVER CONNOR Reason For Exam: sob hx chf CHEST CLINICAL INDICATION: Dyspnea TECHNIQUE: AP portable chest COMPARISON: 06/19/2024 [facility] Shane Galarza MD - [...] effusion. Report Dictated on Electronically Signed By: Shaen Galarza MD Electronically Signed Date/Time: 07/03/2024 10:08 AM EST [facility] [employer] Radiology Study observation (narrative) [employer] XR Chest Single viewOrdered By: Shane Galarza on 07-03-2024 [employer] Work Phone: 29on 07-01-2024 29 Addended by: SEPIDEH TOWNSEND on: 08/20/2024 04:37 PM Modules accepted: Orders Normal [facility] No Panel Informationon 07-01 Sinus Tachycardia -Left atrial enlargement. Voltage criteria for LVH (R(V6) exceeds 2.26 mV). -Nonspecific T-abnormality. ABNORMAL [facility] Progress Noteon 07-01-2024 Progress Note Normal [facility] 36on 06-24-2024 36 Normal [facility] 36on 06-22-2024 36 Normal [facility] [id number] 06-21-2024 [id number] Normal [facility] Nursing Noteon 06-21-2024 Nursing Note Gave patient discharge instructions. Patient verbalized understanding. Discussed the importance of taking the medications as prescribed. Importance of following up with Dr. Burnette and Dr Mccullough. IV discontinued. Meds to beds delivered scripts. Normal [facility] Nursing Note Notified Dr. Shayla Marcano APRN from cardiology regarding 20 beat run of VT through message. ] Normal [facility] Progress Noteon 06-21-2024 Progress Note Normal [facility] Progress Note Normal [facility] Progress Note Normal [facility] Progress Note Normal [facility] 30on 06-20-2024 30 Normal [facility] [id number] 06-20-2024 [id number] [facility] BASIC METABOLIC PANELon 05-31 Anion gap [Moles/Vol] 9 mmol/L Normal 3-13 [facility] Comment on above: Performed By: #### L AB103, [id number], LAB15 ####Medical Technician Assistant: LESLEE HERNANDEZ ([phone])[facility] (SBHLAB)[address] [place] [address] Calcium [Mass/Vol] 7.8 mg/dL Low 8.4-10.2 [facility] Comment on above: Performed By: #### L AB103, [id number], LAB15 ####Medical Technician Assistant: LESLEE HERNANDEZ ([phone])[facility] (SBHLAB)[address] Chloride [Moles/Vol] 104 mmol/L Normal 98-107 [facility] Comment on above: Performed By: #### L AB103, [id number], LAB15 ####Medical Technician Assistant: LESLEE HERNANDEZ ([phone])[facility] (SBHLAB)[address] CO2 [Moles/Vol] 22 mmol/L Normal 22-29 [facility] Comment on above: Performed By: #### L AB103, [id number], LAB15 ####Medical Technician Assistant: LESLEE HERNANDEZ ([phone])[facility] Creatinine [Mass/Vol] 1.55 mg/dL High 0.72-1.25 [facility] Comment on above: Performed By: #### L AB103, [id number], LAB15 ####Medical Technician Assistant: LESLEE HERNANDEZ ([phone])[facility] GLOMERULAR FILTRATION RATE ML/MIN/1.73 SQ M.PREDICTED 55.6 mL/min/1.73m*2 Low >60.0 [facility] Comment on above: Result Comment: Calc ulation based on the Chronic Kidney Disease Epidemiology Collaboration (CKD-EPI) equation refit without adjustment for race Performed By: #### L AB103, [id number], LAB15 ####Medical Technician Assistant: LESLEE HERNANDEZ ([phone])[facility] ([facility])[address] Glucose [Mass/Vol] 171 mg/dL High 74-100 [facility] Comment on above: Performed By: #### L AB103, [id number], LAB15 ####Medical Technician Assistant: LESLEE HERNANDEZ ([phone])[facility] Potassium [Moles/Vol] 3.8 mmol/L Normal 3.5-5.1 [facility] Comment on above: Result Comment: Plas ma potassium values may be up to 0.5 mmol/L lower than serum values. Performed By: #### L AB103, [id number], LAB15 ####Medical Technician Assistant: LESLEE HERNANDEZ ([phone])[facility] ([facility])[address] Sodium [Moles/Vol] 135 mmol/L Low 136-145 [facility] Comment on above: Performed By: #### L AB103, [id number], LAB15 ####Medical Technician Assistant: LESLEEFIDELIA HERNANDEZ ([phone])[facility] ([facility])[address] Urea nitrogen [Mass/Vol] 22 mg/dL High 8-21 [facility] Comment on above: Performed By: #### L AB103, [id number], LAB15 ####Medical Technician Assistant: LESLEE HERNANDEZ ([phone])[facility] ([facility])[address] Basic metabolic 1998 panelon 06-20-2024 Anion gap [Moles/Vol] 9 mmol/L 3 - 13 mmol/L [facility] Calcium [Mass/Vol] 7.8 mg/dL Low 8.4 - 10. 2 mg/dL [facility] Chloride [Moles/Vol] 104 mmol/L 98 - 10 7 mmol/L [facility] CO2 [Moles/Vol] 22 mmol/L 22 - 29 mmol/L [facility] Creatinine [Mass/Vol] 1.55 mg/dL High 0.72 - 1.25 mg/dL [facility] GFR/1.73 sq M.predicted (S/P/Bld) [Vol rate/Area] 55.6 mL/min Low - PINF [facility] Comment on above: Calculation based on the Chronic Kidney Disease Epidemiology Collaboration (CKD-EPI) equation refit without adjustment for race Glucose [Mass/Vol] 171 mg/dL High 74 - 100 mg/dL [facility] Interpretation and review of laboratory results Abnormal [facility] Potassium [Moles/Vol] 3.8 mmol/L 3.5 - 5.1 mmol/L [facility] Comment on above: Plasma potassium heidi ues may be up to 0.5 mmol/L lower than serum values. Sodium [Moles/Vol] 135 mmol/L Low 136 - 145 mmol/L [facility] [employer] Urea nitrogen [Mass/Vol] 22 mg/dL High 8 - 21 mg/dL [facility] CBC W Auto Differential pane l (Bld)on 06-20-2024 Basophils (Bld) [#/Vol] 0 10*3/uL 0.0 - 0.2 10*3/uL [facility] Basophils/100 WBC (Bld) 0.2 % 0.0 - 2.0 % [facility] Eosinophils (Bld) [#/Vol] 0.1 10*3/uL 0.0 - 0.5 10*3/uL [facility] Eosinophils/100 WBC (Bld) 1 % 0.0 - 6.0 % [facility] Erythrocyte distribution width (RBC) [Ratio] 13.6 % 11.5 - 15.0 % [facility] Hematocrit (Bld) [Volume fraction] 41.9 % 40.0 - 52.0 % [facility] Hemoglobin (Bld) [Mass/Vol] 13.7 g/dL 13.0 - 18.0 g/dL [facility] Immature granulocytes (Bld) [#/Vol] 0 10*3/uL NINF - 0.1 10*3/uL [facility] Immature granulocytes/100 WBC (Bld) 0.2 % 0.0 - 2.0 % [facility] Interpretation and review of laboratory results Abnormal [facility] Lymphocytes (Bld) [#/Vol] 1.6 10*3/uL 1.0 - 4.3 10*3/uL [facility] Lymphocytes/100 WBC (Bld) 27.7 % 15.0 - 45.0 % [facility] MCH (RBC) [Entitic mass] 32.4 pg 26.0 - 34.0 pg [facility] MCHC (RBC) [Mass/Vol] 32.7 % 30.5 - 36.0 % [facility] MCV (RBC) [Entitic vol] 99.1 fL High 77.0 - 99.0 fL [facility] Monocytes (Bld) [#/Vol] 0.4 10*3/uL 0.0 - 0.9 10*3/uL [facility] Monocytes/100 WBC (Bld) 6.8 % 5.0 - 13.0 % [facility] Neutrophils (Bld) [#/Vol] 3.8 10*3/uL 1.8 - 7.5 10*3/uL [facility] Neutrophils/100 WBC (Bld) 64.1 % 38.0 - 82.0 % [facility] Nucleated RBC/100 WBC (Bld) [Ratio] 0 % [facility] Platelet mean volume (Bld) [Entitic vol] 10.5 fL 9.0 - 12.7 fL [facility] Platelets (Bld) [#/Vol] 202 10*3/uL 140 - 440 10*3/uL [facility] RBC (Bld) [#/Vol] 4.23 10*6/uL Low 4.40 - 5.9 0 10*6/uL [facility] WBC (Bld) [#/Vol] 5.9 10*3/uL 3.6 - 10.7 10*3/uL [facility] CBC WITH AUTO DIFFERENTIALon 06-20-2024 Basophils (Bld) [#/Vol] 0.0 10*3/uL Normal 0.0-0.2 [facility] Comment on above: Performed By: #### L [id number] ####Medical Technician Assistant: LESLEE HERNANDEZ ([phone])[facility] ([facility])[address] [place] [address] Basophils/100 WBC (Bld) 0.2 % Normal 0.0-2.0 [facility] Comment on above: Performed By: #### L [id number] ####Medical Technician Assistant: LESLEE HERNANDEZ ([phone])[facility] Eosinophils (Bld) [#/Vol] 0.1 10*3/uL Normal 0.0-0.5 [facility] Comment on above: Performed By: #### L [id number] ####Medical Technician Assistant: LESLEE HERNANDEZ ([phone])[facility] Eosinophils/100 WBC (Bld) 1.0 % Normal 0.0-6.0 [facility] Comment on above: Performed By: #### L [id number] ####Medical Technician Assistant: LESLEE TURKTYRONE ([phone])[facility] [place] [address] Erythrocyte distribution width (RBC) [Ratio] 13.6 % Normal 11.5-15.0 [facility] Comment on above: Performed By: #### L [id number] ####Medical Technician Assistant: LESLEE TURKTYRONE ([phone])[facility] Hematocrit (Bld) [Volume fraction] 41.9 % Normal 40.0-52.0 [facility] Comment on above: Performed By: #### L [id number] ####Medical Technician Assistant: LESLEE TURKTYRONE ([phone])[facility] [place] [address] Hemoglobin (Bld) [Mass/Vol] 13.7 g/dL Normal 13.0-18.0 [facility] Comment on above: Performed By: #### L [id number] ####Medical Technician Assistant: LESLEE HERNANDEZ ([phone])[facility] ([facility])[address] [place] [address] IMMATURE GRANS % 0.2 % Normal 0.0-2.0 [facility] Comment on above: Performed By: #### L [id number] ####Medical Technician Assistant: LESLEE TURKTYRONE ([phone])[facility] [place] [address] IMMATURE GRANS ABSOLUTE 0.0 10*3/uL Normal <0.1 [facility] Comment on above: Performed By: #### L [id number] ####Medical Technician Assistant: LESLEE HERNANDEZ ([phone])[facility] [place] [address] Lymphocytes (Bld) [#/Vol] 1.6 10*3/uL Normal 1.0-4.3 [facility] Comment on above: Performed By: #### L [id number] ####Medical Technician Assistant: LESLEE TURKTYRONE ([phone])[facility] [place] ([facility])[address] Lymphocytes/100 WBC (Bld) 27.7 % Normal 15.0-45.0 [facility] Comment on above: Performed By: #### L [id number] ####Medical Technician Assistant: LESLEE HERNANDEZ ([phone])[facility] ([facility])[address] MCH (RBC) [Entitic mass] 32.4 pg Normal 26.0-34.0 [facility] Comment on above: Performed By: #### L [id number] ####Medical Technician Assistant: LESLEE MCNEILLNinoskaTYRONE ([phone])[facility] ([facility])[address] MCHC 32.7 % Normal 30.5-36.0 [facility] Comment on above: Performed By: #### L [id number] ####Medical Technician Assistant: LESLEE TURKTYRONE ([phone])[facility] ([facility])[address] MCV (RBC) [Entitic vol] 99.1 fL High 77.0-99.0 [facility] Comment on above: Performed By: #### L [id number] ####Medical Technician Assistant: LESLEE HERNANDEZ ([phone])[facility] ([facility])[address] Monocytes (Bld) [#/Vol] 0.4 10*3/uL Normal 0.0-0.9 [facility] Comment on above: Performed By: #### L [id number] ####Medical Technician Assistant: LESLEE HERNANDEZ ([phone])[facility] [place] ([facility])[address] Monocytes/100 WBC (Bld) 6.8 % Normal 5.0-13.0 [facility] Comment on above: Performed By: #### L [id number] ####Medical Technician Assistant: LESLEE TURKTYRONE ([phone])[facility] [place] ([facility])[address] NEUTROPHILS ABSOLUTE 3.8 10*3/uL Normal 1.8-7.5 [facility] Comment on above: Performed By: #### L [id number] ####Medical Technician Assistant: LESLEE MCNEILLRAMON ([phone])[facility] [place] ([facility])[address] Neutrophils/100 WBC (Bld) 64.1 % Normal 38.0-82.0 [facility] Comment on above: Performed By: #### L [id number] ####Medical Technician Assistant: LESLEE MCNEILLRAMON ([phone])[facility] [place] ([facility])[address] [place] [address] NRBC 0.0 /100 WBCs Normal 0.0-2.0 [facility] Comment on above: Performed By: #### L [id number] ####Medical Technician Assistant: LESLEE MCNEILLNinoskaTYRONE ([phone])[facility] [place] ([facility])[address] Platelet mean volume (Bld) [Entitic vol] 10.5 fL Normal 9.0-12.7 [facility] Comment on above: Performed By: #### L [id number] ####Medical Technician Assistant: LESLEE HERNANDEZ ([phone])[facility] [place] ([facility])[address] Platelets (Bld) [#/Vol] 202 10*3/uL Normal 140-440 [facility] Comment on above: Performed By: #### L [id number] ####Medical Technician Assistant: LESLEE TURKTYRONE ([phone])[facility] [place] ([facility])[address] RBC (Bld) [#/Vol] 4.23 10*6/uL Low 4.40-5.90 [facility] Comment on above: Performed By: #### L [id number] ####Medical Technician Assistant: LESLEE HERNANDEZ ([phone])[facility] [place] ([facility])[address] WBC (Bld) [#/Vol] 5.9 10*3/uL Normal 3.6-10.7 [facility] Comment on above: Performed By: #### L [id number] ####Medical Technician Assistant: LESLEE HERNANDEZ ([phone])[facility] ([facility])[address] Consulton 06-20-2024 Consult Normal [facility] Laboratory - Chemistry and C hemistry - challengeon 06-20-2024 Magnesium [Mass/Vol] 2.1 mg/dL 1.6 - 2 .6 mg/dL [facility] MAGNESIUMon 06-20-2024 Magnesium [Mass/Vol] 2.1 mg/dL Normal 1.6-2.6 [facility] Comment on above: Result Comment: ALEJANDRO Aleman COMMENTS:Higher values can be expected in females during menses. Performed By: #### L AB103, [id number], LAB15 ####Medical Technician Assistant: LESLEE HERNANDEZ ([phone])[facility]ITALMarguerite ([facility])[address] [place] [address] Magnesium [Mass/Vol]on 06-20 Interpretation and review of laboratory results Normal [facility] Higher values can be expected in females during menses. [facility] NT PRO BNPon 06-20-2024 Natriuretic peptide B (Bld) [Mass/Vol] 97821 pg/mL High <125 [facility] Comment on above: Performed By: #### L AB103, [id number], LAB15 ####Medical Technician Assistant: LESLEE HERNANDEZ ([phone])[facility]uer[facility] ([facility])[address] Natriuretic peptide B [Mass/ Vol]on 06-20-2024 Interpretation and review of laboratory results Abnormal [facility] Natriuretic peptide B (Bld) [Mass/Vol] 10745 pg/mL High NINF - 125 pg/mL [facility] No Panel Informationon 06-20 [facility] Progress Noteon 06-20-2024 [facility] Normal [facility] 30on 06-19-2024 30 Normal [facility] Progress Noteon 06-19-2024 Progress Note Normal [facility] Normal [facility] Progress [facility] Normal [facility] XR Chest 2 Viewson Diffuse enlargement of the cardiac silhouette. Persistent but interval decrease in mild vascular congestion. Report Dictated on Electronically Signed By: Joel Hi MD Electronically Signed Date/Time: 06/19/2024 12:08 PM EST [facility] Patient Name: CARLO MEDINA : 1980 Exam [...] the thoracic spine. No acute osseous findings. [facility] Joel Hi MD - 06/19/2024 Patient Name: [...] Electronically Signed Date/Time: 06/19/2024 12:08 PM EST [facility] Radiology Study observation (narrative) [facility] XR Chest 2 ViewsOrdered By: Joel Hi on 06-19-2024 [facility] Work Phone: BASIC METABOLIC PANELon 05-31 Anion gap [Moles/Vol] 9 mmol/L Normal 3-13 [facility] Comment on above: Performed By: #### L [id number], [id number], [id number], LAB15 ####Medical Technician Assistant: LESLEE HERNANDEZ ([phone])[facility] ([facility])[address] Calcium [Mass/Vol] 7.9 mg/dL Low 8.4-10.2 [facility] Comment on above: Performed By: #### L AB106, [id number], [id number], LAB15 ####Medical Technician Assistant: LESLEE HERNANDEZ ([phone])[facility] ([facility])[address] Chloride [Moles/Vol] 102 mmol/L Normal 98-107 [facility] Comment on above: Performed By: #### L AB106, [id number], [id number], LAB15 ####Medical Technician Assistant: LESLEE HERNANDEZ ([phone])[facility] ([facility])[address] [place] [address] [place] CO2 [Moles/Vol] 25 mmol/L Normal 22-29 [facility] Comment on above: Performed By: #### L AB106, [id number], [id number], LAB15 ####Medical Technician Assistant: LESLEE HERNANDEZ ([phone])[facility] ([facility])[address] Creatinine [Mass/Vol] 1.91 mg/dL High 0.72-1.25 [facility] Comment on above: Performed By: #### L AB106, [id number], [id number], LAB15 ####Medical Technician Assistant: LESLEE HERNANDEZ ([phone])[facility] [place] [address] [place] GLOMERULAR FILTRATION RATE ML/MIN/1.73 SQ M.PREDICTED 43.2 mL/min/1.73m*2 Low >60.0 [facility] Comment on above: Result Comment: Calc ulation based on the Chronic Kidney Disease Epidemiology Collaboration (CKD-EPI) equation refit without adjustment for race Performed By: #### L AB106, [id number], [id number], LAB15 ####Medical Technician Assistant: LESLEE HERNANDEZ ([phone])[facility] Glucose [Mass/Vol] 173 mg/dL High 74-100 [facility] Comment on above: Performed By: #### L AB106, [id number], [id number], LAB15 ####Medical Technician Assistant: LESLEE HERNANDEZ ([phone])[facility] ([facility])[address] Potassium [Moles/Vol] 4.0 mmol/L Normal 3.5-5.1 [facility] Comment on above: Result Comment: [facility] potassium values may be up to 0.5 mmol/L lower than serum values. Performed By: #### L AB106, [id number], [id number], LAB15 ####Medical Technician Assistant: LESLEE HERNANDEZ ([phone])[facility] [place] [address] [place] Sodium [Moles/Vol] 136 mmol/L Normal 136-145 [facility] Comment on above: Performed By: #### L [id number], [id number], [id number], LAB15 ####Medical Technician Assistant: LESLEE HERNANDEZ ([phone])[facility] ([facility])[address] Urea nitrogen [Mass/Vol] 30 mg/dL High 8-21 [facility] Comment on above: Performed By: #### L AB106, [id number], [id number], LAB15 ####Medical Technician Assistant: LESLEE MCNEILLNinoskaTYRONE ([phone])[facility] ([facility])[address] Basic metabolic 1998 panelon 06-18-2024 Anion gap [Moles/Vol] 9 mmol/L 3 - 13 mmol/L [facility] Calcium [Mass/Vol] 7.9 mg/dL Low 8.4 - 10. 2 mg/dL [facility] Chloride [Moles/Vol] 102 mmol/L 98 - 10 7 mmol/L [facility] CO2 [Moles/Vol] 25 mmol/L 22 - 29 mmol/L [facility] Creatinine [Mass/Vol] 1.91 mg/dL High 0.72 - 1.25 mg/dL [facility] GFR/1.73 sq M.predicted (S/P/Bld) [Vol rate/Area] 43.2 mL/min Low - PINF [facility] Comment on above: Calculation based on the Chronic Kidney Disease Epidemiology Collaboration (CKD-EPI) equation refit without adjustment for race Glucose [Mass/Vol] 173 mg/dL High 74 - 100 mg/dL [facility] Interpretation and review of laboratory results Abnormal [facility] Potassium [Moles/Vol] 4 mmol/L 3.5 - 5.1 mmol/L [facility] Comment on above: Plasma potassium heidi ues may be up to 0.5 mmol/L lower than serum values. Sodium [Moles/Vol] 136 mmol/L 136 - 145 mmol/L [facility] Urea nitrogen [Mass/Vol] 30 mg/dL High 8 - 21 mg/dL [facility] CBC W Auto Differential pane l (Bld)on 06-18-2024 Basophils (Bld) [#/Vol] 0 10*3/uL 0.0 - 0.2 10*3/uL [facility] Basophils/100 WBC (Bld) 0.2 % 0.0 - 2.0 % [facility] Eosinophils (Bld) [#/Vol] 0 10*3/uL 0.0 - 0.5 10*3/uL [facility] Eosinophils/100 WBC (Bld) 0.6 % 0.0 - 6.0 % [facility] Erythrocyte distribution width (RBC) [Ratio] 13.9 % 11.5 - 15.0 % [facility] Hematocrit (Bld) [Volume fraction] 46.5 % 40.0 - 52.0 % [facility] Hemoglobin (Bld) [Mass/Vol] 15 g/dL 13.0 - 18.0 g/dL [facility] Immature granulocytes (Bld) [#/Vol] 0 10*3/uL NINF - 0.1 10*3/uL [facility] Immature granulocytes/100 WBC (Bld) 0.2 % 0.0 - 2.0 % [facility] Interpretation and review of laboratory results Abnormal [facility] Lymphocytes (Bld) [#/Vol] 1.8 10*3/uL 1.0 - 4.3 10*3/uL [facility] Lymphocytes/100 WBC (Bld) 34.9 % 15.0 - 45.0 % [facility] MCH (RBC) [Entitic mass] 32.2 pg 26.0 - 34.0 pg [facility] MCHC (RBC) [Mass/Vol] 32.3 % 30.5 - 36.0 % [facility] MCV (RBC) [Entitic vol] 99.8 fL High 77.0 - 99.0 fL [facility] Monocytes (Bld) [#/Vol] 0.3 10*3/uL 0.0 - 0.9 10*3/uL [facility] Monocytes/100 WBC (Bld) 6.4 % 5.0 - 13.0 % [facility] Neutrophils (Bld) [#/Vol] 2.9 10*3/uL 1.8 - 7.5 10*3/uL [facility] Neutrophils/100 WBC (Bld) 57.7 % 38.0 - 82.0 % [facility] Nucleated RBC/100 WBC (Bld) [Ratio] 0 % [facility] Platelet mean volume (Bld) [Entitic vol] 10.6 fL 9.0 - 12.7 fL [facility] Platelets (Bld) [#/Vol] 220 10*3/uL 140 - 440 10*3/uL [facility] RBC (Bld) [#/Vol] 4.66 10*6/uL 4.40 - 5.9 0 10*6/uL [facility] WBC (Bld) [#/Vol] 5 10*3/uL 3.6 - 10.7 10*3/uL [facility] CBC WITH AUTO DIFFERENTIALon 06-18-2024 Basophils (Bld) [#/Vol] 0.0 10*3/uL Normal 0.0-0.2 [facility] Comment on above: Performed By: #### L [id number] ####Medical Technician Assistant: LESLEE HERNANDEZ ([phone])[facility] [place] ([facility])[address] Basophils/100 WBC (Bld) 0.2 % Normal 0.0-2.0 [facility] Comment on above: Performed By: #### L [id number] ####Medical Technician Assistant: LESLEE HERNANDEZ ([phone])[facility] [place] ([facility])[address] Eosinophils (Bld) [#/Vol] 0.0 10*3/uL Normal 0.0-0.5 [facility] Comment on above: Performed By: #### L [id number] ####Medical Technician Assistant: LESLEE HERNANDEZ ([phone])[facility] [place] ([facility])[address] [place] [address] Eosinophils/100 WBC (Bld) 0.6 % Normal 0.0-6.0 [facility] Comment on above: Performed By: #### L [id number] ####Medical Technician Assistant: LESLEE HERNANDEZ ([phone])[facility] [place] ([facility])[address] Erythrocyte distribution width (RBC) [Ratio] 13.9 % Normal 11.5-15.0 [facility] Comment on above: Performed By: #### L [id number] ####Medical Technician Assistant: LESLEE HERNANDEZ ([phone])[facility] [place] ([facility])[address] Hematocrit (Bld) [Volume fraction] 46.5 % Normal 40.0-52.0 [facility] Comment on above: Performed By: #### L [id number] ####Medical Technician Assistant: LESLEE TURKTYRONE ([phone])[facility] Hemoglobin (Bld) [Mass/Vol] 15.0 g/dL Normal 13.0-18.0 [facility] Comment on above: Performed By: #### L [id number] ####Medical Technician Assistant: LESLEE MARY ([phone])[facility] ([facility])[address] IMMATURE GRANS % 0.2 % Normal 0.0-2.0 [facility] Comment on above: Performed By: #### L [id number] ####Medical Technician Assistant: LESLEE TURKTYRONE ([phone])[facility] ([facility])[address] [place] [address] IMMATURE GRANS ABSOLUTE 0.0 10*3/uL Normal <0.1 [facility] Comment on above: Performed By: #### L [id number] ####Medical Technician Assistant: LESLEE TURKTYRONE ([phone])[facility] ([facility])[address] [place] [address] Lymphocytes (Bld) [#/Vol] 1.8 10*3/uL Normal 1.0-4.3 [facility] Comment on above: Performed By: #### L [id number] ####Medical Technician Assistant: LESLEE TURKTYRONE ([phone])[facility] [place] [address] Lymphocytes/100 WBC (Bld) 34.9 % Normal 15.0-45.0 [facility] Comment on above: Performed By: #### L [id number] ####Medical Technician Assistant: LESLEE TURKTYRONE ([phone])[facility] ([facility])[address] [place] [address] MCH (RBC) [Entitic mass] 32.2 pg Normal 26.0-34.0 [facility] Comment on above: Performed By: #### L [id number] ####Medical Technician Assistant: LESLEE MCNEILLNinoskaTYRONE ([phone])[facility] [place] (SBHLAB)[address] MCHC 32.3 % Normal 30.5-36.0 [facility] Comment on above: Performed By: #### L [id number] ####Medical Technician Assistant: LESLEE MARY ([phone])[facility] [place] (SBHLAB)[address] MCV (RBC) [Entitic vol] 99.8 fL High 77.0-99.0 [facility] Comment on above: Performed By: #### L [id number] ####Medical Technician Assistant: LESLEE MARY ([phone])[facility] [place] (SBHLAB)[address] Monocytes (Bld) [#/Vol] 0.3 10*3/uL Normal 0.0-0.9 [facility] Comment on above: Performed By: #### L [id number] ####Medical Technician Assistant: LESLEE TURKTYRONE ([phone])[facility] [place] (SBHLAB)[address] Monocytes/100 WBC (Bld) 6.4 % Normal 5.0-13.0 [facility] Comment on above: Performed By: #### L [id number] ####Medical Technician Assistant: LESLEE TURKTYRONE ([phone])[facility] [place] (SBHLAB)[address] NEUTROPHILS ABSOLUTE 2.9 10*3/uL Normal 1.8-7.5 [facility] Comment on above: Performed By: #### L [id number] ####Medical Technician Assistant: LESLEE TURKTYRONE ([phone])[facility] [place] (SBHLAB)[address] Neutrophils/100 WBC (Bld) 57.7 % Normal 38.0-82.0 [facility] Comment on above: Performed By: #### L [id number] ####Medical Technician Assistant: LESLEE HERNANDEZ ([phone])[facility] [place] (SBHLAB)[address] NRBC 0.0 /100 WBCs Normal 0.0-2.0 [facility] Comment on above: Performed By: #### L [id number] ####Medical Technician Assistant: LESLEE HERNANDEZ ([phone])[facility] [place] (SBHLAB)[address] Platelet mean volume (Bld) [Entitic vol] 10.6 fL Normal 9.0-12.7 [facility] Comment on above: Performed By: #### L [id number] ####Medical Technician Assistant: LESLEE HERNANDEZ ([phone])[facility] [place] (SBHLAB)[address] Platelets (Bld) [#/Vol] 220 10*3/uL Normal 140-440 [facility] Comment on above: Performed By: #### L [id number] ####Medical Technician Assistant: LESLEE HERNANDEZ ([phone])[facility] [place] (SBHLAB)[address] RBC (Bld) [#/Vol] 4.66 10*6/uL Normal 4.40-5.90 [facility] Comment on above: Performed By: #### L [id number] ####Medical Technician Assistant: LESLEE HERNANDEZ ([phone])[facility] [place] (SBHLAB)[address] WBC (Bld) [#/Vol] 5.0 10*3/uL Normal 3.6-10.7 [facility] Comment on above: Performed By: #### L [id number] ####Medical Technician Assistant: LESLEE HERNANDEZ ([phone])[facility] [place] (SBHLAB)[address] ECG 12-LEADon 06-18-2024 ECG 12-LEAD IMPRESSION: Sinus tachycardia Left Atrial enlargement LEFT BUNDLE BRANCH BLOCK Electronically Signed On 06-18-2024 17:45:59 EST by Cleve Luke Normal [facility] HIGH SENSITIVITY TROPONIN, S ERIAL BASELINEon 06-18-2024 TROPONIN HIGH SENSITIVITY BASELINE 44 ng/L High <=35 [facility] Comment on above: Performed By: #### L [id number], [id number], [id number], [id number] ####Medical Technician Assistant: LESLEE HERNANDEZ ([phone])[facility] ([facility])[address] [place] [address] Laboratory - Chemistry and C hemistry - challengeon 06-18-2024 Magnesium [Mass/Vol] 2.1 mg/dL 1.6 - 2 .6 mg/dL [facility] MAGNESIUMon 06-18-2024 Magnesium [Mass/Vol] 2.1 mg/dL Normal 1.6-2.6 [facility] Comment on above: Result Comment: ALEJANDRO Aleman COMMENTS:Higher values can be expected in females during menses. Performed By: #### L [id number], [id number], [id number], LAB15 ####Medical Technician Assistant: LESLEE HERNANDEZ ([phone])[facility] ([facility])[address] [place] [address] Magnesium [Mass/Vol]on 06-18 Interpretation and review of laboratory results Normal [facility] Higher values can be expected in females during menses. [facility] NT PRO BNPon 06-18-2024 Natriuretic peptide B (Bld) [Mass/Vol] 58958 pg/mL High <125 [facility] Comment on above: Performed By: #### L [id number], [id number], [id number], LAB15 ####Medical Technician Assistant: LESLEE HERNANDEZ ([phone])[facility] [place] [address] Natriuretic peptide B [Mass/ Vol]on 06-18-2024 Interpretation and review of laboratory results Abnormal [facility] Natriuretic peptide B (Bld) [Mass/Vol] 32610 pg/mL High NINF - 125 pg/mL [facility] No Panel InformationOrdered By: Jose Carlos Luke on 06-18-2024 P Arden 0 degrees [employer] Work Phone: KS Interval 109 ms [employer] Work Phone: QRS Arden 126 degrees [employer] Work Phone: QRSD Interval 149 ms [employer] Work Phone: QT Interval 419 ms [employer] Work Phone: QTC Interval 581 ms [employer] Work Phone: T Wave Arden -50 degrees [employer] Work Phone: [employer] Work Phone: No Panel Informationon 06-18 Sinus tachycardia Left Atrial enlargement LEFT BUNDLE BRANCH BLOCK Electronically Signed On 06-18-2024 17:45:59 EST by Cleve Luke CV Jose Carlos Mckeon MD - 06/18/2024 IMPRESSION: Sinus tachycardia Left Atrial enlargement LEFT BUNDLE BRANCH BLOCK Electronically Signed On 06-18-2024 17:45:59 EST by Cleve Luke [facility] Interpretation and review of laboratory results Abnormal [facility] Troponin HS, Serial Baseline 44 ng/L High NINF - 35 ng/L [facility] Nursing Noteon 06-18-2024 Nursing Note Patient refusing troponin blood draw at this time. Normal [facility] Nursing Note Normal [facility] Progress Noteon 06-18-2024 [facility] Progress Note [facility] Progress [facility] Normal [facility] Progress Note Normal [facility] Vital signsOrdered By: Danilo Luke on 06-18-2024 Heart rate 115 /min bpm [facility] Work Phone: Anesthesia Noteon 06-17-2024 Anesthesia Note [facility] [place] [facility] Cardiac catheterization stud yon 06-17-2024 No significant [...] was anesthetized with lidocaine injected subcutaneously. 6 Romanian sheath was advanced into the right radial artery using modified Seldinger technique. Standard cocktail of nitroglycerin and verapamil was administered through the sheath. Patient was anticoagulated with IV heparin. Left and right coronary angiograms were performed with 5 Romanian JL 3.5 and JR4 catheters respectively. JR4 [...] modification and optimal medical management. CV [facility] [employer] No Panel Informationon 06-17 Performed by: Pam Alvarado [facility], [address] [place] [address] CLIA ID: [id number] Reportable Results: OxyHemoglobin 0 - 100% Expected Ranges: OxyHemoglobin Arterial Sample 95 - 100%* Adequate Oxygenation >=92% Venous sample 60 - 85%* Note: *OxyHemoglobin Reference Ranges based upon literature review Adequate oxygenation based upon [facility] Clinical Decision [facility] Performed by: [facility], [address] [place] [id number] CLIA ID: [id number] Reportable Results: OxyHemoglobin 0 - 100% Expected Ranges: OxyHemoglobin Arterial Sample 95 - 100%* Adequate Oxygenation >=92% Venous sample 60 - 85%* Note: *OxyHemoglobin Reference Ranges based upon literature review Adequate oxygenation based upon [facility] Clinical Decision [facility] Performed by: [facility], [address] [facility] [address] CLIA ID: [id number] Reportable Results: OxyHemoglobin 0 - 100% Expected Ranges: OxyHemoglobin Arterial Sample 95 - 100%* Adequate Oxygenation >=92% Venous sample 60 - 85%* Note: *OxyHemoglobin Reference Ranges based upon literature review Adequate oxygenation based upon [facility] Clinical Decision [facility] Nursing Noteon 06-17-2024 Nursing Note Patient had a twenty second run of vtach caught on tele monitor. Dr. Mcguire and Gaby Marcano AUTOMAT WATCHER for cardiology notified. No new orders at this time. Normal [facility] Nursing Note Normal [facility] Progress Noteon 06-17-20[address] [facility] Progress Note [facility] Progress Note [facility] Progress Note Normal [facility] Vital signson 06-17-2024 Oxygen saturation in Blood 93 % [facility] Oxygen saturation in Blood 53 % [facility] Oxygen saturation in Blood 49 % [facility] 30on 06-16-2024 30 Normal [facility] BASIC METABOLIC PANELon 05-30 Anion gap [Moles/Vol] 9 mmol/L Normal 3-13 [facility] Comment on above: Performed By: #### L AB15, [id number] ####Medical Technician Assistant: LESLEE HERNANDEZ ([phone])[facility] [place] (SBHLAB)[address] Calcium [Mass/Vol] 8.3 mg/dL Low 8.4-10.2 [facility] Comment on above: Performed By: #### L AB15, [id number] ####Medical Technician Assistant: LESLEE HERNANDEZ ([phone])[facility] [place] (SBHLAB)[address] Chloride [Moles/Vol] 104 mmol/L Normal 98-107 [facility] Comment on above: Performed By: #### L AB15, [id number] ####Medical Technician Assistant: LESLEE HERNANDEZ ([phone])[facility] (SBHLAB)[address] CO2 [Moles/Vol] 27 mmol/L Normal 22-29 [facility] Comment on above: Performed By: #### L AB15, [id number] ####Medical Technician Assistant: LESLEE HERNANDEZ ([phone])[facility] (SBHLAB)[address] Creatinine [Mass/Vol] 1.91 mg/dL High 0.72-1.25 [facility] Comment on above: Performed By: #### L AB15, [id number] ####Medical Technician Assistant: LESLEE HERNANDEZ ([phone])[facility] [place] (SBHLAB)[address] GLOMERULAR FILTRATION RATE ML/MIN/1.73 SQ M.PREDICTED 43.2 mL/min/1.73m*2 Low >60.0 [facility] Comment on above: Result Comment: Calc ulation based on the Chronic Kidney Disease Epidemiology Collaboration (CKD-EPI) equation refit without adjustment for race Performed By: #### L AB15, [id number] ####Medical Technician Assistant: LESLEE HERNANDEZ ([phone])[facility] [place] (SBHLAB)155 [place] [address] [place] Glucose [Mass/Vol] 107 mg/dL High 74-100 [facility] Comment on above: Performed By: #### L AB15, [id number] ####Medical Technician Assistant: LESLEE HERNANDEZ ([phone])[facility] [place] (SBHLAB)[address] Potassium [Moles/Vol] 3.9 mmol/L Normal 3.5-5.1 [facility] Comment on above: Result Comment: [facility] potassium values may be up to 0.5 mmol/L lower than serum values. Performed By: #### L AB15, [id number] ####Medical Technician Assistant: LESLEE HERNANDEZ ([phone])[facility] [place] (SBHLAB)[address] Sodium [Moles/Vol] 140 mmol/L Normal 136-145 [facility] Comment on above: Performed By: #### L AB15, [id number] ####Medical Technician Assistant: LESLEE HERNANDEZ ([phone])[facility] [place] (SBHLAB)[address] Urea nitrogen [Mass/Vol] 31 mg/dL High 8-21 [facility] Comment on above: Performed By: #### L AB15, [id number] ####Medical Technician Assistant: LESLEE HERNANDEZ ([phone])[facility] [place] (SBHLAB)[address] Basic metabolic 1998 panelon 06-16-2024 Anion gap [Moles/Vol] 9 mmol/L 3 - 13 mmol/L [facility] Calcium [Mass/Vol] 8.3 mg/dL Low 8.4 - 10. 2 mg/dL [facility] Chloride [Moles/Vol] 104 mmol/L 98 - 10 7 mmol/L [facility] CO2 [Moles/Vol] 27 mmol/L 22 - 29 mmol/L [facility] Creatinine [Mass/Vol] 1.91 mg/dL High 0.72 - 1.25 mg/dL [facility] GFR/1.73 sq M.predicted (S/P/Bld) [Vol rate/Area] 43.2 mL/min Low - PINF [facility] Comment on above: Calculation based on the Chronic Kidney Disease Epidemiology Collaboration (CKD-EPI) equation refit without adjustment for race Glucose [Mass/Vol] 107 mg/dL High 74 - 100 mg/dL [facility] Interpretation and review of laboratory results Abnormal [facility] Potassium [Moles/Vol] 3.9 mmol/L 3.5 - 5.1 mmol/L [facility] Comment on above: Plasma potassium heidi ues may be up to 0.5 mmol/L lower than serum values. Sodium [Moles/Vol] 140 mmol/L 136 - 145 mmol/L [facility] [employer] Urea nitrogen [Mass/Vol] 31 mg/dL High 8 - 21 mg/dL [facility] [employer] CBC W Auto Differential pane l (Bld)Ordered By: Jessica Santoro on 06-16-2024 Basophils (Bld) [#/Vol] 0 10*3/uL 0.0 - 0.2 10*3/uL [facility] [employer] Basophils/100 WBC (Bld) 0.4 % 0.0 - 2.0 % [facility] Eosinophils (Bld) [#/Vol] 0.1 10*3/uL 0.0 - 0.5 10*3/uL [facility] Eosinophils/100 WBC (Bld) 0.9 % 0.0 - 6.0 % [facility] Erythrocyte distribution width (RBC) [Ratio] 13.6 % 11.5 - 15.0 % [facility] Hematocrit (Bld) [Volume fraction] 47.5 % 40.0 - 52.0 % [facility] Hemoglobin (Bld) [Mass/Vol] 15.6 g/dL 13.0 - 18.0 g/dL [facility] [employer] Immature granulocytes (Bld) [#/Vol] 0 10*3/uL NINF - 0.1 10*3/uL [facility] Immature granulocytes/100 WBC (Bld) 0.2 % 0.0 - 2.0 % [facility] Interpretation and review of laboratory results Abnormal [facility] [employer] Lymphocytes (Bld) [#/Vol] 2 10*3/uL 1.0 - 4.3 10*3/uL [facility] Lymphocytes/100 WBC (Bld) 35.3 % 15.0 - 45.0 % [facility] MCH (RBC) [Entitic mass] 32.6 pg 26.0 - 34.0 pg [facility] [employer] MCHC (RBC) [Mass/Vol] 32.8 % 30.5 - 36.0 % [facility] MCV (RBC) [Entitic vol] 99.2 fL High 77.0 - 99.0 fL [facility] [employer] Monocytes (Bld) [#/Vol] 0.5 10*3/uL 0.0 - 0.9 10*3/uL [facility] Monocytes/100 WBC (Bld) 8.1 % 5.0 - 13.0 % [facility] Neutrophils (Bld) [#/Vol] 3.1 10*3/uL 1.8 - 7.5 10*3/uL [facility] Neutrophils/100 WBC (Bld) 55.1 % 38.0 - 82.0 % [facility] Nucleated RBC/100 WBC (Bld) [Ratio] 0 % [facility] Platelet mean volume (Bld) [Entitic vol] 10.3 fL 9.0 - 12.7 fL [facility] Platelets (Bld) [#/Vol] 195 10*3/uL 140 - 440 10*3/uL [facility] RBC (Bld) [#/Vol] 4.79 10*6/uL 4.40 - 5.9 0 10*6/uL [facility] WBC (Bld) [#/Vol] 5.5 10*3/uL 3.6 - 10.7 10*3/uL [facility] CBC WITH AUTO DIFFERENTIALon 06-16-2024 Basophils (Bld) [#/Vol] 0.0 10*3/uL Normal 0.0-0.2 [facility] Comment on above: Performed By: #### L [id number] ####Medical Technician Assistant: LESLEE HERNANDEZ ([phone])[facility] ([facility])[address] [place] [address] Basophils/100 WBC (Bld) 0.4 % Normal 0.0-2.0 [facility] Comment on above: Performed By: #### L [id number] ####Medical Technician Assistant: LESLEE HERNANDEZ ([phone])[facility])[address] [place] [address] Eosinophils (Bld) [#/Vol] 0.1 10*3/uL Normal 0.0-0.5 [facility] Comment on above: Performed By: #### L [id number] ####Medical Technician Assistant: LESLEE HERNANDEZ ([phone])[facility] (SBHLAB)[address] Eosinophils/100 WBC (Bld) 0.9 % Normal 0.0-6.0 [facility] Comment on above: Performed By: #### L [id number] ####Medical Technician Assistant: LESLEE HERNANDEZ ([phone])[facility] (SBHLAB)[address] Erythrocyte distribution width (RBC) [Ratio] 13.6 % Normal 11.5-15.0 [facility] Comment on above: Performed By: #### L [id number] ####Medical Technician Assistant: LESLEE HERNANDEZ ([phone])[facility] [place] [facility] Hematocrit (Bld) [Volume fraction] 47.5 % Normal 40.0-52.0 [facility] Comment on above: Performed By: #### L [id number] ####Medical Technician Assistant: LESLEE HERNANDEZ ([phone])[facility] (SBHLAB)[address] Hemoglobin (Bld) [Mass/Vol] 15.6 g/dL Normal 13.0-18.0 [facility] Comment on above: Performed By: #### L [id number] ####Medical Technician Assistant: LESLEE HERNANDEZ ([phone])[facility] (SBHLAB)[address] IMMATURE GRANS % 0.2 % Normal 0.0-2.0 [facility] Comment on above: Performed By: #### L [id number] ####Medical Technician Assistant: LESLEE HERNANDEZ ([phone])[facility] (SBHLAB)[address] IMMATURE GRANS ABSOLUTE 0.0 10*3/uL Normal <0.1 [facility] Comment on above: Performed By: #### L [id number] ####Medical Technician Assistant: LESLEE HERNANDEZ ([phone])[facility] (SBHLAB)[address] Lymphocytes (Bld) [#/Vol] 2.0 10*3/uL Normal 1.0-4.3 [facility] Comment on above: Performed By: #### L [id number] ####Medical Technician Assistant: LESLEE TURKTYRONE ([phone])[facility] [place] (SBHLAB)[address] Lymphocytes/100 WBC (Bld) 35.3 % Normal 15.0-45.0 [facility] Comment on above: Performed By: #### L [id number] ####Medical Technician Assistant: LESLEE TURKTYRONE ([phone])[facility] [place] (SBHLAB)[address] MCH (RBC) [Entitic mass] 32.6 pg Normal 26.0-34.0 [facility] Comment on above: Performed By: #### L [id number] ####Medical Technician Assistant: LESLEE TURKTYRONE ([phone])[facility] [place] (SBHLAB)[address] MCHC 32.8 % Normal 30.5-36.0 [facility] Comment on above: Performed By: #### L [id number] ####Medical Technician Assistant: LESLEE HERNANDEZ ([phone])[facility] [place] (SBHLAB)[address] MCV (RBC) [Entitic vol] 99.2 fL High 77.0-99.0 [facility] Comment on above: Performed By: #### L [id number] ####Medical Technician Assistant: LESLEE HERNANDEZ ([phone])[facility] [place] (SBHLAB)[address] Monocytes (Bld) [#/Vol] 0.5 10*3/uL Normal 0.0-0.9 [facility] Comment on above: Performed By: #### L [id number] ####Medical Technician Assistant: LESLEE HERNANDEZ ([phone])[facility] [place] (SBHLAB)[address] Monocytes/100 WBC (Bld) 8.1 % Normal 5.0-13.0 [facility] Comment on above: Performed By: #### L [id number] ####Medical Technician Assistant: LESLEE HERNANDEZ ([phone])[facility] [place] (SBHLAB)[address] NEUTROPHILS ABSOLUTE 3.1 10*3/uL Normal 1.8-7.5 [facility] Comment on above: Performed By: #### L [id number] ####Medical Technician Assistant: LESLEE HERNANDEZ ([phone])[facility] [place] (SBHLAB)[address] Neutrophils/100 WBC (Bld) 55.1 % Normal 38.0-82.0 [facility] Comment on above: Performed By: #### L [id number] ####Medical Technician Assistant: LESLEE HERNANDEZ ([phone])[facility] [place] (SBHLAB)[address] NRBC 0.0 /100 WBCs Normal 0.0-2.0 [facility] Comment on above: Performed By: #### L [id number] ####Medical Technician Assistant: LESLEE HERNANDEZ ([phone])[facility] [place] (SBHLAB)[address] Platelet mean volume (Bld) [Entitic vol] 10.3 fL Normal 9.0-12.7 [facility] Comment on above: Performed By: #### L [id number] ####Medical Technician Assistant: LESLEE HERNANDEZ ([phone])[facility] [place] (SBHLAB)[address] [place] [address] [place] Platelets (Bld) [#/Vol] 195 10*3/uL Normal 140-440 [facility] Comment on above: Performed By: #### L [id number] ####Medical Technician Assistant: LESLEE HERNANDEZ ([phone])[facility] [place] (SBHLAB)[address] [place] [address] [place] RBC (Bld) [#/Vol] 4.79 10*6/uL Normal 4.40-5.90 [facility] Comment on above: Performed By: #### L [id number] ####Medical Technician Assistant: LESLEE HERNANDEZ ([phone])[facility] ([facility])[address] [place] [address] WBC (Bld) [#/Vol] 5.5 10*3/uL Normal 3.6-10.7 [facility] Comment on above: Performed By: #### L [id number] ####Medical Technician Assistant: LESLEE HERNANDEZ ([phone])[facility] [place] [address] Laboratory - Chemistry and C hemistry - challengeon 06-16-2024 Magnesium [Mass/Vol] 1.7 mg/dL 1.6 - 2 .6 mg/dL [facility] MAGNESIUMon 06-16-2024 Magnesium [Mass/Vol] 1.7 mg/dL Normal 1.6-2.6 [facility] Comment on above: Result Comment: ALEJANDRO Aleman COMMENTS:Higher values can be expected in females during menses. Performed By: #### L AB15, [id number] ####Medical Technician Assistant: LESLEE HERNANDEZ ([phone])[facility] ([facility])[address] [place] [address] Magnesium [Mass/Vol]on 06-16 Interpretation and review of laboratory results Normal [facility] Higher values can be expected in females during menses. [facility] No Panel Informationon 06-16 [facility] Nursing Noteon 06-16-2024 Nursing Note Normal [facility] Progress Noteon 06-16-2024 Progress Note Normal [facility] Progress Note Normal [facility] Progress Note Normal [facility] [facility] 30on 06-15-2024 30 Normal [facility] [id number] 06-15-2024 [id number] Normal [facility] CHLORIDE, URINE, RANDOMon CHLORIDE, UR RANDOM 128 mmol/L Normal [facility] Comment on above: Performed By: #### L AB374, [id number], UXC865, [id number] ####Medical Technician Assistant: LESLEE HERNANDEZ ([phone])[facility] ([facility])[address] CHLORIDE, URINE, FRACTIONAL EXCRETION 16.0 Normal [facility] Comment on above: Performed By: #### L AB374, [id number], YYQ827, [id number] ####Medical Technician Assistant: LESLEE HERNANDEZ ([phone])[facility] ([facility])[address] CHLORIDE, URINE, TUBULAR REABSORPTION 0.8 Normal [facility] Comment on above: Performed By: #### L AB374, ADE343, NFZ830, YBO922 ####Medical Technician Assistant: LESLEE HERNANDEZ ([phone])[facility] [place] (SBHLAB)[address] [place] [address] CREATININE, URINE 18.7 mg/dL Low 63.0-166.0 [facility] Comment on above: Performed By: #### L AB374, NAR069, RGR669, QSV524 ####Medical Technician Assistant: LESLEE HERNANDEZ ([phone])[facility] (SB[facility])[address] [place] [address] COMPLETE URINALYSISon 2023 BILIRUBIN, TOTAL PRESENCE IN URINE Negative Normal Negative [facility] Comment on above: Performed By: #### L AB347 ####Medical Technician Assistant: LESLEE HERNANDEZ ([phone])[facility] (SB[facility])[address] Clarity (U) Clear Normal Clear [facility] Comment on above: Performed By: #### L AB347 ####Medical Technician Assistant: LESLEE HERNANDEZ ([phone])[facility] ([facility])[address] Color (U) Colorless Normal Lt. Yellow [facility] Comment on above: Performed By: #### L AB347 ####Medical Technician Assistant: LESLEE TURKTYRONE ([phone])[facility] (SBHLAB)[address] [place] [address] [place] GLUCOSE (MG/DL) IN URINE Normal Normal Normal (<70) [facility]S Comment on above: Performed By: #### L AB347 ####Medical Technician Assistant: LESLEE HERNANDEZ ([phone])[facility] (SBHLAB)[address] [place] [address] [place] HEMOGLOBIN PRESENCE IN URINE Negative Normal Negative [facility] Comment on above: Performed By: #### L AB347 ####Medical Technician Assistant: LESLEE HERNANDEZ ([phone])[facility] (HLAB)[address] Ketones Ql (U) Negative Normal Negative [facility]S Comment on above: Performed By: #### L AB347 ####Medical Technician Assistant: LESLEE HERNANDEZ ([phone])[facility] (HLAB)[address] LEUKOCYTE ESTERASE PRESENCE IN URINE BY TEST STRIP Negative Normal Negative [facility] Comment on above: Performed By: #### L AB347 ####Medical Technician Assistant: LESLEE TURKTYRONE ([phone])[facility] (SBHLAB)[address] [place] [address] [place] NITRITE PRESENCE IN URINE Negative Normal Negative [facility] Comment on above: Performed By: #### L AB347 ####Medical Technician Assistant: LESLEE HERNANDEZ ([phone])[facility] (SBHLAB)[address] [place] [address] [place] pH (U) 5.5 [pH] Normal 5.0-8.0 [facility] Comment on above: Performed By: #### L AB347 ####Medical Technician Assistant: LESLEE HERNANDEZ ([phone])[facility] (SBHLAB)[address] [place] [address] [place] Protein (U) [Mass/Vol] Negative Normal Negative [facility] Comment on above: Performed By: #### L AB347 ####Medical Technician Assistant: LESLEE HERNANDEZ ([phone])[facility] [place] (SBHLAB)[address] Specific gravity (U) [Rel density] 1.007 Normal 1.005-1.030 [facility] Comment on above: Performed By: #### L AB347 ####Medical Technician Assistant: LESLEE HERNANDEZ ([phone])[facility] [place] (SBHLAB)[address] UROBILINOGEN (MG/DL) IN URINE Normal Normal Normal (0-1) [facility] Comment on above: Performed By: #### L AB347 ####Medical Technician Assistant: LESLEE HERNANDEZ ([phone])[facility] [place] [address] COMPREHENSIVE METABOLIC PANE Ming 06-15-2024 Albumin [Mass/Vol] 3.0 g/dL Low 3.5-5.0 [facility] Comment on above: Performed By: #### L AB17, ZQX161, JXD901 ####Medical Technician Assistant: LESLEE HERNANDEZ ([phone])[facility] [place] (HLAB)[address] ALP [Catalytic activity/Vol] 110 U/L Normal 40-150 [facility] Comment on above: Performed By: #### L AB17, EUP338, ARB478 ####Medical Technician Assistant: LESLEE HERNANDEZ ([phone])[facility] [place] (SBHLAB)[address] ALT [Catalytic activity/Vol] 96 U/L High <40 [facility] Comment on above: Performed By: #### L AB17, UQL627, QGJ870 ####Medical Technician Assistant: LESLEE HERNANDEZ ([phone])[facility] (SBHLAB)[address] Anion gap [Moles/Vol] 15 mmol/L High 3-13 [facility] SHS Comment on above: Performed By: #### L AB17, SVX565, QPY273 ####Medical Technician Assistant: LESLEE HERNANDEZ ([phone])[facility] [place] (SBHLAB)[address] AST [Catalytic activity/Vol] 31 U/L Normal <34 [facility] Comment on above: Performed By: #### L AB17, [id number], PZN130 ####Medical Technician Assistant: LESLEE HERNANDEZ ([phone])[facility] [place] (SBHLAB)[address] Bilirubin [Mass/Vol] 1.6 mg/dL High <1.2 [facility] Comment on above: Performed By: #### L AB17, AZD020, FTV242 ####Medical Technician Assistant: LESLEE TURKTYRONE ([phone])[facility] [place] (SBHLAB)[address] Calcium [Mass/Vol] 8.9 mg/dL Normal 8.4-10.2 [facility] Comment on above: Performed By: #### L AB17, XMU197, TMC069 ####Medical Technician Assistant: LESLEE HERNANDEZ ([phone])[facility] [place] (SBHLAB)[address] [place] [address] [place] Chloride [Moles/Vol] 103 mmol/L Normal 98-107 [facility] Comment on above: Performed By: #### L AB17, MVN929, OPW853 ####Medical Technician Assistant: LESLEE HERNANDEZ ([phone])[facility] [place] (SBHLAB)[address] [place] [address] [place] CO2 [Moles/Vol] 26 mmol/L Normal 22-29 [facility] SHS Comment on above: Performed By: #### L AB17, SSO346, PMH302 ####Medical Technician Assistant: LESLEE HERNANDEZ ([phone])[facility] [place] (SBHLAB)[address] [place] [address] [place] Creatinine [Mass/Vol] 2.41 mg/dL High 0.72-1.25 [facility] Comment on above: Performed By: #### L AB17, GFK310, EOC490 ####Medical Technician Assistant: LESLEE HERNANDEZ ([phone])[facility] ([facility])[address] GLOMERULAR FILTRATION RATE ML/MIN/1.73 SQ M.PREDICTED 32.7 mL/min/1.73m*2 Low >60.0 [facility] Comment on above: Result Comment: Calc ulation based on the Chronic Kidney Disease Epidemiology Collaboration (CKD-EPI) equation refit without adjustment for race Performed By: #### L AB17, [id number], OON081 ####Medical Technician Assistant: LESLEE HERNANDEZ ([phone])[facility] ([facility])[address] Glucose [Mass/Vol] 103 mg/dL High 74-100 [facility] Comment on above: Performed By: #### L AB17, SZX028, LMR575 ####Medical Technician Assistant: LESLEE HERNANDEZ ([phone])[facility] ([facility])[address] Potassium [Moles/Vol] 4.1 mmol/L Normal 3.5-5.1 [facility] Comment on above: Result Comment: [facility] potassium values may be up to 0.5 mmol/L lower than serum values. Performed By: #### L AB17, [id number], JJK446 ####Medical Technician Assistant: LESLEE HERNANDEZ ([phone])[facility] [place] [address] [place] Protein [Mass/Vol] 5.7 g/dL Low 6.4-8.3 [facility] Comment on above: Performed By: #### L AB17, CIS922, [id number] ####Medical Technician Assistant: LESLEE HERNANDEZ ([phone])[facility] [place] [address] [place] Sodium [Moles/Vol] 144 mmol/L Normal 136-145 [facility] Comment on above: Performed By: #### L AB17, [id number], CYO217 ####Medical Technician Assistant: LESLEE TORRESCER ([phone])[facility] (SBHLAB)[address] Urea nitrogen [Mass/Vol] 37 mg/dL High 8-21 [facility] Comment on above: Performed By: #### L AB17, PGL397, XND438 ####Medical Technician Assistant: LESLEE MARY ([id number])[facility]ITALMarguer[facility] (SBHLAB)[address] Comprehensive metabolic 1998 panelOrdered By: Alexandra Sin on 06-15-2024 Albumin [Mass/Vol] 3 g/dL Low 3.5 - 5.0 g/dL [facility] ALP [Catalytic activity/Vol] 110 U/L 40 - 150 U/L [facility] ALT [Catalytic activity/Vol] 96 U/L High NINF - 40 U/L [facility] Anion gap [Moles/Vol] 15 mmol/L High 3 - 13 mmol/L [facility] AST [Catalytic activity/Vol] 31 U/L NINF - 34 U/L [facility] Bilirubin [Mass/Vol] 1.6 mg/dL High NINF - 1.2 mg/dL [facility] Calcium [Mass/Vol] 8.9 mg/dL 8.4 - 10. 2 mg/dL [facility] Chloride [Moles/Vol] 103 mmol/L 98 - 10 7 mmol/L [facility] CO2 [Moles/Vol] 26 mmol/L 22 - 29 mmol/L [facility] Creatinine [Mass/Vol] 2.41 mg/dL High 0.72 - 1.25 mg/dL [facility] GFR/1.73 sq M.predicted (S/P/Bld) [Vol rate/Area] 32.7 mL/min Low - PINF [facility] Comment on above: Calculation based on the Chronic Kidney Disease Epidemiology Collaboration (CKD-EPI) equation refit without adjustment for race Glucose [Mass/Vol] 103 mg/dL High 74 - 100 mg/dL [facility] Interpretation and review of laboratory results Abnormal [facility] Potassium [Moles/Vol] 4.1 mmol/L 3.5 - 5.1 mmol/L [facility] Comment on above: Plasma potassium heidi ues may be up to 0.5 mmol/L lower than serum values. Protein [Mass/Vol] 5.7 g/dL Low 6.4 - 8.3 g/dL [facility] Sodium [Moles/Vol] 144 mmol/L 136 - 145 mmol/L [facility] Urea nitrogen [Mass/Vol] 37 mg/dL High 8 - 21 mg/dL [facility] Consulton 06-15-2024 Consult Normal [facility] Laboratory - Chemistry and C hemistry - challengeon 06-15-2024 Sodium (24H U) [Mass/Vol] 118 mmol/L [facility] Chloride (U) [Moles/Vol] 128 mmol/L [facility] TSH Qn 1.52 m[IU]/L [facility] Magnesium [Mass/Vol] 1.8 mg/dL 1.6 - 2 .6 mg/dL [facility] Laboratory - Urinalysison Protein (U) [Mass/Vol] mg/dL NINF - 14 mg/dL [facility] MAGNESIUMon 06-15-2024 Magnesium [Mass/Vol] 1.8 mg/dL Normal 1.6-2.6 [facility] Comment on above: Result Comment: ALEJANDRO Aleman COMMENTS:Higher values can be expected in females during menses. Performed By: #### L AB17, MIF525, NLL162 ####Medical Technician Assistant: LESLEE HERNANDEZ ([phone])[facility] ([facility])[address] [place] [address] MICROALBUMIN / CREATININE UR INE RATIOon 06-15-2024 MICROALBUMIN, URINE 5.0 ug/mL Normal [facility] Comment on above: Result Comment: ALEJANDRO Aleman COMMENTS:Microalbumin concentrations <30 are considered normal, 30-300 are considered microalbuminuria (or risk of diabetic nephropathy), and >300 are considered clinical albuminuria (clinical nephropathy).Diabetes Care,27, Supplement 1, J95-53, 2003 Performed By: #### L AB374, VWP472, HFY498, GNM392 ####Medical Technician Assistant: LESLEE HERNANDEZ ([phone])[facility] (SBHLAB)[address] MICROALBUMIN/CREATININ E RATIO 27 mg/g Normal <30 [facility] Comment on above: Performed By: #### L AB374, QDM755, FJB323, EZJ765 ####Medical Technician Assistant: LESLEE HERNANDEZ ([phone])[facility] (SBHLAB)[address] Magnesium [Mass/Vol]on 06-15 Interpretation and review of laboratory results Normal [facility] Higher values can be expected in females during menses. [facility] Microalbumin/Creatinine rati o panel (U)on 06-15-2024 Albumin DL <= 20 mg/L (U) [Mass/Vol] 5 ug/mL [facility] Albumin/Creatinine DL <= 20 mg/L (U) [Mass ratio] 27 mg/g NINF - 30 mg/g [facility] Microalbumin concentrations <30 are considered normal, 30-300 are considered microalbuminuria (or risk of diabetic nephropathy), and >300 are considered clinical albuminuria (clinical nephropathy). Diabetes Care,27, Supplement 1, H29-32, 2004 [facility] No Panel Informationon 06-15 CREATININE, URINE 18.7 mg/dL Low 63.0 - 166 .0 mg/dL [facility] Interpretation and review of laboratory results Abnormal [facility] SODIUM, URINE, FRACTIONAL EXCRETION 10.6 [facility]IUM, URINE, TUBULAR REABSORPTION 0.9 [facility] CHLORIDE, URINE, FRACTIONAL EXCRETION 16 [facility] CHLORIDE, URINE, TUBULAR REABSORPTION 0.8 [facility] Nursing Noteon 06-15-2024 Nursing Note Patient is resting i n bed. Bed in low position and locked with call light in reach. Normal [facility] PROTEIN, URINE, RANDOMon TOTAL PROTEIN, UR <7 Normal <14 [facility] Comment on above: Performed By: #### L AB374, CTW524, LWL603, EAW905 ####Medical Technician Assistant: LESLEE HERNANDEZ ([phone])[facility] (SBHLAB)[address] Progress Noteon 06-15-2024 Progress Note Normal [facility]S Progress Note Normal [facility] SODIUM, URINE, RANDOMon 05-30 Sodium (U) [Moles/Vol] 118 mmol/L Normal [facility] Comment on above: Performed By: #### L AB374, KGD600, XJD818, EHD919 ####Medical Technician Assistant: LESLEE HERNANDEZ ([phone])[facility] (SBHLAB)[address] SODIUM, URINE, FRACTIONAL EXCRETION 10.[address] [facility] Comment on above: Performed By: #### L AB374, LWH573, RUU830, [id number] ####Medical Technician Assistant: LESLEE HERNANDEZ ([phone])[facility] (SBHLAB)[address] [place] [address] SODIUM, URINE, TUBULAR REABSORPTION 0.9 Normal [facility] Comment on above: Performed By: #### L AB374, ZNL406, UQH543, FST424 ####Medical Technician Assistant: LESLEE HERNANDEZ ([phone])[facility] (SBHLAB)[address] [place] [address] THYROID STIMULATING HORMONEo n 06-15-2024 THYROID STIMULATING HORMONE 1.52 uIU/mL Normal 0.35-4.94 [facility] Comment on above: Performed By: #### L AB17, SHX404, ZMA597 ####Medical Technician Assistant: LESLEE HERNANDEZ ([phone])[facility] (SBHLAB)[address] TSH Qnon 06-15-2024 Interpretation and review of laboratory results Normal [facility] Heart TransthoracicOrdere d By: Ofelia Villalobos on 06-15-2024 Ao Root Index 1.39 cm/m2 [facility] Work Phone: Aortic Arch 3 cm [facility] Work Phone: Aortic Root 2.8 cm [facility] Work Phone: Aortic Sinus Valsalva 2.8 cm [facility] Work Phone: Aortic Sinus Valsalva Index 1.39 cm/m2 [facility] Work Phone: Ascending Aorta 3.2 cm [facility] Work Phone: Ascending Aorta Index 1.58 cm/m2 [facility] Work Phone: AV Area by Peak Velocity 2.9 cm2 [facility] Work Phone: AV Area by VTI 2.9 cm2 [facility] Work Phone: AV Mean Gradient 1 mmHg [facility] Work Phone: AV Mean Velocity 0.5 m/s [facility] Work Phone: AV Peak Gradient 2 mmHg [facility] Work Phone: AV Peak Velocity 0.7 m/s [facility] Work Phone: AV Velocity Ratio 1 [facility] Work Phone: AV VTI 8 cm [facility] Work Phone: EMILY/BSA Peak Velocity 1.4 cm2/m2 [facility] Work Phone: EMILY/BSA VTI 1.4 cm2/m2 [facility] Work Phone: E/E' Lateral 9 [facility] Work Phone: E/E' Ratio (Averaged) 13.5 [facility] Work Phone: E/E' Septal 18 [facility] Work Phone: EF BP 20 % Abnormal 55 - 100 % [facility] Work Phone: Est. RA Pressure 15 mmHg [facility] Work Phone: Fractional Shortening 2D 9 % 28 - 44 % [facility] Work Phone: Global Longitudinal Strain -5 % [facility] Work Phone: Interpretation and review of laboratory results Abnormal [facility] Work Phone: IVC Diameter 2.3 cm [facility] Work Phone: IVSd 1.1 cm Abnormal 0.6 - 1.0 cm [facility] Work Phone: [phone] LA Diameter 4.7 cm [facility] Work Phone: LA Size Index 2.33 cm/m2 [facility] Work Phone: [phone] LA Volume 2C 116 mL Abnormal 18 - 58 mL [facility] Work Phone: LA Volume 4C 105 mL Abnormal 18 - 58 mL [facility] Work Phone: LA Volume A/L [address] [facility] Work Phone: [phone] LA Volume BP 115 mL Abnormal 18 - 58 mL [facility] Work Phone: LA Volume Index 2C 57 mL/m2 Abnormal 16 - 34 mL/m2 [facility] Work Phone: LA Volume Index 4C 52 mL/m2 Abnormal 16 - 34 mL/m2 [facility] Work Phone: LA Volume Index A/L 61 mL/m2 16 - 34 mL/m2 [place] [facility] Work Phone: LA Volume Index BP 57 ml/m2 Abnormal 16 - 34 ml/m2 [facility] Work Phone: LA/AO Root Ratio 1.68 [facility] Work Phone: [phone] LV E' Lateral Velocity 10 cm/s [place] [facility] Work Phone: [phone] LV E' Septal Velocity 5 cm/s [facility] Work Phone: LV EDV A2C 228 mL [facility] Work Phone: [phone] LV EDV A4C 221 mL [facility] Work Phone: [phone] LV EDV BP 227 mL Abnormal 67 - 155 mL [facility] Work Phone: LV EDV Index A2C 113 mL/m2 [facility] Work Phone: [phone] LV EDV Index A4C 109 mL/m2 [facility] Work Phone: LV EDV Index BP 112 mL/m2 [facility] Work Phone: LV Ejection Fraction A2C 22 % [facility] Work Phone: LV Ejection Fraction A4C 19 % [facility] Work Phone: LV ESV A2C 177 mL [facility] Work Phone: LV ESV A4C 180 mL [facility] Work Phone: LV ESV BP 181 mL Abnormal 22 - 58 mL [facility] Work Phone: LV ESV Index A2C 88 mL/m2 [facility] Work Phone: LV ESV Index A4C 89 mL/m2 [facility] Work Phone: LV ESV Index BP 90 mL/m2 [facility] Work Phone: LV Mass 2D 288.7 g Abnormal 88 - 224 g [facility] Work Phone: LV Mass 2D Index 142.9 g/m2 Abnormal 49 - 115 g/m2 [facility] Work Phone: LV RWT Ratio 0.46 [facility] Work Phone: LVIDd 5.7 cm 4.2 - 5.9 cm [facility] Work Phone: LVIDd Index 2.82 cm/m2 [facility] Work Phone: LVIDs 5.2 cm [facility] Work Phone: LVIDs Index 2.57 cm/m2 [facility] Work Phone: LVOT Area 3.1 cm2 [facility] Work Phone: LVOT Cardiac Output 2.4 liter/minute [facility] Work Phone: LVOT Diameter [address] [facility] Work Phone: LVOT Mean Gradient 1 mmHg [facility] Work Phone: LVOT Peak Gradient 2 mmHg [facility] Work Phone: LVOT Peak Velocity 0.7 m/s [facility] Work Phone: LVOT Stroke Volume Index 12.1 mL/m2 [facility] Work Phone: [phone] LVOT SV 24.5 ml [facility] Work Phone: LVOT VTI 7.8 cm [facility] Work Phone: LVOT:AV VTI Index 0.98 [facility] Work Phone: LVPWd 1.3 cm Abnormal 0.6 - 1.0 cm [facility] Work Phone: MR VTI 114.6 cm [facility] Work Phone: [phone] MV A Velocity 0.33 m/s [facility] Work Phone: [phone] MV E Velocity 0.9 m/s [facility] Work Phone: MV E Wave Deceleration Time 86.1 ms [facility] Work Phone: MV E/A 2.73 [facility] Work Phone: MV Nyquist Velocity 36 cm/s [facility] Work Phone: MV Regurg Velocity PISA 4.3 m/s [facility] Work Phone: Pulmonary Artery EDP 8 mmHg [facility] Work Phone: RA Area 4C 98.5 mL [facility] Work Phone: RA Area 4C 91.2 mL [facility] Work Phone: [phone] RV Basal Dimension 5.4 cm [facility] Work Phone: RV Free Wall Peak S' 10 cm/s [facility] Work Phone: RV Longitudinal Dimension 9.1 cm [facility] Work Phone: [phone] RV Mid Dimension 3.1 cm [facility] Work Phone: RVSP 46 mmHg [facility] Work Phone: Sinotubular Junction 2.5 cm [facility] Work Phone: TAPSE 2 cm 1.7 cm [facility] Work Phone: TR Max Velocity 2.78 m/s Pam Ugarte [place] Work Phone: TR Peak Gradient 31 mmHg Pam hurley Work Phone: [facility] Work Phone: Heart Transthoracicon Left Ventricle: Left ventricle is [...] 06-15-2024 Bilirubin Ql (U) Negative Negative mg/dL [facility] Clarity (U) Clear Clear [facility] Color (U) Colorless Lt. Yellow [facility] Glucose Ql (U) Normal Normal (<70) mg/dL [facility] Hemoglobin Ql (U) Negative Negative mg/dL [facility] Interpretation and review of laboratory results Normal [facility] Ketones (U) [Mass/Vol] Negative Negat dai mg/dL [facility] Leukocyte esterase Test strip Ql (U) Negative Negative Nicky/uL [facility] Nitrite Ql (U) Negative Negative [facility] th pH (U) 5.5 [pH] 5.0 - 8.0 pH [facility] Protein (U) [Mass/Vol] Negative Negat dai mg/dL [facility] Specific gravity (U) [Rel density] 1.007 1.005 - 1.030 [facility] Urobilinogen (U) [Mass/Vol] Normal Normal (0-1) mg/dL [facility] [id number] 06-14-2024 [id number] Normal [facility] BASIC METABOLIC PANELon 05-30 Anion gap [Moles/Vol] 11 mmol/L Normal 3-13 [facility] Comment on above: Performed By: #### L AB18, LAB15 ####Medical Technician Assistant: LESLEE HERNANDEZ ([phone])[facility] (HL)[address] [place] [address] Calcium [Mass/Vol] 7.2 mg/dL Low 8.4-10.2 [facility] Comment on above: Performed By: #### L AB18, LAB15 ####Medical Technician Assistant: LESLEE HERNANDEZ ([phone])[facility] [place] (SBHLAB)[address] Chloride [Moles/Vol] 118 mmol/L High 98-107 [facility] Comment on above: Performed By: #### L AB18, LAB15 ####Medical Technician Assistant: LESLEE HERNANDEZ ([phone])[facility] (SBHLAB)[address] CO2 [Moles/Vol] 15 mmol/L Low 22-29 [facility] Comment on above: Performed By: #### L AB18, LAB15 ####Medical Technician Assistant: LESLEE HERNANDEZ ([phone])[facility] (SBHLAB)[address] Creatinine [Mass/Vol] 1.74 mg/dL High 0.72-1.25 [facility] Comment on above: Performed By: #### L AB18, LAB15 ####Medical Technician Assistant: LESLEE HERNANDEZ ([phone])[facility] (SBHLAB)[address] GLOMERULAR FILTRATION RATE ML/MIN/1.73 SQ M.PREDICTED 48.4 mL/min/1.73m*2 Low >60.0 [facility] Comment on above: Result Comment: Calc ulation based on the Chronic Kidney Disease Epidemiology Collaboration (CKD-EPI) equation refit without adjustment for race Performed By: #### L AB18, LAB15 ####Medical Technician Assistant: LESLEE HERNANDEZ ([phone])[facility] (SBHLAB)[address] Glucose [Mass/Vol] 81 mg/dL Normal 74-100 [facility] Comment on above: Performed By: #### L AB18, LAB15 ####Medical Technician Assistant: LESLEE HERNANDEZ ([phone])[facility] (SBHLAB)[address] Potassium [Moles/Vol] 3.6 mmol/L Normal 3.5-5.1 [facility] Comment on above: Result Comment: Plas ma potassium values may be up to 0.5 mmol/L lower than serum values. Performed By: #### L AB18, LAB15 ####Medical Technician Assistant: LESLEEFIDELIA HERNANDEZ ([phone])[facility] (SBHLAB)[address] Sodium [Moles/Vol] 144 mmol/L Normal 136-145 [facility] Comment on above: Performed By: #### L AB18, LAB15 ####Medical Technician Assistant: LESLEEFIDELIA HERNANDEZ ([phone])[facility] (SBHLAB)[address] Urea nitrogen [Mass/Vol] 32 mg/dL High 8-21 [facility] Comment on above: Performed By: #### L AB18, LAB15 ####Medical Technician Assistant: LESLEE HERNANDEZ ([phone])[facility] (SBHLAB)[address] Basic metabolic 1998 panelOr dered By: Krista Campbell on 06-14-2024 Anion gap [Moles/Vol] 11 mmol/L 3 - 13 mmol/L [facility] Calcium [Mass/Vol] 7.2 mg/dL Low 8.4 - 10. 2 mg/dL [facility] Chloride [Moles/Vol] 118 mmol/L High 98 - 10 7 mmol/L [facility] CO2 [Moles/Vol] 15 mmol/L Low 22 - 29 mmol/L [facility] Creatinine [Mass/Vol] 1.74 mg/dL High 0.72 - 1.25 mg/dL [facility] GFR/1.73 sq M.predicted (S/P/Bld) [Vol rate/Area] 48.4 mL/min Low - PINF [facility] Comment on above: Calculation based on the Chronic Kidney Disease Epidemiology Collaboration (CKD-EPI) equation refit without adjustment for race Glucose [Mass/Vol] 81 mg/dL 74 - 100 mg/dL [facility] Interpretation and review of laboratory results Abnormal [facility] Potassium [Moles/Vol] 3.6 mmol/L 3.5 - 5.1 mmol/L [facility] Comment on above: Plasma potassium heidi ues may be up to 0.5 mmol/L lower than serum values. Sodium [Moles/Vol] 144 mmol/L 136 - 145 mmol/L [facility] Urea nitrogen [Mass/Vol] 32 mg/dL High 8 - 21 mg/dL [facility] CT ABDOMEN PELVIS WO IV CONT RASTon 06-14-2024 CT ABDOMEN PELVIS WO IV CONTRAST Normal [facility] CT Abdomen and Pelvis WO con traston 06-14-2024 1. Small amount of nonspecific free fluid in the dependent pelvis. 2. Cardiomegaly. Report Dictated on Electronically Signed By: Juan Pereira MD Electronically Signed Date/Time: 06/14/2024 10:23 AM [facility] 1980 [id number] Exam Date/Time: 06/14/2024 09:41 Procedure: CT ABDOMEN [...] umbilical hernia. Osseous structures: No osseous abnormalities. [facility] Juan Pereira MD - 06/14/2024 Patient Name: CARLO MEDINA : 1980 [facility]#: [id number] Exam Date/Time: 06/14/2024 09:41 Procedure: CT ABDOMEN [...] Electronically Signed Date/Time: 06/14/2024 10:23 AM EST [facility] Study observation (narrative) [facility] CT Abdomen and Pelvis WO con trastOrdered By: Juan Pereira on 06-14-2024 [facility] Work Phone: Consulton 06-14-2024 Consult Normal [facility] ECG 12-LEADon 06-14-2024 ECG 12-LEAD IMPRESSION: Sinus tachycardia Left atrial enlargement Left ventricular hypertrophy ST elevation secondary to IVCD Electronically Signed On 06-14-2024 02:04:38 EST by Ventura Mcconnell Normal [facility] LIPID PANELon 06-14-2024 Cholesterol [Mass/Vol] 130 mg/dL Normal <200 [facility] Comment on above: Performed By: #### L AB18, LAB15 ####Medical Technician Assistant: LESLEE HERNANDEZ ([phone])[facility] [place] [address] Cholesterol in HDL [Mass/Vol] 16 mg/dL Low >=60 [facility] Comment on above: Performed By: #### L AB18, LAB15 ####Medical Technician Assistant: LESLEE HERNANDEZ ([phone])[facility] ([facility])[address] [place] [address] Cholesterol.total/Chol esterol in HDL [Mass ratio] 8 {ratio} Normal [facility] Comment on above: Result Comment: Ref Range:< 3 Low Risk for CHD3-6 Mod Risk for CHD> 6 High Risk for CHD Performed By: #### L AB18, LAB15 ####Medical Technician Assistant: LESLEE HERNANDEZ ([phone])[facility] (SBHLAB)[address] LOW DENSITY LIPOPROTEIN 100 mg/dL High 0-<100 [facility] Comment on above: Performed By: #### L AB18, LAB15 ####Medical Technician Assistant: LESLEE HERNANDEZ ([phone])[facility])[address] NON-HDL CHOLESTEROL, CALCULATED 114 Normal <130 [facility] Comment on above: Performed By: #### L AB18, LAB15 ####Medical Technician Assistant: LESLEE HERNANDEZ ([phone])[facility]INKey[facility] (SBHLAB)[address] Triglyceride [Mass/Vol] 68 mg/dL Normal <150 [facility] Comment on above: Performed By: #### L AB18, LAB15 ####Medical Technician Assistant: LESLEE HERNANDEZ ([phone])[facility] (SBHLAB)[address] VERY LOW DENSITY LIPOPROTEIN, CALCULATED 14 mg/dL Normal <=30 [facility] Comment on above: Performed By: #### L AB18, LAB15 ####Medical Technician Assistant: LESLEE HERNANDEZ ([phone])[facility] (SBHLAB)[address] Lipid 1996 panelon Cholesterol [Mass/Vol] 130 mg/dL NINF - 200 mg/dL [facility] Cholesterol in HDL [Mass/Vol] 16 mg/dL Low 60 - PINF mg/dL [facility] Cholesterol in LDL [Mass/Vol] 100 mg/dL High 0 - <100 [facility] Cholesterol.total/Chol esterol in HDL [Mass ratio] 8 {ratio} [facility] Comment on above: Ref Range: < 3 Low Risk for CHD 3-6 Mod Risk for CHD > 6 High Risk for CHD Interpretation and review of laboratory results Abnormal [facility] NON-HDL CHOLESTEROL, CALCULATED 114 NINF - 130 [facility] Triglyceride [Mass/Vol] 68 mg/dL NINF - 150 mg/dL [facility] VERY LOW DENSITY LIPOPROTEIN, CALCULATED 14 mg/dL NINF - 30 mg/dL [facility] No Panel Informationon 06-14 Acute occlusive deep [...] Patent, compressible. Peroneal Vein: Acute occlusive thrombus. Manager Publishing Details A forrest scale, color Doppler imaging [...] On 06-14-2024 02:04:38 EST by Ventura Mcconnell [facility] GSOUND Panel InformationOrdered By: Ventura Mcconnell on 06-14-2024 P Arden 69 degrees [facility] Phone: [place] Interval 148 ms [employer] Phone: QRS Arden 31 degrees [facility] Work Phone: QRSD Interval [address] [facility] h Work Phone: QT Interval 402 ms [facility] [employer] Work Phone: QTC Interval 539 ms [facility] [employer] Work Phone: T Wave Arden 4 degrees [facility] Phone: [facility] Work Phone: Progress Noteon 06-14-2024 Progress Note Normal [facility] [employer] [facility] Progress Note Normal [facility] Vital signsOrdered By: Marj Mcconnell on 06-14-2024 Heart rate 108 /min bpm [facility] [employer] Phone: 30on 06-13-2024 30 Normal [facility] BASIC METABOLIC PANELon 05-30 Anion gap [Moles/Vol] 10 mmol/L Normal 3-13 [facility] Comment on above: Performed By: #### Pdero ORTEZ, [id number], [id number] ####Medical Technician Assistant: LESLEE HERNANDEZ ([phone])[facility] (SBHLAB)[address] Calcium [Mass/Vol] 8.6 mg/dL Normal 8.4-10.2 [facility] Comment on above: Performed By: #### Pedro AB15, [id number], [id number] ####Medical Technician Assistant: LESLEE HERNANDEZ ([phone])[facility] (SBHLAB)[address] [place] [address] [place] Chloride [Moles/Vol] 114 mmol/L High 98-107 [facility] Comment on above: Performed By: #### Pedro AB15, [id number], [id number] ####Medical Technician Assistant: LESLEE HERNANDEZ ([phone])[facility] (SBHLAB)[address] [place] [address] [place] CO2 [Moles/Vol] 18 mmol/L Low 22-29 [facility] Comment on above: Performed By: #### Pedro AB15, [id number], [id number] ####Medical Technician Assistant: LESLEE HERNANDEZ ([phone])[facility]IN[facility] [place] (SBHLAB)[address] Creatinine [Mass/Vol] 2.03 mg/dL High 0.72-1.25 [facility] Comment on above: Performed By: #### L AB15, [id number], [id number] ####Medical Technician Assistant: LESLEE HERNANDEZ ([phone])[facility]IN[facility] (SBHLAB)[address] GLOMERULAR FILTRATION RATE ML/MIN/1.73 SQ M.PREDICTED 40.2 mL/min/1.73m*2 Low >60.0 [facility] Comment on above: Result Comment: Calc ulation based on the Chronic Kidney Disease Epidemiology Collaboration (CKD-EPI) equation refit without adjustment for race Performed By: #### L AB15, [id number], [id number] ####Medical Technician Assistant: LESLEE HERNANDEZ ([phone])[facility] [place] (SBHLAB)[address] Glucose [Mass/Vol] 104 mg/dL High 74-100 [facility] Comment on above: Performed By: #### Pedro AB15, [id number], [id number] ####Medical Technician Assistant: LESLEE HERNANDEZ ([phone])[facility] [place] (SBHLAB)[address] Potassium [Moles/Vol] 4.9 mmol/L Normal 3.5-5.1 [facility] Comment on above: Result Comment: TCPo tential interference from hemolysis Performed By: #### L AB15, [id number], [id number] ####Medical Technician Assistant: LESLEE HERNANDEZ ([phone])[facility] (SBHLAB)[address] [place] [address] [place] Sodium [Moles/Vol] 142 mmol/L Normal 136-145 [facility] Comment on above: Performed By: #### L AB15, [id number], [id number] ####Medical Technician Assistant: LESLEE HERNANDEZ ([phone])[facility] JENNY (SBHLAB)[address] Urea nitrogen [Mass/Vol] 34 mg/dL High 8-21 [facility] Comment on above: Performed By: #### L AB15, [id number], [id number] ####Medical Technician Assistant: LESLEE HERNANDEZ ([phone])[facility] (SBHLAB)[address] Basic metabolic 1998 panelon 06-13-2024 Anion gap [Moles/Vol] 10 mmol/L 3 - 13 mmol/L [facility] Calcium [Mass/Vol] 8.6 mg/dL 8.4 - 10. 2 mg/dL [facility] Chloride [Moles/Vol] 114 mmol/L High 98 - 10 7 mmol/L [facility] CO2 [Moles/Vol] 18 mmol/L Low 22 - 29 mmol/L [facility] Creatinine [Mass/Vol] 2.03 mg/dL High 0.72 - 1.25 mg/dL [facility] GFR/1.73 sq M.predicted (S/P/Bld) [Vol rate/Area] 40.2 mL/min Low - PINF [facility] Comment on above: Calculation based on the Chronic Kidney Disease Epidemiology Collaboration (CKD-EPI) equation refit without adjustment for race Glucose [Mass/Vol] 104 mg/dL High 74 - 100 mg/dL [facility] Interpretation and review of laboratory results Abnormal [facility] Potassium [Moles/Vol] 4.9 mmol/L 3.5 - 5.1 mmol/L [facility] Comment on above: TC Potential interference from hemolysis Sodium [Moles/Vol] 142 mmol/L 136 - 145 mmol/L [facility] Urea nitrogen [Mass/Vol] 34 mg/dL High 8 - 21 mg/dL [facility] CBC W Auto Differential pane l (Bld)Ordered By: Maritza Knowles on 06-13-2024 Basophils (Bld) [#/Vol] 0 10*3/uL 0.0 - 0.2 10*3/uL [facility] Basophils/100 WBC (Bld) 0.2 % 0.0 - 2.0 % [facility] Eosinophils (Bld) [#/Vol] 0 10*3/uL 0.0 - 0.5 10*3/uL [facility] Eosinophils/100 WBC (Bld) 0.1 % 0.0 - 6.0 % [facility] Erythrocyte distribution width (RBC) [Ratio] 14.6 % 11.5 - 15.0 % [facility] Hematocrit (Bld) [Volume fraction] 52.1 % High 40.0 - 52.0 % [facility] Hemoglobin (Bld) [Mass/Vol] 16.4 g/dL 13.0 - 18.0 g/dL [facility] Immature granulocytes (Bld) [#/Vol] 0 10*3/uL NINF - 0.1 10*3/uL [facility] Immature granulocytes/100 WBC (Bld) 0.2 % 0.0 - 2.0 % [facility] Interpretation and review of laboratory results Abnormal [facility] Lymphocytes (Bld) [#/Vol] 1.7 10*3/uL 1.0 - 4.3 10*3/uL [facility] Lymphocytes/100 WBC (Bld) 20 % 15.0 - 45.0 % [facility] MCH (RBC) [Entitic mass] 32.5 pg 26.0 - 34.0 pg [facility] MCHC (RBC) [Mass/Vol] 31.5 % 30.5 - 36.0 % [facility] MCV (RBC) [Entitic vol] 103.2 fL High 77.0 - 99.0 fL [facility] Monocytes (Bld) [#/Vol] 0.6 10*3/uL 0.0 - 0.9 10*3/uL [facility] Monocytes/100 WBC (Bld) 7.4 % 5.0 - 13.0 % [facility] Neutrophils (Bld) [#/Vol] 6.2 10*3/uL 1.8 - 7.5 10*3/uL [facility] Neutrophils/100 WBC (Bld) 72.1 % 38.0 - 82.0 % [facility] Nucleated RBC/100 WBC (Bld) [Ratio] 0 % [facility] Platelet mean volume (Bld) [Entitic vol] 10.7 fL 9.0 - 12.7 fL [facility] Platelets (Bld) [#/Vol] 217 10*3/uL 140 - 440 10*3/uL [facility] RBC (Bld) [#/Vol] 5.05 10*6/uL 4.40 - 5.9 0 10*6/uL [facility] WBC (Bld) [#/Vol] 8.7 10*3/uL 3.6 - 10.7 10*3/uL [facility] CBC WITH AUTO DIFFERENTIALon 06-13-2024 Basophils (Bld) [#/Vol] 0.0 10*3/uL Normal 0.0-0.2 [facility] Comment on above: Performed By: #### L [id number] ####Medical Technician Assistant: LESLEE HERNANDEZ ([phone])[facility] [place] (SBHLAB)[address] Basophils/100 WBC (Bld) 0.2 % Normal 0.0-2.0 [facility] Comment on above: Performed By: #### L [id number] ####Medical Technician Assistant: LESLEE HERNANDEZ ([phone])[facility] [place] (SBHLAB)[address] [place] [address] [place] Eosinophils (Bld) [#/Vol] 0.0 10*3/uL Normal 0.0-0.5 [facility] Comment on above: Performed By: #### L [id number] ####Medical Technician Assistant: LESLEE HERNANDEZ ([phone])[facility] [place] (SBHLAB)[address] Eosinophils/100 WBC (Bld) 0.1 % Normal 0.0-6.0 [facility] Comment on above: Performed By: #### L [id number] ####Medical Technician Assistant: LESLEE HERNANDEZ ([phone])[facility] [place] (SBHLAB)[address] Erythrocyte distribution width (RBC) [Ratio] 14.6 % Normal 11.5-15.0 [facility] Comment on above: Performed By: #### L [id number] ####Medical Technician Assistant: LESLEE HERNANDEZ ([phone])[facility] [place] (SBHLAB)[address] Hematocrit (Bld) [Volume fraction] 52.1 % High 40.0-52.0 [facility] Comment on above: Performed By: #### L [id number] ####Medical Technician Assistant: LESLEE HERNANDEZ ([phone])[facility] [place] (SBAB)[address] Hemoglobin (Bld) [Mass/Vol] 16.4 g/dL Normal 13.0-18.0 [facility] Comment on above: Performed By: #### L [id number] ####Medical Technician Assistant: LESLEE HERNANDEZ ([phone])[facility] ([facility] IMMATURE GRANS % 0.2 % Normal 0.0-2.0 [facility] Comment on above: Performed By: #### L [id number] ####Medical Technician Assistant: LESLEE HERNANDEZ ([phone])[facility] ([facility])[address] [place] [address] IMMATURE GRANS ABSOLUTE 0.0 10*3/uL Normal <0.1 [facility] Comment on above: Performed By: #### L [id number] ####Medical Technician Assistant: LESLEE HERNANDEZ ([phone])[facility])[address] [place] [address] Lymphocytes (Bld) [#/Vol] 1.7 10*3/uL Normal 1.0-4.3 [facility] Comment on above: Performed By: #### L [id number] ####Medical Technician Assistant: LESLEE HERNANDEZ ([phone])[facility] ([facility])[address] [place] [address] Lymphocytes/100 WBC (Bld) 20.0 % Normal 15.0-45.0 [facility] Comment on above: Performed By: #### L [id number] ####Medical Technician Assistant: LESLEE HERNANDEZ ([phone])[facility])[address] [place] [address] MCH (RBC) [Entitic mass] 32.5 pg Normal 26.0-34.0 [facility] Comment on above: Performed By: #### L [id number] ####Medical Technician Assistant: LESLEE HERNANDEZ ([phone])[facility] [place] (SBHLAB)[address] MCHC 31.5 % Normal 30.5-36.0 [facility] Comment on above: Performed By: #### L [id number] ####Medical Technician Assistant: LESLEE HERNANDEZ ([phone])[facility] [place] (SBHLAB)[address] MCV (RBC) [Entitic vol] 103.2 fL High 77.0-99.0 [facility] Comment on above: Performed By: #### L [id number] ####Medical Technician Assistant: LESLEE TURKTYRONE ([phone])[facility] [place] (SBHLAB)[address] Monocytes (Bld) [#/Vol] 0.6 10*3/uL Normal 0.0-0.9 [facility] Comment on above: Performed By: #### L [id number] ####Medical Technician Assistant: LESLEE HERNANDEZ ([phone])[facility] [place] (SBHLAB)[address] Monocytes/100 WBC (Bld) 7.4 % Normal 5.0-13.0 [facility] Comment on above: Performed By: #### L [id number] ####Medical Technician Assistant: LESLEE HERNANDEZ ([phone])[facility] [place] (SBHLAB)[address] NEUTROPHILS ABSOLUTE 6.2 10*3/uL Normal 1.8-7.5 [facility] Comment on above: Performed By: #### L [id number] ####Medical Technician Assistant: LESLEE TURKTYRONE ([phone])[facility] [place] (SBHLAB)[address] Neutrophils/100 WBC (Bld) 72.1 % Normal 38.0-82.0 [facility] Comment on above: Performed By: #### L [id number] ####Medical Technician Assistant: LESLEE HERNANDEZ ([phone])[facility]IN[facility] [place] (SBHLAB)[address] [place] [address] NRBC 0.0 /100 WBCs Normal 0.0-2.0 [facility] Comment on above: Performed By: #### L [id number] ####Medical Technician Assistant: LESLEE HERNANDEZ ([phone])[facility] (SBHLAB)[address] Platelet mean volume (Bld) [Entitic vol] 10.7 fL Normal 9.0-12.7 [facility] Comment on above: Performed By: #### L [id number] ####Medical Technician Assistant: LESLEE HERNANDEZ ([phone])[facility] [place] (SBHLAB)[address] [place] [address] Platelets (Bld) [#/Vol] 217 10*3/uL Normal 140-440 [facility] Comment on above: Performed By: #### L [id number] ####Medical Technician Assistant: LESLEE HERNANDEZ ([phone])[facility]IN[facility] [place] (SBHLAB)[address] [place] [address] RBC (Bld) [#/Vol] 5.05 10*6/uL Normal 4.40-5.90 [facility] Comment on above: Performed By: #### L [id number] ####Medical Technician Assistant: LESLEE HERNANDEZ ([phone])[facility] (SBHLAB)[address] [place] [address] WBC (Bld) [#/Vol] 8.7 10*3/uL Normal 3.6-10.7 [facility] Comment on above: Performed By: #### L [id number] ####Medical Technician Assistant: LESLEE HERNANDEZ ([phone])[facility] [place] (SBHLAB)[address] COMPREHENSIVE METABOLIC PANE Ming 12-15-2024 Albumin [Mass/Vol] 3.1 g/dL Low 3.5-5.0 [facility] Comment on above: Performed By: #### L AB129, [id number], LAB17, [id number], LAB99 ####Medical Technician Assistant: LESLEE HERNANDEZ ([phone])[facility] [place] (SBHLAB)[address] ALP [Catalytic activity/Vol] 129 U/L Normal 40-150 [facility] Comment on above: Performed By: #### L AB129, [id number], LAB17, [id number], LAB99 ####Medical Technician Assistant: LESLEE HERNANDEZ ([phone])[facility] (SBHLAB)[address] ALT [Catalytic activity/Vol] 121 U/L High <40 [facility] Comment on above: Performed By: #### L AB129, [id number], LAB17, [id number], LAB99 ####Medical Technician Assistant: LESLEE HERNANDEZ ([phone])[facility] (SBHLAB)[address] Anion gap [Moles/Vol] 12 mmol/L Normal 3-13 [facility] Comment on above: Performed By: #### L AB129, [id number], LAB17, [id number], LAB99 ####Medical Technician Assistant: LESLEE HERNANDEZ ([phone])[facility] (SBHLAB)[address] AST [Catalytic activity/Vol] 47 U/L High <34 [facility] Comment on above: Performed By: #### L AB129, [id number], LAB17, GHC905, LAB99 ####Medical Technician Assistant: LESLEE HERNANDEZ ([phone])[facility] (SBHLAB)[address] Bilirubin [Mass/Vol] 1.5 mg/dL High <1.2 [facility] Comment on above: Performed By: #### L AB129, [id number], LAB17, [id number], LAB99 ####Medical Technician Assistant: LESLEE HERNANDEZ ([phone])[facility] [place] (SBHLAB)[address] Calcium [Mass/Vol] 8.7 mg/dL Normal 8.4-10.2 [facility] Comment on above: Performed By: #### L AB129, [id number], LAB17, [id number], LAB99 ####Medical Technician Assistant: LESLEE HERNANDEZ ([phone])[facility]IN[facility] (SBHLAB)[address] Chloride [Moles/Vol] 113 mmol/L High 98-107 [facility] Comment on above: Performed By: #### L AB129, [id number], LAB17, [id number], LAB99 ####Medical Technician Assistant: LESLEE HERNANDEZ ([phone])[facility]IN[facility] (SBHLAB)[address] CO2 [Moles/Vol] 17 mmol/L Low 22-29 [facility] Comment on above: Performed By: #### L AB129, [id number], LAB17, [id number], LAB99 ####Medical Technician Assistant: LESLEE HERNANDEZ ([phone])[facility]INKey[facility] (SBHLAB)[address] Creatinine [Mass/Vol] 2.32 mg/dL High 0.72-1.25 [facility] Comment on above: Performed By: #### L AB129, [id number], LAB17, [id number], LAB99 ####Medical Technician Assistant: LESLEE HERNANDEZ ([phone])[facility] (SBHLAB)[address] [place] [address] [place] GLOMERULAR FILTRATION RATE ML/MIN/1.73 SQ M.PREDICTED 34.2 mL/min/1.73m*2 Low >60.0 [facility] Comment on above: Result Comment: Calc ulation based on the Chronic Kidney Disease Epidemiology Collaboration (CKD-EPI) equation refit without adjustment for race Performed By: #### L AB129, [id number], LAB17, [id number], LAB99 ####Medical Technician Assistant: LESLEE HERNANDEZ ([phone])[facility] (SBHLAB)[address] [place] [address] [place] Glucose [Mass/Vol] 115 mg/dL High 74-100 [facility] Comment on above: Performed By: #### L AB129, [id number], LAB17, [id number], LAB99 ####Medical Technician Assistant: LESLEE TURKTYRONE ([phone])[facility] (SBHLAB)[address] Potassium [Moles/Vol] 5.7 mmol/L High 3.5-5.1 [facility] Comment on above: Result Comment: [facility] potassium values may be up to 0.5 mmol/L lower than serum values. Performed By: #### L AB129, [id number], LAB17, [id number], LAB99 ####Medical Technician Assistant: LESLEE TORRESCER ([phone])[facility] (SBHLAB)[address] Protein [Mass/Vol] 6.0 g/dL Low 6.4-8.3 [facility] Comment on above: Performed By: #### L AB129, [id number], LAB17, [id number], LAB99 ####Medical Technician Assistant: LESLEE HERNANDEZ ([id number])[facility] (SBHLAB)[address] [place] [address] [place] Sodium [Moles/Vol] 142 mmol/L Normal 136-145 [facility] Comment on above: Performed By: #### L AB129, [id number], LAB17, [id number], LAB99 ####Medical Technician Assistant: LESLEE HERNANDEZ ([phone])[facility] (HLAB)[address] [place] [address] [place] Urea nitrogen [Mass/Vol] 36 mg/dL High 8-21 [facility] Comment on above: Performed By: #### L AB129, [id number], LAB17, [id number], LAB99 ####Medical Technician Assistant: LESLEE HERNANDEZ ([phone])[facility] JENNY (SBHLAB)[address] Comprehensive metabolic 1998 panelon 06-13-2024 Albumin [Mass/Vol] 3.1 g/dL Low 3.5 - 5.0 g/dL [facility] ALP [Catalytic activity/Vol] 129 U/L 40 - 150 U/L [facility] ALT [Catalytic activity/Vol] 121 U/L High NINF - 40 U/L [facility] Anion gap [Moles/Vol] 12 mmol/L 3 - 13 mmol/L [facility] AST [Catalytic activity/Vol] 47 U/L High NINF - 34 U/L [facility] Bilirubin [Mass/Vol] 1.5 mg/dL High NINF - 1.2 mg/dL [facility] Calcium [Mass/Vol] 8.7 mg/dL 8.4 - 10. 2 mg/dL [facility] Chloride [Moles/Vol] 113 mmol/L High 98 - 10 7 mmol/L [facility] CO2 [Moles/Vol] 17 mmol/L Low 22 - 29 mmol/L [facility] Creatinine [Mass/Vol] 2.32 mg/dL High 0.72 - 1.25 mg/dL [facility] GFR/1.73 sq M.predicted (S/P/Bld) [Vol rate/Area] 34.2 mL/min Low - PINF [facility] Comment on above: Calculation based on the Chronic Kidney Disease Epidemiology Collaboration (CKD-EPI) equation refit without adjustment for race Glucose [Mass/Vol] 115 mg/dL High 74 - 100 mg/dL [facility] Interpretation and review of laboratory results Abnormal [facility] Potassium [Moles/Vol] 5.7 mmol/L High 3.5 - 5.1 mmol/L [facility] Comment on above: Plasma potassium heidi ues may be up to 0.5 mmol/L lower than serum values. Protein [Mass/Vol] 6 g/dL Low 6.4 - 8.3 g/dL [facility] Sodium [Moles/Vol] 142 mmol/L 136 - 145 mmol/L [facility] Urea nitrogen [Mass/Vol] 36 mg/dL High 8 - 21 mg/dL [facility] ED Nursing Noteon 06-13-2024 ED Nursing Note Pt presents for abdominal pain starting yesterday. States he vomited earlier today. Denies diarrhea. Also having loss of appetite. Denies urinary symptoms. Also having swelling in BLE x2 weeks. Hx CHF. +fatigue Normal [facility] ED Provider Noteon ED Provider Note Normal [facility] HIGH SENSITIVITY TROPONIN, S ERIAL BASELINEon 06-13-2024 TROPONIN HIGH SENSITIVITY BASELINE 50 ng/L High <=35 [facility] Comment on above: Performed By: #### L AB129, [id number], LAB17, [id number], LAB99 ####Medical Technician Assistant: LESLEE HERNANDEZ ([phone])[facility] ([facility])[address] [place] [address] [place] HIGH SENSITIVITY TROPONIN, S ERIAL, SECOND TESTon 06-13-2024 TROPONIN HS DELTA, BASELINE TO SECOND 3 ng/L Normal <=2 [facility] Comment on above: Result Comment: This specimen [...] clinical guidance. Performed By: #### L AB103, [id number] ####Medical Technician Assistant: LESLEE HERNANDEZ ([phone])[facility] ([facility])[address] [place] [address] [place] TROPONIN HS, SERIAL REFLEX, TEST TWO 53 ng/L High <=35 [facility] Comment on above: Performed By: #### L AB103, [id number] ####Medical Technician Assistant: LESLEE HERNANDEZ ([phone])[facility] ([facility])[address] HIGH SENSITIVITY TROPONIN, S ERIAL, THIRD TESTon 06-13-2024 TROPONIN HS DELTA, SECOND TO THIRD -4 ng/L Normal <=2 [facility] Comment on above: Result Comment: This specimen [...] Inpatient algorithms. Performed By: #### L AB15, [id number], [id number] ####Medical Technician Assistant: LESLEE HERNANDEZ ([phone])[facility] [place] [address] TROPONIN HS, SERIAL REFLEX, TEST THREE 49 ng/L High <=35 [facility] Comment on above: Performed By: #### L AB15, [id number], [id number] ####Medical Technician Assistant: LESLEE HERNANDEZ ([phone])[facility] ([facility])[address] [place] [address] LIPASEon 06-13-2024 Lipase [Catalytic activity/Vol] 21 U/L Normal <55 [facility] Comment on above: Performed By: #### L AB129, [id number], LAB17, [id number], LAB99 ####Medical Technician Assistant: LESLEE HERNANDEZ ([phone])[facility] ([facility])[address] [place] [address] Laboratory - Chemistry and C hemistry - challengeon 06-13-2024 Magnesium [Mass/Vol] 2 mg/dL 1.6 - 2 .6 mg/dL [facility] Magnesium [Mass/Vol] 2.6 mg/dL 1.6 - 2 .6 mg/dL [facility] Comment on above: TC Potential interference from hemolysis TSH Qn 2.79 m[IU]/L [facility] Lipase [Catalytic activity/Vol] 21 U/L NINF - 55 U/L [facility] Lipase [Catalytic activity/V ol]on 06-13-2024 Interpretation and review of laboratory results Normal [facility] MAGNESIUMon 06-13-2024 Magnesium [Mass/Vol] 2.0 mg/dL Normal 1.6-2.6 [facility] Comment on above: Result Comment: ALEJANDRO Aleman COMMENTS:Higher values can be expected in females during menses. Performed By: #### L AB15, [id number], [id number] ####Medical Technician Assistant: LESLEE MARY ([phone])[facility] Magnesium [Mass/Vol] 2.6 mg/dL Normal 1.6-2.6 [facility] Comment on above: Result Comment: TCPo tential interference from hemolysisORDER COMMENTS:Higher values can be expected in females during menses. Performed By: #### L AB103, [id number] ####Medical Technician Assistant: LESLEE MARY ([phone])[facility] Magnesium [Mass/Vol]on 06-13 Interpretation and review of laboratory results Normal [facility] Higher values can be expected in females during menses. [facility] Interpretation and review of laboratory results Normal [facility] Higher values can be expected in females during menses. [facility] NT PRO BNPon 06-13-2024 Natriuretic peptide B (Bld) [Mass/Vol] 33252 pg/mL High <125 [facility] Comment on above: Performed By: #### L AB129, [id number], LAB17, [id number], LAB99 ####Medical Technician Assistant: LESLEE HERNANDEZ ([id number])[facility] [place] [address] Natriuretic peptide B [Mass/ Vol]on 06-13-2024 Interpretation and review of laboratory results Abnormal [facility] Natriuretic peptide B (Bld) [Mass/Vol] 93043 pg/mL High NINF - 125 pg/mL [facility] No Panel Informationon 06-13 Interpretation and review of laboratory results Abnormal [facility] Troponin HS Delta, Second to Third -4 ng/L NINF - 2 ng/L [facility] Comment on above: This specimen was [...] 49 ng/L High NINF - 35 ng/L [facility] Interpretation and review of laboratory results Abnormal [facility] Troponin HS Delta, Baseline to Second 3 ng/L NINF - 2 ng/L [facility] Comment on above: This specimen was [...] 53 ng/L High NINF - 35 ng/L [facility] Interpretation and review of laboratory results Abnormal [facility] Troponin HS, Serial Baseline 50 ng/L High NINF - 35 ng/L [facility] THYROID STIMULATING HORMONEo n 06-13-2024 THYROID STIMULATING HORMONE 2.79 uIU/mL Normal 0.35-4.94 [facility] Comment on above: Performed By: #### L AB129, [id number], LAB17, [id number], LAB99 ####Medical Technician Assistant: LESLEE HERNANDEZ ([phone])[facility] ([facility])[address] [place] [address] TSH Qnon 06-13-2024 Interpretation and review of laboratory results Normal [facility] XR Chest Single viewon 06-13 Cardiomegaly with pulmonary vascular congestion. No focal consolidation identified. Report Dictated on Electronically Signed By: Giovani Santacruz MD Electronically Signed Date/Time: 06/13/2024 2:56 PM [facility] Patient Name: CARLO MEDINA : 1980 [...] change of the thoracic spine is noted. [facility] Giovani Santacruz MD - 06/13/2024 [facility] 1980 [id number] Exam Date/Time: 06/13/2024 14:37 Procedure: XR CHEST [...] Electronically Signed Date/Time: 06/13/2024 2:56 PM EST [facility] Study observation (narrative) [facility] X[facility] Chest Single viewOrdered By: Giovani Santacruz on 06-13-2024 [facility] Work Phone: 36on 06-10-2024 36 Normal [facility] 36 Pt called in stating he's been having stomach pains on and off yesterday and wants to know what he should do. He also states he is still having swelling in his feet and ankles. Normal [facility] 29on 06-08-2024 29 Addended by: RADHA HERNANDEZ on: 06/08/2024 12:19 PM Modules accepted: Orders Normal [facility] BASIC METABOLIC PANELon 12 Anion gap [Moles/Vol] 7 mmol/L Normal 3-13 [facility] Comment on above: Performed By: #### L AB15, LAB20 ####Medical Technician Assistant: NICOLE BOWERS ([phone])[facility] (SWRLAB)[address] Calcium [Mass/Vol] 9.2 mg/dL Normal 8.4-10.2 [facility] Comment on above: Performed By: #### L AB15, LAB20 ####Medical Technician Assistant: NICOLE BOWERS ([phone])[facility]INKeyon RODRIGESKAMALJIT RITTMAN (SWRLAB)[address] [place] [address] [place] Chloride [Moles/Vol] 114 mmol/L High 98-107 [facility] Comment on above: Performed By: #### L AB15, LAB20 ####Medical Technician Assistant: NICOLE BOWERS ([phone])[facility] RODRIGESKAMALJIT RITTMAN (SWRLAB)[address] CO2 [Moles/Vol] 23 mmol/L Normal 22-29 [facility] Comment on above: Performed By: #### L AB15, LAB20 ####Medical Technician Assistant: NICOLE BOWERS ([phone])[facility] [place] (SWRLAB)[address] Creatinine [Mass/Vol] 2.03 mg/dL High 0.72-1.25 [facility] Comment on above: Performed By: #### L AB15, LAB20 ####Medical Technician Assistant: NICOLE BOWERS ([phone])[facility] (SWRLAB)[address] GLOMERULAR FILTRATION RATE ML/MIN/1.73 SQ M.PREDICTED 40.2 mL/min/1.73m*2 Low >60.0 [facility] Comment on above: Result Comment: Calc ulation based on the Chronic Kidney Disease Epidemiology Collaboration (CKD-EPI) equation refit without adjustment for race Performed By: #### L AB15, LAB20 ####Medical Technician Assistant: NICOLE BOWERS ([phone])[facility] (SWRLAB)[address] Glucose [Mass/Vol] 123 mg/dL High 74-100 [facility] Comment on above: Performed By: #### L AB15, LAB20 ####Medical Technician Assistant: NICOLE BOWERS ([phone])[facility] (SWRLAB)[address] [place] [address] Potassium [Moles/Vol] 5.5 mmol/L High 3.5-5.1 [facility] Comment on above: Result Comment: [facility] potassium values may be up to 0.5 mmol/L lower than serum values. Performed By: #### L AB15, LAB20 ####Medical Technician Assistant: NICOLE BOWERS ([phone])[facility]IN[facility] (SWRLAB)[address] [place] [address] Sodium [Moles/Vol] 144 mmol/L Normal 136-145 [facility] Comment on above: Performed By: #### L AB15, LAB20 ####Medical Technician Assistant: NICOLE BOWERS ([phone])[facility] (SWRLAB)[address] [place] [address] Urea nitrogen [Mass/Vol] 35 mg/dL High 8-21 [facility] Comment on above: Performed By: #### L AB15, LAB20 ####Medical Technician Assistant: NICOLE BOWERS ([phone])[facility] [place] (SWRLAB)[address] Basic metabolic 1998 panelon 06-08-2024 Anion gap [Moles/Vol] 7 mmol/L 3 - 13 mmol/L [facility] Calcium [Mass/Vol] 9.2 mg/dL 8.4 - 10. 2 mg/dL [facility] Chloride [Moles/Vol] 114 mmol/L High 98 - 10 7 mmol/L [facility] CO2 [Moles/Vol] 23 mmol/L 22 - 29 mmol/L [facility] Creatinine [Mass/Vol] 2.03 mg/dL High 0.72 - 1.25 mg/dL [facility] GFR/1.73 sq M.predicted (S/P/Bld) [Vol rate/Area] 40.2 mL/min Low - PINF [facility] Comment on above: Calculation based on the Chronic Kidney Disease Epidemiology Collaboration (CKD-EPI) equation refit without adjustment for race Glucose [Mass/Vol] 123 mg/dL High 74 - 100 mg/dL [facility] Potassium [Moles/Vol] 5.5 mmol/L High 3.5 - 5.1 mmol/L [facility] Comment on above: Plasma potassium heidi ues may be up to 0.5 mmol/L lower than serum values. Sodium [Moles/Vol] 144 mmol/L 136 - 145 mmol/L [facility] Urea nitrogen [Mass/Vol] 35 mg/dL High 8 - 21 mg/dL [facility] HEPATIC FUNCTION PANELon Albumin [Mass/Vol] 3.4 g/dL Low 3.5-5.0 [facility] Comment on above: Performed By: #### L AB15, LAB20 ####Medical Technician Assistant: NICOLE BOWERS ([phone])[facility] KAMALJIT RITTMAN (SWRLAB)[address] [place] [address] [place] ALP [Catalytic activity/Vol] 128 U/L Normal 40-150 [facility] Comment on above: Performed By: #### L AB15, LAB20 ####Medical Technician Assistant: NICOLE BOWERS ([phone])[facility] KAMALJIT RITTMAN (SWRLAB)[address] [place] [address] [place] ALT [Catalytic activity/Vol] 146 U/L High <40 [facility] Comment on above: Performed By: #### L AB15, LAB20 ####Medical Technician Assistant: NICOLE BOWERS ([phone])[facility] KAMALJIT RITTMAN (SWRLAB)[address] AST [Catalytic activity/Vol] 51 U/L High <34 [facility] Comment on above: Performed By: #### L AB15, LAB20 ####Medical Technician Assistant: NICOLE BOWERS ([phone])[facility]Key[facility] RODRIGESKAMALJIT RITTMAN (SWRLAB)[address] Bilirubin [Mass/Vol] 1.7 mg/dL High <1.2 [facility] Comment on above: Performed By: #### L AB15, LAB20 ####Medical Technician Assistant: NICOLE BOWERS ([phone])[facility]ITALKAMALJIT [facility] (SWRLAB)[address] [place] [address] Bilirubin.indirect [Mass/Vol] 0.7 mg/dL High <0.5 [facility] Comment on above: Performed By: #### L AB15, LAB20 ####Medical Technician Assistant: NICOLE BOWERS ([phone])[facility] (SWRLAB)[address] [place] [address] Protein [Mass/Vol] 6.2 g/dL Low 6.4-8.3 [facility] Comment on above: Result Comment: Seru m protein values are higher than plasma values. Samples from recumbent persons are lower by up to 0.5 g/dL as compared to ambulatory persons. After 60 years values are lower by up to 0.2 g/dL. Performed By: #### L AB15, LAB20 ####Medical Technician Assistant: NICOLE BOWERS ([phone])[facility] KAMALJIT FLOREZTMAN (SWRLAB)[address] [place] [address] Hepatic function 2000 panelo n 06-08-2024 Albumin [Mass/Vol] 3.4 g/dL Low 3.5 - 5.0 g/dL [facility] ALP [Catalytic activity/Vol] 128 U/L 40 - 150 U/L [facility] ALT [Catalytic activity/Vol] 146 U/L High NINF - 40 U/L [facility] AST [Catalytic activity/Vol] 51 U/L High NINF - 34 U/L [facility] Bilirubin [Mass/Vol] 1.7 mg/dL High [facility] - 1.2 mg/dL [facility] Bilirubin.conjugated [Mass/Vol] 0.7 mg/dL High [facility] - 0.5 mg/dL [facility] Protein [Mass/Vol] 6.2 g/dL Low 6.4 - 8.3 g/dL [facility] Comment on above: Serum protein values are higher than plasma values. Samples from recumbent persons are lower by up to 0.5 g/dL as compared to ambulatory persons. After 60 years values are lower by up to 0.2 g/dL. No Panel Informationon 06-08 Interpretation and review of laboratory results Abnormal [facility] Progress Noteon 06-08-2024 Progress Note Normal [facility] 36on 06-07-2024 36 Patient unable to pa y the 50% at time of appt due to declined hcap and no health insurance. [facility] 36on 06-04-2024 36 Spoke with the patient and he does not have health insurance nor does he qualify for medicaid or hospital judie per his girlfriend. He has a follow-up appt with cardio on 2023. I did give them the phone number for Teri Santos. [facility] 36 Please contact patient to schedule. Normal [facility] 36on 06-03-2024 36 [facility] 36 S: Patient admitted to: [facility] 05/28/24 B: Discharged on : 06/01/24 A: Hospital follow up call initiated to discuss any medication changes, follow up appointments and discharge instructions: Metabolic acidosis R: No contact x 1 at : [phone] [facility] ED Nursing Noteon 06-03-2024 ED Nursing Note This RN asked if pt wanted to come back into triage to have lucrecia wrap placed. Significant other said, I'll put it on. Pt and significant other left. Normal [facility] ED Nursing Note Pt presents to ED fo r c/o Bilateral leg swelling since yesterday and was recently diagnosed and admitted for CHF and stage 3 kidney disease Normal [facility] ED Provider Noteon ED Provider Note Normal [facility] 36on 06-02-2024 36 Normal [facility] [id number] 06-01-2024 [id number] Labs drawn and given to More Evans at pts bedside Normal [facility] CBC W Auto Differential pane l (Bld)on 06-01-2024 Basophils (Bld) [#/Vol] 0 10*3/uL 0.0 - 0.2 10*3/uL [facility] Basophils/100 WBC (Bld) 0.1 % 0.0 - 2.0 % [facility] Eosinophils (Bld) [#/Vol] 0 10*3/uL 0.0 - 0.5 10*3/uL [facility] Eosinophils/100 WBC (Bld) 0.3 % 0.0 - 6.0 % [facility] Erythrocyte distribution width (RBC) [Ratio] 14.1 % 11.5 - 15.0 % [facility] Hematocrit (Bld) [Volume fraction] 46.3 % 40.0 - 52.0 % [facility] Hemoglobin (Bld) [Mass/Vol] 14.8 g/dL 13.0 - 18.0 g/dL [facility] Immature granulocytes (Bld) [#/Vol] 0 10*3/uL NINF - 0.1 10*3/uL [facility] Immature granulocytes/100 WBC (Bld) 0.3 % 0.0 - 2.0 % [facility] Interpretation and review of laboratory results Abnormal [facility] Lymphocytes (Bld) [#/Vol] 1.9 10*3/uL 1.0 - 4.3 10*3/uL [facility] Lymphocytes/100 WBC (Bld) 28.7 % 15.0 - 45.0 % [facility] MCH (RBC) [Entitic mass] 31.9 pg 26.0 - 34.0 pg [facility] MCHC (RBC) [Mass/Vol] 32 % 30.5 - 36.0 % [facility] MCV (RBC) [Entitic vol] 99.8 fL High 77.0 - 99.0 fL [facility] Monocytes (Bld) [#/Vol] 0.5 10*3/uL 0.0 - 0.9 10*3/uL [facility] Monocytes/100 WBC (Bld) 7.2 % 5.0 - 13.0 % [facility] Neutrophils (Bld) [#/Vol] 4.2 10*3/uL 1.8 - 7.5 10*3/uL [facility] Neutrophils/100 WBC (Bld) 63.4 % 38.0 - 82.0 % [facility] Nucleated RBC/100 WBC (Bld) [Ratio] 0 % [facility] Platelet mean volume (Bld) [Entitic vol] 10.5 fL 9.0 - 12.7 fL [facility] Platelets (Bld) [#/Vol] 200 10*3/uL 140 - 440 10*3/uL [facility] RBC (Bld) [#/Vol] 4.64 10*6/uL 4.40 - 5.9 0 10*6/uL [facility] WBC (Bld) [#/Vol] 6.7 10*3/uL 3.6 - 10.7 10*3/uL [facility] CBC WITH AUTO DIFFERENTIALon 06-01-2024 Basophils (Bld) [#/Vol] 0.0 10*3/uL Normal 0.0-0.2 [facility] Comment on above: Performed By: #### L [id number] ####Medical Technician Assistant: LESLEE HERNANDEZ ([phone])[facility] (SBAB)[address] Basophils/100 WBC (Bld) 0.1 % Normal 0.0-2.0 [facility] Comment on above: Performed By: #### L [id number] ####Medical Technician Assistant: LESLEE HERNANDEZ ([phone])[facility] (SBAB)[address] Eosinophils (Bld) [#/Vol] 0.0 10*3/uL Normal 0.0-0.5 [facility] Comment on above: Performed By: #### L [id number] ####Medical Technician Assistant: LESLEE HENRANDEZ ([phone])[facility] (SBHLAB)[address] Eosinophils/100 WBC (Bld) 0.3 % Normal 0.0-6.0 [facility] Comment on above: Performed By: #### L [id number] ####Medical Technician Assistant: LESLEE MCNEILLNinoskaTYRONE ([phone])[facility] ([facility] [place] [address] Erythrocyte distribution width (RBC) [Ratio] 14.1 % Normal 11.5-15.0 [facility] Comment on above: Performed By: #### L [id number] ####Medical Technician Assistant: LESLEE MCNEILLRAMON ([phone])[facility] ([facility])[address] Hematocrit (Bld) [Volume fraction] 46.3 % Normal 40.0-52.0 [facility] Comment on above: Performed By: #### L [id number] ####Medical Technician Assistant: LESLEE MCNEILLRAMON ([phone])[facility] [place] (SBAB)[address] [place] [address] Hemoglobin (Bld) [Mass/Vol] 14.8 g/dL Normal 13.0-18.0 [facility] Comment on above: Performed By: #### L [id number] ####Medical Technician Assistant: LESLEE TURKTYRONE ([phone])[facility] (SBAB)[address] IMMATURE GRANS % 0.3 % Normal 0.0-2.0 [facility] Comment on above: Performed By: #### L [id number] ####Medical Technician Assistant: LESLEE TURKTYRONE ([phone])[facility] (SBAB)[address] IMMATURE GRANS ABSOLUTE 0.0 10*3/uL Normal <0.1 [facility] Comment on above: Performed By: #### L [id number] ####Medical Technician Assistant: LESLEE TURKTYRONE ([phone])[facility] (SBAB)[address] Lymphocytes (Bld) [#/Vol] 1.9 10*3/uL Normal 1.0-4.3 [facility] Comment on above: Performed By: #### L [id number] ####Medical Technician Assistant: LESLEE TURKTYRONE ([phone])[facility] [place] (SBHLAB)[address] Lymphocytes/100 WBC (Bld) 28.7 % Normal 15.0-45.0 [facility] Comment on above: Performed By: #### L [id number] ####Medical Technician Assistant: LESLEE TORRESCER ([phone])[facility] ([facility])[address] MCH (RBC) [Entitic mass] 31.9 pg Normal 26.0-34.0 [facility] Comment on above: Performed By: #### L [id number] ####Medical Technician Assistant: LESLEE TURKTYRONE ([phone])[facility] ([facility])[address] MCHC 32.0 % Normal 30.5-36.0 [facility] Comment on above: Performed By: #### L [id number] ####Medical Technician Assistant: LESLEE TURKTYRONE ([phone])[facility] ([facility])[address] MCV (RBC) [Entitic vol] 99.8 fL High 77.0-99.0 [facility] Comment on above: Performed By: #### L [id number] ####Medical Technician Assistant: LESLEE HERNANDEZ ([phone])[facility] ([facility])[address] Monocytes (Bld) [#/Vol] 0.5 10*3/uL Normal 0.0-0.9 [facility] Comment on above: Performed By: #### L [id number] ####Medical Technician Assistant: LESLEE HERNANDEZ ([phone])[facility] ([facility])[address] Monocytes/100 WBC (Bld) 7.2 % Normal 5.0-13.0 [facility] Comment on above: Performed By: #### L [id number] ####Medical Technician Assistant: LESLEE HERNANDEZ ([phone])[facility] [place] (SBHLAB)[address] NEUTROPHILS ABSOLUTE 4.2 10*3/uL Normal 1.8-7.5 [facility] Comment on above: Performed By: #### L [id number] ####Medical Technician Assistant: LESLEE HERNANDEZ ([phone])[facility] [place] (SBHLAB)[address] Neutrophils/100 WBC (Bld) 63.4 % Normal 38.0-82.0 [facility] Comment on above: Performed By: #### L [id number] ####Medical Technician Assistant: LESLEE HERNANDEZ ([phone])[facility] [place] (SBHLAB)[address] NRBC 0.0 /100 WBCs Normal 0.0-2.0 [facility] Comment on above: Performed By: #### L [id number] ####Medical Technician Assistant: LESLEE HERNANDEZ ([phone])[facility] [place] (SBHLAB)[address] Platelet mean volume (Bld) [Entitic vol] 10.5 fL Normal 9.0-12.7 [facility] Comment on above: Performed By: #### L [id number] ####Medical Technician Assistant: LESLEE HERNANDEZ ([phone])[facility] [place] (SBHLAB)[address] [place] [address] [place] Platelets (Bld) [#/Vol] 200 10*3/uL Normal 140-440 [facility] Comment on above: Performed By: #### L [id number] ####Medical Technician Assistant: LESLEE HERNANDEZ ([phone])[facility] [place] (SBHLAB)[address] RBC (Bld) [#/Vol] 4.64 10*6/uL Normal 4.40-5.90 [facility] Comment on above: Performed By: #### L [id number] ####Medical Technician Assistant: LESLEE HERNANDEZ ([phone])[facility] [place] (SBHLAB)[address] WBC (Bld) [#/Vol] 6.7 10*3/uL Normal 3.6-10.7 [facility] Comment on above: Performed By: #### L [id number] ####Medical Technician Assistant: LESLEE HERNANDEZ ([phone])[facility] [place] (SBHLAB)[address] COMPREHENSIVE METABOLIC PANE Ming 06-01-2024 Albumin [Mass/Vol] 3.1 g/dL Low 3.5-5.0 [facility] Comment on above: Performed By: #### L [id number] ####Medical Technician Assistant: LESLEE HERNANDEZ ([phone])[facility] [place] (SBHLAB)[address] ALP [Catalytic activity/Vol] 103 U/L Normal 40-150 [facility] Comment on above: Performed By: #### L [id number] ####Medical Technician Assistant: LESLEE HERNANDEZ ([phone])[facility] [place] (SBHLAB)[address] ALT [Catalytic activity/Vol] 170 U/L High <40 [facility] Comment on above: Performed By: #### L [id number] ####Medical Technician Assistant: LESLEE HERNANDEZ ([phone])[facility] [place] (SBHLAB)[address] Anion gap [Moles/Vol] 7 mmol/L Normal 3-13 [facility] Comment on above: Performed By: #### L [id number] ####Medical Technician Assistant: LESLEE HERNANDEZ ([phone])[facility] [place] (SBHLAB)[address] AST [Catalytic activity/Vol] 47 U/L High <34 [facility] Comment on above: Performed By: #### L [id number] ####Medical Technician Assistant: LESLEE HERNANDEZ ([phone])[facility] [place] (SBHLAB)[address] Bilirubin [Mass/Vol] 1.1 mg/dL Normal <1.2 [facility] Comment on above: Performed By: #### L [id number] ####Medical Technician Assistant: LESLEE HERNANDEZ ([phone])[facility] ([facility])[address] Calcium [Mass/Vol] 8.7 mg/dL Normal 8.4-10.2 [facility] Comment on above: Performed By: #### L [id number] ####Medical Technician Assistant: LESLEE HERNANDEZ ([phone])[facility] [place] (SBHLAB)[address] Chloride [Moles/Vol] 109 mmol/L High 98-107 [facility] Comment on above: Performed By: #### L [id number] ####Medical Technician Assistant: LESLEE HERNANDEZ ([phone])[facility] ([facility])[address] CO2 [Moles/Vol] 22 mmol/L Normal 22-29 [facility] Comment on above: Performed By: #### L [id number] ####Medical Technician Assistant: LESLEE HERNANDEZ ([phone])[facility] [place] (SBHLAB)[address] Creatinine [Mass/Vol] 2.05 mg/dL High 0.72-1.25 [facility] Comment on above: Performed By: #### L [id number] ####Medical Technician Assistant: LESLEE HERNANDEZ ([phone])[facility] (SBHLAB)[address] [place] [address] [place] GLOMERULAR FILTRATION RATE ML/MIN/1.73 SQ M.PREDICTED 39.7 mL/min/1.73m*2 Low >60.0 [facility] Comment on above: Result Comment: Calc ulation based on the Chronic Kidney Disease Epidemiology Collaboration (CKD-EPI) equation refit without adjustment for race Performed By: #### L [id number] ####Medical Technician Assistant: LESLEE HERNANDEZ ([phone])[facility] [place] (SBHLAB)[address] Glucose [Mass/Vol] 113 mg/dL High 74-100 [facility] Comment on above: Performed By: #### L [id number] ####Medical Technician Assistant: LESLEE HERNANDEZ ([phone])[facility] [place] (SBHLAB)[address] Potassium [Moles/Vol] 4.7 mmol/L Normal 3.5-5.1 [facility] Comment on above: Result Comment: [facility] potassium values may be up to 0.5 mmol/L lower than serum values. Performed By: #### L [id number] ####Medical Technician Assistant: LESLEE HERNANDEZ ([phone])[facility] [place] (SBHLAB)[address] Protein [Mass/Vol] 5.5 g/dL Low 6.4-8.3 [facility] Comment on above: Performed By: #### L [id number] ####Medical Technician Assistant: LESLEE HERNANDEZ ([phone])[facility] ([facility])[address] Sodium [Moles/Vol] 138 mmol/L Normal 136-145 [facility] Comment on above: Performed By: #### L [id number] ####Medical Technician Assistant: LESLEE HERNANDEZ ([phone])[facility] ([facility])[address] Urea nitrogen [Mass/Vol] 37 mg/dL High 8-21 [facility] Comment on above: Performed By: #### L [id number] ####Medical Technician Assistant: LESLEE HERNANDEZ ([phone])[facility] (SBHLAB)[address] Comprehensive metabolic 1998 panelon 06-01-2024 Albumin [Mass/Vol] 3.1 g/dL Low 3.5 - 5.0 g/dL [facility] ALP [Catalytic activity/Vol] 103 U/L 40 - 150 U/L [facility] ALT [Catalytic activity/Vol] 170 U/L [facility]/L [facility] Anion gap [Moles/Vol] 7 mmol/L 3 - 13 mmol/L [facility] AST [Catalytic activity/Vol] 47 U/L High [facility] - [facility] U/L [facility] Bilirubin [Mass/Vol] 1.1 mg/dL NINF - 1.2 mg/dL [facility] Calcium [Mass/Vol] 8.7 mg/dL 8.4 - 10. 2 mg/dL [facility] Chloride [Moles/Vol] 109 mmol/L High 98 - 10 7 mmol/L [facility] CO2 [Moles/Vol] 22 mmol/L 22 - 29 mmol/L [facility] Creatinine [Mass/Vol] 2.05 mg/dL High 0.72 - 1.25 mg/dL [facility] GFR/1.73 sq M.predicted (S/P/Bld) [Vol rate/Area] 39.7 mL/min Low - PINF [facility] Comment on above: Calculation based on the Chronic Kidney Disease Epidemiology Collaboration (CKD-EPI) equation refit without adjustment for race Glucose [Mass/Vol] 113 mg/dL High 74 - 100 mg/dL [facility] Interpretation and review of laboratory results Abnormal [facility] Potassium [Moles/Vol] 4.7 mmol/L 3.5 - 5.1 mmol/L [facility] Comment on above: Plasma potassium heidi ues may be up to 0.5 mmol/L lower than serum values. Protein [Mass/Vol] 5.5 g/dL Low 6.4 - 8.3 g/dL [facility] Sodium [Moles/Vol] 138 mmol/L 136 - 145 mmol/L [facility] Urea nitrogen [Mass/Vol] 37 mg/dL High 8 - 21 mg/dL [facility] Consulton 06-01-2024 Consult Normal [facility] MR Abdomen WO contraston 1. [...] Electronically Signed Date/Time: 06/01/2024 4:18 PM EST [facility] Patient Name: CARLO MEDINA : [...] Lymphadenopathy: None Other: Trace bilateral pleural effusions. [facility] Shane Galarza MD - 06/01/2024 Patient Name: [...] MD Electronically Signed Date/Time: 06/01/2024 4:[address] [facility] Radiology Study observation (narrative) [facility] Nursing Noteon 06-01-2024 Nursing Note Normal [facility] Nursing Note Normal [facility] Progress Noteon 06-01-2024 Progress Note Normal [facility] Progress Note Normal [facility] [id number] 05-31-2024 [id number] Normal [facility] Nursing Noteon 05-31-2024 Nursing Note Normal [facility] Progress Noteon 05-31-2024 [facility] Progress Note Normal [facility] US ABDOMEN COMPLETEon 2023 US ABDOMEN COMPLETE Normal [facility] US Abdomenon 05-31-2024 1. Gallbladder wall thickening [...] MD Electronically Signed Date/Time: 05/31/2024 4:20 PM [facility] Patient Name: CARLO MEDINA : 1980 [...] Ultrasound Melendez sign is positive. Per the sonography technologist, the sonographic Melendez's sign was negative. [...] cava: Visualized portions are normal Ascites: None [facility] Joel Hi MD - 05/31/2024 [facility] Name: [facility] 1980 [id number] Exam Date/Time: 05/31/2024 15:37 Procedure: US ABDOMEN [...] Ultrasound Melendez sign is positive. Per the sonography technologist, the sonographic Melendez's sign was negative. [...] Electronically Signed Date/Time: 05/31/2024 4:20 PM EST [facility] Radiology Study observation (narrative) [facility] US AbdomenOrdered By: Layton Hi on 05-31-2024 [facility] [employer] Work Phone: 25-hydroxyvitamin D3 [Mass/V ol]on 05-30-2024 Interpretation and review of laboratory results Abnormal [facility] Therapy is based on measurement of Total 25-OHD with the following classification levels: Less than 20 ng/mL: Indicative of Vit D deficiency 20-30 ng/mL: Suggests Vit D insufficiency Optimal: Greater than or equal to 30 ng/mL Test performed by [employer] Competitive Immunoassay, measuring Total Vitamin D, not individual fractions. [facility] 30on 05-30-2024 30 Normal [facility] 36on 05-30-2024 36 Normal [facility] CBC W Auto Differential pane l (Bld)on 05-30-2024 Basophils (Bld) [#/Vol] 0 10*3/uL 0.0 - 0.2 10*3/uL [facility] Basophils/100 WBC (Bld) 0.3 % 0.0 - 2.0 % [facility] Eosinophils (Bld) [#/Vol] 0.1 10*3/uL 0.0 - 0.5 10*3/uL [facility] Eosinophils/100 WBC (Bld) 0.6 % 0.0 - 6.0 % [facility] Erythrocyte distribution width (RBC) [Ratio] 14.1 % 11.5 - 15.0 % [facility] Hematocrit (Bld) [Volume fraction] 44.7 % 40.0 - 52.0 % [facility] Hemoglobin (Bld) [Mass/Vol] 14.5 g/dL 13.0 - 18.0 g/dL [facility] Immature granulocytes (Bld) [#/Vol] 0 10*3/uL NINF - 0.1 10*3/uL [facility] Immature granulocytes/100 WBC (Bld) 0.3 % 0.0 - 2.0 % [facility] Interpretation and review of laboratory results Normal [facility] Lymphocytes (Bld) [#/Vol] 1.7 10*3/uL 1.0 - 4.3 10*3/uL [facility] Lymphocytes/100 WBC (Bld) 22.3 % 15.0 - 45.0 % [facility] MCH (RBC) [Entitic mass] 31.8 pg 26.0 - 34.0 pg [facility] MCHC (RBC) [Mass/Vol] 32.4 % 30.5 - 36.0 % [facility] MCV (RBC) [Entitic vol] 98 fL 77.0 - 99.0 fL [facility] Monocytes (Bld) [#/Vol] 0.7 10*3/uL 0.0 - 0.9 10*3/uL [facility] Monocytes/100 WBC (Bld) 8.9 % 5.0 - 13.0 % [facility] Neutrophils (Bld) [#/Vol] 5.2 10*3/uL 1.8 - 7.5 10*3/uL [facility] Neutrophils/100 WBC (Bld) 67.6 % 38.0 - 82.0 % [facility] Nucleated RBC/100 WBC (Bld) [Ratio] 0.3 % [facility] Platelet mean volume (Bld) [Entitic vol] 10.6 fL 9.0 - 12.7 fL [facility] Platelets (Bld) [#/Vol] 204 10*3/uL 140 - 440 10*3/uL [facility] RBC (Bld) [#/Vol] 4.56 10*6/uL 4.40 - 5.9 0 10*6/uL [facility] WBC (Bld) [#/Vol] 7.7 10*3/uL 3.6 - 10.7 10*3/uL [facility] CBC WITH AUTO DIFFERENTIALon 05-30-2024 Basophils (Bld) [#/Vol] 0.0 10*3/uL Normal 0.0-0.2 [facility] Comment on above: Performed By: #### L [id number] ####Medical Technician Assistant: LESLEE HERNANDEZ ([phone])[facility] [place] (SBHLAB)[address] Basophils/100 WBC (Bld) 0.3 % Normal 0.0-2.0 [facility] Comment on above: Performed By: #### L [id number] ####Medical Technician Assistant: LESLEE HERNANDEZ ([phone])[facility] [place] (SBHLAB)[address] [place] [address] [place] Eosinophils (Bld) [#/Vol] 0.1 10*3/uL Normal 0.0-0.5 [facility] Comment on above: Performed By: #### L [id number] ####Medical Technician Assistant: LESLEE HERNANDEZ ([phone])[facility] [place] (SBHLAB)[address] Eosinophils/100 WBC (Bld) 0.6 % Normal 0.0-6.0 [facility] Comment on above: Performed By: #### L [id number] ####Medical Technician Assistant: LESLEE HERNANDEZ ([phone])[facility] [place] (SBHLAB)[address] Erythrocyte distribution width (RBC) [Ratio] 14.1 % Normal 11.5-15.0 [facility] Comment on above: Performed By: #### L [id number] ####Medical Technician Assistant: LESLEE HERNANDEZ ([phone])[facility] [place] (SBHLAB)[address] Hematocrit (Bld) [Volume fraction] 44.7 % Normal 40.0-52.0 [facility] Comment on above: Performed By: #### L [id number] ####Medical Technician Assistant: LESLEE HERNANDEZ ([phone])[facility] [place] (SBAB)[address] Hemoglobin (Bld) [Mass/Vol] 14.5 g/dL Normal 13.0-18.0 [facility] Comment on above: Performed By: #### L [id number] ####Medical Technician Assistant: LESLEE HERNANDEZ ([phone])[facility] [place] [address] IMMATURE GRANS % 0.3 % Normal 0.0-2.0 [facility] Comment on above: Performed By: #### L [id number] ####Medical Technician Assistant: LESLEE HERNANDEZ ([phone])[facility] ([facility])[address] [place] [address] IMMATURE GRANS ABSOLUTE 0.0 10*3/uL Normal <0.1 [facility] Comment on above: Performed By: #### L [id number] ####Medical Technician Assistant: LESLEE HERNANDEZ ([phone])[facility] [place] [address] Lymphocytes (Bld) [#/Vol] 1.7 10*3/uL Normal 1.0-4.3 [facility] Comment on above: Performed By: #### L [id number] ####Medical Technician Assistant: LESLEE HERNANDEZ ([phone])[facility] (SBAB)[address] [place] [address] Lymphocytes/100 WBC (Bld) 22.3 % Normal 15.0-45.0 [facility] Comment on above: Performed By: #### L [id number] ####Medical Technician Assistant: LESLEE HERNANDEZ ([phone])[facility] (SBAB)[address] [place] [address] MCH (RBC) [Entitic mass] 31.8 pg Normal 26.0-34.0 [facility] Comment on above: Performed By: #### L [id number] ####Medical Technician Assistant: LESLEE HERNANDEZ ([phone])[facility] [place] (SBHLAB)[address] MCHC 32.4 % Normal 30.5-36.0 [facility] Comment on above: Performed By: #### L [id number] ####Medical Technician Assistant: LESLEE HERNANDEZ ([phone])[facility] [place] (SBHLAB)[address] MCV (RBC) [Entitic vol] 98.0 fL Normal 77.0-99.0 [facility] Comment on above: Performed By: #### L [id number] ####Medical Technician Assistant: LESLEE HERNANDEZ ([phone])[facility] [place] (SBHLAB)[address] Monocytes (Bld) [#/Vol] 0.7 10*3/uL Normal 0.0-0.9 [facility] Comment on above: Performed By: #### L [id number] ####Medical Technician Assistant: LESLEE HERNANDEZ ([phone])[facility] [place] (SBHLAB)[address] Monocytes/100 WBC (Bld) 8.9 % Normal 5.0-13.0 [facility] Comment on above: Performed By: #### L [id number] ####Medical Technician Assistant: LESLEE HERNANDEZ ([id number])[facility] [place] (SBHLAB)[address] NEUTROPHILS ABSOLUTE 5.2 10*3/uL Normal 1.8-7.5 [facility] Comment on above: Performed By: #### L [id number] ####Medical Technician Assistant: LESLEE HERNANDEZ ([phone])[facility] [place] (SBHLAB)[address] Neutrophils/100 WBC (Bld) 67.6 % Normal 38.0-82.0 [facility] Comment on above: Performed By: #### L [id number] ####Medical Technician Assistant: LESLEE HERNANDEZ ([phone])[facility] ([facility])[address] [place] [address] NRBC 0.3 /100 WBCs Normal 0.0-2.0 [facility] Comment on above: Performed By: #### L [id number] ####Medical Technician Assistant: LESLEE HERNANDEZ ([phone])[facility] [place] (SBHLAB)[address] Platelet mean volume (Bld) [Entitic vol] 10.6 fL Normal 9.0-12.7 [facility] Comment on above: Performed By: #### L [id number] ####Medical Technician Assistant: LESLEE HERNANDEZ ([phone])[facility] (SBHL[facility])[address] [place] [address] Platelets (Bld) [#/Vol] 204 10*3/uL Normal 140-440 [facility] Comment on above: Performed By: #### L [id number] ####Medical Technician Assistant: LESLEE HERNANDEZ ([phone])[facility] (SBHL[facility])[address] [place] [address] RBC (Bld) [#/Vol] 4.56 10*6/uL Normal 4.40-5.90 [facility] Comment on above: Performed By: #### L [id number] ####Medical Technician Assistant: LESLEE HERNANDEZ ([phone])[facility] [place] (SBHLAB)[address] [place] [address] WBC (Bld) [#/Vol] 7.7 10*3/uL Normal 3.6-10.7 [facility] Comment on above: Performed By: #### L [id number] ####Medical Technician Assistant: LESLEE HERNANDEZ ([phone])[facility] (SB[facility])[address] [place] [address] COMPREHENSIVE METABOLIC PANE Ming 05-30-2024 Albumin [Mass/Vol] 3.1 g/dL Low 3.5-5.0 [facility] Comment on above: Performed By: #### L [id number] ####Medical Technician Assistant: LESLEE HERNANDEZ ([phone])[facility] [place] (SBHLAB)[address] ALP [Catalytic activity/Vol] 108 U/L Normal 38-126 [facility] Comment on above: Performed By: #### L [id number] ####Medical Technician Assistant: LESLEE HERNANDEZ ([phone])[facility] [place] (SB[facility]AB)[address] ALT [Catalytic activity/Vol] 160 U/L High 0-49 [facility] Comment on above: Performed By: #### L [id number] ####Medical Technician Assistant: LESLEE HERNANDEZ ([phone])[facility] [place] (SBHLAB)[address] Anion gap [Moles/Vol] 6 mmol/L Normal 3-13 [facility] Comment on above: Performed By: #### L [id number] ####Medical Technician Assistant: LESLEE HERNANDEZ ([phone])[facility] [place] (SBHLAB)[address] AST [Catalytic activity/Vol] 70 U/L High 15-46 [facility] Comment on above: Performed By: #### L [id number] ####Medical Technician Assistant: LESLEE HERNANDEZ ([phone])[facility] [place] (SBHLAB)[address] Bilirubin [Mass/Vol] 1.1 mg/dL Normal 0.2-1.3 [facility] Comment on above: Performed By: #### L AB17 ####Medical Technician Assistant: LESLEE HERNANDEZ ([phone])[facility] [place] (SBHLAB)[address] Calcium [Mass/Vol] 8.4 mg/dL Normal 8.4-10.4 [facility] Comment on above: Performed By: #### L [id number] ####Medical Technician Assistant: LESLEE HERNANDEZ ([phone])[place] (SBHLAB)155 [place] [address] [place] Chloride [Moles/Vol] 114 mmol/L High 98-107 [facility] Comment on above: Performed By: #### L [id number] ####Medical Technician Assistant: LESLEE TURKTYRONE ([phone])[facility] [place] (SBHLAB)[address] CO2 [Moles/Vol] 17 mmol/L Low 22-30 [facility] Comment on above: Performed By: #### L AB17 ####Medical Technician Assistant: LESLEE TURKTYRONE ([phone])[facility] [place] (SBHLAB)[address] Creatinine [Mass/Vol] 1.88 mg/dL High 0.66-1.25 [facility] Comment on above: Performed By: #### L AB17 ####Medical Technician Assistant: LESLEE TURKTYRONE ([phone])[facility] [place] (SBHLAB)155 [place] [address] [place] GLOMERULAR FILTRATION RATE ML/MIN/1.73 SQ M.PREDICTED 44.1 mL/min/1.73m*2 Low >60.0 [facility] Comment on above: Result Comment: Calc ulation based on the Chronic Kidney Disease Epidemiology Collaboration (CKD-EPI) equation refit without adjustment for race Performed By: #### L [id number] ####Medical Technician Assistant: LESLEE HERNANDEZ ([phone])[facility] [place] (SBHLAB)155 [place] [address] [place] Glucose [Mass/Vol] 124 mg/dL High 70-100 [facility] Comment on above: Performed By: #### L [id number] ####Medical Technician Assistant: LESLEE HERNANDEZ ([phone])[facility] [place] (SBHLAB)155 [place] [address] [place] Potassium [Moles/Vol] 4.4 mmol/L Normal 3.5-5.1 [facility] Comment on above: Performed By: #### L [id number] ####Medical Technician Assistant: LESLEE HERNANDEZ ([phone])[facility] (SBHLAB)[address] Protein [Mass/Vol] 5.6 g/dL Low 6.3-8.2 [facility] Comment on above: Performed By: #### L [id number] ####Medical Technician Assistant: LESLEE HERNANDEZ ([phone])[facility] [place] (SBHLAB)[address] Sodium [Moles/Vol] 136 mmol/L Normal 135-145 [facility] Comment on above: Performed By: #### L [id number] ####Medical Technician Assistant: LESLEE HERNANDEZ ([phone])[facility] [place] (SBHLAB)[address] Urea nitrogen [Mass/Vol] 42 mg/dL High 9-20 [facility] Comment on above: Performed By: #### L [id number] ####Medical Technician Assistant: LESLEE HERNANDEZ ([phone])[facility] (SBHLAB)[address] Comprehensive metabolic 1998 panelon 05-30-2024 Albumin [Mass/Vol] 3.1 g/dL Low 3.5 - 5.0 g/dL [facility] ALP [Catalytic activity/Vol] 108 U/L 38 - 126 U/L [facility] ALT [Catalytic activity/Vol] 160 U/L High 0 - 49 U/L [facility] Anion gap [Moles/Vol] 6 mmol/L 3 - 13 mmol/L [facility] AST [Catalytic activity/Vol] 70 U/L High 15 - 46 U/L [facility] Bilirubin [Mass/Vol] 1.1 mg/dL 0.2 - 1 .3 mg/dL [facility] Calcium [Mass/Vol] 8.4 mg/dL 8.4 - 10. 4 mg/dL [facility] Chloride [Moles/Vol] 114 mmol/L High 98 - 10 7 mmol/L [facility] CO2 [Moles/Vol] 17 mmol/L Low 22 - 30 mmol/L [facility] Creatinine [Mass/Vol] 1.88 mg/dL High 0.66 - 1.25 mg/dL [facility] GFR/1.73 sq M.predicted (S/P/Bld) [Vol rate/Area] 44.1 mL/min Low - PINF [facility] Comment on above: Calculation based on the Chronic Kidney Disease Epidemiology Collaboration (CKD-EPI) equation refit without adjustment for race Glucose [Mass/Vol] 124 mg/dL High 70 - 100 mg/dL [facility] Interpretation and review of laboratory results Abnormal [facility] Potassium [Moles/Vol] 4.4 mmol/L 3.5 - 5.1 mmol/L [facility] Protein [Mass/Vol] 5.6 g/dL Low 6.3 - 8.2 g/dL [facility] Sodium [Moles/Vol] 136 mmol/L 135 - 145 mmol/L [facility] Urea nitrogen [Mass/Vol] 42 mg/dL High 9 - 20 mg/dL [facility] Laboratory - Chemistry and C hemistry - challengeon 05-30-2024 25-hydroxyvitamin D3 [Mass/Vol] ng/mL Low 30 - 100 ng/mL [facility] Parathyrin.intact [Mass/Vol] 227.6 pg/mL High 7.5 - 53.5 pg/mL [facility] Nursing Noteon 05-30-2024 Nursing Note Normal [facility] Nursing Note Pt did not want to get stuck for labs and wanted to talk with daytime Dr about need for daily labs. Normal [facility] PHOSPHORUSon 05-30-2024 Phosphate [Mass/Vol] 4.7 mg/dL High 2.5-4.5 [facility] Comment on above: Performed By: #### L [id number] ####Medical Technician Assistant: LESLEE HERNANDEZ ([phone])[facility] ([facility])[address] PTH INTACTon 05-30-2024 PTH, INTACT 227.6 pg/mL High 7.5-53.5 [facility] Comment on above: Performed By: #### L [id number], [id number] ####Medical Technician Assistant: LESLEE HERNANDEZ ([phone])[facility] ([facility])[address] Parathyrin.intact [Mass/Vol] on 05-30-2024 Interpretation and review of laboratory results Abnormal [facility] Phosphate [Moles/Vol]on Interpretation and review of laboratory results Abnormal [facility] Phosphate [Mass/Vol] 4.7 mg/dL High 2.5 - 4 .5 mg/dL [facility] Progress Noteon 05-30-2024 Progress Note Normal [facility] VITAMIN D DEFICIENCY SCREENI NG (VIT D 25)on 05-30-2024 VIT D 25-OH, TOTAL <13 Low 30-100 [facility] Comment on above: Result Comment: ALEJANDRO Aleman COMMENTS:Therapy is based on measurement of Total 25-OHD with the following classification levels:Less than 20 ng/mL: Indicative of Vit D [id number] ng/mL: Suggests Vit D insufficiencyOptimal: Greater than or equal to 30 ng/mLTest performed by [employer] Competitive Immunoassay, measuring Total Vitamin D, not individual fractions. Performed By: #### L [id number], [id number] ####Medical Technician Assistant: LESLEE HERNANDEZ ([phone])[facility] (SBHLAB)[address] CBC W Auto Differential pane l (Bld)Ordered By: Roberto Puckett on 05-29-2024 Basophils (Bld) [#/Vol] 0 10*3/uL 0.0 - 0.2 10*3/uL [facility] Basophils/100 WBC (Bld) 0.2 % 0.0 - 2.0 % [facility] Eosinophils (Bld) [#/Vol] 0 10*3/uL 0.0 - 0.5 10*3/uL [facility] Eosinophils/100 WBC (Bld) 0.3 % 0.0 - 6.0 % [facility] Erythrocyte distribution width (RBC) [Ratio] 14 % 11.5 - 15.0 % [facility] Hematocrit (Bld) [Volume fraction] 42.8 % 40.0 - 52.0 % [facility] Hemoglobin (Bld) [Mass/Vol] 13.5 g/dL 13.0 - 18.0 g/dL [facility] Immature granulocytes (Bld) [#/Vol] 0 10*3/uL NINF - 0.1 10*3/uL [facility] [employer]ide[employer] Immature granulocytes/100 WBC (Bld) 0.3 % 0.0 - 2.0 % [facility] Interpretation and review of laboratory results Abnormal [facility] Lymphocytes (Bld) [#/Vol] 1.6 10*3/uL 1.0 - 4.3 10*3/uL [facility] Lymphocytes/100 WBC (Bld) 25.8 % 15.0 - 45.0 % [facility] MCH (RBC) [Entitic mass] 31.8 pg 26.0 - 34.0 pg [facility] MCHC (RBC) [Mass/Vol] 31.5 % 30.5 - 36.0 % [facility] MCV (RBC) [Entitic vol] 100.9 fL High 77.0 - 99.0 fL [facility] Monocytes (Bld) [#/Vol] 0.4 10*3/uL 0.0 - 0.9 10*3/uL [facility] Monocytes/100 WBC (Bld) 5.9 % 5.0 - 13.0 % [facility] Neutrophils (Bld) [#/Vol] 4.3 10*3/uL 1.8 - 7.5 10*3/uL [facility] Neutrophils/100 WBC (Bld) 67.5 % 38.0 - 82.0 % [facility] Nucleated RBC/100 WBC (Bld) [Ratio] 0 % [facility] Platelet mean volume (Bld) [Entitic vol] 10.7 fL 9.0 - 12.7 fL [facility] Platelets (Bld) [#/Vol] 160 10*3/uL 140 - 440 10*3/uL [facility] RBC (Bld) [#/Vol] 4.24 10*6/uL Low 4.40 - 5.9 0 10*6/uL [facility] WBC (Bld) [#/Vol] 6.3 10*3/uL 3.6 - 10.7 10*3/uL [facility] CBC WITH AUTO DIFFERENTIALon 05-29-2024 Basophils (Bld) [#/Vol] 0.0 10*3/uL Normal 0.0-0.2 [facility] Comment on above: Performed By: #### L [id number] ####Medical Technician Assistant: LESLEE TURKTYRONE ([phone])[facility] [place] (SBHLAB)[address] Basophils/100 WBC (Bld) 0.2 % Normal 0.0-2.0 [facility] Comment on above: Performed By: #### L [id number] ####Medical Technician Assistant: LESLEE MCNEILLRAMON ([phone])[facility] [place] (SBHLAB)[address] Eosinophils (Bld) [#/Vol] 0.0 10*3/uL Normal 0.0-0.5 [facility] Comment on above: Performed By: #### L [id number] ####Medical Technician Assistant: LESLEE MARY ([phone])[facility] [place] (SBHLAB)[address] [place] [address] Eosinophils/100 WBC (Bld) 0.3 % Normal 0.0-6.0 [facility] Comment on above: Performed By: #### L [id number] ####Medical Technician Assistant: LESLEE MCNEILLRAMON ([phone])[facility] [place] (SBHLAB)[address] [place] [address] Erythrocyte distribution width (RBC) [Ratio] 14.0 % Normal 11.5-15.0 [facility] Comment on above: Performed By: #### L [id number] ####Medical Technician Assistant: LESLEE HERNANDEZ ([phone])[facility] [place] (SBHLAB)[address] [place] [address] Hematocrit (Bld) [Volume fraction] 42.8 % Normal 40.0-52.0 [facility] Comment on above: Performed By: #### L [id number] ####Medical Technician Assistant: LESLEE TURKTYRONE ([phone])[facility] [place] (SBHLAB)[address] [place] [address] Hemoglobin (Bld) [Mass/Vol] 13.5 g/dL Normal 13.0-18.0 [facility] Comment on above: Performed By: #### L [id number] ####Medical Technician Assistant: LESLEE HERNANDEZ ([id number])[facility] (SB[facility])[address] IMMATURE GRANS % 0.3 % Normal 0.0-2.0 [facility] Comment on above: Performed By: #### L [id number] ####Medical Technician Assistant: LESLEE HERNANDEZ ([phone])[facility] [place] (SBHLAB)[address] IMMATURE GRANS ABSOLUTE 0.0 10*3/uL Normal <0.1 [facility] Comment on above: Performed By: #### L [id number] ####Medical Technician Assistant: LESLEE HERNANDEZ ([phone])[facility] (SBHLAB)[address] [place] [address] Lymphocytes (Bld) [#/Vol] 1.6 10*3/uL Normal 1.0-4.3 [facility] Comment on above: Performed By: #### L [id number] ####Medical Technician Assistant: LESLEE HERNANDEZ ([phone])[facility] (SBAB)[address] [place] [address] Lymphocytes/100 WBC (Bld) 25.8 % Normal 15.0-45.0 [facility] Comment on above: Performed By: #### L [id number] ####Medical Technician Assistant: LESLEE HERNANDEZ ([phone])[facility] (SBHLAB)[address] [place] [address] MCH (RBC) [Entitic mass] 31.8 pg Normal 26.0-34.0 [facility] Comment on above: Performed By: #### L [id number] ####Medical Technician Assistant: LESLEE HERNANDEZ ([phone])[facility] (SBHLAB)[address] [place] [address] MCHC 31.5 % Normal 30.5-36.0 [facility] Comment on above: Performed By: #### L [id number] ####Medical Technician Assistant: LESLEE HERNANDEZ ([phone])[facility] [place] (SBHLAB)[address] MCV (RBC) [Entitic vol] 100.9 fL High 77.0-99.0 [facility] Comment on above: Performed By: #### L [id number] ####Medical Technician Assistant: LESLEE TURKTYRONE ([phone])[facility] [place] (SBHLAB)[address] Monocytes (Bld) [#/Vol] 0.4 10*3/uL Normal 0.0-0.9 [facility] Comment on above: Performed By: #### L [id number] ####Medical Technician Assistant: LESLEE TORRESCER ([phone])[facility] [place] (SBHLAB)[address] Monocytes/100 WBC (Bld) 5.9 % Normal 5.0-13.0 [facility] Comment on above: Performed By: #### L [id number] ####Medical Technician Assistant: LESLEE TURKTYRONE ([phone])[facility] [place] (SBHLAB)[address] NEUTROPHILS ABSOLUTE 4.3 10*3/uL Normal 1.8-7.5 [facility] Comment on above: Performed By: #### L [id number] ####Medical Technician Assistant: LESLEE HERNANDEZ ([phone])[facility] [place] (SBHLAB)[address] Neutrophils/100 WBC (Bld) 67.5 % Normal 38.0-82.0 [facility] Comment on above: Performed By: #### L [id number] ####Medical Technician Assistant: LESLEE HERNANDEZ ([phone])[facility] [place] (SBHLAB)[address] NRBC 0.0 /100 WBCs Normal 0.0-2.0 [facility] Comment on above: Performed By: #### L [id number] ####Medical Technician Assistant: LESLEE HERNANDEZ ([phone])[facility] [place] (SBHLAB)[address] Platelet mean volume (Bld) [Entitic vol] 10.7 fL Normal 9.0-12.7 [facility] Comment on above: Performed By: #### L [id number] ####Medical Technician Assistant: LESLEEFIDELIA HERNANDEZ ([phone])[facility] [place] (SBHLAB)[address] Platelets (Bld) [#/Vol] 160 10*3/uL Normal 140-440 [facility] Comment on above: Performed By: #### L [id number] ####Medical Technician Assistant: LESLEEFIDELIA HERNANDEZ ([phone])[facility] (SBHLAB)[address] RBC (Bld) [#/Vol] 4.24 10*6/uL Low 4.40-5.90 [facility] Comment on above: Performed By: #### L [id number] ####Medical Technician Assistant: LESLEE MARY ([phone])[facility] (SBHLAB)[address] WBC (Bld) [#/Vol] 6.3 10*3/uL Normal 3.6-10.7 [facility] Comment on above: Performed By: #### L [id number] ####Medical Technician Assistant: LESLEE TURKTYRONE ([phone])[facility] (SBHLAB)[address] COMPREHENSIVE METABOLIC PANE Ming 05-29-2024 Albumin [Mass/Vol] 3.0 g/dL Low 3.5-5.0 [facility] Comment on above: Performed By: #### L [id number] ####Medical Technician Assistant: LESLEE TURKTYRONE ([phone])[facility] [place] (SBHLAB)[address] ALP [Catalytic activity/Vol] 105 U/L Normal 38-126 [facility] Comment on above: Performed By: #### L [id number] ####Medical Technician Assistant: LESLEE HERNANDEZ ([phone])[facility] [place] (SBHLAB)[address] ALT [Catalytic activity/Vol] 114 U/L High 0-49 [facility] Comment on above: Performed By: #### L AB17 ####Medical Technician Assistant: LESLEE TURKTYRONE ([phone])[facility] [place] (SBHLAB)[address] Anion gap [Moles/Vol] 4 mmol/L Normal 3-13 [facility] Comment on above: Performed By: #### L [id number] ####Medical Technician Assistant: LESLEE TURKTYRONE ([phone])[facility] [place] (SBHLAB)[address] AST [Catalytic activity/Vol] 49 U/L High 15-46 [facility] Comment on above: Performed By: #### L AB17 ####Medical Technician Assistant: LESLEE TURKTYRONE ([phone])[facility] [place] (SBHLAB)[address] Bilirubin [Mass/Vol] 1.3 mg/dL Normal 0.2-1.3 [facility] Comment on above: Performed By: #### L AB17 ####Medical Technician Assistant: LESLEE HERNANDEZ ([phone])[facility] [place] (SBHLAB)[address] Calcium [Mass/Vol] 8.2 mg/dL Low 8.4-10.4 [facility] Comment on above: Performed By: #### L AB17 ####Medical Technician Assistant: LESLEE HERNANDEZ ([phone])[facility] [place] (SBHLAB)[address] [place] [address] [place] Chloride [Moles/Vol] 114 mmol/L High 98-107 [facility] Comment on above: Performed By: #### L AB17 ####Medical Technician Assistant: LESLEE HERNANDEZ ([phone])[facility] [place] (SBHLAB)[address] CO2 [Moles/Vol] 18 mmol/L Low 22-30 [facility] Comment on above: Performed By: #### L AB17 ####Medical Technician Assistant: LESLEE HERNANDEZ ([phone])[facility] [place] (SBHLAB)[address] Creatinine [Mass/Vol] 1.73 mg/dL High 0.66-1.25 [facility] Comment on above: Performed By: #### L AB17 ####Medical Technician Assistant: LESLEE HERNANDEZ ([phone])[facility] [place] (SBHLAB)[address] GLOMERULAR FILTRATION RATE ML/MIN/1.73 SQ M.PREDICTED 48.7 mL/min/1.73m*2 Low >60.0 [facility] Comment on above: Result Comment: Calc ulation based on the Chronic Kidney Disease Epidemiology Collaboration (CKD-EPI) equation refit without adjustment for race Performed By: #### L [id number] ####Medical Technician Assistant: LESLEE HERNANDEZ ([phone])[facility] [place] (SBHLAB)[address] Glucose [Mass/Vol] 113 mg/dL High 70-100 [facility] Comment on above: Performed By: #### L AB17 ####Medical Technician Assistant: LESLEE HERNANDEZ ([phone])[facility]IN[facility] (SBHLAB)[address] [place] [address] [place] Potassium [Moles/Vol] 4.6 mmol/L Normal 3.5-5.1 [facility] Comment on above: Performed By: #### L AB17 ####Medical Technician Assistant: LESLEE HERNANDEZ ([phone])[facility] (SBHLAB)[address] Protein [Mass/Vol] 5.5 g/dL Low 6.3-8.2 [facility] Comment on above: Performed By: #### L AB17 ####Medical Technician Assistant: LESLEE HERNANDEZ ([phone])[facility] [place] (SBHLAB)[address] Sodium [Moles/Vol] 136 mmol/L Normal 135-145 [facility] Comment on above: Performed By: #### L AB17 ####Medical Technician Assistant: LESLEE HERNANDEZ ([phone])[facility] (SBHLAB)[address] Urea nitrogen [Mass/Vol] 41 mg/dL High 9-20 [facility] Comment on above: Performed By: #### L [id number] ####Medical Technician Assistant: LESLEE HERNANDEZ ([phone])[facility] (SBHLAB)[address] Comprehensive metabolic 1998 panelon 05-29-2024 Albumin [Mass/Vol] 3 g/dL Low 3.5 - 5.0 g/dL [facility] ALP [Catalytic activity/Vol] 105 U/L 38 - 126 U/L [facility] ALT [Catalytic activity/Vol] 114 U/L High 0 - 49 U/L [facility] Anion gap [Moles/Vol] 4 mmol/L 3 - 13 mmol/L [facility] AST [Catalytic activity/Vol] 49 U/L High 15 - 46 U/L [facility] Bilirubin [Mass/Vol] 1.3 mg/dL 0.2 - 1 .3 mg/dL [facility] Calcium [Mass/Vol] 8.2 mg/dL Low 8.4 - 10. 4 mg/dL [facility] Chloride [Moles/Vol] 114 mmol/L High 98 - 10 7 mmol/L [facility] CO2 [Moles/Vol] 18 mmol/L Low 22 - 30 mmol/L [facility] Creatinine [Mass/Vol] 1.73 mg/dL High 0.66 - 1.25 mg/dL [facility] GFR/1.73 sq M.predicted (S/P/Bld) [Vol rate/Area] 48.7 mL/min Low - PINF [facility] Comment on above: Calculation based on the Chronic Kidney Disease Epidemiology Collaboration (CKD-EPI) equation refit without adjustment for race Glucose [Mass/Vol] 113 mg/dL High 70 - 100 mg/dL [facility] Interpretation and review of laboratory results Abnormal [facility] Potassium [Moles/Vol] 4.6 mmol/L 3.5 - 5.1 mmol/L [facility] Protein [Mass/Vol] 5.5 g/dL Low 6.3 - 8.2 g/dL [facility] Sodium [Moles/Vol] 136 mmol/L 135 - 145 mmol/L [facility] Urea nitrogen [Mass/Vol] 41 mg/dL High 9 - 20 mg/dL [facility] Health Consulton 05-29-2024 Consult Normal [facility] Progress Noteon 05-29-2024 Progress Note Normal [facility] Progress Note Normal [facility] Progress Note Normal [facility] US RETROPERITONEALon 024 US RETROPERITONEAL Normal [facility] US Retroperitoneumon 024 No acute process. Echogenic kidneys suggesting medical renal disease. Report Dictated on Electronically Signed By: Shane Galarza MD Electronically Signed Date/Time: 05/29/2024 10:36 AM EST [facility] 1980 [id number] Exam Date/Time: 05/29/2024 09:46 Procedure: US RETROPERITONEAL [...] none Mass: none Cyst: none Bladder: Normal. [facility] Shane Galarza MD - 05/29/2024 Patient Name: [facility] 1980 [id number] Exam Date/Time: 05/29/2024 09:46 Procedure: US RETROPERITONEAL [...] Electronically Signed Date/Time: 05/29/2024 10:36 AM EST [facility] Radiology Study observation (narrative) [facility] 30on 05-28-2024 30 Normal [facility] BASIC METABOLIC PANELon 11-2 Anion gap [Moles/Vol] 10 mmol/L Normal 3-13 [facility] Comment on above: Performed By: #### L AB15, [id number] ####Medical Technician Assistant: LESLEE HERNANDEZ ([phone])[facility] (SBHLAB)[address] [place] [address] Calcium [Mass/Vol] 8.3 mg/dL Low 8.4-10.4 [facility] Comment on above: Performed By: #### L AB15, [id number] ####Medical Technician Assistant: LESLEE HERNANDEZ ([phone])[facility] (SBHLAB)[address] [place] [address] Chloride [Moles/Vol] 116 mmol/L High 98-107 [facility] Comment on above: Performed By: #### L AB15, [id number] ####Medical Technician Assistant: LESLEE HERNANDEZ ([phone])[facility] (SBHLAB)[address] CO2 [Moles/Vol] 14 mmol/L Low 22-30 [facility] Comment on above: Performed By: #### L AB15, [id number] ####Medical Technician Assistant: LESLEE HERNANDEZ ([phone])[facility] (SBHLAB)[address] Creatinine [Mass/Vol] 1.74 mg/dL High 0.66-1.25 [facility] Comment on above: Performed By: #### L AB15, [id number] ####Medical Technician Assistant: LESLEE HERNANDEZ ([phone])[facility] (SBHLAB)[address] GLOMERULAR FILTRATION RATE ML/MIN/1.73 SQ M.PREDICTED 48.4 mL/min/1.73m*2 Low >60.0 [facility] Comment on above: Result Comment: Calc ulation based on the Chronic Kidney Disease Epidemiology Collaboration (CKD-EPI) equation refit without adjustment for race Performed By: #### L AB15, [id number] ####Medical Technician Assistant: LESLEE HERNANDEZ ([phone])[facility] (SBHLAB)[address] Glucose [Mass/Vol] 96 mg/dL Normal 70-100 [facility] Comment on above: Performed By: #### L AB15, [id number] ####Medical Technician Assistant: LESLEE HERNANDEZ ([phone])[facility] (HLAB)[address] Potassium [Moles/Vol] 4.6 mmol/L Normal 3.5-5.1 [facility] Comment on above: Performed By: #### L AB15, [id number] ####Medical Technician Assistant: LELSEE HERNANDEZ ([phone])[facility] (SBHLAB)[address] Sodium [Moles/Vol] 139 mmol/L Normal 135-145 [facility] Comment on above: Performed By: #### L AB15, [id number] ####Medical Technician Assistant: LESLEE HERNANDEZ ([phone])[facility] (SBHLAB)155 [place] [address] [place] Urea nitrogen [Mass/Vol] 34 mg/dL High 9-20 [facility] Comment on above: Performed By: #### L AB15, [id number] ####Medical Technician Assistant: LESLEE HERNANDEZ ([phone])[facility] (SB[facility]AB)[address] Anion gap [Moles/Vol] 8 mmol/L Normal 3-13 [facility] Comment on above: Performed By: #### L [id number], LAB20, LAB15, DFW923, WYB105, [id number] ####Medical Technician Assistant: LESLEE HERNANDEZ ([phone])[facility] (SBHLAB)[address] Calcium [Mass/Vol] 9.1 mg/dL Normal 8.4-10.4 [facility] Comment on above: Performed By: #### L [id number], LAB20, LAB15, THP473, IPT983, VIR434 ####Medical Technician Assistant: LESLEE HERNANDEZ ([phone])[facility] (SBHLAB)[address] [place] [address] [place] Chloride [Moles/Vol] 114 mmol/L High 98-107 [facility] Comment on above: Performed By: #### L [id number], LAB20, LAB15, [id number], LNA356, EVM104 ####Medical Technician Assistant: LESLEE HERNANDEZ ([phone])[facility] (SBHLAB)[address] [place] [address] [place] CO2 [Moles/Vol] 19 mmol/L Low 22-30 [facility] Comment on above: Performed By: #### L [id number], LAB20, LAB15, ESC249, HSK664, BPS637 ####Medical Technician Assistant: LESLEE HERNANDEZ ([phone])[facility] (SBHLAB)[address] Creatinine [Mass/Vol] 2.06 mg/dL High 0.66-1.25 [facility] Comment on above: Performed By: #### L [id number], LAB20, LAB15, KLY471, AOO174, KRU667 ####Medical Technician Assistant: LESLEE HERNANDEZ ([phone])[facility] (SBAB)[address] GLOMERULAR FILTRATION RATE ML/MIN/1.73 SQ M.PREDICTED 39.5 mL/min/1.73m*2 Low >60.0 [facility] Comment on above: Result Comment: Calc ulation based on the Chronic Kidney Disease Epidemiology Collaboration (CKD-EPI) equation refit without adjustment for race Performed By: #### L [id number], LAB20, LAB15, ECQ844, IXD757, ZRI739 ####Medical Technician Assistant: LESLEE HERNANDEZ ([phone])[facility] (SBHLAB)[address] Glucose [Mass/Vol] 120 mg/dL High 70-100 [facility] Comment on above: Performed By: #### L [id number], LAB20, LAB15, ZXJ143, YZS910, LKZ096 ####Medical Technician Assistant: LESLEE HERNANDEZ ([phone])[facility] (SBHLAB)[address] Potassium [Moles/Vol] 4.6 mmol/L Normal 3.5-5.1 [facility] Comment on above: Performed By: #### L [id number], LAB20, LAB15, XSW613, WWI735, GQV223 ####Medical Technician Assistant: LESLEE HERNANDEZ ([phone])[facility] (SBHLAB)[address] Sodium [Moles/Vol] 141 mmol/L Normal 135-145 [facility] Comment on above: Performed By: #### L [id number], LAB20, LAB15, EYD634, OZR655, HYM027 ####Medical Technician Assistant: LESLEE HERNANDEZ ([phone])[facility] (SBHLAB)[address] Urea nitrogen [Mass/Vol] 38 mg/dL High 9-20 [facility] Comment on above: Performed By: #### L [id number], LAB20, LAB15, WNE144, JUG107, KUN235 ####Medical Technician Assistant: LESLEE HERNANDEZ ([phone])[facility] [place] [address] BLOOD GAS, VENOUSon 05-28-20 24 Base excess Calc (BldV) [Moles/Vol] -6.1000 mmol/L Low -3.0-3.0 [facility] Comment on above: Performed By: #### L AB79 ####Medical Technician Assistant: LESLEE HERNANDEZ ([phone])[facility] (SBHLAB)[address] [place] [address] CO2 [Moles/Vol] 19.6 mmol/L Low 23.0-30.0 [facility] Comment on above: Performed By: #### L AB79 ####Medical Technician Assistant: LESLEE HERNANDEZ ([phone])[facility] (SBHLAB)[address] HCO3 (Bld) [Moles/Vol] 18.5 mmol/L Low 21.0-30.0 [facility] Comment on above: Performed By: #### L AB79 ####Medical Technician Assistant: LESLEE HERNANDEZ ([phone])[facility] (SBHLAB)[address] Hemoglobin (Bld) [Mass/Vol] 16.6 g/dL Normal Screen only [facility] Comment on above: Performed By: #### L AB79 ####Medical Technician Assistant: LESLEE HERNANDEZ ([phone])[facility] [place] (SBHLAB)[address] OXYGEN (MM HG) IN VENOUS BLOOD 37.0 mm Hg Normal [facility] Comment on above: Performed By: #### L AB79 ####Medical Technician Assistant: LESLEE HERNANDEZ ([phone])[facility] (SBHLAB)[address] OXYGEN SATURATION (%) IN VENOUS BLOOD 62.6 % Normal [facility] Comment on above: Performed By: #### L AB79 ####Medical Technician Assistant: LESLEE HERNANDEZ ([phone])[facility] (SBHLAB)[address] PCO2, JAZ 34.6 mm Hg Low 38.0-56.0 [facility] Comment on above: Performed By: #### L AB79 ####Medical Technician Assistant: LESLEE HERNANDEZ ([phone])[facility] (SBHLAB)[address] PH VENOUS 7.347 Normal 7.320-7.420 [facility] Comment on above: Performed By: #### L AB79 ####Medical Technician Assistant: LESLEE HERNANDEZ ([phone])[facility] (SBHLAB)[address] SOURCE OF OXYGEN Room Air Normal [facility] Comment on above: Result Comment: ALEJANDRO [...] A SYRINGE. Performed By: #### L AB79 ####Medical Technician Assistant: LESLEE HERNANDEZ ([phone])[facility] [place] (SBHLAB)[address] Basic metabolic 1998 panelon 05-28-2024 Anion gap [Moles/Vol] 10 mmol/L 3 - 13 mmol/L [facility] Calcium [Mass/Vol] 8.3 mg/dL Low 8.4 - 10. 4 mg/dL [facility] Chloride [Moles/Vol] 116 mmol/L High 98 - 10 7 mmol/L [facility] CO2 [Moles/Vol] 14 mmol/L Low 22 - 30 mmol/L [facility] Creatinine [Mass/Vol] 1.74 mg/dL High 0.66 - 1.25 mg/dL [facility] GFR/1.73 sq M.predicted (S/P/Bld) [Vol rate/Area] 48.4 mL/min Low - PINF [facility] Comment on above: Calculation based on the Chronic Kidney Disease Epidemiology Collaboration (CKD-EPI) equation refit without adjustment for race Glucose [Mass/Vol] 96 mg/dL 70 - 100 mg/dL [facility] Interpretation and review of laboratory results Abnormal [facility] Potassium [Moles/Vol] 4.6 mmol/L 3.5 - 5.1 mmol/L [facility] Sodium [Moles/Vol] 139 mmol/L 135 - 145 mmol/L [facility] Urea nitrogen [Mass/Vol] 34 mg/dL High 9 - 20 mg/dL [facility] Anion gap [Moles/Vol] 8 mmol/L 3 - 13 mmol/L [facility] Calcium [Mass/Vol] 9.1 mg/dL 8.4 - 10. 4 mg/dL [facility] Chloride [Moles/Vol] 114 mmol/L High 98 - 10 7 mmol/L [facility] CO2 [Moles/Vol] 19 mmol/L Low 22 - 30 mmol/L [facility] Creatinine [Mass/Vol] 2.06 mg/dL High 0.66 - 1.25 mg/dL [facility] GFR/1.73 sq M.predicted (S/P/Bld) [Vol rate/Area] 39.5 mL/min Low - PINF [facility] Comment on above: Calculation based on the Chronic Kidney Disease Epidemiology Collaboration (CKD-EPI) equation refit without adjustment for race Glucose [Mass/Vol] 120 mg/dL High 70 - 100 mg/dL [facility] Potassium [Moles/Vol] 4.6 mmol/L 3.5 - 5.1 mmol/L [facility] Sodium [Moles/Vol] 141 mmol/L 135 - 145 mmol/L [facility] Urea nitrogen [Mass/Vol] 38 mg/dL High 9 - 20 mg/dL [facility] CBC W Auto Differential pane l (Bld)on 05-28-2024 Basophils (Bld) [#/Vol] 0 10*3/uL 0.0 - 0.2 10*3/uL [facility] Basophils/100 WBC (Bld) 0.2 % 0.0 - 2.0 % [facility] Eosinophils (Bld) [#/Vol] 0 10*3/uL 0.0 - 0.5 10*3/uL [facility] Eosinophils/100 WBC (Bld) 0.4 % 0.0 - 6.0 % [facility] Erythrocyte distribution width (RBC) [Ratio] 13.9 % 11.5 - 15.0 % [facility] Hematocrit (Bld) [Volume fraction] 48.3 % 40.0 - 52.0 % [facility] Hemoglobin (Bld) [Mass/Vol] 15.7 g/dL 13.0 - 18.0 g/dL [facility] Immature granulocytes (Bld) [#/Vol] 0 10*3/uL NINF - 0.1 10*3/uL [facility] Immature granulocytes/100 WBC (Bld) 0.2 % 0.0 - 2.0 % [facility] Interpretation and review of laboratory results Normal [facility] Lymphocytes (Bld) [#/Vol] 1.7 10*3/uL 1.0 - 4.3 10*3/uL [facility] Lymphocytes/100 WBC (Bld) 30.9 % 15.0 - 45.0 % [facility] MCH (RBC) [Entitic mass] 31.9 pg 26.0 - 34.0 pg [facility] MCHC (RBC) [Mass/Vol] 32.5 % 30.5 - 36.0 % [facility] MCV (RBC) [Entitic vol] 98.2 fL 77.0 - 99.0 fL [facility] Monocytes (Bld) [#/Vol] 0.3 10*3/uL 0.0 - 0.9 10*3/uL [facility] Monocytes/100 WBC (Bld) 5.7 % 5.0 - 13.0 % [facility] Neutrophils (Bld) [#/Vol] 3.4 10*3/uL 1.8 - 7.5 10*3/uL [facility] Neutrophils/100 WBC (Bld) 62.6 % 38.0 - 82.0 % [facility] Nucleated RBC/100 WBC (Bld) [Ratio] 0 % [facility] Platelet mean volume (Bld) [Entitic vol] 10.5 fL 9.0 - 12.7 fL [facility] Platelets (Bld) [#/Vol] 205 10*3/uL 140 - 440 10*3/uL [facility] RBC (Bld) [#/Vol] 4.92 10*6/uL 4.40 - 5.9 0 10*6/uL [facility] WBC (Bld) [#/Vol] 5.4 10*3/uL 3.6 - 10.7 10*3/uL [facility] CBC WITH AUTO DIFFERENTIALon 05-28-2024 Basophils (Bld) [#/Vol] 0.0 10*3/uL Normal 0.0-0.2 [facility] Comment on above: Performed By: #### L [id number] ####Medical Technician Assistant: LESLEE HERNANDEZ ([phone])[facility] Basophils/100 WBC (Bld) 0.2 % Normal 0.0-2.0 [facility] Comment on above: Performed By: #### L [id number] ####Medical Technician Assistant: LESLEE HERNANDEZ ([phone])[facility] [place] [address] [place] Eosinophils (Bld) [#/Vol] 0.0 10*3/uL Normal 0.0-0.5 [facility] Comment on above: Performed By: #### L [id number] ####Medical Technician Assistant: LESLEE HERNANDEZ ([phone])[facility] Eosinophils/100 WBC (Bld) 0.4 % Normal 0.0-6.0 [facility] Comment on above: Performed By: #### L [id number] ####Medical Technician Assistant: LESLEE HERNANDEZ ([phone])[facility] (SBHLAB)[address] Erythrocyte distribution width (RBC) [Ratio] 13.9 % Normal 11.5-15.0 [facility] Comment on above: Performed By: #### L [id number] ####Medical Technician Assistant: LESLEE HERNANDEZ ([phone])[facility] Hematocrit (Bld) [Volume fraction] 48.3 % Normal 40.0-52.0 [facility] Comment on above: Performed By: #### L [id number] ####Medical Technician Assistant: LESLEE HERNANDEZ ([phone])[facility] ([facility])[address] [place] [address] Hemoglobin (Bld) [Mass/Vol] 15.7 g/dL Normal 13.0-18.0 [facility] Comment on above: Performed By: #### L [id number] ####Medical Technician Assistant: LESLEE HERNANDEZ ([phone])[facility] [place] [address] IMMATURE GRANS % 0.2 % Normal 0.0-2.0 [facility] Comment on above: Performed By: #### L [id number] ####Medical Technician Assistant: LESLEE HERNANDEZ ([phone])[facility] IMMATURE GRANS ABSOLUTE 0.0 10*3/uL Normal <0.1 [facility] Comment on above: Performed By: #### L [id number] ####Medical Technician Assistant: LESLEE HERNANDEZ ([phone])[facility] Lymphocytes (Bld) [#/Vol] 1.7 10*3/uL Normal 1.0-4.3 [facility] Comment on above: Performed By: #### L [id number] ####Medical Technician Assistant: LESLEE HERNANDEZ ([phone])[facility] [place] (SBHLAB)[address] Lymphocytes/100 WBC (Bld) 30.9 % Normal 15.0-45.0 [facility] Comment on above: Performed By: #### L [id number] ####Medical Technician Assistant: LESLEE HERNANDEZ ([phone])[facility] (SBHLAB)[address] MCH (RBC) [Entitic mass] 31.9 pg Normal 26.0-34.0 [facility] Comment on above: Performed By: #### L [id number] ####Medical Technician Assistant: LESLEE HERNANDEZ ([phone])[facility] (SBHLAB)[address] [place] [address] MCHC 32.5 % Normal 30.5-36.0 [facility] Comment on above: Performed By: #### L [id number] ####Medical Technician Assistant: LESLEE HERNANDEZ ([phone])[facility] (SBHLAB)[address] [place] [address] MCV (RBC) [Entitic vol] 98.2 fL Normal 77.0-99.0 [facility] Comment on above: Performed By: #### L [id number] ####Medical Technician Assistant: LESLEE HERNANDEZ ([phone])[facility] (SBHLAB)[address] [place] [address] Monocytes (Bld) [#/Vol] 0.3 10*3/uL Normal 0.0-0.9 [facility] Comment on above: Performed By: #### L [id number] ####Medical Technician Assistant: LESLEE HERNANDEZ ([phone])[facility] (SBHLAB)[address] Monocytes/100 WBC (Bld) 5.7 % Normal 5.0-13.0 [facility] Comment on above: Performed By: #### L [id number] ####Medical Technician Assistant: LESLEE HERNANDEZ ([phone])[facility] (SBHLAB)[address] NEUTROPHILS ABSOLUTE 3.4 10*3/uL Normal 1.8-7.5 [facility] Comment on above: Performed By: #### L [id number] ####Medical Technician Assistant: LESLEE HERNANDEZ ([phone])[facility] [place] (SBHLAB)[address] Neutrophils/100 WBC (Bld) 62.6 % Normal 38.0-82.0 [facility] Comment on above: Performed By: #### L [id number] ####Medical Technician Assistant: LESLEE HERNANDEZ ([phone])[facility] [place] (SBHLAB)[address] NRBC 0.0 /100 WBCs Normal 0.0-2.0 [facility] Comment on above: Performed By: #### L [id number] ####Medical Technician Assistant: LESLEE HERNANDEZ ([phone])[facility] [place] (SBHLAB)[address] Platelet mean volume (Bld) [Entitic vol] 10.5 fL Normal 9.0-12.7 [facility] Comment on above: Performed By: #### L [id number] ####Medical Technician Assistant: LESLEE HERNANDEZ ([phone])[facility] [place] (SBHLAB)[address] [place] [address] [place] Platelets (Bld) [#/Vol] 205 10*3/uL Normal 140-440 [facility] Comment on above: Performed By: #### L [id number] ####Medical Technician Assistant: LESLEE HERNANDEZ ([phone])[facility] [place] (SBHLAB)[address] [place] [address] [place] RBC (Bld) [#/Vol] 4.92 10*6/uL Normal 4.40-5.90 [facility] Comment on above: Performed By: #### L [id number] ####Medical Technician Assistant: LESLEE HERNANDEZ ([phone])[facility] [place] (SBHLAB)[address] WBC (Bld) [#/Vol] 5.4 10*3/uL Normal 3.6-10.7 [facility] Comment on above: Performed By: #### L [id number] ####Medical Technician Assistant: LESLEE HERNANDEZ ([phone])[facility] [place] (SBHLAB)[address] CHLORIDE, URINE, RANDOMon CHLORIDE, UR RANDOM 45 mmol/L Normal 19-209 [facility] Comment on above: Performed By: #### L AB444, IUR355, UMD386, OIF851 ####Medical Technician Assistant: LESLEE HERNANDEZ ([phone])[facility] [place] (SBHLAB)[address] COMPLETE URINALYSISon 2023 AMORPHOUS CRYSTALS (#/HPF) IN URINE Few Abnormal Negative [facility] Comment on above: Performed By: #### L [id number] ####Medical Technician Assistant: LESLEE HERNANDEZ ([phone])[facility] [place] (SBHLAB)[address] [place] [address] [place] BACTERIA (#/HPF) IN URINE Few Abnormal Negative [facility] Comment on above: Performed By: #### L [id number] ####Medical Technician Assistant: LESLEE HERNANDEZ ([phone])[facility] [place] (SBHLAB)[address] [place] [address] [place] BILIRUBIN, TOTAL PRESENCE IN URINE Negative Normal Negative [facility] Comment on above: Performed By: #### L [id number] ####Medical Technician Assistant: LESLEE HERNANDEZ ([phone])[facility] [place] (SBHLAB)[address] Clarity (U) Clear Normal Clear [facility] Comment on above: Performed By: #### L [id number] ####Medical Technician Assistant: LESLEE HERNANDEZ ([phone])[facility] [place] (SBHLAB)[address] Color (U) Yellow Normal Lt. Yellow [facility] Comment on above: Performed By: #### L [id number] ####Medical Technician Assistant: LESLEE HERNANDEZ ([phone])[facility] GLUCOSE (MG/DL) IN URINE Normal Normal Normal (<70) [facility] Comment on above: Performed By: #### L [id number] ####Medical Technician Assistant: LESLEE HERNANDEZ ([phone])[facility] GRANULAR CASTS (#/LPF) IN URINE 0-2 Abnormal Negative [facility] Comment on above: Performed By: #### L [id number] ####Medical Technician Assistant: LESLEE HERNANDEZ ([phone])[facility] ([facility])[address] HEMOGLOBIN PRESENCE IN URINE 0.03 mg/dL Abnormal Negative [facility] Comment on above: Performed By: #### L [id number] ####Medical Technician Assistant: LESLEE HERNANDEZ ([phone])[facility] ([facility])[address] HYALINE CASTS (#/LPF) IN URINE SEDIMENT BY MICROSCOPY 3-5 Abnormal Negative [facility] Comment on above: Performed By: #### L [id number] ####Medical Technician Assistant: LESLEE HERNANDEZ ([phone])[facility] [place] [address] [place] Ketones Ql (U) Trace Abnormal Negative [facility] Comment on above: Performed By: #### L [id number] ####Medical Technician Assistant: LESLEE HERNANDEZ ([phone])[facility] LEUKOCYTE ESTERASE PRESENCE IN URINE BY TEST STRIP Negative Normal Negative [facility] Comment on above: Performed By: #### L [id number] ####Medical Technician Assistant: LESLEE TORRESCER ([phone])[facility] [place] (SBHLAB)[address] [place] [address] [place] MUCUS (#/LPF) IN URINE SEDIMENT Moderate Abnormal Negative [facility] Comment on above: Performed By: #### L [id number] ####Medical Technician Assistant: LESLEE MCNEILLRAMON ([phone])[facility] [place] (SB[facility])[address] [place] [address] [place] NITRITE PRESENCE IN URINE Negative Normal Negative [facility] Comment on above: Performed By: #### L [id number] ####Medical Technician Assistant: LESLEE HERNANDEZ ([phone])[facility] [place] ([facility])[address] [place] [address] [place] NON-SQUAMOUS EPITHELIAL (#/HPF) IN URINE 0-2 Abnormal Negative [facility] Comment on above: Performed By: #### L [id number] ####Medical Technician Assistant: LESLEE MARY ([phone])[facility] [place] ([facility])[address] pH (U) 5.5 [pH] Normal 5.0-8.0 [facility] Comment on above: Performed By: #### L [id number] ####Medical Technician Assistant: LESLEE TURKTYRONE ([phone])[facility] [place] ([facility])[address] Protein (U) [Mass/Vol] 70 mg/dL Abnormal Negative [facility] Comment on above: Performed By: #### L [id number] ####Medical Technician Assistant: LESLEE MCNEILLRAMON ([phone])[facility] [place] ([facility])[address] [place] [address] [place] RBC (#/HPF) IN URINE SEDIMENT 0-2 Normal 0-2 [facility] Comment on above: Performed By: #### L [id number] ####Medical Technician Assistant: LESLEE TURKTYRONE ([phone])[facility] [place] ([facility])[address] [place] [address] [place] Specific gravity (U) [Rel density] 1.032 High 1.005-1.030 [facility] Comment on above: Performed By: #### L [id number] ####Medical Technician Assistant: LESLEE HERNANDEZ ([phone])[facility] [place] ([facility])[address] SQUAMOUS EPITHELIAL CELLS (#/HPF) IN URINE SEDIMENT 0-2 Normal 3-5 [facility] Comment on above: Performed By: #### L [id number] ####Medical Technician Assistant: LESLEE HERNANDEZ ([phone])[facility] [place] ([facility])[address] UROBILINOGEN (MG/DL) IN URINE Normal Normal Normal (0-1) [facility] Comment on above: Performed By: #### L [id number] ####Medical Technician Assistant: LESLEE HERNANDEZ ([phone])[facility] [facility]EFRAÍNN (SBHLAB)[address] WBC (LEUKOCYTE) (#/HPF) IN URINE SEDIMENT 3-5 Normal 0-5 [facility] Comment on above: Performed By: #### L [id number] ####Medical Technician Assistant: LESLEE HERNANDEZ ([phone])[facility] (SBHLAB)[address] [place] [address] Consulton 05-28-2024 Consult Normal [facility] Consult Normal [facility] ECG 12-LEADon 05-28-2024 ECG 12-LEAD Normal [facility] ED Nursing Noteon 05-28-2024 ED Nursing Note Normal [facility] ED Provider Noteon ED Provider Note Normal [facility] HEPATIC FUNCTION PANELon Albumin [Mass/Vol] 3.8 g/dL Normal 3.5-5.0 [facility] Comment on above: Performed By: #### L [id number], LAB20, LAB15, [id number], [id number], [id number] ####Medical Technician Assistant: LESLEE HERNANDEZ ([phone])[facility] LELOEFRAÍNN (SBHLAB)[address] ALP [Catalytic activity/Vol] 104 U/L Normal 38-126 [facility] Comment on above: Performed By: #### L [id number], LAB20, LAB15, IGU083, [id number], [id number] ####Medical Technician Assistant: LESLEE HERNANDEZ ([phone])[facility] ALT [Catalytic activity/Vol] 129 U/L High 0-49 [facility] Comment on above: Performed By: #### L [id number], LAB20, LAB15, [id number], CYN500, [id number] ####Medical Technician Assistant: LESLEE HERNANDEZ ([phone])[facility] AST [Catalytic activity/Vol] 48 U/L High 15-46 [facility] Comment on above: Performed By: #### L [id number], LAB20, LAB15, [id number], [id number], [id number] ####Medical Technician Assistant: LESLEE HERNANDEZ ([phone])[facility] Bilirubin [Mass/Vol] 1.8 mg/dL High 0.2-1.3 [facility] Comment on above: Performed By: #### L [id number], LAB20, LAB15, [id number], AGO775, [id number] ####Medical Technician Assistant: LESLEE HERNANDEZ ([phone])[facility] Bilirubin.indirect [Mass/Vol] 0.0 mg/dL Normal 0.0-0.3 [facility] Comment on above: Performed By: #### L [id number], LAB20, LAB15, KTV619, [id number], [id number] ####Medical Technician Assistant: LESLEE HERNANDEZ ([phone])[facility] Protein [Mass/Vol] 6.8 g/dL Normal 6.3-8.2 [facility] Comment on above: Performed By: #### L [id number], LAB20, LAB15, [id number], YMK626, VSB210 ####Medical Technician Assistant: LESLEE HERNANDEZ ([phone])[facility] (SBHLAB)[address] [place] [address] Hepatic function 2000 panelo n 05-28-2024 Albumin [Mass/Vol] 3.8 g/dL 3.5 - 5.0 g/dL [facility] ALP [Catalytic activity/Vol] 104 U/L 38 - 126 U/L [facility] ALT [Catalytic activity/Vol] 129 U/L High 0 - 49 U/L [facility] AST [Catalytic activity/Vol] 48 U/L High 15 - 46 U/L [facility] Bilirubin [Mass/Vol] 1.8 mg/dL High 0.2 - 1 .3 mg/dL [facility] Bilirubin.conjugated [Mass/Vol] 0 mg/dL 0.0 - 0.3 mg/dL [facility] Protein [Mass/Vol] 6.8 g/dL 6.3 - 8.2 g/dL [facility] Laboratory - Chemistry and C hemistry - challengeon 05-28-2024 Chloride (U) [Moles/Vol] 45 mmol/L 19 - 209 mmol/L [facility] Sodium (24H U) [Mass/Vol] 74 mmol/L 30 - 90 mmol/L [facility] Troponin I.cardiac [Mass/Vol] 0.037 ng/mL [facility]/mL [facility] TSH Qn 0.82 m[IU]/L [facility] Troponin I.cardiac [Mass/Vol] 0.051 ng/mL High [facility] 0.[facility] ng/mL [facility] Magnesium [Mass/Vol] 2.4 mg/dL High 1.6 - 2 .3 mg/dL [facility] Glucose [Mass/Vol] 120 mg/dL High 70 - 100 mg/dL [facility] Laboratory - Chemistry and C hemistry - challengeOrdered By: Susan Patton on 05-28-2024 Base excess Calc (BldV) [Moles/Vol] -6.1000 mmol/L Low -3.0 - 3.0 mmol/L [facility] CO2 (BldV) [Partial pressure] 34.6 mm[Hg] Low [facility] CO2 [Moles/Vol] 19.6 mmol/L Low 23.0 - 30.0 mmol/L [facility] HCO3 (Bld) [Moles/Vol] 18.5 mmol/L Low 21.0 - 30.0 mmol/L [facility] Oxygen (BldV) [Partial pressure] 37 mm[Hg] mm Hg [facility] pH (BldV) 7.347 [pH] 7.320 - 7.[address] [facility] Laboratory - Hematology and Cell countsOrdered By: Susan Patotn on 05-28-2024 Hemoglobin (Bld) [Mass/Vol] 16.6 g/dL Screen only [facility] Laboratory - Urinalysison Protein (U) [Mass/Vol] 61 mg/dL High 0 - 12 mg/dL [facility] MAGNESIUMon 05-28-2024 Magnesium [Mass/Vol] 2.4 mg/dL High 1.6-2.3 [facility] Comment on above: Performed By: #### L [id number], LAB20, LAB15, GVR816, ZRF181, [id number] ####Medical Technician Assistant: LESLEE HERNANDEZ ([phone])[facility] [place] [address] MICROALBUMIN / CREATININE UR INE RATIOon 05-28-2024 CREATININE, URINE 293.8 mg/dL Normal No Range [facility] Comment on above: Performed By: #### L AB444, IFG131, MYX213, STE847 ####Medical Technician Assistant: LESLEE HERNANDEZ ([phone])[facility] (SBHLAB)[address] [place] [address] MICROALBUMIN, URINE 324.5 mg/L High 0.0-29.9 [facility] Comment on above: Result Comment: ALEJANDRO Aleman COMMENTS:Microalbumin concentrations <30 are considered normal, 30-300 are considered microalbuminuria (or risk of diabetic nephropathy), and >300 are considered clinical albuminuria (clinical nephropathy).Diabetes Care,27, Supplement 1, U74-17, 2003 Performed By: #### L AB444, CQC815, TKB690, OSJ731 ####Medical Technician Assistant: LESLEE HERNANDEZ ([phone])[facility] (SBHLAB)[address] [place] [address] MICROALBUMIN/CREATININ E RATIO 110.4 mg/g High 0.0-29.9 [facility] Comment on above: Performed By: #### L AB444, ACR698, KHL087, CRL968 ####Medical Technician Assistant: LESLEE HERNANDEZ ([phone])[facility] (SBHLAB)[address] Microalbumin/Creatinine rati o panel (U)on 05-28-2024 Albumin DL <= 20 mg/L (U) [Mass/Vol] 324.5 mg/L High 0.0 - 29.9 mg/L [facility] Albumin/Creatinine DL <= 20 mg/L (U) [Mass ratio] 110.4 mg/g High 0.0 - 29.9 mg/g [facility] CREATININE, URINE 293.8 mg/dL No Range [facility] Interpretation and review of laboratory results Abnormal [facility] Microalbumin concentrations <30 are considered normal, 30-300 are considered microalbuminuria (or risk of diabetic nephropathy), and >300 are considered clinical albuminuria (clinical nephropathy). Diabetes Care,27, Supplement 1, S70-22, 2004 [facility] NT PRO BNPon 05-28-2024 Natriuretic peptide B (Bld) [Mass/Vol] 39769 pg/mL High <20-100 [facility] Comment on above: Performed By: #### L [id number], LAB20, LAB15, ABD927, QJM165, RLE020 ####Medical Technician Assistant: LESLEE HERNANDEZ ([phone])[facility] [place] [address] [place] Natriuretic peptide B [Mass/ Vol]on 05-28-2024 Natriuretic peptide B (Bld) [Mass/Vol] 42148 pg/mL High <20 - 100 [facility] No Panel Informationon 05-28 Interpretation and review of laboratory results Normal [facility] Interpretation and review of laboratory results Abnormal [facility] Interpretation and review of laboratory results Abnormal [facility] P Ar[place] 54 degrees [facility] [place] Interval 133 ms [facility] QRS Ar[place] -28 degrees [facility] QRSD Interval [address] [facility] Interval 329 ms [facility] QTC Interval 473 ms [facility] T Wave Ar[place] 103 degrees [facility] Izaiah Martins MD - 05/28/2024 IMPRESSION: Sinus tachycardia Probable left atrial enlargement Abnormal R-wave progression, late transition Left ventricular hypertrophy Nonspecific T abnormalities, lateral leads Anterior ST elevation, probably due to LVH Electronically Signed On 05-28-2024 09:01:45 EST by Izaiah Martins [facility] Interpretation and review of laboratory results Abnormal [facility] Interpretation and review of laboratory results Abnormal [facility] Performed by: [facility], [address] [place] [address] CLIA ID: [id number] [facility] No Panel InformationOrdered By: Susan Patton on 05-28-2024 Interpretation and review of laboratory results Abnormal [facility] Source Of Oxygen Room Air [facility] Assessment of oxygenation is best done with an arterial blood gas determination. Reference ranges for pO2, bicarbonate, and base excess are for mixed venous blood. Specimens drawn from a peripheral vein will often have higher values. INTERPRET WITH CAUTION, pO2 VALUES FALSELY INCREASED DUE TO VACUUM IN TUBE. FOR ACCURATE RESULTS, PLEASE DRAW IN A SYRINGE. [facility] PROTEIN, URINE, RANDOMon Protein (U) [Mass/Vol] 61 mg/dL High 0-12 [facility] Comment on above: Performed By: #### L AB444, TXC532, JMT551, KJD386 ####Medical Technician Assistant: LESLEE HERNANDEZ ([phone])[facility] (SBHLAB)[address] [place] [address] SODIUM, URINE, RANDOMon 05-01 Sodium (U) [Moles/Vol] 74 mmol/L Normal 30-90 [facility] Comment on above: Performed By: #### L AB444, ZJP979, PQV550, PBJ886 ####Medical Technician Assistant: LESLEE HERNANDEZ ([phone])[facility] THYROID STIMULATING HORMONEo n 05-28-2024 THYROID STIMULATING HORMONE 0.820 uIU/mL Normal 0.465-4.680 [facility] Comment on above: Performed By: #### L [id number], LAB20, LAB15, OBM885, TCA127, ZWU411 ####Medical Technician Assistant: LESLEE HERNANDEZ ([phone])[facility] ([facility])[address] TROPONIN Ion 05-28-2024 Troponin I.cardiac [Mass/Vol] 0.037 ng/mL High <0.034 [facility] Comment on above: Result Comment: ALEJANDRO Aleman COMMENTS:Patients with high levels of Biotin oral intake (ie >5 mg/day) may have falsely decreased Troponin levels. Performed By: #### L AB15, CDE420 ####Medical Technician Assistant: LESLEE HERNANDEZ ([phone])[facility] ([facility])[address] [place] [address] TROPONIN, WITH SERIAL REFLEX on 05-28-2024 Troponin I.cardiac [Mass/Vol] 0.051 ng/mL High <0.034 [facility] Comment on above: Result Comment: ALEJANDRO Aleman COMMENTS:Patients with high levels of Biotin oral intake (ie >5 mg/day) may have falsely decreased Troponin levels. Performed By: #### L [id number], LAB20, LAB15, YZJ311, YSY372, PHM021 ####Medical Technician Assistant: LESLEE HERNANDEZ ([phone])[facility] [place] [address] [place] TSH Qnon 05-28-2024 Interpretation and review of laboratory results Normal [facility] Troponin I.cardiac [Mass/Vol ]on 05-28-2024 Interpretation and review of laboratory results Abnormal [facility] Patients with high levels of Biotin oral intake (ie >5 mg/day) may have falsely decreased Troponin levels. [facility] Patients with high levels of Biotin oral intake (ie >5 mg/day) may have falsely decreased Troponin levels. [facility] Urinalysis complete panel (U )Ordered By: Jessica Santoro on 05-28-2024 Amorphous Crystals, Urine Few Abnormal Negative /HPF [facility] Bacteria LM.HPF (Urine sed) [#/Area] Few Abnormal Negative /HPF [facility] Bilirubin Ql (U) Negative Negative mg/dL [facility] Clarity (U) Clear Clear [facility] Color (U) Yellow Lt. Yellow [facility] Epithelial cells.squamous LM.HPF (Urine sed) [#/Area] 0-[address] [facility] Glucose Ql (U) Normal Normal (<70) mg/dL [facility] Granular casts LM.HPF (Urine sed) [#/Area] 0-2 Abnormal Negative /LPF [facility] Hemoglobin Ql (U) 0.03 mg/dL Abnormal Negative [facility] ealth Hyaline casts Auto (Urine sed) [#/Area] 3-5 Abnormal Negative /LPF [facility] Interpretation and review of laboratory results Abnormal [facility] Ketones (U) [Mass/Vol] Trace Abnormal Negat dai mg/dL [facility] Leukocyte esterase Test strip Ql (U) Negative Negative Nicky/uL [facility] Mucus LM.HPF (Urine sed) [#/Area] Moderate Abnormal Negative /LPF [facility] Nitrite Ql (U) Negative Negative [facility] th Non-Squamous Epithalial Cells, Urine 0-2 Abnormal Negative /HPF [facility] pH (U) 5.5 [pH] 5.0 - 8.0 pH [facility] Protein (U) [Mass/Vol] 70 mg/dL Abnormal Negative [facility] RBC LM.HPF (Urine sed) [#/Area] 0-2 [facility] Specific gravity (U) [Rel density] 1.032 High 1.005 - 1.030 [facility] Urobilinogen (U) [Mass/Vol] Normal Normal (0-1) mg/dL [facility] WBC LM.HPF (Urine sed) [#/Area] 3-5 [facility] Vital signson 05-28-2024 Heart rate 124 /min bpm [facility] Vital signsOrdered By: Radu Patton on 05-28-2024 Oxygen saturation in Venous blood 62.6 % [facility] XR Chest Single viewon 05-28 FINDINGS AND IMPRESSION: SUPPORT DEVICES: None OSSEOUS STRUCTURES: Degenerative changes in the thoracic spine. HEART AND MEDIASTINUM: The cardiac silhouette is enlarged. The mediastinum is unremarkable. LUNGS AND PLEURA: The lungs are clear. No sizable pleural effusion. Report Dictated on Electronically Signed By: Shane Galarza MD Electronically Signed Date/Time: 05/28/2024 8:23 AM EST [facility] Patient Name: CARLO MEDINA : 1980 Exam Date/Time: 05/28/2024 08:13 Procedure: XR CHEST 1 VIEW Ordering Provider: MARTINS KEVIN Reason For Exam: DYSPNEA CHEST CLINICAL INDICATION: dyspnea TECHNIQUE: AP portable chest COMPARISON: 04/28/24 [facility] Shane Galarza MD - 05/28/2024 Patient [...] Electronically Signed Date/Time: 05/28/2024 8:23 AM EST [facility] Radiology Study observation (narrative) [facility] XR Chest Single viewOrdered By: Shane Galarza on 05-28-2024 [employer] Work Phone: 36on 05-05-2024 36 Normal [facility] 36on 04-30-2024 36 Normal [facility] 36 Normal [facility] ECG 12-LEADon 04-30-2024 ECG 12-LEAD IMPRESSION: Sinus tachycardia Probable left atrial enlargement Probable LVH with secondary repol abnrm Electronically Signed On 04-30-2024 12:14:37 EDT by Shannan Lima Normal [facility] 36on 04-29-2024 36 Normal [facility] 30on 04-28-2024 30 Normal [facility] [id number] 04-28-2024 [id number] Normal [facility] [id number] Normal [facility] [id number] Normal [facility] BASIC METABOLIC PANELon 10-3 Anion gap [Moles/Vol] 5 mmol/L Normal 3-13 [facility] Comment on above: Performed By: #### Pedro AB15, [id number], [id number] ####Medical Technician Assistant: NICOLE BOWERS ([phone])[facility] (SWRLAB)[address] [place] [address] [place] Calcium [Mass/Vol] 9.0 mg/dL Normal 8.4-10.4 [facility] Comment on above: Performed By: #### Pedro AB15, [id number], [id number] ####Medical Technician Assistant: NICOLE BOWERS ([phone])[facility] (SWRLAB)[address] [place] [address] [place] Chloride [Moles/Vol] 109 mmol/L High 98-107 [facility] Comment on above: Performed By: #### Pedro AB15, [id number], [id number] ####Medical Technician Assistant: NICOLE BOWERS ([phone])[facility] [place] (SWRLAB)[address] [place] [address] [place] CO2 [Moles/Vol] 26 mmol/L Normal 22-30 [facility] Comment on above: Performed By: #### L AB15, UIE404, [id number] ####Medical Technician Assistant: NICOLE BOWERS ([phone])[facility] [place] (SWRLAB)[address] [place] [address] [place] Creatinine [Mass/Vol] 1.58 mg/dL High 0.66-1.25 [facility] Comment on above: Performed By: #### Pedro JESSICA15, [id number], [id number] ####Medical Technician Assistant: NICOLE BOWERS ([phone])[facility] [place] (SWRLAB)[address] [place] [address] [place] GLOMERULAR FILTRATION RATE ML/MIN/1.73 SQ M.PREDICTED 54.3 mL/min/1.73m*2 Low >60.0 [facility] Comment on above: Result Comment: Calc ulation based on the Chronic Kidney Disease Epidemiology Collaboration (CKD-EPI) equation refit without adjustment for race Performed By: #### Pedro ORTEZ, [id number], [id number] ####Medical Technician Assistant: NICOLE BOWERS ([phone])[facility] [place] (SWRLAB)[address] [place] [address] [place] Glucose [Mass/Vol] 128 mg/dL High 70-100 [facility] Comment on above: Performed By: #### Pedro ORTEZ, [id number], [id number] ####Medical Technician Assistant: NICOLE BOWERS ([phone])[facility] YEH [facility] (SWRLAB)[address] [place] [address] [place] Potassium [Moles/Vol] 4.2 mmol/L Normal 3.5-5.1 [facility] Comment on above: Performed By: #### Pedro ORTEZ, [id number], [id number] ####Medical Technician Assistant: NICOLE BOWERS ([phone])[facility] YEH [facility] (SWRLAB)[address] [place] [address] [place] Sodium [Moles/Vol] 140 mmol/L Normal 135-145 [facility] Comment on above: Performed By: #### Pedro AB15, [id number], [id number] ####Medical Technician Assistant: NICOLE BOWERS ([phone])[facility] (SWRLAB)[address] [place] [address] [place] Urea nitrogen [Mass/Vol] 21 mg/dL High 9-20 [facility] Comment on above: Performed By: #### L AB15, [id number], [id number] ####Medical Technician Assistant: NICOLE BOWERS ([phone])[facility] KAMALJITCHRISTINA FLOWERS ([facility])[address] [place] [address] Bacteria identified Aer cx N om (Lower resp)on 04-28-2024 Gram Stain Result Many Epithelial cell s per low power field Abnormal [facility] Gram Stain Result Many Polymorphonuclear leukocytes per low power field Abnormal [facility] Gram Stain Result Positive Abnormal [facility]alth Gram Stain Result Smear contains >= 15 squamous cells per low power field, suggestive of poor quality. Culture not performed. Please re-collect if clinically indicated. Abnormal [facility] Interpretation and review of laboratory results Abnormal [facility] Basic metabolic 1998 panelon 04-28-2024 Anion gap [Moles/Vol] 5 mmol/L 3 - 13 mmol/L [facility] Calcium [Mass/Vol] 9 mg/dL 8.4 - 10. 4 mg/dL [facility] Chloride [Moles/Vol] 109 mmol/L High 98 - 10 7 mmol/L [facility] CO2 [Moles/Vol] 26 mmol/L 22 - 30 mmol/L [facility] Creatinine [Mass/Vol] 1.58 mg/dL High 0.66 - 1.25 mg/dL [facility] GFR/1.73 sq M.predicted (S/P/Bld) [Vol rate/Area] 54.3 mL/min Low - PINF [facility] Comment on above: Calculation based on the Chronic Kidney Disease Epidemiology Collaboration (CKD-EPI) equation refit without adjustment for race Glucose [Mass/Vol] 128 mg/dL High 70 - 100 mg/dL [facility] Interpretation and review of laboratory results Abnormal [facility] Potassium [Moles/Vol] 4.2 mmol/L 3.5 - 5.1 mmol/L [facility] Sodium [Moles/Vol] 140 mmol/L 135 - 145 mmol/L [facility] Urea nitrogen [Mass/Vol] 21 mg/dL High 9 - 20 mg/dL [facility] CBC W Auto Differential pane l (Bld)on 04-28-2024 Basophils (Bld) [#/Vol] 0 10*3/uL 0.0 - 0.2 10*3/uL [facility] Basophils/100 WBC (Bld) 0.2 % 0.0 - 2.0 % [facility] Eosinophils (Bld) [#/Vol] 0.1 10*3/uL 0.0 - 0.5 10*3/uL [facility] Eosinophils/100 WBC (Bld) 0.6 % 0.0 - 6.0 % [facility] Erythrocyte distribution width (RBC) [Ratio] 12 % 11.5 - 15.0 % [facility] Hematocrit (Bld) [Volume fraction] 36 % Low 40.0 - 52.0 % [facility] Hemoglobin (Bld) [Mass/Vol] 12.1 g/dL Low 13.0 - 18.0 g/dL [facility] Immature granulocytes (Bld) [#/Vol] 0 10*3/uL NINF - 0.1 10*3/uL [facility] Immature granulocytes/100 WBC (Bld) 0 % 0.0 - 2.0 % [facility] Interpretation and review of laboratory results Abnormal [facility] Lymphocytes (Bld) [#/Vol] 1.6 10*3/uL 1.0 - 4.3 10*3/uL [facility] Lymphocytes/100 WBC (Bld) 19.5 % 15.0 - 45.0 % [facility] MCH (RBC) [Entitic mass] 31.4 pg 26.0 - 34.0 pg [facility] MCHC (RBC) [Mass/Vol] 33.6 % 30.5 - 36.0 % [facility] MCV (RBC) [Entitic vol] 93.5 fL 77.0 - 99.0 fL [facility] Monocytes (Bld) [#/Vol] 0.6 10*3/uL 0.0 - 0.9 10*3/uL [facility] Monocytes/100 WBC (Bld) 7.6 % 5.0 - 13.0 % [facility] Neutrophils (Bld) [#/Vol] 5.8 10*3/uL 1.8 - 7.5 10*3/uL [facility] Neutrophils/100 WBC (Bld) 72.1 % 38.0 - 82.0 % [facility] Nucleated RBC/100 WBC (Bld) [Ratio] 0 % [facility] Platelet mean volume (Bld) [Entitic vol] 9 fL 9.0 - 12.7 fL [facility] Comment on above: MPV is a calculated measurement using platelet volume ratio Platelets (Bld) [#/Vol] 277 10*3/uL 140 - 440 10*3/uL [facility] RBC (Bld) [#/Vol] 3.85 10*6/uL Low 4.40 - 5.9 0 10*6/uL [facility] WBC (Bld) [#/Vol] 8 10*3/uL 3.6 - 10.7 10*3/uL [facility] CBC WITH AUTO DIFFERENTIALon 04-28-2024 Basophils (Bld) [#/Vol] 0.0 10*3/uL Normal 0.0-0.2 [facility] Comment on above: Performed By: #### L [id number] ####Medical Technician Assistant: NICOLE BOWERS ([phone])[facility] [employer] [facility] (SWRLAB)[address] [place] [address] [place] Basophils/100 WBC (Bld) 0.2 % Normal 0.0-2.0 [facility] Comment on above: Performed By: #### L [id number] ####Medical Technician Assistant: NICOLE BOWERS ([phone])[facility] (SWRLAB)[address] [place] [address] [place] Eosinophils (Bld) [#/Vol] 0.1 10*3/uL Normal 0.0-0.5 [facility] Comment on above: Performed By: #### L [id number] ####Medical Technician Assistant: NICOLE BOWERS ([phone])[facility] (SWRL[facility])[address] [place] [address] [place] Eosinophils/100 WBC (Bld) 0.6 % Normal 0.0-6.0 [facility] Comment on above: Performed By: #### L [id number] ####Medical Technician Assistant: NICOLE BOWERS ([phone])[facility] (SWRLAB)[address] [place] [address] [place] Erythrocyte distribution width (RBC) [Ratio] 12.0 % Normal 11.5-15.0 [facility] Comment on above: Performed By: #### L [id number] ####Medical Technician Assistant: NICOLE BOWERS ([phone])[facility] (SWRLAB)[address] [place] [address] Hematocrit (Bld) [Volume fraction] 36.0 % Low 40.0-52.0 [facility] Comment on above: Performed By: #### L [id number] ####Medical Technician Assistant: NICOLE BOWERS ([phone])[facility] (SWRLAB)[address] [place] [address] Hemoglobin (Bld) [Mass/Vol] 12.1 g/dL Low 13.0-18.0 [facility] Comment on above: Performed By: #### L [id number] ####Medical Technician Assistant: NICOLE BOWERS ([phone])[facility]INKey[facility] (SWRLAB)[address] [place] [address] IMMATURE GRANS % 0.0 % Normal 0.0-2.0 [facility] Comment on above: Performed By: #### L [id number] ####Medical Technician Assistant: NICOLE BOWERS ([phone])[facility]IN[facility] (SWRLAB)[address] [place] [address] IMMATURE GRANS ABSOLUTE 0.0 10*3/uL Normal <0.1 [facility] Comment on above: Performed By: #### L [id number] ####Medical Technician Assistant: NICOLE BOWERS ([phone])[facility]IN[facility] (SWRLAB)[address] [place] [address] Lymphocytes (Bld) [#/Vol] 1.6 10*3/uL Normal 1.0-4.3 [facility] Comment on above: Performed By: #### L [id number] ####Medical Technician Assistant: NICOLE BOWERS ([phone])[facility] YE[facility]ITTMAN (SWRLAB)[address] [place] [address] [place] Lymphocytes/100 WBC (Bld) 19.5 % Normal 15.0-45.0 [facility] Comment on above: Performed By: #### L [id number] ####Medical Technician Assistant: NICOLE BOWERS ([phone])[facility]IN[facility] (SWRLAB)[address] [place] [address] MCH (RBC) [Entitic mass] 31.4 pg Normal 26.0-34.0 [facility] Comment on above: Performed By: #### L [id number] ####Medical Technician Assistant: NICOLE BOWERS ([phone])[facility] (SWRLAB)[address] [place] [address] MCHC 33.6 % Normal 30.5-36.0 [facility] Comment on above: Performed By: #### L [id number] ####Medical Technician Assistant: NICOLE BOWERS ([phone])[facility] (SWRLAB)[address] [place] [address] MCV (RBC) [Entitic vol] 93.5 fL Normal 77.0-99.0 [facility] Comment on above: Performed By: #### L [id number] ####Medical Technician Assistant: NICOLE BOWERS ([phone])[facility] (SWRLAB)[address] [place] [address] Monocytes (Bld) [#/Vol] 0.6 10*3/uL Normal 0.0-0.9 [facility] Comment on above: Performed By: #### L [id number] ####Medical Technician Assistant: NICOLE BOWERS ([phone])[facility] (SWRLAB)[address] [place] [address] [place] Monocytes/100 WBC (Bld) 7.6 % Normal 5.0-13.0 [facility] Comment on above: Performed By: #### L [id number] ####Medical Technician Assistant: NICOLE BOWERS ([phone])[facility] (SWRLAB)[address] [place] [address] NEUTROPHILS ABSOLUTE 5.8 10*3/uL Normal 1.8-7.5 [facility] Comment on above: Performed By: #### L [id number] ####Medical Technician Assistant: NICOLE BOWERS ([phone])[facility]INKey[facility] YE[facility] (SWRLAB)[address] [place] [address] Neutrophils/100 WBC (Bld) 72.1 % Normal 38.0-82.0 [facility] Comment on above: Performed By: #### L [id number] ####Medical Technician Assistant: NICOLE BOWERS ([phone])[facility]INKey[facility] YE[facility] (SWRLAB)[address] [place] [address] NRBC 0.0 /100 WBCs Normal 0.0-2.0 [facility] Comment on above: Performed By: #### L [id number] ####Medical Technician Assistant: NICOLE BOWERS ([phone])[facility]INKey[facility] YE[facility]IT[facility] (SWRLAB)[address] [place] [address] Platelet mean volume (Bld) [Entitic vol] 9.0 fL Normal 9.0-12.7 [facility] Comment on above: Result Comment: MPV is a calculated measurement using platelet volume ratio Performed By: #### L [id number] ####Medical Technician Assistant: NICOLE BOWERS ([phone])[facility]INKey[facility] (SWRLAB)[address] [place] [address] [place] Platelets (Bld) [#/Vol] 277 10*3/uL Normal 140-440 [facility] Comment on above: Performed By: #### L [id number] ####Medical Technician Assistant: NICOLE BOWESR ([phone])[facility]INKey[facility] YE[facility] (SWRLAB)[address] [place] [address] RBC (Bld) [#/Vol] 3.85 10*6/uL Low 4.40-5.90 [facility] Comment on above: Performed By: #### L [id number] ####Medical Technician Assistant: NICOLE BOWERS ([phone])[facility] (SWRLAB)[address] WBC (Bld) [#/Vol] 8.0 10*3/uL Normal 3.6-10.7 [facility] Comment on above: Performed By: #### L [id number] ####Medical Technician Assistant: NICOLE BOWERS ([phone])[facility] VIKKIAN (SWRLAB)[address] CHEST ANGIOGRAM W AND/OR WO IV CONTRASTon 04-28-2024 CT CHEST ANGIOGRAM W AND/OR WO IV CONTRAST Normal [facility] CTA Chest vessels WO and W c ontrast Blossom 04-28-[address] scan of the chest for evidence of acute pulmonary embolism. 2. Cardiomegaly with pulmonary vascular congestion and trace bilateral pleural effusions with mild atelectatic changes right lung base Report Dictated on Electronically Signed By: Jose Raul Petersen MD Electronically Signed Date/Time: 04/28/2024 5:28 AM [facility] Patient Name: CARLO MEDINA : 1980 [facility]#: [id number] Exam Date/Time: 04/28/2024 04:58 Procedure: CT CHEST ANGIOGRAM W AND/OR WO IV CONTRAST Ordering Provider: LE DOUGLAS Reason For Exam: chest pain, positive dimer. RLL rhonchi. PNA vs PE. Reasons for examination: Chest pain/ shortness of breath. CT scan of the chest were performed with bolus contrast and high resolution scans for CT pulmonary angiographic study, with images post-processed by myself on [employer] workstation, with 3D - volume rendered CT [...] subsegmental, peripheral emboli, but none are seen. [facility] Jose Raul Petersen MD - 04/28/2024 [facility] 1980 [id number] Exam Date/Time: 04/28/2024 04:58 Procedure: CT CHEST ANGIOGRAM W AND/OR WO IV CONTRAST Ordering Provider: LE DOUGLAS Reason For Exam: chest pain, positive dimer. RLL rhonchi. PNA vs PE. Reasons for examination: Chest pain/ shortness of breath. CT scan of the chest were performed with bolus contrast and high resolution scans for CT pulmonary angiographic study, with images post-processed by myself on [employer] workstation, with 3D - volume rendered CT [...] Electronically Signed Date/Time: 04/28/2024 5:28 AM EDT [facility] Radiology Study observation (narrative) [facility] Consulton 04-28-2024 Consult Normal [facility] Consult Normal [facility] D-DIMER,QUANTITATIVEon 04-28 D-DIMER, INNOVANCE 1.97 mg/L High <0.50 [facility] Comment on above: Result Comment: ALEJANDRO R COMMENTS:Innovance D-Dimer values of <0.50 mg/L FEU can be used in combination with a pre-test probability model (e.g. Well's) to exclude pulmonary embolism (PE) disease, as well as an aid in the diagnosis of deep vein thrombosis (DVT). Performed By: #### L [id number] ####Medical Technician Assistant: NICOLE BOWERS ([phone])[facility] ([facility])[address] [place] [address] ECG 12-LEADon 04-28-2024 ECG 12-LEAD Normal [facility] ED Nursing Noteon 04-28-2024 ED Nursing Note Phoned [facility]. Hand off report given. Normal [facility] ED Nursing Note Phoned [facility] ED. No answer. Normal [facility] ED Nursing Note Patient signed transfer papers and instructions given to patient and significant other. Patient traveling by private vehicle. IV wrapped in coban. Normal [facility] ED Nursing Note Normal [facility] ED Provider Noteon ED Provider Note Normal [facility] Fibrin D-dimer FEU (PPP) [Ma ss/Vol]on 04-28-2024 Interpretation and review of laboratory results Abnormal [facility] D-Dimer values of <0.50 mg/L FEU can be used in combination with a pre-test probability model (e.g. Well's) to exclude pulmonary embolism (PE) disease, as well as an aid in the diagnosis of deep vein thrombosis (DVT). [facility] GROUP A STREP SCREEN BY PCRo n 04-28-2024 GROUP A STREP SCREEN BY PCR GROUP A STREP SCREEN BY PCR Reference Not Detected Not Detected ORDER COMMENTS: Methodology: real-time PCR Normal [facility] Comment on above: Performed By: #### L [id number] ####Medical Technician Assistant: NICOLE BOWERS ([phone])[facility] ([facility])[address] [place] [address] LEGIONELLA AND STREPTOCOCCUS URINE ANTIGENon 04-28-2024 LEGIONELLA AND STREPTOCOCCUS URINE ANTIGEN Normal [facility] Comment on above: Performed By: #### L [id number] ####Medical Technician Assistant: NICOLE BOWERS ([phone])[facility] (SACLAB)[address] [place], [place] [id number] [facility] Laboratory - Chemistry and C hemistry - challengeon 04-28-2024 Procalcitonin [Mass/Vol] 0.04 ng/mL 0.00 - 0.09 ng/mL [facility] Troponin I.cardiac [Mass/Vol] 0.032 ng/mL NINF - 0.034 ng/mL [facility] Troponin I.cardiac [Mass/Vol] 0.025 ng/mL NINF - 0.034 ng/mL [facility] Troponin I.cardiac [Mass/Vol] 0.02 ng/mL NINF - 0.034 ng/mL [facility] Laboratory - Coagulationon 1 Fibrin D-dimer FEU (PPP) [Mass/Vol] 1.97 mg/L High NINF - 0.50 mg/L [facility] Laboratory - Microbiology an d Antimicrobial susceptibilityon 04-28-2024 Bacteria identified Aer cx Nom (Lower resp) Culture canceled due to poor specimen quality. Recollect if clinically indicated. [facility] FLUAV RNA DEENA+probe Ql (Resp) Not detected Not Detected [facility] FLUBV RNA DEENA+probe Ql (Resp) Not detected Not Detected [facility] RSV RNA DEENA+probe Ql (Resp) Not detected Not Detected [facility] SARS-CoV-2 (COVID-19) RNA DEENA+probe Ql (Resp) Not detected Not Detected [facility] SARS-CoV-2 (COVID-19) RNA DEENA+probe Ql (Unsp spec) Methodology: real-time, RT-PCR The SARS-CoV-2, Flu A/B, and RSV Combo assay is intended for in vitro diagnostic use under the FDA Emergency Use Authorization (EUA). This test has not been FDA cleared or approved. In compliance with this authorization, please visit www.fda.gov/media/407 876/download or www.fda.gov/media/310 540/download to access the applicable information sheets. [facility] NT PRO BNPon 04-28-2024 Natriuretic peptide B (Bld) [Mass/Vol] 56516 pg/mL High <20-100 [facility] Comment on above: Performed By: #### L [id number], [id number], [id number] ####Medical Technician Assistant: NICOLE BOWERS ([phone])[facility] (SWRLAB)[address] Natriuretic peptide B [Mass/ Vol]on 04-28-2024 Interpretation and review of laboratory results Abnormal [facility] Natriuretic peptide B (Bld) [Mass/Vol] 69569 pg/mL High <20 - 100 [facility] No Panel InformationOrdered By: Tracey Cruz on 04-28-2024 Interpretation and review of laboratory results Normal [facility] Legionella pneumophila Ag Not detected Not Detected [facility] Streptococcus pneumoniae Ag Not detected Not Detected [facility] Methodology: Lateral flow enzyme immunoassay This assay is approved for detection of antigens to Streptococcus pneumoniae and Legionella pneumophila serogroup 1; however, other L. pneumophila serogroups may also be detected. [facility] No Panel Informationon 04-28 [facility] P Ar[place] 60 degrees [facility] Health [place] Interval 151 ms [facility] QRS Arden -18 degrees [facility] QRSD Interval 97 ms [facility] Healt h QT Interval 365 ms [facility] QTC Interval 455 ms [facility] T Wave Arden 189 degrees [facility] EKG shows NSR, LAD, normal [place] QRS and QTC intervals. LVH. ST depressions in I, AVL, II, III, AVF, V3-V6. No STEMI. No SVT. Previous EKG is unchanged. All ST segment changes are old. Electronically Signed On 04-28-2024 03:05:52 EDT by Juan Carlos Barros MD - 04/28/2024 IMPRESSION: EKG shows NSR, LAD, normal [place] QRS and QTC intervals. LVH. ST depressions in I, AVL, II, III, AVF, V3-V6. No STEMI. No SVT. Previous EKG is unchanged. All ST segment changes are old. Electronically Signed On 04-28-2024 03:05:52 EDT by Juan Carlos Le [facility] Nursing Noteon 04-28-2024 Nursing Note Discharge instructions given to and reviewed in detail with patient and his significant other. Patient verbalized understanding of all discharge instructions, all questions answered at the best of my ability at this time. Normal [facility] Nursing Note Notified Karrie JAMES CD U patient reported 2/10 chest pain, STAT EKG obtained. Karrie read EKG and stated it's okay, chronic findings. Administer nitroglycerin prn and morphine prn. Normal [facility] PROCALCITONIN TESTon 024 PROCALCITONIN 0.04 ng/mL Normal 0.00-0.09 [facility] Comment on above: Result Comment: ALEJANDRO Aleman COMMENTS:PCT <0.50 = Low risk of severe sepsis and/or septic shock.PCT >2.00 = High risk of severe sepsis and/or septic shock. Performed By: #### L [id number] ####Medical Technician Assistant: NICOLE BOWERS ([phone])[facility])[address] [place] [address] Procalcitonin [Mass/Vol]on Interpretation and review of laboratory results Normal [facility] PCT <0.50 = Low risk of severe sepsis and/or septic shock. PCT >2.00 = High risk of severe sepsis and/or septic shock. [facility] RESPIRATORY CULTURE AND STAI Non 04-28-2024 RESPIRATORY CULTURE AND STAIN Normal [facility] Comment on above: Performed By: #### L [id number] ####Medical Technician Assistant: NICOLE BOWERS ([phone])[facility] ([facility])[address] [place] [address] RESPIRATORY PATHOGENS PANEL BY PCRon 04-28-2024 RESPIRATORY PATHOGENS PANEL BY PCR Normal [facility] Comment on above: Performed By: #### L [id number] ####Medical Technician Assistant: NICOLE BOWERS ([phone])[facility])[address] [place] [address] Respiratory pathogens DNA an d RNA panel DEENA+non-probe (Nph)on 04-28-2024 Adenovirus Not detected Not Detected [facility] B. pertussis DNA DEENA+probe Ql (Unsp spec) Not detected Not Detected [facility] Bordetella parapertussis Not detected Not Detected [facility] Chlamydia pneumoniae Not detected Not Detected [facility] Coronavirus 229E Not detected Not Detected [facility] Coronavirus HKU1 Not detected Not Detected [facility] Coronavirus NL63 Not detected Not Detected [facility] Coronavirus OC43 Not detected Not Detected [facility] FLUAV RNA DEENA+non-probe Ql (Nph) Not detected Not Detected [facility] FLUBV RNA DEENA+non-probe Ql (Nph) Not detected Not Detected [facility] Human Metapneumovirus Not detected Not Detected [facility] Human Rhinovirus/Enterovirus Not detected Not Detected [facility] Interpretation and review of laboratory results Normal [facility] Mycoplasma pneumoniae Not detected Not Detected [facility] Parainfluenza 1 Not detected Not Detected [facility] Parainfluenza 2 Not detected Not Detected [facility] Parainfluenza 3 Not detected Not Detected [facility] Parainfluenza 4 Not detected Not Detected [facility] Respiratory Syncytial Virus Not detected Not Detected [facility] SARS-CoV-2 (COVID-19) RNA DEENA+non-probe Ql (Nph) Not detected Not Detected [facility] Methodology: Multiplex PCR [facility] S. pyogenes DNA DEENA+probe No m (Unsp spec)on 04-28-2024 Group A Strep Screen Not detected Not Detected [facility] Interpretation and review of laboratory results Normal [facility] Methodology: real-time PCR [facility] SARS-COV-2, FLU A/B, AND RSV COMBOon 04-28-2024 SARS-CoV-2 (COVID-19) RNA DEENA+probe Ql (Unsp spec) Normal [facility] Comment on above: Performed By: #### L [id number] ####Medical Technician Assistant: NICOLE BOWERS ([phone])[address] SARS-CoV-2, Flu A/B, and RSV Comboon 04-28-2024 Interpretation and review of laboratory results Normal [facility] TROPONIN I, HIGH SENSITIVITY on 04-28-2024 Troponin I.cardiac [Mass/Vol] 0.032 ng/mL Normal <0.034 [facility] Comment on above: Result Comment: ALEJANDRO Aleman COMMENTS:Moderately Hemolyzed. Interpret TROPONIN I with caution.Patients with high levels of Biotin oral intake (ie >5 mg/day) may have falsely decreased Troponin levels. Performed By: #### L [id number] ####Medical Technician Assistant: NICOLE BOWERS ([phone])[facility] ([facility])[address] [place] [address] Troponin I.cardiac [Mass/Vol] 0.025 ng/mL Normal <0.034 [facility] Comment on above: Result Comment: ALEJANDRO Aleman COMMENTS:Patients with high levels of Biotin oral intake (ie >5 mg/day) may have falsely decreased Troponin levels. Performed By: #### L [id number] ####Medical Technician Assistant: NICOLE BOWERS ([phone])[facility] (SWRLAB)[address] [place] [address] [place] TROPONIN, WITH SERIAL REFLEX on 04-28-2024 Troponin I.cardiac [Mass/Vol] 0.020 ng/mL Normal <0.034 [facility] Comment on above: Result Comment: ALEJANDRO Aleman COMMENTS:Patients with high levels of Biotin oral intake (ie >5 mg/day) may have falsely decreased Troponin levels. Performed By: #### L AB15, [id number], [id number] ####Medical Technician Assistant: NICOLE BOWERS ([phone])[facility] [employer] StudiosPSE&[facility] (SWRLAB)[address] [place] [address] [place] Troponin I.cardiac [Mass/Vol ]on 04-28-2024 Interpretation and review of laboratory results Normal [facility] Moderately Hemolyzed . Interpret TROPONIN I with caution. Patients with high levels of Biotin oral intake (ie >5 mg/day) may have falsely decreased Troponin levels. [employer] [facility] Interpretation and review of laboratory results Normal [facility] Patients with high levels of Biotin oral intake (ie >5 mg/day) may have falsely decreased Troponin levels. [employer] [facility] Interpretation and review of laboratory results Normal [facility] Patients with high levels of Biotin oral intake (ie >5 mg/day) may have falsely decreased Troponin levels. [facility]zer Vital signson 04-28-2024 Heart rate 93 /min bpm Schmoozer XR Chest 2 Viewson Patient Name: CARLO [...] Electronically Signed Date/Time: 04/28/2024 3:53 AM EDT [facility] Jose Raul Petersen MD - 04/28/2024 Patient Name: [facility] 1980 [id number] Exam Date/Time: 04/28/2024 03:52 Procedure: XR CHEST 2 VIEWS Ordering Provider: LE DOUGLAS Reason For Exam: CP. ACS vs pneumonia. HISTORY: Chest pain Frontal view the chest shows cardiomegaly with pulmonary vascular prominence with mild atelectatic changes lung bases right greater than left. Report Dictated on Electronically Signed By: Jose Raul Petersen MD Electronically Signed Date/Time: 04/28/2024 3:53 AM EDT [facility] Radiology Study observation (narrative) [facility] XR Chest 2 ViewsOrdered By: Jose Raul Petersen on 04-28-2024 [facility] Work Phone: 04-27-2024 36 [place] [id number] 36 LMOM requesting return call, gave [facility] phone number also [place] 6841303-31-2024 36 Lmom return call, if no insurance yet may be seen at [facility] with Dr Conklin. Will give number [phone] if needed [place] 6841303-16-2024 36 Will call back [facility] 03-08-2024 36 [facility] [place] NICKY reached out to schedule Hospital Follow up appointment. [facility] [place] SWK offered assistance with financial assistance program until his Medicaid was active. Pt declined, stating he wants to wait until his Medicaid is active before scheduling a follow up. Normal [facility] 36 Normal [facility] BASIC METABOLIC PANELon 09-0 Anion gap [Moles/Vol] 12 mmol/L Normal 3-13 [facility] Comment on above: Performed By: #### L AB15, [id number] ####Medical Technician Assistant: LESLEE HERNANDEZ ([phone])[facility] [place] (SBHLAB)[address] Calcium [Mass/Vol] 9.4 mg/dL Normal 8.4-10.4 [facility] Comment on above: Performed By: #### L AB15, [id number] ####Medical Technician Assistant: LESLEE HERNANDEZ ([phone])[facility]IN[facility] [place] (SBHLAB)[address] Chloride [Moles/Vol] 104 mmol/L Normal 98-107 [facility] Comment on above: Performed By: #### L AB15, [id number] ####Medical Technician Assistant: LESLEE HERNANDEZ ([phone])[facility]IN[facility] [place] (SBHLAB)[address] [place] [address] [place] CO2 [Moles/Vol] 22 mmol/L Normal 22-30 [facility] Comment on above: Performed By: #### L AB15, [id number] ####Medical Technician Assistant: LESLEE HERNANDEZ ([phone])[facility] [place] (SBHLAB)[address] Creatinine [Mass/Vol] 1.74 mg/dL High 0.66-1.25 [facility] Comment on above: Performed By: #### L AB15, [id number] ####Medical Technician Assistant: LESLEE HERNANDEZ ([phone])[facility]IN[facility] [place] (SBHLAB)[address] [place] [address] [place] GLOMERULAR FILTRATION RATE ML/MIN/1.73 SQ M.PREDICTED 48.4 mL/min/1.73m*2 Low >60.0 [facility] Comment on above: Result Comment: Calc ulation based on the Chronic Kidney Disease Epidemiology Collaboration (CKD-EPI) equation refit without adjustment for race Performed By: #### L AB15, [id number] ####Medical Technician Assistant: LESLEE HERNANDEZ ([phone])[facility]IN[facility] [place] (SBHLAB)[address] Glucose [Mass/Vol] 113 mg/dL High 70-100 [facility] Comment on above: Performed By: #### L AB15, [id number] ####Medical Technician Assistant: LESLEE HERNANDEZ ([phone])[facility] [facility] (SBHLAB)[address] Potassium [Moles/Vol] 3.5 mmol/L Normal 3.5-5.1 [facility] Comment on above: Performed By: #### L AB15, [id number] ####Medical Technician Assistant: LESLEE HERNANDEZ ([phone])[facility] (SBHLAB)[address] Sodium [Moles/Vol] 138 mmol/L Normal 135-145 [facility] Comment on above: Performed By: #### L AB15, [id number] ####Medical Technician Assistant: LESLEE HERNANDEZ ([phone])[facility] [place] (SBHLAB)[address] Urea nitrogen [Mass/Vol] 27 mg/dL High 9-20 [facility] Comment on above: Performed By: #### L AB15, [id number] ####Medical Technician Assistant: LESLEE HERNANDEZ ([phone])[facility] (SBHLAB)[address] Basic metabolic 1998 panelon 03-07-2024 Anion gap [Moles/Vol] 12 mmol/L 3 - 13 mmol/L [facility] Calcium [Mass/Vol] 9.4 mg/dL 8.4 - 10. 4 mg/dL [facility] Chloride [Moles/Vol] 104 mmol/L 98 - 10 7 mmol/L [facility] CO2 [Moles/Vol] 22 mmol/L 22 - 30 mmol/L [facility] Creatinine [Mass/Vol] 1.74 mg/dL High 0.66 - 1.25 mg/dL [facility] GFR/1.73 sq M.predicted (S/P/Bld) [Vol rate/Area] 48.4 mL/min Low - PINF [facility] Comment on above: Calculation based on the Chronic Kidney Disease Epidemiology Collaboration (CKD-EPI) equation refit without adjustment for race Glucose [Mass/Vol] 113 mg/dL High 70 - 100 mg/dL [facility] Interpretation and review of laboratory results Abnormal [facility] Potassium [Moles/Vol] 3.5 mmol/L 3.5 - 5.1 mmol/L [facility] Sodium [Moles/Vol] 138 mmol/L 135 - 145 mmol/L [facility] Urea nitrogen [Mass/Vol] 27 mg/dL High 9 - 20 mg/dL [facility] CBC (HEMOGRAM)on 03-07-2024 Erythrocyte distribution width (RBC) [Ratio] 11.6 % Normal 11.5-15.0 [facility] Comment on above: Performed By: #### L [id number] ####Medical Technician Assistant: LESLEE HERNANDEZ ([phone])[facility] [place] [address] Hematocrit (Bld) [Volume fraction] 45.5 % Normal 40.0-52.0 [facility] Comment on above: Performed By: #### L [id number] ####Medical Technician Assistant: LESLEE HERNANDEZ ([phone])[facility] [place] [address] Hemoglobin (Bld) [Mass/Vol] 15.5 g/dL Normal 13.0-18.0 [facility] Comment on above: Performed By: #### L [id number] ####Medical Technician Assistant: LESLEE HERNANDEZ ([phone])[facility] (SBHLAB)[address] [place] [address] MCH (RBC) [Entitic mass] 31.5 pg Normal 26.0-34.0 [facility] Comment on above: Performed By: #### L [id number] ####Medical Technician Assistant: LESLEE HERNANDEZ ([phone])[facility] (SBAB)[address] MCHC 34.1 % Normal 30.5-36.0 [facility] Comment on above: Performed By: #### L [id number] ####Medical Technician Assistant: LESLEE HERNANDEZ ([phone])[facility] (SBHLAB)[address] MCV (RBC) [Entitic vol] 92.5 fL Normal 77.0-99.0 [facility] Comment on above: Performed By: #### L [id number] ####Medical Technician Assistant: LESLEE HERNANDEZ ([phone])[facility]INKey[facility] LINDEFRAÍNN (SBHLAB)[address] Platelet mean volume (Bld) [Entitic vol] 9.0 fL Normal 9.0-12.7 [facility] Comment on above: Performed By: #### L [id number] ####Medical Technician Assistant: LESLEE HERNANDEZ ([phone])[facility]IN[facility] (SBHLAB)[address] Platelets (Bld) [#/Vol] 331 10*3/uL Normal 140-440 [facility] Comment on above: Performed By: #### L [id number] ####Medical Technician Assistant: LESLEE HERNANDEZ ([phone])[facility]Key[facility] (SBHLAB)[address] RBC (Bld) [#/Vol] 4.92 10*6/uL Normal 4.40-5.90 [facility] Comment on above: Performed By: #### L [id number] ####Medical Technician Assistant: LESLEE HERNANDEZ ([phone])[facility]INKey[facility] (SBHLAB)[address] [place] [address] [place] WBC (Bld) [#/Vol] 4.4 10*3/uL Normal 3.6-10.7 [facility] Comment on above: Performed By: #### L [id number] ####Medical Technician Assistant: LESLEE HERNANDEZ ([phone])[facility] (SBHLAB)[address] CBC panel Auto (Bld)Ordered By: Roberto Puckett on 03-07-2024 Erythrocyte distribution width (RBC) [Ratio] 11.6 % 11.5 - 15.0 % [facility] Hematocrit (Bld) [Volume fraction] 45.5 % 40.0 - 52.0 % [facility] Hemoglobin (Bld) [Mass/Vol] 15.5 g/dL 13.0 - 18.0 g/dL [facility] Interpretation and review of laboratory results Normal [facility] MCH (RBC) [Entitic mass] 31.5 pg 26.0 - 34.0 pg [facility] MCHC (RBC) [Mass/Vol] 34.1 % 30.5 - 36.0 % [facility] MCV (RBC) [Entitic vol] 92.5 fL 77.0 - 99.0 fL [facility] Platelet mean volume (Bld) [Entitic vol] 9.0 fL 9.0 - 12.7 fL [facility] Platelets (Bld) [#/Vol] 331 10*3/uL 140 - 440 10*3/uL [facility] RBC (Bld) [#/Vol] 4.92 10*6/uL 4.40 - 5.9 0 10*6/uL [facility] WBC (Bld) [#/Vol] 4.4 10*3/uL 3.6 - 10.7 10*3/uL [facility] Consulton 03-07-2024 Consult Normal [facility] ECG 12-LEADon 03-07-2024 ECG 12-LEAD IMPRESSION: Sinus rhythm Probable left atrial enlargement LVH with secondary repolarization abnormality Electronically Signed On 03-07-2024 09:21:22 EDT by Ming Nayak Normal [facility] IDNon 03-07-2024 IDN The patient is Moderately Stable - Low risk of patient condition declining or worsening The patient's goals for the shift include rest The clinical goals for the shift include comfort Normal [facility] Laboratory - Chemistry and C hemistry - challengeon 03-07-2024 Magnesium [Mass/Vol] 2.1 mg/dL 1.6 - 2 .3 mg/dL [facility] MAGNESIUMon 03-07-2024 Magnesium [Mass/Vol] 2.1 mg/dL Normal 1.6-2.3 [facility] Comment on above: Performed By: #### L AB15, [id number] ####Medical Technician Assistant: LESLEE HERNANDEZ ([phone])[facility] (SBHLAB)[address] [place] [address] Magnesium [Mass/Vol]on 03-07 Interpretation and review of laboratory results Normal [facility] [employer] No Panel InformationOrdered By: Ming Nayak on 03-07-2024 P Arden 65 degrees [facility] Work Phone: [place] Interval 140 ms [employer] Work Phone: QRS Arden -11 degrees [employer] Phone: QRSD Interval 104 ms [employer] Work Phone: QT Interval 365 ms [employer] Phone: QTC Interval 465 ms [employer] Phone: T Wave Arden 139 degrees [employer] Phone: [employer] Work Phone: No Panel Informationon 03-07 Sinus rhythm Probable left atrial enlargement LVH with secondary repolarization abnormality Electronically Signed On 03-07-2024 09:21:22 EDT by Ming Concepcion MD - 03/07/2024 IMPRESSION: Sinus rhythm Probable left atrial enlargement LVH with secondary repolarization abnormality Electronically Signed On 03-07-2024 09:21:22 EDT by Ming Nayak [facility] Progress Noteon 03-07-2024 Progress Note Normal [facility] [employer] [facility] Vital signsOrdered By: Nilsa Nayak on 03-07-2024 Heart rate 98 /min bpm [facility] Phone: BASIC METABOLIC PANELon Anion gap [Moles/Vol] 10 mmol/L Normal 3-13 [facility] Comment on above: Performed By: #### L AB15, [id number] ####Medical Technician Assistant: LESLEE HERNANDEZ ([phone])[facility]IN[facility] [place] (SBHLAB)[address] Calcium [Mass/Vol] 9.6 mg/dL Normal 8.4-10.4 [facility] Comment on above: Performed By: #### L AB15, [id number] ####Medical Technician Assistant: LESLEE HERNANDEZ ([phone])[facility]INKey[facility] (SBHLAB)[address] Chloride [Moles/Vol] 102 mmol/L Normal 98-107 [facility] Comment on above: Performed By: #### L AB15, [id number] ####Medical Technician Assistant: LESLEE HERNANDEZ ([phone])[facility] [place] (SBHLAB)[address] CO2 [Moles/Vol] 28 mmol/L Normal 22-30 [facility] Comment on above: Performed By: #### L AB15, [id number] ####Medical Technician Assistant: LESLEE HERNANDEZ ([phone])[facility] (SBHLAB)[address] Creatinine [Mass/Vol] 1.71 mg/dL High 0.66-1.25 [facility] Comment on above: Performed By: #### L AB15, [id number] ####Medical Technician Assistant: LESLEE HERNANDEZ ([phone])[facility] (SBHLAB)[address] [place] [address] [place] GLOMERULAR FILTRATION RATE ML/MIN/1.73 SQ M.PREDICTED 49.4 mL/min/1.73m*2 Low >60.0 [facility] Comment on above: Result Comment: Calc ulation based on the Chronic Kidney Disease Epidemiology Collaboration (CKD-EPI) equation refit without adjustment for race Performed By: #### L AB15, [id number] ####Medical Technician Assistant: LESLEE HERNANDEZ ([phone])[facility]INKey[facility] (SBHLAB)[address] [place] [address] [place] Glucose [Mass/Vol] 102 mg/dL High 70-100 [facility] Comment on above: Performed By: #### L AB15, [id number] ####Medical Technician Assistant: LESLEE TURKTYRONE ([phone])[facility] (SBHLAB)[address] Potassium [Moles/Vol] 3.8 mmol/L Normal 3.5-5.1 [facility] Comment on above: Performed By: #### L AB15, [id number] ####Medical Technician Assistant: LESLEE HERNANDEZ ([phone])[facility] (SBHLAB)[address] Sodium [Moles/Vol] 141 mmol/L Normal 135-145 [facility] Comment on above: Performed By: #### L AB15, [id number] ####Medical Technician Assistant: LESLEE TORRESCER ([phone])[facility] (SBHLAB)[address] Urea nitrogen [Mass/Vol] 22 mg/dL High 9-20 [facility] Comment on above: Performed By: #### L AB15, [id number] ####Medical Technician Assistant: LESLEE TURKTYRONE ([phone])[facility] (SBHLAB)[address] Basic metabolic 1998 panelon 03-06-2024 Anion gap [Moles/Vol] 10 mmol/L 3 - 13 mmol/L [facility] Calcium [Mass/Vol] 9.6 mg/dL 8.4 - 10. 4 mg/dL [facility] Chloride [Moles/Vol] 102 mmol/L 98 - 10 7 mmol/L [facility] CO2 [Moles/Vol] 28 mmol/L 22 - 30 mmol/L [facility] Creatinine [Mass/Vol] 1.71 mg/dL High 0.66 - 1.25 mg/dL [facility] GFR/1.73 sq M.predicted (S/P/Bld) [Vol rate/Area] 49.4 mL/min Low - PINF [facility] Comment on above: Calculation based on the Chronic Kidney Disease Epidemiology Collaboration (CKD-EPI) equation refit without adjustment for race Glucose [Mass/Vol] 102 mg/dL High 70 - 100 mg/dL [facility] Interpretation and review of laboratory results Abnormal [facility] Potassium [Moles/Vol] 3.8 mmol/L 3.5 - 5.1 mmol/L [facility] Sodium [Moles/Vol] 141 mmol/L 135 - 145 mmol/L [facility] Urea nitrogen [Mass/Vol] 22 mg/dL High 9 - 20 mg/dL [facility] Consulton 03-06-2024 Consult Normal [facility] ED Nursing Noteon 03-06-2024 ED Nursing Note Called [facility] to inform of pt refusing to go by squad and wants to go private vehicle. Pauline Martinez RN 03/06/24 0824 Normal [facility] IDNon 03-06-2024 IDN Normal [facility] Laboratory - Chemistry and C hemistry - challengeon 03-06-2024 Magnesium [Mass/Vol] 2.2 mg/dL 1.6 - 2 .3 mg/dL [facility] TSH Qn 4.380 m[IU]/L [facility]alt h MAGNESIUMon 03-06-2024 Magnesium [Mass/Vol] 2.2 mg/dL Normal 1.6-2.3 [facility] Comment on above: Performed By: #### L AB15, [id number] ####Medical Technician Assistant: LESLEE HERNANDEZ ([phone])[facility] JENNY (SBAB)[address] [place] [address] Magnesium [Mass/Vol]on 03-06 Interpretation and review of laboratory results Normal [facility] No Panel Informationon 03-06 [facility] TSH Qnon 03-06-2024 Interpretation and review of laboratory results Normal [facility] BASIC METABOLIC PANELon Anion gap [Moles/Vol] 9 mmol/L Normal 3-13 [facility] Comment on above: Performed By: #### L AB15, [id number], HPR520, [id number] ####Medical Technician Assistant: NICOLE BOWERS ([phone])[facility] KAMALJIT FLOWERS (SWRLAB)[address] [place] [address] Calcium [Mass/Vol] 8.9 mg/dL Normal 8.4-10.4 [facility] Comment on above: Performed By: #### L AB15, [id number], ZCG386, [id number] ####Medical Technician Assistant: NICOLE BOWERS ([phone])[facility]IN[facility] [place] (SWRLAB)[address] [place] [address] [place] Chloride [Moles/Vol] 104 mmol/L Normal 98-107 [facility] Comment on above: Performed By: #### L AB15, [id number], HFZ635, IRZ533 ####Medical Technician Assistant: NICOLE BOWERS ([phone])[facility]IN[facility] YEH RITTMAN (SWRLAB)[address] [place] [address] [place] CO2 [Moles/Vol] 25 mmol/L Normal 22-30 [facility] Comment on above: Performed By: #### L AB15, [id number], QGB905, DLY608 ####Medical Technician Assistant: NICOLE BOWERS ([phone])[facility] [place] (SWRLAB)[address] [place] [address] [place] Creatinine [Mass/Vol] 1.65 mg/dL High 0.66-1.25 [facility] Comment on above: Performed By: #### L AB15, [id number], YNB155, JQD120 ####Medical Technician Assistant: NICOLE BOWERS ([phone])[facility] [place] (SWRLAB)[address] [place] [address] [place] GLOMERULAR FILTRATION RATE ML/MIN/1.73 SQ M.PREDICTED 51.5 mL/min/1.73m*2 Low >60.0 [facility] Comment on above: Result Comment: Calc ulation based on the Chronic Kidney Disease Epidemiology Collaboration (CKD-EPI) equation refit without adjustment for race Performed By: #### L AB15, [id number], IAF751, WOD528 ####Medical Technician Assistant: NICOLE BOWERS ([phone])[facility] [place] [place] (SWRLAB)[address] [place] [address] [place] Glucose [Mass/Vol] 103 mg/dL High 70-100 [facility] Comment on above: Performed By: #### L AB15, [id number], KSP723, TIB983 ####Medical Technician Assistant: NICOLE BOWERS ([phone])[facility]IN[facility] [place] (SWRLAB)[address] Potassium [Moles/Vol] 3.9 mmol/L Normal 3.5-5.1 [facility] Comment on above: Performed By: #### L AB15, MAJ655, NOZ843, VYY157 ####Medical Technician Assistant: NICOLE BOWERS ([phone])[facility] [place] (SWRLAB)[address] Sodium [Moles/Vol] 138 mmol/L Normal 135-145 [facility] Comment on above: Performed By: #### L AB15, CHF715, [id number], DOG484 ####Medical Technician Assistant: NICOLE BOWERS ([phone])[facility] [place] (SWRLAB)[address] [place] [address] Urea nitrogen [Mass/Vol] 22 mg/dL High 9-20 [facility] Comment on above: Performed By: #### L AB15, [id number], EQM245, [id number] ####Medical Technician Assistant: NICOLE BOWERS ([phone])[facility] A[place]ERAN (SWRLAB)[address] [place] [address] Basic metabolic 1998 panelon 03-05-2024 Anion gap [Moles/Vol] 9 mmol/L 3 - 13 mmol/L [facility] Calcium [Mass/Vol] 8.9 mg/dL 8.4 - 10. 4 mg/dL [facility] Chloride [Moles/Vol] 104 mmol/L 98 - 10 7 mmol/L [facility] CO2 [Moles/Vol] 25 mmol/L 22 - 30 mmol/L [facility] Creatinine [Mass/Vol] 1.65 mg/dL High 0.66 - 1.25 mg/dL [facility] GFR/1.73 sq M.predicted (S/P/Bld) [Vol rate/Area] 51.5 mL/min Low - PINF [facility] Comment on above: Calculation based on the Chronic Kidney Disease Epidemiology Collaboration (CKD-EPI) equation refit without adjustment for race Glucose [Mass/Vol] 103 mg/dL High 70 - 100 mg/dL [facility] Interpretation and review of laboratory results Abnormal [facility] Potassium [Moles/Vol] 3.9 mmol/L 3.5 - 5.1 mmol/L [facility] Sodium [Moles/Vol] 138 mmol/L 135 - 145 mmol/L [facility] Urea nitrogen [Mass/Vol] 22 mg/dL High 9 - 20 mg/dL [facility] CBC (HEMOGRAM)on 03-05-2024 Erythrocyte distribution width (RBC) [Ratio] 11.7 % Normal 11.5-15.0 [facility] Comment on above: Performed By: #### L [id number] ####Medical Technician Assistant: NICOLE BOWERS ([phone])[facility] [place] (SWRLAB)[address] [place] [address] Hematocrit (Bld) [Volume fraction] 39.2 % Low 40.0-52.0 [facility] Comment on above: Performed By: #### L AB294 ####Medical Technician Assistant: NICOLE BOWERS ([phone])[facility] KAMALJIT RITTMAN (SWRLAB)[address] [place] [address] Hemoglobin (Bld) [Mass/Vol] 13.4 g/dL Normal 13.0-18.0 [facility] Comment on above: Performed By: #### L AB294 ####Medical Technician Assistant: NICOLE BOWERS ([phone])[facility] YEH RITTMAN (SWRLAB)[address] [place] [address] MCH (RBC) [Entitic mass] 31.8 pg Normal 26.0-34.0 [facility] Comment on above: Performed By: #### L AB294 ####Medical Technician Assistant: NICOLE BOWERS ([phone])[facility] [place] (SWRLAB)[address] [place] [address] MCHC 34.2 % Normal 30.5-36.0 [facility] Comment on above: Performed By: #### L [id number] ####Medical Technician Assistant: NICOLE BOWERS ([phone])[facility] (SWRLAB)[address] [place] [address] MCV (RBC) [Entitic vol] 93.1 fL Normal 77.0-99.0 [facility] Comment on above: Performed By: #### L AB294 ####Medical Technician Assistant: NICOLE BOWERS ([phone])[facility] [place] (SWRLAB)[address] [place] [address] Platelet mean volume (Bld) [Entitic vol] 9.2 fL Normal 9.0-12.7 [facility] Comment on above: Result Comment: MPV is a calculated measurement using platelet volume ratio Performed By: #### L AB294 ####Medical Technician Assistant: NICOLE BOWERS ([phone])[facility] FLORE[place]TMAN (SWRLAB)[address] [place] [address] [place] Platelets (Bld) [#/Vol] 313 10*3/uL Normal 140-440 [facility] Comment on above: Performed By: #### L AB294 ####Medical Technician Assistant: NICOLE BOWERS ([phone])[facility] [employer] (SWRLAB)[address] [place] [address] [place] RBC (Bld) [#/Vol] 4.21 10*6/uL Low 4.40-5.90 [facility] Comment on above: Performed By: #### L AB294 ####Medical Technician Assistant: NICOLE BOWERS ([phone])[facility] [employer] (SWRLAB)[address] [place] [address] [place] WBC (Bld) [#/Vol] 5.5 10*3/uL Normal 3.6-10.7 [facility] Comment on above: Performed By: #### L [id number] ####Medical Technician Assistant: NICOLE BOWERS ([phone])[facility] [employer]H RIT[place] (SWRLAB)[address] CBC panel Auto (Bld)on 03-05 Erythrocyte distribution width (RBC) [Ratio] 11.7 % 11.5 - 15.0 % [facility] Hematocrit (Bld) [Volume fraction] 39.2 % Low 40.0 - 52.0 % [facility] Hemoglobin (Bld) [Mass/Vol] 13.4 g/dL 13.0 - 18.0 g/dL [facility] Interpretation and review of laboratory results Abnormal [facility] MCH (RBC) [Entitic mass] 31.8 pg 26.0 - 34.0 pg [facility] MCHC (RBC) [Mass/Vol] 34.2 % 30.5 - 36.0 % [facility] MCV (RBC) [Entitic vol] 93.1 fL 77.0 - 99.0 fL [facility] Platelet mean volume (Bld) [Entitic vol] 9.2 fL 9.0 - 12.7 fL [facility] Comment on above: MPV is a calculated measurement using platelet volume ratio Platelets (Bld) [#/Vol] 313 10*3/uL 140 - 440 10*3/uL [facility] RBC (Bld) [#/Vol] 4.21 10*6/uL Low 4.40 - 5.9 0 10*6/uL [facility] WBC (Bld) [#/Vol] 5.5 10*3/uL 3.6 - 10.7 10*3/uL [facility] CT CHEST ANGIOGRAM W AND/OR WO IV CONTRASTon 03-05-2024 CT CHEST ANGIOGRAM W AND/OR WO IV CONTRAST Normal [facility] CTA Chest vessels WO and W c [...] MD Electronically Signed Date/Time: 03/05/2024 11:53 PM [facility] Patient Name: CARLO MEDINA [...] unremarkable. Degenerative change in the thoracic spine. [facility] Nir Shen MD - 03/05/2024 Patient [...] Electronically Signed Date/Time: 03/05/2024 11:53 PM EDT [facility] Radiology Study observation (narrative) [facility] D-DIMER,QUANTITATIVEon 03-05 D-DIMER, INNOVANCE 1.03 mg/L High <0.50 [facility] Comment on above: Result Comment: ALEJANDRO Aleman COMMENTS:[employer] D-Dimer values of <0.50 mg/L FEU can be used in combination with a pre-test probability model (e.g. Well's) to exclude pulmonary embolism (PE) disease, as well as an aid in the diagnosis of deep vein thrombosis (DVT). Performed By: #### L [id number] ####Medical Technician Assistant: NICOLE BOWERS ([phone])[facility]ITALKAMALJITSHORTY FL[facility] ([facility] [place] [address] ECG 12-LEADon 03-05-2024 ECG 12-LEAD IMPRESSION: Sinus tachycardia Left atrial enlargement LVH with secondary repolarization abnormality Electronically Signed On 03-05-2024 21:54:46 EDT by Shane Stern Normal [facility] ED Nursing Noteon 03-05-2024 ED Nursing Note 44 m to ED c/o sob since 7pm. Pt reports he was seen at [facility] for same complaints last week. Was d/c'd Friday with new diagnosis of CHF. Pt reports SOB improved while he was up walking. Pt arrived at 88% on rm air. Placed on 3L nc. Normal [facility] ED Nursing Note Pt removed by physician with sats maintained. Per Dr. Julien, pt is permitted to be driven by private car. IV access maintained intact in right AC with a coban wrap Marycarmen Dias RN 03/06/24 0830 Normal [facility] ED Nursing Note Normal [facility] ED Provider Noteon ED Provider Note Normal [facility] D-dimer FEU (PPP) [Ma ss/Vol]on 03-05-2024 Interpretation and review of laboratory results Abnormal [facility] D-Dimer values of <0.50 mg/L FEU can be used in combination with a pre-test probability model (e.g. Well's) to exclude pulmonary embolism (PE) disease, as well as an aid in the diagnosis of deep vein thrombosis (DVT). [facility] Laboratory - Chemistry and C hemistry - challengeon 03-05-2024 Troponin I.cardiac [Mass/Vol] 0.019 ng/mL NINF - 0.034 ng/mL [facility] Laboratory - Coagulationon 0 03-05-2024 Fibrin D-dimer FEU (PPP) [Mass/Vol] 1.03 mg/L High NINF - 0.50 mg/L [facility] - Microbiology an d Antimicrobial susceptibilityon 03-05-2024 FLUAV RNA DEENA+probe Ql (Resp) Not detected Not Detected [facility] FLUBV RNA DEENA+probe Ql (Resp) Not detected Not Detected [facility] RSV RNA DEENA+probe Ql (Resp) Not detected Not Detected [facility] SARS-CoV-2 (COVID-19) RNA DEENA+probe Ql (Resp) Not detected Not Detected [facility] SARS-CoV-2 (COVID-19) RNA DEENA+probe Ql (Unsp spec) Methodology: real-time, RT-PCR The SARS-CoV-2, Flu A/B, and RSV Combo assay is intended for in vitro diagnostic use under the FDA Emergency Use Authorization (EUA). This test has not been FDA cleared or approved. In compliance with this authorization, please visit www.fda.gov/media/007 435/download or www.fda.gov/media/167 436/download to access the applicable information sheets. [facility] NT PRO BNPon 03-05-2024 Natriuretic peptide B (Bld) [Mass/Vol] 9740 pg/mL High <20-100 [facility] Comment on above: Performed By: #### L AB15, [id number], [id number], [id number] ####Medical Technician Assistant: NICOLE BOWERS ([phone])[facility] FLOWERS ([address] Natriuretic peptide B [Mass/ Vol]on 03-05-2024 Interpretation and review of laboratory results Abnormal [facility] Natriuretic peptide B (Bld) [Mass/Vol] 9740 pg/mL High <20 - 100 [facility]ide[facility] No Panel Informationon 03-05 [facility] P Ar[place] 54 degrees [facility] KS Interval 148 ms [facility] QRS [place] -11 degrees [facility] QRSD Interval 101 ms [facility] QT Interval 339 ms [facility] QTC Interval 463 ms [facility] T Wave [place] 117 degrees [facility] Sinus tachycardia Left atrial enlargement LVH with secondary repolarization abnormality Electronically Signed On 03-05-2024 21:54:46 EDT by Shane Stern CV Shane Perry MD - 03/05/2024 IMPRESSION: Sinus tachycardia Left atrial enlargement LVH with secondary repolarization abnormality Electronically Signed On 03-05-2024 21:54:46 EDT by Shane Stern [facility] SARS-COV-2, FLU A/B, AND RSV COMBOon 03-05-2024 SARS-CoV-2 (COVID-19) RNA DEENA+probe Ql (Unsp spec) Normal [facility] Comment on above: Performed By: #### L [id number] ####Medical Technician Assistant: NICOLE BOWERS ([phone])[facility]IN[facility] FLOWERS ([facility] DIST[facility])[address] [place] [address] [place] SARS-CoV-2, Flu A/B, and RSV Comboon 03-05-2024 Interpretation and review of laboratory results Normal [facility] THYROID STIMULATING HORMONEo n 03-05-2024 THYROID STIMULATING HORMONE 4.380 uIU/mL Normal 0.465-4.680 [facility] Comment on above: Performed By: #### L AB15, [id number], [id number], [id number] ####Medical Technician Assistant: NICOLE BOWERS ([phone])[facility] KAMALJITSHORTY FLOREZTMAN (SWRLAB)[address] [place] [address] [place] TROPONIN Ion 03-05-2024 Troponin I.cardiac [Mass/Vol] 0.019 ng/mL Normal <0.034 [facility] Comment on above: Result Comment: ALEJANDRO Aleman COMMENTS:Patients with high levels of Biotin oral intake (ie >5 mg/day) may have falsely decreased Troponin levels. Performed By: #### L AB15, GSF458, RVR156, [id number] ####Medical Technician Assistant: NICOLE BOWERS ([phone])[facility]ITALKAMALJIT [employer] StudiosTMAN (SWRLAB)[address] [place] [address] [place] Troponin I.cardiac [Mass/Vol ]on 03-05-2024 Interpretation and review of laboratory results Normal [facility] Patients with high levels of Biotin oral intake (ie >5 mg/day) may have falsely decreased Troponin levels. [facility] Vital signson 03-05-2024 Heart rate 112 /min bpm [facility] XR Chest Single viewon 03-05 1. Findings compatible with vascular congestion and interstitial edema, in the appropriate clinical setting, versus nonspecific postinflammatory change and bronchitis, with perihilar infiltrates, similar to comparison. Clinical correlation and follow-up as indicated. Report Dictated on Electronically Signed By: Nir Shen MD Electronically Signed Date/Time: 03/05/2024 10:35 PM [facility] Patient Name: CARLO MEDINA : 1980 [...] change again noted in the thoracic spine. [facility] Nir Shen MD - 03/05/2024 [facility] 1980 [id number] Exam Date/Time: 03/05/2024 22:20 Procedure: XR CHEST [...] Electronically Signed Date/Time: 03/05/2024 10:35 PM EDT [facility] Study observation (narrative) [facility] XR Chest Single viewOrdered By: Nir Shen on 03-05-2024 [facility] Work Phone: 36on 03-04-2024 36 Unable to contact patient X2 Normal [facility]ide[facility] 36on 03-02-2024 36 S: Patient admitted to: [facility] 02/28/24 B: Discharged on : 03/01/24 A: Hospital follow up call initiated to discuss any medication changes, follow up appointments and discharge instructions: Shortness of breath R: No contact x 1 at : [phone] Normal [facility] 36 Normal [facility] BASIC METABOLIC PANELon 09-0 Anion gap [Moles/Vol] 7 mmol/L Normal 3-13 [facility] Comment on above: Performed By: #### L AB15 ####Medical Technician Assistant: LESLEE HERNANDEZ ([phone])[facility]INKeyon LELOALLISON (SBHLAB)[address] Calcium [Mass/Vol] 8.7 mg/dL Normal 8.4-10.4 [facility] Comment on above: Performed By: #### L AB15 ####Medical Technician Assistant: LESLEE HERNANDEZ ([phone])[facility]INKeyon LINDALLISON (SBHLAB)[address] Chloride [Moles/Vol] 106 mmol/L Normal 98-107 [facility] Comment on above: Performed By: #### L AB15 ####Medical Technician Assistant: LESLEE HERNANDEZ ([phone])[facility]INKeyon BARBEFRAÍNN (SBHLAB)[address] CO2 [Moles/Vol] 23 mmol/L Normal 22-30 [facility] Comment on above: Performed By: #### L AB15 ####Medical Technician Assistant: LESLEE HERNANDEZ ([phone])[facility]INKeyon BARBALLISON (SBHLAB)[address] Creatinine [Mass/Vol] 1.56 mg/dL High 0.66-1.25 [facility] Comment on above: Performed By: #### L AB15 ####Medical Technician Assistant: LESLEE HERNANDEZ ([id number])[facility]ITALEFRAÍNN (SBHLAB)[address] GLOMERULAR FILTRATION RATE ML/MIN/1.73 SQ M.PREDICTED 55.1 mL/min/1.73m*2 Low >60.0 [facility] Comment on above: Result Comment: Calc ulation based on the Chronic Kidney Disease Epidemiology Collaboration (CKD-EPI) equation refit without adjustment for race Performed By: #### L AB15 ####Medical Technician Assistant: LESLEE HERNANDEZ ([phone])[facility]INKeyon MCFADDENMarguerite (SBHLAB)[address] Glucose [Mass/Vol] 103 mg/dL High 70-100 [facility] Comment on above: Performed By: #### L AB15 ####Medical Technician Assistant: LESLEE HERNANDEZ ([phone])[facility]INKey[place] (SBHLAB)[address] Potassium [Moles/Vol] 3.7 mmol/L Normal 3.5-5.1 [facility] Comment on above: Performed By: #### L AB15 ####Medical Technician Assistant: LESLEE HERNANDEZ ([phone])[facility]INKeyon BANNERMarguerite (SBHLAB)[address] Sodium [Moles/Vol] 136 mmol/L Normal 135-145 [facility] Comment on above: Performed By: #### L AB15 ####Medical Technician Assistant: LESLEE HERNANDEZ ([id number])[facility] (SBHLAB)[address] Urea nitrogen [Mass/Vol] 22 mg/dL High 9-20 [facility] Comment on above: Performed By: #### L AB15 ####Medical Technician Assistant: LESLEE HERNANDEZ ([phone])[facility] (SBHLAB)[address] Basic metabolic 1998 panelon 03-01-2024 Anion gap [Moles/Vol] 7 mmol/L 3 - 13 mmol/L [facility] Calcium [Mass/Vol] 8.7 mg/dL 8.4 - 10. 4 mg/dL [facility] Chloride [Moles/Vol] 106 mmol/L 98 - 10 7 mmol/L [facility] CO2 [Moles/Vol] 23 mmol/L 22 - 30 mmol/L [facility] Creatinine [Mass/Vol] 1.56 mg/dL High 0.66 - 1.25 mg/dL [facility] GFR/1.73 sq M.predicted (S/P/Bld) [Vol rate/Area] 55.1 mL/min Low - PINF [facility] Comment on above: Calculation based on the Chronic Kidney Disease Epidemiology Collaboration (CKD-EPI) equation refit without adjustment for race Glucose [Mass/Vol] 103 mg/dL High 70 - 100 mg/dL [facility] Interpretation and review of laboratory results Abnormal [facility] Potassium [Moles/Vol] 3.7 mmol/L 3.5 - 5.1 mmol/L [facility] Sodium [Moles/Vol] 136 mmol/L 135 - 145 mmol/L [facility] Urea nitrogen [Mass/Vol] 22 mg/dL High 9 - 20 mg/dL [facility] CBC W Auto Differential pane l (Bld)on 03-01-2024 Basophils (Bld) [#/Vol] 0.0 10*3/uL 0.0 - 0.2 10*3/uL [facility] Basophils/100 WBC (Bld) 0.4 % 0.0 - 2.0 % [facility] Eosinophils (Bld) [#/Vol] 0.1 10*3/uL 0.0 - 0.5 10*3/uL [facility] Eosinophils/100 WBC (Bld) 2.4 % 0.0 - 6.0 % [facility] Erythrocyte distribution width (RBC) [Ratio] 11.8 % 11.5 - 15.0 % [facility] Hematocrit (Bld) [Volume fraction] 40.3 % 40.0 - 52.0 % [facility] Hemoglobin (Bld) [Mass/Vol] 13.5 g/dL 13.0 - 18.0 g/dL [facility] Immature granulocytes (Bld) [#/Vol] 0.0 10*3/uL NINF - 0.1 10*3/uL [facility] Immature granulocytes/100 WBC (Bld) 0.2 % 0.0 - 2.0 % [facility] Interpretation and review of laboratory results Abnormal [facility] Lymphocytes (Bld) [#/Vol] 2.1 10*3/uL 1.0 - 4.3 10*3/uL [facility] Lymphocytes/100 WBC (Bld) 42.4 % 15.0 - 45.0 % [facility] MCH (RBC) [Entitic mass] 31.3 pg 26.0 - 34.0 pg [facility] MCHC (RBC) [Mass/Vol] 33.5 % 30.5 - 36.0 % [facility] MCV (RBC) [Entitic vol] 93.3 fL 77.0 - 99.0 fL [facility] Monocytes (Bld) [#/Vol] 0.5 10*3/uL 0.0 - 0.9 10*3/uL [facility] Monocytes/100 WBC (Bld) 10.1 % 5.0 - 13.0 % [facility] Neutrophils (Bld) [#/Vol] 2.2 10*3/uL 1.8 - 7.5 10*3/uL [facility] Neutrophils/100 WBC (Bld) 44.5 % 38.0 - 82.0 % [facility] Nucleated RBC/100 WBC (Bld) [Ratio] 0.0 % [facility] Platelet mean volume (Bld) [Entitic vol] 9.6 fL 9.0 - 12.7 fL [facility] Platelets (Bld) [#/Vol] 280 10*3/uL 140 - 440 10*3/uL [facility] RBC (Bld) [#/Vol] 4.32 10*6/uL Low 4.40 - 5.9 0 10*6/uL [facility] WBC (Bld) [#/Vol] 4.9 10*3/uL 3.6 - 10.7 10*3/uL [facility] CBC WITH AUTO DIFFERENTIALon 03-01-2024 Basophils (Bld) [#/Vol] 0.0 10*3/uL Normal 0.0-0.2 [facility] Comment on above: Performed By: #### L [id number] ####Medical Technician Assistant: LESLEE HERNANDEZ ([phone])[facility] AVONMarguerite (SBHLAB)[address] Basophils/100 WBC (Bld) 0.4 % Normal 0.0-2.0 [facility] Comment on above: Performed By: #### L [id number] ####Medical Technician Assistant: LESLEE HERNANDEZ ([phone])[facility] (SBHLAB)[address] [place] [address] [place] Eosinophils (Bld) [#/Vol] 0.1 10*3/uL Normal 0.0-0.5 [facility] Comment on above: Performed By: #### L [id number] ####Medical Technician Assistant: LESLEE HERNANDEZ ([phone])[facility] ([facility] Eosinophils/100 WBC (Bld) 2.4 % Normal 0.0-6.0 [facility] Comment on above: Performed By: #### L [id number] ####Medical Technician Assistant: LESLEE HERNANDEZ ([phone])[facility] ([facility])[address] Erythrocyte distribution width (RBC) [Ratio] 11.8 % Normal 11.5-15.0 [facility] Comment on above: Performed By: #### L [id number] ####Medical Technician Assistant: LESLEE TURKTYRONE ([phone])[facility] ([facility])[address] [place] [address] Hematocrit (Bld) [Volume fraction] 40.3 % Normal 40.0-52.0 [facility] Comment on above: Performed By: #### L [id number] ####Medical Technician Assistant: LESLEE HERNANDEZ ([phone])[facility] ([facility])[address] [place] [address] Hemoglobin (Bld) [Mass/Vol] 13.5 g/dL Normal 13.0-18.0 [facility] Comment on above: Performed By: #### L [id number] ####Medical Technician Assistant: LESLEE HERNANDEZ ([phone])[facility] ([facility])[address] IMMATURE GRANS % 0.2 % Normal 0.0-2.0 [facility] Comment on above: Performed By: #### L [id number] ####Medical Technician Assistant: LESLEE HERNANDEZ ([phone])[facility] ([facility])[address] IMMATURE GRANS ABSOLUTE 0.0 10*3/uL Normal <0.1 [facility] Comment on above: Performed By: #### L [id number] ####Medical Technician Assistant: LESLEE HERNANDEZ ([phone])[facility] [place] (SBHLAB)[address] Lymphocytes (Bld) [#/Vol] 2.1 10*3/uL Normal 1.0-4.3 [facility] Comment on above: Performed By: #### L [id number] ####Medical Technician Assistant: LESLEE HERNANDEZ ([phone])[facility] [place] (SBHLAB)[address] Lymphocytes/100 WBC (Bld) 42.4 % Normal 15.0-45.0 [facility] Comment on above: Performed By: #### L [id number] ####Medical Technician Assistant: LESLEE HERNANDEZ ([phone])[facility] [place] (SBHLAB)[address] MCH (RBC) [Entitic mass] 31.3 pg Normal 26.0-34.0 [facility] Comment on above: Performed By: #### L [id number] ####Medical Technician Assistant: LESLEE HERNANDEZ ([phone])[facility] [place] (SBHLAB)[address] [place] [address] MCHC 33.5 % Normal 30.5-36.0 [facility] Comment on above: Performed By: #### L [id number] ####Medical Technician Assistant: LESLEE HERNANDEZ ([phone])[facility] [place] (SBHLAB)[address] [place] [address] MCV (RBC) [Entitic vol] 93.3 fL Normal 77.0-99.0 [facility] Comment on above: Performed By: #### L [id number] ####Medical Technician Assistant: LESLEE HERNANDEZ ([phone])[facility] [place] (SBHLAB)[address] Monocytes (Bld) [#/Vol] 0.5 10*3/uL Normal 0.0-0.9 [facility] Comment on above: Performed By: #### L [id number] ####Medical Technician Assistant: LESLEE HERNANDEZ ([id number])[facility] [place] (SBHLAB)[address] Monocytes/100 WBC (Bld) 10.1 % Normal 5.0-13.0 [facility] Comment on above: Performed By: #### L [id number] ####Medical Technician Assistant: LESLEE HERNANDEZ ([phone])[facility] [place] (SBHLAB)[address] NEUTROPHILS ABSOLUTE 2.2 10*3/uL Normal 1.8-7.5 [facility] Comment on above: Performed By: #### L [id number] ####Medical Technician Assistant: LESLEE HERNANDEZ ([id number])[facility] [place] (SBHLAB)[address] Neutrophils/100 WBC (Bld) 44.5 % Normal 38.0-82.0 [facility] Comment on above: Performed By: #### L [id number] ####Medical Technician Assistant: LESLEE HERNANDEZ ([phone])[facility] [place] (SBHLAB)[address] NRBC 0.0 /100 WBCs Normal 0.0-2.0 [facility] Comment on above: Performed By: #### L [id number] ####Medical Technician Assistant: LESLEE HERNANDEZ ([id number])[facility] [place] (SBHLAB)[address] Platelet mean volume (Bld) [Entitic vol] 9.6 fL Normal 9.0-12.7 [facility] Comment on above: Performed By: #### L [id number] ####Medical Technician Assistant: LESLEE HERNANDEZ ([phone])[facility] [place] (SBHLAB)[address] [place] [address] [place] Platelets (Bld) [#/Vol] 280 10*3/uL Normal 140-440 [facility] Comment on above: Performed By: #### L [id number] ####Medical Technician Assistant: LESLEE HERNANDEZ ([phone])ELLIOTKeyon LELOALLISON (SBHLAB)[address] RBC (Bld) [#/Vol] 4.32 10*6/uL Low 4.40-5.90 [facility] Comment on above: Performed By: #### L [id number] ####Medical Technician Assistant: LESLEE HERNANDEZ ([id number])[facility] LELOALLISON (SBHLAB)[address] WBC (Bld) [#/Vol] 4.9 10*3/uL Normal 3.6-10.7 [facility] Comment on above: Performed By: #### L [id number] ####Medical Technician Assistant: LESLEE HERNANDEZ ([phone])[facility]IN[facility] LELOALLISON (SBHLAB)[address] Consulton 03-01-2024 Consult Normal [facility] HEMOGLOBIN A1Con 03-01-2024 Glucose [Mass/Vol] 97 mg/dL Normal [facility] Comment on above: Performed By: #### L AB90 ####Medical Technician Assistant: LESLEE HERNANDEZ ([phone])[facility]INKeyon LELOALLISON (SBHLAB)[address] [place] [address] HbA1c (Bld) [Mass fraction] 5.0 % Normal <5.7 [facility] Comment on above: Result Comment: Norm al less than 5.7%Prediabetes 5.7% to 6.4%Diabetes 6.5% or higher--HgbA1C levels may not be accurate in patients who have renal disease, received recent blood transfusions, are anemic, or who have dyshemoglobinemia. Performed By: #### L AB90 ####Medical Technician Assistant: LESLEE HERNANDEZ ([phone])[facility] LELOALLISON (SBHLAB)[address] [place] [address] [place] IDNon 03-01-2024 IDN Normal [facility] IDN The patient is Moderately Stable - Low risk of patient condition declining or worsening The patient's goals for the shift include rest The clinical goals for the shift include pt education Normal [facility] Laboratory - Chemistry and C hemistry - challengeon 03-01-2024 Average glucose Estimated from glycated hemoglobin (Bld) [Mass/Vol] 97 mg/dL [facility] - Hematology and Cell countson 03-01-2024 HbA1c (Bld) [Mass fraction] 5.0 % NINF - 5.7 % [facility] Comment on above: Normal less than 5.7 % Prediabetes 5.7% to 6.4% Diabetes 6.5% or higher --HgbA1C levels may not be accurate in patients who have renal disease, received recent blood transfusions, are anemic, or who have dyshemoglobinemia. No Panel Informationon 03-01 [facility] Nursing Noteon 03-01-2024 Nursing Note Discharge instructions given to patient and questions were addressed. Encouraged patient to follow up with cardiology and new PCP scheduled with Family Medicine. Normal [facility] Progress Noteon 03-01-2024 Progress Note Normal [facility] Progress Note Normal [facility] BASIC METABOLIC PANELon Anion gap [Moles/Vol] 8 mmol/L Normal 3-13 [facility] Comment on above: Performed By: #### L AB15, LAB18, [id number] ####Medical Technician Assistant: LESLEE HERNANDEZ ([id number])[facility] (SBHLAB)[address] Calcium [Mass/Vol] 8.8 mg/dL Normal 8.4-10.4 [facility] Comment on above: Performed By: #### L AB15, LAB18, [id number] ####Medical Technician Assistant: LESLEE HERNANDEZ ([phone])[facility] (SBHLAB)[address] Chloride [Moles/Vol] 105 mmol/L Normal 98-107 [facility] Comment on above: Performed By: #### L AB15, LAB18, [id number] ####Medical Technician Assistant: LESLEE TORRESCER ([phone])[facility] (SBHLAB)[address] CO2 [Moles/Vol] 24 mmol/L Normal 22-30 [facility] Comment on above: Performed By: #### Pedro AB15, LAB18, [id number] ####Medical Technician Assistant: LESLEE HERNANDEZ ([phone])[facility] (SBHLAB)[address] Creatinine [Mass/Vol] 1.58 mg/dL High 0.66-1.25 [facility] Comment on above: Performed By: #### Pedro AB15, LAB18, [id number] ####Medical Technician Assistant: LESLEE HERNANDEZ ([id number])[facility] GLOMERULAR FILTRATION RATE ML/MIN/1.73 SQ M.PREDICTED 54.3 mL/min/1.73m*2 Low >60.0 [facility] Comment on above: Result Comment: Calc ulation based on the Chronic Kidney Disease Epidemiology Collaboration (CKD-EPI) equation refit without adjustment for race Performed By: #### Pedro AB15, LAB18, [id number] ####Medical Technician Assistant: LESLEE HERNANDEZ ([id number])[facility] (SBHLAB)[address] Glucose [Mass/Vol] 117 mg/dL High 70-100 [facility] Comment on above: Performed By: #### Pedro AB15, LAB18, [id number] ####Medical Technician Assistant: LESLEE HERNANDEZ ([phone])[facility] ([facility])[address] [place] [address] [place] Potassium [Moles/Vol] 3.8 mmol/L Normal 3.5-5.1 [facility] Comment on above: Performed By: #### Pedro AB15, LAB18, [id number] ####Medical Technician Assistant: LESLEE HERNANDEZ ([phone])[facility] [place] (SBHLAB)[address] Sodium [Moles/Vol] 136 mmol/L Normal 135-145 [facility] Comment on above: Performed By: #### L AB15, LAB18, [id number] ####Medical Technician Assistant: LESLEE HERNANDEZ ([phone])[facility] (SBHLAB)[address] Urea nitrogen [Mass/Vol] 19 mg/dL Normal 9-20 [facility] Comment on above: Performed By: #### L AB15, LAB18, [id number] ####Medical Technician Assistant: LESLEE HERNANDEZ ([phone])[facility] (SBHLAB)[address] Basic metabolic 1998 panelon 02-29-2024 Anion gap [Moles/Vol] 10 mmol/L 3 - 13 mmol/L [facility] Calcium [Mass/Vol] 9.1 mg/dL 8.4 - 10. 4 mg/dL [facility] Chloride [Moles/Vol] 104 mmol/L 98 - 10 7 mmol/L [facility] CO2 [Moles/Vol] 25 mmol/L 22 - 30 mmol/L [facility] Creatinine [Mass/Vol] 1.66 mg/dL High 0.66 - 1.25 mg/dL [facility] GFR/1.73 sq M.predicted (S/P/Bld) [Vol rate/Area] 51.2 mL/min Low - PINF [facility] Comment on above: Calculation based on the Chronic Kidney Disease Epidemiology Collaboration (CKD-EPI) equation refit without adjustment for race Glucose [Mass/Vol] 118 mg/dL High 70 - 100 mg/dL [facility] Interpretation and review of laboratory results Abnormal [facility] Potassium [Moles/Vol] 4.2 mmol/L 3.5 - 5.1 mmol/L [facility] Sodium [Moles/Vol] 139 mmol/L 135 - 145 mmol/L [facility] Urea nitrogen [Mass/Vol] 19 mg/dL 9 - 20 mg/dL [facility] Anion gap [Moles/Vol] 8 mmol/L 3 - 13 mmol/L [facility] Calcium [Mass/Vol] 8.8 mg/dL 8.4 - 10. 4 mg/dL [facility] Chloride [Moles/Vol] 105 mmol/L 98 - 10 7 mmol/L [facility] CO2 [Moles/Vol] 24 mmol/L 22 - 30 mmol/L [facility] Creatinine [Mass/Vol] 1.58 mg/dL High 0.66 - 1.25 mg/dL [facility] GFR/1.73 sq M.predicted (S/P/Bld) [Vol rate/Area] 54.3 mL/min Low - PINF [facility] Comment on above: Calculation based on the Chronic Kidney Disease Epidemiology Collaboration (CKD-EPI) equation refit without adjustment for race Glucose [Mass/Vol] 117 mg/dL High 70 - 100 mg/dL [facility] Interpretation and review of laboratory results Abnormal [facility] Potassium [Moles/Vol] 3.8 mmol/L 3.5 - 5.1 mmol/L [facility] Sodium [Moles/Vol] 136 mmol/L 135 - 145 mmol/L [facility] Urea nitrogen [Mass/Vol] 19 mg/dL 9 - 20 mg/dL [facility] CARECOORDon 02-29-2024 CARECOORD Normal [facility] Consulton 02-29-2024 Consult Normal [facility] IDNon 02-29-2024 IDN The patient is Moderately Stable - Low risk of patient condition declining or worsening The patient's goals for the shift include see cardiology The clinical goals for the shift include hemodynamically stable Normal [facility] LIPID PANELon 02-29-2024 Cholesterol [Mass/Vol] 172 mg/dL Normal <200 [facility] Comment on above: Performed By: #### L AB15, LAB18, [id number] ####Medical Technician Assistant: LESLEE HERNANDEZ ([phone])[facility] ([facility])[address] [place] [address] Cholesterol in HDL [Mass/Vol] 28 mg/dL Low 40-60 [facility] Comment on above: Performed By: #### L AB15, LAB18, [id number] ####Medical Technician Assistant: LESLEE HERNANDEZ ([phone])[facility] (SBHLAB)[address] Cholesterol.total/Chol esterol in HDL [Mass ratio] 6 {ratio} Normal [facility] Comment on above: Result Comment: Ref Range:< 3 Low Risk for CHD3-6 Mod Risk for CHD> 6 High Risk for CHD Performed By: #### L AB15, LAB18, [id number] ####Medical Technician Assistant: LESLEE HERNANDEZ ([phone])[facility] (SBHLAB)[address] LOW DENSITY LIPOPROTEIN 126 mg/dL High 0-<100 [facility] Comment on above: Performed By: #### L AB15, LAB18, [id number] ####Medical Technician Assistant: LESLEE HERNANDEZ ([phone])[facility] (SBAB)[address] Triglyceride [Mass/Vol] 88 mg/dL Normal <150 [facility] Comment on above: Performed By: #### L AB15, LAB18, [id number] ####Medical Technician Assistant: LESLEE HERNANDEZ ([phone])[facility] (SBHLAB)[address] Laboratory - Chemistry and C hemistry - challengeon 02-29-2024 Troponin I.cardiac [Mass/Vol] 0.026 ng/mL NINF - 0.034 ng/mL [facility] Lipid 1996 panelon Cholesterol [Mass/Vol] 172 mg/dL NINF - 200 mg/dL [facility] Cholesterol in HDL [Mass/Vol] 28 mg/dL Low 40 - 60 mg/dL [facility] Cholesterol in LDL [Mass/Vol] 126 mg/dL High 0 - <100 [facility] Cholesterol.total/Chol esterol in HDL [Mass ratio] 6 {ratio} [facility] Comment on above: Ref Range: < 3 Low Risk for CHD 3-6 Mod Risk for CHD > 6 High Risk for CHD Interpretation and review of laboratory results Abnormal [facility] Triglyceride [Mass/Vol] 88 mg/dL NINF - 150 mg/dL [facility] Progress Noteon 02-29-2024 Progress Note Normal [facility] TROPONIN Ion 02-29-2024 Troponin I.cardiac [Mass/Vol] 0.026 ng/mL Normal <0.034 [facility] Comment on above: Result Comment: ALEJANDRO Aleman COMMENTS:Patients with high levels of Biotin oral intake (ie >5 mg/day) may have falsely decreased Troponin levels. Performed By: #### L AB15, LAB18, [id number] ####Medical Technician Assistant: LESLEE HERNANDEZ ([phone])[facility] (SBHLAB)[address] [place] [address] Troponin I.cardiac [Mass/Vol ]on 02-29-2024 Interpretation and review of laboratory results Normal [facility] Patients with high levels of Biotin oral intake (ie >5 mg/day) may have falsely decreased Troponin levels. [facility] Heart Transthoracicon Ao Root Index 1.52 cm/m2 [facility] h Aortic Root 3.3 cm [facility] Aortic Sinus Valsalva 3.2 cm [facility] Aortic Sinus Valsalva Index 1.47 cm/m2 [facility] Asc[facility] [place] Index 1.52 cm/m2 [facility] AV Area by Peak Velocity 3.3 cm2 [facility] AV Area by VTI 2.[address] [facility] th AV Mean Gradient 3 mmHg [facility] alth AV Mean Velocity 0.9 m/s [facility] He alth AV Peak Gradient 6 mmHg [facility] alth AV Peak Velocity 1.2 m/s [facility] alth AV Velocity Ratio 0.83 [facility] ealth AV VTI 19.1 cm [facility] EMILY/BSA Peak Velocity 1.5 cm2/m2 [facility] EMILY/BSA VTI 1.3 cm2/m2 [facility] E/E' Lateral 9.29 [facility] E/E' Ratio (Averaged) 9.29 [facility] E/E' Septal 9.29 [facility] EF BP 30 % Abnormal 55 - 100 % [facility] Est. RA Pressure 3 mmHg [facility] alth Fractional Shortening 2D 15 % 28 - 44 % [facility] Global Longitudinal Strain -7.1 % [facility] Interpretation and review of laboratory results Abnormal [facility] IVC Diameter 1.6 cm [facility] IVSd 1.2 cm Abnormal 0.6 - 1.0 cm [facility] [place] Diameter 4.4 cm [facility] LA Size Index 2.03 cm/m2 [facility] h LA Volume 2C 84 mL Abnormal 18 - 58 mL [facility] LA Volume 4C 78 mL Abnormal 18 - 58 mL [facility] LA Volume A/L [address] [facility] h LA Volume BP 84 mL Abnormal 18 - 58 mL [facility] LA Volume Index 2C 39 mL/m2 Abnormal 16 - 34 mL/m2 [facility] LA Volume Index 4C 36 mL/m2 Abnormal 16 - 34 mL/m2 [facility] LA Volume Index A/L 42 mL/m2 16 - 34 mL/m2 [facility] LA Volume Index BP 39 ml/m2 Abnormal 16 - 34 ml/m2 [facility] LA/AO Root Ratio 1.33 [facility] alth LV E' Lateral Velocity 7 cm/s [facility] LV E' Septal Velocity 7 cm/s [facility] LV EDV A2C 236 mL [facility] LV EDV A4C 278 mL [facility] LV EDV BP 259 mL Abnormal 67 - 155 mL [facility] LV EDV Index A2C 109 mL/m2 [facility] He alth LV EDV Index A4C 128 mL/m2 [facility] alth LV EDV Index BP 119 mL/m2 [facility] LV Ejection Fraction A2C 25 % [facility] LV Ejection Fraction A4C 35 % [facility] LV ESV A2C 178 mL [facility] LV ESV A4C 181 mL [facility] LV ESV BP 182 mL Abnormal 22 - 58 mL [facility] LV ESV Index A2C 82 mL/m2 [facility] alth LV ESV Index A4C 83 mL/m2 [facility] alth LV ESV Index BP 84 mL/m2 [facility] LV Mass 2D 350.2 g Abnormal 88 - 224 g [facility] LV Mass 2D Index 161.4 g/m2 Abnormal 49 - 115 g/m2 [facility] LV RWT Ratio 0.42 [facility] LVIDd 6.2 cm Abnormal 4.2 - 5.9 cm [facility] LVIDd Index 2.86 cm/m2 [facility] LVIDs 5.3 cm [facility] LVIDs Index 2.44 cm/m2 [facility] LVOT Area 3.8 cm2 [facility] LVOT Cardiac Output 5.2 liter/minute [facility] LVOT Diameter 2.[address] [facility] h LVOT Mean Gradient 2 mmHg [facility] LVOT Peak Gradient 4 mmHg [facility] LVOT Peak Velocity 1.0 m/s [facility] LVOT Stroke Volume Index 25.4 mL/m2 [facility] LVOT SV 55.1 ml [facility] LVOT VTI 14.5 cm [facility] LVOT:AV VTI Index 0.76 [facility] ealth LVPWd 1.3 cm Abnormal 0.6 - 1.0 cm [facility] MR VTI 149.6 cm [facility] MV A Velocity [facility].68 [facility] E Velocity 0.65 m/s [facility] MV E Wave Deceleration Time 225.7 ms [facility] MV E/A 0.96 [facility] MV Nyquist Velocity 36 cm/s [facility] MV Regurg Velocity PISA 5.2 m/s [facility] RA Area 4C 38.2 mL [facility] RA Area 4C 37.1 mL [facility] RV Basal Dimension 3.0 cm [facility] RV Free Wall Peak S' 16 cm/s [facility] RV Mid Dimension 1.7 cm [facility] alth RVSP 23 mmHg [facility] Sinotubular Junction 2.8 cm [facility] TAPSE 2.5 cm 1.7 cm [facility] TR Max Velocity 2.25 m/s [facility] lth TR Peak Gradient 20 mmHg [facility] alth Left Ventricle: Left ventricle is [...] prior study available for comparison CV CPACS [facility] BASIC METABOLIC PANELon 08-3 Anion gap [Moles/Vol] 10 mmol/L Normal 3-13 [facility] Comment on above: Performed By: #### L [id number], LAB15, [id number] ####Medical Technician Assistant: NICOLE BOWERS ([phone])[facility] (SWRLAB)[address] [place] [address] Calcium [Mass/Vol] 9.1 mg/dL Normal 8.4-10.4 [facility] Comment on above: Performed By: #### L [id number], LAB15, [id number] ####Medical Technician Assistant: NICOLE BOWERS ([phone])[facility] (SWRLAB)[address] [place] [address] [place] Chloride [Moles/Vol] 104 mmol/L Normal 98-107 [facility] Comment on above: Performed By: #### L [id number], LAB15, [id number] ####Medical Technician Assistant: NICOLE BOWERS ([phone])[facility] (SWRLAB)[address] [place] [address] [place] CO2 [Moles/Vol] 25 mmol/L Normal 22-30 [facility] Comment on above: Performed By: #### L [id number], LAB15, [id number] ####Medical Technician Assistant: NICOLE BOWERS ([phone])[facility] (SWRLAB)[address] [place] [address] [place] Creatinine [Mass/Vol] 1.66 mg/dL High 0.66-1.25 [facility] Comment on above: Performed By: #### L [id number], LAB15, [id number] ####Medical Technician Assistant: NICOLE BOWERS ([phone])[facility] (SWRLAB)[address] [place] [address] GLOMERULAR FILTRATION RATE ML/MIN/1.73 SQ M.PREDICTED 51.2 mL/min/1.73m*2 Low >60.0 [facility] Comment on above: Result Comment: Calc ulation based on the Chronic Kidney Disease Epidemiology Collaboration (CKD-EPI) equation refit without adjustment for race Performed By: #### L [id number], LAB15, [id number] ####Medical Technician Assistant: NICOLE BOWERS ([phone])[facility] (SWRLAB)[address] [place] [address] [place] Glucose [Mass/Vol] 118 mg/dL High 70-100 [facility] Comment on above: Performed By: #### L [id number], LAB15, [id number] ####Medical Technician Assistant: NICOLE BOWERS ([phone])[facility] (SWRLAB)[address] Potassium [Moles/Vol] 4.2 mmol/L Normal 3.5-5.1 [facility] Comment on above: Performed By: #### L [id number], LAB15, [id number] ####Medical Technician Assistant: NICOLE BOWERS ([phone])[facility] (SWRLAB)[address] Sodium [Moles/Vol] 139 mmol/L Normal 135-145 [facility] Comment on above: Performed By: #### L [id number], LAB15, [id number] ####Medical Technician Assistant: NICOLE BOWERS ([phone])[facility] (SWRLAB)[address] Urea nitrogen [Mass/Vol] 19 mg/dL Normal 9-20 [facility] Comment on above: Performed By: #### L [id number], LAB15, [id number] ####Medical Technician Assistant: NICOLE BOWERS ([phone])[facility] (SWRLAB)[address] CBC W Auto Differential pane l (Bld)on 02-28-2024 Basophils (Bld) [#/Vol] 0.0 10*3/uL 0.0 - 0.2 10*3/uL [facility] Basophils/100 WBC (Bld) 0.3 % 0.0 - 2.0 % [facility] Eosinophils (Bld) [#/Vol] 0.1 10*3/uL 0.0 - 0.5 10*3/uL [facility] Eosinophils/100 WBC (Bld) 2.0 % 0.0 - 6.0 % [facility] Erythrocyte distribution width (RBC) [Ratio] 11.7 % 11.5 - 15.0 % [facility] Hematocrit (Bld) [Volume fraction] 40.0 % 40.0 - 52.0 % [facility] Hemoglobin (Bld) [Mass/Vol] 13.5 g/dL 13.0 - 18.0 g/dL [facility] Immature granulocytes (Bld) [#/Vol] 0.0 10*3/uL NINF - 0.1 10*3/uL [facility] Immature granulocytes/100 WBC (Bld) 0.2 % 0.0 - 2.0 % [facility] Interpretation and review of laboratory results Abnormal [facility] Lymphocytes (Bld) [#/Vol] 1.7 10*3/uL 1.0 - 4.3 10*3/uL [facility] Lymphocytes/100 WBC (Bld) 26.3 % 15.0 - 45.0 % [facility] MCH (RBC) [Entitic mass] 31.1 pg 26.0 - 34.0 pg [facility] MCHC (RBC) [Mass/Vol] 33.8 % 30.5 - 36.0 % [facility] MCV (RBC) [Entitic vol] 92.2 fL 77.0 - 99.0 fL [facility] Monocytes (Bld) [#/Vol] 0.4 10*3/uL 0.0 - 0.9 10*3/uL [facility] Monocytes/100 WBC (Bld) 6.2 % 5.0 - 13.0 % [facility] Neutrophils (Bld) [#/Vol] 4.3 10*3/uL 1.8 - 7.5 10*3/uL [facility] Neutrophils/100 WBC (Bld) 65.0 % 38.0 - 82.0 % [facility] Nucleated RBC/100 WBC (Bld) [Ratio] 0.0 % [facility] Platelet mean volume (Bld) [Entitic vol] 9.3 fL 9.0 - 12.7 fL [facility] Comment on above: MPV is a calculated measurement using platelet volume ratio Platelets (Bld) [#/Vol] 279 10*3/uL 140 - 440 10*3/uL [facility] RBC (Bld) [#/Vol] 4.34 10*6/uL Low 4.40 - 5.9 0 10*6/uL [facility] WBC (Bld) [#/Vol] 6.6 10*3/uL 3.6 - 10.7 10*3/uL [facility] CBC WITH AUTO DIFFERENTIALon 02-28-2024 Basophils (Bld) [#/Vol] 0.0 10*3/uL Normal 0.0-0.2 [facility] Comment on above: Performed By: #### L [id number] ####Medical Technician Assistant: NICOLE BOWERS ([phone])[facility] (SWRLAB)[address] [place] [address] [place] Basophils/100 WBC (Bld) 0.3 % Normal 0.0-2.0 [facility] Comment on above: Performed By: #### L [id number] ####Medical Technician Assistant: NICOLE BOWERS ([phone])[facility] (SWRLAB)[address] [place] [address] Eosinophils (Bld) [#/Vol] 0.1 10*3/uL Normal 0.0-0.5 [facility] Comment on above: Performed By: #### L [id number] ####Medical Technician Assistant: NICOLE BOWERS ([phone])[facility] (SWRLAB)[address] [place] [address] [place] Eosinophils/100 WBC (Bld) 2.0 % Normal 0.0-6.0 [facility] Comment on above: Performed By: #### L [id number] ####Medical Technician Assistant: NICOLE BOWERS ([phone])[facility] (SWRLAB)[address] [place] [address] Erythrocyte distribution width (RBC) [Ratio] 11.7 % Normal 11.5-15.0 [facility] Comment on above: Performed By: #### L [id number] ####Medical Technician Assistant: NICOLE BOWERS ([phone])[facility] (SWRLAB)[address] [place] [address] Hematocrit (Bld) [Volume fraction] 40.0 % Normal 40.0-52.0 [facility] Comment on above: Performed By: #### L [id number] ####Medical Technician Assistant: NICOLE BOWERS ([phone])[facility] (SWRLAB)[address] [place] [address] Hemoglobin (Bld) [Mass/Vol] 13.5 g/dL Normal 13.0-18.0 [facility] Comment on above: Performed By: #### L [id number] ####Medical Technician Assistant: NICOLE BOWERS ([phone])[facility] (SWRLAB)[address] IMMATURE GRANS % 0.2 % Normal 0.0-2.0 [facility] Comment on above: Performed By: #### L [id number] ####Medical Technician Assistant: NICOLE BOWERS ([phone])[facility] (SWRLAB)[address] [place] [address] IMMATURE GRANS ABSOLUTE 0.0 10*3/uL Normal <0.1 [facility] Comment on above: Performed By: #### L [id number] ####Medical Technician Assistant: NICOLE BOWERS ([phone])[facility] (SWRLAB)[address] [place] [address] Lymphocytes (Bld) [#/Vol] 1.7 10*3/uL Normal 1.0-4.3 [facility] Comment on above: Performed By: #### L [id number] ####Medical Technician Assistant: NICOLE BOWERS ([phone])[facility] (SWRLAB)[address] [place] [address] Lymphocytes/100 WBC (Bld) 26.3 % Normal 15.0-45.0 [facility] Comment on above: Performed By: #### L [id number] ####Medical Technician Assistant: NICOLE BOWERS ([phone])[facility] (SWRLAB)[address] [place] [address] MCH (RBC) [Entitic mass] 31.1 pg Normal 26.0-34.0 [facility] Comment on above: Performed By: #### L [id number] ####Medical Technician Assistant: NICOLE BOWERS ([phone])[facility] (SWRLAB)[address] [place], [place] [address] [place] MCHC 33.8 % Normal 30.5-36.0 [facility] Comment on above: Performed By: #### L [id number] ####Medical Technician Assistant: NICOLE BOWERS ([phone])[facility] (SWRLAB)[address] [place] [address] MCV (RBC) [Entitic vol] 92.2 fL Normal 77.0-99.0 [facility] Comment on above: Performed By: #### L [id number] ####Medical Technician Assistant: NICOLE BOWERS ([phone])[facility] (SWRLAB)[address] [place] [address] Monocytes (Bld) [#/Vol] 0.4 10*3/uL Normal 0.0-0.9 [facility] Comment on above: Performed By: #### L [id number] ####Medical Technician Assistant: NICOLE BOWERS ([phone])[facility] (SWRLAB)[address] [place] [address] [place] Monocytes/100 WBC (Bld) 6.2 % Normal 5.0-13.0 [facility] Comment on above: Performed By: #### L [id number] ####Medical Technician Assistant: NICOLE BOWERS ([phone])[facility] (SWRLAB)[address] [place] [address] [place] NEUTROPHILS ABSOLUTE 4.3 10*3/uL Normal 1.8-7.5 [facility] Comment on above: Performed By: #### L [id number] ####Medical Technician Assistant: NICOLE BOWERS ([phone])[facility] (SWRLAB)[address] [place] [address] [place] Neutrophils/100 WBC (Bld) 65.0 % Normal 38.0-82.0 [facility] Comment on above: Performed By: #### L [id number] ####Medical Technician Assistant: NICOLE BOWERS ([phone])[facility] (SWRLAB)[address] [place] [address] [place] NRBC 0.0 /100 WBCs Normal 0.0-2.0 [facility] Comment on above: Performed By: #### L [id number] ####Medical Technician Assistant: NICOLE BOWERS ([phone])[facility] (SWRLAB)[address] Platelet mean volume (Bld) [Entitic vol] 9.3 fL Normal 9.0-12.7 [facility] Comment on above: Result Comment: MPV is a calculated measurement using platelet volume ratio Performed By: #### L [id number] ####Medical Technician Assistant: NICOLE BOWERS ([phone])[facility] (SWRLAB)[address] [place] [address] Platelets (Bld) [#/Vol] 279 10*3/uL Normal 140-440 [facility] Comment on above: Performed By: #### L [id number] ####Medical Technician Assistant: NICOLE BOWERS ([phone])[facility] (SWRLAB)[address] [place] [address] RBC (Bld) [#/Vol] 4.34 10*6/uL Low 4.40-5.90 [facility] Comment on above: Performed By: #### L [id number] ####Medical Technician Assistant: NICOLE BOWERS ([phone])[facility] (SWRLAB)[address] [place] [address] WBC (Bld) [#/Vol] 6.6 10*3/uL Normal 3.6-10.7 [facility] Comment on above: Performed By: #### L [id number] ####Medical Technician Assistant: NICOLE BOWERS ([phone])[facility] (SWRLAB)[address] [place] [address] COMPREHENSIVE METABOLIC PANE Ming 02-28-2024 Albumin [Mass/Vol] 4.4 g/dL Normal 3.5-5.0 [facility] Comment on above: Performed By: #### Pedro H[place], [id number], [id number] ####Medical Technician Assistant: NICOLE BOWERS ([phone])[facility] (SWRLAB)[address] ALP [Catalytic activity/Vol] 83 U/L Normal 38-126 [facility] Comment on above: Performed By: #### Pedro HONEYC[place]T, [id number], [id number] ####Medical Technician Assistant: NICOLE BOWERS ([phone])[facility] (SWRLAB)[address] ALT [Catalytic activity/Vol] 19 U/L Normal 0-49 [facility] Comment on above: Performed By: #### Pedro HONEYCUTT, [id number], [id number] ####Medical Technician Assistant: NICOLE BOWERS ([phone])[facility]RIGESKAMALJIT [facility] (SWRLAB)[address] Anion gap [Moles/Vol] 8 mmol/L Normal 3-13 [facility] Comment on above: Performed By: #### Pedro HONEYCUTT, [id number], [id number] ####Medical Technician Assistant: NICOLE BOWERS ([phone])[facility] (SWRLAB)[address] [place] [address] [place] AST [Catalytic activity/Vol] 39 U/L Normal 15-46 [facility] Comment on above: Performed By: #### Pedro HONEYCUTT, [id number], [id number] ####Medical Technician Assistant: NICOLE BOWERS ([phone])[facility] (SWRLAB)[address] Bilirubin [Mass/Vol] 1.0 mg/dL Normal 0.2-1.3 [facility] Comment on above: Performed By: #### Pedro [id number], [id number], [id number] ####Medical Technician Assistant: NICOLE BOWERS ([phone])[facility] RODRIGESKAMALJIT [facility]ITTMAN (SWRLAB)[address] [place] [address] [place] Calcium [Mass/Vol] 8.8 mg/dL Normal 8.4-10.4 [facility] Comment on above: Performed By: #### Pedro AB17, [id number], [id number] ####Medical Technician Assistant: NICOLE BOWERS ([phone])[facility] (SWRLAB)[address] [place] [address] [place] Chloride [Moles/Vol] 105 mmol/L Normal 98-107 [facility] Comment on above: Performed By: #### Pedro AB17, [id number], [id number] ####Medical Technician Assistant: NICOLE BOWERS ([phone])[facility] (SWRLAB)[address] [place] [address] CO2 [Moles/Vol] 25 mmol/L Normal 22-30 [facility] Comment on above: Performed By: #### Pedro HONEYCUTT, [id number], [id number] ####Medical Technician Assistant: NICOLE BOWERS ([phone])[facility] [facility] (SWRLAB)[address] [place] [address] Creatinine [Mass/Vol] 1.50 mg/dL High 0.66-1.25 [facility] Comment on above: Performed By: #### Pedro [id number], [id number], [id number] ####Medical Technician Assistant: NICOLE BOWERS ([phone])[facility] (SWRL[facility])[address] [place] [address] GLOMERULAR FILTRATION RATE ML/MIN/1.73 SQ M.PREDICTED 57.8 mL/min/1.73m*2 Low >60.0 [facility] Comment on above: Result Comment: Calc ulation based on the Chronic Kidney Disease Epidemiology Collaboration (CKD-EPI) equation refit without adjustment for race Performed By: #### L [id number], [id number], [id number] ####Medical Technician Assistant: NICOLE BOWERS ([phone])[facility] (SWRL[place])[address] [place] [address] Glucose [Mass/Vol] 111 mg/dL High 70-100 [facility] Comment on above: Performed By: #### L [id number], [id number], [id number] ####Medical Technician Assistant: NICOLE BOWERS ([phone])[facility] YE[facility] [place] (SWRLAB)[address] Potassium [Moles/Vol] 4.3 mmol/L Normal 3.5-5.1 [facility] Comment on above: Performed By: #### L AB17, [id number], [id number] ####Medical Technician Assistant: NICOLE BOWERS ([phone])[facility] [place] [place] (SWRLAB)[address] Protein [Mass/Vol] 7.8 g/dL Normal 6.3-8.2 [facility] Comment on above: Performed By: #### Pedro AB17, [id number], [id number] ####Medical Technician Assistant: NICOLE BOWERS ([phone])[facility] [place] (SWRL[place])[address] [place] [address] [place] Sodium [Moles/Vol] 138 mmol/L Normal 135-145 [facility] Comment on above: Performed By: #### Pedro AB17, [id number], [id number] ####Medical Technician Assistant: NICOLE BOWERS ([phone])[facility] YE[facility]TM[place] (SWRLAB)[address] [place] [address] [place] Urea nitrogen [Mass/Vol] 20 mg/dL Normal 9-20 [facility] Comment on above: Performed By: #### L AB17, [id number], [id number] ####Medical Technician Assistant: NICOLE BOWERS ([phone])[facility] [place] (SWRLAB)[address] [place] [address] COVID-19, Flu A/B, and RSV C omboon 02-28-2024 Interpretation and review of laboratory results Normal [facility] CT CHEST ANGIOGRAM W AND/OR WO IV CONTRASTon 02-28-2024 CT CHEST ANGIOGRAM W AND/OR WO IV CONTRAST Normal [facility] CTA Chest vessels WO and W c ontrast Blossom 02-28-2024 1. Cardiomegaly. Pulmonary vascular congestion with infiltrates. Bilateral small pleural effusions, right greater than left. 2. Peribronchial wall thickening concerning for bronchiolitis. 3. No pulmonary artery embolus. 4. Small hiatal hernia. Report Dictated on Electronically Signed By: Kaitlin Goldsmith MD Electronically Signed Date/Time: 02/28/2024 7:57 PM T [facility] 1980 [id number] Exam Date/Time: 02/28/2024 19:42 Procedure: CT CHEST [...] the upper abdomen is within normal limits. [facility] Kaitlin Goldsmith MD - 02/28/2024 Patient Name: CARLO MEDINA : 1980 [facility]#: [id number] Exam Date/Time: 02/28/2024 19:42 Procedure: CT CHEST [...] Electronically Signed Date/Time: 02/28/2024 7:57 PM EDT [facility] Radiology Study observation (narrative) [facility] Comprehensive metabolic 1998 panelon 02-28-2024 Albumin [Mass/Vol] 4.4 g/dL 3.5 - 5.0 g/dL [facility] ALP [Catalytic activity/Vol] 83 U/L 38 - 126 U/L [facility] ALT [Catalytic activity/Vol] 19 U/L 0 - 49 U/L [facility] Anion gap [Moles/Vol] 8 mmol/L 3 - 13 mmol/L [facility] AST [Catalytic activity/Vol] 39 U/L 15 - 46 U/L [facility] Bilirubin [Mass/Vol] 1.0 mg/dL 0.2 - 1 .3 mg/dL [facility] Calcium [Mass/Vol] 8.8 mg/dL 8.4 - 10. 4 mg/dL [facility] Chloride [Moles/Vol] 105 mmol/L 98 - 10 7 mmol/L [facility] CO2 [Moles/Vol] 25 mmol/L 22 - 30 mmol/L [facility] Creatinine [Mass/Vol] 1.50 mg/dL High 0.66 - 1.25 mg/dL [facility] GFR/1.73 sq M.predicted (S/P/Bld) [Vol rate/Area] 57.8 mL/min Low - PINF [facility] Comment on above: Calculation based on the Chronic Kidney Disease Epidemiology Collaboration (CKD-EPI) equation refit without adjustment for race Glucose [Mass/Vol] 111 mg/dL High 70 - 100 mg/dL [facility] Interpretation and review of laboratory results Abnormal [facility] Potassium [Moles/Vol] 4.3 mmol/L 3.5 - 5.1 mmol/L [facility] Protein [Mass/Vol] 7.8 g/dL 6.3 - 8.2 g/dL [facility] Sodium [Moles/Vol] 138 mmol/L 135 - 145 mmol/L [facility] Urea nitrogen [Mass/Vol] 20 mg/dL 9 - 20 mg/dL [facility] D-DIMER,QUANTITATIVEon 02-27 D-DIMER, INNOVANCE 1.45 mg/L High <0.50 [facility] Comment on above: Result Comment: ALEJANDRO Aleman COMMENTS:[employer] D-Dimer values of <0.50 mg/L FEU can be used in combination with a pre-test probability model (e.g. Well's) to exclude pulmonary embolism (PE) disease, as well as an aid in the diagnosis of deep vein thrombosis (DVT). Performed By: #### L [id number] ####Medical Technician Assistant: NICOLE BOWERS ([phone])[facility]AMALJ[facility] LIONEL (SWRLAB)[address] [place] [address] ECG 12-LEADon 02-28-2024 ECG 12-LEAD Normal [facility] ED Nursing Noteon 02-28-2024 ED Nursing Note Normal [facility] ED Nursing Note Report called to [facility] CRISTINE Townsend RN 02/28/242116 Normal [facility] ED Nursing Note Normal [facility] ED Provider Noteon ED Provider Note Normal [facility] Fibrin D-dimer FEU (PPP) [Ma ss/Vol]on 02-28-2024 Interpretation and review of laboratory results Abnormal [facility] D-Dimer values of <0.50 mg/L FEU can be used in combination with a pre-test probability model (e.g. Well's) to exclude pulmonary embolism (PE) disease, as well as an aid in the diagnosis of deep vein thrombosis (DVT). [facility] Laboratory - Chemistry and C hemistry - challengeon 02-28-2024 TSH Qn 1.375 m[IU]/L [facility] h Troponin I.cardiac [Mass/Vol] 0.019 ng/mL [facility] ng/mL [facility] Troponin I.cardiac [Mass/Vol] 0.019 ng/mL [facility] 0.[facility] ng/mL [facility] Laboratory - Coagulationon 0 02-28-2024 Fibrin D-dimer FEU (PPP) [Mass/Vol] 1.45 mg/L High NINF - 0.50 mg/L [facility] Laboratory - Microbiology an d Antimicrobial susceptibilityon 02-28-2024 FLUAV RNA DEENA+probe Ql (Resp) Not detected Not Detected [facility] FLUBV RNA DEENA+probe Ql (Resp) Not detected Not Detected [facility] RSV RNA DEENA+probe Ql (Resp) Not detected Not Detected [facility] SARS-CoV-2 (COVID-19) RNA DEENA+probe Ql (Resp) Not detected Not Detected [facility] SARS-CoV-2 (COVID-19) RNA DEENA+probe Ql (Unsp spec) Methodology: real-time, RT-PCR The SARS-CoV-2, Flu A/B, and RSV Combo assay is intended for in vitro diagnostic use under the FDA Emergency Use Authorization (EUA). This test has not been FDA cleared or approved. In compliance with this authorization, please visit www.fda.gov/media/972 146/download or www.fda.gov/media/964 436/download to access the applicable information sheets. [facility] NT PRO BNPon 02-28-2024 Natriuretic peptide B (Bld) [Mass/Vol] 5170 pg/mL High <20-100 [facility] Comment on above: Performed By: #### L AB17, [id number], [id number] ####Medical Technician Assistant: NICOLE BOWERS ([phone])[facility] (SWRLAB)[address] [place] [address] Natriuretic peptide B [Mass/ Vol]on 02-28-2024 Interpretation and review of laboratory results Abnormal [facility] Natriuretic peptide B (Bld) [Mass/Vol] 5170 pg/mL High <20 - 100 [facility] No Panel Informationon 02-27 [facility] P Arden 59 degrees [facility] [place] Interval 145 ms [facility] QRS Arden -16 degrees [facility] QRSD Interval 99 ms [facility] QT Interval 341 ms [facility] QTC Interval 469 ms [facility] T Wave Arden 124 degrees [facility] Vic Loaiza M D - 02/28/2024 IMPRESSION: Sinus tachycardia Probable left atrial enlargement Abnormal R-wave progression, late transition Left ventricular hypertrophy Abnormal T, consider ischemia, lateral leads ST elevation, consider anterior injury No old ekg available for comparison Electronically Signed On 02-28-2024 18:14:12 EDT by Vic Loaiza [facility] SARS-COV-2, FLU A/B, AND RSV COMBOon 02-28-2024 SARS-CoV-2 (COVID-19) RNA DEENA+probe Ql (Unsp spec) Normal [facility] Comment on above: Performed By: #### L [id number] ####Medical Technician Assistant: NICOLE BOWERS ([phone])[facility] ALEXANDERAN (SWRLAB)[address] [place] [address] THYROID STIMULATING HORMONEo n 02-28-2024 THYROID STIMULATING HORMONE 1.375 uIU/mL Normal 0.465-4.680 [facility] Comment on above: Performed By: #### L [id number], [id number], [id number] ####Medical Technician Assistant: NICOLE BOWERS ([phone])[facility] A[facility]ANDERAN (SWRLAB)[address] [place] [address] TROPONIN Ion 02-28-2024 Troponin I.cardiac [Mass/Vol] 0.019 ng/mL Normal <0.034 [facility] Comment on above: Result Comment: ALEJANDRO Aleman COMMENTS:Patients with high levels of Biotin oral intake (ie >5 mg/day) may have falsely decreased Troponin levels. Performed By: #### L [id number], [id number], [id number] ####Medical Technician Assistant: NICOLE BOWERS ([phone])[facility] A[place]ANDERAN (SWRLAB)[address] [place] [address] TROPONIN, WITH SERIAL REFLEX on 02-28-2024 Troponin I.cardiac [Mass/Vol] 0.019 ng/mL Normal <0.034 [facility] Comment on above: Result Comment: ALEJANDRO Aleman COMMENTS:Patients with high levels of Biotin oral intake (ie >5 mg/day) may have falsely decreased Troponin levels. Performed By: #### L AB17, [id number], [id number] ####Medical Technician Assistant: NICOLE BOWERS ([phone])[facility] ALEXANDERAN (SWRLAB)[address] [place] [address] [place] TSH Qnon 02-28-2024 Interpretation and review of laboratory results Normal [facility] Troponin I.cardiac [Mass/Vol ]on 02-28-2024 Interpretation and review of laboratory results Normal [facility] Patients with high levels of Biotin oral intake (ie >5 mg/day) may have falsely decreased Troponin levels. [facility] Interpretation and review of laboratory results Normal [facility] Patients with high levels of Biotin oral intake (ie >5 mg/day) may have falsely decreased Troponin levels. [facility] Vital signson 02-28-2024 Heart rate 113 /min bpm [facility] XR Chest Single viewon 02-27 1. Cardiomegaly. 2. Pulmonary vascular congestion. 3. Suspect bilateral perihilar infiltrates. Report Dictated on Electronically Signed By: Kaitlin Goldsmith MD Electronically Signed Date/Time: 02/28/2024 6:47 PM EDT [facility] Patient Name: CARLO MEDINA [...] endplate degenerative changes of the thoracic spine. [facility] Kaitlin Goldsmith MD - 02/28/2024 Patient Name: [...] Electronically Signed Date/Time: 02/28/2024 6:47 PM EDT [facility] Radiology Study observation (narrative) [facility] XR Chest Single viewOrdered By: Kaitlin Goldsmith on 02-28-2024 [employer] Work Phone: Vital Signs Date Time Vital Sign Value Performing Clinician Facility 02-10-2025 14:45-0400 Body height 185.[address] Deborah Penaloza DO Work Phone: 2(241)621-059766 [place] [address] 02-10-2025 14:41-0400 Body mass index (BMI) [Ratio] 22.1 kg/m2 Dr. Deborah Penaloza DO Work Phone: 9(650)188-318166 [place] [address] 02-10-2025 14:41-0400 Body weight 76.[address] Deborah Penaloza DO Work Phone: 5(515)805-924666 [place] [address] 02-10-2025 14:41-0400 Diastolic blood pressure 70 mm[Hg] Dr. Deborah Penaloza DO Work Phone: 4(423)673-501666 [place] [address] 02-10-2025 14:41-0400 Heart rate 102 /min Dr. Deborah Penaloza DO Work Phone: 4(612)871-261266 [place] [address] 02-10-2025 14:41-0400 Respiratory rate 18 /min Dr. Deborah Penaloza DO Work Phone: 9(538)660-153766 [place] [address] 02-10-2025 14:41-0400 SaO2% (BldA) [Mass fraction] 95 % Dr. Deborah Penaloza DO Work Phone: 2(537)691-506666 [place] [address] 02-10-2025 14:41-0400 Systolic blood pressure 98 mm[Hg] Dr. Deborah Penaloza DO Work Phone: 2(934)798-195566 [place] [address] 01-29-2025 20:00-0400 Diastolic blood pressure 88 mm[Hg] Dr. Deborah Penaloza DO Work Phone: 3(741)128-050066 [place] [address] 01-29-2025 20:00-0400 Heart rate 98 /min Dr. Deborah Penaloza DO Work Phone: 3(041)963-004566 [place] [address] 01-29-2025 20:00-0400 Respiratory rate 25 /min Dr. Deborah Penaloza DO Work Phone: 9(790)229-518566 [place] [address] 01-29-2025 20:00-0400 SaO2% (BldA) [Mass fraction] 95 % Dr. Deborah Penaloza DO Work Phone: 8(923)444-616766 [place] [address] 01-29-2025 20:00-0400 Systolic blood pressure 104 mm[Hg] Dr. Deborah Penaloza DO Work Phone: 5(582)577-207566 [place] [address] 01-29-2025 15:24-0400 Body temperature 97 [degF] Dr. Deborah Penaloza DO Work Phone: 1(527)920-468166 [place] [address] 01-29-2025 09:34-0400 Inhaled oxygen flow rate 2 L/min Dr. Deborah Penaloza DO Work Phone: 2(318)090-076866 [place] [address] 01-29-2025 08:33-0400 Body mass index (BMI) [Ratio] 23 kg/m2 Dr. Deborah Penaloza DO Work Phone: 3(969)265-585266 [place] [address] 01-29-2025 08:33-0400 Body weight 79.[address] Deborah Penaloza DO Work Phone: 8(071)762-617066 [place] [address] 01-29-2025 07:49-0400 Body height 185.[address] Deborah Penaloza DO Work Phone: 6(719)786-642666 [place] [address] 01-10-2025 09:15-0400 Body temperature 98.2 [degF] Dr. Deborah Penaloza DO Work Phone: 7(793)080-477766 [place] [address] 01-10-2025 09:15-0400 Diastolic blood pressure 84 mm[Hg] Dr. Deborah Penaloza DO Work Phone: 6(848)575-616766 [place] [address] 01-10-2025 09:15-0400 Heart rate 53 /min Dr. Deborah Penaloza DO Work Phone: 7(968)729-194382 [place] [address] 01-10-2025 09:15-0400 Respiratory rate 17 /min Dr. Deborah Penaloza DO Work Phone: 1(537)490-693066 [place] [address] 01-10-2025 09:15-0400 SaO2% (BldA) [Mass fraction] 98 % Dr. Deborah Penaloza DO Work Phone: 2(095)701-447066 [place] [address] 01-10-2025 09:15-0400 Systolic blood pressure 109 mm[Hg] Dr. Deborah Penaloza DO Work Phone: 3(896)128-801366 [place] [address] 01-10-2025 05:37-0400 Diastolic blood pressure 80 mm[Hg] Dr. Deborah Penaloza DO Work Phone: 3(648)542-127866 [place] [address] 01-10-2025 05:37-0400 Systolic blood pressure 107 mm[Hg] Dr. Deborah Penaloza DO Work Phone: 1(215)943-138166 [place] [address] 01-10-2025 04:57-0400 Body mass index (BMI) [Ratio] 21.3 kg/m2 Dr. Deborah Penaloza DO Work Phone: 0(930)162-381866 [place] [address] 01-10-2025 04:57-0400 Body weight 73.[address] Deborah Penaloza DO Work Phone: 6(913)685-861566 [place] [address] 01-10-2025 03:15-0400 Body temperature 97.8 [degF] Dr. Deborah Penaloza DO Work Phone: 5(688)314-411466 [place] [address] 01-10-2025 03:15-0400 Heart rate 100 /min Dr. Deborah Penaloza DO Work Phone: 8(885)615-533666 [place] [address] 01-10-2025 03:15-0400 Respiratory rate 16 /min Dr. Deborah Penaloza DO Work Phone: 1(131)617-392366 [place] [address] 01-10-2025 03:15-0400 SaO2% (BldA) [Mass fraction] 100 % Dr. Deborah Penaloza DO Work Phone: 0(826)838-543766 [place] [address] 01-05-2025 14:36-0400 Body height 185.[address] Deborah Penaloza DO Work Phone: 3(074)728-269482 [place] [address] 01-04-2025 14:05-0400 Body temperature 98 [degF] Dr. Deborah Penaloza DO Work Phone: 9(786)196-209982 [place] [address] 01-04-2025 14:05-0400 Diastolic blood pressure 97 mm[Hg] Dr. Deborah Penaloza DO Work Phone: 8(309)394-513466 [place] [address] 01-04-2025 14:05-0400 Heart rate 53 /min Dr. Deborah Penaloza DO Work Phone: 8(005)724-251666 [place] [address] 01-04-2025 14:05-0400 Respiratory rate 23 /min Dr. Deborah Penaloza DO Work Phone: 2(178)713-000466 [place] [address] 01-04-2025 14:05-0400 SaO2% (BldA) [Mass fraction] 100 % Dr. Deborah Penaloza DO Work Phone: 3(330)128-717982 [place] [address] 01-04-2025 14:05-0400 Systolic blood pressure 126 mm[Hg] Dr. Deborah Penaloza DO Work Phone: 0(605)432-480782 [place] [address] 01-04-2025 14:00-0400 Inhaled oxygen flow rate 2 L/min Dr. Deborah Penaloza DO Work Phone: 4(768)468-142182 [place] [address] 01-04-2025 07:28-0400 Body height 185.[address] Deborah Penaloza DO Work Phone: 0(948)146-594982 [place] [address] 01-04-2025 07:28-0400 Body mass index (BMI) [Ratio] 23.9 kg/m2 Dr. Deborah Penaloza DO Work Phone: 1(708)193-899582 [place] [address] 01-04-2025 07:28-0400 Body weight 82.[address] Deborah Penaloza DO Work Phone: 7(281)365-629282 [place] [address] 10-26-2024 05:14-0400 Body temperature 99.9 [degF] Phoebe Sanderson MD Work Phone: [employer] 10-26-2024 05:14-0400 Diastolic blood pressure 78 mm[Hg] Phoebe Sanderson MD Work Phone: [employer] 10-26-2024 05:14-0400 Heart rate 102 /min Phoebe Sanderson MD Work Phone: [employer] 10-26-2024 05:14-0400 Respiratory rate 19 /min Phoebe Sanderson MD Work Phone: [employer] 10-26-2024 05:14-0400 SaO2% (BldA) [Mass fraction] 97 % Phoebe Sanderson MD Work Phone: [employer] 10-26-2024 05:14-0400 Systolic blood pressure 96 mm[Hg] Phoebe Sanderson MD Work Phone: [employer] 10-20-2024 22:38-0400 Heart rate 53 /min Phoebe Sanderson MD Work Phone: [employer] 10-20-2024 17:00-0400 Body mass index (BMI) [Ratio] 19.74 kg/m2 Phoebe Sanderson MD Work Phone: [employer] 10-20-2024 17:00-0400 Body weight 67.86 kg Phoebe Sanderson MD Work Phone: [employer] 10-18-2024 18:03-0400 Heart rate 117 /min Phoebe Sanderson MD Work Phone: [employer] 10-18-2024 05:18-0400 Body height 185.4 cm Phoebe Sanderson MD Work Phone: [employer] 10-13-2024 15:57-0400 Body temperature 98.4 [degF] Luis Eduardo Schiele DO Work Phone: [employer] 10-13-2024 15:57-0400 Diastolic blood pressure 77 mm[Hg] Luis Eduardo Schiele DO Work Phone: [employer] 10-13-2024 15:57-0400 Heart rate 98 /min Luis Eduardo Schiele DO Work Phone: [employer] 10-13-2024 15:57-0400 Respiratory rate 16 /min Luis Eduardo Bernal DO Work Phone: [facility] 10-13-2024 15:57-0400 SaO2% (BldA) [Mass fraction] 97 % Luis Eduardo Bernal DO Work Phone: [employer] 10-13-2024 15:57-0400 Systolic blood pressure 103 mm[Hg] Luis Eduardo Hunte DO Work Phone: [employer] 10-06-2024 14:00-0400 Body temperature 97.7 [degF] Vargas Berg MD Work Phone: [facility] 10-06-2024 14:00-0400 Diastolic blood pressure 91 mm[Hg] Vargas Berg MD Work Phone: [employer] 10-06-2024 14:00-0400 Heart rate 137 /min Vargas Berg MD Work Phone: [facility] 10-06-2024 14:00-0400 Respiratory rate 18 /min Vargas Berg MD Work Phone: [facility] 10-06-2024 14:00-0400 SaO2% (BldA) [Mass fraction] 99 % Vargas Berg MD Work Phone: [facility] 10-06-2024 14:00-0400 Systolic blood pressure 104 mm[Hg] Vargas Berg MD Work Phone: [facility] 10-06-2024 10:00-0400 Body mass index (BMI) [Ratio] 22.25 kg/m2 Vargas Berg MD Work Phone: [facility] 10-06-2024 10:00-0400 Body weight 76.5 kg Vargas Berg MD Work Phone: [employer] 10-02-2024 11:34-0400 Heart rate 112 /min Vargas Berg MD Work Phone: [employer] 10-01-2024 19:45-0400 Body height 185.4 cm Vargas Berg MD Work Phone: [facility] 09-17-2024 17:43-0400 Diastolic blood pressure 85 mm[Hg] King Medina DO Work Phone: [facility] 09-17-2024 17:43-0400 Heart rate 109 /min King Medina DO Work Phone: [facility] 09-17-2024 17:43-0400 Respiratory rate 16 /min King Medina DO Work Phone: [facility] 09-17-2024 17:43-0400 SaO2% (BldA) [Mass fraction] 99 % King Medina DO Work Phone: [facility] 09-17-2024 17:43-0400 Systolic blood pressure 108 mm[Hg] King Medina DO Work Phone: [facility] 08-25-2024 07:29-0500 Heart rate 110 /min King Waldeny DO Work Phone: [facility] 08-25-2024 06:09-0500 Respiratory rate 18 /min King Waldeny DO Work Phone: [facility] 08-25-2024 06:09-0500 SaO2% (BldA) [Mass fraction] 97 % King Waldeny DO Work Phone: [facility] 08-25-2024 06:08-0500 Diastolic blood pressure 84 mm[Hg] King Skiffey DO Work Phone: [facility] 08-25-2024 06:08-0500 Systolic blood pressure 102 mm[Hg] King Skiffey DO Work Phone: [facility] 08-25-2024 01:16-0500 Body temperature 97 [degF] King Skiffey DO Work Phone: [facility] 08-23-2024 07:25-0500 Heart rate 113 /min Joel Roa MD Work Phone: [facility] 08-23-2024 07:11-0500 Diastolic blood pressure 84 mm[Hg] Joel Roa MD Work Phone: [facility] 08-23-2024 07:11-0500 Respiratory rate 18 /min Joel Roa MD Work Phone: [employer] 08-23-2024 07:11-0500 SaO2% (BldA) [Mass fraction] 100 % Joel Roa MD Work Phone: [employer] 08-23-2024 07:11-0500 Systolic blood pressure 103 mm[Hg] Joel Roa MD Work Phone: [employer] 08-23-2024 05:33-0500 Body height 185.4 cm Joel Roa MD Work Phone: [employer] 08-23-2024 05:33-0500 Body mass index (BMI) [Ratio] 20.85 kg/m2 Joel Roa MD Work Phone: [employer] 08-23-2024 05:33-0500 Body temperature 97.59 [degF] Joel Roa MD Work Phone: [employer] 08-23-2024 05:33-0500 Body weight 71.67 kg Joel Roa MD Work Phone: [employer] 08-20-2024 10:52-0500 Body temperature 97.7 [degF] Joel Fernandes MD Work Phone: [employer] 08-20-2024 10:52-0500 Diastolic blood pressure 64 mm[Hg] Joel Fernandes MD Work Phone: [employer] 08-20-2024 10:52-0500 Heart rate 59 /min Joel Fernandes MD Work Phone: [employer] 08-20-2024 10:52-0500 Respiratory rate 14 /min Joel Fernandes MD Work Phone: [employer] 08-20-2024 10:52-0500 SaO2% (BldA) [Mass fraction] 96 % Joel Fernandes MD Work Phone: [employer] 08-20-2024 10:52-0500 Systolic blood pressure 95 mm[Hg] Joel Fernandes MD Work Phone: [employer] 08-20-2024 03:17-0500 Body mass index (BMI) [Ratio] 20.89 kg/m2 Joel Fernandes MD Work Phone: [facility] 08-20-2024 03:17-0500 Body weight 71.8 kg Joel Fernandes MD Work Phone: [facility] 08-15-2024 08:50-0500 Body height 185.4 cm Joel Fernandes MD Work Phone: [facility] 08-05-2024 08:18-0500 Diastolic blood pressure 89 mm[Hg] Dia Gaitan RN [facility] 08-05-2024 08:18-0500 Heart rate 58 /min Dia Gaitan RN [facility] 08-05-2024 08:18-0500 Respiratory rate 16 /min Dia Gaitan RN [facility] 08-05-2024 08:18-0500 SaO2% (BldA) [Mass fraction] 100 % Dia Gaitan RN [facility] 08-05-2024 08:18-0500 Systolic blood pressure 114 mm[Hg] Dia Gaitan RN [facility] 08-04-2024 23:07-0500 Body temperature 100.09 [degF] Dia Gaitan RN [facility] 08-04-2024 10:02-0500 Body height 185.4 cm Sergei Astudillo MD Work Phone: [facility] 08-04-2024 10:02-0500 Body mass index (BMI) [Ratio] 22.03 kg/m2 Sergei Astudillo MD Work Phone: [facility] 08-04-2024 10:02-0500 Body weight 75.75 kg Sergei Astudillo MD Work Phone: [facility] 08-04-2024 10:02-0500 Diastolic blood pressure 82 mm[Hg] Sergei Astudillo MD Work Phone: [facility] 08-04-2024 10:02-0500 Heart rate 79 /min Sergei Astudillo MD Work Phone: [facility] 08-04-2024 10:02-0500 SaO2% (BldA) [Mass fraction] 97 % Sergei Astudillo MD Work Phone: [facility] 08-04-2024 10:02-0500 Systolic blood pressure 132 mm[Hg] Sergei Astudillo MD Work Phone: [facility] 07-30-2024 11:26-0500 Body temperature 97 [degF] Berthajese Tomasoch DO Work Phone: [facility] 07-30-2024 11:26-0500 Diastolic blood pressure 84 mm[Hg] Bertha Kylee DO Work Phone: [facility] 07-30-2024 11:26-0500 Heart rate 56 /min Bertha Kylee DO Work Phone: [facility] 07-30-2024 11:26-0500 Respiratory rate 18 /min Berthajese Tomasoch DO Work Phone: [facility] 07-30-2024 11:26-0500 SaO2% (BldA) [Mass fraction] 97 % Bertha Kylee DO Work Phone: [facility] 07-30-2024 11:26-0500 Systolic blood pressure 115 mm[Hg] Bertha Kylee DO Work Phone: [facility] 07-30-2024 05:00-0500 Body mass index (BMI) [Ratio] 21.53 kg/m2 Bertha Kylee DO Work Phone: [facility] 07-30-2024 05:00-0500 Body weight 74.03 kg Bertha Kylee DO Work Phone: [facility] 07-21-2024 09:35-0500 Body height 185.4 cm Morgan Ulloa [employer] Work Phone: [facility] 07-21-2024 09:35-0500 Body mass index (BMI) [Ratio] 24.96 kg/m2 Morgan Ulloa [employer] Work Phone: [employer] [facility] 07-21-2024 09:35-0500 Body weight 85.82 kg Morgan Ulloa [employer] Work Phone: [email or web address] [facility] 07-21-2024 09:35-0500 Diastolic blood pressure 98 mm[Hg] Morgan Ulloa [employer] Work Phone: [email or web address] [facility] 07-21-2024 09:35-0500 Heart rate 104 /min Morgan Ulloa [employer] Work Phone: [email or web address] [facility] 07-21-2024 09:35-0500 SaO2% (BldA) [Mass fraction] 94 % Morgan Ulloa [employer] Work Phone: [email or web address] [facility] 07-21-2024 09:35-0500 Systolic blood pressure 120 mm[Hg] Morgan Ulloa [employer] Work Phone: [email or web address] [facility] 07-16-2024 08:00-0500 Body temperature 97 [degF] ANGELO Kenny MD Work Phone: [email or web address] 07-16-2024 08:00-0500 Diastolic blood pressure 66 mm[Hg] ANGELO Kenny MD Work Phone: [email or web address] [facility] 07-16-2024 08:00-0500 Heart rate 88 /min ANGELO Kenny MD Work Phone: [facility] 07-16-2024 08:00-0500 Respiratory rate 18 /min ANGELO Kenny MD Work Phone: [facility] 07-16-2024 08:00-0500 SaO2% (BldA) [Mass fraction] 99 % ANGELO Kenny MD Work Phone: [facility] 07-16-2024 08:00-0500 Systolic blood pressure 99 mm[Hg] ANGELO Kenny MD Work Phone: [email or web address] 07-16-2024 06:16-0500 Body mass index (BMI) [Ratio] 23.71 kg/m2 ANGELO Kenny MD Work Phone: [facility] 07-16-2024 06:16-0500 Body weight 81.5 kg ANGELO Kenny MD Work Phone: [facility] 07-12-2024 17:13-0500 Body height 185.4 cm ANGELO Kenny MD Work Phone: [facility] 07-07-2024 12:57-0500 Body height 185.4 cm Alex Zhang MD Work Phone: [facility] 07-07-2024 12:57-0500 Body mass index (BMI) [Ratio] 23.41 kg/m2 Alex Zhang MD Work Phone: [facility] 07-07-2024 12:57-0500 Body weight 80.47 kg Alex Zhang MD Work Phone: [facility] 07-07-2024 12:57-0500 Diastolic blood pressure 88 mm[Hg] Alex Zhang MD Work Phone: [facility] 07-07-2024 12:57-0500 Heart rate 112 /min Alex Zhang MD Work Phone: [facility] 07-07-2024 12:57-0500 SaO2% (BldA) [Mass fraction] 94 % Alex Zhang MD Work Phone: [facility] 07-07-2024 12:57-0500 Systolic blood pressure 106 mm[Hg] Alex Zhang MD Work Phone: [facility] 07-05-2024 14:00-0500 Diastolic blood pressure 88 mm[Hg] Kishore Mudrakola DO Work Phone: [facility] 07-05-2024 14:00-0500 Heart rate 98 /min Kishore Mudrakola DO Work Phone: [facility] 07-05-2024 14:00-0500 Respiratory rate 16 /min Kishore Mudrakola DO Work Phone: [facility] 07-05-2024 14:00-0500 SaO2% (BldA) [Mass fraction] 97 % Kishore Mudrakola DO Work Phone: [facility] 07-05-2024 14:00-0500 Systolic blood pressure 124 mm[Hg] Kishore Alonso DO Work Phone: [facility] 07-05-2024 12:00-0500 Body temperature 98.2 [degF] Kishore Alonso DO Work Phone: [facility] 07-05-2024 08:00-0500 Body mass index (BMI) [Ratio] 22.48 kg/m2 Kishore Alonso DO Work Phone: [facility] 07-05-2024 08:00-0500 Body weight 77.29 kg Kishore Alonso DO Work Phone: [facility] 07-04-2024 06:00-0500 Body height 185.4 cm Kishore Alonso DO Work Phone: [facility] 07-01-2024 11:08-0500 Diastolic blood pressure 92 mm[Hg] Alex Zhang MD Work Phone: [facility] 07-01-2024 11:08-0500 Systolic blood pressure 125 mm[Hg] Alex Zhang MD Work Phone: [facility] 07-01-2024 10:54-0500 Body height 185.4 cm Alex Zhang MD Work Phone: [facility] 07-01-2024 10:54-0500 Body mass index (BMI) [Ratio] 23.09 kg/m2 Alex Zhang MD Work Phone: [email or web address] 07-01-2024 10:54-0500 Body weight 79.38 kg Alex Zhang MD Work Phone: [email or web address] 07-01-2024 10:54-0500 Heart rate 112 /min Alex Zhang MD Work Phone: [facility] 07-01-2024 10:54-0500 SaO2% (BldA) [Mass fraction] 98 % Alex Zhang MD Work Phone: [email or web address] 06-21-2024 13:25-0500 Heart rate 102 /min Joel Reyes MD Work Phone: [email or web address] 06-21-2024 13:25-0500 SaO2% (BldA) [Mass fraction] 98 % Joel Reyes MD Work Phone: [email or web address] 06-21-2024 13:24-0500 Body temperature 97.9 [degF] Joel Reyes MD Work Phone: [email or web address] 06-21-2024 13:24-0500 Diastolic blood pressure 83 mm[Hg] Joel Reyes MD Work Phone: [email or web address] 06-21-2024 13:24-0500 Respiratory rate 18 /min Joel Reyes MD Work Phone: [email or web address] 06-21-2024 13:24-0500 Systolic blood pressure 116 mm[Hg] Joel Reyes MD Work Phone: [facility] 06-20-2024 19:35-0500 Body mass index (BMI) [Ratio] 22.13 kg/m2 Joel Reyes MD Work Phone: [email or web address] 06-20-2024 19:35-0500 Body weight 76.07 kg Joel Reyes MD Work Phone: [facility] 06-15-2024 11:19-0500 Body height 185.4 cm Joel Reyes MD Work Phone: [facility] 06-08-2024 10:45-0500 Diastolic blood pressure 100 mm[Hg] Morgan Mimsk [employer] Work Phone: [email or web address] 06-08-2024 10:45-0500 Systolic blood pressure 124 mm[Hg] Morgan Laila [employer] Work Phone: [email or web address] 06-08-2024 10:32-0500 Body height 185.4 cm Morgan Laila [employer] Work Phone: [email or web address] 06-08-2024 10:32-0500 Body mass index (BMI) [Ratio] 24.04 kg/m2 Morgan Xiao CNP Work Phone: [facility] 06-08-2024 10:32-0500 Body weight 82.64 kg Morgan Xiao CNP Work Phone: [email or web address] 06-08-2024 10:32-0500 Heart rate 117 /min Morgan Xiao CNP Work Phone: [email or web address] 06-08-2024 10:32-0500 SaO2% (BldA) [Mass fraction] 98 % Morgan Xiao CNP Work Phone: [email or web address] 06-03-2024 20:52-0500 Diastolic blood pressure 89 mm[Hg] Lewis Alexander DO Work Phone: [email or web address] 06-03-2024 20:52-0500 Heart rate 56 /min Lewis Alexander DO Work Phone: [email or web address] 06-03-2024 20:52-0500 Respiratory rate 18 /min Lewis Alexander DO Work Phone: [facility] 06-03-2024 20:52-0500 SaO2% (BldA) [Mass fraction] 99 % Lewis Alexander DO Work Phone: [email or web address] 06-03-2024 20:52-0500 Systolic blood pressure 124 mm[Hg] Lewis Alexander DO Work Phone: [email or web address] 06-03-2024 18:36-0500 Body temperature 97.3 [degF] Lewis Alexander DO Work Phone: [facility] 06-01-2024 15:44-0500 Body temperature 97.2 [degF] Izaiah Martins MD Work Phone: [email or web address] 06-01-2024 15:44-0500 Diastolic blood pressure 98 mm[Hg] Izaiah Martins MD Work Phone: [email or web address] 06-01-2024 15:44-0500 Heart rate 51 /min Izaiah Martins MD Work Phone: [facility] 06-01-2024 15:44-0500 Respiratory rate 16 /min Izaiah Martins MD Work Phone: [email or web address] 06-01-2024 15:44-0500 SaO2% (BldA) [Mass fraction] 97 % Izaiah Martins MD Work Phone: [facility] 06-01-2024 15:44-0500 Systolic blood pressure 130 mm[Hg] Izaiah Martins MD Work Phone: [facility] 05-29-2024 13:57-0500 Body height 185.4 cm Izaiah Martins MD Work Phone: [email or web address] 05-28-2024 14:41-0500 Body mass index (BMI) [Ratio] 23.75 kg/m2 Izaiah Martins MD Work Phone: [facility] 05-28-2024 14:41-0500 Body weight 81.65 kg Izaiah Martins MD Work Phone: [facility] 04-28-2024 10:29-0400 Body temperature 97.9 [degF] Juan Carlos Le MD Work Phone: [facility] 04-28-2024 10:29-0400 Heart rate 106 /min Juan Carlos Le MD Work Phone: [facility] 04-28-2024 10:29-0400 SaO2% (BldA) [Mass fraction] 95 % Juan Carlos Le MD Work Phone: [facility] 04-28-2024 10:14-0400 Diastolic blood pressure 92 mm[Hg] Juan Carlos Le MD Work Phone: [facility] 04-28-2024 10:14-0400 Systolic blood pressure 121 mm[Hg] Juan Carlos Le MD Work Phone: [facility] 04-28-2024 07:39-0400 Body mass index (BMI) [Ratio] 25.3 kg/m2 Juan Carlos Le MD Work Phone: [facility] 04-28-2024 07:39-0400 Body weight 87 kg Juan Carlos Le MD Work Phone: [facility] 04-28-2024 07:39-0400 Respiratory rate 16 /min Juan Carlos Le MD Work Phone: [facility] 04-28-2024 02:39-0400 Body height 185.4 cm Juan Carlos Le MD Work Phone: [facility] 03-07-2024 07:21-0400 Heart rate 88 /min Shane Stern MD Work Phone: [facility] 03-07-2024 07:21-0400 Respiratory rate 16 /min Shane Stern MD Work Phone: [facility] 03-07-2024 07:21-0400 SaO2% (BldA) [Mass fraction] 98 % Shane Stern MD Work Phone: [facility] 03-07-2024 07:21-0400 Body temperature 97.59 [degF] Shane Stern MD Work Phone: [facility] 03-07-2024 07:21-0400 Diastolic blood pressure 102 mm[Hg] Shane Stern MD Work Phone: [facility] 03-07-2024 07:21-0400 Systolic blood pressure 142 mm[Hg] Shane Stern MD Work Phone: [facility] 03-07-2024 03:10-0400 Body mass index (BMI) [Ratio] 24.59 kg/m2 Shane Stern MD Work Phone: [facility] 03-07-2024 03:10-0400 Body weight 84.55 kg Shane Stern MD Work Phone: [facility] 03-05-2024 21:50-0400 Body height 185.4 cm Shane Stern MD Work Phone: [facility] 03-01-2024 11:39-0400 Body temperature 96.91 [degF] Vic Loaiza MD Work Phone: [facility] 03-01-2024 11:39-0400 Diastolic blood pressure 107 mm[Hg] Vic Loaiza MD Work Phone: [email or web address] 03-01-2024 11:39-0400 Heart rate 93 /min Vic Loaiza MD Work Phone: [email or web address] 03-01-2024 11:39-0400 Respiratory rate 16 /min Vic Loaiza MD Work Phone: [email or web address] 03-01-2024 11:39-0400 SaO2% (BldA) [Mass fraction] 98 % Vic Loaiza MD Work Phone: [facility] 03-01-2024 11:39-0400 Systolic blood pressure 141 mm[Hg] Vic Loaiza MD Work Phone: [facility] 02-29-2024 09:30-0400 Body height 185.4 cm Vic Loaiza MD Work Phone: [email or web address] 02-29-2024 09:30-0400 Body mass index (BMI) [Ratio] 27.05 kg/m2 Vic Loaiza MD Work Phone: [facility] 02-29-2024 09:30-0400 Body weight 92.99 kg Vic Loaiza MD Work Phone: [facility] Encounters Encounter Date Encounter Type Care Provider Facility Start: 02-10-2025 End: 02-10-[address] Joel Berg MD -[facility] Work Phone: Start: 02-10-2025 End: 02-10-[address] Deborah Penaloza DO Work Phone: -[facility] Start: 01-29-2025 End: 02-01-2025 Evaluation and management of inpatient NIC ROSADO Facility:[facility] Start: 01-29-2025 End: 01-29-2025 Emergency department patient visit Dr. Deborah Penaloza DO Work Phone: -Emergency Department Work Phone: Start: 01-24-2025 End: 01-24-2025 Patient Outreach Mallika Quiles [facility] Work Phone: Pharmacy Comment on above: Transition Of Care; Heart Failure (TCM Pharmacy-Hospital discharge 01/21/25) Start: 01-19-2025 End: 01-21-2025 Evaluation and management of inpatient MAGED SUNNY Facility:[facility] Start: 01-10-[address] Deborah sam DO Work Phone: -[facility] Start: 01-10-2025 Non-patient / Non-visit Dr. Lavon french MD -[facility] Start: 01-09-2025 Non-patient / Non-visit Dr. Anshul fitzpatrick [facility] Work Phone: Start: 01-08-2025 Non-patient / Non-visit Dr. Anshul fitzpatrick [facility] Work Phone: Start: 01-07-2025 Non-patient / Non-visit Dr. Anshul fitzpatrick [facility] Work Phone: Start: 01-06-2025 Non-patient / Non-visit Dr. Anshul fitzpatrick [facility] Work Phone: Start: 01-05-2025 Non-patient / Non-visit Dr. Anshul Worley [facility] Work Phone: Start: 01-04-2025 ambulatory No Primary Car e Physician Facility:[facility] Start: 01-04-2025 Non-patient / Non-visit Dr. Cass BOSTON -[facility] Start: 01-04-2025 Non-patient / Non-visit Dr. Anshul Worley [facility] Work Phone: Start: 01-04-2025 ambulatory No Primary Car e Physician Facility:[facility] Start: 01-04-2025 End: 01-10-2025 Evaluation and management of inpatient Dr. Anshul Jopperi DO -Progressive Care Unit Work Phone: Start: 12-24-2024 End: 12-24-2024 Refill Yuval Gayle MD Work Phone: [facility] Comment on above: Refill Start: 12-17-2024 End: 12-17-2024 Letter encounter Yuval Gayle MD Work Phone: [facility] Start: 12-13-2024 End: 12-13-2024 Refill Sigrid Vaughn [employer] Work Phone: [facility] Comment on above: Refill Start: 12-02-2024 End: 12-02-2024 Orders Only Yuval Gayle MD Work Phone: [facility] Start: 11-21-2024 End: 11-26-2024 Refill Yuval Gayle MD Work Phone: [facility] Comment on above: Refill Start: 10-27-2024 End: 11-01-2024 ambulatory Radha Flores RN [facility]Patient Access Start: 10-27-2024 End: 11-01-2024 Follow-up encounter Radha Flores RN [facility] Comment on above: Hospital follow-up; Transitional Care Management (HF DC 10/26/24) Start: 10-25-2024 Evaluation and manag ement of inpatient JIM FULLERDonaldo Facility:[facility] Start: 10-24-2024 End: 10-24-2024 Letter encounter Yuval Gayle MD Work Phone: [facility] Start: 10-18-2024 End: 10-26-2024 Evaluation and management of inpatient ANSHUL LAIRD Facility:[facility] Start: 10-17-2024 Emergency department patient visit UNKNOWN PROVIDER Facility:[facility] Start: 10-17-2024 End: 10-26-2024 Evaluation and management of inpatient Phoebe Sanderson MD Work Phone: [facility] Comment on above: Pneumonia of [...] patient visit Luis Eduardo Bernal Work Phone: [facility] Comment on above: Cough (Pt presents t o ed dt chronic cough non productive dry at night, intermittent abd pain (mid lower). -n/v, +d. -cp ) Start: 10-13-2024 End: 10-13-2024 ambulatory Yuval Gayle MD Work Phone: [facility] Comment on above: [facility] Start: 10-07-2024 End: 10-08-2024 ambulatory Radha Flores RN [facility] Start: 10-07-2024 End: 10-08-2024 Follow-up encounter Radha Flores RN [facility] Comment on above: Hospital follow-up ( HF DC 10/06/24); Transitional Care Management Start: 10-02-2024 Evaluation and manag ement of inpatient UNKNOWN PROVIDER Facility:[facility] Start: 10-02-2024 Evaluation and manag ement of inpatient UNKNOWN PROVIDER Facility:[facility] Start: 09-30-2024 End: 10-06-2024 Evaluation and management of inpatient MIGUEL ANGEL BLACKMAN [facility] Start: 09-30-2024 End: 09-30-2024 ambulatory UNKNOWN PROVIDER [facility] Start: 09-30-2024 Emergency department patient visit UNKNOWN PROVIDER [facility] Start: 09-30-2024 End: 10-06-2024 Evaluation and management of inpatient Vargas Berg MD Work Phone: [facility] Comment on above: HFrEF (heart failure [...] 09-30-2024 Emergency department patient visit UNKNOWN PROVIDER Facility:[facility] Start: 09-17-2024 End: 09-19-2024 ambulatory SHARI RUSSNTZ Facility:[id number] Start: 09-17-2024 End: 09-17-2024 Patient encounter procedure King Medina DO Work Phone: [facility] Comment on above: Chest pain, unspecif ied type (Primary Dx); Nausea vomiting and diarrhea Start: 09-17-2024 End: 09-18-2024 ambulatory UNKNOWN PROVIDER Facility:[facility] Start: 09-05-2024 End: 09-05-2024 Evaluation and management of inpatient YUVAL ROBIN [facility] Start: 09-04-2024 End: 09-04-2024 Evaluation and management of inpatient YUVAL ROBIN [facility] Start: 09-02-2024 End: 09-02-2024 Evaluation and management of inpatient LANCE KeynoBill ESAU [facility] Start: 09-01-2024 End: 09-01-2024 Evaluation and management of inpatient UNKNOWN PROVIDER [facility] Start: 09-01-2024 End: 09-11-2024 Evaluation and management of inpatient IP CARDIOLOGY HEART FAILURE CONSULT [facility] Start: 09-01-2024 Evaluation and manag ement of inpatient UNKNOWN PROVIDER Facility:[facility] Start: 08-31-2024 Emergency department patient visit UNKNOWN PROVIDER Facility:[facility] Start: 08-31-2024 End: 08-31-2024 ambulatory UNKNOWN PROVIDER Facility:[facility] Start: 08-27-2024 End: 08-27-2024 ambulatory UNKNOWN PROVIDER Facility:[facility] Start: 08-25-2024 End: 09-21-2024 Telephone encounter Dia Gaitan RN [facility] Cardiac Progressive Care Unit PCU 5W Comment on above: Heart Failure Outrea Start: 08-25-2024 End: 08-25-2024 Emergency department patient visit Florina Minal KERR Work Phone: [facility] ED Comment on above: Elevated serum creat inine (Primary Dx); Elevated brain natriuretic peptide (BNP) level Start: 08-23-2024 End: 08-23-2024 Telephone encounter Manuela White [facility] Work Phone: [facility] Comment on above: Other (HFdEF) Start: 08-23-2024 End: 08-23-2024 Emergency department patient visit Joel Roa MD Work Phone: [facility] ED Comment on above: Biventricular conges tive heart failure (HCC) (Primary Dx); Generalized abdominal pain; Chest pain, unspecified type Start: 08-22-2024 End: 08-23-2024 Emergency department patient visit NIC ROSADO Facility:[facility] Start: 08-12-2024 End: 08-12-2024 Telephone encounter Christopher Tai MD Work Phone: [facility] Medicine Start: 08-09-2024 End: 08-20-2024 Evaluation and management of inpatient Joel Fernandes MD Work Phone: [facility] Cardiac Progressive Care Unit PCU 5W Start: 08-05-2024 End: 08-05-2024 Yobany Astudillo MD Work Phone: [facility] Start: 08-05-2024 End: 08-05-2024 Emergency department patient visit Dia Gaitan RN [facility] EMERGENCY DEPT Comment on above: SCHUYLER (acute kidney in jury) (HCC) (Primary Dx); Shortness of breath; Chest pain, unspecified type Start: 08-04-2024 End: 08-04-2024 Subsequent hospital visit by physician Armando Ecg [facility] Non-Invasive Cardiology Comment on above: Arrived Start: 08-04-2024 End: 08-04-2024 Emergency department patient visit JAMAL DIA [facility] Start: 08-04-2024 End: 08-04-2024 Office outpatient visit 25 minutes Sergei Astudillo MD Work Phone: [facility] Comment on above: HFrEF (heart failure with reduced ejection fraction) (HCC) (Primary Dx); Essential hypertension; Acute deep vein thrombosis (DVT) of other specified vein of both lower extremities (HCC) Start: 08-04-2024 End: 08-04-2024 ambulatory SERGEI ASTUDILLO [facility] Start: 08-03-2024 End: 08-12-2024 Telephone encounter Dia Gaitan RN [facility] Cardiac Progressive Care Unit PCU 5W Start: 08-02-2024 End: 08-12-2024 Telephone encounter Kaitlin Gonzalez LPN [facility] Clinical Communication Comment on above: Hospital Follow-up Start: 07-23-2024 End: 07-30-2024 Evaluation and management of inpatient Bertha Pichardo DO Work Phone: [facility] Cardiac Progressive Care Unit PCU 2E Comment on above: Acute kidney injury (HCC) (Primary Dx); History of congestive heart failure; Bilateral lower extremity edema; SCHUYLER (acute kidney injury) (HCC) Start: 07-23-2024 End: 07-23-2024 Telephone encounter Morgan Xiao CNP Work Phone: [facility] Comment on above: Appointment Request Results (Worsening r enal function, hyperkalemia, heart failure) Start: 07-21-2024 End: 07-21-2024 ambulatory MORGAN ULLOA [facility] Start: 07-21-2024 End: 07-21-2024 Office outpatient visit 25 minutes Morgan Ulloa APRN - [employer]OC[employer]ATE [employer] Work Phone: [facility] Comment on above: HFrEF (heart failure with reduced ejection fraction) (HCC) (Primary Dx); Acute HFrEF (heart failure with reduced ejection fraction) (HCC); Essential hypertension; Stage 3a chronic kidney disease (HCC); Noncompliance Start: 07-19-2024 End: 07-20-2024 Telephone encounter Kaitlin Gonzalez LPN [facility] Clinical Communication Comment on above: Hospital Follow-up Start: 07-16-2024 End: 07-16-2024 Orders Only Luma Fulton Benita [employer] Work Phone: [facility] Comment on above: Chronic systolic hea rt failure (HCC) (Primary Dx) Start: 07-13-2024 End: 07-13-2024 Emergency department patient visit JAMAL DIA [facility] Start: 07-11-2024 End: 07-16-2024 Evaluation and management of inpatient J Melita Kenny MD Work Phone: [facility] Cardiac Progressive Care Unit PCU 2E Comment [...] 25 minutes Alex Zhang MD Work Phone: [facility] Comment on above: Acute systolic heart failure (HCC) (Primary Dx); Essential hypertension; Chronic systolic heart failure (HCC); Chronic kidney disease, unspecified CKD stage Start: 07-07-2024 End: 07-07-2024 ambulatory ALEX ZHANG [facility] Start: 07-03-2024 End: 07-05-2024 Evaluation and management of inpatient Kishore Alonso DO Work Phone: [facility] Cardiac Thoracic Vascular Intensive Care Unit CTV ICU T1 Comment on above: Acute kidney injury superimposed on CKD (HCC) (HCC) (Primary Dx); Transaminitis; History of CHF (congestive heart failure); HFrEF (heart failure with reduced ejection fraction) (HCC) Start: 07-01-2024 End: 07-01-[address] [facility] Start: 07-01-2024 End: 07-01-2024 Office outpatient visit 25 minutes Alex Zhang MD Work Phone: [facility] Comment on above: Chronic systolic hea rt failure (HCC) (Primary Dx); Essential hypertension; Chronic kidney disease, unspecified CKD stage Start: 06-24-2024 End: 06-24-2024 Telephone encounter Kaitlin Gonzalez LPN [facility] Clinical Communication Comment on above: Hospital Follow-up Start: 06-22-2024 End: 06-24-2024 Telephone [facility] Comment on above: Hospital Follow-up Start: 06-13-2024 End: 06-21-2024 Evaluation and management of inpatient Joel Reyes MD Work Phone: [facility] Cardiac Progressive Care Unit PCU 2E Comment on above: Acute exacerbation o f chronic heart failure (HCC) (Primary Dx); Leg swelling; Elevated liver enzymes; Essential hypertension; Shortness of breath; Stage 3b chronic kidney disease (HCC); Pulmonary vascular congestion Start: 06-10-2024 End: 06-10-2024 Telephone encounter Morgan Xiao CNP Work Phone: [facility] Comment on above: Other Start: 06-08-2024 End: 06-08-2024 ambulatory [facility] Start: 06-08-2024 End: 06-08-2024 ambulatory [facility] Start: 06-08-2024 End: 06-08-2024 Office outpatient visit 25 minutes Morgan Ulloa APRN - ASSOCIATE [employer] Work Phone: [facility] Comment on above: Essential hypertensi on (Primary Dx); Congestive heart failure, unspecified HF chronicity, unspecified heart failure type (HCC); Elevated liver enzymes; Chronic kidney disease, unspecified CKD stage Start: 06-07-2024 End: 06-07-2024 Telephone encounter Jia Victor PA-C Work Phone: [facility] Central Scheduling Comment on above: Other (Scheduling ) Start: 06-03-2024 End: 06-03-2024 Emergency department patient visit Lewis Alexander Work Phone: [facility] ED Comment on above: Edema of left lower extremity (Primary Dx) Start: 06-03-2024 End: 06-11-2024 Telephone encounter Kaitlin Gonzalez LPN [facility] Clinical Communication Comment on above: Hospital Follow-up Start: 06-02-2024 End: 06-07-2024 Telephone encounter Morgan Ulloa [employer] Work Phone: [facility] Jenny Comment on above: Other (Returning alesia l) Start: 05-30-2024 End: 06-07-2024 Telephone encounter Lizzette Burger [employer] - [employer] Work Phone: [facility] Cardiology Shonna Mann Comment on above: Appointment Request Start: 05-28-2024 End: 06-01-2024 Evaluation and management of inpatient Izaiah Martins MD Work Phone: [facility] Cardiac Progressive Care Unit PCU 2E Comment on above: Metabolic acidosis ( Primary Dx); HFrEF (heart failure with reduced ejection fraction) (HCC); Acute cholecystitis without calculus Start: 05-05-2024 End: 05-31-2024 Telephone encounter Dia Gaitan RN [facility] Cardiac Progressive Care Unit PCU 5W Comment on above: Care Coordination Start: 04-30-2024 End: 05-11-2024 Telephone encounter Sergei Astudillo MD Work Phone: [facility] Cardiology [place] Comment on above: Chest Pain Start: 04-29-2024 End: 04-29-2024 Telephone encounter Dia Gaitan RN [facility] Cardiac Progressive Care Unit PCU 5W Comment on above: Care Coordination Start: 04-28-2024 End: 04-28-2024 Subsequent hospital visit by physician [facility] Ct Exam Room [address] [facility] [address] Comment on above: Arrived Start: 04-28-2024 End: 04-28-2024 Emergency department patient visit JUAN CARLOS LE [facility] Start: 04-28-2024 End: 04-28-2024 ambulatory ALONZO AGUILAR [facility] Start: 04-28-2024 End: 04-28-2024 Subsequent hospital visit by physician Kamaljit Ecg [facility] Stress Comment on above: Arrived Start: 04-28-2024 End: 04-28-2024 Emergency department patient visit Juan Carlos Le MD Work Phone: [facility] Clinical Decision Unit CDU Comment on above: Pulmonary vascular c ongestion (Primary Dx); Chest pain, unspecified type; Acute cough; Sore throat; Positive D dimer; Congestive heart failure, unspecified HF chronicity, unspecified heart failure type (HCC); Orthopnea; Short of breath on exertion Start: 04-27-2024 End: 04-27-2024 Telephone encounter Dia Gaitan RN [facility] Cardiac Progressive Care Unit PCU 5W Comment on above: Care Coordination Ou treach Start: 03-16-2024 End: 03-17-2024 Telephone encounter Jeffrey Conklin MD Work Phone: [facility] Cardiology - [place] Comment on above: Med Management Start: 03-08-2024 End: 03-16-2024 Telephone encounter Dia Gaitan RN [facility] Cardiac Progressive Care Unit PCU 5W Comment on above: Care Coordination Start: 03-05-2024 End: 03-05-2024 Emergency department patient visit [facility] Start: 03-05-2024 End: 03-05-2024 Subsequent hospital visit by physician [facility] Ct Exam Room [address] [facility] [address] Comment on above: Arrived Start: 03-05-2024 End: 03-05-2024 Subsequent hospital visit by physician [facility] Xr Portable [facility] Radiology Comment on above: Arrived Start: 03-05-2024 End: 03-05-2024 Emergency department patient visit [facility] Start: 03-05-2024 End: 03-07-2024 Evaluation and management of inpatient Shane Stern MD Work Phone: [facility] Cardiac Progressive Care Unit PCU 2E Comment on above: Shortness of breath (Primary Dx); Acute on chronic congestive heart failure, unspecified heart failure type (HCC); Hypoxia; Pleural effusion Start: 03-02-2024 End: 03-04-2024 Telephone encounter aKitlin Gonzalez [facility] Clinical Communication Comment on above: Hospital Follow-up Start: 02-28-2024 End: 02-28-2024 Subsequent hospital visit by physician [facility] Ct Exam Room [address] [facility] [address] Comment on above: Arrived Start: 02-28-2024 End: 02-28-2024 Emergency department patient visit [facility] Start: 02-28-2024 End: 03-01-2024 Evaluation and management of inpatient Vic Loaiza MD Work Phone: [facility] Cardiac Progressive Care Unit PCU 2E Comment [...] exam ches t single view Anshul Laird [employer]NER Work Phone: Start: 10-25-2024 Assay of magnesium Rosier angie Mckeon [employer]NER Work Phone: Start: 10-25-2024 Hepatic function panel Leatha Mckeon [employer] Work Phone: Start: 10-21-2024 Assay of magnesium Rosier angie Mckeon [employer] Work Phone: Start: 10-21-2024 Hepatic function panel Leathanasim Mckeon [employer] Work Phone: Start: 10-20-2024 Assay of lactate Larry Myers DO Work Phone: Start: 10-20-2024 Hepatic function panel Leathanasim Mckeon [employer]ATE [employer] Work Phone: Start: 10-20-2024 Ecg routine ecg w/le ast 12 lds trcg only w/o i&r Leatha Mckeon [employer]ATE [employer] Work Phone: Start: 10-18-2024 Smr prim src [...] Work Phone: Start: 10-17-2024 NT PRO-BNP Vic balir MD Work Phone: Start: 10-17-2024 Ecg routine [...] - S polly or Plasma Mallika Quiles [facility] Work Phone: Start: 09-30-2024 Assay [...] Work Phone: Start: 08-12-2024 Natriuretic peptide Mckayla LANGSTON-C Work Phone: Start: 08-12-2024 Comprehensive metabo lic [...] Assay of troponin quantitative Angel Luis Mejia [employer] - [employer]ATE [employer]CIAL [employer]NER Work Phone: Start: 08-05-2024 Ecg routine ecg w/le ast 12 lds trcg only w/o i&r Ashtyn Miles [employer] - [employer]ATE [employer]CIAL [employer]NER Work Phone: Start: 08-05-2024 Basic metabolic pane l calcium total Angel Luis Mejia [employer] - [employer]ATE [employer] Work Phone: Start: 08-05-2024 Radiologic exam ches t 2 views Angel Luis Mejia [employer] - [employer] Work Phone: Start: 08-04-2024 Ecg routine ecg w/le ast 12 lds trcg only w/o i&r Jamal Dia MD Work Phone: Start: 08-04-2024 Follow-up visit [facility] Start: 07-30-2024 Basic metabolic pane l calcium total Lilibeth Anguianos [employer] - [employer]ATE [employer]NER Work Phone: Start: 07-29-2024 Comprehensive metabo lic panel Berenice Rosenthal [employer] - [employer]ATE [employer]CIAL [employer]NER Work Phone: Start: 07-28-2024 Comprehensive metabo lic panel Berenice Rosenthal [employer] - [employer]ATE [employer] Work Phone: Start: 07-27-2024 Comprehensive metabo lic panel Berenice Rosenthal [employer] - [employer]ATE [employer] Work Phone: Start: 07-26-2024 Comprehensive metabo lic panel Berenice Rosenthal [employer] - [employer]ATE [employer]CIAL [employer]NER Work Phone: Start: 07-24-2024 End: 07-24-2024 Basic [...] Radiologic exam abdo men 1 view Lilibeth Anguianos [employer] - [employer]ATE [employer]NER Work Phone: Start: 07-16-2024 Comprehensive metabo lic panel Lilibeth Darya [employer] - [employer]ATE [employer]NER Work Phone: Start: 07-15-2024 Basic metabolic pane [...] 07-04-2024 Basic metabolic panel calcium total Roopa ZelayakamaljitNinoskaOrlando DO Work Phone: Start: 07-04-2024 Comprehensive metabo lic panel [employer] Murguia DO Work Phone: Start: 07-03-2024 Creatinine other source [employer]-Ward Shantal DO Work Phone: Start: 07-03-2024 Assay [...] ast 12 lds trcg only w/o i&r Kishoremg Chinola DO Work Phone: Start: 07-01-2024 Ecg routine ecg w/le ast 12 lds w/i&r Alex Zhang MD Work Phone: Start: 07-01-2024 Follow-up visit [facility] Start: 06-20-2024 Basic metabolic pane l calcium total Sergei Mcguire DO Work Phone: Start: 06-19-2024 Radiologic exam ches t 2 views Angel Luis Lassiter MD Work Phone: Start: 06-18-2024 Basic metabolic pane l calcium total Serg Celaya MD Work Phone: Start: 06-17-2024 Ecg routine ecg w/le ast 12 lds trcg only w/o i&r Sherri Jeter MD Work Phone: Start: 06-17-2024 Cardiac catheterizat ion study Gaby Marcano [facility] Work Phone: Start: 06-17-2024 End: 06-17-2024 POCT O2 SATURATION Sergei Mcguire DO Work Phone: Start: 06-16-2024 Basic metabolic pane l calcium total Maritza Linn [facility] Work Phone: Start: 06-15-2024 Echo tthrc r-t 2d w/wom-mode compl spec&colr d Angel Luis Morales MD Work Phone: Start: 06-15-2024 Chloride urine Maritza Linn [facility] Work Phone: Start: 06-15-2024 Urinalysis complete panel - Urine Maritza Linn [facility] Work Phone: Start: 06-15-2024 Urine albumin quantitative Maritza Linn [facility] Work Phone: Start: 06-15-2024 Urnls dip stick/tabl et rgnt auto w/o microscopy Maritza Linn [facility] Work Phone: Start: 06-15-2024 Comprehensive metabo lic panel Rafa Samuel MD Work Phone: Start: 06-14-2024 Ct abdomen & pelvis w/o contrast material Segr Celaya MD Work Phone: Start: 06-14-2024 Dup-scan [...] 06-13-2024 Comprehensive metabo lic panel Jono Dubois [employer] Work Phone: Start: 06-13-2024 Radiologic exam ches t single view Jono Dubois [employer] Work Phone: Start: 06-13-2024 Ecg routine ecg w/le ast 12 lds trcg only w/o i&r Jono Dubois [employer] Work Phone: Start: 06-08-2024 Basic metabolic pane l calcium total Morgan Ulloa [employer] - [employer]ATE [employer]NER Work Phone: Start: 06-08-2024 Ecg routine ecg w/le ast 12 lds trcg only w/o i&r Sergei Astudillo MD Work Phone: Start: 06-08-2024 Follow-up visit [facility] Start: 06-01-2024 Comprehensive metabo lic panel Mary Ellen Brito MD Work Phone: Start: 06-01-2024 Mri abdomen w/o cont rast material Anna LANGSTON Work Phone: Start: 05-31-2024 Us abdominal real ti me w/image documentation Lizzette Burger [employer] - [employer]ATE [employer] Work Phone: Start: 05-30-2024 End: 05-30-2024 Comprehensive metabolic panel Mary Ellen Brito MD Work Phone: Start: 05-29-2024 Us retroperitoneal r eal time w/image complete Maritza Linn [employer] - [employer] Work Phone: Start: 05-29-2024 Comprehensive metabo lic panel Mary Ellen Brito MD Work Phone: Start: 05-28-2024 Chloride urine Maritza Linn [employer] - [facility] Work Phone: Start: 05-28-2024 Urinalysis complete panel - Urine Maritza Linn [employer] - [facility] Work Phone: Start: 05-28-2024 Urnls dip stick/tabl et reagent auto microscopy Maritza Linn [employer] - [facility] Work Phone: Start: 05-28-2024 Basic metabolic pane l calcium total Maritza Linn [employer] - [facility] Work Phone: Start: 05-28-2024 Radiologic exam [...] emsa stain bct fungi/cell Thapasya S Rein [employer] - [employer]ATE [employer]CIAL [employer]NER Work Phone: Start: 04-28-2024 Ecg routine ecg w/le ast 12 lds trcg only w/o i&r Alonzo Aguilar MD Work Phone: Start: 04-28-2024 Assay of troponin quantitative Thapasya S Rein [employer] - [employer]ATE [employer] Work Phone: Start: 04-28-2024 Iaadiadoo not otherw ise specified Thapasya S Rein [employer] - [employer]ATE [employer]CIAL [employer]NER Work Phone: Start: 04-28-2024 Assay of troponin [...] DEENA with non-probe detection Thapasya S Rein [employer] - [employer]ATE [employer]CIAL [employer]NER Work Phone: Start: 04-28-2024 SARS-COV-2, FLU A/B, [...] for Adults (1 - 1-dose 75+ series) [facility] Start: 2053 [facility] Start: 2038 RSV Immunization aged 60 or older (1 - 1-dose 60+ series) RSV Immunization aged 60 or older (1 - 1-dose 60+ series) [facility] Start: 10-01-2029 Lipid panel [facility] Start: 08-27-2029 Lipid panel [facility] Start: 06-14-2029 Lipid panel [facility] Start: 02-28-2029 Lipid panel Lipid Panel [facility] Start: 02-14-2028 Shingles (RZV) Vaccine (1 of 2) Shingles (RZV) Vaccine ([facility]) [facility] Start: 02-14-2028 Zoster Vaccines (1 of 2) Zoster Vaccines (1 of 2) [facility] Start: 02-14-2028 [facility] Start: 01-21-2028 Diabetes Screening Diabetes Screening [facility] Start: 09-10-2027 Diabetes Screening Diabetes Screening [facility] Start: 03-01-2027 Diabetes mellitus screening Diabetes Screening [facility] Start: 01-20-2026 Complete blood count Hemoglobin/Hematocrit [facility] Start: 01-20-2026 Creatinine measurement Serum Creatinine [facility] Start: 10-25-2025 Creatinine measurement Basic Metabolic Panel [facility] Start: 10-21-2025 Creatinine measurement Basic Metabolic Panel [facility] Start: 10-06-2025 Creatinine measurement Basic Metabolic Panel [facility] Start: 10-01-2025 Hemoglobin A1c measurement Hemoglobin A1C [facility] Start: 08-25-2025 Creatinine measurement Creatinine Level [facility] Start: 08-25-2025 Potassium measurement Potassium Level [facility] Start: 08-20-2025 Creatinine measurement [facility] Start: 08-20-2025 Potassium measurement [facility] Start: 08-19-2025 Creatinine measurement Creatinine Level [facility] Start: 08-19-2025 Potassium measurement Potassium Level [facility] Start: 08-12-2025 Creatinine measurement Creatinine Level [facility] Start: 08-12-2025 Potassium measurement Potassium Level [facility] Start: 08-11-2025 Echocardiography Echocardiogram [facility] Start: 08-11-2025 [facility] Start: 08-05-2025 Creatinine measurement Creatinine Level [facility] Start: 08-05-2025 Potassium measurement Potassium Level [facility] Start: 07-30-2025 Creatinine measurement Creatinine Level [facility] Start: 07-30-2025 Potassium measurement Potassium Level [facility] Start: 07-21-2025 Creatinine measurement Creatinine Level [facility] Start: 07-21-2025 Potassium measurement Potassium Level [facility] Start: 07-16-2025 Creatinine measurement Creatinine Level [facility] Start: 07-16-2025 Potassium measurement Potassium Level [facility] Start: 07-04-2025 Creatinine measurement Creatinine Level [facility] Start: 07-04-2025 Potassium measurement Potassium Level [facility] Start: 06-20-2025 Creatinine measurement Creatinine Level [facility] Start: 06-20-2025 Potassium measurement Potassium Level [facility] Start: 06-15-2025 Echocardiography [facility] Start: 06-08-2025 Creatinine measurement Creatinine Level [facility] Start: 06-08-2025 Potassium measurement Potassium Level [facility] Start: 06-01-2025 Creatinine measurement Creatinine Level [facility] Start: 06-01-2025 Potassium measurement Potassium Level [facility] Start: 05-30-2025 Creatinine measurement Creatinine Level [facility] Start: 05-30-2025 Potassium measurement Potassium Level [facility] Start: 04-28-2025 Creatinine measurement Creatinine Level [facility] Start: 04-28-2025 Potassium measurement Potassium Level [facility] Start: 03-30-2025 Influenza vaccination Influenza Vaccine (#1) [facility] Start: 03-07-2025 Creatinine measurement Creatinine Level [facility] Start: 03-07-2025 Potassium measurement Potassium Level [facility] Start: 03-05-2025 Creatinine measurement Creatinine Level [facility] Start: 03-05-2025 Potassium measurement Potassium Level [facility] Start: 03-04-2025 Liver Imaging (Hepatocellular Carcinoma Screening) Liver Imaging (Hepatocellular Carcinoma Screening) [facility] Start: 03-01-2025 Creatinine measurement Creatinine Level [facility] Start: 03-01-2025 Diabetes mellitus screening [facility] Start: 03-01-2025 Potassium measurement Potassium Level [facility] Start: 02-28-2025 Creatinine measurement Creatinine Level [facility] Start: 02-28-2025 Echocardiography Echocardiogram [facility] Start: 02-28-2025 Influenza [facility] Start: 02-28-2025 Potassium measurement Potassium Level [facility] Start: 02-10-2025 Evaluation of diagnostic study results [facility] Start: 01-29-2025 [facility] Start: 01-29-2025 Computed tomography of abdomen and pelvis with intravenous contrast Abdomen/Pelvis W IV Cont ONLY [facility] Start: 01-29-2025 CT of chest without contrast Chest without Contrast [facility] Start: 01-29-2025 [facility] Start: 01-10-2025 Patient discharge [facility] Start: 01-08-2025 Palliative care [facility] Start: 01-07-2025 Referral to solvent plant treater [facility] Start: 01-05-2025 Prothrombin time [facility] Start: 01-04-2025 Following clinical pathway protocol [facility] Start: 01-04-2025 Ambulation without limitation [facility] Start: 01-04-2025 Assessment of risk of venous thromboembolism [facility] Start: 01-04-2025 Elevation of affected extremity [facility] Start: 01-04-2025 Insertion of catheter into peripheral vein [facility] Start: 01-04-2025 Measuring intake and output [facility] Start: 01-04-2025 Notification of physician [facility] Start: 01-04-2025 Patient education [facility] Start: 01-04-2025 Patient referral to dietitian [facility] Start: 01-04-2025 Providing care according to standard [facility] Start: 01-04-2025 [facility] Start: 01-04-2025 Verification routine [facility] Start: 01-04-2025 Admission procedure [facility] Start: 01-04-2025 [facility] Start: 01-04-2025 Patient referral to dietitian [facility] Start: 11-17-2024 End: 11-17-2024 Patient encounter procedure 11/17/2024 2:20 PM EDT Office Visit [facility] [address] [place] [address] Disha Brenner MD [address] [place] [id number] [facility] Start: 11-12-2024 End: 11-12-2024 Patient encounter procedure 11/12/2024 8:40 AM EDT Office Visit [facility] Cardiology [address] [place] [id number] Jamal Geronimo MD [address] [place], [place] [id number] [facility] Start: 11-05-2024 End: 11-05-2024 Patient encounter procedure 11/05/2024 8:40 AM EDT Office Visit [facility]iology [address] [place] [id number] Jamal Geronimo MD [address] [place] [id number] [facility] Start: 10-28-2024 End: 04-27-2025 Assay of magnesium [facility] Lab Routine Acute kidney injury superimposed on stage 3b chronic kidney disease [N17.9, N18.32] Expected: 10/28/2024, Expires: 04/27/2025 [facility] Comment on above: Expected: 10/28/2024, Expires: Start: 10-28-2024 End: 04-27-2025 Basic metabolic 2000 panel - Serum or Plasma BASIC METABOLIC PANEL Lab Routine Acute kidney injury superimposed on stage 3b chronic kidney disease [N17.9, N18.32] Expected: 10/28/2024, Expires: 04/27/2025 [facility] Comment on above: Expected: 10/28/2024, Expires: Start: 10-28-2024 End: 04-27-2025 CBC W Auto Differential panel - Blood COMPLETE BLOOD COUNT W/DIFF Lab Routine SOB (shortness of breath) Expected: 10/28/2024, Expires: 04/27/2025 [facility] Comment on above: Expected: 10/28/2024, Expires: Start: 10-28-2024 End: 04-27-2025 Hepatic function panel HEPATIC FUNCTION PANEL Lab Routine Elevated liver enzymes Expected: 10/28/2024, Expires: 04/27/2025 [facility] Comment on above: Expected: 10/28/2024, Expires: Start: 10-18-2024 End: 10-18-2024 Patient encounter procedure 10/18/2024 10:00 AM EDT Office Visit [facility] Nephrology [address] [place] [address] Cristy Luque APRN-ASSOCIATE FINANCIAL PLANNER [address] [place] [address] [facility]phrology Start: 09-10-2024 End: 09-10-2024 Patient encounter procedure 09/10/2024 11:00 AM EDT Office Visit [facility] - [place] [address] [place] [id number] Morgan Ulloa, [employer] - [employer]OC[employer]ATE FINANCIAL PLANNER [address] [facility], [address] [place] [address] [facility] - [place] Start: 09-02-2024 End: 09-02-2024 ambulatory [facility] - [place] Start: 09-02-2024 End: 09-02-2024 Patient encounter procedure 09/02/2024 11:30 AM EST Office Visit [facility] - [place] [address] [place] [phone] Sergei Astudillo MD [address] [place] [address] [facility] - [place] Start: 08-30-2024 End: 07-01-2026 US Heart Transthoracic Transthoracic echocardiogram (TTE) limited with contrast, bubble, strain, and 3D PRN CV Echocardiography Routine Chronic systolic heart failure (HCC) Expected: 08/30/2024 (Approximate), Expires: 07/01/2026 [facility] Work Phone: Comment on above: Expected: 08/30/2024 (Approximate), Expi res: 07/01/2026 Start: 08-30-2024 End: 08-30-2024 Patient encounter procedure 08/30/2024 11:00 AM EST Appointment [facility] Non-Invasive Cardiology [address] [place] [phone] [facility] Non-Invasive Cardiology Start: 08-24-2024 End: 08-24-2024 Patient encounter procedure 08/24/2024 9:00 AM EST Office Visit [facility] - [place] [address] [place] [phone] Maritza Ambrosio PA-C [address] [place], [place] [phone] [email or web address] [facility] - [place] Start: 08-18-2024 End: 08-11-2025 Basic metabolic 1998 panel - Serum or Plasma [facility] Work Phone: Start: 08-18-2024 End: 08-18-2024 Patient encounter procedure 08/18/2024 1:00 PM EST Office Visit [facility] [place] [address] [place] [phone] Maritza Ambrosio PA-C [address] [place], [place] [phone] [facility] [place] Start: 08-11-2024 End: 08-04-2025 Basic metabolic 1998 panel - Serum or Plasma Basic metabolic panel Lab Routine HFrEF (heart failure with reduced ejection fraction) (HCC) Expected: 08/11/2024 (Approximate), Expires: 08/04/2025 [facility] Comment on above: Expected: 08/11/2024 (Approximate), Expi res: 08/04/2025 Start: 08-06-2024 End: 07-30-2025 Comprehensive metabolic 1998 panel - Serum or Plasma Comprehensive metabolic panel Lab Routine SCHUYLER (acute kidney injury) (HCC) Expected: 08/06/2024 (Approximate), Expires: 07/30/2025 [facility] [employer] Work Phone: Comment on above: Expected: 08/06/2024 (Approximate), Expi res: 07/30/2025 Start: 08-04-2024 End: 08-04-2025 Basic metabolic 1997 panel - Serum or Plasma Basic metabolic panel Lab Routine HFrEF (heart failure with reduced ejection fraction) (HCC) Expected: 08/04/2024 (Approximate), Expires: 08/04/2025 [email or web address] [facility] Work Phone: Comment on above: Expected: 08/04/2024 (Approximate), Expi res: 08/04/2025 Start: 08-04-2024 End: 08-04-2024 Patient encounter procedure 08/04/2024 10:15 AM EST Office Visit [facility] [address] [place] [phone] Sergei Astudillo MD [address] [place] [address] [facility] Start: 08-01-2024 End: 07-01-2025 Basic metabolic 1997 panel - Serum or Plasma Basic metabolic panel Lab Routine Chronic systolic heart failure (HCC) Expected: 08/01/2024 (Approximate), Expires: 07/01/2025 [facility] Comment on above: Expected: 08/01/2024 (Approximate), Expi res: 07/01/2025 Start: 07-29-2024 End: 07-29-2024 Patient encounter procedure 07/29/2024 2:30 PM EST Office Visit [facility] [address] [facility] [address] [place] [phone] Morgan Ulloa, [employer] - ASSOCIATE FIN[employer]CIAL PL[employer]NER [address], [address] [place] [address] [facility] Start: 07-28-2024 End: 07-21-2025 Basic metabolic 1998 panel - Serum or Plasma Basic metabolic panel Lab Routine HFrEF (heart failure with reduced ejection fraction) (HCC) Expected: 07/28/2024 (Approximate), Expires: 07/21/2025 [facility] Comment on above: Expected: 07/28/2024 (Approximate), Expi res: 07/21/2025 Start: 07-28-2024 End: 07-28-2024 Patient encounter procedure 07/28/2024 9:30 AM EST Office Visit [facility] [address] [place] [phone] Sergei Astudillo MD [address] [place] [address] [facility] Start: 07-23-2024 End: 07-23-2024 Patient encounter procedure 07/23/2024 2:30 PM EST Office Visit [facility] [address] [facility] [address] [place] [phone] Morgan Ulloa, [employer] - ASSOCIATE FIN[employer]CIAL PLANNER [address] [address] [facility] Start: 07-21-2024 End: 07-21-2025 Basic metabolic 1998 panel - Serum or Plasma Basic metabolic panel Lab Routine HFrEF (heart failure with reduced ejection fraction) (HCC) Expected: 07/21/2024 (Approximate), Expires: 07/21/2025 [facility] Work Phone: Comment on above: Expected: 07/21/2024 (Approximate), Expi res: 07/21/2025 Start: 07-21-2024 End: 07-21-2024 Patient encounter procedure 07/21/2024 9:30 AM EST Office Visit [facility] [address] [facility] [address] [place] [phone] Morgan Ulloa, [employer] - ASSOCIATE FINANCIAL PLANNER [address] [facility], [address] [place] [address] [facility] Start: 07-19-2024 End: 07-16-2025 Basic metabolic 1998 panel - Serum or Plasma Basic metabolic panel Lab Routine Chronic systolic heart failure (HCC) Expected: 07/19/2024 (Approximate), Expires: 07/16/2025 [facility] Work Phone: Comment on above: Expected: 07/19/2024 (Approximate), Expi res: 07/16/2025 Start: 07-14-2024 End: 07-07-2025 Basic metabolic 1998 panel - Serum or Plasma Basic metabolic panel Lab Routine Acute systolic heart failure (HCC) Expected: 07/14/2024 (Approximate), Expires: 07/07/2025 [facility] Work Phone: Comment on above: Expected: 07/14/2024 (Approximate), Expi res: 07/07/2025 Start: 07-07-2024 End: 07-07-2024 Patient encounter procedure 07/07/2024 1:00 PM EST Office Visit [facility] [address] [facility] [address] [place] [phone] Alex Zhang MD [address] [place] [phone] [facility] Start: 07-01-2024 End: 07-01-2024 Patient encounter procedure 07/01/2024 10:45 AM EST Office Visit [facility] [address] [facility] [address] [place] [phone] Alex Zhang MD [address] [place] [phone] [facility] Start: 06-16-2024 End: 06-10-2025 Basic metabolic 1997 panel - Serum or Plasma Basic metabolic panel Lab Routine Congestive heart failure, unspecified HF chronicity, unspecified heart failure type (HCC) Expected: 06/16/2024 (Approximate), Expires: 06/10/2025 [facility] Work Phone: Comment on above: Expected: 06/16/2024 (Approximate), Expi res: 06/10/2025 Start: 06-15-2024 End: 06-08-2025 Hepatic function 2000 panel - Serum or Plasma Hepatic function panel Lab Routine Congestive heart failure, unspecified HF chronicity, unspecified heart failure type (HCC) Expected: 06/15/2024 (Approximate), Expires: 06/08/[facility]25 [facility] Comment on above: Expected: 06/15/2024 (Approximate), Expi res: 06/08/2025 Start: 06-14-2024 End: 06-14-2024 Patient encounter procedure 06/14/2024 3:15 PM EST Office Visit [facility] [address] [facility] 10 [place] [phone] Dudley Killian MD [address] [place] [address] 10 [place], [place] [phone] [facility] Start: 06-08-2024 End: 06-01-2025 CBC W Auto Differential panel - Blood CBC auto differential Lab Routine HFrEF (heart failure with reduced ejection fraction) (HCC) Expected: 06/08/2024 (Approximate), Expires: 06/01/2025 [facility] [employer] Comment on above: Expected: 06/08/2024 (Approximate), Expi res: 06/01/2025 Start: 06-08-2024 End: 06-01-2025 Comprehensive metabolic 1998 panel - Serum or Plasma Comprehensive metabolic panel Lab Routine HFrEF (heart failure with reduced ejection fraction) (HCC) Expected: 06/08/2024 (Approximate), Expires: 06/01/2025 [facility] [employer] Work Phone: Comment on above: Expected: 06/08/2024 (Approximate), Expi res: 06/01/2025 Start: 06-08-2024 End: 06-08-2024 Patient encounter procedure 06/08/2024 9:30 AM EST Office Visit [facility] [address] [facility] [address] [place] [address] Morgan Ulloa, [employer] - ASSOCIATE FINANCIAL PLANNER [address], [address] [place] [address] [facility] Start: 04-05-2024 End: 04-05-2024 Patient encounter procedure [facility] Start: 03-11-2024 End: 03-11-2024 Patient encounter procedure 03/11/2024 10:00 AM EDT Office Visit [facility] Cardiology [address] [facility] [address] [place] [phone] Gaby Marcano APRN - ASSOCIATE FINANCIAL PLANNER [address] [facility] [address] [place] [address] [facility] Cardiology Start: 02-29-2024 COVID-19 Vaccine ( season) COVID-19 Vaccine ( season) [facility] Start: 02-29-2024 COVID-19 Vaccine ( season) COVID-19 Vaccine ( season) [facility] Start: 02-29-2024 Influenza vaccination Influenza Vaccine (#1) [facility] Start: 02-29-2024 [facility] Start: 2023 Screening for malignant neoplasm of colon [facility] Start: 1997 DTaP/Tdap/Td Vaccines (1 - Tdap) DTaP/Tdap/Td Vaccines (1 - Tdap) [facility] Start: 1997 Hepatitis A (HAV) Vaccine (optional start 19+ years) Hepatitis A (HAV) Vaccine (optional start 19+ years) [facility] Start: 1997 Hepatitis A Vaccine (1 of 2 - Risk 2-dose series) Hepatitis A Vaccine (1 of 2 - Risk 2-dose series) [facility] Start: 1997 Hepatitis B vaccination Hepatitis B (HBV) Vaccine (1 of 3 - 19+ 3-dose series) [facility] Start: 1997 Hepatitis B Vaccine (1 of 3 - 19+ 3-dose series) Hepatitis B Vaccine (1 of 3 - 19+ 3-dose series) [facility] Start: 1997 Hepatitis B Vaccines (1 of 3 - 19+ 3-dose series) Hepatitis B Vaccines (1 of 3 - 19+ 3-dose series) [facility] Start: 1997 Pneumococcal vaccination [facility] Start: 1997 Pneumococcal Vaccine: Pediatrics (0 to 5 Years) and At-Risk Patients (6 to 49 Years) (1 of 2 - PCV) Pneumococcal Vaccine: Pediatrics (0 to 5 Years) and At-Risk Patients (6 to 49 Years) (1 of 2 - PCV) [facility] Start: 1997 Urine microalbumin profile DTaP,Tdap,Td Vaccine (1 - Tdap) [facility] Start: 1997 [facility] Start: 02-14-1996 Annual PCP Team Chronic Disease Visit Annual PCP Team Chronic Disease Visit [facility] Start: 02-14-1996 Anxiety Screening Anxiety Screening [facility] Start: 02-14-1996 Depression Screening Depression Screening [facility] Start: 02-14-1996 Diabetes mellitus screening Diabetes Screening [facility] Start: 02-14-1996 Hepatitis C screening [facility] Start: 02-14-1996 HIV screening HIV Screening [facility] Start: 02-14-1996 Tdap Booster Tdap Booster [facility] Start: 1990 Depression Screening Depression Screening [facility] Start: 1990 [facility] Start: 02-14-1984 Pneumococcal Vaccine: Pediatrics (0 to 5 Years) and At-Risk Patients (6 to 64 Years) (1 of 2 - PCV) Pneumococcal Vaccine: Pediatrics (0 to 5 Years) and At-Risk Patients (6 to 64 Years) (1 of 2 - PCV) [facility] Start: 1979 MMR Vaccines (1 of 1 - Standard series) MMR Vaccines (1 of 1 - Standard series) [facility] Start: 1979 [facility] Start: 1978 Echocardiography Echocardiogram [facility] Start: 1978 Fluid sample AFP level Alpha Fetoprotein (Hepatocellular Carcinoma Screening) [facility] Start: 1978 HIV screening [facility] Start: 1978 Lipid panel Lipid Panel [facility] Start: 1978 Prostate specific antigen measurement Prostate Cancer Screening (shared decision making) [facility] Start: 1978 Screening for malignant neoplasm of colon [facility] Alanine aminotransfe rase [Enzymatic activity/volume] in Serum or Plasma [facility] Albumin [Mass/volume ] in Serum or Plasma [facility] Alkaline phosphatase [Enzymatic activity/volume] in Serum or Plasma [facility] Anion gap in Serum o r Plasma [facility] Assay of magnesium MAGNESIUM Lab STAT Daily until discontinued starting 10/01/2024, 4 completed [facility] Comment on above: Daily until discontinued starting 2024, 4 completed Assay of magnesium MAGNESIUM Lab STAT Daily until discontinued starting 10/18/2024, 4 completed [facility] Comment on above: Daily until discontinued starting 2024, 4 completed End: 10-26-2024 Assay of magnesium MAGNESIUM Lab Routine Morning Blood Draw for 1 Occurrences starting 10/26/2024 until 10/26/2024 [facility] Comment on above: Morning Blood Draw for 1 Occurrences sta rting 10/26/2024 until 10/26/2024 Assay of phosphorus inorganic PHOSPHORUS Lab Routine Daily until discontinued starting 10/01/2024, [address] [employer] Work Phone: Comment on above: Daily until discontinued starting 2024, 4 completed End: 04-28-2024 Bacteria identified in Lower respiratory specimen by Aerobe culture Respiratory culture and Stain Microbiology Routine Once (Lab) for 1 Occurrences starting 04/28/2024 until 04/28/2024 [facility] Comment on above: Once (Lab) for 1 Occurrences starting until 04/28/2024 Basic metabolic 2000 panel - Serum or Plasma BASIC METABOLIC PANEL Lab STAT Daily until discontinued starting 10/01/2024, [address] [employer] Work Phone: Comment on above: Daily until discontinued starting 2024, 4 completed Basic metabolic 2000 panel - Serum or Plasma BASIC METABOLIC PANEL Lab STAT Daily until discontinued starting 10/18/2024, 4 completed [facility] Comment on above: Daily until discontinued starting 2024, 4 completed End: 10-26-2024 Basic metabolic 2000 panel - Serum or Plasma BASIC METABOLIC PANEL Lab Routine Morning Blood Draw for 1 Occurrences starting 10/26/2024 until 10/26/2024 [facility] Comment on above: Morning Blood Draw for 1 Occurrences sta rting 10/26/2024 until 10/26/2024 Bilirubin, total measurement [facility] End: 10-02-2024 Blood count complete auto&auto [...] for 1 Occurrences starting 10/05/2024 until 10/05/2024 [facility] Comment on above: Once for 1 Occurrences starting 10/06/19 until 10/05/2024 End: 10-19-2024 Blood count complete auto&auto difrntl wbc CBC WITH DIFFERENTIAL Lab Only STAT Once for 1 Occurrences starting 10/19/2024 until 10/19/2024 [facility] Work Phone: Comment on above: Once for 1 Occurrences starting 10/20/19 until 10/19/2024 End: 10-22-2024 Blood count complete auto&auto difrntl wbc CBC WITH DIFFERENTIAL Lab Only STAT Once for 1 Occurrences starting 10/22/2024 until 10/22/2024 [facility] Comment on above: Once for 1 Occurrences starting 10/23/19 until 10/22/2024 End: 10-23-2024 Blood count complete auto&auto difrntl wbc CBC WITH DIFFERENTIAL Lab Only STAT Once for 1 Occurrences starting 10/23/2024 until 10/23/2024 [facility] Comment on above: Once for 1 Occurrences starting 10/24/19 until 10/23/2024 End: 10-24-2024 Blood count complete auto&auto difrntl wbc CBC WITH DIFFERENTIAL Lab Only STAT Once for 1 Occurrences starting 10/24/2024 until 10/24/2024 [facility] Comment on above: Once for 1 [...] for 1 Occurrences starting 10/26/2024 until 10/26/2024 [facility] Comment on above: Once for 1 Occurrences starting 10/27/19 until 10/26/2024 BUN/Creatinine ratio [facility] Calcium [Mass/volume ] in Serum or Plasma [facility] Carbon dioxide, tota l [Moles/volume] in Central venous blood [facility] CBC W Auto Different ial panel - Blood COMPLETE BLOOD COUNT W/DIFF Lab STAT Daily until discontinued starting 10/01/2024, 3 completed [facility] Comment on above: Daily until discontinued starting 2024, 3 completed CBC W Auto Different ial panel - Blood COMPLETE BLOOD COUNT W/DIFF Lab STAT Daily until discontinued starting 10/18/2024, 4 completed [facility] Comment on above: Daily until discontinued starting 2024, 4 completed End: 10-26-2024 CBC W Auto Differential panel - Blood COMPLETE BLOOD COUNT W/DIFF Lab Routine Morning Blood Draw for 1 Occurrences starting 10/26/2024 until 10/26/[address] [employer] Work Phone: Comment on above: Morning Blood Draw for 1 Occurrences sta rting 10/26/2024 until 10/26/2024 Cholesterol [Mass/vo lume] in Serum or Plasma [facility] Cholesterol in HDL [Mass/volume] in Serum or Plasma [facility] End: 08-25-2024 COVID-19, Flu A/B, and RSV Combo COVID-19, Flu A/B, and RSV Combo Microbiology STAT Once (Lab) for 1 Occurrences starting 08/25/2024 until 08/25/2024 [facility] Work Phone: Comment on above: Once (Lab) for 1 Occurrences starting until 08/25/2024 Creatinine [Mass/vol ume] in Serum or Plasma [facility] End: 10-17-2024 Cul prsmptv pthgnc organism scrn w/colony estimj MRSA SCREEN Microbiology STAT One time for 1 Occurrences starting 10/17/2024 until 10/17/[address] [employer] Work Phone: Comment on above: One time for 1 Occurrences starting 09/29 until 10/17/2024 End: 10-18-2024 Culture bacterial blood aerobic w/id isolates BLOOD CULTURE Microbiology Routine One time for 1 Occurrences starting 10/18/2024 until 10/18/2024 [employer] Comment on above: One time for 1 Occurrences starting 09/29 until 10/18/2024 ECG 12 lead ECG 12 lead CV E CG STAT 04/28/2024 10:07 AM [employer] Work Phone: ECG 12 lead ECG 12 lead CV E CG Routine Congestive heart failure, unspecified HF chronicity, unspecified heart failure type (HCC) 06/08/2024 10:32 AM [employer] Work Phone: ECG 12 lead ECG 12 lead CV E CG STAT 08/05/2024 7:06 AM [employer] Work Phone: ECG 12 lead ECG 12 lead CV E CG STAT 08/25/2024 2:29 AM [employer] End: 10-20-2024 Ecg routine ecg w/least 12 lds trcg only w/o i&r EKG 12 LEAD - PERFORM MUSE Routine Daily for 3 Days starting 10/18/2024 until 10/20/2024, 1 completed [employer] Comment on above: Daily for 3 Days starting 10/18/2024 unt il 10/20/2024, 1 completed Ecg routine ecg w/le ast 12 lds trcg only w/o i&r EKG 12 LEAD - PERFORM MUSE Routine PRN until discontinued starting 10/18/2024 [employer] Comment on above: PRN until discontinued starting 10/19/19 25 Erythrocyte mean corpuscular volume determination [facility] Evaluation of diagno stic study results [facility] Glucose [Mass/volume ] in Serum or Plasma [facility] Hematocrit [Volume Fraction] of Blood [facility] Hemoglobin [Mass/vol ume] in Blood [facility] Hepatic function panel HEPATIC F UNCTION PANEL Lab Routine Daily until discontinued starting 10/19/2024, 3 completed [employer] Comment on above: Daily until discontinued starting 2024, 3 completed End: 09-30-2024 Iaad ia mult step method nos each organism LEGIONELLA ANTIGEN, URINE Microbiology STAT One time for 1 Occurrences starting 09/30/2024 until 09/30/[address] [employer] Work Phone: Comment on above: One time for 1 Occurrences starting 08/2024 until 09/30/2024 INR in Blood by Coagulation assay [facility] LAB COLOGUARD COLON CANCER SCREEN [facility] Routine Screening for colorectal cancer Ordered: 12/02/[address] [employer] Work Phone: Comment on above: Ordered: 12/02/2024 Leukocytes [#/volume ] in Blood [facility] Low density lipoprot ein cholesterol measurement [facility] Mean corpuscular hemoglobin concentration determination [facility] Mean corpuscular hemoglobin determination [facility] Measurement of renal function [facility] Neutrophil count [facility] Neutrophil percent differential count [facility] End: 09-30-2024 Particle agglutination screen each antibody STREPTOCOCCUS PNEUMONIAE AG Microbiology STAT One time, now for 1 Occurrences starting 09/30/2024 until 09/30/2024 [employer] Comment on above: One time, now for 1 Occurrences starting 09/30/2024 until 09/30/2024 Patient Education Heart Failure and Depression Heart Failure Meds Heart Failure Flare Up Signs Heart Failure Make Changes Diet Heart Failure Dc Heart Failure Sleep Problems Heart Failure Care Heart Failure and Physical Activity Heart Failure [facility] Work Phone: Platelets [#/volume] in Blood [facility] Potassium measurement [facility] Red blood cell count [facility] Red cell distributio n width determination [facility] End: 04-28-2024 Respiratory pathogens DNA and RNA panel - Lower respiratory specimen by DEENA with non-probe detection Pneumonia PCR Panel Microbiology Routine Once (Lab) for 1 Occurrences starting 04/28/2024 until 04/28/2024 [facility] [employer] Work Phone: Comment on above: Once (Lab) for 1 Occurrences starting until 04/28/2024 Serum chloride measurement [facility] Sodium measurement [facility] Total cholesterol:HD L ratio measurement [facility] Total protein measurement [facility] Triglycerides measurement [facility] Urea nitrogen [Mass/volume] in Serum or Plasma [facility] Urnls dip stick/tabl et rgnt auto w/o microscopy URINALYSIS W/REFLEX CULTURE Lab Routine When Specimen Available/Needed for 1 Occurrences starting 10/25/2024 [facility] Comment on above: When Specimen Available/Needed for 1 Occ urrences starting 10/25/2024 VLDL cholesterol measurement [facility] Immunizations Immunization Date Immunization Notes Care Provider Fa cility 10-01-2024 Hemoglobin A1C Vargas Berg MD Work Phone: [facility] 06-14-2024 influenza vaccine tiss-cult subunt (Flucelvax) STANDARD-DOSE injection 0.5 mL Joel Reyes MD Work Phone: [facility] [employer] Payers Date Payer Category Payer Self-pay 2024 Commercial Managed C are - HMO [id number] 2024 Other Federal [facility] UAL EXCHANGE [id number] [address] [facility] [id number] 2024 Unknown [id number] 2024 Medicaid [id number] 2024 Medicaid [id number] 1978 Unknown [id number] 2.840.1.790147.3.579.2. 159 1978 Unknown [id number] 2.840.1.918162.3.579.2 1978 Unknown [id number] 2.840.1.372041.3.579.2 1978 Unknown [id number] .840.1.883221.3.579.2 1978 Unknown [id number] 2.840.1.489691.3.579.2 1978 Unknown [id number] .840.1.452224.3.579.2 1978 Unknown [id number] 2.840.1.173367.3.579.2 1978 Unknown [id number] 2.840.1.463539.3.579.2 1978 Unknown [id number] 2.840.1.501185.3.579.2 1978 Unknown [id number] 2.840.1.903821.3.579.2. 73 1978 Unknown [id number] 2..840.1.782822.3.579.2. 1978 Unknown [id number] 2..840.1.052505.3.579.2 1978 Unknown [id number] 2..840.1.992252.3.579.2 1978 Unknown [id number] 2.840.1.038335.3.579.2 1978 Unknown [id number] 2.840.1.293469.3.579. 1980 Unknown [id number] 2.840.1.418448.3.579.2 1978 Unknown [id number] .840.1.967357.3.579. 1978 Unknown [id number] 2.840.1.386671.3.579.2 1978 Unknown [id number] 2.840.1.391178.3.579. 1978 Unknown [id number] 2.840.1.154329.3.579.2 1978 Unknown [id number] .840.1.944456.3.579.2 1978 Unknown [id number] 2.840.1.001924.3.579.2. 1978 Unknown [id number] 2.840.1.964138.3.579.2 1978 Unknown [id number] 2.840.1.328063.3.579.2 1978 Unknown [id number] .840.1.933072.3.579.2 1978 Unknown [id number] 2.16.840.1.369116.3.579.2. 732 1978 Unknown [id number] 2.16.840.1.824166.3.579.2. 732 Unknown Unknown [id number] 2.16.840.1.199808.3.579.2. 462 Unknown [id number] 2.16.840.1.283721.3.579.2. 462 Unknown [id number] 2.16.840.1.805393.3.579.2. 462 Unknown [id number] 2.16.840.1.700148.3.579.2. 462 Unknown [id number] 2.16.840.1.180798.3.579.2. 462 Unknown [id number] 2.16.840.1.310019.3.579.2. 462 Unknown [id number] 2.16.840.1.017826.3.579.2. 462 Unknown [id number] 2.16.840.1.230382.3.579.2. 462 Unknown [id number] 2.16.840.1.979624.3.579.2. 462 Unknown [id number] 2.16.840.1.104180.3.579.2. 462 Unknown [id number] 2.16.840.1.302421.3.579.2. 462 Unknown [id number] 2.16.840.1.062782.3.579.2. 462 Social History Date Type Detail Facility Start: 02-28-2024 End: 01-29-2025 Tobacco smoking status [facility] Never smoked tobacco [facility] Start: 02-28-2024 End: 08-27-2024 Tobacco use and exposure Smokeless tobacco non-user [facility] Start: 02-28-2024 End: 01-20-2025 History of Social function [facility] Start: 02-28-2024 End: 01-20-2025 B1300 Health Literacy [facility] How often do you nee d to have someone help you when you read instructions, pamphlets, or other written material from your doctor or pharmacy [SILS] Never [facility] Has the electric, gas, oil, or water company threatened to shut off services in your home in past 12Mo No [facility] Are you now , , , , never or living with a partner? Living with partner [facility] How often to you hav e a drink containing alcohol? Never [facility] How hard is it for you to pay for the very basics like food, housing, medical care, and heating Not very hard [facility] Do you feel stress - tense, restless, nervous, or anxious, or unable to sleep at night because your mind is troubled all the time - these days [OSQ] To some extent [facility] (I/We) worried whether (my/our) food would run out before (I/we) got money to buy more. Never true [facility] Start: 1980 Sex assigned at Not on file [facility] How often to you hav e a drink containing alcohol? Monthly or less [facility] How many standard drinks containing alcohol do you have on a typical day? 1 or 2 [facility] Start: 02-28-2024 End: 08-09-2024 Sex Male (finding) [facility] Do you feel stress - tense, restless, nervous, or anxious, or unable to sleep at night because your mind is troubled all the time - these days [OSQ] Not at all [facility] Start: 05-28-2024 Sexual orientation Heterosexual (fin ding) [facility] Start: 05-28-2024 End: 08-25-2024 Alcoholic beverage intake Lifetime non-drinker (finding) [facility] Start: 1980 Sex assigned at Male [facility] Start: 06-13-2024 Gender identity Identifies as male gender (finding) [facility] Tobacco smoking status DCIS Tobacco smoking consumption unknown [facility] Work Phone: NEGATED: Highlighted rowStart: NINF History of tobacco use Passive smoker [facility] Goals Date Patient Goal Desired Activity /State Personal health goal Functional Status Date Assessment Result Facility 01-21-2025 Are you deaf, or do you have serious difficulty hearing No 01/21/2025 1:26 PM King Villeda RN No [facility] 01-21-2025 Are you blind, or do you have serious difficulty seeing, even when wearing glasses No 01/21/2025 1:26 PM King Villeda, RN No [facility] 01-21-2025 Do you have serious difficulty walking or climbing stairs No 01/21/2025 1:26 PM King Villeda, RN No [facility] 01-21-2025 Do you have difficul ty dressing or bathing No 01/21/2025 1:26 PM King Villeda, RN No [facility] 01-21-2025 Because of a physica l, mental, or emotional condition, do you have difficulty doing errands alone such as visiting a physician's office or shopping No 01/21/2025 1:26 PM King Villeda RN No [facility] 01-10-2025 Functional status Ambulates;Bath room Privilege [facility] Work Phone: 01-10-2025 Functional status Ambulates [facility] Work Phone: 01-09-2025 Functional status Tolerates Activity Well [facility] Work Phone: 06-01-2024 Are you deaf, or do you have serious difficulty hearing No [facility] 06-01-2024 Are you blind, or do you have serious difficulty seeing, even when wearing glasses No [facility] 06-01-2024 Do you have serious difficulty walking or climbing stairs No [facility] 06-01-2024 Do you have difficul ty dressing or bathing No [facility] 06-01-2024 Because of a physica l, mental, or emotional condition, do you have difficulty doing errands alone such as visiting a physician's office or shopping No [facility] Mental Status Date Assessment Result Facility 01-21-2025 Because of a physica l, mental, or emotional condition, do you have serious difficulty concentrating, remembering, or making decisions No 01/21/2025 1:26 PM King Villeda, RN No [facility] 01-10-2025 Cognitive function Voice/Name [facility] Work Phone: 01-09-2025 Cognitive function Voice/Name [facility] Work Phone: 06-01-2024 Because of a physica l, mental, or emotional condition, do you have serious difficulty concentrating, remembering, or making decisions No [facility] Clinical Notes 02-28-2024 to 02-01-2025 Note Date & Type Note Facility 02-01-2025 Note HNO ID: [id number] Author: JASON CANO MD Service: Hospital Medicine [...] February 01, 2025 TIME: 12:54 PM PAGER: [facility] 02-01-2025 Note HNO ID: [id number] Author: KASSANDRA ENGLAND LSW Service: Care Management Author Type: Reviewer Sales Type: Care Mgt Progress Note Filed: 02/01/2025 [...] will establish with a PCP and utilize [facility] in the future. No discharge concerns at this time. SIGNATURE: MADDIE Billy PATIENT NAME: Carlo Medina DATE: February 01, 2025 TIME: 12:25 PM [facility] 02-01-2025 Note HNO ID: [id number] Author: KASSANDRA ENGLAND LSW Service: Care Management Author Type: Reviewer Sales Type: Care Mgt Initial Assessment Filed: 02/01/2025 10:00 Note Text: CARE MANAGEMENT: ASSESSMENT AND DISCHARGE PLAN SERVICE DATE: February 01, 2025 SERVICE TIME: 9:57 AM PCP: No primary care provider on file. Primary Contact: No emergency contact information on file. Admission Status: Inpatient Insurance Provider: [employer] Discharge Planning requested by: Per Department Practice Potential Transition Plans Home Advance Directives Current Advance Directive: None Software Verification Engineer Attempted to Assist with AD Completion: Yes [...] Be able to go home, General wellness [place] Explained: [place] Given: No Reason Not Given: [...] contacts as he reports that his hospital ([facility]) has them on file and that he [...] DATE: February 01, 2025 TIME: 9:57 AM [facility] 01-31-2025 Note HNO ID: [id number] Author: JACE JIN APRN.ASSOCIATE FINANCIAL PLANNER Service: Gastroenterology Author Type: Nurse Practitioner Type: [...] continue to follow. GI attending, Dr. Bates [facility] 01-31-2025 Note HNO ID: [id number] Author: ROLANDO ROBBINS MD Service: General Internal Medicine Author Type: Physician Type: Progress Notes Filed: 01/31/2025 07:57 Note Text: DEPARTMENT OF HOSPITAL MEDICINE PROGRESS NOTE SERVICE DATE: 01/31/2025 SERVICE TIME: 7:50 AM Hospital Medicine/Primary Attending: Rolando Robbins MD NIGHT AND WEEKEND COVERAGE: [place] COVERAGE: From 7am - 7pm, please call [phone] After 7pm, please call cross cover pager #[phone] Subjective INTERVAL HPI: Patient refused to take [...] (From admission, onw (more content not included)... [facility] 01-30-2025 Note HNO ID: [id number] Author: ROLANDO ROBBINS MD Service: General Internal Medicine Author Type: Physician Type: Progress Notes Filed: 01/30/2025 14:54 Note Text: DEPARTMENT OF HOSPITAL MEDICINE PROGRESS NOTE SERVICE DATE: 01/30/2025 SERVICE TIME: 9:11 AM Hospital Medicine/Primary Attending: Nic Rosado,* NIGHT AND WEEKEND COVERAGE: [place] COVERAGE: From 7am - 7pm, please call [phone] After 7pm, please call cross cover pager #[phone] Subjective INTERVAL HPI: No major events noted [...] -- 01/30/25 0000 activity - mobilize patient (ia,dc) VTE Prophylaxis: VTE prophylaxis appropriate Disposition: To be determined Plan of car (more content not included)... [facility] 01-29-2025 Discharge summary Note Date/Time January 29, 2025 4:35pm [facility] Medical Records Department [address] [place] [address] Emergency Department Summary 01/29/25 MR#: [id number] Acct: [id number] Name: CARLO MEDINA Rep #:[id number] : 1980 44 From: Vargas Rea DO [...] notes that this is a chronic issue. PFSH PFS Medical History Abdominal ascites CKD stage 3b, [...] Patient follow commands that he was at [facility] years 2024 Skin: Warm, dry, tact no [...] and he would prefer to go to [facility]. At 3:45 PM discussed the case with transfer line awaiting callback. Transfer line called back and notified us that the accepting physician is Dr. Burns who accept the patient to [facility]. Patient was notified is agreeable to plan. [...] % (Auto) 62.1 Lymph % (Auto) 28.4 [place] % (Auto) 8.2 Eos % (Auto) 0.3 [...] [place] 4[place] [address] H Total Protein 6.7 Albumin 3.5 Globulin 3.2 01/29/25 13:18 WBC RBC Hgb Hct MCV MCH MCHC RDW Std Deviation RDW Coeff of Juan Plt Count MPV Immature Gran % (Auto) Neut % (Auto) Lymph % (Auto) [place] % (Auto) Eos % (Auto) Baso % [...] volume ascites. 4. Severe cardiomegaly. Reading Location: [facility] Chest X-Ray 01/29/25 10:07 IMPRESSION: No acute pulmonary process, stable cardiomegaly Reading Location: [id number] Abdomen Ultrasound 01/29/25 11:34 IMPRESSION: Hepatic fibrosis/steatosis. Large volume ascites. Consider diagnostic and therapeutic paracentesis for further evaluation as clinically indicated. Reading Location: [facility] Discharge Plan Triage Chief Complaint: Shortness of [...] Primary [Primary Care Provider] - Print Language: Filipino Disposition Disposition: DC/Tx to Another Type of HCF What to do if you have Problems For any increased pain, shortness of breath, bleeding, nausea or vomiting, chestpain, or any unexpected problems, contact your Primary Care Provider. Call [facility] ([phone]) or report to the closest Emergency Room. Call 911 if necessary. 01/29/25 1635 <Electronically signed by Vargas Rea DO> Cosigner Signature (if applicable): CC: No Primary Care Physician ~ Signed [facility] Work Phone: 1(245) 978-603908-02-2025 Discharge summary [facility] Medical Records Department [address] [place] [address] Emergency Department Summary 01/29/25 MR#: [id number] Acct: [id number] Name: CARLO MEDINA Rep #:[id number] : 1980 44 From: Vargas Rea DO [...] notes that this is a chronic issue. [facility] Medical History Abdominal ascites CKD stage [...] Patient follow commands that he was at [facility] years 2024 Skin: Warm, dry, tact no [...] and he would prefer to go to [facility]. At 3:45 PM discussed the case with transfer line awaiting callback. Transfer line called back and notified us that the accepting physician is Dr. Burns who acceptthe patient to [facility]. Patient was notified is agreeable to plan. [...] % (Auto) 62.1 Lymph % (Auto) 28.4 [place] % (Auto) 8.2 Eos % (Auto) 0.3 [...] [place] 4[place] [address] H Total Protein 6.7 Albumin 3.5 Globulin 3.2 01/29/25 13:18 WBC RBC Hgb Hct MCV MCH MCHC RDW Std Deviation RDW Coeff of Juan Plt Count MPV Immature Gran % (Auto) Neut % (Auto) Lymph % (Auto) [place] % (Auto) Eos % (Auto) Baso % [...] volume ascites. 4. Severe cardiomegaly. Reading Location: [facility] Chest X-Ray 01/29/25 10:07 IMPRESSION: No acute pulmonary process, stable cardiomegaly Reading Location: [id number] Abdomen Ultrasound 01/29/25 11:34 IMPRESSION: Hepatic fibrosis/steatosis. Large volume ascites. Consider diagnostic and therapeutic paracentesis for further evaluation as clinically indicated. Reading Location: [facility] Discharge Plan Triage Chief Complaint: Shortness of [...] Primary [Primary Care Provider] - Print Language: Filipino Disposition Disposition: DC/Tx to Another Type of HCF What to do if you have Problems For any increased pain, shortness of breath, bleeding, nausea or vomiting, chestpain, or any unexpected problems, contact your Primary Care Provider. Call [facility] ([phone]) or report tothe closest Emergency Room. Call 911 if necessary. 01/29/25 1635 Cosigner Signature (if applicable): CC: No Primary Care Physician ~ Signed [facility]08-02-2025 Radiology Diagnostic study note [facility] Imaging Services [address] [place] [address] Abdomen Complete MR#: [id number] Acct: [id number] Name: CARLO MEDINA Rep #: [id number] : 1980 M 44 From: Rosie Vera MD PCP: Care Physician,No Primary Status: REG ER Study:Abdomen Complete Date of Exam: 08/24 Exam# [id number] Ordering Dr: Stewart Rea DO PROCEDURE: ABDOMEN [...] further evaluation as clinically indicated. Reading Location: [facility] CC: Dr. Vargas Rea DO; No Primary Care Physician ~ Associate Chemist: Signed [facility]08-02-2025 Radiology Diagnostic study note [facility] Imaging Services [address] [place], [place] [address] Abdomen/Pelvis W IV Cont ONLY MR#: [id number] Acct: [id number] Name: CARLO MEDINA Rep #: [id number] : 1980 M 44 From: Rosie Vera MD PCP: Care Physician,No Primary Status: REG ER Study:Abdomen/Pelvis W IV Cont ONLY Date of E xam: 01/29/25 Exam# [id number] Ordering Dr: Stewart Rea DO PROCEDURE: ABDOMEN/PELVIS [...] volume ascites. 4. Severe cardiomegaly. Reading Location: [facility] CC: Dr. Vargas Rae DO; No Primary Care Physician ~ Associate Chemist: Signed [facility]08-02-2025 Radiology Diagnostic study note [facility] Imaging Services [address] [place] [address] Chest PA and Lateral MR#: [id number] Acct: [id number] Name: CARLO MEDINA Rep #: [id number] : 1980 M 44 From: Leticia Rivers MD PCP: Care Physician,No Primary Status: REG ER Study:Chest PA and Lateral Date of Exam: 01/29/25 Exam# [id number] Ordering Dr: Stewart Rea DO PROCEDURE: CHEST [...] acute pulmonary process, stable cardiomegaly Reading Location: [id number] CC: Dr. Vargas Rea DO; No Primary Care Physician ~ Associate Chemist: Signed [facility]07-28-2025 History of Present illness Narrative* Mallika Quiles, [facility] - 01/24/2025 7:12 AM EDT TRANSITION CARE [...] oz) Patient was sent a message via MyChart including the link to the [facility] Heart Failure education video: No - MyChart is pending Initial contact with patient post discharge, spoke to patient, and verified that any applicable caregiver is active in patient's medical care. Patient identified by name and . Summary: -Pt discharged from [facility] on 01/21/25. -Medication review done Declined [...] HFrEF (heart failure with reduced ejection fraction) ([facility]) Date Noted: 10/21/2024 History of left bundle branch block (LBBB) Date Noted: 06/19/2024 Essential hypertension Date Noted: 06/08/2024 CKD (chronic kidney disease) Date Noted: 06/08/2024 Personal history of DVT (deep vein thrombosis) Date Noted: 01/20/2025 NICM (nonischemic cardiomyopathy) ([facility]) Date Noted: 01/21/2025 Scleral icterus Date Noted: [...] refused. Preferred pharmacy: e- [id number] [place] [address] - [address] [facility] - [phone] [address] [facility] [address] Estimated Creatinine Clearance: 40.9 mL/min (A) (based on SCr of 2.46 mg/dL (H)). Estimated Glomerular Filtration Rate (mL/min/1.73m ) Date Value 01/20/2025 32 (L) Additional follow up: Next 5 Appointments None Interventions Made: None Pharmacist Recommendations Made None Care Coordination: None at this time Time spent on patient: 0-15 minutes Mallika Brodman, RPh January 24, 2025 7:12 AM documented [facility]2025 NoteHNO ID: [id number] Author: MALLIKA QUILES RPh Service: Pharmacy Author [...] oz) Patient was sent a message via [employer] including the link to the [facility] Heart Failure education video: No - Rackuphart is pending Initial contact with patient post discharge, spoke to patient, and verified that any applicable caregiver is active in patient's medical care. Patient identified by name and . Summary: -Pt discharged from [facility] on 01/21/25. -Medication review done Declined [...] however the patient refused. Preferred pharmacy: e- [id number] [place] [address] - [address] [place] [address] - [phone] [place] [address] Estimated Creatinine Clearance: 40.9 mL/min (A) (based on SCr of 2.46 mg/dL (H)). Estimated Glomerular Filtration Rate (mL/min/1.73m?) (more content not included)...[facility]07-28-2025 NotePatient Outreach (PHRXRF) CARLO EMDINA ([id number]) 1980 M Date Time Provider Department 01/24/25 MALLIKA QUILES PHRXRF During your visit today, we recorded the following information about you: Mallika Quiles [facility] 01/24/2025 2:21 PM Signed TRANSITION [...] oz) Patient was sent a message via [employer] including the link to the [facility] Heart Failure education video: No - Rackuphart is pending Initial contact with patient post discharge, spoke to patient, and verified that any applicable caregiver is active in patient's medical care. Patient identified by name and . Summary: -Pt discharged from [facility] on 01/21/25. -Medication review done Declined [...] HFrEF (heart failure with reduced ejection fraction) ([facility]) Date Noted: 10/21/2024 History of left bundle branch block (LBBB) Date Noted: 06/19/2024 Essential hypertension Date Noted: 06/08/2024 CKD (chronic kidney disease) Date Noted: 06/08/2024 Personal history of DVT (deep vein thrombosis) Date Noted: 01/20/2025 NICM (nonischemic cardiomyopathy) ([facility]) Date Noted: 01/21/2025 Scleral icterus Date Noted: [...] refused. Preferred pharmacy: e- [id number] [place] [address] - [address] [facility] - [phone] [place] [address] P (more content not included)...[facility]07-25-2025 NoteHNO ID: [id number] Author: GABY GUIDRY RPh Service: Pharmacy Author [...] RPh January 21, 2025 1:10 PM Pager: [phone] Medication List CONTINUE taking these medications apixaban 5 mg tab(s) Commonly known as: ELIQUIS isosorbide dinitrate 20 mg tablet Commonly known as: ISORDIL STOP taking these medications hydrALAZINE 100 mg tablet Commonly known as: APRESOLINE losartan 50 mg tablet Commonly known as: [facility]25 NoteHNO ID: [id number] Author: MELISSA ORDAZ APRN.CNP Service: Cardiovascular Medicine Author Type: Nurse Practitioner Type: Progress Notes Filed: 01/21/2025 11:51 Note Text: [facility] CARDI[facility]ULAR [facility]ICINE PROGRESS NOTE Carlo Medina [id number] PRIMARY SERVICE: A, Hvi Clinical Senior Network Architect/Pa HOSPITAL DAY: # 2 INTERVAL HISTORY Less [...] most recent recordings reviewed PHYSICAL EXAM: 01/20/25204501/21/25 02101/21/25 0608 01/21/25 09 BP: 115/84 123/86 127/94 Pulse: 95 [...] of left bundle bran (more content not included)...[facility]07-25-2025 NoteHNO ID: [id number] Author: CORA SÁNCHEZ MD Service: Cardiovascular Medicine Author Type: Physician Type: Plan of Care Filed: 01/21/2025 06:30 Note Text: Patient has been refusing blood draws overnight. He wants labs to be drawn a bit late this morning. Lasix to be given later accordingly after the potassium results as his potassium was low on yesterday's labs.[facility] 01-20-2025 NoteHNO ID: [id number] Author: CHRISTOPHER GRIMES, ? Service: ? Author Type: Data Migration Consultant Type: Plan of Care Filed: 01/20/2025 09:02 [...] questions, please reach out to your medication quality improvement coordinator (rn). Thank you (Prices may vary at different pharmacy locations, this is the cost at [facility]07-23-2025 NoteHNO ID: [id number] Author: MANUELA SANTOS RT(R) Service: ? Author Type: Facilities Clerk Type: Progress Notes Filed: 01/19/2025 17:37 Note [...] PATIENT PRESENTS WITH AN IMPLANTABLE OR ATTACHED DATASTAGE DEVELOPER: No RADIOLOGY DEPARTMENT: Ultrasound PERIPHERAL IV DATA: Not applicable SIGNED BY: RT Cristine(R) January 19, 2025 5:37 [facility]07-23-2025 [id number] (AGENT OF COVID-19) RNA: Not detected INFLUENZA A RNA: Not detected INFLUENZA B RNA: Not detected RESPIRATORY SYNCYTIAL VIRUS (RSV) RNA: Not detectedGalion HospitalComment on above:Performed By: #### [id number] ####[facility] LABCLIA [id number] [address] [address] [place] [id number] Discharge summary Author Anshul Lemus [facility] Note Date/Time January 10, 2025 8:50 am [facility] Medical Records Department [address] [place] [address] Discharge Summary 01/10/25 0841 MR#: [id number] Acct: [id number] Name: CARLO MEDINA Rep #:[id number] : 1980 44 From: Anshul Lemus DO PCP: Care Physician,No Primary Status :ADM IN Location: [id number]- 1 Providers Date of Admission: 01/04/25 Primary [...] larger hospital that would do that including [facility], [facility] Et[facility]. Plan Feet edema: More notably [...] History of noncompliance: Per previous documentation from [facility] as well [facility]. 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 Anddiscussed with him in the presence that [...] Patient will follow-up with cardiology here at [facility] as he states he wishes to [...] is larger that perform those procedures including [facility], [facility], [facility]. If you have issues in regards to you passing out and having no recollection of the event, irregular heartbeat, call 911 and go to [facility] emergency room. As we discussed, you are at high risk of because of your weak heart and your abnormal heart rhythm (second-degree heart block Mobitz type II). Discharge Orders/Prescriptions Prescriptions: Continued isosorbide dinitrate 20 mg tablet 20 mg PO Q8H bumetanide 1 mg tablet 1 mg PO BID Eliquis 5 mg tablet 5 mg PO BID Referrals / Follow Up: [facility] [Provider Group] - Within 1 Month Care Physician,No Primary [Primary Care Provider] - [facility] [Outside] - Within 2 Weeks Deja Gregorio MD [Med Staff - Active Staff] - Disposition Disposition (needs filled in before D/C Order can be placed): Home, Self Care Charges/Coding Visit Charges Inpatient E&M: 97674 Disch Hosp >30min 01/10/25 0850 <Electronically signed by Anshul Lemus DO> Cosigner Signature (if applicable): CC: Dr. Anshul Lemus DO; Dr. Deja Gregorio MD; No Primary Care Physician~ Signed [facility] Work Phone: 1(114) 349-992607-14-2025 Progress note Author Anshul Lemus [facility] Note Date/Time January 10, 2025 8:41 am [facility] Medical Records Department [address] [place] [address] Progress Note - Hospitalist 01/10/25 0811 MR#: [id number] Acct: [id number] Name: CARLO MEDINA Rep #:[id number] : 1980 44 From: Anshul Lemus DO PCP: Care Physician,No Primary Status :ADM IN Location: [place] [address] Reason for Visit Chief Complaint: Shortness of [...] larger hospital that would do that including [facility], [facility] PLAN: Plan Feet edema: More [...] History of noncompliance: Per previous documentation from [facility] as well [facility]. 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 Anddiscussed with him in the presence that [...] Cosigner Signature (if applicable): CC: ~ Signed [facility] Work Phone: [phone]) 367-997707-14-2025 Discharge summary [facility] Medical Records Department [address] [place] [address] Discharge Summary 01/10/25840 MR#: [id number] Acct: [id number] Name: CARLO MEDINA Rep #:[id number] : 1980 44 From: Anshul Lemus DO PCP: Care Physician,No Primary Status :ADM IN Location: [facility] [id number] Providers Date of Admission: 01/04/25 Primary [...] larger hospital that would do that including [facility], [facility] Plan Feet edema: More notably [...] History of noncompliance: Per previous documentation from [facility] as well [facility]. 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 Anddiscussed with him in the presence that [...] bilirubin of total of 4.32. The ED bharathi childressread the patient has cirrhosis but I am [...] Patient will follow-up with cardiology here at [facility] as he states he wishes to [...] Provider: Care Physician,No Primary Consulting Providers: Lavon Capmo; Eugene Bucio; Deja Gregorio; Kaitlin Golden; Kalie [...] is larger that perform those procedures including [facility], [facility], [facility], [facility]. If you have issues in regards to you passing out and having no recollection of the event, irregular heartbeat, call 911 and go to [facility] emergency room. As we discussed, you are at high risk of because of your weak heart and your abnormal heart rhythm (second-degree heart block Mobitz type II). Discharge Orders/Prescriptions Prescriptions: Continued isosorbide dinitrate 20 mg tablet 20 mg PO Q8H bumetanide 1 mg tablet 1 mg PO BID Eliquis 5 mg tablet 5 mg PO BID Referrals / Follow Up: [facility] [Provider Group] - Within 1 Month Care Physician,No Primary [Primary Care Provider] - [facility] [Outside] - Within 2 Weeks Deja Gregorio MD [Med Staff - Active Staff] - Disposition Disposition (needs filled in before D/C Order can be placed): Home, Self Care Charges/Coding Visit Charges Inpatient E&M: 82302 Disch Hosp >30min 01/10/25 0850 Cosigner Signature (if applicable): CC: Dr. Anshul Lemus DO; Dr. Deja Gregorio MD; No Primary Care Physician~ Signed [facility]07-14-2025 [facility] Medical Records Department [address] [place] [address] Discharge Summary 01/10/25 0841 MR#: [id number] Acct: [id number] Name: CARLO MEDINA Rep #: [id number] : 1980 44 From: Anshul Lemus DO PCP: Care Physician,No Primary Status:ADM IN Location: [facility] [id number] Providers Date of Admission: 01/04/25 Primary Care Physician: Lluvia Primary Care Phys Consultations 01/07/25 10:30 Consult: [...] larger hospital that would do that including [facility], [facility] Plan Feet edema: More notably [...] History of noncompliance: Per previous documentation from [facility] as well as [facility]. Patient is steadfast in regards to doing only what he wants to do despite (more content not included)...[facility]07-14-2025 Progress note [facility] Medical Records Department [address] [place] [address] Progress Note - Hospitalist 01/10/25 0811 MR#: [id number] Acct: [id number] Name: CARLO MEDINA Rep #:[id number] : 1980 44 From: Anshul Lemus DO PCP: Care Physician,No Primary Status :ADM IN Location: [place] [address] Reason for Visit Chief Complaint: Shortness of [...] larger hospital that would do that including [facility], [facility] PLAN: Plan Feet edema: More [...] History of noncompliance: Per previous documentation from [facility]. 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 Anddiscussed with him in the presence that [...] Cosigner Signature (if applicable): CC: ~ Signed [facility]07-13-2025 Progress note Author Anshul Lemus [facility] Note Date/Time January 09, 2025 12:2 8pm [facility] System Medical Records Department [address] [place] [address] Progress Note - Hospitalist 01/09/25 0748 MR#: [id number] Acct: [id number] Name: CARLO MEDINA Pedro Rep #:[id number] : 1980 44 From: Anshul Jopperi DO PCP: Care Physician,No Primary Status :ADM IN Location: [place] [address]- Reason for Visit Reason for Visit: Diagnoses [...] History of noncompliance: Per previous documentation from [facility] well [facility]. Patient is steadfast in regards to doing [...] if he had reservations about going to [facility], or much of his care had [...] been here. Charges/Coding Visit Charges Inpatient E&M: 58177 Subs Hosp L3 01/09/25 1228 <Electronically signed by Anshul Lemus DO> Cosigner Signature (if applicable): CC: ~ Signed [facility] Work Phone: 1(809) 629-206107-13-2025 Progress note [facility] Medical Records Department [address] [place] [address] Progress Note - Hospitalist 01/09/25 0748 MR#: [id number] Acct: [id number] Name: CARLO MEDINA Rep #:[id number] : 1980 44 From: Anshul Lemus DO PCP: Care Physician,No Primary Status :ADM IN Location: [place] [address] 1 Reason for Visit Reason for Visit: [...] History of noncompliance: Per previous documentation from [facility] well [facility]. Patient is steadfast in regards to doing [...] if he had reservations about going to [facility], or much of his care had [...] been here. Charges/Coding Visit Charges Inpatient E&M: 29043 Subs Hosp L3 01/09/25 1228 Cosigner Signature (if applicable): CC: ~ Signed [facility]07-12-2025 Progress note Author Anshul Lemus [facility] Note Date/Time January 08, 2025 8:44 am [facility] Medical Records Department [address] [place] [address] Progress Note - Hospitalist 01/08/25 0750 MR#: [id number] Acct: [id number] Name: DANNA MEDINAMarguerite Vasquez Rep #:[id number] : 1980 44 From: Anshul Lemus DO PCP: Care Physician,No Primary Status :ADM IN Location: [place] [address] Reason for Visit Reason for Visit: Diagnoses [...] History of noncompliance: [facility] Patient is steadfast in [...] if he had reservations about going to [facility], or much of his care had been or [facility] where he had been recently. I told him that we could gethim into another hospital to be seen by other specialists. He continued to decline any transfer at this time. Greater than 50 minutes spent discussing with the patient, nursing as above. Charges/Coding Visit Charges Inpatient E&M: 06216 Subs Hosp L3 01/08/25 0844 <Electronically signed by Anshul Lemus DO> Cosigner Signature (if applicable): CC: ~ Signed [facility] Work Phone: 1(685) 762-726407-12-2025 Progress note [facility] Medical Records Department [address] [place] [address] Progress Note - Hospitalist 01/08/25 0750 MR#: [id number] Acct: [id number] Name: CARLO MEDINA Rep #:[id number] : 1980 44 From: Anshul Lemus DO PCP: Care Physician,No Primary Status :ADM IN Location: [place] [address] Reason for Visit Reason for Visit: Diagnoses [...] Labs: Laboratory Results - last 24 hr 07/11/25 05:25: Sodium 141, Potassium 3.1 L, Chloride [...] History of noncompliance: Per previous documentation from [facility] as well [facility]. Patient is steadfast in [...] if he had reservations about going to [facility], or much of his care had been or [facility] where he had been recently. I told him thatwe could gethim into another hospital to be seen by other specialists. He continued to decline any t ransfer at this time. Greater than 50 minutes spent discussing with the patient, nursing as above. Charges/Coding Visit Charges Inpatient E&M: 47258 Subs Hosp L3 01/08/25 0844 Cosigner Signature (if applicable): CC: ~ Signed [facility]07-11-2025 Progress note Author Anshul Lemus [facility] Note Date/Time January 07, 2025 4:40 [facility] Medical Records Department [address] [place] [address] Progress Note - Hospitalist 01/07/25 0803 MR#: [id number] Acct: [id number] Name: CARLO MEDINA Rep #:[id number] : 1980 44 From: Anshul Lemus DO PCP: Care Physician,No Primary Status :ADM IN Location: [place] [address] Reason for Visit Reason for Visit: Diagnoses [...] History of noncompliance: [facility]. Patient is steadfast in regards to doing [...] the floor. Charges/Coding Visit Charges Inpatient E&M: 41409 [facility] Hosp 01/07/25 1045 <Electronically signed by Anshul [...] Cosigner Signature (if applicable): cc: ~* Signed [facility] Work Phone: 1(793) 633-843407-11-2025 Progress note [facility] Medical Records Department [address] [place] [address] Progress Note - Hospitalist 01/07/25802 MR#: [id number] Acct: [id number] Name: CARLO MEDINA Rep #:[id number] : 1980 44 From: Anshul Lemus DO PCP: Care Physician,No Primary Status :ADM IN Location: [place] [address] Reason for Visit Reason for Visit: Diagnoses [...] History of noncompliance: Per previous documentation from [facility] as well [facility]. Patient is steadfast in regards to doing [...] the floor. Charges/Coding Visit Charges Inpatient E&M: 26601 Subs Hosp L3 01/07/25 1045 Cosigner Signature (if applicable): CC: ~ Signed ADDENDUM by Dr. Anshul Lemus DO on 01/07/25 at [address] Campo given his [...] Cosigner Signature (if applicable): cc: ~* Signed [facility]07-11-2025 Consult note Author Lavon Campo [facility] Note Date/Time January 07, 2025 2:37 pm [facility] Medical Records Department [address] [place] [address] Consultation - Cardiology 01/07/25 1336 MR#: [id number] Acct: [id number] Name: CARLO MEDINA Rep #:[id number] : 1980 44 From: Lavon Campo MD PCP: Care Physician,No Primary Status :ADM IN Location: [place] [id number]- Assessment & Plan Assessment/Plan (1) HFrEF (heart [...] and SGLT2 Recommend transferring the patient to [facility] for BiV evaluation. Noncompliance is a [...] over at [facility] and recently was over at [facility] in September. It is documented throughout his charts at [facility] as well as [facility] that he has a history of [...] av block with intermittent CHB. [facility] Medical History Kidney disease Non-smoker [...] applicable): CC: No Primary Care Physician~ Signed [facility] Work Phone: 1(416) 930-797607-11-2025 Consult note [facility] Medical Records Department [address] [place] [address] Consultation - Cardiology 01/07/25 1336 MR#: [id number] Acct: [id number] Name: ADAMCARLO L Rep #:[id number] : 1980 44 From: Lavon Campo MD PCP: Care Physician,No Primary Status :ADM IN Location: [place] [address] Assessment & Plan Assessment/Plan (1) HFrEF (heart [...] and SGLT2 Recommend transferring the patient to [facility] for BiV evaluation. Noncompliance is a [...] over at [facility] and recently was over at [facility] in September. It is documented throughout his charts at [facility] as well as [facility] that he has a history of [...] av block with intermittent CHB. [facility] Medical History Kidney disease Non-smoker [...] applicable): CC: No Primary Care Physician~ Signed [facility]07-10-2025 Progress note Author Anshul Lemus [facility] Note Date/Time January 06, 2025 2:08 pm [facility] System Medical Records Department [address] [place] [address] Progress Note - Hospitalist 01/06/25822 MR#: [id number] Acct: [id number] Name: CARLO MEDINA Rep #:[id number] : 1980 44 From: Anshul Lemus DO PCP: Care Physician,No Primary Status :ADM IN Location: [place] [address] Reason for Visit Reason for Visit: Diagnoses [...] % (Auto) 65.7, Lymph % (Auto) 25.5, [place] % (Auto) 7.4, Eos % (Auto) 0.6, [...] % (Auto) 61.6, Lymph % (Auto) 28.0, [place] % (Auto) 8.9, Eos % (Auto) 1.0, [...] History of noncompliance: Per previous documentation from [facility] as well [facility]. Patient is steadfast in regards to doing [...] case management. Charges/Coding Visit Charges Inpatient E&M: 08967 Subs Hosp L2 01/06/25 4368 <Electronically signed by Anshul Lemus DO> Cosigner Signature (if applicable): CC: ~ Signed [facility] Work Phone: 1(863) 216-158507-10-2025 Progress note [facility] Medical Records Department [address] [place] [address] Progress Note - Hospitalist 01/06/25822 MR#: [id number] Acct: [id number] Name: CRALO MEDINA Rep #:[id number] : 1980 44 From: Anshul Lemus DO PCP: Care Physician,No Primary Status :ADM IN Location: [place] [address] Reason for Visit Reason for Visit: Diagnoses [...] % (Auto) 65.7, Lymph % (Auto) 25.5, [place] % (Auto) 7.4, Eos % (Auto) 0.6, [...] % (Auto) 61.6, Lymph % (Auto) 28.0, [place] % (Auto) 8.9, Eos % (Auto) 1.0, [...] History of noncompliance: Per previous documentation from [facility] as well [facility]. Patient is steadfast in regards to doing [...] case management. Charges/Coding Visit Charges Inpatient E&M: 50400 Subs Hosp L2 01/06/25 140 Cosigner Signature (if applicable): CC: ~ Signed [facility]07-09-2025 Progress note Author Anshul Lemus [facility] Note Date/Time January 05, 2025 2:56p m [facility] Medical Records Department [address] [place] [address] Progress Note - Hospitalist 01/05/25804 MR#: [id number] Acct: [id number] Name: CARLO MEDINA Rep #:[id number] : 1980 44 From: Anshul Lemus DO PCP: Care Physician,No Primary Status :ADM IN Location: [place] [address] 1 Reason for Visit Reason for Visit: [...] % (Auto) 59.5, Lymph % (Auto) 30.6, [place] % (Auto) 9.1, Eos % (Auto) 0.3, [...] Sens 45 H, [place] [address] H, Total Protein 6.8, Albumin 3.6, Globulin 3.2, Lipase 15 01/04/25 11:20: Troponin T Hi Sens 2 Hr 42 H 01/04/25 13:36: Troponin T Hi Sens 4Hr 45 H Radiography Diagnostic Testing: Radiology Impression Chest X-Ray 01/04/25 08:25 IMPRESSION: Bibasilar atelectasis or pneumonia. Reading Location: [facility] Abdomen Ultrasound 01/04/25 11:03 IMPRESSION: 1. Ascites. 2. Fatty infiltration of the liver. Reading Location: [facility] Echocardiogram 01/04/25 14:32 Interpretation Summary Severely dilated [...] History of noncompliance: Per previous documentation from [facility] as well [facility]. Patient is steadfast in [...] his cardiomyopathy. Charges/Coding Visit Charges Inpatient E&M: 96928 Subs Hosp L2 01/05/25 7947 <Electronically signed by Anshul Lemus DO> Cosigner Signature (if applicable): CC: ~ Signed [facility] Work Phone: 1([phone]) 344-524707-09-2025 Progress note [facility] Medical Records Department [address] [place] [address] Progress Note - Hospitalist 01/05/25 08 MR#: [id number] Acct: [id number] Name: CARLO MEDINA Rep #:[id number] : 1980 44 From: Anshul Lemus DO PCP: Care Physician,No Primary Status :ADM IN Location: [place] [address] Reason for Visit Reason for Visit: Diagnoses [...] % (Auto) 59.5, Lymph % (Auto) 30.6, [place] % (Auto) 9.1, Eos % (Auto) 0.3, [...] HighSens 45 H, [place] [address] H, Total Protein 6.8, Albumin 3.6, Globulin 3.2, Lipase 15 01/04/25 11:20: Troponin T Hi Sens 2 Hr 42 H 01/04/25 13:36: Troponin T Hi Sens 4Hr 45 H Radiography Diagnostic Testing: Radiology Impression Chest X-Ray 01/04/25 08:25 IMPRESSION: Bibasilar atelectasis or pneumonia. Reading Location: [facility] Abdomen Ultrasound 01/04/25 11:03 IMPRESSION: 1. Ascites. 2. Fatty infiltration of the liver. Reading Location: [facility] Echocardiogram 01/04/25 14:32 Interpretation Summary Severely dilated [...] History of noncompliance: Per previous documentation from [facility] as well [facility]. Patient is steadfast in [...] his cardiomyopathy. Charges/Coding Visit Charges Inpatient E&M: 96179 Subs Hosp L2 01/05/25 5158 Cosigner Signature (if applicable): CC: ~ Signed [facility]07-08-2025 Discharge summary Author Deborah Penaloza [facility] Note Date/Time January 04, 2025 4:15p m [facility] Medical Records Department [address] [place] [address] Emergency Department Summary 01/04/25 MR#: [id number] Acct: [id number] Name: CARLO MEDINA Rep #:[id number] : 1980 44 From: Deborah Ravi PCP: Care Physician,No Primary Status :ADM IN Location: [place] [address] HPI History of Present Illness Chief Complaint: [...] increased swelling of his legs. He states henormally receives his care through [facility] because of his insurance but has [...] fluid overload. Note from inpatient encounter at [facility] on 10/26/2024 she is at [...] discharged home . Reported ejection fraction 15%. [facility] Medical History (Updated 01/04/25 @ 16:15 [...] appears significantly fluid overloaded. Discharge summary from [facility] on 10/17 through 10/26 reviewed. [...] went to cardiogenic shock was admitted to [facility]. There he refused IV therapies and base of intervention such as [place] or right heart catheterization. Lab work shows [...] % (Auto) 59.5 Lymph % (Auto) 30.6 [place] % (Auto) 9.1 Eos % (Auto) 0.3 [...] 4Hr 45 [place] [address] H Total Protein 6.8 Albumin 3.6 Globulin 3.2 Lipase 15 Radiography Diagnostic Testing: Clinical Impression(s) from Imaging Studies Chest X-Ray 01/04/25 08:25 IMPRESSION: Bibasilar atelectasis or pneumonia. Reading Location: [facility] Abdomen Ultrasound 01/04/25 11:03 IMPRESSION: 1. Ascites. 2. Fatty infiltration of the liver. Reading Location: [facility] Rhythm Strip Rhythm Strip: Sinus bradycardia [...] Management Discussion w/another healthcare provider: Hospitalist and Territory Outside Sales Manager (Cardiology-felt that patient was fine to be diuresed admitted to medicine service) Discharge Plan Dx/Rx/DC Orders Clinical Impression: CKD stage 3b, GFR 30-44 ml/min, HFrEF (heart failure with reduced ejection fraction), Elevated bilirubin, Abdominal ascites Disposition Disposition: Acute Care Hospital [facility] Discharge Date/Time: 01/04/25 14:00 What to do if you have Problems For any increased pain, shortness of breath, bleeding, nausea or vomiting, chestpain, or any unexpected problems, contact your Primary Care Provider. Call [facility] ([phone]) or report to the closest Emergency Room. Call 911 if necessary. 01/04/25 2258 <Electronically signed by Deborah Penaloza DO> Cosigner Signature (if applicable): CC: No Primary Care Physician ~ Signed [facility] Work Phone: 1(699) 817-687607-08-2025 Discharge summary [facility] Medical Records Department [address] [place] [address] Emergency Department Summary 01/04/25 MR#: [id number] Acct: [id number] Name: CARLO MEDINA Rep #:[id number] : 1980 44 From: Deborah Ravi PCP: Care Physician,No Primary Status :ADM IN Location: [place] [address] HPI History of Present Illness Chief Complaint: [...] legs. He states henormallyreceives his care through [facility] because of his insurance but has had a hard time following up and getting to appointments because of transportation andthe distance. States he has been compliant with his medications. Is in the process of trying to establish down here in [place]. Denies any chest pain. Denies any fever or chills. Denies any change in urination. Patient does notknow what triggered his fluid overload. Note from inpatient encounter at [facility] on 10/26/2024 she is at [...] discharged home . Reported ejection fraction 15%. [facility] Medical History (Updated 01/04/25 @ 16:15 [...] appears significantly fluid overloaded. Discharge summary from [facility] on 10/17 through 10/26 reviewed. [...] went to cardiogenic shock was admitted to [facility]. There he refused IV therapies and base of intervention such as [place] or right heart catheterization. Lab work shows elevation of his creatinine of 2.03 with mild elevation of his BUN of 30. His creatinine baseline appears to be 2.0 per [facility] documentation. He has elevation of his [...] % (Auto) 59.5 Lymph % (Auto) 30.6 [place] % (Auto) 9.1 Eos % (Auto) 0.3 [...] 4Hr 45 [place] [address] H Total Protein 6.8 Albumin 3.6 Globulin 3.2 Lipase 15 Radiography Diagnostic Testing: Clinical Impression(s) from Imaging Studies Chest X-Ray 01/04/25 08:25 IMPRESSION: Bibasilar atelectasis or pneumonia. Reading Location: [facility] Abdomen Ultrasound 01/04/25 11:03 IMPRESSION: 1. Ascites. 2. Fatty infiltration of the liver. Reading Location: [facility] Rhythm Strip Rhythm Strip: Sinus bradycardia Rate: [...] Management Discussion w/another healthcare provider: Hospitalist and Territory Outside Sales Manager (Cardiology-felt that patient was fine to be diuresed admitted to medicine service) Discharge Plan Dx/Rx/DC Orders Clinical Impression: CKD stage 3b, GFR 30-44 ml/min, HFrEF (heart failure with reduced ejection fraction), Elevated bilirubin, Abdominal ascites Disposition Disposition: Acute Care Hospital [facility] Discharge Date/Time: 01/04/25 14:00 What to do if you have Problems For any increased pain, shortness of breath, bleeding, nausea or vomiting, chestpain, or any unexpected problems, contact your Primary Care Provider. Call [facility] ([phone]) or report tothe closest Emergency Room. Call 911 if necessary. 01/04/25 1615 Cosigner Signature (if applicable): CC: No Primary Care Physician ~ Signed [facility]07-08-2025 History and physical note Author Anshul Lemus [facility] Note Date/Time January 04, 2025 2:06p m [facility] Medical Records Department [address] [place] [address] H&P Exam - Hospitalist 01/04/25 1351 MR#: [id number] Acct: [id number] Name: CARLO MEDINA Rep #:[id number] : 1980 44 From: Anshul Lemus DO PCP: Care Physician,No Primary Status :ADM IN Location: [facility] [id number] HPI - General General Date of [...] time. Has had numerous hospitalizations over at [facility] and recently was over at [facility] in September. It is documented throughout his charts at [facility] as well as [facility] that he has a history of [...] time to think about it. [facility] Medical History (Updated 01/04/25 @ [...] % (Auto) 59.5, Lymph % (Auto) 30.6, [place] % (Auto) 9.1, Eos % (Auto) 0.3, [...] Sens 45 H, [place] [address] H, Total Protein 6.8, Albumin 3.6, Globulin 3.2, Lipase 15 01/04/25 11:20: Troponin T Hi Sens 2 Hr 42 H EKG Initial EKG: Attestation: I personally reviewed and interpreted this EKG as follows: EKG Rhythm Intrepretation: Sinus Bradycardia Imaging Radiology Impression Chest X-Ray 01/04/25 08:25 IMPRESSION: Bibasilar atelectasis or pneumonia. Reading Location: [facility] Abdomen Ultrasound 01/04/25 11:03 IMPRESSION: 1. Ascites. 2. Fatty infiltration of the liver. Reading Location: [facility] Assessment & Plan Assessment/Plan (1) HFrEF (heart [...] History of noncompliance: Per [facility] documentation [facility] well [facility]. Patient is steadfast in regards to doing [...] his cardiomyopathy. Charges/Coding Visit Charges Inpatient E&M: 89545 Init Hosp L3 01/04/25 1403 <Electronically signed by Anshul Lemus DO> Cosigner Signature (if applicable): CC: Dr. Anshul Lemus DO; No Primary Care Physician~ Signed [facility] Work Phone: 1(127) 550-940707-08-2025 Evaluation note* Diagnosis Onset Date Resolution Status Admit Date CKD stage 3b, GFR 30-44 ml/min acute January 04, 2025 1:40pm Elevated bilirubin acute January 042024 1:40pm Heart block acute January 04 1:40pm HFrEF (heart failure with re duced ejection fraction) acute January 04 1:40pm Hypokalemia acute January 04 1:40pm [facility] Work Phone: 1(104) 985-304807-08-2025 Evaluation note* Diagnosis Onset Date Resolution Status Admit Date Heart block acute January 04 1:40pm Hypokalemia resolved January 04 1:40pm CKD stage 3b, GFR 30-44 ml/min inact dai January 04, 2025 1:40pm Elevated bilirubin inactive January 042024 1:40pm HFrEF (heart failure with reduced ejection fraction) inactive January 04, 2025 1:40pm [facility] Work Phone: 1(373) 477-731107-08-2025 History and physical note [facility] Medical Records Department [address] [place] [address] H&P Exam - Hospitalist 01/04/25 1351 MR#: [id number] Acct: [id number] Name: CARLO MEDINA Rep #:[id number] : 1980 44 From: Anshul Lemus DO PCP: Care Physician,No Primary Status :ADM IN Location: [facility] [id number]- 1 HPI - General General Date of Service: 01/04/25 Chief Complaint: Shortness of breath. Edema. HPI Narrative CARLO MEDINA, is a 44 M who presents with progressive shortness of breath and edema. Patient is [id number] male with a history of nonischemic cardiomyopathy with an ejection fraction of 20%. States that he had a left heart catheterization that showed no obstructive coronary disease. They have attempted right heart catheterization but was unsuccessful and the patient declined further attempts. Resents with increased weight gain of about 10 pounds with period time. Has had numerous hospitalizations over at [facility] and recently was over at [facility] in September. It is documented throughout his charts at [facility] as well as [facility] that he has a history of [...] time to think about it. [facility] Medical History (Updated 01/04/25 @ [...] % (Auto) 59.5, Lymph % (Auto) 30.6, [place] % (Auto) 9.1, Eos % (Auto) 0.3, [...] HighSens 45 H, [place] [address] H, Total Protein 6.8, Albumin 3.6, Globulin 3.2, Lipase 15 01/04/25 11:20: Troponin T Hi Sens 2 Hr 42 H EKG Initial EKG: Attestation: I personally reviewed and interpreted this EKG as follows: EKG Rhythm Intrepretation: Sinus Bradycardia Imaging Radiology Impression Chest X-Ray 01/04/25 08:25 IMPRESSION: Bibasilar atelectasis or pneumonia. Reading Location: [facility] Abdomen Ultrasound 01/04/25 11:03 IMPRESSION: 1. Ascites. 2. Fatty infiltration of the liver. Reading Location: [facility] Assessment & Plan Assessment/Plan (1) HFrEF (heart [...] History of noncompliance: Per previous documentation from [facility] as well [facility]. Patient is steadfast in regards to doing [...] his cardiomyopathy. Charges/Coding Visit Charges Inpatient E&M: 94752 Init Hosp L3 01/04/25 1406 Cosigner Signature (if applicable): CC: Dr. Anshul Lemus, DO; No Primary Care Physician~ Signed [facility]07-08-2025 Radiology Diagnostic study note [facility] Imaging Services [address] [place], [place] [id number] Abdomen Limited MR#: [id number] Acct: [id number] Name: CARLO MEDINA Rep #: [id number] : 1980 M 44 From: Mallorie Ford MD PCP: Care Physician,No Primary Status: REG ER Study:Abdomen Limited Date of Exam: 02/21 Exam# [id number] Ordering Dr: Kelly Penaloza DO EXAM: US Abdomen Limited, Right Upper Quadrant CLINICAL INDICATION: ELEVATED LIVER ENZYMES AND BILI TECHNIQUE: Real-time ultrasound of the right upper quadrant with image documentation. COMPARISON: No relevant prior studies available. FINDINGS: LIVER: Liver measures up to 15.9 cm. Fatty infiltration of the liver. No intrahepatic bile duct dilation. GALLBLADDER: Negative Melendez's sign was reported by the town clerk. No gallstones. COMMON BILE DUCT: Unremarkable as [...] Fatty infiltration of the liver. Reading Location: [facility] CC: Dr. Deborah Penaloza DO; No Primary Care Physician ~ Associate Chemist: Signed [facility]07-08-2025 Radiology Diagnostic study note [facility] Imaging Services [address] [place] [id number] Chest PA and Lateral MR#: [id number] Acct: [id number] Name: CARLO MEDINA Rep #: [id number] : 1980 M 44 From: Mallorie Ford MD PCP: Care Physician,No Primary Status: [facility] ER Study:Chest PA and Lateral Date of Exam: 01/04/25 Exam# [id number] Ordering Dr: Kelly Penaloza DO EXAM: XR Chest, 2 Views CLINICAL INDICATION: SOB TECHNIQUE: Frontal and lateral views of the chest. COMPARISON: No relevant prior studies available. FINDINGS: LUNGS AND PLEURAL SPACES: Bibasilar atelectasis or pneumonia. No pneumothorax. HEART: Unremarkable. No cardiomegaly. MEDIASTINUM: Unremarkable. Normal mediastinal contour. BONES/JOINTS: Unremarkable. No acute fracture. RAD/Chest PA and Lateral IMPRESSION: Bibasilar atelectasis or pneumonia. Reading Location: [facility] CC: Dr. Deborah Penaloza, DO; No Primary Care Physician ~ Associate Chemist: Signed [facility]06-27-2025 Telephone encounter Note* Telephone Encounter - Jaden Milner - 12/24/2024 4:00 PM EDT Last visit with PCP (YUVAL GAYLE) was 09/17/2024 No future appointment with PCP (YUVAL GAYLE) Thank you. [id number] Miscellaneous Notes* Telephone Encounter - Jaden Milner - 12/24/2024 4:00 PM EDT Last visit with PCP (YUVAL GAYLE) was 09/17/2024 No future appointment with PCP (YUVAL GAYLE) Thank you. documented in this [id number] Telephone encounter Note* Telephone Encounter - Yuval [...] 162 [phone] 212 [id number] Miscellaneous Notes* Telephone Encounter - Yuval Gayle MD - 12/13/2024 4:37 PM EDT Images from the original note were not included. Rx sent Please schedule follow-up Chart reviewed Most recent visit with ga was on 09/17/2024 There are no future [...] 212 * Telephone Encounter - Cornelia Dash [facility] - 12/13/2024 1:20 PM EDT Requested Prescriptions Pending Prescriptions Disp Refills Apixaban (ELIQUIS) 5 MG tablet 28 Tablet 0 Sig: Take 1 Tablet by mouth 2 times daily. Last visit with PCP (YUVAL GAYLE) was 09/17/2024 No future appointment with PCP (YUVAL GAYLE) documented in this [id number] Telephone encounter Note* Telephone Encounter - Cornelia Dash RPh - 12/13/2024 1:20 PM EDT Requested Prescriptions Pending Prescriptions Disp Refills Apixaban (ELIQUIS) 5 MG tablet 28 Tablet 0 Sig: Take 1 Tablet by mouth 2 times daily. Last visit with PCP (YUVAL GAYLE) was 09/17/2024 No future appointment with PCP (YUVAL GAYLE) [id number] Telephone encounter Note* Telephone Encounter - Eva Isaacs MA - 12/06/2024 8:47 AM EDT No response letter printed and mailed to patient [id number] Miscellaneous Notes* Telephone Encounter - Eva Isaacs MA - 12/06/2024 8:47 AM EDT No response letter printed and mailed to patient * Telephone Encounter - Eva Isaacs MA - 12/02/2024 2:43 PM EDT Attempted to contact patient. Left voicemail message on listed contact # [phone]. Asked patient to reference #99 when calling back to our office. Ok to relay message below. Please assist patient in scheduling appointment when he returns call. * Telephone Encounter - Eva Isaacs MA - 11/29/2024 11:51 AM EDT Attempted to contact patient. Left voicemail message on listed contact # to call [employer] [phone]. Asked patient to reference #99 when calling [...] if continued therapy necessary. documented in this [id number] Telephone encounter Note* Telephone Encounter - Eva Isaacs MA - 12/02/2024 2:43 PM EDT Attempted to contact patient. Left voicemail message on listed contact # to call [employer] [phone]. Asked patient to reference #99 when calling back to our office. Ok to relay message below. Please assist patient in scheduling appointment when he returns call. [id number] Miscellaneous Notes* Telephone Encounter - Eva Isaacs MA - 12/02/2024 2:43 PM EDT Attempted to contact patient. Left voicemail message on listed contact # to call [employer] [phone]. Asked patient to reference #99 when calling back to our office. Ok to relay message below. Please assist patient in scheduling appointment when he returns call. * Telephone Encounter - Eva Isaacs MA - 11/29/2024 11:51 AM EDT Attempted to contact patient. Left voicemail message on listed contact # to call [employer] [phone]. Asked patient to reference #99 when calling [...] if continued therapy necessary. documented in this [id number] Telephone encounter Note* Telephone Encounter - Eva Isaacs MA - 11/29/2024 11:51 AM EDT Attempted to contact patient. Left voicemail message on listed contact # [facility] [phone]. Asked patient to reference #99 when calling back to our office. Ok to relay message below. Please assist patient in scheduling appointment, [id number] Miscellaneous Notes* Telephone Encounter - Eva Isaacs MA - 11/29/2024 11:51 AM EDT Attempted to contact patient. Left voicemail message on listed contact # to call [employer] [phone]. Asked patient to reference #99 when calling [...] if continued therapy necessary. documented in this [id number] Telephone encounter Note* Telephone Encounter - Jovana Patel - 11/26/2024 11:01 AM EDT Patient's significant other called in checking on the refill request for Apixaban (ELIQUIS) 5 MG tablet. [facility] gave the patient a 3-day emergency supply because he is completely out of medication. Please contact the patient/pharmacy to discuss this issue as well as a plan of action. [id number] Miscellaneous Notes* Telephone Encounter - Jovana Patel [...] if continued therapy necessary. documented in this [id number] Telephone encounter Note* Telephone Encounter - Leatha Batista PharmD - 11/23/2024 9:20 AM EDT This patient is requesting a refill on a medication that was prescribed in an ED, Urgent Care or during a Hospital Discharge. Please approve if appropriate or contact patient if not appropriate. Pharmacy was unable to determine appropriateness or if continued therapy necessary. [facility] Work Phone: 1(806) 226-492404-30-2025 Telephone encounter Note* Telephone Encounter - Radha Flores RN - 10/27/2024 11:03 AM EDT Transitional Care Management Contact Initial communication post-discharge: 1st attempt: 10/27/24, 11:03 AM -Left message 2nd attempt: 10/29/24, 10:52 AM -Left message 3rd attempt: 11/01/24, 8:56 AM-Left message Letter mailed: 11/01/24 Patient no longer meet Humanities Professor Coordination services due to one or more of the following: [] Well connected to medical home and/or other services [] Identified Needs/Goals have been met [x] Unable to contact patient (at least 3 documented attempts) [] Is not adherent to Care Plan or Goals [] Declined Services [] Rolled off insurance plan or no longer patient [] Living situation changed; ie. SNF, Half-Way, Hospice [] PCP recommends deferral [] Patient transferred to Press Clipper or Reviewer Sales [] No readmissions 30 days post discharge. [] SEMAJ BeeN, extractor machine operatorComputer Analyst [phone] [id number] Miscellaneous Notes* Telephone Encounter - Radha Flores RN - 10/27/2024 11:03 AM EDT Transitional Care Management Contact Initial communication post-discharge: 1st attempt: 10/27/24, 11:03 AM -Left message 2nd attempt: 10/29/24, 10:52 AM -Left message 3rd attempt: 11/01/24, 8:56 AM-Left message Letter mailed: 11/01/24 Patient no longer meet Humanities Professor Coordination services due to one or more of the following: [] Well connected to medical home and/or other services [] Identified Needs/Goals have been met [x] Unable to contact patient (at least 3 documented attempts) [] Is not adherent to Care Plan or Goals [] Declined Services [] Rolled off insurance plan or no longer MH patient [] Living situation changed; ie. SNF, Half-Way, Hospice [] PCP recommends deferral [] Patient transferred to Press Clipper or Reviewer Sales [] No readmissions 30 days post discharge. [] DESEAN Bee, extractor machine operatorComputer Analyst [phone] documented in this [id number] History of Present illness Narrative* Giselle Pierre [...] continues to refuse medical care/medications. Selena Feliz PROPELLANT CHARGE LOADER, PROJECT FINANCIAL ANALYST Inpatient Reviewer Sales * Giselle Pierre RN - 10/26/2024 9:01 [...] does not follow with , lives near [facility] Problems as of 10/25/2024 Acute deep vein thrombosis (DVT) of lower extremity (HCC) Acute kidney injury superimposed on stage 3b chronic kidney disease Pneumonia of right lower lobe due to infectious organism Acute on chronic HFrEF (heart failure with reduced ejection fraction) (HCC) Cirrhosis (HCC) Hypomagnesemia Hypokalemia RESOLVED: Cardiogenic shock (HCC) Ramos Pope MD, [facility] Medicine Physician Felt Cementertransporter radiology * Anshul Laird, THOMAS-ASSOCIATE FINANCIAL PLANNER - 10/25/2024 1:16 PM EDT [facility] Medicine Progress Note Carlo Medina Age [age] year old male [id number] AC4-703/2 Admitted 10/17/2024 6:40 PM Hospital Day: [...] started in the CICU. Transferred out to [facility] in stable condition. Patient completed abxcourse [...] - liver clinic as an outpatient - [facility] when patient willing Hypomagnesemia Level 1.5 10/21 - only agreeable to mag oxide - repeat level in am Hypokalemia Level 3.2 10/21 - he declined potassium PO and IV - BMP as patient will allow Acute deep vein thrombosis (DVT) of lower extremity (HCC) - apixaban 5 mg po bid ADDENDUM 165 -labs this afternoon showed WBC of 14.1, [...] he allows GDMT optimization. Anshul Laird MSN, LONG GOODS DRIER, AGACNP- Team 9- Hospital Medicine Pager # [phone] * Selena Feliz LSW - 10/25/2024 10:54 AM EDT SOCIAL WORK Per interdisciplinary rounds, pt is not medically cleared for discharge. NIR is 10/26/24. PT to work with pt for homegoing recommendations. Plan is anticipated for pt to discharge home, pending PT eval. SW will continue to follow. Selena Feliz MSW, PROJECT FINANCIAL ANALYST Inpatient Reviewer Sales * Sara Tineo MD - 10/24/2024 12:04 PM EDT Images from the original note were not included. Hospital Medicine Progress Note Carlo Medina Age [age] year old male [id number] AC4-703/2 Admitted 10/17/2024 6:40 PM Hospital Day: [...] started in the CICU. Transferred out to [facility] in stable condition. Patient completed abxcourse [...] 1+ peripheral edema Skin: warm, dry Neuro: physiognomist grossly intact, no focal neurological deficits, A&Ox3 [...] HFP when patient willing Hypomagnesemia Level 1.5 24 - only agreeable to mag oxide - [...] attempting and insisted on a specialist from INSPECTOR WATCH ASSEMBLY or IV Team. Rapid Response paged; to bedside to attempt IV placement. Missed first attempt. Pt refused any further attempts at IV placement. MD Tineo notified. * Sara Tineo MD - 10/23/2024 8:32 AM EDT Images from the original note were not included. Hospital Medicine Progress Note Carlo Medina Age [age] year old male [id number] AC4-703/2 Admitted 10/17/2024 6:40 PM Hospital Day: [...] started in the CICU. Transferred out to [facility] in stable condition. Patient completed abxcourse [...] 1+ peripheral edema Skin: warm, dry Neuro: physiognomist grossly intact, no focal neurological deficits, A&Ox3 [...] complete course of linezolid and cipro today (d7/) Acute on chronic HFrEF (heart failure with [...] home when medically cleared Sara Tineo MD [facility] Medicine * Katie Christy LPN - [...] follow. No weekend SW needs. Selena Feliz PROPELLANT CHARGE LOADER, PROJECT FINANCIAL ANALYST Inpatient Reviewer Sales * Sara Tineo MD - 10/22/2024 7:21 AM EDT Images from the original note were not included. Hospital Medicine Progress Note Carlo Medina Age [age] year old male [id number] AC4-703/2 Admitted 10/17/2024 6:40 PM Hospital Day: [...] started in the CICU. Transferred out to [facility] in stable condition INTERVAL HPI: Patient [...] 1+ peripheral edema Skin: warm, dry Neuro: physiognomist grossly intact, no focal neurological deficits, A&Ox3 [...] home pending medical clearance. Sara Tineo MD [facility] Medicine * Katie Christy LPN - [...] then. Dr. Barraza notified. * Leatha Mckeon APRN-VIKKI - 10/21/2024 5:35 PM EDT Hospital Medicine Progress Note Carlo Medina Age [age] year old male [id number] AC4-703/2 Admitted 10/17/2024 6:40 PM Hospital Day: [...] started in the CICU. Transferred out to [facility] in stable condition INTERVAL HPI: In [...] for outcome of this meeting. JAMIE Ford, MADDIE Inpatient Reviewer Sales * Jim Wynn MD - 10/21/2024 10:47 AM EDT Images from the original note were not included. [facility] CICU - Progress Note Carlo Medina Age [age] year old male ROOM: [place] [address] Admitted 10/17/2024 6:40 PM Hospital Day: 5 [...] Partial treatment with likely repeat admissions and half-way decline, or taking an approach that would [...] pending results of today's team introduction to [facility]. -Strict I/Os -K > 4, Mg [...] diet and wants regular diet . Jim Wynn MD * Jim Wynn MD - 10/20/2024 7:24 AM EDT Images from the original note were not included. [facility] CICU - Progress Note Carlo Medina Age [age] year old male ROOM: [place] [address] Admitted 10/17/2024 6:40 PM Hospital Day: 4 [...] as documented in the resident's/fellow's note. Jim Wynn MD * Dayna Sanchez RN - 10/19/2024 [...] SERVICES No ADMISSION INSURANCE Private Insurance (Medical Clive) TRANSPORTATION TO AND/OR FROM APPOINTMENTS Family/Friend Provides Ride HOME OXYGEN No HOME HEALTH CARE PRIOR TO ADMISSION No DIALYSIS No DISCUSSSED WHAT HELP PATIENT WOULD NEED Yes SDOH Completed? Yes SDOH Risks Addressed - Do Not complete until all required hernandez are completed Yes DISCHARGE DISPOSITION Home SW following for appropriate dc planning. JAMIE Ford, PROJECT FINANCIAL ANALYST Inpatient Reviewer Sales * Abraham Jean Baptiste, Al - 10/19/2024 [...] PharmD Department of Pharmacy Services * Jim Wynn MD - 10/19/2024 8:20 AM EDT Images from the original note were not included. [facility] CICU - Progress Note Carlo Medina Age [age] year old male ROOM: [place] [address] Admitted 10/17/2024 6:40 PM Hospital Day: 3 [...] times counselling the patient as well. Jim Wynn MD * Efren Messina RN - 10/19/2024 [...] for m edication administration.Efren Escalante RN * Xeina Taylor RN - 10/18/2024 1:57 PM EDT /GREG Myers notified of critical lactic acid value of 4.8. /GREG Myers read back critical results. New orders received. * Alex Garay [facility] - 10/18/2024 5:39 AM EDT Pharmacokinetic Dosing Service - VANCOMYCIN Name: Carlo L Albion Age:[age] year old Gender: male Ht: 6' [...] 32.36 mL/min (A) Culture(s): PENDING Alex Garay RP - Department of Pharmacy Services documented in this [id number] [facility] course Narrative* Anshul Laird APRN-CNP - 10/26/2024 9:36 AM EDT Images from the original note were not included. DISCHARGE SUMMARY [address] [address] Carlo Medina Date of : 1980 44 year old male Attending Anshul Laird APRN-CNP Date of Admission 10/17/2024 Date of Discharge 10/26/2024 Final Diagnosis: Acute on chronic HFrEF (heart failure with reduced ejection fraction) ([facility]) Hospital Problems as of 10/26/2024 * (Principal) [...] Referral Type: Service Level Authorization Referral Location: [facility] Number of Visits Requested: 3 Expiration Date: 10/26/25 Future Appointments Date Time Provider Department Center 11/12/2024 8:40 AM Jamal Geronimo MD [facility] 11/17/2024 2:20 PM Disha Brenner MD [facility] He Condition at Discharge unchanged Symptoms to [...] 16.82 (H) Legend: (H) High RESPIRATORY CULTURE, [facility] Order: [id number] Collected 10/18/2024 13:41 Status: Final result Visible to patient: Yes (not seen) Specimen Information: Sputum, expectorated; Respiratory 0 Result Notes Resp Culture Squamous Epithelial Cells present. Recommend submission of another specimen. Resulting Agency: [facility] Specimen Collected: 10/18/24 13:41 Last Resulted: 10/18/24 [...] - TSH: N/A EKG: Sinus Tachycardia, Right Arden Deviation, RBBB Imaging: - CXR 10/17/24 demonstrating [...] started in the CICU. Transferred out to [facility] in stable condition. Patient completed abx [...] to follow up with HF here in [place] for further discussion. He does not wish to be palliative care/hospice at this time. Follow Up -f/u Mag ANNETTE on -f/u with Dr. Geronimo in cardiology 11/12 -f/u with liver clinic for cirrhosis on 11/17 -f/u with PCP in [place], refusing to get PCP here I provided [...] illness requiring hospital care. Anshul Laird MSN, LONG GOODS DRIER, AGACNP- Team 9- Hospital Medicine Pager # [phone] documented in this [id number] Hospital Discharge instructions* Discharge Instructions* Anshul Laird APRN-CNP - 10/26/2024 9:36 AM EDT Please follow up with heart failure doctor due to your ejection fraction being 15%. Please get repeat labs this week and follow up with your family doctor * Attachments The following attachments cannot be sent through Care Everywhere. * Acute Kidney Injury Discharge Instructions (Filipino) * Heart Failure Discharge Instructions, Adult (Filipino) documented in this [id number] NotePatient called stating IV was causing him pain. IV was assessed no obvious obstruction or infiltrates. Patient given education on the risk of having no IV access. Patient still requesting IV removal. [facility] 1999[facility] [id number] Evaluation + Plan note* Assessment & Plan Note - Anshul Laird APRN-CNP - 10/25/2024 1:26 PM EDTAssociated Problem(s): Pneumonia of right lower lobe due to infectious organism No leukocytosis, afebrile, stable on room air, procal elevated to 16.8 on admission Given recent hospitalization, treating for HAP - completed course of linezolid and cipro today 10/24 [id number] Evaluation + Plan note* Assessment & Plan [...] as an outpatient - continue GOC discussions YpztpTekaid28-21-4701 Evaluation + Plan note* Assessment & Plan Note - Anshul Laird APRN-CNP - 10/25/2024 1:26 PM EDTAssociated Problem(s): Acute kidney injury superimposed on stage 3b chronic kidney disease Max creatinine this stay 3.2, down trending to 1.46 which appears to be better than baseline - avoid nephrotoxic agents - repeat bmp as patient will allow MgqczYutmqp57-47-5961 Evaluation + Plan note* Assessment & Plan Note - Anshul Laird APRN-CNP - 10/25/2024 1:26 PM EDTAssociated Problem(s): Cirrhosis (HCC) With hyperbili - liver clinic as an outpatient - HFP when patient willing [id number] Evaluation + Plan note* Assessment & Plan Note - Anshul Laird APRN-CNP - 10/25/2024 1:26 PM EDTAssociated Problem(s): Hypomagnesemia Level 1.5 10/21 - only agreeable to mag oxide - repeat level in am RdgbmTnhoqz46-48-7465 Evaluation + Plan note* Assessment & Plan Note - Anshul Laird APRN-CNP - 10/25/2024 1:26 PM EDTAssociated Problem(s): Hypokalemia Level 3.2 10/21 - he declined potassium PO and IV - BMP as patient will allow [id number] Evaluation + Plan note* Assessment & Plan Note - Anshul Laird APRN-CNP - 10/25/2024 1:26 PM EDTAssociated Problem(s): Acute deep vein thrombosis (DVT) of lower extremity (HCC) - apixaban 5 mg po bid IrfbgYciosi95-77-6352 Miscellaneous Notes* Assessment & Plan Note - [...] Assessment & Plan Note - Anshul Laird APRN-VIKKI - 10/25/2024 1:26 PM EDT Associated Problem(s): [...] PM EDT Associated Problem(s): [facility]CC[facility] as an [facility] - HFP when patient willing * Assessment & Plan Note - Sraa Tineo MD - 10/24/2024 12:08 PM EDT [...] AM EDT Associated Problem(s): Cirrhosis (HCC) [facility] as an outpatient - HFP when [...] (d7/7) * Assessment & Plan Note - aSra Tineo MD - 10/23/2024 11:42 AM EDT [...] Assessment & Plan Note - Leatha Mckeon APRN-ASSOCIATE FINANCIAL PLANNER - 10/21/2024 6:01 PM EDT Associated Problem(s): [...] started in the CICU. Transferred out to [facility] in stable condition. Patient completed abxcourse [...] Time): Dr. Tineo, Medicine Team 6, 15:35 [facility] Transfer Note Hospital Course: Carlo Medina [...] HAP being treated with ciprofloxacin/linezolid. Transfer to [facility]. Vitals: BP 89/74 (BP Location: left arm) [...] DO Internal Medicine, PGY-2 documented in this [id number] Consult note* Maya Hoff, RD - 10/25/2024 10:56 AM EDT Images [...] (significant). Estimated Energy Needs: using 68 kg 1710-1560 kcal/d 30-35 kcal/kg 80-95 gm pro/d 1.2-1.4 [...] started in the CICU. Transferred out to [facility] in stable condition. Pt completed abx course 10/23. Course c/bpt continued intermittent refusal of medications. Pt reported continued cough and SOB - requested supplemental O2 despite good saturations. After discussion about need for diuretics to help alleviatefluid build up which is causing SOB, pt agreed to Bumex. RD Consult referred by [employer] for wt loss. Pt denied any recent [...] Hoff MS, RD, LD, CNSC Personal pager: [phone] scallop cutter nutrition pager [phone] (from 7am-7pm) [employer] Work Phone: [phone] [phone] Consult note* Maya Hoff, RD - 10/25/2024 10:56 AM EDT Images [...] intact Eyes/Nose/Mouth: RA Last BM: 10/24 per [facility] Last Emesis: 10/21 x1 - medium, partially [...] none PO Intake: 10/24 - 100% per [facility] Anthropometrics: Height: 6' 1 Current wt: 67.9 [...] (significant). Estimated Energy Needs: using 68 kg 0388-5785 kcal/d 30-35 kcal/kg 80-95 gm pro/d 1.2-1.4 [...] started in the CICU. Transferred out to [facility] in stable condition. Pt completed abx course 10/23. Course c/bpt continued intermittent refusal of medications. Pt reported continued cough and SOB - requested supplemental O2 despite good saturations. After discussion about need for diuretics to help alleviatefluid build up which is causing SOB, pt agreed to Bumex. RD Consult referred by [employer] for wt loss. Pt denied any recent [...] 45 minutes Maya Hoff MS, RD, LD, [facility] Personal pager: [phone] scallop cutter nutrition pager [phone] (from 7am-7pm) * Georgia Abarca, PT - 10/25/2024 10:45 AM EDTAssociated Order(s): IP PHYSICAL THERAPY SERVICE REQUEST PHYSICAL THERAPY ACUTE EVALUATION Referral received, chart reviewed. Patient seen from 1045 to [address] [place] [address] for 23 minutes. Evaluation and treatment Admit [...] don't need oxygen. Patient Identified Goal(s):Return home. COMSEC MANAGER Status: Patient was independent with ADLs and [...] With Patients permission ordered no equipment via CR2 Order. If any questions contact [facility] DME Provider at [phone]. 10/25/2024 6 Clicks Basic Mobility PT Difficulty [...] NA = Not Assessed, I = Independent, NC = Modified Independent, Sup = Supervised, Set [...] not included. Dietitian vs DietaryTech: Dietary TechDiet Facilities Clerk Nutrition Screening Reason for visit: LOS 5 [...] care: 30 minutes PAO Cole (Nutrition) Pager #[phone]. documented in this [id number] Consult note* Georgia Abarca, PT - 10/25/2024 10:45 AM EDTAssociated Order(s): IP PHYSICAL THERAPY SERVICE REQUEST PHYSICAL THERAPY ACUTE EVALUATION Referral received, chart reviewed. Patient seen from 1045 to 1108 on [facility] for 23 minutes. Evaluation and treatment Admit [...] don't need oxygen. Patient Identified Goal(s):Return home. COMSEC MANAGER Status: Patient was independent with ADLs and [...] With Patients permission ordered no equipment via CR2 Order. If any questions contact [facility] DME Provider at [phone]. 10/25/2024 6 Clicks Basic Mobility PT Difficulty [...] NA = Not Assessed, I = Independent, NC = Modified Independent, Sup = Supervised, Set up = Physical Assistance for Set-up Only, Min = Minimal Assistance, Mod = Moderate Assistance, Max = Max assistance; Dep = Dependent; AROM = Active Range of Motion; PROM = Passive Range of Motion; MMT = Manual Muscle Test; LE = Lower Extremity YvjzcKthwzv88-94-8986 Evaluation + Plan note* Assessment & Plan Note - Sara Tineo MD - 10/24/2024 12:08 PM EDTAssociated Problem(s): Pneumonia of right lower lobe due to infectious organism No leukocytosis, afebrile, stable on room air, procal elevated to 16.8 on admission Given recent hospitalization, treating for HAP - complete course of linezolid and cipro today (d7/) T [id number] Evaluation + Plan note* Assessment & Plan [...] - continue GOC discussions, ?psych consult T PlnteKekvwq71-29-4488 Evaluation + Plan note* Assessment & Plan Note - Sara Tineo MD - 10/24/2024 12:08 PM EDTAssociated Problem(s): Acute kidney injury superimposed on stage 3b chronic kidney disease Max creatinine this stay 3.2, down trending to 1.46 which appears to be better than baseline - avoid nephrotoxic agents - repeat bmp as patient will allow [place] [id number] Evaluation + Plan note* Assessment & Plan Note - Sara Tineo MD - 10/24/2024 12:08 PM EDTAssociated Problem(s): Cirrhosis (HCC) With hyperbili - liver clinic as an outpatient - HFP when patient willing GphfhFeixil67-75-6635 Evaluation + Plan note* Assessment & Plan Note - Sara Tineo MD - 10/24/2024 12:08 PM EDTAssociated Problem(s): Hypomagnesemia Level 1.5 10/21 - only agreeable to mag oxide - repeat level in am OqdvlWoffsk23-73-3640 Evaluation + Plan note* Assessment & Plan Note - Sara Tinoe MD - 10/24/2024 12:08 PM EDTAssociated Problem(s): Hypokalemia Level 3.2 10/21 - he declined potassium PO and IV again today - BMP in am ZdqrqYmfdxw53-75-2468 Evaluation + Plan note* Assessment & Plan Note - Sara Tineo MD - 10/24/2024 12:08 PM EDTAssociated Problem(s): Acute deep vein thrombosis (DVT) of lower extremity (HCC) - apixaban 5 mg po bid YempvKrzlsi01-66-8190 Evaluation + Plan note* Assessment & Plan Note - Sara Tineo MD - 10/23/2024 11:42 AM EDTAssociated Problem(s): Cirrhosis (HCC) [facility] - HFP when patient willing EnjldShonjt35-92-1546 Evaluation + Plan note* Assessment & Plan Note - Sara Tineo MD - 10/23/2024 11:42 AM EDTAssociated Problem(s): Hypomagnesemia Level 1.5 10/21 - only agreeable to mag oxide - repeat level in am NznrgYsagfe95-82-5250 Evaluation + Plan note* Assessment & Plan Note - Sara Tineo MD - 10/23/2024 11:42 AM EDTAssociated Problem(s): Hypokalemia Level 3.2 10/21 - he declined potassium PO and IV again today - BMP in am ItqmlFsdclc00-10-5381 Evaluation + Plan note* Assessment & Plan Note - Sara Tineo MD - 10/23/2024 11:42 AM EDTAssociated Problem(s): Acute deep vein thrombosis (DVT) of lower extremity (HCC) - apixaban 5 mg po bid GpvhdXtyiwc21-06-8106 Evaluation + Plan note* Assessment & Plan Note - Sara Tineo MD - 10/23/2024 11:42 AM EDTAssociated Problem(s): Pneumonia of right lower lobe due to infectious organism No leukocytosis, afebrile, stable on room air, procal elevated to 16.8 on admission Given recent hospitalization, treating for HAP - complete course of linezolid and cipro today (d7/7) FmxgnWibcun91-33-2264 Evaluation + Plan note* Assessment & Plan [...] outpatient - continue GOC discussions, ?psych consult OcezsXzwchc50-48-5500 Evaluation + Plan note* Assessment & Plan Note - Sara Tineo MD - 10/23/2024 11:42 AM EDTAssociated Problem(s): Acute kidney injury superimposed on stage 3b chronic kidney disease Max creatinine this stay 3.2, down trending to 1.46 which appears to be better than baseline - avoid nephrotoxic agents - repeat bmp as patient will allow UnnzuEjxynj40-16-7521 Consult note* Mecca Joe - 10/22/2024 1:36 PM EDT Images from the original note were not included. Dietitian vs DietaryTech: Dietary TechDiet Facilities Clerk Nutrition Screening Reason for visit: LOS 5 [...] care: 30 minutes PAO Cole (Nutrition) Pager #[phone]. DeibzKauyow30-18-4555 Evaluation + Plan note* Assessment & Plan Note - Sara Tineo MD - 10/22/2024 10:42 AM EDTAssociated Problem(s): Pneumonia of right lower lobe due to infectious organism No leukocytosis, afebrile, stable on room air, procal elevated to 16.8 on admission Given recent hospitalization, treating for HAP - continue linezolid and cipro (d6/7) YxfsjRsruiy53-09-7080 Evaluation + Plan note* Assessment & Plan [...] as an outpatient - continue GOC discussions DjdfkKudbee57-18-3085 Evaluation + Plan note* Assessment & Plan Note - Sara Tineo MD - 10/22/2024 10:42 AM EDTAssociated Problem(s): Cirrhosis (HCC) With hyperbil - liver clinic as an outpatient - HFP when patient willing NofdlGendhu41-74-9292 Evaluation + Plan note* Assessment & Plan Note - Sara Tineo MD - 10/22/2024 10:42 AM EDTAssociated Problem(s): Hypomagnesemia Level 1.5 10/21 - only agreeable to mag oxide - repeat level in am QkivvAhdsdv85-51-8185 Evaluation + Plan note* Assessment & Plan Note - Sara Tineo MD - 10/22/2024 10:42 AM EDTAssociated Problem(s): Hypokalemia Level 3.2 10/21 - he declined potassium PO and IV again today - BMP in am DiijjDxjchz12-90-5281 Evaluation + Plan note* Assessment & Plan Note - Sara Tineo MD - 10/22/2024 7:22 AM EDTAssociated Problem(s): Acute kidney injury superimposed on stage 3b chronic kidney disease Max creatinine this stay 3.2, down trending to 1.46 which appears to be better than baseline - avoid nephrotoxic agents - repeat bmp in am JknqbDaocml86-61-1130 Evaluation + Plan note* Assessment & Plan Note - Sara Tineo MD - 10/22/2024 7:22 AM EDTAssociated Problem(s): Acute deep vein thrombosis (DVT) of lower extremity (HCC) - apixaban 5 mg po bid DfymxQgimfi35-78-8338 Evaluation + Plan note* Assessment & Plan Note - Leatha Mckeon APRN-CNP - 10/21/2024 6:01 PM EDTAssociated Problem(s): Pneumonia of right lower lobe due to infectious organism No leukocytosis, afebrile, stable on room air, procal elevated to 16.8 Given recent hospitalization, treating for HAP - continue linezolid and cipro LlhzbJnsdfi84-81-7423 Evaluation + Plan note* Assessment & Plan Note - Leatha Mckeon APRN-CNP - 10/21/2024 6:01 PM EDTAssociated Problem(s): Cardiogenic shock (HCC) (Resolved 10/21/2024) Managed in the cicu, at this time has resolved MypubXbpluv42-00-4914 Evaluation + Plan note* Assessment & Plan [...] as an outpatient - continue GOC discussion QafuxXwrrlk45-52-2901 Evaluation + Plan note* Assessment & Plan Note - Leatha Mckeon APRN-CNP - 10/21/2024 6:01 PM EDTAssociated Problem(s): Acute kidney injury superimposed on stage 3b chronic kidney disease Max creatinine this stay 3.2, down trending to 1.46 which appears to be better than baseline - avoid nephrotoxic agents - repeat bmp in am FvvveOgebdi53-13-6412 Evaluation + Plan note* Assessment & Plan Note - Leatha Mckeon APRN-CNP - 10/21/2024 6:01 PM EDTAssociated Problem(s): Cirrhosis (HCC) With hyperbili - liver clinic as an outpatient - HFP in am YfoffBzlcsi94-35-5971 Evaluation + Plan note* Assessment & Plan Note - Leatha Mckeon APRN-CNP - 10/21/2024 6:01 PM EDTAssociated Problem(s): Hypomagnesemia Level 1.5 this am - only agreeable to mag oxide - repeat level in am FxnrsPvydid25-42-1038 Evaluation + Plan note* Assessment & Plan Note - Leatha Mckeon APRN-CNP - 10/21/2024 6:01 PM EDTAssociated Problem(s): Hypokalemia Level 3.2 - he declined potassium PO and IV - BMP in am NkqshEacobv19-98-7700 Evaluation + Plan note* Assessment & Plan Note - Leatha Mckeon APRN-CNP - 10/21/2024 6:01 PM EDTAssociated Problem(s): Acute deep vein thrombosis (DVT) of lower extremity (HCC) - apixaban 5 mg po bid NtmvdDnytnb57-20-6915 Hospital Note* Hospital Course - Anshul Laird [...] started in the CICU. Transferred out to [facility] in stable condition. Patient completed abxcourse 10/23. Course complicated by patient continued intermittent refusal of medications. 10/25 Attempting lab work on the patient and is agreeable to take his medications today. If stable lab work, will start SLGT2 inhibitor. Nursing staff and nursing aid attempted blood work with no success. Pending IV team to get labs. JnwyeIhskws04-79-3852 Progress note* Transfer Note - Larry Myers DO - 10/21/2024 11:43 AM EDT Images from the original note were not included. Provider Called Report To (Enter Provider Name, Service, and Time): Dr. Tineo, Medicine Team 6, 15:35 [facility] Transfer Note Hospital Course: Carlo Medina [...] goals Larry Myers DO Internal Medicine, PGY-2 [facility] Work Phone: 1(220) 570-683804-22-2025 NoteSecond attempt to collect stat labs, patient refused, pt refused medication ordered for this am , education provided, pt verbalized understanding and continued to refused, MD made aware, not further orders receivedThe [facility] Emergency department Note* Shari Caal, RUFINA - 10/18/2024 3:32 AM EDT notified of critical LACTATE value of 4.7. Hard copy of results given to . MmncxWdmics53-31-3025 Emergency department Note* Shari Caal EMR - [...] room at the time of the evaluation. Plant Operator: not needed - patient preferred language is Filipino. HPI Pt is a 44 year old [...] Sanderson Course: ED Course as of 10/17/242123 [place] Oct 17, 20242040 Complete Blood Count W/Diff(!): [...] note. Phoebe Sanderson MD documented in this [id number] History and physical note* Jim Wynn MD - 10/18/2024 2:02 AM EDT Images from the original note were not included. [facility] Cardiac Intensive Care Unit - H&P Note Carlo Medina Age [age] year old male ROOM: [place] [address] Admitted: 10/17/2024 6:40 PM Hospital Day: 2 [...] - TSH: N/A EKG: Sinus Tachycardia, Right Arden Deviation, RBBB Imaging: - CXR 10/17/24 demonstrating [...] Stratification: Chads-Vasc (stroke risk in non-valvular Afib) FSF4IM6-YELy Score: 3 This is based on the [...] CHAVIS, et al., 2019) failed to calculate. Edmond CAD risk score Cannot assess CHD for [...] treatment plan with patient or surrogate Jim Wynn MD [id number] History and physical note* Jim Wynn MD - 10/18/2024 2:02 AM EDT Images from the original note were not included. [facility] Cardiac Intensive Care Unit - H&P Note Carlo Medina Age [age] year old male ROOM: [place] [address] Admitted: 10/17/2024 6:40 PM Hospital Day: 2 [...] - TSH: N/A EKG: Sinus Tachycardia, Right Arden Deviation, RBBB Imaging: - CXR 10/17/24 demonstrating [...] Stratification: Chads-Vasc (stroke risk in non-valvular Afib) QSE1GT6-ZOZs Score: 3 This is based on the [...] CHAVIS, et al., 2019) failed to calculate. Edmond CAD risk score Cannot assess CHD for [...] Heart Failure #HFrEF (EF 15%) Last echo 4/4 Appears volume overload on exam Plan -Afterload [...] treatment plan with patient or surrogate Jim Wynn MD documented in this [id number] Emergency department Note* Niko Villalpando, RUFINA - 10/18/2024 1:[address] RESENDEZ notified of critical LACTATE value of 5.3. Hard copy of results given to Dr. RESENDEZ. [id number] Emergency department Note* Vipul Jose RN - 10/17/2024 10:00 PM EDT Delay in antibiotics d/t no IV access [id number] Physician Emergency department Note* Maurice Wise MD [...] TWI in lead 3 compared to prior [AH] 2056 INR(!): 2.14 [AH] 2119 CXR PORTABLE [...] part of lung [J18.9] Maurice Wise MD FdldcJvhfcm96-45-7920 Physician Emergency department Note* Vic Sandhu MD [...] room at the time of the evaluation. Plant Operator: not needed - patient preferred language is Filipino. HPI Pt is a 44 year old [...] in the resident's note. Phoebe Sanderson MD NxaruFwadma94-40-8416 Physician Emergency department Note* Luis Eduardo Bernal, [...] (heart failure with reduced ejection fraction) (HCC) [I50.20] History of left bundle branch block [...] hpi Review of External (Non- ED) Notes: [facility] ED notes from 08/22/24 reviewed and show [...] of DVT, CKD3, cirrhosis. Ad[facility] 09/[facility] for aDHF 2/2 CAP. Pt completed [...] primary care provider. Luis Eduardo Bernal DO [id number] Emergency department Note* Luis Eduardo Bernal DO [...] deep vein thrombosis (DVT) of lower extremity ([facility]) [I82.409] HFrEF (heart failure with reduced ejection fraction) ([facility]) [I50.20] History of left bundle branch block (LBBB) [Z86.79] Acute kidney injury superimposed on CKD ([facility]) [N17.9, N18.9] Pulmonary vascular congestion [R09.89] SOB [...] hpi Review of External (Non- ED) Notes: [facility] ED notes from 08/22/24 reviewed and show [...] of DVT, CKD3, cirrhosis. Admitted 09/30/20[facility] to [facility] for aDHF 2/2 CAP. Pt completed [...] Luis Eduardo Bernal DO documented in this [id number] Hospital Discharge instructions* Discharge Instructions* Luis Eduardo Bernal DO - 10/13/2024 3:51 PM EDT Respiratory instructions: Return to the ED if you have worsening shortness of breath, increased fever, coughing up blood, new or worsening chest pain or your symptoms don't improve in 2 days. documented in this [id number] Telephone encounter Note* Telephone Encounter - Louise Morales RN - 10/13/2024 1:01 PM EDT What is the need: Situation: call transferred from [facility] for cough. Patient calling with concern [...] exposures) Denies Protocols used: Coughing Up Blood-A-AH OikacJosyaw01-38-8674 Miscellaneous Notes* Telephone Encounter - Louise Morales RN - 10/13/2024 1:01 PM EDT What is the need: Situation: call transferred from [facility] for cough. Patient calling with concern [...] concerned about lingering cough. documented in this [id number] Telephone encounter Note* Telephone Encounter - Luma Bowie - 10/13/2024 12:51 PM EDT Caller transferred to nurse for sx of(buzzword or buzzword situation)was hosptalized for pneumonia and concerned about lingering cough. [id number] NotePatient: CARLO MEDINA Age: 44 years Sex: [...] continue all the present care and therapy [facility]04-10-2025 Telephone encounter Note* Telephone Encounter - Radha Flores RN - 10/07/2024 1:44 PM EDT Transitional Care Management Contact Initial communication post-discharge: 1st attempt: 10/07/24, 1:44 PM -No answer 2nd attempt: 10/08/24, 9:47 AM -No answer 3rd attempt: 10/08/24, 2:53 PM -No answerLetter mailed: 10/08/24 Patient no longer meet Humanities Professor Coordination services due to one or more of the following: [] Well connected to medical home and/or other services [] Identified Needs/Goals have been met [x] Unable to contact patient (at least 3 documented attempts) [] Is not adherent to Care Plan or Goals [] Declined Services [] Rolled off insurance plan or no longer MH patient [] Living situation changed; ie. SNF, Half-Way, Hospice [] PCP recommends deferral [] Patient transferred to Press Clipper or Reviewer Sales [] No readmissions 30 days post discharge. [] Radha Flores, SEMAJN, extractor machine operatorComputer Analyst [phone] [id number] Miscellaneous Notes* Telephone Encounter - Radha Flores RN - 10/07/2024 1:44 PM EDT Transitional Care Management Contact Initial communication post-discharge: 1st attempt: 10/07/24, 1:44 PM -No answer 2nd attempt: 10/08/24, 9:47 AM -No answer 3rd attempt: 10/08/24, 2:53 PM -No answerLetter mailed: 10/08/24 Patient no longer meet Humanities Professor Coordination services due to one or more of the following: [] Well connected to medical home and/or other services [] Identified Needs/Goals have been met [x] Unable to contact patient (at least 3 documented attempts) [] Is not adherent to Care Plan or Goals [] Declined Services [] Rolled off insurance plan or no longer MH patient [] Living situation changed; ie. SNF, Half-Way, Hospice [] PCP recommends deferral [] Patient transferred to Press Clipper or Reviewer Sales [] No readmissions 30 days post discharge. [] DESEAN Bee, extractor machine operatorComputer Analyst [phone] documented in this [id number] NoteThe [facility] 10-[facility] History of Present illness Narrative* [...] will complete appropriate assessments and interventions. Wade ANTON RN, CM Care Coordination department secure epic chat * Amanda Esposito RN - 10/05/2024 4:05 PM EDT Report received from amirah evans. Care assumed att * Dominic Chacko MD - 10/05/2024 12:37 PM EDT Images from the original note were not included. [facility] Internal Medicine: TEAM 2 - Daily Progress Note Patient: Carlo Medina : 1980 Sex: male Room: [place] [address] Admit Date: 09/30/2024 Today's Date: 10/05/2024 Length [...] ICU level care he was transferred to [facility]. SUBJECTIVE: EVENTS IN PAST 24H: Some [...] with capacity refusing ICU treatments/interventions, transferred to [facility]. He is vitally stable, and electrolytes [...] Medicine Pediatrics PGY 1 Team 2 Med [id number] Cosigned by Julio Jauregui MD at 10/05/2024 9:44 PM EDT * Aryan Cervantes MD - 10/05/2024 9:35 AM EDT Images from the original note were not included. Consult Service Progress Note Heart Failure Service Date and Time of Visit: 10/05/2024 9:35 AM Room: [place] [address] PCP Contact: Yuval Gayle MD Consultation Requested [...] Acute kidney injury superimposed on CKD (HCC) HFrEF (heart failure with reduced ejection fraction) ([facility]) Allergies Allergies Allergen Reactions Torsemide Vomiting Reports [...] Oral Q8H PRN 1,000 mg at 10/04/24 225 oxyCODONE immediate release tablet 5 mg Oral [...] Department of Cardiovascular Diseases Heart and Vascular [facility] Teaching Physician Note: I saw and evaluated [...] from the original note were not included. [facility] Internal Medicine: TEAM 2 - Daily Progress Note Patient: Carlo Medina : 1980 Sex: male Room: [place] [address] Admit Date: 09/30/2024 Today's Date: 10/04/2024 Length [...] ICU level care he was transferred to [facility]. SUBJECTIVE: EVENTS IN PAST 24H: Transferred to [facility] SUBJECTIVE: Pt arrived a febrile, tachycardic [...] Medicine Pediatrics PGY 1 Team 2 Med [id number] Cosigned by Julio Jauregui MD at 10/05/2024 [...] on restarting IV medications and central venous catheter/[place] Maria C catheter. He had unsuccessful attempt to place left internal jugular CVC 10/03/2024, he feels slightly better, off O2. Patient removed his IV and arterial line, refused [place] Maria C catheter, refused heparin and ceftriaxone. I re explained the gravity of his condition and offered CVC which he continued to refuse. 10/04/2024: Patient refused to continue dobutamine and asked the nurse to stop it and therefore his not being getting it. He continues to refuse central venous catheter/[place]-Maria C catheter. It was re-expand to him [...] care 30 minutes. Kathleen Burden MD MPH Vfx Artist and Endovascular Specialist * Shane Omalley MD - 10/04/2024 7:53 AM EDT Images from the original note were not included. [facility] CICU - Progress Note Carlo Medina Age [age] year old male ROOM: [place] [address] Admitted 09/30/2024 4:07 PM Hospital Day: 5 [...] all measures that would prolong his life. J central line and L radial arterial line [...] central line (removed because catheter traveled from [facility]). All medications refused and patient requested [...] Phenyl Epi Sedation: Fent Prop Versed Ket [place] Numbers: PAP Mean PCWP Cardiac Index Labs: [...] care. This decision was discussed with Ethics instruments sales representative. Neurologic No active issues Cardiovascular [...] an attending physician. Shane Omalley MD (he/him) Journeyman Power Plant Operator PGY-2 10/04/24 * Kathleen Burden MD, MPH - 10/03/2024 7:20 AM EDT Images from the original note were not included. [facility] CICU - Progress Note Carlo Medina Age [age] year old male ROOM: [place] [address] Admitted 09/30/2024 4:07 PM Hospital Day: 4 [...] central line (removed because catheter traveled from [facility]). All medications refused and patient requested [...] Phenyl Epi Sedation: Fent Prop Versed Ket [place] Numbers: PAP Mean PCWP Cardiac Index Labs: [...] finalized by an attending physician. Guadalupe Mccarthy, DO Internal medicine/Pediatrics, PGY-2 Teaching physician note: History [...] on restarting IV medications and central venous catheter/[place] Maria C catheter. He had unsuccessful attempt to place left internal jugular CVC 10/03/2024, he feels slightly better, off O2. Patient removed his IV and arterial line, refused [place] Maria C catheter, refused heparin and ceftriaxone. [...] CICU floor as he does not want [place] Maria C catheter Code status: full EKG [...] care 30 minutes. Kathleen Burden MD MPH Vfx Artist and Endovascular Specialist * Guadalupe Mccarthy DO [...] included. Spoke to patient's significant other, Kaitlin Kurt on the phone at [phone]. She stated that she understood the patient [...] Spoke to patient's relative Nanci Medina at [phone]. The same information as above was given. She states that the patient needs to decide what his goals are and make decisions like an adult. She will also come to the hospital. Brother Vance Medina called from [phone] inquiring updates and was given the same [...] from the original note were not included. [address] [address] FAMILY MEDICINE INPATIENT SERVICE PROGRESS NOTE Carlo Medina 44 year old 166.4 lbs MRN/Room: [id number] : 1980 Admit Date: 09/30/2024 Chief Complaint Patient presents with Shortness of breath Pt c/o right sided rib pain, sob. Diarrhea x1 week, vomiting yesterday with cough and congestion. Hospital Course: Carlo Medina is a 44 year old male with PMHx of HFrEF (EF 18% 07/2024), LBBB, HTN, HLD, bilateral DVT (05/2024), and CKD 3 who presented to [place] ED on 09/30/2024 for SOB and R [...] PO. Pt was recommended for admission to [facility] forfurther management. Patients echo showed an [...] cirrhosis, and CKD 3 who presented to [place] ED on 09/30/2024 for SOB and R [...] MD Family Medicine, PGY-1 FM Team Pager: [phone] * Lesly Luna RN - 10/01/2024 12:20 [...] warranted. Lesly Luna RN, BSN Case Management [phone] M-F 7:30-4:00 * Ramin Lopez RN - 10/01/2024 4:[address] Hutchinson notified of critical Lactate value of 3.5. Dr. Hutchinson read back critical results. New orders not received. documented in this [id number] Progress note* Progress Notes - Willie - [...] were discontinued and he was transferred to [facility]. This am, he is in agreement [...] to document discussion of and attempt to veterans' counselor pt and girlfriend on the severity of disease and to address code status again. On tele. Julio Jauregui MD [employer] Work Phone: 1(182) 506-464304-08-2025 Miscellaneous Notes* Progress Notes - NoteWriter - Juilo Jauregui MD - 10/05/2024 1:18 PM EDT [...] were discontinued and he was transferred to [facility]. This am, he is in agreement [...] to document discussion of and attempt to veterans' counselor pt and girlfriend on the severity [...] Carlo Medina : 1980 Sex: male Room: [place] [address] Admit Date: 09/30/2024 Today's Date: 10/04/2024 Hospital [...] [] [] Signature Shane Omalley MD (he/him) Journeyman Power Plant Operator PGY-2 10/04/24 * Discharge Planning Note - [...] warranted. Michelle Umana BSN RN CMSRN PRN Career Resource Specialist * Progress Notes - NoteWriter - Soraida [...] doxycycline with cocern for CAP. Admitted to [facility]. Echo done with EF 15%, [...] a 44 year old (Full Code) Room: [facility] 1980 FROM [facility] TO cardiac icu Admit Date: 09/30/2024 Today's Date: 10/01/2024 Length of stay: 1 day(s) HOSPITAL COURSE: Carlo Medina is a 44 year old male w/ PMH of HFrEF (18% by TTE 08/11/24), LBBB, HTN, HLD, bilateral DVT (05/2024), and CKD 3 who presented to [place] ED on 09/30/2024 for SOB and R [...] Refer to progress notes Report called to overlock sleeve setter at 6:36 PM Carleen Weber MD Family Medicine PGY-2 documented in this [id number] Consult note* Deena Yan OT - 10/05/2024 [...] OTR/L (Message Via Secure Chat as Needed) [id number] Consult note* Deena Yan OT - 10/05/2024 [...] Hearn - 10/03/2024 6:37 PM EDTAssociated Order(s): IP ETHICS COMMITTEE CONSULT Clinical Ethics [...] of any further assistance. 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 If any questions contact [facility] at [phone]. 10/02/2024 6 Clicks Daily Activity OT Help [...] Guard Assist/Supervision 4 - Non = Modified [place]/Independent ASSESSMENT: Will continue to follow patient while [...] NA = Not Assessed, I = Independent, NC = Modified Independent, Sup = Supervised, Set up = Physical Assistance for Set-up Only, Min = Minimal Assistance, Mod = Moderate Assistance, Max = Max assistance; Dep = Dependent; AROM = Active Range of Motion;PROM=Passive Rangeof Motion; MMT = Manual Muscle Test; UB = Upper Body; LB = Lower Body * DarbywileyRosaline, PT - 10/02/2024 12:46 PM EDTAssociated Order(s): [...] HFrEF (heart failure with reduced ejection fraction) ([facility]) [I50.20] Acute kidney injury superimposed on CKD ([facility]) [N17.9, N18.9] Precautions: Falls Risk: Moderate Code Status: Full Diet: 2 GM sodium, 2000 cc fluid Activity Orders: Progressive mobility Past Medical and Surgical History: PMH: Past Medical History: Diagnosis Date Chronic systolic heart failure (HCC) DVT (deep venous thrombosis) ([facility]) Hypercholesteremia Iron deficiency anemia Stage 2 chronic [...] Patient Identified Goal(s): to return to PLOF COMSEC MANAGER Status: Mobility Status: Independent ADL/IADL Independent Falls: [...] Dep Max Mod Min CG CS DS NC I Set-Up Comment Supine to Sit X [...] NA = Not Assessed, I = Independent, NC = Modified Independent, Sup = Supervised, Set [...] 10/01/2024 10:00 AM Name: Carlo Medina Room: [facility]/2 : 1980 male 44 year old Admit [...] fluids, continues to trend down. Follows at [facility]. Last seen recently in Jul, [...] PRN: metoclopramide 10 mg Q6H PRN MEDICATIONS COMSEC MANAGER: Prior to Admission medications Medication Sig Start Date End Date Taking? Authorizing Provider Apixaban (ELIQUIS) 5 MG tablet Take 5 mg by mouth 2 times daily. [facility], PROVIDER Cholecalciferol 50 MCG (1999 UT) CAPS Take 1 Capsule by mouth daily. [facility]- [facility], PROVIDER losartan (COZAAR) 50 MG tablet Take 50 mg by mouth daily. 08/04/24 08/04/25 [facility]- [facility], PROVIDER losartan (COZAAR) 25 MG tablet 07/30/24 [facility], PROVIDER magnesium oxide (MAG-OX) 400 (240 Mg) MG TABS tablet Take 400 mg by mouth daily. 07/31/24 [facility], PROVIDER metoprolol (TOPROL-XL) 25 mg XL tablet Take 25 mg by mouth daily. 08/21/24 08/21/25 [facility], PROVIDER pantoprazole (PROTONIX) 40 MG tablet Take 40 mg by mouth daily. NON-[facility], PROVIDER potassium chloride SA (K-DUR) 20 MEQ controlled release tablet 07/30/24 NON- [facility], PROVIDER sodium bicarbonate 650 MG tablet Take 2 Tablets by mouth 2 times daily. NON- [facility], PROVIDER spironolactone (ALDACTONE) 25 MG tablet Take [...] (!) 103 15 96 % -- -- 09/30/240 107/86 -- -- (!) 104 13 100 [...] results found for: LVEF EF 18% at [facility]: Non-obstructive CAD IMPRESSION Acute on chronic HFrEF with low cardiac output state Severe MR Severe TR Type 2 NC 2/2 supply demand mismatch RECOMMENDATIONS - Recommend [...] Department of Cardiovascular Diseases Heart and Vascular [facility] Teaching Physician Note: I saw and evaluated [...] note were not included. Dietitian vs DietaryTech: [employer] Diet Facilities Clerk Nutrition Screening Reason for visit: Positive nutrition [...] Will continue to follow, Janay Melo, Diet Facilities Clerk Pager [phone] Time spent on patient care: 30 minutes documented in this [id number] Progress note* Transfer Note - Shane Omalley MD - 10/04/2024 4:08 PM EDT Images from the original note were not included. . Provider Called Report To (Enter Provider Name, Service, and Time): Eugene Nova MD, Med Resident Teams 16:30 CICU Transfer Note Patient: Carlo Medina : 1980 Sex: male Room: [place] [address] Admit Date: 09/30/2024 Today's Date: 10/04/2024 Hospital [...] [] [] Signature Shane Omalley MD (he/him) Journeyman Power Plant Operator PGY-2 10/04/24 [id number] Progress note* Discharge Planning Note - Michelle [...] for further discharge needs as warranted. Michelle CHAN RN CMSRN PRN Career Resource Specialist [id number] Progress note* Progress [facility] Soraida Pedroza RN - 10/04/2024 12:30 AM EDT 12:30 AM Patient refusing labs at this time [id number] Consult note* Calin Hearn - 10/03/2024 6:37 [...] of any further assistance. Calin Hearn MD, [facility] Clinical Ethics Fellow, [facility] 20/01 Clinical Ethics Consult Pager: [phone] [id number] Hospital Note* Hospital Course - Guadalupe Mccarthy DO - [...] want to be hooked up to lines. [id number] Consult note* Faith Gan, PT - 10/03/2024 9:00 AM EDT PHYSICAL THERAPY-DISCHARGE Attempted to see patient for PT session, however pt currently declining any further therapy needs. Patient reporting independence with functional mobility and no concerns for a decline in his independence. Pt requesting DC from PT services Will respectfully DC PT Faith Gan, PT, DPT Secure chat with questions [id number] Progress note* Progress Notes - NoteWriter - Soraida Pedroza, RN - 10/03/2024 12:58 AM EDT 12:58 AM Unable to obtain lab work due to lack of access, patient is difficult stick and refusing peripheralsticks. [id number] NoteEXAMINATION: XR CHEST AP OR PA 1 [...] Continued follow-up exam is recommended. MACRO: None [id number] Procedure note* Guadalupe Mccarthy DO - 10/02/2024 [...] ultrasound image is not saved to the LMN-1 system with patient information. Guadalupe Mccarthy DO Internal Medicine/Pediatrics PGY-2 Cosigned by Steven Laguna MD at 10/03/2024 6:38 AM EDT [id number] Procedure note* Guadalupe Mccarthy DO - 10/02/2024 [...] ultrasound image is not saved to the LMN-1 system with patient information. 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 If any questions contact [facility] Provider at [phone]. 10/02/2024 6 Clicks Daily Activity OT Help [...] Guard Assist/Supervision 4 - Non = Modified [place]/Independent ASSESSMENT: Will continue to follow patient while [...] NA = Not Assessed, I = Independent, NC = Modified Independent, Sup = Supervised, Set up = Physical Assistance for Set-up Only, Min = Minimal Assistance, Mod = Moderate Assistance, Max = Max assistance; Dep = Dependent; AROM = Active Range of Motion;PROM=Passive Rangeof Motion; MMT = Manual Muscle Test; UB = Upper Body; LB = Lower Body [id number] Consult note* Rosaline Rivero, PT - 10/02/2024 [...] HFrEF (heart failure with reduced ejection fraction) ([facility]) [I50.20] Acute kidney injury superimposed on CKD ([facility]) [N17.9, N18.9] Precautions: Falls Risk: Moderate Code Status: Full Diet: 2 GM sodium, 2000 cc fluid Activity Orders: Progressive mobility Past Medical and Surgical History: PMH: Past Medical History: Diagnosis Date Chronic systolic heart failure (HCC) DVT (deep venous thrombosis) ([facility]) Hypercholesteremia Iron deficiency anemia Stage 2 chronic [...] Patient Identified Goal(s): to return to PLOF COMSEC MANAGER Status: Mobility Status: Independent ADL/IADL Independent Falls: [...] Dep Max Mod Min CG CS DS NC I Set-Up Comment Supine to Sit X [...] NA = Not Assessed, I = Independent, NC = Modified Independent, Sup = Supervised, Set up = Physical Assistance for Set-up Only, Min = Minimal Assistance, Mod = Moderate Assistance, Max = Max assistance; Dep = Dependent; AROM = Active Range of Motion; PROM = Passive Range of Motion; MMT = Manual Muscle Test; LE = Lower Extremity; VC = verbal cues; TC = tactile cues; PLB = pursed lip breathing [id number] History and physical note* Kathleen Burden MD, MPH - 10/02/2024 12:00 AM EDT Images from the original note were not included. [facility] Cardiac Intensive Care Unit - H&P Note Carlo Medina Age [age] year old male ROOM: [place] [address] Admitted: 09/30/2024 4:07 PM Hospital Day: 2 [...] cirrhosis, and CKD 3 who presented to [place] ED on 09/30/2024 for SOB and R [...] on restarting IV medications and central venous catheter/[place] Maria C catheter Active Medical Problems: - [...] care 30 minutes. Kathleen Burden MD MPH Vfx Artist and Endovascular Specialist [id number] History and physical note* Kathleen Burden MD, MPH - 10/02/2024 12:00 AM EDT Images from the original note were not included. [facility] Cardiac Intensive Care Unit - H&P Note Carlo Medina Age [age] year old male ROOM: [place] [address] Admitted: 09/30/2024 4:07 PM Hospital Day: 2 [...] cirrhosis, and CKD 3 who presented to [place] ED on 09/30/2024 for SOB and R [...] on restarting IV medications and central venous catheter/[place] Maria C catheter Active Medical Problems: - [...] care 30 minutes. Kathleen Burden MD MPH Vfx Artist and Endovascular Specialist * Lance Ennis MD - 10/01/2024 8:56 AM EDT Images from the original note were not included. Family Medicine Attending H&P Carlo Medina [id number] Inpatient Attending/Teaching Physician Note: I saw and [...] DVT and CKD stage 3presented to the [place] emergency department yesterday with shortness of breath [...] Home when clinically stable Lance Ennis MD [id number] * Harris Hutchinson MD - 09/30/2024 11:12 PM EDT Images from the original note were not included. SENIOR NOTE I saw and evaluated the patient. I personally obtained the reardon and critical portions of the historyand physical exam. I reviewed the procurement intern's documentation and discussed the patient with the procurement intern.I agree with the procurement intern's medical decision making as documented in the procurement intern's note. Further details provided in the procurement intern's note. Briefly: SUBJECTIVE Carlo Medina is a 44 year old male w/ PMH of HFrEF (18% by TTE 08/11/24), LBBB, HTN, HLD, bilateral DVT (05/2024), and CKD 3 who presented to [place] ED on 09/30/2024 for SOB and R [...] normal. Rest of labs and imaging per procurement intern note ASSESSMENT/PLAN Carlo Medina is a 44 year old male w/ PMH of HFrEF (18% by TTE 08/11/24), LBBB, HTN, HLD, bilateral DVT (05/2024), and CKD 3 who presented to [place] ED on 09/30/2024 for SOB and R [...] Daily weights and Accurate I/O's Rest per procurement intern note. Harris Hutchinson MD Family Medicine PGY2 * Pauline Denny MD - 09/30/2024 10:43 PM EDT Images from the original note were not included. [address] [address] FAMILY MEDICINE INPATIENT SERVICE H&P Carlo Medina [...] (05/2024), and CKD 3 who presented to [place] ED on 09/30/2024 for SOB and R [...] was this morning prior to going to [place]. He denies any hematochezia, melena, or hematemesis. Pt also endorses mild chills and cold hands. He denies any headache, dizziness, chest pain, palpitations, or sick contacts. He states he is compliant with medications. Chart Review: Admission 08/31-09/11/24- Presented to [place] ED for evaluation of intermittent abd pain, N/V, and SOB of 1 wk duration. In the ED, pt presented afebrile, HDS, in no acute distress on RA. Initial workup including BNP 3900, CXR w/ pulmonary vascular congestion, concerning for ADHF. Treated with IVF and Zofran, transferred to [facility] and initially admitted to [facility] on 09/01. HF team consulted 09/02, [...] 2mg was continued. Admission 08/09-08/20/24- Presented to [facility] ED on 08/09/24 for chest pain, [...] accept IV electrolytes. Nephrology consulted. Notified by [facility] that patient's insurance is out of network, pt accepted for transfer to [facility] but refused bed when it was [...] PO. Pt was recommended for admission to [facility] for[facility] management. Vitals: 09/30/242122 BP: Pulse: [...] heart failure (HCC), DVT (deep venous thrombosis) ([facility]), Hypercholesteremia, Iron deficiency anemia, Stage 2 chronic [...] 113/95 -- (!) 103 15 96 % 09/30/240 107/86 -- (!) 104 13 100 % 09/30/240 93/73 -- (!) 106 (!) 22 100 [...] (05/2024), and CKD 3 who presented to [place] ED on 09/30/2024 for SOB and R [...] Family Medicine- PGY 1 FM Team Pager: [phone] documented in this [id number] Progress note* Transfer Note - Carleen Weber MD - 10/01/2024 4:00 PM EDT TRANSFER NOTE Patient: Mr. Carlo Medina, a 44 year old (Full Code) Room: [place] [address] 1980 FROM [facility] TO cardiac icu Admit Date: 09/30/2024 Today's Date: 10/01/2024 Length of stay: 1 day(s) HOSPITAL COURSE: Carlo Medina is a 44 year old male w/ PMH of HFrEF (18% by TTE 08/11/24), LBBB, HTN, HLD, bilateral DVT (05/2024), and CKD 3 who presented to [place] ED on 09/30/2024 for SOB and R [...] Complete course of ceftriaxone and doxycycline (SD /3) for CAP [] F/u strep pneumo and legionella [] F/u blood cultures [] Optimize GDMT as able [] Inpatient workup of cirrhosis vs Outpatient liver clinic Disposition: TBD Inpatient CONSULTS: IP CARDIOLOGY HEART FAILURE CONSULT Outpatient f/u: PCP PROBLEM LIST: Refer to progress notes Report called to overlock sleeve setter at 6:36 PM Carleen Weber MD Family Medicine PGY-2 [facility] Work Phone: [phone]) 794-679304-04-2025 Consult note* Aryan Cervantes MD - 10/01/2024 10:00 AM EDTAssociated Order(s): IP CARDIOLOGY HEART FAILURE CONSULT Images from the original note were not included. New Patient Consult HF Consult Service 10/01/2024 10:00 AM Name: Carlo Medina Room: [place] [address]/2 : 1980 male 44 year old Admit [...] fluids, continues to trend down. Follows at [facility]. Last seen recently in Jul, [...] PRN: metoclopramide 10 mg Q6H PRN MEDICATIONS COMSEC MANAGER: Prior to Admission medications Medication Sig Start Date End Date Taking? Authorizing Provider Apixaban (ELIQUIS) 5 MG tablet Take 5 mg by mouth 2 times daily. NON-[facility], PROVIDER Cholecalciferol 50 MCG (1999 UT) CAPS Take 1 Capsule by mouth daily. NON- [facility], PROVIDER losartan (COZAAR) 50 MG tablet Take 50 mg by mouth daily. 08/04/24 08/04/25 NON- [facility], PROVIDER losartan (COZAAR) 25 MG tablet 07/30/24 [facility], PROVIDER magnesium oxide (MAG-OX) 400 (240 Mg) MG TABS tablet Take 400 mg by mouth daily. 07/31/24 NON-[facility], PROVIDER metoprolol (TOPROL-XL) 25 mg XL tablet Take 25 mg by mouth daily. 08/21/24 08/21/25 NON-[facility], PROVIDER pantoprazole (PROTONIX) 40 MG tablet Take 40 mg by mouth daily. NON-[facility], PROVIDER potassium chloride SA (K-DUR) 20 MEQ controlled release tablet 07/30/24 NON- [facility], PROVIDER sodium bicarbonate 650 MG tablet Take 2 Tablets by mouth 2 times daily. NON- [facility], PROVIDER spironolactone (ALDACTONE) 25 MG tablet Take 25 mg by mouth daily. 08/04/24 08/04/25 NON-[facility], PROVIDER hydrALAZINE (APRESOLINE) 25 MG tablet 1 tablet with food Orally three times a day NON-[facility], PROVIDER isosorbide dinitrate (ISORDIL) 20 MG tablet Take 3 Tablets by mouth 3 times daily. NON-[facility], PROVIDER metoclopramide (REGLAN) 5 MG tablet Take [...] by mouth 2 times daily. 07/16/24 NON- [facility], PROVIDER calcitRIOL (ROCALTROL) 0.5 MCG capsule Take [...] to 8 values) 10/01/2024 09/30/2024 09/09/2024 09/08/2024 09/06/202409/06/2024 09/05/2024 09/04/2024 4:36 AM 4:21 PM 4:01 [...] results found for: LVEF EF 18% at [facility]/ [facility]: Non-obstructive CAD IMPRESSION Acute on chronic HFrEF with low cardiac output state Severe MR Severe TR Type 2 NC 2/2 supply demand mismatch RECOMMENDATIONS - Recommend [...] Department of Cardiovascular Diseases Heart and Vascular [facility] Teaching Physician Note: I saw and evaluated the patient. I personally obtained the reardon and critical portions of the historyand physical exam. I reviewed the resident's documentation and discussed the patient with the resident. I agree with the resident's medical decision making as documented in the resident's note. Aryan Cervantes MD [id number] Consult note* Kameron Janay - 10/01/2024 9:04 AM EDT Images from the original note were not included. Dietitian vs DietaryTech: [employer] Diet Facilities Clerk Nutrition Screening Reason for visit: Positive nutrition [...] Will continue to follow, Janay Melo, Diet Facilities Clerk Pager [phone] Time spent on patient care: 30 minutes [id number] History and physical note* Lance Ennis MD - 10/01/2024 8:56 AM EDT Images from the original note were not included. Family Medicine Attending H&P Carlo Medina [id number] Inpatient Attending/Teaching Physician Note: I saw and [...] DVT and CKD stage 3presented to the [place] emergency department yesterday with shortness of breath [...] Home when clinically stable Lance Ennis MD [id number] [employer] Work Phone: 1(462) 628-295104-03-2025 History and physical note* Harris Hutchinson MD - 09/30/2024 11:12 PM EDT Images from the original note were not included. SENIOR NOTE I saw and evaluated the patient. I personally obtained the reardon and critical portions of the historyand physical exam. I reviewed the procurement intern's documentation and discussed the patient with the procurement intern.I agree with the procurement intern's medical decision making as documented in the procurement intern's note. Further details provided in the procurement intern's note. Briefly: SUBJECTIVE Carlo Medina is a 44 year old male w/ PMH of HFrEF (18% by TTE 08/11/24), LBBB, HTN, HLD, bilateral DVT (05/2024), and CKD 3 who presented to [place] ED on 09/30/2024 for SOB and R [...] normal. Rest of labs and imaging per procurement intern note ASSESSMENT/PLAN Carlo Medina is a 44 year old male w/ PMH of HFrEF (18% by TTE 08/11/24), LBBB, HTN, HLD, bilateral DVT (05/2024), and CKD 3 who presented to [place] ED on 09/30/2024 for SOB and R [...] Daily weights and Accurate I/O's Rest per procurement intern note. Harris Hutchinson MD Family Medicine PGY2 [id number] History and physical note* Pauline Denny MD - 09/30/2024 10:43 PM EDT Images from the original note were not included. [place] [id number] FAMILY MEDICINE INPATIENT SERVICE H&P Carlo Medina [...] (05/2024), and CKD 3 who presented to [place] ED on 09/30/2024 for SOB and R [...] was this morning prior to going to [place]. He denies any hematochezia, melena, or hematemesis. Pt also endorses mild chills and cold hands. He denies any headache, dizziness, chest pain, palpitations, or sick contacts. He states he is compliant with medications. Chart Review: Admission 08/31-09/11/24- Presented to [place] ED for evaluation of intermittent abd pain, N/V, and SOB of 1 wk duration. In the ED, pt presented afebrile, HDS, in no acute distress on RA. Initial workup including BNP 3900, CXR w/ pulmonary vascular congestion, concerning for ADHF. Treated with IVF and Zofran, transferred to [facility] and initially admitted to [facility] on 09/01. HF team consulted 09/02, [...] 2mg was continued. Admission 08/09-08/20/24- Presented to [facility] ED on 08/09/24 for chest pain, [...] accept IV electrolytes. Nephrology consulted. Notified by [facility] that patient's insurance is out of network, pt accepted for transfer to [facility] but refused bed when it was [...] PO. Pt was recommended for admission to [facility] forfurther management. Vitals: 09/30/242122 BP: Pulse: [...] (05/2024), and CKD 3 who presented to [place] ED on 09/30/2024 for SOB and R [...] MS Family Medicine- PGY 1 Team Pager: [phone] [id number] Emergency department Note* Homar Carey RN - 09/30/2024 7:01 PM EDT Pt refuses to swallow whole pills. Attempted with pudding and water. Pill then crushed and pt refused to take more than half [id number] Emergency department Note* Homar Carey RN - [...] room at the time of the evaluation. Plant Operator: not needed - patient preferred language is Filipino. Carlo Medina is a 44 year old [...] (heart failure with reduced ejection fraction) (HCC) [I50.20] History of left bundle branch block (LBBB) [Z86.79] Acute kidney injury superimposed on CKD (HCC) [N17.9, N18.9] Pulmonary vascular congestion [R09.89] SOB (shortness of breath) [R06.02] Cardiogenic shock (HCC) [R57.0] Pneumonia of right lower lobe due [...] BNP. Given this patient was admitted to [facility] for further management. IMPRESSION AND DISPOSITION Clinical Impression Diagnosis Comment Pneumonia of right lower lobe due to infectious organism [J18.9] Hypervolemia, unspecified hypervolemia type [E87.70] HFrEF (heart failure with reduced ejection fraction) ([facility]) [I50.20] Acute kidney injury superimposed on CKD ([facility]) [N17.9, N18.9] Disposition: Admitted to Floor: Family Medicine Service. Report called to Dr. Hutchinson, [facility], 822pm(09/30/242022) The patient has received a medical [...] my direction and personally dictated by me. Ihnaomi reviewed the record and confirm that the note above accurately reflects all work, treatment, procedures, and medical decision making performed by me. Vargas Fisher Note has been documented by Anshu Dominguez on 09/30/2024 documented in this [id number] Emergency department Note* Cipriano Sun RN - 09/30/2024 6:27 PM EDT notified of critical lactate value of 4.3 read back critical results. No New orders [id number] Emergency department Note* Soraida Nixon RN - 09/30/2024 5:[address] BERG NOTIFIED OF CRITICAL LACTATE LEVEL OF 5.0. ORDERS FOLLOWED. [facility] Work Phone: 1(462) 534-503904-03-2025 Physician Emergency department Note* Vargas Berg MD [...] room at the time of the evaluation. Plant Operator: not needed - patient preferred language is Filipino. Carlo Medina is a 44 year old [...] (heart failure with reduced ejection fraction) (HCC) [I50.20] History of left bundle branch block (LBBB) [Z86.79] Acute kidney injury superimposed on CKD (HCC) [N17.9, N18.9] Pulmonary vascular congestion [R09.89] SOB (shortness of breath) [R06.02] Cardiogenic shock (HCC) [R57.0] Pneumonia of right lower lobe due [...] HFrEF (heart failure with reduced ejection fraction) ([facility]) [I50.20] Acute kidney injury superimposed on CKD (HCC) [N17.9, N18.9] Disposition: Admitted to Floor: Family Medicine Service. Report called to Dr. Hutchinson, [facility], 822pm(09/30/242022) The patient has received a medical [...] been documented by Anshu Dominguez on 09/30/2024 [id number] NotePatient Education Material Cardiovascular Chest Pain: Care [...] irregular heartbeat. After you call 911, the biscuit machine operator may tell you to chew [...] Where can you learn more? Go to https://www.[employer].net/patientEd Enter A120 in the search box to learn more about Chest Pain: Care Instructions. Current as of: September 05, 2021 Content Version: 13.3 ? Ret[employer]. Care instructions adapted under license by your healthcare professional. If you have questions about a medical condition or this instruction, always ask your healthcare professional. [employer] disclaims any warranty or liability for your [...] ? Your vomiting is (more content not included)...[facility] NoteEducation Pharmacy - Anticoagulation Entered On: 09/19/2024 10:13 EDT Performed On: 09/19/2024 10:13 EDT by Shabana Fleming RPh Education Pharmacy Anticoagulation Barriers to Learning : None evident TeachBack Methodology : Printed Material Anticoagulant on Discharge : Apixaban Teach Back Notes : Home Eliquis continued on admission Shabana Fleming RPh - 09/19/2024 10:13 [facility] Comment: Request for pharmacy education by discern rule for patient ordered [id number] NoteImmunization Screening Entered On: 09/18/2024 11:33 EDT Performed On: 09/18/2024 11:33 EDT by Nicole Manning RN Immunization Screening Immunizations Current : Unknown Last Tetanus : Unknown Influenza Vaccine : Yes [place] COVID-19 Vaccine : No Nicole Manning RN - 09/18/2024 11:33 [facility]:Order Comment: Order entered secondary to inpatient admission.Result Comment: [id number] NoteHNO ID: [id number] Author: PAMELA CUETO LPN Service: ? Author Type: LICENSED NURSE Type: Progress Notes Filed: 09/17/2024 18:40 Note Text: [facility], Ambulatory Surgery Centers and Remote Sites Emergency Response Form. NOT TO BE USED AT MAIN CAMPUS Complete this report when the Emergency Medical Response is activated (911 calls/EmergencyTransport to the ED) or when a Code Sheet is utilized in the care of a patient (i.e., ASC) Date of the Event: [id number] (Must provide Value) Time of the Event:5:43pm (Must provide Value) Was emergency response activated? (Local EMS/Emergency Department) YES (Must provide Value) Location of the Incident:[facility] ([facility]) (Must provide Value) Reason/Chief Complaint for [...] Alert and orientated Transferred to Hospital ED Junction Maker information: Name of Provider- Pamela Cueto (Must provide value) 0[facility]03-21-2025 History of Present illness Narrative* Pamela Cueto LPN - 09/17/2024 6:17 PM EDT [facility], Ambulatory Surgery Centers and [facility] Sites Emergency Response Form. NOT TO BE USED AT [facility] Complete this report when the Emergency Medical Response is activated (911 calls/EmergencyTransportto the ED) or when a Code Sheet is utilized in the care of a patient (i.e., ASC) Date of the Event: [id number] (Must provide Value) Time of the Event:5:43pm (Must provide Value) Was emergency response activated? (Local EMS/Emergency Department) YES (Must provide Value) Location of the Incident:[facility] ([facility]) (Must provide Value) Reason/Chief Complaint for [...] Alert and orientated Transferred to Hospital ED Junction Maker information: Name of Provider- Pamela Cueto (Must provide value) 0 * King Medina DO - 09/17/2024 5:50 PM EDT [facility] Subjective Carlo Medina is a 44 [...] CHF, cardiac event that appears to be NC, though Patient denies NC. Recently was hospitalized with kidney failure at [facility] and discharged ~5 days ago. Has [...] (primary diagnosis) Given hx, symptoms, EMS called. [facility] arrived within minutes to take Patient to ED. Patient appears stable upon leaving [facility] for ED via EMS. [...] records: Multiple admissions for CHF, Kidney failure, NC recently Differential Diagnoses - Concern for cardiac, dehydration, kidney issues is more likely for the following reason(s): suggested by H&P Contributing Factors Chronic conditions affecting care: CHF, NC, Kidney Disease Chronic conditions addressed by: CHF, NC, Kidney disease - co-morbidities/risk factors. Disposition The patient was other (comment) (ED via EMS). documented in [facility] NoteHNO ID: [id number] Author: KING MEDINA DO Service: ? Author Type: Physician Type: Progress Notes Filed: 09/17/2024 18:40 Note Text: [facility] Sommer Medina is a 44 year old [...] CHF, cardiac event that appears to be NC, though Patient denies NC. Recently was hospitalized with kidney failure at [facility] and discharged ~5 days ago. Has [...] (primary diagnosis) Given hx, symptoms, EMS called. [facility] arrived within minutes to take Patient to ED. Patient appears stable upon leaving [facility] for ED via EMS. [...] records: Multiple admissions for CHF, Kidney failure, NC recently Differential Diagnoses - Concern for cardiac, dehydration, kidney issues is more likely for the following reason(s): suggested by HANDP Contributing Factors Chronic conditions affecting care: CHF, NC, Kidney Disease Chronic conditions addressed by: CHF, NC, Kidney disease - co-morbidities/risk factors. Disposition The patient was other (comment) (ED via EMS).[facility] 09-11-2024 [facility]The [facility] NoteConsults Pt was scheduled for diagnostic paracentesis this afternoon. I was notified by staff that patient refused to have procedure done. Christopher Barakat DO CT/US Procedure ServiceThe [facility]03-05-2025 NotePT A AND OX4. TRANSPORTED TO [facility] WITH [facility]. PT AWARE OF ADMIT AND PLAN OF CARE.[facility]02-26-2025 NoteSee heart failure outreach telephone encounter.[facility]02-26-2025 Telephone encounter Note* Telephone Encounter - Manuela White RPh - 08/25/2024 10:27 AM EST See heart failure outreach telephone encounter. [facility] [employer] Work Phone: 1(197) 154-878402-26-2025 Miscellaneous Notes* Telephone Encounter - Manuela White RPh - 08/25/2024 10:27 AM EST See heart failure outreach telephone encounter. * Telephone Encounter - Ally Machado RN - 08/23/2024 8:41 AM EST 08/09/24-08/20/24 [facility] Admission, Dr Villalobos consult Complicated by refusal to accept IV electrolyte infusions He also refused metro transfer then a bed was avail Again declined life vest 08/22/24 (9:14pm)- [facility] ER- left AMA 08/23/24 (5:25am)- [facility] ER- left AMA [facility] to [facility] the [facility], no answer. Left a brief VM. * Telephone Encounter - Manuela White RPh - 08/23/2024 8:11 AM EST Discharged with heart failure. Needs 72 hour post discharge phone call. 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 HFS believed pt to be in low output HF during most recent hospitalization, but pt was refusing any invasive testing as well as intermittently refusing labs and medications. Noted pt in the emergency dept for the third time since hospital discharge on 08/20 (left AMA from [facility] and [facility]). This AM, presented to [facility] ED with N/V/abd pain- renal function and liver enzymes elevated. Per ED note, pt refused assessment from provider required for transfer to [facility] and insisted on leaving. Discussed case with Rayna Townsend [facility] AUTOMAT WATCHER. Call to pt. Pt answered and hung up right away twice, did answer on the third attempt. Asked pt about current symptoms, he stated you know, the same old thing- my heart and kidneys are bad. Discussed that current symptoms and lab work (n/v/abd pain, SCHUYLER, hepatic congestion, etc) could be related to low output HF/failure of oral therapy. Pt expressed frustration that [facility] will not admit him anymore (insurance is [...] Pt then hung up the phone. Next [facility] follow up scheduled with Dr. Astudillo on 09/02 at 11:30AM. 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 [facility] believed pt to be in low output HF during most recent hospitalization, but pt was refusing any invasive testing as well as intermittently refusing labs and medications. Noted pt in the emergency dept for the third time since hospital discharge on 08/20 (left AMA from [facility] and [facility]). This AM, presented to [facility] ED with N/V/abd pain- renal function and liver enzymes elevated. Per ED note, pt refused assessment from provider required for transfer to [facility] and insisted on leaving. Discussed case with Rayna Townsend [facility] AUTOMAT WATCHER. Call to pt. Pt answered and hung [...] Pt then hung up the phone. Next [facility] follow up scheduled with Dr. Astudillo on 09/02 at 11:30AM. documented in this [facility]02-26-2025 Emergency department Note* Obdulia Sanchez RN - 08/25/2024 2:35 AM EST Patient refusing covid/flu swab stating I would know if I had that and I haven't gotten it since it came out. Dr. Schaffer notified and aware. [facility] [id number] Emergency department Note* Obdulia Sanchez RN - 08/25/2024 2:35 AM EST Patient refusing covid/flu swab stating I would know if I had that and I haven't gotten it since it came out. Dr. Schaffer notified and aware. * Vargas Beach DO - 08/25/2024 1:11 AM EST Emergency Department Encounter Location: [facility] ED Patient: Carlo Medina : 1980 [...] 401 ms QTC Interval 565 ms P Ar[place] 47 degrees QRS Arden -86 degrees T Wave [place] 69 degrees [place] Interval 127 ms CBC auto differential Collection [...] network, plan was to transfer him to [facility] during admissionhowever he refused transfer and signed out AMA. Cardiology recommended [place] guided therapy for his heart failure however [...] symptoms, plan was to transfer him to [facility] where his insurance is excepted. I introduced myself at 7 AM to evaluate the patient. Patient refused my evaluation, states I do not know why you are evaluating me if I cannot even be admitted here. I told him that I will be the one speaking with the transfer center with [facility] and that I needed to perform a physical examinationon him to discuss with the providers at [facility] about the transfer, patient refused my evaluation, states someone come pulled this IV, I am leaving. Patient understands that leaving with his lab abnormalities could lead to permanent disability or , using shared decision making patient will be discharged home with recommendation for close outpatient follow-up. Medications ondansetron (Zofran) injection 4 mg (4 mg IntraVENous Given 08/25/24 041) Final Impression 1. Elevated serum creatinine 2. Elevated brain natriuretic peptide (BNP) level DISPOSITION Discharge 08/25/2024 07:31:22 AM (Please note that portions of this note may have been completed with a voice recognition program. Efforts were made to edit the dictations but occasionally words are mis-transcribed.) Vargas Beach DO [employer] Vargas Beach DO 08/25/24 0758 documented in this [facility]02-26-2025 Physician Emergency department Note* Vargas Beach DO - 08/25/2024 1:11 AM EST Emergency Department Encounter Location: [facility] ED Patient: Carlo Medina : 1980 Date of evaluation: 08/25/2024 ED Provider: Vargas Beach, Time received sign-out: Cesar Medina was checked out to me by [...] 401 ms QTC Interval 565 ms P Ar[place] 47 degrees QRS Arden -86 degrees T Wave [place] 69 degrees [place] Interval 127 ms CBC auto differential Collection [...] network, plan was to transfer him to [facility] during admissionhowever he refused transfer and signed out AMA. Cardiology recommended [place] guided therapy for his heart failure however [...] symptoms, plan was to transfer him to [facility] where his insurance is excepted. I introduced myself at 7 AM to evaluate the patient. Patient refused my evaluation, states I do not know why you are evaluating me if I cannot even be admitted here. I told him that I will be the one speaking with the transfer center with [facility] and that I needed to perform a physical examinationon him to discuss with the providers at [facility] about the transfer, patient refused my evaluation, states someone come pulled this IV, I am leaving. Patient understands that leaving with his lab abnormalities could lead to permanent disability or , using shared decision making patient will be discharged home with recommendation for close outpatient follow-up. Medications ondansetron (Zofran) injection 4 mg (4 mg IntraVENous Given 08/25/24 0415) Final Impression 1. Elevated serum creatinine 2. Elevated brain natriuretic peptide (BNP) level DISPOSITION Discharge 08/25/2024 07:31:22 AM (Please note that portions of this note may have been completed with a voice recognition program. Efforts were made to edit the dictations but occasionally words are mis-transcribed.) Vargas Beach DO [employer] Vargas Beach DO 08/25/24 0758 [facility] [id number] Telephone encounter Note* Telephone Encounter - Ally Machado RN - 08/23/2024 8:41 AM EST 08/09/24-08/20/24 [facility] Admission, Dr Villalobos consult Complicated by refusal to accept IV electrolyte infusions He also refused metro transfer then a bed was avail Again declined life vest 08/22/24 (9:14pm)- [facility] ER- left AMA 08/23/24 (5:25am)- [facility] ER- left AMA T[facility] to call the [facility], no answer. Left a brief VM. [facility] [id number] Miscellaneous Notes* Telephone Encounter - Ally Machado RN - 08/23/2024 8:41 AM EST 08/09/24-08/20/24 [facility] Admission, Dr Villalobos consult 08/22/24 (9:14pm)- [facility] ER- left AMA 08/22/24 (5:25am)- [facility] ER- left AMA * Telephone Encounter - Manuela White RPh - 08/23/2024 8:11 AM EST Discharged with heart failure. Needs 72 hour post discharge phone call. documented in this encounterSBarnesville [id number] Miscellaneous Notes* Telephone Encounter - Ally Machado RN - 08/23/2024 8:41 AM EST 08/09/24-08/20/24 [facility] Admission, Dr Villalobos consult Complicated by refusal to accept IV electrolyte infusions He also refused metro transfer then a bed was avail Again declined life vest 08/22/24 (9:14pm)- [facility] [facility] ER- left AMA 08/23/24 (5:25am)- [facility] ER- left AMA Tried to [facility] the [facility], no answer. Left a brief VM. * Telephone Encounter - Manuela White RPh - 08/23/2024 8:11 AM EST Discharged with heart failure. Needs 72 hour post discharge phone call. documented in this encounterSBarnesville [id number] Telephone encounter Note* Telephone Encounter - Manuela White RPh - 08/23/2024 8:11 AM EST Discharged with heart failure. Needs 72 hour post discharge phone call. [facility] Phone: [phone] 148-782002-24-2025 Emergency department Note* Maritza Huff RN - 08/23/2024 7:27 AM EST Patient is refusing the IV and lab work. Patient also refusing the Lopressor. Patient reports that he can't swallow meds. This nurse offered to put it in pudding. Patient then reports he does not take medication this early in the morning. Patient given ice water. Dr. Loaiza aware. [facility] [id number] Emergency department Note* Maritza Huff RN - [...] AM EST Emergency Department Encounter Location: [facility] ED Patient: Carlo Medina : 1980 [...] 380 ms QTC Interval 535 ms P Arden 58 degrees QRS Arden -78 degrees T Wave Arden 76 degrees [place] Interval [address] abdomen pelvis wo [...] said he wanted to be transferred to [facility] because he still has symptoms. The [...] are mis-transcribed.) Vic Loaiza MD Acute Care [facility] Vic Loaiza MD 08/23/24724 * Ladarius Guevara [...] notified of patient arrival. documented in this [facility]02-24-2025 Emergency department Note* Ladarius Guevara RN - 08/23/2024 6:57 AM EST Pt. Ambulated to bathroom. Will monitor for pt. Return to room. [id number] Discharge instructions* Discharge Instructions* Joel Roa MD - 08/23/2024 6:47 AM EST Continue your current medications. Keep your appointment with your solvent plant treater next week. * Attachments The following attachments cannot be sent through Care Everywhere. * Heart Failure Discharge Instructions, Adult (Filipino) documented in this [facility]02-24-2025 Emergency department Triage note* Ladarius Guevara RN [...] per protocol. Provider notified of patient arrival. [facility] [id number] Physician Emergency department Note* Vic Loaiza MD - 08/23/2024 5:25 AM EST Emergency Department Encounter Location: [facility] ED Patient: Carlo Medina : 1980 [...] 380 ms QTC Interval 535 ms P Arden 58 degrees QRS Arden -78 degrees T Wave Ar[place] 76 degrees [place] Interval [address] abdomen pelvis wo [...] said he wanted to be transferred to [facility] because he still has symptoms. The [...] [employer] Vic Loaiza MD 08/23/24724 [facility] [id number] Nurse Note* Jacque Calrk RN - 08/20/2024 3:01 PM EST . IV heplock removed. Discharge instructions reviewed with patient. All questions answered. Pt discharged to home with all belongings. * Jacque Clark RN - 08/20/2024 2:37 PM EST Pt adamant on leaving right now. Pt does not want meds to beds Patient would like medications sent to the [facility] in [place] on [address] . Dr. Aguilar notified via secure chat. * Jacque Clark RN - 08/20/2024 11:[address] Briones notified regarding pt refusing meds and lab draw. * Jacque Clark RN - 08/20/2024 7:[address] Aguilar notified tele order . Okay to have patient off tele. * Yue Patterson RN - 08/18/2024 7:22 PM EST [facility] called and states that patient has [...] the situation and politely declines going to [facility]. I updated Dr. Webb from [facility] regarding patient refusal to leave. 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 documented in this [facility]02-21-2025 Miscellaneous Notes* Care Plan - Jacque Clark RN - 08/20/2024 12:54 PM EST * Care Coordination - Rima Reyes RN - 08/20/2024 12:24 PM EST Cardiology has signed off. Now on PO diuretics. Nephrology following. We do not take pt insurance, has refused transfer to [facility]. Anticipate discharge next 24 hrs, home [...] will be discharged. Refused to go to [facility] last night. We do not accept [...] information and a social security phone number [phone]. Explained that pt would need to contact [...] PM EST Has an accepting DR at [facility], no beds. Continues on IV Bumex. [...] take his insurance. Can only go to [facility]. Made Dr aware, he is waiting for a return call to see if we can transfer. . 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 Met with pt to [...] to pt. * Care Plan - Earlene oMndragon RN - 08/12/2024 1:19 AM EST Problem: [...] any questions or concerns. DAVID Bajwa PA-C [facility] * Individualized Overall Plan of Care Note - Enedina Vega MD - 08/11/2024 10:58 AM EST Images from the original note were not included. Patient: Carlo Medina Room number: [id number] A Date of Admit: 08/09/2024 LOS: 2 days Consult acknowledged Patient had been seen by [facility] - will transfer for continuity of care. Thank you Pager: [phone] Office: [phone]. * Care Coordination - MADDIE Hawk - 08/11/2024 10:55 AM EST 30 day re-admit completed. 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 Pt presents with worsening SOB/CARRERA, [...] restriction diet Weights with parameters Confirmed having [facility] phone number to report new/worsening symptoms and that IV/IM lasix available in the office. OK with continuing in [place] at [facility] for now, but would like to eventually get into [place] office. Importance of medication compliance Heart Failure Accreditation Quality Metrics All Clinical Practice Guidelines and references available on the [facility] Heart Failure resource page (Resources --> [facility] --> Heart Failure) Established Denture Processor: Dr. Astudillo Follow up scheduled within 14 [...] SCHUYLER on CKD (Treatment pathway available on [facility] Heart Failure resource page) LUCRECIA/ARB/ARNI: No BB: Yes, carvedilol 25mg BID MRA: No- 12.5mg spironolactone daily on hold SGLT2-I: No Diuretic: Yes, bumex 1mg PO BID Hydral/ISDN: No MUSIC COORDINATOR-D Appropriateness Screen (Referral pathway available on [facility] Heart Failure resource page) LVEF < 35%: [...] is improving Outcome: Progressing documented in this [facility]02-21-2025 [facility] 08-20-2024 History of Present illness Narrative* [...] adamantly refusing swan. Nephrology consulted/following. Notified by [facility] that patient's insurance is out of network, so called [facility] transfer line and discussed with hospitalist; patient accepted for transferto [facility] pending bed availability. Interval History: No [...] HFrEF (heart failure with reduced ejection fraction) ([facility]) 06/13/2024 Acute kidney injury superimposed on CKD ([facility]) ([facility]) 07/03/2024 At risk for obstructive sleep apnea 05/31/2024 o/p sleep study recommended during admission CHF (congestive heart failure) ([facility]) CKD (chronic kidney disease) H/O noncompliance with medical treatment, presenting hazards to health 06/19/2024 HFrEF (heart failure with reduced ejection fraction) ([facility]) 04/28/2024 History of left bundle branch block (LBBB) 06/19/2024 Hypercholesteremia Hypertension Left against medical advice 08/04/2024 Noncompliance 06/19/2024 NSTEMI (non-ST elevated myocardial infarction) ([facility]) 07/11/2024 Potential for deficient knowledge of congestive heart failure 08/05/2024 Pulmonary embolism ([facility]) Pulmonary vascular congestion 04/28/2024 Sinus tachycardia 06/19/2024 [...] - Continue chronic medications as able. - [facility] following for dispo planning. Notified by [facility] that patient's insurance is out of network and need to call [facility] transfer line ([phone]) to see if we can get him transferred. Called [facility] transfer line and discussed with hospitalist. Patient accepted for transfer to [facility] pending bed availability which was noted [...] - Pending the following - clinical course, weight loss consultant recs Extended Emergency Contact Information Primary Emergency Contact: Kaitlin Hicks Mobile Relation: Significant Other Secondary Emergency Contact: AdamIndira Mobile Relation: Sister Alonzo Aguilar MD Division of Hospitalist Medicine [facility] * Saul Briones MD - 08/20/2024 11:00 AM EST [facility] Progress Note Subjective/ 44 y.o. year old male who we are seeing in consultation for CKD stage 3b. Interval History Patient laying in bed, reports breathing feels improved LE edema improved Blood pressures soft. Denies any chest pain or orthopnea ROS Otherwise negative No interval changes to [facility]. All interval notes/labs/imaging reviewed. Objective/ [...] Mild (BLE Edema: Mild pitting, slight indentation) Doctor Of Osteopathy Strength: Not Performed BRIEF HOSPITAL COURSE: Carlo [...] insurance is out of network, so called [facility] transfer line and discussed with hospitalist; patient accepted for transferto [facility] pending bed availability. 08/19/24 Interval History: [...] 10. 44M w/ sig PMHx: HFrEF, NICM, ([facility] no CAD 05/2024), HTN, HLD, CKD III, DVTs on OAC), and poor health literacy/poor medication/follow up compliance who presented to [facility] on 08/09/24 2/2 SOB, CP< and [...] (Per patient) % Weight Change (Calculated): 0 [place] Body Weight (lbs) (Calculated): 184 lbs [place] Body Weight (Kg) (Calculated): 84 kg % [place] Body Weight (Calculated): 90.8 % BMI (kg/m2) [...] 07/28/2024 0539 07/30/2024 0500 08/04/2024 1002 08/09/2024 21108/10/20242100 Weight Method: Standing scale -- Standing scale [...] Soraida Damon MS, RD, LD Contact: or CR2 Chat (dial *[phone] from hospital phone) * Saul Briones MD - 08/19/2024 12:31 PM EST [facility] Progress Note Subjective/ 44 y.o. year old male who we are seeing in consultation for CKD stage 3b. Interval History Patient laying in bed, reports breathing feels improved Continues to endorse occasional non-productive cough Approx 4.75 L UOP yesterday LE edema improved Blood pressures soft. Denies any chest pain or orthopnea ROS Otherwise negative No interval changes to [facility]. All interval notes/labs/imaging reviewed. Objective/ [...] adamantly refusing swan. Nephrology consulted/following. Notified by [facility] that patient's insurance is out of network, [facility] and discussed with hospitalist; patient accepted for transferto [facility] pending bed availability. Interval History: No [...] HFrEF (heart failure with reduced ejection fraction) ([facility]) 06/13/2024 Acute kidney injury superimposed on CKD ([facility]) ([facility]) 07/03/2024 At risk for obstructive sleep apnea 05/31/2024 o/p sleep study recommended during admission CHF (congestive heart failure) ([facility]) CKD (chronic kidney disease) H/O noncompliance with medical treatment, presenting hazards to health 06/19/2024 HFrEF (heart failure with reduced ejection fraction) ([facility]) 04/28/2024 History of left bundle branch block (LBBB) 06/19/2024 Hypercholesteremia Hypertension Left against medical advice 08/04/2024 Noncompliance 06/19/2024 NSTEMI (non-ST elevated myocardial infarction) ([facility]) 07/11/2024 Potential for deficient knowledge of congestive heart failure 08/05/2024 Pulmonary embolism ([facility]) Pulmonary vascular congestion 04/28/2024 Sinus tachycardia 06/19/2024 LABS: CBC: Recent Labs 08/17/24 0505 08/18/249 08/19/24 0043 WBC 7.4 8.4 7.5 RBC [...] [facility] following for dispo planning. Notified by [facility] that patient's insurance is out of network and need to call [facility] transfer line ([phone]) to see if we can get him transferred. Called [facility] transfer line and discussed with hospitalist. Patient accepted for transfer to [facility] pending bed availability which was noted [...] - Pending the following - clinical course, weight loss consultant recs Extended Emergency Contact Information Primary Emergency Contact: Kaitlin Hicks Mobile Relation: Significant Other Secondary Emergency Contact: Indira Medina Mobile Relation: Sister Alonzo Aguilar MD Division of Hospitalist Medicine [facility] * Sepidehconchita Townsend APRN - ASSOCIATE FINANCIAL PLANNER - 08/19/2024 8:48 AM EST [facility] Cardiology /Electrophysiology Progress Note HPI / Interval History: Carlo Medina is a 44 year old male with a PMH significant for HFrEF, NICM, ([facility] no CAD 05/2024), HTN, HLD, CKD III, DVTs on OAC), and poor health literacy/ poor medication/follow up compliance who presented to [facility] on 08/09/24 secondary to SOB, chest pain, and abdominal pain. EKG sinus tachycardia. Troponin negative. NT Pro BNP 17326. Cardiology consulted and Pt found to be [...] the cardiology office to obtain appropriate covering MANAGER SOCIAL WORK/physician. Medications: apixaban, 5 mg, Oral, BID [START [...] insurance is out of network, so called [facility] transfer line and discussed with hospitalist; patient accepted for transferto [facility] pending bed availability. Interval History: No [...] HFrEF (heart failure with reduced ejection fraction) ([facility]) 06/13/2024 Acute kidney injury superimposed on CKD ([facility]) ([facility]) 07/03/2024 At risk for obstructive sleep apnea 05/31/2024 o/p sleep study recommended during admission CHF (congestive heart failure) ([facility]) CKD (chronic kidney disease) H/O noncompliance with medical treatment, presenting hazards to health 06/19/2024 HFrEF (heart failure with reduced ejection fraction) ([facility]) 04/28/2024 History of left bundle branch block (LBBB) 06/19/2024 Hypercholesteremia Hypertension Left against medical advice 08/04/2024 Noncompliance 06/19/2024 NSTEMI (non-ST elevated myocardial infarction) ([facility]) 07/11/2024 Potential for deficient knowledge of congestive heart failure 08/05/2024 Pulmonary embolism ([facility]) Pulmonary vascular congestion 04/28/2024 Sinus tachycardia 06/19/2024 [...] - Continue chronic medications as able. - [facility] following for dispo planning. Notified by [facility] that patient's insurance is out of network and need to call [facility] transfer line ([phone]) to see if we can get him transferred. Called [facility] transfer line and discussed with hospitalist. Patient accepted for transfer to [facility] pending bed availability which was noted [...] TBD - patient accepted for transfer to [facility] pending bed availability as patient out of network with insurance here - Pending the following - clinical course, weight loss consultant recs Extended Emergency Contact Information Primary Emergency Contact: Kaitlin Hicks Mobile Relation: Significant Other Secondary Emergency Contact: Indira Medina Mobile Relation: Sister Alonzo Otoniel Aguilar MD Division of Hospitalist Medicine [facility] * Selena Carlisle PA-C - 08/18/2024 10:44 AM EST [facility] Progress Note Subjective/ 44 [...] negative No interval changes to [facility]. All interval notes/labs/imaging reviewed. Objective/ [...] with any questions or concerns. DAVID Bajwa, PANinoskaC [facility] This note is not finalized until authorized by Attending physician. Cosigned by Saul Briones MD at 08/18/2024 2:45 PM EST Associated attestation - Saul Briones MD - 08/18/2024 2:45 PM EST Notes reviewed and plan discussed with the PA. Agree with above note except Any variance is noted below. Saul Briones MD [facility] [phone] * Sepideh Townsend APRN - VIKKI - 08/18/2024 8:20 AM EST [facility] Cardiology /Electrophysiology Progress Note HPI / Interval History: Carlo Medina is a 44 year old male with a PMH significant for HFrEF, NICM, ([facility] no CAD 05/2024), HTN, HLD, CKD III, DVTs on OAC), and poor health literacy/ poor medication/follow up compliance who presented to [facility] on 08/09/24 secondary to SOB, chest pain, and abdominal pain. EKG sinus tachycardia. Troponin negative. NT Pro BNP 76266. Cardiology consulted and Pt found to be [...] to follow. Pt is pending transfer to [facility] Medications: apixaban, 5 mg, Oral, BID bumetanide, [...] No primary care provider on file. Room#: [id number]/[id number] A BRIEF HOSPITAL COURSE: Carlo Medina is [...] insurance is out of network, [facility] and discussed with hospitalist; [facility]. Interval History: No [...] HFrEF (heart failure with reduced ejection fraction) ([facility]) 06/13/2024 Acute kidney injury superimposed on CKD (HCC) ([facility]) 07/03/2024 At risk for obstructive sleep apnea 05/31/2024 o/p sleep study recommended during admission CHF (congestive heart failure) ([facility]) CKD (chronic kidney disease) H/O noncompliance with medical treatment, presenting hazards to health 06/19/2024 HFrEF (heart failure with reduced ejection fraction) ([facility]) 04/28/2024 History of left bundle branch block (LBBB) 06/19/2024 Hypercholesteremia Hypertension Left against medical advice 08/04/2024 Noncompliance 06/19/2024 NSTEMI (non-ST elevated myocardial infarction) ([facility]) 07/11/2024 Potential for deficient knowledge of congestive heart failure 08/05/2024 Pulmonary embolism ([facility]) Pulmonary vascular congestion 04/28/2024 Sinus tachycardia 06/19/2024 [...] - Continue chronic medications as able. - [facility] following for dispo planning. Notified by [facility] that patient's insurance is out of network and need to call [facility] transfer line ([phone]) to see if we can get him transferred. Called [facility] transfer line and discussed with hospitalist. Patient accepted for transfer to [facility] pending bed availability which was noted could take awhile (accepting physician: Dr. Govea?). - am labs, replace lytes prn - delirium precautions: increase activity, schedule melatonin at bedtime, and limit nighttime disturbances - DVT prophylaxis: encourage ambulation and already anticoagulated Advance Directive: Full Code Anticipated Discharge - Date - TBD - Location - TBD - patient accepted for transfer to [facility] pending bed availability as patient out of network with insurance here - Pending the following - clinical course, weight loss consultant recs Extended Emergency Contact Information Primary Emergency Contact: Kaitlin Hicks Mobile Relation: Significant Other Secondary Emergency Contact: Indira Medina Mobile Relation: Sister Alonzo Aguilar MD Division of Hospitalist Medicine [facility] * Sepideh TownsendTHOMAS - ASSOCIATE FINANCIAL PLANNER - 08/17/2024 8:35 AM EST [facility] Cardiology /Electrophysiology Progress Note HPI / Interval History: Carlo Medina is a 44 year old male with a PMH significant for HFrEF, NICM, ([facility] no CAD 05/2024), HTN, HLD, CKD III, DVTs on OAC), and poor health literacy/ poor medication/follow up compliance who presented to [facility] on 08/09/24 secondary to SOB, chest pain, and abdominal pain. EKG sinus tachycardia. Troponin negative. NT Pro BNP 54323. Cardiology consulted and Pt found to be [...] Carlisle PA-C - 08/17/2024 8:27 AM EST [facility] Progress Note Subjective/ 44 [...] negative No interval changes to [facility]. All interval notes/labs/imaging reviewed. Objective/ [...] any questions or concerns. DAVID Bajwa, BRONSON [facility] This note is [...] the risk of arrhythmias. Saul Briones MD [facility] [phone] * Edgar eClaya MD - 08/16/2024 9:59 AM EST Hospitalist Progress Note 08/16/2024 Subjective: Admit Date: 08/09/2024 PCP: No primary care provider on file. Room#: [id number] A BRIEF HOSPITAL COURSE: Carlo Medina is [...] adamantly refusing swan. Nephrology consulted/following. Notified by [facility] that patient's insurance is out of network, [facility] and discussed with hospitalist; patient accepted for transferto [facility] pending bed availability. Interval History: No [...] HFrEF (heart failure with reduced ejection fraction) ([facility]) 06/13/2024 Acute kidney injury superimposed on CKD ([facility]) ([facility]) 07/03/2024 At risk for obstructive sleep apnea 05/31/2024 o/p sleep study recommended during admission CHF (congestive heart failure) ([facility]) CKD (chronic kidney disease) H/O noncompliance with medical treatment, presenting hazards to health 06/19/2024 HFrEF (heart failure with reduced ejection fraction) ([facility]) 04/28/2024 History of left bundle branch block (LBBB) 06/19/2024 Hypercholesteremia Hypertension Left against medical advice 08/04/2024 Noncompliance 06/19/2024 NSTEMI (non-ST elevated myocardial infarction) ([facility]) 07/11/2024 Potential for deficient knowledge of congestive heart failure 08/05/2024 Pulmonary embolism ([facility]) Pulmonary vascular congestion 04/28/2024 Sinus tachycardia 06/19/2024 [...] [facility] following for dispo planning. Notified by [facility] that patient's insurance is out of network and need to call [facility] transfer line ([phone]) to see if we can get him transferred. Called [facility] transfer line and discussed with hospitalist. Patient accepted for transfer to [facility] pending bed availability which was noted could take awhile (accepting physician: Dr. Govea?). - am labs, replace lytes prn - delirium precautions: increase activity, schedule melatonin at bedtime, and limit nighttime disturbances - DVT prophylaxis: encourage ambulation and already anticoagulated Advance Directive: Full Code Anticipated Discharge - Date - TBD - Location - TBD - patient accepted for transfer to [facility] pending bed availability as patient out of network with insurance here - Pending the following - clinical course, weight loss consultant recs Extended Emergency Contact Information Primary Emergency Contact: Kaitlin Hicks Mobile Relation: Significant Other Secondary Emergency Contact: Indira Medina Mobile Relation: Sister Edgar Celaya MD Division of Hospitalist Medicine [facility] * Selena Carlisle PA-C - 08/16/2024 8:11 AM EST [facility] Progress Note Subjective/ 44 [...] negative No interval changes to [facility]. All interval notes/labs/imaging reviewed. Objective/ [...] daily while receiving aggressive IV diuresis, give [id number] meq today -Monitor urine output closely, need strict I&Os -Rest of management per primary team Plan d/w patient and primary team We will follow. Please do not hesitate to call with any questions or concerns. DAVID Bajwa, BRONSON [facility] Office This note is not finalized until authorized by Attending physician. Cosigned by Saul Briones MD at 08/16/2024 5:08 PM EST Associated attestation - Saul Briones MD - 08/16/2024 5:08 PM EST Notes reviewed and plan discussed with the PA. Agree with above note except Any variance is noted below. Saul Briones MD [facility] [phone] * Luis Zavaleta PA-C - 08/16/2024 7:13 AM EST [facility] Cardiology /Electrophysiology Progress Note HPI / Interval History: Patient is a 44 year old male with a PMH significant for HFrEF, NICM, HTN who presented to [facility] on 08/09/24 secondary to SOB, chest pain, and abdominal pain. EKG sinus tachycardia. Troponin negative. NT Pro BNP 34100. Cardiology consulted and Pt found to be in ADHF, cold on exam. RHC was recommended, Pt refused. Pt has been intermittently refusing medications/ treatment while inpatient. He has been started on IV diuresis. [facility] May 2024 with no significant CAD. [...] Examination: Vitals: 08/15/24204408/16/24 0029 08/16/24 0355 08/16/24 035 BP: 104/78 109/85 113/81 BP Location: Right [...] 08/16/2024 4:40 PM EST Associated attestation - Abdon, Ab Houser MD - 08/16/2024 4:40 PM EST I, [...] Coppola MD, PhD Advanced Heart Failure Cardiology [facility] [place] 4:40 PM 08/16/24 * Sheela Adan RD [...] muscle mass loss Fluid Accumulation: Mild Extremities Doctor Of Osteopathy Strength: Not Performed Nutrition Assessment: Patient with [...] On: Kcal/kg Weight Used for Energy Requirements: [place] Weight for Energy Calculation (kg): 84 kg Total Energy Requirements (kcals/day): 1793-4479 kcal/day (25-30) Weight Used for Protein Requirements: [place] Weight in Kg Used for Protein Requirements: [...] (Per patient) % Weight Change (Calculated): 0 [place] Body Weight (lbs) (Calculated): 184 lbs [place] Body Weight (Kg) (Calculated): 84 kg % [place] Body Weight (Calculated): 90.8 % BMI (kg/m2) [...] soon to determine Sheela Adan RD Contact: *[phone] * Selena Carlisle PA-C - 08/15/2024 12:10 PM EST [facility] Progress Note Subjective/ 44 [...] negative No interval changes to [facility]. All interval notes/labs/imaging reviewed. Objective/ [...] any questions or concerns. DAVID Bajwa, BRONSON [facility] Office This note is not finalized until authorized by Attending physician. Cosigned by Saul Briones MD at 08/15/2024 6:07 PM EST Associated attestation - Saul Briones MD - 08/15/2024 6:07 PM EST Notes reviewed and plan discussed with the PA. Agree with above note except Any variance is noted below. Saul Briones MD [facility] [phone] * Edgar Celaya MD - 08/15/2024 9:17 AM EST Hospitalist Progress Note 08/15/2024 Subjective: Admit Date: 08/09/2024 PCP: No primary care provider on file. Room#: [id number]/[id number] A BRIEF HOSPITAL COURSE: Carlo eMdina is a 44 y.o. male with history [...] adamantly refusing swan. Nephrology consulted/following. Notified by [facility] that patient's insurance is out of network, so called [facility] transfer line and discussed with hospitalist; patient accepted for transferto [facility] pending bed availability. Interval History: Patient [...] HFrEF (heart failure with reduced ejection fraction) ([facility]) 06/13/2024 Acute kidney injury superimposed on CKD ([facility]) ([facility]) 07/03/2024 At risk for obstructive sleep apnea 05/31/2024 o/p sleep study recommended during admission CHF (congestive heart failure) ([facility]) CKD (chronic kidney disease) H/O noncompliance with medical treatment, presenting hazards to health 06/19/2024 HFrEF (heart failure with reduced ejection fraction) ([facility]) 04/28/2024 History of left bundle branch block (LBBB) 06/19/2024 Hypercholesteremia Hypertension Left against medical advice 08/04/2024 Noncompliance 06/19/2024 NSTEMI (non-ST elevated myocardial infarction) ([facility]) 07/11/2024 Potential for deficient knowledge of congestive heart failure 08/05/2024 Pulmonary embolism ([facility]) Pulmonary vascular congestion 04/28/2024 Sinus tachycardia 06/19/2024 LABS: CBC: Recent Labs 08/13/24 0924 08/14/24 1036 08/15/24 0630 WBC 7.4 7.3 8.1 RBC 4.17* 4.13* 4.38* HGB 13.8 13.8 14.7 HCT 40.9 41.7 43.5 MCV 98.1 101.0* 99.3* RDW 13.2 13.3 13.3 PLT 246 258 258 BMP: Recent Labs 08/13/24 0908/14/24 1036 08/15/24 0630 [...] TCC following for dispo planning. Notified by [facility] that patient's insurance is out of network and need to call [facility] transfer line ([phone]) to see if we can get him transferred. Called [facility] transfer line and discussed with hospitalist. Patient accepted for transfer to [facility] pending bed availability which was noted could take awhile (accepting physician: Dr. Govea?). - am labs, replace lytes prn - delirium precautions: increase activity, schedule melatonin at bedtime, and limit nighttime disturbances - DVT prophylaxis: encourage ambulation and already anticoagulated Advance Directive: Full Code Anticipated Discharge - Date - TBD - Location - TBD - patient accepted for transfer to [facility] pending bed availability as patient out of network with insurance here - Pending the following - clinical course, weight loss consultant recs Extended Emergency Contact Information Primary Emergency Contact: Kaitlin Hicks Mobile Relation: Significant Other Secondary Emergency Contact: AdamIndira Mobile Relation: Sister Edgar Celaya MD Division of Hospitalist Medicine [facility] * Luis Zavaleta PA-C - 08/15/2024 8:05 AM EST [facility] Cardiology /Electrophysiology Progress Note HPI / Interval History: Patient is a 44 year old male with a PMH significant for HFrEF, NICM, HTN who presented to [facility] on 08/09/24 secondary to SOB, chest pain, and abdominal pain. EKG sinus tachycardia. Troponin negative. NT Pro BNP 62733. Cardiology consulted and Pt found to be in ADHF, cold on exam. RHC was recommended, Pt refused. Pt has been intermittently refusing medications/ treatment while inpatient. He has been started on IV diuresis. [facility] May 2024 with no significant CAD. [...] Villalobos MD - 08/14/2024 3:14 PM EST [facility] [place] [facility] Cardiology /Electrophysiology Progress Note HPI / Interval History: Carlo Medina is a 44 year old male with PMH of HFrEF 2/2 NICM ([facility] no CAD 05/2024), HTN, HLD CKD III, DVTs on OAC), and poor health literacy/ poor medication/follow up compliance who presented to [facility] on 08/09/24 with complaints of chest [...] Bumex drip. Refuses right heart cath and [place] guided therapyif needed. - Continue to hold [...] for ED and Inpatient algorithms. Recent Labs 08/12/24 0134 08/13/2492308/14/24 1036 NA 136 136 138 K 4.3 3.7 3.3* CL 106 105 102 CO2 19* 20* 26 BUN 42* 47* 39* CREATININE 2.23* 2.24* 2.17* Recent Labs 08/12/24 0134 08/13/24 0908/14/24 1036 WBC 8.0 7.4 7.3 HGB 14.0 [...] Carlisle PA-C - 08/14/2024 1:39 PM EST [facility] Nephrology Progress Note Subjective/ 44 y.o. year [...] with any questions or concerns. DAVID Bajwa, PANinoskaC [facility] Office This note is not finalized until authorized by Attending physician. Cosigned by Saul Briones MD at 08/14/2024 4:02 PM EST Associated attestation - Saul Briones MD - 08/14/2024 4:02 PM EST Notes reviewed and plan discussed with the PA. Agree with above note except Any variance is noted below. Saul Briones MD [facility] [phone] * Edgar Celaya MD - 08/14/2024 8:38 AM EST Hospitalist Progress Note 08/14/2024 Subjective: Admit Date: 08/09/2024 PCP: No primary care provider on file. Room#: [id number]/[id number] A BRIEF HOSPITAL COURSE: Carlo Medina is [...] adamantly refusing swan. Nephrology consulted/following. Notified by [facility] that patient's insurance is out of network, so called [facility] transfer line and discussed with hospitalist; patient accepted for transferto [facility] pending bed availability. Interval History: Overnight, [...] HFrEF (heart failure with reduced ejection fraction) ([facility]) 06/13/2024 Acute kidney injury superimposed on CKD ([facility]) ([facility]) 07/03/2024 At risk for obstructive sleep apnea 05/31/2024 o/p sleep study recommended during admission CHF (congestive heart failure) ([facility]) CKD (chronic kidney disease) H/O noncompliance with medical treatment, presenting hazards to health 06/19/2024 HFrEF (heart failure with reduced ejection fraction) ([facility]) 04/28/2024 History of left bundle branch block (LBBB) 06/19/2024 Hypercholesteremia Hypertension Left against medical advice 08/04/2024 Noncompliance 06/19/2024 NSTEMI (non-ST elevated myocardial infarction) ([facility]) 07/11/2024 Potential for deficient knowledge of congestive heart failure 08/05/2024 Pulmonary embolism ([facility]) Pulmonary vascular congestion 04/28/2024 Sinus tachycardia 06/19/2024 LABS: CBC: Recent Labs 08/12/2413308/13/24 0924 WBC 8.0 7.4 RBC 4.18* 4.17* HGB 14.0 13.8 HCT 42.2 40.9 MCV 101.0* 98.1 RDW 13.2 13.2 PLT 263 246 BMP: Recent Labs 08/12/2413308/13/24 0924 NA 136 136 K 4.3 3.7 CL 106 105 CO2 19* 20* BUN 42* 47* CREATININE 2.23* 2.24* GLUCOSE 118* 165* CALCIUM 8.2* 8.4 ANIONGAP 11 11 LIVER PROFILE: Recent Labs 08/12/2413308/13/24 0924 AST 47* 38* ALT 86* 83* [...] TCC following for dispo planning. Notified by [facility] that patient's insurance is out of network and need to call [facility] transfer line ([phone]) to see if we can get him transferred. Called [facility] transfer line and discussed with hospitalist. Patient accepted for transfer to [facility] pending bed availability which was noted could take awhile (accepting physician: Dr. Govea?). - am labs, replace lytes prn - delirium precautions: increase activity, schedule melatonin at bedtime, and limit nighttime disturbances - DVT prophylaxis: encourage ambulation and already anticoagulated Advance Directive: Full Code Anticipated Discharge - Date - TBD - Location - TBD - patient accepted for transfer to [facility] pending bed availability as patient out of network with insurance here - Pending the following - clinical course, weight loss consultant recs Extended Emergency Contact Information Primary Emergency Contact: Kaitlin Hicks Mobile Relation: Significant Other Secondary Emergency Contact: Indira Medina Mobile Relation: Sister Edgar Celaya MD Division of Hospitalist Medicine [facility] * Jennifer Cohen, [employer] - ASSOCIATE FINANCIAL PLANNER - 08/13/2024 12:40 PM EST CARE PROGRESSION [...] adamantly refusing swan. Nephrology consulted/following. Notified by [facility] that patient's insurance is out of network, so called [facility] transfer line and discussed with hospitalist; [facility]. Interval History: No [...] HFrEF (heart failure with reduced ejection fraction) ([facility]) 06/13/2024 Acute kidney injury superimposed on CKD ([facility]) ([facility]) 07/03/2024 At risk for obstructive sleep apnea 05/31/2024 o/p sleep study recommended during admission CHF (congestive heart failure) ([facility]) CKD (chronic kidney disease) H/O noncompliance with medical treatment, presenting hazards to health 06/19/2024 HFrEF (heart failure with reduced ejection fraction) ([facility]) 04/28/2024 History of left bundle branch block (LBBB) 06/19/2024 Hypercholesteremia Hypertension Left against medical advice 08/04/2024 Noncompliance 06/19/2024 NSTEMI (non-ST elevated myocardial infarction) ([facility]) 07/11/2024 Potential for deficient knowledge of congestive heart failure 08/05/2024 Pulmonary embolism ([facility]) Pulmonary vascular congestion 04/28/2024 Sinus tachycardia 06/19/2024 LABS: CBC: Recent Labs 08/11/2421608/12/2413308/13/24 0924 WBC 8.2 8.0 7.4 RBC 4.20* 4.18* 4.17* HGB 15.0 13.9 14.0 13.8 HCT 42.0 42.2 40.9 MCV 100.0* 101.0* 98.1 RDW 13.0 13.2 13.2 PLT 243 263 246 BMP: Recent Labs 08/11/2421608/12/2413308/13/24 09 NA 130* 136 136 K 4.0 4.3 3.7 CL 102 106 105 CO2 18* 19* 20* BUN 39* 42* 47* CREATININE 1.80* 2.23* 2.24* GLUCOSE 94 118* 165* CALCIUM 8.4 8.2* 8.4 ANIONGAP 10 11 11 LIVER PROFILE: Recent Labs 08/11/2408/12/25 0134 08/13/24 0924 AST 47* 47* 38* [...] and need to call [facility] transfer line ([phone]) to see if we can get him transferred. Called [facility] transfer line and discussed with hospitalist. Patient accepted for transferto [facility] pending bed availability which was noted could take awhile (accepting physician: Dr. Govea?). - am labs, replace lytes prn - delirium precautions: increase activity, schedule melatonin at bedtime, and limit nighttime disturbances - DVT prophylaxis: encourage ambulation and already anticoagulated Advance Directive: Full Code Anticipated Discharge - Date - TBD - Location - TBD - patient accepted for transfer to [facility] pending bed availability as patient out of network with insurance here - Pending the following - clinical course, weight loss consultant recs Extended Emergency Contact Information Primary Emergency Contact: Kaitlin Hicks Mobile Relation: Significant Other Secondary Emergency Contact: Indira Medina Mobile Relation: Sister Edgar Celaya MD Division of Hospitalist Medicine [facility] * Selena Carlisle PA-C - 08/13/2024 9:39 AM EST [facility] Progress Note Subjective/ 44 [...] negative No interval changes to [facility]. All interval notes/labs/imaging reviewed. Objective/ [...] d/w patient, RN on floor and cardiology ASSOCIATE FINANCIAL PLANNER We will follow. Please do not hesitate to call with any questions or concerns. DAVID Bajwa, BRONSON [facility] Office This note is [...] of further deterioration. Declined. Saul Briones MD [facility] [phone] * Sepideh Townsend, [employer] - ASSOCIATE FINANCIAL PLANNER - 08/13/2024 7:22 AM EST [facility] [place] [facility] Cardiology /Electrophysiology Progress Note HPI / Interval History: Carlo Medina is a 44 year old male with PMH of HFrEF 2/2 NICM ([facility] no CAD 05/2024), HTN, HLD CKD III, DVTs on OAC), and poor health literacy/ poor medication/follow up compliance who presented to [facility] on 08/09/24 with complaints of chest [...] and need to call [facility] transfer line ([phone]) to see if we can get him transferred. Called [facility] transfer line and discussed with hospitalist. Patient accepted for transfer to [facility] pending bed availability which was noted [...] HFrEF (heart failure with reduced ejection fraction) ([facility]) 06/13/2024 Acute kidney injury superimposed on CKD ([facility]) ([facility]) 07/03/2024 At risk for obstructive sleep apnea 05/31/2024 o/p sleep study recommended during admission CHF (congestive heart failure) ([facility]) CKD (chronic kidney disease) H/O noncompliance with medical treatment, presenting hazards to health 06/19/2024 HFrEF (heart failure with reduced ejection fraction) ([facility]) 04/28/2024 History of left bundle branch block (LBBB) 06/19/2024 Hypercholesteremia Hypertension Left against medical advice 08/04/2024 Noncompliance 06/19/2024 NSTEMI (non-ST elevated myocardial infarction) ([facility]) 07/11/2024 Potential for deficient knowledge of congestive heart failure 08/05/2024 Pulmonary embolism ([facility]) Pulmonary vascular congestion 04/28/2024 Sinus tachycardia 06/19/2024 [...] 11 LIVER PROFILE: Recent Labs 08/09/24 2155 08/11/24 0217 08/12/24 0134 AST 52* 47* 47* ALT 95* [...] Held Coreg. Recs noted. Briefly discussed with overlock sleeve setter and HF attending today. - BNP 16,371 (08/09) -> 10,757 (08/12) - Strict I/O's, daily weight - Nephrology following. Recs noted. - Continue chronic medications as able. - TCC following for dispo planning. Discussed with TCC today. Notified by TCC that patient's insurance is out of network and need to call [facility] transfer line ([phone]) to see if we can get him transferred. Called [facility] transfer line and discussed with hospitalist. Patient accepted for transferto [facility] pending bed availability which was noted could take awhile (accepting physician: Dr. Govea?). - am labs, replace lytes prn - delirium precautions: increase activity, schedule melatonin at bedtime, and limit nighttime disturbances - DVT prophylaxis: encourage ambulation and already anticoagulated Advance Directive: Full Code Anticipated Discharge - Date - TBD - Location - TBD - patient accepted for transfer to [facility] pending bed availability as patient out of network with insurance here - Pending the following - clinical course, weight loss consultant recs Extended Emergency Contact Information Primary Emergency Contact: Kaitlin Hicks Mobile Relation: Significant Other Secondary Emergency Contact: Indira Medina Mobile Relation: Sister Edgar Celaya MD Division of Hospitalist Medicine [facility] * Ofelia Villalobos MD - 08/12/2024 9:33 AM EST [facility] [place] [facility] Cardiology /Electrophysiology Progress Note HPI / Interval History: Carlo Medina is a 44 y.o. male with a PMHx of HFrEF, CKD, HTN, HLD, LBBB, NSTEMI and pulmonary vascular congestion who got admitted from [facility] ED for further evaluation and management of chest pain,ADHF and [place] on CKD. In the ED, patient was afebrile, tachycardic between 110-120's, normal respirations and satting well on 2L NC. CMP showed Scr at 1.94, CBC unremarkable, [place] [address].EKG showed sinus tachycardia with left atrial enlargement. Chest x-ray showed enlarged cardiac silhouette similar to previous exam. He was given morphine 4mg x2 and Zofran 4mg x2. On assessment, patient said he has slept well last night and is feeling okay. 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 He had an episode of [...] Carlisle PA-C - 08/12/2024 7:34 AM EST [facility] Progress Note Subjective/ 44 y.o. year old male who we are seeing in consultation for CKD stage 3b. Interval History Laying in bed, not feeling well C/o abdominal discomfort and nausea Continues to endorse CARRERA Remains on RA UOP suboptimal ROS Otherwise negative No interval changes to PFSH. All interval notes/labs/imaging reviewed. Objective/ Vitals: 08/11/24 1615 08/11/24 2004 08/11/24 2256 08/12/24 0244 BP: 101/80 106/75 108/77 [...] polyethylene glycol (PEG) 3350 Data/ Recent Labs 08/09/24215408/11/24 0217 08/12/24 0134 WBC 8.8 8.2 8.0 HGB 14.2 15.0 13.9 14.0 HCT 42.8 42.0 42.2 MCV 101.7* 100.0* 101.0* PLT 245 243 263 Recent Labs 08/09/24215408/11/24 0217 08/12/24 0134 NA 139 130* 136 [...] any questions or concerns. DAVID Bajwa, BRONSON [facility] Office This note is [...] recommended course of action. Saul Briones MD [facility] [phone] * Duc Nuñez OT - 08/11/2024 2:58 PM EST Images from the original note were not included. OCCUPATIONAL THERAPY [facility] Name/MRN: Carlo Medina ([id number]) Date: 08/11/2024 OT eval and treatment received. [...] be monitored and followed by the diet biomedical instrument technician. Melissa Cortes DT * Lilia Brice PT - 08/11/2024 1:13 PM EST Images from the original note were not included. PHYSICAL THERAPY [facility] Name/MRN: Carlo Medina ([id number]) Date: 08/11/2024 PT orders received. Chart reviewed. Spoke with patient. Patient states he is mobilizing at baseline/independent level and does not need or want PT at this time. Will sign off. Lilia Brice PT * Edgar Celaya MD - 08/11/2024 10:14 AM EST Hospitalist Progress Note 08/11/2024 Subjective: Admit Date: 08/09/2024 PCP: No primary care provider on file. Room#: [id number]/[id number] A BRIEF HOSPITAL COURSE: Carlo Medina is [...] HFrEF (heart failure with reduced ejection fraction) ([facility]) 06/13/2024 Acute kidney injury superimposed on CKD ([facility]) ([facility]) 07/03/2024 At risk for obstructive sleep apnea 05/31/2024 o/p sleep study recommended during admission CHF (congestive heart failure) ([facility]) CKD (chronic kidney disease) H/O noncompliance with medical treatment, presenting hazards to health 06/19/2024 HFrEF (heart failure with reduced ejection fraction) ([facility]) 04/28/2024 History of left bundle branch block [...] - Pending the following - clinical course, weight loss consultant recs Extended Emergency Contact Information Primary Emergency Contact: Kaitlin Hicks Mobile Relation: Significant Other Secondary Emergency Contact: Indira Medina Mobile Relation: Sister Edgar Celaya MD Division of Hospitalist Medicine [facility] documented in this [facility]02-16-2025 Consult note* Sheela Adan RD - 08/15/2024 [...] of care. Sheela Adan RD Contact #: *[phone] * Ofelia Villalobos MD - 08/11/2024 11:31 AM EST [facility] [place] [facility] [facility] Cardiology /Electrophysiology Consult Note Reason for Consult/Chief Complaint: Evaluation of HfrEF Referring provider: Dr. Dasha Lyn Established solvent plant treater: History of Present Illness: Carlo Medina is a 44 y.o. male with a PMHx of HFrEF, CKD, HTN, HLD, LBBB, NSTEMI and pulmonary vascular congestion who got admitted from [facility] ED for further evaluation and management of chest pain,ADHF and SCHUYLER on CKD. In the ED, patient was afebrile, tachycardic between 110-120's, normal respirations and satting well on 2L NC. CMP showed Scr at 1.94, CBC unremarkable, [place] [address].EKG showed sinus tachycardia with left atrial enlargement. Chest x-ray showed enlarged cardiac silhouette similar to previous exam. He was given morphine 4mg x2 and Zofran 4mg x2. On assessment, patient said he has slept well last night and is feeling okay. 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 He had an episode of [...] 18 (A) 55 - 100 % Merlin Otilia DATE of SERVICE: 08/11/2024 I, Dr. Villalobos, [...] AM ESTAssociated Order(s): IP CONSULT TO NEPHROLOGY [facility] Nephrology Consultation Note Reason for consultation: SCHUYLER on CKD Chief Complaint: Chest Pain,. ADHF & SCHUYLER on CKD History of Presenting Illness Patient is a 44 y.o. male with PMHx noted below who presented to [facility] ED on 08/09/2024 with chief complaint [...] 2/2 HTN. Denies ever being seen by apprentice instrument technician outpatient. Home medications notable for aldactone 25 mg/day, NaHCo3 tablets 1,300 mg BID, potassium [id number] mEq/day, losartan 50 mg/day, bumex 1 mg [...] HFrEF (heart failure with reduced ejection fraction) ([facility]) 06/13/2024 Acute kidney injury superimposed on CKD (HCC) ([facility]) 07/03/2024 At risk for obstructive sleep apnea 05/31/2024 o/p sleep study recommended during admission CHF (congestive heart failure) ([facility]) CKD (chronic kidney disease) H/O noncompliance with medical treatment, presenting hazards to health 06/19/2024 HFrEF (heart failure with reduced ejection fraction) ([facility]) 04/28/2024 History of left bundle branch block (LBBB) 06/19/2024 Hypercholesteremia Hypertension Left against medical advice 08/04/2024 Noncompliance 06/19/2024 NSTEMI (non-ST elevated myocardial infarction) ([facility]) 07/11/2024 Potential for deficient knowledge of congestive heart failure 08/05/2024 Pulmonary embolism ([facility]) Pulmonary vascular congestion 04/28/2024 Sinus tachycardia 06/19/2024 Past Surgical History: Procedure Laterality Date CARDIAC CATHETERIZATION N/A 06/17/2024 Performed by Akilah Diaz MD at [facility] Cardiac Heating Technician Review of Systems All 12 systems reviewed [...] 0 min Stress: Stress Concern Present (07/12/2024) [employer] Occupational [employer] - Occupational Stress Questionnaire Feeling of Stress : To some extent Social Connections: Moderately Integrated (07/12/2024) Social Connection and Isolation Panel [NHANES] Frequency of Communication with Friends and Family: Twice a week Frequency of Social Gatherings with Friends and Family: Once a week Attends Anabaptist Services: 1 to 4 times per year [...] and judgement, good recall Data Recent Labs 08/09/24 2155 08/11/24 0217 WBC 8.8 8.2 HGB 14.2 15.0 13.9 HCT 42.8 42.0 MCV 101.7* 100.0* PLT 245 243 Recent Labs 08/09/24 2155 08/11/24 0217 NA 139 130* K 3.8 4.0 CL [...] Carlo Medina DATE: August 11, 2024 Office [facility] [phone] Note not finalized until authorized by Attending [...] 12.5 mg twice daily. Saul Briones MD [facility] [phone] documented in this [facility]2025 Telephone encounter Note* Telephone Encounter - Christopher Tai MD - 08/12/2024 3:23 PM EST Images from the original note were not included. PIC Triage Note 08/12/2024 [facility] patient being transferred from: [facility]: Dr Godinez Reason for admission: Heart Failure Reason For Transfer: Out of network, out of insurance History of biventricular HF, EF 20% last year. 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 Other workup pending. Unknown substance/drug history, tox screens negative this admission. Presented 08/09 for chest pain/SOB to [facility]. Admission for acute on chronic CF Repeat [...] have today's weight either Labs Today: [place] 91677 [place] [address] Baseline around 17-20K Cr 2.23 Baseline 1.68 [...] Christopher Tai MD Internal Medicine-Pediatrics PGY-4 Pager: [phone] [id number] Miscellaneous Notes* Telephone Encounter - Christopher Tai MD - 08/12/2024 3:23 PM EST Images from the original note were not included. PIC Triage Note 08/12/2024 [facility] patient being transferred from: [facility]: Dr Godinez Reason for admission: Heart Failure Reason For Transfer: Out of network, out of insurance History of biventricular HF, EF 20% last year. 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 Other workup pending. Unknown substance/drug history, tox screens negative this admission. Presented 08/09 for chest pain/SOB to [facility]. Admission for acute on chronic CF Repeat echo 18% Team wanted to do swan therapy, but patient declined Has also been declining IV meds Currently on Oral bumix W/ hydral and edie Says he'll consider IV management in future if doesn't get better On physical exam: HDS, Laying flat, on room air, no orthopnea Plus 1 edema Dry weight unclear, did not have today's weight either Labs Today: B[place] 70342 [place] , [place] [address] Baseline around 17-20K Cr 2.23 Baseline 1.68 [...] Christopher Tai MD Internal Medicine-Pediatrics PGY-4 Pager: [phone] documented in this [id number] Hospital Discharge instructions* Discharge Instructions* Dia Gaitan RN - 08/11/2024 10:39 AM EST My Heart Failure Action Plan Use the below chart as a guide for daily symptom monitoring after you obtain your morning weight. My Denture Processor: Dr. [facility] [phone] My Diagnosis: Heart failure with reduced ejection fraction My Ejection Fraction: ~20% NORMAL 50-65% My Exercise Goal: as tolerated My Weight Goal: Standing weight day of hospital discharge Weigh yourself daily using the same scale. If you gain more than 3 pounds in 24 hours or 5 pounds in a week Call your Denture Processor!! My Diet Goal: General diet recommendations for [...] your heart. The Cardiac Rehab team at [facility] consists of highly skilled exercise [...] We have easily accessible facilities on both [facility] and [facility] with free street level parking. There is a mandatory 6 week wait period following a hospitalization to ensure you are stable enough to participate. Cardiac Rehab staff will contact you about 2 weeks prior to the identified start date to assess payment and schedule your first visit. If needed, [facility] Financial Assistanceis available! If you have other questions or concerns, be sure to ask your provider. We look forward to seeing you! Our locations: [facility] [phone] (Ground floor past [employer]) [facility] [phone] [id number] (Ground floor) * Discharge Instr - ROBERT* [...] 06/17/2024 Performed by Akilah Diaz MD at [facility] Cardiac Heating Technician Immunization History: There is no immunization history [...] 12.8 oz) Mental Status: {ROBERT Patient Mental Status:28289} IV Access: {ROBERT IV Access:16644} Nursing Mobility/ADLs: Walking {EMELY ADL:21248::Independent} Transfer {EMELY ADL:85841::Independent} Bathing {EMELY ADL:50758::Independent} Dressing {EMELY ADL:::Independent} Toileting {EMELY ADL:::Independent} Feeding {EMELY ADL:::Independent} Greaser And Oiler {EMELY ADL:::Independent} Med Delivery {yes/no:81401} Wound Care Documentation and Therapy: Elimination: Continence: Bowel: {yes/no:03287} Bladder: {yes/no:20145} Urinary Catheter: {ROBERT Urinary Catheter:16078} Colostomy/Ileostomy/Ileal Conduit: {YES / NO:} Date of Last BM: Intake/Output Summary (Last 24 hours) at 08/19/2024 1349 Last data filed at 08/19/2024 0800 Gross per 24 hour Intake 650 ml Output 3350 ml Net -2700 ml I/O last 3 completed shifts: In: 1130 (16.2 mL/kg) [P.O.:1130] Out: 7450 (106.8 mL/kg) [Urine:7450 (3 mL/kg/hr)] Weight: 69.8 kg Safety Concerns: {ROBERT Safety Concerns:33554} Impairments/Disabilities: {ROBERT Impairments/Disabilities:20557} Nutrition Therapy: Current Nutrition Therapy: {ROBERT Diet List:16427} Routes of Feeding: {routes of feedin} Liquids: {liquid consistency:46328} Daily Fluid Restriction: {daily fluid restriction:28878} Last Modified Barium Swallow with Video (Video Swallowing Test): {done not done:43592} Treatments at the Time of Hospital Discharge: Respiratory Treatments: Oxygen Therapy: {Therapy; copd oxygen:81669} Ventilator: {ROBERT Ventilator:14259} Rehab Therapies: {GEN THERAPY DISCIPLINE SCAL:0133401} Weight Bearing Status/Restrictions: {POD WEIGHT BEARIN} Other Medical Equipment (for information only, NOT a DME order): {Assistive Devices DME:95826} Other Treatments: Patient's personal belongings (please select all that are sent with patient): {ROBERT Patient Belongings:51695} RN SIGNATURE: {E-signature:93756} CASE MANAGEMENT/SOCIAL WORK SECTION Inpatient Status Date: Discharging to Facility/ Agency Name: Address: Phone: Fax: Dialysis Facility (if applicable) Name: Address: Dialysis Schedule: Phone: Fax: Career Resource Specialist/Reviewer Sales signature: {E-signature:05514} PHYSICIAN SECTION Name: Carlo Medina Prognosis: {Rehab Prognosis:07802} Condition at Discharge: {Patient Condition:54074} Rehab Potential (if transferring to Rehab): {Rehab Prognosis:52080} Recommended Labs or Other Treatments After Discharge: The individual is being admitted to a nursing facility directly from an [facility] or a unit of a [facility] that is not operated by or licensed by [facility] under section 5119.14 or 5160-3-15.1 5 The individual requires the level of services provided by a nursing facility for the condition for which he or she was treated in the hospital and, Physician Certification: I certify the above information and transfer of Carlo Medina is necessary for the continuing treatment of the diagnosis listed and that he requires {ROBERT Level of Care:30134} for {greater less than:83744} 30 days. Update Admission H&P: {ROBERT Changes in H&P:71160} PHYSICIAN SIGNATURE: {E-signature:10752} documented in this [facility]02-11-2025 [facility] 08-10-2024 History and physical note* Dasha [...] below who got admitted from the [facility] ED to the hospital forfurther evaluation and management of Chest Pain, ADHF & SCHUYLER on CKD. Upon arrival to the ED, the pt was tachycardiac 110-120s, afebrile, satting well on 2L NC. The initial workup at the ED revealed: - sCr: 1.94 - CBC wnl - Pro-BNP: 11903 - Trop wnl - EKG showed sinus [...] HFrEF (heart failure with reduced ejection fraction) ([facility]) 06/13/2024 Acute kidney injury superimposed on CKD ([facility]) ([facility]) 07/03/2024 At risk for obstructive sleep apnea 05/31/2024 o/p sleep study recommended during admission CHF (congestive heart failure) ([facility]) CKD (chronic kidney disease) H/O noncompliance with medical treatment, presenting hazards to health 06/19/2024 HFrEF (heart failure with reduced ejection fraction) ([facility]) 04/28/2024 History of left bundle branch block (LBBB) 06/19/2024 Hypercholesteremia Hypertension Left against medical advice 08/04/2024 Noncompliance 06/19/2024 NSTEMI (non-ST elevated myocardial infarction) ([facility]) 07/11/2024 Potential for deficient knowledge of congestive heart failure 08/05/2024 Pulmonary embolism ([facility]) Pulmonary vascular congestion 04/28/2024 Sinus tachycardia 06/19/2024 Past Surgical History: Past Surgical History: Procedure Laterality Date CARDIAC CATHETERIZATION N/A 06/17/2024 Performed by Akilah Diaz MD at [facility] Cardiac Heating Technician Social History: Social History Socioeconomic History Marital [...] 0 min Stress: Stress Concern Present (07/12/2024) [employer] Occupational Health - Occupational Stress Questionnaire Feeling of Stress : To some extent Social Connections: Moderately Integrated (07/12/2024) Social Connection and Isolation Panel [NHANES] Frequency of Communication with Friends and Family: Twice a week Frequency of Social Gatherings with Friends and Family: Once a week Attends Anabaptist Services: 1 to 4 times per year [...] 8.8 ANIONGAP 8 LIVER PROFILE: Recent Labs 08/09/245 AST 52* ALT 95* BILITOT 2.2* ALKPHOS [...] Dasha Lyn MD Division of Hospitalist Medicine [facility] documented in this [facility]02-11-2025 Emergency department Note* Deena Piper RN - [...] No other requests at present time. ERLEY * Marycarmen Dias RN - 08/10/2024 11:39 [...] bp cuff that patient removed was replaced. ERLEY * Deena Piper RN - 08/10/2024 1:10 AM EST Patient turned educational recruiter light. Patient requesting to use restroom. The [...] HFrEF (heart failure with reduced ejection fraction) ([facility]) 06/13/2024 Acute kidney injury superimposed on CKD ([facility]) ([facility]) 07/03/2024 At risk for obstructive sleep apnea 05/31/2024 o/p sleep study recommended during admission CHF (congestive heart failure) ([facility]) CKD (chronic kidney disease) H/O noncompliance with medical treatment, presenting hazards to health 06/19/2024 HFrEF (heart failure with reduced ejection fraction) ([facility]) 04/28/2024 History of left bundle branch block (LBBB) 06/19/2024 Hypercholesteremia Hypertension Left against medical advice 08/04/2024 Noncompliance 06/19/2024 NSTEMI (non-ST elevated myocardial infarction) ([facility]) 07/11/2024 Potential for deficient knowledge of congestive heart failure 08/05/2024 Pulmonary embolism ([facility]) Pulmonary vascular congestion 04/28/2024 Sinus tachycardia 06/19/2024 SURGICAL HISTORY Past Surgical History: Procedure Laterality Date CARDIAC CATHETERIZATION N/A 06/17/2024 Performed by Akilah iDaz MD at [facility] Cardiac Heating Technician CURRENT MEDICATIONS Previous Medications APIXABAN (ELIQUIS) 5 [...] 0 min Stress: Stress Concern Present (07/12/2024) [employer] Occupational Health - Occupational Stress Questionnaire Feeling of Stress : To some extent Social Connections: Moderately Integrated (07/12/2024) Social Connection and Isolation Panel [NHANES] Frequency of Communication with Friends and Family: Twice a week Frequency of Social Gatherings with Friends and Family: Once a week Attends Anabaptist Services: 1 to 4 times per year [...] [facility] (Per Emergency Physician): Chest x-ray shows [...] injection 4 mg (4 mg IntraVENous Given 2/10/25 2202) ondansetron (Zofran) injection 4 mg (4 mg [...] admission, will be awaiting a bed at [facility]. I informed patient I would re-order his home meds but he declined and stated he would rather have them at [facility]. CRITICAL CARE TIME CONSULTS: None PROCEDURES: [...] Emergency Medicine Provider Joel Fernandes MD 08/09/24 7441 Joel Fernandes MD 08/10/24 8992 * Deena Piper RN - 08/09/2024 9:09 [...] ultrasound IV if needed. documented in this [facility]02-10-2025 NoteChart reviewed. 2nd attempt to contact patient for transitions post-discharge outreach. No answer, left VM to please return my call. Will follow up again. [facility]02-06-2025 Telephone encounter Note* Telephone Encounter - Ally Machado RN - 08/05/2024 1:33 PM EST Lengthy conversation with the pt. He was unsure if he plans to follow with Dr Astudillo or any doctors in [place] as he was really disappointed in the [...] them to call back with any questions. [id number] Miscellaneous Notes* Telephone Encounter - Ally Machado RN - 08/05/2024 1:33 PM EST Lengthy conversation with the pt. He was unsure if he plans to follow with Dr Astudillo or any doctors in [place] as he was really disappointed in the [...] med changes from yesterday (increase Losartan, Increase Humnoke). He may decrease potassium supplement to 20 [...] office. Patient in NAD. documented in this [facility]02-06-2025 Telephone encounter Note* Telephone Encounter - Sergei Astudillo MD - 08/05/2024 1:10 PM EST Labs reviewed -- I still recommedn the med changes from yesterday (increase Losartan, Increase Humnoke). He may decrease potassium supplement to 20 mEq. He denied SOB yesterday -- however, he did note that the lasix didn't make him urinate much about baselline. He can try Bumex 1 mg BID to REPLACE Lasix to see if this helps him urinate more and improve his SOB [facility] [id number] Telephone encounter Note* Telephone Encounter - Ally Machado RN - 08/05/2024 1:04 PM EST Pt presented to ER last evening, approx [address] Astudillo in office. Pt then left theER AMA, less than 20 minutes after arriving to the ER. Dr Astudillo will review labs [facility] [id number] Telephone encounter Note* Telephone Encounter - Cristy [...] will call that office. Patient in NAD. [facility] [id number] Emergency department Note* Kelly Spangler RN - 08/05/2024 9:57 AM EST Pt came up to this RN stating he wanted to leave and was done waiting. Pt refused to speak with AUTOMAT WATCHER.PIV removed. Pt ambulated out of IRP with steady gait. Ashtyn JAMES made aware pt left [facility] [id number] Emergency department Note* Kelly Spangler RN - 08/05/2024 9:57 AM EST Pt came up to this RN stating he wanted to leave and was done waiting. Pt refused to speak with AUTOMAT WATCHER.PIV removed. Pt ambulated out of IRP with steady gait. Ashtyn AUTOMAT WATCHER made aware pt left * THOMAS Pearce [...] HFrEF (heart failure with reduced ejection fraction) ([facility]) 06/13/2024 Acute kidney injury superimposed on CKD ([facility]) ([facility]) 07/03/2024 At risk for obstructive sleep apnea 05/31/2024 o/p sleep study recommended during admission CHF (congestive heart failure) ([facility]) CKD (chronic kidney disease) HFrEF (heart failure with reduced ejection fraction) ([facility]) 04/28/2024 History of left bundle branch block (LBBB) 06/19/2024 Hypercholesteremia Hypertension Noncompliance 06/19/2024 NSTEMI (non-ST elevated myocardial infarction) ([facility]) 07/11/2024 Pulmonary embolism ([facility]) Pulmonary vascular congestion 04/28/2024 Sinus tachycardia 06/19/2024 SURGICAL HISTORY Past Surgical History: Procedure Laterality Date CARDIAC CATHETERIZATION N/A 06/17/2024 Performed by Akilah Diaz MD at [facility] Cardiac Heating Technician CURRENT MEDICATIONS Previous Medications APIXABAN (ELIQUIS) 5 [...] 0 min Stress: Stress Concern Present (07/12/2024) [employer] Occupational Health - Occupational Stress Questionnaire Feeling of Stress : To some extent Social Connections: Moderately Integrated (07/12/2024) Social Connection and Isolation Panel [NHANES] Frequency of Communication with Friends and Family: Twice a week Frequency of Social Gatherings with Friends and Family: Once a week Attends Anabaptist Services: 1 to 4 times per year [...] 9:38 PM EST Emergency Department Encounter Location: [facility] Patient: Carlo Medina : [...] hypercholesterolemia hypertension noncompliance pulmonary embolism. Patient shellie Mehreenqupaco. He denies any abdominal discomfort he denies [...] 356 ms QTC Interval 477 ms P Arden 74 degrees QRS Arden -22 degrees T Wave Arden 154 degrees [place] Interval 157 ms CBC auto differential Collection [...] 367 ms QTC Interval 499 ms P Arden 57 degrees QRS Arden -49 degrees T Wave [place] 114 degrees [place] Interval 140 ms Troponin, High Sensitivity, Serial, [...] display I THOMAS Oconnell CNP am the die trouble shooter of record. Final Impression 1. SCHUYLER (acute [...] Prasad CNP 08/05/24 1015 documented in this [facility]02-05-2025 Physician Emergency department Note* THOMAS Pearce CNP [...] HFrEF (heart failure with reduced ejection fraction) ([facility]) 06/13/2024 Acute kidney injury superimposed on CKD ([facility]) ([facility]) 07/03/2024 At risk for obstructive sleep apnea 05/31/2024 o/p sleep study recommended during admission CHF (congestive heart failure) ([facility]) CKD (chronic kidney disease) HFrEF (heart failure with reduced ejection fraction) ([facility]) 04/28/2024 History of left bundle branch block (LBBB) 06/19/2024 Hypercholesteremia Hypertension Noncompliance 06/19/2024 NSTEMI (non-ST elevated myocardial infarction) ([facility]) 07/11/2024 Pulmonary embolism ([facility]) Pulmonary vascular congestion 04/28/2024 Sinus tachycardia 06/19/2024 SURGICAL HISTORY Past Surgical History: Procedure Laterality Date CARDIAC CATHETERIZATION N/A 06/17/2024 Performed by Akilah Diaz MD at [facility] Cardiac Heating Technician CURRENT MEDICATIONS Previous Medications APIXABAN (ELIQUIS) 5 [...] 0 min Stress: Stress Concern Present (07/12/2024) [employer] of Occupational Health - Occupational Stress Questionnaire Feeling of Stress : To some extent Social Connections: Moderately Integrated (07/12/2024) Social Connection and Isolation Panel [NHANES] Frequency of Communication with Friends and Family: Twice a week Frequency of Social Gatherings with Friends and Family: Once a week Attends Anabaptist Services: 1 to 4 times per year [...] Medicine Provider THOMAS Pearce CNP 08/05/24 0703 [facility] HospitalSlpkkj26-27-3662 Physician Emergency department Note* THOMAS Prasad CNP - 08/04/2024 9:38 PM EST Emergency Department Encounter Location: [facility] Patient: Carlo Medina : [...] 356 ms QTC Interval 477 ms P Arden 74 degrees QRS Arden -22 degrees T Wave Arden 154 degrees [place] Interval 157 ms CBC auto differential Collection [...] 367 ms QTC Interval 499 ms P Arden 57 degrees QRS Arden -49 degrees T Wave [place] 114 degrees [place] Interval 140 ms Troponin, High Sensitivity, Serial, [...] No data to display I Ashtyn Miles, LONG [employer] D[employer]ER - ASSOCIATE FINANCIAL PLANNER am the die trouble shooter of record. Final Impression 1. SCHUYLER (acute kidney injury) (HCC) 2. Shortness of breath 3. Chest pain, unspecified type DISPOSITION Eloped 08/05/2024 10:02:30 AM (Please note that portions of this note may have been completed with a voice recognition program. Efforts were made to edit the dictations but occasionally words are mis-transcribed.) Ashtyn Miles APRN - ASSOCIATE FINANCIAL PLANNER [employer] Ashtyn Miles APRN - VIKKI 08/05/24 1015 [employer] Phone: 1([phone]) 264-514702-05-2025 Evaluation + Plan note* Assessment & Plan Note - Sergei Astudillo MD - 08/04/2024 1:57 PM ESTAssociated Problem(s): HFrEF (heart failure with reduced ejection fraction) (HCC) NYHA Class 2 ACC/AHA Stage C HFrEF, with LVEF 20% (May 2024 echo) Etiology: NICM (Cath May 2024) Previous Therapies Beta-blockade: Carvedilol 25 mg BID ACEi/ARB/ARNI: Losartan 25 mg daily (did not tolerate Entresto) Aldosterone Antagonist: Humnoke 12.5 mg daily + KCl Hydralazine/ISDN: none SGLT2i: none -- address at follow ups Diuretic: Lasix 40 mg BID ICD: TBD MUSIC COORDINATOR: TBD Cardiac Rehab: Offer when stable >6 weeks - Euvolemic on exam, BP better controlled -- taking Kcl - Advised and educated on principles of HFrEF management -- including titration of GDMT to max-tolerated doses - Will increase Losartan to 50 mg daily - Increase Humnoke to 25 mg daily -- follow up BMP in 1 week --> would like to stop potassium if in normal range/able Keldeal02-05-2025 Miscellaneous Notes* Assessment & Plan Note - [...] Diuretic: Lasix 40 mg BID ICD: TBD MUSIC COORDINATOR: TBD Cardiac Rehab: Offer when stable >6 weeks - Euvolemic on exam, BP better controlled -- taking Kcl - Advised and educated on principles of HFrEF management -- including titration of GDMT to max-tolerated doses - Will increase Losartan to 50 mg daily - Increase Humnoke to 25 mg daily -- follow up [...] Unprovoked at that time documented in this [facility]02-05-2025 Evaluation + Plan note* Assessment & Plan Note - Sergei Astudillo MD - 08/04/2024 1:54 PM EST Associated Problem(s): Essential hypertension Better controlled today See #1 GDMT [id number] Evaluation + Plan note* Assessment & Plan Note - Sergei Astudillo MD - 08/04/2024 1:54 PM ESTAssociated Problem(s): Acute deep vein thrombosis (DVT) of lower extremity (HCC) BL DVT noted on US on 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 Unprovoked at that time [facility] [id number] History of Present illness Narrative* Sergei Astudillo MD - 08/04/2024 10:15 AM EST Images from the original note were not included. [facility] - [address] [address] Dept: [phone] Dept Loc: [phone] Visit type: Established patient Reason for Visit: New Patient (Referred by Dr Myles), Congestive Heart Failure (Echo pending 08/30/24), and Hospital Follow-up (6 admission since Jan 2024) Assessment and Plan 1. HFrEF (heart failure with reduced ejection fraction) ([facility]) Assessment & Plan: NYHA Class 2 ACC/AHA Stage C HFrEF, with LVEF 20% (May 2024 echo) Etiology: NICM (Cath May 2024) Previous Therapies Beta-blockade: Carvedilol 25 mg BID ACEi/ARB/ARNI: Losartan 25 mg daily (did not tolerate Entresto) Aldosterone Antagonist: Humnoke 12.5 mg daily + KCl Hydralazine/ISDN: none SGLT2i: none -- address at follow ups Diuretic: Lasix 40 mg BID ICD: TBD MUSIC COORDINATOR: TBD Cardiac Rehab: Offer when stable >6 [...] daily., Starting Fri08/04/2024, Until Fri08/04/2025, Normal - losartan (Cozaar) 50 MG tablet; Take 1 tablet (50 mg) by mouth daily., Starting 08/04/2024, Until Fri08/04/2025, Normal - Basic metabolic panel [...] HFrEF (heart failure with reduced ejection fraction) ([facility]) 06/13/2024 Acute kidney injury superimposed on CKD ([facility]) ([facility]) 07/03/2024 At risk for obstructive sleep apnea 05/31/2024 o/p sleep study recommended during admission CHF (congestive heart failure) ([facility]) CKD (chronic kidney disease) HFrEF (heart failure with reduced ejection fraction) ([facility]) 04/28/2024 History of left bundle branch block (LBBB) 06/19/2024 Hypercholesteremia Hypertension Noncompliance 06/19/2024 NSTEMI (non-ST elevated myocardial infarction) ([facility]) 07/11/2024 Pulmonary embolism ([facility]) Pulmonary vascular congestion 04/28/2024 Sinus tachycardia 06/19/2024 Social History Tobacco Use Smoking status: Never Passive exposure: Never Smokeless tobacco: Never Substance Use Topics Alcohol use: Never Past Surgical History: Procedure Laterality Date CARDIAC CATHETERIZATION N/A 06/17/2024 Performed by Akilah Diaz MD at [facility] Cardiac Heating Technician Family History Problem Relation Name Age of [...] of Cardiovascular Disease, Division of Heart Failure [facility] [place] documented in this [facility]02-05-2025 Instructions* Patient Instructions* Sergei Astudillo MD - [...] in ~ 2 weeks documented in this [facility]02-04-2025 Telephone encounter Note* Telephone Encounter - Kaitlin Gonzalez LPN - 08/03/2024 9:44 AM EST Unable to contact patient X2 [facility] [id number] Miscellaneous Notes* Telephone Encounter - Kaitlin Gonzalez LPN - 08/03/2024 9:44 AM EST Unable to contact patient X2 * Telephone Encounter - Kaitlin Gonzalez LPN - 08/02/2024 9:55 AM EST S: Patient admitted to: [facility] 07/23/24 B: Discharged on : 07/30/24 A: Hospital follow up call initiated to discuss any medication changes, follow up appointments and discharge instructions: Acute kidney injury R: No contact x 1 at : [phone] documented in this [facility]02-04-2025 Telephone encounter Note* Telephone Encounter - Dia Gaitan RN - 08/03/2024 9:22 AM EST cake stripper: Pt's sister, Nanci, returned call. Said better to attempt to call pt in the afternoon as he usually sleeps in. Reminded Nanci of pt's upcoming appt tomorrow with Dr. Astudillo and requested she reinforce importance of attendance. 08/04: Pt came to [facility] appt. [facility] [id number] Miscellaneous Notes* Telephone Encounter - Dia Gaitan RN - 08/03/2024 9:22 AM EST cake stripper: Pt's sister, Nanci, returned call. Said better to attempt to call pt in the afternoon as he usually sleeps in. Reminded Nanci of pt's upcoming appt tomorrow with Dr. Astudillo and requested she reinforce importance of attendance. 08/04: Pt came to [facility] appt. documented in this encounterSBarnesville [id number] Telephone encounter Note* Telephone Encounter - Dia Gaitan RN - 08/02/2024 12:03 PM EST cake stripper: Noted 2 unsuccessful attempts to contact pt today for follow up phone calls by SW and furnace caretaker manager. This RN attempted to contact pt [...] left. No further attempts to be made. [facility] [id number] Miscellaneous Notes* Telephone Encounter - Dia Gaitan RN - 08/02/2024 12:03 PM EST cake stripper: Noted 2 unsuccessful attempts to contact pt today for follow up phone calls by and furnace caretaker manager. This RN attempted to contact pt [...] attempts to be made. documented in this [facility]02-03-2025 NoteChart reviewed. Attempted to contact patient for transitions post-discharge outreach. No answer, left VM to please return my call. Will follow up again. [facility]02-03-2025 Telephone encounter Note* Telephone Encounter - Kaitlin Gonzalez LPN - 08/02/2024 9:55 AM EST S: Patient admitted to: [facility] 07/23/24 B: Discharged on : 07/30/24 A: Hospital follow up call initiated to discuss any medication changes, follow up appointments and discharge instructions: Acute kidney injury R: No contact x 1 at : [phone] [facility] [id number] History of Present illness Narrative* Maritza Linn, THOMAS - ASSOCIATE FINANCIAL PLANNER - 07/30/2024 1:19 PM EST [facility] [...] any questions or concerns. Maritza Linn APRN, ASSOCIATE FINANCIAL PLANNER [facility], [employer] [phone] Cosigned by Anand Mccullough MD at 07/30/2024 1:47 PM EST Associated attestation - Anand Mccullough MD - 07/30/2024 1:47 PM EST I have reviewed the above assessment and plan with the AUTOMAT WATCHER. I agree with above note. Cr improving. [...] Strong pulses bilaterally. Fawad Galan MD Cardiology [facility] [place] 11:34 AM 07/30/24 * Michelle Werner - [...] agreeableto drive him to clinic visits at [facility] for advanced heart failure care and evaluation. She is the only construction driver as Mr. Medina doesn't drive, and [...] - He is planning to follow-up at [facility] after conversation with him and his girlfriend, Loco, over the phone; she is agreeable to drive him, requests sales floor team member visits if possible as she works nights - I have discussed his care with Dr. Coppola at [facility], and we will plan to get [...] he establish in advanced HF clinic at [facility] with him and his girlfriend, Loco, [...] Trace edema bilaterally Fawad Galan MD Cardiology [facility] [place] 12:25 PM 07/29/24 * Lilibeth Huber, LONG GOODS DRIER - ASSOCIATE FINANCIAL PLANNER - 07/29/2024 6:33 AM EST Hospitalist Progress Note 07/29/2024 Subjective: Admit Date: 07/23/2024 PCP: No primary care provider on file. Room#: B2-268/B2-268 A BRIEF HOSPITAL COURSE: Carlo is a 44 y.o. male with past medical history significant for heart failure with reduced ejection fraction, chronic kidney disease, left bundle branch block, hypertension, noncompliance behavior, history of non-ST elevation NC who presented to the emergency room with [...] INTAKE/OUTPUT: Intake/Output Summary (Last 24 hours) at 07/29/2024632 Last data filed at 07/28/20242022 Gross per 24 hour Intake 480 ml Output 1400 ml Net -920 ml Past Medical History: Past Medical History: Diagnosis Date Acute HFrEF (heart failure with reduced ejection fraction) ([facility]) 06/13/2024 Acute kidney injury superimposed on CKD ([facility]) ([facility]) 07/03/2024 At risk for obstructive sleep apnea 05/31/2024 o/p sleep study recommended during admission CHF (congestive heart failure) ([facility]) CKD (chronic kidney disease) HFrEF (heart failure with reduced ejection fraction) ([facility]) 04/28/2024 History of left bundle branch block (LBBB) 06/19/2024 Hypercholesteremia Hypertension Noncompliance 06/19/2024 NSTEMI (non-ST elevated myocardial infarction) ([facility]) 07/11/2024 Pulmonary vascular congestion 04/28/2024 Sinus tachycardia [...] THOMAS Huber CNP Division of Hospitalist Medicine [facility] * Fawad Galan MD - 07/28/2024 [...] encouraged that he follow-up in clinic at [facility] for advanced HF given his low EF - Previuosly declined ICD - Will plan to discharge on losartan 25mg; he states he will not be taking the entresto at discharge - Continue apixaban, carvedilol - Plan to resume spironolactone at discharge - Will consider conversatin regarding location of his follow-up care; if he is willing to consider [facility] for follow-ups, I may discuss with HF navigator if a [employer] arranged ride is possible given the possible financial barrier for him (GF is only construction driver, challenge paying for gas) and his [...] that he should plan to follow-up at [facility], and he indicated his only concern [...] bilateral lower extremities Fawad Galan MD Cardiology [facility] [place] 3:31 PM 07/28/24 * THOMAS Carlos CNP [...] -Complex MDM -High risk for progression to INSPECTOR WATCH ASSEMBLY dependence given history of noncompliance -High risk of decompensation with noncompliance with medications/labs. -We will follow closely with you Thank you for the consult and the opportunity to participate in the care of this patient. Please donot hesitate to contact us with any questions or concerns. Maritza Linn APRN, ASSOCIATE FINANCIAL PLANNER [facility], [facility] [phone] Cosigned by Anand Mccullough MD at 07/28/2024 4:00 PM EST Associated attestation - Anand Mccullough MD - 07/28/2024 4:00 PM EST I have reviewed the above assessment and plan with the AUTOMAT WATCHER. I agree with above note. Cr improving. C/w IV lasix. Replete K pRN. * Maritza Linn APRN - VIKKI - 07/27/2024 1:31 PM EST [facility] Progress Note Subjective/ 44 y.o. year old [...] to po diuresis tomorrow 07/28, d/w Jovanna AUTOMAT WATCHER cards -Follow BNP for guided diuresis 26,294-->20,238-->18,824-->18,561 [...] -Complex MDM -High risk for progression to INSPECTOR WATCH ASSEMBLY dependence given history of noncompliance -High risk of decompensation with noncompliance with medications/labs. -We will follow closely with you Thank you for the consult and the opportunity to participate in the care of this patient. Please donot hesitate to contact us with any questions or concerns. Maritza Linn APRN, ASSOCIATE FINANCIAL PLANNER [facility], [facility] [phone] Cosigned by Anand Mccullough MD at 07/28/2024 3:58 PM EST * Jovanna Christian PA-C - 07/27/2024 12:36 PM EST [facility] [place] [facility] Cardiology /Electrophysiology Progress Note HPI / Interval History: Mr. Carlo Medina, 44 year old male presents to [facility] due to heart failure. He has a history of nonischemic cardiomyopathy with severe biventricular failure, last EF measured 20% per transthoracic echo June 15, 2024. Hx of [facility] heart failure adm due to poor compliance and poor health literacy. He has had extended and multiple discussions about medical Rx. -recently DC from [facility] 07/05, [facility] 07/[facility], presented to the office 07/21 volume overloaded-in which he admitted he had not been taking most of his meds or diuretics. He has been recommended and has been referred to [facility] heart failure clinic. Recently noted to have increased wt as outpt at [facility] and K+5.8 was subsequently found. He was then readmitted to [facility], and placed on Lasix IV for diuresis. Nephrology has been following to assist. It is noted he had a large volume diuresis of 6400 cc over the last 24 hours. Renal function actually improved with this. I had spoken with Dr. Zhang in the office, who again recommended his follow-up being in the heart failure clinic at [facility]. He wanted him quoted a [...] up in our heart failure clinic at [facility]. Dr. Zhang wanted again it reiterated [...] Inpatient algorithms. Recent Labs 07/26/24 0907 07/27/24 010 NA 138 140 K 3.4* 3.6 CL 103 102 CO2 23 24 BUN 40* 35* CREATININE 2.14* 1.84* Recent Labs 07/26/24 0907/27/24 010 WBC 5.5 5.7 HGB 14.1 13.8 HCT 43.0 42.4 MCV 101.4* 101.9* PLT 240 241 Recent Labs 07/26/24 0907/27/24 0103 BNP 18,824* 18,561* No results for [...] Service 07/27/2024 * Berenice Rosenthal APRN - ASSOCIATE FINANCIAL PLANNER - 07/27/2024 12:36 PM EST I attest and agree with Nicole Cross NP student's progress note, assessment and plan of [...] is a 44 y.o. male admitted to [facility] on 07/23/24 with complain of SOB and [...] Work history: not working now, worked at [employer] before status: No Anabaptist alfredo: Adventist ROS: See palliative care ROS/ESAS below; All other systems were reviewed and are negative. Spencer Symptom Assessment Score Spencer Score Pain Score (if non-verbal, add .FLACC [...] of Terminal Illness: Is patient hospice appropriate? TBShan Holloway MD * Taylor Mar - 07/26/2024 2:29 PM EST Images from the original note were not included. Spiritual Care Note [facility] Patient Name:Carlo Medina Chief Complaint: [...] Christian PA-C - 07/26/2024 1:08 PM EST [facility] [place] [facility] Cardiology /Electrophysiology Progress Note HPI / Interval History: Mr. Carlo Medina, 44 year old male presents to [facility] due to heart failure. He has a history of nonischemic cardiomyopathy with severe biventricular failure, last EF measured 20% per transthoracic echo June 15, 2024. Hx of [facility] heart failure adm due to poor compliance and poor health literacy. He has had extended and multiple discussions about medical Rx. -recently DC from [facility] 07/05, [facility] 07[place], presented to the office 07/21 volume overloaded-in which he admitted he had not been taking most of his meds or diuretics. He has been recommended and has been referred to [facility] heart failure clinic. Recently noted to have increased wt as outpt at [facility] and K+5.8 was subsequently found. - he continues to be diuresed, IV lasix 80 mg twice daily. He continues to state he does not wish to be transferred to [facility]. States he will consider outpatient follow up in the heart failure clinic at [facility]. We had a lengthy discussion regarding the [...] Inpatient algorithms. Recent Labs 07/23/24212607/24/24 0243 07/24/24 0607/26/24 0907 NA 140 138 138 138 K [...] Christian PA-C Date Of Service 07/26/2024 * THOMAS Carlos CNP - 07/25/2024 4:06 PM EST Hospitalist Progress Note 07/25/2024 Subjective: Admit Date: 07/23/2024 PCP: No primary care provider on file. Room#: B2-248/B2-063 A BRIEF HOSPITAL COURSE: Carlo is a 44 y.o. male with past medical history significant for heart failure with reduced ejection fraction, chronic kidney disease, left bundle branch block, hypertension, noncompliance behavior, history of non-ST elevation NC who presented to the emergency room with [...] HFrEF (heart failure with reduced ejection fraction) ([facility]) 06/13/2024 Acute kidney injury superimposed on CKD ([facility]) ([facility]) 07/03/2024 At risk for obstructive sleep apnea 05/31/2024 o/p sleep study recommended during admission CHF (congestive heart failure) ([facility]) CKD (chronic kidney disease) HFrEF (heart failure with reduced ejection fraction) ([facility]) 04/28/2024 History of left bundle branch block (LBBB) 06/19/2024 Hypercholesteremia Hypertension Noncompliance 06/19/2024 NSTEMI (non-ST elevated myocardial infarction) ([facility]) 07/11/2024 Pulmonary vascular congestion 04/28/2024 Sinus tachycardia [...] function/K+ level, spoke aboutHF outpatient clinic at [facility] -Cardiology started Metolazone 5 mg daily [...] THOMAS Rosenthal CNP Division of Hospitalist Medicine [facility] * Angel Luis Lassiter MD - [...] weights are notreliable by standing scales at [facility]. See weight below: * THOMAS Mi CNP - 07/25/2024 10:03 AM EST [facility] [place] [facility] Cardiology /Electrophysiology Progress Note HPI / Interval History: Mr. Carlo Medina, 44 year old male presents to [facility] due to heart failure. He has a history of nonischemic cardiomyopathy with severe biventricular failure, last EF measured 20% per transthoracic echo June 15, 2024. Hx of mult heart failure adm due to poor compliance and poor health literacy. He has had extended and multiple discussions about medical Rx. -recently DC from [facility] 07/05, [facility] 07[place], presented to the office 07/21 volume overloaded-in which he admitted he had not been taking most of his meds or diuretics. He has been recommended and has been referred to [facility] heart failure clinic. Recently noted to have increased wt as outpt at [facility] and K+5.8 was subsequently found. - he continues to be diuresed, IV lasix 80 mg twice daily. He continues to state he does not wish to be transferred to [facility]. States he will consider outpatient follow up in the heart failure clinic at [facility]. We had a lengthy discussion regarding the [...] hypertension, noncompliance behavior, history of non-ST elevation NC who presented to the emergency room with [...] HFrEF (heart failure with reduced ejection fraction) ([facility]) 06/13/2024 Acute kidney injury superimposed on CKD ([facility]) ([facility]) 07/03/2024 At risk for obstructive sleep apnea 05/31/2024 o/p sleep study recommended during admission CHF (congestive heart failure) ([facility]) CKD (chronic kidney disease) HFrEF (heart failure with reduced ejection fraction) ([facility]) 04/28/2024 History of left bundle branch block (LBBB) 06/19/2024 Hypercholesteremia Hypertension Noncompliance 06/19/2024 NSTEMI (non-ST elevated myocardial infarction) ([facility]) 07/11/2024 Pulmonary vascular congestion 04/28/2024 Sinus tachycardia [...] function/K+ level, spoke aboutHF outpatient clinic at [facility] -Continue monitor daily weight -Monitor renal [...] Contact: KurtKaitlin Mobile Relation: Significant Other THOMAS Munroe CNP Division of Hospitalist Medicine [place] [facility] documented in this [facility]01-31-2025 Nurse Note* Tamiko Live RN - 07/30/2024 [...] list for patient to find a PCP [facility] [id number] Nurse Note* Tamiko Live RN - 07/30/2024 [...] draw is with US. Request made to INSPECTOR WATCH ASSEMBLY nurse. * Osiris Huber RN - 07/26/2024 5:19 AM EST Attempted to draw lab but patient refused at this time.informed the provider. * Osiris Huber RN - 07/25/2024 5:00 AM EST Attempted to draw lab but patient is refusing to draw lab.Informed the doctor. documented in this [facility]01-31-2025 Note* Nurse Navigation Note - Dia Gaiatn RN - 07/30/2024 12:04 PM EST HF cake stripper: Called pt to confirm that appt at 10:15AM on 08/[address] Astudillo is early enough in the day to accommodate pt's girlfriend's work schedule as she works nights. Offered earlier appt options, but pt states 10:15AM will work out great, no need to reschedule. Confirmed pt knows how to get to [facility]. HF action plan updated in AVS with [facility] contact information. If any further assistance needed, use Secure Chat. Will complete HF discharge call on Wednesday 08/02. [facility] [id number] Note* Nurse Navigation Note - Dia Gaitan RN - 07/30/2024 12:04 PM EST HF cake stripper: Called pt to confirm that appt at 10:15AM on 08/[address] Astudillo is early enough in the day to accommodate pt's girlfriend's work schedule as she works nights. Offered earlier appt options, but pt states 10:15AM will work out great, no need to reschedule. Confirmed pt knows how to get to [facility]. HF action plan updated in AVS with [facility] contact information. If any further assistance needed, use Secure Chat. Will complete HF discharge call on Wednesday 08/02. [facility] [id number] Miscellaneous Notes* Nurse Navigation Note - Dia Gaitan RN - 07/30/2024 12:04 PM EST HF cake stripper: Called pt to confirm that appt at 10:15AM on 08/[address] Astudillo is early enough in the day to accommodate pt's girlfriend's work schedule as she works nights. Offered earlier appt options, but pt states 10:15AM will work out great, no need to reschedule. Confirmed pt knows how to get to [facility]. HF action plan updated in AVS with [facility] contact information. If any further assistance needed, use Secure Chat. Will complete HF discharge call on Wednesday 08/02. * Care Coordination - Brittany Alston RN - 07/30/2024 11:28 AM EST Care Management Progress Note Received another call from [facility] Inpatient Instructional Assistant telling me that AUTOMAT WATCHER needs to call back transfer center today at [facility] even if pt gets DCED today and fax demographics. Secure chatted Peterman S NPand updated that insurance is requesting she call transfer line and to obtain fax where demos can be faxed per O request. Obtained [facility] fax number from AUTOMAT WATCHER [phone] and demos faxed as requested. Length of Stay (Days): 2 GMLOS: No GMLOS Documented * Care Coordination - Brittany Alston RN - 07/30/2024 8:58 AM EST Care Management Progress Note Received call from Pauline from [facility] who is pt's Inpatient in flight refueling manager and she informed this TCC that pt's insurance is OON and should be transferred. Informed her per AUTOMAT WATCHER note that AUTOMAT WATCHER tried to transfer last evening and there were no beds available at [facility]. Met pt at bedside and updated him that his insurance told this TCC that [facility] is out of network with his insurance. [...] CNP - 07/29/2024 5:11 PM EST Called [facility] transfer line to see about transferring patient to them as he is apparently outof network. Was told that they have a waiting list for beds. Gave [facility] patient information and will call back [...] No primary care provider on file. Room#: B2268/B2268 A BRIEF HOSPITAL COURSE: Carlo is a 44 y.o. male with past medical history of heart failure with reduced ejection fraction, chronic kidney disease, left bundle branch block, hypertension, noncompliance behavior, history ofnon-ST elevation NC who presented to the emergency department with [...] HFrEF (heart failure with reduced ejection fraction) ([facility]) 06/13/2024 Acute kidney injury superimposed on CKD ([facility]) ([facility]) 07/03/2024 At risk for obstructive sleep apnea 05/31/2024 o/p sleep study recommended during admission CHF (congestive heart failure) ([facility]) CKD (chronic kidney disease) HFrEF (heart failure with reduced ejection fraction) ([facility]) 04/28/2024 History of left bundle branch block [...] Sister Nicole Cross Division of Hospitalist Medicine [facility] Cosigned by THOMAS Carlos CNP at [...] Chart reviewed. Pt has been admitted to [facility] several times with in the past month. Has a history of non-compliance. Cardiology, nephrology, and palliative following. Receiving IV Lasix. Cr improving at this time. Pt will not qualify for [facility] due to no PCP. Discharge plan will be home when medically ready. manager corporate marketing to follow and assist as needed. * [...] block, hypertension, noncompliance behavior, history ofnon-ST elevation NC who presented to the emergency department with [...] HFrEF (heart failure with reduced ejection fraction) ([facility]) 06/13/2024 Acute kidney injury superimposed on CKD ([facility]) ([facility]) 07/03/2024 At risk for obstructive sleep apnea 05/31/2024 o/p sleep study recommended during admission CHF (congestive heart failure) ([facility]) CKD (chronic kidney disease) HFrEF (heart failure with reduced ejection fraction) ([facility]) 04/28/2024 History of left bundle branch block (LBBB) 06/19/2024 Hypercholesteremia Hypertension Noncompliance 06/19/2024 NSTEMI (non-ST elevated myocardial infarction) ([facility]) 07/11/2024 Pulmonary vascular congestion 04/28/2024 Sinus tachycardia [...] Sister Nicole Cross Division of Hospitalist Medicine [facility] Cosigned by THOMAS Carlos CNP at [...] block, hypertension, noncompliance behavior, history ofnon-ST elevation NC who presented to the emergency department with [...] HFrEF (heart failure with reduced ejection fraction) ([facility]) 06/13/2024 Acute kidney injury superimposed on CKD ([facility]) ([facility]) 07/03/2024 At risk for obstructive sleep apnea 05/31/2024 o/p sleep study recommended during admission CHF (congestive heart failure) ([facility]) CKD (chronic kidney disease) HFrEF (heart failure with reduced ejection fraction) ([facility]) 04/28/2024 History of left bundle branch block (LBBB) 06/19/2024 Hypercholesteremia Hypertension Noncompliance 06/19/2024 NSTEMI (non-ST elevated myocardial infarction) ([facility]) 07/11/2024 Pulmonary vascular congestion 04/28/2024 Sinus tachycardia [...] Cross Division of Hospitalist Medicine Acute care [facility] Cosigned by THOMAS Carlos CNP at 07/28/2024 2:35 PM EST * Nurse Navigation Note - Dia Gaitan RN - 07/26/2024 10:20 AM EST HF cake stripper: Chart reviewed. Pt admitted with acute chronic [...] screenings): - S.C. request sent to the Humanities Professor Management team to complete serial telephone outreaches to pt with a focus on reinforcing all HF education and importance of HF GDMT and follow up compliance. - Pt with history of refusing transfer from [facility] to [facility] while hospitalized. Recommend confirming pt is agreeable to follow up with [facility]. If unable or pt does not wish to come to [facility], recommend continued follow up at [facility]. Heart Failure Accreditation Quality Metrics All Clinical Practice Guidelines and references available on the [employer] Heart Failure resource page (Resources --> [facility] --> Heart Failure) Established Denture Processor: Dr. Zhang/Yulissa Ulloa NP Follow up scheduled [...] CKD3 and hyperkalemia (Treatment pathway available on [employer] Heart Failure resource page) LUCRECIA/ARB/ARNI: No (HD Entresto BID on hold) BB: Yes, carvedilol 25mg BID MRA: No SGLT2-I: No Diuretic: Yes- 80mg IV lasix BID (40gm PO lasix daily COMSEC MANAGER) Hydral/ISDN: N/A MUSIC COORDINATOR-D Appropriateness Screen- N/A- Noncompliant with [employer] and [...] RN Outcome: Progressing 07/24/2024 1458 by Slime Lnage RN Outcome: Progressing Problem: Chronic Conditions and [...] is improving Outcome: Progressing documented in this [facility]01-31-2025 Note* Care Coordination - Brittany Alston RN - 07/30/2024 11:28 AM EST Care Management Progress Note Received another call from O Inpatient Instructional Assistant telling me that [employer] needs to call back transfer center today at [facility] even if pt gets DCED today and fax demographics. Secure chatted Adri Loaiza NPand updated that insurance is requesting she call transfer line and to obtain fax where demos can be faxed per MMO request. Obtained [facility] fax number from [employer] [phone] and demos faxed as requested. Length of Stay (Days): 2 GMLOS: No GMLOS Documented [facility] HospitalLysysa16-32-0416 Note* Care Coordination - Brittany Alston RN - 07/30/2024 11:28 AM EST Care Management Progress Note Received another call from O Inpatient Instructional Assistant telling me that [employer]OM[employer] needs to call back transfer center today at [facility] even if pt gets DCED today and fax demographics. Secure chatted Adri Loaiza NPand updated that insurance is requesting she call transfer line and to obtain fax where demos can be faxed per O request. Obtained [facility] fax number from [employer] [phone] and demos faxed as requested. Length of Stay (Days): 2 GMLOS: No GMLOS Documented [facility] [id number] [facility]01-31-2025 Hospital course Narrative* Lilibeth HuberTHOMAS - ASSOCIATE FINANCIAL PLANNER - 07/30/2024 11:05 AM EST Hospitalist Discharge [...] hypertension, noncompliance behavior, history of non-ST elevation NC who presented to the emergency room with [...] HFrEF (heart failure with reduced ejection fraction) ([facility]) 06/13/2024 Acute kidney injury superimposed on CKD ([facility]) ([facility]) 07/03/2024 At risk for obstructive sleep apnea 05/31/2024 o/p sleep study recommended during admission CHF (congestive heart failure) ([facility]) CKD (chronic kidney disease) HFrEF (heart failure with reduced ejection fraction) ([facility]) 04/28/2024 History of left bundle branch block (LBBB) 06/19/2024 Hypercholesteremia Hypertension Noncompliance 06/19/2024 NSTEMI (non-ST elevated myocardial infarction) ([facility]) 07/11/2024 Pulmonary vascular congestion 04/28/2024 Sinus tachycardia [...] Complexity: follow up within 7-14 calendar days (16344) [x] Severe Complexity: follow up within 7 calendar days (89097) Follow up Testing, Pending results or Referrals [...] Castillo CNP Division of Hospitalist Medicine Acute [facility] 07/30/2024, 11:06 AM Cosigned by Darrell Kohler MD at 07/30/2024 7:16 PM EST documented in this [facility]01-31-2025 Note* Care Coordination - Brittany Alston RN - 07/30/2024 8:58 AM EST Care Management Progress Note Received call from Pauline from [facility] who is pt's Inpatient in flight refueling manager and she informed this TCC that pt's insurance is OON and should be transferred. Informed her per AUTOMAT WATCHER note that [employer] tried to transfer last evening and there were no beds available at [facility]. Met pt at bedside and updated him that his insurance told this TCC that [facility] is out of network with his insurance. Pt states he did NOT know this. Pt encouraged to reach out to his insurance for further explanation. Length of Stay (Days): 2 GMLOS: No GMLOS Documented [facility] [id number] Note* Care Coordination - Brittany Alston RN - 07/30/2024 8:58 AM EST Care Management Progress Note Received call from Pauline from [facility] who is pt's Inpatient in flight refueling manager and she informed this TCC that pt's insurance is OON and should be transferred. Informed her per AUTOMAT WATCHER note that AUTOMAT W[employer]ER tried to transfer last evening and there were no beds available at [facility]. Met pt at bedside and updated him that his insurance told this TCC that [facility] is out of network with his insurance. Pt states he did NOT know this. Pt encouraged to reach out to his insurance for further explanation. Length of Stay (Days): 2 GMLOS: No GMLOS Documented [facility] HospitalHljioh13-86-8093 Plan of care note* Care Plan - [...] monitored and maintained or improved Outcome: Progressing [facility] HospitalNilntv16-48-5634 Plan of care note* Care Plan - [...] Goal: Nutritional status is improving Outcome: Progressing [facility] [id number] Note* Significant Event - THOMAS Larson CNP - 07/29/2024 5:11 PM EST Called [facility] transfer line to see about transferring patient to them as he is apparently outof network. Was told that they have a waiting list for beds. Gave [facility] patient information and will call back tomorrow to see where they are with beds. Patient likely will be discharged tomorrow. [facility] [id number] Note* Significant Event - THOMAS Larson CNP - 07/29/2024 5:11 PM EST Called [facility] transfer line to see about transferring patient to them as he is apparently outof network. Was told that they have a [facility] beds[facility] tomorrow to see where they are with beds. Patient likely will be discharged tomorrow. [facility] [id number] Plan of care note* Care Plan - [...] plan, medications, and discharge instructions Outcome: Progressing [facility] [id number] Nurse Note* Tamiko Live RN - 07/29/2024 10:15 AM EST Nursing went to give IV Magnesium and patient refused. Notified Lilibeth Anguiano APRN. [facility] HospitalNqqlzq45-55-1705 Plan of care note* Care Plan - [...] Goal: Nutritional status is improving Outcome: Progressing [facility] HospitalRtuhfz08-97-2797 NoteNon billable note I attest and agree with Nicole Cross AUTOMAT WATCHER Student's assessment, progress note and plan of care for today [facility]01-29-2025 Note* Medical Student - Nicole Cross - 07/28/2024 12:37 PM EST Hospitalist Progress Note 07/28/2024 Subjective: Admit Date: 07/23/2024 PCP: No primary care provider on file. Room#: B2-281/B2-990 A BRIEF HOSPITAL COURSE: Carlo is a 44 y.o. male with past medical history of heart failure with reduced ejection fraction, chronic kidney disease, left bundle branch block, hypertension, noncompliance behavior, history ofnon-ST elevation NC who presented to the emergency department with [...] HFrEF (heart failure with reduced ejection fraction) ([facility]) 06/13/2024 Acute kidney injury superimposed on CKD ([facility]) ([facility]) 07/03/2024 At risk for obstructive sleep apnea 05/31/2024 o/p sleep study recommended during admission CHF (congestive heart failure) ([facility]) CKD (chronic kidney disease) HFrEF (heart failure with reduced ejection fraction) ([facility]) 04/28/2024 History of left bundle branch block (LBBB) 06/19/2024 Hypercholesteremia Hypertension Noncompliance 06/19/2024 NSTEMI (non-ST elevated myocardial infarction) ([facility]) 07/11/2024 Pulmonary vascular congestion 04/28/2024 Sinus tachycardia [...] Relation: Significant Other Secondary Emergency Contact: Indira Meidna Mobile Relation: Sister Nicole Cross Division of Hospitalist Medicine [facility] Cosigned by THOMAS Carlos CNP at 07/28/2024 2:36 PM EST [facility] HospitalXybdph26-58-1046 Note* Medical Student - Nicole Cross - 07/28/2024 12:37 PM EST Hospitalist Progress Note 07/28/2024 Subjective: Admit Date: 07/23/2024 PCP: No primary care provider on file. Room#: B2-268/B2-268 A BRIEF HOSPITAL COURSE: Carlo is a 44 y.o. male with past medical history of heart failure with reduced ejection fraction, chronic kidney disease, left bundle branch block, hypertension, noncompliance behavior, history ofnon-ST elevation NC who presented to the emergency department with [...] HFrEF (heart failure with reduced ejection fraction) ([facility]) 06/13/2024 Acute kidney injury superimposed on CKD ([facility]) ([facility]) 07/03/2024 At risk for obstructive sleep apnea 05/31/2024 o/p sleep study recommended during admission CHF (congestive heart failure) ([facility]) CKD (chronic kidney disease) HFrEF (heart failure with reduced ejection fraction) ([facility]) 04/28/2024 History of left bundle branch block (LBBB) 06/19/2024 Hypercholesteremia Hypertension Noncompliance 06/19/2024 NSTEMI (non-ST elevated myocardial infarction) ([facility]) 07/11/2024 Pulmonary vascular congestion 04/28/2024 Sinus tachycardia [...] Nicole [place] Division of Hospitalist Medicine [facility] Cosigned by Berenice Rosenthal APRN - VIKKI at 07/28/2024 2:36 PM EST [facility] [id number] Plan of care note* Care Plan - [...] oxygenated and ventilation is improved Outcome: Progressing [facility] HospitalPmefai81-25-5852 Plan of care note* Care Plan - [...] Goal: Nutritional status is improving Outcome: Progressing [facility] HospitalXzyhar07-45-9742 Note* Care Coordination - Narcisa Tavarez RN - 07/27/2024 3:32 PM EST Pt admitted for SCHUYLER. Chart reviewed. Pt has been admitted to [facility] several times with in the past month. Has a history of non-compliance. Cardiology, nephrology, and palliative following. Receiving IV Lasix. Cr improving at this time. Pt will not qualify for HHC due to no PCP. Discharge plan will be home when medically ready. manager corporate marketing to follow and assist as needed. [facility] HospitalCcvyug73-91-2772 Note* Care Coordination - Narcisa Tavarez RN - 07/27/2024 3:32 PM EST Pt admitted for SCHUYLER. Chart reviewed. Pt has been admitted to [facility] several times with in the past month. Has a history of non-compliance. Cardiology, nephrology, and palliative following. Receiving IV Lasix. Cr improving at this time. Pt will not qualify for HHC due to no PCP. Discharge plan will be home when medically ready. manager corporate marketing to follow and assist as needed. [facility] HospitalXjfbbo75-18-4157 NoteI attest and agree with Nicole Cross AUTOMAT WATCHER student's progress note, assessment and [facility] Note* Medical Student - Nicole Cross - 07/27/2024 12:03 PM EST Hospitalist Progress Note 07/27/2024 Subjective: Admit Date: 07/23/2024 PCP: No primary care provider on file. Room#: B2-268/B2268 A BRIEF HOSPITAL COURSE: Carlo is a 44 y.o. male with past medical history of heart failure with reduced ejection fraction, chronic kidney disease, left bundle branch block, hypertension, noncompliance behavior, history ofnon-ST elevation NC who presented to the emergency department with [...] HFrEF (heart failure with reduced ejection fraction) ([facility]) 06/13/2024 Acute kidney injury superimposed on CKD ([facility]) ([facility]) 07/03/2024 At risk for obstructive sleep apnea 05/31/2024 o/p sleep study recommended during admission CHF (congestive heart failure) ([facility]) CKD (chronic kidney disease) HFrEF (heart failure with reduced ejection fraction) ([facility]) 04/28/2024 History of left bundle branch block (LBBB) 06/19/2024 Hypercholesteremia Hypertension Noncompliance 06/19/2024 NSTEMI (non-ST elevated myocardial infarction) ([facility]) 07/11/2024 Pulmonary vascular congestion 04/28/2024 Sinus tachycardia [...] Sister Nicole Cross Division of Hospitalist Medicine [facility] Cosigned by THOMAS Carlos CNP at 07/28/2024 2:36 PM EST [facility] [id number] Note* Medical Student - Nicole Cross - 07/27/2024 12:03 PM EST Hospitalist Progress Note 07/27/2024 Subjective: Admit Date: 07/23/2024 PCP: No primary care provider on file. Room#: B2-426/B2-594 A BRIEF HOSPITAL COURSE: Carlo is a 44 y.o. male with past medical history of heart failure with reduced ejection fraction, chronic kidney disease, left bundle branch block, hypertension, noncompliance behavior, history ofnon-ST elevation NC who presented to the emergency department with [...] HFrEF (heart failure with reduced ejection fraction) ([facility]) 06/13/2024 Acute kidney injury superimposed on CKD ([facility]) ([facility]) 07/03/2024 At risk for obstructive sleep apnea 05/31/2024 o/p sleep study recommended during admission CHF (congestive heart failure) ([facility]) CKD (chronic kidney disease) HFrEF (heart failure with reduced ejection fraction) ([facility]) 04/28/2024 History of left bundle branch block (LBBB) 06/19/2024 Hypercholesteremia Hypertension Noncompliance 06/19/2024 NSTEMI (non-ST elevated myocardial infarction) ([facility]) 07/11/2024 Pulmonary vascular congestion 04/28/2024 Sinus tachycardia 06/19/2024 LABS: CBC: Recent Labs 07/26/24 0907 07/27/24 0103 WBC 5.5 5.7 RBC 4.24* 4.16* HGB 14.1 13.8 HCT 43.0 42.4 MCV 101.4* 101.9* RDW 13.4 13.3 PLT 240 241 BMP: Recent Labs 07/26/24 0907 07/27/24 010 NA 138 140 K 3.4* 3.6 CL 103 102 CO2 23 24 BUN 40* 35* CREATININE 2.14* 1.84* GLUCOSE 114* 95 CALCIUM 8.5 8.4 ANIONGAP 12 14* LIVER PROFILE: Recent Labs 07/26/24 0907 07/27/24 010 AST 27 31 ALT 57* 60* BILITOT [...] Sister Nicole Cross Division of Hospitalist Medicine [facility] Cosigned by THOMAS Carlos CNP at 07/28/2024 2:36 PM EST [id number] Plan of care note* Care Plan - [...] and electrolyte balance are achieved/maintained Outcome: Progressing [id number] Consult note* Anand Mccullough MD - 07/26/2024 5:47 PM EST . [facility] Nephrology Consultation Note Reason for consultation: SCHUYLER on CKD Chief Complaint: Swelling legs and SOB History of Presenting Illness Patient is a 44 y.o. male with past medical history of with past medical history of heart failure with reduced ejection fraction, chronic kidney disease, left bundle branch block, hypertension, noncompliance, history of non-ST elevation NC who presented to the emergency department with complaint ofswelling in the legs and shortness of breath along with abnormal labs. 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 Patient [...] HFrEF (heart failure with reduced ejection fraction) ([facility]) 06/13/2024 Acute kidney injury superimposed on CKD ([facility]) ([facility]) 07/03/2024 At risk for obstructive sleep apnea 05/31/2024 o/p sleep study recommended during admission CHF (congestive heart failure) ([facility]) CKD (chronic kidney disease) HFrEF (heart failure with reduced ejection fraction) ([facility]) 04/28/2024 History of left bundle branch block (LBBB) 06/19/2024 Hypercholesteremia Hypertension Noncompliance 06/19/2024 NSTEMI (non-ST elevated myocardial infarction) ([facility]) 07/11/2024 Pulmonary vascular congestion 04/28/2024 Sinus tachycardia 06/19/2024 Past Surgical History: Procedure Laterality Date CARDIAC CATHETERIZATION N/A 06/17/2024 Performed by Akilah Diaz MD at [facility] Cardiac Heating Technician Review of Systems All 12 systems reviewed [...] 0 min Stress: Stress Concern Present (07/12/2024) [employer] - Occupational Stress Questionnaire Feeling of Stress : To some extent Social Connections: Moderately Integrated (07/12/2024) Social Connection and Isolation Panel [NHANES] Frequency of Communication with Friends and Family: Twice a week Frequency of Social Gatherings with Friends and Family: Once a week Attends Anabaptist Services: 1 to 4 times per year [...] -Follow BNP for guided diuresis 26,294-->20,238-->18,824 -No INSPECTOR WATCH ASSEMBLY indicated at this time however patient at [...] above. I can be easily reachedvia secure CR2 message SIGNATURE: Anand Mccullough MD PATIENT NAME: Carlo Medina DATE: July 26, 2024 Office [facility] [phone] [facility] Phone: [phone]) 987-381801-27-2025 Consult note* Anand Mccullough MD - 07/26/2024 5:47 PM EST . [facility] Nephrology Consultation Note Reason for consultation: SCHUYLER on CKD Chief Complaint: Swelling legs and SOB History of Presenting Illness Patient is a 44 y.o. male with past medical history of with past medical history of heart failure with reduced ejection fraction, chronic kidney disease, left bundle branch block, hypertension, noncompliance, history of non-ST elevation NC who presented to the emergency department with complaint ofswelling in the legs and shortness of breath along with abnormal labs. 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 Patient [...] HFrEF (heart failure with reduced ejection fraction) ([facility]) 06/13/2024 Acute kidney injury superimposed on CKD ([facility]) ([facility]) 07/03/2024 At risk for obstructive sleep apnea 05/31/2024 o/p sleep study recommended during admission CHF (congestive heart failure) ([facility]) CKD (chronic kidney disease) HFrEF (heart failure with reduced ejection fraction) ([facility]) 04/28/2024 History of left bundle branch block (LBBB) 06/19/2024 Hypercholesteremia Hypertension Noncompliance 06/19/2024 NSTEMI (non-ST elevated myocardial infarction) ([facility]) 07/11/2024 Pulmonary vascular congestion 04/28/2024 Sinus tachycardia 06/19/2024 Past Surgical History: Procedure Laterality Date CARDIAC CATHETERIZATION N/A 06/17/2024 Performed by Akilah Diaz MD at [facility] Cardiac Heating Technician Review of Systems All 12 systems reviewed [...] 0 min Stress: Stress Concern Present (07/12/2024) [employer]ati Delong of Occupational Health - Occupational Stress Questionnaire Feeling of Stress : To some extent Social Connections: Moderately Integrated (07/12/2024) Social Connection and Isolation Panel [NHANES] Frequency of Communication with Friends and Family: Twice a week Frequency of Social Gatherings with Friends and Family: Once a week Attends Anabaptist Services: 1 to 4 times per year [...] -Follow BNP for guided diuresis 26,294-->20,238-->18,824 -No INSPECTOR WATCH ASSEMBLY indicated at this time however patient at [...] above. I can be easily reachedvia secure CR2 message SIGNATURE: Anand Mccullough MD PATIENT NAME: Carlo Medina DATE: July 26, 2024 Office [facility] [phone] * Chuyita Holloway MD - 07/25/2024 11:27 [...] patient to fill HCPOA document, consulted social insurance specialist for assistance - discussed goals, discussed patient's EF of 20 %, his medical compliance - discussed CPR, Intubation, Vent - patient stated that he feels fine, he wants everything done for him including CPR, intubation, Vent - Code status remains Full Code - will request palliative director digital strategy for support - discussed with Denture Processor Dr. Lassiter - will continue to have [...] medical non compliance who was admitted to [facility] on 07/23/24 with complain of SOB and [...] Work history: not working now, worked at [employer] before status: No Anabaptist alfredo: Adventist ROS: See palliative care ROS/ESAS below; All other systems were reviewed and are negative. Spencer Symptom Assessment Score Spencer Score Pain Score (if non-verbal, add .FLACC [...] HFrEF (heart failure with reduced ejection fraction) ([facility]) 06/13/2024 Acute kidney injury superimposed on CKD ([facility]) ([facility]) 07/03/2024 At risk for obstructive sleep apnea 05/31/2024 o/p sleep study recommended during admission CHF (congestive heart failure) ([facility]) CKD (chronic kidney disease) HFrEF (heart failure with reduced ejection fraction) ([facility]) 04/28/2024 History of left bundle branch block (LBBB) 06/19/2024 Hypercholesteremia Hypertension Noncompliance 06/19/2024 NSTEMI (non-ST elevated myocardial infarction) ([facility]) 07/11/2024 Pulmonary vascular congestion 04/28/2024 Sinus tachycardia 06/19/2024 Past Surgical History: Procedure Laterality Date CARDIAC CATHETERIZATION N/A 06/17/2024 Performed by Akilah Diaz MD at [facility] Cardiac Heating Technician Family History Problem Relation Name Age of [...] AM ESTAssociated Order(s): IP CONSULT TO CARDIOLOGY [facility] [place]ong [facility] Cardiology Consult Note Reason for Consult/Chief Complaint: HF Established solvent plant treater: Leatha/Rocky HF specialist History of Present Illness: Carlo Medina is a 44 y.o. male nonischemic cardiomyopathy with severe biventricular failure, lastEF measured 20% per transthoracic echo June 15, 2024. [facility] due to poor compliance and poor health literacy. He has had extended and multiple discussions about medical Rx. Recently noted to have increased wt as outpt at [facility] and K+5.8 was subsequently found. Prior to that: Was Dc'd 07/05 from [facility]. That note says they tried to [...] readm for HF shortly thereafter 07/11 to [facility]. Was Dc'd 07/16 from [facility] w/lasix 20 PRN daily for wt gain [...] hospital. Does not want to go back [facility] hospital Seems willing to do [facility] HF clinic when I told him [...] Anticoagulation: OAC for DVT (mgt per primary) ICD/MUSIC COORDINATOR: Candidate for MUSIC COORDINATOR-D if LBBB became chronic but would need to agree to [facility] evaluation as outpt Last CPET: none [...] strongly recommended for Adv HF mgt at [facility] HF clinic; this is supported by his B solvent plant treater Dr. Zhang. Very high risk for readmission. 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 There may be an opportunity for improved [...] be managed here would favor txf to [facility] but pt would likely refuse as [...] No results found for: LDLCHOLESTER Recent Labs 07/23/247 07/24/24 0600 BNP 26,294* 20,238* No results [...] DATE of SERVICE: 07/24/2024 documented in this [facility]01-27-2025 Nurse Note* Raj Chilel RN - 07/26/2024 5:31 PM EST Pt refusing carvedilol and potassium at this time, states he doesn't take meds until 2099. Medication moved to 2099. [facility] [id number] Nurse Note* Raj Chilel RN - 07/26/2024 [...] soda. See I's & O's in flowsheets. [facility] [id number] Note* Medical Student - Nicole Cross - 07/26/2024 1:22 PM EST Hospitalist Progress Note 07/26/2024 Subjective: Admit Date: 07/23/2024 PCP: No primary care provider on file. Room#: B2-268/B2-268 A BRIEF HOSPITAL COURSE: Carlo is a 44 y.o. male with past medical history of heart failure with reduced ejection fraction, chronic kidney disease, left bundle branch block, hypertension, noncompliance behavior, history ofnon-ST elevation NC who presented to the emergency department with [...] HFrEF (heart failure with reduced ejection fraction) ([facility]) 06/13/2024 Acute kidney injury superimposed on CKD ([facility]) ([facility]) 07/03/2024 At risk for obstructive sleep apnea 05/31/2024 o/p sleep study recommended during admission CHF (congestive heart failure) ([facility]) CKD (chronic kidney disease) HFrEF (heart failure with reduced ejection fraction) ([facility]) 04/28/2024 History of left bundle branch block (LBBB) 06/19/2024 Hypercholesteremia Hypertension Noncompliance 06/19/2024 NSTEMI (non-ST elevated myocardial infarction) ([facility]) 07/11/2024 Pulmonary vascular congestion 04/28/2024 Sinus tachycardia [...] Sister Nicole Cross Division of Hospitalist Medicine [facility] Cosigned by THOMAS Carlos CNP at 07/28/2024 2:35 PM EST [facility] [id number] Note* Medical Student - Nicole Cross - 07/26/2024 1:22 PM EST Hospitalist Progress Note 07/26/2024 Subjective: Admit Date: 07/23/2024 PCP: No primary care provider on file. Room#: B2-285/K1-345 A BRIEF HOSPITAL COURSE: Carlo is a 44 y.o. male with past medical history of heart failure with reduced ejection fraction, chronic kidney disease, left bundle branch block, hypertension, noncompliance behavior, history ofnon-ST elevation NC who presented to the emergency department with [...] HFrEF (heart failure with reduced ejection fraction) ([facility]) 06/13/2024 Acute kidney injury superimposed on CKD ([facility]) ([facility]) 07/03/2024 At risk for obstructive sleep apnea 05/31/2024 o/p sleep study recommended during admission CHF (congestive heart failure) ([facility]) CKD (chronic kidney disease) HFrEF (heart failure with reduced ejection fraction) ([facility]) 04/28/2024 History of left bundle branch block [...] Mobile Relation: Sister Nicole Cross [facility] Cosigned by THOMAS Carlos CNP at 07/28/2024 2:35 PM EST [facility] [id number] NoteReferral received from CHF coordinator to please follow patient for transitional program to reinforce CHF education and need for follow up. Will monitor patient for discharge home and make outreaches to patient at that time.[facility]01-27-2025 Note* Nurse Navigation Note - Dia Gaitan RN - 07/26/2024 10:20 AM EST HF cake stripper: Chart reviewed. Pt admitted with acute chronic [...] screenings): - S.C. request sent to the Humanities Professor Management team to complete serial telephone outreaches to pt with a focus on reinforcing all HF education and importance of HF GDMT and follow up compliance. - Pt with history of refusing transfer from [facility] to [facility] while hospitalized. Recommend confirming pt is agreeable to follow up with [facility]. If unable or pt does not wish to come to [facility], recommend continued follow up at [facility]. Heart Failure Accreditation Quality Metrics All Clinical Practice Guidelines and references available on the [facility] Heart Failure resource page (Resources --> [facility] --> Heart Failure) Established Denture Processor: Dr. Zhang/Yulissa Ulloa NP Follow up scheduled [...] CKD3 and hyperkalemia (Treatment pathway available on [facility] Heart Failure resource page) LUCRECIA/ARB/ARNI: No (HD Entresto BID on hold) BB: Yes, carvedilol 25mg BID MRA: No SGLT2-I: No Diuretic: Yes- 80mg IV lasix BID (40gm PO lasix daily COMSEC MANAGER) Hydral/ISDN: N/A MUSIC COORDINATOR-D Appropriateness Screen- N/A- Noncompliant with Lifevest and GDMT Cardiac Rehab - Referral could be considered for HFrEF Heart Failure Triggers for Consult to Palliative Care- appropriately following [facility] [id number] Note* Nurse Navigation Note - Dia Gaitan RN - 07/26/2024 10:20 AM EST HF cake stripper: Chart reviewed. Pt admitted with acute chronic [...] screenings): - S.C. request sent to the Humanities Professor Management team to complete serial telephone outreaches to pt with a focus on reinforcing all HF education and importance of HF GDMT and follow up compliance. - Pt with history of refusing transfer from [facility] to [facility] while hospitalized. Recommend confirming pt is agreeable to follow up with [facility]. If unable or pt does not wish to come to [facility], recommend continued follow up at [facility]. Heart Failure Accreditation Quality Metrics All Clinical Practice Guidelines and references available on the [employer] Heart Failure resource page (Resources --> [facility] --> Heart Failure) Established Denture Processor: Dr. Zhang/Yulissa Ulloa NP Follow up scheduled [...] CKD3 and hyperkalemia (Treatment pathway available on [facility] Heart Failure resource page) LUCRECIA/ARB/ARNI: No (HD Entresto BID on hold) BB: Yes, carvedilol 25mg BID MRA: No SGLT2-I: No Diuretic: Yes- 80mg IV lasix BID (40gm PO lasix daily COMSEC MANAGER) Hydral/ISDN: N/A MUSIC COORDINATOR-D Appropriateness Screen- N/A- Noncompliant with Lifevest and GDMT Cardiac Rehab - Referral could be considered for HFrEF Heart Failure Triggers for Consult to Palliative Care- appropriately following [facility] [id number] Hospital Discharge instructions* Discharge Instructions* Dia Gaitan RN - 07/26/2024 9:55 AM EST My Heart Failure Action Plan Use the below chart as a guide for daily symptom monitoring after you obtain your morning weight. My Denture Processor: You will be new to [facility]'s Heart Failure Clinic on [address] [place] [address] Once established with the heart failure clinic, [...] 5 pounds in a week Call your Denture Processor!! My Diet Goal: General diet recommendations for [...] call Dia Gaitan Heart Failure Navigator at [phone] (Mon-Fri 8AM-4PM) Do not call Dia's number [...] Please call customer service for you [employer] to help establish a Primary Care Physician. * Attachments The following attachments cannot be sent through Care Everywhere. * Controlling Your Blood Pressure Through Lifestyle (Filipino) documented in this [facility]01-27-2025 NoteCardiology and attending made aware that patient refuses metolazone this AM. Education by this nurse ineffective.[facility]01-27-2025 Nurse Note * Raj Chilel RN - 07/26/2024 9:26 AM EST Cardiology and attending made aware that patient refuses metolazone this AM. Education by this nurse ineffective. [facility] [id number] Plan of care note* Care Plan - [...] Goal: Nutritional status is improving Outcome: Progressing [facility] [id number] Nurse Note* Tamiko Live RN - 07/26/2024 7:41 AM EST Patient refusing to let this nurse draw morning labs. Educated the patient on the importance of this process during his hospital stay to monitor his status. The only way he will allow blood draw is with US. Request made to INSPECTOR WATCH ASSEMBLY nurse. [id number] Nurse Note* Osiris Huber RN - 07/26/2024 5:19 AM EST Attempted to draw lab but patient refused at this time.informed the provider. [id number] Plan of care note* Care Plan - Osiris Huber RN - 07/26/2024 3:54 AM EST Problem: Pain - Adult Goal: Verbalizes/displays adequate comfort level or baseline comfort level Outcome: Progressing Problem: Safety - Adult Goal: Free from fall injury Outcome: Progressing Problem: Chronic Conditions and Co-morbidities Goal: Patient's chronic conditions and co-morbidity symptoms are monitored and maintained or improved Outcome: Progressing [facility]-4056 Consult note* Chuyita Holloway MD - 07/25/2024 [...] decision-making -legal surrogate decision maker is daughter, Journey - met with patient this afternoon, introduced self and role - patient stated he lives with his girlfriend Loco, stated had adult daughter of 20 yrs Journey - discussed HCPOA, patient stated he wants his girlfriend to make decisions for him and not his daughter - encouraged patient to fill HCPOA document, consulted social insurance specialist for assistance - discussed goals, discussed patient's EF of 20 %, his medical compliance - discussed CPR, Intubation, Vent - patient stated that he feels fine, he wants everything done for him including CPR, intubation, Vent - Code status remains Full Code - will request palliative director digital strategy for support - discussed with Denture Processor Dr. 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 Spencer Symptom Assessment Score Spencer Score Pain Score (if non-verbal, add .FLACC [...] HFrEF (heart failure with reduced ejection fraction) ([facility]) 06/13/2024 Acute kidney injury superimposed on CKD ([facility]) ([facility]) 07/03/2024 At risk for obstructive sleep apnea 05/31/2024 o/p sleep study recommended during admission CHF (congestive heart failure) ([facility]) CKD (chronic kidney disease) HFrEF (heart failure with reduced ejection fraction) ([facility]) 04/28/2024 History of left bundle branch block (LBBB) 06/19/2024 Hypercholesteremia Hypertension Noncompliance 06/19/2024 NSTEMI (non-ST elevated myocardial infarction) ([facility]) 07/11/2024 Pulmonary vascular congestion 04/28/2024 Sinus tachycardia 06/19/2024 Past Surgical History: Procedure Laterality Date CARDIAC CATHETERIZATION N/A 06/17/2024 Performed by Akilah Diaz MD at [facility] Cardiac Heating Technician Family History Problem Relation Name Age of [...] Transition Note Initiated: yes Chuyita Holloway MD [id number] Nurse Note* Osiris Huber RN - 07/25/2024 5:00 AM EST Attempted to draw lab but patient is refusing to draw lab.Informed the doctor. [id number] Plan of care note* Care Plan - [...] Nutritional status is improving 07/24/2024 172 by Sliem Lange RN Outcome: Progressing 07/24/2024 1458 by [...] 1458 by Slime Lange RN Outcome: Progressing [facility] [id number] Plan of care note* Care Plan - [...] Goal: Nutritional status is improving Outcome: Progressing [facility] [id number] Consult note* Angel Luis Lassiter MD - 07/24/2024 11:54 AM ESTAssociated Order(s): IP CONSULT TO CARDIOLOGY [facility] [place] [facility] Cardiology Consult Note Reason for Consult/Chief Complaint: HF Established solvent plant treater: Leatha/Rocky HF specialist History of Present Illness: Carlo Medina is a 44 y.o. male nonischemic cardiomyopathy with severe biventricular failure, lastEF measured 20% per transthoracic echo June 15, 2024. [facility] of [facility] due to poor compliance and poor health literacy. He has had extended and multiple discussions about medical Rx. Recently noted to have increased wt as outpt at [facility] and K+5.8 was subsequently found. Prior to that: Was Dc'd 07/05 from [facility]. That note says they tried to [...] readm for HF shortly thereafter 07/11 to [facility]. Was Dc'd 07/16 from [facility] w/lasix 20 PRN daily for wt gain [...] hospital. Does not want to go back [facility] hospital Seems willing to do [facility] HF clinic when I told him [...] Anticoagulation: OAC for DVT (mgt per primary) ICD/MUSIC COORDINATOR: Candidate for MUSIC COORDINATOR-D if LBBB became chronic but would need to agree to [facility] evaluation as outpt Last CPET: none [...] strongly recommended for Adv HF mgt at [facility] HF clinic; this is supported by his [facility] solvent plant treater Dr. Zhang. Very high risk for readmission. Appropriate for cardiac rehab if he would attend Noncompliance likely due to multiple factors not all known at this time (medical literacy and social support are issues) contribute to this risk and his poor prognosis half-way. There may be an opportunity for improved [...] Luis Lassiter MD DATE of SERVICE: 07/24/2024 [facility] [id number] History and physical note* Rafa Samuel MD [...] hypertension, noncompliance behavior, history of non-ST elevation NC who presented to the emergency room with [...] HFrEF (heart failure with reduced ejection fraction) ([facility]) 06/13/2024 Acute kidney injury superimposed on CKD ([facility]) ([facility]) 07/03/2024 At risk for obstructive sleep apnea 05/31/2024 o/p sleep study recommended during admission CHF (congestive heart failure) ([facility]) CKD (chronic kidney disease) HFrEF (heart failure with reduced ejection fraction) ([facility]) 04/28/2024 History of left bundle branch block (LBBB) 06/19/2024 Hypercholesteremia Hypertension Noncompliance 06/19/2024 NSTEMI (non-ST elevated myocardial infarction) ([facility]) 07/11/2024 Pulmonary vascular congestion 04/28/2024 Sinus tachycardia 06/19/2024 Past Surgical History: Past Surgical History: Procedure Laterality Date CARDIAC CATHETERIZATION N/A 06/17/2024 Performed by Akilah Diaz MD at [facility] Cardiac Heating Technician Social History: Social History Socioeconomic History Marital [...] 0 min Stress: Stress Concern Present (07/12/2024) [employer] Delong of Occupational Health - Occupational Stress Questionnaire Feeling of Stress : To some extent Social Connections: Moderately Integrated (07/12/2024) Social Connection and Isolation Panel [NHANES] Frequency of Communication with Friends and Family: Twice a week Frequency of Social Gatherings with Friends and Family: Once a week Attends Anabaptist Services: 1 to 4 times per year [...] - DO NOT do CPR, intubation] [_] [DNR-FULL STACK WEB DEVELOPER - Comfort care only] [_] DNR form [...] Rafa Samuel MD Division of Hospitalist Medicine [facility] [employer] Phone: [phone] [facility]01-24-2025 History and physical note* Rafa Samuel [...] hypertension, noncompliance behavior, history of non-ST elevation NC who presented to the emergency room with [...] HFrEF (heart failure with reduced ejection fraction) ([facility]) 06/13/2024 Acute kidney injury superimposed on CKD ([facility]) ([facility]) 07/03/2024 At risk for obstructive sleep apnea 05/31/2024 o/p sleep study recommended during admission CHF (congestive heart failure) ([facility]) CKD (chronic kidney disease) HFrEF (heart failure with reduced ejection fraction) ([facility]) 04/28/2024 History of left bundle branch block (LBBB) 06/19/2024 Hypercholesteremia Hypertension Noncompliance 06/19/2024 NSTEMI (non-ST elevated myocardial infarction) ([facility]) 07/11/2024 Pulmonary vascular congestion 04/28/2024 Sinus tachycardia 06/19/2024 Past Surgical History: Past Surgical History: Procedure Laterality Date CARDIAC CATHETERIZATION N/A 06/17/2024 Performed by Akilah Diaz MD at [facility] Cardiac Heating Technician Social History: Social History Socioeconomic History Marital [...] 0 min Stress: Stress Concern Present (07/12/2024) [employer] Delong of Occupational Health - Occupational Stress Questionnaire Feeling of Stress : To some extent Social Connections: Moderately Integrated (07/12/2024) Social Connection and Isolation Panel [NHANES] Frequency of Communication with Friends and Family: Twice a week Frequency of Social Gatherings with Friends and Family: Once a week Attends Anabaptist Services: 1 to 4 times per year [...] PLT 255 BMP: Recent Labs 07/21/24 1025 07/23/242126 NA -- 140 K -- 4.6 CL [...] Medina Mobile Relation: Sister Secondary Emergency Contact: KurtSurekhaKaitlin Mobile Relation: Significant Other [employer] Carlo Medina : 1980 Primary Care Physician: No primary care provider on file. The patient and/or family/surrogate voluntarily agreed to participate in ACP services. Patient s cognitive capacity: Alert, oriented x 3 Code Status: [x_] [FULL CODE - Continue all advanced life support: CPR,intubation,invasive procedures] [_] [DNR-CCA - DO NOT do CPR, intubation] [_] [DNR-FULL STACK WEB DEVELOPER - Comfort care only] [_] DNR form [...] Rafa Samuel MD Division of Hospitalist Medicine [facility] documented in this encounterSBarnesville [id number] Emergency department Note* Shabana Colbert RN - 07/23/2024 8:04 PM EST robotics testing technician called. [id number] Emergency department Note* Shabana Colbert RN - 07/23/2024 8:04 PM EST robotics testing technician called. * Bertha Pichardo DO - 07/23/2024 7:57 PM EST Emergency Department Encounter [facility] ED Patient: Carlo Medina : 1980 [...] 07/23/2024 7:57 PM EST Emergency Department Encounter [facility] ED Patient: Carlo Medina : 1980 [...] states that he hadlabs drawn at his solvent plant treater the other day, and was told to [...] He had a call today from his solvent plant treater that his kidney labs were elevated, states [...] HFrEF (heart failure with reduced ejection fraction) ([facility]) 06/13/2024 Acute kidney injury superimposed on CKD ([facility]) ([facility]) 07/03/2024 At risk for obstructive sleep apnea 05/31/2024 o/p sleep study recommended during admission CHF (congestive heart failure) ([facility]) CKD (chronic kidney disease) HFrEF (heart failure with reduced ejection fraction) ([facility]) 04/28/2024 History of left bundle branch block (LBBB) 06/19/2024 Hypercholesteremia Hypertension Noncompliance 06/19/2024 NSTEMI (non-ST elevated myocardial infarction) ([facility]) 07/11/2024 Pulmonary vascular congestion 04/28/2024 Sinus tachycardia 06/19/2024 Past Surgical History: Procedure Laterality Date CARDIAC CATHETERIZATION N/A 06/17/2024 Performed by Akilah Diaz MD at [facility] Cardiac Heating Technician Social History Socioeconomic History Marital status: Single [...] 0 min Stress: Stress Concern Present (07/12/2024) [employer] - Occupational Stress Questionnaire Feeling of Stress : To some extent Social Connections: Moderately Integrated (07/12/2024) Social Connection and Isolation Panel [NHANES] Frequency of Communication with Friends and Family: Twice a week Frequency of Social Gatherings with Friends and Family: Once a week Attends Anabaptist Services: 1 to 4 times per year [...] Department Physician in the absence of a solvent plant treater. Please see Bonita for interpretation of EKG. [...] reports hx of CHF. documented in this [facility]01-24-2025 Emergency department Triage note* Shabana Colbert RN - 07/23/2024 7:57 PM EST Pt arrived through triage with c/o SOB and abdominal pain. Pt also c/o chest burning sensation whenwalking. Pt states his PCP said his kidney levels were elevated and recommended coming to the ER. Pt reports nausea and having increased swelling in his legs. Pt reports hx of CHF. [facility] [id number] Physician Emergency department Note* Bertha Pichardo DO - 07/23/2024 7:57 PM EST Emergency Department Encounter [facility] ED Patient: Carlo Medina : 1980 [...] [employer] Bertha Pichardo DO 07/23/242203 [facility] [id number] Physician Emergency department Note* Dayna Alvarenga PA-C - 07/23/2024 7:57 PM EST Emergency Department Encounter [facility] ED Patient: Carlo Medina : 1980 [...] states that he hadlabs drawn at his solvent plant treater the other day, and was told to [...] He had a call today from his solvent plant treater that his kidney labs were elevated, states [...] HFrEF (heart failure with reduced ejection fraction) ([facility]) 06/13/2024 Acute kidney injury superimposed on CKD ([facility]) ([facility]) 07/03/2024 At risk for obstructive sleep apnea 05/31/2024 o/p sleep study recommended during admission CHF (congestive heart failure) ([facility]) CKD (chronic kidney disease) HFrEF (heart failure with reduced ejection fraction) ([facility]) 04/28/2024 History of left bundle branch block (LBBB) 06/19/2024 Hypercholesteremia Hypertension Noncompliance 06/19/2024 NSTEMI (non-ST elevated myocardial infarction) ([facility]) 07/11/2024 Pulmonary vascular congestion 04/28/2024 Sinus tachycardia 06/19/2024 Past Surgical History: Procedure Laterality Date CARDIAC CATHETERIZATION N/A 06/17/2024 Performed by Akilah Diaz MD at [facility] Cardiac Heating Technician Social History Socioeconomic History Marital status: Single [...] 0 min Stress: Stress Concern Present (07/12/2024) [employer] - Occupational Stress Questionnaire Feeling of Stress : To some extent Social Connections: Moderately Integrated (07/12/2024) Social Connection and Isolation Panel [NHANES] Frequency of Communication with Friends and Family: Twice a week Frequency of Social Gatherings with Friends and Family: Once a week Attends Anabaptist Services: 1 to 4 times per year [...] Department Physician in the absence of a solvent plant treater. Please see Epiphany for interpretation of EKG. [...] Pichardo DO at 07/23/2024 10:40 PM EST [facility] [id number] Telephone encounter Note* Telephone Encounter - THOMAS Mi CNP - 07/23/2024 12:20 PM EST Pt is now scheduled to be seen in the [facility] CHF clinic next week 07/28/2024 at 9:30 am. I left another message asking that he hold Entresto until seen in the CHF clinic and continue lasix. [facility] [id number] Miscellaneous Notes* Telephone Encounter - THOMAS Mi CNP - 07/23/2024 12:20 PM EST Pt is now scheduled to be seen in the [facility] CHF clinic next week 07/28/2024 at 9:30 [...] treated in the heart failure clinic at [facility]. [facility], due to ongoing complexity of his care. Would recommend an expedient follow-up scheduled at the heart failure clinic at [facility], if unable to schedule, if patient calls back and is feeling poorly, would recommend he proceed to the emergency room at [facility] for expedient evaluation and treatment. documented in this [facility]01-24-2025 Telephone encounter Note* Telephone Encounter - Sarah Pierre - 07/23/2024 10:17 AM EST LM for pt that they are seeing Dr Astudillo on 07/28/2024 @ 9:30a [facility] [id number] Miscellaneous Notes* Telephone Encounter - Sarah Pierre - 07/23/2024 10:17 AM EST LM for pt that they are seeing Dr Astudillo on 07/28/2024 @ 9:30a * Telephone Encounter - Kaitlin Parker - 07/23/2024 10:01 AM EST Patient will need scheduled for a Follow up with heart failure clinic FAYE per Yulissa. Please call patient to schedule. documented in this [facility]01-24-2025 Telephone encounter Note* Telephone Encounter - Kaitlin Parker - 07/23/2024 10:01 AM EST Patient will need scheduled for a Follow up with heart failure clinic [facility]AY[facility] per Yulissa. Please call patient to schedule. [facility] [id number] Telephone encounter Note* Telephone Encounter - THOMAS [...] treated in the heart failure clinic at [facility]. It [place], due to ongoing complexity of his care. Would recommend an expedient follow-up scheduled at the heart failure clinic at [facility], if unable to schedule, if patient calls back and is feeling poorly, would recommend he proceed to the emergency room at [facility] for expedient evaluation and treatment. [facility] [id number] History of Present illness Narrative* THOMAS Mi CNP - 07/21/2024 9:30 AM EST Images from the original note were not included. [facility] Card[facility] Note DATE of SERVICE: [...] for volume overload, he was admitted to [facility] 07/11/2024-07/16/2024. He was treated for volume [...] 06/17/2024 Performed by Akilah Diaz MD at [facility] Cardiac Heating Technician Family History Family History Problem Relation Name [...] 1. Heart failure reduced EF, nonischemic cardiomyopathy, [place] Heart Association functional class III, stage C-appears [...] week. Morgan Ulloa APRN/VIKKI documented in this [facility]01-21-2025 Telephone encounter Note* Telephone Encounter - Kaitlin Gonzalez LPN - 07/20/2024 10:02 AM EST Unable to contact patient X2 [facility] [id number] Miscellaneous Notes* Telephone Encounter - Kaitlin Gonzlaez LPN - 07/20/2024 10:02 AM EST Unable to contact patient X2 * Telephone Encounter - Kaitlin Gonzalez LPN - 07/19/2024 10:46 AM EST S: Patient admitted to: [facility] 07/11/24 B: Discharged on : 07/16/24 A: Hospital follow up call initiated to discuss any medication changes, follow up appointments and discharge instructions: NSTEMI (non-ST elevated myocardial infarction) R: No contact x 1 at : [phone] documented in this [facility]01-20-2025 Telephone encounter Note* Telephone Encounter - Kaitlin Gonzalez LPN - 07/19/2024 10:46 AM EST S: Patient admitted to: [facility] 07/11/24 B: Discharged on : 07/16/24 A: Hospital follow up call initiated to discuss any medication changes, follow up appointments and discharge instructions: NSTEMI (non-ST elevated myocardial infarction) R: No contact x 1 at : [phone] [facility] SchmoozerAcmsjq76-68-4711 Telephone encounter Note* Telephone Encounter - THOMAS Valencia CNP - 07/16/2024 5:04 PM EST Late chart note. Patient already discharged from the hospital. I have seen him throughout his stay at [facility] this week. It has been a challenge [...] times throughout his stay to re-educate him. [facility] Phone: 1(127) 892-743001-17-2025 Miscellaneous Notes* Telephone Encounter - THOMAS Valencia CNP - 07/16/2024 5:04 PM EST Late chart note. Patient already discharged from the hospital. I have seen him throughout his stay at [facility] this week. It has been a challenge [...] stay to re-educate him. documented in this [facility]01-17-2025 [facility] 07-16-2024 Hospital course Narrative* Lilibeth Anguianos, THOMAS Xiao CNP - 07/16/2024 2:12 PM [...] of heart failure was recently discharged from [facility] after presenting with similar symptoms. The patient was initiallytreated in the emergency room for a non-STEMI NC secondary to elevated troponins and was placed [...] having symptomatic VT and recommended transfer to [facility] for EP evaluation and ICD. Pt [...] with sustained BT, cardiology recommnending transfer to [facility] but patient refusing , optimized on [...] Course: Patient recommended to be transferred to [facility] for possible ICD placement after symptomatic [...] Sodium restriction: Low Sodium (2 gm) 07/12/24 1650 Activity: as tolerated Recommended Outpatient Tests: Disposition: [...] Your Medications These medications were sent to [facility] [address] [place] [address] Hours: Friday to Friday 10 am to 6 pm apixaban 5 MG tablet carvedilol 25 MG tablet furosemide 20 MG tablet sacubitril-valsartan 97-103 MG tablet spironolactone 25 MG tablet Recommended Follow-up: THOMAS Mi CNP [address] [facility], [address] [facility] [address] Follow up on 07/23/2024 cardiology follow up @ 2:30. Please get your lab work completed the day prior to this visit. Complexity of Follow up: [] Moderate Complexity: follow up within 7-14 calendar days (84138) [x] Severe Complexity: follow up within 7 calendar days (36103) Follow up Testing, Pending results or Referrals [...] THOMAS Castillo CNP Division of Hospitalist Medicine [facility] 07/16/2024, 2:12 PM Cosigned by Shelli Luis MD at 07/16/2024 5:12 PM EST documented in this [facility]01-17-2025 History of Present illness Narrative* Luma Fulton Benita, [employer] - ASSOCIATE FINANCIAL PLANNER - 07/16/2024 8:12 AM EST Cardiology Progress [...] suppress the extra beats/arrhythmia. -He works at [employer]. Advised to check into needing FMLA forms [...] 07/23/2024 @ 2:30 THOMAS Valencia CNP * THOMAS Larson CNP - 07/15/2024 9:35 AM EST Hospitalist [...] of heart failure was recently discharged from [facility] after presenting with similar symptoms. The patient was initiallytreated in the emergency room for a non-STEMI NC secondary to elevated troponins and was placed [...] having symptomatic VT and recommended transfer to [facility] for EP evaluation and ICD. Pt is reluctant to proceed and feelswe are rushing him. Pt brought up life vest and explained that would only be a temporary treatment.PT was made aware of his high risk for SCD. Interval History: No overnight issues. Patient has decided he will go home with a life vest. He refuses transfer to [facility] see EP for ICD placement. Cardiology [...] with sustained BT, cardiology recommnending transfer to [facility] but patient refusing Elevated troponin - [...] VT but refuses to be transferred to [facility] - am labs, replace lytes prn [...] THOMAS Castillo CNP Division of Hospitalist Medicine [facility] * THOMAS Valencia CNP - 07/15/2024 [...] Mg is 2. -I recommend transfer to [facility] for ICD evaluation. I discussed/reviewed telemetry rhythm with EP colleague and we agree with further evaluation/ICD consideration. I explained and discussed findings andrecommendation with Mr. Medina at length. He informed me that he favors not to go to [facility] and he is reluctant about a [...] of heart failure was recently discharged from [facility] after presenting with similar symptoms. The patient was initiallytreated in the emergency room for a non-STEMI NC secondary to elevated troponins and was placed [...] having symptomatic VT and recommended transfer to [facility] for EP evaluation and ICD. Pt [...] 270 246 232 BMP: Recent Labs 07/12/24 0637 07/13/24 0252 07/14/24 0451 NA 139 135* 137 K 4.5 4.1 4.2 CL 107 105 104 CO2 20* 21* 23 BUN 31* 35* 33* CREATININE 1.79* 1.90* 1.81* GLUCOSE 104* 126* 115* CALCIUM 8.6 8.1* 8.3* ANIONGAP 12 9 10 LIVER PROFILE: Recent Labs 07/11/24202407/12/24 0637 07/14/241 AST 75* 63* 50* ALT 134* 127* [...] they discussed with the patient transferring to [facility] for advanced heart failure reevaluation and [...] THOMAS Edward CNP Division of Hospitalist Medicine [facility] Comment: Please note this report has been [...] of heart failure was recently discharged from [facility] after presenting with similar symptoms. The patient was initiallytreated in the emergency room for a non-STEMI NC secondary to elevated troponins and was placed [...] they discussed with the patient transferring to [facility] for advanced heart failure reevaluation but [...] CNP Division of Hospitalist Medicine Acute care [facility] Comment: Please note this report has [...] be monitored and followed by the diet biomedical instrument technician. * Kelly Carey APRN - VIKKI - 07/12/2024 2:12 PM EST Hospitalist Progress [...] of heart failure was recently discharged from [facility] after presenting with similar symptoms. The patient was initiallytreated in the emergency room for a non-STEMI NC secondary to elevated troponins and was placed [...] Intake/Output Summary (Last 24 hours) at 07/12/2024 141 Last data filed at 07/12/2024 0515 Gross [...] they discussed with the patient transferring to [facility] for advanced heart failure reevaluation but [...] CNP Division of Hospitalist Medicine Acute care [facility] Comment: Please note this report has been produced using speech recognition software and may contain errors related to that system including errors in grammar, punctuation, and spelling, as well as words and phrases that may be inappropriate. If there is any questions or concerns please feel free to contact the dictating provider for clarification documented in this [facility]01-16-2025 Plan of care note* Care Plan - [...] Goal: Nutritional status is improving Outcome: Progressing [facility] [id number] Miscellaneous Notes* Care Plan - Sue Schuler [...] following. Pt has refusing to go to [facility] for advanced heart failure reevaluation. Refused life vest with last admission, and is reluctant about a defibrillator. Discharge plan will be home when medically ready. manager corporate marketing to follow and assist as needed. * [...] recommend medication as well as referral to [facility] for defibrillator placement. At first he [...] Acosta RN - 07/14/2024 5:08 AM EST INSPECTOR WATCH ASSEMBLY called for pt in ventricular tachycardia in [...] discharge instructions Outcome: Progressing documented in this [facility]01-16-2025 Plan of care note* Care Plan - [...] Goal: Nutritional status is improving Outcome: Progressing [facility] HospitalVjnsrr50-70-0555 Plan of care note* Care Plan - [...] Goal: Nutritional status is improving Outcome: Progressing [facility] [id number] Note* Care Coordination - Narcisa Tavarez RN - 07/14/2024 4:27 PM EST Pt admitted to [facility] for NSTEMI. Chart reviewed. Cardiology following. Pt has refusing to go to [facility] for advanced heart failure reevaluation. Refused life vest with last admission, and is reluctant about a defibrillator. Discharge plan will be home when medically ready. manager corporate marketing to follow and assist as needed. [facility] [id number] Note* Care Coordination - Narcisa Tavarez RN - 07/14/2024 4:27 PM EST Pt admitted to PCU for NSTEMI. Chart reviewed. Cardiology following. Pt has refusing to go to [facility] for advanced heart failure reevaluation. Refused life vest with last admission, and is reluctant about a defibrillator. Discharge plan will be home when medically ready. manager corporate marketing to follow and assist as needed. [facility] [id number] NoteAtrial tachycardia Abnormal R-wave progression, late transition Probable LVH with secondary repol abnrm Prolonged QT interval Electronically Signed On 07-14-2024 09:33:32 EST by [facility] 07-14-2024 NoteAtrial tachycardia Abnormal R-wave progression, late transition Probable LVH with secondary repol abnrm Prolonged QT interval Electronically Signed On 07-14-2024 09:33:32 EST by [facility] 07-14-2024 NoteIMPRESSION: Atrial tachycardia Abnormal R-wave progression, late transition Probable LVH with secondary repol abnrm Prolonged QT interval Electronically Signed On 07-14-2024 09:33:32 EST by [facility]01-15-2025 Note* Significant Event - Sherri Jeter MD [...] recommend medication as well as referral to [facility] for defibrillator placement. At first he [...] his LFTs were elevated in the past [employer] Phone: 1(269) 408-861501-15-2025 Note* Significant Event - Sherri Jeter MD [...] recommend medication as well as referral to [facility] for defibrillator placement. At first he [...] his LFTs were elevated in the past [employer] Work Phone: 1(894) 525-584301-15-2025 Note* Rapid Response Note - Inga Acosta RN - 07/14/2024 5:08 AM EST INSPECTOR WATCH ASSEMBLY called for pt in ventricular tachycardia in [...] Continue monitoring at current level of care [facility]01-15-2025 Note* Rapid Response Note - Inga Acosta RN - 07/14/2024 5:08 AM EST INSPECTOR WATCH ASSEMBLY called for pt in ventricular tachycardia in [...] Continue monitoring at current level of care [facility] [id number] Plan of care note* Care Plan - Leatha Lancaster RN - 07/14/2024 4:06 AM EST Problem: Knowledge Deficit Goal: Patient/family/caregiver demonstrates understanding of disease process, treatment plan, medications, and discharge instructions Outcome: Not Progressing Problem: Knowledge Deficit Goal: Patient/family/caregiver demonstrates understanding of disease process, treatment plan, medications, and discharge instructions Outcome: Not Progressing [facility] [id number] Nurse Note* Leatha Lancaster RN - 07/13/2024 10:38 PM EST 11 beat wide complex beats-denied symptoms to this RN. Dr Jeter spoke at length to pt re: health risks with refusing intervention. [facility] [id number] Nurse Note* Leatha Lancaster RN - 07/13/2024 10:38 PM EST 11 beat wide complex beats-denied symptoms to this RN. Dr Jeter spoke at length to pt re: health risks with refusing intervention. * Kira Santos RN - 07/12/2024 12:44 PM EST Patient does not want to take his sodium bicarb until 2pm. documented in this [facility]01-14-2025 Note* Significant Event - Sherri Jeter MD - 07/13/2024 9:55 PM EST He developed sinus tach on tele EKG obtained 5mg of lopressor ordered He then spontaneously went back to normal rhythm before being given. He did have fluttering in his chest, all symptoms now resolved EKG of sinus tach is in epic [facility] [id number] Note* Significant Event - Sherri Jeter MD - 07/13/2024 9:55 PM EST He developed sinus tach on tele EKG obtained 5mg of lopressor ordered He then spontaneously went back to normal rhythm before being given. He did have fluttering in his chest, all symptoms now resolved EKG of sinus tach is in epic [facility] [id number] Hospital Discharge instructions* Discharge Instructions* Dia Gaitan RN - 07/13/2024 9:40 AM EST My Heart Failure Action Plan Use the below chart as a guide for daily symptom monitoring after you obtain your morning weight. My Denture Processor: [facility] Cardiology- [place] office [phone] My Diagnosis: Severe biventricular heart failure (both [...] 5 pounds in a week Call your Denture Processor!! My Diet Goal: General diet recommendations for [...] Everywhere. * Diastolic Heart Failure Discharge Instructions (Filipino) documented in this [facility]01-13-2025 Plan of care note* Care Plan - [...] plan, medications, and discharge instructions Outcome: Progressing [facility] [id number] Nurse Note* Kira Santos RN - 07/12/2024 12:44 PM EST Patient does not want to take his sodium bicarb until 2pm. [facility] [id number] Consult note* Shannan Lima MD - 07/12/2024 9:37 AM EST Associated Order(s): IP CONSULT TO CARDIOLOGY [facility] Consult Note Reason for Consult/Chief Complaint: Heart Failure Consulting MD: Dr. Samuel History of Present Illness: Carlo Medina is a 44 y.o. male admitted for heart failure. He is known to have HFrEF secondary todilated-nonischemic cardiomyopathy (BiV failure, LVEF 20%, GLS <-9%, 2+ FMR), recently discharged from [facility] for ADHF (losartan 50/lasix 40 mg [...] 06/17/2024 Performed by Akilah Diaz MD at [facility] Cardiac Heating Technician Family History: Family History Problem Relation Name [...] 5 mg bid Discussed possible need to [facility] transfer for advanced HF re-evaluation, he does not want to be transferred to [facility] at this time and agrees with above plan. Shannan Lima MD, FACC, FASE DATE of SERVICE: 07/12/2024 [facility] [id number] Consult note* Shannan Lima MD - 07/12/2024 9:37 AM EST Associated Order(s): IP CONSULT TO CARDIOLOGY [facility] Consult Note Reason for Consult/Chief Complaint: Heart Failure Consulting MD: Dr. Samuel History of Present Illness: Carlo Medina is a 44 y.o. male admitted for heart failure. He is known to have HFrEF secondary todilated-nonischemic cardiomyopathy (BiV failure, LVEF 20%, GLS <-9%, 2+ FMR), recently discharged from [facility] for ADHF (losartan 50/lasix 40 mg [...] 06/17/2024 Performed by Akilah Diaz MD at [facility] Cardiac Heating Technician Family History: Family History Problem Relation Name [...] 5 mg bid Discussed possible need to [facility] transfer for advanced HF re-evaluation, he does not want to be transferred to [facility] at this time and agrees with above plan. Shannan Lima MD, FACC, FASE DATE of SERVICE: 07/12/2024 documented in this [facility]01-13-2025 Emergency department Note* Celestino Garay RN - 07/12/2024 1:13 AM EST APTT drawn by venipuncture, previous specimen also drawn by venipuncture Pam [id number] Emergency department Note* Celestino Garay RN - 07/12/2024 1:13 AM EST APTT drawn by venipuncture, previous specimen also drawn by venipuncture * Yasmeen Petersen RN - 07/11/2024 7:22 PM EST INSPECTOR WATCH ASSEMBLY RN called for USIV * Donaldo Kenny MD - 07/11/2024 5:20 PM EST Emergency Department Encounter [facility] ED Patient: Carlo Medina : 1980 [...] contact the dictating provider for clarification.) Rayna Kneny MD Acute Care [facility] Donaldo Kenny MD 07/11/242036 * Lorie Nguyen RN - 07/11/2024 5:20 PM EST Patient arrives to er with complaints of upper abd pain. States he was here last week and had to get diuretics, he had fluid retention. Endorses similar sx and increased weight. Pt weight Friday was 170lbs, today 174lbs. Denies any SOB documented in this [facility]01-12-2025 History and physical note* Rafa Samuel MD - 07/11/2024 9:54 PM EST Attending History and Physical Admit Date: 07/11/2024 PCP: No primary care provider on file. CHIEF COMPLAINT: Shortness of breath Reason for Admission: Non-ST elevation NC History Obtained From: patient HISTORY OF PRESENT [...] 06/17/2024 Performed by Akilah Diaz MD at [facility] Cardiac Heating Technician Social History: Social History Socioeconomic History Marital [...] 10 min Stress: Stress Concern Present (07/04/2024) [employer] [place] [employer]ational [employer] - Occupational Stress Questionnaire Feeling of Stress : To some extent Social Connections: Unknown (07/04/2024) Social Connection and Isolation Panel [NHANES] Frequency of Communication with Friends and Family: Once a week Frequency of Social Gatherings with Friends and Family: Once a week Attends Anabaptist Services: 1 to 4 times per year [...] weight-based heparin with concern for non-ST elevation NC which will becontinued. Will hold off on [...] - DO NOT do CPR, intubation] [_] [DNR-FULL STACK WEB DEVELOPER - Comfort care only] [_] DNR form [...] Rafa Samuel MD Division of Hospitalist Medicine [facility] Phone: [phone] [facility]01-12-2025 History and physical note* Rafa Samuel MD - 07/11/2024 9:54 PM EST Attending History and Physical Admit Date: 07/11/2024 PCP: No primary care provider on file. CHIEF COMPLAINT: Shortness of breath Reason for Admission: Non-ST elevation NC History Obtained From: patient HISTORY OF PRESENT [...] 06/17/2024 Performed by Akilah Diaz MD at [facility] Cardiac Heating Technician Social History: Social History Socioeconomic History Marital [...] 10 min Stress: Stress Concern Present (07/04/2024) [employer] [place] - Occupational Stress Questionnaire Feeling of Stress : To some extent Social Connections: Unknown (07/04/2024) Social Connection and Isolation Panel [NHANES] Frequency of Communication with Friends and Family: Once a week Frequency of Social Gatherings with Friends and Family: Once a week Attends Anabaptist Services: 1 to 4 times per year [...] weight-based heparin with concern for non-ST elevation NC which will becontinued. Will hold off on [...] - DO NOT do CPR, intubation] [_] [DNR-FULL STACK WEB DEVELOPER - Comfort care only] [_] DNR form [...] Medicine [employer] documented in this [facility]01-12-2025 Emergency department Note* Yasmeen Petersen RN - 07/11/2024 7:22 PM EST INSPECTOR WATCH ASSEMBLY RN called for USIV [id number] Emergency department Triage note* Lorie Nguyen RN - 07/11/2024 5:20 PM EST Patient arrives to er with complaints of upper abd pain. States he was here last week and had to get diuretics, he had fluid retention. Endorses similar sx and increased weight. Pt weight Friday was 170lbs, today 174lbs. Denies any SOB [id number] Physician Emergency department Note* Donaldo Kenny MD - 07/11/2024 5:20 PM EST Emergency Department Encounter [facility] ED Patient: Carlo Medina : 1980 [...] dictating provider for clarification.) Rayna Kenny MD [employer] [facility] Donaldo Kenny MD 07/11/242036 [facility] Phone: [phone] 646-579201-08-2025 History of Present illness Narrative* Alex Zhang MD - 07/07/2024 1:00 PM EST [facility] Cardiology [facility] - [place] [address] [facility] [address] Dept: [phone] Dept Visit type: Established : 1980 Chief [...] 06/17/2024 Performed by Akilah Diaz MD at [facility] Cardiac Heating Technician Family History Family History Problem Relation Name [...] of DVT on apixaban. documented in this [facility]01-06-2025 Nurse Note* Anshul Hadley RN - 07/05/2024 [...] RN in off unit, pt taken to toll collector supervisor area, pt girlfriend present to take pt home, reviewed DC information again, verbalized understanding. VSS. No needs identified. [facility] [id number] Nurse Note* Anshul Hadley RN - 07/05/2024 [...] RN in off unit, pt taken to toll collector supervisor area, pt girlfriend present to take pt home, reviewed DC information again, verbalized understanding. VSS. No needs identified. documented in this [facility]01-06-2025 Note* Care Coordination - Stella Michel RN - 07/05/2024 10:54 AM EST Patient admitted to CTV ICU with SCHUYLER on CKD and heart failure. Chart reviewed. Patient from home, has health insurance but no PCP, but did follow up with cardiology after recent discharge. No discharge needs anticipated. [facility] [id number] Note* Care Coordination - Stella Michel RN - 07/05/2024 10:54 AM EST Patient admitted to CTV ICU with SCHUYLER on CKD and heart failure. Chart reviewed. Patient from home, has health insurance but no PCP, but did follow up with cardiology after recent discharge. No discharge needs anticipated. [facility] [id number] Miscellaneous Notes* Care Coordination - Stella Michel RN - 07/05/2024 10:54 AM EST Patient admitted to CTV ICU with SCHUYLER on CKD and heart failure. Chart reviewed. Patient from home, has health insurance but no PCP, but did follow up with cardiology after recent discharge. No discharge needs anticipated. documented in this [facility]01-06-2025 [facility] 07-05-2024 Hospital course Narrative* Shun Craig MD - 07/05/2024 10:51 AM EST Images from the original note were not included. [facility] CCU DISCHARGE SUMMARY Patient Name: Carlo [...] HTN, DVT, and HLD that presented to [facility] on 07/03/2024 from outside facility ([facility] ED) due to shortness of breath. Pt reports around 0700 he awoke with shortness of breath and abd pain. States it felt as if hecould not take a deep breath. Pt notes this has occurred in the past and felt similar to when he was admitted to [facility] in 2023. At that time he was [...] times daily Notable Medication Changes & Reasoning: [place] Simplified Medication Regimen to help with Patient [...] MINDA [facility] CV Lelo 08/30/2024 11:00 AM [facility] ECHO 1 [facility] NON-INVA [facility] Imaging 09/10/2024 11:00 AM Morgan Ulloa APRN - ASSOCIATE FINANCIAL PLANNER [facility] SBH MINDA [facility] CV Lelo Cosigned by Ab [...] Coppola MD, PhD Advanced Heart Failure Cardiology [facility]. [facility] [place] 4:35 PM 07/05/24 documented in this [facility]01-06-2025 History of Present illness Narrative* Ana HoganMarissa - 07/05/2024 10:50 AM EST Nutrition rescreen completed. Chart reviewed. Patient to be monitored and followed by the diet biomedical instrument technician. * Lucrecia Pantoja, PT - 07/05/2024 10:13 AM EST Images from the original note were not included. PHYSICAL THERAPY [facility] Initial Evaluation Name/MRN: Carlo Medina ([id number]) Evaluation Date: 07/05/2024 Date of : 1980 [...] 06/17/2024 Performed by Akilah Diaz MD at [facility] Cardiac Heating Technician Admission Diagnosis: Patient Active Problem List Diagnosis Date Noted Acute kidney injury superimposed on CKD (HCC) (HCC) 07/03/2024 Noncompliance 06/19/2024 History of left bundle branch block (LBBB) 06/19/2024 Sinus tachycardia 06/19/2024 Acute HFrEF (heart failure with reduced ejection fraction) ([facility]) 06/13/2024 Essential hypertension 06/08/2024 Elevated liver enzymes 06/08/2024 CKD (chronic kidney disease) 06/08/2024 Moderate malnutrition (CMS/HCC) ([facility]) 05/29/2024 Metabolic acidosis 05/28/2024 Pulmonary vascular congestion 04/28/2024 HFrEF (heart failure with reduced ejection fraction) ([facility]) 04/28/2024 Shortness of breath 02/28/2024 Leg swelling [...] Responsibilities: Independent Receives Help From: None Active Tool Programmer: N/A Prior Level of Function Prior Level [...] of Care supervision is transferred to a [facility] Services Physical Therapist. Goals and/or treatment plan was established in collaboration with patient/family/other representatives. * Roopa Brittney DO - 07/05/2024 5:59 AM EST Images from the original note were not included. [facility] CCU PROGRESS NOTE Patient Name: Carlo Medina : 1980 Subjective: Hospital course: Carlo Medina is a 44 y.o. male with PMH HFrEF(20% 05/2024), moderate mitral regurg, CKD 3b, HTN, DVT, and HLD that presented to [facility] on 07/03/2024 from outside facility ([facility] ED) due to shortness of breath. Pt reports around 0700 he awoke with shortness of breath and abd pain. Statesit felt as if he could not take a deep breath. Pt notes this has occurred in the past and felt similar to when he was admitted to [facility] in 2023. At that time he was [...] QT Interval 350 QTC Interval 480 P Arden 60 QRS Arden -24 T Wave Arden 89 [place] Interval 153 Impression Incomplete analysis due to [...] 23.27 kg/m . - Disposition: Transfer to [facility] / Telemetry. Cosigned by Ab Coppola MD at 07/05/2024 4:34 PM EST Associated attestation - Ab Coppola MD - 07/05/2024 4:34 PM EST I, Dr. Ab Coppola, saw and evaluated the patient on 07/05/24 in T1-112/T1 A. I personally obtained the reardon and critical portions of the history and physical exam. I reviewed the labs, imaging studies, and electronic medical record. I reviewed the Warp Picker's documentation, and discussed the patient with the Warp Picker. I agree with the Warp Picker's medical decision making and have edited the note to reflect my clinical findings and my assessment and plan. In summary, Mr. Medina is a 44 year old man with a history of moderate MR, HFrEF from NICMP, EF 20%, CKD stage III, hypertension, who prsented to [facility] with shortness of breath and abdominal [...] Henever received a central line or a [place]. Today I spoke to him about the [...] Coppola MD, PhD Advanced Heart Failure Cardiology [facility]. [facility] [place] 4:32 PM 07/05/24 * Cat Duque DO [...] from the original note were not included. [facility] CCU PROGRESS NOTE Patient Name: Carlo Medina : 1980 Subjective: Hospital course: Carlo Medina is a 44 y.o. male with PMH HFrEF(20% 05/2024), moderate mitral regurg, CKD 3b, HTN, DVT, and HLD that presented to [facility] on 07/03/2024 from outside facility ([facility] ED) due to shortness of breath. Pt reports around 0700 he awoke with shortness of breath and abd pain. Statesit felt as if he could not take a deep breath. Pt notes this has occurred in the past and felt similar to when he was admitted to [facility] in 2023. At that time he was [...] Intake/Output Summary (Last 24 hours) at 07/04/2024 0662 Last data filed at 07/04/2024 0530 Gross [...] QT Interval 350 QTC Interval 480 P Arden 60 QRS Arden -24 T Wave [place] 89 [place] Interval 153 Impression Incomplete analysis due to [...] plan. Please see H&P. documented in this [facility]01-06-2025 Hospital Discharge instructions* Discharge Instructions* Dia Gaitan RN - 07/05/2024 9:17 AM EST My Heart Failure Action Plan Use the below chart as a guide for daily symptom monitoring after you obtain your morning weight. My Denture Processor: Dr. Leatha Murrell [facility] [phone] My Diagnosis: Heart failure with reduced ejection [...] 5 pounds in a week Call your Denture Processor!! My Diet Goal: General diet recommendations for [...] pain or cannot breathe. documented in this [facility]01-04-2025 History and physical note* Ofelia Villalobos MD - 07/03/2024 7:54 PM EST Images from the original note were not included. [facility] [place] [facility] CCU HISTORY & PHYSICAL Patient Name: Carlo Medina : 1980 Date of Admission: 07/03/2024 8:56 AM Established solvent plant treater: Dr. Khan Subjective: Chief Complaint: Shortness of breath History of Present Illness: Carlo Medina is a 44 y.o. male with PMH HFrEF(20% 05/2024), moderate mitral regurg, CKD 3b, HTN, DVT, and HLD that presented to [facility] on 07/03/2024 from outside facility ([facility] ED) due to shortness of breath. Pt reports around 0700 he awoke with shortness of breath and abd pain. States it felt as if hecould not take a deep breath. Pt notes this has occurred in the past and felt similar to when he was admitted to [facility] in 2023. At that time he was [...] 06/17/2024 Performed by Akilah Diaz MD at [facility] Cardiac Heating Technician Family History: Family History Problem Relation Name [...] up on Lasix 20mg PO 2 days COMSEC MANAGER. Pt appears volume up on exam. JVD [...] kg/m . - Disposition: Admit to CCU. Cristine, Dr. Villalobos, saw and evaluated the patient [...] HTN, DVT, and HLD that presented to [facility] on 07/03/2024 from outside facility ([facility] ED) due toshortness of breath. Patient is [...] secondary to impairment of the cardiovascular system. [facility] [id number] [facility]01-04-2025 History and physical note* Ofelia Villalobos MD - 07/03/2024 7:54 PM EST Images from the original note were not included. [facility] [place] [facility] CCU HISTORY & PHYSICAL Patient Name: Carlo Medina : 1980 Date of Admission: 07/03/2024 8:56 AM Established solvent plant treater: Dr. Khan Subjective: Chief Complaint: Shortness of breath History of Present Illness: Carlo Medina is a 44 y.o. male with PMH HFrEF(20% 05/2024), moderate mitral regurg, CKD 3b, HTN, DVT, and HLD that presented to [facility] on 07/03/2024 from outside facility ([facility] ED) due to shortness of breath. Pt reports around 0700 he awoke with shortness of breath and abd pain. States it felt as if hecould not take a deep breath. Pt notes this has occurred in the past and felt similar to when he was admitted to [facility] in 2023. At that time he was [...] 06/17/2024 Performed by Akilah Diaz MD at [facility] Cardiac Heating Technician Family History: Family History Problem Relation Name [...] up on Lasix 20mg PO 2 days COMSEC MANAGER. Pt appears volume up on exam. JVD [...] HTN, DVT, and HLD that presented to [facility] on 07/03/2024 from outside facility ([facility] ED) due toshortness of breath. Patient is [...] of the cardiovascular system. documented in this [facility]01-04-2025 Emergency department Note* Shanti Rodriguez RN - 07/03/2024 6:23 PM EST [facility] arrived to transport pt to [facility] . Pt ambulated to [facility] without difficulty. Pt A&O, calm, and cooperative, no signs of distress noted. VS stable. Resp even, non labored. [facility] [id number] Emergency department Note* Shanti Rodriguez RN - 07/03/2024 6:23 PM EST Attempted to call report to T1 at [facility] no answer. [facility] [id number] Emergency department Note* Shanti Rodriguez RN - 07/03/2024 6:23 PM EST [facility] arrived to transport pt to [facility] . Pt ambulated to stretcher without difficulty. Pt A&O, calm, and cooperative, no signs of distress noted. VS stable. Resp even, non labored. * Shanti Rodriguez RN - 07/03/2024 6:23 PM EST Attempted to call report to T1 at [facility] no answer. * Yasmeen Petersen RN - [...] shob started last pm. 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 HISTORY OF PRESENT ILLNESS (Location/Symptom, Timing/Onset, [...] 06/17/2024 Performed by Akilah Diaz MD at [facility] Cardiac Heating Technician CURRENT MEDICATIONS Current Discharge Medication List CONTINUE [...] min Stress: No Stress Concern Present (04/28/2024) [employer] - Occupational Stress Questionnaire Feeling of Stress : Not at all Recent Concern: Stress - Stress Concern Present (02/28/2024) [employer] [place] Occup[employer] - Occupational Stress Questionnaire Feeling of Stress : To some extent Social Connections: Unknown (04/28/2024) Social Connection and Isolation Panel [NHANES] Frequency of Communication with Friends and Family: Once a week Frequency of Social Gatherings with Friends and Family: Once a week Attends Anabaptist Services: Patient unable to answer Active Member [...] Culture. Procedure Abnormality Status --------- ------ Complete Urinalysis[[id number]] Abnormal Final result Please view results for [...] and DIFFERENTIAL DIAGNOSIS/MDM: Vitals: Vitals: 07/03/24 1930 01/04194907/03/24199907/03/242014 BP: 113/91 111/80 103/88 112/97 BP Location: [...] medical records reviewed, external records reviewed from [facility] cardiology Dr. Zhang on 07/01/2024 [...] 06/13/2024 and discharged on 06/21/2024 here at [facility] with hospital course as follows: Hospital Course: patient with acute HFrEF exacerbation and worsening renal function, with IV diuresis, Cardiology and nephrology following. Improvement in volume status, however now worse renal function, nephrology on consult. Repeat echo now with LVEF of 20%, cardiology following. Planned for LHCand RHC on 06/17/24, ruled out coronary disease, deemed non-ischemic cardiomyopathy. Cardiology recommending possible transfer to [facility] to be monitored in heart failure ICU, however patient refused transfer to [facility]. Resumed on Eliquis for newly acute [...] GOC discussion as well. He is on GDMTper [...] Dr. Mcguire here he recommended HLU at [facility]. I discussed with medical receptionist biller and they accepted to HLU under Dr. [...] 07/03/2024 8:50 AM EST Emergency Department Encounter [facility] ED Patient: Carlo Medina : 1980 Date of Evaluation: 07/03/2024 ED Supervising Physician: Kishore Mudrakola, DO I personally evaluated Carlo Medina and [...] shob started last pm. 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 documented in this encounterSumma [id number] Emergency department Note* Yasmeen Petersen RN - 07/03/2024 3:17 PM EST Pt given bedside table to food tray [facility]01-04-2025 Emergency department Note* Shanti Rodriguez RN - 07/03/2024 1:22 PM EST Pt given urinal asked to void if able. Pt states he does not have to urinate at this time. [facility]01-04-2025 Note1. Small ascites, progressed from the prior [...] MD Electronically Signed Date/Time: 07/03/2024 10:38 AM [facility] RADIOLOGY [id number] Emergency department Note* Jyotsna Wilcox RN - 07/03/2024 10:02 AM EST Patient refusing to let this RN attempt IV without ultra sound. Patient states I dont want you to poke me without it [facility]01-04-2025 Emergency department Note* Shanti Rodriguez RN - 07/03/2024 9:52 AM EST This RN attempted IV stick multiple times and was unsuccessful. Charge nurse notified. [facility]01-04-2025 Emergency department Note* Judie Cortes RN - 07/03/2024 9:16 AM EST Patient requesting to be placed on oxygen. Patients oxygen saturation was 98% on room air at time of triage. Patient is now 95% on room air. Patient advised that he does not require oxygen at this time. [id number] Emergency department Triage note* Judie Cortes RN - 07/03/2024 8:50 AM EST Patient reports he has a history of heart disease and stage 3 kidney disease. Patient reports shob started last pm. 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 [id number] Physician Emergency department Note* Meek Dover PA-C [...] shob started last pm. 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 HISTORY OF PRESENT ILLNESS (Location/Symptom, Timing/Onset, [...] 06/17/2024 Performed by Akilah Diaz MD at [facility] Cardiac Heating Technician CURRENT MEDICATIONS Current Discharge Medication List CONTINUE [...] min Stress: No Stress Concern Present (04/28/2024) [employer] - Occupational Stress Questionnaire Feeling of Stress : Not at all Recent Concern: Stress - Stress Concern Present (02/28/2024) [employer] [place] - Occupational Stress Questionnaire Feeling of Stress : To some extent Social Connections: Unknown (04/28/2024) Social Connection and Isolation Panel [NHANES] Frequency of Communication with Friends and Family: Once a week Frequency of Social Gatherings with Friends and Family: Once a week Attends Anabaptist Services: Patient unable to answer Active Member [...] Culture. Procedure Abnormality Status --------- ------ Complete Urinalysis[[id number]] Abnormal Final result Please view results for [...] medical records reviewed, external records reviewed from [facility] cardiology Dr. Zhang on 07/01/2024 [...] 06/13/2024 and discharged on 06/21/2024 here at [facility] with hospital course as follows: Hospital Course: patient with acute HFrEF exacerbation and worsening renal function, with IV diuresis, Cardiology and nephrology following. Improvement in volume status, however now worse renal function, nephrology on consult. Repeat echo now with LVEF of 20%, cardiology following. Planned for LHCand RHC on 06/17/24, ruled out coronary disease, deemed non-ischemic cardiomyopathy. Cardiology recommending possible transfer to [facility] to be monitored in heart failure ICU, however patient refused transfer to [facility]. Resumed on Eliquis for newly acute [...] GOC discussion as well. [facility] as tolerated. Renal [...] Dr. Mcguire here he recommended HLU at [facility]. I discussed with medical receptionist biller and they accepted to HLU under Dr. [...] Alonso DO at 07/04/2024 7:10 AM EST [facility] [id number] Physician Emergency department Note* Kishore Alonso DO - 07/03/2024 8:50 AM EST Emergency Department Encounter [facility] ED Patient: Carlo Medina : 1980 [...] [employer] Kishore Alonso DO 07/03/24 1218 [facility] Work Phone: 1(247) 266-933401-02-2025 History of Present illness Narrative* Alex Zhang MD - 07/01/2024 10:45 AM EST [facility] Cardiology [facility] CARDIOLOGY - [address] [facility] [address] Dept: [phone] Dept Visit type: Established : 1980 Chief [...] 06/17/2024 Performed by Akilah Diaz MD at [facility] Cardiac Heating Technician Family History Family History Problem Relation Name [...] kidney disease stage IIIb. documented in this [facility]01-02-2025 History of Present illness Narrative* Alex Zhang MD - 07/01/2024 10:45 AM EST [facility] Medical [facility] Cardiology [facility] CARDIOLOGY - [place] [address] [facility] [address] [facility] [address] Dept: [phone] Dept Visit type: Established : 1980 Chief [...] 06/17/2024 Performed by Akilah Diaz MD at [facility] Cardiac Heating Technician Family History Family History Problem Relation Name [...] kidney disease stage IIIb. documented in this [facility]01-02-2025 History of Present illness Narrative* Alex Zhang MD - 07/01/2024 10:45 AM EST [facility] Cardiology [facility] CARDIOLOG[facility] - [address] [facility] [address] Dept: [phone] Dept Visit type: Established : 1980 Chief [...] 06/17/2024 Performed by Akilah Diaz MD at [facility] Cardiac Heating Technician Family History Family History Problem Relation Name [...] kidney disease stage IIIb. documented in this [facility]01-02-2025 Miscellaneous Notes* Addendum Note - THOMAS Alvarez CNP - 07/01/2024 10:45 AM ESTAddended by: SEPIDEH TOWNSEND on: 08/20/2024 04:37 PM Modules accepted: Orders documented in this [facility]01-02-2025 Note* Addendum Note - THOMAS Alvarez CNP - 07/01/2024 10:45 AM ESTAddended by: SEPIDEH TOWNSEND on: 08/20/2024 04:37 PM Modules accepted: Orders [facility] Phone: 1(640) 872-170701-02-2025 Note* Addendum Note - THOMAS Alvarez CNP - 07/01/2024 10:45 AM ESTAddended by: SEPIDEH TOWNSEND on: 08/20/2024 04:37 PM Modules accepted: Orders [facility] Phone: 1(370) 105-499712-26-2024 Miscellaneous Notes* Telephone Encounter - Kaitlin Gonzalez [...] recognize or compliment: no documented in this [facility]12-26-2024 Telephone encounter Note* Telephone Encounter - Kaitlin [...] would like to recognize or compliment: no [id number] Telephone encounter Note* Telephone Encounter - Kaitlin Gonzalez LPN - 06/22/2024 10:17 AM EST S: Patient admitted to: [facility] 06/13/24 B: Discharged on : 06/21/24 A: Hospital follow up call initiated to discuss any medication changes, follow up appointments and discharge instructions: Acute HFrEF (heart failure with reduced ejection fraction) R: No contact x 1 at : [phone] [id number] Miscellaneous Notes* Telephone Encounter - Kaitlin Gonzalez LPN - 06/22/2024 10:17 AM EST S: Patient admitted to: [facility] 06/13/24 B: Discharged on : 06/21/24 A: Hospital follow up call initiated to discuss any medication changes, follow up appointments and discharge instructions: Acute HFrEF (heart failure with reduced ejection fraction) R: No contact x 1 at : [phone] documented in this [facility]12-23-2024 Nurse Note* Chloé Chilel RN - 06/21/2024 2:52 PM EST Gave patient discharge instructions. Patient verbalized understanding. Discussed the importance of taking the medications as prescribed. Importance of following up with Dr. Burnette and Dr Mccullough. IV discontinued. Meds to beds delivered scripts. [facility] [id number] Nurse Note* Chloé Chilel RN - 06/21/2024 [...] tele monitor. Dr. Mcguire and Gaby Marcano AUTOMAT WATCHER forcardiology notified. No new orders at this [...] call light in reach. documented in this [facility]12-23-2024 [facility] 06-21-2024 Hospital course Narrative* Sergei Mcguire [...] non-ischemic cardiomyopathy. Cardiology recommending possible transfer to [facility] to be monitored in heart failure ICU, however patient refused transfer to [facility]. Resumed on Eliquis for newly acute [...] Your Medications These medications were sent to [facility] Retail [facility] [address] [facility] [address] Hours: Friday to Friday 10 am to 6 pm apixaban 5 MG tablet hydrALAZINE 25 MG tablet isosorbide dinitrate 20 MG tablet pantoprazole 40 MG EC tablet Recommended Follow-up: Cardiology, nephrology, PCP outpatient in 1-2 weeks. @READMISSIONRISK@ Complexity of Follow up: [] Moderate Complexity: follow up within 7-14 calendar days (38610) [x] Severe Complexity: follow up within 7 calendar days (53350) Follow up Testing, Pending results or Referrals [...] frame. Signed: Sergei Mcguire DO [facility] Medical Services/[facility] 06/21/2024, 1:54 PM Total time Spent on Discharge: 32 minutes documented in this [facility]12-23-2024 History of Present illness Narrative* Jia Santoro MD - 06/21/2024 1:44 PM EST Telemetry reviewed. No evidence of VT seen on telemetry strips sent by RN. P waves precede each QRScomplex. Patient with known intermittent LBBB. Potassium and Magnesium normal. Continue with current management. Jia Santoro MD Department of Cardiovascular Disease [facility] [place] 1:46 PM 06/21/24 * Maritza Linn, [employer] - ASSOCIATE FINANCIAL PLANNER - 06/21/2024 11:47 AM EST [facility] Progress Note [...] Lying Pulse: 53 56 52 101 Resp: Temp: 36.5 C (97.7 F) 36.4 C [...] mg daily -No s/s of KELSIE from [facility], now outside of window for potential [...] any questions or concerns. Maritza Linn APRN, ASSOCIATE FINANCIAL PLANNER [facility], [facility] [phone] Cosigned by Anand Mccullough MD at 06/21/2024 1:47 PM EST Associated attestation - Anand Mccullough MD - 06/21/2024 1:47 PM EST I have reviewed the above assessment and plan with the AUTOMAT WATCHER. I agree with above note. Lasix per cardiology. Cr stable. * Sergei Mcguire, DO - 06/21/2024 10:04 AM EST Hospitalist Progress Note 06/21/20246992358-2923: Please page me [phone]) for patient care issues. [phone]: Please page [facility] night Hospitalist for any [...] per cardiology. Cardiology recommending possible transfer to [facility] to be monitored in heart failure [...] DO Division of Hospitalist Medicine Inpatient Medical Services/[facility] PAGER: Epic chat * Gaby Marcano APRN - VIKKI - 06/21/2024 8:17 AM EST [facility] [place] [facility] Cardiology /Electrophysiology Progress Note HPI / [...] he was recommended admission tot HLU/HF-ICU at [facility], however refused transfer for. Possible etiologies [...] is also not willing to transfer to [facility] for a higher level of care. [...] -He was recommended transfer to HLU/HF-ICU at [facility] for more aggressive management of his [...] low he would be a candidate for MUSIC COORDINATOR-D - again after multiple hospitalizations and multiple [...] above, he refuses transfer to HLU/HF-ICU at [facility] for more aggressive management -We have [...] past 168 hrs: Weight Weight Method 06/20/24 193 167 lb 11.2 oz (76.1 kg) -- [...] Date Of Service 06/21/2024 * Sergei Mcguire, DO - 06/20/2024 12:44 PM EST Hospitalist Progress Note 06/20/2024 [phone]: Please page ga ([phone]) for patient care issues. [phone]: Please page [facility] Hospitalist for any issues. Subjective: Admit Date: [...] per cardiology. Cardiology recommending possible transfer to [facility] to be monitored in heart failure [...] DO Division of Hospitalist Medicine Inpatient Medical Services/[facility] PAGER: Epic chat * Angel Luis Lassiter MD - 06/20/2024 10:53 AM EST [facility] [place] [facility] Cardiology Progress Note HPI / Interval [...] Morales discussed with him possible transfer to [facility] for more invasive monitoring for his heart failure, but as previously, he does not want to do this. Also talked about hisneed eventually for an ICD assessment, and he may consider this in the future but currently did notwant to go to [facility] for this evaluation either. Renal also thought [...] Anticoagulation: OAC for DVT (mgt per primary) ICD/MUSIC COORDINATOR: Candidate for MUSIC COORDINATOR-D if LBBB became chronic but would need [...] would recommend outpt genetic testing for dilated MANAGER EN[facility]IRONMENT[facility] AFFAIRS. - He is still dyspneic with light exertion but does not wish transfer to [facility] given his very borderline compensated heart failure [...] could opt for Adv HF evaluation at [facility] which is preferred. He could be Dc'd to an appropriate locationfor his level of function, but unclear if he could rehab and become stronger given low cardiac outpt. Very high risk for readmission. 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 There may be an opportunity for improved [...] he does not want to go to [facility]. Will try to get him managed medically [...] Date Of Service 06/20/2024 * Maritza Linn, [employer] D[employer]ER - ASSOCIATE FINANCIAL PLANNER - 06/20/2024 10:13 AM EST [facility] [...] KELSIE and a 0.12% chance of needing INSPECTOR WATCH ASSEMBLY -Ok for prn diuresis for s/s of [...] any questions or concerns. Maritza Linn APRN, ASSOCIATE FINANCIAL PLANNER [facility], [facility] [phone] Cosigned by Saul Briones MD at 06/20/2024 3:09 PM EST Associated attestation - Saul Briones MD - 06/20/2024 3:09 PM EST Notes reviewed and plan discussed with the AUTOMAT WATCHER. Agree with above note except Any variance is noted below. Saul Briones MD [facility] [phone] * Sergei Mcguire DO - 06/19/2024 11:53 AM EST Hospitalist Progress Note 06/19/2024 [phone]: Please page me ([phone]) for patient care issues. [phone]: Please page [facility] night Hospitalist for any [...] per cardiology. Cardiology recommending possible transfer to [facility] to be monitored in heart failure [...] DO Division of Hospitalist Medicine Inpatient Medical Services/[facility] PAGER: Epic chat * Maritza Cj Andujarconchita, [employer]ER - ASSOCIATE FINANCIAL PLANNER - 06/19/2024 9:52 AM EST [facility] [...] KELSIE and a 0.12% chance of needing INSPECTOR WATCH ASSEMBLY -Ok for prn diuresis for s/s of [...] questions or concerns. Maritza Linn APRN, CNP [facility], [facility] [phone] Cosigned by Saul Briones MD at 06/19/2024 11:51 AM EST Associated attestation - Saul Briones MD - 06/19/2024 11:51 AM EST Notes reviewed and plan discussed with the balance assembler. Agree with above note except Any variance is noted below. Saul Briones MD [facility] [phone] * Angel Luis Lassiter MD - 06/19/2024 6:52 AM EST [facility] [place] [facility] Cardiology Progress Note HPI / Interval [...] Morales discussed with him possible transfer to [facility] for more invasive monitoring for his heart failure, but as previously, he does not want to do this. Also talked about hisneed eventually for an ICD assessment, and he may consider this in the future but currently did notwant to go to [facility] for this evaluation either. Renal also thought [...] Anticoagulation: OAC for DVT (mgt per primary) ICD/MUSIC COORDINATOR: Candidate for MUSIC COORDINATOR-D if LBBB became chronic but would need to agree to [facility] evaluation as outpt Last CPET: none [...] would recommend outpt genetic testing for dilated [facility]. - Rec ambulate in the burgos, if he still dyspneic with minimal exertion will continue to offer transfer to [facility] given his very borderline compensated heart failure [...] could opt for Adv HF evaluation at [facility] which is preferred. He could be Dc'd to an appropriate locationfor his level of function, but unclear if he could rehab and become stronger given low cardiac outpt. Very high risk for readmission. 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 There may be an opportunity for improved [...] he does not want to go to [facility]. Will try to get him managed medically [...] declining labs. Cardiology recommending possible transfer to [facility] to be monitored in heart failure ICU, however patient is refusing. LHC and RHC ruled out coronary disease, deemed non-ischemic cardiomyopathy. Pt reports jojo meals and requests to have Ensure discontinued at this time. Estimated Daily Nutrient Needs: Energy Requirements Based On: Kcal/kg Weight Used for Energy Requirements: Admission Weight for Energy Calculation (kg): 80 kg Total Energy Requirements (kcals/day): 2854-2327 kcals (25-30 kcals/kg) Weight Used for Protein [...] 186#-03/07/24, 191#-04/28/24) % Weight Change (Calculated): -14.5 [place] Body Weight (lbs) (Calculated): 184 lbs [place] Body Weight (Kg) (Calculated): 84 kg % [place] Body Weight (Calculated): 95.2 % BMI (kg/m2) [...] Continue current diet Tahmina Berg RD Contact: *[phone] or via Secure Chat * Sergei Mcguire DO - 06/18/2024 11:10 AM EST Hospitalist Progress Note 06/18/2024 [phone]: Please page me ([phone]) for patient care issues. [phone]: Please page [facility] night Hospitalist for any [...] per cardiology. Cardiology recommending possible transfer to [facility] to be monitored in heart failure [...] DO Division of Hospitalist Medicine Inpatient Medical Services/[facility] PAGER: CR2 chat * Maritza Linn, THOMAS - ASSOCIATE FINANCIAL PLANNER - 06/18/2024 10:46 AM EST [facility] Subjective/ 44 y.o. [...] labs again this morning, now agreeable and INSPECTOR WATCH ASSEMBLY RN at bedside for US collection -Last labs were near bl~1.5-1.7, non-oliguric, BP stable -C/w holding diuresis through today until labs can be interpreted -Jorge Alberto score is 7 points, c/w a 14% chance of KELSIE and a 0.12% chance of needing INSPECTOR WATCH ASSEMBLY -Again, counseled on importance of allowing labs [...] any questions or concerns. Maritza Linn APRN, ASSOCIATE FINANCIAL PLANNER [facility], [facility] [phone] Cosigned by Anand Mccullough MD at 06/18/2024 4:06 PM EST Associated attestation - Anand Mccullough MD - 06/18/2024 4:06 PM EST SCHUYLER/ATN, possibly 2/2 volume depletion from over-diuresis vs CRS (N17.0) Acute on chronic HFrEF exacerbation (I50.23) Met acidosis 87.21 Z91.1 Still euvolemic. Cr stable. Add Torsemide 10mg qday. * Angel Luis Morales MD - 06/18/2024 10:46 AM EST [facility] Cardiology /Electrophysiology Progress Note HPI / Interval [...] did discuss with him possible transfer to [facility] for more invasive monitoring for his heart failure, but as previously, he does not want to do this. We also talked about his need eventually for an ICD assessment, and he may consider this in the future but currently does not want to go to [facility] for this evaluation either. of 5 recent [...] minimal exertion willneed to rediscuss transfer to [facility] given his very borderline compensated heart failure [...] he does not want to go to [facility]. Will try to get him managed medically [...] MD Date Of Service 06/18/2024 * Maritza Linn, LONG GOODS DRIER - [facility] - 06/17/2024 1:34 PM EST [facility] [...] Pulse: 107 104 56 56 Resp: 26 Temp: (!) 35.8 C (96.5 F) TempSrc: [...] KELSIE and a 0.12% chance of needing INSPECTOR WATCH ASSEMBLY -Agree with post-procedure IVF as ordered per [...] with any questions or concerns. Maritza Linn, LONG [employer] DRIER, ASSOCIATE FINANCIAL PLANNER [facility], [facility] [phone] Cosigned by Anand Mccullough MD at 06/17/2024 [...] Urbano CNP - 06/17/2024 1:22 PM EST [facility] [place] [facility] Cardiology /Electrophysiology Progress Note HPI / [...] 2200. [facility] [...] 1:15 PM EST Hospitalist Progress Note 06/17/2024 [phone]: Please page me ([phone]) for patient care issues. [phone]: Please page [facility] Hospitalist for any issues. Subjective: Admit Date: [...] RDW 13.6 PLT 195 BMP: Recent Labs 06/15/2441306/16/24 0918 NA 144 140 K 4.1 3.9 [...] DO Division of Hospitalist Medicine Inpatient Medical Services/[facility] PAGER: Epic chat * Sergei Mcguire DO - 06/16/2024 3:41 PM EST Hospitalist Progress Note 06/16/2024 [phone]: Please page ga ([phone]) for patient care issues. [phone]: Please page [facility] Hospitalist for any issues. Subjective: Admit Date: [...] DO Division of Hospitalist Medicine Inpatient Medical Services/[facility] PAGER: Epic chat * Maritza Linn APRN - ASSOCIATE FINANCIAL PLANNER - 06/16/2024 11:42 AM EST [facility] Progress Note Subjective/ 44 y.o. [...] any questions or concerns. Maritza Linn APRN, ASSOCIATE FINANCIAL PLANNER [facility], [employer] [phone] Cosigned by Anand Mccullough MD at 06/16/2024 [...] Not renal in origin * Luma Joy, LONG GOODS DRIER - ASSOCIATE FINANCIAL PLANNER - 06/16/2024 10:32 AM EST [facility] Cardiology /Electrophysiology Progress Note HPI / Interval [...] Recent Labs 06/13/24 1459 06/13/245 06/14/24 0342 06/15/24 0414 06/16/24 0918 NA [...] 5:24 PM EST Hospitalist Progress Note 06/15/2024 [phone]: Please page me ([phone]) for patient care issues. [phone]: Please page [facility] night Hospitalist for any [...] Significant Other Sergei Mcguire DO [facility] In[facility] Medical Services/[facility] PAGER: Epic chat * Angel Luis Morales MD - 06/15/2024 4:08 PM EST [facility] Cardiology /Electrophysiology Progress Note HPI / Interval [...] Historically, he has refused to go to [facility] when this was offered to him 2 [...] Lying Pulse: 57 103 111 Resp: 16 18 Temp: 36.3 C (97.3 F) [...] Severe Extremities (Pt here for HF exacerbation) Doctor Of Osteopathy Strength: Not Performed Nutrition Assessment: Pt is a 44 y/o male admitted to [facility] with CC of SOB, leg swelling for [...] >1 month. During a previous admit to [facility], pt had trialed Ensure, but felt like [...] (kg): 80 kg Total Energy Requirements (kcals/day): 3620-5581 kcals (25-30 kcals/kg) Weight Used for Protein [...] 186#-03/07/24, 191#-04/28/24) % Weight Change (Calculated): -14.5 [place] Body Weight (lbs) (Calculated): 184 lbs [place] Body Weight (Kg) (Calculated): 84 kg % [place] Body Weight (Calculated): 95.2 % BMI (kg/m2) [...] Oral Nutrition Supplement Dudley Oropeza RD Contact: *[phone] or via Secure Chat * Serg Celaya MD - 06/14/2024 9:58 AM EST Hospitalist Progress Note 06/14/2024 [phone]: Please page me ([phone]) for patient care issues. [phone]: Please page [facility] Hospitalist for any issues. Subjective: Admit Date: [...] Adult diet Regular; Low Sodium (2 gm) @[id number]@ 24HR INTAKE/OUTPUT: Intake/Output Summary (Last 24 hours) [...] MD Division of Hospitalist Medicine Inpatient Medical Services/[facility] PAGER: Epic chat documented in this [facility]12-23-2024 Nurse Note* Tamiko Live RN - 06/21/2024 1:[address] Mcguire and Gaby Marcano APRN from cardiology regarding 20 beat run of VT through message. ] [facility] [id number] Note* Care Coordination - Brittany Alston RN [...] Length of Stay (Days): 8 GMLOS: 5.4 [facility] [id number] Note* Care Coordination - Brittany Alston RN [...] Length of Stay (Days): 8 GMLOS: 5.4 [facility] [id number] Miscellaneous Notes* Care Coordination - Brittany Alston [...] Spoke with Marcus Delvalle RN from laborer high density press. Pt refused RHC/LHC yesterday, but was agreeable [...] was able to communicated with Christian from [employer]. Financial screening completed with patient this afternoon. Patient was over income for Medicaid program. [employer] referred patient to Hospital Care Assurance Program; application completed and submitted. [facility]CAP will assist with current [facility] to [...] or improved Outcome: Progressing documented in this [facility]12-22-2024 Plan of care note* Care Plan - King Jackson RN - 06/20/2024 5:46 PM EST Problem: Problem Interventions Goal: Promote nutritional intake Outcome: Progressing Problem: Knowledge Deficit Goal: Patient/family/caregiver demonstrates understanding of disease process, treatment plan, medications, and discharge instructions Outcome: Progressing Problem: Potential for Compromised Skin Integrity Goal: Nutritional status is improving Outcome: Progressing [facility] [id number] Consult note* Verona Shah APRN - VIKKI [...] refusing appropriate care such as transfer to [facility] - introduced myself and service, why [...] really in contact with her, education of [place] law should he not be able to make medical decisions, states he would want GF to make medical decisions, will place social insurance specialist consult to complete this hopefully before dc [...] the other day. [facility]eds AICD[facility]life vest[facility], prompting palliative [...] detailed in the note above. Verona Shah, LONG [employer] DRIER - ASSOCIATE FINANCIAL PLANNER Time-based code 42776 for 16-45 minutes. Add-on code 76592 at 46 minutes and each additional 30 minutes. Goals of care:Continue Current Management Functional Assessment: PPS: 90% Advance Directives: Full Code Surrogate: Significant Other Prognosis: [id number] than one year--if does not pursue cardiology recommendations for care Spiritual assessment: No spiritual distress identified Bereavement and grief: Grief Issues Not Identified Past Medical History: Diagnosis Date CHF (congestive heart failure) (HCC) CKD (chronic kidney disease) Hypercholesteremia Hypertension Past Surgical History: Procedure Laterality Date CARDIAC CATHETERIZATION N/A 06/17/2024 Performed by Akilah Diaz MD at [facility] Cardiac Heating Technician Family History Problem Relation Name Age of Onset Heart disease Father Heart disease Brother Unable to obtain family history due to N/A- family history available No Known Allergies Review of Systems ROS: See palliative care ROS/ESAS below; All other systems were reviewed and are negative. Spencer Symptom Assessment Score Spencer Score Pain Score 0 Tiredness Score 0 [...] other day. Needs AICD/life vest, transfer to [facility] but refusing this, prompting palliative care consult for goals of care. If does not adhere to cardiology recommendations for life-saving and prolonging therapies, life expectancy limited to 6 months or less should illness run it's natural course Transition Note Initiated: yes. Cosigned by Hortencia Hayward MD at 06/20/2024 4:55 PM EST [facility] Phone: [phone] 475-846912-22-2024 Consult note* THOMAS Melvin CNP - 06/20/2024 [...] refusing appropriate care such as transfer to [facility] - introduced myself and service, why [...] really in contact with her, education of [place] law should he not be able to make medical decisions, states he would want GF to make medical decisions, will place social insurance specialist consult to complete this hopefully before dc [...] the other day. [facility]life vest[facility], prompting palliative [...] detailed in the note above. Verona Shah, LONG GOODS DRIER - ASSOCIATE FINANCIAL PLANNER Time-based code 85595 for 16-45 minutes. Add-on code 49066 at 46 minutes and each additional 30 minutes. Goals of care:Continue Current Management Functional Assessment: PPS: 90% Advance Directives: Full Code Surrogate: Significant Other Prognosis: ralrla-jx-tlpk than one year--if does not pursue cardiology recommendations for care Spiritual assessment: No spiritual distress identified Bereavement and grief: Grief Issues Not Identified Past Medical History: Diagnosis Date CHF (congestive heart failure) (HCC) CKD (chronic kidney disease) Hypercholesteremia Hypertension Past Surgical History: Procedure Laterality Date CARDIAC CATHETERIZATION N/A 06/17/2024 Performed by Akilah Diaz MD at [facility] Cardiac Heating Technician Family History Problem Relation Name Age of Onset Heart disease Father Heart disease Brother Unable to obtain family history due to N/A- family history available No Known Allergies Review of Systems ROS: See palliative care ROS/ESAS below; All other systems were reviewed and are negative. Spencer Symptom Assessment Score Spencer Score Pain Score 0 Tiredness Score 0 [...] Assessed by: patient and provider. Social history: [place] status: no Marital status: single Living status: [...] other day. Needs AICD/life vest, transfer to [facility] but refusing this, prompting palliative [...] AM ESTAssociated Order(s): IP CONSULT TO NEPHROLOGY [facility] Consult Note Reason for Consult/Chief Complaint: SCHUYLER/CKD with CHF exacerbation Consulting MD: Dr. Sergei Mcguire [facility] Outpatient Refinery Operator Vapor Recovery Unit: N/A History of Present Illness: Carlo is [...] Intake/Output Summary (Last 24 hours) at 06/15/2024 0932 Last data filed at 06/15/2024 0523 Gross [...] questions or concerns. Maritza Linn APRN, VIKKI [facility], [facility] [phone] office Cosigned by Anand Mccullough MD at [...] AM ESTAssociated Order(s): IP CONSULT TO CARDIOLOGY [facility] [place] [facility] Cardiology /Electrophysiology Consult Note Reason for Consult/Chief Complaint: Dyspnea, edema Consulting provider: Andrew Established solvent plant treater: Leatha History of Present Illness: Carlo Medina [...] DATE of SERVICE: 06/14/2024 documented in this [facility]12-21-2024 Plan of care note* Care Plan - King Jackson RN - 06/19/2024 2:31 PM EST Problem: Potential for Compromised Skin Integrity Goal: Nutritional status is improving Outcome: Progressing Problem: Problem Interventions Goal: Dietary Supplements Outcome: Progressing Problem: Knowledge Deficit Goal: Patient/family/caregiver demonstrates understanding of disease process, treatment plan, medications, and discharge instructions Outcome: Progressing [facility] HospitalPqqsww85-50-6198 Nurse Note* Juliet Canchola RN - 06/18/2024 12:41 PM EST Patient refusing troponin blood draw at this time. [facility] HospitalSjwlvb12-50-6275 Hospital Discharge instructions* Discharge Instructions* THOMAS Urbano CNP - 06/18/2024 9:11 AM EST Expect a phone call within 72 hours post discharge. If you have questions, issues, or concerns please call or text the Ischemic Heart Disease Hotline, this is a cell phone, # [phone] (available 20/01) Post Cardiac Catheterization/Wrist Site Care Call your doctor with any medication questions or if you notice any side effects from your medications. If you are unable to fill your medications, please call your Denture Processor immediately. The office number is located with [...] Means You Should: Call/text the Ischemic hotline [phone] or your doctor's office for further instructions RED ZONE: Medical Alert Chest pain/pressure/discomfort or pain in the neck, jaw, arm, upper back that is lasting longer than 5 minutes OR NOT relieved after nitroglycerin (if prescribed) Severe shortness of breath Passing out or fainting This Means You Should Call 911 Immediately Heart-Healthy Life-Style Modifications Take your medications as prescribed Quit smoking ([facility] [email or web address]) Control your blood sugar Treat high-blood pressure Eat a heart-healthy diet, low in saturated and trans-fat, sodium and added sugars Exercise regularly Achieve and maintain a healthy weight Keep your follow-up appointments Ask Your Provider Before You Take New medications Jhxr-frr-xycrrsl drugs, nutrition supplements or herbal therapies Avoid [...] Cardiac Rehab The Cardiac Rehab team at [facility] consists of highly skilled exercise [...] your heart. We have facilities at both [facility] and [facility]. At both locations we have street level parking which is free and our sites are easily accessible. For both college hospital you can contact us at . We invite you to call us with your questions or to get started in our program. If you have other questions or concerns be sure to ask your provider during your follow up visit. We look forward to seeing you there. Our locations: [facility] [address] [facility] [address] [facility] Floor [address] - [facility] floor * Attachments The following attachments cannot be sent through Care Everywhere. * Heart Failure With Reduced Ejection Fraction (Filipino) * Heart Healthy Diet (Filipino) * Kidney Failure (Filipino) documented in this [facility]12-20-2024 Nurse Note* Kae Zhao RN - 06/18/2024 6:41 AM EST Patient had ST elevation on two leads, I called Dr. Jeter EKG done and showed ST elevation, and sinus tachycardia, with no symptoms or chest pain. Patient refused blood work again to check his troponin, BNP, and magnesium levels. IV is edematous and patient needs a new IV if not discharged. [facility] HospitalDdcogt14-61-8140 NoteProblem: Problem Interventions Goal: Promote nutritional intake Outcome: Not [facility]12-20-2024 Plan of care note* Care Plan - Kae Vela RN - 06/18/2024 1:44 AM EST Problem: Problem Interventions Goal: Promote nutritional intake Outcome: Not Progressing [facility]zerZmmskd09-39-5429 Nurse Note* Juliet Canchola RN - 06/17/2024 2:17 PM EST Patient had a twenty second run of vtach caught on tele monitor. Dr. Mcguire and Gaby Marcano AUTOMAT WATCHER forcardiology notified. No new orders at this time. [facility] SchmoozerKgjyit28-04-0616 Nurse Note* Juliet Canchola RN - 06/17/2024 [...] sensation in right hand at this time. Schm[facility]zerFafbvh78-64-0978 Note* Pre-Sedation Documentation - Akilah Diaz MD [...] and proceed to administer sedation as planned. [facility] Phone: [phone] Note* Pre-Sedation Documentation - Akilah Diaz MD [...] and proceed to administer sedation as planned. [facility] Phone: [phone] Note* Significant Event - THOMAS Urbano CNP - 06/17/2024 8:43 AM EST Spoke with Marcus Delvalle RN from laborer high density press. Pt refused RHC/LHC yesterday, but was agreeable [...] at this time. Will await cath results. [facility]12-19-2024 Note* Significant Event - THOMAS Urbano CNP - 06/17/2024 8:43 AM EST Spoke with Marcus Delvalle RN from [employer]orer [employer]. Pt refused RHC/LHC yesterday, but was agreeable [...] at this time. Will await cath results. [facility] HospitalWpwzqj06-22-7408 Nurse Note* Radha Acevedo RN - 06/16/2024 [...] he refused for nightshift. Radha Acevedo RN [facility] HospitalIlpsrk38-23-7694 Plan of care note* Care Plan - [...] Goal: Promote nutritional intake Outcome: Not Progressing [facility] HospitalHiyzhy70-71-8513 Note* Care Coordination - Brittany Alston RN - 06/15/2024 1:20 PM EST Care Management Progress Note Pt has been verified as SELF PAY by financial counselor's. If pt requires Eliquis and /or other meds at [facility] then need to call and send scripts to [facility] prior to DC. RN taking care of pt updatedthat will need to get DC meds from [facility] prior to DC. Length of Stay (Days): 2 GMLOS: 3.9 [facility] Fuormd59-21-6222 Note* Care Coordination - Brittany Alston RN [...] Length of Stay (Days): 2 GMLOS: 3.9 [facility] Uhomxd45-85-8116 Consult note* Maritza Linn, THOMAS - ASSOCIATE FINANCIAL PLANNER - 06/15/2024 9:44 AM ESTAssociated Order(s): IP CONSULT TO NEPHROLOGY [facility] Consult Note Reason for Consult/Chief Complaint: SCHUYLER/CKD with CHF exacerbation Consulting MD: Dr. Sergei Mcguire [facility] Outpatient Refinery Operator Vapor Recovery Unit: N/A History of Present Illness: Carlo is [...] any questions or concerns. Maritza Linn APRN, ASSOCIATE FINANCIAL PLANNER [facility], [employer] [phone] office Cosigned by Anand Mccullough MD at [...] of Cr. PVR to r/o urinary retention. SchmoozerPrvbwn58-84-7838 Plan of care note* Care Plan - Emerald Allan RN - 06/15/2024 5:42 AM EST Problem: Knowledge Deficit Goal: Patient/family/caregiver demonstrates understanding of disease process, treatment plan, medications, and discharge instructions Outcome: Progressing Problem: Potential for Compromised Skin Integrity Goal: Skin Integrity is Maintained or Improved Outcome: Progressing Problem: Urinary Incontinence Goal: Perineal skin integrity is maintained or improved Outcome: Progressing [employer] Qoqgdh70-43-5584 Nurse Note* Emerald Allan RN - 06/15/2024 3:09 AM EST Patient is resting in bed. Bed in low position and locked with call light in reach. [facility] HospitalGohpmb51-74-4984 Note* Care Coordination - MICHAEL Kramer - 06/14/2024 2:33 PM EST JOZEF coverage for today. Chart reviewed. Pt discussed in rounds today. Pt is self pay, but has indicates that he will have insurance starting in Jun 2024. Per old chart on 04/28/2024 SW was able to communicated with Christian from [employer]. Financial screening completed with patient this afternoon. Patient was over income for Medicaid program. [facility] referred patient to Hospital Care Assurance Program; application completed and submitted. HCAP will assist with [facility] and [facility] for up to 3 months if approved. HCAP will not assist with home going prescriptions. SW will follow to assist as needed. [facility] HospitalQxltke78-85-3190 Note* Care Coordination - MICHAEL Kramer - 06/14/2024 2:33 PM EST coverage for today. Chart reviewed. Pt discussed in rounds today. Pt is self pay, but has indicates that he will have insurance starting in Jun 2024. Per old chart on 04/28/2024 SW was able to communicated with Christian from [employer]. Financial screening completed with patient this afternoon. Patient was over income for Medicaid program. [facility] referred patient to Hospital Care Assurance Program; application completed and submitted. HCAP will assist with current hospitalization and other [facility] for up to 3 months if approved. HCAP will not assist with home going prescriptions. SW will follow to assist as needed. [facility] HospitalZfadjz28-92-6232 Consult note* Angel Luis Morales MD - 06/14/2024 9:04 AM ESTAssociated Order(s): IP CONSULT TO CARDIOLOGY [facility] [place] [facility] Cardiology /Electrophysiology Consult Note Reason for Consult/Chief Complaint: Dyspnea, edema Consulting provider: Andrew Established solvent plant treater: Leatha History of Present Illness: Carlo Medina [...] and Inpatient algorithms. Recent Labs 06/13/24 1459 06/13/24203406/14/24 0342 NA 142 142 144 K 5.7* [...] Luis Morales MD DATE of SERVICE: 06/14/2024 [facility]12-15-2024 Plan of care note* Care Plan - [...] integrity is maintained or improved Outcome: Progressing [facility]12-15-2024 History and physical note* Serg Celaya MD [...] min Stress: No Stress Concern Present (04/28/2024) [place] [employer]ational [employer] - Occupational Stress Questionnaire Feeling of Stress : Not at all Recent Concern: Stress - Stress Concern Present (02/28/2024) [employer] - Occupational Stress Questionnaire Feeling of Stress : To some extent Social Connections: Unknown (04/28/2024) Social Connection and Isolation Panel [NHANES] Frequency of Communication with Friends and Family: Once a week Frequency of Social Gatherings with Friends and Family: Once a week Attends Anabaptist Services: Patient unable to answer Active Member [...] signed by @[email or web address]@ on @TDNR@ at @NOWNR@ [facility] HospitalOldwep83-54-6968 [facility]12-15-2024 History and physical note* Serg Celaya [...] min Stress: No Stress Concern Present (04/28/2024) [employer] [employer] - Occupational Stress Questionnaire Feeling of Stress : Not at all Recent Concern: Stress - Stress Concern Present (02/28/2024) [employer] - Occupational Stress Questionnaire Feeling of Stress : To some extent Social Connections: Unknown (04/28/2024) Social Connection and Isolation Panel [NHANES] Frequency of Communication with Friends and Family: Once a week Frequency of Social Gatherings with Friends and Family: Once a week Attends Anabaptist Services: Patient unable to answer Active Member [...] on @TDNR@ at @NOWNR@ documented in this [facility]12-15-2024 Emergency department Note* Jono Dubois DO - [...] min Stress: No Stress Concern Present (04/28/2024) [employer] - Occupational Stress Questionnaire Feeling of Stress : Not at all Recent Concern: Stress - Stress Concern Present (02/28/2024) [employer] - Occupational Stress Questionnaire Feeling of Stress : To some extent Social Connections: Unknown (04/28/2024) Social Connection and Isolation Panel [NHANES] Frequency of Communication with Friends and Family: Once a week Frequency of Social Gatherings with Friends and Family: Once a week Attends Anabaptist Services: Patient unable to answer Active Member [...] 06/13/2024 1:45 PM EST Emergency Department Encounter [facility] CARDIAC PROGRESSIVE CARE UNIT PCU 2E Patient: [...] for clarification.) Joel Reyes MD Acute Care [facility] Joel Reyes MD 06/14/24 1447 * Rosa Gr RN - 06/13/2024 1:45 PM EST Pt presents for abdominal pain starting yesterday. States he vomited earlier today. Denies diarrhea. Also having loss of appetite. Denies urinary symptoms. Also having swelling in BLE x2 weeks. Hx CHF. +fatigue documented in this [facility]12-15-2024 Emergency department Triage note* Rosa Gr RN - 06/13/2024 1:45 PM EST Pt presents for abdominal pain starting yesterday. States he vomited earlier today. Denies diarrhea. Also having loss of appetite. Denies urinary symptoms. Also having swelling in BLE x2 weeks. Hx CHF. +fatigue [facility] HospitalZtfvhh07-63-2342 Physician Emergency department Note* Jono Dubois DO [...] min Stress: No Stress Concern Present (04/28/2024) [employer] - Occupational Stress Questionnaire Feeling of Stress : Not at all Recent Concern: Stress - Stress Concern Present (02/28/2024) [place] [employer] - Occupational Stress Questionnaire Feeling of Stress : To some extent Social Connections: Unknown (04/28/2024) Social Connection and Isolation Panel [NHANES] Frequency of Communication with Friends and Family: Once a week Frequency of Social Gatherings with Friends and Family: Once a week Attends Anabaptist Services: Patient unable to answer Active Member [...] Reyes MD at 06/14/2024 2:47 PM EST [facility] Phone: [phone] 687-953312-15-2024 Physician Emergency department Note* Joel Reyes MD - 06/13/2024 1:45 PM EST Emergency Department Encounter [facility] CARDIAC PROGRESSIVE CARE UNIT PCU 2E Patient: [...] [employer] [facility] [employer] Joel Reyes MD 06/14/24 [address] [employer] Phone: [phone]) 115-224312-12-2024 Telephone encounter Note* Telephone Encounter - Morgan Ulloa APRN - VIKKI - 06/10/2024 11:44 AM EST I called [...] Zhang July 01, 2023 for continued evaluation. [facility] HospitalHnptdk07-85-4301 Miscellaneous Notes* Telephone Encounter - THOMAS Mi [...] his feet and ankles. documented in this encounterSumma Fguvfc22-89-3883 Telephone encounter Note* Telephone Encounter - Sue Felipe - 06/10/2024 10:37 AM EST Pt called in stating he's been having stomach pains on and off yesterday and wants to know what he should do. He also states he is still having swelling in his feet and ankles. [facility] HospitalEtwehj81-46-7133 History of Present illness Narrative* Morgan Ulloa, LONG GOODS DRIER - ASSOCIATE FINANCIAL PLANNER - 06/08/2024 9:30 AM EST Images from the original note were not included. [facility] Cardiology Office Note DATE of SERVICE: 06/08/24 TIME of SERVICE: 11:12 AM Reason for Visit: Chief Complaint Patient presents with Hospital Follow-up History ofPresent Illness: Carlo Medina is a 44 y.o. male who presents in office today after his admission to [facility] 05/28/2024-06/01/2024. He has a history of [...] 30% per transthoracic echo February 2024-appears decompensated, [place] Heart Association functional class III, stage C [...] Chronic kidney disease-creatinine measured 2.05, BUN 37 June 01, this appears to be his baseline over [...] he please notify our office. Morgan Ulloa APRN/ASSOCIATE FINANCIAL PLANNER documented in this [facility]12-10-2024 Miscellaneous Notes* Addendum Note - Radha Hernanedz - 06/08/2024 9:30 AM ESTAddended by: RADHA HERNANDEZ on: 06/08/2024 12:19 PM Modules accepted: Orders documented in this [facility]12-10-2024 Note* Addendum Note - Radha Hernandez - 06/08/2024 9:30 AM ESTAddended by: RADHA HERNANDEZ on: 06/08/2024 12:19 PM Modules accepted: Orders [facility] HospitalXrmctz03-84-5360 Note* Addendum Note - Radha Hernandez - 06/08/2024 9:30 AM ESTAddended by: RADHA HERNANDEZ on: 06/08/2024 12:19 PM Modules accepted: Orders [facility] HospitalNjkirn23-61-3497 Telephone encounter Note* Telephone Encounter - Tracy Harris - 06/07/2024 9:53 AM EST Patient unable to pay the 50% at time of appt due to declined hcap and no health insurance. [facility] HospitalLqinle18-89-5947 Miscellaneous Notes* Telephone Encounter - Tracy Harris - 06/07/2024 9:53 AM EST Patient unable to pay the 50% at time of appt due to declined hcap and no health insurance. documented in this encounterSBarnesville HospitalOsegjc12-36-3491 Telephone encounter Note* Telephone Encounter - Sintia Sosa LPN - 06/04/2024 4:04 PM EST Spoke with the patient and he does not have health insurance nor does he qualify for medicaid or hospital judie per his girlfriend. He has a follow-up appt with cardio on 2023. I did give them the phone number for [facility]. [facility] HospitalKzczso24-10-5800 Miscellaneous Notes* Telephone Encounter - Sintia Sosa LPN - 06/04/2024 4:04 PM EST Spoke with the patient and he does not have health insurance nor does he qualify for medicaid or hospital judie per his girlfriend. He has a follow-up appt with cardio on 2023. I did give them the phone number for [facility]. * Telephone Encounter - Kaitlin Gonzalez LPN - 06/04/2024 7:38 AM EST Please contact patient to schedule. * Telephone Encounter - Lore Sarah RN - 06/03/2024 8:20 PM EST Pt needs to establish care with a PCP for an ED follow-up visit as soon as possible for LLE edema. Pt does not have insurance. Message sent to [facility] and [facility] to follow-up with patient during office hours for scheduling assistance. documented in this [facility]12-06-2024 Telephone encounter Note* Telephone Encounter - Kaitlin Gonzalez LPN - 06/04/2024 7:38 AM EST Please contact patient to schedule. [place] [address]Oxhrsi74-23-2093 Emergency department Note* Louise Wakefield RN - 06/03/2024 10:03 PM EST This RN asked if pt wanted to come back into triage to have lucrecia wrap placed. Significant other said, I'll put it on. Pt and significant other left. [address]kxxml51-62-3941 Emergency department Note* Louise Wakefield RN - [...] stage 3 kidney disease documented in this [place] [address]-05-2024 Hospital Discharge instructions* Discharge Instructions* Jia Victor PA-C - 06/03/2024 9:01 PM EST Please follow-up with your solvent plant treater on the as scheduled. You will be [...] prescribed and follow-upas recommended. documented in this encounterSBarnesville HospitalEenbzz18-52-5755 Telephone encounter Note* Telephone Encounter - Lore Sarah RN - 06/03/2024 8:20 PM EST Pt needs to establish care with a PCP for an ED follow-up visit as soon as possible for LLE edema. Pt does not have insurance. Message sent to [facility] and [facility] to follow-up with patient during office hours for scheduling assistance. [facility] HospitalSrahle61-30-0153 Emergency department Triage note* Belkys Townsend RN - 06/03/2024 6:28 PM EST Pt presents to ED for c/o Bilateral leg swelling since yesterday and was recently diagnosed and admitted for CHF and stage 3 kidney disease [facility] HospitalYqbkhl70-63-7823 Telephone encounter Note* Telephone Encounter - Kaitlin Gonzalez LPN - 06/03/2024 10:04 AM EST S: Patient admitted to: [facility] 05/28/24 B: Discharged on : 06/01/24 A: Hospital follow up call initiated to discuss any medication changes, follow up appointments and discharge instructions: Metabolic acidosis R: No contact x 1 at : [phone] [facility] HospitalHoogaz41-20-2856 Miscellaneous Notes* Telephone Encounter - Kaitlin Gonzalez LPN - 06/03/2024 10:04 AM EST S: Patient admitted to: [facility] 05/28/24 B: Discharged on : 06/01/24 A: Hospital follow up call initiated to discuss any medication changes, follow up appointments and discharge instructions: Metabolic acidosis R: No contact x 1 at : [phone] documented in this [facility]12-04-2024 Telephone encounter Note* Telephone Encounter - Kalyn Street - 06/02/2024 6:54 PM EST Name of caller: Carlo Contact phone number: [phone] Relationship to Patient: patient Provider: Morgan Ulloa CNP Practice: Cardiology Chief Complaint/Reason for Call: Patient returning call from office. Please call and advise. Best time of day caller can be reached: AM Patient advised that office/PCP has 24-48 business hours to return their call: No [facility] HospitalAtifxw96-68-3111 Miscellaneous Notes* Telephone Encounter - Kalyn Street - 06/02/2024 6:54 PM EST Name of caller: Carlo Contact phone number: [phone] Relationship to Patient: patient Provider: Morgan Ulloa CNP Practice: Cardiology Chief Complaint/Reason for Call: Patient returning call from office. Please call and advise. Best time of day caller can be reached: AM Patient advised that office/PCP has 24-48 business hours to return their call: No documented in this [facility]12-03-2024 Nurse Note* More Rojas RN - 06/01/2024 4:40 PM EST Patient discharged to home with all belongings. Iv was removed and heart monitor returned to nursing station. Discahrge paper work reviewed with patient, all questions answered. Patient reluctant to follow up at the offices in [place]. He is agreeable to follow up in [place] if he gets insurance. He was instructed to call for surgical, cardiac, and primary care appointments after discharge. He was also agreeable to toll collector supervisor his new prescripts if they are affordable. [facility] [id number] Nurse Note* More Rojas RN - 06/01/2024 4:40 PM EST Patient discharged to home with all belongings. Iv was removed and heart monitor returned to nursing station. Discahrge paper work reviewed with patient, all questions answered. Patient reluctant to follow up at the offices in [place]. He is agreeable to follow up in [place] if he gets insurance. He was instructed to call for surgical, cardiac, and primary care appointments after discharge. He was also agreeable to toll collector supervisor his new prescripts if they are affordable. [...] [facility] of if he is discharged or [...] need for daily labs. documented in this [facility]12-03-2024 Hospital Discharge instructions* Discharge Instructions* Mary Ellen [...] Everywhere. * Heart Failure Discharge Instructions, Adult (Filipino) * DASH Diet (Filipino) * How to Weigh Yourself (Filipino) documented in this [facility]12-03-2024 Consult note* Steven Bellamy MD - 06/01/2024 3:16 PM ESTAssociated Order(s): IP CONSULT TO GENERAL SURGERY Images from the original note were not included. Attending Attestation [facility] - General Surgery Patient Name: Carlo Medina [...] min Stress: No Stress Concern Present (04/28/2024) [employer] - Occupational Stress Questionnaire Feeling of Stress : Not at all Recent Concern: Stress - Stress Concern Present (02/28/2024) [employer] - Occupational Stress Questionnaire Feeling of Stress : To some extent Social Connections: Unknown (04/28/2024) Social Connection and Isolation Panel [NHANES] Frequency of Communication with Friends and Family: Once a week Frequency of Social Gatherings with Friends and Family: Once a week Attends Anabaptist Services: Patient unable to answer Active Member [...] Impression Patient Name: CARLO MEDINA : 1980 [facility]#: [id number] Exam Date/Time: 05/31/2024 15:37 Procedure: US ABDOMEN [...] Ultrasound Melendez sign is positive. Per the sonography technologist, the sonographic Melendez's sign wasnegative. Bile [...] EST Result History US abdomen complete (Order #[id number]) on 05/31/2024 - Order Result History Report [...] data. No Terri risk assessment data. No EKG MONITOR Request ID assessment data. No EKG MONITOR websphere process server developer ID assessment data. Breast Cancer Risk Navigation Events None Signed by Signed Time Phone Pager Joel Hi MD 05/31/2024 16:20 Exam Information Status Exam Begun Exam Ended Final 05/31/2024 15:37 05/31/2024 16:00 External Results Report Open External Results Report Encounter View Encounter Study Details Open Study Details Order Transmittal Tracking US abdomen complete (Order #[id number]) on 05/31/24 Order Report US abdomen complete (Order #[id number]) on 05/31/24 CBC: Recent Labs 05/30/24 1222 [...] 7:30a-4:30p Friday-Friday After hours, please contact physician educational recruiter. [facility] Phone: 1(299) 218-397212-03-2024 Consult note* Steven Bellamy MD - 06/01/2024 3:16 PM ESTAssociated Order(s): IP CONSULT TO GENERAL SURGERY Images from the original note were not included. Attending Attestation [facility] - General Surgery Patient Name: Carlo [...] min Stress: No Stress Concern Present (04/28/2024) [employer] - Occupational Stress Questionnaire Feeling of Stress : Not at all Recent Concern: Stress - Stress Concern Present (02/28/2024) [employer] - Occupational Stress Questionnaire Feeling of Stress : To some extent Social Connections: Unknown (04/28/2024) Social Connection and Isolation Panel [NHANES] Frequency of Communication with Friends and Family: Once a week Frequency of Social Gatherings with Friends and Family: Once a week Attends Anabaptist Services: Patient unable to answer Active Member [...] Impression Patient Name: CARLO MEDINA : 1980 [facility]#: [id number] Exam Date/Time: 05/31/2024 15:37 Procedure: US ABDOMEN [...] Ultrasound Melendez sign is positive. Per the sonography technologist, the sonographic Melendez's sign wasnegative. Bile [...] EST Result History US abdomen complete (Order #[id number]) on 05/31/2024 - Order Result History Report [...] data. No Terri risk assessment data. No EKG MONITOR Request ID assessment data. No EKG MONITOR websphere process server developer ID assessment data. Breast Cancer Risk Navigation Events None Signed by Signed Time Phone Pager Joel Hi MD 05/31/2024 16:20 Exam Information Status Exam Begun Exam Ended Final 05/31/2024 15:37 05/31/2024 16:00 External Results Report Open External Results Report Encounter View Encounter Study Details Open Study Details Order Transmittal Tracking US abdomen complete (Order #[id number]) on 05/31/24 Order Report US abdomen complete (Order #[id number]) on 05/31/24 CBC: Recent Labs 05/30/24 1222 [...] 7:30a-4:30p Friday-Friday After hours, please contact physician educational recruiter. * Tahmina Berg RD - 05/29/2024 2:14 [...] muscle mass loss Fluid Accumulation: Mild Extremities Doctor Of Osteopathy Strength: Not Performed Nutrition Assessment: 44 y.o. [...] On: Kcal/kg Weight Used for Energy Requirements: [place] Weight for Energy Calculation (kg): 84 kg Total Energy Requirements (kcals/day): 6511-8987 (25-30) Weight Used for Protein Requirements: [place] Weight in Kg Used for Protein Requirements: [...] per pt) % Weight Change (Calculated): -12.2 [place] Body Weight (lbs) (Calculated): 184 lbs [place] Body Weight (Kg) (Calculated): 84 kg % [place] Body Weight (Calculated): 97.8 % BMI (kg/m2) [...] outpatient nutrition counseling Tahmina Berg RD Contact: *[phone] or via Secure Chat * Garrick Bearden MD - 05/28/2024 3:25 PM ESTAssociated Order(s): IP CONSULT TO CARDIOLOGY [facility] [place] [facility] Cardiology /Electrophysiology Consult Note Reason for Consult/Chief Complaint: Nausea, vomiting, feeling dehydrated Referring provider: [facility] solvent plant treater: Katerin History of Present Illness: Carlo Medina [...] pain, palpitations or syncope. 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 Assessment/Plan HF NYHA Class [...] I recommended that he be transferred to [facility] cardiology service possibly even the heart failure [...] DATE of SERVICE: 05/28/2024 * Maritza Linn, LONG GOODS DRIER - ASSOCIATE FINANCIAL PLANNER - 05/28/2024 1:28 PM ESTAssociated Order(s): IP CONSULT TO NEPHROLOGY [facility] Consult Note Reason for Consult/Chief Complaint: worsening renal function Consulting MD: Dr. Mary Ellen Brito Outpatient Refinery Operator Vapor Recovery Unit: N/A History of Present Illness: Carlo Medina [...] any questions or concerns. Maritza Linn APRN, ASSOCIATE FINANCIAL PLANNER [facility], [facility] [phone] office Cosigned by Saul Briones MD at [...] PRN hydral for now. Saul Briones MD [facility] [phone] documented in this [facility]12-03-2024 Note* Rapid Response Note - Jose Raul Barahona RN - 06/01/2024 1:46 PM EST Labs drawn and given to More Rn at pts bedside [facility] [id number] Note* Rapid Response Note - Jose Raul Barahona RN - 06/01/2024 1:46 PM EST Labs drawn and given to More Rn at pts bedside [facility] [id number] Miscellaneous Notes* Rapid Response Note - Jose Raul Barahona RN - 06/01/2024 1:46 PM EST Labs drawn and given to More Rn at pts bedside * Care Coordination - Dia Gaitan RN - 05/31/2024 9:55 AM EST 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 Pt has been unable to follow up with Cardiology as pt is uninsured. - Per SW note on 04/28, pt has been denied Medicaid as he is over income. - Pt completed an HCAP application on 04/28/24 during a previous hospitalization at [facility]. This RN has made multiple attempts [...] Will continue to follow. Addendum: Notified by [employer] that [employer] screened the patient over income [...] is improving Outcome: Progressing documented in this [facility]12-03-2024 [facility] 06-01-2024 Hospital course Narrative* Mary Ellen Brito [...] Your Medications These medications were sent to [facility]/pharmacy #[id number] [place] [address] carvedilol 25 MG tablet cholecalciferol 50 MCG (1999 [place]) tablet clopidogrel 75 MG tablet furosemide 40 MG tablet hydrALAZINE 25 MG tablet isosorbide dinitrate 20 MG tablet sodium bicarbonate 650 MG tablet Recommended Follow-up: Sergei Astudillo MD [address] [facility] [address] Follow up The heart failure/cardiology office will call you to scheduled follow-up. [facility] [address] [phone] Follow up If you cannot get insurance, please call [facility] at [phone] and tell them you need follow-up with Dr. Conklin for your heart failure. Maritza Linn, LONG GOODS DRIER - ASSOCIATE FINANCIAL PLANNER [address] [place] [address] [address] [phone] Follow up in 1 week(s) Steven Bellamy MD [address] [facility] [address] [place] [address] Schedule an appointment as soon as possible for a visit in 1 week(s) Hospital follow up, [facility] pace [facility] [place] [address] [facility] [phone] Complexity of Follow up: [] Moderate Complexity: follow up within 7-14 calendar days (87609) [x] Severe Complexity: follow up within 7 calendar days (95476) Follow up Testing, Pending results or Referrals [...] Ellen Brito MD Division of Hospitalist Medicine [facility] 06/01/2024, 3:59 PM documented in this [facility]12-03-2024 Nurse Note* More Rojas RN - 06/01/2024 [...] is stating that he will be leaving [facility], regardless of if he is discharged or not. [facility] [id number] History of Present illness Narrative* THOMAS Mi CNP - 06/01/2024 9:59 AM EST [facility] [place] [facility] Cardiology /Electrophysiology Progress Note HPI / Interval History: Carlo Medina, 44 year old male presented to [facility] with shortness of breath, nausea, vomiting and acute decompensated heart failure. He was recently admitted to [facility] and diagnosed with probable NICM- EF-30% [...] Pt requests to follow up at the [place] office, states he is unable to follow up at [facility] office-it is too far for mygirlfriend to drive. Assessment/Plan HF NYHA Class [] I [x] II [] III [] IV []Unable to assess [] N/A NICM HFrEF- Stage C, Class II, EF 30% per TTE 02/2024 -appears euvolemic on exam today and has no current HF symptoms - pt states he will not follow up at [facility]- too far to drive. Follow up arranged [facility] Cardiology [place] office 06/08/2024 at 9:30 am. - continue [...] barrier to care and case management and director of social work have been consultedto assist with obtaining insurance [...] and SCHUYLER 6. Disposition- follow up arrange [facility] Cardiology [place] office 06/08/2024 at 9:30 am with myself -If he cannot obtain insurance, he can follow-up with Dr. Conklin at [facility] - pt states if possible he does not wish to follow up in the [facility] office due to transportation. Medications: carvedilol, 25 [...] questions or concerns. Maritza Linn APRN, VIKKI [facility], [facility] [phone] Cosigned by Anand Mccullough MD at 05/31/2024 9:46 PM EST * Mary Ellen Birto MD - 05/31/2024 12:08 PM EST Hospitalist [...] trying to set him up with discharge assistant editor. He was notified that if needed Dr. Sierra operates at [facility] and can follow-up with cardiology as outpatient [...] History: Diagnosis Date CHF (congestive heart failure) ([facility]) Hypercholesteremia Hypertension LABS: CBC: Recent Labs 05/29/24 [...] weights Cardiology consult -recommending possible transfer to [facility] for more invasive cardiovascular workup given the intensity of heart failure and the young age Continue daily labs SCHUYLER and ATN on CKD 3b Obtain urine studies HOLD diuretics and ARN Consider [facility]. Nephrology consulted Added sodium bicarbonate 650 [...] will reapproach cardiology recommendations for transfer to [facility] tomorrow. He was feeling little bit overwhelmed during discussions today, - am labs, replace lytes prn -05/31-patient feeling slightly better than yesterday, to notice some depression, would like to recommend outpatient counselor. He declined at this time. States he does not know how to swallow pills and does not want to be evaluated by FOOD ASSEMBLER KITCHEN to see if he can be educated on how to swallow. Will continue to adjust medication monitoring electrolytes. If stable tomorrow with final recommendations for home medication regiment will possibly discharge tomorrow. Cardiology will need to follow-up outpatient and no need to transfer to [facility] anymore - PT/OT/CM/SW - delirium precautions: [...] Ellen Brito MD Division of Hospitalist Medicine [facility] * Lizzette Burger, LONG GOODS DRIER - ASSOCIATE FINANCIAL PLANNER - 05/31/2024 8:11 AM EST [facility] Cardiology /Electrophysiology Progress Note HPI / Interval History: Carlo Medina has a history of recently diagnosed HFrEF likely due to NICM and probable CKD who presented to [facility] with shortness of breath, nausea, vomiting and acute decompensated heart failure. He was hospitalized at [facility] where he had an echocardiogram showing [...] - no current need to transfer to [facility] HF service, we can titrate medications [...] barrier to care and case management and director of social work have been consulted to assist with obtaining [...] pressure is normal (~3 mmHg). Signed by: aRdha Parikh on 02/29/2024 9:39 AM Other reports [...] that cardiology was requesting to transfer to [facility] for greater workup. At this time [...] weights Cardiology consult -recommending possible transfer to [facility] for more invasive cardiovascular workup given the intensity of heart failure and the young age Continue daily labs SCHUYLER and ATN on CKD 3b Obtain urine studies HOLD diuretics and ARN Consider alternative HT[facility] treatment [facility]. Nephrology consulted Added sodium bicarbonate 650 [...] will reapproach cardiology recommendations for transfer to [facility] tomorrow. He was feeling little bit [...] Ellen Brito MD Division of Hospitalist Medicine [facility] * Maritza VarelaBill Linn, LONG GOODS DRIER - ASSOCIATE FINANCIAL PLANNER - 05/30/2024 10:47 AM EST [facility] [...] any questions or concerns. Maritza Linn APRN, ASSOCIATE FINANCIAL PLANNER [facility] [place], [facility] [phone] Cosigned by Saul Briones MD at 05/30/2024 2:41 PM EST Associated attestation - Saul Briones MD - 05/30/2024 2:41 PM EST Notes reviewed and plan discussed with the AUTOMAT WATCHER. Agree with above note except Any variance is noted below. Saul Briones MD [facility] [phone] * THOMAS An CNP - 05/30/2024 7:24 AM EST [facility] Cardiology /Electrophysiology Progress Note HPI / Interval History: Carlo Medina has a history of recently diagnosed HFrEF likely due to NICM and probable CKD who presented to [facility] with shortness of breath, nausea, vomiting and acute decompensated heart failure. He was hospitalized at [facility] where he had an echocardiogram showing [...] he states he has no appetite, but bedshirleye RN states he ate his entire dinner [...] primary service arrange f/u with patient's outpatient solvent plant treater 1-2 wks. [x] Recommended; unable to arrange at this time, will arrange post-discharge The heart failure clinic will call him to arrange follow-up [] Arranged as follows: If there are any questions/concerns, please contact the covering provider. If no answer by Secure Chat, please call the cardiology office to obtain appropriate covering MANAGER SOCIAL WORK/physician. Medications: carvedilol, 25 mg, Oral, BID WC [...] HOLD ARN Consider alternative HTN treatment in [place]. Nephrology following Metabolic acidosis No insurance for [...] Dasha Lyn MD Division of Hospitalist Medicine [facility] * Maritza Corona Gagantalita, LONG GOODS DRIER - ASSOCIATE FINANCIAL PLANNER - 05/29/2024 9:40 AM EST [facility] [...] and overnight issues are reviewed Objective/ Vitals: 05/28/24201805/28/24 2344 05/29/24 0305 05/29/24 0829 BP: 112/83 [...] any questions or concerns. Maritza Linn APRN, ASSOCIATE FINANCIAL PLANNER [facility] [place], [facility] [phone] Cosigned by Saul Briones MD at 05/29/2024 12:46 PM EST Associated attestation - Saul Briones MD - 05/29/2024 12:46 PM EST Notes reviewed and plan discussed with the PA. Agree with above note except Any variance is noted below. Renal function improving and near baseline. Continue to trend as the patient is diuresed. Saul Briones MD [facility] [phone] * Lizzette Burger, LONG GOODS DRIER - ASSOCIATE FINANCIAL PLANNER - 05/29/2024 7:40 AM EST [facility] Cardiology /Electrophysiology Progress Note HPI / Interval History: Carlo Medina has a history of recently diagnosed HFrEF likely due to NICM and probable CKD who presented to [facility] with shortness of breath, nausea, vomiting and acute decompensated heart failure. 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 Pt has been unable to follow up with Cardiology as pt is uninsured. - Per JOZEF note on 04/28, pt has been denied Medicaid as he is over income. - Pt completed an HCAP application on 04/28/24 during a previous hospitalization at [facility]. This RN has made multiple attempts [...] Will continue to follow. Addendum: Notified by [employer] that [employer] screened the patient over income for Medicaid, but did not assist with a Medicaid application for denial. [employer] to go see patient and have him sign forms to apply for Medicaid for denial so HCAP application can be processed. 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 Pt has been unable to follow up with Cardiology as pt is uninsured. - Per note on 04/28, pt has been denied Medicaid as he is over income. - Pt completed an HCAP application on 04/28/24 during a previous hospitalization at [facility]. This RN has made multiple attempts [...] Will continue to follow. Addendum: Notified by [employer] that [employer] screened the patient over income for Medicaid, but did not assist with a Medicaid application for denial. [employer] to go see patient and have him sign forms to apply for Medicaid for denial so HCAP application can be processed. [facility] [id number] Nurse Note* Kira Santos RN - 05/31/2024 [...] medications and how many he is on. [facility] [id number] Plan of care note* Care Plan - King Jackson RN - 05/30/2024 5:48 PM EST Problem: Knowledge Deficit Goal: Patient/family/caregiver demonstrates understanding of disease process, treatment plan, medications, and discharge instructions Outcome: Progressing Problem: Potential for Compromised Skin Integrity Goal: Skin Integrity is Maintained or Improved Outcome: Progressing Problem: Potential for Compromised Skin Integrity Goal: Nutritional status is improving Outcome: Progressing [facility] [id number] Nurse Note* King Jackson RN - 05/30/2024 [...] reassured concerns would be addressed to physicians. [facility] [id number] Telephone encounter Note* Telephone Encounter - THOMAS An CNP - 05/30/2024 9:18 AM EST Patient admitted to [facility] with recurrent HF, SCHUYLER and lack of appetite. Mildly volume overloaded. Titration of HF meds difficult to patient resistance. He will need 1-2 week follow-up in HF clinic (he was initially seen by Dr. Astudillo). Please call to schedule. Thanks. [facility] [employer] Work Phone: [phone]) 582-881512-01-2024 Miscellaneous Notes* Telephone Encounter - THOMAS An CNP - 05/30/2024 9:18 AM EST Patient admitted to [facility] with recurrent HF, SCHUYLER and lack of appetite. Mildly volume overloaded. Titration of HF meds difficult to patient resistance. He will need 1-2 week follow-up in HF clinic (he was initially seen by Dr. Astudillo). Please call to schedule. Thanks. documented in this [facility]12-01-2024 Nurse Note* Tita Hernandez RN - 05/30/2024 5:14 AM EST Pt did not want to get stuck for labs and wanted to talk with daytime Dr about need for daily labs. [facility] [id number] Consult note* Tahmina Berg RD - 05/29/2024 [...] muscle mass loss Fluid Accumulation: Mild Extremities Doctor Of Osteopathy Strength: Not Performed Nutrition Assessment: 44 y.o. [...] On: Kcal/kg Weight Used for Energy Requirements: [place] Weight for Energy Calculation (kg): 84 kg Total Energy Requirements (kcals/day): 1492-2629 (25-30) Weight Used for Protein Requirements: [place] Weight in Kg Used for Protein Requirements: [...] per pt) % Weight Change (Calculated): -12.2 [place] Body Weight (lbs) (Calculated): 184 lbs [place] Body Weight (Kg) (Calculated): 84 kg % [place] Body Weight (Calculated): 97.8 % BMI (kg/m2) [...] outpatient nutrition counseling Tahmina Berg RD Contact: *[phone] or via Secure Chat [facility] [id number] Plan of care note* Care Plan - King Jackson RN - 05/28/2024 4:04 PM EST Problem: Knowledge Deficit Goal: Patient/family/caregiver demonstrates understanding of disease process, treatment plan, medications, and discharge instructions Outcome: Progressing Problem: Potential for Compromised Skin Integrity Goal: Skin Integrity is Maintained or Improved Outcome: Progressing Problem: Potential for Compromised Skin Integrity Goal: Nutritional status is improving Outcome: Progressing [facility] [id number] Consult note* Garrick Bearden MD - 05/28/2024 3:25 PM ESTAssociated Order(s): IP CONSULT TO CARDIOLOGY [facility] [place] [facility] Cardiology /Electrophysiology Consult Note Reason for Consult/Chief Complaint: Nausea, vomiting, feeling dehydrated Referring provider: [facility] solvent plant treater: Katerin History of Present Illness: Carlo Medina [...] pain, palpitations or syncope. 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 Assessment/Plan HF NYHA Class [...] I recommended that he be transferred to [facility] cardiology service possibly even the heart failure [...] Garrick Bearden MD DATE of SERVICE: 05/28/2024 [facility] Phone: 1(269) 424-688711-29-2024 History and physical note* Mary Ellen Brito [...] min Stress: No Stress Concern Present (04/28/2024) [employer] [facility] [employer]ational [employer] - Occupational Stress Questionnaire Feeling of Stress : Not at all Recent Concern: Stress - Stress Concern Present (02/28/2024) [employer] - Occupational Stress Questionnaire Feeling of Stress : To some extent Social Connections: Unknown (04/28/2024) Social Connection and Isolation Panel [NHANES] Frequency of Communication with Friends and Family: Once a week Frequency of Social Gatherings with Friends and Family: Once a week Attends Anabaptist Services: Patient unable to answer Active Member [...] Medina Mobile Relation: Sister Secondary Emergency Contact: Surekha Hicksfer Mobile Relation: Significant Other [employer] Carlo Medina : 1980 Primary Care Physician: No primary care provider on file. The patient and/or family/surrogate voluntarily agreed to participate in ACP services. Patient s cognitive capacity: intact Code Status: [X] [FULL CODE - Continue all advanced life support: CPR,intubation,invasive procedures] [_] [DNR-CCA - DO NOT do CPR, intubation] [_] [DNR-FULL STACK WEB DEVELOPER - Comfort care only] [_] DNR form [was/was not] signed Summary of discussion: The patient health care POA/ surrogate is the following: Aurelia Deckre. [Condition that instigated the ACP on this [...] Ellen Brito MD Division of Hospitalist Medicine [facility] [id number] [facility]11-29-2024 History and physical note* Mary Ellen [...] min Stress: No Stress Concern Present (04/28/2024) [employer] [place]ational [employer] - Occupational Stress Questionnaire Feeling of Stress : Not at all Recent Concern: Stress - Stress Concern Present (02/28/2024) [employer]ational [employer] - Occupational Stress Questionnaire Feeling of Stress : To some extent Social Connections: Unknown (04/28/2024) Social Connection and Isolation Panel [NHANES] Frequency of Communication with Friends and Family: Once a week Frequency of Social Gatherings with Friends and Family: Once a week Attends Anabaptist Services: Patient unable to answer Active Member [...] - DO NOT do CPR, intubation] [_] [DNR-FULL STACK WEB DEVELOPER - Comfort care only] [_] DNR form [...] Ellen Brito MD Division of Hospitalist Medicine [facility] documented in this [facility]11-29-2024 Consult note* Maritza Linn, LONG GOODS DRIER - ASSOCIATE FINANCIAL PLANNER - 05/28/2024 1:28 PM ESTAssociated Order(s): IP CONSULT TO NEPHROLOGY [facility] Consult Note Reason for Consult/Chief Complaint: worsening renal function Consulting MD: Dr. Mary Ellen Brito Outpatient Refinery Operator Vapor Recovery Unit: N/A History of Present Illness: Carlo Medina [...] questions or concerns. Maritza Linn APRN, VIKKI [facility], [facility] [phone] office Cosigned by Saul Briones MD at [...] PRN hydral for now. Saul Briones MD [facility] [phone] [facility] [id number] NoteSinus tachycardia Probable left atrial enlargement Abnormal R-wave progression, late transition Left ventricular hypertrophy Nonspecific T abnormalities, lateral leads Anterior ST elevation, probably due to LVH Electronically Signed On 05-28-2024 09:01:45 EST by Izaiah Lo Conjur 05-28-2024 NoteSinus tachycardia Probable left atrial enlargement Abnormal R-wave progression, late transition Left ventricular hypertrophy Nonspecific T abnormalities, lateral leads Anterior ST elevation, probably due to LVH Electronically Signed On 05-28-2024 09:01:45 EST by Izaiah oL Conjur 05-28-2024 Emergency department Note* Chas Torres MD - 05/28/2024 7:59 AM EST [facility] ED EMERGENCY DEPARTMENT ENCOUNTER Pt Name: Carlo [...] min Stress: No Stress Concern Present (04/28/2024) [employer] - Occupational Stress Questionnaire Feeling of Stress : Not at all Recent Concern: Stress - Stress Concern Present (02/28/2024) [employer] Occupational Health - Occupational Stress Questionnaire Feeling of Stress : To some extent Social Connections: Unknown (04/28/2024) Social Connection and Isolation Panel [NHANES] Frequency of Communication with Friends and Family: Once a week Frequency of Social Gatherings with Friends and Family: Once a week Attends Anabaptist Services: Patient unable to answer Active Member [...] 120 (*) Narrative: Performed by: Pam Alvarado [facility], [address] [place] [address] CLIA ID: [id number] CBC WITH AUTO DIFFERENTIAL - Normal Auto [...] from admission for further hydration and monitoring. [facility] contacted to evaluate for admission. to accept. Patient to be admitted. Diagnoses as of 05/28/24 1153 Metabolic acidosis HFrEF (heart failure with reduced ejection fraction) ([facility]) CONSULTS: None hepatic function panel PROCEDURES: Unless otherwise noted below, none Procedures FINAL IMPRESSION 1. Metabolic acidosis 2. HFrEF (heart failure with reduced ejection fraction) ([facility]) DISPOSITION/PLAN DISPOSITION Admit 05/28/2024 11:46:07 AM PATIENT [...] 05/28/2024 7:59 AM EST Emergency Department Encounter [facility] ED Patient: Carlo Medina : 1980 [...] he takes every day. documented in this [facility]11-29-2024 Emergency department Triage note* Michelle Potter RN [...] takes lasix which he takes every day. [facility] [id number] Physician Emergency department Note* Chas Torres MD - 05/28/2024 7:59 AM EST [facility] ED EMERGENCY DEPARTMENT ENCOUNTER Pt Name: Carlo [...] min Stress: No Stress Concern Present (04/28/2024) [employer]ational Health - Occupational Stress Questionnaire Feeling of Stress : Not at all Recent Concern: Stress - Stress Concern Present (02/28/2024) [employer] Occupational Health - Occupational Stress Questionnaire Feeling of Stress : To some extent Social Connections: Unknown (04/28/2024) Social Connection and Isolation Panel [NHANES] Frequency of Communication with Friends and Family: Once a week Frequency of Social Gatherings with Friends and Family: Once a week Attends Anabaptist Services: Patient unable to answer Active Member [...] 120 (*) Narrative: Performed by: Pam Alvarado [facility], [address] [place] [id number] CLIA ID: [id number] CBC WITH AUTO DIFFERENTIAL - Normal Auto [...] from admission for further hydration and monitoring. [facility] contacted to evaluate for admission. to accept. Patient to be admitted. Diagnoses as of 05/28/24 1153 Metabolic acidosis HFrEF (heart failure with reduced ejection fraction) ([facility]) CONSULTS: None hepatic function panel PROCEDURES: Unless otherwise noted below, none Procedures FINAL IMPRESSION 1. Metabolic acidosis 2. HFrEF (heart failure with reduced ejection fraction) ([facility]) DISPOSITION/PLAN DISPOSITION Admit 05/28/2024 11:46:07 AM PATIENT [...] Martins MD at 05/28/2024 12:21 PM EST [facility] [id number] Physician Emergency department Note* Izaiah Martins MD - 05/28/2024 7:59 AM EST Emergency Department Encounter [facility] ED Patient: Carlo Medina : 1980 [...] [employer] Izaiah Martins MD 05/28/24 [address] Phone: [phone]) 784-879311-06-2024 Telephone encounter Note* Telephone Encounter - Dia Gaitan RN - 05/05/2024 10:00 AM EST cake stripper: As pt called on Friday afternoon with CP, attempted to call [facility] ([phone]) for update on HCAP status but was informed that this dept could not assist. Discussed with Ben Berger [facility] JOZEF who suggested speaking with [facility] Financial Assistance 05/05: According to [facility] Genometry Assistance, pt does not have an application pending. Marcus Carroll, Property Worker assisting to find a contact at [facility] for an update. 05/10: Still no word on a [facility] contact. Attempting to find contact through Marcus Carroll and Marcus Rubio of [facility] Customer Service. 05/17: No update. Sent request to Property Worker team. 05/19: Received notification from Mckayla Ray from [facility], it appears current HCAP application isstill pending. 05/31: Pt rehospitalized for ADHF. Message sent to Rayna Carroll check status who reports HCAP (denied 05/19/24) cannot be approved until a formal MD denial is received --> dept now looking to track down pt's Medicaid Notice of Action. Notified by [facility] that [facility] screened the patient over income for Medicaid, but did not assist with a Medicaid application for denial. [facility] to go see patient today and have him sign forms to apply for Medicaid for denial so HCAP application can be processed. Will continue to follow. [facility] [id number] Miscellaneous Notes* Telephone Encounter - Dia Gaitan RN - 05/05/2024 10:00 AM EST cake stripper: As pt called on Friday afternoon with CP, attempted to call Billing ([phone]) for update on HCAP status but was informed that this dept could not assist. Discussed with Ben Berger [facility] SW who suggested speaking with [facility] Financial Assistance 05/05: According to [facility] Financial Assistance, pt does not have an application pending. Marcus Carroll, Property Worker assisting to find a contact at [facility] for an update. 05/10: Still no word on a [facility] contact. Attempting to find contact through Marcus Carroll and Marcus Rubio of [facility] Customer Service. 05/17: No update. Sent request to Property Worker team. 05/19: Received notification from Mckayla Ray from [facility], it appears current HCAP application isstill pending. 05/31: Pt rehospitalized for ADHF. Message sent to Rayna Carroll check status who reports HCAP (denied 05/19/24) cannot be approved until a formal MD denial is received --> dept now looking to track down pt's Medicaid Notice of Action. Notified by [facility] that [facility] screened the patient over income for Medicaid, but did not assist with a Medicaid application for denial. [facility] to go see patient today and have him sign forms to apply for Medicaid for denial so HCAP application can be processed. Will continue to follow. documented in this [facility]11-01-2024 Telephone encounter Note* Telephone Encounter - Sergei Astudillo MD - 04/30/2024 4:31 PM EDT Spoke with patient. Patient still describes burning chest pain. No pressure, aching, SOB, or new symptoms. Low concern for cardiac chest pain based on recent admission and descriptions. Encouraged to continue cardiac meds and gave ER precautions for cardiac chest pain. Seregi Astudillo MD Department of Cardiovascular Disease, Division of Heart Failure [facility] [employer] Work Phone: 1([phone]) 801-429811-01-2024 Miscellaneous Notes* Telephone Encounter - Sergei Astudillo [...] of Cardiovascular Disease, Division of Heart Failure [facility] documented in this encounterSBarnesville HospitalPvthrp41-84-6020 Telephone encounter Note* Telephone Encounter - Dia Gaitan RN - 04/30/2024 3:56 PM EDT HF cake stripper: Received notification from [facility] dental secretary that pt on the phone reporting CP. Pt hasbeen unable to establish with a PCP or HFC as he is uninsured. HCAP application pending. Just discharged on 04/28- seen by Dr. Astuidllo during admission for a/c HFrEF. Call to [...] me today or tomorrow. Dr. Astudillo updated. [facility] HospitalWcdrir54-38-8817 Miscellaneous Notes* Telephone Encounter - Dia Gaitan RN - 04/30/2024 3:56 PM EDT HF cake stripper: Received notification from [facility] dental secretary that pt on the phone reporting [...] tomorrow. Dr. Astudillo updated. documented in this [facility]10-31-2024 Telephone encounter Note* Telephone Encounter - Dia Gaitan RN - 04/29/2024 10:04 AM EDT cake stripper: Confirmed with [facility] that pt able to be scheduled once HCAP is approved. Call to [employer] ([phone]) to discuss pending HCAP application which was completed on 04/28. Per Billing, application should be processed within 4-6 weeks max. Pt still without PCP and previously declinedscheduling in the [facility]. Pt is a high readmission risk, has been admitted 3x for HF since February. Will continue to follow chart and schedule HFC follow up as soon as able. [facility] HospitalNmzjok28-79-6934 Miscellaneous Notes* Telephone Encounter - Dia Gaitan RN - 04/29/2024 10:04 AM EDT cake stripper: Confirmed with [facility] that pt able to be scheduled once HCAP is approved. Call to [employer] ([phone]) to discuss pending HCAP application which was completed on 04/28. Per Billing, application should be processed within 4-6 weeks max. Pt still without PCP and previously declinedscheduling in the [facility]. Pt is a high readmission risk, has been admitted 3x for HF since February. Will continue to follow chart and schedule HFC follow up as soon as able. documented in this [facility]10-30-2024 Miscellaneous Notes* Care Coordination - MICHAEL Addison - 04/28/2024 3:06 PM EDT CDU SW follow up. Communicated with Christian from [facility]. Financial screening completed with patient this afternoon. Patient was over income for Medicaid program. [facility] referred patient to Hospital Care Assurance Program; application completed and submitted. HCAP will assist with current [facility] and other [facility] encounters for up to 3 months if approved. HCAP will not assist with home going prescriptions. * Care Coordination - MICHAEL Addison - 04/28/2024 1:50 PM EDT CDU SW follow up. Patient discussed in morning rounds with CDU provider, staff nuclear weapons officer and TCC. Patient uninsured. SW reached out to [facility] instruments sales representative Christian to determine if agency received referral from [facility] Highway Construction Inspector (FC) to see patient/complete financial screening. Per [facility], agencyhas not received referral. SW reached out to [facility] Highway Construction Inspector Jose to review. After review, FC decided to refer to [facility] this afternoon. Await outcome of [facility]'s financial screening. Per CDU provider, patient may be released this afternoon. Provider concerned about patient's ability to pay for home-going meds. Good Rx card given to CDU provider who will pass on to patient. Pending outcome of [facility]'s financial screening and cost of prescriptions, patient may be eligible for medication assistance through [facility]'s Indigent Fund. SW following. * Care Coordination - Dia Gaitan RN - 04/28/2024 10:00 AM EDT HF cake stripper: Chart reviewed. Pt receiving treatment for acute on chronic HFrEF. Pt newly diagnosed with HFrEF in 02/2024 and has been unable to attend any follow up d/t lack of insurance coverage and inability to self pay. Since diagnosis, multiple unsuccessful attempts have beenmade by this RN to connect pt with SW in the [facility] and to confirm insurance status. - Spoke [...] Practice Guidelines and references available on the [employer] Heart Failure resource page (Resources --> [facility] --> Heart Failure) Established Denture Processor: None Follow up scheduled within 14 days: TBD- pending insurance/financial assistance. Recommend HF ISAAC. LVEF evaluation within the past 12 months: Yes NYHA class documentation by provider: Yes HF order set used: Yes Daily weight ordered:Yes Intake and output ordered: Yes HF education added: Yes HF care plan added: Yes Class 1 HFrEF GDMT (Treatment pathway available on [employer] Heart Failure resource page) LURCECIA/ARB/ARNI: Yes, losartan 100mg daily BB: Yes, carvedilol 6.25mg BID MRA: Yes, spironolactone 25mg daily SGLT2-I: No- if financial assistance able to be obtained for follow up and medications, recommend dapagliflozin 10mg daily (HFrEF, per last Cardiology note- probable CKD) Diuretic: Yes, 60mg IV lasix BID (COMSEC MANAGER 80mg furosemide daily) If pt has been [...] / present: No IV Venofer recommended: TBD MUSIC COORDINATOR-D Appropriateness Screen (Referral pathway available on [facility] Heart Failure resource page) LVEF < 35%: [...] these barriers include n/a. documented in this [facility]10-30-2024 Note* Care Coordination - MICHAEL Addison - 04/28/2024 3:06 PM EDT CDU SW follow up. Communicated with Christian from [employer]. Financial screening completed with patient this afternoon. Patient was over income for Medicaid program. [facility]; application completed and submitted. HCAP will assist with current hospitalizat ion and other [facility] hospital encounters for up to 3 months if approved. HCAP will not assist with home going prescriptions. [facility] [id number] Note* Care Coordination - MICHAEL Addison - 04/28/2024 3:06 PM EDT CDU SW follow up. Communicated with Christian from [employer]. Financial screening completed with patient this afternoon. Patient was over income for Medicaid program. [facility]; application completed and submitted. HCAP will assist with current [facility] and other [facility] hospital encounters for up to 3 months if approved. HCAP will not assist with home going prescriptions. [facility] [id number] Nurse Note* Jillian Ferguson RN - 04/28/2024 3:02 PM EDT Discharge instructions given to and reviewed in detail with patient and his significant other. Patient verbalized understanding of all discharge instructions, all questions answered at the best of myability at this time. [facility] [id number] Nurse Note* Jillian Ferguson RN - 04/28/2024 3:02 PM EDT Discharge instructions given to and reviewed in detail with patient and his significant other. Patient verbalized understanding of all discharge instructions, all questions answered at the best of myability at this time. * Jillian Ferguson RN - 04/28/2024 10:09 AM EDT Notified Karrie AUTOMAT WATCHER CDU patient reported 2/10 chest pain, STAT EKG obtained. Karrie read EKG and stated it's okay, chronic findings. Administer nitroglycerin prn and morphine prn. documented in this [facility]10-30-2024 Consult note* MICHAEL Addison - 04/28/2024 2:09 PM EDTAssociated Order(s): IP CONSULT TO SOCIAL WORK SW consult received today from Dia Gaitan RN, Uninsured, unable to pay out of pocket for follow up appointments- was denied MD in Feb because did not provide pay stubs. See SW progress note(s). [facility] [id number] [facility]10-30-2024 Consult note* MICHAEL Addison - 04/28/2024 [...] AM EDTAssociated Order(s): IP CONSULT TO CARDIOLOGY [facility] [facility] Cardiology /Electrophysiology Consult Note Reason for Consult/Chief Complaint: CHF Referring provider: Dr. Maya Established solvent plant treater: None History of Present Illness: Carlo Medina [...] D-dimer, [place] [address] [place]/mL. CTA was negative for PE, but [...] with cardiology outpatient--would like to establish near [place], [place]--and does not have PCP due to lack of health insurance and is currently in process of trying to enroll into Medicaid. Assessment/Plan HF NYHA Class [] I [x] II [] III [] IV []Unable to assess Heart failure with reduced ejection fraction Hypertension; uncontrolled - Echo from 02/29/2024 shows EF 30%, global hypokinesis, diastolic dysfunction, normal IVC. [place] [address] pg/mL (~9,000 during 02/2024 admission) and pleural [...] thereafter - Establish with outpatient cardiology (near [place]). Social work following to help patient acquire [...] of Cardiovascular Disease, Division of Heart Failure [facility] [place] 4:05 PM 04/28/24 documented in this [facility]10-30-2024 Note* Care Coordination - MICHAEL Addison - 04/28/2024 1:50 PM EDT CDU SW follow up. Patient discussed in morning rounds with CDU provider, staff nuclear weapons officer and TCC. Patient uninsured. [facility] Christian to determine if agency received referral from [facility] Highway Construction Inspector (FC) to see patient/complete financial screening. Per [facility], agencyhas not received referral. SW reached out to [facility] Highway Construction Inspector Jose to review. After review, FC decided to refer to [facility] this afternoon. Await outcome of [facility]'s financial screening. Per CDU provider, patient may be released this afternoon. Provider concerned about patient's ability to pay for home-going meds. Good Rx card given to CDU provider who will pass on to patient. Pending outcome of [facility]'s financial screening and cost of prescriptions, patient may be eligible for medication [facility] SW following. [facility] [id number] Note* Care Coordination - MICHAEL Addison - 04/28/2024 1:50 PM EDT CDU SW follow up. Patient discussed in morning rounds with CDU provider, staff nuclear weapons officer and TCC. Patient uninsured. [facility] Christian to determine if agency received referral from [facility] Highway Construction Inspector (FC) to see patient/complete financial screening. Per [facility], agencyhas not received referral. SW reached out to [facility] Highway Construction Inspector Jose to review. After review, FC decided to refer to [facility] this afternoon. Await outcome of [facility]'s financial screening. Per CDU provider, patient may be released this afternoon. Provider concerned about patient's ability to pay for home-going meds. Good Rx card given to CDU provider who will pass on to patient. Pending outcome of [facility]'s financial screening and cost of prescriptions, patient may be eligible for medication assistance [facility] [employer]. SW following. [facility] [id number] Hospital Discharge instructions* Discharge Instructions* Dia Gaitan RN - 04/28/2024 10:28 AM EDT My Heart Failure Action Plan Use the below chart as a guide for daily symptom monitoring after you obtain your morning weight. My Denture Processor: [facility] Cardiology [phone] My Diagnosis: Heart failure with reduced ejection fraction My Ejection Fraction: ~30% in 02/2024 NORMAL 50-65% My Exercise Goal: as tolerated My Weight Goal: Standing weight day of hospital discharge Weigh yourself daily using the same scale. If you gain more than 3 pounds in 24 hours or 5 pounds in a week Call your Denture Processor!! My Diet Goal: General diet recommendations for [...] Everywhere. * Heart Failure Discharge Instructions, Adult (Filipino) documented in this [facility]10-30-2024 Nurse Note* Jillian Ferguson RN - 04/28/2024 10:09 AM EDT Notified Karrie AUTOMAT WATCHER CDU patient reported 2/10 chest pain, STAT EKG obtained. Karrie read EKG and stated it's okay, chronic findings. Administer nitroglycerin prn and morphine prn. [facility] HospitalLqqdlb75-54-6335 Note* Care Coordination - Dia Gaitan RN - 04/28/2024 10:00 AM EDT HF cake stripper: Chart reviewed. Pt receiving treatment for acute on chronic HFrEF. Pt newly diagnosed with HFrEF in 02/2024 and has been unable to attend any follow up d/t lack of insurance coverage and inability to self pay. Since diagnosis, multiple unsuccessful attempts have beenmade by this RN to connect pt with SW in the [facility] [place] and to confirm insurance status. - Spoke [...] Practice Guidelines and references available on the [employer] Heart Failure resource page (Resources --> [facility] --> Heart Failure) Established Denture Processor: None Follow up scheduled within 14 days: TBD- pending insurance/financial assistance. Recommend HF ISAAC. LVEF evaluation within the past 12 months: Yes NYHA class documentation by provider: Yes HF order set used: Yes Daily weight ordered:Yes Intake and output ordered: Yes HF education added: Yes HF care plan added: Yes Class 1 HFrEF GDMT (Treatment pathway available on [employer] Heart Failure resource page) LUCRECIA/ARB/ARNI: Yes, losartan 100mg daily BB: Yes, carvedilol 6.25mg BID MRA: Yes, spironolactone 25mg daily SGLT2-I: No- if financial assistance able to be obtained for follow up and medications, recommend dapagliflozin 10mg daily (HFrEF, per last Cardiology note- probable CKD) Diuretic: Yes, 60mg IV lasix BID (COMSEC MANAGER 80mg furosemide daily) If pt has been [...] / present: No IV Venofer recommended: TBD MUSIC COORDINATOR-D Appropriateness Screen (Referral pathway available on [employer] Heart Failure resource page) LVEF < 35%: Yes, pt will require LVEF reassessment after ~ 90 days of optimal GDMT +probable ischemic evaluation. Cardiac Rehab - N/A, uninsured Heart Failure Triggers for Consult to Palliative Care > 2 admissions in the last 12 months for ADHF: Yes [facility] HospitalOnledb92-73-2797 Note* Care Coordination - Dia Gaitan RN - 04/28/2024 10:00 AM EDT HF cake stripper: Chart reviewed. Pt receiving treatment for acute on chronic HFrEF. Pt newly diagnosed with HFrEF in 02/2024 and has been unable to attend any follow up d/t lack of insurance coverage and inability to self pay. Since diagnosis, multiple unsuccessful attempts have beenmade by this RN to connect pt with SW in the [facility] [place] and to confirm insurance status. - Spoke [...] Practice Guidelines and references available on the [employer] Heart Failure resource page (Resources --> [facility] --> Heart Failure) Established Denture Processor: None Follow up scheduled within 14 days: TBD- pending insurance/financial assistance. Recommend HF ISAAC. LVEF evaluation within the past 12 months: Yes NYHA class documentation by provider: Yes HF order set used: Yes Daily weight ordered:Yes Intake and output ordered: Yes HF education added: Yes HF care plan added: Yes Class 1 HFrEF GDMT (Treatment pathway available on [employer] Heart Failure resource page) LUCRECIA/ARB/ARNI: Yes, losartan 100mg daily BB: Yes, carvedilol 6.25mg BID MRA: Yes, spironolactone 25mg daily SGLT2-I: No- if financial assistance able to be obtained for follow up and medications, recommend dapagliflozin 10mg daily (HFrEF, per last Cardiology note- probable CKD) Diuretic: Yes, 60mg IV lasix BID (COMSEC MANAGER 80mg furosemide daily) If pt has been [...] / present: No IV Venofer recommended: TBD MUSIC COORDINATOR-D Appropriateness Screen (Referral pathway available on [facility] Heart Failure resource page) LVEF < 35%: Yes, pt will require LVEF reassessment after ~ 90 days of optimal GDMT +probable ischemic evaluation. Cardiac Rehab - N/A, uninsured Heart Failure Triggers for Consult to Palliative Care > 2 admissions in the last 12 months for ADHF: Yes [facility] HospitalKsgjqe95-17-5565 [facility]10-30-2024 Consult note* Rupesh Troy MD - 04/28/2024 8:42 AM EDTAssociated Order(s): IP CONSULT TO CARDIOLOGY [facility] [place] [facility] [facility] Cardiology /Electrophysiology Consult Note Reason for Consult/Chief Complaint: CHF Referring provider: Dr. 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 CTA was negative for PE, but [...] with cardiology outpatient--would like to establish near [place], [place]--and does not have PCP due to lack of health insurance and is currently in process of trying to enroll into Medicaid. Assessment/Plan HF NYHA Class [] I [x] II [] III [] IV []Unable to assess Heart failure with reduced ejection fraction Hypertension; uncontrolled - Echo from 02/29/2024 shows EF 30%, global hypokinesis, diastolic dysfunction, normal [place] [address] pg/mL (~9,000 during 02/2024 admission) and pleural [...] thereafter - Establish with outpatient cardiology (near [place]). Social work following to help patient acquire [...] results found for: LDLCHOLESTER Recent Labs 04/28/24 033 BNP 10,500* No results for input(s): INR [...] of Cardiovascular Disease, Division of Heart Failure [facility] [place] 4:05 PM 04/28/24 [facility] Work Phone: 1(143) 626-404410-30-2024 Plan of care note* Care Plan - [...] Recommendations to address these barriers include n/a. [facility] HospitalVvqvnl87-38-4611 Emergency department Note* Regina Hogan RN - 04/28/2024 6:51 AM EDT Phoned [facility] CDU. Hand off report given. [facility] HospitalDylgvt34-48-3150 Emergency department Note* Regina Hogan RN - 04/28/2024 6:51 AM EDT Phoned [facility] CDU. Hand off report given. * Regina Hogan RN - 04/28/2024 6:37 AM EDT Phoned [facility] ED. No answer. * Regina Hogan [...] 30 min Stress: Stress Concern Present (02/28/2024) [employer]ational [employer] - Occupational Stress Questionnaire Feeling of Stress : To some extent Social Connections: Unknown (02/28/2024) Social Connection and Isolation Panel [NHANES] Frequency of Communication with Friends and Family: Once a week Frequency of Social Gatherings with Friends and Family: Once a week Attends Anabaptist Services: Patient unable to answer Active Member [...] able to answer questions and follow commands physiognomist II-XII normal Normal 5/5 strength and normal [...] In compliance with this authorization, please visit www.fda.gov/media/685474/download or www.fda.gov/media/976005/download to access the applicable information sheets. GROUP [...] of the abdomen. This gives him a [facility] thoracic aortic dissection screening [...] external records from past medical records in [facility] to obtain collateral history. The patient will [...] or greater than the risk of discharge. [id number] SHARED DECISION MAKING: I discussed my risk assessment with the patient. The patient understands and consents to the risk of disposition/plan, as well as the risk of uncertainty in estimating outcomes. [id number] PROCEDURES: Unless otherwise noted below, none Procedures EKG: I read and interpreted this EKG. My interpretation can be found in the opvizor EKG system. EKG shows NSR, LAD, normal [place] QRS and QTC intervals. LVH. ST depressions [...] 0.020 [place] [address]. This is higher than the patient's other [...] and SOB that startedat 2100 yesterday. Pain 1010 and feels like pressure. Patient states he has had a non-productive cough for a couple weeks. Patient started with a sore throat yesterday also. Respirations even and unlabored. Patient A&O x4. EKG, IV and labs done upon arrival. Patient placed on gambling monitor. documented in this [facility]10-30-2024 Emergency department Note* Regina Hogan RN - 04/28/2024 6:37 AM EDT Phoned [facility] ED. No answer. [facility] HospitalGvjfhk81-38-1679 Emergency department Note* Regina Hogan RN - 04/28/2024 6:33 AM EDT Patient signed transfer papers and instructions given to patient and significant other. Patient traveling by private vehicle. IV wrapped in coban. [address]Itjeph84-14-6575 Emergency department Triage note* Regina Hogan RN [...] labs done upon arrival. Patient placed on gambling monitor. [place]10-30-2024 Physician Emergency department Note* Juan Carlos Le [...] 30 min Stress: Stress Concern Present (02/28/2024) [employer] Occupational Health - Occupational Stress Questionnaire Feeling of Stress : To some extent Social Connections: Unknown (02/28/2024) Social Connection and Isolation Panel [NHANES] Frequency of Communication with Friends and Family: Once a week Frequency of Social Gatherings with Friends and Family: Once a week Attends Anabaptist Services: Patient unable to answer Active Member [...] able to answer questions and follow commands physiognomist II-XII normal Normal 5/5 strength and normal [...] In compliance with this authorization, please visit www.fda.gov/media/671207/download or www.fda.gov/media/648742/download to access the applicable information sheets. GROUP [...] and DIFFERENTIAL DIAGNOSIS/MDM: Vitals: Vitals: 04/28/24 0239 04/28/2443 04/28/24 0545 BP: (!) 130/102 (!) 159/114 [...] of the abdomen. This gives him a [facility] thoracic aortic dissection screening [...] external records from past medical records in [facility] to obtain collateral history. The patient will [...] or greater than the risk of discharge. [id number] SHARED DECISION MAKING: I discussed my risk assessment with the patient. The patient understands and consents to the risk of disposition/plan, as well as the risk of uncertainty in estimating outcomes. [id number] PROCEDURES: Unless otherwise noted below, none Procedures EKG: I read and interpreted this EKG. My interpretation can be found in the opvizor EKG system. EKG shows NSR, LAD, normal [place] QRS and QTC intervals. LVH. ST depressions [...] 0.020 [place] [address]. 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 Pt with a new diagnosis of HFrEF in 02/2024 and has not been able to follow up with Cardiology d/t lack of insurance and inability to self-payfor appt. Per pt report, MD application was filled out mid-February. HFN attempted previously to get pt an appt with the [facility] [place] to work with SW and pt declined. Left HIPAA compliant VM requesting a return call to discuss. 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 Pt with a new diagnosis of HFrEF in 02/2024 and has not been able to follow up with Cardiology d/t lack of insurance and inability to self-payfor appt. Per pt report, MD application was filled out mid-February. HFN attempted previously to get pt an appt with the [facility] [place] to work with SW and pt declined. Left HIPAA compliant VM requesting a return call to discuss. documented in this encounterSBarnesville HospitalIilavl22-80-3928 Telephone encounter Note* Telephone Encounter - Sangeeta Sandhu - 04/14/2024 9:30 AM EDT LMOM requesting return call, gave [facility] phone number also [facility] HospitalKjfenk31-05-5712 Miscellaneous Notes* Telephone Encounter - Sangeeta Sandhu - 04/14/2024 9:30 AM EDT LMOM requesting return call, gave [facility] phone number also * Telephone Encounter - Sangeeta Sandhu - 03/31/2024 9:23 AM EDT Lmom return call, if no insurance yet may be seen at [facility] with Dr Conklin. Will give number [phone] if needed * Telephone Encounter - Jeffrey Conklin MD - 03/16/2024 10:58 AM EDT Will call back documented in this [facility]10-02-2024 Telephone encounter Note* Telephone Encounter - Sangeeta Sandhu - 03/31/2024 9:23 AM EDT Lmom return call, if no insurance yet may be seen at [facility] with Dr Conklin. Will give number [phone] if needed [facility] HospitalCtyrvk61-69-0437 Miscellaneous Notes* Telephone Encounter - Sangeeta Sandhu - 03/31/2024 9:23 AM EDT Lmom return call, if no insurance yet may be seen at [facility] with Dr Conklin. Will give number [phone] if needed * Telephone Encounter - Jeffrey Conklin MD - 03/16/2024 10:58 AM EDT Will call back documented in this [facility]09-17-2024 Telephone encounter Note* Telephone Encounter - Jeffrey Conklin MD - 03/16/2024 10:58 AM EDT Will call back [facility] [employer] Phone: [phone] Miscellaneous Notes* Telephone Encounter - Jeffrey Conklin MD - 03/16/2024 10:58 AM EDT Will call back documented in this encounterSBarnesville HospitalGgganv61-55-4776 Telephone encounter Note* Telephone Encounter - YAZAN Danielle - 03/08/2024 2:40 PM EDT [facility] with [facility] program until his Medicaid was active. Pt declined, stating he wants to wait untilhis Medicaid is active before scheduling a follow up. [facility] HospitalRjwibe67-40-6158 Miscellaneous Notes* Telephone Encounter - YAZAN Danielle - 03/08/2024 2:40 PM EDT [facility] [place] [facility] reached out to schedule Hospital Follow up appointment. [facility] program until his Medicaid was active. Pt declined, stating he wants to wait untilhis Medicaid is active before scheduling a follow up. * Telephone Encounter - Dia Gaitan RN - 03/08/2024 11:06 AM EDT cake stripper: Noted pt re-admitted 03/05-03/07 for ADHF. Call to pt this AM to discuss insurance coverage- was notified by [facility] office that when attempting to schedule, pt reported being self pay. Appt was not able to be scheduled. At time of this phone call, pt in the car on the way to [place] [employer] [facility] to see if currently does have active Medicaid, and if not, to complete application. Pt to return call to [facility] with update. 13:25: Call back from pt- no current Medicaid coverage, application submitted today. Pt is unable to pay out of pocket for visit with Mona Marcano NP with Cardiology on 03/11- [facility] cancelled appt. Pt also has no PCP. Pt ok with chart being forwarded to [facility] to schedule and appt to establishcare and for SW to review. If able, pt should be seen within 14 days of hospital discharge in the [facility] [place]. Once insurance obtained, pt should be scheduled in the [facility]. documented in this [facility]09-09-2024 Telephone encounter Note* Telephone Encounter - Dia Gaitan RN - 03/08/2024 11:06 AM EDT cake stripper: Noted pt re-admitted 03/05-03/07 for ADHF. Call to pt this AM to discuss insurance coverage- was notified by [facility] office that when attempting to schedule, pt reported being self pay. Appt was not able to be scheduled. At time of this phone call, pt in the car on the way to [facility] to see if currently does have active Medicaid, and if not, to complete application. Pt to return call to [facility] with update. 13:25: Call back from pt- no current Medicaid coverage, application submitted today. Pt is unable to pay out of pocket for visit with Mona Marcano NP with Cardiology on 03/11- [facility] cancelled appt. Pt also has no PCP. Pt ok with chart being forwarded to [facility] to schedule and appt to establishcare and for SW to review. If able, pt should be seen within 14 days of hospital discharge in the [facility] [place]. Once insurance obtained, pt should be scheduled in the HF. [place] [id number] Hospital Discharge instructions* Discharge Instr - Activity* [...] Primary Emergency Contact: Indira Medina Mobile Relation: Secondary Emergency Contact: Kaitlin Hicks Mobile Relation: [...] 6.4 oz) Mental Status: {ROBERT Patient Mental Status:94026} IV Access: {ROBERT IV Access:93940} Nursing Mobility/ADLs: Walking {EMELY ADL:::Independent} Transfer {EMELY ADL:::Independent} Bathing {EMELY ADL:::Independent} Dressing {EMELY ADL:::Independent} Toileting {EMELY ADL:::Independent} Feeding {EMELY ADL:::Independent} Greaser And Oiler {EMELY ADL:::Independent} Med Delivery {yes/no:39684} Wound Care Documentation and Therapy: Elimination: Continence: Bowel: {yes/no:64869} Bladder: {yes/no:} Urinary Catheter: {ROBERT Urinary Catheter:49174} Colostomy/Ileostomy/Ileal Conduit: {YES / NO:} Date of Last BM: Intake/Output Summary (Last 24 hours) at 03/07/2024 1326 Last data filed at 03/07/2024 0634 Gross per 24 hour Intake 250 ml Output 1125 ml Net -875 ml I/O last 3 completed shifts: In: 550 (6.5 mL/kg) [P.O.:550] Out: 2375 (28.1 mL/kg) [Urine:2375 (0.8 mL/kg/hr)] Weight: 84.5 kg Safety Concerns: {ROBERT Safety Concerns:63861} Impairments/Disabilities: {ROBERT Impairments/Disabilities:52503} Nutrition Therapy: Current Nutrition Therapy: {ROBERT Diet List:20759} Routes of Feeding: {routes of feedin} Liquids: {liquid consistency:14751} Daily Fluid Restriction: {daily fluid restriction:14301} Last Modified Barium Swallow with Video (Video Swallowing Test): {done not done:19412} Treatments at the Time of Hospital Discharge: Respiratory Treatments: Oxygen Therapy: {Therapy; copd oxygen:40238} Ventilator: {ROBERT Ventilator:55932} Rehab Therapies: {GEN THERAPY DISCIPLINE SCAL:0971180} Weight Bearing Status/Restrictions: {POD WEIGHT BEARIN} Other Medical Equipment (for information only, NOT a DME order): {Assistive Devices DME:45008} Other Treatments: Patient's personal belongings (please select all that are sent with patient): {ROBERT Patient Belongings:99935} RN SIGNATURE: {E-signature:62891} CASE MANAGEMENT/SOCIAL WORK SECTION Inpatient Status Date: Discharging to Facility/ Agency Name: Address: Phone: Fax: Dialysis Facility (if applicable) Name: Address: Dialysis Schedule: Phone: Fax: Career Resource Specialist/Reviewer Sales signature: {E-signature:44723} PHYSICIAN SECTION Name: Carlo Medina Prognosis: {Rehab Prognosis:99085} Condition at Discharge: {Patient Condition:12328} Rehab Potential (if transferring to Rehab): {Rehab Prognosis:53797} Recommended Labs or Other Treatments After Discharge: The individual is being admitted to a nursing facility directly from an [facility] or a unit [facility] that is not operated by or licensed by [facility] under section 5119.14 or 5160-3-15.1 5 The individual requires the level of services provided by a nursing facility for the condition for which he or she was treated in the hospital and, Physician Certification: I certify the above information and transfer of Carlo Medina is necessary for the continuing treatment of the diagnosis listed and that he requires {ROBERT Level of Care:54139} for {greater less than:07986} 30 days. Update Admission H&P: {ROBERT Changes in H&P:58239} PHYSICIAN SIGNATURE: {E-signature:67944} documented in this [facility]09-08-2024 Consult note* Tahmina Berg RD - 03/07/2024 [...] +appetite/ tolerating meals at this time. Diet Facilities Clerk to monitor and follow up Tahmina Berg RD Contact Number: *[phone] or via Secure Chat [facility] HospitalDnwown05-56-8737 Consult note* Tahmina Berg RD - 03/07/2024 [...] +appetite/ tolerating meals at this time. Diet Facilities Clerk to monitor and follow up Tahmina Berg RD Contact Number: *[phone] or via Secure Chat * Jeffrey Conklin MD - 03/06/2024 1:11 PM EDTAssociated Order(s): IP CONSULT TO CARDIOLOGY Images from the original note were not included. [facility] [address] [place] [address] Dept: [phone] 44-year-old man seen for newly diagnosed heart [...] is generally preferred. RBC documented in this [facility]09-08-2024 [facility] 03-07-2024 Hospital course Narrative* Guadalupe Celaya [...] Your Medications These medications were sent to [facility]/pharmacy [address] [place] [address] carvedilol 6.25 MG tablet furosemide 80 MG tablet losartan 100 MG tablet rosuvastatin 10 MG tablet spironolactone 25 MG tablet DIET: Adult diet Regular; Low Sodium (2 gm) ACTIVITY: No restriction. COMPLEXITY OF FOLLOW UP: [x] Moderate Complexity: follow up within 7-14 calendar days (00951) [] Severe Complexity: follow up within 7 calendar days (17715) FOLLOW UP TESTING, PENDING RESULTS OR REFERRALS [...] MD 03/07/2024, 1:09 PM documented in this [facility]09-08-2024 Plan of care note* Care Plan - Ruby Powers RN - 03/07/2024 12:18 PM EDT The patient is Moderately Stable - Low risk of patient condition declining or worsening The patient's goals for the shift include rest The clinical goals for the shift include comfort [facility] HospitalAfrydw58-45-3829 Miscellaneous Notes* Care Plan - Ruby Powers [...] these barriers include . documented in this [facility]09-08-2024 History of Present illness Narrative* Jeffrey Conklin MD - 03/07/2024 12:04 PM EDT Images from the original note were not included. [facility] [address] [facility] [place] [address] Dept: [phone] This is a 44-year-old man that we [...] go home today. RBC documented in this encounterSBarnesville HospitalIjqhxw17-17-5089 Plan of care note* Care Plan - [...] Recommendations to address these barriers include . [facility] HospitalIykyth82-96-6066 Consult note* Jeffrey Conklin MD - 03/06/2024 1:11 PM EDTAssociated Order(s): IP CONSULT TO CARDIOLOGY Images from the original note were not included. [facility] U [address] [place] [address] Dept: [phone] 44-year-old man seen for newly diagnosed heart [...] a coronary CTA is generally preferred. RBC [facility] HospitalNbulxd12-30-3485 History and physical note* Guadalupe Celaya MD [...] 30 min Stress: Stress Concern Present (02/28/2024) [employer]ational Health - Occupational Stress Questionnaire Feeling of Stress : To some extent Social Connections: Unknown (02/28/2024) Social Connection and Isolation Panel [NHANES] Frequency of Communication with Friends and Family: Once a week Frequency of Social Gatherings with Friends and Family: Once a week Attends Anabaptist Services: Patient unable to answer Active Member [...] RDW 11.7 PLT 313 BMP: Recent Labs 03/05/243 NA 138 K 3.9 CL 104 CO2 25 BUN 22* CREATININE 1.65* GLUCOSE 103* CALCIUM 8.9 ANIONGAP 9 LIVER PROFILE:No results for input(s): AST, ALT, BILITOT, ALKPHOS, PROT in the last 72 hours. No lab exists for component: LABALBU PT/INR: No results for input(s): PROTIME, INR in the last 72 hours. CARDIAC ENZYMES: Recent Labs 03/05/243 TROPONINI 0.019 Procalcitonin: No results found for: [...] - DO NOT do CPR, intubation] [_] [DNR-FULL STACK WEB DEVELOPER - Comfort care only] [_] DNR form [...] Guadalupe Celaya MD Division of Hospitalist Medicine [facility] HospitalKdgces30-84-8497 [facility]09-07-2024 History and physical note* Guadalupe Celaya [...] suddenly. Denied any new onset chest pain. Saidsonny has taken off his medication as prescribed [...] 30 min Stress: Stress Concern Present (02/28/2024) [employer] - Occupational Stress Questionnaire Feeling of Stress : To some extent Social Connections: Unknown (02/28/2024) Social Connection and Isolation Panel [NHANES] Frequency of Communication with Friends and Family: Once a week Frequency of Social Gatherings with Friends and Family: Once a week Attends Anabaptist Services: Patient unable to answer Active Member [...] - DO NOT do CPR, intubation] [_] [DNR-FULL STACK WEB DEVELOPER - Comfort care only] [_] DNR form [...] Guadalupe Celaya MD Division of Hospitalist Medicine [facility] documented in this encounterSBarnesville HospitalXxokko89-21-5227 Emergency department Note* Pauline Martinez RN - 03/06/2024 8:23 AM EDT Called [facility] to inform of pt refusing to go by squad and wants to go private vehicle. Pauline Martinez RN 03/06/24 0824 [facility] HospitalGkmdex16-48-3119 Emergency department Note* Pauline Martinez RN - 03/06/2024 8:23 AM EDT Called [facility] to inform of pt refusing to go by squad and wants to go private vehicle. Pauline Martinez RN 03/06/24823 * Shane Stern MD - 03/05/2024 9:43 PM EDT Emergency Department Encounter [facility] ED Patient: Carlo Medina : 1980 [...] calf pain, he endorses recent travel to [place], denies history of DVT or PE, denies [...] with IV Lasix, plan for admission at [facility] for further management, discussed with admitting [...] for clarification. Shane Stern MD Acute Care [facility] Shane Stern MD 03/06/24 0512 * Aicha Hsieh RN - 03/05/2024 9:43 PM EDT 44 m to ED c/o sob since 7pm. Pt reports he was seen at [facility] for same complaints lastweek. Was d/c'd Friday [...] Dias RN 03/06/24 0830 documented in this [facility]09-06-2024 Emergency department Note* Marycarmen Dias RN - 03/05/2024 9:43 PM EDT Upon signing transfer for, pt states he was informed by prior nurse that he could be driven by private car. Pt is informed that as he is on oxygen and continuous cardiac monitoring, squad transfer isrecommended. Physician is updated and aware and now at bedside. Marycarmen Dias RN 03/06/24 0808 [facility] HospitalSjtthj61-35-2941 Emergency department Note* Marycarmen Dias RN - 03/05/2024 9:43 PM EDT Pt removed by physician with sats maintained. Per Dr. Julien, pt is permitted to be driven by private car. IV access maintained intact in right AC with a coban wrap Marycarmen Dias RN 03/06/24 0830 [place] [id number] Emergency department Triage note* Aicha Hsieh RN - 03/05/2024 9:43 PM EDT 44 m to ED c/o sob since 7pm. Pt reports he was seen at [facility] for same complaints lastweek. Was d/c'd Friday with new diagnosis of CHF. Pt reports SOB improved while he was up walking. Pt arrived at 88% on rm air. Placed on 3L nc. [facility] HospitalLdosxy77-33-8927 Physician Emergency department Note* Shane Stern MD - 03/05/2024 9:43 PM EDT Emergency Department Encounter [facility] ED Patient: Carlo Medina : 1980 [...] calf pain, he endorses recent travel to [place], denies history of DVT or PE, denies [...] with IV Lasix, plan for admission at [facility] for further management, discussed with admitting [...] dictating provider for clarification. Shane Stern MD [facility] Shane Stern MD 03/06/24 0447 [facility] HospitalRqybke62-83-0769 Telephone encounter Note* Telephone Encounter - Kaitlin Gonzalez LPN - 03/04/2024 10:00 AM EDT Unable to contact patient X2 [facility] HospitalQurkih65-91-3541 Miscellaneous Notes* Telephone Encounter - Kaitlin Gonzalez LPN - 03/04/2024 10:00 AM EDT Unable to contact patient X2 * Telephone Encounter - Kaitlin Gonzalez LPN - 03/02/2024 10:30 AM EDT S: Patient admitted to: [facility] 02/28/24 B: Discharged on : 03/01/24 A: Hospital follow up call initiated to discuss any medication changes, follow up appointments and discharge instructions: Shortness of breath R: No contact x 1 at : [phone] documented in this [facility]09-03-2024 Telephone encounter Note* Telephone Encounter - Kaitlin Gonzalez LPN - 03/02/2024 10:30 AM EDT S: Patient admitted to: [facility] 02/28/24 B: Discharged on : 03/01/24 A: Hospital follow up call initiated to discuss any medication changes, follow up appointments and discharge instructions: Shortness of breath R: No contact x 1 at : [phone] [facility] HospitalAxfprf08-95-6705 Nurse Note* Tamiko Live RN - 03/01/2024 1:31 PM EDT Discharge instructions given to patient and questions were addressed. Encouraged patient to follow up with cardiology and new PCP scheduled with Family Medicine. [facility] HospitalPemfvv60-82-9343 Nurse Note* Tamiko Live RN - 03/01/2024 1:31 PM EDT Discharge instructions given to patient and questions were addressed. Encouraged patient to follow up with cardiology and new PCP scheduled with Family Medicine. documented in this [facility]09-02-2024 History of Present illness Narrative* Radha Parikh [...] him to establish care. Radha Parikh MD [facility] 03/01/24 1:03 PM * Mary Ellen Brito [...] headedness, and chest tightness.In the ED at [place] was found to be hypertensive 176/123, P [...] 11.8 PLT 279 280 BMP: Recent Labs 02/28/24211102/29/248 03/01/24 0257 NA 139 136 136 K [...] Ellen Brito MD Division of Hospitalist Medicine [facility] * Mary Ellen Brito MD - [...] headedness, and chest tightness.In the ED at [place] was found to be hypertensive 176/123, P [...] Ellen Brito MD Division of Hospitalist Medicine [facility] documented in this [facility]09-02-2024 Hospital Discharge instructions* Discharge Instructions* Mary Ellen [...] Care Everywhere. * Shortness of Breath (Dyspnea) (Filipino) * DASH Diet (Filipino) * Heart Failure Exercise Guide (Filipino) * Heart Failure With Reduced Ejection Fraction (Filipino) * How to Weigh Yourself (Filipino) documented in this [facility]09-02-2024 [facility] 03-01-2024 Hospital course Narrative* Mary Ellen [...] headedness, and chest tightness.In the ED at [place] was found to be hypertensive 176/123, P [...] Your Medications These medications were sent to [facility]/pharmacy #[id number] [facility], [address] [address] clopidogrel 75 MG tablet losartan 50 MG tablet metoprolol tartrate 50 MG tablet Recommended Follow-up: Radha Parikh MD [address] [place] [address] [phone] Follow up Please call and schedule an appointment if you have not heard back from them in a week\ Complexity of Follow up: [] Moderate Complexity: follow up within 7-14 calendar days (49259) [x] Severe Complexity: follow up within 7 calendar days (55547) Follow up Testing, Pending results or Referrals [...] MD Division of Hospitalist Medicine Acute care [facility] 03/01/2024, 12:24 PM documented in this [facility]09-02-2024 Plan of care note* Care Plan - [...] Goal: Nutritional status is improving Outcome: Progressing [facility] HospitalMiljed99-96-9329 Miscellaneous Notes* Care Plan - Tamiko Live [...] Limits Permission given to speak with patient instruments sales representative/caregiver as indicated: Confirmation of Payer [...] 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 Workup at outside emergency room shows cardiomegaly [...] shift include hemodynamically stable documented in this [facility]09-02-2024 Plan of care note* Care Plan - Nirmala Hogan RN - 03/01/2024 5:10 AM EDT The patient is Moderately Stable - Low risk of patient condition declining or worsening The patient's goals for the shift include rest The clinical goals for the shift include pt education [facility] [id number] Note* Care Coordination - Olvin York RN - 02/29/2024 7:52 PM EDT Care Managment Initial Assessment Date: 02/29/2024 Patient Name: Carlo Medina : 1980 Patient Information Source of Information: Patient Cognition/Language: WFL - Within Functional Limits Permission given to speak with patient instruments sales representative/caregiver as indicated: Confirmation of Payer [...] 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 Workup at outside emergency room shows cardiomegaly [...] will continue to follow. 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 Workup at outside emergency room shows cardiomegaly [...] will continue to follow. Olvin York RN SchmoozerVmawlq56-77-8722 Plan of care note* Care Plan - Tamiko Live RN - 02/29/2024 10:33 AM EDT The patient is Moderately Stable - Low risk of patient condition declining or worsening The patient's goals for the shift include see cardiology The clinical goals for the shift include hemodynamically stable [id number] Consult note* Radha Parikh MD - 02/29/2024 [...] and now cannot drive. He lives in [place] and is completely dependent on others [...] social issues detailed above. Radha Parikh MD [facility] 02/29/24 11:39 AM [facility] HospitalIdjbzh14-55-1412 Consult note* Radha Parikh MD - 02/29/2024 [...] and now cannot drive. He lives in [facility] [place] and is completely dependent on others [...] social issues detailed above. Radha Parikh MD [facility] 02/29/24 11:39 AM documented in this [facility]08-31-2024 History and physical note* Sherri Jeter MD - 02/28/2024 11:53 PM EDT History and Physical [facility] Carlo Medina : 1980 AGE 44 y.o. YEARS Note Date 02/28/2024 Primary Care Physician:No primary care provider on file. Phone None Fax None Current Providers as of 02/28/2024 PCP: not found Referring Provider: not found, starting on Sat Feb 28, 2024 12:00 AM Admitting Provider: Sherri Jeter MD, (Active) Attending Provider: Vic Loaiza MD, starting on Sat Feb 28, 2024 6:13 PM, ending on FriFeb 28, 2024 7:01 PM (Inactive) Attending Provider: Juan Carlos Le MD, starting on FriFeb 28, 2024 7:00 PM, ending on FriFeb 28, 2024 10:06 PM (Inactive) Attending Provider: Sherri Jeter MD, starting on FriFeb 28, 2024 8:49 PM (Active) Registered Nurse: Belkys Townsend RN, starting on [facility] Feb 28, 2024 6:26 PM, ending on FriFeb 28, 2024 10:06 PM (Inactive) Registered Nurse: Randy Ulloa RN, starting on FriFeb 28, 2024 10:14 PM (Active) Registered Nurse: Nirmala Hogan RN, starting on FriFeb 28, 2024 10:50 PM (Active) Chief Complaint: [...] 02/28/2024 341 QTC Interval 02/28/2024 469 P Arden 02/28/2024 59 QRS Arden 02/28/2024 -16 T Wave Arden 02/28/2024 124 KS Interval 02/28/2024 145 D-DIMER, INNOVANCE 02/28/2024 1.45 [...] QT Interval 341 QTC Interval 469 P Arden 59 QRS Arden -16 T Wave Arden 124 KS Interval 145 Impression Sinus tachycardia Probable left [...] pharmacologic and mechanical contraindicated 02/28/2024 Carlo Medina [id number] Any scheduled follow up appointments No future appointments. Extended Emergency Contact Information Primary Emergency Contact: Indira Medina Mobile Relation: Sister Secondary Emergency Contact: Kaitlin Hicks Mobile Relation: Significant Other Portions of this note may be electronically transcribed. Please forward a copy of this H&P to the primary care physician. [facility] [employer] Work Phone: [phone] [facility]08-31-2024 History and physical note* Sherri Jeter MD - 02/28/2024 11:53 PM EDT History and Physical [facility] Carlo Shookley : 1980 AGE 44 y.o. YEARS Note Date 02/28/2024 Primary Care Physician:No primary care provider on file. Phone None Fax None Current Providers as of 02/28/2024 PCP: not found Referring Provider: not found, starting on [facility] Feb 28, 2024 12:00 AM Admitting Provider: Sherri Jeter MD, (Active) Attending Provider: Vic Loaiza MD, starting on [facility] Feb 28, 2024 6:13 PM, ending on [facility] Feb 28, 2024 7:01 PM (Inactive) Attending Provider: Juan Carlos Le MD, starting on [facility] Feb 28, 2024 7:00 PM, ending on FriFeb 28, 2024 10:06 PM (Inactive) Attending Provider: Sherri Jeter MD, starting on [facility] Feb 28, 2024 8:49 PM (Active) Registered Nurse: Belkys Townsend RN, starting on [facility] Feb 28, 2024 6:26 PM, ending on [facility] Feb 28, 2024 10:06 PM (Inactive) Registered Nurse: Randy Ulloa RN, starting on [facility] Feb 28, 2024 10:14 PM (Active) Registered Nurse: Nirmala Hogan RN, starting on [facility] Feb 28, 2024 10:50 PM (Active) Chief [...] 02/28/2024 341 QTC Interval 02/28/2024 469 P Arden 02/28/2024 59 QRS Arden 02/28/2024 -16 T Wave Arden 02/28/2024 124 [place] Interval 02/28/2024 145 D-DIMER, INNOVANCE 02/28/2024 1.45 [...] QT Interval 341 QTC Interval 469 P Arden 59 QRS Arden -16 T Wave Arden 124 KS Interval 145 Impression Sinus tachycardia Probable left [...] pharmacologic and mechanical contraindicated 02/28/2024 Carlo Shookley [id number] Any scheduled follow up appointments No future appointments. Extended Emergency Contact Information Primary Emergency Contact: Indira Medina Mobile Relation: Sister Secondary Emergency Contact: Kaitlin Hicks Mobile Relation: Significant Other Portions of this note may be electronically transcribed. Please forward a copy of this H&P to the primary care physician. documented in this [facility]08-31-2024 Emergency department Note* Belkys Townsend RN - 02/28/2024 9:[address] Le, pt ok to go to [facility] with IV in arm, 2 Jose RN aware, pt departing this facility now and instructed to go straight to [facility], as pt declined EMS transport to [facility]. 2 Jose called at this time and notified pt is on his way there. Belkys Townsend RN 02/28/242130 [facility] HospitalEhgiec65-14-9085 Emergency department Note* Belkys Townsend RN - 02/28/2024 9:[address] Le, pt ok to go to [facility] with IV in arm, 2 Jose RN aware, pt departing this facility now and instructed to go straight to [facility], as pt declined EMS transport to [facility]. 2 Jose called at this time and [...] he recently drove with a friend to [place], they did stop on the way there, [...] I, DR. JUAN CARLOS LE, AM THE LAW FIRM PARTNER OF RECORD. PATIENT WAS SIGNED OUT TO [...] while laying in bed. Pt drove to [place] on 02/13 there and back in one day. Pt states he was told a long time ago that he had high blood pressure but never followed up for it or took medicine for it and hasn't been to the doctor in a long time. Pt is hypertensive, tachypneic and tachycardic at the time of triage. documented in this [facility]08-31-2024 Emergency department Note* Belkys Townsend RN - 02/28/2024 9:17 PM EDT Report called to 2 [facility] CRISTINE Townsend RN 02/28/242116 [facility] HospitalTfuyid76-63-9742 NoteSinus tachycardia Probable left atrial enlargement Abnormal R-wave progression, late transition Left ventricular hypertrophy Abnormal T, consider ischemia, lateral leads ST elevation, consider anterior injury No old ekg available for comparison Electronically Signed On 02-28-2024 18:14:12 EDT by [facility] 02-28-2024 NoteSinus tachycardia Probable left atrial enlargement Abnormal R-wave progression, late transition Left ventricular hypertrophy Abnormal T, consider ischemia, lateral leads ST elevation, consider anterior injury No old ekg available for comparison Electronically Signed On 02-28-2024 18:14:12 EDT by [facility] 02-28-2024 Emergency department Triage note* Belkys Townsend RN - 02/28/2024 5:50 PM EDT Pt presents to ED for c/o SOB since Friday mostly at night while laying in bed. Pt drove to [place] on 02/13 there and back in one day. Pt states he was told a long time ago that he had high blood pressure but never followed up for it or took medicine for it and hasn't been to the doctor in a long time. Pt is hypertensive, tachypneic and tachycardic at the time of triage. [facility] HospitalLfdtpv04-30-8372 Physician Emergency department Note* Vic Loaiza MD [...] he recently drove with a friend to [place], they did stop on the way there, [...] Emergency Medicine Provider Vic Loaiza MD 02/28/241901 [facility] Phone: [phone]) 426-854508-31-2024 Physician Emergency department Note* Juan Carlos Le MD - 02/28/2024 5:50 PM EDT THIS NOTE CONTAINS PATIENT DISPOSITION I, DR. JUAN CARLOS LE, AM THE LAW FIRM PARTNER OF RECORD. PATIENT WAS SIGNED OUT TO [...] chest pain Juan Carlos Le MD 02/28/242052 [facility] HealthEvaluation note* Diagnosis Shortness of breath- Primary Shortness of breath Congestive heart failure, unspecified HF chronicity, unspecified heart failure type (HCC) Positive D dimer Abnormal coagulation profile Chest pain, unspecified type Hypertension, unspecified type documented in this encounter [facility]* Diagnosis Shortness of breath- Primary Shortness of breath Acute on chronic congestive heart failure, unspecified heart failure type (HCC) Hypoxia Hypoxemia Pleural effusion Unspecified pleural effusion documented in this encounter [facility]Evaluation note* Diagnosis Pulmonary vascular congestion- Primary Chest pain, unspecified type Acute cough Sore throat Acute pharyngitis Positive D dimer Abnormal coagulation profile Congestive heart failure, unspecified HF chronicity, unspecified heart failure type (HCC) Pulmonary vascular congestion Orthopnea Short of breath on exertion Congestive heart failure, unspecified HF chronicity, unspecified heart failure type (HCC) documented in this encounter [facility]Evaluation note* Diagnosis Metabolic acidosis- Primary Acidosis Metabolic acidosis Acidosis HFrEF (heart failure with reduced ejection fraction) (HCC) Acute cholecystitis without calculus Acute cholecystitis Moderate malnutrition (CMS/HCC) ([facility]) documented in this encounter [facility]Evaluation note* Diagnosis Edema of left lower extremity- Primary documented in this encounter [facility]Evaluation note* Diagnosis Essential hypertension- Primary Unspecified essential hypertension Congestive heart failure, unspecified HF chronicity, unspecified heart failure type (HCC) Elevated liver enzymes Other nonspecific abnormal serum enzyme levels Chronic kidney disease, unspecified CKD stage [facility]* Diagnosis Congestive heart failure, unspecified HF chronicity, unspecified heart failure type (HCC)- Primary [facility]* Diagnosis Acute HFrEF (heart failure [...] Pulmonary vascular congestion [facility]* Diagnosis Chronic systolic heart failure (HCC)- Primary Chronic systolic heart failure Essential hypertension Unspecified essential hypertension Chronic kidney disease, unspecified CKD stage [facility]* Diagnosis Acute kidney injury superimposed on CKD (HCC) (HCC)- Primary Acute kidney injury superimposed on CKD (HCC) (HCC) Transaminitis Nonspecific elevation of levels of transaminase or lactic acid dehydrogenase (LDH) History of CHF (congestive heart failure) Personal history of other diseases of circulatory system HFrEF (heart failure with reduced ejection fraction) (HCC) [facility]* Diagnosis Acute systolic heart failure (HCC)- Primary Acute systolic heart failure Essential hypertension Unspecified essential hypertension Chronic systolic heart failure (HCC) Chronic systolic heart failure Chronic kidney disease, unspecified CKD stage [facility]* Diagnosis Chronic systolic heart failure (HCC)- Primary Chronic systolic heart failure [facility]* Diagnosis NSTEMI (non-ST elevated myocardial infarction) (HCC)- Primary Acute myocardial infarction, subendocardial infarction, episode of care unspecified NSTEMI (non-ST elevated myocardial infarction) (HCC) Acute myocardial infarction, subendocardial infarction, episode of care unspecified Abdominal pain, unspecified abdominal location HFrEF (heart failure with reduced ejection fraction) ([facility]) Cardiorenal syndrome with renal failure, stage 1-4 or unspecified chronic kidney disease, with heart failure (HCC) Biventricular heart failure (HCC) Congestive heart failure, unspecified Chronic pulmonary embolism without acute cor pulmonale, unspecified pulmonary embolism type ([facility]) documented in this encounter [facility]Evaluation note* Diagnosis HFrEF (heart failure with reduced ejection fraction) (HCC)- Primary Acute HFrEF (heart failure with reduced ejection fraction) (HCC) Essential hypertension Unspecified essential hypertension Stage 3a chronic kidney disease (HCC) Noncompliance [facility] Diagnosis Acute kidney injury (HCC)- Primary Acute kidney injury (HCC) History of congestive heart failure Personal history of other diseases of circulatory system Bilateral lower extremity edema SCHUYLER (acute kidney injury) ([facility]) Acute HFrEF (heart failure with reduced ejection fraction) ([facility]) Noncompliance Essential hypertension Unspecified essential hypertension Sinus tachycardia Other specified cardiac dysrhythmias Acute deep vein thrombosis (DVT) of lower extremity (HCC) SCHUYLER (acute kidney injury) ([facility]) [facility]* Diagnosis HFrEF (heart failure with reduced ejection fraction) (HCC)- Primary Essential hypertension Unspecified essential hypertension Acute deep vein thrombosis (DVT) of other specified vein of both lower extremities ([facility]) [facility]* Diagnosis HFrEF (heart failure with reduced ejection fraction) (HCC)- Primary Essential hypertension Unspecified essential hypertension Acute deep vein thrombosis (DVT) of other specified vein of both lower extremities ([facility]) SCHUYLER (acute kidney injury) ([facility])- Primary Shortness of breath Chest pain, unspecified type [facility]* Diagnosis Chronic systolic heart failure (HCC)- Primary Chronic systolic heart failure Essential hypertension Unspecified essential hypertension Chronic kidney disease, unspecified CKD stage HFrEF (heart failure with reduced ejection fraction) (HCC)- Primary Essential hypertension Unspecified essential hypertension Acute deep vein thrombosis (DVT) of other specified vein of both lower extremities ([facility]) [facility] Diagnosis HFrEF (heart failure with reduced ejection fraction) (HCC)- Primary Essential hypertension Unspecified essential hypertension Acute deep vein thrombosis (DVT) of other specified vein of both lower extremities (HCC) Acute kidney injury superimposed on CKD (HCC) (HCC)- Primary Acute kidney injury superimposed on CKD (HCC) (HCC) Congestive heart failure, unspecified HF chronicity, unspecified heart failure type ([facility]) [facility] Diagnosis Chronic systolic heart failure (HCC)- Primary Chronic systolic heart failure Essential hypertension Unspecified essential hypertension Chronic kidney disease, unspecified CKD stage HFrEF (heart failure with reduced ejection fraction) (HCC)- Primary Essential hypertension Unspecified essential hypertension Acute deep vein thrombosis (DVT) of other specified vein of both lower extremities ([facility]) [facility] Diagnosis HFrEF (heart failure with reduced ejection fraction) (HCC)- Primary Essential hypertension Unspecified essential hypertension Acute deep vein thrombosis (DVT) of other specified vein of both lower extremities ([facility]) Biventricular congestive heart failure (HCC)- Primary Congestive heart failure, unspecified Generalized abdominal pain Abdominal pain, generalized Chest pain, unspecified type [facility] Diagnosis HFrEF (heart failure with reduced ejection fraction) (HCC)- Primary Essential hypertension Unspecified essential hypertension Acute deep vein thrombosis (DVT) of other specified vein of both lower extremities ([facility]) Elevated serum creatinine- Primary Other nonspecific findings on examination of blood Elevated brain natriuretic peptide (BNP) level [facility] Diagnosis Chest pain, unspecified type- Primary Nausea vomiting and diarrhea Diarrhea [facility]* Diagnosis HFrEF (heart failure with reduced ejection fraction) (HCC)- Primary Pneumonia of right lower lobe due to infectious organism Hypervolemia, unspecified hypervolemia type HFrEF (heart failure with reduced ejection fraction) ([facility]) Acute kidney injury superimposed on CKD (HCC) Tachycardia, unspecified Nonspecific intraventricular block Other heart block Abnormal electrocardiogram (ECG) (EKG) Cardiogenic shock ([facility]) [R57.0] Cardiogenic shock Acute deep vein thrombosis (DVT) of distal vein of lower extremity, unspecified laterality ([facility]) Pneumonia of right lower lobe due to infectious organism Acute kidney injury superimposed on CKD (HCC) [facility] Diagnosis Cough, unspecified type- Primary Pneumonia [...] duced ejection fraction) acute January 04 1:40pm [facility] Work Phone: History and physical note Author Anshul Lemus [facility] Note Date/Time January 04, 2025 2:06p m [facility] Medical Records Department [address] [place] [address] H&P Exam - Hospitalist 01/04/25 1351 MR#: [id number] Acct: [id number] Name: CARLO MEDINA Rep #:[id number] : 1980 44 From: Anshul Lemus DO PCP: Care Physician,No Primary Status :ADM IN Location: [facility] [id number] HPI - General General Date of [...] time. Has had numerous hospitalizations over at [facility] and recently was over at [facility] in September. It is documented throughout his charts at [facility] as well as [facility] that he has a history of [...] time to think about it. [facility] Medical History (Updated 01/04/25 @ [...] % (Auto) 59.5, Lymph % (Auto) 30.6, [place] % (Auto) 9.1, Eos % (Auto) 0.3, [...] Sens 45 H, [place] [address] H, Total Protein 6.8, Albumin 3.6, Globulin 3.2, Lipase 15 01/04/25 11:20: Troponin T Hi Sens 2 Hr 42 H EKG Initial EKG: Attestation: I personally reviewed and interpreted this EKG as follows: EKG Rhythm Intrepretation: Sinus Bradycardia Imaging Radiology Impression Chest X-Ray 01/04/25 08:25 IMPRESSION: Bibasilar atelectasis or pneumonia. Reading Location: [facility] Abdomen Ultrasound 01/04/25 11:03 IMPRESSION: 1. Ascites. 2. Fatty infiltration of the liver. Reading Location: [facility] Assessment & Plan Assessment/Plan (1) HFrEF (heart [...] History of noncompliance: Per previous documentation from [facility] as well [facility]. Patient is steadfast in regards to doing [...] his cardiomyopathy. Charges/Coding Visit Charges Inpatient E&M: 39136 Init Hosp L3 01/04/25 1406 <Electronically signed by Anshul Lemus DO> Cosigner Signature (if applicable): CC: Dr. Anshul Lemus, ; No Primary Care Physician~ Signed [facility] Work Phone: Hospital Discharge instructions* Attachments The following attachments cannot be sent through Care Everywhere. * Heart Failure Discharge Instructions, Adult (Filipino) documented in this [facility] Discharge instructions Ambulatory Orders* Phase II, Outpatient Cardiac Rehab Location: None [facility] Work Phone: Hospital Discharge instructionsAdditional Instructions You [...] is larger that perform those procedures including [facility], [facility], [facility], [facility]. If you have issues in regards to you passing out and having no recollection of the event, irregular heartbeat, call 911 and go to the nearest emergency room. As we discussed, you are at high risk of because of your weak heart and your abnormal heart rhythm (second-degree heart block Mobitz type II).[facility] Work Phone: Reason for referral (narrative)No reason for referral information [facility] Work Phone: Reason for visit Narrative* Auth/Cert (Routine) Specialty Diagnoses / Procedures Referred By Contaries t Referred To Contact Diagnoses Orthopnea Sore throat Positive D dimer Pulmonary vascular congestion Short of breath on exertion Chest pain, unspecified type Acute cough Congestive heart failure, unspecified HF chronicity, unspecified heart failure type (HCC) Procedures . Alonzo Aguilar MD [address] [place] [address] Phone: tel: fax: [facility] Clinical Decision Unit [address] [address] Phone: tel: Referral ID Status Reason Start Date Expiration Date Visits Re quested Visits Authorized [id number] 1 1 [facility] Advance Directives No Advanced Directives Records [...] Do you have a Healthcare Power of Scale Shooter? No January 04, 2025 7:54am Advance Directive Response Recorded Date/ Time Do you have a Healthcare Power of Scale Shooter? No January 04, 2025 2:45pm Advance Directive Response Recorded Date/ Time Do you have a Healthcare Power of Scale Shooter? No January 29, 2025 8:30am Do you have a Healthcare Power of Scale Shooter? No January 04, 2025 2:45pm Summary Purpose [...] January 08, 2025 7:50 am CHF EXACERBATION Pura 13th, 2025 7:48 am CHF EXACERBATION January 10, 2025 8:11 am Referral Order January 10, 2025 8:18 am BLOATING January 29, 2025 7:4 9am S/P [facility] 01/10 CHF Exacerbation January 2:34pm Additional Source Comments Reason for Visit (unrecogniz ed section and content) Reason Comments Shortness of Breath Specialty Diagnoses / Procedures Referred By Contac t Referred To Contact Diagnoses Shortness of breath Positive D dimer Chest pain, unspecified type Hypertension, unspecified type Congestive heart failure, unspecified HF chronicity, unspecified heart failure type (HCC) Procedures [id number]-[id number] of breath Sherri Jeter MD [address] [place] [address] [facility] 2e Cardiac Pcu [address] [place] [address] Referral ID Status Reason Start Date Expiration Date Visits Re quested Visits Authorized [id number] 1 1 Reason Onset Date Comments Hospital Follow-up 03/02/2024 Specialty Diagnoses / Procedures Referred By Contac t Referred To Contact Diagnoses Shortness of breath Procedures sob Helder Pozo MD [address] [facility] [address] [place] [address] [facility] Emergency Dept [address] [place] [address] Referral ID Status Reason Start Date Expiration Date Visits Re quested Visits Authorized [id number] 1 1 Reason Comments Shortness of Breath Since 7pm Specialty Diagnoses / Procedures Referred By Contac t Referred To Contact Diagnoses Shortness of breath Procedures sob Helder Pozo MD [address] [place] [address] [facility] Emergency Dept [address] [place] [address] Reason Onset Date Comments Care Coordination 03/08/2024 [...] HFrEF (heart failure with reduced ejection fraction) ([facility]) Procedures . Mary Ellen Brito MD [address] [place] [address] Phone: tel: fax: [facility] Cardiac Progressive Care Unit U [address]E [address] [place] [address] Phone: tel: Referral ID Status Reason Start Date Expiration Date Visits Re quested Visits Authorized [id number] 1 1 Reason Comments Leg Swelling BLE [...] Diagnoses Acute exacerbation of chronic heart failure ([facility]) Procedures - Serg Celaya MD [address] [place] [address] Phone: tel: fax: [facility] Cardiac Progressive Care Unit [address] [place] [address] Phone: tel: Referral ID Status Reason Start Date Expiration Date Visits Re quested Visits Authorized [id number] 1 1 Reason Onset Date Comments Hospital Follow-up 06/24/2024 Reason Onset Date Comments Hospital Follow-up 06/22/2024 Reason Comments Follow-up Reason Comments Abdominal Pain Shortness of Breath Patient reports he h as a history of heart disease and stage 3 kidney disease. Patient reports shob started last pm. 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 Specialty Diagnoses / Procedures Referred By Contac t Referred To Contact Diagnoses Transaminitis History of CHF (congestive heart failure) Acute kidney injury superimposed on CKD (HCC) ([facility]) Procedures . Ofelia Villalobos MD [address] [place] [address] Phone: tel: fax: [facility] Cardiac Thoracic Vascular Intensive Care Unit CTV ICU T1 [address] [place] [address] Phone: tel: Referral ID Status Reason Start Date Expiration Date Visits Re quested Visits Authorized [id number] 1 1 Reason Comments Hospital Follow-up Cardiomyopathy [...] . Rafa Samuel MD [address] [place] [address] Phone: tel: fax: [facility] Cardiac Progressive Care Unit PCU [address]E [address] [place] [address] Phone: tel: Referral ID Status Reason Start Date Expiration Date Visits Re quested Visits Authorized [id number] 1 1 Reason Onset Date Comments Hospital Follow-up 07/19/2024 Reason Onset Date Comments Appointment Request 07/23/2024 Reason Onset Date Comments Results 07/23/2024 Worsening renal function, hyperkalemia, heart failure Reason Comments Shortness of Breath Abdominal Pain Specialty Diagnoses / Procedures Referred By Macario t Referred To Contact Diagnoses Acute kidney injury (HCC) Procedures . Rafa Samuel MD [address] [place] [address] Phone: tel: fax: [facility] ED [address] [place] [address] Phone: tel: Referral ID Status Reason Start Date Expiration Date Visits Re quested Visits Authorized [id number] 1 1 Reason Onset Date Comments Hospital [...] (HCC) (HCC) Procedures . Nghia Webb MD [address] [place] [address] Phone: tel: fax: [facility] ED [address] [place] [address] Phone: tel: Referral ID Status Reason Start Date Expiration Date Visits Re quested Visits Authorized [id number] 1 1 Reason Comments Follow-up Reason Comments [...] organism Fluid overload, unspecified Procedures NA [facility] [address] [facility] [address] [place], [place] [address] [place] [place] [address] Phone: tel: [facility] [address] [facility] [address] [place] [address] Phone: tel: Referral ID Status Reason Start Date Expiration Date Visits Re quested Visits Authorized [id number] 3 3 Reason Comments Hospital follow-up HF [...] eloquis Specialty Diagnoses / Procedures Referred By Macaroi t Referred To Contact Emergency Medicine Diagnoses Pneumonia, unspecified organism Procedures NA [facility] [address] [facility] [address] [place] [address] Phone: tel: [facility] [address] [facility] [address] [place] [address] Phone: tel: Referral ID Status Reason Start Date Expiration Date Visits Re quested Visits Authorized [id number] 3 3 Reason Comments Hospital follow-up Transitional [...] Live RN) 0811 (Given - Provider: Tamiko Live, CRISTINE) furosemide (Lasix) injection 60 mg (COMPLETED) 60 [...] greater than 160, Starting on 02/28/24 at 4804 6141 (Given - Provider: Nirmala Hogan RN) ondansetron [...] refused) 1000 (Given - Provider: Ruby Powers, CRISTINE) clopidogrel (Plavix) tablet 75 mg 75 mg, [...] Xenia Patel RN) 1000 (Given - Provider: uRby Powers, CRISTINE) furosemide (Lasix) tablet 80 mg [...] 1330 1359 (Given - Provider: Lore Meek, CRISTINE) 1000 (Given - Provider: Ruby Powers RN) PRN Medication Order 03/05/2024 03/06/2024 03/07/2024 acetaminophen [...] Other - Comment: See previous administration from [facility]) furosemide (Lasix) tablet 80 mg 80 mg, Oral, Daily, First dose on Fri04/28/24 at 0900, On hold since Fri04/28/2024 at 0753 until manually unheld 0753 (Held by provid er - Provider: Juan Maya APRN - ASSOCIATE FINANCIAL PLANNER - Reason: Other)0900 (Dose Auto Held)1706 (Unheld [...] - Comment: okay to administer per [employer]OMAT [employer]) naloxone (Narcan) injection 0.4 mg 0.4 mg, IntraVENous, Every 5 min PRN, opioid reversal, respiratory depression, Starting on Fri04/28/24 at 1005, +++ For RR <10, pinpoint pupils, over sedation for opioid reversal - MUST notify educational recruiter provider immediately after first dose, may give [...] 4,000 Units, Oral, Daily, First dose on 05/31/24 at 1315, Ok to crush 1759 (Given [...] Anticoagulant 0929 (Given - Provider: King Jackson RN)1945 (Given - Provider: Maylin Washington RN) 0948 [...] King Jackson RN)1412 (Given - Provider: King Jcakson RN)2047 (Given - Provider: Maylin Washington RN) [...] last modification) on Benita 06/17/24 at 1400 0932 (Given - Provider: King Jackson RN)1400 (Not Given - Provider: King Jackson RN - Reason: Patient/family refused)1945 (Given - Provider: Maylin Washington RN) 0948 (Given - Provider: King Jackson RN)1411 (Given - Provider: King Jackson RN)204 (Given - Provider: Maylin Washington RN) 0930 (Given - Provider: Chloé Chilel RN)142 (Given - Provider: Chloé Chilel RN) magnesium hydroxide (Milk of Magnesia) 400 MG/5ML suspension 30 mL 30 mL, Oral, Nightly, First dose on Fri06/16/24 at 2100, Follow dose with 8 oz of water. 1948 (Not Given - Provider: Maylin Washington RN [...] RN)204 (Given - Provider: Maylin Washington RN) 0929 [...] Luong RN) 943 (Given - Provider: Anshul Hadley, CRISTINE) cholecalciferol [...] 1 dose 2205 (Given - Provider: Eugene Aiken RN) furosemide [...] at 0930 0944 (Given - Provider: Anshul Hadley RN) hydrALAZINE (Apresoline) tablet 100 mg (CANCELED) [...] RN)2055 (Given - Provider: Ladarius Luong, CRISTINE) 0900 (Not Given - Provider: Anshul Hadley, CRISTINE - Reason: See Provider Order) losartan (Cozaar) tablet 25 mg 25 mg, Oral, Daily, First dose on Fri07/05/24 [...] Nasal Decolonization 2204 (Given - Provider: Eugene Aiken, CRISTINE) 08 (Not Given - Provider: Eva Torres RN - Reason: Patient/family refused)2100 (Not Given - Provider: Ladarius Luong RN - Reason: Patient/family refused) 1006 (Given - Provider: Anshul Hadley, CRISTINE) ondansetron (Zofran) injection 4 mg (COMPLETED) 4 mg, IntraVENous, Once, On 07/03/24 at 0930, For 1 dose 1108 (Given - Provider: Shanti Rodriguez, CRISTINE) potassium chloride (Klor-Con) packet 40 mEq (COMPLETED) 40 mEq, Oral, Once, On 07/04/24 at 1400, For 1 dose, Dissolve each packet in 4 ounces of water = 5 mEq per 1 oz fluid., Indications: Hypokalemia 1424 (Given - Provider: Joe Hermosillo, CRISTINE) sodium bicarbonate tablet 1,300 mg 1,300 mg, [...] RN)2056 (Given - Provider: Ladarius Luong RN) 0944 (Given - Provider: Anshul Hadley RN) Continuous Medication Order 07/03/2024 07/04/2024 07/05/2024 nitroprusside [...] Pace, RN)2018 (Given - Provider: Dorothy Garcia, RN) 1028 (Given - Provider: Hortencia Pace, CRISTINE)2015 (Given - Provider: Sue Schuler RN) 0931 (Given - Provider: Pauline Schroeder, RN) carvedilol (Coreg) tablet 12.5 mg (CANCELED) 12.5 mg, Oral, 2 times daily with meals, First dose (after last modification) on Benita 07/15/24 at 1700 2014 (Given - Provider: Sue Schuler, RN) carvedilol (Coreg) tablet 25 mg 25 mg, Oral, 2 times daily with meals, First dose (after last modification) on Fri07/16/24 at 0800 0931 (Given - Provider: Pauline Schroeder, CRISTINE)1700 (Canceled Entry - Provider: Automatic Discharge Provider [...] at 1700 2018 (Given - Provider: Dorothy Garcia, CRISTINE - Comment: pt request) 1029 (Given - Provider: Hortencia Pace, CRISTINE) cholecalciferol (Vitamin D-3) tablet 4,000 Units [...] RN)2018 (Given - Provider: Sue Schuler, CRISTINE) 930 (Given - Provider: Pauline Schroeder, RN) sodium bicarbonate tablet 1,300 mg 1,300 mg, Oral, 2 times daily, First dose on Fri07/12/24 at 0900 0817 (Given - Provider: Hortencia Pace RN)2018 (Given - Provider: Dorothy Garcia, CRISTINE) 1028 (Given - Provider: Hortencia Pace RN)2015 [...] 0840 (Given - Provider: Tamiko Live, RN) carvedilol (Coreg) tablet 25 mg 25 mg, Oral, 2 times daily with meals, First dose on 07/24/24 at 0800 0914 (Given - Provider: Phyllis Luna RN)2015 (Given - Provider: Sue Schuler RN) 0901 (Given - Provider: Tamiko Live, CRISTINE)2000 (Given - Provider: Sue Schuler, CRISTINE) 0840 (Given - Provider: Tamiko Live, CRISTINE) [...] Live, CRISTINE)1222 (Given - Provider: Tamiko Live, CRISTINE) sodium bicarbonate tablet 1,300 mg 1,300 mg, Oral, 2 times daily, First dose on 07/24/24 at 0220 0900 (Given - Provider: Phyllis Luna, RN)2015 (Given - Provider: Sue Schuler, RN) 0856 (Given - Provider: Tamiko Live, RN)2000 (Given - Provider: Sue Schuler RN) [...] Sonia Zambrano RN)2100 (Given - Provider: Yue Patterson, CRISTINE) 1017 (Given - Provider: Sonia Zambrano RN)2100 [...] mg, Oral, Daily, First dose on Benita 08/19/24 at 1115, Do not crush or chew. [...] Sonia Zambrano RN) 1018 (Given - Provider: Snoia Zambrano RN) 0906 (Given - Provider: Jacque [...] 141 (Given - Provider: Penelope Chaidez RN) 0958 [...] Reason: Patient refused)1543 (Given - Provider: Xenia Talyor RN) 0900 (Hold/Not Given - Provider: Penelope [...] 0900 (Patch Removal - Provider: Xenia Taylor RN)165 (Patch Applied - Provider: Xenia Taylor RN)1756 (AUG Hold - Provider: Renato Adt - Reason: Patient Transfer) 0456 (Patch [...] Reason: Patient refused)1300 (Hold/Not Given - Provider: Gsielle Pierre RN - Reason: Patient refused)1700 (Due) [...] Care Teams (unrecognized sec tion and content) Financial Systems Administrator Relationship Specialty Start Date End Date Dia Gaitan RN Registered Nurse Cardiology 03/02/24 Financial Systems Administrator Relationship Specialty Start Date End Date Dia Gaitan, RN Registered Nurse Cardiology 03/02/24 Financial Systems Administrator Relationship Specialty Start Date End Date Dia Gaitan RN Registered Nurse Cardiology 03/02/24 Financial Systems Administrator Relationship Specialty Start Date End Date Dia Gaitan, RN Registered Nurse Cardiology 03/02/24 Financial Systems Administrator Relationship Specialty Start Date End Date Dia Gaitan, RN Registered Nurse Cardiology 03/02/24 Financial Systems Administrator Relationship Specialty Start Date End Date Dia Gaitan, RN Registered Nurse Cardiology 03/02/24 Financial Systems Administrator Relationship Specialty Start Date End Date Dia Gaitan, RN Registered Nurse Cardiology 03/02/24 Financial Systems Administrator Relationship Specialty Start Date End Date Dia Gaitan RN Registered Nurse Cardiology 03/02/24 Financial Systems Administrator Relationship Specialty Start Date End Date Dia Gaitan RN Registered Nurse Cardiology 03/02/24 Financial Systems Administrator Relationship Specialty Start Date End Date Dia Gaitan RN Registered Nurse Cardiology 03/02/24 Financial Systems Administrator Relationship Specialty Start Date End Date Dia Gaitan, RN Registered Nurse Cardiology 03/02/24 Financial Systems Administrator Relationship Specialty Start Date End Date Dia Gaitan, RN Registered Nurse Cardiology 03/02/24 Financial Systems Administrator Relationship Specialty Start Date End Date Dia Gaitan RN Registered Nurse Cardiology 03/02/24 Financial Systems Administrator Relationship Specialty Start Date End Date Dia Gaitan, RN Registered Nurse Cardiology 03/02/24 Financial Systems Administrator Relationship Specialty Start Date End Date Dia Gaitan, RN Registered Nurse Cardiology 03/02/24 Financial Systems Administrator Relationship Specialty Start Date End Date Dia Gaitan, RN Registered Nurse Cardiology 03/02/24 None, Pcp [address] [place] [address] Urgent Care 06/07/24 Financial Systems Administrator Relationship Specialty Start Date End Date Dia Gaitan, RN Registered Nurse Cardiology 03/02/24 None, Pcp [address] [place] [address] Urgent Care 06/07/24 Financial Systems Administrator Relationship Specialty Start Date End Date Dia Gaitan, RN Registered Nurse Cardiology 03/02/24 None, Pcp [address] [place] [address] Urgent Care 06/07/24 Financial Systems Administrator Relationship Specialty Start Date End Date Dia Gaitan, RN Registered Nurse Cardiology 03/02/24 None, Pcp [address] [place] [address] Urgent Care 06/07/24 Financial Systems Administrator Relationship Specialty Start Date End Date Dia Gaitan, RN Registered Nurse Cardiology 03/02/24 None, Pcp [address] [place] [address] Urgent Care 06/07/24 Financial Systems Administrator Relationship Specialty Start Date End Date Dia Gaitan RN Registered Nurse Cardiology 03/02/24 None, Pcp [address] [place] [address] Urgent Care 06/07/24 Financial Systems Administrator Relationship Specialty Start Date End Date Dia Gaitan RN Registered Nurse Cardiology 03/02/24 None, Pcp [address] [place] [address] Urgent Care 06/07/24 Financial Systems Administrator Relationship Specialty Start Date End Date Dia Gaitan RN Registered Nurse Cardiology 03/02/24 None, Pcp [address] [place] [address] Urgent Care 06/07/24 Financial Systems Administrator Relationship Specialty Start Date End Date Dia Gaitan, RN Registered Nurse Cardiology 03/02/24 None, Pcp [address] [place] [address] Urgent Care 06/07/24 Financial Systems Administrator Relationship Specialty Start Date End Date Dia Gaitan RN Registered Nurse Cardiology 03/02/24 None, Pcp [address] [place] [address] Urgent Care 06/07/24 Financial Systems Administrator Relationship Specialty Start Date End Date Dia Gaitan RN Registered Nurse Cardiology 03/02/24 None, Pcp [address] [place] [address] Urgent Care 06/07/24 Financial Systems Administrator Relationship Specialty Start Date End Date Dia Gaitan RN Registered Nurse Cardiology 03/02/24 None, Pcp [address] [place] [address] Urgent Care 06/07/24 Financial Systems Administrator Relationship Specialty Start Date End Date Dia Gaitan, RN Registered Nurse Cardiology 03/02/24 None, Pcp [address] [place] [address] Urgent Care 06/07/24 Financial Systems Administrator Relationship Specialty Start Date End Date Dia Gaitan RN Registered Nurse Cardiology 03/02/24 None, Pcp [address] [place] [address] Urgent Care 06/07/24 Financial Systems Administrator Relationship Specialty Start Date End Date Dia Gaitan, RN Registered Nurse Cardiology 03/02/24 None, Pcp [address] [place] [address] Urgent Care 06/07/24 Earline Addison, RN Registered Nurse Humanities Professor Manager 07/26/24 Financial Systems Administrator Relationship Specialty Start Date End Date Dia Gaitan RN Registered Nurse Cardiology 03/02/24 None, Pcp [address] [place] [address] Urgent Care 06/07/24 Earline Addison, RN Registered Nurse Humanities Professor Manager 07/26/24 Financial Systems Administrator Relationship Specialty Start Date End Date Dia Gaitan RN Registered Nurse Cardiology 03/02/24 None, Pcp [address] [place] [address] Urgent Care 06/07/24 Earline Addison, RN Registered Nurse Humanities Professor Manager 07/26/24 Financial Systems Administrator Relationship Specialty Start Date End Date Dia Gaitan, RN Registered Nurse Cardiology 03/02/24 None, Pcp [address] [place] [address] Urgent Care 06/07/24 Earline Addison RN Registered Nurse Humanities Professor Manager 07/26/24 Financial Systems Administrator Relationship Specialty Start Date End Date Dia Gaitan RN Registered Nurse Cardiology 03/02/24 None, Pcp [address] [place] [address] Urgent Care 06/07/24 Earline Addison RN Registered Nurse Humanities Professor Manager 07/26/24 Financial Systems Administrator Relationship Specialty Start Date End Date Dia Gaitan RN Registered Nurse Cardiology 03/02/24 None, Pcp [address] [place] [address] Urgent Care 06/07/24 Earline Addison RN Registered Nurse Humanities Professor Manager 07/26/24 Financial Systems Administrator Relationship Specialty Start Date End Date Dia Gaitan, RN Registered Nurse Cardiology 03/02/24 None, Pcp [address] [place] [address] Urgent Care 06/07/24 Earline Addison RN Registered Nurse Humanities Professor Manager 07/26/24 Financial Systems Administrator Relationship Specialty Start Date End Date Dia Gaitan, RN Registered Nurse Cardiology 03/02/24 None, Pcp [address] [place] [address] Urgent Care 06/07/24 Financial Systems Administrator Relationship Specialty Start Date End Date Dia Gaitan, RN Registered Nurse Cardiology 03/02/24 None, Pcp [address] [place] [address] Urgent Care 06/07/24 Earline Addison, RN Registered Nurse Humanities Professor Manager 07/26/24 Financial Systems Administrator Relationship Specialty Start Date End Date Dia Gaitan RN Registered Nurse Cardiology 03/02/24 None, Pcp [address] [place] [address] Urgent Care 06/07/24 Earline Addison RN Registered Nurse Humanities Professor Manager 07/26/24 Financial Systems Administrator Relationship Specialty Start Date End Date Dia Gaitan RN Registered Nurse Cardiology 03/02/24 None, Pcp [address] [place] [address] Urgent Care 06/07/24 Earline Addison RN Registered Nurse Humanities Professor Manager 07/26/24 Financial Systems Administrator Relationship Specialty Start Date End Date Dia Gaitan RN Registered Nurse Cardiology 03/02/24 None, Pcp [address] [place] [address] Urgent Care 06/07/24 Earline Addison RN Registered Nurse Humanities Professor Manager 07/26/24 Financial Systems Administrator Relationship Specialty Start Date End Date Dia Gaitan RN Registered Nurse Cardiology 03/02/24 None, Pcp [address] [place] [address] Urgent Care 06/07/24 Earline Addison RN Registered Nurse Humanities Professor Manager 07/26/24 Financial Systems Administrator Relationship Specialty Start Date End Date Dia Gaitan, RN Registered Nurse Cardiology 03/02/24 None, Pcp [address] [place] [address] Urgent Care 06/07/24 Financial Systems Administrator Relationship Specialty Start Date End Date Dia Gaitan, RN Registered Nurse Cardiology 03/02/24 None, Pcp [address] [place] [address] Urgent Care 06/07/24 Earline Addison, RN Registered Nurse Humanities Professor Manager 07/26/24 08/24/24 Financial Systems Administrator Relationship Specialty Start Date End Date Dia Gaitan, RN Registered Nurse Cardiology 03/02/24 None, Pcp [address] [place] [address] Urgent Care 06/07/24 Financial Systems Administrator Relationship Specialty Start Date End Date Yuval Gayle MD [address] [place] [address] [place] [address] PCP - General Family Medicine 08/27/24 Financial Systems Administrator Relationship Specialty Start Date End Date Yuval Gayle MD [address] [place] [address] [place] [address] PCP - General Family Medicine 08/27/24 Financial Systems Administrator Relationship Specialty Start Date End Date Yuval Gayle MD [address] [place] [address] [place] [address] PCP - General Family Medicine 08/27/24 Financial Systems Administrator Relationship Specialty Start Date End Date Yuval Gayle MD [address] [place] [address] [place] [address] PCP - General Family Medicine 08/27/24 Financial Systems Administrator Relationship Specialty Start Date End Date Yuval Gayle MD [address] [place] [address] [place] [address] PCP - General Family Medicine 08/27/24 Financial Systems Administrator Relationship Specialty Start Date End Date Yuval Gayle MD [address] [place] [address] [place] [address] PCP - General Family Medicine 08/27/24 Financial Systems Administrator Relationship Specialty Start Date End Date Yuval Gayle MD [address] [place] [address] [place] [address] PCP - General Family Medicine 08/27/24 Financial Systems Administrator Relationship Specialty Start Date End Date Yuval Gayle MD [address] [place] [address] [place] [address] PCP - General Family Medicine 08/27/24 Financial Systems Administrator Relationship Specialty Start Date End Date Yuval Gayle MD [address] [place] [address] [place] [address] PCP - General Family Medicine 08/27/24 Financial Systems Administrator Relationship Specialty Start Date End Date Yuval Gayle MD [address] [place] [address] [place] [address] PCP - General Family Medicine 08/27/24 Financial Systems Administrator Relationship Specialty Start Date End Date Yuval Gayle MD [address] [place] [address] [place] [address] PCP - General Family Medicine 08/27/24 Financial Systems Administrator Relationship Specialty Start Date End Date Yuval Gayle MD [address] [place] [address] [place] [address] PCP - General Family Medicine 08/27/24 Financial Systems Administrator Relationship Specialty Start Date End Date Yuval Gayle MD [address] [place] [address] [place] [address] PCP - General Family Medicine 08/27/24 Financial Systems Administrator Relationship Specialty Start Date End Date Yuval Gayle MD [address] [place] [address] [place] [address] PCP - General Family Medicine 08/27/24 Team Status: Active Member Role/Relationship Status Dates No Primary Care Physician Primary Care Provider Active Team Status: Active Member Role/Relationship Status Dates Dr. Deborah Penaloza , DO Emergency Provider Active Start: January 04, [...] rt: January 04, 2025 Jennifer Santiago NP, AUTOMAT WATCHER-C Other Provider Active Start: January 04, 2025 IVIS Mcnair Other Provider Active Start: Donaldo 2024 Team Status: Active Member Role/Relationship Status [...] rt: January 09, 2025 Jennifer Santiago NP, AUTOMAT WATCHER-C Other Provider Active Start: January 09, 2025 IVIS Mcnair Other Provider Active Start: dell2024 Team Status: Active Member Role/Relationship Status [...] End: January 10, 2025 Jennifer Santiago NP, AUTOMAT WATCHER-C Other Provider Active Start: January 04, 2025 End: January 10, 2025 IVIS Mcnair Other Provider Active Start: dell2024 End: January 10, 2025 Team Status: Active [...] : January 10, 2025 Dr. Eugene Bucio , Other Provider Active Sta rt: January 10, 2025 Dr. Deja Gregorio MD Other Provider Active Start : January 10, 2025 Dr. Kaitlin Goldne MD Other Provider Active St art: January 10, 2025 Kalie Caruso , AUTOMAT WATCHER-C Other Provider Active Sta rt: January 10, 2025 Jennifer Santiago NP, AUTOMAT WATCHER-C Other Provider Active Start: January 10, 2025 [...] section and content) DATE CREATED AUTHOR 08/26/2024 [facility] DATE CREATED AUTHOR AUTHOR'S ORGANIZ ATION 10/11/2024 [facility] DATE CREATED AUTHOR AUTHOR'S ORGANIZ ATION 01/22/2025 [facility] DATE CREATED AUTHOR AUTHOR'S ORGANIZ ATION 02/07/2025 [facility] DATE CREATED AUTHOR AUTHOR'S ORGANIZ ATION 02/07/2025 [facility] DATE CREATED AUTHOR AUTHOR'S ORGANIZ ATION 02/12/2025 [facility] Source Comments (unrecognize d section and content) In the event this informatio n is protected by the Federal Confidentiality of Alcohol and Drug Abuse Patient Records regulations: The Federal rules restrict any use of the information to criminally investigate or prosecute any alcohol or drug abuse patient.[facility] the event this information is protected by the Federal Confidentiality of Alcohol and Drug Abuse Patient Records regulations: The Federal rules restrict any use of the information to criminally investigate or prosecute any alcohol or drug abuse patient.[facility] Goals (unrecognized section and content) [...] BE BASED ON THE PRIMARY CLINICAL RECORDS. [facility] [employer] [facility]. provides no warranty or guarantee of the accuracy or completeness of information in this document.
[2025-02-13 23:04] LABS: Magnesium 2.6 mg/dL (1.5-2.2)
--- OUTSIDE RECORDS SUMMARY | 2025-02-13 23:21 | XMS RPT_ITS | CCD ---
Author Organization [facility] Providers Care [employer] Advisor Name Role Phone Unavailable Primary Care Provider Unavailjoe Gaitan RN, Dia Velazquez Unavailable Unavailable None, Pcp Unavailable Earline Addison RN Unavailable UnavailDia Rdz RN Unavailable Unavailable None, Pcp Unavailable Earline Addison RN Unavailable Unavailjoe Addison RN, Earline Unavailable UnavailJAMAL Strickland Referring Unavailable SHANE STERN Referring Unavailable CITLALY, MARY ELLEN Attending Unavailable JAMAL BOSE Consulting Unavailable SHERRI JETER Admitting Unavailable MUKKAMALLA, MAHNAOMIER Admitting Unavailable MUKKDICKA, CLARISSAAVEER Attending Unavailable ANGEL LUIS LASSITER Consulting Unavailable [...] LOAIZA Referring Unavailable MCCULLOUGH, MANSUMEET Consulting Unavailable MOREJEFFREYT, MARY ELLEN Attending Unavailable CARLOTAT, MARY ELLEN [...] Provider UnavailYuval Kathleen MD Primary Care Provider [phone] SHARI HIGGINS Primary Care Unavailable SABINE LANGFORD [...] [place] BOSTON, Dr. Madrigal Other Provider Shady 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-C, Kalie Other Provider Unavailabl yasmany Santiago 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-C, Jennifer Other Provider Jadyn LANGSTON, Janay Other Provider Rufina BOSTON, Dr. Rodas Attending Provider Alebr BOSTON, Dr. Doll Attending Provider Unavailab JIM [...] Unavailable Dr. Vargas Rea DO Emergency Provider [phone] SUNNY, MAGED Attending Unavailable MAGED CORREA Admitting Unavailable NIC ROSADO Admitting Unavaila ble VARGAS REA Referring Unavailable MAL, GUS A Consulting Unavailable JASON CANO Attending Unavailable Dr. Vargas Rea DO Attending Provider Care Physician, No Primary Referring Provider Un available Dr. Joel Berg MD Attending Provider Care Physician, No Primary Primary Care Unava ilable Jopperi, Anshul Admitting Unavailable Jopperi, Anshul Attending Unavailable Jopperi, Anshul Consulting Unavailable Jabri, Ahmad Consulting Unavailable FortunatoEugene arango Consulting Unavailable Darline, Deja Consulting Unavailable Golden, Kaitlin Consulting Unavailable Shady, Kalie Consulting Unavailable Jack 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, Jennifer Consulting Unavailable Mascdaniella, Janay Consulting Unavailable Vargas Rea Attending Unavailable Care Physician, No Primary Primary Care Unava ilable Jabri, Ahmad Consulting Unavailable Jopperi, Anshul Admitting Unavailable Jopperi, Anshul Attending Unavailable Care Physician, No Primary Primary Care Unava ilable Eugene Bucio Consulting Unavailable Darline, Deja Consulting Unavailable Golden, Kaitlin Consulting Unavailable Shady, Kalie Consulting Unavailable Jack 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, Jennifer Consulting Unavailable Masci, Janay Consulting Unavailable Jabri, Ahmad Attending Unavailable Care Physician, No Primary Primary Care Unava ilable Care Physician, No Primary Primary Care Unava ilable Clark Almaraz Attending Unavailable Joel Berg Attending Unavailable Care Physician, No Primary Primary Care Unava ilable Care Physician, No Primary Referring Unava ilable Dr. Anshul Lopez DO Emergency Provider [phone]. Eugene Alexandra DO Admit Provider Unavail able Dr. Eugene Alexandra DO Attending Provider Unav ailable Allergies Allergy Classification Reported Allergen(s) Allergy Type Date of Onset Reaction(s) Facility (20 sources) sacubitril / valsartan; Translations: [SACUBITRIL-VALS TONY] Drug Allergy 5 Nausea And Vomiting, Other: See Comments, [facility]omiting [facility] (20 sources) torsemide; Translations: [TORSEMIDE] Drug Allergy 5 Nausea And Vomiting, Vomiting [facility] (1 source) hydrALAZINE; Translations: [HYDRALAZINE] Drug Allergy 08 [facility] Repository Medications Current Medications Medication Drug Class(es) Dates Sig (Normalized) Sig (Original) apixaban 5 mg oral tablet (20 sources) Factor Xa Inhibitor Start: 07-03-2024 End: 01-23-2025 take 1 tablet by mouth twice daily Apixaban (Eliquis) 5 mg tablet Active 5 mg PO TWICE A DAY January 04, 2025 12:00am blood thinner Start: 06-21-2024 End: 08-23-2024 take 2 tablets [...] TWICE A DAY January 04, 2025 12:00am water retention Start: 08-05-2024 End: 10-26-2024 take 2 tablets [...] mg PO Q8H January 04, 2025 12:00am heart Start: 10-01-2024 take 20 mg by mouth three times daily 20 mg, Oral, THREE TIMES DAILY 0900, 1300, 1700, First dose on Fri10/01/24 at 1700, Until Discontinued Start: 09-11-2024 take 1 tablet by rafiq three times daily isosorbide dinitrate (ISORDIL) 20 [...] HFrEF (heart failure with reduced ejection fraction) ([facility]) Take 1 tablet (50 mg) by [...] HFrEF (heart failure with reduced ejection fraction) ([facility]) Take 1 tablet (25 mg) by mouth [...] EVERY 6 HOUR S PRN, Starting on 10/01/24 at 2357, Until 10/02/24 at 0045, Mild [...] mg/ml injection (2 sources) Start: 08-20-2024 End: 02-21-2025 take 2000 mg intravenously every four hours [...] once daily cholecalciferol (Vitamin D-3) 50 MCG (1999 UT) tablet Take 2 tablets (4,000 Units) by mouth daily. 180 tablet 06/02/2024 08/20/2024 Discontinued (Stop taking at discharge) Start: 05-31-2024 End: 08-20-2024 take 4000 [IU] by mouth once daily 4,000 Units, Oral, Daily, First dose on Fri07/24/24 at 0900 take 1 capsule by az uth once daily Cholecalciferol 50 MCG (1999 UT) [...] 75 mg, Oral, Daily, First dose on Fri06/14/24 at 0900 diatrizoate meglumine-sodium (Gastrografin) 66-10 % [...] 100 mg, Oral, ONCE, 1 dose, On Fri09/30/24 at 1835 0.8 ml enoxaparin sodium 100 [...] IntraVENous, IMG once PRN, contrast, Starting on 07/11/24 at 2229, For 1 dose Start: 04-28-2024 [...] hours PRN, moderate pain (4-6), Starting on 04/28/24 at 1004, If oral and IV narcotics ordered, use oral first and only use IV if oral is ineffective or cannot take oral. Do Not give oral and IV within 1 hour of each other unless specifically ordered. Start: 04-28-2024 End: 04-28-2024 take 1 dose by mouth every hour 4 mg, IntraVENous, Onc e, On 04/28/24 at 0545, For 1 dose, If oral [...] PRN, Starting on 10/02/24 at 0030, Until Tu10/05/24 at 1242, Severe Pain (pain score 7,8,9,10) [...] reach optimal image enhancement polyethylene glycol 3350 74492 mg powder for oral solution (16 sources) [...] between any LUCRECIA inhibitor dose and sacubitril-valsartan. [employer], assisted 8.6 mg oral tablet (1 source) Start: [...] 0320, For 1 dose sodium zirconium cyclosilicate 11945 mg powder for oral suspension (2 sources) Start: 06-13-2024 End: 06-13-2024 10 g, Oral, Once, On Fri06/13/24 at 1620, For 1 dose, Empty entire [...] Date Documented Da te Episodic/Chronic Abdominal pain (11 sources) Abdominal pain; Translations: [Unspecified abdominal pain] Onset: 5 07-11-2024 Episodic Acute myocardial infarction (14 sources) Myocardial infarction; Translations: [Non-ST elevation (NSTEMI) myocardial infarction] Onset: 5 07-11-2024 Chronic Biliary tract disease (6 sources) Acute cholecystitis without calculus; Translations: [Acute cholecystitis] Onset: 4 06-01-2024 Episodic Cardiac dysrhythmias (2 sources) Chronic atrial fibrillation; Translations: [Chronic atrial fibrillation, unspecified] 2025 Chronic Chronic kidney disease (20 sources) Chronic kidney disease; Translations: [Chronic kidney disease, unspecified] Onset: 4 06-08-2024 Chronic Chronic kidney disease (13 sources) Chronic kidney disease; Translations: [Chronic kidney disease, stage 3b (HCC)] Onset: Conduction disorders (20 sources) Non-specific intraventricular conduction delay; Translations: [Nonspecific intraventricular block] Onset: 5 10-02-2024 Chronic Congestive heart failure; nonhypertensive (20 sources) Congestive heart failure; Translations: [Heart failure, unspecified] Onset: 4 Resolved: 5 02-28-2024 Chronic Congestive heart failure; nonhypertensive (10 sources) Congestive heart failure; nonhypertensive; Translations: [Heart [...] protein-calorie malnutrition] Onset: 4 05-29-2024 Chronic Other aftercare (2 sources) Long-term current use of anticoagulant; Translations: [assisted (current) use of anticoagulants] 2025 Episodic Other and ill-defined heart disease (1 source) [...] Onset: 5 01-19-2025 Episodic Other gastrointestinal disorders (10 sources) Ascites; Translations: [Other ascites] 01-04-2025 Episodic [...] enzymes] Onset: 4 Episodic Other liver diseases (15 sources) Increased bilirubin level; Translations: [Unspecified jaundice] 01-04-2025 Episodic Other liver diseases (1 source) Scleral icterus; Translations: [Unspecified jaundice] Onset: 5 01-21-2025 Episodic Other liver diseases (2 sources) Unspecified jaundice; Translations: [Scleral icterus] Onset: 5 Episodic Other lower respiratory disease (4 sources) Hypoxia; Translations: [Hypoxemia] 03-06-2024 Episodic Other lower respiratory disease (2 sources) Cough; Translations: [Acute cough] 04-28-2024 Episodic Other lower respiratory disease (2 sources) Dyspnea on exertion; Translations: [Shortness of breath] 04-28-2024 Episodic Other lower respiratory disease (3 sources) Shortness of breath; Translations: [Shortness of breath] Onset: 4 Episodic Other lower respiratory disease (1 source) Cough; Translations: [Cough, unspecified type] 10-13-2024 Episodic Other lower respiratory disease (2 sources) Respiratory insufficiency; Translations: [Other abnormalities of breathing] 2025 Episodic Other nutritional; endocrine; and metabolic disorders (14 sources) Hypomagnesemia; Translations: [Hypomagnesemia] Onset: 5 10-21-2024 Chronic Other nutritional; endocrine; and metabolic disorders (1 source) Other disorders of bilirubin metabolism; Translations: [Bilirubinemia] Onset: 5 Chronic Other nutritional; endocrine; and metabolic disorders (2 sources) Hyperbilirubinemia; Translations: [Other disorders of bilirubin metabolism] 2025 Chronic Other screening for suspected conditions (not mental disorders or infectious disease) (18 sources) D-dimer above reference range; Translations: [Other [...] for unspecified reasons] Onset: 5 08-26-2024 Episodic Residual codes; unclassified (2 sources) Patient noncompliance - general; Translations: [General patient noncompliance] 2025 Episodic Unclassified (1 source) Elevation of levels [...] Test Name Value Interpretation Reference Range Facility Absolute lymphocyte countOrd ered By: Anshul Lopez on 2025 Lymphocytes Auto (Unsp spec) [#/Vol] 2.13 10*3/uL 0.83-4.51 [facility] Absolute neutrophil countOrd ered By: Anshul Lopez on 2025 Neutrophils (Bld) [#/Vol] 3.9 10*3/uL 2.0-7.7 [facility] Activated partial thrombopla stin time (aPTT) in platelet poor plasma by coagulation aOrdered By: Anshul Lopez on 2025 aPTT Coag (PPP) [Time] 21.2 s Low 24.1-36.2 [facility] Anion gap in Serum or Plasma Ordered By: Anshul Lopez on 2025 Anion gap [Moles/Vol] 20 mmol/L High 5-15 [facility] Automated lymphocyte count a s percentage of total leukocytesOrdered By: Anshul Lopez on 2025 Lymphocytes/100 WBC Auto (Unsp spec) 31.6 % 19-41 [facility] BUN/creatinine ratioOrdered By: Anshul Lopez on 2025 Urea nitrogen/Creatinine [Mass ratio] 14.6 mg/mg 10-20 [facility] Basophil percentageOrdered B y: Anshul Lopez on 2025 Basophils/100 WBC (Bld) 0.9 % 0-1 [facility] Bilirubin Test strip Ql (U)O rdered By: Anshul Lopez on 2025 Bilirubin Ql (U) 3 mg/dL High Negative [facility] Comment on above: COLOR OF URINE MAY A FFECT DIPSTICK RESULTS. Bilirubin, totalOrdered By: Anshul Lopez on 2025 Bilirubin [Mass/Vol] 3.79 mg/dL High 0.00-1.30 [facility] Carbon dioxide, total [Moles /volume] in Central venous bloodOrdered By: Anshul Lopez on 2025 CO2 [Moles/Vol] 18.7 mmol/L Low 21.0-32.0 [facility] Chloride assayOrdered By: Henry Lopez on 2025 Chloride [Moles/Vol] 103 mmol/L 98-108 [facility] Eosinophil percentageOrdered By: Anshul Lopez on 2025 Eosinophils/100 WBC (Bld) 0.4 % 0-5 [facility] Erythrocyte distribution wid th ratioOrdered By: Anshul Lopez on 2025 Erythrocyte distribution width (RBC) [Ratio] 16.6 % High 11.6-14.6 [facility] Erythrocyte distribution wid th standard deviationOrdered By: Anshul Lopez on 2025 Erythrocyte distribution width (RBC) [Ratio] 62.7 fl High 35.1-43.9 [facility] Erythrocyte morphology asses smentOrdered By: Anshul Lopez on 2025 RBC morphology finding Nom (Bld) NORM C+C NORMAL NORM C&C [facility] Glomerular filtration rate ( GFR) estimation/1.73 sq m using serum, plasma, or whole bOrdered By: Anshul Lopez on 2025 GFR/1.73 sq M.predicted among non-blacks MDRD (S/P/Bld) [Vol rate/Area] 30 mL/min/{1.73_m2} Low >60 [facility] Comment on above: mL/min/1.73m2 CKD-EP I Creatinine Equation (2020) Hematocrit Auto (Bld) [Volum e fraction]Ordered By: Anshul Lopez on 2025 Hematocrit (Bld) [Volume fraction] 41.7 % 40-54 [facility] Hemoglobin measurementOrdere d By: Anshul Lopez on 2025 Hemoglobin (Bld) [Mass/Vol] 13.4 g/dL 13.0-16.5 [facility] Hyaline casts LM.LPF (Urine sed) [#/Area]Ordered By: Anshul Lopez on 2025 Hyaline casts (Urine sed) [#/Area] 10 /[LPF] 0-5 [facility] Immature granulocytes/100 WB C Auto (Bld)Ordered By: Anshul Lopez on 2025 Immature granulocytes/100 WBC (Bld) 0.100 % 0.0-0.9 [facility] Comment on above: IG% - Immature Granu locytes (promyelocytes, myelocytes and metamyelocytes) > 1% indicates that a LEFT SHIFT is Present. Influenza virus A and B and SARS-CoV-2 (COVID-19) and Respiratory syncytial virus RNAOrdered By: Anshul Lopez on 2025 SARS-CoV-2 (COVID-19) RNA DEENA+probe Ql (Unsp spec) [facility] International normalized rat io (INR) calculationOrdered By: Anshul Lopez on 2025 INR Coag (Bld) [Relative time] 1.3 {INR} [facility] Ketones Test strip Ql (U)Ord ered By: Anshul Lopez on 2025 Ketones Ql (U) 5 mg/dl High Negative [facility] Laboratory - Chemistry and C hemistry - challengeOrdered By: Anshul Lopez on 2025 AST [Catalytic activity/Vol] 39 U/L High <38 [facility] Comment on above: Hemolysis present, R esults could be affected. Lipase measurementOrdered By : Anshul Lopez on 2025 Lipase [Catalytic activity/Vol] 17 U/L 13-75 [facility] Comment on above: Please note:LIPASE r evised reference range effective 22. New Lipase methodology. Expected to produce lower values than the previous assay method. NEW Reference Range: 13 - 75 U/L MCV (mean corpuscular volume ) determinationOrdered By: Anshul Lopez on 2025 MCV (RBC) [Entitic vol] 102.7 fL High 80-94 [facility] Mean corpuscular hemoglobin (MCH) determinationOrdered By: Anshul Lopez on 2025 MCH (RBC) [Entitic mass] 33.0 pg High 27.0-32.0 [facility] Mean corpuscular hemoglobin concentration (MCHC) determinationOrdered By: Anshul Lopez on 2025 MCHC (RBC) [Mass/Vol] 32.1 g/dL 32-36 [facility] Mean platelet volume determi nationOrdered By: Anshul Lopez on 2025 Platelet mean volume (Bld) [Entitic vol] 11.2 fL 6.2-12.0 [facility] Microscopic analysis of urin e for red blood cells (RBC)Ordered By: Anshul Lopez on 2025 Microscopic analysis of urine for red blood cells (RBC) 0-5 SEEN /hpf 0-5 [facility] Monocyte percentageOrdered B y: Anshul Lopez on 2025 Monocytes/100 WBC (Bld) 8.9 % 0-10 [facility] Mucus LM Ql (Urine sed)Order ed By: Anshul Lopez on 2025 Mucus Ql (Urine sed) 0 SEEN /hpf [facility] Natriuretic peptide.B prohor justin N-Terminal [Mass/volume] in Serum or PlasmaOrdered By: Anshul Lopez on 2025 Natriuretic peptide.B prohormone N-Terminal [Mass/Vol] 19047 pg/mL High <450 [facility] Comment on above: Heart Failure Unlike ly: < 300 pg/mLHeart Failure Likely< 50 Years: > 450 pg/mL50-75 Years: > 900 pg/mL>75 Years: > 1800 pg/mL Neutrophil percentageOrdered By: Anshul Lopez on 2025 Neutrophils/100 WBC (Bld) 58.1 % 47-70 [facility] Nitrite Test strip Ql (U)Ord ered By: Anshul Lopez on 2025 Nitrite Ql (U) Negative Negative [facility] Nucleated red blood cell per centageOrdered By: Anshul Lopez on 2025 Nucleated RBC/100 WBC (Bld) [Ratio] 0 % 0-5 [facility] Platelet countOrdered By: Henry Lopez on 2025 Platelets (Bld) [#/Vol] 243 10*3/uL 150-450 [facility] Platelet estimateOrdered By: Anshul Lopez on 2025 Platelets LM Ql (Bld) ADEQUATE ADEQ [facility] Comment on above: RARE PLATELET CLUMP NOTED. Potassium measurement (mass/ volume)Ordered By: Anshul Lopez on 2025 Potassium (Unsp spec) [Mass/Vol] 4.8 mmol/L 3.3-5.1 [facility] Comment on above: Hemolysis present, R esults could be affected. Protein Test strip Ql (U)Ord ered By: Anshul Lopez on 2025 Protein Ql (U) 100 mg/dl High Negative [facility] Prothrombin timeOrdered By: Anshul Lopez on 2025 PT Coag (PPP) [Time] 16.2 s High 11.7-14.9 [facility] RBC Auto (Bld) [#/Vol]Ordere d By: Anshul Lopez on 2025 RBC (Bld) [#/Vol] 4.06 10*6/uL Low 4.6-6.2 [facility] Serum creatinine measurement (mass/volume)Ordered By: Anshul Lopez on 2025 Creatinine [Mass/Vol] 2.60 mg/dL High 0.70-1.20 [facility] Serum globulin measurementOr dered By: Anshul Lopez on 2025 Globulin (S) [Mass/Vol] 3.7 g/dL 2.2-4.2 [facility] Serum glucose measurement (m ass/volume)Ordered By: Anshul Lopez on 2025 Glucose [Mass/Vol] 107 mg/dL High 70-99 [facility] Serum or plasma alanine de paz otransferase (ALT) measurementOrdered By: Anshul Lopez on 2025 ALT [Catalytic activity/Vol] 24 U/L <47 [facility] Comment on above: Hemolysis present, R esults could be affected. Serum or plasma albumin fidel urement (mass/volume)Ordered By: Anshul Lopez on 2025 Albumin [Mass/Vol] 3.5 g/dL 3.5-5.0 [facility] Serum or plasma albumin/glob ulin mass ratioOrdered By: Anshul Lopez on 2025 Albumin/Globulin [Mass ratio] 1.0 {ratio} 0.9-2.4 [facility] Serum or plasma alkaline nick sphatase measurementOrdered By: Anshul Lopez on 2025 ALP [Catalytic activity/Vol] 570 U/L High 40-129 [facility] Serum or plasma calcium fidel urement (mass/volume)Ordered By: Anshul Lopez on 2025 Calcium [Mass/Vol] 9.1 mg/dL 7.6-11.0 [facility] Serum or plasma urea nitroge n measurement (mass/volume)Ordered By: Anshul Lopez on 2025 Urea nitrogen [Mass/Vol] 38 mg/dL High 4-19 [facility] Sodium levelOrdered By: Anshul Lopez on 2025 Sodium [Moles/Vol] 141 mmol/L 133-145 [facility] Squamous epithelial cells de tection in urine sediment by light microscopyOrdered By: Anshul Lopez on 08-17-2025 Epithelial cells.squamous LM Ql (Urine sed) 0-5 SEEN /hpf 0-5 [facility] Total proteinOrdered By: Damari Lopez on 2025 Protein [Mass/Vol] 7.3 g/dL 5.9-8.4 [facility] Urine clarityOrdered By: Damari Lopez on 2025 Clarity (U) Clear Clear [facility] Urine color determinationOrd ered By: Anshul Lopez on 2025 Color (U) Chaya Yellow [facility] Urine glucose detectionOrder ed By: Anshul Lopez on 2025 Glucose Ql (U) Normal mg/dl Normal [facility] Urine leukocyte esterase det ection by dipstickOrdered By: Anshul Lopez on 2025 Leukocyte esterase Test strip Ql (U) 25 /ul High Negative [facility] Urine pHOrdered By: Anshul dhillon on 2025 pH (U) 5.0 [pH] 5.0 - 8.0 [facility] Urine sediment bacteria coun t by microscopy (number/high power field)Ordered By: Anshul Lopez on 2025 Bacteria LM.HPF (Urine sed) [#/Area] 3 /[HPF] None Seen [facility] Urine specific gravity measu rementOrdered By: Anshul Lopez on 2025 Specific gravity (U) [Rel density] 1.025 1.002-1.030 [facility] Urine urobilinogen measureme ntOrdered By: Anshul Lopez on 2025 Urobilinogen Ql (U) 4 mg/dl High Normal [facility] White blood cell (WBC) count Ordered By: Anshul Lopez on 2025 WBC (Bld) [#/Vol] 6.7 10*3/uL 4.4-11.0 [facility] White blood cell countOrdere d By: Anshul Lopez on 2025 White blood cell count 0-5 SEEN /hpf 0-5 [facility] Cardiology Visit Reporton Cardiology Visit Report [facility] [address] [place] [address] OFFICE VISIT Date of Service: 02/10/25 MR#: [id number] Acct: [id number] Name: CARLO MEDINA Rep #: [id number] : 1980 Provider: Dr. Joel davila MD Age/Sex: 44/M Location: [facility] Status: Signed HPI HPI History of Present Illness Details: Patient is a 44-year-old -Ethiopian male that comes in with his today for evaluation of his heart failure. The patient was originally diagnosed sometime in the summer or fall 2023 with severe LV dysfunction. He actually underwent left heart catheterization by Dr. Akilah YEE at [facility] which showed normal coronary arteries and EF [...] ms. The patient has been evaluated at [facility] in [place], has been evaluated at [facility] but could not go back there due to insurance issues, and was most recently admitted to [facility] February 01, 2025. He had a paracentesis done there but was not felt to be a candidate for CLEARANCE REP???D treatment as he had not been on [...] Method room air Intake Visit Reasons: S/P [facility] 01/10 CHF Exacerbation Hr Generalist Required: No Accompanied by: Girlfriend Is patient [...] you fallen in the past year?: No PFS Medical History (Updated 02/10/25 @ 15:40 by [...] Bilateral: Diminish (more content not included)... Normal [facility] CNPNon 02-02-2025 [facility] ([facility]) CARLO MEDINA ([id number]) 1980 Date Time Provider Department 02/02/25 Nichole VALDEZ [facility] During your visit today, we recorded the following information about you: Nichole Valdez, RN 02/02/2025 1:54 PM Signed The patient was discharged from [facility] 02/01/25 with an order to schedule [...] Date Reviewed: 01/31/2025 Reviewed by: Amber Day, Junior Data Analyst - Fully Assessed Reason for Visit: Orders [681] Cmt: [facility] - order contact/VM/Letter Prescriptions as of [...] Encounter Status:Closed by Nichole VALDEZ on 02/02/25 [facility] 02-01-2025 [facility]DS HNO ID: [id number] Author: JASON CANO MD Service: Hospital Medicine [...] shortness of breath. Patient was sent from [facility] to [facility] to pursue paracentesis and further workup. [...] in his symptoms. Patient is seen by advertising layout worker. Patient previously had extensive workup for ascites. [...] Your Medications These medications were sent to [facility] [address] [place], [place] [id number] Hours: Friday-Friday, 8am-7pm, Friday 9am-1pm metoprolol tartrate (short acting) 25 mg tablet These medications were sent to e- [facility]/pharmacy #[id number] [place] [address] - [address] [place] [address] - [id number] [place] [id number] bumetanide 1 mg tablet I have performed the ooly-gc-gyza and relevant services for a total of [...] February 01, 2025 TIME: 1:09 PM Normal [facility] CONSULT PROGon 02-01-2025 CONSULT PROG HNO ID: [id number] Author: SARAH GEORGE APRN.NURSE ADVISOR Service: ? Author Type: Nurse Practitioner Type: [...] heart failure with reduced ejection fraction to [facility] recently in December 2024 [...] narrow complex QRS. He was admitted to [facility] with lower extremity edema, abdominal bloating, apparently [...] at 02/01/2025 0820 Last data filed at 01/31/20252012 Gross per 24 hour Intake 1080 ml [...] systolic f (more content not included)... Normal [facility] HAV IgM Ser Qlon 02-01-2025 HAV IgM Ql (S) Non-Reactive Normal Nonreactive [facility] Comment on above: Order Comment: Sunni reynoso Type: BLOOD SPECIMEN Ordering Facility: [facility] Address: [address] [place] [address] Result Comment: No e vidence of recent infection with Hepatitis A virus. Performed By: #### 2 4325-3 #### [facility] CLIA [id number] [address] OF [facility] HBV core IgM Ser Qlon 2024 HBV core IgM Ql (S) Non-Reactive Normal Nonreactive [facility] Comment on above: Order Comment: Sunni reynoso Type: BLOOD SPECIMEN Ordering Facility: [facility] Address: [address] [place] [address] Result Comment: No e vidence of recent infection with Hepatitis B virus. Should recent infection be suspected, repeat testing may be considered 3-4 weeks after this draw. Performed By: #### 2 4325-3 #### [facility] CLIA [id number] [address] HBV surface Ag Ser Qlon HBV surface Ag Ql (S) Non-Reactive Normal Nonreactive [facility] Comment on above: Order Comment: Sunni reynoso Type: BLOOD SPECIMEN Ordering Facility: [facility] Address: [address] [place] [address] Performed By: #### 2 4325-3 #### [facility] CLIA [id number] [address] OF [place] HCV RNA DEENA+probe Qnon 02-01 HCV RNA DEENA+probe Ql Not detected Normal Not detected [facility] Comment on above: Order Comment: Sunni reynoso Type: BLOOD SPECIMENOrdering Facility: [facility] Address: [address] [place] [address] Performed By: #### 1 1011-4 ####[facility] [id number] [place] [address] [place] Hepatic function 2000 panelo n 02-01-2025 Albumin [Mass/Vol] 3.1 g/dL Low 3.9-4.9 [facility] Comment on above: Order Comment: Speci men Type: BLOOD SPECIMEN Ordering Facility: [facility] Address: [address] [place] [address] Performed By: #### 2 4325-3 #### [facility] CLIA [id number] [address] ALP [Catalytic activity/Vol] 483 U/L High 38-113 [facility] Comment on above: Order Comment: Speci men Type: BLOOD SPECIMEN Ordering Facility: [facility] Address: [address] [place] [address] Performed By: #### 2 4325-3 #### [facility] CLIA [id number] [address] [place] ALT With P-5'-P [Catalytic activity/Vol] 12 U/L Normal 10-54 [facility] Comment on above: Order Comment: Speci men Type: BLOOD SPECIMEN Ordering Facility: [facility] Address: [address] [place] [address] Performed By: #### 2 4325-3 #### [facility] CLIA [id number] [address] OF [facility] AST With P-5'-P [Catalytic activity/Vol] 22 U/L Normal 14-40 [facility] Comment on above: Order Comment: Speci men Type: BLOOD SPECIMEN Ordering Facility: [facility] Address: [address] [place] [address] Performed By: #### 2 4325-3 #### [facility] CLIA [id number] [address] [place] Bilirubin [Mass/Vol] 2.6 mg/dL High 0.2-1.3 [facility] Comment on above: Order Comment: Speci men Type: BLOOD SPECIMEN Ordering Facility: [facility] Address: [address] [place] [address] Performed By: #### 2 4325-3 #### [facility] CLIA [id number] [address] Bilirubin.conjugated [Mass/Vol] 1.8 mg/dL High <0.3 [facility] Comment on above: Order Comment: Sunni reynoso Type: BLOOD SPECIMEN Ordering Facility: [facility] Address: [address] [place] [address] Performed By: #### 2 4325-3 #### [facility] CLIA [id number] [address] STATES OF [facility] Protein [Mass/Vol] 5.8 g/dL Low 6.3-8.0 [facility] Comment on above: Order Comment: Sunni reynoso Type: BLOOD SPECIMEN Ordering Facility: [facility] Address: [address] [place] [address] Performed By: #### 2 4325-3 #### [facility] CLIA [id number] [address] NURSING PROGon 02-01-2025 NURSING PROG HNO ID: [id number] Author: TAHMINA CACERES, RN Service: Nursing Author Type: Registered Nurse Type: Nursing Progress Note Filed: 02/01/2025 00:21 Note Text: Other: 2250- Patient has a sustained heart rate of 140's. Notified and spoke to no new orders made. Patient has been refusing his medications (beta blockers). Normal [facility] XOCHITL BY IFA SCREENon 02-01-20 25 Nuclear Ab Ql (S) Negative Normal Negative [facility] Comment on above: Order Comment: Sunni reynoso Type: BLOOD SPECIMENOrdering Facility: [facility] Address: [address] [place] [address] Result Comment: Anti -nuclear antibody test is used as an aid in diagnosis of systemic autoimmune diseases. Where positive and clinically warranted, follow-up using disease-specific testing is recommended. Low positive titers are not uncommon with advanced age, certain chronic infections, and malignancies among others. Test methodology: Indirect fluorescence immunoassay (IFA) using HEp-2 cells. Performed By: #### A NAIFS ####[facility] LAB[facility]IA [id number] [address] [address] [place] Albumin Fld-ncon 5 Albumin (Body fld) [Mass/Vol] 1.8 g/dL Normal See Comment [facility] Comment on above: Order Comment: Speci men Type: FLUID SPECIMENOrdering Facility: [facility] Address: [facility] [place] [address] Result Comment: Body Fluid Albumin may be [...] document C49A. IVIS Lucas: Clinical Laboratory Standards [place]: 2007. 2. Diane MONGE. Serum to ascites albumin gradient. UpToDate. 2015. Accessed on October 11, 2015. This test was developed, and its performance characteristics determined by the [facility] Department of Pathology and Laboratory Medicine. It has not been cleared or approved by the FDA. The [facility] Department of Pathology and Laboratory Medicine is regulated under CLIA as qualified to perform high-complexity testing. This test is used for clinical purposes. It should not be regarded as investigational or for research. Performed By: #### 2 881-1 ####[facility] [id number] [place] [id number] [place]#### 1747-5 ####[facility] LABCLIA [id number] [place] [id number] [place] [facility]ORYCLIA [id number] [place] [address] [place] Amylase Fld-cCncon 5 Amylase (Body fld) [Catalytic activity/Vol] 19 U/L Normal See Comment [facility] Comment on above: Order Comment: Speci men Type: FLUID SPECIMENOrdering Facility: [facility] Address: [address] [id number] Result Comment: PLEU RAL FLUIDS: Amylase measurement [...] document C49-A. IVIS Lucas: Clinical Laboratory Standards [place]; 2007. 3. Arianne AMEZCUA, Malissa DIAZ, Marcia DJ. Use of cyst fluid CEA, CA19-9, and amylase for evaluation of pancreatic lesions. Clinical Biochemistry. 2009;42:8864-7593. This test was developed, and its performance characteristics determined by the [facility] Department of Pathology and Laboratory Medicine. It has not been cleared or approved by the FDA. The [facility] Department of Pathology and Laboratory Medicine is regulated under CLIA as qualified to perform high-complexity testing. This test is used for clinical purposes. It should not be regarded as investigational or for research. Performed By: #### 1 795-4 ####[facility]ORY[facility]IA [id number] [place] [address] [place] Fluid Nom (Body fld) Abdomen Normal [facility] Comment on above: Order Comment: Speci men Type: FLUID SPECIMENOrdering Facility: [facility] Address: [address] [place] [address] Performed By: #### 1 795-4 ####[facility]ORY[facility]IA [id number] [address] Performed By: #### 2 881-1 ####[facility] LABCLIA [id number] [address] OF [place]#### 1747-5 ####[facility] LABCLIA [id number] [address] [facility]ORY[facility]IA [id number] [address] BODY FLUID CELL COUNTon 08-0 Clarity (Unsp spec) Not Indicated Normal Clear [facility] Comment on above: Order Comment: Speci men Type: FLUID SPECIMENOrdering Facility: [facility] Address: [address] [place] [address] Performed By: #### C CBF, [id number] ####[facility]ORYCLIA [id number] [address] Color (Body fld) Not Indicated Normal Yellow [facility] Comment on above: Order Comment: Speci men Type: FLUID SPECIMENOrdering Facility: [facility] Address: [address] [place] [address] Performed By: #### C CBF, [id number] ####[facility]ORYCLIA [id number] [address] RBC Manual cnt (Body fld) [#/Vol] <2000 Normal <2000 [facility] Comment on above: Order Comment: Speci men Type: FLUID SPECIMENOrdering Facility: [facility] Address: [address] [place] [address] Performed By: #### C CBF, [id number] ####[facility]ORYCLIA [id number] [address] Specimen source Nom (Body fld) Ascites Fluid Normal [facility] Comment on above: Order Comment: Speci men Type: FLUID SPECIMENOrdering Facility: [facility] Address: [address] [place] [address] Performed By: #### C CBF, [id number] ####[facility]ORYCLIA [id number] [address] WBC Manual cnt (Body fld) [#/Vol] 137 /uL Normal <1000 [facility] Comment on above: Order Comment: Speci men Type: FLUID SPECIMENOrdering Facility: [facility] Address: [address] [place] [address] Performed By: #### C CBF, [id number] ####[facility]ORYCLIA [id number] [address] BRIEF OP NOTon 01-31-2025 BRIEF OP NOT HNO ID: [id number] Author: TRANG JEFFERS APRN.CNP Service: Interventional Radiology Author Type: Nurse Practitioner Type: Brief Op Note Filed: 01/31/2025 08:30 Note Text: BRIEF OP NOTE LOG ID: [id number] Surgery/Procedure Date: 01/31/2025 Incision/Procedure Start Time: 8:15 AM Incision Close/Procedure End Time: 8:28 AM Surgeon(s)/Procedural ist(s) and Pharmacy Care Coordinator(s): Trang Jeffers APRN.CNP Procedure(s): paracentesis Anesthesia: local 5 ml lidocaine Findings: 4600 ml clear yellow fluid; Albumin ordered No, 0 g Estimated Blood Loss: <3 ml Specimens: Yes Complications: none Pre-Op/Pre-Procedure Diagnosis: ascites Post-Op/Post-Procedur e Diagnosis: same SIGNATURE: Trang Jeffers APRN.CNP PATIENT NAME: Carlo Medina DATE: January 31, 2025 TIME: 8:29 AM PAGER/CONTACT #: Normal [facility] Bacteria Fld Culton 02-01-20 25 Bacteria identified Cx Nom (Body fld) CULTURE, BODY FLD: No growth 5 days GRAM STAIN: No organisms seen Few Polymorphonuclear leukocytes Rare Red Blood Cells Gram stain performed on cytospun specimen. Normal [facility] Comment on above: Performed By: #### 6 11-4 #### [facility] CLIA [id number] [address] Bacteria Spec Anaerobe Culto n 01-31-2025 Bacteria identified Anaer cx Nom (Unsp spec) Negative Normal [facility] Comment on above: Performed By: #### 6 35-3 ####[facility]ORYCLIA [id number] [address] CONSULT PROGon 01-31-2025 CONSULT PROG HNO ID: [id number] Author: SARAH GEORGE APRN.NURSE ADVISOR Service: ? Author Type: Nurse Practitioner Type: [...] heart failure with reduced ejection fraction to [facility] recently in December 2024 [...] narrow complex QRS. He was admitted to [facility] with lower extremity edema, abdominal bloating, apparently had been ongoing last 7 to 10 days. He was evaluated by Dr. Resendez, previous echo on revealed EF 15% with dilated RV, severe [...] carvedilol. He has just come back from IR, he is status post paracentesis for -4600. [...] Right ventric (more content not included)... Normal [facility] CYTOLOGY NON-GYNon 5 AP DISCLAIMER Normal [facility] Comment on above: Order Comment: Speci men Type: SPECIMEN OBTAINED BY ASPIRATION Ordering Facility: [facility] Address: [address] [place] [address], [place] [address] Result Comment: Lashae lagos Developed Test (LDT) Disclaimer: Performance characteristics of immunohistochemical, immunofluorescent, and chromogenic in-situ hybridization tests have been determined by the performing laboratory within [facility]'s [address] [facility] ([facility], [facility], [facility], [facility], [facility], [facility], or [facility]) in a manner consistent with CLIA [...] appropriately. Performed By: #### C YTONON #### [facility] CLIA [id number] [address] [place] [address] CASE REPORT Normal [facility] Comment on above: Order Comment: Speci men Type: SPECIMEN OBTAINED BY ASPIRATION Ordering Facility: [facility] Address: [address] [place] [address] Result Comment: [facility] Cytology Report Case: [id number] Authorizing Provider: Nic Rosado, Collected: 01/31/2025 08:17 AM Ordering Location: [facility] Received: 01/31/2025 08:50 AM Pathologist: Nabila Das MD Specimen: Peritoneal Fluid. Performed By: #### C YTONON #### [facility] CLIA [id number] [address] CLINICAL HISTORY cirrhosis Normal [facility] Comment on above: Order Comment: Speci men Type: SPECIMEN OBTAINED BY ASPIRATION Ordering Facility: [facility] Address: [address] [place] [address] Performed By: #### C YTONON #### [facility] CLIA [id number] [address] FINAL DIAGNOSIS Normal [facility] Comment on above: Order Comment: Speci men Type: SPECIMEN OBTAINED BY ASPIRATION Ordering Facility: [facility] Address: [address] [place] [address] Result Comment: A - Peritoneal Fluid Negative for malignant cells. The following cell blocks were associated with this case: A1 Cell Block, Formalin Fixed at 1059 EDT Performed By: #### C YTONON #### [facility] CLIA [id number] [address] FINAL PERFORMING LAB Normal [facility] Comment on above: Order Comment: Speci men Type: SPECIMEN OBTAINED BY ASPIRATION Ordering Facility: [facility] Address: [address] [place] [address] Result Comment: Tech nical component, facetor screening performed at: [facility], [address] [place] [address] CLIA: [id number] Diagnostic interpretation performed at: [facility], [address] [place] [address] CLIA# [id number] Dumper Bulk System: Anshul Bowen MD Performed By: #### C YTONON #### [facility] CLIA [id number] [address] [place] [address] GROSS DESCRIPTION Normal [facility] Comment on above: Order Comment: Speci men Type: SPECIMEN OBTAINED BY ASPIRATION Ordering Facility: [facility] Address: [address] [place] [address] Result Comment: A. P eritoneal Fluid. 1500 cc clear yellow fluid . ThinPrep and Cell Block prepared. Performed By: #### C YTONON #### [facility] CLIA [id number] [address] [place] [address] MANUAL DIFFERENTIAL, BODY FL UIDon 01-31-2025 DIF TTL, BODY FLUID 100 cells counted Normal [facility] Comment on above: Order Comment: Speci men Type: FLUID SPECIMENOrdering Facility: [facility] Address: [address] [place] [address] Performed By: #### C CBF, [id number] ####[facility]ORYCLIA [id number] [address] [place] LYMPH%, BF 31 % Normal 18-36 [facility] Comment on above: Order Comment: Speci men Type: FLUID SPECIMENOrdering Facility: [facility] Address: [address] [place] [address] Performed By: #### C CBF, [id number] ####[facility] [id number] [address] [place] MACRO%, BF 8 % Low 64-80 [facility] Comment on above: Order Comment: Speci men Type: FLUID SPECIMENOrdering Facility: [facility] Address: [address] [place] [address] Performed By: #### C CBF, [id number] ####[facility] [id number] [address] [place] MESO %, BF 22 % High 0-2 [facility] Comment on above: Order Comment: Speci men Type: FLUID SPECIMENOrdering Facility: [facility] Address: [address] [place] [address] Performed By: #### C CBF, [id number] ####[facility]ORY[facility]IA [id number] [address] [place] MONO% BF 14 % Normal [facility] Comment on above: Order Comment: Speci men Type: FLUID SPECIMENOrdering Facility: [facility] Address: [address] [place] [address] Performed By: #### C CBF, [id number] ####[facility]IA [id number] [address] [place] NEUT%, BF 25 % High 0-1 [facility] Comment on above: Order Comment: Speci men Type: FLUID SPECIMENOrdering Facility: [facility] Address: [address] [place] [address] Performed By: #### C CBF, [id number] ####[facility]IA [id number] [address] Prot Fld-mCncon 01-31-2025 Protein (Body fld) [Mass/Vol] 2.8 g/dL Normal See Comment [facility] Comment on above: Order Comment: Speci men Type: FLUID SPECIMENOrdering Facility: [facility] Address: [address] [place] [address] Result Comment: Sero us fluids: Effusions are [...] document C49A. IVIS Lucas: Clinical Laboratory Standards [place]: 2007. Performed By: #### 2 881-1 ####[facility] LABCLIA [id number] [address] OF [facility]#### 1747-5 ####[facility] LABCLIA [id number] [place] [id number] [facility] LABORATORYCLIA [id number] [place] [address] [place] [facility] US ABD RIGHT UPPER QUADRANTo n 01-31-2025 US ABD RIGHT UPPER QUADRANT * * *Final Report* * * DATE OF EXAM: Jan 31 2025 6:53AM [place] 1032 - US ABD RIGHT UPPER QUADRANT [...] No gallstones. 4. No bile duct dilatation. Plant Wrapper: [facility] Transcribe Date/Time: Jan 31 2025 8:18A Dictated by : NGHIA LOBO MD This examination was interpreted and the report reviewed and electronically signed by: NGHIA LOBO MD on Jan 31 2025 8:21AM EST [id number] N Normal [facility] US ABD SPLEEN -NBon 02-01-20 US ABD SPLEEN -NB * * *Final Report* * * DATE OF EXAM: Jan 31 2025 6:53AM [facility] 1232 - US ABD SPLEEN -NB / [...] No gallstones. 4. No bile duct dilatation. Plant Wrapper: [facility] Transcribe Date/Time: Jan 31 2025 8:18A Dictated by : NGHIA LOBO MD This examination was interpreted and the report reviewed and electronically signed by: NGHIA LOBO MD on Jan 31 2025 8:21AM EST [id number] N Normal [facility] US PARACENTESIS BIon 025 US PARACENTESIS BI * * *Final Report* * * DATE OF EXAM: Jan 31 2025 8:29AM [facility] 9 - US PARACENTESIS BI / PROCEDURE REASON: [...] prepped, and anesthetized. With ultrasound guidance a 5-Nepalese Yueh needle and sheath was passed into the peritoneal space and 4600 cc of straw colored fluid was withdrawn. Specimens were sent for laboratory evaluation. There were no apparent complications. FINDINGS: Ultrasound revealed a generous amount of ascites containing no debris. IMPRESSION: Technically successful ultrasound guided paracentesis yielded 4600 cc of straw colored fluid. Albumin ordered: 0 g. Plant Wrapper[facility] Transcribe Date/Time: Jan 31 2025 8:45A Dictated by : TRANG JEFFERS CNP This examination was interpreted and the report reviewed and electronically signed by: TRANG JEFFERS CNP on Jan 31 2025 8:46AM EST [id number] N Normal [facility] CBC panel Auto (Bld)on 01-30 Erythrocyte distribution width (RBC) [Ratio] 16.2 % High 11.5-15.0 [facility] Comment on above: Order Comment: Speci men Type: BLOOD SPECIMEN Ordering Facility: [facility] Address: [address] [place] [address] Performed By: #### 2 4325-3 #### [facility] CLIA [id number] [address] [place] [address] [place] Hematocrit (Bld) [Volume fraction] 42.4 % Normal 39.0-51.0 [facility] Comment on above: Order Comment: Speci men Type: BLOOD SPECIMEN Ordering Facility: [facility] Address: [address] [place] [address] Performed By: #### 2 4325-3 #### [facility] CLIA [id number] [address] STATES OF [facility] Hemoglobin (Bld) [Mass/Vol] 13.4 g/dL Normal 13.0-17.0 [facility] Comment on above: Order Comment: Speci men Type: BLOOD SPECIMEN Ordering Facility: [facility] Address: [address] [place] [address] Performed By: #### 2 432-3 #### [facility] CLIA [id number] [address] OF [facility] MCH (RBC) [Entitic mass] 33.2 pg Normal 26.0-34.0 [facility] Comment on above: Order Comment: Speci men Type: BLOOD SPECIMEN Ordering Facility: [facility] Address: [address] [place] [address] Performed By: #### 2 4325-3 #### [facility] CLIA [id number] [address] MCHC (RBC) [Mass/Vol] 31.6 g/dL Normal 30.5-36.0 [facility] Comment on above: Order Comment: Speci men Type: BLOOD SPECIMEN Ordering Facility: [facility] Address: [address] [place] [address] Performed By: #### 2 4325-3 #### [facility] CLIA [id number] [address] [place] MCV (RBC) [Entitic vol] 105.0 fL High 80.0-100.0 [facility] Comment on above: Order Comment: Speci men Type: BLOOD SPECIMEN Ordering Facility: [facility] Address: [address] [place] [address] Performed By: #### 2 4325-3 #### [facility] CLIA [id number] [address] OF [place] Nucleated RBC (Bld) [#/Vol] 0.02 10*3/uL High <0.01 [facility] Comment on above: Order Comment: Speci men Type: BLOOD SPECIMEN Ordering Facility: [facility] Address: [address] [place] [address] Performed By: #### 2 4325-3 #### [facility] CLIA [id number] [address] [place] Platelet mean volume (Bld) [Entitic vol] 10.0 fL Normal 9.0-12.7 [facility] Comment on above: Order Comment: Speci men Type: BLOOD SPECIMEN Ordering Facility: [facility] Address: [address] [place] [address] Performed By: #### 2 4325-3 #### [facility] CLIA [id number] [address] Platelets (Bld) [#/Vol] 383 10*3/uL Normal 150-400 [facility] Comment on above: Order Comment: Speci men Type: BLOOD SPECIMEN Ordering Facility: [facility] Address: [address] [place] [address] Performed By: #### 2 4325-3 #### [facility] CLIA [id number] [address] OF [place] RBC (Bld) [#/Vol] 4.04 10*6/uL Low 4.20-6.00 [facility] Comment on above: Order Comment: Speci men Type: BLOOD SPECIMEN Ordering Facility: [facility] Address: [address] [place] [address] Performed By: #### 2 4325-3 #### [facility] CLIA [id number] [address] [place] WBC (Bld) [#/Vol] 7.37 10*3/uL Normal 3.70-11.00 [facility] Comment on above: Order Comment: Speci men Type: BLOOD SPECIMEN Ordering Facility: [facility] Address: [address] [place] [address], [place] [address] Performed By: #### 2 4325-3 #### [facility] CLIA [id number] [address] [place] CONSULTon 01-30-2025 CONSULT HNO ID: [id number] Author: CHAUNCEY GARCIA MD Service: Gastroenterology Author [...] and Bumex, CKD-3, LBBB, DVT, transferred from [place] where he presented with abdominal pain, shortness of breath, cough. 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 Of note, patient admitted at [facility] in August 2024 for similar complaints when extensive work up showed unremarkable/negative viral hepatitis, ceruloplasmin, iron studies, alpha 1 antitrypsin, ASMA, AMA, TSH, HIV1/2, Syphilis. His LFTs have shown elevated bilirubin and mild ALT/AST/ALK P elevation since at least 1 year. CBC with normal platelet count (384 - most recent). Last imaging on [facility] -CT from 08/2024 - no splenomegaly. US [...] and Bumex, CKD-3, LBBB, DVT, transferred from [place] where he presented with abdominal pain, shortness [...] questions. Chauncey Garcia MD 9:47 AM Normal [facility] CONSULT HNO ID: [id number] Author: GUS RESENDEZ MD Service: Clinical Cardiology [...] fraction,, and has had multiple admissions to [facility] (most recent admission to [facility] was in 01/21, where he was [...] than 150 ms. He was admitted to [facility] withlower extremity edema, abdominal bloating. Apparently, this [...] tolerate multip (more content not included)... Normal [facility] Comprehensive metabolic 2000 panelon 01-30-2025 Albumin [Mass/Vol] 3.4 g/dL Low 3.9-4.9 [facility] Comment on above: Order Comment: Speci men Type: BLOOD SPECIMEN Ordering Facility: [facility] Address: [address] [place] [address] Performed By: #### 2 4325-3 #### [facility] CLIA [id number] [address] [place] [address] ALP [Catalytic activity/Vol] 436 U/L High 38-113 [facility] Comment on above: Order Comment: Speci men Type: BLOOD SPECIMEN Ordering Facility: [facility] Address: [address] [place] [address] Performed By: #### 2 4325-3 #### [facility] CLIA [id number] [address] ALT With P-5'-P [Catalytic activity/Vol] 10 U/L Normal 10-54 [facility] Comment on above: Order Comment: Speci men Type: BLOOD SPECIMEN Ordering Facility: [facility] Address: [address] [place] [address] Performed By: #### 2 4325-3 #### [facility] CLIA [id number] [address] Anion gap [Moles/Vol] 17 mmol/L High 8-15 [facility] Comment on above: Order Comment: Speci men Type: BLOOD SPECIMEN Ordering Facility: [facility] Address: [address] [place] [address] Performed By: #### 2 4325-3 #### [facility] CLIA [id number] [address] AST With P-5'-P [Catalytic activity/Vol] 15 U/L Normal 14-40 [facility] Comment on above: Order Comment: Speci men Type: BLOOD SPECIMEN Ordering Facility: [facility] Address: [address] [place] [address] Performed By: #### 2 4325-3 #### [facility] CLIA [id number] [address] [place] Bilirubin [Mass/Vol] 3.8 mg/dL High 0.2-1.3 [facility] Comment on above: Order Comment: Speci men Type: BLOOD SPECIMEN Ordering Facility: [facility] Address: [address] [place] [address] Performed By: #### 2 4325-3 #### [facility] CLIA [id number] 1 [place] [address] [place] Calcium [Mass/Vol] 9.1 mg/dL Normal 8.5-10.2 [facility] Comment on above: Order Comment: Speci men Type: BLOOD SPECIMEN Ordering Facility: [facility] Address: [address] [place] [address] Performed By: #### 2 4325-3 #### [facility] CLIA [id number] 1 [place] [address] [place] Chloride [Moles/Vol] 104 mmol/L Normal 98-107 [facility] Comment on above: Order Comment: Speci men Type: BLOOD SPECIMEN Ordering Facility: [facility] Address: [address] [place] [address] Performed By: #### 2 4325-3 #### [facility] CLIA [id number] [address] [place] CO2 [Moles/Vol] 23 mmol/L Normal 22-30 [facility] Comment on above: Order Comment: Speci men Type: BLOOD SPECIMEN Ordering Facility: [facility] Address: [address] [place] [address] Performed By: #### 2 4325-3 #### [facility] CLIA [id number] [address] [place] Creatinine [Mass/Vol] 2.24 mg/dL High 0.73-1.22 [facility] Comment on above: Order Comment: Speci men Type: BLOOD SPECIMEN Ordering Facility: [facility] Address: [address] [place] [address] Performed By: #### 2 4325-3 #### [facility] CLIA [id number] [address] [place] eGFRcr SerPlBld CKD-EPI 2020 36 mL/min/1.73m??? Low >=60 [facility] Comment on above: Order Comment: Speci men Type: BLOOD SPECIMEN Ordering Facility: [facility] Address: [address] [place] [address] Result Comment: Ella mated Glomerular Filtration Rate [...] GFR. Performed By: #### 2 4325-3 #### [facility] CLIA [id number] [address] [place] [address] [place] Glucose [Mass/Vol] 101 mg/dL High 74-99 [facility] Comment on above: Order Comment: Sunni reynoso Type: BLOOD SPECIMEN Ordering Facility: [facility] Address: [address] [place] [address] Result Comment: The [place] Diabetes Association (ADA) provides guidance for cutoff [...] Standards of Medical Care in Diabetes 2016, [place] [employer] Association. Diabetes Care. 2016.39(Suppl 1). Performed By: #### 2 4325-3 #### [facility] CLIA [id number] [address] [place] Potassium [Moles/Vol] 4.0 mmol/L Normal 3.7-5.1 [facility] Comment on above: Order Comment: Sunni reynoso Type: BLOOD SPECIMEN Ordering Facility: [facility] Address: [address] [place] [id number] Performed By: #### 2 4325-3 #### [facility] CLIA [id number] 1 [place] [address] [place] Protein [Mass/Vol] 6.6 g/dL Normal 6.3-8.0 [facility] Comment on above: Order Comment: Speci men Type: BLOOD SPECIMEN Ordering Facility: [facility] Address: [address] [place] [address] Performed By: #### 2 4325-3 #### [facility] CLIA [id number] [address] OF [facility] Sodium [Moles/Vol] 144 mmol/L Normal 136-144 [facility] Comment on above: Order Comment: Speci men Type: BLOOD SPECIMEN Ordering Facility: [facility] Address: [address] [place] [address] Performed By: #### 2 4325-3 #### [facility] CLIA [id number] [address] STATES [facility] Urea nitrogen [Mass/Vol] 31 mg/dL High 9-24 [facility] Comment on above: Order Comment: Speci men Type: BLOOD SPECIMEN Ordering Facility: [facility] Address: [address] [place] [address] Performed By: #### 2 4325-3 #### [facility] CLIA [id number] [address] DIRECT BILIRUBIN BLOODon Bilirubin.conjugated [Mass/Vol] 2.6 mg/dL High <0.3 [facility] Comment on above: Order Comment: Speci men Type: BLOOD SPECIMEN Ordering Facility: [facility] Address: [address] [place] [address] Performed By: #### 2 4325-3 #### [facility] CLIA [id number] [address] [place] ECG COMPLETEon 01-30-2025 ECG COMPLETE Ventricular Rate : 9 5 BPM Atrial Rate : 95 BPM P-R Interval : 144 ms QRS Duration : 156 ms Q-T Interval : 442 ms QTC Calculation(Bazett) : 555 ms Calculated P [place] : 71 degrees Calculated R [place] : 153 degrees Calculated T [place] : -29 degrees SINUS RHYTHM WITH PREMATURE ATRIAL COMPLEXES WITH ABERRANT CONDUCTION POSSIBLE LEFT ATRIAL ENLARGEMENT NON-SPECIFIC INTRA-VENTRICULAR CONDUCTION BLOCK POOR R WAVE PROGRESSION WHEN COMPARED WITH ECG OF 23-Feb-2025 21:24, ABERRANT CONDUCTION IS NOW PRESENT QUESTIONABLE CHANGE IN QRS AXIS T WAVE INVERSION NOW EVIDENT IN INFERIOR LEADS Confirmed by MD SOOD DAVID ([id number]) on 01/31/2025 8:37:57 AM NAME : CARLO MEDINA PID : [id number] : 1980 Gender : Male Race : ORD : [id number] Procedure Date : Jan 30 2025 00:20:12 [...] INFERIOR LEADS Confirmed by MD SOOD DAVID ([id number]) on 01/31/2025 8:37:57 AM Test Reason : Shortness of Breath Location : [address] : [place] [address] Overread By : MD SOOD DAVID Edited By : MD SOOD DAVID Referred By : VARGAS REA Acquired by : TIKA MURILLO Normal [facility] HIGH SENSITIVITY TROPONIN To n 01-30-2025 Troponin T.cardiac High sensitivity method [Mass/Vol] 43 ng/L High <12 [facility] Comment on above: Order Comment: Speci men Type: BLOOD SPECIMENOrdering Facility: [facility] Address: [address] [place] [address] Performed By: #### H STNT ####[facility]IA [id number] [place] [address] [place] Troponin T.cardiac High sensitivity method [Mass/Vol] 48 ng/L High <12 [facility] Comment on above: Order Comment: Speci men Type: BLOOD SPECIMENOrdering Facility: [facility] Address: [address] [place] [address] Performed By: #### H STNT ####[facility]ORY[facility]IA [id number] [place] [address] [place] Magnesium SerPl-mCncon 01-30 Magnesium [Mass/Vol] 2.3 mg/dL Normal 1.7-2.3 [facility] Comment on above: Order Comment: Speci men Type: BLOOD SPECIMEN Ordering Facility: [facility] Address: [address] [place] [address] Performed By: #### 2 4325-3 #### [facility] CLIA [id number] [address] NT-proBNP SerPl-mCncon 01-30 Natriuretic peptide.B prohormone N-Terminal [Mass/Vol] 41694 pg/mL High <125 [facility] Comment on above: Order Comment: Specdaniella angeles Type: BLOOD SPECIMENOrdering Facility: [facility] Address: [address] [place] [address] Performed By: #### D EVANS, 14036-4, 63552-8, 91221-6 ####[facility]IA [id number] [address] NURSING PROGon 01-30-2025 NURSING PROG HNO ID: [id number] Author: MARYJANE HERCULES RN Service: Nursing Author [...] physician know as well as cardiology. Normal [facility] PT panel Coag (PPP)on 2024 INR Coag (PPP) [Relative time] 1.4 {INR} High 0.9-1.3 [facility] Comment on above: Order Comment: Speci angeles Type: BLOOD SPECIMENOrdering Facility: [facility] Address: [address] [place] [address] Result Comment: Gayla min K Antagonist (VKA) Therapeutic Range: INR 2 to 3 (Target INR of 2.5) Note: For patients treated with VKA drugs, such as warfarin, the [place] [employer] 2012 Guideline recommends [...] Chest 2012, 141:7S-47S Evelyn RA, et al. [facility] 2017, 70: 252-289 Performed By: #### 1 4979-9, 97791-1 ####[facility]IA [id number] [place] [address] [place] PT Coag (PPP) [Time] 15.0 s High 9.7-13.0 [facility] Comment on above: Order Comment: Speci men Type: BLOOD SPECIMENOrdering Facility: [facility] Address: [address] [place] [address] Performed By: #### 1 4979-9, 87814-8 ####[facility]ORYCLIA [id number] [place] [address] [place] [facility] XR CHEST 1V FRONTALon 2024 XR [...] 1. No acute findings. 2. Unchanged cardiomegaly. Plant Wrapper: PSCB Transcribe Date/Time: Jan 30 2025 1:59A Dictated by : ALONZO JJ MD This examination was interpreted and the report reviewed and electronically signed by: ALONZO JJ MD on Jan 30 2025 2:01AM EST [id number] Normal [facility] aPTT PPPon 01-30-2025 aPTT Coag (PPP) [Time] 31.1 s Normal 23.0-32.4 [facility] Comment on above: Order Comment: Speci men Type: BLOOD SPECIMENOrdering Facility: [facility] Address: [address] [place] [address] Performed By: #### 1 4979-9, 09074-8 ####[facility]ORYCLIA [id number] [place] [address] [facility] 12 Lead EKGon 01-29-2025 12 Lead EKG [facility] Cardiovascular Services [address] [place] [address] 12 Lead EKG 01/29/25 0814 MR#: [id number] Acct: [id number] Name: CARLO MEDINA Rep #: [id number] : 1980 44 From: Clark Almaraz MD [...] ECG Confirmed by CLARK ALMARAZ MD ([id number]), sports editor RADHA DUONG ([id number]) on 02/01/2025 7:54:42 AM Referred By: Confirmed By: CLARK ALMARAZ MD 02/01/25 0754 Date Clark Almaraz MD CC: Dr. Vargas Rea DO; No Primary Care Physician Signed Normal [facility] Abdomen Completeon Abdomen Complete [facility] Imaging Services [address] [place], [place] [address] Abdomen Complete MR#: [id number] Acct: [id number] Name: CARLO MEDINA Rep #: [id number] : 1980 M 44 From: Leatha Wallace nd, MD PCP: Care Physician,No Primary Status: REG ER Study: Abdomen Complete Date of Exam: 01/29/25 Exam# [id number] Ordering Dr: Vargas Rea DO PROCEDURE: ABDOMEN [...] further evaluation as clinically indicated. Reading Location: [facility] CC: Dr. Vargas Rea DO; No Primary Care Physician Plant Wrapper: Signed Normal [facility] Abdomen/Pelvis W IV Cont ONL Yon 01-29-2025 Abdomen/Pelvis W IV Cont ONLY [facility] Imaging Services [address] [place] [address] Abdomen/Pelvis W IV Cont ONLY MR#: [id number] Acct: [id number] Name: CARLO MEDINA Rep #: [id number] : 1980 M 44 From: Leatha Wallace nd, MD PCP: Care Physician,No Primary Status: REG ER Study: Abdomen/Pelvis W IV Cont ONLY Date of Exam: Exam# [id number] Ordering Dr: Vargas Rea DO PROCEDURE: ABDOMEN/PELVIS [...] volume ascites. 4. Severe cardiomegaly. Reading Location: [id number] CC: Dr. Vargas Rea DO; No Primary Care Physician Plant Wrapper: Signed Normal [facility] Absolute lymphocyte countOrd ered By: Vargas Rea on 01-29-2025 Lymphocytes Auto (Unsp spec) [#/Vol] 2.12 10*3/uL 0.83-4.51 [facility] Absolute neutrophil countOrd ered By: Vargas Rea on 01-29-2025 Neutrophils (Bld) [#/Vol] 4.7 10*3/uL 2.0-7.7 [facility] Activated partial thrombopla stin time (aPTT) in platelet poor plasma by coagulation aOrdered By: Vargas Rea on 01-29-2025 aPTT Coag (PPP) [Time] 32.5 s 24.1-36.2 [facility] Anion gap in Serum or Plasma Ordered By: Vargas Rea on 01-29-2025 Anion gap [Moles/Vol] 16 mmol/L High 5-15 [facility] Automated lymphocyte count a s percentage of total leukocytesOrdered By: Vargas Rea on 01-29-2025 Lymphocytes/100 WBC Auto (Unsp spec) 28.4 % 19-41 [facility] BUN/creatinine ratioOrdered By: Vargas Rea on 01-29-2025 Urea nitrogen/Creatinine [Mass ratio] 14.7 mg/mg 10-20 [facility] Basic Metabolic Profile (BMP )on 01-29-2025 BUN/CRE 14.7 RATIO Normal - [facility] Comment on above: Performed By: #### L 500.4050 #### [facility] [address] [place], [address] Calcium [Mass/Vol] 9.1 mg/dL Normal 7.6-11.0 [facility] Comment on above: Performed By: #### L 500.4050 #### [facility] [address] [place], [address] Chloride [Moles/Vol] 104 mmol/L Normal 98-108 [facility] Comment on above: Performed By: #### L 500.4050 #### [facility] [address] [place], [address] CO2 [Moles/Vol] 21.1 mmol/L Normal 21.0-32.0 [facility] Comment on above: Performed By: #### L 500.4050 #### [facility] [address] [place], [address] Creatinine [Mass/Vol] 2.47 mg/dL High 0.70-1.20 [facility] Comment on above: Result Comment: Icte lizet present, Results may be affected. Performed By: #### L 500.4050 #### [facility] [address] [place], [address] ECRCL 41.81 ml/min Low 50-250 [facility] Comment on above: Performed By: #### L 500.4050 #### [facility] [address] [place], [address] GAP 16 High 5-15 [facility] Comment on above: Performed By: #### L 500.4050 #### [facility] [address] [place], [address] GFR/1.73 sq M.predicted among non-blacks MDRD (S/P/Bld) [Vol rate/Area] 32 mL/min/{1.73_m2} Low >60 [facility] Comment on above: Result Comment: mL/m in/1.73m2 CKD-EPI Creatinine Equation (2020) Performed By: #### L 500.4050 #### [facility] [address] [place], [address] Glucose [Mass/Vol] 130 mg/dL High 70-99 [facility] Comment on above: Performed By: #### L 500.4050 #### [facility] [address] [place], [address] Potassium [Moles/Vol] 4.4 mmol/L Normal 3.3-5.1 [facility] Comment on above: Performed By: #### L 500.4050 #### [facility] [address] [place], [address] Sodium [Moles/Vol] 141 mmol/L Normal 133-145 [facility] Comment on above: Performed By: #### L 500.4050 #### [facility] [address] [place], [address] Urea nitrogen [Mass/Vol] 36 mg/dL High 4-19 [facility] Comment on above: Performed By: #### L 500.4050 #### [facility] [address] [place], [address] Basophil percentageOrdered B y: Vargas Rea on 01-29-2025 Basophils/100 WBC (Bld) 0.7 % 0-1 [facility] Bilirubin directOrdered By: Vargas Rea on 01-29-2025 Bilirubin.direct [Mass/Vol] 3.02 mg/dL High 0.00-0.30 [facility] Bilirubin, totalOrdered By: Vargas Rea on 01-29-2025 Bilirubin [Mass/Vol] 4.74 mg/dL High 0.00-1.30 [facility] CBC W/Diff, Automatedon Absolute Lymph 2.12 X10 3/uL Normal 0.83-4.51 [facility] Comment on above: Performed By: #### L 500.4050 #### [facility] [address] [place], [address] Absolute Neut 4.7 X10 3/uL Normal 2.0-7.7 [facility] Comment on above: Performed By: #### L 500.4050 #### [facility] [address] [place], [address] Basophils/100 WBC (Bld) 0.7 % Normal 0-1 [facility] Comment on above: Performed By: #### L 500.4050 #### [facility] [address] [place], [address] Eosinophils/100 WBC (Bld) 0.3 % Normal 0-5 [facility] Comment on above: Performed By: #### L 500.4050 #### [facility] [address] [place], [address] Erythrocyte distribution width (RBC) [Ratio] 16.3 % High 11.6-14.6 [facility] Comment on above: Performed By: #### L 500.4050 #### [facility] [address] [place], [address] Hematocrit (Bld) [Volume fraction] 42.0 % Normal 40-54 [facility] Comment on above: Performed By: #### L 500.4050 #### [facility] [address] [place], [address] Hemoglobin (Bld) [Mass/Vol] 13.4 g/dL Normal 13.0-16.5 [facility] Comment on above: Performed By: #### L 500.4050 #### [facility] [address] [place], [address] IG% 0.300 Normal 0.0-0.9 [facility] Comment on above: Result Comment: IG% - Immature Granulocytes (promyelocytes, myelocytes and metamyelocytes) > 1% indicates that a LEFT SHIFT is Present. Performed By: #### L 500.4050 #### [facility] [address] [place], [address] Lymphocytes/100 WBC (Bld) 28.4 % Normal 19-41 [facility] Comment on above: Performed By: #### L 500.4050 #### [facility] [address] [place], [address] MCH (RBC) [Entitic mass] 32.8 pg High 27.0-32.0 [facility] Comment on above: Performed By: #### L 500.4050 #### [facility] [address] [place], [address] MCHC (RBC) [Mass/Vol] 31.9 g/dL Low 32-36 [facility] Comment on above: Performed By: #### L 500.4050 #### [facility] [address] [place], [address] MCV (RBC) [Entitic vol] 102.9 fL High 80-94 [facility] Comment on above: Performed By: #### L 500.4050 #### [facility] [address] [place], [address] Monocytes/100 WBC (Bld) 8.2 % Normal 0-10 [facility] Comment on above: Performed By: #### L 500.4050 #### [facility] [address] [place], [address] Neutrophils/100 WBC (Bld) 62.1 % Normal 47-70 [facility] Comment on above: Performed By: #### L 500.4050 #### [facility] [address] [place], [address] Nucleated RBC (Bld) [#/Vol] 0.7 10*3/uL Normal 0-5 [facility] Comment on above: Performed By: #### L 500.4050 #### [facility] [address] [place], [address] Platelet mean volume (Bld) [Entitic vol] 10.2 fL Normal 6.2-12.0 [facility] Comment on above: Performed By: #### L 500.4050 #### [facility] [address] [place], [address] Platelets (Bld) [#/Vol] 368 10*3/uL Normal 150-450 [facility] Comment on above: Performed By: #### L 500.4050 #### [facility] [address] [place], [address] RBC (Bld) [#/Vol] 4.08 10*6/uL Low 4.6-6.2 [facility] Comment on above: Performed By: #### L 500.4050 #### [facility] [address] [place], [address] RDW SD 61.2 fl High 35.1-43.9 [facility] Comment on above: Performed By: #### L 500.4050 #### [facility] [address] [place], [address] WBC (Bld) [#/Vol] 7.5 10*3/uL Normal 4.4-11.0 [facility] Comment on above: Performed By: #### L 500.4050 #### [facility] [address] [place], [address] Carbon dioxide, total [Moles /volume] in Central venous bloodOrdered By: Vargas Rea on 01-29-2025 CO2 [Moles/Vol] 21.1 mmol/L 21.0-32.0 [facility] Chest PA and Lateralon 01-29 Chest PA and Lateral [facility] Imaging Services [address] [place] [address] Chest PA and Lateral MR#: [id number] Acct: [id number] Name: CARLO MEDINA Pedro Rep #: [id number] : 1980 M 44 From: Otoniel Rivers MD PCP: Care Physician,No Primary Status: REG ER Study: Chest PA and Lateral Date of Exam: 01/29/25 Exam# [id number] Ordering Dr: Vargas Rea DO PROCEDURE: CHEST [...] acute pulmonary process, stable cardiomegaly Reading Location: [id number] CC: Dr. Vargas Rea DO; No Primary Care Physician Plant Wrapper: Signed Normal [facility] Chloride assayOrdered By: Sam Rea on 01-29-2025 Chloride [Moles/Vol] 104 mmol/L 98-108 [facility] Emergency Department Summary on 01-29-2025 Emergency Department Summary [facility] Medical Records Department [address] [place] [address] Emergency Department Summary 01/29/25 MR#: [id number] Acct: [id number] Name: CARLO MEDINA Rep #: [id number] : 1980 44 From: Vargas Rea DO [...] follow commands that he was at [facility] years 2024 Skin: Warm, dry, tact [...] Once wor (more content not included)... Normal [facility] Eosinophil percentageOrdered By: Vargas Rea on 01-29-2025 Eosinophils/100 WBC (Bld) 0.3 % 0-5 [facility] Erythrocyte distribution wid th ratioOrdered By: Vargas Rea on 01-29-2025 Erythrocyte distribution width (RBC) [Ratio] 16.3 % High 11.6-14.6 [facility] Erythrocyte distribution wid th standard deviationOrdered By: Vargashenry Rea on 01-29-2025 Erythrocyte distribution width (RBC) [Ratio] 61.2 fl High 35.1-43.9 [facility] Glomerular filtration rate ( GFR) estimation/1.73 sq m using serum, plasma, or whole bOrdered By: Vargas Rea on 01-29-2025 GFR/1.73 sq M.predicted among non-blacks MDRD (S/P/Bld) [Vol rate/Area] 32 mL/min/{1.73_m2} Low >60 [facility] Comment on above: mL/min/1.73m2 CKD-EP I Creatinine Equation (2020) HISTORY PHYSICALon HISTORY PHYSICAL HNO ID: [id number] Author: NIC ROSADO MD Service: Hospital Medicine Author Type: Physician Type: H&P Filed: 01/30/2025 05:37 Note Text: DEPARTMENT OF HOSPITAL MEDICINE HISTORY AND PHYSICAL EXAM SERVICE DATE: 01/29/2025 SERVICE TIME: 11:35 PM Primary Care Physician: No primary care provider on file. NIGHT AND WEEKEND COVERAGE: From 7am - 7pm, please call Sound After 7pm, please call cross cover pager #[phone] Subjective CHIEF COMPLAINT: abdominal distension, ble edema, sob HPI: This is a 44 year old male w/ hx HFrEF EF 15% on imdur and bumex, CKD st 3, LBBB, DVT, transferred fr [place] where he presented for worsening abdominal pain [...] Antibody, SS-B Antibody, Centromere Antibody, Hogan Antibody, Hogan/SPEECH LANGUAGE PATHOLOGY ASSISTANT Antibody, SPEECH LANGUAGE PATHOLOGY ASSISTANT Antibody, Scleroderma-70 Antibody, JUAN JOSE-1 Antibody, Ribosomal [...] January 29, 2025 TIME: 11:35 PM etx [id number] Normal [facility] Hematocrit Auto (Bld) [Volum e fraction]Ordered By: Vargas Rea on 01-29-2025 Hematocrit (Bld) [Volume fraction] 42.0 % 40-54 [facility] Hemoglobin measurementOrdere d By: Vargas Rea on 01-29-2025 Hemoglobin (Bld) [Mass/Vol] 13.4 g/dL 13.0-16.5 [facility] Immature granulocytes/100 WB C Auto (Bld)Ordered By: Vargas Rea on 01-29-2025 Immature granulocytes/100 WBC (Bld) 0.300 % 0.0-0.9 [facility] Comment on above: IG% - Immature Granu locytes (promyelocytes, myelocytes and metamyelocytes) > 1% indicates that a LEFT SHIFT is Present. International normalized rat io (INR) calculationOrdered By: Vargas Rea on 01-29-2025 INR Coag (Bld) [Relative time] 1.5 {INR} [facility] L501.4021on 01-29-2025 Trop T High Sen 53 ng/L High <=22 [facility] Comment on above: Result Comment: Crit ical Result(s) Called at: by:??Results read back by same. Critical Result(s) Called to: Driss EVANS () by: Vianey??Results read back by same. Performed By: #### L 500.4050 #### [facility] [address] [place], [place], [address] Laboratory - Chemistry and C hemistry - challengeOrdered By: Vargas Rea on 01-29-2025 AST [Catalytic activity/Vol] 20 U/L <38 [facility] Liver Profileon 01-29-2025 Albumin [Mass/Vol] 3.5 g/dL Normal 3.5-5.0 [facility] Comment on above: Performed By: #### L 500.4050 #### [facility] [address] [place], [address] ALK PHOS 462 U/L High 40-129 [facility] Comment on above: Performed By: #### L 500.4050 #### [facility] [address] [place], [address] ALT [Catalytic activity/Vol] 10 U/L Normal <=46 [facility] Comment on above: Performed By: #### L 500.4050 #### [facility] [address] [place], [address] AST [Catalytic activity/Vol] 20 U/L Normal <=37 [facility] Comment on above: Performed By: #### L 500.4050 #### [facility] [address] [place], [address] Bilirubin [Mass/Vol] 4.74 mg/dL High 0.00-1.30 [facility] Comment on above: Performed By: #### L 500.4050 #### [facility] [address] [place], [address] Bilirubin.direct [Mass/Vol] 3.02 mg/dL High 0.00-0.30 [facility] Comment on above: Performed By: #### L 500.4050 #### [facility] [address] [place], [address] Globulin (S) [Mass/Vol] 3.2 g/dL Normal 2.2-4.2 [facility] Comment on above: Performed By: #### L 500.4050 #### [facility] [address] [place], [address] T PROT 6.7 g/dL Normal 5.9-8.4 [facility] Comment on above: Performed By: #### L 500.4050 #### [facility] [address] [place], [address] MCV (mean corpuscular volume ) determinationOrdered By: Vargas Rea on 01-29-2025 MCV (RBC) [Entitic vol] 102.9 fL High 80-94 [facility] Mean corpuscular hemoglobin (MCH) determinationOrdered By: Vargas Rea on 01-29-2025 MCH (RBC) [Entitic mass] 32.8 pg High 27.0-32.0 [facility] Mean corpuscular hemoglobin concentration (MCHC) determinationOrdered By: Vargas Rea on 01-29-2025 MCHC (RBC) [Mass/Vol] 31.9 g/dL Low 32-36 [facility] Mean platelet volume determi nationOrdered By: Vargas Rea on 01-29-2025 Platelet mean volume (Bld) [Entitic vol] 10.2 fL 6.2-12.0 [facility] Monocyte percentageOrdered B y: Vargas Rea on 01-29-2025 Monocytes/100 WBC (Bld) 8.2 % 0-10 [facility] Natriuretic peptide.B prohor justin N-Terminal [Mass/volume] in Serum or PlasmaOrdered By: Vargas Rea on 01-29-2025 Natriuretic peptide.B prohormone N-Terminal [Mass/Vol] 22434 pg/mL High <450 [facility] Comment on above: Heart Failure Unlike ly: < 300 pg/mLHeart Failure Likely< 50 Years: > 450 pg/mL50-75 Years: > 900 pg/mL>75 Years: > 1800 pg/mL Neutrophil percentageOrdered By: Vargas Rea on 01-29-2025 Neutrophils/100 WBC (Bld) 62.1 % 47-70 [facility] Nucleated red blood cell per centageOrdered By: Vargas Rea on 01-29-2025 Nucleated RBC/100 WBC (Bld) [Ratio] 0.7 % 0-5 [facility] Partial Thromboplast Timeon 01-29-2025 aPTT Coag (Bld) [Time] 32.5 s Normal 24.1-36.2 [facility] Comment on above: Order Comment: CHRISTOFER Link PREVIOUS SPECIMEN REJECTED DUE TO QNS. 01/29/25 0840 [place]. Performed By: #### L 300.4310, L300.3900 #### [facility] [address] [place], [address] Platelet countOrdered By: Sam Rea on 01-29-2025 Platelets (Bld) [#/Vol] 368 10*3/uL 150-450 [facility] Potassium measurement (mass/ volume)Ordered By: Vargas Rea on 01-29-2025 Potassium (Unsp spec) [Mass/Vol] 4.4 mmol/L 3.3-5.1 [facility] Pro- Brain NATRIURETIC PEPTI Saroj 01-29-2025 Natriuretic peptide B (Bld) [Mass/Vol] 73985 pg/mL High <=450 [facility] Comment on above: Result Comment: Hear t Failure Unlikely: < 300 pg/mL Heart Failure Likely < 50 Years: > 450 pg/mL 50-75 Years: > 900 pg/mL >75 Years: > 1800 pg/mL Performed By: #### L 500.4050, L100.0100 #### [facility] [address] [place], [address] Prothrombin Time w/INRon INR Coag (PPP) [Relative time] 1.5 {INR} Normal [facility] Comment on above: Order Comment: REDRA W. PREVIOUS SPECIMEN REJECTED DUE TO QNS. 01/29/25 0840 [place]. Performed By: #### L 300.4310, L300.3900 #### [facility] [address] [place], [address] PT Coag (PPP) [Time] 18.8 s High 11.7-14.9 [facility] Comment on above: Order Comment: REDRA W. PREVIOUS SPECIMEN REJECTED DUE TO QNS. 01/29/25 0840 [place]. Performed By: #### L 300.4310, L300.3900 #### [facility] [address] [place], [address] INR Normal [facility] Comment on above: Result Comment: This specimen has been REJECTED due to Laboratory criteria: Quanity Not Sufficient. GABY has been notified of need of recollection. 01/29/2539 [place] Performed By: #### L 300.3900 #### [facility] [address] [place], [place], [address] PROTIME Normal 11.7-14.9 [facility] Comment on above: Result Comment: This specimen has been REJECTED due to Laboratory criteria: Quanity Not Sufficient. GABY has been notified of need of recollection. 01/29/2539 [place] Performed By: #### L 300.3900 #### [facility] [address] [place], [address] Prothrombin timeOrdered By: Vargas Rea on 01-29-2025 PT Coag (PPP) [Time] 18.8 s High 11.7-14.9 [facility] RBC Auto (Bld) [#/Vol]Ordere d By: Vargas Rea on 01-29-2025 RBC (Bld) [#/Vol] 4.08 10*6/uL Low 4.6-6.2 [facility] Serum creatinine measurement (mass/volume)Ordered By: Vargas Rea on 01-29-2025 Creatinine [Mass/Vol] 2.47 mg/dL High 0.70-1.20 [facility] Comment on above: Icterus present, Res ults may be affected. Serum globulin measurementOr dered By: Vargas Rea on 01-29-2025 Globulin (S) [Mass/Vol] 3.2 g/dL 2.2-4.2 [facility] Serum glucose measurement (m ass/volume)Ordered By: Vargas Rea on 01-29-2025 Glucose [Mass/Vol] 130 mg/dL High 70-99 [facility] Serum or plasma alanine de paz otransferase (ALT) measurementOrdered By: Vargas Rea on 01-29-2025 ALT [Catalytic activity/Vol] 10 U/L <47 [facility] Serum or plasma albumin fidel urement (mass/volume)Ordered By: Vargas Rea on 01-29-2025 Albumin [Mass/Vol] 3.5 g/dL 3.5-5.0 [facility] Serum or plasma alkaline nick sphatase measurementOrdered By: Vargas Rea on 01-29-2025 ALP [Catalytic activity/Vol] 462 U/L High 40-129 [facility] Serum or plasma calcium fidel urement (mass/volume)Ordered By: Vargas Rea on 01-29-2025 Calcium [Mass/Vol] 9.1 mg/dL 7.6-11.0 [facility] Serum or plasma urea nitroge n measurement (mass/volume)Ordered By: Vargas Rea on 01-29-2025 Urea nitrogen [Mass/Vol] 36 mg/dL High 4-19 [facility] Sodium levelOrdered By: Tammi Rea on 01-29-2025 Sodium [Moles/Vol] 141 mmol/L 133-145 [facility] Total proteinOrdered By: Lucía Rea on 01-29-2025 Protein [Mass/Vol] 6.7 g/dL 5.9-8.4 [facility] Troponin T HS 2 HRon 025 Trop T High Sen 55 ng/L Invalid Interpretation Code <=22 [facility] Comment on above: Result Comment: Crit ical Result(s) Called to: Nathan EVANS (ER) by: Vianey??Results read back by same. Performed By: #### L 499.0042 #### [facility] [address] [place], [address] Troponin T HS 4 HRon 025 Trop T High Sen 49 ng/L High <=22 [facility] Comment on above: Performed By: #### L 499.0043 #### [facility] [address] [place], [address] Troponin T.cardiac [Mass/vol ume] in Serum or Plasma by High sensitivity methodOrdered By: Vargas Rea on 01-29-2025 Troponin T.cardiac High sensitivity method [Mass/Vol] 49 ng/L High <22 [facility] Troponin T.cardiac High sensitivity method [Mass/Vol] 55 ng/L High <22 [facility] Comment on above: Critical Result(s) C alled to: Nathan RN (ER) by: Vianey Results read back by same. Troponin T.cardiac High sensitivity method [Mass/Vol] 53 ng/L High <22 [facility] Comment on above: Delta: 45 on [phone] Result(s) Called at: by: Results read back by same.Critical Result(s) Called to: Driss EVANS (ER) by: Vianey Results read back by same. White blood cell (WBC) count Ordered By: Vargas Rea on 01-29-2025 WBC (Bld) [#/Vol] 7.5 10*3/uL 4.4-11.0 [facility] CNDSon 01-21-2025 CNDS HNO ID: [id number] Author: MELISSA ORDAZ APRN.NURSE ADVISOR Service: Cardiovascular Medicine Author Type: Nurse Practitioner Type: Discharge Summary Filed: 01/21/2025 12:42 Note Text: Attestation signed by Maged Correa MD at 01/21/2025 3:48 PM [facility] STAFF PHYSICIAN NOTE OF PERSONAL INVOLVEMENT [...] Code Status: Not on file Primary Service: Linda Ta Clinical Architectural Drafting Instructor/Pa Admission Diagnosis: Acute decompensated heart failure (HCC) [...] as he refuses medical therapy. PHYSICAL EXAM: 01/20/25 2046 01/21/25 0215 01/21/25 0608 01/21/25 [...] Medication List (more content not included)... Normal [facility] ECHOon 01-21-2025 Echocardiography Echocardiography Report: Transthoracic Echo [facility] Bedside Date of service: 01/21/2025 9:06:51 AM MOLDER Ordering physician: LA YUN Exam indication: Evaluation [...] for comparison. (more content not included)... Normal [facility] NURSING PROGon 01-21-2025 NURSING PROG HNO ID: [id number] Author: TAQUERIA VELEZ RN Service: Nursing Author Type: Registered Nurse Type: Nursing Progress Note Filed: 01/21/2025 11:18 Note Text: Pt declined resuming Losartan. Pt states, I am fine with just taking the meds I take at home. I only came here for the defibrillator, not to take new meds. RN explained to pt EP recommendation is to optimize GDMT prior to considering CLEARANCE REP-D placement. Pt is agreeable to IV diuretics, [...] certified nurse come in. Melissa Ordaz APRN, NURSE ADVISOR notified. Normal [facility] NURSING PROG HNO ID: [id number] Author: YASMEEN MEJIA RN Service: Nursing Author [...] Educated provided. Reach out to MD Cora Sánchez ok to move 0600 IVP lasix to 0900 in order to check potassium when pt is agreeable Normal [facility] PT EDon 01-21-2025 PT ED HNO ID: [id number] Author: GABY GUIDRY RPh Service: Pharmacy Author Type: Pharmacist Type: Patient [...] RECOMMENDATIONS (IF ANY): None SIGNATURE: Gaby Guidry RPh PAGER: [phone] Normal [facility] Progress Noteson 01-21-2025 Business Banking Sales Assistant Authentication Interface Message Text Normal [facility] CBC panel Auto (Bld)on 01-20 Erythrocyte distribution width (RBC) [Ratio] 15.8 % High 11.5-15.0 [facility] Comment on above: Order Comment: Speci men Type: BLOOD SPECIMENOrdering Facility: [facility] Address: [address] [place] [address] Performed By: #### 5 8410-2 ####[facility] LABIA [id number] [place] [address] [place] Hematocrit (Bld) [Volume fraction] 39.5 % Normal 39.0-51.0 [facility] Comment on above: Order Comment: Speci men Type: BLOOD SPECIMENOrdering Facility: [facility] Address: [address] [place] [address] Performed By: #### 5 8410-2 ####[facility]IA [id number] [place] [address] [place] Hemoglobin (Bld) [Mass/Vol] 12.9 g/dL Low 13.0-17.0 [facility] Comment on above: Order Comment: Speci men Type: BLOOD SPECIMENOrdering Facility: [facility] Address: [address] [place] [address] Performed By: #### 5 8410-2 ####[facility] LABIA [id number] [place] [address] [place] MCH (RBC) [Entitic mass] 33.4 pg Normal 26.0-34.0 [facility] Comment on above: Order Comment: Speci men Type: BLOOD SPECIMENOrdering Facility: [facility] Address: [address] [place] [address] Performed By: #### 5 8410-2 ####[facility]IA [id number] [place] [address] [place] MCHC (RBC) [Mass/Vol] 32.7 g/dL Normal 30.5-36.0 [facility] Comment on above: Order Comment: Speci men Type: BLOOD SPECIMENOrdering Facility: [facility] Address: [address] [place] [address] Performed By: #### 5 8410-2 ####[facility]IA [id number] [place] [address] [place] MCV (RBC) [Entitic vol] 102.3 fL High 80.0-100.0 [facility] Comment on above: Order Comment: Speci men Type: BLOOD SPECIMENOrdering Facility: [facility] Address: [address] [place] [address] Performed By: #### 5 8410-2 ####[facility] [id number] [place] [address] [place] Nucleated RBC (Bld) [#/Vol] 0.02 10*3/uL High <0.01 [facility] Comment on above: Order Comment: Speci men Type: BLOOD SPECIMENOrdering Facility: [facility] Address: [address] [place] [address] Performed By: #### 5 8410-2 ####[facility] [id number] [place] [address] [place] Platelet mean volume (Bld) [Entitic vol] 10.4 fL Normal 9.0-12.7 [facility] Comment on above: Order Comment: Speci men Type: BLOOD SPECIMENOrdering Facility: [facility] Address: [address] [place] [address] Performed By: #### 5 8410-2 ####[facility] [id number] [place] [address] [place] Platelets (Bld) [#/Vol] 287 10*3/uL Normal 150-400 [facility] Comment on above: Order Comment: Speci men Type: BLOOD SPECIMENOrdering Facility: [facility] Address: [address] [place] [address] Performed By: #### 5 8410-2 ####[facility] LABCLIA [id number] [place] [id number] [place] RBC (Bld) [#/Vol] 3.86 10*6/uL Low 4.20-6.00 [facility] Comment on above: Order Comment: Speci men Type: BLOOD SPECIMENOrdering Facility: [facility] Address: [address] [place] [address] Performed By: #### 5 8410-2 ####[facility] LABCLIA [id number] [place] [id number] [place] WBC (Bld) [#/Vol] 6.85 10*3/uL Normal 3.70-11.00 [facility] Comment on above: Order Comment: Speci men Type: BLOOD SPECIMENOrdering Facility: [facility] Address: [address] [place] [address] Performed By: #### 5 8410-2 ####[facility] LABIA [id number] [place] [id number] [facility] K[facility] 01-20-2025 CONSULT HNO ID: [id number] Author: ROOPA TAVERA DO Service: Cardiovascular Medicine Author Type: Fellow Type: Consults Filed: 01/20/2025 18:24 Note Text: Attestation signed by Roopa Tavera DO at 01/20/2025 6:24 PM [facility] STAFF PHYSICIAN NOTE OF PERSONAL INVOLVEMENT [...] follow up and relates challenges coming to [place] for visits. We discussed if his HF medications are maximized and his LVEF remains reduced (below 35%) when reassessed after three months then we would could proceed with an ICD. I explained the purpose of an ICD and explained the implant procedure, risks,benefits and limitations, sheet rock nailer implications and follow up and addressed his questions. His recent ECG shows a NIVC with QRSd <150msec and would not be likely to benefit from a CLEARANCE REP device, this would certainly need reassessed prior [...] [facility] CARDIOVASCULAR MEDICINE CONSULT NOTE (Template ID [id number]) Carlo Medina [id number] PRIMARY SERVICE: Cardiovascular Medicine - 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/PA CONSULTING SERVICE: Cardiovascular Medicine: EP DATE OF ADMISSION: 01/19/2025 DATE OF CONSULT: 01/20/2025 REASON FOR CONSULT Consideration for CLEARANCE REP-D implantation HISTORY OF PRESENT ILLNESS Carlo Medina [...] while in the CICU in 09/2024 - [facility] 05/2025 without significant CAD. RHC at that time with a CI 1.5 and elevated filling pressures - Has seen a general bottom precipitator operator at [facility], last visit 05/2024 and a HF Imaging Tech (Dr. Astudillo - 07/2024) with some concern [...] 97 Temp (more content not included)... Normal [facility] Comprehensive metabolic 2000 panelon 01-20-2025 Albumin [Mass/Vol] 3.4 g/dL Low 3.9-4.[address] [facility] Comment on above: Order Comment: Speci men Type: BLOOD SPECIMENOrdering Facility: [facility] Address: [address] [place] [address] Performed By: #### 2 4323-8, 2131-9, 6-3, 02071-1, 2275-4, 89295-7 ####[facility] LABIA [id number] [place] [id number] [place] ALP [Catalytic activity/Vol] 459 U/L High 38-113 [facility] Comment on above: Order Comment: Speci men Type: BLOOD SPECIMENOrdering Facility: [facility] Address: [address] [place] [address] Performed By: #### 2 4323-8, 2131-9, 6-3, 86185-0, 4, 13101-3 ####[facility] [id number] [place] [id number] [place] ALT [Catalytic activity/Vol] 23 U/L Normal 10-54 [facility] Comment on above: Order Comment: Speci men Type: BLOOD SPECIMENOrdering Facility: [facility] Address: [address] [place] [address] Performed By: #### 2 4323-8, 2131-9, 6-3, 01048-3, 2275-4, 78269-9 ####[facility] [id number] [place] [id number] [place] Anion gap [Moles/Vol] 18 mmol/L High 8-15 [facility] Comment on above: Order Comment: Speci men Type: BLOOD SPECIMENOrdering Facility: [facility] Address: [address] [place], [place] [address] Performed By: #### 2 4323-8, 2132-9, 3016-3, 84465-9, 6-4, 39605-9 ####[facility] LABCLIA [id number] [place] [id number] [place] AST [Catalytic activity/Vol] 21 U/L Normal 14-40 [facility] Comment on above: Order Comment: Speci men Type: BLOOD SPECIMENOrdering Facility: [facility] Address: [address] [place], [place] [address] Performed By: #### 2 4323-8, 2-9, 3016-3, 18110-4, 2275-4, 04996-5 ####[facility] LABCLIA [id number] [place] [id number] [place] Bilirubin [Mass/Vol] 5.1 mg/dL High 0.2-1.3 [facility] Comment on above: Order Comment: Speci men Type: BLOOD SPECIMENOrdering Facility: [facility] Address: [address] [place], [place] [address] Performed By: #### 2 4323-8, 2-9, 3016-3, 51587-3, 2275-4, 24398-0 ####[facility] [id number] [place] [id number] [place] Calcium [Mass/Vol] 9.4 mg/dL Normal 8.5-10.[address] [facility] Comment on above: Order Comment: Speci men Type: BLOOD SPECIMENOrdering Facility: [facility] Address: [address] [place], [place] [address] Performed By: #### 2 4323-8, 2-9, 3016-3, 71533-0, 2275-4, 21000-8 ####[facility] LABCLIA [id number] [facility] [address] [address] [place] Chloride [Moles/Vol] 101 mmol/L Normal 98-107 [facility] Comment on above: Order Comment: Speci men Type: BLOOD SPECIMENOrdering Facility: [facility] Address: [address] [place] [address] Performed By: #### 2 4323-8, 2-9, 3016-3, 27322-7, 6-4, 05165-8 ####[facility] LABCLIA [id number] [facility] [address] [address] [place] CO2 [Moles/Vol] 22 mmol/L Normal 22-30 [facility] Comment on above: Order Comment: Speci men Type: BLOOD SPECIMENOrdering Facility: [facility] Address: [address] [place] [address] Performed By: #### 2 4323-8, 2-9, 6-3, 12121-7, 6-4, 99325-4 ####[facility] LABCLIA [id number] [address] [address] [place] Creatinine [Mass/Vol] 2.46 mg/dL High 0.73-1.22 [facility] Comment on above: Order Comment: Speci men Type: BLOOD SPECIMENOrdering Facility: [facility] Address: [address] [place] [address] Performed By: #### 2 4323-8, 2-9, 6-3, 47039-4, 6-4, 14546-6 ####[facility] LABCLIA [id number] [address] [address] [place] eGFRcr SerPlBld CKD-EPI 2020 32 mL/min/1.73m??? Low >=60 [facility] Comment on above: Order Comment: Speci men Type: BLOOD SPECIMENOrdering Facility: [facility] Address: [address] [place] [address] [place] [address] Result Comment: Ella mated Glomerular Filtration Rate [...] Performed By: #### 2 4323-8, 2-9, 6-3, 15241-0, 6-4, 78378-8 ####[facility] LABIA [id number] [address] [address] [place] Glucose [Mass/Vol] 102 mg/dL High 74-[address] [facility] Comment on above: Order Comment: Sunni reynoso Type: BLOOD SPECIMENOrdering Facility: [facility] [facility] Address: [address] [place] [address] Result Comment: The [employer] (ADA) provides guidance for cutoff [...] Standards of Medical Care in Diabetes 2016, [employer] [employer]. Diabetes Care. 2016.39(Suppl 1). Performed By: #### 2 4323-8, 2-9, 6-3, 88741-1, 2275-4, 46587-0 ####[facility] LABIA [id number] [address] [address] [place] Potassium [Moles/Vol] 3.8 mmol/L Normal 3.7-5.1 [facility] Comment on above: Order Comment: Speci men Type: BLOOD SPECIMENOrdering Facility: [facility] Address: [address] [place] [address] Performed By: #### 2 4323-8, 2131-9, 3015-3, 32889-2, 4, 77331-1 ####[facility] LAB[facility]IA [id number] [facility] [address] [id number], [place] [address] [place] Protein [Mass/Vol] 6.8 g/dL Normal 6.3-8.[address] [facility] Comment on above: Order Comment: Speci men Type: BLOOD SPECIMENOrdering Facility: [facility] Address: [address] [place], [place] [id number] Performed By: #### 2 4323-8, 9, 3, 63689-2, 4, 92909-2 ####[facility] LABCLIA [id number] [facility] [id number], [place] [address] [place] Sodium [Moles/Vol] 141 mmol/L Normal 136-[address] [facility] Comment on above: Order Comment: Speci men Type: BLOOD SPECIMENOrdering Facility: [facility] Address: [address] [place] [address] [place] [id number] Performed By: #### 2 4323-8, 9, 3, 06373-9, 4, 06673-2 ####[facility] LABCLIA [id number] [facility] [address] [address] [place] [address] [place] Urea nitrogen [Mass/Vol] 41 mg/dL High 9-24 [facility] Comment on above: Order Comment: Speci men Type: BLOOD SPECIMENOrdering Facility: [facility] Address: [address] [place] [id number] Performed By: #### 2 4323-8, 9, 3015-3, 07599-4, 4, 33060-1 ####[facility] LABCLIA [id number] [facility] [place]ENU[place]ES[id number], [place] [address] [place] Ferritin SerPl-mCncon 07-24- 2025 Ferritin [Mass/Vol] 167.0 ng/mL Normal 30.3-565.7 [facility] Comment on above: Order Comment: Speci men Type: BLOOD SPECIMENOrdering Facility: [facility] Address: [address] [place] [address] Performed By: #### 2 4323-8, 2132-9, 3016-3, 57224-8, 2276-4, 45824-7 ####[facility] LABCLIA [id number] [place] [address] [place] Gas and Carbon monoxide pane l (BldV)on 01-20-2025 Base excess Calc (BldV) [Moles/Vol] 0 mmol/L Normal 0-2 [facility] Comment on above: Order Comment: Speci men Type: BLOOD SPECIMEN Ordering [facility]: [facility] Address: [address] [place] [address] Performed By: #### L [id number] #### [facility] CLIA [id number] [address] [place] [address] [place] Body temperature 98.06 [degF] Normal [facility] Comment on above: Order Comment: Speci men Type: BLOOD SPECIMEN Ordering Facility: [facility] Address: [address] [place] [address] Performed By: #### L [id number] #### [facility] CLIA [id number] [address] [place] [address] [place] Calcium.ionized (Bld) [Mass/Vol] 1.13 mmol/L Normal 1.08-1.30 [facility] Comment on above: Order Comment: Speci men Type: BLOOD SPECIMEN Ordering Facility: [facility] Address: [address] [place] [address] Performed By: #### L [id number] #### [facility] CLIA [id number] [address] [place] [address] [place] Calcium.ionized adjusted to pH 7.4 (BldA) [Moles/Vol] 1.13 mmol/L Normal 1.08-1.30 [facility] Comment on above: Order Comment: Speci men Type: BLOOD SPECIMEN Ordering [facility]: [facility] Address: [address] [place] [address] Performed By: #### L [id number] #### [facility] CLIA [id number] [address] [place] [address] [place] Carboxyhemoglobin (BldV) [Mass fraction] 0.4 % Normal 0.0-2.0 [facility] Comment on above: Order Comment: Speci men Type: BLOOD SPECIMEN Ordering Facility: [facility] Address: [address] [place] [address] Result Comment: Carb oxyhemoglobin Reference Range for Smokers: 2.0-8.0% Performed By: #### L [id number] #### [facility] CLIA [id number] [address] [place] [address] [place] CO2 (BldV) [Partial pressure] 39 mm[Hg] Low 42-55 [facility] Comment on above: Order Comment: Speci men Type: BLOOD SPECIMEN [facility]ing [facility]: [facility] Address: [address] [place] [address] Performed By: #### L [id number] #### [facility] CLIA [id number] [address] [place] [address] [place] CO2 adjusted to patient's actual temperature (BldV) [Partial pressure] 38 mmHg Low 42-55 [facility] Comment on above: Order Comment: Speci men Type: BLOOD SPECIMEN Ordering [facility]: [facility] Address: [address] [place] [address] Performed By: #### L [id number] #### [facility] CLIA [id number] [address] [place] [address] [place] Glucose [Mass/Vol] 110 mg/dL High 60-[address] [facility] Comment on above: Order Comment: Speci men Type: BLOOD SPECIMEN Ordering [facility]: [facility] Address: [address] [place] [address] Performed By: #### L [id number] #### [facility] CLIA [id number] [address] [place] [address] [place] HCO3 (Bld) [Moles/Vol] 24 mmol/L Normal 24-28 [facility] Comment on above: Order Comment: Speci men Type: BLOOD SPECIMEN Order[facility]: [facility] Address: [address] [place] [address] Performed By: #### L [id number] #### [facility] CLIA [id number] [address] [place] [address] [place] Hematocrit (Bld) [Volume fraction] 41.6 % Normal 39.0-51.0 [facility] Comment on above: Order Comment: Speci men Type: BLOOD SPECIMEN Ordering Facility: [facility] Address: [address] [place] [address] Performed By: #### L [id number] #### [facility] CLIA [id number] [address] [place] [address] [place] Hemoglobin (Bld) [Mass/Vol] 13.5 g/dL Normal 13.0-17.0 [facility] Comment on above: Order Comment: Speci men Type: BLOOD SPECIMEN [facility] Address: [address] [place] [address] Performed By: #### L [id number] #### [facility] CLIA [id number] [address] [place] [address] [place] Lactate [Moles/Vol] 3.3 mmol/L High 0.5-2.2 [facility] Comment on above: Order Comment: Speci men Type: BLOOD SPECIMEN [facility] Address: [address] [place] [address] Performed By: #### L [id number] #### [facility] CLIA [id number] [address] [place] [id number] [place] Methemoglobin (Bld) [Mass fraction] 0.9 % Normal 0.0-1.5 [facility] Comment on above: Order Comment: Speci men Type: BLOOD SPECIMEN [facility] Address: [address] [place], [place] [id number] Performed By: #### L [id number] #### [facility] CLIA [id number] [address] [place], [place] [address] [place] O2 THERAPY RA=Room Air Normal [facility] Comment on above: Order Comment: Speci men Type: BLOOD SPECIMEN [facility]: [facility] Address: [address] [place] [address] Performed By: #### L [id number] #### [facility] CLIA [id number] [address] [place] [address] [place] Oxygen (BldV) [Partial pressure] 20 mm[Hg] Low 35-45 [facility] Comment on above: Order Comment: Speci men Type: BLOOD SPECIMEN [facility] Address: [address] [place], [place] [address] Performed By: #### L [id number] #### [facility] CLIA [id number] [address] [place], [place] [address] [place] Oxygen adjusted to patient's actual temperature (BldV) [Partial pressure] 20 mmHg Low 35-45 [facility] Comment on above: Order Comment: Speci men Type: BLOOD SPECIMEN [facility]ing [facility]: [facility] Address: [address] [place], [place] [id number] Performed By: #### L [id number] #### [facility] CLIA [id number] [address] [place], [place] [address] [place] Oxygen saturation in Venous blood 16 % Low 60-85 [facility] Comment on above: Order Comment: Speci men Type: BLOOD SPECIMEN Order[facility]: [facility] Address: [address] [place] [address] Performed By: #### L [id number] #### [facility] CLIA [id number] [address] [place] [address] [place] Oxyhemoglobin (BldV) [Mass fraction] 15 % Low 60-85 [facility] Comment on above: Order Comment: Speci men Type: BLOOD SPECIMEN [facility]: [facility] Address: [address] [place] [address] Performed By: #### L [id number] #### [facility] CLIA [id number] [address] [place] [address] [place] pH (BldV) 7.41 [pH] Normal 7.32-7.42 [facility] Comment on above: Order Comment: Speci men Type: BLOOD SPECIMEN Order[facility]: [facility] Address: [address] [place] [address] Performed By: #### L [id number] #### [facility] CLIA [id number] [address] [place] [address] [place] pH adjusted to patient's actual temperature (BldV) 7.42 Normal 7.32-7.42 [facility] Comment on above: Order Comment: Speci men Type: BLOOD SPECIMEN [facility]: [facility] Address: [address] [place] [address] Performed By: #### L [id number] #### [facility] CLIA [id number] [address] [place] [address] [place] Potassium [Moles/Vol] 3.7 mmol/L Normal 3.5-5.0 [facility] Comment on above: Order Comment: Speci men Type: BLOOD SPECIMEN [facility] Address: [address] [place] [address] Performed By: #### L [id number] #### [facility] CLIA [id number] [address] [place] [address] [place] Sodium [Moles/Vol] 141 mmol/L Normal 136-[address] [facility] Comment on above: Order Comment: Speci men Type: BLOOD SPECIMEN [facility]: [facility] Address: [address] [place] [address] Performed By: #### L [id number] #### [facility] CLIA [id number] [address] [place] [address] [place] Iron and Iron binding capaci ty panelon 01-20-2025 Iron [Mass/Vol] 36 ug/dL Low 41-186 [facility] Comment on above: Order Comment: Speci men Type: BLOOD SPECIMENOrdering Facility: [facility] Address: [address] [place] [address] Performed By: #### 2 4323-8, 2131-9, 6-3, 44850-8, 2275-4, 34267-0 ####[facility] LAB[facility]IA [id number] [place] [address] [place] Iron binding capacity [Mass/Vol] 311 ug/dL Normal 232-386 [facility] Comment on above: Order Comment: Speci men Type: BLOOD SPECIMENOrdering Facility: [facility] Address: [address] [place] [address] Performed By: #### 2 4323-8, 2131-9, 6-3, 75690-2, 2275-4, 19493-9 ####[facility] LAB[facility]IA [id number] [place] [address] [place] Iron/TIBC [Molar ratio] 11.6 % Low 15.0-57.0 [facility] Comment on above: Order Comment: Speci men Type: BLOOD SPECIMENOrdering Facility: [facility] Address: [address] [place] [address] Performed By: #### 2 4323-8, 2131-9, 6-3, 60782-0, 6-4, 28814-7 ####[facility] LAB[facility]IA [id number] [address] [address] [place] Magnesium SerPl-mCncon 01-20 Magnesium [Mass/Vol] 2.2 mg/dL Normal 1.7-2.3 [facility] Comment on above: Order Comment: Speci men Type: BLOOD SPECIMEN [facility] Address: [address] [place], [place] [address] Performed By: #### L [id number] #### [facility] CLIA [id number] [address] [place], [place] [address] [place] Magnesium [Mass/Vol] 2.3 mg/dL Normal 1.7-2.3 [facility] Comment on above: Order Comment: Speci men Type: BLOOD SPECIMENOrdering Facility: [facility] Address: [address] [place], [place] [address] Performed By: #### 2 4323-8, 2132-9, 3016-3, 19391-5, 2276-4, 00909-0 ####[facility] LAB[facility]IA [id number] [place] [id number] [place] NURSING PROGon 01-20-2025 NURSING PROG HNO ID: [id number] Author: MARIANA POTTER RN Service: ? Author [...] agreeable to try ultrasound guided IV. 01/20: 53: pt c/o IV pain. When assessing IV, RN decided to take it out d/t pain. Pt offered and educated that he will need another IV, however, declining a new one right now. Normal [facility] POTASSIUMon 01-20-2025 Potassium [Moles/Vol] 3.3 mmol/L Low 3.7-5.1 [facility] Comment on above: Order Comment: Sunni reynoso Type: BLOOD SPECIMEN [facility] Address: [address] [place] [address] Performed By: #### L [id number] #### [facility] CLIA [id number] [address] [place] [address] [place] Potassium [Moles/Vol] 3.5 mmol/L Low 3.7-5.1 [facility] Comment on above: Order Comment: Sunni reynoso Type: BLOOD SPECIMEN [facility]: [facility] Address: [address] [place] [address] Performed By: #### L [id number] #### [facility] CLIA [id number] [address] [place] [address] [place] PT panel Coag (PPP)on 2024 INR Coag (PPP) [Relative time] 1.5 {INR} High 0.9-1.3 [facility] Comment on above: Order Comment: Sunni reynoso Type: BLOOD SPECIMENOrdering Facility: [facility] Address: [address] [place] [address] Result Comment: Gayla min K Antagonist (VKA) Therapeutic Range: INR 2 to 3 (Target INR of 2.5) Note: For patients treated with VKA drugs, such as warfarin, the [employer] 2012 Guideline recommends [...] Chest 2012, 141:7S-47S Evelyn RA, et al. [facility] 2017, 70: 252-289 Performed By: #### 3 4528-0, 59098-8 ####[facility] LAB[facility]IA [id number] [place] [address] [place] PT Coag (PPP) [Time] 15.7 s High 9.7-13.0 [facility] Comment on above: Order Comment: Speci men Type: BLOOD SPECIMENOrdering Facility: [facility] Address: [address] [place] [address] Performed By: #### 3 4528-0, 46300-0 ####[facility]IA [id number] [place] [address] [place] SEPSIS LACTATEon 01-20-2025 Lactate [Moles/Vol] 2.5 mmol/L High <=2.0 [facility] Comment on above: Order Comment: Sunni reynoso Type: BLOOD SPECIMEN [facility] Address: [address] [place] [address] Performed By: #### L [id number] #### [facility] CLIA [id number] [address] [place] [address] [place] TSH SerPl-aCncon 01-20-2025 TSH Qn 3.480 m[IU]/L Normal 0.270-4.200 [facility] Comment on above: Order Comment: Speci men Type: BLOOD SPECIMENOrdering Facility: [facility] Address: [address] [place] [address] Performed By: #### 2 4323-8, 2-9, 6-3, 25710-8, 6-4, 29493-7 ####[facility]IA [id number] [place] [id number] [place] Vit B12 SerPl-mCncon 025 Cobalamin (Vitamin B12) [Mass/Vol] 1829 pg/mL High 232-1245 [facility] Comment on above: Order Comment: Speci men Type: BLOOD SPECIMENOrdering Facility: [facility] Address: [address] [place] [address] Performed By: #### 2 4323-8, 2-9, 6-3, 80162-7, 2275-4, 36933-3 ####[facility]IA [id number] [place] [id number] [place] aPTT PPPon 01-20-2025 aPTT Coag (PPP) [Time] 29.7 s Normal 23.0-32.4 [facility] Comment on above: Order Comment: Speci men Type: BLOOD SPECIMENOrdering Facility: [facility] Address: [address] [place] [address] Performed By: #### 3 4528-0, 75570-4 ####[facility] LAB[facility]IA [id number] [place] [id number] [place] CBC W Auto Differential pane l (Bld)on 01-19-2025 Basophils (Bld) [#/Vol] 0.03 10*3/uL Normal <0.11 [facility] Comment on above: Order Comment: Speci men Type: BLOOD SPECIMEN [facility]: [facility] Address: [address] [place] [address] Performed By: #### L [id number] #### [facility] CLIA [id number] [address] [place] [address] [place] Basophils/100 WBC (Bld) 0.4 % Normal [facility] Comment on above: Order Comment: Speci men Type: BLOOD SPECIMEN [facility]: [facility] Address: [address] [place] [address] Performed By: #### L [id number] #### [facility] CLIA [id number] [address] [place] [address] [place] Differential cell count method Nom (Bld) Auto Normal [facility] Comment on above: Order Comment: Speci men Type: BLOOD SPECIMEN [facility]: [facility] Address: [address] [place] [address] Performed By: #### L [id number] #### [facility] CLIA [id number] [address] [place] [address] [place] Eosinophils (Bld) [#/Vol] 10*3/uL Normal <0.46 [facility] Comment on above: Order Comment: Speci men Type: BLOOD SPECIMEN [facility]ing [facility]: [facility] Address: [address] [place] [address] Performed By: #### L [id number] #### [facility] CLIA [id number] [address] [place] [address] [place] Eosinophils/100 WBC (Bld) 0.1 % Normal [facility] Comment on above: Order Comment: Speci men Type: BLOOD SPECIMEN Ordering Facility: [facility] Address: [address] [place] [address] Performed By: #### L [id number] #### [facility] CLIA [id number] [address] [place] [address] [place] Erythrocyte distribution width (RBC) [Ratio] 16.1 % High 11.5-15.0 [facility] Comment on above: Order Comment: Speci men Type: BLOOD SPECIMEN Ordering Facility: [facility] Address: [address] [place] [address] Performed By: #### L [id number] #### [facility] CLIA [id number] [address] [place] [address] [place] Hematocrit (Bld) [Volume fraction] 40.3 % Normal 39.0-51.0 [facility] Comment on above: Order Comment: Speci men Type: BLOOD SPECIMEN [facility]: [facility] Address: [address] [place] [address] Performed By: #### L [id number] #### [facility] CLIA [id number] [address] [place] [address] [place] Hemoglobin (Bld) [Mass/Vol] 12.9 g/dL Low 13.0-17.0 [facility] Comment on above: Order Comment: Speci men Type: BLOOD SPECIMEN [facility]: [facility] Address: [address] [place] [address] Performed By: #### L [id number] #### [facility] CLIA [id number] [address] [place] [address] [place] Immature granulocytes (Bld) [#/Vol] 10*3/uL Normal <0.10 [facility] Comment on above: Order Comment: Speci men Type: BLOOD SPECIMEN Ordering Facility: [facility] Address: [address] [place] [address] Performed By: #### L [id number] #### [facility] CLIA [id number] [address] [place] [address] [place] Immature granulocytes/100 WBC (Bld) 0.1 % Normal [facility] Comment on above: Order Comment: Speci men Type: BLOOD SPECIMEN Ordering Facility: [facility] Address: [address] [place] [address] Performed By: #### L [id number] #### [facility] CLIA [id number] [address] [place] [address] [place] Lymphocytes (Bld) [#/Vol] 2.06 10*3/uL Normal 1.00-4.00 [facility] Comment on above: Order Comment: Speci men Type: BLOOD SPECIMEN Ordering [facility]: [facility] Address: [address] [place] [address] Performed By: #### L [id number] #### [facility] CLIA [id number] [address] [place] [address] [place] Lymphocytes/100 WBC (Bld) 26.0 % Normal [facility] Comment on above: Order Comment: Speci men Type: BLOOD SPECIMEN Ordering Facility: [facility] Address: [address] [place] [address] Performed By: #### L [id number] #### [facility] CLIA [id number] [address] [place] [address] [place] MCH (RBC) [Entitic mass] 33.0 pg Normal 26.0-34.0 [facility] Comment on above: Order Comment: Speci men Type: BLOOD SPECIMEN Ordering Facility: [facility] Address: [address] [place] [address] Performed By: #### L [id number] #### [facility] CLIA [id number] [address] [place] [address] [place] MCHC (RBC) [Mass/Vol] 32.0 g/dL Normal 30.5-36.0 [facility] Comment on above: Order Comment: Speci men Type: BLOOD SPECIMEN Ordering Facility: [facility] Address: [address] [place] [address] Performed By: #### L [id number] #### [facility] CLIA [id number] [address] [place] [address] [place] MCV (RBC) [Entitic vol] 103.1 fL High 80.0-100.0 [facility] Comment on above: Order Comment: Speci men Type: BLOOD SPECIMEN Ordering Facility: [facility] Address: [address] [place] [address] Performed By: #### L [id number] #### [facility] CLIA [id number] [address] [place] [address] [place] Monocytes (Bld) [#/Vol] 0.68 10*3/uL Normal <0.87 [facility] Comment on above: Order Comment: Speci men Type: BLOOD SPECIMEN Ordering Facility: [facility] Address: [address] [place] [address] Performed By: #### L [id number] #### [facility] CLIA [id number] [address] [place] [address] [place] Monocytes/100 WBC (Bld) 8.6 % Normal [facility] Comment on above: Order Comment: Speci men Type: BLOOD SPECIMEN Ordering Facility: [facility] Address: [address] [place] [address] Performed By: #### L [id number] #### [facility] CLIA [id number] [address] [place] [address] [place] Neutrophils (Bld) [#/Vol] 5.13 10*3/uL Normal 1.45-7.50 [facility] Comment on above: Order Comment: Speci men Type: BLOOD SPECIMEN Ordering Facility: [facility] Address: [address] [place] [address] Performed By: #### L [id number] #### [facility] CLIA [id number] [address] [place] [address] [place] Neutrophils/100 WBC (Bld) 64.8 % Normal [facility] Comment on above: Order Comment: Speci men Type: BLOOD SPECIMEN Ordering Facility: [facility] Address: [address] [place] [address] Performed By: #### L [id number] #### [facility] CLIA [id number] [address] [place] [address] [place] Nucleated RBC (Bld) [#/Vol] 0.03 10*3/uL High <0.01 [facility] Comment on above: Order Comment: Speci men Type: BLOOD SPECIMEN Ordering Facility: [facility] Address: [address] [place] [address] Performed By: #### L [id number] #### [facility] CLIA [id number] [address] [place] [address] [place] Nucleated RBC/100 WBC (Bld) [Ratio] 0.4 /100 WBC Normal [facility] Comment on above: Order Comment: Speci men Type: BLOOD SPECIMEN Ordering Facility: [facility] Address: [address] [place] [address] Performed By: #### L [id number] #### [facility] CLIA [id number] [address] [place] [address] [place] Platelet mean volume (Bld) [Entitic vol] 10.5 fL Normal 9.0-12.7 [facility] Comment on above: Order Comment: Speci men Type: BLOOD SPECIMEN Ordering Facility: [facility] Address: [address] [place] [address] Performed By: #### L [id number] #### [facility] CLIA [id number] [address] [place] [address] [place] Platelets (Bld) [#/Vol] 272 10*3/uL Normal 150-400 [facility] Comment on above: Order Comment: Speci men Type: BLOOD SPECIMEN Ordering Facility: [facility] Address: [address] [place] [address] Performed By: #### L [id number] #### [facility] CLIA [id number] [address] [place] [address] [place] RBC (Bld) [#/Vol] 3.91 10*6/uL Low 4.20-6.00 [facility] Comment on above: Order Comment: Speci men Type: BLOOD SPECIMEN Ordering Facility: [facility] Address: [address] [place] [address] Performed By: #### L [id number] #### [facility] CLIA [id number] [address] [place] [address] [place] WBC (Bld) [#/Vol] 7.92 10*3/uL Normal 3.70-11.00 [facility] Comment on above: Order Comment: Speci men Type: BLOOD SPECIMEN Ordering Facility: [facility] Address: [address] [place] [address] Performed By: #### L [id number] #### [facility] CLIA [id number] [address] [place] [address] [place] Comprehensive metabolic 2000 panelon 01-19-2025 Albumin [Mass/Vol] 3.7 g/dL Low 3.9-4.[address] [facility] Comment on above: Order Comment: Speci men Type: BLOOD SPECIMENOrdering Facility: [facility] Address: [address] [place] [address] Performed By: #### 3 3762-6, 99879-7, 49255-2, [id number] ####[facility]IA [id number] [place] [address] [place] ALP [Catalytic activity/Vol] 515 U/L High 38-113 [facility] Comment on above: Order Comment: Speci men Type: BLOOD SPECIMENOrdering Facility: [facility] Address: [address] [place] [address] Performed By: #### 3 3762-6, 51943-0, 71117-9, [id number] ####[facility] [id number] [place] [address] [place] ALT [Catalytic activity/Vol] 23 U/L Normal 10-54 [facility] Comment on above: Order Comment: Speci men Type: BLOOD SPECIMENOrdering Facility: [facility] Address: [address] [place] [address] Performed By: #### 3 3762-6, 73051-1, 60619-4, [id number] ####[facility] [id number] [address] [address] [place] Anion gap [Moles/Vol] 18 mmol/L High 8-15 [facility] Comment on above: Order Comment: Speci men Type: BLOOD SPECIMENOrdering Facility: [facility] Address: [address] [place], [place] [address] Performed By: #### 3 3762-6, 06974-9, 73246-9, [id number] ####[facility] [id number] [place] [id number] [place] AST [Catalytic activity/Vol] 23 U/L Normal 14-40 [facility] Comment on above: Order Comment: Speci men Type: BLOOD SPECIMENOrdering Facility: [facility] Address: [address] [place] [address] Performed By: #### 3 3762-6, 44464-3, 19366-1, [id number] ####[facility] [id number] [place] [address] [place] Bilirubin [Mass/Vol] 5.6 mg/dL High 0.2-1.3 [facility] Comment on above: Order Comment: Speci men Type: BLOOD SPECIMENOrdering Facility: [facility] Address: [address] [place] [address] Performed By: #### 3 3762-6, 12943-4, 56249-9, [id number] ####[facility] [id number] [place] [address] [place] Calcium [Mass/Vol] 9.2 mg/dL Normal 8.5-10.[address] [facility] Comment on above: Order Comment: Speci men Type: BLOOD SPECIMENOrdering Facility: [facility] Address: [address] [place], [place] [address] Performed By: #### 3 3762-6, 05757-0, 14993-3, [id number] ####[facility] [id number] [address] [address] [place] Chloride [Moles/Vol] 103 mmol/L Normal 98-107 [facility] Comment on above: Order Comment: Speci men Type: BLOOD SPECIMENOrdering Facility: [facility] Address: [address] [place] [address] Performed By: #### 3 3762-6, 98426-8, 05927-2, [id number] ####[facility] [id number] [place] [address] [place] CO2 [Moles/Vol] 20 mmol/L Low 22-30 [facility] Comment on above: Order Comment: Speci men Type: BLOOD SPECIMENOrdering Facility: [facility] Address: [address] [place] [address] Performed By: #### 3 3762-6, 26698-5, 87481-0, [id number] ####[facility] [id number] [place] [address] [place] Creatinine [Mass/Vol] 2.27 mg/dL High 0.73-1.22 [facility] Comment on above: Order Comment: Speci men Type: BLOOD SPECIMENOrdering Facility: [facility] Address: [address] [place] [address] Performed By: #### 3 3762-6, 96892-0, 98192-9, [id number] ####[facility] [id number] [place] [address] [place] eGFRcr SerPlBld CKD-EPI 2020 35 mL/min/1.73m??? Low >=60 [facility] Comment on above: Order Comment: Speci men Type: BLOOD SPECIMENOrdering Facility: [facility] Address: [address] [place], [place] [address] Result Comment: Ella mated Glomerular Filtration Rate [...] actual GFR. Performed By: #### 3 3762-6, , 99231-3, [id number] ####[facility] [id number] [facility] [address] [address] [place] Glucose [Mass/Vol] 119 mg/dL High 74-[address] [facility] Comment on above: Order Comment: Sunni reynoso Type: BLOOD SPECIMENOrdering Facility: [facility] Address: [address] [place] [address] Result Comment: The [place] [employer] Association (ADA) provides guidance for cutoff [...] Standards of Medical Care in Diabetes 2016, [place] [employer]. Diabetes Care. 2016.39(Suppl 1). Performed By: #### 3 3762-6, , 41307-9, [id number] ####[facility] [id number] [facility] [address] [address] [place] Potassium [Moles/Vol] 3.5 mmol/L Low 3.7-5.1 [facility] Comment on above: Order Comment: Sunni reynoso Type: BLOOD SPECIMENOrdering Facility: [facility] Address: [address] [place] [address] Performed By: #### 3 3762-6, 70659-1, 67242-4, [id number] ####[facility] [id number] [facility] [place] [address] [place] Protein [Mass/Vol] 7.4 g/dL Normal 6.3-8.[address] [facility] Comment on above: Order Comment: Speci men Type: BLOOD SPECIMENOrdering Facility: [facility] Address: [address] [place] [address] Performed By: #### 3 3762-6, 03920-8, 40758-4, [id number] ####[facility] [id number] [place] [address] [place] Sodium [Moles/Vol] 141 mmol/L Normal 136-[address] [facility] Comment on above: Order Comment: Speci men Type: BLOOD SPECIMENOrdering Facility: [facility] Address: [address] [place] [address] Performed By: #### 3 3762-6, 45940-4, 28670-0, [id number] ####[facility]IA [id number] [place] [address] [place] Urea nitrogen [Mass/Vol] 39 mg/dL High 9-24 [facility] Comment on above: Order Comment: Speci men Type: BLOOD SPECIMENOrdering Facility: [facility] Address: [address] [place] [address] Performed By: #### 3 3762-6, 10382-0, 99530-3, [id number] ####[facility] [id number] [place] [address] [place] ECG COMPLETEon 01-19-2025 ECG COMPLETE Ventricular Rate : 107 BPM Atrial Rate : 107 BPM P-R Interval : 138 ms QRS Duration : 142 ms Q-T Interval : 392 ms QTC Calculation(Bazett) : 523 ms Calculated P [place] : 49 degrees Calculated R [place] : 173 degrees Calculated T [place] : -4 degrees SINUS TACHYCARDIA WITH PREMATURE ATRIAL COMPLEXES NONSPECIFIC INTRAVENTRICULAR BLOCK POSSIBLE LATERAL MYOCARDIAL INFARCTION , AGE UNDETERMINED ABNORMAL ECG Confirmed by MD RAMAN, DALI ([id number]), sports editor MANUELA JEFFERSON ([id number]) on 02/04/2025 10:50:23 PM NAME : CARLO MEDINA PID : [id number] : 1980 Gender : Male Race : ORD : [id number] Procedure Date : Jan 19 2025 15:33:31 Edit Date : Feb 04 2025 22:50:26 Diagnosis: SINUS TACHYCARDIA WITH PREMATURE ATRIAL COMPLEXES NONSPECIFIC INTRAVENTRICULAR BLOCK POSSIBLE LATERAL MYOCARDIAL INFARCTION , AGE UNDETERMINED ABNORMAL ECG Confirmed by MD RAMAN, DALI ([id number]), sports editor MANUELA JEFFERSON ([id number]) on 02/04/2025 10:50:23 PM Test Reason : sa Location : 2 : EDNS J073- Overread By : MD CAMARGO LUCY Edited By : MANUELA JEFFERSON Referred By : , Acquired by : Ermelinda swanson [facility] ED NOTEon 01-19-2025 ED NOTE HNO ID: [id number] Author: FELIPE MONTAGUE, CT Service: Emergency Medicine Author Type: Clinical Flight Purser Type: ED Notes Filed: 01/19/2025 19:50 Note Text: Safety and comfort care check round. Normal [facility] ED PROV NOTEon 01-19-2025 ED PROV NOTE HNO ID: [id number] Author: LA YUN MD Service: Emergency Medicine [...] All othe (more content not included)... Normal [facility] ED Triage Noteon 01-19-2025 ED Triage Note HNO ID: [id number] Author: DALI CAMARGO MD Service: Emergency Medicine [...] W INTERPRETATION SIGNATURE: Dali Camargo MD Normal [facility] HIGH SENSITIVITY TROPONIN T (INITIAL)on 01-19-2025 Troponin T.cardiac High sensitivity method [Mass/Vol] 52 ng/L High <12 [facility] Comment on above: Order Comment: Speci [place] Type: BLOOD SPECIMENOrdering Facility: [facility] Address: [address] [place] [address] Performed By: #### 3 3762-6, 44857-7, 98402-5, [id number] ####[facility] [id number] [address] [place] HIGH SENSITIVITY TROPONIN T (SECOND)on 01-19-2025 Troponin T.cardiac High sensitivity method [Mass/Vol] 50 ng/L High <12 [facility] Comment on above: Order Comment: Sunni reynoso Type: BLOOD SPECIMEN Ordering Facility: [facility] Address: [address] [place] [address] Performed By: #### L [id number] #### [facility] CLIA [id number] [address] [place] [address] [place] HIGH SENSITIVITY TROPONIN T (THIRD) 3 HRS AFTER INITIALon 01-19-2025 Troponin T.cardiac High sensitivity method [Mass/Vol] 52 ng/L High <12 [facility] Comment on above: Order Comment: Speci men Type: BLOOD SPECIMEN Ordering Facility: [facility] Address: [address] [place] [address] Performed By: #### L [id number] #### [facility] CLIA [id number] [address] [place] [address] [id number] [place] [address] HISTORY PHYSICALon HISTORY PHYSICAL HNO ID: [id number] Author: MAGED CORREA MD Service: Cardiovascular Medicine Author Type: Physician Type: H&P Filed: 01/20/2025 13:26 Note Text: [facility]ARDI[facility]ASCULAR MEDICINE HISTORY AND PHYSICAL NAME:Carlo Medina PRIMARY SERVICE: [facility] - Clinical 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 Normal [facility] Magnesium [Mass/Vol] 2.3 mg/dL Normal 1.7-2.3 [facility] Comment on above: Order Comment: Speci men Type: BLOOD SPECIMENOrdering Facility: [facility] Address: [address] [place] [address] Performed By: #### 3 3762-6, 38059-6, 92296-0, [id number] ####[facility] [id number] [place] [id number] [facility] [place] NT-proBNP [facility]19 Natriuretic peptide.B prohormone N-Terminal [Mass/Vol] 60080 pg/mL High <125 [facility] Comment on above: Order Comment: Sunni reynoso Type: BLOOD SPECIMENOrdering Facility: [facility] Address: [address] [place] [address] Performed By: #### 3 3762-6, 84309-6, 92633-9, [id number] ####[facility] [id number] [address] [place] NURSING PROGon 01-19-2025 NURSING PROG HNO ID: [id number] Author: MARIANA POTTER RN Service: ? Author Type: Registered Nurse Type: Nursing Progress Note Filed: 01/19/2025 22:50 Note Text: 2114: pt arrived to J73 from ED. Sepsis alert popped up on EHR. RN paged primary to notify. Awaiting orders. Normal [facility] PT panel Coag (PPP)on 2024 INR Coag (PPP) [Relative time] 1.5 {INR} High 0.9-1.3 [facility] Comment on above: Order Comment: Sunni reynoso Type: BLOOD SPECIMEN Ordering Facility: [facility] Address: [address] [place] [address] Result Comment: Gayla min K Antagonist (VKA) Therapeutic Range: INR 2 to 3 (Target INR of 2.5) Note: For patients treated with VKA drugs, such as warfarin, the [place] [employer] 2012 Guideline recommends [...] Chest 2012, 141:7S-47S Evelyn RA, et al. [facility] 2017, 70: 252-289 Performed By: #### L [id number] #### [facility] CLIA [id number] [address] [place] [address] [place] PT Coag (PPP) [Time] 15.4 s High 9.7-13.0 [facility] Comment on above: Order Comment: Speci men Type: BLOOD SPECIMEN Ordering Facility: [facility] Address: [address] [place] [address] Performed By: #### L [id number] #### [facility] CLIA [id number] [address] [place] [address] [place] US DVT LOWER BILon 5 DVT LOWER EVANS * * *Final Report* * * DATE OF EXAM: Jan 19 2025 5:37PM [facility] - DVT LOWER EVANS / PROCEDURE [...] of the distal left common femoral vein. Plant Wrapper: PSCB Transcribe Date/Time: Jan 19 2025 6:16P Dictated by : SIMÓN BENJAMIN MD This examination was interpreted and the report reviewed and electronically signed by: VAL BROTHERS MD on Jan 19 2025 6:19PM EST [id number] Normal [facility] XR CHEST 1V FRONTAL PORTon [...] acute radiographic abnormality. Stable enlarged cardiac silhouette. Plant Wrapper: JOSE Transcribe Date/Time: Jan 19 2025 4:11P Dictated by : SIMÓN BENJAMIN MD This examination was interpreted and the report reviewed and electronically signed by: REBECCA GUPTA MD on Jan 19 2025 5:11PM EST [id number] Normal [facility] aPTT PPPon 01-19-2025 aPTT Coag (PPP) [Time] 29.2 s Normal 23.0-32.4 Cl [facility] Comment on above: Order Comment: Speci men Type: BLOOD SPECIMENOrdering Facility: [facility] Address: [address] [place] [address] Performed By: #### 3 4528-0, 51003-1 ####[facility] [id number] [address] STATES OF [facility] Anion gap in Serum or Plasma Ordered By: Anshul Lemus on 01-10-2025 Anion gap [Moles/Vol] 11 mmol/L 5-15 [facility] BUN/creatinine ratioOrdered By: Anshul Lemus on 01-10-2025 Urea nitrogen/Creatinine [Mass ratio] 14.6 mg/mg 10-20 [facility] Bilirubin, totalOrdered By: Anshul Lemus on 01-10-2025 Bilirubin [Mass/Vol] 2.47 mg/dL High 0.00-1.30 [facility] Carbon dioxide, total [Moles /volume] in Central venous bloodOrdered By: Anshul Lemus on 01-10-2025 CO2 [Moles/Vol] 26.1 mmol/L 21.0-32.0 [facility] Chloride assayOrdered By: Henry Lemus on 01-10-2025 Chloride [Moles/Vol] 102 mmol/L 98-108 [facility] Comprehensive Metabolic Prof ilon 01-10-2025 Albumin [Mass/Vol] 2.9 g/dL Low 3.5-5.0 [facility] Comment on above: Performed By: #### L 500.4050 #### [facility] [address] [place], [address] Albumin/Globulin [Mass ratio] 1.0 {ratio} Normal 0.9-2.4 [facility] Comment on above: Performed By: #### L 500.4050 #### [facility] [address] [place], [address] ALK PHOS 454 U/L High 40-129 [facility] Comment on above: Performed By: #### L 500.4050 #### [facility] [address] [place], [address] ALT [Catalytic activity/Vol] 18 U/L Normal <=46 [facility] Comment on above: Performed By: #### L 500.4050 #### [facility] [address] [place], [address] AST [Catalytic activity/Vol] 30 U/L Normal <=37 [facility] Comment on above: Performed By: #### L 500.4050 #### [facility] [address] [place], [address] Bilirubin [Mass/Vol] 2.47 mg/dL High 0.00-1.30 [facility] Comment on above: Performed By: #### L 500.4050 #### [facility] [address] [place], [address] BUN/CRE 14.6 RATIO Normal 10-20 [facility] Comment on above: Performed By: #### L 500.4050 #### [facility] [address] [place], [address] Calcium [Mass/Vol] 7.9 mg/dL Normal 7.6-11.0 [facility] Comment on above: Performed By: #### L 500.4050 #### [facility] [address] [place], [address] Chloride [Moles/Vol] 102 mmol/L Normal 98-108 [facility] Comment on above: Performed By: #### L 500.4050 #### [facility] [address] [place], [address] CO2 [Moles/Vol] 26.1 mmol/L Normal 21.0-32.0 [facility] Comment on above: Performed By: #### L 500.4050 #### [facility] [address] [place], [address] Creatinine [Mass/Vol] 1.55 mg/dL High 0.70-1.20 [facility] Comment on above: Performed By: #### L 500.4050 #### [facility] [address] [place], [address] ECRCL 61.74 ml/min Normal 50-250 [facility] Comment on above: Performed By: #### L 500.4050 #### [facility] [address] [place], [address] GAP 11 Normal 5-15 [facility] Comment on above: Performed By: #### L 500.4050 #### [facility] [address] [place], [address] GFR/1.73 sq M.predicted among non-blacks MDRD (S/P/Bld) [Vol rate/Area] 56 mL/min/{1.73_m2} Low >60 [facility] Comment on above: Result Comment: mL/m in/1.73m2 CKD-EPI Creatinine Equation (2020) Performed By: #### L 500.4050 #### [facility] [address] [place], [address] Globulin (S) [Mass/Vol] 2.9 g/dL Normal 2.2-4.2 [facility] Comment on above: Performed By: #### L 500.4050 #### [facility] [address] [place], [address] Glucose [Mass/Vol] 92 mg/dL Normal 70-99 [facility] Comment on above: Performed By: #### L 500.4050 #### [facility] [address] [place], [address] Potassium [Moles/Vol] 3.9 mmol/L Normal 3.3-5.1 [facility] Comment on above: Performed By: #### L 500.4050 #### [facility] [address] [place], [address] Sodium [Moles/Vol] 139 mmol/L Normal 133-145 [facility] Comment on above: Performed By: #### L 500.4050 #### [facility] [address] [place], [address] T PROT 5.8 g/dL Low 5.9-8.4 [facility] Comment on above: Performed By: #### L 500.4050 #### [facility] [address] [place], [address] Urea nitrogen [Mass/Vol] 23 mg/dL High 4-19 [facility] Comment on above: Performed By: #### L 500.4050 #### [facility] [address] [place], [address] Glomerular filtration rate ( GFR) estimation/1.73 sq m using serum, plasma, or whole bOrdered By: Anshul Lemus on 01-10-2025 GFR/1.73 sq M.predicted among non-blacks MDRD (S/P/Bld) [Vol rate/Area] 56 mL/min/{1.73_m2} Low >60 [facility] Comment on above: mL/min/1.73m2 CKD-EP I Creatinine Equation (2020) Laboratory - Chemistry and C hemistry - challengeOrdered By: Anshul Lemus on 01-10-2025 AST [Catalytic activity/Vol] 30 U/L <38 [facility] [facility] Potassium measurement (mass/ volume)Ordered By: Anshul Lemus on 01-10-2025 Potassium (Unsp spec) [Mass/Vol] 3.9 mmol/L 3.3-5.1 [facility] Serum creatinine measurement (mass/volume)Ordered By: Anshul Lemus on 01-10-2025 Creatinine [Mass/Vol] 1.55 mg/dL High 0.70-1.20 [facility] Serum globulin measurementOr dered By: Anshul Lemus on 01-10-2025 Globulin (S) [Mass/Vol] 2.9 g/dL 2.2-4.2 [facility] Serum glucose measurement (m ass/volume)Ordered By: Anshul Lemus on 01-10-2025 Glucose [Mass/Vol] 92 mg/dL 70-99 [facility] Serum or plasma alanine de paz otransferase (ALT) measurementOrdered By: Anshul Lemus on 01-10-2025 ALT [Catalytic activity/Vol] 18 U/L <47 [facility] Serum or plasma albumin fidel urement (mass/volume)Ordered By: Anshul Lemus on 01-10-2025 Albumin [Mass/Vol] 2.9 g/dL Low 3.5-5.0 [facility] Serum or plasma albumin/glob ulin mass ratioOrdered By: Anshul Lemus on 01-10-2025 Albumin/Globulin [Mass ratio] 1.0 {ratio} 0.9-2.4 [facility] Serum or plasma alkaline nick sphatase measurementOrdered By: Anshul Lemus on 01-10-2025 ALP [Catalytic activity/Vol] 454 U/L High 40-129 [facility] Serum or plasma calcium fidel urement (mass/volume)Ordered By: Anshul Lemus on 01-10-2025 Calcium [Mass/Vol] 7.9 mg/dL 7.6-11.0 [facility] Serum or plasma urea nitroge n measurement (mass/volume)Ordered By: Anshul Lemus on 01-10-2025 Urea nitrogen [Mass/Vol] 23 mg/dL High 4-19 [facility] Sodium levelOrdered By: Anshul Lemus on 01-10-2025 Sodium [Moles/Vol] 139 mmol/L 133-145 [facility] Total proteinOrdered By: Damari Lemus on 01-10-2025 Protein [Mass/Vol] 5.8 g/dL Low 5.9-8.4 [facility] Basic Metabolic Profile (BMP )on 01-09-2025 BUN/CRE 14.5 RATIO Normal 10-20 [facility] Comment on above: Performed By: #### L 500.2500 #### [facility] [address] [place], [address] Calcium [Mass/Vol] 7.9 mg/dL Normal 7.6-11.0 [facility] Comment on above: Performed By: #### L 500.2500 #### [facility] [address] [place], [address] Chloride [Moles/Vol] 102 mmol/L Normal 98-108 [facility] Comment on above: Performed By: #### L 500.2500 #### [facility] [address] [place], [address] CO2 [Moles/Vol] 27.2 mmol/L Normal 21.0-32.0 [facility] Comment on above: Performed By: #### L 500.2500 #### [facility] [address] [place], [address] Creatinine [Mass/Vol] 1.70 mg/dL High 0.70-1.20 [facility] Comment on above: Performed By: #### L 500.2500 #### [facility] [address] [place], [address] ECRCL 59.21 ml/min Normal 50-250 [facility] Comment on above: Performed By: #### L 500.2500 #### [facility] [address] [place], [address] GAP 11 Normal 5-15 [facility] Comment on above: Performed By: #### L 500.2500 #### [facility] [address] [place], [address] GFR/1.73 sq M.predicted among non-blacks MDRD (S/P/Bld) [Vol rate/Area] 50 mL/min/{1.73_m2} Low >60 [facility] Comment on above: Result Comment: mL/m in/1.73m2 CKD-EPI Creatinine Equation (2020) Performed By: #### L 500.2500 #### [facility] [address] [place], [address] Glucose [Mass/Vol] 106 mg/dL High 70-99 [facility] Comment on above: Performed By: #### L 500.2500 #### [facility] [address] [place], [address] Potassium [Moles/Vol] 3.8 mmol/L Normal 3.3-5.1 [facility] Comment on above: Performed By: #### L 500.2500 #### [facility] [address] [place], [address] Sodium [Moles/Vol] 140 mmol/L Normal 133-145 [facility] Comment on above: Performed By: #### L 500.2500 #### [facility] [address] [place], [address] Urea nitrogen [Mass/Vol] 25 mg/dL High 4-19 [facility] Comment on above: Performed By: #### L 500.2500 #### [facility] [address] [place], [address] Basic Metabolic Profile (BMP )on 01-08-2025 BUN/CRE 12.6 RATIO Normal 10-20 [facility] Comment on above: Performed By: #### L 500.4050, L100.0100 #### [facility] [address] [place], [address] Calcium [Mass/Vol] 8.3 mg/dL Normal 7.6-11.0 [facility] Comment on above: Performed By: #### L 500.4050, L100.0100 #### [facility] [address] [place], [address] Chloride [Moles/Vol] 101 mmol/L Normal 98-108 [facility] Comment on above: Performed By: #### L 500.4050, L100.0100 #### [facility] [address] [place], [address] CO2 [Moles/Vol] 28.2 mmol/L Normal 21.0-32.0 [facility] Comment on above: Performed By: #### L 500.4050, L100.0100 #### [facility] [address] [place], [address] Creatinine [Mass/Vol] 1.83 mg/dL High 0.70-1.20 [facility] Comment on above: Performed By: #### L 500.4050, L100.0100 #### [facility] [address] [place], [address] ECRCL 54.58 ml/min Normal 50-250 [facility] Comment on above: Performed By: #### L 500.4050, L100.0100 #### [facility] [address] [place], [address] GAP 12 Normal 5-15 [facility] Comment on above: Performed By: #### L 500.4050, L100.0100 #### [facility] [address] [place], [address] GFR/1.73 sq M.predicted among non-blacks MDRD (S/P/Bld) [Vol rate/Area] 46 mL/min/{1.73_m2} Low >60 [facility] Comment on above: Result Comment: mL/m in/1.73m2 CKD-EPI Creatinine Equation (2020) Performed By: #### L 500.4050, L100.0100 #### [facility] [address] [place], [address] Glucose [Mass/Vol] 100 mg/dL High 70-99 [facility] Comment on above: Performed By: #### L 500.4050, L100.0100 #### [facility] [address] [place], [address] Potassium [Moles/Vol] 3.8 mmol/L Normal 3.3-5.1 [facility] Comment on above: Performed By: #### L 500.4050, L100.0100 #### [facility] [address] [place], [address] Sodium [Moles/Vol] 141 mmol/L Normal 133-145 [facility] Comment on above: Performed By: #### L 500.4050, L100.0100 #### [facility] [address] [place], [address] Urea nitrogen [Mass/Vol] 23 mg/dL High 4-19 [facility] Comment on above: Performed By: #### L 500.4050, L100.0100 #### [facility] [address] [place], [address] Comprehensive Metabolic Prof [facility] 01-07-2025 Albumin [Mass/Vol] 3.2 g/dL Low 3.5-5.0 [facility] Comment on above: Order Comment: LAZARA Manriquez WHEN STORING TUBES AND WAS FOUND ON TRACKING LOG.PULLED TUBE IMMEDIATELY AND RAN. Performed By: #### L 499.0042 #### [facility] [address] [place], [address] Albumin/Globulin [Mass ratio] 1.1 {ratio} Normal 0.9-2.4 [facility] Comment on above: Order Comment: CAUGH T WHEN STORING TUBES AND WAS FOUND ON TRACKING LOG.PULLED TUBE IMMEDIATELY AND RAN. Performed By: #### L 499.0042 #### [facility] [address] [place], [address] ALK PHOS 585 U/L High 40-129 [facility] Comment on above: Order Comment: CAUGH T WHEN STORING TUBES AND WAS FOUND ON TRACKING LOG.PULLED TUBE IMMEDIATELY AND RAN. Performed By: #### L 499.0042 #### [facility] [address] [place], [address] ALT [Catalytic activity/Vol] 20 U/L Normal <=46 [facility] Comment on above: Order Comment: CAUGH T WHEN STORING TUBES AND WAS FOUND ON TRACKING LOG.PULLED TUBE IMMEDIATELY AND RAN. Performed By: #### L 499.0042 #### [facility] [address] [place], [address] AST [Catalytic activity/Vol] 29 U/L Normal <=37 [facility] Comment on above: Order Comment: CAUGH T WHEN STORING TUBES AND WAS FOUND ON TRACKING LOG.PULLED TUBE IMMEDIATELY AND RAN. Performed By: #### L 499.0042 #### [facility] [address] [place], [address] Bilirubin [Mass/Vol] 2.65 mg/dL High 0.00-1.30 [facility] Comment on above: Order Comment: CAUGH T WHEN STORING TUBES AND WAS FOUND ON TRACKING LOG.PULLED TUBE IMMEDIATELY AND RAN. Performed By: #### L 499.0042 #### [facility] [address] [place], [address] BUN/CRE 13.1 RATIO Normal 10-20 [facility] Comment on above: Order Comment: CAUGH T WHEN STORING TUBES AND WAS FOUND ON TRACKING LOG.PULLED TUBE IMMEDIATELY AND RAN. Performed By: #### L 499.0042 #### [facility] [address] [place], [address] Calcium [Mass/Vol] 8.0 mg/dL Normal 7.6-11.0 [facility] Comment on above: Order Comment: CAUGH T WHEN STORING TUBES AND WAS FOUND ON TRACKING LOG.PULLED TUBE IMMEDIATELY AND RAN. Performed By: #### L 499.0042 #### [facility] [address] [place], [address] Chloride [Moles/Vol] 102 mmol/L Normal 98-108 [facility] Comment on above: Order Comment: CAUGH T WHEN STORING TUBES AND WAS FOUND ON TRACKING LOG.PULLED TUBE IMMEDIATELY AND RAN. Performed By: #### L 499.0042 #### [facility] [address] [place], [address] CO2 [Moles/Vol] 28.4 mmol/L Normal 21.0-32.0 [facility] Comment on above: Order Comment: CAUGH T WHEN STORING TUBES AND WAS FOUND ON TRACKING LOG.PULLED TUBE IMMEDIATELY AND RAN. Performed By: #### L 499.0042 #### [facility] [address] [place], [place], [address] Creatinine [Mass/Vol] 1.75 mg/dL High 0.70-1.20 [facility] Comment on above: Order Comment: CAUGH T WHEN STORING TUBES AND WAS FOUND ON TRACKING LOG.PULLED TUBE IMMEDIATELY AND RAN. Performed By: #### L 499.0042 #### [facility] [address] [place], [address] ECRCL 56.03 ml/min Normal 50-250 [facility] Comment on above: Order Comment: CAUGH T WHEN STORING TUBES AND WAS FOUND ON TRACKING LOG.PULLED TUBE IMMEDIATELY AND RAN. Performed By: #### L 499.0042 #### [facility] [address] [place], [address] GAP 10 Normal 5-15 [facility] Comment on above: Order Comment: CAUGH T WHEN STORING TUBES AND WAS FOUND ON TRACKING LOG.PULLED TUBE IMMEDIATELY AND RAN. Performed By: #### L 499.0042 #### [facility] [address] [place], [address] GFR/1.73 sq M.predicted among non-blacks MDRD (S/P/Bld) [Vol rate/Area] 48 mL/min/{1.73_m2} Low >60 [facility] Comment on above: Order Comment: CAUGH T WHEN STORING TUBES AND WAS FOUND ON TRACKING LOG.PULLED TUBE IMMEDIATELY AND RAN. Result Comment: mL/m in/1.73m2 CKD-EPI Creatinine Equation (2020) Performed By: #### L 499.0042 #### [facility] [address] [place], [address] Globulin (S) [Mass/Vol] 2.8 g/dL Normal 2.2-4.2 [facility] Comment on above: Order Comment: CAUGH T WHEN STORING TUBES AND WAS FOUND ON TRACKING LOG.PULLED TUBE IMMEDIATELY AND RAN. Performed By: #### L 499.0042 #### [facility] [address] [place], [address] Glucose [Mass/Vol] 94 mg/dL Normal 70-99 [facility] Comment on above: Order Comment: CAUGH T WHEN STORING TUBES AND WAS FOUND ON TRACKING LOG.PULLED TUBE IMMEDIATELY AND RAN. Performed By: #### L 499.0042 #### [facility] [address] [place], [address] Potassium [Moles/Vol] 3.1 mmol/L Low 3.3-5.1 [facility] Comment on above: Order Comment: CAUGH T WHEN STORING TUBES AND WAS FOUND ON TRACKING LOG.PULLED TUBE IMMEDIATELY AND RAN. Performed By: #### L 499.0042 #### [facility] [address] [place], [address] Sodium [Moles/Vol] 141 mmol/L Normal 133-145 [facility] Comment on above: Order Comment: CAUGH T WHEN STORING TUBES AND WAS FOUND ON TRACKING LOG.PULLED TUBE IMMEDIATELY AND RAN. Performed By: #### L 499.0042 #### [facility] [address] [place], [place], [address] T PROT 6.0 g/dL Normal 5.9-8.4 [facility] Comment on above: Order Comment: CAUGH T WHEN STORING TUBES AND WAS FOUND ON TRACKING LOG.PULLED TUBE IMMEDIATELY AND RAN. Performed By: #### L 499.0042 #### [facility] [address] [place], [place], [address] Urea nitrogen [Mass/Vol] 23 mg/dL High 4-19 [facility] Comment on above: Order Comment: CAUGH T WHEN STORING TUBES AND WAS FOUND ON TRACKING LOG.PULLED TUBE IMMEDIATELY AND RAN. Performed By: #### L 499.0042 #### [facility] [address] [place], [place], [address] Consultation - Cardiologyon 01-07-2025 Consultation - Cardiology [facility] Medical Records Department [address] [place] [address] Consultation - Cardiology 01/07/25 1336 MR#: [id number] Acct: [id number] Name: CARLO MEDINA Rep #: [id number] : 1980 44 From: Lavon Campo MD PCP: Care Physician,No Primary Status:ADM IN Location: [place] [address] Assessment Plan Assessment/Plan (1) HFrEF (heart failure [...] and SGLT2 Recommend transferring the patient to [facility] for BiV evaluation. Noncompliance is a [...] time. Has had numerous hospitalizations over at [facility] and recently was over at [facility] in September. 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 [facility] Medical History Kidney disease Non-smoker Irregular heart [...] Non-Af 48 (more content not included)... Normal [facility] Absolute lymphocyte countOrd ered By: Anshul Lemus on 01-06-2025 Lymphocytes Auto (Unsp spec) [#/Vol] 1.71 10*3/uL 0.83-4.51 [facility] Absolute neutrophil countOrd ered By: Anshul Lemus on 01-06-2025 Neutrophils (Bld) [#/Vol] 3.8 10*3/uL 2.0-7.7 [facility] Automated lymphocyte count a s percentage of total leukocytesOrdered By: Anshul Jerezrich on 01-06-2025 Lymphocytes/100 WBC Auto (Unsp spec) 28.0 % 19-41 [facility] Basophil percentageOrdered B y: Anshul Jerezrich on 01-06-2025 Basophils/100 WBC (Bld) 0.3 % 0-1 [facility] CBC W/Diff, Automatedon 12-28 0-2024 Absolute Lymph 1.71 X10 3/uL Normal 0.83-4.51 [facility] Comment on above: Performed By: #### L 500.4050, L100.0100 #### [facility] [address] [place], [address] Absolute Neut 3.8 X10 3/uL Normal 2.0-7.7 [facility] Comment on above: Performed By: #### L 500.4050, L100.0100 #### [facility] [address] [place], [address] Basophils/100 WBC (Bld) 0.3 % Normal 0-1 [facility] Comment on above: Performed By: #### L 500.4050, L100.0100 #### [facility] [address] [place], [address] Eosinophils/100 WBC (Bld) 1.0 % Normal 0-5 [facility] Comment on above: Performed By: #### L 500.4050, L100.0100 #### [facility] [address] [place], [address] Erythrocyte distribution width (RBC) [Ratio] 15.0 % High 11.6-14.6 [facility] Comment on above: Performed By: #### L 500.4050, L100.0100 #### [facility] [address] [place], [address] Hematocrit (Bld) [Volume fraction] 37.0 % Low 40-54 [facility] Comment on above: Performed By: #### L 500.4050, L100.0100 #### [facility] [address] [place], [address] Hemoglobin (Bld) [Mass/Vol] 11.9 g/dL Low 13.0-16.5 [facility] Comment on above: Performed By: #### L 500.4050, L100.0100 #### [facility] [address] [place], [address] IG% 0.200 Normal 0.0-0.9 [facility] Comment on above: Result Comment: IG% - Immature Granulocytes (promyelocytes, myelocytes and metamyelocytes) > 1% indicates that a LEFT SHIFT is Present. Performed By: #### L 500.4050, L100.0100 #### [facility] [address] [place], [address] Lymphocytes/100 WBC (Bld) 28.0 % Normal 19-41 [facility] Comment on above: Performed By: #### L 500.4050, L100.0100 #### [facility] [address] [place], [address] MCH (RBC) [Entitic mass] 33.6 pg High 27.0-32.0 [facility] Comment on above: Performed By: #### L 500.4050, L100.0100 #### [facility] [address] [place], [address] MCHC (RBC) [Mass/Vol] 32.2 g/dL Normal 32-36 [facility] Comment on above: Performed By: #### L 500.4050, L100.0100 #### [facility] [address] [place], [address] MCV (RBC) [Entitic vol] 104.5 fL High 80-94 [facility] Comment on above: Performed By: #### L 500.4050, L100.0100 #### [facility] [address] [place], [address] Monocytes/100 WBC (Bld) 8.9 % Normal 0-10 [facility] Comment on above: Performed By: #### L 500.4050, L100.0100 #### [facility] [address] [place], [address] Neutrophils/100 WBC (Bld) 61.6 % Normal 47-70 [facility] Comment on above: Performed By: #### L 500.4050, L100.0100 #### [facility] [address] [place], [address] Nucleated RBC (Bld) [#/Vol] 0 10*3/uL Normal 0-5 [facility] Comment on above: Performed By: #### L 500.4050, L100.0100 #### [facility] [address] [place], [address] Platelet mean volume (Bld) [Entitic vol] 10.0 fL Normal 6.2-12.0 [facility] Comment on above: Performed By: #### L 500.4050, L100.0100 #### [facility] [address] [place], [address] Platelets (Bld) [#/Vol] 219 10*3/uL Normal 150-450 [facility] Comment on above: Performed By: #### L 500.4050, L100.0100 #### [facility] [address] [place], [address] RBC (Bld) [#/Vol] 3.54 10*6/uL Low 4.6-6.2 [facility] Comment on above: Performed By: #### L 500.4050, L100.0100 #### [facility] [address] [place], [address] RDW SD 57.7 fl High 35.1-43.9 [facility] Comment on above: Performed By: #### L 500.4050, L100.0100 #### [facility] [address] [place], [address] WBC (Bld) [#/Vol] 6.1 10*3/uL Normal 4.4-11.0 [facility] Comment on above: Performed By: #### L 500.4050, L100.0100 #### [facility] [address] [place], [address] Comprehensive Metabolic Prof [facility] 01-06-2025 Albumin [Mass/Vol] 3.1 g/dL Low 3.5-5.0 [facility] Comment on above: Performed By: #### L 500.4050, L100.0100 #### [facility] [address] [place], [address] Albumin/Globulin [Mass ratio] 1.1 {ratio} Normal 0.9-2.4 [facility] Comment on above: Performed By: #### L 500.4050, L100.0100 #### [facility] [address] [place], [address] ALK PHOS 638 U/L High 40-129 [facility] Comment on above: Performed By: #### L 500.4050, L100.0100 #### [facility] [address] [place], [address] ALT [Catalytic activity/Vol] 19 U/L Normal <=46 [facility] Comment on above: Performed By: #### L 500.4050, L100.0100 #### [facility] [address] [place], [address] AST [Catalytic activity/Vol] 27 U/L Normal <=37 [facility] Comment on above: Performed By: #### L 500.4050, L100.0100 #### [facility] [address] [place], [address] Bilirubin [Mass/Vol] 2.99 mg/dL High 0.00-1.30 [facility] Comment on above: Performed By: #### L 500.4050, L100.0100 #### [facility] [address] [place], [address] BUN/CRE 14.3 RATIO Normal 10-20 [facility] Comment on above: Performed By: #### L 500.4050, L100.0100 #### [facility] [address] [place], [address] Calcium [Mass/Vol] 8.2 mg/dL Normal 7.6-11.0 [facility] Comment on above: Performed By: #### L 500.4050, L100.0100 #### [facility] [address] [place], [address] Chloride [Moles/Vol] 103 mmol/L Normal 98-108 [facility] Comment on above: Performed By: #### L 500.4050, L100.0100 #### [facility] [address] [place], [address] CO2 [Moles/Vol] 26.8 mmol/L Normal 21.0-32.0 [facility] Comment on above: Performed By: #### L 500.4050, L100.0100 #### [facility] [address] [place], [address] Creatinine [Mass/Vol] 1.91 mg/dL High 0.70-1.20 [facility] Comment on above: Performed By: #### L 500.4050, L100.0100 #### [facility] [address] [place], [address] ECRCL 52.15 ml/min Normal 50-250 [facility] Comment on above: Performed By: #### L 500.4050, L100.0100 #### [facility] [address] [place], [address] GAP 13 Normal 5-15 [facility] Comment on above: Performed By: #### L 500.4050, L100.0100 #### [facility] [address] [place], [address] GFR/1.73 sq M.predicted among non-blacks MDRD (S/P/Bld) [Vol rate/Area] 43 mL/min/{1.73_m2} Low >60 [facility] Comment on above: Result Comment: mL/m in/1.73m2 CKD-EPI Creatinine Equation (2020) Performed By: #### L 500.4050, L100.0100 #### [facility] [address] [place], [address] Globulin (S) [Mass/Vol] 2.9 g/dL Normal 2.2-4.2 [facility] Comment on above: Performed By: #### L 500.4050, L100.0100 #### [facility] [address] [place], [address] Glucose [Mass/Vol] 97 mg/dL Normal 70-99 [facility] Comment on above: Performed By: #### L 500.4050, L100.0100 #### [facility] [address] [place], [address] Potassium [Moles/Vol] 3.1 mmol/L Low 3.3-5.1 [facility] Comment on above: Performed By: #### L 500.4050, L100.0100 #### [facility] [address] [place], [address] Sodium [Moles/Vol] 143 mmol/L Normal 133-145 [facility] Comment on above: Performed By: #### L 500.4050, L100.0100 #### [facility] [address] [place], [address] T PROT 6.0 g/dL Normal 5.9-8.4 [facility] Comment on above: Performed By: #### L 500.4050, L100.0100 #### [facility] [address] [place], [address] Urea nitrogen [Mass/Vol] 27 mg/dL High 4-19 [facility] Comment on above: Performed By: #### L 500.4050, L100.0100 #### [facility] [address] [place], [address] Electrocardiogram reportOrde red By: Clark Almaraz on 01-06-2025 EKG study [facility] [address] [place] [address] 12 Lead EKG 01/04/25 0734 MR#: [id number] Acct: [id number] Name: CARLO MEDINA Rep #:[id number] : 1980 44 From: Clark Almaraz MD Attending Dr: Dr. Anshul Lemus, Status: ADM IN Ordering Dr: Deborah Penaloza DO Date: 0 01/04/25 Location: U Sex: M AA Admitted: 01/04/25 Test Reason [...] Abnormal ECG Reconfirmed by CLARK ALMARAZ MD ([id number]), sports editor GRACE KIDD ([id number]) on 01/06/2025 6:44:03 AM Referred By: Confirmed By: CLARK ALMARAZ MD 01/06/25 0644 Date _ Clark Almaraz MD CC: Dr. Deborah Penaloza, DO; Dr. Anshul Lemus, DO; No Primary Care Physician ~ Signed [facility] Work Phone: Eosinophil percentageOrdered By: Anshul Lemus on 01-06-2025 Eosinophils/100 WBC (Bld) 1.0 % 0-5 [facility] Erythrocyte distribution wid th ratioOrdered By: Anshul Lemus on 01-06-2025 Erythrocyte distribution width (RBC) [Ratio] 15.0 % High 11.6-14.6 [facility] Erythrocyte distribution wid th standard deviationOrdered By: Anshul Lemus on 01-06-2025 Erythrocyte distribution width (RBC) [Ratio] 57.7 fl High 35.1-43.9 [facility] Hematocrit Auto (Bld) [Volum e fraction]Ordered By: Anshul Lemus on 01-06-2025 Hematocrit (Bld) [Volume fraction] 37.0 % Low 40-54 [facility] Hemoglobin measurementOrdere d By: Anshul Lemus on 01-06-2025 Hemoglobin (Bld) [Mass/Vol] 11.9 g/dL Low 13.0-16.5 [facility] Immature granulocytes/100 WB C Auto (Bld)Ordered By: Anshul Lemus on 01-06-2025 Immature granulocytes/100 WBC (Bld) 0.200 % 0.0-0.9 [facility] Comment on above: IG% - Immature Granu locytes (promyelocytes, myelocytes and metamyelocytes) > 1% indicates that a LEFT SHIFT is Present. MCV (mean corpuscular volume ) determinationOrdered By: Anshul Lemus on 01-06-2025 MCV (RBC) [Entitic vol] 104.5 fL High 80-94 [facility] Magnesiumon 01-06-2025 Magnesium [Mass/Vol] 1.8 mg/dL Normal 1.5-2.2 [facility] Comment on above: Performed By: #### L 499.0042 #### [facility] [address] [place], [address] Magnesium measurement (mass/ volume)Ordered By: Anshul Lemus on 01-06-2025 Magnesium (Unsp spec) [Mass/Vol] 1.8 mg/dL 1.5-2.2 [facility] Mean corpuscular hemoglobin (MCH) determinationOrdered By: Anshul Lemus on 01-06-2025 MCH (RBC) [Entitic mass] 33.6 pg High 27.0-32.0 [facility] Mean corpuscular hemoglobin concentration (MCHC) determinationOrdered By: Anshul Lemus on 01-06-2025 MCHC (RBC) [Mass/Vol] 32.2 g/dL 32-36 [facility] Mean platelet volume determi nationOrdered By: Anshul Lemus on 01-06-2025 Platelet mean volume (Bld) [Entitic vol] 10.0 fL 6.2-12.0 [facility] Monocyte percentageOrdered B y: Anshul Lemus on 01-06-2025 Monocytes/100 WBC (Bld) 8.9 % 0-10 [facility] Neutrophil percentageOrdered By: Anshul Lemus on 01-06-2025 Neutrophils/100 WBC (Bld) 61.6 % 47-70 [facility] Nucleated red blood cell per centageOrdered By: Anshul Lemus on 01-06-2025 Nucleated RBC/100 WBC (Bld) [Ratio] 0 % 0-5 [facility] Platelet countOrdered By: Henry Lemus on 01-06-2025 Platelets (Bld) [#/Vol] 219 10*3/uL 150-450 [facility] RBC Auto (Bld) [#/Vol]Ordere d By: Anshul Lemus on 01-06-2025 RBC (Bld) [#/Vol] 3.54 10*6/uL Low 4.6-6.2 [facility] White blood cell (WBC) count Ordered By: Anshul Lemus on 01-06-2025 WBC (Bld) [#/Vol] 6.1 10*3/uL 4.4-11.0 [facility] CBC W/Diff, Automatedon 07-0 Absolute Lymph 1.62 X10 3/uL Normal 0.83-4.51 [facility] Comment on above: Order Comment: PT RE FUSED X2 NURSE NOTFIED Performed By: #### L 499.0042 #### [facility] [address] [place], [address] Absolute Neut 4.2 X10 3/uL Normal 2.0-7.7 [facility] Comment on above: Order Comment: PT RE FUSED X2 NURSE NOTFIED Performed By: #### L 499.0042 #### [facility] [address] [place], [address] Basophils/100 WBC (Bld) 0.5 % Normal 0-1 [facility] Comment on above: Order Comment: PT RE FUSED X2 NURSE NOTFIED Performed By: #### L 499.0042 #### [facility] [address] [place], [address] Eosinophils/100 WBC (Bld) 0.6 % Normal 0-5 [facility] Comment on above: Order Comment: PT RE FUSED X2 NURSE NOTFIED Performed By: #### L 499.0042 #### [facility] [address] [place], [address] Erythrocyte distribution width (RBC) [Ratio] 15.0 % High 11.6-14.6 [facility] Comment on above: Order Comment: PT RE FUSED X2 NURSE NOTFIED Performed By: #### L 499.0042 #### [facility] [address] [place], [address] Hematocrit (Bld) [Volume fraction] 39.7 % Low 40-54 [facility] Comment on above: Order Comment: PT RE FUSED X2 NURSE NOTFIED Performed By: #### L 499.0042 #### [facility] [address] [place], [address] Hemoglobin (Bld) [Mass/Vol] 12.9 g/dL Low 13.0-16.5 [facility] Comment on above: Order Comment: PT RE FUSED X2 NURSE NOTFIED Performed By: #### L 499.0042 #### [facility] [address] [place], [address] IG% 0.300 Normal 0.0-0.9 [facility] Comment on above: Order Comment: PT RE FUSED X2 NURSE NOTFIED Result Comment: IG% - Immature Granulocytes (promyelocytes, myelocytes and metamyelocytes) > 1% indicates that a LEFT SHIFT is Present. Performed By: #### L 499.0042 #### [facility] [address] [place], [address] Lymphocytes/100 WBC (Bld) 25.5 % Normal 19-41 [facility] Comment on above: Order Comment: PT RE FUSED X2 NURSE NOTFIED Performed By: #### L 499.0042 #### [facility] [address] [place], [address] MCH (RBC) [Entitic mass] 33.3 pg High 27.0-32.0 [facility] Comment on above: Order Comment: PT RE FUSED X2 NURSE NOTFIED Performed By: #### L 499.0042 #### [facility] [address] [place], [address] MCHC (RBC) [Mass/Vol] 32.5 g/dL Normal 32-36 [facility] Comment on above: Order Comment: PT RE FUSED X2 NURSE NOTFIED Performed By: #### L 499.0042 #### [facility] [address] [place], [address] MCV (RBC) [Entitic vol] 102.6 fL High 80-94 [facility] Comment on above: Order Comment: PT RE FUSED X2 NURSE NOTFIED Performed By: #### L 499.0042 #### [facility] [address] [place], [address] Monocytes/100 WBC (Bld) 7.4 % Normal 0-10 [facility] Comment on above: Order Comment: PT RE FUSED X2 NURSE NOTFIED Performed By: #### L 499.0042 #### [facility] [address] [place], [address] Neutrophils/100 WBC (Bld) 65.7 % Normal 47-70 [facility] Comment on above: Order Comment: PT RE FUSED X2 NURSE NOTFIED Performed By: #### L 499.0042 #### [facility] [address] [place], [address] Nucleated RBC (Bld) [#/Vol] 0 10*3/uL Normal 0-5 [facility] Comment on above: Order Comment: PT RE FUSED X2 NURSE NOTFIED Performed By: #### L 499.0042 #### [facility] [address] [place], [address] Platelet mean volume (Bld) [Entitic vol] 10.0 fL Normal 6.2-12.0 [facility] Comment on above: Order Comment: PT RE FUSED X2 NURSE NOTFIED Performed By: #### L 499.0042 #### [facility] [address] [place], [address] Platelets (Bld) [#/Vol] 229 10*3/uL Normal 150-450 [facility] Comment on above: Order Comment: PT RE FUSED X2 NURSE NOTFIED Performed By: #### L 499.0042 #### [facility] [address] [place], [address] RBC (Bld) [#/Vol] 3.87 10*6/uL Low 4.6-6.2 [facility] Comment on above: Order Comment: PT RE FUSED X2 NURSE NOTFIED Performed By: #### L 499.0042 #### [facility] [address] [place], [address] RDW SD 56.2 fl High 35.1-43.9 [facility] Comment on above: Order Comment: PT RE FUSED X2 NURSE NOTFIED Performed By: #### L 499.0042 #### [facility] [address] [place], [address] WBC (Bld) [#/Vol] 6.4 10*3/uL Normal 4.4-11.0 [facility] Comment on above: Order Comment: PT RE FUSED X2 NURSE NOTFIED Performed By: #### L 499.0042 #### [facility] [address] [place], [address] Calculated very low density lipoprotein (VLDL) cholesterol measurementOrdered By: Anshul Lemus on 01-05-2025 Calculated very low density lipoprotein (VLDL) cholesterol measurement 18 mg/dL 5-40 [facility] Comprehensive Metabolic Prof ilon 01-05-2025 Albumin [Mass/Vol] 3.4 g/dL Low 3.5-5.0 [facility] Comment on above: Performed By: #### L 499.0042 #### [facility] [address] [place], [address] Albumin/Globulin [Mass ratio] 1.0 {ratio} Normal 0.9-2.4 [facility] Comment on above: Performed By: #### L 499.0042 #### [facility] [address] [place], [address] ALK PHOS 751 U/L High 40-129 [facility] Comment on above: Performed By: #### L 499.0042 #### [facility] [address] [place], [address] ALT [Catalytic activity/Vol] 22 U/L Normal <=46 [facility] Comment on above: Performed By: #### L 499.0042 #### [facility] [address] [place], [address] AST [Catalytic activity/Vol] 29 U/L Normal <=37 [facility] Comment on above: Performed By: #### L 499.0042 #### [facility] [address] [place], [address] Bilirubin [Mass/Vol] 4.16 mg/dL High 0.00-1.30 [facility] Comment on above: Performed By: #### L 499.0042 #### [facility] [address] [place], [address] BUN/CRE 14.6 RATIO Normal 10-20 [facility] Comment on above: Performed By: #### L 499.0042 #### [facility] [address] [place], [address] Calcium [Mass/Vol] 8.9 mg/dL Normal 7.6-11.0 [facility] Comment on above: Performed By: #### L 499.0042 #### [facility] [address] [place], [address] Chloride [Moles/Vol] 103 mmol/L Normal 98-108 [facility] Comment on above: Performed By: #### L 499.0042 #### [facility] [address] [place], [address] CO2 [Moles/Vol] 25.7 mmol/L Normal 21.0-32.0 [facility] Comment on above: Performed By: #### L 499.0042 #### [facility] [address] [place], [address] Creatinine [Mass/Vol] 2.02 mg/dL High 0.70-1.20 [facility] Comment on above: Performed By: #### L 499.0042 #### [facility] [address] [place], [address] ECRCL 49.31 ml/min Low 50-250 [facility] Comment on above: Performed By: #### L 499.0042 #### [facility] [address] [place], [address] GAP 15 Normal 5-15 [facility] Comment on above: Performed By: #### L 499.0042 #### [facility] [address] [place], [address] GFR/1.73 sq M.predicted among non-blacks MDRD (S/P/Bld) [Vol rate/Area] 40 mL/min/{1.73_m2} Low >60 [facility] Comment on above: Result Comment: mL/m in/1.73m2 CKD-EPI Creatinine Equation (2020) Performed By: #### L 499.0042 #### [facility] [address] [place], [address] Globulin (S) [Mass/Vol] 3.4 g/dL Normal 2.2-4.2 [facility] Comment on above: Performed By: #### L 499.0042 #### [facility] [address] [place], [address] Glucose [Mass/Vol] 124 mg/dL High 70-99 [facility] Comment on above: Performed By: #### L 499.0042 #### [facility] [address] [place], [address] Potassium [Moles/Vol] 3.1 mmol/L Low 3.3-5.1 [facility] Comment on above: Performed By: #### L 499.0042 #### [facility] [address] [place], [address] Sodium [Moles/Vol] 144 mmol/L Normal 133-145 [facility] Comment on above: Performed By: #### L 499.0042 #### [facility] [address] [place], [place], [id number] T PROT 6.8 g/dL Normal 5.9-8.4 [facility] Comment on above: Performed By: #### L 499.0042 #### [facility] [address] [place], [place], [id number] Urea nitrogen [Mass/Vol] 29 mg/dL High 4-19 [facility] Comment on above: Performed By: #### L 499.0042 #### [facility] [address] [place], [place], [id number] International normalized rat io (INR) calculationOrdered By: Anshul Lemus on 01-05-2025 INR Coag (Bld) [Relative time] 1.6 {INR} [facility] LDL calc ser/plasOrdered By: Anshul Lemus on 01-05-2025 Cholesterol in LDL [Mass/Vol] 112 mg/dL [facility] Comment on above: Nyvxhhteer=529-319 m g/dL & Higher Dnpi=707 mg/dL or greater Lipid Profileon 01-05-2025 CHOL:HDL 5.48 Normal [facility] Comment on above: Performed By: #### L 499.0042 #### [facility] [address] [place], [place], [id number] (942) Cholesterol [Mass/Vol] 159 mg/dL Normal <=200 [facility] Comment on above: Result Comment: Chol esterol level, Desirable <200 mg/dL Borderline high cholesterol 200-239 mg/dL High cholesterol >=240 mg/dL Recommendations of the NCEP Adult Treatment Panel for the following risk-cutoff thresholds for the [place] population. Performed By: #### L 499.0042 #### [facility] [address] [place], [place], [id number] Cholesterol in HDL [Mass/Vol] 29 mg/dL Low [facility] Comment on above: Result Comment: [place]ati onal Cholesterol Education Program (NCEP) guidelines: <40 mg/dL: Low HDL-cholesterol (major risk factor for CHD) >= 60 mg/dL: High HDL-cholesterol (negative risk factor for CHD) HDL-cholesterol is affected by a number of factors, e.g. smoking, exercise, hormones, sex and age. Performed By: #### L 499.0042 #### [facility] [address] [place], [address] Cholesterol in LDL [Mass/Vol] 112 mg/dL Normal [facility] Comment on above: Result Comment: Bord kaduxb=515-890 mg/dL Higher Rhoo=168 mg/dL or greater Performed By: #### L 499.0042 #### [facility] [address] [place], [address] Cholesterol in VLDL [Mass/Vol] 18 mg/dL Normal 5-40 [facility] Comment on above: Performed By: #### L 499.0042 #### [facility] [address] [place], [address] Triglyceride [Mass/Vol] 88 mg/dL Normal [facility] Comment on above: Result Comment: The drugs N-Acetylcysteine and Metamizole may falsely depress this assay. Normal range: <150 mg/dL Borderline High: 150-199 mg/dL High: 200-499 mg/dL Very High: >500 mg/dL Performed By: #### L 499.0042 #### [facility] [address] [place], [address] Prothrombin Time w/INRon INR Coag (PPP) [Relative time] 1.6 {INR} Normal [facility] Comment on above: Performed By: #### L 499.0042 #### [facility] [address] [place], [address] PT Coag (PPP) [Time] 19.4 s High 11.7-14.9 [facility] Comment on above: Performed By: #### L 499.0042 #### [facility] [address] [place], [address] Prothrombin timeOrdered By: Anshul Lemus on 01-05-2025 PT Coag (PPP) [Time] 19.4 s High 11.7-14.9 [facility] Screening total cholesterol/ high density lipoprotein (HDL) cholesterol ratioOrdered By: Anshul Lemus on 01-05-2025 Cholesterol.total/Chol esterol in HDL [Mass ratio] 5.48 {ratio} [facility] Serum or plasma cholesterol in HDL measurement (mass/volume)Ordered By: Anshul Lemus on 01-05-2025 Cholesterol in HDL [Mass/Vol] 29 mg/dL Low >40 [facility] Comment on above: National Cholesterol Education Program (NCEP) guidelines:<40 mg/dL: Low HDL-cholesterol (major risk factor for CHD)>= 60 mg/dL: High HDL-cholesterol (negative risk factor for CHD)HDL-cholesterol is affected by a number of factors, e.g. smoking, exercise, hormones, sex and age. Serum or plasma cholesterol measurement (mass/volume)Ordered By: Anshul Lemus on 01-05-2025 Cholesterol [Mass/Vol] 159 mg/dL <201 [facility] Comment on above: Cholesterol level, D esirable <200 mg/dLBorderline high cholesterol 200-239 mg/dLHigh cholesterol >=240 mg/dLRecommendations of the NCEP Adult Treatment Panel for the following risk-cutoff thresholds for the [place] population. Triglycerides measurementOrd ered By: Anshul Lemus on 01-05-2025 Triglyceride [Mass/Vol] 88 mg/dL <199 [facility] Comment on above: The drugs N-Acetylcy steine and Metamizole may falsely depress this assay. Normal range: <150 mg/dLBorderline High: 150-199 mg/dLHigh: 200-499 mg/dLVery High: >500 mg/dL 12 Lead EKGon 01-04-2025 12 Lead EKG [facility] [address] [place] [address] 12 Lead EKG 01/04/25 0734 MR#: [id number] Acct: [id number] Name: CARLO MEDINA Rep #: [id number] : 1980 44 From: Clark Almaraz MD Attending Dr: Dr. Anshul Lemus DO Status: ADM IN Ordering Dr: Deborah Penaloza DO Date: 01/04/25 Location: [facility] Sex: M AA Admitted: 01/04/25 Test [...] ECG Reconfirmed by CLARK ALMARAZ MD ([id number]), sports editor GRACE KIDD ([id number]) on 01/06/2025 6:44:03 AM Referred By: Confirmed By: CLARK ALMARAZ MD 01/06/25 0644 Date Clark Almaraz MD CC: Dr. Deborah Penaloza DO; Dr. Anshul Lemus DO; No Primary Care Physician Signed Normal [facility] Abdomen Limitedon 01-04-2025 Abdomen Limited [facility] Imaging Services [address] [place] [address] Abdomen Limited MR#: [id number] Acct: [id number] Name: CARLO MEDINA Rep #: [id number] : 1980 M 44 From: Jamal Ford MD PCP: Care Physician,No Primary Status: REG ER Study: Abdomen Limited Date of Exam: 01/04/25 Exam# [id number] Ordering Dr: Deborah Penaloza DO EXAM: US Abdomen Limited, Right Upper Quadrant CLINICAL INDICATION: ELEVATED LIVER ENZYMES AND BILI TECHNIQUE: Real-time ultrasound of the right upper quadrant with image documentation. COMPARISON: No relevant prior studies available. FINDINGS: LIVER: Liver measures up to 15.9 cm. Fatty infiltration of the liver. No intrahepatic bile duct dilation. GALLBLADDER: Negative Melendez's sign was reported by the ethanol quality leader. No gallstones. COMMON BILE DUCT: Unremarkable as [...] Fatty infiltration of the liver. Reading Location: [facility] CC: Dr. Deborah Penaloza, DO; No Primary Care Physician Plant Wrapper: Signed Normal [facility] Absolute lymphocyte countOrd ered By: Deborah Penaloza on 01-04-2025 Lymphocytes Auto (Unsp spec) [#/Vol] 1.88 10*3/uL 0.83-4.51 [facility] Absolute neutrophil countOrd ered By: Deborah Penaloza on 01-04-2025 Neutrophils (Bld) [#/Vol] 3.7 10*3/uL 2.0-7.7 [facility] Anion gap in Serum or Plasma Ordered By: Deborah Penaloza on 01-04-2025 Anion gap [Moles/Vol] 14 mmol/L 5-15 [facility] Automated lymphocyte count a s percentage of total leukocytesOrdered By: Deborah Penaloza on 01-04-2025 Lymphocytes/100 WBC Auto (Unsp spec) 30.6 % 19-41 [facility] BUN/creatinine ratioOrdered By: Deborah Penaloza on 01-04-2025 Urea nitrogen/Creatinine [Mass ratio] 14.9 mg/mg 10- [facility] Basic Metabolic Profile (BMP )on 01-04-2025 BUN/CRE 14.9 RATIO Normal - [facility] Comment on above: Performed By: #### L 500.1600 #### [facility] [address] [place], [address] Calcium [Mass/Vol] 9.0 mg/dL Normal 7.6-11.0 [facility] Comment on above: Performed By: #### L 500.4050 #### [facility] [address] [place], [address] Chloride [Moles/Vol] 105 mmol/L Normal 98-108 [facility] Comment on above: Performed By: #### L 500.4050 #### [facility] [address] [place], [address] CO2 [Moles/Vol] 25.2 mmol/L Normal 21.0-32.0 [facility] Comment on above: Performed By: #### L 500.4050 #### [facility] [address] [place], [address] Creatinine [Mass/Vol] 2.03 mg/dL High 0.70-1.20 [facility] Comment on above: Performed By: #### L 500.4050 #### [facility] [address] [place], [address] ECRCL 51.39 ml/min Normal 50-250 [facility] Comment on above: Performed By: #### L 500.4050 #### [facility] [address] [place], [address] GAP 14 Normal 5-15 [facility] Comment on above: Performed By: #### L 500.4050 #### [facility] [address] [place], [address] GFR/1.73 sq M.predicted among non-blacks MDRD (S/P/Bld) [Vol rate/Area] 40 mL/min/{1.73_m2} Low >60 [facility] Comment on above: Result Comment: mL/m in/1.73m2 CKD-EPI Creatinine Equation (2020) Performed By: #### L 500.4050 #### [facility] [address] [place], [address] Glucose [Mass/Vol] 97 mg/dL Normal 70-99 [facility] Comment on above: Performed By: #### L 500.4050 #### [facility] [address] [place], [address] Potassium [Moles/Vol] 3.7 mmol/L Normal 3.3-5.1 [facility] Comment on above: Performed By: #### L 500.4050 #### [facility] [address] [place], [address] Sodium [Moles/Vol] 144 mmol/L Normal 133-145 [facility] Comment on above: Performed By: #### L 500.4050 #### [facility] [address] [place], [address] Urea nitrogen [Mass/Vol] 30 mg/dL High 4-19 [facility] Comment on above: Performed By: #### L 500.4050 #### [facility] [address] [place], [address] Basophil percentageOrdered B y: Deborah Penaloza on 01-04-2025 Basophils/100 WBC (Bld) 0.3 % 0-1 [facility] Bilirubin directOrdered By: Deborah Penaloza on 01-04-2025 Bilirubin.direct [Mass/Vol] 2.68 mg/dL High 0.00-0.30 [facility] Bilirubin, totalOrdered By: Deborah Penaloza on 01-04-2025 Bilirubin [Mass/Vol] 4.32 mg/dL High 0.00-1.30 [facility] CBC W/Diff, Automatedon Absolute Lymph 1.88 X10 3/uL Normal 0.83-4.51 [facility] Comment on above: Performed By: #### L 500.4050 #### [facility] [address] [place], [address] Absolute Neut 3.7 X10 3/uL Normal 2.0-7.7 [facility] Comment on above: Performed By: #### L 500.4050 #### [facility] [address] [place], [address] Basophils/100 WBC (Bld) 0.3 % Normal 0-1 [facility] Comment on above: Performed By: #### L 500.4050 #### [facility] [address] [place], [address] Eosinophils/100 WBC (Bld) 0.3 % Normal 0-5 [facility] Comment on above: Performed By: #### L 500.4050 #### [facility] [address] [place], [address] Erythrocyte distribution width (RBC) [Ratio] 15.0 % High 11.6-14.6 [facility] Comment on above: Performed By: #### L 500.4050 #### [facility] [address] [place], [address] Hematocrit (Bld) [Volume fraction] 40.6 % Normal 40-54 [facility] Comment on above: Performed By: #### L 500.4050 #### [facility] [address] [place], [address] Hemoglobin (Bld) [Mass/Vol] 12.9 g/dL Low 13.0-16.5 [facility] Comment on above: Performed By: #### L 500.4050 #### [facility] [address] [place], [address] IG% 0.200 Normal 0.0-0.9 [facility] Comment on above: Result Comment: IG% - Immature Granulocytes (promyelocytes, myelocytes and metamyelocytes) > 1% indicates that a LEFT SHIFT is Present. Performed By: #### L 500.4050 #### [facility] [address] [place], [address] Lymphocytes/100 WBC (Bld) 30.6 % Normal 19-41 [facility] Comment on above: Performed By: #### L 500.4050 #### [facility] [address] [place], [address] MCH (RBC) [Entitic mass] 33.1 pg High 27.0-32.0 [facility] Comment on above: Performed By: #### L 500.4050 #### [facility] [address] [place], [address] MCHC (RBC) [Mass/Vol] 31.8 g/dL Low 32-36 [facility] Comment on above: Performed By: #### L 500.4050 #### [facility] [address] [place], [address] MCV (RBC) [Entitic vol] 104.1 fL High 80-94 [facility] Comment on above: Performed By: #### L 500.4050 #### [facility] [address] [place], [address] Monocytes/100 WBC (Bld) 9.1 % Normal 0-10 [facility] Comment on above: Performed By: #### L 500.4050 #### [facility] [address] [place], [address] Neutrophils/100 WBC (Bld) 59.5 % Normal 47-70 [facility] Comment on above: Performed By: #### L 500.4050 #### [facility] [address] [place], [address] Nucleated RBC (Bld) [#/Vol] 0.3 10*3/uL Normal 0-5 [facility] Comment on above: Performed By: #### L 500.4050 #### [facility] [address] [place], [address] Platelet mean volume (Bld) [Entitic vol] 10.4 fL Normal 6.2-12.0 [facility] Comment on above: Performed By: #### L 500.4050 #### [facility] [address] [place], [address] Platelets (Bld) [#/Vol] 219 10*3/uL Normal 150-450 [facility] Comment on above: Performed By: #### L 500.4050 #### [facility] [address] [place], [address] RBC (Bld) [#/Vol] 3.90 10*6/uL Low 4.6-6.2 [facility] Comment on above: Performed By: #### L 500.4050 #### [facility] [address] [place], [address] RDW SD 57.5 fl High 35.1-43.9 [facility] Comment on above: Performed By: #### L 500.4050 #### [facility] [address] [place], [address] WBC (Bld) [#/Vol] 6.2 10*3/uL Normal 4.4-11.0 [facility] Comment on above: Performed By: #### L 500.4050 #### [facility] [address] [place], [address] Carbon dioxide, total [Moles /volume] in Central venous bloodOrdered By: Deborah Penaloza on 01-04-2025 CO2 [Moles/Vol] 25.2 mmol/L 21.0-32.0 [facility] Chest PA and Lateralon 01-04 Chest PA and Lateral [facility] Imaging Services [address] [place] [address] Chest PA and Lateral MR#: [id number] Acct: [id number] Name: CARLO MEDINA Rep #: [id number] : 1980 M 44 From: Jamal Ford MD PCP: Care Physician,No Primary Status: [facility] ER Study: Chest PA and Lateral Date of Exam: 01/04/25 Exam# [id number] Ordering Dr: Deborah Penaloza DO EXAM: XR Chest, 2 Views CLINICAL INDICATION: SOB TECHNIQUE: Frontal and lateral views of the chest. COMPARISON: No relevant prior studies available. FINDINGS: LUNGS AND PLEURAL SPACES: Bibasilar atelectasis or pneumonia. No pneumothorax. HEART: Unremarkable. No cardiomegaly. MEDIASTINUM: Unremarkable. Normal mediastinal contour. BONES/JOINTS: Unremarkable. No acute fracture. RAD/Chest PA and Lateral IMPRESSION: Bibasilar atelectasis or pneumonia. Reading Location: [facility] CC: Dr. Deborah Penaloza DO; No Primary Care Physician Plant Wrapper: Signed Normal [facility] Chloride assayOrdered By: Jacob Penaloza on 01-04-2025 Chloride [Moles/Vol] 105 mmol/L 98-108 [facility] Echo Complete W/ Contraston 01-04-2025 Echo Complete W/ Contrast [facility] Cardiovascular Services [address] [place] [address] Echo Complete W/ Contrast 01/04/25 1507 MR#: [id number] Acct: [id number] Name: CARLO MEDINA Rep #: [id number] : 1980 44 From: Clark Almaraz MD [...] Physician Date Dictated: 01/04/251506 Date Transcribed: 01/04/251843 Plant Wrapper: Signed Normal [facility] Echocardiogram study reportO rdered By: Clark Almaraz on 01-04-2025 Study report [facility] Cardiovascular Services [address] [facility] [place] [address] Echo Complete W/ Contrast 01/04/251506 MR#: [id number] Acct: [id number] Name: CARLO MEDINA Rep #:[id number] : 1980 44 From: Clark Torrez Attending Dr: Dr. Anshul Lemus DO Status: ADM IN Ordering Dr: Anshul Lemus DO Date: Location: [facility] Sex: M AA Admitted: 01/04/25 Reason [...] Lemus Performed By: Amrita Vail RDCS 01/04/25 1844 Date _ Clark Almaraz MD CC: Dr. Anshul Lemus DO; No Primary Care Physician ~ Date Dictated: 01/04/25 1507 Date Transcribed: 01/04/251843 Plant Wrapper: Signed [facility] Work Phone: Emergency Department Summary on 01-04-2025 Emergency Department Summary [facility] Medical Records Department [address] [place] [address] Emergency Department Summary 01/04/25 MR#: [id number] Acct: [id number] Name: CARLO MEDINA Rep #: [id number] : 1980 44 From: Deborah Penaloza DO PCP: Care Physician,No Primary Status:ADM IN Location: [address] History of Present Illness Chief Complaint: [...] states he normally receives his care through [facility] because of his insurance but has had a hard time following up and getting to appointments because of transportation and the distance. States he has been compliant with his medications. Is in the process of trying to establish down here in [place]. Denies any chest pain. Denies any fever or chills. Denies any change in urination. Patient does not know what triggered his fluid overload. Note from inpatient encounter at [facility] on 10/26/2024 she is at patient [...] (Updated 01/04/25 @ 13:[address] Anshul Lemus, DO) Father Heart disease Brother Heart disease Social History (Updated 01/04/25 @ 13:[address] Anshul Lemus, ) Smoking Status: Never smoker alcohol intake: never [...] Nasal Cannula (more content not included)... Normal [facility] Eosinophil percentageOrdered By: Deborah Penaloza on 01-04-2025 Eosinophils/100 WBC (Bld) 0.3 % 0-5 [facility] Erythrocyte distribution wid th ratioOrdered By: Deborah Penaloza on 01-04-2025 Erythrocyte distribution width (RBC) [Ratio] 15.0 % High 11.6-14.6 [facility] Erythrocyte distribution wid th standard deviationOrdered By: Deborah Penaloza on 01-04-2025 Erythrocyte distribution width (RBC) [Ratio] 57.5 fl High 35.1-43.9 [facility] Glomerular filtration rate ( GFR) estimation/1.73 sq m using serum, plasma, or whole bOrdered By: Deborah Penaloza on 01-04-2025 GFR/1.73 sq M.predicted among non-blacks MDRD (S/P/Bld) [Vol rate/Area] 40 mL/min/{1.73_m2} Low >60 [facility] Comment on above: mL/min/1.73m2 CKD-EP I Creatinine Equation (2020) H AND P Exam - [facility] 01-04-2025 H&P Exam - Hospitalist [facility] Medical Records Department [address] [place] [address] H P Exam - Hospitalist 01/04/25 1351 MR#: [id number] Acct: [id number] Name: CARLO MEDINA Rep #: [id number] : 1980 44 From: Anshul Lemus DO PCP: Care Physician,No Primary Status:ADM IN Location: [place] [address] HPI - [facility] Date of Service: 01/04/25 Chief Complaint: Shortness [...] time. Has had numerous hospitalizations over at [facility] and recently was over at [facility] in September. It is documented throughout his charts at [facility] as well as [facility] that he has a history of [...] still wants time to think about it. [facility] Medical History (Updated 01/04/25 @ 14:00 by [...] Mean 8 (more content not included)... Normal [facility] Hematocrit Auto (Bld) [Volum e fraction]Ordered By: Deborah Penaloza on 01-04-2025 Hematocrit (Bld) [Volume fraction] 40.6 % 40-54 [facility] Hemoglobin measurementOrdere d By: Deborah Penaloza on 01-04-2025 Hemoglobin (Bld) [Mass/Vol] 12.9 g/dL Low 13.0-16.5 [facility] Immature granulocytes/100 WB C Auto (Bld)Ordered By: Deborah Penaloza on 01-04-2025 Immature granulocytes/100 WBC (Bld) 0.200 % 0.0-0.9 [facility] Comment on above: IG% - Immature Granu locytes (promyelocytes, myelocytes and metamyelocytes) > 1% indicates that a LEFT SHIFT is Present. L499.0042on 01-04-2025 Trop T High Sen 42 ng/L High <=22 [facility] Comment on above: Performed By: #### L 499.0042 #### [facility] [place], [address] L499.0043on 01-04-2025 Trop T High Sen 45 ng/L High <=22 [facility] Comment on above: Performed By: #### L 500.4054, L100.0100 #### [facility] [address] [place], [address] L501.4021on 01-04-2025 Trop T High Sen 45 ng/L High <=22 [facility] Comment on above: Performed By: #### L 501.4021 #### [facility] [address] [place], [address] L503.7505on 01-04-2025 Natriuretic peptide B (Bld) [Mass/Vol] 03690 pg/mL High <=450 [facility] Comment on above: Result Comment: Hear t Failure Unlikely: < 300 pg/mL Heart Failure Likely < 50 Years: > 450 pg/mL 50-75 Years: > 900 pg/mL >75 Years: > 1800 pg/mL Performed By: #### L 500.4050 #### [facility] [address] [place], [place], [address] Laboratory - Chemistry and C hemistry - challengeOrdered By: Deborah Penaloza on 01-04-2025 AST [Catalytic activity/Vol] 28 U/L <38 [facility] Lipaseon 01-04-2025 Lipase [Catalytic activity/Vol] 15 U/L Normal - [facility] Comment on above: Result Comment: Plea se note: LIPASE revised reference range effective 22. New Lipase methodology. Expected to produce lower values than the previous assay method. NEW Reference Range: 13 - 75 U/L Performed By: #### L 500.4050 #### [facility] [address] [place], [place], [address] Lipase measurementOrdered By : Deborah Penaloza on 01-04-2025 Lipase [Catalytic activity/Vol] 15 U/L 13-75 [facility] Comment on above: Please note:LIPASE r evised reference range effective 22. New Lipase methodology. Expected to produce lower values than the previous assay method. NEW Reference Range: 13 - 75 U/L Liver Profileon 07-08-2025 Albumin [Mass/Vol] 3.6 g/dL Normal 3.5-5.0 [facility] Comment on above: Performed By: #### L 500.4050 #### [facility] [address] [place], [address] ALK PHOS 743 U/L High 40-129 [facility] Comment on above: Performed By: #### L 500.4050 #### [facility] [address] [place], [address] ALT [Catalytic activity/Vol] 22 U/L Normal <=46 [facility] Comment on above: Performed By: #### L 500.4050 #### [facility] [address] [place], [address] AST [Catalytic activity/Vol] 28 U/L Normal <=37 [facility] Comment on above: Performed By: #### L 500.4050 #### [facility] [address] [place], [address] Bilirubin [Mass/Vol] 4.32 mg/dL High 0.00-1.30 [facility] Comment on above: Performed By: #### L 500.4050 #### [facility] [address] [place], [address] Bilirubin.direct [Mass/Vol] 2.68 mg/dL High 0.00-0.30 [facility] Comment on above: Performed By: #### L 500.4050 #### [facility] [address] [place], [address] Globulin (S) [Mass/Vol] 3.2 g/dL Normal 2.2-4.2 [facility] Comment on above: Performed By: #### L 500.4050 #### [facility] [address] [place], [address] T PROT 6.8 g/dL Normal 5.9-8.4 [facility] Comment on above: Performed By: #### L 500.4050 #### [facility] [place], [address] MCV (mean corpuscular volume ) determinationOrdered By: Deborah Penaloza on 01-04-2025 MCV (RBC) [Entitic vol] 104.1 fL High 80-94 [facility] Mean corpuscular hemoglobin (MCH) determinationOrdered By: Deborah Penaloza on 01-04-2025 MCH (RBC) [Entitic mass] 33.1 pg High 27.0-32.0 [facility] Mean corpuscular hemoglobin concentration (MCHC) determinationOrdered By: Deborah Penaloza on 01-04-2025 MCHC (RBC) [Mass/Vol] 31.8 g/dL Low 32-36 [facility] Mean platelet volume determi nationOrdered By: Deborah Penaloza on 01-04-2025 Platelet mean volume (Bld) [Entitic vol] 10.4 fL 6.2-12.0 [facility] Monocyte percentageOrdered B y: Deborah Penaloza on 01-04-2025 Monocytes/100 WBC (Bld) 9.1 % 0-10 [facility] Natriuretic peptide.B prohor justin N-Terminal [Mass/volume] in Serum or PlasmaOrdered By: Deborah Penaloza on 01-04-2025 Natriuretic peptide.B prohormone N-Terminal [Mass/Vol] 70373 pg/mL High <450 [facility] Comment on above: Heart Failure Unlike ly: < 300 pg/mLHeart Failure Likely< 50 Years: > 450 pg/mL50-75 Years: > 900 pg/mL>75 Years: > 1800 pg/mL Neutrophil percentageOrdered By: Deborah Penaloza on 01-04-2025 Neutrophils/100 WBC (Bld) 59.5 % 47-70 [facility] Nucleated red blood cell per centageOrdered By: Deborah Penaloza on 01-04-2025 Nucleated RBC/100 WBC (Bld) [Ratio] 0.3 % 0-5 [facility] Platelet countOrdered By: Jacob Penaloza on 01-04-2025 Platelets (Bld) [#/Vol] 219 10*3/uL 150-450 [facility] Potassium measurement (mass/ volume)Ordered By: Deborah Penaloza on 01-04-2025 Potassium (Unsp spec) [Mass/Vol] 3.7 mmol/L 3.3-5.1 [facility] RBC Auto (Bld) [#/Vol]Ordere d By: Deborah Penaloza on 01-04-2025 RBC (Bld) [#/Vol] 3.90 10*6/uL Low 4.6-6.2 [facility] Serum creatinine measurement (mass/volume)Ordered By: Deborah Penaloza on 01-04-2025 Creatinine [Mass/Vol] 2.03 mg/dL High 0.70-1.20 [facility] Serum globulin measurementOr dered By: Deborah Penaloza on 01-04-2025 Globulin (S) [Mass/Vol] 3.2 g/dL 2.2-4.2 [facility] Serum glucose measurement (m ass/volume)Ordered By: Deborah Penaloza on 01-04-2025 Glucose [Mass/Vol] 97 mg/dL 70-99 [facility] Serum or plasma alanine de paz otransferase (ALT) measurementOrdered By: Deborah Penaloza on 01-04-2025 ALT [Catalytic activity/Vol] 22 U/L <47 [facility] Serum or plasma albumin fidel urement (mass/volume)Ordered By: Deborah Penaloza on 01-04-2025 Albumin [Mass/Vol] 3.6 g/dL 3.5-5.0 [facility] Serum or plasma alkaline nick sphatase measurementOrdered By: Deborah Penaloza on 01-04-2025 ALP [Catalytic activity/Vol] 743 U/L High 40-129 [facility] Serum or plasma calcium fidel urement (mass/volume)Ordered By: Deborah Penaloza on 01-04-2025 Calcium [Mass/Vol] 9.0 mg/dL 7.6-11.0 [facility] Serum or plasma urea nitroge n measurement (mass/volume)Ordered By: Deborah Penaloza on 01-04-2025 Urea nitrogen [Mass/Vol] 30 mg/dL High 4-19 [facility] Sodium levelOrdered By: Russell Penaloza on 01-04-2025 Sodium [Moles/Vol] 144 mmol/L 133-145 [facility] Total proteinOrdered By: Janette Penaloza on 01-04-2025 Protein [Mass/Vol] 6.8 g/dL 5.9-8.4 [facility] Troponin T.cardiac [Mass/vol ume] in Serum or Plasma by High sensitivity methodOrdered By: Deborah Penaloza on 01-04-2025 Troponin T.cardiac High sensitivity method [Mass/Vol] 45 ng/L High <22 [facility] Troponin T.cardiac High sensitivity method [Mass/Vol] 42 ng/L High <22 [facility] Troponin T.cardiac High sensitivity method [Mass/Vol] 45 ng/L High <22 [facility] White blood cell (WBC) count Ordered By: Deborah Penaloza on 01-04-2025 WBC (Bld) [#/Vol] 6.2 10*3/uL 4.4-11.0 [facility] Telephone Encounteron 2024 [employer] Sales Assistant Authentication Interface Message Text Last visit with PCP (YUVAL GAYLE) was 09/17/2024 No future appointment with PCP (YUVAL GAYLE) Thank you. [facility] Telephone Encounteron 2024 [employer] Sales Assistant Authentication Interface Message Text [facility] [employer] Sales Assistant Authentication Interface Message Text Requested Prescriptions Pending Prescriptions Disp Refills Apixaban (ELIQUIS) 5 MG tablet 28 Tablet 0 Sig: Take 1 Tablet by mouth 2 times daily. Last visit with PCP (YUVAL GAYEL) was 09/17/2024 No future appointment with PCP (YUVAL GAYLE) Normal [facility] Telephone Encounteron 2024 [employer] Sales Assistant Authentication Interface Message Text No response letter printed and mailed to patient Normal [facility] Telephone Encounteron 2024 [employer] Sales Assistant Authentication Interface Message Text Normal [facility] Telephone Encounteron 2024 [employer] Sales Assistant Authentication Interface Message Text Normal [facility] Telephone Encounteron 2024 [employer] Sales Assistant Authentication Interface Message Text Normal [facility] Telephone Encounteron 2024 [employer]ing Sales Assistant Authentication Interface Message Text Normal [facility] Telephone Encounteron 2024 [employer] Sales Assistant Authentication Interface Message Text [facility] Progress Noteson 10-26-2024 [employer] Sales Assistant Authentication Interface Message Text Normal [facility] [employer] Sales Assistant Authentication Interface Message Text Discharge instructions reviewed with patient and significant other at bedside. This RN stressed importance of medication compliance and adherence to medication regimen. Significant other verbalized understanding, pt silent but nodded head. [facility] [employer] Sales Assistant Authentication Interface Message Text Normal [facility] [employer] Sales Assistant Authentication Interface Message Text Pt currently refusing all due medications d/t c/o feeling nauseated. This RN offered reaching out to provider for antiemetic. Pt declines. Pt instructed to let this RN know when he feels ready to take PO medications, pt agrees. Will follow up. [facility] Assessment AND Plan Noteon 0 10-25-2024 [employer] Sales Assistant Authentication Interface Message Text Max creatinine this stay 3.2, down trending to 1.46 which appears to be better than baseline - avoid nephrotoxic agents - repeat bmp as patient will allow Normal [facility] [employer] Sales Assistant Authentication Interface Message Text No leukocytosis, afebrile, stable on room air, procal elevated to 16.8 on admission Given recent hospitalization, treating for HAP - completed course of linezolid and cipro today 10/24 [facility] [employer] Sales Assistant Authentication Interface Message Text - apixaban 5 mg po bid Normal [facility] [employer] Sales Assistant Authentication Interface Message Text Level 3.2 10/21 - he declined potassium PO and IV - BMP as patient will allow Normal [facility] [employer] Sales Assistant Authentication Interface Message Text Level 1.5 10/21 - only agreeable to mag oxide - repeat level in am Normal [facility] [employer] Sales Assistant Authentication Interface Message Text With hyperbili - liver clinic as an outpatient - [facility] when patient willing Normal [facility] [employer] Sales Assistant Authentication Interface Message Text Normal [facility] BASIC METABOLIC PANELon 09-29 Anion gap [Moles/Vol] 20 mmol/L Normal 10-20 [facility] Comment on above: Performed By: #### C H8, HEPATIC, MG ####[facility] [id number] [place], [address] Calcium [Mass/Vol] 7.7 mg/dL Low 8.6-10.3 [facility] Comment on above: Performed By: #### C H8, HEPATIC, MG ####[facility] [id number] [place], [place], Chloride [Moles/Vol] 88 mmol/L Low 98-107 [facility] Comment on above: Performed By: #### C H8, HEPATIC, MG ####[facility] [id number] [place], [place], CO2 [Moles/Vol] 30 mmol/L Normal 21-31 [facility] Comment on above: Performed By: #### C H8, HEPATIC, MG ####[facility] [id number] [place], [place], Creatinine [Mass/Vol] 2.15 mg/dL High 0.70-1.30 [facility] Comment on above: Performed By: #### C H8, HEPATIC, MG ####[facility] [id number] [place], [place], ESTIMATED GFR (CKD-EPI) 38 mL/min/1.73sqm Low >=60 [facility] Comment on above: Result Comment: 2020 [...] Inclusion of Race in Diagnosing Kidney Disease. Ethiopian Journal of Kidney Diseases 202;79(2):268-88.e1.2. N Engl J Med 2020 Vol. 385 Issue 19 Pages 7791-3430 Performed By: #### C H8, HEPATIC, MG ####[facility] [id number] [place], [place], Glucose [Mass/Vol] 130 mg/dL High 74-109 [facility] Comment on above: Performed By: #### C H8, HEPATIC, MG ####[facility] [id number] [place], [place], Potassium [Moles/Vol] 4.0 mmol/L Normal 3.5-5.0 [facility] Comment on above: Performed By: #### C H8, HEPATIC, MG ####[facility] [id number] [place], [place], Sodium [Moles/Vol] 134 mmol/L Low 136-145 [facility] Comment on above: Performed By: #### C H8, HEPATIC, MG ####[facility] [id number] [place], [place], Urea nitrogen [Mass/Vol] 60 mg/dL High 7-25 [facility] Comment on above: Performed By: #### C H8, HEPATIC, MG ####[facility] [id number] [place], [place], Basic metabolic 2000 panelon 10-25-2024 Anion gap [Moles/Vol] 20 mmol/L 10 - 20 [facility] Calcium [Mass/Vol] 7.7 mg/dL Low 8.6 [...] Inclusion of Race in Diagnosing Kidney Disease. [place] Journal of Kidney Diseases 202;79(2):268-88.e1. 2. N Engl J Med 1 Vol. 385 Issue 19 Pages 2958-8391 Glucose [Mass/Vol] 130 mg/dL High 74 - [...] (Bld) [#/Vol] 0.07 10*3/uL Normal 0.00-0.20 [facility] Comment on above: Performed By: #### C BCDSAT ####[facility] PATHOLOGY [id number] [place] [address], Basophils/100 WBC (Bld) 0.5 % Normal <=1.9 [facility] Comment on above: Performed By: #### C BCDSAT ####[facility] PATHOLOGY [id number] [place], [place], Eosinophils (Bld) [#/Vol] 0.02 10*3/uL Normal 0.00-0.70 [facility] Comment on above: Performed By: #### C BCDSAT ####[facility] PATHOLOGY [id number] [place], [place], Eosinophils/100 WBC (Bld) 0.1 % Normal 0.1-4.0 [facility] Comment on above: Performed By: #### C BCDSAT ####[facility] PATHOLOGY [id number] [place], [place], Erythrocyte distribution width (RBC) [Ratio] 16.9 % High 11.5-14.5 The [facility] Comment on above: Performed By: #### C BCDSAT ####[facility] PATHOLOGY [id number] [place], [place], Hematocrit (Bld) [Volume fraction] 36.8 % Low 41.0-53.0 [facility] Comment on above: Performed By: #### C BCDSAT ####S PATHOLOGY [id number] [place], [place], Hemoglobin (Bld) [Mass/Vol] 12.3 g/dL Low 13.9-16.3 The [facility] Comment on above: Performed By: #### C BCDSAT ####[facility] PATHOLOGY [id number] [place], [place], Lymphocytes (Bld) [#/Vol] 1.95 10*3/uL Normal 1.00-4.80 [facility] Comment on above: Performed By: #### C BCDSAT ####[facility] PATHOLOGY [id number] [place], [place], Lymphocytes/100 WBC (Bld) 13.8 % Low 24.0-44.0 [facility] Comment on above: Performed By: #### C BCDSAT ####[facility] PATHOLOGY [id number] [place], [place], MCH (RBC) [Entitic mass] 34.9 pg High 26.0-34.0 The [facility] Comment on above: Performed By: #### C BCDSAT ####[facility] PATHOLOGY [id number] [place], MCHC (RBC) [Mass/Vol] 33.5 g/dL Normal 32.0-35.9 The [facility] Comment on above: Performed By: #### C BCDSAT ####[facility] PATHOLOGY [id number] [place], MCV (RBC) [Entitic vol] 104 fL High 80-100 The [facility] Comment on above: Performed By: #### C BCDSAT ####[facility] PATHOLOGY [id number] [place], [place], Monocytes (Bld) [#/Vol] 1.04 10*3/uL High 0.20-1.00 [facility] Comment on above: Performed By: #### C BCDSAT ####[facility] PATHOLOGY [id number] [place], Monocytes/100 WBC (Bld) 7.3 % Normal 2.0-11.0 [facility] Comment on above: Performed By: #### Kelly HERNANDEZAT ####[facility] PATHOLOGY [id number] [place], [place], Neutrophils (Bld) [#/Vol] 11.07 10*3/uL High 1.50-8.00 [facility] Comment on above: Performed By: #### Kelly HERNANDEZAT ####[facility] PATHOLOGY [id number] [place], Neutrophils/100 WBC (Bld) 78.2 % High 31.0-76.0 [facility] Comment on above: Performed By: #### Kelly HERNANDEZAT ####[facility] PATHOLOGY [id number] [place], Platelet mean volume (Bld) [Entitic vol] 9.2 fL Normal 7.5-11.2 [facility] Comment on above: Performed By: #### Kelly HERNANDEZAT ####[facility] PATHOLOGY [id number] [place], Platelets (Bld) [#/Vol] 226 10*3/uL Normal 150-400 [facility] Comment on above: Performed By: #### Kelly HERNANDEZAT ####[facility] PATHOLOGY [id number] [place], [place], RBC (Bld) [#/Vol] 3.54 10*6/uL Low 4.50-5.90 [facility] Comment on above: Performed By: #### Kelly HERNANDEZAT ####[facility] PATHOLOGY [id number] [place], WBC (Bld) [#/Vol] 14.1 10*3/uL High 4.5-11.5 [facility] Comment on above: Performed By: #### Kelly HERNANDEZAT ####[facility] PATHOLOGY [id number] [place], [place], Consultson 10-25-2024 [employer] Sales Assistant Authentication Interface Message Text Normal [facility] Business Banking Sales Assistant Authentication Interface Message Text Normal [facility] HEPATIC FUNCTION PANELon Albumin [Mass/Vol] 3.1 [...] Albumin [Mass/Vol] 3.1 g/dL Low 3.5-5.7 [facility] Comment on above: Performed By: #### Kelly Simon, HEPATIC, MG ####[facility] PATHOLOGY [id number] [place], [place], ALK 393 IU/L High 34-104 [facility] Comment on above: Performed By: #### Kelly Simon, HEPATIC, MG ####S PATHOLOGY [id number] [place], [place], ALT [Catalytic activity/Vol] 54 U/L High 7-52 The [facility] Comment on above: Performed By: #### Kelly Simon, HEPATIC, MG ####[facility] PATHOLOGY [id number] [place], [place], AST [Catalytic activity/Vol] 48 U/L High 13-39 The [facility] Comment on above: Performed By: #### Kelly Simon, HEPATIC, MG ####[facility] PATHOLOGY [id number] [place], Bilirubin [Mass/Vol] 7.3 mg/dL High 0.3-1.0 The [facility] Comment on above: Performed By: #### Kelly Simon, HEPATIC, MG ####[facility] PATHOLOGY [id number] [place], [place], Bilirubin.direct [Mass/Vol] 3.77 mg/dL High 0.03-0.18 The [facility] Comment on above: Performed By: #### Kelly HGissel, HEPATIC, MG ####[facility] PATHOLOGY [id number] [place], [place], Protein [Mass/Vol] 6.0 g/dL Normal 6.0-8.3 [facility] Comment on above: Performed By: #### C H8, HEPATIC, MG ####S PATHOLOGY [id number] [place], [place], MAGNESIUMon 10-25-2024 Interpretation and review of laboratory results Normal [facility] Magnesium [Mass/Vol] 2.1 mg/dL 1.9 - 2 .7 mg/dL [facility] Magnesium [Mass/Vol] 2.1 mg/dL Normal 1.9-2.7 [facility] Comment on above: Performed By: #### C H8, HEPATIC, MG ####[facility] PATHOLOGY [id number] [place], [place], No Panel Informationon 10-25 Interpretation and review of laboratory results Abnormal [facility] Progress Noteson 10-25-2024 Business Banking Sales Assistant Authentication Interface Message Text Normal [facility] Business Banking Sales Assistant Authentication Interface Message Text Normal The [facility] Business Banking Sales Assistant Authentication Interface Message Text Normal [facility] XR CHEST AP OR PA 1 VIEWon 0 10-25-2024 XR CHEST AP OR PA 1 VIEW Normal [facility] XR Chest Single viewon 10-25 EXAMINATION: XR CHES T AP OR PA 1 VIEW 10/25/2024 04:22 PM CLINICAL HISTORY: Leukocytosis ASSOCIATED DIAGNOSIS: Leukocytosis ORDERING PROVIDER: ANSHUL LAIRD TECHNOLOGISTS NOTE: COMPARISON: XR CHEST AP OR [...] ASSOCIATED DIAGNOSIS: Leukocytosis ORDERING PROVIDER: ANSHUL LAIRD TECHNOLOGISTS NOTE: COMPARISON: XR CHEST AP OR [...] at the left lung apex. MACRO: None [facility]iology Study observation (narrative) [facility] XR Chest Single viewOrdered By: Rosario William on 10-25-2024 [facility] Work Phone: Assessment AND Plan Noteon 0 10-24-2024 Business Banking Sales Assistant Authentication Interface Message Text With [facility] as an outpatient - HFP when patient willing Normal The [employer] [employer] Banking Sales Assistant Authentication Interface Message Text Max creatinine this stay 3.2, down trending to 1.46 which appears to be better than baseline - avoid nephrotoxic agents - repeat bmp as patient will allow Normal The [facility] Business Banking Sales Assistant Authentication Interface Message Text Normal The [facility] Business Banking Sales Assistant Authentication Interface Message Text - apixaban 5 mg po bid Normal The [facility] Business Banking Sales Assistant Authentication Interface Message Text Level 3.2 10/21 - he declined potassium PO and IV again today - BMP in am Normal The [facility] Business Banking Sales Assistant Authentication Interface Message Text Level 1.5 10/21 - only agreeable to mag oxide - repeat level in am Normal The [employer] Sales Assistant Authentication Interface Message Text No leukocytosis, afebrile, stable on room air, procal elevated to 16.8 on admission Given recent hospitalization, treating for HAP - complete course of linezolid and cipro today (d7/7) Normal The [facility] Progress Noteson 10-24-2024 Business Banking Sales Assistant Authentication Interface Message Text Normal The [facility] Assessment AND Plan Noteon 0 10-23-2024 Business Banking Sales Assistant Authentication Interface Message Text Level 3.2 10/21 - he declined potassium PO and IV again today - BMP in am Normal [facility] Business Banking Sales Assistant Authentication Interface Message Text With [facility] as an outpatient - HFP when patient willing Normal The [facility] Business Banking Sales Assistant Authentication Interface Message Text Level 1.5 10/21 - only agreeable to mag oxide - repeat level in am Normal [facility] Business Banking Sales Assistant Authentication Interface Message Text - apixaban 5 mg po bid Normal [facility] Business Banking Sales Assistant Authentication Interface Message Text Normal [facility] Business Banking Sales Assistant Authentication Interface Message Text No leukocytosis, afebrile, stable on room air, procal elevated to 16.8 on admission Given recent hospitalization, treating for HAP - complete course of linezolid and cipro today () Normal [facility] Business Banking Sales Assistant Authentication Interface Message Text Max creatinine this stay 3.2, down trending to 1.46 which appears to be better than baseline - avoid nephrotoxic agents - repeat bmp as patient will allow Normal The [facility] Progress Noteson 10-23-2024 Business Banking Sales Assistant Authentication Interface Message Text Normal The [facility] Business Banking Sales Assistant Authentication Interface Message Text Normal The [facility] Business Banking Sales Assistant Authentication Interface Message Text Normal The [facility] Assessment AND Plan Noteon 0 10-22-2024 Business Banking Sales Assistant Authentication Interface Message Text With [facility] as an outpatient - HFP when patient willing Normal The [facility] Business Banking Sales Assistant Authentication Interface Message Text Echo with LVEF 15% - Bumex 1 mg daily - will restart today - isordil 20 mg tid - patient refusing - patient declining further medication titration - monitor on tele if agreeable - follow up with heart failure as an outpatient - continue GOC discussions Normal [facility] Business Banking Sales Assistant Authentication Interface Message Text No leukocytosis, afebrile, stable on room air, procal elevated to 16.8 on admission Given recent hospitalization, treating for HAP - continue linezolid and cipro (d6/7) Normal The [facility] Business Banking Sales Assistant Authentication Interface Message Text Level 1.5 10/21 - only agreeable to mag oxide - repeat level in am Normal The [facility] Business Banking Sales Assistant Authentication Interface Message Text Level 3.2 10/21 - he declined potassium PO and IV again today - BMP in am Normal The [facility] Business Banking Sales Assistant Authentication Interface Message Text - apixaban 5 mg po bid Normal The [facility] Business Banking Sales Assistant Authentication Interface Message Text Max creatinine this stay 3.2, down trending to 1.46 which appears to be better than baseline - avoid nephrotoxic agents - repeat bmp in am Normal The [facility] Consultson 10-22-2024 Business Banking Sales Assistant Authentication Interface Message Text Normal The [facility] Progress Noteson 10-22-2024 Business Banking Sales Assistant Authentication Interface Message Text Normal The [facility] Business Banking Sales Assistant Authentication Interface Message Text SOCIAL WORK Per interdisciplinary rounds, pt is not medically cleared for discharge. NIR is 10/23/24. Plan is for pt to discharge home with no needs. SW will continue to follow. No weekend SW needs. Selena Feliz FREELANCE COPYWRITER, NURSING TECHN Inpatient Ebd Teacher Normal The [facility] Business Banking Sales Assistant Authentication Interface Message Text Normal The [facility] Assessment AND Plan Noteon 0 10-21-2024 Business Banking Sales Assistant Authentication Interface Message Text Echo with LVEF 15% - Bumex 1 mg daily on hold - consider restarting in am - isordil 20 mg tid - patient declining further medication titration - monitor on tele if agreeable - follow up with heart failure as an outpatient - continue GOC discussion Normal The [facility] Business Banking Sales Assistant Authentication Interface Message Text Level 1.5 this am - only agreeable to mag oxide - repeat level in am Normal The [facility] Business Banking Sales Assistant Authentication Interface Message Text - apixaban 5 mg po bid Normal The [facility] Business Banking Sales Assistant Authentication Interface Message Text Level 3.2 - he declined potassium PO and IV - BMP in am Normal The [facility] Business Banking Sales Assistant Authentication Interface Message Text With [facility] - liver clinic as an outpatient - HFP in am Normal The [facility] Business Banking Sales Assistant Authentication Interface Message Text Max creatinine this stay 3.2, down trending to 1.46 which appears to be better than baseline - avoid nephrotoxic agents - repeat bmp in am Normal The [facility] Business Banking Sales Assistant Authentication Interface Message Text No leukocytosis, afebrile, stable on room air, procal elevated to 16.8 Given recent hospitalization, treating for HAP - continue linezolid and cipro Normal The [facility] Business Banking Sales Assistant Authentication Interface Message Text [facility] this time has resolved Normal The [facility] BASIC METABOLIC PANELon 04-2 Anion gap [Moles/Vol] 17 mmol/L Normal 10-20 The [facility] Comment on above: Performed By: #### H EPATIC, MG, CH8 ####[facility] PATHOLOGY [id number] [place], [place], Calcium [Mass/Vol] 7.7 mg/dL Low 8.6-10.3 The [facility] Comment on above: Performed By: #### H EPATIC, MG, CH8 ####[facility] PATHOLOGY [id number] [place], [place], Chloride [Moles/Vol] 96 mmol/L Low 98-107 [facility] Comment on above: Performed By: #### H EPATIC, MG, CH8 ####S PATHOLOGY [id number] [place], CO2 [Moles/Vol] 32 mmol/L High 21-31 [facility] Comment on above: Performed By: #### H EPATIC, MG, CH8 ####S PATHOLOGY [id number] [place], [place], Creatinine [Mass/Vol] 1.46 mg/dL High 0.70-1.30 The [facility] Comment on above: Performed By: #### H EPATIC, MG, CH8 ####S PATHOLOGY [id number] [place], [place], ESTIMATED GFR (CKD-EPI) 60 mL/min/1.73sqm Normal >=60 [facility] Comment on above: Result Comment: 2020 [...] Inclusion of Race in Diagnosing Kidney Disease. Ethiopian Journal of Kidney Diseases 202;79(2):268-88.e1.2. N Engl J Med 1 Vol. 385 Issue 19 Pages [phone] Performed By: #### H MG TICO, FERNANDO8 ####S PATHOLOGY [id number] [place], [place], Glucose [Mass/Vol] 131 mg/dL High 74-109 [facility] Comment on above: Performed By: #### MG NEPTALI, FERNANDO8 ####S PATHOLOGY [id number] [place], Potassium [Moles/Vol] 3.2 mmol/L Low 3.5-5.0 [facility] Comment on above: Performed By: #### MG NEPTALI, AUGUSTO ####S PATHOLOGY [id number] [place], Sodium [Moles/Vol] 142 mmol/L Normal 136-145 [facility] Comment on above: Performed By: #### MG NEPTALI, AUGUSTO ####S PATHOLOGY [id number] [place], Urea nitrogen [Mass/Vol] 52 mg/dL High 7-25 [facility] Comment on above: Performed By: #### MG NEPTALI, AUGUSTO ####[facility] PATHOLOGY [id number] [place], [place], Basic metabolic 2000 panelon 10-21-2024 Anion gap [Moles/Vol] 17 mmol/L 10 - 20 [facility] Calcium [Mass/Vol] 7.7 mg/dL Low 8.6 [...] Inclusion of Race in Diagnosing Kidney Disease. [place] Journal of Kidney Diseases 2021;79(2):268-88.e1. 2. N Engl J Med 2020 Vol. 385 Issue 19 Pages [phone] Glucose [Mass/Vol] 131 mg/dL High 74 - [...] (Bld) [#/Vol] 0.02 10*3/uL Normal 0.00-0.20 [facility] Comment on above: Performed By: #### C MARYAT ####S PATHOLOGY [id number] [place] [address], Basophils/100 WBC (Bld) 0.2 % Normal <=1.9 [facility] Comment on above: Performed By: #### C GARRETTDSAT ####S PATHOLOGY [id number] [place], Eosinophils (Bld) [#/Vol] 0.02 10*3/uL Normal 0.00-0.70 [facility] Comment on above: Performed By: #### C MARYAT ####S PATHOLOGY [id number] [place] [address], Eosinophils/100 WBC (Bld) 0.2 % Normal 0.1-4.0 [facility] Comment on above: Performed By: #### C BCDSAT ####[facility] PATHOLOGY [id number] [place], [place], Erythrocyte distribution width (RBC) [Ratio] 17.0 % High 11.5-14.5 [facility] Comment on above: Performed By: #### C GARRETTDSAT ####[facility] PATHOLOGY [id number] [place], Hematocrit (Bld) [Volume fraction] 40.8 % Low 41.0-53.0 [facility] Comment on above: Performed By: #### C BCDSAT ####[facility] PATHOLOGY [id number] [place] [address], Hemoglobin (Bld) [Mass/Vol] 13.8 g/dL Low 13.9-16.3 [facility] Comment on above: Performed By: #### C BCDSAT ####[facility] PATHOLOGY [id number] [place] [address], Lymphocytes (Bld) [#/Vol] 0.84 10*3/uL Low 1.00-4.80 [facility] Comment on above: Performed By: #### C BCSHEYLAAT ####[facility] PATHOLOGY [id number] [place], Lymphocytes/100 WBC (Bld) 8.7 % Low 24.0-44.0 [facility] Comment on above: Performed By: #### C BCSHEYLAAT ####[facility] PATHOLOGY [id number] [place], [place], MCH (RBC) [Entitic mass] 35.2 pg High 26.0-34.0 [facility] Comment on above: Performed By: #### C BCDSAT ####[facility] PATHOLOGY [id number] [place], MCHC (RBC) [Mass/Vol] 33.7 g/dL Normal 32.0-35.9 [facility] Comment on above: Performed By: #### C BCDSAT ####[facility] PATHOLOGY [id number] [place], MCV (RBC) [Entitic vol] 105 fL High 80-100 [facility] Comment on above: Performed By: #### C BCDSAT ####[facility] PATHOLOGY [id number] [place], Monocytes (Bld) [#/Vol] 0.50 10*3/uL Normal 0.20-1.00 [facility] Comment on above: Performed By: #### C BCDSAT ####[facility] PATHOLOGY [id number] [place], Monocytes/100 WBC (Bld) 5.1 % Normal 2.0-11.0 [facility] Comment on above: Performed By: #### C BCDSAT ####[facility] PATHOLOGY [id number] [place], Neutrophils (Bld) [#/Vol] 8.32 10*3/uL High 1.50-8.00 [facility] Comment on above: Performed By: #### C BCDSAT ####[facility] PATHOLOGY [id number] [place], Neutrophils/100 WBC (Bld) 85.8 % High 31.0-76.0 [facility] Comment on above: Performed By: #### C BCDSAT ####[facility] PATHOLOGY [id number] [place], Platelet mean volume (Bld) [Entitic vol] 8.3 fL Normal 7.5-11.2 [facility] Comment on above: Performed By: #### C BCDSAT ####[facility] PATHOLOGY [id number] [place], Platelets (Bld) [#/Vol] 162 10*3/uL Normal 150-400 [facility] Comment on above: Performed By: #### C BCDSAT ####[facility] PATHOLOGY [id number] [place], RBC (Bld) [#/Vol] 3.90 10*6/uL Low 4.50-5.90 [facility] Comment on above: Performed By: #### C BCDSAT ####[facility] PATHOLOGY [id number] [place], WBC (Bld) [#/Vol] 9.7 10*3/uL Normal 4.5-11.5 The [facility] Comment on above: Performed By: #### C BCDSAT ####S PATHOLOGY [id number] [place], [place], Disruptive Behavior Progress Noteon 10-21-2024 Business Banking Sales Assistant Authentication Interface Message Text Normal The [facility] HEPATIC FUNCTION PANELon Albumin [Mass/Vol] 3.1 [...] Albumin [Mass/Vol] 3.1 g/dL Low 3.5-5.7 The [facility] Comment on above: Performed By: #### MG GUNDERSON CH8 ####S PATHOLOGY [id number] [place], [place], ALK 348 IU/L High 34-104 The [facility] Comment on above: Performed By: #### MG GUNDERSON CH8 ####S PATHOLOGY [id number] [place], ALT [Catalytic activity/Vol] 43 U/L Normal 7-52 The [facility] Comment on above: Performed By: #### MG GUNDERSON CH8 ####S PATHOLOGY [id number] [place], AST [Catalytic activity/Vol] 60 U/L High 13-39 The [facility] Comment on above: Performed By: #### MG GUNDERSON CH8 ####S PATHOLOGY [id number] [place], Bilirubin [Mass/Vol] 6.4 mg/dL High 0.3-1.0 [facility] Comment on above: Performed By: #### H MG TICO, CH8 ####S PATHOLOGY [id number] [place], Bilirubin.direct [Mass/Vol] 3.54 mg/dL High 0.03-0.18 [facility] Comment on above: Performed By: #### H MG TICO, CH8 ####S PATHOLOGY [id number] [place], Protein [Mass/Vol] 6.3 g/dL Normal 6.0-8.3 [facility] Comment on above: Performed By: #### H MG TICO, CH8 ####S PATHOLOGY [id number] [place], MAGNESIUMon 10-21-2024 Magnesium [Mass/Vol] 1.5 mg/dL Low 1.9 - 2 .7 mg/dL [facility] Magnesium [Mass/Vol] 1.5 mg/dL Low 1.9-2.7 [facility] Comment on above: Performed By: #### H MG TICO, CH8 ####[facility] PATHOLOGY [id number] [place], No Panel Informationon 10-21 Interpretation and review of laboratory results Abnormal [facility] Progress Noteson 10-21-2024 Business Banking Sales Assistant Authentication Interface Message Text Normal [facility] Business Banking Sales Assistant Authentication Interface Message Text Normal [facility] Business Banking Sales Assistant Authentication Interface Message Text Patients potassium is 3.2. RN attempted to administer ordered potassium replacement. Patient refused medication. Pt educated on risks of not taking medication with a low potassium. Dr. Myers notified. Normal [facility] Business Banking Sales Assistant Authentication Interface Message Text Per interdisciplinary rounds, GOC conversation to take place with pt today. SW will follow for outcome of this meeting. JAMIE Ford, [facility] Inpatient Ebd Teacher Normal [facility] Business Banking Sales Assistant Authentication Interface Message Text Normal [facility] Transfer Noteon 10-21-2024 Business Banking Sales Assistant Authentication Interface Message Text Normal [facility] BASIC METABOLIC PANELon 09-29 Anion gap [Moles/Vol] 19 mmol/L Normal 10-20 [facility] Comment on above: Performed By: #### C H8, HEPATIC, MG ####[facility] PATHOLOGY [id number] [place], Calcium [Mass/Vol] 8.4 mg/dL Low 8.6-10.3 [facility] Comment on above: Performed By: #### C H8, HEPATIC, MG ####[facility] PATHOLOGY [id number] [place], Chloride [Moles/Vol] 99 mmol/L Normal 98-107 [facility] Comment on above: Performed By: #### C H8, HEPATIC, MG ####[facility] PATHOLOGY [id number] [place], CO2 [Moles/Vol] 29 mmol/L Normal 21-31 [facility] Comment on above: Performed By: #### C H8, HEPATIC, MG ####[facility] PATHOLOGY [id number] [place], Creatinine [Mass/Vol] 2.20 mg/dL High 0.70-1.30 [facility] Comment on above: Performed By: #### C H8, HEPATIC, MG ####[facility] PATHOLOGY [id number] [place], ESTIMATED GFR (CKD-EPI) 36 mL/min/1.73sqm Low >=60 [facility] Comment on above: Result Comment: 2020 [...] Inclusion of Race in Diagnosing Kidney Disease. [place]ian Journal of Kidney Diseases 202;79(2):268-88.e1.2. N Engl J Med 1 Vol. 385 Issue 19 Pages 7182-1937 Performed By: #### C H8, HEPATIC, MG ####[facility] PATHOLOGY [id number] [place], Glucose [Mass/Vol] 117 mg/dL High 74-109 [facility] Comment on above: Performed By: #### C H8, HEPATIC, MG ####[facility] PATHOLOGY [id number] [place], Potassium [Moles/Vol] 3.5 mmol/L Normal 3.5-5.0 [facility] Comment on above: Performed By: #### C H8, HEPATIC, MG ####[facility] PATHOLOGY [id number] [place], Sodium [Moles/Vol] 143 mmol/L Normal 136-145 [facility] Comment on above: Performed By: #### C H8, HEPATIC, MG ####S PATHOLOGY [id number] [place], Urea nitrogen [Mass/Vol] 72 mg/dL High 7-25 [facility] Comment on above: Performed By: #### C H8, HEPATIC, MG ####[facility] PATHOLOGY [id number] [place], [place], Basic metabolic 2000 panelOr dered By: Jami Xie on 10-20-2024 Anion gap [Moles/Vol] 19 mmol/L 10 - 20 [facility] Calcium [Mass/Vol] 8.4 mg/dL Low 8.6 [...] Inclusion of Race in Diagnosing Kidney Disease. [place] Journal of Kidney Diseases 202;79(2):268-88.e1. 2. N Engl J Med 2020 Vol. 385 Issue 19 Pages [phone] Glucose [Mass/Vol] 117 mg/dL High 74 - [...] (Bld) [#/Vol] 0.07 10*3/uL Normal 0.00-0.20 [facility] Comment on above: Performed By: #### C BCDSAT ####S PATHOLOGY [id number] [place] [address], Basophils/100 WBC (Bld) 0.6 % Normal <=1.9 [facility] Comment on above: Performed By: #### C BCDSAT ####S PATHOLOGY [id number] [place], Eosinophils (Bld) [#/Vol] 0.02 10*3/uL Normal 0.00-0.70 [facility] Comment on above: Performed By: #### C BCDSAT ####S PATHOLOGY [id number] [place], Eosinophils/100 WBC (Bld) 0.2 % Normal 0.1-4.0 [facility] Comment on above: Performed By: #### C BCDSAT ####S PATHOLOGY [id number] [place] [address], Erythrocyte distribution width (RBC) [Ratio] 17.2 % High 11.5-14.5 [facility] Comment on above: Performed By: #### C BCDSAT ####[facility] PATHOLOGY [id number] [place] [address], Hematocrit (Bld) [Volume fraction] 44.2 % Normal 41.0-53.0 [facility] Comment on above: Performed By: #### C BCDSAT ####[facility] PATHOLOGY [id number] [place] [address], Hemoglobin (Bld) [Mass/Vol] 14.9 g/dL Normal 13.9-16.3 [facility] Comment on above: Performed By: #### C BCDSAT ####[facility] PATHOLOGY [id number] [place] [address], Lymphocytes (Bld) [#/Vol] 0.95 10*3/uL Low 1.00-4.80 [facility] Comment on above: Performed By: #### C BCDSAT ####[facility] PATHOLOGY [id number] [place] [address], Lymphocytes/100 WBC (Bld) 8.2 % Low 24.0-44.0 [facility] Comment on above: Performed By: #### C BCDSAT ####[facility] PATHOLOGY [id number] [place] [address], MCH (RBC) [Entitic mass] 34.9 pg High 26.0-34.0 The [facility] Comment on above: Performed By: #### C BCDSAT ####[facility] PATHOLOGY [id number] [place] [address], MCHC (RBC) [Mass/Vol] 33.7 g/dL Normal 32.0-35.9 The [facility] Comment on above: Performed By: #### C BCDSAT ####[facility] PATHOLOGY [id number] [place] [address], MCV (RBC) [Entitic vol] 104 fL High 80-100 [facility] Comment on above: Performed By: #### C BCDSAT ####[facility] PATHOLOGY [id number] [place] [address], Monocytes (Bld) [#/Vol] 0.60 10*3/uL Normal 0.20-1.00 [facility] Comment on above: Performed By: #### C BCDSAT ####[facility] PATHOLOGY [id number] [place], [place], Monocytes/100 WBC (Bld) 5.2 % Normal 2.0-11.0 [facility] Comment on above: Performed By: #### C BCDSAT ####[facility] PATHOLOGY [id number] [place], [place], Neutrophils (Bld) [#/Vol] 9.91 10*3/uL High 1.50-8.00 [facility] Comment on above: Performed By: #### C BCDSAT ####[facility] PATHOLOGY [id number] [place] [address], Neutrophils/100 WBC (Bld) 85.8 % High 31.0-76.0 [facility] Comment on above: Performed By: #### C BCDSAT ####[facility] PATHOLOGY [id number] [place], [place], Platelet mean volume (Bld) [Entitic vol] 8.5 fL Normal 7.5-11.2 [facility] Comment on above: Performed By: #### C BCDSAT ####[facility] PATHOLOGY [id number] [place], [place], Platelets (Bld) [#/Vol] 142 10*3/uL Low 150-400 [facility] Comment on above: Performed By: #### C BCDSAT ####[facility] PATHOLOGY [id number] [place], [place], RBC (Bld) [#/Vol] 4.27 10*6/uL Low 4.50-5.90 [facility] Comment on above: Performed By: #### C BCDSAT ####[facility] PATHOLOGY [id number] [place], [place], WBC (Bld) [#/Vol] 11.5 10*3/uL Normal 4.5-11.5 The [facility] Comment on above: Performed By: #### C BCDSAT ####[facility] [id number] [place], [place], Disruptive Behavior Progress Noteon 10-20-2024 Business Banking Sales Assistant Authentication Interface Message Text Normal The [facility] Business Banking Sales Assistant Authentication Interface Message Text Normal [facility] EKG 12 LEAD - PERFORMon 09-29 [...] wave Atrium by EKG 53 BPM Metr [facility] P wave axis 70 degrees [facility] P-R Interval 154 ms [facility] Q-T interval 546 ms [facility] Q-T interval corrected 512 ms [facility] QRS axis 226 degrees [facility] QRS duration [...] 4.05 mg/dL High 0.03 - 0.18 mg/dL [facility] Interpretation and review of laboratory results Abnormal [facility] Protein [Mass/Vol] 6.4 g/dL 6.0 - 8.3 g/dL [facility] Albumin [Mass/Vol] 3.3 g/dL Low 3.5-5.7 The [facility] Comment on above: Performed By: #### C H8, HEPATIC, MG ####[facility] [id number] [place], [address] ALK 359 IU/L High 34-104 [facility] Comment on above: Performed By: #### C H8, HEPATIC, MG ####[facility] [id number] [place], [place], ALT [Catalytic activity/Vol] 33 U/L Normal 7-52 The [facility] Comment on above: Performed By: #### C H8, HEPATIC, MG ####[facility] [id number] [place], [place], AST [Catalytic activity/Vol] 50 U/L High 13-39 The [facility] Comment on above: Performed By: #### C H8, HEPATIC, MG ####[facility]Y [id number] [place], Bilirubin [Mass/Vol] 7.9 mg/dL High 0.3-1.0 [facility] Comment on above: Performed By: #### C H8, HEPATIC, MG ####[facility] [id number] [place], [place], Bilirubin.direct [Mass/Vol] 4.05 mg/dL High 0.03-0.18 The [facility] Comment on above: Performed By: #### C H8, HEPATIC, MG ####[facility] [id number] [place], Protein [Mass/Vol] 6.4 g/dL Normal 6.0-8.3 The [facility] Comment on above: Performed By: #### C H8, HEPATIC, MG ####[facility] [id number] [place], [place], LACTIC ACIDOrdered By: Yasmany Moran on 10-20-2024 Interpretation and review of laboratory results Abnormal [facility] Lactate [Moles/Vol] 2.1 mmol/L High 0.5 - 1. 6 mmol/L [facility] This test was developed, and its performance characteristics determined by the Department of Pathology of The [facility]. It has not been cleared or approved by the FDA. This test is used for clinical purposes only. [facility] LACTIC ACIDon 10-20-2024 CR LACT 2.1 mmol/L High 0.5-1.6 The [facility] Comment on above: Order Comment: This test was developed, and its performance characteristics determined by the Department of Pathology of The [facility]. It has not been cleared or approved by the FDA. This test is used for clinical purposes only. Performed By: #### L ACT ####[facility] [id number] [place], [place], MAGNESIUMon 10-20-2024 Interpretation and review of laboratory results Normal [facility] Magnesium [Mass/Vol] 2.1 mg/dL 1.9 - 2 .7 mg/dL [facility] Magnesium [Mass/Vol] 2.1 mg/dL Normal 1.9-2.7 [facility] Comment on above: Performed By: #### C H8, HEPATIC, MG ####[facility] [id number] [place], [place], No Panel Informationon 10-20 [facility] Progress Noteson 10-20-2024 Business Banking Sales Assistant Authentication Interface Message Text Normal The [facility] Transfer Noteon 10-20-2024 Business Banking Sales Assistant Authentication Interface Message Text Normal [facility] Progress Noteson 10-19-2024 Business Banking Sales Assistant Authentication Interface Message Text Normal The [facility] [employer]ing Sales Assistant Authentication Interface Message Text 1439: Informed Dr. Myers IV team unable to place any ultrasound guided IVs or obtain any blood for labs. Normal [facility] Business Banking Sales Assistant Authentication Interface Message Text Patient Stated can I take my bumex after my IV is done. Patient now stating can I take my bumex after I eat. I will continue to attempt to deliver medications in a timely matter. Team is aware. Normal The [facility] Business Banking Sales Assistant Authentication Interface Message Text Normal [facility] Business Banking Sales Assistant Authentication Interface Message Text Normal [facility] Business Banking Sales Assistant Authentication Interface Message Text Normal [facility] Business Banking Sales Assistant Authentication Interface Message Text Normal [facility] BASIC METABOLIC PANELon 09-29 Anion gap [Moles/Vol] 21 mmol/L High 10-20 [facility] Comment on above: Performed By: #### H EPATIC, MG, PROCAL, CH8 ####[facility] [id number] [place], [place], Calcium [Mass/Vol] 8.7 mg/dL Normal 8.6-10.3 [facility] Comment on above: Performed By: #### H EPATIC, MG, PROCAL, CH8 ####[facility] [id number] [place], [place], Chloride [Moles/Vol] 101 mmol/L Normal 98-107 [facility] Comment on above: Performed By: #### H EPATIC, MG, PROCAL, CH8 ####[facility] [id number] [place], CO2 [Moles/Vol] 21 mmol/L Normal 21-31 [facility] Comment on above: Performed By: #### H EPATIC, MG, PROCAL, CH8 ####[facility] [id number] [place], Creatinine [Mass/Vol] 3.22 mg/dL High 0.70-1.30 [facility] Comment on above: Performed By: #### H EPATIC, MG, PROCAL, CH8 ####S PATHOLOGY [id number] [place], [place], ESTIMATED GFR (CKD-EPI) 23 mL/min/1.73sqm Low >=60 [facility] Comment on above: Result Comment: 2020 [...] Inclusion of Race in Diagnosing Kidney Disease. Ethiopian Journal of Kidney Diseases 2021;79(2):268-88.e1.2. N Engl J Med 1 Vol. 385 Issue 19 Pages 7147-9285 Performed By: #### H EPATIC, MG, PROCAL, CH8 ####[facility] [id number] [place], [place], Glucose [Mass/Vol] 169 mg/dL High 74-109 [facility] Comment on above: Performed By: #### H EPATIC, MG, PROCAL, CH8 ####[facility] [id number] [place], [place], Potassium [Moles/Vol] 4.1 mmol/L Normal 3.5-5.0 [facility] Comment on above: Performed By: #### H EPAMISAEL, MG, PROCAL, CH8 ####[facility] PATHOLOGY [id number] [place], [place], Sodium [Moles/Vol] 139 mmol/L Normal 136-145 [facility] Comment on above: Performed By: #### H EPATIC, MG, PROCAL, CH8 ####[facility] PATHOLOGY [id number] [place], Urea nitrogen [Mass/Vol] 88 mg/dL High 7-25 [facility] Comment on above: Performed By: #### H EPATIC, MG, PROCAL, CH8 ####[facility] PATHOLOGY [id number] [place], [place], Basic metabolic 2000 panelon 10-18-2024 Anion [...] Inclusion of Race in Diagnosing Kidney Disease. [place]ian Journal of Kidney Diseases 202;79(2):268-88.e1. 2. N Engl J Med 2020 Vol. 385 Issue 19 Pages 8148-1684 Glucose [Mass/Vol] 169 mg/dL High 74 - [...] 10.45 10*3/uL High 1.50 - 8.00 K/uL [facility] Neutrophils/100 WBC (Bld) 86.6 % High 31.0 - 76.0 % [facility] Platelet mean volume (Bld) [Entitic vol] 9.6 fL 7.5 - 11.2 fL [facility] Platelets (Bld) [#/Vol] 135 10*3/uL Low 150 - 400 K/uL [facility] RBC (Bld) [#/Vol] 3.9 10*6/uL Low [facility] WBC (Bld) [#/Vol] 12.1 10*3/uL High 4.5 - 11.5 K/uL [facility] Basophils (Bld) [#/Vol] 0.05 10*3/uL Normal 0.00-0.20 The [facility] Comment on above: Performed By: #### C BCDSAT ####[facility] PATHOLOGY [id number] [place] [address], Basophils/100 WBC (Bld) 0.4 % Normal <=1.9 The [facility] Comment on above: Performed By: #### C BCDSAT ####[facility] PATHOLOGY [id number] [place] [address], Eosinophils (Bld) [#/Vol] 0.00 10*3/uL Normal 0.00-0.70 The [facility] Comment on above: Performed By: #### C BCDSAT ####[facility] PATHOLOGY [id number] [place] [address], Eosinophils/100 WBC (Bld) 0.0 % Low 0.1-4.0 The [facility] Comment on above: Performed By: #### C BCDSAT ####[facility] PATHOLOGY [id number] [place] [address], Erythrocyte distribution width (RBC) [Ratio] 16.4 % High 11.5-14.5 The [facility] Comment on above: Performed By: #### C BCDSAT ####[facility] PATHOLOGY [id number] [place] [address], Hematocrit (Bld) [Volume fraction] 40.1 % Low 41.0-53.0 [facility] Comment on above: Performed By: #### Kelly HERNANDEZAT ####[facility] PATHOLOGY [id number] [place], [place], Hemoglobin (Bld) [Mass/Vol] 13.3 g/dL Low 13.9-16.3 [facility] Comment on above: Performed By: #### Kelly HERNANDEZAT ####[facility] PATHOLOGY [id number] [place] [address], Lymphocytes (Bld) [#/Vol] 0.99 10*3/uL Low 1.00-4.80 [facility] Comment on above: Performed By: #### Kelly HERNANDEZAT ####[facility] PATHOLOGY [id number] [place] [address], Lymphocytes/100 WBC (Bld) 8.2 % Low 24.0-44.0 The [facility] Comment on above: Performed By: #### Kelly HERNANDEZAT ####[facility] PATHOLOGY [id number] [place] [address], MCH (RBC) [Entitic mass] 34.2 pg High 26.0-34.0 The [facility] Comment on above: Performed By: #### Kelly HERNANDEZAT ####[facility] PATHOLOGY [id number] [place] [address], MCHC (RBC) [Mass/Vol] 33.2 g/dL Normal 32.0-35.9 The [facility] Comment on above: Performed By: #### Kelly HERNANDEZAT ####[facility] PATHOLOGY [id number] [place] [address], MCV (RBC) [Entitic vol] 103 fL High 80-100 The [facility] Comment on above: Performed By: #### Kelly HERNANDEZAT ####[facility] PATHOLOGY [id number] [place] [address], Monocytes (Bld) [#/Vol] 0.59 10*3/uL Normal 0.20-1.00 [facility] Comment on above: Performed By: #### Kelly HERNANDEZAT ####[facility] PATHOLOGY [id number] [place] [address] [place], Monocytes/100 WBC (Bld) 4.9 % Normal 2.0-11.0 [facility] Comment on above: Performed By: #### Kelly HERNANDEZAT ####S PATHOLOGY [id number] [place], [place], Neutrophils (Bld) [#/Vol] 10.45 10*3/uL High 1.50-8.00 [facility] Comment on above: Performed By: #### Kelly HERNANDEZAT ####S PATHOLOGY [id number] [place], Neutrophils/100 WBC (Bld) 86.6 % High 31.0-76.0 [facility] Comment on above: Performed By: #### Kelly HERNANDEZAT ####S PATHOLOGY [id number] [place] [address], Platelet mean volume (Bld) [Entitic vol] 9.6 fL Normal 7.5-11.2 [facility] Comment on above: Performed By: #### Kelly HERNANDEZAT ####[facility] PATHOLOGY [id number] [place], Platelets (Bld) [#/Vol] 135 10*3/uL Low 150-400 [facility] Comment on above: Performed By: #### Kelly HERNANDEZAT ####S PATHOLOGY [id number] [place], RBC (Bld) [#/Vol] 3.90 10*6/uL Low 4.50-5.90 [facility] Comment on above: Performed By: #### Kelly HERNANDEZAT ####S PATHOLOGY [id number] [place], [place], WBC (Bld) [#/Vol] 12.1 10*3/uL High 4.5-11.5 [facility] Comment on above: Performed By: #### Kelly HERNANDEZAT ####[facility] [id number] [place], [place], Disruptive Behavior Progress Noteon 10-18-2024 Business Banking Sales Assistant Authentication Interface Message Text Normal The [facility] ED Noteson 10-18-2024 Business Banking Sales Assistant Authentication Interface Message Text notified of critical LACTATE value of 4.7. Hard copy of results given to . Normal [facility] Business Banking Sales Assistant Authentication Interface Message Text Dr. RESENDEZ notified of critical LACTATE value of 5.3. Hard copy of results given to Dr. RESENDEZ. 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 Interface Message Text Normal [facility] HEPATIC FUNCTION PANELon Albumin [Mass/Vol] 3.3 [...] Albumin [Mass/Vol] 3.3 g/dL Low 3.5-5.7 The [facility] Comment on above: Performed By: #### H EPATIC, MG, PROCAL, CH8 ####[facility] PATHOLOGY [id number] [place], [place], ALK 273 IU/L High 34-104 The [facility] Comment on above: Performed By: #### H EPATIC, MG, PROCAL, CH8 ####[facility] PATHOLOGY [id number] [place], ALT [Catalytic activity/Vol] 25 U/L Normal 7-52 The [facility] Comment on above: Performed By: #### H EPATIC, MG, PROCAL, CH8 ####[facility] PATHOLOGY [id number] [place], AST [Catalytic activity/Vol] 31 U/L Normal 13-39 The [facility] Comment on above: Performed By: #### H EPATIC, MG, PROCAL, CH8 ####[facility] PATHOLOGY [id number] [place], Bilirubin [Mass/Vol] 8.8 mg/dL High 0.3-1.0 The [facility] Comment on above: Performed By: #### H EPATIC, MG, PROCAL, CH8 ####[facility] PATHOLOGY [id number] [place], Bilirubin.direct [Mass/Vol] 4.95 mg/dL High 0.03-0.18 The [facility] Comment on above: Performed By: #### H EPATIC, MG, PROCAL, CH8 ####[facility] PATHOLOGY [id number] [place], [place], Protein [Mass/Vol] 6.2 g/dL Normal 6.0-8.3 The [facility] Comment on above: Performed By: #### H EPATIC, MG, PROCAL, CH8 ####[facility] PATHOLOGY [id number] [place], [place], HIGH SENSITIVITY TROPONIN Io n 10-18-2024 Troponin I.cardiac DL <= 0.01 ng/mL [Mass/Vol] 49 ng/L High NINF - 15 ng/L [facility] LACTATE WITH REPEAT EDOrdere d By: Jose Raul Thakkar on 10-18-2024 Interpretation and review of laboratory results Abnormal [facility] Lactate [Moles/Vol] 5.3 mmol/L Critically high 0.5 - 1.6 mmol/L [facility] This test was developed, and its performance characteristics determined by the Department of Pathology of The [facility]. It has not been cleared or approved by the FDA. This test is used for clinical purposes only. [facility] LACTATE WITH REPEAT EDon CR LACT 5.3 mmol/L Critically high 0.5-1.6 The [facility] Comment on above: Order Comment: This test was developed, and its performance characteristics determined by the Department of Pathology of The [facility]. It has not been cleared or approved by the FDA. This test is used for clinical purposes only. Performed By: #### L ACTREPEAT ####[facility] [id number] [place], [place], LACTIC ACIDOrdered By: Fely Read on 10-18-2024 Interpretation and review of laboratory results Abnormal [facility] Lactate [Moles/Vol] 4.8 mmol/L Critically high 0.5 - 1.6 mmol/L [facility] This test was developed, and its performance characteristics determined by the Department of Pathology of The [facility]. It has not been cleared or approved by the FDA. This test is used for clinical purposes only. [facility] LACTIC ACIDon 10-18-2024 CR LACT 4.8 mmol/L Critically high 0.5-1.6 The [facility] Comment on above: Order Comment: This test was developed, and its performance characteristics determined by the Department of Pathology of The [facility]. It has not been cleared or approved by the FDA. This test is used for clinical purposes only. Performed By: #### L ACT ####S PATHOLOGY [id number] [place], [place], Interpretation and review of laboratory results Abnormal [facility] Lactate [Moles/Vol] 4.7 mmol/L Critically high 0.5 - 1.6 mmol/L [facility] This test was developed, and its performance characteristics determined by the Department of Pathology of The [facility]. It has not been cleared or approved by the FDA. This test is used for clinical purposes only. [facility] CR LACT 4.7 mmol/L Critically high 0.5-1.6 [facility] Comment on above: Order Comment: This test was developed, and its performance characteristics determined by the [facility] of [facility]. It has not been cleared or approved by the FDA. This test is used for clinical purposes only. Performed By: #### L ACT ####[facility] [id number] [place], MAGNESIUMon 10-18-2024 Magnesium [Mass/Vol] 2.9 mg/dL High 1.9 - 2 .7 mg/dL [facility] Magnesium [Mass/Vol] 2.9 mg/dL High 1.9-2.7 [facility] Comment on above: Performed By: #### H EPATIC, MG, PROCAL, CH8 ####[facility] PATHOLOGY [id number] [place], [place], No Panel Informationon 10-18 Interpretation and review of laboratory results Abnormal [facility] PROCALCITONINon 10-18-2024 Interpretation and review of laboratory results Abnormal [facility] Procalcitonin IA [Mass/Vol] 16.82 ng/mL High NINF - 0.50 ng/mL [facility] Comment on above: Procalcitonin Concen trations [...] retest Procalcitonin within 6 to 24 hours. [facility] PROCALCITONIN 16.82 ng/mL High <0.50 [facility] Comment on above: Result Comment: Proc [...] to 24 hours. Performed By: #### H EPATIC, MG, PROCAL, CH8 ####[facility] [id number] [place], [address] Progress Noteson 10-18-2024 Business Banking Sales Assistant Authentication Interface Message Text Normal [facility] Business Banking Sales Assistant Authentication Interface Message Text Normal [facility] Business Banking Sales Assistant Authentication Interface Message Text /GREG Myers notified of critical lactic acid value of 4.8. /GREG Myers read back critical results. New orders received. Normal [facility] Business Banking Sales Assistant Authentication Interface Message Text Normal [facility] RESPIRATORY CULTURE, MISCOrd ered By: Lore Conklin on 10-18-2024 Bacteria identified Respiratory culture Nom (Unsp spec) Squamous Epithelial Cells present. Recommend submission of another specimen. [facility] Interpretation and review of laboratory results Normal [facility] RESPIRATORY CULTURE, MISCon 10-18-2024 RESPIRATORY CULTURE, MISC C RESP: Squamous Epithelial Cells present. Recommend submission of another specimen. Normal [facility] Comment on above: Performed By: #### C RESP ####[facility] [address] [place], [place] Troponin I.cardiac DL <= 0.0 1 ng/mL [Mass/Vol]on 10-18-2024 Interpretation and review of laboratory results Abnormal [facility] Elevated troponin ca n result from [...] within the clinical context using provider judgement. [facility] BASIC METABOLIC PANELon 04-2 0-2024 Anion gap [Moles/Vol] 26 mmol/L High 10-20 [facility] Comment on above: Performed By: #### Nichole Morales CH8 ####S PATHOLOGY [id number] [place], [place], Calcium [Mass/Vol] 8.7 mg/dL Normal 8.6-10.3 [facility] Comment on above: Performed By: ###Gonzalez Morales CH8 ####S PATHOLOGY [id number] [place], [place], Chloride [Moles/Vol] 101 mmol/L Normal 98-107 [facility] Comment on above: Performed By: ##Contreras Morales CH8 ####S PATHOLOGY [id number] [place], [place], CO2 [Moles/Vol] 15 mmol/L Low 21-31 [facility] Comment on above: Performed By: ###Gonzalez Morales CH8 ####S PATHOLOGY [id number] [place], [place], Creatinine [Mass/Vol] 2.80 mg/dL High 0.70-1.30 [facility] Comment on above: Performed By: ###Gonzalez Morales CH8 ####[facility] PATHOLOGY [id number] [place], [place], ESTIMATED GFR (CKD-EPI) 27 mL/min/1.73sqm Low >=60 The [facility] Comment [...] Inclusion of Race in Diagnosing Kidney Disease. Ethiopian Journal of Kidney Diseases 2021;79(2):268-88.e1.2. N Engl J Med 1 Vol. 385 Issue 19 Pages 7917-5458 Performed By: #### Nichole Morales CH8 ####[facility] PATHOLOGY [id number] [place], [place], Glucose [Mass/Vol] 106 mg/dL Normal 74-109 [facility] Comment on above: Performed By: ###Gonzalez Morales CH8 ####[facility] PATHOLOGY [id number] [place], [place], Potassium [Moles/Vol] 4.7 mmol/L Normal 3.5-5.0 [facility] Comment on above: Performed By: ###Gonzalez Morales CH8 ####S PATHOLOGY NTXOZPSUSF7994 [place], [place], Sodium [Moles/Vol] 137 mmol/L Normal 136-145 [facility] Comment on above: Performed By: ###Gonzalez Morales CH8 ####S PATHOLOGY [id number] [place], [place], Urea nitrogen [Mass/Vol] 84 mg/dL High 7-25 [facility] Comment on above: Performed By: ###Gonzalez Morales CH8 ####S PATHOLOGY [id number] [place], [address] Basic metabolic 2000 panelon 10-17-2024 Anion gap [...] Inclusion of Race in Diagnosing Kidney Disease. Ethiopian Journal of Kidney Diseases 2021;79(2):268-88.e1. 2. N Engl J Med 2020 Vol. 385 Issue 19 Pages 2479-5625 Glucose [Mass/Vol] 106 mg/dL 74 - 109 [...] (Bld) [#/Vol] 0.03 10*3/uL Normal 0.00-0.20 [facility] Comment on above: Performed By: #### C BCDSAT ####[facility] PATHOLOGY [id number] [place], [place], Basophils/100 WBC (Bld) 0.3 % Normal <=1.9 [facility] Comment on above: Performed By: #### C BCDSAT ####[facility] PATHOLOGY [id number] [place], Eosinophils (Bld) [#/Vol] 0.00 10*3/uL Normal 0.00-0.70 [facility] Comment on above: Performed By: #### C BCDSAT ####[facility] PATHOLOGY [id number] [place], Eosinophils/100 WBC (Bld) 0.0 % Low 0.1-4.0 [facility] Comment on above: Performed By: #### C BCDSAT ####[facility] PATHOLOGY [id number] [place] [address], Erythrocyte distribution width (RBC) [Ratio] 16.3 % High 11.5-14.5 [facility] Comment on above: Performed By: #### C BCDSAT ####[facility] PATHOLOGY [id number] [place], [place], Hematocrit (Bld) [Volume fraction] 40.2 % Low 41.0-53.0 The [facility] Comment on above: Performed By: #### C BCDSAT ####[facility] PATHOLOGY [id number] [place], Hemoglobin (Bld) [Mass/Vol] 13.6 g/dL Low 13.9-16.3 The [facility] Comment on above: Performed By: #### C BCDSAT ####[facility] PATHOLOGY [id number] [place], Lymphocytes (Bld) [#/Vol] 1.01 10*3/uL Normal 1.00-4.80 [facility] Comment on above: Performed By: #### C BCDSAT ####[facility] PATHOLOGY [id number] [place], Lymphocytes/100 WBC (Bld) 7.8 % Low 24.0-44.0 The [facility] Comment on above: Performed By: #### C MARYAT ####[facility] PATHOLOGY [id number] [place], [place], MCH (RBC) [Entitic mass] 34.9 pg High 26.0-34.0 The [facility] Comment on above: Performed By: #### C MARYAT ####[facility] PATHOLOGY [id number] [place] [address], MCHC (RBC) [Mass/Vol] 33.8 g/dL Normal 32.0-35.9 The [facility] Comment on above: Performed By: #### C MARYAT ####[facility] PATHOLOGY [id number] [place], MCV (RBC) [Entitic vol] 104 fL High 80-100 The [facility] Comment on above: Performed By: #### Kelly HERNANDEZAT ####[facility] PATHOLOGY [id number] [place] [address], MONOCYTE DISTRIBUTION WIDTH 20 Normal <=20 The [facility] Comment on above: Performed By: #### Kelly HERNANDEZAT ####[facility] PATHOLOGY [id number] [place] [address], Monocytes (Bld) [#/Vol] 0.82 10*3/uL Normal 0.20-1.00 The [facility] Comment on above: Performed By: #### Kelly HERNANDEZAT ####[facility] PATHOLOGY [id number] [place] [address], Monocytes/100 WBC (Bld) 6.4 % Normal 2.0-11.0 The [facility] Comment on above: Performed By: #### C MARYAT ####[facility] PATHOLOGY [id number] [place] [address], Neutrophils (Bld) [#/Vol] 10.98 10*3/uL High 1.50-8.00 The [facility] Comment on above: Performed By: #### Kelly HERNANDEZAT ####[facility] PATHOLOGY [id number] [place] [address], Neutrophils/100 WBC (Bld) 85.5 % High 31.0-76.0 The [facility] Comment on above: Performed By: #### C BCDSAT ####[facility] PATHOLOGY [id number] [place], Platelet mean volume (Bld) [Entitic vol] 9.3 fL Normal 7.5-11.2 The [facility] Comment on above: Performed By: #### C GARRETTDSAT ####[facility] PATHOLOGY [id number] [place], Platelets (Bld) [#/Vol] 153 10*3/uL Normal 150-400 [facility] Comment on above: Performed By: #### C GARRETTDSAT ####[facility] PATHOLOGY [id number] [place], RBC (Bld) [#/Vol] 3.88 10*6/uL Low 4.50-5.90 The [facility] Comment on above: Performed By: #### C GARRETTDSAT ####[facility] PATHOLOGY [id number] [place], WBC (Bld) [#/Vol] 12.8 10*3/uL High 4.5-11.5 [facility] Comment on above: Performed By: #### C BCDSAT ####[facility] PATHOLOGY [id number] [place], [place], ED Noteson 10-17-2024 [employer] Sales Assistant Authentication Interface Message Text Delay in antibiotics d/t no IV access Normal The [facility] ED Provider Noteson 10-18-19 [employer] Sales Assistant Authentication Interface Message Text Normal The [facility] [employer] Sales Assistant Authentication Interface Message Text Normal [facility] HIGH SENSITIVITY TROPONIN Io n 10-17-2024 HS TROPONIN I 49 ng/L High <=15 The [facility] Comment on above: Order Comment: Lowell monalisa troponin can result from acute myocardial [...] Performed By: #### H STRP ####[facility] PATH[facility] [id number] [place], [address] Troponin I.cardiac DL <= 0.01 ng/mL [Mass/Vol] 40 ng/L High NINF - 15 ng/L [facility] HS TROPONIN I 40 ng/L High <=15 The [facility] Comment on above: Order Comment: Lowell monalisa troponin can result from acute myocardial [...] Performed By: #### H STRP ####[facility] PATH[facility] [id number] [place], MAGNESIUMon 10-17-2024 Magnesium [Mass/Vol] 2.9 mg/dL High 1.9 - 2 .7 mg/dL [facility] Magnesium [Mass/Vol] 2.9 mg/dL High 1.9-2.7 The [facility] Comment on above: Performed By: #### M G, CH8 ####S PATHOLOGY [id number] [place], [place], NT PRO-BNPon 10-17-2024 Interpretation and review of laboratory results Abnormal [facility] Natriuretic peptide.B prohormone N-Terminal [place] [Mass/Vol] 46969 pg/mL High NINF - 450 pg/mL [facility] Result: <300 pg/mL (All ages). Interpretation: Negative. Heart failure unlikely. Result: 300-450 pg/mL (<50 years), 300-900 pg/mL (50-75 years), 300-1800 pg/mL (>75 years). Interpretation: Indeterminate. Consider other reasons for NT Pro-BNP elevation. Result: >450 pg/mL (<50 years), >900 pg/mL (50-75 years), >1800 pg/mL (>75 years). Interpretation: Positive. Heart failure likely. [facility] Natriuretic peptide B (Bld) [Mass/Vol] 29522 pg/mL High <=450 [facility] Comment on above: Order Comment: Resul t: <300 pg/mL (All ages).Interpretation: Negative. Heart failure unlikely.Result: 300-450 pg/mL (<50 years), 300-900 pg/mL (50-75 years), 300-1800 pg/mL (>75 years).Interpretation: Indeterminate. Consider other reasons for NT Pro-BNP elevation.Result: >450 pg/mL (<50 years), >900 pg/mL (50-75 years), >1800 pg/mL (>75 years).Interpretation: Positive. Heart failure likely. Performed By: #### N T-PROBNP ####S PATHOLOGY [id number] [place] [address], No Panel Informationon 10-17 Interpretation and review of laboratory results Abnormal [facility] PR[facility]OMBIN TIME AND INRon 0 10-17-2024 INR Coag (PPP) [Relative time] 2.14 {INR} High 0.90 - 1.10 [facility] Interpretation and review of laboratory results Abnormal [facility] PT Coag (PPP) [Time] 24 s High [facility] INR Coag (PPP) [Relative time] 2.14 {INR} High 0.90-1.10 The [facility] Comment on above: Performed By: #### P T ####S PATHOLOGY [id number] [place] [address], PT Coag (PPP) [Time] 24.0 s High 9.7-12.9 [facility] Comment on above: Performed By: #### P T ####[facility] PATH[facility] [id number] [place] [address], Troponin I.cardiac DL <= 0.0 1 ng/mL [Mass/Vol]on 10-17-2024 Interpretation and review of laboratory results Abnormal [facility] Elevated troponin ca n result from [...] within the clinical context using provider judgement. [employer] XR CHEST AP OR PA 1 VIEWon 0 10-17-2024 XR CHEST AP OR PA 1 VIEW Normal [facility] XR Chest Single viewon 10-17 EXAMINATION: [...] is recommended to document resolution. MACRO: None [facility] Radiology Study observation (narrative) [facility] XR Chest Single viewOrdered By: Francisca Coronado on 10-17-2024 [facility] Work Phone: COVID/INFLUENZAOrdered By: Jocelyne valadez Cables on 10-13-2024 FLUAV RNA DEENA+probe Ql (Nph) Not detected Not Detected [facility] Comment on above: This assay was perfo rmed using [employer] RTPCR technology. FLUBV RNA DEENA+probe Ql (Nph) Not detected Not Detected [facility] Comment on above: This assay was perfo rmed using [employer] RTPCR technology. Interpretation and review of laboratory results Normal [facility] SARS-CoV-2 (COVID-19) Ab IA Ql Not Detected results are indicative of the absence of SARS-CoV-2 in the specimen submitted for testing. False negative results are possible based on the timing and quality of specimen submitted for testing. [facility] SARS-CoV-2 (COVID-19) RNA DEENA+probe Ql (Unsp spec) Not detected Not Detected [facility] Comment on above: This assay was perfo rmed using [employer] RTPCR technology. [facility] COVID/INFLUENZAon 10-13-2024 INFLUENZA A Not detected Normal Not Detected [facility] Comment on above: Order Comment: Not D etected results are indicative of the absence of SARS-CoV-2 in the specimen submitted for testing. False negative results are possible based on the timing and quality of specimen submitted for testing. Result Comment: This assay was performed using [employer] RTPCR technology. Performed By: #### F CLINT/COVID ####S VELPEN PATHOLOGY [id number] [place] , [id number] INFLUENZA B Not detected Normal Not Detected [facility] Comment on above: Order Comment: Not D etected results are indicative of the absence of SARS-CoV-2 in the specimen submitted for testing. False negative results are possible based on the timing and quality of specimen submitted for testing. Result Comment: This assay was performed using [employer] RT[employer] technology. Performed By: #### F CLINT/COVID ####S [facility]PEN PATHOLOGY [id number] [facility] , [id number] SARS-CoV-2 (COVID-19) RNA DEENA+probe Ql (Unsp spec) Not detected Normal Not Detected [facility] Comment on above: Order Comment: Not D etected results are indicative of the absence of SARS-CoV-2 in the specimen submitted for testing. False negative results are possible based on the timing and quality of specimen submitted for testing. Result Comment: This assay was performed using [employer] RTPCR technology. Performed By: #### F CLINT/COVID ####S VELPEN PATHOLOGY [id number] [facility] , [id number] ED Provider Noteson 10-14-19 [employer] Sales Assistant Authentication Interface Message Text Normal [facility] Telephone Encounteron 2024 Business Banking Sales Assistant Authentication Interface Message Text Normal [facility] [employer]ing Sales Assistant Authentication Interface Message Text Caller transferred to nurse for sx of(buzzword or buzzword situation)was hosptalized for pneumonia and concerned about lingering cough. Normal [facility] XR CHEST PA+LAT 2 VIEWSon XR CHEST PA+LAT 2 VIEWS Normal [facility] XR Chest PA and Lateralon EXAMINATION: [...] No pleural effusion. Stable cardiomegaly. MACRO: None [facility] Radiology Study observation (narrative) [facility] XR Chest PA and LateralOrder ed By: Deena Villeda on 10-13-2024 [facility] Work Phone: Telephone Encounteron 2024 Business Banking Sales Assistant Authentication Interface Message Text Normal [facility] BASIC METABOLIC PANELon Anion gap [Moles/Vol] 15 mmol/L Normal 10-20 [facility] Comment on above: Performed By: #### P HOS, CH8, MG ####[facility] PATH[facility] SSVSTDGEBX3512 [place], [address] Calcium [Mass/Vol] 8.2 mg/dL Low 8.6-10.3 [facility] Comment on above: Performed By: #### P HOS, CH8, MG ####[facility] PATH[facility] [id number] [place], Chloride [Moles/Vol] 96 mmol/L Low 98-107 [facility] Comment on above: Performed By: #### P HOS, CH8, MG ####[facility] PATH[facility]Y YCIKTFTFYW9545 [place], CO2 [Moles/Vol] 27 mmol/L Normal 21-31 [facility] Comment on above: Performed By: #### P HOS, CH8, MG ####[facility] PATH[facility]Y [id number] [place], Creatinine [Mass/Vol] 1.98 mg/dL High 0.70-1.30 [facility] Comment on above: Performed By: #### P HOS, CH8, MG ####[facility] PATH[facility]Y [id number] [place], ESTIMATED GFR (CKD-EPI) 41 mL/min/1.73sqm Low >=60 [facility] Comment on above: Result Comment: 2020 [...] Inclusion of Race in Diagnosing Kidney Disease. Ethiopian Journal of Kidney Diseases 2021;79(2):268-88.e1.2. N Engl J Med 2020 Vol. 385 Issue 19 Pages 6444-2037 Performed By: #### P HOS, CH8, MG ####[facility] PATH[facility] YQDJUWMRSI9772 [place], Glucose [Mass/Vol] 105 mg/dL Normal 74-109 [facility] Comment on above: Performed By: #### P HOS, CH8, MG ####[facility] PATH[facility]Y CNQHBZBSCN2906 [place], [place], Potassium [Moles/Vol] 4.3 mmol/L Normal 3.5-5.0 [facility] Comment on above: Performed By: #### P HOSFERNANDO8, MG ####[facility] PATH[facility]Y [id number] [place], Sodium [Moles/Vol] 134 mmol/L Low 136-145 [facility] Comment on above: Performed By: #### P HOSFERNANDO8, MG ####[facility] PATH[facility]Y OCEAIODJLM9787 [place], Urea nitrogen [Mass/Vol] 52 mg/dL High 7-25 [facility] Comment on above: Performed By: #### P HOS CH8, MG ####[facility] PATH[facility]Y HGLLOLSWJI8072 [place], [place], Basic metabolic 2000 panelon 10-06-2024 Anion gap [Moles/Vol] 15 mmol/L 10 - 20 [facility] [Mass/Vol] 8.2 mg/dL Low 8.6 - [...] Inclusion of Race in Diagnosing Kidney Disease. [place]ian Journal of Kidney Diseases 202;79(2):268-88.e1. 2. N Engl J Med 2020 Vol. 385 Issue 19 Pages 0756-6982 Glucose [Mass/Vol] 105 mg/dL 74 - 109 [...] (Bld) [#/Vol] 0.03 10*3/uL Normal 0.00-0.20 [facility] Comment on above: Performed By: #### C BCDSAT ####S PATHOLOGY UZIWSGLDTG0015 [place], [place], Basophils/100 WBC (Bld) 0.3 % Normal <=1.9 [facility] Comment on above: Performed By: #### C BCDSAT ####[facility] PATHOLOGY SNTYHYIWRL2666 [place], [place], Eosinophils (Bld) [#/Vol] 0.02 10*3/uL Normal 0.00-0.70 [facility] Comment on above: Performed By: #### C BCDSAT ####S PATHOLOGY VVOPVMWEYM7917 [place], Eosinophils/100 WBC (Bld) 0.2 % Normal 0.1-4.0 [facility] Comment on above: Performed By: #### C BCDSAT ####S PATHOLOGY YFILGZAILF3968 [place], Erythrocyte distribution width (RBC) [Ratio] 15.1 % High 11.5-14.5 [facility] Comment on above: Performed By: #### C BCDSAT ####S PATHOLOGY ADGVAAWQDJ3167 [place], Hematocrit (Bld) [Volume fraction] 40.8 % Low 41.0-53.0 [facility] Comment on above: Performed By: #### C BCDSAT ####[facility] PATH[facility] [id number] [place], Hemoglobin (Bld) [Mass/Vol] 13.8 g/dL Low 13.9-16.3 [facility] Comment on above: Performed By: #### C BCDSAT ####[facility] PATHOLOGY [id number] [place], Lymphocytes (Bld) [#/Vol] 2.34 10*3/uL Normal 1.00-4.80 [facility] Comment on above: Performed By: #### C BCDSAT ####[facility] PATHOLOGY HUUNACGUVV5387 [place], Lymphocytes/100 WBC (Bld) 28.5 % Normal 24.0-44.0 [facility] Comment on above: Performed By: #### C BCDSAT ####[facility] PATHOLOGY PYEEUOLMAL2790 [place], MCH (RBC) [Entitic mass] 34.6 pg High 26.0-34.0 [facility] Comment on above: Performed By: #### C BCDSAT ####[facility] PATHOLOGY [id number] [place], MCHC (RBC) [Mass/Vol] 33.9 g/dL Normal 32.0-35.9 [facility] Comment on above: Performed By: #### C BCDSAT ####[facility] PATHOLOGY [id number] [place], MCV (RBC) [Entitic vol] 102 fL High 80-100 [facility] Comment on above: Performed By: #### C BCDSAT ####[facility] PATHOLOGY [id number] [place], Monocytes (Bld) [#/Vol] 0.72 10*3/uL Normal 0.20-1.00 [facility] Comment on above: Performed By: #### C BCDSAT ####[facility] PATHOLOGY TMYSRQQBBR3665 [place], Monocytes/100 WBC (Bld) 8.7 % Normal 2.0-11.0 [facility] Comment on above: Performed By: #### C BCDSAT ####[facility] PATHOLOGY [id number] [place], Neutrophils (Bld) [#/Vol] 5.11 10*3/uL Normal 1.50-8.00 [facility] Comment on above: Performed By: #### C BCDSAT ####[facility] PATHOLOGY [id number] [place], Neutrophils/100 WBC (Bld) 62.3 % Normal 31.0-76.0 [facility] Comment on above: Performed By: #### C BCDSAT ####[facility] PATHOLOGY [id number] [place], Platelet mean volume (Bld) [Entitic vol] 8.5 fL Normal 7.5-11.2 [facility] Comment on above: Performed By: #### C GARRETTDSAT ####[facility] PATHOLOGY [id number] [place] [address], Platelets (Bld) [#/Vol] 206 10*3/uL Normal 150-400 [facility] Comment on above: Performed By: #### C BCDSAT ####[facility] PATHOLOGY [id number] [place], RBC (Bld) [#/Vol] 4.00 10*6/uL Low 4.50-5.90 [facility] Comment on above: Performed By: #### C BCDSAT ####[facility] PATHOLOGY [id number] [place], WBC (Bld) [#/Vol] 8.2 10*3/uL Normal 4.5-11.5 [facility] Comment on above: Performed By: #### C BCDSAT ####S PATHOLOGY YGIGRJYQPZ2704 [place], LACTIC ACIDOrdered By: Connor Delacruz on 10-06-2024 Interpretation and review of laboratory results Abnormal [facility] Lactate [Moles/Vol] 2.4 mmol/L High 0.5 - 1. 6 mmol/L [facility] This test was developed, and its performance characteristics determined by the Department of Pathology of The [facility]. It has not been cleared or approved by the FDA. This test is used for clinical purposes only. [facility] LACTIC ACIDon 10-06-2024 CR LACT 2.4 mmol/L High 0.5-1.6 [facility] Comment on above: Order Comment: This test was developed, and its performance characteristics determined by the Department of Pathology of The [facility]. It has not been cleared or approved by the FDA. This test is used for clinical purposes only. Performed By: #### L ACT ####[facility] PATH[facility] [id number] [place], MAGNESIUMon 10-06-2024 Magnesium [Mass/Vol] 2.1 mg/dL 1.9 - 2 .7 mg/dL [facility] Magnesium [Mass/Vol] 2.1 mg/dL Normal 1.9-2.7 [facility] Comment on above: Performed By: #### P AUGUSTO MIKE, MG ####[facility] PATH[facility] [id number] [place], [place], No Panel Informationon 10-06 Interpretation and review of laboratory results Normal [facility] PHOSPHORUSon 10-06-2024 Phosphate [Mass/Vol] 3.3 mg/dL 2.5 - 5 .0 mg/dL [facility] Phosphate [Mass/Vol] 3.3 mg/dL Normal 2.5-5.0 [facility] Comment on above: Performed By: #### P FERNANDO MIKE8, MG ####[facility] [id number] [place], [place], Progress Noteson 10-06-2024 Business Banking Sales Assistant Authentication Interface Message Text 10/06/2024 - Patient given AM medications. Patient spit out medications. Patient states that he has bad kidneys and medications make him sick. This RN educated on the importance of the medication. notified. Normal [facility] Business Banking Sales Assistant Authentication Interface Message Text Normal [facility] Business Banking Sales Assistant Authentication Interface Message Text Normal [facility] BASIC METABOLIC PANELon - Anion gap [Moles/Vol] 19 mmol/L Normal 10-20 [facility] Comment on above: Performed By: #### C H8, PHOS, MG ####[facility] [id number] [place], [place], Calcium [Mass/Vol] 8.1 mg/dL Low 8.6-10.3 [facility] Comment on above: Performed By: #### C H8, PHOS, MG ####[facility] [id number] [place], [place], Chloride [Moles/Vol] 97 mmol/L Low 98-107 [facility] Comment on above: Performed By: #### C H8, PHOS, MG ####[facility] [id number] [place], [place], CO2 [Moles/Vol] 23 mmol/L Normal 21-31 [facility] Comment on above: Performed By: #### C H8, PHOS, MG ####[facility] [id number] [place], [place], Creatinine [Mass/Vol] 2.18 mg/dL High 0.70-1.30 [facility] Comment on above: Performed By: #### C H8, PHOS, MG ####[facility] [id number] [place], [place], ESTIMATED GFR (CKD-EPI) 37 mL/min/1.73sqm Low >=60 [facility] Comment on above: Result Comment: 2020 [...] Inclusion of Race in Diagnosing Kidney Disease. Ethiopian Journal of Kidney Diseases 2021;79(2):268-88.e1.2. N Engl J Med 2020 Vol. 385 Issue 19 Pages [phone] Performed By: #### C H8, PHOS, MG ####[facility] [id number] [place], [place], Glucose [Mass/Vol] 124 mg/dL High 74-109 [facility] Comment on above: Performed By: #### ASHLEIGH Short MG ####[facility] [id number] [place], [place], Potassium [Moles/Vol] 4.8 mmol/L Normal 3.5-5.0 [facility] Comment on above: Performed By: #### ASHLEIGH Short MG ####[facility] [id number] [place], Sodium [Moles/Vol] 134 mmol/L Low 136-145 [facility] Comment on above: Performed By: #### ASHLEIGH Short MG ####[facility] [id number] [place], [place], Urea nitrogen [Mass/Vol] 51 mg/dL High 7-25 [facility] Comment on above: Performed By: #### ASHLEIGH Short MG ####[facility] [id number] [place], [place], Basic metabolic 2000 panelon 10-05-2024 Anion gap [Moles/Vol] 19 mmol/L 10 - 20 [facility] Cal[facility] [Mass/Vol] 8.1 mg/dL Low 8.6 - [...] Inclusion of Race in Diagnosing Kidney Disease. Ethiopian Journal of Kidney Diseases 2021;79(2):268-88.e1. 2. N Engl J Med 1 Vol. 385 Issue 19 Pages 7662-2894 Glucose [Mass/Vol] 124 mg/dL High 74 - [...] (RBC) [Ratio] 15.2 % High 11.5-14.5 The [facility] Comment on above: Performed By: #### C GILBERTO GRANGER ####[facility] [id number] [place] [address], [place], Hematocrit (Bld) [Volume fraction] 39.7 % Low 41.0-53.0 [facility] Comment on above: Performed By: ###GILBERTO COLLADO ####[facility] [id number] [place], [place], Hemoglobin (Bld) [Mass/Vol] 13.3 g/dL Low 13.9-16.3 The [facility] Comment on above: Performed By: #### GILBERTO JARRETT ####[facility] PATHOLOGY [id number] [place], [place], MCH (RBC) [Entitic mass] 34.7 pg High 26.0-34.0 The [facility] Comment on above: Performed By: #### GILBERTO JARRETT ####[facility] PATHOLOGY [id number] [place], MCHC (RBC) [Mass/Vol] 33.4 g/dL Normal 32.0-35.9 The [facility] Comment on above: Performed By: ###GILBERTO COLLADO ####[facility] PATHOLOGY [id number] [place], MCV (RBC) [Entitic vol] 104 fL High 80-100 The [facility] Comment on above: Performed By: ###GILBERTO COLLADO ####[facility] PATHOLOGY [id number] [place], [place], Platelet mean volume (Bld) [Entitic vol] 8.2 fL Normal 7.5-11.2 The [facility] Comment on above: Performed By: ###GILBERTO COLLADO ####[facility] PATHOLOGY [id number] [place], [place], Platelets (Bld) [#/Vol] 195 10*3/uL Normal 150-400 The [facility] Comment on above: Performed By: #### GILBERTO JARRETT ####[facility] [id number] [place], [place], RBC (Bld) [#/Vol] 3.83 10*6/uL Low 4.50-5.90 The [facility] Comment on above: Performed By: #### C GILBERTO GRANGER ####[facility] PATHOLOGY [id number] [place], [place], WBC (Bld) [#/Vol] 9.2 10*3/uL Normal 4.5-11.5 The [facility] Comment on above: Performed By: #### C MD BÁRBARAIFF ####[facility] PATHOLOGY [id number] [place], [place], Consultson 10-05-2024 Business Banking Sales Assistant Authentication Interface Message Text Normal The [facility] LACTIC ACIDOrdered By: Daniel Vera on 10-05-2024 Interpretation and review of laboratory results Abnormal [facility] Lactate [Moles/Vol] 3.5 mmol/L Critically high 0.5 - 1.6 mmol/L [facility] This test was developed, and its performance characteristics determined by the Department of Pathology of The [facility]. It has not been cleared or approved by the FDA. This test is used for clinical purposes only. [facility] LACTIC ACIDon 10-05-2024 CR LACT 3.5 mmol/L Critically high 0.5-1.6 The [facility] Comment on above: Order Comment: This test was developed, and its performance characteristics determined by the Department of Pathology of The [facility]. It has not been cleared or approved by the FDA. This test is used for clinical purposes only. Performed By: #### L ACT ####[facility] PATHOLOGY [id number] [place], [place], Laboratory - Microbiology an d Antimicrobial susceptibilityon 10-05-2024 Bacteria identified Cx Nom (Bld) No Growth [facility] MAGNESIUMon 10-05-2024 Magnesium [Mass/Vol] 2.1 mg/dL 1.9 - 2 .7 mg/dL [facility] Magnesium [Mass/Vol] 2.1 mg/dL Normal 1.9-2.7 The [facility] Comment on above: Performed By: #### C H8, PHOS, MG ####[facility] PATHOLOGY [id number] [place], [place], MANUAL DIFF AND MORPHon 04-0 Patsy cells LM Ql (Bld) Few Me [...] Few [facility] PATSY CELLS Few Normal [facility] Comment on above: Performed By: #### GILBERTO JARRETT ####[facility] [id number] [place], [place], CELLS COUNTED TOTAL # IN BLOOD 100 Normal The [facility] Comment on above: Performed By: #### GILBERTO JARRETT ####S PATHOLOGY [id number] [place], [place], FRAGMENTED RBC Few Normal The [facility] Comment on above: Performed By: #### GILBERTO JARRETT ####[facility] [id number] [place], LYMPHOCYTES % BY MANUAL COUNT 17.0 % Low 24.0-44.0 The [facility] Comment on above: Performed By: #### GILBERTO JARRETT ####S PATHOLOGY [id number] [place], LYMPHOCYTES ABS BY MANUAL COUNT 1.56 K/uL Normal 1.00-4.80 The [facility] Comment on above: Performed By: #### GILBERTO JARRETT ####S PATHOLOGY [id number] [place], MACROCYTOSIS Slight Normal [facility] Comment on above: Performed By: #### GILBERTO JARRETT ####S PATHOLOGY [id number] [place], MONOCYTES % BY MANUAL COUNT 7.0 % Normal 2.0-11.0 [facility] Comment on above: Performed By: #### GILBERTO JARRETT ####S PATHOLOGY [id number] [place], MONOCYTES ABS BY MANUAL COUNT 0.64 K/uL Normal 0.20-1.00 [facility] Comment on above: Performed By: #### GILBERTO JARRETT ####S PATHOLOGY [id number] [place], NEUTROPHILS % BY MANUAL COUNT 76.0 % Normal 31.0-76.0 The [facility] Comment on above: Performed By: ###GILBERTO COLLADO ####S PATHOLOGY [id number] [place], NEUTROPHILS ABS BY MANUAL COUNT 6.99 K/uL Normal 1.50-8.00 The [facility] Comment on above: Performed By: ###GILBERTO COLLADO ####S PATHOLOGY [id number] [place], OVALOCYTES Few Normal The [facility] Comment on above: Performed By: ###GILBERTO COLLADO ####S PATHOLOGY [id number] [place], POLYCHROMASIA Slight Normal [facility] Comment on above: Performed By: ###GILBERTO COLLADO ####S PATHOLOGY [id number] [place], TEARDROP CELLS Few Normal [facility] Comment on above: Performed By: ###GILBERTO COLLADO ####S PATHOLOGY [id number] [place], [place], No Panel Informationon 10-05 Interpretation and review of laboratory results Normal [facility] Interpretation and review of laboratory results Abnormal [facility] Interpretation and review of laboratory results Normal [facility] PARTIAL THROMBOPLASTIN TIMEo n 10-05-2024 aPTT Coag (Bld) [Time] 30 s [facility] Interpretation and review of laboratory results Normal [facility] aPTT Coag (Bld) [Time] 30 s Normal 25-37 Th e [facility] Comment on above: Performed By: #### A PTT ####[facility] PATH[facility] [id number] [place], PHOSPHORUSon 10-05-2024 Phosphate [Mass/Vol] 3.9 mg/dL 2.5 - 5 .0 mg/dL [facility] Phosphate [Mass/Vol] 3.9 mg/dL Normal 2.5-5.0 The [facility] Comment on above: Performed By: #### C H8, PHOS, MG ####[facility] PATH[facility] [id number] [place], [place], Progress Noteson 10-05-2024 Business Banking Sales Assistant Authentication Interface Message Text Report received from amirah evans. Care assumed att Normal [facility] Business Banking Sales Assistant Authentication Interface Message Text Normal [facility] Business Banking Sales Assistant Authentication Interface Message Text Normal [facility] Business Banking Sales Assistant Authentication Interface Message Text /GREG PALACIOS notified of critical Lactate value of 3.5. /GREG PALACIOS read back critical results. New orders not received. Normal [facility] Business Banking Sales Assistant Authentication Interface Message Text Patient refuses labs this morning. aware Normal [facility] Progress Notes - NoteWritero n 10-05-2024 Business Banking Sales Assistant Authentication Interface Message Text Normal [facility] Discharge Planning Noteon Business Banking Sales Assistant Authentication Interface Message Text Normal [facility] Disruptive Behavior Progress Noteon 10-04-2024 Business Banking Sales Assistant Authentication Interface Message Text Normal [facility] Progress Noteson 10-04-2024 Business Banking Sales Assistant Authentication Interface Message Text Normal [facility] Business Banking Sales Assistant Authentication Interface Message Text Normal [facility] Business Banking Sales Assistant Authentication Interface Message Text Normal [facility] Progress Notes - NoteWritero n 10-04-2024 Business Banking Sales Assistant Authentication Interface Message Text 12:30 AM Patient refusing labs at this time Normal [facility] Transfer Noteon 10-04-2024 Business Banking Sales Assistant Authentication Interface Message Text Normal [facility] Consultson 10-03-2024 Business Banking Sales Assistant Authentication Interface Message Text Normal [facility] Business Banking Sales Assistant Authentication Interface Message Text Normal [facility] Disruptive Behavior Progress Noteon 10-03-2024 Business Banking Sales Assistant Authentication Interface Message Text Normal [facility] Business Banking Sales Assistant Authentication Interface Message Text Normal [facility] Business Banking Sales Assistant Authentication Interface Message Text Normal [facility] Business Banking Sales Assistant Authentication Interface Message Text Normal [facility] Progress Noteson 10-03-2024 Business Banking Sales Assistant Authentication Interface Message Text Normal [facility] Progress Notes - NoteWritero n 10-03-2024 Business Banking Sales Assistant Authentication Interface Message Text 12:58 AM Unable to obtain lab work due to lack of access, patient is difficult stick and refusing peripheral sticks. Normal [facility] BASIC METABOLIC PANELon Anion gap [Moles/Vol] 17 mmol/L Normal 10-20 [facility] Comment on above: Performed By: #### ASHLEIGH Arauz CH8 ####S PATHOLOGY [id number] [place], Calcium [Mass/Vol] 8.2 mg/dL Low 8.6-10.3 [facility] Comment on above: Performed By: ###ASHLEIGH Goldstein CH8 ####[facility] PATH[facility] [id number] [place], Chloride [Moles/Vol] 100 mmol/L Normal 98-107 [facility] Comment on above: Performed By: #### ASHLEIGH Arauz CH8 ####S PATHOLOGY [id number] [place], CO2 [Moles/Vol] 21 mmol/L Normal 21-31 [facility] Comment on above: Performed By: #### ASHLEIGH Arauz CH8 ####[facility] PATHOLOGY [id number] [place], Creatinine [Mass/Vol] 2.51 mg/dL High 0.70-1.30 [facility] Comment on above: Performed By: #### ASHLEIGH Arauz CH8 ####[facility] [id number] [place], ESTIMATED GFR (CKD-EPI) 31 mL/min/1.73sqm Low >=60 The [facility] Comment on above: Result Comment: [...] Inclusion of Race in Diagnosing Kidney Disease. Ethiopian Journal of Kidney Diseases 202;79(2):268-88.e1.2. N Engl J Med 2020 Vol. 385 Issue 19 Pages [phone] Performed By: #### ASHLEIGH Arauz CH8 ####[facility] [id number] [place], Glucose [Mass/Vol] 182 mg/dL High 74-109 [facility] Comment on above: Performed By: #### ASHLEIGH Arauz CH8 ####[facility] PATH[facility] [id number] [place], Potassium [Moles/Vol] 4.1 mmol/L Normal 3.5-5.0 [facility] Comment on above: Performed By: #### ASHLEIGH Arauz CH8 ####[facility] PATH[facility] [id number] [place], Sodium [Moles/Vol] 134 mmol/L Low 136-145 The [facility] Comment on above: Performed By: #### ASHLEIGH Arauz CH8 ####[facility] PATH[facility] [id number] [place], Urea nitrogen [Mass/Vol] 45 mg/dL High 7-25 The [facility] Comment on above: Performed By: #### ASHLEIGH Arauz CH8 ####[facility] PATH[facility] [id number] [place], [place], Basic metabolic 2000 panelon 10-02-2024 Anion [...] Inclusion of Race in Diagnosing Kidney Disease. [place]ian Journal of Kidney Diseases 202;79(2):268-88.e1. 2. N Engl J Med 1 Vol. 385 Issue 19 Pages [phone] Glucose [Mass/Vol] 182 mg/dL High 74 - [...] 34.5 pg High 26.0 - 34.0 pg [facility] MCHC (RBC) [Mass/Vol] 33.7 g/dL 32.0 - 35.9 g/dL [facility] MCV (RBC) [Entitic vol] 102 fL High 80 - 100 fL [facility] Platelet mean volume (Bld) [Entitic vol] 8.2 fL 7.5 - 11.2 fL [facility] Platelets (Bld) [#/Vol] 212 10*3/uL 150 - 400 K/uL [facility] RBC (Bld) [#/Vol] 3.82 10*6/uL Low [facility] WBC (Bld) [#/Vol] 12.4 10*3/uL High 4.5 - 11.5 K/uL [facility] COMPLETE BLOOD COUNTon 10-02 Erythrocyte distribution width (RBC) [Ratio] 14.5 % Normal 11.5-14.5 The [facility] Comment on above: Performed By: #### C BC ####[facility] PATHOLOGY [id number] [place] [address], Hematocrit (Bld) [Volume fraction] 39.1 % Low 41.0-53.0 The [facility] Comment on above: Performed By: #### C BC ####[facility] PATHOLOGY [id number] [place] [address], Hemoglobin (Bld) [Mass/Vol] 13.2 g/dL Low 13.9-16.3 The [facility] Comment on above: Performed By: #### C BC ####S PATHOLOGY [id number] [place], MCH (RBC) [Entitic mass] 34.5 pg High 26.0-34.0 The [facility] Comment on above: Performed By: #### C BC ####S PATHOLOGY ZASGUDYKRU7591 [place], MCHC (RBC) [Mass/Vol] 33.7 g/dL Normal 32.0-35.9 The [facility] Comment on above: Performed By: #### C BC ####S PATHOLOGY [id number] [place], MCV (RBC) [Entitic vol] 102 fL High 80-100 The [facility] Comment on above: Performed By: #### C BC ####S PATHOLOGY [id number] [place], Platelet mean volume (Bld) [Entitic vol] 8.2 fL Normal 7.5-11.2 The [facility] Comment on above: Performed By: #### C BC ####[facility] PATHOLOGY [id number] [place], Platelets (Bld) [#/Vol] 212 10*3/uL Normal 150-400 The [facility] Comment on above: Performed By: #### C BC ####[facility] PATHOLOGY [id number] [place], RBC (Bld) [#/Vol] 3.82 10*6/uL Low 4.50-5.90 The [facility] Comment on above: Performed By: #### C BC ####[facility] PATHOLOGY [id number] [place], WBC (Bld) [#/Vol] 12.4 10*3/uL High 4.5-11.5 The [facility] Comment on above: Performed By: #### C BC ####[facility] PATHOLOGY [id number] [place], [place], Consultson 10-02-2024 Business Banking Sales Assistant Authentication Interface Message Text Normal [facility] Business Banking Sales Assistant Authentication Interface Message Text Normal [facility] Diabetes tracking panelOrder ed By: Arvind Smith on 10-02-2024 Average glucose Estimated from glycated hemoglobin (Bld) [Mass/Vol] 128 mg/dL [facility] HbA1c (Bld) [Mass fraction] 6.1 % High 4.0 - 5.6 % [facility] Interpretation and review of laboratory results Abnormal [facility] Disruptive Behavior Progress Noteon 10-02-2024 Business Banking Sales Assistant Authentication Interface Message Text Normal The [facility] Business Banking Sales Assistant Authentication Interface Message Text Normal [facility] Business Banking Sales Assistant Authentication Interface Message Text Normal [facility] Business Banking Sales Assistant Authentication Interface Message Text Normal [facility] Business Banking Sales Assistant Authentication Interface Message Text Normal The [facility] EKG 12 LEAD - PERFORMon 04-0 5-2025 Diagnosis Poor data quality, interpretation may be adversely affected Sinus tachycardia Nonspecific intraventricular block Abnormal ECG When compared with ECG of 06-SEP-2024 15:21, change in axis- possible lead placement abnormality Confirmed by Juan BAKER KATHLEEN ([id number]) on 10/02/2024 11:02:35 AM [facility] P wave Atrium by EKG 112 BPM Met[facility] P wave axis 79 degrees [facility] P-R Interval 142 ms [facility] Q-T interval 382 ms [facility] Q-T interval corrected 521 ms [facility] QRS axis 218 degrees [facility] QRS duration 152 ms [facility] T wave axis -58 degrees [facility] LACTIC ACIDOrdered By: Megan Mcgill on 10-02-2024 Interpretation and review of laboratory results Abnormal [facility] Lactate [Moles/Vol] 2 mmol/L High 0.5 - 1. 6 mmol/L [facility] This test was developed, and its performance characteristics determined by the Department of Pathology of The [facility]. It has not been cleared or approved by the FDA. This test is used for clinical purposes only. [facility] LACTIC ACIDon 10-02-2024 CR LACT 2.0 mmol/L High 0.5-1.6 The [facility] Comment on above: Order Comment: This test was developed, and its performance characteristics determined by the Department of Pathology of The [facility]. It has not been cleared or approved by the FDA. This test is used for clinical purposes only. Performed By: #### L ACT ####[facility] [id number] [place], [place], MAGNESIUMon 10-02-2024 Magnesium [Mass/Vol] 1.9 mg/dL 1.9 - 2 .7 mg/dL [facility] Magnesium [Mass/Vol] 1.9 mg/dL Normal 1.9-2.7 The [facility] Comment on above: Performed By: #### M ASHLEIGH Morales CH8 ####[facility] PATHOLOG[facility] [id number] [place], [place], No Panel Informationon 10-02 Interpretation and review of laboratory results Normal [facility] PARTIAL THROMBOPLASTIN TIMEo n 10-02-2024 aPTT Coag (Bld) [Time] 28 s [facility] Interpretation and review of laboratory results Normal [facility] aPTT Coag (Bld) [Time] 28 s Normal 25-37 Th e [facility] Comment on above: Performed By: #### A PTT ####[facility] PATHOLOGY [id number] [place], PHOSPHORUSon 10-02-2024 Phosphate [Mass/Vol] 4.2 mg/dL 2.5 - 5 .0 mg/dL [facility] Phosphate [Mass/Vol] 4.2 mg/dL Normal 2.5-5.0 The [facility] Comment on above: Performed By: #### M ASHLEIGH Morales CH8 ####[facility] [id number] [place], [place], Procedureson 10-02-2024 Business Banking Sales Assistant Authentication Interface Message Text Normal [facility] Progress Noteson 10-02-2024 Business Banking Sales Assistant Authentication Interface Message Text Normal [facility] Business Banking Sales Assistant Authentication Interface Message Text Normal The [facility] Business Banking Sales Assistant Authentication Interface Message Text Patient refusing to be hooked to any IV medications. Physicians made aware of patient's refusal. (Heparin and IV ABX) Normal [facility] Business Banking Sales Assistant Authentication Interface Message Text Patient unhooked self from monitor for bathroom. Is unmonitored at this time until he is out of bathroom Normal [facility] XR CHEST AP OR PA 1 VIEWon 0 10-02-2024 XR CHEST AP OR PA 1 VIEW Normal [facility] [facility] XR CHEST AP OR PA 1 VIEW Normal [facility] Chest Single viewon 10-02 EXAMINATION: [...] images and agree with the resident's interpretation. [facility] Sammi Brothers MD - 10/02/2024 EXAMINATION: [...] Continued follow-up exam is recommended. MACRO: None [facility] Radiology Study observation (narrative) [facility] XR Chest Single viewOrdered By: Francisca Coronado on 10-02-2024 [facility] Work Phone: XR Chest Single viewOrdered By: Sammi Brothers on 10-02-2024 [facility] Work Phone: BASIC METABOLIC PANELon 04-0 Anion gap [Moles/Vol] 19 mmol/L Normal 10-20 [facility] Comment on above: Performed By: #### C H8, HDL, MG, PHOS ####[facility] [id number] [place], [address] Calcium [Mass/Vol] 8.4 mg/dL Low 8.6-10.3 The [facility] Comment on above: Performed By: #### C H8, HDL, MG, PHOS ####[facility] [id number] [place], [address] Chloride [Moles/Vol] 104 mmol/L Normal 98-107 [facility] Comment on above: Performed By: #### C H8, HDL, MG, PHOS ####[facility] [id number] [place], [place], CO2 [Moles/Vol] 20 mmol/L Low 21-31 [facility] Comment on above: Performed By: #### C H8, HDL, MG, PHOS ####[facility] YUPAYXSESV2909 [place], Creatinine [Mass/Vol] 2.33 mg/dL High 0.70-1.30 [facility] Comment on above: Performed By: #### C H8, HDL, MG, PHOS ####[facility] [id number] [place], ESTIMATED GFR (CKD-EPI) 34 mL/min/1.73sqm Low >=60 [facility] Comment on above: Result Comment: 2020 [...] Inclusion of Race in Diagnosing Kidney Disease. Ethiopian Journal of Kidney Diseases 2021;79(2):268-88.e1.2. N Engl J Med 2020 Vol. 385 Issue 19 Pages 6776-8006 Performed By: #### C H8, HDL, MG, PHOS ####[facility] [id number] [place], [place], Glucose [Mass/Vol] 151 mg/dL High 74-109 The [facility] Comment on above: Performed By: #### C H8, HDL, MG, PHOS ####[facility] UTULIFWKYR9019 [place], Potassium [Moles/Vol] 4.5 mmol/L Normal 3.5-5.0 [facility] Comment on above: Performed By: #### C H8, HDL, MG, PHOS ####[facility] FHIYAZUTXG5477 [place], Sodium [Moles/Vol] 138 mmol/L Normal 136-145 The [facility] Comment on above: Performed By: #### C H8, HDL, MG, PHOS ####[facility] RWDROJMQBJ4412 [place], Urea nitrogen [Mass/Vol] 41 mg/dL High 7-25 [facility] Comment on above: Performed By: #### C H8, HDL, MG, PHOS ####[facility] NJISTQCSFW9412 [place], [place], Basic metabolic 2000 panelon 10-01-2024 Anion [...] Inclusion of Race in Diagnosing Kidney Disease. Ethiopian Journal of Kidney Diseases 202;79(2):268-88.e1. 2. N Engl J Med 1 Vol. 385 Issue 19 Pages 0518-0629 Glucose [Mass/Vol] 151 mg/dL High 74 - [...] (RBC) [Ratio] 14.9 % High 11.5-14.5 The [facility] Comment on above: Performed By: ###GILBERTO COLLADO ####[facility] PATHOLOGY [id number] [place] [address], #### HB A1C ####[facility] [address] [place], [place], Hematocrit (Bld) [Volume fraction] 42.8 % Normal 41.0-53.0 The [facility] Comment on above: Performed By: ###GILBERTO COLLADO ####S PATHOLOGY [id number] [place] [address], #### HB A1C ####[facility] [address], [place], Hemoglobin (Bld) [Mass/Vol] 14.2 g/dL Normal 13.9-16.3 The [facility] Comment on above: Performed By: #### GILBERTO JARRETT ####[facility] PATHOLOGY [id number] [place] [address], #### HB A1C ####[facility] [address] [place] [address], MCH (RBC) [Entitic mass] 34.6 pg High 26.0-34.0 The [facility] Comment on above: Performed By: #### GILBERTO JARRETT ####[facility] PATHOLOGY [id number] [place] [address], #### HB A1C ####[facility] [address] [place] [address], MCHC (RBC) [Mass/Vol] 33.2 g/dL Normal 32.0-35.9 The [facility] Comment on above: Performed By: #### GILBERTO JARRETT ####[facility] PATHOLOGY [id number] [place] [address], #### HB A1C ####[facility] [address] [place] [address], MCV (RBC) [Entitic vol] 104 fL High 80-100 The [facility] Comment on above: Performed By: #### GILBERTO JARRETT ####[facility] PATHOLOGY [id number] [place] [address], #### HB A1C ####[facility] [address] [place] [address], Platelet mean volume (Bld) [Entitic vol] 8.5 fL Normal 7.5-11.2 The [facility] Comment on above: Performed By: #### GILBERTO JARRETT ####[facility] PATHOLOGY [id number] [place] [address], #### HB A1C ####[facility] [address] [place] [address], Platelets (Bld) [#/Vol] 227 10*3/uL Normal 150-400 The [facility] Comment on above: Performed By: #### GILBERTO JARRETT ####[facility] PATHOLOGY [id number] [place], [place], #### HB A1C ####[facility] [address] [place], [address] RBC (Bld) [#/Vol] 4.11 10*6/uL Low 4.50-5.90 The [facility] Comment on above: Performed By: #### GILBERTO JARRETT ####[facility] PATHOLOGY [id number] [place] [address], #### HB A1C ####[facility] [address], WBC (Bld) [#/Vol] 10.9 10*3/uL Normal 4.5-11.5 The [facility] Comment on above: Performed By: #### GILBERTO JARRETT ####[facility] PATHOLOGY [id number] [place] [address], #### HB A1C ####[facility] [address] [place], [address] FULL LIPID PROFILEon 025 Cholesterol [Mass/Vol] 152 mg/dL Normal <200 [facility] Comment on above: Result Comment: Michaela rable: < 200 mg/dLBorderline High: 200-239 mg/dLHigh: > = 240 mg/dL Performed By: #### Kelly H8, HDL, MG, PHOS ####[facility] PATHOLOGY [id number] [place], Cholesterol in LDL [Mass/Vol] 127 mg/dL High <100 The [facility] Comment on above: Performed By: #### Kelly HGissel, HDL, MG, PHOS ####[facility] PATHOLOGY [id number] [place], Cholesterol.total/Chol esterol in HDL [Mass ratio] 9.50 {ratio} High <5.00 The [facility] Comment on above: Performed By: #### Kelly H8, HDL, MG, PHOS ####[facility] IYROVACTWN3692 [place], HDL CHOL 16 mg/dL Low >40 The [facility] Comment on above: Performed By: #### Kelly H8, HDL, MG, PHOS ####S PATHOLOGY RSUHNHDYSW0084 [place], LDL/HDL 7.94 High <3.57 The [facility] Comment on above: Performed By: #### Kelly Simon, HDL, MG, PHOS ####S PATHOLOGY FUFKQJQKZU9295 [place], NON-HDL CHOLESTEROL 136 mg/dL High <130 The [facility] Comment on above: Performed By: #### Kelly Simon, HDL, MG, PHOS ####[facility] PATHOLOGY [id number] [place], Triglyceride [Mass/Vol] 66 mg/dL Normal <150 The [facility] Comment on above: Result Comment: Norm al: < 150 mg/dLBorderline High: 150-199 mg/dLHigh: 200-499 mg/dLVery High: > = 500 mg/dL Performed By: #### Kelly H8, HDL, MG, PHOS ####[facility] PATHOLOGY [id number] [place] [address], H AND Timo 10-01-2024 [employer] Sales Assistant Authentication Interface Message Text Normal The [facility] HEMOGLOBIN A1Con 10-01-2024 Glucose [Mass/Vol] 128 mg/dL Normal The [facility] Comment on above: Performed By: #### GILBERTO JARRETT ####[facility] PATHOLOGY [id number] [place], [place], #### HB A1C ####[facility] [address] [place], [address] HbA1c (Bld) [Mass fraction] 6.1 % High 4.0-5.6 The [facility] Comment on above: Performed By: #### GILBERTO JARRETT ####[facility] PATHOLOGY [id number] [place] [address], #### HB A1C ####[facility] [address] [place], [address] LACTIC ACIDOrdered By: Laura Michaud on 10-01-2024 Interpretation and review of laboratory results Abnormal [facility] Lactate [Moles/Vol] 5 mmol/L Critically high 0.5 - 1.6 mmol/L [facility] This test was developed, and its performance characteristics determined by the Department of Pathology of The [facility]. It has not been cleared or approved by the FDA. This test is used for clinical purposes only. [facility] LACTIC ACIDon 10-01-2024 CR LACT 5.0 mmol/L Critically high 0.5-1.6 The [facility] Comment on above: Order Comment: This test was developed, and its performance characteristics determined by the Department of Pathology of The [facility]. It has not been cleared or approved by the FDA. This test is used for clinical purposes only. Performed By: #### L ACT ####S PATHOLOGY [id number] [place], [place], CR LACT 3.5 mmol/L Critically high 0.5-1.6 The [facility] Comment on above: Order Comment: This test was developed, and its performance characteristics determined by the Department of Pathology of The [facility]. It has not been cleared or approved by the FDA. This test is used for clinical purposes only. Performed By: #### L ACT ####S PATHOLOGY [id number] [place], [place], LACTIC ACIDOrdered By: Asia Xie on 10-01-2024 Interpretation and review of laboratory results Abnormal [facility] Lactate [Moles/Vol] 3.5 mmol/L Critically high 0.5 - 1.6 mmol/L [facility] This test was developed, and its performance characteristics determined by the Department of Pathology of The [facility]. It has not been cleared or approved by the FDA. This test is used for clinical purposes only. [facility] Lipid 1996 panelon Cholesterol [Mass/Vol] 152 mg/dL NINF - 200 mg/dL [facility] Comment on above: Desirable: < 200 [...] ratio] 9.5 {ratio} High NINF - 5.00 [facility] Interpretation and review of laboratory results Abnormal [facility] Triglyceride [Mass/Vol] 66 mg/dL NINF - 150 mg/dL [facility] Comment on above: Normal: < 150 mg/dL Borderline High: 150-199 mg/dL High: 200-499 mg/dL Very High: > = 500 mg/dL [facility] MAGNESIUMon 10-01-2024 Magnesium [Mass/Vol] 2 mg/dL 1.9 - 2 .7 mg/dL [facility] Magnesium [Mass/Vol] 2.0 mg/dL Normal 1.9-2.7 The [facility] Comment on above: Performed By: #### C H8, HDL, MG, PHOS ####[facility] [id number] [place], [address] MANUAL DIFF AND MORPHon Cells Counted Total (Bld) [#] 100 {cells} [facility] Lymphocytes (Bld) [#/Vol] 2.07 10*3/uL 1.00 - [...] [facility] RBC morphology finding Nom (Bld) Normal [facility] CELLS COUNTED TOTAL # IN BLOOD 100 Normal The [facility] Comment on above: Performed By: #### GILBERTO JARRETT ####[facility] PATHOLOGY [id number] [place] [address], #### HB A1C ####[facility] [address] [place], [place], LYMPHOCYTES % BY MANUAL COUNT 19.0 % Low 24.0-44.0 The [facility] Comment on above: Performed By: #### GILBERTO JARRETT ####[facility] PATHOLOGY [id number] [place] [address], #### HB A1C ####[facility] [address] [place], LYMPHOCYTES ABS BY MANUAL COUNT 2.07 K/uL Normal 1.00-4.80 [facility] Comment on above: Performed By: #### GILBERTO JARRETT ####[facility] PATHOLOGY [id number] [place] [address], #### HB A1C ####[facility] [address] [place] [address], MONOCYTES % BY MANUAL COUNT 4.0 % Normal 2.0-11.0 The [facility] Comment on above: Performed By: #### GILBERTO JARRETT ####[facility] PATHOLOGY [id number] [place] [address], #### HB A1C ####[facility] [address] [place] [address], MONOCYTES ABS BY MANUAL COUNT 0.44 K/uL Normal 0.20-1.00 [facility] Comment on above: Performed By: #### GILBERTO JARRETT ####[facility] PATHOLOGY [id number] [place] [address], #### HB A1C ####[facility] [address] [place], NEUTROPHILS % BY MANUAL COUNT 77.0 % High 31.0-76.0 The [facility] Comment on above: Performed By: #### GILBERTO JARRETT ####[facility] PATHOLOGY [id number] [place] [address], #### HB A1C ####S [facility] [address] [place], [address] NEUTROPHILS ABS BY MANUAL COUNT 8.39 K/uL High 1.50-8.00 The [facility] Comment on above: Performed By: #### GILBERTO JARRETT ####[facility] PATHOLOGY [id number] [place], [place], #### HB A1C ####[facility] [address] [place], [address] RBC MORPHOLOGY Normal Normal The [facility] Comment on above: Performed By: #### GILBERTO JARRETT ####S PATHOLOGY [id number] [place], [place], #### HB A1C ####[facility] [address] [place], [address] No Panel InformationOrdered By: Carla Garcia on 10-01-2024 Interpretation and review of laboratory results Abnormal [facility] No Panel Informationon 10-01 Interpretation and review of laboratory results Normal [facility] PHOSPHORUSon 10-01-2024 Phosphate [Mass/Vol] 4.9 mg/dL 2.5 - 5 .0 mg/dL [facility] Phosphate [Mass/Vol] 4.9 mg/dL Normal 2.5-5.0 [facility] Comment on above: Performed By: #### C H8, HDL, MG, PHOS ####[facility] PATHOLOGY [id number] [place], [place], Progress Noteson 10-01-2024 Business [employer] Sales Assistant Authentication Interface Message Text 1540: Critical lactate of 5.0, provider made aware. 1724: Rapid response RN notified of pending transfer to ICU. Vital signs stable, pt comfortable and cooperative, no concerns at this time. Normal [facility] Business Banking Sales Assistant Authentication Interface Message Text Dr. Hutchinson notified of critical Lactate value of 3.5. Dr. Hutchinson read back critical results. New orders not received. Normal [facility] B TYPE NATRIURETIC PEPTIDEon 09-30-2024 Interpretation and review of laboratory results Abnormal [facility] Natriuretic peptide B (Bld) [Mass/Vol] 6470 pg/mL High NINF - 100.0 pg/mL [facility] Natriuretic peptide B (Bld) [Mass/Vol] 6470.0 pg/mL High <100.0 The [facility] Comment on above: Performed By: #### B PL ####S [facility] [id number] [place] , [id number] BASIC METABOLIC PANELon 04-0 -2024 Anion gap [Moles/Vol] 17 mmol/L Normal 10-20 [facility] Comment on above: Performed By: #### M G, HEPATIC, CH8, LIP ####[facility] [id number] [place] , [id number] Calcium [Mass/Vol] 9.4 mg/dL Normal 8.6-10.3 [facility] Comment on above: Performed By: #### M G, HEPATIC, CH8, LIP ####[facility] [id number] [place] , [id number] Chloride [Moles/Vol] 98 mmol/L Normal 98-107 [facility] Comment on above: Performed By: #### M G, HEPATIC, CH8, LIP ####S [facility] [id number] [place] , [id number] CO2 [Moles/Vol] 23 mmol/L Normal 21-31 [facility] Comment on above: Performed By: #### M G, HEPATIC, CH8, LIP ####[facility] [id number] [place] , [id number] Creatinine [Mass/Vol] 2.64 mg/dL High 0.70-1.30 [facility] Comment on above: Performed By: #### M G, HEPATIC, CH8, LIP ####[facility] [id number] [place] , [id number] ESTIMATED GFR (CKD-EPI) 29 mL/min/1.73sqm Low >=60 [...] Inclusion of Race in Diagnosing Kidney Disease. Ethiopian Journal of Kidney Diseases 2021;79(2):268-88.e1.2. N Engl J Med 1 Vol. 385 Issue 19 Pages 3016-4973 Performed By: #### M G, HEPATIC, CH8, LIP ####[facility] [id number] [facility] , [id number] Glucose [Mass/Vol] 189 mg/dL High 74-109 [facility] Comment on above: Performed By: #### M G, HEPATIC, CH8, LIP ####[facility] [id number] [facility], [id number] Potassium [Moles/Vol] 4.0 mmol/L Normal 3.5-5.0 [facility] Comment on above: Performed By: #### M G, HEPATIC, CH8, LIP ####[facility] [id number] [facility] , [id number] Sodium [Moles/Vol] 134 mmol/L Low 136-145 [facility] Comment on above: Performed By: #### M G, HEPATIC, CH8, LIP ####[facility] [id number] [facility] [place], [id number] Urea nitrogen [Mass/Vol] 43 mg/dL High 7-25 [facility] Comment on above: Performed By: #### M G, HEPATIC, CH8, LIP ####[facility] [id number] [facility] , [id number] BLOOD CULTUREon 09-30-2024 Bacteria identified Cx Nom (Bld) C BLOOD: No Growth Normal [facility] Comment on above: Performed By: #### C BLOOD ####[facility] Sxjzpfzmu1624 [facility] [place], [place] BLOOD GAS, VENOUSon 10-01-19 25 Base excess [...] above: Performed By: #### C R BGV ####S [facility] [id number] [place], [id number] CR HCO3V 22 mmol/L Normal 21-28 [facility] Comment on above: Performed By: #### C R BGV ####S [facility] [id number] [place] , [id number] CR PHV 7.369 Normal 7.320-7.430 [facility] Comment on above: Performed By: #### C R BGV ####[facility] [id number] [place] , [id number] CR PVCO2 38.3 mm Hg Low 41.0-51.0 The [facility] Comment on above: Performed By: #### C R BGV ####[facility] [id number] [place] , [id number] CR PVO2 < 30 Low 38-44 [facility] Comment on above: Performed By: #### C R BGV ####S [facility] [id number] [place] , [id number] Oxygen saturation in Blood 10.1 % Low 70.0-80.0 [facility] Comment on above: Performed By: #### C R BGV ####[facility] SIRTLGYIZO[address] [place] [address], [place] Basic metabolic 2000 panelon 09-30-2024 Anion gap [...] Inclusion of Race in Diagnosing Kidney Disease. Ethiopian Journal of Kidney Diseases 202;79(2):268-88.e1. 2. N Engl J Med 2020 Vol. 385 Issue 19 Pages 5507-2221 Glucose [Mass/Vol] 189 mg/dL High 74 - [...] on above: Performed By: #### C BCDSAT ####[facility] PATHOLOGY [id number] [place], [place] Basophils/100 WBC (Bld) 0.3 % Normal <=1.9 The [facility] Comment on above: Performed By: #### C BCDSAT ####[facility] PATHOLOGY [id number] [place], [id number] Eosinophils (Bld) [#/Vol] 0.00 10*3/uL Normal 0.00-0.70 The [facility] Comment on above: Performed By: #### C BCDSAT ####[facility] PATHOLOGY [id number] [place], [place] Eosinophils/100 WBC (Bld) 0.1 % Normal 0.1-4.0 The [facility] Comment on above: Performed By: #### C BCDSAT ####[facility] PATHOLOGY [id number] [place], [place] Erythrocyte distribution width (RBC) [Ratio] 15.4 % High 11.5-14.5 The [facility] Comment on above: Performed By: #### C BCDSAT ####[facility] PATHOLOGY VNHRAURILN2592 [place], [place] Hematocrit (Bld) [Volume fraction] 47.7 % Normal 41.0-53.0 The [facility] Comment on above: Performed By: #### C BCDSAT ####[facility] PATHOLOGY [id number] [place], [place] Hemoglobin (Bld) [Mass/Vol] 15.6 g/dL Normal 13.9-16.3 The [facility] Comment on above: Performed By: #### C BCDSAT ####[facility] PATHOLOGY [id number] [place], [place] Lymphocytes (Bld) [#/Vol] 1.70 10*3/uL Normal 1.00-4.80 The [facility] Comment on above: Performed By: #### C BCDSAT ####[facility] PATHOLOGY [id number] [place], [id number] Lymphocytes/100 WBC (Bld) 21.5 % Low 24.0-44.0 [facility] Comment on above: Performed By: #### C BCDSAT ####[facility] PATHOLOGY [id number] [place], [id number] MCH (RBC) [Entitic mass] 34.1 pg High 26.0-34.0 The [facility] Comment on above: Performed By: #### C BCDSAT ####[facility] PATHOLOGY [id number] [place], [id number] MCHC (RBC) [Mass/Vol] 32.6 g/dL Normal 32.0-35.9 [facility] Comment on above: Performed By: #### C BCDSAT ####[facility] PATHOLOGY [id number] [place], [id number] MCV (RBC) [Entitic vol] 105 fL High 80-100 [facility] Comment on above: Performed By: #### C BCDSAT ####[facility] PATHOLOGY [id number] [place], [id number] Monocytes (Bld) [#/Vol] 0.60 10*3/uL Normal 0.20-1.00 [facility] Comment on above: Performed By: #### C BCDSAT ####[facility] PATHOLOGY [id number] [place], [id number] Monocytes/100 WBC (Bld) 7.7 % Normal 2.0-11.0 [facility] Comment on above: Performed By: #### C BCDSAT ####[facility] PATHOLOGY [id number] [place], [id number] Neutrophils (Bld) [#/Vol] 5.40 10*3/uL Normal 1.50-8.00 [facility] Comment on above: Performed By: #### C BCDSAT ####[facility] PATHOLOGY [id number] [place], [id number] Neutrophils/100 WBC (Bld) 70.4 % Normal 31.0-76.0 [facility] Comment on above: Performed By: #### C BCDSAT ####[facility] PATHOLOGY [id number] [place] , [id number] Nucleated RBC (Bld) [#/Vol] 10*3/uL Normal [facility] Comment on above: Performed By: #### Kelly TUCKERDSAT ####[facility] PATHOLOGY [id number] [place] , [id number] Nucleated RBC (Bld) [#/Vol] 0.01 10*3/uL Normal [facility] Comment on above: Performed By: #### C GARRETTDSAT ####S [facility] [id number] [place] , [id number] Platelet mean volume (Bld) [Entitic vol] 8.0 fL Normal 7.5-11.2 [facility] Comment on above: Performed By: #### C GARRETTDSAT ####S [facility] [id number] [place] , [id number] Platelets (Bld) [#/Vol] 299 10*3/uL Normal 150-400 [facility] Comment on above: Performed By: #### C BCDSAT ####S [facility] [id number] [place] , [id number] RBC (Bld) [#/Vol] 4.57 10*6/uL Normal 4.50-5.90 [facility] Comment on above: Performed By: #### C BCDSAT ####S [facility] [id number] [place] , [id number] WBC (Bld) [#/Vol] 7.7 10*3/uL Normal 4.5-11.5 [facility] Comment on above: Performed By: #### C BCDSAT ####[facility] [id number] [place] , [id number] COVID/INFLUENZAon 09-30-2024 FLUAV RNA DEENA+probe Ql (Nph) [...] technology. Performed By: #### F CLINT/COVID ####S [facility] PATH[facility] [id number] [place], [id number] INFLUENZA B Not detected Normal Not Detected [facility] Comment on above: Order Comment: Not D etected results are indicative of the absence of SARS-CoV-2 in the specimen submitted for testing. False negative results are possible based on the timing and quality of specimen submitted for testing. Result Comment: This assay was performed using Joyce DEQUAN RTPCR technology. Performed By: #### F CLINT/COVID ####S [facility] [id number] [facility] [place], [id number] SARS-CoV-2 (COVID-19) RNA DEENA+probe Ql (Unsp spec) Not detected Normal Not Detected [facility] Comment on above: Order Comment: Not D etected results are indicative of the absence of SARS-CoV-2 in the specimen submitted for testing. False negative results are possible based on the timing and quality of specimen submitted for testing. Result Comment: This assay was performed using Joyce DEQUAN RTPCR technology. Performed By: #### F CLINT/COVID ####[facility] [id number] [facility] , [id number] CT ABDOMEN/PELVIS W/O CONTRA STon 09-30-2024 CT ABDOMEN/PELVIS W/O CONTRAST Normal [facility] CT Abdomen and Pelvis WO con trastOrdered By: Dariel De Souza on 09-30-2024 CT DLP 832.55 (mGy.cm) [facility] Work Phone: CT Series Topogram,ABD/PEL [facility] Work Phone: CTDI VOL 0.10 (mGy),15.87 (mGy) [facility] Work Phone: PHANTOM TYPE IEC Body Dosimetry Phantom,IEC Body Dosimetry Phantom [facility] Work Phone: [employer] [facility] Work Phone: CT Abdomen and Pelvis WO [...] images and agree with the resident's interpretation. [facility] Radiology Study observation (narrative) [facility] ED Noteson 09-30-2024 Business Banking Sales Assistant Authentication Interface Message Text Pt refuses to swallow whole pills. Attempted with pudding and water. Pill then crushed and pt refused to take more than half Normal [facility] [employer] Sales Assistant Authentication Interface Message Text notified of critical lactate value of 4.3 read back critical results. No New orders Normal [facility] Business Banking Sales Assistant Authentication Interface Message Text DR. BERG NOTIFIED OF CRITICAL LACTATE LEVEL OF 5.0. ORDERS FOLLOWED. Normal [facility] Provider Noteson 10-01-19 Business Banking Sales Assistant Authentication Interface Message Text Normal [facility] H AND Timo 09-30-2024 Business Banking Sales Assistant Authentication Interface Message Text Normal [facility] Business Banking Sales Assistant Authentication Interface Message Text Normal [facility] HEPATIC FUNCTION PANELon Albumin [Mass/Vol] 3.8 g/dL 3.5 - 5.7 g/dL [facility] ALP [Catalytic activity/Vol] 331 U/L High [facility] ALT [Catalytic activity/Vol] 28 U/L [facility] AST [Catalytic activity/Vol] 19 U/L [facility] Bilirubin [Mass/Vol] 5.7 mg/dL High 0.3 - 1 .0 mg/dL [facility] Bilirubin.direct [Mass/Vol] 2.4 mg/dL High 0.03 - 0.18 mg/dL [facility] Interpretation and review of laboratory results [facility] Protein [Mass/Vol] 6.5 g/dL 6.0 - 8.3 g/dL [facility] Albumin [Mass/Vol] 3.8 g/dL Normal 3.5-5.7 [facility] Comment on above: Performed By: #### M G, HEPATIC, CH8, LIP ####S [facility] [id number] [facility] , [id number] ALK 331 IU/L High 34-104 The [facility] Comment on above: Performed By: #### M G, HEPATIC, CH8, LIP ####S [facility] [id number] [place] , [id number] ALT [Catalytic activity/Vol] 28 U/L Normal 7-52 The [facility] Comment on above: Performed By: #### M G, HEPATIC, CH8, LIP ####S [facility] [id number] [place] , [id number] AST [Catalytic activity/Vol] 19 U/L Normal 13-39 The [facility] Comment on above: Performed By: #### M G, HEPATIC, CH8, LIP ####S [facility] [id number] [place] , [id number] Bilirubin [Mass/Vol] 5.7 mg/dL High 0.3-1.0 The [facility] Comment on above: Performed By: #### M G, HEPATIC, CH8, LIP ####S [facility] [id number] [place] , [id number] Bilirubin.direct [Mass/Vol] 2.40 mg/dL High 0.03-0.18 The [facility] Comment on above: Performed By: #### M G, HEPATIC, CH8, LIP ####S [facility] [id number] [place] , [id number] Protein [Mass/Vol] 6.5 g/dL Normal 6.0-8.3 The [facility] Comment on above: Performed By: #### M G, HEPATIC, CH8, LIP ####S [facility] [id number] [place] , [id number] HIGH SENSITIVITY TROPONIN Io n 09-30-2024 Troponin I.cardiac DL <= 0.01 ng/mL [Mass/Vol] 32 ng/L High NINF - 15 ng/L [facility] HS TROPONIN I 32 ng/L High <=15 The [facility] Comment on above: Order Comment: Lowell monalisa troponin can result from acute myocardial [...] By: #### H STRP ####[facility] [id number] Jordon Tatum, [id number] Troponin I.cardiac DL <= 0.01 ng/mL [Mass/Vol] 38 ng/L High NINF - 15 ng/L [facility] HS TROPONIN I 38 ng/L High <=15 The [facility] Comment on above: Order Comment: Lowell monalisa troponin can result from acute myocardial [...] By: #### H STRP ####[facility] [id number] [place], [id number] LACTIC ACIDon 09-30-2024 Interpretation and review of laboratory results Abnormal [facility] Lactate [Moles/Vol] 3.8 mmol/L Critically high 0.5 - 1.6 mmol/L [facility] CR LACT 3.8 mmol/L Critically high 0.5-1.6 [facility] Comment on above: Performed By: #### L ACT ####[facility] [id number] Treekim TatumLAGUNA [place], [id number] Interpretation and review of laboratory results Abnormal [facility] Lactate [Moles/Vol] 4.3 mmol/L Critically high 0.5 - 1.6 mmol/L [facility] CR LACT 4.3 mmol/L Critically high 0.5-1.6 [facility] Comment on above: Performed By: #### L ACT ####[facility] [id number] Treekim TatumCOX [id number] Interpretation and review of laboratory results Abnormal [facility] Lactate [Moles/Vol] 5 mmol/L Critically high 0.5 - 1.6 mmol/L [facility] CR LACT 5.0 mmol/L Critically high 0.5-1.6 The [facility] Comment on above: Performed By: #### L ACT ####S [facility] [id number] [place], [id number] LIPASEon 09-30-2024 Interpretation and review of laboratory results Normal [facility] Lipase [Catalytic activity/Vol] 15 U/L [facility] LIP 15 IU/L Normal 11-82 The [facility] Comment on above: Performed By: #### M G, HEPATIC, CH8, LIP ####S [facility] [id number] [place] , [id number] MAGNESIUMOrdered By: Diana Herring on 09-30-2024 Interpretation and review of laboratory results Normal [facility] Magnesium [Mass/Vol] 2.3 mg/dL 1.9 - 2 .7 mg/dL [facility] MAGNESIUMon 09-30-2024 Magnesium [Mass/Vol] 2.3 mg/dL Normal 1.9-2.7 The [facility] Comment on above: Performed By: #### M G, HEPATIC, CH8, LIP ####S [facility] [id number] [place] , [id number] PROTHROMBIN TIME AND INRon 0 09-30-2024 INR Coag (PPP) [Relative time] 1.54 {INR} High 0.90 - 1.10 [facility] Interpretation and review of laboratory results Abnormal [facility] PT Coag (PPP) [Time] 18.2 s High [facility] INR Coag (PPP) [Relative time] 1.54 {INR} High 0.90-1.10 [facility] Comment on above: Performed By: #### P T ####[facility] [id number] [facility] [address] [id number] PT Coag (PPP) [Time] 18.2 s High 9.4-12.5 [facility] Comment on above: Performed By: #### P T ####[facility] [id number] [facility] , [id number] Telephone Encounteron 2024 Business Banking Sales Assistant Authentication Interface Message Text Normal [facility] Troponin I.cardiac DL <= 0.0 1 ng/mL [Mass/Vol]on 09-30-2024 Interpretation and review of laboratory results Abnormal [facility] Elevated troponin ca n result from [...] within the clinical context using provider judgement. [facility] Interpretation and review of laboratory results Abnormal [facility] Elevated troponin ca n result from [...] within the clinical context using provider judgement. [facility] X[facility] CHEST AP OR PA 1 VIEWon 0 09-30-2024 XR CHEST AP OR PA 1 VIEW Normal [facility] XR Chest Single viewon 09-30 EXAMINATION: [...] or pleural effusion. Limited exam. MACRO: None [facility] Radiology Study observation (narrative) [facility] XR Chest Single viewOrdered By: Vanessa Pyle on 09-30-2024 [facility] Work Phone: C BLOODon 09-23-2024 C BLOOD [facility] Dept of Laboratory Services [address] [place] [phone] Name: CARLO MEDINA : 1980 Admitting SABINE LANGFORD MD Provider: Gender Male Financial [id number] : Number: Mar[employer] EDTU; [id number] n: Admit 09/17/2024 Date: Discharge 09/19/2024 Microbiology [...] MEDINA Print 09/23/2024 00:00 EDT Date/Time: Normal [facility] Comment on above: Performed By: #### 1 37131, 040527, [id number] #### [facility] Services [address] [place] [address] Event Marketing Intern: Woody Leyva MD C BLOOD [facility] Dept of Laboratory Services [address] [place] [phone] Name: CARLO MEDINA : 1980 Admitting SABINE LANGFORD MD Provider: Gender Male Financial [id number] : Number: Mistyo EDTU; [id number] n: Admit 09/17/2024 Date: Discharge 09/19/2024 Microbiology [...] MEDINA Print 09/23/2024 00:00 EDT Date/Time: Normal [facility] Comment on above: Performed By: #### 1 42880, 607873, [id number] #### [facility] Laboratory Services [address] [place], [place] [id number] Event Marketing Intern: Woody Leyva MD AUTO DIFFon 09-19-2024 Baso Count 0.05 x1000 Normal 0.00-0.20 [facility] Comment on above: Performed By: #### 1 39181, 098912, [id number] #### [facility] Services [address] [place], [place] [phone] Event Marketing Intern: Woody Leyva MD Basos % 0.6 % Normal [facility] Comment on above: Performed By: #### 1 58700, 516409, [id number] #### [facility] [address] [place], [place] [id number] [phone] Event Marketing Intern: Woody Leyva MD Eos Count 0.05 x1000 Normal 0.00-0.50 [facility] Comment on above: Performed By: #### 1 91561, 220277, [id number] #### [facility] [address] [place] [address] 19[address] Event Marketing Intern: Woody Leyva MD Eosinophils/100 WBC (Bld) 0.6 % Normal [facility] Comment on above: Performed By: #### 1 52893, 545033, [id number] #### [facility] Services [address] [place] [address] 16047 Event Marketing Intern: Woody Leyva MD Lymph Count 2.08 x1000 Normal 1.20-4.80 [facility] Comment on above: Performed By: #### 1 , 506653, [id number] #### [facility] Services [address] [place] [address] 89373 Event Marketing Intern: Woody Leyva MD Lymphocytes/100 WBC (Bld) 26.8 % Normal [facility] Comment on above: Performed By: #### 1 76959, 613634, [id number] #### [facility] Services [address] [place] [address]16[address] Event Marketing Intern: Woody Leyva MD [place] Count 0.74 x1000 Normal 0.10-1.00 [facility] Comment on above: Performed By: #### 1 , 410438, [id number] #### [facility] Services [address] [place] [address] 87290 Event Marketing Intern: Woody Leyva MD Monocytes/100 WBC (Bld) 9.4 % Normal [facility] Comment on above: Performed By: #### 1 60199, 932208, [id number] #### [facility] Services [address] [place] [address] 40591 Event Marketing Intern: Woody Leyva MD Neutrophil Count (ANC) 4.87 x1000 Normal 1.40-8.80 [facility] Comment on above: Performed By: #### 1 95772, 176026, [id number] #### [facility] Services [address] [place] [address] 62470 Event Marketing Intern: Woody Leyva MD Neutrophils/100 WBC (Bld) 62.5 % Normal [facility] Comment on above: Performed By: #### 1 86291, 514182, [id number] #### [facility] Services [address] [place] [address] 79850 Event Marketing Intern: Woody Leyva MD COMPMETAon 09-19-2024 Albumin [Mass/Vol] 3.0 g/dL Low 3.4-5.0 [facility] Comment on above: Performed By: #### 1 71495, 131221, 6457835 #### [facility] Services [address] [place] [address] 32142 Event Marketing Intern: Woody Leyva MD Albumin/Globulin [Mass ratio] 0.9 {ratio} Normal [facility] Comment on above: Performed By: #### 1 74061, 631288, [id number] #### [facility] Services [address] [place] [address] 24000 Event Marketing Intern: Woody Leyva MD Alk Phos 276 unit/L High 45-117 [facility] Comment on above: Performed By: #### 1 23826, 007805, [id number] #### [facility] Services [address] [place] [address]0350 Event Marketing Intern: Woody Leyva MD Bilirubin [Mass/Vol] 2.90 mg/dL High 0.30-1.20 [facility] Comment on above: Result Comment: Use of this assay is not recommended for patients undergoing treatment with eltrombopag due to the potential for falsely elevated results. Performed By: #### 1 48791, 360382, [id number] #### [facility] Services [address] [place] [address] 59694 Event Marketing Intern: Woody Leyva MD Calcium [Mass/Vol] 9.0 mg/dL Normal 8.7-10.4 [facility] Comment on above: Performed By: #### 1 48228, 217432, 0778279 #### [facility] Services [address] [place] [address] Event Marketing Intern: Woody Leyva MD Chloride [Moles/Vol] 100 mmol/L Normal 98-107 [facility] Comment on above: Performed By: #### 1 24978, 100815, [id number] #### [facility] [address] [place] [address] 42276 Event Marketing Intern: Woody Leyva MD CO2 [Moles/Vol] 26.0 mmol/L Normal 20.0-31.0 [facility] Comment on above: Performed By: #### 1 83164, 833751, [id number] #### [facility] [address] [place] [address] 78504 Event Marketing Intern: Woody Leyva MD Creatinine [Mass/Vol] 2.3 mg/dL High 0.6-1.1 [facility] Comment on above: Performed By: #### 1 80762, 665310, 7328740 #### [facility] Services [address] [place] [address] 24000 Event Marketing Intern: Woody Leyva MD GFR AA 37 Normal [facility] Comment on above: Result Comment: Afri can Ethiopian GFR Calc Medical judgement is necessary to [...] for drug dosing. Performed By: #### 1 60492, 835071, 6008817 #### [facility] [address] [place] [address] 05464 Event Marketing Intern: Woody Leyva MD Globulin (S) [Mass/Vol] 3.2 g/dL Normal [facility] Comment on above: Performed By: #### 1 18629, 423268, 9802654 #### [facility] [address] [place] [address] 55348 Event Marketing Intern: Woody Leyva MD Glomerular Filtration Rate 31 mL/min/1.73m? Normal [facility] Comment on above: Result Comment: Non- GFR [...] for drug dosing. Performed By: #### 1 79437, 645216, 3154449 #### [facility] [address] [place] [address] 42715 Event Marketing Intern: Woody Leyva MD Glucose [Mass/Vol] 117 mg/dL High 74-106 [facility] Comment on above: Performed By: #### 1 78208, 847928, 9370108 #### [facility] [address] [place] [address] 73550 Event Marketing Intern: Woody Leyva MD GOT 34 unit/L Normal 15-37 [facility] Comment on above: Performed By: #### 1 50860, 877862, 5645321 #### [facility] [address] [place] [address] 11563 Event Marketing Intern: Woody Leyva MD GPT 47 unit/L Normal 10-49 [facility] Comment on above: Performed By: #### 1 07843, 777409, [id number] #### [facility] [address] [place] [address] 39832 Event Marketing Intern: Woody Leyva MD Osmolality [Osmolality] 292 mosm/kg Normal 275-295 [facility] Comment on above: Performed By: #### 1 72773, 095881, 2737635 #### [facility] [address] [place] [address] 89836 Event Marketing Intern: Woody Leyva MD Potassium [Moles/Vol] 3.7 mmol/L Normal 3.5-5.1 [facility] Comment on above: Performed By: #### 1 97647, 877884, 1779610 #### [facility] [address] [place] [address] 77368 Event Marketing Intern: Woody Leyva MD Protein [Mass/Vol] 6.2 g/dL Normal 5.7-8.2 [facility] Comment on above: Result Comment: Tota l Protein results may be increased in patients receiving dextran as a blood volume 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 security engineer Performed By: #### 1 01237, 507459, 1559808 #### [facility] [address] [place] [address] 63503 Event Marketing Intern: Woody Leyva MD Sodium [Moles/Vol] 139 mmol/L Normal 135-145 [facility] Comment on above: Performed By: #### 1 47457, 724400, 8990035 #### [facility] [address] [place] [address] 79432 Event Marketing Intern: Woody Leyva MD Urea nitrogen [Mass/Vol] 50 mg/dL High 9-23 [facility] Comment on above: Result Comment: - Ve nipuncture should occur prior to N-Acetyl Cysteine (NAC) or Metamizole (Sulpyrine) administration due to the potential for falsely depressed results. - Blood samples from some patients with monoclonal gammopathies may produce falsely elevated results Performed By: #### 1 37655, 780572, [id number] #### [facility] [address] [place] [address] 80879 Event Marketing Intern: Woody Leyva MD Urea nitrogen/Creatinine [Mass ratio] 21.7 mg/mg Normal [facility] Comment on above: Performed By: #### 1 24515, 612610, 6259724 #### [facility] Services [address] [place] [address] 57165 Event Marketing Intern: Woody Leyva MD Consult Reporton 09-19-2024 Consult [...] Advised him to follow-up with the regular bottom precipitator operator. Will try to obtain records however [...] CHLORIDE SYR/VIAL 10ML 3 mL, IV Push, [id number] Continuous: (0) PRN: (8) ACETAMINOPHEN 325 MG TAB 650 mg 2 tabs, ORAL, [id number] ACETAMINOPHEN 325 MG TAB 650 mg 2 tabs, ORAL, [id number] ACETAMINOPHEN 325 MG TAB 650 mg 2 tabs, ORAL, [id number] MELATONIN 5MG TAB 5 mg 1 tabs, ORAL, [id number]/[id number] NALOXONE 0.4MG/1ML INJ 0.4 mg 1 mL, IV Push, PRN ONDANSETRON=ZOFRAN INJ 4 mg 2 mL, IV Push, [id number] SODIUM CHLORIDE SYR/VIAL 10ML 3 mL, IV Push, PRN TramADOL 50MG TABLET 50 mg 1 tabs, ORAL, [id number] Allergies (1) Active Severity Reaction No Known [...] available. BNP No qualifying data available. Normal [facility] HEMOon 09-19-2024 DIFF? No Normal [facility] Comment on above: Performed By: #### 1 25691, 279655, 8958508 #### [facility] Services [address] [place] [address] Event Marketing Intern: Woody Leyva MD Erythrocyte distribution width (RBC) [Ratio] 14.0 % Normal 11.5-14.5 [facility] Comment on above: Performed By: #### 1 12810, 208421, 5677813 #### [facility] [address] [place] [id number] Event Marketing Intern: Woody Leyva MD Hematocrit (Bld) [Volume fraction] 40.1 % Low 41.0-52.0 [facility] Comment on above: Performed By: #### 1 33939, 346078, 6623922 #### [facility] Services [address] [place], [place] [phone] Event Marketing Intern: Woody Leyva MD Hemoglobin (Bld) [Mass/Vol] 13.6 g/dL Normal 13.5-17.5 [facility] Comment on above: Performed By: #### 1 88053, 236876, 4882524 #### [facility] [address] [place] [address] Event Marketing Intern: Woody Leyva MD Instr WBC 7.8 Normal [facility] Comment on above: Performed By: #### 1 , 126404, [id number] #### [facility] [address] [place] [address] Event Marketing Intern: Woody Leyva MD MCH (RBC) [Entitic mass] 34.6 pg High 27.0-34.0 [facility] Comment on above: Performed By: #### 1 49921, 091974, 9658719 #### [facility] [address] [place] [address] Event Marketing Intern: Woody Leyva MD MCHC (RBC) [Mass/Vol] 33.8 g/dL Normal 32.0-37.0 [facility] Comment on above: Performed By: #### 1 64702, 784730, [id number] #### [facility] [address] [place], [place] [address] Event Marketing Intern: Woody Leyva MD MCV (RBC) [Entitic vol] 102.2 fL High 80.0-100.0 [facility] Comment on above: Performed By: #### 1 00760, 468781, 1314266 #### [facility] Laboratory Services [address] [place], [place] [address] Event Marketing Intern: Woody Leyva MD Nucleated RBC 0 /100WBC Normal [facility] Comment on above: Performed By: #### 1 74370, 828679, 4216812 #### [facility] [address] [place] [address] 23831 Event Marketing Intern: Woody Leyva MD Platelet 186 x10 Normal 150-450 [facility] Comment on above: Performed By: #### 1 05452, 086536, 3363562 #### [facility] [address] [place] [address] 52118 Event Marketing Intern: Woody Leyva MD Platelet mean volume (Bld) [Entitic vol] 8.5 fL Normal 7.4-10.4 [facility] Comment on above: Performed By: #### 1 48185, 824760, 5863023 #### [facility] [address] [place] [address] 08537 Event Marketing Intern: Woody Leyva MD RBC 3.92 x10 Low 4.70-6.10 [facility] Comment on above: Result Comment: Note : RBC morphology is normal unless otherwise stated. Evaluation performed only if differential is requested. Performed By: #### 1 34569, 059041, 5846413 #### [facility] [address] [place] [address] 36505 Event Marketing Intern: Woody Leyva MD WBC 7.8 x10 Normal 4.5-11.0 [facility] Comment on above: Performed By: #### 1 11987, 084958, [id number] #### [facility] [address] [place] [address] 50389 Event Marketing Intern: Woody Leyva MD Inpatient Patient Summaryon 09-19-2024 Inpatient Patient Summary [facility] Discharge Instructions [address] [place] [address] [id number] (Patient Copy) Name: CARLO MEDINA : 1980 Diagnosis: 1:Chest pain; 2:Vomiting; 3:Lactic acidosis Allergies: No Known Medication Allergies Registration Date: 09/17/24 [facility]#: [id number] Current Date Time: 09/19/2024 11:12:08 Address: [facility] [place] [address] Primary Care Provider: Name: SHARI HIGGINS Phone: [phone] Thank you for choosing [facility] for your care. You are very important to us. Our goal is to demonstrate our high quality medical care and provide you with a very good patient experience. You may receive a survey about our service. Please take the time to complete the survey and return it so we can continue to enhance our service. Thank you again for allowing [facility] to care for your medical [...] With: Address: When: GIOVANI GARCIA, Cardiology [address] [facility] [address] [place] [address] Business (1) Within 5 to 7 days Comments: Call 911 with signs/symptoms of Stroke. Call 911 with symptoms of Chest Pain. Call Dr if you have Shortness of Breath. This is a bottom precipitator operator [place] [facility] [place] in the [place] area. If you would like to use this bottom precipitator operator and his group, please give them a call for a follow-up appoint within 5-7 days OR you can find a bottom precipitator operator closer to home of you choice or one that is on your insurance. Thank You With: Address: When: Please follow-up with your Primary Care Dr and establish a Imaging Tech of your choice. One will be provided below if you need a bottom precipitator operator here [place] [facility] [place] With: Address: When: SHARI HIGGINS [address] [place] [address] [place], [place] [phone] Business (1) Within Call for Appointment If [...] until you (more content not included)... Normal [facility] Apprentice Jockey Detailson 2024 Apprentice Jockey Details Apprentice Jockey Details Entered On: 09/19/2024 0:18 EDT Performed On: 09/19/2024 0:17 EDT by Berenice Reeder RN Apprentice Jockey Details Transport Mode Order Detail EV : [...] Constant Order, Current ACLS Provider may, Initiate [employer] [employer] Advanced Cardiac Life support Algorithm [...] the responsibility of the admitting/attending physician., [facility], 09/17/2024 18:16:00 EDT, Constant Order, NPO, Ordered Isolation Precaution Order Detail EV : NONE IV Order Detail - EV : No Oxygen Order Detail EV : No Order Detail EV : No Pacemaker Order Detail : 0 Apprentice Jockey Details Review Status : Reviewed, no changes Nurse Collects Blood Specimens : No Berenice Reeder RN - 09/19/2024 0:17 EDT Normal [facility] Comment on above: Order Comment: Order entered [...] CHLORIDE SYR/VIAL 10ML 3 mL, IV Push, [id number] Continuous: (0) PRN: (8) ACETAMINOPHEN 325 MG TAB 650 mg 2 tabs, ORAL, [id number] ACETAMINOPHEN 325 MG TAB 650 mg 2 tabs, ORAL, [id number] ACETAMINOPHEN 325 MG TAB 650 mg 2 tabs, ORAL, [id number] MELATONIN 5MG TAB 5 mg 1 tabs, ORAL, [id number]/[id number] NALOXONE 0.4MG/1ML INJ 0.4 mg 1 mL, IV Push, PRN ONDANSETRON=ZOFRAN INJ 4 mg 2 mL, IV Push, [id number] SODIUM CHLORIDE SYR/VIAL 10ML 3 mL, IV Push, PRN TramADOL 50MG TABLET 50 mg 1 tabs, ORAL, [id number] Problem list: Active Problems (3) At risk [...] cleared he will be discharged today Normal [facility] APTTon 09-18-2024 aPTT Coag (Bld) [Time] 31.3 s Normal 26.0-36.0 [facility] Comment on above: Result Comment: APTT Interpretation: This test has not been validated to monitor heparin therapy. APTT test is used as an initial test for suspected bleeding disorder. Anti-Xa UFH test is used to monitor heparin therapy. Performed By: #### 1 03499, 316614, 257524, 182296, 001928, 604902 #### [facility] [address] [place] [address] Event Marketing Intern: Woody Leyva MD AUTO DIFFon 09-18-2024 Baso Count 0.04 x1000 Normal 0.00-0.20 [facility] Comment on above: Performed By: #### 1 70914, 366480, [id number] #### [facility] [address] [place] [address] Event Marketing Intern: Woody Leyva MD Basos % 0.7 % Normal [facility] Comment on above: Performed By: #### 1 08324, 928924, [id number] #### [facility] [address] [place] [address] Event Marketing Intern: Woody Leyva MD Eos Count 0.02 x1000 Normal 0.00-0.50 [facility] Comment on above: Performed By: #### 1 33302, 966973, [id number] #### [facility] [address] [place] [address] Event Marketing Intern: Woody Leyva MD Eosinophils/100 WBC (Bld) 0.4 % Normal [facility] Comment on above: Performed By: #### 1 81948, 510394, [id number] #### [facility] [address] [place] [address] Event Marketing Intern: Woody Leyva MD Lymph Count 1.36 x1000 Normal 1.20-4.80 [facility] Comment on above: Performed By: #### 1 43172, 703059, [id number] #### [facility] [address] [place] [address] Event Marketing Intern: Woody Leyva MD Lymphocytes/100 WBC (Bld) 27.0 % Normal [facility] Comment on above: Performed By: #### 1 41979, 095585, [id number] #### [facility] [address] [place] [address] Event Marketing Intern: Woody Leyva MD [place] Count 0.35 x1000 Normal 0.10-1.00 [facility] Comment on above: Performed By: #### 1 26190, 865480, 1036918 #### [facility] [address] [place] [address] Event Marketing Intern: Woody Leyva MD Monocytes/100 WBC (Bld) 7.0 % Normal [facility] Comment on above: Performed By: #### 1 09124, 107037, [id number] #### [facility] [address] [place] [address] Event Marketing Intern: Woody Leyva MD Neutrophil Count (ANC) 3.26 x1000 Normal 1.40-8.80 [facility] Comment on above: Performed By: #### 1 74470, 842719, [id number] #### [facility] [address] [place] [address] Event Marketing Intern: Woody Leyva MD Neutrophils/100 WBC (Bld) 64.9 % Normal [facility] Comment on above: Performed By: #### 1 48546, 443077, [id number] #### [facility] [address] [place] [address] Event Marketing Intern: Woody Leyva MD Admission Assessment Adulton 09-18-2024 Admission Assessment Adult Adult Admission Data Entered On: 09/18/2024 15:24 EDT Performed On: 09/18/2024 9:00 EDT by Nicole Manning RN Patient Safety Grid ID Band on and Verified : Yes Nicole Manning RN - 09/18/2024 15:21 EDT (As Of: 09/18/2024 15:24:06 [...] Concerns? : Patient denies Nicole Manning RN - 09/18/2024 15:21 EDT Depression Screening Patient able to verbalize? : Yes Feeling Down, Depressed, Hopeless : Not at all Little Interest - Pleasure in Activities : Not at all Initial Depression Screen Score : 0 Depression Screening Score 0 : No IP Pt being evaluated or treated for BH conditions : No Nicole Manning RN - 09/18/2024 15:21 EDT [place] Coma Eye Opening Response [place] : Spontaneously Best Verbal Response Yesenia : Oriented Best Motor Response Yesenia : Obeys simple commands [place] Coma Score : 15 Nicole Manning RN [...] Skin Temperature : Warm Skin Color : Carnuel Skin Turgor : Elastic Mucous Membrane Color : Carnuel Mucous Membrane Description : Dry Skin Description : Dry Nicole Manning RN 09/18/2024 15:21 EDT Education Responsible Learner/s Present : No Data Available Barriers to Learning : None evident TeachBack Methodology : Explanation Nicole Manning RN 09/18/2024 15:21 EDT Notifications PCP notified of your admission? : No Emergency Contact notified of your admission? : No Nicole Manning RN 09/18/2024 15:21 EDT Normal [facility] Comment on above: Order Comment: Order entered secondary to admission Admission History Adulton Admission History Adult Patient History Model Entered On: 09/18/2024 15:25 EDT Performed On: 09/18/2024 15:24 EDT by Nicole Manning RN General Info Preferred Verbal : Mozambican Contact Information : girlfriend Preferred Written : Mozambican Currently or : Not Applicable Is patient a dialysis patient? : No Nicole Manning RN - 09/18/2024 15:24 EDT Problem List Problem List obtained from : Patient Nicole Manning RN - 09/18/2024 15:24 EDT (As Of: 09/18/2024 15:25:48 EDT) Problems(Active) At risk for falls (SNOMED CT :529048639 ) Name of Problem: At risk for falls ; Recorder: SYSTEM; Confirmation: Confirmed ; Classification: Nursing ; Code: [id number] ; Last Updated: 09/18/2024 00:13 EDT ; Life Cycle Date: 09/18/2024 ; Life Cycle Status: Active ; Vocabulary: SNOMED CT ; Comments: 09/18/2024 0:13 - SYSTEM Problem added automatically by system based on documentation of a admission to the hospital. Heart disease (SNOMED CT :98812526 ) Name of Problem: Heart disease ; Recorder: Nicole Manning RN; Confirmation: Confirmed ; Classification: Medical ; Code: [id number] ; Contributor System: Power Liens ; Last Updated: 09/18/2024 11:31 EDT ; Life Cycle Date: 09/18/2024 ; Life Cycle Status: Active ; Responsible Provider: Nicole Manning RN; Vocabulary: SNOMED CT Kidney disease (SNOMED CT :760896733 ) Name of Problem: Kidney disease ; Recorder: Nicole Manning RN; Confirmation: Confirmed ; Classification: Medical ; Code: [id number] ; Contributor System: Power Liens ; Last Updated: 09/18/2024 11:31 EDT ; Life Cycle Date: 09/18/2024 ; Life Cycle Status: Active ; Responsible Provider: Nicole Manning RN; Vocabulary: SNOMED CT Diagnoses(Active) chest burning Date: 09/17/2024 ; Diagnosis Type: Reason For Visit ; Confirmation: Confirmed ; Clinical Dx: chest burning ; Classification: Medical ; Clinical Service: Emergency medicine ; Code: PNED ; Probability: 0 ; Diagnosis Code: [id number] Chest pain Date: 09/18/2024 ; Diagnosis Type: [...] PNED ; Probability: 0 ; Diagnosis Code: [id number] Vomiting Date: 09/18/2024 ; Diagnosis Type: Discharge [...] 1 year : No Nicole Manning RN 09/18/2024 15:24 EDT Social History (As Of: [...] Manning RN - 09/18/2024 15:24 EDT Normal [facility] Comment on above: Order Comment: Order entered [...] Manning RN - 09/18/2024 11:30 EDT Normal [facility] Comment on above: Order Comment: Order entered secondary to admission COMPMETAomarguerite 09-18-2024 GFR Estimated 41 Normal [facility] Comment on above: Result Comment: The GFR is calculated and is Age, Sex and Race adjusted. Performed By: #### 1 63069, 066738, [id number] #### [facility] [address] [place] [address] Event Marketing Intern: Woody Leyva MD Albumin [Mass/Vol] 3.0 g/dL Low 3.4-5.0 [facility] Comment on above: Performed By: #### 1 13136, 522369, 1441927 #### [facility] [address] [place], [place] [phone] Event Marketing Intern: Woody Leyva MD Albumin/Globulin [Mass ratio] 0.9 {ratio} Normal [facility] Comment on above: Performed By: #### 1 , 667147, [id number] #### [facility] [address] [place], [place] [address] Event Marketing Intern: Woody Leyva MD Alk Phos 223 unit/L High 45-117 [facility] Comment on above: Performed By: #### 1 , 714948, [id number] #### [facility] [address] [place], [place] [address] Event Marketing Intern: Woody Leyva MD Bilirubin [Mass/Vol] 4.20 mg/dL High 0.30-1.20 [facility] Comment on above: Result Comment: Use of this assay is not recommended for patients undergoing treatment with eltrombopag due to the potential for falsely elevated results. Performed By: #### 1 , 652350, [id number] #### [facility] [address] [place], [place] [address] Event Marketing Intern: Woody Leyva MD Calcium [Mass/Vol] 9.1 mg/dL Normal 8.7-10.4 [facility] Comment on above: Performed By: #### 1 21664, 111423, 0076666 #### [facility] [address] [place] [address] Event Marketing Intern: Woody Leyva MD Chloride [Moles/Vol] 100 mmol/L Normal 98-107 [facility] Comment on above: Performed By: #### 1 02098, 963756, 2303544 #### [facility] [address] [place] [address] Event Marketing Intern: Woody Leyva MD CO2 [Moles/Vol] 26.0 mmol/L Normal 20.0-31.0 [facility] Comment on above: Performed By: #### 1 15640, 035238, [id number] #### [facility] [address] [place] [address] Event Marketing Intern: Woody Leyva MD Creatinine [Mass/Vol] 2.1 mg/dL High 0.6-1.1 [facility] Comment on above: Performed By: #### 1 44897, 559528, 2632746 #### [facility] [address] [place] [address] Event Marketing Intern: Woody Leyva MD GFR AA 41 [facility] Comment on above: Result Comment: Afri can Ethiopian GFR Calc Medical judgement is necessary to [...] for drug dosing. Performed By: #### 1 77135, 172758, 6341330 #### [facility] [address] [place] [address] 8[address] Event Marketing Intern: Woody Leyva MD Globulin (S) [Mass/Vol] 3.2 g/dL [facility] Comment on above: Performed By: #### 1 22973, 222698, 8676305 #### [facility] [address] [place] [address] Event Marketing Intern: Woody Leyva MD Glomerular Filtration Rate 34 mL/min/1.73m? [facility] Comment on above: Result Comment: Non- [...] for drug dosing. Performed By: #### 1 59013, 587358, 2203369 #### [facility] [address] [place] [address] Event Marketing Intern: Woody Leyva MD Glucose [Mass/Vol] 175 mg/dL High 74-106 [facility] Comment on above: Performed By: #### 1 23357, 203516, 7567594 #### [facility] [address] [place] [address]007 Event Marketing Intern: Woody Leyva MD GOT 28 unit/L Normal 15-37 [facility] Comment on above: Performed By: #### 1 58360, 805614, 1272423 #### [facility] [address] [place] [address] Event Marketing Intern: Woody Leyva MD GPT 43 unit/L Normal 10-49 [facility] Comment on above: Performed By: #### 1 09533, 377897, 1183073 #### [facility] [address] [place] [address] Event Marketing Intern: Woody Leyva MD Osmolality [Osmolality] 295 mosm/kg Normal 275-295 [facility] Comment on above: Performed By: #### 1 69759, 175638, 9349588 #### [facility] [address] [place] [address]3926 Event Marketing Intern: Woody Leyva MD Potassium [Moles/Vol] 3.6 mmol/L Normal 3.5-5.1 [facility] Comment on above: Result Comment: Spec imen slightly hemolyzed. Results may be affected. 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 Performed By: #### 1 14019, 804899, 7797382 #### [facility] [address] [place] [address] 21783 Event Marketing Intern: Woody Leyva MD Sodium [Moles/Vol] 140 mmol/L Normal 135-145 [facility] Comment on above: Performed By: #### 1 63718, 586153, 7035185 #### [facility] [address] [place] [address] Event Marketing Intern: Woody Leyva MD Urea nitrogen [Mass/Vol] 45 mg/dL High 9-23 [facility] Comment on above: Result Comment: - Ve nipuncture should occur prior to N-Acetyl Cysteine (NAC) or Metamizole (Sulpyrine) administration due to the potential for falsely depressed results. - Blood samples from some patients with monoclonal gammopathies may produce falsely elevated results Performed By: #### 1 64542, 229855, [id number] #### [facility] [address] [place] [address]39 Event Marketing Intern: Woody Leyva MD Urea nitrogen/Creatinine [Mass ratio] 21.4 mg/mg Normal [facility] Comment on above: Performed By: #### 1 93844, 807802, 5495902 #### [facility] [address] [place] [address] 03383 Event Marketing Intern: Woody Leyva MD ED Physician Reporton 2024 [...] stated that he was recently seen at [facility] and was in the hospital last week [...] sodium chloride(Saline Flush), 3 mL, IV Push, [id number] sodium chloride(Saline Flush), 3 mL, IV Push, [...] EVANS, Talia, 09/17/2024 22:44:00 EDT, Specimen type: 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 EKG ER, 09/17/2024 18:16:00 EDT, Chest Pain, Cart, Heart Meds Unknown at this time, STAT, No EKG/[place] Requested LACTATE, STAT, 09/17/2024 19:49:00 EDT Level of Care Order, 09/18/2024 00:07:00 EDT, Observation Outpatient with Observation Services, 1DOU, ANGELIA DO, REAGAN, Chest discomfort, lactic acidosis, generalized fatigue LIP(LIPASE), STAT, 09/17/2024 21:00:00 EDT, REDRAW HEMOLYZED MG LEVEL, STAT, 09/17/2024 21:00:00 EDT, REDRAW HEMOLYZED Misc Nutrition Task to Nursing, 09/17/2024 18:16:00 EDT, Constant Order, NPO PT INR, STAT, 09/17/2024 21:00:00 EDT, REDRAW HEMOLYZED RAP FLU A AND B(RAPID INFLU (more content not included)... Normal [facility] HEMOon 09-18-2024 DIFF? No Normal [facility] Comment on above: Performed By: #### 1 72611, 896507, [id number] #### [facility] [address] [place], [place] [address] Event Marketing Intern: Woody Leyva MD Erythrocyte distribution width (RBC) [Ratio] 13.8 % Normal 11.5-14.5 [facility] Comment on above: Result Comment: Revi ewed Performed By: #### 1 89856, 734470, 2521421 #### [facility] [address] [place], [place] [address] Event Marketing Intern: Woody Leyva MD Hematocrit (Bld) [Volume fraction] 40.8 % Low 41.0-52.0 [facility] Comment on above: Performed By: #### 1 08183, 251780, 7558874 #### [facility] [address] [place], [place] [address] Event Marketing Intern: Woody Leyva MD Hemoglobin (Bld) [Mass/Vol] 13.6 g/dL Normal 13.5-17.5 [facility] Comment on above: Performed By: #### 1 37023, 495417, 6617465 #### [facility] [address] [place], [place] [address] Event Marketing Intern: Woody Leyva MD Instr WBC 5.0 Normal [facility] Comment on above: Performed By: #### 1 86715, 636497, 9905126 #### [facility] [address] [place] [address] Event Marketing Intern: Woody Leyva MD MCH (RBC) [Entitic mass] 34.4 pg High 27.0-34.0 [facility] Comment on above: Performed By: #### 1 03399, 166823, 0988361 #### [facility] [address] [place] [address] 8[address] Event Marketing Intern: Woody Leyva MD MCHC (RBC) [Mass/Vol] 33.3 g/dL Normal 32.0-37.0 [facility] Comment on above: Performed By: #### 1 19677, 967575, 0144388 #### [facility] [address] [place] [address] 76937 Event Marketing Intern: Woody Leyva MD MCV (RBC) [Entitic vol] 103.4 fL High 80.0-100.0 [facility] Comment on above: Performed By: #### 1 23126, 446649, 7961610 #### [facility] [address] [place] [address] 75558 Event Marketing Intern: Woody Leyva MD Nucleated RBC 0 /100WBC Normal [facility] Comment on above: Performed By: #### 1 94147, 655632, 2307607 #### [facility] [address] [place] [address] 87402 Event Marketing Intern: Woody Leyva MD Platelet 179 x10 Normal 150-450 [facility] Comment on above: Performed By: #### 1 70905, 614274, 1787353 #### [facility] [address] [place] [address] 47267 Event Marketing Intern: Woody Leyva MD Platelet mean volume (Bld) [Entitic vol] 8.1 fL Normal 7.4-10.4 [facility] Comment on above: Performed By: #### 1 13206, 359598, 3385992 #### [facility] [address] [place] [address] [id number] Event Marketing Intern: Woody Leyva MD RBC 3.94 x10 Low 4.70-6.10 [facility] Comment on above: Result Comment: Note : RBC morphology is normal unless otherwise stated. Evaluation performed only if differential is requested. Performed By: #### 1 41370, 371466, 1571291 #### [facility] [address] [place] [address] Event Marketing Intern: Woody Leyva MD WBC 5.0 x10 Normal 4.5-11.0 [facility] Comment on above: Performed By: #### 1 80312, 725372, 7212911 #### [facility] [address] [place] [address] Event Marketing Intern: Woody Leyva MD LACTATEon 09-18-2024 Lactate [Moles/Vol] 2.6 mmol/L High 0.5-2.2 [facility] Comment on above: Order Comment: Sepsi s Lab - Time Sensitive. Do Not Cancel, Delay Lab, or Change Timewas not able to obtain lactate lab @ 1391 with redraw of specimens, pt most likely will refuse future labs notified CRISTINE Kowalski 09/18/2024 00:19:38 EDT AJ Result Comment: Spec imen icteric. Results may be affected. Venipuncture should occur prior to N-Acetyl Cysteine (NAC) administration due to the potential for falsely depressed results Performed By: #### 1 57749, 399671, [id number] #### [facility] [address] [place] [id number] Event Marketing Intern: Woody Leyva MD Apprentice Jockey Detailson 2024 Apprentice Jockey Details Apprentice Jockey Details Entered On: 09/18/2024 11:32 EDT Performed On: 09/18/2024 8:00 EDT by Nicole Manning RN Apprentice Jockey Details Transport Mode Order Detail EV : Wheelchair Isolation Precautions RTF : Communication CONSTANT Order, 09/18/2024 09:58:00 EDT, Constant Order, STAT EKG for Chest Pain, STAT ABGs for Acute Respiratory Distress, STAT Potassium/Magnesium for any significant change in condition/rhythm, Ordered Communication CONSTANT Order, 09/18/2024 09:58:00 EDT, Constant Order, Current ACLS Provider may, Initiate [employer] Advanced Cardiac Life support Algorithm [...] Observation Outpatient with Observation Services, 1DOU, ANGELIA DO, REAGAN, Chest discomfort, lactic acidosis, generalized [...] : No Pacemaker Order Detail : 0 Apprentice Jockey Details Review Status : Initial Review Nurse Collects Blood Specimens : Nicole Camarena RN - 09/18/2024 11:32 EDT Normal [facility] Comment on above: Order Comment: Order entered secondary to admission PT INRon 09-18-2024 INR Coag (PPP) [Relative time] 1.4 {INR} Normal [facility] Comment on above: Order Comment: was n ot able to obtain blue top with first stick, pt would not let me stick twice. notified CRISTINE Kowalski 09/17/2024 23:15:27 EDT AJ Result Comment: INR Reference Range: Normal reference range for INR on patients not on anticoagulant therapy: 0.9-1.1 General therapeutic range for patients on anticoagulant therapy: 2.0-3.5 Performed By: #### 1 84127, 255806, 635222, 129616, 039523, 670544 #### [facility] [address] [place] [address] Event Marketing Intern: Woody Leyva MD Protime Patient 15.9 seconds High 9.8-12.4 [facility] Comment on above: Order Comment: was n ot able to obtain blue top with first stick, pt would not let me stick twice. notified RN Dex 09/17/2024 23:15:27 EDT AJ Performed By: #### 1 89010, 701513, 556879, 833518, 484666, 030052 #### [facility] [address] [place] [address] Event Marketing Intern: Woody Leyva MD Progress Note-Physicianon Progress Note-Physician Patient: CARLO MEDINA Age: 44 years Sex: Male : 1980 Associated Diagnoses: None Author: KARINA BELCHER CNP 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 notified by RN that pt refuses both Covid and Influenza A/B swabs. Attending made aware. Normal [facility] TROPONIN HS 2HRon 09-18-2024 Delta Troponin 2 Hr 0 pg/mL Normal 0-14 [facility] Comment on above: Result Comment: The term acute myocardial infarction should be used when there is acute myocardial injury with clinical evidence of acute myocardial ischemia and the rise or fall of serial Troponin HS values (delta troponin) greater than or equal to 15 pg/mL with at least one Troponin HS value above the 99th percentile reference range Performed By: #### 1 [id number], [id number], [id number] #### [facility] [address] [place] [address] Event Marketing Intern: Woody Leyva MD Troponin HS 2 Hr 34 pg/mL Normal 3-53 [facility] Comment on above: Result Comment: Spec imens from some individuals with pathologically high gamma globulin levels may demonstrate depressed troponin values Performed By: #### 1 59624, 333691, [id number] #### [facility] [address] [place] [address] Event Marketing Intern: Wooyd Leyva MD TROPONIN HS 6HRon 09-18-2024 Delta Troponin 6 Hr 3 pg/mL Normal 0-14 [facility] Comment on above: Order Comment: 6hr [...] percentile reference range Performed By: #### 1 56870, 322323, [id number] #### [facility] [address] [place] [address] Event Marketing Intern: Woody Leyva MD Troponin HS 6 Hr 31 pg/mL Normal 3-53 [facility] Comment on above: Order Comment: 6hr t roph is due @ 0509 from baseline draw 09/18/2024 03:05:57 EDT AJ Result Comment: Spec imens from some individuals with pathologically high gamma globulin levels may demonstrate depressed troponin values Performed By: #### 1 75257, [id number], [id number] #### [facility] [address] [place] [address] Event Marketing Intern: Woody Leyva MD AUTO DIFFon 09-17-2024 Baso Count 0.05 x1000 Normal 0.00-0.20 [facility] Comment on above: Performed By: #### 7 [id number] #### [facility] [address] [place] [address] Event Marketing Intern: Woody Leyva MD Basos % 0.6 % Normal [facility] Comment on above: Performed By: #### 7 [id number] #### [facility] [address] [place] [address] Event Marketing Intern: Woody Leyva MD Eos Count 0.02 x1000 Normal 0.00-0.50 [facility] Comment on above: Performed By: #### 7 [id number] #### [facility] [address] [place] [address] Event Marketing Intern: Woody Leyva MD Eosinophils/100 WBC (Bld) 0.2 % Normal [facility] Comment on above: Performed By: #### 7 [id number] #### [facility] [address] [place] [address] Event Marketing Intern: Woody Leyva MD Lymph Count 2.16 x1000 Normal 1.20-4.80 [facility] Comment on above: Performed By: #### 7 [id number] #### [facility] [address] [place] [address] Event Marketing Intern: Woody Leyva MD Lymphocytes/100 WBC (Bld) 29.0 % Normal [facility] Comment on above: Performed By: #### 7 [id number] #### [facility] [address] [place] [address] Event Marketing Intern: Woody Leyva MD [place] Count 0.50 x1000 Normal 0.10-1.00 [facility] Comment on above: Performed By: #### 7 [id number] #### [facility] [address] [place] [address] Event Marketing Intern: Woody Leyva MD Monocytes/100 WBC (Bld) 6.7 % Normal [facility] Comment on above: Performed By: #### 7 [id number] #### [facility] [address] [place] [address] Event Marketing Intern: Woody Leyva MD Neutrophil Count (ANC) 4.72 x1000 Normal 1.40-8.80 [facility] Comment on above: Performed By: #### 7 [id number] #### [facility] [address] [place] [address] Event Marketing Intern: Woody Leyva MD Neutrophils/100 WBC (Bld) 63.4 % Normal [facility] Comment on above: Performed By: #### 7 [id number] #### [facility] [address] [place], [place] [phone] Event Marketing Intern: Woody Leyva MD Red Blood Cell Morphology See Notes Abnormal [facility] Comment on above: Result Comment: Macr ocytosis 1+ Anisocytosis 1+ Performed By: #### 7 [id number] #### [facility] [address] [place] [address] Event Marketing Intern: Woody Leyva MD Addendum Noteon 09-17-2024 Business Banking Sales Assistant Authentication Interface Message Text Addended by: EVA ISAACS on: 09/17/2024 04:17 PM Modules accepted: Orders Normal [facility] CNOVon 09-17-2024 CN Office Visit ([facility] ) CARLO MEDINA ([id number]) 1980 M Date Time Provider Department 09/17/24 5:40 PM KING MEDINA [facility] During your visit today, we recorded the following information about you: Pulse Respiration Blood pressure 109/minute 16/minute 108/85 King Medina DO 09/17/2024 6:40 PM Signed [facility] Subjective Carlo Medina is a 44 [...] CHF, cardiac event that appears to be MT, though Patient denies MT. Recently was hospitalized with kidney failure at [facility] and discharged ~5 days ago. Has had [...] (primary diagnosis) Given hx, symptoms, EMS called. [facility] arrived within minutes to take Patient to ED. Patient appears stable upon leaving [facility] for ED via EMS. - [...] records: Multiple admissions for CHF, Kidney failure, MT recently Differential Diagnoses - Concern for cardiac, dehydration, kidney issues is more likely for the following reason(s): suggested by HANDP Contributing Factors Chronic conditions affecting care: CHF, MT, Kidney Disease Chronic conditions addressed by: CHF, MT, Kidney disease - co-morbidities/risk factors. Disposition The patient was other (comment) (ED via EMS). Pamela Cueto LPN 09/17/2024 6:40 PM Signed [facility] and Remote Sites Emergency Response Form. NOT TO BE USED AT [facility] Complete this report when the Emergency Medical Response is activated (911 calls/EmergencyTransp ort to the ED) or when a Code Sheet is utilized in the care of a patient (i.e., ASC) Date of the Event: [id number] (Must provide Value) Time of the Event:5:43pm (Must provide Value) Was emergency response activated? (Local EMS/Emergency Department) YES (Must provide Value) Location of the Incident:[facility] ([facility]) (Must provide Value) Reason/Chief Complaint for Emergency Call (Check all that apply): Chest Pain/Pressure (Must provide Value) (more content not included)... Normal [facility] COMPMETAon 09-17-2024 Albumin [Mass/Vol] 3.1 g/dL Low 3.4-5.0 [facility] Comment on above: Performed By: #### 1 52673, 941089, 920747, 194485, 055321, 097099 #### [facility] [address] [place] [address] Event Marketing Intern: Woody Leyva MD Albumin/Globulin [Mass ratio] 1.0 {ratio} Normal [facility] Comment on above: Performed By: #### 1 03074, 406243, 999156, 267372, 771994, 242983 #### [facility] [address] [place] [address] Event Marketing Intern: Woody Leyva MD Alk Phos 219 unit/L High 45-117 [facility] Comment on above: Performed By: #### 1 67091, 680857, 688111, 691620, 430439, 583164 #### [facility] [address] [place] [address] Event Marketing Intern: Woody Leyva MD Bilirubin [Mass/Vol] 4.40 mg/dL High 0.30-1.20 [facility] Comment on above: Result Comment: Use of this assay is not recommended for patients undergoing treatment with eltrombopag due to the potential for falsely elevated results. Performed By: #### 1 85322, 926818, 044232, 132070, 855559, 939710 #### [facility] [address] [place] [address] Event Marketing Intern: Woody Leyva MD Calcium [Mass/Vol] 9.3 mg/dL Normal 8.7-10.4 [facility] Comment on above: Performed By: #### 1 35107, 829209, 436482, 044316, 122206, 762792 #### [facility] [address] [place] [address]759 Event Marketing Intern: Woody Leyva MD Chloride [Moles/Vol] 100 mmol/L Normal 98-107 [facility] Comment on above: Performed By: #### 1 32391, 447620, 889885, 114124, 696848, 072931 #### [facility] [address] [place] [address] Event Marketing Intern: Woody Leyva MD CO2 [Moles/Vol] 25.0 mmol/L Normal 20.0-31.0 [facility] Comment on above: Performed By: #### 1 65863, 514877, 065954, 128173, 646398, 347935 #### [facility] [address] [place] [address]10 Event Marketing Intern: Woody Leyva MD Creatinine [Mass/Vol] 2.0 mg/dL High 0.6-1.1 [facility] Comment on above: Performed By: #### 1 89498, 758111, 591741, 030677, 250533, 324707 #### [facility] [address] [place] [address] 6[address]32 Event Marketing Intern: Woody Leyva MD GFR AA 44 [facility] Comment on above: Result Comment: Afri can Ethiopian GFR Calc Medical judgement is necessary to [...] for drug dosing. Performed By: #### 1 57162, 128897, 809902, 138558, 857905, 277487 #### [facility] [address] [place] [address] 18448 Event Marketing Intern: Woody Leyva MD Globulin (S) [Mass/Vol] 3.2 g/dL [facility] Comment on above: Performed By: #### 1 81922, 251098, 159706, 301627, 401679, 555709 #### [facility] [address] [place] [address] Event Marketing Intern: Woody Leyva MD Glomerular Filtration Rate 36 mL/min/1.73m? Normal [facility] Comment on above: Result Comment: Non- GFR [...] for drug dosing. Performed By: #### 1 41923, 719035, 450462, 321001, 060553, 597189 #### [facility] [address] [place] [address]60 Event Marketing Intern: Woody Leyva MD Glucose [Mass/Vol] 99 mg/dL Normal 74-106 [facility] Comment on above: Performed By: #### 1 20145, 003885, 479993, 366462, 072112, 094016 #### [facility] [address] [place] [address] 59206 Event Marketing Intern: Woody Leyva MD GOT 28 unit/L Normal 15-37 [facility] Comment on above: Performed By: #### 1 59796, 034147, 707134, 547549, 751077, 033490 #### [facility] [address] [place] [address] 84860 Event Marketing Intern: Woody Leyva MD GPT 45 unit/L Normal 10-49 [facility] Comment on above: Performed By: #### 1 14798, 624100, 402429, 366901, 199875, 935317 #### [facility] [address] [place] [address] 88514 Event Marketing Intern: Woody Leyva MD Osmolality [Osmolality] 292 mosm/kg Normal 275-295 [facility] Comment on above: Performed By: #### 1 64321, 390871, 200243, 184119, 190118, 927853 #### [facility] [address] [place] [address] 49507 Event Marketing Intern: Woody Leyva MD Potassium [Moles/Vol] 3.6 mmol/L Normal 3.5-5.1 [facility] Comment on above: Result Comment: Spec imen slightly hemolyzed. Results may be affected. 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 security engineer Performed By: #### 1 34526, 167583, 324379, 026965, 203829, 556360 #### [facility] [address] [place] [address] 65651 Event Marketing Intern: Woody Leyva MD Sodium [Moles/Vol] 141 mmol/L Normal 135-145 [facility] Comment on above: Performed By: #### 1 89261, 696620, 758814, 927853, 546284, 440136 #### [facility] [address] [place] [address] 27612 Event Marketing Intern: Woody Leyva MD Urea nitrogen [Mass/Vol] 43 mg/dL High 9-23 [facility] Comment on above: Result Comment: - Ve nipuncture should occur prior to N-Acetyl Cysteine (NAC) or Metamizole (Sulpyrine) administration due to the potential for falsely depressed results. - Blood samples from some patients with monoclonal gammopathies may produce falsely elevated results Performed By: #### 1 27609, 341774, 115950, 131653, 573177, 726342 #### [facility] [address] [place] [address] 57279 Event Marketing Intern: Woody Leyva MD Urea nitrogen/Creatinine [Mass ratio] 21.5 mg/mg Normal [facility] Comment on above: Performed By: #### 1 44610, 177693, 414877, 954486, 872222, 925524 #### [facility] [address] [place] [address] 44534 Event Marketing Intern: Woody Leyva MD HEMOon 09-17-2024 DIFF? No Normal [facility] Comment on above: Performed By: #### 7 [id number] #### [facility] [address] [place], [place] [address] Event Marketing Intern: Woody Leyva MD Erythrocyte distribution width (RBC) [Ratio] 17.7 % High 11.5-14.5 [facility] Comment on above: Performed By: #### 7 [id number] #### [facility] [address] [place], [place] [address] Event Marketing Intern: Woody Leyva MD Hematocrit (Bld) [Volume fraction] 46.5 % Normal 41.0-52.0 [facility] Comment on above: Performed By: #### 7 [id number] #### [facility] [address] [place], [place] [address] Event Marketing Intern: Woody Leyva MD Hemoglobin (Bld) [Mass/Vol] 15.1 g/dL Normal 13.5-17.5 [facility] Comment on above: Performed By: #### 7 [id number] #### [facility] [address] [place], [place] [address] Event Marketing Intern: Woody Leyva MD Instr WBC 7.5 Normal [facility] Comment on above: Performed By: #### 7 [id number] #### [facility] [address] [place], [place] [address] Event Marketing Intern: Woody Leyva MD MCH (RBC) [Entitic mass] 34.4 pg High 27.0-34.0 [facility] Comment on above: Performed By: #### 7 [id number] #### [facility] [address] [place] [address] Event Marketing Intern: Woody Leyva MD MCHC (RBC) [Mass/Vol] 32.4 g/dL Normal 32.0-37.0 [facility] Comment on above: Performed By: #### 7 [id number] #### [facility] [address] [place] [address] 21119 Event Marketing Intern: Woody Leyva MD MCV (RBC) [Entitic vol] 106.1 fL High 80.0-100.0 [facility] Comment on above: Performed By: #### 7 [id number] #### [facility] [address] [place] [address] 88975 Event Marketing Intern: Woody Leyva MD MDW 20.98 High 13.98-20.00 [facility] Comment on above: Result Comment: MDW Interpretation: [...] risk of Sepsis. Performed By: #### 7 [id number] #### [facility] [address] [place] [address] 99729 Event Marketing Intern: Woody Leyva MD Nucleated RBC 0 /100WBC Normal [facility] Comment on above: Performed By: #### 7 [id number] #### [facility] [address] [place] [address] 56839 Event Marketing Intern: Woody Leyva MD Platelet 236 x10 Normal 150-450 [facility] Comment on above: Performed By: #### 7 [id number] #### [facility] [address] [place] [address] 13706 Event Marketing Intern: Woody Leyva MD Platelet mean volume (Bld) [Entitic vol] 8.4 fL Normal 7.4-10.4 [facility] Comment on above: Performed By: #### 7 [id number] #### [facility] [address] [place] [address] 62614 Event Marketing Intern: Woody Leyva MD RBC 4.38 x10 Low 4.70-6.10 [facility] Comment on above: Result Comment: Note : RBC morphology is normal unless otherwise stated. Evaluation performed only if differential is requested. Performed By: #### 7 [id number] #### [facility] [address] [address] Event Marketing Intern: Woody Leyva MD WBC 7.5 x10 Normal 4.5-11.0 [facility] Comment on above: Performed By: #### 7 [id number] #### [facility] [address] [place] [address]100 Event Marketing Intern: Woody Leyva MD LACTATEon 09-17-2024 Lactate [Moles/Vol] 3.2 mmol/L High 0.5-2.2 [facility] Comment on above: Result Comment: Spec imen icteric. Results may be affected. Venipuncture should occur prior to N-Acetyl Cysteine (NAC) administration due to the potential for falsely depressed results Performed By: #### 1 75844, 126248, 1084984 #### [facility] [address] [place] [address] 69164 Event Marketing Intern: oWody Leyva MD LIPon 09-17-2024 Lipase [Catalytic activity/Vol] 20 U/L Normal 12-53 [facility] Comment on above: Performed By: #### 1 51290, 422300, 554618, 333152, 205338, 409865 #### [facility] [address] [place] [address] 97489 Event Marketing Intern: Woody Leyva MD MG LEVELon 09-17-2024 Magnesium [Mass/Vol] 2.2 mg/dL Normal 1.6-2.6 [facility] Comment on above: Performed By: #### 1 26120, 602779, 481709, 835882, 625024, 273842 #### [facility] [address] [place] [address] [phone] Event Marketing Intern: Woody Leyva MD Patient Instructionson 09-17 Business Banking Sales Assistant Authentication Interface Message Text Normal [facility] Progress Noteson 09-17-2024 Business Banking Sales Assistant Authentication Interface Message Text Identification was verified by patient verbalizing his name and date of . Normal [facility] Business Banking Sales Assistant Authentication Interface Message Text Normal [facility] SED RATEon 09-17-2024 Sed Rate Westergren 9 mm/hr Normal 0-15 [facility] Comment on above: Performed By: #### 7 [id number] #### [facility] [address] [place], [place] [address] Event Marketing Intern: Woody Leyva MD THY GPon 09-17-2024 Free T4 [Mass/Vol] 1.80 ng/dL High 0.89-1.76 [facility] Comment on above: Result Comment: - Th e anticonvulsant drug phenytoin may interfere with total and free T4 levels due to competition for TBG binding sites - Free T4 values may be decreased in patients with non-thyroidal conditions and in patients taking carbamazepine Performed By: #### 1 42907, 175816, 096856, 113423, 886910, 178245 #### [facility] [address] [place], [place] [address] Event Marketing Intern: Woody Leyva MD TSH Qn 0.29 m[IU]/L Low 0.55-4.78 [facility] Comment on above: Result Comment: - Do [...] Reference: [email or web address] (03/2023) Performed By: #### 1 89493, 183348, 203140, 377107, 385385, 447795 #### [facility] [address] [place], [place] [address] Event Marketing Intern: Woody Leyva MD TROPONIN HS 0HRon 09-17-2024 Troponin HS 0 Hr 34 pg/mL Normal 3-53 [facility] Comment on above: Result Comment: Spec imens from some individuals with pathologically high gamma globulin levels may demonstrate depressed troponin values Performed By: #### 7 [id number] #### [facility] [place] [id number] Event Marketing Intern: Woody Leyva MD UAon 09-17-2024 Appearance, U Hazy Abnormal Clear [facility] Comment on above: Performed By: #### 7 [id number] #### [facility] [place] [address] Event Marketing Intern: Woody Leyva MD Bilirubin, U 0.5 mg/dl Abnormal Negative [facility] Comment on above: Result Comment: Bili waite, U: Initial positive urine bilirubin results are not confirmed. Interfering substances may include elevated urobilinogen. Trace = 0.5-1.0 mg/dL Small = 2.0-4.0 mg/dL Moderate = 6.0-8.0 mg/dL Large = 10 mg/dl and greater Performed By: #### 7 [id number] #### [facility] [address] [place] [address] Event Marketing Intern: Woody Leyva MD Blood, U Negative Normal Negative [facility] Comment on above: Result Comment: Bloo d, U: Trace = 0.03-0.05 mg/dL Small = 0.06-0.1 mg/dL Moderate = 0.2-0.5 mg/dL Large = 1.0 mg/dL and greater Performed By: #### 7 [id number] #### [facility] [address] [place] [address] 83655 Event Marketing Intern: Woody Leyva MD Color, U Dark-Yellow Normal Yellow [facility] Comment on above: Performed By: #### 7 [id number] #### [facility] [address] [place] [address] 66966 Event Marketing Intern: Woody Leyva MD Glucose Qual, U Negative Normal Negative [facility] Comment on above: Performed By: #### 7 [id number] #### [facility] [address] [place], [place] [address] Event Marketing Intern: Woody Leyva MD Hyaline Cast 2 #/HPF Normal [facility] Comment on above: Performed By: #### 7 [id number] #### [facility] [place] [id number] Event Marketing Intern: Woody Leyva MD Ketones, U Negative Normal Negative [facility] Comment on above: Performed By: #### 7 [id number] #### [facility] [place] [address] Event Marketing Intern: Woody Leyva MD Leukocyte Esterase, U Negative Normal Negative [facility] Comment on above: Result Comment: Leuk ocyte Esterase, U: Trace = 25 Nicky/uL Small = 75 Nicky/uL Moderate = 250 Nicky/uL Large = 500 Nicky/uL and greater Performed By: #### 7 [id number] #### [facility] [address] [place] [address] 02743 Event Marketing Intern: Woody Leyva MD Mucous, U Occasional Normal [facility] Comment on above: Performed By: #### 7 [id number] #### [facility] [address] [place] [address] 76028 Event Marketing Intern: Woody Leyva MD Nitrite, U Negative Normal Negative [facility] Comment on above: Performed By: #### 7 [id number] #### [facility] [address] [place] [address] 13845 Event Marketing Intern: Woody Leyva MD pH, U 5.5 Normal 4.5-8.0 [facility] Comment on above: Performed By: #### 7 [id number] #### [facility] [address] [place] [address] 37021 Event Marketing Intern: Woody Leyva MD Protein, U 100 mg/dl Abnormal Negative [facility] Comment on above: Performed By: #### 7 [id number] #### [facility] [address] [place], [place] [address] Event Marketing Intern: Woody Leyva MD Specific [place], U 1.032 Normal 1.001-1.035 [facility] Comment on above: Performed By: #### 7 [id number] #### [facility] [address] [place], [place] [address] Event Marketing Intern: Woody Leyva MD U MICRO Indicated Normal [facility] Comment on above: Performed By: #### 7 [id number] #### [facility] [address] [place], [place] [address] Event Marketing Intern: Woody Leyva MD U SPERM Present Normal [facility] Comment on above: Performed By: #### 7 [id number] #### [facility] [address] [place] [address] 96652 Event Marketing Intern: Woody Leyva MD Urobilinogen Qual, U 4 mg/dl Abnormal < 2 mg/dl [facility] Comment on above: Result Comment: Urob ilinogen, U: EU/dl and mg/dl are equivalent units. Performed By: #### 7 [id number] #### [facility] [address] [place], [place] [address] Event Marketing Intern: Woody Leyva MD WBC/HPF, U 1 #/HPF Normal 0-5 [facility] Comment on above: Performed By: #### 7 [id number] #### [facility] [id number] [place] [address] Event Marketing Intern: Woody Leyva MD XR CHEST PORTABLEon 09-18-19 [...] Jr., MD Signed Out: 09/17/24 20:07:50 Normal [facility] Progress Noteson 09-13-2024 Business Banking Sales Assistant Authentication Interface Message Text Normal [facility] Progress Noteson 09-11-2024 [employer] Banking Sales Assistant Authentication Interface Message Text Normal [facility] [employer] Sales Assistant Authentication Interface Message Text Normal [facility] Progress Notes - NoteWritero n 09-11-2024 [employer] Banking Sales Assistant Authentication Interface Message Text Normal [facility] LACTIC ACIDon 09-10-2024 CR LACT 2.6 mmol/L High 0.5-1.6 [facility] Comment on above: Order Comment: This test was developed, and its performance characteristics determined by the Department of Pathology of [facility]. It has not been cleared or approved by the FDA. This test is used for clinical purposes only. Performed By: #### L ACT ####[facility] [id number] [place], [address] Progress Noteson 09-10-2024 Business Banking Sales Assistant Authentication Interface Message Text Normal [facility] [employer] Sales Assistant Authentication Interface Message Text Normal [facility] Progress Notes - NoteWritero n 09-10-2024 [employer]ing Sales Assistant Authentication Interface Message Text Normal [facility] BASIC METABOLIC PANELon 08-28 Anion gap [Moles/Vol] 15 mmol/L Normal 10-20 [facility] Comment on above: Performed By: #### H TICO MG, CH8 ####S PATHOLOGY [id number] [place], [place], Calcium [Mass/Vol] 7.7 mg/dL Low 8.6-10.3 [facility] Comment on above: Performed By: #### H EPAMISAEL MG, CH8 ####[facility] [id number] [place], [place], Chloride [Moles/Vol] 97 mmol/L Low 98-107 [facility] Comment on above: Performed By: #### H TICO MG, CH8 ####[facility] [id number] [place], CO2 [Moles/Vol] 31 mmol/L Normal 21-31 [facility] Comment on above: Performed By: #### H TICO MG, CH8 ####S PATHOLOGY [id number] [place], Creatinine [Mass/Vol] 1.81 mg/dL High 0.70-1.30 [facility] Comment on above: Performed By: #### H TICO MG, CH8 ####S PATHOLOGY [id number] [place], ESTIMATED GFR (CKD-EPI) 46 mL/min/1.73sqm Low >=60 [facility] Comment on above: Result Comment: 2020 [...] Inclusion of Race in Diagnosing Kidney Disease. Ethiopian Journal of Kidney Diseases 2021;79(2):268-88.e1.2. N Engl J Med 2020 Vol. 385 Issue 19 Pages 0092-2562 Performed By: #### MG NEPTALI, CH8 ####[facility] PATHOLOGY [id number] [place], Glucose [Mass/Vol] 110 mg/dL High 74-109 [facility] Comment on above: Performed By: #### MG NEPTALI, CH8 ####[facility] PATHOLOGY [id number] [place], Potassium [Moles/Vol] 3.9 mmol/L Normal 3.5-5.0 [facility] Comment on above: Performed By: #### MG NEPTALI, CH8 ####[facility] PATHOLOGY [id number] [place] [address], Sodium [Moles/Vol] 139 mmol/L Normal 136-145 [facility] Comment on above: Performed By: #### MG NEPTALI, CH8 ####[facility] PATHOLOGY [id number] [place] [address], Urea nitrogen [Mass/Vol] 36 mg/dL High 7-25 [facility] Comment on above: Performed By: #### MG NEPTALI, CH8 ####[facility] PATHOLOGY [id number] [place] [address], CBC WITH DIFFERENTIALon 08-28 Basophils (Bld) [#/Vol] 0.07 10*3/uL Normal 0.00-0.20 [facility] Comment on above: Performed By: #### C BCDSAT ####[facility] PATHOLOGY [id number] [place], Basophils/100 WBC (Bld) 0.8 % Normal <=1.9 [facility] Comment on above: Performed By: #### Kelly BCDSAT ####[facility] PATHOLOGY [id number] [place] [address], Eosinophils (Bld) [#/Vol] 0.09 10*3/uL Normal 0.00-0.70 [facility] Comment on above: Performed By: #### Kelly BCDSAT ####S PATHOLOGY [id number] [place], Eosinophils/100 WBC (Bld) 1.0 % Normal 0.1-4.0 [facility] Comment on above: Performed By: #### C GARRETTDSAT ####[facility] PATHOLOGY [id number] [place], Erythrocyte distribution width (RBC) [Ratio] 13.8 % Normal 11.5-14.5 [facility] Comment on above: Performed By: #### C GARRETTDSAT ####[facility] PATHOLOGY [id number] [place], Hematocrit (Bld) [Volume fraction] 43.5 % Normal 41.0-53.0 [facility] Comment on above: Performed By: #### C BCDSAT ####[facility] PATHOLOGY [id number] [place] [address], Hemoglobin (Bld) [Mass/Vol] 14.7 g/dL Normal 13.9-16.3 [facility] Comment on above: Performed By: #### C GARRETTDSAT ####[facility] PATHOLOGY [id number] [place], Lymphocytes (Bld) [#/Vol] 2.51 10*3/uL Normal 1.00-4.80 [facility] Comment on above: Performed By: #### C BCDSAT ####[facility] PATHOLOGY [id number] [place], Lymphocytes/100 WBC (Bld) 28.5 % Normal 24.0-44.0 [facility] Comment on above: Performed By: #### C BCDSAT ####[facility] PATHOLOGY [id number] [place], MCH (RBC) [Entitic mass] 34.4 pg High 26.0-34.0 [facility] Comment on above: Performed By: #### C BCDSAT ####[facility] PATHOLOGY [id number] [place], MCHC (RBC) [Mass/Vol] 33.9 g/dL Normal 32.0-35.9 [facility] Comment on above: Performed By: #### C BCDSAT ####[facility] PATHOLOGY [id number] [place], MCV (RBC) [Entitic vol] 102 fL High 80-100 [facility] Comment on above: Performed By: #### C BCDSAT ####[facility] PATHOLOGY [id number] [place], Monocytes (Bld) [#/Vol] 0.69 10*3/uL Normal 0.20-1.00 [facility] Comment on above: Performed By: #### C BCDSAT ####[facility] PATHOLOGY [id number] [place], Monocytes/100 WBC (Bld) 7.8 % Normal 2.0-11.0 [facility] Comment on above: Performed By: #### C BCDSAT ####[facility] PATHOLOGY [id number] [place], Neutrophils (Bld) [#/Vol] 5.46 10*3/uL Normal 1.50-8.00 [facility] Comment on above: Performed By: #### C BCDSAT ####[facility] PATHOLOGY [id number] [place], Neutrophils/100 WBC (Bld) 61.9 % Normal 31.0-76.0 [facility] Comment on above: Performed By: #### C BCDSAT ####[facility] PATHOLOGY [id number] [place], Platelet mean volume (Bld) [Entitic vol] 7.7 fL Normal 7.5-11.2 [facility] Comment on above: Performed By: #### C BCDSAT ####[facility] PATHOLOGY [id number] [place], Platelets (Bld) [#/Vol] 278 10*3/uL Normal 150-400 [facility] Comment on above: Performed By: #### C BCDSAT ####S PATHOLOGY [id number] [place], RBC (Bld) [#/Vol] 4.28 10*6/uL Low 4.50-5.90 [facility] Comment on above: Performed By: #### C BCDSAT ####S PATHOLOGY [id number] [place], WBC (Bld) [#/Vol] 8.8 10*3/uL Normal 4.5-11.5 [facility] Comment on above: Performed By: #### C BCDSAT ####[facility] PATHOLOGY [id number] [place], HEPATIC FUNCTION PANELon Albumin [Mass/Vol] 3.6 g/dL Normal 3.5-5.7 [facility] Comment on above: Performed By: #### MG NEPTALI, CH8 ####[facility] PATHOLOGY [id number] [place], ALK 202 IU/L High 34-104 [facility] Comment on above: Performed By: #### MG NEPTALI, CH8 ####[facility] PATHOLOGY [id number] [place] [address], ALT [Catalytic activity/Vol] 37 U/L Normal 7-52 [facility] Comment on above: Performed By: #### MG NEPTALI, CH8 ####[facility] PATHOLOGY [id number] [place], AST [Catalytic activity/Vol] 24 U/L Normal 13-39 [facility] Comment on above: Performed By: #### MG NEPTALI, CH8 ####S PATHOLOGY [id number] [place], Bilirubin [Mass/Vol] 2.2 mg/dL High 0.3-1.0 [facility] Comment on above: Performed By: ###MG MERLINE, CH8 ####S PATHOLOGY [id number] [place], Bilirubin.direct [Mass/Vol] 0.79 mg/dL High 0.03-0.18 [facility] Comment on above: Performed By: #### MG NEPTALI, CH8 ####[facility] PATHOLOGY [id number] [place], Protein [Mass/Vol] 6.1 g/dL Normal 6.0-8.3 [facility] Comment on above: Performed By: #### H MG TICO, CH8 ####[facility] PATHOLOGY [id number] [place], MAGNESIUMon 09-09-2024 Magnesium [Mass/Vol] 1.5 mg/dL Low 1.9-2.7 [facility] Comment on above: Performed By: #### H MG TICO, FERNANDO8 ####[facility] PATHOLOGY [id number] [place], PROTHROMBIN TIME AND INRon 0 09-09-2024 INR Coag (PPP) [Relative time] 1.24 {INR} High 0.90-1.10 [facility] Comment on above: Performed By: #### P T ####[facility] PATHOLOGY [id number] [place], PT Coag (PPP) [Time] 13.9 s High 9.7-12.9 [facility] Comment on above: Performed By: #### P T ####[facility] PATHOLOGY [id number] [place], Progress Noteson 09-09-2024 Business Banking Sales Assistant Authentication Interface Message Text Normal [facility] [employer] Bank[employer] Sales Assistant Authentication Interface Message Text Normal [facility] Progress Notes - NoteWritero n 09-09-2024 [employer]ing Sales Assistant Authentication Interface Message Text Pt had 5 beats of NSVT on telemetry. When assessed, pt was laying supine with no complaints of being symptomatic. Chrissy DO notified. No further orders at this time. Normal [facility] BASIC METABOLIC PANELon 08-28 Anion gap [Moles/Vol] 17 mmol/L Normal 10-20 [facility] Comment on above: Performed By: #### H MG TICO, CH8 ####[facility] PATHOLOGY [id number] [place], Calcium [Mass/Vol] 7.9 mg/dL Low 8.6-10.3 [facility] Comment on above: Performed By: #### H TICO MG, CH8 ####[facility] [id number] [place], Chloride [Moles/Vol] 96 mmol/L Low 98-107 [facility] Comment on above: Performed By: #### H TICO MG, CH8 ####[facility] [id number] [place], CO2 [Moles/Vol] 32 mmol/L High 21-31 [facility] Comment on above: Performed By: #### H TICO MG, CH8 ####[facility] [id number] [place], Creatinine [Mass/Vol] 1.68 mg/dL High 0.70-1.30 [facility] Comment on above: Performed By: #### H TICO MG, CH8 ####S PATHOLOGY [id number] [place], ESTIMATED GFR (CKD-EPI) 50 mL/min/1.73sqm Low >=60 [facility] Comment on above: Result Comment: [...] Inclusion of Race in Diagnosing Kidney Disease. Ethiopian Journal of Kidney Diseases 2021;79(2):268-88.e1.2. N Engl J Med 2020 Vol. 385 Issue 19 Pages 3013-9414 Performed By: #### H TICO MG, CH8 ####[facility] [id number] [place], Glucose [Mass/Vol] 101 mg/dL Normal 74-109 [facility] Comment on above: Performed By: #### H TICO MG, CH8 ####[facility] SCPYGVKPAR3700 [place], Potassium [Moles/Vol] 4.1 mmol/L Normal 3.5-5.0 [facility] Comment on above: Performed By: #### H MG TICO, FERNANDO8 ####[facility] PATHOLOGY [id number] [place], Sodium [Moles/Vol] 141 mmol/L Normal 136-145 [facility] Comment on above: Performed By: #### H MG TICO, FERNANDO8 ####[facility] PATHOLOGY [id number] [place], Urea nitrogen [Mass/Vol] 34 mg/dL High 7-25 [facility] Comment on above: Performed By: #### H MG TICO, AUGUSTO ####[facility] PATHOLOGY [id number] [place] [address], CBC WITH DIFFERENTIALon 08-28 Basophils (Bld) [#/Vol] 0.06 10*3/uL Normal 0.00-0.20 [facility] Comment on above: Performed By: #### C BCDSAT ####[facility] PATHOLOGY [id number] [place], Basophils/100 WBC (Bld) 0.7 % Normal <=1.9 [facility] Comment on above: Performed By: #### C BCDSAT ####[facility] PATHOLOGY [id number] [place], Eosinophils (Bld) [#/Vol] 0.07 10*3/uL Normal 0.00-0.70 [facility] Comment on above: Performed By: #### C BCDSAT ####S PATHOLOGY PZUBPIAPDS2711 [place], Eosinophils/100 WBC (Bld) 0.8 % Normal 0.1-4.0 [facility] Comment on above: Performed By: #### C BCDSAT ####S PATHOLOGY [id number] [place], Erythrocyte distribution width (RBC) [Ratio] 13.6 % Normal 11.5-14.5 [facility] Comment on above: Performed By: #### C BCDSAT ####[facility] PATHOLOGY [id number] [place], Hematocrit (Bld) [Volume fraction] 43.0 % Normal 41.0-53.0 [facility] Comment on above: Performed By: #### C BCDSAT ####[facility] PATHOLOGY [id number] [place], Hemoglobin (Bld) [Mass/Vol] 14.4 g/dL Normal 13.9-16.3 [facility] Comment on above: Performed By: #### C BCDSAT ####[facility] PATHOLOGY [id number] [place], Lymphocytes (Bld) [#/Vol] 2.29 10*3/uL Normal 1.00-4.80 [facility] Comment on above: Performed By: #### C BCDSAT ####[facility] PATHOLOGY CORLESWJSN6503 [place], Lymphocytes/100 WBC (Bld) 27.3 % Normal 24.0-44.0 [facility] Comment on above: Performed By: #### C BCDSAT ####[facility] PATHOLOGY [id number] [place], MCH (RBC) [Entitic mass] 34.4 pg High 26.0-34.0 [facility] Comment on above: Performed By: #### C BCDSAT ####[facility] PATHOLOGY [id number] [place], MCHC (RBC) [Mass/Vol] 33.4 g/dL Normal 32.0-35.9 [facility] Comment on above: Performed By: #### C BCDSAT ####[facility] PATHOLOGY [id number] [place], MCV (RBC) [Entitic vol] 103 fL High 80-100 [facility] Comment on above: Performed By: #### C BCDSAT ####[facility] PATHOLOGY [id number] [place], Monocytes (Bld) [#/Vol] 0.77 10*3/uL Normal 0.20-1.00 [facility] Comment on above: Performed By: #### C BCDSAT ####S PATHOLOGY DKYRHCHAPX1652 [place], Monocytes/100 WBC (Bld) 9.1 % Normal 2.0-11.0 [facility] Comment on above: Performed By: #### C BCDSAT ####[facility] PATHOLOGY [id number] [place], Neutrophils (Bld) [#/Vol] 5.21 10*3/uL Normal 1.50-8.00 [facility] Comment on above: Performed By: #### C BCDSAT ####[facility] PATHOLOGY [id number] [place], Neutrophils/100 WBC (Bld) 62.1 % Normal 31.0-76.0 [facility] Comment on above: Performed By: #### C BCDSAT ####[facility] PATHOLOGY [id number] [place], Platelet mean volume (Bld) [Entitic vol] 8.1 fL Normal 7.5-11.2 [facility] Comment on above: Performed By: #### C BCDSAT ####[facility] PATHOLOGY [id number] [place] [address], Platelets (Bld) [#/Vol] 278 10*3/uL Normal 150-400 [facility] Comment on above: Performed By: #### C BCDSAT ####S PATHOLOGY VSVKDPSWOZ4698 [place], RBC (Bld) [#/Vol] 4.19 10*6/uL Low 4.50-5.90 [facility] Comment on above: Performed By: #### C BCDSAT ####S PATHOLOGY GJUZCNXRSQ8780 [place], WBC (Bld) [#/Vol] 8.4 10*3/uL Normal 4.5-11.5 [facility] Comment on above: Performed By: #### C BCDSAT ####S PATHOLOGY [id number] [place], [place], H AND Timo 09-08-2024 Business Banking Sales Assistant Authentication Interface Message Text Normal [facility] HEPATIC FUNCTION PANELon Albumin [Mass/Vol] 3.7 g/dL Normal 3.5-5.7 [facility] Comment on above: Performed By: #### Bonilla DOSHI MG, CH8 ####[facility] [id number] [place], ALK 247 IU/L High 34-104 [facility] Comment on above: Performed By: #### Bonilla DOSHI MG, CH8 ####[facility] [id number] [place], ALT [Catalytic activity/Vol] 42 U/L Normal 7-52 [facility] Comment on above: Performed By: #### Bonilla DOSHI MG, CH8 ####S PATHOLOGY [id number] [place], AST [Catalytic activity/Vol] 27 U/L Normal 13-39 [facility] Comment on above: Performed By: #### Bonilla DOSHI MG, CH8 ####[facility] [id number] [place], Bilirubin [Mass/Vol] 2.2 mg/dL High 0.3-1.0 [facility] Comment on above: Performed By: #### Bonilla DOSHI MG, CH8 ####[facility] GONKHXLZBS1483 [place], Bilirubin.direct [Mass/Vol] 0.85 mg/dL High 0.03-0.18 [facility] Comment on above: Performed By: #### Bonilla DOSHI MG, CH8 ####[facility] [id number] [place], Protein [Mass/Vol] 6.4 g/dL Normal 6.0-8.3 [facility] Comment on above: Performed By: #### Bonilla DOSHI MG, CH8 ####[facility] [id number] [place], LACTIC ACIDon 09-08-2024 CR LACT 2.6 mmol/L High 0.5-1.6 [facility] Comment on above: Order Comment: This test was developed, and its performance characteristics determined by the Department of Pathology of [facility]. It has not been cleared or approved by the FDA. This test is used for clinical purposes only. Performed By: #### L ACT ####[facility] PATHOLOGY THNAZIFIIT5918 [place], MAGNESIUMon 09-08-2024 Magnesium [Mass/Vol] 1.4 mg/dL Low 1.9-2.7 [facility] Comment on above: Performed By: #### H EPATIC, MG, CH8 ####S PATHOLOGY AEXNIZILQO[address] [place] [address], PROTHROMBIN TIME AND INRon 0 09-08-2024 INR Coag (PPP) [Relative time] 1.21 {INR} High 0.90-1.10 [facility] Comment on above: Performed By: #### P T ####S PATHOLOGY [id number] [place], PT Coag (PPP) [Time] 13.5 s High 9.7-12.9 [facility] Comment on above: Performed By: #### P T ####[facility] PATHOLOGY [id number] [place], Progress Noteson 09-08-2024 Business Banking Sales Assistant Authentication Interface Message Text Pt had 5 beats of NSVT on telemetry. Pt observed laying down in bed, reports being asymptomatic. Chrissy DO notified. No further orders at this time. Normal [facility] Business Banking Sales Assistant Authentication Interface Message Text Normal [facility] Disruptive Behavior Progress Noteon 09-07-2024 Business Banking Sales Assistant Authentication Interface Message Text Normal [facility] Progress Noteson 09-07-2024 Business Banking Sales Assistant Authentication Interface Message Text Normal [facility] Business Banking Sales Assistant Authentication Interface Message Text Normal [facility] Transfer Noteon 09-07-2024 Business Banking Sales Assistant Authentication Interface Message Text Normal [facility] BASIC METABOLIC PANELon 08-28 Anion gap [Moles/Vol] 17 mmol/L Normal 10-20 [facility] Comment on above: Performed By: #### C H8, HEPATIC, MG ####[facility] [id number] [place], Calcium [Mass/Vol] 8.0 mg/dL Low 8.6-10.3 [facility] Comment on above: Performed By: #### C H8, HEPATIC, MG ####[facility] [id number] [place], Chloride [Moles/Vol] 96 mmol/L Low 98-107 [facility] Comment on above: Performed By: #### C H8, HEPATIC, MG ####[facility] TAUZYQGEPX1566 [place], CO2 [Moles/Vol] 29 mmol/L Normal 21-31 [facility] Comment on above: Performed By: #### C H8, HEPATIC, MG ####[facility] [id number] [place], Creatinine [Mass/Vol] 1.85 mg/dL High 0.70-1.30 [facility] Comment on above: Performed By: #### C H8, HEPATIC, MG ####[facility] [id number] [place], ESTIMATED GFR (CKD-EPI) 45 mL/min/1.73sqm Low >=60 [facility] Comment on above: Result Comment: 2020 [...] Inclusion of Race in Diagnosing Kidney Disease. [place]ian Journal of Kidney Diseases 2021;79(2):268-88.e1.2. N Engl J Med 2020 Vol. 385 Issue 19 Pages 4094-7040 Performed By: #### C H8, HEPATIC, MG ####[facility] [id number] [place], Glucose [Mass/Vol] 133 mg/dL High 74-109 [facility] Comment on above: Performed By: #### Kelly HGissel, HEPATIC, MG ####[facility] SFATSHZYCU0032 [place], Potassium [Moles/Vol] 3.9 mmol/L Normal 3.5-5.0 [facility] Comment on above: Performed By: #### Kelly HGissel, HEPATIC, MG ####[facility] [id number] [place], Sodium [Moles/Vol] 138 mmol/L Normal 136-145 [facility] Comment on above: Performed By: #### Kelly Simon, HEPATIC, MG ####[facility] [id number] [place], Urea nitrogen [Mass/Vol] 39 mg/dL High 7-25 [facility] Comment on above: Performed By: #### Kelly Simon, HEPATIC, MG ####[facility] [id number] [place], Anion gap [Moles/Vol] 17 mmol/L Normal 10-20 [facility] Comment on above: Performed By: #### Kelly Simon, HEPATIC, MG ####[facility] [id number] [place], Calcium [Mass/Vol] 8.2 mg/dL Low 8.6-10.3 [facility] Comment on above: Performed By: #### Kelly HGissel, HEPATIC, MG ####[facility] MIRAJSMADA6852 [place], Chloride [Moles/Vol] 98 mmol/L Normal 98-107 [facility] Comment on above: Performed By: #### Kelly HGissel, HEPATIC, MG ####[facility] [id number] [place], [place], CO2 [Moles/Vol] 29 mmol/L Normal 21-31 [facility] Comment on above: Performed By: #### Kelly H8, HEPATIC, MG ####[facility] [id number] [place], [place], Creatinine [Mass/Vol] 1.93 mg/dL High 0.70-1.30 The [facility] Comment on above: Performed By: #### Kelly Simon, HEPATIC, MG ####[facility] [id number] [place], ESTIMATED GFR (CKD-EPI) 43 mL/min/1.73sqm Low [...] Inclusion of Race in Diagnosing Kidney Disease. Ethiopian Journal of Kidney Diseases 2021;79(2):268-88.e1.2. N Engl J Med 1 Vol. 385 Issue 19 Pages 3825-0358 Performed By: #### Kelly Simon, HEPATIC, MG ####[facility] [id number] [place], [place], Glucose [Mass/Vol] 133 mg/dL High 74-109 [facility] Comment on above: Performed By: #### Kelly Simon, HEPATIC, MG ####[facility] [id number] [place], Potassium [Moles/Vol] 3.8 mmol/L Normal 3.5-5.0 [facility] Comment on above: Performed By: #### Kelly HGissel, HEPATIC, MG ####[facility] [id number] [place], Sodium [Moles/Vol] 140 mmol/L Normal 136-145 [facility] Comment on above: Performed By: #### Kelly H8, HEPATIC, MG ####[facility] [id number] [place], Urea nitrogen [Mass/Vol] 44 mg/dL High 7-25 [facility] Comment on above: Performed By: #### C H8, HEPATIC, MG ####[facility] [id number] [place], [place], CBC WITH DIFFERENTIALon 08-28 0-2024 Basophils (Bld) [#/Vol] 0.03 10*3/uL Normal 0.00-0.20 [facility] Comment on above: Performed By: #### C BCDSAT ####[facility] PATHOLOGY [id number] [place], Basophils/100 WBC (Bld) 0.3 % Normal <=1.9 [facility] Comment on above: Performed By: #### C BCDSAT ####[facility] PATHOLOGY [id number] [place] [address], Eosinophils (Bld) [#/Vol] 0.06 10*3/uL Normal 0.00-0.70 [facility] Comment on above: Performed By: #### C BCDSAT ####[facility] PATHOLOGY [id number] [place] [address], Eosinophils/100 WBC (Bld) 0.8 % Normal 0.1-4.0 [facility] Comment on above: Performed By: #### C BCDSAT ####[facility] PATHOLOGY [id number] [place] [address], Erythrocyte distribution width (RBC) [Ratio] 13.9 % Normal 11.5-14.5 [facility] Comment on above: Performed By: #### C BCDSAT ####[facility] PATHOLOGY [id number] [place] [address], Hematocrit (Bld) [Volume fraction] 43.9 % Normal 41.0-53.0 [facility] Comment on above: Performed By: #### C BCDSAT ####[facility] PATHOLOGY [id number] [place], Hemoglobin (Bld) [Mass/Vol] 14.8 g/dL Normal 13.9-16.3 [facility] Comment on above: Performed By: #### C BCDSAT ####[facility] PATHOLOGY [id number] [place] [address], Lymphocytes (Bld) [#/Vol] 1.80 10*3/uL Normal 1.00-4.80 The [facility] Comment on above: Performed By: #### C BCDSAT ####[facility] PATHOLOGY [id number] [place], Lymphocytes/100 WBC (Bld) 23.3 % Low 24.0-44.0 The [facility] Comment on above: Performed By: #### C BCDSAT ####[facility] PATHOLOGY [id number] [place], MCH (RBC) [Entitic mass] 34.3 pg High 26.0-34.0 The [facility] Comment on above: Performed By: #### C BCDSAT ####[facility] PATHOLOGY [id number] [place], MCHC (RBC) [Mass/Vol] 33.7 g/dL Normal 32.0-35.9 The [facility] Comment on above: Performed By: #### C BCDSAT ####[facility] PATHOLOGY [id number] [place] [address], MCV (RBC) [Entitic vol] 102 fL High 80-100 The [facility] Comment on above: Performed By: #### C BCDSAT ####[facility] PATHOLOGY [id number] [place] [address], Monocytes (Bld) [#/Vol] 0.57 10*3/uL Normal 0.20-1.00 The [facility] Comment on above: Performed By: #### C BCDSAT ####[facility] PATHOLOGY [id number] [place] [address], Monocytes/100 WBC (Bld) 7.3 % Normal 2.0-11.0 The [facility] Comment on above: Performed By: #### C BCDSAT ####[facility] PATHOLOGY [id number] [place], Neutrophils (Bld) [#/Vol] 5.27 10*3/uL Normal 1.50-8.00 The [facility] Comment on above: Performed By: #### C BCDSAT ####[facility] PATHOLOGY [id number] [place] [address], Neutrophils/100 WBC (Bld) 68.2 % Normal 31.0-76.0 [facility] Comment on above: Performed By: #### Kelly HERNANDEZAT ####[facility] PATHOLOGY [id number] [place], Platelet mean volume (Bld) [Entitic vol] 7.4 fL Low 7.5-11.2 [facility] Comment on above: Performed By: #### Kelly HERNANDEZAT ####[facility] PATHOLOGY [id number] [place] [address], Platelets (Bld) [#/Vol] 268 10*3/uL Normal 150-400 [facility] Comment on above: Performed By: #### Kelly HERNANDEZAT ####[facility] PATHOLOGY [id number] [place] [address], RBC (Bld) [#/Vol] 4.31 10*6/uL Low 4.50-5.90 [facility] Comment on above: Performed By: #### Kelly HERNANDEZAT ####[facility] PATHOLOGY [id number] [place] [address], WBC (Bld) [#/Vol] 7.7 10*3/uL Normal 4.5-11.5 [facility] Comment on above: Performed By: #### Kelly HERNANDEZAT ####[facility] PATHOLOGY [id number] [place], Basophils (Bld) [#/Vol] 0.04 10*3/uL Normal 0.00-0.20 [facility] Comment on above: Performed By: #### Kelly HERNANDEZAT ####[facility] PATHOLOGY [id number] [place], Basophils/100 WBC (Bld) 0.6 % Normal <=1.9 [facility] Comment on above: Performed By: #### Kelly HERNANDEZAT ####[facility] PATHOLOGY [id number] [place], Eosinophils (Bld) [#/Vol] 0.04 10*3/uL Normal 0.00-0.70 [facility] Comment on above: Performed By: #### C BCDSAT ####[facility] PATHOLOGY [id number] [place], Eosinophils/100 WBC (Bld) 0.6 % Normal 0.1-4.0 [facility] Comment on above: Performed By: #### C BCDSAT ####[facility] PATHOLOGY [id number] [place], Erythrocyte distribution width (RBC) [Ratio] 13.9 % Normal 11.5-14.5 [facility] Comment on above: Performed By: #### C BCDSAT ####[facility] PATHOLOGY [id number] [place], Hematocrit (Bld) [Volume fraction] 42.7 % Normal 41.0-53.0 [facility] Comment on above: Performed By: #### C BCDSAT ####[facility] PATHOLOGY [id number] [place], Hemoglobin (Bld) [Mass/Vol] 14.6 g/dL Normal 13.9-16.3 [facility] Comment on above: Performed By: #### C BCDSAT ####[facility] PATHOLOGY [id number] [place], Lymphocytes (Bld) [#/Vol] 1.71 10*3/uL Normal 1.00-4.80 [facility] Comment on above: Performed By: #### C BCDSAT ####[facility] PATHOLOGY [id number] [place], Lymphocytes/100 WBC (Bld) 24.1 % Normal 24.0-44.0 The [facility] Comment on above: Performed By: #### C BCDSAT ####[facility] PATHOLOGY [id number] [place], MCH (RBC) [Entitic mass] 34.2 pg High 26.0-34.0 The [facility] Comment on above: Performed By: #### C BCDSAT ####[facility] PATHOLOGY [id number] [place] [address], MCHC (RBC) [Mass/Vol] 34.1 g/dL Normal 32.0-35.9 [facility] Comment on above: Performed By: #### C BCDSAT ####[facility] PATHOLOGY [id number] [place], MCV (RBC) [Entitic vol] 100 fL Normal 80-100 The [facility] Comment on above: Performed By: #### C BCDSAT ####[facility] PATHOLOGY [id number] [place], Monocytes (Bld) [#/Vol] 0.62 10*3/uL Normal 0.20-1.00 The [facility] Comment on above: Performed By: #### C BCDSAT ####[facility] PATHOLOGY [id number] [place], Monocytes/100 WBC (Bld) 8.8 % Normal 2.0-11.0 The [facility] Comment on above: Performed By: #### C GARRETTDSAT ####[facility] PATHOLOGY [id number] [place] [address], Neutrophils (Bld) [#/Vol] 4.66 10*3/uL Normal 1.50-8.00 The [facility] Comment on above: Performed By: #### C BCDSAT ####[facility] PATHOLOGY [id number] [place] [address], Neutrophils/100 WBC (Bld) 66.0 % Normal 31.0-76.0 The [facility] Comment on above: Performed By: #### C BCDSAT ####[facility] PATHOLOGY [id number] [place], Platelet mean volume (Bld) [Entitic vol] 7.8 fL Normal 7.5-11.2 The [facility] Comment on above: Performed By: #### C BCDSAT ####S PATHOLOGY [id number] [place], Platelets (Bld) [#/Vol] 279 10*3/uL Normal 150-400 [facility] Comment on above: Performed By: #### Kelly BCDSAT ####S PATHOLOGY WAEGCHOIRC[address] [place] [address], RBC (Bld) [#/Vol] 4.26 10*6/uL Low 4.50-5.90 The [facility] Comment on above: Performed By: #### C BCDSAT ####[facility] [id number] [place], WBC (Bld) [#/Vol] 7.1 10*3/uL Normal 4.5-11.5 The [facility] Comment on above: Performed By: #### C BCDSAT ####[facility] [id number] [place], [place], H AND Timo 09-06-2024 [employer] Sales Assistant Authentication Interface Message Text Normal [facility] HEPATIC FUNCTION PANELon Albumin [Mass/Vol] 3.7 g/dL Normal 3.5-5.7 [facility] Comment on above: Performed By: #### Kelly H8, HEPATIC, MG ####[facility] [id number] [place], ALK 224 IU/L High 34-104 [facility] Comment on above: Performed By: #### Kelly H8, HEPATIC, MG ####[facility] [id number] [place], ALT [Catalytic activity/Vol] 44 U/L Normal 7-52 [facility] Comment on above: Performed By: #### Kelly H8, HEPATIC, MG ####[facility] [id number] [place], AST [Catalytic activity/Vol] 25 U/L Normal 13-39 [facility] Comment on above: Performed By: #### C H8, HEPATIC, MG ####[facility] [id number] [place], Bilirubin [Mass/Vol] 2.4 mg/dL High 0.3-1.0 [facility] Comment on above: Performed By: #### C H8, HEPATIC, MG ####[facility] [id number] [place], Bilirubin.direct [Mass/Vol] 0.81 mg/dL High 0.03-0.18 [facility] Comment on above: Performed By: #### C H8, HEPATIC, MG ####[facility] [id number] [place], Protein [Mass/Vol] 6.4 g/dL Normal 6.0-8.3 [facility] Comment on above: Performed By: #### C H8, HEPATIC, MG ####[facility] [id number] [place], Albumin [Mass/Vol] 3.6 g/dL Normal 3.5-5.7 [facility] Comment on above: Performed By: #### C H8, HEPATIC, MG ####[facility] [id number] [place], ALK 233 IU/L High 34-104 [facility] Comment on above: Performed By: #### C HGissel, HEPATIC, MG ####[facility] [id number] [place], ALT [Catalytic activity/Vol] 46 U/L Normal 7-52 [facility] Comment on above: Performed By: #### C H8, HEPATIC, MG ####[facility] [id number] [place], AST [Catalytic activity/Vol] 25 U/L Normal 13-39 [facility] Comment on above: Performed By: #### C H8, HEPATIC, MG ####[facility] [id number] [place], Bilirubin [Mass/Vol] 2.7 mg/dL High 0.3-1.0 [facility] Comment on above: Performed By: #### C H8, HEPATIC, MG ####[facility] [id number] [place], Bilirubin.direct [Mass/Vol] 1.04 mg/dL High 0.03-0.18 [facility] Comment on above: Performed By: #### C H8, HEPATIC, MG ####[facility] [id number] [place], Protein [Mass/Vol] 6.4 g/dL Normal 6.0-8.3 [facility] Comment on above: Performed By: #### C H8, HEPATIC, MG ####[facility] PATHOLOGY [id number] [place], LACTIC ACIDon 09-06-2024 CR LACT 3.2 mmol/L Critically high 0.5-1.6 [facility] Comment on above: Order Comment: This test was developed, and its performance characteristics determined by the Department of Pathology of The [facility]. It has not been cleared or approved by the FDA. This test is used for clinical purposes only. Performed By: #### L ACT ####[facility] PATHOLOGY [id number] [place], CR LACT 4.3 mmol/L Critically high 0.5-1.6 [facility] Comment on above: Order Comment: This test was developed, and its performance characteristics determined by the Department of Pathology of [facility]. It has not been cleared or approved by the FDA. This test is used for clinical purposes only. Performed By: #### L ACT ####[facility] PATHOLOGY [id number] [place], CR LACT 3.4 mmol/L Critically high 0.5-1.6 [facility] Comment on above: Order Comment: This test was developed, and its performance characteristics determined by the Department of Pathology of [facility]. It has not been cleared or approved by the FDA. This test is used for clinical purposes only. Performed By: #### L ACT ####S PATHOLOGY [id number] [place], MAGNESIUMon 09-06-2024 Magnesium [Mass/Vol] 1.4 mg/dL Low 1.9-2.7 [facility] Comment on above: Performed By: #### Kelly H8, HEPATIC, MG ####[facility] [id number] [place], Magnesium [Mass/Vol] 1.5 mg/dL Low 1.9-2.7 [facility] Comment on above: Performed By: #### Kelly H8, HEPATIC, MG ####S PATHOLOGY [id number] [place], PROTHROMBIN TIME AND INRon 0 09-06-2024 INR Coag (PPP) [Relative time] 1.26 {INR} High 0.90-1.10 [facility] Comment on above: Performed By: #### P T ####[facility] PATHOLOGY [id number] [place], PT Coag (PPP) [Time] 14.1 s High 9.7-12.9 [facility] Comment on above: Performed By: #### P T ####[facility] PATHOLOGY [id number] [place], [place], Progress Noteson 09-06-2024 Business Banking Sales Assistant Authentication Interface Message Text /GREG Lehman notified of critical lactate value of 3.2. /GREG Lehman read back critical results. New orders not received. Normal [facility] [employer] Sales Assistant Authentication Interface Message Text Normal [facility] [employer] Assistant Authentication Interface Message Text Patient refusing dobutamine infusion at this time. Patient educated on importance of medication by RN. Dr Field notified immediately. Normal [facility] [employer] Assistant Authentication Interface Message Text Normal [facility] [employer] Assistant Authentication Interface Message Text Patient refusing iv magnesium states I can't be hooked up to anything for 4 hours ' patient aware of need for med and consequences md aware Normal [facility] [employer] Assistant Authentication Interface Message Text Normal [facility] [employer] Sales Assistant Authentication Interface Message Text Dr. Carlson notified of critical lactic acid value of 3.4. Dr. Carlson read back critical results. New orders not received. Normal [facility] [employer] Sales Assistant Authentication Interface Message Text Normal The [facility] [employer] Authentication Interface Message Text Normal The [facility] [employer] Authentication Interface Message Text Patient refusing AM lab draw, stating only one person is able to get him because he is a hard stick, and unfortunately that person is not here right now. This RN asked patient if he would be willing to let her try, Patient stated no. Dr Tia MD notified. Normal [facility] Transfer Noteon 09-06-2024 Business Banking Sales Assistant Authentication Interface Message Text Normal [facility] BASIC METABOLIC PANELon 03-0 9-2025 Anion gap [Moles/Vol] 19 mmol/L Normal 10-20 [facility] Comment on above: Performed By: #### H AUGUSTO DOSHI, MG ####[facility] [id number] [place], Calcium [Mass/Vol] 8.6 mg/dL Normal 8.6-10.3 [facility] Comment on above: Performed By: #### H AUGUSTO DOSHI, MG ####[facility] [id number] [place], Chloride [Moles/Vol] 95 mmol/L Low 98-107 [facility] Comment on above: Performed By: #### H AUGUSTO DOSHI, MG ####[facility] [id number] [place], CO2 [Moles/Vol] 27 mmol/L Normal 21-31 [facility] Comment on above: Performed By: #### AUGUSTO GUNDERSON, MG ####[facility] [id number] [place], Creatinine [Mass/Vol] 2.40 mg/dL High 0.70-1.30 [facility] Comment on above: Performed By: #### AUGUSTO GUNDERSON, MG ####[facility] [id number] [place], ESTIMATED GFR (CKD-EPI) 33 mL/min/1.73sqm Low >=60 [facility] Comment on above: Result Comment: 2020 [...] Inclusion of Race in Diagnosing Kidney Disease. Ethiopian Journal of Kidney Diseases 2021;79(2):268-88.e1.2. N Engl J Med 1 Vol. 385 Issue 19 Pages 6232-5427 Performed By: #### AUGUSTO GUNDERSON, MG ####[facility] [id number] [place], Glucose [Mass/Vol] 151 mg/dL High 74-109 [facility] Comment on above: Performed By: #### AUGUSTO GUNDERSON, MG ####S PATHOLOGY [id number] [place], Potassium [Moles/Vol] 3.5 mmol/L Normal 3.5-5.0 [facility] Comment on above: Performed By: #### AUGUSTO GUNDERSON, MG ####[facility] PATHOLOGY [id number] [place], Sodium [Moles/Vol] 137 mmol/L Normal 136-145 [facility] Comment on above: Performed By: #### AUGUSTO GUNDERSON, MG ####[facility] PATHOLOGY [id number] [place], Urea nitrogen [Mass/Vol] 49 mg/dL High 7-25 [facility] Comment on above: Performed By: #### AUGUSTO GUNDERSON, MG ####[facility] PATHOLOGY [id number] [place], CBC WITH DIFFERENTIALon 03-0 -2024 Basophils (Bld) [#/Vol] 0.03 10*3/uL Normal 0.00-0.20 [facility] Comment on above: Performed By: #### C BCDSAT ####[facility] PATHOLOGY [id number] [place], Basophils/100 WBC (Bld) 0.5 % Normal <=1.9 [facility] Comment on above: Performed By: #### C BCDSAT ####[facility] PATHOLOGY [id number] [place], Eosinophils (Bld) [#/Vol] 0.03 10*3/uL Normal 0.00-0.70 [facility] Comment on above: Performed By: #### C BCDSAT ####[facility] PATHOLOGY [id number] [place], Eosinophils/100 WBC (Bld) 0.4 % Normal 0.1-4.0 [facility] Comment on above: Performed By: #### C BCDSAT ####[facility] PATHOLOGY [id number] [place], Erythrocyte distribution width (RBC) [Ratio] 13.9 % Normal 11.5-14.5 [facility] Comment on above: Performed By: #### C BCDSAT ####[facility] PATHOLOGY [id number] [place] [address], Hematocrit (Bld) [Volume fraction] 45.3 % Normal 41.0-53.0 [facility] Comment on above: Performed By: #### C BCDSAT ####[facility] PATHOLOGY [id number] [place] [address], Hemoglobin (Bld) [Mass/Vol] 15.4 g/dL Normal 13.9-16.3 [facility] Comment on above: Performed By: #### C BCDSAT ####[facility] PATHOLOGY [id number] [place] [address], Lymphocytes (Bld) [#/Vol] 2.21 10*3/uL Normal 1.00-4.80 [facility] Comment on above: Performed By: #### C BCDSAT ####[facility] PATHOLOGY [id number] [place] [address], Lymphocytes/100 WBC (Bld) 33.5 % Normal 24.0-44.0 [facility] Comment on above: Performed By: #### C BCDSAT ####[facility] PATHOLOGY [id number] [place] [address], MCH (RBC) [Entitic mass] 34.5 pg High 26.0-34.0 [facility] Comment on above: Performed By: #### C BCDSAT ####S PATHOLOGY [id number] [place] [address], MCHC (RBC) [Mass/Vol] 34.0 g/dL Normal 32.0-35.9 [facility] Comment on above: Performed By: #### C BCDSAT ####[facility] PATHOLOGY [id number] [place] [address], MCV (RBC) [Entitic vol] 102 fL High 80-100 [facility] Comment on above: Performed By: #### Kelly HERNANDEZAT ####[facility] PATHOLOGY [id number] [place], Monocytes (Bld) [#/Vol] 0.64 10*3/uL Normal 0.20-1.00 [facility] Comment on above: Performed By: #### Kelly HERNANDEZAT ####[facility] PATHOLOGY [id number] [place], Monocytes/100 WBC (Bld) 9.7 % Normal 2.0-11.0 [facility] Comment on above: Performed By: #### Kelly HERNANDEZAT ####[facility] PATHOLOGY [id number] [place], Neutrophils (Bld) [#/Vol] 3.69 10*3/uL Normal 1.50-8.00 [facility] Comment on above: Performed By: #### Kelly HERNANDEZAT ####[facility] PATHOLOGY [id number] [place] [address], Neutrophils/100 WBC (Bld) 56.0 % Normal 31.0-76.0 [facility] Comment on above: Performed By: #### Kelly BCSHEYLAAT ####[facility] PATHOLOGY [id number] [place], Platelet mean volume (Bld) [Entitic vol] 8.6 fL Normal 7.5-11.2 [facility] Comment on above: Performed By: #### Kelly BCDSAT ####[facility] PATHOLOGY [id number] [place], Platelets (Bld) [#/Vol] 274 10*3/uL Normal 150-400 [facility] Comment on above: Performed By: #### Kelly HERNANDEZAT ####[facility] PATHOLOGY [id number] [place], [place], RBC (Bld) [#/Vol] 4.46 10*6/uL Low 4.50-5.90 [facility] Comment on above: Performed By: #### C BCSHEYLAAT ####S PATHOLOGY [id number] [place], [place], WBC (Bld) [#/Vol] 6.6 10*3/uL Normal 4.5-11.5 [facility] Comment on above: Performed By: #### C MARYAT ####S PATHOLOGY [id number] [place], [place], Consultson 09-05-2024 Business Banking Sales Assistant Authentication Interface Message Text Normal [facility] HEPATIC FUNCTION PANELon Albumin [Mass/Vol] 3.8 g/dL Normal 3.5-5.7 [facility] Comment on above: Performed By: #### AUGUSTO GUNDERSON, MG ####[facility] PATHOLOGY [id number] [place], [place], ALK 260 IU/L High 34-104 [facility] Comment on above: Performed By: #### AUGUSTO GUNDERSON, MG ####[facility] PATHOLOGY [id number] [place], [place], ALT [Catalytic activity/Vol] 52 U/L Normal 7-52 [facility] Comment on above: Performed By: #### AUGUSTO GUNDERSON, MG ####[facility] PATHOLOGY [id number] [place], AST [Catalytic activity/Vol] 29 U/L Normal 13-39 [facility] Comment on above: Performed By: #### AUGUSTO GUNDERSON, MG ####S PATHOLOGY [id number] [place], Bilirubin [Mass/Vol] 3.4 mg/dL High 0.3-1.0 [facility] Comment on above: Performed By: #### AUGUSTO GUNDERSON, MG ####S PATHOLOGY [id number] [place], Bilirubin.direct [Mass/Vol] 1.38 mg/dL High 0.03-0.18 [facility] Comment on above: Performed By: #### AUGUSTO GUNDERSON, MG ####S PATHOLOGY [id number] [place], Protein [Mass/Vol] 6.7 g/dL Normal 6.0-8.3 [facility] Comment on above: Performed By: #### H AUGUSTO DOSHI, MG ####S PATHOLOGY [id number] [place], [place], LACTIC ACIDon 09-05-2024 CR LACT 2.4 mmol/L High 0.5-1.6 [facility] Comment on above: Order Comment: This test was developed, and its performance characteristics determined by the Department of Pathology of [facility]. It has not been cleared or approved by the FDA. This test is used for clinical purposes only. Performed By: #### L ACT ####S PATHOLOGY [id number] [place] [address], CR LACT 2.7 mmol/L High 0.5-1.6 [facility] Comment on above: Order Comment: This test was developed, and its performance characteristics determined by the Department of Pathology of [facility]. It has not been cleared or approved by the FDA. This test is used for clinical purposes only. Performed By: #### L ACT ####[facility] PATHOLOGY [id number] [place] [address], MAGNESIUMon 09-05-2024 Magnesium [Mass/Vol] 1.6 mg/dL Low 1.9-2.7 [facility] Comment on above: Performed By: #### H AUGUSTO DOSHI, MG ####S PATHOLOGY [id number] [place], [place], PROTHROMBIN TIME AND INRon 0 09-05-2024 INR Coag (PPP) [Relative time] 1.40 {INR} High 0.90-1.10 [facility] Comment on above: Performed By: #### P T ####S PATHOLOGY [id number] [place] [address], PT Coag (PPP) [Time] 15.7 s High 9.7-12.9 [facility] Comment on above: Performed By: #### P T ####S PATHOLOGY [id number] [place] [address], Progress Noteson 09-05-2024 Business Banking Sales Assistant Authentication Interface Message Text Normal [facility] Business Banking Sales Assistant Authentication Interface Message Text Normal [facility] Business Banking Sales Assistant Authentication Interface Message Text Normal [facility] Business Banking Sales Assistant Authentication Interface Message Text Pt refused all AM lab draw Nalini Harp MD notified. Normal [facility] US AORTA IVC + DOPPLER(CLARICE)o n 09-05-2024 US AORTA IVC + DOPPLER(CLARICE) Normal [facility] US KIDNEY+BLADDERon 09-06-19 25 US KIDNEY+BLADDER Normal [facility] ALPHA 1 ANTITRYPSIN QUANTon 09-04-2024 A1A 197 mg/dL Normal 84-218 [facility] Comment on above: Performed By: #### A 1A, HEPATIC ####[facility] PATH[facility] [id number] [place], ANTIMITOCHONDRIAL SCRN AND TITon 09-04-2024 ANTI-MITOCHONDRIAL AB Negative Normal Negative [facility] Comment on above: Order Comment: Elect ronically Signed Out by Yobani Yang MD on 09/09/2024.I certify that I personally conducted the diagnostic evaluation of the above specimen(s) and have rendered the final diagnosis(es). Performed By: #### S M MU S/T, AMA S/T ####[facility] PATH[facility]Y [id number] [place], BASIC METABOLIC PANELon Anion gap [Moles/Vol] 23 mmol/L High 10-20 [facility] Comment on above: Performed By: #### C H8, MG, CERU ####[facility] PATHOLOGY [id number] [place], Anion gap [Moles/Vol] 21 mmol/L High 10-20 [facility] Comment on above: Performed By: #### H EPATIC, CH8, MG ####[facility] PATHOLOGY [id number] [place], Calcium [Mass/Vol] 8.7 mg/dL Normal 8.6-10.3 [facility] Comment on above: Performed By: #### C H8, MG, CERU ####[facility] PATHOLOGY [id number] [place], Calcium [Mass/Vol] 9.0 mg/dL Normal 8.6-10.3 [facility] Comment on above: Performed By: #### Bonilla DOSHI, CH8, MG ####S PATHOLOGY [id number] [place], Chloride [Moles/Vol] 99 mmol/L Normal 98-107 [facility] Comment on above: Performed By: #### Kelly H8, MG, CERU ####S PATHOLOGY [id number] [place], Chloride [Moles/Vol] 96 mmol/L Low 98-107 [facility] Comment on above: Performed By: #### Bonilla DOSHI, CH8, MG ####[facility] PATHOLOGY [id number] [place], CO2 [Moles/Vol] 17 mmol/L Low 21-31 [facility] Comment on above: Performed By: #### Kelly Simon, MG, CERU ####[facility] PATHOLOGY [id number] [place], CO2 [Moles/Vol] 21 mmol/L Normal 21-31 [facility] Comment on above: Performed By: #### Bonilla DOSHI, CH8, MG ####[facility] PATHOLOGY [id number] [place], Creatinine [Mass/Vol] 2.73 mg/dL High 0.70-1.30 [facility] Comment on above: Performed By: #### Kelly HGissel, MG, CERU ####S PATHOLOGY [id number] [place], Creatinine [Mass/Vol] 2.60 mg/dL High 0.70-1.30 [facility] Comment on above: Performed By: #### Bonilla EPAMISAEL, CH8, MG ####S PATHOLOGY [id number] [place], ESTIMATED GFR (CKD-EPI) 28 mL/min/1.73sqm Low >=60 [facility] Comment on above: Result Comment: 2020 [...] Inclusion of Race in Diagnosing Kidney Disease. Ethiopian Journal of Kidney Diseases 2021;79(2):268-88.e1.2. Engl J Med 1 Vol. 385 Issue 19 Pages 2430-2559 Performed By: #### Kelly Simon MG, CERU ####[facility] PATHOLOGY [id number] [place], ESTIMATED GFR (CKD-EPI) 30 mL/min/1.73sqm Low >=60 [facility] Comment on above: Result Comment: 2020 CKD EPI Equation using Creatinine without RaceComment: Estimated glomerular filtration rate (eGFR) is calculated without a race coefficient. Values should be interpreted in the context of the patient's full clinical presentation.Reference:1. Melonie Salcedo, Alecia BABCOCK, et al.. A Unifying Approach for GFR Estimation: Recommendations of the NKF-ASN Task Force on Reassessing the Inclusion of Race in Diagnosing Kidney Disease. [place]ian Journal of Kidney Diseases 2021;79(2):268-88.e1.2. [facility] J Med 1 Vol. 385 Issue 19 Pages 9180-4764 Performed By: #### H FERNANDO DOSHI8, MG ####[facility] PATHOLOGY [id number] [place], Glucose [Mass/Vol] 150 mg/dL High 74-109 [facility] Comment on above: Performed By: #### Kelly H8, MG, CERU ####[facility] PATHOLOGY [id number] [place], Glucose [Mass/Vol] 129 mg/dL High 74-109 [facility] Comment on above: Performed By: #### H FERNANDO DOSHI8, MG ####[facility] PATHOLOGY [id number] [place], Potassium [Moles/Vol] 4.6 mmol/L Normal 3.5-5.0 [facility] Comment on above: Performed By: #### MG Deja, CERU ####S PATHOLOGY [id number] [place], Potassium [Moles/Vol] 4.3 mmol/L Normal 3.5-5.0 [facility] Comment on above: Performed By: #### AUGUSTO GUNDERSON, MG ####S PATHOLOGY [id number] [place], Sodium [Moles/Vol] 134 mmol/L Low 136-145 [facility] Comment on above: Performed By: #### MG Deja, ADALI ####[facility] PATHOLOGY [id number] [place], Performed By: #### AUGUSTO GUNDERSON, ####[facility] PATHOLOGY [id number] [place], Urea nitrogen [Mass/Vol] 51 mg/dL High 7-25 [facility] Comment on above: Performed By: #### MG Deja, CERU ####[facility] PATHOLOGY [id number] [place], Urea nitrogen [Mass/Vol] 52 mg/dL High 7-25 [facility] Comment on above: Performed By: #### AUGUSTO GUNDERSON, MG ####[facility] PATHOLOGY [id number] [place], BLOOD CULTUREon 09-04-2024 Bacteria identified Cx Nom (Bld) C BLOOD: No Growth Normal [facility] Comment on above: Performed By: #### C BLOOD ####[facility] Ubuebvfbb0479 [place], [place] CBC WITH DIFFERENTIALon Basophils (Bld) [#/Vol] 0.05 10*3/uL Normal 0.00-0.20 [facility] Comment on above: Performed By: #### C BCDSAT ####S PATHOLOGY [id number] [place], Basophils/100 WBC (Bld) 0.7 % Normal <=1.9 [facility] Comment on above: Performed By: #### C BCDSAT ####[facility] PATHOLOGY [id number] [place], Eosinophils (Bld) [#/Vol] 0.03 10*3/uL Normal 0.00-0.70 [facility] Comment on above: Performed By: #### C BCDSAT ####[facility] PATHOLOGY [id number] [place], Eosinophils/100 WBC (Bld) 0.4 % Normal 0.1-4.0 [facility] Comment on above: Performed By: #### C BCDSAT ####[facility] PATHOLOGY [id number] [place] [address], Erythrocyte distribution width (RBC) [Ratio] 14.2 % Normal 11.5-14.5 [facility] Comment on above: Performed By: #### C BCDSAT ####[facility] PATHOLOGY [id number] [place] [address], Hematocrit (Bld) [Volume fraction] 44.1 % Normal 41.0-53.0 [facility] Comment on above: Performed By: #### C BCDSAT ####[facility] PATHOLOGY [id number] [place], Hemoglobin (Bld) [Mass/Vol] 14.7 g/dL Normal 13.9-16.3 [facility] Comment on above: Performed By: #### C BCDSAT ####[facility] PATHOLOGY [id number] [place], Lymphocytes (Bld) [#/Vol] 2.23 10*3/uL Normal 1.00-4.80 [facility] Comment on above: Performed By: #### C BCDSAT ####[facility] PATHOLOGY [id number] [place], Lymphocytes/100 WBC (Bld) 31.0 % Normal 24.0-44.0 [facility] Comment on above: Performed By: #### C BCDSAT ####[facility] PATHOLOGY [id number] [place], MCH (RBC) [Entitic mass] 34.5 pg High 26.0-34.0 [facility] Comment on above: Performed By: #### C BCDSAT ####[facility] PATHOLOGY [id number] [place], MCHC (RBC) [Mass/Vol] 33.4 g/dL Normal 32.0-35.9 [facility] Comment on above: Performed By: #### C BCSHEYLAAT ####[facility] PATHOLOGY [id number] [place], MCV (RBC) [Entitic vol] 103 fL High 80-100 [facility] Comment on above: Performed By: #### C MARYAT ####[facility] PATHOLOGY [id number] [place], Monocytes (Bld) [#/Vol] 0.67 10*3/uL Normal 0.20-1.00 [facility] Comment on above: Performed By: #### C BCSHEYLAAT ####[facility] PATHOLOGY [id number] [place], Monocytes/100 WBC (Bld) 9.2 % Normal 2.0-11.0 [facility] Comment on above: Performed By: #### C BCDSAT ####[facility] PATHOLOGY [id number] [place], Neutrophils (Bld) [#/Vol] 4.24 10*3/uL Normal 1.50-8.00 [facility] Comment on above: Performed By: #### C BCDSAT ####[facility] PATHOLOGY [id number] [place], Neutrophils/100 WBC (Bld) 58.7 % Normal 31.0-76.0 [facility] Comment on above: Performed By: #### C BCDSAT ####[facility] PATHOLOGY [id number] [place], Platelet mean volume (Bld) [Entitic vol] 8.3 fL Normal 7.5-11.2 [facility] Comment on above: Performed By: #### Kelly BCDSAT ####[facility] PATHOLOGY [id number] [place], Platelets (Bld) [#/Vol] 226 10*3/uL Normal 150-400 [facility] Comment on above: Performed By: #### Kelly BCDSAT ####[facility] PATHOLOGY [id number] [place], RBC (Bld) [#/Vol] 4.27 10*6/uL Low 4.50-5.90 [facility] Comment on above: Performed By: #### Kelly BCDSAT ####[facility] PATHOLOGY [id number] [place] [address], WBC (Bld) [#/Vol] 7.2 10*3/uL Normal 4.5-11.5 [facility] Comment on above: Performed By: ###Gonzalez Mendoza BCDSAT ####[facility] PATHOLOGY [id number] [place] [address], CERULOPLASMINon 09-04-2024 CERU 48 mg/dL Normal 20-60 [facility] Comment on above: Performed By: ###Gonzalez Mendoza H8, MG, CERU ####[facility] PATHOLOGY [id number] [place], Care Plan Noteon 09-04-2024 Business Banking Sales Assistant Authentication Interface Message Text Normal [facility] Business Banking Sales Assistant Authentication Interface Message Text Normal [facility] Consultson 09-04-2024 Business Banking Sales Assistant Authentication Interface Message Text Normal [facility] FENA, BLOODon 09-04-2024 Creatinine [Mass/Vol] 2.71 mg/dL High 0.70-1.30 [facility] Comment on above: Performed By: ###DONNY SINGER ####[facility] PATHOLOGY [id number] [place], Sodium [Moles/Vol] 132 mmol/L Low 136-145 [facility] Comment on above: Performed By: ###CLAUDETTE SINGERB ####[facility] PATHOLOGY [id number] [place] [address], FEUREA, BLOODon 09-04-2024 Urea nitrogen [Mass/Vol] 53 mg/dL High 7-25 [facility] Comment on above: Performed By: #### F CLAUDETTE ROGERSB ####S PATHOLOGY [id number] [place], FRACTIONAL EXCRETION OF SODI UMon 09-04-2024 [...] By: #### F FATUMA ODELL\ ####S PATHOLOGY [id number] [place], Order Comment: A res ult of <35% is consistent with prerenal cause of SCHUYLER. >50% is consistent with tubular causes. Use of FEUrea may be more accurate than FENa in detecting prerenal disease in patients concurrently taking diuretics. CREATININE, URINE 143 mg/dL Normal [facility] Comment on above: Order Comment: A res ult of <1% often indicates prerenal cause in the setting of SCHUYLER. >2% usually indicates SCHUYLER from tubular causes. Concurrent use of diuretic therapy may limit the utility of the FENa calculation in patients with prerenal disease. Performed By: #### F FATUMA ODELL\ ####S PATHOLOGY [id number] [place], Order Comment: A res ult of <35% is consistent with prerenal cause of SCHUYLER. >50% is consistent with tubular causes. Use of FEUrea may be more accurate than FENa in detecting prerenal disease in patients concurrently taking diuretics. FRACTIONAL EXCRETION OF SODIUM 0.3 % Normal [facility] Comment on above: Order Comment: A res ult of <1% often indicates prerenal cause in the setting of SCHUYLER. >2% usually indicates SCHUYLER from tubular causes. Concurrent use of diuretic therapy may limit the utility of the FENa calculation in patients with prerenal disease. Performed By: #### F FATUMA ODELL\ ####S PATHOLOGY [id number] [place], NA(FENA,BLOOD) 134 mmol/L Low 136-145 [facility] Comment on above: Order Comment: A res ult of <1% often indicates prerenal cause in the setting of SCHUYLER. >2% usually indicates SCHUYLER from tubular causes. Concurrent use of diuretic therapy may limit the utility of the FENa calculation in patients with prerenal disease. Performed By: #### F FATUMA ODELL\ ####S PATHOLOGY [id number] [place], Sodium [Moles/Vol] 19 mmol/L Normal [facility] Comment on above: Order Comment: A res ult of <1% often indicates prerenal cause in the setting of SCHUYLER. >2% usually indicates SCHUYLER from tubular causes. Concurrent use of diuretic therapy may limit the utility of the FENa calculation in patients with prerenal disease. Performed By: #### F FATUMA ODELL\ ####S PATHOLOGY [id number] [place], FRACTIONAL EXCRETION OF UREA on 09-04-2024 FRACTIONAL EXCRETION OF UREA 23 % Normal [facility] Comment on above: Order Comment: A res ult of <35% is consistent with prerenal cause of SCHUYLER. >50% is consistent with tubular causes. Use of FEUrea may be more accurate than FENa in detecting prerenal disease in patients concurrently taking diuretics. Performed By: #### F FATUMA ODELL\ ####S PATHOLOGY [id number] [place], UREA NITROGEN, URINE 666 mg/dL Normal [facility] Comment on above: Order Comment: A res ult of <35% is consistent with prerenal cause of SCHUYLER. >50% is consistent with tubular causes. Use of FEUrea may be more accurate than FENa in detecting prerenal disease in patients concurrently taking diuretics. Performed By: #### F FATUMA ODELL\ ####S PATHOLOGY [id number] [place], UREA(BLOOD) 52 mg/dL High 8-22 [facility] Comment on above: Order Comment: A res ult of <35% is consistent with prerenal cause of SCHUYLER. >50% is consistent with tubular causes. Use of FEUrea may be more accurate than FENa in detecting prerenal disease in patients concurrently taking diuretics. Performed By: #### FAUTMA HELM\ ####[facility] [id number] [place], HEPATIC FUNCTION PANELon Albumin [Mass/Vol] 3.8 g/dL Normal 3.5-5.7 [facility] Comment on above: Performed By: #### A Marge, HEPATIC ####[facility] PATH[facility] [id number] [place], Albumin [Mass/Vol] 4.0 g/dL Normal 3.5-5.7 [facility] Comment on above: Performed By: #### AUGUSTO GUNDERSON, MG ####[facility] PATH[facility] [id number] [place], ALK 269 IU/L High 34-104 [facility] Comment on above: Performed By: #### Keyon Bird, HEPATIC ####S PATHOLOGY [id number] [place], ALK 304 IU/L High 34-104 [facility] Comment on above: Performed By: #### AUGUSTO GUNDERSON, MG ####[facility] PATH[facility] [id number] [place], ALT [Catalytic activity/Vol] 57 U/L High 752 [facility] Comment on above: Performed By: #### Keyon 1A, HEPATIC ####[facility] PATH[facility]Y [id number] [place], ALT [Catalytic activity/Vol] 62 U/L High 7-52 [facility] Comment on above: Performed By: #### AUGUSTO GUNDERSON, MG ####[facility] PATH[facility]Y [id number] [place], AST [Catalytic activity/Vol] 64 U/L High 13-39 [facility] Comment on above: Result Comment: Hemo lysis present Performed By: #### Keyon 1A, HEPATIC ####[facility] PATH[facility] [id number] [place], AST [Catalytic activity/Vol] 53 U/L High 13-39 [facility] Comment on above: Performed By: #### AUGUSTO GUNDERSON, MG ####[facility] PATH[facility] [id number] [place], Bilirubin [Mass/Vol] 3.5 mg/dL High 0.3-1.0 [facility] Comment on above: Performed By: #### Keyon Bird, HEPATIC ####[facility] PATH[facility] [id number] [place], Bilirubin [Mass/Vol] 3.9 mg/dL High 0.3-1.0 [facility] Comment on above: Performed By: #### AUGUSTO GUNDERSON, MG ####S PATHOLOGY [id number] [place], Bilirubin.direct [Mass/Vol] 1.03 mg/dL High 0.03-0.18 [facility] Comment on above: Performed By: #### Keyon Bird, HEPATIC ####S PATHOLOGY [id number] [place], Bilirubin.direct [Mass/Vol] 1.61 mg/dL High 0.03-0.18 [facility] Comment on above: Performed By: #### AUGUSTO GUNDERSON, MG ####S PATHOLOGY [id number] [place], Protein [Mass/Vol] 6.6 g/dL Normal 6.0-8.3 [facility] Comment on above: Performed By: #### Keyon 1A, HEPATIC ####S PATHOLOGY [id number] [place], Protein [Mass/Vol] 7.1 g/dL Normal 6.0-8.3 [facility] Comment on above: Performed By: #### AUGUSTO GUNDERSON, MG ####S PATHOLOGY [id number] [place], HIGH SENSITIVITY TROPONIN Io n 09-04-2024 HS TROPONIN I 38 ng/L High <=15 [facility] Comment on above: Order Comment: Lowell monalisa troponin can result from acute myocardial [...] Performed By: #### H STRP ####[facility] PATH[facility] [id number] [place], [address] LACTIC ACIDon 09-04-2024 CR LACT 2.6 mmol/L High 0.5-1.6 [facility] Comment on above: Order Comment: This test was developed, and its performance characteristics determined by the Department of Pathology of The [facility]. It has not been cleared or approved by the FDA. This test is used for clinical purposes only. Performed By: #### L ACT ####[facility] PATHOLOGY [id number] [place], MAGNESIUMon 09-04-2024 Magnesium [Mass/Vol] 1.9 mg/dL Normal 1.9-2.7 [facility] Comment on above: Performed By: #### C H8, MG, CERU ####[facility] PATHOLOGY [id number] [place], Performed By: #### H EPATIC, CH8, MG ####[facility] PATHOLOGY [id number] [place], POTASSIUM, RANDOM URINEon POTASSIUM, URINE 52 mmol/L Normal 10-160 [facility] Comment on above: Performed By: #### K RU, NA RU ####[facility] PATHOLOGY [id number] [place] [address], PROTHROMBIN TIME AND INRon 0 09-04-2024 INR Coag (PPP) [Relative time] 1.39 {INR} High 0.90-1.10 [facility] Comment on above: Performed By: #### P T ####[facility] PATHOLOGY [id number] [place], PT Coag (PPP) [Time] 15.6 s High 9.7-12.9 [facility] Comment on above: Performed By: #### P T ####[facility] PATHOLOGY [id number] [place], [place], Progress Noteson 09-04-2024 Business Banking Sales Assistant Authentication Interface Message Text Pt refused 2100 lab draw Nalini Harp MD notified. Normal [facility] Business Banking Sales Assistant Authentication Interface Message Text Normal The [facility] SMOOTH MUSC ATB SCRN AND TIT [employer] 09-04-2024 ANTI-SMA SCREEN Negative Normal Negative [facility] Comment on above: Order Comment: Negat dai SMA test does not exclude the possibility of chronic liver disease. .I certify that I personally conducted the diagnostic evaluation of the above specimen(s) and have rendered the final diagnosis(es). Performed By: #### S M MU S/T, AMA S/T ####S PATHOLOGY [id number] [place], [place], SODIUM, RANDOM URINEon 09-04 Sodium (U) [Moles/Vol] 20 mmol/L Normal Th [facility] Comment on above: Performed By: #### K RU, NA RU ####[facility] [id number] [place], [place], URINALYSIS WITH REFLEX CULTU RE PERFORMABLEon 09-04-2024 Glucose Ql (U) Negative Normal Negative [facility] Comment on above: Order Comment: A [...] Performed By: #### u rinalysiswcul ####S PATHOLOGY [id number] [place], [place], [place] APPEAR Clear Normal Clear [facility] Comment on above: Order Comment: A [...] Performed By: #### u rinalysiswcul ####[facility] [id number] [place], [place], [place] BILI Negative Normal Negative [facility] Comment on above: Order Comment: A [...] Performed By: #### u rinalysiswcul ####S PATHOLOGY ONSSQHFEWB5985 [place], [place], [place] BLOOD Negative Normal Negative [facility] Comment on above: Order Comment: A [...] around 50%) Performed By: #### u rinalysiswcul ####[facility] PATHOLOGY [id number] [place], [place], [place] COLOR Light Yellow Normal Colorless [facility] Comment on above: Order Comment: A [...] Performed By: #### u rinalysiswcul ####S PATHOLOGY [id number] [place], [place], [place] KETONE Negative Normal Negative [facility] Comment on above: Order Comment: A [...] around 50%) Performed By: #### u rinalysiswcul ####[facility] PATHOLOGY [id number] [place], [place], [place] LEUK Negative Normal Negative [facility] Comment on above: Order Comment: A [...] around 50%) Performed By: #### u rinalysiswcul ####[facility] PATHOLOGY PMLYVGYQGN8480 [place], [place], [place] NITRITE Negative Normal Negative The [facility] Comment on above: Order Comment: A [...] around 50%) Performed By: #### u rinalysiswcul ####[facility] PATHOLOGY [id number] [place], [place], [place] PH 5.5 Normal 5.0-8.0 [facility] Comment on above: Order Comment: A [...] Performed By: #### u rinalysiswcul ####S PATHOLOGY [id number] [place], [place], [place] PROTEIN Negative Normal Negative The [facility] Comment on above: Order Comment: A [...] around 50%) Performed By: #### u rinalysiswcul ####[facility] PATHOLOGY UTRSARTIYH9287 [place], [place], [place] SG 1.008 Normal <=1.030 [facility] Comment on above: Order Comment: A [...] around 50%) Performed By: #### u rinalysiswcul ####[facility] PATHOLOGY EUCLLNKLZT6032 [place], [place] UROBILI Negative Normal Negative The [facility] Comment on above: Order Comment: A [...] Performed By: #### u rinalysiswcul ####[facility] [id number] [place], XR CHEST AP OR PA 1 VIEWon 0 09-04-2024 XR CHEST AP OR PA 1 VIEW Normal [facility] Progress Noteson 09-03-2024 Business Banking Sales Assistant Authentication Interface Message Text Normal [facility] Business Banking Sales Assistant Authentication Interface Message Text Normal [facility] Business Banking Sales Assistant Authentication Interface Message Text Normal [facility] BASIC METABOLIC PANELon Anion gap [Moles/Vol] 19 mmol/L Normal 10-20 [facility] Comment on above: Performed By: #### C H8, HEPATIC, MG ####[facility] [id number] [place], Calcium [Mass/Vol] 8.8 mg/dL Normal 8.6-10.3 [facility] Comment on above: Performed By: #### C H8, HEPATIC, MG ####[facility] [id number] [place], Chloride [Moles/Vol] 100 mmol/L Normal 98-107 [facility] Comment on above: Performed By: #### C H8, HEPATIC, MG ####[facility] [id number] [place], CO2 [Moles/Vol] 22 mmol/L Normal 21-31 [facility] Comment on above: Performed By: #### C H8, HEPATIC, MG ####[facility] PCNWRNHKZU7358 [place], Creatinine [Mass/Vol] 2.25 mg/dL High 0.70-1.30 [facility] Comment on above: Performed By: #### C H8, HEPATIC, MG ####[facility] RGVNNNSBRL6625 [place], ESTIMATED GFR (CKD-EPI) 36 mL/min/1.73sqm Low >=60 [facility] Comment on above: Result Comment: 2020 [...] Inclusion of Race in Diagnosing Kidney Disease. Ethiopian Journal of Kidney Diseases 2021;79(2):268-88.e1.2. N Engl J Med 1 Vol. 385 Issue 19 Pages 7291-5733 Performed By: #### C H8, HEPATIC, MG ####[facility] [id number] [place], Glucose [Mass/Vol] 100 mg/dL Normal 74-109 [facility] Comment on above: Performed By: #### C H8, HEPATIC, MG ####[facility] [id number] [place], Potassium [Moles/Vol] 4.5 mmol/L Normal 3.5-5.0 The [facility] Comment on above: Performed By: #### C H8, HEPATIC, MG ####[facility] BAHKXOZMOS6941 [place], Sodium [Moles/Vol] 136 mmol/L Normal 136-145 [facility] Comment on above: Performed By: #### C H8, HEPATIC, MG ####[facility]Y [id number] [place], Urea nitrogen [Mass/Vol] 43 mg/dL High 7-25 [facility] Comment on above: Performed By: #### C H8, HEPATIC, MG ####[facility] [id number] [place], CBC WITH DIFFERENTIALon 03-0 Basophils (Bld) [#/Vol] 0.05 10*3/uL Normal 0.00-0.20 The [facility] Comment on above: Performed By: #### C BCDSAT ####[facility] PATHOLOGY [id number] [place], Basophils/100 WBC (Bld) 0.6 % Normal <=1.9 [facility] Comment on above: Performed By: #### C BCDSAT ####[facility] PATHOLOGY [id number] [place], Eosinophils (Bld) [#/Vol] 0.04 10*3/uL Normal 0.00-0.70 [facility] Comment on above: Performed By: #### C BCDSAT ####[facility] PATHOLOGY [id number] [place], Eosinophils/100 WBC (Bld) 0.6 % Normal 0.1-4.0 [facility] Comment on above: Performed By: #### C BCDSAT ####[facility] PATHOLOGY [id number] [place] [address], Erythrocyte distribution width (RBC) [Ratio] 13.5 % Normal 11.5-14.5 The [facility] Comment on above: Performed By: #### C BCDSAT ####[facility] PATHOLOGY [id number] [place], Hematocrit (Bld) [Volume fraction] 43.7 % Normal 41.0-53.0 The [facility] Comment on above: Performed By: #### C BCDSAT ####[facility] PATHOLOGY [id number] [place], Hemoglobin (Bld) [Mass/Vol] 14.7 g/dL Normal 13.9-16.3 The [facility] Comment on above: Performed By: #### C BCDSAT ####[facility] PATHOLOGY [id number] [place], Lymphocytes (Bld) [#/Vol] 2.52 10*3/uL Normal 1.00-4.80 [facility] Comment on above: Performed By: #### C BCDSAT ####[facility] PATHOLOGY [id number] [place], Lymphocytes/100 WBC (Bld) 32.6 % Normal 24.0-44.0 [facility] Comment on above: Performed By: #### C MARYAT ####[facility] PATHOLOGY [id number] [place] [address], MCH (RBC) [Entitic mass] 34.4 pg High 26.0-34.0 The [facility] Comment on above: Performed By: #### C MARYAT ####[facility] PATHOLOGY [id number] [place] [address], MCHC (RBC) [Mass/Vol] 33.8 g/dL Normal 32.0-35.9 The [facility] Comment on above: Performed By: #### C MARYAT ####[facility] PATHOLOGY [id number] [place] [address], MCV (RBC) [Entitic vol] 102 fL High 80-100 The [facility] Comment on above: Performed By: #### Kelly HERNANDEZAT ####[facility] PATHOLOGY [id number] [place] [address], Monocytes (Bld) [#/Vol] 0.77 10*3/uL Normal 0.20-1.00 The [facility] Comment on above: Performed By: #### Kelly HERNANDEZAT ####[facility] PATHOLOGY [id number] [place] [address], Monocytes/100 WBC (Bld) 9.9 % Normal 2.0-11.0 The [facility] Comment on above: Performed By: #### C MARYAT ####[facility] PATHOLOGY [id number] [place] [address], Neutrophils (Bld) [#/Vol] 4.35 10*3/uL Normal 1.50-8.00 The [facility] Comment on above: Performed By: #### C MARYAT ####[facility] PATHOLOGY [id number] [place] [address], Neutrophils/100 WBC (Bld) 56.3 % Normal 31.0-76.0 The [facility] Comment on above: Performed By: #### Kelly HERNANDEZAT ####[facility] PATHOLOGY [id number] [place], Platelet mean volume (Bld) [Entitic vol] 8.6 fL Normal 7.5-11.2 The [facility] Comment on above: Performed By: #### Kelly HERNANDEZAT ####[facility] PATHOLOGY [id number] [place], Platelets (Bld) [#/Vol] 222 10*3/uL Normal 150-400 The [facility] Comment on above: Performed By: #### Kelly HERNANDEZAT ####[facility] PATHOLOGY [id number] [place], RBC (Bld) [#/Vol] 4.29 10*6/uL Low 4.50-5.90 The [facility] Comment on above: Performed By: #### Kelly HERNANDEZAT ####[facility] PATHOLOGY [id number] [place], WBC (Bld) [#/Vol] 7.7 10*3/uL Normal 4.5-11.5 The [facility] Comment on above: Performed By: #### Kelly HERNANDEZAT ####[facility] PATHOLOGY [id number] [place], [place], Consultson 09-02-2024 Business Banking Sales Assistant Authentication Interface Message Text Normal [facility] Business Banking Sales Assistant Authentication Interface Message Text Normal The [facility] Business [employer]ing Sales Assistant Authentication Interface Message Text Normal The [facility] HEPATIC FUNCTION PANELon Albumin [Mass/Vol] 3.6 g/dL Normal 3.5-5.7 The [facility] Comment on above: Performed By: #### Kelly Simon, HEPATIC, MG ####[facility] PATHOLOGY [id number] [place], ALK 160 IU/L High 34-104 The [facility] Comment on above: Performed By: #### Kelly Simon, HEPATIC, MG ####[facility] PATHOLOGY [id number] [place], ALT [Catalytic activity/Vol] 44 U/L Normal 7-52 The [facility] Comment on above: Performed By: #### Kelly Simon, HEPATIC, MG ####[facility] [id number] [place], AST [Catalytic activity/Vol] 26 U/L Normal 13-39 [facility] Comment on above: Performed By: #### Kelly Simon, HEPATIC, MG ####[facility] [id number] [place], Bilirubin [Mass/Vol] 3.4 mg/dL High 0.3-1.0 [facility] Comment on above: Performed By: #### Kelly Simon, HEPATIC, MG ####S PATHOLOGY [id number] [place], Bilirubin.direct [Mass/Vol] 1.18 mg/dL High 0.03-0.18 [facility] Comment on above: Performed By: #### Kelly Simon, HEPATIC, MG ####[facility] PATHOLOGY [id number] [place], Protein [Mass/Vol] 6.3 g/dL Normal 6.0-8.3 The [facility] Comment on above: Performed By: #### Kelly H8, HEPATIC, MG ####[facility] PATHOLOGY [id number] [place], MAGNESIUMon 09-02-2024 Magnesium [Mass/Vol] 2.1 mg/dL Normal 1.9-2.7 The [facility] Comment on above: Performed By: #### Kelly Simon, HEPATIC, MG ####[facility] PATHOLOGY [id number] [place], PROTHROMBIN TIME AND INRon 0 09-02-2024 INR Coag (PPP) [Relative time] 1.54 {INR} High 0.90-1.10 The [facility] Comment on above: Performed By: #### P T ####S PATHOLOGY CRPLARBDAF7897 [place], [place], PT Coag (PPP) [Time] 17.2 s High 9.7-12.9 The [facility] Comment on above: Performed By: #### P T ####S PATHOLOGY FPOSVAGGHG[address] [place] [address], Progress Noteson 09-02-2024 Business Banking Sales Assistant Authentication Interface Message Text Normal The [facility] Business Banking Sales Assistant Authentication Interface Message Text Normal [facility] [employer] Sales Assistant Authentication Interface Message Text Normal The [facility] US ASCITES SURVEY 4 QUADRANT Son 09-02-2024 US ASCITES SURVEY 4 QUADRANTS Normal [facility] BASIC METABOLIC PANELon 03-0 Anion gap [Moles/Vol] 19 mmol/L Normal 10-20 [facility] Comment on above: Performed By: #### C H8, MG ####[facility] [id number] [place], Calcium [Mass/Vol] 8.2 mg/dL Low 8.6-10.3 [facility] Comment on above: Performed By: #### C H8, MG ####[facility] UCGPZHCRHN7645 [place], Chloride [Moles/Vol] 103 mmol/L Normal 98-107 [facility] Comment on above: Performed By: #### Kelly H8, MG ####[facility] [id number] [place], CO2 [Moles/Vol] 19 mmol/L Low 21-31 [facility] Comment on above: Performed By: #### C H8, MG ####[facility] PATH[facility]Y UYRTFUIJNS6209 [place], Creatinine [Mass/Vol] 2.04 mg/dL High 0.70-1.30 [facility] Comment on above: Performed By: #### C H8, MG ####[facility] ATWUKZWXCY4409 [place], ESTIMATED GFR (CKD-EPI) 40 mL/min/1.73sqm Low >=60 [facility] Comment on above: Result Comment: 2020 [...] Inclusion of Race in Diagnosing Kidney Disease. Ethiopian Journal of Kidney Diseases 2021;79(2):268-88.e1.2. N Engl J Med 1 Vol. 385 Issue 19 Pages 7092-7363 Performed By: #### Kelly Simon, MG ####S PATHOLOGY TFHCIQOPPK5452 [place], Glucose [Mass/Vol] 134 mg/dL High 74-109 [facility] Comment on above: Performed By: #### Kelly Simon, MG ####S PATHOLOGY HBLMFKWNKF5439 [place], Potassium [Moles/Vol] 4.6 mmol/L Normal 3.5-5.0 The [facility] Comment on above: Result Comment: Hemo lysis present Performed By: #### Kelly Simon, MG ####[facility] PATHOLOGY [id number] [place], Sodium [Moles/Vol] 136 mmol/L Normal 136-145 [facility] Comment on above: Performed By: #### Kelly Simon, MG ####[facility] PATHOLOGY [id number] [place], Urea nitrogen [Mass/Vol] 34 mg/dL High 7-25 [facility] Comment on above: Performed By: #### Kelly Simon, MG ####S PATHOLOGY OECCZPFSBY9329 [place], CBC WITH DIFFERENTIALon 03-0 Basophils (Bld) [#/Vol] 0.03 10*3/uL Normal 0.00-0.20 [facility] Comment on above: Performed By: #### Kelly BCDSAT ####[facility] [id number] [place], Basophils/100 WBC (Bld) 0.5 % Normal <=1.9 [facility] Comment on above: Performed By: #### Kelly BCDSAT ####S PATHOLOGY PDBNGTFYXW5325 [place], Eosinophils (Bld) [#/Vol] 0.03 10*3/uL Normal 0.00-0.70 The [facility] Comment on above: Performed By: #### C BCDSAT ####[facility] PATHOLOGY [id number] [place], Eosinophils/100 WBC (Bld) 0.5 % Normal 0.1-4.0 [facility] Comment on above: Performed By: #### C BCDSAT ####[facility] PATHOLOGY [id number] [place], Erythrocyte distribution width (RBC) [Ratio] 14.0 % Normal 11.5-14.5 [facility] Comment on above: Performed By: #### C BCDSAT ####[facility] PATHOLOGY BEIMHYPSNR2623 [place], Hematocrit (Bld) [Volume fraction] 46.1 % Normal 41.0-53.0 [facility] Comment on above: Performed By: #### C BCDSAT ####[facility] PATHOLOGY [id number] [place] [address], Hemoglobin (Bld) [Mass/Vol] 15.2 g/dL Normal 13.9-16.3 The [facility] Comment on above: Performed By: #### C BCDSAT ####[facility] PATHOLOGY [id number] [place] [address], Lymphocytes (Bld) [#/Vol] 1.72 10*3/uL Normal 1.00-4.80 The [facility] Comment on above: Performed By: #### C BCDSAT ####[facility] PATHOLOGY EGTRWJYAYB[address] [place] [address], Lymphocytes/100 WBC (Bld) 28.0 % Normal 24.0-44.0 The [facility] Comment on above: Performed By: #### C BCDSAT ####[facility] PATHOLOGY [id number] [place], MCH (RBC) [Entitic mass] 34.1 pg High 26.0-34.0 The [facility] Comment on above: Performed By: #### C BCDSAT ####[facility] PATHOLOGY [id number] [place] [address], MCHC (RBC) [Mass/Vol] 33.0 g/dL Normal 32.0-35.9 [facility] Comment on above: Performed By: #### C MARYAT ####[facility] PATHOLOGY [id number] [place], MCV (RBC) [Entitic vol] 103 fL High 80-100 The [facility] Comment on above: Performed By: #### Kelly HERNANDEZAT ####[facility] PATHOLOGY [id number] [place] [address], Monocytes (Bld) [#/Vol] 0.56 10*3/uL Normal 0.20-1.00 The [facility] Comment on above: Performed By: #### C MARYAT ####[facility] PATHOLOGY [id number] [place] [address], Monocytes/100 WBC (Bld) 9.1 % Normal 2.0-11.0 The [facility] Comment on above: Performed By: #### Kelly HERNANDEZAT ####[facility] PATHOLOGY [id number] [place] [address], Neutrophils (Bld) [#/Vol] 3.80 10*3/uL Normal 1.50-8.00 The [facility] Comment on above: Performed By: #### Kelly HERNANDEZAT ####[facility] PATHOLOGY [id number] [place] [address], Neutrophils/100 WBC (Bld) 61.9 % Normal 31.0-76.0 The [facility] Comment on above: Performed By: #### C MARYAT ####[facility] PATHOLOGY [id number] [place] [address], Platelet mean volume (Bld) [Entitic vol] 8.2 fL Normal 7.5-11.2 The [facility] Comment on above: Performed By: #### Kelly HERNANDEZAT ####[facility] PATHOLOGY [id number] [place] [address], Platelets (Bld) [#/Vol] 198 10*3/uL Normal 150-400 The [facility] Comment on above: Performed By: #### Kelly HERNANDEZAT ####[facility] PATHOLOGY UWE[address]AVIH[address] [place] [address], [place], RBC (Bld) [#/Vol] 4.46 10*6/uL Low 4.50-5.90 [facility] Comment on above: Performed By: #### C BCDSAT ####S PATHOLOGY [id number] [place], WBC (Bld) [#/Vol] 6.1 10*3/uL Normal 4.5-11.5 [facility] Comment on above: Performed By: #### C BCDSAT ####S PATHOLOGY ZTGTWYNHUJ9827 [place], [place], Consultson 09-01-2024 Business Banking Sales Assistant Authentication Interface Message Text Normal The [facility] ED Noteson 09-01-2024 Business Banking Sales Assistant Authentication Interface Message Text Normal The [facility] ED Provider Noteson 09-02-19 Business Banking Sales Assistant Authentication Interface Message Text Sign out received at 0700. Briefly this is a 44M PMH HF, CKD, HTN presenting for HF, pending admission. VS reviewed, stable. Labs reviewed, notable for CKD, elevated hepatic enzymes, elevated BNP. Pending admission. Signed out to inpatient team. Normal [facility] FEUREA, BLOODon 09-01-2024 Creatinine [Mass/Vol] 2.10 mg/dL High 0.70-1.30 [facility] Comment on above: Performed By: #### F EUREAB ####S PATHOLOGY [id number] [place], Urea nitrogen [Mass/Vol] 36 mg/dL High 7-25 [facility] Comment on above: Performed By: #### F EUREAB ####[facility] [id number] [place], FRACTIONAL EXCRETION OF UREA on 09-01-2024 Creatinine [Mass/Vol] 2.04 mg/dL High 0.70-1.30 [facility] Comment on above: Order Comment: A res ult of <35% is consistent with prerenal cause of SCHUYLER. >50% is consistent with tubular causes. Use of FEUrea may be more accurate than FENa in detecting prerenal disease in patients concurrently taking diuretics. Performed By: #### F EUREAU ####S PATHOLOGY WAFCAXXHPV1445 [place], CREATININE, URINE 16 mg/dL Normal [facility] Comment on above: Order Comment: A res ult of <35% is consistent with prerenal cause of SCHUYLER. >50% is consistent with tubular causes. Use of FEUrea may be more accurate than FENa in detecting prerenal disease in patients concurrently taking diuretics. Performed By: #### F VOLODYMYRU ####S PATHOLOGY [id number] [place], FRACTIONAL EXCRETION OF UREA 27 % Normal [facility] Comment on above: Order Comment: A res ult of <35% is consistent with prerenal cause of SCHUYLER. >50% is consistent with tubular causes. Use of FEUrea may be more accurate than FENa in detecting prerenal disease in patients concurrently taking diuretics. Performed By: #### F CASS ####[facility] PATHOLOGY [id number] [place], UREA NITROGEN, URINE 73 mg/dL Normal [facility] Comment on above: Order Comment: A res ult of <35% is consistent with prerenal cause of SCHUYLER. >50% is consistent with tubular causes. Use of FEUrea may be more accurate than FENa in detecting prerenal disease in patients concurrently taking diuretics. Performed By: #### F VOLODYMYRU ####[facility] [facility] [id number] [place], [place], UREA(BLOOD) 34 mg/dL High 8-22 The [facility] Comment on above: Order Comment: A res ult of <35% is consistent with prerenal cause of SCHUYLER. >50% is consistent with tubular causes. Use of FEUrea may be more accurate than FENa in detecting prerenal disease in patients concurrently taking diuretics. Performed By: #### F CASS ####[facility] PATH[facility]Y [id number] [place], [place], H AND Timo 09-01-2024 Business Banking Sales Assistant Authentication Interface Message Text Normal [facility] Business Banking Sales Assistant Authentication Interface Message Text Normal [facility] HIGH SENSITIVITY CARDIAC TRO PONIN I (HS-CTNI) SERIAL TESTING 0HR (BASELINE)on 09-01-2024 HS-CTNI 0 HR (BASELINE) 16 ng/L High <=15 [facility] Comment on above: Order Comment: Lowell monalisa troponin can result from acute myocardial [...] Performed By: #### H STRP SERIAL ####[facility] [id number] [place], [id number] MAGNESIUMon 09-01-2024 Magnesium [Mass/Vol] 2.0 mg/dL Normal 1.9-2.7 [facility] Comment on above: Result Comment: Hemo lysis present Performed By: #### C H8, MG ####[facility] [id number] [place], [address] Progress Noteson 09-01-2024 Business Banking Sales Assistant Authentication Interface Message Text Pt refused the labs stating am done for the day . notified Normal [facility] Business Banking Sales Assistant Authentication Interface Message Text Normal [facility] US LIVER/GALL BLADDER/PANCRE ASon 09-01-2024 US LIVER/GALL BLADDER/PANCREAS Normal [facility] B TYPE NATRIURETIC PEPTIDEon 08-31-2024 Natriuretic peptide B (Bld) [Mass/Vol] 3904.0 pg/mL High <100.0 [facility] Comment on above: Performed By: #### B PL ####[facility] [id number] [place] , [id number] BASIC METABOLIC PANELon Anion gap [Moles/Vol] 14 mmol/L Normal 10-20 [facility] Comment on above: Performed By: #### C HGissel, HEPATIC, LIP ####[facility] [id number] [place], [id number] Calcium [Mass/Vol] 9.5 mg/dL Normal 8.6-10.3 [facility] Comment on above: Performed By: #### Kelly HGissel, HEPATIC, LIP ####[facility] [id number] [place] , [id number] Chloride [Moles/Vol] 100 mmol/L Normal 98-107 [facility] Comment on above: Performed By: #### C HGissel, HEPATIC, LIP ####[facility] [id number] [place] , [id number] CO2 [Moles/Vol] 29 mmol/L Normal 21-31 [facility] Comment on above: Performed By: #### C H8, HEPATIC, LIP ####[facility] [id number] [place] , [id number] Creatinine [Mass/Vol] 1.93 mg/dL High 0.70-1.30 [facility] Comment on above: Performed By: #### C H8, HEPATIC, LIP ####[facility] [id number] [facility] [place], [id number] ESTIMATED GFR (CKD-EPI) 43 mL/min/1.73sqm Low >=60 [...] Inclusion of Race in Diagnosing Kidney Disease. Ethiopian Journal of Kidney Diseases 2021;79(2):268-88.e1.2. N Engl J Med 1 Vol. 385 Issue 19 Pages 7621-3945 Performed By: #### C H8, HEPATIC, LIP ####[facility] [id number] [place], [id number] Glucose [Mass/Vol] 115 mg/dL High 74-109 The [facility] Comment on above: Performed By: #### C H8, HEPATIC, LIP ####[facility] [id number] [place], [id number] Potassium [Moles/Vol] 3.6 mmol/L Normal 3.5-5.0 [facility] Comment on above: Performed By: #### C H8, HEPATIC, LIP ####[facility] [id number] [place], [id number] Sodium [Moles/Vol] 139 mmol/L Normal 136-145 [facility] Comment on above: Performed By: #### C H8, HEPATIC, LIP ####[facility] [id number] [place], [id number] Urea nitrogen [Mass/Vol] 34 mg/dL High 7-25 [facility] Comment on above: Performed By: #### C H8, HEPATIC, LIP ####[facility] [id number] [place], [id number] CBC WITH DIFFERENTIALon 0 Basophils (Bld) [#/Vol] 0.00 10*3/uL Normal 0.00-0.20 The [facility] Comment on above: Performed By: #### C BCDSAT ####[facility] [id number] [place], [place] Basophils/100 WBC (Bld) 0.5 % Normal <=1.9 [facility] Comment on above: Performed By: #### C BCDSAT ####[facility] PATHOLOGY [id number] [place], [id number] Eosinophils (Bld) [#/Vol] 0.00 10*3/uL Normal 0.00-0.70 [facility] Comment on above: Performed By: #### C BCDSAT ####[facility] [id number] [place], [place] Eosinophils/100 WBC (Bld) 0.3 % Normal 0.1-4.0 [facility] Comment on above: Performed By: #### C BCDSAT ####[facility] [id number] [place], [place] Erythrocyte distribution width (RBC) [Ratio] 13.9 % Normal 11.5-14.5 [facility] Comment on above: Performed By: #### C BCDSAT ####[facility] PATHOLOGY [id number] [place], [id number] Hematocrit (Bld) [Volume fraction] 45.9 % Normal 41.0-53.0 [facility] Comment on above: Performed By: #### C BCDSAT ####[facility] [id number] [place], [place] Hemoglobin (Bld) [Mass/Vol] 14.9 g/dL Normal 13.9-16.3 [facility] Comment on above: Performed By: #### C BCDSAT ####[facility] [id number] [place], [id number] Lymphocytes (Bld) [#/Vol] 2.20 10*3/uL Normal 1.00-4.80 [facility] Comment on above: Performed By: #### C BCDSAT ####[facility] PATHOLOG[facility] [id number] [place], [id number] Lymphocytes/100 WBC (Bld) 25.7 % Normal 24.0-44.0 [facility] Comment on above: Performed By: #### C BCDSAT ####[facility] PATHOLOGY [id number] [place] , [id number] MCH (RBC) [Entitic mass] 33.9 pg Normal 26.0-34.0 [facility] Comment on above: Performed By: #### C BCDSAT ####[facility] PIQHKAHMMM3985 [place] , [id number] MCHC (RBC) [Mass/Vol] 32.6 g/dL Normal 32.0-35.9 [facility] Comment on above: Performed By: #### C BCDSAT ####[facility] [id number] [place] , [id number] MCV (RBC) [Entitic vol] 104 fL High 80-100 [facility] Comment on above: Performed By: #### C BCDSAT ####[facility] PATHOLOG[facility] [id number] [place] , [id number] Monocytes (Bld) [#/Vol] 0.50 10*3/uL Normal 0.20-1.00 [facility] Comment on above: Performed By: #### C BCDSAT ####[facility] [id number] [place] , [id number] Monocytes/100 WBC (Bld) 5.6 % Normal 2.0-11.0 [facility] Comment on above: Performed By: #### C BCDSAT ####[facility] [id number] [place] , [id number] Neutrophils (Bld) [#/Vol] 5.70 10*3/uL Normal 1.50-8.00 [facility] Comment on above: Performed By: #### C BCDSAT ####[facility] [id number] [place] [id number] Neutrophils/100 WBC (Bld) 67.9 % Normal 31.0-76.0 [facility] Comment on above: Performed By: #### C BCDSAT ####[facility] PATHOLOG[facility] [id number] [place] [id number] Nucleated RBC (Bld) [#/Vol] 10*3/uL Normal [facility] Comment on above: Performed By: #### C BCDSAT ####[facility] PATH[facility] [id number] [place], [id number] Nucleated RBC (Bld) [#/Vol] 0.01 10*3/uL Normal [facility] Comment on above: Performed By: #### C BCDSAT ####[facility] PATHOLOGY [id number] [place], [id number] Platelet mean volume (Bld) [Entitic vol] 8.4 fL Normal 7.5-11.2 [facility] Comment on above: Performed By: #### C BCDSAT ####[facility] PATHOLOG[facility] [id number] [place] , [id number] Platelets (Bld) [#/Vol] 238 10*3/uL Normal 150-400 [facility] Comment on above: Performed By: #### C BCDSAT ####[facility] PATHOLOG[facility] [id number] [place] , [id number] RBC (Bld) [#/Vol] 4.40 10*6/uL Low 4.50-5.90 The [facility] Comment on above: Performed By: #### C BCDSAT ####[facility] [id number] [place] , [id number] WBC (Bld) [#/Vol] 8.4 10*3/uL Normal 4.5-11.5 [facility] Comment on above: Performed By: #### C BCDSAT ####[facility] PATHOLOGY [id number] [place] , [id number] ED Noteson 08-31-2024 Business Banking Sales Assistant Authentication Interface Message Text Report given to CRISTINE Valdez Normal [facility] ED Provider Noteson 09-01-19 Business Banking Sales Assistant Authentication Interface Message Text Normal [facility] HEPATIC FUNCTION PANELon Albumin [Mass/Vol] 4.2 g/dL Normal 3.5-5.7 [facility] Comment on above: Performed By: #### C Bonilla8, HEPATIC, LIP ####[facility] [id number] [place] , [id number] ALK 170 IU/L High 34-104 [facility] Comment on above: Performed By: #### Kelly Simon, HEPATIC, LIP ####[facility] [id number] [place] , [id number] ALT [Catalytic activity/Vol] 53 U/L High 7-52 [facility] Comment on above: Performed By: #### Kelly Simon, HEPATIC, LIP ####[facility] [id number] [place] , [id number] AST [Catalytic activity/Vol] 20 U/L Normal 13-39 [facility] Comment on above: Performed By: #### Kelly HGissel, HEPATIC, LIP ####[facility] [id number] [place], [id number] Bilirubin [Mass/Vol] 3.4 mg/dL High 0.3-1.0 [facility] Comment on above: Performed By: #### C H8, HEPATIC, LIP ####[facility] [id number] [place] , [id number] Bilirubin.direct [Mass/Vol] 1.30 mg/dL High 0.03-0.18 [facility] Comment on above: Performed By: #### C H8, HEPATIC, LIP ####[facility] [id number] [place] , [id number] Protein [Mass/Vol] 6.8 g/dL Normal 6.0-8.3 [facility] Comment on above: Performed By: #### C H8, HEPATIC, LIP ####[facility] [id number] [facility] , [id number] LIPASEon 08-31-2024 LIP 9 IU/L Low 11-82 [facility] Comment on above: Performed By: #### C H8, HEPATIC, LIP ####[facility] [id number] [facility] , [id number] Patient Instructionson 08-31 Business Banking Sales Assistant Authentication Interface Message Text Normal [facility] Progress Notes - NoteWritero n 08-31-2024 Business Banking Sales Assistant Authentication Interface Message Text Normal The [facility] XR CHEST PA+LAT 2 VIEWSon XR CHEST PA+LAT 2 VIEWS Normal The [facility] Telephone Encounteron 2024 Business Banking Sales Assistant Authentication Interface Message Text Normal The [facility] AUTOIMMUNE MULTIPLEX PANELon 08-27-2024 XOCHITL SCREEN Negative Normal Negative [facility] Comment on above: Order Comment: ds DN A Reference Range:< or = to 4 IU/cK-Mowurtsn2-9 IU/mL-Indeterminate> or = to 10 IU/mL-Positiveds DNA Reference Range:< or = to 4 IU/eI-Ovgdqpcg5-7 IU/mL-Indeterminate> or = to 10 IU/mL-PositiveA negative screen reflects the following tests as negative-dsDNA Antibody, SS-A Antibody, SS-B Antibody, Centromere Antibody, Hogan Antibody, Hogan/SPEECH LANGUAGE PATHOLOGY ASSISTANT Antibody, SPEECH LANGUAGE PATHOLOGY ASSISTANT Antibody, Scleroderma-70 Antibody, JUAN JOSE-1 Antibody, Ribosomal P Antibody, Chromatin Antibody. Performed By: #### P HOS, FT3, T4 F, VITD25, xochitl ####S PATHOLOGY [id number] [place], [place], BASIC METABOLIC PANELon 08-01 Anion gap [Moles/Vol] 18 mmol/L Normal 10-20 [facility] Comment on above: Performed By: #### M G, TSH HS, CALEB, SYPTOTALTPPA, 09052-4, VITB12, CH8 ####[facility] [id number] [place], Calcium [Mass/Vol] 9.6 mg/dL Normal 8.6-10.3 [facility] Comment on above: Performed By: #### M G, TSH HS, CALEB, SYPTOTALTPPA, 95453-2, VITB12, CH8 ####S PATHOLOGY [id number] [place], Chloride [Moles/Vol] 99 mmol/L Normal 98-107 The [facility] Comment on above: Performed By: #### M G, TSH HS, CALEB, SYPTOTALTPPA, 84168-5, VITB12, CH8 ####S PATHOLOGY [id number] [place], CO2 [Moles/Vol] 30 mmol/L Normal 21-31 [facility] Comment on above: Performed By: #### M G, TSH HS, CALEB, SYPTOTALTPPA, 66502-8, VITB12, CH8 ####S PATHOLOGY [id number] [place], Creatinine [Mass/Vol] 2.04 mg/dL High 0.70-1.30 The [facility] Comment on above: Performed By: #### M G, TSH HS, CALEB, SYPTOTALTPPA, 01624-3, VITB12, CH8 ####[facility] PATHOLOGY [id number] [place], ESTIMATED GFR (CKD-EPI) 40 mL/min/1.73sqm Low >=60 The [facility] Comment on above: Result Comment: [...] Inclusion of Race in Diagnosing Kidney Disease. Ethiopian Journal of Kidney Diseases 2021;79(2):268-88.e1.2. N Engl J Med 2020 Vol. 385 Issue 19 Pages 7691-2452 Performed By: #### M G, TSH HS, CALEB, SYPTOTALTPPA, 93936-6, VITB12, CH8 ####S PATHOLOGY DYGUUEZQRF2282 [place], Glucose [Mass/Vol] 110 mg/dL High 74-109 The [facility] Comment on above: Performed By: #### M G, TSH HS, CALEB, SYPTOTALTPPA, 55571-4, VITB12, CH8 ####[facility] PATHOLOGY [id number] [place], Potassium [Moles/Vol] 4.2 mmol/L Normal 3.5-5.0 The [facility] Comment on above: Performed By: #### M G, TSH HS, CALEB, SYPTOTALTPPA, 87308-0, VITB12, CH8 ####[facility] PATHOLOGY [id number] [place], Sodium [Moles/Vol] 143 mmol/L Normal 136-145 The [facility] Comment on above: Performed By: #### M G, TSH HS, CALEB, SYPTOTALTPPA, 03064-2, VITB12, CH8 ####[facility] PATHOLOGY [id number] [place] [address], Urea nitrogen [Mass/Vol] 51 mg/dL High 7-25 The [facility] Comment on above: Performed By: #### M G, TSH HS, CALEB, SYPTOTALTPPA, 27109-1, VITB12, CH8 ####[facility] PATHOLOGY [id number] [place], COMPLETE BLOOD COUNTon 08-27 Erythrocyte distribution width (RBC) [Ratio] 13.2 % Normal 11.5-14.5 The [facility] Comment on above: Performed By: #### C BC ####[facility] PATHOLOGY [id number] [place] [address], Hematocrit (Bld) [Volume fraction] 41.2 % Normal 41.0-53.0 The [facility] Comment on above: Performed By: #### C BC ####[facility] PATHOLOGY [id number] [place] [address], Hemoglobin (Bld) [Mass/Vol] 13.4 g/dL Low 13.9-16.3 The [facility] Comment on above: Performed By: #### C BC ####[facility] PATHOLOGY [id number] [place], MCH (RBC) [Entitic mass] 33.5 pg Normal 26.0-34.0 The [facility] Comment on above: Performed By: #### C BC ####S PATHOLOGY [id number] [place], MCHC (RBC) [Mass/Vol] 32.5 g/dL Normal 32.0-35.9 The [facility] Comment on above: Performed By: #### C BC ####[facility] PATHOLOGY [id number] [place], MCV (RBC) [Entitic vol] 103 fL High 80-100 [facility] Comment on above: Performed By: #### C BC ####[facility] PATHOLOGY [id number] [place], Platelet mean volume (Bld) [Entitic vol] 8.0 fL Normal 7.5-11.2 [facility] Comment on above: Performed By: #### C BC ####[facility] PATHOLOGY [id number] [place], Platelets (Bld) [#/Vol] 238 10*3/uL Normal 150-400 The [facility] Comment on above: Performed By: #### C BC ####[facility] PATHOLOGY [id number] [place], RBC (Bld) [#/Vol] 4.00 10*6/uL Low 4.50-5.90 The [facility] Comment on above: Performed By: #### C BC ####[facility] PATHOLOGY [id number] [place], WBC (Bld) [#/Vol] 6.6 10*3/uL Normal 4.5-11.5 The [facility] Comment on above: Performed By: #### C BC ####S PATHOLOGY [id number] [place], FERRITINon 08-27-2024 CALEB 119.2 ng/mL Normal 23.9-336.2 The [facility] Comment on above: Performed By: #### M G, TSH HS, CALEB, SYPTOTALTPPA, 16139-3, VITB12, CH8 ####S PATHOLOGY RFMOEVJUSO8945 [place], FULL LIPID PROFILEon 025 Cholesterol [Mass/Vol] 204 mg/dL High <200 Th e [facility] Comment on above: Result Comment: Michaela rable: < 200 mg/dLBorderline High: 200-239 mg/dLHigh: > = 240 mg/dL Performed By: #### H EPATIC, FETIBC, HDL ####[facility] PATHOLOGY [id number] [place], Cholesterol in LDL [Mass/Vol] 162 mg/dL High <100 The [facility] Comment on above: Performed By: #### H EPATIC, FETIBC, HDL ####[facility] PATHOLOGY [id number] [place] [address], Cholesterol.total/Chol esterol in HDL [Mass ratio] 7.29 {ratio} High <5.00 The [facility] Comment on above: Performed By: #### H EPATIC, FETIBC, HDL ####[facility] PATHOLOGY [id number] [place], HDL CHOL 28 mg/dL Low >40 The [facility] Comment on above: Performed By: #### H EPATIC, FETIBC, HDL ####S PATHOLOGY [id number] [place], LDL/HDL 5.79 High <3.57 The [facility] Comment on above: Performed By: #### H EPATIC, FETIBC, HDL ####S PATHOLOGY JKUIMKPNDM1860 [place], NON-HDL CHOLESTEROL 176 mg/dL High <130 The [facility] Comment on above: Performed By: #### H EPATIC, FETIBC, HDL ####S PATHOLOGY GMSOVZZQWI5316 [place], Triglyceride [Mass/Vol] 106 mg/dL Normal <150 The [facility] Comment on above: Result Comment: Norm al: < 150 mg/dLBorderline High: 150-199 mg/dLHigh: 200-499 mg/dLVery High: > = 500 mg/dL Performed By: #### FELIPE GUNDERSONC, HDL ####[facility] PATHOLOGY OXKOCEARGE1850 [place], GC/CHLAMYDIA/TRICHOMONAS AMP LIFICATIONon 08-27-2024 GC/CHLAMYDIA/TRICHOMON AMPLIFICATION CHLAMYDIA AMPLIFICATION: Negative GC AMPLIFICATION: Negative TRICHOMONAS AMPLIFICATION: Negative Normal Negative The [facility] Comment on above: Order Comment: This test is performed using an automated nucleic acid amplification assay ([employer] Performed By: #### Carmen CT ####[facility] Wvldyutfj[address] [place], [place] [id number] HEPATIC FUNCTION PANELon Albumin [Mass/Vol] 4.1 g/dL Normal 3.5-5.7 The [facility] Comment on above: Performed By: #### FELIPE GUNDERSONC, HDL ####[facility] PATHOLOGY [id number] [place], ALK 174 IU/L High 34-104 The [facility] Comment on above: Performed By: #### FELIPE GUNDERSONC, HDL ####[facility] PATHOLOGY [id number] [place], ALT [Catalytic activity/Vol] 105 U/L High 7-52 The [facility] Comment on above: Performed By: #### FELIPE GUNDERSONC, HDL ####[facility] PATHOLOGY [id number] [place], AST [Catalytic activity/Vol] 51 U/L High 13-39 The [facility] Comment on above: Performed By: #### FELIPE GUNDERSONC, HDL ####S PATHOLOGY [id number] [place], Bilirubin [Mass/Vol] 3.8 mg/dL High 0.3-1.0 The [facility] Comment on above: Performed By: #### FELIPE GUNDERSONC, HDL ####S PATHOLOGY [id number] [place], Bilirubin.direct [Mass/Vol] 1.44 mg/dL High 0.03-0.18 [facility] Comment on above: Performed By: #### H TICO FETIBC, HDL ####[facility] PATHOLOGY [id number] [place], Protein [Mass/Vol] 7.1 g/dL Normal 6.0-8.3 The [facility] Comment on above: Performed By: #### H TICO FETIBC, HDL ####[facility] PATHOLOGY [id number] [place], HEPATITIS A IGM ANTIBODYon 0 08-27-2024 HEP A IGM Non-Reactive Normal Nonreactive The [facility] Comment on above: Performed By: #### C ORE, ANTI-HBS, HCV, HEP A TOT, HEP A IGM, HBSAG, CORE M ####[facility] PATHOLOGY [id number] [place] [address], HEPATITIS A TOTAL ANTIBODYon 08-27-2024 HEP A TOT Non-Reactive Normal Nonreactive The [facility] Comment on above: Performed By: #### C ORE, ANTI-HBS, HCV, HEP A TOT, HEP A IGM, HBSAG, CORE M ####[facility] PATHOLOGY [id number] [place] [address], HEPATITIS B CORE ANTIBODYon 08-27-2024 CORE Non-Reactive Normal Nonreactive The [facility] Comment on above: Performed By: #### C ORE, ANTI-HBS, HCV, HEP A TOT, HEP A IGM, HBSAG, CORE M ####[facility] PATHOLOGY [id number] [place] [address], HEPATITIS B CORE ANTIBODY IG 08-27-2024 CORE M Non-Reactive Normal Nonreactive The [facility] Comment on above: Performed By: #### C ORE, ANTI-HBS, HCV, HEP A TOT, HEP A IGM, HBSAG, CORE M ####[facility] PATHOLOGY [id number] [place] [address], HEPATITIS B SURFACE ANTIBODY on 08-27-2024 ANTI-HBS < 3.1 Normal [facility] Comment on above: Order Comment: Nonre active: Samples < 7.5 mIU/mLReactive: Samples >/= 10.0 mIU/mLThe accepted criteria for immunity to HBV is anti-HBs activity >/= 10 mIU/mL, as defined by the WHO International Reference Preparation. Performed By: #### C ORE, ANTI-HBS, HCV, HEP A TOT, HEP A IGM, HBSAG, CORE M ####[facility] PATHOLOGY FLGOWCZKLE7548 [place], HEPATITIS B SURFACE ANTIGENo n 08-27-2024 HBSAG Non-Reactive Normal Non-Reactive [facility] Comment on above: Performed By: #### C ORE, ANTI-HBS, HCV, HEP A TOT, HEP A IGM, HBSAG, CORE M ####[facility] PATHOLOGY [id number] [place], HEPATITIS C ANTIBODYon 08-27 HCV Non-Reactive Normal Nonreactive [facility] Comment on above: Performed By: #### C ORE, ANTI-HBS, HCV, HEP A TOT, HEP A IGM, HBSAG, CORE M ####[facility] PATHOLOGY [id number] [place] [address], HIV 1 and 2 Ab and HIV 1 p24 Ag panel IAon 08-27-2024 HIV AG-AB SCREEN Non-Reactive Normal Non-Reactive [facility] Comment on above: Order Comment: HIV I nformation: ???[place] Rev. code 3701.243(E):This information has been disclosed [...] #### M G, TSH HS, CALEB, SYPTOTALTPPA, 56559-1, VITB12, CH8 ####S PATHOLOGY [id number] [place], [place], IRON AND TIBCon 08-27-2024 % SAT CORRECT PRD 14 % Low 20-55 [facility] System Comment on above: Performed By: #### H TICO FETIBC, HDL ####S PATHOLOGY [id number] [place], [place], FE CORRECT PRD 61 ug/dL Normal 50-212 The [facility] Comment on above: Performed By: #### H EPAMISAEL FETIBC, HDL ####[facility] PATHOLOGY [id number] [place], [place], TIBC CORRECT PRD 430 ug/mL High 250-410 [facility] Comment on above: Performed By: #### H TICO FETIBC, HDL ####[facility] PATHOLOGY [id number] [place], [place], TRANSFER CORRECT PRD 307 mg/dL Normal 203-362 [facility] Comment on above: Performed By: #### H TICO FETIBC, HDL ####[facility] PATHOLOGY [id number] [place], [place], MAGNESIUMon 08-27-2024 Magnesium [Mass/Vol] 2.4 mg/dL Normal 1.9-2.7 The [facility] Comment on above: Performed By: #### M G, TSH HS, CALEB, SYPTOTALTPPA, 28112-5, VITB12, CH8 ####[facility] PATHOLOGY [id number] [place], [place], MICROALBUMIN, URINEon 2024 CREATININE, URINE 426 mg/dL Normal The [facility] Comment on above: Order Comment: Note updated reference ranges. Performed By: #### U R MA ####S PATHOLOGY [id number] [place], [place], MICRO-ALBUMIN, URINE 212 mg/L Normal The [facility] Comment on above: Order Comment: Note updated reference ranges. Performed By: #### U R MA ####S PATHOLOGY [id number] [place], [place], MICRO-ALBUMIN/CREAT RATIO 50 mg/G High <=30 The [facility] Comment on above: Order Comment: Note updated reference ranges. Performed By: #### U R MA ####[facility] PATHOLOGY [id number] [place], [place], NT PRO-BNPon 08-27-2024 Natriuretic peptide B (Bld) [Mass/Vol] 13405 pg/mL High <=450 The [facility] Comment on above: Order Comment: Resul t: <300 pg/mL (All ages).Interpretation: Negative. Heart failure unlikely.Result: 300-450 pg/mL (<50 years), 300-900 pg/mL (50-75 years), 300-1800 pg/mL (>75 years).Interpretation: Indeterminate. Consider other reasons for NT Pro-BNP elevation.Result: >450 pg/mL (<50 years), >900 pg/mL (50-75 years), >1800 pg/mL (>75 years).Interpretation: Positive. Heart failure likely. Performed By: #### N T-PROBNP ####[facility] PATHOLOGY [id number] [place], [place], PHOSPHORUSon 08-27-2024 Phosphate [Mass/Vol] 4.7 mg/dL Normal 2.5-5.0 [facility] Comment on above: Performed By: #### P HOS, FT3, T4 F, VITD25, xochitl ####[facility] PATHOLOGY [id number] [place], [place], Patient Instructionson 08-27 Business Banking Sales Assistant Authentication Interface Message Text Normal The [facility] Progress Noteson 08-27-2024 Business Banking Sales Assistant Authentication Interface Message Text Identity was confirmed by verifying patient name and date of . Blood drawn for patient. Blood obtained from right and left hand, using 21 gauge butterfly. Patient denies discomfort, bleeding controlled, bandage applied. Site appears normal. Normal The [facility] [employer]ing Sales Assistant Authentication Interface Message Text Identification was verified by patient verbalizing his name and date of . Normal [facility] [employer] Sales Assistant Authentication Interface Message Text Normal The [facility] SYPHILIS TOTAL/TPPAon 2024 SYPHILIS TOTAL (IGG/IGM) Non-Reactive Normal Non-Reactive [facility] Comment on above: Order Comment: No re sults found for: TPPANo components found for: FTANo serologic evidence of syphilis.If recent exposure/early infection is suspected, repeat testing in 2-4 weeks. Performed By: #### M G, TSH HS, CALEB, SYPTOTALTPPA, 39516-4, VITB12, CH8 ####[facility] PATHOLOGY [id number] [place], [place], TPPA Normal [facility] Comment on above: Order Comment: No re sults found for: TPPANo components found for: FTANo serologic evidence of syphilis.If recent exposure/early infection is suspected, repeat testing in 2-4 weeks. Performed By: #### M G, TSH HS, CALEB, SYPTOTALTPPA, 68143-0, VITB12, CH8 ####[facility] PATHOLOGY [id number] [place], [place], THYROXINE (T4), FREEon 08-27 T4 F 1.40 ng/dL High 0.61-1.12 [facility] Comment on above: Performed By: #### P HOS, FT3, T4 F, VITD25, xochitl ####[facility] PATHOLOGY [id number] [place], TRIIODOTHYRONINE (T3), FREEo n 08-27-2024 FT3 2.8 pg/mL Normal 2.5-3.9 [facility] Comment on above: Performed By: #### P HOS, FT3, T4 F, VITD25, xochitl ####[facility] PATHOLOGY [id number] [place], [place], TSHon 08-27-2024 TSH 0.566 uIU/mL Normal 0.450-5.330 [facility] Comment on above: Performed By: #### M G, TSH HS, CALEB, SYPTOTALTPPA, 85246-9, VITB12, CH8 ####[facility] PATHOLOGY [id number] [place], [place], Telephone Encounteron 2024 Business Banking Sales Assistant Authentication Interface Message Text Normal [facility] URINALYSIS,AUTO-IN OFFICEon 08-27-2024 BILIRUBIN, URINE POC Positive Abnormal Negative [facility] Comment on above: Order Comment: TEST PERFORMED AT:[facility] [place] [address] Performed By: #### 8 1003 ####[facility] Dlonrfgaa7543 [place] [address] BLOOD, URINE POC Trace Abnormal Negative [facility] Comment on above: Order Comment: TEST PERFORMED AT:[place] [address] Performed By: #### 8 1003 ####[facility] Atowrnlsp2276 [place] [phone] CLARITY, POC Clear Normal [facility] Comment on above: Order Comment: TEST PERFORMED AT:[place] [address] Performed By: #### 8 1003 ####[facility] Azrwlldhm3604 [place] [phone] COLOR, POC Hcaya Normal [facility] Comment on above: Order Comment: TEST PERFORMED AT:[place] [address] Performed By: #### 8 1003 ####[facility] Ccloivphb2029 [place] [phone] GLUCOSE, URINE POC Negative Normal Negative The [facility] Comment on above: Order Comment: TEST PERFORMED AT:[place] [address] Performed By: #### 8 1003 ####[facility] Mpzonvhtg8857 [place] [phone] KETONES, URINE POC Trace Abnormal Negative The [facility] Comment on above: Order Comment: TEST PERFORMED AT:[place] [address] Performed By: #### 8 1003 ####[facility] Oeqgetmxo0827 [place] [phone] LEUKOCYTES, URINE POC Negative Normal Negative The [facility] Comment on above: Order Comment: TEST PERFORMED AT:[place] [address] Performed By: #### 8 1003 ####[facility] Iboelmuse8204 [place] [phone] NITRITES, URINE POC Negative Normal Negative The [facility] Comment on above: Order Comment: TEST PERFORMED AT:[place] [address] Performed By: #### 8 1003 ####[facility] Ggjpgugub2391 [place], [place] PH, URINE POC 5.0 Normal 5.0-8.0 [facility] Comment on above: Order Comment: TEST PERFORMED AT:[place] [address] Performed By: #### 8 1003 ####[facility] Agqxstjkj7590 [place], [place] PROTEIN, URINE POC 100 Abnormal Negative [facility] Comment on above: Order Comment: TEST PERFORMED AT:[place] [address] Performed By: #### 8 1003 ####[facility] Rjzdpxmwq5135 [place], [place] SPECIFIC GRAVITY, POC >=1.030 Normal 1.005 - 1.030 [facility] Comment on above: Order Comment: TEST PERFORMED AT:[place] [address] Performed By: #### 8 1003 ####[facility] Qxdkvibsq3956 [place], [place] UROBILINOGEN, URINE POC 2.0 Abnormal 0.2 - 1.0 [facility] Comment on above: Order Comment: TEST PERFORMED AT:[place] [address] Performed By: #### 8 1003 ####[facility] Icocvzqiw6923 [place], [place] URINE CULTUREon 08-27-2024 Bacteria identified Cx Nom (U) C URINE: No growth of greater than 1,000 CFU/ml Normal [facility] Comment on above: Performed By: #### C URINE ####[facility] Idfpurddb0484 [place], [place] VITAMIN B12 (CYANOCOBALAMIN) on 08-27-2024 Cobalamin (Vitamin B12) [Mass/Vol] 927 pg/mL High 180-914 [facility] Comment on above: Order Comment: Defic ient: <= 145 pg/mLInsufficient: 145 - 180 pg/mLSufficient: 180 - 914 pg/mL Performed By: #### M G, TSH HS, CALEB, SYPTOTALTPPA, 20861-5, VITB12, CH8 ####[facility] PATHOLOGY IEXSHNIPLS5318 [place], [place], VITAMIN D, 25-HYDROXYon 08-01 VITD25 13.3 ng/mL Low 30-100 [facility] Comment on above: Order Comment: Defic ient : <20.0 ng/mLInsufficient : 20.0-29.9 ng/mLSufficient : 30.0 - 100.0 ng/mLPotential Toxicity : >100.0 ng/mL Performed By: #### P HOS, FT3, T4 F, VITD25, xochitl ####[facility] PATHOLOGY MEIUKKKTEM9107 [place], [place], 36on 08-25-2024 36 Normal [facility] CBC W Auto Differential pane l (Bld)on 08-25-2024 Basophils (Bld) [#/Vol] 0 10*3/uL 0.0 - 0.2 10*3/uL [facility] Basophils/100 WBC (Bld) 0.2 % 0.0 - 2.0 % [facility] Eosinophils (Bld) [#/Vol] 0 10*3/uL 0.0 - 0.5 10*3/uL [facility] Eosinophils/100 WBC (Bld) 0.1 % 0.0 - 6.0 % [facility] Erythrocyte distribution width (RBC) [Ratio] 12.6 % 11.5 - 15.0 % [facility] Hematocrit (Bld) [Volume fraction] 41.3 % 40.0 - 52.0 % [facility] Hemoglobin (Bld) [Mass/Vol] 13.6 g/dL 13.0 - 18.0 g/dL [facility] Immature granulocytes (Bld) [#/Vol] 0 10*3/uL NINF - 0.1 10*3/uL [facility] Immature granulocytes/100 WBC (Bld) 0.2 % 0.0 - 2.0 % [facility] Interpretation and review of laboratory results Abnormal [facility] Lymphocytes (Bld) [#/Vol] 2.4 10*3/uL 1.0 - 4.3 10*3/uL [facility] Lymphocytes/100 WBC (Bld) 29.7 % 15.0 - 45.0 % [facility] MCH (RBC) [Entitic mass] 33.2 pg 26.0 - 34.0 pg [facility] MCHC (RBC) [Mass/Vol] 32.9 % 30.5 - 36.0 % [facility] MCV (RBC) [Entitic vol] 100.7 fL High 77.0 - 99.0 fL [facility] Monocytes (Bld) [#/Vol] 0.7 10*3/uL 0.0 - 0.9 10*3/uL [facility] Monocytes/100 WBC (Bld) 8.2 % 5.0 - 13.0 % [facility] Neutrophils (Bld) [#/Vol] 5.1 10*3/uL 1.8 - 7.5 10*3/uL [facility] Neutrophils/100 WBC (Bld) 61.6 % 38.0 - 82.0 % [facility] Nucleated RBC/100 WBC (Bld) [Ratio] 0 % [facility] Platelet mean volume (Bld) [Entitic vol] 9.5 fL 9.0 - 12.7 fL [facility] Platelets (Bld) [#/Vol] 227 10*3/uL 140 - 440 10*3/uL [facility] RBC (Bld) [#/Vol] 4.1 10*6/uL Low 4.40 - 5.9 0 10*6/uL [facility] WBC (Bld) [#/Vol] 8.2 10*3/uL 3.6 - 10.7 10*3/uL [facility] CBC WITH AUTO DIFFERENTIALon 08-25-2024 Basophils (Bld) [#/Vol] 0.0 10*3/uL Normal 0.0-0.2 [facility] Comment on above: Performed By: #### L [id number] ####Event Marketing Intern: LESLEE HERNANDEZ ([id number])[facility] ([facility])[address] [place] [address] Basophils/100 WBC (Bld) 0.2 % Normal 0.0-2.0 [facility] Comment on above: Performed By: #### L [id number] ####Event Marketing Intern: LESLEE HERNANDEZ ([phone])[facility] [place] ([facility])[address] Eosinophils (Bld) [#/Vol] 0.0 10*3/uL Normal 0.0-0.5 [facility] Comment on above: Performed By: #### L [id number] ####Event Marketing Intern: LESLEE HERNANDEZ ([id number])[facility] [place] ([facility])[address] Eosinophils/100 WBC (Bld) 0.1 % Normal 0.0-6.0 [facility] Comment on above: Performed By: #### L [id number] ####Event Marketing Intern: LESLEE HERNANDEZ ([phone])[facility])[address] Erythrocyte distribution width (RBC) [Ratio] 12.6 % Normal 11.5-15.0 [facility] Comment on above: Performed By: #### L [id number] ####Event Marketing Intern: LESLEE HERNANDEZ ([phone])[facility] ([facility])[address] Hematocrit (Bld) [Volume fraction] 41.3 % Normal 40.0-52.0 [facility] Comment on above: Performed By: #### L [id number] ####Event Marketing Intern: LESLEE HERNANDEZ ([phone])[facility] [place] ([facility])[address] [place] [address] Hemoglobin (Bld) [Mass/Vol] 13.6 g/dL Normal 13.0-18.0 [facility] Comment on above: Performed By: #### L [id number] ####Event Marketing Intern: LESLEE HERNANDEZ ([phone])[facility] ([facility])[address] IMMATURE GRANS % 0.2 % Normal 0.0-2.0 [facility] Comment on above: Performed By: #### L [id number] ####Event Marketing Intern: LESLEE HERNANDEZ ([phone])[facility] ([facility])[address] [place] [address] IMMATURE GRANS ABSOLUTE 0.0 10*3/uL Normal <0.1 [facility] Comment on above: Performed By: #### L [id number] ####Event Marketing Intern: LESLEE HERNANDEZ ([phone])[facility] ([facility])[address] Lymphocytes (Bld) [#/Vol] 2.4 10*3/uL Normal 1.0-4.3 [facility] Comment on above: Performed By: #### L [id number] ####Event Marketing Intern: LESLEE HERNANDEZ ([phone])[facility] ([facility])[address] [place] [address] Lymphocytes/100 WBC (Bld) 29.7 % Normal 15.0-45.0 [facility] Comment on above: Performed By: #### L [id number] ####Event Marketing Intern: LESLEE HERNANDEZ ([phone])[facility] ([facility])[address] [place] [address] MCH (RBC) [Entitic mass] 33.2 pg Normal 26.0-34.0 [facility] Comment on above: Performed By: #### L [id number] ####Event Marketing Intern: LESLEE HERNANDEZ ([id number])[facility] ([facility])[address] [place] [address] MCHC 32.9 % Normal 30.5-36.0 [facility] Comment on above: Performed By: #### L [id number] ####Event Marketing Intern: LESLEE HERNANDEZ ([id number])[facility] ([facility])[address] [place] [address] MCV (RBC) [Entitic vol] 100.7 fL High 77.0-99.0 [facility] Comment on above: Performed By: #### L [id number] ####Event Marketing Intern: LESLEE TURKTYRONE ([phone])[facility] [place] ([facility])[address] Monocytes (Bld) [#/Vol] 0.7 10*3/uL Normal 0.0-0.9 [facility] Comment on above: Performed By: #### L [id number] ####Event Marketing Intern: LESLEE TURKTYRONE ([phone])[facility] [place] ([facility])[address] Monocytes/100 WBC (Bld) 8.2 % Normal 5.0-13.0 [facility] Comment on above: Performed By: #### L [id number] ####Event Marketing Intern: LESLEE MCNEILLRAMON ([phone])[facility] ([facility])[address] NEUTROPHILS ABSOLUTE 5.1 10*3/uL Normal 1.8-7.5 [facility] Comment on above: Performed By: #### L [id number] ####Event Marketing Intern: LESLEE HERNANDEZ ([id number])[facility] [place] ([facility])[address] Neutrophils/100 WBC (Bld) 61.6 % Normal 38.0-82.0 [facility] Comment on above: Performed By: #### L [id number] ####Event Marketing Intern: LESLEE HERNANDEZ ([phone])[facility] [place] ([facility])[address] NRBC 0.0 /100 WBCs Normal 0.0-2.0 [facility] Comment on above: Performed By: #### L [id number] ####Event Marketing Intern: LESLEE HERNANDEZ ([id number])[facility] [place] ([facility])[address] Platelet mean volume (Bld) [Entitic vol] 9.5 fL Normal 9.0-12.7 [facility] Comment on above: Performed By: #### L [id number] ####Event Marketing Intern: LESLEE HERNANDEZ ([id number])[facility] ([facility])[address] Platelets (Bld) [#/Vol] 227 10*3/uL Normal 140-440 [facility] Comment on above: Performed By: #### L [id number] ####Event Marketing Intern: LESLEE HERNANDEZ ([id number])[facility] [place] ([facility])[address] RBC (Bld) [#/Vol] 4.10 10*6/uL Low 4.40-5.90 [facility] Comment on above: Performed By: #### L [id number] ####Event Marketing Intern: LESLEE HERNANDEZ ([id number])[facility] [place] ([facility])[address] WBC (Bld) [#/Vol] 8.2 10*3/uL Normal 3.6-10.7 [facility] Comment on above: Performed By: #### L [id number] ####Event Marketing Intern: LESLEE HERNANDEZ ([id number])[facility] [place] ([facility])[address] COMPREHENSIVE METABOLIC PANE Ming 08-25-2024 Albumin [Mass/Vol] 3.4 g/dL Low 3.5-5.0 [facility] Comment on above: Performed By: #### Pedro [place], [id number], [id number] ####Event Marketing Intern: LESLEE HERNANDEZ ([id number])[facility] [place] ([facility])[address] ALP [Catalytic activity/Vol] 161 U/L High 40-150 [facility] Comment on above: Performed By: #### Pedro AB17, [id number], [id number] ####Event Marketing Intern: LESLEE HERNANDEZ ([phone])[facility] [place] ([facility])[address] [place] [address] [place] ALT [Catalytic activity/Vol] 110 U/L High <40 [facility] Comment on above: Performed By: #### Pedro AB17, [id number], [id number] ####Event Marketing Intern: LESLEE HERNANDEZ ([id number])[facility] [place] ([facility])[address] Anion gap [Moles/Vol] 14 mmol/L High 3-13 [facility] Comment on above: Performed By: #### Pedro AB17, [id number], [id number] ####Event Marketing Intern: LESLEE HERNANDEZ ([id number])[facility] [place] ([facility])155 [place] [address] [place] AST [Catalytic activity/Vol] 75 U/L High <34 [facility] Comment on above: Performed By: #### Pedro AB17, [id number], [id number] ####Event Marketing Intern: LESLEE HERNANDEZ ([id number])[facility] [place] ([facility])155 [place] [address] [place] Bilirubin [Mass/Vol] 3.0 mg/dL High <1.2 [facility] Comment on above: Performed By: #### Pedro AB17, [id number], [id number] ####Event Marketing Intern: LESLEE HERNANDEZ ([id number])[facility] [place] ([facility])155 [place] [address] [place] Calcium [Mass/Vol] 9.3 mg/dL Normal 8.4-10.2 [facility] Comment on above: Performed By: #### Pedro AB17, [id number], [id number] ####Event Marketing Intern: LESLEE HERNANDEZ ([id number])[facility] [place] ([facility])155 [place] [address] [place] Chloride [Moles/Vol] 102 mmol/L Normal 98-107 [facility] Comment on above: Performed By: #### Pedro AB17, [id number], [id number] ####Event Marketing Intern: LESLEE HERNANDEZ ([id number])[facility] [place] ([facility])[address] CO2 [Moles/Vol] 22 mmol/L Normal 22-29 [facility] Comment on above: Performed By: #### Pedro AB17, [id number], [id number] ####Event Marketing Intern: LESLEE HERNANDEZ ([id number])[facility] ([facility])[address] Creatinine [Mass/Vol] 2.06 mg/dL High 0.72-1.25 [facility] Comment on above: Performed By: #### Pedro AB17, [id number], [id number] ####Event Marketing Intern: LESLEE HERNANDEZ ([id number])[facility] ([facility])[address] GLOMERULAR FILTRATION RATE ML/MIN/1.73 SQ M.PREDICTED 39.5 mL/min/1.73m*2 Low >60.0 [facility] Comment on above: Result Comment: Calc ulation based on the Chronic Kidney Disease Epidemiology Collaboration (CKD-EPI) equation refit without adjustment for race Performed By: #### Pedro AB17, [id number], [id number] ####Event Marketing Intern: LESLEE HERNANDEZ ([id number])[facility] ([facility])[address] [place] [address] Glucose [Mass/Vol] 113 mg/dL High 74-100 [facility] Comment on above: Performed By: #### Pedro AB17, [id number], [id number] ####Event Marketing Intern: LESLEE HERNANDEZ ([phone])[facility] ([facility])[address] Potassium [Moles/Vol] 3.9 mmol/L Normal 3.5-5.1 [facility] Comment on above: Result Comment: [facility] potassium values may be up to 0.5 mmol/L lower than serum values. Performed By: #### Pedro AB17, [id number], [id number] ####Event Marketing Intern: LESLEE HERNANDEZ ([id number])[facility] ([facility])[address] Protein [Mass/Vol] 6.6 g/dL Normal 6.4-8.3 [facility] Comment on above: Performed By: #### L AB17, [id number], [id number] ####Event Marketing Intern: LESLEE HERNANDEZ ([id number])[facility] ([facility])[address] Sodium [Moles/Vol] 138 mmol/L Normal 136-145 [facility] Comment on above: Performed By: #### L AB17, GEC111, [id number] ####Event Marketing Intern: LESLEE HERNANDEZ ([id number])[facility] ([facility])[address] Urea nitrogen [Mass/Vol] 51 mg/dL High 8-21 [facility] Comment on above: Performed By: #### Pedro AB17, [id number], [id number] ####Event Marketing Intern: LESLEE HERNANDEZ ([id number])[facility] ([facility])[address] [place] [address] Comprehensive metabolic 1998 panelon 08-25-2024 Albumin [Mass/Vol] 3.4 g/dL Low 3.5 - 5.0 g/dL [facility] ALP [Catalytic activity/Vol] 161 U/L High 40 - 150 U/L [facility] ALT [Catalytic activity/Vol] 110 U/L High NINF - 40 U/L [facility] Anion gap [Moles/Vol] 14 mmol/L High 3 - 13 mmol/L [facility] AST [Catalytic activity/Vol] 75 U/L High NINF - 34 U/L [facility] Bilirubin [Mass/Vol] 3 mg/dL High NINF - 1.2 mg/dL [facility] Calcium [Mass/Vol] 9.3 mg/dL 8.4 - 10. 2 mg/dL [facility] Chloride [Moles/Vol] 102 mmol/L 98 - 10 7 mmol/L [facility] CO2 [Moles/Vol] 22 mmol/L 22 - 29 mmol/L [facility] Creatinine [Mass/Vol] 2.06 mg/dL High 0.72 - 1.25 mg/dL [facility] GFR/1.73 sq M.predicted (S/P/Bld) [Vol rate/Area] 39.5 mL/min Low - PINF [facility] Comment on above: Calculation based on the Chronic Kidney Disease Epidemiology Collaboration (CKD-EPI) equation refit without adjustment for race Glucose [Mass/Vol] 113 mg/dL High 74 - 100 mg/dL [facility] Interpretation and review of laboratory results Abnormal [facility] Potassium [Moles/Vol] 3.9 mmol/L 3.5 - 5.1 mmol/L [facility] Comment on above: Plasma potassium heidi ues may be up to 0.5 mmol/L lower than serum values. Protein [Mass/Vol] 6.6 g/dL 6.4 - 8.3 g/dL [facility] Sodium [Moles/Vol] 138 mmol/L 136 - 145 mmol/L [facility] Urea nitrogen [Mass/Vol] 51 mg/dL High 8 - 21 mg/dL [facility] ECG 12-LEADon 08-25-2024 ECG 12-LEAD IMPRESSION: Sinus tachycardia Left atrial enlargement Nonspecific IVCD with LAD Left ventricular hypertrophy ST elevation secondary to IVCD Electronically Signed On 08-25-2024 17:33:52 EST by Jamal Dia Normal [facility] ED Nursing Noteon 08-25-2024 ED Nursing Note Patient refusing covid/flu swab stating I would know if I had that and I haven't gotten it since it came out. Dr. Schaffer notified and aware. Normal [facility] ED Provider Noteon ED Provider Note Normal [facility] HIGH SENSITIVITY TROPONIN, S ERIAL BASELINEon 08-25-2024 TROPONIN HS SERIAL BASELINE 28 ng/L Normal <=35 [facility] Comment on above: Result Comment: In i ndividuals presenting with symptoms > 2h, a baseline troponin <= 5 ng/L suggests acutecardiac injury is unlikely and further serial testing is generally not indicated. Performed By: #### L AB17, [id number], [id number] ####Event Marketing Intern: LESLEE HERNANDEZ ([phone])[facility] [place] ([facility])[address] [place] [address] HIGH SENSITIVITY TROPONIN, S ERIAL, SECOND TESTon 08-25-2024 2H TROPONIN HS (SERIAL 2ND TROPONIN) 28 ng/L Normal <=35 [facility] Comment on above: Result Comment: Risi ng or falling troponin delta below 2 ng/L as compared to baseline value suggests thatacute cardiac injury is unlikely. Performed By: #### L [id number] ####Event Marketing Intern: LESLEE HERNANDEZ ([phone])[facility] ([facility])[address] NT PRO BNPon 08-25-2024 Natriuretic peptide B (Bld) [Mass/Vol] 86503 pg/mL High <125 [facility] Comment on above: Performed By: #### L AB17, [id number], [id number] ####Event Marketing Intern: LESLEE HERNANDEZ ([phone])[facility] ([facility])[address] Natriuretic peptide B [Mass/ Vol]on 08-25-2024 Interpretation and review of laboratory results Abnormal [facility] Natriuretic peptide B (Bld) [Mass/Vol] 94050 pg/mL High NINF - 125 pg/mL [facility] No Panel Informationon 08-25 2h Troponin HS (Serial 2nd Troponin) 28 ng/L NINF - 35 ng/L [facility] Comment on above: Rising or falling tr oponin delta below 2 ng/L as compared to baseline value suggests that acute cardiac injury is unlikely. Interpretation and review of laboratory results Normal [facility] Interpretation and review of laboratory results Normal [facility] Troponin HS Serial Baseline 28 ng/L NINF - 35 ng/L [facility] Comment on above: In individuals prese nting with symptoms > 2h, a baseline troponin <= 5 ng/L suggests acute cardiac injury is unlikely and further serial testing is generally not indicated. [facility] XR Chest Single viewon 08-25 Moderate cardiomegaly, unchanged. No acute pulmonary abnormality. Report Dictated on Electronically Signed By: Eugene Louies DO Electronically Signed Date/Time: 08/25/2024 3:12 AM [facility] EMERGENCY [facility]PARTMENT [employer] [facility] Patient Name: CARLO MEDINA : 1980 [...] BONES/JOINTS: Thoracic degenerative spondylosis. No acute fracture. [facility] Eugene Louise DO - 08/25/2024 [facility] Name: [facility] MEDINA : 1980 [id number] Exam Date/Time: 08/25/2024 02:27 Procedure: XR CHEST [...] Electronically Signed Date/Time: 08/25/2024 3:12 AM EST [facility] Radiology Study observation (narrative) [facility] XR Chest Single viewOrdered By: Eugene Louise on 08-25-2024 [facility] Work Phone: 36on 08-23-2024 36 Normal [facility] 36 Discharged with hear t failure. Needs 72 hour post discharge phone call. Normal [facility] CT ABDOMEN PELVIS WO IV CONT RASTon 08-23-2024 CT ABDOMEN PELVIS WO IV CONTRAST Normal [facility] CT Abdomen and Pelvis WO con traston 08-23-2024 1. Cardiomegaly. 2. Small amount of free fluid within the dependent pelvis. Trace amount of perihepatic free fluid. Report Dictated on Electronically Signed By: Juan Pereira MD Electronically Signed Date/Time: 08/23/2024 6:56 AM EST [facility] Patient Name: CARLO MEDINA : 1980 [...] umbilical hernia. Osseous structures: No osseous abnormalities. [facility] Juan Pereira MD - 08/23/2024 Patient [...] Electronically Signed Date/Time: 08/23/2024 6:56 AM EST [employer] Machine [facility] Radiology Study observation (narrative) [employer] ECG 12-LEADon 08-23-2024 ECG 12-LEAD [facility] ED NOTEon 08-23-2024 ED NOTE HNO ID: [id number] Author: LORAINE ZAYAS, Medic Service: ? Author Type: Radiopharmacist and Flight Purser Type: ED Notes Filed: 08/23/2024 03:55 Note Text: Refused C trop Normal [facility] ED NOTE HNO ID: [id number] Author: JC CASEY ST Service: Emergency Medicine Author Type: Flight Purser Type: ED Notes Filed: 08/23/2024 03:49 Note [...] third trop needing to be drawn. Normal [facility] ED Nursing Noteon 08-23-2024 ED Nursing Note Normal [facility] ED Nursing Note Pt. Ambulated to bathroom. Will monitor for pt. Return to room. Normal [facility] ED Nursing Note Normal [facility] ED Provider Noteon ED Provider Note Normal [facility] No Panel Informationon 08-23 P [place] 58 degrees [facility] NM Interval 129 ms [facility] QRS [place] -78 degrees [facility] QRSD Interval 155 ms [facility] QT Interval 380 ms [facility] QTC Interval 535 ms [facility] T Wave [place] 76 degrees [facility] Sinus tachycardia Ventricular premature complex Probable left atrial enlargement Nonspecific IVCD with LAD Left ventricular hypertrophy Anterior Q waves, possibly due to LVH No change compared to previous ekg Electronically Signed On 08-23-2024 07:36:51 EST by Vic Loaiza CV Vic Powell M D - 08/23/2024 IMPRESSION: Sinus tachycardia Ventricular premature complex Probable left atrial enlargement Nonspecific IVCD with LAD Left ventricular hypertrophy Anterior Q waves, possibly due to LVH No change compared to previous ekg Electronically Signed On 08-23-2024 07:36:51 EST by Vic Loaiza [facility] Progress Noteon 08-23-2024 Progress Note Normal [facility] Vital signson 08-23-2024 Heart rate 119 /min bpm [facility] XR Chest Single viewon 08-23 1. No acute cardiopulmonary process. 2. Cardiomegaly. Report Dictated on Electronically Signed By: Juan Pereira MD Electronically Signed Date/Time: 08/23/2024 6:43 AM EST [facility] Patient Name: CARLO MEDINA : 1980 [...] changes of the thoracic spine are noted. [facility] Juan Pereira MD - 08/23/2024 Patient [...] Electronically Signed Date/Time: 08/23/2024 6:43 AM EST [facility] Radiology Study observation (narrative) [employer] XR Chest Single viewOrdered By: Juan Pereira on 08-23-2024 [employer] Machine Work Phone: CBC W Auto Differential pane l (Bld)on 08-22-2024 Basophils (Bld) [#/Vol] 0.03 10*3/uL Normal <0.11 [facility] Comment on above: Order Comment: Speci men Type: BLOOD SPECIMENOrdering Facility: [facility] Address: [address] [place] [address] Performed By: #### 5 7021-8 ####[facility]ORATORYCLIA [id number] [address] STATES [facility] Basophils/100 WBC (Bld) 0.3 % Normal [facility] Comment on above: Order Comment: Speci men Type: BLOOD SPECIMENOrdering Facility: [facility] Address: [address] [place] [address] Performed By: #### 5 7021-8 ####[facility]ORATORYCLIA [id number] [address] Differential cell count method Nom (Bld) Auto Normal [facility] Comment on above: Order Comment: Speci men Type: BLOOD SPECIMENOrdering Facility: [facility] Address: [address] [place] [address] Performed By: #### 5 7021-8 ####[facility]ORATORYCLIA [id number] [address] [place] Eosinophils (Bld) [#/Vol] 0.05 10*3/uL Normal <0.46 [facility] Comment on above: Order Comment: Speci men Type: BLOOD SPECIMENOrdering Facility: [facility] Address: [address] [place] [address] Performed By: #### 5 7021-8 ####[facility]ORATORYCLIA [id number] [address] STATES [facility] Eosinophils/100 WBC (Bld) 0.6 % Normal [facility] Comment on above: Order Comment: Speci men Type: BLOOD SPECIMENOrdering Facility: [facility] Address: [address] [place] [address] Performed By: #### 5 7021-8 ####[facility]ORATORYCLIA [id number] [address] [place] Erythrocyte distribution width (RBC) [Ratio] 12.7 % Normal 11.5-15.0 [facility] Comment on above: Order Comment: Speci men Type: BLOOD SPECIMENOrdering Facility: [facility] Address: [address] [place] [address] Performed By: #### 5 7021-8 ####[facility] LABORATORYCLIA [id number] [address] [place] Hematocrit (Bld) [Volume fraction] 45.0 % Normal 39.0-51.0 [facility] Comment on above: Order Comment: Speci men Type: BLOOD SPECIMENOrdering Facility: [facility] Address: [address] [place] [address] Performed By: #### 5 7021-8 ####[facility] LABORATORYCLIA [id number] [address] [place] Hemoglobin (Bld) [Mass/Vol] 14.3 g/dL Normal 13.0-17.0 [facility] Comment on above: Order Comment: Speci men Type: BLOOD SPECIMENOrdering Facility: [facility] Address: [address] [place] [address] Performed By: #### 5 7021-8 ####[facility] LABORATORYCLIA [id number] [address] [place] Immature granulocytes (Bld) [#/Vol] 10*3/uL Normal <0.10 [facility] Comment on above: Order Comment: Speci men Type: BLOOD SPECIMENOrdering Facility: [facility] Address: [address] [place] [address] Performed By: #### 5 7021-8 ####[facility]ORATORYCLIA [id number] [address] [place] Immature granulocytes/100 WBC (Bld) 0.2 % Normal [facility] Comment on above: Order Comment: Speci men Type: BLOOD SPECIMENOrdering Facility: [facility] Address: [address] [place] [address] Performed By: #### 5 7021-8 ####[facility]ORATORYCLIA [id number] [place] [address] [facility] [place] Lymphocytes (Bld) [#/Vol] 2.99 10*3/uL Normal 1.00-4.00 [facility] Comment on above: Order Comment: Speci men Type: BLOOD SPECIMENOrdering Facility: [facility] Address: [address] [place] [address] Performed By: #### 5 7021-8 ####[facility] LABORATORYCLIA [id number] [address] STATES OF [facility] Lymphocytes/100 WBC (Bld) 33.1 % Normal [facility] Comment on above: Order Comment: Speci men Type: BLOOD SPECIMENOrdering Facility: [facility] Address: [address] [place] [address] Performed By: #### 5 7021-8 ####[facility] LABORATORYCLIA [id number] [place] [address] [place] MCH (RBC) [Entitic mass] 33.8 pg Normal 26.0-34.0 [facility] Comment on above: Order Comment: Speci men Type: BLOOD SPECIMENOrdering Facility: [facility] Address: [address] [place] [address] Performed By: #### 5 7021-8 ####[facility] LABORATORYCLIA [id number] [address] [place] MCHC (RBC) [Mass/Vol] 31.8 g/dL Normal 30.5-36.0 [facility] Comment on above: Order Comment: Speci men Type: BLOOD SPECIMENOrdering Facility: [facility] Address: [address] [place] [address] Performed By: #### 5 7021-8 ####[facility] LABORATORYCLIA [id number] [place] [address] [place] MCV (RBC) [Entitic vol] 106.4 fL High 80.0-100.0 [facility] Comment on above: Order Comment: Speci men Type: BLOOD SPECIMENOrdering Facility: [facility] Address: [address] [place] [address] Performed By: #### 5 7021-8 ####[facility]ORATORYCLIA [id number] [place] [address] [place] Monocytes (Bld) [#/Vol] 0.70 10*3/uL Normal <0.87 [facility] Comment on above: Order Comment: Speci men Type: BLOOD SPECIMENOrdering Facility: [facility] Address: [address] [place] [address] Performed By: #### 5 7021-8 ####[facility]ORATORYCLIA [id number] [address] [place] Monocytes/100 WBC (Bld) 7.8 % Normal [facility] Comment on above: Order Comment: Speci men Type: BLOOD SPECIMENOrdering Facility: [facility] Address: [address] [place] [address] Performed By: #### 5 7021-8 ####[facility]ORATORYCLIA [id number] [address] [place] Neutrophils (Bld) [#/Vol] 5.24 10*3/uL Normal 1.45-7.50 [facility] Comment on above: Order Comment: Speci men Type: BLOOD SPECIMENOrdering Facility: [facility] Address: [address] [place] [address] Performed By: #### 5 7021-8 ####[facility]ORATORYCLIA [id number] [address] [place] Neutrophils/100 WBC (Bld) 58.0 % Normal [facility] Comment on above: Order Comment: Speci men Type: BLOOD SPECIMENOrdering Facility: [facility] Address: [address] [place] [address] Performed By: #### 5 7021-8 ####[facility]ORATORYCLIA [id number] [place] [address] [place] Nucleated RBC (Bld) [#/Vol] 10*3/uL Normal <0.01 [facility] Comment on above: Order Comment: Speci men Type: BLOOD SPECIMENOrdering Facility: [facility] Address: [address] [place], [place] [address] Performed By: #### 5 7021-8 ####[facility] LABORATORYCLIA [id number] [address] [place] Nucleated RBC/100 WBC (Bld) [Ratio] 0.0 /100 WBC Normal [facility] Comment on above: Order Comment: Speci men Type: BLOOD SPECIMENOrdering Facility: [facility] Address: [address] [place] [address] Performed By: #### 5 7021-8 ####[facility] LABORATORYCLIA [id number] [address] [place] Platelet mean volume (Bld) [Entitic vol] 8.8 fL Low 9.0-12.7 [facility] Comment on above: Order Comment: Speci men Type: BLOOD SPECIMENOrdering Facility: [facility] Address: [address] [place] [address] Performed By: #### 5 7021-8 ####[facility] LABORATORYCLIA [id number] [address] [place] Platelets (Bld) [#/Vol] 283 10*3/uL Normal 150-400 [facility] Comment on above: Order Comment: Speci men Type: BLOOD SPECIMENOrdering Facility: [facility] Address: [address] [place] [address] Performed By: #### 5 7021-8 ####[facility] LABORATORYCLIA [id number] [address] [place] RBC (Bld) [#/Vol] 4.23 10*6/uL Normal 4.20-6.00 [facility] Comment on above: Order Comment: Speci men Type: BLOOD SPECIMENOrdering Facility: [facility] Address: [facility] [place] [address] Performed By: #### 5 7021-8 ####[facility] LABORATORYCLIA [id number] [address] [place] WBC (Bld) [#/Vol] 9.03 10*3/uL Normal 3.70-11.00 [facility] Comment on above: Order Comment: Speci men Type: BLOOD SPECIMENOrdering Facility: [facility] Address: [address] [place] [address] Performed By: #### 5 7021-8 ####[facility] LABORATORYCLIA [id number] [place] [address] [facility] Comprehensive metabolic 2000 panelon 08-22-2024 Albumin [Mass/Vol] 3.9 g/dL Normal 3.9-4.9 [facility] Comment on above: Order Comment: Speci men Type: BLOOD SPECIMENOrdering Facility: [facility] Address: [address] [place] [address] Performed By: #### 2 4323-8, 3040-3, 67777-5, 27955-0 ####[facility] LABORATORYCLIA [id number] [address] STATES OF [facility] ALP [Catalytic activity/Vol] 197 U/L High 38-113 [facility] Comment on above: Order Comment: Speci men Type: BLOOD SPECIMENOrdering Facility: [facility] Address: [address] [place] [address] Performed By: #### 2 4323-8, 3040-3, 94843-7, 63643-2 ####[facility] LABORATORYCLIA [id number] [address] [place] ALT With P-5'-P [Catalytic activity/Vol] 60 U/L High 10-54 [facility] Comment on above: Order Comment: Speci men Type: BLOOD SPECIMENOrdering Facility: [facility] Address: [address] [place] [address] Performed By: #### 2 4323-8, 3040-3, 16739-6, 75575-2 ####[facility] LABORATORYCLIA [id number] [place] [id number] [place] Anion gap [Moles/Vol] 13 mmol/L Normal 8-15 [facility] Comment on above: Order Comment: Speci men Type: BLOOD SPECIMENOrdering Facility: [facility] Address: [address] [place] [address] Performed By: #### 2 4323-8, 3040-3, 42880-0, 82992-1 ####[facility] LABORATORYCLIA [id number] [place] [address] [place] AST With P-5'-P [Catalytic activity/Vol] 45 U/L High 14-40 [facility] Comment on above: Order Comment: Speci men Type: BLOOD SPECIMENOrdering Facility: [facility] Address: [address] [place] [address] Performed By: #### 2 4323-8, 3040-3, 86745-4, 64816-6 ####[facility] LABORATORYCLIA [id number] [place] [address] [place] Bilirubin [Mass/Vol] 1.4 mg/dL High 0.2-1.3 [facility] Comment on above: Order Comment: Speci men Type: BLOOD SPECIMENOrdering Facility: [facility] Address: [address] [place] [address] Performed By: #### 2 4323-8, 3040-3, 44686-8, 00986-2 ####[facility] LABORATORYCLIA [id number] [place] [address] [place] Calcium [Mass/Vol] 8.9 mg/dL Normal 8.5-10.2 [facility] Comment on above: Order Comment: Speci men Type: BLOOD SPECIMENOrdering Facility: [facility] Address: [address] [place] [address] Performed By: #### 2 4323-8, 3040-3, 97114-1, 77974-2 ####[facility] LABORATORYCLIA [id number] [place] [id number] [place] Chloride [Moles/Vol] 98 mmol/L Normal 98-107 [facility] Comment on above: Order Comment: Speci men Type: BLOOD SPECIMENOrdering Facility: [facility] Address: [address] [place] [address] Performed By: #### 2 4323-8, 3040-3, 17367-7, 69270-7 ####[facility] COUNTYCLIA [id number] [place] [address] [place] CO2 [Moles/Vol] 29 mmol/L Normal 22-30 [facility] Comment on above: Order Comment: Speci men Type: BLOOD SPECIMENOrdering Facility: [facility] Address: [address] [place] [address] Performed By: #### 2 4323-8, 3040-3, 25411-7, ####[facility] COUNTYCLIA [id number] [place] [id number] [place] Creatinine [Mass/Vol] 1.93 mg/dL High 0.73-1.22 [facility] Comment on above: Order Comment: Speci men Type: BLOOD SPECIMENOrdering Facility: [facility] Address: [address] [place] [address] Performed By: #### 2 4323-8, 3040-3, 04204-8, ####[facility] CARE CENTERIA [id number] [address] OF [facility] Creatinine and Glomerular filtration rate.predicted panel (S/P/Bld) 43 mL/min/1.73m??? Low >=60 [facility] Comment on above: Order Comment: Speci men Type: BLOOD SPECIMENOrdering Facility: [facility] Address: [address] [place] [address] Result Comment: Ella mated Glomerular Filtration Rate [...] GFR. Performed By: #### 2 4323-8, 3040-3, 53950-0, 67623-3 ####[facility] LABORATORYCLIA [id number] [place] [address] [place] Glucose [Mass/Vol] 130 mg/dL High 74-99 [facility] Comment on above: Order Comment: Speci men Type: BLOOD SPECIMENOrdering Facility: [facility] Address: [address] [place], [place] [address] Result Comment: The [place] Diabetes Association (ADA) provides guidance for cutoff [...] Standards of Medical Care in Diabetes 2016, [place] [employer]. Diabetes Care. 2016.39(Suppl 1). Performed By: #### 2 4323-8, 3040-3, 46642-1, 00827-2 ####[facility] LABORATORYCLIA [id number] [place] [address] [place] Potassium [Moles/Vol] 3.9 mmol/L Normal 3.7-5.1 [facility] Comment on above: Order Comment: Kimi men Type: BLOOD SPECIMENOrdering Facility: [facility] Address: [address] [place], [place] [address] Performed By: #### 2 4323-8, 3040-3, 49447-7, 79134-3 ####[facility] LABORATORYCLIA [id number] [place] [address] [place] Protein [Mass/Vol] 6.8 g/dL Normal 6.3-8.0 [facility] Comment on above: Order Comment: Kimi men Type: BLOOD SPECIMENOrdering Facility: [facility] Address: [address] [place] [id number] Performed By: #### 2 4323-8, 3040-3, 15275-8, 45810-0 ####[facility] LABORATORYCLIA [id number] [place], [place] [address] [place] [address] STATES OF [facility] Sodium [Moles/Vol] 140 mmol/L Normal 136-144 [facility] Comment on above: Order Comment: Speci men Type: BLOOD SPECIMENOrdering Facility: [facility] Address: [address] [place] [address] Performed By: #### 2 4323-8, 3040-3, 85371-3, 54175-7 ####[facility] LABORATORYCLIA [id number] [place] [id number] [facility] Urea nitrogen [Mass/Vol] 37 mg/dL High 9-24 [facility] Comment on above: Order Comment: Speci men Type: BLOOD SPECIMENOrdering Facility: [facility] Address: [address] [place] [address] Performed By: #### 2 4323-8, 3040-3, 92147-5, 44648-4 ####[facility] LABORATORYCLIA [id number] [address] ECG COMPLETEon 08-22-2024 ECG COMPLETE Ventricular Rate : 115 BPM Atrial Rate : 115 BPM P-R Interval : 132 ms QRS Duration : 146 ms Q-T Interval : 388 ms QTC Calculation(Bazett) : 536 ms Calculated P [place] : 52 degrees Calculated R [place] : -71 degrees Calculated T [place] : 81 degrees SINUS TACHYCARDIA LEFT ATRIAL ENLARGEMENT LEFT AXIS DEVIATION LEFT BUNDLE BRANCH BLOCK ABNORMAL ECG NO PREVIOUS ECGS AVAILABLE Confirmed by EMILIE CAM MD ([id number]) on 11/01/2024 10:13:23 PM NAME : CARLO MEDINA PID : [id number] : 1980 Gender : Male Race : Unknown ORD : [id number] Procedure Date : Aug 22 2024 21:24:29 Edit Date : Nov 01 2024 22:13:25 Diagnosis: SINUS TACHYCARDIA LEFT ATRIAL ENLARGEMENT LEFT AXIS DEVIATION LEFT BUNDLE BRANCH BLOCK ABNORMAL ECG NO PREVIOUS ECGS AVAILABLE Confirmed by EMILIE CAM MD ([id number]) on 11/01/2024 10:13:23 PM Test Reason : Chest Pain Location : 4 : AKED Overread By : EMILIE CAM MD Edited By : EMILIE CAM MD Referred By : , Acquired by : JC CASEY Normal [facility] ED Triage Noteon 08-22-2024 ED Triage Note HNO ID: [id number] Author: GRACE BOB PA-C Service: Emergency Medicine Author Type: Physician Pharmacy Care Coordinator Type: ED Triage Notes Filed: 08/22/2024 21:25 [...] around 4 PM today. Recent admission at [facility]. States has been compliant with his [...] ECG COMPLETE SIGNATURE: Grace Bob PA-C Normal [facility] HIGH SENSITIVITY TROPONIN T (INITIAL)on 08-22-2024 Troponin T.cardiac High sensitivity method [Mass/Vol] 35 ng/L High <12 [facility] Comment on above: Order Comment: Speci men Type: BLOOD SPECIMENOrdering Facility: [facility] Address: [address] [place] [address] Performed By: #### L [id number] ####[facility] LABORATORYCLIA [id number] [place] [address] [place] HIGH SENSITIVITY TROPONIN T (SECOND)on 08-22-2024 Troponin T.cardiac High sensitivity method [Mass/Vol] 35 ng/L High <12 [facility] Comment on above: Order Comment: Speci men Type: BLOOD SPECIMENOrdering Facility: [facility] Address: [address] [place] [address] Performed By: #### L [id number] ####[facility] LABORATORYCLIA [id number] [address] [place] Lipase SerPl-cCncon 08-22-19 25 Lipase [Catalytic activity/Vol] 34 U/L Normal 16-61 [facility] Comment on above: Order Comment: Speci men Type: BLOOD SPECIMEN Ordering Facility: [facility] Address: [address] [place] [address] Performed By: #### 2 4325-3 #### [facility] CLIA [id number] [address] STATES OF [facility] Magnesium SerPl-mCncon 08-22 Magnesium [Mass/Vol] 2.2 mg/dL Normal 1.7-2.3 [facility] Comment on above: Order Comment: Speci men Type: BLOOD SPECIMEN Ordering Facility: [facility] Address: [address] [place] [address] Performed By: #### 2 4325-3 #### [facility] CLIA [id number] [address] NT-proBNP SerPl-mCncon 08-22 Natriuretic peptide.B prohormone N-Terminal [Mass/Vol] 06441 pg/mL High <125 [facility] Comment on above: Order Comment: Speci men Type: BLOOD SPECIMEN Ordering Facility: [facility] Address: [address] [place] [address] Performed By: #### 2 4325-3 #### [facility] LABORATORY CLIA [id number] [address] [place] XR CHEST 2V FRONTAL/LATon [...] Large cardiac silhouette IMPRESSION: Enlarged cardiac silhouette. Plant Wrapper: PSCB Transcribe Date/Time: Aug 22 2024 11:55P Dictated by : RADHA ASHBY MD This examination was interpreted and the report reviewed and electronically signed by: RADHA ASHBY MD on Aug 22 2024 11:56PM EST [id number] Normal [facility] 30on 08-20-2024 30 Electronically charla d by Jacque Clark RN on 08/20/2024 at 12:54 PM Normal [facility] [id number] 08-20-2024 [id number] Normal [facility] CBC W Auto Differential pane l (Bld)on 08-20-2024 Basophils (Bld) [#/Vol] 0.1 10*3/uL 0.0 - 0.2 10*3/uL [facility] Basophils/100 WBC (Bld) 0.7 % 0.0 - 2.0 % [facility] Eosinophils (Bld) [#/Vol] 0.1 10*3/uL 0.0 - 0.5 10*3/uL [facility] Eosinophils/100 WBC (Bld) 1.2 % 0.0 - 6.0 % [facility] Erythrocyte distribution width (RBC) [Ratio] 12.4 % 11.5 - 15.0 % [facility] Hematocrit (Bld) [Volume fraction] 42.1 % 40.0 - 52.0 % [facility] Hemoglobin (Bld) [Mass/Vol] 14.2 g/dL 13.0 - 18.0 g/dL [facility] Immature granulocytes (Bld) [#/Vol] 0 10*3/uL NINF - 0.1 10*3/uL [facility] Immature granulocytes/100 WBC (Bld) 0.4 % 0.0 - 2.0 % [facility] Interpretation and review of laboratory results Abnormal [facility] Lymphocytes (Bld) [#/Vol] 2.5 10*3/uL 1.0 - 4.3 10*3/uL [facility] Lymphocytes/100 WBC (Bld) 29.9 % 15.0 - 45.0 % [facility] MCH (RBC) [Entitic mass] 33.2 pg 26.0 - 34.0 pg [facility] MCHC (RBC) [Mass/Vol] 33.7 % 30.5 - 36.0 % [facility] MCV (RBC) [Entitic vol] 98.4 fL 77.0 - 99.0 fL [facility] Monocytes (Bld) [#/Vol] 0.7 10*3/uL 0.0 - 0.9 10*3/uL [facility] Monocytes/100 WBC (Bld) 8.5 % 5.0 - 13.0 % [facility] Neutrophils (Bld) [#/Vol] 4.9 10*3/uL 1.8 - 7.5 10*3/uL [facility] Neutrophils/100 WBC (Bld) 59.3 % 38.0 - 82.0 % [facility] Nucleated RBC/100 WBC (Bld) [Ratio] 0 % [facility] Platelet mean volume (Bld) [Entitic vol] 8.9 fL Low 9.0 - 12.7 fL [facility] Platelets (Bld) [#/Vol] 291 10*3/uL 140 - 440 10*3/uL [facility] RBC (Bld) [#/Vol] 4.28 10*6/uL Low 4.40 - 5.9 0 10*6/uL [facility] WBC (Bld) [#/Vol] 8.2 10*3/uL 3.6 - 10.7 10*3/uL [facility] CBC WITH AUTO DIFFERENTIALon 08-20-2024 Basophils (Bld) [#/Vol] 0.1 10*3/uL Normal 0.0-0.2 [facility] Comment on above: Performed By: #### L [id number] ####Event Marketing Intern: NICOLE BOWERS ([phone])[facility] ([address] Basophils/100 WBC (Bld) 0.7 % Normal 0.0-2.0 [facility] Comment on above: Performed By: #### L [id number] ####Event Marketing Intern: NICOLE BOWERS ([phone])[facility])[address] [place] [address] Eosinophils (Bld) [#/Vol] 0.1 10*3/uL Normal 0.0-0.5 [facility] Comment on above: Performed By: #### L [id number] ####Event Marketing Intern: NICOLE BOWERS ([phone])[facility])[address] [place] [address] Eosinophils/100 WBC (Bld) 1.2 % Normal 0.0-6.0 [facility] Comment on above: Performed By: #### L [id number] ####Event Marketing Intern: NICOLE BOWERS ([phone])[facility])[address] [place] [address] Erythrocyte distribution width (RBC) [Ratio] 12.4 % Normal 11.5-15.0 [facility] Comment on above: Performed By: #### L [id number] ####Event Marketing Intern: NICOLE BOWERS ([id number])[facility])[address] [place] [address] Hematocrit (Bld) [Volume fraction] 42.1 % Normal 40.0-52.0 [facility] Comment on above: Performed By: #### L [id number] ####Event Marketing Intern: NICOLE BOWERS ([phone])[facility])[address] [place] [address] Hemoglobin (Bld) [Mass/Vol] 14.2 g/dL Normal 13.0-18.0 [facility] Comment on above: Performed By: #### L [id number] ####Event Marketing Intern: NICOLE BOWERS ([phone])[facility])[address] [place] [address] IMMATURE GRANS % 0.4 % Normal 0.0-2.0 [facility] Comment on above: Performed By: #### L [id number] ####Event Marketing Intern: NICOLE BOWERS ([phone])[facility])[address] [place] [address] IMMATURE GRANS ABSOLUTE 0.0 10*3/uL Normal <0.1 [facility] Comment on above: Performed By: #### L [id number] ####Event Marketing Intern: NICOLE BOWERS ([phone])[facility])[address] [place] [address] Lymphocytes (Bld) [#/Vol] 2.5 10*3/uL Normal 1.0-4.3 [facility] Comment on above: Performed By: #### L [id number] ####Event Marketing Intern: NICOLE BOWERS ([phone])[address] Lymphocytes/100 WBC (Bld) 29.9 % Normal 15.0-45.0 [facility] Comment on above: Performed By: #### L [id number] ####Event Marketing Intern: NICOLE BOWERS ([phone])[facility])[address] [place] [address] MCH (RBC) [Entitic mass] 33.2 pg Normal 26.0-34.0 [facility] Comment on above: Performed By: #### L [id number] ####Event Marketing Intern: NICOLE BOWERS ([id number])[address] MCHC 33.7 % Normal 30.5-36.0 [facility] Comment on above: Performed By: #### L [id number] ####Event Marketing Intern: NICOLE BOWERS ([id number])[address] MCV (RBC) [Entitic vol] 98.4 fL Normal 77.0-99.0 [facility] Comment on above: Performed By: #### L [id number] ####Event Marketing Intern: NICOLE BOWERS ([phone])[facility])[address] [place] [address] Monocytes (Bld) [#/Vol] 0.7 10*3/uL Normal 0.0-0.9 [facility] Comment on above: Performed By: #### L [id number] ####Event Marketing Intern: NICOLE BOWERS ([id number])[facility] ([facility])[address] [place] [address] Monocytes/100 WBC (Bld) 8.5 % Normal 5.0-13.0 [facility] Comment on above: Performed By: #### L [id number] ####Event Marketing Intern: NICOLE BOWERS ([phone])[facility] ([facility])[address] [place] [address] NEUTROPHILS ABSOLUTE 4.9 10*3/uL Normal 1.8-7.5 [facility] Comment on above: Performed By: #### L [id number] ####Event Marketing Intern: NICOLE BOWERS ([phone])[facility] ([facility])[address] [place] [address] Neutrophils/100 WBC (Bld) 59.3 % Normal 38.0-82.0 [facility] Comment on above: Performed By: #### L [id number] ####Event Marketing Intern: NICOLE BOWERS ([id number])[facility] ([facility])[address] [place] [address] NRBC 0.0 /100 WBCs Normal 0.0-2.0 [facility] Comment on above: Performed By: #### L [id number] ####Event Marketing Intern: NICOLE BOWERS ([phone])[facility] ([facility])[address] [place] [address] Platelet mean volume (Bld) [Entitic vol] 8.9 fL Low 9.0-12.7 [facility] Comment on above: Performed By: #### L [id number] ####Event Marketing Intern: NICOLE BOWERS ([id number])[facility] ([facility])[address] [place] [address] Platelets (Bld) [#/Vol] 291 10*3/uL Normal 140-440 [facility] Comment on above: Performed By: #### L [id number] ####Event Marketing Intern: NICOLE BOWERS ([phone])[facility])[address] [place] [address] RBC (Bld) [#/Vol] 4.28 10*6/uL Low 4.40-5.90 [facility] Comment on above: Performed By: #### L [id number] ####Event Marketing Intern: NICOLE BOWERS ([id number])[facility])[address] [place] [address] WBC (Bld) [#/Vol] 8.2 10*3/uL Normal 3.6-10.7 [facility] Comment on above: Performed By: #### L [id number] ####Event Marketing Intern: NICOLE BOWERS ([phone])[facility])[address] [place] [address] COMPREHENSIVE METABOLIC PANE Ming 08-20-2024 Albumin [Mass/Vol] 2.9 g/dL Low 3.5-5.0 [facility] Comment on above: Performed By: #### L AB103, LAB17 ####Event Marketing Intern: NICOLE BOWERS ([phone])[facility])[address] [place] [address] ALP [Catalytic activity/Vol] 198 U/L High 40-150 [facility] Comment on above: Performed By: #### L AB103, LAB17 ####Event Marketing Intern: NICOLE BOWERS ([id number])[facility])[address] [place] [address] ALT [Catalytic activity/Vol] 53 U/L High <40 [facility] Comment on above: Performed By: #### L AB103, LAB17 ####Event Marketing Intern: NICOLE BOWERS ([phone])[facility])[address] [place] [address] Anion gap [Moles/Vol] 9 mmol/L Normal 3-13 [facility] Comment on above: Performed By: #### L AB103, LAB17 ####Event Marketing Intern: NICOLE BOWERS ([id number])[facility] [place] [address] AST [Catalytic activity/Vol] 33 U/L Normal <34 [facility] Comment on above: Performed By: #### L AB103, LAB17 ####Event Marketing Intern: NICOLE BOWERS ([phone])[facility])[address] [place] [address] Bilirubin [Mass/Vol] 1.6 mg/dL High <1.2 [facility] Comment on above: Performed By: #### L AB103, LAB17 ####Event Marketing Intern: NICOLE BOWERS ([id number])[facility] ([facility])[address] [place] [address] Calcium [Mass/Vol] 7.6 mg/dL Low 8.4-10.2 [facility] Comment on above: Performed By: #### L AB103, LAB17 ####Event Marketing Intern: NICOLE BOWERS ([id number])[facility])[address] [place] [address] [place] Chloride [Moles/Vol] 101 mmol/L Normal 98-107 [facility] Comment on above: Performed By: #### L AB103, LAB17 ####Event Marketing Intern: NICOLE BOWERS ([id number])[facility] [place] [address] [place] CO2 [Moles/Vol] 28 mmol/L Normal 22-29 [facility] Comment on above: Performed By: #### L AB103, LAB17 ####Event Marketing Intern: NICOLE BOWERS ([id number])[facility] ([facility])[address] [place] [address] [place] Creatinine [Mass/Vol] 1.31 mg/dL High 0.72-1.25 [facility] Comment on above: Performed By: #### L AB103, LAB17 ####Event Marketing Intern: NICOLE BOWERS ([phone])[facility] [address] GLOMERULAR FILTRATION RATE ML/MIN/1.73 SQ M.PREDICTED 68.0 mL/min/1.73m*2 Normal >60.0 [facility] Comment on above: Result Comment: Calc ulation based on the Chronic Kidney Disease Epidemiology Collaboration (CKD-EPI) equation refit without adjustment for race Performed By: #### L JACKI, LAB17 ####Event Marketing Intern: NICOLE BOWERS ([id number])[address] Glucose [Mass/Vol] 124 mg/dL High 74-100 [facility] Comment on above: Performed By: #### Pedro ECHEVERRIA, LAB17 ####Event Marketing Intern: NICOLE BOWERS ([phone])[address] Potassium [Moles/Vol] 3.3 mmol/L Low 3.5-5.1 [facility] Comment on above: Result Comment: [facility] potassium values may be up to 0.5 mmol/L lower than serum values. Performed By: #### L AB103, LAB17 ####Event Marketing Intern: NICOLE BOWERS ([id number])[address] Protein [Mass/Vol] 6.0 g/dL Low 6.4-8.3 [facility] Comment on above: Performed By: #### Pedro ECHEVERRIA, LAB17 ####Event Marketing Intern: NICOLE BOWERS ([id number])[place] [address] [place] Sodium [Moles/Vol] 138 mmol/L Normal 136-145 [facility] Comment on above: Performed By: #### L AB103, LAB17 ####Event Marketing Intern: NICOLE BOWERS ([phone])[place] [address] [place] Urea nitrogen [Mass/Vol] 33 mg/dL High 8-21 [facility] Comment on above: Performed By: #### L AB103, LAB17 ####Event Marketing Intern: NICOLE BOWERS ([id number])[facility] ([facility])[address] [place] [address] Comprehensive metabolic 1998 panelon 08-20-2024 Albumin [Mass/Vol] 2.9 g/dL Low 3.5 - 5.0 g/dL [facility] ALP [Catalytic activity/Vol] 198 U/L High 40 - 150 U/L [facility] ALT [Catalytic activity/Vol] 53 U/L High NINF - 40 U/L [facility] Anion gap [Moles/Vol] 9 mmol/L 3 - 13 mmol/L [facility] AST [Catalytic activity/Vol] 33 U/L NINF - 34 U/L [facility] Bilirubin [Mass/Vol] 1.6 mg/dL High NINF - 1.2 mg/dL [facility] Calcium [Mass/Vol] 7.6 mg/dL Low 8.4 - 10. 2 mg/dL [facility] Chloride [Moles/Vol] 101 mmol/L 98 - 10 7 mmol/L [facility] CO2 [Moles/Vol] 28 mmol/L 22 - 29 mmol/L [facility] Creatinine [Mass/Vol] 1.31 mg/dL High 0.72 - 1.25 mg/dL [facility] GFR/1.73 sq M.predicted (S/P/Bld) [Vol rate/Area] 68 mL/min - PINF [facility] Glucose [Mass/Vol] 124 mg/dL High 74 - 100 mg/dL [facility] Interpretation and review of laboratory results Abnormal [facility] Potassium [Moles/Vol] 3.3 mmol/L Low 3.5 - 5.1 mmol/L [facility] Protein [Mass/Vol] 6 g/dL Low 6.4 - 8.3 g/dL [facility] Sodium [Moles/Vol] 138 mmol/L 136 - 145 mmol/L [facility] Urea nitrogen [Mass/Vol] 33 mg/dL High 8 - 21 mg/dL [facility] Laboratory - Chemistry and C hemistry - challengeon 08-20-2024 Magnesium [Mass/Vol] 1.6 mg/dL 1.6 - 2 .6 mg/dL [facility] MAGNESIUMon 08-20-2024 Magnesium [Mass/Vol] 1.6 mg/dL Normal 1.6-2.6 [facility] Comment on above: Result Comment: ORDE R COMMENTS:Higher values can be expected in females during menses. Performed By: #### L AB103, LAB17 ####Event Marketing Intern: NICOLE BOWERS ([id number])[facility] ([facility])[address] [place] [address] [place] Magnesium [Mass/Vol]on 08-20 Interpretation and review of laboratory results Normal [facility] Nursing Noteon 08-20-2024 Nursing Note . IV heplock removed . Discharge instructions reviewed with patient. All questions answered. Pt discharged to home with all belongings. Normal [facility] Nursing Note Pt adamant on leavin g right now. Pt does not want meds to beds Patient would like medications sent to the [facility] in [place] on High . Dr. Aguilar notified via secure chat. Normal [facility] Nursing Note Dr. Briones notified regarding pt refusing meds and lab draw. Normal [facility] Nursing Note Dr. Aguilar notified tele order . Okay to have patient off tele. Normal [facility] Progress Noteon 08-20-2024 Progress Note Normal [facility] Progress Note Normal [facility] 30on 08-19-2024 30 Normal [facility] 30 [facility] [id number] 08-19-2024 [id number] When ok with Cardiology will be discharged. Refused to go to [facility] last night. We do not accept his insurance. Pt is aware. .s [facility] BASIC METABOLIC PANELon 08-01 Anion gap [Moles/Vol] 12 mmol/L Normal 3-13 [facility] Comment on above: Performed By: #### L AB15 ####Event Marketing Intern: NICOLE BOWERS ([phone])[facility] ([facility])[address] [place] [address] [place] Calcium [Mass/Vol] 7.6 mg/dL Low 8.4-10.2 [facility] Comment on above: Performed By: #### L AB15 ####Event Marketing Intern: NICOLE BOEWRS ([phone])[facility] ([facility])[address] [place] [address] Chloride [Moles/Vol] 98 mmol/L Normal 98-107 [facility] Comment on above: Performed By: #### L AB15 ####Event Marketing Intern: NICOLE BOWERS ([phone])[facility])[address] [place] [address] CO2 [Moles/Vol] 30 mmol/L High 22-29 [facility] Comment on above: Performed By: #### L AB15 ####Event Marketing Intern: NICOLE BOWERS ([phone])[facility])[address] [place] [address] Creatinine [Mass/Vol] 1.50 mg/dL High 0.72-1.25 [facility] Comment on above: Performed By: #### L AB15 ####Event Marketing Intern: NICOLE BOWERS ([id number])[facility] ([facility])[address] [place] [address] GLOMERULAR FILTRATION RATE ML/MIN/1.73 SQ M.PREDICTED 57.8 mL/min/1.73m*2 Low >60.0 [facility] Comment on above: Result Comment: Calc ulation based on the Chronic Kidney Disease Epidemiology Collaboration (CKD-EPI) equation refit without adjustment for race Performed By: #### L AB15 ####Event Marketing Intern: NICOLE BOWERS ([phone])[facility])[address] [place] [address] Glucose [Mass/Vol] 136 mg/dL High 74-100 [facility] Comment on above: Performed By: #### L AB15 ####Event Marketing Intern: NICOLE BOWERS ([phone])[facility])[address] [place] [address] Potassium [Moles/Vol] 3.3 mmol/L Low 3.5-5.1 [facility] Comment on above: Result Comment: [facility] potassium values may be up to 0.5 mmol/L lower than serum values. Performed By: #### L AB15 ####Event Marketing Intern: NICOLE BOWERS ([id number])[facility])[address] [place] [address] Sodium [Moles/Vol] 140 mmol/L Normal 136-145 [facility] Comment on above: Performed By: #### L AB15 ####Event Marketing Intern: NICOLE BOWERS ([phone])[facility] ([facility])[address] [place] [address] Urea nitrogen [Mass/Vol] 31 mg/dL High 8-21 [facility] Comment on above: Performed By: #### L AB15 ####Event Marketing Intern: NICOLE BOWERS ([id number])[facility])[address] [place] [address] Basic metabolic 1998 panelon 08-19-2024 Anion gap [Moles/Vol] 12 mmol/L 3 - 13 mmol/L [facility] Calcium [Mass/Vol] 7.6 mg/dL Low 8.4 - 10. 2 mg/dL [facility] Chloride [Moles/Vol] 98 mmol/L 98 - 10 7 mmol/L [facility] CO2 [Moles/Vol] 30 mmol/L High 22 - 29 mmol/L [facility] Creatinine [Mass/Vol] 1.5 mg/dL High 0.72 - 1.25 mg/dL [facility] GFR/1.73 sq M.predicted (S/P/Bld) [Vol rate/Area] 57.8 mL/min Low - PINF [facility] Glucose [Mass/Vol] 136 mg/dL High 74 - 100 mg/dL [facility] Interpretation and review of laboratory results Abnormal [facility] Potassium [Moles/Vol] 3.3 mmol/L Low 3.5 - 5.1 mmol/L [facility] Sodium [Moles/Vol] 140 mmol/L 136 - 145 mmol/L [facility] Urea nitrogen [Mass/Vol] 31 mg/dL High 8 - 21 mg/dL [facility] CBC W Auto Differential pane l (Bld)on 08-19-2024 Basophils (Bld) [#/Vol] 0 10*3/uL 0.0 - 0.2 10*3/uL [facility] Basophils/100 WBC (Bld) 0.5 % 0.0 - 2.0 % [facility] [facility] Eosinophils (Bld) [#/Vol] 0.1 10*3/uL 0.0 - 0.5 10*3/uL [facility] Eosinophils/100 WBC (Bld) 0.8 % 0.0 - 6.0 % [facility] Erythrocyte distribution width (RBC) [Ratio] 12.7 % 11.5 - 15.0 % [facility] Hematocrit (Bld) [Volume fraction] 42.1 % 40.0 - 52.0 % [facility] Hemoglobin (Bld) [Mass/Vol] 14.1 g/dL 13.0 - 18.0 g/dL [facility] Immature granulocytes (Bld) [#/Vol] 0 10*3/uL NINF - 0.1 10*3/uL [facility] Immature granulocytes/100 WBC (Bld) 0.4 % 0.0 - 2.0 % [facility] Interpretation and review of laboratory results Abnormal [facility] Lymphocytes (Bld) [#/Vol] 2 10*3/uL 1.0 - 4.3 10*3/uL [facility] Lymphocytes/100 WBC (Bld) 25.9 % 15.0 - 45.0 % [facility] MCH (RBC) [Entitic mass] 33.2 pg 26.0 - 34.0 pg [facility] MCHC (RBC) [Mass/Vol] 33.5 % 30.5 - 36.0 % [facility] MCV (RBC) [Entitic vol] 99.1 fL High 77.0 - 99.0 fL [facility] Monocytes (Bld) [#/Vol] 0.5 10*3/uL 0.0 - 0.9 10*3/uL [facility] Monocytes/100 WBC (Bld) 7 % 5.0 - 13.0 % [facility] Neutrophils (Bld) [#/Vol] 4.9 10*3/uL 1.8 - 7.5 10*3/uL [facility] Neutrophils/100 WBC (Bld) 65.4 % 38.0 - 82.0 % [facility] Nucleated RBC/100 WBC (Bld) [Ratio] 0 % [facility] Platelet mean volume (Bld) [Entitic vol] 9.2 fL 9.0 - 12.7 fL [facility] Platelets (Bld) [#/Vol] 280 10*3/uL 140 - 440 10*3/uL [facility] RBC (Bld) [#/Vol] 4.25 10*6/uL Low 4.40 - 5.9 0 10*6/uL [facility] WBC (Bld) [#/Vol] 7.5 10*3/uL 3.6 - 10.7 10*3/uL [facility] CBC WITH AUTO DIFFERENTIALon 08-19-2024 Basophils (Bld) [#/Vol] 0.0 10*3/uL Normal 0.0-0.2 [facility] Comment on above: Performed By: #### L [id number] ####Event Marketing Intern: NICOLE BOWERS ([phone])[facility])[address] [place] [address] Basophils/100 WBC (Bld) 0.5 % Normal 0.0-2.0 [facility] Comment on above: Performed By: #### L [id number] ####Event Marketing Intern: NICOLE BOWERS ([phone])[facility])[address] [place] [address] Eosinophils (Bld) [#/Vol] 0.1 10*3/uL Normal 0.0-0.5 [facility] Comment on above: Performed By: #### L [id number] ####Event Marketing Intern: NICOLE BOWERS ([phone])[facility])[address] [place] [address] Eosinophils/100 WBC (Bld) 0.8 % Normal 0.0-6.0 [facility] Comment on above: Performed By: #### L [id number] ####Event Marketing Intern: NICOLE BOWERS ([phone])[facility])[address] [place] [address] Erythrocyte distribution width (RBC) [Ratio] 12.7 % Normal 11.5-15.0 [facility] Comment on above: Performed By: #### L [id number] ####Event Marketing Intern: NICOLE [phone])[facility])[address] [place] [address] Hematocrit (Bld) [Volume fraction] 42.1 % Normal 40.0-52.0 [facility] Comment on above: Performed By: #### L [id number] ####Event Marketing Intern: NICOLE BOWERS ([phone])[facility])[address] [place] [address] Hemoglobin (Bld) [Mass/Vol] 14.1 g/dL Normal 13.0-18.0 [facility] Comment on above: Performed By: #### L [id number] ####Event Marketing Intern: NICOLE BOWERS ([phone])[facility])[address] [place] [address] IMMATURE GRANS % 0.4 % Normal 0.0-2.0 [facility] Comment on above: Performed By: #### L [id number] ####Event Marketing Intern: NICOLE BOWERS ([phone])[facility])[address] [place] [address] IMMATURE GRANS ABSOLUTE 0.0 10*3/uL Normal <0.1 [facility] Comment on above: Performed By: #### L [id number] ####Event Marketing Intern: NICOLE BOWERS ([phone])[facility])[address] [place] [address] Lymphocytes (Bld) [#/Vol] 2.0 10*3/uL Normal 1.0-4.3 [facility] Comment on above: Performed By: #### L [id number] ####Event Marketing Intern: NICOLE BOWERS ([phone])[facility])[address] [place] [address] Lymphocytes/100 WBC (Bld) 25.9 % Normal 15.0-45.0 [facility] Comment on above: Performed By: #### L [id number] ####Event Marketing Intern: NICOLE BOWERS ([phone])[facility])[address] [place] [address] MCH (RBC) [Entitic mass] 33.2 pg Normal 26.0-34.0 [facility] Comment on above: Performed By: #### L [id number] ####Event Marketing Intern: NICOLE BOWERS ([phone])[facility])[address] [place] [address] MCHC 33.5 % Normal 30.5-36.0 [facility] Comment on above: Performed By: #### L [id number] ####Event Marketing Intern: NICOLE BOWERS ([phone])[facility])[address] [place] [address] MCV (RBC) [Entitic vol] 99.1 fL High 77.0-99.0 [facility] Comment on above: Performed By: #### L [id number] ####Event Marketing Intern: NICOLE BOWERS ([phone])[facility])[address] [place] [address] Monocytes (Bld) [#/Vol] 0.5 10*3/uL Normal 0.0-0.9 [facility] Comment on above: Performed By: #### L [id number] ####Event Marketing Intern: NICOLE BOWERS ([phone])[facility])[address] [place] [address] Monocytes/100 WBC (Bld) 7.0 % Normal 5.0-13.0 [facility] Comment on above: Performed By: #### L [id number] ####Event Marketing Intern: NICOLE BOWERS ([phone])[facility])[address] [place] [address] NEUTROPHILS ABSOLUTE 4.9 10*3/uL Normal 1.8-7.5 [facility] Comment on above: Performed By: #### L [id number] ####Event Marketing Intern: NICOLE BOWERS ([phone])[facility])[address] [place] [address] Neutrophils/100 WBC (Bld) 65.4 % Normal 38.0-82.0 [facility] Comment on above: Performed By: #### L [id number] ####Event Marketing Intern: NICOLE BOWERS ([id number])[facility] ([facility])[address] [place] [address] NRBC 0.0 /100 WBCs Normal 0.0-2.0 [facility] Comment on above: Performed By: #### L [id number] ####Event Marketing Intern: NICOLE BOWERS ([phone])[facility] ([facility])[address] [place] [address] Platelet mean volume (Bld) [Entitic vol] 9.2 fL Normal 9.0-12.7 [facility] Comment on above: Performed By: #### L [id number] ####Event Marketing Intern: NICOLE BOWERS ([phone])[facility] ([facility])[address] [place] [address] Platelets (Bld) [#/Vol] 280 10*3/uL Normal 140-440 [facility] Comment on above: Performed By: #### L [id number] ####Event Marketing Intern: NICOLE BOWERS ([phone])[facility] ([facility])[address] [place] [address] RBC (Bld) [#/Vol] 4.25 10*6/uL Low 4.40-5.90 [facility] Comment on above: Performed By: #### L [id number] ####Event Marketing Intern: NICOLE BOWERS ([phone])[facility] ([facility])[address] [place] [address] WBC (Bld) [#/Vol] 7.5 10*3/uL Normal 3.6-10.7 [facility] Comment on above: Performed By: #### L [id number] ####Event Marketing Intern: NICOLE BOWERS ([phone])[facility])[address] [place] [address] COMPREHENSIVE METABOLIC PANE Ming 08-19-2024 Albumin [Mass/Vol] 3.0 g/dL Low 3.5-5.0 [facility] Comment on above: Performed By: #### L [id number], [id number] ####Event Marketing Intern: NICOLE BOWERS ([phone])[facility] ([facility])[address] [place] [address] [place] ALP [Catalytic activity/Vol] 191 U/L High 40-150 [facility] Comment on above: Performed By: #### L [id number], [id number] ####Event Marketing Intern: NICOLE BOWERS ([phone])[facility] ([facility])[address] [place] [address] [place] ALT [Catalytic activity/Vol] 54 U/L High <40 [facility] Comment on above: Performed By: #### L [id number], [id number] ####Event Marketing Intern: NICOLE BOWERS ([id number])[facility] ([facility])[address] [place] [address] Anion gap [Moles/Vol] 12 mmol/L Normal 3-13 [facility] Comment on above: Performed By: #### L [id number], [id number] ####Event Marketing Intern: NICOLE BOWERS ([phone])[facility] ([facility])[address] [place] [address] [place] AST [Catalytic activity/Vol] 33 U/L Normal <34 [facility] Comment on above: Performed By: #### L [id number], [id number] ####Event Marketing Intern: NICOLE BOWERS ([phone])[facility] ([facility])[address] [place] [address] [place] Bilirubin [Mass/Vol] 1.6 mg/dL High <1.2 [facility] Comment on above: Performed By: #### L AB17, [id number] ####Event Marketing Intern: NICOLE BOWERS ([phone])[facility] ([facility])[address] [place] [address] [place] Calcium [Mass/Vol] 7.9 mg/dL Low 8.4-10.2 [facility] Comment on above: Performed By: #### L [id number], [id number] ####Event Marketing Intern: NICOEL BOWERS ([phone])[facility] ([facility])[address] [place] [address] [place] Chloride [Moles/Vol] 96 mmol/L Low 98-107 [facility] Comment on above: Performed By: #### L [id number], [id number] ####Event Marketing Intern: NICOLE BOWERS ([phone])[facility])[address] [place] [address] CO2 [Moles/Vol] 28 mmol/L Normal 22-29 [facility] Comment on above: Performed By: #### L AB17, [id number] ####Event Marketing Intern: NICOLE BOWERS ([phone])[facility])[address] [place] [address] Creatinine [Mass/Vol] 1.64 mg/dL High 0.72-1.25 [facility] Comment on above: Performed By: #### L AB17, [id number] ####Event Marketing Intern: NICOLE BOWERS ([phone])[facility])[address] [place] [address] GLOMERULAR FILTRATION RATE ML/MIN/1.73 SQ M.PREDICTED 51.9 mL/min/1.73m*2 Low >60.0 [facility] Comment on above: Result Comment: Calc ulation based on the Chronic Kidney Disease Epidemiology Collaboration (CKD-EPI) equation refit without adjustment for race Performed By: #### L AB17, [id number] ####Event Marketing Intern: NICOLE BOWERS ([phone])[facility])[address] [place] [address] Glucose [Mass/Vol] 150 mg/dL High 74-100 [facility] Comment on above: Performed By: #### L AB17, [id number] ####Event Marketing Intern: NICOLE BOWERS ([id number])[facility])[address] [place] [address] Potassium [Moles/Vol] 2.9 mmol/L Low 3.5-5.1 [facility] Comment on above: Result Comment: [facility] potassium values may be up to 0.5 mmol/L lower than serum values. Performed By: #### L AB17, [id number] ####Event Marketing Intern: NICOLE BOWERS ([phone])[facility] [place] [address] Protein [Mass/Vol] 6.2 g/dL Low 6.4-8.3 [facility] Comment on above: Performed By: #### L AB17, [id number] ####Event Marketing Intern: NICOLE BOWERS ([phone])[facility] ([facility])[address] [place] [address] Sodium [Moles/Vol] 136 mmol/L Normal 136-145 [facility] Comment on above: Performed By: #### L AB17, [id number] ####Event Marketing Intern: NICOLE BOWERS ([phone])[facility] ([facility])[address] [place] [address] Urea nitrogen [Mass/Vol] 33 mg/dL High 8-21 [facility] Comment on above: Performed By: #### L AB17, [id number] ####Event Marketing Intern: NICOLE BOWERS ([phone])[facility] ([facility])[address] [place] [address] Comprehensive metabolic 1998 panelOrdered By: Dariel Staley on 08-19-2024 Albumin [Mass/Vol] 3 g/dL Low 3.5 - 5.0 g/dL [facility] ALP [Catalytic activity/Vol] 191 U/L High 40 - 150 U/L [facility] ALT [Catalytic activity/Vol] 54 U/L High NINF - 40 U/L [facility] Anion gap [Moles/Vol] 12 mmol/L 3 - 13 mmol/L [facility] AST [Catalytic activity/Vol] 33 U/L NINF - 34 U/L [facility] Bilirubin [Mass/Vol] 1.6 mg/dL High NINF - 1.2 mg/dL [facility] Calcium [Mass/Vol] 7.9 mg/dL Low 8.4 - 10. 2 mg/dL [facility] Chloride [Moles/Vol] 96 mmol/L Low 98 - 10 7 mmol/L [facility] CO2 [Moles/Vol] 28 mmol/L 22 - 29 mmol/L [facility] Creatinine [Mass/Vol] 1.64 mg/dL High 0.72 - 1.25 mg/dL [facility] GFR/1.73 sq M.predicted (S/P/Bld) [Vol rate/Area] 51.9 mL/min Low - PINF [facility] Glucose [Mass/Vol] 150 mg/dL High 74 - 100 mg/dL [facility] Interpretation and review of laboratory results Abnormal [facility] Potassium [Moles/Vol] 2.9 mmol/L Low 3.5 - 5.1 mmol/L [facility] Protein [Mass/Vol] 6.2 g/dL Low 6.4 - 8.3 g/dL [facility] Sodium [Moles/Vol] 136 mmol/L 136 - 145 mmol/L [facility] Urea nitrogen [Mass/Vol] 33 mg/dL High 8 - 21 mg/dL [facility] Laboratory - Chemistry and C hemistry - challengeon 08-19-2024 Magnesium [Mass/Vol] 1.4 mg/dL Low 1.6 - 2 .6 mg/dL [facility] MAGNESIUMon 08-19-2024 Magnesium [Mass/Vol] 1.4 mg/dL Low 1.6-2.6 [facility] Comment on above: Result Comment: ALEJANDRO Aleman COMMENTS:Higher values can be expected in females during menses. Performed By: #### L AB17, [id number] ####Event Marketing Intern: NICOLE BOWERS ([phone])[address] Magnesium [Mass/Vol]on 08-19 Interpretation and review of laboratory results Abnormal [facility] Progress Noteon 08-19-2024 Progress Note Normal [facility] Progress Note Normal [facility] Progress Note Normal [facility] Progress Note Normal [facility] 30on 08-18-2024 30 Normal [facility] [id number] 08-18-2024 [id number] Normal [facility] [phone] Per RN [facility] calls daily, no bed available. Nephrology and Cardiology following. Needs electrolytes replaced. Not willing to take all of it. Plan is home when stable, no needs. . Normal [facility] CALCIUM, IONIZEDon CALCIUM IONIZED 3.30 mg/dL Low 4.30-5.20 [facility] Comment on above: Performed By: #### L [id number] ####Event Marketing Intern: NICOLE BOWERS ([phone])[facility] ([facility])[address] [place] [address] PH, IONIZED CALCIUM 7.60 High 7.31-7.46 [facility] Comment on above: Performed By: #### L [id number] ####Event Marketing Intern: NICOLE BOWERS ([phone])[facility] ([facility])[address] [place] [address] CBC W Auto Differential pane l (Bld)on 08-18-2024 Basophils (Bld) [#/Vol] 0 10*3/uL 0.0 - 0.2 10*3/uL [facility] Basophils/100 WBC (Bld) 0.5 % 0.0 - 2.0 % [facility] Eosinophils (Bld) [#/Vol] 0.1 10*3/uL 0.0 - 0.5 10*3/uL [facility] Eosinophils/100 WBC (Bld) 0.9 % 0.0 - 6.0 % [facility] Erythrocyte distribution width (RBC) [Ratio] 12.8 % 11.5 - 15.0 % [facility] Hematocrit (Bld) [Volume fraction] 44.5 % 40.0 - 52.0 % [facility] Hemoglobin (Bld) [Mass/Vol] 14.7 g/dL 13.0 - 18.0 g/dL [facility] Immature granulocytes (Bld) [#/Vol] 0 10*3/uL NINF - 0.1 10*3/uL [facility] Immature granulocytes/100 WBC (Bld) 0.2 % 0.0 - 2.0 % [facility] Interpretation and review of laboratory results Abnormal [facility] Lymphocytes (Bld) [#/Vol] 2.8 10*3/uL 1.0 - 4.3 10*3/uL [facility] Lymphocytes/100 WBC (Bld) 32.6 % 15.0 - 45.0 % [facility] MCH (RBC) [Entitic mass] 33.6 pg 26.0 - 34.0 pg [facility] MCHC (RBC) [Mass/Vol] 33 % 30.5 - 36.0 % [facility] MCV (RBC) [Entitic vol] 101.8 fL High 77.0 - 99.0 fL [facility] Monocytes (Bld) [#/Vol] 0.7 10*3/uL 0.0 - 0.9 10*3/uL [facility] Monocytes/100 WBC (Bld) 7.8 % 5.0 - 13.0 % [facility] Neutrophils (Bld) [#/Vol] 4.9 10*3/uL 1.8 - 7.5 10*3/uL [facility] Neutrophils/100 WBC (Bld) 58 % 38.0 - 82.0 % [facility] Nucleated RBC/100 WBC (Bld) [Ratio] 0 % [facility] Platelet mean volume (Bld) [Entitic vol] 9.6 fL 9.0 - 12.7 fL [facility] Platelets (Bld) [#/Vol] 288 10*3/uL 140 - 440 10*3/uL [facility] RBC (Bld) [#/Vol] 4.37 10*6/uL Low 4.40 - 5.9 0 10*6/uL [facility] WBC (Bld) [#/Vol] 8.4 10*3/uL 3.6 - 10.7 10*3/uL [facility] CBC WITH AUTO DIFFERENTIALon 08-18-2024 Basophils (Bld) [#/Vol] 0.0 10*3/uL Normal 0.0-0.2 [facility] Comment on above: Performed By: #### L [id number] ####Event Marketing Intern: NICOLE BOWERS ([phone])[facility])[address] [place] [address] Basophils/100 WBC (Bld) 0.5 % Normal 0.0-2.0 [facility] Comment on above: Performed By: #### L [id number] ####Event Marketing Intern: NICOLE BOWERS ([phone])[facility])[address] [place] [address] Eosinophils (Bld) [#/Vol] 0.1 10*3/uL Normal 0.0-0.5 [facility] Comment on above: Performed By: #### L [id number] ####Event Marketing Intern: NICOLE BOWERS ([id number])[address] Eosinophils/100 WBC (Bld) 0.9 % Normal 0.0-6.0 [facility] Comment on above: Performed By: #### L [id number] ####Event Marketing Intern: NICOLE BOWERS ([phone])[facility])[address] [place] [address] Erythrocyte distribution width (RBC) [Ratio] 12.8 % Normal 11.5-15.0 [facility] Comment on above: Performed By: #### L [id number] ####Event Marketing Intern: NICOLE BOWERS ([id number])[address] Hematocrit (Bld) [Volume fraction] 44.5 % Normal 40.0-52.0 [facility] Comment on above: Performed By: #### L [id number] ####Event Marketing Intern: NICOLE BOWERS ([phone])[address] Hemoglobin (Bld) [Mass/Vol] 14.7 g/dL Normal 13.0-18.0 [facility] Comment on above: Performed By: #### L [id number] ####Event Marketing Intern: NICOLE BOWERS ([phone])[facility])[address] [place] [address] IMMATURE GRANS % 0.2 % Normal 0.0-2.0 [facility] Comment on above: Performed By: #### L [id number] ####Event Marketing Intern: NICOLE BOWERS ([phone])[address] IMMATURE GRANS ABSOLUTE 0.0 10*3/uL Normal <0.1 [facility] Comment on above: Performed By: #### L [id number] ####Event Marketing Intern: NICOLE BOWERS ([id number])[facility])[address] [place] [address] Lymphocytes (Bld) [#/Vol] 2.8 10*3/uL Normal 1.0-4.3 [facility] Comment on above: Performed By: #### L [id number] ####Event Marketing Intern: NICOLE BOWERS ([phone])[facility])[address] [place] [address] Lymphocytes/100 WBC (Bld) 32.6 % Normal 15.0-45.0 [facility] Comment on above: Performed By: #### L [id number] ####Event Marketing Intern: NICOLE BOWERS ([phone])[facility])[address] [place] [address] MCH (RBC) [Entitic mass] 33.6 pg Normal 26.0-34.0 [facility] Comment on above: Performed By: #### L [id number] ####Event Marketing Intern: NICOLE BOWERS ([phone])[facility])[address] [place] [address] MCHC 33.0 % Normal 30.5-36.0 [facility] Comment on above: Performed By: #### L [id number] ####Event Marketing Intern: NICOLE BOWERS ([phone])[facility])[address] [place] [address] MCV (RBC) [Entitic vol] 101.8 fL High 77.0-99.0 [facility] Comment on above: Performed By: #### L [id number] ####Event Marketing Intern: NICOLE BOWERS ([phone])[facility])[address] [place] [address] Monocytes (Bld) [#/Vol] 0.7 10*3/uL Normal 0.0-0.9 [facility] Comment on above: Performed By: #### L [id number] ####Event Marketing Intern: NICOLE BOWERS ([phone])[facility])[address] [place] [address] Monocytes/100 WBC (Bld) 7.8 % Normal 5.0-13.0 [facility] Comment on above: Performed By: #### L [id number] ####Event Marketing Intern: NICOLE BOWERS ([phone])[facility] ([facility])[address] [place] [address] NEUTROPHILS ABSOLUTE 4.9 10*3/uL Normal 1.8-7.5 [facility] Comment on above: Performed By: #### L [id number] ####Event Marketing Intern: NICOLE BOWERS ([phone])[facility] ([facility])[address] [place] [address] Neutrophils/100 WBC (Bld) 58.0 % Normal 38.0-82.0 [facility] Comment on above: Performed By: #### L [id number] ####Event Marketing Intern: NICOLE BOWERS ([phone])[facility] ([facility])[address] [place] [address] NRBC 0.0 /100 WBCs Normal 0.0-2.0 [facility] Comment on above: Performed By: #### L [id number] ####Event Marketing Intern: NICOLE BOWERS ([phone])[facility] ([facility])[address] [place] [address] Platelet mean volume (Bld) [Entitic vol] 9.6 fL Normal 9.0-12.7 [facility] Comment on above: Performed By: #### L [id number] ####Event Marketing Intern: NICOLE BOWERS ([phone])[facility] ([facility])[address] [place] [address] Platelets (Bld) [#/Vol] 288 10*3/uL Normal 140-440 [facility] Comment on above: Performed By: #### L [id number] ####Event Marketing Intern: NICOLE BOWERS ([phone])[facility] ([facility])[address] [place] [address] RBC (Bld) [#/Vol] 4.37 10*6/uL Low 4.40-5.90 [facility] Comment on above: Performed By: #### L [id number] ####Event Marketing Intern: NICOLE BOWERS ([phone])[facility])[address] [place] [address] WBC (Bld) [#/Vol] 8.4 10*3/uL Normal 3.6-10.7 [facility] Comment on above: Performed By: #### L [id number] ####Event Marketing Intern: NICOLE BOWERS ([phone])[facility])[address] [place] [address] COMPREHENSIVE METABOLIC PANE Ming 08-18-2024 Albumin [Mass/Vol] 3.0 g/dL Low 3.5-5.0 [facility] Comment on above: Performed By: #### L AB17, [id number] ####Event Marketing Intern: NICOLE BOWERS ([phone])[facility])[address] [place] [address] ALP [Catalytic activity/Vol] 195 U/L High 40-150 [facility] Comment on above: Performed By: #### L AB17, [id number] ####Event Marketing Intern: NICOLE BOWERS ([phone])[facility])[address] [place] [address] ALT [Catalytic activity/Vol] 56 U/L High <40 [facility] Comment on above: Performed By: #### L AB17, [id number] ####Event Marketing Intern: NICOLE BOWERS ([phone])[facility])[address] [place] [address] Anion gap [Moles/Vol] 13 mmol/L Normal 3-13 [facility] Comment on above: Performed By: #### L AB17, [id number] ####Event Marketing Intern: NICOLE BOWERS ([phone])[facility])[address] [place] [address] AST [Catalytic activity/Vol] 36 U/L High <34 [facility] Comment on above: Result Comment: TCPo tential interference from hemolysis Performed By: #### L AB17, [id number] ####Event Marketing Intern: NICOLE BOWERS ([id number])[facility] [place] [address] [place] Bilirubin [Mass/Vol] 1.6 mg/dL High <1.2 [facility] Comment on above: Performed By: #### L AB17, [id number] ####Event Marketing Intern: NICOLE BOWERS ([phone])[facility] ([facility])[address] [place] [address] Calcium [Mass/Vol] 7.8 mg/dL Low 8.4-10.2 [facility] Comment on above: Performed By: #### L AB17, [id number] ####Event Marketing Intern: NICOLE BOWERS ([phone])[facility] ([facility])[address] [place] [address] Chloride [Moles/Vol] 99 mmol/L Normal 98-107 [facility] Comment on above: Performed By: #### L AB17, [id number] ####Event Marketing Intern: NICOLE BOWERS ([phone])[facility] [place] [address] [place] CO2 [Moles/Vol] 25 mmol/L Normal 22-29 [facility] Comment on above: Performed By: #### L AB17, [id number] ####Event Marketing Intern: NICOLE BOWERS ([phone])[facility] ([facility])[address] [place] [address] Creatinine [Mass/Vol] 1.64 mg/dL High 0.72-1.25 [facility] Comment on above: Performed By: #### L AB17, [id number] ####Event Marketing Intern: NICOLE BOWERS ([phone])[facility])[address] [place] [address] [place] GLOMERULAR FILTRATION RATE ML/MIN/1.73 SQ M.PREDICTED 51.9 mL/min/1.73m*2 Low >60.0 [facility] Comment on above: Result Comment: Calc ulation based on the Chronic Kidney Disease Epidemiology Collaboration (CKD-EPI) equation refit without adjustment for race Performed By: #### L AB17, [id number] ####Event Marketing Intern: NICOLE BOWERS ([phone])[facility])[address] [place] [address] Glucose [Mass/Vol] 104 mg/dL High 74-100 [facility] Comment on above: Performed By: #### L AB17, [id number] ####Event Marketing Intern: NICOLE BOWERS ([phone])[facility])[address] [place] [address] Potassium [Moles/Vol] 4.0 mmol/L Normal 3.5-5.1 [facility] Comment on above: Result Comment: [facility] potassium values may be up to 0.5 mmol/L lower than serum values. Performed By: #### L AB17, [id number] ####Event Marketing Intern: NICOLE BOWERS ([phone])[facility])[address] [place] [address] Protein [Mass/Vol] 6.4 g/dL Normal 6.4-8.3 [facility] Comment on above: Performed By: #### L AB17, [id number] ####Event Marketing Intern: NICOLE BOWERS ([phone])[facility])[address] [place] [address] Sodium [Moles/Vol] 137 mmol/L Normal 136-145 [facility] Comment on above: Performed By: #### L AB17, [id number] ####Event Marketing Intern: NICOLE BOWERS ([phone])[facility])[address] [place] [address] Urea nitrogen [Mass/Vol] 33 mg/dL High 8-21 [facility] Comment on above: Performed By: #### L AB17, [id number] ####Event Marketing Intern: NICOLE BOWERS ([phone])[address] Calcium.ionized [Moles/Vol]o n 08-18-2024 Calcium.ionized (Bld) [Moles/Vol] 3.3 mg/dL Low 4.30 - 5.20 mg/dL [facility] Interpretation and review of laboratory results Abnormal [facility] PH, IONIZED CALCIUM 7.6 High 7.31 - 7.46 [facility] Comprehensive metabolic 1998 panelon 08-18-2024 Albumin [Mass/Vol] 3 g/dL Low 3.5 - 5.0 g/dL [facility] ALP [Catalytic activity/Vol] 195 U/L High 40 - 150 U/L [facility] ALT [Catalytic activity/Vol] 56 U/L High NINF - 40 U/L [facility] Anion gap [Moles/Vol] 13 mmol/L 3 - 13 mmol/L [facility] AST [Catalytic activity/Vol] 36 U/L High NINF - 34 U/L [facility] Bilirubin [Mass/Vol] 1.6 mg/dL High NINF - 1.2 mg/dL [facility] Calcium [Mass/Vol] 7.8 mg/dL Low 8.4 - 10. 2 mg/dL [facility] Chloride [Moles/Vol] 99 mmol/L 98 - 10 7 mmol/L [facility] CO2 [Moles/Vol] 25 mmol/L 22 - 29 mmol/L [facility] Creatinine [Mass/Vol] 1.64 mg/dL High 0.72 - 1.25 mg/dL [facility] GFR/1.73 sq M.predicted (S/P/Bld) [Vol rate/Area] 51.9 mL/min Low - PINF [facility] Glucose [Mass/Vol] 104 mg/dL High 74 - 100 mg/dL [facility] Interpretation and review of laboratory results Abnormal [facility] Potassium [Moles/Vol] 4 mmol/L 3.5 - 5.1 mmol/L [facility] Protein [Mass/Vol] 6.4 g/dL 6.4 - 8.3 g/dL [facility] Sodium [Moles/Vol] 137 mmol/L 136 - 145 mmol/L [facility] Urea nitrogen [Mass/Vol] 33 mg/dL High 8 - 21 mg/dL [facility] Laboratory - Chemistry and C hemistry - challengeon 08-18-2024 Magnesium [Mass/Vol] 1.7 mg/dL 1.6 - 2 .6 mg/dL [facility] MAGNESIUMon 08-18-2024 Magnesium [Mass/Vol] 1.7 mg/dL Normal 1.6-2.6 [facility] Comment on above: Result Comment: ALEJANDRO R COMMENTS:Higher values can be expected in females during menses. Performed By: #### L AB17, [id number] ####Event Marketing Intern: NICOLE BOWERS ([phone])[facility])[address] [place] [address] Magnesium [Mass/Vol]on 08-18 Interpretation and review of laboratory results Normal [facility] No Panel Informationon 08-18 [facility] Nursing Noteon 08-18-2024 Nursing Note Normal [facility] Nursing Note Updated metro with patient vitals metro still does not have a bed metro will call when one is available Normal [facility] Nursing Note Patient refusing iv magnesium patient requesting shower ok per dr coppola for patient to take oral magnesium only and ok to shower Normal [facility] Progress Noteon 08-18-2024 Progress Note Normal [facility] Progress Note Normal [facility] Progress Note Normal [facility] 30on 08-17-2024 30 Normal [facility] 30 Normal [facility] 30 Normal [facility] [id number] 08-17-2024 [id number] Normal [facility] [id number] Normal [facility] CBC W Auto Differential pane l (Bld)on 08-17-2024 Basophils (Bld) [#/Vol] 0 10*3/uL 0.0 - 0.2 10*3/uL [facility] Basophils/100 WBC (Bld) 0.5 % 0.0 - 2.0 % [facility] Eosinophils (Bld) [#/Vol] 0.1 10*3/uL 0.0 - 0.5 10*3/uL [facility] Eosinophils/100 WBC (Bld) 1.2 % 0.0 - 6.0 % [facility] Erythrocyte distribution width (RBC) [Ratio] 13.2 % 11.5 - 15.0 % [facility] Hematocrit (Bld) [Volume fraction] 43.3 % 40.0 - 52.0 % [facility] Hemoglobin (Bld) [Mass/Vol] 14.3 g/dL 13.0 - 18.0 g/dL [facility] Immature granulocytes (Bld) [#/Vol] 0 10*3/uL NINF - 0.1 10*3/uL [facility] Immature granulocytes/100 WBC (Bld) 0.4 % 0.0 - 2.0 % [facility] Interpretation and review of laboratory results Abnormal [facility] Lymphocytes (Bld) [#/Vol] 2.4 10*3/uL 1.0 - 4.3 10*3/uL [facility] Lymphocytes/100 WBC (Bld) 32.3 % 15.0 - 45.0 % [facility] MCH (RBC) [Entitic mass] 33 pg 26.0 - 34.0 pg [facility] MCHC (RBC) [Mass/Vol] 33 % 30.5 - 36.0 % [facility] MCV (RBC) [Entitic vol] 100 fL High 77.0 - 99.0 fL [facility] Monocytes (Bld) [#/Vol] 0.7 10*3/uL 0.0 - 0.9 10*3/uL [facility] Monocytes/100 WBC (Bld) 8.8 % 5.0 - 13.0 % [facility] Neutrophils (Bld) [#/Vol] 4.2 10*3/uL 1.8 - 7.5 10*3/uL [facility] Neutrophils/100 WBC (Bld) 56.8 % 38.0 - 82.0 % [facility] Nucleated RBC/100 WBC (Bld) [Ratio] 0 % [facility] Platelet mean volume (Bld) [Entitic vol] 10.1 fL 9.0 - 12.7 fL [facility] Platelets (Bld) [#/Vol] 274 10*3/uL 140 - 440 10*3/uL [facility] RBC (Bld) [#/Vol] 4.33 10*6/uL Low 4.40 - 5.9 0 10*6/uL [facility] WBC (Bld) [#/Vol] 7.4 10*3/uL 3.6 - 10.7 10*3/uL [facility] CBC WITH AUTO DIFFERENTIALon 08-17-2024 Basophils (Bld) [#/Vol] 0.0 10*3/uL Normal 0.0-0.2 [facility] Comment on above: Performed By: #### L [id number] ####Event Marketing Intern: NICOLE BOWERS ([phone])[facility])[address] [place] [address] Basophils/100 WBC (Bld) 0.5 % Normal 0.0-2.0 [facility] Comment on above: Performed By: #### L [id number] ####Event Marketing Intern: NICOLE BWOERS ([id number])[facility])[address] [place] [address] Eosinophils (Bld) [#/Vol] 0.1 10*3/uL Normal 0.0-0.5 [facility] Comment on above: Performed By: #### L [id number] ####Event Marketing Intern: NICOLE BOWERS ([phone])[facility])[address] [place] [address] Eosinophils/100 WBC (Bld) 1.2 % Normal 0.0-6.0 [facility] Comment on above: Performed By: #### L [id number] ####Event Marketing Intern: NICOLE BOWERS ([phone])[facility])[address] [place] [address] Erythrocyte distribution width (RBC) [Ratio] 13.2 % Normal 11.5-15.0 [facility] Comment on above: Performed By: #### L [id number] ####Event Marketing Intern: NICOLE BOWERS ([id number])[address] Hematocrit (Bld) [Volume fraction] 43.3 % Normal 40.0-52.0 [facility] Comment on above: Performed By: #### L [id number] ####Event Marketing Intern: NICOLE BOWERS ([phone])[address] Hemoglobin (Bld) [Mass/Vol] 14.3 g/dL Normal 13.0-18.0 [facility] Comment on above: Performed By: #### L [id number] ####Event Marketing Intern: NICOLE BOWERS ([phone])[facility] ([facility])[address] [place] [address] IMMATURE GRANS % 0.4 % Normal 0.0-2.0 [facility] Comment on above: Performed By: #### L [id number] ####Event Marketing Intern: NICOLE BOWERS ([phone])[facility])[address] [place] [address] IMMATURE GRANS ABSOLUTE 0.0 10*3/uL Normal <0.1 [facility] Comment on above: Performed By: #### L [id number] ####Event Marketing Intern: NICOLE BOWERS ([phone])[facility])[address] [place] [address] Lymphocytes (Bld) [#/Vol] 2.4 10*3/uL Normal 1.0-4.3 [facility] Comment on above: Performed By: #### L [id number] ####Event Marketing Intern: NICOLE BOWERS ([phone])[facility])[address] [place] [address] Lymphocytes/100 WBC (Bld) 32.3 % Normal 15.0-45.0 [facility] Comment on above: Performed By: #### L [id number] ####Event Marketing Intern: NICOLE BOWERS ([id number])[facility])[address] [place] [address] MCH (RBC) [Entitic mass] 33.0 pg Normal 26.0-34.0 [facility] Comment on above: Performed By: #### L [id number] ####Event Marketing Intern: NICOLE BOWERS ([phone])[facility])[address] [place] [address] MCHC 33.0 % Normal 30.5-36.0 [facility] Comment on above: Performed By: #### L [id number] ####Event Marketing Intern: NICOLE BOWERS ([phone])[facility])[address] [place] [address] MCV (RBC) [Entitic vol] 100.0 fL High 77.0-99.0 [facility] Comment on above: Performed By: #### L [id number] ####Event Marketing Intern: NICOLE BOWERS ([phone])[facility])[address] [place] [address] Monocytes (Bld) [#/Vol] 0.7 10*3/uL Normal 0.0-0.9 [facility] Comment on above: Performed By: #### L [id number] ####Event Marketing Intern: NICOLE BOWERS ([phone])[facility] ([facility])[address] [place] [address] Monocytes/100 WBC (Bld) 8.8 % Normal 5.0-13.0 [facility] Comment on above: Performed By: #### L [id number] ####Event Marketing Intern: NICOLE BOWERS ([phone])[facility])[address] [place] [address] NEUTROPHILS ABSOLUTE 4.2 10*3/uL Normal 1.8-7.5 [facility] Comment on above: Performed By: #### L [id number] ####Event Marketing Intern: NICOLE BOWERS ([phone])[facility])[address] [place] [address] Neutrophils/100 WBC (Bld) 56.8 % Normal 38.0-82.0 [facility] Comment on above: Performed By: #### L [id number] ####Event Marketing Intern: NICOLE BOWERS ([id number])[facility])[address] [place] [address] NRBC 0.0 /100 WBCs Normal 0.0-2.0 [facility] Comment on above: Performed By: #### L [id number] ####Event Marketing Intern: NICOLE BOWERS ([phone])[facility])[address] [place] [address] Platelet mean volume (Bld) [Entitic vol] 10.1 fL Normal 9.0-12.7 [facility] Comment on above: Performed By: #### L [id number] ####Event Marketing Intern: NICOLE BOWERS ([phone])[facility] ([facility])[address] [place] [address] Platelets (Bld) [#/Vol] 274 10*3/uL Normal 140-440 [facility] Comment on above: Performed By: #### L [id number] ####Event Marketing Intern: NICOLE BOWERS ([id number])[facility] ([facility])[address] [place] [address] RBC (Bld) [#/Vol] 4.33 10*6/uL Low 4.40-5.90 [facility] Comment on above: Performed By: #### L [id number] ####Event Marketing Intern: NICOLE BOWERS ([phone])[facility] ([facility])[address] [place] [address] WBC (Bld) [#/Vol] 7.4 10*3/uL Normal 3.6-10.7 [facility] Comment on above: Performed By: #### L [id number] ####Event Marketing Intern: NICOLE BOWERS ([phone])[facility] ([facility])[address] [place] [address] COMPREHENSIVE METABOLIC PANE Ming 08-17-2024 Albumin [Mass/Vol] 2.9 g/dL Low 3.5-5.0 [facility] Comment on above: Performed By: #### L AB17, [id number] ####Event Marketing Intern: NICOLE BOWERS ([phone])[facility] ([facility])[address] [place] [address] ALP [Catalytic activity/Vol] 188 U/L High 40-150 [facility] Comment on above: Performed By: #### L AB17, [id number] ####Event Marketing Intern: NICOLE BOWERS ([phone])[facility])[address] [place] [address] ALT [Catalytic activity/Vol] 56 U/L High <40 [facility] Comment on above: Performed By: #### L AB17, [id number] ####Event Marketing Intern: NICOLE BOWERS ([phone])[facility] ([facility])[address] [place] [address] [place] Anion gap [Moles/Vol] 12 mmol/L Normal 3-13 [facility] Comment on above: Performed By: #### L AB17, [id number] ####Event Marketing Intern: NICOLE BOWERS ([id number])[facility])[address] AST [Catalytic activity/Vol] 30 U/L Normal <34 [facility] Comment on above: Performed By: #### L AB17, [id number] ####Event Marketing Intern: NICOLE BOWERS ([id number])[facility])[address] [place] [address] Bilirubin [Mass/Vol] 1.6 mg/dL High <1.2 [facility] Comment on above: Performed By: #### L AB17, [id number] ####Event Marketing Intern: NICOLE BOWERS ([id number])[facility])[address] [place] [address] Calcium [Mass/Vol] 7.7 mg/dL Low 8.4-10.2 [facility] Comment on above: Performed By: #### L AB17, [id number] ####Event Marketing Intern: NICOLE BOWERS ([id number])[facility] [place] [address] [place] Chloride [Moles/Vol] 97 mmol/L Low 98-107 [facility] Comment on above: Performed By: #### L AB17, [id number] ####Event Marketing Intern: NICOLE BOWERS ([phone])[facility] [place] [address] [place] CO2 [Moles/Vol] 30 mmol/L High 22-29 [facility] Comment on above: Performed By: #### L AB17, [id number] ####Event Marketing Intern: NICOLE BOWERS ([phone])[facility] ([facility])[address] [place] [address] [place] Creatinine [Mass/Vol] 1.53 mg/dL High 0.72-1.25 [facility] Comment on above: Performed By: #### L AB17, [id number] ####Event Marketing Intern: NICOLE BOWERS ([id number])[facility])[address] [place] [address] GLOMERULAR FILTRATION RATE ML/MIN/1.73 SQ M.PREDICTED 56.4 mL/min/1.73m*2 Low >60.0 [facility] Comment on above: Result Comment: Calc ulation based on the Chronic Kidney Disease Epidemiology Collaboration (CKD-EPI) equation refit without adjustment for race Performed By: #### L AB17, [id number] ####Event Marketing Intern: NICOLE BOWERS ([phone])[address] Glucose [Mass/Vol] 102 mg/dL High 74-100 [facility] Comment on above: Performed By: #### L AB17, [id number] ####Event Marketing Intern: NICOLE BOWERS ([id number])[address] Potassium [Moles/Vol] 3.3 mmol/L Low 3.5-5.1 [facility] Comment on above: Result Comment: [facility] potassium values may be up to 0.5 mmol/L lower than serum values. Performed By: #### L AB17, [id number] ####Event Marketing Intern: NICOLE BOWERS ([id number])[address] Protein [Mass/Vol] 5.8 g/dL Low 6.4-8.3 [facility] Comment on above: Performed By: #### L AB17, [id number] ####Event Marketing Intern: NICOLE BOWERS ([id number])[address] Sodium [Moles/Vol] 139 mmol/L Normal 136-145 [facility] Comment on above: Performed By: #### L AB17, [id number] ####Event Marketing Intern: NICOLE [id number])[facility] ([facility])[address] [place] [address] Urea nitrogen [Mass/Vol] 32 mg/dL High 8-21 [facility] Comment on above: Performed By: #### L AB17, [id number] ####Event Marketing Intern: NICOLE BOWERS ([phone])[facility] ([facility])[address] [place] [address] Comprehensive metabolic 1998 panelon 08-17-2024 Albumin [Mass/Vol] 2.9 g/dL Low 3.5 - 5.0 g/dL [facility] ALP [Catalytic activity/Vol] 188 U/L High 40 - 150 U/L [facility] ALT [Catalytic activity/Vol] 56 U/L High NINF - 40 U/L [facility] Anion gap [Moles/Vol] 12 mmol/L 3 - 13 mmol/L [facility] AST [Catalytic activity/Vol] 30 U/L NINF - 34 U/L [facility] Bilirubin [Mass/Vol] 1.6 mg/dL High NINF - 1.2 mg/dL [facility] Calcium [Mass/Vol] 7.7 mg/dL Low 8.4 - 10. 2 mg/dL [facility] Chloride [Moles/Vol] 97 mmol/L Low 98 - 10 7 mmol/L [facility] CO2 [Moles/Vol] 30 mmol/L High 22 - 29 mmol/L [facility] Creatinine [Mass/Vol] 1.53 mg/dL High 0.72 - 1.25 mg/dL [facility] GFR/1.73 sq M.predicted (S/P/Bld) [Vol rate/Area] 56.4 mL/min Low - PINF [facility] Glucose [Mass/Vol] 102 mg/dL High 74 - 100 mg/dL [facility] Interpretation and review of laboratory results Abnormal [facility] Potassium [Moles/Vol] 3.3 mmol/L Low 3.5 - 5.1 mmol/L [facility] Protein [Mass/Vol] 5.8 g/dL Low 6.4 - 8.3 g/dL [facility] Sodium [Moles/Vol] 139 mmol/L 136 - 145 mmol/L [facility] Urea nitrogen [Mass/Vol] 32 mg/dL High 8 - 21 mg/dL [facility] Laboratory - Chemistry and C hemistry - challengeon 08-17-2024 Magnesium [Mass/Vol] 1.3 mg/dL Low 1.6 - 2 .6 mg/dL [facility] MAGNESIUMon 08-17-2024 Magnesium [Mass/Vol] 1.3 mg/dL Low 1.6-2.6 [facility] Comment on above: Result Comment: ALEJANDRO R COMMENTS:Higher values can be expected in females during menses. Performed By: #### L AB17, [id number] ####Event Marketing Intern: NICOLE BOWERS ([phone])[facility] ([facility])[address] [place] [address] Magnesium [Mass/Vol]on 08-17 Interpretation and review of laboratory results Abnormal [facility] Nursing Noteon 08-17-2024 Nursing Note Normal [facility] Nursing Note Normal [facility] Nursing Note RN notified Dr. Asa vasquez of potassium 3.3 and mag 1.3. waiting for repletion orders. Pt refusing mag IV bolus. RN messaged Dr. Samuel asking for oral option instead. Pt refusing potassium until after he eats his breakfast. Normal [facility] Progress Noteon 08-17-2024 Progress Note Normal [facility] Progress Note Normal [facility] Progress Note Normal [facility] 30on 08-16-2024 30 Normal [facility] CBC W Auto Differential pane l (Bld)on 08-16-2024 Basophils (Bld) [#/Vol] 0 10*3/uL 0.0 - 0.2 10*3/uL [facility] Basophils/100 WBC (Bld) 0.5 % 0.0 - 2.0 % [facility] Eosinophils (Bld) [#/Vol] 0 10*3/uL 0.0 - 0.5 10*3/uL [facility] Eosinophils/100 WBC (Bld) 0.6 % 0.0 - 6.0 % [facility] Erythrocyte distribution width (RBC) [Ratio] 13.2 % 11.5 - 15.0 % [facility] Hematocrit (Bld) [Volume fraction] 39.6 % Low 40.0 - 52.0 % [facility] Hemoglobin (Bld) [Mass/Vol] 13.2 g/dL 13.0 - 18.0 g/dL [facility] Immature granulocytes (Bld) [#/Vol] 0 10*3/uL NINF - 0.1 10*3/uL [facility] Immature granulocytes/100 WBC (Bld) 0.5 % 0.0 - 2.0 % [facility] Interpretation and review of laboratory results Abnormal [facility] Lymphocytes (Bld) [#/Vol] 1.7 10*3/uL 1.0 - 4.3 10*3/uL [facility] Lymphocytes/100 WBC (Bld) 27.2 % 15.0 - 45.0 % [facility] MCH (RBC) [Entitic mass] 33.4 pg 26.0 - 34.0 pg [facility] MCHC (RBC) [Mass/Vol] 33.3 % 30.5 - 36.0 % [facility] MCV (RBC) [Entitic vol] 100.3 fL High 77.0 - 99.0 fL [facility] Monocytes (Bld) [#/Vol] 0.4 10*3/uL 0.0 - 0.9 10*3/uL [facility] Monocytes/100 WBC (Bld) 5.8 % 5.0 - 13.0 % [facility] Neutrophils (Bld) [#/Vol] 4 10*3/uL 1.8 - 7.5 10*3/uL [facility] Neutrophils/100 WBC (Bld) 65.4 % 38.0 - 82.0 % [facility] Nucleated RBC/100 WBC (Bld) [Ratio] 0 % [facility] Platelet mean volume (Bld) [Entitic vol] 9.7 fL 9.0 - 12.7 fL [facility] Platelets (Bld) [#/Vol] 242 10*3/uL 140 - 440 10*3/uL [facility] RBC (Bld) [#/Vol] 3.95 10*6/uL Low 4.40 - 5.9 0 10*6/uL [facility] WBC (Bld) [#/Vol] 6.2 10*3/uL 3.6 - 10.7 10*3/uL [facility] CBC WITH AUTO DIFFERENTIALon 08-16-2024 Basophils (Bld) [#/Vol] 0.0 10*3/uL Normal 0.0-0.2 [facility] Comment on above: Performed By: #### L [id number] ####Event Marketing Intern: NICOLE BOWERS ([phone])[facility])[address] [place] [address] Basophils/100 WBC (Bld) 0.5 % Normal 0.0-2.0 [facility] Comment on above: Performed By: #### L [id number] ####Event Marketing Intern: NICOLE BOWERS ([phone])[facility])[address] [place] [address] Eosinophils (Bld) [#/Vol] 0.0 10*3/uL Normal 0.0-0.5 [facility] Comment on above: Performed By: #### L [id number] ####Event Marketing Intern: NICLOE BOWERS ([phone])[facility])[address] [place] [address] Eosinophils/100 WBC (Bld) 0.6 % Normal 0.0-6.0 [facility] Comment on above: Performed By: #### L [id number] ####Event Marketing Intern: NICOLE BOWERS ([phone])[facility])[address] [place] [address] Erythrocyte distribution width (RBC) [Ratio] 13.2 % Normal 11.5-15.0 [facility] Comment on above: Performed By: #### L [id number] ####Event Marketing Intern: NICOLE BOWERS ([phone])[facility])[address] [place] [address] Hematocrit (Bld) [Volume fraction] 39.6 % Low 40.0-52.0 [facility] Comment on above: Performed By: #### L [id number] ####Event Marketing Intern: NICOLE BOWERS ([phone])[facility])[address] [place] [address] Hemoglobin (Bld) [Mass/Vol] 13.2 g/dL Normal 13.0-18.0 [facility] Comment on above: Performed By: #### L [id number] ####Event Marketing Intern: NICOLE BOWERS ([phone])[facility])[address] [place] [address] IMMATURE GRANS % 0.5 % Normal 0.0-2.0 [facility] Comment on above: Performed By: #### L [id number] ####Event Marketing Intern: NICOLE BOWERS ([id number])[facility])[address] [place] [address] IMMATURE GRANS ABSOLUTE 0.0 10*3/uL Normal <0.1 [facility] Comment on above: Performed By: #### L [id number] ####Event Marketing Intern: NICOLE BOWERS ([phone])[address] Lymphocytes (Bld) [#/Vol] 1.7 10*3/uL Normal 1.0-4.3 [facility] Comment on above: Performed By: #### L [id number] ####Event Marketing Intern: NICOLE BOWERS ([phone])[facility])[address] [place] [address] Lymphocytes/100 WBC (Bld) 27.2 % Normal 15.0-45.0 [facility] Comment on above: Performed By: #### L [id number] ####Event Marketing Intern: NICOLE BOWERS ([phone])[facility])[address] [place] [address] MCH (RBC) [Entitic mass] 33.4 pg Normal 26.0-34.0 [facility] Comment on above: Performed By: #### L [id number] ####Event Marketing Intern: NICOLE BOWERS ([phone])[address] MCHC 33.3 % Normal 30.5-36.0 [facility] Comment on above: Performed By: #### L [id number] ####Event Marketing Intern: NICOLE BOWERS ([id number])[facility])[address] [place] [address] MCV (RBC) [Entitic vol] 100.3 fL High 77.0-99.0 [facility] Comment on above: Performed By: #### L [id number] ####Event Marketing Intern: NICOLE BOWERS ([phone])[facility] ([facility])[address] [place] [address] Monocytes (Bld) [#/Vol] 0.4 10*3/uL Normal 0.0-0.9 [facility] Comment on above: Performed By: #### L [id number] ####Event Marketing Intern: NICOLE BOWERS ([phone])[facility])[address] [place] [address] Monocytes/100 WBC (Bld) 5.8 % Normal 5.0-13.0 [facility] Comment on above: Performed By: #### L [id number] ####Event Marketing Intern: NICOLE BOWERS ([phone])[facility] ([facility])[address] [place] [address] NEUTROPHILS ABSOLUTE 4.0 10*3/uL Normal 1.8-7.5 [facility] Comment on above: Performed By: #### L [id number] ####Event Marketing Intern: NICOLE BOWERS ([phone])[facility])[address] [place] [address] Neutrophils/100 WBC (Bld) 65.4 % Normal 38.0-82.0 [facility] Comment on above: Performed By: #### L [id number] ####Event Marketing Intern: NICOLE BOWERS ([phone])[facility] ([facility])[address] [place] [address] NRBC 0.0 /100 WBCs Normal 0.0-2.0 [facility] Comment on above: Performed By: #### L [id number] ####Event Marketing Intern: NICOLE BOWERS ([id number])[facility] ([facility])[address] [place] [address] Platelet mean volume (Bld) [Entitic vol] 9.7 fL Normal 9.0-12.7 [facility] Comment on above: Performed By: #### L [id number] ####Event Marketing Intern: NICOLE BOWERS ([phone])[facility] ([facility])[address] [place] [address] Platelets (Bld) [#/Vol] 242 10*3/uL Normal 140-440 [facility] Comment on above: Performed By: #### L [id number] ####Event Marketing Intern: NICOLE BOWERS ([id number])[facility] ([facility])[address] [place] [address] RBC (Bld) [#/Vol] 3.95 10*6/uL Low 4.40-5.90 [facility] Comment on above: Performed By: #### L [id number] ####Event Marketing Intern: NICOLE BOWERS ([phone])[facility] ([facility])[address] [place] [address] WBC (Bld) [#/Vol] 6.2 10*3/uL Normal 3.6-10.7 [facility] Comment on above: Performed By: #### L [id number] ####Event Marketing Intern: NICOLE BOWERS ([phone])[facility] ([facility])[address] [place] [address] COMPREHENSIVE METABOLIC PANE Ming 08-16-2024 Albumin [Mass/Vol] 2.9 g/dL Low 3.5-5.0 [facility] Comment on above: Performed By: #### L [id number] ####Event Marketing Intern: NICOLE BOWERS ([phone])[facility] ([facility])[address] [place] [address] ALP [Catalytic activity/Vol] 193 U/L High 40-150 [facility] Comment on above: Performed By: #### L [id number] ####Event Marketing Intern: NICOLE BOWERS ([id number])[facility] ([facility])[address] [place] [address] ALT [Catalytic activity/Vol] 64 U/L High <40 [facility] Comment on above: Performed By: #### L [id number] ####Event Marketing Intern: NICOLE BOWERS ([phone])[facility] [place] [address] Anion gap [Moles/Vol] 14 mmol/L High 3-13 [facility] Comment on above: Performed By: #### L [id number] ####Event Marketing Intern: NICOLE BOWERS ([id number])[facility])[address] [place] [address] AST [Catalytic activity/Vol] 35 U/L High <34 [facility] Comment on above: Performed By: #### L [id number] ####Event Marketing Intern: NICOLE BOWERS ([phone])[facility] ([facility])[address] [place] [address] Bilirubin [Mass/Vol] 1.8 mg/dL High <1.2 [facility] Comment on above: Performed By: #### L [id number] ####Event Marketing Intern: NICOLE BOWERS ([phone])[facility] ([facility])[address] [place] [address] Calcium [Mass/Vol] 7.8 mg/dL Low 8.4-10.2 [facility] Comment on above: Performed By: #### L [id number] ####Event Marketing Intern: NICOLE BOWERS ([phone])[facility])[address] [place] [address] [place] Chloride [Moles/Vol] 100 mmol/L Normal 98-107 [facility] Comment on above: Performed By: #### L [id number] ####Event Marketing Intern: NICOLE BOWERS ([phone])[facility] [place] [address] [place] CO2 [Moles/Vol] 27 mmol/L Normal 22-29 [facility] Comment on above: Performed By: #### L [id number] ####Event Marketing Intern: NICOLE BOWERS ([phone])[facility] ([facility])[address] [place] [address] [place] Creatinine [Mass/Vol] 1.81 mg/dL High 0.72-1.25 [facility] Comment on above: Performed By: #### L [id number] ####Event Marketing Intern: NICOLE BOWERS ([phone])[facility])[address] [place] [address] GLOMERULAR FILTRATION RATE ML/MIN/1.73 SQ M.PREDICTED 46.1 mL/min/1.73m*2 Low >60.0 [facility] Comment on above: Result Comment: Calc ulation based on the Chronic Kidney Disease Epidemiology Collaboration (CKD-EPI) equation refit without adjustment for race Performed By: #### L [id number] ####Event Marketing Intern: NICOLE BOWERS ([phone])[facility])[address] [place] [address] Glucose [Mass/Vol] 190 mg/dL High 74-100 [facility] Comment on above: Performed By: #### L [id number] ####Event Marketing Intern: NICOLE BOWERS ([phone])[address] Potassium [Moles/Vol] 3.2 mmol/L Low 3.5-5.1 [facility] Comment on above: Result Comment: [facility] potassium values may be up to 0.5 mmol/L lower than serum values. Performed By: #### L [id number] ####Event Marketing Intern: NICOLE BOWERS ([phone])[address] Protein [Mass/Vol] 5.6 g/dL Low 6.4-8.3 [facility] Comment on above: Performed By: #### L [id number] ####Event Marketing Intern: NICOLE BOWERS ([phone])[facility])[address] [place] [address] Sodium [Moles/Vol] 141 mmol/L Normal 136-145 [facility] Comment on above: Performed By: #### L [id number] ####Event Marketing Intern: NICOLE [phone])[facility])[address] [place] [address] Urea nitrogen [Mass/Vol] 33 mg/dL High 8-21 [facility] Comment on above: Performed By: #### L [id number] ####Event Marketing Intern: NICOLE BOWERS ([phone])[facility] ([facility])[address] [place] [address] Comprehensive metabolic 1998 panelon 08-16-2024 Albumin [Mass/Vol] 2.9 g/dL Low 3.5 - 5.0 g/dL [facility] ALP [Catalytic activity/Vol] 193 U/L High 40 - 150 U/L [facility] ALT [Catalytic activity/Vol] 64 U/L High NINF - 40 U/L [facility] Anion gap [Moles/Vol] 14 mmol/L High 3 - 13 mmol/L [facility] AST [Catalytic activity/Vol] 35 U/L High NINF - 34 U/L [facility] Bilirubin [Mass/Vol] 1.8 mg/dL High NINF - 1.2 mg/dL [facility] Calcium [Mass/Vol] 7.8 mg/dL Low 8.4 - 10. 2 mg/dL [facility] Chloride [Moles/Vol] 100 mmol/L 98 - 10 7 mmol/L [facility] CO2 [Moles/Vol] 27 mmol/L 22 - 29 mmol/L [facility] Creatinine [Mass/Vol] 1.81 mg/dL High 0.72 - 1.25 mg/dL [facility] GFR/1.73 sq M.predicted (S/P/Bld) [Vol rate/Area] 46.1 mL/min Low - PINF [facility] Glucose [Mass/Vol] 190 mg/dL High 74 - 100 mg/dL [facility] Interpretation and review of laboratory results Abnormal [facility] Potassium [Moles/Vol] 3.2 mmol/L Low 3.5 - 5.1 mmol/L [facility] Protein [Mass/Vol] 5.6 g/dL Low 6.4 - 8.3 g/dL [facility] Sodium [Moles/Vol] 141 mmol/L 136 - 145 mmol/L [facility] Urea nitrogen [Mass/Vol] 33 mg/dL High 8 - 21 mg/dL [facility] Nursing Noteon 08-16-2024 Nursing Note RN notified Dr. Peterson of 17 beat run of vtach. Pt asymptomatic. Mag level added to morning labs. Normal [facility] Progress Noteon 08-16-2024 Progress Note Normal [facility] Progress Note Normal [facility] Progress Note Normal [facility] 30on 08-15-2024 30 Normal [facility] 30 Normal [facility] CBC W Auto Differential pane l (Bld)on 08-15-2024 Basophils (Bld) [#/Vol] 0 10*3/uL 0.0 - 0.2 10*3/uL [facility] Basophils/100 WBC (Bld) 0.4 % 0.0 - 2.0 % [facility] Eosinophils (Bld) [#/Vol] 0.1 10*3/uL 0.0 - 0.5 10*3/uL [facility] Eosinophils/100 WBC (Bld) 0.7 % 0.0 - 6.0 % [facility] Erythrocyte distribution width (RBC) [Ratio] 13.3 % 11.5 - 15.0 % [facility] Hematocrit (Bld) [Volume fraction] 43.5 % 40.0 - 52.0 % [facility] Hemoglobin (Bld) [Mass/Vol] 14.7 g/dL 13.0 - 18.0 g/dL [facility] Immature granulocytes (Bld) [#/Vol] 0 10*3/uL NINF - 0.1 10*3/uL [facility] Immature granulocytes/100 WBC (Bld) 0.2 % 0.0 - 2.0 % [facility] Interpretation and review of laboratory results Abnormal [facility] Lymphocytes (Bld) [#/Vol] 3.6 10*3/uL 1.0 - 4.3 10*3/uL [facility] Lymphocytes/100 WBC (Bld) 43.9 % 15.0 - 45.0 % [facility] MCH (RBC) [Entitic mass] 33.6 pg 26.0 - 34.0 pg [facility] MCHC (RBC) [Mass/Vol] 33.8 % 30.5 - 36.0 % [facility] MCV (RBC) [Entitic vol] 99.3 fL High 77.0 - 99.0 fL [facility] Monocytes (Bld) [#/Vol] 0.7 10*3/uL 0.0 - 0.9 10*3/uL [facility] Monocytes/100 WBC (Bld) 8.6 % 5.0 - 13.0 % [facility] Neutrophils (Bld) [#/Vol] 3.7 10*3/uL 1.8 - 7.5 10*3/uL [facility] Neutrophils/100 WBC (Bld) 46.2 % 38.0 - 82.0 % [facility] Nucleated RBC/100 WBC (Bld) [Ratio] 0 % [facility] Platelet mean volume (Bld) [Entitic vol] 10.2 fL 9.0 - 12.7 fL [facility] Platelets (Bld) [#/Vol] 258 10*3/uL 140 - 440 10*3/uL [facility] RBC (Bld) [#/Vol] 4.38 10*6/uL Low 4.40 - 5.9 0 10*6/uL [facility] WBC (Bld) [#/Vol] 8.1 10*3/uL 3.6 - 10.7 10*3/uL [facility] CBC WITH AUTO DIFFERENTIALon 08-15-2024 Basophils (Bld) [#/Vol] 0.0 10*3/uL Normal 0.0-0.2 [facility] Comment on above: Performed By: #### L [id number] ####Event Marketing Intern: NICOLE BOWERS ([phone])[address] Basophils/100 WBC (Bld) 0.4 % Normal 0.0-2.0 [facility] Comment on above: Performed By: #### L [id number] ####Event Marketing Intern: NICOLE BOWERS ([phone])[facility] ([facility])[address] [place] [address] [place] Eosinophils (Bld) [#/Vol] 0.1 10*3/uL Normal 0.0-0.5 [facility] Comment on above: Performed By: #### L [id number] ####Event Marketing Intern: NICOLE BOWERS ([phone])[facility])[address] [place] [address] [place] Eosinophils/100 WBC (Bld) 0.7 % Normal 0.0-6.0 [facility] Comment on above: Performed By: #### L [id number] ####Event Marketing Intern: NICOLE BOWERS ([id number])[address] Erythrocyte distribution width (RBC) [Ratio] 13.3 % Normal 11.5-15.0 [facility] Comment on above: Performed By: #### L [id number] ####Event Marketing Intern: NICOLE BOWERS ([phone])[address] Hematocrit (Bld) [Volume fraction] 43.5 % Normal 40.0-52.0 [facility] Comment on above: Performed By: #### L [id number] ####Event Marketing Intern: NICOLE BOWERS ([phone])[address] Hemoglobin (Bld) [Mass/Vol] 14.7 g/dL Normal 13.0-18.0 [facility] Comment on above: Performed By: #### L [id number] ####Event Marketing Intern: NICOLE BOWERS ([id number])[address] IMMATURE GRANS % 0.2 % Normal 0.0-2.0 [facility] Comment on above: Performed By: #### L [id number] ####Event Marketing Intern: NICOLE BOWERS ([id number])[address] IMMATURE GRANS ABSOLUTE 0.0 10*3/uL Normal <0.1 [facility] Comment on above: Performed By: #### L [id number] ####Event Marketing Intern: NICOLE BOWERS ([phone])[address] Lymphocytes (Bld) [#/Vol] 3.6 10*3/uL Normal 1.0-4.3 [facility] Comment on above: Performed By: #### L [id number] ####Event Marketing Intern: NICOLE BOWERS ([phone])[facility])[address] [place] [address] Lymphocytes/100 WBC (Bld) 43.9 % Normal 15.0-45.0 [facility] Comment on above: Performed By: #### L [id number] ####Event Marketing Intern: NICOLE BOWERS ([phone])[facility])[address] [place] [address] MCH (RBC) [Entitic mass] 33.6 pg Normal 26.0-34.0 [facility] Comment on above: Performed By: #### L [id number] ####Event Marketing Intern: NICOLE BOWERS ([phone])[facility])[address] [place] [address] MCHC 33.8 % Normal 30.5-36.0 [facility] Comment on above: Performed By: #### L [id number] ####Event Marketing Intern: NICOLE BOWERS ([id number])[facility] ([facility])[address] [place] [address] MCV (RBC) [Entitic vol] 99.3 fL High 77.0-99.0 [facility] Comment on above: Performed By: #### L [id number] ####Event Marketing Intern: NICOLE BOWERS ([id number])[facility])[address] [place] [address] Monocytes (Bld) [#/Vol] 0.7 10*3/uL Normal 0.0-0.9 [facility] Comment on above: Performed By: #### L [id number] ####Event Marketing Intern: NICOLE BOWERS ([id number])[facility])[address] [place] [address] Monocytes/100 WBC (Bld) 8.6 % Normal 5.0-13.0 [facility] Comment on above: Performed By: #### L [id number] ####Event Marketing Intern: NICOLE BOWERS ([id number])[facility])[address] [place] [address] NEUTROPHILS ABSOLUTE 3.7 10*3/uL Normal 1.8-7.5 [facility] Comment on above: Performed By: #### L [id number] ####Event Marketing Intern: NICOLE BOWERS ([phone])[facility] ([facility])[address] [place] [address] Neutrophils/100 WBC (Bld) 46.2 % Normal 38.0-82.0 [facility] Comment on above: Performed By: #### L [id number] ####Event Marketing Intern: NICOLE BOWERS ([phone])[facility] ([facility])[address] [place] [address] NRBC 0.0 /100 WBCs Normal 0.0-2.0 [facility] Comment on above: Performed By: #### L [id number] ####Event Marketing Intern: NICOLE BOWERS ([phone])[facility] ([facility])[address] [place] [address] Platelet mean volume (Bld) [Entitic vol] 10.2 fL Normal 9.0-12.7 [facility] Comment on above: Performed By: #### L [id number] ####Event Marketing Intern: NICOLE BOWERS ([id number])[facility] ([facility])[address] [place] [address] Platelets (Bld) [#/Vol] 258 10*3/uL Normal 140-440 [facility] Comment on above: Performed By: #### L [id number] ####Event Marketing Intern: NICOLE BOWERS ([phone])[facility] ([facility])[address] [place] [address] [place] RBC (Bld) [#/Vol] 4.38 10*6/uL Low 4.40-5.90 [facility] Comment on above: Performed By: #### L [id number] ####Event Marketing Intern: NICOLE BOWERS ([phone])[facility] ([facility])[address] [place] [address] [place] WBC (Bld) [#/Vol] 8.1 10*3/uL Normal 3.6-10.7 [facility] Comment on above: Performed By: #### L [id number] ####Event Marketing Intern: NICOLE BOWERS ([phone])[facility] ([facility])[address] [place] [address] COMPREHENSIVE METABOLIC PANE Ming 08-15-2024 Albumin [Mass/Vol] 3.1 g/dL Low 3.5-5.0 [facility] Comment on above: Performed By: #### L [id number] ####Event Marketing Intern: NICOLE BOWERS ([phone])[facility] ([facility])[address] [place] [address] ALP [Catalytic activity/Vol] 223 U/L High 40-150 [facility] Comment on above: Performed By: #### L [id number] ####Event Marketing Intern: NICOLE BOWERS ([id number])[facility])[address] [place] [address] ALT [Catalytic activity/Vol] 69 U/L High <40 [facility] Comment on above: Performed By: #### L [id number] ####Event Marketing Intern: NICOLE BOWERS ([phone])[facility] ([facility])[address] [place] [address] Anion gap [Moles/Vol] 11 mmol/L Normal 3-13 [facility] Comment on above: Performed By: #### L [id number] ####Event Marketing Intern: NICOLE BOWERS ([phone])[facility])[address] [place] [address] AST [Catalytic activity/Vol] 32 U/L Normal <34 [facility] Comment on above: Performed By: #### L [id number] ####Event Marketing Intern: NICOLE BOWERS ([phone])[facility])[address] [place] [address] Bilirubin [Mass/Vol] 1.9 mg/dL High <1.2 [facility] Comment on above: Performed By: #### L [id number] ####Event Marketing Intern: NICOLE BOWERS ([phone])[facility])[address] [place] [address] Calcium [Mass/Vol] 8.3 mg/dL Low 8.4-10.2 [facility] Comment on above: Performed By: #### L [id number] ####Event Marketing Intern: NICOLE BOWERS ([phone])[facility] [place] [address] Chloride [Moles/Vol] 102 mmol/L Normal 98-107 [facility] Comment on above: Performed By: #### L [id number] ####Event Marketing Intern: NICOLE BOWERS ([phone])[facility] ([facility])[address] [place] [address] CO2 [Moles/Vol] 24 mmol/L Normal 22-29 [facility] Comment on above: Performed By: #### L [id number] ####Event Marketing Intern: NICOLE BOWERS ([phone])[facility] ([facility])[address] [place] [address] Creatinine [Mass/Vol] 1.94 mg/dL High 0.72-1.25 [facility] Comment on above: Performed By: #### L [id number] ####Event Marketing Intern: NICOLE BOWERS ([phone])[facility] ([facility])[address] [place] [address] GLOMERULAR FILTRATION RATE ML/MIN/1.73 SQ M.PREDICTED 42.4 mL/min/1.73m*2 Low >60.0 [facility] Comment on above: Result Comment: Calc ulation based on the Chronic Kidney Disease Epidemiology Collaboration (CKD-EPI) equation refit without adjustment for race Performed By: #### L [id number] ####Event Marketing Intern: NICOLE BOWERS ([phone])[facility] ([facility])[address] [place] [address] [place] Glucose [Mass/Vol] 104 mg/dL High 74-100 [facility] Comment on above: Performed By: #### L [id number] ####Event Marketing Intern: NICOLE BOWERS ([phone])[facility] ([facility])[address] [place] [address] Potassium [Moles/Vol] 3.6 mmol/L Normal 3.5-5.1 [facility] Comment on above: Result Comment: [facility] potassium values may be up to 0.5 mmol/L lower than serum values. Performed By: #### L [id number] ####Event Marketing Intern: NICOLE BOWERS ([phone])[facility])[address] [place] [address] Protein [Mass/Vol] 6.0 g/dL Low 6.4-8.3 [facility] Comment on above: Performed By: #### L [id number] ####Event Marketing Intern: NICOLE BOWERS ([phone])[facility])[address] [place] [address] Sodium [Moles/Vol] 137 mmol/L Normal 136-145 [facility] Comment on above: Performed By: #### L [id number] ####Event Marketing Intern: NICOLE BOWERS ([phone])[facility])[address] [place] [address] Urea nitrogen [Mass/Vol] 37 mg/dL High 8-21 [facility] Comment on above: Performed By: #### L [id number] ####Event Marketing Intern: NICOLE BOWERS ([phone])[facility])[address] [place] [address] Comprehensive metabolic 1998 panelon 08-15-2024 Albumin [Mass/Vol] 3.1 g/dL Low 3.5 - 5.0 g/dL [facility] ALP [Catalytic activity/Vol] 223 U/L High 40 - 150 U/L [facility] ALT [Catalytic activity/Vol] 69 U/L High NINF - 40 U/L [facility] Anion gap [Moles/Vol] 11 mmol/L 3 - 13 mmol/L [facility] AST [Catalytic activity/Vol] 32 U/L NINF - 34 U/L [facility] Bilirubin [Mass/Vol] 1.9 mg/dL High NINF - 1.2 mg/dL [facility] Calcium [Mass/Vol] 8.3 mg/dL Low 8.4 - 10. 2 mg/dL [facility] Chloride [Moles/Vol] 102 mmol/L 98 - 10 7 mmol/L [facility] CO2 [Moles/Vol] 24 mmol/L 22 - 29 mmol/L [facility] Creatinine [Mass/Vol] 1.94 mg/dL High 0.72 - 1.25 mg/dL [facility] GFR/1.73 sq M.predicted (S/P/Bld) [Vol rate/Area] 42.4 mL/min Low - PINF [facility] Glucose [Mass/Vol] 104 mg/dL High 74 - 100 mg/dL [facility] Interpretation and review of laboratory results Abnormal [facility] Potassium [Moles/Vol] 3.6 mmol/L 3.5 - 5.1 mmol/L [facility] Protein [Mass/Vol] 6 g/dL Low 6.4 - 8.3 g/dL [facility] Sodium [Moles/Vol] 137 mmol/L 136 - 145 mmol/L [facility] Urea nitrogen [Mass/Vol] 37 mg/dL High 8 - 21 mg/dL [facility] Consulton 08-15-2024 Consult Normal [facility] Progress Noteon 08-15-2024 Progress [facility] Progress Note Normal [facility] CBC W Auto Differential pane l (Bld)on 08-14-2024 Basophils (Bld) [#/Vol] 0 10*3/uL 0.0 - 0.2 10*3/uL [facility] Basophils/100 WBC (Bld) 0.3 % 0.0 - 2.0 % [facility] Eosinophils (Bld) [#/Vol] 0 10*3/uL 0.0 - 0.5 10*3/uL [facility] Eosinophils/100 WBC (Bld) 0.4 % 0.0 - 6.0 % [facility] Erythrocyte distribution width (RBC) [Ratio] 13.3 % 11.5 - 15.0 % [facility] Hematocrit (Bld) [Volume fraction] 41.7 % 40.0 - 52.0 % [facility] Hemoglobin (Bld) [Mass/Vol] 13.8 g/dL 13.0 - 18.0 g/dL [facility] Immature granulocytes (Bld) [#/Vol] 0 10*3/uL NINF - 0.1 10*3/uL [facility] Immature granulocytes/100 WBC (Bld) 0.4 % 0.0 - 2.0 % [facility] Interpretation and review of laboratory results Abnormal [facility] Lymphocytes (Bld) [#/Vol] 1.9 10*3/uL 1.0 - 4.3 10*3/uL [facility] Lymphocytes/100 WBC (Bld) 25.6 % 15.0 - 45.0 % [facility] MCH (RBC) [Entitic mass] 33.4 pg 26.0 - 34.0 pg [facility] MCHC (RBC) [Mass/Vol] 33.1 % 30.5 - 36.0 % [facility] MCV (RBC) [Entitic vol] 101 fL High 77.0 - 99.0 fL [facility] Monocytes (Bld) [#/Vol] 0.6 10*3/uL 0.0 - 0.9 10*3/uL [facility] Monocytes/100 WBC (Bld) 8.5 % 5.0 - 13.0 % [facility] Neutrophils (Bld) [#/Vol] 4.7 10*3/uL 1.8 - 7.5 10*3/uL [facility] Neutrophils/100 WBC (Bld) 64.8 % 38.0 - 82.0 % [facility] Nucleated RBC/100 WBC (Bld) [Ratio] 0 % [facility] Platelet mean volume (Bld) [Entitic vol] 10.2 fL 9.0 - 12.7 fL [facility] Platelets (Bld) [#/Vol] 258 10*3/uL 140 - 440 10*3/uL [facility] RBC (Bld) [#/Vol] 4.13 10*6/uL Low 4.40 - 5.9 0 10*6/uL [facility] WBC (Bld) [#/Vol] 7.3 10*3/uL 3.6 - 10.7 10*3/uL [facility] CBC WITH AUTO DIFFERENTIALon 08-14-2024 Basophils (Bld) [#/Vol] 0.0 10*3/uL Normal 0.0-0.2 [facility] Comment on above: Performed By: #### L [id number] ####Event Marketing Intern: NICOLE BOWERS ([phone])[facility])[address] [place] [address] Basophils/100 WBC (Bld) 0.3 % Normal 0.0-2.0 [facility] Comment on above: Performed By: #### L [id number] ####Event Marketing Intern: NICOLE BOWERS ([phone])[facility])[address] [place] [address] Eosinophils (Bld) [#/Vol] 0.0 10*3/uL Normal 0.0-0.5 [facility] Comment on above: Performed By: #### L [id number] ####Event Marketing Intern: NICOLE BOWERS ([id number])[address] Eosinophils/100 WBC (Bld) 0.4 % Normal 0.0-6.0 [facility] Comment on above: Performed By: #### L [id number] ####Event Marketing Intern: NICOLE BOWERS ([phone])[facility])[address] [place] [address] Erythrocyte distribution width (RBC) [Ratio] 13.3 % Normal 11.5-15.0 [facility] Comment on above: Performed By: #### L [id number] ####Event Marketing Intern: NICOLE BOWERS ([id number])[address] Hematocrit (Bld) [Volume fraction] 41.7 % Normal 40.0-52.0 [facility] Comment on above: Performed By: #### L [id number] ####Event Marketing Intern: NICOLE BOWERS ([id number])[address] Hemoglobin (Bld) [Mass/Vol] 13.8 g/dL Normal 13.0-18.0 [facility] Comment on above: Performed By: #### L [id number] ####Event Marketing Intern: NICOLE BOWERS ([id number])[facility])[address] [place] [address] IMMATURE GRANS % 0.4 % Normal 0.0-2.0 [facility] Comment on above: Performed By: #### L [id number] ####Event Marketing Intern: NICOLE BOWERS ([id number])[facility])[address] [place] [address] IMMATURE GRANS ABSOLUTE 0.0 10*3/uL Normal <0.1 [facility] Comment on above: Performed By: #### L [id number] ####Event Marketing Intern: NICOLE BOWERS ([phone])[facility])[address] [place] [address] Lymphocytes (Bld) [#/Vol] 1.9 10*3/uL Normal 1.0-4.3 [facility] Comment on above: Performed By: #### L [id number] ####Event Marketing Intern: NICOLE BOWERS ([id number])[facility])[address] [place] [address] Lymphocytes/100 WBC (Bld) 25.6 % Normal 15.0-45.0 [facility] Comment on above: Performed By: #### L [id number] ####Event Marketing Intern: NICOLE BOWERS ([phone])[facility])[address] [place] [address] MCH (RBC) [Entitic mass] 33.4 pg Normal 26.0-34.0 [facility] Comment on above: Performed By: #### L [id number] ####Event Marketing Intern: NICOLE BOWERS ([phone])[facility])[address] [place] [address] MCHC 33.1 % Normal 30.5-36.0 [facility] Comment on above: Performed By: #### L [id number] ####Event Marketing Intern: NICOLE BOWERS ([phone])[facility])[address] [place] [address] MCV (RBC) [Entitic vol] 101.0 fL High 77.0-99.0 [facility] Comment on above: Performed By: #### L [id number] ####Event Marketing Intern: NICOLE BOWERS ([phone])[facility])[address] [place] [address] Monocytes (Bld) [#/Vol] 0.6 10*3/uL Normal 0.0-0.9 [facility] Comment on above: Performed By: #### L [id number] ####Event Marketing Intern: NICOLE BOWERS ([id number])[facility] ([facility])[address] [place] [address] Monocytes/100 WBC (Bld) 8.5 % Normal 5.0-13.0 [facility] Comment on above: Performed By: #### L [id number] ####Event Marketing Intern: NICOLE BOWERS ([id number])[facility] ([facility])[address] [place] [address] NEUTROPHILS ABSOLUTE 4.7 10*3/uL Normal 1.8-7.5 [facility] Comment on above: Performed By: #### L [id number] ####Event Marketing Intern: NICOLE BOWERS ([id number])[facility] ([facility])[address] [place] [address] Neutrophils/100 WBC (Bld) 64.8 % Normal 38.0-82.0 [facility] Comment on above: Performed By: #### L [id number] ####Event Marketing Intern: NICOLE BOWERS ([phone])[facility])[address] [place] [address] NRBC 0.0 /100 WBCs Normal 0.0-2.0 [facility] Comment on above: Performed By: #### L [id number] ####Event Marketing Intern: NICOLE BOWERS ([phone])[facility])[address] [place] [address] Platelet mean volume (Bld) [Entitic vol] 10.2 fL Normal 9.0-12.7 [facility] Comment on above: Performed By: #### L [id number] ####Event Marketing Intern: NICOLE BOWERS ([id number])[facility] ([facility])[address] [place] [address] Platelets (Bld) [#/Vol] 258 10*3/uL Normal 140-440 [facility] Comment on above: Performed By: #### L [id number] ####Event Marketing Intern: NICOLE BOWERS ([id number])[facility] ([facility])[address] [place] [address] RBC (Bld) [#/Vol] 4.13 10*6/uL Low 4.40-5.90 [facility] Comment on above: Performed By: #### L [id number] ####Event Marketing Intern: NICOLE BOWERS ([id number])[facility] ([facility])[address] [place] [address] WBC (Bld) [#/Vol] 7.3 10*3/uL Normal 3.6-10.7 [facility] Comment on above: Performed By: #### L [id number] ####Event Marketing Intern: NICOLE BOWERS ([phone])[facility] ([facility])[address] [place] [address] COMPREHENSIVE METABOLIC PANE Ming 08-14-2024 Albumin [Mass/Vol] 2.8 g/dL Low 3.5-5.0 [facility] Comment on above: Performed By: #### L [id number], LAB17 ####Event Marketing Intern: NICOLE BOWERS ([phone])[facility] ([facility])[address] [place] [address] ALP [Catalytic activity/Vol] 230 U/L High 40-150 [facility] Comment on above: Performed By: #### L [id number], LAB17 ####Event Marketing Intern: NICOLE BOWERS ([id number])[facility])[address] [place] [address] ALT [Catalytic activity/Vol] 73 U/L High <40 [facility] Comment on above: Performed By: #### L [id number], LAB17 ####Event Marketing Intern: NICOLE BOWERS ([id number])[facility] ([facility])[address] Anion gap [Moles/Vol] 10 mmol/L Normal 3-13 [facility] Comment on above: Performed By: #### L AB103, LAB17 ####Event Marketing Intern: NICOLE BOWERS ([phone])[facility])[address] AST [Catalytic activity/Vol] 36 U/L High <34 [facility] Comment on above: Performed By: #### L AB103, LAB17 ####Event Marketing Intern: NICOLE BOWERS ([id number])[facility])[address] Bilirubin [Mass/Vol] 2.1 mg/dL High <1.2 [facility] Comment on above: Performed By: #### L JACKI, LAB17 ####Event Marketing Intern: NICOLE BOWERS ([phone])[facility])[address] [place] [address] Calcium [Mass/Vol] 8.2 mg/dL Low 8.4-10.2 [facility] Comment on above: Performed By: #### Pedro ECHEVERRIA, LAB17 ####Event Marketing Intern: NICOLE BOWERS ([id number])[facility] [place] [address] [place] Chloride [Moles/Vol] 102 mmol/L Normal 98-107 [facility] Comment on above: Performed By: #### L ABKiera, LAB17 ####Event Marketing Intern: NICOLE BOWERS ([id number])[facility] [place] [address] [place] CO2 [Moles/Vol] 26 mmol/L Normal 22-29 [facility] Comment on above: Performed By: #### L AB103, LAB17 ####Event Marketing Intern: NICOLE BOWERS ([phone])[facility] [place] [address] [place] Creatinine [Mass/Vol] 2.17 mg/dL High 0.72-1.25 [facility] Comment on above: Performed By: #### L AB103, LAB17 ####Event Marketing Intern: NICOLE BOWERS ([id number])[address] GLOMERULAR FILTRATION RATE ML/MIN/1.73 SQ M.PREDICTED 37.1 mL/min/1.73m*2 Low >60.0 [facility] Comment on above: Result Comment: Calc ulation based on the Chronic Kidney Disease Epidemiology Collaboration (CKD-EPI) equation refit without adjustment for race Performed By: #### L [id number], LAB17 ####Event Marketing Intern: NICOLE BOWERS ([phone])[address] Glucose [Mass/Vol] 151 mg/dL High 74-100 [facility] Comment on above: Performed By: #### L AB103, LAB17 ####Event Marketing Intern: NICOLE BOWERS ([phone])[address] Potassium [Moles/Vol] 3.3 mmol/L Low 3.5-5.1 [facility] Comment on above: Result Comment: [facility] potassium values may be up to 0.5 mmol/L lower than serum values. Performed By: #### L AB103, LAB17 ####Event Marketing Intern: NICOLE BOWERS ([id number])[address] Protein [Mass/Vol] 5.5 g/dL Low 6.4-8.3 [facility] Comment on above: Performed By: #### L AB103, LAB17 ####Event Marketing Intern: NICOLE BOWERS ([phone])[address] Sodium [Moles/Vol] 138 mmol/L Normal 136-145 [facility] Comment on above: Performed By: #### L AB103, LAB17 ####Event Marketing Intern: NICOLE BOWERS ([phone])[address] [place] [address] [place] Urea nitrogen [Mass/Vol] 39 mg/dL High 8-21 [facility] Comment on above: Performed By: #### L [id number], LAB17 ####Event Marketing Intern: NICOLE BOWERS ([phone])[facility] ([facility])[address] [place] [address] Comprehensive metabolic 1998 panelon 08-14-2024 Albumin [Mass/Vol] 2.8 g/dL Low 3.5 - 5.0 g/dL [facility] ALP [Catalytic activity/Vol] 230 U/L High 40 - 150 U/L [facility] ALT [Catalytic activity/Vol] 73 U/L High NINF - 40 U/L [facility] Anion gap [Moles/Vol] 10 mmol/L 3 - 13 mmol/L [facility] AST [Catalytic activity/Vol] 36 U/L High NINF - 34 U/L [facility] Bilirubin [Mass/Vol] 2.1 mg/dL High NINF - 1.2 mg/dL [facility] Calcium [Mass/Vol] 8.2 mg/dL Low 8.4 - 10. 2 mg/dL [facility] Chloride [Moles/Vol] 102 mmol/L 98 - 10 7 mmol/L [facility] CO2 [Moles/Vol] 26 mmol/L 22 - 29 mmol/L [facility] Creatinine [Mass/Vol] 2.17 mg/dL High 0.72 - 1.25 mg/dL [facility] GFR/1.73 sq M.predicted (S/P/Bld) [Vol rate/Area] 37.1 mL/min Low - PINF [facility] Glucose [Mass/Vol] 151 mg/dL High 74 - 100 mg/dL [facility] Interpretation and review of laboratory results Abnormal [facility] Potassium [Moles/Vol] 3.3 mmol/L Low 3.5 - 5.1 mmol/L [facility] Protein [Mass/Vol] 5.5 g/dL Low 6.4 - 8.3 g/dL [facility] Sodium [Moles/Vol] 138 mmol/L 136 - 145 mmol/L [facility] Urea nitrogen [Mass/Vol] 39 mg/dL High 8 - 21 mg/dL [facility] Laboratory - Chemistry and C hemistry - challengeon 08-14-2024 Magnesium [Mass/Vol] 1.6 mg/dL 1.6 - 2 .6 mg/dL [facility] MAGNESIUMon 08-14-2024 Magnesium [Mass/Vol] 1.6 mg/dL Normal 1.6-2.6 [facility] Comment on above: Result Comment: ALEJANDRO Aleman COMMENTS:Higher values can be expected in females during menses. Performed By: #### L AB103, LAB17 ####Event Marketing Intern: NICOLE BOWERS ([phone])[facility] ([facility])[address] [place] [address] Magnesium [Mass/Vol]on 08-14 Interpretation and review of laboratory results Normal [facility] Nursing Noteon 08-14-2024 Nursing Note Pt refused bloodwork this night, RN attempted to educate on reasons why bloodwork being drawn daily. Notified Dr. Hawley. Normal [facility] Progress Noteon 08-14-2024 Progress Note Normal [facility] Progress Note Normal [facility] Progress Note Normal [facility] 30on 08-13-2024 30 Normal [facility] 30 Normal [facility] [id number] 08-13-[address]24 [id number] an accepting DR at [facility], no beds. Continues on IV Bumex. Plan is home when stable, [facility] [phone] met with pt. Introduced self. SW completed 30 day readmission questionnaire with pt. Pt denies any needs from at this time. [facility] CBC W Auto Differential pane l (Bld)on 08-13-2024 Basophils (Bld) [#/Vol] 0 10*3/uL 0.0 - 0.2 10*3/uL [facility] Basophils/100 WBC (Bld) 0.4 % 0.0 - 2.0 % [facility] Eosinophils (Bld) [#/Vol] 0 10*3/uL 0.0 - 0.5 10*3/uL [facility] Eosinophils/100 WBC (Bld) 0.4 % 0.0 - 6.0 % [facility] Erythrocyte distribution width (RBC) [Ratio] 13.2 % 11.5 - 15.0 % [facility] Hematocrit (Bld) [Volume fraction] 40.9 % 40.0 - 52.0 % [facility] Hemoglobin (Bld) [Mass/Vol] 13.8 g/dL 13.0 - 18.0 g/dL [facility] Immature granulocytes (Bld) [#/Vol] 0 10*3/uL NINF - 0.1 10*3/uL [facility] Immature granulocytes/100 WBC (Bld) 0.3 % 0.0 - 2.0 % [facility] Interpretation and review of laboratory results Abnormal [facility] Lymphocytes (Bld) [#/Vol] 2 10*3/uL 1.0 - 4.3 10*3/uL [facility] Lymphocytes/100 WBC (Bld) 27.4 % 15.0 - 45.0 % [facility] MCH (RBC) [Entitic mass] 33.1 pg 26.0 - 34.0 pg [facility] MCHC (RBC) [Mass/Vol] 33.7 % 30.5 - 36.0 % [facility] MCV (RBC) [Entitic vol] 98.1 fL 77.0 - 99.0 fL [facility] Monocytes (Bld) [#/Vol] 0.7 10*3/uL 0.0 - 0.9 10*3/uL [facility] Monocytes/100 WBC (Bld) 8.8 % 5.0 - 13.0 % [facility] Neutrophils (Bld) [#/Vol] 4.7 10*3/uL 1.8 - 7.5 10*3/uL [facility] Neutrophils/100 WBC (Bld) 62.7 % 38.0 - 82.0 % [facility] Nucleated RBC/100 WBC (Bld) [Ratio] 0 % [facility] Platelet mean volume (Bld) [Entitic vol] 10.2 fL 9.0 - 12.7 fL [facility] Platelets (Bld) [#/Vol] 246 10*3/uL 140 - 440 10*3/uL [facility] RBC (Bld) [#/Vol] 4.17 10*6/uL Low 4.40 - 5.9 0 10*6/uL [facility] WBC (Bld) [#/Vol] 7.4 10*3/uL 3.6 - 10.7 10*3/uL [facility] CBC WITH AUTO DIFFERENTIALon 08-13-2024 Basophils (Bld) [#/Vol] 0.0 10*3/uL Normal 0.0-0.2 [facility] Comment on above: Performed By: #### L [id number] ####Event Marketing Intern: NICOLE BOWERS ([phone])[facility])[address] [place] [address] Basophils/100 WBC (Bld) 0.4 % Normal 0.0-2.0 [facility] Comment on above: Performed By: #### L [id number] ####Event Marketing Intern: NICOLE BOWERS ([phone])[facility])[address] [place] [address] Eosinophils (Bld) [#/Vol] 0.0 10*3/uL Normal 0.0-0.5 [facility] Comment on above: Performed By: #### L [id number] ####Event Marketing Intern: NICOLE BOWERS ([phone])[facility])[address] [place] [address] Eosinophils/100 WBC (Bld) 0.4 % Normal 0.0-6.0 [facility] Comment on above: Performed By: #### L [id number] ####Event Marketing Intern: NICOLE BOWERS ([phone])[facility])[address] [place] [address] Erythrocyte distribution width (RBC) [Ratio] 13.2 % Normal 11.5-15.0 [facility] Comment on above: Performed By: #### L [id number] ####Event Marketing Intern: NICOLE BOWERS ([phone])[facility])[address] [place] [address] Hematocrit (Bld) [Volume fraction] 40.9 % Normal 40.0-52.0 [facility] Comment on above: Performed By: #### L [id number] ####Event Marketing Intern: NICOLE BOWERS ([phone])[facility])[address] [place] [address] Hemoglobin (Bld) [Mass/Vol] 13.8 g/dL Normal 13.0-18.0 [facility] Comment on above: Performed By: #### L [id number] ####Event Marketing Intern: NICOLE BOWERS ([phone])[facility])[address] [place] [address] IMMATURE GRANS % 0.3 % Normal 0.0-2.0 [facility] Comment on above: Performed By: #### L [id number] ####Event Marketing Intern: NICOLE BOWERS ([phone])[facility])[address] [place] [address] IMMATURE GRANS ABSOLUTE 0.0 10*3/uL Normal <0.1 [facility] Comment on above: Performed By: #### L [id number] ####Event Marketing Intern: NICOLE BOWERS ([phone])[facility] ([facility])[address] [place] [address] Lymphocytes (Bld) [#/Vol] 2.0 10*3/uL Normal 1.0-4.3 [facility] Comment on above: Performed By: #### L [id number] ####Event Marketing Intern: NICOLE BOWERS ([phone])[facility])[address] [place] [address] Lymphocytes/100 WBC (Bld) 27.4 % Normal 15.0-45.0 [facility] Comment on above: Performed By: #### L [id number] ####Event Marketing Intern: NICOLE BOWERS ([phone])[facility])[address] [place] [address] MCH (RBC) [Entitic mass] 33.1 pg Normal 26.0-34.0 [facility] Comment on above: Performed By: #### L [id number] ####Event Marketing Intern: NICOLE BOWERS ([phone])[facility] [place] [address] MCHC 33.7 % Normal 30.5-36.0 [facility] Comment on above: Performed By: #### L [id number] ####Event Marketing Intern: NICOLE BOWERS ([phone])[facility] ([facility])[address] [place] [address] MCV (RBC) [Entitic vol] 98.1 fL Normal 77.0-99.0 [facility] Comment on above: Performed By: #### L [id number] ####Event Marketing Intern: NICOLE BOWERS ([phone])[facility] ([facility])[address] [place] [address] Monocytes (Bld) [#/Vol] 0.7 10*3/uL Normal 0.0-0.9 [facility] Comment on above: Performed By: #### L [id number] ####Event Marketing Intern: NICOLE BOWERS ([phone])[facility] ([facility])[address] [place] [address] Monocytes/100 WBC (Bld) 8.8 % Normal 5.0-13.0 [facility] Comment on above: Performed By: #### L [id number] ####Event Marketing Intern: NICOLE BOWERS ([phone])[facility] ([facility])[address] [place] [address] NEUTROPHILS ABSOLUTE 4.7 10*3/uL Normal 1.8-7.5 [facility] Comment on above: Performed By: #### L [id number] ####Event Marketing Intern: NICOLE BOWERS ([phone])[facility] ([facility])[address] [place] [address] Neutrophils/100 WBC (Bld) 62.7 % Normal 38.0-82.0 [facility] Comment on above: Performed By: #### L [id number] ####Event Marketing Intern: NICOLE BOWERS ([phone])[facility] ([facility])[address] [place] [address] NRBC 0.0 /100 WBCs Normal 0.0-2.0 [facility] Comment on above: Performed By: #### L [id number] ####Event Marketing Intern: NICOLE BOWERS ([phone])[facility])[address] [place] [address] Platelet mean volume (Bld) [Entitic vol] 10.2 fL Normal 9.0-12.7 [facility] Comment on above: Performed By: #### L [id number] ####Event Marketing Intern: NICOLE BOWERS ([phone])[facility] ([facility])[address] [place] [address] Platelets (Bld) [#/Vol] 246 10*3/uL Normal 140-440 [facility] Comment on above: Performed By: #### L [id number] ####Event Marketing Intern: NICOLE BOWERS ([phone])[facility])[address] [place] [address] RBC (Bld) [#/Vol] 4.17 10*6/uL Low 4.40-5.90 [facility] Comment on above: Performed By: #### L [id number] ####Event Marketing Intern: NICOLE BOWERS ([phone])[facility])[address] [place] [address] WBC (Bld) [#/Vol] 7.4 10*3/uL Normal 3.6-10.7 [facility] Comment on above: Performed By: #### L [id number] ####Event Marketing Intern: NICOLE BOWERS ([phone])[facility])[address] [place] [address] COMPREHENSIVE METABOLIC PANE Ming 08-13-2024 Albumin [Mass/Vol] 3.0 g/dL Low 3.5-5.0 [facility] Comment on above: Performed By: #### L [id number] ####Event Marketing Intern: NICOLE BOWERS ([phone])[facility])[address] [place] [address] ALP [Catalytic activity/Vol] 232 U/L High 40-150 [facility] Comment on above: Performed By: #### L [id number] ####Event Marketing Intern: NICOLE BOWERS ([phone])[facility] ([facility])[address] [place] [address] ALT [Catalytic activity/Vol] 83 U/L High <40 [facility] Comment on above: Performed By: #### L [id number] ####Event Marketing Intern: NICOLE BOWERS ([phone])[facility] ([facility])[address] [place] [address] Anion gap [Moles/Vol] 11 mmol/L Normal 3-13 [facility] Comment on above: Performed By: #### L [id number] ####Event Marketing Intern: NICOLE BOWERS ([phone])[facility] ([facility])[address] [place] [address] AST [Catalytic activity/Vol] 38 U/L High <34 [facility] Comment on above: Performed By: #### L [id number] ####Event Marketing Intern: NICOLE BOWERS ([id number])[facility] ([facility])[address] [place] [address] Bilirubin [Mass/Vol] 2.9 mg/dL High <1.2 [facility] Comment on above: Performed By: #### L [id number] ####Event Marketing Intern: NICOLE BOWERS ([phone])[facility] ([facility])[address] [place] [address] Calcium [Mass/Vol] 8.4 mg/dL Normal 8.4-10.2 [facility] Comment on above: Performed By: #### L [id number] ####Event Marketing Intern: NICOLE BOWERS ([phone])[facility] ([facility])[address] [place] [address] [place] Chloride [Moles/Vol] 105 mmol/L Normal 98-107 [facility] Comment on above: Performed By: #### L [id number] ####Event Marketing Intern: NICOLE BOWERS ([phone])[facility] ([facility])[address] [place] [address] [place] CO2 [Moles/Vol] 20 mmol/L Low 22-29 [facility] Comment on above: Performed By: #### L [id number] ####Event Marketing Intern: NICOLE BOWERS ([phone])[facility])[address] [place] [address] Creatinine [Mass/Vol] 2.24 mg/dL High 0.72-1.25 [facility] Comment on above: Performed By: #### L [id number] ####Event Marketing Intern: NICOLE BOWERS ([phone])[facility])[address] [place] [address] GLOMERULAR FILTRATION RATE ML/MIN/1.73 SQ M.PREDICTED 35.7 mL/min/1.73m*2 Low >60.0 [facility] Comment on above: Result Comment: Calc ulation based on the Chronic Kidney Disease Epidemiology Collaboration (CKD-EPI) equation refit without adjustment for race Performed By: #### L [id number] ####Event Marketing Intern: NICOLE BOWERS ([phone])[facility] ([facility])[address] [place] [address] Glucose [Mass/Vol] 165 mg/dL High 74-100 [facility] Comment on above: Performed By: #### L [id number] ####Event Marketing Intern: NICOLE BOWERS ([phone])[facility])[address] [place] [address] Potassium [Moles/Vol] 3.7 mmol/L Normal 3.5-5.1 [facility] Comment on above: Result Comment: [facility] potassium values may be up to 0.5 mmol/L lower than serum values. Performed By: #### L [id number] ####Event Marketing Intern: NICOLE BOWERS ([phone])[facility] ([facility])[address] [place] [address] Protein [Mass/Vol] 5.7 g/dL Low 6.4-8.3 [facility] Comment on above: Performed By: #### L [id number] ####Event Marketing Intern: NICOLE BOWERS ([phone])[facility])[address] [place] [address] Sodium [Moles/Vol] 136 mmol/L Normal 136-145 [facility] Comment on above: Performed By: #### L [id number] ####Event Marketing Intern: NICOLE BOWERS ([phone])[facility] ([facility])[address] [place] [address] Urea nitrogen [Mass/Vol] 47 mg/dL High 8-21 [facility] Comment on above: Performed By: #### L [id number] ####Event Marketing Intern: NICOLE BOWERS ([phone])[facility] ([facility])[address] [place] [address] Comprehensive metabolic 1998 panelon 08-13-2024 Albumin [Mass/Vol] 3 g/dL Low 3.5 - 5.0 g/dL [facility] ALP [Catalytic activity/Vol] 232 U/L High 40 - 150 U/L [facility] ALT [Catalytic activity/Vol] 83 U/L High NINF - 40 U/L [facility] Anion gap [Moles/Vol] 11 mmol/L 3 - 13 mmol/L [facility] AST [Catalytic activity/Vol] 38 U/L High NINF - 34 U/L [facility] Bilirubin [Mass/Vol] 2.9 mg/dL High NINF - 1.2 mg/dL [facility] Calcium [Mass/Vol] 8.4 mg/dL 8.4 - 10. 2 mg/dL [facility] Chloride [Moles/Vol] 105 mmol/L 98 - 10 7 mmol/L [facility] CO2 [Moles/Vol] 20 mmol/L Low 22 - 29 mmol/L [facility] Creatinine [Mass/Vol] 2.24 mg/dL High 0.72 - 1.25 mg/dL [facility] GFR/1.73 sq M.predicted (S/P/Bld) [Vol rate/Area] 35.7 mL/min Low - PINF [facility] Glucose [Mass/Vol] 165 mg/dL High 74 - 100 mg/dL [facility] Interpretation and review of laboratory results Abnormal [facility] Potassium [Moles/Vol] 3.7 mmol/L 3.5 - 5.1 mmol/L [facility] Protein [Mass/Vol] 5.7 g/dL Low 6.4 - 8.3 g/dL [facility] Sodium [Moles/Vol] 136 mmol/L 136 - 145 mmol/L [facility] Urea nitrogen [Mass/Vol] 47 mg/dL High 8 - 21 mg/dL [facility] LACTIC ACID WITH REFLEXon Lactate [Moles/Vol] 1.9 mmol/L Normal 0.5-2.2 [facility] Comment on above: Performed By: #### L [id number] ####Event Marketing Intern: NICOLE BOWERS ([phone])[facility] ([facility])[address] [place] [address] Laboratory - Chemistry and C hemistry - challengeon 08-13-2024 Lactate [Moles/Vol] 1.9 mmol/L 0.5 - 2. 2 mmol/L [facility] No Panel Informationon 08-13 Interpretation and review of laboratory results Normal [facility] Nursing Noteon 08-13-2024 Nursing Note RN notified Dr. Demarco rai that patient is refusing all labs this morning. Normal [facility] Progress Noteon 08-13-2024 Progress Note [facility] Progress Note Normal [facility] Progress Note Normal [facility] Progress Note Normal [facility] [id number] 08-12-2024 [id number] Normal [facility] 30on 08-12-2024 30 Normal [facility] [id number] 08-12-2024 [id number] Informed pt that we do not take his insurance. Can only go to [facility]. Made Dr aware, he is waiting for a return call to see if we can transfer. . Normal [facility] CBC W Auto Differential pane l (Bld)on 08-12-2024 Basophils (Bld) [#/Vol] 0 10*3/uL 0.0 - 0.2 10*3/uL [facility] Basophils/100 WBC (Bld) 0.5 % 0.0 - 2.0 % [facility] Eosinophils (Bld) [#/Vol] 0 10*3/uL 0.0 - 0.5 10*3/uL [facility] Eosinophils/100 WBC (Bld) 0.2 % 0.0 - 6.0 % [facility] Erythrocyte distribution width (RBC) [Ratio] 13.2 % 11.5 - 15.0 % [facility] Hematocrit (Bld) [Volume fraction] 42.2 % 40.0 - 52.0 % [facility] Hemoglobin (Bld) [Mass/Vol] 14 g/dL 13.0 - 18.0 g/dL [facility] Immature granulocytes (Bld) [#/Vol] 0 10*3/uL NINF - 0.1 10*3/uL [facility] Immature granulocytes/100 WBC (Bld) 0.2 % 0.0 - 2.0 % [facility] Interpretation and review of laboratory results Abnormal [facility] Lymphocytes (Bld) [#/Vol] 2.7 10*3/uL 1.0 - 4.3 10*3/uL [facility] Lymphocytes/100 WBC (Bld) 34.1 % 15.0 - 45.0 % [facility] MCH (RBC) [Entitic mass] 33.5 pg 26.0 - 34.0 pg [facility] MCHC (RBC) [Mass/Vol] 33.2 % 30.5 - 36.0 % [facility] MCV (RBC) [Entitic vol] 101 fL High 77.0 - 99.0 fL [facility] Monocytes (Bld) [#/Vol] 0.7 10*3/uL 0.0 - 0.9 10*3/uL [facility] Monocytes/100 WBC (Bld) 9.2 % 5.0 - 13.0 % [facility] Neutrophils (Bld) [#/Vol] 4.5 10*3/uL 1.8 - 7.5 10*3/uL [facility] Neutrophils/100 WBC (Bld) 55.8 % 38.0 - 82.0 % [facility] Nucleated RBC/100 WBC (Bld) [Ratio] 0.2 % [facility] Platelet mean volume (Bld) [Entitic vol] 10.5 fL 9.0 - 12.7 fL [facility] Platelets (Bld) [#/Vol] 263 10*3/uL 140 - 440 10*3/uL [facility] RBC (Bld) [#/Vol] 4.18 10*6/uL Low 4.40 - 5.9 0 10*6/uL [facility] WBC (Bld) [#/Vol] 8 10*3/uL 3.6 - 10.7 10*3/uL [facility] CBC WITH AUTO DIFFERENTIALon 08-12-2024 Basophils (Bld) [#/Vol] 0.0 10*3/uL Normal 0.0-0.2 [facility] Comment on above: Performed By: #### L [id number] ####Event Marketing Intern: NICOLE BOWERS ([phone])[facility])[address] [place] [address] Basophils/100 WBC (Bld) 0.5 % Normal 0.0-2.0 [facility] Comment on above: Performed By: #### L [id number] ####Event Marketing Intern: NICOLE BOWERS ([phone])[facility])[address] [place] [address] Eosinophils (Bld) [#/Vol] 0.0 10*3/uL Normal 0.0-0.5 [facility] Comment on above: Performed By: #### L [id number] ####Event Marketing Intern: NICOLE BOWERS ([phone])[facility])[address] [place] [address] Eosinophils/100 WBC (Bld) 0.2 % Normal 0.0-6.0 [facility] Comment on above: Performed By: #### L [id number] ####Event Marketing Intern: NICOLE BOWERS ([phone])[facility])[address] [place] [address] Erythrocyte distribution width (RBC) [Ratio] 13.2 % Normal 11.5-15.0 [facility] Comment on above: Performed By: #### L [id number] ####Event Marketing Intern: NICOLE BOWERS ([phone])[facility])[address] [place] [address] Hematocrit (Bld) [Volume fraction] 42.2 % Normal 40.0-52.0 [facility] Comment on above: Performed By: #### L [id number] ####Event Marketing Intern: NICOLE BOWERS ([phone])[facility])[address] [place] [address] Hemoglobin (Bld) [Mass/Vol] 14.0 g/dL Normal 13.0-18.0 [facility] Comment on above: Performed By: #### L [id number] ####Event Marketing Intern: NICOLE BOWERS ([phone])[facility])[address] [place] [address] IMMATURE GRANS % 0.2 % Normal 0.0-2.0 [facility] Comment on above: Performed By: #### L [id number] ####Event Marketing Intern: NICOLE BOWERS ([phone])[facility])[address] [place] [address] IMMATURE GRANS ABSOLUTE 0.0 10*3/uL Normal <0.1 [facility] Comment on above: Performed By: #### L [id number] ####Event Marketing Intern: NICOLE BOWERS ([phone])[facility])[address] [place] [address] Lymphocytes (Bld) [#/Vol] 2.7 10*3/uL Normal 1.0-4.3 [facility] Comment on above: Performed By: #### L [id number] ####Event Marketing Intern: NICOLE BOWERS ([phone])[facility])[address] [place] [address] Lymphocytes/100 WBC (Bld) 34.1 % Normal 15.0-45.0 [facility] Comment on above: Performed By: #### L [id number] ####Event Marketing Intern: NICOLE BOWERS ([phone])[facility])[address] [place] [address] MCH (RBC) [Entitic mass] 33.5 pg Normal 26.0-34.0 [facility] Comment on above: Performed By: #### L [id number] ####Event Marketing Intern: NICOLE [phone])[facility] ([facility])[address] [place] [address] MCHC 33.2 % Normal 30.5-36.0 [facility] Comment on above: Performed By: #### L [id number] ####Event Marketing Intern: NICOLE BOWERS ([phone])[facility] ([facility])[address] [place] [address] MCV (RBC) [Entitic vol] 101.0 fL High 77.0-99.0 [facility] Comment on above: Performed By: #### L [id number] ####Event Marketing Intern: NICOLE BOWERS ([phone])[facility] ([facility])[address] [place] [address] Monocytes (Bld) [#/Vol] 0.7 10*3/uL Normal 0.0-0.9 [facility] Comment on above: Performed By: #### L [id number] ####Event Marketing Intern: NICOLE BOWERS ([phone])[facility] ([facility])[address] [place] [address] Monocytes/100 WBC (Bld) 9.2 % Normal 5.0-13.0 [facility] Comment on above: Performed By: #### L [id number] ####Event Marketing Intern: NICOLE BOWERS ([phone])[facility] ([facility])[address] [place] [address] NEUTROPHILS ABSOLUTE 4.5 10*3/uL Normal 1.8-7.5 [facility] Comment on above: Performed By: #### L [id number] ####Event Marketing Intern: NICOLE BOWERS ([phone])[facility] ([facility])[address] [place] [address] Neutrophils/100 WBC (Bld) 55.8 % Normal 38.0-82.0 [facility] Comment on above: Performed By: #### L [id number] ####Event Marketing Intern: NICOLE BOWERS ([phone])[facility] ([facility])[address] [place] [address] NRBC 0.2 /100 WBCs Normal 0.0-2.0 [facility] Comment on above: Performed By: #### L [id number] ####Event Marketing Intern: NICOLE BOWERS ([phone])[facility])[address] [place] [address] Platelet mean volume (Bld) [Entitic vol] 10.5 fL Normal 9.0-12.7 [facility] Comment on above: Performed By: #### L [id number] ####Event Marketing Intern: NICOLE BOWERS ([phone])[facility] ([facility])[address] [place] [address] Platelets (Bld) [#/Vol] 263 10*3/uL Normal 140-440 [facility] Comment on above: Performed By: #### L [id number] ####Event Marketing Intern: NICOLE BOWERS ([phone])[facility])[address] [place] [address] RBC (Bld) [#/Vol] 4.18 10*6/uL Low 4.40-5.90 [facility] Comment on above: Performed By: #### L [id number] ####Event Marketing Intern: NICOLE BOWERS ([phone])[facility])[address] [place] [address] WBC (Bld) [#/Vol] 8.0 10*3/uL Normal 3.6-10.7 [facility] Comment on above: Performed By: #### L [id number] ####Event Marketing Intern: NICOLE BOWERS ([phone])[facility] ([facility])[address] [place] [address] COMPREHENSIVE METABOLIC PANE Ming 08-12-2024 Albumin [Mass/Vol] 2.8 g/dL Low 3.5-5.0 [facility] Comment on above: Performed By: #### L [id number] ####Event Marketing Intern: NICOLE BOWERS ([phone])[facility])[address] [place] [address] ALP [Catalytic activity/Vol] 225 U/L High 40-150 [facility] Comment on above: Performed By: #### L [id number] ####Event Marketing Intern: NICOLE BOWERS ([phone])[facility] ([facility])[address] [place] [address] ALT [Catalytic activity/Vol] 86 U/L High <40 [facility] Comment on above: Performed By: #### L [id number] ####Event Marketing Intern: NICOLE BOWERS ([phone])[facility] ([facility])[address] [place] [address] Anion gap [Moles/Vol] 11 mmol/L Normal 3-13 [facility] Comment on above: Performed By: #### L [id number] ####Event Marketing Intern: NICOLE BOWERS ([phone])[facility] ([facility])[address] [place] [address] AST [Catalytic activity/Vol] 47 U/L High <34 [facility] Comment on above: Performed By: #### L [id number] ####Event Marketing Intern: NICOLE BOWERS ([phone])[facility] ([facility])[address] [place] [address] Bilirubin [Mass/Vol] 2.0 mg/dL High <1.2 [facility] Comment on above: Performed By: #### L [id number] ####Event Marketing Intern: NICOLE BOWERS ([phone])[facility] ([facility])[address] [place] [address] Calcium [Mass/Vol] 8.2 mg/dL Low 8.4-10.2 [facility] Comment on above: Performed By: #### L [id number] ####Event Marketing Intern: NICOLE BOWERS ([phone])[facility] ([facility])[address] [place] [address] [place] Chloride [Moles/Vol] 106 mmol/L Normal 98-107 [facility] Comment on above: Performed By: #### L [id number] ####Event Marketing Intern: NICOLE BOWERS ([phone])[facility] ([facility])[address] [place] [address] CO2 [Moles/Vol] 19 mmol/L Low 22-29 [facility] Comment on above: Performed By: #### L [id number] ####Event Marketing Intern: NICOLE BOWERS ([phone])[facility])[address] [place] [address] Creatinine [Mass/Vol] 2.23 mg/dL High 0.72-1.25 [facility] Comment on above: Performed By: #### L [id number] ####Event Marketing Intern: NICOLE BOWERS ([phone])[facility])[address] [place] [address] GLOMERULAR FILTRATION RATE ML/MIN/1.73 SQ M.PREDICTED 35.9 mL/min/1.73m*2 Low >60.0 [facility] Comment on above: Result Comment: Calc ulation based on the Chronic Kidney Disease Epidemiology Collaboration (CKD-EPI) equation refit without adjustment for race Performed By: #### L [id number] ####Event Marketing Intern: NICOLE BOWERS ([phone])[facility] ([facility])[address] [place] [address] Glucose [Mass/Vol] 118 mg/dL High 74-100 [facility] Comment on above: Performed By: #### L AB17 ####Event Marketing Intern: NICOLE BOWERS ([phone])[facility])[address] [place] [address] Potassium [Moles/Vol] 4.3 mmol/L Normal 3.5-5.1 [facility] Comment on above: Result Comment: [facility] potassium values may be up to 0.5 mmol/L lower than serum values. Performed By: #### L AB17 ####Event Marketing Intern: NICOLE BOWERS ([phone])[facility] ([facility])[address] [place] [address] Protein [Mass/Vol] 5.5 g/dL Low 6.4-8.3 [facility] Comment on above: Performed By: #### L [id number] ####Event Marketing Intern: NICOLE BOWERS ([phone])[facility])[address] Sodium [Moles/Vol] 136 mmol/L Normal 136-145 [facility] Comment on above: Performed By: #### L [id number] ####Event Marketing Intern: INCOLE BOWERS ([phone])[facility] [place] [address] Urea nitrogen [Mass/Vol] 42 mg/dL High 8-21 [facility] Comment on above: Performed By: #### L [id number] ####Event Marketing Intern: NICOLE BOWERS ([phone])[facility] ([facility])[address] [place] [address] Comprehensive metabolic 1998 panelon 08-12-2024 Albumin [Mass/Vol] 2.8 g/dL Low 3.5 - 5.0 g/dL [facility] ALP [Catalytic activity/Vol] 225 U/L High 40 - 150 U/L [facility] ALT [Catalytic activity/Vol] 86 U/L High NINF - 40 U/L [facility] Anion gap [Moles/Vol] 11 mmol/L 3 - 13 mmol/L [facility] AST [Catalytic activity/Vol] 47 U/L High NINF - 34 U/L [facility] Bilirubin [Mass/Vol] 2 mg/dL High NINF - 1.2 mg/dL [facility] Calcium [Mass/Vol] 8.2 mg/dL Low 8.4 - 10. 2 mg/dL [facility] Chloride [Moles/Vol] 106 mmol/L 98 - 10 7 mmol/L [facility] CO2 [Moles/Vol] 19 mmol/L Low 22 - 29 mmol/L [facility] Creatinine [Mass/Vol] 2.23 mg/dL High 0.72 - 1.25 mg/dL [facility] GFR/1.73 sq M.predicted (S/P/Bld) [Vol rate/Area] 35.9 mL/min Low - PINF [facility] Glucose [Mass/Vol] 118 mg/dL High 74 - 100 mg/dL [facility] Interpretation and review of laboratory results Abnormal [facility] Potassium [Moles/Vol] 4.3 mmol/L 3.5 - 5.1 mmol/L [facility] Protein [Mass/Vol] 5.5 g/dL Low 6.4 - 8.3 g/dL [facility] Sodium [Moles/Vol] 136 mmol/L 136 - 145 mmol/L [facility] Urea nitrogen [Mass/Vol] 42 mg/dL High 8 - 21 mg/dL [facility] LACTIC ACID WITH REFLEXon Lactate [Moles/Vol] 2.1 mmol/L Normal 0.5-2.2 [facility] Comment on above: Performed By: #### L [id number] ####Event Marketing Intern: NICOLE BOWERS ([phone])[facility] ([facility])[address] [place] [address] Lactate [Moles/Vol] 2.4 mmol/L High 0.5-2.2 [facility] Comment on above: Performed By: #### L [id number] ####Event Marketing Intern: NICOLE BOWERS ([phone])[facility] ([facility])[address] [place] [address] Laboratory - Chemistry and C hemistry - challengeon 08-12-2024 Lactate [Moles/Vol] 2.1 mmol/L 0.5 - 2. 2 mmol/L [facility] Lactate [Moles/Vol] 2.4 mmol/L High 0.5 - 2. 2 mmol/L [facility] NT PRO BNPon 08-12-2024 Natriuretic peptide B (Bld) [Mass/Vol] 71079 pg/mL High <125 [facility] Comment on above: Performed By: #### L [id number] ####Event Marketing Intern: NICOLE BOWERS ([phone])[facility] ([facility])[address] [place] [address] Natriuretic peptide B [Mass/ Vol]on 08-12-2024 Interpretation and review of laboratory results Abnormal [facility] Natriuretic peptide B (Bld) [Mass/Vol] 32827 pg/mL High NINF - 125 pg/mL [facility] No Panel Informationon 08-12 Interpretation and review of laboratory results Normal [facility] Interpretation and review of laboratory results Abnormal [facility] Progress Noteon 08-12-2024 [facility] Progress Note Normal [facility] Telephone Encounteron 2024 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 Normal [facility] BLOOD GAS, VENOUSon 08-11-19 25 Base excess Calc (BldV) [Moles/Vol] -1.3000 mmol/L Normal -3.0-3.0 [facility] Comment on above: Performed By: #### L [id number] ####Event Marketing Intern: NICOLE BOWERS ([phone])[facility])[address] [place] [address] CO2 [Moles/Vol] 22.0 mmol/L Low 24.0-28.0 [facility] Comment on above: Performed By: #### L [id number] ####Event Marketing Intern: NICOLE BOWERS ([phone])[facility])[address] [place] [address] HCO3 (Bld) [Moles/Vol] 21.1 mmol/L Low 23.0-27.0 [facility] Comment on above: Performed By: #### L [id number] ####Event Marketing Intern: NICOLE BOWERS ([phone])[facility] ([facility])[address] [place] [address] Hemoglobin (Bld) [Mass/Vol] 15.0 g/dL Normal Screen only [facility] Comment on above: Performed By: #### L [id number] ####Event Marketing Intern: NICOLE BOWERS ([phone])[facility])[address] [place] [address] OXYGEN (MM HG) IN VENOUS BLOOD 120.8 mm Hg Normal [facility] Comment on above: Performed By: #### L [id number] ####Event Marketing Intern: NICOLE BOWERS ([phone])[facility])[address] [place] [address] OXYGEN SATURATION (%) IN VENOUS BLOOD 98.6 % Normal [facility] Comment on above: Performed By: #### L [id number] ####Event Marketing Intern: NICOLE BOWERS ([phone])[facility])[address] [place] [address] PCO2, JAZ 29.6 mm Hg Low 40.0-55.0 [facility] Comment on above: Performed By: #### L [id number] ####Event Marketing Intern: NICOLE BOWERS ([phone])[facility])[address] [place] [address] PH VENOUS 7.470 High 7.330-7.430 [facility] Comment on above: Performed By: #### L [id number] ####Event Marketing Intern: NICOLE BOWERS ([phone])[facility])[address] [place] [address] SOURCE OF OXYGEN Room Air Normal [facility] Comment on above: Result Comment: ALEJANDRO Aleman [...] heparinized syringe. Performed By: #### L [id number] ####Event Marketing Intern: NICOLE BOWERS ([phone])[facility] ([facility])[address] [place] [address] CBC W Auto Differential pane l (Bld)on 08-11-2024 Basophils (Bld) [#/Vol] 0 10*3/uL 0.0 - 0.2 10*3/uL [facility] Basophils/100 WBC (Bld) 0.4 % 0.0 - 2.0 % [facility] Eosinophils (Bld) [#/Vol] 0 10*3/uL 0.0 - 0.5 10*3/uL [facility] Eosinophils/100 WBC (Bld) 0.2 % 0.0 - 6.0 % [facility] Erythrocyte distribution width (RBC) [Ratio] 13 % 11.5 - 15.0 % [facility] Hematocrit (Bld) [Volume fraction] 42 % 40.0 - 52.0 % [facility] Hemoglobin (Bld) [Mass/Vol] 13.9 g/dL 13.0 - 18.0 g/dL [facility] Immature granulocytes (Bld) [#/Vol] 0 10*3/uL NINF - 0.1 10*3/uL [facility] Immature granulocytes/100 WBC (Bld) 0.2 % 0.0 - 2.0 % [facility] Interpretation and review of laboratory results Abnormal [facility] Lymphocytes (Bld) [#/Vol] 2.8 10*3/uL 1.0 - 4.3 10*3/uL [facility] Lymphocytes/100 WBC (Bld) 33.6 % 15.0 - 45.0 % [facility] MCH (RBC) [Entitic mass] 33.1 pg 26.0 - 34.0 pg [facility] MCHC (RBC) [Mass/Vol] 33.1 % 30.5 - 36.0 % [facility] MCV (RBC) [Entitic vol] 100 fL High 77.0 - 99.0 fL [facility] Monocytes (Bld) [#/Vol] 0.6 10*3/uL 0.0 - 0.9 10*3/uL [facility] Monocytes/100 WBC (Bld) 7.3 % 5.0 - 13.0 % [facility] Neutrophils (Bld) [#/Vol] 4.8 10*3/uL 1.8 - 7.5 10*3/uL [facility] Neutrophils/100 WBC (Bld) 58.3 % 38.0 - 82.0 % [facility] Nucleated RBC/100 WBC (Bld) [Ratio] 0 % [facility] Platelet mean volume (Bld) [Entitic vol] 10.3 fL 9.0 - 12.7 fL [facility] Platelets (Bld) [#/Vol] 243 10*3/uL 140 - 440 10*3/uL [facility] RBC (Bld) [#/Vol] 4.2 10*6/uL Low 4.40 - 5.9 0 10*6/uL [facility] WBC (Bld) [#/Vol] 8.2 10*3/uL 3.6 - 10.7 10*3/uL [facility] CBC WITH AUTO DIFFERENTIALon 08-11-2024 Basophils (Bld) [#/Vol] 0.0 10*3/uL Normal 0.0-0.2 [facility] Comment on above: Performed By: #### L [id number] ####Event Marketing Intern: NICOLE BOWERS ([phone])[facility])[address] [place] [address] Basophils/100 WBC (Bld) 0.4 % Normal 0.0-2.0 [facility] Comment on above: Performed By: #### L [id number] ####Event Marketing Intern: NICOLE BOWERS ([phone])[facility])[address] [place] [address] Eosinophils (Bld) [#/Vol] 0.0 10*3/uL Normal 0.0-0.5 [facility] Comment on above: Performed By: #### L [id number] ####Event Marketing Intern: NICOLE BOWERS ([phone])[facility])[address] [place] [address] Eosinophils/100 WBC (Bld) 0.2 % Normal 0.0-6.0 [facility] Comment on above: Performed By: #### L [id number] ####Event Marketing Intern: NICOLE BOWERS ([phone])[facility])[address] [place] [address] Erythrocyte distribution width (RBC) [Ratio] 13.0 % Normal 11.5-15.0 [facility] Comment on above: Performed By: #### L [id number] ####Event Marketing Intern: NICOLE BOWERS ([phone])[facility])[address] [place] [address] Hematocrit (Bld) [Volume fraction] 42.0 % Normal 40.0-52.0 [facility] Comment on above: Performed By: #### L [id number] ####Event Marketing Intern: NICOLE BOWERS ([phone])[facility])[address] [place] [address] Hemoglobin (Bld) [Mass/Vol] 13.9 g/dL Normal 13.0-18.0 [facility] Comment on above: Performed By: #### L [id number] ####Event Marketing Intern: NICLOE BOWERS ([phone])[facility])[address] [place] [address] IMMATURE GRANS % 0.2 % Normal 0.0-2.0 [facility] Comment on above: Performed By: #### L [id number] ####Event Marketing Intern: NICOLE BOWERS ([phone])[address] IMMATURE GRANS ABSOLUTE 0.0 10*3/uL Normal <0.1 [facility] Comment on above: Performed By: #### L [id number] ####Event Marketing Intern: NICOLE BOWERS ([phone])[facility])[address] [place] [address] Lymphocytes (Bld) [#/Vol] 2.8 10*3/uL Normal 1.0-4.3 [facility] Comment on above: Performed By: #### L [id number] ####Event Marketing Intern: NICOLE BOWERS ([phone])[facility])[address] [place] [address] Lymphocytes/100 WBC (Bld) 33.6 % Normal 15.0-45.0 [facility] Comment on above: Performed By: #### L [id number] ####Event Marketing Intern: NICOLE BOWERS ([phone])[facility])[address] [place] [address] MCH (RBC) [Entitic mass] 33.1 pg Normal 26.0-34.0 [facility] Comment on above: Performed By: #### L [id number] ####Event Marketing Intern: NICOLE BOWERS ([phone])[facility])[address] [place] [address] MCHC 33.1 % Normal 30.5-36.0 [facility] Comment on above: Performed By: #### L [id number] ####Event Marketing Intern: NICOLE BOWERS ([phone])[facility])[address] [place] [address] MCV (RBC) [Entitic vol] 100.0 fL High 77.0-99.0 [facility] Comment on above: Performed By: #### L [id number] ####Event Marketing Intern: NICOLE BOWERS ([phone])[facility] ([facility])[address] [place] [address] Monocytes (Bld) [#/Vol] 0.6 10*3/uL Normal 0.0-0.9 [facility] Comment on above: Performed By: #### L [id number] ####Event Marketing Intern: NICOLE BOWERS ([phone])[facility] ([facility])[address] [place] [address] Monocytes/100 WBC (Bld) 7.3 % Normal 5.0-13.0 [facility] Comment on above: Performed By: #### L [id number] ####Event Marketing Intern: NICOLE BOWERS ([phone])[facility])[address] [place] [address] NEUTROPHILS ABSOLUTE 4.8 10*3/uL Normal 1.8-7.5 [facility] Comment on above: Performed By: #### L [id number] ####Event Marketing Intern: NICOLE BOWERS ([phone])[facility])[address] [place] [address] Neutrophils/100 WBC (Bld) 58.3 % Normal 38.0-82.0 [facility] Comment on above: Performed By: #### L [id number] ####Event Marketing Intern: NICOLE BOWERS ([phone])[facility])[address] [place] [address] NRBC 0.0 /100 WBCs Normal 0.0-2.0 [facility] Comment on above: Performed By: #### L [id number] ####Event Marketing Intern: NICOLE BOWERS ([phone])[facility] ([facility])[address] [place] [address] Platelet mean volume (Bld) [Entitic vol] 10.3 fL Normal 9.0-12.7 [facility] Comment on above: Performed By: #### L [id number] ####Event Marketing Intern: NICOLE BOWERS ([phone])[facility] ([facility])[address] [place] [address] Platelets (Bld) [#/Vol] 243 10*3/uL Normal 140-440 [facility] Comment on above: Performed By: #### L [id number] ####Event Marketing Intern: NICOLE BOWERS ([phone])[facility] ([facility])[address] [place] [address] RBC (Bld) [#/Vol] 4.20 10*6/uL Low 4.40-5.90 [facility] Comment on above: Performed By: #### L [id number] ####Event Marketing Intern: NICOLE BOWERS ([id number])[facility])[address] [place] [address] WBC (Bld) [#/Vol] 8.2 10*3/uL Normal 3.6-10.7 [facility] Comment on above: Performed By: #### L [id number] ####Event Marketing Intern: NICOLE BOWERS ([phone])[facility] ([facility])[address] [place] [address] COMPLETE URINALYSISon 2024 BILIRUBIN, TOTAL PRESENCE IN URINE Negative Normal Negative [facility] Comment on above: Performed By: #### L [id number] ####Event Marketing Intern: NICOLE BOWERS ([phone])[facility])[address] [place] [address] Clarity (U) Clear Normal Clear [facility] Comment on above: Performed By: #### L [id number] ####Event Marketing Intern: NICOLE BOWERS ([phone])[facility] ([facility])[address] [place] [address] Color (U) Light Yellow Normal Lt. Yellow [facility] Comment on above: Performed By: #### L [id number] ####Event Marketing Intern: NICOLE BOWERS ([phone])[facility] ([facility])[address] [place] [address] GLUCOSE (MG/DL) IN URINE Normal Normal Normal (<70) [facility] Comment on above: Performed By: #### L [id number] ####Event Marketing Intern: NICOLE BOWERS ([phone])[facility] ([facility])[address] [place] [address] HEMOGLOBIN PRESENCE IN URINE Negative Normal Negative [facility] Comment on above: Performed By: #### L [id number] ####Event Marketing Intern: NICOLE BOWERS ([phone])[facility] ([facility])[address] [place] [address] Ketones Ql (U) Negative Normal Negative [facility] Comment on above: Performed By: #### L [id number] ####Event Marketing Intern: NICOLE BOWERS ([phone])[facility] ([facility])[address] [place] [address] LEUKOCYTE ESTERASE PRESENCE IN URINE BY TEST STRIP Negative Normal Negative [facility] Comment on above: Performed By: #### L [id number] ####Event Marketing Intern: NICOLE BOWERS ([phone])[facility] ([facility])[address] [place] [address] NITRITE PRESENCE IN URINE Negative Normal Negative [facility] Comment on above: Performed By: #### L [id number] ####Event Marketing Intern: NICOLE BOWERS ([phone])[facility] ([facility])[address] [place] [address] pH (U) 5.0 [pH] Normal 5.0-8.0 [facility] Comment on above: Performed By: #### L [id number] ####Event Marketing Intern: NICOLE BOEWRS ([phone])[facility] ([facility])[address] [place] [address] Protein (U) [Mass/Vol] Negative Normal Negative [facility] Comment on above: Performed By: #### L [id number] ####Event Marketing Intern: NICOLE BOWERS ([phone])[facility])[address] [place] [address] Specific gravity (U) [Rel density] 1.007 Normal 1.005-1.030 [facility] Comment on above: Performed By: #### L [id number] ####Event Marketing Intern: NICOLE BOWERS ([phone])[facility] ([facility])[address] [place] [address] UROBILINOGEN (MG/DL) IN URINE Normal Normal Normal (0-1) [facility] Comment on above: Performed By: #### L [id number] ####Event Marketing Intern: NICOLE BOWERS ([phone])[facility] ([facility])[address] [place] [address] COMPREHENSIVE METABOLIC PANE Ming 08-11-2024 Albumin [Mass/Vol] 3.0 g/dL Low 3.5-5.0 [facility] Comment on above: Performed By: #### L [id number], [id number] ####Event Marketing Intern: NICOLE BOWERS ([phone])[facility] ([facility])[address] [place] [address] ALP [Catalytic activity/Vol] 201 U/L High 40-150 [facility] Comment on above: Performed By: #### L [id number], LAB17 ####Event Marketing Intern: NICOLE BOWERS ([phone])[facility] ([facility])[address] [place] [address] ALT [Catalytic activity/Vol] 86 U/L High <40 [facility] Comment on above: Performed By: #### L [id number], LAB17 ####Event Marketing Intern: NICOLE BOWERS ([phone])[facility])[address] [place] [address] Anion gap [Moles/Vol] 10 mmol/L Normal 3-13 [facility] Comment on above: Performed By: #### L [id number], LAB17 ####Event Marketing Intern: NICOLE BOWERS ([phone])[facility] ([facility])[address] [place] [address] AST [Catalytic activity/Vol] 47 U/L High <34 [facility] Comment on above: Performed By: #### L [id number], LAB17 ####Event Marketing Intern: NICOLE BOWERS ([phone])[facility] ([facility])[address] [place] [address] Bilirubin [Mass/Vol] 2.6 mg/dL High <1.2 [facility] Comment on above: Performed By: #### L [id number], [id number] ####Event Marketing Intern: NICOLE BOWERS ([phone])[facility] ([facility])[address] [place] [address] Calcium [Mass/Vol] 8.4 mg/dL Normal 8.4-10.2 [facility] Comment on above: Performed By: #### L [id number], [id number] ####Event Marketing Intern: NICOLE BOWERS ([phone])[facility] ([facility])[address] [place] [address] [place] Chloride [Moles/Vol] 102 mmol/L Normal 98-107 [facility] Comment on above: Performed By: #### L [id number], LAB17 ####Event Marketing Intern: NICOLE BOWERS ([phone])[facility] ([facility])[address] [place] [address] [place] CO2 [Moles/Vol] 18 mmol/L Low 22-29 [facility] Comment on above: Performed By: #### L [id number], LAB17 ####Event Marketing Intern: NICOLE BOWERS ([phone])[facility] ([facility])[address] [place] [address] Creatinine [Mass/Vol] 1.80 mg/dL High 0.72-1.25 [facility] Comment on above: Performed By: #### L [id number], LAB17 ####Event Marketing Intern: NICOLE [phone])[facility] ([facility])[address] [place] [address] [place] GLOMERULAR FILTRATION RATE ML/MIN/1.73 SQ M.PREDICTED 46.4 mL/min/1.73m*2 Low >60.0 [facility] Comment on above: Result Comment: Calc ulation based on the Chronic Kidney Disease Epidemiology Collaboration (CKD-EPI) equation refit without adjustment for race Performed By: #### L [id number], [id number] ####Event Marketing Intern: NICOLE BOWERS ([phone])[facility] ([facility])[address] [place] [address] Glucose [Mass/Vol] 94 mg/dL Normal 74-100 [facility] Comment on above: Performed By: #### L [id number], [id number] ####Event Marketing Intern: NICOLE BOWERS ([phone])[facility])[address] [place] [address] [place] Potassium [Moles/Vol] 4.0 mmol/L Normal 3.5-5.1 [facility] Comment on above: Result Comment: [facility] potassium values may be up to 0.5 mmol/L lower than serum values. Performed By: #### L [id number], LAB17 ####Event Marketing Intern: NICOLE BOWERS ([phone])[facility] ([facility])[address] [place] [address] [place] Protein [Mass/Vol] 5.6 g/dL Low 6.4-8.3 [facility] Comment on above: Performed By: #### L [id number], [id number] ####Event Marketing Intern: NICOLE BOWERS ([phone])[facility] ([facility])[address] [place] [address] [place] Sodium [Moles/Vol] 130 mmol/L Low 136-145 [facility] Comment on above: Performed By: #### L [id number], LAB17 ####Event Marketing Intern: NICOLE BOWERS ([phone])[facility])[address] [place] [address] [place] Urea nitrogen [Mass/Vol] 39 mg/dL High 8-21 [facility] Comment on above: Performed By: #### L [id number], LAB17 ####Event Marketing Intern: NICOLE BOWERS ([phone])[facility] ([address] Comprehensive metabolic 1998 panelOrdered By: Eugene Rwoan on 08-11-2024 Albumin [Mass/Vol] 3 g/dL Low 3.5 - 5.0 g/dL [facility] ALP [Catalytic activity/Vol] 201 U/L High 40 - 150 U/L [facility] ALT [Catalytic activity/Vol] 86 U/L High NINF - 40 U/L [facility] Anion gap [Moles/Vol] 10 mmol/L 3 - 13 mmol/L [facility] AST [Catalytic activity/Vol] 47 U/L High NINF - 34 U/L [facility] Bilirubin [Mass/Vol] 2.6 mg/dL High NINF - 1.2 mg/dL [facility] Calcium [Mass/Vol] 8.4 mg/dL 8.4 - 10. 2 mg/dL [facility] Chloride [Moles/Vol] 102 mmol/L 98 - 10 7 mmol/L [facility] CO2 [Moles/Vol] 18 mmol/L Low 22 - 29 mmol/L [facility] Creatinine [Mass/Vol] 1.8 mg/dL High 0.72 - 1.25 mg/dL [facility] GFR/1.73 sq M.predicted (S/P/Bld) [Vol rate/Area] 46.4 mL/min Low - PINF [facility] Glucose [Mass/Vol] 94 mg/dL 74 - 100 mg/dL [facility] Interpretation and review of laboratory results Abnormal [facility] Potassium [Moles/Vol] 4 mmol/L 3.5 - 5.1 mmol/L [facility] Protein [Mass/Vol] 5.6 g/dL Low 6.4 - 8.3 g/dL [facility] Sodium [Moles/Vol] 130 mmol/L Low 136 - 145 mmol/L [facility] Urea nitrogen [Mass/Vol] 39 mg/dL High 8 - 21 mg/dL [facility] Consulton 08-11-2024 Consult Normal [facility] Consult Normal [facility] DRUGS OF ABUSEon 08-11-2024 AMPHETAMINE SCREEN Negative Normal [facility] Comment on above: Performed By: #### L [id number] ####Event Marketing Intern: NICOLE BOWERS ([phone])[facility])[address] [place] [address] BARBITURATES SCREEN Negative Normal [facility] Comment on above: Performed By: #### L [id number] ####Event Marketing Intern: NICOLE BOWERS ([id number])[facility])[address] [place] [address] BENZODIAZEPINE SCREEN Negative Normal [facility] Comment on above: Performed By: #### L [id number] ####Event Marketing Intern: NICOLE BOWERS ([id number])[facility])[address] [place] [address] COCAINE METAB. SCREEN Negative Normal [facility] Comment on above: Performed By: #### L [id number] ####Event Marketing Intern: NICOLE BOWERS ([phone])[address] FENT[place] SCREEN, UR QUAL Negative Normal [facility] Comment on above: Result Comment: [...] under separate order. Performed By: #### L [id number] ####Event Marketing Intern: NICOLE BOWERS ([phone])[facility] ([facility])[address] [place] [address] METHADONE SCREEN Negative Normal [facility] Comment on above: Performed By: #### L [id number] ####Event Marketing Intern: NICOLE BOWERS ([id number])[facility] ([facility])[address] [place] [address] OPIATES SCREEN Positive Normal [facility] Comment on above: Performed By: #### L [id number] ####Event Marketing Intern: NICOLE BOWERS ([phone])[facility])[address] [place] [address] OXYCODONE SCREEN Negative Normal [facility] Comment on above: Performed By: #### L [id number] ####Event Marketing Intern: NICOLE BOWERS ([id number])[facility])[address] [place] [address] PHENCYCLIDINE SCREEN Negative Normal [facility] Comment on above: Performed By: #### L [id number] ####Event Marketing Intern: NICOLE BOWERS ([id number])[address] ECG 12-LEADon 08-11-2024 ECG 12-LEAD IMPRESSION: Sinus tachycardia Left atrial enlargement IVCD, CONSIDER ATYPICAL LBBB Electronically Signed On 08-11-2024 12:27:06 EST by Angel Luis Morales Normal [facility] HIGH SENSITIVITY TROPONIN, S HENRYIAL, SECOND TESTon 08-11-2024 2H TROPONIN HS (SERIAL 2ND TROPONIN) 22 ng/L Normal <=35 [facility] Comment on above: Result Comment: 2h t roponin (2nd troponin) samples collected between 1h 40 min and 2h and 20 min of the baseline collection time can be utilized to interpret delta troponins as per [facility] algorithms. Samples collected outside this timeframe need to be interpreted clinically. Performed By: #### L [id number], [id number] ####Event Marketing Intern: NICOLE BOWERS ([id number])[facility])[address] [place] [address] Laboratory - Chemistry and C hemistry - challengeOrdered By: Michelle Aguilar on 08-11-2024 Base excess Calc (BldV) [Moles/Vol] -1.3000 mmol/L -3.0 - 3.0 mmol/L [facility] CO2 (BldV) [Partial pressure] 29.6 mm[Hg] Low [facility] CO2 [Moles/Vol] 22 mmol/L Low 24.0 - 28.0 mmol/L [facility] HCO3 (Bld) [Moles/Vol] 21.1 mmol/L Low 23.0 - 27.0 mmol/L [facility] Oxygen (BldV) [Partial pressure] 120.8 mm[Hg] mm Hg [facility] pH (BldV) 7.47 [pH] High 7.330 - 7.430 [facility] h Laboratory - Coagulationon 0 08-11-2024 aPTT Coag (PPP) [Time] 26.8 s 20.0 - 30.5 s [facility] INR Coag (PPP) [Relative time] 1.4 {INR} High 0.9 - 1.1 [facility] PT Coag (Bld) [Time] 15.7 s High 9.0 - 12.0 s [facility] - Drug toxicology on 08-11-2024 Amphetamines Screen method >1000 ng/mL Ql (U) Negative [facility] Barbiturates Screen method >200 ng/mL Ql (U) Negative [facility] Benzodiazepines Ql (U) Negative [facility] Methadone Screen Ql (U) Negative [facility] Opiates Screen Ql (U) Positive [facility] oxyCODONE Ql (U) Negative [facility] alth Phencyclidine Ql (U) Negative [facility] Laboratory - Hematology and Cell countsOrdered By: Michelle Aguilar on 08-11-2024 Hemoglobin (Bld) [Mass/Vol] 15 g/dL Screen only [facility] No Panel Informationon 08-11 COCAINE METAB. SCREEN Negative [facility] FENTANYL SCREEN, UR QUAL Negative [facility] P [place] 70 degrees [facility] NM Interval 144 ms [facility] QRS [place] 158 degrees [facility] QRSD Interval 153 ms [facility] QT Interval 400 ms [facility] QTC Interval 536 ms [facility] T Wave [place] -5 degrees [facility] CV EPIPHANY [facility] Interpretation and review of laboratory results Abnormal [facility] 2h Troponin HS (Serial 2nd Troponin) 22 ng/L NINF - 35 ng/L [facility] Interpretation and review of laboratory results Normal [facility] No Panel InformationOrdered By: Michelle Aguilar on 08-11-2024 Interpretation and review of laboratory results Abnormal [facility] Source Of Oxygen Room Air Pam Dennis alth [facility] PROTIME AND APTTon aPTT Coag (Bld) [Time] 26.8 s Normal 20.0-30.5 [facility] Comment on above: Performed By: #### L [id number] ####Event Marketing Intern: NICOLE BOWERS ([id number])[facility] ([facility])[address] [place] [address] INR Coag (PPP) [Relative time] 1.4 {INR} High 0.9-1.1 [facility] Comment on above: Result Comment: Wili mmended [...] prevent Myocardial Infarction Performed By: #### L [id number] ####Event Marketing Intern: NICOLE BOWERS ([id number])[facility] ([facility])[address] [place] [address] PT Coag (PPP) [Time] 15.7 s High 9.0-12.0 [facility] Comment on above: Performed By: #### L [id number] ####Event Marketing Intern: NICOLE BOWERS ([id number])[facility] ([facility])[address] [place] [address] Progress Noteon 08-11-2024 Progress Note Normal [facility] Progress Note .Nutrition rescreen completed. Chart reviewed. Patient to be monitored and followed by the diet furniture technician. PAO Hairston Normal [facility] Progress Note Normal [facility] Progress Note Normal [facility] Progress Note Normal [facility] US Heart TransthoracicOrdere d By: Ana Singletary on 08-11-2024 Ao Root Index 1.44 cm/m2 [facility] Healt h Work Phone: Aortic Root 2.9 cm [facility] Health Work Phone: Aortic valve Mean systole pressure gradient by US.doppler derived full Bernoulli 1 mmHg [facility] Work Phone: [phone] Aortic valve Orifice area by US 2.8 cm2 [facility] Health Work Phone: [phone] Aortic valve Peak systolic flow by US.doppler 0.5 m/s [facility] Health Work Phone: [phone] Ascending [facility]orta 3.2 cm [facility] Work Phone: Ascending Aorta Index 1.58 cm/m2 [facility] Work Phone: [phone] AV Area by Peak Velocity 2.4 cm2 [facility] Health Work Phone: [phone] AV Area by VTI 2 cm2 [facility] Heal Work Phone: AV Peak Gradient 2 mmHg [facility] He alth Work Phone: [phone] AV Peak Velocity 0.7 m/s [facility] Work Phone: AV Velocity Ratio 0.86 [facility] H ealth Work Phone: [phone] AV VTI 9.5 cm [facility] Health Work Phone: [phone] EMILY/BSA Peak Velocity 1.2 cm2/m2 [facility] Work Phone: [phone] EIMLY/BSA VTI 1 cm2/m2 [facility] Health Work Phone: [phone] E/E' Lateral 8.14 [facility] Work Phone: [phone] E/E' Ratio (Averaged) 9.77 [facility] Work Phone: [phone] E/E' Septal 11.4 [facility] Health Work Phone: [phone] Est. RA Pressure 15 mmHg [facility] alth Work Phone: [phone] Fractional Shortening 2D 15 % 28 - 44 % [facility] Work Phone: Global Longitudinal Strain -4.1 % [facility] Work Phone: Interpretation and review of laboratory results Abnormal [facility] Work Phone: IVC Diameter 3.2 cm [facility] Work Phone: IVSd 0.7 cm 0.6 - 1.0 cm [facility] Work Phone: LA Diameter 4.8 cm [facility] Work Phone: LA Size Index 2.38 cm/m2 [facility] [employer] Work Phone: LA Volume 2C 173 mL Abnormal 18 - 58 mL [facility] Work Phone: LA Volume 4C 111 mL Abnormal 18 - 58 mL [facility] Work Phone: LA Volume A/L 152 mL [facility] Work Phone: LA Volume BP 146 mL Abnormal 18 - 58 mL [facility] Work Phone: LA Volume Index 2C 86 mL/m2 Abnormal 16 - 34 mL/m2 [facility] Work Phone: LA Volume Index 4C 55 mL/m2 Abnormal 16 - 34 mL/m2 [facility] Work Phone: LA Volume Index A/L 75 mL/m2 16 - 34 mL/m2 [facility] Work Phone: LA Volume Index BP 72 ml/m2 Abnormal 16 - 34 ml/m2 [facility] Work Phone: LA/AO Root Ratio 1.66 [facility] Work Phone: Left ventricular Ejection fraction by US.2D+Calculated by biplane method of disks 18 % Abnormal 55 - 100 % [facility] Work Phone: LV E' Lateral Velocity 7 cm/s [facility] Work Phone: LV E' Septal Velocity 5 cm/s [facility] Work Phone: LV EDV A2C 210 mL [facility] Work Phone: LV EDV A4C 150 mL [facility] Work Phone: LV EDV BP 182 mL Abnormal 67 - 155 mL [facility] Work Phone: [phone] LV EDV Index A2C 104 mL/m2 [facility] Work Phone: LV EDV Index A4C 74 mL/m2 [facility] Work Phone: LV EDV Index BP 90 mL/m2 [facility] Work Phone: LV Ejection Fraction A2C 23 % [facility] Work Phone: LV Ejection Fraction A4C 14 % [facility] Work Phone: LV ESV A2C 162 mL [facility] Work Phone: LV ESV A4C 129 mL [facility] Work Phone: LV ESV BP 149 mL Abnormal 22 - 58 mL [facility] Work Phone: LV ESV Index A2C 80 mL/m2 [facility] Work Phone: LV ESV Index A4C 64 mL/m2 [facility] Work Phone: LV ESV Index BP 74 mL/m2 [facility]a [facility] Work Phone: LV Mass 2D 198.1 g 88 - 224 g [facility] Work Phone: LV Mass 2D Index 98.1 g/m2 49 - 115 g/m2 [facility] Work Phone: LV RWT Ratio 0.25 [facility] Work Phone: [phone] LVIDd 6.5 cm Abnormal 4.2 - 5.9 cm [facility] Work Phone: LVIDd Index 3.22 cm/m2 [facility] Work Phone: LVIDs 5.5 cm [facility] Work Phone: LVIDs Index 2.72 cm/m2 [facility] Work Phone: LVOT Cardiac Output 1.8 liter/minute [facility] Work Phone: LVOT Diameter 1.9 cm [facility] Healt h Work Phone: LVOT Mean Gradient 1 mmHg [facility] Work Phone: [phone] LVOT Peak Gradient 1 mmHg [facility] Work Phone: LVOT Peak Velocity 0.6 m/s [facility] Work Phone: LVOT Stroke Volume Index 9.1 mL/m2 [facility] Work Phone: [phone] LVOT SV 18.4 ml [facility] Work Phone: LVOT VTI 6.5 cm [facility] Work Phone: LVOT:AV VTI Index 0.68 [facility] [employer] Work Phone: LVPWd 0.8 cm 0.6 - 1.0 cm [facility] Work Phone: [phone] MR VTI 118.3 cm [facility] Work Phone: [phone] MV A Velocity 0.47 m/s [facility] Work Phone: MV E Velocity 0.57 m/s [facility] Work Phone: MV E Wave Deceleration Time 128.5 ms [facility] Work Phone: MV E/A 1.21 [facility] Work Phone: [phone] MV Nyquist Velocity 48 cm/s [facility] Work Phone: MV Regurg Velocity PISA 3.6 m/s [facility] Work Phone: RA Area 4C 161 mL [facility] Work Phone: RV Basal Dimension 6.2 cm [facility] Work Phone: RV Free Wall Peak S' 13 cm/s [facility] Work Phone: RV Longitudinal Dimension 8.2 cm [facility] Work Phone: RV Mid Dimension 3.[address] [facility] Work Phone: RVSP 27 mmHg [facility] Work Phone: TAPSE 1.8 cm 1.7 cm [facility] Work Phone: TR Max Velocity 1.7 m/s [facility] Work Phone: TR Peak Gradient 12 mmHg [facility] Work Phone: TV Nyquist Velocity 48 cm/s [facility] Work Phone: [facility] Work Phone: US Heart Transthoracicon CV CPACS Urinalysis complete panel (U )on 08-11-2024 Bilirubin Ql (U) Negative Negative mg/dL [facility] Clarity (U) Clear Clear [facility] Color (U) Light Yellow Lt. Yellow [facility] Glucose Ql (U) Normal Normal (<70) mg/dL [facility] Hemoglobin Ql (U) Negative Negative mg/dL [facility] Interpretation and review of laboratory results Normal [facility] Ketones (U) [Mass/Vol] Negative Negat dai mg/dL [facility] Leukocyte esterase Test strip Ql (U) Negative Negative Nicky/uL [facility] Nitrite Ql (U) Negative Negative [facility] th pH (U) 5.0 [pH] 5.0 - 8.0 pH [facility] Protein (U) [Mass/Vol] Negative Negat dai mg/dL [facility] Specific gravity (U) [Rel density] 1.007 1.005 - 1.030 [facility] Urobilinogen (U) [Mass/Vol] Normal Normal (0-1) mg/dL [facility] Vital signson 08-11-2024 Heart rate 108 /min bpm [facility] Vital signsOrdered By: Kavitha Aguilar on 08-11-2024 Oxygen saturation in Venous blood 98.6 % [facility] XR CHEST 1 VIEWon 08-11-2024 XR CHEST 1 VIEW Normal [facility] XR Chest Single viewon 08-11 [facility] Radiology Study observation (narrative) [facility] XR Chest Single viewOrdered By: Blanche Doyle on 08-11-2024 [facility] Work Phone: 30on 08-10-2024 30 Normal [facility] ED Nursing Noteon 08-10-2024 ED Nursing Note Report called to 5W Normal [facility] ED Nursing Note Pt ambulatory to bathroom with steady gait. Normal [facility] ED Nursing Note Pt reuestning meds for pain and nausea Normal [facility] ED Nursing Note Pt expressing frustration of continued wait time. Ice chips are provided per request Normal [facility] ED Nursing Note [facility] contacted for update. Pt aware of continued wait time for bed assignment. No other requests at present time. Normal [facility] ED Nursing Note Pt declines four eyes skin check for admission Normal [facility] ED Nursing Note PO fluids and light meal provided. Pt updated and aware of continued wait time for bed assignment. Normal [facility] ED Nursing Note Pt has oxygen remove d and sats have been maintained at 97-100% on room air. Will continue to monitor. Normal [facility] ED Nursing Note This nurse returned to room, No urine in urinal or bedside commode, no bm in bedside commode noted. A wipe was in bedside commode. Commode emptied. Patients cardiac monitoring and bp cuff that patient removed was replaced. Normal [facility] ED Nursing Note Normal [facility] ED Nursing Note Notified physician patients spo2 decreasing and blood pressures soft 2L o2 initiated Normal [facility] ED Nursing Note Physician aware unable to collect 2nd trop Normal [facility] Laboratory - Chemistry and C hemistry - challengeon 08-10-2024 Magnesium [Mass/Vol] 2 mg/dL 1.6 - 2 .6 mg/dL [facility] Magnesium [Mass/Vol]on 08-10 [facility] No Panel Informationon 08-10 Interpretation and review of laboratory results Normal [facility] Phosphate [Moles/Vol]on 07-31 Phosphate [Mass/Vol] 4.1 mg/dL 2.3 - 4 .7 mg/dL [facility] US Kidneyon 08-10-2024 [facility] Radiology Study observation (narrative) [facility] KidneyOrdered By: Nir Shen on 08-10-2024 [facility] Work Phone: US RENAL COMPLETEon 08-10-19 25 US RENAL COMPLETE Normal [facility] CBC W Auto Differential pane l (Bld)on 08-09-2024 Basophils (Bld) [#/Vol] 0 10*3/uL 0.0 - 0.2 10*3/uL [facility] Basophils/100 WBC (Bld) 0.3 % 0.0 - 2.0 % [facility] Eosinophils (Bld) [#/Vol] 0 10*3/uL 0.0 - 0.5 10*3/uL [facility] Eosinophils/100 WBC (Bld) 0.3 % 0.0 - 6.0 % [facility] Erythrocyte distribution width (RBC) [Ratio] 13.2 % 11.5 - 15.0 % [facility] Hematocrit (Bld) [Volume fraction] 42.8 % 40.0 - 52.0 % [facility] Hemoglobin (Bld) [Mass/Vol] 14.2 g/dL 13.0 - 18.0 g/dL [facility] Immature granulocytes (Bld) [#/Vol] 0 10*3/uL NINF - 0.1 10*3/uL [facility] Immature granulocytes/100 WBC (Bld) 0.2 % 0.0 - 2.0 % [facility] Interpretation and review of laboratory results Abnormal [facility] Lymphocytes (Bld) [#/Vol] 3.1 10*3/uL 1.0 - 4.3 10*3/uL [facility] Lymphocytes/100 WBC (Bld) 35.6 % 15.0 - 45.0 % [facility] MCH (RBC) [Entitic mass] 33.7 pg 26.0 - 34.0 pg [facility] MCHC (RBC) [Mass/Vol] 33.2 % 30.5 - 36.0 % [facility] MCV (RBC) [Entitic vol] 101.7 fL High 77.0 - 99.0 fL [facility] Monocytes (Bld) [#/Vol] 0.6 10*3/uL 0.0 - 0.9 10*3/uL [facility] Monocytes/100 WBC (Bld) 6.5 % 5.0 - 13.0 % [facility] Neutrophils (Bld) [#/Vol] 5 10*3/uL 1.8 - 7.5 10*3/uL [facility] Neutrophils/100 WBC (Bld) 57.1 % 38.0 - 82.0 % [facility] Nucleated RBC/100 WBC (Bld) [Ratio] 0 % [facility] Platelet mean volume (Bld) [Entitic vol] 9.9 fL 9.0 - 12.7 fL [facility] Platelets (Bld) [#/Vol] 245 10*3/uL 140 - 440 10*3/uL [facility] RBC (Bld) [#/Vol] 4.21 10*6/uL Low 4.40 - 5.9 0 10*6/uL [facility] WBC (Bld) [#/Vol] 8.8 10*3/uL 3.6 - 10.7 10*3/uL [facility] CBC WITH AUTO DIFFERENTIALon 08-09-2024 Basophils (Bld) [#/Vol] 0.0 10*3/uL Normal 0.0-0.2 [facility] Comment on above: Performed By: #### L [id number] ####Event Marketing Intern: NICOLE BOWERS ([id number])[facility] (SWRL[facility])[address] [place] [address] [place] Basophils/100 WBC (Bld) 0.3 % Normal 0.0-2.0 [facility] Comment on above: Performed By: #### L [id number] ####Event Marketing Intern: NICOLE BOWERS ([id number])[facility]AL[facility]TMAN (SWRL[facility])[address] [place] [address] [place] Eosinophils (Bld) [#/Vol] 0.0 10*3/uL Normal 0.0-0.5 [facility] Comment on above: Performed By: #### L [id number] ####Event Marketing Intern: NICOLE BOWERS ([id number])[facility]AL[facility]TM[facility] (SWRL[facility])[address] [place] [address] [place] Eosinophils/100 WBC (Bld) 0.3 % Normal 0.0-6.0 [facility] Comment on above: Performed By: #### L [id number] ####Event Marketing Intern: NICOLE BOWERS ([id number])PAM MARI RITTMAN (SWRL[employer])[address] [place] [address] Erythrocyte distribution width (RBC) [Ratio] 13.2 % Normal 11.5-15.0 [facility] Comment on above: Performed By: #### L [id number] ####Event Marketing Intern: NICOLE BOWERS ([id number])[facility] MARI RITTMAN (SWRLAB)[address] [place] [address] Hematocrit (Bld) [Volume fraction] 42.8 % Normal 40.0-52.0 [facility] Comment on above: Performed By: #### L [id number] ####Event Marketing Intern: NICOLE BOWERS ([phone])[facility] MARI [facility]ITTMAN (SWRLAB)[address] [place] [address] Hemoglobin (Bld) [Mass/Vol] 14.2 g/dL Normal 13.0-18.0 [facility] Comment on above: Performed By: #### L [id number] ####Event Marketing Intern: NICOLE BOWERS ([phone])[facility] MARI RITTMAN (SWRLAB)[address] [place] [address] IMMATURE GRANS % 0.2 % Normal 0.0-2.0 [facility] Comment on above: Performed By: #### L [id number] ####Event Marketing Intern: NICOLE BOWERS ([phone])[facility] MARI [facility]ITTM[facility] (SWRLAB)[address] [place] [address] IMMATURE GRANS ABSOLUTE 0.0 10*3/uL Normal <0.1 [facility] Comment on above: Performed By: #### L [id number] ####Event Marketing Intern: NICOLE BOWERS ([phone])[facility] MARI [facility]ITTM[facility] (SWRLAB)[address] [place] [address] Lymphocytes (Bld) [#/Vol] 3.1 10*3/uL Normal 1.0-4.3 [facility] Comment on above: Performed By: #### L [id number] ####Event Marketing Intern: NICOLE BOWERS ([phone])[facility]I [facility] (SWRLAB)[address] [place] [address] Lymphocytes/100 WBC (Bld) 35.6 % Normal 15.0-45.0 [facility] Comment on above: Performed By: #### L [id number] ####Event Marketing Intern: NICOLE BOWERS ([phone])[facility] MARI [facility]ITTM[facility] (SWRLAB)[address] [place] [address] MCH (RBC) [Entitic mass] 33.7 pg Normal 26.0-34.0 [facility] Comment on above: Performed By: #### L [id number] ####Event Marketing Intern: NICOLE BOWERS ([phone])[facility] MARI [facility]ITTM[facility] (SWRLAB)[address] [place] [address] MCHC 33.2 % Normal 30.5-36.0 [facility] Comment on above: Performed By: #### L [id number] ####Event Marketing Intern: NICOLE BOWERS ([phone])[facility] MARI RITTM[facility] (SWRLAB)[address] [place] [address] MCV (RBC) [Entitic vol] 101.7 fL High 77.0-99.0 [facility] Comment on above: Performed By: #### L [id number] ####Event Marketing Intern: NICOLE BOWERS ([phone])[facility] MARI RITTMAN (SWRLAB)[address] [place] [address] [place] Monocytes (Bld) [#/Vol] 0.6 10*3/uL Normal 0.0-0.9 [facility] Comment on above: Performed By: #### L [id number] ####Event Marketing Intern: NICOLE BOWERS ([phone])[facility] MARI RITTM[facility] (SWRLAB)[address] [place] [address] [place] Monocytes/100 WBC (Bld) 6.5 % Normal 5.0-13.0 [facility] Comment on above: Performed By: #### L [id number] ####Event Marketing Intern: NICOLE BOWERS ([phone])[facility] MARI RITTM[facility] (SWRLAB)[address] [place] [address] NEUTROPHILS ABSOLUTE 5.0 10*3/uL Normal 1.8-7.5 [facility] Comment on above: Performed By: #### L [id number] ####Event Marketing Intern: NICOLE BOWERS ([phone])[facility] MARI RITTM[facility] (SWRLAB)[address] [place] [address] Neutrophils/100 WBC (Bld) 57.1 % Normal 38.0-82.0 [facility] Comment on above: Performed By: #### L [id number] ####Event Marketing Intern: NICOLE BOWERS ([phone])[facility] MARI RITTM[facility] (SWRLAB)[address] [place] [address] NRBC 0.0 /100 WBCs Normal 0.0-2.0 [facility] Comment on above: Performed By: #### L [id number] ####Event Marketing Intern: NICOLE BOWERS ([phone])[facility] MARI RITTM[facility] (SWRLAB)[address] [place] [address] Platelet mean volume (Bld) [Entitic vol] 9.9 fL Normal 9.0-12.7 [facility] Comment on above: Result Comment: MPV is a calculated measurement using platelet volume ratio Performed By: #### L [id number] ####Event Marketing Intern: NICOLE BOWERS ([phone])[facility] MARI RITTMAN (SWRLAB)[address] [place] [address] Platelets (Bld) [#/Vol] 245 10*3/uL Normal 140-440 [facility] Comment on above: Performed By: #### L [id number] ####Event Marketing Intern: NICOLE BOWERS ([phone])[facility] MARI RITTMAN (SWRLAB)[address] RBC (Bld) [#/Vol] 4.21 10*6/uL Low 4.40-5.90 [facility] Comment on above: Performed By: #### L [id number] ####Event Marketing Intern: NICOLE BOWERS ([id number])[facility] MARI RITTMAN (SWRLAB)[address] WBC (Bld) [#/Vol] 8.8 10*3/uL Normal 3.6-10.7 [facility] Comment on above: Performed By: #### L [id number] ####Event Marketing Intern: NICOLE BOWERS ([phone])[facility] MARI RITTMAN (SWRLAB)[address] [place] [address] COMPREHENSIVE METABOLIC PANE Ming 08-09-2024 Albumin [Mass/Vol] 3.4 g/dL Low 3.5-5.0 [facility] Comment on above: Performed By: #### L AB113, [id number], [id number], LAB17, VXM163, LAB99 ####Event Marketing Intern: NICOLE BOWERS ([phone])[facility] MARI RITTMAN (SWRLAB)[address] [place] [address] ALP [Catalytic activity/Vol] 194 U/L High 40-150 [facility] Comment on above: Performed By: #### L AB113, [id number], [id number], LAB17, JVQ615, LAB99 ####Event Marketing Intern: NICOLE BOWERS ([phone])[facility] MARI RITTMAN (SWRLAB)[address] ALT [Catalytic activity/Vol] 95 U/L High <40 [facility] Comment on above: Performed By: #### L AB113, HCZ757, [id number], LAB17, BDC736, LAB99 ####Event Marketing Intern: NICOLE BOWERS ([phone])[facility] MARI RITTMAN (SWRLAB)[address] [place] [address] [place] Anion gap [Moles/Vol] 8 mmol/L Normal 3-13 [facility] Comment on above: Performed By: #### L AB113, [id number], [id number], LAB17, FMR236, LAB99 ####Event Marketing Intern: NICOLE BOWERS ([id number])[facility]ITALA KAMALJIT RITTMAN (SWRLAB)[address] AST [Catalytic activity/Vol] 52 U/L High <34 [facility] Comment on above: Performed By: #### L AB113, VRU715, [id number], LAB17, LAL854, LAB99 ####Event Marketing Intern: NICOLE BOWERS ([id number])[facility]ITALA KAMALJIT RITTMAN (SWRLAB)[address] [place] [address] Bilirubin [Mass/Vol] 2.2 mg/dL High <1.2 [facility] Comment on above: Performed By: #### L AB113, SLX877, [id number], LAB17, UXD069, LAB99 ####Event Marketing Intern: NICOLE BOWERS ([id number])[facility]ITAL[facility] KAMALJIT RITTMAN (SWRLAB)[address] [place] [address] [place] Calcium [Mass/Vol] 8.8 mg/dL Normal 8.4-10.2 [facility] Comment on above: Performed By: #### L AB113, MMD954, [id number], LAB17, QXW362, LAB99 ####Event Marketing Intern: NICOLE BOWERS ([phone])[facility] KAMALJIT RITTMAN (SWRLAB)[address] [place] [address] [place] Chloride [Moles/Vol] 104 mmol/L Normal 98-107 [facility] Comment on above: Performed By: #### L AB113, [id number], [id number], LAB17, TEI240, LAB99 ####Event Marketing Intern: NICOLE BOWERS ([phone])[facility]ITAL[facility] KAMALJIT RITTMAN (SWRLAB)[address] [place] [address] [place] CO2 [Moles/Vol] 27 mmol/L Normal 22-29 [facility] Comment on above: Performed By: #### L AB113, [id number], [id number], LAB17, JOM247, LAB99 ####Event Marketing Intern: NICOLE BOWERS ([id number])[facility] VIKKITMAN (SWRLAB)[address] [place] [address] [place] Creatinine [Mass/Vol] 1.94 mg/dL High 0.72-1.25 [facility] Comment on above: Performed By: #### L AB113, KIH003, [id number], LAB17, VGW502, LAB99 ####Event Marketing Intern: NICOLE BOWERS ([id number])[facility] (SWRLAB)[address] [place] [address] [place] GLOMERULAR FILTRATION RATE ML/MIN/1.73 SQ M.PREDICTED 42.4 mL/min/1.73m*2 Low >60.0 [facility] Comment on above: Result Comment: Calc ulation based on the Chronic Kidney Disease Epidemiology Collaboration (CKD-EPI) equation refit without adjustment for race Performed By: #### L AB113, ZMH620, [id number], LAB17, SXZ609, LAB99 ####Event Marketing Intern: NICOLE BOWERS ([id number])[facility] (SWRLAB)[address] [place] [address] [place] Glucose [Mass/Vol] 139 mg/dL High 74-100 [facility] Comment on above: Performed By: #### L AB113, EDK115, [id number], LAB17, WVL999, LAB99 ####Event Marketing Intern: NICOLE BOWERS ([id number])[facility] (SWRL[facility])[address] [place] [address] [place] Potassium [Moles/Vol] 3.8 mmol/L Normal 3.5-5.1 [facility] Comment on above: Result Comment: [facility] potassium values may be up to 0.5 mmol/L lower than serum values. Performed By: #### L AB113, [id number], [id number], LAB17, DHB895, LAB99 ####Event Marketing Intern: NICOLE BOWERS ([id number])[facility] ALEXANDERAN (SWRLAB)[address] Protein [Mass/Vol] 6.4 g/dL Normal 6.4-8.3 [facility] Comment on above: Performed By: #### L AB113, JIE259, [id number], LAB17, QRX011, LAB99 ####Event Marketing Intern: NICOLE BOWERS ([id number])[facility] ALEXANDERAN (SWRLAB)[address] Sodium [Moles/Vol] 139 mmol/L Normal 136-145 [facility] Comment on above: Performed By: #### L AB113, LAO202, [id number], LAB17, QXU929, LAB99 ####Event Marketing Intern: NICOLE BOWERS ([phone])[facility] ALEXANDERAN (SWRLAB)[address] [place] [address] Urea nitrogen [Mass/Vol] 35 mg/dL High 8-21 [facility] Comment on above: Performed By: #### L AB113, [id number], [id number], LAB17, LVH594, LAB99 ####Event Marketing Intern: NICOLE BOWERS ([phone])[facility] ALEXANDERAN (SWRLAB)[address] [place] [address] Comprehensive metabolic 1998 panelon 08-09-2024 Albumin [Mass/Vol] 3.4 g/dL Low 3.5 - 5.0 g/dL [facility] ALP [Catalytic activity/Vol] 194 U/L High 40 - 150 U/L [facility] ALT [Catalytic activity/Vol] 95 U/L High NINF - 40 U/L [facility] Anion gap [Moles/Vol] 8 mmol/L 3 - 13 mmol/L [facility] AST [Catalytic activity/Vol] 52 U/L High NINF - 34 U/L [facility] Bilirubin [Mass/Vol] 2.2 mg/dL High NINF - 1.2 mg/dL [facility] Calcium [Mass/Vol] 8.8 mg/dL 8.4 - 10. 2 mg/dL [facility] Chloride [Moles/Vol] 104 mmol/L 98 - 10 7 mmol/L [facility] CO2 [Moles/Vol] 27 mmol/L 22 - 29 mmol/L [facility] Creatinine [Mass/Vol] 1.94 mg/dL High 0.72 - 1.25 mg/dL [facility] GFR/1.73 sq M.predicted (S/P/Bld) [Vol rate/Area] 42.4 mL/min Low - PINF [facility] Glucose [Mass/Vol] 139 mg/dL High 74 - 100 mg/dL [facility] Interpretation and review of laboratory results Abnormal [facility] Potassium [Moles/Vol] 3.8 mmol/L 3.5 - 5.1 mmol/L [facility] Protein [Mass/Vol] 6.4 g/dL 6.4 - 8.3 g/dL [facility] Sodium [Moles/Vol] 139 mmol/L 136 - 145 mmol/L [facility] Urea nitrogen [Mass/Vol] 35 mg/dL High 8 - 21 mg/dL [facility] ECG 12-LEADon 08-09-2024 ECG 12-LEAD Normal [facility] ED Nursing Noteon 08-09-2024 ED Nursing Note Sheets changed per patient request Normal [facility] ED Nursing Note The patient when thi s nurse was leaving room asked when he would be getting pain medications. Physician notified. Normal [facility] ED Nursing Note Normal [facility] ED Provider Noteon ED Provider Note Normal [facility] HIGH SENSITIVITY TROPONIN, S ERIAL BASELINEon 08-09-2024 TROPONIN HS SERIAL BASELINE 31 ng/L Normal <=35 [facility] Comment on above: Result Comment: In i ndividuals presenting with symptoms > 2h, a baseline troponin <= 5 ng/L suggests acutecardiac injury is unlikely and further serial testing is generally not indicated. Performed By: #### L AB113, QHS306, [id number], LAB17, QID681, LAB99 ####Event Marketing Intern: NICOLE BOWERS ([id number])[facility]OSPITALKAMALJITSHORTY FLOWERS (SWRLAB)[address] [place] [address] LIPASEon 08-09-2024 Lipase [Catalytic activity/Vol] 16 U/L Normal <55 [facility] Comment on above: Performed By: #### L AB113, QGO321, [id number], LAB17, UCD904, LAB99 ####Event Marketing Intern: NICOLE BOWERS ([phone])[facility] FLOREZTMAN (SWRLAB)[address] [place] [address] Laboratory - Chemistry and C hemistry - challengeon 08-09-2024 Lipase [Catalytic activity/Vol] 16 U/L NINF - 55 U/L [facility] Lipase [Catalytic activity/V ol]on 08-09-2024 Interpretation and review of laboratory results Normal [facility] MAGNESIUMon 08-09-2024 Magnesium [Mass/Vol] 2.0 mg/dL Normal 1.6-2.6 [facility] Comment on above: Result Comment: ALEJANDRO Aleman COMMENTS:Higher values can be expected in females during menses. Performed By: #### L AB113, CME968, [id number], LAB17, CIH137, LAB99 ####Event Marketing Intern: NICOLE BOWERS ([id number])[facility] ALEXANDERAN (SWRLAB)[address] [place] [address] NT PRO BNPon 08-09-2024 Natriuretic peptide B (Bld) [Mass/Vol] 35487 pg/mL High <125 [facility] Comment on above: Performed By: #### L AB113, [id number], [id number], LAB17, SIJ606, LAB99 ####Event Marketing Intern: NICOLE BOWERS ([id number])[facility] FLOREZTMAN (SWRLAB)[address] [place] [address] [place] Natriuretic peptide B [Mass/ Vol]on 08-09-2024 Interpretation and review of laboratory results Abnormal [facility] Natriuretic peptide B (Bld) [Mass/Vol] 55656 pg/mL High NINF - 125 pg/mL [facility] No Panel Informationon 08-09 Interpretation and review of laboratory results Normal [facility] Troponin HS Serial Baseline 31 ng/L NINF - 35 ng/L [facility] P [place] 63 degrees [facility] NM Interval 148 ms [facility] QRS [place] -15 degrees [facility] QRSD Interval 95 ms [facility] Interval 338 ms [facility] QTC Interval 472 ms [facility] T Wave [place] 122 degrees [facility] CV EPIPHANY [facility] PHOSPHORUSon 08-09-2024 Phosphate [Mass/Vol] 4.1 mg/dL Normal 2.3-4.7 [facility] Comment on above: Performed By: #### L AB113, CSC764, [id number], LAB17, LDB601, LAB99 ####Event Marketing Intern: NICOLE BOWERS ([id number])[facility] ([address] Vital signson 08-09-2024 Heart rate 117 /min bpm [facility] XR Chest Single viewon 08-09 [facility] Radiology Study observation (narrative) [facility] XR Chest Single viewOrdered By: Joel Hi on 08-09-2024 [facility] Work Phone: [phone] 08-05-2024 36 Normal [facility] 36 Normal [facility] 36 Pt presented to ER last evening, approx [address] Astudillo in office. Pt then left the ER AMA, less than 20 minutes after arriving to the ER. Dr Astudillo will review labs Normal [facility] 36 Normal [facility] BASIC METABOLIC PANELon Anion gap [Moles/Vol] 10 mmol/L Normal 3-13 [facility] Comment on above: Performed By: #### L AB20, [id number], LAB15, [id number], [id number] ####Event Marketing Intern: NICOLE BOWERS ([phone])[facility] ([address] Calcium [Mass/Vol] 8.9 mg/dL Normal 8.4-10.2 [facility] Comment on above: Performed By: #### L AB20, OKF654, LAB15, [id number], PFO160 ####Event Marketing Intern: NICOLE BOWERS ([phone])[facility] ([facility])[address] [place] [address] [place] Chloride [Moles/Vol] 98 mmol/L Normal 98-107 [facility] Comment on above: Performed By: #### L AB20, TUV192, LAB15, [id number], RWQ805 ####Event Marketing Intern: NICOLE BOWERS ([phone])[facility] ([facility])[address] [place] [address] CO2 [Moles/Vol] 25 mmol/L Normal 22-29 [facility] Comment on above: Performed By: #### L AB20, NPQ978, LAB15, [id number], CGE257 ####Event Marketing Intern: NICOLE BOWERS ([id number])[facility] ([facility])[address] [place] [address] Creatinine [Mass/Vol] 1.62 mg/dL High 0.72-1.25 [facility] Comment on above: Performed By: #### L AB20, QOM070, LAB15, [id number], FGR667 ####Event Marketing Intern: NICOLE BOWERS ([phone])[facility])[address] [place] [address] GLOMERULAR FILTRATION RATE ML/MIN/1.73 SQ M.PREDICTED 52.7 mL/min/1.73m*2 Low >60.0 [facility] Comment on above: Result Comment: Calc ulation based on the Chronic Kidney Disease Epidemiology Collaboration (CKD-EPI) equation refit without adjustment for race Performed By: #### L AB20, XHG268, LAB15, [id number], YMA771 ####Event Marketing Intern: NICOLE BOWERS ([phone])[facility] ([facility])[address] [place] [address] [place] Glucose [Mass/Vol] 113 mg/dL High 74-100 [facility] Comment on above: Performed By: #### L AB20, [id number], LAB15, [id number], HSX798 ####Event Marketing Intern: NICOLE BOWERS ([phone])[facility] ([address] Potassium [Moles/Vol] 3.6 mmol/L Normal 3.5-5.1 [facility] Comment on above: Result Comment: [facility] potassium values may be up to 0.5 mmol/L lower than serum values. Performed By: #### L AB20, YDX686, LAB15, [id number], HFK952 ####Event Marketing Intern: NICOLE BOWERS ([id number])[facility] ([facility])[address] [place] [address] Sodium [Moles/Vol] 133 mmol/L Low 136-145 [facility] Comment on above: Performed By: #### L AB20, WUD873, LAB15, [id number], PGI027 ####Event Marketing Intern: NICOLE BOWERS ([id number])[facility] ([facility])[address] [place] [address] Urea nitrogen [Mass/Vol] 38 mg/dL High 8-21 [facility] Comment on above: Performed By: #### L AB20, OHE185, LAB15, [id number], QGA576 ####Event Marketing Intern: NICOLE BOWERS ([phone])[facility] ([address] Basic metabolic 1998 panelon 08-05-2024 Anion gap [Moles/Vol] 10 mmol/L 3 - 13 mmol/L [facility] Calcium [Mass/Vol] 8.9 mg/dL 8.4 - 10. 2 mg/dL [facility] Chloride [Moles/Vol] 98 mmol/L 98 - 10 7 mmol/L [facility] CO2 [Moles/Vol] 25 mmol/L 22 - 29 mmol/L [facility] Creatinine [Mass/Vol] 1.62 mg/dL High 0.72 - 1.25 mg/dL [facility] GFR/1.73 sq M.predicted (S/P/Bld) [Vol rate/Area] 52.7 mL/min Low - PINF [facility] Comment on above: Calculation based on the Chronic Kidney Disease Epidemiology Collaboration (CKD-EPI) equation refit without adjustment for race Glucose [Mass/Vol] 113 mg/dL High 74 - 100 mg/dL [facility] Potassium [Moles/Vol] 3.6 mmol/L 3.5 - 5.1 mmol/L [facility] Comment on above: Plasma potassium heidi ues may be up to 0.5 mmol/L lower than serum values. Sodium [Moles/Vol] 133 mmol/L Low 136 - 145 mmol/L [facility] Urea nitrogen [Mass/Vol] 38 mg/dL High 8 - 21 mg/dL [facility] CBC W Auto Differential pane l (Bld)on 08-05-2024 Basophils (Bld) [#/Vol] 0 10*3/uL 0.0 - 0.2 10*3/uL [facility] Basophils/100 WBC (Bld) 0.3 % 0.0 - 2.0 % [facility] Eosinophils (Bld) [#/Vol] 0 10*3/uL 0.0 - 0.5 10*3/uL [facility] Eosinophils/100 WBC (Bld) 0.4 % 0.0 - 6.0 % [facility] Erythrocyte distribution width (RBC) [Ratio] 12.9 % 11.5 - 15.0 % [facility] Hematocrit (Bld) [Volume fraction] 42.7 % 40.0 - 52.0 % [facility] Hemoglobin (Bld) [Mass/Vol] 14.1 g/dL 13.0 - 18.0 g/dL [facility] Immature granulocytes (Bld) [#/Vol] 0 10*3/uL NINF - 0.1 10*3/uL [facility] Immature granulocytes/100 WBC (Bld) 0.1 % 0.0 - 2.0 % [facility] Interpretation and review of laboratory results Abnormal [facility] Lymphocytes (Bld) [#/Vol] 2.2 10*3/uL 1.0 - 4.3 10*3/uL [facility] Lymphocytes/100 WBC (Bld) 32.2 % 15.0 - 45.0 % [facility] MCH (RBC) [Entitic mass] 33.4 pg 26.0 - 34.0 pg [facility] MCHC (RBC) [Mass/Vol] 33 % 30.5 - 36.0 % [facility] MCV (RBC) [Entitic vol] 101.2 fL High 77.0 - 99.0 fL [facility] Monocytes (Bld) [#/Vol] 0.7 10*3/uL 0.0 - 0.9 10*3/uL [facility] Monocytes/100 WBC (Bld) 9.5 % 5.0 - 13.0 % [facility] Neutrophils (Bld) [#/Vol] 3.9 10*3/uL 1.8 - 7.5 10*3/uL [facility] Neutrophils/100 WBC (Bld) 57.5 % 38.0 - 82.0 % [facility] Nucleated RBC/100 WBC (Bld) [Ratio] 0 % [facility] Platelet mean volume (Bld) [Entitic vol] 9.7 fL 9.0 - 12.7 fL [facility] Platelets (Bld) [#/Vol] 253 10*3/uL 140 - 440 10*3/uL [facility] RBC (Bld) [#/Vol] 4.22 10*6/uL Low 4.40 - 5.9 0 10*6/uL [facility] WBC (Bld) [#/Vol] 6.8 10*3/uL 3.6 - 10.7 10*3/uL [facility] CBC WITH AUTO DIFFERENTIALon 08-05-2024 Basophils (Bld) [#/Vol] 0.0 10*3/uL Normal 0.0-0.2 [facility] Comment on above: Performed By: #### L [id number] ####Event Marketing Intern: NICOLE BOWERS ([phone])[address] Basophils/100 WBC (Bld) 0.3 % Normal 0.0-2.0 [facility] Comment on above: Performed By: #### L [id number] ####Event Marketing Intern: NICOLE BOWERS ([phone])[facility])[address] [place] [address] Eosinophils (Bld) [#/Vol] 0.0 10*3/uL Normal 0.0-0.5 [facility] Comment on above: Performed By: #### L [id number] ####Event Marketing Intern: NICOLE BOWERS ([phone])[facility])[address] [place] [address] [place] Eosinophils/100 WBC (Bld) 0.4 % Normal 0.0-6.0 [facility] Comment on above: Performed By: #### L [id number] ####Event Marketing Intern: NICOLE BOWERS ([phone])[facility])[address] [place] [address] Erythrocyte distribution width (RBC) [Ratio] 12.9 % Normal 11.5-15.0 [facility] Comment on above: Performed By: #### L [id number] ####Event Marketing Intern: NICOLE BOWERS ([phone])[facility])[address] [place] [address] Hematocrit (Bld) [Volume fraction] 42.7 % Normal 40.0-52.0 [facility] Comment on above: Performed By: #### L [id number] ####Event Marketing Intern: NICOLE BOWERS ([phone])[address] Hemoglobin (Bld) [Mass/Vol] 14.1 g/dL Normal 13.0-18.0 [facility] Comment on above: Performed By: #### L [id number] ####Event Marketing Intern: NICOLE BOWERS ([phone])[facility])[address] [place] [address] IMMATURE GRANS % 0.1 % Normal 0.0-2.0 [facility] Comment on above: Performed By: #### L [id number] ####Event Marketing Intern: NICOLE BOWERS ([phone])[facility])[address] [place] [address] IMMATURE GRANS ABSOLUTE 0.0 10*3/uL Normal <0.1 [facility] Comment on above: Performed By: #### L [id number] ####Event Marketing Intern: NICOLE BOWERS ([phone])[facility])[address] [place] [address] Lymphocytes (Bld) [#/Vol] 2.2 10*3/uL Normal 1.0-4.3 [facility] Comment on above: Performed By: #### L [id number] ####Event Marketing Intern: NICOLE BOWERS ([phone])[facility])[address] [place] [address] Lymphocytes/100 WBC (Bld) 32.2 % Normal 15.0-45.0 [facility] Comment on above: Performed By: #### L [id number] ####Event Marketing Intern: NICOLE BOWERS ([phone])[facility])[address] [place] [address] MCH (RBC) [Entitic mass] 33.4 pg Normal 26.0-34.0 [facility] Comment on above: Performed By: #### L [id number] ####Event Marketing Intern: NICOLE BOWERS ([id number])[facility])[address] [place] [address] MCHC 33.0 % Normal 30.5-36.0 [facility] Comment on above: Performed By: #### L [id number] ####Event Marketing Intern: NICOLE BOWERS ([id number])[facility])[address] [place] [address] MCV (RBC) [Entitic vol] 101.2 fL High 77.0-99.0 [facility] Comment on above: Performed By: #### L [id number] ####Event Marketing Intern: NICOLE BOWERS ([phone])[facility])[address] [place] [address] Monocytes (Bld) [#/Vol] 0.7 10*3/uL Normal 0.0-0.9 [facility] Comment on above: Performed By: #### L [id number] ####Event Marketing Intern: NICOLE BOWERS ([phone])[facility])[address] [place] [address] Monocytes/100 WBC (Bld) 9.5 % Normal 5.0-13.0 [facility] Comment on above: Performed By: #### L [id number] ####Event Marketing Intern: NICOLE [id number])[facility] [place] [address] NEUTROPHILS ABSOLUTE 3.9 10*3/uL Normal 1.8-7.5 [facility] Comment on above: Performed By: #### L [id number] ####Event Marketing Intern: NICOLE BOWERS ([phone])[facility] ([facility])[address] [place] [address] Neutrophils/100 WBC (Bld) 57.5 % Normal 38.0-82.0 [facility] Comment on above: Performed By: #### L [id number] ####Event Marketing Intern: NICOLE BOWERS ([phone])[facility] ([facility])[address] [place] [address] NRBC 0.0 /100 WBCs Normal 0.0-2.0 [facility] Comment on above: Performed By: #### L [id number] ####Event Marketing Intern: NICOLE BOWERS ([phone])[facility] ([facility])[address] [place] [address] Platelet mean volume (Bld) [Entitic vol] 9.7 fL Normal 9.0-12.7 [facility] Comment on above: Performed By: #### L [id number] ####Event Marketing Intern: NICOLE BOWERS ([phone])[facility] ([facility])[address] [place] [address] Platelets (Bld) [#/Vol] 253 10*3/uL Normal 140-440 [facility] Comment on above: Performed By: #### L [id number] ####Event Marketing Intern: NICOLE BOWERS ([phone])[facility] ([facility])[address] [place] [address] [place] RBC (Bld) [#/Vol] 4.22 10*6/uL Low 4.40-5.90 [facility] Comment on above: Performed By: #### L [id number] ####Event Marketing Intern: NICOLE BOWERS ([phone])[facility] ([facility])[address] [place] [address] [place] WBC (Bld) [#/Vol] 6.8 10*3/uL Normal 3.6-10.7 [facility] Comment on above: Performed By: #### L [id number] ####Event Marketing Intern: NICOLE BOWERS ([id number])[facility] ([facility])[address] [place] [address] ECG 12-LEADon 08-05-2024 ECG 12-LEAD IMPRESSION: Sinus tachycardia LVH with secondary repolarization abnormality Borderline prolonged QT interval Compared to EKG from 08/04/24, new T wave inversions and ST depression V5 Electronically Signed On 08-05-2024 18:28:44 EST by Roman Alejo Normal [facility] ECG 12-LEAD IMPRESSION: Sinus tachycardia LVH with secondary repolarization abnormality Borderline prolonged QT interval Compared to ECG 07/23/24 No significant change Electronically Signed On 08-05-2024 06:42:39 EST by Chas Haddad [facility] ED Nursing Noteon 08-05-2024 ED Nursing Note Pt came up to this R N stating he wanted to leave and was done waiting. Pt refused to speak with 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. PIV removed. Pt ambulated out of IRP with steady gait. Ashtyn 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 made aware pt left Normal [facility] HEPATIC FUNCTION PANELon Albumin [Mass/Vol] 3.4 g/dL Low 3.5-5.0 [facility] Comment on above: Performed By: #### L AB20, [id number], LAB15, [id number], [id number] ####Event Marketing Intern: NICOLE BOWERS ([phone])[facility] [place] [address] ALP [Catalytic activity/Vol] 173 U/L High 40-150 [facility] Comment on above: Performed By: #### L AB20, [id number], LAB15, [id number], [id number] ####Event Marketing Intern: NICOLE BOWERS ([phone])[facility] ([facility])[address] [place] [address] ALT [Catalytic activity/Vol] 101 U/L High <40 [facility] Comment on above: Performed By: #### L AB20, [id number], LAB15, [id number], [id number] ####Event Marketing Intern: NICOLE BOWERS ([phone])[facility])[address] [place] [address] AST [Catalytic activity/Vol] 50 U/L High <34 [facility] Comment on above: Performed By: #### L AB20, EGV800, LAB15, [id number], [id number] ####Event Marketing Intern: NICOLE BOWERS ([phone])[facility])[address] [place] [address] Bilirubin [Mass/Vol] 1.9 mg/dL High <1.2 [facility] Comment on above: Performed By: #### L AB20, [id number], LAB15, [id number], [id number] ####Event Marketing Intern: NICOLE BOWERS ([id number])[address] Bilirubin.indirect [Mass/Vol] 1.0 mg/dL High <0.5 [facility] Comment on above: Performed By: #### L AB20, TUR234, LAB15, [id number], [id number] ####Event Marketing Intern: NICOLE BOWERS ([id number])[address] Protein [Mass/Vol] 6.6 g/dL Normal 6.4-8.3 [facility] Comment on above: Result Comment: Seru m protein values are higher than plasma values. Samples from recumbent persons are lower by up to 0.5 g/dL as compared to ambulatory persons. After 60 years values are lower by up to 0.2 g/dL. Performed By: #### L AB20, QKF023, LAB15, [id number], [id number] ####Event Marketing Intern: NICOLE BOWERS ([id number])[address] HIGH SENSITIVITY TROPONIN, S ERIAL BASELINEon 08-05-2024 TROPONIN HS SERIAL BASELINE 22 ng/L Normal <=35 [facility] Comment on above: Result Comment: In i ndividuals presenting with symptoms > 2h, a baseline troponin <= 5 ng/L suggests acutecardiac injury is unlikely and further serial testing is generally not indicated. Performed By: #### L AB20, ZXS828, LAB15, [id number], [id number] ####Event Marketing Intern: NICOLE BOWERS ([phone])[facility] ([facility])[address] [place] [address] HIGH SENSITIVITY TROPONIN, S ERIAL, SECOND TESTon 08-05-2024 2H TROPONIN HS (SERIAL 2ND TROPONIN) 19 ng/L Normal <=35 [facility] Comment on above: Result Comment: 2h t roponin (2nd troponin) samples collected between 1h 40 min and 2h and 20 min of the baseline collection time can be utilized to interpret delta troponins as per [facility] algorithms. Samples collected outside this timeframe need to be interpreted clinically.Rising or falling troponin delta between 2 ??? 15 ng/L as compared to baseline value requires a 3rd serial troponin Performed By: #### L [id number] ####Event Marketing Intern: NICOLE BOWERS ([phone])[facility] [place] [address] Hepatic function 2000 panelo n 08-05-2024 Albumin [Mass/Vol] 3.4 g/dL Low 3.5 - 5.0 g/dL [facility] ALP [Catalytic activity/Vol] 173 U/L High 40 - 150 U/L [facility] ALT [Catalytic activity/Vol] 101 U/L High NINF - 40 U/L [facility] AST [Catalytic activity/Vol] 50 U/L High NINF - 34 U/L [facility] Bilirubin [Mass/Vol] 1.9 mg/dL High NINF - 1.2 mg/dL [facility] Bilirubin.conjugated [Mass/Vol] 1 mg/dL High NINF - 0.5 mg/dL [facility] Protein [Mass/Vol] 6.6 g/dL 6.4 - 8.3 g/dL [facility] Comment on above: Serum protein values are higher than plasma values. Samples from recumbent persons are lower by up to 0.5 g/dL as compared to ambulatory persons. After 60 years values are lower by up to 0.2 g/dL. Laboratory - Chemistry and C hemistry - challengeon 08-05-2024 Magnesium [Mass/Vol] 2 mg/dL 1.6 - 2 .6 mg/dL [facility] MAGNESIUMon 08-05-2024 Magnesium [Mass/Vol] 2.0 mg/dL Normal 1.6-2.6 [facility] Comment on above: Result Comment: ALEJANDRO Aleman COMMENTS:Higher values can be expected in females during menses. Performed By: #### L AB20, IEH169, LAB15, [id number], [id number] ####Event Marketing Intern: NICOLE BOWERS ([phone])[facility] ([facility])[address] [place] [address] Magnesium [Mass/Vol]on 08-05 Interpretation and review of laboratory results Normal [facility] Higher values can be expected in females during menses. [facility] NT PRO BNPon 08-05-2024 Natriuretic peptide B (Bld) [Mass/Vol] 71818 pg/mL High <125 [facility] Comment on above: Performed By: #### L AB20, EMC999, LAB15, [id number], [id number] ####Event Marketing Intern: NICOLE BOWERS ([phone])[facility] [place] [address] Natriuretic peptide B [Mass/ Vol]on 08-05-2024 Interpretation and review of laboratory results Abnormal [facility] Natriuretic peptide B (Bld) [Mass/Vol] 35201 pg/mL High NINF - 125 pg/mL [facility] No Panel Informationon 08-05 2h Troponin HS (Serial 2nd Troponin) 19 ng/L NINF - 35 ng/L [facility] Comment on above: 2h troponin (2nd tro ponin) samples collected between 1h 40 min and 2h and 20 min of the baseline collection time can be utilized to interpret delta troponins as per [facility] algorithms. Samples collected outside this timeframe need [...] Electronically Signed On 08-05-2024 06:42:39 EST by hCas Haddad [employer] Interpretation and review of laboratory results Normal [employer] [facility] Troponin HS Serial Baseline 22 ng/L NINF - 35 ng/L [employer] [facility] Comment on above: In individuals prese nting with symptoms > 2h, a baseline troponin <= 5 ng/L suggests acute cardiac injury is unlikely and further serial testing is generally not indicated. [employer] Interpretation and review of laboratory results Abnormal [facility] No Panel InformationOrdered By: Chas Haddad on 08-05-2024 P [place] 74 degrees [employer] Phone: NM Interval 157 ms [employer] Phone: QRS [place] -22 degrees [employer] Sp[employer] Phone: QRSD Interval 99 ms [employer] Work Phone: QT Interval 356 ms [employer] Sp[employer] Phone: QTC Interval 477 ms [employer] Work Phone: T Wave [place] 154 degrees [employer] Sp[employer] Phone: [employer] Machine Work Phone: Progress Noteon 08-05-2024 Progress Note Normal [employer] System [facility] Vital signsOrdered By: Clementina Haddad on 08-05-2024 Heart rate 108 /min bpm [employer] Phone: XR Chest 2 Viewson Cardiac enlargement. No convincing acute pulmonary process seen. Report Dictated on Electronically Signed By: Christopher Faria MD Electronically Signed Date/Time: 08/05/2024 3:26 AM EST [employer] Patient Name: CARLO MEDINA : 1980 [...] process seen. 6, Spine:No convincing acute process [facility] Christopher Faria MD - 08/05/2024 [facility] 1980 [id number] Exam Date/Time: 08/05/2024 02:54 Procedure: XR CHEST [...] Electronically Signed Date/Time: 08/05/2024 3:26 AM EST [facility] Radiology Study observation (narrative) Technical Machine XR Chest 2 ViewsOrdered By: Christopher Faria on 08-05-2024 [facility] Work Phone: 37on 08-04-2024 37 Normal [facility] ED Provider Noteon ED Provider Note Normal [facility] Progress Noteon 08-04-2024 Progress Note Normal [facility] Progress Note Better controlled today See #1 GDMT Normal [facility] Progress Note 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 Unprovoked at that time Normal [facility] Progress Note Normal [facility] 36on 08-03-2024 36 Unable to contact patient X2 Normal [facility] 36 Normal [facility] 36on 08-02-2024 36 Normal [facility] 36 S: Patient admitted to: [facility] 07/23/24 B: Discharged on : 07/30/24 A: Hospital follow up call initiated to discuss any medication changes, follow up appointments and discharge instructions: Acute kidney injury R: No contact x 1 at : [phone] [facility] [id number] 07-30-2024 [id number] [facility] 30on 07-30-2024 30 Normal [facility] 30 Normal [facility] [id number] 07-30-2024 [id number] Normal [facility] [id number] [facility] ALBUMINon 07-30-2024 Albumin [Mass/Vol] 2.3 g/dL Low 3.5-5.0 [facility] Comment on above: Performed By: #### L AB45, [id number], LAB15, [id number] ####Event Marketing Intern: LESLEE HERNANDEZ ([id number])[facility] ([facility])[address] [place] [address] BASIC METABOLIC PANELon 07-02 Anion gap [Moles/Vol] 8 mmol/L Normal 3-13 [facility] Comment on above: Performed By: #### L AB45, SHE586, LAB15, QQN213 ####Event Marketing Intern: LESLEE HERNANDEZ ([id number])[facility] ([facility])[address] Calcium [Mass/Vol] 6.4 mg/dL Low 8.4-10.2 [facility] Comment on above: Performed By: #### L AB45, IBO439, LAB15, BXS288 ####Event Marketing Intern: LESLEE HERNANDEZ ([phone])[facility] ([facility])[address] Chloride [Moles/Vol] 108 mmol/L High 98-107 [facility] Comment on above: Performed By: #### L AB45, NOS107, LAB15, IKT605 ####Event Marketing Intern: LESLEE HERNANDEZ ([phone])[facility] ([facility])[address] CO2 [Moles/Vol] 24 mmol/L Normal 22-29 [facility] Comment on above: Performed By: #### L AB45, OIK857, LAB15, DRY692 ####Event Marketing Intern: LESLEE HERNANDEZ ([id number])[facility] ([facility])[address] Creatinine [Mass/Vol] 1.18 mg/dL Normal 0.72-1.25 [facility] Comment on above: Performed By: #### L AB45, CRH425, LAB15, ZRT271 ####Event Marketing Intern: LESLEE HERNANDEZ ([id number])[facility] ([facility])[address] GLOMERULAR FILTRATION RATE ML/MIN/1.73 SQ M.PREDICTED 77.1 mL/min/1.73m*2 Normal >60.0 [facility] Comment on above: Result Comment: Calc ulation based on the Chronic Kidney Disease Epidemiology Collaboration (CKD-EPI) equation refit without adjustment for race Performed By: #### L AB45, EDD617, LAB15, VPV038 ####Event Marketing Intern: LESLEE HERNANDEZ ([phone])[facility] ([facility])[address] Glucose [Mass/Vol] 92 mg/dL Normal 74-100 [facility] Comment on above: Performed By: #### L AB45, PCG030, LAB15, JFE165 ####Event Marketing Intern: LESLEE HERNANDEZ ([id number])[facility] ([facility])[address] Potassium [Moles/Vol] 2.8 mmol/L Low 3.5-5.1 [facility] Comment on above: Result Comment: [facility] potassium values may be up to 0.5 mmol/L lower than serum values. Performed By: #### L AB45, QTV212, LAB15, RGX608 ####Event Marketing Intern: LESLEE HERNANDEZ ([phone])[facility])[address] Sodium [Moles/Vol] 140 mmol/L Normal 136-145 [facility] Comment on above: Performed By: #### L AB45, BZC385, LAB15, GAF653 ####Event Marketing Intern: LESLEE HERNANDEZ ([phone])[facility])[address] Urea nitrogen [Mass/Vol] 30 mg/dL High 8-21 [facility] Comment on above: Performed By: #### L AB45, XUA714, LAB15, FAB774 ####Event Marketing Intern: LESLEE HERNANDEZ ([id number])[facility])[address] Basic metabolic 1998 panelon 07-30-2024 Anion gap [Moles/Vol] 8 mmol/L 3 - 13 mmol/L [facility] Calcium [Mass/Vol] 6.4 mg/dL Low 8.4 - 10. 2 mg/dL [facility] Chloride [Moles/Vol] 108 mmol/L High 98 - 10 7 mmol/L [facility] CO2 [Moles/Vol] 24 mmol/L 22 - 29 mmol/L [facility] Creatinine [Mass/Vol] 1.18 mg/dL 0.72 - 1.25 mg/dL [facility] GFR/1.73 sq M.predicted (S/P/Bld) [Vol rate/Area] 77.1 mL/min - PINF [facility] Comment on above: Calculation based on the Chronic Kidney Disease Epidemiology Collaboration (CKD-EPI) equation refit without adjustment for race Glucose [Mass/Vol] 92 mg/dL 74 - 100 mg/dL [facility] Potassium [Moles/Vol] 2.8 mmol/L Low 3.5 - 5.1 mmol/L [facility] Comment on above: Plasma potassium heidi ues may be up to 0.5 mmol/L lower than serum values. Sodium [Moles/Vol] 140 mmol/L 136 - 145 mmol/L [facility] Urea nitrogen [Mass/Vol] 30 mg/dL High 8 - 21 mg/dL [facility] Laboratory - Chemistry and C hemistry - challengeon 07-30-2024 Albumin [Mass/Vol] 2.3 g/dL Low 3.5 - 5.0 g/dL [facility] Magnesium [Mass/Vol] 1.3 mg/dL Low 1.6 - 2 .6 mg/dL [facility] MAGNESIUMon 07-30-2024 Magnesium [Mass/Vol] 1.3 mg/dL Low 1.6-2.6 [facility] Comment on above: Result Comment: ALEJANDRO Aleman COMMENTS:Higher values can be expected in females during menses. Performed By: #### L AB45, [id number], LAB15, ACF645 ####Event Marketing Intern: LESLEE HERNANDEZ ([phone])[facility] ([facility])[address] [place] [address] Magnesium [Mass/Vol]on 07-30 Higher values can be expected in females during menses. [facility] NT PRO BNPon 07-30-2024 Natriuretic peptide B (Bld) [Mass/Vol] 94299 pg/mL High <125 [facility] Comment on above: Performed By: #### L AB45, DGF778, LAB15, ZAC923 ####Event Marketing Intern: LESLEE HERNANDEZ ([id number])[facility] ([facility])[address] Natriuretic peptide B [Mass/ Vol]on 01-31-2025 Interpretation and review of laboratory results Abnormal [facility] Natriuretic peptide B (Bld) [Mass/Vol] 65220 pg/mL High NINF - 125 pg/mL [facility] No Panel Informationon 07-30 Interpretation and review of laboratory results Abnormal [facility] Interpretation and review of laboratory results Abnormal [facility] Nursing Noteon 07-30-2024 Nursing Note Normal [facility] Progress Noteon 07-30-2024 Progress Note Normal [facility] Progress Note Normal [facility] Progress Note Nutrition update completed. Chart reviewed. Patient continues as a level 1. Normal [facility] 30on 07-29-2024 30 Normal [facility] 30 Normal [facility] CBC W Auto Differential pane l (Bld)on 07-29-2024 Basophils (Bld) [#/Vol] 0 10*3/uL 0.0 - 0.2 10*3/uL [facility] Basophils/100 WBC (Bld) 0.5 % 0.0 - 2.0 % [facility] Eosinophils (Bld) [#/Vol] 0.1 10*3/uL 0.0 - 0.5 10*3/uL [facility] Eosinophils/100 WBC (Bld) 1.7 % 0.0 - 6.0 % [facility] Erythrocyte distribution width (RBC) [Ratio] 13 % 11.5 - 15.0 % [facility] Hematocrit (Bld) [Volume fraction] 38.9 % Low 40.0 - 52.0 % [facility] Hemoglobin (Bld) [Mass/Vol] 12.5 g/dL Low 13.0 - 18.0 g/dL [facility] Immature granulocytes (Bld) [#/Vol] 0 10*3/uL NINF - 0.1 10*3/uL [facility] Immature granulocytes/100 WBC (Bld) 0.3 % 0.0 - 2.0 % [facility] Interpretation and review of laboratory results Abnormal [facility] Lymphocytes (Bld) [#/Vol] 2.3 10*3/uL 1.0 - 4.3 10*3/uL [facility] Lymphocytes/100 WBC (Bld) 39.3 % 15.0 - 45.0 % [facility] MCH (RBC) [Entitic mass] 33.5 pg 26.0 - 34.0 pg [facility] MCHC (RBC) [Mass/Vol] 32.1 % 30.5 - 36.0 % [facility] MCV (RBC) [Entitic vol] 104.3 fL High 77.0 - 99.0 fL [facility] Monocytes (Bld) [#/Vol] 0.5 10*3/uL 0.0 - 0.9 10*3/uL [facility] Monocytes/100 WBC (Bld) 8.6 % 5.0 - 13.0 % [facility] Neutrophils (Bld) [#/Vol] 2.9 10*3/uL 1.8 - 7.5 10*3/uL [facility] Neutrophils/100 WBC (Bld) 49.6 % 38.0 - 82.0 % [facility] Nucleated RBC/100 WBC (Bld) [Ratio] 0 % [facility] Platelet mean volume (Bld) [Entitic vol] 8.9 fL Low 9.0 - 12.7 fL [facility] Platelets (Bld) [#/Vol] 202 10*3/uL 140 - 440 10*3/uL [facility] RBC (Bld) [#/Vol] 3.73 10*6/uL Low 4.40 - 5.9 0 10*6/uL [facility] WBC (Bld) [#/Vol] 5.9 10*3/uL 3.6 - 10.7 10*3/uL [facility] CBC WITH AUTO DIFFERENTIALon 07-29-2024 Basophils (Bld) [#/Vol] 0.0 10*3/uL Normal 0.0-0.2 [facility] Comment on above: Performed By: #### L [id number] ####Event Marketing Intern: LESLEE HERNANDEZ ([id number])[facility]ALMarg[facility] (SBAB)[address] [place] [address] Basophils/100 WBC (Bld) 0.5 % Normal 0.0-2.0 [facility] Comment on above: Performed By: #### L [id number] ####Event Marketing Intern: LESLEE HERNANDEZ ([id number])[facility] (SBHLAB)[address] Eosinophils (Bld) [#/Vol] 0.1 10*3/uL Normal 0.0-0.5 [facility] Comment on above: Performed By: #### L [id number] ####Event Marketing Intern: LESLEE HERNANDEZ ([phone])[facility] (SBHLAB)[address] Eosinophils/100 WBC (Bld) 1.7 % Normal 0.0-6.0 [facility] Comment on above: Performed By: #### L [id number] ####Event Marketing Intern: LESLEE HERNANDEZ ([id number])[facility] (SBAB)[address] Erythrocyte distribution width (RBC) [Ratio] 13.0 % Normal 11.5-15.0 [facility] Comment on above: Performed By: #### L [id number] ####Event Marketing Intern: LESLEE HERNANDEZ ([id number])[facility] (SBAB)[address] Hematocrit (Bld) [Volume fraction] 38.9 % Low 40.0-52.0 [facility] Comment on above: Performed By: #### L [id number] ####Event Marketing Intern: LESLEE HERNANDEZ ([phone])[facility] (SBAB)[address] [place] [address] Hemoglobin (Bld) [Mass/Vol] 12.5 g/dL Low 13.0-18.0 [facility] Comment on above: Performed By: #### L [id number] ####Event Marketing Intern: LESLEE HERNANDEZ ([phone])[facility] (SBHLAB)[address] IMMATURE GRANS % 0.3 % Normal 0.0-2.0 [facility] Comment on above: Performed By: #### L [id number] ####Event Marketing Intern: LESLEE HERNANDEZ ([id number])[facility]N (SBHLAB)[address] IMMATURE GRANS ABSOLUTE 0.0 10*3/uL Normal <0.1 [facility] Comment on above: Performed By: #### L [id number] ####Event Marketing Intern: LESLEE MCNEILLNinoskaTYRONE ([phone])[facility] [place] (SBHLAB)[address] Lymphocytes (Bld) [#/Vol] 2.3 10*3/uL Normal 1.0-4.3 [facility] Comment on above: Performed By: #### L [id number] ####Event Marketing Intern: LESLEE MARY ([id number])[facility] (SBHLAB)[address] Lymphocytes/100 WBC (Bld) 39.3 % Normal 15.0-45.0 [facility] Comment on above: Performed By: #### L [id number] ####Event Marketing Intern: LESLEE TURKTYRONE ([phone])[facility] (SBHLAB)[address] MCH (RBC) [Entitic mass] 33.5 pg Normal 26.0-34.0 [facility] Comment on above: Performed By: #### L [id number] ####Event Marketing Intern: LESLEE TURKTYRONE ([id number])[facility] (SBHLAB)[address] [place] [address] MCHC 32.1 % Normal 30.5-36.0 [facility] Comment on above: Performed By: #### L [id number] ####Event Marketing Intern: LESLEE TURKTYRONE ([id number])[facility] [place] (SBHLAB)[address] [place] [address] MCV (RBC) [Entitic vol] 104.3 fL High 77.0-99.0 [facility] Comment on above: Performed By: #### L [id number] ####Event Marketing Intern: LESLEE HERNANDEZ ([phone])[facility]N (SBHLAB)[address] [place] [address] Monocytes (Bld) [#/Vol] 0.5 10*3/uL Normal 0.0-0.9 [facility] Comment on above: Performed By: #### L [id number] ####Event Marketing Intern: LESLEE TURKTYRONE ([id number])[facility] [place] (SBHLAB)[address] Monocytes/100 WBC (Bld) 8.6 % Normal 5.0-13.0 [facility] Comment on above: Performed By: #### L [id number] ####Event Marketing Intern: LESLEE TURKTYRONE ([id number])[facility] [place] (SBHLAB)[address] NEUTROPHILS ABSOLUTE 2.9 10*3/uL Normal 1.8-7.5 [facility] Comment on above: Performed By: #### L [id number] ####Event Marketing Intern: LESLEE CMNEILLRAMON ([phone])[facility] [place] (SBHLAB)[address] Neutrophils/100 WBC (Bld) 49.6 % Normal 38.0-82.0 [facility] Comment on above: Performed By: #### L [id number] ####Event Marketing Intern: LESLEE TURKTYRONE ([phone])[facility] [place] (SBHLAB)[address] NRBC 0.0 /100 WBCs Normal 0.0-2.0 [facility] Comment on above: Performed By: #### L [id number] ####Event Marketing Intern: LESLEE TURKTYRONE ([id number])[facility] [place] (SBHLAB)[address] Platelet mean volume (Bld) [Entitic vol] 8.9 fL Low 9.0-12.7 [facility] Comment on above: Performed By: #### L [id number] ####Event Marketing Intern: LESLEE TURKTYRONE ([phone])[facility] [place] (SBHLAB)[address] [place] [address] [place] Platelets (Bld) [#/Vol] 202 10*3/uL Normal 140-440 [facility] Comment on above: Performed By: #### L [id number] ####Event Marketing Intern: LESLEE HERNANDEZ ([phone])[facility] [place] (SBHLAB)[address] RBC (Bld) [#/Vol] 3.73 10*6/uL Low 4.40-5.90 [facility] Comment on above: Performed By: #### L [id number] ####Event Marketing Intern: LESLEE HERNANDEZ ([phone])[facility] [place] (SBHLAB)[address] WBC (Bld) [#/Vol] 5.9 10*3/uL Normal 3.6-10.7 [facility] Comment on above: Performed By: #### L [id number] ####Event Marketing Intern: LESLEE HERNANDEZ ([phone])[facility] [place] (SBHLAB)[address] COMPREHENSIVE METABOLIC PANE Ming 07-29-2024 Albumin [Mass/Vol] 2.4 g/dL Low 3.5-5.0 [facility] Comment on above: Performed By: #### L AB103, LAB17, [id number] ####Event Marketing Intern: LESLEE HERNANDEZ ([phone])[facility] [place] (SBHLAB)[address] [place] [address] ALP [Catalytic activity/Vol] 125 U/L Normal 40-150 [facility] Comment on above: Performed By: #### L AB103, LAB17, [id number] ####Event Marketing Intern: LESLEE HERNANDEZ ([id number])[facility] [place] (SBHLAB)[address] ALT [Catalytic activity/Vol] 36 U/L Normal <40 [facility] Comment on above: Performed By: #### L AB103, LAB17, [id number] ####Event Marketing Intern: LESLEE HERNANDEZ ([id number])[facility] [place] (SBHLAB)[address] Anion gap [Moles/Vol] 8 mmol/L Normal 3-13 [facility] Comment on above: Performed By: #### L AB103, LAB17, [id number] ####Event Marketing Intern: LESLEE HERNANDEZ ([id number])[facility] [place] (SBHLAB)[address] AST [Catalytic activity/Vol] 22 U/L Normal <34 [facility] Comment on above: Performed By: #### L AB103, LAB17, [id number] ####Event Marketing Intern: LESLEE HERNANDEZ ([id number])[facility] [place] (SBHLAB)[address] Bilirubin [Mass/Vol] 1.2 mg/dL High <1.2 [facility] Comment on above: Performed By: #### L AB103, LAB17, [id number] ####Event Marketing Intern: LESLEE HERNANDEZ ([id number])[facility] [place] (SBHLAB)[address] Calcium [Mass/Vol] 6.9 mg/dL Low 8.4-10.2 [facility] Comment on above: Performed By: #### L AB103, LAB17, UEF410 ####Event Marketing Intern: LESLEE HERNANDEZ ([id number])[facility] [place] (SBHLAB)[address] Chloride [Moles/Vol] 103 mmol/L Normal 98-107 [facility] Comment on above: Performed By: #### L AB103, LAB17, [id number] ####Event Marketing Intern: LESLEE HERNANDEZ ([id number])[facility] [place] (SBHLAB)[address] [place] [address] [place] CO2 [Moles/Vol] 25 mmol/L Normal 22-29 [facility] Comment on above: Performed By: #### L AB103, LAB17, XSH850 ####Event Marketing Intern: LESLEE HERNANDEZ ([id number])[facility] [place] (SBHLAB)[address] Creatinine [Mass/Vol] 1.36 mg/dL High 0.72-1.25 [facility] Comment on above: Performed By: #### Pedro ECHEVERRIA, LAB17, [id number] ####Event Marketing Intern: LESLEE HERNANDEZ ([id number])[facility] [place] (SBHLAB)[address] GLOMERULAR FILTRATION RATE ML/MIN/1.73 SQ M.PREDICTED 65.0 mL/min/1.73m*2 Normal >60.0 [facility] Comment on above: Result Comment: Calc ulation based on the Chronic Kidney Disease Epidemiology Collaboration (CKD-EPI) equation refit without adjustment for race Performed By: #### Pedro ECHEVERRIA, LAB17, [id number] ####Event Marketing Intern: LESLEE HERNANDEZ ([phone])[facility]ITALKeyon MCFADDENMarguerite (SBHLAB)[address] Glucose [Mass/Vol] 103 mg/dL High 74-100 [facility] Comment on above: Performed By: #### Pedro ECHEVERRIA, LAB17, [id number] ####Event Marketing Intern: LESLEE HERNANDEZ ([id number])[facility]ITAL[facility] MCFADDENMarguerite (SBHLAB)[address] Potassium [Moles/Vol] 3.3 mmol/L Low 3.5-5.1 [facility] Comment on above: Result Comment: [facility] potassium values may be up to 0.5 mmol/L lower than serum values. Performed By: #### Pedro JESSICA103, LAB17, [id number] ####Event Marketing Intern: LESLEE HERNANDEZ ([phone])[facility]ENMarguer[facility] (SBHLAB)[address] Protein [Mass/Vol] 5.2 g/dL Low 6.4-8.3 [facility] Comment on above: Performed By: #### Pedro AB103, LAB17, [id number] ####Event Marketing Intern: LESLEE HERNANDEZ ([id number])[facility]ITALKey[facility] [place] (SBHLAB)[address] [place] [address] [place] Sodium [Moles/Vol] 136 mmol/L Normal 136-145 [facility] Comment on above: Performed By: #### L AB103, LAB17, [id number] ####Event Marketing Intern: LESLEE TORRESCER ([phone])[facility] (SBHLAB)[address] Urea nitrogen [Mass/Vol] 28 mg/dL High 8-21 [facility] Comment on above: Performed By: #### L AB103, LAB17, STU362 ####Event Marketing Intern: LESLEE MCNEILLRAMON ([phone])[facility] (SBHLAB)[address] Comprehensive metabolic 1998 panelon 07-29-2024 Albumin [Mass/Vol] 2.4 g/dL Low 3.5 - 5.0 g/dL [facility] ALP [Catalytic activity/Vol] 125 U/L 40 - 150 U/L [facility] ALT [Catalytic activity/Vol] 36 U/L NINF - 40 U/L [facility] Anion gap [Moles/Vol] 8 mmol/L 3 - 13 mmol/L [facility] AST [Catalytic activity/Vol] 22 U/L [facility] - 34 U/L [facility] Bilirubin [Mass/Vol] 1.2 mg/dL High [facility] - 1.2 mg/dL [facility] Calcium [Mass/Vol] 6.9 mg/dL Low 8.4 - 10. 2 mg/dL [facility] Chloride [Moles/Vol] 103 mmol/L 98 - 10 7 mmol/L [facility] CO2 [Moles/Vol] 25 mmol/L 22 - 29 mmol/L [facility] Creatinine [Mass/Vol] 1.36 mg/dL High 0.72 - 1.25 mg/dL [facility] GFR/1.73 sq M.predicted (S/P/Bld) [Vol rate/Area] 65 mL/min - PINF [facility] Comment on above: Calculation based on the Chronic Kidney Disease Epidemiology Collaboration (CKD-EPI) equation refit without adjustment for race Glucose [Mass/Vol] 103 mg/dL High 74 - 100 mg/dL [facility] Interpretation and review of laboratory results Abnormal [facility] Potassium [Moles/Vol] 3.3 mmol/L Low 3.5 - 5.1 mmol/L [facility] Comment on above: Plasma potassium heidi ues may be up to 0.5 mmol/L lower than serum values. Protein [Mass/Vol] 5.2 g/dL Low 6.4 - 8.3 g/dL [facility] Sodium [Moles/Vol] 136 mmol/L 136 - 145 mmol/L [facility] Urea nitrogen [Mass/Vol] 28 mg/dL High 8 - 21 mg/dL [facility] Laboratory - Chemistry and C hemistry - challengeon 07-29-2024 Magnesium [Mass/Vol] 1.4 mg/dL Low 1.6 - 2 .6 mg/dL [facility] MAGNESIUMon 07-29-2024 Magnesium [Mass/Vol] 1.4 mg/dL Low 1.6-2.6 [facility] Comment on above: Result Comment: ALEJANDRO Aleman COMMENTS:Higher values can be expected in females during menses. Performed By: #### L AB103, LAB17, [id number] ####Event Marketing Intern: LESLEE HERNANDEZ ([id number])[facility] ([facility])[address] Magnesium [Mass/Vol]on 07-29 Interpretation and review of laboratory results Abnormal [facility] Higher values can be expected in females during menses. [facility] NT PRO BNPon 07-29-2024 Natriuretic peptide B (Bld) [Mass/Vol] 99461 pg/mL High <125 [facility] Comment on above: Performed By: #### L AB103, LAB17, [id number] ####Event Marketing Intern: LESLEE HERNANDEZ ([phone])[facility] (SBHLAB)[address] Natriuretic peptide B [Mass/ Vol]on 07-29-2024 Interpretation and review of laboratory results Abnormal [facility] Natriuretic peptide B (Bld) [Mass/Vol] 73193 pg/mL High NINF - 125 pg/mL [facility] Nursing Noteon 07-29-2024 Nursing Note Nursing went to give IV Magnesium and patient refused. Notified Lilibeth Anguiano APRN. Normal [facility] Progress Noteon 07-29-2024 Progress Note [facility] Progress Note Normal [facility] Progress Note Normal [facility] 30on 07-28-2024 30 Normal [facility] 30 Normal [facility] CBC W Auto Differential pane l (Bld)on 07-28-2024 Basophils (Bld) [#/Vol] 0 10*3/uL 0.0 - 0.2 10*3/uL [facility] Basophils/100 WBC (Bld) 0.4 % 0.0 - 2.0 % [facility] Eosinophils (Bld) [#/Vol] 0.1 10*3/uL 0.0 - 0.5 10*3/uL [facility] Eosinophils/100 WBC (Bld) 1.8 % 0.0 - 6.0 % [facility] Erythrocyte distribution width (RBC) [Ratio] 13.2 % 11.5 - 15.0 % [facility] Hematocrit (Bld) [Volume fraction] 44.8 % 40.0 - 52.0 % [facility] Hemoglobin (Bld) [Mass/Vol] 14.3 g/dL 13.0 - 18.0 g/dL [facility] Immature granulocytes (Bld) [#/Vol] 0 10*3/uL NINF - 0.1 10*3/uL [facility] Immature granulocytes/100 WBC (Bld) 0.2 % 0.0 - 2.0 % [facility] Interpretation and review of laboratory results Abnormal [facility] Lymphocytes (Bld) [#/Vol] 2.2 10*3/uL 1.0 - 4.3 10*3/uL [facility] Lymphocytes/100 WBC (Bld) 38.7 % 15.0 - 45.0 % [facility] MCH (RBC) [Entitic mass] 33 pg 26.0 - 34.0 pg [facility] MCHC (RBC) [Mass/Vol] 31.9 % 30.5 - 36.0 % [facility] MCV (RBC) [Entitic vol] 103.5 fL High 77.0 - 99.0 fL [facility] Monocytes (Bld) [#/Vol] 0.5 10*3/uL 0.0 - 0.9 10*3/uL [facility] Monocytes/100 WBC (Bld) 9.7 % 5.0 - 13.0 % [facility] Neutrophils (Bld) [#/Vol] 2.8 10*3/uL 1.8 - 7.5 10*3/uL [facility] Neutrophils/100 WBC (Bld) 49.2 % 38.0 - 82.0 % [facility] Nucleated RBC/100 WBC (Bld) [Ratio] 0 % [facility] Platelet mean volume (Bld) [Entitic vol] 9 fL 9.0 - 12.7 fL [facility] Platelets (Bld) [#/Vol] 225 10*3/uL 140 - 440 10*3/uL [facility] RBC (Bld) [#/Vol] 4.33 10*6/uL Low 4.40 - 5.9 0 10*6/uL [facility] WBC (Bld) [#/Vol] 5.6 10*3/uL 3.6 - 10.7 10*3/uL [facility] CBC WITH AUTO DIFFERENTIALon 07-28-2024 Basophils (Bld) [#/Vol] 0.0 10*3/uL Normal 0.0-0.2 [facility] Comment on above: Performed By: #### L [id number] ####Event Marketing Intern: LESLEE HERNANDEZ ([phone])[facility] ([facility])[address] [place] [address] Basophils/100 WBC (Bld) 0.4 % Normal 0.0-2.0 [facility] Comment on above: Performed By: #### L [id number] ####Event Marketing Intern: LESLEE HERNANDEZ ([phone])[facility] (SBHLAB)[address] Eosinophils (Bld) [#/Vol] 0.1 10*3/uL Normal 0.0-0.5 [facility] Comment on above: Performed By: #### L [id number] ####Event Marketing Intern: LESLEE HERNANDEZ ([id number])[facility] (SBAB)[address] [place] [address] [place] Eosinophils/100 WBC (Bld) 1.8 % Normal 0.0-6.0 [facility] Comment on above: Performed By: #### L [id number] ####Event Marketing Intern: LESLEE TURKTYRONE ([id number])[facility] [place] (SBHLAB)[address] Erythrocyte distribution width (RBC) [Ratio] 13.2 % Normal 11.5-15.0 [facility] Comment on above: Performed By: #### L [id number] ####Event Marketing Intern: LESLEE MCNEILLRAMON ([phone])[facility] ([facility])[address] Hematocrit (Bld) [Volume fraction] 44.8 % Normal 40.0-52.0 [facility] Comment on above: Performed By: #### L [id number] ####Event Marketing Intern: LESLEE TURKTYRONE ([id number])[facility] (SBHLAB)[address] Hemoglobin (Bld) [Mass/Vol] 14.3 g/dL Normal 13.0-18.0 [facility] Comment on above: Performed By: #### L [id number] ####Event Marketing Intern: LESLEE HERNANDEZ ([phone])[facility] (SBAB)[address] [place] [address] IMMATURE GRANS % 0.2 % Normal 0.0-2.0 [facility] Comment on above: Performed By: #### L [id number] ####Event Marketing Intern: LESLEE HERNANDEZ ([phone])[facility] (SBHLAB)[address] IMMATURE GRANS ABSOLUTE 0.0 10*3/uL Normal <0.1 [facility] Comment on above: Performed By: #### L [id number] ####Event Marketing Intern: LESLEE HERNANDEZ ([phone])[facility] (SBHLAB)[address] Lymphocytes (Bld) [#/Vol] 2.2 10*3/uL Normal 1.0-4.3 [facility] Comment on above: Performed By: #### L [id number] ####Event Marketing Intern: LESLEEFIDELIA HERNANDEZ ([phone])[facility] [place] (SBHLAB)[address] Lymphocytes/100 WBC (Bld) 38.7 % Normal 15.0-45.0 [facility] Comment on above: Performed By: #### L [id number] ####Event Marketing Intern: LESLEE MARY ([id number])[facility] [place] (SBHLAB)[address] MCH (RBC) [Entitic mass] 33.0 pg Normal 26.0-34.0 [facility] Comment on above: Performed By: #### L [id number] ####Event Marketing Intern: LESLEE MARY ([id number])[facility] [place] (SBHLAB)[address] MCHC 31.9 % Normal 30.5-36.0 [facility] Comment on above: Performed By: #### L [id number] ####Event Marketing Intern: LESLEE MARY ([id number])[facility] [place] (SBHLAB)[address] MCV (RBC) [Entitic vol] 103.5 fL High 77.0-99.0 [facility] Comment on above: Performed By: #### L [id number] ####Event Marketing Intern: LESLEE MARY ([phone])[facility] [place] (SBHLAB)[address] [place] [address] [place] Monocytes (Bld) [#/Vol] 0.5 10*3/uL Normal 0.0-0.9 [facility] Comment on above: Performed By: #### L [id number] ####Event Marketing Intern: LESLEE TURKTYRONE ([id number])[facility] [place] (SBHLAB)[address] Monocytes/100 WBC (Bld) 9.7 % Normal 5.0-13.0 [facility] Comment on above: Performed By: #### L [id number] ####Event Marketing Intern: LESLEE HERNANDEZ ([phone])[facility] [place] (SBHLAB)[address] NEUTROPHILS ABSOLUTE 2.8 10*3/uL Normal 1.8-7.5 [facility] Comment on above: Performed By: #### L [id number] ####Event Marketing Intern: LESLEE HERNANDEZ ([id number])[facility] [place] (SBHLAB)[address] Neutrophils/100 WBC (Bld) 49.2 % Normal 38.0-82.0 [facility] Comment on above: Performed By: #### L [id number] ####Event Marketing Intern: LESLEE HERNANDEZ ([phone])[facility] [place] (SBHLAB)[address] NRBC 0.0 /100 WBCs Normal 0.0-2.0 [facility] Comment on above: Performed By: #### L [id number] ####Event Marketing Intern: LESLEE HERNANDEZ ([phone])[facility] [place] (SBHLAB)[address] Platelet mean volume (Bld) [Entitic vol] 9.0 fL Normal 9.0-12.7 [facility] Comment on above: Performed By: #### L [id number] ####Event Marketing Intern: LESLEE HERNANDEZ ([id number])[facility] [place] (SBHLAB)[address] [place] [address] [place] Platelets (Bld) [#/Vol] 225 10*3/uL Normal 140-440 [facility] Comment on above: Performed By: #### L [id number] ####Event Marketing Intern: LESLEE HERNANDEZ ([id number])[facility] [place] (SB[facility])[address] RBC (Bld) [#/Vol] 4.33 10*6/uL Low 4.40-5.90 [facility] Comment on above: Performed By: #### L [id number] ####Event Marketing Intern: LESLEE HERNANDEZ ([id number])[facility] [place] (SB[facility])[address] WBC (Bld) [#/Vol] 5.6 10*3/uL Normal 3.6-10.7 [facility] Comment on above: Performed By: #### L [id number] ####Event Marketing Intern: LESLEE HERNANDEZ ([id number])[facility] [place] (SB[facility])[address] COMPREHENSIVE METABOLIC PANE Ming 07-28-2024 Albumin [Mass/Vol] 3.1 g/dL Low 3.5-5.0 [facility] Comment on above: Performed By: #### L [id number], [id number], LAB17 ####Event Marketing Intern: LESLEE HERNANDEZ ([id number])[facility] [place] (SB[facility])[address] ALP [Catalytic activity/Vol] 153 U/L High 40-150 [facility] Comment on above: Performed By: #### L [id number], [id number], LAB17 ####Event Marketing Intern: LESLEE HERNANDEZ ([id number])[facility] [place] (SB[facility]AB)[address] ALT [Catalytic activity/Vol] 49 U/L High <40 [facility] Comment on above: Performed By: #### L AB103, [id number], LAB17 ####Event Marketing Intern: LESLEE HERNANDEZ ([phone])[facility] [place] (SBHLAB)[address] Anion gap [Moles/Vol] 10 mmol/L Normal 3-13 [facility] Comment on above: Performed By: #### L AB103, [id number], LAB17 ####Event Marketing Intern: LESLEE HERNANDEZ ([id number])[facility] [place] (SBHLAB)[address] AST [Catalytic activity/Vol] 26 U/L Normal <34 [facility] Comment on above: Performed By: #### L AB103, [id number], LAB17 ####Event Marketing Intern: LESLEE HERNANDEZ ([id number])[facility] [place] (SBHLAB)[address] Bilirubin [Mass/Vol] 1.6 mg/dL High <1.2 [facility] Comment on above: Performed By: #### L AB103, [id number], LAB17 ####Event Marketing Intern: LESLEE HERNANDEZ ([phone])[facility] (SBHLAB)[address] Calcium [Mass/Vol] 8.3 mg/dL Low 8.4-10.2 [facility] Comment on above: Performed By: #### L AB103, [id number], LAB17 ####Event Marketing Intern: LESLEE HERNANDEZ ([phone])[facility] [place] (SBHLAB)[address] Chloride [Moles/Vol] 99 mmol/L Normal 98-107 [facility] Comment on above: Performed By: #### L AB103, [id number], LAB17 ####Event Marketing Intern: LESLEE HERNANDEZ ([phone])[facility] [place] (SBHLAB)[address] CO2 [Moles/Vol] 31 mmol/L High 22-29 [facility] Comment on above: Performed By: #### L AB103, [id number], LAB17 ####Event Marketing Intern: LESLEE HENRANDEZ ([phone])[facility] [place] (SBHLAB)155 [place] [address] [place] Creatinine [Mass/Vol] 1.66 mg/dL High 0.72-1.25 [facility] Comment on above: Performed By: #### L AB103, [id number], LAB17 ####Event Marketing Intern: LESLEE HERNANDEZ ([phone])[facility] [place] (SBHLAB)[address] GLOMERULAR FILTRATION RATE ML/MIN/1.73 SQ M.PREDICTED 51.2 mL/min/1.73m*2 Low >60.0 [facility] Comment on above: Result Comment: Calc ulation based on the Chronic Kidney Disease Epidemiology Collaboration (CKD-EPI) equation refit without adjustment for race Performed By: #### L AB103, [id number], LAB17 ####Event Marketing Intern: LESLEE HERNANDEZ ([phone])[facility] (SBHLAB)[address] Glucose [Mass/Vol] 97 mg/dL Normal 74-100 [facility] Comment on above: Performed By: #### L AB103, [id number], LAB17 ####Event Marketing Intern: LESLEE HERNANDEZ ([phone])[facility] (SBHLAB)[address] Potassium [Moles/Vol] 3.5 mmol/L Normal 3.5-5.1 [facility] Comment on above: Result Comment: [facility] potassium values may be up to 0.5 mmol/L lower than serum values. Performed By: #### L AB103, [id number], LAB17 ####Event Marketing Intern: LESLEE HERNANDEZ ([phone])[facility] (SBHLAB)[address] Protein [Mass/Vol] 6.1 g/dL Low 6.4-8.3 [facility] Comment on above: Performed By: #### L AB103, [id number], LAB17 ####Event Marketing Intern: LESLEE HERNANDEZ ([phone])[facility] (SBHLAB)[address] [place] [address] [place] Sodium [Moles/Vol] 140 mmol/L Normal 136-145 [facility] Comment on above: Performed By: #### L AB103, [id number], LAB17 ####Event Marketing Intern: LESLEE HERNANDEZ ([phone])[facility] (SBHLAB)[address] [place] [address] [place] Urea nitrogen [Mass/Vol] 29 mg/dL High 8-21 [facility] Comment on above: Performed By: #### L AB103, [id number], LAB17 ####Event Marketing Intern: LESLEE HERNANDEZ ([phone])[facility] [place] (SBHLAB)[address] Comprehensive metabolic 1998 panelon 07-28-2024 Albumin [Mass/Vol] 3.1 g/dL Low 3.5 - 5.0 g/dL [facility] ALP [Catalytic activity/Vol] 153 U/L High 40 - 150 U/L [facility] ALT [Catalytic activity/Vol] 49 U/L High NINF - 40 U/L [facility] Anion gap [Moles/Vol] 10 mmol/L 3 - 13 mmol/L [facility] AST [Catalytic activity/Vol] 26 U/L NINF - 34 U/L [facility] Bilirubin [Mass/Vol] 1.6 mg/dL High NINF - 1.2 mg/dL [facility] Calcium [Mass/Vol] 8.3 mg/dL Low 8.4 - 10. 2 mg/dL [facility] Chloride [Moles/Vol] 99 mmol/L 98 - 10 7 mmol/L [facility] CO2 [Moles/Vol] 31 mmol/L High 22 - 29 mmol/L [facility] Creatinine [Mass/Vol] 1.66 mg/dL High 0.72 - 1.25 mg/dL [facility] GFR/1.73 sq M.predicted (S/P/Bld) [Vol rate/Area] 51.2 mL/min Low - PINF [facility] Comment on above: Calculation based on the Chronic Kidney Disease Epidemiology Collaboration (CKD-EPI) equation refit without adjustment for race Glucose [Mass/Vol] 97 mg/dL 74 - 100 mg/dL [facility] Interpretation and review of laboratory results Abnormal [facility] Potassium [Moles/Vol] 3.5 mmol/L 3.5 - 5.1 mmol/L [facility] Comment on above: Plasma potassium heidi ues may be up to 0.5 mmol/L lower than serum values. Protein [Mass/Vol] 6.1 g/dL Low 6.4 - 8.3 g/dL [facility] Sodium [Moles/Vol] 140 mmol/L 136 - 145 mmol/L [facility] Urea nitrogen [Mass/Vol] 29 mg/dL High 8 - 21 mg/dL [facility] Laboratory - Chemistry and C hemistry - challengeon 07-28-2024 Magnesium [Mass/Vol] 1.5 mg/dL Low 1.6 - 2 .6 mg/dL [facility] MAGNESIUMon 07-28-2024 Magnesium [Mass/Vol] 1.5 mg/dL Low 1.6-2.6 [facility] Comment on above: Result Comment: ALEJANDRO Aleman COMMENTS:Higher values can be expected in females during menses. Performed By: #### L AB103, [id number], LAB17 ####Event Marketing Intern: LESLEE HERNANDEZ ([phone])[facility] ([facility])[address] [place] [address] Magnesium [Mass/Vol]on 07-28 Interpretation and review of laboratory results Abnormal [facility] Higher values can be expected in females during menses. [facility] Medical Studenton 07-28-2024 Medical Student Normal [facility] NT PRO BNPon 07-28-2024 Natriuretic peptide B (Bld) [Mass/Vol] 59748 pg/mL High <125 [facility] Comment on above: Performed By: #### L AB103, [id number], LAB17 ####Event Marketing Intern: LESLEE HERNANDEZ ([id number])[facility] ([facility])[address] [place] [address] Natriuretic peptide B [Mass/ Vol]on 07-28-2024 Interpretation and review of laboratory results Abnormal [facility] Natriuretic peptide B (Bld) [Mass/Vol] 87328 pg/mL High NINF - 125 pg/mL [facility] Progress Noteon 07-28-2024 Progress Note Normal [facility] Progress Note Normal [facility] 30on 07-27-2024 30 Normal [facility] [id number] 07-27-2024 [id number] Normal [facility] CBC W Auto Differential pane l (Bld)on 07-27-2024 Basophils (Bld) [#/Vol] 0 10*3/uL 0.0 - 0.2 10*3/uL [facility] Basophils/100 WBC (Bld) 0.4 % 0.0 - 2.0 % [facility] Eosinophils (Bld) [#/Vol] 0.1 10*3/uL 0.0 - 0.5 10*3/uL [facility] Eosinophils/100 WBC (Bld) 1.4 % 0.0 - 6.0 % [facility] Erythrocyte distribution width (RBC) [Ratio] 13.3 % 11.5 - 15.0 % [facility] Hematocrit (Bld) [Volume fraction] 42.4 % 40.0 - 52.0 % [facility] Hemoglobin (Bld) [Mass/Vol] 13.8 g/dL 13.0 - 18.0 g/dL [facility] Immature granulocytes (Bld) [#/Vol] 0 10*3/uL NINF - 0.1 10*3/uL [facility] Immature granulocytes/100 WBC (Bld) 0.4 % 0.0 - 2.0 % [facility] Interpretation and review of laboratory results Abnormal [facility] Lymphocytes (Bld) [#/Vol] 1.8 10*3/uL 1.0 - 4.3 10*3/uL [facility] Lymphocytes/100 WBC (Bld) 31.2 % 15.0 - 45.0 % [facility] MCH (RBC) [Entitic mass] 33.2 pg 26.0 - 34.0 pg [facility] MCHC (RBC) [Mass/Vol] 32.5 % 30.5 - 36.0 % [facility] MCV (RBC) [Entitic vol] 101.9 fL High 77.0 - 99.0 fL [facility] Monocytes (Bld) [#/Vol] 0.5 10*3/uL 0.0 - 0.9 10*3/uL [facility] Monocytes/100 WBC (Bld) 9.4 % 5.0 - 13.0 % [facility] Neutrophils (Bld) [#/Vol] 3.2 10*3/uL 1.8 - 7.5 10*3/uL [facility] Neutrophils/100 WBC (Bld) 57.2 % 38.0 - 82.0 % [facility] Nucleated RBC/100 WBC (Bld) [Ratio] 0 % [facility] Platelet mean volume (Bld) [Entitic vol] 9.2 fL 9.0 - 12.7 fL [facility] Platelets (Bld) [#/Vol] 241 10*3/uL 140 - 440 10*3/uL [facility] RBC (Bld) [#/Vol] 4.16 10*6/uL Low 4.40 - 5.9 0 10*6/uL [facility] WBC (Bld) [#/Vol] 5.7 10*3/uL 3.6 - 10.7 10*3/uL [facility] CBC WITH AUTO DIFFERENTIALon 07-27-2024 Basophils (Bld) [#/Vol] 0.0 10*3/uL Normal 0.0-0.2 [facility] Comment on above: Performed By: #### L [id number] ####Event Marketing Intern: LESLEE HERNANDEZ ([phone])[facility])[address] [place] [address] Basophils/100 WBC (Bld) 0.4 % Normal 0.0-2.0 [facility] Comment on above: Performed By: #### L [id number] ####Event Marketing Intern: LESLEE HERNANDEZ ([phone])[facility])[address] [place] [address] Eosinophils (Bld) [#/Vol] 0.1 10*3/uL Normal 0.0-0.5 [facility] Comment on above: Performed By: #### L [id number] ####Event Marketing Intern: LESLEE HERNANDEZ ([id number])[facility])[address] Eosinophils/100 WBC (Bld) 1.4 % Normal 0.0-6.0 [facility] Comment on above: Performed By: #### L [id number] ####Event Marketing Intern: LESLEE HERNANDEZ ([phone])[facility])[address] [place] [address] Erythrocyte distribution width (RBC) [Ratio] 13.3 % Normal 11.5-15.0 [facility] Comment on above: Performed By: #### L [id number] ####Event Marketing Intern: LESLEE MCNEILLNinoskaTYRONE ([phone])[facility] [place] (SBHLAB)[address] Hematocrit (Bld) [Volume fraction] 42.4 % Normal 40.0-52.0 [facility] Comment on above: Performed By: #### L [id number] ####Event Marketing Intern: LESLEE MARY ([id number])[facility] [place] (SBHLAB)[address] Hemoglobin (Bld) [Mass/Vol] 13.8 g/dL Normal 13.0-18.0 [facility] Comment on above: Performed By: #### L [id number] ####Event Marketing Intern: LESLEE MARY ([phone])[facility] (SBAB)[address] [place] [address] IMMATURE GRANS % 0.4 % Normal 0.0-2.0 [facility] Comment on above: Performed By: #### L [id number] ####Event Marketing Intern: LESLEE MCNEILLNinoskaTYRONE ([phone])[facility] (SBAB)[address] [place] [address] IMMATURE GRANS ABSOLUTE 0.0 10*3/uL Normal <0.1 [facility] Comment on above: Performed By: #### L [id number] ####Event Marketing Intern: LESLEE TURKTYRONE ([id number])[facility] (SBHLAB)[address] [place] [address] Lymphocytes (Bld) [#/Vol] 1.8 10*3/uL Normal 1.0-4.3 [facility] Comment on above: Performed By: #### L [id number] ####Event Marketing Intern: LESLEE TURKTYRONE ([id number])[facility] [place] (SBHLAB)[address] [place] [address] Lymphocytes/100 WBC (Bld) 31.2 % Normal 15.0-45.0 [facility] Comment on above: Performed By: #### L [id number] ####Event Marketing Intern: LESLEE MCNEILLNinoskaTYRONE ([phone])[facility] [place] (SBHLAB)[address] MCH (RBC) [Entitic mass] 33.2 pg Normal 26.0-34.0 [facility] Comment on above: Performed By: #### L [id number] ####Event Marketing Intern: LESLEE MARY ([phone])[facility] (SBHLAB)[address] MCHC 32.5 % Normal 30.5-36.0 [facility] Comment on above: Performed By: #### L [id number] ####Event Marketing Intern: LESLEE MARY ([phone])[facility]ITALKeyon [facility]BNEW [facility] (SBHLAB)[address] MCV (RBC) [Entitic vol] 101.9 fL High 77.0-99.0 [facility] Comment on above: Performed By: #### L [id number] ####Event Marketing Intern: LESLEE TURKTYRONE ([phone])[facility] (SBHLAB)[address] Monocytes (Bld) [#/Vol] 0.5 10*3/uL Normal 0.0-0.9 [facility] Comment on above: Performed By: #### L [id number] ####Event Marketing Intern: LESLEE HERNANDEZ ([phone])[facility] (SBHLAB)[address] Monocytes/100 WBC (Bld) 9.4 % Normal 5.0-13.0 [facility] Comment on above: Performed By: #### L [id number] ####Event Marketing Intern: LESLEE HERNANDEZ ([phone])[facility] (SBHLAB)[address] NEUTROPHILS ABSOLUTE 3.2 10*3/uL Normal 1.8-7.5 [facility] Comment on above: Performed By: #### L [id number] ####Event Marketing Intern: LESLEE MCNEILLNinoskaTYRONE ([phone])[facility]ITALKeyon [facility]BNEW [facility] (SBHLAB)[address] Neutrophils/100 WBC (Bld) 57.2 % Normal 38.0-82.0 [facility] Comment on above: Performed By: #### L [id number] ####Event Marketing Intern: LESLEE MARY ([id number])[facility] (SBHLAB)[address] NRBC 0.0 /100 WBCs Normal 0.0-2.0 [facility] Comment on above: Performed By: #### L [id number] ####Event Marketing Intern: LESLEE MARY ([phone])[facility]ITAL[facility] (SBHLAB)[address] Platelet mean volume (Bld) [Entitic vol] 9.2 fL Normal 9.0-12.7 [facility] Comment on above: Performed By: #### L [id number] ####Event Marketing Intern: LESLEE MARY ([phone])[facility]ITAL[facility] (SBHLAB)[address] Platelets (Bld) [#/Vol] 241 10*3/uL Normal 140-440 [facility] Comment on above: Performed By: #### L [id number] ####Event Marketing Intern: LESLEE TURKTYRONE ([id number])[facility]ITAL[facility] (SBHLAB)[address] RBC (Bld) [#/Vol] 4.16 10*6/uL Low 4.40-5.90 [facility] Comment on above: Performed By: #### L [id number] ####Event Marketing Intern: LESLEE MCNEILLRAMON ([phone])[facility] LELONEW MEX[facility] (SBHLAB)[address] WBC (Bld) [#/Vol] 5.7 10*3/uL Normal 3.6-10.7 [facility] Comment on above: Performed By: #### L [id number] ####Event Marketing Intern: LESLEE TORRESCER ([id number])[facility] [place] (SBHLAB)[address] COMPREHENSIVE METABOLIC PANE Ming 07-27-2024 Albumin [Mass/Vol] 3.1 g/dL Low 3.5-5.0 [facility] Comment on above: Performed By: #### L AB17, [id number] ####Event Marketing Intern: LESLEE HERNANDEZ ([phone])[facility] [place] (SBHLAB)[address] ALP [Catalytic activity/Vol] 175 U/L High 40-150 [facility] Comment on above: Performed By: #### L AB17, [id number] ####Event Marketing Intern: LESLEE HERNANDEZ ([phone])[facility] [place] (SBHLAB)[address] ALT [Catalytic activity/Vol] 60 U/L High <40 [facility] Comment on above: Performed By: #### L AB17, [id number] ####Event Marketing Intern: LESLEE HERNANDEZ ([phone])[facility] [place] (SBHLAB)[address] Anion gap [Moles/Vol] 14 mmol/L High 3-13 [facility] Comment on above: Performed By: #### L AB17, [id number] ####Event Marketing Intern: LESLEE HERNANDEZ ([id number])[facility] [place] (SBHLAB)[address] AST [Catalytic activity/Vol] 31 U/L Normal <34 [facility] Comment on above: Performed By: #### L AB17, [id number] ####Event Marketing Intern: LESLEE HERNANDEZ ([phone])[facility] [place] (SBHLAB)[address] Bilirubin [Mass/Vol] 1.3 mg/dL High <1.2 [facility] Comment on above: Performed By: #### L AB17, [id number] ####Event Marketing Intern: LESLEE HERNANDEZ ([phone])[facility]ITALKeyon [place] (SBHLAB)[address] Calcium [Mass/Vol] 8.4 mg/dL Normal 8.4-10.2 [facility] Comment on above: Performed By: #### L AB17, [id number] ####Event Marketing Intern: LESLEE HERNANDEZ ([phone])[facility] [place] (SBHLAB)[address] Chloride [Moles/Vol] 102 mmol/L Normal 98-107 [facility] Comment on above: Performed By: #### L AB17, [id number] ####Event Marketing Intern: LESLEE HERNANDEZ ([phone])[facility]ITAL[facility]on [place] (SBHLAB)[address] CO2 [Moles/Vol] 24 mmol/L Normal 22-29 [facility] Comment on above: Performed By: #### L AB17, [id number] ####Event Marketing Intern: LESLEE HERNANDEZ ([phone])[facility]ITAL[facility]on [place] (SBHLAB)[address] Creatinine [Mass/Vol] 1.84 mg/dL High 0.72-1.25 [facility] Comment on above: Performed By: #### L AB17, [id number] ####Event Marketing Intern: LESLEE HERNANDEZ ([phone])[facility]ITALKeyon [place] (SBHLAB)[address] [place] [address] [place] GLOMERULAR FILTRATION RATE ML/MIN/1.73 SQ M.PREDICTED 45.2 mL/min/1.73m*2 Low >60.0 [facility] Comment on above: Result Comment: Calc ulation based on the Chronic Kidney Disease Epidemiology Collaboration (CKD-EPI) equation refit without adjustment for race Performed By: #### L AB17, [id number] ####Event Marketing Intern: LESLEE HERNANDEZ ([phone])[facility] [place] (SBHLAB)[address] [place] [address] [place] Glucose [Mass/Vol] 95 mg/dL Normal 74-100 [facility] Comment on above: Performed By: #### L AB17, [id number] ####Event Marketing Intern: LESLEE HERNANDEZ ([id number])[facility]ONEW [facility] (SBHLAB)[address] Potassium [Moles/Vol] 3.6 mmol/L Normal 3.5-5.1 [facility] Comment on above: Result Comment: [facility] potassium values may be up to 0.5 mmol/L lower than serum values. Performed By: #### L AB17, [id number] ####Event Marketing Intern: LESLEE HERNANDEZ ([phone])[facility] (SBHLAB)[address] Protein [Mass/Vol] 6.3 g/dL Low 6.4-8.3 [facility] Comment on above: Performed By: #### L AB17, [id number] ####Event Marketing Intern: LESLEE HERNANDEZ ([phone])[facility] (SBHLAB)[address] Sodium [Moles/Vol] 140 mmol/L Normal 136-145 [facility] Comment on above: Performed By: #### L AB17, [id number] ####Event Marketing Intern: LESLEE HERNANDEZ ([phone])[facility] (SBHLAB)[address] Urea nitrogen [Mass/Vol] 35 mg/dL High 8-21 [facility] Comment on above: Performed By: #### L AB17, [id number] ####Event Marketing Intern: LESLEE HERNANDEZ ([phone])[facility] (SB[facility]AB)[address] Comprehensive metabolic 1998 panelon 07-27-2024 Albumin [Mass/Vol] 3.1 g/dL Low 3.5 - 5.0 g/dL [facility] ALP [Catalytic activity/Vol] 175 U/L High 40 - 150 U/L [facility] ALT [Catalytic activity/Vol] 60 U/L High NINF - 40 U/L [facility] Anion gap [Moles/Vol] 14 mmol/L High 3 - 13 mmol/L [facility] AST [Catalytic activity/Vol] 31 U/L NINF - 34 U/L [facility] Bilirubin [Mass/Vol] 1.3 mg/dL High NINF - 1.2 mg/dL [facility] Calcium [Mass/Vol] 8.4 mg/dL 8.4 - 10. 2 mg/dL [facility] Chloride [Moles/Vol] 102 mmol/L 98 - 10 7 mmol/L [facility] CO2 [Moles/Vol] 24 mmol/L 22 - 29 mmol/L [facility] Creatinine [Mass/Vol] 1.84 mg/dL High 0.72 - 1.25 mg/dL [facility] GFR/1.73 sq M.predicted (S/P/Bld) [Vol rate/Area] 45.2 mL/min Low - PINF [facility] Comment on above: Calculation based on the Chronic Kidney Disease Epidemiology Collaboration (CKD-EPI) equation refit without adjustment for race Glucose [Mass/Vol] 95 mg/dL 74 - 100 mg/dL [facility] Interpretation and review of laboratory results Abnormal [facility] Potassium [Moles/Vol] 3.6 mmol/L 3.5 - 5.1 mmol/L [facility] Comment on above: Plasma potassium heidi ues may be up to 0.5 mmol/L lower than serum values. Protein [Mass/Vol] 6.3 g/dL Low 6.4 - 8.3 g/dL [facility] Sodium [Moles/Vol] 140 mmol/L 136 - 145 mmol/L [facility] Urea nitrogen [Mass/Vol] 35 mg/dL High 8 - 21 mg/dL [facility] Medical Studenton 07-27-2024 Medical Student Normal [facility] NT PRO BNPon 07-27-2024 Natriuretic peptide B (Bld) [Mass/Vol] 40603 pg/mL High <125 [facility] Comment on above: Performed By: #### L AB17, [id number] ####Event Marketing Intern: LESLEE HERNANDEZ ([phone])[facility] (SBHLAB)[address] [place] [address] Natriuretic peptide B [Mass/ Vol]on 01-28-2025 Interpretation and review of laboratory results Abnormal [facility] Natriuretic peptide B (Bld) [Mass/Vol] 02994 pg/mL High NINF - 125 pg/mL [facility] Progress Noteon 07-27-2024 Progress Note Normal [facility] Progress Note Normal [facility] Progress Note Normal [facility] [id number] 07-26-2024 [id number] Normal [facility] 30on 07-26-2024 30 Normal [facility] 30 Normal [facility] CBC W Auto Differential pane l (Bld)on 07-26-2024 Basophils (Bld) [#/Vol] 0 10*3/uL 0.0 - 0.2 10*3/uL [facility] Basophils/100 WBC (Bld) 0.4 % 0.0 - 2.0 % [facility] Eosinophils (Bld) [#/Vol] 0.1 10*3/uL 0.0 - 0.5 10*3/uL [facility] Eosinophils/100 WBC (Bld) 1.5 % 0.0 - 6.0 % [facility] Erythrocyte distribution width (RBC) [Ratio] 13.4 % 11.5 - 15.0 % [facility] Hematocrit (Bld) [Volume fraction] 43 % 40.0 - 52.0 % [facility] Hemoglobin (Bld) [Mass/Vol] 14.1 g/dL 13.0 - 18.0 g/dL [facility] Immature granulocytes (Bld) [#/Vol] 0 10*3/uL NINF - 0.1 10*3/uL [facility] Immature granulocytes/100 WBC (Bld) 0.2 % 0.0 - 2.0 % [facility] Interpretation and review of laboratory results Abnormal [facility] Lymphocytes (Bld) [#/Vol] 1.8 10*3/uL 1.0 - 4.3 10*3/uL [facility] Lymphocytes/100 WBC (Bld) 33 % 15.0 - 45.0 % [facility] MCH (RBC) [Entitic mass] 33.3 pg 26.0 - 34.0 pg [facility] MCHC (RBC) [Mass/Vol] 32.8 % 30.5 - 36.0 % [facility] MCV (RBC) [Entitic vol] 101.4 fL High 77.0 - 99.0 fL [facility] Monocytes (Bld) [#/Vol] 0.4 10*3/uL 0.0 - 0.9 10*3/uL [facility] Monocytes/100 WBC (Bld) 6.9 % 5.0 - 13.0 % [facility] Neutrophils (Bld) [#/Vol] 3.2 10*3/uL 1.8 - 7.5 10*3/uL [facility] Neutrophils/100 WBC (Bld) 58 % 38.0 - 82.0 % [facility] Nucleated RBC/100 WBC (Bld) [Ratio] 0 % [facility] Platelet mean volume (Bld) [Entitic vol] 9.6 fL 9.0 - 12.7 fL [facility] Platelets (Bld) [#/Vol] 240 10*3/uL 140 - 440 10*3/uL [facility] RBC (Bld) [#/Vol] 4.24 10*6/uL Low 4.40 - 5.9 0 10*6/uL [facility] WBC (Bld) [#/Vol] 5.5 10*3/uL 3.6 - 10.7 10*3/uL [facility] CBC WITH AUTO DIFFERENTIALon 07-26-2024 Basophils (Bld) [#/Vol] 0.0 10*3/uL Normal 0.0-0.2 [facility] Comment on above: Performed By: #### L [id number] ####Event Marketing Intern: LESLEE HERNANDEZ ([phone])[facility] ([facility])[address] [place] [address] Basophils/100 WBC (Bld) 0.4 % Normal 0.0-2.0 [facility] Comment on above: Performed By: #### L [id number] ####Event Marketing Intern: LESLEE HERNANDEZ ([phone])[facility] ([facility])[address] [place] [address] Eosinophils (Bld) [#/Vol] 0.1 10*3/uL Normal 0.0-0.5 [facility] Comment on above: Performed By: #### L [id number] ####Event Marketing Intern: LESLEE HERNANDEZ ([phone])[facility] ([facility])[address] Eosinophils/100 WBC (Bld) 1.5 % Normal 0.0-6.0 [facility] Comment on above: Performed By: #### L [id number] ####Event Marketing Intern: LESLEE HERNANDEZ ([id number])[facility] Erythrocyte distribution width (RBC) [Ratio] 13.4 % Normal 11.5-15.0 [facility] Comment on above: Performed By: #### L [id number] ####Event Marketing Intern: LESLEE HERNANDEZ ([phone])[facility] ([facility])[address] [place] [address] Hematocrit (Bld) [Volume fraction] 43.0 % Normal 40.0-52.0 [facility] Comment on above: Performed By: #### L [id number] ####Event Marketing Intern: LESLEE HERNANDEZ ([phone])[facility] [place] [address] Hemoglobin (Bld) [Mass/Vol] 14.1 g/dL Normal 13.0-18.0 [facility] Comment on above: Performed By: #### L [id number] ####Event Marketing Intern: LESLEE HERNANDEZ ([id number])[facility] IMMATURE GRANS % 0.2 % Normal 0.0-2.0 [facility] Comment on above: Performed By: #### L [id number] ####Event Marketing Intern: LESLEE HERNANDEZ ([phone])[facility] IMMATURE GRANS ABSOLUTE 0.0 10*3/uL Normal <0.1 [facility] Comment on above: Performed By: #### L [id number] ####Event Marketing Intern: LESLEE HERNANDEZ ([phone])[facility] ([facility])[address] Lymphocytes (Bld) [#/Vol] 1.8 10*3/uL Normal 1.0-4.3 [facility] Comment on above: Performed By: #### L [id number] ####Event Marketing Intern: LESLEE HERNANDEZ ([phone])[facility])[address] Lymphocytes/100 WBC (Bld) 33.0 % Normal 15.0-45.0 [facility] Comment on above: Performed By: #### L [id number] ####Event Marketing Intern: LESLEE HERNANDEZ ([phone])[facility])[address] MCH (RBC) [Entitic mass] 33.3 pg Normal 26.0-34.0 [facility] Comment on above: Performed By: #### L [id number] ####Event Marketing Intern: LESLEE HERNANDEZ ([phone])[facility] ([facility])[address] MCHC 32.8 % Normal 30.5-36.0 [facility] Comment on above: Performed By: #### L [id number] ####Event Marketing Intern: LESLEE HERNANDEZ ([phone])[facility])[address] MCV (RBC) [Entitic vol] 101.4 fL High 77.0-99.0 [facility] Comment on above: Performed By: #### L [id number] ####Event Marketing Intern: LESLEE HERNANDEZ ([phone])[facility])[address] [place] [address] [place] Monocytes (Bld) [#/Vol] 0.4 10*3/uL Normal 0.0-0.9 [facility] Comment on above: Performed By: #### L [id number] ####Event Marketing Intern: LESLEE HERNANDEZ ([phone])[facility] ([facility])[address] Monocytes/100 WBC (Bld) 6.9 % Normal 5.0-13.0 [facility] Comment on above: Performed By: #### L [id number] ####Event Marketing Intern: LESLEE HERNANDEZ ([phone])[facility])[address] NEUTROPHILS ABSOLUTE 3.2 10*3/uL Normal 1.8-7.5 [facility] Comment on above: Performed By: #### L [id number] ####Event Marketing Intern: LESLEE HERNANDEZ ([id number])[facility] ([facility])[address] Neutrophils/100 WBC (Bld) 58.0 % Normal 38.0-82.0 [facility] Comment on above: Performed By: #### L [id number] ####Event Marketing Intern: LESLEE HERNANDEZ ([phone])[facility])[address] NRBC 0.0 /100 WBCs Normal 0.0-2.0 [facility] Comment on above: Performed By: #### L [id number] ####Event Marketing Intern: LESLEE HERNANDEZ ([phone])[facility] ([facility])[address] Platelet mean volume (Bld) [Entitic vol] 9.6 fL Normal 9.0-12.7 [facility] Comment on above: Performed By: #### L [id number] ####Event Marketing Intern: LESLEE HERNANDEZ ([id number])[facility] ([facility])[address] [place] [address] [place] Platelets (Bld) [#/Vol] 240 10*3/uL Normal 140-440 [facility] Comment on above: Performed By: #### L [id number] ####Event Marketing Intern: LESLEE HERNANDEZ ([phone])[facility])[address] RBC (Bld) [#/Vol] 4.24 10*6/uL Low 4.40-5.90 [facility] Comment on above: Performed By: #### L [id number] ####Event Marketing Intern: LESLEE HERNANDEZ ([phone])[facility] KNOTTNEW MEX[facility] L[facility]ASN ([facility])[address] WBC (Bld) [#/Vol] 5.5 10*3/uL Normal 3.6-10.7 [facility] Comment on above: Performed By: #### L [id number] ####Event Marketing Intern: LESLEE HERNANDEZ ([id number])[facility] LELONEW MEX[facility]N ([facility])[address] COMPREHENSIVE METABOLIC PANE Ming 07-26-2024 Albumin [Mass/Vol] 2.9 g/dL Low 3.5-5.0 [facility] Comment on above: Performed By: #### L AB17, DDV214, BCG344 ####Event Marketing Intern: LESLEE HERNANDEZ ([phone])[facility] [place] ([facility])[address] ALP [Catalytic activity/Vol] 166 U/L High 40-150 [facility] Comment on above: Performed By: #### L AB17, [id number], CAX032 ####Event Marketing Intern: LESLEE HERNANDEZ ([phone])[facility] ([facility])[address] ALT [Catalytic activity/Vol] 57 U/L High <40 [facility] Comment on above: Performed By: #### L AB17, TNL685, ZNC683 ####Event Marketing Intern: LESLEE HERNANDEZ ([id number])[facility] ([facility])[address] Anion gap [Moles/Vol] 12 mmol/L Normal 3-13 [facility] Comment on above: Performed By: #### L AB17, RUS362, GIC101 ####Event Marketing Intern: LESLEE MARY ([phone])[facility] [place] ([facility])[address] AST [Catalytic activity/Vol] 27 U/L Normal <34 [facility] Comment on above: Performed By: #### L AB17, CEA745, CAI824 ####Event Marketing Intern: LESLEE MARY ([phone])[facility] [place] ([facility])[address] Bilirubin [Mass/Vol] 1.4 mg/dL High <1.2 [facility] Comment on above: Performed By: #### L AB17, VYR889, PQK868 ####Event Marketing Intern: LESLEEFIDELIA HERNANDEZ ([phone])[facility] [place] ([facility])[address] Calcium [Mass/Vol] 8.5 mg/dL Normal 8.4-10.2 [facility] Comment on above: Performed By: #### L AB17, KCD525, [id number] ####Event Marketing Intern: LESLEE MARY ([phone])[facility] K[facility]TNEW MEX[facility]N ([facility])[address] [place] [address] [place] Chloride [Moles/Vol] 103 mmol/L Normal 98-107 [facility] Comment on above: Performed By: #### L AB17, JFR666, BJG027 ####Event Marketing Intern: LESLEE MCNEILLRAMON ([phone])[facility]TNEW MEX[facility] ([facility])[address] [place] [address] [place] CO2 [Moles/Vol] 23 mmol/L Normal 22-29 [facility] Comment on above: Performed By: #### L AB17, LQA619, AUZ197 ####Event Marketing Intern: LESLEE MARY ([id number])[facility]TNEW M[facility] ([facility])[address] Creatinine [Mass/Vol] 2.14 mg/dL High 0.72-1.25 [facility] Comment on above: Performed By: #### L AB17, YJY572, JGR959 ####Event Marketing Intern: LESLEE HERNANDEZ ([id number])[facility] ([facility])[address] [place] [address] [place] GLOMERULAR FILTRATION RATE ML/MIN/1.73 SQ M.PREDICTED 37.7 mL/min/1.73m*2 Low >60.0 [facility] Comment on above: Result Comment: Calc ulation based on the Chronic Kidney Disease Epidemiology Collaboration (CKD-EPI) equation refit without adjustment for race Performed By: #### L AB17, RWJ415, EKM144 ####Event Marketing Intern: LESLEE HERNANDEZ ([id number])[facility] ([facility])[address] Glucose [Mass/Vol] 114 mg/dL High 74-100 [facility] Comment on above: Performed By: #### L AB17, JOI197, OUK665 ####Event Marketing Intern: LESLEE HERNANDEZ ([id number])[facility] ([facility])[address] [place] [address] Potassium [Moles/Vol] 3.4 mmol/L Low 3.5-5.1 [facility] Comment on above: Result Comment: [facility] potassium values may be up to 0.5 mmol/L lower than serum values. Performed By: #### L AB17, OEH302, YTP097 ####Event Marketing Intern: LESLEE HERNANDEZ ([phone])[facility] ([facility])[address] [place] [address] [place] Protein [Mass/Vol] 5.9 g/dL Low 6.4-8.3 [facility] Comment on above: Performed By: #### L AB17, KCC540, TCL859 ####Event Marketing Intern: LESLEE HERNANDEZ ([phone])[facility] ([facility])[address] Sodium [Moles/Vol] 138 mmol/L Normal 136-145 [facility] Comment on above: Performed By: #### L AB17, LDC540, VAW966 ####Event Marketing Intern: LESLEE HERNANDEZ ([phone])[facility] MCFADDENMarguerite (SBHL[facility])[address] Urea nitrogen [Mass/Vol] 40 mg/dL High 8-21 [facility] Comment on above: Performed By: #### L AB17, QBD124, [id number] ####Event Marketing Intern: LESLEE HERNANDEZ ([id number])[facility] [place] ([facility])[address] Comprehensive metabolic 1998 panelon 07-26-2024 Albumin [Mass/Vol] 2.9 g/dL Low 3.5 - 5.0 g/dL [facility] ALP [Catalytic activity/Vol] 166 U/L High 40 - 150 U/L [facility] ALT [Catalytic activity/Vol] 57 U/L High NINF - 40 U/L [facility] Anion gap [Moles/Vol] 12 mmol/L 3 - 13 mmol/L [facility] AST [Catalytic activity/Vol] 27 U/L NINF - 34 U/L [facility] Bilirubin [Mass/Vol] 1.4 mg/dL High [facility] - 1.2 mg/dL [facility] Calcium [Mass/Vol] 8.5 mg/dL 8.4 - 10. 2 mg/dL [facility] Chloride [Moles/Vol] 103 mmol/L 98 - 10 7 mmol/L [facility] CO2 [Moles/Vol] 23 mmol/L 22 - 29 mmol/L [facility] Creatinine [Mass/Vol] 2.14 mg/dL High 0.72 - 1.25 mg/dL [facility] GFR/1.73 sq M.predicted (S/P/Bld) [Vol rate/Area] 37.7 mL/min Low - PINF [facility] Comment on above: Calculation based on the Chronic Kidney Disease Epidemiology Collaboration (CKD-EPI) equation refit without adjustment for race Glucose [Mass/Vol] 114 mg/dL High 74 - 100 mg/dL [facility] Interpretation and review of laboratory results Abnormal [facility] Potassium [Moles/Vol] 3.4 mmol/L Low 3.5 - 5.1 mmol/L [facility] Comment on above: Plasma potassium heidi ues may be up to 0.5 mmol/L lower than serum values. Protein [Mass/Vol] 5.9 g/dL Low 6.4 - 8.3 g/dL [facility] Sodium [Moles/Vol] 138 mmol/L 136 - 145 mmol/L [facility] Urea nitrogen [Mass/Vol] 40 mg/dL High 8 - 21 mg/dL [facility] Consulton 07-26-2024 Consult Normal [facility] Laboratory - Chemistry and C hemistry - challengeon 07-26-2024 Magnesium [Mass/Vol] 1.8 mg/dL 1.6 - 2 .6 mg/dL [facility] MAGNESIUMon 07-26-2024 Magnesium [Mass/Vol] 1.8 mg/dL Normal 1.6-2.6 [facility] Comment on above: Result Comment: ALEJANDRO Aleman COMMENTS:Higher values can be expected in females during menses. Performed By: #### L AB17, [id number], [id number] ####Event Marketing Intern: LESLEE HERNANDEZ ([phone])[facility] ([facility])[address] [place] [address] Magnesium [Mass/Vol]on 07-26 Interpretation and review of laboratory results Normal [facility] Higher values can be expected in females during menses. [facility] Medical Studenton 07-26-2024 Medical Student Normal [facility] NT PRO BNPon 07-26-2024 Natriuretic peptide B (Bld) [Mass/Vol] 13507 pg/mL High <125 [facility] Comment on above: Performed By: #### L AB17, MSI678, MXU149 ####Event Marketing Intern: LESLEE HERNANDEZ ([phone])[facility] ([facility])[address] [place] [address] Natriuretic peptide B [Mass/ Vol]on 07-26-2024 Interpretation and review of laboratory results Abnormal [facility] Natriuretic peptide B (Bld) [Mass/Vol] 51842 pg/mL High NINF - 125 pg/mL [facility] Nursing Noteon 07-26-2024 Nursing Note Pt refusing carvedilol and potassium at this time, states he doesn't take meds until 2099. Medication moved to 2099. Normal [facility] Nursing Note Normal [facility] Nursing Note Normal [facility] Nursing Note Attempted to draw la b but patient refused at this time.informed the provider.Electronical ly signed by Osiris Huber RN [facility] Progress Noteon 07-26-2024 Progress Note Normal [facility] Progress Note Normal [facility] [id number] 07-25-2024 [id number] [facility] Consulton 07-25-2024 Consult Normal [facility] Nursing Noteon 07-25-2024 Nursing Note Attempted to draw la b but patient is refusing to draw lab.Informed the doctor. Normal [facility] Progress Noteon 07-25-2024 Progress Note Normal [facility] Progress Note Normal [facility] Progress Note Normal [facility] Progress Note Nutrition rescreen complete. Pt assigned a level one for nutrition care. Normal [facility] 30on 07-24-2024 30 Normal [facility] 30 Normal [facility] BASIC METABOLIC PANELon 07-01 Anion gap [Moles/Vol] 10 mmol/L Normal 3-13 [facility] Comment on above: Performed By: #### L AB15, ZVB050, IVK237 ####Event Marketing Intern: LESLEE HERNANDEZ ([phone])[facility] ([facility])[address] [place] [address] Calcium [Mass/Vol] 8.5 mg/dL Normal 8.4-10.2 [facility] Comment on above: Performed By: #### L AB15, XRU775, HDS927 ####Event Marketing Intern: LESLEE HERNANDEZ ([phone])[facility] ([facility])[address] [place] [address] [place] Chloride [Moles/Vol] 108 mmol/L High 98-107 [facility] Comment on above: Performed By: #### L AB15, [id number], TZI115 ####Event Marketing Intern: LESLEE HERNANDEZ ([id number])[facility] ([facility])[address] [place] [address] [place] CO2 [Moles/Vol] 20 mmol/L Low 22-29 [facility] Comment on above: Performed By: #### L AB15, PPI864, CVY271 ####Event Marketing Intern: LESLEE HERNANDEZ ([id number])[facility] [place] ([facility])[address] Creatinine [Mass/Vol] 2.19 mg/dL High 0.72-1.25 [facility] Comment on above: Performed By: #### L AB15, UFT167, NQG131 ####Event Marketing Intern: LESLEE HERNANDEZ ([phone])[facility] [place] ([facility])[address] GLOMERULAR FILTRATION RATE ML/MIN/1.73 SQ M.PREDICTED 36.7 mL/min/1.73m*2 Low >60.0 [facility] Comment on above: Result Comment: Calc ulation based on the Chronic Kidney Disease Epidemiology Collaboration (CKD-EPI) equation refit without adjustment for race Performed By: #### L AB15, OTC318, SBA477 ####Event Marketing Intern: LESLEE HERNANDEZ ([id number])[facility] [place] ([facility])[address] Glucose [Mass/Vol] 108 mg/dL High 74-100 [facility] Comment on above: Performed By: #### L AB15, KQQ907, UMQ612 ####Event Marketing Intern: LESLEE HERNANDEZ ([phone])[facility] [place] ([facility])[address] Potassium [Moles/Vol] 4.3 mmol/L Normal 3.5-5.1 [facility] Comment on above: Result Comment: [facility] potassium values may be up to 0.5 mmol/L lower than serum values. Performed By: #### L AB15, MVS261, UPM291 ####Event Marketing Intern: LESLEE HERNANDEZ ([phone])[facility] ([facility])[address] Sodium [Moles/Vol] 138 mmol/L Normal 136-145 [facility] Comment on above: Performed By: #### L AB15, SNL514, FOR157 ####Event Marketing Intern: LESLEE HERNANDEZ ([phone])[facility] [place] ([facility])[address] Urea nitrogen [Mass/Vol] 38 mg/dL High 8-21 [facility] Comment on above: Performed By: #### L AB15, PSM884, AVG524 ####Event Marketing Intern: LESLEE HERNANDEZ ([id number])[facility] [place] ([facility])[address] Anion gap [Moles/Vol] 12 mmol/L Normal 3-13 [facility] Comment on above: Performed By: #### L AB15, [id number] ####Event Marketing Intern: LESLEE HERNANDEZ ([phone])[facility]TNEW [facility] ([facility])[address] Calcium [Mass/Vol] 8.3 mg/dL Low 8.4-10.2 [facility] Comment on above: Performed By: #### L AB15, RJY259 ####Event Marketing Intern: LESLEE HERNANDEZ ([phone])[facility] ([facility])[address] Chloride [Moles/Vol] 107 mmol/L Normal 98-107 [facility] Comment on above: Performed By: #### L AB15, CVS571 ####Event Marketing Intern: LESLEE HERNANDEZ ([id number])[facility] [place] ([facility])[address] [place] [address] [place] CO2 [Moles/Vol] 19 mmol/L Low 22-29 [facility] Comment on above: Performed By: #### L AB15, [id number] ####Event Marketing Intern: LESLEE HERNANDEZ ([phone])[facility] [place] ([facility])[address] Creatinine [Mass/Vol] 1.98 mg/dL High 0.72-1.25 [facility] Comment on above: Performed By: #### L AB15, QQU669 ####Event Marketing Intern: LESLEE HERNANDEZ ([id number])[facility] ([facility])[address] [place] [address] [place] GLOMERULAR FILTRATION RATE ML/MIN/1.73 SQ M.PREDICTED 41.4 mL/min/1.73m*2 Low >60.0 [facility] Comment on above: Result Comment: Calc ulation based on the Chronic Kidney Disease Epidemiology Collaboration (CKD-EPI) equation refit without adjustment for race Performed By: #### L AB15, [id number] ####Event Marketing Intern: LESLEE HERNANDEZ ([id number])[facility] ([facility])[address] Glucose [Mass/Vol] 107 mg/dL High 74-100 [facility] Comment on above: Performed By: #### L AB15, [id number] ####Event Marketing Intern: LESLEE HERNANDEZ ([id number])[facility] ([facility])[address] Potassium [Moles/Vol] 4.4 mmol/L Normal 3.5-5.1 [facility] Comment on above: Result Comment: [facility] potassium values may be up to 0.5 mmol/L lower than serum values. Performed By: #### L AB15, [id number] ####Event Marketing Intern: LESLEE HERNANDEZ ([phone])[facility] ([facility])[address] [place] [address] [place] Sodium [Moles/Vol] 138 mmol/L Normal 136-145 [facility] Comment on above: Performed By: #### L AB15, [id number] ####Event Marketing Intern: LESLEE HERNANDEZ ([id number])[facility] ([facility])[address] [place] [address] [place] Urea nitrogen [Mass/Vol] 37 mg/dL High 8-21 [facility] Comment on above: Performed By: #### L AB15, [id number] ####Event Marketing Intern: LESLEE HERNANDEZ ([id number])[facility] ([facility])[address] Basic metabolic 1998 panelon 07-24-2024 Anion gap [Moles/Vol] 10 mmol/L 3 - 13 mmol/L [facility] Calcium [Mass/Vol] 8.5 mg/dL 8.4 - 10. 2 mg/dL [facility] Chloride [Moles/Vol] 108 mmol/L High 98 - 10 7 mmol/L [facility] CO2 [Moles/Vol] 20 mmol/L Low 22 - 29 mmol/L [facility] Creatinine [Mass/Vol] 2.19 mg/dL High 0.72 - 1.25 mg/dL [facility] GFR/1.73 sq M.predicted (S/P/Bld) [Vol rate/Area] 36.7 mL/min Low - PINF [facility] Comment on above: Calculation based on the Chronic Kidney Disease Epidemiology Collaboration (CKD-EPI) equation refit without adjustment for race Glucose [Mass/Vol] 108 mg/dL High 74 - 100 mg/dL [facility] Interpretation and review of laboratory results Abnormal [facility] Potassium [Moles/Vol] 4.3 mmol/L 3.5 - 5.1 mmol/L [facility] Comment on above: Plasma potassium heiid ues may be up to 0.5 mmol/L lower than serum values. Sodium [Moles/Vol] 138 mmol/L 136 - 145 mmol/L [facility] Urea nitrogen [Mass/Vol] 38 mg/dL High 8 - 21 mg/dL [facility] Anion gap [Moles/Vol] 12 mmol/L 3 - 13 mmol/L [facility] [facility] Calcium [Mass/Vol] 8.3 mg/dL Low 8.4 - 10. 2 mg/dL [facility] Chloride [Moles/Vol] 107 mmol/L 98 - 10 7 mmol/L [facility] CO2 [Moles/Vol] 19 mmol/L Low 22 - 29 mmol/L [facility] Creatinine [Mass/Vol] 1.98 mg/dL High 0.72 - 1.25 mg/dL [facility] GFR/1.73 sq M.predicted (S/P/Bld) [Vol rate/Area] 41.4 mL/min Low - PINF [facility] Comment on above: Calculation based on the Chronic Kidney Disease Epidemiology Collaboration (CKD-EPI) equation refit without adjustment for race Glucose [Mass/Vol] 107 mg/dL High 74 - 100 mg/dL [facility] Interpretation and review of laboratory results Abnormal [facility] Potassium [Moles/Vol] 4.4 mmol/L 3.5 - 5.1 mmol/L [facility] Comment on above: Plasma potassium heidi ues may be up to 0.5 mmol/L lower than serum values. Sodium [Moles/Vol] 138 mmol/L 136 - 145 mmol/L [facility] Urea nitrogen [Mass/Vol] 37 mg/dL High 8 - 21 mg/dL [facility] CBC W Auto Differential pane l (Bld)on 07-24-2024 Basophils (Bld) [#/Vol] 0 10*3/uL 0.0 - 0.2 10*3/uL [facility] Basophils/100 WBC (Bld) 0.5 % 0.0 - 2.0 % [facility] Eosinophils (Bld) [#/Vol] 0 10*3/uL 0.0 - 0.5 10*3/uL [facility] Eosinophils/100 WBC (Bld) 0.5 % 0.0 - 6.0 % [facility] Erythrocyte distribution width (RBC) [Ratio] 13.9 % 11.5 - 15.0 % [facility] Hematocrit (Bld) [Volume fraction] 45 % 40.0 - 52.0 % [facility] Hemoglobin (Bld) [Mass/Vol] 14.4 g/dL 13.0 - 18.0 g/dL [facility] Immature granulocytes (Bld) [#/Vol] 0 10*3/uL NINF - 0.1 10*3/uL [facility] Immature granulocytes/100 WBC (Bld) 0.1 % 0.0 - 2.0 % [facility] Interpretation and review of laboratory results Abnormal [facility] Lymphocytes (Bld) [#/Vol] 2.5 10*3/uL 1.0 - 4.3 10*3/uL [facility] Lymphocytes/100 WBC (Bld) 33.2 % 15.0 - 45.0 % [facility] MCH (RBC) [Entitic mass] 33.2 pg 26.0 - 34.0 pg [facility] MCHC (RBC) [Mass/Vol] 32 % 30.5 - 36.0 % [facility] MCV (RBC) [Entitic vol] 103.7 fL High 77.0 - 99.0 fL [facility] Monocytes (Bld) [#/Vol] 0.5 10*3/uL 0.0 - 0.9 10*3/uL [facility] Monocytes/100 WBC (Bld) 7.3 % 5.0 - 13.0 % [facility] Neutrophils (Bld) [#/Vol] 4.3 10*3/uL 1.8 - 7.5 10*3/uL [facility] Neutrophils/100 WBC (Bld) 58.4 % 38.0 - 82.0 % [facility] Nucleated RBC/100 WBC (Bld) [Ratio] 0 % [facility] Platelet mean volume (Bld) [Entitic vol] 9.6 fL 9.0 - 12.7 fL [facility] Platelets (Bld) [#/Vol] 225 10*3/uL 140 - 440 10*3/uL [facility] RBC (Bld) [#/Vol] 4.34 10*6/uL Low 4.40 - 5.9 0 10*6/uL [facility] WBC (Bld) [#/Vol] 7.4 10*3/uL 3.6 - 10.7 10*3/uL [facility] CBC WITH AUTO DIFFERENTIALon 07-24-2024 Basophils (Bld) [#/Vol] 0.0 10*3/uL Normal 0.0-0.2 [facility] Comment on above: Performed By: #### L [id number] ####Event Marketing Intern: LESLEE HERNANDEZ ([phone])[facility] ([facility])[address] [place] [address] Basophils/100 WBC (Bld) 0.5 % Normal 0.0-2.0 [facility] Comment on above: Performed By: #### L [id number] ####Event Marketing Intern: LESLEE HERNANDEZ ([id number])[facility])[address] [place] [address] Eosinophils (Bld) [#/Vol] 0.0 10*3/uL Normal 0.0-0.5 [facility] Comment on above: Performed By: #### L [id number] ####Event Marketing Intern: LESLEE HERNANDEZ ([phone])[facility] ([facility])[address] Eosinophils/100 WBC (Bld) 0.5 % Normal 0.0-6.0 [facility] Comment on above: Performed By: #### L [id number] ####Event Marketing Intern: LESLEE HERNANDEZ ([id number])[facility])[address] Erythrocyte distribution width (RBC) [Ratio] 13.9 % Normal 11.5-15.0 [facility] Comment on above: Performed By: #### L [id number] ####Event Marketing Intern: LESLEE HERNANDEZ ([id number])[facility] ([facility])[address] [place] [address] Hematocrit (Bld) [Volume fraction] 45.0 % Normal 40.0-52.0 [facility] Comment on above: Performed By: #### L [id number] ####Event Marketing Intern: LESLEE HERNANDEZ ([id number])[facility])[address] Hemoglobin (Bld) [Mass/Vol] 14.4 g/dL Normal 13.0-18.0 [facility] Comment on above: Performed By: #### L [id number] ####Event Marketing Intern: LESLEE HERNANDEZ ([id number])[facility])[address] IMMATURE GRANS % 0.1 % Normal 0.0-2.0 [facility] Comment on above: Performed By: #### L [id number] ####Event Marketing Intern: LESLEE HERNANDEZ ([id number])[facility])[address] IMMATURE GRANS ABSOLUTE 0.0 10*3/uL Normal <0.1 [facility] Comment on above: Performed By: #### L [id number] ####Event Marketing Intern: LESLEE HERNANDEZ ([id number])[facility] ([facility])[address] Lymphocytes (Bld) [#/Vol] 2.5 10*3/uL Normal 1.0-4.3 [facility] Comment on above: Performed By: #### L [id number] ####Event Marketing Intern: LESLEE MCNEILLRAMON ([phone])[facility] ([facility])[address] Lymphocytes/100 WBC (Bld) 33.2 % Normal 15.0-45.0 [facility] Comment on above: Performed By: #### L [id number] ####Event Marketing Intern: LESLEE TURKTYRONE ([id number])[facility] ([facility])[address] MCH (RBC) [Entitic mass] 33.2 pg Normal 26.0-34.0 [facility] Comment on above: Performed By: #### L [id number] ####Event Marketing Intern: LESLEE TURKTYRONE ([id number])[facility] ([facility])[address] MCHC 32.0 % Normal 30.5-36.0 [facility] Comment on above: Performed By: #### L [id number] ####Event Marketing Intern: LESLEE HERNANDEZ ([id number])[facility] ([facility])[address] MCV (RBC) [Entitic vol] 103.7 fL High 77.0-99.0 [facility] Comment on above: Performed By: #### L [id number] ####Event Marketing Intern: LESLEE HERNANDEZ ([id number])[facility] ([facility])[address] Monocytes (Bld) [#/Vol] 0.5 10*3/uL Normal 0.0-0.9 [facility] Comment on above: Performed By: #### L [id number] ####Event Marketing Intern: LESLEE HERNANDEZ ([id number])[facility] ([facility])[address] Monocytes/100 WBC (Bld) 7.3 % Normal 5.0-13.0 [facility] Comment on above: Performed By: #### L [id number] ####Event Marketing Intern: LESLEE HERNANDEZ ([id number])[facility] ([facility])[address] NEUTROPHILS ABSOLUTE 4.3 10*3/uL Normal 1.8-7.5 [facility] Comment on above: Performed By: #### L [id number] ####Event Marketing Intern: LESLEE HERNANDEZ ([id number])[facility] ([facility])[address] Neutrophils/100 WBC (Bld) 58.4 % Normal 38.0-82.0 [facility] Comment on above: Performed By: #### L [id number] ####Event Marketing Intern: LESLEE HERNANDEZ ([id number])[facility] ([facility])[address] NRBC 0.0 /100 WBCs Normal 0.0-2.0 [facility] Comment on above: Performed By: #### L [id number] ####Event Marketing Intern: LESLEE HERNANDEZ ([phone])[facility] [place] ([facility])[address] Platelet mean volume (Bld) [Entitic vol] 9.6 fL Normal 9.0-12.7 [facility] Comment on above: Performed By: #### L [id number] ####Event Marketing Intern: LESLEE HERNANDEZ ([id number])[facility] ([facility])[address] [place] [address] [place] Platelets (Bld) [#/Vol] 225 10*3/uL Normal 140-440 [facility] Comment on above: Performed By: #### L [id number] ####Event Marketing Intern: LESLEE HERNANDEZ ([id number])[facility] ([facility])[address] RBC (Bld) [#/Vol] 4.34 10*6/uL Low 4.40-5.90 [facility] Comment on above: Performed By: #### L [id number] ####Event Marketing Intern: LESLEE HERNANDEZ ([id number])[facility] ([facility])[address] WBC (Bld) [#/Vol] 7.4 10*3/uL Normal 3.6-10.7 [facility] Comment on above: Performed By: #### L [id number] ####Event Marketing Intern: LESLEE HERNANDEZ ([id number])[facility] ([facility])[address] [place] [address] Consulton 07-24-2024 Consult Normal [facility] Laboratory - Chemistry and C hemistry - challengeon 07-24-2024 Magnesium [Mass/Vol] 2.1 mg/dL 1.6 - 2 .6 mg/dL [facility] Magnesium [Mass/Vol] 2 mg/dL 1.6 - 2 .6 mg/dL [facility] TSH Qn 3.18 m[IU]/L [facility] MAGNESIUMon 07-24-2024 Magnesium [Mass/Vol] 2.1 mg/dL Normal 1.6-2.6 [facility] Comment on above: Result Comment: ORDE R COMMENTS:Higher values can be expected in females during menses. Performed By: #### L [id number], [id number], [id number] ####Event Marketing Intern: LESLEE HERNANDEZ ([id number])[facility] ([facility])[address] [place] [address] Magnesium [Mass/Vol] 2.0 mg/dL Normal 1.6-2.6 [facility] Comment on above: Result Comment: ORDE R COMMENTS:Higher values can be expected in females during menses. Performed By: #### L [id number], [id number] ####Event Marketing Intern: LESLEE HERNANDEZ ([id number])[facility] ([facility])[address] Magnesium [Mass/Vol]on 07-24 Interpretation and review of laboratory results Normal [facility] Higher values can be expected in females during menses. [facility] Interpretation and review of laboratory results Normal [facility] Higher values can be expected in females during menses. [facility] NT PRO BNPon 07-24-2024 Natriuretic peptide B (Bld) [Mass/Vol] 92314 pg/mL High <125 [facility] Comment on above: Performed By: #### L AB15, [id number], [id number] ####Event Marketing Intern: LESLEE HERNANDEZ ([id number])[facility] ([facility])[address] Natriuretic peptide B [Mass/ Vol]on 07-24-2024 Interpretation and review of laboratory results Abnormal [facility] Natriuretic peptide B (Bld) [Mass/Vol] 16838 pg/mL High NINF - 125 pg/mL [facility] No Panel Informationon 07-24 [facility] 2h Troponin HS (Serial 2nd Troponin) 30 ng/L NINF - 35 ng/L [facility] Interpretation and review of laboratory results Normal [facility] Progress Noteon 07-24-2024 Progress Note Normal [facility] TSH Qnon 07-24-2024 Interpretation and review of laboratory results Normal [facility] 36on 07-23-2024 36 Pt is now scheduled to be seen in the [facility] CHF clinic next week 07/28/2024 at 9:30 am. I left another message asking that he hold Entresto until seen in the CHF clinic and continue lasix. Normal [facility] 36 LM for pt that they are seeing Dr Astudillo on 07/28/2024 @ 9:30a Normal [facility] 36 Patient will need scheduled for a Follow up with heart failure clinic FAYE per Yulissa. Please call patient to schedule. Normal [facility] 36 Normal [facility] BASIC METABOLIC PANELon 07-01 Anion gap [Moles/Vol] 15 mmol/L High 3-13 [facility] Comment on above: Performed By: #### L [id number], LAB15, [id number] ####Event Marketing Intern: LESLEE HERNANDEZ ([id number])[facility] ([facility])[address] Calcium [Mass/Vol] 9.1 mg/dL Normal 8.4-10.2 [facility] Comment on above: Performed By: #### L [id number], LAB15, [id number] ####Event Marketing Intern: LESLEE HERNANDEZ ([id number])[facility] ([facility])[address] Chloride [Moles/Vol] 106 mmol/L Normal 98-107 [facility] Comment on above: Performed By: #### L [id number], LAB15, [id number] ####Event Marketing Intern: LESLEE HERNANDEZ ([id number])[facility] ([facility])[address] CO2 [Moles/Vol] 19 mmol/L Low 22-29 [facility] Comment on above: Performed By: #### L AB106, LAB15, [id number] ####Event Marketing Intern: LESLEE HERNANDEZ ([id number])[facility] ([facility])[address] Creatinine [Mass/Vol] 2.24 mg/dL High 0.72-1.25 [facility] Comment on above: Performed By: #### L AB106, LAB15, [id number] ####Event Marketing Intern: LESLEE HERNANDEZ ([id number])[facility] ([facility])[address] GLOMERULAR FILTRATION RATE ML/MIN/1.73 SQ M.PREDICTED 35.7 mL/min/1.73m*2 Low >60.0 [facility] Comment on above: Result Comment: Calc ulation based on the Chronic Kidney Disease Epidemiology Collaboration (CKD-EPI) equation refit without adjustment for race Performed By: #### L AB106, LAB15, [id number] ####Event Marketing Intern: LESLEE HERNANDEZ ([id number])[facility] ([facility])[address] Glucose [Mass/Vol] 102 mg/dL High 74-100 [facility] Comment on above: Performed By: #### L AB106, LAB15, [id number] ####Event Marketing Intern: LELSEE HERNANDEZ ([id number])[facility] ([facility])[address] Potassium [Moles/Vol] 4.6 mmol/L Normal 3.5-5.1 [facility] Comment on above: Result Comment: [facility] potassium values may be up to 0.5 mmol/L lower than serum values. Performed By: #### L AB106, LAB15, [id number] ####Event Marketing Intern: LESLEE HERNANDEZ ([id number])[facility] ([facility])[address] Sodium [Moles/Vol] 140 mmol/L Normal 136-145 [facility] Comment on above: Performed By: #### L AB106, LAB15, [id number] ####Event Marketing Intern: LESLEE HERNANDEZ ([id number])[facility] ([facility])[address] Urea nitrogen [Mass/Vol] 37 mg/dL High 8-21 [facility] Comment on above: Performed By: #### L AB106, LAB15, [id number] ####Event Marketing Intern: LESLEE HERNANDEZ ([id number])[facility] ([facility])[address] Basic metabolic 1998 panelon 07-23-2024 Anion gap [Moles/Vol] 15 mmol/L High 3 - 13 mmol/L [facility] Calcium [Mass/Vol] 9.1 mg/dL 8.4 - 10. 2 mg/dL [facility] Chloride [Moles/Vol] 106 mmol/L 98 - 10 7 mmol/L [facility] CO2 [Moles/Vol] 19 mmol/L Low 22 - 29 mmol/L [facility] Creatinine [Mass/Vol] 2.24 mg/dL High 0.72 - 1.25 mg/dL [facility] GFR/1.73 sq M.predicted (S/P/Bld) [Vol rate/Area] 35.7 mL/min Low - PINF [facility] Comment on above: Calculation based on the Chronic Kidney Disease Epidemiology Collaboration (CKD-EPI) equation refit without adjustment for race Glucose [Mass/Vol] 102 mg/dL High 74 - 100 mg/dL [facility] Interpretation and review of laboratory results Abnormal [facility] Potassium [Moles/Vol] 4.6 mmol/L 3.5 - 5.1 mmol/L [facility] Comment on above: Plasma potassium heidi ues may be up to 0.5 mmol/L lower than serum values. Sodium [Moles/Vol] 140 mmol/L 136 - 145 mmol/L [facility] Urea nitrogen [Mass/Vol] 37 mg/dL High 8 - 21 mg/dL [facility] CBC W Auto Differential pane l (Bld)on 07-23-2024 Basophils (Bld) [#/Vol] 0 10*3/uL 0.0 - 0.2 10*3/uL [facility] Basophils/100 WBC (Bld) 0.1 % 0.0 - 2.0 % [facility] Eosinophils (Bld) [#/Vol] 0 10*3/uL 0.0 - 0.5 10*3/uL [facility] Eosinophils/100 WBC (Bld) 0.1 % 0.0 - 6.0 % [facility] Erythrocyte distribution width (RBC) [Ratio] 13.8 % 11.5 - 15.0 % [facility] Hematocrit (Bld) [Volume fraction] 46.5 % 40.0 - 52.0 % [facility] Hemoglobin (Bld) [Mass/Vol] 15.2 g/dL 13.0 - 18.0 g/dL [facility] Immature granulocytes (Bld) [#/Vol] 0 10*3/uL NINF - 0.1 10*3/uL [facility] Immature granulocytes/100 WBC (Bld) 0.3 % 0.0 - 2.0 % [facility] Interpretation and review of laboratory results Abnormal [facility] Lymphocytes (Bld) [#/Vol] 2.1 10*3/uL 1.0 - 4.3 10*3/uL [facility] Lymphocytes/100 WBC (Bld) 23.4 % 15.0 - 45.0 % [facility] MCH (RBC) [Entitic mass] 33.4 pg 26.0 - 34.0 pg [facility] MCHC (RBC) [Mass/Vol] 32.7 % 30.5 - 36.0 % [facility] MCV (RBC) [Entitic vol] 102.2 fL High 77.0 - 99.0 fL [facility] Monocytes (Bld) [#/Vol] 0.8 10*3/uL 0.0 - 0.9 10*3/uL [facility] Monocytes/100 WBC (Bld) 8.6 % 5.0 - 13.0 % [facility] Neutrophils (Bld) [#/Vol] 5.9 10*3/uL 1.8 - 7.5 10*3/uL [facility] Neutrophils/100 WBC (Bld) 67.5 % 38.0 - 82.0 % [facility] Nucleated RBC/100 WBC (Bld) [Ratio] 0 % [facility] Platelet mean volume (Bld) [Entitic vol] 9.5 fL 9.0 - 12.7 fL [facility] Platelets (Bld) [#/Vol] 255 10*3/uL 140 - 440 10*3/uL [facility] RBC (Bld) [#/Vol] 4.55 10*6/uL 4.40 - 5.9 0 10*6/uL [facility] WBC (Bld) [#/Vol] 8.8 10*3/uL 3.6 - 10.7 10*3/uL [facility] CBC WITH AUTO DIFFERENTIALon 07-23-2024 Basophils (Bld) [#/Vol] 0.0 10*3/uL Normal 0.0-0.2 [facility] Comment on above: Performed By: #### L [id number] ####Event Marketing Intern: LESLEE HERNANDEZ ([id number])[facility] ([address] Basophils/100 WBC (Bld) 0.1 % Normal 0.0-2.0 [facility] Comment on above: Performed By: #### L [id number] ####Event Marketing Intern: LESLEE HERNANDEZ ([id number])[facility] ([facility])[address] Eosinophils (Bld) [#/Vol] 0.0 10*3/uL Normal 0.0-0.5 [facility] Comment on above: Performed By: #### L [id number] ####Event Marketing Intern: LESLEE HERNANDEZ ([id number])[facility] ([facility])[address] Eosinophils/100 WBC (Bld) 0.1 % Normal 0.0-6.0 [facility] Comment on above: Performed By: #### L [id number] ####Event Marketing Intern: LESLEE HERNANDEZ ([id number])[facility] ([facility])[address] Erythrocyte distribution width (RBC) [Ratio] 13.8 % Normal 11.5-15.0 [facility] Comment on above: Performed By: #### L [id number] ####Event Marketing Intern: LESLEE HERNANDEZ ([id number])[facility] ([facility])[address] [place] [address] Hematocrit (Bld) [Volume fraction] 46.5 % Normal 40.0-52.0 [facility] Comment on above: Performed By: #### L [id number] ####Event Marketing Intern: LESLEE HERNANDEZ ([id number])[facility] ([facility])[address] [place] [address] Hemoglobin (Bld) [Mass/Vol] 15.2 g/dL Normal 13.0-18.0 [facility] Comment on above: Performed By: #### L [id number] ####Event Marketing Intern: LESLEE HERNANDEZ ([id number])[facility] ([facility])[address] IMMATURE GRANS % 0.3 % Normal 0.0-2.0 [facility] Comment on above: Performed By: #### L [id number] ####Event Marketing Intern: LESLEE HERNANDEZ ([id number])[facility] [place] ([facility])[address] IMMATURE GRANS ABSOLUTE 0.0 10*3/uL Normal <0.1 [facility] Comment on above: Performed By: #### L [id number] ####Event Marketing Intern: LESLEE HERNANDEZ ([id number])[facility] [place] ([facility])[address] Lymphocytes (Bld) [#/Vol] 2.1 10*3/uL Normal 1.0-4.3 [facility] Comment on above: Performed By: #### L [id number] ####Event Marketing Intern: LESLEE HERNANDEZ ([id number])[facility] [place] ([facility])[address] Lymphocytes/100 WBC (Bld) 23.4 % Normal 15.0-45.0 [facility] Comment on above: Performed By: #### L [id number] ####Event Marketing Intern: LESLEE TURKTYRONE ([id number])[facility] (SB[facility])[address] MCH (RBC) [Entitic mass] 33.4 pg Normal 26.0-34.0 [facility] Comment on above: Performed By: #### L [id number] ####Event Marketing Intern: LESLEE HERNANDEZ ([phone])[facility] ([facility])[address] MCHC 32.7 % Normal 30.5-36.0 [facility] Comment on above: Performed By: #### L [id number] ####Event Marketing Intern: LESLEE HERNANDEZ ([id number])[facility] [place] ([facility])[address] MCV (RBC) [Entitic vol] 102.2 fL High 77.0-99.0 [facility] Comment on above: Performed By: #### L [id number] ####Event Marketing Intern: LESLEE HERNANDEZ ([phone])[facility] ([facility])[address] Monocytes (Bld) [#/Vol] 0.8 10*3/uL Normal 0.0-0.9 [facility] Comment on above: Performed By: #### L [id number] ####Event Marketing Intern: LESLEE HERNANDEZ ([phone])[facility] [place] ([facility])[address] Monocytes/100 WBC (Bld) 8.6 % Normal 5.0-13.0 [facility] Comment on above: Performed By: #### L [id number] ####Event Marketing Intern: LESLEE HERNANDEZ ([id number])[facility] [place] ([facility])[address] NEUTROPHILS ABSOLUTE 5.9 10*3/uL Normal 1.8-7.5 [facility] Comment on above: Performed By: #### L [id number] ####Event Marketing Intern: LESLEE HERNANDEZ ([id number])[facility] [place] ([facility])[address] Neutrophils/100 WBC (Bld) 67.5 % Normal 38.0-82.0 [facility] Comment on above: Performed By: #### L [id number] ####Event Marketing Intern: LESLEE HERNANDEZ ([phone])[facility] [place] (SB[place])[address] NRBC 0.0 /100 WBCs Normal 0.0-2.0 [facility] Comment on above: Performed By: #### L [id number] ####Event Marketing Intern: LESLEE HERNANDEZ ([id number])[facility] [place] (SB[facility]AB)[address] Platelet mean volume (Bld) [Entitic vol] 9.5 fL Normal 9.0-12.7 [facility] Comment on above: Performed By: #### L [id number] ####Event Marketing Intern: LESLEE HERNANDEZ ([id number])[facility] [place] (SB[facility])[address] Platelets (Bld) [#/Vol] 255 10*3/uL Normal 140-440 [facility] Comment on above: Performed By: #### L [id number] ####Event Marketing Intern: LESLEE HERNANDEZ ([phone])[facility] [place] (SBHLAB)[address] RBC (Bld) [#/Vol] 4.55 10*6/uL Normal 4.40-5.90 [facility] Comment on above: Performed By: #### L [id number] ####Event Marketing Intern: LESLEE HERNANDEZ ([id number])[facility] [place] (SBHLAB)[address] [place] [address] WBC (Bld) [#/Vol] 8.8 10*3/uL Normal 3.6-10.7 [facility] Comment on above: Performed By: #### L [id number] ####Event Marketing Intern: LESLEE HERNANDEZ ([id number])[facility] [place] (SBHLAB)[address] [place] [address] ECG 12-LEADon 07-23-2024 ECG 12-LEAD IMPRESSION: Sinus tachycardia Anterior infarct, old Electronically Signed On 07-23-2024 21:59:14 EST by Bertha Pichardo Normal [facility] ED Nursing Noteon 07-23-2024 ED Nursing Note compressor technician called. Normal [facility] ED Nursing Note Normal [facility] ED Provider Noteon ED Provider Note Normal [facility] HIGH SENSITIVITY TROPONIN, S ERIAL BASELINEon 07-23-2024 TROPONIN HIGH SENSITIVITY BASELINE 33 ng/L Normal <=35 [facility] Comment on above: Performed By: #### L [id number], LAB15, [id number] ####Event Marketing Intern: LESLEE HERNANDEZ ([id number])[facility] [place] (SBHLAB)[address] HIGH SENSITIVITY TROPONIN, S ERIAL, SECOND TESTon 07-23-2024 TROPONIN HS, SERIAL REFLEX, TEST TWO 30 ng/L Normal <=35 [facility] Comment on above: Performed By: #### L [id number], [id number] ####Event Marketing Intern: LESLEE HERNANDEZ ([id number])[facility] (SBHLAB)[address] NT PRO BNPon 07-23-2024 Natriuretic peptide B (Bld) [Mass/Vol] 70293 pg/mL High <125 [facility] Comment on above: Performed By: #### L AB106, LAB15, [id number] ####Event Marketing Intern: LESLEE HERNANDEZ ([id number])[facility] (SBHLAB)[address] Natriuretic peptide B [Mass/ Vol]on 07-23-2024 Interpretation and review of laboratory results Abnormal [facility] Natriuretic peptide B (Bld) [Mass/Vol] 62399 pg/mL High NINF - 125 pg/mL [facility] No Panel Informationon 07-23 Interpretation and review of laboratory results Normal [facility] Troponin HS Serial Baseline 33 ng/L NINF - 35 ng/L [facility] P [place] -29 degrees [facility] NM Interval 122 ms [facility] QRS [place] 116 degrees [facility] QRSD Interval 154 ms [facility] Interval 369 ms [facility] QTC Interval 520 ms [facility] T Wave [place] -29 degrees [facility] Sinus tachycardia Anterior infarct, old Electronically Signed On 07-23-2024 21:59:14 EST by Bertha Newsome D O - 07/23/2024 IMPRESSION: Sinus tachycardia Anterior infarct, old Electronically Signed On 07-23-2024 21:59:14 EST by Bertha Pichardo [facility] THYROID STIMULATING HORMONEo n 07-23-2024 THYROID STIMULATING HORMONE 3.18 uIU/mL Normal 0.35-4.94 [facility] Comment on above: Performed By: #### L [id number], [id number] ####Event Marketing Intern: LESLEE HERNANDEZ ([id number])[facility] [place] (SBHLAB)[address] [place] [address] Vital signson 07-23-2024 Heart rate 119 /min bpm [facility] XR Chest Single viewon 07-23 Stable cardiomegaly. No acute process. Report Dictated on Electronically Signed By: Juan Pereira MD Electronically Signed Date/Time: 07/23/2024 8:20 PM EST [facility] [...] mediastinal contour. BONES/JOINTS: Unremarkable. No acute fracture. [facility] Juan Pereira MD - 07/23/2024 Patient [...] Electronically Signed Date/Time: 07/23/2024 8:20 PM EST [facility] Radiology Study observation (narrative) [facility] XR Chest Single viewOrdered By: Juan Pereira on 07-23-2024 [facility] Work Phone: Progress Noteon 07-21-2024 Progress Note Normal [facility] 36on 07-20-2024 36 Unable to contact patient X2 Normal [facility] 36on 07-19-2024 36 Normal [facility] 36on 07-16-2024 36 Normal [facility] COMPREHENSIVE METABOLIC PANE Ming 07-16-2024 Albumin [Mass/Vol] 2.3 g/dL Low 3.5-5.0 [facility] Comment on above: Performed By: #### L AB103, LAB17 ####Event Marketing Intern: LSELEE HERNANDEZ ([id number])[facility] [place] (SB[facility])[address] ALP [Catalytic activity/Vol] 142 U/L Normal 40-150 [facility] Comment on above: Performed By: #### L AB103, LAB17 ####Event Marketing Intern: LESLEE HERNANDEZ ([id number])[facility] [place] (SBHLAB)[address] ALT [Catalytic activity/Vol] 60 U/L High <40 [facility] Comment on above: Performed By: #### L AB103, LAB17 ####Event Marketing Intern: LESLEE HERNANDEZ ([id number])[facility] [place] (SBHLAB)[address] Anion gap [Moles/Vol] 7 mmol/L Normal 3-13 [facility] Comment on above: Performed By: #### L AB103, LAB17 ####Event Marketing Intern: LESLEE HERNANDEZ ([id number])[facility] [place] (SBHLAB)[address] [place] [address] [place] AST [Catalytic activity/Vol] 56 U/L High <34 [facility] Comment on above: Result Comment: TCSi gnificant interference from hemolysis. Result integrity compromised. Interpret with caution. Performed By: #### L AB103, LAB17 ####Event Marketing Intern: LESLEE HERNANDEZ ([id number])[facility] [place] (SBHLAB)[address] Bilirubin [Mass/Vol] 0.8 mg/dL Normal <1.2 [facility] Comment on above: Performed By: #### L AB103, LAB17 ####Event Marketing Intern: LESLEE HERNANDEZ ([id number])[facility] [place] (SBHLAB)[address] Calcium [Mass/Vol] 7.0 mg/dL Low 8.4-10.2 [facility] Comment on above: Performed By: #### L AB103, LAB17 ####Event Marketing Intern: LESLEE HERNANDEZ ([id number])[facility] [place] (SBHLAB)[address] Chloride [Moles/Vol] 109 mmol/L High 98-107 [facility] Comment on above: Performed By: #### L AB103, LAB17 ####Event Marketing Intern: LESLEE HERNANDEZ ([id number])[facility]TTNEW [facility] (SBHLAB)[address] CO2 [Moles/Vol] 17 mmol/L Low 22-29 [facility] Comment on above: Performed By: #### L AB103, LAB17 ####Event Marketing Intern: LESLEE HERNANDEZ ([id number])[facility] [place] (SBHLAB)[address] Creatinine [Mass/Vol] 1.40 mg/dL High 0.72-1.25 [facility] Comment on above: Performed By: #### L AB103, LAB17 ####Event Marketing Intern: LESLEE HERNANDEZ ([id number])[facility] KNOTTNEW MEXICO [facility] L[facility]GASN (SBHLAB)[address] [place] [address] [place] GLOMERULAR FILTRATION RATE ML/MIN/1.73 SQ M.PREDICTED 62.8 mL/min/1.73m*2 Normal >60.0 [facility] Comment on above: Result Comment: Calc ulation based on the Chronic Kidney Disease Epidemiology Collaboration (CKD-EPI) equation refit without adjustment for race Performed By: #### L AB103, LAB17 ####Event Marketing Intern: LESLEE HERNANDEZ ([id number])[facility] [place] (SBHLAB)[address] Glucose [Mass/Vol] 102 mg/dL High 74-100 [facility] Comment on above: Performed By: #### L AB103, LAB17 ####Event Marketing Intern: LESLEE HERNANDEZ ([id number])[facility] [place] (SB[facility]AB)[address] Potassium [Moles/Vol] 4.8 mmol/L Normal 3.5-5.1 [facility] Comment on above: Result Comment: TCSi gnificant interference from hemolysis. Result integrity compromised. Interpret with caution. Performed By: #### L AB103, LAB17 ####Event Marketing Intern: LESLEE HERNANDEZ ([id number])[facility] [place] (SBHLAB)[address] Protein [Mass/Vol] 5.2 g/dL Low 6.4-8.3 [facility] Comment on above: Result Comment: TCPo tential interference from hemolysis Performed By: #### L AB103, LAB17 ####Event Marketing Intern: LESLEE HERNANDEZ ([id number])[facility] [place] (SB[facility])[address] Sodium [Moles/Vol] 133 mmol/L Low 136-145 [facility] Comment on above: Performed By: #### L AB103, LAB17 ####Event Marketing Intern: LESLEE HERNANDEZ ([id number])[facility] [place] (SB[facility])[address] Urea nitrogen [Mass/Vol] 27 mg/dL High 8-21 [facility] Comment on above: Performed By: #### L AB103, LAB17 ####Event Marketing Intern: LESLEE HERNANDEZ ([id number])[facility] [place] (SBHLAB)[address] Comprehensive metabolic 1998 panelon 07-16-2024 Albumin [Mass/Vol] 2.3 g/dL Low 3.5 - 5.0 g/dL [facility] ALP [Catalytic activity/Vol] 142 U/L 40 - 150 U/L [facility] ALT [Catalytic activity/Vol] 60 U/L High [facility] - 40 U/L [facility] Anion gap [Moles/Vol] 7 mmol/L 3 - 13 mmol/L [facility] AST [Catalytic activity/Vol] 56 U/L High [facility] - 34 U/L [facility] Comment on above: TC Significant interference from hemolysis. Result integrity compromised. Interpret with caution. Bilirubin [Mass/Vol] 0.8 mg/dL [facility] - 1.2 mg/dL [facility] Calcium [Mass/Vol] 7 mg/dL Low 8.4 - 10. 2 mg/dL [facility] Chloride [Moles/Vol] 109 mmol/L High 98 - 10 7 mmol/L [facility] CO2 [Moles/Vol] 17 mmol/L Low 22 - 29 mmol/L [facility] Creatinine [Mass/Vol] 1.4 mg/dL High 0.72 - 1.25 mg/dL [facility] GFR/1.73 sq M.predicted (S/P/Bld) [Vol rate/Area] 62.8 mL/min - PINF [facility] Comment on above: Calculation based on the Chronic Kidney Disease Epidemiology Collaboration (CKD-EPI) equation refit without adjustment for race Glucose [Mass/Vol] 102 mg/dL High 74 - 100 mg/dL [facility] Interpretation and review of laboratory results Abnormal [facility] Potassium [Moles/Vol] 4.8 mmol/L 3.5 - 5.1 mmol/L [facility] Comment on above: TC Significant interference from hemolysis. Result integrity compromised. Interpret with caution. Protein [Mass/Vol] 5.2 g/dL Low 6.4 - 8.3 g/dL [facility] Comment on above: TC Potential interference from hemolysis Sodium [Moles/Vol] 133 mmol/L Low 136 - 145 mmol/L [facility] Urea nitrogen [Mass/Vol] 27 mg/dL High 8 - 21 mg/dL [facility] Laboratory - Chemistry and C hemistry - challengeon 07-16-2024 Magnesium [Mass/Vol] 1.8 mg/dL 1.6 - 2 .6 mg/dL [facility] MAGNESIUMon 07-16-2024 Magnesium [Mass/Vol] 1.8 mg/dL Normal 1.6-2.6 [facility] [employer] [facility] Comment on above: Result Comment: ALEJANDRO R COMMENTS:Higher values can be expected in females during menses. Performed By: #### L AB103, LAB17 ####Event Marketing Intern: LESLEE HERNANDEZ ([phone])[facility] [place] (SBHLAB)[address] [place] [address] Magnesium [Mass/Vol]on 07-16 Interpretation and review of laboratory results Normal [facility] Higher values can be expected in females during menses. Technical Machine No Panel Informationon 07-16 [facility] Progress Noteon 07-16-2024 Progress Note Normal [facility] [employer] [facility] XR Abdomen Single viewon Few dilated loops of air-filled small bowel are noted is nonspecific and could represent ileus versus early or partial small bowel obstruction. Continued follow-up is recommended. Report Dictated on Electronically Signed By: Joel Hi MD Electronically Signed Date/Time: 07/16/2024 3:01 PM EST [facility] Patient Name: CARLO MEDINA : 1980 [...] are degenerative changes of the lumbar spine. [facility] Joel Hi MD - 07/16/2024 Patient Name: [...] Electronically Signed Date/Time: 07/16/2024 3:01 PM EST [facility] Radiology Study observation (narrative) [facility] XR Abdomen Single viewOrdere d By: Joel Hi on 07-16-2024 [facility] Work Phone: 30on 07-15-2024 30 Normal [facility] 30 Normal [facility] 30 Normal [facility] BASIC METABOLIC PANELon 06-30 Anion gap [Moles/Vol] 4 mmol/L Normal 3-13 [facility] Comment on above: Performed By: #### L AB103, [id number], LAB15 ####Event Marketing Intern: LESLEE HERNANDEZ ([id number])[facility] ([facility])[address] [place] [address] Calcium [Mass/Vol] 6.9 mg/dL Low 8.4-10.2 [facility] Comment on above: Performed By: #### L AB103, [id number], LAB15 ####Event Marketing Intern: LESLEE HERNANDEZ ([id number])[facility] (SBHLAB)[address] [place] [address] [place] Chloride [Moles/Vol] 108 mmol/L High 98-107 [facility] Comment on above: Performed By: #### L AB103, [id number], LAB15 ####Event Marketing Intern: LESLEE HERNANDEZ ([id number])[facility] (SBHLAB)[address] [place] [address] [place] CO2 [Moles/Vol] 22 mmol/L Normal 22-29 [facility] Comment on above: Performed By: #### L AB103, [id number], LAB15 ####Event Marketing Intern: LESLEE HERNANDEZ ([id number])[place] (SBHLAB)[address] Creatinine [Mass/Vol] 1.54 mg/dL High 0.72-1.25 [facility] Comment on above: Performed By: #### L AB103, EIR211, LAB15 ####Event Marketing Intern: LESLEE HERNANDEZ ([id number])[facility] BARBNEW MEXICO [facility] L[facility]N (SBHLAB)[address] GLOMERULAR FILTRATION RATE ML/MIN/1.73 SQ M.PREDICTED 56.0 mL/min/1.73m*2 Low >60.0 [facility] Comment on above: Result Comment: Calc ulation based on the Chronic Kidney Disease Epidemiology Collaboration (CKD-EPI) equation refit without adjustment for raceORDER COMMENTS:Slightly hemolyzed Performed By: #### L AB103, YSS325, LAB15 ####Event Marketing Intern: LESLEE HERNANDEZ ([id number])[facility] [place] (SBHLAB)[address] Glucose [Mass/Vol] 108 mg/dL High 74-100 [facility] Comment on above: Performed By: #### L AB103, [id number], LAB15 ####Event Marketing Intern: LESLEE HERNANDEZ ([id number])[facility] (SBHLAB)[address] Potassium [Moles/Vol] 4.5 mmol/L Normal 3.5-5.1 [facility] Comment on above: Result Comment: TCSi gnificant interference from hemolysis. Result integrity compromised. Interpret with caution. Performed By: #### L AB103, [id number], LAB15 ####Event Marketing Intern: LESLEE HERNANDEZ ([id number])[facility] (SBHLAB)[address] [place] [address] [place] Sodium [Moles/Vol] 134 mmol/L Low 136-145 [facility] Comment on above: Performed By: #### L AB103, [id number], LAB15 ####Event Marketing Intern: LESLEE HERNANDEZ ([id number])[facility] (SBHLAB)[address] Urea nitrogen [Mass/Vol] 30 mg/dL High 8-21 [facility] Comment on above: Performed By: #### L AB103, URO000, LAB15 ####Event Marketing Intern: LESLEE HERNANDEZ ([id number])[facility] (SBHLAB)[address] Basic metabolic 1998 panelon 07-15-2024 Anion gap [Moles/Vol] 4 mmol/L 3 - 13 mmol/L [facility] Calcium [Mass/Vol] 6.9 mg/dL Low 8.4 - 10. 2 mg/dL [facility] Chloride [Moles/Vol] 108 mmol/L High 98 - 10 7 mmol/L [facility] CO2 [Moles/Vol] 22 mmol/L 22 - 29 mmol/L [facility] Creatinine [Mass/Vol] 1.54 mg/dL High 0.72 - 1.25 mg/dL [facility] GFR/1.73 sq M.predicted (S/P/Bld) [Vol rate/Area] 56 mL/min Low - PINF [facility] Comment on above: Calculation based on the Chronic Kidney Disease Epidemiology Collaboration (CKD-EPI) equation refit without adjustment for race Glucose [Mass/Vol] 108 mg/dL High 74 - 100 mg/dL [facility] Interpretation and review of laboratory results Abnormal [facility] Potassium [Moles/Vol] 4.5 mmol/L 3.5 - 5.1 mmol/L [facility] Comment on above: TC Significant interference from hemolysis. Result integrity compromised. Interpret with caution. Sodium [Moles/Vol] 134 mmol/L Low 136 - 145 mmol/L [facility] Urea nitrogen [Mass/Vol] 30 mg/dL High 8 - 21 mg/dL [facility] Slightly hemolyzed [facility] CBC (HEMOGRAM)on 07-15-2024 Erythrocyte distribution width (RBC) [Ratio] 13.7 % Normal 11.5-15.0 [facility] Comment on above: Performed By: #### L AB294 ####Event Marketing Intern: LESLEE HERNANDEZ ([id number])[facility]ITAL[facility] KNOTTNEW MEXICO BEH[facility] INSTITUTE AT LAS VEGASMarguerite (SBHLAB)[address] Hematocrit (Bld) [Volume fraction] 37.7 % Low 40.0-52.0 [facility] Comment on above: Performed By: #### L AB294 ####Event Marketing Intern: LESLEE HERNANDEZ ([id number])[facility] [place] (SBHLAB)[address] Hemoglobin (Bld) [Mass/Vol] 12.2 g/dL Low 13.0-18.0 [facility] Comment on above: Performed By: #### L AB294 ####Event Marketing Intern: LESLEE HERNANDEZ ([id number])[facility] [place] (SBAB)[address] MCH (RBC) [Entitic mass] 33.7 pg Normal 26.0-34.0 [facility] Comment on above: Performed By: #### L AB294 ####Event Marketing Intern: LESLEE HERNANDEZ ([id number])[facility] [place] (SBHLAB)[address] MCHC 32.4 % Normal 30.5-36.0 [facility] Comment on above: Performed By: #### L AB294 ####Event Marketing Intern: LESLEE HERNANDEZ ([id number])[facility] (SBAB)[address] MCV (RBC) [Entitic vol] 104.1 fL High 77.0-99.0 [facility] Comment on above: Performed By: #### L AB294 ####Event Marketing Intern: LESLEE HERNANDEZ ([id number])[facility] (SBHLAB)[address] Platelet mean volume (Bld) [Entitic vol] 10.2 fL Normal 9.0-12.7 [facility] Comment on above: Performed By: #### L AB294 ####Event Marketing Intern: LESLEE [id number])[facility] [place] (SBHLAB)[address] Platelets (Bld) [#/Vol] 242 10*3/uL Normal 140-440 [facility] Comment on above: Performed By: #### L AB294 ####Event Marketing Intern: LESLEE HERNANDEZ ([id number])[facility]TB[facility] (SBHLAB)[address] RBC (Bld) [#/Vol] 3.62 10*6/uL Low 4.40-5.90 [facility] Comment on above: Performed By: #### L AB294 ####Event Marketing Intern: LESLEE HERNANDEZ ([id number])[facility]TBANNER [facility] ([facility])[address] WBC (Bld) [#/Vol] 5.5 10*3/uL Normal 3.6-10.7 [facility] Comment on above: Performed By: #### L AB294 ####Event Marketing Intern: LESLEE HERNANDEZ ([id number])[facility]ITAL[facility] ([facility])[address] CBC panel Auto (Bld)on 07-15 Erythrocyte distribution width (RBC) [Ratio] 13.7 % 11.5 - 15.0 % [facility] Hematocrit (Bld) [Volume fraction] 37.7 % Low 40.0 - 52.0 % [facility] Hemoglobin (Bld) [Mass/Vol] 12.2 g/dL Low 13.0 - 18.0 g/dL [facility] Interpretation and review of laboratory results Abnormal [facility] MCH (RBC) [Entitic mass] 33.7 pg 26.0 - 34.0 pg [facility] MCHC (RBC) [Mass/Vol] 32.4 % 30.5 - 36.0 % [facility] MCV (RBC) [Entitic vol] 104.1 fL High 77.0 - 99.0 fL [facility] Platelet mean volume (Bld) [Entitic vol] 10.2 fL 9.0 - 12.7 fL [facility] Platelets (Bld) [#/Vol] 242 10*3/uL 140 - 440 10*3/uL [facility] RBC (Bld) [#/Vol] 3.62 10*6/uL Low 4.40 - 5.9 0 10*6/uL [facility] WBC (Bld) [#/Vol] 5.5 10*3/uL 3.6 - 10.7 10*3/uL [facility] Laboratory - Chemistry and C hemistry - challengeon 07-15-2024 Magnesium [Mass/Vol] 1.7 mg/dL 1.6 - 2 .6 mg/dL [facility] MAGNESIUMon 07-15-2024 Magnesium [Mass/Vol] 1.7 mg/dL Normal 1.6-2.6 [facility] Comment on above: Result Comment: ALEJANDRO Aleman COMMENTS:Higher values can be expected in females during menses. Performed By: #### L AB103, [id number], LAB15 ####Event Marketing Intern: LESLEE HERNANDEZ ([id number])[facility] ([facility])[address] [place] [address] Magnesium [Mass/Vol]on 07-15 Interpretation and review of laboratory results Normal [facility] Higher values can be expected in females during menses. [facility] NT PRO BNPon 07-15-2024 Natriuretic peptide B (Bld) [Mass/Vol] 62843 pg/mL High <125 [facility] Comment on above: Performed By: #### L AB103, [id number], LAB15 ####Event Marketing Intern: LESLEE HERNANDEZ ([id number])[facility] ([facility])[address] [place] [address] Natriuretic peptide B [Mass/ Vol]on 07-15-2024 Interpretation and review of laboratory results Abnormal [facility] Natriuretic peptide B (Bld) [Mass/Vol] 14736 pg/mL High NINF - 125 pg/mL [facility] No Panel Informationon 07-15 [facility] Progress Noteon 07-15-2024 Progress Note Normal [facility] Progress Note Normal [facility] [facility] 30on 07-14-2024 30 Normal [facility] [id number] 07-14-2024 [id number] Normal [facility] [id number] 07-14-2024 [id number] Normal [facility] BASIC METABOLIC PANELon 06-30 Anion gap [Moles/Vol] 10 mmol/L Normal 3-13 [facility] Comment on above: Performed By: #### L AB103, LAB15, LAB20, LAB99 ####Event Marketing Intern: LESLEE HERNANDEZ ([id number])[facility] [place] ([facility])[address] Calcium [Mass/Vol] 8.3 mg/dL Low 8.4-10.2 [facility] Comment on above: Performed By: #### L AB103, LAB15, LAB20, LAB99 ####Event Marketing Intern: LESLEE HERNANDEZ ([phone])[facility] ([facility] Chloride [Moles/Vol] 104 mmol/L Normal 98-107 [facility] Comment on above: Performed By: #### L AB103, LAB15, LAB20, LAB99 ####Event Marketing Intern: LESLEE HERNANDEZ ([id number])[facility] [place] ([facility])[address] CO2 [Moles/Vol] 23 mmol/L Normal 22-29 [facility] Comment on above: Performed By: #### L AB103, LAB15, LAB20, LAB99 ####Event Marketing Intern: LESLEE HERNANDEZ ([phone])[facility] [place] ([facility])155 [place] [address] [place] Creatinine [Mass/Vol] 1.81 mg/dL High 0.72-1.25 [facility] Comment on above: Performed By: #### L AB103, LAB15, LAB20, LAB99 ####Event Marketing Intern: LESLEE HERNANDEZ ([phone])[facility] ([facility] [place] [address] [place] GLOMERULAR FILTRATION RATE ML/MIN/1.73 SQ M.PREDICTED 46.1 mL/min/1.73m*2 Low >60.0 [facility] Comment on above: Result Comment: Calc ulation based on the Chronic Kidney Disease Epidemiology Collaboration (CKD-EPI) equation refit without adjustment for race Performed By: #### L AB103, LAB15, LAB20, LAB99 ####Event Marketing Intern: LESLEE HERNANDEZ ([phone])[facility] (SBHLAB)[address] Glucose [Mass/Vol] 115 mg/dL High 74-100 [facility] Comment on above: Performed By: #### L AB103, LAB15, LAB20, LAB99 ####Event Marketing Intern: LESLEE HERNANDEZ ([phone])[facility] ([facility])[address] Potassium [Moles/Vol] 4.2 mmol/L Normal 3.5-5.1 [facility] Comment on above: Result Comment: [facility] potassium values may be up to 0.5 mmol/L lower than serum values. Performed By: #### L AB103, LAB15, LAB20, LAB99 ####Event Marketing Intern: LESLEE HERNANDEZ ([id number])[facility] ([facility] Sodium [Moles/Vol] 137 mmol/L Normal 136-145 [facility] Comment on above: Performed By: #### L AB103, LAB15, LAB20, LAB99 ####Event Marketing Intern: LESLEE HERNANDEZ ([id number])[facility] Urea nitrogen [Mass/Vol] 33 mg/dL High 8-21 [facility] Comment on above: Performed By: #### L AB103, LAB15, LAB20, LAB99 ####Event Marketing Intern: LESLEE HERNANDEZ ([phone])[facility] Basic metabolic 1998 panelon 07-14-2024 Anion gap [Moles/Vol] 10 mmol/L 3 - 13 mmol/L [facility] Calcium [Mass/Vol] 8.3 mg/dL Low 8.4 - 10. 2 mg/dL [facility] Chloride [Moles/Vol] 104 mmol/L 98 - 10 7 mmol/L [facility] CO2 [Moles/Vol] 23 mmol/L 22 - 29 mmol/L [facility] Creatinine [Mass/Vol] 1.81 mg/dL High 0.72 - 1.25 mg/dL [facility] GFR/1.73 sq M.predicted (S/P/Bld) [Vol rate/Area] 46.1 mL/min Low - PINF [facility] Comment on above: Calculation based on the Chronic Kidney Disease Epidemiology Collaboration (CKD-EPI) equation refit without adjustment for race Glucose [Mass/Vol] 115 mg/dL High 74 - 100 mg/dL [facility] Interpretation and review of laboratory results Abnormal [facility] Potassium [Moles/Vol] 4.2 mmol/L 3.5 - 5.1 mmol/L [facility] Comment on above: Plasma potassium heidi ues may be up to 0.5 mmol/L lower than serum values. Sodium [Moles/Vol] 137 mmol/L 136 - 145 mmol/L [facility] Urea nitrogen [Mass/Vol] 33 mg/dL High 8 - 21 mg/dL [facility] HEPATIC FUNCTION PANELon Albumin [Mass/Vol] 3.1 g/dL Low 3.5-5.0 [facility] Comment on above: Performed By: #### L AB103, LAB15, LAB20, LAB99 ####Event Marketing Intern: LESLEE HERNANDEZ ([id number])[facility] (SBHLAB)[address] ALP [Catalytic activity/Vol] 229 U/L High 40-150 [facility] Comment on above: Performed By: #### L AB103, LAB15, LAB20, LAB99 ####Event Marketing Intern: LESLEE HERNANDEZ ([id number])[facility] (SBHLAB)[address] ALT [Catalytic activity/Vol] 109 U/L High <40 [facility] Comment on above: Performed By: #### L AB103, LAB15, LAB20, LAB99 ####Event Marketing Intern: LESLEE MARY ([id number])[facility] (HLAB)[address] AST [Catalytic activity/Vol] 50 U/L High <34 [facility] Comment on above: Performed By: #### L AB103, LAB15, LAB20, LAB99 ####Event Marketing Intern: LESLEE MARY ([phone])[facility] Bilirubin [Mass/Vol] 1.3 mg/dL High <1.2 [facility] Comment on above: Performed By: #### L AB103, LAB15, LAB20, LAB99 ####Event Marketing Intern: LESLEE HERNANDEZ ([phone])[facility] ([facility])[address] [place] [address] Bilirubin.indirect [Mass/Vol] 0.5 mg/dL High <0.5 [facility] Comment on above: Performed By: #### L AB103, LAB15, LAB20, LAB99 ####Event Marketing Intern: LESLEE MARY ([phone])[facility] ([facility])[address] Protein [Mass/Vol] 6.4 g/dL Normal 6.4-8.3 [facility] Comment on above: Result Comment: Seru m protein values are higher than plasma values. Samples from recumbent persons are lower by up to 0.5 g/dL as compared to ambulatory persons. After 60 years values are lower by up to 0.2 g/dL. Performed By: #### L AB103, LAB15, LAB20, LAB99 ####Event Marketing Intern: LESLEE HERNANDEZ ([id number])[facility] ([facility])[address] Hepatic function 2000 panelo n 07-14-2024 Albumin [Mass/Vol] 3.1 g/dL Low 3.5 - 5.0 g/dL [facility] ALP [Catalytic activity/Vol] 229 U/L High 40 - 150 U/L [facility] ALT [Catalytic activity/Vol] 109 U/L High NINF - 40 U/L [facility] AST [Catalytic activity/Vol] 50 U/L High NINF - 34 U/L [facility] Bilirubin [Mass/Vol] 1.3 mg/dL High NINF - 1.2 mg/dL [facility] Bilirubin.conjugated [Mass/Vol] 0.5 mg/dL High NINF - 0.5 mg/dL [facility] Interpretation and review of laboratory results Abnormal [facility] Protein [Mass/Vol] 6.4 g/dL 6.4 - 8.3 g/dL [facility] Comment on above: Serum protein values are higher than plasma values. Samples from recumbent persons are lower by up to 0.5 g/dL as compared to ambulatory persons. After 60 years values are lower by up to 0.2 g/dL. LIPASEon 07-14-2024 Lipase [Catalytic activity/Vol] 27 U/L Normal <55 [facility] Comment on above: Performed By: #### L AB103, LAB15, LAB20, LAB99 ####Event Marketing Intern: LESLEE HERNANDEZ ([phone])[facility] ([facility])[address] [place] [address] Laboratory - Chemistry and C hemistry - challengeon 07-14-2024 Lipase [Catalytic activity/Vol] 27 U/L NINF - 55 U/L [facility] Magnesium [Mass/Vol] 2 mg/dL 1.6 - 2 .6 mg/dL [facility] Lipase [Catalytic activity/V ol]on 07-14-2024 Interpretation and review of laboratory results Normal [facility] MAGNESIUMon 07-14-2024 Magnesium [Mass/Vol] 2.0 mg/dL Normal 1.6-2.6 [facility] Comment on above: Result Comment: ALEJANDRO Aleman COMMENTS:Higher values can be expected in females during menses. Performed By: #### L AB103, LAB15, LAB20, LAB99 ####Event Marketing Intern: LESLEE HERNANDEZ ([id number])[facility] ([facility])[address] [place] [address] Magnesium [Mass/Vol]on 07-14 Interpretation and review of laboratory results Normal [facility] Higher values can be expected in females during menses. [facility] No Panel InformationOrdered By: Radha Parikh on 07-14-2024 P [place] 82 degrees [facility] Work Phone: NM Interval 83 ms [employer] Work Phone: [phone] QRS [place] -26 degrees [employer] Work Phone: QRSD Interval 93 ms [employer] Work Phone: [phone] QT Interval 342 ms [employer] Work Phone: QTC Interval 546 ms [employer] Work Phone: [phone] T Wave [place] 242 degrees [employer] Work Phone: [employer] Work Phone: [phone] No Panel Informationon 07-14 Radha Parikh MD - 07/14/2024 IMPRESSION: Atrial tachycardia Abnormal R-wave progression, late transition Probable LVH with secondary repol abnrm Prolonged QT interval Electronically Signed On 07-14-2024 09:33:32 EST by Radha Parikh [facility] Progress Noteon 07-14-2024 Progress Note Normal [facility] Progress Note [facility] Progress [facility] Vital signsOrdered By: Radha Parikh on 07-14-2024 Heart rate 153 /min bpm [facility] Work Phone: BASIC METABOLIC PANELon 06-30 Anion gap [Moles/Vol] 9 mmol/L Normal 3-13 [facility] Comment on above: Performed By: #### L AB103, LAB15, [id number] ####Event Marketing Intern: LESLEE HERNANDEZ ([id number])[facility] ([facility] [place] [address] Calcium [Mass/Vol] 8.1 mg/dL Low 8.4-10.2 [facility] Comment on above: Performed By: #### L AB103, LAB15, [id number] ####Event Marketing Intern: LESLEE HERNANDEZ ([phone])[facility] [place] (SBHLAB)[address] Chloride [Moles/Vol] 105 mmol/L Normal 98-107 [facility] Comment on above: Performed By: #### L AB103, LAB15, [id number] ####Event Marketing Intern: LESLEE HERNANDEZ ([phone])[facility]ITAL[facility] (SBHLAB)[address] CO2 [Moles/Vol] 21 mmol/L Low 22-29 [facility] Comment on above: Performed By: #### Pedro AB103, LAB15, [id number] ####Event Marketing Intern: LESLEE HERNANDEZ ([id number])[facility]ITAL[facility] (SBHLAB)[address] Creatinine [Mass/Vol] 1.90 mg/dL High 0.72-1.25 [facility] Comment on above: Performed By: #### L AB103, LAB15, [id number] ####Event Marketing Intern: LESLEE HERNANDEZ ([id number])[facility] [place] (SBHLAB)[address] GLOMERULAR FILTRATION RATE ML/MIN/1.73 SQ M.PREDICTED 43.5 mL/min/1.73m*2 Low >60.0 [facility] Comment on above: Result Comment: Calc ulation based on the Chronic Kidney Disease Epidemiology Collaboration (CKD-EPI) equation refit without adjustment for race Performed By: #### L AB103, LAB15, MIL138 ####Event Marketing Intern: LESLEE HERNANDEZ ([phone])[facility]ITAL[facility] (SBHLAB)[address] [place] [address] [place] Glucose [Mass/Vol] 126 mg/dL High 74-100 [facility] Comment on above: Performed By: #### L AB103, LAB15, [id number] ####Event Marketing Intern: LESLEE HERNANDEZ ([id number])[facility]ITAL[facility] ([facility])[address] [place] [address] [place] Potassium [Moles/Vol] 4.1 mmol/L Normal 3.5-5.1 [facility] Comment on above: Result Comment: [facility] potassium values may be up to 0.5 mmol/L lower than serum values. Performed By: #### L AB103, LAB15, [id number] ####Event Marketing Intern: LESLEE HERNANDEZ ([phone])[facility] (SBHLAB)[address] Sodium [Moles/Vol] 135 mmol/L Low 136-145 [facility] Comment on above: Performed By: #### L AB103, LAB15, [id number] ####Event Marketing Intern: LESLEE HERNANDEZ ([id number])[facility] (SBHLAB)[address] Urea nitrogen [Mass/Vol] 35 mg/dL High 8-21 [facility] Comment on above: Performed By: #### L AB103, LAB15, XRR295 ####Event Marketing Intern: LESLEE HERNANDEZ ([id number])[facility] (SBHLAB)[address] [place] [address] Basic metabolic 1998 panelon 07-13-2024 Anion gap [Moles/Vol] 9 mmol/L 3 - 13 mmol/L [facility] Calcium [Mass/Vol] 8.1 mg/dL Low 8.4 - 10. 2 mg/dL [facility] Chloride [Moles/Vol] 105 mmol/L 98 - 10 7 mmol/L [facility] CO2 [Moles/Vol] 21 mmol/L Low 22 - 29 mmol/L [facility] Creatinine [Mass/Vol] 1.9 mg/dL High 0.72 - 1.25 mg/dL [facility] GFR/1.73 sq M.predicted (S/P/Bld) [Vol rate/Area] 43.5 mL/min Low - PINF [facility] Comment on above: Calculation based on the Chronic Kidney Disease Epidemiology Collaboration (CKD-EPI) equation refit without adjustment for race Glucose [Mass/Vol] 126 mg/dL High 74 - 100 mg/dL [facility] Interpretation and review of laboratory results Abnormal [facility] Potassium [Moles/Vol] 4.1 mmol/L 3.5 - 5.1 mmol/L [facility] Comment on above: Plasma potassium heidi ues may be up to 0.5 mmol/L lower than serum values. Sodium [Moles/Vol] 135 mmol/L Low 136 - 145 mmol/L [facility] Urea nitrogen [Mass/Vol] 35 mg/dL High 8 - 21 mg/dL [facility] CBC (HEMOGRAM)on 07-13-2024 Erythrocyte distribution width (RBC) [Ratio] 13.9 % Normal 11.5-15.0 [facility] Comment on above: Performed By: #### L AB294 ####Event Marketing Intern: LESLEE HERNANDEZ ([id number])[facility] (SBAB)[address] [place] [address] Hematocrit (Bld) [Volume fraction] 39.7 % Low 40.0-52.0 [facility] Comment on above: Performed By: #### L AB294 ####Event Marketing Intern: LESLEE HERNANDEZ ([id number])[facility] (SBHLAB)[address] [place] [address] Hemoglobin (Bld) [Mass/Vol] 12.9 g/dL Low 13.0-18.0 [facility] Comment on above: Performed By: #### L AB294 ####Event Marketing Intern: LESLEE HERNANDEZ ([phone])[facility] (SBHLAB)[address] [place] [address] MCH (RBC) [Entitic mass] 33.2 pg Normal 26.0-34.0 [facility] Comment on above: Performed By: #### L AB294 ####Event Marketing Intern: LESLEE HERNANDEZ ([id number])[facility] (SBHLAB)[address] [place] [address] MCHC 32.5 % Normal 30.5-36.0 [facility] Comment on above: Performed By: #### L AB294 ####Event Marketing Intern: LESLEE HERNANDEZ ([phone])[facility] (SBHLAB)[address] MCV (RBC) [Entitic vol] 102.3 fL High 77.0-99.0 [facility] Comment on above: Performed By: #### L AB294 ####Event Marketing Intern: LESLEE HERNANDEZ ([phone])[facility] [place] (SBHLAB)[address] Platelet mean volume (Bld) [Entitic vol] 9.9 fL Normal 9.0-12.7 [facility] Comment on above: Performed By: #### L AB294 ####Event Marketing Intern: LESLEE HERNANDEZ ([phone])[facility] ([facility])[address] Platelets (Bld) [#/Vol] 232 10*3/uL Normal 140-440 [facility] Comment on above: Performed By: #### L AB294 ####Event Marketing Intern: LESLEE HERNANDEZ ([id number])[facility] (SB[facility])[address] RBC (Bld) [#/Vol] 3.88 10*6/uL Low 4.40-5.90 [facility] Comment on above: Performed By: #### L AB294 ####Event Marketing Intern: LESLEE HERNANDEZ ([id number])[facility] (SBHLAB)[address] WBC (Bld) [#/Vol] 6.6 10*3/uL Normal 3.6-10.7 [facility] Comment on above: Performed By: #### L AB294 ####Event Marketing Intern: LESLEE HERNANDEZ ([id number])[facility] (SB[facility])[address] CBC panel Auto (Bld)on 07-13 Erythrocyte distribution width (RBC) [Ratio] 13.9 % 11.5 - 15.0 % [facility] Hematocrit (Bld) [Volume fraction] 39.7 % Low 40.0 - 52.0 % [facility] Hemoglobin (Bld) [Mass/Vol] 12.9 g/dL Low 13.0 - 18.0 g/dL [facility] Interpretation and review of laboratory results Abnormal [facility] MCH (RBC) [Entitic mass] 33.2 pg 26.0 - 34.0 pg [facility] MCHC (RBC) [Mass/Vol] 32.5 % 30.5 - 36.0 % [facility] MCV (RBC) [Entitic vol] 102.3 fL High 77.0 - 99.0 fL [facility] Platelet mean volume (Bld) [Entitic vol] 9.9 fL 9.0 - 12.7 fL [facility] Platelets (Bld) [#/Vol] 232 10*3/uL 140 - 440 10*3/uL [facility] RBC (Bld) [#/Vol] 3.88 10*6/uL Low 4.40 - 5.9 0 10*6/uL [facility] WBC (Bld) [#/Vol] 6.6 10*3/uL 3.6 - 10.7 10*3/uL [facility] Laboratory - Chemistry and C hemistry - challengeon 07-13-2024 Magnesium [Mass/Vol] 2 mg/dL 1.6 - 2 .6 mg/dL [facility] MAGNESIUMon 07-13-2024 Magnesium [Mass/Vol] 2.0 mg/dL Normal 1.6-2.6 [facility] Comment on above: Result Comment: ALEJANDRO Aleman COMMENTS:Higher values can be expected in females during menses. Performed By: #### L AB103, LAB15, [id number] ####Event Marketing Intern: LESLEE HERNANDEZ ([id number])[facility] ([facility])[address] [place] [address] Magnesium [Mass/Vol]on 07-13 Interpretation and review of laboratory results Normal [facility] Higher values can be expected in females during menses. [facility] NT PRO BNPon 07-13-2024 Natriuretic peptide B (Bld) [Mass/Vol] 47704 pg/mL High <125 [facility] Comment on above: Performed By: #### L AB103, LAB15, [id number] ####Event Marketing Intern: LESLEE HERNANDEZ ([phone])[facility] (SBHLAB)[address] Natriuretic peptide B [Mass/ Vol]on 07-13-2024 Interpretation and review of laboratory results Abnormal [facility] Natriuretic peptide B (Bld) [Mass/Vol] 06483 pg/mL High NINF - 125 pg/mL [facility] No Panel Informationon 07-13 [facility] Nursing Noteon 07-13-2024 Nursing Note 11 beat wide complex beats-denied symptoms to this RN. Dr Jeter spoke at length to pt re: health risks with refusing intervention. Normal [facility] Progress Noteon 07-13-2024 Progress Note He developed sinus tach on tele EKG obtained 5mg of lopressor ordered He then spontaneously went back to normal rhythm before being given. He did have fluttering in his chest, all symptoms now resolved EKG of sinus tach is in epic Normal [facility] Progress Note Normal [facility] Progress Note Normal [facility] Progress Note Nutrition rescreen completed. Chart reviewed. Patient to be monitored and followed by the diet furniture technician. Normal [facility] 30on 07-12-2024 30 Normal [facility] APTTon 07-12-2024 aPTT Coag (Bld) [Time] 41.9 s High 20.0-30.5 [facility] Comment on above: Result Comment: ALEJANDRO Aleman COMMENTS:NOTE: The therapeutic time for Heparin anticoagulation, based on Xa activity inhibition, is an APTT of 46-80 seconds. Performed By: #### L AB325 ####Event Marketing Intern: LESLEE HERNANDEZ ([id number])[facility] ([facility])[address] [place] [address] aPTT Coag (Bld) [Time] 59.4 s High 20.0-30.5 [facility] Comment on above: Result Comment: ALEJANDRO Aleman COMMENTS:NOTE: The therapeutic time for Heparin anticoagulation, based on Xa activity inhibition, is an APTT of 46-80 seconds. Performed By: #### L AB325 ####Event Marketing Intern: LESLEE HERNANDEZ ([phone])[facility] (SBHLAB)[address] BASIC METABOLIC PANELon - Anion gap [Moles/Vol] 11 mmol/L Normal 3-13 [facility] Comment on above: Performed By: #### L AB15, [id number] ####Event Marketing Intern: LESLEE HERNANDEZ ([id number])[facility]ITAL[facility] (SBHLAB)[address] Calcium [Mass/Vol] 8.7 mg/dL Normal 8.4-10.2 [facility] Comment on above: Performed By: #### L AB15, [id number] ####Event Marketing Intern: LESLEE HERNANDEZ ([phone])[facility] (SBHLAB)[address] Chloride [Moles/Vol] 108 mmol/L High 98-107 [facility] Comment on above: Performed By: #### L AB15, [id number] ####Event Marketing Intern: LESLEE HERNANDEZ ([id number])[facility] [place] (SBHLAB)[address] CO2 [Moles/Vol] 22 mmol/L Normal 22-29 [facility] Comment on above: Performed By: #### L AB15, [id number] ####Event Marketing Intern: LESLEE HERNANDEZ ([id number])[facility] (SBHLAB)[address] Creatinine [Mass/Vol] 1.90 mg/dL High 0.72-1.25 [facility] Comment on above: Performed By: #### L AB15, [id number] ####Event Marketing Intern: LESLEE HERNANDEZ ([id number])[facility]ITALA BARBNEW MEXICO [facility] (SBHLAB)[address] [place] [address] [place] GLOMERULAR FILTRATION RATE ML/MIN/1.73 SQ M.PREDICTED 43.5 mL/min/1.73m*2 Low >60.0 [facility] Comment on above: Result Comment: Calc ulation based on the Chronic Kidney Disease Epidemiology Collaboration (CKD-EPI) equation refit without adjustment for race Performed By: #### L AB15, [id number] ####Event Marketing Intern: LESLEE HERNANDEZ ([id number])[facility] (SBHLAB)[address] Glucose [Mass/Vol] 124 mg/dL High 74-100 [facility] Comment on above: Performed By: #### L AB15, [id number] ####Event Marketing Intern: LESLEE HERNANDEZ ([id number])[facility] (SBHLAB)[address] Potassium [Moles/Vol] 4.5 mmol/L Normal 3.5-5.1 [facility] Comment on above: Result Comment: [facility] potassium values may be up to 0.5 mmol/L lower than serum values. Performed By: #### L AB15, [id number] ####Event Marketing Intern: LESLEE HERNANDEZ ([id number])[facility] (SBHLAB)[address] Sodium [Moles/Vol] 141 mmol/L Normal 136-145 [facility] Comment on above: Performed By: #### L AB15, [id number] ####Event Marketing Intern: LESLEE HERNANDEZ ([id number])[facility] (SBHLAB)[address] Urea nitrogen [Mass/Vol] 31 mg/dL High 8-21 [facility] Comment on above: Performed By: #### L AB15, [id number] ####Event Marketing Intern: LESLEE HERNANDEZ ([phone])[facility] (SBHLAB)[address] Basic metabolic 1998 panelon 07-12-2024 Anion gap [Moles/Vol] 11 mmol/L 3 - 13 mmol/L [facility] Calcium [Mass/Vol] 8.7 mg/dL 8.4 - 10. 2 mg/dL [facility] Chloride [Moles/Vol] 108 mmol/L High 98 - 10 7 mmol/L [facility] CO2 [Moles/Vol] 22 mmol/L 22 - 29 mmol/L [facility] Creatinine [Mass/Vol] 1.9 mg/dL High 0.72 - 1.25 mg/dL [facility] GFR/1.73 sq M.predicted (S/P/Bld) [Vol rate/Area] 43.5 mL/min Low - PINF [facility] Comment on above: Calculation based on the Chronic Kidney Disease Epidemiology Collaboration (CKD-EPI) equation refit without adjustment for race Glucose [Mass/Vol] 124 mg/dL High 74 - 100 mg/dL [facility] Interpretation and review of laboratory results Abnormal [facility] Potassium [Moles/Vol] 4.5 mmol/L 3.5 - 5.1 mmol/L [facility] Comment on above: Plasma potassium heidi ues may be up to 0.5 mmol/L lower than serum values. Sodium [Moles/Vol] 141 mmol/L 136 - 145 mmol/L [facility] Urea nitrogen [Mass/Vol] 31 mg/dL High 8 - 21 mg/dL [facility] CBC W Auto Differential pane l (Bld)Ordered By: Robreto Puckett on 07-12-2024 Basophils (Bld) [#/Vol] 0 10*3/uL 0.0 - 0.2 10*3/uL [facility] Basophils/100 WBC (Bld) 0.5 % 0.0 - 2.0 % [facility] Eosinophils (Bld) [#/Vol] 0 10*3/uL 0.0 - 0.5 10*3/uL [facility] Eosinophils/100 WBC (Bld) 0.4 % 0.0 - 6.0 % [facility] Erythrocyte distribution width (RBC) [Ratio] 14.3 % 11.5 - 15.0 % [facility] Hematocrit (Bld) [Volume fraction] 45.6 % 40.0 - 52.0 % [facility] Hemoglobin (Bld) [Mass/Vol] 14.4 g/dL 13.0 - 18.0 g/dL [facility] Immature granulocytes (Bld) [#/Vol] 0 10*3/uL NINF - 0.1 10*3/uL [facility] Immature granulocytes/100 WBC (Bld) 0.1 % 0.0 - 2.0 % [facility] Interpretation and review of laboratory results Abnormal [facility] Lymphocytes (Bld) [#/Vol] 2.7 10*3/uL 1.0 - 4.3 10*3/uL [facility] Lymphocytes/100 WBC (Bld) 32.6 % 15.0 - 45.0 % [facility] MCH (RBC) [Entitic mass] 33.2 pg 26.0 - 34.0 pg [facility] MCHC (RBC) [Mass/Vol] 31.6 % 30.5 - 36.0 % [facility] MCV (RBC) [Entitic vol] 105.1 fL High 77.0 - 99.0 fL [facility] Monocytes (Bld) [#/Vol] 0.6 10*3/uL 0.0 - 0.9 10*3/uL [facility] Monocytes/100 WBC (Bld) 7.7 % 5.0 - 13.0 % [facility] Neutrophils (Bld) [#/Vol] 4.8 10*3/uL 1.8 - 7.5 10*3/uL [facility] Neutrophils/100 WBC (Bld) 58.7 % 38.0 - 82.0 % [facility] Nucleated RBC/100 WBC (Bld) [Ratio] 0 % [facility] Platelet mean volume (Bld) [Entitic vol] 9.8 fL 9.0 - 12.7 fL [facility] Platelets (Bld) [#/Vol] 246 10*3/uL 140 - 440 10*3/uL [facility] RBC (Bld) [#/Vol] 4.34 10*6/uL Low 4.40 - 5.9 0 10*6/uL [facility] WBC (Bld) [#/Vol] 8.2 10*3/uL 3.6 - 10.7 10*3/uL [facility] CBC WITH AUTO DIFFERENTIALon 07-12-2024 Basophils (Bld) [#/Vol] 0.0 10*3/uL Normal 0.0-0.2 [facility] Comment on above: Performed By: #### L [id number] ####Event Marketing Intern: LESLEE HERNANDEZ ([phone])[facility] ([facility])[address] [place] [address] Basophils/100 WBC (Bld) 0.5 % Normal 0.0-2.0 [facility] Comment on above: Performed By: #### L [id number] ####Event Marketing Intern: LESLEE MCNEILLNinoskaTYRONE ([id number])[facility] [place] (SBHLAB)[address] Eosinophils (Bld) [#/Vol] 0.0 10*3/uL Normal 0.0-0.5 [facility] Comment on above: Performed By: #### L [id number] ####Event Marketing Intern: LESLEE TURKTYRONE ([phone])[facility] (SBHLAB)[address] Eosinophils/100 WBC (Bld) 0.4 % Normal 0.0-6.0 [facility] Comment on above: Performed By: #### L [id number] ####Event Marketing Intern: LESLEE MARY ([phone])[facility] ([facility])[address] [place] [address] Erythrocyte distribution width (RBC) [Ratio] 14.3 % Normal 11.5-15.0 [facility] Comment on above: Performed By: #### L [id number] ####Event Marketing Intern: LESLEE MARY ([phone])[facility] ([facility] [place] [address] Hematocrit (Bld) [Volume fraction] 45.6 % Normal 40.0-52.0 [facility] Comment on above: Performed By: #### L [id number] ####Event Marketing Intern: LESLEE HERNANDEZ ([phone])[facility] (SBHLAB)[address] [place] [address] Hemoglobin (Bld) [Mass/Vol] 14.4 g/dL Normal 13.0-18.0 [facility] Comment on above: Performed By: #### L [id number] ####Event Marketing Intern: LESLEE HERNANDEZ ([id number])[facility] (SBHLAB)[address] [place] [address] IMMATURE GRANS % 0.1 % Normal 0.0-2.0 [facility] Comment on above: Performed By: #### L [id number] ####Event Marketing Intern: LESLEE HERNANDEZ ([phone])[facility]ITAL[facility] BARBNEW MEX[facility] AT L[facility] VEGASMarguerite (SBHLAB)[address] IMMATURE GRANS ABSOLUTE 0.0 10*3/uL Normal <0.1 [facility] Comment on above: Performed By: #### L [id number] ####Event Marketing Intern: LESLEE TURKTYRONE ([phone])[facility]ITAL[facility] KNOTTNEW MEXICO [facility] L[facility] VEGASN (SBHLAB)[address] Lymphocytes (Bld) [#/Vol] 2.7 10*3/uL Normal 1.0-4.3 [facility] Comment on above: Performed By: #### L [id number] ####Event Marketing Intern: LESLEE HERNANDEZ ([phone])[facility] [place] (SBHLAB)[address] [place] [address] Lymphocytes/100 WBC (Bld) 32.6 % Normal 15.0-45.0 [facility] Comment on above: Performed By: #### L [id number] ####Event Marketing Intern: LESLEE HERNANDEZ ([phone])[facility] [place] (SBHLAB)[address] MCH (RBC) [Entitic mass] 33.2 pg Normal 26.0-34.0 [facility] Comment on above: Performed By: #### L [id number] ####Event Marketing Intern: LESLEE HERNANDEZ ([phone])[facility] (SBHLAB)[address] MCHC 31.6 % Normal 30.5-36.0 [facility] Comment on above: Performed By: #### L [id number] ####Event Marketing Intern: LESLEE HERNADNEZ ([phone])[facility] BARBNEW MEXICO [facility] AT L[facility] VE[facility]ASN (SBHLAB)[address] MCV (RBC) [Entitic vol] 105.1 fL High 77.0-99.0 [facility] Comment on above: Performed By: #### L [id number] ####Event Marketing Intern: LESLEE HERNANDEZ ([phone])[facility] [place] (SBHLAB)[address] Monocytes (Bld) [#/Vol] 0.6 10*3/uL Normal 0.0-0.9 [facility] Comment on above: Performed By: #### L [id number] ####Event Marketing Intern: LESLEE HERNANDEZ ([id number])[facility] [place] (SB[facility]AB)[address] Monocytes/100 WBC (Bld) 7.7 % Normal 5.0-13.0 [facility] Comment on above: Performed By: #### L [id number] ####Event Marketing Intern: LESLEE HERNANDEZ ([phone])[facility]N (SBHLAB)[address] [place] [address] NEUTROPHILS ABSOLUTE 4.8 10*3/uL Normal 1.8-7.5 [facility] Comment on above: Performed By: #### L [id number] ####Event Marketing Intern: LESLEE TURKTYRONE ([phone])[facility] [place] (SBHLAB)[address] Neutrophils/100 WBC (Bld) 58.7 % Normal 38.0-82.0 [facility] Comment on above: Performed By: #### L [id number] ####Event Marketing Intern: LESLEE HERNANDEZ ([phone])[facility] [place] (SBHLAB)[address] NRBC 0.0 /100 WBCs Normal 0.0-2.0 [facility] Comment on above: Performed By: #### L [id number] ####Event Marketing Intern: LESLEE HERNANDEZ ([phone])[facility] [place] (SBHLAB)[address] Platelet mean volume (Bld) [Entitic vol] 9.8 fL Normal 9.0-12.7 [facility] Comment on above: Performed By: #### L [id number] ####Event Marketing Intern: LESLEE HERNANDEZ ([id number])[facility] [place] (SBHLAB)[address] Platelets (Bld) [#/Vol] 246 10*3/uL Normal 140-440 [facility] Comment on above: Performed By: #### L [id number] ####Event Marketing Intern: LESLEE MARY ([phone])[facility] [place] (SBHLAB)[address] RBC (Bld) [#/Vol] 4.34 10*6/uL Low 4.40-5.90 [facility] Comment on above: Performed By: #### L [id number] ####Event Marketing Intern: LESLEE MARY ([id number])[facility] [place] (SBHLAB)[address] WBC (Bld) [#/Vol] 8.2 10*3/uL Normal 3.6-10.7 [facility] Comment on above: Performed By: #### L [id number] ####Event Marketing Intern: LESLEE MCNEILLRAMON ([phone])[facility]BNEW [facility]EX[facility]N (SBHLAB)[address] COMPREHENSIVE METABOLIC PANE Ming 07-12-2024 Albumin [Mass/Vol] 3.0 g/dL Low 3.5-5.0 [facility] Comment on above: Performed By: #### L AB103, [id number], LAB17 ####Event Marketing Intern: LESLEE HERNANDEZ ([phone])[facility] [place] (SBHLAB)[address] ALP [Catalytic activity/Vol] 181 U/L High 40-150 [facility] Comment on above: Performed By: #### L AB103, [id number], LAB17 ####Event Marketing Intern: LESLEE TURKTYRONE ([id number])[facility] [place] (SB[facility]AB)[address] ALT [Catalytic activity/Vol] 127 U/L High <40 [facility] Comment on above: Performed By: #### L AB103, [id number], LAB17 ####Event Marketing Intern: LESLEE TORRESCER ([id number])[facility] [place] (SBHLAB)[address] Anion gap [Moles/Vol] 12 mmol/L Normal 3-13 [facility] Comment on above: Performed By: #### L AB103, [id number], LAB17 ####Event Marketing Intern: LESLEE HERNANDEZ ([phone])[facility]ITAL[facility] K[facility]TNEW MEX[facility]N (SBHLAB)[address] AST [Catalytic activity/Vol] 63 U/L High <34 [facility] Comment on above: Performed By: #### L AB103, [id number], LAB17 ####Event Marketing Intern: LESLEE MCNEILLRAMON ([id number])[facility] [place] (SBHLAB)[address] Bilirubin [Mass/Vol] 2.0 mg/dL High <1.2 [facility] Comment on above: Performed By: #### L AB103, [id number], LAB17 ####Event Marketing Intern: LESLEE HERNANDEZ ([phone])[facility] (SB[facility]AB)[address] Calcium [Mass/Vol] 8.6 mg/dL Normal 8.4-10.2 [facility] Comment on above: Performed By: #### L AB103, [id number], LAB17 ####Event Marketing Intern: LESLEE HERNANDEZ ([id number])[facility]ITAL[facility]TNEW MEX[facility]N (SBHLAB)[address] [place] [address] [place] Chloride [Moles/Vol] 107 mmol/L Normal 98-107 [facility] Comment on above: Performed By: #### L AB103, CYP257, LAB17 ####Event Marketing Intern: LESLEE HERNANDEZ ([phone])[facility]ITAL[facility] [place] (SBHLAB)[address] [place] [address] [place] CO2 [Moles/Vol] 20 mmol/L Low 22-29 [facility] Comment on above: Performed By: #### L AB103, [id number], LAB17 ####Event Marketing Intern: LESLEE TORRESCER ([id number])[facility] (SBHLAB)[address] Creatinine [Mass/Vol] 1.79 mg/dL High 0.72-1.25 [facility] Comment on above: Performed By: #### L AB103, [id number], LAB17 ####Event Marketing Intern: LESLEE MCNEILLRAMON ([id number])[facility] (SBHLAB)[address] GLOMERULAR FILTRATION RATE ML/MIN/1.73 SQ M.PREDICTED 46.7 mL/min/1.73m*2 Low >60.0 [facility] Comment on above: Result Comment: Calc ulation based on the Chronic Kidney Disease Epidemiology Collaboration (CKD-EPI) equation refit without adjustment for race Performed By: #### L AB103, [id number], LAB17 ####Event Marketing Intern: LESLEE HERNANDEZ ([id number])[facility] ([facility])[address] Glucose [Mass/Vol] 104 mg/dL High 74-100 [facility] Comment on above: Performed By: #### L AB103, [id number], LAB17 ####Event Marketing Intern: LESLEE TURKTYRONE ([id number])[facility] ([facility])[address] Potassium [Moles/Vol] 4.5 mmol/L Normal 3.5-5.1 [facility] Comment on above: Result Comment: [facility] potassium values may be up to 0.5 mmol/L lower than serum values. Performed By: #### L AB103, [id number], LAB17 ####Event Marketing Intern: LESLEE HERNANDEZ ([id number])[facility] ([facility])[address] Protein [Mass/Vol] 6.0 g/dL Low 6.4-8.3 [facility] Comment on above: Performed By: #### L AB103, [id number], LAB17 ####Event Marketing Intern: LESLEEFIDELIA HERNANDEZ ([id number])[facility] [place] (SBHLAB)[address] Sodium [Moles/Vol] 139 mmol/L Normal 136-145 [facility] Comment on above: Performed By: #### L AB103, [id number], LAB17 ####Event Marketing Intern: LESLEEFIDELIA HERNANDEZ ([phone])[facility] (SBHLAB)[address] Urea nitrogen [Mass/Vol] 31 mg/dL High 8-21 [facility] Comment on above: Performed By: #### L AB103, [id number], LAB17 ####Event Marketing Intern: LESLEE HERNANDEZ ([phone])[facility] [place] (SBHLAB)[address] Comprehensive metabolic 1998 panelon 07-12-2024 Albumin [Mass/Vol] 3 g/dL Low 3.5 - 5.0 g/dL [facility] ALP [Catalytic activity/Vol] 181 U/L High 40 - 150 U/L [facility] ALT [Catalytic activity/Vol] 127 U/L High NINF - 40 U/L [facility] Anion gap [Moles/Vol] 12 mmol/L 3 - 13 mmol/L [facility] AST [Catalytic activity/Vol] 63 U/L High [facility] - 34 U/L [facility] Bilirubin [Mass/Vol] 2 mg/dL High NINF - 1.2 mg/dL [facility] Calcium [Mass/Vol] 8.6 mg/dL 8.4 - 10. 2 mg/dL [facility] Chloride [Moles/Vol] 107 mmol/L 98 - 10 7 mmol/L [facility] CO2 [Moles/Vol] 20 mmol/L Low 22 - 29 mmol/L [facility] Creatinine [Mass/Vol] 1.79 mg/dL High 0.72 - 1.25 mg/dL [facility] GFR/1.73 sq M.predicted (S/P/Bld) [Vol rate/Area] 46.7 mL/min Low - PINF [facility] Comment on above: Calculation based on the Chronic Kidney Disease Epidemiology Collaboration (CKD-EPI) equation refit without adjustment for race Glucose [Mass/Vol] 104 mg/dL High 74 - 100 mg/dL [facility] Interpretation and review of laboratory results Abnormal [facility] Potassium [Moles/Vol] 4.5 mmol/L 3.5 - 5.1 mmol/L [facility] Comment on above: Plasma potassium heidi ues may be up to 0.5 mmol/L lower than serum values. Protein [Mass/Vol] 6 g/dL Low 6.4 - 8.3 g/dL [facility] Sodium [Moles/Vol] 139 mmol/L 136 - 145 mmol/L [facility] Urea nitrogen [Mass/Vol] 31 mg/dL High 8 - 21 mg/dL [facility] Consulton 07-12-2024 Consult Normal [facility] ECG 12-LEADon 07-12-2024 ECG 12-LEAD IMPRESSION: Sinus tachycardia Left ventricular hypertrophy Nonspecific T abnormalities, lateral leads Borderline prolonged QT interval Compared to ECG 07/11/24 at 1831 No significant change Electronically Signed On 07-12-2024 06:02:51 EST by Chas Haddad Normal [facility] ECG 12-LEAD IMPRESSION: Sinus tachycardia LVH with secondary repolarization abnormality Borderline prolonged QT interval Compared to ECG 07/03/24 No significant change Electronically Signed On 07-12-2024 06:02:00 EST by Chas Haddad [facility] ED Nursing Noteon 07-12-2024 ED Nursing Note APTT drawn by venipuncture, previous specimen also drawn by venipuncture Normal [facility] HIGH SENSITIVITY TROPONIN, S ERIAL, THIRD TESTon 07-12-2024 TROPONIN HS DELTA, SECOND TO THIRD -3 ng/L Normal <=2 [facility] Comment on above: Result Comment: A tr oponin delta greater than or equal to 15 ng/L is suggestive of acute cardiac injury. Values less than 15, see clinical guidance for ED and Inpatient algorithms. Performed By: #### L [id number], [id number] ####Event Marketing Intern: LESLEE HERNANDEZ ([phone])[facility] ([facility])[address] [place] [address] TROPONIN HS, SERIAL REFLEX, TEST THREE 218 ng/L Critically high <=35 [facility] Comment on above: Performed By: #### L AB129, [id number] ####Event Marketing Intern: LESLEE HERNANDEZ ([id number])[facility] ([facility])[address] Laboratory - Chemistry and C hemistry - challengeon 07-12-2024 Magnesium [Mass/Vol] 2.1 mg/dL 1.6 - 2 .6 mg/dL [facility] Magnesium [Mass/Vol] 2.2 mg/dL 1.6 - 2 .6 mg/dL [facility] TSH Qn 0.68 m[IU]/L [facility] MAGNESIUMon 07-12-2024 Magnesium [Mass/Vol] 2.1 mg/dL Normal 1.6-2.6 [facility] Comment on above: Result Comment: ALEJANDRO R COMMENTS:Higher values can be expected in females during menses. Performed By: #### L AB103, [id number], LAB17 ####Event Marketing Intern: LESLEE HERNANDEZ ([phone])[facility] ([facility])[address] Magnesium [Mass/Vol] 2.2 mg/dL Normal 1.6-2.6 [facility] Comment on above: Result Comment: ALEJANDRO R COMMENTS:Higher values can be expected in females during menses. Performed By: #### L AB15, [id number] ####Event Marketing Intern: LESLEE HERNANDEZ ([phone])[facility] ([facility])[address] [place] [address] Magnesium [Mass/Vol]on 07-12 Interpretation and review of laboratory results Normal [facility] Higher values can be expected in females during menses. [facility] Interpretation and review of laboratory results Normal [facility] Higher values can be expected in females during menses. [facility] NT PRO BNPon 07-12-2024 Natriuretic peptide B (Bld) [Mass/Vol] 51646 pg/mL High <125 [facility] Comment on above: Performed By: #### L AB103, [id number], LAB17 ####Event Marketing Intern: LESLEE HERNANDEZ ([phone])[facility] ([facility])[address] [place] [address] [facility] Natriuretic peptide B [Mass/ Vol]on 07-12-2024 Interpretation and review of laboratory results Abnormal [facility] Natriuretic peptide B (Bld) [Mass/Vol] 72379 pg/mL High NINF - 125 pg/mL [facility] No Panel Informationon 07-12 [facility] P [place] 58 degrees [facility] NM Interval 142 ms [facility] QRS [place] -16 degrees [facility] QRSD Interval 93 ms [facility] QT Interval 364 ms [facility] QTC Interval 488 ms [facility] T Wave [place] 103 degrees [facility] Sinus tachycardia Left ventricular hypertrophy Nonspecific [...] On 07-12-2024 06:02:00 EST by Chas Haddad [facility] Interpretation and review of laboratory results Abnormal [facility] Troponin HS Delta, Second to Third -3 ng/L NINF - 2 ng/L [facility] Comment on above: A troponin delta gre ater than or equal to 15 ng/L is suggestive of acute cardiac injury. Values less than 15, see clinical guidance for ED and Inpatient algorithms. Troponin HS, Serial Third 218 ng/L Critically high NINF - 35 ng/L [facility] No Panel InformationOrdered By: Chas Haddad on 07-12-2024 P [place] 52 degrees [employer] Work Phone: NM Interval 147 ms [employer] Work Phone: QRS [place] -30 degrees [employer] Work Phone: QRSD Interval 93 ms [employer] Work Phone: QT Interval 355 ms [employer] Work Phone: QTC Interval 480 ms [employer] Work Phone: T Wave [place] 127 degrees [employer] Work Phone: [employer] Work Phone: Nursing Noteon 07-12-2024 Nursing Note Patient does not wan t to take his sodium bicarb until 2pm. Normal [facility] Progress Noteon 07-12-2024 Progress Note Normal [facility] [employer] [facility] THYROID STIMULATING HORMONEo n 07-12-2024 THYROID STIMULATING HORMONE 0.68 uIU/mL Normal 0.35-4.94 [facility] Comment on above: Performed By: #### L [id number], [id number] ####Event Marketing Intern: LESLEE HERNANDEZ ([phone])[facility] ([facility])[address] [place] [address] TSH Qnon 07-12-2024 Interpretation and review of laboratory results Normal [facility] Vital signson 07-12-2024 Heart rate 108 /min bpm [facility] Vital signsOrdered By: Clementina Haddad on 07-12-2024 Heart rate 110 /min bpm [employer] Work Phone: aPTT Coag (Bld) [Time]on aPTT Coag (PPP) [Time] 41.9 s High 20.0 - 30.5 s [facility] Interpretation and review of laboratory results Abnormal [facility] [facility] NOTE: The therapeuti c time for Heparin anticoagulation, based on Xa activity inhibition, is an APTT of 46-80 seconds. [facility] aPTT Coag (PPP) [Time] 59.4 s High 20.0 - 30.5 s [facility] Interpretation and review of laboratory results Abnormal [facility] NOTE: The therapeuti c time for Heparin anticoagulation, based on Xa activity inhibition, is an APTT of 46-80 seconds. [facility] APTTon 07-11-2024 aPTT Coag (Bld) [Time] 24.2 s Normal 20.0-30.5 [facility] Comment on above: Result Comment: ALEJANDRO Aleman COMMENTS:NOTE: The therapeutic time for Heparin anticoagulation, based on Xa activity inhibition, is an APTT of 46-80 seconds. Performed By: #### L [id number] ####Event Marketing Intern: LESLEE HERNANDEZ ([phone])[facility] ([facility])[address] BASIC METABOLIC PANELon 06-30 Anion gap [Moles/Vol] 15 mmol/L High 3-13 [facility] Comment on above: Performed By: #### L AB106, LAB15, [id number], LAB20 ####Event Marketing Intern: LESLEE HERNANDEZ ([phone])[facility] ([facility])[address] Calcium [Mass/Vol] 8.8 mg/dL Normal 8.4-10.2 [facility] Comment on above: Performed By: #### L AB106, LAB15, [id number], LAB20 ####Event Marketing Intern: LESLEE HERNANDEZ ([phone])[facility] ([facility])[address] Chloride [Moles/Vol] 106 mmol/L Normal 98-107 [facility] Comment on above: Performed By: #### L AB106, LAB15, [id number], LAB20 ####Event Marketing Intern: LESLEE HERNANDEZ ([phone])[facility] ([facility])[address] CO2 [Moles/Vol] 20 mmol/L Low 22-29 [facility] Comment on above: Performed By: #### L AB106, LAB15, [id number], LAB20 ####Event Marketing Intern: LESLEE HERNANDEZ ([phone])[facility] ([facility])[address] Creatinine [Mass/Vol] 1.70 mg/dL High 0.72-1.25 [facility] Comment on above: Performed By: #### L AB106, LAB15, [id number], LAB20 ####Event Marketing Intern: LESLEE HERNANDEZ ([id number])[facility] (SBAB)[address] GLOMERULAR FILTRATION RATE ML/MIN/1.73 SQ M.PREDICTED 49.7 mL/min/1.73m*2 Low >60.0 [facility] Comment on above: Result Comment: Calc ulation based on the Chronic Kidney Disease Epidemiology Collaboration (CKD-EPI) equation refit without adjustment for race Performed By: #### L AB106, LAB15, [id number], LAB20 ####Event Marketing Intern: LESLEE TURKTYRONE ([phone])[facility] ([facility] [place] [address] Glucose [Mass/Vol] 97 mg/dL Normal 74-100 [facility] Comment on above: Performed By: #### L AB106, LAB15, [id number], LAB20 ####Event Marketing Intern: LESLEE TURKTYRONE ([phone])[facility] Potassium [Moles/Vol] 4.6 mmol/L Normal 3.5-5.1 [facility] Comment on above: Result Comment: [facility] potassium values may be up to 0.5 mmol/L lower than serum values. Performed By: #### L AB106, LAB15, [id number], LAB20 ####Event Marketing Intern: LESLEE HERNANDEZ ([phone])[facility] Sodium [Moles/Vol] 141 mmol/L Normal 136-145 [facility] Comment on above: Performed By: #### L AB106, LAB15, [id number], LAB20 ####Event Marketing Intern: LESLEE HERNANDEZ ([phone])[facility] ([facility])[address] Urea nitrogen [Mass/Vol] 30 mg/dL High 8-21 [facility] Comment on above: Performed By: #### L AB106, LAB15, [id number], LAB20 ####Event Marketing Intern: LESLEE HERNANDEZ ([id number])[facility] ([facility])[address] Basic metabolic 1998 panelon 07-11-2024 Anion gap [Moles/Vol] 15 mmol/L High 3 - 13 mmol/L [facility] Calcium [Mass/Vol] 8.8 mg/dL 8.4 - 10. 2 mg/dL [facility] Chloride [Moles/Vol] 106 mmol/L 98 - 10 7 mmol/L [facility] CO2 [Moles/Vol] 20 mmol/L Low 22 - 29 mmol/L [facility] Creatinine [Mass/Vol] 1.7 mg/dL High 0.72 - 1.25 mg/dL [facility] GFR/1.73 sq M.predicted (S/P/Bld) [Vol rate/Area] 49.7 mL/min Low - PINF [facility] Comment on above: Calculation based on the Chronic Kidney Disease Epidemiology Collaboration (CKD-EPI) equation refit without adjustment for race Glucose [Mass/Vol] 97 mg/dL 74 - 100 mg/dL [facility] Potassium [Moles/Vol] 4.6 mmol/L 3.5 - 5.1 mmol/L [facility] Comment on above: Plasma potassium heidi ues may be up to 0.5 mmol/L lower than serum values. Sodium [Moles/Vol] 141 mmol/L 136 - 145 mmol/L [facility] Urea nitrogen [Mass/Vol] 30 mg/dL High 8 - 21 mg/dL [facility] CBC W Auto Differential pane l (Bld)on 07-11-2024 Basophils (Bld) [#/Vol] 0 10*3/uL 0.0 - 0.2 10*3/uL [facility] Basophils/100 WBC (Bld) 0.4 % 0.0 - 2.0 % [facility] Eosinophils (Bld) [#/Vol] 0 10*3/uL 0.0 - 0.5 10*3/uL [facility] Eosinophils/100 WBC (Bld) 0.2 % 0.0 - 6.0 % [facility] Erythrocyte distribution width (RBC) [Ratio] 14 % 11.5 - 15.0 % [facility] Hematocrit (Bld) [Volume fraction] 48.4 % 40.0 - 52.0 % [facility] Hemoglobin (Bld) [Mass/Vol] 15.5 g/dL 13.0 - 18.0 g/dL [facility] Immature granulocytes (Bld) [#/Vol] 0 10*3/uL NINF - 0.1 10*3/uL [facility] Immature granulocytes/100 WBC (Bld) 0.2 % 0.0 - 2.0 % [facility] Interpretation and review of laboratory results Abnormal [facility] Lymphocytes (Bld) [#/Vol] 2.4 10*3/uL 1.0 - 4.3 10*3/uL [facility] Lymphocytes/100 WBC (Bld) 28.9 % 15.0 - 45.0 % [facility] MCH (RBC) [Entitic mass] 32.9 pg 26.0 - 34.0 pg [facility] MCHC (RBC) [Mass/Vol] 32 % 30.5 - 36.0 % [facility] MCV (RBC) [Entitic vol] 102.8 fL High 77.0 - 99.0 fL [facility] Monocytes (Bld) [#/Vol] 0.6 10*3/uL 0.0 - 0.9 10*3/uL [facility] Monocytes/100 WBC (Bld) 6.5 % 5.0 - 13.0 % [facility] Neutrophils (Bld) [#/Vol] 5.4 10*3/uL 1.8 - 7.5 10*3/uL [facility] Neutrophils/100 WBC (Bld) 63.8 % 38.0 - 82.0 % [facility] Nucleated RBC/100 WBC (Bld) [Ratio] 0 % [facility] Platelet mean volume (Bld) [Entitic vol] 9.8 fL 9.0 - 12.7 fL [facility] Platelets (Bld) [#/Vol] 270 10*3/uL 140 - 440 10*3/uL [facility] RBC (Bld) [#/Vol] 4.71 10*6/uL 4.40 - 5.9 0 10*6/uL [facility] WBC (Bld) [#/Vol] 8.4 10*3/uL 3.6 - 10.7 10*3/uL [facility] CBC WITH AUTO DIFFERENTIALon 07-11-2024 Basophils (Bld) [#/Vol] 0.0 10*3/uL Normal 0.0-0.2 [facility] Comment on above: Performed By: #### L [id number] ####Event Marketing Intern: LESLEE HERNANDEZ ([phone])[facility] ([facility])[address] Basophils/100 WBC (Bld) 0.4 % Normal 0.0-2.0 [facility] Comment on above: Performed By: #### L [id number] ####Event Marketing Intern: LESLEE HERNANDEZ ([phone])[facility] ([facility])[address] Eosinophils (Bld) [#/Vol] 0.0 10*3/uL Normal 0.0-0.5 [facility] Comment on above: Performed By: #### L [id number] ####Event Marketing Intern: LESLEE HERNANDEZ ([id number])[facility] ([facility])[address] [place] [address] [place] Eosinophils/100 WBC (Bld) 0.2 % Normal 0.0-6.0 [facility] Comment on above: Performed By: #### L [id number] ####Event Marketing Intern: LESLEE HERNANDEZ ([phone])[facility] ([facility])[address] [place] [address] [place] Erythrocyte distribution width (RBC) [Ratio] 14.0 % Normal 11.5-15.0 [facility] Comment on above: Performed By: #### L [id number] ####Event Marketing Intern: LESLEE HERNANDEZ ([id number])[facility] ([facility])[address] Hematocrit (Bld) [Volume fraction] 48.4 % Normal 40.0-52.0 [facility] Comment on above: Performed By: #### L [id number] ####Event Marketing Intern: LESLEE HERNANDEZ ([phone])[facility] ([facility])[address] Hemoglobin (Bld) [Mass/Vol] 15.5 g/dL Normal 13.0-18.0 [facility] Comment on above: Performed By: #### L [id number] ####Event Marketing Intern: LESLEE HERNANDEZ ([phone])[facility] ([facility])[address] IMMATURE GRANS % 0.2 % Normal 0.0-2.0 [facility] Comment on above: Performed By: #### L [id number] ####Event Marketing Intern: LESLEE HERNANDEZ ([phone])[facility] ([facility])[address] IMMATURE GRANS ABSOLUTE 0.0 10*3/uL Normal <0.1 [facility] Comment on above: Performed By: #### L [id number] ####Event Marketing Intern: LESLEE HERNANDEZ ([phone])[facility] ([facility])[address] Lymphocytes (Bld) [#/Vol] 2.4 10*3/uL Normal 1.0-4.3 [facility] Comment on above: Performed By: #### L [id number] ####Event Marketing Intern: LESLEE HERNANDEZ ([phone])[facility] ([facility])[address] [place] [address] [place] Lymphocytes/100 WBC (Bld) 28.9 % Normal 15.0-45.0 [facility] Comment on above: Performed By: #### L [id number] ####Event Marketing Intern: LESLEE HERNANDEZ ([id number])[facility] ([facility])[address] MCH (RBC) [Entitic mass] 32.9 pg Normal 26.0-34.0 [facility] Comment on above: Performed By: #### L [id number] ####Event Marketing Intern: LESLEE HERNANDEZ ([phone])[facility] ([facility])[address] MCHC 32.0 % Normal 30.5-36.0 [facility] Comment on above: Performed By: #### L [id number] ####Event Marketing Intern: LESLEE HERNANDEZ ([phone])[facility] ([facility])[address] MCV (RBC) [Entitic vol] 102.8 fL High 77.0-99.0 [facility] Comment on above: Performed By: #### L [id number] ####Event Marketing Intern: LESLEE HERNANDEZ ([phone])[facility] ([facility])[address] Monocytes (Bld) [#/Vol] 0.6 10*3/uL Normal 0.0-0.9 [facility] Comment on above: Performed By: #### L [id number] ####Event Marketing Intern: LESLEE HERNANDEZ ([phone])[facility] ([facility])[address] Monocytes/100 WBC (Bld) 6.5 % Normal 5.0-13.0 [facility] Comment on above: Performed By: #### L [id number] ####Event Marketing Intern: LESLEE HERNANDEZ ([phone])[facility] ([facility])[address] NEUTROPHILS ABSOLUTE 5.4 10*3/uL Normal 1.8-7.5 [facility] Comment on above: Performed By: #### L [id number] ####Event Marketing Intern: LESLEE HERNANDEZ ([phone])[facility] ([facility])[address] Neutrophils/100 WBC (Bld) 63.8 % Normal 38.0-82.0 [facility] Comment on above: Performed By: #### L [id number] ####Event Marketing Intern: LESLEE HERNANDEZ ([phone])[facility] ([facility])[address] NRBC 0.0 /100 WBCs Normal 0.0-2.0 [facility] Comment on above: Performed By: #### L [id number] ####Event Marketing Intern: LESLEE HERNANDEZ ([id number])[facility] ([facility])[address] Platelet mean volume (Bld) [Entitic vol] 9.8 fL Normal 9.0-12.7 [facility] Comment on above: Performed By: #### L [id number] ####Event Marketing Intern: LESLEE HERNANDEZ ([id number])[facility] ([facility])[address] Platelets (Bld) [#/Vol] 270 10*3/uL Normal 140-440 [facility] Comment on above: Performed By: #### L [id number] ####Event Marketing Intern: LESLEE HERNANDEZ ([phone])[facility] ([facility])[address] RBC (Bld) [#/Vol] 4.71 10*6/uL Normal 4.40-5.90 [facility] Comment on above: Performed By: #### L [id number] ####Event Marketing Intern: LESLEE HERNANDEZ ([id number])[facility] ([facility])[address] [place] [address] [place] WBC (Bld) [#/Vol] 8.4 10*3/uL Normal 3.6-10.7 [facility] Comment on above: Performed By: #### L [id number] ####Event Marketing Intern: LESLEE HERNANDEZ ([phone])[facility] ([facility])[address] [place] [address] [facility] CT ABDOMEN PELVIS W CONTRAST on 07-11-2024 CT ABDOMEN PELVIS W CONTRAST Normal [facility] CT Abdomen and Pelvis W cont rast [place] 07-11-2024 Trace left pleural effusion. Resolving right lung base infiltrates. Persistent small volume of intra-abdominal and intrapelvic ascites with edema throughout the mesentery. Hepatic steatosis. Colonic diverticulosis. Additional findings, as above. Report Dictated on Electronically Signed By: Kaitlin Goldsmith MD Electronically Signed Date/Time: 07/11/2024 10:46 PM [facility] EMERGENCY [facility]PARTMENT RADIOLOGY SYSTEM Patient Name: CARLO [...] 07/11/2024 Patient Name: CARLO MEDINA : 1980 [facility]#: [id number] Exam Date/Time: 07/11/2024 21:05 Procedure: CT ABDOMEN [...] MD Electronically Signed Date/Time: 07/11/2024 10:[address] 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 States he was here last week and had to get diuretics, he had fluid retention. Endorses similar sx and increased weight. Pt weight Friday was 170lbs, today 174lbs. Denies any SOB Normal [facility] ED Provider Noteon ED Provider Note Normal [facility] HEPATIC FUNCTION PANELon Albumin [Mass/Vol] 3.3 g/dL Low 3.5-5.0 [facility] Comment on above: Performed By: #### L AB106, LAB15, [id number], LAB20 ####Event Marketing Intern: LESLEE HERNANDEZ ([phone])[facility] (SBAB)[address] [place] [address] [place] ALP [Catalytic activity/Vol] 213 U/L High 40-150 [facility] Comment on above: Performed By: #### L AB106, LAB15, [id number], LAB20 ####Event Marketing Intern: LESLEE HERNANDEZ ([phone])[facility] [place] [address] [place] ALT [Catalytic activity/Vol] 134 U/L High <40 [facility] Comment on above: Performed By: #### L AB106, LAB15, [id number], LAB20 ####Event Marketing Intern: LESLEE HERNANDEZ ([phone])[facility] ([facility])[address] [place] [address] [place] AST [Catalytic activity/Vol] 75 U/L High <34 [facility] Comment on above: Performed By: #### L AB106, LAB15, [id number], LAB20 ####Event Marketing Intern: LESLEE HERNANDEZ ([phone])[facility] (SBAB)[address] [place] [address] [place] Bilirubin [Mass/Vol] 2.2 mg/dL High <1.2 [facility] Comment on above: Performed By: #### L AB106, LAB15, [id number], LAB20 ####Event Marketing Intern: LESLEE HERNANDEZ ([id number])[facility] ([facility])[address] [place] [address] Bilirubin.indirect [Mass/Vol] 1.0 mg/dL High <0.5 [facility] Comment on above: Performed By: #### L AB106, LAB15, [id number], LAB20 ####Event Marketing Intern: LESLEE HERNANDEZ ([phone])[facility] ([facility])[address] Protein [Mass/Vol] 6.4 g/dL Normal 6.4-8.3 [facility] Comment on above: Result Comment: Seru m protein values are higher than plasma values. Samples from recumbent persons are lower by up to 0.5 g/dL as compared to ambulatory persons. After 60 years values are lower by up to 0.2 g/dL. Performed By: #### L AB106, LAB15, [id number], LAB20 ####Event Marketing Intern: LESLEE HERNANDEZ ([phone])[facility] ([facility])[address] [place] [address] HIGH SENSITIVITY TROPONIN, S ERIAL BASELINEon 07-11-2024 TROPONIN HIGH SENSITIVITY BASELINE 218 ng/L Critically high <=35 [facility] Comment on above: Performed By: #### L AB106, LAB15, [id number], LAB20 ####Event Marketing Intern: LESLEE HERNANDEZ ([phone])[facility] [place] [address] HIGH SENSITIVITY TROPONIN, S ERIAL, SECOND TESTon 07-11-2024 TROPONIN HS DELTA, BASELINE TO SECOND 3 ng/L Normal <=2 [facility] Comment on above: Result Comment: A tr [...] further clinical guidance. Performed By: #### L [id number] ####Event Marketing Intern: LESLEE HERNANDEZ ([phone])[facility] TROPONIN HS, SERIAL REFLEX, TEST TWO 221 ng/L Critically high <=35 [facility] Comment on above: Performed By: #### L [id number] ####Event Marketing Intern: LESLEE HERNANDEZ ([phone])[facility])[address] Hepatic function 2000 panelo n 07-11-2024 Albumin [Mass/Vol] 3.3 g/dL Low 3.5 - 5.0 g/dL [facility] ALP [Catalytic activity/Vol] 213 U/L High 40 - 150 U/L [facility] ALT [Catalytic activity/Vol] 134 U/L High NINF - 40 U/L [facility] AST [Catalytic activity/Vol] 75 U/L High NINF - 34 U/L [facility] Bilirubin [Mass/Vol] 2.2 mg/dL High [facility] 1.2 mg/dL [facility] Bilirubin.conjugated [Mass/Vol] 1 mg/dL High [facility] - 0.5 mg/dL [facility] Protein [Mass/Vol] 6.4 g/dL 6.4 - 8.3 g/dL [facility] Comment on above: Serum protein values are higher than plasma values. Samples from recumbent persons are lower by up to 0.5 g/dL as compared to ambulatory persons. After 60 years values are lower by up to 0.2 g/dL. NT PRO BNPon 07-11-2024 Natriuretic peptide B (Bld) [Mass/Vol] 77131 pg/mL High <125 [facility] Comment on above: Performed By: #### L AB106, LAB15, [id number], LAB20 ####Event Marketing Intern: LESLEE HERNANDEZ ([phone])[facility] Natriuretic peptide B [Mass/ Vol]on 07-11-2024 Interpretation and review of laboratory results Abnormal [facility] Natriuretic peptide B (Bld) [Mass/Vol] 69619 pg/mL High NINF - 125 pg/mL [facility] No Panel InformationOrdered By: [place] on 07-11-2024 Interpretation and review of laboratory results Abnormal [facility] Troponin HS Delta, Baseline to Second 3 ng/L NINF - 2 ng/L [facility] Comment on above: A troponin delta [...] Interpretation and review of laboratory results Abnormal [facility] Troponin HS, Serial Baseline 218 ng/L Critically high NINF - 35 ng/L [facility] No Panel Informationon 07-11 Interpretation and review of laboratory results Abnormal [facility] XR Chest Single viewon 07-11 Cardiomegaly. No confluent consolidation. Report Dictated on Electronically Signed By: Kaitlin Goldsmith MD Electronically Signed Date/Time: 07/11/2024 6:52 PM EST [facility] 1980 [id number] Exam Date/Time: 07/11/2024 18:52 Procedure: XR CHEST 1 VIEW Ordering Provider: KENNY J Reason For Exam: CHF, SOB INDICATION: Shortness of breath. VIEWS: Chest portable AP upright-on image COMPARISON: 07/03/2024 FINDINGS: The trachea is midline. The cardiac silhouette is enlarged. The costophrenic angles are sharp. There is no confluent consolidation. [facility] Kaitlin Goldsmith MD - 07/11/2024 Patient Name: CARLO MEDINA : 1980 [facility]#: [id number] Exam Date/Time: 07/11/2024 18:52 Procedure: XR CHEST [...] Electronically Signed Date/Time: 07/11/2024 6:52 PM EST [facility] Radiology Study observation (narrative) [facility] XR Chest Single viewOrdered By: Kaitlin Goldsmith on 07-11-2024 [facility] Work Phone: aPTT Coag (Bld) [Time]on aPTT Coag (PPP) [Time] 24.2 s 20.0 - 30.5 s [facility] Interpretation and review of laboratory results Normal [facility] NOTE: The therapeuti c time for Heparin anticoagulation, based on Xa activity inhibition, is an APTT of 46-80 seconds. [facility] ECG 12 leadon 07-07-2024 Sinus Tachycardia -Left atrial enlargement. Voltage criteria for LVH (S(V1)+R(V6) exceeds 3.50 mV). -Nonspecific ST depression + Nonspecific T-abnormality -Seen with left ventricular hypertrophy (strain). ABNORMAL [facility] Progress Noteon 07-07-2024 Progress Note Normal [facility] [id number] 07-05-2024 [id number] Normal [facility] Nursing Noteon 07-05-2024 Nursing Note Normal [facility] Progress Noteon 07-05-2024 Progress Note Nutrition rescreen completed. Chart reviewed. Patient to be monitored and followed by the diet furniture technician. Normal [facility] Progress Note Normal [facility] Progress Note Normal [facility] BASIC METABOLIC PANELon Anion gap [Moles/Vol] 6 mmol/L Normal 3-13 [facility] Comment on above: Performed By: #### L AB15, [id number] ####Event Marketing Intern: NICOLE BOWERS ([phone])[facility] ([facility])[address] [place] [address] Calcium [Mass/Vol] 8.2 mg/dL Low 8.4-10.2 [facility] Comment on above: Performed By: #### L AB15, [id number] ####Event Marketing Intern: NICOLE BOWERS ([phone])[facility] [place] [address] Chloride [Moles/Vol] 103 mmol/L Normal 98-107 [facility] Comment on above: Performed By: #### L AB15, [id number] ####Event Marketing Intern: NICOLE BOWERS ([phone])[facility] [place] [address] CO2 [Moles/Vol] 25 mmol/L Normal 22-29 [facility] Comment on above: Performed By: #### L AB15, [id number] ####Event Marketing Intern: NICOLE BOWERS ([phone])[facility] [place] [address] Creatinine [Mass/Vol] 2.18 mg/dL High 0.72-1.25 [facility] Comment on above: Performed By: #### L AB15, [id number] ####Event Marketing Intern: NICOLE BOWERS ([id number])[facility] ([facility])[address] [place] [address] [place] GLOMERULAR FILTRATION RATE ML/MIN/1.73 SQ M.PREDICTED 36.9 mL/min/1.73m*2 Low >60.0 [facility] Comment on above: Result Comment: Calc ulation based on the Chronic Kidney Disease Epidemiology Collaboration (CKD-EPI) equation refit without adjustment for race Performed By: #### L [id number], [id number] ####Event Marketing Intern: NICOLE BOWERS ([phone])[facility] [place] [address] [place] Glucose [Mass/Vol] 109 mg/dL High 74-100 [facility] Comment on above: Performed By: #### L [id number], [id number] ####Event Marketing Intern: NICOLE BOWERS ([phone])[facility])[address] [place] [address] Potassium [Moles/Vol] 3.5 mmol/L Normal 3.5-5.1 [facility] Comment on above: Result Comment: [facility] potassium values may be up to 0.5 mmol/L lower than serum values. Performed By: #### L [id number], [id number] ####Event Marketing Intern: NICOLE BOWERS ([phone])[facility] ([facility])[address] [place] [address] Sodium [Moles/Vol] 134 mmol/L Low 136-145 [facility] Comment on above: Performed By: #### L AB15, [id number] ####Event Marketing Intern: NICOLE BOWERS ([phone])[facility])[address] [place] [address] Urea nitrogen [Mass/Vol] 36 mg/dL High 8-21 [facility] Comment on above: Performed By: #### L [id number], [id number] ####Event Marketing Intern: NICOLE BOWERS ([phone])[facility])[address] [place] [address] Basic metabolic 1998 panelon 07-04-2024 Anion gap [Moles/Vol] 6 mmol/L 3 - 13 mmol/L [facility] Calcium [Mass/Vol] 8.2 mg/dL Low 8.4 - 10. 2 mg/dL [facility] Chloride [Moles/Vol] 103 mmol/L 98 - 10 7 mmol/L [facility] CO2 [Moles/Vol] 25 mmol/L 22 - 29 mmol/L [facility] Creatinine [Mass/Vol] 2.18 mg/dL High 0.72 - 1.25 mg/dL [facility] GFR/1.73 sq M.predicted (S/P/Bld) [Vol rate/Area] 36.9 mL/min Low - PINF [facility] Comment on above: Calculation based on the Chronic Kidney Disease Epidemiology Collaboration (CKD-EPI) equation refit without adjustment for race Glucose [Mass/Vol] 109 mg/dL High 74 - 100 mg/dL [facility] Interpretation and review of laboratory results Abnormal [facility] Potassium [Moles/Vol] 3.5 mmol/L 3.5 - 5.1 mmol/L [facility] Comment on above: Plasma potassium heidi ues may be up to 0.5 mmol/L lower than serum values. Sodium [Moles/Vol] 134 mmol/L Low 136 - 145 mmol/L [facility] Urea nitrogen [Mass/Vol] 36 mg/dL High 8 - 21 mg/dL [facility] CBC W Auto Differential pane l (Bld)Ordered By: Ragini Weinberg on 07-04-2024 Basophils (Bld) [#/Vol] 0 10*3/uL 0.0 - 0.2 10*3/uL [facility] Basophils/100 WBC (Bld) 0.3 % 0.0 - 2.0 % [facility] Eosinophils (Bld) [#/Vol] 0 10*3/uL 0.0 - 0.5 10*3/uL [facility] Eosinophils/100 WBC (Bld) 0.5 % 0.0 - 6.0 % [facility] Erythrocyte distribution width (RBC) [Ratio] 14.3 % 11.5 - 15.0 % [facility] Hematocrit (Bld) [Volume fraction] 45.1 % 40.0 - 52.0 % [facility] Hemoglobin (Bld) [Mass/Vol] 14.3 g/dL 13.0 - 18.0 g/dL [facility] Immature granulocytes (Bld) [#/Vol] 0 10*3/uL NINF - 0.1 10*3/uL [facility] Immature granulocytes/100 WBC (Bld) 0.5 % 0.0 - 2.0 % [facility] Interpretation and review of laboratory results Abnormal [facility] Lymphocytes (Bld) [#/Vol] 2.7 10*3/uL 1.0 - 4.3 10*3/uL [facility] Lymphocytes/100 WBC (Bld) 31 % 15.0 - 45.0 % [facility] MCH (RBC) [Entitic mass] 32.9 pg 26.0 - 34.0 pg [facility] MCHC (RBC) [Mass/Vol] 31.7 % 30.5 - 36.0 % [facility] MCV (RBC) [Entitic vol] 103.9 fL High 77.0 - 99.0 fL [facility] Monocytes (Bld) [#/Vol] 0.8 10*3/uL 0.0 - 0.9 10*3/uL [facility] Monocytes/100 WBC (Bld) 8.8 % 5.0 - 13.0 % [facility] Neutrophils (Bld) [#/Vol] 5.1 10*3/uL 1.8 - 7.5 10*3/uL [facility] Neutrophils/100 WBC (Bld) 58.9 % 38.0 - 82.0 % [facility] Nucleated RBC/100 WBC (Bld) [Ratio] 0.2 % [facility] Platelet mean volume (Bld) [Entitic vol] 10.7 fL 9.0 - 12.7 fL [facility] Platelets (Bld) [#/Vol] 239 10*3/uL 140 - 440 10*3/uL [facility] RBC (Bld) [#/Vol] 4.34 10*6/uL Low 4.40 - 5.9 0 10*6/uL [facility] WBC (Bld) [#/Vol] 8.6 10*3/uL 3.6 - 10.7 10*3/uL [facility] CBC WITH AUTO DIFFERENTIALon 07-04-2024 Basophils (Bld) [#/Vol] 0.0 10*3/uL Normal 0.0-0.2 [facility] Comment on above: Performed By: #### L [id number] ####Event Marketing Intern: NICOLE BOWERS ([phone])[address] Basophils/100 WBC (Bld) 0.3 % Normal 0.0-2.0 [facility] Comment on above: Performed By: #### L [id number] ####Event Marketing Intern: NICOLE BOWERS ([phone])[address] Eosinophils (Bld) [#/Vol] 0.0 10*3/uL Normal 0.0-0.5 [facility] Comment on above: Performed By: #### L [id number] ####Event Marketing Intern: NICOLE BOWERS ([phone])[address] Eosinophils/100 WBC (Bld) 0.5 % Normal 0.0-6.0 [facility] Comment on above: Performed By: #### L [id number] ####Event Marketing Intern: NICOLE BOWERS ([phone])[facility])[address] [place] [address] Erythrocyte distribution width (RBC) [Ratio] 14.3 % Normal 11.5-15.0 [facility] Comment on above: Performed By: #### L [id number] ####Event Marketing Intern: NICOLE BOWERS ([phone])[address] Hematocrit (Bld) [Volume fraction] 45.1 % Normal 40.0-52.0 [facility] Comment on above: Performed By: #### L [id number] ####Event Marketing Intern: NICOLE BOWERS ([phone])[address] Hemoglobin (Bld) [Mass/Vol] 14.3 g/dL Normal 13.0-18.0 [facility] Comment on above: Performed By: #### L [id number] ####Event Marketing Intern: NICOLE BOWERS ([phone])[address] IMMATURE GRANS % 0.5 % Normal 0.0-2.0 [facility] Comment on above: Performed By: #### L [id number] ####Event Marketing Intern: NICOLE BOWERS ([id number])[address] IMMATURE GRANS ABSOLUTE 0.0 10*3/uL Normal <0.1 [facility] Comment on above: Performed By: #### L [id number] ####Event Marketing Intern: NICOLE BOWERS ([phone])[address] [place] [address] [place] Lymphocytes (Bld) [#/Vol] 2.7 10*3/uL Normal 1.0-4.3 [facility] Comment on above: Performed By: #### L [id number] ####Event Marketing Intern: NICOLE BOWERS ([phone])[facility])[address] [place] [address] Lymphocytes/100 WBC (Bld) 31.0 % Normal 15.0-45.0 [facility] Comment on above: Performed By: #### L [id number] ####Event Marketing Intern: NICOLE BOWERS ([phone])[facility])[address] [place] [address] MCH (RBC) [Entitic mass] 32.9 pg Normal 26.0-34.0 [facility] Comment on above: Performed By: #### L [id number] ####Event Marketing Intern: NICOLE BOWERS ([phone])[facility])[address] [place] [address] MCHC 31.7 % Normal 30.5-36.0 [facility] Comment on above: Performed By: #### L [id number] ####Event Marketing Intern: NICOLE BOWERS ([phone])[facility])[address] [place] [address] MCV (RBC) [Entitic vol] 103.9 fL High 77.0-99.0 [facility] Comment on above: Performed By: #### L [id number] ####Event Marketing Intern: NICOLE BOWERS ([phone])[facility])[address] [place] [address] Monocytes (Bld) [#/Vol] 0.8 10*3/uL Normal 0.0-0.9 [facility] Comment on above: Performed By: #### L [id number] ####Event Marketing Intern: NICOLE BOWERS ([phone])[facility])[address] [place] [address] Monocytes/100 WBC (Bld) 8.8 % Normal 5.0-13.0 [facility] Comment on above: Performed By: #### L [id number] ####Event Marketing Intern: NICOLE BOWERS ([phone])[facility] ([facility])[address] [place] [address] NEUTROPHILS ABSOLUTE 5.1 10*3/uL Normal 1.8-7.5 [facility] Comment on above: Performed By: #### L [id number] ####Event Marketing Intern: NICOLE BOWERS ([phone])[facility] ([facility])[address] [place] [address] Neutrophils/100 WBC (Bld) 58.9 % Normal 38.0-82.0 [facility] Comment on above: Performed By: #### L [id number] ####Event Marketing Intern: NICOLE BOWERS ([id number])[facility] ([facility])[address] [place] [address] NRBC 0.2 /100 WBCs Normal 0.0-2.0 [facility] Comment on above: Performed By: #### L [id number] ####Event Marketing Intern: NICOLE BOWERS ([phone])[facility] ([facility])[address] [place] [address] Platelet mean volume (Bld) [Entitic vol] 10.7 fL Normal 9.0-12.7 [facility] Comment on above: Performed By: #### L [id number] ####Event Marketing Intern: NICOLE BOWERS ([phone])[facility] ([facility])[address] [place] [address] Platelets (Bld) [#/Vol] 239 10*3/uL Normal 140-440 [facility] Comment on above: Performed By: #### L [id number] ####Event Marketing Intern: NICOLE BOWERS ([id number])[facility] ([facility])[address] [place] [address] RBC (Bld) [#/Vol] 4.34 10*6/uL Low 4.40-5.90 [facility] Comment on above: Performed By: #### L [id number] ####Event Marketing Intern: NICOLE BOWERS ([phone])[facility] ([facility])[address] [place] [address] WBC (Bld) [#/Vol] 8.6 10*3/uL Normal 3.6-10.7 [facility] Comment on above: Performed By: #### L [id number] ####Event Marketing Intern: NICOLE BOWERS ([id number])[facility] ([facility])[address] [place] [address] COMPREHENSIVE METABOLIC PANE Ming 07-04-2024 Albumin [Mass/Vol] 2.7 g/dL Low 3.5-5.0 [facility] Comment on above: Performed By: #### L [id number] ####Event Marketing Intern: NICOLE BOWERS ([phone])[facility] ([facility])[address] [place] [address] ALP [Catalytic activity/Vol] 229 U/L High 40-150 [facility] Comment on above: Performed By: #### L [id number] ####Event Marketing Intern: NICOLE BOWERS ([id number])[facility] ([facility])[address] [place] [address] ALT [Catalytic activity/Vol] 126 U/L High <40 [facility] Comment on above: Performed By: #### L [id number] ####Event Marketing Intern: NICOLE BOWERS ([phone])[facility] ([facility])[address] [place] [address] Anion gap [Moles/Vol] 9 mmol/L Normal 3-13 [facility] Comment on above: Performed By: #### L [id number] ####Event Marketing Intern: NICOLE BOWERS ([phone])[facility] ([facility])[address] [place] [address] AST [Catalytic activity/Vol] 47 U/L High <34 [facility] Comment on above: Performed By: #### L [id number] ####Event Marketing Intern: NICOLE BOWERS ([phone])[facility] ([facility])[address] [place] [address] Bilirubin [Mass/Vol] 1.3 mg/dL High <1.2 [facility] Comment on above: Performed By: #### L [id number] ####Event Marketing Intern: NICOLE BOWERS ([id number])[facility] ([facility])[address] [place] [address] Calcium [Mass/Vol] 8.0 mg/dL Low 8.4-10.2 [facility] Comment on above: Performed By: #### L [id number] ####Event Marketing Intern: NICOLE BOWERS ([id number])[facility] [place] [address] Chloride [Moles/Vol] 106 mmol/L Normal 98-107 [facility] Comment on above: Performed By: #### L [id number] ####Event Marketing Intern: NICOLE BOWERS ([phone])[facility] ([facility])[address] [place] [address] CO2 [Moles/Vol] 20 mmol/L Low 22-29 [facility] Comment on above: Performed By: #### L [id number] ####Event Marketing Intern: NICOLE BOWERS ([id number])[facility] ([facility])[address] [place] [address] Creatinine [Mass/Vol] 2.12 mg/dL High 0.72-1.25 [facility] Comment on above: Performed By: #### L [id number] ####Event Marketing Intern: NICOLE BOWERS ([id number])[facility] ([facility])[address] [place] [address] GLOMERULAR FILTRATION RATE ML/MIN/1.73 SQ M.PREDICTED 38.2 mL/min/1.73m*2 Low >60.0 [facility] Comment on above: Result Comment: Calc ulation based on the Chronic Kidney Disease Epidemiology Collaboration (CKD-EPI) equation refit without adjustment for race Performed By: #### L [id number] ####Event Marketing Intern: NICOLE BOWERS ([phone])[facility] ([facility])[address] [place] [address] Glucose [Mass/Vol] 95 mg/dL Normal 74-100 [facility] Comment on above: Performed By: #### L [id number] ####Event Marketing Intern: NICOLE BOWERS ([phone])[facility])[address] [place] [address] Potassium [Moles/Vol] 4.3 mmol/L Normal 3.5-5.1 [facility] Comment on above: Result Comment: [facility] potassium values may be up to 0.5 mmol/L lower than serum values. Performed By: #### L [id number] ####Event Marketing Intern: NICOLE BOWERS ([phone])[facility])[address] [place] [address] Protein [Mass/Vol] 5.3 g/dL Low 6.4-8.3 [facility] Comment on above: Performed By: #### L [id number] ####Event Marketing Intern: NICOLE BOWERS ([phone])[facility])[address] [place] [address] Sodium [Moles/Vol] 135 mmol/L Low 136-145 [facility] Comment on above: Performed By: #### L [id number] ####Event Marketing Intern: NICOLE BOWERS ([phone])[address] Urea nitrogen [Mass/Vol] 36 mg/dL High 8-21 [facility] Comment on above: Performed By: #### L [id number] ####Event Marketing Intern: NICOLE BOWERS ([phone])[facility])[address] [place] [address] Comprehensive metabolic 1998 panelon 07-04-2024 Albumin [Mass/Vol] 2.7 g/dL Low 3.5 - 5.0 g/dL [facility] ALP [Catalytic activity/Vol] 229 U/L High 40 - 150 U/L [facility] ALT [Catalytic activity/Vol] 126 U/L High NINF - 40 U/L [facility] Anion gap [Moles/Vol] 9 mmol/L 3 - 13 mmol/L [facility] AST [Catalytic activity/Vol] 47 U/L High NINF - 34 U/L [facility] Bilirubin [Mass/Vol] 1.3 mg/dL High NINF - 1.2 mg/dL [facility] Calcium [Mass/Vol] 8 mg/dL Low 8.4 - 10. 2 mg/dL [facility] Chloride [Moles/Vol] 106 mmol/L 98 - 10 7 mmol/L [facility] CO2 [Moles/Vol] 20 mmol/L Low 22 - 29 mmol/L [facility] Creatinine [Mass/Vol] 2.12 mg/dL High 0.72 - 1.25 mg/dL [facility] GFR/1.73 sq M.predicted (S/P/Bld) [Vol rate/Area] 38.2 mL/min Low - PINF [facility] Comment on above: Calculation based on the Chronic Kidney Disease Epidemiology Collaboration (CKD-EPI) equation refit without adjustment for race Glucose [Mass/Vol] 95 mg/dL 74 - 100 mg/dL [facility] Interpretation and review of laboratory results Abnormal [facility] Potassium [Moles/Vol] 4.3 mmol/L 3.5 - 5.1 mmol/L [facility] Comment on above: Plasma potassium heidi ues may be up to 0.5 mmol/L lower than serum values. Protein [Mass/Vol] 5.3 g/dL Low 6.4 - 8.3 g/dL [facility] Sodium [Moles/Vol] 135 mmol/L Low 136 - 145 mmol/L [facility] Urea nitrogen [Mass/Vol] 36 mg/dL High 8 - 21 mg/dL [facility] LACTIC ACID WITH REFLEXon Lactate [Moles/Vol] 1.4 mmol/L Normal 0.5-2.2 [facility] Comment on above: Performed By: #### L [id number] ####Event Marketing Intern: NICOLE BOWERS ([phone])[facility] ([facility])[address] [place] [address] Lactate [Moles/Vol] 2.1 mmol/L Normal 0.5-2.2 [facility] Comment on above: Performed By: #### L [id number] ####Event Marketing Intern: NICOLE BOWERS ([id number])[facility] [place] [address] Laboratory - Chemistry and C hemistry - challengeon 07-04-2024 Magnesium [Mass/Vol] 2 mg/dL 1.6 - 2 .6 mg/dL [facility] Lactate [Moles/Vol] 2.1 mmol/L 0.5 - 2. 2 mmol/L [facility] Urea nitrogen (U) [Mass/Vol] 620 mg/dL [facility] MAGNESIUMon 07-04-2024 Magnesium [Mass/Vol] 2.0 mg/dL Normal 1.6-2.6 [facility] Comment on above: Result Comment: ALEJANDRO Aleman COMMENTS:Higher values can be expected in females during menses. Performed By: #### L [id number], [id number] ####Event Marketing Intern: NICOLE BOWERS ([phone])[facility] ([facility])[address] [place] [address] Magnesium [Mass/Vol]on 07-04 Interpretation and review of laboratory results Normal [facility] Higher values can be expected in females during menses. [facility] No Panel Informationon 07-04 Interpretation and review of laboratory results Normal [facility] Interpretation and review of laboratory results Normal [facility] CREATININE, URINE 115.3 mg/dL 63.0 - 166 .0 mg/dL [facility] UREA (BUN), URINE, FRACTIONAL EXCRETION 30.9 [facility] Comment on above: Fractional excretion of urea under 35% is consistent with a prerenal cause. UREA (BUN), URINE, TUBULAR REABSORPTION 0.7 [facility] Progress Noteon 07-04-2024 Progress Note Normal [facility] Progress Note Normal [facility] BLOOD GAS, VENOUSon 07-03-19 25 Base excess Calc (BldV) [Moles/Vol] -6.8000 mmol/L Low -3.0-3.0 [facility] Comment on above: Performed By: #### L [id number] ####Event Marketing Intern: LESLEE HERNANDEZ ([phone])[facility] ([facility])[address] [place] [address] CO2 [Moles/Vol] 19.5 mmol/L Low 23.0-30.0 [facility] Comment on above: Performed By: #### L [id number] ####Event Marketing Intern: LESLEE HERNANDEZ ([id number])[facility] ([facility])[address] HCO3 (Bld) [Moles/Vol] 18.4 mmol/L Low 21.0-30.0 [facility] Comment on above: Performed By: #### L [id number] ####Event Marketing Intern: LESLEE HERNANDEZ ([phone])[facility] ([facility])[address] Hemoglobin (Bld) [Mass/Vol] 15.2 g/dL Normal Screen only [facility] Comment on above: Performed By: #### L [id number] ####Event Marketing Intern: LESLEE HERNANDEZ ([phone])[facility] ([facility])[address] OXYGEN (MM HG) IN VENOUS BLOOD 39.3 mm Hg Normal [facility] Comment on above: Performed By: #### L [id number] ####Event Marketing Intern: LESLEE HERNANDEZ ([id number])[facility] ([facility])[address] [place] [address] OXYGEN SATURATION (%) IN VENOUS BLOOD 60.4 % Normal [facility] Comment on above: Performed By: #### L [id number] ####Event Marketing Intern: LESLEE HERNANDEZ ([phone])[facility] ([facility])[address] PCO2, JAZ 36.1 mm Hg Low 38.0-56.0 [facility] Comment on above: Performed By: #### L [id number] ####Event Marketing Intern: LESLEE HERNANDEZ ([id number])[facility] ([facility])[address] PH VENOUS 7.325 Normal 7.320-7.420 [facility] Comment on above: Performed By: #### L [id number] ####Event Marketing Intern: LESLEE HERNANDEZ ([id number])[facility] ([facility])[address] SOURCE OF OXYGEN Room Air Normal [facility] Comment on above: Result Comment: ALEJANDRO Aleman COMMENTS:Assessment of oxygenation is best done with an arterial blood gas determination. Reference ranges for pO2, bicarbonate, and base excess are for mixed venous blood. Specimens drawn from a peripheral vein will often have higher values. Performed By: #### L [id number] ####Event Marketing Intern: LESLEE HERNANDEZ ([phone])[facility] ([facility])[address] CBC W Auto Differential pane l (Bld)on 07-03-2024 Basophils (Bld) [#/Vol] 0 10*3/uL 0.0 - 0.2 10*3/uL [facility] Basophils/100 WBC (Bld) 0.3 % 0.0 - 2.0 % [facility] Eosinophils (Bld) [#/Vol] 0 10*3/uL 0.0 - 0.5 10*3/uL [facility] Eosinophils/100 WBC (Bld) 0 % 0.0 - 6.0 % [facility] Erythrocyte distribution width (RBC) [Ratio] 14.6 % 11.5 - 15.0 % [facility] Hematocrit (Bld) [Volume fraction] 48.6 % 40.0 - 52.0 % [facility] Hemoglobin (Bld) [Mass/Vol] 15.7 g/dL 13.0 - 18.0 g/dL [facility] Immature granulocytes (Bld) [#/Vol] 0 10*3/uL NINF - 0.1 10*3/uL [facility] Immature granulocytes/100 WBC (Bld) 0.4 % 0.0 - 2.0 % [facility] Interpretation and review of laboratory results Abnormal [facility] Lymphocytes (Bld) [#/Vol] 1.5 10*3/uL 1.0 - 4.3 10*3/uL [facility] Lymphocytes/100 WBC (Bld) 21.1 % 15.0 - 45.0 % [facility] MCH (RBC) [Entitic mass] 33 pg 26.0 - 34.0 pg [facility] MCHC (RBC) [Mass/Vol] 32.3 % 30.5 - 36.0 % [facility] MCV (RBC) [Entitic vol] 102.1 fL High 77.0 - 99.0 fL [facility] Monocytes (Bld) [#/Vol] 0.4 10*3/uL 0.0 - 0.9 10*3/uL [facility] Monocytes/100 WBC (Bld) 5.4 % 5.0 - 13.0 % [facility] Neutrophils (Bld) [#/Vol] 5.3 10*3/uL 1.8 - 7.5 10*3/uL [facility] Neutrophils/100 WBC (Bld) 72.8 % 38.0 - 82.0 % [facility] Nucleated RBC/100 WBC (Bld) [Ratio] 0.3 % [facility] Platelet mean volume (Bld) [Entitic vol] 10.2 fL 9.0 - 12.7 fL [facility] Platelets (Bld) [#/Vol] 261 10*3/uL 140 - 440 10*3/uL [facility] [facility] RBC (Bld) [#/Vol] 4.76 10*6/uL 4.40 - 5.9 0 10*6/uL [facility] WBC (Bld) [#/Vol] 7.3 10*3/uL 3.6 - 10.7 10*3/uL [facility] CBC WITH AUTO DIFFERENTIALon 07-03-2024 Basophils (Bld) [#/Vol] 0.0 10*3/uL Normal 0.0-0.2 [facility] Comment on above: Performed By: #### L [id number] ####Event Marketing Intern: LESLEE HERNANDEZ ([phone])[facility] ([facility])[address] [place] [address] Basophils/100 WBC (Bld) 0.3 % Normal 0.0-2.0 [facility] Comment on above: Performed By: #### L [id number] ####Event Marketing Intern: LESLEE HERNANDEZ ([phone])[facility] Eosinophils (Bld) [#/Vol] 0.0 10*3/uL Normal 0.0-0.5 [facility] Comment on above: Performed By: #### L [id number] ####Event Marketing Intern: LESLEE HERNANDEZ ([phone])[facility] ([facility])[address] [place] [address] Eosinophils/100 WBC (Bld) 0.0 % Normal 0.0-6.0 [facility] Comment on above: Performed By: #### L [id number] ####Event Marketing Intern: LESLEE HERNANDEZ ([phone])[facility] ([facility])[address] [place] [address] Erythrocyte distribution width (RBC) [Ratio] 14.6 % Normal 11.5-15.0 [facility] Comment on above: Performed By: #### L [id number] ####Event Marketing Intern: LESLEE HERNANDEZ ([phone])[facility] ([facility])[address] [place] [address] Hematocrit (Bld) [Volume fraction] 48.6 % Normal 40.0-52.0 [facility] Comment on above: Performed By: #### L [id number] ####Event Marketing Intern: LESLEE HERNANDEZ ([phone])[facility] ([facility])[address] [place] [address] Hemoglobin (Bld) [Mass/Vol] 15.7 g/dL Normal 13.0-18.0 [facility] Comment on above: Performed By: #### L [id number] ####Event Marketing Intern: LESLEE HERNANDEZ ([phone])[facility] ([facility])[address] [place] [address] IMMATURE GRANS % 0.4 % Normal 0.0-2.0 [facility] Comment on above: Performed By: #### L [id number] ####Event Marketing Intern: LESLEE HERNANDEZ ([phone])[facility] ([facility])[address] [place] [address] IMMATURE GRANS ABSOLUTE 0.0 10*3/uL Normal <0.1 [facility] Comment on above: Performed By: #### L [id number] ####Event Marketing Intern: LESLEE CHARITONinoskaTYRONE ([phone])[facility]ITAL[facility] KNOTTNEW MEXICO BEHAVIORAL HEALTH INSTITUTE AT LAS VEGASMarguerite ([facility])[address] Lymphocytes (Bld) [#/Vol] 1.5 10*3/uL Normal 1.0-4.3 [facility] Comment on above: Performed By: #### L [id number] ####Event Marketing Intern: LESLEE MARY ([phone])[facility]ITAL[facility] [place] ([facility])[address] Lymphocytes/100 WBC (Bld) 21.1 % Normal 15.0-45.0 [facility] Comment on above: Performed By: #### L [id number] ####Event Marketing Intern: LESLEE MARY ([phone])[facility] ([facility])[address] MCH (RBC) [Entitic mass] 33.0 pg Normal 26.0-34.0 [facility] Comment on above: Performed By: #### L [id number] ####Event Marketing Intern: LESLEE MCNEILLNinoskaTYRONE ([phone])[facility]ITAL[facility] [place] ([facility])[address] MCHC 32.3 % Normal 30.5-36.0 [facility] Comment on above: Performed By: #### L [id number] ####Event Marketing Intern: LESLEE TURKTYRONE ([phone])[facility] ([facility])[address] MCV (RBC) [Entitic vol] 102.1 fL High 77.0-99.0 [facility] Comment on above: Performed By: #### L [id number] ####Event Marketing Intern: LESLEE TURKTYRONE ([phone])[facility] ([facility])[address] Monocytes (Bld) [#/Vol] 0.4 10*3/uL Normal 0.0-0.9 [facility] Comment on above: Performed By: #### L [id number] ####Event Marketing Intern: LESLEE HERNANDEZ ([phone])[facility] [place] ([facility])[address] Monocytes/100 WBC (Bld) 5.4 % Normal 5.0-13.0 [facility] Comment on above: Performed By: #### L [id number] ####Event Marketing Intern: LESLEE TORRESCER ([phone])[facility] [place] ([facility])[address] NEUTROPHILS ABSOLUTE 5.3 10*3/uL Normal 1.8-7.5 [facility] Comment on above: Performed By: #### L [id number] ####Event Marketing Intern: LESLEE TURKTYRONE ([phone])[facility] [place] ([facility])[address] Neutrophils/100 WBC (Bld) 72.8 % Normal 38.0-82.0 [facility] Comment on above: Performed By: #### L [id number] ####Event Marketing Intern: LESLEE HERNANDEZ ([phone])[facility] [place] ([facility])[address] NRBC 0.3 /100 WBCs Normal 0.0-2.0 [facility] Comment on above: Performed By: #### L [id number] ####Event Marketing Intern: LESLEE HERNANDEZ ([phone])[facility] [place] ([facility])[address] Platelet mean volume (Bld) [Entitic vol] 10.2 fL Normal 9.0-12.7 [facility] Comment on above: Performed By: #### L [id number] ####Event Marketing Intern: LESLEE HERNANDEZ ([phone])[facility] [place] ([facility])[address] Platelets (Bld) [#/Vol] 261 10*3/uL Normal 140-440 [facility] Comment on above: Performed By: #### L [id number] ####Event Marketing Intern: LESLEE HERNANDEZ ([phone])[facility] ([facility])[address] RBC (Bld) [#/Vol] 4.76 10*6/uL Normal 4.40-5.90 [facility] Comment on above: Performed By: #### L [id number] ####Event Marketing Intern: LESLEE HERNANDEZ ([phone])[facility] ([facility])[address] WBC (Bld) [#/Vol] 7.3 10*3/uL Normal 3.6-10.7 [facility] Comment on above: Performed By: #### L [id number] ####Event Marketing Intern: LESLEE HERNANDEZ ([phone])[facility] [place] ([facility])[address] COMPLETE URINALYSISon 2024 AMORPHOUS CRYSTALS (#/HPF) IN URINE Few Abnormal Negative [facility] Comment on above: Performed By: #### L [id number] ####Event Marketing Intern: LESLEE HERNANDEZ ([phone])[facility] [place] ([facility])[address] BACTERIA (#/HPF) IN URINE Negative Normal Negative [facility] Comment on above: Performed By: #### L [id number] ####Event Marketing Intern: LESLEE HERNANDEZ ([phone])[facility] [place] ([facility])[address] BILIRUBIN, TOTAL PRESENCE IN URINE Negative Normal Negative [facility] Comment on above: Performed By: #### L [id number] ####Event Marketing Intern: LESLEE HERNANDEZ ([phone])[facility] [place] ([facility])[address] Clarity (U) Turbid Abnormal Clear [facility] Comment on above: Performed By: #### L [id number] ####Event Marketing Intern: LESLEE HERNANDEZ ([phone])[facility] ([facility])[address] Color (U) Yellow Normal Lt. Yellow [facility] Comment on above: Performed By: #### L [id number] ####Event Marketing Intern: LESLEE TURKTYRONE ([phone])[facility] ([facility])[address] GLUCOSE (MG/DL) IN URINE Normal Normal Normal (<70) [facility] Comment on above: Performed By: #### L [id number] ####Event Marketing Intern: LESLEE HERNANDEZ ([phone])[facility] ([facility])[address] HEMOGLOBIN PRESENCE IN URINE Negative Normal Negative [facility] Comment on above: Performed By: #### L [id number] ####Event Marketing Intern: LESLEE HERNANDEZ ([phone])[facility] ([facility])[address] [place] [address] [place] HYALINE CASTS (#/LPF) IN URINE SEDIMENT BY MICROSCOPY 3-5 Abnormal Negative [facility] Comment on above: Performed By: #### L [id number] ####Event Marketing Intern: LESLEE HERNANDEZ ([phone])[facility])[address] Ketones Ql (U) Negative Normal Negative [facility] Comment on above: Performed By: #### L [id number] ####Event Marketing Intern: LESLEE HERNANDEZ ([phone])[facility])[address] LEUKOCYTE ESTERASE PRESENCE IN URINE BY TEST STRIP Negative Normal Negative [facility] Comment on above: Performed By: #### L [id number] ####Event Marketing Intern: LESLEE HERNANDEZ ([phone])[facility] ([facility])[address] [place] [address] [place] MUCUS (#/LPF) IN URINE SEDIMENT Few Normal Negative [facility] Comment on above: Performed By: #### L [id number] ####Event Marketing Intern: LESLEE HERNANDEZ ([phone])[facility]ITALA BARBNEW MEXICO BEHAVIOR[facility] HE[facility] IN[facility] AT L[facility] VEGASN (SBHL[facility])[address] NITRITE PRESENCE IN URINE Negative Normal Negative [facility] Comment on above: Performed By: #### L [id number] ####Event Marketing Intern: LESLEE HERNANDEZ ([phone])[facility]ITALA BARBNEW MEXICO [facility] IN[facility] AT L[facility] VEGASN (SBHL[facility])[address] pH (U) 5.5 [pH] Normal 5.0-8.0 [facility] Comment on above: Performed By: #### L [id number] ####Event Marketing Intern: LESLEE HERNANDEZ ([id number])[facility] [place] ([facility])[address] Protein (U) [Mass/Vol] 100 mg/dL Abnormal Negative [facility] Comment on above: Performed By: #### L [id number] ####Event Marketing Intern: LESLEE HERNANDEZ ([phone])[facility]A BARBNEW MEX[facility]ASN ([facility])[address] [place] [address] [place] RBC (#/HPF) IN URINE SEDIMENT 3-5 Abnormal 0-2 [facility] Comment on above: Performed By: #### L [id number] ####Event Marketing Intern: LESLEE HERNANDEZ ([phone])[facility] [place] ([facility])[address] Specific gravity (U) [Rel density] 1.030 Normal 1.005-1.030 [facility] Comment on above: Performed By: #### L [id number] ####Event Marketing Intern: LESLEE HERNANDEZ ([phone])[facility]A BARBNEW MEXICO [facility] AT L[facility] VEGASN (SBHL[facility])[address] [place] [address] [place] SPERMATOZOA (#/HPF) IN URINE SEDIMENT Few Abnormal Negative [facility] Comment on above: Performed By: #### L [id number] ####Event Marketing Intern: LESLEE HERNANDEZ ([phone])[facility]A BARBNEW MEX[facility] AT L[facility] VE[facility]ASN (HLAB)[address] [place] [address] [place] SQUAMOUS EPITHELIAL CELLS (#/HPF) IN URINE SEDIMENT 0-2 Normal 3-5 [facility] Comment on above: Performed By: #### L [id number] ####Event Marketing Intern: LESLEE HERNANDEZ ([phone])[facility] [place] ([facility])[address] UROBILINOGEN (MG/DL) IN URINE Normal Normal Normal (0-1) [facility] Comment on above: Performed By: #### L [id number] ####Event Marketing Intern: LESLEE HERNANDEZ ([phone])[facility] [place] ([facility])[address] WBC (LEUKOCYTE) (#/HPF) IN URINE SEDIMENT 3-5 Normal 0-5 [facility] Comment on above: Performed By: #### L [id number] ####Event Marketing Intern: LESLEE HERNANDEZ ([phone])[facility] [place] ([facility])[address] COMPREHENSIVE METABOLIC PANE Ming 07-03-2024 Albumin [Mass/Vol] 3.3 g/dL Low 3.5-5.0 [facility] Comment on above: Performed By: #### L [id number], [id number], LAB99, LAB17 ####Event Marketing Intern: LESLEE HERNANDEZ ([phone])[facility] [place] ([facility])[address] ALP [Catalytic activity/Vol] 267 U/L High 40-150 [facility] Comment on above: Performed By: #### L [id number], [id number], LAB99, LAB17 ####Event Marketing Intern: LESLEE HERNANDEZ ([phone])[facility] [place] ([facility])[address] [place] [address] [place] ALT [Catalytic activity/Vol] 159 U/L High <40 [facility] Comment on above: Performed By: #### L [id number], [id number], LAB99, LAB17 ####Event Marketing Intern: LESLEE HERNANDEZ ([phone])[facility] [place] ([facility])[address] Anion gap [Moles/Vol] 12 mmol/L Normal 3-13 [facility] Comment on above: Performed By: #### L [id number], [id number], LAB99, LAB17 ####Event Marketing Intern: LESLEE HERNANDEZ ([phone])[facility] HOSPITALKeyon KNOTTNEW MEXICO BEHAVIORAL HEALTH INSTITUTE AT LAS VEGASMarguerite (SBHLAB)[address] AST [Catalytic activity/Vol] 56 U/L High <34 [facility] Comment on above: Performed By: #### L [id number], [id number], LAB99, LAB17 ####Event Marketing Intern: LESLEE HERNANDEZ ([phone])[facility] LELONEW MEXICO BEHAVIORAL HEALTH INSTITUTE AT LAS VEGASMarguerite (SBHLAB)[address] Bilirubin [Mass/Vol] 2.4 mg/dL High <1.2 [facility] Comment on above: Performed By: #### L [id number], [id number], LAB99, LAB17 ####Event Marketing Intern: LESLEE HERNANDEZ ([phone])[facility] LELOBANNER [facility] (SB[facility])[address] Calcium [Mass/Vol] 9.0 mg/dL Normal 8.4-10.2 [facility] Comment on above: Performed By: #### L [id number], [id number], LAB99, LAB17 ####Event Marketing Intern: LESLEE HERNANDEZ ([phone])[facility]OSPITALKeyon [place] ([facility])[address] [place] [address] [place] Chloride [Moles/Vol] 110 mmol/L High 98-107 [facility] Comment on above: Performed By: #### L [id number], [id number], LAB99, LAB17 ####Event Marketing Intern: LESLEE HERNANDEZ ([id number])[facility]OSPITALKeyon [facility]TBANNER [facility] ([facility])[address] [place] [address] [place] CO2 [Moles/Vol] 20 mmol/L Low 22-29 [facility] Comment on above: Performed By: #### L [id number], [id number], LAB99, LAB17 ####Event Marketing Intern: LESLEE HERNANDEZ ([phone])[facility] ([facility])[address] Creatinine [Mass/Vol] 2.01 mg/dL High 0.72-1.25 [facility] Comment on above: Performed By: #### L [id number], [id number], LAB99, LAB17 ####Event Marketing Intern: LESLEE HERNANDEZ ([id number])[facility] ([facility])[address] [place] [address] [place] GLOMERULAR FILTRATION RATE ML/MIN/1.73 SQ M.PREDICTED 40.7 mL/min/1.73m*2 Low >60.0 [facility] Comment on above: Result Comment: Calc ulation based on the Chronic Kidney Disease Epidemiology Collaboration (CKD-EPI) equation refit without adjustment for race Performed By: #### L [id number], [id number], LAB99, LAB17 ####Event Marketing Intern: LESLEE HERNANDEZ ([phone])[facility] ([facility])[address] Glucose [Mass/Vol] 126 mg/dL High 74-100 [facility] Comment on above: Performed By: #### L [id number], [id number], LAB99, LAB17 ####Event Marketing Intern: LESLEE HERNANDEZ ([id number])[facility] ([facility])[address] [place] [address] [place] Potassium [Moles/Vol] 4.4 mmol/L Normal 3.5-5.1 [facility] Comment on above: Result Comment: [facility] potassium values may be up to 0.5 mmol/L lower than serum values. Performed By: #### L [id number], [id number], LAB99, LAB17 ####Event Marketing Intern: LESLEE HERNANDEZ ([phone])[facility] ([facility])[address] Protein [Mass/Vol] 6.5 g/dL Normal 6.4-8.3 [facility] Comment on above: Performed By: #### L [id number], [id number], LAB99, LAB17 ####Event Marketing Intern: LESLEEFIDELIA HERNANDEZ ([phone])[facility] ([facility])[address] Sodium [Moles/Vol] 142 mmol/L Normal 136-145 [facility] Comment on above: Performed By: #### L [id number], [id number], LAB99, LAB17 ####Event Marketing Intern: LESLEEFIDELIA HERNANDEZ ([id number])[facility] ([facility])[address] Urea nitrogen [Mass/Vol] 35 mg/dL High 8-21 [facility] Comment on above: Performed By: #### L [id number], [id number], LAB99, LAB17 ####Event Marketing Intern: LESLEE HERNANDEZ ([id number])[facility] ([facility])[address] [place] [address] CT ABDOMEN PELVIS WO IV CONT RASTon 07-03-2024 CT ABDOMEN PELVIS WO IV CONTRAST Normal [facility] CT Abdomen and Pelvis WO con traston 07-03-2024 [facility] 1980 [id number] Exam Date/Time: 07/03/2024 09:40 Procedure: CT ABDOMEN [...] 07/03/2024 [facility] 1980 [id number] Exam Date/Time: 07/03/2024 09:40 Procedure: [facility]BD[facility]narrative[facility] Comprehensive metabolic 1998 panelon 07-03-2024 Albumin [Mass/Vol] 3.3 g/dL Low 3.5 - 5.0 g/dL [facility] ALP [Catalytic activity/Vol] 267 U/L High 40 - 150 U/L [facility] ALT [Catalytic activity/Vol] 159 U/L High NINF - 40 U/L [facility] Anion gap [Moles/Vol] 12 mmol/L 3 - 13 mmol/L [facility] AST [Catalytic activity/Vol] 56 U/L High NINF - 34 U/L [facility] Bilirubin [Mass/Vol] 2.4 mg/dL High [facility] CORPORATIONF - 1.2 mg/dL [facility] Calcium [Mass/Vol] 9 mg/dL 8.4 - 10. 2 mg/dL [facility] Chloride [Moles/Vol] 110 mmol/L High 98 - 10 7 mmol/L [facility] CO2 [Moles/Vol] 20 mmol/L Low 22 - 29 mmol/L [facility] Creatinine [Mass/Vol] 2.01 mg/dL High 0.72 - 1.25 mg/dL [facility] GFR/1.73 sq M.predicted (S/P/Bld) [Vol rate/Area] 40.7 mL/min Low - PINF [facility] Comment on above: Calculation based on the Chronic Kidney Disease Epidemiology Collaboration (CKD-EPI) equation refit without adjustment for race Glucose [Mass/Vol] 126 mg/dL High 74 - 100 mg/dL [facility] Interpretation and review of laboratory results Abnormal [facility] Potassium [Moles/Vol] 4.4 mmol/L 3.5 - 5.1 mmol/L [facility] Comment on above: Plasma potassium heidi ues may be up to 0.5 mmol/L lower than serum values. Protein [Mass/Vol] 6.5 g/dL 6.4 - 8.3 g/dL [facility] Sodium [Moles/Vol] 142 mmol/L 136 - 145 mmol/L [facility] Urea nitrogen [Mass/Vol] 35 mg/dL High 8 - 21 mg/dL [facility] ECG 12-LEADon 07-03-2024 ECG 12-LEAD Normal [facility] ED Nursing Noteon 07-03-2024 ED Nursing Note [facility] arrived to transport pt to [facility] . Pt ambulated to stretch without difficulty. Pt A&O, calm, and cooperative, no signs of distress noted. VS stable. Resp even, non labored. Normal [facility] ED Nursing Note Attempted to call report to T1 at [facility] no answer. Normal [facility] ED Nursing Note Pt given bedside table to food tray Normal [facility] ED Nursing Note Pt given urinal aske d to void if able. Pt states he does not have to urinate at this time. Normal [facility] ED Nursing Note Patient refusing to let this RN attempt IV without ultra sound. Patient states I dont want you to poke me without it Normal [facility] ED Nursing Note This RN attempted IV stick multiple times and was unsuccessful. Charge nurse notified. Normal [facility] ED Nursing Note Patient requesting t o be placed on oxygen. Patients oxygen saturation was 98% on room air at time of triage. Patient is now 95% on room air. Patient advised that he does not require oxygen at this time. Normal [facility] ED Nursing Note Patient reports he has a history of heart disease and stage 3 kidney disease. Patient reports shob started last pm. 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 Normal [facility] ED Provider Noteon ED Provider Note Normal [facility] HIGH SENSITIVITY TROPONIN, S ERIAL BASELINEon 07-03-2024 TROPONIN HIGH SENSITIVITY BASELINE 39 ng/L High <=35 [facility] Comment on above: Performed By: #### L [id number], [id number], LAB99, LAB17 ####Event Marketing Intern: LESLEE HERNANDEZ ([phone])[facility] ([facility])[address] HIGH SENSITIVITY TROPONIN, S ERIAL, SECOND TESTon 07-03-2024 TROPONIN HS DELTA, BASELINE TO SECOND -6 ng/L Normal <=2 [facility] Comment on above: Result Comment: This specimen [...] further clinical guidance. Performed By: #### L [id number] ####Event Marketing Intern: LESLEE HERNANDEZ ([phone])[facility] ([facility])[address] TROPONIN HS, SERIAL REFLEX, TEST TWO 33 ng/L Normal <=35 [facility] Comment on above: Performed By: #### L [id number] ####Event Marketing Intern: LESLEE HERNANDEZ ([phone])[facility] ([facility])[address] [place] [address] LACTIC ACID WITH REFLEXon Lactate [Moles/Vol] 2.5 mmol/L High 0.5-2.2 [facility] Comment on above: Performed By: #### L [id number] ####Event Marketing Intern: NICOLE BOWERS ([phone])[facility] ([facility])[address] [place] [address] Lactate [Moles/Vol] 2.2 mmol/L Normal 0.5-2.2 [facility] Comment on above: Performed By: #### L [id number] ####Event Marketing Intern: LESLEE HERNANDEZ ([phone])[facility] ([facility])[address] [place] [address] LIPASEon 07-03-2024 Lipase [Catalytic activity/Vol] 18 U/L Normal <55 [facility] Comment on above: Performed By: #### L [id number], [id number], LAB99, LAB17 ####Event Marketing Intern: LESLEE HERNANDEZ ([phone])[facility] ([facility])[address] [place] [address] Laboratory - Chemistry and C hemistry - challengeon 07-03-2024 Lactate [Moles/Vol] 2.5 mmol/L High 0.5 - 2. 2 mmol/L [facility] Lactate [Moles/Vol] 2.2 mmol/L 0.5 - 2. 2 mmol/L [facility] Lipase [Catalytic activity/Vol] 18 U/L NINF - 55 U/L [facility] Laboratory - Chemistry and C hemistry - challengeOrdered By: Zoie Stein on 07-03-2024 Base excess Calc (BldV) [Moles/Vol] -6.8000 mmol/L Low -3.0 - 3.0 mmol/L [facility] CO2 (BldV) [Partial pressure] 36.1 mm[Hg] Low [facility] CO2 [Moles/Vol] 19.5 mmol/L Low 23.0 - 30.0 mmol/L [facility] HCO3 (Bld) [Moles/Vol] 18.4 mmol/L Low 21.0 - 30.0 mmol/L [facility] Oxygen (BldV) [Partial pressure] 39.3 mm[Hg] mm Hg [facility] pH (BldV) 7.325 [pH] 7.320 - 7.420 [facility] Laboratory - Hematology and Cell countsOrdered By: Zoie Stein on 07-03-2024 Hemoglobin (Bld) [Mass/Vol] 15.2 g/dL Screen only [facility] Lipase [Catalytic activity/V ol]on 07-03-2024 Interpretation and review of laboratory results Normal [facility] NT PRO BNPon 07-03-2024 Natriuretic peptide B (Bld) [Mass/Vol] 72898 pg/mL High <125 [facility] Comment on above: Performed By: #### L [id number], [id number], LAB99, LAB17 ####Event Marketing Intern: LESLEE HERNANDEZ ([phone])[facility] LELONEW [facility] L[facility] VEGASMarguerite (SBHLAB)[address] [id number] [facility] [place] Natriuretic peptide B [Mass/ Vol]on 07-03-2024 Interpretation and review of laboratory results Abnormal [facility] Natriuretic peptide B (Bld) [Mass/Vol] 07167 pg/mL High NINF - 125 pg/mL Cass [...] On 07-03-2024 20:41:11 EST by Cornelio Joseph [facility] Interpretation and review of laboratory results Normal [facility] Troponin HS Delta, Baseline to Second -6 ng/L NINF - 2 ng/L [facility] Comment on above: This specimen was [...] Second 33 ng/L NINF - 35 ng/L [facility] Interpretation and review of laboratory results Abnormal [facility] Troponin HS, Serial Baseline 39 ng/L High NINF - 35 ng/L [facility] No Panel InformationOrdered By: Cornelio Joseph on 07-03-2024 P [place] 60 degrees [facility] [employer] Work Phone: NM Interval 153 ms [employer] Work Phone: QRS [place] -24 degrees [employer] Work Phone: QRSD Interval 97 ms [facility] [employer] Work Phone: QT Interval 350 ms [employer] Work Phone: QTC Interval 480 ms [employer] Work Phone: T Wave [place] 89 degrees [employer] Work Phone: [employer] Work Phone: No Panel InformationOrdered By: Zoie Stein on 07-03-2024 Interpretation and review of laboratory results Abnormal [facility] Source Of Oxygen Room Air [facility] Assessment of oxygenation is best done with an arterial blood gas determination. Reference ranges for pO2, bicarbonate, and base excess are for mixed venous blood. Specimens drawn from a peripheral vein will often have higher values. [facility] UREA NITROGEN, URINEon 07-03 CREATININE, URINE 115.3 mg/dL Normal 63.0-166.0 [facility] Comment on above: Performed By: #### L [id number] ####Event Marketing Intern: NICOLE BOWERS ([phone])[place] [address] [place] UREA (BUN), URINE, FRACTIONAL EXCRETION 30.9 Normal [facility] Comment on above: Result Comment: Frac tional excretion of urea under 35% is consistent with a prerenal cause. Performed By: #### L [id number] ####Event Marketing Intern: NICOLE BOWERS ([phone])[facility] ([facility])[address] [place] [address] UREA (BUN), URINE, TUBULAR REABSORPTION 0.7 Normal [facility] Comment on above: Performed By: #### L [id number] ####Event Marketing Intern: NICOLE BOWERS ([phone])[facility])[address] [place] [address] [place] UREA NITROGEN, URINE 620 mg/dL Normal [facility] [employer] [facility] Comment on above: Performed By: #### L [id number] ####Event Marketing Intern: NICOLE BOWERS ([phone])[facility] ([facility])[address] [place] [address] US ABDOMEN LIMITEDon 025 US ABDOMEN LIMITED Normal [facility] US Abdomen limitedon 025 1. Positive sonographic [...] MD Electronically Signed Date/Time: 07/03/2024 12:18 PM [facility] EM[facility] RADIOLOGY SYSTEM Patient Name: CARLO [...] adjacent free fluid is present. Per the medical technologist microbiology, the sonographic Melendez's sign was positive. Bile ducts: No intrahepatic and extrahepatic biliary dilatation Common bile duct: 2 mm Right kidney: Normal size measuring 9.6 cm. Normal parenchymal echogenicity without solid mass or hydronephrosis. Ascites: Small amount of free fluid surrounding the liver and gallbladder [facility] Shane Galarza MD - 07/03/2024 Patient [...] adjacent free fluid is present. Per the medical technologist microbiology, the sonographic Melendez's sign was positive. Bile [...] Electronically Signed Date/Time: 07/03/2024 12:18 PM EST [facility] Radiology Study observation (narrative) [facility] Urinalysis complete panel (U )Ordered By: Helder Blackwell on 07-03-2024 Amorphous Crystals, Urine Few Abnormal Negative /HPF [facility] Bacteria LM.HPF (Urine sed) [#/Area] Negative Negative /HPF [facility] Bilirubin Ql (U) Negative Negative mg/dL [facility] Clarity (U) Turbid Abnormal Clear [facility] Color (U) Yellow Lt. Yellow [facility] Epithelial cells.squamous LM.HPF (Urine sed) [#/Area] 0-2 [facility] Glucose Ql (U) Normal Normal (<70) mg/dL [facility] Hemoglobin Ql (U) Negative Negative mg/dL [facility] Hyaline casts Auto (Urine sed) [#/Area] 3-5 Abnormal Negative /LPF [facility] Healt h Interpretation and review of laboratory results Abnormal [facility] Ketones (U) [Mass/Vol] Negative Negat dai mg/dL [facility] Leukocyte esterase Test strip Ql (U) Negative Negative Nicky/uL [facility] Mucus LM.HPF (Urine sed) [#/Area] Few Negative /LPF [facility] Nitrite Ql (U) Negative Negative [facility] th pH (U) 5.5 [pH] 5.0 - 8.0 pH [facility] Protein (U) [Mass/Vol] 100 mg/dL Abnormal Negative [facility] RBC LM.HPF (Urine sed) [#/Area] 3-5 Abnormal [facility] Specific gravity (U) [Rel density] 1.03 1.005 - 1.030 [facility] Spermatozoa LM.HPF (Urine sed) [#/Area] Few Abnormal Negative /HPF [facility] Urobilinogen (U) [Mass/Vol] Normal Normal (0-1) mg/dL [facility] WBC LM.HPF (Urine sed) [#/Area] 3-5 [facility] Vital signsOrdered By: Nadira christianson Opal on 07-03-2024 Heart rate 113 /min bpm [facility] Work Phone: Vital signsOrdered By: Zoie Stein on 07-03-2024 Oxygen saturation in Venous blood 60.4 % [facility] XR Chest Single viewon 07-03 FINDINGS [...] MD Electronically Signed Date/Time: 07/03/2024 10:08 AM [facility] [employer] Patient Name: CARLO MEDINA : 1980 Exam Date/Time: 07/03/2024 09:50 Procedure: XR CHEST 1 VIEW Ordering Provider: DOVER CONNOR Reason For Exam: sob hx chf CHEST CLINICAL INDICATION: Dyspnea TECHNIQUE: AP portable chest COMPARISON: 06/19/2024 [facility] RADIOLOGY SYSTEM Shane Galarza MD - 07/03/2024 [facility] Name: [facility]LO MEDINA : 1980 [id number] Exam Date/Time: 07/03/2024 09:50 Procedure: XR CHEST [...] Electronically Signed Date/Time: 07/03/2024 10:08 AM EST [facility] Radiology Study observation (narrative) [facility] XR Chest Single viewOrdered By: Shane Galarza on 07-03-2024 [facility] Work Phone: 29on 07-01-2024 29 Addended by: SEPIDEH TOWNSEND on: 08/20/2024 04:37 PM Modules accepted: Orders Normal [facility] No Panel Informationon 07-01 Sinus Tachycardia -Left atrial enlargement. Voltage criteria for LVH (R(V6) exceeds 2.26 mV). -Nonspecific T-abnormality. ABNORMAL [facility] Progress Noteon 07-01-2024 Progress Note Normal [facility] 36on 06-24-2024 36 Normal [facility] 36on 06-22-2024 36 Normal [facility] [id number] 06-21-2024 [id number] Normal [facility] Nursing Noteon 06-21-2024 Nursing Note Gave patient discharge instructions. Patient verbalized understanding. Discussed the importance of taking the medications as prescribed. Importance of following up with Dr. Burnette and Dr Mccullough. IV discontinued. Meds to beds delivered scripts. Normal [facility] Nursing Note Notified Dr. Shayla Marcano APRN from cardiology regarding 20 beat run of [place] through message. ] Normal [facility] Progress Noteon 06-21-2024 Progress Note Normal [facility] Progress Note Normal [facility] Progress Note Normal [facility] Progress Note Normal [facility] 30on 06-20-2024 30 Normal [facility] [id number] 06-20-2024 [id number] Normal [facility] BASIC METABOLIC PANELon 12-2 Anion gap [Moles/Vol] 9 mmol/L Normal 3-13 [facility] Comment on above: Performed By: #### L AB103, [id number], LAB15 ####Event Marketing Intern: LESLEE HERNANDEZ ([phone])[facility] (SBHLAB)[address] Calcium [Mass/Vol] 7.8 mg/dL Low 8.4-10.2 [facility] Comment on above: Performed By: #### L AB103, [id number], LAB15 ####Event Marketing Intern: LESLEE HERNANDEZ ([id number])[facility] (SBHLAB)[address] [place] [address] [place] Chloride [Moles/Vol] 104 mmol/L Normal 98-107 [facility] Comment on above: Performed By: #### L AB103, [id number], LAB15 ####Event Marketing Intern: LESLEE HERNANDEZ ([id number])[facility] ([facility])[address] [place] [address] [place] CO2 [Moles/Vol] 22 mmol/L Normal 22-29 [facility] Comment on above: Performed By: #### L AB103, [id number], LAB15 ####Event Marketing Intern: LESLEE HERNANDEZ ([phone])[facility] (SBHLAB)[address] [place] [address] [place] Creatinine [Mass/Vol] 1.55 mg/dL High 0.72-1.25 [facility] Comment on above: Performed By: #### L AB103, [id number], LAB15 ####Event Marketing Intern: LESLEE HERNANDEZ ([id number])[facility] ([facility])[address] [place] [address] GLOMERULAR FILTRATION RATE ML/MIN/1.73 SQ M.PREDICTED 55.6 mL/min/1.73m*2 Low >60.0 [facility] Comment on above: Result Comment: Calc ulation based on the Chronic Kidney Disease Epidemiology Collaboration (CKD-EPI) equation refit without adjustment for race Performed By: #### L AB103, [id number], LAB15 ####Event Marketing Intern: LESLEE HERNANDEZ ([id number])[facility] ([facility])[address] [place] [address] Glucose [Mass/Vol] 171 mg/dL High 74-100 [facility] Comment on above: Performed By: #### L AB103, [id number], LAB15 ####Event Marketing Intern: LESLEE HERNANDEZ ([id number])[facility] ([facility])[address] [place] [address] Potassium [Moles/Vol] 3.8 mmol/L Normal 3.5-5.1 [facility] Comment on above: Result Comment: [facility] potassium values may be up to 0.5 mmol/L lower than serum values. Performed By: #### L AB103, [id number], LAB15 ####Event Marketing Intern: LESLEE HERNANDEZ ([id number])[facility] ([facility])[address] [place] [address] Sodium [Moles/Vol] 135 mmol/L Low 136-145 [facility] Comment on above: Performed By: #### L AB103, [id number], LAB15 ####Event Marketing Intern: LESLEE HERNANDEZ ([id number])[facility] ([facility])[address] [place] [address] Urea nitrogen [Mass/Vol] 22 mg/dL High 8-21 [facility] Comment on above: Performed By: #### L AB103, [id number], LAB15 ####Event Marketing Intern: LESLEE HERNANDEZ ([id number])[facility] [place] (SBHL[facility])[address] [place] [address] Basic metabolic 1998 panelon 06-20-2024 Anion gap [Moles/Vol] 9 mmol/L 3 - 13 mmol/L [facility] [employer] Calcium [Mass/Vol] 7.8 mg/dL Low 8.4 - 10. 2 mg/dL [facility] Chloride [Moles/Vol] 104 mmol/L 98 - 10 7 mmol/L [facility] CO2 [Moles/Vol] 22 mmol/L 22 - 29 mmol/L [facility] [facility] Creatinine [Mass/Vol] 1.55 mg/dL High 0.72 - 1.25 mg/dL [facility] GFR/1.73 sq M.predicted (S/P/Bld) [Vol rate/Area] 55.6 mL/min Low - PINF [facility] Comment on above: Calculation based on the Chronic Kidney Disease Epidemiology Collaboration (CKD-EPI) equation refit without adjustment for race Glucose [Mass/Vol] 171 mg/dL High 74 - 100 mg/dL [facility] Interpretation and review of laboratory results Abnormal [facility] Potassium [Moles/Vol] 3.8 mmol/L 3.5 - 5.1 mmol/L [facility] Comment on above: Plasma potassium heidi ues may be up to 0.5 mmol/L lower than serum values. Sodium [Moles/Vol] 135 mmol/L Low 136 - 145 mmol/L [facility] [facility] Urea nitrogen [Mass/Vol] 22 mg/dL High 8 - 21 mg/dL [facility] CBC W Auto Differential pane l (Bld)on 06-20-2024 Basophils (Bld) [#/Vol] 0 10*3/uL 0.0 - 0.2 10*3/uL [employer] [facility] Basophils/100 WBC (Bld) 0.2 % 0.0 - 2.0 % [facility] [facility] Eosinophils (Bld) [#/Vol] 0.1 10*3/uL 0.0 - 0.5 10*3/uL [employer] [facility] Eosinophils/100 WBC (Bld) 1 % 0.0 - 6.0 % [facility] Erythrocyte distribution width (RBC) [Ratio] 13.6 % 11.5 - 15.0 % [facility] Hematocrit (Bld) [Volume fraction] 41.9 % 40.0 - 52.0 % [facility] Hemoglobin (Bld) [Mass/Vol] 13.7 g/dL 13.0 - 18.0 g/dL [facility] [facility] Immature granulocytes (Bld) [#/Vol] 0 10*3/uL NINF - 0.1 10*3/uL [facility] Immature granulocytes/100 WBC (Bld) 0.2 % 0.0 - 2.0 % [facility] Interpretation and review of laboratory results Abnormal [facility] Lymphocytes (Bld) [#/Vol] 1.6 10*3/uL 1.0 - 4.3 10*3/uL [facility] Lymphocytes/100 WBC (Bld) 27.7 % 15.0 - 45.0 % [facility] MCH (RBC) [Entitic mass] 32.4 pg 26.0 - 34.0 pg [facility] MCHC (RBC) [Mass/Vol] 32.7 % 30.5 - 36.0 % [facility] MCV (RBC) [Entitic vol] 99.1 fL High 77.0 - 99.0 fL [facility] [facility] Monocytes (Bld) [#/Vol] 0.4 10*3/uL 0.0 - 0.9 10*3/uL [facility] Monocytes/100 WBC (Bld) 6.8 % 5.0 - 13.0 % [facility] Neutrophils (Bld) [#/Vol] 3.8 10*3/uL 1.8 - 7.5 10*3/uL [facility] Neutrophils/100 WBC (Bld) 64.1 % 38.0 - 82.0 % [facility] Nucleated RBC/100 WBC (Bld) [Ratio] 0 % [facility] Platelet mean volume (Bld) [Entitic vol] 10.5 fL 9.0 - 12.7 fL [facility] Platelets (Bld) [#/Vol] 202 10*3/uL 140 - 440 10*3/uL [facility] RBC (Bld) [#/Vol] 4.23 10*6/uL Low 4.40 - 5.9 0 10*6/uL [facility] WBC (Bld) [#/Vol] 5.9 10*3/uL 3.6 - 10.7 10*3/uL [facility] CBC WITH AUTO DIFFERENTIALon 06-20-2024 Basophils (Bld) [#/Vol] 0.0 10*3/uL Normal 0.0-0.2 [facility] Comment on above: Performed By: #### L [id number] ####Event Marketing Intern: LESLEE HERNANDEZ ([id number])[facility] (SBHLAB)[address] Basophils/100 WBC (Bld) 0.2 % Normal 0.0-2.0 [facility] Comment on above: Performed By: #### L [id number] ####Event Marketing Intern: LESLEE HERNANDEZ ([phone])[facility] [place] (SBHL[facility])[address] Eosinophils (Bld) [#/Vol] 0.1 10*3/uL Normal 0.0-0.5 [facility] Comment on above: Performed By: #### L [id number] ####Event Marketing Intern: LESLEE HERNANDEZ ([phone])[facility] (SB[facility])[address] [place] [address] Eosinophils/100 WBC (Bld) 1.0 % Normal 0.0-6.0 [facility] Comment on above: Performed By: #### L [id number] ####Event Marketing Intern: LESLEE HERNANDEZ ([id number])[facility] [place] (SB[facility])[address] [place] [address] Erythrocyte distribution width (RBC) [Ratio] 13.6 % Normal 11.5-15.0 [facility] Comment on above: Performed By: #### L [id number] ####Event Marketing Intern: LESLEE HERNANDEZ ([id number])[facility] [place] (SB[facility])[address] [place] [address] Hematocrit (Bld) [Volume fraction] 41.9 % Normal 40.0-52.0 [facility] Comment on above: Performed By: #### L [id number] ####Event Marketing Intern: LESLEE HERNANDEZ ([id number])[facility] [place] (SBHL[facility])[address] Hemoglobin (Bld) [Mass/Vol] 13.7 g/dL Normal 13.0-18.0 [facility] Comment on above: Performed By: #### L [id number] ####Event Marketing Intern: LESLEE HERNANDEZ ([id number])[facility]ASN (SBHLAB)[address] IMMATURE GRANS % 0.2 % Normal 0.0-2.0 [facility] Comment on above: Performed By: #### L [id number] ####Event Marketing Intern: LESLEE HERNANDEZ ([id number])[facility])[address] IMMATURE GRANS ABSOLUTE 0.0 10*3/uL Normal <0.1 [facility] Comment on above: Performed By: #### L [id number] ####Event Marketing Intern: LESLEE HERNANDEZ ([id number])[facility]BNEW [facility]N (SBHLAB)[address] [place] [address] Lymphocytes (Bld) [#/Vol] 1.6 10*3/uL Normal 1.0-4.3 [facility] Comment on above: Performed By: #### L [id number] ####Event Marketing Intern: LESLEE HERNANDEZ ([id number])[facility] ([facility])[address] [place] [address] Lymphocytes/100 WBC (Bld) 27.7 % Normal 15.0-45.0 [facility] Comment on above: Performed By: #### L [id number] ####Event Marketing Intern: LESLEE HERNANDEZ ([id number])[facility] ([facility])[address] MCH (RBC) [Entitic mass] 32.4 pg Normal 26.0-34.0 [facility] Comment on above: Performed By: #### L [id number] ####Event Marketing Intern: LESLEE HERNANDEZ ([id number])[facility] (SBHL[facility])[address] MCHC 32.7 % Normal 30.5-36.0 [facility] Comment on above: Performed By: #### L [id number] ####Event Marketing Intern: LESLEE TURKTYRONE ([id number])[facility] (SBHLAB)[address] MCV (RBC) [Entitic vol] 99.1 fL High 77.0-99.0 [facility] Comment on above: Performed By: #### L [id number] ####Event Marketing Intern: LESLEE HERNANDEZ ([id number])[facility] (SBHLAB)[address] Monocytes (Bld) [#/Vol] 0.4 10*3/uL Normal 0.0-0.9 [facility] Comment on above: Performed By: #### L [id number] ####Event Marketing Intern: LESLEE HERNANDEZ ([id number])[facility] [place] ([facility])[address] Monocytes/100 WBC (Bld) 6.8 % Normal 5.0-13.0 [facility] Comment on above: Performed By: #### L [id number] ####Event Marketing Intern: LESLEE HERNANDEZ ([id number])[facility] [place] ([facility])[address] NEUTROPHILS ABSOLUTE 3.8 10*3/uL Normal 1.8-7.5 [facility] Comment on above: Performed By: #### L [id number] ####Event Marketing Intern: LESLEE HERNANDEZ ([id number])[facility] [place] ([facility])[address] Neutrophils/100 WBC (Bld) 64.1 % Normal 38.0-82.0 [facility] Comment on above: Performed By: #### L [id number] ####Event Marketing Intern: LESLEE HERNANDEZ ([id number])[facility] ([facility]HL[facility])[address] NRBC 0.0 /100 WBCs Normal 0.0-2.0 [facility] Comment on above: Performed By: #### L [id number] ####Event Marketing Intern: LESLEE HERNANDEZ ([id number])[facility] [place] (SBHLAB)[address] Platelet mean volume (Bld) [Entitic vol] 10.5 fL Normal 9.0-12.7 [facility] Comment on above: Performed By: #### L [id number] ####Event Marketing Intern: LESLEE HERNANDEZ ([id number])[facility] ([facility])[address] Platelets (Bld) [#/Vol] 202 10*3/uL Normal 140-440 [facility] Comment on above: Performed By: #### L [id number] ####Event Marketing Intern: LESLEE HERNANDEZ ([id number])[facility] ([facility])[address] RBC (Bld) [#/Vol] 4.23 10*6/uL Low 4.40-5.90 [facility] Comment on above: Performed By: #### L [id number] ####Event Marketing Intern: LESLEE HERNANDEZ ([id number])[facility] ([facility])[address] [place] [address] WBC (Bld) [#/Vol] 5.9 10*3/uL Normal 3.6-10.7 [facility] Comment on above: Performed By: #### L [id number] ####Event Marketing Intern: LESLEE HERNANDEZ ([id number])[facility] (SBHLAB)[address] Consulton 06-20-2024 Consult Normal [facility] Laboratory - Chemistry and C hemistry - challengeon 06-20-2024 Magnesium [Mass/Vol] 2.1 mg/dL 1.6 - 2 .6 mg/dL [facility] MAGNESIUMon 06-20-2024 Magnesium [Mass/Vol] 2.1 mg/dL Normal 1.6-2.6 [facility] Comment on above: Result Comment: ALEJANDRO R COMMENTS:Higher values can be expected in females during menses. Performed By: #### L AB103, [id number], LAB15 ####Event Marketing Intern: LESLEE HERNANDEZ ([id number])[facility] (SBHLAB)[address] Magnesium [Mass/Vol]on 06-20 Interpretation and review of laboratory results Normal [facility] Higher values can be expected in females during menses. [facility] NT PRO BNPon 06-20-2024 Natriuretic peptide B (Bld) [Mass/Vol] 78648 pg/mL High <125 [facility] Comment on above: Performed By: #### L AB103, [id number], LAB15 ####Event Marketing Intern: LESLEE HERNANDEZ ([id number])[facility] (SB[facility])[address] Natriuretic peptide B [Mass/ Vol]on 06-20-2024 Interpretation and review of laboratory results Abnormal [facility] Natriuretic peptide B (Bld) [Mass/Vol] 07120 pg/mL High NINF - 125 pg/mL [facility] No Panel Informationon 06-20 [facility] Progress Noteon 06-20-2024 Progress [facility] Progress [facility] Progress Note Normal [facility] 30on 06-19-2024 30 Normal [facility] Progress Noteon 06-19-2024 Progress Note Normal [facility] Progress [facility] Progress Note Normal [facility] XR Chest 2 Viewson 4 Diffuse enlargement of the cardiac silhouette. Persistent but interval decrease in mild vascular congestion. Report Dictated on Electronically Signed By: Joel Hi MD Electronically Signed Date/Time: 06/19/2024 12:08 PM [facility] DEPARTMENT [employer] Patient Name: CARLO MEDINA : 1980 [...] the thoracic spine. No acute osseous findings. [facility] Joel Hi MD - 06/19/2024 Patient Name: [facility] MEDINA : 1980 [id number] Exam Date/Time: 06/19/2024 10:25 Procedure: XR CHEST [...] Electronically Signed Date/Time: 06/19/2024 12:08 PM EST [facility] Radiology Study observation (narrative) [facility] XR Chest 2 ViewsOrdered By: Joel Hi on 06-19-2024 [facility] Work Phone: BASIC METABOLIC PANELon 12-2 Anion gap [Moles/Vol] 9 mmol/L Normal 3-13 [facility] Comment on above: Performed By: #### L [id number], [id number], [id number], LAB15 ####Event Marketing Intern: LESLEE HERNANDEZ ([phone])[facility]ITAL[facility] [place] (SBHLAB)[address] Calcium [Mass/Vol] 7.9 mg/dL Low 8.4-10.2 [facility] Comment on above: Performed By: #### L AB106, [id number], [id number], LAB15 ####Event Marketing Intern: LESLEE HERNANDEZ ([phone])[facility]ITAL[facility] [place] (SBHLAB)[address] Chloride [Moles/Vol] 102 mmol/L Normal 98-107 [facility] Comment on above: Performed By: #### L AB106, [id number], [id number], LAB15 ####Event Marketing Intern: LESLEE HERNANDEZ ([phone])[facility]ITAL[facility] [place] (SBHLAB)[address] CO2 [Moles/Vol] 25 mmol/L Normal 22-29 [facility] Comment on above: Performed By: #### L AB106, [id number], [id number], LAB15 ####Event Marketing Intern: LESLEE HERNANDEZ ([phone])[facility]OSPITALKeyon [facility] (SBHLAB)[address] Creatinine [Mass/Vol] 1.91 mg/dL High 0.72-1.25 [facility] Comment on above: Performed By: #### L AB106, [id number], [id number], LAB15 ####Event Marketing Intern: LESLEE HERNANDEZ ([phone])[facility]OSPITALKeyon [facility] (SBHLAB)[address] [place] [address] [place] GLOMERULAR FILTRATION RATE ML/MIN/1.73 SQ M.PREDICTED 43.2 mL/min/1.73m*2 Low >60.0 [facility] Comment on above: Result Comment: Calc ulation based on the Chronic Kidney Disease Epidemiology Collaboration (CKD-EPI) equation refit without adjustment for race Performed By: #### L AB106, [id number], [id number], LAB15 ####Event Marketing Intern: LESLEE HERNANDEZ ([phone])[facility] (SBHLAB)[address] Glucose [Mass/Vol] 173 mg/dL High 74-100 [facility] Comment on above: Performed By: #### L AB106, [id number], [id number], LAB15 ####Event Marketing Intern: LESLEE HERNANDEZ ([phone])[facility] (SBHLAB)[address] Potassium [Moles/Vol] 4.0 mmol/L Normal 3.5-5.1 [facility] Comment on above: Result Comment: [facility] potassium values may be up to 0.5 mmol/L lower than serum values. Performed By: #### L AB106, [id number], [id number], LAB15 ####Event Marketing Intern: LESLEE HERNANDEZ ([phone])[facility] (SBHLAB)[address] Sodium [Moles/Vol] 136 mmol/L Normal 136-145 [facility] Comment on above: Performed By: #### L AB106, [id number], [id number], LAB15 ####Event Marketing Intern: LESLEE HERNANDEZ ([phone])[facility] (SBHLAB)[address] Urea nitrogen [Mass/Vol] 30 mg/dL High 8-21 [facility] Comment on above: Performed By: #### L AB106, [id number], [id number], LAB15 ####Event Marketing Intern: LESLEE HERNANDEZ ([phone])[facility] (SBHLAB)[address] Basic metabolic 1998 panelon 06-18-2024 Anion gap [Moles/Vol] 9 mmol/L 3 - 13 mmol/L [facility] Calcium [Mass/Vol] 7.9 mg/dL Low 8.4 - 10. 2 mg/dL [facility] Chloride [Moles/Vol] 102 mmol/L 98 - 10 7 mmol/L [facility] CO2 [Moles/Vol] 25 mmol/L 22 - 29 mmol/L [facility] Creatinine [Mass/Vol] 1.91 mg/dL High 0.72 - 1.25 mg/dL [facility] GFR/1.73 sq M.predicted (S/P/Bld) [Vol rate/Area] 43.2 mL/min Low - PINF [facility] Comment on above: Calculation based on the Chronic Kidney Disease Epidemiology Collaboration (CKD-EPI) equation refit without adjustment for race Glucose [Mass/Vol] 173 mg/dL High 74 - 100 mg/dL [facility] Interpretation and review of laboratory results Abnormal [facility] Potassium [Moles/Vol] 4 mmol/L 3.5 - 5.1 mmol/L [facility] Comment on above: Plasma potassium heidi ues may be up to 0.5 mmol/L lower than serum values. Sodium [Moles/Vol] 136 mmol/L 136 - 145 mmol/L [facility] Urea nitrogen [Mass/Vol] 30 mg/dL High 8 - 21 mg/dL [facility] CBC W Auto Differential pane l (Bld)on 06-18-2024 Basophils (Bld) [#/Vol] 0 10*3/uL 0.0 - 0.2 10*3/uL [facility] Basophils/100 WBC (Bld) 0.2 % 0.0 - 2.0 % [facility] Eosinophils (Bld) [#/Vol] 0 10*3/uL 0.0 - 0.5 10*3/uL [facility] Eosinophils/100 WBC (Bld) 0.6 % 0.0 - 6.0 % [facility] Erythrocyte distribution width (RBC) [Ratio] 13.9 % 11.5 - 15.0 % [facility] Hematocrit (Bld) [Volume fraction] 46.5 % 40.0 - 52.0 % [facility] Hemoglobin (Bld) [Mass/Vol] 15 g/dL 13.0 - 18.0 g/dL [facility] Immature granulocytes (Bld) [#/Vol] 0 10*3/uL NINF - 0.1 10*3/uL [facility] Immature granulocytes/100 WBC (Bld) 0.2 % 0.0 - 2.0 % [facility] Interpretation and review of laboratory results Abnormal [facility] Lymphocytes (Bld) [#/Vol] 1.8 10*3/uL 1.0 - 4.3 10*3/uL [facility] Lymphocytes/100 WBC (Bld) 34.9 % 15.0 - 45.0 % [facility] MCH (RBC) [Entitic mass] 32.2 pg 26.0 - 34.0 pg [facility] MCHC (RBC) [Mass/Vol] 32.3 % 30.5 - 36.0 % [facility] MCV (RBC) [Entitic vol] 99.8 fL High 77.0 - 99.0 fL [facility] Monocytes (Bld) [#/Vol] 0.3 10*3/uL 0.0 - 0.9 10*3/uL [facility] Monocytes/100 WBC (Bld) 6.4 % 5.0 - 13.0 % [facility] Neutrophils (Bld) [#/Vol] 2.9 10*3/uL 1.8 - 7.5 10*3/uL [facility] Neutrophils/100 WBC (Bld) 57.7 % 38.0 - 82.0 % [facility] Nucleated RBC/100 WBC (Bld) [Ratio] 0 % [facility] Platelet mean volume (Bld) [Entitic vol] 10.6 fL 9.0 - 12.7 fL [facility] Platelets (Bld) [#/Vol] 220 10*3/uL 140 - 440 10*3/uL [facility] RBC (Bld) [#/Vol] 4.66 10*6/uL 4.40 - 5.9 0 10*6/uL [facility] WBC (Bld) [#/Vol] 5 10*3/uL 3.6 - 10.7 10*3/uL [facility] CBC WITH AUTO DIFFERENTIALon 06-18-2024 Basophils (Bld) [#/Vol] 0.0 10*3/uL Normal 0.0-0.2 [facility] Comment on above: Performed By: #### L [id number] ####Event Marketing Intern: LESLEE HERNANDEZ ([phone])[facility] ([facility])[address] [place] [address] Basophils/100 WBC (Bld) 0.2 % Normal 0.0-2.0 [facility] Comment on above: Performed By: #### L [id number] ####Event Marketing Intern: LESLEE MCNEILLNinoskaTYRONE ([phone])[facility]OS[facility]ITALA BARBNEW MEXICO BEHAVIOR[facility] HE[facility] INSTITUTE AT L[facility] VEGASN (SBHLAB)[address] Eosinophils (Bld) [#/Vol] 0.0 10*3/uL Normal 0.0-0.5 [facility] Comment on above: Performed By: #### L [id number] ####Event Marketing Intern: LESLEE TURKTYRONE ([phone])[facility]OS[facility]ITALA BARBNEW MEXICO BEHAVIOR[facility] HEALTH INSTITUTE AT L[facility] VEGASN (SBHLAB)[address] Eosinophils/100 WBC (Bld) 0.6 % Normal 0.0-6.0 [facility] Comment on above: Performed By: #### L [id number] ####Event Marketing Intern: LESLEE MARY ([phone])[facility]ITALA [place] ([facility])[address] [place] [address] Erythrocyte distribution width (RBC) [Ratio] 13.9 % Normal 11.5-15.0 [facility] Comment on above: Performed By: #### L [id number] ####Event Marketing Intern: LESLEE TURKTYRONE ([phone])[facility]ITALA [facility] ([facility])[address] Hematocrit (Bld) [Volume fraction] 46.5 % Normal 40.0-52.0 [facility] Comment on above: Performed By: #### L [id number] ####Event Marketing Intern: LESLEE TURKTYRONE ([phone])[facility]ITALA BARBNEW MEXICO [facility] IN[facility] AT L[facility] VEGASN (SBAB)[address] Hemoglobin (Bld) [Mass/Vol] 15.0 g/dL Normal 13.0-18.0 [facility] Comment on above: Performed By: #### L [id number] ####Event Marketing Intern: LESLEE TURKTYRONE ([phone])[facility]ITALA BARBNEW MEXICO [facility] INSTITUTE AT L[facility] VEGASN (SBAB)[address] IMMATURE GRANS % 0.2 % Normal 0.0-2.0 [facility] Comment on above: Performed By: #### L [id number] ####Event Marketing Intern: LESLEE HERNANDEZ ([phone])[facility]ITALKeyon [facility] (SBHLAB)[address] IMMATURE GRANS ABSOLUTE 0.0 10*3/uL Normal <0.1 [facility] Comment on above: Performed By: #### L [id number] ####Event Marketing Intern: LESLEEFIDELIA HERNANDEZ ([phone])[facility] (SBAB)[address] Lymphocytes (Bld) [#/Vol] 1.8 10*3/uL Normal 1.0-4.3 [facility] Comment on above: Performed By: #### L [id number] ####Event Marketing Intern: LESLEE HERNANDEZ ([phone])[facility] ([facility])[address] [place] [address] Lymphocytes/100 WBC (Bld) 34.9 % Normal 15.0-45.0 [facility] Comment on above: Performed By: #### L [id number] ####Event Marketing Intern: LESLEE HERNANDEZ ([phone])[facility] ([facility])[address] [place] [address] MCH (RBC) [Entitic mass] 32.2 pg Normal 26.0-34.0 [facility] Comment on above: Performed By: #### L [id number] ####Event Marketing Intern: LESLEE HERNANDEZ ([phone])[facility] ([facility])[address] [place] [address] MCHC 32.3 % Normal 30.5-36.0 [facility] Comment on above: Performed By: #### L [id number] ####Event Marketing Intern: LESLEEFIDELIA HERNANDEZ ([phone])[facility] ([facility])[address] [place] [address] MCV (RBC) [Entitic vol] 99.8 fL High 77.0-99.0 [facility] Comment on above: Performed By: #### L [id number] ####Event Marketing Intern: LESLEE HERNANDEZ ([phone])[facility]A [place] (SBHLAB)[address] Monocytes (Bld) [#/Vol] 0.3 10*3/uL Normal 0.0-0.9 [facility] Comment on above: Performed By: #### L [id number] ####Event Marketing Intern: LESLEE HERNANDEZ ([id number])[facility] [place] (SBHLAB)[address] Monocytes/100 WBC (Bld) 6.4 % Normal 5.0-13.0 [facility] Comment on above: Performed By: #### L [id number] ####Event Marketing Intern: LESLEE HERNANDEZ ([phone])[facility] [place] (SBHLAB)[address] [place] [address] NEUTROPHILS ABSOLUTE 2.9 10*3/uL Normal 1.8-7.5 [facility] Comment on above: Performed By: #### L [id number] ####Event Marketing Intern: LESLEE HERNANDEZ ([phone])[facility]A [place] (SBHLAB)[address] [place] [address] Neutrophils/100 WBC (Bld) 57.7 % Normal 38.0-82.0 [facility] Comment on above: Performed By: #### L [id number] ####Event Marketing Intern: LESLEE MARY ([phone])[facility] [place] (SBHLAB)[address] NRBC 0.0 /100 WBCs Normal 0.0-2.0 [facility] Comment on above: Performed By: #### L [id number] ####Event Marketing Intern: LESLEE MARY ([phone])[facility]A [place] (SBHLAB)[address] Platelet mean volume (Bld) [Entitic vol] 10.6 fL Normal 9.0-12.7 [facility] Comment on above: Performed By: #### L [id number] ####Event Marketing Intern: LESLEE HERNANDEZ ([phone])[facility]PITALKey[facility] [place] (SBHLAB)[address] Platelets (Bld) [#/Vol] 220 10*3/uL Normal 140-440 [facility] Comment on above: Performed By: #### L [id number] ####Event Marketing Intern: LESLEE HERNANDEZ ([phone])[facility]OS[facility]ITALKey[facility] K[facility]TNEW MEX[facility]N (SBHLAB)[address] RBC (Bld) [#/Vol] 4.66 10*6/uL Normal 4.40-5.90 [facility] Comment on above: Performed By: #### L [id number] ####Event Marketing Intern: LESLEE HERNANDEZ ([phone])[facility] (SBHLAB)[address] [place] [address] WBC (Bld) [#/Vol] 5.0 10*3/uL Normal 3.6-10.7 [facility] Comment on above: Performed By: #### L [id number] ####Event Marketing Intern: LESLEE HERNANDEZ ([phone])[facility] ([facility])[address] [place] [address] ECG 12-LEADon 06-18-2024 ECG 12-LEAD IMPRESSION: Sinus tachycardia Left Atrial enlargement LEFT BUNDLE BRANCH BLOCK Electronically Signed On 06-18-2024 17:45:59 EST by Cleve Luke Normal [facility] HIGH SENSITIVITY TROPONIN, S ERIAL BASELINEon 06-18-2024 TROPONIN HIGH SENSITIVITY BASELINE 44 ng/L High <=35 [facility] Comment on above: Performed By: #### L [id number], [id number], [id number], LAB15 ####Event Marketing Intern: LESLEE HERNANDEZ ([phone])[facility]OSPITALKey[facility] [place] (SBAB)[address] Laboratory - Chemistry and C hemistry - challengeon 06-18-2024 Magnesium [Mass/Vol] 2.1 mg/dL 1.6 - 2 .6 mg/dL [facility] MAGNESIUMon 06-18-2024 Magnesium [Mass/Vol] 2.1 mg/dL Normal 1.6-2.6 [facility] Comment on above: Result Comment: ALEJANDRO Aleman COMMENTS:Higher values can be expected in females during menses. Performed By: #### L AB106, [id number], [id number], LAB15 ####Event Marketing Intern: LESLEE HERNANDEZ ([phone])[facility]risB[facility] (SBHLAB)[address] Magnesium [Mass/Vol]on 06-18 Interpretation and review of laboratory results Normal [employer] Higher values can be expected in females during menses. [employer] NT PRO BNPon 06-18-2024 Natriuretic peptide B (Bld) [Mass/Vol] 40553 pg/mL High <125 [facility] Comment on above: Performed By: #### L [id number], [id number], [id number], LAB15 ####Event Marketing Intern: LESLEE HERNANDEZ ([phone])[facility]MetrisBANNER [facility] (SBHLAB)[address] [place] [address] Natriuretic peptide B [Mass/ Vol]on 06-18-2024 Interpretation and review of laboratory results Abnormal [employer] Natriuretic peptide B (Bld) [Mass/Vol] 89311 pg/mL High NINF - 125 pg/mL [employer] No Panel InformationOrdered By: Jose Carlos Luke on 06-18-2024 P [place] 0 degrees [employer] Work Phone: NM Interval 109 ms [employer] Work Phone: QRS [place] 126 degrees Be Spotted Phone: QRSD Interval 149 ms one[employer] Work Phone: QT Interval 419 ms [employer] Work Phone: QTC Interval 581 ms [employer] Work Phone: T Wave [place] -50 degrees [employer] Work Phone: [employer] Work Phone: No Panel Informationon 06-18 Sinus tachycardia Left Atrial enlargement LEFT BUNDLE BRANCH BLOCK Electronically Signed On 06-18-2024 17:45:59 EST by Cleve Luke CV Jose Carlos Mckeon MD - 06/18/2024 IMPRESSION: Sinus tachycardia Left Atrial enlargement LEFT BUNDLE BRANCH BLOCK Electronically Signed On 06-18-2024 17:45:59 EST by Cleve Luke [facility] Interpretation and review of laboratory results Abnormal [facility] Troponin HS, Serial Baseline 44 ng/L High NINF - 35 ng/L [facility] Nursing Noteon 06-18-2024 Nursing Note Patient refusing troponin blood draw at this time. Normal [facility] Nursing Note Normal [facility] Progress Noteon 06-18-2024 Progress Note Normal [facility] Progress Note Normal [facility] Progress Note Normal [facility] Progress Note Normal [facility] Vital signsOrdered By: Danilo Luke on 06-18-2024 Heart rate 115 /min bpm [facility] Work Phone: Anesthesia Noteon 06-17-2024 Anesthesia Note Normal [facility] [...] was anesthetized with lidocaine injected subcutaneously. 6 Nepalese sheath was advanced into the right radial artery using modified Seldinger technique. Standard cocktail of nitroglycerin and verapamil was administered through the sheath. Patient was anticoagulated with IV heparin. Left and right coronary angiograms were performed with 5 Nepalese JL 3.5 and JR4 catheters respectively. JR4 [...] and optimal medical management. CV CPACS HEMO [facility] No Panel Informationon 06-17 Performed by: [facility] Center[facility] Cano, [address] [place] [id number] CLIA ID: [id number] Reportable Results: OxyHemoglobin 0 - 100% Expected Ranges: OxyHemoglobin Arterial Sample 95 - 100%* Adequate Oxygenation >=92% Venous sample 60 - 85%* Note: *OxyHemoglobin Reference Ranges based upon literature review Adequate oxygenation based upon [facility] Clinical Decision [facility] Performed by: Pam Cano, [address] [place] [id number] CLIA ID: [id number] Reportable Results: OxyHemoglobin 0 - 100% Expected Ranges: OxyHemoglobin Arterial Sample 95 - 100%* Adequate Oxygenation >=92% Venous sample 60 - 85%* Note: *OxyHemoglobin Reference Ranges based upon literature review Adequate oxygenation based upon [facility] Clinical Decision [facility] Performed by: [facility] Centerkeyno Cano, [address] [place] [address] CLIA ID: [id number] Reportable Results: OxyHemoglobin 0 - 100% Expected Ranges: OxyHemoglobin Arterial Sample 95 - 100%* Adequate Oxygenation >=92% Venous sample 60 - 85%* Note: *OxyHemoglobin Reference Ranges based upon literature review Adequate oxygenation based upon [facility] Clinical Decision [facility] Nursing Noteon 06-17-2024 Nursing Note Patient had a twenty second run of vtach caught on tele monitor. Dr. Mcguire and Gaby Marcano 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 for cardiology notified. No new orders at this time. Normal [facility] Nursing Note Normal [facility] Progress Noteon 06-17-2024 Progress Note Normal [facility] Progress Note Normal [facility] Progress Note Normal [facility] Progress Note Normal [facility] Vital signson 06-17-2024 Oxygen saturation in Blood 93 % [facility] Oxygen saturation in Blood 53 % [facility] Oxygen saturation in Blood 49 % [facility] 30on 06-16-2024 30 Normal [facility] BASIC METABOLIC PANELon 05-30 Anion gap [Moles/Vol] 9 mmol/L Normal 3-13 [facility] Comment on above: Performed By: #### L AB15, [id number] ####Event Marketing Intern: LESLEE HERNANDEZ ([phone])[facility] ([facility])[address] Calcium [Mass/Vol] 8.3 mg/dL Low 8.4-10.2 [facility] Comment on above: Performed By: #### L AB15, [id number] ####Event Marketing Intern: LESLEE HERNANDEZ ([id number])[facility] (SBHLAB)[address] [place] [address] [place] Chloride [Moles/Vol] 104 mmol/L Normal 98-107 [facility] Comment on above: Performed By: #### L AB15, [id number] ####Event Marketing Intern: LESLEE HERNANDEZ ([phone])[facility] (SBHLAB)[address] [place] [address] [place] CO2 [Moles/Vol] 27 mmol/L Normal 22-29 [facility] Comment on above: Performed By: #### L AB15, [id number] ####Event Marketing Intern: LESLEE HERNANDEZ ([phone])[facility]ITALKey[facility] [place] (SBHLAB)[address] [place] [address] [place] Creatinine [Mass/Vol] 1.91 mg/dL High 0.72-1.25 [facility] Comment on above: Performed By: #### L AB15, [id number] ####Event Marketing Intern: LESLEE HERNANDEZ ([id number])[facility] HOSPITALKeyon BARBNEW MEXICO BEHAVIORAL HEALTH INSTITUTE AT LAS VEGASMarguerite (SBHLAB)[address] [place] [address] [place] GLOMERULAR FILTRATION RATE ML/MIN/1.73 SQ M.PREDICTED 43.2 mL/min/1.73m*2 Low >60.0 [facility] Comment on above: Result Comment: Calc ulation based on the Chronic Kidney Disease Epidemiology Collaboration (CKD-EPI) equation refit without adjustment for race Performed By: #### L AB15, [id number] ####Event Marketing Intern: LESLEE HERNANDEZ ([phone])[facility]OSPITALKeyon BARBNEW MEXICO BEHAVIORAL HEALTH INSTITUTE AT LAS VEGASN (SBHLAB)[address] Glucose [Mass/Vol] 107 mg/dL High 74-100 [facility] Comment on above: Performed By: #### L AB15, [id number] ####Event Marketing Intern: LESLEE HERNANDEZ ([id number])[facility] (SBHLAB)[address] Potassium [Moles/Vol] 3.9 mmol/L Normal 3.5-5.1 [facility] Comment on above: Result Comment: [facility] potassium values may be up to 0.5 mmol/L lower than serum values. Performed By: #### L AB15, [id number] ####Event Marketing Intern: LESLEE HERNANDEZ ([phone])[facility]OS[facility]ITALKeyon BARBNEW MEXICO BEHAVIOR[facility] HEALTH INSTITUTE AT LAS VEGASN (SBHLAB)[address] [place] [address] [place] Sodium [Moles/Vol] 140 mmol/L Normal 136-145 [facility] Comment on above: Performed By: #### L AB15, [id number] ####Event Marketing Intern: LESLEE HERNANDEZ ([id number])[facility]BBANNER [facility] (SBHLAB)[address] Urea nitrogen [Mass/Vol] 31 mg/dL High 8-21 [facility] Comment on above: Performed By: #### L AB15, [id number] ####Event Marketing Intern: LESLEE HERNANDEZ ([phone])[facility] [place] (SBHLAB)[address] Basic metabolic 1998 panelon 06-16-2024 Anion gap [Moles/Vol] 9 mmol/L 3 - 13 mmol/L [facility] Calcium [Mass/Vol] 8.3 mg/dL Low 8.4 - 10. 2 mg/dL [facility] Chloride [Moles/Vol] 104 mmol/L 98 - 10 7 mmol/L [facility] CO2 [Moles/Vol] 27 mmol/L 22 - 29 mmol/L [facility] Creatinine [Mass/Vol] 1.91 mg/dL High 0.72 - 1.25 mg/dL [facility] GFR/1.73 sq M.predicted (S/P/Bld) [Vol rate/Area] 43.2 mL/min Low - PINF [facility] Comment on above: Calculation based on the Chronic Kidney Disease Epidemiology Collaboration (CKD-EPI) equation refit without adjustment for race Glucose [Mass/Vol] 107 mg/dL High 74 - 100 mg/dL [facility] Interpretation and review of laboratory results Abnormal [facility] Potassium [Moles/Vol] 3.9 mmol/L 3.5 - 5.1 mmol/L [facility] Comment on above: Plasma potassium heidi ues may be up to 0.5 mmol/L lower than serum values. Sodium [Moles/Vol] 140 mmol/L 136 - 145 mmol/L [facility] Urea nitrogen [Mass/Vol] 31 mg/dL High 8 - 21 mg/dL [facility] CBC W Auto Differential pane l (Bld)Ordered By: Jessica Santoro on 06-16-2024 Basophils (Bld) [#/Vol] 0 10*3/uL 0.0 - 0.2 10*3/uL [facility] Basophils/100 WBC (Bld) 0.4 % 0.0 - 2.0 % [facility] Eosinophils (Bld) [#/Vol] 0.1 10*3/uL 0.0 - 0.5 10*3/uL [facility] Eosinophils/100 WBC (Bld) 0.9 % 0.0 - 6.0 % [facility] Erythrocyte distribution width (RBC) [Ratio] 13.6 % 11.5 - 15.0 % [facility] Hematocrit (Bld) [Volume fraction] 47.5 % 40.0 - 52.0 % [facility] Hemoglobin (Bld) [Mass/Vol] 15.6 g/dL 13.0 - 18.0 g/dL [facility] Immature granulocytes (Bld) [#/Vol] 0 10*3/uL NINF - 0.1 10*3/uL [facility] Immature granulocytes/100 WBC (Bld) 0.2 % 0.0 - 2.0 % [facility] Interpretation and review of laboratory results Abnormal [facility] Lymphocytes (Bld) [#/Vol] 2 10*3/uL 1.0 - 4.3 10*3/uL [facility] Lymphocytes/100 WBC (Bld) 35.3 % 15.0 - 45.0 % [facility] MCH (RBC) [Entitic mass] 32.6 pg 26.0 - 34.0 pg [facility] MCHC (RBC) [Mass/Vol] 32.8 % 30.5 - 36.0 % [facility] MCV (RBC) [Entitic vol] 99.2 fL High 77.0 - 99.0 fL [facility] Monocytes (Bld) [#/Vol] 0.5 10*3/uL 0.0 - 0.9 10*3/uL [facility] Monocytes/100 WBC (Bld) 8.1 % 5.0 - 13.0 % [facility] Neutrophils (Bld) [#/Vol] 3.1 10*3/uL 1.8 - 7.5 10*3/uL [facility] Neutrophils/100 WBC (Bld) 55.1 % 38.0 - 82.0 % [facility] Nucleated RBC/100 WBC (Bld) [Ratio] 0 % [facility] Platelet mean volume (Bld) [Entitic vol] 10.3 fL 9.0 - 12.7 fL [facility] Platelets (Bld) [#/Vol] 195 10*3/uL 140 - 440 10*3/uL [facility] RBC (Bld) [#/Vol] 4.79 10*6/uL 4.40 - 5.9 0 10*6/uL [facility] WBC (Bld) [#/Vol] 5.5 10*3/uL 3.6 - 10.7 10*3/uL [facility] CBC WITH AUTO DIFFERENTIALon 06-16-2024 Basophils (Bld) [#/Vol] 0.0 10*3/uL Normal 0.0-0.2 [facility] Comment on above: Performed By: #### L [id number] ####Event Marketing Intern: LESLEE HERNANDEZ ([phone])[facility] [place] [facility] Basophils/100 WBC (Bld) 0.4 % Normal 0.0-2.0 [facility] Comment on above: Performed By: #### L [id number] ####Event Marketing Intern: LESLEE HERNANDEZ ([phone])[facility] [place] [facility] Eosinophils (Bld) [#/Vol] 0.1 10*3/uL Normal 0.0-0.5 [facility] Comment on above: Performed By: #### L [id number] ####Event Marketing Intern: LESLEE HERNANDEZ ([phone])[facility] [place] ([facility])[address] [place] [address] Eosinophils/100 WBC (Bld) 0.9 % Normal 0.0-6.0 [facility] Comment on above: Performed By: #### L [id number] ####Event Marketing Intern: LESLEE HERNANDEZ ([phone])[facility] [place] ([facility])[address] Erythrocyte distribution width (RBC) [Ratio] 13.6 % Normal 11.5-15.0 [facility] Comment on above: Performed By: #### L [id number] ####Event Marketing Intern: LESLEE HERNANDEZ ([id number])[facility] [place] ([facility])[address] Hematocrit (Bld) [Volume fraction] 47.5 % Normal 40.0-52.0 [facility] Comment on above: Performed By: #### L [id number] ####Event Marketing Intern: LESLEE HERNANDEZ ([id number])[facility] (SBAB)[address] Hemoglobin (Bld) [Mass/Vol] 15.6 g/dL Normal 13.0-18.0 [facility] Comment on above: Performed By: #### L [id number] ####Event Marketing Intern: LESLEE HERNANDEZ ([phone])[facility] IMMATURE GRANS % 0.2 % Normal 0.0-2.0 [facility] Comment on above: Performed By: #### L [id number] ####Event Marketing Intern: LESLEE HERNANDEZ ([phone])[facility] ([facility])[address] [place] [address] IMMATURE GRANS ABSOLUTE 0.0 10*3/uL Normal <0.1 [facility] Comment on above: Performed By: #### L [id number] ####Event Marketing Intern: LESLEE HERNANDEZ ([phone])[facility])[address] [place] [address] Lymphocytes (Bld) [#/Vol] 2.0 10*3/uL Normal 1.0-4.3 [facility] Comment on above: Performed By: #### L [id number] ####Event Marketing Intern: LESLEE HERNANDEZ ([phone])[facility])[address] [place] [address] Lymphocytes/100 WBC (Bld) 35.3 % Normal 15.0-45.0 [facility] Comment on above: Performed By: #### L [id number] ####Event Marketing Intern: LESLEE HERNANDEZ ([id number])[facility])[address] [place] [address] MCH (RBC) [Entitic mass] 32.6 pg Normal 26.0-34.0 [facility] Comment on above: Performed By: #### L [id number] ####Event Marketing Intern: LESLEE HERNANDEZ ([phone])[facility] [place] [facility])[address] [place] [address] MCHC 32.8 % Normal 30.5-36.0 [facility] Comment on above: Performed By: #### L [id number] ####Event Marketing Intern: LESLEE HERNANDEZ ([id number])[facility] [place] ([facility])[address] MCV (RBC) [Entitic vol] 99.2 fL High 77.0-99.0 [facility] Comment on above: Performed By: #### L [id number] ####Event Marketing Intern: LESLEE TURKTYRONE ([phone])[facility] [place] ([facility])[address] [place] [address] Monocytes (Bld) [#/Vol] 0.5 10*3/uL Normal 0.0-0.9 [facility] Comment on above: Performed By: #### L [id number] ####Event Marketing Intern: LESLEE HERNANDEZ ([id number])[facility] [place] ([facility])[address] Monocytes/100 WBC (Bld) 8.1 % Normal 5.0-13.0 [facility] Comment on above: Performed By: #### L [id number] ####Event Marketing Intern: LESLEE HERNANDEZ ([phone])[facility] [place] ([facility])[address] [place] [address] NEUTROPHILS ABSOLUTE 3.1 10*3/uL Normal 1.8-7.5 [facility] Comment on above: Performed By: #### L [id number] ####Event Marketing Intern: LESLEE HERNANDEZ ([id number])[facility] [place] ([facility])[address] [place] [address] Neutrophils/100 WBC (Bld) 55.1 % Normal 38.0-82.0 [facility] Comment on above: Performed By: #### L [id number] ####Event Marketing Intern: LESLEE HERNANDEZ ([phone])[facility] [place] ([facility])[address] NRBC 0.0 /100 WBCs Normal 0.0-2.0 [facility] Comment on above: Performed By: #### L [id number] ####Event Marketing Intern: LESLEE HERNANDEZ ([phone])[facility] (SBHLAB)[address] Platelet mean volume (Bld) [Entitic vol] 10.3 fL Normal 9.0-12.7 [facility] Comment on above: Performed By: #### L [id number] ####Event Marketing Intern: LESLEE TURKTYRONE ([phone])[facility] [place] (SBHLAB)[address] [place] [address] Platelets (Bld) [#/Vol] 195 10*3/uL Normal 140-440 [facility] Comment on above: Performed By: #### L [id number] ####Event Marketing Intern: LESLEE HERNANDEZ ([id number])[facility] [place] ([facility])[address] RBC (Bld) [#/Vol] 4.79 10*6/uL Normal 4.40-5.90 [facility] Comment on above: Performed By: #### L [id number] ####Event Marketing Intern: LESLEE HERNANDEZ ([phone])[facility] ([facility])[address] WBC (Bld) [#/Vol] 5.5 10*3/uL Normal 3.6-10.7 [facility] Comment on above: Performed By: #### L [id number] ####Event Marketing Intern: LESLEE HERNANDEZ ([id number])[facility] ([facility])[address] Laboratory - Chemistry and C hemistry - challengeon 06-16-2024 Magnesium [Mass/Vol] 1.7 mg/dL 1.6 - 2 .6 mg/dL [facility] MAGNESIUMon 06-16-2024 Magnesium [Mass/Vol] 1.7 mg/dL Normal 1.6-2.6 [facility] Comment on above: Result Comment: ALEJANDRO R COMMENTS:Higher values can be expected in females during menses. Performed By: #### L AB15, [id number] ####Event Marketing Intern: LESLEE HERNANDEZ ([id number])[facility] ([facility])[address] [place] [address] Magnesium [Mass/Vol]on 06-16 Interpretation and review of laboratory results Normal [facility] Higher values can be expected in females during menses. [facility] No Panel Informationon 06-16 [facility] Nursing Noteon 06-16-2024 Nursing Note Normal [facility] Progress Noteon 06-16-2024 Progress Note Normal [facility] Progress Note Normal [facility] Progress Note Normal [facility] 30on 06-15-2024 30 Normal [facility] [id number] 06-15-2024 [id number] Normal [facility] CHLORIDE, URINE, RANDOMon CHLORIDE, UR RANDOM 128 mmol/L Normal [facility] Comment on above: Performed By: #### L [id number], [id number], [id number], [id number] ####Event Marketing Intern: LESLEE HERNANDEZ ([id number])[facility] ([facility])[address] [place] [address] CHLORIDE, URINE, FRACTIONAL EXCRETION 16.0 Normal [facility] Comment on above: Performed By: #### L AB374, XSE264, WFW108, [id number] ####Event Marketing Intern: LESLEE HERNANDEZ ([id number])[facility] ([facility])[address] [place] [address] CHLORIDE, URINE, TUBULAR REABSORPTION 0.8 Normal [facility] Comment on above: Performed By: #### L AB374, [id number], SNS158, PEI219 ####Event Marketing Intern: LESLEE HERNANDEZ ([id number])[facility] [place] ([facility])[address] CREATININE, URINE 18.7 mg/dL Low 63.0-166.0 [facility] Comment on above: Performed By: #### L AB374, JAS111, YIY666, OGS258 ####Event Marketing Intern: LESLEE HERNANDEZ ([phone])[facility] [place] ([facility])[address] COMPLETE URINALYSISon 2023 BILIRUBIN, TOTAL PRESENCE IN URINE Negative Normal Negative [facility] Comment on above: Performed By: #### L [id number] ####Event Marketing Intern: LESLEE HERNANDEZ ([phone])[facility] [place] ([facility])[address] Clarity (U) Clear Normal Clear [facility] Comment on above: Performed By: #### L [id number] ####Event Marketing Intern: LESLEE HERNANDEZ ([phone])[facility] [place] ([facility])[address] Color (U) Colorless Normal Lt. Yellow [facility] Comment on above: Performed By: #### L [id number] ####Event Marketing Intern: LESLEE HERNANDEZ ([phone])[facility] [place] ([facility])[address] [place] [address] [place] GLUCOSE (MG/DL) IN URINE Normal Normal Normal (<70) [facility] Comment on above: Performed By: #### L [id number] ####Event Marketing Intern: LESLEE HERNANDEZ ([id number])[facility] [place] ([facility])[address] [place] [address] [place] HEMOGLOBIN PRESENCE IN URINE Negative Normal Negative [facility] Comment on above: Performed By: #### L AB347 ####Event Marketing Intern: LESLEE HERNANDEZ ([id number])[facility] [place] [facility])[address] [place] [address] [place] Ketones Ql (U) Negative Normal Negative [facility] Comment on above: Performed By: #### L AB347 ####Event Marketing Intern: LESLEE HERNANDEZ ([id number])[facility])[address] LEUKOCYTE ESTERASE PRESENCE IN URINE BY TEST STRIP Negative Normal Negative [facility] Comment on above: Performed By: #### L [id number] ####Event Marketing Intern: LESLEE HERNANDEZ ([phone])[facility] ([facility])[address] NITRITE PRESENCE IN URINE Negative Normal Negative [facility] Comment on above: Performed By: #### L AB347 ####Event Marketing Intern: LESLEE HERNANDEZ ([id number])[facility] ([facility])[address] [place] [address] pH (U) 5.5 [pH] Normal 5.0-8.0 [facility] Comment on above: Performed By: #### L AB347 ####Event Marketing Intern: LESLEE HERNANDEZ ([id number])[facility] ([facility])[address] Protein (U) [Mass/Vol] Negative Normal Negative [facility] Comment on above: Performed By: #### L [id number] ####Event Marketing Intern: LESLEE HERNANDEZ ([id number])[facility] ([facility])[address] [place] [address] Specific gravity (U) [Rel density] 1.007 Normal 1.005-1.030 [facility] Comment on above: Performed By: #### L [id number] ####Event Marketing Intern: LESLEE HERNANDEZ ([id number])[facility] ([facility])[address] UROBILINOGEN (MG/DL) IN URINE Normal Normal Normal (0-1) [facility] Comment on above: Performed By: #### L AB347 ####Event Marketing Intern: LESLEE TORRESCER ([id number])[facility] [place] ([facility])[address] COMPREHENSIVE METABOLIC PANE Ming 06-15-2024 Albumin [Mass/Vol] 3.0 g/dL Low 3.5-5.0 [facility] Comment on above: Performed By: #### L AB17, BHP457, [id number] ####Event Marketing Intern: LESLEE TURKTYRONE ([phone])[facility] [place] ([facility])[address] ALP [Catalytic activity/Vol] 110 U/L Normal 40-150 [facility] Comment on above: Performed By: #### L AB17, CIM366, MSD031 ####Event Marketing Intern: LESLEE MARY ([id number])[facility] [place] ([facility])[address] ALT [Catalytic activity/Vol] 96 U/L High <40 [facility] Comment on above: Performed By: #### L AB17, FBC725, HNB598 ####Event Marketing Intern: LESLEE MARY ([id number])[facility] (SB[facility])[address] Anion gap [Moles/Vol] 15 mmol/L High 3-13 [facility] Comment on above: Performed By: #### L AB17, ZZT577, GOE166 ####Event Marketing Intern: LESLEE TURKTYRONE ([phone])[facility] [place] ([facility])[address] AST [Catalytic activity/Vol] 31 U/L Normal <34 [facility] Comment on above: Performed By: #### L AB17, UEX769, CTV167 ####Event Marketing Intern: LESLEE MCNEILLRAMON ([id number])[facility] (SBHLAB)[address] Bilirubin [Mass/Vol] 1.6 mg/dL High <1.2 [facility] Comment on above: Performed By: #### L AB17, VQA216, GQH906 ####Event Marketing Intern: LESLEE HERNANDEZ ([id number])[facility] [place] ([facility])[address] Calcium [Mass/Vol] 8.9 mg/dL Normal 8.4-10.2 [facility] Comment on above: Performed By: #### L AB17, DYH482, [id number] ####Event Marketing Intern: LESLEE TORRESCER ([phone])[facility] [place] ([facility])[address] Chloride [Moles/Vol] 103 mmol/L Normal 98-107 [facility] Comment on above: Performed By: #### L AB17, EXH967, YVB978 ####Event Marketing Intern: LESLEE HERNANDEZ ([phone])[facility] [place] ([facility])[address] CO2 [Moles/Vol] 26 mmol/L Normal 22-29 [facility] Comment on above: Performed By: #### L AB17, AUH877, PDO971 ####Event Marketing Intern: LESLEE HERNANDEZ ([id number])[facility] [place] ([facility])[address] Creatinine [Mass/Vol] 2.41 mg/dL High 0.72-1.25 [facility] Comment on above: Performed By: #### L AB17, QAD657, PRM769 ####Event Marketing Intern: LESLEE TURKTYRONE ([phone])[facility] [place] ([facility])[address] [place] [address] [place] GLOMERULAR FILTRATION RATE ML/MIN/1.73 SQ M.PREDICTED 32.7 mL/min/1.73m*2 Low >60.0 [facility] Comment on above: Result Comment: Calc ulation based on the Chronic Kidney Disease Epidemiology Collaboration (CKD-EPI) equation refit without adjustment for race Performed By: #### L AB17, VXH031, QED880 ####Event Marketing Intern: LESLEE HERNANDEZ ([phone])[facility] [place] ([facility])[address] Glucose [Mass/Vol] 103 mg/dL High 74-100 [facility] Comment on above: Performed By: #### L AB17, TFE044, RVY650 ####Event Marketing Intern: LESLEE HERNANDEZ ([phone])[facility] [place] ([facility])[address] Potassium [Moles/Vol] 4.1 mmol/L Normal 3.5-5.1 [facility] Comment on above: Result Comment: [facility] potassium values may be up to 0.5 mmol/L lower than serum values. Performed By: #### L AB17, PRF938, JNH657 ####Event Marketing Intern: LESLEE HERNANDEZ ([id number])[facility] (SB[facility])[address] Protein [Mass/Vol] 5.7 g/dL Low 6.4-8.3 [facility] Comment on above: Performed By: #### L AB17, HOF203, JLP159 ####Event Marketing Intern: LESLEE HERNANDEZ ([phone])[facility] [place] ([facility])[address] Sodium [Moles/Vol] 144 mmol/L Normal 136-145 [facility] Comment on above: Performed By: #### L AB17, QHP520, IJD913 ####Event Marketing Intern: LESLEE HERNANDEZ ([phone])[facility] (SBHL[facility])[address] Urea nitrogen [Mass/Vol] 37 mg/dL High 8-21 [facility] Comment on above: Performed By: #### L AB17, QIQ464, XON645 ####Event Marketing Intern: LESLEE HERNANDEZ ([id number])[facility] ([facility])[address] Comprehensive metabolic 1998 panelOrdered By: Alexandra Sin on 06-15-2024 Albumin [Mass/Vol] 3 g/dL Low 3.5 - 5.0 g/dL [facility] ALP [Catalytic activity/Vol] 110 U/L 40 - 150 U/L [facility] ALT [Catalytic activity/Vol] 96 U/L High NINF - 40 U/L [facility] Anion gap [Moles/Vol] 15 mmol/L High 3 - 13 mmol/L [facility] AST [Catalytic activity/Vol] 31 U/L NINF - 34 U/L [facility] Bilirubin [Mass/Vol] 1.6 mg/dL High NINF - 1.2 mg/dL [facility] Calcium [Mass/Vol] 8.9 mg/dL 8.4 - 10. 2 mg/dL [facility] Chloride [Moles/Vol] 103 mmol/L 98 - 10 7 mmol/L [facility] CO2 [Moles/Vol] 26 mmol/L 22 - 29 mmol/L [facility] Creatinine [Mass/Vol] 2.41 mg/dL High 0.72 - 1.25 mg/dL [facility] GFR/1.73 sq M.predicted (S/P/Bld) [Vol rate/Area] 32.7 mL/min Low - PINF [facility] Comment on above: Calculation based on the Chronic Kidney Disease Epidemiology Collaboration (CKD-EPI) equation refit without adjustment for race Glucose [Mass/Vol] 103 mg/dL High 74 - 100 mg/dL [facility] Interpretation and review of laboratory results Abnormal [facility] Potassium [Moles/Vol] 4.1 mmol/L 3.5 - 5.1 mmol/L [facility] Comment on above: Plasma potassium heidi ues may be up to 0.5 mmol/L lower than serum values. Protein [Mass/Vol] 5.7 g/dL Low 6.4 - 8.3 g/dL [facility] Sodium [Moles/Vol] 144 mmol/L 136 - 145 mmol/L [facility] Urea nitrogen [Mass/Vol] 37 mg/dL High 8 - 21 mg/dL [facility] Consulton 06-15-2024 Consult Normal [facility] Laboratory - Chemistry and C hemistry - challengeon 06-15-2024 Sodium (24H U) [Mass/Vol] 118 mmol/L [facility] Chloride (U) [Moles/Vol] 128 mmol/L [facility] TSH Qn 1.52 m[IU]/L [facility] Magnesium [Mass/Vol] 1.8 mg/dL 1.6 - 2 .6 mg/dL [facility] Laboratory - Urinalysison Protein (U) [Mass/Vol] mg/dL NINF - 14 mg/dL [facility] MAGNESIUMon 06-15-2024 Magnesium [Mass/Vol] 1.8 mg/dL Normal 1.6-2.6 [facility] Comment on above: Result Comment: ALEJANDRO Aleman COMMENTS:Higher values can be expected in females during menses. Performed By: #### L AB17, JFR721, CQP972 ####Event Marketing Intern: LESLEE HERNANDEZ ([id number])[facility] ([facility])[address] [place] [address] MICROALBUMIN / CREATININE UR INE RATIOon 06-15-2024 MICROALBUMIN, URINE 5.0 ug/mL Normal [facility] Comment on above: Result Comment: ALEJANDRO Aleman COMMENTS:Microalbumin concentrations <30 are considered normal, 30-300 are considered microalbuminuria (or risk of diabetic nephropathy), and >300 are considered clinical albuminuria (clinical nephropathy).Diabetes Care,27, Supplement 1, S53-53, 2003 Performed By: #### L AB374, BPD303, AEF942, IXC487 ####Event Marketing Intern: LESLEE HERNANDEZ ([phone])[facility] ([facility])[address] [place] [address] MICROALBUMIN/CREATININ E RATIO 27 mg/g Normal <30 [facility] Comment on above: Performed By: #### L AB374, BJS001, MDX004, TJN956 ####Event Marketing Intern: LESLEE HERNANDEZ ([phone])[facility] ([facility])[address] [place] [address] Magnesium [Mass/Vol]on 06-15 Interpretation and review of laboratory results Normal [facility] Higher values can be expected in females during menses. [facility] Microalbumin/Creatinine rati o panel (U)on 06-15-2024 Albumin DL <= 20 mg/L (U) [Mass/Vol] 5 ug/mL [facility] Albumin/Creatinine DL <= 20 mg/L (U) [Mass ratio] 27 mg/g NINF - 30 mg/g [facility] Microalbumin concentrations <30 are considered normal, 30-300 are considered microalbuminuria (or risk of diabetic nephropathy), and >300 are considered clinical albuminuria (clinical nephropathy). Diabetes Care,27, Supplement 1, F16-64, 2003 [facility] No Panel Informationon 06-15 CREATININE, URINE 18.7 mg/dL Low 63.0 - 166 .0 mg/dL [facility] Interpretation and review of laboratory results Abnormal [facility] [facility] SODIUM, URINE, FRACTIONAL EXCRETION 10.6 [facility] SODIUM, URINE, TUBULAR REABSORPTION 0.9 [facility] CHLORIDE, URINE, FRACTIONAL EXCRETION 16 [facility] CHLORIDE, URINE, TUBULAR REABSORPTION 0.8 [facility] Nursing Noteon 06-15-2024 Nursing Note Patient is resting i n bed. Bed in low position and locked with call light in reach. Normal [facility] PROTEIN, URINE, RANDOMon TOTAL PROTEIN, UR <7 Normal <14 [facility] ealt System [facility] Comment on above: Performed By: #### L [id number], [id number], [id number], [id number] ####Event Marketing Intern: LESLEE HERNANDEZ ([id number])[address] Progress Noteon 06-15-2024 Progress Note Normal [facility] Progress Note Normal [facility] SODIUM, URINE, RANDOMon 05-30 Sodium (U) [Moles/Vol] 118 mmol/L Normal [facility] Comment on above: Performed By: #### L AB374, [id number], [id number], [id number] ####Event Marketing Intern: LESLEE HERNANDEZ ([phone])[facility] ([facility])[address] [place] [address] SODIUM, URINE, FRACTIONAL EXCRETION 10.6 Normal [facility] System [facility]S Comment on above: Performed By: #### L [id number], [id number], [id number], [id number] ####Event Marketing Intern: LESLEE HERNANDEZ ([phone])[facility] ([facility])[address] SODIUM, URINE, TUBULAR REABSORPTION 0.9 Normal [facility] Comment on above: Performed By: #### L [id number], [id number], [id number], [id number] ####Event Marketing Intern: LESLEE HERNANDEZ ([phone])[facility] ([facility])[address] THYROID STIMULATING HORMONEo n 06-15-2024 THYROID STIMULATING HORMONE 1.52 uIU/mL Normal 0.35-4.94 [facility] Comment on above: Performed By: #### L AB17, [id number], [id number] ####Event Marketing Intern: LESLEE HERNANDEZ ([id number])[facility]ITAL[facility] (SBHLAB)[address] TSH Qnon 06-15-2024 Interpretation and review of laboratory results Normal [facility] Heart TransthoracicOrdere d By: Ofelia Villalobos on 06-15-2024 Ao Root Index 1.39 cm/m2 [facility] Work Phone: Aortic Arch 3 cm [facility] Work Phone: [phone] Aortic Root 2.8 cm [facility] Work Phone: Aortic Sinus Valsalva 2.8 cm [facility] Work Phone: Aortic Sinus Valsalva Index 1.39 cm/m2 [facility] Work Phone: Ascending Aorta 3.2 cm [facility] Work Phone: Ascending Aorta Index 1.58 cm/m2 [facility] Work Phone: AV Area by Peak Velocity 2.9 cm2 [facility] Work Phone: [phone] AV Area by VTI 2.9 cm2 [facility] Work Phone: AV Mean Gradient 1 mmHg [facility] Work Phone: [phone] AV Mean Velocity 0.5 m/s [facility] Work Phone: AV Peak Gradient 2 mmHg [facility] Work Phone: AV Peak Velocity 0.7 m/s [facility] Work Phone: AV Velocity Ratio 1 [facility] Work Phone: AV VTI 8 cm [facility] Work Phone: EMILY/BSA Peak Velocity 1.4 cm2/m2 [facility] Work Phone: EMILY/BSA VTI 1.4 cm2/m2 [facility] Work Phone: E/E' Lateral 9 [facility] Work Phone: E/E' Ratio (Averaged) 13.5 [facility] Work Phone: E/E' Septal 18 [facility] Work Phone: EF BP 20 % Abnormal 55 - 100 % [facility] Work Phone: Est. RA Pressure 15 mmHg [facility] Work Phone: Fractional Shortening 2D 9 % 28 - 44 % [facility] Work Phone: Global Longitudinal Strain -5 % [facility] Work Phone: Interpretation and review of laboratory results Abnormal [facility] Work Phone: IVC Diameter 2.3 cm [facility] Work Phone: IVSd 1.1 cm Abnormal 0.6 - 1.0 cm [facility] Work Phone: LA Diameter 4.7 cm [facility] Work Phone: LA Size Index 2.33 cm/m2 [facility] Work Phone: LA Volume 2C 116 mL Abnormal 18 - 58 mL [facility] Work Phone: LA Volume 4C 105 mL Abnormal 18 - 58 mL [facility] Work Phone: LA Volume A/L 124 mL [facility] Work Phone: LA Volume BP 115 mL Abnormal 18 - 58 mL [facility] Work Phone: LA Volume Index 2C 57 mL/m2 Abnormal 16 - 34 mL/m2 [facility] Work Phone: LA Volume Index 4C 52 mL/m2 Abnormal 16 - 34 mL/m2 [facility] Work Phone: LA Volume Index A/L 61 mL/m2 16 - 34 mL/m2 [facility] Work Phone: LA Volume Index BP 57 ml/m2 Abnormal 16 - 34 ml/m2 [facility] Work Phone: LA/AO Root Ratio 1.68 [facility] Work Phone: LV E' Lateral Velocity 10 cm/s [facility] Health Work Phone: LV E' Septal Velocity 5 cm/s [facility] Work Phone: LV EDV A2C 228 mL [facility] Work Phone: LV EDV A4C 221 mL [facility] Work Phone: LV EDV BP 227 mL Abnormal 67 - 155 mL [facility] Work Phone: LV EDV Index A2C 113 mL/m2 [facility] Work Phone: LV EDV Index A4C 109 mL/m2 [facility] Work Phone: LV EDV Index BP 112 mL/m2 [facility] Work Phone: LV Ejection Fraction A2C 22 % [facility] Work Phone: LV Ejection Fraction A4C 19 % [facility] Work Phone: LV ESV A2C 177 mL [facility] Work Phone: LV ESV A4C 180 mL [facility] Work Phone: LV ESV BP 181 mL Abnormal 22 - 58 mL [facility] Work Phone: LV ESV Index A2C 88 mL/m2 [facility] Work Phone: LV ESV Index A4C 89 mL/m2 [facility] Work Phone: LV ESV Index BP 90 mL/m2 [facility] Work Phone: LV Mass 2D 288.7 g Abnormal 88 - 224 g [facility] Work Phone: LV Mass 2D Index 142.9 g/m2 Abnormal 49 - 115 g/m2 [facility] Work Phone: LV RWT Ratio 0.46 [facility] Work Phone: LVIDd 5.7 cm 4.2 - 5.9 cm [facility] Work Phone: LVIDd Index 2.82 cm/m2 [facility] Work Phone: LVIDs 5.2 cm [facility] Work Phone: LVIDs Index 2.57 cm/m2 [facility] Work Phone: LVOT Area 3.1 cm2 [facility] Work Phone: LVOT Cardiac Output 2.4 liter/minute [facility] Work Phone: LVOT Diameter 2 cm [facility] [employer] Work Phone: LVOT Mean Gradient 1 mmHg [facility] Work Phone: LVOT Peak Gradient 2 mmHg [facility] Work Phone: LVOT Peak Velocity 0.7 m/s [facility] Work Phone: LVOT Stroke Volume Index 12.1 mL/m2 [facility] Work Phone: LVOT SV 24.5 ml [facility] Work Phone: LVOT VTI 7.8 cm [facility] Work Phone: LVOT:AV VTI Index 0.98 [facility] [employer] ealt Work Phone: LVPWd 1.3 cm Abnormal 0.6 - 1.0 cm [facility] Work Phone: MR VTI 114.6 cm [facility] Work Phone: [phone] MV A Velocity 0.33 m/s [facility] Work [facility]: MV E Velocity 0.9 m/s [facility] [employer] Work Phone: [phone] MV E Wave Deceleration Time 86.1 ms [facility] Work Phone: [phone] MV E/A 2.73 [facility] Work Phone: [phone] MV Nyquist Velocity 36 cm/s [facility] Work Phone: [phone] MV Regurg Velocity PISA 4.3 m/s [facility] Work Phone: [phone] Pulmonary Artery EDP [address] [facility] Work Phone: RA Area 4C 98.5 mL [facility] Work Phone: [phone] RA Area 4C 91.2 mL [facility] Work Phone: [phone] RV Basal Dimension 5.4 cm [facility] Work Phone: [phone] RV Free Wall Peak S' 10 cm/s [facility] Work Phone: [phone] RV Longitudinal Dimension 9.1 cm [facility] Work Phone: RV Mid Dimension 3.1 cm [facility] Work Phone: [phone] RVSP 46 mmHg [facility] Work Phone: [phone] Sinotubular Junction 2.[address] [facility] Work Phone: [phone] TAPSE 2 cm 1.7 cm [facility] Work Phone: [phone] TR Max Velocity 2.78 m/s [facility] Work Phone: [phone] TR Peak Gradient 31 mmHg [facility] Work Phone: [phone] [facility] Work Phone: [phone] Heart Transthoracicon Left Ventricle: Left ventricle [...] 06-15-2024 Bilirubin Ql (U) Negative Negative mg/dL [employer] [facility] Clarity (U) Clear Clear Technical Machine Color (U) Colorless Lt. Yellow [facility] Glucose Ql (U) Normal Normal (<70) mg/dL [facility] Hemoglobin Ql (U) Negative Negative mg/dL [facility] Interpretation and review of laboratory results [facility] Ketones (U) [Mass/Vol] Negative Negat dai mg/dL [facility] Leukocyte esterase Test strip Ql (U) Negative Negative Nicky/uL [facility] Nitrite Ql (U) Negative Negative [facility] th pH (U) 5.5 [pH] 5.0 - 8.0 pH [facility] Protein (U) [Mass/Vol] Negative Negat dai mg/dL [facility] Specific gravity (U) [Rel density] 1.007 1.005 - 1.030 [facility] Urobilinogen (U) [Mass/Vol] Normal Normal (0-1) mg/dL [facility] [id number] 06-14-2024 [id number] Normal [facility] BASIC METABOLIC PANELon 05-30 Anion gap [Moles/Vol] 11 mmol/L Normal 3-13 [facility] Comment on above: Performed By: #### L AB18, [id number] ####Event Marketing Intern: LESLEE HERNANDEZ ([phone])[facility])[address] Calcium [Mass/Vol] 7.2 mg/dL Low 8.4-10.2 [facility] Comment on above: Performed By: #### L AB18, LAB15 ####Event Marketing Intern: LESLEE HERNANDEZ ([phone])[facility] (SBHLAB)[address] Chloride [Moles/Vol] 118 mmol/L High 98-107 [facility] Comment on above: Performed By: #### L AB18, LAB15 ####Event Marketing Intern: LESLEE HERNANDEZ ([phone])[facility] (SBHLAB)[address] [place] [address] [place] CO2 [Moles/Vol] 15 mmol/L Low 22-29 [facility] Comment on above: Performed By: #### L AB18, LAB15 ####Event Marketing Intern: LESLEE HERNANDEZ ([phone])[facility] (SBHLAB)[address] [place] [address] [place] Creatinine [Mass/Vol] 1.74 mg/dL High 0.72-1.25 [facility] Comment on above: Performed By: #### L AB18, LAB15 ####Event Marketing Intern: LESLEE HERNANDEZ ([phone])[facility] ([facility])[address] [place] [address] [place] GLOMERULAR FILTRATION RATE ML/MIN/1.73 SQ M.PREDICTED 48.4 mL/min/1.73m*2 Low >60.0 [facility] Comment on above: Result Comment: Calc ulation based on the Chronic Kidney Disease Epidemiology Collaboration (CKD-EPI) equation refit without adjustment for race Performed By: #### L AB18, LAB15 ####Event Marketing Intern: LESLEE HERNANDEZ ([id number])[facility] ([facility])[address] Glucose [Mass/Vol] 81 mg/dL Normal 74-100 [facility] Comment on above: Performed By: #### L AB18, LAB15 ####Event Marketing Intern: LESLEE HERNANDEZ ([id number])[facility] ([facility])[address] [place] [address] [place] Potassium [Moles/Vol] 3.6 mmol/L Normal 3.5-5.1 [facility] Comment on above: Result Comment: [facility] potassium values may be up to 0.5 mmol/L lower than serum values. Performed By: #### L AB18, LAB15 ####Event Marketing Intern: LESLEE HERNANDEZ ([id number])[facility])[address] [place] [address] [place] Sodium [Moles/Vol] 144 mmol/L Normal 136-145 [facility] Comment on above: Performed By: #### L AB18, LAB15 ####Event Marketing Intern: LESLEE HERNANDEZ ([id number])[facility] ([facility])[address] [place] [address] [place] Urea nitrogen [Mass/Vol] 32 mg/dL High 8-21 [facility] Comment on above: Performed By: #### L AB18, LAB15 ####Event Marketing Intern: LESLEE HERNANDEZ ([phone])[facility] ([facility])[address] [place] [address] Basic metabolic 1998 panelOr dered By: Krista Campbell on 06-14-2024 Anion gap [Moles/Vol] 11 mmol/L 3 - 13 mmol/L [facility] Calcium [Mass/Vol] 7.2 mg/dL Low 8.4 - 10. 2 mg/dL [facility] Chloride [Moles/Vol] 118 mmol/L High 98 - 10 7 mmol/L [facility] CO2 [Moles/Vol] 15 mmol/L Low 22 - 29 mmol/L [facility] Creatinine [Mass/Vol] 1.74 mg/dL High 0.72 - 1.25 mg/dL [facility] GFR/1.73 sq M.predicted (S/P/Bld) [Vol rate/Area] 48.4 mL/min Low - PINF [facility] Comment on above: Calculation based on the Chronic Kidney Disease Epidemiology Collaboration (CKD-EPI) equation refit without adjustment for race Glucose [Mass/Vol] 81 mg/dL 74 - 100 mg/dL [facility] Interpretation and review of laboratory results Abnormal [facility] Potassium [Moles/Vol] 3.6 mmol/L 3.5 - 5.1 mmol/L [facility] Comment on above: Plasma potassium heidi ues may be up to 0.5 mmol/L lower than serum values. Sodium [Moles/Vol] 144 mmol/L 136 - 145 mmol/L [facility] Urea nitrogen [Mass/Vol] 32 mg/dL High 8 - 21 mg/dL [facility] CT ABDOMEN PELVIS WO IV CONT RASTon 06-14-2024 CT ABDOMEN PELVIS WO IV CONTRAST Normal [facility] CT Abdomen and Pelvis WO con traston 06-14-2024 1. Small amount of nonspecific free fluid in the dependent pelvis. 2. Cardiomegaly. Report Dictated on Electronically Signed By: Juan Pereira MD Electronically Signed Date/Time: 06/14/2024 10:23 AM [facility]ERGENC[facility] [employer] [facility] Patient Name: CARLO MEDINA : 1980 Exam Date/Time: 06/14/2024 09:41 Procedure: CT ABDOMEN [...] umbilical hernia. Osseous structures: No osseous abnormalities. [facility] Juan Pereira MD - 06/14/2024 [facility] Name[facility] 1980 [id number] Exam Date/Time: 06/14/2024 09:41 Procedure: CT ABDOMEN [...] Electronically Signed Date/Time: 06/14/2024 10:23 AM EST [facility] Radiology Study observation (narrative) [facility] CT Abdomen and Pelvis WO con trastOrdered By: Juan Pereira on 06-14-2024 [facility] Work Phone: Consulton 06-14-2024 Consult Normal [facility] ECG 12-LEADon 06-14-2024 ECG 12-LEAD IMPRESSION: Sinus tachycardia Left atrial enlargement Left ventricular hypertrophy ST elevation secondary to IVCD Electronically Signed On 06-14-2024 02:04:38 EST by Ventura Mcconnell Normal [facility] LIPID PANELon 06-14-2024 Cholesterol [Mass/Vol] 130 mg/dL Normal <200 [facility] Comment on above: Performed By: #### L AB18, LAB15 ####Event Marketing Intern: LESLEE HERNANDEZ ([phone])[facility]ITAL[facility] [place] ([facility])[address] [place] [address] Cholesterol in HDL [Mass/Vol] 16 mg/dL Low >=60 [facility] Comment on above: Performed By: #### L AB18, LAB15 ####Event Marketing Intern: LESLEE HERNANDEZ ([phone])[facility]ITAL[facility] [place] ([facility])[address] Cholesterol.total/Chol esterol in HDL [Mass ratio] 8 {ratio} Normal [facility] Comment on above: Result Comment: Ref Range:< 3 Low Risk for CHD3-6 Mod Risk for CHD> 6 High Risk for CHD Performed By: #### L AB18, LAB15 ####Event Marketing Intern: LESLEE HERNANDEZ ([phone])[facility]ITAL[facility] [place] ([facility])[address] LOW DENSITY LIPOPROTEIN 100 mg/dL High 0-<100 [facility] Comment on above: Performed By: #### L AB18, LAB15 ####Event Marketing Intern: LESLEE HERNANDEZ ([id number])[facility]ITALA [facility]BNEW [facility]EX[facility] (SBHLAB)[address] NON-HDL CHOLESTEROL, CALCULATED 114 Normal <130 [facility] Comment on above: Performed By: #### L AB18, LAB15 ####Event Marketing Intern: LESLEE HERNANDEZ ([id number])[facility] [place] ([facility])[address] Triglyceride [Mass/Vol] 68 mg/dL Normal <150 [facility] Comment on above: Performed By: #### L AB18, LAB15 ####Event Marketing Intern: LESLEE HERNANDEZ ([id number])[facility]BNEW [facility] (SBHLAB)[address] VERY LOW DENSITY LIPOPROTEIN, CALCULATED 14 mg/dL Normal <=30 [facility] Comment on above: Performed By: #### L AB18, LAB15 ####Event Marketing Intern: LESLEE HERNANDEZ ([id number])[facility]BNEW [facility]N (SBHLAB)[address] Lipid 1996 panelon 12-16-202 4 Cholesterol [Mass/Vol] 130 mg/dL NINF - 200 mg/dL [facility] Cholesterol in HDL [Mass/Vol] 16 mg/dL Low 60 - PINF mg/dL [facility] Cholesterol in LDL [Mass/Vol] 100 mg/dL High 0 - <100 [facility] Cholesterol.total/Chol esterol in HDL [Mass ratio] 8 {ratio} [facility] Comment on above: Ref Range: < 3 Low Risk for CHD 3-6 Mod Risk for CHD > 6 High Risk for CHD Interpretation and review of laboratory results Abnormal [facility] NON-HDL CHOLESTEROL, CALCULATED 114 NINF - 130 [facility] Triglyceride [Mass/Vol] 68 mg/dL NINF - 150 mg/dL [facility] VERY LOW DENSITY LIPOPROTEIN, CALCULATED 14 mg/dL [facility] - 30 mg/dL [facility] No Panel Informationon 06-14 Acute occlusive deep [...] Patent, compressible. Peroneal Vein: Acute occlusive thrombus. [employer] Details A forrest scale, color Doppler imaging [...] 02:04:38 EST by Ventura Mcconnell CV Ventura Jhonston MD - 06/14/2024 IMPRESSION: Sinus tachycardia Left atrial enlargement Left ventricular hypertrophy ST elevation secondary to IVCD Electronically Signed On 06-14-2024 02:04:38 EST by Ventura Mcconnell [employer] No Panel InformationOrdered By: Ventura Mcconnell on 06-14-2024 P [place] 69 degrees [employer] Phone: NM Interval 148 ms [employer] Phone: QRS [place] 31 degrees [employer] Phone: QRSD Interval 147 ms [employer] Work Phone: QT Interval 402 ms [employer] Phone: QTC Interval 539 ms [employer] Phone: T Wave [place] 4 degrees [employer] Phone: [employer] Phone: Progress Noteon 06-14-2024 Progress Note Normal [employer] [facility] Progress Note Normal [employer] [facility] Vital signsOrdered By: Marj Mcconnell on 06-14-2024 Heart rate 108 /min bpm [employer] Phone: 30on 06-13-2024 30 Normal [employer] [facility] BASIC METABOLIC PANELon 05-30 Anion gap [Moles/Vol] 10 mmol/L Normal 3-13 [facility] Comment on above: Performed By: #### Pedro AB15, [id number], [id number] ####Event Marketing Intern: LESLEE HERNANDEZ ([id number])[facility]ITAL[facility] [place] (SBHLAB)[address] Calcium [Mass/Vol] 8.6 mg/dL Normal 8.4-10.2 [facility] Comment on above: Performed By: #### Pedro AB15, [id number], [id number] ####Event Marketing Intern: LESLEE HERNANDEZ ([id number])[facility] [place] ([facility])[address] Chloride [Moles/Vol] 114 mmol/L High 98-107 [facility] Comment on above: Performed By: #### Pedro AB15, [id number], [id number] ####Event Marketing Intern: LESLEE HERNANDEZ ([id number])[facility]ITALA [facility]BNEW MEXICO [facility] IN[facility] AT L[facility]GASN (SBHLAB)[address] CO2 [Moles/Vol] 18 mmol/L Low 22-29 [facility] Comment on above: Performed By: #### Pedro AB15, [id number], [id number] ####Event Marketing Intern: LESLEE HERNANDEZ ([id number])[facility] (SB[facility]AB)[address] Creatinine [Mass/Vol] 2.03 mg/dL High 0.72-1.25 [facility] Comment on above: Performed By: #### L AB15, [id number], [id number] ####Event Marketing Intern: LESLEE HERNANDEZ ([id number])[facility]ITALA BARBNEW MEXICO [facility] IN[facility] AT L[facility]N (SBHLAB)[address] GLOMERULAR FILTRATION RATE ML/MIN/1.73 SQ M.PREDICTED 40.2 mL/min/1.73m*2 Low >60.0 [facility] Comment on above: Result Comment: Calc ulation based on the Chronic Kidney Disease Epidemiology Collaboration (CKD-EPI) equation refit without adjustment for race Performed By: #### Pedro AB15, [id number], [id number] ####Event Marketing Intern: LESLEE HERNANDEZ ([id number])[facility]OS[facility]ITALKeyon [place] (HLAB)[address] Glucose [Mass/Vol] 104 mg/dL High 74-100 [facility] Comment on above: Performed By: #### Pedro ORTEZ, [id number], [id number] ####Event Marketing Intern: LESLEE HERNANDEZ ([id number])[facility] ([facility])[address] Potassium [Moles/Vol] 4.9 mmol/L Normal 3.5-5.1 [facility] Comment on above: Result Comment: TCPo tential interference from hemolysis Performed By: #### Pedro ORTEZ, [id number], [id number] ####Event Marketing Intern: LESLEE HERNANDEZ ([id number])[facility] ([facility])[address] Sodium [Moles/Vol] 142 mmol/L Normal 136-145 [facility] Comment on above: Performed By: #### Pedro ORTEZ, [id number], [id number] ####Event Marketing Intern: LESLEE HERNANDEZ ([phone])[facility] Urea nitrogen [Mass/Vol] 34 mg/dL High 8-21 [facility] Comment on above: Performed By: #### Pedro ORTEZ, [id number], [id number] ####Event Marketing Intern: LESLEE HERNANDEZ ([phone])[facility])[address] Basic metabolic 1998 panelon 06-13-2024 Anion gap [Moles/Vol] 10 mmol/L 3 - 13 mmol/L [facility] Calcium [Mass/Vol] 8.6 mg/dL 8.4 - 10. 2 mg/dL [facility] Chloride [Moles/Vol] 114 mmol/L High 98 - 10 7 mmol/L [facility] CO2 [Moles/Vol] 18 mmol/L Low 22 - 29 mmol/L [facility] Creatinine [Mass/Vol] 2.03 mg/dL High 0.72 - 1.25 mg/dL [facility] GFR/1.73 sq M.predicted (S/P/Bld) [Vol rate/Area] 40.2 mL/min Low - PINF [facility] Comment on above: Calculation based on the Chronic Kidney Disease Epidemiology Collaboration (CKD-EPI) equation refit without adjustment for race Glucose [Mass/Vol] 104 mg/dL High 74 - 100 mg/dL [facility] Interpretation and review of laboratory results Abnormal [facility] Potassium [Moles/Vol] 4.9 mmol/L 3.5 - 5.1 mmol/L [facility] Comment on above: TC Potential interference from hemolysis Sodium [Moles/Vol] 142 mmol/L 136 - 145 mmol/L [facility] Urea nitrogen [Mass/Vol] 34 mg/dL High 8 - 21 mg/dL [facility] CBC W Auto Differential pane l (Bld)Ordered By: Maritza Knowles on 06-13-2024 Basophils (Bld) [#/Vol] 0 10*3/uL 0.0 - 0.2 10*3/uL [facility] Basophils/100 WBC (Bld) 0.2 % 0.0 - 2.0 % [facility] Eosinophils (Bld) [#/Vol] 0 10*3/uL 0.0 - 0.5 10*3/uL [facility] Eosinophils/100 WBC (Bld) 0.1 % 0.0 - 6.0 % [facility] Erythrocyte distribution width (RBC) [Ratio] 14.6 % 11.5 - 15.0 % [facility] Hematocrit (Bld) [Volume fraction] 52.1 % High 40.0 - 52.0 % [facility] Hemoglobin (Bld) [Mass/Vol] 16.4 g/dL 13.0 - 18.0 g/dL [facility] Immature granulocytes (Bld) [#/Vol] 0 10*3/uL NINF - 0.1 10*3/uL [facility] Immature granulocytes/100 WBC (Bld) 0.2 % 0.0 - 2.0 % [facility] Interpretation and review of laboratory results Abnormal [facility] Lymphocytes (Bld) [#/Vol] 1.7 10*3/uL 1.0 - 4.3 10*3/uL [facility] Lymphocytes/100 WBC (Bld) 20 % 15.0 - 45.0 % [facility] MCH (RBC) [Entitic mass] 32.5 pg 26.0 - 34.0 pg [facility] MCHC (RBC) [Mass/Vol] 31.5 % 30.5 - 36.0 % [facility] MCV (RBC) [Entitic vol] 103.2 fL High 77.0 - 99.0 fL [facility] Monocytes (Bld) [#/Vol] 0.6 10*3/uL 0.0 - 0.9 10*3/uL [facility] Monocytes/100 WBC (Bld) 7.4 % 5.0 - 13.0 % [facility] Neutrophils (Bld) [#/Vol] 6.2 10*3/uL 1.8 - 7.5 10*3/uL [facility] Neutrophils/100 WBC (Bld) 72.1 % 38.0 - 82.0 % [facility] Nucleated RBC/100 WBC (Bld) [Ratio] 0 % [facility] Platelet mean volume (Bld) [Entitic vol] 10.7 fL 9.0 - 12.7 fL [facility] Platelets (Bld) [#/Vol] 217 10*3/uL 140 - 440 10*3/uL [facility] RBC (Bld) [#/Vol] 5.05 10*6/uL 4.40 - 5.9 0 10*6/uL [facility] WBC (Bld) [#/Vol] 8.7 10*3/uL 3.6 - 10.7 10*3/uL [facility] CBC WITH AUTO DIFFERENTIALon 06-13-2024 Basophils (Bld) [#/Vol] 0.0 10*3/uL Normal 0.0-0.2 [facility] Comment on above: Performed By: #### L [id number] ####Event Marketing Intern: LESLEE HERNANDEZ ([phone])[facility]AL[facility] ([facility])[address] [place] [address] Basophils/100 WBC (Bld) 0.2 % Normal 0.0-2.0 [facility] Comment on above: Performed By: #### L [id number] ####Event Marketing Intern: LESLEE TORRESCER ([phone])[facility] BARBNEW MEXICO [facility] L[facility]GASN (SBHLAB)[address] Eosinophils (Bld) [#/Vol] 0.0 10*3/uL Normal 0.0-0.5 [facility] Comment on above: Performed By: #### L [id number] ####Event Marketing Intern: LESLEE HERNANDEZ ([phone])[facility] BARBNEW MEXICO [facility] AT L[facility] VEGASN (SBHLAB)[address] Eosinophils/100 WBC (Bld) 0.1 % Normal 0.0-6.0 [facility] Comment on above: Performed By: #### L [id number] ####Event Marketing Intern: LESLEE TURKTYRONE ([phone])[facility] (SBAB)[address] [place] [address] Erythrocyte distribution width (RBC) [Ratio] 14.6 % Normal 11.5-15.0 [facility] Comment on above: Performed By: #### L [id number] ####Event Marketing Intern: LESLEE TURKTYRONE ([phone])[facility] ([facility])[address] Hematocrit (Bld) [Volume fraction] 52.1 % High 40.0-52.0 [facility] Comment on above: Performed By: #### L [id number] ####Event Marketing Intern: LESLEE HERNANDEZ ([id number])[facility] BARBNEW MEXICO [facility] AT L[facility] VEGASN (SBHLAB)[address] Hemoglobin (Bld) [Mass/Vol] 16.4 g/dL Normal 13.0-18.0 [facility] Comment on above: Performed By: #### L [id number] ####Event Marketing Intern: LESLEE HERNANDEZ ([phone])[facility] BARBNEW MEXICO BEH[facility]IOR[facility] INSTITUTE AT LAS VEGASN (SBHLAB)[address] [place] [address] IMMATURE GRANS % 0.2 % Normal 0.0-2.0 [facility] Comment on above: Performed By: #### L [id number] ####Event Marketing Intern: LESLEE HERNANDEZ ([phone])[facility]OS[facility]ITALKeyon KNOTTNEW MEXICO BEHAVIOR[facility] HE[facility] INSTITUTE AT LAS VEGASMarguerite (SBHLAB)[address] IMMATURE GRANS ABSOLUTE 0.0 10*3/uL Normal <0.1 [facility] Comment on above: Performed By: #### L [id number] ####Event Marketing Intern: LESLEE TURKTYRONE ([phone])[facility]ITALKeyon K[facility]TBANNER [facility] (SBHLAB)[address] Lymphocytes (Bld) [#/Vol] 1.7 10*3/uL Normal 1.0-4.3 [facility] Comment on above: Performed By: #### L [id number] ####Event Marketing Intern: LESLEE HERNANDEZ ([phone])[facility]ITALKey[facility] [place] (SBHLAB)[address] [place] [address] Lymphocytes/100 WBC (Bld) 20.0 % Normal 15.0-45.0 [facility] Comment on above: Performed By: #### L [id number] ####Event Marketing Intern: LESLEE TURKTYRONE ([phone])[facility]ITAL[facility] [place] (SBHLAB)[address] MCH (RBC) [Entitic mass] 32.5 pg Normal 26.0-34.0 [facility] Comment on above: Performed By: #### L [id number] ####Event Marketing Intern: LESLEE HERNANDEZ ([id number])[facility] (SB[facility])[address] MCHC 31.5 % Normal 30.5-36.0 [facility] Comment on above: Performed By: #### L [id number] ####Event Marketing Intern: LESLEE HERNANDEZ ([phone])[facility] (SBHLAB)[address] MCV (RBC) [Entitic vol] 103.2 fL High 77.0-99.0 [facility] Comment on above: Performed By: #### L [id number] ####Event Marketing Intern: LESLEE HERNANDEZ ([phone])[facility] [place] (SB[facility]AB)[address] Monocytes (Bld) [#/Vol] 0.6 10*3/uL Normal 0.0-0.9 [facility] Comment on above: Performed By: #### L [id number] ####Event Marketing Intern: LESLEE HERNANDEZ ([phone])[facility] [place] (SB[facility]AB)[address] Monocytes/100 WBC (Bld) 7.4 % Normal 5.0-13.0 [facility] Comment on above: Performed By: #### L [id number] ####Event Marketing Intern: LESLEE HERNANDEZ ([phone])[facility]A [facility] (SBHLAB)[address] NEUTROPHILS ABSOLUTE 6.2 10*3/uL Normal 1.8-7.5 [facility] Comment on above: Performed By: #### L [id number] ####Event Marketing Intern: LESLEE HERNANDEZ ([phone])[facility] [place] (SB[facility])[address] Neutrophils/100 WBC (Bld) 72.1 % Normal 38.0-82.0 [facility] Comment on above: Performed By: #### L [id number] ####Event Marketing Intern: LESLEE HERNANDEZ ([phone])[facility] [place] (SB[facility])[address] NRBC 0.0 /100 WBCs Normal 0.0-2.0 [facility] Comment on above: Performed By: #### L [id number] ####Event Marketing Intern: LESLEE HERNANDEZ ([phone])[facility] [place] (SB[facility]AB)[address] Platelet mean volume (Bld) [Entitic vol] 10.7 fL Normal 9.0-12.7 [facility] Comment on above: Performed By: #### L [id number] ####Event Marketing Intern: LESLEE HERNANDEZ ([phone])[facility]OSPITALKeyon MCFADDENMarguerite (SBHLAB)[address] Platelets (Bld) [#/Vol] 217 10*3/uL Normal 140-440 [facility] Comment on above: Performed By: #### L [id number] ####Event Marketing Intern: LESLEE HERNANDEZ ([phone])[facility]OSPITALKeyon KNOTTNEW MEXICO BEHAV[facility] IN[facility] AT L[facility] VEGASN (SBHLAB)[address] RBC (Bld) [#/Vol] 5.05 10*6/uL Normal 4.40-5.90 [facility] Comment on above: Performed By: #### L [id number] ####Event Marketing Intern: LESLEE HERNANDEZ ([phone])[facility]OSPITALKeyon [facility]TBANNER [facility] (SBHLAB)[address] [place] [address] WBC (Bld) [#/Vol] 8.7 10*3/uL Normal 3.6-10.7 [facility] Comment on above: Performed By: #### L [id number] ####Event Marketing Intern: LESLEE HERNANDEZ ([phone])[facility]ITALKeyon [place] (SBHLAB)[address] [place] [address] COMPREHENSIVE METABOLIC PANE Ming 06-13-2024 Albumin [Mass/Vol] 3.1 g/dL Low 3.5-5.0 [facility] Comment on above: Performed By: #### L [id number], [id number], LAB17, [id number], LAB99 ####Event Marketing Intern: LESLEE HERNANDEZ ([phone])[facility]OSPITALKeyon KNOTTEFRAÍNN (SBHLAB)[address] ALP [Catalytic activity/Vol] 129 U/L Normal 40-150 [facility] Comment on above: Performed By: #### L [id number], [id number], LAB17, [id number], LAB99 ####Event Marketing Intern: LESLEE HERNANDEZ ([phone])[facility] (SBHLAB)[address] ALT [Catalytic activity/Vol] 121 U/L High <40 [facility] Comment on above: Performed By: #### L [id number], [id number], LAB17, [id number], LAB99 ####Event Marketing Intern: LESLEE HERNANDEZ ([phone])[facility] LELOBANNER PAYSON MEDICAL CENTER (SBHLAB)[address] Anion gap [Moles/Vol] 12 mmol/L Normal 3-13 [facility] Comment on above: Performed By: #### L AB129, [id number], LAB17, PFC710, LAB99 ####Event Marketing Intern: LESLEE HERNANDEZ ([id number])[facility] (SB[facility])[address] AST [Catalytic activity/Vol] 47 U/L High <34 [facility] Comment on above: Performed By: #### L AB129, [id number], LAB17, QLM711, LAB99 ####Event Marketing Intern: LESLEE HERNANDEZ ([phone])[facility] (HLAB)[address] Bilirubin [Mass/Vol] 1.5 mg/dL High <1.2 [facility] Comment on above: Performed By: #### L AB129, [id number], LAB17, PWF665, LAB99 ####Event Marketing Intern: LESLEE HERNANDEZ ([phone])[facility] (HLAB)[address] Calcium [Mass/Vol] 8.7 mg/dL Normal 8.4-10.2 [facility] Comment on above: Performed By: #### L AB129, [id number], LAB17, KAG445, LAB99 ####Event Marketing Intern: LESLEE HERNANDEZ ([id number])[facility] (HLAB)[address] [place] [address] [place] Chloride [Moles/Vol] 113 mmol/L High 98-107 [facility] Comment on above: Performed By: #### L AB129, [id number], LAB17, KIW671, LAB99 ####Event Marketing Intern: LESLEE [phone])[facility] (SBHLAB)[address] CO2 [Moles/Vol] 17 mmol/L Low 22-29 [facility] Comment on above: Performed By: #### L AB129, [id number], LAB17, VZA256, LAB99 ####Event Marketing Intern: LESLEE HERNANDEZ ([id number])[facility] (SBHLAB)[address] Creatinine [Mass/Vol] 2.32 mg/dL High 0.72-1.25 [facility] Comment on above: Performed By: #### L AB129, [id number], LAB17, KZB188, LAB99 ####Event Marketing Intern: LESLEE HERNANDEZ ([phone])[facility] ([facility])[address] [place] [address] GLOMERULAR FILTRATION RATE ML/MIN/1.73 SQ M.PREDICTED 34.2 mL/min/1.73m*2 Low >60.0 [facility] Comment on above: Result Comment: Calc ulation based on the Chronic Kidney Disease Epidemiology Collaboration (CKD-EPI) equation refit without adjustment for race Performed By: #### L AB129, [id number], LAB17, BFM512, LAB99 ####Event Marketing Intern: LELSEE HERNANDEZ ([phone])[facility] ([facility])[address] Glucose [Mass/Vol] 115 mg/dL High 74-100 [facility] Comment on above: Performed By: #### L AB129, [id number], LAB17, GRG007, LAB99 ####Event Marketing Intern: LESLEE HERNANDEZ ([id number])[facility] ([facility])[address] Potassium [Moles/Vol] 5.7 mmol/L High 3.5-5.1 [facility] Comment on above: Result Comment: [facility] potassium values may be up to 0.5 mmol/L lower than serum values. Performed By: #### L AB129, [id number], LAB17, GXN028, LAB99 ####Event Marketing Intern: LESLEE HERNANDEZ ([phone])[facility]ITALKeyon KNOTTNEW MEXICO BEHAVIOR[facility] HEALTH INSTITUTE AT L[facility] VEGASN (SBHLAB)[address] Protein [Mass/Vol] 6.0 g/dL Low 6.4-8.3 [facility] Comment on above: Performed By: #### L AB129, [id number], LAB17, GHB416, LAB99 ####Event Marketing Intern: LESLEE HERNANDEZ ([phone])[facility]ITALKeyon KNOTTNEW MEXICO BE[facility]AVIOR[facility] AT L[facility] VEGASN (SBHLAB)[address] Sodium [Moles/Vol] 142 mmol/L Normal 136-145 [facility] Comment on above: Performed By: #### L AB129, [id number], LAB17, CXK003, LAB99 ####Event Marketing Intern: LESLEE HERNANDEZ ([phone])[facility] (SBHLAB)[address] Urea nitrogen [Mass/Vol] 36 mg/dL High 8-21 [facility] Comment on above: Performed By: #### L AB129, [id number], LAB17, PBU191, LAB99 ####Event Marketing Intern: LESLEE HERNANDEZ ([phone])[facility] ([facility])[address] Comprehensive metabolic 1998 panelon 06-13-2024 Albumin [Mass/Vol] 3.1 g/dL Low 3.5 - 5.0 g/dL [facility] ALP [Catalytic activity/Vol] 129 U/L 40 - 150 U/L [facility] ALT [Catalytic activity/Vol] 121 U/L High NINF - 40 U/L [facility] Anion gap [Moles/Vol] 12 mmol/L 3 - 13 mmol/L [facility] AST [Catalytic activity/Vol] 47 U/L High NINF - 34 U/L [facility] Bilirubin [Mass/Vol] 1.5 mg/dL High NINF - 1.2 mg/dL [facility] Calcium [Mass/Vol] 8.7 mg/dL 8.4 - 10. 2 mg/dL [facility] Chloride [Moles/Vol] 113 mmol/L High 98 - 10 7 mmol/L [facility] CO2 [Moles/Vol] 17 mmol/L Low 22 - 29 mmol/L [facility] Creatinine [Mass/Vol] 2.32 mg/dL High 0.72 - 1.25 mg/dL [facility] GFR/1.73 sq M.predicted (S/P/Bld) [Vol rate/Area] 34.2 mL/min Low - PINF [facility] Comment on above: Calculation based on the Chronic Kidney Disease Epidemiology Collaboration (CKD-EPI) equation refit without adjustment for race Glucose [Mass/Vol] 115 mg/dL High 74 - 100 mg/dL [facility] Interpretation and review of laboratory results Abnormal [facility] Potassium [Moles/Vol] 5.7 mmol/L High 3.5 - 5.1 mmol/L [facility] Comment on above: Plasma potassium heidi ues may be up to 0.5 mmol/L lower than serum values. Protein [Mass/Vol] 6 g/dL Low 6.4 - 8.3 g/dL [facility] Sodium [Moles/Vol] 142 mmol/L 136 - 145 mmol/L [facility] Urea nitrogen [Mass/Vol] 36 mg/dL High 8 - 21 mg/dL [facility] ED Nursing Noteon 06-13-2024 ED Nursing Note Pt presents for abdominal pain starting yesterday. States he vomited earlier today. Denies diarrhea. Also having loss of appetite. Denies urinary symptoms. Also having swelling in BLE x2 weeks. Hx CHF. +fatigue Normal [facility] ED Provider Noteon ED Provider Note Normal [facility] HIGH SENSITIVITY TROPONIN, S ERIAL BASELINEon 06-13-2024 TROPONIN HIGH SENSITIVITY BASELINE 50 ng/L High <=35 [facility] Comment on above: Performed By: #### L AB129, [id number], LAB17, [id number], LAB99 ####Event Marketing Intern: LESLEE HERNANDEZ ([phone])[facility] LELOALLISON (SBHLAB)[address] [place] [address] HIGH SENSITIVITY TROPONIN, S ERIAL, SECOND TESTon 06-13-2024 TROPONIN HS DELTA, BASELINE TO SECOND 3 ng/L Normal <=2 [facility] Comment on above: Result Comment: This specimen [...] clinical guidance. Performed By: #### L AB103, [id number] ####Event Marketing Intern: LESLEE HERNANDEZ ([phone])[facility] (SBHLAB)[address] [place] [address] TROPONIN HS, SERIAL REFLEX, TEST TWO 53 ng/L High <=35 [facility] Comment on above: Performed By: #### L AB103, [id number] ####Event Marketing Intern: LESLEE HERNANDEZ ([phone])[facility] (SBHLAB)[address] HIGH SENSITIVITY TROPONIN, S ERIAL, THIRD TESTon 06-13-2024 TROPONIN HS DELTA, SECOND TO THIRD -4 ng/L Normal <=2 [facility] Comment on above: Result Comment: This specimen [...] Inpatient algorithms. Performed By: #### L AB15, [id number], [id number] ####Event Marketing Intern: LESLEE HERNANDEZ ([phone])[facility] (SBHLAB)[address] [place] [address] [place] TROPONIN HS, SERIAL REFLEX, TEST THREE 49 ng/L High <=35 [facility] Comment on above: Performed By: #### L AB15, [id number], [id number] ####Event Marketing Intern: LESLEE HERNANDEZ ([phone])[facility] (SB[facility])[address] LIPASEon 06-13-2024 Lipase [Catalytic activity/Vol] 21 U/L Normal <55 [facility] Comment on above: Performed By: #### L AB129, [id number], LAB17, QVE353, LAB99 ####Event Marketing Intern: LESLEE HERNANDEZ ([phone])[facility] (SB[facility])[address] Laboratory - Chemistry and C hemistry - challengeon 06-13-2024 Magnesium [Mass/Vol] 2 mg/dL 1.6 - 2 .6 mg/dL [facility] Magnesium [Mass/Vol] 2.6 mg/dL 1.6 - 2 .6 mg/dL [facility] Comment on above: TC Potential interference from hemolysis TSH Qn 2.79 m[IU]/L [facility] Lipase [Catalytic activity/Vol] 21 U/L NINF - 55 U/L [facility] Lipase [Catalytic activity/V ol]on 06-13-2024 Interpretation and review of laboratory results Normal [facility] MAGNESIUMon 06-13-2024 Magnesium [Mass/Vol] 2.0 mg/dL Normal 1.6-2.6 [facility] Comment on above: Result Comment: ALEJANDRO R COMMENTS:Higher values can be expected in females during menses. Performed By: #### L AB15, [id number], [id number] ####Event Marketing Intern: LESLEE HERNANDEZ ([phone])[facility] ([facility])[address] Magnesium [Mass/Vol] 2.6 mg/dL Normal 1.6-2.6 [facility] Comment on above: Result Comment: TCPo tential interference from hemolysisORDER COMMENTS:Higher values can be expected in females during menses. Performed By: #### L AB103, [id number] ####Event Marketing Intern: LESLEE HERNANDEZ ([phone])[facility] ([facility])[address] Magnesium [Mass/Vol]on 06-13 Interpretation and review of laboratory results Normal [facility] Higher values can be expected in females during menses. [facility] Interpretation and review of laboratory results Normal [facility] Higher values can be expected in females during menses. [facility] NT PRO BNPon 06-13-2024 Natriuretic peptide B (Bld) [Mass/Vol] 42935 pg/mL High <125 [facility] Comment on above: Performed By: #### L AB129, [id number], LAB17, [id number], LAB99 ####Event Marketing Intern: LESLEE HERNANDEZ ([phone])[facility] (SBHL[facility])[address] [place] [address] Natriuretic peptide B [Mass/ Vol]on 06-13-2024 Interpretation and review of laboratory results Abnormal [facility] Natriuretic peptide B (Bld) [Mass/Vol] 92975 pg/mL High NINF - 125 pg/mL [facility] No Panel Informationon 06-13 Interpretation and review of laboratory results Abnormal [facility] Troponin HS Delta, Second to Third -4 ng/L NINF - 2 ng/L [facility] Comment on above: This specimen was [...] 49 ng/L High NINF - 35 ng/L [facility] Interpretation and review of laboratory results Abnormal [facility] Troponin HS Delta, Baseline to Second 3 ng/L NINF - 2 ng/L [facility] Comment on above: This specimen was [...] Interpretation and review of laboratory results Abnormal [facility] Troponin HS, Serial Baseline 50 ng/L High NINF - 35 ng/L [facility] THYROID STIMULATING HORMONEo n 06-13-2024 THYROID STIMULATING HORMONE 2.79 uIU/mL Normal 0.35-4.94 [facility] Comment on above: Performed By: #### L AB129, [id number], LAB17, [id number], LAB99 ####Event Marketing Intern: LESLEE HERNANDEZ ([phone])[facility] (SBHL[facility])[address] [place] [address] TSH Qnon 06-13-2024 Interpretation and review of laboratory results Normal [facility] XR Chest Single viewon 06-13 Cardiomegaly with pulmonary vascular congestion. No focal consolidation identified. Report Dictated on Electronically Signed By: Giovani Santacruz MD Electronically Signed Date/Time: 06/13/2024 2:56 PM EST [facility] Patient Name: CARLO MEDINA : 1980 [...] change of the thoracic spine is noted. [facility] Giovani Santacruz MD - 06/13/2024 Patient [...] Electronically Signed Date/Time: 06/13/2024 2:56 PM EST [facility] Radiology Study observation (narrative) [facility] XR Chest Single viewOrdered By: Giovani Santacruz on 06-13-2024 [facility] Work Phone: [phone] 06-10-2024 36 Normal [facility] 36 Pt called in stating he's been having stomach pains on and off yesterday and wants to know what he should do. He also states he is still having swelling in his feet and ankles. Normal [facility] 29on 06-08-2024 29 Addended by: RADHA HERNANDEZ on: 06/08/2024 12:19 PM Modules accepted: Orders Normal [facility] BASIC METABOLIC PANELon 05-30 Anion gap [Moles/Vol] 7 mmol/L Normal 3-13 [facility] Comment on above: Performed By: #### L AB15, LAB20 ####Event Marketing Intern: NICOLE BOWERS ([id number])[facility] ([address] Calcium [Mass/Vol] 9.2 mg/dL Normal 8.4-10.2 [facility] Comment on above: Performed By: #### L AB15, LAB20 ####Event Marketing Intern: NICOLE BOWERS ([phone])[facility] (SWRLAB)[address] [place] [address] [place] Chloride [Moles/Vol] 114 mmol/L High 98-107 [facility] Comment on above: Performed By: #### L AB15, LAB20 ####Event Marketing Intern: NICOLE BOWERS ([id number])[facility] (SWRLAB)[address] [place] [address] [place] CO2 [Moles/Vol] 23 mmol/L Normal 22-29 [facility] Comment on above: Performed By: #### L AB15, LAB20 ####Event Marketing Intern: NICOLE BOWERS ([id number])[facility] (SWRLAB)[address] [place] [address] [place] Creatinine [Mass/Vol] 2.03 mg/dL High 0.72-1.25 [facility] Comment on above: Performed By: #### L AB15, LAB20 ####Event Marketing Intern: NICOLE BOWERS ([id number])[facility] (SWRLAB)[address] [place] [address] [place] GLOMERULAR FILTRATION RATE ML/MIN/1.73 SQ M.PREDICTED 40.2 mL/min/1.73m*2 Low >60.0 [facility] Comment on above: Result Comment: Calc ulation based on the Chronic Kidney Disease Epidemiology Collaboration (CKD-EPI) equation refit without adjustment for race Performed By: #### L AB15, LAB20 ####Event Marketing Intern: NICOLE BOWERS ([phone])[facility] (SWRLAB)[address] [place] [address] [place] Glucose [Mass/Vol] 123 mg/dL High 74-100 [facility] Comment on above: Performed By: #### L AB15, LAB20 ####Event Marketing Intern: NICOLE BOWERS ([phone])[facility] [place] (SWRLAB)[address] [place] [address] [place] Potassium [Moles/Vol] 5.5 mmol/L High 3.5-5.1 [facility] Comment on above: Result Comment: [facility] potassium values may be up to 0.5 mmol/L lower than serum values. Performed By: #### L AB15, LAB20 ####Event Marketing Intern: NICOLE BOWERS ([id number])[facility] KAMALJIT RITTMAN (SWRLAB)[address] [place] [address] Sodium [Moles/Vol] 144 mmol/L Normal 136-145 [facility] Comment on above: Performed By: #### L AB15, LAB20 ####Event Marketing Intern: NICOLE BOWERS ([id number])[facility] KAMALJIT RITTMAN (SWRLAB)[address] [place] [address] Urea nitrogen [Mass/Vol] 35 mg/dL High 8-21 [facility] Comment on above: Performed By: #### L AB15, LAB20 ####Event Marketing Intern: NICOLE BOWERS ([id number])[facility]ITALKAMALJIT VKernel CorporationTMAN (SWRLAB)[address] [place] [address] Basic metabolic 1998 panelon 06-08-2024 Anion gap [Moles/Vol] 7 mmol/L 3 - 13 mmol/L [facility] Calcium [Mass/Vol] 9.2 mg/dL 8.4 - 10. 2 mg/dL [facility] Chloride [Moles/Vol] 114 mmol/L High 98 - 10 7 mmol/L [facility] CO2 [Moles/Vol] 23 mmol/L 22 - 29 mmol/L [facility] Creatinine [Mass/Vol] 2.03 mg/dL High 0.72 - 1.25 mg/dL [facility] GFR/1.73 sq M.predicted (S/P/Bld) [Vol rate/Area] 40.2 mL/min Low - PINF [facility] Comment on above: Calculation based on the Chronic Kidney Disease Epidemiology Collaboration (CKD-EPI) equation refit without adjustment for race Glucose [Mass/Vol] 123 mg/dL High 74 - 100 mg/dL [facility] Potassium [Moles/Vol] 5.5 mmol/L High 3.5 - 5.1 mmol/L [facility] Comment on above: Plasma potassium heidi ues may be up to 0.5 mmol/L lower than serum values. Sodium [Moles/Vol] 144 mmol/L 136 - 145 mmol/L [facility] Urea nitrogen [Mass/Vol] 35 mg/dL High 8 - 21 mg/dL [facility] HEPATIC FUNCTION PANELon Albumin [Mass/Vol] 3.4 g/dL Low 3.5-5.0 [facility] Comment on above: Performed By: #### L AB15, LAB20 ####Event Marketing Intern: NICOLE BOWERS ([phone])[facility] KAMALJIT RITTMAN (SWRLAB)[address] [place] [address] [place] ALP [Catalytic activity/Vol] 128 U/L Normal 40-150 [facility] Comment on above: Performed By: #### L AB15, LAB20 ####Event Marketing Intern: NICOLE BOWERS ([phone])[facility] KAMALJIT RITTMAN (SWRLAB)[address] [place] [address] [place] ALT [Catalytic activity/Vol] 146 U/L High <40 [facility] Comment on above: Performed By: #### L AB15, LAB20 ####Event Marketing Intern: NICOLE BOWERS ([id number])[facility] [place]ALJIT R[place]TMAN (SWRLAB)[address] [place] [address] [place] AST [Catalytic activity/Vol] 51 U/L High <34 [facility] Comment on above: Performed By: #### L AB15, LAB20 ####Event Marketing Intern: NICOLE BOWERS ([id number])[facility] [place] (SWRLAB)[address] [place] [address] [place] Bilirubin [Mass/Vol] 1.7 mg/dL High <1.2 [facility] Comment on above: Performed By: #### L AB15, LAB20 ####Event Marketing Intern: NICOLE BOWERS ([id number])[facility] [place]ALJIT [place]AN (SWRLAB)[address] [place] [address] [place] Bilirubin.indirect [Mass/Vol] 0.7 mg/dL High <0.5 [facility] Comment on above: Performed By: #### L AB15, LAB20 ####Event Marketing Intern: NICOLE BOWERS ([phone])[facility] (SWRLAB)[address] [place] [address] Protein [Mass/Vol] 6.2 g/dL Low 6.4-8.3 [facility] Comment on above: Result Comment: Seru m protein values are higher than plasma values. Samples from recumbent persons are lower by up to 0.5 g/dL as compared to ambulatory persons. After 60 years values are lower by up to 0.2 g/dL. Performed By: #### L AB15, LAB20 ####Event Marketing Intern: NICOLE BOWERS ([id number])[facility] (SWRLAB)[address] [place] [address] Hepatic function 2000 panelo n 06-08-2024 Albumin [Mass/Vol] 3.4 g/dL Low 3.5 - 5.0 g/dL [facility] ALP [Catalytic activity/Vol] 128 U/L 40 - 150 U/L [facility] ALT [Catalytic activity/Vol] 146 U/L High NINF - 40 U/L [facility] AST [Catalytic activity/Vol] 51 U/L High [facility] - 34 U/L [facility] Bilirubin [Mass/Vol] 1.7 mg/dL High [facility] - 1.2 mg/dL [facility] Bilirubin.conjugated [Mass/Vol] 0.7 mg/dL High [facility] - 0.5 mg/dL [facility] Protein [Mass/Vol] 6.2 g/dL Low 6.4 - 8.3 g/dL [facility] Comment on above: Serum protein values are higher than plasma values. Samples from recumbent persons are lower by up to 0.5 g/dL as compared to ambulatory persons. After 60 years values are lower by up to 0.2 g/dL. No Panel Informationon 06-08 Interpretation and review of laboratory results Abnormal [facility] Progress Noteon 06-08-2024 Progress Note Normal [facility] 36on 06-07-2024 36 Patient unable to pa y the 50% at time of appt due to declined hcap and no health insurance. [facility] 36on 06-04-2024 36 Spoke with the patient and he does not have health insurance nor does he qualify for medicaid or hospital judie per his girlfriend. He has a follow-up appt with cardio on 2023. I did give them the phone number for Teri Santos. [facility] 36 Please contact patient to schedule. [facility] 36on 06-03-2024 36 [facility] 36 S: Patient admitted to: [facility] 05/28/24 B: Discharged on : 06/01/24 A: Hospital follow up call initiated to discuss any medication changes, follow up appointments and discharge instructions: Metabolic acidosis R: No contact x 1 at : [phone] [facility] ED Nursing Noteon 06-03-2024 ED Nursing Note This RN asked if pt wanted to come back into triage to have lucrecia wrap placed. Significant other said, I'll put it on. Pt and significant other left. [facility] ED Nursing Note Pt presents to ED fo r c/o Bilateral leg swelling since yesterday and was recently diagnosed and admitted for CHF and stage 3 kidney disease [facility] ED Provider Noteon ED Provider Note [facility] 36on 06-02-2024 36 [facility] [id number] 06-01-2024 [id number] Labs drawn and given to More Evans at pts bedside [facility] CBC W Auto Differential pane l (Bld)on 06-01-2024 Basophils (Bld) [#/Vol] 0 10*3/uL 0.0 - 0.2 10*3/uL [facility] Basophils/100 WBC (Bld) 0.1 % 0.0 - 2.0 % [facility] Eosinophils (Bld) [#/Vol] 0 10*3/uL 0.0 - 0.5 10*3/uL [facility] Eosinophils/100 WBC (Bld) 0.3 % 0.0 - 6.0 % [facility] Erythrocyte distribution width (RBC) [Ratio] 14.1 % 11.5 - 15.0 % [facility] Hematocrit (Bld) [Volume fraction] 46.3 % 40.0 - 52.0 % [facility] Hemoglobin (Bld) [Mass/Vol] 14.8 g/dL 13.0 - 18.0 g/dL [facility] Immature granulocytes (Bld) [#/Vol] 0 10*3/uL NINF - 0.1 10*3/uL [facility] Immature granulocytes/100 WBC (Bld) 0.3 % 0.0 - 2.0 % [facility] Interpretation and review of laboratory results Abnormal [facility] Lymphocytes (Bld) [#/Vol] 1.9 10*3/uL 1.0 - 4.3 10*3/uL [facility] Lymphocytes/100 WBC (Bld) 28.7 % 15.0 - 45.0 % [facility] MCH (RBC) [Entitic mass] 31.9 pg 26.0 - 34.0 pg [facility] MCHC (RBC) [Mass/Vol] 32 % 30.5 - 36.0 % [facility] MCV (RBC) [Entitic vol] 99.8 fL High 77.0 - 99.0 fL [facility] Monocytes (Bld) [#/Vol] 0.5 10*3/uL 0.0 - 0.9 10*3/uL [facility] Monocytes/100 WBC (Bld) 7.2 % 5.0 - 13.0 % [facility] Neutrophils (Bld) [#/Vol] 4.2 10*3/uL 1.8 - 7.5 10*3/uL [facility] Neutrophils/100 WBC (Bld) 63.4 % 38.0 - 82.0 % [facility] Nucleated RBC/100 WBC (Bld) [Ratio] 0 % [facility] Platelet mean volume (Bld) [Entitic vol] 10.5 fL 9.0 - 12.7 fL [facility] Platelets (Bld) [#/Vol] 200 10*3/uL 140 - 440 10*3/uL [facility] RBC (Bld) [#/Vol] 4.64 10*6/uL 4.40 - 5.9 0 10*6/uL [facility] WBC (Bld) [#/Vol] 6.7 10*3/uL 3.6 - 10.7 10*3/uL [facility] CBC WITH AUTO DIFFERENTIALon 06-01-2024 Basophils (Bld) [#/Vol] 0.0 10*3/uL Normal 0.0-0.2 [facility] Comment on above: Performed By: #### L [id number] ####Event Marketing Intern: LESLEE HERNANDEZ ([id number])[facility] (SBHLAB)[address] Basophils/100 WBC (Bld) 0.1 % Normal 0.0-2.0 [facility] Comment on above: Performed By: #### L [id number] ####Event Marketing Intern: LESLEE HERNANDEZ ([id number])[facility] [place] (SBHLAB)[address] Eosinophils (Bld) [#/Vol] 0.0 10*3/uL Normal 0.0-0.5 [facility] Comment on above: Performed By: #### L [id number] ####Event Marketing Intern: LESLEE HERNANDEZ ([id number])[facility] [place] (SBHLAB)[address] Eosinophils/100 WBC (Bld) 0.3 % Normal 0.0-6.0 [facility] Comment on above: Performed By: #### L [id number] ####Event Marketing Intern: LESLEE HERNANDEZ ([id number])[facility] [place] (SBHLAB)[address] Erythrocyte distribution width (RBC) [Ratio] 14.1 % Normal 11.5-15.0 [facility] Comment on above: Performed By: #### L [id number] ####Event Marketing Intern: LESLEE HERNANDEZ ([id number])[facility] [place] (SBHLAB)[address] Hematocrit (Bld) [Volume fraction] 46.3 % Normal 40.0-52.0 [facility] Comment on above: Performed By: #### L [id number] ####Event Marketing Intern: LESLEE HERNANDEZ ([id number])[facility] [place] (SBHLAB)[address] Hemoglobin (Bld) [Mass/Vol] 14.8 g/dL Normal 13.0-18.0 [facility] Comment on above: Performed By: #### L [id number] ####Event Marketing Intern: LESLEE HERNANDEZ ([id number])[facility] (SBHLAB)[address] IMMATURE GRANS % 0.3 % Normal 0.0-2.0 [facility] Comment on above: Performed By: #### L [id number] ####Event Marketing Intern: LESLEE HERNANDEZ ([id number])[facility] [place] (SBHLAB)[address] IMMATURE GRANS ABSOLUTE 0.0 10*3/uL Normal <0.1 [facility] Comment on above: Performed By: #### L [id number] ####Event Marketing Intern: LESLEE HERNANDEZ ([id number])[facility] (SBHLAB)[address] [place] [address] Lymphocytes (Bld) [#/Vol] 1.9 10*3/uL Normal 1.0-4.3 [facility] Comment on above: Performed By: #### L [id number] ####Event Marketing Intern: LESLEE HERNANDEZ ([id number])[facility] (SBHLAB)[address] [place] [address] Lymphocytes/100 WBC (Bld) 28.7 % Normal 15.0-45.0 [facility] Comment on above: Performed By: #### L [id number] ####Event Marketing Intern: LESLEE HERNANDEZ ([id number])[facility] (SBHLAB)[address] MCH (RBC) [Entitic mass] 31.9 pg Normal 26.0-34.0 [facility] Comment on above: Performed By: #### L [id number] ####Event Marketing Intern: LESLEE HERNANDEZ ([id number])[facility] (SBHLAB)[address] MCHC 32.0 % Normal 30.5-36.0 [facility] Comment on above: Performed By: #### L [id number] ####Event Marketing Intern: LESLEE TURKTYRONE ([id number])[facility] (SBHLAB)[address] MCV (RBC) [Entitic vol] 99.8 fL High 77.0-99.0 [facility] Comment on above: Performed By: #### L [id number] ####Event Marketing Intern: LESLEE HERNANDEZ ([id number])[facility] [place] (SBHLAB)[address] Monocytes (Bld) [#/Vol] 0.5 10*3/uL Normal 0.0-0.9 [facility] Comment on above: Performed By: #### L [id number] ####Event Marketing Intern: LESLEE HERNANDEZ ([id number])[facility] [place] (SBHLAB)[address] Monocytes/100 WBC (Bld) 7.2 % Normal 5.0-13.0 [facility] Comment on above: Performed By: #### L [id number] ####Event Marketing Intern: LESLEE HERNANDEZ ([id number])[facility] (SBHLAB)[address] NEUTROPHILS ABSOLUTE 4.2 10*3/uL Normal 1.8-7.5 [facility] Comment on above: Performed By: #### L [id number] ####Event Marketing Intern: LESLEE HERNANDEZ ([id number])[facility] [place] (SBHLAB)[address] Neutrophils/100 WBC (Bld) 63.4 % Normal 38.0-82.0 [facility] Comment on above: Performed By: #### L [id number] ####Event Marketing Intern: LESLEE HERNANDEZ ([id number])[facility] [place] (SBHLAB)[address] NRBC 0.0 /100 WBCs Normal 0.0-2.0 [facility] Comment on above: Performed By: #### L [id number] ####Event Marketing Intern: LESLEE HERNANDEZ ([id number])[facility] [place] (SBHLAB)[address] Platelet mean volume (Bld) [Entitic vol] 10.5 fL Normal 9.0-12.7 [facility] Comment on above: Performed By: #### L [id number] ####Event Marketing Intern: LESLEE HERNANDEZ ([id number])[facility] [place] (SBHLAB)[address] Platelets (Bld) [#/Vol] 200 10*3/uL Normal 140-440 [facility] Comment on above: Performed By: #### L [id number] ####Event Marketing Intern: LESLEE HERNANDEZ ([id number])[facility] [place] (SBHLAB)[address] RBC (Bld) [#/Vol] 4.64 10*6/uL Normal 4.40-5.90 [facility] Comment on above: Performed By: #### L [id number] ####Event Marketing Intern: LESLEE HERNANDEZ ([id number])[facility] (SBHLAB)[address] WBC (Bld) [#/Vol] 6.7 10*3/uL Normal 3.6-10.7 [facility] Comment on above: Performed By: #### L [id number] ####Event Marketing Intern: LESLEE HERNANDEZ ([id number])[facility] [place] (SB[facility])[address] COMPREHENSIVE METABOLIC PANE Ming 06-01-2024 Albumin [Mass/Vol] 3.1 g/dL Low 3.5-5.0 [facility] Comment on above: Performed By: #### L [id number] ####Event Marketing Intern: LESLEE HERNANDEZ ([id number])[facility] (SBHLAB)[address] [place] [address] [place] ALP [Catalytic activity/Vol] 103 U/L Normal 40-150 [facility] Comment on above: Performed By: #### L [id number] ####Event Marketing Intern: LESLEE HERNANDEZ ([id number])[facility] (SBHLAB)[address] [place] [address] [place] ALT [Catalytic activity/Vol] 170 U/L High <40 [facility] Comment on above: Performed By: #### L AB17 ####Event Marketing Intern: LESLEE HERNANDEZ ([id number])[facility] [place] (SB[facility])[address] Anion gap [Moles/Vol] 7 mmol/L Normal 3-13 [facility] Comment on above: Performed By: #### L AB17 ####Event Marketing Intern: LESLEE HERNANDEZ ([id number])[facility] [place] (SB[facility]AB)[address] AST [Catalytic activity/Vol] 47 U/L High <34 [facility] Comment on above: Performed By: #### L [id number] ####Event Marketing Intern: LESLEE HERNANDEZ ([id number])[facility] (SBHLAB)[address] Bilirubin [Mass/Vol] 1.1 mg/dL Normal <1.2 [facility] Comment on above: Performed By: #### L AB17 ####Event Marketing Intern: LESLEE HERNANDEZ ([id number])[facility] [place] (SB[facility])[address] Calcium [Mass/Vol] 8.7 mg/dL Normal 8.4-10.2 [facility] Comment on above: Performed By: #### L AB17 ####Event Marketing Intern: LESLEE HERNANDEZ ([id number])[facility] [place] (SBHLAB)[address] [place] [address] [place] Chloride [Moles/Vol] 109 mmol/L High 98-107 [facility] Comment on above: Performed By: #### L AB17 ####Event Marketing Intern: LESLEE HERNANDEZ ([id number])[facility] (SBHLAB)[address] CO2 [Moles/Vol] 22 mmol/L Normal 22-29 [facility] Comment on above: Performed By: #### L AB17 ####Event Marketing Intern: LESLEE HERNANDEZ ([id number])[facility] (SBHLAB)[address] Creatinine [Mass/Vol] 2.05 mg/dL High 0.72-1.25 [facility] Comment on above: Performed By: #### L AB17 ####Event Marketing Intern: LESLEE HERNANDEZ ([id number])[facility] (HLAB)[address] [place] [address] [place] GLOMERULAR FILTRATION RATE ML/MIN/1.73 SQ M.PREDICTED 39.7 mL/min/1.73m*2 Low >60.0 [facility] Comment on above: Result Comment: Calc ulation based on the Chronic Kidney Disease Epidemiology Collaboration (CKD-EPI) equation refit without adjustment for race Performed By: #### L [id number] ####Event Marketing Intern: LESLEE HERNANDEZ ([id number])[facility] (HLAB)[address] [place] [address] [place] Glucose [Mass/Vol] 113 mg/dL High 74-100 [facility] Comment on above: Performed By: #### L AB17 ####Event Marketing Intern: LESLEE HERNANDEZ ([id number])[facility] (HLAB)[address] [place] [address] [place] Potassium [Moles/Vol] 4.7 mmol/L Normal 3.5-5.1 [facility] Comment on above: Result Comment: [facility] potassium values may be up to 0.5 mmol/L lower than serum values. Performed By: #### L AB17 ####Event Marketing Intern: LESLEE HERNANDEZ ([id number])[facility] (SBHLAB)[address] Protein [Mass/Vol] 5.5 g/dL Low 6.4-8.3 [facility] Comment on above: Performed By: #### L AB17 ####Event Marketing Intern: LESLEE HERNANDEZ ([id number])[facility] (SBHLAB)[address] Sodium [Moles/Vol] 138 mmol/L Normal 136-145 [facility] Comment on above: Performed By: #### L AB17 ####Event Marketing Intern: LESLEE HERNANDEZ ([id number])[facility] [place] (SBHLAB)[address] Urea nitrogen [Mass/Vol] 37 mg/dL High 8-21 [facility] Comment on above: Performed By: #### L AB17 ####Event Marketing Intern: LESLEE HERNANDEZ ([id number])[facility] [place] (SBHLAB)[address] Comprehensive metabolic 1998 panelon 06-01-2024 Albumin [Mass/Vol] 3.1 g/dL Low 3.5 - 5.0 g/dL [facility] ALP [Catalytic activity/Vol] 103 U/L 40 - 150 U/L [facility] ALT [Catalytic activity/Vol] 170 U/L High NINF - 40 U/L [facility] Anion gap [Moles/Vol] 7 mmol/L 3 - 13 mmol/L [facility] AST [Catalytic activity/Vol] 47 U/L High NINF - 34 U/L [facility] Bilirubin [Mass/Vol] 1.1 mg/dL NINF - 1.2 mg/dL [facility] Calcium [Mass/Vol] 8.7 mg/dL 8.4 - 10. 2 mg/dL [facility] Chloride [Moles/Vol] 109 mmol/L High 98 - 10 7 mmol/L [facility] CO2 [Moles/Vol] 22 mmol/L 22 - 29 mmol/L [facility] Creatinine [Mass/Vol] 2.05 mg/dL High 0.72 - 1.25 mg/dL [facility] GFR/1.73 sq M.predicted (S/P/Bld) [Vol rate/Area] 39.7 mL/min Low - PINF [facility] Comment on above: Calculation based on the Chronic Kidney Disease Epidemiology Collaboration (CKD-EPI) equation refit without adjustment for race Glucose [Mass/Vol] 113 mg/dL High 74 - 100 mg/dL [facility] Interpretation and review of laboratory results Abnormal [facility] Potassium [Moles/Vol] 4.7 mmol/L 3.5 - 5.1 mmol/L [facility] Comment on above: Plasma potassium heidi ues may be up to 0.5 mmol/L lower than serum values. Protein [Mass/Vol] 5.5 g/dL Low 6.4 - 8.3 g/dL [facility] Sodium [Moles/Vol] 138 mmol/L 136 - 145 mmol/L [facility] Urea nitrogen [Mass/Vol] 37 mg/dL High 8 - 21 mg/dL [facility] Consulton 06-01-2024 Consult Normal [facility] MR Abdomen WO contraston [...] MD Electronically Signed Date/Time: 06/01/2024 4:18 PM [facility] EMERGENCY [facility]PARTMENT RADIOLOGY SYSTEM Patient Name: CARLO [...] Lymphadenopathy: None Other: Trace bilateral pleural effusions. [facility] RADIOLOGY SYSTEM Shane Galarza MD - 06/01/2024 Patient Name: CARLO EMDINA : 1980 Exam Date/Time: 06/01/2024 10:41 Procedure: [...] Electronically Signed Date/Time: 06/01/2024 4:18 PM EST [facility] Radiology Study observation (narrative) [facility] [facility] 12-03-2024 Nursing Note Normal [facility] Nursing Note Normal [facility] Progress Noteon 06-01-2024 Progress Note Normal [facility] Progress Note Normal [facility] [id number] 05-31-2024 [id number] Normal [facility] Nursing Noteon 05-31-2024 Nursing Note Normal [facility] Progress Noteon 05-31-2024 Progress Note Normal [facility] Progress Note Normal [facility] Progress Note Normal [facility] US ABDOMEN COMPLETEon 2023 US ABDOMEN COMPLETE Normal [facility] US Abdomenon 05-31-2024 1. Gallbladder wall thickening [...] Electronically Signed Date/Time: 05/31/2024 4:20 PM EST [facility] 1980 [id number] Exam Date/Time: 05/31/2024 15:37 Procedure: US ABDOMEN [...] Ultrasound Melendez sign is positive. Per the medical technologist microbiology, the sonographic Melendez's sign was negative. Bile [...] 05/31/2024 Patient Name: CARLO MEDINA : 1980 Exam [...] Ultrasound Melendez sign is positive. Per the medical technologist microbiology, the sonographic Melendez's sign was negative. Bile [...] Electronically Signed Date/Time: 05/31/2024 4:20 PM EST [facility] Radiology Study observation (narrative) [facility] US AbdomenOrdered By: Layton Hi on 05-31-2024 [facility] Work Phone: 25-hydroxyvitamin D3 [Mass/V ol]on 05-30-2024 Interpretation and review of laboratory results Abnormal [facility] Therapy is based on measurement of Total 25-OHD with the following classification levels: Less than 20 ng/mL: Indicative of Vit D deficiency 20-30 ng/mL: Suggests Vit D insufficiency Optimal: Greater than or equal to 30 ng/mL Test performed by eMindful Competitive Immunoassay, measuring Total Vitamin D, not individual fractions. [facility] 30on 05-30-2024 30 Normal [facility] 36on 05-30-2024 36 Normal [facility] CBC W Auto Differential pane l (Bld)on 05-30-2024 Basophils (Bld) [#/Vol] 0 10*3/uL 0.0 - 0.2 10*3/uL [facility] Basophils/100 WBC (Bld) 0.3 % 0.0 - 2.0 % [facility] Eosinophils (Bld) [#/Vol] 0.1 10*3/uL 0.0 - 0.5 10*3/uL [facility] Eosinophils/100 WBC (Bld) 0.6 % 0.0 - 6.0 % [facility] Erythrocyte distribution width (RBC) [Ratio] 14.1 % 11.5 - 15.0 % [facility] Hematocrit (Bld) [Volume fraction] 44.7 % 40.0 - 52.0 % [facility] Hemoglobin (Bld) [Mass/Vol] 14.5 g/dL 13.0 - 18.0 g/dL [facility] Immature granulocytes (Bld) [#/Vol] 0 10*3/uL NINF - 0.1 10*3/uL [facility] Immature granulocytes/100 WBC (Bld) 0.3 % 0.0 - 2.0 % [facility] Interpretation and review of laboratory results Normal [facility] Lymphocytes (Bld) [#/Vol] 1.7 10*3/uL 1.0 - 4.3 10*3/uL [facility] Lymphocytes/100 WBC (Bld) 22.3 % 15.0 - 45.0 % [facility] MCH (RBC) [Entitic mass] 31.8 pg 26.0 - 34.0 pg [facility] MCHC (RBC) [Mass/Vol] 32.4 % 30.5 - 36.0 % [facility] MCV (RBC) [Entitic vol] 98 fL 77.0 - 99.0 fL [facility] Monocytes (Bld) [#/Vol] 0.7 10*3/uL 0.0 - 0.9 10*3/uL [facility] Monocytes/100 WBC (Bld) 8.9 % 5.0 - 13.0 % [facility] Neutrophils (Bld) [#/Vol] 5.2 10*3/uL 1.8 - 7.5 10*3/uL [facility] Neutrophils/100 WBC (Bld) 67.6 % 38.0 - 82.0 % [facility] Nucleated RBC/100 WBC (Bld) [Ratio] 0.3 % [facility] Platelet mean volume (Bld) [Entitic vol] 10.6 fL 9.0 - 12.7 fL [facility] Platelets (Bld) [#/Vol] 204 10*3/uL 140 - 440 10*3/uL [facility] RBC (Bld) [#/Vol] 4.56 10*6/uL 4.40 - 5.9 0 10*6/uL [facility] WBC (Bld) [#/Vol] 7.7 10*3/uL 3.6 - 10.7 10*3/uL [facility] CBC WITH AUTO DIFFERENTIALon 05-30-2024 Basophils (Bld) [#/Vol] 0.0 10*3/uL Normal 0.0-0.2 [facility] Comment on above: Performed By: #### L [id number] ####Event Marketing Intern: LESLEE HERNANDEZ ([phone])[facility] ([facility])[address] [place] [address] Basophils/100 WBC (Bld) 0.3 % Normal 0.0-2.0 [facility] Comment on above: Performed By: #### L [id number] ####Event Marketing Intern: LESLEE TURKTYRONE ([phone])[facility] [place] ([facility])[address] Eosinophils (Bld) [#/Vol] 0.1 10*3/uL Normal 0.0-0.5 [facility] Comment on above: Performed By: #### L [id number] ####Event Marketing Intern: LESLEE TURKTYRONE ([phone])[facility]BNEW MEX[facility] L[facility] VEGASN (SBHLAB)[address] Eosinophils/100 WBC (Bld) 0.6 % Normal 0.0-6.0 [facility] Comment on above: Performed By: #### L [id number] ####Event Marketing Intern: LESLEE MCNEILLRAMON ([phone])[facility] ([facility])[address] [place] [address] Erythrocyte distribution width (RBC) [Ratio] 14.1 % Normal 11.5-15.0 [facility] Comment on above: Performed By: #### L [id number] ####Event Marketing Intern: LESLEE MARY ([phone])[facility] ([facility])[address] [place] [address] Hematocrit (Bld) [Volume fraction] 44.7 % Normal 40.0-52.0 [facility] Comment on above: Performed By: #### L [id number] ####Event Marketing Intern: LESLEE HERNANDEZ ([phone])[facility]BNEW [facility] L[facility] VEGASN (SBHLAB)[address] Hemoglobin (Bld) [Mass/Vol] 14.5 g/dL Normal 13.0-18.0 [facility] Comment on above: Performed By: #### L [id number] ####Event Marketing Intern: LESLEE HERNANDEZ ([phone])[facility]BNEW [facility]EX[facility] L[facility] VE[facility]ASN (SBHLAB)[address] [place] [address] IMMATURE GRANS % 0.3 % Normal 0.0-2.0 [facility] Comment on above: Performed By: #### L [id number] ####Event Marketing Intern: LESLEE HERNANDEZ ([phone])[facility]OS[facility]ITALKeyon BARBNEW MEXICO BEHAVIOR[facility] INSTITUTE AT LAS VEGASMarguerite (SBHLAB)[address] IMMATURE GRANS ABSOLUTE 0.0 10*3/uL Normal <0.1 [facility] Comment on above: Performed By: #### L [id number] ####Event Marketing Intern: LESLEE HERNANDEZ ([phone])[facility]ITALKeyon KNOTTNEW MEXICO BEH[facility]IOR[facility] INSTITUTE AT LAS VEGASN (SBHLAB)[address] Lymphocytes (Bld) [#/Vol] 1.7 10*3/uL Normal 1.0-4.3 [facility] Comment on above: Performed By: #### L [id number] ####Event Marketing Intern: LESLEE HERNANDEZ ([id number])[facility]ITALKeyon [facility]TBANNER [facility] (SBHLAB)[address] [place] [address] Lymphocytes/100 WBC (Bld) 22.3 % Normal 15.0-45.0 [facility] Comment on above: Performed By: #### L [id number] ####Event Marketing Intern: LESLEE HERNANDEZ ([id number])[facility]ITAL[facility]N (SBHLAB)[address] MCH (RBC) [Entitic mass] 31.8 pg Normal 26.0-34.0 [facility] Comment on above: Performed By: #### L [id number] ####Event Marketing Intern: LESLEE HERNANDEZ ([id number])[facility] (SBHLAB)[address] MCHC 32.4 % Normal 30.5-36.0 [facility] Comment on above: Performed By: #### L [id number] ####Event Marketing Intern: LESLEE HERNANDEZ ([id number])[facility] BARBNEW MEXICO BEHAVIORAL HEALTH INSTITUTE AT LAS VEGASN (SBHLAB)[address] MCV (RBC) [Entitic vol] 98.0 fL Normal 77.0-99.0 [facility] Comment on above: Performed By: #### L [id number] ####Event Marketing Intern: LESLEE HERNANDEZ ([id number])[facility] [place] (SB[facility])[address] Monocytes (Bld) [#/Vol] 0.7 10*3/uL Normal 0.0-0.9 [facility] Comment on above: Performed By: #### L [id number] ####Event Marketing Intern: LESLEE TURKTYROEN ([phone])[facility] [place] (SB[facility]AB)[address] Monocytes/100 WBC (Bld) 8.9 % Normal 5.0-13.0 [facility] Comment on above: Performed By: #### L [id number] ####Event Marketing Intern: LESLEE HERNANDEZ ([id number])[facility] [place] (SBHLAB)[address] [place] [address] NEUTROPHILS ABSOLUTE 5.2 10*3/uL Normal 1.8-7.5 [facility] Comment on above: Performed By: #### L [id number] ####Event Marketing Intern: LESLEE TURKTYRONE ([id number])[facility] [place] (SB[facility]AB)[address] Neutrophils/100 WBC (Bld) 67.6 % Normal 38.0-82.0 [facility] Comment on above: Performed By: #### L [id number] ####Event Marketing Intern: LESLEE HERNANDEZ ([id number])[facility] [place] (SB[facility])[address] NRBC 0.3 /100 WBCs Normal 0.0-2.0 [facility] Comment on above: Performed By: #### L [id number] ####Event Marketing Intern: LESLEE HERNANDEZ ([id number])[facility] [place] (SB[facility])[address] Platelet mean volume (Bld) [Entitic vol] 10.6 fL Normal 9.0-12.7 [facility] Comment on above: Performed By: #### L [id number] ####Event Marketing Intern: LESLEE HERNANDEZ ([id number])[facility] (SB[facility])[address] Platelets (Bld) [#/Vol] 204 10*3/uL Normal 140-440 [facility] Comment on above: Performed By: #### L [id number] ####Event Marketing Intern: LESLEE HERNANDEZ ([id number])[facility]ITALKeyon KNOTTNEW MEXICO BE[facility] IN[facility] AT L[facility] VEGASN (SBHLAB)[address] RBC (Bld) [#/Vol] 4.56 10*6/uL Normal 4.40-5.90 [facility] Comment on above: Performed By: #### L [id number] ####Event Marketing Intern: LESLEE HERNANDEZ ([phone])[facility]ITALKeyon KNOTTNEW MEXICO BE[facility] IN[facility] AT L[facility] VEGASN (SBHLAB)[address] WBC (Bld) [#/Vol] 7.7 10*3/uL Normal 3.6-10.7 [facility] Comment on above: Performed By: #### L [id number] ####Event Marketing Intern: LESLEE HERNANDEZ ([phone])[facility]ITALKey[facility] [place] (SBHLAB)[address] COMPREHENSIVE METABOLIC PANE Ming 05-30-2024 Albumin [Mass/Vol] 3.1 g/dL Low 3.5-5.0 [facility] Comment on above: Performed By: #### L [id number] ####Event Marketing Intern: LESLEE HERNANDEZ ([phone])[facility]OS[facility]ITALKeyon KNOTTNEW MEXICO BEH[facility]IOR[facility] INSTITUTE AT L[facility] VEGASN (SBHLAB)[address] ALP [Catalytic activity/Vol] 108 U/L Normal 38-126 [facility] Comment on above: Performed By: #### L [id number] ####Event Marketing Intern: LESLEE HERNANDEZ ([phone])[facility]ITALKey[facility] BARBNEW MEXICO BEHAVIOR[facility] HEALTH INSTITUTE AT LAS VEGASN (SBHLAB)[address] ALT [Catalytic activity/Vol] 160 U/L High 0-49 [facility] Comment on above: Performed By: #### L [id number] ####Event Marketing Intern: LESLEE HERNANDEZ ([id number])[facility] [place] (SBHLAB)[address] Anion gap [Moles/Vol] 6 mmol/L Normal 3-13 [facility] Comment on above: Performed By: #### L [id number] ####Event Marketing Intern: LESLEE HERNANDEZ ([id number])[facility] [place] (SB[facility])[address] AST [Catalytic activity/Vol] 70 U/L High 15-46 [facility] Comment on above: Performed By: #### L [id number] ####Event Marketing Intern: LESLEE HERNANDEZ ([id number])[facility] [place] (SB[facility])[address] Bilirubin [Mass/Vol] 1.1 mg/dL Normal 0.2-1.3 [facility] Comment on above: Performed By: #### L [id number] ####Event Marketing Intern: LESLEE HERNANDEZ ([id number])[facility] [place] (SB[facility])[address] Calcium [Mass/Vol] 8.4 mg/dL Normal 8.4-10.4 [facility] Comment on above: Performed By: #### L [id number] ####Event Marketing Intern: LESLEE HERNANDEZ ([id number])[facility] [place] (SBHLAB)[address] [place] [address] [place] Chloride [Moles/Vol] 114 mmol/L High 98-107 [facility] Comment on above: Performed By: #### L [id number] ####Event Marketing Intern: LESLEE HERNANDEZ ([phone])[facility] [place] (SBHLAB)[address] [place] [address] [place] CO2 [Moles/Vol] 17 mmol/L Low 22-30 [facility] Comment on above: Performed By: #### L [id number] ####Event Marketing Intern: LESLEE HERNANDEZ ([id number])[facility] [place] (SB[facility])[address] Creatinine [Mass/Vol] 1.88 mg/dL High 0.66-1.25 [facility] Comment on above: Performed By: #### L [id number] ####Event Marketing Intern: LESLEE HERNANDEZ ([id number])[facility]OS[facility]ITALKeyon [facility] ([facility])[address] GLOMERULAR FILTRATION RATE ML/MIN/1.73 SQ M.PREDICTED 44.1 mL/min/1.73m*2 Low >60.0 [facility] Comment on above: Result Comment: Calc ulation based on the Chronic Kidney Disease Epidemiology Collaboration (CKD-EPI) equation refit without adjustment for race Performed By: #### L [id number] ####Event Marketing Intern: LESLEE HERNANDEZ ([phone])[facility]ITAL[facility] ([facility])[address] Glucose [Mass/Vol] 124 mg/dL High 70-100 [facility] Comment on above: Performed By: #### L [id number] ####Event Marketing Intern: LESLEE HERNANDEZ ([id number])[facility]ITAL[facility] [place] ([facility])[address] [place] [address] [place] Potassium [Moles/Vol] 4.4 mmol/L Normal 3.5-5.1 [facility] Comment on above: Performed By: #### L [id number] ####Event Marketing Intern: LESLEE HERNANDEZ ([phone])[facility]ITALKey[facility] BARBALLISON ([facility]AB)[address] [place] [address] [place] Protein [Mass/Vol] 5.6 g/dL Low 6.3-8.2 [facility] Comment on above: Performed By: #### L [id number] ####Event Marketing Intern: LESLEE HERNANDEZ ([id number])[facility]BALL[place] (SBHLAB)[address] Sodium [Moles/Vol] 136 mmol/L Normal 135-145 [facility] Comment on above: Performed By: #### L [id number] ####Event Marketing Intern: LESLEE HERNANDEZ ([phone])[facility]ITAL[facility] [place] (SBHLAB)[address] Urea nitrogen [Mass/Vol] 42 mg/dL High 9-20 [facility] Comment on above: Performed By: #### L [id number] ####Event Marketing Intern: LESLEE HERNANDEZ ([phone])[facility]ITAL[facility] [place] (SBHLAB)[address] Comprehensive metabolic 1998 panelon 05-30-2024 Albumin [Mass/Vol] 3.1 g/dL Low 3.5 - 5.0 g/dL [facility] ALP [Catalytic activity/Vol] 108 U/L 38 - 126 U/L [facility] ALT [Catalytic activity/Vol] 160 U/L High 0 - 49 U/L [facility] Anion gap [Moles/Vol] 6 mmol/L 3 - 13 mmol/L [facility] AST [Catalytic activity/Vol] 70 U/L High 15 - 46 U/L [facility] Bilirubin [Mass/Vol] 1.1 mg/dL 0.2 - 1 .3 mg/dL [facility] Calcium [Mass/Vol] 8.4 mg/dL 8.4 - 10. 4 mg/dL [facility] Chloride [Moles/Vol] 114 mmol/L High 98 - 10 7 mmol/L [facility] CO2 [Moles/Vol] 17 mmol/L Low 22 - 30 mmol/L [facility] Creatinine [Mass/Vol] 1.88 mg/dL High 0.66 - 1.25 mg/dL [facility] GFR/1.73 sq M.predicted (S/P/Bld) [Vol rate/Area] 44.1 mL/min Low - PINF [facility] Comment on above: Calculation based on the Chronic Kidney Disease Epidemiology Collaboration (CKD-EPI) equation refit without adjustment for race Glucose [Mass/Vol] 124 mg/dL High 70 - 100 mg/dL [facility] Interpretation and review of laboratory results Abnormal [facility] Potassium [Moles/Vol] 4.4 mmol/L 3.5 - 5.1 mmol/L [facility] Protein [Mass/Vol] 5.6 g/dL Low 6.3 - 8.2 g/dL [facility] Sodium [Moles/Vol] 136 mmol/L 135 - 145 mmol/L [facility] Urea nitrogen [Mass/Vol] 42 mg/dL High 9 - 20 mg/dL [facility] Laboratory - Chemistry and C hemistry - challengeon 05-30-2024 25-hydroxyvitamin D3 [Mass/Vol] ng/mL Low 30 - 100 ng/mL [facility] Parathyrin.intact [Mass/Vol] 227.6 pg/mL High 7.5 - 53.5 pg/mL [facility] Nursing Noteon 05-30-2024 Nursing Note Normal [facility] Nursing Note Pt did not want to get stuck for labs and wanted to talk with daytime Dr about need for daily labs. Normal [facility] PHOSPHORUSon 05-30-2024 Phosphate [Mass/Vol] 4.7 mg/dL High 2.5-4.5 [facility] Comment on above: Performed By: #### L [id number] ####Event Marketing Intern: LESLEE HERNANDEZ ([id number])[facility] (SBAB)[address] PTH INTACTon 05-30-2024 PTH, INTACT 227.6 pg/mL High 7.5-53.5 [facility] Comment on above: Performed By: #### L [id number], [id number] ####Event Marketing Intern: LESLEE HERNANDEZ ([phone])[facility] (SBHLAB)[address] [place] [address] Parathyrin.intact [Mass/Vol] on 05-30-2024 Interpretation and review of laboratory results Abnormal [facility] Phosphate [Moles/Vol]on Interpretation and review of laboratory results Abnormal [facility] Phosphate [Mass/Vol] 4.7 mg/dL High 2.5 - 4 .5 mg/dL [facility] Progress Noteon 05-30-2024 Progress Note Normal [facility] VITAMIN D DEFICIENCY SCREENI NG (VIT D 25)on 05-30-2024 VIT D 25-OH, TOTAL <13 Low 30-100 [facility] Comment on above: Result Comment: ALEJANDRO R COMMENTS:Therapy is based on measurement of Total 25-OHD with the following classification levels:Less than 20 ng/mL: Indicative of Vit D nramofxhsc25-59 ng/mL: Suggests Vit D insufficiencyOptimal: Greater than or equal to 30 ng/mLTest performed by eMindful Competitive Immunoassay, measuring Total Vitamin D, not individual fractions. Performed By: #### L [id number], [id number] ####Event Marketing Intern: LESLEE HERNANDEZ ([phone])[facility] BOGDANMarguerite (SBHLAB)[address] [place] [address] CBC W Auto Differential pane l (Bld)Ordered By: Roberto Puckett on 05-29-2024 Basophils (Bld) [#/Vol] 0 10*3/uL 0.0 - 0.2 10*3/uL [facility] Basophils/100 WBC (Bld) 0.2 % 0.0 - 2.0 % [facility] Eosinophils (Bld) [#/Vol] 0 10*3/uL 0.0 - 0.5 10*3/uL [facility] Eosinophils/100 WBC (Bld) 0.3 % 0.0 - 6.0 % [facility] Erythrocyte distribution width (RBC) [Ratio] 14 % 11.5 - 15.0 % [facility] Hematocrit (Bld) [Volume fraction] 42.8 % 40.0 - 52.0 % [facility] Hemoglobin (Bld) [Mass/Vol] 13.5 g/dL 13.0 - 18.0 g/dL [facility] Immature granulocytes (Bld) [#/Vol] 0 10*3/uL NINF - 0.1 10*3/uL [facility] Immature granulocytes/100 WBC (Bld) 0.3 % 0.0 - 2.0 % [facility] Interpretation and review of laboratory results Abnormal [facility] Lymphocytes (Bld) [#/Vol] 1.6 10*3/uL 1.0 - 4.3 10*3/uL [facility] Lymphocytes/100 WBC (Bld) 25.8 % 15.0 - 45.0 % [facility] MCH (RBC) [Entitic mass] 31.8 pg 26.0 - 34.0 pg [facility] MCHC (RBC) [Mass/Vol] 31.5 % 30.5 - 36.0 % [facility] MCV (RBC) [Entitic vol] 100.9 fL High 77.0 - 99.0 fL [facility] Monocytes (Bld) [#/Vol] 0.4 10*3/uL 0.0 - 0.9 10*3/uL [facility] Monocytes/100 WBC (Bld) 5.9 % 5.0 - 13.0 % [facility] Neutrophils (Bld) [#/Vol] 4.3 10*3/uL 1.8 - 7.5 10*3/uL [facility] Neutrophils/100 WBC (Bld) 67.5 % 38.0 - 82.0 % [facility] Nucleated RBC/100 WBC (Bld) [Ratio] 0 % [facility] Platelet mean volume (Bld) [Entitic vol] 10.7 fL 9.0 - 12.7 fL [facility] Platelets (Bld) [#/Vol] 160 10*3/uL 140 - 440 10*3/uL [facility] RBC (Bld) [#/Vol] 4.24 10*6/uL Low 4.40 - 5.9 0 10*6/uL [facility] WBC (Bld) [#/Vol] 6.3 10*3/uL 3.6 - 10.7 10*3/uL [facility] CBC WITH AUTO DIFFERENTIALon 05-29-2024 Basophils (Bld) [#/Vol] 0.0 10*3/uL Normal 0.0-0.2 [facility] Comment on above: Performed By: #### L [id number] ####Event Marketing Intern: LESLEE HERNANDEZ ([phone])[facility] ([facility])[address] [place] [address] Basophils/100 WBC (Bld) 0.2 % Normal 0.0-2.0 [facility] Comment on above: Performed By: #### L [id number] ####Event Marketing Intern: LESLEE HERNANDEZ ([phone])[facility] ([facility])[address] [place] [address] Eosinophils (Bld) [#/Vol] 0.0 10*3/uL Normal 0.0-0.5 [facility] Comment on above: Performed By: #### L [id number] ####Event Marketing Intern: LESLEE HERNANDEZ ([phone])[facility] [place] (SBHLAB)[address] Eosinophils/100 WBC (Bld) 0.3 % Normal 0.0-6.0 [facility] Comment on above: Performed By: #### L [id number] ####Event Marketing Intern: LESLEE HERNANDEZ ([id number])[facility] BARBNEW MEXICO [facility] HE[facility] INSTITUTE AT L[facility] VEGASN (SBHLAB)[address] Erythrocyte distribution width (RBC) [Ratio] 14.0 % Normal 11.5-15.0 [facility] Comment on above: Performed By: #### L [id number] ####Event Marketing Intern: LESLEE HERNANDEZ ([phone])[facility] ([facility])[address] [place] [address] Hematocrit (Bld) [Volume fraction] 42.8 % Normal 40.0-52.0 [facility] Comment on above: Performed By: #### L [id number] ####Event Marketing Intern: LESLEE HERNANDEZ ([phone])[facility]BNEW MEXICO [facility] IN[facility] AT L[facility] VEGASN (SBHLAB)[address] Hemoglobin (Bld) [Mass/Vol] 13.5 g/dL Normal 13.0-18.0 [facility] Comment on above: Performed By: #### L [id number] ####Event Marketing Intern: LESLEE HERNANDEZ ([phone])[facility] (SBHLAB)[address] IMMATURE GRANS % 0.3 % Normal 0.0-2.0 [facility] Comment on above: Performed By: #### L [id number] ####Event Marketing Intern: LESLEE HERNANDEZ ([phone])[facility] (SBHLAB)[address] IMMATURE GRANS ABSOLUTE 0.0 10*3/uL Normal <0.1 [place] [facility] Comment on above: Performed By: #### L [id number] ####Event Marketing Intern: LESLEE HERNANDEZ ([id number])[facility] (SBHLAB)[address] Lymphocytes (Bld) [#/Vol] 1.6 10*3/uL Normal 1.0-4.3 [facility] Comment on above: Performed By: #### L [id number] ####Event Marketing Intern: LESLEE TURKTYRONE ([phone])[facility] [place] ([facility])[address] Lymphocytes/100 WBC (Bld) 25.8 % Normal 15.0-45.0 [facility] Comment on above: Performed By: #### L [id number] ####Event Marketing Intern: LESLEE HERNANDEZ ([phone])[facility] [place] (SB[facility]AB)[address] MCH (RBC) [Entitic mass] 31.8 pg Normal 26.0-34.0 [facility] Comment on above: Performed By: #### L [id number] ####Event Marketing Intern: LESLEE HERNANDEZ ([phone])[facility] [place] ([facility])[address] MCHC 31.5 % Normal 30.5-36.0 [facility] Comment on above: Performed By: #### L [id number] ####Event Marketing Intern: LESLEE TURKTYRONE ([phone])[facility] [place] (SBHLAB)[address] [place] [address] MCV (RBC) [Entitic vol] 100.9 fL High 77.0-99.0 [facility] Comment on above: Performed By: #### L [id number] ####Event Marketing Intern: LESLEE HERNANDEZ ([phone])[facility] [place] ([facility])[address] Monocytes (Bld) [#/Vol] 0.4 10*3/uL Normal 0.0-0.9 [facility] Comment on above: Performed By: #### L [id number] ####Event Marketing Intern: LESLEE HERNANDEZ ([phone])[facility] [place] ([facility])[address] Monocytes/100 WBC (Bld) 5.9 % Normal 5.0-13.0 [facility] Comment on above: Performed By: #### L [id number] ####Event Marketing Intern: LESLEE HERNANDEZ ([phone])[facility] [place] (SBHLAB)[address] NEUTROPHILS ABSOLUTE 4.3 10*3/uL Normal 1.8-7.5 [facility] Comment on above: Performed By: #### L [id number] ####Event Marketing Intern: LESLEE HERNANDEZ ([phone])[facility] [place] ([facility])[address] Neutrophils/100 WBC (Bld) 67.5 % Normal 38.0-82.0 [facility] Comment on above: Performed By: #### L [id number] ####Event Marketing Intern: LESLEE HERNANDEZ ([phone])[facility] [place] ([facility])[address] NRBC 0.0 /100 WBCs Normal 0.0-2.0 [facility] Comment on above: Performed By: #### L [id number] ####Event Marketing Intern: LESLEE HERNANDEZ ([id number])[facility] [place] ([facility])[address] Platelet mean volume (Bld) [Entitic vol] 10.7 fL Normal 9.0-12.7 [facility] Comment on above: Performed By: #### L [id number] ####Event Marketing Intern: LESLEE HERNANDEZ ([phone])[facility] [place] ([facility])[address] Platelets (Bld) [#/Vol] 160 10*3/uL Normal 140-440 [facility] Comment on above: Performed By: #### L [id number] ####Event Marketing Intern: LESLEE HERNANDEZ ([id number])[facility] [place] ([facility])[address] RBC (Bld) [#/Vol] 4.24 10*6/uL Low 4.40-5.90 [facility] Comment on above: Performed By: #### L [id number] ####Event Marketing Intern: LESLEE HERNANDEZ ([id number])[facility] [place] (SBHLAB)[address] WBC (Bld) [#/Vol] 6.3 10*3/uL Normal 3.6-10.7 [facility] Comment on above: Performed By: #### L [id number] ####Event Marketing Intern: LESLEE HERNANDEZ ([phone])[facility] [place] ([facility])[address] COMPREHENSIVE METABOLIC PANE Ming 05-29-2024 Albumin [Mass/Vol] 3.0 g/dL Low 3.5-5.0 [facility] Comment on above: Performed By: #### L [id number] ####Event Marketing Intern: LESLEE HERNANDEZ ([phone])[facility] [place] ([facility])[address] ALP [Catalytic activity/Vol] 105 U/L Normal 38-126 [facility] Comment on above: Performed By: #### L AB17 ####Event Marketing Intern: LESLEE HERNANDEZ ([phone])[facility] [place] ([facility])[address] ALT [Catalytic activity/Vol] 114 U/L High 0-49 [facility] Comment on above: Performed By: #### L AB17 ####Event Marketing Intern: LESLEE HERNANDEZ ([phone])[facility] [place] ([facility])[address] Anion gap [Moles/Vol] 4 mmol/L Normal 3-13 [facility] Comment on above: Performed By: #### L AB17 ####Event Marketing Intern: LESLEE HERNANDEZ ([phone])[facility] [place] ([facility])[address] AST [Catalytic activity/Vol] 49 U/L High 15-46 [facility] Comment on above: Performed By: #### L AB17 ####Event Marketing Intern: LESLEE HERNANDEZ ([id number])[facility] [place] ([facility])[address] Bilirubin [Mass/Vol] 1.3 mg/dL Normal 0.2-1.3 [facility] Comment on above: Performed By: #### L AB17 ####Event Marketing Intern: LESLEE HERNANDEZ ([id number])[facility] [place] ([facility])[address] Calcium [Mass/Vol] 8.2 mg/dL Low 8.4-10.4 [facility] Comment on above: Performed By: #### L AB17 ####Event Marketing Intern: LESLEE HERNANDEZ ([phone])[facility] [place] ([facility])[address] Chloride [Moles/Vol] 114 mmol/L High 98-107 [facility] Comment on above: Performed By: #### L AB17 ####Event Marketing Intern: LESLEE HERNANDEZ ([phone])[facility] [place] ([facility])[address] CO2 [Moles/Vol] 18 mmol/L Low 22-30 [facility] Comment on above: Performed By: #### L AB17 ####Event Marketing Intern: LESLEE HERNANDEZ ([id number])[facility] [place] (SB[facility]AB)[address] [place] [address] [place] Creatinine [Mass/Vol] 1.73 mg/dL High 0.66-1.25 [facility] Comment on above: Performed By: #### L AB17 ####Event Marketing Intern: LESLEE HERNANDEZ ([id number])[facility] [place] ([facility])[address] GLOMERULAR FILTRATION RATE ML/MIN/1.73 SQ M.PREDICTED 48.7 mL/min/1.73m*2 Low >60.0 [facility] Comment on above: Result Comment: Calc ulation based on the Chronic Kidney Disease Epidemiology Collaboration (CKD-EPI) equation refit without adjustment for race Performed By: #### L AB17 ####Event Marketing Intern: LESLEE HERNANDEZ ([phone])[facility] [place] ([facility])[address] Glucose [Mass/Vol] 113 mg/dL High 70-100 [facility] Comment on above: Performed By: #### L AB17 ####Event Marketing Intern: LESLEE HERNANDEZ ([id number])[facility] [place] ([facility])[address] Potassium [Moles/Vol] 4.6 mmol/L Normal 3.5-5.1 [facility] Comment on above: Performed By: #### L AB17 ####Event Marketing Intern: LESLEE HERNANDEZ ([id number])[facility] [place] ([facility])[address] Protein [Mass/Vol] 5.5 g/dL Low 6.3-8.2 [facility] Comment on above: Performed By: #### L AB17 ####Event Marketing Intern: LESLEE HERNANDEZ ([phone])[facility] [place] ([facility])[address] Sodium [Moles/Vol] 136 mmol/L Normal 135-145 [facility] Comment on above: Performed By: #### L AB17 ####Event Marketing Intern: LESLEE HERNANDEZ ([phone])[facility] [place] ([facility])[address] Urea nitrogen [Mass/Vol] 41 mg/dL High 9-20 [facility] Comment on above: Performed By: #### L AB17 ####Event Marketing Intern: LESLEE HERNANDEZ ([phone])[facility] [place] ([facility])[address] Comprehensive metabolic 1998 panelon 11-30-2024 Albumin [Mass/Vol] 3 g/dL Low 3.5 - 5.0 g/dL [facility] ALP [Catalytic activity/Vol] 105 U/L 38 - 126 U/L [facility] ALT [Catalytic activity/Vol] 114 U/L High 0 - 49 U/L [facility] Anion gap [Moles/Vol] 4 mmol/L 3 - 13 mmol/L [facility] AST [Catalytic activity/Vol] 49 U/L High 15 - 46 U/L [facility] Bilirubin [Mass/Vol] 1.3 mg/dL 0.2 - 1 .3 mg/dL [facility] Calcium [Mass/Vol] 8.2 mg/dL Low 8.4 - 10. 4 mg/dL [facility] Chloride [Moles/Vol] 114 mmol/L High 98 - 10 7 mmol/L [facility] CO2 [Moles/Vol] 18 mmol/L Low 22 - 30 mmol/L [facility] Creatinine [Mass/Vol] 1.73 mg/dL High 0.66 - 1.25 mg/dL [facility] GFR/1.73 sq M.predicted (S/P/Bld) [Vol rate/Area] 48.7 mL/min Low - PINF [facility] Comment on above: Calculation based on the Chronic Kidney Disease Epidemiology Collaboration (CKD-EPI) equation refit without adjustment for race Glucose [Mass/Vol] 113 mg/dL High 70 - 100 mg/dL [facility] Interpretation and review of laboratory results Abnormal [facility] Potassium [Moles/Vol] 4.6 mmol/L 3.5 - 5.1 mmol/L [facility] Protein [Mass/Vol] 5.5 g/dL Low 6.3 - 8.2 g/dL [facility] Sodium [Moles/Vol] 136 mmol/L 135 - 145 mmol/L [facility] Urea nitrogen [Mass/Vol] 41 mg/dL High 9 - 20 mg/dL [facility] Consulton 05-29-2024 Consult Normal [facility] Progress Noteon 05-29-2024 Progress Note Normal [facility] Progress Note Normal [facility] Progress Note Normal [facility] US RETROPERITONEALon US RETROPERITONEAL Normal [facility] US Retroperitoneumon 024 No acute process. Echogenic kidneys suggesting medical renal disease. Report Dictated on Electronically Signed By: Shane Galarza MD Electronically Signed Date/Time: 05/29/2024 10:36 AM EST [facility] Patient Name: CARLO MEDINA : 1980 [...] none Mass: none Cyst: none Bladder: Normal. [facility] Shane Galarza MD - 05/29/2024 Patient Name: CARLO MEDINA : 1980 [facility]narrative[facility] 30on 05-28-2024 30 Normal [facility] BASIC METABOLIC PANELon 11-2 Anion gap [Moles/Vol] 10 mmol/L Normal 3-13 [facility] Comment on above: Performed By: #### L AB15, [id number] ####Event Marketing Intern: LESLEE HERNANDEZ ([phone])[facility] ([facility])[address] Calcium [Mass/Vol] 8.3 mg/dL Low 8.4-10.4 [facility] Comment on above: Performed By: #### L AB15, [id number] ####Event Marketing Intern: LESLEE HERNANDEZ ([id number])[facility] Chloride [Moles/Vol] 116 mmol/L High 98-107 [facility] Comment on above: Performed By: #### L AB15, [id number] ####Event Marketing Intern: LESLEE HERNANDEZ ([id number])[facility] (SBHLAB)[address] [place] [address] [place] CO2 [Moles/Vol] 14 mmol/L Low 22-30 [facility] Comment on above: Performed By: #### L AB15, [id number] ####Event Marketing Intern: LESLEE HERNANDEZ ([id number])[facility] (SBHLAB)[address] Creatinine [Mass/Vol] 1.74 mg/dL High 0.66-1.25 [facility] Comment on above: Performed By: #### L AB15, [id number] ####Event Marketing Intern: LESLEE HERNANDEZ ([phone])[facility] (SBHLAB)[address] GLOMERULAR FILTRATION RATE ML/MIN/1.73 SQ M.PREDICTED 48.4 mL/min/1.73m*2 Low >60.0 [facility] Comment on above: Result Comment: Calc ulation based on the Chronic Kidney Disease Epidemiology Collaboration (CKD-EPI) equation refit without adjustment for race Performed By: #### L AB15, [id number] ####Event Marketing Intern: LESLEE HERNANDEZ ([id number])[facility] [place] (SBHLAB)[address] Glucose [Mass/Vol] 96 mg/dL Normal 70-100 [facility] Comment on above: Performed By: #### L AB15, [id number] ####Event Marketing Intern: LESLEE HERNANDEZ ([id number])[facility] ([facility])[address] Potassium [Moles/Vol] 4.6 mmol/L Normal 3.5-5.1 [facility] Comment on above: Performed By: #### L AB15, [id number] ####Event Marketing Intern: LESLEE HERNANDEZ ([id number])[facility] ([facility])[address] Sodium [Moles/Vol] 139 mmol/L Normal 135-145 [facility] Comment on above: Performed By: #### L AB15, [id number] ####Event Marketing Intern: LESLEE HERNANDEZ ([id number])[facility] (SBHLAB)[address] [place] [address] [place] Urea nitrogen [Mass/Vol] 34 mg/dL High 9-20 [facility] Comment on above: Performed By: #### L AB15, [id number] ####Event Marketing Intern: LESLEE HERNANDEZ ([id number])[facility] (SBHLAB)[address] [place] [address] [place] Anion gap [Moles/Vol] 8 mmol/L Normal 3-13 [facility] Comment on above: Performed By: #### L [id number], LAB20, LAB15, HBL985, BMN071, CYE991 ####Event Marketing Intern: LESLEE HERNANDEZ ([id number])[facility] (SBHLAB)[address] Calcium [Mass/Vol] 9.1 mg/dL Normal 8.4-10.4 [facility] Comment on above: Performed By: #### L [id number], LAB20, LAB15, YGM938, HJY119, KVB086 ####Event Marketing Intern: LESLEE HERNANDEZ ([id number])[facility] (SBHLAB)[address] Chloride [Moles/Vol] 114 mmol/L High 98-107 [facility] Comment on above: Performed By: #### L [id number], LAB20, LAB15, DZL258, CUZ843, QMI330 ####Event Marketing Intern: LESLEE HERNANDEZ ([id number])[facility] (SBHLAB)[address] CO2 [Moles/Vol] 19 mmol/L Low 22-30 [facility] Comment on above: Performed By: #### L [id number], LAB20, LAB15, DQW198, TZB910, TXG319 ####Event Marketing Intern: LESLEE HERNANDEZ ([id number])[facility] (SB[facility]AB)[address] [place] [address] [place] Creatinine [Mass/Vol] 2.06 mg/dL High 0.66-1.25 [facility] Comment on above: Performed By: #### L [id number], LAB20, LAB15, AEU931, ZJD245, KDD707 ####Event Marketing Intern: LESLEE HERNANDEZ ([id number])[facility] (SBHLAB)[address] [place] [address] [place] GLOMERULAR FILTRATION RATE ML/MIN/1.73 SQ M.PREDICTED 39.5 mL/min/1.73m*2 Low >60.0 [facility] Comment on above: Result Comment: Calc ulation based on the Chronic Kidney Disease Epidemiology Collaboration (CKD-EPI) equation refit without adjustment for race Performed By: #### L [id number], LAB20, LAB15, [id number], MST088, IHL284 ####Event Marketing Intern: LESLEE HERNANDEZ ([id number])[facility] (SBHLAB)[address] Glucose [Mass/Vol] 120 mg/dL High 70-100 [facility] Comment on above: Performed By: #### L [id number], LAB20, LAB15, NVJ589, SMU718, CFA566 ####Event Marketing Intern: LESLEE HERNANDEZ ([id number])[facility] (SBHLAB)[address] Potassium [Moles/Vol] 4.6 mmol/L Normal 3.5-5.1 [facility] Comment on above: Performed By: #### L [id number], LAB20, LAB15, TXO332, ZXS738, ZMF123 ####Event Marketing Intern: LESLEE HERNANDEZ ([id number])[facility] (SBHLAB)[address] Sodium [Moles/Vol] 141 mmol/L Normal 135-145 [facility] Comment on above: Performed By: #### L [id number], LAB20, LAB15, HIR562, PFF949, KMV739 ####Event Marketing Intern: LESLEE HERNANDEZ ([id number])[facility] (SBHLAB)[address] [place] [address] [place] Urea nitrogen [Mass/Vol] 38 mg/dL High 9-20 [facility] Comment on above: Performed By: #### L [id number], LAB20, LAB15, OQE714, WWC444, DBQ434 ####Event Marketing Intern: LESLEE HERNANDEZ ([phone])[facility] (SBHLAB)[address] BLOOD GAS, VENOUSon 05-28-20 24 Base excess Calc (BldV) [Moles/Vol] -6.1000 mmol/L Low -3.0-3.0 [facility] Comment on above: Performed By: #### L AB79 ####Event Marketing Intern: LESLEE HERNANDEZ ([phone])[facility] (SBHLAB)[address] CO2 [Moles/Vol] 19.6 mmol/L Low 23.0-30.0 [facility] Comment on above: Performed By: #### L AB79 ####Event Marketing Intern: LESLEE HERNANDEZ ([phone])[facility] (SBHLAB)[address] HCO3 (Bld) [Moles/Vol] 18.5 mmol/L Low 21.0-30.0 [facility] Comment on above: Performed By: #### L AB79 ####Event Marketing Intern: LESLEE HERNANDEZ ([phone])[facility] ([facility])[address] Hemoglobin (Bld) [Mass/Vol] 16.6 g/dL Normal Screen only [facility] Comment on above: Performed By: #### L AB79 ####Event Marketing Intern: LESLEE HERNANDEZ ([phone])[facility] (SBHLAB)[address] OXYGEN (MM HG) IN VENOUS BLOOD 37.0 mm Hg Normal [facility] Comment on above: Performed By: #### L AB79 ####Event Marketing Intern: LESLEE HERNANDEZ ([id number])[facility] (SBHLAB)[address] OXYGEN SATURATION (%) IN VENOUS BLOOD 62.6 % Normal [facility] Comment on above: Performed By: #### L AB79 ####Event Marketing Intern: LESLEE HERNANDEZ ([id number])[facility] (SBHLAB)[address] [place] [address] [place] PCO2, JAZ 34.6 mm Hg Low 38.0-56.0 [facility] Comment on above: Performed By: #### L AB79 ####Event Marketing Intern: LESLEE HERNANDEZ ([id number])[facility] [place] [address] PH VENOUS 7.347 Normal 7.320-7.420 [facility] Comment on above: Performed By: #### L AB79 ####Event Marketing Intern: LESLEE HERNANDEZ ([id number])[facility] (SBAB)[address] SOURCE OF OXYGEN Room Air Normal [facility] Comment on above: Result Comment: ALEJANDRO Aleman [...] A SYRINGE. Performed By: #### L AB79 ####Event Marketing Intern: LESLEE HERNANDEZ ([phone])[facility])[address] [place] [address] Basic metabolic 1998 panelon 05-28-2024 Anion gap [Moles/Vol] 10 mmol/L 3 - 13 mmol/L [facility] Calcium [Mass/Vol] 8.3 mg/dL Low 8.4 - 10. 4 mg/dL [facility] Chloride [Moles/Vol] 116 mmol/L High 98 - 10 7 mmol/L [facility] CO2 [Moles/Vol] 14 mmol/L Low 22 - 30 mmol/L [facility] Creatinine [Mass/Vol] 1.74 mg/dL High 0.66 - 1.25 mg/dL [facility] GFR/1.73 sq M.predicted (S/P/Bld) [Vol rate/Area] 48.4 mL/min Low - PINF [facility] Comment on above: Calculation based on the Chronic Kidney Disease Epidemiology Collaboration (CKD-EPI) equation refit without adjustment for race Glucose [Mass/Vol] 96 mg/dL 70 - 100 mg/dL [facility] Interpretation and review of laboratory results Abnormal [facility] Potassium [Moles/Vol] 4.6 mmol/L 3.5 - 5.1 mmol/L [facility] Sodium [Moles/Vol] 139 mmol/L 135 - 145 mmol/L [facility] Urea nitrogen [Mass/Vol] 34 mg/dL High 9 - 20 mg/dL [facility] Anion gap [Moles/Vol] 8 mmol/L 3 - 13 mmol/L [facility] Calcium [Mass/Vol] 9.1 mg/dL 8.4 - 10. 4 mg/dL [facility] Chloride [Moles/Vol] 114 mmol/L High 98 - 10 7 mmol/L [facility] CO2 [Moles/Vol] 19 mmol/L Low 22 - 30 mmol/L [facility] Creatinine [Mass/Vol] 2.06 mg/dL High 0.66 - 1.25 mg/dL [facility] GFR/1.73 sq M.predicted (S/P/Bld) [Vol rate/Area] 39.5 mL/min Low - PINF [facility] Comment on above: Calculation based on the Chronic Kidney Disease Epidemiology Collaboration (CKD-EPI) equation refit without adjustment for race Glucose [Mass/Vol] 120 mg/dL High 70 - 100 mg/dL [facility] Potassium [Moles/Vol] 4.6 mmol/L 3.5 - 5.1 mmol/L [facility] Sodium [Moles/Vol] 141 mmol/L 135 - 145 mmol/L [facility] Urea nitrogen [Mass/Vol] 38 mg/dL High 9 - 20 mg/dL [facility] CBC W Auto Differential pane l (Bld)on 05-28-2024 Basophils (Bld) [#/Vol] 0 10*3/uL 0.0 - 0.2 10*3/uL [facility] Basophils/100 WBC (Bld) 0.2 % 0.0 - 2.0 % [facility] Eosinophils (Bld) [#/Vol] 0 10*3/uL 0.0 - 0.5 10*3/uL [facility] Eosinophils/100 WBC (Bld) 0.4 % 0.0 - 6.0 % [facility] Erythrocyte distribution width (RBC) [Ratio] 13.9 % 11.5 - 15.0 % [facility] Hematocrit (Bld) [Volume fraction] 48.3 % 40.0 - 52.0 % [facility] Hemoglobin (Bld) [Mass/Vol] 15.7 g/dL 13.0 - 18.0 g/dL [facility] Immature granulocytes (Bld) [#/Vol] 0 10*3/uL NINF - 0.1 10*3/uL [facility] Immature granulocytes/100 WBC (Bld) 0.2 % 0.0 - 2.0 % [facility] Interpretation and review of laboratory results Normal [facility] Lymphocytes (Bld) [#/Vol] 1.7 10*3/uL 1.0 - 4.3 10*3/uL [facility] Lymphocytes/100 WBC (Bld) 30.9 % 15.0 - 45.0 % [facility] MCH (RBC) [Entitic mass] 31.9 pg 26.0 - 34.0 pg [facility] MCHC (RBC) [Mass/Vol] 32.5 % 30.5 - 36.0 % [facility] MCV (RBC) [Entitic vol] 98.2 fL 77.0 - 99.0 fL [facility] Monocytes (Bld) [#/Vol] 0.3 10*3/uL 0.0 - 0.9 10*3/uL [facility] Monocytes/100 WBC (Bld) 5.7 % 5.0 - 13.0 % [facility] Neutrophils (Bld) [#/Vol] 3.4 10*3/uL 1.8 - 7.5 10*3/uL [facility] Neutrophils/100 WBC (Bld) 62.6 % 38.0 - 82.0 % [facility] Nucleated RBC/100 WBC (Bld) [Ratio] 0 % [facility] Platelet mean volume (Bld) [Entitic vol] 10.5 fL 9.0 - 12.7 fL [facility] Platelets (Bld) [#/Vol] 205 10*3/uL 140 - 440 10*3/uL [facility] RBC (Bld) [#/Vol] 4.92 10*6/uL 4.40 - 5.9 0 10*6/uL [facility] WBC (Bld) [#/Vol] 5.4 10*3/uL 3.6 - 10.7 10*3/uL [facility] CBC WITH AUTO DIFFERENTIALon 05-28-2024 Basophils (Bld) [#/Vol] 0.0 10*3/uL Normal 0.0-0.2 [facility] Comment on above: Performed By: #### L [id number] ####Event Marketing Intern: LESLEE TURKTYRONE ([id number])[facility] ([facility])[address] Basophils/100 WBC (Bld) 0.2 % Normal 0.0-2.0 [facility] Comment on above: Performed By: #### L [id number] ####Event Marketing Intern: LESLEE HERNANDEZ ([id number])[facility] ([facility])[address] Eosinophils (Bld) [#/Vol] 0.0 10*3/uL Normal 0.0-0.5 [facility] Comment on above: Performed By: #### L [id number] ####Event Marketing Intern: LESLEE TURKTYRONE ([phone])[facility] (SBHLAB)[address] Eosinophils/100 WBC (Bld) 0.4 % Normal 0.0-6.0 [facility] Comment on above: Performed By: #### L [id number] ####Event Marketing Intern: LESLEE TURKTYRONE ([phone])[facility] (SBHLAB)[address] Erythrocyte distribution width (RBC) [Ratio] 13.9 % Normal 11.5-15.0 [facility] Comment on above: Performed By: #### L [id number] ####Event Marketing Intern: LESLEE TURKTYRONE ([phone])[facility] (SBHLAB)[address] Hematocrit (Bld) [Volume fraction] 48.3 % Normal 40.0-52.0 [facility] Comment on above: Performed By: #### L [id number] ####Event Marketing Intern: LESLEE HERNANDEZ ([id number])[facility] (SBHLAB)[address] Hemoglobin (Bld) [Mass/Vol] 15.7 g/dL Normal 13.0-18.0 [facility] Comment on above: Performed By: #### L [id number] ####Event Marketing Intern: LESLEE HERNANDEZ ([phone])[facility] [place] ([facility] IMMATURE GRANS % 0.2 % Normal 0.0-2.0 [facility] Comment on above: Performed By: #### L [id number] ####Event Marketing Intern: LESLEE HERNANDEZ ([phone])[facility] [place] ([facility])[address] IMMATURE GRANS ABSOLUTE 0.0 10*3/uL Normal <0.1 [facility] Comment on above: Performed By: #### L [id number] ####Event Marketing Intern: LESLEE HERNANDEZ ([phone])[facility] [place] ([facility])[address] Lymphocytes (Bld) [#/Vol] 1.7 10*3/uL Normal 1.0-4.3 [facility] Comment on above: Performed By: #### L [id number] ####Event Marketing Intern: LESLEE HERNANDEZ ([phone])[facility] [place] ([facility])[address] Lymphocytes/100 WBC (Bld) 30.9 % Normal 15.0-45.0 [facility] Comment on above: Performed By: #### L [id number] ####Event Marketing Intern: LESLEE HERNANDEZ ([phone])[facility] [place] ([facility])[address] MCH (RBC) [Entitic mass] 31.9 pg Normal 26.0-34.0 [facility] Comment on above: Performed By: #### L [id number] ####Event Marketing Intern: LESLEE HERNANDEZ ([phone])[facility] (SBHLAB)[address] MCHC 32.5 % Normal 30.5-36.0 [facility] Comment on above: Performed By: #### L [id number] ####Event Marketing Intern: LESLEE MCNEILLNinoskaTYRONE ([phone])[facility] (SBHLAB)[address] MCV (RBC) [Entitic vol] 98.2 fL Normal 77.0-99.0 [facility] Comment on above: Performed By: #### L [id number] ####Event Marketing Intern: LESLEE MARY ([phone])[facility] [place] ([facility])[address] Monocytes (Bld) [#/Vol] 0.3 10*3/uL Normal 0.0-0.9 [facility] Comment on above: Performed By: #### L [id number] ####Event Marketing Intern: LESLEE TURKTYRONE ([phone])[facility] [place] ([facility])[address] Monocytes/100 WBC (Bld) 5.7 % Normal 5.0-13.0 [facility] Comment on above: Performed By: #### L [id number] ####Event Marketing Intern: LESLEE TURKTYRONE ([phone])[facility] (SBHLAB)[address] [place] [address] NEUTROPHILS ABSOLUTE 3.4 10*3/uL Normal 1.8-7.5 [facility] Comment on above: Performed By: #### L [id number] ####Event Marketing Intern: LESLEE MCNEILLRAMON ([phone])[facility] [place] ([facility])[address] Neutrophils/100 WBC (Bld) 62.6 % Normal 38.0-82.0 [facility] Comment on above: Performed By: #### L [id number] ####Event Marketing Intern: LESLEE TURKTYRONE ([phone])[facility] [place] ([facility])[address] NRBC 0.0 /100 WBCs Normal 0.0-2.0 [facility] Comment on above: Performed By: #### L [id number] ####Event Marketing Intern: LESLEE HERNANDEZ ([phone])[facility] [place] (SBHLAB)[address] Platelet mean volume (Bld) [Entitic vol] 10.5 fL Normal 9.0-12.7 [facility] Comment on above: Performed By: #### L [id number] ####Event Marketing Intern: LESLEE HERNANDEZ ([id number])[facility] ([facility])[address] Platelets (Bld) [#/Vol] 205 10*3/uL Normal 140-440 [facility] Comment on above: Performed By: #### L [id number] ####Event Marketing Intern: LESLEE HERNANDEZ ([phone])[facility] ([facility])[address] RBC (Bld) [#/Vol] 4.92 10*6/uL Normal 4.40-5.90 [facility] Comment on above: Performed By: #### L [id number] ####Event Marketing Intern: LESLEE HERNANDEZ ([phone])[facility] (SB[facility])[address] [place] [address] WBC (Bld) [#/Vol] 5.4 10*3/uL Normal 3.6-10.7 [facility] Comment on above: Performed By: #### L [id number] ####Event Marketing Intern: LESLEE HERNANDEZ ([phone])[facility] (SB[facility])[address] [place] [address] [place] CHLORIDE, URINE, RANDOMon CHLORIDE, UR RANDOM 45 mmol/L Normal 19-209 [facility] Comment on above: Performed By: #### L AB444, PBV466, GDN190, ARY396 ####Event Marketing Intern: LESLEE HERNANDEZ ([phone])[facility] [place] ([facility])[address] COMPLETE URINALYSISon 2023 AMORPHOUS CRYSTALS (#/HPF) IN URINE Few Abnormal Negative [facility] Comment on above: Performed By: #### L [id number] ####Event Marketing Intern: LESLEE HERNANDEZ ([phone])[facility] [place] ([facility])[address] BACTERIA (#/HPF) IN URINE Few Abnormal Negative [facility] Comment on above: Performed By: #### L [id number] ####Event Marketing Intern: LESLEE HERNANDEZ ([phone])[facility] [place] ([facility])[address] BILIRUBIN, TOTAL PRESENCE IN URINE Negative Normal Negative [facility] Comment on above: Performed By: #### L [id number] ####Event Marketing Intern: LESLEE HERNANDEZ ([phone])[facility] ([facility])[address] Clarity (U) Clear Normal Clear [facility] Comment on above: Performed By: #### L [id number] ####Event Marketing Intern: LESLEE HERNANDEZ ([phone])[facility] [place] ([facility])[address] Color (U) Yellow Normal Lt. Yellow [facility] Comment on above: Performed By: #### L [id number] ####Event Marketing Intern: LESLEE HERNANDEZ ([phone])[facility] (SBHLAB)[address] GLUCOSE (MG/DL) IN URINE Normal Normal Normal (<70) [facility] Comment on above: Performed By: #### L [id number] ####Event Marketing Intern: LESLEE HERNANDEZ ([phone])[facility] (SBHLAB)[address] GRANULAR CASTS (#/LPF) IN URINE 0-2 Abnormal Negative [facility] Comment on above: Performed By: #### L [id number] ####Event Marketing Intern: LESLEE TURKTYRONE ([phone])[facility] [place] ([facility])[address] HEMOGLOBIN PRESENCE IN URINE 0.03 mg/dL Abnormal Negative [facility] Comment on above: Performed By: #### L [id number] ####Event Marketing Intern: LESLEE MCNEILLRAMON ([phone])[facility] [place] ([facility])[address] [place] [address] [place] HYALINE CASTS (#/LPF) IN URINE SEDIMENT BY MICROSCOPY 3-5 Abnormal Negative [facility] Comment on above: Performed By: #### L [id number] ####Event Marketing Intern: LESLEE MCNEILLRAMON ([phone])[facility] [place] ([facility])[address] Ketones Ql (U) Trace Abnormal Negative [facility] Comment on above: Performed By: #### L [id number] ####Event Marketing Intern: LESLEE TURKTYRONE ([phone])[facility] (HLAB)[address] LEUKOCYTE ESTERASE PRESENCE IN URINE BY TEST STRIP Negative Normal Negative [facility] Comment on above: Performed By: #### L [id number] ####Event Marketing Intern: LESLEE TURKTYRONE ([phone])[facility] [place] ([facility])[address] [place] [address] [place] MUCUS (#/LPF) IN URINE SEDIMENT Moderate Abnormal Negative [facility] Comment on above: Performed By: #### L [id number] ####Event Marketing Intern: LESLEE MCNEILLRAMON ([phone])[facility] [place] ([facility])[address] [place] [address] [place] NITRITE PRESENCE IN URINE Negative Normal Negative [facility] Comment on above: Performed By: #### L [id number] ####Event Marketing Intern: LESLEE TURKTYRONE ([id number])[facility] [place] ([facility])[address] [place] [address] [place] NON-SQUAMOUS EPITHELIAL (#/HPF) IN URINE 0-2 Abnormal Negative [facility] Comment on above: Performed By: #### L [id number] ####Event Marketing Intern: LESLEE HERNANDEZ ([phone])[facility] [place] [address] pH (U) 5.5 [pH] Normal 5.0-8.0 [facility] Comment on above: Performed By: #### L [id number] ####Event Marketing Intern: LESLEE HERNANDEZ ([phone])[facility] [place] [address] Protein (U) [Mass/Vol] 70 mg/dL Abnormal Negative [facility] Comment on above: Performed By: #### L [id number] ####Event Marketing Intern: LESLEE HERNANDEZ ([phone])[facility] ([facility])[address] [place] [address] RBC (#/HPF) IN URINE SEDIMENT 0-2 Normal 0-2 [facility] Comment on above: Performed By: #### L [id number] ####Event Marketing Intern: LESLEE HERNANDEZ ([phone])[facility] ([facility])[address] [place] [address] Specific gravity (U) [Rel density] 1.032 High 1.005-1.030 [facility] Comment on above: Performed By: #### L [id number] ####Event Marketing Intern: LESLEE HERNANDEZ ([id number])[facility])[address] [place] [address] SQUAMOUS EPITHELIAL CELLS (#/HPF) IN URINE SEDIMENT 0-2 Normal 3-5 [facility] Comment on above: Performed By: #### L [id number] ####Event Marketing Intern: LESLEE HERNANDEZ ([phone])[facility])[address] [place] [address] UROBILINOGEN (MG/DL) IN URINE Normal Normal Normal (0-1) [facility] Comment on above: Performed By: #### L [id number] ####Event Marketing Intern: LESLEE HERNANDEZ ([phone])[facility] [place] (SBHLAB)[address] WBC (LEUKOCYTE) (#/HPF) IN URINE SEDIMENT 3-5 Normal 0-5 [facility] Comment on above: Performed By: #### L [id number] ####Event Marketing Intern: LESLEE MCNEILLRAMON ([phone])[facility] [place] (SBHLAB)[address] Consulton 05-28-2024 Consult Normal [facility] Consult Normal [facility] ECG 12-LEADon 05-28-2024 ECG 12-LEAD Normal [facility] ED Nursing Noteon 05-28-2024 ED Nursing Note Normal [facility] ED Provider Noteon ED Provider Note Normal [facility] HEPATIC FUNCTION PANELon Albumin [Mass/Vol] 3.8 g/dL Normal 3.5-5.0 [facility] Comment on above: Performed By: #### L [id number], LAB20, LAB15, EOP830, NVG554, [id number] ####Event Marketing Intern: LESLEE HERNANDEZ ([phone])[facility] [place] (SBHLAB)[address] ALP [Catalytic activity/Vol] 104 U/L Normal 38-126 [facility] Comment on above: Performed By: #### L [id number], LAB20, LAB15, XMK975, HMM751, MXQ573 ####Event Marketing Intern: LESLEE HERNANDEZ ([phone])[facility] [place] (SBHLAB)[address] ALT [Catalytic activity/Vol] 129 U/L High 0-49 [facility] Comment on above: Performed By: #### L [id number], LAB20, LAB15, YEX743, WNL427, XUC151 ####Event Marketing Intern: LESLEE HERNANDEZ ([phone])[facility] [place] (SBHLAB)[address] AST [Catalytic activity/Vol] 48 U/L High 15-46 [facility] Comment on above: Performed By: #### L [id number], LAB20, LAB15, YFN753, YUP597, BZI966 ####Event Marketing Intern: LESLEE HERNANDEZ ([id number])[facility])[address] Bilirubin [Mass/Vol] 1.8 mg/dL High 0.2-1.3 [facility] Comment on above: Performed By: #### L [id number], LAB20, LAB15, SAJ214, NEC037, UQA118 ####Event Marketing Intern: LESLEE HERNANDEZ ([id number])[facility] ([facility])[address] Bilirubin.indirect [Mass/Vol] 0.0 mg/dL Normal 0.0-0.3 [facility] Comment on above: Performed By: #### L [id number], LAB20, LAB15, VYF125, PKI185, PQB283 ####Event Marketing Intern: LESLEE HERNANDEZ ([phone])[facility] ([facility])[address] [place] [address] Protein [Mass/Vol] 6.8 g/dL Normal 6.3-8.2 [facility] Comment on above: Performed By: #### L [id number], LAB20, LAB15, JZM175, QWE983, YZH877 ####Event Marketing Intern: LESLEE HERNANDEZ ([phone])[facility] ([facility])[address] [place] [address] Hepatic function 2000 panelo n 05-28-2024 Albumin [Mass/Vol] 3.8 g/dL 3.5 - 5.0 g/dL [facility] ALP [Catalytic activity/Vol] 104 U/L 38 - 126 U/L [facility] ALT [Catalytic activity/Vol] 129 U/L High 0 - 49 U/L [facility] AST [Catalytic activity/Vol] 48 U/L High 15 - 46 U/L [facility] Bilirubin [Mass/Vol] 1.8 mg/dL High 0.2 - 1 .3 mg/dL [facility] Bilirubin.conjugated [Mass/Vol] 0 mg/dL 0.0 - 0.3 mg/dL [facility] Protein [Mass/Vol] 6.8 g/dL 6.3 - 8.2 g/dL [facility] Laboratory - Chemistry and C hemistry - challengeon 05-28-2024 Chloride (U) [Moles/Vol] 45 mmol/L 19 - 209 mmol/L [facility] Sodium (24H U) [Mass/Vol] 74 mmol/L 30 - 90 mmol/L [facility] Troponin I.cardiac [Mass/Vol] 0.037 ng/mL High [facility] - 0.034 ng/mL [facility] TSH Qn 0.82 m[IU]/L [facility] Troponin I.cardiac [Mass/Vol] 0.051 ng/mL High [facility] - 0.034 ng/mL [facility] Magnesium [Mass/Vol] 2.4 mg/dL High 1.6 - 2 .3 mg/dL [facility] Glucose [Mass/Vol] 120 mg/dL High 70 - 100 mg/dL [facility] Laboratory - Chemistry and C hemistry - challengeOrdered By: Susan Patton on 05-28-2024 Base excess Calc (BldV) [Moles/Vol] -6.1000 mmol/L Low -3.0 - 3.0 mmol/L [facility] CO2 (BldV) [Partial pressure] 34.6 mm[Hg] Low [facility] CO2 [Moles/Vol] 19.6 mmol/L Low 23.0 - 30.0 mmol/L [facility] HCO3 (Bld) [Moles/Vol] 18.5 mmol/L Low 21.0 - 30.0 mmol/L [facility] Oxygen (BldV) [Partial pressure] 37 mm[Hg] mm Hg [facility] pH (BldV) 7.347 [pH] 7.320 - 7.420 [facility] Laboratory - Hematology and Cell countsOrdered By: Susan Patton on 05-28-2024 Hemoglobin (Bld) [Mass/Vol] 16.6 g/dL Screen only [facility] Laboratory - Urinalysison Protein (U) [Mass/Vol] 61 mg/dL High 0 - 12 mg/dL [facility] MAGNESIUMon 05-28-2024 Magnesium [Mass/Vol] 2.4 mg/dL High 1.6-2.3 [facility] Comment on above: Performed By: #### L [id number], LAB20, LAB15, DCR830, MYU403, DSL492 ####Event Marketing Intern: LESLEE HERNANDEZ ([phone])[facility] ([facility])[address] [place] [address] MICROALBUMIN / CREATININE UR INE RATIOon 05-28-2024 CREATININE, URINE 293.8 mg/dL Normal No Range [facility] Comment on above: Performed By: #### L AB444, WFG243, IXS655, GQY359 ####Event Marketing Intern: LESLEE HERNANDEZ ([phone])[facility] ([facility])[address] [place] [address] MICROALBUMIN, URINE 324.5 mg/L High 0.0-29.9 [facility] Comment on above: Result Comment: ALEJANDRO Aleman COMMENTS:Microalbumin concentrations <30 are considered normal, 30-300 are considered microalbuminuria (or risk of diabetic nephropathy), and >300 are considered clinical albuminuria (clinical nephropathy).Diabetes Care,27, Supplement 1, S79-79, 2003 Performed By: #### L AB444, LRR286, SIY583, VHZ967 ####Event Marketing Intern: LESLEE HERNANDEZ ([phone])[facility] ([facility])[address] [place] [address] MICROALBUMIN/CREATININ E RATIO 110.4 mg/g High 0.0-29.9 [facility] Comment on above: Performed By: #### L AB444, MBY335, KPK372, YBM961 ####Event Marketing Intern: LESLEE HERNANDEZ ([phone])[facility] ([facility])[address] [place] [address] Microalbumin/Creatinine rati o panel (U)on 05-28-2024 Albumin DL <= 20 mg/L (U) [Mass/Vol] 324.5 mg/L High 0.0 - 29.9 mg/L [facility] Albumin/Creatinine DL <= 20 mg/L (U) [Mass ratio] 110.4 mg/g High 0.0 - 29.9 mg/g [facility] CREATININE, URINE 293.8 mg/dL No Range [facility] Interpretation and review of laboratory results Abnormal [facility] Microalbumin concentrations <30 are considered normal, 30-300 are considered microalbuminuria (or risk of diabetic nephropathy), and >300 are considered clinical albuminuria (clinical nephropathy). Diabetes Care,27, Supplement 1, S70-83, 2004 [facility] NT PRO BNPon 05-28-2024 Natriuretic peptide B (Bld) [Mass/Vol] 50924 pg/mL High <20-100 [facility] Comment on above: Performed By: #### L [id number], LAB20, LAB15, FRR893, MFF520, VGY065 ####Event Marketing Intern: LESLEE HERNANDEZ ([phone])[facility] (SB[facility])[address] [place] [address] Natriuretic peptide B [Mass/ Vol]on 05-28-2024 Natriuretic peptide B (Bld) [Mass/Vol] 44296 pg/mL High <20 - 100 [facility] No Panel Informationon 05-28 Interpretation and review of laboratory results Normal [facility] Interpretation and review of laboratory results Abnormal [facility] Interpretation and review of laboratory results Abnormal [facility] P [place] 54 degrees [facility] NM Interval 133 ms [facility] QRS [place] -28 degrees [facility] QRSD Interval 94 ms [facility] Interval 329 ms [facility] QTC Interval 473 ms [facility] T Wave [place] 103 degrees [facility] Izaiah Martins MD - 05/28/2024 IMPRESSION: [...] Interpretation and review of laboratory results Abnormal [facility] Performed by: [facility], [address] [place] [address] CLIA ID: [id number] [facility] No Panel InformationOrdered By: Susan Patton on 05-28-2024 Interpretation and review of laboratory results Abnormal [facility] Source Of Oxygen Room Air [facility] Assessment of oxygenation is best done [...] Protein (U) [Mass/Vol] 61 mg/dL High 0-12 [facility] Comment on above: Performed By: #### L AB444, QQP831, GAL730, GHB961 ####Event Marketing Intern: LESLEE HERNANDEZ ([phone])[facility] ([facility])[address] [place] [address] SODIUM, URINE, RANDOMon 05-01 Sodium (U) [Moles/Vol] 74 mmol/L Normal 30-90 [facility] Comment on above: Performed By: #### L AB444, DJQ939, SNF311, VOJ075 ####Event Marketing Intern: LESLEE HERNANDEZ ([phone])[facility] ([facility])[address] [place] [address] THYROID STIMULATING HORMONEo n 05-28-2024 THYROID STIMULATING HORMONE 0.820 uIU/mL Normal 0.465-4.680 [facility] Comment on above: Performed By: #### L [id number], LAB20, LAB15, FXE587, KXX917, RDM915 ####Event Marketing Intern: LESLEE HERNANDEZ ([phone])[facility] ([facility])[address] [place] [address] [place] TROPONIN Ion 05-28-2024 Troponin I.cardiac [Mass/Vol] 0.037 ng/mL High <0.034 [facility] Comment on above: Result Comment: ALEJANDRO Aleman COMMENTS:Patients with high levels of Biotin oral intake (ie >5 mg/day) may have falsely decreased Troponin levels. Performed By: #### L AB15, JPG833 ####Event Marketing Intern: LESLEE HERNANDEZ ([phone])[facility] ([facility])[address] TROPONIN, WITH SERIAL REFLEX on 05-28-2024 Troponin I.cardiac [Mass/Vol] 0.051 ng/mL High <0.034 [facility] Comment on above: Result Comment: ALEJANDRO Aleman COMMENTS:Patients with high levels of Biotin oral intake (ie >5 mg/day) may have falsely decreased Troponin levels. Performed By: #### L [id number], LAB20, LAB15, QDB655, JBB726, OXM512 ####Event Marketing Intern: LESLEE HERNANDEZ ([phone])[facility] ([facility])[address] TSH Qnon 05-28-2024 Interpretation and review of laboratory results Normal [facility] Troponin I.cardiac [Mass/Vol ]on 05-28-2024 Interpretation and review of laboratory results Abnormal [facility] Patients with high levels of Biotin oral intake (ie >5 mg/day) may have falsely decreased Troponin levels. [facility] Patients with high levels of Biotin oral intake (ie >5 mg/day) may have falsely decreased Troponin levels. [facility] Urinalysis complete panel (U )Ordered By: Jessica Santoro on 05-28-2024 Amorphous Crystals, Urine Few Abnormal Negative /HPF [facility] Bacteria LM.HPF (Urine sed) [#/Area] Few Abnormal Negative /HPF [facility] Bilirubin Ql (U) Negative Negative mg/dL [facility] Clarity (U) Clear Clear [facility] Color (U) Yellow Lt. Yellow [facility] Epithelial cells.squamous LM.HPF (Urine sed) [#/Area] 0-2 [facility] Glucose Ql (U) Normal Normal (<70) mg/dL [facility] Granular casts LM.HPF (Urine sed) [#/Area] 0-2 Abnormal Negative /LPF [facility] Hemoglobin Ql (U) 0.03 mg/dL [facility] Hyaline casts Auto (Urine sed) [#/Area] 3-5 Abnormal Negative /LPF [facility] Interpretation and review of laboratory results Abnormal [facility] Ketones (U) [Mass/Vol] Trace Abnormal Negat dai mg/dL [facility] Leukocyte esterase Test strip Ql (U) Negative Negative Nicky/uL [facility] Mucus LM.HPF (Urine sed) [#/Area] Moderate Abnormal Negative /LPF [facility] Nitrite Ql (U) Negative Negative [facility] th Non-Squamous Epithalial Cells, Urine 0-2 Abnormal Negative /HPF [facility] pH (U) 5.5 [pH] 5.0 - 8.0 pH [facility] Protein (U) [Mass/Vol] 70 mg/dL Abnormal Negative [facility] RBC LM.HPF (Urine sed) [#/Area] 0-2 [facility] Specific gravity (U) [Rel density] 1.032 High 1.005 - 1.030 [facility] Urobilinogen (U) [Mass/Vol] Normal Normal (0-1) mg/dL [facility] WBC LM.HPF (Urine sed) [#/Area] 3-5 [facility] Vital signson 05-28-2024 Heart rate 124 /min bpm [facility] Vital signsOrdered By: Radu Patton on 05-28-2024 Oxygen saturation in Venous blood 62.6 % [facility] XR Chest Single viewon 05-28 FINDINGS AND IMPRESSION: SUPPORT DEVICES: None OSSEOUS STRUCTURES: Degenerative changes in the thoracic spine. HEART AND MEDIASTINUM: The cardiac silhouette is enlarged. The mediastinum is unremarkable. LUNGS AND PLEURA: The lungs are clear. No sizable pleural effusion. Report Dictated on Electronically Signed By: Shane Galarza MD Electronically Signed Date/Time: 05/28/2024 8:23 AM [facility] [employer] [facility] Patient Name: CARLO MEDINA : 1980 Exam Date/Time: 05/28/2024 08:13 Procedure: XR CHEST 1 VIEW Ordering Provider: MARTINS KEVIN Reason For Exam: DYSPNEA CHEST CLINICAL INDICATION: dyspnea TECHNIQUE: AP portable chest COMPARISON: 04/28/24 [facility] Shane Galarza MD - 05/28/2024 [facility] Name[facility]LO MEDINA : 1980 [id number] Exam Date/Time: 05/28/2024 08:13 Procedure: XR CHEST [...] Electronically Signed Date/Time: 05/28/2024 8:23 AM EST [facility] Radiology Study observation (narrative) [facility] XR Chest Single viewOrdered By: Shane Galarza on 05-28-2024 [facility] Work Phone: 36on 05-05-2024 36 Normal [facility] 36on 04-30-2024 36 Normal [facility] 36 Normal [facility] ECG 12-LEADon 04-30-2024 ECG 12-LEAD IMPRESSION: Sinus tachycardia Probable left atrial enlargement Probable LVH with secondary repol abnrm Electronically Signed On 04-30-2024 12:14:37 EDT by Shannan Lima Normal [facility] 36on 04-29-2024 36 Normal [facility] 30on 04-28-2024 30 Normal [facility] [id number] 04-28-2024 [id number] Normal [facility] [id number] [facility] [id number] [facility] BASIC METABOLIC PANELon 10-3 Anion gap [Moles/Vol] 5 mmol/L Normal 3-13 [facility] Comment on above: Performed By: #### L [id number], [id number], [id number] ####Event Marketing Intern: NICOLE BOWERS ([id number])[facility] KAMALJIT RITTMAN (SWRLAB)[address] [place] [address] [place] Calcium [Mass/Vol] 9.0 mg/dL Normal 8.4-10.4 [facility] Comment on above: Performed By: #### Pedro AB15, [id number], [id number] ####Event Marketing Intern: NICOLE BOWERS ([phone])[facility] (SWRLAB)[address] [place] [address] [place] Chloride [Moles/Vol] 109 mmol/L High 98-107 [facility] Comment on above: Performed By: #### Pedro AB15, [id number], [id number] ####Event Marketing Intern: NICOLE BOWERS ([id number])[facility] RODRIGESKAMALJIT RITTMAN (SWRLAB)[address] [place] [address] [place] CO2 [Moles/Vol] 26 mmol/L Normal 22-30 [facility] Comment on above: Performed By: #### Pedro AB15, [id number], [id number] ####Event Marketing Intern: NICOLE BOWERS ([phone])[facility] MARI RITTMAN (SWRLAB)[address] [place] [address] [place] Creatinine [Mass/Vol] 1.58 mg/dL High 0.66-1.25 [facility] Comment on above: Performed By: #### Pedro AB15, [id number], [id number] ####Event Marketing Intern: NICOLE BOWERS ([phone])[facility] MARI RITTMAN (SWRLAB)[address] [place] [address] [place] GLOMERULAR FILTRATION RATE ML/MIN/1.73 SQ M.PREDICTED 54.3 mL/min/1.73m*2 Low >60.0 [facility] Comment on above: Result Comment: Calc ulation based on the Chronic Kidney Disease Epidemiology Collaboration (CKD-EPI) equation refit without adjustment for race Performed By: #### L AB15, [id number], [id number] ####Event Marketing Intern: NICOLE BOWERS ([id number])[facility] (SWRLAB)[address] [place] [address] [place] Glucose [Mass/Vol] 128 mg/dL High 70-100 [facility] Comment on above: Performed By: #### L AB15, [id number], [id number] ####Event Marketing Intern: NICOLE BOWERS ([phone])[facility] FLOREZTMAN (SWRLAB)[address] [place] [address] [place] Potassium [Moles/Vol] 4.2 mmol/L Normal 3.5-5.1 [facility] Comment on above: Performed By: #### L AB15, [id number], [id number] ####Event Marketing Intern: NICOLE BOWERS ([id number])[facility] FLOREZTMAN (SWRLAB)[address] Sodium [Moles/Vol] 140 mmol/L Normal 135-145 [facility] Comment on above: Performed By: #### Pedro AB15, [id number], [id number] ####Event Marketing Intern: NICOLE BOWERS ([id number])[facility] FLOREZTMAN (SWRLAB)[address] [place] [address] Urea nitrogen [Mass/Vol] 21 mg/dL High 9-20 [facility] Comment on above: Performed By: #### L AB15, [id number], [id number] ####Event Marketing Intern: NICOLE BOWERS ([id number])[facility] FLOREZTMAN (SWRLAB)[address] [place] [address] Bacteria identified Aer cx N om (Lower resp)on 04-28-2024 Gram Stain Result Many Epithelial cell s per low power field Abnormal [facility] Gram Stain Result Many Polymorphonuclear leukocytes per low power field Abnormal [facility] Gram Stain Result Positive Abnormal [facility] Gram Stain Result Smear contains >= 15 squamous cells per low power field, suggestive of poor quality. Culture not performed. Please re-collect if clinically indicated. Abnormal [facility] Interpretation and review of laboratory results Abnormal [facility] Basic metabolic 1998 panelon 04-28-2024 Anion gap [Moles/Vol] 5 mmol/L 3 - 13 mmol/L [facility] Calcium [Mass/Vol] 9 mg/dL 8.4 - 10. 4 mg/dL [facility] Chloride [Moles/Vol] 109 mmol/L High 98 - 10 7 mmol/L [facility] CO2 [Moles/Vol] 26 mmol/L 22 - 30 mmol/L [facility] Creatinine [Mass/Vol] 1.58 mg/dL High 0.66 - 1.25 mg/dL [facility] GFR/1.73 sq M.predicted (S/P/Bld) [Vol rate/Area] 54.3 mL/min Low - PINF [facility] Comment on above: Calculation based on the Chronic Kidney Disease Epidemiology Collaboration (CKD-EPI) equation refit without adjustment for race Glucose [Mass/Vol] 128 mg/dL High 70 - 100 mg/dL [facility] Interpretation and review of laboratory results Abnormal [facility] Potassium [Moles/Vol] 4.2 mmol/L 3.5 - 5.1 mmol/L [facility] Sodium [Moles/Vol] 140 mmol/L 135 - 145 mmol/L [facility] Urea nitrogen [Mass/Vol] 21 mg/dL High 9 - 20 mg/dL [facility] CBC W Auto Differential pane l (Bld)on 04-28-2024 Basophils (Bld) [#/Vol] 0 10*3/uL 0.0 - 0.2 10*3/uL [facility] Basophils/100 WBC (Bld) 0.2 % 0.0 - 2.0 % [facility] Eosinophils (Bld) [#/Vol] 0.1 10*3/uL 0.0 - 0.5 10*3/uL [facility] Eosinophils/100 WBC (Bld) 0.6 % 0.0 - 6.0 % [facility] Erythrocyte distribution width (RBC) [Ratio] 12 % 11.5 - 15.0 % [facility] Hematocrit (Bld) [Volume fraction] 36 % Low 40.0 - 52.0 % [facility] Hemoglobin (Bld) [Mass/Vol] 12.1 g/dL Low 13.0 - 18.0 g/dL [facility] Immature granulocytes (Bld) [#/Vol] 0 10*3/uL NINF - 0.1 10*3/uL [facility] Immature granulocytes/100 WBC (Bld) 0 % 0.0 - 2.0 % [facility] Interpretation and review of laboratory results Abnormal [facility] Lymphocytes (Bld) [#/Vol] 1.6 10*3/uL 1.0 - 4.3 10*3/uL [facility] Lymphocytes/100 WBC (Bld) 19.5 % 15.0 - 45.0 % [facility] MCH (RBC) [Entitic mass] 31.4 pg 26.0 - 34.0 pg [facility] MCHC (RBC) [Mass/Vol] 33.6 % 30.5 - 36.0 % [facility] MCV (RBC) [Entitic vol] 93.5 fL 77.0 - 99.0 fL [facility] Monocytes (Bld) [#/Vol] 0.6 10*3/uL 0.0 - 0.9 10*3/uL [facility] Monocytes/100 WBC (Bld) 7.6 % 5.0 - 13.0 % [facility] Neutrophils (Bld) [#/Vol] 5.8 10*3/uL 1.8 - 7.5 10*3/uL [facility] Neutrophils/100 WBC (Bld) 72.1 % 38.0 - 82.0 % [facility] Nucleated RBC/100 WBC (Bld) [Ratio] 0 % [facility] Platelet mean volume (Bld) [Entitic vol] 9 fL 9.0 - 12.7 fL [facility] Comment on above: MPV is a calculated measurement using platelet volume ratio Platelets (Bld) [#/Vol] 277 10*3/uL 140 - 440 10*3/uL [facility] RBC (Bld) [#/Vol] 3.85 10*6/uL Low 4.40 - 5.9 0 10*6/uL [facility] WBC (Bld) [#/Vol] 8 10*3/uL 3.6 - 10.7 10*3/uL [facility] CBC WITH AUTO DIFFERENTIALon 04-28-2024 Basophils (Bld) [#/Vol] 0.0 10*3/uL Normal 0.0-0.2 [facility] Comment on above: Performed By: #### L [id number] ####Event Marketing Intern: NICOLE BOWERS ([phone])[facility] FLOWERS (JOSELAB)[address] [place] [address] [place] Basophils/100 WBC (Bld) 0.2 % Normal 0.0-2.0 [facility] Comment on above: Performed By: #### L [id number] ####Event Marketing Intern: NICOLE BOWERS ([id number])[facility]TM[facility] (SWRLAB)[address] [place] [address] Eosinophils (Bld) [#/Vol] 0.1 10*3/uL Normal 0.0-0.5 [facility] Comment on above: Performed By: #### L [id number] ####Event Marketing Intern: NICOLE BOWERS ([id number])[facility] MARI [facility]ITTMAN (SWRLAB)[address] [place] [address] [place] Eosinophils/100 WBC (Bld) 0.6 % Normal 0.0-6.0 [facility] Comment on above: Performed By: #### L [id number] ####Event Marketing Intern: NICOLE BOWERS ([phone])[facility] MARI RITTMAN (SWRLAB)[address] [place] [address] Erythrocyte distribution width (RBC) [Ratio] 12.0 % Normal 11.5-15.0 [facility] Comment on above: Performed By: #### L [id number] ####Event Marketing Intern: NICOLE BOWERS ([id number])[facility] (SWRLAB)[address] [place] [address] Hematocrit (Bld) [Volume fraction] 36.0 % Low 40.0-52.0 [facility] Comment on above: Performed By: #### L [id number] ####Event Marketing Intern: NICOLE BOWERS ([id number])[facility] (SWRLAB)[address] [place] [address] Hemoglobin (Bld) [Mass/Vol] 12.1 g/dL Low 13.0-18.0 [facility] Comment on above: Performed By: #### L [id number] ####Event Marketing Intern: NICOLE BOWERS ([phone])[facility] MARI [facility]ITTMAN (SWRLAB)[address] [place] [address] IMMATURE GRANS % 0.0 % Normal 0.0-2.0 [facility] Comment on above: Performed By: #### L [id number] ####Event Marketing Intern: NICOLE BOWERS ([phone])[facility] MARI [facility]ITTMAN (SWRLAB)[address] [place] [address] IMMATURE GRANS ABSOLUTE 0.0 10*3/uL Normal <0.1 [facility] Comment on above: Performed By: #### L [id number] ####Event Marketing Intern: NICOLE BOWERS ([phone])[facility] MAR[facility]ITTMAN (SWRLAB)[address] [place] [address] Lymphocytes (Bld) [#/Vol] 1.6 10*3/uL Normal 1.0-4.3 [facility] Comment on above: Performed By: #### L [id number] ####Event Marketing Intern: NICOLE BOWERS ([phone])[facility] (SWRLAB)[address] [place] [address] Lymphocytes/100 WBC (Bld) 19.5 % Normal 15.0-45.0 [facility] Comment on above: Performed By: #### L [id number] ####Event Marketing Intern: NICOLE BOWERS ([phone])[facility] (SWRLAB)[address] [place] [address] MCH (RBC) [Entitic mass] 31.4 pg Normal 26.0-34.0 [facility] Comment on above: Performed By: #### L [id number] ####Event Marketing Intern: NICOLE BOWERS ([phone])[facility] (SWRLAB)[address] [place] [address] MCHC 33.6 % Normal 30.5-36.0 [facility] Comment on above: Performed By: #### L [id number] ####Event Marketing Intern: NICOLE BOWERS ([id number])[facility] (SWRLAB)[address] [place] [address] MCV (RBC) [Entitic vol] 93.5 fL Normal 77.0-99.0 [facility] Comment on above: Performed By: #### L [id number] ####Event Marketing Intern: NICOLE BOWERS ([id number])[facility] (SWRLAB)[address] [place] [address] Monocytes (Bld) [#/Vol] 0.6 10*3/uL Normal 0.0-0.9 [facility] Comment on above: Performed By: #### L [id number] ####Event Marketing Intern: NICOLE BOWERS ([id number])[facility] MAR[facility]ITTMAN (SWRLAB)[address] [place] [address] [place] Monocytes/100 WBC (Bld) 7.6 % Normal 5.0-13.0 [facility] Comment on above: Performed By: #### L [id number] ####Event Marketing Intern: NICOLE BOWERS ([id number])[facility] (SWRLAB)[address] [place] [address] [place] NEUTROPHILS ABSOLUTE 5.8 10*3/uL Normal 1.8-7.5 [facility] Comment on above: Performed By: #### L [id number] ####Event Marketing Intern: NICOLE BOWERS ([phone])[facility] (SWRLAB)[address] [place] [address] [place] Neutrophils/100 WBC (Bld) 72.1 % Normal 38.0-82.0 [facility] Comment on above: Performed By: #### L [id number] ####Event Marketing Intern: NICOLE BOWERS ([id number])[facility] (SWRLAB)[address] [place] [address] [place] NRBC 0.0 /100 WBCs Normal 0.0-2.0 [facility] Comment on above: Performed By: #### L [id number] ####Event Marketing Intern: NICOLE BOWERS ([id number])[facility] FLOREZTMAN (SWRLAB)[address] Platelet mean volume (Bld) [Entitic vol] 9.0 fL Normal 9.0-12.7 [facility] Comment on above: Result Comment: MPV is a calculated measurement using platelet volume ratio Performed By: #### L [id number] ####Event Marketing Intern: NICOLE BOWERS ([phone])[facility] MAR[facility]ITTMAN (SWRLAB)[address] Platelets (Bld) [#/Vol] 277 10*3/uL Normal 140-440 [facility] Comment on above: Performed By: #### L [id number] ####Event Marketing Intern: NICOLE BOWERS ([id number])[facility]TM[facility] (SWRLAB)[address] [place] [address] RBC (Bld) [#/Vol] 3.85 10*6/uL Low 4.40-5.90 [facility] Comment on above: Performed By: #### L [id number] ####Event Marketing Intern: NICOLE BOWERS ([phone])[facility]TM[facility] (SWRLAB)[address] [place] [address] WBC (Bld) [#/Vol] 8.0 10*3/uL Normal 3.6-10.7 [facility] Comment on above: Performed By: #### L [id number] ####Event Marketing Intern: NICOLE BOWERS ([id number])[facility]ITTM[facility] (SWRLAB)[address] [place] [address] CT CHEST ANGIOGRAM W AND/OR WO IV CONTRASTon 04-28-2024 CT CHEST ANGIOGRAM W AND/OR WO IV CONTRAST Normal [facility] CTA Chest vessels WO and W c ontrast Blossom 04-28-[address] scan of the chest for evidence of acute pulmonary embolism. 2. Cardiomegaly with pulmonary vascular congestion and trace bilateral pleural effusions with mild atelectatic changes right lung base Report Dictated on Electronically Signed By: Jose Raul Petersen MD Electronically Signed Date/Time: 04/28/2024 5:28 AM EDT [facility] Patient Name: CARLO MEDINA : 1980 [...] study, with images post-processed by myself on [employer] workstation, with 3D - volume rendered CT [...] subsegmental, peripheral emboli, but none are seen. [facility] Jose Raul Petersen MD - 04/28/2024 [...] study, with images post-processed by myself on [employer] workstation, with 3D - volume rendered CT [...] [facility] (narrative) [facility] Consulton 04-28-2024 Consult Normal [facility] Consult Normal [facility] D-DIMER,QUANTITATIVEon 04-28 D-DIMER, INNOVANCE 1.97 mg/L High <0.50 [facility] Comment on above: Result Comment: ALEJANDRO Aleman COMMENTS:Innovance D-Dimer values of <0.50 mg/L FEU can be used in combination with a pre-test probability model (e.g. Well's) to exclude pulmonary embolism (PE) disease, as well as an aid in the diagnosis of deep vein thrombosis (DVT). Performed By: #### L [id number] ####Event Marketing Intern: NICOLE BOWERS ([id number])[facility] LION[facility] (SWRLAB)[address] [place] [address] ECG 12-LEADon 04-28-2024 ECG 12-LEAD Normal [facility] ED Nursing Noteon 04-28-2024 ED Nursing Note Phoned [facility]U. Hand off report given. Normal [facility] ED Nursing Note Phoned [facility] ED. No answer. Normal [facility] ED Nursing Note Patient signed transfer papers and instructions given to patient and significant other. Patient traveling by private vehicle. IV wrapped in coban. Normal [facility] ED Nursing Note Normal [facility] ED Provider Noteon ED Provider Note Normal [facility] Fibrin D-dimer FEU (PPP) [Ma ss/Vol]on 04-28-2024 Interpretation and review of laboratory results Abnormal [facility] D-Dimer values of <0.50 mg/L FEU can [...] Detected ORDER COMMENTS: Methodology: real-time PCR Normal [facility] Comment on above: Performed By: #### L [id number] ####Event Marketing Intern: NICOLE BOWERS ([phone])[facility] (SWRLAB)[address] [place] [address] LEGIONELLA AND STREPTOCOCCUS URINE ANTIGENon 04-28-2024 LEGIONELLA AND STREPTOCOCCUS URINE ANTIGEN Normal [facility] Comment on above: Performed By: #### L [id number] ####Event Marketing Intern: NICOLE BOWERS ([id number])[facility] (SACLAB)[address] [place] [address] Laboratory - Chemistry and C hemistry - challengeon 04-28-2024 Procalcitonin [Mass/Vol] 0.04 ng/mL 0.00 - 0.09 ng/mL [facility] Troponin I.cardiac [Mass/Vol] 0.032 ng/mL NINF - 0.034 ng/mL [facility] Troponin I.cardiac [Mass/Vol] 0.025 ng/mL NINF - 0.034 ng/mL [facility] Troponin I.cardiac [Mass/Vol] 0.02 ng/mL NINF - 0.034 ng/mL [facility] Laboratory - Coagulationon 1 Fibrin D-dimer FEU (PPP) [Mass/Vol] 1.97 mg/L High NINF - 0.50 mg/L [facility] Laboratory - Microbiology an d Antimicrobial susceptibilityon 04-28-2024 Bacteria identified Aer cx Nom (Lower resp) Culture canceled due to poor specimen quality. Recollect if clinically indicated. [facility] FLUAV RNA DEENA+probe Ql (Resp) Not detected Not Detected [facility] FLUBV RNA DEENA+probe Ql (Resp) Not detected Not Detected [facility] RSV RNA DEENA+probe Ql (Resp) Not detected Not Detected [facility] SARS-CoV-2 (COVID-19) RNA DEENA+probe Ql (Resp) Not detected Not Detected [facility] SARS-CoV-2 (COVID-19) RNA DEENA+probe Ql (Unsp spec) Methodology: real-time, RT-PCR The SARS-CoV-2, Flu A/B, and RSV Combo assay is intended for in vitro diagnostic use under the FDA Emergency Use Authorization (EUA). This test has not been FDA cleared or approved. In compliance with this authorization, please visit www.fda.gov/media/142 962/download or www.fda.gov/media/414 574/download to access the applicable information sheets. [facility] NT PRO BNPon 04-28-2024 Natriuretic peptide B (Bld) [Mass/Vol] 58773 pg/mL High <20-100 [facility] Comment on above: Performed By: #### L [id number], [id number], [id number] ####Event Marketing Intern: NICOLE BOWERS ([id number])[facility] ([address] Natriuretic peptide B [Mass/ Vol]on 04-28-2024 Interpretation and review of laboratory results Abnormal [facility] Natriuretic peptide B (Bld) [Mass/Vol] 60245 pg/mL High <20 - 100 [facility] No Panel InformationOrdered By: Tracey Cruz on 04-28-2024 Interpretation and review of laboratory results Normal [facility] Legionella pneumophila Ag Not detected Not Detected [facility] Streptococcus pneumoniae Ag Not detected Not Detected [facility] Methodology: Lateral flow enzyme immunoassay This assay is approved for detection of antigens to Streptococcus pneumoniae and Legionella pneumophila serogroup 1; however, other L. pneumophila serogroups may also be detected. [facility] No Panel Informationon 04-28 [facility] P [place] 60 degrees [facility] NM Interval 151 ms [facility] QRS [place] -18 degrees [facility] QRSD Interval 97 ms [facility] QT Interval 365 ms [facility] QTC Interval 455 ms [facility] T Wave [place] 189 degrees [facility] EKG shows NSR, LAD, normal NM QRS and QTC intervals. LVH. ST depressions in I, AVL, II, III, AVF, V3-V6. No STEMI. No SVT. Previous EKG is unchanged. All ST segment changes are old. Electronically Signed On 04-28-2024 03:05:52 EDT by Juan Carlos Barros MD - 04/28/2024 IMPRESSION: EKG shows NSR, LAD, normal NM QRS and QTC intervals. LVH. ST depressions [...] of my ability at this time. Normal [facility] Nursing Note Notified Karrie JAMES CD U patient reported 2/10 chest pain, STAT EKG obtained. Karrie read EKG and stated it's okay, chronic findings. Administer nitroglycerin prn and morphine prn. Normal [facility] PROCALCITONIN TESTon 024 PROCALCITONIN 0.04 ng/mL Normal 0.00-0.09 [facility] Comment on above: Result Comment: ALEJANDRO Aleman COMMENTS:PCT <0.50 = Low risk of severe sepsis and/or septic shock.PCT >2.00 = High risk of severe sepsis and/or septic shock. Performed By: #### L [id number] ####Event Marketing Intern: NICOLE BOWERS ([phone])[facility] ([address] Procalcitonin [Mass/Vol]on Interpretation and review of laboratory results Normal [facility] PCT <0.50 = Low risk of severe sepsis and/or septic shock. PCT >2.00 = High risk of severe sepsis and/or septic shock. [facility] RESPIRATORY CULTURE AND STAI Non 04-28-2024 RESPIRATORY CULTURE AND STAIN Normal [facility] Comment on above: Performed By: #### L [id number] ####Event Marketing Intern: NICOLE BOWERS ([phone])[facility] (SACLAB)[address] [place] [address] RESPIRATORY PATHOGENS PANEL BY PCRon 04-28-2024 RESPIRATORY PATHOGENS PANEL BY PCR Normal [facility] Comment on above: Performed By: #### L [id number] ####Event Marketing Intern: NICOLE BOWERS ([phone])[facility] ([facility])[address] [place] [address] Respiratory pathogens DNA an d RNA panel DEENA+non-probe (Nph)on 04-28-2024 Adenovirus Not detected Not Detected [facility] B. pertussis DNA DEENA+probe Ql (Unsp spec) Not detected Not Detected [facility] Bordetella parapertussis Not detected Not Detected [facility] Chlamydia pneumoniae Not detected Not Detected [facility] Coronavirus 229E Not detected Not Detected [facility] Coronavirus HKU1 Not detected Not Detected [facility] Coronavirus NL63 Not detected Not Detected [facility] Coronavirus OC43 Not detected Not Detected [facility] FLUAV RNA DEENA+non-probe Ql (Nph) Not detected Not Detected [facility] FLUBV RNA DEENA+non-probe Ql (Nph) Not detected Not Detected [facility] Human Metapneumovirus Not detected Not Detected [facility] Human Rhinovirus/Enterovirus Not detected Not Detected [facility] Interpretation and review of laboratory results Normal [facility] Mycoplasma pneumoniae Not detected Not Detected [facility] Parainfluenza 1 Not detected Not Detected [facility] Parainfluenza 2 Not detected Not Detected [facility] Parainfluenza 3 Not detected Not Detected [facility] Parainfluenza 4 Not detected Not Detected [facility] Respiratory Syncytial Virus Not detected Not Detected [facility] SARS-CoV-2 (COVID-19) RNA DEENA+non-probe Ql (Nph) Not detected Not Detected [facility] Methodology: Multiplex PCR [facility] S. pyogenes DNA DEENA+probe No m (Unsp spec)on 04-28-2024 Group A Strep Screen Not detected Not Detected [facility] Interpretation and review of laboratory results Normal [facility] Methodology: real-time PCR [facility] SARS-COV-2, FLU A/B, AND RSV COMBOon 04-28-2024 SARS-CoV-2 (COVID-19) RNA DEENA+probe Ql (Unsp spec) Normal [facility] Comment on above: Performed By: #### L [id number] ####Event Marketing Intern: NICOLE BOWERS ([phone])[facility] [place] [address] SARS-CoV-2, Flu A/B, and RSV Comboon 04-28-2024 Interpretation and review of laboratory results Normal [facility] TROPONIN I, HIGH SENSITIVITY on 04-28-2024 Troponin I.cardiac [Mass/Vol] 0.032 ng/mL Normal <0.034 [facility] Comment on above: Result Comment: ALEJANDRO Aleman COMMENTS:Moderately Hemolyzed. Interpret TROPONIN I with caution.Patients with high levels of Biotin oral intake (ie >5 mg/day) may have falsely decreased Troponin levels. Performed By: #### L [id number] ####Event Marketing Intern: NICOLE BOWERS ([id number])[facility] Troponin I.cardiac [Mass/Vol] 0.025 ng/mL Normal <0.034 [facility] Comment on above: Result Comment: ALEJANDRO R COMMENTS:Patients with high levels of Biotin oral intake (ie >5 mg/day) may have falsely decreased Troponin levels. Performed By: #### L [id number] ####Event Marketing Intern: NICOLE BOWERS ([phone])[facility] (RLAB)[address] [place] [address] [place] TROPONIN, WITH SERIAL REFLEX on 04-28-2024 Troponin I.cardiac [Mass/Vol] 0.020 ng/mL Normal <0.034 [facility] Comment on above: Result Comment: ORDE R COMMENTS:Patients with high levels of Biotin oral intake (ie >5 mg/day) may have falsely decreased Troponin levels. Performed By: #### L AB15, [id number], [id number] ####Event Marketing Intern: NICOLE BOWERS ([id number])[facility] (SWRLAB)[address] [place] [address] Troponin I.cardiac [Mass/Vol ]on 04-28-2024 Interpretation and review of laboratory results Normal [facility] Moderately Hemolyzed . Interpret TROPONIN I with caution. Patients with high levels of Biotin oral intake (ie >5 mg/day) may have falsely decreased Troponin levels. [facility] Interpretation and review of laboratory results Normal [facility] Patients with high levels of Biotin oral intake (ie >5 mg/day) may have falsely decreased Troponin levels. [facility] Interpretation and review of laboratory results Normal [facility] Patients with high levels of Biotin oral intake (ie >5 mg/day) may have falsely decreased Troponin levels. [facility] Vital signson 04-28-2024 Heart rate 93 /min bpm [facility] XR Chest 2 Viewson Patient Name: [...] MD Electronically Signed Date/Time: 04/28/2024 3:53 AM [facility] Jose Raul [...] Electronically Signed Date/Time: 04/28/2024 3:53 AM EDT [facility] Radiology Study observation (narrative) [facility] XR Chest 2 ViewsOrdered By: Jose Raul Petersen on 04-28-2024 [facility] Work Phone: 36on 04-27-2024 36 Normal [facility] 36on 04-14-2024 36 LMOM requesting return call, gave [facility] phone number also Normal [facility] 36on 03-31-2024 36 Lmom return call, if no insurance yet may be seen at [facility] with Dr Conklin. Will give number [phone] if needed Normal [facility] 36on 03-16-2024 36 Will call back Normal [facility] 36on 03-08-2024 36 [facility] reached out to schedule Hospital Follow up appointment. [facility] offered assistance with financial assistance program until his Medicaid was active. Pt declined, stating he wants to wait until his Medicaid is active before scheduling a follow up. Normal [facility] 36 Normal [facility] BASIC METABOLIC PANELon 09 Anion gap [Moles/Vol] 12 mmol/L Normal 3-13 [facility] Comment on above: Performed By: #### L AB15, [id number] ####Event Marketing Intern: LESLEE HERNANDEZ ([id number])[facility] (SBHLAB)[address] Calcium [Mass/Vol] 9.4 mg/dL Normal 8.4-10.4 [facility] Comment on above: Performed By: #### L AB15, [id number] ####Event Marketing Intern: LESLEE HERNANDEZ ([id number])[facility] (SBHLAB)[address] Chloride [Moles/Vol] 104 mmol/L Normal 98-107 [facility] Comment on above: Performed By: #### L AB15, [id number] ####Event Marketing Intern: LESLEE HERNANDEZ ([phone])[facility] (SBHL[facility])[address] CO2 [Moles/Vol] 22 mmol/L Normal 22-30 [facility] Comment on above: Performed By: #### L AB15, [id number] ####Event Marketing Intern: LESLEE HERNANDEZ ([phone])[facility] (SBHLAB)[address] Creatinine [Mass/Vol] 1.74 mg/dL High 0.66-1.25 [facility] Comment on above: Performed By: #### L AB15, [id number] ####Event Marketing Intern: LESLEE HERNANDEZ ([id number])[facility] (SBHLAB)[address] GLOMERULAR FILTRATION RATE ML/MIN/1.73 SQ M.PREDICTED 48.4 mL/min/1.73m*2 Low >60.0 [facility] Comment on above: Result Comment: Calc ulation based on the Chronic Kidney Disease Epidemiology Collaboration (CKD-EPI) equation refit without adjustment for race Performed By: #### L AB15, [id number] ####Event Marketing Intern: LESLEE HERNANDEZ ([id number])[facility] ([facility])[address] Glucose [Mass/Vol] 113 mg/dL High 70-100 [facility] Comment on above: Performed By: #### L AB15, [id number] ####Event Marketing Intern: LESLEE HERNANDEZ ([id number])[facility] (SBHLAB)[address] [place] [address] [place] Potassium [Moles/Vol] 3.5 mmol/L Normal 3.5-5.1 [facility] Comment on above: Performed By: #### L AB15, [id number] ####Event Marketing Intern: LESLEE HERNANDEZ ([id number])[facility] (SBHLAB)[address] Sodium [Moles/Vol] 138 mmol/L Normal 135-145 [facility] Comment on above: Performed By: #### L AB15, [id number] ####Event Marketing Intern: LESLEE HERNANDEZ ([id number])[facility] [place] (SBHLAB)[address] Urea nitrogen [Mass/Vol] 27 mg/dL High 9-20 [facility] Comment on above: Performed By: #### L AB15, [id number] ####Event Marketing Intern: LESLEE HERNANDEZ ([id number])[facility] [place] (SBHLAB)[address] Basic metabolic 1998 panelon 03-07-2024 Anion gap [Moles/Vol] 12 mmol/L 3 - 13 mmol/L [facility] Calcium [Mass/Vol] 9.4 mg/dL 8.4 - 10. 4 mg/dL [facility] Chloride [Moles/Vol] 104 mmol/L 98 - 10 7 mmol/L [facility] CO2 [Moles/Vol] 22 mmol/L 22 - 30 mmol/L [facility] Creatinine [Mass/Vol] 1.74 mg/dL High 0.66 - 1.25 mg/dL [facility] GFR/1.73 sq M.predicted (S/P/Bld) [Vol rate/Area] 48.4 mL/min Low - PINF [facility] Comment on above: Calculation based on the Chronic Kidney Disease Epidemiology Collaboration (CKD-EPI) equation refit without adjustment for race Glucose [Mass/Vol] 113 mg/dL High 70 - 100 mg/dL [facility] Interpretation and review of laboratory results Abnormal [facility] Potassium [Moles/Vol] 3.5 mmol/L 3.5 - 5.1 mmol/L [facility] Sodium [Moles/Vol] 138 mmol/L 135 - 145 mmol/L [facility] Urea nitrogen [Mass/Vol] 27 mg/dL High 9 - 20 mg/dL [facility] CBC (HEMOGRAM)on 03-07-2024 Erythrocyte distribution width (RBC) [Ratio] 11.6 % Normal 11.5-15.0 [facility] Comment on above: Performed By: #### L AB294 ####Event Marketing Intern: LESLEE MCNEILLNinoskaTYRONE ([id number])[facility] [place] (SBHLAB)[address] [place] [address] Hematocrit (Bld) [Volume fraction] 45.5 % Normal 40.0-52.0 [facility] Comment on above: Performed By: #### L AB294 ####Event Marketing Intern: LESLEE MARY ([id number])[facility]ITAL[facility]ITALMarguer[facility] (SBAB)[address] Hemoglobin (Bld) [Mass/Vol] 15.5 g/dL Normal 13.0-18.0 [facility] Comment on above: Performed By: #### L AB294 ####Event Marketing Intern: LESLEEFIDELIA HERNANDEZ ([id number])[facility])[address] [place] [address] MCH (RBC) [Entitic mass] 31.5 pg Normal 26.0-34.0 [facility] Comment on above: Performed By: #### L AB294 ####Event Marketing Intern: LESLEE MCNEILLNinoskaTYRONE ([id number])[facility])[address] [place] [address] MCHC 34.1 % Normal 30.5-36.0 [facility] Comment on above: Performed By: #### L AB294 ####Event Marketing Intern: LESLEE TURKTYRONE ([id number])[facility] ([facility])[address] [place] [address] MCV (RBC) [Entitic vol] 92.5 fL Normal 77.0-99.0 [facility] Comment on above: Performed By: #### L AB294 ####Event Marketing Intern: LESLEE HERNANDEZ ([id number])[facility]AL[facility] ([facility])[address] [place] [address] Platelet mean volume (Bld) [Entitic vol] 9.0 fL Normal 9.0-12.7 [facility] Comment on above: Performed By: #### L AB294 ####Event Marketing Intern: LESLEE TURKTYRONE ([id number])[facility]ITAL[facility] [place] (SBHLAB)[address] Platelets (Bld) [#/Vol] 331 10*3/uL Normal 140-440 [facility] Comment on above: Performed By: #### L AB294 ####Event Marketing Intern: LESLEE TORRESCER ([id number])[facility]ITAL[facility] (SBHLAB)[address] RBC (Bld) [#/Vol] 4.92 10*6/uL Normal 4.40-5.90 [facility] Comment on above: Performed By: #### L AB294 ####Event Marketing Intern: LESLEE TURKTYROEN ([id number])[facility]ITAL[facility]TNEW [facility]EX[facility] L[facility] VE[facility]ASN (SBHLAB)[address] [place] [address] WBC (Bld) [#/Vol] 4.4 10*3/uL Normal 3.6-10.7 [facility] Comment on above: Performed By: #### L AB294 ####Event Marketing Intern: LESLEE TURKTYRONE ([id number])[facility]ITAL[facility]TNEW [facility] (SBHLAB)[address] [place] [address] CBC panel Auto (Bld)Ordered By: Roberto Puckett on 03-07-2024 Erythrocyte distribution width (RBC) [Ratio] 11.6 % 11.5 - 15.0 % [facility] Hematocrit (Bld) [Volume fraction] 45.5 % 40.0 - 52.0 % [facility] Hemoglobin (Bld) [Mass/Vol] 15.5 g/dL 13.0 - 18.0 g/dL [facility] Interpretation and review of laboratory results Normal [facility] MCH (RBC) [Entitic mass] 31.5 pg 26.0 - 34.0 pg [facility] MCHC (RBC) [Mass/Vol] 34.1 % 30.5 - 36.0 % [facility] MCV (RBC) [Entitic vol] 92.5 fL 77.0 - 99.0 fL [facility] Platelet mean volume (Bld) [Entitic vol] 9.0 fL 9.0 - 12.7 fL [facility] Platelets (Bld) [#/Vol] 331 10*3/uL 140 - 440 10*3/uL [facility] RBC (Bld) [#/Vol] 4.92 10*6/uL 4.40 - 5.9 0 10*6/uL [facility] WBC (Bld) [#/Vol] 4.4 10*3/uL 3.6 - 10.7 10*3/uL [facility] Consulton 03-07-2024 Consult Normal [facility] ECG 12-LEADon 03-07-2024 ECG 12-LEAD IMPRESSION: Sinus rhythm Probable left atrial enlargement LVH with secondary repolarization abnormality Electronically Signed On 03-07-2024 09:21:22 EDT by Ming Nayak Normal [facility] IDNon 03-07-2024 IDN The patient is Moderately Stable - Low risk of patient condition declining or worsening The patient's goals for the shift include rest The clinical goals for the shift include comfort Normal [facility] Laboratory - Chemistry and C hemistry - challengeon 03-07-2024 Magnesium [Mass/Vol] 2.1 mg/dL 1.6 - 2 .3 mg/dL [facility] MAGNESIUMon 03-07-2024 Magnesium [Mass/Vol] 2.1 mg/dL Normal 1.6-2.3 [facility] Comment on above: Performed By: #### L AB15, [id number] ####Event Marketing Intern: LESLEE HERNANDEZ ([id number])[facility] [place] ([facility])[address] [place] [address] Magnesium [Mass/Vol]on 03-07 Interpretation and review of laboratory results Normal [facility] No Panel InformationOrdered By: Ming Nayak on 03-07-2024 P [place] 65 degrees [facility] [employer] Work Phone: NM Interval 140 ms [facility] [employer] Work Phone: QRS [place] -11 degrees [facility] [employer] Work Phone: QRSD Interval 104 ms [facility] [employer] Work Phone: QT Interval 365 ms [facility] [employer] Work Phone: QTC Interval 465 ms [facility] [employer] Phone: T Wave [place] 139 degrees [facility] Phone: [facility] Phone: No Panel Informationon 03-07 Sinus rhythm Probable left atrial enlargement LVH with secondary repolarization abnormality Electronically Signed On 03-07-2024 09:21:22 EDT by Ming Nayak CV Ming Palacios MD - 03/07/2024 IMPRESSION: Sinus rhythm Probable left atrial enlargement LVH with secondary repolarization abnormality Electronically Signed On 03-07-2024 09:21:22 EDT by Ming Nayak [facility] Progress Noteon 03-07-2024 Progress Note Normal [facility] Vital signsOrdered By: Nilsa Nayak on 03-07-2024 Heart rate 98 /min bpm [facility] [employer] Phone: BASIC METABOLIC PANELon Anion gap [Moles/Vol] 10 mmol/L Normal 3-13 [facility] Comment on above: Performed By: #### L AB15, [id number] ####Event Marketing Intern: LESLEE HERNANDEZ ([id number])[facility] ([facility])[address] Calcium [Mass/Vol] 9.6 mg/dL Normal 8.4-10.4 [facility] Comment on above: Performed By: #### L AB15, [id number] ####Event Marketing Intern: LESLEE HERNANDEZ ([id number])[facility] (SBHLAB)[address] [place] [address] [place] Chloride [Moles/Vol] 102 mmol/L Normal 98-107 [facility] Comment on above: Performed By: #### L AB15, [id number] ####Event Marketing Intern: LESLEE HERNANDEZ ([id number])[facility] (SBHLAB)[address] [place] [address] [place] CO2 [Moles/Vol] 28 mmol/L Normal 22-30 [facility] Comment on above: Performed By: #### L AB15, [id number] ####Event Marketing Intern: LESLEE HERNANDEZ ([id number])[facility] [place] (SBHLAB)[address] Creatinine [Mass/Vol] 1.71 mg/dL High 0.66-1.25 [facility] Comment on above: Performed By: #### L AB15, [id number] ####Event Marketing Intern: LESLEE HERNANDEZ ([phone])[facility] [place] (SBHLAB)[address] GLOMERULAR FILTRATION RATE ML/MIN/1.73 SQ M.PREDICTED 49.4 mL/min/1.73m*2 Low >60.0 [facility] Comment on above: Result Comment: Calc ulation based on the Chronic Kidney Disease Epidemiology Collaboration (CKD-EPI) equation refit without adjustment for race Performed By: #### L AB15, [id number] ####Event Marketing Intern: LESLEE HERNANDEZ ([id number])[facility] [place] (SBHLAB)[address] Glucose [Mass/Vol] 102 mg/dL High 70-100 [facility] Comment on above: Performed By: #### L AB15, [id number] ####Event Marketing Intern: LESLEE HERNANDEZ ([id number])[facility] [place] (SBHLAB)[address] [place] [address] [place] Potassium [Moles/Vol] 3.8 mmol/L Normal 3.5-5.1 [facility] Comment on above: Performed By: #### L AB15, [id number] ####Event Marketing Intern: LESLEE HERNANDEZ ([id number])[facility] [place] (SBHLAB)[address] [place] [address] [place] Sodium [Moles/Vol] 141 mmol/L Normal 135-145 [facility] Comment on above: Performed By: #### L AB15, [id number] ####Event Marketing Intern: LESLEE HERNANDEZ ([id number])[facility] (SBHLAB)[address] Urea nitrogen [Mass/Vol] 22 mg/dL High 9-20 [facility] Comment on above: Performed By: #### L AB15, [id number] ####Event Marketing Intern: LESLEE HERNANDEZ ([id number])[facility] [place] (SBHLAB)[address] Basic metabolic 1998 panelon 03-06-2024 Anion gap [Moles/Vol] 10 mmol/L 3 - 13 mmol/L [facility] Calcium [Mass/Vol] 9.6 mg/dL 8.4 - 10. 4 mg/dL [facility] Chloride [Moles/Vol] 102 mmol/L 98 - 10 7 mmol/L [facility] CO2 [Moles/Vol] 28 mmol/L 22 - 30 mmol/L [facility] Creatinine [Mass/Vol] 1.71 mg/dL High 0.66 - 1.25 mg/dL [facility] GFR/1.73 sq M.predicted (S/P/Bld) [Vol rate/Area] 49.4 mL/min Low - PINF [facility] Comment on above: Calculation based on the Chronic Kidney Disease Epidemiology Collaboration (CKD-EPI) equation refit without adjustment for race Glucose [Mass/Vol] 102 mg/dL High 70 - 100 mg/dL [facility] Interpretation and review of laboratory results Abnormal [facility] Potassium [Moles/Vol] 3.8 mmol/L 3.5 - 5.1 mmol/L [facility] Sodium [Moles/Vol] 141 mmol/L 135 - 145 mmol/L [facility] Urea nitrogen [Mass/Vol] 22 mg/dL High 9 - 20 mg/dL [facility] Consulton 03-06-2024 Consult Normal [facility] ED Nursing Noteon 03-06-2024 ED Nursing Note Called [facility] to inform of pt refusing to go by squad and wants to go private vehicle. Pauline Martinez RN 03/06/24 0824 Normal [facility] IDNon 03-06-2024 IDN Normal [facility] Laboratory - Chemistry and C hemistry - challengeon 03-06-2024 Magnesium [Mass/Vol] 2.2 mg/dL 1.6 - 2 .3 mg/dL [facility] TSH Qn 4.380 m[IU]/L [facility] MAGNESIUMon 03-06-2024 Magnesium [Mass/Vol] 2.2 mg/dL Normal 1.6-2.3 [facility] Comment on above: Performed By: #### L AB15, [id number] ####Event Marketing Intern: LESLEE HERNANDEZ ([id number])[facility] (SBHLAB)[address] [place] [address] [place] Magnesium [Mass/Vol]on 03-06 Interpretation and review of laboratory results Normal [facility] No Panel Informationon 03-06 [facility] TSH Qnon 03-06-2024 Interpretation and review of laboratory results Normal [facility] BASIC METABOLIC PANELon Anion gap [Moles/Vol] 9 mmol/L Normal 3-13 [facility] Comment on above: Performed By: #### L AB15, [id number], OXJ102, POR143 ####Event Marketing Intern: NICOLE BOWERS ([id number])[facility] KAMALJIT [place] (SWRLAB)[address] [place] [address] [place] Calcium [Mass/Vol] 8.9 mg/dL Normal 8.4-10.4 [facility] Comment on above: Performed By: #### L AB15, [id number], ZGA659, BWV523 ####Event Marketing Intern: NICOLE BOWERS ([id number])[facility] KAMALJIT [place]TM[place] (SWRLAB)[address] [place] [address] [place] Chloride [Moles/Vol] 104 mmol/L Normal 98-107 [facility] Comment on above: Performed By: #### L AB15, [id number], ZQA181, MWA029 ####Event Marketing Intern: NICOLE BOWERS ([id number])[facility] KAMALJIT [place] (SWRLAB)[address] [place] [address] [place] CO2 [Moles/Vol] 25 mmol/L Normal 22-30 [facility] Comment on above: Performed By: #### L AB15, [id number], DXH581, GWU138 ####Event Marketing Intern: NICOLE BOWERS ([id number])[facility] [place] (SWRLAB)[address] [place] [address] [place] Creatinine [Mass/Vol] 1.65 mg/dL High 0.66-1.25 [facility] Comment on above: Performed By: #### L AB15, [id number], [id number], [id number] ####Event Marketing Intern: NICOLE BOWERS ([id number])[facility] [place] (SWRLAB)[address] [place] [address] [place] GLOMERULAR FILTRATION RATE ML/MIN/1.73 SQ M.PREDICTED 51.5 mL/min/1.73m*2 Low >60.0 [facility] Comment on above: Result Comment: Calc ulation based on the Chronic Kidney Disease Epidemiology Collaboration (CKD-EPI) equation refit without adjustment for race Performed By: #### L AB15, [id number], [id number], [id number] ####Event Marketing Intern: NICOLE BOWERS ([phone])[facility] FLOREZTMAN (SWRLAB)[address] [place] [address] [place] Glucose [Mass/Vol] 103 mg/dL High 70-100 [facility] Comment on above: Performed By: #### L AB15, [id number], [id number], [id number] ####Event Marketing Intern: NICOLE BOWERS ([phone])[facility]ITAL[facility] FLOREZTMAN (SWRLAB)[address] [place] [address] [place] Potassium [Moles/Vol] 3.9 mmol/L Normal 3.5-5.1 [facility] Comment on above: Performed By: #### L AB15, [id number], [id number], [id number] ####Event Marketing Intern: NICOLE BOWRES ([phone])[facility] MARI RITTMAN (SWRLAB)[address] [place] [address] [place] Sodium [Moles/Vol] 138 mmol/L Normal 135-145 [facility] Comment on above: Performed By: #### L AB15, [id number], [id number], [id number] ####Event Marketing Intern: NICOLE BOWERS ([id number])[facility] KAMALJITSHORTY FLOREZTMAN (SWRLAB)[address] Urea nitrogen [Mass/Vol] 22 mg/dL High 9-20 [facility] Comment on above: Performed By: #### L AB15, [id number], [id number], [id number] ####Event Marketing Intern: NICOLE BOWERS ([phone])[facility] VIKKITMAN (SWRLAB)[address] Basic metabolic 1998 panelon 03-05-2024 Anion gap [Moles/Vol] 9 mmol/L 3 - 13 mmol/L [facility] Calcium [Mass/Vol] 8.9 mg/dL 8.4 - 10. 4 mg/dL [facility] Chloride [Moles/Vol] 104 mmol/L 98 - 10 7 mmol/L [facility] CO2 [Moles/Vol] 25 mmol/L 22 - 30 mmol/L [facility] Creatinine [Mass/Vol] 1.65 mg/dL High 0.66 - 1.25 mg/dL [facility] GFR/1.73 sq M.predicted (S/P/Bld) [Vol rate/Area] 51.5 mL/min Low - PINF [facility] Comment on above: Calculation based on the Chronic Kidney Disease Epidemiology Collaboration (CKD-EPI) equation refit without adjustment for race Glucose [Mass/Vol] 103 mg/dL High 70 - 100 mg/dL [facility] Interpretation and review of laboratory results Abnormal [facility] Potassium [Moles/Vol] 3.9 mmol/L 3.5 - 5.1 mmol/L [facility] Sodium [Moles/Vol] 138 mmol/L 135 - 145 mmol/L [facility] Urea nitrogen [Mass/Vol] 22 mg/dL High 9 - 20 mg/dL [facility] CBC (HEMOGRAM)on 03-05-2024 Erythrocyte distribution width (RBC) [Ratio] 11.7 % Normal 11.5-15.0 [facility] Comment on above: Performed By: #### L [id number] ####Event Marketing Intern: NICOLE BOWERS ([phone])[facility] KAMALJIT RITTMAN (SWRLAB)[address] [place] [address] Hematocrit (Bld) [Volume fraction] 39.2 % Low 40.0-52.0 [facility] Comment on above: Performed By: #### L [id number] ####Event Marketing Intern: NICOLE BOWERS ([phone])[facility]ITAL[facility] MARI RITTMAN (SWRLAB)[address] [place] [address] Hemoglobin (Bld) [Mass/Vol] 13.4 g/dL Normal 13.0-18.0 [facility] Comment on above: Performed By: #### L [id number] ####Event Marketing Intern: NICOLE BOWERS ([phone])[facility]ITAL[facility] MARI RITTMAN (SWRLAB)[address] [place] [address] MCH (RBC) [Entitic mass] 31.8 pg Normal 26.0-34.0 [facility] Comment on above: Performed By: #### L [id number] ####Event Marketing Intern: NICOLE BOWERS ([phone])[facility] MARI RITTMAN (SWRLAB)[address] [place] [address] MCHC 34.2 % Normal 30.5-36.0 [facility] Comment on above: Performed By: #### L [id number] ####Event Marketing Intern: NICOLE BOWERS ([phone])[facility]ITALKey[facility] FLOREZTMAN (SWRLAB)[address] [place] [address] MCV (RBC) [Entitic vol] 93.1 fL Normal 77.0-99.0 [facility] Comment on above: Performed By: #### L [id number] ####Event Marketing Intern: NICOLE BOWERS ([phone])[facility]ITAL[facility] MARI RITTMAN (SWRLAB)[address] [place] [address] Platelet mean volume (Bld) [Entitic vol] 9.2 fL Normal 9.0-12.7 [facility] Comment on above: Result Comment: MPV is a calculated measurement using platelet volume ratio Performed By: #### L [id number] ####Event Marketing Intern: NICOLE BOWERS ([phone])[facility]ITALKey[facility] FLOREZTMAN (SWRLAB)[address] [place] [address] [place] Platelets (Bld) [#/Vol] 313 10*3/uL Normal 140-440 [facility] Comment on above: Performed By: #### L [id number] ####Event Marketing Intern: NICOLE BOWERS ([phone])[facility]ITAL[facility] FLOREZTMAN (SWRLAB)[address] [place] [address] RBC (Bld) [#/Vol] 4.21 10*6/uL Low 4.40-5.90 [facility] Comment on above: Performed By: #### L [id number] ####Event Marketing Intern: NICOLE BOWERS ([phone])[facility]ITAL[facility] FLOREZTMAN (SWRLAB)[address] [place] [address] WBC (Bld) [#/Vol] 5.5 10*3/uL Normal 3.6-10.7 [facility] Comment on above: Performed By: #### L [id number] ####Event Marketing Intern: NICOLE BOWERS ([phone])[facility]ITAL[facility] FLOREZTMAN (SWRLAB)[address] [place] [address] CBC panel Auto (Bld)on 03-05 Erythrocyte distribution width (RBC) [Ratio] 11.7 % 11.5 - 15.0 % [facility] Hematocrit (Bld) [Volume fraction] 39.2 % Low 40.0 - 52.0 % [facility] Hemoglobin (Bld) [Mass/Vol] 13.4 g/dL 13.0 - 18.0 g/dL [facility] Interpretation and review of laboratory results Abnormal [facility] MCH (RBC) [Entitic mass] 31.8 pg 26.0 - 34.0 pg [facility] MCHC (RBC) [Mass/Vol] 34.2 % 30.5 - 36.0 % [facility] MCV (RBC) [Entitic vol] 93.1 fL 77.0 - 99.0 fL [facility] Platelet mean volume (Bld) [Entitic vol] 9.2 fL 9.0 - 12.7 fL [facility] Comment on above: MPV is a calculated measurement using platelet volume ratio Platelets (Bld) [#/Vol] 313 10*3/uL 140 - 440 10*3/uL [facility] RBC (Bld) [#/Vol] 4.21 10*6/uL Low 4.40 - 5.9 0 10*6/uL [facility] WBC (Bld) [#/Vol] 5.5 10*3/uL 3.6 - 10.7 10*3/uL [facility] CT CHEST ANGIOGRAM W AND/OR WO IV CONTRASTon 03-05-2024 CT CHEST ANGIOGRAM W AND/OR WO IV CONTRAST Normal [facility] [...] MD Electronically Signed Date/Time: 03/05/2024 11:53 PM [facility] 1980 [id number] Exam Date/Time: 03/05/2024 23:42 Procedure: CT CHEST [...] unremarkable. Degenerative change in the thoracic spine. [facility] Nir Shen MD - 03/05/2024 [facility] Name: [facility]LO MEDINA : 1980 [id number] Exam Date/Time: 03/05/2024 23:42 Procedure: CT CHEST [...] [facility] Study observation (narrative) [facility] D-DIMER,QUANTITATIVEon 03-05 D-DIMER, INNOVANCE 1.03 mg/L High <0.50 [facility] Comment on above: Result Comment: ALEJANDRO Aleman COMMENTS:Innovance D-Dimer values of <0.50 mg/L FEU can be used in combination with a pre-test probability model (e.g. Well's) to exclude pulmonary embolism (PE) disease, as well as an aid in the diagnosis of deep vein thrombosis (DVT). Performed By: #### L [id number] ####Event Marketing Intern: NICOLE BOWERS ([phone])[facility] ([facility])[address] [place] [address] ECG 12-LEADon 03-05-2024 ECG 12-LEAD IMPRESSION: Sinus tachycardia Left atrial enlargement LVH with secondary repolarization abnormality Electronically Signed On 03-05-2024 21:54:46 EDT by Shane Stern Normal [facility] ED Nursing Noteon 03-05-2024 ED Nursing Note 44 m to ED c/o sob since 7pm. Pt reports he was seen at [facility] for same complaints last week. Was d/c'd Friday with new diagnosis of CHF. Pt reports SOB improved while he was up walking. Pt arrived at 88% on rm air. Placed on 3L nc. Normal [facility] ED Nursing Note Pt removed by physician with sats maintained. Per Dr. Julien, pt is permitted to be driven by private car. IV access maintained intact in right AC with a coban wrap Marycarmen Dias RN 03/06/24 [id number] Normal [facility] ED Nursing Note Normal [facility] ED Provider Noteon ED Provider Note Normal [facility] Fibrin D-dimer FEU (PPP) [Ma ss/Vol]on 03-05-2024 Interpretation and review of laboratory results Abnormal [facility] D-Dimer values of <0.50 mg/L FEU can be used in combination with a pre-test probability model (e.g. Well's) to exclude pulmonary embolism (PE) disease, as well as an aid in the diagnosis of deep vein thrombosis (DVT). [facility] Laboratory - Chemistry and C hemistry - challengeon 03-05-2024 Troponin I.cardiac [Mass/Vol] 0.019 ng/mL NINF - 0.034 ng/mL [facility] Laboratory - Coagulationon 0 03-05-2024 Fibrin D-dimer FEU (PPP) [Mass/Vol] 1.03 mg/L High NINF - 0.50 mg/L [facility] Laboratory - Microbiology an d Antimicrobial susceptibilityon 03-05-2024 FLUAV RNA DEENA+probe Ql (Resp) Not detected Not Detected [facility] FLUBV RNA DEENA+probe Ql (Resp) Not detected Not Detected [facility] RSV RNA DEENA+probe Ql (Resp) Not detected Not Detected [facility] SARS-CoV-2 (COVID-19) RNA DEENA+probe Ql (Resp) Not detected Not Detected [facility] SARS-CoV-2 (COVID-19) RNA DEENA+probe Ql (Unsp spec) Methodology: real-time, RT-PCR The SARS-CoV-2, Flu A/B, and RSV Combo assay is intended for in vitro diagnostic use under the FDA Emergency Use Authorization (EUA). This test has not been FDA cleared or approved. In compliance with this authorization, please visit www.fda.gov/media/824 435/download or www.fda.gov/media/526 436/download to access the applicable information sheets. [facility] NT PRO BNPon 03-05-2024 Natriuretic peptide B (Bld) [Mass/Vol] 9740 pg/mL High <20-100 [facility] Comment on above: Performed By: #### L AB15, [id number], [id number], [id number] ####Event Marketing Intern: NICOLE BOWERS ([phone])[facility] (SWRLAB)[address] [place] [address] Natriuretic peptide B [Mass/ Vol]on 03-05-2024 Interpretation and review of laboratory results Abnormal [facility] Natriuretic peptide B (Bld) [Mass/Vol] 9740 pg/mL High <20 - 100 [facility] No Panel Informationon 03-05 [facility] P [place] 54 degrees [facility] NM Interval 148 ms [facility] QRS [place] -11 degrees [facility] QRSD Interval 101 ms [facility] QT Interval 339 ms [facility] QTC Interval 463 ms [facility] T Wave [place] 117 degrees [facility] Sinus tachycardia Left atrial enlargement LVH [...] (COVID-19) RNA DEENA+probe Ql (Unsp spec) Normal [facility] Comment on above: Performed By: #### L [id number] ####Event Marketing Intern: NICOLE BOWERS ([id number])[facility] ([facility])[address] [place] [address] SARS-CoV-2, Flu A/B, and RSV Comboon 03-05-2024 Interpretation and review of laboratory results Normal [facility] THYROID STIMULATING HORMONEo n 03-05-2024 THYROID STIMULATING HORMONE 4.380 uIU/mL Normal 0.465-4.680 [facility] Comment on above: Performed By: #### L AB15, [id number], [id number], [id number] ####Event Marketing Intern: NICOLE BOWERS ([phone])[facility] (RLAB)[address] TROPONIN Ion 03-05-2024 Troponin I.cardiac [Mass/Vol] 0.019 ng/mL Normal <0.034 [facility] Comment on above: Result Comment: ORDE R COMMENTS:Patients with high levels of Biotin oral intake (ie >5 mg/day) may have falsely decreased Troponin levels. Performed By: #### L AB15, [id number], [id number], [id number] ####Event Marketing Intern: NICOLE BOWERS ([phone])[facility] (SWRLAB)[address] [place] [address] Troponin I.cardiac [Mass/Vol ]on 03-05-2024 Interpretation and review of laboratory results Normal [facility] Patients with high levels of Biotin oral intake (ie >5 mg/day) may have falsely decreased Troponin levels. [facility] Vital signson 03-05-2024 Heart rate 112 /min bpm [facility] XR Chest Single viewon 03-05 1. Findings compatible with vascular congestion and interstitial edema, in the appropriate clinical setting, versus nonspecific postinflammatory change and bronchitis, with perihilar infiltrates, similar to comparison. Clinical correlation and follow-up as indicated. Report Dictated on Electronically Signed By: Nir Shen MD Electronically Signed Date/Time: 03/05/2024 10:35 PM EDT [facility] Patient Name: CARLO MEDINA : 1980 [...] change again noted in the thoracic spine. [facility] Nir Shen MD - 03/05/2024 Patient [...] Electronically Signed Date/Time: 03/05/2024 10:35 PM EDT [facility] Radiology Study observation (narrative) [facility] XR Chest Single viewOrdered By: Nir Shen on 03-05-2024 [facility] Work Phone: 36on 03-04-2024 36 Unable to contact patient X2 Normal [facility] 36on 03-02-2024 36 S: Patient admitted to: [facility] 02/28/24 B: Discharged on : 03/01/24 A: Hospital follow up call initiated to discuss any medication changes, follow up appointments and discharge instructions: Shortness of breath R: No contact x 1 at : [phone] Normal [facility] 36 Normal [facility] BASIC METABOLIC PANELon Anion gap [Moles/Vol] 7 mmol/L Normal 3-13 [facility] Comment on above: Performed By: #### L AB15 ####Event Marketing Intern: LESLEE HERNANDEZ ([phone])[facility]ITAL[facility] AL[facility] ([facility])[address] [place] [address] Calcium [Mass/Vol] 8.7 mg/dL Normal 8.4-10.4 [facility] Comment on above: Performed By: #### L AB15 ####Event Marketing Intern: LESLEE HERNANDEZ ([phone])[facility]ITAL[facility] [place] (SBHLAB)[address] Chloride [Moles/Vol] 106 mmol/L Normal 98-107 [facility] Comment on above: Performed By: #### L AB15 ####Event Marketing Intern: LESLEE HERNANDEZ ([id number])[facility]ITAL[facility] [place] (SBHLAB)[address] CO2 [Moles/Vol] 23 mmol/L Normal 22-30 [facility] Comment on above: Performed By: #### L AB15 ####Event Marketing Intern: LESLEE HERNANDEZ ([phone])[facility] (SBHLAB)[address] Creatinine [Mass/Vol] 1.56 mg/dL High 0.66-1.25 [facility] Comment on above: Performed By: #### L AB15 ####Event Marketing Intern: LESLEE HERNANDEZ ([phone])[facility]OB[facility] (SBHLAB)[address] GLOMERULAR FILTRATION RATE ML/MIN/1.73 SQ M.PREDICTED 55.1 mL/min/1.73m*2 Low >60.0 [facility] Comment on above: Result Comment: Calc ulation based on the Chronic Kidney Disease Epidemiology Collaboration (CKD-EPI) equation refit without adjustment for race Performed By: #### L AB15 ####Event Marketing Intern: LESLEE HERNANDEZ ([phone])[facility]ITAL[facility] (SBHLAB)[address] Glucose [Mass/Vol] 103 mg/dL High 70-100 [facility] Comment on above: Performed By: #### L AB15 ####Event Marketing Intern: LESLEE HERNANDEZ ([id number])[facility] (SBHLAB)[address] Potassium [Moles/Vol] 3.7 mmol/L Normal 3.5-5.1 [facility] Comment on above: Performed By: #### L AB15 ####Event Marketing Intern: LESLEE HERNANDEZ ([phone])[facility] LELONEW [facility] (SBHLAB)[address] Sodium [Moles/Vol] 136 mmol/L Normal 135-145 [facility] Comment on above: Performed By: #### L AB15 ####Event Marketing Intern: LESLEE HERNANDEZ ([phone])[facility] LELONEW [facility] (SBHLAB)[address] Urea nitrogen [Mass/Vol] 22 mg/dL High 9-20 [facility] Comment on above: Performed By: #### L AB15 ####Event Marketing Intern: LESLEE HERNANDEZ ([phone])[facility] (SBHLAB)[address] Basic metabolic 1998 panelon 03-01-2024 Anion gap [Moles/Vol] 7 mmol/L 3 - 13 mmol/L [facility] Calcium [Mass/Vol] 8.7 mg/dL 8.4 - 10. 4 mg/dL [facility] Chloride [Moles/Vol] 106 mmol/L 98 - 10 7 mmol/L [facility] CO2 [Moles/Vol] 23 mmol/L 22 - 30 mmol/L [facility] Creatinine [Mass/Vol] 1.56 mg/dL High 0.66 - 1.25 mg/dL [facility] GFR/1.73 sq M.predicted (S/P/Bld) [Vol rate/Area] 55.1 mL/min Low - PINF [facility] Comment on above: Calculation based on the Chronic Kidney Disease Epidemiology Collaboration (CKD-EPI) equation refit without adjustment for race Glucose [Mass/Vol] 103 mg/dL High 70 - 100 mg/dL [facility] Interpretation and review of laboratory results Abnormal [facility] Potassium [Moles/Vol] 3.7 mmol/L 3.5 - 5.1 mmol/L [facility] Sodium [Moles/Vol] 136 mmol/L 135 - 145 mmol/L [facility] Urea nitrogen [Mass/Vol] 22 mg/dL High 9 - 20 mg/dL [facility] CBC W Auto Differential pane l (Bld)on 03-01-2024 Basophils (Bld) [#/Vol] 0.0 10*3/uL 0.0 - 0.2 10*3/uL [facility] Basophils/100 WBC (Bld) 0.4 % 0.0 - 2.0 % [facility] Eosinophils (Bld) [#/Vol] 0.1 10*3/uL 0.0 - 0.5 10*3/uL [facility] Eosinophils/100 WBC (Bld) 2.4 % 0.0 - 6.0 % [facility] Erythrocyte distribution width (RBC) [Ratio] 11.8 % 11.5 - 15.0 % [facility] Hematocrit (Bld) [Volume fraction] 40.3 % 40.0 - 52.0 % [facility] Hemoglobin (Bld) [Mass/Vol] 13.5 g/dL 13.0 - 18.0 g/dL [facility] Immature granulocytes (Bld) [#/Vol] 0.0 10*3/uL NINF - 0.1 10*3/uL [facility] Immature granulocytes/100 WBC (Bld) 0.2 % 0.0 - 2.0 % [facility] Interpretation and review of laboratory results Abnormal [facility] Lymphocytes (Bld) [#/Vol] 2.1 10*3/uL 1.0 - 4.3 10*3/uL [facility] Lymphocytes/100 WBC (Bld) 42.4 % 15.0 - 45.0 % [facility] MCH (RBC) [Entitic mass] 31.3 pg 26.0 - 34.0 pg [facility] MCHC (RBC) [Mass/Vol] 33.5 % 30.5 - 36.0 % [facility] MCV (RBC) [Entitic vol] 93.3 fL 77.0 - 99.0 fL [facility] Monocytes (Bld) [#/Vol] 0.5 10*3/uL 0.0 - 0.9 10*3/uL [facility] Monocytes/100 WBC (Bld) 10.1 % 5.0 - 13.0 % [facility] Neutrophils (Bld) [#/Vol] 2.2 10*3/uL 1.8 - 7.5 10*3/uL [facility] Neutrophils/100 WBC (Bld) 44.5 % 38.0 - 82.0 % [facility] Nucleated RBC/100 WBC (Bld) [Ratio] 0.0 % [facility] Platelet mean volume (Bld) [Entitic vol] 9.6 fL 9.0 - 12.7 fL [facility] Platelets (Bld) [#/Vol] 280 10*3/uL 140 - 440 10*3/uL [facility] RBC (Bld) [#/Vol] 4.32 10*6/uL Low 4.40 - 5.9 0 10*6/uL [facility] WBC (Bld) [#/Vol] 4.9 10*3/uL 3.6 - 10.7 10*3/uL [facility] CBC WITH AUTO DIFFERENTIALon 03-01-2024 Basophils (Bld) [#/Vol] 0.0 10*3/uL Normal 0.0-0.2 [facility] Comment on above: Performed By: #### L [id number] ####Event Marketing Intern: LESLEE HERNANDEZ ([id number])[facility] ([facility])[address] [place] [address] Basophils/100 WBC (Bld) 0.4 % Normal 0.0-2.0 [facility] Comment on above: Performed By: #### L [id number] ####Event Marketing Intern: LESLEE HERNANDEZ ([id number])[facility] ([facility])[address] [place] [address] Eosinophils (Bld) [#/Vol] 0.1 10*3/uL Normal 0.0-0.5 [facility] Comment on above: Performed By: #### L [id number] ####Event Marketing Intern: LESLEE HERNANDEZ ([id number])[facility] ([facility])[address] Eosinophils/100 WBC (Bld) 2.4 % Normal 0.0-6.0 [facility] Comment on above: Performed By: #### L [id number] ####Event Marketing Intern: LESLEE HERNANDEZ ([phone])[facility] ([facility])[address] [place] [address] Erythrocyte distribution width (RBC) [Ratio] 11.8 % Normal 11.5-15.0 [facility] Comment on above: Performed By: #### L [id number] ####Event Marketing Intern: LESLEE TURKTYRONE ([id number])[facility] (SBHL[facility])[address] Hematocrit (Bld) [Volume fraction] 40.3 % Normal 40.0-52.0 [facility] Comment on above: Performed By: #### L [id number] ####Event Marketing Intern: LESLEE TURKTYRONE ([phone])[facility] ([facility])[address] Hemoglobin (Bld) [Mass/Vol] 13.5 g/dL Normal 13.0-18.0 [facility] Comment on above: Performed By: #### L [id number] ####Event Marketing Intern: LESLEE TURKTYRONE ([id number])[facility] ([facility])[address] [place] [address] IMMATURE GRANS % 0.2 % Normal 0.0-2.0 [facility] Comment on above: Performed By: #### L [id number] ####Event Marketing Intern: LESLEE HERNANDEZ ([id number])[facility] ([facility])[address] [place] [address] IMMATURE GRANS ABSOLUTE 0.0 10*3/uL Normal <0.1 [facility] Comment on above: Performed By: #### L [id number] ####Event Marketing Intern: LESLEE TURKTYRONE ([id number])[facility] ([facility])[address] [place] [address] Lymphocytes (Bld) [#/Vol] 2.1 10*3/uL Normal 1.0-4.3 [facility] Comment on above: Performed By: #### L [id number] ####Event Marketing Intern: LESLEE HERNANDEZ ([id number])[facility] ([facility] [place] [address] Lymphocytes/100 WBC (Bld) 42.4 % Normal 15.0-45.0 [facility] Comment on above: Performed By: #### L [id number] ####Event Marketing Intern: LESLEE CHARITONinoskaTYRONE ([phone])[facility] [place] (SBHLAB)[address] MCH (RBC) [Entitic mass] 31.3 pg Normal 26.0-34.0 [facility] Comment on above: Performed By: #### L [id number] ####Event Marketing Intern: LESLEE MARY ([phone])[facility]BNEW [facility]EX[facility]ASN (SBHLAB)[address] MCHC 33.5 % Normal 30.5-36.0 [facility] Comment on above: Performed By: #### L [id number] ####Event Marketing Intern: LESLEE MARY ([phone])[facility]ITAL[facility]BNEW [facility]N (SBHLAB)[address] [place] [address] MCV (RBC) [Entitic vol] 93.3 fL Normal 77.0-99.0 [facility] Comment on above: Performed By: #### L [id number] ####Event Marketing Intern: LESLEE MCNEILLNinoskaTYRONE ([phone])[facility]ITAL[facility]BNEW [facility] (SBHLAB)[address] Monocytes (Bld) [#/Vol] 0.5 10*3/uL Normal 0.0-0.9 [facility] Comment on above: Performed By: #### L [id number] ####Event Marketing Intern: LESLEE TURKTYRONE ([id number])[facility] [place] (SBHLAB)[address] Monocytes/100 WBC (Bld) 10.1 % Normal 5.0-13.0 [facility] Comment on above: Performed By: #### L [id number] ####Event Marketing Intern: LESLEE TURKTYRONE ([phone])[facility] BARBNEW [facility]EX[facility]N (SBHLAB)[address] [place] [address] NEUTROPHILS ABSOLUTE 2.2 10*3/uL Normal 1.8-7.5 [facility] Comment on above: Performed By: #### L [id number] ####Event Marketing Intern: LESLEE HERNANDEZ ([phone])[facility] [place] (SBHLAB)[address] Neutrophils/100 WBC (Bld) 44.5 % Normal 38.0-82.0 [facility] Comment on above: Performed By: #### L [id number] ####Event Marketing Intern: LESLEE HERNANDEZ ([phone])[facility] (SBHLAB)[address] NRBC 0.0 /100 WBCs Normal 0.0-2.0 [facility] Comment on above: Performed By: #### L [id number] ####Event Marketing Intern: LESLEE HERNANDEZ ([id number])[facility]BNEW [facility]N (SBHLAB)[address] Platelet mean volume (Bld) [Entitic vol] 9.6 fL Normal 9.0-12.7 [facility] Comment on above: Performed By: #### L [id number] ####Event Marketing Intern: LESLEE HERNANDEZ ([phone])[facility]ITALA [facility] (SBHLAB)[address] [place] [address] [place] Platelets (Bld) [#/Vol] 280 10*3/uL Normal 140-440 [facility] Comment on above: Performed By: #### L [id number] ####Event Marketing Intern: LESLEE HERNANDEZ ([id number])[facility] BARBNEW MEX[facility]ASN (SBHLAB)[address] RBC (Bld) [#/Vol] 4.32 10*6/uL Low 4.40-5.90 [facility] Comment on above: Performed By: #### L [id number] ####Event Marketing Intern: LESLEE HERNANDEZ ([id number])[facility]BNEW [facility] (SBHLAB)[address] [place] [address] [place] WBC (Bld) [#/Vol] 4.9 10*3/uL Normal 3.6-10.7 [facility] Comment on above: Performed By: #### L [id number] ####Event Marketing Intern: LESLEE HERNANDEZ ([id number])[facility]ITALKey[facility] [place] ([facility])[address] [place] [address] Consulton 03-01-2024 Consult Normal [facility] HEMOGLOBIN A1Con 03-01-2024 Glucose [Mass/Vol] 97 mg/dL Normal [facility] Comment on above: Performed By: #### L [id number] ####Event Marketing Intern: LESLEE HERNANDEZ ([id number])[facility]ITALKeyon [place] ([facility])[address] [place] [address] HbA1c (Bld) [Mass fraction] 5.0 % Normal <5.7 [facility] Comment on above: Result Comment: Norm al less than 5.7%Prediabetes 5.7% to 6.4%Diabetes 6.5% or higher--HgbA1C levels may not be accurate in patients who have renal disease, received recent blood transfusions, are anemic, or who have dyshemoglobinemia. Performed By: #### L AB90 ####Event Marketing Intern: LESLEE HERNANDEZ ([phone])[facility]OSPITALKeyon LELOALL[place] ([facility])[address] [place] [address] IDNon 03-01-2024 IDN Normal [facility] IDN The patient is Moderately Stable - Low risk of patient condition declining or worsening The patient's goals for the shift include rest The clinical goals for the shift include pt education Normal [facility] Laboratory - Chemistry and C hemistry - challengeon 03-01-2024 Average glucose Estimated from glycated hemoglobin (Bld) [Mass/Vol] 97 mg/dL [facility] Laboratory - Hematology and Cell countson 03-01-2024 HbA1c (Bld) [Mass fraction] 5.0 % NINF - 5.7 % [facility] Comment on above: Normal less than 5.7 % Prediabetes 5.7% to 6.4% Diabetes 6.5% or higher --HgbA1C levels may not be accurate in patients who have renal disease, received recent blood transfusions, are anemic, or who have dyshemoglobinemia. No Panel Informationon 03-01 [facility] Nursing Noteon 03-01-2024 Nursing Note Discharge instructions given to patient and questions were addressed. Encouraged patient to follow up with cardiology and new PCP scheduled with Family Medicine. Normal [facility] Progress Noteon 03-01-2024 Progress Note Normal [facility] Progress Note Normal [facility] BASIC METABOLIC PANELon 09 Anion gap [Moles/Vol] 8 mmol/L Normal 3-13 [facility] Comment on above: Performed By: #### L AB15, LAB18, [id number] ####Event Marketing Intern: LESLEE HERNANDEZ ([id number])[facility] (SBHLAB)[address] Calcium [Mass/Vol] 8.8 mg/dL Normal 8.4-10.4 [facility] Comment on above: Performed By: #### Pedro AB15, LAB18, [id number] ####Event Marketing Intern: LESLEE HERNANDEZ ([id number])[facility] (SBHLAB)[address] [place] [address] [place] Chloride [Moles/Vol] 105 mmol/L Normal 98-107 [facility] Comment on above: Performed By: #### Pedro AB15, LAB18, [id number] ####Event Marketing Intern: LESLEE HERNANDEZ ([phone])[facility] (SB[facility]AB)[address] [place] [address] [place] CO2 [Moles/Vol] 24 mmol/L Normal 22-30 [facility] Comment on above: Performed By: #### L AB15, LAB18, [id number] ####Event Marketing Intern: LESLEE HERNANDEZ ([id number])[facility] (SBHLAB)[address] Creatinine [Mass/Vol] 1.58 mg/dL High 0.66-1.25 [facility] Comment on above: Performed By: #### L AB15, LAB18, [id number] ####Event Marketing Intern: LESLEE [phone])[facility]OSPITALKeyon KNOTTNEW MEXICO [facility] AT L[facility] VEGASN (SBHLAB)[address] GLOMERULAR FILTRATION RATE ML/MIN/1.73 SQ M.PREDICTED 54.3 mL/min/1.73m*2 Low >60.0 [facility] Comment on above: Result Comment: Calc ulation based on the Chronic Kidney Disease Epidemiology Collaboration (CKD-EPI) equation refit without adjustment for race Performed By: #### Pedro ABJoann, LAB18, [id number] ####Event Marketing Intern: LESLEE HERNANDEZ ([phone])[facility]ITALKey[facility] [place] (SBHLAB)[address] Glucose [Mass/Vol] 117 mg/dL High 70-100 [facility] Comment on above: Performed By: #### Pedro AB15, LAB18, [id number] ####Event Marketing Intern: LESLEE HERNANDEZ ([id number])[facility] (SBHLAB)[address] Potassium [Moles/Vol] 3.8 mmol/L Normal 3.5-5.1 [facility] Comment on above: Performed By: #### Pedro ORTEZ, LAB18, [id number] ####Event Marketing Intern: LESLEE HERNANDEZ ([id number])[facility]OS[facility]ITALKey[facility] [place] (SBHLAB)[address] Sodium [Moles/Vol] 136 mmol/L Normal 135-145 [facility] Comment on above: Performed By: #### L AB15, LAB18, [id number] ####Event Marketing Intern: LESLEE HERNANDEZ ([id number])[facility] (SBHLAB)[address] Urea nitrogen [Mass/Vol] 19 mg/dL Normal 9-20 [facility] Comment on above: Performed By: #### L AB15, LAB18, [id number] ####Event Marketing Intern: LESLEE HERNANDEZ ([phone])[facility] (SBHLAB)[address] Basic metabolic 1998 panelon 02-29-2024 Anion gap [Moles/Vol] 10 mmol/L 3 - 13 mmol/L [facility] Calcium [Mass/Vol] 9.1 mg/dL 8.4 - 10. 4 mg/dL [facility] Chloride [Moles/Vol] 104 mmol/L 98 - 10 7 mmol/L [facility] CO2 [Moles/Vol] 25 mmol/L 22 - 30 mmol/L [facility] Creatinine [Mass/Vol] 1.66 mg/dL High 0.66 - 1.25 mg/dL [facility] GFR/1.73 sq M.predicted (S/P/Bld) [Vol rate/Area] 51.2 mL/min Low - PINF [facility] Comment on above: Calculation based on the Chronic Kidney Disease Epidemiology Collaboration (CKD-EPI) equation refit without adjustment for race Glucose [Mass/Vol] 118 mg/dL High 70 - 100 mg/dL [facility] Interpretation and review of laboratory results Abnormal [facility] Potassium [Moles/Vol] 4.2 mmol/L 3.5 - 5.1 mmol/L [facility] Sodium [Moles/Vol] 139 mmol/L 135 - 145 mmol/L [facility] Urea nitrogen [Mass/Vol] 19 mg/dL 9 - 20 mg/dL [facility] Anion gap [Moles/Vol] 8 mmol/L 3 - 13 mmol/L [facility] Calcium [Mass/Vol] 8.8 mg/dL 8.4 - 10. 4 mg/dL [facility] Chloride [Moles/Vol] 105 mmol/L 98 - 10 7 mmol/L [facility] CO2 [Moles/Vol] 24 mmol/L 22 - 30 mmol/L [facility] Creatinine [Mass/Vol] 1.58 mg/dL High 0.66 - 1.25 mg/dL [facility] GFR/1.73 sq M.predicted (S/P/Bld) [Vol rate/Area] 54.3 mL/min Low - PINF [facility] Comment on above: Calculation based on the Chronic Kidney Disease Epidemiology Collaboration (CKD-EPI) equation refit without adjustment for race Glucose [Mass/Vol] 117 mg/dL High 70 - 100 mg/dL [facility] Interpretation and review of laboratory results Abnormal [facility] Potassium [Moles/Vol] 3.8 mmol/L 3.5 - 5.1 mmol/L [facility] Sodium [Moles/Vol] 136 mmol/L 135 - 145 mmol/L [facility] Urea nitrogen [Mass/Vol] 19 mg/dL 9 - 20 mg/dL [facility] CARECOORDon 02-29-2024 CARECOORD Normal [facility] Consulton 02-29-2024 Consult Normal [facility] IDNon 02-29-2024 IDN The patient is Moderately Stable - Low risk of patient condition declining or worsening The patient's goals for the shift include see cardiology The clinical goals for the shift include hemodynamically stable Normal [facility] LIPID PANELon 02-29-2024 Cholesterol [Mass/Vol] 172 mg/dL Normal <200 [facility] Comment on above: Performed By: #### L AB15, LAB18, [id number] ####Event Marketing Intern: LESLEE HERNANDEZ ([phone])[facility]ALMarg[facility] (SBHLAB)[address] Cholesterol in HDL [Mass/Vol] 28 mg/dL Low 40-60 [facility] Comment on above: Performed By: #### L AB15, LAB18, [id number] ####Event Marketing Intern: LESLEE HERNANDEZ ([phone])[facility] (SBHLAB)[address] Cholesterol.total/Chol esterol in HDL [Mass ratio] 6 {ratio} Normal [facility] Comment on above: Result Comment: Ref Range:< 3 Low Risk for CHD3-6 Mod Risk for CHD> 6 High Risk for CHD Performed By: #### L AB15, LAB18, [id number] ####Event Marketing Intern: LESLEE HERNANDEZ ([id number])[facility]ITALA BARBEFRAÍNN (SBHLAB)[address] LOW DENSITY LIPOPROTEIN 126 mg/dL High 0-<100 [facility] Comment on above: Performed By: #### L AB15, LAB18, [id number] ####Event Marketing Intern: LESLEE HERNANDEZ ([id number])[facility] (SBHLAB)[address] Triglyceride [Mass/Vol] 88 mg/dL Normal <150 [facility] Comment on above: Performed By: #### L AB15, LAB18, [id number] ####Event Marketing Intern: LESLEE HERNANDEZ ([id number])[facility]OSPITALKeyon MCFADDENMarguerite ([facility])[address] Laboratory - Chemistry and C hemistry - challengeon 02-29-2024 Troponin I.cardiac [Mass/Vol] 0.026 ng/mL NINF - 0.034 ng/mL [facility] Lipid 1996 panelon Cholesterol [Mass/Vol] 172 mg/dL NINF - 200 mg/dL [facility] Cholesterol in HDL [Mass/Vol] 28 mg/dL Low 40 - 60 mg/dL [facility] Cholesterol in LDL [Mass/Vol] 126 mg/dL High 0 - <100 [facility] Cholesterol.total/Chol esterol in HDL [Mass ratio] 6 {ratio} [facility] Comment on above: Ref Range: < 3 Low Risk for CHD 3-6 Mod Risk for CHD > 6 High Risk for CHD Interpretation and review of laboratory results Abnormal [facility] Triglyceride [Mass/Vol] 88 mg/dL NINF - 150 mg/dL [facility] Progress Noteon 02-29-2024 Progress Note Normal [facility] TROPONIN Ion 02-29-2024 Troponin I.cardiac [Mass/Vol] 0.026 ng/mL Normal <0.034 [facility] Comment on above: Result Comment: ALEJANDRO Aleman COMMENTS:Patients with high levels of Biotin oral intake (ie >5 mg/day) may have falsely decreased Troponin levels. Performed By: #### Pedro AB15, LAB18, [id number] ####Event Marketing Intern: LESLEE HERNANDEZ ([phone])[facility]ITALKey[facility] [place] (SBHLAB)[address] Troponin I.cardiac [Mass/Vol ]on 02-29-2024 Interpretation and review of laboratory results Normal [facility] Patients with high levels of Biotin oral intake (ie >5 mg/day) may have falsely decreased Troponin levels. [facility] US Heart Transthoracicon Ao Root Index 1.52 cm/m2 [facility] h Aortic Root 3.3 cm [facility] Aortic Sinus Valsalva 3.2 cm [facility] Aortic Sinus Valsalva Index 1.47 cm/m2 [facility] Ascending [facility] Index 1.52 cm/m2 [facility] AV Area by Peak Velocity 3.3 cm2 [facility] AV Area by VTI 2.9 cm2 [facility] th AV Mean Gradient 3 mmHg [facility] He alth AV Mean Velocity 0.9 m/s [facility] alth AV Peak Gradient 6 mmHg [facility] alth AV Peak Velocity 1.2 m/s [facility] alth AV Velocity Ratio 0.83 [facility] ealth AV VTI 19.1 cm [facility] EMILY/BSA Peak Velocity 1.5 cm2/m2 [facility] EMILY/BSA VTI 1.3 cm2/m2 [facility] E/E' Lateral 9.29 [facility] E/E' Ratio (Averaged) 9.29 [facility] E/E' Septal 9.29 [facility] EF BP 30 % Abnormal 55 - 100 % [facility] Est. RA Pressure 3 mmHg [facility] alth Fractional Shortening 2D 15 % 28 - 44 % [facility] Global Longitudinal Strain -7.1 % [facility] Interpretation and review of laboratory results Abnormal [facility] IVC Diameter 1.6 cm [facility] IVSd 1.2 cm Abnormal 0.6 - 1.0 cm [facility] LA Diameter 4.4 cm [facility] LA Size Index 2.03 cm/m2 [facility] LA Volume 2C 84 mL Abnormal 18 - 58 mL [facility] LA Volume 4C 78 mL Abnormal 18 - 58 mL [facility] LA Volume A/L 91 mL [facility] LA Volume BP 84 mL Abnormal 18 - 58 mL [facility] LA Volume Index 2C 39 mL/m2 Abnormal 16 - 34 mL/m2 [facility] LA Volume Index 4C 36 mL/m2 Abnormal 16 - 34 mL/m2 [facility] LA Volume Index A/L 42 mL/m2 16 - 34 mL/m2 [facility] LA Volume Index BP 39 ml/m2 Abnormal 16 - 34 ml/m2 [facility] LA/AO Root Ratio 1.33 [facility] alth LV E' Lateral Velocity 7 cm/s [facility] LV E' Septal Velocity 7 cm/s [facility] LV EDV A2C 236 mL [facility] LV EDV A4C 278 mL [facility] Health LV EDV BP 259 mL Abnormal 67 - 155 mL [facility] LV EDV Index A2C 109 mL/m2 [facility] He alth LV EDV Index A4C 128 mL/m2 [facility] He alth LV EDV Index BP 119 mL/m2 [facility] Hea lth LV Ejection Fraction A2C 25 % [facility] Health LV Ejection Fraction A4C 35 % [facility] Health LV ESV A2C 178 mL [facility] LV ESV A4C 181 mL [facility] LV ESV BP 182 mL Abnormal 22 - 58 mL [facility] Health LV ESV Index A2C 82 mL/m2 [facility] He alth LV ESV Index A4C 83 mL/m2 [facility] He alth LV ESV Index BP 84 mL/m2 [facility] Hea lth LV Mass 2D 350.2 g Abnormal 88 - 224 g [facility] Health LV Mass 2D Index 161.4 g/m2 Abnormal 49 - 115 g/m2 [facility] LV RWT Ratio 0.42 [facility] LVIDd 6.2 cm Abnormal 4.2 - 5.9 cm [facility] LVIDd Index 2.86 cm/m2 [facility] LVIDs 5.3 cm [facility] LVIDs Index 2.44 cm/m2 [facility] LVOT Area 3.8 cm2 [facility] LVOT Cardiac Output 5.2 liter/minute [facility] LVOT Diameter 2.2 cm [facility] h LVOT Mean Gradient 2 mmHg [facility] LVOT Peak Gradient 4 mmHg [facility] LVOT Peak Velocity 1.0 m/s [facility] LVOT Stroke Volume Index 25.4 mL/m2 [facility] LVOT SV 55.1 ml [facility] LVOT VTI 14.5 cm [facility] LVOT:AV VTI Index 0.76 [facility] ealth LVPWd 1.3 cm Abnormal 0.6 - 1.0 cm [facility] MR VTI 149.6 cm [facility] MV A Velocity 0.68 m/s [facility] h MV E Velocity 0.65 m/s [facility] MV E Wave Deceleration Time 225.7 ms [facility] MV E/A 0.96 [facility] MV Nyquist Velocity 36 cm/s [facility] MV Regurg Velocity PISA 5.2 m/s [facility] Health RA Area 4C 38.2 mL [facility] RA Area 4C 37.1 mL [facility] RV Basal Dimension 3.0 cm [facility] RV Free Wall Peak S' 16 cm/s [facility] RV Mid Dimension 1.7 cm [facility] He alth RVSP 23 mmHg [facility] Sinotubular Junction 2.8 cm [facility] TAPSE 2.5 cm 1.7 cm [facility] TR Max Velocity 2.25 m/s [facility] Sonny lth TR Peak Gradient 20 mmHg [facility] Sonny alth Left Ventricle: Left ventricle is mildly [...] no prior study available for comparison CV [facility] BASIC METABOLIC PANELon 08-3 Anion gap [Moles/Vol] 10 mmol/L Normal 3-13 [facility] Comment on above: Performed By: #### L AB747, LAB15, [id number] ####Event Marketing Intern: NICOLE BOWERS ([phone])[facility] KAMALJIT RITTMAN (SWRLAB)[address] [place] [address] [place] Calcium [Mass/Vol] 9.1 mg/dL Normal 8.4-10.4 [facility] Comment on above: Performed By: #### Perdo AB747, LAB15, [id number] ####Event Marketing Intern: NICOLE BOWERS ([phone])[facility] KAMALJIT RITTMAN (SWRLAB)[address] [place] [address] [place] Chloride [Moles/Vol] 104 mmol/L Normal 98-107 [facility] Comment on above: Performed By: #### L AB747, LAB15, [id number] ####Event Marketing Intern: NICOLE BOWERS ([phone])[facility] KAMALJIT RITTMAN (SWRLAB)[address] [place] [address] [place] CO2 [Moles/Vol] 25 mmol/L Normal 22-30 [facility] Comment on above: Performed By: #### L AB747, LAB15, [id number] ####Event Marketing Intern: NICOLE BOWERS ([phone])[facility] KAMALJIT RITTMAN (SWRLAB)[address] [place] [address] [place] Creatinine [Mass/Vol] 1.66 mg/dL High 0.66-1.25 [facility] Comment on above: Performed By: #### L AB747, LAB15, [id number] ####Event Marketing Intern: NICOLE BOWERS ([phone])[facility]ITAL[facility] MARI RITTMAN (SWRLAB)[address] [place] [address] [place] GLOMERULAR FILTRATION RATE ML/MIN/1.73 SQ M.PREDICTED 51.2 mL/min/1.73m*2 Low >60.0 [facility] Comment on above: Result Comment: Calc ulation based on the Chronic Kidney Disease Epidemiology Collaboration (CKD-EPI) equation refit without adjustment for race Performed By: #### L AB747, LAB15, [id number] ####Event Marketing Intern: NICOLE BOWERS ([phone])[facility]ITAL[facility] MARI RITTMAN (SWRLAB)[address] [place] [address] [place] Glucose [Mass/Vol] 118 mg/dL High 70-100 [facility] Comment on above: Performed By: #### Pedro NG, LAB15, [id number] ####Event Marketing Intern: NICOLE BOWERS ([phone])[facility] MARI RITTMAN (SWRLAB)[address] [place] [address] [place] Potassium [Moles/Vol] 4.2 mmol/L Normal 3.5-5.1 [facility] Comment on above: Performed By: #### L AB747, LAB15, [id number] ####Event Marketing Intern: NICOLE BOWERS ([phone])[facility] MARI RITTMAN (SWRLAB)[address] [place] [address] [place] Sodium [Moles/Vol] 139 mmol/L Normal 135-145 [facility] Comment on above: Performed By: #### L AB747, LAB15, [id number] ####Event Marketing Intern: NICOLE BOWERS ([phone])[facility] MARI RITTMAN (SWRLAB)[address] [place] [address] [place] Urea nitrogen [Mass/Vol] 19 mg/dL Normal 9-20 [facility] Comment on above: Performed By: #### L AB747, LAB15, [id number] ####Event Marketing Intern: NICOLE BOWERS ([phone])[facility]ENTERNELLY (SWRLAB)[address] CBC W Auto Differential pane l (Bld)on 02-28-2024 Basophils (Bld) [#/Vol] 0.0 10*3/uL 0.0 - 0.2 10*3/uL [facility] Basophils/100 WBC (Bld) 0.3 % 0.0 - 2.0 % [facility] Eosinophils (Bld) [#/Vol] 0.1 10*3/uL 0.0 - 0.5 10*3/uL [facility] Eosinophils/100 WBC (Bld) 2.0 % 0.0 - 6.0 % [facility] Erythrocyte distribution width (RBC) [Ratio] 11.7 % 11.5 - 15.0 % [facility] Hematocrit (Bld) [Volume fraction] 40.0 % 40.0 - 52.0 % [facility] Hemoglobin (Bld) [Mass/Vol] 13.5 g/dL 13.0 - 18.0 g/dL [facility] Immature granulocytes (Bld) [#/Vol] 0.0 10*3/uL NINF - 0.1 10*3/uL [facility] Immature granulocytes/100 WBC (Bld) 0.2 % 0.0 - 2.0 % [facility] Interpretation and review of laboratory results Abnormal [facility] Lymphocytes (Bld) [#/Vol] 1.7 10*3/uL 1.0 - 4.3 10*3/uL [facility] Lymphocytes/100 WBC (Bld) 26.3 % 15.0 - 45.0 % [facility] MCH (RBC) [Entitic mass] 31.1 pg 26.0 - 34.0 pg [facility] MCHC (RBC) [Mass/Vol] 33.8 % 30.5 - 36.0 % [facility] MCV (RBC) [Entitic vol] 92.2 fL 77.0 - 99.0 fL [facility] Monocytes (Bld) [#/Vol] 0.4 10*3/uL 0.0 - 0.9 10*3/uL [facility] Monocytes/100 WBC (Bld) 6.2 % 5.0 - 13.0 % [facility] Neutrophils (Bld) [#/Vol] 4.3 10*3/uL 1.8 - 7.5 10*3/uL [facility] Neutrophils/100 WBC (Bld) 65.0 % 38.0 - 82.0 % [facility] Nucleated RBC/100 WBC (Bld) [Ratio] 0.0 % [facility] Platelet mean volume (Bld) [Entitic vol] 9.3 fL 9.0 - 12.7 fL [facility] Comment on above: MPV is a calculated measurement using platelet volume ratio Platelets (Bld) [#/Vol] 279 10*3/uL 140 - 440 10*3/uL [facility] RBC (Bld) [#/Vol] 4.34 10*6/uL Low 4.40 - 5.9 0 10*6/uL [facility] WBC (Bld) [#/Vol] 6.6 10*3/uL 3.6 - 10.7 10*3/uL [facility] CBC WITH AUTO DIFFERENTIALon 02-28-2024 Basophils (Bld) [#/Vol] 0.0 10*3/uL Normal 0.0-0.2 [facility] Comment on above: Performed By: #### L [id number] ####Event Marketing Intern: NICOLE BOWERS ([phone])[facility] KAMALJIT [employer]TMAN (RLAB)[address] [place] [address] Basophils/100 WBC (Bld) 0.3 % Normal 0.0-2.0 [facility] Comment on above: Performed By: #### L [id number] ####Event Marketing Intern: NICOLE BOWERS ([phone])[facility] KAMALJIT [employer] (RLAB)[address] [place] [address] Eosinophils (Bld) [#/Vol] 0.1 10*3/uL Normal 0.0-0.5 [facility] Comment on above: Performed By: #### L [id number] ####Event Marketing Intern: NICOLE BOWERS ([phone])[facility] MARI RITTMAN (SWRLAB)[address] [place] [address] [place] Eosinophils/100 WBC (Bld) 2.0 % Normal 0.0-6.0 [facility] Comment on above: Performed By: #### L [id number] ####Event Marketing Intern: NICOLE BOWERS ([phone])[facility] MARI RITTMAN (SWRLAB)[address] [place] [address] Erythrocyte distribution width (RBC) [Ratio] 11.7 % Normal 11.5-15.0 [facility] Comment on above: Performed By: #### L [id number] ####Event Marketing Intern: NICOLE BOWERS ([phone])[facility] MARI RITTMAN (SWRLAB)[address] [place] [address] Hematocrit (Bld) [Volume fraction] 40.0 % Normal 40.0-52.0 [facility] Comment on above: Performed By: #### L [id number] ####Event Marketing Intern: NICOLE BOWERS ([phone])[facility] MARI RITTMAN (SWRLAB)[address] [place] [address] Hemoglobin (Bld) [Mass/Vol] 13.5 g/dL Normal 13.0-18.0 [facility] Comment on above: Performed By: #### L [id number] ####Event Marketing Intern: NICOLE BOWERS ([phone])[facility] MARI RITTMAN (SWRLAB)[address] [place] [address] IMMATURE GRANS % 0.2 % Normal 0.0-2.0 [facility] Comment on above: Performed By: #### L [id number] ####Event Marketing Intern: NICOLE BOWERS ([phone])[facility] MARI RITTMAN (SWRLAB)[address] [place] [address] IMMATURE GRANS ABSOLUTE 0.0 10*3/uL Normal <0.1 [facility] Comment on above: Performed By: #### L [id number] ####Event Marketing Intern: NICOLE BOWERS ([id number])[facility] MARI RITTMAN (SWRLAB)[address] [place] [address] Lymphocytes (Bld) [#/Vol] 1.7 10*3/uL Normal 1.0-4.3 [facility] Comment on above: Performed By: #### L [id number] ####Event Marketing Intern: NICOLE BOWERS ([phone])[facility] MARI RITTMAN (SWRLAB)[address] [place] [address] Lymphocytes/100 WBC (Bld) 26.3 % Normal 15.0-45.0 [facility] Comment on above: Performed By: #### L [id number] ####Event Marketing Intern: NICOLE BOWERS ([phone])[facility] MARI RITTMAN (SWRLAB)[address] [place] [address] MCH (RBC) [Entitic mass] 31.1 pg Normal 26.0-34.0 [facility] Comment on above: Performed By: #### L [id number] ####Event Marketing Intern: NICOLE BOWERS ([phone])[facility] MARI RITTMAN (SWRLAB)[address] [place] [address] MCHC 33.8 % Normal 30.5-36.0 [facility] Comment on above: Performed By: #### L [id number] ####Event Marketing Intern: NICOLE BOWERS ([phone])[facility] MARI RITTMAN (SWRLAB)[address] [place] [address] MCV (RBC) [Entitic vol] 92.2 fL Normal 77.0-99.0 [facility] Comment on above: Performed By: #### L [id number] ####Event Marketing Intern: NICOLE BOWERS ([phone])[facility] MARI RITTMAN (SWRLAB)[address] [place] [address] Monocytes (Bld) [#/Vol] 0.4 10*3/uL Normal 0.0-0.9 [facility] Comment on above: Performed By: #### L [id number] ####Event Marketing Intern: NICOLE BOWERS ([phone])[facility] KAMALJIT RITTMAN (SWRLAB)[address] [place] [address] [place] Monocytes/100 WBC (Bld) 6.2 % Normal 5.0-13.0 [facility] Comment on above: Performed By: #### L [id number] ####Event Marketing Intern: NICOLE BOWERS ([id number])[facility] KAMALJIT RITTMAN (SWRLAB)[address] [place] [address] [place] NEUTROPHILS ABSOLUTE 4.3 10*3/uL Normal 1.8-7.5 [facility] Comment on above: Performed By: #### L [id number] ####Event Marketing Intern: NICOLE BOWERS ([id number])[facility] MARI RITTMAN (SWRLAB)[address] [place] [address] [place] Neutrophils/100 WBC (Bld) 65.0 % Normal 38.0-82.0 [facility] Comment on above: Performed By: #### L [id number] ####Event Marketing Intern: NICOLE BOWERS ([phone])[facility] RODRIGESKAMALJIT RITTMAN (SWRLAB)[address] [place] [address] [place] NRBC 0.0 /100 WBCs Normal 0.0-2.0 [facility] Comment on above: Performed By: #### L [id number] ####Event Marketing Intern: NICOLE BOWERS ([phone])[facility] KAMALJIT RITTMAN (SWRLAB)[address] [place] [address] Platelet mean volume (Bld) [Entitic vol] 9.3 fL Normal 9.0-12.7 [facility] Comment on above: Result Comment: MPV is a calculated measurement using platelet volume ratio Performed By: #### L [id number] ####Event Marketing Intern: NICOLE BOWERS ([phone])[facility] KAMALJIT RITTMAN (SWRLAB)[address] Platelets (Bld) [#/Vol] 279 10*3/uL Normal 140-440 [facility] Comment on above: Performed By: #### Pedro [id number] ####Event Marketing Intern: NICOLE BOWERS ([phone])[facility] MARI RITTMAN (SWRLAB)[address] RBC (Bld) [#/Vol] 4.34 10*6/uL Low 4.40-5.90 [facility] Comment on above: Performed By: #### L [id number] ####Event Marketing Intern: NICOLE BOWERS ([phone])[facility] MARI RITTMAN (SWRLAB)[address] WBC (Bld) [#/Vol] 6.6 10*3/uL Normal 3.6-10.7 [facility] Comment on above: Performed By: #### Pedro [id number] ####Event Marketing Intern: NICOLE BOWERS ([id number])[facility] MAR[facility] RITTMAN (SWRLAB)[address] COMPREHENSIVE METABOLIC PANE Ming 02-28-2024 Albumin [Mass/Vol] 4.4 g/dL Normal 3.5-5.0 [facility] Comment on above: Performed By: #### Pedro AB17, [id number], [id number] ####Event Marketing Intern: NICOLE BOWERS ([id number])[facility] MARI RITTMAN (SWRLAB)[address] ALP [Catalytic activity/Vol] 83 U/L Normal 38-126 [facility] Comment on above: Performed By: #### L AB17, [id number], [id number] ####Event Marketing Intern: NICOLE BOWERS ([id number])[facility] MARI RITTMAN (SWRLAB)[address] ALT [Catalytic activity/Vol] 19 U/L Normal 0-49 [facility] Comment on above: Performed By: #### L AB17, [id number], [id number] ####Event Marketing Intern: NICOLE BOWERS ([phone])[facility] RODRIGESKAMALJIT RITTMAN (SWRLAB)[address] [place] [address] [place] Anion gap [Moles/Vol] 8 mmol/L Normal 3-13 [facility] Comment on above: Performed By: #### Pedro HONEYCUTT, [id number], [id number] ####Event Marketing Intern: NICOLE BOWERS ([id number])[facility] KAMALJIT RITTMAN (SWRLAB)[address] [place] [address] [place] AST [Catalytic activity/Vol] 39 U/L Normal 15-46 [facility] Comment on above: Performed By: #### Pedro HONEYCUTT, [id number], [id number] ####Event Marketing Intern: NICOLE BOWERS ([id number])[facility] MARI RITTMAN (SWRLAB)[address] [place] [address] [place] Bilirubin [Mass/Vol] 1.0 mg/dL Normal 0.2-1.3 [facility] Comment on above: Performed By: #### Pedro HONEYCUTT, [id number], [id number] ####Event Marketing Intern: NICOLE BOWERS ([phone])[facility] RODRIGESKAMALJIT RITTMAN (SWRLAB)[address] [place] [address] [place] Calcium [Mass/Vol] 8.8 mg/dL Normal 8.4-10.4 [facility] Comment on above: Performed By: #### Pedro HONEYCUTT, [id number], [id number] ####Event Marketing Intern: NICOLE BOWERS ([phone])[facility] RODRIGESKAMALJIT RITTMAN (SWRLAB)[address] [place] [address] [place] Chloride [Moles/Vol] 105 mmol/L Normal 98-107 [facility] Comment on above: Performed By: #### Pedro HONEYCUTT, [id number], [id number] ####Event Marketing Intern: NICOLE BOWERS ([phone])[facility] KAMALJIT RITTMAN (SWRLAB)[address] [place] [address] [place] CO2 [Moles/Vol] 25 mmol/L Normal 22-30 [facility] Comment on above: Performed By: #### Pedro HONEYCUTT, [id number], [id number] ####Event Marketing Intern: NICOLE BOWERS ([phone])[facility] MARI RITTMAN (SWRLAB)[address] Creatinine [Mass/Vol] 1.50 mg/dL High 0.66-1.25 [facility] Comment on above: Performed By: #### Pedro HONEYCUTT, [id number], [id number] ####Event Marketing Intern: NICOLE BOEWRS ([id number])[facility] MARI RITTMAN (SWRLAB)[address] [place] [address] [place] GLOMERULAR FILTRATION RATE ML/MIN/1.73 SQ M.PREDICTED 57.8 mL/min/1.73m*2 Low >60.0 [facility] Comment on above: Result Comment: Calc ulation based on the Chronic Kidney Disease Epidemiology Collaboration (CKD-EPI) equation refit without adjustment for race Performed By: #### Pedro HONEYCUTT, [id number], [id number] ####Event Marketing Intern: NICOLE BOWERS ([phone])[facility] MARI RITTMAN (SWRLAB)[address] [place] [address] [place] Glucose [Mass/Vol] 111 mg/dL High 70-100 [facility] Comment on above: Performed By: #### Pedro HONEYCUTT, [id number], [id number] ####Event Marketing Intern: NICOLE BOWERS ([id number])[facility] MARI RITTMAN (SWRLAB)[address] [place] [address] [place] Potassium [Moles/Vol] 4.3 mmol/L Normal 3.5-5.1 [facility] Comment on above: Performed By: #### Pedro JESSICA17, [id number], [id number] ####Event Marketing Intern: NICOLE BOWERS ([id number])[facility] MARI RITTMAN (SWRLAB)[address] [place] [address] [place] Protein [Mass/Vol] 7.8 g/dL Normal 6.3-8.2 [facility] Comment on above: Performed By: #### L AB17, [id number], [id number] ####Event Marketing Intern: NICOLE BOWERS ([id number])[facility] KAMALJIT RITTMAN (SWRLAB)[address] [place] [address] Sodium [Moles/Vol] 138 mmol/L Normal 135-145 [facility] Comment on above: Performed By: #### L AB17, [id number], [id number] ####Event Marketing Intern: NICOLE BOWERS ([id number])[facility]ITALKAMALJIT RITTMAN (SWRLAB)[address] [place] [address] Urea nitrogen [Mass/Vol] 20 mg/dL Normal 9-20 [facility] Comment on above: Performed By: #### L AB17, [id number], [id number] ####Event Marketing Intern: NICOLE BOWERS ([id number])[facility]PITALKAMALJIT RITTMAN (SWRLAB)[address] [place] [address] COVID-19, Flu A/B, and RSV C omboon 02-28-2024 Interpretation and review of laboratory results Normal [facility] CT CHEST ANGIOGRAM W AND/OR WO IV CONTRASTon 02-28-2024 CT CHEST ANGIOGRAM W AND/OR WO IV CONTRAST Normal [facility] CTA Chest vessels WO and W c ontrast Blossom 02-28-2024 1. Cardiomegaly. Pulmonary vascular congestion with infiltrates. Bilateral small pleural effusions, right greater than left. 2. Peribronchial wall thickening concerning for bronchiolitis. 3. No pulmonary artery embolus. 4. Small hiatal hernia. Report Dictated on Electronically Signed By: Kaitlin Goldsmith MD Electronically Signed Date/Time: 02/28/2024 7:57 PM [facility] Patient Name: CARLO MEDINA : 1980 Exam Date/Time: 02/28/2024 19:42 Procedure: CT CHEST [...] the upper abdomen is within normal limits. [facility] Kaitlin Goldsmith MD - 02/28/2024 Patient Name: CARLO MEDINA : 1980 [facility]#: [id number] Exam Date/Time: 02/28/2024 19:42 Procedure: [facility] CHEST [...] [facility] (narrative) [facility] Comprehensive metabolic 1998 panelon 02-28-2024 Albumin [Mass/Vol] 4.4 g/dL 3.5 - 5.0 g/dL [facility] ALP [Catalytic activity/Vol] 83 U/L 38 - 126 U/L [facility] ALT [Catalytic activity/Vol] 19 U/L 0 - 49 U/L [facility] Anion gap [Moles/Vol] 8 mmol/L 3 - 13 mmol/L [facility] AST [Catalytic activity/Vol] 39 U/L 15 - 46 U/L [facility] Bilirubin [Mass/Vol] 1.0 mg/dL 0.2 - 1 .3 mg/dL [facility] Calcium [Mass/Vol] 8.8 mg/dL 8.4 - 10. 4 mg/dL [facility] Chloride [Moles/Vol] 105 mmol/L 98 - 10 7 mmol/L [facility] CO2 [Moles/Vol] 25 mmol/L 22 - 30 mmol/L [facility] Creatinine [Mass/Vol] 1.50 mg/dL High 0.66 - 1.25 mg/dL [facility] GFR/1.73 sq M.predicted (S/P/Bld) [Vol rate/Area] 57.8 mL/min Low - PINF [facility] Comment on above: Calculation based on the Chronic Kidney Disease Epidemiology Collaboration (CKD-EPI) equation refit without adjustment for race Glucose [Mass/Vol] 111 mg/dL High 70 - 100 mg/dL [facility] Interpretation and review of laboratory results Abnormal [facility] Potassium [Moles/Vol] 4.3 mmol/L 3.5 - 5.1 mmol/L [facility] Protein [Mass/Vol] 7.8 g/dL 6.3 - 8.2 g/dL [facility] Sodium [Moles/Vol] 138 mmol/L 135 - 145 mmol/L [facility] Urea nitrogen [Mass/Vol] 20 mg/dL 9 - 20 mg/dL [facility] D-DIMER,QUANTITATIVEon 02-27 D-DIMER, INNOVANCE 1.45 mg/L High <0.50 [facility] Comment on above: Result Comment: ALEJANDRO Aleman COMMENTS:Innovance D-Dimer values of <0.50 mg/L FEU can be used in combination with a pre-test probability model (e.g. Well's) to exclude pulmonary embolism (PE) disease, as well as an aid in the diagnosis of deep vein thrombosis (DVT). Performed By: #### L [id number] ####Event Marketing Intern: NICOLE BOWERS ([id number])[facility]ENTERNE[facility] (SWLAB)[address] [place] [address] ECG 12-LEADon 02-28-2024 ECG 12-LEAD Normal [facility] ED Nursing Noteon 02-28-2024 ED Nursing Note Normal [facility] ED Nursing Note Report called to [facility] CRISTINE Townsend RN 02/28/242116 Normal [facility] ED Nursing Note Normal [facility] ED Provider Noteon ED Provider Note Normal [facility] Fibrin D-dimer FEU (PPP) [Ma ss/Vol]on 02-28-2024 Interpretation and review of laboratory results Abnormal [facility] D-Dimer values of <0.50 mg/L FEU can be used in combination with a pre-test probability model (e.g. Well's) to exclude pulmonary embolism (PE) disease, as well as an aid in the diagnosis of deep vein thrombosis (DVT). [facility] Laboratory - Chemistry and C hemistry - challengeon 02-28-2024 TSH Qn 1.375 m[IU]/L [facility] h Troponin I.cardiac [Mass/Vol] 0.019 ng/mL NINF - 0.034 ng/mL [facility] Troponin I.cardiac [Mass/Vol] 0.019 ng/mL NINF - 0.034 ng/mL [facility] Laboratory - Coagulationon 0 02-28-2024 Fibrin D-dimer FEU (PPP) [Mass/Vol] 1.45 mg/L High NINF - 0.50 mg/L [facility] Laboratory - Microbiology an d Antimicrobial susceptibilityon 02-28-2024 FLUAV RNA DEENA+probe Ql (Resp) Not detected Not Detected [facility] FLUBV RNA DEENA+probe Ql (Resp) Not detected Not Detected [facility] RSV RNA DEENA+probe Ql (Resp) Not detected Not Detected [facility] SARS-CoV-2 (COVID-19) RNA DEENA+probe Ql (Resp) Not detected Not Detected [facility] SARS-CoV-2 (COVID-19) RNA DEENA+probe Ql (Unsp spec) Methodology: real-time, RT-PCR The SARS-CoV-2, Flu A/B, and RSV Combo assay is intended for in vitro diagnostic use under the FDA Emergency Use Authorization (EUA). This test has not been FDA cleared or approved. In compliance with this authorization, please visit www.fda.gov/media/641 188/download or www.fda.gov/media/806 132/download to access the applicable information sheets. [facility] NT PRO BNPon 02-28-2024 Natriuretic peptide B (Bld) [Mass/Vol] 5170 pg/mL High <20-100 [facility] Comment on above: Performed By: #### L AB17, [id number], [id number] ####Event Marketing Intern: NICOLE BOWERS ([phone])[facility] FLOWERS (RLAB)[address] [place] [address] [place] Natriuretic peptide B [Mass/ Vol]on 02-28-2024 Interpretation and review of laboratory results Abnormal [facility] Natriuretic peptide B (Bld) [Mass/Vol] 5170 pg/mL High <20 - 100 [facility] No Panel Informationon 02-27 [facility] P [place] 59 degrees [facility] NM Interval 145 ms [facility] QRS [place] -16 degrees [facility] QRSD Interval 99 ms [facility] Interval 341 ms [facility] QTC Interval 469 ms [facility] T Wave [place] 124 degrees [facility] Vic Loaiza M D - 02/28/2024 [...] (COVID-19) RNA DEENA+probe Ql (Unsp spec) Normal [facility] Comment on above: Performed By: #### L [id number] ####Event Marketing Intern: NICOLE BOWERS ([phone])[facility] FLOWERS (SWRLAB)[address] [place] [address] [place] THYROID STIMULATING HORMONEo n 02-28-2024 THYROID STIMULATING HORMONE 1.375 uIU/mL Normal 0.465-4.680 [facility] Comment on above: Performed By: #### L [id number], [id number], [id number] ####Event Marketing Intern: NICOLE BOWERS ([id number])[facility] ALEXANDERAN (SWRLAB)[address] [place] [address] [place] TROPONIN Ion 02-28-2024 Troponin I.cardiac [Mass/Vol] 0.019 ng/mL Normal <0.034 [facility] Comment on above: Result Comment: ALEJANDRO R COMMENTS:Patients with high levels of Biotin oral intake (ie >5 mg/day) may have falsely decreased Troponin levels. Performed By: #### L [id number], [id number], [id number] ####Event Marketing Intern: NICOLE BOWERS ([phone])[facility] KAMALJIT V[employer] CorporationTMAN (SWRLAB)[address] [place] [address] TROPONIN, WITH SERIAL REFLEX on 02-28-2024 Troponin I.cardiac [Mass/Vol] 0.019 ng/mL Normal <0.034 [facility] Comment on above: Result Comment: ALEJANDRO Aleman COMMENTS:Patients with high levels of Biotin oral intake (ie >5 mg/day) may have falsely decreased Troponin levels. Performed By: #### L AB17, [id number], [id number] ####Event Marketing Intern: NICOLE BOWERS ([phone])[facility] Gig[employer]TMAN (SWRLAB)[address] [place] [address] TSH Qnon 02-28-2024 Interpretation and review of laboratory results Normal [facility] Troponin I.cardiac [Mass/Vol ]on 02-28-2024 Interpretation and review of laboratory results Normal [facility] Patients with high levels of Biotin oral intake (ie >5 mg/day) may have falsely decreased Troponin levels. [facility] Interpretation and review of laboratory results Normal [facility] Patients with high levels of Biotin oral intake (ie >5 mg/day) may have falsely decreased Troponin levels. [facility] Vital signson 02-28-2024 Heart rate 113 /min bpm [facility] XR Chest Single viewon 02-27 1. [...] endplate degenerative changes of the thoracic spine. [facility] Kaitlin Goldsmith MD - 02/28/2024 [facility] 1980 [id number] Exam Date/Time: 02/28/2024 18:41 Procedure: XR CHEST [...] Electronically Signed Date/Time: 02/28/2024 6:47 PM EDT [facility] Radiology Study observation (narrative) [facility] XR Chest Single viewOrdered By: Kaitlin Goldsmith on 02-28-2024 [facility] Work Phone: Vital Signs Date Time Vital Sign Value Performing Clinician Facility 2025 22:24-0400 Body temperature 97.1 [degF] Dr. Deborah Penaloza DO Work Phone: [facility] 2025 22:24-0400 Diastolic blood pressure 94 mm[Hg] Dr. Deborah Penaloza DO Work Phone: [phone] [place] [address] 2025 22:24-0400 Heart rate 106 /min Dr. Deborah Penaloza DO Work Phone: [phone] [place] [address] 2025 22:24-0400 Respiratory rate 23 /min Dr. Deborah Penaloza DO Work Phone: [phone] [place] [address] 2025 22:24-0400 SaO2% (BldA) [Mass fraction] 94 % Dr. Deborah Penaloza DO Work Phone: [phone] [place] [address] 2025 22:24-0400 Systolic blood pressure 113 mm[Hg] Dr. Deborah Penaloza DO Work Phone: [phone] [place] [address] 2025 22:00-0400 Inhaled oxygen flow rate 2 L/min Dr. Deborah Penaloza DO Work Phone: [phone] [place] [address] 2025 18:48-0400 Body mass index (BMI) [Ratio] 24.4 kg/m2 Dr. Deborah Penaloza DO Work Phone: 9(969)187-650380 [place] [address] 2025 18:48-0400 Body weight [address] Deborah Penaloza DO Work Phone: 8(930)000-687680 [place] [address] 2025 17:48-0400 Body height 185.[address] Deborah Penaloza DO Work Phone: 1(615)329-434580 [place] [address] 02-10-2025 14:45-0400 Body height 185.[address] Deborah Penaloza DO Work Phone: 6(939)295-124880 [place] [address] 02-10-2025 14:41-0400 Body mass index (BMI) [Ratio] 22.1 kg/m2 Dr. Deborah Penaloza DO Work Phone: 4(058)696-185180 [place] [address] 02-10-2025 14:41-0400 Body weight 76.[address] Deborah Penaloza DO Work Phone: 1(726)624-700880 [place] [address] 02-10-2025 14:41-0400 Diastolic blood pressure 70 mm[Hg] Dr. Deborah Penaloza DO Work Phone: 3(130)906-381248 [place] [address] 02-10-2025 14:41-0400 Heart rate 102 /min Dr. Deborah Penaloza DO Work Phone: 0(854)772-957180 [place] [address] 02-10-2025 14:41-0400 Respiratory rate 18 /min Dr. Deborah Penaloza DO Work Phone: 9(080)339-027580 [place] [address] 02-10-2025 14:41-0400 SaO2% (BldA) [Mass fraction] 95 % Dr. Deborah Penaloza DO Work Phone: 6(254)848-495780 [place] [address] 02-10-2025 14:41-0400 Systolic blood pressure 98 mm[Hg] Dr. Deborah Penaloza DO Work Phone: 4(695)375-779580 [place] [address] 01-29-2025 20:00-0400 Diastolic blood pressure 88 mm[Hg] Dr. Deborah Penaloza DO Work Phone: 0(159)028-140880 [place] [address] 01-29-2025 20:00-0400 Heart rate 98 /min Dr. Deborah Penaloza DO Work Phone: 2(400)160-540980 [place] [address] 01-29-2025 20:00-0400 Respiratory rate 25 /min Dr. Deborah Penaloza DO Work Phone: 3(633)387-854980 [place] [address] 01-29-2025 20:00-0400 SaO2% (BldA) [Mass fraction] 95 % Dr. Deborah Penaloza DO Work Phone: 9(838)725-210980 [place] [address] 01-29-2025 20:00-0400 Systolic blood pressure 104 mm[Hg] Dr. Deborah Penaloza DO Work Phone: 1(193)305-137480 [place] [address] 01-29-2025 15:24-0400 Body temperature 97 [degF] Dr. Deborah Penaloza DO Work Phone: 2(250)487-745380 [place] [address] 01-29-2025 09:34-0400 Inhaled oxygen flow rate 2 L/min Dr. Deborah Penaloza DO Work Phone: 3(427)512-478880 [place] [address] 01-29-2025 08:33-0400 Body mass index (BMI) [Ratio] 23 kg/m2 Dr. Deborah Penaloza DO Work Phone: 4(899)592-966780 [place] [address] 01-29-2025 08:33-0400 Body weight 79.[address] Deborah Penaloza DO Work Phone: 8(749)697-279280 [place] [address] 01-29-2025 07:49-0400 Body height 185.[address] Deborah Penaloza DO Work Phone: 2(147)732-443280 [place] [address] 01-10-2025 09:15-0400 Body temperature 98.2 [degF] Dr. Deborah Penaloza DO Work Phone: 8(156)137-339080 [place] [address] 01-10-2025 09:15-0400 Diastolic blood pressure 84 mm[Hg] Dr. Deborah Penaloza DO Work Phone: 0(153)851-841180 [place] [address] 01-10-2025 09:15-0400 Heart rate 53 /min Dr. Deborah Penaloza DO Work Phone: 2(408)565-009180 [place] [address] 01-10-2025 09:15-0400 Respiratory rate 17 /min Dr. Deborah Penaloza DO Work Phone: 9(658)250-302080 [place] [address] 01-10-2025 09:15-0400 SaO2% (BldA) [Mass fraction] 98 % Dr. Deborah Penaloza DO Work Phone: 1(809)141-426680 [place] [address] 01-10-2025 09:15-0400 Systolic blood pressure 109 mm[Hg] Dr. Deborah Penaloza DO Work Phone: 8(860)598-608680 [place] [address] 01-10-2025 05:37-0400 Diastolic blood pressure 80 mm[Hg] Dr. Deborah Penaloza DO Work Phone: 1(130)798-169480 [place] [address] 01-10-2025 05:37-0400 Systolic blood pressure 107 mm[Hg] Dr. Deborah Penaloza DO Work Phone: 3(200)247-495080 [place] [address] 01-10-2025 04:57-0400 Body mass index (BMI) [Ratio] 21.3 kg/m2 Dr. Deborah Penaloza DO Work Phone: 8(446)892-050048 [place] [address] 01-10-2025 04:57-0400 Body weight 73.[address] Deborah Penaloza DO Work Phone: 4(913)024-746980 [place] [address] 01-10-2025 03:15-0400 Body temperature 97.8 [degF] Dr. Deborah Penaloza DO Work Phone: 0(895)400-295548 [place] [address] 01-10-2025 03:15-0400 Heart rate 100 /min Dr. Deborah Penaloza DO Work Phone: 8(510)853-307280 [place] [address] 01-10-2025 03:15-0400 Respiratory rate 16 /min Dr. Deborah Penaloza DO Work Phone: 2(880)713-596280 [place] [address] 01-10-2025 03:15-0400 SaO2% (BldA) [Mass fraction] 100 % Dr. Deborah Penaloza DO Work Phone: 7(763)465-171980 [place] [address] 01-05-2025 14:36-0400 Body height 185.[address] Deborah Penaloza DO Work Phone: 0(517)841-125180 [place] [address] 01-04-2025 14:05-0400 Body temperature 98 [degF] Dr. Deborah Penaloza DO Work Phone: 2(529)899-526148 [place] [address] 01-04-2025 14:05-0400 Diastolic blood pressure 97 mm[Hg] Dr. Deborah Penaloza DO Work Phone: 0(296)987-452448 [place] [address] 01-04-2025 14:05-0400 Heart rate 53 /min Dr. Deborah Penaloza DO Work Phone: 0(961)097-500448 [place] [address] 01-04-2025 14:05-0400 Respiratory rate 23 /min Dr. Deborah Penaloza DO Work Phone: 0(915)259-837148 [place] [address] 01-04-2025 14:05-0400 SaO2% (BldA) [Mass fraction] 100 % Dr. Deborah Penaloza DO Work Phone: 1(754)816-398248 [place] [address] 01-04-2025 14:05-0400 Systolic blood pressure 126 mm[Hg] Dr. Deborah Penaloza DO Work Phone: [facility] 01-04-2025 14:00-0400 Inhaled oxygen flow rate 2 L/min Dr. Deborah Penaloza DO Work Phone: [facility] 01-04-2025 07:28-0400 Body height 185.[address] Deborah Penaloza DO Work Phone: [facility] 01-04-2025 07:28-0400 Body mass index (BMI) [Ratio] 23.9 kg/m2 Dr. Deborah Penaloza DO Work Phone: [facility] 01-04-2025 07:28-0400 Body weight 82.[address] Deborah Penaloza DO Work Phone: [facility] 10-26-2024 05:14-0400 Body temperature 99.9 [degF] Phoebe Sanderson MD Work Phone: [facility] 10-26-2024 05:14-0400 Diastolic blood pressure 78 mm[Hg] Phoebe Sanderson MD Work Phone: [facility] 10-26-2024 05:14-0400 Heart rate 102 /min Phoebe Sanderson MD Work Phone: [facility] 10-26-2024 05:14-0400 Respiratory rate 19 /min Phoebe Sanderson MD Work Phone: [facility] 10-26-2024 05:14-0400 SaO2% (BldA) [Mass fraction] 97 % Phoebe Sanderson MD Work Phone: [facility] 10-26-2024 05:14-0400 Systolic blood pressure 96 mm[Hg] Phoebe Sanderson MD Work Phone: [facility] 10-20-2024 22:38-0400 Heart rate 53 /min Phoebe Sanderson MD Work Phone: [facility] 10-20-2024 17:00-0400 Body mass index (BMI) [Ratio] 19.74 kg/m2 Phoebe Sanderson MD Work Phone: [facility] 10-20-2024 17:00-0400 Body weight 67.86 kg Phoebe Sanderson MD Work Phone: [facility] 10-18-2024 18:03-0400 Heart rate 117 /min Phoebe Sanderson MD Work Phone: [facility] 10-18-2024 05:18-0400 Body height 185.4 cm Phoebe Sanderson MD Work Phone: [facility] 10-13-2024 15:57-0400 Body temperature 98.4 [degF] Luis Eduardo Schiele DO Work Phone: [facility] 10-13-2024 15:57-0400 Diastolic blood pressure 77 mm[Hg] Luis Eduardo Schiele DO Work Phone: [facility] 10-13-2024 15:57-0400 Heart rate 98 /min Luis Eduardo Schiele DO Work Phone: [facility] 10-13-2024 15:57-0400 Respiratory rate 16 /min Luis Eduardo Schiele DO Work Phone: [facility] 10-13-2024 15:57-0400 SaO2% (BldA) [Mass fraction] 97 % Luise Duardo Schiele DO Work Phone: [facility] 10-13-2024 15:57-0400 Systolic blood pressure 103 mm[Hg] Luis Eduardo Schiele DO Work Phone: [facility] 10-06-2024 14:00-0400 Body temperature 97.7 [degF] Vargas Begr MD Work Phone: [facility] 10-06-2024 14:00-0400 Diastolic blood pressure 91 mm[Hg] Vargas Berg MD Work Phone: [facility] 10-06-2024 14:00-0400 Heart rate 137 /min Vargas Berg MD Work Phone: [facility] 10-06-2024 14:00-0400 Respiratory rate 18 /min Vargas Berg MD [facility] Phone[facility] 10-06-2024 14:00-0400 SaO2% (BldA) [Mass fraction] 99 % Vargas Berg MD Work Phone: [facility] 10-06-2024 14:00-0400 Systolic blood pressure 104 mm[Hg] Vargas Berg MD Work Phone: [facility] 10-06-2024 10:00-0400 Body mass index (BMI) [Ratio] 22.25 kg/m2 Vargas Berg MD Work Phone: [facility] 10-06-2024 10:00-0400 Body weight 76.5 kg Vargas Berg MD Work [facility] 10-02-2024 11:34-0400 Heart rate 112 /min Vargas Berg MD Work Phone[facility] 10-01-2024 19:45-0400 Body height 185.4 cm Vargas Berg MD Work Phone: [facility] 09-17-2024 17:43-0400 Diastolic blood pressure 85 mm[Hg] King Margocs DO Work Phone: [facility] 09-17-2024 17:43-0400 Heart rate 109 /min King Margocs DO Work Phone: [facility] 09-17-2024 17:43-0400 Respiratory rate 16 /min King Margocs DO Work Phone: [facility] 09-17-2024 17:43-0400 SaO2% (BldA) [Mass fraction] 99 % King Margocs DO Work Phone: [facility] 09-17-2024 17:43-0400 Systolic blood pressure 108 mm[Hg] King Margocs DO Work Phone: [facility] 08-25-2024 07:29-0500 Heart rate 110 /min King Brianffey DO Work Phone: [facility] 08-25-2024 06:09-0500 Respiratory rate 18 /min King Skiffey DO Work Phone: [employer] 08-25-2024 06:09-0500 SaO2% (BldA) [Mass fraction] 97 % King Schaffer DO Work Phone: [employer] 08-25-2024 06:08-0500 Diastolic blood pressure 84 mm[Hg] King Torresffey DO Work Phone: [employer] 08-25-2024 06:08-0500 Systolic blood pressure 102 mm[Hg] King Schaffer DO Work Phone: [employer] 08-25-2024 01:16-0500 Body temperature 97 [degF] King Schaffer DO Work Phone: [employer] 08-23-2024 07:25-0500 Heart rate 113 /min Joel Roa MD Work Phone: [employer] 08-23-2024 07:11-0500 Diastolic blood pressure 84 mm[Hg] Joel Roa MD Work Phone: [employer] 08-23-2024 07:11-0500 Respiratory rate 18 /min Joel Roa MD Work Phone: [employer] 08-23-2024 07:11-0500 SaO2% (BldA) [Mass fraction] 100 % Joel Roa MD Work Phone: [employer] 08-23-2024 07:11-0500 Systolic blood pressure 103 mm[Hg] Joel Roa MD Work Phone: [employer] 08-23-2024 05:33-0500 Body height 185.4 cm Joel Roa MD Work Phone: [employer] 08-23-2024 05:33-0500 Body mass index (BMI) [Ratio] 20.85 kg/m2 Joel Roa MD Work Phone: [employer] 08-23-2024 05:33-0500 Body temperature 97.59 [degF] Joel Roa MD Work Phone: [employer] 08-23-2024 05:33-0500 Body weight 71.67 kg Joel Roa MD Work Phone: [employer] 08-20-2024 10:52-0500 Body temperature 97.7 [degF] Joel Fernandes MD Work Phone: [employer] 08-20-2024 10:52-0500 Diastolic blood pressure 64 mm[Hg] Joel Fernandes MD Work Phone: [employer] 08-20-2024 10:52-0500 Heart rate 59 /min Joel Fernandes MD Work Phone: [employer] 08-20-2024 10:52-0500 Respiratory rate 14 /min Joel Fernandes MD Work Phone: [employer] 08-20-2024 10:52-0500 SaO2% (BldA) [Mass fraction] 96 % Joel Fernandes MD Work Phone: [employer] 08-20-2024 10:52-0500 Systolic blood pressure 95 mm[Hg] Joel Fernandes MD Work Phone: [facility] 08-20-2024 03:17-0500 Body mass index (BMI) [Ratio] 20.89 kg/m2 Joel Fernandes MD Work Phone: [employer] 08-20-2024 03:17-0500 Body weight 71.8 kg Joel Fernandes MD Work Phone: [employer] 08-15-2024 08:50-0500 Body height 185.4 cm Joel Fernandes MD Work Phone: [employer] 08-05-2024 08:18-0500 Diastolic blood pressure 89 mm[Hg] Dia Gaitan RN [employer] 08-05-2024 08:18-0500 Heart rate 58 /min Dia Gaitan RN [facility] 08-05-2024 08:18-0500 Respiratory rate 16 /min Dia Gaitan RN [facility] 08-05-2024 08:18-0500 SaO2% (BldA) [Mass fraction] 100 % Dia Gaitan RN [facility] 08-05-2024 08:18-0500 Systolic blood pressure 114 mm[Hg] Dia Gaitan RN [facility] 08-04-2024 23:07-0500 Body temperature 100.09 [degF] Dia Howegeovany EVANS [facility] 08-04-2024 10:02-0500 Body height 185.4 cm Sergei Astudillo MD Work Phone: [facility] 08-04-2024 10:02-0500 Body mass index (BMI) [Ratio] 22.03 kg/m2 Sergei Astudillo MD Work Phone: [facility] 08-04-2024 10:02-0500 Body weight 75.75 kg Sergei Astudillo MD Work Phone: [facility] 08-04-2024 10:02-0500 Diastolic blood pressure 82 mm[Hg] Sergei Astudillo MD Work Phone: [facility] 08-04-2024 10:02-0500 Heart rate 79 /min Sergei Astudillo MD Work Phone: [facility] 08-04-2024 10:02-0500 SaO2% (BldA) [Mass fraction] 97 % Sergei Astudillo MD Work Phone: [facility] 08-04-2024 10:02-0500 Systolic blood pressure 132 mm[Hg] Sergei Astudillo MD Work Phone: [facility] 07-30-2024 11:26-0500 Body temperature 97 [degF] Bertha Kylee DO Work Phone: [facility] 07-30-2024 11:26-0500 Diastolic blood pressure 84 mm[Hg] Bertha Kylee DO Work Phone: [facility] 07-30-2024 11:26-0500 Heart rate 56 /min Bertha Kylee DO Work Phone: [facility] 07-30-2024 11:26-0500 Respiratory rate 18 /min Bertha Kylee DO Work Phone: [facility] 07-30-2024 11:26-0500 SaO2% (BldA) [Mass fraction] 97 % Bertha Kylee DO Work Phone: [employer] 07-30-2024 11:26-0500 Systolic blood pressure 115 mm[Hg] Bertha Pichardo DO Work Phone: [employer] [facility] 07-30-2024 05:00-0500 Body mass index (BMI) [Ratio] 21.53 kg/m2 Bertha Pichardo DO Work Phone: [employer] [facility] 07-30-2024 05:00-0500 Body weight 74.03 kg Bertha Pichardo DO Work Phone: [facility] 07-21-2024 09:35-0500 Body height 185.4 cm Morgan Mimsk SURGICAL ORDERLY - NURSE ADVISOR Work Phone: [facility] 07-21-2024 09:35-0500 Body mass index (BMI) [Ratio] 24.96 kg/m2 Morgan Tolak SURGICAL ORDERLY - NURSE ADVISOR Work Phone: [facility] 07-21-2024 09:35-0500 Body weight 85.82 kg Morgan Tolak SURGICAL ORDERLY - NURSE ADVISOR Work Phone: [employer] [facility] 07-21-2024 09:35-0500 Diastolic blood pressure 98 mm[Hg] Morgan Mimsk SURGICAL ORDERLY - NURSE ADVISOR Work Phone: [facility] 07-21-2024 09:35-0500 Heart rate 104 /min Morgan Tolak SURGICAL ORDERLY - NURSE ADVISOR Work Phone: [employer] [facility] 07-21-2024 09:35-0500 SaO2% (BldA) [Mass fraction] 94 % Morgan Laila SURGICAL ORDERLY - NURSE ADVISOR Work Phone: [employer] [facility] 07-21-2024 09:35-0500 Systolic blood pressure 120 mm[Hg] Morgan Tolak SURGICAL ORDERLY - NURSE ADVISOR Work Phone: [employer] [facility] 07-16-2024 08:00-0500 Body temperature 97 [degF] ANGELO Kenny MD Work Phone: [employer] [facility] 07-16-2024 08:00-0500 Diastolic blood pressure 66 mm[Hg] ANGELO Kenny MD Work Phone: [facility] 07-16-2024 08:00-0500 Heart rate 88 /min ANGELO Kenny MD Work Phone: [facility] 07-16-2024 08:00-0500 Respiratory rate 18 /min ANGELO Kenny MD Work Phone: [facility] 07-16-2024 08:00-0500 SaO2% (BldA) [Mass fraction] 99 % ANGELO Kenny MD Work Phone: [facility] 07-16-2024 08:00-0500 Systolic blood pressure 99 mm[Hg] ANGELO Kenny MD Work Phone: [facility] 07-16-2024 06:16-0500 Body mass index (BMI) [Ratio] 23.71 kg/m2 ANGELO Kenny MD Work Phone: [facility] 07-16-2024 06:16-0500 Body weight 81.5 kg ANGELO Kenny MD Work Phone: [facility] 07-12-2024 17:13-0500 Body height 185.4 cm ANGELO Kenny MD Work Phone: [facility] 07-07-2024 12:57-0500 Body height 185.4 cm Alex Zhang MD Work Phone: [facility] 07-07-2024 12:57-0500 Body mass index (BMI) [Ratio] 23.41 kg/m2 Alex Zhang MD Work Phone: [facility] 07-07-2024 12:57-0500 Body weight 80.47 kg Alex Zhang MD Work Phone: [facility] 07-07-2024 12:57-0500 Diastolic blood pressure 88 mm[Hg] Alex Zhang MD Work Phone: [facility] 07-07-2024 12:57-0500 Heart rate 112 /min Alex Zhang MD Work Phone: [facility] 07-07-2024 12:57-0500 SaO2% (BldA) [Mass fraction] 94 % Alex Zhang MD Work Phone: [facility] 07-07-2024 12:57-0500 Systolic blood pressure 106 mm[Hg] Alex Zhang MD Work Phone: [facility] 07-05-2024 14:00-0500 Diastolic blood pressure 88 mm[Hg] Kishore Mudrakola DO Work Phone: [employer] [facility] 07-05-2024 14:00-0500 Heart rate 98 /min Kishore Mudrakola DO Work Phone: [employer] [facility] 07-05-2024 14:00-0500 Respiratory rate 16 /min Kishore Mudrakola DO Work Phone: [employer] [facility] 07-05-2024 14:00-0500 SaO2% (BldA) [Mass fraction] 97 % Kishore Mudrakola DO Work Phone: [employer] 07-05-2024 14:00-0500 Systolic blood pressure 124 mm[Hg] Kishore Mudrakola DO Work Phone: [employer] [facility] 07-05-2024 12:00-0500 Body temperature 98.2 [degF] Kishore Mudrakola DO Work Phone: [employer] [facility] 07-05-2024 08:00-0500 Body mass index (BMI) [Ratio] 22.48 kg/m2 Kishore Mudrakola DO Work Phone: [employer] [facility] 07-05-2024 08:00-0500 Body weight 77.29 kg Kishore Mudrakola DO Work Phone: [facility] 07-04-2024 06:00-0500 Body height 185.4 cm Kishore Mudrakola DO Work Phone: [facility] 07-01-2024 11:08-0500 Diastolic blood pressure 92 mm[Hg] Alex Zhang MD Work Phone: [facility] 07-01-2024 11:08-0500 Systolic blood pressure 125 mm[Hg] Alex Zhang MD Work Phone: [facility] 07-01-2024 10:54-0500 Body height 185.4 cm Alex Zhang MD Work Phone: [facility] 07-01-2024 10:54-0500 Body mass index (BMI) [Ratio] 23.09 kg/m2 Alex Zhang MD Work Phone: [facility] 07-01-2024 10:54-0500 Body weight 79.38 kg Alex Zhang MD Work Phone: [facility] 07-01-2024 10:54-0500 Heart rate 112 /min Alex Zhang MD Work Phone: [facility] 07-01-2024 10:54-0500 SaO2% (BldA) [Mass fraction] 98 % Alex Zhang MD Work Phone: [facility] 06-21-2024 13:25-0500 Heart rate 102 /min Joel Reyes MD Work Phone: [employer] 06-21-2024 13:25-0500 SaO2% (BldA) [Mass fraction] 98 % Joel Reyes MD Work Phone: [facility] 06-21-2024 13:24-0500 Body temperature 97.9 [degF] Joel Reyes MD Work Phone: [facility] 06-21-2024 13:24-0500 Diastolic blood pressure 83 mm[Hg] Joel Reyes MD Work Phone: [employer] 06-21-2024 13:24-0500 Respiratory rate 18 /min Joel Reyes MD Work Phone: [facility] 06-21-2024 13:24-0500 Systolic blood pressure 116 mm[Hg] Joel Reyes MD Work Phone: [facility] 06-20-2024 19:35-0500 Body mass index (BMI) [Ratio] 22.13 kg/m2 Joel Reyes MD Work Phone: [facility] 06-20-2024 19:35-0500 Body weight 76.07 kg Joel Reyes MD Work Phone: [facility] 06-15-2024 11:19-0500 Body height 185.4 cm Joel Reyes MD Work Phone: [facility] 06-08-2024 10:45-0500 Diastolic blood pressure 100 mm[Hg] Morgan Mimsk SURGICAL ORDERLY - NURSE ADVISOR Work Phone: [facility] 06-08-2024 10:45-0500 Systolic blood pressure 124 mm[Hg] Morgan Laila SURGICAL ORDERLY - NURSE ADVISOR Work Phone: [facility] 06-08-2024 10:32-0500 Body height 185.4 cm Morgan Laila SURGICAL ORDERLY - NURSE ADVISOR Work Phone: [facility] 06-08-2024 10:32-0500 Body mass index (BMI) [Ratio] 24.04 kg/m2 Morgan Tolak SURGICAL ORDERLY - NURSE ADVISOR Work Phone: [facility] 06-08-2024 10:32-0500 Body weight 82.64 kg Morgan Tolak SURGICAL ORDERLY - NURSE ADVISOR Work Phone: [facility] 06-08-2024 10:32-0500 Heart rate 117 /min Morgan Mimsk SURGICAL ORDERLY - NURSE ADVISOR Work Phone: [facility] 06-08-2024 10:32-0500 SaO2% (BldA) [Mass fraction] 98 % Morgan Mimsk SURGICAL ORDERLY - NURSE ADVISOR Work Phone: [facility] 06-03-2024 20:52-0500 Diastolic blood pressure 89 mm[Hg] Lewis Alexander DO Work Phone: [facility] 06-03-2024 20:52-0500 Heart rate 56 /min Lewis Alexander DO Work Phone: [facility] 06-03-2024 20:52-0500 Respiratory rate 18 /min Lewis Alexander DO Work Phone: [employer] 06-03-2024 20:52-0500 SaO2% (BldA) [Mass fraction] 99 % Lewis Alexander DO Work Phone: [employer] [facility] 06-03-2024 20:52-0500 Systolic blood pressure 124 mm[Hg] Lewis Alexander DO Work Phone: [employer] [facility] 06-03-2024 18:36-0500 Body temperature 97.3 [degF] Lewis Alexander DO Work Phone: [employer] 06-01-2024 15:44-0500 Body temperature 97.2 [degF] Izaiah Martins MD Work Phone: [employer] [facility] 06-01-2024 15:44-0500 Diastolic blood pressure 98 mm[Hg] Izaiah Martins MD Work Phone: [employer] [facility] 06-01-2024 15:44-0500 Heart rate 51 /min Izaiah Martins MD Work Phone: [employer] [facility] 06-01-2024 15:44-0500 Respiratory rate 16 /min Izaiah Martins MD Work Phone: [employer] 06-01-2024 15:44-0500 SaO2% (BldA) [Mass fraction] 97 % Izaiah Martins MD Work Phone: [employer] [facility] 06-01-2024 15:44-0500 Systolic blood pressure 130 mm[Hg] Izaiah Martins MD Work Phone: [employer] [facility] 05-29-2024 13:57-0500 Body height 185.4 cm Izaiah Martins MD Work Phone: [employer] [facility] 05-28-2024 14:41-0500 Body mass index (BMI) [Ratio] 23.75 kg/m2 Izaiah Martins MD Work Phone: [employer] 05-28-2024 14:41-0500 Body weight 81.65 kg Izaiah Martins MD Work Phone: [employer] 04-28-2024 10:29-0400 Body temperature 97.9 [degF] Juan Carlos Le MD Work Phone: [facility] 04-28-2024 10:29-0400 Heart rate 106 /min Juan Carlos Le MD Work Phone: [facility] 04-28-2024 10:29-0400 SaO2% (BldA) [Mass fraction] 95 % Juan Carlos Le MD Work Phone: [facility] 04-28-2024 10:14-0400 Diastolic blood pressure 92 mm[Hg] Juan Carlos Le MD Work Phone: [facility] 04-28-2024 10:14-0400 Systolic blood pressure 121 mm[Hg] Juan Carlos Le MD Work Phone: [facility] 04-28-2024 07:39-0400 Body mass index (BMI) [Ratio] 25.3 kg/m2 Juan Carlos Le MD Work Phone: [facility] 04-28-2024 07:39-0400 Body weight 87 kg Juan Carlos Le MD Work Phone: [facility] 04-28-2024 07:39-0400 Respiratory rate 16 /min Juan Carlos Le MD Work Phone: [facility] 04-28-2024 02:39-0400 Body height 185.4 cm Juan Carlos Le MD Work Phone: [facility] 03-07-2024 07:21-0400 Heart rate 88 /min Shane Stern MD Work Phone: [facility] 03-07-2024 07:21-0400 Respiratory rate 16 /min Shane Stern MD Work Phone: [facility] 03-07-2024 07:21-0400 SaO2% (BldA) [Mass fraction] 98 % Shane Stern MD Work Phone: [facility] 03-07-2024 07:21-0400 Body temperature 97.59 [degF] Shane Stern MD Work Phone: [facility] 03-07-2024 07:21-0400 Diastolic blood pressure 102 mm[Hg] Shane Stern MD Work Phone: [facility] 03-07-2024 07:21-0400 Systolic blood pressure 142 mm[Hg] Shane Stern MD Work Phone: [facility] 03-07-2024 03:10-0400 Body mass index (BMI) [Ratio] 24.59 kg/m2 Shane Stern MD Work Phone: [facility] 03-07-2024 03:10-0400 Body weight 84.55 kg Shane Stern MD Work Phone: [facility] 03-05-2024 21:50-0400 Body height 185.4 cm Shane Stern MD Work Phone: [facility] 03-01-2024 11:39-0400 Body temperature 96.91 [degF] Vic Loaiza MD Work Phone: [facility] 03-01-2024 11:39-0400 Diastolic blood pressure 107 mm[Hg] Vic Loaiza MD Work Phone: [facility] 03-01-2024 11:39-0400 Heart rate 93 /min Vic Loaiza MD Work Phone: [facility] 03-01-2024 11:39-0400 Respiratory rate 16 /min Vic Loaiza MD Work Phone: [facility] 03-01-2024 11:39-0400 SaO2% (BldA) [Mass fraction] 98 % Vic Loaiza MD Work Phone: [facility] 03-01-2024 11:39-0400 Systolic blood pressure 141 mm[Hg] Vic Loaiza MD Work Phone: [facility] 02-29-2024 09:30-0400 Body height 185.4 cm Vic Loaiza MD Work Phone: [facility] 02-29-2024 09:30-0400 Body mass index (BMI) [Ratio] 27.05 kg/m2 Vic Loaiza MD Work Phone: [facility] 02-29-2024 09:30-0400 Body weight 92.99 kg Vic Loaiza MD Work Phone: [facility] Encounters Encounter Date Encounter Type Care Provider Facility Start: 2025 Evaluation and manag ement of inpatient Dr. Eugene Alexandra DO -[facility] Work Phone: Start: 02-10-2025 End: 02-10-[address] Joel Berg MD -[facility] Work Phone: Start: 02-10-2025 End: 02-10-[address] Deborah Penaloza DO Work Phone: -[facility] Start: 01-29-2025 End: 02-01-2025 Evaluation and management of inpatient NIC LORENZANANTE ASHLEE Facility:[facility] Start: 01-29-2025 End: 01-29-2025 Emergency department patient visit Dr. Deborah Penaloza DO Work Phone: -Emergency Department Work Phone: Start: 01-24-2025 End: 01-24-2025 Patient Outreach Mallika Quiles [facility] Work Phone: Pharmacy Comment on above: Transition Of Care; Heart Failure (TCM Pharmacy-Hospital discharge 01/21/25) Start: 01-19-2025 End: 01-21-2025 Evaluation and management of inpatient MAGED SUNNY Facility:[facility] Start: 01-10-[address] Deborah sam DO Work Phone: -[facility] Start: 01-10-2025 Non-patient / Non-visit Dr. Lavon french MD -[facility] Start: 01-09-2025 Non-patient / Non-visit Dr. Anshul fitzpatrick DO [facility] Work Phone: Start: 01-08-2025 Non-patient / Non-visit Dr. Anshul Worley [facility] DO [facility] Work Phone: Start: 01-07-2025 Non-patient / Non-visit Dr. Anshul Worley [facility]patient [facility] Work Phone: Start: 01-06-2025 Non-patient / Non-visit Dr. Anshul Worley [facility]patient [facility] Work Phone: Start: 01-05-2025 Non-patient / Non-visit Dr. Anshul Worley [facility]patient [facility] Work Phone: Start: 01-04-2025 ambulatory No Primary Car e Physician Facility:[facility] Start: 01-04-2025 Non-patient / Non-visit Dr. Cass BOSTON -[facility] Start: 01-04-2025 Non-patient / Non-visit Dr. Anshul Worley [facility]patient [facility] Work Phone: Start: 01-04-2025 ambulatory No Primary Car e Physician Facility:[facility] Start: 01-04-2025 End: 01-10-2025 Evaluation and management of inpatient Dr. Anshul Lemus [facility] Work Phone: Start: 12-24-2024 End: 12-24-2024 Refill Yuval Gayle MD Work Phone: [facility] Comment on above: Refill Start: 12-17-2024 End: 12-17-2024 Letter encounter Yuval Gayle MD Work Phone: [facility] Cardiology Start: 12-13-2024 End: 12-13-2024 Refill Sigrid PICKARD Work Phone: [facility] Comment on above: Refill Start: 12-02-2024 End: 12-02-2024 Orders Only Yuval Gayle MD Work Phone: [facility] Start: 11-21-2024 End: 11-26-2024 Refill Yuval Gayle MD Work Phone: [facility] Comment on above: Refill Start: 10-27-2024 End: 11-01-2024 ambulatory Radha Flores RN [facility] Care Management/Patient Access Start: 10-27-2024 End: 11-01-2024 Follow-up encounter Radha Flores RN [facility] Care Management/Patient Access Comment on above: Hospital follow-up; Transitional Care Management (HF DC 10/26/24) Start: 10-25-2024 Evaluation and manag ement of inpatient JIM STOCKTON Facility:[facility] Start: 10-24-2024 End: 10-24-2024 Letter encounter Yuval Gayle MD Work Phone: [facility] Start: 10-18-2024 End: 10-26-2024 Evaluation and management of inpatient ANSHUL LAIRD Facility:[facility] Start: 10-17-2024 Emergency department patient visit UNKNOWN PROVIDER Facility:[facility] Start: 10-17-2024 End: 10-26-2024 Evaluation and management of inpatient Phoebe Sanderson MD Work Phone: [facility] Comment on above: [...] patient visit Luis Eduardo Bernal Work Phone: [facility] Emergency Department Comment on above: Cough (Pt presents t o ed dt chronic cough non productive dry at night, intermittent abd pain (mid lower). -n/v, +d. -cp ) Start: 10-13-2024 End: 10-13-2024 ambulatory Yuval Gayle MD Work Phone: [facility] Comment on above: [facility] Start: 10-07-2024 End: 10-08-2024 ambulatory Radha Flores RN [facility] Care Management/Patient Access Start: 10-07-2024 End: 10-08-2024 Follow-up encounter Radha Flores RN [facility] Care Management/Patient Access Comment on above: Hospital follow-up ( HF DC 10/06/24); Transitional Care Management Start: 10-02-2024 Evaluation and manag ement of inpatient UNKNOWN PROVIDER Facility:[facility] Start: 10-02-2024 Evaluation and manag ement of inpatient UNKNOWN PROVIDER Facility:[facility] Start: 09-30-2024 End: 10-06-2024 Evaluation and management of inpatient MIGUEL ANGEL BLACKMAN Facility:[facility] Start: 09-30-2024 End: 09-30-2024 ambulatory UNKNOWN PROVIDER Facility:[facility] Start: 09-30-2024 Emergency department patient visit UNKNOWN PROVIDER Facility:[facility] Start: 09-30-2024 End: 10-06-2024 Evaluation and management of inpatient Vargas Berg MD Work Phone: [address] Comment on above: HFrEF (heart failure [...] 09-30-2024 Emergency department patient visit UNKNOWN PROVIDER [facility] Start: 09-17-2024 End: 09-19-2024 ambulatory SHARI HIGGINS Facility:[id number] Start: 09-17-2024 End: 09-17-2024 Patient encounter procedure King Medina DO Work Phone: [facility] Comment on above: Chest pain, unspecif ied type (Primary Dx); Nausea vomiting and diarrhea Start: 09-17-2024 End: 09-18-2024 ambulatory UNKNOWN PROVIDER Facility:[facility] Start: 09-05-2024 End: 09-05-2024 Evaluation and management of inpatient YUVAL GAYLE [facility] Start: 09-04-2024 End: 09-04-2024 Evaluation and management of inpatient YUVAL GAYLE [facility] Start: 09-02-2024 End: 09-02-2024 Evaluation and management of inpatient LANCE ENNIS [facility] Start: 09-01-2024 End: 09-01-2024 Evaluation and management of inpatient UNKNOWN PROVIDER Facility:[facility] Start: 09-01-2024 End: 09-11-2024 Evaluation and management of inpatient IP CARDIOLOGY HEART FAILURE CONSULT Facility:[facility] Start: 09-01-2024 Evaluation and manag ement of inpatient UNKNOWN PROVIDER Facility:[facility] Start: 08-31-2024 Emergency department patient visit UNKNOWN PROVIDER Facility:[facility] Start: 08-31-2024 End: 08-31-2024 ambulatory [facility]ER [facility] Start: 08-27-2024 End: 08-27-2024 ambulatory UNKNOWN PROVIDER Facility:[facility] Start: 08-25-2024 End: 09-21-2024 Telephone encounter Dia Gaitan RN [facility] Cardiac Progressive Care Unit PCU 5W Comment on above: Heart Failure Outrea ch Start: 08-25-2024 End: 08-25-2024 Emergency department patient visit King Shaffer Winmattie DO Work Phone: [facility] ED Comment on above: Elevated serum creat inine (Primary Dx); Elevated brain natriuretic peptide (BNP) level Start: 08-23-2024 End: 08-23-2024 Telephone encounter Manuela White [facility] Work Phone: [facility] Comment on above: Other (HFdEF) Start: 08-23-2024 End: 08-23-2024 Emergency department patient visit Joel Roa MD Work Phone: [facility] ED Comment on above: Biventricular conges tive heart failure (HCC) (Primary Dx); Generalized abdominal pain; Chest pain, unspecified type Start: 08-22-2024 End: 08-23-2024 Emergency department patient visit NIC ROSADO Facility:[facility] Start: 08-12-2024 End: 08-12-2024 Telephone encounter Christopher Tai MD Work Phone: [facility] Start: 08-09-2024 End: 08-20-2024 Evaluation and management of inpatient Joel Fernandes MD Work Phone: [facility] Cardiac Progressive Care Unit PCU 5W Start: 08-05-2024 End: 08-05-2024 Refill Sergei [facility]studillo MD [facility] Start: 08-05-2024 End: 08-05-2024 Emergency department patient visit Dia Gaitan RN [facility] EMERGENCY DEPT Comment on above: SCHUYLER (acute kidney in jury) (HCC) (Primary Dx); Shortness of breath; Chest pain, unspecified type Start: 08-04-2024 End: 08-04-2024 Subsequent hospital visit by physician [facility] Non-Invasive Cardiology Comment on above: Arrived Start: 08-04-2024 End: 08-04-2024 Emergency department patient visit JAMAL DIA [facility] Start: 08-04-2024 End: 08-04-2024 Office outpatient visit 25 minutes Sergei Astudillo MD Work Phone: [facility] Comment on above: HFrEF (heart failure with reduced ejection fraction) (HCC) (Primary Dx); Essential hypertension; Acute deep vein thrombosis (DVT) of other specified vein of both lower extremities (HCC) Start: 08-04-2024 End: 08-04-2024 ambulatory SERGEI ASTUDILLO [facility] Start: 08-03-2024 End: 08-12-2024 Telephone encounter Dia Gaitan RN [facility] Cardiac Progressive Care Unit PCU 5W Start: 08-02-2024 End: 08-12-2024 Telephone encounter [facility] Comment on above: Hospital Follow-up Start: 07-23-2024 End: 07-30-2024 Evaluation and management of inpatient Bertha Pichardo DO Work Phone: [facility] Cardiac Progressive Care Unit PCU 2E Comment on above: Acute kidney injury (HCC) (Primary Dx); History of congestive heart failure; Bilateral lower extremity edema; SCHUYLER (acute kidney injury) (HCC) Start: 07-23-2024 End: 07-23-2024 Telephone encounter Morgan Xiao CNP Work Phone: [facility] Comment on above: Appointment Request Results (Worsening r enal function, hyperkalemia, heart failure) Start: 07-21-2024 End: 07-21-2024 ambulatory MORGAN ULLOA [facility] Start: 07-21-2024 End: 07-21-2024 Office outpatient visit 25 minutes Morgan Ulloa APRN - NURSE ADVISOR Work Phone: [facility] Comment on above: HFrEF (heart failure with reduced ejection fraction) (HCC) (Primary Dx); Acute HFrEF (heart failure with reduced ejection fraction) (HCC); Essential hypertension; Stage 3a chronic kidney disease (HCC); Noncompliance Start: 07-19-2024 End: 07-20-2024 Telephone encounter Kaitlin Gonzalez LPN [facility] Comment on above: Hospital Follow-up Start: 07-16-2024 End: 07-16-2024 Orders Only Luma Joy APRN - NURSE ADVISOR Work Phone: [facility] Comment on above: Chronic systolic hea rt failure (HCC) (Primary Dx) Start: 07-13-2024 End: 07-13-2024 Emergency department patient visit JAMAL DIA [facility] Start: 07-11-2024 End: 07-16-2024 Evaluation and management of inpatient J Melita Kenny MD Work Phone: [facility] Cardiac Progressive Care Unit PCU 2E Comment [...] 25 minutes Alex Zhang MD Work Phone: [facility] Comment on above: Acute systolic heart failure (HCC) (Primary Dx); Essential hypertension; Chronic systolic heart failure (HCC); Chronic kidney disease, unspecified CKD stage Start: 07-07-2024 End: 07-07-2024 ambulatory [facility] Start: 07-03-2024 End: 07-05-2024 Evaluation and management of inpatient Kishore Alonso DO Work Phone: [facility] Cardiac Thoracic Vascular Intensive Care Unit CTV ICU T1 Comment on above: Acute kidney injury superimposed on CKD (HCC) (HCC) (Primary Dx); Transaminitis; History of CHF (congestive heart failure); HFrEF (heart failure with reduced ejection fraction) (HCC) Start: 07-01-2024 End: 07-01-2024 ambulatory [facility] Start: 07-01-2024 End: 07-01-2024 Office outpatient visit 25 minutes Alex Zhang MD Work Phone: [facility] Comment on above: Chronic systolic hea rt failure (HCC) (Primary Dx); Essential hypertension; Chronic kidney disease, unspecified CKD stage Start: 06-24-2024 End: 06-24-2024 Telephone encounter Kaitlin Gonzalez LPN [facility] Comment on above: Hospital Follow-up Start: 06-22-2024 End: 06-24-2024 Telephone encounter Kaitlin Gonzalez LPN [facility] Comment on above: Hospital Follow-up Start: 06-13-2024 End: 06-21-2024 Evaluation and management of inpatient Joel Reyes MD Work Phone: [facility] Cardiac Progressive Care Unit PCU 2E Comment on above: Acute exacerbation o f chronic heart failure (HCC) (Primary Dx); Leg swelling; Elevated liver enzymes; Essential hypertension; Shortness of breath; Stage 3b chronic kidney disease (HCC); Pulmonary vascular congestion Start: 06-10-2024 End: 06-10-2024 Telephone encounter Morgan Ulloa APRN - NURSE ADVISOR Work Phone: [facility] Comment on above: Other Start: 06-08-2024 End: 06-08-2024 ambulatory [facility] Start: 06-08-2024 End: 06-08-2024 ambulatory [facility] Start: 06-08-2024 End: 06-08-2024 Office outpatient visit 25 minutes Morgan Ulloa SURGICAL ORDERLY - NURSE ADVISOR Work Phone: [facility] Comment on above: Essential hypertensi on (Primary Dx); Congestive heart failure, unspecified HF chronicity, unspecified heart failure type (HCC); Elevated liver enzymes; Chronic kidney disease, unspecified CKD stage Start: 06-07-2024 End: 06-07-2024 Telephone encounter Jia Victor PA-C Work Phone: [facility] Central Scheduling Comment on above: Other (Scheduling ) Start: 06-03-2024 End: 06-03-2024 Emergency department patient visit Lewis Alexander Work Phone: [facility] ED Comment on above: Edema of left lower extremity (Primary Dx) Start: 06-03-2024 End: 06-11-2024 Telephone encounter Kaitlin Gonzalez LPN [facility] Clinical Communication Comment on above: Hospital Follow-up Start: 06-02-2024 End: 06-07-2024 Telephone encounter Morgan Ulloa APRN - NURSE ADVISOR Work Phone: [facility] Comment on above: Other (Returning alesia l) Start: 05-30-2024 End: 06-07-2024 Telephone encounter Lizzette Burger SURGICAL ORDERLY - NURSE ADVISOR Work Phone: [facility] Cardiology - Shonna Mann Comment on above: Appointment Request Start: 05-28-2024 End: 06-01-2024 Evaluation and management of inpatient Izaiah Martins MD Work Phone: [facility] Cardiac Progressive Care Unit PCU 2E Comment on above: Metabolic acidosis ( Primary Dx); HFrEF (heart failure with reduced ejection fraction) (HCC); Acute cholecystitis without calculus Start: 05-05-2024 End: 05-31-2024 Telephone encounter Dia Gaitan RN [facility] Cardiac Progressive Care Unit PCU 5W Comment on above: Care Coordination Start: 04-30-2024 End: 05-11-2024 Telephone encounter Sergei Astudillo MD Work Phone: [facility] Comment on above: Chest Pain Start: 04-29-2024 End: 04-29-2024 Telephone encounter Dia Gaitna RN [facility] Cardiac Progressive Care Unit PCU 5W Comment on above: Care Coordination Start: 04-28-2024 End: 04-28-2024 Subsequent hospital visit by physician [facility] [address] Exam Room [address] [facility] [address] Comment on above: Arrived Start: 04-28-2024 End: 04-28-2024 Emergency department patient visit JUAN CARLOS LE [facility] Start: 04-28-2024 End: 04-28-2024 ambulatory ALONZO AGUILAR [facility] Start: 04-28-2024 End: 04-28-2024 Subsequent hospital visit by physician Kamaljit Ecg [facility] Stress Comment on above: Arrived Start: 04-28-2024 End: 04-28-2024 Emergency department patient visit Juan Carlos Le MD Work Phone: [facility] Clinical Decision Unit CDU Comment on above: Pulmonary vascular c ongestion (Primary Dx); Chest pain, unspecified type; Acute cough; Sore throat; Positive D dimer; Congestive heart failure, unspecified HF chronicity, unspecified heart failure type (HCC); Orthopnea; Short of breath on exertion Start: 04-27-2024 End: 04-27-2024 Telephone encounter Dia Gaitan RN [facility] Cardiac Progressive Care Unit PCU 5W Comment on above: Care Coordination Ou durgajuan Start: 03-16-2024 End: 03-17-2024 Telephone encounter Jeffrey Conklin MD Work Phone: [facility] Cardiology - [place] Comment on above: Med Management Start: 03-08-2024 End: 03-16-2024 Telephone encounter Dia Gaitan RN [facility] Cardiac Progressive Care Unit PCU 5W Comment on above: Care Coordination Start: 03-05-2024 End: 03-05-2024 [facility] Start: 03-05-2024 End: 03-05-2024 Subsequent hospital visit by physician [facility] Exam Room [address] [facility] [address] Comment on above: Arrived Start: 03-05-2024 End: 03-05-2024 Subsequent hospital visit by physician [facility] Xr Portable [facility] Radiology Comment on above: Arrived Start: 03-05-2024 End: 03-05-2024 Emergency department patient visit SHANE [facility] Start: 03-05-2024 End: 03-07-2024 Evaluation and management of inpatient Shane Stern MD Work Phone: [facility] Cardiac Progressive Care Unit PCU 2E Comment on above: Shortness of breath (Primary Dx); Acute on chronic congestive heart failure, unspecified heart failure type (HCC); Hypoxia; Pleural effusion Start: 03-02-2024 End: 03-04-2024 Telephone encounter Kaitlin Gonzalez LPN [facility] Clinical Communication Comment on above: Hospital Follow-up Start: 02-28-2024 End: 02-28-2024 Subsequent hospital visit by physician [facility] Exam Room [address] [facility] [address] Comment on above: Arrived Start: 02-28-2024 End: 02-28-2024 Emergency department patient visit JUAN CARLOS R BUNNY [facility] Start: 02-28-2024 End: 03-01-2024 Evaluation and management of inpatient Vic Loaiza MD Work Phone: [facility] Cardiac Progressive Care Unit PCU 2E Comment on above: Shortness of breath (Primary Dx); Congestive heart failure, unspecified HF chronicity, unspecified heart failure type (HCC); Positive D dimer; Chest pain, unspecified type; Hypertension, unspecified type Procedures Date Procedure Procedure Detail Performing Clinician Start: 2025 CT of abdomen and pe lvis without contrast Dr. Deborah Penaloza DO Work Phone: Start: 2025 Urnls dip stick/tabl et reagent auto microscopy Dr. Deborah Penaloza DO Work Phone: Start: 2025 X-ray of chest, PA a nd lateral views Dr. Deborah Penaloza DO Work Phone: Start: [address] Deborah Penaloza DO Work Phone: Start: 2025 SARS-CoV-2, Influenz a & RSV (PCR) Dr. Deborah Penaloza DO Work Phone: Start: 01-29-[address] Faby [...] Phone: Start: 01-04-[address] Debroah Penaloza DO Work Phone: Start: 01-04-[address] Deborah Penaloza DO Work Phone: Start: 01-04-2025 X-ray of chest, PA a nd lateral views Dr. Deborah Penaloza DO Work Phone: Start: 10-25-2024 Radiologic exam ches t single view Anshul Laird SURGICAL ORDERLY-NURSE ADVISOR Work Phone: Start: 10-25-2024 Assay of magnesium Raghu Mckeon SURGICAL ORDERLY-NURSE ADVISOR Work Phone: Start: 10-25-2024 Hepatic function panel Leatha Mckeon SURGICAL ORDERLY-NURSE ADVISOR Work Phone: Start: 10-21-2024 Assay of magnesium Raghu Mckeon SURGICAL ORDERLY-NURSE ADVISOR Work Phone: Start: 10-21-2024 Hepatic function panel Leatha Mckeon SURGICAL ORDERLY-NURSE ADVISOR Work Phone: Start: 10-20-2024 Assay of lactate Larry Myers DO Work Phone: Start: 10-20-2024 Hepatic function panel Leatha Mckeon SURGICAL ORDERLY-NURSE ADVISOR Work Phone: Start: 10-20-2024 Ecg routine ecg w/le ast 12 lds trcg only w/o i&r Leatha Mckeon SURGICAL ORDERLY-NURSE ADVISOR Work Phone: Start: 10-18-2024 Smr prim src [...] - S polly or Plasma Mallika Quiles [facility] Work Phone: Start: 09-30-2024 Assay of lactate [...] Assay of troponin quantitative Angel Luis Mejia SURGICAL ORDERLY - NURSE ADVISOR Work Phone: Start: 08-05-2024 Ecg routine ecg w/le ast 12 lds trcg only w/o i&r Ashtyn Miles SURGICAL ORDERLY - NURSE ADVISOR Work Phone: Start: 08-05-2024 Basic metabolic pane l calcium total Angel Luis Mejia SURGICAL ORDERLY - NURSE ADVISOR Work Phone: Start: 08-05-2024 Radiologic exam ches t 2 views Angel Luis Mejia SURGICAL ORDERLY - NURSE ADVISOR Work Phone: Start: 08-04-2024 Ecg routine ecg w/le ast 12 lds trcg only w/o i&r Jamal Dia MD Work Phone: Start: 08-04-2024 Follow-up visit JAMAL HDZ Start: 07-30-2024 Basic metabolic pane l calcium total Lilibethkeyon Anguianos SURGICAL ORDERLY - NURSE ADVISOR Work Phone: Start: 07-29-2024 Comprehensive metabo lic panel Berenice Rosenthal SURGICAL ORDERLY - NURSE ADVISOR Work Phone: Start: 07-28-2024 Comprehensive metabo lic panel Berenice Rosenthal SURGICAL ORDERLY - NURSE ADVISOR Work Phone: Start: 07-27-2024 Comprehensive metabo lic panel Berenice Varela Ariadna SURGICAL ORDERLY - NURSE ADVISOR Work Phone: Start: 07-26-2024 Comprehensive metabo lic panel Berenice Varela Ariadna SURGICAL ORDERLY - NURSE ADVISOR Work Phone: Start: 07-24-2024 End: 07-24-2024 Basic metabolic panel calcium total Rafa Earl [facility] Work Phone: Start: 07-23-2024 Assay of thyroid [...] exam abdo men 1 view Lilibeth Huber SURGICAL ORDERLY - NURSE ADVISOR Work Phone: Start: 07-16-2024 Comprehensive metabo lic panel Lilibeth Huber SURGICAL ORDERLY - NURSE ADVISOR Work Phone: Start: 07-15-2024 Basic metabolic pane l calcium total Rafa Earl [facility] Work Phone: Start: 07-14-2024 Comprehensive metabo lic panel Rafa Samuel MD Work Phone: Start: 07-13-2024 Ecg routine ecg w/le ast 12 lds trcg only w/o i&r Sherri Jeter MD Work Phone: Start: 07-13-2024 Basic metabolic pane l calcium total Rafa Earl [facility] Work Phone: Start: 07-12-2024 Basic metabolic pane l calcium total Rafa Earl [facility] Work Phone: Start: 07-12-2024 Comprehensive metabo lic panel Rafa Samuel MD Work Phone: Start: 07-12-2024 End: 07-12-2024 Assay of thyroid stimulating hormone tsh Rafa Samuel MD Work Phone: Start: 07-11-2024 Ct abdomen & pelvis w/contrast material Maritza Jones DO Work Phone: Start: 07-11-2024 Ecg routine ecg w/le ast 12 lds trcg only w/o i&r J Melita Kenny MD Work Phone: Start: 07-11-2024 End: [...] Work Phone: Start: 07-07-2024 Follow-up visit JAMAL SNYDERELL Start: 07-04-2024 End: 07-04-2024 Basic metabolic panel calcium total Roopa Natasha-Orlando DO Work Phone: Start: 07-04-2024 Comprehensive metabo lic panel Saif-Ward Shantal DO Work Phone: Start: 07-03-2024 Creatinine [...] Radiologic exam ches t single view Meek Jacquesis PA-C Work Phone: Start: 07-03-2024 Ecg routine ecg w/le ast 12 lds trcg only w/o i&r Kishoremg Alonso DO Work Phone: Start: 07-01-2024 Ecg routine ecg w/le ast 12 lds w/i&r Alex Zhang MD Work Phone: Start: 07-01-2024 Follow-up visit JAMAL HDZ Start: 06-20-2024 Basic metabolic pane l calcium total Sergei Shayla DO Work Phone: Start: 06-19-2024 Radiologic exam ches t 2 views Angel Luis Lassiter MD Work Phone: Start: 06-18-2024 Basic metabolic pane l calcium total Serg Celaya MD Work Phone: Start: 06-17-2024 Ecg routine ecg w/le ast 12 lds trcg only w/o i&r Sherri Jeter MD Work Phone: Start: 06-17-2024 Cardiac catheterizat ion study Gaby Marcano [facility] Work Phone: Start: 06-17-2024 End: 06-17-2024 POCT O2 SATURATION Sergei Mcguire DO Work Phone: Start: 06-16-2024 Basic metabolic pane l calcium total Maritza Linn [facility] Work Phone: Start: 06-15-2024 Echo tthrc r-t 2d w/wom-mode compl spec&colr d Angel Luis Morales MD Work Phone: Start: 06-15-2024 Chloride urine Maritza Linn [facility] Work Phone: Start: 06-15-2024 Urinalysis complete panel - Urine Maritza Linn [facility] Work Phone: Start: 06-15-2024 Urine albumin quantitative Maritza Linn [facility] Work Phone: Start: 06-15-2024 Urnls dip stick/tabl et rgnt auto w/o microscopy Maritza Linn [facility] Work Phone: Start: 06-15-2024 Comprehensive metabo lic [...] 06-13-2024 Comprehensive metabo lic panel Jono Dubois DO Work Phone: Start: 06-13-2024 Radiologic exam ches t single view Jono Dubois DO Work Phone: Start: 06-13-2024 Ecg routine ecg w/le ast 12 lds trcg only w/o i&r Jono Dubois DO Work Phone: Start: 06-08-2024 Basic metabolic pane l calcium total Morgan Ulloa SURGICAL ORDERLY - NURSE ADVISOR Work Phone: Start: 06-08-2024 Ecg routine ecg w/le ast 12 lds trcg only w/o i&r Sergei Astudillo MD Work Phone: Start: 06-08-2024 Follow-up visit JAMAL HDZ Start: 06-01-2024 Comprehensive metabo lic panel Mary Ellen Brito MD Work Phone: Start: 06-01-2024 Mri abdomen w/o cont rast material Anna Cheney PA Work Phone: Start: 05-31-2024 Us abdominal real ti me w/image documentation Lizzette Burger SURGICAL ORDERLY - NURSE ADVISOR Work Phone: Start: 05-30-2024 End: 05-30-2024 Comprehensive metabolic panel Mary Ellen Brito MD Work Phone: Start: 05-29-2024 Us retroperitoneal r eal time w/image complete Maritza Linn SURGICAL ORDERLY - NURSE ADVISOR Work Phone: Start: 05-29-2024 Comprehensive metabo lic panel Mary Ellen Brito MD Work Phone: Start: 05-28-2024 Chloride urine Maritza Linn SURGICAL ORDERLY - NURSE ADVISOR Work Phone: Start: 05-28-2024 Urinalysis complete panel - Urine Maritza Linn SURGICAL ORDERLY [facility] Work Phone: Start: 05-28-2024 Urnls dip stick/tabl et reagent auto microscopy Maritza Linn SURGICAL ORDERLY [facility] Work Phone: Start: 05-28-2024 Basic metabolic pane l calcium total Maritza Linn SURGICAL ORDERLY [facility] Work Phone: Start: 05-28-2024 Radiologic exam [...] emsa stain bct fungi/cell Thapasya S Rein SURGICAL ORDERLY - [facility] Work Phone: Start: 04-28-2024 Ecg routine ecg w/le ast 12 lds trcg only w/o i&r Alonzo Aguilar MD Work Phone: Start: 04-28-2024 Assay of troponin quantitative Thapasya S Rein SURGICAL ORDERLY - [facility] Work Phone: Start: 04-28-2024 Iaadiadoo not otherw ise specified Thapasya S Rein SURGICAL ORDERLY - [facility] Work Phone: Start: 04-28-2024 Assay of troponin quantitative Juan Carlos Le MD Work Phone: Start: 04-28-2024 Ct angiography chest w/contrast/noncontrast Juan Carlos Le MD Work Phone: Start: 04-28-2024 Radiologic exam ches t 2 views Juan Carlos eL MD Work Phone: Start: 04-28-2024 Iadna streptococcus group a amplified probe tq Juan Carlos Le MD Work Phone: Start: 04-28-2024 Respiratory pathogen s DNA and RNA panel - Nasopharynx by DEENA with non-probe detection Thapasya S Rein SURGICAL ORDERLY - NURSE ADVISOR Work Phone: Start: 04-28-2024 SARS-COV-2, FLU A/B, AND RSV COMBO Juan Carlos Le MD Work Phone: Start: 04-28-2024 Basic metabolic pane l calcium total Juan Carlos eL MD Work Phone: Start: 04-28-2024 Ecg routine [...] Start: 02-28-2024 Comprehensive metabo lic panel Vic oLaiza MD Work Phone: Start: 02-28-2024 Ecg routine ecg w/le ast 12 lds trcg only w/o i&r Vic Loaiza MD Work Phone: Plan of Treatment Date Care Activity Detail Author Start: 2053 RSV Immunization for Adults (1 - 1-dose 75+ series) RSV Immunization for Adults (1 - 1-dose 75+ series) [facility] Start: 2053 [facility] Start: 2038 RSV Immunization aged 60 or older (1 - 1-dose 60+ series) RSV Immunization aged 60 or older (1 - 1-dose 60+ series) [facility] Start: 10-01-2029 Lipid panel [facility] Start: 08-27-2029 Lipid panel [facility] Start: 06-14-2029 Lipid panel [facility] Start: 02-28-2029 Lipid panel Lipid Panel [facility] Start: 02-14-2028 Shingles (RZV) Vaccine (1 of 2) Shingles (RZV) Vaccine (1 of 2) [facility] Start: 02-14-2028 Zoster Vaccines (1 of 2) Zoster Vaccines (1 of 2) [facility] Start: 02-14-2028 [facility] Start: 01-21-2028 Diabetes Screening Diabetes Screening [facility] Start: 09-10-2027 Diabetes Screening Diabetes Screening [facility] Start: 03-01-2027 Diabetes mellitus screening Diabetes Screening [facility] Start: 01-20-2026 Complete blood count Hemoglobin/Hematocrit [facility] Start: 01-20-2026 Creatinine measurement Serum Creatinine [facility] Start: 10-25-2025 Creatinine measurement Basic Metabolic Panel [facility] Start: 10-21-2025 Creatinine measurement Basic Metabolic Panel [facility] Start: 10-06-2025 Creatinine measurement Basic Metabolic Panel [facility] Start: 10-01-2025 Hemoglobin A1c measurement Hemoglobin A1C [facility] Start: 08-25-2025 Creatinine measurement Creatinine Level [facility] Start: 08-25-2025 Potassium measurement Potassium Level [facility] Start: 08-20-2025 Creatinine measurement [facility] Start: 08-20-2025 Potassium measurement [facility] Start: 08-19-2025 Creatinine measurement Creatinine Level [facility] Start: 08-19-2025 Potassium measurement Potassium Level [facility] Start: 08-12-2025 Creatinine measurement Creatinine Level [facility] Start: 08-12-2025 Potassium measurement Potassium Level [facility] Start: 08-11-2025 Echocardiography Echocardiogram [facility] Start: 08-11-2025 [facility] Start: 08-05-2025 Creatinine measurement Creatinine Level [facility] Start: 08-05-2025 Potassium measurement Potassium Level [facility] Start: 07-30-2025 Creatinine measurement Creatinine Level [facility] Start: 07-30-2025 Potassium measurement Potassium Level [facility] Start: 07-21-2025 Creatinine measurement Creatinine Level [facility] Start: 07-21-2025 Potassium measurement Potassium Level [facility] Start: 07-16-2025 Creatinine measurement Creatinine Level [facility] Start: 07-16-2025 Potassium measurement Potassium Level [facility] Start: 07-04-2025 Creatinine measurement Creatinine Level [facility] Start: 07-04-2025 Potassium measurement Potassium Level [facility] Start: 06-20-2025 Creatinine measurement Creatinine Level [facility] Start: 06-20-2025 Potassium measurement Potassium Level [facility] Start: 06-15-2025 Echocardiography Echocardiogram [facility] Start: 06-08-2025 Creatinine measurement Creatinine Level [facility] Start: 06-08-2025 Potassium measurement Potassium Level [facility] Start: 06-01-2025 Creatinine measurement Creatinine Level [facility] Start: 06-01-2025 Potassium measurement Potassium Level [facility] Start: 05-30-2025 Creatinine measurement Creatinine Level [facility] Start: 05-30-2025 Potassium measurement Potassium Level [facility] Start: 04-28-2025 Creatinine measurement Creatinine Level [facility] Start: 04-28-2025 Potassium measurement Potassium Level [facility] Start: 03-30-2025 Influenza vaccination Influenza Vaccine (#1) [facility] Start: 03-07-2025 Creatinine measurement Creatinine Level [facility] Start: 03-07-2025 Potassium measurement Potassium Level [facility] Start: 03-05-2025 Creatinine measurement Creatinine Level [facility] Start: 03-05-2025 Potassium measurement Potassium Level [facility] Start: 03-04-2025 Liver Imaging (Hepatocellular Carcinoma Screening) Liver Imaging (Hepatocellular Carcinoma Screening) [facility] Start: 03-01-2025 Creatinine measurement Creatinine Level [facility] Start: 03-01-2025 Diabetes mellitus screening [facility] Start: 03-01-2025 Potassium measurement Potassium Level [facility] Start: 02-28-2025 Creatinine measurement Creatinine Level [facility] Start: 02-28-2025 Echocardiography Echocardiogram [facility] Start: 02-28-2025 Influenza vaccination Influenza Vaccine (#1) [facility] Start: 02-28-2025 Potassium measurement Potassium Level [facility] Start: 2025 Legionella pneumophila Ag [Presence] in Urine [facility] Start: 2025 Streptococcus pneumoniae antigen assay [facility] Start: 2025 Verification routine [facility] Start: 2025 Admission procedure [facility] Start: 2025 Hospital admission, emergency, from emergency room, medical nature [facility] Start: 2025 [facility] Start: 02-10-2025 Evaluation of diagnostic study results [facility] Start: 01-29-2025 [facility] Start: 01-29-2025 Computed tomography of abdomen and pelvis with intravenous contrast Abdomen/Pelvis W IV Cont ONLY [facility] Start: 01-29-2025 CT of chest without contrast Chest without Contrast [facility] Start: 01-29-2025 [facility] Start: 01-10-2025 Patient discharge [facility] Start: 01-08-2025 Palliative care [facility] Start: 01-07-2025 Referral to bottom precipitator operator [facility] Start: 01-05-2025 Prothrombin time [facility] Start: 01-04-2025 Following clinical pathway protocol [facility] Start: 01-04-2025 Ambulation without limitation [facility] Start: 01-04-2025 Assessment of risk of venous thromboembolism [facility] Start: 01-04-2025 Elevation of affected extremity [facility] Start: 01-04-2025 Insertion of catheter into peripheral vein [facility] Start: 01-04-2025 Measuring intake and output [facility] Start: 01-04-2025 Notification of physician [facility] Start: 01-04-2025 Patient education [facility] Start: 01-04-2025 Patient referral to dietitian [facility] Start: 01-04-2025 Providing care according to standard [facility] Start: 01-04-2025 [facility] Start: 01-04-2025 Verification routine [facility] Start: 01-04-2025 Admission procedure [facility] Start: 01-04-2025 [facility] Start: 01-04-2025 Patient referral to dietitian [facility] Start: 11-17-2024 End: 11-17-2024 Patient encounter procedure 11/17/2024 2:20 PM EDT Office Visit [facility] [address] [place] [address] Disha Brenner MD [address] [place] [address] [facility] Start: 11-12-2024 End: 11-12-2024 Patient encounter procedure 11/12/2024 8:40 AM EDT Office Visit [facility] [address] [place] [address] Jamal Geronimo MD [address] [place] [address] [facility] Start: 11-05-2024 End: 11-05-2024 Patient encounter procedure 11/05/2024 8:40 AM EDT Office Visit [facility] [address] [place] [id number] Jamal Geronimo MD [address] [place] [id number] [facility] Start: 10-28-2024 End: 04-27-2025 Assay of magnesium MAGNESIUM Lab Routine Acute kidney injury superimposed on stage 3b chronic kidney disease [N17.9, N18.32] Expected: 10/28/2024, Expires: 04/27/2025 [facility] Comment on above: Expected: 10/28/2024, Expires: Start: 10-28-2024 End: 04-27-2025 Basic metabolic 2000 panel - Serum or Plasma BASIC METABOLIC PANEL Lab Routine Acute kidney injury superimposed on stage 3b chronic kidney disease [N17.9, N18.32] Expected: 10/28/2024, Expires: 04/27/2025 [facility] Comment on above: Expected: 10/28/2024, Expires: Start: 10-28-2024 End: 04-27-2025 CBC W Auto Differential panel - Blood COMPLETE BLOOD COUNT W/DIFF Lab Routine SOB (shortness of breath) Expected: 10/28/2024, Expires: 04/27/2025 [facility] Comment on above: Expected: 10/28/2024, Expires: Start: 10-28-2024 End: 04-27-2025 Hepatic function panel HEPATIC FUNCTION PANEL Lab Routine Elevated liver enzymes Expected: 10/28/2024, Expires: 04/27/2025 [facility] Comment on above: Expected: 10/28/2024, Expires: Start: 10-18-2024 End: 10-18-2024 Patient encounter procedure 10/18/2024 10:00 AM EDT Office Visit [facility] [address] [place] [address] Cristy Luque, SURGICAL ORDERLY-NURSE ADVISOR [address] [place] [address] [facility] Start: 09-10-2024 End: 09-10-2024 Patient encounter procedure 09/10/2024 11:00 AM EDT Office Visit [facility] - [place] [address] [phone] Morgan Ulloa, SURGICAL ORDERLY - NURSE ADVISOR [address] [facility], [address] [place] [address] [facility] [place] Start: 09-02-2024 End: 09-02-2024 ambulatory [facility] [place] Start: 09-02-2024 End: 09-02-2024 Patient encounter procedure 09/02/2024 11:30 AM EST Office Visit [facility] - [place] [address] [place] [phone] Sergei Astudillo MD [address] [place] [address] [facility] [place] Start: 08-30-2024 End: 07-01-2026 US Heart Transthoracic Transthoracic echocardiogram (TTE) limited with contrast, bubble, strain, and 3D PRN CV Echocardiography Routine Chronic systolic heart failure (HCC) Expected: 08/30/2024 (Approximate), Expires: 07/01/2026 [employer] Work Phone: Comment on above: Expected: 08/30/2024 (Approximate), Expi res: 07/01/2026 Start: 08-30-2024 End: 08-30-2024 Patient encounter procedure 08/30/2024 11:00 AM EST Appointment [facility] Non-Invasive Cardiology [address] [place] [phone] [facility] Non-Invasive Cardiology Start: 08-24-2024 End: 08-24-2024 Patient encounter procedure 08/24/2024 9:00 AM EST Office Visit [facility] [place] [address] [place] [phone] Maritza Ambrosio PA-C [address] [place] [address] [facility] [place] Start: 08-18-2024 End: 08-11-2025 Basic metabolic 1998 panel - Serum or Plasma [employer] Work Phone: Start: 08-18-2024 End: 08-18-2024 Patient encounter procedure 08/18/2024 1:00 PM EST Office Visit [facility] [place] [address] [place] [phone] Maritza Ambrosio PA-C [address] [place] [address] [facility] [place] Start: 08-11-2024 End: 08-04-2025 Basic metabolic 1998 panel - Serum or Plasma Basic metabolic panel Lab Routine HFrEF (heart failure with reduced ejection fraction) (HCC) Expected: 08/11/2024 (Approximate), Expires: 08/04/2025 [facility] Comment on above: Expected: 08/11/2024 (Approximate), Expi res: 08/04/2025 Start: 08-06-2024 End: 07-30-2025 Comprehensive metabolic 1997 panel - Serum or Plasma Comprehensive metabolic panel Lab Routine SCHUYLER (acute kidney injury) (HCC) Expected: 08/06/2024 (Approximate), Expires: 07/30/2025 [facility] Work Phone: Comment on above: Expected: 08/06/2024 (Approximate), Expi res: 07/30/2025 Start: 08-04-2024 End: 08-04-2025 Basic metabolic 1998 panel - Serum or Plasma Basic metabolic panel Lab Routine HFrEF (heart failure with reduced ejection fraction) (HCC) Expected: 08/04/2024 (Approximate), Expires: 08/04/2025 [facility] [employer] Work Phone: Comment on above: Expected: 08/04/2024 (Approximate), Expi res: 08/04/2025 Start: 08-04-2024 End: 08-04-2024 Patient encounter procedure 08/04/2024 10:15 AM EST Office Visit [facility] - [place] [address] [place] [phone] Sergei Astudillo MD [address] [place] [address] [facility] [place] Start: 08-01-2024 End: 07-01-2025 Basic metabolic 1998 panel - Serum or Plasma Basic metabolic panel Lab Routine Chronic systolic heart failure (HCC) Expected: 08/01/2024 (Approximate), Expires: 07/01/2025 [facility] Comment on above: Expected: 08/01/2024 (Approximate), Expi res: 07/01/2025 Start: 07-29-2024 End: 07-29-2024 Patient encounter procedure 07/29/2024 2:30 PM EST Office Visit [facility] - [place] [address] [facility] [address] [place] [phone] Morgan Ulloa, SURGICAL ORDERLY - NURSE ADVISOR [address] [facility], [address] [address] [facility] Start: 07-28-2024 End: 07-21-2025 Basic metabolic 1998 panel - Serum or Plasma Basic metabolic panel Lab Routine HFrEF (heart failure with reduced ejection fraction) (HCC) Expected: 07/28/2024 (Approximate), Expires: 07/21/2025 [facility] Comment on above: Expected: 07/28/2024 (Approximate), Expi res: 07/21/2025 Start: 07-28-2024 End: 07-28-2024 Patient encounter procedure 07/28/2024 9:30 AM EST Office Visit [facility] [address] [place] [phone] Sergei Astudillo MD [address] [place] [address] [facility] Start: 07-23-2024 End: 07-23-2024 Patient encounter procedure 07/23/2024 2:30 PM EST Office Visit [facility] [address] [phone] Morgan Ulloa, SURGICAL ORDERLY - NURSE ADVISOR [address] [address] [facility] Start: 07-21-2024 End: 07-21-2025 Basic metabolic 1998 panel - Serum or Plasma Basic metabolic panel Lab Routine HFrEF (heart failure with reduced ejection fraction) (HCC) Expected: 07/21/2024 (Approximate), Expires: 07/21/2025 [facility] Work Phone: Comment on above: Expected: 07/21/2024 (Approximate), Expi res: 07/21/2025 Start: 07-21-2024 End: 07-21-2024 Patient encounter procedure 07/21/2024 9:30 AM EST Office Visit [facility] [address] [place] [address] Morgan Ulloa, SURGICAL ORDERLY - NURSE ADVISOR [address] [facility], [address] [address] [facility] Start: 07-19-2024 End: 07-16-2025 Basic metabolic 1998 panel - Serum or Plasma Basic metabolic panel Lab Routine Chronic systolic heart failure (HCC) Expected: 07/19/2024 (Approximate), Expires: 07/16/2025 [facility] Work Phone: Comment on above: Expected: 07/19/2024 (Approximate), Expi res: 07/16/2025 Start: 07-14-2024 End: 07-07-2025 Basic metabolic 1998 panel - Serum or Plasma Basic metabolic panel Lab Routine Acute systolic heart failure (HCC) Expected: 07/14/2024 (Approximate), Expires: 07/07/2025 [facility] Work Phone: Comment on above: Expected: 07/14/2024 (Approximate), Expi res: 07/07/2025 Start: 07-07-2024 End: 07-07-2024 Patient encounter procedure 07/07/2024 1:00 PM EST Office Visit [facility] [address] [place] [address] Alex Zhang MD [address] [address] [facility] Start: 07-01-2024 End: 07-01-2024 Patient encounter procedure 07/01/2024 10:45 AM EST Office Visit [facility] [address] [phone] Alex Zhang MD [address] [address] [facility] Start: 06-16-2024 End: 06-10-2025 Basic metabolic 1997 panel - Serum or Plasma Basic metabolic panel Lab Routine Congestive heart failure, unspecified HF chronicity, unspecified heart failure type (HCC) Expected: 06/16/2024 (Approximate), Expires: 06/10/2025 [employer] Work Phone: Comment on above: Expected: 06/16/2024 (Approximate), Expi res: 06/10/2025 Start: 06-15-2024 End: 06-08-2025 Hepatic function 2000 panel - Serum or Plasma Hepatic function panel Lab Routine Congestive heart failure, unspecified HF chronicity, unspecified heart failure type (HCC) Expected: 06/15/2024 (Approximate), Expires: 06/08/2025 [employer] Work Phone: Comment on above: Expected: 06/15/2024 (Approximate), Expi res: 06/08/2025 Start: 06-14-2024 End: 06-14-2024 Patient encounter procedure 06/14/2024 3:15 PM EST Office Visit [facility] [address] [facility] [address] [place] [phone] Dudley Killian MD [address] [facility] [address] [place], [place] [phone] [facility] Start: 06-08-2024 End: 06-01-2025 CBC W Auto Differential panel - Blood CBC auto differential Lab Routine HFrEF (heart failure with reduced ejection fraction) (HCC) Expected: 06/08/2024 (Approximate), Expires: 06/01/2025 [facility] [facility] Comment on above: Expected: 06/08/2024 (Approximate), Expi res: 06/01/2025 Start: 06-08-2024 End: 06-01-2025 Comprehensive metabolic 1997 panel - Serum or Plasma Comprehensive metabolic panel Lab Routine HFrEF (heart failure with reduced ejection fraction) (HCC) Expected: 06/08/2024 (Approximate), [facility]pires: [facility]25 [facility] Comment on above: Expected: 06/08/2024 (Approximate), Expi res: 06/01/2025 Start: 06-08-2024 End: 06-08-2024 Patient encounter procedure 06/08/2024 9:30 AM EST Office Visit [facility] [address] [place] [address] Morgan Ulloa APRN - NURSE ADVISOR [address], [address] [place] [address] [facility] Start: 04-05-2024 End: 04-05-2024 Patient encounter procedure [facility] Start: 03-11-2024 End: 03-11-2024 Patient encounter procedure 03/11/2024 10:00 AM EDT Office Visit [facility] [address] [place] [id number] Gaby Marcano APRN - NURSE ADVISOR [address] [facility] [address] [place], [place] [id number] [facility] Start: 02-29-2024 COVID-19 Vaccine ( season) COVID-19 Vaccine ( season) [facility] Start: 02-29-2024 COVID-19 Vaccine ( season) COVID-19 Vaccine ( season) [facility] Start: 02-29-2024 Influenza vaccination Influenza Vaccine (#1) [facility] Start: 02-29-2024 [facility] Start: 2023 Screening for malignant neoplasm of colon [facility] Start: 1997 DTaP/Tdap/Td Vaccines (1 - Tdap) DTaP/Tdap/Td Vaccines (1 - Tdap) [facility] Start: 1997 Hepatitis A (HAV) Vaccine (optional start 19+ years) Hepatitis A (HAV) Vaccine (optional start 19+ years) [facility] Start: 1997 Hepatitis A Vaccine (1 of 2 - Risk 2-dose series) Hepatitis A Vaccine (1 of 2 - Risk 2-dose series) [facility] Start: 1997 Hepatitis B vaccination Hepatitis B (HBV) Vaccine (1 of 3 - 19+ 3-dose series) [facility] Start: 1997 Hepatitis B Vaccine (1 of 3 - 19+ 3-dose series) Hepatitis B Vaccine (1 of 3 - 19+ 3-dose series) [facility] Start: 1997 Hepatitis B Vaccines (1 of 3 - 19+ 3-dose series) Hepatitis B Vaccines (1 of 3 - 19+ 3-dose series) [facility] Start: 1997 Pneumococcal vaccination [facility] Start: 1997 Pneumococcal Vaccine: Pediatrics (0 to 5 Years) and At-Risk Patients (6 to 49 Years) (1 of 2 - PCV) Pneumococcal Vaccine: Pediatrics (0 to 5 Years) and At-Risk Patients (6 to 49 Years) (1 of 2 - PCV) [facility] Start: 1997 Urine microalbumin profile DTaP,Tdap,Td Vaccine (1 - Tdap) [facility] Start: 1997 [facility] Start: 02-14-1996 Annual PCP Team Chronic Disease Visit Annual PCP Team Chronic Disease Visit [facility] Start: 02-14-1996 Anxiety Screening Anxiety Screening [facility] Start: 02-14-1996 Depression Screening Depression Screening [facility] Start: 02-14-1996 Diabetes mellitus screening Diabetes Screening [facility] Start: 02-14-1996 Hepatitis C screening [facility] Start: 02-14-1996 HIV screening HIV Screening [facility] Start: 02-14-1996 Tdap Booster Tdap Booster [facility] Start: 1990 Depression Screening Depression Screening [facility] Start: 1990 [facility] Start: 02-14-1984 Pneumococcal Vaccine: Pediatrics (0 to 5 Years) and At-Risk Patients (6 to 64 Years) (1 of 2 - PCV) Pneumococcal Vaccine: Pediatrics (0 to 5 Years) and At-Risk Patients (6 to 64 Years) (1 of 2 - PCV) [facility] Start: 1979 MMR Vaccines (1 of 1 - Standard series) MMR Vaccines (1 of 1 - Standard series) [facility] Start: 1979 [facility] Start: 1978 Echocardiography Echocardiogram [facility] Start: 1978 Fluid sample AFP level Alpha Fetoprotein (Hepatocellular Carcinoma Screening) [facility] Start: 1978 HIV screening [facility] Start: 1978 Lipid panel Lipid Panel [facility] Start: 1978 Prostate specific antigen measurement Prostate Cancer Screening (shared decision making) [facility] Start: 1978 Screening for malignant neoplasm of colon [facility] Alanine aminotransfe rase [Enzymatic activity/volume] in Serum or Plasma [facility] Albumin [Mass/volume ] in Serum or Plasma [facility] Alkaline phosphatase [Enzymatic activity/volume] in Serum or Plasma [facility] Anion gap in Serum o r Plasma [facility] Assay of magnesium MAGNESIUM Lab STAT Daily until discontinued starting 10/01/2024, 4 completed [facility] Comment on above: Daily until discontinued starting 2024, 4 completed Assay of magnesium MAGNESIUM Lab STAT Daily until discontinued starting 10/18/2024, 4 [facility] Comment on above: Daily until discontinued starting 2024, 4 completed End: 10-26-2024 Assay of magnesium MAGNESIUM Lab Routine Morning Blood Draw for 1 Occurrences starting 10/26/2024 until 10/26/2024 [facility] Comment on above: Morning Blood Draw for 1 Occurrences sta rting 10/26/2024 until 10/26/2024 Assay of phosphorus inorganic PHOSPHORUS Lab Routine Daily until discontinued starting 10/01/2024, 4 completed [employer] Work Phone: Comment on above: Daily until discontinued starting 2024, 4 completed End: 04-28-2024 Bacteria identified in Lower respiratory specimen by Aerobe culture Respiratory culture and Stain Microbiology Routine Once (Lab) for 1 Occurrences starting 04/28/2024 until 04/28/2024 [facility] Comment on above: Once (Lab) for 1 Occurrences starting until 04/28/2024 Basic metabolic 2000 panel - Serum or Plasma BASIC METABOLIC PANEL Lab STAT Daily until discontinued starting 10/01/2024, 4 completed [employer] Work Phone: Comment on above: Daily until discontinued starting 2024, 4 completed Basic metabolic 2000 panel - Serum or Plasma BASIC METABOLIC PANEL Lab STAT Daily until discontinued starting 10/18/2024, 4 completed [facility] Comment on above: Daily until discontinued starting 2024, 4 completed End: 10-26-2024 Basic metabolic 2000 panel - Serum or Plasma BASIC METABOLIC PANEL Lab Routine Morning Blood Draw for 1 Occurrences starting 10/26/2024 until 10/26/2024 [facility] Comment on above: Morning Blood Draw for 1 Occurrences sta rting 10/26/2024 until 10/26/2024 Bilirubin, total measurement [facility] End: 10-02-2024 Blood count complete auto&auto difrntl wbc CBC WITH DIFFERENTIAL Lab Only STAT Once for 1 Occurrences starting 10/02/2024 until 10/02/2024 [facility] Comment on above: Once for 1 Occurrences starting 10/03/19 until 10/02/2024 End: 10-04-2024 Blood count complete auto&auto difrntl wbc CBC WITH DIFFERENTIAL Lab Only STAT Once for 1 Occurrences starting 10/04/2024 until 10/04/2024 [facility] Comment on above: Once for 1 Occurrences starting 10/05/19 until 10/04/2024 End: 10-05-2024 Blood count complete auto&auto difrntl wbc CBC WITH DIFFERENTIAL Lab Only STAT Once for 1 Occurrences starting 10/05/2024 until 10/05/2024 [facility] Comment on above: Once for 1 Occurrences starting 10/06/19 until 10/05/2024 End: 10-19-2024 Blood count complete auto&auto difrntl wbc CBC WITH DIFFERENTIAL Lab Only STAT Once for 1 Occurrences starting 10/19/2024 until 10/19/2024 [employer] Work Phone: Comment on above: Once for 1 Occurrences starting 10/20/19 until 10/19/2024 End: 10-22-2024 Blood count complete auto&auto difrntl wbc CBC WITH DIFFERENTIAL Lab Only STAT Once for 1 Occurrences starting 10/22/2024 until 10/22/2024 [facility] Comment on above: Once for 1 Occurrences starting 10/23/19 until 10/22/2024 End: 10-23-2024 Blood count complete auto&auto difrntl wbc CBC WITH DIFFERENTIAL Lab Only STAT Once for 1 Occurrences starting 10/23/2024 until 10/23/2024 [facility] Comment on above: Once for 1 Occurrences [...] Occurrences starting 10/27/19 until 10/26/2024 BUN/Creatinine ratio [facility] Calcium [Mass/volume ] in Serum or Plasma [facility] Carbon dioxide, tota l [Moles/volume] in Central venous blood [facility] CBC W Auto Different ial panel - Blood COMPLETE BLOOD COUNT W/DIFF Lab STAT Daily until discontinued starting 10/01/2024, 3 completed [facility] Comment on above: Daily until discontinued starting 2024, 3 completed CBC W Auto Different ial panel - Blood COMPLETE BLOOD COUNT W/DIFF Lab STAT Daily until discontinued starting 10/18/2024, 4 completed [facility] Comment on above: Daily until discontinued starting 2024, 4 completed End: 10-26-2024 CBC W Auto Differential panel - Blood COMPLETE BLOOD COUNT W/DIFF Lab Routine Morning Blood Draw for 1 Occurrences starting 10/26/2024 until 10/26/2024 [facility] Work Phone: Comment on above: Morning Blood Draw for 1 Occurrences sta rting 10/26/2024 until 10/26/2024 Cholesterol [Mass/vo lume] in Serum or Plasma [facility] Cholesterol in HDL [Mass/volume] in Serum or Plasma [facility] End: 08-25-2024 COVID-19, Flu A/B, and RSV Combo COVID-19, Flu A/B, and RSV Combo Microbiology STAT Once (Lab) for 1 Occurrences starting 08/25/2024 until 08/25/2024 [employer] Work Phone: Comment on above: Once (Lab) for 1 Occurrences starting until 08/25/2024 Creatinine [Mass/vol ume] in Serum or Plasma [facility] End: 10-17-2024 Cul prsmptv pthgnc organism scrn w/colony estimj MRSA SCREEN Microbiology STAT One time for 1 Occurrences starting 10/17/2024 until 10/17/2024 [employer] Work Phone: Comment on above: One time for 1 Occurrences starting 09/29 until 10/17/2024 End: 10-18-2024 Culture bacterial blood aerobic w/id isolates BLOOD CULTURE Microbiology Routine One time for 1 Occurrences starting 10/18/2024 until 10/18/2024 [facility] Comment on above: One time for 1 Occurrences starting 09/29 until 10/18/2024 ECG 12 lead ECG 12 lead CV E CG STAT 04/28/2024 10:07 AM EDT [employer] Work Phone: ECG 12 lead ECG 12 lead CV E CG Routine Congestive heart failure, unspecified HF chronicity, unspecified heart failure type (HCC) 06/08/2024 10:32 AM [employer] Work Phone: ECG 12 lead ECG 12 lead CV E CG STAT 08/05/2024 7:06 AM [employer] Work Phone: ECG 12 lead ECG 12 lead CV E CG STAT 08/25/2024 2:29 AM [employer] End: 10-20-2024 Ecg routine ecg w/least 12 lds trcg only w/o i&r EKG 12 LEAD - PERFORM MUSE Routine Daily for 3 Days starting 10/18/2024 until 10/20/2024, 1 completed [facility] Comment on above: Daily for 3 Days starting 10/18/2024 unt il 10/20/2024, 1 completed Ecg routine ecg w/le ast 12 lds trcg only w/o i&r EKG 12 LEAD - PERFORM MUSE Routine PRN until discontinued starting 10/18/2024 [facility] Comment on above: PRN until discontinued starting 10/19/19 25 Erythrocyte mean corpuscular volume determination [facility] Evaluation of diagno stic study results [facility] Glucose [Mass/volume ] in Serum or Plasma [facility] Hematocrit [Volume Fraction] of Blood [facility] Hemoglobin [Mass/vol ume] in Blood [facility] Hepatic function panel HEPATIC F UNCTION PANEL Lab Routine Daily until discontinued starting 10/19/2024, 3 completed [facility] Comment on above: Daily until discontinued starting 2024, 3 completed End: 09-30-2024 Iaad ia mult step method nos each organism LEGIONELLA ANTIGEN, URINE Microbiology STAT One time for 1 Occurrences starting 09/30/2024 until 09/30/2024 [employer] Work Phone: Comment on above: One time for 1 Occurrences starting 08/2024 until 09/30/2024 INR in Blood by Coagulation assay [facility] LAB COLOGUA COLON CANCER SCREEN [facility] COL[facility] Lab Routine Screening for colorectal cancer Ordered: 12/02/2024 [employer] Work Phone: Comment on above: Ordered: 12/02/2024 Leukocytes [#/volume ] in Blood [facility] Low density lipoprot ein cholesterol measurement [facility] Magnesium measurement [facility] Mean corpuscular hemoglobin concentration determination [facility] Mean corpuscular hemoglobin determination [facility] Measurement of renal function [facility] Natriuretic peptide. B prohormone N-Terminal [Mass/volume] in Serum or Plasma [facility] Neutrophil count [facility] Neutrophil percent differential count [facility] End: 09-30-2024 Particle agglutination screen each antibody STREPTOCOCCUS PNEUMONIAE AG Microbiology STAT One time, now for 1 Occurrences starting 09/30/2024 until 09/30/2024 [facility] Comment on above: One time, now for 1 Occurrences starting 09/30/2024 until 09/30/2024 Patient Education Heart Failure and Depression Heart Failure Meds Heart Failure Flare Up Signs Heart Failure Make Changes Diet Heart Failure Dc Heart Failure Sleep Problems Heart Failure Care Heart Failure and Physical Activity Heart Failure [facility] Work Phone: Platelets [#/volume] in Blood [facility] Potassium measurement [facility] Red blood cell count [facility] Red cell distributio n width determination [facility] End: 04-28-2024 Respiratory pathogens DNA and RNA panel - Lower respiratory specimen by DEENA with non-probe detection Pneumonia PCR Panel Microbiology Routine Once (Lab) for 1 Occurrences starting 04/28/2024 until 04/28/2024 [facility] Work Phone: Comment on above: Once (Lab) for 1 Occurrences starting until 04/28/2024 Serum chloride measurement [facility] Sodium measurement [facility] Total cholesterol:HD L ratio measurement [facility] Total protein measurement [facility] Triglycerides measurement [facility] Urea nitrogen [Mass/volume] in Serum or Plasma [facility] Urnls dip stick/tabl et rgnt auto w/o microscopy URINALYSIS W/REFLEX CULTURE Lab Routine When Specimen Available/Needed for 1 Occurrences starting 10/25/2024 [facility] Comment on above: When Specimen Available/Needed for 1 Occ urrences starting 10/25/2024 VLDL cholesterol measurement [facility] Immunizations Immunization Date Immunization Notes Care Provider Jamaal ramirez 10-01-2024 Hemoglobin A1C Vargas Berg MD Work Phone: [facility] 06-14-2024 influenza vaccine tiss-cult subunt (Flucelvax) STANDARD-DOSE injection 0.5 mL Joel Reyes MD Work Phone: [facility] Payers Date Payer Category Payer Self-pay 2024 Commercial Managed C are - HMO [id number] 2024 Other Federal [facility] [employer] UAL EXCHANGE [id number] 2024 Private Health Insurance [facility] [id number] 2024 Unknown [id number] 2024 Medicaid [id number]. [id number] 2024 Medicaid [id number] 1978 Unknown [id number] .1.219905.3.579.2. 159 1978 Unknown [id number] 08.15.830.1.587965.3.579.2. 1978 Unknown [id number] 08.15.830.1.868792.3.579.2. 1978 Unknown [id number] 08.15.830.1.816313.3.579.2. 1978 Unknown [id number] .1.672172.3.579.2. 1978 Unknown [id number] 08.15.830.1.696236.3.579.2. 73 1978 Unknown [id number] 20.1.964615.3.579.2. 1978 Unknown [id number] 2.16.840.1.458680.3.579.2. 1978 Unknown [id number] 2.16.840.1.343118.3.579.2 1978 Unknown [id number] 2.16.840.1.005032.3.579.2 1978 Unknown [id number] 2.16.840.1.825318.3.579.2 1978 Unknown [id number] 2.16.840.1.878382.3.579.2 1978 Unknown [id number] 2..840.1.990356.3.579. 1978 Unknown [id number] 2.840.1.055605.3.579. 1978 Unknown [id number] 2..840.1.761515.3.579. 1978 Unknown [id number] 2..840.1.561086.3.579. 1978 Unknown [id number] 2..840.1.874116.3.579.2 1978 Unknown [id number] 2..840.1.737897.3.579.2 1978 Unknown [id number] 2..840.1.948097.3.579.2 1978 Unknown [id number] 2..840.1.706882.3.579.2 1978 Unknown [id number] 2.16.840.1.700748.3.579.2 1978 Unknown [id number] 2..840.1.675554.3.579.2 1978 Unknown [id number] 2.16.840.1.450196.3.579.2. 732 1978 Unknown [id number] 2.840.1.275346.3.579.2. 732 1978 Unknown [id number] 2.840.1.632684.3.579.2. 732 1978 Unknown [id number] 2.840.1.797433.3.579.2. 732 1978 Unknown [id number] 2.840.1.073516.3.579.2. 732 Unknown Unknown [id number] 2.840.1.818080.3.579.2. 462 Unknown [id number] 2.840.1.315925.3.579.2. 462 Unknown [id number] 2.840.1.185687.3.579.2. 462 Unknown [id number] 2.840.1.223332.3.579.2. 462 Unknown [id number] 2.840.1.534499.3.579.2. 462 Unknown [id number] 2.840.1.871945.3.579.2. 462 Unknown [id number] 2.840.1.580648.3.579.2. 462 Unknown [id number] 2.840.1.787182.3.579.2. 462 Unknown [id number] .840.1.052906.3.579.2. 462 Unknown [id number] 2.840.1.918064.3.579.2. 462 Unknown [id number] 2.840.1.540963.3.579.2. 462 Unknown [id number] 2.840.1.488718.3.579.2. 462 Social History Date Type Detail Facility Start: 02-28-2024 End: 2025 Tobacco smoking status [facility] Never smoked tobacco [facility] Start: 02-28-2024 End: 08-27-2024 Tobacco use and exposure Smokeless tobacco non-user [facility] Start: 02-28-2024 End: 01-20-2025 History of Social function [facility] Start: 02-28-2024 End: 01-20-2025 B1300 Health Literacy [facility] How often do you nee d to have someone help you when you read instructions, pamphlets, or other written material from your doctor or pharmacy [SILS] Never [facility] Has the electric, gas, oil, or water company threatened to shut off services in your home in past 12Mo No [facility] Are you now , , , , never or living with a partner? Living with partner [facility] How often to you hav e a drink containing alcohol? Never [facility] How hard is it for you to pay for the very basics like food, housing, medical care, and heating Not very hard [facility] Do you feel stress - tense, restless, nervous, or anxious, or unable to sleep at night because your mind is troubled all the time - these days [OSQ] To some extent [facility] (I/We) worried whether (my/our) food would run out before (I/we) got money to buy more. Never true [facility] Start: 1980 Sex assigned at Not on file [facility] How often to you hav e a drink containing alcohol? Monthly or less [facility] How many standard drinks containing alcohol do you have on a typical day? 1 or 2 [facility] Start: 02-28-2024 End: 08-09-2024 Sex Male (finding) [facility] Do you feel stress - tense, restless, nervous, or anxious, or unable to sleep at night because your mind is troubled all the time - these days [OSQ] Not at all [facility] Start: 05-28-2024 Sexual orientation Heterosexual (gio smith) [facility] Start: 05-28-2024 End: 08-25-2024 Alcoholic beverage intake Lifetime non-drinker (finding) [facility] Start: 1980 Sex assigned at Male [facility] Start: 06-13-2024 Gender identity Identifies as male gender (finding) [facility] Tobacco smoking status [facility] Tobacco smoking consumption unknown [facility] Work Phone: NEGATED: Highlighted rowStart: HALIEF History of tobacco use Passive smoker [facility] Goals Date Patient Goal Desired Activity /State Personal health goal Functional Status Date Assessment Result Facility 01-21-2025 Are you deaf, or do you have serious difficulty hearing No 01/21/2025 1:26 PM King Villeda, CRISTINE No [facility] 01-21-2025 Are you blind, or do you have serious difficulty seeing, even when wearing glasses No 01/21/2025 1:26 PM King Villeda, CRISTINE No [facility] 01-21-2025 Do you have serious difficulty walking or climbing stairs No 01/21/2025 1:26 PM King Villeda, RN No [facility] 01-21-2025 Do you have difficul ty dressing or bathing No 01/21/2025 1:26 PM King Villeda, CRISTINE No [facility] 01-21-2025 Because of a physica l, mental, or emotional condition, do you have difficulty doing errands alone such as visiting a physician's office or shopping No 01/21/2025 1:26 PM King Villeda, CRISTINE [facility] 01-10-2025 Functional status Ambulates;Bath room [employer]ile[employer] [facility] Work Phone: 01-10-2025 Functional status Ambulates [facility] Work Phone: 01-09-2025 Functional status Tolerates Activity [facility] Work Phone: 06-01-2024 Are you deaf, or do you have serious difficulty hearing No [facility] 06-01-2024 Are you blind, or do you have serious difficulty seeing, even when wearing glasses No [facility] 06-01-2024 Do you have serious difficulty walking or climbing stairs No [facility] 06-01-2024 Do you have difficul ty dressing or bathing No [facility] 06-01-2024 Because of a physica l, mental, or emotional condition, do you have difficulty doing errands alone such as visiting a physician's office or shopping No [facility] Mental Status Date Assessment Result Facility 01-21-2025 Because of a physica l, mental, or emotional condition, do you have serious difficulty concentrating, remembering, or making decisions No 01/21/2025 1:26 PM EDT King Ingram, RN No [facility] 01-10-2025 Cognitive function Voice/Name [facility] Work Phone: 01-09-2025 Cognitive function Voice/Name [facility] Work Phone: 06-01-2024 Because of a physica l, mental, or emotional condition, do you have serious difficulty concentrating, remembering, or making decisions No [facility] Clinical Notes 02-28-2024 to 2025 Note Date & Type Note Facility 2025 Radiology Diagnostic study note [facility] Imaging Services [address], [place] [id number] Abdomen/Pelvis without Cont MR#: [id number] Acct: [id number] Name: CARLO MEDINA Rep #: [id number] : 1980 M 45 From: [facility] natasha Almodovar MD PCP: Care Physician,No Primary Status: ADM IN Study:Abdomen/Pelvis without Cont Date of Exa m: 02/13/25 Exam# [id number] Ordering Dr: Anshul Lopez DO PROCEDURE: CT ABDOMEN/PELVIS WITHOUT CONT 2025 REASON FOR EXAM: ABDOMINAL DISTENTION TECHNIQUE: CT ABDOMEN/PELVIS WITHOUT CONT Noncontrast technique limits evaluation of the abdominal and pelvic viscera. Coronal and Sagittal reconstruction series were provided. One or more dose reduction techniques were used (e.g., Automated exposure control, adjustment of the mA and/or kV according to patient size, use of iterative reconstruction technique). RADIATION DOSE SUMMARY: CTDlvol: 7.43 mGy DLP: 388 mGycm COMPARISON: 01/29/2025 FINDINGS: Lower thorax: Prominent cardiomegaly with small pericardial effusion. Right basilar airspace consolidation may represent pneumonia, such as from aspiration. No basilar pleural effusions. Liver: Grossly unremarkable and normal in size. Gallbladder: Nondilated. No radiodense gallstones. Spleen: Normal in size. Pancreas: Grossly unremarkable, no ductal dilatation. Adrenals: Unremarkable. Kidneys: Unremarkable. No nephrolithiasis or hydronephrosis. Bladder: Underdistended, limiting its evaluation. Reproductive Organs: Unremarkable, nonenlarged prostate. Bowel: Grossly unremarkable with out evidence of obstruction or discrete active inflammatory process. Centralized bowel loops secondary to large volume abdominopelvic ascites. Lymph nodes: No discrete enlarged abdominopelvic lymph nodes. Vasculature: Normal caliber abdominal aorta and IVC. Peritoneum / Retroperitoneum: Large volume simple attenuating abdominopelvic ascites, with distended abdomen. No pneumoperitoneum. Musculoskeletal: Generalized subcutaneous edema. No acute or aggressive osseousabnormality. Mild degenerative changes of the visualized lower thoracic spine. CT/Abdomen/Pelvis without Cont IMPRESSION: Prominent cardiomegaly with small nonspecific pericardial effusion. Generalized fluid overload/third-spacing with diffuse soft tissue edema and large volume abdominopelvic ascites. Patchy consolidation in the right lung base may represent pneumonia, possibly from aspiration. Reading Location: [id number] CC: Dr. Anshul Lopez DO; No Primary Care Physician ~ Plant Wrapper: Signed [facility] 2025 Radiology Diagnostic study note [facility] Imaging Services [address] [place] [address] Chest PA and Lateral MR#: [id number] Acct: [id number] Name: CARLO MEDINA Rep #: [id number] : 1980 M 45 From: Rylan Almodovar MD PCP: Care Physician,No Primary Status: [facility] ER Study:Chest PA and Lateral Date of Exam: 02/13/25 Exam# [id number] Ordering Dr: Anshul Lopez DO PROCEDURE: CHEST PA AND LATERAL 2025 REASON FOR EXAM: DYSPNEA TECHNIQUE: CHEST PA AND LATERAL COMPARISON: 01/29/2025. FINDINGS: Lungs/Pleura: Clear. No airspace consolidation, pneumothorax or pleural effusion. Heart/Mediastinum: Prominent cardiomegaly. Central vascular congestion. Bones/Soft tissues: Mild degenerative changes of the spine. RAD/Chest PA and Lateral IMPRESSION: Prominent cardiomegaly. No airspace disease or pleural effusion. Reading Location: [id number] CC: Dr. Anshul Lopez, ; No Primary Care Physician ~ Plant Wrapper: Signed [facility] 02-01-2025 Note HNO ID: [id number] Author: JASON CANO MD Service: Hospital Medicine [...] February 01, 2025 TIME: 12:54 PM PAGER: [facility] 02-01-2025 Note HNO ID: [id number] Author: KASSANDRA ENGLAND LSW Service: Care Management Author Type: Ebd Teacher Type: Care Mgt Progress Note Filed: 02/01/2025 [...] establish with a PCP and utilize [facility] in the future. No discharge concerns at this time. SIGNATURE: MADDIE Billy PATIENT NAME: Carlo Medina DATE: February 01, 2025 TIME: 12:25 PM [facility] 02-01-2025 Note HNO ID: [id number] Author: KASSANDRA ENGLAND LSW Service: Care Management Author Type: Ebd Teacher Type: Care Mgt Initial Assessment Filed: 02/01/2025 10:00 Note Text: CARE MANAGEMENT: ASSESSMENT AND DISCHARGE PLAN SERVICE DATE: February 01, 2025 SERVICE TIME: 9:57 AM PCP: No primary care provider on file. Primary Contact: No emergency contact information on file. 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 GI attending, Dr. Bates [facility] 01-31-2025 Note HNO ID: [id number] Author: ROLANDO ROBBINS MD Service: General Internal Medicine Author Type: Physician Type: Progress Notes Filed: 01/31/2025 07:57 Note Text: DEPARTMENT OF HOSPITAL MEDICINE PROGRESS NOTE SERVICE DATE: 01/31/2025 SERVICE TIME: 7:50 AM Hospital Medicine/Primary Attending: Rolando Robbins MD NIGHT AND WEEKEND COVERAGE: [place] COVERAGE: From 7am - 7pm, please call [phone] After 7pm, please call cross cover pager #[phone] Subjective INTERVAL HPI: Patient refused to take [...] (From admission, onw (more content not included)... [facility] 01-30-2025 Note HNO ID: [id number] Author: ROLANDO ROBBINS MD Service: General Internal Medicine Author Type: Physician Type: Progress Notes Filed: 01/30/2025 14:54 Note Text: DEPARTMENT OF HOSPITAL MEDICINE PROGRESS NOTE SERVICE DATE: 01/30/2025 SERVICE TIME: 9:11 AM Hospital Medicine/Primary Attending: Nic Rosado,* NIGHT AND WEEKEND COVERAGE: [place] COVERAGE: From 7am - 7pm, please call [phone] After 7pm, please call cross cover pager #[phone] Subjective INTERVAL HPI: No major events noted [...] -- 01/30/25 0000 activity - mobilize patient (mi,nd) VTE Prophylaxis: VTE prophylaxis appropriate Disposition: To be determined Plan of car (more content not included)... [facility] 01-29-2025 Discharge summary Note Date/Time January 29, 2025 4:35pm [facility] Medical Records Department [address] [place] [address] Emergency Department Summary 01/29/25 MR#: [id number] Acct: [id number] Name: CARLO MEDINA #:[id number] : 1980 44 From: Vargas Rea DO [...] that this is a chronic issue. PFSH PFSH Medical History Abdominal ascites CKD stage 3b, [...] follow commands that he was at [facility] years 2024 Skin: Warm, dry, tact [...] and he would prefer to go to [facility]. At 3:45 PM discussed the case with transfer line awaiting callback. Transfer line called back and notified us that the accepting physician is Dr. Burns who accept the patient to [facility]. Patient was notified is agreeable to [...] % (Auto) 62.1 Lymph % (Auto) 28.4 [place] % (Auto) 8.2 Eos % (Auto) 0.3 [...] [place] 4[place] [address] H Total Protein 6.7 Albumin 3.5 Globulin 3.2 01/29/25 13:18 WBC RBC Hgb Hct MCV MCH MCHC RDW Std Deviation RDW Coeff of Juan Plt Count MPV Immature Gran % (Auto) Neut % (Auto) Lymph % (Auto) [place] % (Auto) Eos % (Auto) Baso % [...] volume ascites. 4. Severe cardiomegaly. Reading Location: [facility] Chest X-Ray 01/29/25 10:07 IMPRESSION: No acute pulmonary process, stable cardiomegaly Reading Location: [facility] Abdomen Ultrasound 01/29/25 11:34 IMPRESSION: Hepatic fibrosis/steatosis. Large volume ascites. Consider diagnostic and therapeutic paracentesis for further evaluation as clinically indicated. Reading Location: [facility] Discharge Plan Triage Chief Complaint: Shortness of [...] Primary [Primary Care Provider] - Print Language: Mozambican Disposition Disposition: DC/Tx to Another Type of HCF What to do if you have Problems For any increased pain, shortness of breath, bleeding, nausea or vomiting, chestpain, or any unexpected problems, contact your Primary Care Provider. Call [facility] ([phone]) or report to the closest Emergency Room. Call 911 if necessary. 01/29/25 1635 <Electronically signed by Vargas Rea DO> Cosigner Signature (if applicable): CC: No Primary Care Physician ~ Signed [facility] Work Phone: 1(633) 878-688008-02-2025 Discharge summary [facility] Medical Records Department [address] [place] [address] Emergency Department Summary 01/29/25 MR#: [id number] Acct: [id number] Name: CARLO MEDINA Rep #:[id number] : 1980 44 From: Vargas Rea DO [...] follow commands that he was at [facility] years 2024 Skin: Warm, dry, tact [...] and he would prefer to go to [facility]. At 3:45 PM discussed the case with transfer line awaiting callback. Transfer line called back and notified us that the accepting physician is Dr. Burns who acceptthe patient to [facility]. Patient was notified is agreeable to [...] % (Auto) 62.1 Lymph % (Auto) 28.4 [place] % (Auto) 8.2 Eos % (Auto) 0.3 [...] [place] 4[place] [address] H Total Protein 6.7 Albumin 3.5 Globulin 3.2 01/29/25 13:18 WBC RBC Hgb Hct MCV MCH MCHC RDW Std Deviation RDW Coeff of Juan Plt Count MPV Immature Gran % (Auto) Neut % (Auto) Lymph % (Auto) [place] % (Auto) Eos % (Auto) Baso % [...] volume ascites. 4. Severe cardiomegaly. Reading Location: [facility] Chest X-Ray 01/29/25 10:07 IMPRESSION: No acute pulmonary process, stable cardiomegaly Reading Location: [facility] Abdomen Ultrasound 01/29/25 11:34 IMPRESSION: Hepatic fibrosis/steatosis. Large volume ascites. Consider diagnostic and therapeutic paracentesis for further evaluation as clinically indicated. Reading Location: [facility] Discharge Plan Triage Chief Complaint: Shortness of [...] Primary [Primary Care Provider] - Print Language: Mozambican Disposition Disposition: DC/Tx to Another Type of HCF What to do if you have Problems For any increased pain, shortness of breath, bleeding, nausea or vomiting, chestpain, or any unexpected problems, contact your Primary Care Provider. Call [facility] ([phone]) or report tothe closest Emergency Room. Call 911 if necessary. 01/29/25 4525 Cosigner Signature (if applicable): CC: No Primary Care Physician ~ Signed [facility]08-02-2025 Radiology Diagnostic study note [facility] Imaging Services [address] [place] [address] Abdomen Complete MR#: [id number] Acct: [id number] Name: CARLO MEDINA Rep #: [id number] : 1980 M 44 From: Rosie Vera MD PCP: Care Physician,No Primary Status: REG ER Study:Abdomen Complete Date of Exam: 08/24 Exam# [id number] Ordering Dr: Stewart Rea DO PROCEDURE: ABDOMEN [...] further evaluation as clinically indicated. Reading Location: [facility] CC: Dr. Vargas Rea DO; No Primary Care Physician ~ Plant Wrapper: Signed [facility]08-02-2025 Radiology Diagnostic study note [facility] Imaging Services [address] [place] [id number] Abdomen/Pelvis W IV Cont ONLY MR#: [id number] Acct: [id number] Name: CARLO MEDINA Rep #: [id number] : 1980 M 44 From: Rosie Vera MD PCP: Care Physician,No Primary Status: REG ER Study:Abdomen/Pelvis W IV Cont ONLY Date of E xam: 01/29/25 Exam# [id number] Ordering Dr: Stewart Rea DO PROCEDURE: ABDOMEN/PELVIS [...] volume ascites. 4. Severe cardiomegaly. Reading Location: [id number] CC: Dr. Vargas Rea DO; No Primary Care Physician ~ Plant Wrapper: Signed [facility]08-02-2025 Radiology Diagnostic study note [facility] Imaging Services [address] [place] [address] Chest PA and Lateral MR#: [id number] Acct: [id number] Name: CARLO MEDINA Rep #: [id number] : 1980 M 44 From: Leticia Rivers MD PCP: Care Physician,No Primary Status: REG ER Study:Chest PA and Lateral Date of Exam: 01/29/25 Exam# [id number] Ordering Dr: Stewart Rea DO PROCEDURE: CHEST [...] acute pulmonary process, stable cardiomegaly Reading Location: [id number] CC: Dr. Vargas Rea DO; No Primary Care Physician ~ Plant Wrapper: Signed [facility]07-28-2025 History of Present illness Narrative* Mallika Quiles, [facility] - 01/24/2025 7:12 AM EDT TRANSITION CARE [...] oz) Patient was sent a message via SingleHop including the link to the [facility] Heart Failure education video: No - [employer] is pending Initial contact with patient post discharge, spoke to patient, and verified that any applicable caregiver is active in patient's medical care. Patient identified by name and . Summary: -Pt discharged from [facility] on 01/21/25. -Medication review done [...] HFrEF (heart failure with reduced ejection fraction) ([facility]) Date Noted: 10/21/2024 History of left bundle branch block (LBBB) Date Noted: 06/19/2024 Essential hypertension Date Noted: 06/08/2024 CKD (chronic kidney disease) Date Noted: 06/08/2024 Personal history of DVT (deep vein thrombosis) Date Noted: 01/20/2025 NICM (nonischemic cardiomyopathy) ([facility]) Date Noted: 01/21/2025 Scleral icterus Date [...] however the patient refused. Preferred pharmacy: e- [facility]/pharmacy #[id number] [place] [address] - [address] [place] [address] - [phone] [place] [id number] Estimated Creatinine Clearance: 40.9 mL/min (A) (based on SCr of 2.46 mg/dL (H)). Estimated Glomerular Filtration Rate (mL/min/1.73m ) Date Value 01/20/2025 32 (L) Additional follow up: Next 5 Appointments None Interventions Made: None Pharmacist Recommendations Made None Care Coordination: None at this time Time spent on patient: 0-15 minutes Mallika Quiles RPh January 24, 2025 7:12 AM [facility] NoteHNO ID: [id number] Author: MALLIKA QUILES RPh Service: Pharmacy Author [...] oz) Patient was sent a message via SingleHop including the link to the [facility] Heart Failure education video: No - MyChart is pending Initial contact with patient post discharge, spoke to patient, and verified that any applicable caregiver is active in patient's medical care. Patient identified by name and . Summary: -Pt discharged from [facility] on 01/21/25. -Medication review done [...] refused. Preferred pharmacy: e- [facility]/pharmacy [id number] [place] [address] - [address] [place] [address] - [phone] [place] [address] Estimated Creatinine Clearance: 40.9 mL/min (A) (based on SCr of 2.46 mg/dL (H)). Estimated Glomerular Filtration Rate (mL/min/1.73m?) (more content not included)...[facility]07-28-2025 NotePatient Outreach (PHRXRF) CARLO MEDINA ([id number]) 1980 M Date Time Provider Department 01/24/25 MALLIKA QUILES PHRXRF During your visit today, we recorded the following information about you: Mallika Quiles [facility] 01/24/2025 2:21 PM Signed TRANSITION CARE MANAGEMENT [...] oz) Patient was sent a message via SingleHop including the link to the [facility] Heart Failure education video: No - mFoundryhart is pending Initial contact with patient post discharge, spoke to patient, and verified that any applicable caregiver is active in patient's medical care. Patient identified by name and . Summary: -Pt discharged from [facility] on 01/21/25. -Medication review done [...] HFrEF (heart failure with reduced ejection fraction) ([facility]) Date Noted: 10/21/2024 History of left bundle branch block (LBBB) Date Noted: 06/19/2024 Essential hypertension Date Noted: 06/08/2024 CKD (chronic kidney disease) Date Noted: 06/08/2024 Personal history of DVT (deep vein thrombosis) Date Noted: 01/20/2025 NICM (nonischemic cardiomyopathy) ([facility]) Date Noted: 01/21/2025 Scleral icterus Date [...] however the patient refused. Preferred pharmacy: e- [facility]/pharmacy #[id number] [place] [address] - [address] [facility] - [phone] [address] [address] [facility] [address] P (more content not included)...[address]25-2025 NoteHNO ID: [id number] Author: GABY GUIDRY RPh Service: Pharmacy Author [...] RPh January 21, 2025 1:10 PM Pager: [phone] Medication List CONTINUE taking these medications apixaban 5 mg tab(s) Commonly known as: ELIQUIS isosorbide dinitrate 20 mg tablet Commonly known as: ISORDIL STOP taking these medications hydrALAZINE 100 mg tablet Commonly known as: APRESOLINE losartan 50 mg tablet Commonly known as: [facility] NoteHNO ID: [id number] Author: MELISSA ORDAZ APRN.CNP Service: Cardiovascular Medicine Author Type: Nurse Practitioner Type: Progress Notes Filed: 01/21/2025 11:51 Note Text: [facility] CARDI[facility]ASCULAR [facility]ICINE PROGRESS NOTE Carlo Medina [id number] PRIMARY SERVICE: Linda Ta Clinical Architectural Drafting Instructor/Pa HOSPITAL DAY: # 2 INTERVAL HISTORY Less [...] most recent recordings reviewed PHYSICAL EXAM: 01/20/25204501/21/2521401/21/25 0608 01/21/25 0922 BP: 115/84 123/86 127/94 [...] of left bundle bran (more content not included)...[facility]07-25-2025 NoteHNO ID: [id number] Author: CORA SÁNCHEZ MD Service: Cardiovascular Medicine Author Type: Physician Type: Plan of Care Filed: 01/21/2025 06:30 Note Text: Patient has been refusing blood draws overnight. He wants labs to be drawn a bit late this morning. Lasix to be given later accordingly after the potassium results as his potassium was low on yesterday's labs.[facility] 01-20-2025 NoteHNO ID: [id number] Author: CHRISTOPHER GRIMES, ? Service: ? Author Type: Centerless Grinder Operator Type: Plan of Care Filed: 01/20/2025 [...] questions, please reach out to your medication skill training program coordinator. Thank you (Prices may vary at different pharmacy locations, this is the cost at [facility]07-23-2025 NoteHNO ID: [id number] Author: MANUELA SANTOS RT(R) Service: ? Author Type: Flight Purser Type: Progress Notes Filed: 01/19/2025 17:37 Note [...] PATIENT PRESENTS WITH AN IMPLANTABLE OR ATTACHED CLINICAL LAB TECHNOLOGIST: No RADIOLOGY DEPARTMENT: Ultrasound PERIPHERAL IV DATA: Not applicable SIGNED BY: RT Cristine(R) January 19, 2025 5:37 [facility]07-23-2025 [id number] (AGENT OF COVID-19) RNA: Not detected INFLUENZA A RNA: Not detected INFLUENZA B RNA: Not detected RESPIRATORY SYNCYTIAL VIRUS (RSV) RNA: Not detectedMain Campus Medical CenterComment on above:Performed By: #### [id number]- [id number] ####[facility] LABCLIA [id number] [address] OF [id number] Discharge summary Author Anshul Lemus [facility] Note Date/Time January 10, 2025 8:50 am [facility] Medical Records Department [address] [place] [address] Discharge Summary 01/10/25 0841 MR#: [id number] Acct: [id number] Name: CARLO MEDINA Rep #:[id number] : 1980 44 From: Anshul Lemus DO PCP: Care Physician,No Primary Status :ADM IN Location: [facility] [id number] Providers Date of Admission: 01/04/25 Primary [...] larger hospital that would do that including [facility], [facility] Et[facility]. Plan Feet edema: More notably [...] History of noncompliance: Per previous documentation from [facility] as well [facility]. 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 Anddiscussed with him in the presence that [...] Patient will follow-up with cardiology here at [facility] as he states he wishes to [...] Gregorio; Kaitlin Golden; Kalie Caruso; Jennifer Santiago 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; Janay Salamanca Instructions Patient Instructions: Heart Failure [...] is larger that perform those procedures including [facility], [facility], [facility], [facility]. If you have issues in regards to you passing out and having no recollection of the event, irregular heartbeat, call 911 and go to [facility] emergency room. As we discussed, you are at high risk of because of your weak heart and your abnormal heart rhythm (second-degree heart block Mobitz type II). Discharge Orders/Prescriptions Prescriptions: Continued isosorbide dinitrate 20 mg tablet 20 mg PO Q8H bumetanide 1 mg tablet 1 mg PO BID Eliquis 5 mg tablet 5 mg PO BID Referrals / Follow Up: [facility] [Provider Group] - Within 1 Month Care Physician,No Primary [Primary Care Provider] - [facility] [Outside] - Within 2 Weeks Deja Gregorio MD [Med Staff - Active Staff] - Disposition Disposition (needs filled in before D/C Order can be placed): Home, Self Care Charges/Coding Visit Charges Inpatient E&M: 85956 Disch Hosp >30min 01/10/25 0850 <Electronically signed by Anshul Lemus DO> Cosigner Signature (if applicable): CC: Dr. Anshul Lemus DO; Dr. Deja Gregorio MD; No Primary Care Physician~ Signed [facility] Work Phone: 1(560) 601-392807-14-2025 Progress note Author Anshul Lemus [facility] Note Date/Time January 10, 2025 8:41 am [facility] Medical Records Department [address] [place] [address] Progress Note - Hospitalist 01/10/25810 MR#: [id number] Acct: [id number] Name: CARLO MEDINA Rep #:[id number] : 1980 44 From: Anshul Lemus DO PCP: Care Physician,No Primary Status :ADM IN Location: [place] [address] Reason for Visit Chief Complaint: Shortness of [...] larger hospital that would do that including [facility], [facility] Etc. PLAN: Plan Feet edema: More [...] History of noncompliance: [facility] 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 Anddiscussed with him in the presence that [...] Cosigner Signature (if applicable): CC: ~ Signed [facility] Work Phone: 1(800) 773-210307-14-2025 Discharge summary [facility] Medical Records Department [address] [place] [address] Discharge Summary 01/10/25840 MR#: [id number] Acct: [id number] Name: DANNA MEDINAMarguerite Vasquez Rep #:[id number] : 1980 44 From: Anshul Lemus DO PCP: Care Physician,No Primary Status :ADM IN Location: [facility] [id number] Providers Date of Admission: 01/04/25 Primary [...] larger hospital that would do that including [facility], [facility] Etc. Plan Feet edema: More notably [...] History of noncompliance: Per previous documentation from [facility] as well [facility]. 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 Anddiscussed with him in the presence that [...] Patient will follow-up with cardiology here at [facility] as he states he wishes to [...] is larger that perform those procedures including [facility], [facility], [facility], [facility]. If you have issues in regards to you passing out and having no recollection of the event, irregular heartbeat, call 911 and go to [facility] emergency room. As we discussed, you are at high risk of because of your weak heart and your abnormal heart rhythm (second-degree heart block Mobitz type II). Discharge Orders/Prescriptions Prescriptions: Continued isosorbide dinitrate 20 mg tablet 20 mg PO Q8H bumetanide 1 mg tablet 1 mg PO BID Eliquis 5 mg tablet 5 mg PO BID Referrals / Follow Up: [facility] [Provider Group] - Within 1 Month Care Physician,No Primary [Primary Care Provider] - [facility] [Outside] - Within 2 Weeks Deja Gregorio MD [Med Staff - Active Staff] - Disposition Disposition (needs filled in before D/C Order can be placed): Home, Self Care Charges/Coding Visit Charges Inpatient E&M: 28309 Disch Hosp >30min 01/10/25 0850 Cosigner Signature (if applicable): CC: Dr. Anshul Lemus DO; Dr. Deja Gregorio MD; No Primary Care Physician~ Signed [facility]07-14-2025 [facility] Medical Records Department [address] [place] [address] Discharge Summary 01/10/25 0841 MR#: [id number] Acct: [id number] Name: CARLO MEDINA Rep #: [id number] : 1980 44 From: Anshul Lemus DO PCP: Care Physician,No Primary Status:ADM IN Location: [facility] [id number] Providers Date of Admission: 01/04/25 Primary Care [...] larger hospital that would do that including [facility], [facility] Plan Feet edema: More notably [...] History of noncompliance: Per previous documentation from [facility] as well as [facility]. Patient is steadfast in regards to doing only what he wants to do despite (more content not included)...[facility]07-14-2025 Progress note [facility] Medical Records Department [address] [place] [address] Progress Note - Hospitalist 01/10/25 0811 MR#: [id number] Acct: [id number] Name: CARLO MEDINA Rep #:[id number] : 1980 44 From: Anshul Lemus DO PCP: Care Physician,No Primary Status :ADM IN Location: [place] [address] Reason for Visit Chief Complaint: Shortness of [...] larger hospital that would do that including [facility], [facility] PLAN: Plan Feet edema: More [...] History of noncompliance: Per [facility] documentation [facility]. 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 Anddiscussed with him in the presence that [...] Cosigner Signature (if applicable): CC: ~ Signed [facility]07-13-2025 Progress note Author Anshul Lemus [facility] Note Date/Time January 09, 2025 12:2 8pm [facility] Medical Records Department [address] [place] [address] Progress Note - Hospitalist 01/09/25 0748 MR#: [id number] Acct: [id number] Name: CARLO MEDINA Rep #:[id number] : 1980 44 From: Anshul Lemus DO PCP: Care Physician,No Primary Status :ADM IN Location: [place] [address]- 1 Reason for Visit Reason for Visit: [...] History of noncompliance: Per previous documentation from [facility]. Patient is steadfast in regards to [...] if he had reservations about going to [facility], or much of his care had [...] been here. Charges/Coding Visit Charges Inpatient E&M: 74529 Subs Hosp L3 01/09/25 1228 <Electronically signed by Anshul Lemus DO> Cosigner Signature (if applicable): CC: ~ Signed [facility] Work Phone: 1([phone]) 954-602407-13-2025 Progress note [facility] Medical Records Department [address] [place] [address] Progress Note - Hospitalist 01/09/2548 MR#: [id number] Acct: [id number] Name: CARLO MEDINA Rep #:[id number] : 1980 44 From: Anshul Lemus DO PCP: Care Physician,No Primary Status :ADM IN Location: [place] [address]- 1 Reason for Visit Reason for Visit: [...] History of noncompliance: Per previous documentation from [facility]. Patient is steadfast in regards to [...] if he had reservations about going to [facility], or much of his care had [...] been here. Charges/Coding Visit Charges Inpatient E&M: 27406 Subs Hosp L3 01/09/25 1228 Cosigner Signature (if applicable): CC: ~ Signed [facility]07-12-2025 Progress note Author Anshul Lemus [facility] Note Date/Time January 08, 2025 8:44 am [facility] Medical Records Department [address] [place] [address] Progress Note - Hospitalist 01/08/25749 MR#: [id number] Acct: [id number] Name: CARLO MEDINA Rep #:[id number] : 1980 44 From: Anshul Lemus DO PCP: Care Physician,No Primary Status :ADM IN Location: [place] [address] Reason for Visit Reason for Visit: Diagnoses [...] History of noncompliance: Per previous documentation from [facility]. Patient is steadfast in [...] if he had reservations about going to [facility], or much of his care had been or [facility] where he had been recently. I told him that we could gethim into another hospital to be seen by other specialists. He continued to decline any transfer at this time. Greater than 50 minutes spent discussing with the patient, nursing as above. Charges/Coding Visit Charges Inpatient E&M: 31229 Subs Hosp L3 01/08/25 0844 <Electronically signed by Anshul Lemus DO> Cosigner Signature (if applicable): CC: ~ Signed [facility] Work Phone: 1(881) 701-285107-12-2025 Progress note [facility] Medical Records Department [address] [place] [address] Progress Note - Hospitalist 01/08/25 0750 MR#: [id number] Acct: [id number] Name: CARLO MEDINA Rep #:[id number] : 1980 44 From: Anshul Lemus DO PCP: Care Physician,No Primary Status :ADM IN Location: [place] [address] Reason for Visit Reason for Visit: Diagnoses [...] History of noncompliance: Per previous documentation from [facility]. Patient is steadfast in regards to [...] if he had reservations about going to [facility], or much of his care had been or [facility] where he had been recently. I told him thatwe could gethim into another hospital to be seen by other specialists. He continued to decline any t ransfer at this time. Greater than 50 minutes spent discussing with the patient, nursing as above. Charges/Coding Visit Charges Inpatient E&M: 20593 Subs Hosp L3 01/08/25 0844 Cosigner Signature (if applicable): CC: ~ Signed [facility]07-11-2025 Progress note Author Anshul Lemus [facility] Note Date/Time January 07, 2025 4:40 pm [facility] Medical Records Department [address] [place] [address] Progress Note - Hospitalist 01/07/25 0803 MR#: [id number] Acct: [id number] Name: CARLO MEDINA Rep #:[id number] : 1980 44 From: Anshul Lemus DO PCP: Care Physician,No Primary Status :ADM IN Location: [place] [address] Reason for Visit Reason for Visit: Diagnoses [...] History of noncompliance: Per previous documentation from [facility]. Patient is steadfast in regards to [...] the floor. Charges/Coding Visit Charges Inpatient E&M: 40489 Subs Hosp L3 01/07/25 1045 <Electronically signed [...] Cosigner Signature (if applicable): cc: ~* Signed [facility] Work Phone: 1(461) 410-313507-11-2025 Progress note [facility] Medical Records Department [address] [place] [address] Progress Note - Hospitalist 01/07/25 0803 MR#: [id number] Acct: [id number] Name: CARLO MEDINA Rep #:[id number] : 1980 44 From: Anshul Lemus DO PCP: Care Physician,No Primary Status :ADM IN Location: [place] [address] Reason for Visit Reason for Visit: Diagnoses [...] History of noncompliance: Per previous documentation from [facility]. Patient is steadfast in regards to [...] the floor. Charges/Coding Visit Charges Inpatient E&M: 01169 [facility] Hosp 01/07/25 1045 Cosigner Signature (if applicable): [...] Cosigner Signature (if applicable): cc: ~* Signed [facility]07-11-2025 Consult note Author Lavon Campo [facility] Note Date/Time January 07, 2025 2:37 pm [facility] Medical Records Department [address] [place] [address] Consultation - Cardiology 01/07/25 1336 MR#: [id number] Acct: [id number] Name: CARLO MEDINA Rep #:[id number] : 1980 44 From: Lavon Campo MD PCP: Care Physician,No Primary Status :ADM IN Location: [place] [address] Assessment & Plan Assessment/Plan (1) HFrEF (heart [...] and SGLT2 Recommend transferring the patient to [facility] for BiV evaluation. Noncompliance is a [...] time. Has had numerous hospitalizations over at [facility] and recently was over at [facility] in September. 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 [facility] Medical History Kidney disease Non-smoker Irregular heart [...] applicable): CC: No Primary Care Physician~ Signed [facility] Work Phone: 1(271) 257-630807-11-2025 Consult note [facility] Medical Records Department [address] [place] [address] Consultation - Cardiology 01/07/25 1336 MR#: [id number] Acct: [id number] Name: CARLO MEDINA Rep #:[id number] : 1980 44 From: Lavon Campo MD PCP: Care Physician,No Primary Status :ADM IN Location: [place] [address] Assessment & Plan Assessment/Plan (1) HFrEF (heart [...] and SGLT2 Recommend transferring the patient to [facility] for BiV evaluation. Noncompliance is a [...] time. Has had numerous hospitalizations over at [facility] and recently was over at [facility] in September. 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 [facility] Medical History Kidney disease Non-smoker Irregular heart [...] applicable): CC: No Primary Care Physician~ Signed [facility]07-10-2025 Progress note Author Anshul Lemus [facility] Note Date/Time January 06, 2025 2:08 pm [facility] Medical Records Department [address] [place] [address] Progress Note - Hospitalist 01/06/25822 MR#: [id number] Acct: [id number] Name: CARLO MEDINA Rep #:[id number] : 1980 44 From: Anshul Lemus DO PCP: Care Physician,No Primary Status :ADM IN Location: [place] [id number]- 1 Reason for Visit Reason for Visit: [...] 01/05/25 01/06/25 23:59 23:59 23:59 Intake Total 1944 / 1944 170 / 170 Output Total 1350 / [...] % (Auto) 65.7, Lymph % (Auto) 25.5, [place] % (Auto) 7.4, Eos % (Auto) 0.6, [...] % (Auto) 61.6, Lymph % (Auto) 28.0, [place] % (Auto) 8.9, Eos % (Auto) 1.0, [...] History of noncompliance: Per [facility] documentation [facility]. Patient is steadfast in regards to [...] to be discharged as early as the 11th. I brought this up to the patient's attention and he stated that would not work as his girlfriend has something else going on that day. Did discuss with case management. Charges/Coding Visit Charges Inpatient E&M: 57499 Subs Hosp L2 01/06/25 2217 <Electronically signed by Anshul Lemus DO> Cosigner Signature (if applicable): CC: ~ Signed [facility] Work Phone: [phone]) 630-646907-10-2025 Progress note [facility] Medical Records Department [address] [place] [address] Progress Note - Hospitalist 01/06/25822 MR#: [id number] Acct: [id number] Name: CARLO MEDINA Rep #:[id number] : 1980 44 From: Anshul Lemus DO PCP: Care Physician,No Primary Status :ADM IN Location: [place] [address] Reason for Visit Reason for Visit: Diagnoses [...] % (Auto) 65.7, Lymph % (Auto) 25.5, [place] % (Auto) 7.4, Eos % (Auto) 0.6, [...] % (Auto) 61.6, Lymph % (Auto) 28.0, [place] % (Auto) 8.9, Eos % (Auto) 1.0, [...] History of noncompliance: Per previous documentation from [facility] as well [facility]. Patient is steadfast [...] case management. Charges/Coding Visit Charges Inpatient E&M: 81489 Subs Hosp L2 01/06/25 6204 Cosigner Signature (if applicable): CC: ~ Signed [facility]07-09-2025 Progress note Author Anshul Lemus [facility] Note Date/Time January 05, 2025 2:56p m [facility] Medical Records Department [address] [place] [address] Progress Note - Hospitalist 01/05/25 0805 MR#: [id number] Acct: [id number] Name: CARLO MEDINA Rep #:[id number] : 1980 44 From: Anshul Lemus DO PCP: Care Physician,No Primary Status :ADM IN Location: [place] [address] Reason for Visit Reason for Visit: Diagnoses [...] % (Auto) 59.5, Lymph % (Auto) 30.6, [place] % (Auto) 9.1, Eos % (Auto) 0.3, [...] Sens 45 H, [place] [address] H, Total Protein 6.8, Albumin 3.6, Globulin 3.2, Lipase 15 01/04/25 11:20: Troponin T Hi Sens 2 Hr 42 H 01/04/25 13:36: Troponin T Hi Sens 4Hr 45 H Radiography Diagnostic Testing: Radiology Impression Chest X-Ray 01/04/25 08:25 IMPRESSION: Bibasilar atelectasis or pneumonia. Reading Location: [facility] Abdomen Ultrasound 01/04/25 11:03 IMPRESSION: 1. Ascites. 2. Fatty infiltration of the liver. Reading Location: [facility] Echocardiogram 01/04/25 14:32 Interpretation Summary Severely dilated left ventricle. The left ventricular ejection fraction is 15 %. Stage 3 diastolic dysfunction. The inferior vena cava is dilated Mild (1+) aortic valve insufficiency. Small (<1.0 cm) pericardial effusion. Ordering Physician: Anshul Lemus Performed By: Amrita Vail SUNITA Rhythm Strip Rhythm Strip: Sinus bradycardia Rate: [...] History of noncompliance: Per previous [facility] Patient is steadfast in regards to doing [...] his cardiomyopathy. Charges/Coding Visit Charges Inpatient E&M: 82187 Subs Hosp L2 01/05/25 5186 <Electronically signed by Anshul Lemus DO> Cosigner Signature (if applicable): CC: ~ Signed [facility] Work Phone: 1(711) 822-553507-09-2025 Progress note [facility] Medical Records Department [address] [place] [address] Progress Note - Hospitalist 01/05/25804 MR#: [id number] Acct: [id number] Name: CARLO MEDINA Rep #:[id number] : 1980 44 From: Anshul Lemus DO PCP: Care Physician,No Primary Status :ADM IN Location: [place] [address] Reason for Visit Reason for Visit: Diagnoses [...] % (Auto) 59.5, Lymph % (Auto) 30.6, [place] % (Auto) 9.1, Eos % (Auto) 0.3, [...] HighSens 45 H, [place] [address] H, Total Protein 6.8, Albumin 3.6, Globulin 3.2, Lipase 15 01/04/25 11:20: Troponin T Hi Sens 2 Hr 42 H 01/04/25 13:36: Troponin T Hi Sens 4Hr 45 H Radiography Diagnostic Testing: Radiology Impression Chest X-Ray 01/04/25 08:25 IMPRESSION: Bibasilar atelectasis or pneumonia. Reading Location: [facility] Abdomen Ultrasound 01/04/25 11:03 IMPRESSION: 1. Ascites. 2. Fatty infiltration of the liver. Reading Location: [facility] Echocardiogram 01/04/25 14:32 Interpretation Summary Severely dilated [...] History of noncompliance: Per previous documentation from [facility]. Patient is steadfast in regards to [...] his cardiomyopathy. Charges/Coding Visit Charges Inpatient E&M: 54238 Subs Hosp L2 01/05/25 9100 Cosigner Signature (if applicable): CC: ~ Signed [facility]07-08-2025 Discharge summary Author [facility] Note Date/Time January 04, 2025 4:15p m [facility] Medical Records Department [address] [place] [address] Emergency Department Summary 01/04/25 MR#: [id number] Acct: [id number] Name: CARLO MEDINA Rep #:[id number] : 1980 44 From: Deborah Ravi PCP: Care Physician,No Primary Status :ADM IN Location: [place] [address] HPI History of Present Illness Chief Complaint: [...] He states henormally receives his care through [facility] because of his insurance but has had [...] fluid overload. Note from inpatient encounter at [facility] on 10/26/2024 she is at patient [...] appears significantly fluid overloaded. Discharge summary from [facility] on 10/17 through 10/26 reviewed. Patient [...] went to cardiogenic shock was admitted to [facility]. There he refused IV therapies and base of intervention such as Savery or right heart catheterization. Lab work shows [...] % (Auto) 59.5 Lymph % (Auto) 30.6 [place] % (Auto) 9.1 Eos % (Auto) 0.3 [...] 4Hr 45 [place] [address] H Total Protein 6.8 Albumin 3.6 Globulin 3.2 Lipase 15 Radiography Diagnostic Testing: Clinical Impression(s) from Imaging Studies Chest X-Ray 01/04/25 08:25 IMPRESSION: Bibasilar atelectasis or pneumonia. Reading Location: [facility] Abdomen Ultrasound 01/04/25 11:03 IMPRESSION: 1. Ascites. 2. Fatty infiltration of the liver. Reading Location: [employer] [facility] Rhythm Strip Rhythm Strip: Sinus bradycardia Rate: [...] Management Discussion w/another healthcare provider: Hospitalist and [place] [facility] (Cardiology-felt that patient was fine to be diuresed admitted to medicine service) Discharge Plan Dx/Rx/DC Orders Clinical Impression: CKD stage 3b, GFR 30-44 ml/min, HFrEF (heart failure with reduced ejection fraction), Elevated bilirubin, Abdominal ascites Disposition Disposition: Acute Care Hospital [facility] Discharge Date/Time: 01/04/25 14:00 What to do if you have Problems For any increased pain, shortness of breath, bleeding, nausea or vomiting, chestpain, or any unexpected problems, contact your Primary Care Provider. Call [facility] ([phone]) or report to the closest Emergency Room. Call 911 if necessary. 01/04/25 1615 <Electronically signed by Deborah Penaloza DO> Cosigner Signature (if applicable): CC: No Primary Care Physician ~ Signed [facility] Work Phone: [phone]) 398-189407-08-2025 Discharge summary [facility] Medical Records Department [address] [place] [address] Emergency Department Summary 01/04/25 MR#: [id number] Acct: [id number] Name: CARLO MEDINA Rep #:[id number] : 1980 44 From: Deborah Ravi PCP: Care Physician,No Primary Status :ADM IN Location: [address] History of Present Illness Chief Complaint: [...] legs. He states henormallyreceives his care through [facility] because of his insurance but has had a hard time following up and getting to appointments because of transportation andthe distance. States he has been compliant with his medications. Is in the process of trying to establish down here in [place]. Denies any chest pain. Denies any fever or chills. Denies any change in urination. Patient does notknow what triggered his fluid overload. Note from inpatient encounter at [facility] on 10/26/2024 she is at patient [...] appears significantly fluid overloaded. Discharge summary from [facility] on 10/17 through 10/26 reviewed. Patient [...] went to cardiogenic shock was admitted to [facility]. There he refused IV therapies and base of intervention such as Savery or right heart catheterization. Lab work shows elevation of his creatinine of 2.03 with mild elevation of his BUN of 30. His creatinine baseline appears to be 2.0 per [facility] documentation. He has elevation of his bilirubin [...] % (Auto) 59.5 Lymph % (Auto) 30.6 [place] % (Auto) 9.1 Eos % (Auto) 0.3 [...] 4Hr 45 [place] [address] H Total Protein 6.8 Albumin 3.6 Globulin 3.2 Lipase 15 Radiography Diagnostic Testing: Clinical Impression(s) from Imaging Studies Chest X-Ray 01/04/25 08:25 IMPRESSION: Bibasilar atelectasis or pneumonia. Reading Location: [facility] Abdomen Ultrasound 01/04/25 11:03 IMPRESSION: 1. Ascites. 2. Fatty infiltration of the liver. Reading Location: [facility] Rhythm Strip Rhythm Strip: Sinus bradycardia Rate: [...] Management Discussion w/another healthcare provider: Hospitalist and [place] (Cardiology-felt that patient was fine to be diuresed admitted to medicine service) Discharge Plan Dx/Rx/DC Orders Clinical Impression: CKD stage 3b, GFR 30-44 ml/min, HFrEF (heart failure with reduced ejection fraction), Elevated bilirubin, Abdominal ascites Disposition Disposition: Acute Care Hospital [facility] Discharge Date/Time: 01/04/25 14:00 What to do if you have Problems For any increased pain, shortness of breath, bleeding, nausea or vomiting, chestpain, or any unexpected problems, contact your Primary Care Provider. Call [facility] ([phone]) or report tothe closest Emergency Room. Call 911 if necessary. 01/04/25 1615 Cosigner Signature (if applicable): CC: No Primary Care Physician ~ Signed [facility]07-08-2025 History and physical note Author Anshul Lemus [facility] Note Date/Time January 04, 2025 2:06p m [facility] Medical Records Department [address] [place] [address] H&P Exam - Hospitalist 01/04/25 1351 MR#: [id number] Acct: [id number] Name: CARLO MEDINA Rep #:[id number] : 1980 44 From: Anshul Lemus DO PCP: Care Physician,No Primary Status :ADM IN Location: [facility] [id number]- 1 HPI - General General Date of [...] time. Has had numerous hospitalizations over at [facility] and recently was over at [facility] in September. It is documented throughout his charts at [facility] as well as [facility] that he has a history of [...] still wants time to think about it. [facility] Medical History (Updated 01/04/25 @ 14:00 by [...] % (Auto) 59.5, Lymph % (Auto) 30.6, [place] % (Auto) 9.1, Eos % (Auto) 0.3, [...] Sens 45 H, [place] [address] H, Total Protein 6.8, Albumin 3.6, Globulin 3.2, Lipase 15 01/04/25 11:20: Troponin T Hi Sens 2 Hr 42 H EKG Initial EKG: Attestation: I personally reviewed and interpreted this EKG as follows: EKG Rhythm Intrepretation: Sinus Bradycardia Imaging Radiology Impression Chest X-Ray 01/04/25 08:25 IMPRESSION: Bibasilar atelectasis or pneumonia. Reading Location: [facility] Abdomen Ultrasound 01/04/25 11:03 IMPRESSION: 1. Ascites. 2. Fatty infiltration of the liver. Reading Location: [facility] Assessment & Plan Assessment/Plan (1) HFrEF (heart [...] History of noncompliance: Per previous [facility] Patient is steadfast in regards to doing [...] his cardiomyopathy. Charges/Coding Visit Charges Inpatient E&M: 59927 Init Hosp L3 01/04/25 1406 <Electronically signed by Anshul Lemus DO> Cosigner Signature (if applicable): CC: Dr. Anshul Lemus, ; No Primary Care Physician~ Signed [facility] Work Phone: 1(155) 327-604507-08-2025 Evaluation note* Diagnosis Onset Date Resolution Status Admit Date CKD stage 3b, GFR 30-44 ml/min acute January 04, 2025 1:40pm Elevated bilirubin acute January 042024 1:40pm Heart block acute January 04 1:40pm HFrEF (heart failure with re duced ejection fraction) acute January 04 1:40pm Hypokalemia acute January 04 1:40pm [facility] Work Phone: 1(498) 951-580407-08-2025 Evaluation note* Diagnosis Onset Date Resolution Status Admit Date Heart block acute January 04 1:40pm Hypokalemia resolved January 04 1:40pm CKD stage 3b, GFR 30-44 ml/min inact dai January 04, 2025 1:40pm Elevated bilirubin inactive January 042024 1:40pm HFrEF (heart failure with reduced ejection fraction) inactive January 04, 2025 1:40pm [facility] Work Phone: 1(594) 976-195707-08-2025 Evaluation note* Diagnosis Onset Date Resolution Status Admit Date CKD stage 3b, GFR 30-44 ml/min acute January 04, 2025 1:40pm Heart block acute January 04 1:40pm HFrEF (heart failure with re duced ejection fraction) acute January 04 1:40pm Hypokalemia resolved January 04 1:40pm Elevated bilirubin inactive January 042024 1:40pm CKD stage 3b, GFR 30-44 ml/min acute February 10, 2025 2:34pm Heart block acute February 10, 2025 2:34pm HFrEF (heart failure with re duced ejection fraction) acute February 10, 2025 2:34pm Abdominal ascites acute 2025 10:01pm Chronic anticoagulation acute A ugust 2024 10:01pm CKD stage 3b, GFR 30-44 ml/min acute 2025 10:01pm HFrEF (heart failure with re duced ejection fraction) acute 2025 10:01pm Hyperbilirubinemia acute 2025 10:01pm Hypoxia acute February 13, 025 10:01pm Medical non-compliance acute Au almas 2024 10:01pm Respiratory insufficiency acute 2025 10:01pm Chronic atrial fibrillation chronic 2025 10:01pm [facility] Work Phone: 1(422) 792-842407-08-2025 History and physical note [facility] Medical Records Department [address] [place] [address] H&P Exam - Hospitalist 01/04/25 1351 MR#: [id number] Acct: [id number] Name: CARLO MEDINA Rep #:[id number] : 1980 44 From: Anshul Lemus DO PCP: Care Physician,No Primary Status :ADM IN Location: [facility] [id number] HPI - General General Date of Service: 01/04/25 Chief Complaint: Shortness of breath. Edema. HPI Narrative CARLO MEDINA, is a 44 M who presents with progressive shortness of breath and edema. Patient is [id number] male with a history of nonischemic cardiomyopathy with an ejection fraction of 20%. States that he had a left heart catheterization that showed no obstructive coronary disease. They have attempted right heart catheterization but was unsuccessful and the patient declined further attempts. Resents with increased weight gain of about 10 pounds with period time. Has had numerous hospitalizations over at [facility] and recently was over at [facility] in September. It is documented throughout his charts at [facility] as well as [facility] that he has a history of [...] he stillwants time to think about it. [facility] Medical History (Updated 01/04/25 @ 14:00 by [...] % (Auto) 59.5, Lymph % (Auto) 30.6, [place] % (Auto) 9.1, Eos % (Auto) 0.3, [...] HighSens 45 H, [place] [address] H, Total Protein 6.8, Albumin 3.6, Globulin 3.2, Lipase 15 01/04/25 11:20: Troponin T Hi Sens 2 Hr 42 H EKG Initial EKG: Attestation: I personally reviewed and interpreted this EKG as follows: EKG Rhythm Intrepretation: Sinus Bradycardia Imaging Radiology Impression Chest X-Ray 01/04/25 08:25 IMPRESSION: Bibasilar atelectasis or pneumonia. Reading Location: [facility] Abdomen Ultrasound 01/04/25 11:03 IMPRESSION: 1. Ascites. 2. Fatty infiltration of the liver. Reading Location: [facility] Assessment & Plan Assessment/Plan (1) HFrEF (heart [...] History of noncompliance: Per previous documentation from [facility] as well [facility]. Patient is steadfast in regards to [...] his cardiomyopathy. Charges/Coding Visit Charges Inpatient E&M: 48907 Init Hosp L3 01/04/25 1406 Cosigner Signature (if applicable): CC: Dr. Anshul Lemus, ; No Primary Care Physician~ Signed [facility]07-08-2025 Radiology Diagnostic study note [facility] Imaging Services [address] [place] [address] Abdomen Limited MR#: [id number] Acct: [id number] Name: CARLO MEDINA Rep #: [id number] : 1980 M 44 From: Mallorie Ford MD PCP: Care Physician,No Primary Status: REG ER Study:Abdomen Limited Date of Exam: 02/21 Exam# [id number] Ordering Dr: Kelly Penaloza DO EXAM: US Abdomen Limited, Right Upper Quadrant CLINICAL INDICATION: ELEVATED LIVER ENZYMES AND BILI TECHNIQUE: Real-time ultrasound of the right upper quadrant with image documentation. COMPARISON: No relevant prior studies available. FINDINGS: LIVER: Liver measures up to 15.9 cm. Fatty infiltration of the liver. No intrahepatic bile duct dilation. GALLBLADDER: Negative Melendez's sign was reported by the ethanol quality leader. No gallstones. COMMON BILE DUCT: Unremarkable as [...] Fatty infiltration of the liver. Reading Location: [facility] CC: Dr. Deborah Penaloza DO; No Primary Care Physician ~ Plant Wrapper: Signed [facility]07-08-2025 Radiology Diagnostic study note [facility] Imaging Services [address] [place] [address] Chest PA and Lateral MR#: [id number] Acct: [id number] Name: CARLO MEDINA Rep #: [id number] : 1980 M 44 From: Mallorie Ford MD PCP: Care Physician,No Primary Status: REG ER Study:Chest PA and Lateral Date of Exam: 01/04/25 Exam# [id number] Ordering Dr: Kelly Penaloza DO EXAM: XR Chest, 2 Views CLINICAL INDICATION: SOB TECHNIQUE: Frontal and lateral views of the chest. COMPARISON: No relevant prior studies available. FINDINGS: LUNGS AND PLEURAL SPACES: Bibasilar atelectasis or pneumonia. No pneumothorax. HEART: Unremarkable. No cardiomegaly. MEDIASTINUM: Unremarkable. Normal mediastinal contour. BONES/JOINTS: Unremarkable. No acute fracture. RAD/Chest PA and Lateral IMPRESSION: Bibasilar atelectasis or pneumonia. Reading Location: [facility] CC: Dr. Deborah Penaloza DO; No Primary Care Physician ~ Plant Wrapper: Signed [facility]06-27-2025 Telephone encounter Note* Telephone Encounter - Jaden Milner - 12/24/2024 4:00 PM EDT Last visit with PCP (YUVAL GAYLE) was 09/17/2024 No future appointment with PCP (YUVAL GAYLE) Thank you. [id number] Miscellaneous Notes* Telephone Encounter - Jaden Milner - 12/24/2024 4:00 PM EDT Last visit with PCP (YUVAL GAYLE) was 09/17/2024 No future appointment with PCP (YUVAL GAYLE) Thank you. documented in this [id number] Telephone encounter Note* Telephone Encounter - Yuval [...] 162 [phone] [id number] Miscellaneous Notes* Telephone Encounter - Yuval Gayle [...] 8 values) 10/25/2024 10/21/2024 10/20/2024 10/18/2024 10/17/2024 10/06/202410/05/2024 10/02/2024 3:03 PM 10:01 AM 6:29 AM [...] with PCP (YUVAL GAYLE) documented in this [id number] Telephone encounter Note* Telephone Encounter - Cornelia Dash RPh - 12/13/2024 1:20 PM EDT Requested Prescriptions Pending Prescriptions Disp Refills Apixaban (ELIQUIS) 5 MG tablet 28 Tablet 0 Sig: Take 1 Tablet by mouth 2 times daily. Last visit with PCP (YUVAL GAYLE) was 09/17/2024 No future appointment with PCP (YUVAL GAYLE) [id number] Telephone encounter Note* Telephone Encounter - Eva Isaacs MA - 12/06/2024 8:47 AM EDT No response letter printed and mailed to patient [id number] Miscellaneous Notes* Telephone Encounter - Eva Isaacs MA - 12/06/2024 8:47 AM EDT No response letter printed and mailed to patient * Telephone Encounter - Eva Isaacs MA - 12/02/2024 2:43 PM EDT Attempted to contact patient. Left voicemail message on listed contact # to call userADgents [phone]. Asked patient to reference #99 when calling back to our office. Ok to relay message below. Please assist patient in scheduling appointment when he returns call. * Telephone Encounter - Eva Isaacs MA - 11/29/2024 11:51 AM EDT Attempted to contact patient. Left voicemail message on listed contact # to call [employer] [phone]. Asked patient to reference #99 when calling [...] if continued therapy necessary. documented in this [id number] Telephone encounter Note* Telephone Encounter - Eva Isacas MA - 12/02/2024 2:43 PM EDT Attempted to contact patient. Left voicemail message on listed contact # to call [employer] [phone]. Asked patient to reference #99 when calling back to our office. Ok to relay message below. Please assist patient in scheduling appointment when he returns call. [id number] Miscellaneous Notes* Telephone Encounter - Eva Isaacs MA - 12/02/2024 2:43 PM EDT Attempted to contact patient. Left voicemail message on listed contact # to call [employer] [phone]. Asked patient to reference #99 when calling back to our office. Ok to relay message below. Please assist patient in scheduling appointment when he returns call. * Telephone Encounter - Eva Isaacs MA - 11/29/2024 11:51 AM EDT Attempted to contact patient. Left voicemail message on listed contact # to call [employer] [phone]. Asked patient to reference #99 when calling [...] if continued therapy necessary. documented in this [id number] Telephone encounter Note* Telephone Encounter - Eva Isaacs MA - 11/29/2024 11:51 AM EDT Attempted to contact patient. Left voicemail message on listed contact # to call [employer] [phone]. Asked patient to reference #99 when calling back to our office. Ok to relay message below. Please assist patient in scheduling appointment, [id number] Miscellaneous Notes* Telephone Encounter - Eva Isaacs MA - 11/29/2024 11:51 AM EDT Attempted to contact patient. Left voicemail message on listed contact # to call [employer] [phone]. Asked patient to reference #99 when calling [...] if continued therapy necessary. documented in this [id number] Telephone encounter Note* Telephone Encounter - Jovana Patel - 11/26/2024 11:01 AM EDT Patient's significant other called in checking on the refill request for Apixaban (ELIQUIS) 5 MG tablet. [facility] gave [facility] patient a 3-day emergency supply because he is completely out of medication. Please contact the patient/pharmacy to discuss this issue as well as a plan of action. [id number] Miscellaneous Notes* Telephone Encounter - Jovana Patel [...] if continued therapy necessary. documented in this [id number] Telephone encounter Note* Telephone Encounter - Leatha Batista PharmD - 11/23/2024 9:20 AM EDT This patient is requesting a refill on a medication that was prescribed in an ED, Urgent Care or during a Hospital Discharge. Please approve if appropriate or contact patient if not appropriate. Pharmacy was unable to determine appropriateness or if continued therapy necessary. [facility] Phone: 1([phone]) 356-640804-30-2025 Telephone encounter Note* Telephone Encounter - Radha Flores RN - 10/27/2024 11:03 AM EDT Transitional Care Management Contact Initial communication post-discharge: 1st attempt: 10/27/24, 11:03 AM -Left message 2nd attempt: 10/29/24, 10:52 AM -Left message 3rd attempt: 11/01/24, 8:56 AM-Left message Letter mailed: 11/01/24 Patient no longer meet Tools Developer Coordination services due to one or more of the following: [] Well connected to medical home and/or other services [] Identified Needs/Goals have been met [x] Unable to contact patient (at least 3 documented attempts) [] Is not adherent to Care Plan or Goals [] Declined Services [] Rolled off insurance plan or no longer MH patient [] Living situation changed; ie. SNF, Retirement, Hospice [] PCP recommends deferral [] Patient transferred to Test Evaluator or Ebd Teacher [] No readmissions 30 days post discharge. [] DESEAN Bee, trading analystInsurance Assistant [phone] [id number] Miscellaneous Notes* Telephone Encounter - Radha Flores RN - 10/27/2024 11:03 AM EDT Transitional Care Management Contact Initial communication post-discharge: 1st attempt: 10/27/24, 11:03 AM -Left message 2nd attempt: 10/29/24, 10:52 AM -Left message 3rd attempt: 11/01/24, 8:56 AM-Left message Letter mailed: 11/01/24 Patient no longer meet Tools Developer Coordination services due to one or more of the following: [] Well connected to medical home and/or other services [] Identified Needs/Goals have been met [x] Unable to contact patient (at least 3 documented attempts) [] Is not adherent to Care Plan or Goals [] Declined Services [] Rolled off insurance plan or no longer MH patient [] Living situation changed; ie. SNF, Retirement, Hospice [] PCP recommends deferral [] Patient transferred to Test Evaluator or Ebd Teacher [] No readmissions 30 days post discharge. [] DESEAN Bee, trading analystInsurance Assistant [phone] documented in this [id number] History of Present illness Narrative* Giselle Pierre [...] continues to refuse medical care/medications. Selena Feliz FREELANCE COPYWRITER, NURSING TECHN Inpatient Ebd Teacher * Giselle Pierre RN - 10/26/2024 9:01 [...] does not follow with , lives near [facility] Problems as of 10/25/2024 Acute deep vein thrombosis (DVT) of lower extremity (HCC) Acute kidney injury superimposed on stage 3b chronic kidney disease Pneumonia of right lower lobe due to infectious organism Acute on chronic HFrEF (heart failure with reduced ejection fraction) (HCC) Cirrhosis (HCC) Hypomagnesemia Hypokalemia RESOLVED: Cardiogenic shock (HCC) Ramos Pope MD, [facility] Medicine Physician Product Technology Scientistdevice test engineer * Anshul Laird, SURGICAL ORDERLY-NURSE ADVISOR - 10/25/2024 1:16 PM EDT [facility] Medicine Progress Note Carlo Medina Age [age] year old male [id number] AC4-703/2 Admitted 10/17/2024 6:40 PM Hospital Day: [...] started in the CICU. Transferred out to [facility] in stable condition. Patient completed abxcourse 10/23. [...] - liver clinic as an outpatient - [facility] when patient willing Hypomagnesemia Level 1.5 [...] he allows GDMT optimization. Anshul Laird MSN, SURGICAL ORDERLY, AGACNP- Team 9- [facility] Medicine Pager # [phone] * Selena Feliz LSW - 10/25/2024 10:54 AM EDT SOCIAL WORK Per interdisciplinary rounds, pt is not medically cleared for discharge. NIR is 10/26/24. PT to work with pt for homegoing recommendations. Plan is anticipated for pt to discharge home, pending PT eval. SW will continue to follow. Selena Feliz MSW, NURSING TECHN Inpatient Ebd Teacher * Sara Tineo MD - 10/24/2024 12:04 PM EDT Images from the original note were not included. Hospital Medicine Progress Note Carlo Medina Age [age] year old male [id number] AC4-703/2 Admitted 10/17/2024 6:40 PM Hospital Day: [...] started in the CICU. Transferred out to [facility] in stable condition. Patient completed abxcourse 10/23. [...] 1+ peripheral edema Skin: warm, dry Neuro: receivables specialist grossly intact, no focal neurological deficits, A&Ox3 [...] HFrEF (heart failure with reduced ejection fraction) ([facility]) Echo with LVEF 15% - Bumex 1 [...] he allows GDMT optimization Sara Tineo MD [facility] Medicine * Katie Christy LPN - [...] attempting and insisted on a specialist from AIRWAYS OPERATIONS SPECIALIST or IV Team. Rapid Response paged; to bedside to attempt IV placement. Missed first attempt. Pt refused any further attempts at IV placement. MD Tineo notified. * Sara Tineo MD - 10/23/2024 8:32 AM EDT Images from the original note were not included. Hospital Medicine Progress Note Carlo Medina Age [age] year old male [id number] AC4-703/2 Admitted 10/17/2024 6:40 PM Hospital Day: [...] started in the CICU. Transferred out to [facility] in stable condition. Patient completed abxcourse 10/23. [...] 1+ peripheral edema Skin: warm, dry Neuro: receivables specialist grossly intact, no focal neurological deficits, A&Ox3 [...] follow. No weekend SW needs. Selena Feliz FREELANCE COPYWRITER, NURSING TECHN Inpatient Ebd Teacher * Sara Tineo MD - 10/22/2024 7:21 AM EDT Images from the original note were not included. Hospital Medicine Progress Note Carlo Medina Age [age] year old male [id number] 4-703/2 Admitted 10/17/2024 6:40 PM Hospital Day: 6 [...] started in the CICU. Transferred out to [facility] in stable condition INTERVAL HPI: Patient seen [...] 1+ peripheral edema Skin: warm, dry Neuro: receivables specialist grossly intact, no focal neurological deficits, A&Ox3 [...] Carlo Medina Age [age] year old male [id number] AC4-703/2 Admitted 10/17/2024 6:40 PM Hospital Day: [...] started in the CICU. Transferred out to [facility] in stable condition INTERVAL HPI: In bed [...] of this meeting. JAMIE Ford, MADDIE Inpatient Ebd Teacher * Jim Stockton MD - 10/21/2024 10:47 AM EDT Images from the original note were not included. [facility] CICU - Progress Note Carlo Medina Age [age] year old male ROOM: [place] [address] Admitted 10/17/2024 6:40 PM Hospital Day: 5 [...] regarding treatment that pt wishes to receive. SCHULYER, lactic acidosis are improving on repeat labs [...] Partial treatment with likely repeat admissions and skilled nursing decline, or taking an approach that would [...] pending results of today's team introduction to [facility]. -Strict I/Os -K > 4, Mg [...] from the original note were not included. [facility] CICU - Progress Note Carlo Medina Age [age] year old male ROOM: [place] [address]/ Admitted 10/17/2024 6:40 PM Hospital Day: 4 [...] SERVICES No ADMISSION INSURANCE Private Insurance ([facility] [place]) TRANSPORTATION TO AND/OR FROM APPOINTMENTS Family/Friend Provides Ride HOME OXYGEN No HOME HEALTH CARE PRIOR TO ADMISSION No DIALYSIS No DISCUSSSED WHAT HELP PATIENT WOULD NEED Yes SDOH Completed? Yes SDOH Risks Addressed - Do Not complete until all required hernandez are completed Yes DISCHARGE DISPOSITION Home SW following for appropriate dc planning. JAMIE Ford LSW Inpatient Ebd Teacher * Abraham Jean Baptiste PharmD - 10/19/2024 [...] from the original note were not included. [facility] CICU - Progress Note Carlo Medina Age [age] year old male ROOM: [place] [address] Admitted 10/17/2024 6:40 PM Hospital Day: 3 [...] results. New orders received. * Alex Garay [facility] - 10/18/2024 5:39 AM EDT Pharmacokinetic Dosing [...] Department of Pharmacy Services documented in this [id number] NoteThe [facility] Hospital course Narrative* Anshul Laird APRN-CNP - 10/26/2024 9:36 AM EDT Images from the original note were not included. DISCHARGE SUMMARY [address] [address] Carlo Medina Date of : 1980 44 [...] Referral Type: Service Level Authorization Referral Location: [facility] LIVER Number of Visits Requested: 3 Expiration Date: 10/26/25 Future Appointments Date Time Provider Department Center 11/12/2024 8:40 AM Jamal Geronimo MD [facility] 11/17/2024 2:20 PM Disha Brenner MD [facility] He Condition at Discharge unchanged Symptoms to [...] 16.82 (H) Legend: (H) High RESPIRATORY CULTURE, [facility] Order: [id number] Collected 10/18/2024 13:41 Status: Final result Visible to patient: Yes (not seen) Specimen Information: Sputum, expectorated; Respiratory 0 Result Notes Resp Culture Squamous Epithelial Cells present. Recommend submission of another specimen. [place] [facility] Spec[place] Collected: 10/18/24 13:41 Last Resulted: 10/18/24 [...] - TSH: N/A EKG: Sinus Tachycardia, Right [place] Deviation, RBBB Imaging: - CXR 10/17/24 demonstrating [...] started in the CICU. Transferred out to [facility] in stable condition. Patient completed abx course [...] to follow up with HF here in [place] for further discussion. He does not wish to be palliative care/hospice at this time. Follow Up -f/u Mag ANNETTE on -f/u with Dr. Geronimo in cardiology 11/12 -f/u with liver clinic for cirrhosis on 11/17 -f/u with PCP in [place], refusing to get PCP here I provided [...] illness requiring hospital care. Anshul Laird MSN, SURGICAL ORDERLY, [facility]- Team 9- Hospital Medicine Pager # [phone] documented in this [id number] Hospital Discharge instructions* Discharge Instructions* Anshul Laird APRN-CNP - 10/26/2024 9:36 AM EDT Please follow up with heart failure doctor due to your ejection fraction being 15%. Please get repeat labs this week and follow up with your family doctor * Attachments The following attachments cannot be sent through Care Everywhere. * Acute Kidney Injury Discharge Instructions ([place]ozambican) * Heart Failure Discharge Instructions, Adult ([place]ozambican) documented in this [id number] NotePatient called stating IV was causing him pain. IV was assessed no obvious obstruction or infiltrates. Patient given education on the risk of having no IV access. Patient still requesting IV removal. Removed at 1999.[facility] [id number] Evaluation + Plan note* Assessment & Plan Note - Anshul Laird APRN-CNP - 10/25/2024 1:26 PM EDTAssociated Problem(s): Pneumonia of right lower lobe due to infectious organism No leukocytosis, afebrile, stable on room air, procal elevated to 16.8 on admission Given recent hospitalization, treating for HAP - completed course of linezolid and cipro today 10/24 [id number] Evaluation + Plan note* Assessment & Plan [...] as an outpatient - continue GOC discussions [id number] Evaluation + Plan note* Assessment & Plan Note - Anshul Laird APRN-CNP - 10/25/2024 1:26 PM EDTAssociated Problem(s): Acute kidney injury superimposed on stage 3b chronic kidney disease Max creatinine this stay 3.2, down trending to 1.46 which appears to be better than baseline - avoid nephrotoxic agents - repeat bmp as patient will allow [id number] Evaluation + Plan note* Assessment & Plan Note - Anshul Laird APRN-CNP - 10/25/2024 1:26 PM EDTAssociated Problem(s): Cirrhosis (HCC) With hyperbili - liver clinic as an outpatient - [facility] when patient willing [id number] Evaluation + Plan note* Assessment & Plan Note - Anshul Laird APRN-CNP - 10/25/2024 1:26 PM EDTAssociated Problem(s): Hypomagnesemia Level 1.5 10/21 - only agreeable to mag oxide - repeat level in am T [id number] Evaluation + Plan note* Assessment & Plan Note - Anshul Laird APRN-CNP - 10/25/2024 1:26 PM EDTAssociated Problem(s): Hypokalemia Level 3.2 10/21 - he declined potassium PO and IV - BMP as patient will allow T [id number] Evaluation + Plan note* Assessment & Plan Note - Anshul Laird APRN-CNP - 10/25/2024 1:26 PM EDTAssociated Problem(s): Acute deep vein thrombosis (DVT) of lower extremity (HCC) - apixaban 5 mg po bid [id number] Miscellaneous Notes* Assessment & Plan Note - [...] - liver clinic as an outpatient - [facility] when patient willing * Assessment & [...] - liver clinic as an outpatient - [facility] when patient willing * Assessment & [...] course of linezolid and cipro today (d7/) * Assessment & Plan Note - Sara [...] started in the CICU. Transferred out to [facility] in stable condition. Patient completed abxcourse 10/23. [...] Time): Dr. Tineo, Medicine Team 6, 15:35 [facility] Transfer Note Hospital Course: Carlo Medina is [...] DO Internal Medicine, PGY-2 documented in this [id number] Consult note* Maya Hoff, RD - 10/25/2024 [...] intact Eyes/Nose/Mouth: RA Last BM: 10/24 per [facility] Last Emesis: 10/21 x1 - medium, partially [...] none PO Intake: 10/24 - 100% per [facility] Anthropometrics: Height: 6' 1 Current wt: 67.9 [...] (significant). Estimated Energy Needs: using 68 kg 0761-9840 kcal/d 30-35 kcal/kg 80-95 gm pro/d 1.2-1.4 [...] started in the CICU. Transferred out to [facility] in stable condition. Pt completed abx course 10/23. Course c/bpt continued intermittent refusal of medications. Pt reported continued cough and SOB - requested supplemental O2 despite good saturations. After discussion about need for diuretics to help alleviatefluid build up which is causing SOB, pt agreed to Bumex. RD Consult referred by Tax Clerk for wt loss. Pt denied any recent [...] 45 minutes Maya Hoff MS, RD, LD, [facility] Personal pager: [phone] call center coordinator nutrition pager [phone] (from 7am-7pm) [facility] Work Phone: 1([phone]) 814-435104-28-2025 Consult note* Maya Hoff RD - 10/25/2024 [...] intact Eyes/Nose/Mouth: RA Last BM: 10/24 per [facility] Last Emesis: 10/21 x1 - medium, partially [...] none PO Intake: 10/24 - 100% per [facility] Anthropometrics: Height: 6' 1 Current wt: 67.9 [...] (significant). Estimated Energy Needs: using 68 kg 1078-8246 kcal/d 30-35 kcal/kg 80-95 gm pro/d 1.2-1.4 [...] started in the CICU. Transferred out to [facility] in stable condition. Pt completed abx course 10/23. Course c/bpt continued intermittent refusal of medications. Pt reported continued cough and SOB - requested supplemental O2 despite good saturations. After discussion about need for diuretics to help alleviatefluid build up which is causing SOB, pt agreed to Bumex. RD Consult referred by [facility] for wt loss. Pt denied any recent [...] Hoff MS, RD, LD, CNSC Personal pager: [phone] call center coordinator nutrition pager [phone] (from 7am-7pm) * Georgia Abarca, PT - 10/25/2024 10:45 AM EDTAssociated Order(s): IP PHYSICAL THERAPY SERVICE REQUEST PHYSICAL THERAPY ACUTE EVALUATION Referral received, chart reviewed. Patient seen from 1045 to 1108 on 4 [facility] for 23 minutes. Evaluation and [...] don't need oxygen. Patient Identified Goal(s):Return home. CORN SHELLER Status: Patient was independent with ADLs and [...] With Patients permission ordered no equipment via Cloud[employer] Order. If any questions contact [facility] DME Provider at [phone]. 10/25/2024 6 Clicks Basic Mobility PT Difficulty [...] NA = Not Assessed, I = Independent, MT = Modified Independent, Sup = Supervised, Set [...] not included. Dietitian vs DietaryTech: Dietary TechDiet Flight Purser Nutrition Screening Reason for visit: LOS 5 [...] care: 30 minutes PAO Cole (Nutrition) Pager #[phone]. documented in this [id number] Consult note* Tevin Georgia, PT - 10/25/2024 10:45 AM EDTAssociated Order(s): IP PHYSICAL THERAPY SERVICE REQUEST PHYSICAL THERAPY ACUTE EVALUATION Referral received, chart reviewed. Patient seen from 1045 to 1108 on 4 [facility] unit for 23 minutes. Evaluation and treatment [...] don't need oxygen. Patient Identified Goal(s):Return home. CORN SHELLER Status: Patient was independent with ADLs and [...] With Patients permission ordered no equipment via [employer] Order. If any questions contact [facility] DME Provider at [phone]. 10/25/2024 6 Clicks Basic Mobility PT Difficulty [...] NA = Not Assessed, I = Independent, MT = Modified Independent, Sup = Supervised, Set up = Physical Assistance for Set-up Only, Min = Minimal Assistance, Mod = Moderate Assistance, Max = Max assistance; Dep = Dependent; AROM = Active Range of Motion; PROM = Passive Range of Motion; MMT = Manual Muscle Test; LE = Lower Extremity [id number] Evaluation + Plan note* Assessment & Plan Note - Sara Tineo MD - 10/24/2024 12:08 PM EDTAssociated Problem(s): Pneumonia of right lower lobe due to infectious organism No leukocytosis, afebrile, stable on room air, procal elevated to 16.8 on admission Given recent hospitalization, treating for HAP - complete course of linezolid and cipro today (d7/7) T [id number] Evaluation + Plan note* Assessment & Plan [...] outpatient - continue GOC discussions, ?psych consult JgmemUrmmhb90-89-1064 Evaluation + Plan note* Assessment & Plan Note - Sara Tineo MD - 10/24/2024 12:08 PM EDTAssociated Problem(s): Acute kidney injury superimposed on stage 3b chronic kidney disease Max creatinine this stay 3.2, down trending to 1.46 which appears to be better than baseline - avoid nephrotoxic agents - repeat bmp as patient will allow TgpodGapohn50-31-6146 Evaluation + Plan note* Assessment & Plan Note - Sara Tineo MD - 10/24/2024 12:08 PM EDTAssociated Problem(s): Cirrhosis (HCC) With hyperbili - liver clinic as an outpatient - HFP when patient willing WmkntNnqmot23-42-2178 Evaluation + Plan note* Assessment & Plan Note - Sara Tineo MD - 10/24/2024 12:08 PM EDTAssociated Problem(s): Hypomagnesemia Level 1.5 10/21 - only agreeable to mag oxide - repeat level in am T BstdmLclnni32-48-4158 Evaluation + Plan note* Assessment & Plan Note - Sara Tineo MD - 10/24/2024 12:08 PM EDTAssociated Problem(s): Hypokalemia Level 3.2 10/21 - he declined potassium PO and IV again today - BMP in am VfhwrOkwqef82-99-1136 Evaluation + Plan note* Assessment & Plan Note - Sara Tineo MD - 10/24/2024 12:08 PM EDTAssociated Problem(s): Acute deep vein thrombosis (DVT) of lower extremity (HCC) - apixaban 5 mg po bid BdkgyZnvwwx20-51-0634 Evaluation + Plan note* Assessment & Plan Note - Sara Tineo MD - 10/23/2024 11:42 AM EDTAssociated Problem(s): Cirrhosis (HCC) With hyperbili - liver clinic as an outpatient - HFP when patient willing ZeebgUueoja78-28-4800 Evaluation + Plan note* Assessment & Plan Note - Sara Tineo MD - 10/23/2024 11:42 AM EDTAssociated Problem(s): Hypomagnesemia Level 1.5 10/21 - only agreeable to mag oxide - repeat level in am CrhksLlqewt21-67-2152 Evaluation + Plan note* Assessment & Plan Note - Sara Tineo MD - 10/23/2024 11:42 AM EDTAssociated Problem(s): Hypokalemia Level 3.2 10/21 - he declined potassium PO and IV again today - BMP in am T SjbpuLzgjri72-83-8641 Evaluation + Plan note* Assessment & Plan Note - Sara Tineo MD - 10/23/2024 11:42 AM EDTAssociated Problem(s): Acute deep vein thrombosis (DVT) of lower extremity (HCC) - apixaban 5 mg po bid FfhvuMochpr06-25-2787 Evaluation + Plan note* Assessment & Plan Note - Sara Tineo MD - 10/23/2024 11:42 AM EDTAssociated Problem(s): Pneumonia of right lower lobe due to infectious organism No leukocytosis, afebrile, stable on room air, procal elevated to 16.8 on admission Given recent hospitalization, treating for HAP - complete course of linezolid and cipro today (d7/7) [place] [id number] Evaluation + Plan note* Assessment & Plan [...] outpatient - continue GOC discussions, ?psych consult [place] [id number] Evaluation + Plan note* Assessment & Plan Note - Sara Tineo MD - 10/23/2024 11:42 AM EDTAssociated Problem(s): Acute kidney injury superimposed on stage 3b chronic kidney disease Max creatinine this stay 3.2, down trending to 1.46 which appears to be better than baseline - avoid nephrotoxic agents - repeat bmp as patient will allow FfmthSopjhr28-79-1170 Consult note* Mecca Joe - 10/22/2024 1:36 PM EDT Images from the original note were not included. Dietitian vs DietaryTech: Dietary TechDiet Flight Purser Nutrition Screening Reason for visit: LOS 5 [...] care: 30 minutes PAO Cole (Nutrition) Pager #[phone]. [id number] Evaluation + Plan note* Assessment & Plan Note - Sara Tineo MD - 10/22/2024 10:42 AM EDTAssociated Problem(s): Pneumonia of right lower lobe due to infectious organism No leukocytosis, afebrile, stable on room air, procal elevated to 16.8 on admission Given recent hospitalization, treating for HAP - continue linezolid and cipro (d6/7) WsyqjAtqczv25-78-5224 Evaluation + Plan note* Assessment & Plan [...] as an outpatient - continue GOC discussions RkrbcVncukm84-33-6215 Evaluation + Plan note* Assessment & Plan Note - Sara Tineo MD - 10/22/2024 10:42 AM EDTAssociated Problem(s): Cirrhosis (HCC) With hyperbili - liver clinic as an outpatient - HFP when patient willing IufinCiktxj56-86-4471 Evaluation + Plan note* Assessment & Plan Note - Sara Tineo MD - 10/22/2024 10:42 AM EDTAssociated Problem(s): Hypomagnesemia Level 1.5 10/21 - only agreeable to mag oxide - repeat level in am WltxdQivryy10-29-4738 Evaluation + Plan note* Assessment & Plan Note - Sara Tineo MD - 10/22/2024 10:42 AM EDTAssociated Problem(s): Hypokalemia Level 3.2 10/21 - he declined potassium PO and IV again today - BMP in am PojghNiqtkn70-85-0741 Evaluation + Plan note* Assessment & Plan Note - Sara Tineo MD - 10/22/2024 7:22 AM EDTAssociated Problem(s): Acute kidney injury superimposed on stage 3b chronic kidney disease Max creatinine this stay 3.2, down trending to 1.46 which appears to be better than baseline - avoid nephrotoxic agents - repeat bmp in am KjyfvRxqcqg74-13-4766 Evaluation + Plan note* Assessment & Plan Note - Sara Tineo MD - 10/22/2024 7:22 AM EDTAssociated Problem(s): Acute deep vein thrombosis (DVT) of lower extremity (HCC) - apixaban 5 mg po bid AnmihUnnerj64-70-9512 Evaluation + Plan note* Assessment & Plan Note - Leatha Mckeon APRN-CNP - 10/21/2024 6:01 PM EDTAssociated Problem(s): Pneumonia of right lower lobe due to infectious organism No leukocytosis, afebrile, stable on room air, procal elevated to 16.8 Given recent hospitalization, treating for HAP - continue linezolid and cipro NgyjmQpsbbn17-98-8860 Evaluation + Plan note* Assessment & Plan Note - Leatha Mckeon APRN-CNP - 10/21/2024 6:01 PM EDTAssociated Problem(s): Cardiogenic shock (HCC) (Resolved 10/21/2024) Managed in the cicu, at this time has resolved [id number] Evaluation + Plan note* Assessment & Plan [...] as an outpatient - continue GOC discussion T UmnneYvobob57-42-3658 Evaluation + Plan note* Assessment & Plan Note - Leatha Mckeon APRN-CNP - 10/21/2024 6:01 PM EDTAssociated Problem(s): Acute kidney injury superimposed on stage 3b chronic kidney disease Max creatinine this stay 3.2, down trending to 1.46 which appears to be better than baseline - avoid nephrotoxic agents - repeat bmp in am [address]BhodbJolswc07-45-2188 Evaluation + Plan note* Assessment & Plan Note - Leatha Mckeon APRN-CNP - 10/21/2024 6:01 PM EDTAssociated Problem(s): Cirrhosis (HCC) With hyperbili - liver clinic as an outpatient - HFP in am UgodoRspxwm89-32-4827 Evaluation + Plan note* Assessment & Plan Note - Leatha Mckeon APRN-CNP - 10/21/2024 6:01 PM EDTAssociated Problem(s): Hypomagnesemia Level 1.5 this am - only agreeable to mag oxide - repeat level in am QdbzzVufedp51-75-6619 Evaluation + Plan note* Assessment & Plan Note - Leatha Mckeon APRN-CNP - 10/21/2024 6:01 PM EDTAssociated Problem(s): Hypokalemia Level 3.2 - he declined potassium PO and IV - BMP in am QamqbBnmwnl93-87-8879 Evaluation + Plan note* Assessment & Plan Note - Leatha Mckeon APRN-CNP - 10/21/2024 6:01 PM EDTAssociated Problem(s): Acute deep vein thrombosis (DVT) of lower extremity (HCC) - apixaban 5 mg po bid [id number] Hospital Note* Hospital Course - Anhsul Laird APRN-CNP - 10/21/2024 5:42 PM EDT [...] started in the CICU. Transferred out to [facility] in stable condition. Patient completed abxcourse 10/23. Course complicated by patient continued intermittent refusal of medications. 10/25 Attempting lab work on the patient and is agreeable to take his medications today. If stable lab work, will start SLGT2 inhibitor. Nursing staff and nursing aid attempted blood work with no success. Pending IV team to get labs. HrczbYkdyzx50-50-3950 Progress note* Transfer Note - Larry Myers DO - 10/21/2024 11:43 AM EDT Images from the original note were not included. Provider Called Report To (Enter Provider Name, Service, and Time): Dr. Tineo, Medicine Team 6, 15:35 [facility] Transfer Note Hospital Course: Carlo Medina is [...] HAP being treated with ciprofloxacin/linezolid. Transfer to [facility]. Vitals: BP 89/74 (BP Location: [...] goals Larry Myers DO Internal Medicine, PGY-2 [facility] Work Phone: [phone]) 838-679804-22-2025 NoteSecond attempt to collect stat labs, patient refused, pt refused medication ordered for this am , education provided, pt verbalized understanding and continued to refused, MD made aware, not further orders receivedThe [facility] [id number] Emergency department Note* Shari Caal EMR - 10/18/2024 3:32 AM EDT notified of critical LACTATE value of 4.7. Hard copy of results given to . [id number] Emergency department Note* Shari Caal EMR - 10/18/2024 3:32 AM EDT notified of critical LACTATE value of 4.7. Hard copy of results given to . * Niko Villalpando, RUFINA - 10/18/2024 1:25 AM [...] Course: ED Course as of 10/18/24 0335 [place] Oct 17, 20242040 Complete Blood Count W/Diff(!): [...] room at the time of the evaluation. Hr Generalist: not needed - patient preferred language is Mozambican. HPI Pt is a 44 year old [...] Sanderson Course: ED Course as of 10/17/242123 [place] Oct 17, 20242040 Complete Blood Count W/Diff(!): [...] note. Phoebe Sanderson MD documented in this [id number] History and physical note* Jim Stockton MD - 10/18/2024 2:02 AM EDT Images from the original note were not included. [facility] Cardiac Intensive Care Unit - H&P Note Calro Medina Age [age] year old male ROOM: [place] [address] Admitted: 10/17/2024 6:40 PM Hospital Day: 2 [...] - TSH: N/A EKG: Sinus Tachycardia, Right [place] Deviation, RBBB Imaging: - CXR 10/17/24 demonstrating [...] Stratification: Chads-Vasc (stroke risk in non-valvular Afib) [id number] Score: 3 This is based on the [...] stroke risk) The ASCVD Risk score (Mirta DK, et al., 2019) failed to calculate. [place] CAD risk score Cannot assess CHD for [...] with patient or surrogate Jim Stockton MD [id number] History and physical note* Jim Stockton MD - 10/18/2024 2:02 AM EDT Images from the original note were not included. [facility] Cardiac Intensive Care Unit - H&P Note Carlo Medina Age [age] year old male ROOM: [place] [address] Admitted: 10/17/2024 6:40 PM Hospital Day: 2 [...] - TSH: N/A EKG: Sinus Tachycardia, Right [place] Deviation, RBBB Imaging: - CXR 10/17/24 demonstrating [...] Stratification: Chads-Vasc (stroke risk in non-valvular Afib) [id number] Score: 3 This is based on the [...] CHAVIS, et al., 2019) failed to calculate. [place] CAD risk score Cannot assess CHD for [...] surrogate Jim Stockton MD documented in this [id number] Emergency department Note* Niko Villalpando, RUFINA - 10/18/2024 1:[address] RESENDEZ notified of critical LACTATE value of 5.3. Hard copy of results given to Dr. RESENDEZ. [id number] Emergency department Note* Vipul Jose RN - 10/17/2024 10:00 PM EDT Delay in antibiotics d/t no IV access [id number] Physician Emergency department Note* Maurice Wise MD [...] part of lung [J18.9] Maurice Wise MD [id number] Physician Emergency department Note* Vic Sandhu MD [...] room at the time of the evaluation. Hr Generalist: not needed - patient preferred language is Mozambican. HPI Pt is a 44 year old [...] in the resident's note. Phoebe Sanderson MD AtsqbIkgleb78-71-5744 Physician Emergency department Note* Luis Eduardo Bernal DO [...] heart failure (HCC) DVT (deep venous thrombosis) ([facility]) Hypercholesteremia Iron deficiency anemia Stage 2 chronic kidney disease Vitamin D deficiency Patient Active Problem List: CKD (chronic kidney disease) [N18.9] Essential hypertension [I10] Elevated liver enzymes [R74.8] Acute deep vein thrombosis (DVT) of lower extremity ([facility]) [I82.409] HFrEF (heart failure with reduced ejection fraction) ([facility]) [I50.20] History of left bundle branch block (LBBB) [Z86.79] Acute kidney injury superimposed on CKD ([facility]) [N17.9, N18.9] Pulmonary vascular congestion [R09.89] SOB [...] hpi Review of External (Non- ED) Notes: [facility] ED notes from 08/22/24 reviewed [...] of DVT, CKD3, cirrhosis. Admitted 09/30/2024 to [facility] for aDHF 2/2 CAP. Pt completed [...] primary care provider. Luis Eduardo Bernal DO [id number] Emergency department Note* Luis Eduardo Bernal DO [...] heart failure (HCC) DVT (deep venous thrombosis) ([facility]) Hypercholesteremia Iron deficiency anemia Stage 2 chronic kidney disease Vitamin D deficiency Patient Active Problem List: CKD (chronic kidney disease) [N18.9] Essential hypertension [I10] Elevated liver enzymes [R74.8] Acute deep vein thrombosis (DVT) of lower extremity ([facility]) [I82.409] HFrEF (heart failure with reduced ejection fraction) ([facility]) [I50.20] History of left bundle branch block (LBBB) [Z86.79] Acute kidney injury superimposed on CKD ([facility]) [N17.9, N18.9] Pulmonary vascular congestion [R09.89] SOB [...] hpi Review of External (Non- ED) Notes: [facility] ED notes from 08/22/24 reviewed [...] of DVT, CKD3, cirrhosis. Admitted 09/30/2024 to [facility] for aDHF 2/2 CAP. Pt completed [...] Luis Eduardo Bernal DO documented in this [id number] Hospital Discharge instructions* Discharge Instructions* Luis Eduardo Bernal DO - 10/13/2024 3:51 PM EDT Respiratory instructions: Return to the ED if you have worsening shortness of breath, increased fever, coughing up blood, new or worsening chest pain or your symptoms don't improve in 2 days. documented in this [id number] Telephone encounter Note* Telephone Encounter - Louise Morales RN - 10/13/2024 1:01 PM EDT What is the need: Situation: call transferred from [facility] for cough. Patient calling with concern of [...] exposures) Denies Protocols used: Coughing Up Blood-A-AH [id number] Miscellaneous Notes* Telephone Encounter - Louise Morales RN - 10/13/2024 1:01 PM EDT What is the need: Situation: call transferred from [facility] for cough. Patient calling with concern of [...] concerned about lingering cough. documented in this [id number] Telephone encounter Note* Telephone Encounter - Luma Bowie - 10/13/2024 12:51 PM EDT Caller transferred to nurse for sx of(buzzword or buzzword situation)was hosptalized for pneumonia and concerned about lingering cough. KyffpOodpgz22-23-2267 NotePatient: CARLO MEDINA Age: 44 years Sex: [...] continue all the present care and therapy [facility]04-10-2025 Telephone encounter Note* Telephone Encounter - Radha Flores RN - 10/07/2024 1:44 PM EDT Transitional Care Management Contact Initial communication post-discharge: 1st attempt: 10/07/24, 1:44 PM -No answer 2nd attempt: 10/08/24, 9:47 AM -No answer 3rd attempt: 10/08/24, 2:53 PM -No answerLetter mailed: 10/08/24 Patient no longer meet Tools Developer Coordination services due to one or more of the following: [] Well connected to medical home and/or other services [] Identified Needs/Goals have been met [x] Unable to contact patient (at least 3 documented attempts) [] Is not adherent to Care Plan or Goals [] Declined Services [] Rolled off insurance plan or no longer patient [] Living situation changed; ie. SNF, Retirement, Hospice [] PCP recommends deferral [] Patient transferred to Test Evaluator or Ebd Teacher [] No readmissions 30 days post discharge. [] DESEAN Bee, trading analystInsurance Assistant [phone] [id number] Miscellaneous Notes* Telephone Encounter - Radha Flores RN - 10/07/2024 1:44 PM EDT Transitional Care Management Contact Initial communication post-discharge: 1st attempt: 10/07/24, 1:44 PM -No answer 2nd attempt: 10/08/24, 9:47 AM -No answer 3rd attempt: 10/08/24, 2:53 PM -No answerLetter mailed: 10/08/24 Patient no longer meet Tools Developer Coordination services due to one or more of the following: [] Well connected to medical home and/or other services [] Identified Needs/Goals have been met [x] Unable to contact patient (at least 3 documented attempts) [] Is not adherent to Care Plan or Goals [] Declined Services [] Rolled off insurance plan or no longer MH patient [] Living situation changed; ie. SNF, Retirement, Hospice [] PCP recommends deferral [] Patient transferred to Test Evaluator or Ebd Teacher [] No readmissions 30 days post discharge. [] DESEAN Bee, trading analystInsurance Assistant [phone] documented in this [id number] NoteThe [facility] History of Present illness Narrative* [...] ANTON, RN, CM Care Coordination department secure Fly Victor chat * Amanda Esposito RN - 10/05/2024 4:05 PM EDT Report received from amirah evans. Care assumed att * Dominic Chacko MD - 10/05/2024 12:37 PM EDT Images from the original note were not included. [facility] Internal Medicine: TEAM 2 - Daily Progress Note Patient: Carlo Medina : 1980 Sex: male Room: [place] [address] Admit Date: 09/30/2024 Today's Date: 10/05/2024 Length [...] ICU level care he was transferred to [facility]. SUBJECTIVE: EVENTS IN PAST 24H: Some chest [...] with capacity refusing ICU treatments/interventions, transferred to [facility]. He is vitally stable, and electrolytes are [...] Medicine Pediatrics PGY 1 Team 2 Med [id number] Cosigned by Julio Jauregui MD at 10/05/2024 9:44 PM EDT * Aryan Cervantes MD - 10/05/2024 9:35 AM EDT Images from the original note were not included. Consult Service Progress Note Heart Failure Service Date and Time of Visit: 10/05/2024 9:35 AM Room: [place] [address] PCP Contact: Yuval Gayle MD Consultation Requested [...] organism Acute kidney injury superimposed on CKD ([facility]) HFrEF (heart failure with reduced ejection fraction) ([facility]) Allergies Allergies Allergen Reactions Torsemide Vomiting Reports did not tolerate, refuses to take again Sacubitril-Valsartan Vomiting Medications Current Facility-Administered Medications Medication Dose Route Frequency Last Rate Last Admin doxycycline (VIBRA-TABS) 100 MG tablet 100 mg Oral 2x Daily amoxicillin-clavulanate (AUGMENTIN) 875-125 MG per tablet 1 Tablet Oral 2x Daily 1 Tablet at 10/04/241900 Apixaban (ELIQUIS) tablet 5 mg Oral 2x Daily 5 mg at 10/04/241900 bumetanide (BUMEX) tablet 2 mg Oral Once acetaminophen (TYLENOL) 650 MG/20.3ML oral solution 1,000 mg Oral Q8H PRN 1,000 mg at 10/04/242253 oxyCODONE immediate release tablet 5 mg Oral [...] Department of Cardiovascular Diseases Heart and Vascular [facility] Teaching Physician Note: I saw and evaluated [...] from the original note were not included. [facility] Internal Medicine: TEAM 2 - Daily Progress Note Patient: Carlo Medina : 1980 Sex: male Room: [place] [address] Admit Date: 09/30/2024 Today's Date: 10/04/2024 Length [...] ICU level care he was transferred to [facility]. SUBJECTIVE: EVENTS IN PAST 24H: Transferred to [facility] SUBJECTIVE: Pt arrived a febrile, tachycardic at [...] Medicine Pediatrics PGY 1 Team 2 Med [id number] Cosigned by Julio Jauregui MD at 10/05/2024 [...] DVT, cirrhosis, and CKD stage [facility] [...] on restarting IV medications and central venous catheter/Savery Maria C catheter. He had unsuccessful attempt to place left internal jugular CVC 10/03/2024, he feels slightly better, off O2. Patient removed his IV and arterial line, refused Savery Maria C catheter, refused heparin and ceftriaxone. I re explained the gravity of his condition and offered CVC which he continued to refuse. 10/04/2024: Patient refused to continue dobutamine and asked the nurse to stop it and therefore his not being getting it. He continues to refuse central venous catheter/Savery-Maria C catheter. It was re-expand to him [...] care 30 minutes. Kathleen Burden MD MPH Optician Manager and Endovascular Specialist * Shane Omalley MD - 10/04/2024 7:53 AM EDT Images from the original note were not included. [facility] CICU - Progress Note Carlo Medina Age [age] year old male ROOM: [place] [address] Admitted 09/30/2024 4:07 PM Hospital Day: 5 [...] doxycycline with cocern for CAP. Admitted to [facility]. Echo done with EF 15%, severe MR, [...] central line (removed because catheter traveled from [facility]). All medications refused and patient requested [...] Phenyl Epi Sedation: Fent Prop Versed Ket Savery Numbers: PAP Mean PCWP Cardiac Index Labs: [...] care. This decision was discussed with Ethics account executive sales representative. Neurologic No active issues Cardiovascular [...] an attending physician. Shane Omalley MD (he/him) Home Service Demonstrator PGY-2 10/04/24 * Kathleen Burden MD, MPH - 10/03/2024 7:20 AM EDT Images from the original note were not included. [facility] CICU - Progress Note Carlo Medina Age [age] year old male ROOM: [place] [address] Admitted 09/30/2024 4:07 PM Hospital Day: 4 [...] doxycycline with cocern for CAP. Admitted to [facility]. Echo done with EF 15%, severe MR, [...] central line (removed because catheter traveled from [facility]). All medications refused and patient requested [...] Phenyl Epi Sedation: Fent Prop Versed Ket Savery Numbers: PAP Mean PCWP Cardiac Index Labs: [...] until finalized by an attending physician. Guadalupe Mccarthy DO Internal medicine/Pediatrics, PGY-2 Teaching physician note: [...] DVT, cirrhosis, and [facility] [...] on restarting IV medications and central venous catheter/Savery Maria C catheter. He had unsuccessful attempt to place left internal jugular CVC 10/03/2024, he feels slightly better, off O2. Patient removed his IV and arterial line, refused Savery Maria C catheter, refused heparin and ceftriaxone. [...] CICU floor as he does not want Savery Maria C catheter Code status: full EKG [...] care 30 minutes. Kathleen Burden MD MPH Optician Manager and Endovascular Specialist * Guadalupe Mccarthy DO [...] other, Kaitlin Hicks on the phone at [phone]. She stated that she understood the patient [...] Spoke to patient's relative Nanci Medina at [phone]. The same information as above was given. She states that the patient needs to decide what his goals are and make decisions like an adult. She will also come to the hospital. Brother Vance Medina called from [phone] inquiring updates and was given the same [...] from the original note were not included. [place] [address] FAMILY MEDICINE INPATIENT SERVICE PROGRESS NOTE Carlo Medina 44 year old 166.4 lbs MRN/Room: [id number]/[id number] : 1980 Admit Date: 09/30/2024 Chief Complaint Patient presents with Shortness of breath Pt c/o right sided rib pain, sob. Diarrhea x1 week, vomiting yesterday with cough and congestion. Hospital Course: Carlo Medina is a 44 year old male with PMHx of HFrEF (EF 18% 07/2024), LBBB, HTN, HLD, bilateral DVT (05/2024), and CKD 3 who presented to [place] ED on 09/30/2024 for SOB and R [...] PO. Pt was recommended for admission to [facility] forfurther management. Patients echo showed an EF [...] cirrhosis, and CKD 3 who presented to [place] ED on 09/30/2024 for SOB and R [...] MD Family Medicine, PGY-1 FM Team Pager: [phone] * Lesly Luna RN - 10/01/2024 12:20 [...] warranted. Lesly Luna RN, BSN Case Management [phone] M-F 7:30-4:00 * Ramin Lopez RN - 10/01/2024 4:[address] Hutchinson notified of critical Lactate value of 3.5. Dr. Hutchinson read back critical results. New orders not received. documented in this [id number] Progress note* Progress Notes - Willie - [...] were discontinued and he was transferred to [facility]. This am, he is in agreement with [...] to document discussion of and attempt to vocational guidance counselor pt and girlfriend on the severity of disease and to address code status again. On tele. Julio Jauregui MD In[employer] Work Phone: [phone]) 237-511504-08-2025 Miscellaneous Notes* Progress Notes - NoteWriter - [...] were discontinued and he was transferred to [facility]. This am, he is in agreement with [...] to document discussion of and attempt to vocational guidance counselor pt and girlfriend on the severity [...] Carlo Medina : 1980 Sex: male Room: [place] [address] Admit Date: 09/30/2024 Today's Date: 10/04/2024 Hospital [...] [] [] Signature Shane Omalley MD (he/him) Home Service Demonstrator PGY-2 10/04/24 * Discharge Planning Note - Michelle Umana RN - 10/04/2024 12:39 PM EDT CASE MANAGEMENT CM aware Ethics is following d/t patient declining recommended medical interventions. Per MD Mously, patient is competent to make his own [...] for further discharge needs as warranted. Michelle ANTON RN CMSRN PRN Predatory Game Hunter * Progress Notes - NoteWriter - Soraida Pedroza RN - 10/04/2024 12:30 [...] a 44 year old (Full Code) Room: [facility]2 1980 [facility] TO cardiac icu Admit Date: 09/30/2024 Today's Date: 10/01/2024 Length of stay: 1 day(s) HOSPITAL COURSE: Carlo Medina is a 44 year old male w/ PMH of HFrEF (18% by TTE 08/11/24), LBBB, HTN, HLD, bilateral DVT (05/2024), and CKD 3 who presented to [place] ED on 09/30/2024 for SOB and R rib pain, admitted for management of lower lobe pneumonia. Started on Doxycycline/Ceftriaxone (SD 09/30 - ) for management of CAP. Initial [...] Refer to progress notes Report called to financial accounting manager at 6:36 PM Carleen Weber MD Family Medicine PGY-2 documented in this [id number] Consult note* Deena Yan OT - 10/05/2024 [...] OTR/L (Message Via Secure Chat as Needed) [id number] Consult note* Deena Yan OT - 10/05/2024 [...] of any further assistance. Calin Hearn MD, [facility] Clinical Ethics Fellow, [facility] 20/01 Clinical Ethics Consult Pager: [phone] * Faith Gan PT - 10/03/2024 9:00 AM EDT PHYSICAL THERAPY-DISCHARGE Attempted to see patient for PT session, however pt currently declining any further therapy needs. Patient reporting independence with functional mobility and no concerns for a decline in his independence. Pt requesting DC from PT services Will respectfully DC PT Faith Gan, PT, DPT Secure chat with questions * [...] of Daily Living - girlfriend completes all cone sewer, driving and meals (-) works, in the process of applying for disability (-) falls Assistance Available at Home: Girlfriend 20/01 Patient lives in a [place] home 4 stairs to enter. Full Bathroom on residing level and Bedroom on residing level. Equipment available at home: no equipment OBJECTIVE: Patient Identification: patient verbalizing his/her name and date of . Risks and benefits of occupational therapy: Patient informed of risks and benefits of treatment Appearance: guest experience captain, Pulse Oximeter and BP cuff unhooked by [...] Dep Max Mod Min CG CS DS MT I Set-Up Comment Feeding X Per pt [...] Dep Max Mod Min CG CS DS MT I Set-Up Comment Toilet Transfers X Anticipate [...] With Patients permission ordered no equipment via Cloud[employer] Order. If any questions contact [facility] DME Provider at [phone]. 10/02/2024 6 Clicks Daily Activity OT Help [...] Guard Assist/Supervision 4 - Non = Modified [place]/Independent ASSESSMENT: Will continue to follow patient while [...] allow for participation in ADL/IADL PLAN: Carlo Shookley will be seen x1-3 times a week. [...] NA = Not Assessed, I = Independent, MT = Modified Independent, Sup = Supervised, Set [...] HFrEF (heart failure with reduced ejection fraction) ([facility]) [I50.20] Acute kidney injury superimposed on CKD (HCC) [N17.9, N18.9] Precautions: Falls Risk: Moderate Code Status: Full Diet: 2 GM sodium, 2000 cc fluid Activity Orders: Progressive mobility Past Medical and Surgical History: PMH: Past Medical History: Diagnosis Date Chronic systolic heart failure (HCC) DVT (deep venous thrombosis) ([facility]) Hypercholesteremia Iron deficiency anemia Stage 2 [...] Patient Identified Goal(s): to return to [employer] Status: Mobility Status: Independent ADL/IADL Independent Falls: [...] Dep Max Mod Min CG CS DS MT I Set-Up Comment Supine to Sit X [...] NA = Not Assessed, I = Independent, MT = Modified Independent, Sup = Supervised, Set [...] 10/01/2024 10:00 AM Name: Carlo Medina Room: [place] [address] : 1980 male 44 year old Admit [...] fluids, continues to trend down. Follows at [facility]. Last seen recently in Jul, with some [...] PRN: metoclopramide 10 mg Q6H PRN MEDICATIONS CORN SHELLER: Prior to Admission medications Medication Sig Start Date End Date Taking? Authorizing Provider Apixaban (ELIQUIS) 5 MG tablet Take 5 mg by mouth 2 times daily. [facility], PROVIDER Cholecalciferol 50 MCG (2000 UT) CAPS Take 1 Capsule by mouth daily. NON- [facility], PROVIDER losartan (COZAAR) 50 MG tablet Take 50 mg by mouth daily. 08/04/24 08/04/25 NON- [facility], PROVIDER losartan (COZAAR) 25 MG tablet 07/30/24 [facility], PROVIDER magnesium oxide (MAG-OX) 400 (240 Mg) MG TABS tablet Take 400 mg by mouth daily. 07/31/24 [facility], PROVIDER metoprolol (TOPROL-XL) 25 mg XL tablet Take 25 mg by mouth daily. 08/21/24 08/21/25 [facility], PROVIDER pantoprazole (PROTONIX) 40 MG tablet Take 40 mg by mouth daily. [facility], PROVIDER potassium chloride SA (K-DUR) 20 MEQ controlled release tablet 07/30/24 NON- [facility], PROVIDER sodium bicarbonate 650 MG tablet Take 2 Tablets by mouth 2 times daily. NON- [facility], PROVIDER spironolactone (ALDACTONE) 25 MG tablet Take 25 mg by mouth daily. 08/04/24 08/04/25 [facility], PROVIDER hydrALAZINE (APRESOLINE) 25 MG tablet 1 tablet with food Orally three times a day [facility]ER isosorbide dinitrate (ISORDIL) 20 MG tablet Take 3 Tablets by mouth 3 times daily. [facility], PROVIDER metoclopramide (REGLAN) 5 MG tablet Take [...] results found for: LVEF EF 18% at [facility] LHC/ RHC: Non-obstructive CAD IMPRESSION Acute on chronic HFrEF with low cardiac output state Severe MR Severe TR Type 2 MT 2/2 supply demand mismatch RECOMMENDATIONS - Recommend [...] Department of Cardiovascular Diseases Heart and Vascular [facility] Teaching Physician Note: I saw and evaluated [...] note were not included. Dietitian vs DietaryTech: [employer] Diet Flight Purser Nutrition Screening Reason for visit: Positive nutrition [...] Will continue to follow, Janay Melo, Diet Flight Purser Pager [phone] Time spent on patient care: 30 minutes documented in this [id number] Progress note* Transfer Note - Shane Omalley MD - 10/04/2024 4:08 PM EDT Images from the original note were not included. . Provider Called Report To (Enter Provider Name, Service, and Time): Eugene Nova MD, Med Resident Teams 16:30 CICU Transfer Note Patient: Carlo Medina : 1980 Sex: male Room: [place] [address] Admit Date: 09/30/2024 Today's Date: 10/04/2024 Hospital [...] [] [] Signature Shane Omalley MD (he/him) Home Service Demonstrator PGY-2 10/04/24 [id number] Progress note* Discharge Planning Note - Michelle Umana RN - 10/04/2024 12:39 PM EDT CASE MANAGEMENT CM aware Ethics is following d/t patient declining recommended medical interventions. Per MD Mously, patient is competent to make his own [...] warranted. Michelle Umana BSN RN CMSRN PRN Predatory Game Hunter [id number] Progress note* Progress Notes - NoteWriter - Soraida Pedroza RN - 10/04/2024 12:30 AM EDT 12:30 AM Patient refusing labs at this time [id number] Consult note* Calin Hearn - 10/03/2024 6:37 [...] of any further assistance. Calin Hearn MD, [facility] Clinical Ethics Fellow, [facility] 20/01 Clinical Ethics Consult Pager: [phone] [id number] Hospital Note* Hospital Course - Guadalupe Mccarthy [...] doxycycline with cocern for CAP. Admitted to [facility] medicine. Echo done with EF 15%, severe [...] want to be hooked up to lines. [id number] Consult note* Faith Gan PT - 10/03/2024 9:00 AM EDT PHYSICAL THERAPY-DISCHARGE Attempted to see patient for PT session, however pt currently declining any further therapy needs. Patient reporting independence with functional mobility and no concerns for a decline in his independence. Pt requesting DC from PT services Will respectfully DC PT Faith Gan PT, DPT Secure chat with questions T [id number] Progress note* Progress Notes - Willie - Soraida Pedroza RN - 10/03/2024 12:58 AM EDT 12:58 AM Unable to obtain lab work due to lack of access, patient is difficult stick and refusing peripheralsticks. [id number] NoteEXAMINATION: XR CHEST AP OR PA 1 [...] Continued follow-up exam is recommended. MACRO: None [id number] Procedure note* Guadalupe Mccarthy DO - 10/02/2024 [...] ultrasound image is not saved to the [employer]) system with patient information. Guadalupe Mccarthy DO Internal Medicine/Pediatrics PGY-2 Cosigned by Steven Laguna MD at 10/03/2024 6:38 AM EDT [id number] Procedure note* Guadalupe Mccarthy DO - 10/02/2024 [...] ultrasound image is not saved to the [employer] system with patient information. Guadalupe Mccarthy DO Internal Medicine/Pediatrics PGY-2 Cosigned by Steven Laguna MD at 10/03/2024 6:38 AM EDT documented in this [id number] Consult note* RonnieMarya - 10/02/2024 5:07 PM EDTAssociated Order(s): IP [...] of Daily Living - girlfriend completes all cone sewer, driving and meals (-) works, in the process of applying for disability (-) falls Assistance Available at Home: Girlfriend 20/01 Patient lives in a [place] home 4 stairs to enter. Full Bathroom on residing level and Bedroom on residing level. Equipment available at home: no equipment OBJECTIVE: Patient Identification: patient verbalizing his/her name and date of . Risks and benefits of occupational therapy: Patient informed of risks and benefits of treatment Appearance: guest experience captain, Pulse Oximeter and BP cuff unhooked by [...] Dep Max Mod Min CG CS DS MT I Set-Up Comment Feeding X Per pt [...] Dep Max Mod Min CG CS DS MT I Set-Up Comment Toilet Transfers X Anticipate [...] With Patients permission ordered no equipment via [employer] Order. If any questions contact [facility] DME Provider at [phone]. 10/02/2024 6 Clicks Daily Activity OT Help [...] Guard Assist/Supervision 4 - Non = Modified [place]/Independent ASSESSMENT: Will continue to follow patient while [...] NA = Not Assessed, I = Independent, MT = Modified Independent, Sup = Supervised, Set up = Physical Assistance for Set-up Only, Min = Minimal Assistance, Mod = Moderate Assistance, Max = Max assistance; Dep = Dependent; AROM = Active Range of Motion;PROM=Passive Rangeof Motion; MMT = Manual Muscle Test; UB = Upper Body; LB = Lower Body [id number] Consult note* Rosaline Rivero, PT - 10/02/2024 12:46 PM EDTAssociated Order(s): IP PHYSICAL THERAPY SERVICE REQUEST PHYSICAL THERAPY ACUTE EVALUATION Referral received, chart reviewed. Patient seen from 09 to 09 on CICU unit for 32 minutes. Eval + Tx Admit date: 09/30/2024 4:07 PM Reason for Admit: 44 year old male presenting with PNA, ADHF, concern for cardiogenic shock Diagnosis: Pneumonia of right lower lobe due to infectious organism [J18.9] Hypervolemia, unspecified hypervolemia type [E87.70] HFrEF (heart failure with reduced ejection fraction) ([facility]) [I50.20] Acute kidney injury superimposed on CKD ([facility]) [N17.9, N18.9] Precautions: Falls Risk: Moderate Code Status: Full Diet: 2 GM sodium, 2000 cc fluid Activity Orders: Progressive mobility Past Medical and Surgical History: PMH: Past Medical History: Diagnosis Date Chronic systolic heart failure (HCC) DVT (deep venous thrombosis) ([facility]) Hypercholesteremia Iron deficiency anemia Stage 2 [...] Patient Identified Goal(s): to return to [employer] Status: Mobility Status: Independent ADL/IADL Independent Falls: [...] Dep Max Mod Min CG CS DS MT I Set-Up Comment Supine to Sit X [...] NA = Not Assessed, I = Independent, MT = Modified Independent, Sup = Supervised, Set up = Physical Assistance for Set-up Only, Min = Minimal Assistance, Mod = Moderate Assistance, Max = Max assistance; Dep = Dependent; AROM = Active Range of Motion; PROM = Passive Range of Motion; MMT = Manual Muscle Test; LE = Lower Extremity; VC = verbal cues; TC = tactile cues; PLB = pursed lip breathing [id number] History and physical note* Kathleen Burden MD, MPH - 10/02/2024 12:00 AM EDT Images from the original note were not included. [facility] Cardiac Intensive Care Unit - H&P Note Carlo Medina Age [age] year old male ROOM: [place] [address] Admitted: 09/30/2024 4:07 PM Hospital Day: 2 [...] cirrhosis, and CKD 3 who presented to [place] ED on 09/30/2024 for SOB and R [...] until finalized by an attending physician. Kalyn Green, Internal Medicine, PGY-3 Teaching physician note: History [...] on restarting IV medications and central venous catheter/Savery Maria C catheter Active Medical Problems: - [...] care 30 minutes. Kathleen Burden MD MPH Optician Manager and Endovascular Specialist [id number] History and physical note* Kathleen Burden MD, MPH - 10/02/2024 12:00 AM EDT Images from the original note were not included. [facility] Cardiac Intensive Care Unit - H&P Note Carlo Medina Age [age] year old male ROOM: [place] [address] Admitted: 09/30/2024 4:07 PM Hospital Day: 2 [...] DVT, cirrhosis, CKD3 who was admitted to [facility] service for acute decompensated heart failure and [...] doxycycline with cocern for CAP. Admitted to [facility]. Echo done with EF 15%, severe MR, [...] cirrhosis, and CKD 3 who presented to [place] ED on 09/30/2024 for SOB and R [...] Code Emergency Contact: PATIENT: EMERGENCY CONTACT #1: Liliana Hicksnifer (Significant other) home: , work: EMERGENCY CONTACT #2: Nanci Medina (Relative) home: , work: This plan is preliminary until finalized by an attending physician. Kalyn Norma, DO Internal Medicine, PGY-3 Teaching physician note: [...] CKD stage 3, admitted onApr2024, to the family medicine service for acute [...] on restarting IV medications and central venous catheter/Savery Maria C catheter Active Medical Problems: - [...] care 30 minutes. Kathleen Burden MD MPH Optician Manager and Endovascular Specialist * Lance Ennis MD - 10/01/2024 8:56 AM EDT Images from the original note were not included. Family Medicine Attending H&P Carlo Medina [id number] Inpatient Attending/Teaching Physician Note: I saw and [...] DVT and CKD stage 3presented to the [place] emergency department yesterday with shortness of breath [...] Home when clinically stable Lance Ennis MD [id number] * Harris Hutchinson MD - 09/30/2024 11:12 PM EDT Images from the original note were not included. SENIOR NOTE I saw and evaluated the patient. I personally obtained the reardon and critical portions of the historyand physical exam. I reviewed the senior internet sales consultant's documentation and discussed the patient with the senior internet sales consultant.I agree with the senior internet sales consultant's medical decision making as documented in the senior internet sales consultant's note. Further details provided in the senior internet sales consultant's note. Briefly: GEMINI Medina is a 44 year old male w/ PMH of HFrEF (18% by TTE 08/11/24), LBBB, HTN, HLD, bilateral DVT (05/2024), and CKD 3 who presented to [place] ED on 09/30/2024 for SOB and R [...] normal. Rest of labs and imaging per senior internet sales consultant note ASSESSMENT/PLAN Carlo Medina is a 44 year old male w/ PMH of HFrEF (18% by TTE 08/11/24), LBBB, HTN, HLD, bilateral DVT (05/2024), and CKD 3 who presented to [place] ED on 09/30/2024 for SOB and R [...] Daily weights and Accurate I/O's Rest per senior internet sales consultant note. Harris Hutchinson MD Family Medicine PGY2 * Pauline Denny MD - 09/30/2024 10:43 PM EDT Images from the original note were not included. [place] [address] FAMILY MEDICINE INPATIENT SERVICE H&P Carlo Medina [...] (05/2024), and CKD 3 who presented to [place] ED on 09/30/2024 for SOB and R [...] was this morning prior to going to [place]. He denies any hematochezia, melena, or hematemesis. Pt also endorses mild chills and cold hands. He denies any headache, dizziness, chest pain, palpitations, or sick contacts. He states he is compliant with medications. Chart Review: Admission 08/31-09/11/24- Presented to [place] ED for evaluation of intermittent abd pain, N/V, and SOB of 1 wk duration. In the ED, pt presented afebrile, HDS, in no acute distress on RA. Initial workup including BNP 3900, CXR w/ pulmonary vascular congestion, concerning for ADHF. Treated with IVF and Zofran, transferred to [facility] and initially admitted to [facility] on 09/01. HF team consulted 09/02, initiated [...] 2mg was continued. Admission 08/09-08/20/24- Presented to [facility] ED on 08/09/24 for chest pain, [...] accept IV electrolytes. Nephrology consulted. Notified by [facility] that patient's insurance is out of network, pt accepted for transfer to [facility] but refused bed when it was [...] PO. Pt was recommended for admission to [facility] forfurther management. Vitals: 09/30/242122 BP: Pulse: (!) [...] IV push (0 mg Intravenous IV Stop09/30/24 1909) doxycycline (VIBRA-TABS) 100 MG tablet (100 mg Oral Given 09/30/24 183) sodium chloride 0.9 % iv bolus (0 mL Intravenous IV Stop 09/30/242122) HISTORY: PMH: has a past medical history of Chronic systolic heart failure (HCC), DVT (deep venous thrombosis) ([facility]), Hypercholesteremia, Iron deficiency anemia, Stage 2 [...] (05/2024), and CKD 3 who presented to [place] ED on 09/30/2024 for SOB and R rib pain. ACUTE PROBLEMS: # Community Acquired Pneumonia -Pt w/ cough, dyspnea, and CXR demonstrates RLL consolidation -Admission WBC= 7.7 -PSI score= 86 points, risk class III -COVID/Influenza panel negative -Wide DDx: Bacterial PNA vs. Viral PNA vs. Aspiration PNA vs. Bronchitis vs. Lung Abscess vs. Lung Neoplasm vs. Hypersensitivity Pneumonitis -S/p cefepime 4/ Plan: -Empiric IV CTX 1g q24hr and [...] Family Medicine- PGY 1 FM Team Pager: [phone] documented in this [id number] Progress note* Transfer Note - Carleen Weber MD - 10/01/2024 4:00 PM EDT TRANSFER NOTE Patient: Mr. Carlo Medina, a 44 year old (Full Code) [address] [id number] 1980 [facility] TO cardiac icu Admit Date: 09/30/2024 Today's Date: 10/01/2024 Length of stay: 1 day(s) HOSPITAL COURSE: Carlo Medina is a 44 year old male w/ PMH of HFrEF (18% by TTE 08/11/24), LBBB, HTN, HLD, bilateral DVT (05/2024), and CKD 3 who presented to [place] ED on 09/30/2024 for SOB and R rib pain, admitted for management of lower lobe pneumonia. Started on Doxycycline/Ceftriaxone (SD 09/30 - ) for management of CAP. Initial [...] Refer to progress notes Report called to financial accounting manager at 6:36 PM Carleen Weber MD Family Medicine PGY-2 [employer] Work Phone: 1(311) 510-726204-04-2025 Consult note* Aryan Cervantes MD - 10/01/2024 10:00 AM EDTAssociated Order(s): IP CARDIOLOGY HEART FAILURE CONSULT Images from the original note were not included. New Patient Consult HF Consult Service 10/01/2024 10:00 AM Name: Carlo Medina Room: [facility]709/2 : 1980 male 44 [...] fluids, continues to trend down. Follows at [facility]. Last seen recently in Jul, with some [...] PRN: metoclopramide 10 mg Q6H PRN MEDICATIONS CORN SHELLER: Prior to Admission medications Medication Sig Start Date End Date Taking? Authorizing Provider Apixaban (ELIQUIS) 5 MG tablet Take 5 mg by mouth 2 times daily. NON-[facility], PROVIDER Cholecalciferol 50 MCG (1999 UT) CAPS Take 1 Capsule by mouth daily. NON- [facility], PROVIDER losartan (COZAAR) 50 MG tablet Take 50 mg by mouth daily. 08/04/24 08/04/25 NON- [facility], PROVIDER losartan (COZAAR) 25 MG tablet 07/30/24 [facility], PROVIDER magnesium oxide (MAG-OX) 400 (240 Mg) MG TABS tablet Take 400 mg by mouth daily. 07/31/24 [facility], PROVIDER metoprolol (TOPROL-XL) 25 mg XL tablet Take 25 mg by mouth daily. 08/21/24 08/21/25 [facility], PROVIDER pantoprazole (PROTONIX) 40 MG tablet Take 40 mg by mouth daily. [facility], PROVIDER potassium chloride SA (K-DUR) 20 MEQ controlled release tablet 07/30/24 NON- [facility], PROVIDER sodium bicarbonate 650 MG tablet Take 2 Tablets by mouth 2 times daily. NON- [facility] PROVIDER spironolactone (ALDACTONE) 25 MG tablet Take [...] 10/01/24 166 lb 6.4 oz (75.5 kg) 03/21/25 161 lb (73 kg) 09/11/24 160 lb [...] results found for: LVEF EF 18% at [facility]/ [facility]: Non-obstructive CAD IMPRESSION Acute on chronic HFrEF with low cardiac output state Severe MR Severe TR Type 2 MT 2/2 supply demand mismatch RECOMMENDATIONS - Recommend [...] Department of Cardiovascular Diseases Heart and Vascular [facility] Teaching Physician Note: I saw and evaluated the patient. I personally obtained the reardon and critical portions of the historyand physical exam. I reviewed the resident's documentation and discussed the patient with the resident. I agree with the resident's medical decision making as documented in the resident's note. Aryan Cervantes MD [id number] Consult note* Janay Melo - 10/01/2024 9:04 AM EDT Images from the original note were not included. Dietitian vs DietaryTech: [employer] Diet Flight Purser Nutrition Screening Reason for visit: Positive nutrition [...] Will continue to follow, Janay Melo, Diet Flight Purser Pager [phone] Time spent on patient care: 30 minutes [id number] History and physical note* Lance Ennis MD - 10/01/2024 8:56 AM EDT Images from the original note were not included. Family Medicine Attending H&P Carlo Medina [id number] Inpatient Attending/Teaching Physician Note: I saw and [...] DVT and CKD stage 3presented to the [place] emergency department yesterday with shortness of breath [...] Home when clinically stable Lance Ennis MD [id number] [employer] Work Phone: 1(967) 723-637004-03-2025 History and physical note* Harris Hutchinson MD - 09/30/2024 11:12 PM EDT Images from the original note were not included. SENIOR NOTE I saw and evaluated the patient. I personally obtained the reardon and critical portions of the historyand physical exam. I reviewed the senior internet sales consultant's documentation and discussed the patient with the senior internet sales consultant.I agree with the senior internet sales consultant's medical decision making as documented in the senior internet sales consultant's note. Further details provided in the senior internet sales consultant's note. Briefly: GEMINI Medina is a 44 year old male w/ PMH of HFrEF (18% by TTE 08/11/24), LBBB, HTN, HLD, bilateral DVT (05/2024), and CKD 3 who presented to [place] ED on 09/30/2024 for SOB and R [...] normal. Rest of labs and imaging per senior internet sales consultant note ASSESSMENT/PLAN Carlo Medina is a 44 year old male w/ PMH of HFrEF (18% by TTE 08/11/24), LBBB, HTN, HLD, bilateral DVT (05/2024), and CKD 3 who presented to [place] ED on 09/30/2024 for SOB and R [...] Daily weights and Accurate I/O's Rest per senior internet sales consultant note. Harris Hutchinson MD Family Medicine PGY2 [id number] History and physical note* Pauline Denny MD - 09/30/2024 10:43 PM EDT Images from the [place] [address] FAMILY MEDICINE INPATIENT SERVICE H&P Carlo Medina [...] (05/2024), and CKD 3 who presented to [place] ED on 09/30/2024 for SOB and R [...] was this morning prior to going to [place]. He denies any hematochezia, melena, or hematemesis. Pt also endorses mild chills and cold hands. He denies any headache, dizziness, chest pain, palpitations, or sick contacts. He states he is compliant with medications. Chart Review: Admission 08/31-09/11/24- Presented to [place] ED for evaluation of intermittent abd pain, N/V, and SOB of 1 wk duration. In the ED, pt presented afebrile, HDS, in no acute distress on RA. Initial workup including BNP 3900, CXR w/ pulmonary vascular congestion, concerning for ADHF. Treated with IVF and Zofran, transferred to [facility] and initially admitted to [facility] on 09/01. HF team consulted 09/02, initiated [...] 2mg was continued. Admission 08/09-08/20/24- Presented to [facility] ED on 08/09/24 for chest pain, [...] accept IV electrolytes. Nephrology consulted. Notified by [facility] that patient's insurance is out of network, pt accepted for transfer to [facility] but refused bed when it was [...] PO. Pt was recommended for admission to [facility] forfurther management. Vitals: 09/30/242122 BP: Pulse: (!) [...] IV push (0 mg Intravenous IV Stop09/30/24 1909) doxycycline (VIBRA-TABS) 100 MG tablet (100 mg Oral Given 09/30/24 1837) sodium chloride 0.9 % iv bolus (0 [...] 104/90 -- (!) 109 (!) 27 -- 09/30/24 2040 105/88 -- (!) 108 19 98 % [...] (05/2024), and CKD 3 who presented to [place] ED on 09/30/2024 for SOB and R [...] Family Medicine- PGY 1 FM Team Pager: [phone] [id number] Emergency department Note* Homar Carey RN - 09/30/2024 7:01 PM EDT Pt refuses to swallow whole pills. Attempted with pudding and water. Pill then crushed and pt refused to take more than half [id number] Emergency department Note* Homar Carey RN - [...] room at the time of the evaluation. Hr Generalist: not needed - patient preferred language is Mozambican. Carlo Medina is a 44 year old [...] heart failure (HCC) DVT (deep venous thrombosis) ([facility]) Hypercholesteremia Iron deficiency anemia Stage 2 chronic kidney disease Vitamin D deficiency Patient Active Problem List: CKD (chronic kidney disease) [N18.9] Essential hypertension [I10] Elevated liver enzymes [R74.8] Acute deep vein thrombosis (DVT) of lower extremity ([facility]) [I82.409] HFrEF (heart failure with reduced ejection fraction) ([facility]) [I50.20] History of left bundle branch block (LBBB) [Z86.79] Acute kidney injury superimposed on CKD ([facility]) [N17.9, N18.9] Pulmonary vascular congestion [R09.89] SOB (shortness of breath) [R06.02] Cardiogenic shock ([facility]) [R57.0] Pneumonia of right lower lobe [...] HFrEF (heart failure with reduced ejection fraction) ([facility]) [I50.20] Acute kidney injury superimposed on CKD ([facility]) [N17.9, N18.9] Disposition: Admitted to Floor: Family Medicine Service. Report called to Dr. Hutchinson, [facility], 822pm(09/30/242022) The patient has received a [...] my direction and personally dictated by me. Ihave reviewed the record and confirm that the note above accurately reflects all work, treatment, procedures, and medical decision making performed by me. Vargas Fisher Note has been documented by Anshu Dominguez on 09/30/2024 documented in this [id number] Emergency department Note* Cipriano Sun RN - 09/30/2024 6:27 PM EDT notified of critical lactate value of 4.3 read back critical results. No New orders [id number] Emergency department Note* Soraida Nixon RN - 09/30/2024 5:[address] BERG NOTIFIED OF CRITICAL LACTATE LEVEL OF 5.0. ORDERS FOLLOWED. [facility] Work Phone: [phone]) 245-391204-03-2025 Physician Emergency department Note* Vargas Berg MD [...] room at the time of the evaluation. Hr Generalist: not needed - patient preferred language is Mozambican. Carlo Medina is a 44 year old [...] HFrEF (heart failure with reduced ejection fraction) ([facility]) [I50.20] History of left bundle branch [...] and diarrhea I have concern that his SCHUYLRE maybe prerenal from mild volume depletion however [...] BNP. Given this patient was admitted to [facility] for further management. IMPRESSION AND DISPOSITION Clinical Impression Diagnosis Comment Pneumonia of right lower lobe due to infectious organism [J18.9] Hypervolemia, unspecified hypervolemia type [E87.70] HFrEF (heart failure with reduced ejection fraction) ([facility]) [I50.20] Acute kidney injury superimposed on CKD (HCC) [N17.9, N18.9] Disposition: Admitted to Floor: Family Medicine Service. Report called to Dr. Hutchinson, [facility], 822pm(09/30/242022) The patient has received a [...] my direction and personally dictated by me. Ihave reviewed the record and confirm that the note above accurately reflects all work, treatment, procedures, and medical decision making performed by me. Vargas Fisher Note has been documented by Anshu Dominguez on 09/30/2024 [facility] [id number] NotePatient Education Material Cardiovascular Chest Pain: Care [...] irregular heartbeat. After you call 911, the splicer operator may tell you to chew 1 [...] Where can you learn more? Go to [email or web address].net/patientEd Enter A120 in the search box to learn more about Chest Pain: Care Instructions. Current as of: September 05, 2021 Content Version: 13.3 ? [employer]. Care instructions adapted under license by your healthcare professional. If you have questions about a medical condition or this instruction, always ask your healthcare professional. [employer] disclaims any warranty or liability for your [...] ? Your vomiting is (more content not included)...[facility] 09-19-2024 NoteEducation Pharmacy - Anticoagulation Entered On: 09/19/2024 10:13 EDT Performed On: 09/19/2024 10:13 EDT by Shabana Fleming RPh Education Pharmacy Anticoagulation Barriers to Learning : None evident TeachBack Methodology : Printed Material Anticoagulant on Discharge : Apixaban Teach Back Notes : Home Eliquis continued on admission Shabana Fleming RPh - 09/19/2024 10:13 EDTSHolmes County Joel [facility] HospitalComment on above:Order Comment: Request for pharmacy education by discern rule for patient ordered [id number] NoteImmunization Screening Entered On: 09/18/2024 11:33 EDT Performed On: 09/18/2024 11:33 EDT by Nicole Manning RN Immunization Screening Immunizations Current : Unknown Last Tetanus : Unknown Influenza Vaccine : Yes [place] COVID-19 Vaccine : No Nicole Manning RN - 09/18/2024 11:33 [facility]:Order Comment: Order entered secondary to inpatient admission.Result Comment: [id number] NoteHNO ID: [id number] Author: PAMELA CUETO LPN Service: ? Author Type: LICENSED NURSE Type: Progress Notes Filed: 09/17/2024 18:40 Note Text: [facility], [facility] and Remote [facility] Emergency Response Form. NOT TO BE USED AT MAIN [place] Complete this report when the Emergency Medical Response is activated (911 calls/EmergencyTransport to the ED) or when a Code Sheet is utilized in the care of a patient (i.e., ASC) Date of the Event: [id number] (Must provide Value) Time of the Event:5:43pm (Must provide Value) Was emergency response activated? (Local EMS/Emergency Department) YES (Must provide Value) Location of the Incident:[facility] ([facility]) (Must provide Value) Reason/Chief Complaint for Emergency [...] Alert and orientated Transferred to Hospital ED Environmental Services Technician information: Name of Provider- Pamela Cueto (Must provide value) 0[facility]03-21-2025 History of Present illness Narrative* Pamela Cueto LPN - 09/17/2024 6:17 PM EDT [facility], [facility] and Remote Sites Emergency Response Form. NOT TO BE USED AT MAIN CAMPUS Complete this report when the Emergency Medical Response is activated (911 calls/EmergencyTransportto the ED) or when a Code Sheet is utilized in the care of a patient (i.e., ASC) Date of the Event: [id number] (Must provide Value) Time of the Event:5:43pm (Must provide Value) Was emergency response activated? (Local EMS/Emergency Department) YES (Must provide Value) Location of the Incident:[facility] ([facility]) (Must provide Value) Reason/Chief Complaint for Emergency [...] Alert and orientated Transferred to Hospital ED Environmental Services Technician information: Name of Provider- Pamela Cueto (Must provide value) 0 * King Medina, - 09/17/2024 5:50 PM EDT [facility] Gemini Medina is a 44 year old male. Patient presents with: Shortness of Breath: Heart burn, nausea, vomiting, diarrhea, coughing Chest Pain Patient presents with chest pain, shortness of breath, nausea/vomiting, diarrhea, cough. Cough, chest pain, shortness of breath times ~4-5 days. N/v/d started ~1 day ago. He cannot keep anything downtoday. No fevers/chills. Hx of CHF, cardiac event that appears to be MT, though Patient denies MT. Recently was hospitalized with kidney failure at [facility] and discharged ~5 days ago. Has had [...] (primary diagnosis) Given hx, symptoms, EMS called. [facility] arrived within minutes to take Patient to ED. Patient appears stable upon leaving [facility] for ED via EMS. - [...] records: Multiple admissions for CHF, Kidney failure, MT recently Differential Diagnoses - Concern for cardiac, dehydration, kidney issues is more likely for the following reason(s): suggested by H&P Contributing Factors Chronic conditions affecting care: CHF, MT, Kidney Disease Chronic conditions addressed by: CHF, MT, Kidney disease - co-morbidities/risk factors. Disposition The patient was other (comment) (ED via EMS). documented in this encounterPro[facility] NoteHNO ID: [id number] Author: KING MEDINA DO Service: ? Author Type: Physician Type: Progress Notes Filed: 09/17/2024 18:40 Note Text: [facility] Subjective Carlo Medina is a 44 [...] CHF, cardiac event that appears to be MT, though Patient denies MT. Recently was hospitalized with kidney failure at [facility] and discharged ~5 days ago. Has had [...] (primary diagnosis) Given hx, symptoms, EMS called. [facility] arrived within minutes to take Patient to ED. Patient appears stable upon leaving [facility] for ED via EMS. - [...] records: Multiple admissions for CHF, Kidney failure, MT recently Differential Diagnoses - Concern for cardiac, dehydration, kidney issues is more likely for the following reason(s): suggested by HANDP Contributing Factors Chronic conditions affecting care: CHF, MT, Kidney Disease Chronic conditions addressed by: CHF, MT, Kidney disease - co-morbidities/risk factors. Disposition The patient was other (comment) (ED via EMS).[facility] 09-11-2024 NoteThe [facility]03-11-2025 NoteConsults Pt was scheduled for diagnostic paracentesis this afternoon. I was notified by staff that patient refused to have procedure done. Christopher Barakat DO CT/US Procedure ServiceThe Pomerene Hospital03-05-2025 NotePT A AND OX4. TRANSPORTED TO [facility]. PT AWARE OF ADMIT AND PLAN OF CARE.[facility]02-26-2025 NoteSee heart failure outreach telephone encounter.[facility]02-26-20[facility] Telephone encounter Note* Telephone Encounter - Manuela White RPh - 08/25/2024 10:27 AM EST See heart failure outreach telephone encounter. [facility] [employer] Phone: 1(675) 525-666002-26-2025 Miscellaneous Notes* Telephone Encounter - Manuela White RPh - 08/25/2024 10:27 AM EST See heart failure outreach telephone encounter. * Telephone Encounter - Ally Machado RN - 08/23/2024 8:41 AM EST 08/09/24-08/20/24 [facility] Admission, Dr Villalobos consult Complicated by refusal to accept IV electrolyte infusions He also refused metro transfer then a bed was avail Again declined life vest 08/22/24 (9:14pm)- [facility] ER- left AMA 08/23/24 (5:25am)- [facility] ER- left AMA [facility]. Left a brief VM. * Telephone Encounter - Manuela White RPh - 08/23/2024 8:11 AM EST Discharged with heart failure. Needs 72 hour post discharge phone call. 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 [facility] believed pt to be in low output HF during most recent hospitalization, but pt was refusing any invasive testing as well as intermittently refusing labs and medications. Noted pt in the emergency dept for the third time since hospital discharge on 08/20 (left AMA from [facility] and [facility]). This AM, presented to [facility] ED with N/V/abd pain- renal function and liver enzymes elevated. Per ED note, pt refused assessment from provider required for transfer to [facility] and insisted on leaving. Discussed case with Rayna Townsend [facility] 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. Call to pt. Pt answered and hung up right away twice, did answer on the third attempt. Asked pt about current symptoms, he stated you know, the same old thing- my heart and kidneys are bad. Discussed that current symptoms and lab work (n/v/abd pain, SCHUYLER, hepatic congestion, etc) could be related to low output HF/failure of oral therapy. Pt expressed frustration that [facility] will not admit him anymore (insurance is [...] Pt then hung up the phone. Next [facility] follow up scheduled with Dr. Astudillo on 09/02 at 11:30AM. 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 [facility] believed pt to be in low output HF during most recent hospitalization, but pt was refusing any invasive testing as well as intermittently refusing labs and medications. Noted pt in the emergency dept for the third time since hospital discharge on 08/20 (left AMA from [facility] and [facility]). This AM, presented to [facility] ED with N/V/abd pain- renal function and liver enzymes elevated. Per ED note, pt refused assessment from provider required for transfer to [facility] and insisted on leaving. Discussed case with Rayna Townsend [facility] 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. Call to pt. Pt answered and hung [...] Pt then hung up the phone. Next [facility] follow up scheduled with Dr. Astudillo on 09/02 at 11:30AM. documented in this [facility]02-26-2025 Emergency department Note* Obdulia Sanchez RN - 08/25/2024 2:35 AM EST Patient refusing covid/flu swab stating I would know if I had that and I haven't gotten it since it came out. Dr. Schaffer notified and aware. [facility] [id number] Emergency department Note* Obdulia Sanchze RN - 08/25/2024 2:35 AM EST Patient refusing covid/flu swab stating I would know if I had that and I haven't gotten it since it came out. Dr. Schaffer notified and aware. * Vargas Beach DO - 08/25/2024 1:11 AM EST Emergency Department Encounter Location: [facility] ED Patient: Carlo Medina : 1980 Date of evaluation: 08/25/2024 ED Provider: Vargas Beach DO Time received sign-out: 700 Carlo eMdina was checked out to me by Dr. [...] 401 ms QTC Interval 565 ms P [place] 47 degrees QRS [place] -86 degrees T Wave [place] 69 degrees [place] Interval 127 ms CBC auto differential Collection [...] network, plan was to transfer him to [facility] during admissionhowever he refused transfer and signed out AMA. Cardiology recommended Savery guided therapy for his heart failure however [...] symptoms, plan was to transfer him to [facility] where his insurance is excepted. I introduced myself at 7 AM to evaluate the patient. Patient refused my evaluation, states I do not know why you are evaluating me if I cannot even be admitted here. I told him that I will be the one speaking with the transfer center with [facility] and that I needed to perform a physical examinationon him to discuss with the providers at [facility] about the transfer, patient refused my evaluation, [...] are mis-transcribed.) Vargas Beach DO Acute Care [facility] Vargas Beach DO 08/25/24 0758 documented in this [facility]02-26-2025 Physician Emergency department Note* Vargas Beach DO - 08/25/2024 1:11 AM EST Emergency Department Encounter Location: [facility] ED Patient: Carlo Medina : [...] 401 ms QTC Interval 565 ms P [place] 47 degrees QRS [place] -86 degrees T Wave [place] 69 degrees [place] Interval 127 ms CBC auto differential Collection [...] network, plan was to transfer him to [facility] during admissionhowever he refused transfer and signed out AMA. Cardiology recommended Savery guided therapy for his heart failure however [...] symptoms, plan was to transfer him to [facility] where his insurance is excepted. I introduced myself at 7 AM to evaluate the patient. Patient refused my evaluation, states I do not know why you are evaluating me if I cannot even be admitted here. I told him that I will be the one speaking with the transfer center with [facility] and that I needed to perform a physical examinationon him to discuss with the providers at [facility] about the transfer, patient refused my evaluation, [...] [employer] Vargas Beach DO 08/25/24 0758 [facility] [id number] Telephone encounter Note* Telephone Encounter - Ally Machado RN - 08/23/2024 8:41 AM EST 08/09/24-08/20/24 [facility] Admission, Dr Villalobos consult Complicated by refusal to accept IV electrolyte infusions He also refused health system transfer then a bed was avail Again declined life vest 08/22/24 (9:14pm)- [facility] ER- left AMA 08/23/24 (5:25am)- [facility] ER- left AMA Tried to call the patient for [facility] call, no answer. Left a brief VM. [facility] [id number] Miscellaneous Notes* Telephone Encounter - Ally Machado RN - 08/23/2024 8:41 AM EST 08/09/24-08/20/24 [facility] Admission, Dr Villalobos consult 08/22/24 (9:14pm)- [facility] ER- left AMA 08/22/24 (5:25am)- [facility] ER- left AMA * Telephone Encounter - Manuela White RPh - 08/23/2024 8:11 AM EST Discharged with heart failure. Needs 72 hour post discharge phone call. documented in this [facility]02-24-2025 Miscellaneous Notes* Telephone Encounter - Ally Machado RN - 08/23/2024 8:41 AM EST 08/09/24-08/20/24 [facility] Admission, Dr Villalobos consult Complicated by refusal to accept IV electrolyte infusions He also refused metro transfer then a bed was avail Again declined life vest 08/22/24 (9:14pm)- [facility] ER- left AMA 08/23/24 (5:25am)- [facility] ER- left AMA [facility], no [facility]. Left a brief VM. * Telephone Encounter - Manuela White RPh - 08/23/2024 8:11 AM EST Discharged with heart failure. Needs 72 hour post discharge phone call. documented in this [place] [address]-24-2025 Telephone encounter Note* Telephone Encounter - Manuela White RPh - 08/23/2024 8:11 AM EST Discharged with heart failure. Needs 72 hour post discharge phone call. [employer] Phone: 1(502) 520-575902-24-2025 Emergency department Note* Maritza Huff RN - 08/23/2024 7:27 AM EST Patient is refusing the IV and lab work. Patient also refusing the Lopressor. Patient reports that he can't swallow meds. This nurse offered to put it in pudding. Patient then reports he does not take medication this early in the morning. Patient given ice water. Dr. Loaiza aware. Technical [id number] Emergency department Note* Maritza Huff RN - [...] 5:25 AM EST Emergency Department Encounter Location: [facility] ED Patient: Carlo Medina : 1980 Date [...] 380 ms QTC Interval 535 ms P [place] 58 degrees QRS [place] -78 degrees T Wave [place] 76 degrees NM Interval [address] abdomen pelvis wo [...] said he wanted to be transferred to [facility] because he still has symptoms. The cxr [...] are mis-transcribed.) Vic Loaiza MD Acute Care [facility] Vic Loaiza MD 08/23/2425 * Ladarius Guevara RN - 08/23/2024 5:25 [...] notified of patient arrival. documented in this [facility]02-24-2025 Emergency department Note* Ladarius Guevara RN - 08/23/2024 6:57 AM EST Pt. Ambulated to bathroom. Will monitor for pt. Return to room. [id number] Discharge instructions* Discharge Instructions* Joel Roa MD - 08/23/2024 6:47 AM EST Continue your current medications. Keep your appointment with your bottom precipitator operator next week. * Attachments The following attachments cannot be sent through Care Everywhere. * Heart Failure Discharge Instructions, Adult ([place]oz[place]) documented in this [facility]02-24-2025 Emergency department Triage note* Ladarius Guevara [...] per protocol. Provider notified of patient arrival. [id number] Physician Emergency department Note* Vic Loaiza MD - 08/23/2024 5:25 AM EST Emergency Department Encounter Location: [facility] Patient: Carlo Medina : 1980 Date [...] 380 ms QTC Interval 535 ms P [place] 58 degrees QRS [place] -78 degrees T Wave [place] 76 degrees NM Interval [address] abdomen pelvis wo [...] said he wanted to be transferred to [facility] because he still has symptoms. The cxr [...] are mis-transcribed.) Vic Loaiza MD Acute Care [facility] Vic Loaiza MD 08/23/24724 [id number] Nurse Note* Jacque Clark RN - 08/20/2024 3:01 PM EST . IV heplock removed. Discharge instructions reviewed with patient. All questions answered. Pt discharged to home with all belongings. * Jacque Clark RN - 08/20/2024 2:37 PM EST Pt adamant on leaving right now. Pt does not want meds to beds Patient would like medications sent to the [facility] in [place] on [place] . Dr. Aguilar notified via secure chat. * Jacque Clark RN - 08/20/2024 11:[address] Briones notified regarding pt refusing meds and lab draw. * Jacque Clark RN - 08/20/2024 7:[address] Aguilar notified tele order . Okay to have patient off tele. * Yue Patterson RN - 08/18/2024 7:22 PM EST [facility] called and states that patient has [...] the situation and politely declines going to [facility]. I updated Dr. Webb from [facility] regarding patient refusal to leave. [facility] called and updated that patient refusing togo. * Sonia Zambrano RN - 08/18/2024 9:32 AM EST Updated health system with patient vitals health system still does not have a bed health system will call when one is available * [...] removed on dayshift, patient refusing for staff development coordinator's to place IV, despite places to poke, [...] Dr. Peterson of [facility] beat run of [facility]. Pt asymptomatic. Mag level added to morning labs. * Luma Rangel RN - 08/14/2024 1:33 AM EST Pt refused bloodwork this night, RN attempted to educate on reasons why bloodwork being drawn daily. Notified Dr. Hawley. * Soraida Garsia RN - 08/13/2024 6:28 AM EST RN notified Dr. Hawley that patient is refusing all labs this morning. documented in this [facility]02-21-[facility]25 Miscellaneous Notes* Care Plan - Jacque Clark RN - 08/20/2024 12:54 PM EST * Care Coordination - Rima Reyes RN - 08/20/2024 12:24 PM EST Cardiology has signed off. Now on PO diuretics. Nephrology following. We do not take pt insurance, has refused transfer to [facility]. Anticipate discharge next 24 hrs, home with [...] will be discharged. Refused to go to [facility] last night. We do not accept hisinsurance. [...] information and a social security phone number [phone]. Explained that pt would need to contact [...] PM EST Has an accepting DR at [facility], no beds. Continues on IV Bumex. Plan [...] take his insurance. Can only go to [facility]. Made Dr aware, he is waiting for a return call to see if we can transfer. . 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 Met with pt to [...] any questions or concerns. DAVID Bajwa PA-C [facility] * Individualized Overall Plan of Care Note - Enedina Vega MD - 08/11/2024 10:58 AM EST Images from the original note were not included. Patient: Carlo Medina Room number: [id number] Date of Admit: 08/09/2024 LOS: 2 days Consult acknowledged Patient had been seen by [facility] - will transfer for continuity of care. Thank you Pager: [phone] Office: [phone]. * Care Coordination - MADDIE Hawk - 08/11/2024 10:55 AM EST 30 day re-admit completed. 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 Pt presents with worsening SOB/CARRERA, [...] at 5 years [facility] This mortality rate is comparable [...] restriction diet Weights with parameters Confirmed having [facility] phone number to report new/worsening symptoms and that IV/IM lasix available in the office. OK with continuing in [place] at [facility] for now, but would like to eventually get into [place] office. Importance of medication compliance Heart Failure Accreditation Quality Metrics All Clinical Practice Guidelines and references available on the [facility] Heart Failure resource page (Resources --> [facility] --> Heart Failure) Established Imaging Tech: Dr. Astudillo Follow up scheduled within 14 [...] SCHUYLER on CKD (Treatment pathway available on [employer] Heart Failure resource page) LUCRECIA/ARB/ARNI: No BB: Yes, carvedilol 25mg BID MRA: No- 12.5mg spironolactone daily on hold SGLT2-I: No Diuretic: Yes, bumex 1mg PO BID Hydral/ISDN: No CLEARANCE REP-D Appropriateness Screen (Referral pathway available on [facility] Heart Failure resource page) LVEF < [...] is improving Outcome: Progressing documented in this [facility]02-21-2025 [facility] 08-20-2024 History of Present illness Narrative* Alonzo [...] insurance is out of network, [email or web address] and discussed with hospitalist; patient accepted for transferto [facility] pending bed availability. Interval History: No [...] of IV medications per staff 08/19 Declined webme tx yesterday PM No CP today Sob [...] HFrEF (heart failure with reduced ejection fraction) ([facility]) 06/13/2024 Acute kidney injury superimposed on CKD ([facility]) ([facility]) 07/03/2024 At risk for obstructive sleep apnea 05/31/2024 o/p sleep study recommended during admission CHF (congestive heart failure) ([facility]) CKD (chronic kidney disease) H/O noncompliance with medical treatment, presenting hazards to health 06/19/2024 HFrEF (heart failure with reduced ejection fraction) ([facility]) 04/28/2024 History of left bundle branch block (LBBB) 06/19/2024 Hypercholesteremia Hypertension Left against medical advice 08/04/2024 Noncompliance 06/19/2024 NSTEMI (non-ST elevated myocardial infarction) ([facility]) 07/11/2024 Potential for deficient knowledge of congestive heart failure 08/05/2024 Pulmonary embolism ([facility]) Pulmonary vascular congestion 04/28/2024 Sinus tachycardia 06/19/2024 LABS: CBC: Recent Labs 08/18/24 03508/19/24 0043 08/20/24 0510 WBC 8.4 7.5 8.2 [...] 12 9 LIVER PROFILE: Recent Labs 08/18/24 03508/19/24 0043 08/20/24 0510 AST 36* 33 33 [...] - Continue chronic medications as able. - [facility] following for dispo planning. Notified by [facility] that patient's insurance is out of network and need to call [facility] transfer line ([phone]) to see if we can get him transferred. Called [facility] transfer line and discussed with hospitalist. Patient accepted for transfer to [facility] pending bed availability which was noted could [...] - Pending the following - clinical course, network relations consultant recs Extended Emergency Contact Information Primary Emergency Contact: Kaitlin Hicks Mobile Relation: Significant Other Secondary Emergency Contact: Indira Medina Mobile Relation: Sister Alonzo Otoniel Aguilar MD Division of Hospitalist Medicine [facility] * Saul Briones MD - 08/20/2024 11:00 AM EST [facility] Nephrology Progress Note Subjective/ 44 y.o. year old male who we are seeing in consultation for CKD stage 3b. Interval History Patient laying in bed, reports breathing feels improved LE edema improved Blood pressures soft. Denies any chest pain or orthopnea ROS Otherwise negative No interval changes to [facility]. All interval notes/labs/imaging reviewed. Objective/ Vitals: 08/19/24 [...] need for close follow-up. * Soraida Damon, RD - 08/19/2024 1:48 PM EST Nutrition [...] Mild (BLE Edema: Mild pitting, slight indentation) Promotion Producer Strength: Not Performed BRIEF HOSPITAL COURSE: Carlo [...] adamantly refusing swan. Nephrology consulted/following. Notified by [facility] that patient's insurance is out of network, so called [facility] transfer line and discussed with hospitalist; patient accepted for transferto [facility] pending bed availability. 08/19/24 Interval History: [...] 10. 44M w/ sig PMHx: HFrEF, NICM, ([facility] no CAD 05/2024), HTN, HLD, CKD III, DVTs on OAC), and poor health literacy/poor medication/follow up compliance who presented to [facility] on 08/09/24 2/2 SOB, CP< and abd [...] 1.7 1.4* HEPATIC: Recent Labs 08/17/24 0505 08/18/2435808/19/2442 AST 30 36* 33 ALT 56* 56* [...] (Per patient) % Weight Change (Calculated): 0 [place] Body Weight (lbs) (Calculated): 184 lbs [place] Body Weight (Kg) (Calculated): 84 kg % [place] Body Weight (Calculated): 90.8 % BMI (kg/m2) [...] Soraida Damon MS, RD, LD Contact: or [employer] Chat (dial *[phone] from hospital phone) * Saul Briones MD - 08/19/2024 12:31 PM EST [facility] Nephrology Progress Note Subjective/ 44 y.o. year old male who we are seeing in consultation for CKD stage 3b. Interval History Patient laying in bed, reports breathing feels improved Continues to endorse occasional non-productive cough Approx 4.75 L UOP yesterday LE edema improved Blood pressures soft. Denies any chest pain or orthopnea ROS Otherwise negative No interval changes to [facility]. All interval notes/labs/imaging reviewed. Objective/ Vitals: 08/19/24 [...] No primary care provider on file. Room#: [id number]/[id number] A BRIEF HOSPITAL COURSE: Carlo Medina is [...] insurance is out of network, so called [facility] transfer line and discussed with hospitalist; patient accepted for transferto [facility] pending bed availability. Interval History: No [...] of IV medications per staff 08/19 [email or web address] PM No CP today [...] HFrEF (heart failure with reduced ejection fraction) ([facility]) 06/13/2024 Acute kidney injury superimposed on CKD ([facility]) ([facility]) 07/03/2024 At risk for obstructive sleep apnea 05/31/2024 o/p sleep study recommended during admission CHF (congestive heart failure) ([facility]) CKD (chronic kidney disease) H/O noncompliance with medical treatment, presenting hazards to health 06/19/2024 HFrEF (heart failure with reduced ejection fraction) ([facility]) 04/28/2024 History of left bundle branch block (LBBB) 06/19/2024 Hypercholesteremia Hypertension Left against medical advice 08/04/2024 Noncompliance 06/19/2024 NSTEMI (non-ST elevated myocardial infarction) ([facility]) 07/11/2024 Potential for deficient knowledge of congestive heart failure 08/05/2024 Pulmonary embolism ([facility]) Pulmonary vascular congestion 04/28/2024 Sinus tachycardia 06/19/2024 LABS: CBC: Recent Labs 08/17/24 0505 08/18/24 03508/19/24 0043 WBC 7.4 8.4 7.5 RBC 4.33* [...] 13 12 LIVER PROFILE: Recent Labs 08/17/24 05008/18/2435808/19/24 004 AST 30 36* 33 ALT 56* 56* [...] - Continue chronic medications as able. - [facility] following for dispo planning. Notified by [facility] that patient's insurance is out of network and need to call [facility] transfer line ([phone]) to see if we can get him transferred. Called [facility] transfer line and discussed with hospitalist. Patient accepted for transfer to [facility] pending bed availability which was noted could [...] - Pending the following - clinical course, network relations consultant recs Extended Emergency Contact Information Primary Emergency Contact: Kaitlin Hicks Mobile Relation: Significant Other Secondary Emergency Contact: Indira Medina Mobile Relation: Sister Alonzo Aguilar MD Division of Hospitalist Medicine [facility] * Sepideh Townsend APRN - NURSE ADVISOR - 08/19/2024 8:48 AM EST [facility] Cardiology /Electrophysiology Progress Note HPI / Interval History: Carlo Medina is a 44 year old male with a PMH significant for HFrEF, NICM, ([facility] no CAD 05/2024), HTN, HLD, CKD III, DVTs on OAC), and poor health literacy/ poor medication/follow up compliance who presented to [facility] on 08/09/24 secondary to SOB, chest pain, and abdominal pain. EKG sinus tachycardia. Troponin negative. NT Pro BNP 05684. 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 Medications: apixaban, 5 mg, Oral, BID [START [...] lb 12.8 oz (69.8 kg) Standing scale 02/19/25 0300 158 lb 12.8 oz (72 kg) [...] No primary care provider on file. Room#: [facility] A BRIEF HOSPITAL COURSE: Carlo Medina [...] insurance is out of network, so called [facility] transfer line and discussed with hospitalist; patient accepted for transferto [facility] pending bed availability. Interval History: No [...] HFrEF (heart failure with reduced ejection fraction) ([facility]) 06/13/2024 Acute kidney injury superimposed on CKD ([facility]) ([facility]) 07/03/2024 At risk for obstructive sleep apnea 05/31/2024 o/p sleep study recommended during admission CHF (congestive heart failure) ([facility]) CKD (chronic kidney disease) H/O noncompliance with medical treatment, presenting hazards to health 06/19/2024 HFrEF (heart failure with reduced ejection fraction) ([facility]) 04/28/2024 History of left bundle branch block (LBBB) 06/19/2024 Hypercholesteremia Hypertension Left against medical advice 08/04/2024 Noncompliance 06/19/2024 NSTEMI (non-ST elevated myocardial infarction) ([facility]) 07/11/2024 Potential for deficient knowledge of congestive heart failure 08/05/2024 Pulmonary embolism ([facility]) Pulmonary vascular congestion 04/28/2024 Sinus tachycardia [...] Recent Labs 08/16/24 0859 08/17/24 0505 08/18/24 035 AST 35* 30 36* ALT 64* 56* [...] [facility] following for dispo planning. Notified by [facility] that patient's insurance is out of network and need to call [facility] transfer line ([phone]) to see if we can get him transferred. Called [facility] transfer line and discussed with hospitalist. Patient accepted for transfer to [facility] pending bed availability which was noted could [...] TBD - patient accepted for transfer to [facility] pending bed availability as patient out of network with insurance here - Pending the following - clinical course, network relations consultant recs Extended Emergency Contact Information Primary Emergency Contact: KurtKaitlin Mobile Relation: Significant Other Secondary Emergency Contact: Indira Medina Mobile Relation: Sister Alonzo Aguilar MD Division of Hospitalist Medicine [facility] * Selena Carlisle PA-C - 08/18/2024 10:44 AM EST [facility] Neph[facility] Progress Note Subjective/ 44 [...] ROS Otherwise negative No interval changes to [facility]. All interval notes/labs/imaging reviewed. Objective/ Vitals: 08/17/24 [...] any questions or concerns. DAVID Bajwa, BRONSON [facility] This note is not finalized until authorized by Attending physician. Cosigned by Saul Briones MD at 08/18/2024 2:45 PM EST Associated attestation - Saul Briones MD - 08/18/2024 2:45 PM EST Notes reviewed and plan discussed with the PA. Agree with above note except Any variance is noted below. Saul Briones MD [facility] [phone] * Sepideh Townsend APRN - NURSE ADVISOR - 08/18/2024 8:20 AM EST [facility] Cardiology /Electrophysiology Progress Note HPI / Interval History: Carlo Medina is a 44 year old male with a PMH significant for HFrEF, NICM, ([facility] no CAD 05/2024), HTN, HLD, CKD III, DVTs on OAC), and poor health literacy/ poor medication/follow up compliance who presented to [facility] on 08/09/24 secondary to SOB, chest pain, and abdominal pain. EKG sinus tachycardia. Troponin negative. NT Pro BNP 91604. Cardiology consulted and Pt found to be [...] to follow. [facility] Medications: apixaban, 5 mg, Oral, BID bumetanide, [...] No primary care provider on file. [facility] COURSE: Carlo Medina [...] insurance is out of network, so called [facility] transfer line and discussed with hospitalist; patient accepted for transferto [facility] pending bed availability. Interval History: No [...] HFrEF (heart failure with reduced ejection fraction) ([facility]) 06/13/2024 Acute kidney injury superimposed on CKD ([facility]) ([facility]) 07/03/2024 At risk for obstructive sleep apnea 05/31/2024 o/p sleep study recommended during admission CHF (congestive heart failure) ([facility]) CKD (chronic kidney disease) H/O noncompliance with medical treatment, presenting hazards to health 06/19/2024 HFrEF (heart failure with reduced ejection fraction) ([facility]) 04/28/2024 History of left bundle branch block (LBBB) 06/19/2024 Hypercholesteremia Hypertension Left against medical advice 08/04/2024 Noncompliance 06/19/2024 NSTEMI (non-ST elevated myocardial infarction) ([facility]) 07/11/2024 Potential for deficient knowledge of congestive heart failure 08/05/2024 Pulmonary embolism ([facility]) Pulmonary vascular congestion 04/28/2024 Sinus tachycardia [...] TCC following for dispo planning. Notified by [facility] that patient's insurance is out of network and need to call [facility] transfer line ([phone]) to see if we can get him transferred. Called [facility] transfer line and discussed with hospitalist. Patient accepted for transfer to [facility] pending bed availability which was noted could take awhile (accepting physician: Dr. Govea?). - am labs, replace lytes prn - delirium precautions: increase activity, schedule melatonin at bedtime, and limit nighttime disturbances - DVT prophylaxis: encourage ambulation and already anticoagulated Advance Directive: Full Code Anticipated Discharge - Date - TBD - Location - TBD - patient accepted for transfer to [facility] pending bed availability as patient out of network with insurance here - Pending the following - clinical course, network relations consultant recs Extended Emergency Contact Information Primary Emergency Contact: Kaitlin Hicks Mobile Relation: Significant Other Secondary Emergency Contact: Indira Medina Mobile Relation: Sister Alonzo Aguilar MD Division of Hospitalist Medicine [facility] * Sepideh Townsend APRN - VIKKI - 08/17/2024 8:35 AM EST [facility] [place] [facility] Cardiology /Electrophysiology Progress Note HPI / Interval History: Carlo Medina is a 44 year old male with a PMH significant for HFrEF, NICM, ([facility] no CAD 05/2024), HTN, HLD, CKD III, DVTs on OAC), and poor health literacy/ poor medication/follow up compliance who presented to [facility] on 08/09/24 secondary to SOB, chest pain, and abdominal pain. EKG sinus tachycardia. Troponin negative. NT Pro BNP 22155. Cardiology consulted and Pt found to be [...] Carlisle PA-C - 08/17/2024 8:27 AM EST [facility] Nephrology Progress Note Subjective/ 44 y.o. year [...] any questions or concerns. DAVID Bajwa, BRONSON [facility] Office This note is [...] the risk of arrhythmias. Saul Briones MD [facility] [phone] * Edgar Celaya MD - 08/16/2024 9:59 AM EST Hospitalist Progress Note 08/16/2024 Subjective: Admit Date: 08/09/2024 PCP: No primary care provider on file. [id number]RIEF HOSPITAL COURSE: Carlo Medina [...] insurance is out of network, so called [facility] transfer line and discussed with hospitalist; patient accepted for transferto [facility] pending bed availability. Interval History: No [...] HFrEF (heart failure with reduced ejection fraction) ([facility]) 06/13/2024 Acute kidney injury superimposed on CKD ([facility]) ([facility]) 07/03/2024 At risk for obstructive sleep apnea 05/31/2024 o/p sleep study recommended during admission CHF (congestive heart failure) ([facility]) CKD (chronic kidney disease) H/O noncompliance with medical treatment, presenting hazards to health 06/19/2024 HFrEF (heart failure with reduced ejection fraction) ([facility]) 04/28/2024 History of left bundle branch block (LBBB) 06/19/2024 Hypercholesteremia Hypertension Left against medical advice 08/04/2024 Noncompliance 06/19/2024 NSTEMI (non-ST elevated myocardial infarction) ([facility]) 07/11/2024 Potential for deficient knowledge of congestive heart failure 08/05/2024 Pulmonary embolism ([facility]) Pulmonary vascular congestion 04/28/2024 Sinus tachycardia [...] - Continue chronic medications as able. - [facility] following for dispo planning. Notified by [facility] that patient's insurance is out of network and need to call [facility] transfer line ([phone]) to see if we can get him transferred. Called [facility] transfer line and discussed with hospitalist. Patient accepted for transfer to [facility] pending bed availability which was noted could take awhile (accepting physician: Dr. Govea?). - am labs, replace lytes prn - delirium precautions: increase activity, schedule melatonin at bedtime, and limit nighttime disturbances - DVT prophylaxis: encourage ambulation and already anticoagulated Advance Directive: Full Code Anticipated Discharge - Date - TBD - Location - TBD - patient accepted for transfer to [facility] pending bed availability as patient out of network with insurance here - Pending the following - clinical course, network relations consultant recs Extended Emergency Contact Information Primary Emergency Contact: Kaitlin Hicks Mobile Relation: Significant Other Secondary Emergency Contact: Indria Medina Mobile Relation: Sister Edgar Celaya MD Division of Hospitalist Medicine [facility] * Selena Carlisle PA-C - 08/16/2024 8:11 AM EST [facility] Nephrology Progress [...] PFS. All interval notes/labs/imaging reviewed. Objective/ Vitals: 08/16/24 [...] any questions or concerns. DAVID Bajwa, BRONSON [facility] Office This note is not finalized until authorized by Attending physician. Cosigned by Saul Briones MD at 08/16/2024 5:08 PM EST Associated attestation - Saul Briones MD - 08/16/2024 5:08 PM EST Notes reviewed and plan discussed with the PA. Agree with above note except Any variance is noted below. Saul Briones MD [facility] [phone] * Luis Zavaleta PA-C - 08/16/2024 7:13 AM EST [facility] Cardiology /Electrophysiology Progress Note HPI / Interval History: Patient is a 44 year old male with a PMH significant for HFrEF, NICM, HTN who presented to [facility] on 08/09/24 secondary to SOB, chest pain, and abdominal pain. EKG sinus tachycardia. Troponin negative. NT Pro BNP 16615. Cardiology consulted and Pt found to be in ADHF, cold on exam. RHC was recommended, Pt refused. Pt has been intermittently refusing medications/ treatment while inpatient. He has been started on IV diuresis. [facility] May 2024 with no significant CAD. [...] BID Infusion Medications: Physical Examination: Vitals: 08/15/24 2045 08/16/24 0029 08/16/24 0355 08/16/24 0355 BP: 104/78 [...] face diagnostic evaluation on this patient in W5-199/W7-543 A. I have reviewed and agree with [...] Coppola MD, PhD Advanced Heart Failure Cardiology [facility] [place] 4:40 PM 08/16/24 * Sheela Adan RD [...] muscle mass loss Fluid Accumulation: Mild Extremities Promotion Producer Strength: Not Performed Nutrition Assessment: Patient with [...] On: Kcal/kg Weight Used for Energy Requirements: [place] Weight for Energy Calculation (kg): 84 kg Total Energy Requirements (kcals/day): 6387-1509 kcal/day (25-30) Weight Used for Protein Requirements: [place] Weight in Kg Used for Protein Requirements: [...] (Per patient) % Weight Change (Calculated): 0 [place] Body Weight (lbs) (Calculated): 184 lbs [place] Body Weight (Kg) (Calculated): 84 kg % [place] Body Weight (Calculated): 90.8 % BMI (kg/m2) [...] soon to determine Sheela Adan RD Contact: *[phone] * Selena Carlisle PA-C - 08/15/2024 12:10 PM EST [facility] Progress Note Subjective/ 44 [...] ROS Otherwise negative No interval changes to [facility]. All interval notes/labs/imaging reviewed. Objective/ Vitals: 08/15/24 [...] any questions or concerns. DAVID Bajwa, PA-C [facility] This note is not finalized until authorized by Attending physician. Cosigned by Saul Briones MD at 08/15/2024 6:07 PM EST Associated attestation - Saul Briones MD - 08/15/2024 6:07 PM EST Notes reviewed and plan discussed with the PA. Agree with above note except Any variance is noted below. Saul Briones MD [facility] [phone] * Edgar Celaya MD - 08/15/2024 9:17 AM EST Hospitalist Progress Note 08/15/2024 Subjective: Admit Date: 08/09/2024 PCP: No primary care provider on file. [facility]RSE: Carlo Medina [...] adamantly refusing swan. Nephrology consulted/following. Notified by [facility] that patient's insurance is out of network, so called [facility] transfer line and discussed with hospitalist; patient accepted for transferto [facility] pending bed availability. Interval History: Patient [...] HFrEF (heart failure with reduced ejection fraction) ([facility]) 06/13/2024 Acute kidney injury superimposed on CKD ([facility]) ([facility]) 07/03/2024 At risk for obstructive sleep apnea 05/31/2024 o/p sleep study recommended during admission CHF (congestive heart failure) ([facility]) CKD (chronic kidney disease) H/O noncompliance with medical treatment, presenting hazards to health 06/19/2024 HFrEF (heart failure with reduced ejection fraction) ([facility]) 04/28/2024 History of left bundle branch block (LBBB) 06/19/2024 Hypercholesteremia Hypertension Left against medical advice 08/04/2024 Noncompliance 06/19/2024 NSTEMI (non-ST elevated myocardial infarction) ([facility]) 07/11/2024 Potential for deficient knowledge of congestive heart failure 08/05/2024 Pulmonary embolism ([facility]) Pulmonary vascular congestion 04/28/2024 Sinus tachycardia 06/19/2024 LABS: CBC: Recent Labs 08/13/24 0924 08/14/24 1036 08/15/24 0630 WBC 7.4 7.3 8.1 RBC 4.17* 4.13* 4.38* HGB 13.8 13.8 14.7 HCT 40.9 41.7 43.5 MCV 98.1 101.0* 99.3* RDW 13.2 13.3 13.3 PLT 246 258 258 BMP: Recent Labs 08/13/24 0924 08/14/24 1036 08/15/24 0630 NA 136 138 137 K 3.7 3.3* 3.6 CL 105 102 102 CO2 20* 26 24 BUN 47* 39* 37* CREATININE 2.24* 2.17* 1.94* GLUCOSE 165* 151* 104* CALCIUM 8.4 8.2* 8.3* ANIONGAP 11 10 11 LIVER PROFILE: Recent Labs 08/13/24 0908/14/24 1036 08/15/24 0630 AST 38* 36* 32 ALT 83* [...] TCC following for dispo planning. Notified by [facility] that patient's insurance is out of network and need to call [facility] transfer line ([phone]) to see if we can get him transferred. Called [facility] transfer line and discussed with hospitalist. Patient accepted for transfer to [facility] pending bed availability which was noted could take awhile (accepting physician: Dr. Govea?). - am labs, replace lytes prn - delirium precautions: increase activity, schedule melatonin at bedtime, and limit nighttime disturbances - DVT prophylaxis: encourage ambulation and already anticoagulated Advance Directive: Full Code Anticipated Discharge - Date - TBD - Location - TBD - patient accepted for transfer to [facility] pending bed availability as patient out of network with insurance here - Pending the following - clinical course, network relations consultant recs Extended Emergency Contact Information Primary Emergency Contact: Kaitlin Hicks Mobile Relation: Significant Other Secondary Emergency Contact: Indira Medina Mobile Relation: Sister Edgar Celaya MD Division of Hospitalist Medicine [facility] * Luis Zavaleta PA-C - 08/15/2024 8:05 AM EST [facility] Cardiology /Electrophysiology Progress Note HPI / Interval History: Patient is a 44 year old male with a PMH significant for HFrEF, NICM, HTN who presented to [facility] on 08/09/24 secondary to SOB, chest pain, and abdominal pain. EKG sinus tachycardia. Troponin negative. NT Pro BNP 72205. Cardiology consulted and Pt found to be in ADHF, cold on exam. RHC was recommended, Pt refused. Pt has been intermittently refusing medications/ treatment while inpatient. He has been started on IV diuresis. [facility] May 2024 with no significant CAD. [...] Zavaleta PA-C Date Of Service 08/15/2024 * Ofelai Villalobos MD - 08/14/2024 3:14 PM EST [facility] Cardiology /Electrophysiology Progress Note HPI / Interval History: Carlo Medina is a 44 year old male with PMH of HFrEF 2/2 NICM ([facility] no CAD 05/2024), HTN, HLD CKD III, DVTs on OAC), and poor health literacy/ poor medication/follow up compliance who presented to [facility] on 08/09/24 with complaints of chest pain, [...] Bumex drip. Refuses right heart cath and Savery guided therapyif needed. - Continue to hold [...] Carlisle PA-C - 08/14/2024 1:39 PM EST [facility] Progress Note Subjective/ 44 [...] PLT 263 246 258 Recent Labs 08/12/24 01308/13/24 0924 08/14/24 1036 NA 136 136 138 [...] any questions or concerns. DAVID Bajwa, BRONSON [facility] This note is not finalized until authorized by Attending physician. Cosigned by Saul Briones MD at 08/14/2024 4:02 PM EST Associated attestation - Saul Briones MD - 08/14/2024 4:02 PM EST Notes reviewed and plan discussed with the PA. Agree with above note except Any variance is noted below. Saul Briones MD [facility] [phone] * Edgar Celaya MD - 08/14/2024 8:38 [...] adamantly refusing swan. Nephrology consulted/following. Notified by [facility] that patient's insurance is out of network, so called [facility] transfer line and discussed with hospitalist; patient accepted for transferto [facility] pending bed availability. Interval History: Overnight, [...] HFrEF (heart failure with reduced ejection fraction) ([facility]) 06/13/2024 Acute kidney injury superimposed on CKD ([facility]) ([facility]) 07/03/2024 At risk for obstructive sleep apnea 05/31/2024 o/p sleep study recommended during admission CHF (congestive heart failure) ([facility]) CKD (chronic kidney disease) H/O noncompliance with medical treatment, presenting hazards to health 06/19/2024 HFrEF (heart failure with reduced ejection fraction) ([facility]) 04/28/2024 History of left bundle branch block (LBBB) 06/19/2024 Hypercholesteremia Hypertension Left against medical advice 08/04/2024 Noncompliance 06/19/2024 NSTEMI (non-ST elevated myocardial infarction) ([facility]) 07/11/2024 Potential for deficient knowledge of congestive heart failure 08/05/2024 Pulmonary embolism ([facility]) Pulmonary vascular congestion 04/28/2024 Sinus tachycardia 06/19/2024 LABS: CBC: Recent Labs 08/12/2413308/13/24 0924 WBC 8.0 7.4 RBC 4.18* 4.17* HGB 14.0 13.8 HCT 42.2 40.9 MCV 101.0* 98.1 RDW 13.2 13.2 PLT 263 246 BMP: Recent Labs 08/12/24133 07/14/25 0924 NA 136 136 K 4.3 3.7 CL 106 105 CO2 19* 20* BUN 42* 47* CREATININE 2.23* 2.24* GLUCOSE 118* 165* CALCIUM 8.2* 8.4 ANIONGAP 11 11 LIVER PROFILE: Recent Labs 08/12/244 08/13/24 0924 AST 47* 38* ALT 86* [...] out of network and need to call [facility] transfer line ([phone]) to see if we can get him transferred. Called [facility] transfer line and discussed with hospitalist. Patient accepted for transfer to [facility] pending bed availability which was noted could take awhile (accepting physician: Dr. Govea?). - am labs, replace lytes prn - delirium precautions: increase activity, schedule melatonin at bedtime, and limit nighttime disturbances - DVT prophylaxis: encourage ambulation and already anticoagulated Advance Directive: Full Code Anticipated Discharge - Date - TBD - Location - TBD - patient accepted for transfer to [facility] pending bed availability as patient out of network with insurance here - Pending the following - clinical course, network relations consultant recs Extended Emergency Contact Information Primary Emergency Contact: Kaitlin Hicks Mobile Relation: Significant Other Secondary Emergency Contact: Indira Medina Mobile Relation: Sister Edgar Celaya MD Division of Hospitalist Medicine [facility] * THOMAS Rogel CNP - 08/13/2024 12:40 [...] No primary care provider on file. Room#: [facility] A BRIEF HOSPITAL COURSE: Carlo Medina [...] insurance is out of network, so called [facility] transfer line and discussed with hospitalist; patient accepted for transferto [facility] pending bed availability. Interval History: No [...] HFrEF (heart failure with reduced ejection fraction) ([facility]) 06/13/2024 Acute kidney injury superimposed on CKD ([facility]) ([facility]) 07/03/2024 At risk for obstructive sleep apnea 05/31/2024 o/p sleep study recommended during admission CHF (congestive heart failure) ([facility]) CKD (chronic kidney disease) H/O noncompliance with medical treatment, presenting hazards to health 06/19/2024 HFrEF (heart failure with reduced ejection fraction) ([facility]) 04/28/2024 History of left bundle branch [...] 10 11 11 LIVER PROFILE: Recent Labs 08/11/2421608/12/2413308/13/24923 AST 47* 47* 38* ALT 86* 86* [...] planning. Discussed with TCC today. Notified by [facility] that patient's insurance is out of network and need to call [facility] transfer line ([phone]) to see if we can get him transferred. Called [facility] transfer line and discussed with hospitalist. Patient accepted for transferto [facility] pending bed availability which was noted could take awhile (accepting physician: Dr. Govea?). - am labs, replace lytes prn - delirium precautions: increase activity, schedule melatonin at bedtime, and limit nighttime disturbances - DVT prophylaxis: encourage ambulation and already anticoagulated Advance Directive: Full Code Anticipated Discharge - Date - TBD - Location - TBD - patient accepted for transfer to [facility] pending bed availability as patient out of network with insurance here - Pending the following - clinical course, network relations consultant recs Extended Emergency Contact Information Primary Emergency Contact: Kaitlin Hicks Mobile Relation: Significant Other Secondary Emergency Contact: Indira Medina Mobile Relation: Sister Edgar Celaya MD Division of Hospitalist Medicine [facility] * Selena Carlisle PA-C - 08/13/2024 9:39 AM EST [facility] Progress [...] ROS Otherwise negative No interval changes to [facility]. All interval notes/labs/imaging reviewed. Objective/ Vitals: 08/12/24 [...] polyethylene glycol (PEG) 3350 Data/ Recent Labs 08/11/2421608/12/2413308/13/24 0924 WBC 8.2 8.0 7.4 HGB 15.0 13.9 14.0 13.8 HCT 42.0 42.2 40.9 MCV 100.0* 101.0* 98.1 PLT 243 263 246 Recent Labs 08/11/2421608/12/24 013 NA 130* 136 K 4.0 4.3 CL [...] d/w patient, RN on floor and cardiology NURSE ADVISOR We will follow. Please do not hesitate to call with any questions or concerns. DAVID Bajwa, BRONSON [facility] Office This note is [...] of further deterioration. Declined. Saul Briones MD [facility] [phone] * Sepideh THOMAS Townsend - NURSE ADVISOR - 08/13/2024 7:22 AM EST [facility] Cardiology /Electrophysiology Progress Note HPI / Interval History: Carlo Medina is a 44 year old male with PMH of HFrEF 2/2 NICM ([facility] no CAD 05/2024), HTN, HLD CKD III, DVTs on OAC), and poor health literacy/ poor medication/follow up compliance who presented to [facility] on 08/09/24 with complaints of chest pain, [...] No primary care provider on file. Room#: W5-543/W9-780 A BRIEF HOSPITAL COURSE: Carlo Medina is [...] out of network and need to call [facility] transfer line ([phone]) to see if we can get him transferred. Called [facility] transfer line and discussed with hospitalist. Patient accepted for transfer to [facility] pending bed availability which was noted could [...] HFrEF (heart failure with reduced ejection fraction) ([facility]) 06/13/2024 Acute kidney injury superimposed on CKD (H[facility]) ([facility]) 07/03/2024 At risk for obstructive sleep apnea 05/31/2024 o/p sleep study recommended during admission CHF (congestive heart failure) ([facility]) CKD (chronic kidney disease) H/O noncompliance with medical treatment, presenting hazards to health 06/19/2024 HFrEF (heart failure with reduced ejection fraction) ([facility]) 04/28/2024 History of left bundle branch block (LBBB) 06/19/2024 Hypercholesteremia Hypertension Left against medical advice 08/04/2024 Noncompliance 06/19/2024 NSTEMI (non-ST elevated myocardial infarction) ([facility]) 07/11/2024 Potential for deficient knowledge of congestive heart failure 08/05/2024 Pulmonary embolism ([facility]) Pulmonary vascular congestion 04/28/2024 Sinus tachycardia [...] Held Coreg. Recs noted. Briefly discussed with financial accounting manager and HF attending today. - BNP 16,371 (08/09) -> 10,757 (08/12) - Strict I/O's, daily weight - Nephrology following. Recs noted. - Continue chronic medications as able. - TCC following for dispo planning. Discussed with TCC today. Notified by [facility] that patient's insurance is out of network and need to call [facility] transfer line ([phone]) to see if we can get him transferred. Called [facility] transfer line and discussed with hospitalist. Patient accepted for transferto [facility] pending bed availability which was noted could take awhile (accepting physician: Dr. Govea?). - am labs, replace lytes prn - delirium precautions: increase activity, schedule melatonin at bedtime, and limit nighttime disturbances - DVT prophylaxis: encourage ambulation and already anticoagulated Advance Directive: Full Code Anticipated Discharge - Date - TBD - Location - TBD - patient accepted for transfer to [facility] pending bed availability as patient out of network with insurance here - Pending the following - clinical course, network relations consultant recs Extended Emergency Contact Information Primary Emergency Contact: Kaitlin Hicks Mobile Relation: Significant Other Secondary Emergency Contact: Indira Medina Mobile Relation: Sister Edgar Celaya MD Division of Hospitalist Medicine [facility] * Ofelia Villalobos MD - 08/12/2024 9:33 AM EST [facility] [place] [facility] Cardiology /Electrophysiology Progress Note HPI / Interval History: Carlo Medina is a 44 y.o. male with a PMHx of HFrEF, CKD, HTN, HLD, LBBB, NSTEMI and pulmonary vascular congestion who got admitted from [facility] ED for further evaluation and management of chest pain,ADHF and SCHUYLER on CKD. In the ED, patient was afebrile, tachycardic between 110-120's, normal respirations and satting well on 2L NC. CMP showed Scr at 1.94, CBC unremarkable, [place] [address].EKG showed sinus tachycardia with left atrial enlargement. Chest x-ray showed enlarged cardiac silhouette similar to previous exam. He was given morphine 4mg x2 and Zofran 4mg x2. On assessment, patient said he has slept well last night and is feeling okay. 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 He had an episode of vomiting last [...] for ED and Inpatient algorithms. Recent Labs 08/09/24 2155 08/11/24 0217 08/12/24 0134 NA 139 130* 136 K 3.8 4.0 4.3 CL 104 102 106 CO2 27 18* 19* BUN 35* 39* 42* CREATININE 1.94* 1.80* 2.23* Recent Labs 08/09/245 08/11/24 0217 08/12/24 0134 WBC 8.8 8.2 [...] and my assessment and plan. * Selena CondonBRONSON mims - 08/12/2024 7:34 AM EST [facility] Progress Note Subjective/ 44 y.o. year old male who we are seeing in consultation for CKD stage 3b. Interval History Laying in bed, not feeling well C/o abdominal discomfort and nausea Continues to endorse CARRERA Remains on RA UOP suboptimal ROS Otherwise negative No interval changes to [facility]. All interval notes/labs/imaging reviewed. Objective/ Vitals: 08/11/24 [...] PLT 245 243 263 Recent Labs 08/09/24215408/11/2421608/12/24 0134 NA 139 130* [...] any questions or concerns. DAVID Bajwa, BRONSON [facility] This note is not finalized [...] recommended course of action. Saul Briones MD [facility] [phone] * Duc Nuñez, OT - 08/11/2024 2:58 PM EST Images from the original note were not included. OCCUPATIONAL THERAPY [facility] Name/MRN: Carlo Medina ([id number]) Date: 08/11/2024 OT eval and treatment received. [...] be monitored and followed by the diet furniture technician. Melissa Cortes DT * Lilia Brice, PT - 08/11/2024 1:13 PM EST Images from the original note were not included. PHYSICAL THERAPY [facility] Name/MRN: Carlo Medina ([id number]) Date: 08/11/2024 PT orders received. Chart reviewed. Spoke with patient. Patient states he is mobilizing at baseline/independent level and does not need or want PT at this time. Will sign off. Lilia Brice PT * Edgar Celaya MD - 08/11/2024 10:14 AM EST Hospitalist Progress Note 08/11/2024 Subjective: Admit Date: 08/09/2024 PCP: No primary care provider on file. [facility]: Carlo Medina [...] HFrEF (heart failure with reduced ejection fraction) ([facility]) 06/13/2024 Acute kidney injury superimposed on CKD ([facility]) ([facility]) 07/03/2024 At risk for obstructive sleep apnea 05/31/2024 o/p sleep study recommended during admission CHF (congestive heart failure) ([facility]) CKD (chronic kidney disease) H/O noncompliance with medical treatment, presenting hazards to health 06/19/2024 HFrEF (heart failure with reduced ejection fraction) ([facility]) 04/28/2024 History of left bundle branch block (LBBB) 06/19/2024 Hypercholesteremia Hypertension Left against medical advice 08/04/2024 Noncompliance 06/19/2024 NSTEMI (non-ST elevated myocardial infarction) ([facility]) 07/11/2024 Potential for deficient knowledge of congestive heart failure 08/05/2024 Pulmonary embolism ([facility]) Pulmonary vascular congestion 04/28/2024 Sinus tachycardia [...] - Pending the following - clinical course, network relations consultant recs Extended Emergency Contact Information Primary Emergency Contact: KurtLilianaKaitlin Mobile Relation: Significant Other Secondary Emergency Contact: [place],Indira Mobile Relation: Sister Edgar Celaya MD Division of Hospitalist Medicine [facility] documented in this [facility]02-16-2025 Consult note* Sheela Adan RD - [...] of care. Sheela Adan RD Contact #: *[phone] * Ofelia Villalobos MD - 08/11/2024 11:31 AM EST [facility] [place] [facility] Cardiology /Electrophysiology Consult Note Reason for Consult/Chief Complaint: Evaluation of HfrEF Referring provider: Dr. 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 male with a PMHx of HFrEF, CKD, HTN, HLD, LBBB, NSTEMI and pulmonary vascular congestion who got admitted from [facility] ED for further evaluation and management of chest pain,ADHF and SCHUYLER on CKD. In the ED, patient was afebrile, tachycardic between 110-120's, normal respirations and satting well on 2L NC. CMP showed Scr at 1.94, CBC unremarkable, [place] [address].EKG showed sinus tachycardia with left atrial enlargement. Chest x-ray showed enlarged cardiac silhouette similar to previous exam. He was given morphine 4mg x2 and Zofran 4mg x2. On assessment, patient said he has slept well last night and is feeling okay. 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 He had an episode of vomiting last [...] for ED and Inpatient algorithms. Recent Labs 08/09/24215408/11/24 0217 NA 139 130* K 3.8 4.0 CL 104 102 CO2 27 18* BUN 35* 39* CREATININE 1.94* 1.80* EGFR 42.4* 46.4* Recent Labs 02215408/11/24216 WBC 8.8 8.2 HGB 14.2 15.0 13.9 [...] 18 (A) 55 - 100 % Merlin Bnigham DATE of SERVICE: 08/11/2024 I, Dr. Villalobos, [...] CONSULT TO NEPHROLOGY [facility] Consultation Note Reason for consultation: SCHUYLER on CKD Chief Complaint: Chest Pain,. ADHF & SCHUYLER on CKD History of Presenting Illness Patient is a 44 y.o. male with PMHx noted below who presented to [facility] ED on 08/09/2024 with chief complaint listed [...] 2/2 HTN. Denies ever being seen by set up and lay out inspector outpatient. Home medications notable for aldactone 25 mg/day, NaHCo3 tablets 1,300 mg BID, potassium [id number] mEq/day, losartan 50 mg/day, bumex 1 mg [...] HFrEF (heart failure with reduced ejection fraction) ([facility]) 06/13/2024 Acute kidney injury superimposed on CKD ([facility]) ([facility]) 07/03/2024 At risk for obstructive sleep apnea 05/31/2024 o/p sleep study recommended during admission CHF (congestive heart failure) ([facility]) CKD (chronic kidney disease) H/O noncompliance with medical treatment, presenting hazards to health 06/19/2024 HFrEF (heart failure with reduced ejection fraction) ([facility]) 04/28/2024 History of left bundle branch block (LBBB) 06/19/2024 Hypercholesteremia Hypertension Left against medical advice 08/04/2024 Noncompliance 06/19/2024 NSTEMI (non-ST elevated myocardial infarction) ([facility]) 07/11/2024 Potential for deficient knowledge of congestive heart failure 08/05/2024 Pulmonary embolism ([facility]) Pulmonary vascular congestion 04/28/2024 Sinus tachycardia 06/19/2024 Past Surgical History: Procedure Laterality Date CARDIAC CATHETERIZATION N/A 06/17/2024 Performed by Akilah Diaz MD at [facility] Cardiac Hangar Attendant Review of Systems All 12 systems reviewed [...] 0 min Stress: Stress Concern Present (07/12/2024) [place] [employer] - Occupational Stress Questionnaire Feeling of Stress : To some extent Social Connections: Moderately Integrated (07/12/2024) Social Connection and Isolation Panel [NHANES] Frequency of Communication with Friends and Family: Twice a week Frequency of Social Gatherings with Friends and Family: Once a week Attends [facility]: 1 to 4 times per year [...] Carlo Medina DATE: August 11, 2024 Office [facility] [phone] Note not finalized until authorized by Attending [...] 12.5 mg twice daily. Saul Briones MD [facility] [phone] documented in this [facility]2025 Telephone encounter Note* Telephone Encounter - Christopher Tai MD - 08/12/2024 3:23 PM EST Images from the original note were not included. PIC Triage Note 08/12/2024 [facility] patient being transferred from: [facility]: Dr Godinez Reason for admission: Heart Failure Reason For Transfer: Out of network, out of insurance History of biventricular HF, EF 20% last year. 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 Other workup pending. Unknown substance/drug history, tox screens negative this admission. Presented 08/09 for chest pain/SOB to [facility]. Admission for acute on chronic CF Repeat echo 18% Team wanted to do swan therapy, but patient declined Has also been declining IV meds Currently on Oral bumix W/ hydral and clarer Says he'll consider IV management in future if doesn't get better On physical exam: HDS, Laying flat, on room air, no orthopnea Plus 1 edema Dry weight unclear, did not have today's weight either Labs Today: [place] 55462 [place] [address] Baseline around 17-20K Cr 2.23 Baseline 1.68 [...] Christopher Tai MD Internal Medicine-Pediatrics PGY-4 Pager: [phone] [id number] Miscellaneous Notes* Telephone Encounter - Christopher Tai MD - 08/12/2024 3:23 PM EST Images from the original note were not included. PIC Triage Note 08/12/2024 [facility] patient being transferred from: [facility]: Dr Godinez Reason for admission: Heart Failure Reason For Transfer: Out of network, out of insurance History of biventricular HF, EF 20% last year. 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 Other workup pending. Unknown substance/drug history, tox screens negative this admission. Presented 08/09 for chest pain/SOB to [facility]. Admission for acute on chronic CF Repeat [...] have today's weight either Labs Today: [place] 63770 [place] [address] Baseline around 17-20K Cr 2.23 Baseline 1.68 [...] Christopher Tai MD Internal Medicine-Pediatrics PGY-4 Pager: [phone] documented in this [id number] Hospital Discharge instructions* Discharge Instructions* Dia Gaitan RN - 08/11/2024 10:39 AM EST My Heart Failure Action Plan Use the below chart as a guide for daily symptom monitoring after you obtain your morning weight. My Imaging Tech: Dr. [facility] [phone] My Diagnosis: Heart failure with reduced ejection fraction My Ejection Fraction: ~20% NORMAL 50-65% My Exercise Goal: as tolerated My Weight Goal: Standing weight day of hospital discharge Weigh yourself daily using the same scale. If you gain more than 3 pounds in 24 hours or 5 pounds in a week Call your Imaging Tech!! My Diet Goal: General diet recommendations for [...] your heart. The Cardiac Rehab team at [facility] consists of highly skilled exercise physiologists, nurses, [...] We have easily accessible facilities on both [facility] and [facility] with free street level parking. There is a mandatory 6 week wait period following a hospitalization to ensure you are stable enough to participate. Cardiac Rehab staff will contact you about 2 weeks prior to the identified start date to assess payment and schedule your first visit. If needed, [facility] Financial Assistanceis available! If you have other questions or concerns, be sure to ask your provider. We look forward to seeing you! Our locations: [facility] [phone] (Ground floor past [address]) [facility] [id number] (Ground floor) * Discharge Instr - ROBERT* [...] 06/17/2024 Performed by Akilah Diaz MD at [facility] Cardiac Hangar Attendant Immunization History: There is no immunization history [...] 12.8 oz) Mental Status: {ROBERT Patient Mental Status:39413} IV Access: {ROBERT IV Access:56863} Nursing Mobility/ADLs: Walking {EMELY ADL:89182::Independent} Transfer {EMELY ADL:92630::Independent} Bathing {EMELY ADL:58302::Independent} Dressing {EMELY ADL:21077::Independent} Toileting {EMELY ADL:91092::Independent} Feeding {EMELY ADL:17201::Independent} Trim Machine Operator {EMELY ADL:62529::Independent} Med Delivery {yes/no:84817} Wound Care Documentation and Therapy: Elimination: Continence: Bowel: {yes/no:00250} Bladder: {yes/no:47157} Urinary Catheter: {ROBERT Urinary Catheter:69842} Colostomy/Ileostomy/Ileal Conduit: {YES / NO:} Date of Last BM: Intake/Output Summary (Last 24 hours) at 08/19/2024 1349 Last data filed at 08/19/2024 0800 Gross per 24 hour Intake 650 ml Output 3350 ml Net -2700 ml I/O last 3 completed shifts: In: 1130 (16.2 mL/kg) [P.O.:1130] Out: 7450 (106.8 mL/kg) [Urine:7450 (3 mL/kg/hr)] Weight: 69.8 kg Safety Concerns: {ROBERT Safety Concerns:60737} Impairments/Disabilities: {ROBERT Impairments/Disabilities:34754} Nutrition Therapy: Current Nutrition Therapy: {ROBERT Diet List:68957} Routes of Feeding: {routes of feedin} Liquids: {liquid consistency:90185} Daily Fluid Restriction: {daily fluid restriction:11371} Last Modified Barium Swallow with Video (Video Swallowing Test): {done not done:08961} Treatments at the Time of Hospital Discharge: Respiratory Treatments: Oxygen Therapy: {Therapy; copd oxygen:34884} Ventilator: {ROBERT Ventilator:50568} Rehab Therapies: {GEN THERAPY DISCIPLINE SCAL:9412795} Weight Bearing Status/Restrictions: {POD WEIGHT BEARIN} Other Medical Equipment (for information only, NOT a DME order): {Assistive Devices DME:07106} Other Treatments: Patient's personal belongings (please select all that are sent with patient): {ROBERT Patient Belongings:01848} RN SIGNATURE: {E-signature:21709} CASE MANAGEMENT/SOCIAL WORK SECTION Inpatient Status Date: Discharging to Facility/ Agency Name: Address: Phone: Fax: Dialysis Facility (if applicable) Name: Address: Dialysis Schedule: Phone: Fax: [employer] Game [employer]/Ebd Teacher signature: {E-signature:62596} PHYSICIAN SECTION Name: Carlo Medina Prognosis: {Rehab Prognosis:63639} Condition at Discharge: {Patient Condition:09693} Rehab Potential (if transferring to Rehab): {Rehab Prognosis:72109} Recommended Labs or Other Treatments After Discharge: The individual is being admitted to a nursing facility directly from an [facility] or a unit of a [facility] that is not operated by or licensed by [facility] under section 5119.14 or 5160-3-15.1 5 The individual requires the level of services provided by a nursing facility for the condition for which he or she was treated in the hospital and, Physician Certification: I certify the above information and transfer of Carlo Medina is necessary for the continuing treatment of the diagnosis listed and that he requires {ROBERT Level of Care:62370} for {greater less than:13244} 30 days. Update Admission H&P: {ROBERT Changes in H&P:23787} PHYSICIAN SIGNATURE: {E-signature:67785} documented in this [facility]02-11-2025 [facility] 08-10-2024 History and physical note* Dasha Lyn MD - 08/10/2024 8:53 PM EST Attending History and Physical Admit Date: 08/09/2024 PCP: No primary care provider on file. CHIEF COMPLAINT: Chest Pain,. ADHF & SCHUYLER on CKD History Obtained From: The patient & EHR HISTORY OF PRESENT ILLNESS: Carlo is a 44 y.o. male with with PMH below who got admitted from the [facility] ED to the hospital forfurther evaluation and management of Chest Pain, ADHF & SCHUYLER on CKD. Upon arrival to the ED, the pt was tachycardiac 110-120s, afebrile, satting well on 2L NC. The initial workup at the ED revealed: - sCr: 1.94 - CBC wnl - Pro-BNP: 30723 - Trop wnl - EKG showed sinus [...] HFrEF (heart failure with reduced ejection fraction) ([facility]) 06/13/2024 Acute kidney injury superimposed on CKD (HCC) ([facility]) 07/03/2024 At risk for obstructive sleep apnea 05/31/2024 o/p sleep study recommended during admission CHF (congestive heart failure) ([facility]) CKD (chronic kidney disease) H/O noncompliance with medical treatment, presenting hazards to health 06/19/2024 HFrEF (heart failure with reduced ejection fraction) ([facility]) 04/28/2024 History of left bundle branch block (LBBB) 06/19/2024 Hypercholesteremia Hypertension Left against medical advice 08/04/2024 Noncompliance 06/19/2024 NSTEMI (non-ST elevated myocardial infarction) ([facility]) 07/11/2024 Potential for deficient knowledge of congestive heart failure 08/05/2024 Pulmonary embolism ([facility]) Pulmonary vascular congestion 04/28/2024 Sinus tachycardia 06/19/2024 Past Surgical History: Past Surgical History: Procedure Laterality Date CARDIAC CATHETERIZATION N/A 06/17/2024 Performed by Akilah Diaz MD at [facility] Cardiac Hangar Attendant Social History: Social History Socioeconomic History Marital [...] 0 min Stress: Stress Concern Present (07/12/2024) [place] [employer] [employer] - Occupational Stress Questionnaire Feeling of Stress : To some extent Social Connections: Moderately Integrated (07/12/2024) Social Connection and Isolation Panel [NHANES] Frequency of Communication with Friends and Family: Twice a week Frequency of Social Gatherings with Friends and Family: Once a week Attends [facility]: 1 to 4 times per year [...] MD Division of Hospitalist Medicine Acute care [facility] documented in this [facility]02-11-2025 Emergency department Note* Deena Piper RN [...] continued wait time for bed assignment. ERLEY * Marycarmen Dias RN - 08/10/2024 9:45 AM EST Pt has oxygen removed and sats have been maintained at 97-100% on room air. Will continue to monitor. ERLEY Piper RN - 08/10/2024 1:40 AM EST This nurse returned to room, No urine in urinal or bedside commode, no bm in bedside commode noted.A wipe was in bedside commode. Commode emptied. Patients cardiac monitoring and bp cuff that patient removed was replaced. ERLEY Piper RN - 08/10/2024 1:10 AM EST Patient turned interventionist light. Patient requesting to use restroom. The [...] patient was observed pulling off monitoring equipment. ERLEY Piper RN - 08/10/2024 12:51 AM EST Notified physician patients spo2 decreasing and blood pressures soft 2L o2 initiated ERLEY Piper RN - 08/10/2024 12:07 AM EST [...] HFrEF (heart failure with reduced ejection fraction) ([facility]) 06/13/2024 Acute kidney injury superimposed on CKD ([facility]) ([facility]) 07/03/2024 At risk for obstructive sleep apnea 05/31/2024 o/p sleep study recommended during admission CHF (congestive heart failure) ([facility]) CKD (chronic kidney disease) H/O noncompliance with medical treatment, presenting hazards to health 06/19/2024 HFrEF (heart failure with reduced ejection fraction) ([facility]) 04/28/2024 History of left bundle branch block (LBBB) 06/19/2024 Hypercholesteremia Hypertension Left against medical advice 08/04/2024 Noncompliance 06/19/2024 NSTEMI (non-ST elevated myocardial infarction) ([facility]) 07/11/2024 Potential for deficient knowledge of congestive heart failure 08/05/2024 Pulmonary embolism ([facility]) Pulmonary vascular congestion 04/28/2024 Sinus tachycardia 06/19/2024 SURGICAL HISTORY Past Surgical History: Procedure Laterality Date CARDIAC CATHETERIZATION N/A 06/17/2024 Performed by Akilah Diaz MD at [facility] Cardiac Hangar Attendant CURRENT MEDICATIONS Previous Medications APIXABAN (ELIQUIS) 5 [...] 0 min Stress: Stress Concern Present (07/12/2024) [place] [employer] [employer] - Occupational Stress Questionnaire Feeling of Stress : To some extent Social Connections: Moderately Integrated (07/12/2024) Social Connection and Isolation Panel [NHANES] Frequency of Communication with Friends and Family: Twice a week Frequency of Social Gatherings with Friends and Family: Once a week Attends [facility] Services: 1 to 4 times per year [...] DIAGNOSIS/MDM: Vitals: Vitals: 08/10/24 1715 08/10/24 1800 02/05/24 [id number] BP: 102/89 103/52 BP Location: Patient Position: [...] admission, will be awaiting a bed at [facility]. I informed patient I would re-order his home meds but he declined and stated he would rather have them at [facility]. CRITICAL CARE TIME CONSULTS: None PROCEDURES: [...] Emergency Medicine Provider Joel Fernandes MD 08/09/24 2289 Joel Fernandes MD 08/10/24 7686 * Deena Piper RN - 08/09/2024 9:09 [...] ultrasound IV if needed. documented in this [facility]02-10-2025 NoteChart reviewed. 2nd attempt to contact patient for transitions post-discharge outreach. No answer, left VM to please return my call. Will follow up again. [facility]02-06-2025 Telephone encounter Note* Telephone Encounter - Ally Machado RN - 08/05/2024 1:33 PM EST Lengthy conversation with the pt. He was unsure if he plans to follow with Dr Astudillo or any doctors in [place] as he was really disappointed in the [...] them to call back with any questions. [id number] Miscellaneous Notes* Telephone Encounter - Ally Machado RN - 08/05/2024 1:33 PM EST Lengthy conversation with the pt. He was unsure if he plans to follow with Dr Astudillo or any doctors in [place] as he was really disappointed in the [...] med changes from yesterday (increase Losartan, Increase Boynton). He may decrease potassium supplement to 20 [...] office. Patient in NAD. documented in this [facility]02-06-2025 Telephone encounter Note* Telephone Encounter - Sergei Astudillo MD - 08/05/2024 1:10 PM EST Labs reviewed -- I still recommedn the med changes from yesterday (increase Losartan, Increase Boynton). He may decrease potassium supplement to 20 mEq. He denied SOB yesterday -- however, he did note that the lasix didn't make him urinate much about baselline. He can try Bumex 1 mg BID to REPLACE Lasix to see if this helps him urinate more and improve his SOB [facility] [id number] Telephone encounter Note* Telephone Encounter - Ally Machado RN - 08/05/2024 1:04 PM EST Pt presented to ER last evening, approx [address] Astudillo in office. Pt then left theER AMA, less than 20 minutes after arriving to the ER. Dr Astudillo will review labs [facility] [id number] Telephone encounter Note* Telephone Encounter - Cristy [...] will call that office. Patient in NAD. [facility] [id number] Emergency department Note* Kelly Spangler RN - 08/05/2024 9:57 AM EST Pt came up to this RN stating he wanted to leave and was done waiting. Pt refused to speak with 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.PIV removed. Pt ambulated out of IRP with steady gait. Ashtyn 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 made aware pt left [id number] Emergency department Note* Kelly Spangler RN - 08/05/2024 9:57 AM EST Pt came up to this RN stating he wanted to leave and was done waiting. Pt refused to speak with 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.PIV removed. Pt ambulated out of IRP with steady gait. Ashtyn 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 made aware pt left * THOMAS Pearce [...] HFrEF (heart failure with reduced ejection fraction) ([facility]) 06/13/2024 Acute kidney injury superimposed on CKD ([facility]) ([facility]) 07/03/2024 At risk for obstructive sleep apnea 05/31/2024 o/p sleep study recommended during admission CHF (congestive heart failure) ([facility]) CKD (chronic kidney disease) HFrEF (heart failure with reduced ejection fraction) ([facility]) 04/28/2024 History of left bundle branch block (LBBB) 06/19/2024 Hypercholesteremia Hypertension Noncompliance 06/19/2024 NSTEMI (non-ST elevated myocardial infarction) ([facility]) 07/11/2024 Pulmonary embolism ([facility]) Pulmonary vascular congestion 04/28/2024 Sinus tachycardia 06/19/2024 SURGICAL HISTORY Past Surgical History: Procedure Laterality Date CARDIAC CATHETERIZATION N/A 06/17/2024 Performed by Akilah Diaz MD at [facility] Cardiac Hangar Attendant CURRENT MEDICATIONS Previous Medications APIXABAN (ELIQUIS) 5 [...] 0 min Stress: Stress Concern Present (07/12/2024) [place] [employer] [employer] - Occupational Stress Questionnaire Feeling of Stress : To some extent Social Connections: Moderately Integrated (07/12/2024) Social Connection and Isolation Panel [NHANES] Frequency of Communication with Friends and Family: Twice a week Frequency of Social Gatherings with Friends and Family: Once a week Attends [facility]: 1 to 4 times per year [...] 9:38 PM EST Emergency Department Encounter Location: [facility] EM[facility]Y [facility] Patient: Carlo Medina : 1980 [...] or performed during the hospital encounter of 02/06/25 ECG 12 lead Collection Time: 08/04/24 10:16 PM Result Value Ref Range Heart Rate 108 bpm QRSD Interval 99 ms QT Interval 356 ms QTC Interval 477 ms P [place] 74 degrees QRS [place] -22 degrees T Wave [place] 154 degrees NM Interval 157 ms CBC auto differential Collection [...] 367 ms QTC Interval 499 ms P [place] 57 degrees QRS [place] -49 degrees T Wave [place] 114 degrees NM Interval 140 ms Troponin, High Sensitivity, Serial, [...] display I THOMAS Oconnell CNP am the social and human services assistant of record. Final Impression 1. SCHUYLER (acute [...] Prasad CNP 08/05/24 1015 documented in this [facility]02-05-2025 Physician Emergency department Note* THOMAS Pearce [...] HFrEF (heart failure with reduced ejection fraction) ([facility]) 06/13/2024 Acute kidney injury superimposed on CKD ([facility]) ([facility]) 07/03/2024 At risk for obstructive sleep apnea 05/31/2024 o/p sleep study recommended during admission CHF (congestive heart failure) ([facility]) CKD (chronic kidney disease) HFrEF (heart failure with reduced ejection fraction) ([facility]) 04/28/2024 History of left bundle branch block (LBBB) 06/19/2024 Hypercholesteremia Hypertension Noncompliance 06/19/2024 NSTEMI (non-ST elevated myocardial infarction) ([facility]) 07/11/2024 Pulmonary embolism ([facility]) Pulmonary vascular congestion 04/28/2024 Sinus tachycardia 06/19/2024 SURGICAL HISTORY Past Surgical History: Procedure Laterality Date CARDIAC CATHETERIZATION N/A 06/17/2024 Performed by Akilah Diaz MD at [facility] Cardiac Hangar Attendant CURRENT MEDICATIONS Previous Medications APIXABAN (ELIQUIS) 5 [...] 0 min Stress: Stress Concern Present (07/12/2024) [place] [employer] [employer] - Occupational Stress Questionnaire Feeling of Stress : To some extent Social Connections: Moderately Integrated (07/12/2024) Social Connection and Isolation Panel [NHANES] Frequency of Communication with Friends and Family: Twice a week Frequency of Social Gatherings with Friends and Family: Once a week Attends [facility]: 1 to 4 times per year [...] Medicine Provider THOMAS Pearce CNP 08/05/24 0703 [facility]02-05-2025 Physician Emergency department Note* THOMAS Prasad CNP - 08/04/2024 9:38 PM EST Emergency Department Encounter Location: [facility] EMERGENCY [facility]PT Patient: Carlo Medina : 1980 [...] hypercholesterolemia hypertension noncompliance pulmonary embolism. Patient shellie Vieira. He denies any abdominal discomfort he denies [...] 356 ms QTC Interval 477 ms P [place] 74 degrees QRS [place] -22 degrees T Wave [place] 154 degrees NM Interval 157 ms CBC auto differential Collection [...] 367 ms QTC Interval 499 ms P [place] 57 degrees QRS [place] -49 degrees T Wave [place] 114 degrees NM Interval 140 ms Troponin, High Sensitivity, Serial, [...] display I THOMAS Oconnell CNP am the social and human services assistant of record. Final Impression 1. SCHUYLER (acute kidney injury) (HCC) 2. Shortness of breath 3. Chest pain, unspecified type DISPOSITION Eloped 08/05/2024 10:02:30 AM (Please note that portions of this note may have been completed with a voice recognition program. Efforts were made to edit the dictations but occasionally words are mis-transcribed.) THOMAS Oconnell CNP [employer] THOMAS Prasad CNP 08/05/24 1015 [employer] Phone: [phone] 743-202502-05-2025 Evaluation + Plan note* Assessment & Plan Note - Sergei Astudillo MD - 08/04/2024 1:57 PM ESTAssociated Problem(s): HFrEF (heart failure with reduced ejection fraction) (HCC) NYHA Class 2 ACC/AHA Stage C HFrEF, with LVEF 20% (May 2024 echo) Etiology: NICM (Cath May 2024) Previous Therapies Beta-blockade: Carvedilol 25 mg BID ACEi/ARB/ARNI: Losartan 25 mg daily (did not tolerate Entresto) Aldosterone Antagonist: Boynton 12.5 mg daily + KCl Hydralazine/ISDN: none SGLT2i: none -- address at follow ups Diuretic: Lasix 40 mg BID ICD: TBD CLEARANCE REP: TBD Cardiac Rehab: Offer when stable >6 [...] to stop potassium if in normal range/able [facility] [id number] Miscellaneous Notes* Assessment & Plan Note - Sergei Astudillo MD - 08/04/2024 1:57 PM ESTAssociated Problem(s): HFrEF (heart failure with reduced ejection fraction) ([facility]) NYHA Class 2 ACC/AHA Stage C HFrEF, with LVEF 20% (May 2024 echo) Etiology: NICM (Cath May 2024) Previous Therapies Beta-blockade: Carvedilol 25 mg BID ACEi/ARB/ARNI: Losartan 25 mg daily (did not tolerate Entresto) Aldosterone Antagonist: Boynton 12.5 mg daily + KCl Hydralazine/ISDN: none SGLT2i: none -- address at follow ups Diuretic: Lasix 40 mg BID ICD: TBD CLEARANCE REP: TBD Cardiac Rehab: Offer when stable >6 weeks - Euvolemic on exam, BP better controlled -- taking Kcl - Advised and educated on principles of HFrEF management -- including titration of GDMT to max-tolerated doses - Will increase Losartan to 50 mg daily - Increase Boynton to 25 mg daily -- follow up [...] Unprovoked at that time documented in this [facility]02-05-2025 Evaluation + Plan note* Assessment & Plan Note - Sergei Astudillo MD - 08/04/2024 1:54 PM EST Associated Problem(s): Essential hypertension Better controlled today See #1 GDMT [facility] [id number] Evaluation + Plan note* Assessment & Plan Note - Sergei Astudillo MD - 08/04/2024 1:54 PM ESTAssociated Problem(s): Acute deep vein thrombosis (DVT) of lower extremity (HCC) BL DVT noted on US on 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 Unprovoked at that time [facility] [id number] History of Present illness Narrative* Sergei Astudillo MD - 08/04/2024 10:15 AM EST Images from the original note were not included. [facility] - [address] [address] Dept: [phone] Dept Loc: [phone] Visit type: Established patient Reason for Visit: New Patient (Referred by Dr Myles), Congestive Heart Failure (Echo pending 08/30/24), and Hospital Follow-up (6 admission since Jan 2024) Assessment and Plan 1. HFrEF (heart failure with reduced ejection fraction) ([facility]) Assessment & Plan: NYHA Class 2 ACC/AHA Stage C HFrEF, with LVEF 20% (May 2024 echo) Etiology: NICM (Cath May 2024) Previous Therapies Beta-blockade: Carvedilol 25 mg BID ACEi/ARB/ARNI: Losartan 25 mg daily (did not tolerate Entresto) Aldosterone Antagonist: Boynton 12.5 mg daily + KCl Hydralazine/ISDN: none SGLT2i: none -- address at follow ups Diuretic: Lasix 40 mg BID ICD: TBD CLEARANCE REP: TBD Cardiac Rehab: Offer when stable >6 weeks - Euvolemic on exam, BP better controlled -- taking Kcl - Advised and educated on principles of HFrEF management -- including titration of GDMT to max-tolerated doses - Will increase Losartan to 50 mg daily - Increase Boynton to 25 mg daily -- follow up [...] HFrEF (heart failure with reduced ejection fraction) ([facility]) 06/13/2024 Acute kidney injury superimposed on CKD ([facility]) ([facility]) 07/03/2024 At risk for obstructive sleep apnea 05/31/2024 o/p sleep study recommended during admission CHF (congestive heart failure) ([facility]) CKD (chronic kidney disease) HFrEF (heart failure with reduced ejection fraction) ([facility]) 04/28/2024 History of left bundle branch block (LBBB) 06/19/2024 Hypercholesteremia Hypertension Noncompliance 06/19/2024 NSTEMI (non-ST elevated myocardial infarction) ([facility]) 07/11/2024 Pulmonary embolism ([facility]) Pulmonary vascular congestion 04/28/2024 Sinus tachycardia 06/19/2024 Social History Tobacco Use Smoking status: Never Passive exposure: Never Smokeless tobacco: Never Substance Use Topics Alcohol use: Never Past Surgical History: Procedure Laterality Date CARDIAC CATHETERIZATION N/A 06/17/2024 Performed by Akilah Diaz MD at [facility] Cardiac Hangar Attendant Family History Problem Relation Name Age of [...] of Cardiovascular Disease, Division of Heart Failure [facility] [place] documented in this [facility]02-05-2025 Instructions* Patient Instructions* Sergei Astudillo MD [...] in ~ 2 weeks documented in this [facility]02-04-2025 Telephone encounter Note* Telephone Encounter - Kaitlin Gonzalez LPN - 08/03/2024 9:44 AM EST Unable to contact patient X2 [facility] [id number] Miscellaneous Notes* Telephone Encounter - Kaitlin Gonzalez LPN - 08/03/2024 9:44 AM EST Unable to contact patient X2 * Telephone Encounter - Kaitlin Gonzalez LPN - 08/02/2024 9:55 AM EST S: Patient admitted to: [facility] 07/23/24 B: Discharged on : 07/30/24 A: Hospital follow up call initiated to discuss any medication changes, follow up appointments and discharge instructions: Acute kidney injury R: No contact x 1 at : [phone] documented in this [facility]02-04-2025 Telephone encounter Note* Telephone Encounter - Dia Gaitan RN - 08/03/2024 9:22 AM EST model engine mechanic: Pt's sister, Nanci, returned call. Said better to attempt to call pt in the afternoon as he usually sleeps in. Reminded Nanci of pt's upcoming appt tomorrow with Dr. Astudillo and requested she reinforce importance of attendance. 2: Pt came to [facility] appt. [facility] [id number] Miscellaneous Notes* Telephone Encounter - Dia Gaitan RN - 08/03/2024 9:22 AM EST model engine mechanic: Pt's sister, Nanci, returned call. Said better to attempt to call pt in the afternoon as he usually sleeps in. Reminded Nanci of pt's upcoming appt tomorrow with Dr. Astudillo and requested she reinforce importance of attendance. 2: Pt came to [facility] appt. documented in this [facility]02-03-2025 Telephone encounter Note* Telephone Encounter - Dia Gaitan RN - 08/02/2024 12:03 PM EST model engine mechanic: Noted 2 unsuccessful attempts to contact pt today for follow up phone calls by and healthcare risk control consultant manager. This RN attempted to contact pt [...] left. No further attempts to be made. [facility] [id number] Miscellaneous Notes* Telephone Encounter - Dia Gaitan RN - 08/02/2024 12:03 PM EST model engine mechanic: Noted 2 unsuccessful attempts to contact pt today for follow up phone calls by and healthcare risk control consultant manager. This RN attempted to contact pt [...] attempts to be made. documented in this [facility]02-03-2025 NoteChart reviewed. Attempted to contact patient for transitions post-discharge outreach. No answer, left VM to please return my call. Will follow up again. [facility]02-03-2025 Telephone encounter Note* Telephone Encounter - Kaitlin Gonzalez LPN - 08/02/2024 9:55 AM EST S: Patient admitted to: [facility] 07/23/24 B: Discharged on : 07/30/24 A: Hospital follow up call initiated to discuss any medication changes, follow up appointments and discharge instructions: Acute kidney injury R: No contact x 1 at : [phone] [facility] [id number] History of Present illness Narrative* Maritza Linn, THOMAS - NURSE ADVISOR - 07/30/2024 1:19 PM EST [facility] [...] any questions or concerns. Maritza Linn APRN, NURSE ADVISOR [facility] [employer], [facility] [phone] Cosigned by Anand Mccullough MD at 07/30/2024 1:47 PM EST Associated attestation - Anand Mccullough MD - 07/30/2024 1:47 PM EST I have reviewed the above assessment and plan with the 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. I agree with above note. Cr improving. [...] for 08/06, HF navigator working with patient VERÓNICA who drives to appt to confirm attendance [...] Strong pulses bilaterally. Fawad Galan MD Cardiology [facility]. [facility] [place] 11:34 AM 07/30/24 * Michelle Werner - [...] agreeableto drive him to clinic visits at [facility] for advanced heart failure care and evaluation. She is the only mobile lounge driver as Mr. Medina doesn't drive, and [...] - He is planning to follow-up at [facility] after conversation with him and his girlfriend, Loco, over the phone; she is agreeable to drive him, requests layboy tender visits if possible as she works nights - I have discussed his care with Dr. Coppola at [facility], and we will plan to get him [...] he establish in advanced HF clinic at [facility] with him and his girlfriend, Loco, over [...] Trace edema bilaterally Fawad Galan MD Cardiology [facility]. [facility] [place] 12:25 PM 07/29/24 * Lilibeth Huber APRN - VIKKI - 07/29/2024 6:33 AM EST Hospitalist Progress Note 07/29/2024 Subjective: Admit Date: 07/23/2024 PCP: No primary care provider on file. Room#: B2-268/B2-268 A BRIEF HOSPITAL COURSE: Carlo is a 44 y.o. male with past medical history significant for heart failure with reduced ejection fraction, chronic kidney disease, left bundle branch block, hypertension, noncompliance behavior, history of non-ST elevation MT who presented to the emergency room with [...] HFrEF (heart failure with reduced ejection fraction) ([facility]) 06/13/2024 Acute kidney injury superimposed on CKD ([facility]) ([facility]) 07/03/2024 At risk for obstructive sleep apnea 05/31/2024 o/p sleep study recommended during admission CHF (congestive heart failure) ([facility]) CKD (chronic kidney disease) HFrEF (heart failure with reduced ejection fraction) ([facility]) 04/28/2024 History of left bundle branch block (LBBB) 06/19/2024 Hypercholesteremia Hypertension Noncompliance 06/19/2024 NSTEMI (non-ST elevated myocardial infarction) ([facility]) 07/11/2024 Pulmonary vascular congestion 04/28/2024 Sinus tachycardia 06/19/2024 LABS: CBC: Recent Labs 07/27/24 01007/28/24 0603 07/29/24 0324 WBC 5.7 5.6 5.9 RBC 4.16* 4.33* 3.73* HGB 13.8 14.3 12.5* HCT 42.4 44.8 38.9* MCV 101.9* 103.5* 104.3* RDW 13.3 13.2 13.0 PLT 241 225 202 BMP: Recent Labs 07/27/24 01007/28/24 0603 07/29/24 0324 NA 140 140 136 K 3.6 3.5 3.3* CL 102 99 103 CO2 24 31* 25 BUN 35* 29* 28* CREATININE 1.84* 1.66* 1.36* GLUCOSE 95 97 103* CALCIUM 8.4 8.3* 6.9* ANIONGAP 14* 10 8 LIVER PROFILE: Recent Labs 07/27/24 01007/28/24 0603 07/29/24 0324 AST 31 26 22 [...] Emergency Contact: Indira Medina Mobile Relation: Sister THOMAS Castillo CNP Division of Hospitalist Medicine [facility] * Fawad Galan MD - 07/28/2024 3:31 [...] encouraged that he follow-up in clinic at [facility] for advanced HF given his low EF - Previuosly declined ICD - Will plan to discharge on losartan 25mg; he states he will not be taking the entresto at discharge - Continue apixaban, carvedilol - Plan to resume spironolactone at discharge - Will consider conversatin regarding location of his follow-up care; if he is willing to consider [facility] for follow-ups, I may discuss with HF navigator if a [employer] arranged ride is possible given the possible financial barrier for him (GF is only mobile lounge driver, challenge paying for gas) and his [...] that he should plan to follow-up at [facility], and he indicated his only concern with [...] bilateral lower extremities Fawad Galan MD Cardiology [facility]. [facility] [place] 3:31 PM 07/28/24 * THOMAS Carlos CNP [...] -Complex MDM -High risk for progression to AIRWAYS OPERATIONS SPECIALIST dependence given history of noncompliance -High risk of decompensation with noncompliance with medications/labs. -We will follow closely with you Thank you for the consult and the opportunity to participate in the care of this patient. Please donot hesitate to contact us with any questions or concerns. Maritza Linn APRN, NURSE ADVISOR [facility], [facility] [phone] Cosigned by Anand Mccullough MD at 07/28/2024 4:00 PM EST Associated attestation - Anand Mccullough MD - 07/28/2024 4:00 PM EST I have reviewed the above assessment and plan with the 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. I agree with above note. Cr improving. C/w IV lasix. Replete K pRN. * Maritza Linn APRN - NURSE ADVISOR - 07/27/2024 1:31 PM EST [facility] Progress Note [...] -Complex MDM -High risk for progression to AIRWAYS OPERATIONS SPECIALIST dependence given history of noncompliance -High risk of decompensation with noncompliance with medications/labs. -We will follow closely with you Thank you for the consult and the opportunity to participate in the care of this patient. Please donot hesitate to contact us with any questions or concerns. Maritza Linn APRN, NURSE ADVISOR [facility], [facility] [phone] Cosigned by Anand Mccullough MD at 07/28/2024 3:58 PM EST * Jovanna Christian PA-C - 07/27/2024 12:36 PM EST [facility] [place] [facility] Cardiology /Electrophysiology Progress Note HPI / Interval History: Mr. Carlo Medina, 44 year old male presents to [facility] due to heart failure. He has a history of nonischemic cardiomyopathy with severe biventricular failure, last EF measured 20% per transthoracic echo June 15, 2024. Hx of [facility] heart failure adm due to poor compliance and poor health literacy. He has had extended and multiple discussions about medical Rx. -recently DC from [facility] 07/05, [facility] 07/16, presented to the office 07/21 volume overloaded-in which he admitted he had not been taking most of his meds or diuretics. He has been recommended and has been referred to [facility] heart failure clinic. Recently noted to have increased wt as outpt at [facility] and K+5.8 was subsequently found. He was then readmitted to [facility], and placed on Lasix IV [...] up in our heart failure clinic at [facility]. Dr. Zhang wanted again it reiterated [...] surrogate decision maker is daughter, Journey - patient wanting girlfriend Loco(Kaitlin )to make [...] is a 44 y.o. 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 Herman Symptom Assessment Score Herman Score Pain Score (if non-verbal, add .FLACC [...] note were not included. Spiritual Care Note [facility] Patient Name:Carlo Medina Chief Complaint: Chief Complaint [...] Christian PA-C - 07/26/2024 1:08 PM EST [facility] Cardiology /Electrophysiology Progress Note HPI / Interval History: Mr. Carlo Medina, 44 year old male presents to [facility] due to heart failure. He has a history of nonischemic cardiomyopathy with severe biventricular failure, last EF measured 20% per transthoracic echo June 15, 2024. Hx of [facility] heart failure adm due to poor compliance and poor health literacy. He has had extended and multiple discussions about medical Rx. -recently DC from [facility] 07/05, [facility] 07/16, presented to the office 07/21 volume overloaded-in which he admitted he had not been taking most of his meds or diuretics. He has been recommended and has been referred to [facility] heart failure clinic. Recently noted to have increased wt as outpt at [facility] and K+5.8 was subsequently found. - he continues to be diuresed, IV lasix 80 mg twice daily. He continues to state he does not wish to be transferred to [facility]. States he will consider outpatient follow up in the heart failure clinic at [facility]. We had a lengthy discussion regarding the [...] 2.24* 1.98* 2.19* 2.14* Recent Labs 07/23/24212607/24/24 0607/26/24 0907 WBC 8.8 7.4 5.5 HGB 15.2 14.4 14.1 HCT 46.5 45.0 43.0 MCV 102.2* 103.7* 101.4* PLT 255 225 240 Recent Labs 07/23/24212607/24/24 0607/26/24 0907 BNP 26,294* 20,238* 18,824* No results [...] Electronically Signed On 07-23-2024 21:59:14 EST by Betrha Pichardo Tracing reviewed. Telemetry findings reviewed: SR [...] hypertension, noncompliance behavior, history of non-ST elevation MT who presented to the emergency room with [...] HFrEF (heart failure with reduced ejection fraction) ([facility]) 06/13/2024 Acute kidney injury superimposed on CKD ([facility]) ([facility]) 07/03/2024 At risk for obstructive sleep apnea 05/31/2024 o/p sleep study recommended during admission CHF (congestive heart failure) ([facility]) CKD (chronic kidney disease) HFrEF (heart failure with reduced ejection fraction) ([facility]) 04/28/2024 History of left bundle branch block (LBBB) 06/19/2024 Hypercholesteremia Hypertension Noncompliance 06/19/2024 NSTEMI (non-ST elevated myocardial infarction) ([facility]) 07/11/2024 Pulmonary vascular congestion 04/28/2024 Sinus [...] function/K+ level, spoke aboutHF outpatient clinic at [facility] -Cardiology started Metolazone 5 mg daily -Continue [...] Contact: Indira Medina Mobile Relation: Sister Berenice Soniya THOMAS Rosenthal CNP Division of Hospitalist Medicine [facility] * Angel Luis Lassiter MD - 07/25/2024 [...] weights are notreliable by standing scales at [place]. See weight below: * Morgan Ulloa, SURGICAL ORDERLY - NURSE ADVISOR - 07/25/2024 10:03 AM EST [facility] Cardiology /Electrophysiology Progress Note HPI / Interval History: Mr. Carlo Medina, 44 year old male presents to [facility] due to heart failure. He has a history of nonischemic cardiomyopathy with severe biventricular failure, last EF measured 20% per transthoracic echo June 15, 2024. Hx of [facility] heart failure adm due to poor compliance and poor health literacy. He has had extended and multiple discussions about medical Rx. -recently DC from [facility] 07/05, [facility] 07/16, presented to the office 07/21 volume overloaded-in which he admitted he had not been taking most of his meds or diuretics. He has been recommended and has been referred to [facility] heart failure clinic. Recently noted to have increased wt as outpt at [facility] and K+5.8 was subsequently found. - he continues to be diuresed, IV lasix 80 mg twice daily. He continues to state he does not wish to be transferred to [facility]. States he will consider outpatient follow up in the heart failure clinic at [facility]. We had a lengthy discussion regarding the [...] No primary care provider on file. Room#: [facility]268/[facility] A BRIEF HOSPITAL COURSE: Carlo is a 44 y.o. male with past medical history significant for heart failure with reduced ejection fraction, chronic kidney disease, left bundle branch block, hypertension, noncompliance behavior, history of non-ST elevation MT who presented to the emergency room with [...] HFrEF (heart failure with reduced ejection fraction) ([facility]) 06/13/2024 Acute kidney injury superimposed on CKD ([facility]) ([facility]) 07/03/2024 At risk for obstructive sleep apnea 05/31/2024 o/p sleep study recommended during admission CHF (congestive heart failure) ([facility]) CKD (chronic kidney disease) HFrEF (heart failure with reduced ejection fraction) ([facility]) 04/28/2024 History of left bundle branch block (LBBB) 06/19/2024 Hypercholesteremia Hypertension Noncompliance 06/19/2024 NSTEMI (non-ST elevated myocardial infarction) ([facility]) 07/11/2024 Pulmonary vascular congestion 04/28/2024 Sinus [...] per day,Coreg 25 mg BID, restart Entresto 49/51, close follow up with kidney function/K+ level, spoke aboutHF outpatient clinic at [facility] -Continue monitor daily weight -Monitor renal function [...] THOMAS Munroe CNP Division of Hospitalist Medicine [facility] documented in this encounterSNorwalk Memorial [id number] Nurse Note* Tamiko Live RN - 07/30/2024 [...] list for patient to find a PCP [facility] [id number] Nurse Note* Tamiko Live RN - 07/30/2024 [...] list for patient to find a PCP dr. * Tamiko Live RN - 07/29/2024 10:15 [...] draw is with US. Request made to AIRWAYS OPERATIONS SPECIALIST nurse. * Osiris Huber RN - 07/26/2024 5:19 AM EST Attempted to draw lab but patient refused at this time.informed the provider. * Osiris Huber RN - 07/25/2024 5:00 AM EST Attempted to draw lab but patient is refusing to draw lab.Informed the doctor. documented in this [facility]01-31-2025 Note* Nurse Navigation Note - Dia Gaitan RN - 07/30/2024 12:04 PM EST HF model engine mechanic: Called pt to confirm that appt at 10:15AM on 08/[address] Astudillo is early enough in the day to accommodate pt's girlfriend's work schedule as she works nights. Offered earlier appt options, but pt states 10:15AM will work out great, no need to reschedule. Confirmed pt knows how to get to [facility]. HF action plan updated in AVS with [facility] contact information. If any further assistance needed, use Secure Chat. Will complete HF discharge call on Wednesday 08/02. [facility] [id number] Note* Nurse Navigation Note - Dia Giatan RN - 07/30/2024 12:04 PM EST HF model engine mechanic: Called pt to confirm that appt at 10:15AM on 08/[address] Astudillo is early enough in the day to accommodate pt's girlfriend's work schedule as she works nights. Offered earlier appt options, but pt states 10:15AM will work out great, no need to reschedule. Confirmed pt knows how to get to [facility]. HF action plan updated in AVS with [facility] contact information. If any further assistance needed, use Secure Chat. Will complete HF discharge call on Wednesday 08/02. [facility] [id number] Miscellaneous Notes* Nurse Navigation Note - Dia Gaitan RN - 07/30/2024 12:04 PM EST HF model engine mechanic: Called pt to confirm that appt at 10:15AM on 08/[address] Astudillo is early enough in the day to accommodate pt's girlfriend's work schedule as she works nights. Offered earlier appt options, but pt states 10:15AM will work out great, no need to reschedule. Confirmed pt knows how to get to [facility]. HF action plan updated in AVS with [facility] contact information. If any further assistance needed, use Secure Chat. Will complete HF discharge call on Wednesday 08/02. * Care Coordination - Brittany Alston RN - 07/30/2024 11:28 AM EST Care Management Progress Note Received another call from [employer] Inpatient Drafter [employer] telling me that 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 needs to call back transfer center today at [facility] even if pt gets DCED today and fax demographics. Secure chatted [place] NPand updated that insurance is requesting she call transfer line and to obtain fax where demos can be faxed per MMO request. Obtained [facility] fax number from 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 [phone] and demos faxed as requested. Length of Stay (Days): 2 GMLOS: No GMLOS Documented * Care Coordination - Brittany Alston RN - 07/30/2024 8:58 AM EST Care Management Progress Note Received call from Pauline from O who is pt's Inpatient sales development manager and she informed this TCC that pt's insurance is OON and should be transferred. Informed her per 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 note that 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 tried to transfer last evening and there were no beds available at [facility]. Met pt at bedside and updated him that his insurance told this TCC that [facility] is out of network with his insurance. [...] fall injury Outcome: Progressing Flowsheets (Taken 07/30/2024 0820) Free from fall injury: Instruct family/caregiver on [...] CNP - 07/29/2024 5:11 PM EST Called [facility] transfer line to see about transferring patient to them as he is apparently outof network. Was told that they have a waiting list for beds. Gave [facility] patient information and will call back tomorrow [...] block, hypertension, noncompliance behavior, history ofnon-ST elevation MT who presented to the emergency department with [...] HFrEF (heart failure with reduced ejection fraction) ([facility]) 06/13/2024 Acute kidney injury superimposed on CKD ([facility]) ([facility]) 07/03/2024 At risk for obstructive sleep apnea 05/31/2024 o/p sleep study recommended during admission CHF (congestive heart failure) ([facility]) CKD (chronic kidney disease) HFrEF (heart failure with reduced ejection fraction) ([facility]) 04/28/2024 History of left bundle branch block (LBBB) 06/19/2024 Hypercholesteremia Hypertension Noncompliance 06/19/2024 NSTEMI (non-ST elevated myocardial infarction) ([facility]) 07/11/2024 Pulmonary vascular congestion 04/28/2024 Sinus [...] TTE 05/2024 EF 20% Non ischemic cardiomyopathy [facility]YLER with history of CKD Chronic transaminitis- continue [...] Sister Nicole Cross Division of Hospitalist Medicine [facility] [facility] Cosigned by THOMAS Carlos CNP at 07/28/2024 [...] Chart reviewed. Pt has been admitted to [facility] several times with in the past month. Has a history of non-compliance. Cardiology, nephrology, and palliative following. Receiving IV Lasix. Cr improving at this time. Pt will not qualify for [facility] due to no PCP. Discharge plan will be home when medically ready. human services case manager to follow and assist as needed. * Medical Student - Nicole Cross - 07/27/2024 12:03 PM EST Hospitalist Progress Note 07/27/2024 Subjective: Admit Date: 07/23/2024 PCP: No primary care provider on file. Room#: B2-268/[facility] A BRIEF HOSPITAL COURSE: Carlo is a 44 y.o. male with past medical history of heart failure with reduced ejection fraction, chronic kidney disease, left bundle branch block, hypertension, noncompliance behavior, history ofnon-ST elevation MT who presented to the emergency department with [...] HFrEF (heart failure with reduced ejection fraction) ([facility]) 06/13/2024 Acute kidney injury superimposed on CKD ([facility]) ([facility]) 07/03/2024 At risk for obstructive sleep apnea 05/31/2024 o/p sleep study recommended during admission CHF (congestive heart failure) ([facility]) CKD (chronic kidney disease) HFrEF (heart failure with reduced ejection fraction) ([facility]) 04/28/2024 History of left bundle branch block (LBBB) 06/19/2024 Hypercholesteremia Hypertension Noncompliance 06/19/2024 NSTEMI (non-ST elevated myocardial infarction) ([facility]) 07/11/2024 Pulmonary vascular congestion 04/28/2024 Sinus [...] Sister Nicole Cross Division of Hospitalist Medicine [facility] Cosigned by THOMAS Carlos CNP at 07/28/2024 [...] No primary care provider on file. Room#: B2-039/B2-206 A BRIEF HOSPITAL COURSE: Carlo is a 44 y.o. male with past medical history of heart failure with reduced ejection fraction, chronic kidney disease, left bundle branch block, hypertension, noncompliance behavior, history ofnon-ST elevation MT who presented to the emergency department with [...] HFrEF (heart failure with reduced ejection fraction) ([facility]) 06/13/2024 Acute kidney injury superimposed on CKD ([facility]) ([facility]) 07/03/2024 At risk for obstructive sleep apnea 05/31/2024 o/p sleep study recommended during admission CHF (congestive heart failure) ([facility]) CKD (chronic kidney disease) HFrEF (heart failure with reduced ejection fraction) ([facility]) 04/28/2024 History of left bundle branch block (LBBB) 06/19/2024 Hypercholesteremia Hypertension Noncompliance 06/19/2024 NSTEMI (non-ST elevated myocardial infarction) ([facility]) 07/11/2024 Pulmonary vascular congestion 04/28/2024 Sinus [...] Mobile Relation: Sister Nicole Cross [facility] Cosigned by THOMAS Carlos CNP at 07/28/2024 2:35 PM EST * Nurse Navigation Note - Dia Gaitan RN - 07/26/2024 10:20 AM EST HF model engine mechanic: Chart reviewed. Pt admitted with acute chronic [...] screenings): - S.C. request sent to the Tools Developer Management team to complete serial telephone outreaches to pt with a focus on reinforcing all HF education and importance of HF GDMT and follow up compliance. - Pt with history of refusing transfer from [facility] to [facility] while hospitalized. Recommend confirming pt is agreeable to follow up with [facility]. If unable or pt does not wish to come to [facility], recommend continued follow up at [facility]. Heart Failure Accreditation Quality Metrics All Clinical Practice Guidelines and references available on the [facility] Heart Failure resource page (Resources --> [facility] --> Heart Failure) Established Imaging Tech: Dr. Zhang/Yulissa Ulloa NP Follow up scheduled [...] CKD3 and hyperkalemia (Treatment pathway available on [facility] Heart Failure resource page) LUCRECIA/ARB/ARNI: No (HD Entresto BID on hold) BB: Yes, carvedilol 25mg BID MRA: No SGLT2-I: No Diuretic: Yes- 80mg IV lasix BID (40gm PO lasix daily CORN SHELLER) Hydral/ISDN: N/A CLEARANCE REP-D Appropriateness Screen- N/A- Noncompliant with Lifevest and [...] are monitored and maintained or improved 07/24/2024 1726 by Slime Lange RN [...] Fluid and electrolyte balance are achieved/maintained 07/24/2024 1726 by Slime Lange RN Outcome: [...] Nutrition Goal: Nutritional status is improving 07/24/2024 172 [...] is improving Outcome: Progressing documented in this [facility]01-31-2025 Note* Care Coordination - Brittany Alston RN - 07/30/2024 11:28 AM EST Care Management Progress Note Received another call from [facility] Inpatient Drafter [employer] telling me that 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 needs to call back transfer center today at [facility] even if pt gets DCED today and fax demographics. Secure milagros Seay updated that insurance is requesting she call transfer line and to obtain fax where demos can be faxed per MMO request. Obtained [facility] fax number from 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 [phone] and demos faxed as requested. Length of Stay (Days): 2 GMLOS: No GMLOS Documented [facility] [id number] Note* Care Coordination - Brittany Alston RN - 07/30/2024 11:28 AM EST Care Management Progress Note Received another call from [facility] Inpatient [employer] telling me that 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 needs to call back transfer center today at [facility] even if pt gets DCED today and fax demographics. Secure milagros Seay updated that insurance is requesting she call transfer line and to obtain fax where demos can be faxed per MMO request. Obtained [facility] fax number from 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 [phone] and demos faxed as requested. Length of Stay (Days): 2 GMLOS: No GMLOS Documented [facility] [id number] [facility]01-31-2025 Hospital course Narrative* Lilibeth Anguianos, SURGICAL ORDERLY - NURSE ADVISOR - 07/30/2024 11:05 AM EST Hospitalist Discharge [...] hypertension, noncompliance behavior, history of non-ST elevation MT who presented to the emergency room with [...] HFrEF (heart failure with reduced ejection fraction) ([facility]) 06/13/2024 Acute kidney injury superimposed on CKD ([facility]) ([facility]) 07/03/2024 At risk for obstructive sleep apnea 05/31/2024 o/p sleep study recommended during admission CHF (congestive heart failure) ([facility]) CKD (chronic kidney disease) HFrEF (heart failure with reduced ejection fraction) ([facility]) 04/28/2024 History of left bundle branch block (LBBB) 06/19/2024 Hypercholesteremia Hypertension Noncompliance 06/19/2024 NSTEMI (non-ST elevated myocardial infarction) ([facility]) 07/11/2024 Pulmonary vascular congestion 04/28/2024 Sinus tachycardia 06/19/2024 Procedures: Narrative & Impression [facility] 1980 [id number] Exam Date/Time: 07/23/2024 20:07 Procedure: XR CHEST [...] Complexity: follow up within 7-14 calendar days (54426) [x] Severe Complexity: follow up within 7 calendar days (13370) Follow up Testing, Pending results or Referrals [...] CNP Division of Hospitalist Medicine Acute care solutions 07/30/2024, 11:06 AM Cosigned by Darrell Kohler MD at 07/30/2024 7:16 PM EST documented in this [facility]01-31-2025 Note* Care Coordination - Brittany Alston RN - 07/30/2024 8:58 AM EST Care Management Progress Note Received call from Pauline from [facility] who is pt's Inpatient sales development manager and she informed this TCC that pt's insurance is OON and should be transferred. Informed her per 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 note that 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 tried to transfer last evening and there were no beds available at [facility]. Met pt at bedside and updated him that his insurance told this TCC that [facility] is out of network with his insurance. Pt states he did NOT know this. Pt encouraged to reach out to his insurance for further explanation. Length of Stay (Days): 2 GMLOS: No GMLOS Documented [facility] [id number] Note* Care Coordination - Brittany Alston RN - 07/30/2024 8:58 AM EST Care Management Progress Note Received call from Pauline from [facility] who is pt's Inpatient sales development manager and she informed this TCC that pt's insurance is OON and should be transferred. Informed her per 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 note that 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 tried to transfer last evening and there were no beds available at [facility]. Met pt at bedside and updated him that his insurance told this TCC that [facility] is out of network with his insurance. Pt states he did NOT know this. Pt encouraged to reach out to his insurance for further explanation. Length of Stay (Days): 2 GMLOS: No GMLOS Documented [facility]01-31-2025 Plan of care note* Care Plan - [...] monitored and maintained or improved Outcome: Progressing [facility]01-31-2025 Plan of care note* Care Plan - [...] Goal: Nutritional status is improving Outcome: Progressing [facility] [id number] Note* Significant Event - THOMAS Larson CNP - 07/29/2024 5:11 PM EST Called [facility] transfer line to see about transferring patient to them as he is apparently outof network. Was told that they have a waiting list for beds. Gave [facility] patient information and will call back tomorrow to see where they are with beds. Patient likely will be discharged tomorrow. [facility] [id number] Note* Significant Event - THOMAS Larson CNP - 07/29/2024 5:11 PM EST Called [facility] transfer line to see about transferring patient to them as he is apparently outof network. Was told that they have a waiting list for beds. [facility] and will [facility] tomorrow to see where they are with beds. Patient likely will be discharged tomorrow. [facility]01-30-2025 Plan of care note* Care Plan - [...] plan, medications, and discharge instructions Outcome: Progressing [facility] [id number] Nurse Note* Tamiko Live RN - 07/29/2024 10:15 AM EST Nursing went to give IV Magnesium and patient refused. Notified Lilibeth Anguiano APRN. [facility] [id number] Plan of care note* Care Plan - [...] Goal: Nutritional status is improving Outcome: Progressing [facility] [id number] NoteNon billable note I attest and agree with Nicole Cross 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 Student's assessment, progress note and plan of care for today [facility]01-29-2025 Note* Medical Student - Nicole Cross - 07/28/2024 12:37 PM EST Hospitalist Progress Note 07/28/2024 Subjective: Admit Date: 07/23/2024 PCP: No primary care provider on file. Room#: B2-268/B2-268 A BRIEF HOSPITAL COURSE: Carlo is a 44 y.o. male with past medical history of heart failure with reduced ejection fraction, chronic kidney disease, left bundle branch block, hypertension, noncompliance behavior, history ofnon-ST elevation MT who presented to the emergency department with [...] HFrEF (heart failure with reduced ejection fraction) ([facility]) 06/13/2024 Acute kidney injury superimposed on CKD ([facility]) ([facility]) 07/03/2024 At risk for obstructive sleep apnea 05/31/2024 o/p sleep study recommended during admission CHF (congestive heart failure) ([facility]) CKD (chronic kidney disease) HFrEF (heart failure with reduced ejection fraction) ([facility]) 04/28/2024 History of left bundle branch block (LBBB) 06/19/2024 Hypercholesteremia Hypertension Noncompliance 06/19/2024 NSTEMI (non-ST elevated myocardial infarction) ([facility]) 07/11/2024 Pulmonary vascular congestion 04/28/2024 Sinus [...] Sister Nicole Cross Division of Hospitalist Medicine [facility] Cosigned by THOMAS Carlos CNP at 07/28/2024 2:36 PM EST [facility] [id number] Note* Medical Student - Nicole Cross - 07/28/2024 12:37 PM EST Hospitalist Progress Note 07/28/2024 Subjective: Admit Date: 07/23/2024 PCP: No primary care provider on file. Room#: B2-890/B2-611 A BRIEF HOSPITAL COURSE: Carlo is a 44 y.o. male with past medical history of heart failure with reduced ejection fraction, chronic kidney disease, left bundle branch block, hypertension, noncompliance behavior, history ofnon-ST elevation MT who presented to the emergency department with [...] HFrEF (heart failure with reduced ejection fraction) ([facility]) 06/13/2024 Acute kidney injury superimposed on CKD ([facility]) ([facility]) 07/03/2024 At risk for obstructive sleep apnea 05/31/2024 o/p sleep study recommended during admission CHF (congestive heart failure) ([facility]) CKD (chronic kidney disease) HFrEF (heart failure with reduced ejection fraction) ([facility]) 04/28/2024 History of left bundle branch [...] Nicole Cross Division of Hospitalist Medicine [facility] Cosigned by THOMAS Carlos CNP at 07/28/2024 2:36 PM EST [facility] [id number] Plan of care note* Care Plan - [...] and ventilation is improved Outcome: Progressing [facility] [id number] Plan of care note* Care Plan - [...] Goal: Nutritional status is improving Outcome: Progressing [facility] [id number] Note* Care Coordination - Narcisa Tavarez RN - 07/27/2024 3:32 PM EST Pt admitted for [facility]ER. Chart reviewed. Pt has been admitted to [facility] several times with in the past month. Has a history of non-compliance. Cardiology, nephrology, and palliative following. Receiving IV Lasix. Cr improving at this time. Pt will not qualify for [facility] due to no PCP. Discharge plan will be home when medically ready. human services case manager to follow and assist as needed. [facility] [id number] Note* Care Coordination - Narcisa Tavarez RN - 07/27/2024 3:32 PM EST Pt admitted for SCHUYLER. Chart reviewed. Pt has been admitted to [facility] several times with in the past month. Has a history of non-compliance. Cardiology, nephrology, and palliative following. Receiving IV Lasix. Cr improving at this time. Pt will not qualify for [facility] due to no PCP. Discharge plan will be home when medically ready. human services case manager to follow and assist as needed. [facility] [id number] NoteI attest and agree with Nicole Cross 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 student's progress note, assessment and plan of care for today[facility] Note* Medical Student - Nicole Cross - 07/27/2024 12:03 PM EST Hospitalist Progress Note 07/27/2024 Subjective: Admit Date: 07/23/2024 PCP: No primary care provider on file. Room#: B2-127/B2-746 A BRIEF HOSPITAL COURSE: Carlo is a 44 y.o. male with past medical history of heart failure with reduced ejection fraction, chronic kidney disease, left bundle branch block, hypertension, noncompliance behavior, history ofnon-ST elevation MT who presented to the emergency department with [...] HFrEF (heart failure with reduced ejection fraction) ([facility]) 06/13/2024 Acute kidney injury superimposed on CKD ([facility]) ([facility]) 07/03/2024 At risk for obstructive sleep apnea 05/31/2024 o/p sleep study recommended during admission CHF (congestive heart failure) ([facility]) CKD (chronic kidney disease) HFrEF (heart failure with reduced ejection fraction) ([facility]) 04/28/2024 History of left bundle branch block (LBBB) 06/19/2024 Hypercholesteremia Hypertension Noncompliance 06/19/2024 NSTEMI (non-ST elevated myocardial infarction) ([facility]) 07/11/2024 Pulmonary vascular congestion 04/28/2024 Sinus [...] Contact: Indira Medina Mobile Relation: Sister Nicole Narayanradha Division of Hospitalist Medicine [facility] Cosigned by THOMAS Carlos CNP at 07/28/2024 2:36 PM EST [facility] HospitalJhawwn19-16-2728 Note* Medical Student - Nicole Cross - 07/27/2024 12:03 PM EST Hospitalist Progress Note 07/27/2024 Subjective: Admit Date: 07/23/2024 PCP: No primary care provider on file. Room#: B2-268/B2-268 A BRIEF HOSPITAL COURSE: Carlo is a 44 y.o. male with past medical history of heart failure with reduced ejection fraction, chronic kidney disease, left bundle branch block, hypertension, noncompliance behavior, history ofnon-ST elevation MT who presented to the emergency department with [...] HFrEF (heart failure with reduced ejection fraction) ([facility]) 06/13/2024 Acute kidney injury superimposed on CKD ([facility]) ([facility]) 07/03/2024 At risk for obstructive sleep apnea 05/31/2024 o/p sleep study recommended during admission CHF (congestive heart failure) ([facility]) CKD (chronic kidney disease) HFrEF (heart failure with reduced ejection fraction) ([facility]) 04/28/2024 History of left bundle branch block (LBBB) 06/19/2024 Hypercholesteremia Hypertension Noncompliance 06/19/2024 NSTEMI (non-ST elevated myocardial infarction) ([facility]) 07/11/2024 Pulmonary vascular congestion 04/28/2024 Sinus [...] Na cardiac diet - Nursing to apply lucrceia wrap to bilateral lower extremities daily, and [...] Sister Nicole Cross Division of Hospitalist Medicine [facility] Cosigned by THOMAS Carlos CNP at 07/28/2024 2:36 PM EST [employer] [id number] Plan of care note* Care Plan - [...] and electrolyte balance are achieved/maintained Outcome: Progressing [facility] [id number] Consult note* Anand Mccullough MD - 07/26/2024 5:47 PM EST . [facility] Nephrology Consultation Note Reason for consultation: SCHUYLER on CKD Chief Complaint: Swelling legs and SOB History of Presenting Illness Patient is a 44 y.o. male with past medical history of with past medical history of heart failure with reduced ejection fraction, chronic kidney disease, left bundle branch block, hypertension, noncompliance, history of non-ST elevation MT who presented to the emergency department with complaint ofswelling in the legs and shortness of breath along with abnormal labs. Patient symptoms were going on for couple days CORN SHELLER and had been progressively getting worse. Patient [...] HFrEF (heart failure with reduced ejection fraction) ([facility]) 06/13/2024 Acute kidney injury superimposed on CKD ([facility]) ([facility]) 07/03/2024 At risk for obstructive sleep apnea 05/31/2024 o/p sleep study recommended during admission CHF (congestive heart failure) ([facility]) CKD (chronic kidney disease) HFrEF (heart failure with reduced ejection fraction) ([facility]) 04/28/2024 History of left bundle branch block (LBBB) 06/19/2024 Hypercholesteremia Hypertension Noncompliance 06/19/2024 NSTEMI (non-ST elevated myocardial infarction) ([facility]) 07/11/2024 Pulmonary vascular congestion 04/28/2024 Sinus tachycardia 06/19/2024 Past Surgical History: Procedure Laterality Date CARDIAC CATHETERIZATION N/A 06/17/2024 Performed by Akilah Diaz MD at [facility] Cardiac Hangar Attendant Review of Systems All 12 systems reviewed [...] 0 min Stress: Stress Concern Present (07/12/2024) [place] [employer]ational [employer] - Occupational Stress Questionnaire Feeling of Stress : To some extent Social Connections: Moderately Integrated (07/12/2024) Social Connection and Isolation Panel [NHANES] Frequency of Communication with Friends and Family: Twice a week Frequency of Social Gatherings with Friends and Family: Once a week Attends [employer] [facility]: 1 to 4 times per year [...] -Follow BNP for guided diuresis 26,294-->20,238-->18,824 -No AIRWAYS OPERATIONS SPECIALIST indicated at this time however patient at [...] outlined above. I can be easily reachedvia Package Concierge message SIGNATURE: Anand Mccullough MD PATIENT NAME: Carlo Medina DATE: July 26, 2024 Office [facility] [phone] Technical Machine Work Phone: [phone]) 636-205601-27-2025 Consult note* Anand Mccullough MD - 07/26/2024 5:47 PM EST . [facility] Nephrology Consultation Note Reason for consultation: SCHUYLER on CKD Chief Complaint: Swelling legs and SOB History of Presenting Illness Patient is a 44 y.o. male with past medical history of with past medical history of heart failure with reduced ejection fraction, chronic kidney disease, left bundle branch block, hypertension, noncompliance, history of non-ST elevation MT who presented to the emergency department with complaint ofswelling in the legs and shortness of breath along with abnormal labs. Patient symptoms were going on for couple days CORN SHELLER and had been progressively getting worse. Patient [...] HFrEF (heart failure with reduced ejection fraction) ([facility]) 06/13/2024 Acute kidney injury superimposed on CKD ([facility]) ([facility]) 07/03/2024 At risk for obstructive sleep apnea 05/31/2024 o/p sleep study recommended during admission CHF (congestive heart failure) ([facility]) CKD (chronic kidney disease) HFrEF (heart failure with reduced ejection fraction) ([facility]) 04/28/2024 History of left bundle branch block (LBBB) 06/19/2024 Hypercholesteremia Hypertension Noncompliance 06/19/2024 NSTEMI (non-ST elevated myocardial infarction) ([facility]) 07/11/2024 Pulmonary vascular congestion 04/28/2024 Sinus tachycardia 06/19/2024 Past Surgical History: Procedure Laterality Date CARDIAC CATHETERIZATION N/A 06/17/2024 Performed by Akilah Diaz MD at [facility] Cardiac Hangar Attendant Review of Systems All 12 systems reviewed [...] 0 min Stress: Stress Concern Present (07/12/2024) [place] [employer] - Occupational Stress Questionnaire Feeling of Stress : To some extent Social Connections: Moderately Integrated (07/12/2024) Social Connection and Isolation Panel [NHANES] Frequency of Communication with Friends and Family: Twice a week Frequency of Social Gatherings with Friends and Family: Once a week Attends [employer]: 1 to 4 times per year [...] -Follow BNP for guided diuresis 26,294-->20,238-->18,824 -No AIRWAYS OPERATIONS SPECIALIST indicated at this time however patient at [...] above. I can be easily reachedvia secure CloudX message SIGNATURE: Anand Mccullough MD PATIENT NAME: Carlo Medina DATE: July 26, 2024 Office [facility] [phone] * Chuyita Holloway MD - 07/25/2024 11:27 [...] patient to fill HCPOA document, consulted social media intern for assistance - discussed goals, discussed patient's EF of 20 %, his medical compliance - discussed CPR, Intubation, Vent - patient stated that he feels fine, he wants everything done for him including CPR, intubation, Vent - Code status remains Full Code - will request palliative curing pickling packer for support - discussed with Imaging Tech Dr. 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 Herman Symptom Assessment Score Herman Score Pain Score (if non-verbal, add .FLACC [...] HFrEF (heart failure with reduced ejection fraction) ([facility]) 06/13/2024 Acute kidney injury superimposed on CKD ([facility]) ([facility]) 07/03/2024 At risk for obstructive sleep apnea 05/31/2024 o/p sleep study recommended during admission CHF (congestive heart failure) ([facility]) CKD (chronic kidney disease) HFrEF (heart failure with reduced ejection fraction) ([facility]) 04/28/2024 History of left bundle branch block (LBBB) 06/19/2024 Hypercholesteremia Hypertension Noncompliance 06/19/2024 NSTEMI (non-ST elevated myocardial infarction) ([facility]) 07/11/2024 Pulmonary vascular congestion 04/28/2024 Sinus tachycardia 06/19/2024 Past Surgical History: Procedure Laterality Date CARDIAC CATHETERIZATION N/A 06/17/2024 Performed by Akilah Diaz MD at [facility] Cardiac Hangar Attendant Family History Problem Relation Name Age of [...] AM ESTAssociated Order(s): IP CONSULT TO CARDIOLOGY [facility] Heart & Vascular [place] [facility] Cardiology Consult Note Reason for Consult/Chief Complaint: HF Established bottom precipitator operator: Leatha/Rocky HF specialist History of Present Illness: Carlo Medina is a 44 y.o. male nonischemic cardiomyopathy with severe biventricular failure, lastEF measured 20% per transthoracic echo June 15, 2024. Hx of mult adm due to poor compliance and poor health literacy. He has had extended and multiple discussions about medical Rx. Recently noted to have increased wt as outpt at [facility] and K+5.8 was subsequently found. Prior to that: Was Dc'd 07/05 from [facility]. That note says they tried to keep [...] readm for HF shortly thereafter 07/11 to [facility]. Was Dc'd 07/16 from [facility] w/lasix 20 PRN daily for [...] hospital. Does not want to go back [facility] hospital Seems willing to do [facility] HF clinic when I told him it [...] Anticoagulation: OAC for DVT (mgt per primary) ICD/CLEARANCE REP: Candidate for CLEARANCE REP-D if LBBB became chronic but would need [...] strongly recommended for Adv HF mgt at [facility] HF clinic; this is supported by his [facility] bottom precipitator operator Dr. Zhang. Very high risk for readmission. Appropriate for cardiac rehab if he would attend Noncompliance likely due to multiple factors not all known at this time (medical literacy and social support are issues) contribute to this risk and his poor prognosis skilled nursing. There may be an opportunity for improved [...] be managed here would favor txf to [facility] but pt would likely refuse as he [...] EST by Bertha Pichardo Signed by: Bertha Pihcardo on 07/23/2024 9:59 PM Telemetry findings: Sinus [...] DATE of SERVICE: 07/24/2024 documented in this [facility]01-27-2025 Nurse Note* Raj Chilel RN - 07/26/2024 5:31 PM EST Pt refusing carvedilol and potassium at this time, states he doesn't take meds until 2099. Medication moved to 2099. [facility] [id number] Nurse Note* Raj Chilel RN - 07/26/2024 [...] soda. See I's & O's in flowsheets. [facility] [id number] Note* Medical Student - Nicole Cross - 07/26/2024 1:22 PM EST Hospitalist Progress Note 07/26/2024 Subjective: Admit Date: 07/23/2024 PCP: No primary care provider on file. Room#: B2268/B2-070 A BRIEF HOSPITAL COURSE: Carlo is a 44 y.o. male with past medical history of heart failure with reduced ejection fraction, chronic kidney disease, left bundle branch block, hypertension, noncompliance behavior, history ofnon-ST elevation MT who presented to the emergency department with [...] HFrEF (heart failure with reduced ejection fraction) ([facility]) 06/13/2024 Acute kidney injury superimposed on CKD ([facility]) ([facility]) 07/03/2024 At risk for obstructive sleep apnea 05/31/2024 o/p sleep study recommended during admission CHF (congestive heart failure) ([facility]) CKD (chronic kidney disease) HFrEF (heart failure with reduced ejection fraction) ([facility]) 04/28/2024 History of left bundle branch block (LBBB) 06/19/2024 Hypercholesteremia Hypertension Noncompliance 06/19/2024 NSTEMI (non-ST elevated myocardial infarction) ([facility]) 07/11/2024 Pulmonary vascular congestion 04/28/2024 Sinus [...] Sister Nicole Cross Division of Hospitalist Medicine [facility] Cosigned by Berenice Rosenthal APRN - NURSE ADVISOR at 07/28/2024 2:35 PM EST [facility] [id number] Note* Medical Student - Nicole Cross - 07/26/2024 1:22 PM EST Hospitalist Progress Note 07/26/2024 Subjective: Admit Date: 07/23/2024 PCP: No primary care provider on file. Room#: B2-268/B2-268 A BRIEF HOSPITAL COURSE: Carlo is a 44 y.o. male with past medical history of heart failure with reduced ejection fraction, chronic kidney disease, left bundle branch block, hypertension, noncompliance behavior, history ofnon-ST elevation MT who presented to the emergency department with [...] HFrEF (heart failure with reduced ejection fraction) ([facility]) 06/13/2024 Acute kidney injury superimposed on CKD ([facility]) ([facility]) 07/03/2024 At risk for obstructive sleep apnea 05/31/2024 o/p sleep study recommended during admission CHF (congestive heart failure) ([facility]) CKD (chronic kidney disease) HFrEF (heart failure with reduced ejection fraction) ([facility]) 04/28/2024 History of left bundle branch block (LBBB) 06/19/2024 Hypercholesteremia Hypertension Noncompliance 06/19/2024 NSTEMI (non-ST elevated myocardial infarction) ([facility]) 07/11/2024 Pulmonary vascular congestion 04/28/2024 Sinus [...] Sister Nicole Cross Division of Hospitalist Medicine [facility] Cosigned by THOMAS Carlos CNP at 07/28/2024 2:35 PM EST [facility] [id number] NoteReferral received from CHF coordinator to please follow patient for transitional program to reinforce CHF education and need for follow up. Will monitor patient for discharge home and make outreaches to patient at that time.[facility]-27-[facility] Note* Nurse Navigation Note - Dia Gaitan RN - 07/26/2024 10:20 AM EST HF model engine mechanic: Chart reviewed. Pt admitted with acute chronic [...] screenings): - S.C. request sent to the Tools Developer Management team to complete serial telephone outreaches to pt with a focus on reinforcing all HF education and importance of HF GDMT and follow up compliance. - Pt with history of refusing transfer from [facility] to [facility] while hospitalized. Recommend confirming pt is agreeable to follow up with [facility]. If unable or pt does not wish to come to [facility], recommend continued follow up at [facility]. Heart Failure Accreditation Quality Metrics All Clinical Practice Guidelines and references available on the [facility] Heart Failure resource page (Resources --> [facility] --> Heart Failure) Established Imaging Tech: Dr. Zhang/Yulissa Ulloa NP Follow up scheduled [...] CKD3 and hyperkalemia (Treatment pathway available on [employer] Heart Failure resource page) LUCRECIA/ARB/ARNI: No (HD Entresto BID on hold) BB: Yes, carvedilol 25mg BID MRA: No SGLT2-I: No Diuretic: Yes- 80mg IV lasix BID (40gm PO lasix daily CORN SHELLER) Hydral/ISDN: N/A CLEARANCE REP-D Appropriateness Screen- N/A- Noncompliant with Lifevest and GDMT Cardiac Rehab - Referral could be considered for HFrEF Heart Failure Triggers for Consult to Palliative Care- appropriately following [facility].[id number] Note* Nurse Navigation Note - Dia Gaitan RN - 07/26/2024 10:20 AM EST HF model engine mechanic: Chart reviewed. Pt admitted with acute chronic [...] screenings): - S.C. request sent to the Tools Developer Management team to complete serial telephone outreaches to pt with a focus on reinforcing all HF education and importance of HF GDMT and follow up compliance. - Pt with history of refusing transfer from [facility] to [facility] while hospitalized. Recommend confirming pt is agreeable to follow up with [facility]. If unable or pt does not wish to come to [facility], recommend continued follow up at [facility]. Heart Failure Accreditation Quality Metrics All Clinical Practice Guidelines and references available on the [facility] Heart Failure resource page (Resources --> [facility] --> Heart Failure) Established Imaging Tech: Dr. Zhang/Yulissa Ulloa NP Follow up scheduled [...] CKD3 and hyperkalemia (Treatment pathway available on [facility] Heart Failure resource page) LUCRECIA/ARB/ARNI: No (HD Entresto BID on hold) BB: Yes, carvedilol 25mg BID MRA: No SGLT2-I: No Diuretic: Yes- 80mg IV lasix BID (40gm PO lasix daily CORN SHELLER) Hydral/ISDN: N/A CLEARANCE REP-D Appropriateness Screen- N/A- Noncompliant with Lifevest and GDMT Cardiac Rehab - Referral could be considered for HFrEF Heart Failure Triggers for Consult to Palliative Care- appropriately following [facility] [id number] Hospital Discharge instructions* Discharge Instructions* Dia Gaitan RN - 07/26/2024 9:55 AM EST My Heart Failure Action Plan Use the below chart as a guide for daily symptom monitoring after you obtain your morning weight. My Imaging Tech: You will be new to [facility]'s Heart Failure Clinic on [facility] Dr. Sergei Astudillo [address] [place] [address] [address] [phone] Once established with the heart failure clinic, [...] 5 pounds in a week Call your Imaging Tech!! My Diet Goal: General diet recommendations for [...] treatment plan or diagnosis, please call Dia Gaitan, Heart Failure Navigator at [phone] (Mon-Fri 8AM-4PM) Do not call Dia's number [...] Please call customer service for you [employer] to help establish a Primary Care Physician. * Attachments The following attachments cannot be sent through Care Everywhere. * Controlling Your Blood Pressure Through Lifestyle ([place]oz[place]) documented in this [facility]01-27-2025 NoteCardiology and attending made aware that patient refuses metolazone this AM. Education by this nurse ineffective.[facility]01-27-2025 Nurse Note * Raj Chilel RN - 07/26/2024 9:26 AM EST Cardiology and attending made aware that patient refuses metolazone this AM. Education by this nurse ineffective. [facility] [id number] Plan of care note* Care Plan - [...] Goal: Nutritional status is improving Outcome: Progressing Technical [id number] Nurse Note* Tamiko Live RN - 07/26/2024 7:41 AM EST Patient refusing to let this nurse draw morning labs. Educated the patient on the importance of this process during his hospital stay to monitor his status. The only way he will allow blood draw is with US. Request made to AIRWAYS OPERATIONS SPECIALIST nurse. [facility] Inc.[id number] Nurse Note* Osiris Huber RN - 07/26/2024 5:19 AM EST Attempted to draw lab but patient refused at this time.informed the provider. Technical [id number] Plan of care note* Care Plan - Osiris Huber RN - 07/26/2024 3:54 AM EST Problem: Pain - Adult Goal: Verbalizes/displays adequate comfort level or baseline comfort level Outcome: Progressing Problem: Safety - Adult Goal: Free from fall injury Outcome: Progressing Problem: Chronic Conditions and Co-morbidities Goal: Patient's chronic conditions and co-morbidity symptoms are monitored and maintained or improved Outcome: Progressing [facility] [id number] Consult note* Chuyita Holloway MD - 07/25/2024 [...] surrogate decision maker is daughter, Zena - met with patient this afternoon, introduced self and role - patient stated he lives with his girlfriend Loco, stated had adult daughter of 20 yrs Journey - discussed HCPOA, patient stated he wants his girlfriend to make decisions for him and not his daughter - encouraged patient to fill HCPOA document, consulted social media intern for assistance - discussed goals, discussed patient's EF of 20 %, his medical compliance - discussed CPR, Intubation, Vent - patient stated that he feels fine, he wants everything done for him including CPR, intubation, Vent - Code status remains Full Code - will request palliative curing pickling packer for support - discussed with Imaging Tech Dr. Lassiter - will continue to have [...] medical non compliance who was admitted to [facility] on 07/23/24 with complain of SOB and [...] Work history: not working now, worked at [employer] before [place] status: No [facility] alfredo: Caodaism ROS: See palliative care ROS/ESAS below; All other systems were reviewed and are negative. Herman Symptom Assessment Score Herman Score Pain Score (if non-verbal, add .FLACC [...] HFrEF (heart failure with reduced ejection fraction) ([facility]) 06/13/2024 Acute kidney injury superimposed on CKD ([facility]) ([facility]) 07/03/2024 At risk for obstructive sleep apnea 05/31/2024 o/p sleep study recommended during admission CHF (congestive heart failure) ([facility]) CKD (chronic kidney disease) HFrEF (heart failure with reduced ejection fraction) ([facility]) 04/28/2024 History of left bundle branch block (LBBB) 06/19/2024 Hypercholesteremia Hypertension Noncompliance 06/19/2024 NSTEMI (non-ST elevated myocardial infarction) ([facility]) 07/11/2024 Pulmonary vascular congestion 04/28/2024 Sinus tachycardia 06/19/2024 Past Surgical History: Procedure Laterality Date CARDIAC CATHETERIZATION N/A 06/17/2024 Performed by Akilah Diaz MD at [facility] Cardiac Hangar Attendant Family History Problem Relation Name Age of [...] Transition Note Initiated: yes Chuyita Holloway MD Technical [id number] Nurse Note* Osiris Hbuer RN - 07/25/2024 5:00 AM EST Attempted to draw lab but patient is refusing to draw lab.Informed the doctor. Technical [id number] Plan of care note* Care Plan - Slime Lange RN - 07/24/2024 5:26 PM EST Problem: Pain - Adult Goal: Verbalizes/displays adequate comfort level or baseline comfort level 07/24/20241725 by Slime Lange RN Outcome: Progressing [...] treatment plan, medications, and discharge instructions 07/24/2024 1726 by Slime Lange RN Outcome: Progressing 07/24/2024 1458 by Slime Lange RN Outcome: Progressing Problem: Hemodynamic Status Goal: Patient's vitals signs are stable 07/24/2024 1726 by Slime Lange RN Outcome: Progressing 07/24/2024 1458 by Slime Lange RN Outcome: Progressing Problem: Excessive Fluid Volume Goal: Fluid and electrolyte balance are achieved/maintained 07/24/2024 1726 by Slime Lange RN Outcome: [...] 1458 by Slime Lange RN Outcome: Progressing [facility] [id number] Plan of care note* Care Plan - [...] Goal: Nutritional status is improving Outcome: Progressing [facility] [id number] Consult note* Angel Luis Lassiter MD - 07/24/2024 11:54 AM ESTAssociated Order(s): IP CONSULT TO CARDIOLOGY [facility] Heart & Vascular [facility] Cardiology Consult Note Reason for Consult/Chief Complaint: HF Established bottom precipitator operator: Leatha/Rocky HF specialist History of Present Illness: Carlo Medina is a 44 y.o. male nonischemic cardiomyopathy with severe biventricular failure, lastEF measured 20% per transthoracic echo June 15, 2024. Hx of [facility] adm due to poor compliance and poor health literacy. He has had extended and multiple discussions about medical Rx. Recently noted to have increased wt as outpt at [facility] and K+5.8 was subsequently found. Prior to that: Was Dc'd 07/05 from [facility]. That note says they tried to keep [...] readm for HF shortly thereafter 07/11 to [facility]. Was Dc'd 07/16 from [facility] w/lasix 20 PRN daily for [...] hospital. Does not want to go back [facility] hospital Seems willing to do [facility] HF clinic when I told him it [...] Anticoagulation: OAC for DVT (mgt per primary) ICD/CLEARANCE REP: Candidate for CLEARANCE REP-D if LBBB became chronic but would need to agree to [facility] evaluation as outpt Last CPET: none Last [...] strongly recommended for Adv HF mgt at [facility] HF clinic; this is supported by his [facility] bottom precipitator operator Dr. Zhang. Very high risk for readmission. Appropriate for cardiac rehab if he would attend Noncompliance likely due to multiple factors not all known at this time (medical literacy and social support are issues) contribute to this risk and his poor prognosis skilled nursing. There may be an opportunity for improved [...] be managed here would favor txf to [facility] but pt would likely refuse as he [...] Luis Lassiter MD DATE of SERVICE: 07/24/2024 [facility] [id number] History and physical note* Rafa Samuel MD [...] hypertension, noncompliance behavior, history of non-ST elevation MT who presented to the emergency room with [...] HFrEF (heart failure with reduced ejection fraction) ([facility]) 06/13/2024 Acute kidney injury superimposed on CKD ([facility]) ([facility]) 07/03/2024 At risk for obstructive sleep apnea 05/31/2024 o/p sleep study recommended during admission CHF (congestive heart failure) ([facility]) CKD (chronic kidney disease) HFrEF (heart failure with reduced ejection fraction) ([facility]) 04/28/2024 History of left bundle branch block (LBBB) 06/19/2024 Hypercholesteremia Hypertension Noncompliance 06/19/2024 NSTEMI (non-ST elevated myocardial infarction) ([facility]) 07/11/2024 Pulmonary vascular congestion 04/28/2024 Sinus tachycardia 06/19/2024 Past Surgical History: Past Surgical History: Procedure Laterality Date CARDIAC CATHETERIZATION N/A 06/17/2024 Performed by Akilah Diaz MD at [facility] Cardiac Hangar Attendant Social History: Social History Socioeconomic History Marital [...] 0 min Stress: Stress Concern Present (07/12/2024) [place] of Occupational Health - Occupational Stress Questionnaire Feeling of Stress : To some extent Social Connections: Moderately Integrated (07/12/2024) Social Connection and Isolation Panel [NHANES] Frequency of Communication with Friends and Family: Twice a week Frequency of Social Gatherings with Friends and Family: Once a week Attends [facility] Services: 1 to 4 times per year [...] - DO NOT do CPR, intubation] [_] [DNR-ASSEMBLY LEAD PERSON - Comfort care only] [_] DNR form [...] Samuel MD Division of Hospitalist Medicine [facility] Be Spotted Phone: [phone] [facility]01-24-2025 History and physical note* Rafa Samuel MD [...] hypertension, noncompliance behavior, history of non-ST elevation MT who presented to the emergency room with [...] HFrEF (heart failure with reduced ejection fraction) ([facility]) 06/13/2024 Acute kidney injury superimposed on CKD ([facility]) ([facility]) 07/03/2024 At risk for obstructive sleep apnea 05/31/2024 o/p sleep study recommended during admission CHF (congestive heart failure) ([facility]) CKD (chronic kidney disease) HFrEF (heart failure with reduced ejection fraction) ([facility]) 04/28/2024 History of left bundle branch block (LBBB) 06/19/2024 Hypercholesteremia Hypertension Noncompliance 06/19/2024 NSTEMI (non-ST elevated myocardial infarction) ([facility]) 07/11/2024 Pulmonary vascular congestion 04/28/2024 Sinus tachycardia 06/19/2024 Past Surgical History: Past Surgical History: Procedure Laterality Date CARDIAC CATHETERIZATION N/A 06/17/2024 Performed by Akilah Diaz MD at [facility] Cardiac Hangar Attendant Social History: Social History Socioeconomic History Marital [...] 0 min Stress: Stress Concern Present (07/12/2024) [place] [facility] Occupational Health - Occupational Stress Questionnaire Feeling of Stress : To some extent Social Connections: Moderately Integrated (07/12/2024) Social Connection and Isolation Panel [NHANES] Frequency of Communication with Friends and Family: Twice a week Frequency of Social Gatherings with Friends and Family: Once a week Attends [facility] Services: 1 to 4 times per year [...] - DO NOT do CPR, intubation] [_] [DNR-ASSEMBLY LEAD PERSON - Comfort care only] [_] DNR form [...] Samuel MD Division of Hospitalist Medicine [facility] documented in this [facility]01-24-2025 Emergency department Note* Shabana Colbert RN - 07/23/2024 8:04 PM EST compressor technician called. [facility] [id number] Emergency department Note* Shabana Colbert RN - 07/23/2024 8:04 PM EST compressor technician called. * Bertha Pichardo DO - 07/23/2024 7:57 PM EST Emergency Department Encounter [facility] ED Patient: Carlo Medina : [...] 07/23/2024 7:57 PM EST Emergency Department Encounter [facility] ED Patient: Carlo Medina : [...] states that he hadlabs drawn at his bottom precipitator operator the other day, and was told [...] He had a call today from his bottom precipitator operator that his kidney labs were elevated, [...] HFrEF (heart failure with reduced ejection fraction) ([facility]) 06/13/2024 Acute kidney injury superimposed on CKD ([facility]) ([facility]) 07/03/2024 At risk for obstructive sleep apnea 05/31/2024 o/p sleep study recommended during admission CHF (congestive heart failure) ([facility]) CKD (chronic kidney disease) HFrEF (heart failure with reduced ejection fraction) ([facility]) 04/28/2024 History of left bundle branch block (LBBB) 06/19/2024 Hypercholesteremia Hypertension Noncompliance 06/19/2024 NSTEMI (non-ST elevated myocardial infarction) ([facility]) 07/11/2024 Pulmonary vascular congestion 04/28/2024 Sinus tachycardia 06/19/2024 Past Surgical History: Procedure Laterality Date CARDIAC CATHETERIZATION N/A 06/17/2024 Performed by Akilah Diaz MD at [facility] Cardiac Hangar Attendant Social History Socioeconomic History Marital status: Single [...] 0 min Stress: Stress Concern Present (07/12/2024) [place] [facility] Occupational [facility] - Occupational Stress Questionnaire Feeling of Stress : To some extent Social Connections: Moderately Integrated (07/12/2024) Social Connection and Isolation Panel [NHANES] Frequency of Communication with Friends and Family: Twice a week Frequency of Social Gatherings with Friends and Family: Once a week Attends [facility] Services: 1 to 4 times per year [...] Department Physician in the absence of a bottom precipitator operator. Please see Epiphany for interpretation of [...] adequate and appropriateinformation was provided to Carlo Stevo to assist them in choosing a course [...] reports hx of CHF. documented in this [facility]01-24-2025 Emergency department Triage note* Shabana Colbert RN - 07/23/2024 7:57 PM EST Pt arrived through triage with c/o SOB and abdominal pain. Pt also c/o chest burning sensation whenwalking. Pt states his PCP said his kidney levels were elevated and recommended coming to the ER. Pt reports nausea and having increased swelling in his legs. Pt reports hx of CHF. [facility] [id number] Physician Emergency department Note* Bertha Pichardo DO - 07/23/2024 7:57 PM EST Emergency Department Encounter [facility] ED Patient: Carlo Medina : [...] for clarification.) Bertha Pichardo DO Acute Care [facility] Bertha Pichardo DO 07/23/242203 [facility] [id number] Physician Emergency department Note* Dayna Alvarenga PA-C - 07/23/2024 7:57 PM EST Emergency Department Encounter [facility] ED Patient: Carlo Medina : [...] states that he hadlabs drawn at his bottom precipitator operator the other day, and was told [...] He had a call today from his bottom precipitator operator that his kidney labs were elevated, [...] HFrEF (heart failure with reduced ejection fraction) ([facility]) 06/13/2024 Acute kidney injury superimposed on CKD ([facility]) ([facility]) 07/03/2024 At risk for obstructive sleep apnea 05/31/2024 o/p sleep study recommended during admission CHF (congestive heart failure) ([facility]) CKD (chronic kidney disease) HFrEF (heart failure with reduced ejection fraction) ([facility]) 04/28/2024 History of left bundle branch block (LBBB) 06/19/2024 Hypercholesteremia Hypertension Noncompliance 06/19/2024 NSTEMI (non-ST elevated myocardial infarction) ([facility]) 07/11/2024 Pulmonary vascular congestion 04/28/2024 Sinus tachycardia 06/19/2024 Past Surgical History: Procedure Laterality Date CARDIAC CATHETERIZATION N/A 06/17/2024 Performed by Akilah Diaz MD at [facility] Cardiac Hangar Attendant Social History Socioeconomic History Marital status: Single [...] 0 min Stress: Stress Concern Present (07/12/2024) [place] [facility] [employer] [facility] - Occupational Stress Questionnaire Feeling of Stress : To some extent Social Connections: Moderately Integrated (07/12/2024) Social Connection and Isolation Panel [NHANES] Frequency of Communication with Friends and Family: Twice a week Frequency of Social Gatherings with Friends and Family: Once a week Attends [employer]: 1 to 4 times per year [...] Department Physician in the absence of a bottom precipitator operator. Please see Epiphany for interpretation of [...] from hospitalization for diuresis. Was admitted to [facility] in stable condition Carlo Medina and myself [...] Pichardo DO at 07/23/2024 10:40 PM EST [facility] [id number] Telephone encounter Note* Telephone Encounter - Morgan Ulloa APRN - NURSE ADVISOR - 07/23/2024 12:20 PM EST Pt is now scheduled to be seen in the [facility] CHF clinic next week 07/28/2024 at 9:30 am. I left another message asking that he hold Entresto until seen in the CHF clinic and continue lasix. [facility] [id number] Miscellaneous Notes* Telephone Encounter - THOMAS Mi CNP - 07/23/2024 12:20 PM EST Pt is now scheduled to be seen in the [facility] CHF clinic next week 07/28/2024 at 9:30 [...] heart failure clinic at [facility]. [facility], due to ongoing complexity of his care. Would recommend an expedient follow-up scheduled at the heart failure clinic at [facility], if unable to schedule, if patient calls back and is feeling poorly, would recommend he proceed to the emergency room at [facility] for expedient evaluation and treatment. documented in this encounterSNorwalk Memorial HospitalThffxp74-46-6738 Telephone encounter Note* Telephone Encounter - Sarah Pierre - 07/23/2024 10:17 AM EST LM for pt that they are seeing Dr Astudillo on 07/28/2024 @ 9:30a [facility] HospitalNagxsu35-44-6192 Miscellaneous Notes* Telephone Encounter - Sarah Pierre - 07/23/2024 10:17 AM EST LM for pt that they are seeing Dr Astudillo on 07/28/2024 @ 9:30a * Telephone Encounter - Kaitlin Parker - 07/23/2024 10:01 AM EST Patient will need scheduled for a Follow up with heart failure clinic [facility] per Yulissa. Please call patient to schedule. documented in this [facility]01-24-2025 Telephone encounter Note* Telephone Encounter - Kaitlin Parker - 07/23/2024 10:01 AM EST Patient will need scheduled for a Follow up with heart failure clinic [facility] per Yulissa. Please call patient to schedule. [facility] [id number] Telephone encounter Note* Telephone Encounter - Morgan Ulloa APRN - NURSE ADVISOR - 07/23/2024 9:52 AM EST I left [...] heart failure clinic at [facility]. It is [place], due to ongoing complexity of his care. Would recommend an expedient follow-up scheduled at the heart failure clinic at [facility], if unable to schedule, if patient calls back and is feeling poorly, would recommend he proceed to the emergency room at [facility] for expedient evaluation and treatment. [facility] [id number] History of Present illness Narrative* THOMAS Mi CNP - 07/21/2024 9:30 AM EST Images from the original note were not included. [facility] Cardiology Office Note DATE of SERVICE: [...] for volume overload, he was admitted to [facility] 07/11/2024-07/16/2024. He was treated for [...] 06/17/2024 Performed by Akilah Diaz MD at [facility] Cardiac Hangar Attendant Family History Family History Problem Relation Name [...] Rfl: 11 cholecalciferol (Vitamin D-3) 50 MCG (1999 [place]) [...] 1. Heart failure reduced EF, nonischemic cardiomyopathy, [place] Heart Association functional class III, stage C-appears [...] week. Morgan Ulloa APRN/VIKKI documented in this [facility]01-21-2025 Telephone encounter Note* Telephone Encounter - Kaitlin Gonzalez LPN - 07/20/2024 10:02 AM EST Unable to contact patient X2 [facility] [id number] Miscellaneous Notes* Telephone Encounter - Kaitlin Gonzalez LPN - 07/20/2024 10:02 AM EST Unable to contact patient X2 * Telephone Encounter - Kaitlin Gonzalez LPN - 07/19/2024 10:46 AM EST S: Patient admitted to: [facility] 07/11/24 B: Discharged on : 07/16/24 A: Hospital follow up call initiated to discuss any medication changes, follow up appointments and discharge instructions: NSTEMI (non-ST elevated myocardial infarction) R: No contact x 1 at : [phone] documented in this encounterSNorwalk Memorial HospitalIwwool47-04-8010 Telephone encounter Note* Telephone Encounter - Kaitlin Gonzalez LPN - 07/19/2024 10:46 AM EST S: Patient admitted to: [facility] 07/11/24 B: Discharged on : 07/16/24 A: Hospital follow up call initiated to discuss any medication changes, follow up appointments and discharge instructions: NSTEMI (non-ST elevated myocardial infarction) R: No contact x 1 at : [phone] [facility] HospitalRrbnqk79-80-9695 Telephone encounter Note* Telephone Encounter - Luma Joy APRN - VIKKI - 07/16/2024 5:04 PM EST Late chart note. Patient already discharged from the hospital. I have seen him throughout his stay at [facility] this week. It has been a [...] times throughout his stay to re-educate him. [facility] Work Phone: [phone] 610-782001-17-2025 Miscellaneous Notes* Telephone Encounter - THOMAS Valencia CNP - 07/16/2024 5:04 PM EST Late chart note. Patient already discharged from the hospital. I have seen him throughout his stay at [facility] this week. It has been a [...] stay to re-educate him. documented in this encounterSNorwalk Memorial HospitalAlhcno93-30-1500 [facility] 07-16-2024 Hospital course Narrative* THOMAS Larson CNP - 07/16/2024 2:12 PM EST Hospitalist Discharge Summary Carlo Medina : 1980 Admit date: 07/11/2024 Discharge date: 07/16/2024 Admitting Physician: Rafa Smauel MD Primary Care Physician: No primary care [...] of heart failure was recently discharged from [facility] after presenting with similar symptoms. The patient was initiallytreated in the emergency room for a non-STEMI MT secondary to elevated troponins and was placed [...] having symptomatic VT and recommended transfer to [facility] for EP evaluation and ICD. Pt is [...] with sustained BT, cardiology recommnending transfer to [facility] but patient refusing , optimized on medications [...] Course: Patient recommended to be transferred to [facility] for possible ICD placement after symptomatic runs [...] Sodium restriction: Low Sodium (2 gm) 07/12/24 0452 Activity: as tolerated Recommended Outpatient Tests: Disposition: [...] losartan 50 MG tablet Commonly known as: Pj Where to Get Your Medications These medications were sent to [facility] [address] [facility] [address] Hours: Friday to Friday 10 am to 6 pm apixaban 5 MG tablet carvedilol 25 MG tablet furosemide 20 MG tablet sacubitril-valsartan 97-103 MG tablet spironolactone 25 MG tablet Recommended Follow-up: THOMAS Mi CNP [address], [address] [facility] [address] Follow up on 07/23/2024 cardiology follow up @ 2:30. Please get your lab work completed the day prior to this visit. Complexity of Follow up: [] Moderate Complexity: follow up within 7-14 calendar days (28206) [x] Severe Complexity: follow up within 7 calendar days (51675) Follow up Testing, Pending results or Referrals [...] THOMAS Castillo CNP Division of Hospitalist Medicine [facility] 07/16/2024, 2:12 PM Cosigned by Shelli Luis MD at 07/16/2024 5:12 PM EST documented in this [facility]01-17-2025 History of Present illness Narrative* THOMAS [...] at 07/16/2024 0838 Last data filed at 07/15/20249 Gross per 24 hour Intake 200 ml [...] suppress the extra beats/arrhythmia. -He works at [employer]. Advised to check into needing FMLA forms [...] of heart failure was recently discharged from [facility] after presenting with similar symptoms. The patient was initiallytreated in the emergency room for a non-STEMI MT secondary to elevated troponins and was placed [...] having symptomatic VT and recommended transfer to [facility] for EP evaluation and ICD. Pt is reluctant to proceed and feelswe are rushing him. Pt brought up life vest and explained that would only be a temporary treatment.PT was made aware of his high risk for SCD. Interval History: No overnight issues. Patient has decided he will go home with a life vest. He refuses transfer to [facility] see EP for ICD placement. Cardiology has [...] 9 10 4 LIVER PROFILE: Recent Labs 07/14/24 0451 AST 50* ALT 109* BILITOT 1.3* ALKPHOS [...] with sustained BT, cardiology recommnending transfer to [facility] but patient refusing Elevated troponin - Type [...] VT but refuses to be transferred to [facility] - am labs, replace lytes prn - [...] CNP Division of Hospitalist Medicine Acute care [facility] * THOMAS Valencia CNP - [...] Oral, BID carvedilol, 3.125 mg, Oral, BID cholecalciferol, 4,000 Units, Oral, [...] Mg is 2. -I recommend transfer to [facility] for ICD evaluation. I discussed/reviewed telemetry rhythm with EP colleague and we agree with further evaluation/ICD consideration. I explained and discussed findings andrecommendation with Mr. Medina at length. He informed me that he favors not to go to [facility] and he is reluctant about a defibrillator. [...] FACC, FASE * Kelly Carey APRN - NURSE ADVISOR - 07/14/2024 9:11 AM EST Hospitalist Progress [...] of heart failure was recently discharged from [facility] after presenting with similar symptoms. The patient was initiallytreated in the emergency room for a non-STEMI MT secondary to elevated troponins and was placed [...] having symptomatic VT and recommended transfer to [facility] for EP evaluation and ICD. Pt is [...] LABS: CBC: Recent Labs 07/11/24202407/12/24 0637 07/13/24 025 WBC 8.4 8.2 6.6 RBC [...] they discussed with the patient transferring to [facility] for advanced heart failure reevaluation and EP [...] CNP Division of Hospitalist Medicine Acute care [facility] Comment: Please note this report has [...] of heart failure was recently discharged from [facility] after presenting with similar symptoms. The patient was initiallytreated in the emergency room for a non-STEMI MT secondary to elevated troponins and was placed [...] they discussed with the patient transferring to [facility] for advanced heart failure reevaluation but patient [...] THOMAS Edward CNP Division of Hospitalist Medicine [facility] Comment: Please note this report has been [...] be monitored and followed by the diet furniture technician. * THOMAS Cruz CNP - 07/12/2024 [...] of heart failure was recently discharged from [facility] after presenting with similar symptoms. The patient was initiallytreated in the emergency room for a non-STEMI MT secondary to elevated troponins and was placed [...] History: Diagnosis Date CHF (congestive heart failure) ([facility]) CKD (chronic kidney disease) Hypercholesteremia Hypertension LABS: [...] they discussed with the patient transferring to [facility] for advanced heart failure reevaluation but patient [...] THOMAS Edward CNP Division of Hospitalist Medicine [facility] Comment: Please note this report has been produced using speech recognition software and may contain errors related to that system including errors in grammar, punctuation, and spelling, as well as words and phrases that may be inappropriate. If there is any questions or concerns please feel free to contact the dictating provider for clarification documented in this [facility]01-16-2025 Plan of care note* Care Plan [...] Goal: Nutritional status is improving Outcome: Progressing [facility] HospitalGjjbfp93-02-5663 Miscellaneous Notes* Care Plan - Sue Schuler [...] following. Pt has refusing to go to [facility] for advanced heart failure reevaluation. Refused life vest with last admission, and is reluctant about a defibrillator. Discharge plan will be home when medically ready. human services case manager to follow and assist as needed. [...] recommend medication as well as referral to [facility] for defibrillator placement. At first he [...] Acosta RN - 07/14/2024 5:08 AM EST AIRWAYS OPERATIONS SPECIALIST called for pt in ventricular tachycardia in [...] discharge instructions Outcome: Progressing documented in this [facility]01-16-2025 Plan of care note* Care Plan [...] Goal: Nutritional status is improving Outcome: Progressing [facility]01-16-2025 Plan of care note* Care Plan [...] Goal: Nutritional status is improving Outcome: Progressing [facility]01-15-2025 Note* Care Coordination - Narcisa Tavarez RN - 07/14/2024 4:27 PM EST Pt admitted to [facility] for NSTEMI. Chart reviewed. Cardiology following. Pt has refusing to go to [facility] for advanced heart failure reevaluation. Refused life vest with last admission, and is reluctant about a defibrillator. Discharge plan will be home when medically ready. human services case manager to follow and assist as needed. [place] [address]-15-2025 Note* Care Coordination - Narcisa Tavarez RN - 07/14/2024 4:27 PM EST Pt admitted to [facility] for NSTEMI. Chart reviewed. Cardiology following. Pt has refusing to go to [facility] for advanced heart failure reevaluation. Refused life vest with last admission, and is reluctant about a defibrillator. Discharge plan will be home when medically ready. human services case manager to follow and assist as needed. [facility] [id number] NoteAtrial tachycardia Abnormal R-wave progression, late transition Probable LVH with secondary repol abnrm Prolonged QT interval Electronically Signed On 07-14-2024 09:33:32 EST by Radha [facility]ikhAD[facility]HE[facility] 07-14-2024 NoteAtrial tachycardia Abnormal R-wave progression, late transition Probable LVH with secondary repol abnrm Prolonged QT interval Electronically Signed On 07-14-2024 09:33:32 EST by Radhanii ParikhADVENTHEALTH [facility] 07-14-2024 NoteIMPRESSION: Atrial tachycardia Abnormal R-wave progression, late transition Probable LVH with secondary repol abnrm Prolonged QT interval Electronically Signed On 07-14-2024 09:33:32 EST by [facility]-15-20[facility] Note* Significant Event - Sherri Jeter MD [...] recommend medication as well as referral to [facility] for defibrillator placement. At first he [...] his LFTs were elevated in the past [employer] Phone: [phone] 597-449201-15-2025 Note* Significant Event - Sherri Jeter MD [...] recommend medication as well as referral to [facility] for defibrillator placement. At first he [...] his LFTs were elevated in the past [employer] Phone: [phone] 304-621201-15-2025 Note* Rapid Response Note - Inga Acosta RN - 07/14/2024 5:08 AM EST AIRWAYS OPERATIONS SPECIALIST called for pt in ventricular tachycardia in [...] Continue monitoring at current level of care Technical [id number] Note* Rapid Response Note - Inga Acosta RN - 07/14/2024 5:08 AM EST AIRWAYS OPERATIONS SPECIALIST called for pt in ventricular tachycardia in [...] Continue monitoring at current level of care [facility] Technical MachineAvmqja12-50-7536 Plan of care note* Care Plan - Leatha Lancaster RN - 07/14/2024 4:06 AM EST Problem: Knowledge Deficit Goal: Patient/family/caregiver demonstrates understanding of disease process, treatment plan, medications, and discharge instructions Outcome: Not Progressing Problem: Knowledge Deficit Goal: Patient/family/caregiver demonstrates understanding of disease process, treatment plan, medications, and discharge instructions Outcome: Not Progressing [facility] [id number] Nurse Note* Leatha Lancaster RN - 07/13/2024 10:38 PM EST 11 beat wide complex beats-denied symptoms to this RN. Dr Jeter spoke at length to pt re: health risks with refusing intervention. [facility] HospitalQjnjfd25-69-4972 Nurse Note* Leatha Lancaster RN - 07/13/2024 10:38 PM EST 11 beat wide complex beats-denied symptoms to this RN. Dr Jeter spoke at length to pt re: health risks with refusing intervention. * Kira Santos RN - 07/12/2024 12:44 PM EST Patient does not want to take his sodium bicarb until 2pm. documented in this [facility]01-14-2025 Note* Significant Event - Sherri Jeter MD - 07/13/2024 9:55 PM EST He developed sinus tach on tele EKG obtained 5mg of lopressor ordered He then spontaneously went back to normal rhythm before being given. He did have fluttering in his chest, all symptoms now resolved EKG of sinus tach is in epic [facility] HospitalFeqzer31-14-5285 Note* Significant Event - Sherri Jeter MD - 07/13/2024 9:55 PM EST He developed sinus tach on tele EKG obtained 5mg of lopressor ordered He then spontaneously went back to normal rhythm before being given. He did have fluttering in his chest, all symptoms now resolved EKG of sinus tach is in epic [facility] HospitalPpjrvo02-24-4752 Hospital Discharge instructions* Discharge Instructions* Dia Gaitan RN - 07/13/2024 9:40 AM EST My Heart Failure Action Plan Use the below chart as a guide for daily symptom monitoring after you obtain your morning weight. My Imaging Tech: [facility] Cardiology- [place] office [phone] My Diagnosis: Severe biventricular heart failure (both [...] 5 pounds in a week Call your Imaging Tech!! My Diet Goal: General diet recommendations for [...] Everywhere. * Diastolic Heart Failure Discharge Instructions ([place]) documented in this [facility]01-13-2025 Plan of care note* Care Plan [...] plan, medications, and discharge instructions Outcome: Progressing [facility] HospitalIucwut33-10-4837 Nurse Note* Kira Santos RN - 07/12/2024 12:44 PM EST Patient does not want to take his sodium bicarb until 2pm. [facility] HospitalDggvmk91-02-3139 Consult note* Shannan Lima MD - 07/12/2024 9:37 AM EST Associated Order(s): IP CONSULT TO CARDIOLOGY [facility] [place] [facility] Consult Note Reason for Consult/Chief Complaint: Heart Failure Consulting MD: Dr. Samuel History of Present Illness: Carlo Medina is a 44 y.o. male admitted for heart failure. He is known to have HFrEF secondary todilated-nonischemic cardiomyopathy (BiV failure, LVEF 20%, GLS <-9%, 2+ FMR), recently discharged from [facility] for ADHF (losartan 50/lasix 40 mg daily), [...] 06/17/2024 Performed by Akilah Diaz MD at [facility] Cardiac Hangar Attendant Family History: Family History Problem Relation Name [...] 5 mg bid Discussed possible need to [facility] transfer for advanced HF re-evaluation, he does not want to be transferred to [facility] at this time and agrees with above plan. Shannan Lima MD, [facility] DATE of SERVICE: 07/12/2024 [facility] [id number] Consult note* Shannan Lima MD - 07/12/2024 9:37 AM EST Associated Order(s): IP CONSULT TO CARDIOLOGY [facility] [place] [facility] Consult Note Reason for Consult/Chief Complaint: Heart Failure Consulting MD: Dr. Samuel History of Present Illness: Carlo Medina is a 44 y.o. male admitted for heart failure. He is known to have HFrEF secondary todilated-nonischemic cardiomyopathy (BiV failure, LVEF 20%, GLS <-9%, 2+ FMR), recently discharged from [facility] for ADHF (losartan 50/lasix 40 mg daily), [...] 06/17/2024 Performed by Akilah Diaz MD at [facility] Cardiac Hangar Attendant Family History: Family History Problem Relation Name [...] Intake/Output Summary (Last 24 hours) at 07/12/2024 0934 Last data filed at 07/12/2024 0515 Gross [...] 5 mg bid Discussed possible need to [facility] transfer for advanced HF re-evaluation, he does not want to be transferred to [facility] at this time and agrees with above plan. Shannan Lima MD, [facility] DATE of SERVICE: 07/12/2024 documented in this [facility]01-13-2025 Emergency department Note* Celestino Garay RN - 07/12/2024 1:13 AM EST APTT drawn by venipuncture, previous specimen also drawn by venipuncture [facility] [id number] Emergency department Note* Celestino Garay RN - 07/12/2024 1:13 AM EST APTT drawn by venipuncture, previous specimen also drawn by venipuncture * Yasmeen Petersen RN - 07/11/2024 7:22 PM EST AIRWAYS OPERATIONS SPECIALIST RN called for USIV * Donaldo Kenny MD - 07/11/2024 5:20 PM EST Emergency Department Encounter [facility] ED Patient: Carlo Medina : [...] provider for clarification.) Rayna Kenny MD Acute [facility] Donaldo Kenny MD 07/11/242036 * Lorie Nguyen RN - 07/11/2024 5:20 PM EST Patient arrives to er with complaints of upper abd pain. States he was here last week and had to get diuretics, he had fluid retention. Endorses similar sx and increased weight. Pt weight Friday was 170lbs, today 174lbs. Denies any SOB documented in this [facility]01-12-2025 History and physical note* Rafa Samuel MD - 07/11/2024 9:54 PM EST Attending History and Physical Admit Date: 07/11/2024 PCP: No primary care provider on file. CHIEF COMPLAINT: Shortness of breath Reason for Admission: Non-ST elevation MT History Obtained From: patient HISTORY OF PRESENT [...] 06/17/2024 Performed by Akilah Diaz MD at [facility] Cardiac Hangar Attendant Social History: Social History Socioeconomic History Marital [...] 10 min Stress: Stress Concern Present (07/04/2024) [place] [facility] [employer] [facility] - Occupational Stress Questionnaire Feeling of Stress : To some extent Social Connections: Unknown (07/04/2024) Social Connection and Isolation Panel [NHANES] Frequency of Communication with Friends and Family: Once a week Frequency of Social Gatherings with Friends and Family: Once a week Attends [employer]: 1 to 4 times per year [...] weight-based heparin with concern for non-ST elevation MT which will becontinued. Will hold off on [...] Extended Emergency Contact Information Primary Emergency Contact: StevoIndira Mobile Relation: Sister Secondary Emergency Contact: Kaitlin [...] - DO NOT do CPR, intubation] [_] [DNR-ASSEMBLY LEAD PERSON - Comfort care only] [_] DNR form [...] Samuel MD Division of Hospitalist Medicine [facility] [employer] Work Phone: [phone] [facility]01-12-2025 History and physical note* Rafa Samuel MD - 07/11/2024 9:54 PM EST Attending History and Physical Admit Date: 07/11/2024 PCP: No primary care provider on file. CHIEF COMPLAINT: Shortness of breath Reason for Admission: Non-ST elevation MT History Obtained From: patient HISTORY OF PRESENT [...] 06/17/2024 Performed by Akilah Diaz MD at [facility] Cardiac Hangar Attendant Social History: Social History Socioeconomic History Marital [...] 10 min Stress: Stress Concern Present (07/04/2024) [place] [facility] [employer] [facility] - Occupational Stress Questionnaire Feeling of Stress : To some extent Social Connections: Unknown (07/04/2024) Social Connection and Isolation Panel [NHANES] Frequency of Communication with Friends and Family: Once a week Frequency of Social Gatherings with Friends and Family: Once a week Attends [employer]: 1 to 4 times per year [...] weight-based heparin with concern for non-ST elevation MT which will becontinued. Will hold off on [...] - DO NOT do CPR, intubation] [_] [DNR-ASSEMBLY LEAD PERSON - Comfort care only] [_] DNR form [...] Rafa Samuel MD Division of Hospitalist Medicine [facility] care Solutions documented in this [facility]01-12-2025 Emergency department Note* Yasmeen Petesren RN - 07/11/2024 7:22 PM EST AIRWAYS OPERATIONS SPECIALIST RN called for [facility]IV [id number] Emergency department Triage note* Lorie Nguyen RN - 07/11/2024 5:20 PM EST Patient arrives to er with complaints of upper abd pain. States he was here last week and had to get diuretics, he had fluid retention. Endorses similar sx and increased weight. Pt weight Friday was 170lbs, today 174lbs. Denies any SOB [id number] Physician Emergency department Note* Donaldo Kenny MD - 07/11/2024 5:20 PM EST Emergency Department Encounter [facility] ED Patient: Carlo Medina : [...] abdomen pelvis. I reviewed external records from: [facility] demonstrating no controlled substance prescriptions Patient care [...] for clarification.) Rayna Kenny MD Acute Care [facility] Donaldo Kenny MD 07/11/242036 [facility] [employer] Work Phone: [phone] 167-283501-08-2025 History of Present illness Narrative* Alex Zhang MD - 07/07/2024 1:00 PM EST [facility] Cardiology [facility] CARDIOLOGY - [address] [facility] [address] Dept: [phone] Dept Visit type: Established : 1980 Chief [...] 06/17/2024 Performed by Akilah Diaz MD at [facility] Cardiac Hangar Attendant Family History Family History Problem Relation Name [...] of DVT on apixaban. documented in this [facility]01-06-2025 Nurse Note* Anshul Hadley RN - 07/05/2024 1:59 PM EST Pt DC instructions reviewed, pt verbalized understanding, pt has home medication, no medications filled during this admission, reviewed the changes made to pt home medications, pt states that he understands this. Provided printed information regarding changes. Reviewed follow up appointments with pt, verbalized understanding. Pt taken with RN in WC off unit, pt taken to picker area, pt girlfriend present to take pt home, reviewed DC information again, verbalized understanding. VSS. No needs identified. [id number] Nurse Note* Anshul Hadley RN - 07/05/2024 1:59 PM EST Pt DC instructions reviewed, pt verbalized understanding, pt has home medication, no medications filled during this admission, reviewed the changes made to pt home medications, pt states that he understands this. Provided printed information regarding changes. Reviewed follow up appointments with pt, verbalized understanding. Pt taken with RN in WC off unit, pt taken to picker area, pt girlfriend present to take pt home, reviewed DC information again, verbalized understanding. VSS. No needs identified. documented in this [facility]01-06-2025 Note* Care Coordination - Stella Michel RN - 07/05/2024 10:54 AM EST Patient admitted to [facility] ICU with SCHUYLER on CKD and heart failure. Chart reviewed. Patient from home, has health insurance but no PCP, but did follow up with cardiology after recent discharge. No discharge needs anticipated. [id number] Note* Care Coordination - Stella Michel RN - 07/05/2024 10:54 AM EST Patient admitted to [facility] ICU with SCHUYLER on CKD and heart failure. Chart reviewed. Patient from home, has health insurance but no PCP, but did follow up with cardiology after recent discharge. No discharge needs anticipated. [facility] [id number] Miscellaneous Notes* Care Coordination - Stella Michel RN - 07/05/2024 10:54 AM EST Patient admitted to [facility] ICU with SCHUYLER on CKD and heart failure. Chart reviewed. Patient from home, has health insurance but no PCP, but did follow up with cardiology after recent discharge. No discharge needs anticipated. documented in this [facility]01-06-2025 [facility] 07-05-2024 Hospital course Narrative* Shun Craig MD - 07/05/2024 10:51 AM EST Images from the original note were not included. [facility] CCU DISCHARGE SUMMARY Patient Name: Carlo Medina [...] HTN, DVT, and HLD that presented to [facility] on 07/03/2024 from outside facility ([facility] ED) due to shortness of breath. Pt reports around 0700 he awoke with shortness of breath and abd pain. States it felt as if hecould not take a deep breath. Pt notes this has occurred in the past and felt similar to when he was admitted to [facility] in 2023. At that time he was [...] times daily Notable Medication Changes & Reasoning: [place] Simplified Medication Regimen to help with Patient [...] Center 07/07/2024 1:00 PM Alex Zhang MD MG SB [facility] CV [place] 08/30/2024 11:00 AM [facility] ECHO 1 [facility] NON-INVA [facility] Imaging 09/10/2024 11:00 AM Morgan J Laila, SURGICAL ORDERLY - NURSE ADVISOR [facility] Cosigned by Ab Coppola MD at 07/05/2024 4:35 PM EST Associated attestation - Abdon, Ab Houser MD - 07/05/2024 4:35 PM EST I personally saw and evaluated this patient prior to discharge. I examined the patient, reviewed the meds and the follow-up information. I was personally involved in, and initiated the medical therapy to be used at discharge and the follow-up to be done. Ab Coppola MD, PhD Advanced Heart Failure Cardiology [facility]. [facility] [place] 4:35 PM 07/05/24 documented in this [facility]01-06-2025 History of Present illness Narrative* Ana Salter - 07/05/2024 10:50 AM EST Nutrition rescreen completed. Chart reviewed. Patient to be monitored and followed by the diet furniture technician. * Lucrecia Pantoja, PT - 07/05/2024 10:13 AM EST Images from the original note were not included. PHYSICAL THERAPY [facility] Initial Evaluation Name/MRN: Carlo Medina ([id number]) Evaluation Date: 07/05/2024 Date of : 1980 [...] 06/17/2024 Performed by Akilah Diaz MD at [facility] Cardiac Hangar Attendant Admission Diagnosis: Patient Active Problem List Diagnosis Date Noted Acute kidney injury superimposed on CKD (HCC) ([facility]) 07/03/2024 Noncompliance 06/19/2024 History of left bundle branch block (LBBB) 06/19/2024 Sinus tachycardia 06/19/2024 Acute HFrEF (heart failure with reduced ejection fraction) ([facility]) 06/13/2024 Essential hypertension 06/08/2024 Elevated liver enzymes 06/08/2024 CKD (chronic kidney disease) 06/08/2024 Moderate malnutrition (CMS/HCC) ([facility]) 05/29/2024 Metabolic acidosis 05/28/2024 Pulmonary vascular congestion 04/28/2024 HFrEF (heart failure with reduced ejection fraction) ([facility]) 04/28/2024 Shortness of breath 02/28/2024 Leg [...] Responsibilities: Independent Receives Help From: None Active Form Worker: N/A Prior Level of Function Prior Level [...] of Care supervision is transferred to a [facility] Therapy Services Physical Therapist. Goals and/or treatment plan was established in collaboration with patient/family/other representatives. * Roopa Lugo DO - 07/05/2024 5:59 AM EST Images from the original note were not included. [facility] [place] [facility] CCU PROGRESS NOTE Patient Name: Carlo Medina : 1980 Subjective: Hospital course: Carlo Medina is a 44 y.o. male with PMH HFrEF(20% 05/2024), moderate mitral regurg, CKD 3b, HTN, DVT, and HLD that presented to [facility] on 07/03/2024 from outside facility ([facility] ED) due to shortness of breath. Pt reports around 0700 he awoke with shortness of breath and abd pain. Statesit felt as if he could not take a deep breath. Pt notes this has occurred in the past and felt similar to when he was admitted to [facility] in 2023. At that time he was [...] QT Interval 350 QTC Interval 480 P [place] 60 QRS [place] -24 T Wave [place] 89 NM Interval 153 Impression Incomplete analysis due to [...] 23.27 kg/m . - Disposition: Transfer to [facility] / Telemetry. Cosigned by Ab Coppola MD at 07/05/2024 4:34 PM EST Associated attestation - Ab Coppola MD - 07/05/2024 4:34 PM EST I, Dr. Ab Coppola, saw and evaluated the patient on 07/05/24 in T1-/ A. I personally obtained the reardon and critical portions of the history and physical exam. I reviewed the labs, imaging studies, and electronic medical record. I reviewed the Principal Archaeologist's documentation, and discussed the patient with the Principal Archaeologist. I agree with the Principal Archaeologist's medical decision making and have edited the note to reflect my clinical findings and my assessment and plan. In summary, Mr. Medina is a 44 year old man with a history of moderate MR, HFrEF from NICMP, EF 20%, CKD stage III, hypertension, who prsented to [facility] with shortness of breath and abdominal pain [...] Henever received a central line or a Savery. Today I spoke to him about the [...] to return I would like to put aSwan in for further assessment and treatment, if he is agreeable. In the absence of our ability to do anything for him, I have agreed to discharge him. Ab Coppola MD, PhD Advanced Heart Failure Cardiology [facility]. [facility] [place] 4:32 PM 07/05/24 * Cat Duque DO [...] from the original note were not included. [facility] [place] [facility] CCU PROGRESS NOTE Patient Name: Carlo Medina : 1980 Subjective: Hospital course: Carlo Medina is a 44 y.o. male with PMH HFrEF(20% 05/2024), moderate mitral regurg, CKD 3b, HTN, DVT, and HLD that presented to [facility] on 07/03/2024 from outside facility ([facility] ED) due to shortness of breath. Pt reports around 0700 he awoke with shortness of breath and abd pain. Statesit felt as if he could not take a deep breath. Pt notes this has occurred in the past and felt similar to when he was admitted to [facility] in 2023. At that time he was [...] Intake/Output Summary (Last 24 hours) at 07/04/2024 0672 Last data filed at 07/04/2024 0530 Gross [...] QT Interval 350 QTC Interval 480 P [place] 60 QRS [place] -24 T Wave [place] 89 NM Interval 153 Impression Incomplete analysis due to [...] plan. Please see H&P. documented in this [facility]01-06-2025 Hospital Discharge instructions* Discharge Instructions* Dia Gaitan RN - 07/05/2024 9:17 AM EST My Heart Failure Action Plan Use the below chart as a guide for daily symptom monitoring after you obtain your morning weight. [facility] [phone] My Diagnosis: Heart failure with reduced ejection [...] 5 pounds in a week Call your Imaging Tech!! My Diet Goal: General diet recommendations for [...] pain or cannot breathe. documented in this [facility]01-04-2025 History and physical note* Ofelia Villalobos MD - 07/03/2024 7:54 PM EST Images from the original note were not included. [facility] [place] [facility] CCU HISTORY & PHYSICAL Patient Name: Carlo Medina : 1980 Date of Admission: 07/03/2024 8:56 AM Established bottom precipitator operator: Dr. Khan Subjective: Chief Complaint: Shortness of breath History of Present Illness: Carlo Medina is a 44 y.o. male with PMH HFrEF(20% 05/2024), moderate mitral regurg, CKD 3b, HTN, DVT, and HLD that presented to [facility] on 07/03/2024 from outside facility ([facility] ED) due to shortness of breath. Pt reports around 0700 he awoke with shortness of breath and abd pain. States it felt as if hecould not take a deep breath. Pt notes this has occurred in the past and felt similar to when he was admitted to [facility] in 2023. At that time he was [...] 2 days ago. Pt was transferred to [facility] due to concern for cardiogenic shock by [...] 06/17/2024 Performed by Akilah Diaz MD at [facility] Cardiac Hangar Attendant Family History: Family History Problem Relation Name [...] up on Lasix 20mg PO 2 days CORN SHELLER. Pt appears volume up on exam. JVD [...] HTN, DVT, and HLD that presented to [facility] on 07/03/2024 from outside facility ([facility] ED) due toshortness of breath. Patient is [...] secondary to impairment of the cardiovascular system. [facility] [id number] [facility]01-04-2025 History and physical note* Ofelia Villalobos MD - 07/03/2024 7:54 PM EST Images from the original note were not included. [facility] [place] [facility] CCU HISTORY & PHYSICAL Patient Name: Carlo Medina : 1980 Date of Admission: 07/03/2024 8:56 AM Established bottom precipitator operator: Dr. Khan Subjective: Chief Complaint: Shortness of breath History of Present Illness: Carlo Medina is a 44 y.o. male with PMH HFrEF(20% 05/2024), moderate mitral regurg, CKD 3b, HTN, DVT, and HLD that presented to [facility] on 07/03/2024 from outside facility ([facility] ED) due to shortness of breath. Pt reports around 0700 he awoke with shortness of breath and abd pain. States it felt as if hecould not take a deep breath. Pt notes this has occurred in the past and felt similar to when he was admitted to [facility] in 2023. At that time he was [...] 06/17/2024 Performed by Akilah Diaz MD at [facility] Cardiac Hangar Attendant Family History: Family History Problem Relation Name [...] up on Lasix 20mg PO 2 days CORN SHELLER. Pt appears volume up on exam. JVD [...] HTN, DVT, and HLD that presented to [facility] on 07/03/2024 from outside facility ([facility] ED) due toshortness of breath. Patient is [...] of the cardiovascular system. documented in this [facility]01-04-2025 Emergency department Note* Shanti Rodriguez RN - 07/03/2024 6:23 PM EST [facility] arrived to transport pt to [facility] . Pt ambulated to stretch without difficulty. Pt A&O, calm, and cooperative, no signs of distress noted. VS stable. Resp even, non labored. [facility] [id number] Emergency department Note* Shanti Rodriguez RN - 07/03/2024 6:23 PM EST Attempted to call report to T1 at [facility] no answer. [facility] [id number] Emergency department Note* Shanti Rdoriguez RN - 07/03/2024 6:23 PM EST [facility] arrived to transport pt to [facility] . Pt ambulated to stretch without difficulty. Pt A&O, calm, and cooperative, no signs of distress noted. VS stable. Resp even, non labored. * Shanti Rodriguez RN - 07/03/2024 6:23 PM EST Attempted to call report to T1 at [facility] no answer. * Yasmeen Petersen RN - [...] shob started last pm. 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 HISTORY OF PRESENT ILLNESS (Location/Symptom, Timing/Onset, [...] 06/17/2024 Performed by Akilah Diaz MD at [facility] Cardiac Hangar Attendant CURRENT MEDICATIONS Current Discharge Medication List CONTINUE [...] min Stress: No Stress Concern Present (04/28/2024) [place] [facility] [employer] [facility] - Occupational Stress Questionnaire Feeling of Stress : Not at all Recent Concern: Stress - Stress Concern Present (02/28/2024) [place] [employer] - Occupational Stress Questionnaire Feeling of Stress : To some extent Social Connections: Unknown (04/28/2024) Social Connection and Isolation Panel [NHANES] Frequency of Communication with Friends and Family: Once a week Frequency of Social Gatherings with Friends and Family: Once a week Attends [employer]: Patient unable to answer Active Member [...] Culture. Procedure Abnormality Status --------- ------ Complete Urinalysis[[id number]] Abnormal Final result Please view results for [...] medical records reviewed, external records reviewed from [facility] cardiology Dr. Zhang on 07/01/2024 assessment and [...] 06/13/2024 and discharged on 06/21/2024 here at [facility] with hospital course as follows: Hospital Course: patient with acute HFrEF exacerbation and worsening renal function, with IV diuresis, Cardiology and nephrology following. Improvement in volume status, however now worse renal function, nephrology on consult. Repeat echo now with LVEF of 20%, cardiology following. Planned for [facility] on 06/17/24, ruled out coronary disease, deemed non-ischemic cardiomyopathy. Cardiology recommending possible transfer to [facility] to be monitored in heart failure ICU, however patient refused transfer to [facility]. Resumed on Eliquis for newly acute diagnosis [...] [facility]OC discussion as well. [facility]. Renal function improving [...] Dr. Mcguire here he recommended HLU at [facility]. I discussed with car usher and they accepted to HLU under Dr. [...] 07/03/2024 8:50 AM EST Emergency Department Encounter [facility] ED Patient: Carlo Medina : [...] provider for clarification.) Kishore Alonso DO Acute [facility] Kishore Alonso DO 07/03/24 1218 * Judie Cortes RN - 07/03/2024 8:50 AM EST Patient reports he has a history of heart disease and stage 3 kidney disease. Patient reports shob started last pm. 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 documented in this [facility]01-04-[facility] Emergency department Note* Yasmeen Petersen RN - 07/03/2024 3:17 PM EST Pt given bedside table to food tray [facility] [id number] Emergency department Note* Shanti Rodriguez RN - 07/03/2024 1:22 PM EST Pt given urinal asked to void if able. Pt states he does not have to urinate at this time. [facility] [id number] Note1. Small ascites, progressed from the prior [...] MD Electronically Signed Date/Time: 07/03/2024 10:38 AM [facility] EMERGENCY DEPARTMENT [employer] [id number] Emergency department Note* Jyotsna Wilcox RN - 07/03/2024 10:02 AM EST Patient refusing to let this RN attempt IV without ultra sound. Patient states I dont want you to poke me without it [facility]01-04-2025 Emergency department Note* Shanti Rodriguez RN - 07/03/2024 9:52 AM EST This RN attempted IV stick multiple times and was unsuccessful. Charge nurse notified. [facility]01-04-2025 Emergency department Note* Judie Cortes RN - 07/03/2024 9:16 AM EST Patient requesting to be placed on oxygen. Patients oxygen saturation was 98% on room air at time of triage. Patient is now 95% on room air. Patient advised that he does not require oxygen at this time. [facility]01-04-2025 Emergency department Triage note* Judie Cortes RN - 07/03/2024 8:50 AM EST Patient reports he has a history of heart disease and stage 3 kidney disease. Patient reports shob started last pm. 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 [facility]01-04-2025 Physician Emergency department Note* Meek Dover PA-C [...] shob started last pm. 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 HISTORY OF PRESENT ILLNESS (Location/Symptom, Timing/Onset, [...] 06/17/2024 Performed by Akilah Diaz MD at [facility] Cardiac Hangar Attendant CURRENT MEDICATIONS Current Discharge Medication List CONTINUE [...] min Stress: No Stress Concern Present (04/28/2024) [place] [facility] - Occupational Stress Questionnaire Feeling of Stress : Not at all Recent Concern: Stress - Stress Concern Present (02/28/2024) [place] [facility] [employer] [facility] - Occupational Stress Questionnaire Feeling of Stress : To some extent Social Connections: Unknown (04/28/2024) Social Connection and Isolation Panel [NHANES] Frequency of Communication with Friends and Family: Once a week Frequency of Social Gatherings with Friends and Family: Once a week Attends [employer]: Patient unable to answer Active Member [...] Culture. Procedure Abnormality Status --------- ------ Complete Urinalysis[[id number]] Abnormal Final result Please view results for [...] medical records reviewed, external records reviewed from [facility] cardiology Dr. Zhang on 07/01/2024 assessment [...] 06/13/2024 and discharged on 06/21/2024 here at [facility] with hospital course as follows: Hospital Course: patient with acute HFrEF exacerbation and worsening renal function, with IV diuresis, Cardiology and nephrology following. Improvement in volume status, however now worse renal function, nephrology on consult. Repeat echo now with LVEF of 20%, cardiology following. Planned for [facility] on 06/17/24, ruled out coronary disease, deemed non-ischemic cardiomyopathy. Cardiology recommending possible transfer to [facility] to be monitored in heart failure ICU, however patient refused transfer to [facility]. Resumed on Eliquis for newly acute diagnosis [...] GOC discussion as well. [facility]. Renal function improving [...] Dr. Mcguire here [facility] [facility]. I discussed with car usher and they accepted to [facility] under Dr. [...] Alonso DO at 07/04/2024 7:10 AM EST [id number] Physician Emergency department Note* Kishore Alonso DO - 07/03/2024 8:50 AM EST Emergency Department Encounter [facility] ED Patient: Carlo Medina : [...] [employer] Kishore Alonso DO 07/03/24 1218 [facility] Work Phone: 1(861) 787-428701-02-2025 History of Present illness Narrative* Alex Zhang MD - 07/01/2024 10:45 AM EST [facility] Cardiology [facility] CARDIOLOGY - [address] [facility] [address] Dept: [phone] Dept Visit type: Established : 1980 Chief [...] 06/17/2024 Performed by Akilah Diaz MD at [facility] Cardiac Hangar Attendant Family History Family History Problem Relation Name [...] kidney disease stage IIIb. documented in this [facility]01-02-2025 History of Present illness Narrative* Alex Zhang MD - 07/01/2024 10:45 AM EST [facility] Cardiology [facility] CARDIOLOGY - [place] [address] [facility] [address] Dept: [phone] Dept Visit type: Established : 1980 Chief [...] 06/17/2024 Performed by Akilah Diaz MD at [facility] Cardiac Hangar Attendant Family History Family History Problem Relation Name [...] kidney disease stage IIIb. documented in this [facility]01-02-2025 History of Present illness Narrative* Alex Zhang MD - 07/01/2024 10:45 AM EST [facility] Cardiology [facility] CARDIOLOGY - [address] [facility] [address] Dept: [phone] Dept Visit type: Established : 1980 Chief [...] 06/17/2024 Performed by Akilah Diaz MD at [facility] Cardiac Hangar Attendant Family History Family History Problem Relation Name [...] kidney disease stage IIIb. documented in this [facility]01-02-2025 Miscellaneous Notes* Addendum Note - THOMAS Alvarez CNP - 07/01/2024 10:45 AM ESTAddended by: SEPIDEH TOWNSEND on: 08/20/2024 04:37 PM Modules accepted: Orders documented in this [facility]01-02-2025 Note* Addendum Note - THOMAS Alvarez CNP - 07/01/2024 10:45 AM ESTAddended by: SEPIDEH TOWNSEND on: 08/20/2024 04:37 PM Modules accepted: Orders [facility] Work Phone: [phone] Note* Addendum Note - THOMAS Alvarez CNP - 07/01/2024 10:45 AM ESTAddended by: SEPIDEH TOWNSEND on: 08/20/2024 04:37 PM Modules accepted: Orders [employer] Phone: [phone]) [phone] Miscellaneous Notes* Telephone Encounter - Kaitlin Gonzalez [...] recognize or compliment: no documented in this [facility]12-26-2024 Telephone encounter Note* Telephone Encounter - [...] would like to recognize or compliment: no [id number] Telephone encounter Note* Telephone Encounter - Kaitlin Gonzalez LPN - 06/22/2024 10:17 AM EST S: Patient admitted to: [facility] 06/13/24 B: Discharged on : 06/21/24 A: Hospital follow up call initiated to discuss any medication changes, follow up appointments and discharge instructions: Acute HFrEF (heart failure with reduced ejection fraction) R: No contact x 1 at : [phone] [facility] [id number] Miscellaneous Notes* Telephone Encounter - Kaitlin Gonzalez LPN - 06/22/2024 10:17 AM EST S: Patient admitted to: [facility] 06/13/24 B: Discharged on : 06/21/24 A: Hospital follow up call initiated to discuss any medication changes, follow up appointments and discharge instructions: Acute HFrEF (heart failure with reduced ejection fraction) R: No contact x 1 at : [phone] documented in this [facility]12-23-2024 Nurse Note* Chloé Chilel RN - 06/21/2024 2:52 PM EST Gave patient discharge instructions. Patient verbalized understanding. Discussed the importance of taking the medications as prescribed. Importance of following up with Dr. Burnette and Dr Mccullough. IV discontinued. Meds to beds delivered scripts. [facility] [id number] Nurse Note* Chloé Chilel RN - 06/21/2024 [...] tele monitor. Dr. Mcguire and Gaby Marcano 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 forcardiology notified. No new orders at this [...] call light in reach. documented in this [facility]12-23-2024 [facility] 06-21-2024 Hospital course Narrative* Sergei Mcguire DO [...] non-ischemic cardiomyopathy. Cardiology recommending possible transfer to [facility] to be monitored in heart failure ICU, however patient refused transfer to [facility]. Resumed on Eliquis for newly acute diagnosis [...] Your Medications These medications were sent to [facility] [address] [facility] [address] Hours: Friday to Friday 10 am to 6 pm apixaban 5 MG tablet hydrALAZINE 25 MG tablet isosorbide dinitrate 20 MG tablet pantoprazole 40 MG EC tablet Recommended Follow-up: Cardiology, nephrology, PCP outpatient in 1-2 weeks. @READMISSIONRISK@ Complexity of Follow up: [] Moderate Complexity: follow up within 7-14 calendar days (93375) [x] Severe Complexity: follow up within 7 calendar days (27040) Follow up Testing, Pending results or Referrals [...] frame. Signed: Sergei Mcguire DO [facility] 06/21/2024, 1:54 PM Total time Spent on Discharge: 32 minutes documented in this [facility]12-23-2024 History of Present illness Narrative* Jia Santoro MD - 06/21/2024 1:44 PM EST Telemetry reviewed. No evidence of VT seen on telemetry strips sent by RN. P waves precede each QRScomplex. Patient with known intermittent LBBB. Potassium and Magnesium normal. Continue with current management. Jia Santoro MD Department of Cardiovascular Disease [facility] [place] 1:46 PM 06/21/24 * Maritza Linn, SURGICAL ORDERLY - NURSE ADVISOR - 06/21/2024 11:47 AM EST [facility] Progress Note Subjective/ 44 y.o. [...] mg daily -No s/s of KELSIE from [facility], now outside of window for potential [...] any questions or concerns. Maritza Linn APRN, NURSE ADVISOR [facility], [facility] [phone] Cosigned by Anand Mccullough MD at 06/21/2024 1:47 PM EST Associated attestation - Anand Mccullough MD - 06/21/2024 1:47 PM EST I have reviewed the above assessment and plan with the 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. I agree with above note. Lasix per cardiology. Cr stable. * Sergei Mcguire DO - 06/21/2024 10:04 AM EST Hospitalist Progress Note 06/21/2024 [phone]: Please page me ([phone]) for patient care issues. [phone]: Please page [facility] Hospitalist for any issues. Subjective: Admit Date: [...] per cardiology. Cardiology recommending possible transfer to [facility] to be monitored in heart failure ICU, [...] Significant Other Sergei Mcguire DO [facility] Inpatient Medical Services/[facility] PAGER: Epic chat * Gaby Marcano APRN - NURSE ADVISOR - 06/21/2024 8:17 AM EST [facility] Cardiology /Electrophysiology Progress Note HPI / [...] he was recommended admission tot HLU/HF-ICU at [facility], however refused transfer for. Possible etiologies are [...] is also not willing to transfer to [facility] for a higher level of care. [...] -He was recommended transfer to HLU/HF-ICU at [facility] for more aggressive management of his heart [...] low he would be a candidate for CLEARANCE REP-D - again after multiple hospitalizations and multiple [...] above, he refuses transfer to HLU/HF-ICU at [facility] for more aggressive management -We have optimized him as much as we are capable of doing so, limited by patient refusal as well asCKD -He has a high risk diagnosis of severe heart failure, which is life-threatening. -He no longer wishes to stay in hospital -He has an appointment to establish with Dr. Zahng 07/01/2024 and is instructed to keep that [...] Peña CNP Date Of Service 06/21/2024 * DO Ninoska Negro 06/20/2024 12:44 PM EST Hospitalist Progress Note 06/20/2024 [phone]: Please page me ([phone]) for patient care issues. [phone]: Please page [facility] Hospitalist for any issues. Subjective: Admit Date: [...] per cardiology. Cardiology recommending possible transfer to [facility] to be monitored in heart failure ICU, [...] Significant Other Sergei Mcguire DO [facility] In[facility] Medical Services/[facility] PAGER: Epic chat * Angel Luis Lassiter MD - 06/20/2024 10:53 AM EST [facility] [place] [facility] Cardiology Progress Note HPI / Interval History: [...] discussed with him possible transfer to [facility] for more invasive monitoring for his heart failure, but as previously, he does not want to do this. Also talked about hisneed eventually for an ICD assessment, and he may consider this in the future but currently did notwant to go to [facility] for this evaluation either. Renal also thought [...] Anticoagulation: OAC for DVT (mgt per primary) ICD/CLEARANCE REP: Candidate for CLEARANCE REP-D if LBBB became chronic but would need [...] would recommend outpt genetic testing for dilated CHILDBIRTH AND INFANT CARE TEACHER. - He is still dyspneic with light exertion but does not wish transfer to [facility] given his very borderline compensated heart failure [...] disease at this point Acute DVT. -Cont Eliqupaco mgt per primary service Nonsustained VT/ Intermittent [...] could opt for Adv HF evaluation at [facility] which is preferred. He could be Dc'd to an appropriate locationfor his level of function, but unclear if he could rehab and become stronger given low cardiac outpt. Very high risk for readmission. 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 There may be an opportunity for improved LVEF and outcome with maximal treatment and if compliant even other advanced therapies. But he is unlikely to have a better prognosis if he is unable/unwilling to accept care at [facility] level. Disposition- Cardiology will continue to follow. CARRERA with minimal activity; He may do better in the heart failure ICU with close hemodynamic monitoring, however he does not want to go to [facility]. Will try to get him managed medically [...] MD Date Of Service 06/20/2024 * Maritza VarelaBill Andujaryasmany, SURGICAL ORDERLY - NURSE ADVISOR - 06/20/2024 10:13 AM EST [facility] [...] KELSIE and a 0.12% chance of needing AIRWAYS OPERATIONS SPECIALIST -Ok for prn diuresis for s/s of [...] any questions or concerns. Maritza Linn APRN, NURSE ADVISOR [facility] [employer], [facility] [phone] Cosigned by Saul Briones MD at 06/20/2024 3:09 PM EST Associated attestation - Saul Briones MD - 06/20/2024 3:09 PM EST Notes reviewed and plan discussed with the 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. Agree with above note except Any variance is noted below. Saul Briones MD [facility] [phone] * Sergei Mcguire DO - 06/19/2024 11:53 AM EST Hospitalist Progress Note 06/19/2024 [phone]: Please page me ([phone]) for patient care issues. [phone]: Please page [facility] Hospitalist for any issues. Subjective: Admit Date: [...] Oral, BID cholecalciferol, 4,000 Units, Oral, Daily hydrALAZINE, 50 [...] per cardiology. Cardiology recommending possible transfer to [facility] to be monitored in heart failure ICU, [...] DO Division of Hospitalist Medicine Inpatient Medical Services/[facility] PAGER: Epic chat * Maritza Linn APRN - NURSE ADVISOR - 06/19/2024 9:52 AM EST [facility] Subjective/ 44 [...] KELSIE and a 0.12% chance of needing AIRWAYS OPERATIONS SPECIALIST -Ok for prn diuresis for s/s of [...] any questions or concerns. Maritza Linn APRN, NURSE ADVISOR [facility], [facility] [phone] Cosigned by Saul Briones MD at 06/19/2024 11:51 AM EST Associated attestation - Saul Briones MD - 06/19/2024 11:51 AM EST Notes reviewed and plan discussed with the blanket inspector. Agree with above note except Any variance is noted below. Saul Briones MD [facility] [phone] * Angel Luis Lassiter MD - 06/19/2024 6:52 AM EST [facility] Cardiology Progress Note HPI / Interval History: [...] discussed with him possible transfer to [facility] for more invasive monitoring for his heart failure, but as previously, he does not want to do this. Also talked about hisneed eventually for an ICD assessment, and he may consider this in the future but currently did notwant to go to [facility] for this evaluation either. Renal also thought [...] Anticoagulation: OAC for DVT (mgt per primary) ICD/CLEARANCE REP: Candidate for CLEARANCE REP-D if LBBB became chronic but would need [...] would recommend outpt genetic testing for dilated CHILDBIRTH AND INFANT CARE TEACHER. - Rec ambulate in the burgos, if he still dyspneic with minimal exertion will continue to offer transfer to [facility] given his very borderline compensated heart failure [...] could opt for Adv HF evaluation at [facility] which is preferred. He could be Dc'd to an appropriate locationfor his level of function, but unclear if he could rehab and become stronger given low cardiac outpt. Very high risk for readmission. 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 There may be an opportunity for improved [...] not want to go to [facility]. Will try to get him managed medically [...] Lassiter MD Date Of Service 06/19/2024 * Tahminaty Berg RD - 06/18/2024 2:41 PM EST [...] declining labs. Cardiology recommending possible transfer to [facility] to be monitored in heart failure ICU, however patient is refusing. LHC and RHC ruled out coronary disease, deemed non-ischemic cardiomyopathy. Pt reports jojo meals and requests to have Ensure discontinued at this time. Estimated Daily Nutrient Needs: Energy Requirements Based On: Kcal/kg Weight Used for Energy Requirements: Admission Weight for Energy Calculation (kg): 80 kg Total Energy Requirements (kcals/day): 5901-2669 kcals (25-30 kcals/kg) Weight Used for Protein [...] 186#-03/07/24, 191#-04/28/24) % Weight Change (Calculated): -14.5 [place] Body Weight (lbs) (Calculated): 184 lbs [place] Body Weight (Kg) (Calculated): 84 kg % [place] Body Weight (Calculated): 95.2 % BMI (kg/m2) [...] Continue current diet Tahmina Berg RD Contact: *[phone] or via Secure Chat * Sergei Mcguire DO - 06/18/2024 11:10 AM EST Hospitalist Progress Note 06/18/20246991078-4687: Please page me ([phone]) for patient care issues. [phone]: Please page [facility] Hospitalist for any issues. Subjective: Admit Date: 06/13/2024 PCP: No primary care provider on file. Room#: -243/[facility] A Interval History: patient admitted for acute [...] per cardiology. Cardiology recommending possible transfer to [facility] to be monitored in heart failure ICU, [...] DO Division of Hospitalist Medicine Inpatient Medical Services/[facility] PAGER: Epic chat * Maritza Linn, SURGICAL ORDERLY - NURSE ADVISOR - 06/18/2024 10:46 AM EST [facility] [...] labs again this morning, now agreeable and AIRWAYS OPERATIONS SPECIALIST RN at bedside for US collection -Last labs were near bl~1.5-1.7, non-oliguric, BP stable -C/w holding diuresis through today until labs can be interpreted -Jorge Alberto score is 7 points, c/w a 14% chance of KELSIE and a 0.12% chance of needing AIRWAYS OPERATIONS SPECIALIST -Again, counseled on importance of allowing labs [...] contact us with any questions or concerns. Maritaz Linn APRN, NURSE ADVISOR [facility], [facility] [phone] Cosigned by Anand Mccullough MD at 06/18/2024 4:06 PM EST Associated attestation - Anand Mccullough MD - 06/18/2024 4:06 PM EST SCHUYLER/ATN, possibly 2/2 volume depletion from over-diuresis vs CRS (N17.0) Acute on chronic HFrEF exacerbation (I50.23) Met acidosis 87.21 Z91.1 Still euvolemic. Cr stable. Add Torsemide 10mg qday. * Angel Luis Morales MD - 06/18/2024 10:46 AM EST [facility] [place] [facility] Cardiology /Electrophysiology Progress Note HPI / Interval [...] discuss with him possible transfer to [facility] for more invasive monitoring for his heart failure, but as previously, he does not want to do this. We also talked about his need eventually for an ICD assessment, and he may consider this in the future but currently does not want to go to [facility] for this evaluation either. of 5 recent [...] exertion willneed to rediscuss transfer to [facility] given his very borderline compensated heart failure [...] not want to go to [facility]. Will try to get him managed medically [...] Date Of Service 06/18/2024 * Maritza Linn, SURGICAL ORDERLY - NURSE ADVISOR - 06/17/2024 1:34 PM EST [facility] [...] KELSIE and a 0.12% chance of needing AIRWAYS OPERATIONS SPECIALIST -Agree with post-procedure IVF as ordered per [...] any questions or concerns. Maritza Linn APRN, NURSE ADVISOR [facility], [employer] [phone] Cosigned by Anand Mccullough MD at 06/17/2024 [...] volume status. * Gaby Marcano APRN - NURSE ADVISOR - 06/17/2024 1:22 PM EST [facility] [place] [facility] Cardiology /Electrophysiology Progress Note HPI / Interval [...] 2200. [facility] [...] 20 (A) 55 - 100 % Final THMOAS Peña CNP Date Of Service 06/17/2024 * Sergei Braxtonshane, DO - 06/17/2024 1:15 PM EST Hospitalist Progress Note 06/17/20246993840-3819: Please page de ([phone]) for patient care issues. [phone]: Please page [facility] Hospitalist for any issues. Subjective: Admit Date: 06/13/2024 PCP: No primary care provider on file. Room#: -243/[facility] A Interval History: patient admitted for acute [...] DO Division of Hospitalist Medicine Inpatient Medical Services/[facility] PAGER: Epic chat * Sergei Mcguire DO - 06/16/2024 3:41 PM EST Hospitalist Progress Note 06/16/2024 [phone]: Please page me ([phone]) for patient care issues. [phone]: Please page [facility] Hospitalist for any issues. Subjective: Admit Date: [...] DO Division of Hospitalist Medicine Inpatient Medical Services/[facility] PAGER: Epic chat * Maritza Linn, SURGICAL ORDERLY - NURSE ADVISOR - 06/16/2024 11:42 AM EST [facility] [...] questions or concerns. Maritza Linn APRN, VIKKI [facility] [employer] [phone] Cosigned by Anand Mccullough MD at 06/16/2024 [...] - VIKKI - 06/16/2024 10:32 AM EST [facility] [place] [facility] Cardiology /Electrophysiology Progress Note HPI / Interval [...] Pulse: [phone] Resp: 18 18 16 Temp: 37.3 C (99.1 F) [...] 5:24 PM EST Hospitalist Progress Note 06/15/2024 [phone]: Please page me ([phone]) for patient care issues. [phone]: Please page [facility] Hospitalist for any issues. Subjective: Admit Date: [...] DO Division of Hospitalist Medicine Inpatient Medical Services/[facility] PAGER: Epic chat * Angel Luis Morales MD - 06/15/2024 4:08 PM EST [facility] [place] [facility] Cardiology /Electrophysiology Progress Note HPI / Interval [...] he has refused to go to [facility] when this was offered to him 2 [...] Severe Extremities (Pt here for HF exacerbation) Promotion Producer Strength: Not Performed Nutrition Assessment: Pt is a 44 y/o male admitted to [facility] with CC of SOB, leg swelling for [...] >1 month. During a previous admit to [facility], pt had trialed Ensure, but felt like [...] (kg): 80 kg Total Energy Requirements (kcals/day): 4002-9578 kcals (25-30 kcals/kg) Weight Used for Protein [...] 186#-03/07/24, 191#-04/28/24) % Weight Change (Calculated): -14.5 [place] Body Weight (lbs) (Calculated): 184 lbs [place] Body Weight (Kg) (Calculated): 84 kg % [place] Body Weight (Calculated): 95.2 % BMI (kg/m2) [...] Oral Nutrition Supplement Dudley Oropeza RD Contact: *[phone] or via Secure Chat * Serg Celaya MD - 06/14/2024 9:58 AM EST Hospitalist Progress Note 06/14/20246999510-5748: Please page de ([phone]) for patient care issues. [phone]: Please page [facility] Hospitalist for any issues. Subjective: Admit Date: 06/13/2024 PCP: No primary care provider on file. Room#: [facility] A Interval History: No overnight issues. Patient [...] Adult diet Regular; Low Sodium (2 gm) @[id number]@ 24HR INTAKE/OUTPUT: Intake/Output Summary (Last 24 hours) [...] MD Division of Hospitalist Medicine Inpatient Medical Services/[facility] PAGER: Epic chat documented in this [facility]12-23-2024 Nurse Note* Tamiko Live RN - 06/21/2024 1:[address] Mcguire and Gaby Marcano APRN from cardiology regarding 20 beat run of VT through message. ] [phone] Note* Care Coordination - Brittany Alston RN [...] Length of Stay (Days): 8 GMLOS: 5.4 [facility]12-23-2024 Note* Care Coordination - Brittany Alston RN [...] Length of Stay (Days): 8 GMLOS: 5.4 [facility]12-23-2024 Miscellaneous Notes* Care Coordination - Brittany Alston [...] Significant Event - Gaby Marcano APRN - VIKKI - 06/17/2024 8:43 AM EST Spoke with Marcus Delvalle RN from r&d lab technician. Pt refused RHC/LHC yesterday, but was agreeable [...] was able to communicated with Christian from [employer]. Financial screening completed with patient this afternoon. Patient was over income for Medicaid program. [employer] referred patient to Hospital Care Assurance Program; application completed and submitted. HCAP will assist with current hospitalization and other [facility] hospital encounters for up to 3 months [...] or improved Outcome: Progressing documented in this [facility]12-22-2024 Plan of care note* Care Plan - King Jackson RN - 06/20/2024 5:46 PM EST Problem: Problem Interventions Goal: Promote nutritional intake Outcome: Progressing Problem: Knowledge Deficit Goal: Patient/family/caregiver demonstrates understanding of disease process, treatment plan, medications, and discharge instructions Outcome: Progressing Problem: Potential for Compromised Skin Integrity Goal: Nutritional status is improving Outcome: Progressing [facility] [id number] Consult note* Verona Shah, SURGICAL ORDERLY - NURSE ADVISOR - 06/20/2024 7:42 AM ESTAssociated Order(s): IP [...] refusing appropriate care such as transfer to [facility] - introduced myself and service, why consulted, [...] really in contact with her, education of [place] law should he not be able to make medical decisions, states he would want GF to make medical decisions, will place social media intern consult to complete this hopefully before dc [...] CM, CKD, HTN, HLD, returned to [facility] with BLE edema and increased work of breathing, admitted for another CHF exacerbation, appears not taking medications as prescribed at home, attempted to look at dispense report for community pharmacy but not found. Hospital stay further complicated by his refusal of interventions, lab work, did finally agree to R/L HC the other day. [facility]ICD[facility]life vest[facility], prompting palliative care consult for goals of care Patient awake in bed in NAD, watching brow[place]/[employer] game. He is without pain, CP, abdominal [...] detailed in the note above. Verona Shah, SURGICAL ORDERLY - NURSE ADVISOR Time-based code 97788 for 16-45 minutes. Add-on code 29369 at 46 minutes and each additional 30 minutes. Goals of care:Continue Current Management Functional Assessment: PPS: 90% Advance Directives: Full Code Surrogate: Significant Other Prognosis: [id number] than one year--if does not pursue cardiology recommendations for care Spiritual assessment: No spiritual distress identified Bereavement and grief: Grief Issues Not Identified Past Medical History: Diagnosis Date CHF (congestive heart failure) (HCC) CKD (chronic kidney disease) Hypercholesteremia Hypertension Past Surgical History: Procedure Laterality Date CARDIAC CATHETERIZATION N/A 06/17/2024 Performed by Akilah Diaz MD at [facility] Cardiac Hangar Attendant Family History Problem Relation Name Age of Onset Heart disease Father Heart disease Brother Unable to obtain family history due to N/A- family history available No Known Allergies Review of Systems ROS: See palliative care ROS/ESAS below; All other systems were reviewed and are negative. Herman Symptom Assessment Score Herman Score Pain Score 0 Tiredness Score 0 [...] other day. Needs AICD/life vest, transfer to [facility] but refusing this, prompting palliative care consult for goals of care. If does not adhere to cardiology recommendations for life-saving and prolonging therapies, life expectancy limited to 6 months or less should illness run it's natural course Transition Note Initiated: yes. Cosigned by Hortencia Hayward MD at 06/20/2024 4:55 PM EST [facility] Work Phone: 1(992) 788-822612-22-2024 Consult note* THOMAS Melvin CNP - 06/20/2024 [...] refusing appropriate care such as transfer to [facility] - introduced myself and service, why consulted, [...] really in contact with her, education of [place] law should he not be able to make medical decisions, states he would want GF to make medical decisions, will place social media intern consult to complete this hopefully before dc [...] the other day. Needs AICD/life vest, [facility], prompting palliative care [...] detailed in the note above. Verona Shah, SURGICAL ORDERLY - NURSE ADVISOR Time-based code 03373 for 16-45 minutes. Add-on code 73882 at 46 minutes and each additional 30 minutes. Goals of care:Continue Current Management Functional Assessment: PPS: 90% Advance Directives: Full Code Surrogate: Significant Other Prognosis: pmfsto-cy-whsq than one year--if does not pursue cardiology recommendations for care Spiritual assessment: No spiritual distress identified Bereavement and grief: Grief Issues Not Identified Past Medical History: Diagnosis Date CHF (congestive heart failure) (HCC) CKD (chronic kidney disease) Hypercholesteremia Hypertension Past Surgical History: Procedure Laterality Date CARDIAC CATHETERIZATION N/A 06/17/2024 Performed by Akilah Diaz MD at [facility] Cardiac Hangar Attendant Family History Problem Relation Name Age of Onset Heart disease Father Heart disease Brother Unable to obtain family history due to N/A- family history available No Known Allergies Review of Systems ROS: See palliative care ROS/ESAS below; All other systems were reviewed and are negative. Herman Symptom Assessment Score Herman Score Pain Score 0 Tiredness Score 0 [...] other day. Needs AICD/life vest, transfer to [facility] but refusing this, prompting palliative care [...] CHF exacerbation Consulting MD: Dr. Sergei Mcguire [facility] Outpatient Clinical Product Specialist: N/A History of Present Illness: Carlo is [...] any questions or concerns. Maritza Linn APRN, NURSE ADVISOR [facility], [employer] [phone] office Cosigned by Anand Mccullough MD at [...] AM ESTAssociated Order(s): IP CONSULT TO CARDIOLOGY [facility] [place] [facility] Cardiology /Electrophysiology Consult Note Reason for Consult/Chief Complaint: Dyspnea, edema Consulting provider: Andrew Established bottom precipitator operator: Leatha History of Present Illness: Carlo [...] DATE of SERVICE: 06/14/2024 documented in this [facility]12-21-2024 Plan of care note* Care Plan - King Jackson RN - 06/19/2024 2:31 PM EST Problem: Potential for Compromised Skin Integrity Goal: Nutritional status is improving Outcome: Progressing Problem: Problem Interventions Goal: Dietary Supplements Outcome: Progressing Problem: Knowledge Deficit Goal: Patient/family/caregiver demonstrates understanding of disease process, treatment plan, medications, and discharge instructions Outcome: Progressing [facility] [id number] Nurse Note* Juliet Canchola RN - 06/18/2024 12:41 PM EST Patient refusing troponin blood draw at this time. [facility] HospitalRdnyei34-17-9089 Hospital Discharge instructions* Discharge Instructions* THOMAS Urbano CNP - 06/18/2024 9:11 AM EST Expect a phone call within 72 hours post discharge. If you have questions, issues, or concerns please call or text the Ischemic Heart Disease Hotline, this is a cell phone, # [phone] (available 20/01) Post Cardiac Catheterization/Wrist Site Care Call your doctor with any medication questions or if you notice any side effects from your medications. If you are unable to fill your medications, please call your Imaging Tech immediately. The office number is located with [...] Means You Should: Call/text the Ischemic hotline [phone] or your doctor's office for further instructions RED ZONE: Medical Alert Chest pain/pressure/discomfort or pain in the neck, jaw, arm, upper back that is lasting longer than 5 minutes OR NOT relieved after nitroglycerin (if prescribed) Severe shortness of breath Passing out or fainting This Means You Should Call 911 Immediately Heart-Healthy Life-Style Modifications Take your medications as prescribed Quit smoking ([email or web address]) Control your blood sugar Treat high-blood pressure Eat a heart-healthy diet, low in saturated and trans-fat, sodium and added sugars Exercise regularly Achieve and maintain a healthy weight Keep your follow-up appointments Ask Your Provider Before You Take New medications Fyjk-zyn-ookvdcs drugs, nutrition supplements or herbal therapies Avoid [...] Cardiac Rehab The Cardiac Rehab team at [facility] consists of highly skilled exercise physiologists, nurses, [...] your heart. We have facilities at both [facility] and [facility]. At both locations we have street level parking which is free and our sites are easily accessible. For both campuses you can contact us at . We invite you to call us with your questions or to get started in our program. If you have other questions or concerns be sure to ask your provider during your follow up visit. We look forward to seeing you there. Our locations: [facility] [address] [facility] [address] Floor [id number] - Ground floor * Attachments The following attachments cannot be sent through Care Everywhere. * Heart Failure With Reduced Ejection Fraction (Mozambican) * Heart Healthy Diet (Mozambican) * Kidney Failure (Mozambican) documented in this [facility]12-20-2024 Nurse Note* Kae Zhao RN - 06/18/2024 6:41 AM EST Patient had ST elevation on two leads, I called Dr. Jeter EKG done and showed ST elevation, and sinus tachycardia, with no symptoms or chest pain. Patient refused blood work again to check his troponin, BNP, and magnesium levels. IV is edematous and patient needs a new IV if not discharged. [facility] [id number] NoteProblem: Problem Interventions Goal: Promote nutritional intake Outcome: [facility] Plan of care note* Care Plan - Kae Vela RN - 06/18/2024 1:44 AM EST Problem: Problem Interventions Goal: Promote nutritional intake Outcome: Not Progressing [facility] HospitalVlpwad34-49-2487 Nurse Note* Juliet Canchola RN - 06/17/2024 2:17 PM EST Patient had a twenty second run of vtach caught on tele monitor. Dr. Mcguire and Gaby Marcano 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 forcardiology notified. No new orders at this time. [facility] HospitalYdyxle52-47-2582 Nurse Note* Juliet Canchola RN - 06/17/2024 [...] sensation in right hand at this time. Technical [id number] Note* Pre-Sedation Documentation - Akilah Diaz MD [...] and proceed to administer sedation as planned. [employer] Phone: [phone]) 288-474512-19-2024 Note* Pre-Sedation Documentation - Akilah Diaz MD [...] and proceed to administer sedation as planned. [employer] Phone: [phone]) 868-958212-19-2024 Note* Significant Event - Gaby Marcano APRN - VKIKI - 06/17/2024 8:43 AM EST Spoke with Marcus Delvalle RN from r&d lab technician. Pt refused RHC/LHC yesterday, but was agreeable [...] at this time. Will await cath results. [employer] [id number] Note* Significant Event - THOMAS Urbano CNP - 06/17/2024 8:43 AM EST Spoke with Marcus Delvalle RN from r&d lab technician. Pt refused RHC/LHC yesterday, but was agreeable [...] at this time. Will await cath results. [facility] [id number] Nurse Note* Radha Acevedo RN - 06/16/2024 [...] he refused for nightshift. Radha Acevedo RN [facility]12-18-2024 Plan of care note* Care Plan - [...] Goal: Promote nutritional intake Outcome: Not Progressing [facility]12-17-2024 Note* Care Coordination - Brittany Alston [...] Length of Stay (Days): 2 GMLOS: 3.9 [facility]12-17-2024 Note* Care Coordination - Brittany Alston [...] Length of Stay (Days): 2 GMLOS: 3.9 [facility]12-17-2024 Consult note* Maritza Linn, SURGICAL ORDERLY - NURSE ADVISOR - 06/15/2024 9:44 AM ESTAssociated Order(s): IP CONSULT TO NEPHROLOGY [facility] Consult Note Reason for Consult/Chief Complaint: SCHUYLER/CKD with CHF exacerbation Consulting MD: Dr. Sergei Mcguire [facility] Outpatient Clinical Product Specialist: N/A History of Present Illness: Carlo is [...] any questions or concerns. Maritza Linn APRN, NURSE ADVISOR [facility], [employer] [phone] office Cosigned by Anand Mccullough MD at [...] of Cr. PVR to r/o urinary retention. [facility] HospitalNlfgkl17-29-1635 Plan of care note* Care Plan - Emerald Allan RN - 06/15/2024 5:42 AM EST Problem: Knowledge Deficit Goal: Patient/family/caregiver demonstrates understanding of disease process, treatment plan, medications, and discharge instructions Outcome: Progressing Problem: Potential for Compromised Skin Integrity Goal: Skin Integrity is Maintained or Improved Outcome: Progressing Problem: Urinary Incontinence Goal: Perineal skin integrity is maintained or improved Outcome: Progressing [facility] HospitalEqyyku49-16-8984 Nurse Note* Emerald Allan RN - 06/15/2024 3:09 AM EST Patient is resting in bed. Bed in low position and locked with call light in reach. [facility] HospitalKzdlun48-95-8155 Note* Care Coordination - MICHAEL Kramer - 06/14/2024 2:33 PM EST JOZEF coverage for today. Chart reviewed. Pt discussed in rounds today. Pt is self pay, but has indicates that he will have insurance starting in Jun 2024. Per old chart on 04/28/2024 SW was able to communicated with Christian from [employer]. Financial screening completed with patient this afternoon. Patient was over income for Medicaid program. [employer] referred patient to Hospital Care Assurance Program; application completed and submitted. HCAP will assist with current hospitalization and other [facility] hospital encounters for up to 3 months if approved. HCAP will not assist with home going prescriptions. SW will follow to assist as needed. [facility] HospitalVicjys92-65-2102 Note* Care Coordination - MICHAEL Kramer - 06/14/2024 2:33 PM EST JOZEF coverage for today. Chart reviewed. Pt discussed in rounds today. Pt is self pay, but has indicates that he will have insurance starting in Jun 2024. Per old chart on 04/28/2024 JOZEF was able to communicated with Christian from [employer]. Financial screening completed with patient this afternoon. Patient was over income for Medicaid program. [employer] referred patient to Hospital Care Assurance Program; application completed and submitted. HCAP will assist with current hospitalization and other [facility] hospital encounters for up to 3 months if approved. HCAP will not assist with home going prescriptions. SW will follow to assist as needed. [facility] HospitalMynhyr94-04-7599 Consult note* Angel Luis Morales MD - 06/14/2024 9:04 AM ESTAssociated Order(s): IP CONSULT TO CARDIOLOGY [facility] [place] [facility] Cardiology /Electrophysiology Consult Note Reason for Consult/Chief Complaint: Dyspnea, edema Consulting provider: Andrew Cotton bottom precipitator operator: Leatha History of Present Illness: Carlo [...] service. Medications: carvedilol, 25 mg, Oral, BID cholecalciferol, 4,000 Units, Oral, Daily clopidogrel, 75 [...] Luis Morales MD DATE of SERVICE: 06/14/2024 [facility]12-15-2024 Plan of care note* Care Plan - [...] integrity is maintained or improved Outcome: Progressing [facility]12-15-2024 History and physical note* Serg Celaya [...] min Stress: No Stress Concern Present (04/28/2024) [place] of Occupational Health - Occupational Stress Questionnaire Feeling of Stress : Not at all Recent Concern: Stress - Stress Concern Present (02/28/2024) [place] [employer] - Occupational Stress Questionnaire Feeling of Stress : To some extent Social Connections: Unknown (04/28/2024) Social Connection and Isolation Panel [NHANES] Frequency of Communication with Friends and Family: Once a week Frequency of Social Gatherings with Friends and Family: Once a week Attends [facility]: Patient unable to answer Active Member [...] patient's PCP. Thank you. Electronically signed by @[email or web address]@ on @TDNR@ at @[email or web address]@ [facility] HospitalVaypzq51-56-2894 [facility]12-15-2024 History and physical note* Serg Celaya MD [...] min Stress: No Stress Concern Present (04/28/2024) [place] [employer] - Occupational Stress Questionnaire Feeling of Stress : Not at all Recent Concern: Stress - Stress Concern Present (02/28/2024) [place] [employer] Occup[employer] - Occupational Stress Questionnaire Feeling of Stress : To some extent Social Connections: Unknown (04/28/2024) Social Connection and Isolation Panel [NHANES] Frequency of Communication with Friends and Family: Once a week Frequency of Social Gatherings with Friends and Family: Once a week Attends [facility]: Patient unable to answer Active Member [...] patient's PCP. Thank you. Electronically signed by @[facility]R@ on @TDNR@ at @NOWNR@ documented in this [facility]12-15-2024 Emergency department Note* Jono Dubois DO [...] min Stress: No Stress Concern Present (04/28/2024) [place] [employer] - Occupational Stress Questionnaire Feeling of Stress : Not at all Recent Concern: Stress - Stress Concern Present (02/28/2024) [place] [employer] - Occupational Stress Questionnaire Feeling of Stress : To some extent Social Connections: Unknown (04/28/2024) Social Connection and Isolation Panel [NHANES] Frequency of Communication with Friends and Family: Once a week Frequency of Social Gatherings with Friends and Family: Once a week Attends [facility]: Patient unable to answer Active Member [...] 06/13/2024 1:45 PM EST Emergency Department Encounter [facility] CARDIAC PROGRESSIVE CARE UNIT PCU 2E Patient: [...] for clarification.) Joel Reyes MD Acute Care [facility] Joel Reyes MD 06/14/24 1447 * Rosa Gr RN - 06/13/2024 1:45 PM EST Pt presents for abdominal pain starting yesterday. States he vomited earlier today. Denies diarrhea. Also having loss of appetite. Denies urinary symptoms. Also having swelling in BLE x2 weeks. Hx CHF. +fatigue documented in this [facility]12-15-2024 Emergency department Triage note* Rosa Gr RN - 06/13/2024 1:45 PM EST Pt presents for abdominal pain starting yesterday. States he vomited earlier today. Denies diarrhea. Also having loss of appetite. Denies urinary symptoms. Also having swelling in BLE x2 weeks. Hx CHF. +fatigue [facility] HospitalJsbaol94-03-1803 Physician Emergency department Note* Jono Dubois DO [...] min Stress: No Stress Concern Present (04/28/2024) [place] [facility] [employer] - Occupational Stress Questionnaire Feeling of Stress : Not at all Recent Concern: Stress - Stress Concern Present (02/28/2024) [place] [employer] - Occupational Stress Questionnaire Feeling of Stress : To some extent Social Connections: Unknown (04/28/2024) Social Connection and Isolation Panel [NHANES] Frequency of Communication with Friends and Family: Once a week Frequency of Social Gatherings with Friends and Family: Once a week Attends [facility]: Patient unable to answer Active Member [...] 10 g (10 g Oral Given 06/13/24 163) PROCEDURES: Unless otherwise noted below, none Procedures [...] Reyes MD at 06/14/2024 2:47 PM EST [employer] Phone: 1(592) 913-326912-15-2024 Physician Emergency department Note* Joel Reyes MD - 06/13/2024 1:45 PM EST Emergency Department Encounter [facility] CARDIAC PROGRESSIVE CARE UNIT PCU 2E Patient: [...] provider for clarification.) Joel Reyes MD [facility] Joel Reyes MD 06/14/24 6378 [employer] Phone: [phone] Telephone encounter Note* Telephone Encounter - THOMAS [...] Zhang July 01, 2023 for continued evaluation. [facility]12-12-2024 Miscellaneous Notes* Telephone Encounter - THOMAS Mi [...] his feet and ankles. documented in this [facility]12-12-2024 Telephone encounter Note* Telephone Encounter - Sue Felipe - 06/10/2024 10:37 AM EST Pt called in stating he's been having stomach pains on and off yesterday and wants to know what he should do. He also states he is still having swelling in his feet and ankles. [facility] [id number] History of Present illness Narrative* THOMAS Mi CNP - 06/08/2024 9:30 AM EST Images from the original note were not included. [facility] Cardiology Office Note DATE of SERVICE: 06/08/24 TIME of SERVICE: 11:12 AM Reason for Visit: Chief Complaint Patient presents with Hospital Follow-up History ofPresent Illness: Carlo Medina is a 44 y.o. male who presents in office today after his admission to [facility] 05/28/2024-06/01/2024. He has a history [...] 30% per transthoracic echo February 2024-appears decompensated, [place] Heart [employer] functional class III, stage C [...] he please notify our office. Morgan Ulloa APRN/NURSE ADVISOR documented in this [place] [address]-10-2024 Miscellaneous Notes* Addendum Note - Radha Hernandez - 06/08/2024 9:30 AM ESTAddended by: RADHA HERNANDEZ on: 06/08/2024 12:19 PM Modules accepted: Orders documented in this [facility]12-10-2024 Note* Addendum Note - Radha Hernandez - 06/08/2024 9:30 AM ESTAddended by: RADHA HERNANDEZ on: 06/08/2024 12:19 PM Modules accepted: [id number] Note* Addendum Note - Radha Hernandez - 06/08/2024 9:30 AM ESTAddended by: RADHA HERNANDEZ on: 06/08/2024 12:19 PM Modules accepted: Orders [place] [id number] Telephone encounter Note* Telephone Encounter - Tracy Harris - 06/07/2024 9:53 AM EST Patient unable to pay the 50% at time of appt due to declined hcap and no health insurance. [place] [id number] Miscellaneous Notes* Telephone Encounter - Tracy Harris - 06/07/2024 9:53 AM EST Patient unable to pay the 50% at time of appt due to declined hcap and no health insurance. documented in this [facility]12-06-2024 Telephone encounter Note* Telephone Encounter - Sintia Sosa LPN - 06/04/2024 4:04 PM EST Spoke with the patient and he does not have health insurance nor does he qualify for medicaid or hospital judie per his girlfriend. He has a follow-up appt with cardio on 2023. I did give them the phone number for Teri Santos. [facility] HospitalWnnxmh49-17-7401 Miscellaneous Notes* Telephone Encounter - Sintia Sosa [...] does not have insurance. [facility] to follow-up with patient during office hours for scheduling assistance. documented in this encounterSNorwalk Memorial HospitalCygiuh80-06-7105 Telephone encounter Note* Telephone Encounter - Kaitlin Gonzalez LPN - 06/04/2024 7:38 AM EST Please contact patient to schedule. [facility] HospitalVpdaez60-90-9450 Emergency department Note* Louise Wakefield RN - 06/03/2024 10:03 PM EST This RN asked if pt wanted to come back into triage to have lucrecia wrap placed. Significant other said, I'll put it on. Pt and significant other left. [facility] HospitalWpzylo38-64-6826 Emergency department Note* Louise Wakefield RN - [...] stage 3 kidney disease documented in this [facility]12-05-2024 Hospital Discharge instructions* Discharge Instructions* Jia Victor PA-C - 06/03/2024 9:01 PM EST Please follow-up with your bottom precipitator operator on the as scheduled. You will [...] prescribed and follow-upas recommended. documented in this [facility]12-05-2024 Telephone encounter Note* Telephone Encounter - Lore Sarah RN - 06/03/2024 8:20 PM EST Pt needs to establish care with a PCP for an ED follow-up visit as soon as possible for LLE edema. Pt does not have insurance. [facility] to follow-up with patient during office hours for scheduling assistance. [place] [id number] Emergency department Triage note* Belkys Townsend RN - 06/03/2024 6:28 PM EST Pt presents to ED for c/o Bilateral leg swelling since yesterday and was recently diagnosed and admitted for CHF and stage 3 kidney disease [facility] HospitalRcwrxq21-25-3336 Telephone encounter Note* Telephone Encounter - Kaitlin Gonzalez LPN - 06/03/2024 10:04 AM EST S: Patient admitted to: [facility] 05/28/24 B: Discharged on : 06/01/24 A: Hospital follow up call initiated to discuss any medication changes, follow up appointments and discharge instructions: Metabolic acidosis R: No contact x 1 at : [phone] [id number] Miscellaneous Notes* Telephone Encounter - Kaitlin Gonzalez LPN - 06/03/2024 10:04 AM EST S: Patient admitted to: [facility] 05/28/24 B: Discharged on : 06/01/24 A: Hospital follow up call initiated to discuss any medication changes, follow up appointments and discharge instructions: Metabolic acidosis R: No contact x 1 at : [phone] documented in this [place] [address]-04-2024 Telephone encounter Note* Telephone Encounter - Kalyn Street - 06/02/2024 6:54 PM EST Name of caller: Carlo Contact phone number: [phone] Relationship to Patient: patient Provider: Morgan Ulloa CNP Practice: Cardiology Chief Complaint/Reason for Call: Patient returning call from office. Please call and advise. Best time of day caller can be reached: AM Patient advised that office/PCP has 24-48 business hours to return their call: No [place] [id number] Miscellaneous Notes* Telephone Encounter - Kalyn Teaguekins - 06/02/2024 6:54 PM EST Name of caller: Carlo Contact phone number: [phone] Relationship to Patient: patient Provider: Morgan Ulloa CNP Practice: Cardiology Chief Complaint/Reason for Call: Patient returning call from office. Please call and advise. Best time of day caller can be reached: AM Patient advised that office/PCP has 24-48 business hours to return their call: No documented in this [facility]12-03-2024 Nurse Note* More Rojas RN - 06/01/2024 4:40 PM EST Patient discharged to home with all belongings. Iv was removed and heart monitor returned to nursing station. Discahrge paper work reviewed with patient, all questions answered. Patient reluctant to follow up at the offices in [place]. He is agreeable to follow up in [place] if he gets insurance. He was instructed to call for surgical, cardiac, and primary care appointments after discharge. He was also agreeable to picker his new prescripts if they are affordable. [id number] Nurse Note* More Rojas RN - 06/01/2024 4:40 PM EST Patient discharged to home with all belongings. Iv was removed and heart monitor returned to nursing station. Discahrge paper work reviewed with patient, all questions answered. Patient reluctant to follow up at the offices in [place]. He is agreeable to follow up in [place] if he gets insurance. He was instructed to call for surgical, cardiac, and primary care appointments after discharge. He was also agreeable to picker his new prescripts if they are [...] need for daily labs. documented in this [facility]12-03-2024 Hospital Discharge instructions* Discharge Instructions* Mary [...] Everywhere. * Heart Failure Discharge Instructions, Adult ([place]ozambican) * DASH Diet ([place]ozambican) * How to Weigh Yourself ([place]ican) documented in this [facility]12-03-2024 Consult note* Steven Bellamy MD - 06/01/2024 3:16 PM ESTAssociated Order(s): IP CONSULT TO GENERAL SURGERY Images from the original note were not included. Attending Attestation [facility] - General Surgery Patient Name: Carlo [...] min Stress: No Stress Concern Present (04/28/2024) [place] [employer] - Occupational Stress Questionnaire Feeling of Stress : Not at all Recent Concern: Stress - Stress Concern Present (02/28/2024) [place] [employer] - Occupational Stress Questionnaire Feeling of Stress : To some extent Social Connections: Unknown (04/28/2024) Social Connection and Isolation Panel [NHANES] Frequency of Communication with Friends and Family: Once a week Frequency of Social Gatherings with Friends and Family: Once a week Attends [employer]: Patient unable to answer Active Member [...] Ultrasound Melendez sign is positive. Per the medical technologist microbiology, the sonographic Melendez's sign wasnegative. Bile ducts: [...] EST Result History US abdomen complete (Order #[id number]) on 05/31/2024 - Order Result History Report [...] data. No Terri risk assessment data. No LIDAR SCIENTIST Request ID assessment data. No [facility] facer operator ID assessment data. Breast Cancer Risk Navigation Events None Signed by Signed Time Phone Pager Joel Hi MD 05/31/2024 16:20 Exam Information Status Exam Begun Exam Ended Final 05/31/2024 15:37 05/31/2024 16:00 External Results Report Open External Results Report Encounter View Encounter Study Details Open Study Details Order Transmittal Tracking US abdomen complete (Order #[id number]) on 05/31/24 Order Report US abdomen complete (Order #[id number]) on 05/31/24 CBC: Recent Labs 05/30/24 1222 [...] 7:30a-4:30p Friday-Friday After hours, please contact physician interventionist. [facility] Work Phone: 1(576) 552-528012-03-2024 Consult note* Steven Bellamy MD - 06/01/2024 3:16 PM ESTAssociated Order(s): IP CONSULT TO GENERAL SURGERY Images from the original note were not included. Attending Attestation [facility] - General Surgery Patient Name: Carlo [...] min Stress: No Stress Concern Present (04/28/2024) [place] [employer] - Occupational Stress Questionnaire Feeling of Stress : Not at all Recent Concern: Stress - Stress Concern Present (02/28/2024) [place] [employer] - Occupational Stress Questionnaire Feeling of Stress : To some extent Social Connections: Unknown (04/28/2024) Social Connection and Isolation Panel [NHANES] Frequency of Communication with Friends and Family: Once a week Frequency of Social Gatherings with Friends and Family: Once a week Attends [employer]: Patient unable to answer Active Member [...] Impression [facility]LO MEDINA [facility] 1980 [id number] Exam Date/Time: 05/31/2024 15:37 Procedure: US ABDOMEN [...] Ultrasound Melendez sign is positive. Per the medical technologist microbiology, the sonographic Melendez's sign wasnegative. Bile ducts: [...] EST Result History US abdomen complete (Order #[id number]) on 05/31/2024 - Order Result History Report [...] data. No Terri risk assessment data. No LIDAR SCIENTIST Request ID assessment data. No [facility] facer operator ID assessment data. Breast Cancer Risk Navigation Events None Signed by Signed Time Phone Pager Joel Hi MD 05/31/2024 16:20 Exam Information Status Exam Begun Exam Ended Final 05/31/2024 15:37 05/31/2024 16:00 External Results Report Open External Results Report Encounter View Encounter Study Details Open Study Details Order Transmittal Tracking US abdomen complete (Order #[id number]) on 05/31/24 Order Report US abdomen complete (Order #[id number]) on 05/31/24 CBC: Recent Labs 05/30/24 1222 [...] 7:30a-4:30p Friday-Friday After hours, please contact physician interventionist. * Tahmina Berg RD - 05/29/2024 2:14 [...] muscle mass loss Fluid Accumulation: Mild Extremities Promotion Producer Strength: Not Performed Nutrition Assessment: 44 y.o. [...] On: Kcal/kg Weight Used for Energy Requirements: [place] Weight for Energy Calculation (kg): 84 kg Total Energy Requirements (kcals/day): 5666-1836 (25-30) Weight Used for Protein Requirements: [place] Weight in Kg Used for Protein Requirements: [...] per pt) % Weight Change (Calculated): -12.2 [place] Body Weight (lbs) (Calculated): 184 lbs [place] Body Weight (Kg) (Calculated): 84 kg % [place] Body Weight (Calculated): 97.8 % BMI (kg/m2) [...] outpatient nutrition counseling Tahmina Berg RD Contact: *[phone] or via Secure Chat * Garrick Bearden MD - 05/28/2024 3:25 PM ESTAssociated Order(s): IP CONSULT TO CARDIOLOGY [facility] [place] [facility] Cardiology /Electrophysiology Consult Note Reason for Consult/Chief Complaint: Nausea, vomiting, feeling dehydrated Referring provider: Sidney Cotton bottom precipitator operator: Katerin History of Present Illness: Carlo [...] pain, palpitations or syncope. 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 Assessment/Plan HF NYHA Class [...] recommended that he be transferred to [facility] cardiology service possibly even the heart failure [...] DATE of SERVICE: 05/28/2024 * Maritza Linn, SURGICAL ORDERLY - NURSE ADVISOR - 05/28/2024 1:28 PM ESTAssociated Order(s): IP CONSULT TO NEPHROLOGY [facility] Consult Note Reason for Consult/Chief Complaint: worsening renal function Consulting MD: Dr. Mary Ellen Brito Outpatient Clinical Product Specialist: N/A History of Present Illness: Carlo Medina [...] any questions or concerns. Maritza Linn APRN, NURSE ADVISOR [facility], [facility] [phone] office Cosigned by Saul Briones MD at [...] PRN hydral for now. Saul Briones MD [facility] [phone] documented in this [facility]12-03-2024 Note* Rapid Response Note - Jose Raul Barahona RN - 06/01/2024 1:46 PM EST Labs drawn and given to More Evans at pts bedside [facility] [id number] Note* Rapid Response Note - Jose Raul Barahona RN - 06/01/2024 1:46 PM EST Labs drawn and given to More Evans at pts bedside [facility] [id number] Miscellaneous Notes* Rapid Response Note - Jose Raul Barahona RN - 06/01/2024 1:46 PM EST Labs drawn and given to More Evans at pts bedside * Care Coordination - Dia Gaitan RN - 05/31/2024 9:55 AM EST 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 Pt has been unable to follow up with Cardiology as pt is uninsured. - Per note on 04/28, pt has been denied Medicaid as he is over income. - Pt completed an HCAP application on 04/28/24 during a previous hospitalization at [facility]. This RN has made multiple attempts to [...] Will continue to follow. Addendum: Notified by [facility] that [employer] screened the patient over income [...] is improving Outcome: Progressing documented in this [facility]12-03-2024 [facility] 06-01-2024 Hospital course Narrative* Mary Ellen Brito [...] failure) (HCC) Hypercholesteremia Hypertension Procedures: US abdomen 12/2: Impression: 1. Gallbladder wall thickening with pericholecystic [...] START taking these medications cholecalciferol 50 MCG (2000 [...] Your Medications These medications were sent to [facility]/pharmacy #[id number] - [place], [place] - [address] [address] carvedilol 25 MG tablet cholecalciferol 50 MCG (1999 [place]) tablet clopidogrel 75 MG tablet furosemide 40 MG tablet hydrALAZINE 25 MG tablet isosorbide dinitrate 20 MG tablet sodium bicarbonate 650 MG tablet Recommended Follow-up: Sergei Astudillo MD [address] [facility] [address] Follow up The heart failure/cardiology office will call you to scheduled follow-up. [facility] [address] [facility] [address] Follow up If you cannot get insurance, please call [facility] at [phone] and tell them you need follow-up with Dr. Conklin for your heart failure. Maritza Linn, SURGICAL ORDERLY - NURSE ADVISOR [address] [place] [address] Follow up in 1 week(s) Steven Bellamy MD [address] [facility] [address] [facility] [address] Schedule an appointment as soon as possible for a visit in 1 week(s) Hospital follow up, [place] pace [facility] [place] [address] [phone] Complexity of Follow up: [] Moderate Complexity: follow up within 7-14 calendar days (37871) [x] Severe Complexity: follow up within 7 calendar days (20563) Follow up Testing, Pending results or Referrals at Transitional Care Visit: [x] Yes - MRI pending and patient to follow up with surgmar in one weeks time. [] no Instructions [...] Ellen Brito MD Division of Hospitalist Medicine [facility] 06/01/2024, 3:59 PM documented in this [facility]12-03-2024 Nurse Note* More Rojas RN - [...] of if he is discharged or not. [facility] [id number] History of Present illness Narrative* Morgan Ulloa APRN - VIKIK - 06/01/2024 9:59 AM EST [facility] and [facility] Cardiology /Electrophysiology Progress Note HPI / Interval History: Carlo Medina, 44 year old male presented to [facility] with shortness of breath, nausea, vomiting and acute decompensated heart failure. He was recently admitted to [facility] and diagnosed with probable NICM- EF-30% per [...] Pt requests to follow up at the [place] office, states he is unable to follow up at [facility] office-it is too far for mygirlfriend to drive. Assessment/Plan HF NYHA Class [] I [x] II [] III [] IV []Unable to assess [] N/A NICM HFrEF- Stage C, Class II, EF 30% per TTE 02/2024 -appears euvolemic on exam today and has no current HF symptoms - pt states he will not follow up at [facility]- too far to drive. Follow up arranged [facility] Cardiology [place] office 06/08/2024 at 9:30 am. - continue [...] barrier to care and case management and community mental health social worker have been consultedto assist with obtaining insurance [...] and SCHUYLER 6. Disposition- follow up arrange [facility] Cardiology [place] office 06/08/2024 at 9:30 am with myself -If he cannot obtain insurance, he can follow-up with Dr. Conklin at [facility] - pt states if possible he does not wish to follow up in the [facility] office due to transportation. Medications: carvedilol, 25 [...] with any questions or concerns. Maritza Linn, SURGICAL ORDERLY, NURSE ADVISOR [facility], [facility] [phone] Cosigned by Anand Mccullough MD at 05/31/2024 [...] trying to set him up with discharge mechanic's assistant. He was notified that if needed Dr. Chafee operates at [facility] and can follow-up with cardiology as [...] (HCC) Hypercholesteremia Hypertension LABS: CBC: Recent Labs 05/29/24 [...] weights Cardiology consult -recommending possible transfer to [facility] for more invasive cardiovascular workup given the intensity of heart failure and the young age Continue daily labs SCHUYLER and ATN on CKD 3b Obtain urine studies HOLD diuretics and ARN Consider alternative HTN treatment in [place]. Nephrology consulted Added sodium bicarbonate 650 mg [...] will reapproach cardiology recommendations for transfer to [facility] tomorrow. He was feeling little bit overwhelmed during discussions today, - am labs, replace lytes prn -05/31-patient feeling slightly better than yesterday, to notice some depression, would like to recommend outpatient counselor. He declined at this time. States he does not know how to swallow pills and does not want to be evaluated by HEALTH SERVICES MANAGER to see if he can be educated on how to swallow. Will continue to adjust medication monitoring electrolytes. If stable tomorrow with final recommendations for home medication regiment will possibly discharge tomorrow. Cardiology will need to follow-up outpatient and no need to transfer to [facility] anymore - PT/OT/CM/SW - delirium precautions: increase [...] Ellen Brito MD Division of Hospitalist Medicine [facility] * Lizzette Burger, THOMAS - NURSE ADVISOR - 05/31/2024 8:11 AM EST [facility] and [facility] Cardiology /Electrophysiology Progress Note HPI / Interval History: Carlo Medina has a history of recently diagnosed HFrEF likely due to NICM and probable CKD who presented to [facility] with shortness of breath, nausea, vomiting and acute decompensated heart failure. He was hospitalized at [facility] where he had an echocardiogram showing EF [...] - no current need to transfer to [facility] HF service, we can titrate medications and [...] barrier to care and case management and community mental health social worker have been consulted to assist with obtaining [...] at 05/31/2024 0811 Last data filed at 05/30/20242047 Gross per [...] No primary care provider on file. Room#: B2-715/B2-632 B BRIEF HOSPITAL COURSE: ajay is a [...] that cardiology was requesting to transfer to [facility] for greater workup. At this time he [...] weights Cardiology consult -recommending possible transfer to [facility] for more invasive cardiovascular workup given the intensity of heart failure and the young age Continue daily labs SCHUYLER and ATN on CKD 3b Obtain urine studies HOLD diuretics and ARN [facility]. Nephrology consulted Added sodium bicarbonate 650 mg [...] will reapproach cardiology recommendations for transfer to [facility] tomorrow. He was feeling little bit overwhelmed [...] Ellen Brito MD Division of Hospitalist Medicine [facility] * Maritza Linn, SURGICAL ORDERLY - NURSE ADVISOR - 05/30/2024 10:47 AM EST [facility] [...] any questions or concerns. Maritza Linn APRN, NURSE ADVISOR [facility] [employer], [facility] [phone] Cosigned by Saul Briones MD at 05/30/2024 2:41 PM EST Associated attestation - Saul Briones MD - 05/30/2024 2:41 PM EST Notes reviewed and plan discussed with the 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. Agree with above note except Any variance is noted below. Saul Briones MD [facility] [phone] * Lizzette Burger APRN - VIKKI - 05/30/2024 7:24 AM EST [facility] [place] [facility] Cardiology /Electrophysiology Progress Note HPI / Interval History: Carlo Medina has a history of recently diagnosed HFrEF likely due to NICM and probable CKD who presented to [facility] with shortness of breath, nausea, vomiting and acute decompensated heart failure. He was hospitalized at [facility] where he had an echocardiogram showing EF [...] primary service arrange f/u with patient's outpatient bottom precipitator operator 1-2 wks. [x] Recommended; unable to arrange at this time, will arrange post-discharge The heart failure clinic will call him to arrange follow-up [] Arranged as follows: If there are any questions/concerns, please contact the covering provider. If no answer by Secure Chat, please call the cardiology office to obtain appropriate covering GEOPHYSICAL MANAGER/physician. Medications: carvedilol, 25 mg, Oral, BID WC [...] No primary care provider on file. Room#: B2-267/267 B BRIEF HOSPITAL COURSE: Carlo is a [...] hours. CARDIAC ENZYMES: Recent Labs 05/28/24 0811 11/29/24 1249 TROPONINI 0.051* 0.037* Procalcitonin: No results [...] Dasha Lyn MD Division of Hospitalist Medicine [facility] * Maritza Linn, SURGICAL ORDERLY - NURSE ADVISOR - 05/29/2024 9:40 AM EST [facility] [...] questions or concerns. Maritza Linn APRN, VIKKI [facility] [employer], [facility] [phone] Cosigned by Saul Briones MD at 05/29/2024 12:46 PM EST Associated attestation - Saul Briones MD - 05/29/2024 12:46 PM EST Notes reviewed and plan discussed with the PA. Agree with above note except Any variance is noted below. Renal function improving and near baseline. Continue to trend as the patient is diuresed. Saul Briones MD [facility] [phone] * THOMAS An CNP - 05/29/2024 7:40 AM EST [facility] [place] [facility] Cardiology /Electrophysiology Progress Note HPI / Interval History: Carlo Medina has a history of recently diagnosed HFrEF likely due to NICM and probable CKD who presented to [facility] with shortness of breath, nausea, vomiting and acute decompensated heart failure. 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 Pt has been unable to follow up with Cardiology as pt is uninsured. - Per SW note on 04/28, pt has been denied Medicaid as he is over income. - Pt completed an HCAP application on 04/28/24 during a previous hospitalization at [facility]. This RN has made multiple attempts to [...] Will continue to follow. Addendum: [facility] screened the patient over income for Medicaid, but did not assist with a Medicaid application for denial. [employer] to go see patient and have him sign forms to apply for Medicaid for denial so HCAP application can be processed. 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 Pt has been unable to follow up with Cardiology as pt is uninsured. - Per SW note on 04/28, pt has been denied Medicaid as he is over income. - Pt completed an HCAP application on 04/28/24 during a previous hospitalization at [facility]. This RN has made multiple attempts to [...] Will continue to follow. Addendum: Notified by [employer] that [employer] screened the patient over income for Medicaid, but did not assist with a Medicaid application for denial. [employer] to go see patient and have him sign forms to apply for Medicaid for denial so HCAP application can be processed. [facility] CenterCognoptix, Inc.[id number] Nurse Note* Kira Santos RN - 05/31/2024 [...] medications and how many he is on. Technical [id number] Plan of care note* Care Plan - King Jackson RN - 05/30/2024 5:48 PM EST Problem: Knowledge Deficit Goal: Patient/family/caregiver demonstrates understanding of disease process, treatment plan, medications, and discharge instructions Outcome: Progressing Problem: Potential for Compromised Skin Integrity Goal: Skin Integrity is Maintained or Improved Outcome: Progressing Problem: Potential for Compromised Skin Integrity Goal: Nutritional status is improving Outcome: Progressing Technical [id number] Nurse Note* King Jackson RN - 05/30/2024 [...] reassured concerns would be addressed to physicians. Technical [id number] Telephone encounter Note* Telephone Encounter - THOMAS An CNP - 05/30/2024 9:18 AM EST Patient admitted to [facility] with recurrent HF, SCHUYLER and lack of appetite. Mildly volume overloaded. Titration of HF meds difficult to patient resistance. He will need 1-2 week follow-up in HF clinic (he was initially seen by Dr. Astudillo). Please call to schedule. Thanks. [employer] Sp[employer] Phone: [phone]) 772-393112-01-2024 Miscellaneous Notes* Telephone Encounter - THOMAS An CNP - 05/30/2024 9:18 AM EST Patient admitted to [facility] with recurrent HF, SCHUYLER and lack of appetite. Mildly volume overloaded. Titration of HF meds difficult to patient resistance. He will need 1-2 week follow-up in HF clinic (he was initially seen by Dr. Astudillo). Please call to schedule. Thanks. documented in this [facility]12-01-2024 Nurse Note* Tita Hernandez RN - 05/30/2024 5:14 AM EST Pt did not want to get stuck for labs and wanted to talk with daytime Dr about need for daily labs. [facility] [id number] Consult note* Tahmina Berg RD - 05/29/2024 [...] muscle mass loss Fluid Accumulation: Mild Extremities Promotion Producer Strength: Not Performed Nutrition Assessment: 44 y.o. [...] On: Kcal/kg Weight Used for Energy Requirements: [place] Weight for Energy Calculation (kg): 84 kg Total Energy Requirements (kcals/day): 5586-2151 (25-30) Weight Used for Protein Requirements: [place] Weight in Kg Used for Protein Requirements: [...] per pt) % Weight Change (Calculated): -12.2 [place] Body Weight (lbs) (Calculated): 184 lbs [place] Body Weight (Kg) (Calculated): 84 kg % [place] Body Weight (Calculated): 97.8 % BMI (kg/m2) [...] outpatient nutrition counseling Tahmina Berg RD Contact: *[phone] or via Secure Chat [facility] [id number] Plan of care note* Care Plan - King Jackson RN - 05/28/2024 4:04 PM EST Problem: Knowledge Deficit Goal: Patient/family/caregiver demonstrates understanding of disease process, treatment plan, medications, and discharge instructions Outcome: Progressing Problem: Potential for Compromised Skin Integrity Goal: Skin Integrity is Maintained or Improved Outcome: Progressing Problem: Potential for Compromised Skin Integrity Goal: Nutritional status is improving Outcome: Progressing [facility] [id number] Consult note* Garrick Bearden MD - 05/28/2024 3:25 PM ESTAssociated Order(s): IP CONSULT TO CARDIOLOGY [facility] [place] [facility] Cardiology /Electrophysiology Consult Note Reason for Consult/Chief Complaint: Nausea, vomiting, feeling dehydrated Referring provider: [facility] bottom precipitator operator: Katerin History of Present Illness: Carlo [...] pain, palpitations or syncope. 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 Assessment/Plan HF NYHA Class [...] recommended that he be transferred to [facility] cardiology service possibly even the heart failure [...] Garrick Bearden MD DATE of SERVICE: 05/28/2024 Technical Machine Work Phone: 1(535) 482-349911-29-2024 History and physical note* Mary Ellen Brito [...] min Stress: No Stress Concern Present (04/28/2024) [place] [facility] Occupational Health - Occupational Stress Questionnaire Feeling of Stress : Not at all Recent Concern: Stress - Stress Concern Present (02/28/2024) [place] [facility] - Occupational Stress Questionnaire Feeling of Stress : To some extent Social Connections: Unknown (04/28/2024) Social Connection and Isolation Panel [NHANES] Frequency of Communication with Friends and Family: Once a week Frequency of Social Gatherings with Friends and Family: Once a week Attends [employer] Services: Patient unable to answer Active Member [...] Appearance: Normal appearance. He is not ill-appearing. FABIANT: Head: Normocephalic. Mouth/Throat: Mouth: Mucous membranes are [...] Relation: Significant Other [employer] Carlo Stevo : 1980 Primary Care Physician: No primary care provider on file. The patient and/or family/surrogate voluntarily agreed to participate in ACP services. Patient s cognitive capacity: intact Code Status: [X] [FULL CODE - Continue all advanced life support: CPR,intubation,invasive procedures] [_] [DNR-CCA - DO NOT do CPR, intubation] [_] [DNR-ASSEMBLY LEAD PERSON - Comfort care only] [_] DNR form [...] Ellen Brito MD Division of Hospitalist Medicine [facility] [id number] [facility]11-29-2024 History and physical note* Mary Ellen Brito [...] min Stress: No Stress Concern Present (04/28/2024) [place] [facility] Occup[facility] - Occupational Stress Questionnaire Feeling of Stress : Not at all Recent Concern: Stress - Stress Concern Present (02/28/2024) [place] [facility] Occup[facility] - Occupational Stress Questionnaire Feeling of Stress : To some extent Social Connections: Unknown (04/28/2024) Social Connection and Isolation Panel [NHANES] Frequency of Communication with Friends and Family: Once a week Frequency of Social Gatherings with Friends and Family: Once a week Attends [employer] Services: Patient unable to answer Active Member [...] - DO NOT do CPR, intubation] [_] [DNR-ASSEMBLY LEAD PERSON - Comfort care only] [_] DNR form [...] Ellen Brito MD Division of Hospitalist Medicine [facility] documented in this [facility]11-29-2024 Consult note* Maritza Linn, SURGICAL ORDERLY - NURSE ADVISOR - 05/28/2024 1:28 PM ESTAssociated Order(s): IP CONSULT TO NEPHROLOGY [facility] Consult Note Reason for Consult/Chief Complaint: worsening renal function Consulting MD: Dr. Mary Ellen Brito Outpatient Clinical Product Specialist: N/A History of Present Illness: Carlo Medina [...] any questions or concerns. Maritza Linn APRN, NURSE ADVISOR [facility], [facility] [phone] office Cosigned by Saul Briones MD at [...] PRN hydral for now. Saul Briones MD [facility] [phone] [facility] HospitalRzuqso27-53-0565 NoteSinus tachycardia Probable left atrial enlargement Abnormal R-wave progression, late transition Left ventricular hypertrophy Nonspecific T abnormalities, lateral leads Anterior ST elevation, probably due to LVH Electronically Signed On 05-28-2024 09:01:45 EST by Izaiah Lo [employer] 05-28-2024 NoteSinus tachycardia Probable left atrial enlargement Abnormal R-wave progression, late transition Left ventricular hypertrophy Nonspecific T abnormalities, lateral leads Anterior ST elevation, probably due to LVH Electronically Signed On 05-28-2024 09:01:45 EST by Izaiah Lo [employer] 05-28-2024 Emergency department Note* Chas Torres MD - 05/28/2024 7:59 AM EST [facility] ED EMERGENCY DEPARTMENT ENCOUNTER Pt Name: Carlo [...] min Stress: No Stress Concern Present (04/28/2024) [place] [facility] - Occupational Stress Questionnaire Feeling of Stress : Not at all Recent Concern: Stress - Stress Concern Present (02/28/2024) [place] [facility] - Occupational Stress Questionnaire Feeling of Stress : To some extent Social Connections: Unknown (04/28/2024) Social Connection and Isolation Panel [NHANES] Frequency of Communication with Friends and Family: Once a week Frequency of Social Gatherings with Friends and Family: Once a week Attends [facility] Services: Patient unable to answer Active Member [...] 120 (*) Narrative: Performed by: Pam Alvarado [facility], [address] [place] [id number] CLIA ID: [id number] CBC WITH AUTO DIFFERENTIAL - Normal Auto [...] from admission for further hydration and monitoring. [facility] contacted to evaluate for admission. to accept. Patient to be admitted. Diagnoses as of 05/28/24 1153 Metabolic acidosis HFrEF (heart failure with reduced ejection fraction) ([facility]) CONSULTS: None hepatic function panel PROCEDURES: Unless otherwise noted below, none Procedures FINAL IMPRESSION 1. Metabolic acidosis 2. HFrEF (heart failure with reduced ejection fraction) ([facility]) DISPOSITION/PLAN DISPOSITION Admit 05/28/2024 11:46:07 AM [...] 05/28/2024 7:59 AM EST Emergency Department Encounter [facility] ED Patient: Carlo Medina : [...] provider for clarification.) Izaiah Martins MD Acute [facility] Izaiah Martins MD 05/28/24 1221 * Michelle [...] he takes every day. documented in this [facility]11-29-2024 Emergency department Triage note* Michelle Potter [...] takes lasix which he takes every day. [facility] [id number] Physician Emergency department Note* Chas Torres MD - 05/28/2024 7:59 AM EST [facility] ED EMERGENCY DEPARTMENT ENCOUNTER Pt Name: Carlo [...] min Stress: No Stress Concern Present (04/28/2024) [place] [facility] - Occupational Stress Questionnaire Feeling of Stress : Not at all Recent Concern: Stress - Stress Concern Present (02/28/2024) [place] [facility] - Occupational Stress Questionnaire Feeling of Stress : To some extent Social Connections: Unknown (04/28/2024) Social Connection and Isolation Panel [NHANES] Frequency of Communication with Friends and Family: Once a week Frequency of Social Gatherings with Friends and Family: Once a week Attends [employer] Services: Patient unable to answer Active Member [...] Abnormal Glucose 120 (*) Narrative: Performed by: [facility] Hospitalerto[facility], [address] [place] [address] CLIA ID: [id number] CBC WITH AUTO DIFFERENTIAL - Normal Auto [...] from admission for further hydration and monitoring. [facility] contacted to evaluate for admission. to accept. Patient to be admitted. Diagnoses as of 05/28/24 1153 Metabolic acidosis HFrEF (heart failure with reduced ejection fraction) ([facility]) CONSULTS: None hepatic function panel PROCEDURES: Unless otherwise noted below, none Procedures FINAL IMPRESSION 1. Metabolic acidosis 2. HFrEF (heart failure with reduced ejection fraction) ([facility]) DISPOSITION/PLAN DISPOSITION Admit 05/28/2024 11:46:07 AM [...] Martins MD at 05/28/2024 12:21 PM EST [facility] [id number] Physician Emergency department Note* Izaiah Martins MD - 05/28/2024 7:59 AM EST Emergency Department Encounter [facility] ED Patient: Carlo Medina : [...] for clarification.) Izaiah Martins MD Acute Care [facility] Izaiah Martins MD 05/28/24 1221 [employer] Phone: 1(364) 984-744611-06-2024 Telephone encounter Note* Telephone Encounter - Dia Gaitan RN - 05/05/2024 10:00 AM EST 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 Discussed with Ben Berger [facility] JOZEF who suggested speaking with [facility] Financial Assistance 05/05: According to [facility] Financial Assistance, pt does not have an application pending. Marcus Carroll, Waterproofing Supervisor assisting to find a contact at [facility] for an update. 05/10: Still no word on a [facility] contact. Attempting to find contact through Marcus Rubio of [facility] Customer Service. 05/17: No update. Sent request to Waterproofing Supervisor team. 05/19: Received notification from Mckayla Ray from [facility], it appears current HCAP application isstill pending. 05/31: Pt rehospitalized for ADHF. Message sent to Rayna Carroll check status who reports HCAP (denied 05/19/24) cannot be approved until a formal MD denial is received --> dept now looking to track down pt's Medicaid Notice of Action. Notified by [facility] that [facility] screened the patient over income for Medicaid, but did not assist with a Medicaid application for denial. [facility] to go see patient today and have him sign forms to apply for Medicaid for denial so HCAP application can be processed. Will continue to follow. 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 Discussed with Ben Berger [facility] who suggested speaking with [facility] Financial Assistance 05/05: According to [facility] Financial Assistance, pt does not have an application pending. Marcus Carroll, Waterproofing Supervisor assisting to find a contact at [facility] for an update. 05/10: Still no word on a [facility] contact. Attempting to find contact through Marcus Rubio of [facility] Customer Service. 05/17: No update. Sent request to Waterproofing Supervisor team. 05/19: Received notification from Mckayla Ray from [facility], it appears current HCAP application isstill pending. 05/31: Pt rehospitalized for ADHF. Message sent to Rayna Carroll check status who reports HCAP (denied 05/19/24) cannot be approved until a formal MD denial is received --> dept now looking to track down pt's Medicaid Notice of Action. Notified by [employer] that [facility] screened the patient over income for Medicaid, but did not assist with a Medicaid application for denial. [facility] to go see patient today and have him sign forms to apply for Medicaid for denial so HCAP application can be processed. Will continue to follow. documented in this [facility]11-01-2024 Telephone encounter Note* Telephone Encounter - Sregei Astudillo MD - 04/30/2024 4:31 PM EDT Spoke with patient. Patient still describes burning chest pain. No pressure, aching, SOB, or new symptoms. Low concern for cardiac chest pain based on recent admission and descriptions. Encouraged to continue cardiac meds and gave ER precautions for cardiac chest pain. 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 [...] me today or tomorrow. Dr. Astudillo updated. 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 [...] tomorrow. Dr. Astudillo updated. documented in this encounterSNorwalk Memorial HospitalDhfgmp58-90-5117 Telephone encounter Note* Telephone Encounter - Dia Gaitan RN - 04/29/2024 10:04 AM EDT model engine mechanic: Confirmed with [facility] that pt able to be scheduled once HCAP is approved. Call to Billing ([phone]) to discuss pending HCAP application which was completed on 04/28. Per Billing, application should be processed within 4-6 weeks max. Pt still without PCP and previously declinedscheduling in the [facility]. Pt is a high readmission risk, has been admitted 3x for HF since February. Will continue to follow chart and schedule [facility] follow up as soon as able. 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 Call to Billing ([phone]) to discuss pending HCAP application which was completed on 04/28. Per Billing, application should be processed within 4-6 weeks max. Pt still without PCP and previously declinedscheduling in the [facility]. Pt is a high readmission risk, has been admitted 3x for HF since February. Will continue to follow chart and schedule [facility]FC follow up as soon as able. documented in this encounterSNorwalk Memorial HospitalRpwdas58-92-3319 Miscellaneous Notes* Care Coordination - MICHAEL Addison - 04/28/2024 3:06 PM EDT CDU SW follow up. Communicated with Christian from [employer]. Financial screening completed with patient this afternoon. Patient was over income for Medicaid program. [facility] referred patient to Hospital Care Assurance Program; application completed and submitted. [facility] encounters for up to 3 months if approved. HCAP will not assist with home going prescriptions. * Care Coordination - MICHAEL Addison - 04/28/2024 1:50 PM EDT CDU SW follow up. Patient discussed in morning rounds with CDU provider, staff development coordinator and TCC. Patient uninsured. SW reached out to [facility] representative Gonzales to determine if agency received referral from [facility] [employer] ([employer]) to see patient/complete financial screening. Per [facility], agencyhas not received referral. SW reached out to [facility] [employer] Jose to review. After review, FC decided to refer to [facility] this afternoon. Await outcome of [facility]'s financial screening. Per CDU provider, patient may be released this afternoon. Provider concerned about patient's ability to pay for home-going meds. Good Rx card given to CDU provider who will pass on to patient. Pending outcome of [facility]'s financial screening and cost of prescriptions, patient may be eligible for medication assistance through [facility]'s Indigent Fund. SW following. 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 Pt receiving treatment for acute on chronic HFrEF. Pt newly diagnosed with HFrEF in 02/2024 and has been unable to attend any follow up d/t lack of insurance coverage and inability to self pay. Since diagnosis, multiple unsuccessful attempts have beenmade by this RN to connect pt with SW in the [facility] and to confirm insurance status. - Spoke [...] Practice Guidelines and references available on the [facility] Heart Failure resource page (Resources --> [facility] --> Heart Failure) Established Imaging Tech: None Follow up scheduled within 14 days: TBD- pending insurance/financial assistance. Recommend HF ISAAC. LVEF evaluation within the past 12 months: Yes NYHA class documentation by provider: Yes HF order set used: Yes Daily weight ordered:Yes Intake and output ordered: Yes HF education added: Yes HF care plan added: Yes Class 1 HFrEF GDMT (Treatment pathway available on [facility] Heart Failure resource page) LUCRECIA/ARB/ARNI: Yes, losartan 100mg daily BB: Yes, carvedilol 6.25mg BID MRA: Yes, spironolactone 25mg daily SGLT2-I: No- if financial assistance able to be obtained for follow up and medications, recommend dapagliflozin 10mg daily (HFrEF, per last Cardiology note- probable CKD) Diuretic: Yes, 60mg IV lasix BID (CORN SHELLER 80mg furosemide daily) If pt has been [...] / present: No IV Venofer recommended: TBD CLEARANCE REP-D Appropriateness Screen (Referral pathway available on [facility] Heart Failure resource page) LVEF < [...] these barriers include n/a. documented in this encounterSNorwalk Memorial [id number] Note* Care Coordination - MICHAEL Addison - 04/28/2024 3:06 PM EDT U SW follow up. Communicated with Christian from [employer]. Financial screening completed with patient this afternoon. Patient was over income for Medicaid program. [facility] referred patient to Hospital Care Assurance Program; application completed and submitted. HCAP will assist with current [facility] and other [facility] hospital encounters for up to 3 months if approved. HCAP will not assist with home going prescriptions. [facility] HospitalDoxobd49-67-1336 Note* Care Coordination - MICHAEL Addison - 04/28/2024 3:06 PM EDT CDU SW follow up. Communicated with Christian from [employer]. Financial screening completed with patient this afternoon. Patient was over income for Medicaid program. [facility] referred patient to Hospital Care Assurance Program; application completed and submitted. HCAP [facility] hospital encounters for up to 3 months if approved. HCAP will not assist with home going prescriptions. [facility] HospitalAzdfzi26-02-2193 Nurse Note* Jillian Ferguson RN - 04/28/2024 3:02 PM EDT Discharge instructions given to and reviewed in detail with patient and his significant other. Patient verbalized understanding of all discharge instructions, all questions answered at the best of myability at this time. [facility] [id number] Nurse Note* Jillian Ferguson RN - 04/28/2024 3:02 PM EDT Discharge instructions given to and reviewed in detail with patient and his significant other. Patient verbalized understanding of all discharge instructions, all questions answered at the best of myability at this time. * Jillian Ferguson RN - 04/28/2024 10:09 AM EDT Notified [facility] 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 CDU patient reported 2/10 chest pain, STAT EKG obtained. Karrie read EKG and stated it's okay, chronic findings. Administer nitroglycerin prn and morphine prn. documented in this [facility]10-30-2024 Consult note* MICHAEL Addison - 04/28/2024 2:09 PM EDTAssociated Order(s): IP CONSULT TO SOCIAL WORK SW consult received today from Dia Gaitan RN, Uninsured, unable to pay out of pocket for follow up appointments- was denied MD in Feb because did not provide pay stubs. See SW progress note(s). [facility] HospitalBkyauk50-45-9085 [facility]10-30-2024 Consult note* MICHAEL Addison - 04/28/2024 2:09 PM EDTAssociated Order(s): IP CONSULT TO SOCIAL WORK SW consult received today from Dia Gaitan RN, Uninsured, unable to pay out of pocket for follow up appointments- was denied MD in Feb because did not provide pay stubs. See SW progress note(s). * Rupesh Troy MD - 04/28/2024 8:42 AM EDTAssociated Order(s): IP CONSULT TO CARDIOLOGY [facility] [place] [facility] Cardiology /Electrophysiology Consult Note Reason for Consult/Chief Complaint: CHF Referring provider: Dr. Maya Established bottom precipitator operator: None History of Present Illness: Carlo [...] D-dimer, normal troponin[place] [address] pg/mL. CTA was negative for PE, but [...] with cardiology outpatient--would like to establish near [place], [place]--and does not have PCP due to lack of health insurance and is currently in process of trying to enroll into Medicaid. Assessment/Plan HF NYHA Class [] I [x] II [] III [] IV []Unable to assess Heart failure with reduced ejection fraction Hypertension; uncontrolled - Echo from 02/29/2024 shows EF 30%, global hypokinesis, diastolic dysfunction, normal [place] [address] pg/mL (~9,000 during 02/2024 admission) and pleural [...] thereafter - Establish with outpatient cardiology (near [place]). Social work following to help patient acquire [...] of Cardiovascular Disease, Division of Heart Failure [facility] [place] 4:05 PM 04/28/24 documented in this [facility]10-30-2024 Note* Care Coordination - MICHAEL Addison - 04/28/2024 1:50 PM EDT CDU SW follow up. Patient discussed in morning rounds with CDU provider, staff development coordinator and TCC. Patient uninsured. SW reached out to [facility] account executive sales representative Christian to determine if agency received referral from [facility] [employer] ([employer]) to see patient/complete financial screening. Per [facility], agencyhas not received referral. SW reached out to [facility] [employer] to review. After review, FC decided to refer to [facility] this afternoon. Await outcome of [facility]'s financial screening. Per CDU provider, patient may be released this afternoon. Provider concerned about patient's ability to pay for home-going meds. Good Rx card given to CDU provider who will pass on to patient. Pending outcome of [facility]'s financial screening and cost of prescriptions, patient may be eligible for medication assistance through [facility]'s Indigent Fund. SW following. [facility] [id number] Note* Care Coordination - MICHAEL Addison - 04/28/2024 1:50 PM EDT CDU SW follow up. Patient discussed in morning rounds with CDU provider, staff development coordinator and TCC. Patient uninsured. SW reached out to [facility] account executive sales representative Christian to determine if agency received referral from [facility] [employer] (FC) to see patient/complete financial screening. Per [facility], agencyhas not received referral. SW reached out to [facility] [employer] Jose to review. After review, FC decided to refer to [facility] this afternoon. Await outcome of [facility]'s financial screening. Per CDU provider, patient may be released this afternoon. Provider concerned about patient's ability to pay for home-going meds. Good Rx card given to CDU provider who will pass on to patient. Pending outcome of [facility]'s financial screening and cost of prescriptions, patient may be eligible for medication assistance through [facility]'s Indigent Fund. SW following. [facility] HospitalSfcget47-25-8687 Hospital Discharge instructions* Discharge Instructions* Dia Gaitan, CRISTINE - 04/28/2024 10:28 AM EDT My Heart Failure Action Plan Use the below chart as a guide for daily symptom monitoring after you obtain your morning weight. My Imaging Tech: [facility] Card[facility] [phone] My Diagnosis: Heart failure with reduced ejection fraction My Ejection Fraction: ~30% in 02/2024 NORMAL 50-65% My Exercise Goal: as tolerated My Weight Goal: Standing weight day of hospital discharge Weigh yourself daily using the same scale. If you gain more than 3 pounds in 24 hours or 5 pounds in a week Call your Imaging Tech!! My Diet Goal: General diet recommendations for [...] Everywhere. * Heart Failure Discharge Instructions, Adult ([place]oz[place]) documented in this [facility]10-30-2024 Nurse Note* Jillian Ferguson RN - 04/28/2024 10:09 AM EDT Notified [facility] 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 CDU patient reported 2/10 chest pain, STAT EKG obtained. Karrie read EKG and stated it's okay, chronic findings. Administer nitroglycerin prn and morphine prn. 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 Pt receiving treatment for acute on chronic HFrEF. Pt newly diagnosed with HFrEF in 02/2024 and has been unable to attend any follow up d/t lack of insurance coverage and inability to self pay. Since diagnosis, multiple unsuccessful attempts have beenmade by this RN to connect pt with SW in the [facility] and to confirm insurance status. - Spoke [...] Practice Guidelines and references available on the [facility] resource page (Resources --> [facility] --> Heart Failure) Established Imaging Tech: None Follow up scheduled within 14 days: TBD- pending insurance/financial assistance. Recommend HF ISAAC. LVEF evaluation within the past 12 months: Yes NYHA class documentation by provider: Yes HF order set used: Yes Daily weight ordered:Yes Intake and output ordered: Yes HF education added: Yes HF care plan added: Yes Class 1 HFrEF GDMT (Treatment pathway available on [employer] Heart Failure resource page) LUCRECIA/ARB/ARNI: Yes, losartan 100mg daily BB: Yes, carvedilol 6.25mg BID MRA: Yes, spironolactone 25mg daily SGLT2-I: No- if financial assistance able to be obtained for follow up and medications, recommend dapagliflozin 10mg daily (HFrEF, per last Cardiology note- probable CKD) Diuretic: Yes, 60mg IV lasix BID (CORN SHELLER 80mg furosemide daily) If pt has been [...] / present: No IV Venofer recommended: TBD CLEARANCE REP-D Appropriateness Screen (Referral pathway available on [employer] Heart Failure resource page) LVEF < 35%: Yes, pt will require LVEF reassessment after ~ 90 days of optimal GDMT +probable ischemic evaluation. 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 Pt receiving treatment for acute on chronic HFrEF. Pt newly diagnosed with HFrEF in 02/2024 and has been unable to attend any follow up d/t lack of insurance coverage and inability to self pay. Since diagnosis, multiple unsuccessful attempts have beenmade by this RN to connect pt with SW in the [facility] and to confirm insurance status. - Spoke [...] Practice Guidelines and references available on the [facility] Heart Failure resource page (Resources --> [facility] --> Heart Failure) Established Imaging Tech: None Follow up scheduled within 14 days: TBD- pending insurance/financial assistance. Recommend HF ISAAC. LVEF evaluation within the past 12 months: Yes NYHA class documentation by provider: Yes HF order set used: Yes Daily weight ordered:Yes Intake and output ordered: Yes HF education added: Yes HF care plan added: Yes Class 1 HFrEF GDMT (Treatment pathway available on [facility] Heart Failure resource page) LUCRECIA/ARB/ARNI: Yes, losartan 100mg daily BB: Yes, carvedilol 6.25mg BID MRA: Yes, spironolactone 25mg daily SGLT2-I: No- if financial assistance able to be obtained for follow up and medications, recommend dapagliflozin 10mg daily (HFrEF, per last Cardiology note- probable CKD) Diuretic: Yes, 60mg IV lasix BID (CORN SHELLER 80mg furosemide daily) If pt has been [...] / present: No IV Venofer recommended: TBD CLEARANCE REP-D Appropriateness Screen (Referral pathway available on [facility] Heart Failure resource page) LVEF < 35%: Yes, pt will require LVEF reassessment after ~ 90 days of optimal GDMT +probable ischemic evaluation. Cardiac Rehab - N/A, uninsured Heart Failure Triggers for Consult to Palliative Care > 2 admissions in the last 12 months for ADHF: Yes [facility] HospitalZeuqex29-71-2068 [facility]10-30-2024 Consult note* Rupesh Troy MD - 04/28/2024 8:42 AM EDTAssociated Order(s): IP CONSULT TO CARDIOLOGY [facility] [place] [facility] Cardiology /Electrophysiology Consult Note Reason for Consult/Chief Complaint: CHF Referring provider: Dr. Maya Established bottom precipitator operator: None History of Present Illness: Carlo [...] D-dimer, normal troponin[place] [address] pg/mL. CTA was negative for PE, but [...] with cardiology outpatient--would like to establish near [place], [place]--and does not have PCP due to lack of health insurance and is currently in process of trying to enroll into Medicaid. Assessment/Plan HF NYHA Class [] I [x] II [] III [] IV []Unable to assess Heart failure with reduced ejection fraction Hypertension; uncontrolled - Echo from 02/29/2024 shows EF 30%, global hypokinesis, diastolic dysfunction, normal [place] [address] pg/mL (~9,000 during 02/2024 admission) and pleural [...] thereafter - Establish with outpatient cardiology (near [place]). Social work following to help patient acquire [...] 04/28/2024 4:05 PM EDT Associated attestation - Segrei Astudillo MD - 04/28/2024 4:05 PM EDT [...] of Cardiovascular Disease, Division of Heart Failure [facility] [place] 4:05 PM 04/28/24 [facility] Work Phone: 1(590) 472-606010-30-2024 Plan of care note* Care Plan - [...] Recommendations to address these barriers include n/a. [facility] [id number] Emergency department Note* Regina Hogan RN - 04/28/2024 6:51 AM EDT [facility]. [facility] HospitalNxjhrf99-33-7358 Emergency department Note* Regina Hogan RN - 04/28/2024 6:51 AM EDT Phoned [facility] CDU. Hand off report given. * Regina Hogan RN - 04/28/2024 6:37 AM EDT Phoned [facility] ED. No answer. * Regina Hogan RN [...] of evaluation: 04/28/2024 ED Provider: Juan Carlos eL MD CHIEF COMPLAINT No chief complaint on [...] 30 min Stress: Stress Concern Present (02/28/2024) [place] [facility] Occupational Health - Occupational Stress Questionnaire Feeling of Stress : To some extent Social Connections: Unknown (02/28/2024) Social Connection and Isolation Panel [NHANES] Frequency of Communication with Friends and Family: Once a week Frequency of Social Gatherings with Friends and Family: Once a week Attends [employer] [facility]: Patient unable to answer Active Member [...] able to answer questions and follow commands receivables specialist II-XII normal Normal 5/5 strength and normal [...] In compliance with this authorization, please visit www.fda.gov/media/210617/download or www.fda.gov/media/768089/download to access the applicable information sheets. GROUP [...] DIFFERENTIAL DIAGNOSIS/MDM: Vitals: Vitals: 04/28/24 0239 04/28/2443 04/28/2445 BP: (!) 130/102 (!) 159/114 BP Location: [...] injection 4 mg (4 mg IntraVENous Given 04/28/243) sodium chloride 0.9 % bolus 1,000 mL (0 mL IntraVENous Stopped 04/28/24534) ketorolac (Toradol) injection 15 mg (15 mg IntraVENous Given 04/28/24331) furosemide (Lasix) injection 60 mg (60 mg IntraVENous Given 04/28/2449) morphine injection 4 mg (4 mg IntraVENous [...] of the abdomen. This gives him a [facility] thoracic aortic dissection screening score of 0 [...] external records from past medical records in [facility] to obtain collateral history. The patient [...] or greater than the risk of discharge. [id number] SHARED DECISION MAKING: I discussed my risk assessment with the patient. The patient understands and consents to the risk of disposition/plan, as well as the risk of uncertainty in estimating outcomes. [id number] PROCEDURES: Unless otherwise noted below, none Procedures EKG: I read and interpreted this EKG. My interpretation can be found in the [employer] EKG system. EKG shows NSR, LAD, normal NM QRS and QTC intervals. LVH. ST depressions [...] 0.020 [place] [address]. This is higher than the patient's other [...] labs done upon arrival. Patient placed on awake overnight monitor. documented in this [facility]10-30-2024 Emergency department Note* Regina Hogan RN - 04/28/2024 6:37 AM EDT Phoned [facility] ED. No answer. [facility] HospitalByzxbu01-23-6952 Emergency department Note* Regina Hogan RN - 04/28/2024 6:33 AM EDT Patient signed transfer papers and instructions given to patient and significant other. Patient traveling by private vehicle. IV wrapped in coban. [facility] HospitalJnwkvb83-76-9707 Emergency department Triage note* Regina Hogan RN [...] labs done upon arrival. Patient placed on awake overnight monitor. T [id number] Physician Emergency department Note* Juan Carlos Le [...] 30 min Stress: Stress Concern Present (02/28/2024) [place] [facility]ational [facility] - Occupational Stress Questionnaire Feeling of Stress : To some extent Social Connections: Unknown (02/28/2024) Social Connection and Isolation Panel [NHANES] Frequency of Communication with Friends and Family: Once a week Frequency of Social Gatherings with Friends and Family: Once a week Attends [facility] [facility]: Patient unable to answer Active Member [...] able to answer questions and follow commands receivables specialist II-XII normal Normal 5/5 strength and normal [...] In compliance with this authorization, please visit www.fda.gov/media/000338/download or www.fda.gov/media/713551/download to access the applicable information sheets. GROUP [...] 4 mg (4 mg IntraVENous Given 04/28/24 033) ondansetron (Zofran) injection 4 mg (4 mg [...] of the abdomen. This gives him a [facility] thoracic aortic dissection screening score of 0 [...] external records from past medical records in [facility] to obtain collateral history. The patient [...] or greater than the risk of discharge. [id number] SHARED DECISION MAKING: I discussed my risk assessment with the patient. The patient understands and consents to the risk of disposition/plan, as well as the risk of uncertainty in estimating outcomes. [id number] PROCEDURES: Unless otherwise noted below, none Procedures EKG: I read and interpreted this EKG. My interpretation can be found in the [employer] EKG system. EKG shows NSR, LAD, normal NM QRS and QTC intervals. LVH. ST depressions [...] 0.020 [place] [address]. 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 Pt with a new diagnosis of HFrEF in 02/2024 and has not been able to follow up with Cardiology d/t lack of insurance and inability to self-payfor appt. Per pt report, MD application was filled out mid-February. HFN attempted previously to get pt an appt with the [facility] to work with SW and pt declined. Left HIPAA compliant requesting a return call to discuss. 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 Pt with a new diagnosis of HFrEF in 02/2024 and has not been able to follow up with Cardiology d/t lack of insurance and inability to self-payfor appt. Per pt report, MD application was filled out mid-February. HFN attempted previously to get pt an appt with the [facility] to work with SW and pt declined. Left HIPAA compliant requesting a return call to discuss. documented in this [facility]10-16-2024 Telephone encounter Note* Telephone Encounter - Sangeeta Sandhu - 04/14/2024 9:30 AM EDT LMOM requesting return call, gave [facility] phone number also [facility] [id number] Miscellaneous Notes* Telephone Encounter - Sangeeta Sandhu - 04/14/2024 9:30 AM EDT LMOM requesting return call, gave [facility] phone number also * Telephone Encounter - Sangeeta Sandhu - 03/31/2024 9:23 AM EDT Lmom return call, if no insurance yet may be seen at [facility] with Dr Conklin. Will give number [phone] if needed * Telephone Encounter - Jeffrey Conklin MD - 03/16/2024 10:58 AM EDT Will call back documented in this [facility]10-02-2024 Telephone encounter Note* Telephone Encounter - Sangeeta Sandhu - 03/31/2024 9:23 AM EDT Lmom return call, if no insurance yet may be seen at [facility] with [facility] Conklin. Will give number [phone] if needed [place] [id number] Miscellaneous Notes* Telephone Encounter - Sangeeta Sandhu - 03/31/2024 9:23 AM EDT Lmom return call, if no insurance yet may be seen at [facility] with Dr Conklin. Will give number [phone] if needed * Telephone Encounter - Jeffrey Conklin MD - 03/16/2024 10:58 AM EDT Will call back documented in this [facility]09-17-2024 Telephone encounter Note* Telephone Encounter - Jeffrey Conklin MD - 03/16/2024 10:58 AM EDT Will call back [facility] Work Phone: 1(340) 180-816409-17-2024 Miscellaneous Notes* Telephone Encounter - Jeffrey Conklin MD - 03/16/2024 10:58 AM EDT Will call back documented in this [facility]09-09-2024 Telephone encounter Note* Telephone Encounter - YAZAN Danielle - 03/08/2024 2:40 PM EDT [facility] reached out to schedule Hospital Follow up appointment. [facility] offered assistance with financial assistance program until his Medicaid was active. Pt declined, stating he wants to wait untilhis Medicaid is active before scheduling a follow up. [facility] HospitalSuztbi19-43-8366 Miscellaneous Notes* Telephone Encounter - YAZAN Danielle - 03/08/2024 2:40 PM EDT [facility]K reached out to schedule Hospital Follow up appointment. [facility] SWK offered assistance with financial assistance program until his Medicaid was active. Pt declined, stating he wants to wait untilhis Medicaid is active before scheduling a follow up. * Telephone Encounter - Dia Gaitan RN - 03/08/2024 11:06 AM EDT model engine mechanic: Noted pt re-admitted 03/05-03/07 for ADHF. Call to pt this AM to discuss insurance coverage- was notified by [facility] office that when attempting to schedule, pt reported being self pay. Appt was not able to be scheduled. At time of this phone call, pt in the car on the way to [place] [employer] and [facility] to see if currently does have active Medicaid, and if not, to complete application. Pt to return call to [facility] with update. 13:25: Call back from pt- no current Medicaid coverage, application submitted today. Pt is unable to pay out of pocket for visit with Mona Marcano NP with Cardiology on 03/11- [facility] cancelled appt. Pt also has no PCP. Pt ok with chart being forwarded to [facility] to schedule and appt to establishcare and for SW to review. If able, pt should be seen within 14 days of hospital discharge in the [facility]. Once insurance obtained, pt should be scheduled in the [facility]. documented in this encounterSNorwalk Memorial HospitalDgnqkw39-74-9377 Telephone encounter Note* Telephone Encounter - Dia Gaitan RN - 03/08/2024 11:06 AM EDT model engine mechanic: Noted pt re-admitted 03/05-03/07 for ADHF. Call to pt this AM to discuss insurance coverage- was notified by [facility] office that when attempting to schedule, pt reported being self pay. Appt was not able to be scheduled. At time of this phone call, pt in the car on the way to [place] [employer] and [employer] to see if currently does have active Medicaid, and if not, to complete application. Pt to return call to [facility] with update. 13:25: Call back from pt- no current Medicaid coverage, application submitted today. Pt is unable to pay out of pocket for visit with Mona Marcano NP with Cardiology on 03/11- [facility] cancelled appt. Pt also has no PCP. Pt ok with chart being forwarded to [facility] to schedule and appt to establishcare and for SW to review. If able, pt should be seen within 14 days of hospital discharge in the [facility]. Once insurance obtained, pt should be scheduled in the [facility]. [facility] HospitalGpodqp07-11-2522 Hospital Discharge instructions* Discharge Instr - Activity* [...] 6.4 oz) Mental Status: {ROBERT Patient Mental Status:55868} IV Access: {ROBERT IV Access:56394} Nursing Mobility/ADLs: Walking {EMELY ADL:67369::Independent} Transfer {EMELY ADL:77366::Independent} Bathing {EMELY ADL:18242::Independent} Dressing {EMELY ADL:21970::Independent} Toileting {EMELY ADL:86891::Independent} Feeding {EMELY ADL:53845::Independent} Trim Machine Operator {EMELY ADL:15131::Independent} Med Delivery {yes/no:21199} Wound Care Documentation and Therapy: Elimination: Continence: Bowel: {yes/no:13665} Bladder: {yes/no:97158} Urinary Catheter: {ROBERT Urinary Catheter:41252} Colostomy/Ileostomy/Ileal Conduit: {YES / NO:} Date of Last BM: Intake/Output Summary (Last 24 hours) at 03/07/2024 1326 Last data filed at 03/07/2024 0634 Gross per 24 hour Intake 250 ml Output 1125 ml Net -875 ml I/O last 3 completed shifts: In: 550 (6.5 mL/kg) [P.O.:550] Out: 2375 (28.1 mL/kg) [Urine:2375 (0.8 mL/kg/hr)] Weight: 84.5 kg Safety Concerns: {ROBERT Safety Concerns:51543} Impairments/Disabilities: {ROBERT Impairments/Disabilities:75065} Nutrition Therapy: Current Nutrition Therapy: {ROBERT Diet List:42294} Routes of Feeding: {routes of feedin} Liquids: {liquid consistency:04561} Daily Fluid Restriction: {daily fluid restriction:29405} Last Modified Barium Swallow with Video (Video Swallowing Test): {done not done:50468} Treatments at the Time of Hospital Discharge: Respiratory Treatments: Oxygen Therapy: {Therapy; copd oxygen:65430} Ventilator: {ROBERT Ventilator:14487} Rehab Therapies: {GEN THERAPY DISCIPLINE SCAL:4253272} Weight Bearing Status/Restrictions: {POD WEIGHT BEARIN} Other Medical Equipment (for information only, NOT a DME order): {Assistive Devices DME:32348} Other Treatments: Patient's personal belongings (please select all that are sent with patient): {ROBERT Patient Belongings:71893} RN SIGNATURE: {E-signature:17658} CASE MANAGEMENT/SOCIAL WORK SECTION Inpatient Status Date: Discharging to Facility/ Agency Name: Address: Phone: Fax: Dialysis Facility (if applicable) Name: Address: Dialysis Schedule: Phone: Fax: [employer]/Ebd Teacher signature: {E-signature:88358} PHYSICIAN SECTION Name: Carlo Medina Prognosis: {Rehab Prognosis:64013} Condition at Discharge: {Patient Condition:09343} Rehab Potential (if transferring to Rehab): {Rehab Prognosis:27207} Recommended Labs or Other Treatments After Discharge: The individual is being admitted to a nursing facility directly from an [facility] or a unit of a [facility] that is not operated by or licensed by [facility] under section 5119.14 or 5160-3-15.1 5 The individual requires the level of services provided by a nursing facility for the condition for which he or she was treated in the hospital and, Physician Certification: I certify the above information and transfer of Carlo Medina is necessary for the continuing treatment of the diagnosis listed and that he requires {ROBERT Level of Care:42559} for {greater less than:02901} 30 days. Update Admission H&P: {ROBERT Changes in H&P:58903} PHYSICIAN SIGNATURE: {E-signature:42256} documented in this [facility]09-08-20[facility] Consult note* Tahmina Berg RD - [...] +appetite/ tolerating meals at this time. Diet Flight Purser to monitor and follow up Tahmina Berg RD Contact Number: *[phone] or via Secure Chat [facility] HospitalYxaaax77-43-2210 Consult note* Tahmina Berg RD - 03/07/2024 [...] +appetite/ tolerating meals at this time. Diet Flight Purser to monitor and follow up Tahmina Berg RD Contact Number: *[phone] or via Secure Chat * Jeffrey Conklin MD - 03/06/2024 1:11 PM EDTAssociated Order(s): IP CONSULT TO CARDIOLOGY Images from the original note were not included. [facility] CARDIAC PROGRESSIVE CARE UNIT [address] [facility] [id number] Dept: [phone] 44-year-old man seen for newly diagnosed heart [...] is generally preferred. RBC documented in this [facility]09-08-2024 [facility] 03-07-2024 Hospital course Narrative* Guadalupe Celaya MD [...] Your Medications These medications [facility] to [facility] [id number] - [place], [place] - [address] [address] carvedilol 6.25 MG tablet furosemide 80 MG tablet losartan 100 MG tablet rosuvastatin 10 MG tablet spironolactone 25 MG tablet DIET: Adult diet Regular; Low Sodium (2 gm) ACTIVITY: No restriction. COMPLEXITY OF FOLLOW UP: [x] Moderate Complexity: follow up within 7-14 calendar days (71424) [] Severe Complexity: follow up within 7 calendar days (97875) FOLLOW UP TESTING, PENDING RESULTS OR REFERRALS [...] MD 03/07/2024, 1:09 PM documented in this [facility]09-08-2024 Plan of care note* Care Plan - Ruby Powers RN - 03/07/2024 12:18 PM EDT The patient is Moderately Stable - Low risk of patient condition declining or worsening The patient's goals for the shift include rest The clinical goals for the shift include comfort [facility] HospitalYyrvtb50-30-3461 Miscellaneous Notes* Care Plan - Ruby Powers [...] these barriers include . documented in this [facility]09-08-2024 History of Present illness Narrative* Jeffrey Conklin MD - 03/07/2024 12:04 PM EDT Images from the original note were not included. [facility] CARDIAC PROGRESSIVE CARE UNIT [address] [address] Dept: [phone] This is a 44-year-old man that we [...] go home today. RBC documented in this [facility]09-07-2024 Plan of care note* Care Plan - [...] Recommendations to address these barriers include . [facility] HospitalKludnc29-84-4782 Consult note* Jeffrey Conklin MD - 03/06/2024 1:11 PM EDTAssociated Order(s): IP CONSULT TO CARDIOLOGY Images from the original note were not included. [facility] C[facility] PRO[facility]ESS[facility] CARE UNIT [address]U [address] [facility] [address] Dept: [phone] 44-year-old man seen for newly diagnosed heart [...] a coronary CTA is generally preferred. RBC [facility] HospitalSesabp05-24-0951 History and physical note* Guadalupe Celaya MD [...] 30 min Stress: Stress Concern Present (02/28/2024) [place] [employer] - Occupational Stress Questionnaire Feeling of Stress : To some extent Social Connections: Unknown (02/28/2024) Social Connection and Isolation Panel [NHANES] Frequency of Communication with Friends and Family: Once a week Frequency of Social Gatherings with Friends and Family: Once a week Attends [employer] [facility]: Patient unable to answer Active Member [...] - DO NOT do CPR, intubation] [_] [DNR-ASSEMBLY LEAD PERSON - Comfort care only] [_] DNR form [...] Guadalupe Celaya MD Division of Hospitalist Medicine [facility] HospitalYtpauu51-74-4230 [facility]09-07-2024 History and physical note* Guadalupe Celaya MD [...] 30 min Stress: Stress Concern Present (02/28/2024) [place] [employer] - Occupational Stress Questionnaire Feeling of Stress : To some extent Social Connections: Unknown (02/28/2024) Social Connection and Isolation Panel [NHANES] Frequency of Communication with Friends and Family: Once a week Frequency of Social Gatherings with Friends and Family: Once a week Attends [employer] [facility]: Patient unable to answer Active Member [...] - DO NOT do CPR, intubation] [_] [DNR-ASSEMBLY LEAD PERSON - Comfort care only] [_] DNR form [...] Guadalupe Celaya MD Division of Hospitalist Medicine [facility] documented in this encounterSNorwalk Memorial HospitalLvxrdb87-95-8677 Emergency department Note* Pauline Martinez RN - 03/06/2024 8:23 AM EDT Called [facility] to inform of pt refusing to go by squad and wants to go private vehicle. Pauline Martinez RN 03/06/24 0824 [facility] HospitalGgjhso10-14-3844 Emergency department Note* Pauline Martinez RN - 03/06/2024 8:23 AM EDT Called [facility] to inform of pt refusing to go by squad and wants to go private vehicle. Pauline Martinez RN 03/06/2424 * Shane Stern MD - 03/05/2024 9:43 PM EDT Emergency Department Encounter [facility] ED Patient: Carlo Medina : 1980 Date [...] calf pain, he endorses recent travel to [place], denies history of DVT or PE, denies [...] with IV Lasix, plan for admission at [facility] for further management, discussed with [...] [employer] Shane Stern MD 03/06/24 0447 * Aicha Hsieh RN - 03/05/2024 9:43 PM EDT 44 m to ED c/o sob since 7pm. Pt reports he was seen at [facility] for same complaints lastweek. [...] Dias RN 03/06/24 0830 documented in this [facility] Emergency department Note* Marycarmen Dias RN - 03/05/2024 9:43 PM EDT Upon signing transfer for, pt states he was informed by prior nurse that he could be driven by private car. Pt is informed that as he is on oxygen and continuous cardiac monitoring, squad transfer isrecommended. Physician is updated and aware and now at bedside. Maryacrmen Dias RN 03/06/24 0808 [facility] HospitalNoiqmh06-26-9335 Emergency department Note* Marycarmen Dias RN - 03/05/2024 9:43 PM EDT Pt removed by physician with sats maintained. Per Dr. Julien, pt is permitted to be driven by private car. IV access maintained intact in right AC with a coban wrap Marycarmen Dias RN 03/06/24 0830 [facility] HospitalOtdaey84-11-9162 Emergency department Triage note* Aicha Hsieh RN - 03/05/2024 9:43 PM EDT 44 m to ED c/o sob since 7pm. Pt reports he was seen at [facility] for same complaints lastweek. Was d/c'd Friday with new diagnosis of CHF. Pt reports SOB improved while he was up walking. Pt arrived at 88% on rm air. Placed on 3L nc. [facility] HospitalYominf66-71-6917 Physician Emergency department Note* Shane Stern MD - 03/05/2024 9:43 PM EDT Emergency Department Encounter [facility] ED Patient: Carlo Medina : 1980 Date [...] calf pain, he endorses recent travel to [place], denies history of DVT or PE, denies [...] with IV Lasix, plan for admission at [facility] for further management, discussed with [...] [employer] Shane Stern MD 03/06/24 0447 [facility] HospitalYqotav17-89-4230 Telephone encounter Note* Telephone Encounter - Kaitlin Gonzalez LPN - 03/04/2024 10:00 AM EDT Unable to contact patient X2 [facility] HospitalVwaeiy99-88-0102 Miscellaneous Notes* Telephone Encounter - Kaitlin Gonzalez LPN - 03/04/2024 10:00 AM EDT Unable to contact patient X2 * Telephone Encounter - Kaitlin Gonzalez LPN - 03/02/2024 10:30 AM EDT S: Patient admitted to: [facility] 02/28/24 B: Discharged on : 03/01/24 A: Hospital follow up call initiated to discuss any medication changes, follow up appointments and discharge instructions: Shortness of breath R: No contact x 1 at : [phone] documented in this encounterSNorwalk Memorial HospitalTayggz76-49-6205 Telephone encounter Note* Telephone Encounter - Kaitlin Gonzalez LPN - 03/02/2024 10:30 AM EDT S: Patient admitted to: [facility] 02/28/24 B: Discharged on : 03/01/24 A: Hospital follow up call initiated to discuss any medication changes, follow up appointments and discharge instructions: Shortness of breath R: No contact x 1 at : [phone] [facility] HospitalFvzzac57-93-9082 Nurse Note* Tamiko Live RN - 03/01/2024 1:31 PM EDT Discharge instructions given to patient and questions were addressed. Encouraged patient to follow up with cardiology and new PCP scheduled with Family Medicine. [facility] HospitalBfnpnc82-52-5990 Nurse Note* Tamiko Live RN - 03/01/2024 1:31 PM EDT Discharge instructions given to patient and questions were addressed. Encouraged patient to follow up with cardiology and new PCP scheduled with Family Medicine. documented in this [facility]09[facility] History of Present illness Narrative* Radha [...] Date TSH 1.375 02/28/2024 Recent Labs 02/28/24181702/28/24 2112 02/29/24 0318 TROPONINI [...] him to establish care. Radha Parikh MD [facility] 03/01/24 1:03 PM * Mary Ellen Brito [...] headedness, and chest tightness.In the ED [facility] was found to be hypertensive 176/123, P [...] Ellen Brito MD Division of Hospitalist Medicine [facility] * Mary Ellen Brito MD - 02/29/2024 [...] headedness, and chest tightness.In the ED at [facility] was found to be hypertensive 176/123, P [...] last 72 hours. CARDIAC ENZYMES: Recent Labs 02/28/24 1818 02/28/24 2112 02/29/24 0318 TROPONINI 0.019 0.019 0.026 Procalcitonin: No [...] Brito MD Division of Hospitalist Medicine [facility] documented in this [facility]09-[facility]24 Hospital Discharge instructions* Discharge Instructions* Mary [...] Care Everywhere. * Shortness of Breath (Dyspnea) (Mozambican) * DASH Diet (Mozambican) * Heart Failure Exercise Guide ([place]ozambican) * Heart Failure With Reduced Ejection Fraction ([place]ozambican) * How to Weigh Yourself ([place]ozambican) documented in this [facility]09-02-2024 [facility] 03-01-2024 Hospital course Narrative* Mary Ellen Brito [...] headedness, and chest tightness.In the ED at [facility] was found to be hypertensive 176/123, P [...] Your Medications These medications were sent to [facility]/pharmacy #[id number] [address] clopidogrel 75 MG tablet losartan 50 MG tablet metoprolol tartrate 50 MG tablet Recommended Follow-up: Radha Parikh MD [address] [place], [place] [address] [place] [address] Follow up Please call and schedule an appointment if you have not heard back from them in a week\ Complexity of Follow up: [] Moderate Complexity: follow up within 7-14 calendar days (98983) [x] Severe Complexity: follow up within 7 calendar days (07668) Follow up Testing, Pending results or Referrals [...] Ellen Brito MD Division of Hospitalist Medicine [facility] 03/01/2024, 12:24 PM documented in this [facility]09-[facility]24 Plan of care note* Care Plan [...] Goal: Nutritional status is improving Outcome: Progressing [facility] HospitalIzdtms18-70-9154 Miscellaneous Notes* Care Plan - Tamiko Live [...] Limits Permission given to speak with patient account executive sales representative/caregiver as indicated: Confirmation of Payer with patient/family: No Payer Name: Self Pay - emailed Patient [employer] to be sure they have started a Medicaid isaac for patient [place]: No Confirmation of Primary Care Physician: No [...] presented with new onset SOB x6 days CORN SHELLER. Workup at outside emergency room shows cardiomegaly [...] shift include hemodynamically stable documented in this encounterSNorwalk Memorial HospitalKubmvi14-10-8759 Plan of care note* Care Plan - Nirmala Hogan RN - 03/01/2024 5:10 AM EDT The patient is Moderately Stable - Low risk of patient condition declining or worsening The patient's goals for the shift include rest The clinical goals for the shift include pt education [facility] HospitalIonhkp10-76-2466 Note* Care Coordination - Olvin York RN - 02/29/2024 7:52 PM EDT Care Managment Initial Assessment Date: 02/29/2024 Patient Name: Carlo Medina : 1980 Patient Information Source of Information: Patient Cognition/Language: WFL - Within Functional Limits Permission given to speak with patient account executive sales representative/caregiver as indicated: Confirmation of Payer [...] presented with new onset SOB x6 days CORN SHELLER. Workup at outside emergency room shows cardiomegaly [...] will continue to follow. Olvin York RN [facility] HospitalGeevmg98-02-3703 Note* Care Coordination - Olvin York RN - 02/29/2024 7:52 PM EDT Care Managment Initial Assessment Date: 02/29/2024 Patient Name: Carlo Medina : 1980 Patient Information Source of Information: Patient Cognition/Language: WFL - Within Functional Limits Permission given to speak with patient account executive sales representative/caregiver as indicated: Confirmation of Payer [...] presented with new onset SOB x6 days CORN SHELLER. Workup at outside emergency room shows cardiomegaly [...] will continue to follow. Olvin York RN [facility] HospitalPeiula38-36-5643 Plan of care note* Care Plan - Tamiko Live RN - 02/29/2024 10:33 AM EDT The patient is Moderately Stable - Low risk of patient condition declining or worsening The patient's goals for the shift include see cardiology The clinical goals for the shift include hemodynamically stable [facility] HospitalUtgysv54-57-7453 Consult note* Radha Parikh MD - 02/29/2024 [...] and now cannot drive. He lives in [facility] and is completely dependent on others [...] [facility] 02/29/24 11:39 AM [facility] HospitalHwhnmh19-97-6132 Consult note* Radha Parikh MD - 02/29/2024 [...] and now cannot drive. He lives in [facility] and is completely dependent on others [...] social issues detailed above. Radha Parikh MD [facility]Yasmany 02/29/24 11:39 AM documented in this [facility] History and physical note* Sherri Jeter MD - 02/28/2024 11:53 PM EDT History and Physical [facility] Carlo Medina : 1980 AGE 44 [...] 02/28/2024 341 QTC Interval 02/28/2024 469 P [place] 02/28/2024 59 QRS [place] 02/28/2024 -16 T Wave [place] 02/28/2024 124 NM Interval 02/28/2024 145 D-DIMER, INNOVANCE 02/28/2024 1.45 [...] QT Interval 341 QTC Interval 469 P [place] 59 QRS [place] -16 T Wave [place] 124 NM Interval 145 Impression Sinus tachycardia Probable left [...] pharmacologic and mechanical contraindicated 02/28/2024 Carlo Medina [id number] Any scheduled follow up appointments No future appointments. Extended Emergency Contact Information Primary Emergency Contact: Indira Medina Mobile Relation: Sister Secondary Emergency Contact: Kaitlin Hicks Mobile Relation: Significant Other Portions of this note may be electronically transcribed. Please forward a copy of this H&P to the primary care physician. [facility] Work Phone: [phone] [facility]08-31-2024 History and physical note* Sherri Jeter MD - 02/28/2024 11:53 PM EDT History and Physical [facility] Carlo Medina : 1980 AGE 44 [...] Registered Nurse: Randy Ulloa RN, starting on [facility] Feb 28, 2024 10:14 PM (Active) Registered Nurse: Nirmala Hogan RN, starting on [facility] Feb 28, 2024 10:50 PM [...] 02/28/2024 341 QTC Interval 02/28/2024 469 P [place] 02/28/2024 59 QRS [place] 02/28/2024 -16 T Wave [place] 02/28/2024 124 NM Interval 02/28/2024 145 D-DIMER, INNOVANCE 02/28/2024 1.45 [...] QT Interval 341 QTC Interval 469 P [place] 59 QRS [place] -16 T Wave [place] 124 NM Interval 145 Impression Sinus tachycardia Probable left [...] pharmacologic and mechanical contraindicated 02/28/2024 Carlo Medina [id number] Any scheduled follow up appointments No future appointments. Extended Emergency Contact Information Primary Emergency Contact: Indira Medina Mobile Relation: Sister Secondary Emergency Contact: Kaitlin Hicks Mobile Relation: Significant Other Portions of this note may be electronically transcribed. Please forward a copy of this H&P to the primary care physician. documented in this [facility] Emergency department Note* Belkys Townsend RN - 02/28/2024 9:[address] Le, pt ok to go to [facility] with IV in arm, 2 Jose EVANS aware, pt departing this facility now and instructed to go straight to [facility], as pt declined EMS transport to [facility]. 2 Jose called at this time and notified pt is on his way there. Belkys Townsend RN 02/28/242130 [facility] HospitalYphbua16-42-2588 Emergency department Note* Belkys Townsend RN - 02/28/2024 9:[address] Le, pt ok to go to [facility] with IV in arm, 2 Jose RN aware, pt departing this facility now and instructed to go straight to [facility], as pt declined EMS transport to [facility]. 2 Jose called at this time and [...] he recently drove with a friend to [employer], they did stop on the way there, [...] freeto contact the dictating provider for clarification.) iVc Loaiza MD (electronically signed) Emergency Medicine Provider Vic Loaiza MD 02/28/24 190 * Juan Carlos Le MD - 02/28/2024 5:50 PM EDT THIS NOTE CONTAINS PATIENT DISPOSITION I, DR. JUAN CARLOS LE, AM THE PAPER INSPECTOR OF RECORD. PATIENT WAS SIGNED OUT TO [...] while laying in bed. Pt drove to [facility] [employer] on 02/13 there and back in one day. Pt states he was told a long time ago that he had high blood pressure but never followed up for it or took medicine for it and hasn't been to the doctor in a long time. Pt is hypertensive, tachypneic and tachycardic at the time of triage. documented in this encounterSNorwalk Memorial HospitalJcqmic88-31-4546 Emergency department Note* Belkys Townsend RN - 02/28/2024 9:17 PM EDT Report called to 2 Jose Townsend RN 02/28/242116 [facility] HospitalAvtgld21-95-9495 NoteSinus tachycardia Probable left atrial enlargement Abnormal [...] while laying in bed. Pt drove to [email or web address] on 02/13 there and back in one day. Pt states he was told a long time ago that he had high blood pressure but never followed up for it or took medicine for it and hasn't been to the doctor in a long time. Pt is hypertensive, tachypneic and tachycardic at the time of triage. [facility] HospitalShzdgd92-81-9999 Physician Emergency department Note* Vic Loaiza MD [...] he recently drove with a friend to [place], they did stop on the way there, [...] Emergency Medicine Provider Vic Loaiza MD 02/28/241901 [employer] Phone: [phone]) 778-780308-31-2024 Physician Emergency department Note* Juan Carlos Le MD - 02/28/2024 5:50 PM EDT THIS NOTE CONTAINS PATIENT DISPOSITION I, DR. JUAN CARLOS LE, AM THE PAPER INSPECTOR OF RECORD. PATIENT WAS SIGNED OUT TO [...] chest pain Juan Carlos Le MD 02/28/242052 [facility] note* Diagnosis Shortness of breath- Primary Shortness of breath Congestive heart failure, unspecified HF chronicity, unspecified heart failure type (HCC) Positive D dimer Abnormal coagulation profile Chest pain, unspecified type Hypertension, unspecified type documented in this encounter [facility]* Diagnosis Shortness of breath- Primary Shortness of breath Acute on chronic congestive heart failure, unspecified heart failure type (HCC) Hypoxia Hypoxemia Pleural effusion Unspecified pleural effusion documented in this encounter [facility]* Diagnosis Pulmonary vascular congestion- Primary Chest pain, unspecified type Acute cough Sore throat Acute pharyngitis Positive D dimer Abnormal coagulation profile Congestive heart failure, unspecified HF chronicity, unspecified heart failure type (HCC) Pulmonary vascular congestion Orthopnea Short of breath on exertion Congestive heart failure, unspecified HF chronicity, unspecified heart failure type (HCC) documented in this encounter [facility] note* Diagnosis Metabolic acidosis- Primary Acidosis Metabolic acidosis Acidosis HFrEF (heart failure with reduced ejection fraction) (HCC) Acute cholecystitis without calculus Acute cholecystitis Moderate malnutrition (CMS/HCC) (HCC) documented in this encounter [facility]* Diagnosis Edema of left lower extremity- Primary documented in this encounter [facility]* Diagnosis Essential hypertension- Primary Unspecified essential hypertension Congestive heart failure, unspecified HF chronicity, unspecified heart failure type (HCC) Elevated liver enzymes Other nonspecific abnormal serum enzyme levels Chronic kidney disease, unspecified CKD stage documented in this encounter [facility]Eval[facility] note* Diagnosis Congestive heart failure, unspecified HF chronicity, unspecified heart failure type (HCC)- Primary documented in this encounter [facility]* Diagnosis Acute HFrEF (heart failure with [...] Pulmonary vascular congestion documented in this encounter [facility]* Diagnosis Chronic systolic heart failure (HCC)- Primary Chronic systolic heart failure Essential hypertension Unspecified essential hypertension Chronic kidney disease, unspecified CKD stage documented in this encounter [facility]* Diagnosis Acute kidney injury superimposed on CKD (HCC) (HCC)- Primary Acute kidney injury superimposed on CKD (HCC) (HCC) Transaminitis Nonspecific elevation of levels of transaminase or lactic acid dehydrogenase (LDH) History of CHF (congestive heart failure) Personal history of other diseases of circulatory system HFrEF (heart failure with reduced ejection fraction) ([facility]) documented in this encounter [facility]* Diagnosis Acute systolic heart failure (HCC)- Primary Acute systolic heart failure Essential hypertension Unspecified essential hypertension Chronic systolic heart failure (HCC) Chronic systolic heart failure Chronic kidney disease, unspecified CKD stage documented in this encounter [facility]* Diagnosis Chronic systolic heart failure (HCC)- Primary Chronic systolic heart failure documented in this encounter [facility]* Diagnosis NSTEMI (non-ST elevated myocardial infarction) (HCC)- Primary Acute myocardial infarction, subendocardial infarction, episode of care unspecified NSTEMI (non-ST elevated myocardial infarction) (HCC) Acute myocardial infarction, subendocardial infarction, episode of care unspecified Abdominal pain, unspecified abdominal location HFrEF (heart failure with reduced ejection fraction) ([facility]) Cardiorenal syndrome with renal failure, stage 1-4 or unspecified chronic kidney disease, with heart failure (HCC) Biventricular heart failure (HCC) Congestive heart failure, unspecified Chronic pulmonary embolism without acute cor pulmonale, unspecified pulmonary embolism type ([facility]) documented in this encounter [facility]* Diagnosis HFrEF (heart failure with reduced ejection fraction) (HCC)- Primary Acute HFrEF (heart failure with reduced ejection fraction) ([facility]) Essential hypertension Unspecified essential hypertension Stage 3a chronic kidney disease ([facility]) Noncompliance documented in this encounter [facility]* Diagnosis Acute kidney injury (HCC)- Primary Acute kidney injury (HCC) History of congestive heart failure Personal history of other diseases of circulatory system Bilateral lower extremity edema SCHUYLER (acute kidney injury) (HCC) Acute HFrEF (heart failure with reduced ejection fraction) ([facility]) Noncompliance Essential hypertension Unspecified essential hypertension Sinus tachycardia Other specified cardiac dysrhythmias Acute deep vein thrombosis (DVT) of lower extremity (HCC) SCHUYLER (acute kidney injury) (HCC) [facility] Diagnosis HFrEF (heart failure with reduced ejection fraction) (HCC)- Primary Essential hypertension Unspecified essential hypertension Acute deep vein thrombosis (DVT) of other specified vein of both lower extremities (HCC) [facility] note* [...] lower extremities (HCC) [facility] Diagnosis HFrEF (heart failure with reduced ejection fraction) (HCC)- Primary Essential hypertension Unspecified essential hypertension Acute deep vein thrombosis (DVT) of other specified vein of both lower extremities (HCC) Acute kidney injury superimposed on CKD (HCC) (HCC)- Primary Acute kidney injury superimposed on CKD (HCC) (HCC) Congestive heart failure, unspecified HF chronicity, unspecified heart failure type ([facility]) [facility] Diagnosis Chronic systolic heart failure (HCC)- Primary Chronic systolic heart failure Essential hypertension Unspecified essential hypertension Chronic kidney disease, unspecified CKD stage HFrEF (heart failure with reduced ejection fraction) (HCC)- Primary Essential hypertension Unspecified essential hypertension Acute deep vein thrombosis (DVT) of other specified vein of both lower extremities ([facility]) [facility] specified vein of both lower extremities (HCC) Elevated serum creatinine- Primary Other nonspecific findings on examination of blood Elevated brain natriuretic peptide (BNP) level [facility] Diagnosis Chest pain, unspecified type- Primary Nausea vomiting and diarrhea Diarrhea [facility] Diagnosis HFrEF (heart failure with reduced ejection fraction) (HCC)- Primary Pneumonia of right lower lobe due to infectious organism Hypervolemia, unspecified hypervolemia type HFrEF (heart failure with reduced ejection fraction) (HCC) Acute kidney injury superimposed on CKD (HCC) Tachycardia, unspecified Nonspecific intraventricular block Other heart block Abnormal electrocardiogram (ECG) (EKG) Cardiogenic shock ([facility]) [R57.0] Cardiogenic shock Acute deep vein thrombosis (DVT) of distal vein of lower extremity, unspecified laterality (HCC) Pneumonia of right lower lobe due to infectious organism Acute kidney injury superimposed on CKD (HCC) [facility] Cough, unspecified type- Primary Pneumonia of right lower lobe due to infectious organism [facility] Diagnosis Acute on chronic HFrEF (heart [...] duced ejection fraction) acute January 04 1:40pm [facility] Work Phone: History and physical note Author Anshul Lemus [facility] Note Date/Time January 04, 2025 2:06p m [facility] Medical Records Department [address] [place] [address] H&P Exam - Hospitalist 01/04/25 1351 MR#: [id number] Acct: [id number] Name: CARLO MEDINA Rep #:[id number] : 1980 44 From: Anshul Lemus DO PCP: Care Physician,No Primary Status :ADM IN Location: [facility] [id number] HPI - General General Date of [...] time. Has had numerous hospitalizations over at [facility] and recently was over at [facility] in September. It is documented throughout his charts at [facility] as well as [facility] that he has a history of [...] still wants time to think about it. [facility] Medical History (Updated 01/04/25 @ 14:00 by [...] % (Auto) 59.5, Lymph % (Auto) 30.6, [place] % (Auto) 9.1, Eos % (Auto) 0.3, [...] Sens 45 H, [place] [address] H, Total Protein 6.8, Albumin 3.6, Globulin 3.2, Lipase 15 01/04/25 11:20: Troponin T Hi Sens 2 Hr 42 H EKG Initial EKG: Attestation: I personally reviewed and interpreted this EKG as follows: EKG Rhythm Intrepretation: Sinus Bradycardia Imaging Radiology Impression Chest X-Ray 01/04/25 08:25 IMPRESSION: Bibasilar atelectasis or pneumonia. Reading Location: [facility] Abdomen Ultrasound 01/04/25 11:03 IMPRESSION: 1. Ascites. 2. Fatty infiltration of the liver. Reading Location: [facility] Assessment & Plan Assessment/Plan (1) HFrEF (heart [...] History of noncompliance: Per previous documentation from [facility] as well [facility]. Patient is steadfast in regards to [...] his cardiomyopathy. Charges/Coding Visit Charges Inpatient E&M: 83937 Init Hosp L3 01/04/25 1406 <Electronically signed by Anshul Lemus DO> Cosigner Signature (if applicable): CC: Dr. Anshul Lemus DO; No Primary Care Physician~ Signed [facility] Work Phone: Hospital Discharge instructions* Attachments The following attachments cannot be sent through Care Everywhere. * Heart Failure Discharge Instructions, Adult ([place]) [facility]* Phase II, Outpatient Cardiac Rehab Location: None Selected [facility] Work Phone: Hospital Discharge instructionsAdditional Instructions You [...] is larger that perform those procedures including [facility], [facility], [facility], [facility]. If you have issues in regards to you passing out and having no recollection of the event, irregular heartbeat, call 911 and go to the nearest emergency room. As we discussed, you are at high risk of because of your weak heart and your abnormal heart rhythm (second-degree heart block Mobitz type II).[facility] Work Phone: Rexwqa for referral (narrative)No reason for referral information [facility] Work Phone: Revbvh for visit Narrative* Auth/Cert (Routine) Specialty Diagnoses / Procedures Referred By Contac t Referred To Contact Diagnoses Orthopnea Sore throat Positive D dimer Pulmonary vascular congestion Short of breath on exertion Chest pain, unspecified type Acute cough Congestive heart failure, unspecified HF chronicity, unspecified heart failure type (HCC) Procedures . Alonzo Aguilar MD [address] [place] [address] Phone: tel: fax: [facility] Clinical Decision Unit [address] [address] Phone: tel: Referral ID Status Reason Start Date Expiration Date Visits Re quested Visits Authorized [id number] 1 1 [facility] Advance Directives Date Activated Date Inactivated Comments 10/18/2024 5:06 [...] Do you have a Healthcare Power of [employer] Officer? No January 04, 2025 7:54am Advance Directive Response Recorded Date/ Time Do you have a Healthcare Power of [employer] Officer? No January 04, 2025 2:45pm Advance Directive Response Recorded Date/ Time Do you have a Healthcare Power of [employer] Officer? No January 29, 2025 8:30am Do you have a Healthcare Power of [employer] Officer? No January 04, 2025 2:45pm Advance Directive Response Recorded Date/ Time Do you have a Healthcare Power of [employer] Officer? No January 29, 2025 8:30am Do you have a Healthcare Power of [employer] Information [employer] Officer? No January 04, 2025 2:45pm Do you have a Healthcare Power of [employer] Officer? No 2025 5:54pm Summary Purpose Family History Relationship Condition Age at Onset Recorded Date/T [...] BLOATING January 29, 2025 7:4 9am S/P [facility] 01/10 CHF Exacerbation January 2:34pm Chief Complaint Admit Date CHF EXACERBATION January [...] BLOATING January 29, 2025 7:4 9am S/P [facility] 01/10 CHF Exacerbation January 2:34pm CHF 2025 10 :01pm Reason for Visit Admit Date CKD stage 3b, GFR 30-44 ml/min January 04, 2025 1:40pm Heart block January 04, 2025 1:40p m HFrEF (heart failure with reduced ejecti on fraction) January 04, 2025 1:40pm Hypokalemia January 04, 2025 1:40p m Elevated bilirubin January 04, 2025 1:40p m CKD stage 3b, GFR 30-44 ml/min February 102024 2:34pm Heart block February 10, 2025 2: 34pm HFrEF (heart failure with reduced ejecti on fraction) February 10, 2025 2:34pm Abdominal ascites 2025 10 :01pm Chronic anticoagulation February 13 10:01pm CKD stage 3b, GFR 30-44 ml/min February 132024 10:01pm HFrEF (heart failure with reduced ejecti on fraction) 2025 10:01pm Hyperbilirubinemia 2025 10 :01pm Hypoxia 2025 10 :01pm Medical non-compliance 2025 10:01pm Respiratory insufficiency February 13, 2 025 10:01pm Chronic atrial fibrillation 2025 10:01pm Additional Source Comments Reason for Visit (unrecogniz ed section and content) Reason Comments Shortness of Breath Specialty Diagnoses / Procedures Referred By Contac t Referred To Contact Diagnoses Shortness of breath Positive D dimer Chest pain, unspecified type Hypertension, unspecified type Congestive heart failure, unspecified HF chronicity, unspecified heart failure type (HCC) Procedures [id number] of breath Sherri Jeter MD [address] [place] [address] Sb 2e Cardiac Pcu [address] [place] [address] Referral ID Status Reason Start Date Expiration Date Visits Re quested Visits Authorized [id number] 1 1 Reason Onset Date Comments Hospital Follow-up 03/02/2024 Specialty Diagnoses / Procedures Referred By Contac t Referred To Contact Diagnoses Shortness of breath Procedures sob Helder Pozo MD [address] [place] [address] [facility] Emergency Dept [address] [place] [address] Referral ID Status Reason Start Date Expiration Date Visits Re quested Visits Authorized [id number] 1 1 Reason Comments Shortness of Breath Since 7pm Specialty Diagnoses / Procedures Referred By Contac t Referred To Contact Diagnoses Shortness of breath Procedures sob Helder Pozo MD [address] [place] [address] [facility] Emergency Dept [address] [place] [address] Reason Onset Date Comments Care Coordination 03/08/2024 [...] HFrEF (heart failure with reduced ejection fraction) ([facility]) Procedures . Mary Ellen Brito MD [address] [place] [address] Phone: tel: fax: [facility] Cardiac Progressive Care Unit PCU 2E [address] [place] [address] Phone: tel: Referral ID Status Reason Start Date Expiration Date Visits Re quested Visits Authorized [id number] 1 1 Reason Comments Leg Swelling BLE [...] failure (HCC) Procedures - Serg Celaya MD [address] [place] [address] Phone: tel: fax: [facility] Cardiac Progressive Care Unit U [address]E [address] [place] [address] Phone: tel: Referral ID Status Reason Start Date Expiration Date Visits Re quested Visits Authorized [id number] 1 1 Reason Onset Date Comments Hospital Follow-up 06/24/2024 Reason Onset Date Comments Hospital Follow-up 06/22/2024 Reason Comments Follow-up Reason Comments Abdominal Pain Shortness of Breath Patient reports he h as a history of heart disease and stage 3 kidney disease. Patient reports shob started last pm. 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 Specialty Diagnoses / Procedures Referred By Contac t Referred To Contact Diagnoses Transaminitis History of CHF (congestive heart failure) Acute kidney injury superimposed on CKD (HCC) (HCC) Procedures . Ofelia Villalobos MD [address] [place] [address] Phone: tel: fax: [facility] Cardiac Thoracic Vascular Intensive Care Unit CTV ICU T1 [address] [place] [address] Phone: tel: Referral ID Status Reason Start Date Expiration Date Visits Re quested Visits Authorized [id number] 1 1 Reason Comments Hospital Follow-up Cardiomyopathy [...] failure (HCC) Procedures . Rafa Samuel MD [address] [place] [address] Phone: tel: fax: [facility] Cardiac Progressive Care Unit U [address]E [address] [place] [address] Phone: tel: Referral ID Status Reason Start Date Expiration Date Visits Re quested Visits Authorized [id number] 1 1 Reason Onset Date Comments Hospital Follow-up 07/19/2024 Reason Onset Date Comments Appointment Request 07/23/2024 Reason Onset Date Comments Results 07/23/2024 Worsening renal function, hyperkalemia, heart failure Reason Comments Shortness of Breath Abdominal Pain Specialty Diagnoses / Procedures Referred By Contac t Referred To Contact Diagnoses Acute kidney injury (HCC) Procedures . Rafa Samuel MD [address] [place] [address] Phone: tel: fax: [facility] ED [address] [place] [address] Phone: tel: Referral ID Status Reason Start Date Expiration Date Visits Re quested Visits Authorized [id number] 1 1 Reason Onset Date Comments Hospital Follow-up 08/02/2024 Reason Comments New Patient Referred by Dr Jarett ford Congestive Heart Failure Echo pending 08/30/24 Hospital Follow-up 6 admission since g 2023 Reason Comments Chest Pain Patient [...] (HCC) (HCC) Procedures . Nghia Webb MD [address] [place] [address] Phone: tel: fax: [facility] ED [address] [facility] [place] [address] Phone: tel: Referral ID Status Reason Start Date Expiration Date Visits Re quested Visits Authorized [id number] 1 1 Reason Comments Follow-up Reason Comments [...] organism Fluid overload, unspecified Procedures NA [facility] [address] [place] [address] Phone: tel: [facility] [address] [place] [address] Phone: tel: Referral ID Status Reason Start Date Expiration Date Visits Re quested Visits Authorized [id number] 3 3 Reason Comments Hospital follow-up HF [...] Diagnoses Pneumonia, unspecified organism Procedures NA [facility] [address] [place] [address] Phone: tel: [facility] [address] [place] [address] Phone: tel: Referral ID Status Reason Start Date Expiration Date Visits Re quested Visits Authorized [id number] 3 3 Reason Comments Hospital follow-up Transitional [...] 0812 (Given - Provider: Tamiko Live RN) enoxaparin [...] Meek RN) 1000 (Given - Provider: Ruby Powers RN) furosemide (Lasix) injection 40 mg (COMPLETED) 40 mg, IntraVENous, Once, On 03/06/24 at 0005, For 1 dose 0009 (Given - Provider: Aicha Hsieh, CRISTINE) furosemide (Lasix) injection 40 mg (CANCELED) 40 [...] Patel RN) 1000 (Given - Provider: Ruby Powers RN) furosemide (Lasix) tablet 80 mg 80 mg, Oral, Daily, First dose on 03/07/24 at 1215 1215 (Not Given - Provider: Ruby Powers RN - Reason: Patient/family refused - Comment: Will take at home) losartan (Cozaar) tablet 100 mg 100 mg, Oral, Daily, First dose (after last modification) on 03/07/24 at 0900 1001 (Given - Provider: Ruby Powers RN) losartan (Cozaar) tablet 50 mg (CANCELED) 50 [...] per episode. 2203 (Given - Provider: Aicha Hsieh, CRISTINE) rosuvastatin (Crestor) tablet 10 mg 10 mg, [...] Other - Comment: See previous administration from [place] [facility]) furosemide (Lasix) tablet 80 mg 80 mg, Oral, Daily, First dose on Fri04/28/24 at 0900, On hold since Fri04/28/2024 at 0753 until manually unheld 0753 (Held by provid er - Provider: Juan Maya APRN - NURSE ADVISOR - Reason: Other)0900 (Dose Auto Held)1706 (Unheld [...] - Comment: okay to administer per 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) naloxone (Narcan) injection 0.4 mg 0.4 mg, IntraVENous, Every 5 min PRN, opioid reversal, respiratory depression, Starting on Fri04/28/24 at 1005, +++ For RR <10, pinpoint pupils, over sedation for opioid reversal - MUST notify interventionist provider immediately after first dose, may give [...] Jackson RN) 0857 (Given - Provider: Kira Santos, CRISTINE)1758 (Given - Provider: Kira Santos RN) 0800 [...] Hernandez RN) 0900 (Given - Provider: Kira Santos, CRISTINE)1400 (Not Given - Provider: Kira Santos RN - Reason: NPO)2100 (Not Given - Provider: Jennifer Machado RN - Reason: Patient/family refused) 0850 (Given - Provider: More Rojas, CRISTINE)1400 (Not Given - Provider: More Rojas RN - Reason: Patient/family refused) isosorbide dinitrate (Isordil) tablet 20 mg 20 mg, Oral, 3 times daily, First dose on Fri05/28/24 at 1600 0945 (Given - Provider: King Jackson RN)1604 (Given - Provider: King Jackson RN)2045 (Given - Provider: Tita Hernandez, CRISTINE) 0900 (Given - Provider: Kira Santos RN)1400 [...] 4,000 Units, Oral, Daily, First dose on 06/14/24 at 0900 0933 (Given - Provider: King [...] RN) 0931 (Given - Provider: Chloé Chilel RN)142 (Given - Provider: Chloé Chilel RN) influenza [...] Maylin Washington RN) 0930 (Given - Provider: Cholé Chilel, CRISTINE)142 (Given - Provider: Chloé Chilel RN) magnesium [...] RN)2055 (Given - Provider: Ladarius Luong RN) 0944 (Given - Provider: Anshul Hadley, CRISTINE) [...] 40 mg, Oral, Daily, First dose on 07/05/24 [...] time.) 0803 (Given - Provider: Eva Torres RN)142 (Given - Provider: Joe Hermosillo RN)2055 (Given [...] (after last modification) on 07/04/24 at 1400 1423 (Given - Provider: Joe [...] Nasal Decolonization 2204 (Given - Provider: Eugene iAken RN) 08 (Not Given - Provider: Eva [...] mEq (COMPLETED) 40 mEq, Oral, Once, On Fri07/04/24 at 1400, For 1 dose, Dissolve each [...] Luong RN) 0944 (Given - Provider: Anshul Hadley, RN) Continuous Medication Order 07/03/2024 07/04/2024 07/05/2024 [...] Anticoagulant 0817 (Given - Provider: Hortencia Pace, CRISTINE)2018 (Given - Provider: Dorothy Garcia, CRISTINE) 1028 (Given - Provider: Hortencia Pace, CRISTINE)2016 (Given - Provider: Sue Schuler RN) 0931 (Given - Provider: Pauline Schroeder RN) carvedilol (Coreg) tablet 12.5 mg (CANCELED) 12.5 mg, Oral, 2 times daily with meals, First dose (after last modification) on Fri07/15/24 at 1700 2015 (Given - Provider: Sue Schuler RN) carvedilol (Coreg) tablet 25 mg 25 [...] Pace RN) 0933 (Given - Provider: Pauline Schroeder, CRISTINE) magnesium oxide (Mag-Ox) tablet 400 mg (COMPLETED) [...] and sacubitril-valsartan. 08 (Given - Provider: Hortencia Pace, RN)2018 (Given - Provider: Dorothy Garcia, RN) sacubitril-valsartan (Entresto) 97-103 MG per tablet 1 tablet 1 tablet, Oral, 2 times daily, First dose on Benita 07/15/24 at 0900, Contraindicated in combination with LUCRECIA inhibitors. Ensure a minimum of 36 hours between any LUCRECIA inhibitor dose and sacubitril-valsartan. 1029 (Given - Provider: Hortencia Pace RN)2018 (Given - Provider: Sue Schuler, RN) 0931 (Given - Provider: Pauline Schroeder, RN) sodium bicarbonate tablet 1,300 mg 1,300 mg, Oral, 2 times daily, First dose on Fri07/12/24 at 0900 0817 (Given - Provider: Hortencia Pace, CRISTINE)2018 (Given - Provider: Dorothy Garcia, CRISTINE) 102 (Given - Provider: Hortencia Pace RN)2015 (Given - Provider: Sue Schuler, CRISTINE) 0931 (Given - Provider: Pauline Schroeder, RN) [...] Live RN) 0837 (Given - Provider: Tamiko Live, CRISTINE) magnesium oxide (Mag-Ox) tablet 400 mg 400 mg, Oral, Daily, First dose on Benita 07/29/24 at 1130 1307 (Given - Provider: Tamiko Live RN) 0837 (Given - Provider: Tamiko Live, CRISTINE) potassium chloride CR (Klor-Con M10) ER tablet [...] Oral, 2 times daily, First dose on Fri07/24/24 at 0220 0900 (Given - Provider: Phyllis [...] Zambrano RN)1343 (Given - Provider: Sonia Zambrano RN)2021 (Given - Provider: Yue Patterson RN) 1017 (Given - Provider: Sonia Zambrano RN) isosorbide dinitrate (Isordil) tablet 20 mg (CANCELED) 20 mg, Oral, 3 times daily, First dose (after last modification) on Benita 08/12/24 at 1400 0854 (Given - Provider: Sonia [...] Patterson RN) 0908 (Given - Provider: Jacque Clark, CRISTINE) magnesium sulfate IVPB premix 2,000 mg 2,000 mg, IntraVENous, at 25 mL/hr, Administer over 2 Hours, Daily, First dose on Fri08/18/24 at 0600, For 3 doses, Recommended infusion rate not to exceed 1,000 mg (milligrams) per hour. 0800 (Not Given - Provider: Sonia Zambrano RN - Reason: Patient/family refused - Comment: dr abdon cross patient refused) 0456 (Not Given - [...] dose on Fri10/05/24 at 1400, Until Discontinued 1411 (Given - Provider: Penelope Chaidez RN) 957 (Hold/Not Given - Provider: Penelope Chaidez RN [...] score 4,5,6) 2254 (Given - Provider: Ricki White, CRISTINE) diclofenac (VOLTAREN) 1 % topical GEL 2 g, Topical, EVERY 6 HOURS PRN, Starting on Fri10/05/24 at 1413, Until Discontinued, R chest wall pain oxyCODONE immediate release tablet (CANCELED) 5 mg, Oral, EVERY 6 HOURS PRN, Starting on Fri10/02/24 at 0030, Until Fri10/05/24 at 1242, Severe Pain (pain score 7,8,9,10) 1901 (Given - Provider: Stephy Quezada, CRISTINE) trimethobenzamide (TIGAN) 100 MG/ML injection 200 mg, [...] RN - Reason: Patient refused - Comment: SURGICAL ORDERLYBRANNON Laird notified) 0900 (Hold/Not Given - Provider: [...] RN - Reason: Patient refused - Comment: SURGICAL ORDERLY-VIKKI Laird notified) 0900 (Hold/Not Given - Provider: [...] Care Teams (unrecognized sec tion and content) [employer] Advisor Relationship Specialty Start Date End Date Dia Gaitan RN Registered Nurse Cardiology 03/02/24 [employer] Advisor Relationship Specialty Start Date End Date Dia Gaitan, RN Registered Nurse Cardiology 03/02/24 [employer]otive [employer] Advisor Relationship Specialty Start Date End Date Dia Gaitan, RN Registered Nurse Cardiology 03/02/24 [employer]otive [employer] Advisor Relationship Specialty Start Date End Date Dia Gaiatn, RN Registered Nurse Cardiology 03/02/24 [employer]otive [employer] Advisor Relationship Specialty Start Date End Date Dia Gaitan, RN Registered Nurse Cardiology 03/02/24 [employer]otive [employer] Advisor Relationship Specialty Start Date End Date Dia Gaitan, RN Registered Nurse Cardiology 03/02/24 [employer]otive Parts Advisor Relationship Specialty Start Date End Date Dia Gaitan RN Registered Nurse Cardiology 03/02/24 Automotive Parts Advisor Relationship Specialty Start Date End Date Dia Gaitan RN Registered Nurse Cardiology 03/02/24 [employer]otive Parts Advisor Relationship Specialty Start Date End Date Dia Gaitan, RN Registered Nurse Cardiology 03/02/24 [employer]otive [employer] Advisor Relationship Specialty Start Date End Date Dia Gaitan, RN Registered Nurse Cardiology 03/02/24 [employer]otive Parts Advisor Relationship Specialty Start Date End Date Dia Gaitan, RN Registered Nurse Cardiology 03/02/24 Automotive Parts Advisor Relationship Specialty Start Date End Date Dia Gaitan, RN Registered Nurse Cardiology 03/02/24 [employer]otive [employer] Advisor Relationship Specialty Start Date End Date Dia Gaitan, RN Registered Nurse Cardiology 03/02/24 [employer]otive [employer] Advisor Relationship Specialty Start Date End Date Dia Gaitan, RN Registered Nurse Cardiology 03/02/24 [employer]otive [employer] Advisor Relationship Specialty Start Date End Date Dia Gaitan, RN Registered Nurse Cardiology 03/02/24 [employer]otive Parts Advisor Relationship Specialty Start Date End Date Dia Gaitan, RN Registered Nurse Cardiology 03/02/24 None, Pcp [address] [place] [address] Urgent Care 06/07/24 [employer] Advisor Relationship Specialty Start Date End Date Dia Gaitan RN Registered Nurse Cardiology 03/02/24 None, Pcp [address] [place] [address] Urgent Care 06/07/24 [employer] Advisor Relationship Specialty Start Date End Date Dia Gaitan, RN Registered Nurse Cardiology 03/02/24 None, Pcp [address] [place] [address] Urgent Care 06/07/24 [employer]otive [employer] Advisor Relationship Specialty Start Date End Date Dia Gaitan, RN Registered Nurse Cardiology 03/02/24 None, Pcp [address] [place] [address] Urgent Care 06/07/24 [employer]otive [employer] Advisor Relationship Specialty Start Date End Date Dia Gaitan, RN Registered Nurse Cardiology 03/02/24 None, Pcp [address] [place] [address] Urgent Care 06/07/24 [employer]otive [employer] Advisor Relationship Specialty Start Date End Date Dia Gaitan, RN Registered Nurse Cardiology 03/02/24 None, Pcp [address] [place] [address] Urgent Care 06/07/24 [employer]otive [employer] Advisor Relationship Specialty Start Date End Date Dia Gaitan RN Registered Nurse Cardiology 03/02/24 None, Pcp [address] [place] [address] Urgent Care 06/07/24 [employer]otive [employer] Advisor Relationship Specialty Start Date End Date Dia Gaitan RN Registered Nurse Cardiology 03/02/24 None, Pcp [address] [place] [address] Urgent Care 06/07/24 [employer]otive [employer] Advisor Relationship Specialty Start Date End Date Dia Gaitan RN Registered Nurse Cardiology 03/02/24 None, Pcp [address] [place] [address] Urgent Care 06/07/24 [employer]otive [employer] Advisor Relationship Specialty Start Date End Date Dia Gaitan RN Registered Nurse Cardiology 03/02/24 None, Pcp [address] [place] [address] Urgent Care 06/07/24 Automotive Parts Advisor Relationship Specialty Start Date End Date Dia Gaitan, RN Registered Nurse Cardiology 03/02/24 None, Pcp [address] [place] [address] Urgent Care 06/07/24 Automotive Parts Advisor Relationship Specialty Start Date End Date Dia Gaitan, RN Registered Nurse Cardiology 03/02/24 None, Pcp [address] [place] [address] Urgent Care 06/07/24 Automotive Parts Advisor Relationship Specialty Start Date End Date Dia Gaitan RN Registered Nurse Cardiology 03/02/24 None, Pcp [address] [place] [address] Urgent Care 06/07/24 Automotive Parts Advisor Relationship Specialty Start Date End Date Dia Gaitan, RN Registered Nurse Cardiology 03/02/24 None, Pcp [address] [place] [address] Urgent Care 06/07/24 Automotive Parts Advisor Relationship Specialty Start Date End Date Dia Gaitan, RN Registered Nurse Cardiology 03/02/24 None, Pcp [address] [place] [address] Urgent Care 06/07/24 Earline Addison, RN Registered Nurse Tools Developer Manager 07/26/24 Automotive Parts Advisor Relationship Specialty Start Date End Date Dia Gaitan, RN Registered Nurse Cardiology 03/02/24 None, Pcp [address] [place] [address] Urgent Care 06/07/24 Earline Addison RN Registered Nurse Tools Developer Manager 07/26/24 Automotive Parts Advisor Relationship Specialty Start Date End Date Dia Gaitan RN Registered Nurse Cardiology 03/02/24 None, Pcp [address] [place] [address] Urgent Care 06/07/24 Earline Addison, RN Registered Nurse Tools Developer Manager 07/26/24 Automotive Parts Advisor Relationship Specialty Start Date End Date Dia Gaitan RN Registered Nurse Cardiology 03/02/24 None, Pcp [address] [place] [address] Urgent Care 06/07/24 Earline Addison, RN Registered Nurse Tools Developer Manager 07/26/24 Automotive Parts Advisor Relationship Specialty Start Date End Date Dia Gaitan, RN Registered Nurse Cardiology 03/02/24 None, Pcp [address] [place] [address] Urgent Care 06/07/24 Earline Addison, RN Registered Nurse Tools Developer Manager 07/26/24 Automotive Parts Advisor Relationship Specialty Start Date End Date Dia Gaitan, RN Registered Nurse Cardiology 03/02/24 None, Pcp [address] [place] [address] Urgent Care 06/07/24 Earline Addison, RN Registered Nurse Tools Developer Manager 07/26/24 Automotive Parts Advisor Relationship Specialty Start Date End Date Dia Gaitan RN Registered Nurse Cardiology 03/02/24 None, Pcp [address] [place] [address] Urgent Care 06/07/24 Earline Addison, RN Registered Nurse Tools Developer Manager 07/26/24 Automotive Parts Advisor Relationship Specialty Start Date End Date Dia Gaitan, RN Registered Nurse Cardiology 03/02/24 None, Pcp [address] [place] [address] Urgent Care 06/07/24 Automotive Parts Advisor Relationship Specialty Start Date End Date Dia Gaitan RN Registered Nurse Cardiology 03/02/24 None, Pcp [address] [place] [address] Urgent Care 06/07/24 Earline Addison, RN Registered Nurse Tools Developer Manager 07/26/24 Automotive Parts Advisor Relationship Specialty Start Date End Date Dia Gaitan, RN Registered Nurse Cardiology 03/02/24 None, Pcp [address] [place] [address] Urgent Care 06/07/24 Earline Addison, RN Registered Nurse Tools Developer Manager 07/26/24 Automotive Parts Advisor Relationship Specialty Start Date End Date Dia Gaitan, RN Registered Nurse Cardiology 03/02/24 None, Pcp [address] [place] [address] Urgent Care 06/07/24 Earline Addison, RN Registered Nurse Tools Developer Manager 07/26/24 Automotive Parts Advisor Relationship Specialty Start Date End Date Dia Gaitan, RN Registered Nurse Cardiology 03/02/24 None, Pcp [address] [place] [address] Urgent Care 06/07/24 Earline Addison, RN Registered Nurse Tools Developer Manager 07/26/24 Automotive Parts Advisor Relationship Specialty Start Date End Date Dia Gaitan, RN Registered Nurse Cardiology 03/02/24 None, Pcp [address] [place] [address] Urgent Care 06/07/24 Earline Addison, RN Registered Nurse Tools Developer Manager 07/26/24 Automotive Parts Advisor Relationship Specialty Start Date End Date Dia Gaitan RN Registered Nurse Cardiology 03/02/24 None, Pcp [address] [place] [address] Urgent Care 06/07/24 Automotive Parts Advisor Relationship Specialty Start Date End Date Dia Gaitan RN Registered Nurse Cardiology 03/02/24 None, Pcp [address] [place] [address] Urgent Care 06/07/24 Earline Addison RN Registered Nurse Tools Developer Manager 07/26/24 08/24/24 Automotive Parts Advisor Relationship Specialty Start Date End Date Dia Gaitan, RN Registered Nurse Cardiology 03/02/24 None, Pcp [address] [place] [address] Urgent Care 06/07/24 Automotive Parts Advisor Relationship Specialty Start Date End Date Yuval Gayle MD [address] [place] [address] [address] [place] [phone] PCP - General Family Medicine 08/27/24 Automotive Parts Advisor Relationship Specialty Start Date End Date Yuval Gayle MD [address] [facility] [address] PCP - General Family Medicine 08/27/24 Automotive Parts Advisor Relationship Specialty Start Date End Date Yuval Gayle MD [address] [place] [address] [place] [address] PCP - General Family Medicine 08/27/24 Automotive Parts Advisor Relationship Specialty Start Date End Date Yuval Gayle MD [address] [place] [address] [place] [address] PCP - General Family Medicine 08/27/24 Automotive Parts Advisor Relationship Specialty Start Date End Date Yuval Gayle MD [address] [place] [address] [place] [address] PCP - General Family Medicine 08/27/24 Automotive Parts Advisor Relationship Specialty Start Date End Date Yuval Gayle MD [address] [place] [address] [place] [address] PCP - General Family Medicine 08/27/24 Automotive Parts Advisor Relationship Specialty Start Date End Date Yuval Gayle MD [address] [place] [address] [place] [address] PCP - General Family Medicine 08/27/24 Automotive Parts Advisor Relationship Specialty Start Date End Date Yuval Gayle MD [address] [place] [address] [place] [address] PCP - General Family Medicine 08/27/24 Automotive Parts Advisor Relationship Specialty Start Date End Date Yuval Gayle MD [address] [place] [address] [place] [address] PCP - General Family Medicine 08/27/24 Automotive Parts Advisor Relationship Specialty Start Date End Date Yuval Gayle MD [address] [place] [address] [address] [place] [phone] PCP - General Family Medicine 08/27/24 Automotive Parts Advisor Relationship Specialty Start Date End Date Yuval Gayle MD [address] [place] [address] [place] [address] PCP - General Family Medicine 08/27/24 Automotive Parts Advisor Relationship Specialty Start Date End Date Yuval Gayle MD [address] [place] [address] [place] [address] PCP - General Family Medicine 08/27/24 Automotive Parts Advisor Relationship Specialty Start Date End Date Yuval Gayle MD [address] [place] [address] [place] [address] PCP - General Family Medicine 08/27/24 Automotive Parts Advisor Relationship Specialty Start Date End Date Yuval Gayle MD [address] [place] [address] [place] [address] PCP - General Family Medicine 08/27/24 Team [...] : January 04, 2025 Dr. Eugene Bucio , DO Other Provider Active Sta rt: January 04, 2025 Dr. Deja Gregorio MD Other Provider Active Start : January 04, 2025 Dr. Kailtin Golden MD Other Provider Active St art: January 04, 2025 Kalie Caruso , 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-C Other Provider Active Sta rt: January 04, 2025 Jennifer Santiago NP, 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-C Other Provider Active Start: January 04, 2025 [...] rt: January 09, 2025 Jennifer Santiago NP, 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-C Other Provider Active Start: January 09, 2025 IVIS Mcnair Other Provider Active Start: Donaldo [email or web address] Team Status: Active Member Role/Relationship Status Dates [...] End: January 10, 2025 Jennifer Santiago NP, 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-C Other Provider Active Start: January 04, 2025 [...] St art: January 10, 2025 Kalie Caruso NP-C Other Provider Active Sta rt: January 10, 2025 Jennifer Santiago 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, 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-C Other Provider Active Start: January 10, 2025 IVIS Mcnair Other Provider Active Start: Donaldo sharpe 2024 Team Status: Active Member Role/Relationship Status [...] February 10, 2025 End: February 10, 2025 Team Status: Active Member Role/Relationship Status Dates No Primary Care Physician Primary Care Provider Active Start: 2025 Dr. Anshul Lopez DO Emergency Provider Active Start: 2025 Dr. Eugene Alexandra DO Admit Provider Active Start: 2025 Dr. Eugene Alexandra DO Attending Provider Active Start: 2025 (unrecognized sect ion and content) No Status Records FoundNo Status Records FoundNo Status Records FoundNo Status Records FoundNo Status Records FoundNo Status Records Found INFORMATION SOURCE (unrecogn ized section and content) DATE CREATED AUTHOR 08/26/2024 [facility] DATE CREATED AUTHOR AUTHOR'S ORGANIZ ATION 10/11/2024 [facility] DATE CREATED AUTHOR AUTHOR'S ORGANIZ ATION 01/22/2025 [facility] DATE CREATED AUTHOR AUTHOR'S ORGANIZ ATION 02/07/2025 [facility] DATE CREATED AUTHOR AUTHOR'S ORGANIZ ATION 02/07/2025 [facility] DATE CREATED AUTHOR AUTHOR'S ORGANIZ ATION 02/12/2025 [facility] Source Comments (unrecognize d section and content) In the event this informatio n is protected by the Federal Confidentiality of Alcohol and Drug Abuse Patient Records regulations: The Federal rules restrict any use of the information to criminally investigate or prosecute any alcohol or drug abuse patient.[facility] the event this information is protected by the Federal Confidentiality of Alcohol and Drug Abuse Patient Records regulations: The Federal rules restrict any use of the information to criminally investigate or prosecute any alcohol or drug abuse patient.[facility] Goals (unrecognized section and content) Goals [...] BE BASED ON THE PRIMARY CLINICAL RECORDS. [facility]. provides no warranty or guarantee of the accuracy or completeness of information in this document.
[2025-02-13] MEDS: Albumin Human 25% (100 mL) 25 GM/100 ML BAG IV (23:46)
[2025-02-14] VITALS (29 sets, daily range): BP systolic 39–124; BP diastolic 26–103; PULSE 95–115; RESP 16–31; TEMP 36.4–36.9; O2SAT 68–100; BMI 22.7; BMI 22.8
[2025-02-14] MEDS: 0.9% Saline Lock 10 ML Syringe IV (00:05)
[2025-02-14] MEDS: 0.9% Normal Saline (250mL Bag) 250 ML 15 ML IV (01:38)
[2025-02-14] MEDS: Pantoprazole Sodium 40 MG in 0.9% Normal Saline (100mL MB+) 100 ML 330 MG IV (01:39)
[2025-02-14] MEDS: Piperacil/Tazobactam 2,250 MG in 0.9% Normal Saline (50mL MB+) 50 ML 100 MG IV (01:39)
--- NOTE | 2025-02-14 02:34 | NURSING ---
ABG ordered by CRISTINE Yan. Unable to obtain an accurate spO2 reading, respiratory therapy aware. Blood pressure reading is inconsistent. One will be 39/26 and the next will be 118/87. Multiple RN's tried to obtain manual pressures. Considered placing an arterial line. Spoke with Dr Alexandra in depth about patients status and that he is refusing interventions. Dr Alexandra does not believe the patient's blood pressure is accurate. This RN will continue to monitor. Bladder scan revealed 1,135 cc of urine. Pt refusing agustin catheter, ABG draw, and art line placement. This RN educated pt extensively about risks of refusing interventions and treatments. Dr. Alexandra came to bedside to speak with patient in hopes he would understand the seriousness of his condition. Pt still refusing care at this time.
[2025-02-14 04:41] LABS: Hematocrit 35.8 % (40-54); Hemoglobin 11.3 g/dL (13.0-16.5); Immature Granulocytes Count 0.030 X10^3/uL (0.0-0.0); Mean Corp Hgb Conc 31.6 g/dL (32-36); Mean Corpuscular Volume 104.7 fL (80-94); Mean Platelet Vol. 10.6 fl (6.2-12.0); NRBC Flagged by Analyzer 0 % (0-5); Platelet Count 228 K/mm3 (150-450); RBC Distribution Width CV 16.3 % (11.6-14.6); RBC Distribution Width SD 61.9 fl (35.1-43.9); Red Blood Count 3.42 M/mm3 (4.6-6.2); White Blood Count 7.0 K/mm3 (4.4-11.0)
[2025-02-14 05:17] LABS: Pro- Brain NATRIURETIC PEPTIDE 25454 pg/mL (<=450)
[2025-02-14 05:32] LABS: AST(SGOT) 41 U/L (<=37); Alanine Aminotransfer ALT/SGPT 21 U/L (<=46); Albumin, Serum 3.4 g/dL (3.5-5.0); Alkaline Phosphatase 509 U/L (40-129); Anion Gap 23 (5-15); BUN 39 mg/dL (4-19); BUN/Creat Ratio 15.3 RATIO (10-20); Calcium,Total 8.9 mg/dL (7.6-11.0); Carbon Dioxide 16.5 mmol/L (21.0-32.0); Chloride 104 mmol/L (98-108); Estimated Creatinine Clearance 39.41 ml/min (50-250); Globulin 3.0 g/dL (2.2-4.2); Glucose 81 mg/dL (70-99); Potassium 4.7 mmol/L (3.3-5.1)
--- NOTE | 2025-02-14 10:21 | CASEMGMT ---
Social Work- SW participated in interdisciplinary rounds with care team. Pt refusing any treatments at this time, but is also requesting full code and declining hospice. Hospitalist will update SW if pt changes code status and wishes to pursue hospice. SW remains available to follow. MADDIE Gordon
--- NOTE | 2025-02-14 11:25 | CASEMGMT ---
CRISTINE MACIAS Assessment Face to Face with patient for initial transition planning/care coordination assessment. CRISTINE MACIAS introduced self and role at [facility], pt voices understanding. Pt is A&Ox4 and is resting comfortably in bed and is calm. Care providers, pharmacy, and demographics verified. Admitting dx: AE CHF, Respiratory Insufficiency LACE Strata: 2 PCP: No PCP. See previous RN CM's notes. Pt states that he still has the resources and needs to get himself established. Pt denies needs currently. Specialists: Pt reports that he sees Dr Berg with [facility] Preferred Pharmacy: [facility] Insurance: MMO Exchange plan Prescription Benefit: Yes - Pt states that his insurance helps cover his Eliquis LNOK: Kaitlin Hicks (Significant Other) Living Arrangements: Pt lives with his SO and his SO's brother in a single story home with 1 step to enter ADLs/IADLs: Indep. 6-Click score is 24. Pt denies concerns Transportation: Pt does not drive. Pt's SO drives him and denies concerns DME: Scale regarding pt's CHF. Access to a FWW. BP Machine. Pt is currently requiring additional oxygen and may qualify for home oxygen use. A verbal list of local in-network DME companies were provided to the pt at this time. Pt prefers [employer]Pt was also educated on pulse ox purchasing options HHC/SNF: denies hx or needs Pt?s goal: Home Plan: Home, follow for oxygen needs. Per chart review, pt has a hx of noncompliance and is currently refusing intervention e/f a paracentesis. Per ICU rounds, this cannot be done until Friday at the earliest due to the pt taking Eliquis. Noted that the admitting MD was recommending either Hospice or Palliative care due to poor prognosis. This CRISTINE MACIAS educated the pt regarding both of these resources and the pt ultimately declined both services. Pt wishes to DC home and denies further questions or concerns at this time. Nya Cortes RN, CM
--- NOTE | 2025-02-14 14:59 | CM.UR ---
Entered by Chris Garcia 02/14/25 1:30 pm EDT: CALL RECEIVED FROM BRENDA- NURSE REVIEWER [facility] IS OUT OF NETWORK FOR MMO EXCHANGE TRANSFER IS REQUIRED PHYSICIAN TO CALL [facility] WITHIN TWO HRS OF CALL [phone]ION #[address] MELVIN TO NOTIFY- AWARE OF ABOVE AND EITHER HE OR CM WILL SPEAK WITH PATIENT RE: ABOVE. REQUESTED IF PT REFUSES TO TRANSFER- THAT HE WILL BE REQUIRED TO BE RESPONSIBLE FOR THE BILL. CALLED AND LEFT MESSAGE WITH NURSE IFTO GUTIERREZ AT [facility] TO UPDATE THAT PHYSICIAN WILL BE SPEAKING WITH THE PATIENT SOON REQUESTED REVIEW AND CASE BE OPEN UNTIL NURSE CALLS HER BACK WITH PLAN. Entered by Chris Garcia 02/14/25 2:34 pm EDT: CALL RECEIVED FROM DR. MELVIN AND BABAR CASTILLO RN CM- THE PATIENT DOES NOT WISH TO TRANSFER CALLED TO NURSE FITO GUTIERREZ. SHE STATES DR. ALVARADO NEEDS TO CALL THE TRANSFER LINE AND SPEAK WITH PHYSICIAN. IF [facility] PHYSICIAN AGREES FOR PATIENT TO STAY- THEN AN EMAIL WILL BE SENT TO [facility] EXCHANGE TO NOTIFY. DR. RAZO AWARE AND CALLED TO TRANSFER LINE: STATED [facility] TRANSFER LINE WAS NOT AWARE OF THESE INSURANCE ISSUES AND WOULD NOT TAKE CARE OF THE PATIENT CALL OUTLINED BY THE O NURSE. RN NURSE CONTACTED [facility] NURSE TO UPDATE AND SHE IS STATING SHE WILL REVIEW CASE WITH HER CHIEF RADIOLOGY. PT CARE TO CONTINUE AT [facility] IN THE INTERIM (PT IS REFUSING TRANSFER)
--- NOTE | 2025-02-14 17:03 | PCM.PN.HOSP ---
Reason for Visit Chief Complaint: Increasing SOB and Worsening Ascites. Subjective Subjective Patient was seen and examined today, I got word that the patient's insurance does not cover his hospitalization here, I had nursing going to talk to the patient to see if he wanted to be transferred to a hospital in his network ([facility]) but the patient stated that he did not want to be moved to another hospital and he was made aware that he would have to pay [id number] for his hospitalization here patient was not able to have a paracentesis today due to the fact he took Eliquis yesterday Objective Data Objective Data Vital Signs: Vital Signs Temp Pulse Resp BP Pulse Ox O2 Del Method O2 Flow Rate 98.4 F 99 18 101/89 H 99 Room Air 6 02/14/25 15:00 02/14/25 15:00 02/14/25 15:00 02/14/25 15:00 02/14/25 15:00 02/14/25 15:00 02/14/25 15:00 Oxygen Flow Rate (L/min) 6 Oxygen Delivery Method Room Air Weight: 78.1 kg Body Mass Index (BMI) 22.8 Intake & Output: Intake and Output for Last 24 Hours 02/12/25 02/13/25 02/14/25 23:59 23:59 23:59 Intake Total 288 / 288 Output Total 300 / 300 Balance - / 12 Lab / Micro Data 02/14/25 04:30 02/14/25 04:30 Labs: Laboratory Results - last 24 hr 02/13/25 18:40: WBC 6.7, RBC 4.06 L, Hgb 13.4, Hct 41.7, MCV 102.7 H, MCH 33.0 H, MCHC 32.1, RDW Std Deviation 62.7 H, RDW Coeff of Juan 16.6 H, Plt Count 243, MPV 11.2, Immature Gran % (Auto) 0.100, Neut % (Auto) 58.1, Lymph % (Auto) 31.6, Letcher % (Auto) 8.9, Eos % (Auto) 0.4, Baso % (Auto) 0.9, Absolute Neuts (auto) 3.9, Absolute Lymphs (auto) 2.13, Nucleated RBC % 0, Platelet Estimate ADEQUATE, RBC Morphology NORM C+C, PT 16.2 H, INR 1.3, APTT 21.2 L, Sodium 141, Potassium 4.8, Chloride 103, Carbon Dioxide 18.7 L, Anion Gap 20 H, BUN 38 H, Creatinine 2.60 H, Estim Creat Clear Calc 39.69 L, Est GFR (MDRD) Non-Af 30 L, BUN/Creatinine Ratio 14.6, Glucose 107 H, Calcium 9.1, Magnesium 2.6 H, Total Bilirubin 3.79 H, AST 39 H, ALT 24, Alkaline Phosphatase 570 H, [place] [address] H, Total Protein 7.3, Albumin 3.5, Globulin 3.7, Albumin/Globulin Ratio 1.0, Lipase 17 02/13/25 20:18: Urine Color Chaya, Urine Clarity Clear, Urine pH 5.0, Ur Specific Lapine 1.025, Urine Protein 100 H, Urine Glucose (UA) Normal, Urine Ketones 5 H, Urine Occult Blood 10 H, Urine Nitrite Negative, Urine Bilirubin 3 H, Urine Urobilinogen 4 H, Ur Leukocyte Esterase 25 H, Urine RBC 0-5 SEEN, Urine WBC 0-5 SEEN, Ur Squamous Epith Cells 0-5 SEEN, Urine Bacteria 3+, Hyaline Casts 10-25 SEEN, Urine Mucus 0 SEEN 02/14/25 04:30: WBC 7.0, RBC 3.42 L, Hgb 11.3 L, Hct 35.8 L, MCV 104.7 H, MCH 33.0 H, MCHC 31.6 L, RDW Std Deviation 61.9 H, RDW Coeff of Juan 16.3 H, Plt Count 228, MPV 10.6, Immature Gran % (Auto) 0.400, Neut % (Auto) 68.8, Lymph % (Auto) 21.8, Letcher % (Auto) 8.6, Eos % (Auto) 0.1, Baso % (Auto) 0.3, Absolute Neuts (auto) 4.8, Absolute Lymphs (auto) 1.52, Nucleated RBC % 0, Sodium 144, Potassium 4.7, Chloride 104, Carbon Dioxide 16.5 L, Anion Gap 23 H, BUN 39 H, Creatinine 2.56 H, Estim Creat Clear Calc 39.41 L, Est GFR (MDRD) Non-Af 30 L, BUN/Creatinine Ratio 15.3, Glucose 81, Calcium 8.9, Phosphorus 5.1 H, Total Bilirubin 3.81 H, AST 41 H, ALT 21, Alkaline Phosphatase 509 H, [place] [address] H, Total Protein 6.4, Albumin 3.4 L, Globulin 3.0, Albumin/Globulin Ratio 1.1, TSH 4.700 H Micro: Microbiology 02/13/25 18:40 Mucosa - Nose SARS-CoV-2, Influenza & RSV (PCR) - Final Radiography Diagnostic Testing: Radiology Impression Chest X-Ray 02/13/25 18:55 IMPRESSION: Prominent cardiomegaly. No airspace disease or pleural effusion. Reading Location: [facility] Abdomen/Pelvis CT 02/13/25 20:47 IMPRESSION: Prominent cardiomegaly with small nonspecific pericardial effusion. Generalized fluid overload/third-spacing with diffuse soft tissue edema and large volume abdominopelvic ascites. Patchy consolidation in the right lung base may represent pneumonia, possibly from aspiration. Reading Location: [facility] Physical Exam Const alert, oriented x3, no apparent distress and average body habitus General Appearance: cooperative, well kempt and well developed Orientation / Consciousness: awake, oriented to person, oriented to place and oriented to time HEENT normocephalic, head/scalp atraumatic and moist oral mucous membranes Eyes PERRL, EOMs intact bilaterally and conjunctivae normal Neck supple, no JVD, thyroid normal and no carotid bruits General: trachea midline Resp normal respiratory effort, no retractions, no use of accessory muscles and clear to auscultation bilaterally Auscultation: Negative for rales, rhonchi or wheezes Cardio regular rate, regular rhythm, S1 normal heart sound, S2 normal heart sound, no murmurs, no rub and no gallops Cardio Narrative: Heart rate and rhythm is tachycardic GI normal to inspection, nondistended, normoactive bowel sounds, soft to palpation, non-tender and non-distended Extremity General Extremity: edema bilateral lower extremity Skin no rashes or lesions noted General Skin Exam: no breakdown Neuro oriented x3, CN's II-XII intact bilaterally, moves all extremities, no focal motor deficits and no sensory deficits noted Sensorium / Orientation: awake and alert Speech: speech normal Psych affect normal Assessment & Plan Assessment/Plan (1) Abdominal ascites: QUALIFIERS: Ascites type: other type Qualified Code(s): R18.8 - Other ascites PLAN: Plan 1. Acute exacerbation of chronic systolic congestive heart failure-patient will remain on IV Lasix, I have decided to place him on IV Dobutrex and introduce a small amount of an LUCRECIA inhibitor, his renal function will be monitored closely #2 ascites secondary to chronic systolic congestive heart failure-patient will undergo a paracentesis on Friday of this week, his Eliquis is being held #3 chronic use of anticoagulant, it is unknown why the patient is on Eliquis, he appears to be in sinus rhythm at this time, Eliquis will be held due to his paracentesis #4 nonischemic cardiomyopathy-patient has severe LV dysfunction with an EF of 15%, he will need maximal therapy before he can have a defibrillator inserted, I will attempt to adjust his meds during this admission, I explained that it was very important for him to consider getting an ICD put in due to his risk of sudden . Patient appears stable for transfer to PCU. Total clinical time spent by myself addressing the patient's medical issues, reviewing all of his data, and collaborating patient's care team: 35 minutes Charges/Coding Visit Charges Inpatient E&M: 44145 Subs Hosp L2
[2025-02-14] MEDS: DOBUTamine IV 500 MG in Dextrose 5%-Water (250mL Bag) 210 ML 23.4 MG IV (19:30)
[2025-02-15] VITALS (37 sets, daily range): BP systolic 79–156; BP diastolic 40–128; PULSE 72–159; RESP 15–24; TEMP 36–36.6; O2SAT 93–100; BMI 22.6
[2025-02-15] MEDS: DOBUTamine IV 500 MG in Dextrose 5%-Water (250mL Bag) 210 ML 23.4 MG IV (05:25)
[2025-02-15] MEDS: 0.9% Saline Lock 10 ML Syringe IV ×2 (05:26→08:22)
--- NOTE | 2025-02-15 08:10 | EKG12_ITS ---
Test Reason : tachy Blood Pressure : */* mmHG Vent. Rate : 156 BPM Atrial Rate : * BPM P-R Int : * ms QRS Dur : 88 ms QT Int : 306 ms P-R-T Axes : * -37 73 degrees QTcB Int : 493 ms Critical Test Result: High HR Supraventricular tachycardia Left axis deviation Minimal voltage criteria for LVH, may be normal variant ( [place] product ) Nonspecific T wave abnormality Abnormal ECG When compared with ECG of 13-Feb-2025 21:55, Fusion complexes are no longer Present QRS duration has decreased ST no longer elevated in Anterior leads T wave inversion no longer evident in Inferior leads Confirmed by SNOW BOSTON, JULIETTE ([id number]), department editor AGUSTÍN KIDD ([id number]) on 02/16/2025 9:29:38 AM Referred By: Confirmed By: JULIETTE ADAMSON MD
[2025-02-15] MEDS: DOBUTamine IV 500 MG in Dextrose 5%-Water (250mL Bag) 210 ML 5.8 MG IV (11:53)
[2025-02-15] MEDS: Isosorbide DN 20 MG Tablet PO ×2 (13:45→21:14)
--- NOTE | 2025-02-15 18:39 | PCM.PN.HOSP ---
Reason for Visit Chief Complaint: Increasing SOB and Worsening Ascites. Subjective Subjective Patient was seen and examined today, initially he refused to take his lisinopril but changed his mind today. Patient had an episode of what appeared to be SVT at a rate of 160 bpm, this converted to normal sinus rhythm after 5 mg of metoprolol was given IV. I placed the patient on 12-1/2 mg of metoprolol tartrate twice daily today and restarted his Dobutrex at 5 mcg Objective Data Objective Data Vital Signs: Vital Signs Temp Pulse Resp BP Pulse Ox O2 Del Method O2 Flow Rate 97.7 F L 86 19 H 89/75 L 95 Room Air 2 02/15/25 16:05 02/15/25 18:00 02/15/25 18:00 02/15/25 18:00 02/15/25 18:00 02/15/25 18:00 02/15/25 05:00 Oxygen Flow Rate (L/min) 2 Oxygen Delivery Method Room Air Weight: 77.8 kg Body Mass Index (BMI) 22.6 Intake & Output: Intake and Output for Last 24 Hours 02/13/25 02/14/25 02/15/25 23:59 23:59 23:59 Intake Total 369.90 / 393.30 1246.26 / 1246.26 Output Total 300 / 300 650 / 650 Balance 69.90 / 93.30 596.26 / 596.26 Lab / Micro Data 02/14/25 04:30 02/14/25 04:30 Micro: Microbiology 02/13/25 18:40 Mucosa - Nose SARS-CoV-2, Influenza & RSV (PCR) - Final Physical Exam Narrative alert, oriented x3, no apparent distress and average body habitus General Appearance: cooperative, well kempt and well developed Orientation / Consciousness: awake, oriented to person, oriented to place and oriented to time HEENT normocephalic, head/scalp atraumatic and moist oral mucous membranes Eyes PERRL, EOMs intact bilaterally and conjunctivae normal Neck supple, no JVD, thyroid normal and no carotid bruits General: trachea midline Resp normal respiratory effort, no retractions, no use of accessory muscles and clear to auscultation bilaterally Auscultation: Negative for rales, rhonchi or wheezes Cardio regular rate, regular rhythm, S1 normal heart sound, S2 normal heart sound, no murmurs, no rub and no gallops Cardio Narrative: Heart rate and rhythm is tachycardic GI normal to inspection, nondistended, normoactive bowel sounds, soft to palpation, non-tender and non-distended Extremity General Extremity: edema bilateral lower extremity Skin no rashes or lesions noted General Skin Exam: no breakdown Neuro oriented x3, CN's II-XII intact bilaterally, moves all extremities, no focal motor deficits and no sensory deficits noted Sensorium / Orientation: awake and alert Speech: speech normal Psych affect normal Assessment & Plan Assessment/Plan (1) CHF (congestive heart failure): (2) Abdominal ascites: QUALIFIERS: Ascites type: other type Qualified Code(s): R18.8 - Other ascites PLAN: Plan 1. Acute exacerbation of chronic systolic congestive heart failure-patient will remain on IV Lasix, I have decided to place him on IV Dobutrex at a lower infusion rate, he will remain on lisinopril and I have added metoprolol to tartrate 12 and half milligrams twice daily. I told the patient that it is very important for us to get him on targeted medical treatment so that he would be eligible to get an ICD implanted if necessary. #2 ascites secondary to chronic systolic congestive heart failure-patient will undergo a paracentesis on Friday of this week, his Eliquis is being held #3 chronic use of anticoagulant, it is unknown why the patient is on Eliquis, he appears to be in sinus rhythm at this time, Eliquis will be held due to his paracentesis #4 nonischemic cardiomyopathy-patient has severe LV dysfunction with an EF of 15%, he will need maximal therapy before he can have a defibrillator inserted, I will attempt to adjust his meds during this admission, I explained that it was very important for him to consider getting an ICD put in due to his risk of sudden . Total clinical time spent by myself addressing the patient's medical issues, reviewing all of his data, and collaborating patient's care team: 35 minutes Charges/Coding Visit Charges Inpatient E&M: 55440 Subs Hosp L2
[2025-02-16] VITALS (24 sets, daily range): BP systolic 85–115; BP diastolic 58–97; PULSE 84–103; RESP 15–25; TEMP 35.9–36.6; O2SAT 96–99; BMI 23.1
[2025-02-16] MEDS: Isosorbide DN 20 MG Tablet PO (05:12)
--- NOTE | 2025-02-16 08:00 | US_ITS ---
PROCEDURE: PARACENTESIS WITH US 02/16/2025 REASON FOR EXAM: RECURRENT MASSIVE ASCITES WITH CIRRHOSIS. TECHNIQUE: Right upper quadrant abdominal PARACENTESIS WITH US FINDINGS: Procedure: Following informed consent, and using standard sterile technique, an ultrasound- guided right upper quadrant abdominal paracentesis was performed. 2% lidocaine local anesthesia was followed by placement of a 5 Persian catheter into the ascitic fluid collection. Approximately 6770 mL clear yellow fluid was successfully removed. No complication was encountered, in the patient left the department in good condition without significant complaint. US/Paracentesis with US IMPRESSION: Successful therapeutic abdominal paracentesis, under ultrasound guidance. Reading Location: [place] [address]
[2025-02-16] MEDS: 0.9% Saline Lock 10 ML Syringe IV ×2 (08:37→13:33)
[2025-02-16] MEDS: DOBUTAMINE 23.3 MG IV (08:53)
[2025-02-16 09:23] LABS: Magnesium 2.2 mg/dL (1.5-2.2)
[2025-02-16] MEDS: Lidocaine 2% (20 ml mdv) 20 ML Vial INFILT (10:40)
--- NOTE | 2025-02-16 12:55 | DCINST_ITS ---
Discharge Instructions DC O2, CPAP, BIPAP needs Home O2 Discharge instructions: No Dressing / Incision Discharge Activity: Return to Normal Activity Weight Bearing Status: Full weight bearing Follow Up Care Test Results: Test results from this visit will be discussed in further detail at your follow- up appointment, if applicable. Discharge Plan Admission Admit Date/Time: 02/13/25 22:33 Primary Reason for Your Visit: Congestive heart failure, ascites Attending Provider: Turner Luther Primary Care Provider: Care Physician,No Primary Consulting Providers: Eugene Alexandra Instructions Patient Instructions: WADE RN Paracentesis Dc Discharge Orders/Prescriptions Prescriptions: New lisinopril 5 mg Tablet 5 mg PO DAILY Qty: 30 0RF metoprolol tartrate 25 mg Tablet 12.5 mg PO BID Qty: 30 0RF Continued isosorbide dinitrate 20 mg tablet 20 mg PO Q8H bumetanide 1 mg tablet 1 mg PO BID Eliquis 5 mg tablet 5 mg PO BID Referrals / Follow Up: Care Physician,No Primary [Primary Care Provider] - Christopher Mc NP, CHIEF MEDICAL PHYSICIST-C [Med Staff - Adv Practice Prof] - See Referral Note (In 3 weeks) Disposition Disposition (needs filled in before D/C Order can be placed): Home, Self Care
--- NOTE | 2025-02-16 13:38 | DS.PCM_ITS ---
Providers Date of Admission: 02/13/25 Date of Discharge: 02/16/25 Primary Care Physician: No Primary Care Phys Reason For Visit: AE CHF, RESPIRATORY INSUFFICIENCY, WORSENING Diagnosis Discharge Diagnosis (1) CHF (congestive heart failure): Status: Inactive Code(s): I50.9 - Heart failure, unspecified (2) Abdominal ascites: Status: Inactive Code(s): R18.8 - Other ascites Qualifiers: Ascites type: other type Qualified Code(s): R18.8 - Other ascites Plan 1. Acute exacerbation of chronic systolic congestive heart failure-patient will remain on IV Lasix, I have decided to place him on IV Dobutrex at a lower infusion rate, he will remain on lisinopril and I have added metoprolol to tartrate 12 and half milligrams twice daily. I told the patient that it is very important for us to get him on targeted medical treatment so that he would be eligible to get an ICD implanted if necessary. #2 ascites secondary to chronic systolic congestive heart failure-patient will undergo a paracentesis on Friday of this week, his Eliquis is being held #3 chronic use of anticoagulant, it is unknown why the patient is on Eliquis, he appears to be in sinus rhythm at this time, Eliquis will be held due to his paracentesis #4 nonischemic cardiomyopathy-patient has severe LV dysfunction with an EF of 15%, he will need maximal therapy before he can have a defibrillator inserted, I will attempt to adjust his meds during this admission, I explained that it was very important for him to consider getting an ICD put in due to his risk of sudden . #5 paroxysmal SVT Medications at Discharge Home Medications apixaban 5 mg tablet (Eliquis) 5 mg PO BID blood thinner 01/04/25 bumetanide 1 mg tablet 1 mg PO BID water retention 01/04/25 isosorbide dinitrate 20 mg tablet 20 mg PO Q8H heart 01/04/25 lisinopril 5 mg tablet 5 mg PO DAILY #30 tabs 02/16/25 metoprolol tartrate 25 mg tablet 12.5 mg (1/2 x 25 mg) PO BID #30 tabs 02/16/25 Hospital Course Procedures Paracentesis Summary of Care Provided Minutes Spent on Discharge: 32 Hospital Course: This 45-year-old black male was seen in the emergency room at [facility] with complaints of abdominal distention. History of a nonischemic cardiomyopathy and underwent a previous paracentesis on 01/31/2025 at [facility]. Patient has been worked up for his cardiomyopathy, he has a severely reduced ejection fraction of 15%, patient is unable to take multiple medications however due to nausea with medications and has stopped many of his medications. Chest x-ray was obtained in the ER which showed mild congestive heart failure abdomen and pelvis CT showed prominent cardiomegaly with small nonspecific pericardial effusions, there is general fluid overload spacing with diffuse soft tissue edema and large volume abdominal pelvic ascites. There is patchy consolidation in the right lung which could represent pneumonia. Patient had no signs or symptoms of pneumonia however. Patient was admitted to PCU and because he had taken Eliquis the day before, he was not a candidate to undergo a paracentesis the next day. Patient was placed on diuretics and I attempted to treat the patient with IV Dobutrex to see if this would improve his EF and allow him to take his target directed medication. Patient tolerated his Dobutrex initially but then went into SVT, he was given metoprolol and converted to normal sinus rhythm. Patient was placed on small doses of lisinopril and metoprolol, he begrudgingly took these medications after explanation from nursing why it was necessary to take the medications. I had multiple conversations with him about the need to get him on medications and meet requirements to get an ICD inserted due to his high risk of sudden . Patient underwent a paracentesis with removal of approximately 6770 mL of fluid. Patient was restarted on his Dobutrex at a lower rate and tolerated the medication. On 02/16/2025, the patient expressed to me the desire to be discharged home, I explained to him that he should stay another day and get another day of Dobutrex infusion but the patient refused. Again I tried to impress upon the patient that he must tolerate and take his cardiac medications when he goes home. On 02/16/2025, patient was seen and examined: On examination he appeared in good health and spirits. Vital signs as documented. Skin warm and dry and without overt rashes. Neck without JVD, neck was supple, trachea midline, thyroid was normal. Lungs clear bilaterally, normal air movement was noted. Heart exam notable for regular rhythm, normal sounds and absence of murmurs, rubs or gallops. Abdomen unremarkable and without evidence of organomegaly, masses, or abdominal aortic enlargement. Bowel sounds are present, abdomen is not distended. Extremities nonedematous, no cyanosis was noted, no clubbing was noted. Neuro: Cranial nerves II through XII are grossly intact, no focal motor deficits were noted, sensation to light touch and pinprick intact, motor exam 5/5 throughout. Psych: Patient is alert and oriented x3, he does not appear anxious or depressed, he does not appear agitated. Patient appears stable for discharge home on 02/16/2025, due to his history of noncompliance his overall prognosis is very guarded. Weight / BMI Weight Weight: 79.7 kg Body Mass Index (BMI) 23.1 ABG / Lab / Microbiology Data 02/14/25 04:30 02/14/25 04:30 Laboratory: Laboratory Results - last 24 hr 02/16/25 08:33: Phosphorus 2.5 L, Magnesium 2.2 Microbiology: Microbiology 02/13/25 18:40 Mucosa - Nose SARS-CoV-2, Influenza & RSV (PCR) - Final Radiography Diagnostic Testing: Radiology Impression Paracentesis Ultrasound 02/16/25 08:00 IMPRESSION: Successful therapeutic abdominal paracentesis, under ultrasound guidance. Reading Location: [place] [address] D/C Instructions Weight Bearing Status: Full weight bearing DC O2, CPAP, BIPAP Needs Home O2 Discharge instructions: No Meaningful Use Info Meaningful Use Meaningful Use Diagnoses (Choose all that apply): CHF CHF LUCRECIA/ARB ordered at discharge?: Yes Documented LVEF (%): 15 Discharge Plan Admission Admit Date/Time: 02/13/25 22:33 Primary Reason for Your Visit: Congestive heart failure, ascites Attending Provider: Turner Luther Primary Care Provider: Care Physician,No Primary Consulting Providers: Eugene Alexandra Instructions Patient Instructions: WADE RN Paracentesis Dc Discharge Orders/Prescriptions Prescriptions: New lisinopril 5 mg Tablet 5 mg PO DAILY Qty: 30 0RF metoprolol tartrate 25 mg Tablet 12.5 mg PO BID Qty: 30 0RF Continued isosorbide dinitrate 20 mg tablet 20 mg PO Q8H bumetanide 1 mg tablet 1 mg PO BID Eliquis 5 mg tablet 5 mg PO BID Referrals / Follow Up: Care Physician,No Primary [Primary Care Provider] - Christopher Mc SHIP FASTENER, SHIP FASTENER-C [Med Staff - Adv Practice Prof] - See Referral Note (In 3 weeks) Disposition Disposition (needs filled in before D/C Order can be placed): Home, Self Care Charges/Coding Visit Charges Inpatient E&M: 18189 Disch Hosp >30min
[2025-02-16] MEDS: Albumin Human 25% (100 mL) 25 GM/100 ML BAG IV ×2 (13:39→15:17)
== END 2025-02-16 19:30 | disposition home or self-care (01) | DRG 291 ==
LOC: ED 21:46 → PCU 23:09 → ICU 02-14 00:54 → PCU 02-14 17:42
PROVIDERS: Family Medicine; Admitting Provider Internal Medicine; Emergency Provider Emergency Medicine; Visit Provider Internal Medicine
DX: I13.0 Hypertensive heart and chronic kidney disease with heart failure and stage 1 through stage 4 chronic kidney disease, or unspecified chronic kidney disease (principal); I50.23 Acute on chronic systolic (congestive) heart failure; I47.10 Supraventricular tachycardia, unspecified; R18.8 Other ascites; I48.20 Chronic atrial fibrillation, unspecified; Z79.01 Long term (current) use of anticoagulants; N18.32 Chronic kidney disease, stage 3b; I42.8 Other cardiomyopathies; R09.02 Hypoxemia; Z91.198 Patient's noncompliance with other medical treatment and regimen for other reason; Z79.899 Other long term (current) drug therapy; Z86.711 Personal history of pulmonary embolism; Z86.718 Personal history of other venous thrombosis and embolism
CPT/HCPCS: 36415; 49083; 71046; 74176; 80053; 81001; 83690; 83735; 83880; 84100; 84443; 85025; 85610; 85730; 87631; 93005; 94668; 99285; P9047; A4216; J1938

== ENCOUNTER 2025-02-22 12:58 | Emergency (ER) | payer OTHER, SELFPAY ==
[2025-02-22] VITALS (9 sets, daily range): BP systolic 77–115; BP diastolic 35–87; PULSE 103–113; RESP 16–30; TEMP 35.8–36.2; O2SAT 97–100; BMI 23.0
--- NOTE | 2025-02-22 14:29 | EKG12_ITS ---
Test Reason : DYSRHYTHMIA Blood Pressure : */* mmHG Vent. Rate : 111 BPM Atrial Rate : 111 BPM P-R Int : 150 ms QRS Dur : 142 ms QT Int : 374 ms P-R-T Axes : 75 157 -12 degrees QTcB Int : 508 ms Sinus tachycardia Possible Left atrial enlargement Right axis deviation Left ventricular hypertrophy with QRS widening and repolarization abnormality ( Harrison product ) Abnormal ECG Confirmed by DEVON SANDS ([id number]), editor department AGUSTÍN KIDD ([id number]) on 02/23/2025 1:49:09 PM Referred By: Confirmed By: DEVON SANDS
--- NOTE | 2025-02-22 14:30 | ED.VIS.DYS ---
HPI History of Present Illness Chief Complaint: Cough Informant: patient and spouse/S.O. Narrative Narrative: Presents with dyspnea and right-sided chest pain since Friday. From history reports nonischemic cardiomyopathy has seen Dr. Berg. Diagnosed a year ago. He states he had a heart cath without any intervention. Reported has been recommended defibrillator. Admitted 2 weeks ago for heart failure he had a paracentesis 2 weeks ago then again last week. He is on Eliquis for history of blood clots. He does not wear oxygen. Chronic leg swelling no worsening. Denies any orthopnea. Chronic cough. No fever chills or sweats. No vomiting or diarrhea. No urinary symptoms. He states last paracentesis this past Friday reporting 6700 out. He denies history of cirrhosis. Prior similar symptoms: Yes [facility] Medical History (Updated 02/22/25 @ 22:[address] Jose Crouch DO) Cirrhosis Hypertension Medical non-compliance Chronic anticoagulation Chronic atrial fibrillation Hyperbilirubinemia Respiratory insufficiency Hypoxia Abdominal ascites Left ventricular ejection fraction less than 20% Abdominal ascites Kidney disease Non-smoker Irregular heart beat DVT (deep venous thrombosis) CKD stage 3b, GFR 30-44 ml/min Elevated bilirubin HFrEF (heart failure with reduced ejection fraction) CKD (chronic kidney disease) Cardiomyopathy Left bundle branch block Noncompliance Pulmonary embolism CHF (congestive heart failure) Home Medications ?Medication ?Instructions ?Recorded ?Last Taken ?Type apixaban 5 mg tablet (Eliquis) 5 mg PO BID blood thinner 01/04/25 02/21/25 History bumetanide 1 mg tablet 1 mg PO BID water retention 01/04/25 02/21/25 History isosorbide dinitrate 20 mg tablet 20 mg PO Q8H heart 01/04/25 02/21/25 History lisinopril 5 mg tablet 5 mg PO DAILY #30 tabs 02/16/25 02/21/25 Rx metoprolol tartrate 25 mg tablet 12.5 mg (1/2 x 25 mg) PO BID #30 02/16/25 02/21/25 Rx tabs Allergy/AdvReac Type Severity Reaction Status Date / Time No Known Allergies Allergy Verified 02/13/25 17:48 Family History Father Heart disease Brother Heart disease Social History Smoking Status: Never smoker alcohol intake: never substance use type: does not use ROS ROS ED Constitutional Constitutional ED: Denies chills, fever(s) or sweats ENT ENT ED: Denies sore throat Cardiovascular Cardiovascular: Reports chest pain and leg edema; Denies palpitations or racing heartbeat Respiratory/Chest Respiratory/Chest: Reports cough and dyspnea; Denies dyspnea on exertion Gastrointestinal Gastrointestinal: Denies abdominal pain, diarrhea, nausea or vomiting Genitourinary Genitourinary ED: Denies dysuria, hematuria or urinary frequency Musculoskeletal Musculoskeletal: Denies back pain, extremity pain or neck pain Integumentary Denies rash or wounds Neurologic Neurologic: Denies headache(s), paresthesias or weakness EXAM Physical Exam Const Vital Signs: 02/22/25 12:58 02/22/25 13:30 02/22/25 13:46 Temperature 96.5 F L 97.2 F L Temperature Source Temporal Axillary Pulse Rate 113 H Respiratory Rate 22 H Respiratory Effort Short of Breath Respiratory Depth Normal Respiratory Pattern Tachypnea Blood Pressure 115/71 Blood Pressure Mean 85 Pulse Ox 97 Oxygen Delivery Method Room Air Oxygen Flow Rate (L/min) 02/22/25 14:55 02/22/25 15:00 02/22/25 16:38 Temperature Temperature Source Pulse Rate 105 H 106 H Respiratory Rate 30 H 30 H Respiratory Effort Respiratory Depth Respiratory Pattern Blood Pressure 77/35 L 88/76 L Blood Pressure Mean 49 80 Pulse Ox 100 98 Oxygen Delivery Method Nasal Cannula Nasal Cannula Nasal Cannula Oxygen Flow Rate (L/min) 2 2 02/22/25 16:53 02/22/25 18:00 02/22/25 19:18 Temperature 97.2 F L Temperature Source Axillary Pulse Rate 105 H 106 H Respiratory Rate 16 25 H Respiratory Effort Respiratory Depth Respiratory Pattern Blood Pressure 102/87 H 99/81 H 104/76 Blood Pressure Mean 92 87 85 Pulse Ox Oxygen Delivery Method Nasal Cannula Oxygen Flow Rate (L/min) 2 02/22/25 22:00 Temperature Temperature Source Pulse Rate 103 H Respiratory Rate 22 H Respiratory Effort Respiratory Depth Respiratory Pattern Blood Pressure 97/84 H Blood Pressure Mean 88 Pulse Ox Oxygen Delivery Method Nasal Cannula Oxygen Flow Rate (L/min) 2 Positive well nourished and well developed Constitutional Narrative: 2 L nasal cannula no distress. General Appearance ED: well developed and NAD HEENT Reports moist mucous membranes normocephalic and atraumatic Eyes General Eye ED: Yes normal appearance of both eyes Neck full ROM Chest Wall Chest: Negative for tenderness Resp normal respiratory effort and normal air movement Effort and Inspection: symmetric chest movement; Negative for respiratory distress Cardio regular rhythm and no murmurs Rate: tachycardic Peripheral Pulses: pulses 2+ throughout GI normal to inspection, nondistended, normoactive bowel sounds and non-tender Palpation: Negative for guarding or rebound tenderness present Extremity normal to inspection Extremity Narrative: 1+ lower extremity edema. No calf pain. General Extremety ED: Yes edema; Negative for tenderness General Extremity: edema Neuro oriented x3 and no sensory deficits noted Sensorium / Orientation: awake and alert Skin no rashes or lesions noted and no wounds MDM MDM MDM Narrative Medical decision making narrative: Interventions / MDM: Differential diagnosis: Heart failure, history of cardiomyopathy, CKD. Diagnosis considered but do not suspect: Pulmonary embolism however current Eliquis therapy with no missed doses. My EKG interpretation: Sinus rate of 108, no ST changes, T wave versions in inferior leads. Left bundle branch block. New left bundle and new T wave versions compared to 7 days ago. Imaging independently reviewed and interpreted by myself: 1 view chest x-ray: No pleural effusion no infiltrates. External documents reviewed: Cardiology note from February 10, [address] Berg. Known cardiomyopathy, nonischemic. Did not tolerate guideline directed therapy medications due to side effects. Had recommendations for admission for dobutamine drip. Hospitalization from a week ago confirming paracentesis output of 6700 in his abdomen. Test considered but not ordered:N/A ED course: Patient history of cardiomyopathy. Presenting dyspnea right sided chest pains. EKG new left bundle branch block new T wave inversions. Cardiac workup ordered including BNP. 1600: Interim nursing reported me he had blood pressure dropped to 77/35 presentation blood pressure 115/71. Known cardiomyopathy EF of 15%. Initiated 500 cc bolus. On recheck he responding his up to systolic 99. Reviewing records had cardiology visit in the office [address] Berg, with his known cardiomyopathy had potential recommendations inpatient management onto dobutamine drip to monitor response. I spoke with on-call mitigation supervisor Dr. Moreno, discussed at this time his blood pressure responding however if he is hypotensive does agree with initiation of dobutamine drip low-dose. Will plan on hospitalizing with his transient hypotension. Chest x-ray did return with no effusion. 1620: BNP 29,500 similar from his most recent 1 troponin 56. Right-sided chest pains. Blood pressure currently 88 systolic. I will initiate low-dose dobutamine drip with his heart failure and hypotension as discussed with cardiology. Will discuss with hospitalist for admission. Requesting pain for his right-sided chest pain. Low-dose fentanyl IV will be ordered. Secondary to hypotension will need to hospitalize for stabilization. 1800: Did speak with hospice Dr. Tang who evaluated the patient and spoke with mitigation supervisor again. Patient's had multiple recent admissions here, concerns is cardiogenic shock with his cardiomyopathy. Currently on low-dose dobutamine at 2.5 mics per kilogram per minute. Blood pressure 107/89 currently. They recommended he get transferred to a larger facility with LVAD capabilities who can evaluate him. Discussed his failed medications he is had Entresto and Jardiance for which he did not tolerate due to GI effects. They reported for months he was only on Eliquis, Bumex, isosorbide before his more recent hospitalizations. 1830: Lactic acid added by hospitalist returned at 7.2. At this time concerns secondary to cardiogenic shock. Would not give additional fluids to avoid overload to prevent respiratory failure. Creatinine 2.4 stable from his previous labs. 1999: I spoke with transfer [facility], spoke with mitigation supervisor Dr. Deluna discussed all of patient's history, recent admissions and my mitigation supervisor and hospitalist's recommendations for transfer for higher level of care. he is on low-dose dobutamine at this time blood pressure stable. He does agree to accept the patient pending bed availability. This was discussed with the patient. Will await bed for planned transfer. 2199: Remains stable at this time. Re-evaluation: stable Disposition discussed with patient/family/significant other: Patient and significant other Case discussed with consulting clinician: Cardiology, hospitalist, cardiology This note was generated with [employer] dictation software. It may contain incorrect words, spelling, and punctuation that were not noted in checking the note before signing. Lab Data Attestation: I reviewed the patient's lab results. Labs: Laboratory Results - last 24 hr 08/02/22/25 02/22/25 14:11 16:33 16:45 WBC 8.0 RBC 3.91 L Hgb 12.9 L Hct 40.1 MCV 102.6 H MCH 33.0 H MCHC 32.2 RDW Std Deviation 60.6 H RDW Coeff of Juan 16.3 H Plt Count 370 MPV 9.8 Immature Gran % (Auto) 0.500 Neut % (Auto) 60.3 Lymph % (Auto) 29.6 Winkler % (Auto) 8.7 Eos % (Auto) 0.4 Baso % (Auto) 0.5 Absolute Neuts (auto) 4.8 Absolute Lymphs (auto) 2.35 Nucleated RBC % 0.6 Sodium 139 Potassium 4.6 Chloride 101 Carbon Dioxide 14.3 L Anion Gap 24 H BUN 45 H Creatinine 2.42 H Estim Creat Clear Calc 42.27 L Est GFR (MDRD) Non-Af 32 L BUN/Creatinine Ratio 18.6 Glucose 107 H Lactic Acid 7.2 H* Calcium 9.1 Troponin T High Sens 56 H* Troponin T Hi Sens 2 Hr 50 H [place]roponin [place] 4[place] [address] H 02/22/25 18:58 WBC RBC Hgb Hct MCV MCH MCHC RDW Std Deviation RDW Coeff of Juan Plt Count MPV Immature Gran % (Auto) Neut % (Auto) Lymph % (Auto) Winkler % (Auto) Eos % (Auto) Baso % (Auto) Absolute Neuts (auto) Absolute Lymphs (auto) Nucleated RBC % Sodium Potassium Chloride Carbon Dioxide Anion Gap BUN Creatinine Estim Creat Clear Calc Est GFR (MDRD) Non-Af BUN/Creatinine Ratio Glucose Lactic Acid Calcium Troponin T High Sens Troponin T Hi Sens 2 Hr Troponin T Hi Sens 4Hr 47 H NT pro BNP II Radiography Diagnostic Testing: Clinical Impression(s) from Imaging Studies Chest X-Ray 02/22/25 14:57 IMPRESSION: Cardiomegaly. The lungs are clear. Reading Location: [id number] Discharge Plan Triage Chief Complaint: Cough ED Provider: Jose Crouch Dx/Rx/DC Orders Clinical Impression: CHF (congestive heart failure), Cardiomyopathy, Hypotension, CKD (chronic kidney disease), Cardiogenic shock Prescriptions: No Action isosorbide dinitrate 20 mg tablet 20 mg PO Q8H bumetanide 1 mg tablet 1 mg PO BID Eliquis 5 mg tablet 5 mg PO BID lisinopril 5 mg Tablet 5 mg PO DAILY Qty: 30 0RF metoprolol tartrate 25 mg Tablet 12.5 mg PO BID Qty: 30 0RF Primary Care Provider: Rosaline Ash Referrals: Care Physician,No Primary [Non-Staff] - Print Language: Micronesian Disposition Disposition: DC/Tx to Another Type of HCF
[2025-02-22 14:42] LABS: Hematocrit 40.1 % (40-54); Hemoglobin 12.9 g/dL (13.0-16.5); Immature Granulocytes Count 0.040 X10^3/uL (0.0-0.0); Mean Corp Hgb Conc 32.2 g/dL (32-36); Mean Corpuscular Volume 102.6 fL (80-94); Mean Platelet Vol. 9.8 fl (6.2-12.0); NRBC Flagged by Analyzer 0.6 % (0-5); Platelet Count 370 K/mm3 (150-450); RBC Distribution Width CV 16.3 % (11.6-14.6); RBC Distribution Width SD 60.6 fl (35.1-43.9); Red Blood Count 3.91 M/mm3 (4.6-6.2); White Blood Count 8.0 K/mm3 (4.4-11.0)
--- NOTE | 2025-02-22 14:57 | RAD_ITS ---
PROCEDURE: CHEST PA AND LATERAL 02/22/2025 REASON FOR EXAM: SOB, COUGH Right-sided chest pain. Recent paracentesis. TECHNIQUE: CHEST PA AND LATERAL COMPARISON: Prior study dated February 13, 2025 FINDINGS: Hardware: EKG electrodes are seen. Heart: Heart size is moderately enlarged. Mediastinum: The mediastinal contour is unremarkable. Lungs: The lungs are clear. Bones: Degenerative changes are identified within the thoracic spine. RAD/Chest PA and Lateral IMPRESSION: Cardiomegaly. The lungs are clear. Reading Location: [id number]
--- NOTE | 2025-02-22 15:34 | ED.RN ---
Dr. Crouch notified of BP 77/35, manual BP completed, unable to read. second BP reading in L arm 41/21. De. Crouch notified, 500cc bolus ordered and hung.
[2025-02-22] MEDS: 0.9% Normal Saline (500mL Bag) 500 ML 999 ML IV (15:35)
[2025-02-22 15:40] LABS: Troponin T High Sensitivity 56 ng/L (<=22)
[2025-02-22 16:03] LABS: Anion Gap 24 (5-15); BUN 45 mg/dL (4-19); BUN/Creat Ratio 18.6 RATIO (10-20); Calcium,Total 9.1 mg/dL (7.6-11.0); Carbon Dioxide 14.3 mmol/L (21.0-32.0); Chloride 101 mmol/L (98-108); Estimated Creatinine Clearance 42.27 ml/min (50-250); Glucose 107 mg/dL (70-99); Potassium 4.6 mmol/L (3.3-5.1); Pro- Brain NATRIURETIC PEPTIDE 29524 pg/mL (<=450)
[2025-02-22] MEDS: fentaNYL 100 MCG/2 ML Ampul 25 MCG IV (16:27)
[2025-02-22] MEDS: DOBUTamine IV 500 MG in Dextrose 5%-Water (250mL Bag) 210 ML 5.9 MG IV (16:53)
--- NOTE | 2025-02-22 17:06 | ED.RN ---
multiple different attempts and methods tried to obtain pt pulse ox. unable to obtain with good waveform. placed on capnography. pt BP difficult to obtain with both manual and automatic cuff. Dr. Crouch is made aware.
[2025-02-22 17:17] LABS: Troponin T High Sens 2 HR 50 ng/L (<=22)
--- NOTE | 2025-02-22 18:16 | PCA ---
CALLED [facility] @2921 FAXED FACE SHEET AND PUSHED IMAGES OVER TO THEM, THEY WILL CALL BACK
[2025-02-22 19:24] LABS: Troponin T High Sens 4 HR 47 ng/L (<=22)
[2025-02-22 20:50] LABS: Reflex Lactate? Y
--- NOTE | 2025-02-22 23:39 | PCA ---
THIS TALENT ACQUISITION PROJECT MANAGER CALLED [facility]SFER [facility] FOR BED STATUS UPDATE. MULUGETA WITH [facility]SFER [facility] STATED PT WILL NOT RECEIVE A BED TONIGHT.
[2025-02-23] VITALS (26 sets, daily range): BP systolic 80–170; BP diastolic 64–90; PULSE 71–155; RESP 14–25; TEMP 36.6; O2SAT 93–100
[2025-02-23] MEDS: fentaNYL 100 MCG/2 ML Ampul 50 MCG IV ×2 (01:58→15:35)
--- NOTE | 2025-02-23 02:12 | EKG12_ITS ---
Test Reason : Blood Pressure : */* mmHG Vent. Rate : 108 BPM Atrial Rate : 108 BPM P-R Int : 138 ms QRS Dur : 148 ms QT Int : 402 ms P-R-T Axes : 78 191 -12 degrees QTcB Int : 538 ms Sinus tachycardia with occasional Premature ventricular complexes Non-specific intra-ventricular conduction block Possible Lateral infarct , age undetermined Abnormal ECG Confirmed by DEVON SANDS ([id number]), staff editor AGUSTÍN KIDD ([id number]) on 02/23/2025 1:52:30 PM Referred By: Confirmed By: DEVON SANDS
--- NOTE | 2025-02-23 02:49 | ED.RN ---
At approximately 0139, pt monitor started to alarm at the desk saying VTACH This RN enters room and observes monitor, pt appears to be in ventricular tachycardia. This RN requests agent ticketing gate to call Respiratory for an EKG, and also notified Dr. Taveras. Pt placed on defibrillator pads, pt informed it would be in his best interest to have a second IV. Pt states I do not want a second IV. Pt stated he was not experiencing any new symptoms at this time. Pt appears to be laying comfortably in bed. Pt states this happened to me about a week ago. New orders entered by Dr. Taveras at this time.
--- NOTE | 2025-02-23 08:14 | PCA ---
CALLED [facility] FOR AN UPDATED BED SAID IT WOULD BE EARLY THIS AM
--- NOTE | 2025-02-23 10:49 | PCA ---
CALLED BACK [facility] AT 1049 AND THEY SAID WE HAVE KNOW WAY OF KNOWING WHEN IT WILL BE. AFTER TELLING ME THIS AM @ 7 IT WOULD BE FIRST THING THIS AM
--- NOTE | 2025-02-23 14:47 | PCA ---
Addendum entered by Jeana Cortez 02/23/25 15:09: [facility] CALLED BACK, STATING PT INS IS OUT OF NETWORK SO NO LONGER ACCEPTED AND CANNOT BE TRANSFERRED. STATES THAT THEIR SUGGESTION PER INS IS [facility]. INFORMATION RELAYED TO MD. MD HANDING PT OFF TO DIFFERENT PROVIDER. AWAITING CONSULT BETWEEN PROVIDERS AND PT BEFORE INITIATING A NEW TRANSFER. Original Note: MD REQUESTS CALL TRANSFER CENTER BACK AND DO AN ED TO ED TRANSFER, TRANSFER CENTER CALLS BACK AND SAYS PT IS POSSIBLY OUT OF INSURANCE NETWORK, WAITING A CALL BACK. FAXED INSURANCE CARDS TO .
--- NOTE | 2025-02-23 15:38 | ED.RN ---
Verbal order per Dr Crouch- pause dobutamine drip.
--- NOTE | 2025-02-23 17:49 | PCA ---
PT ACCEPTED AT [facility] MA[facility] G81 BED 35 [address] [phone] DR. GRIFFIN. SETTING UP LOCAL TRANSPORT.
--- NOTE | 2025-02-23 19:46 | ED.RN ---
Report called to [facility].
== END 2025-02-23 19:35 | disposition other institution (70) ==
PROVIDERS: Internal Medicine; Emergency Provider Emergency Medicine; PCP Family Medicine; Visit Provider Emergency Medicine
DX: R57.0 Cardiogenic shock (principal); I13.0 Hypertensive heart and chronic kidney disease with heart failure and stage 1 through stage 4 chronic kidney disease, or unspecified chronic kidney disease; I50.20 Unspecified systolic (congestive) heart failure; I48.20 Chronic atrial fibrillation, unspecified; I42.8 Other cardiomyopathies; N18.32 Chronic kidney disease, stage 3b; Z79.01 Long term (current) use of anticoagulants; Z86.718 Personal history of other venous thrombosis and embolism; R07.9 Chest pain, unspecified; Z79.899 Other long term (current) drug therapy; I95.9 Hypotension, unspecified; R05.9 Cough, unspecified
CPT/HCPCS: 71046; 80048; 83605; 83880; 84484; 85025; 92960; 93005; 96361; 96365; 96366; 99152; 99285; A4216

== ENCOUNTER 2025-03-15 11:22 | Inpatient (IN) | payer OTHER, SELFPAY ==
[2025-03-15] VITALS (12 sets, daily range): BP systolic 91–110; BP diastolic 71–98; PULSE 96–107; RESP 12–29; TEMP 36.4–37.1; O2SAT 95–100; BMI 22.8; BMI 21.7
--- NOTE | 2025-03-15 11:29 | EKG12_ITS ---
Test Reason : SOB Blood Pressure : */* mmHG Vent. Rate : 99 BPM Atrial Rate : 99 BPM P-R Int : 152 ms QRS Dur : 144 ms QT Int : 422 ms P-R-T Axes : 68 206 -8 degrees QTcB Int : 541 ms Sinus rhythm with Fusion complexes Right superior axis deviation Non-specific intra-ventricular conduction block Cannot rule out Anteroseptal infarct , age undetermined Abnormal ECG Confirmed by JULIETTE ADAMSON MD ([id number]), loan expeditor AGUSTÍN KIDD ([id number]) on 03/16/2025 9:39:31 AM Referred By: Confirmed By: JULIETTE ADAMSON MD
--- NOTE | 2025-03-15 11:36 | CT_ITS ---
PROCEDURE: ABDOMEN/PELVIS W IV CONT ONLY 03/15/2025 REASON FOR EXAM: N/V/ BLOATING TECHNIQUE: Procedure Code: [id number] Modality: CT Procedure: ABDOMEN/PELVIS W IV CONT ONLY Coronal and Sagittal reconstruction series were provided. CONTRAST: Isovue-300 VOLUME: 75 mL One or more dose reduction techniques were used (e.g., Automated exposure control, adjustment of the mA and/or kV according to patient size, use of iterative reconstruction technique. RADIATION DOSE SUMMARY: CTDlvol: 14.7 mGy DLP: 673.59 mGycm COMPARISON: Prior study dated February 13, 2025. FINDINGS: Lung bases: Stable round atelectasis and/or infiltrate in the right lower lobe. Cardiomegaly. Diffuse ascites. Liver: Diffuse fatty infiltration. Hepatomegaly. Gallbladder: Gallbladder is contracted. Kiera cholecystic fluid. Spleen: Normal size. Pancreas: Diffuse fatty atrophy. Adrenals: Unremarkable Kidneys: Normal renal sizes. No hydronephrosis. Bladder: Unremarkable Bowel: Nonspecific bowel gas pattern. Appendix: The appendix is not identified. There is no inflammatory process identified in the right lower quadrant to suggest appendicitis. Lymph nodes: Unremarkable. Vasculature: The abdominal aorta and IVC are normal. Peritoneum / Retroperitoneum: Marked degree of ascites. Bones: Straightening of the normal lumbar lordosis. CT/Abdomen/Pelvis W IV Cont ONLY IMPRESSION: Diffuse ascites. Hepatomegaly and diffuse fatty infiltration of the liver. Rounded atelectasis and/or infiltrate at the right lung base. Reading Location: [place] [id number]
--- NOTE | 2025-03-15 11:37 | EDS_ITS ---
HPI History of Present Illness Chief Complaint: Shortness of Breath Narrative Narrative: Patient is a 45-year-old male with past medical history of atrial fibrillation on Eliquis, congestive heart failure, abdominal ascites, chronic kidney disease, cardiomyopathy who presents to the emergency department chief complaint shortness of breath and feeling of bloating. Patient states that for the last few days he has had worsening shortness of breath with exertion and he states that the last time he here he was transferred and notes that the other hospital did not do anything that the hospital here could not do he states that they gave him Lasix for 6 days and then discharged home. He states that he has required paracentesis in the past and feels like he needs this again. He states that he feels very bloated and states that he has nausea and vomiting after he tries to eat something and cannot keep anything down which also started recently. [facility] Medical History Cirrhosis Hypertension Medical non-compliance Chronic anticoagulation Chronic atrial fibrillation Hyperbilirubinemia Respiratory insufficiency Hypoxia Abdominal ascites Left ventricular ejection fraction less than 20% Heart block Abdominal ascites Kidney disease Non-smoker Irregular heart beat DVT (deep venous thrombosis) CKD stage 3b, GFR 30-44 ml/min Elevated bilirubin HFrEF (heart failure with reduced ejection fraction) CKD (chronic kidney disease) Cardiomyopathy Left bundle branch block Noncompliance Pulmonary embolism CHF (congestive heart failure) Home Medications ?Medication ?Instructions ?Recorded ?Last Taken ?Type apixaban 5 mg tablet (Eliquis) 5 mg PO BID blood thinn er 01/04/25 02/21/25 History bumetanide 1 mg tablet 1 mg PO BID water retention 01/04/25 02/21/25 History isosorbide dinitrate 20 mg tablet 20 mg PO Q8H heart 0 01/04/25 02/21/25 History lisinopril 5 mg tablet 5 mg PO DAILY #30 tabs 02/1602/21/25 Rx metoprolol tartrate 25 mg tablet 12.5 mg (1/2 x 25 mg) PO BID #30 02/16/25 02/21/25 Rx tabs Allergy/AdvReac Type Severity Reaction Status Date / Time No Known Allergies Allergy Verified 03/15/25 11:23 Family History Father Heart disease Brother Heart disease Social History Smoking Status: Never smoker alcohol intake: never substance use type: does not use ROS ROS ED ROS Narrative Constitutional: Denies fevers, chills, headaches, lightness, dizziness Eyes: Denies double vision Cardiovascular: Denies chest pain Respiratory: No shortness of breath Abdomen: Complains of abdominal distention nausea and vomiting as noted above states that he had diarrhea yesterday : Denies any urinary symptoms Neurological: Denies numbness, weakness, tingling Musculoskeletal: Denies back pain Skin: Denies any rashes or lesions EXAM Physical Exam Narrative Exam Narrative: General: Patient is lying in bed rest comfortably do not appear to be in acute distress Head: Atraumatic, normocephalic Eyes: PERRL bilaterally, EOMI bilaterally, no conjunctival injection noted Neck: Soft, supple, trachea midline Cardiovascular: Regular rate and rhythm no murmurs gallops rubs noted Respiratory: Diminished breath sounds bilaterally Abdomen: Soft, distended, diffuse tenderness palpation no rebound or guarding on exam Extremities: +5/5 strength noted in the bilateral lower extremities Neurological: Patient Commands knew he was at [facility] the year is 2024 Skin: Warm, dry, intact no rashes or lesions noted Const Vital Signs: 03/15/25 11:24 03/15/25 11:28 03/15/25 11:29 Temperature 98.7 F 98.8 F Temperature Source Oral Oral Pulse Rate 97 102 H Respiratory Rate 18 22 H Respiratory Effort Respiratory Depth Respiratory Pattern Blood Pressure 91/71 99/87 H Blood Pressure Mean 77 91 Pulse Ox 100 95 100 Oxygen Delivery Method Room Air Room Air Room Air 03/15/25 11:31 03/15/25 12:21 03/15/25 13:00 Temperature 98.1 F 98.1 F Temperature Source Oral Oral Pulse Rate 102 H 100 Respiratory Rate 25 H 17 Respiratory Effort Short of Breath Labored Respiratory Depth Shallow Respiratory Pattern Normal Blood Pressure 107/95 H 105/93 H Blood Pressure Mean 99 97 Pulse Ox 100 100 Oxygen Delivery Method Room Air Room Air Room Air 03/15/25 14:00 03/15/25 15:00 03/15/25 15:00 Temperature 98.1 F 98.1 F Temperature Source Oral Oral Pulse Rate 107 H 107 H Respiratory Rate 29 H 25 H Respiratory Effort Respiratory Depth Respiratory Pattern Blood Pressure 102/91 H 102/91 H 102/91 H Blood Pressure Mean 94 94 94 Pulse Ox 96 100 Oxygen Delivery Method Room Air Room Air MDM MDM MDM Narrative Medical decision making narrative: Patient is a 45-year-old male who presents to the emergency department chief complaint of nausea, vomiting not tolerating oral intake and the feeling of bloated as well as shortness of breath. On the differential diagnose includes but limited to CHF exacerbation, intra-abdominal ascites, viral gastroenteritis. Once workup is obtained reviewed he will be reevaluated. Patient's echocardiogram from 01/21/2025 was reviewed from outside record which showed ejection fraction of 15?5% Patient's CBC reviewed which showed no evidence leukocytosis white blood count normal at 6.9, he was 12.1, plate count normal at 259. Patient sodium is 140, potassium of 4.7, creatinine was elevated 2.21 however this is around his baseline he has underlying chronic kidney disease. Patient's total Ryan elevated total bilirubin elevated to 3.36 however this is chronically elevated when compared to previous blood draws as well. Patient AST and ALT were normal at 34 and 26 respectively. Patient troponin was 43 however proBNP elevated to 33,000 609. Patient lipase normal at 13. Patient's chest x-ray reviewed by myself and by radiology which showed cardiac enlargement. Patient CT ab pelvis IV contrast reviewed to show diffuse ascites hepatomegaly and diffuse fatty infiltration of the liver. Rounded atelectasis and/or infiltrate at the right lung base. At this point in time we will discuss case with hospitalist Dr. Tang for admission for paracentesis and worsening dyspnea exertion as well as nausea and vomiting not tolerating oral intake. Discussed case with hospitalist Dr. Tang who accept patient for admission. Patient notified is agreeable this plan all question concerns answered. Lab Data Labs: Laboratory Results - last 24 hr 03/15/25 03/15/25 12:30 14:55 WBC 6.9 RBC 3.59 L Hgb 12.1 L Hct 37.6 L MCV 104.7 H MCH 33.7 H MCHC 32.2 RDW Std Deviation 65.3 H RDW Coeff of Juan 17.1 H Plt Count 259 MPV 9.8 Immature Gran % (Auto) 0.300 Neut % (Auto) 62.0 Lymph % (Auto) 28.0 [place] % (Auto) 8.9 Eos % (Auto) 0.1 Baso % (Auto) 0.7 Absolute Neuts (auto) 4.3 Absolute Lymphs (auto) 1.94 Nucleated RBC % 0 Anisocytosis RARE Sodium 140 Potassium 4.7 Chloride 104 Carbon Dioxide 18.0 L Anion Gap 18 H BUN 33 H Creatinine 2.21 H Estim Creat Clear Calc 45.94 L Est GFR (MDRD) Non-Af 36 L BUN/Creatinine Ratio 14.8 Glucose 100 H Calcium 9.1 Total Bilirubin 3.36 H Direct Bilirubin 1.79 H AST 34 ALT 26 Alkaline Phosphatase 359 H Troponin T High Sens 43 H D Troponin T Hi Sens 2 Hr 43 [place] [address] H Total Protein 6.5 Albumin 3.3 L Globulin 3.2 Lipase 13 Radiography Diagnostic Testing: Clinical Impression(s) from Imaging Studies Abdomen/Pelvis CT 03/15/25 11:36 IMPRESSION: Diffuse ascites. Hepatomegaly and diffuse fatty infiltration of the liver. Rounded atelectasis and/or infiltrate at the right lung base. Reading Location: [facility] Chest X-Ray 03/15/25 14:33 IMPRESSION: Cardiac enlargement Reading Location: [id number] Discharge Plan Triage Chief Complaint: Shortness of Breath ED Provider: Vargas Rea Dx/Rx/DC Orders Clinical Impression: Abdominal distension, Ascites, Congestive heart failure, Nausea & vomiting, Dyspnea on exertion Prescriptions: No Action isosorbide dinitrate 20 mg tablet 20 mg PO Q8H bumetanide 1 mg tablet 1 mg PO BID Eliquis 5 mg tablet 5 mg PO BID lisinopril 5 mg Tablet 5 mg PO DAILY Qty: 30 0RF metoprolol tartrate 25 mg Tablet 12.5 mg PO BID Qty: 30 0RF Primary Care Provider: Rosaline Ash Referrals: Rosaline Ash, DO [Primary Care Provider] - Print Language: Frisian Disposition Disposition: Acute Care [facility]
[2025-03-15] MEDS: Lidocaine 5% Patch 1 PATCH TOPICAL (12:14)
[2025-03-15 12:39] LABS: Hematocrit 37.6 % (40-54); Hemoglobin 12.1 g/dL (13.0-16.5); Immature Granulocytes Count 0.020 X10^3/uL (0.0-0.0); Mean Corp Hgb Conc 32.2 g/dL (32-36); Mean Corpuscular Volume 104.7 fL (80-94); Mean Platelet Vol. 9.8 fl (6.2-12.0); NRBC Flagged by Analyzer 0 % (0-5); POSITIVE MORPHOLOGY YES; Platelet Count 259 K/mm3 (150-450); RBC Distribution Width CV 17.1 % (11.6-14.6); RBC Distribution Width SD 65.3 fl (35.1-43.9); Red Blood Count 3.59 M/mm3 (4.6-6.2); White Blood Count 6.9 K/mm3 (4.4-11.0)
[2025-03-15 12:40] LABS: Differential Indicated SCAN CRITERIA MET
[2025-03-15 13:07] LABS: Anisocytosis RARE
[2025-03-15 13:14] LABS: Lipase 13 U/L (13-75)
[2025-03-15 13:40] LABS: Pro- Brain NATRIURETIC PEPTIDE 33609 pg/mL (<=450); Troponin T High Sensitivity 43 ng/L (<=22)
[2025-03-15 13:52] LABS: AST(SGOT) 34 U/L (<=37); Alanine Aminotransfer ALT/SGPT 26 U/L (<=46); Albumin, Serum 3.3 g/dL (3.5-5.0); Alkaline Phosphatase 359 U/L (40-129); Anion Gap 18 (5-15); BUN 33 mg/dL (4-19); BUN/Creat Ratio 14.8 RATIO (10-20); Bilirubin, Direct 1.79 mg/dL (0.00-0.30); Calcium,Total 9.1 mg/dL (7.6-11.0); Carbon Dioxide 18.0 mmol/L (21.0-32.0); Chloride 104 mmol/L (98-108); Estimated Creatinine Clearance 45.94 ml/min (50-250); Globulin 3.2 g/dL (2.2-4.2); Glucose 100 mg/dL (70-99); Potassium 4.7 mmol/L (3.3-5.1)
--- NOTE | 2025-03-15 14:33 | RAD_ITS ---
PROCEDURE: CHEST PA AND LATERAL 03/15/2025 REASON FOR EXAM: SOB TECHNIQUE: Procedure Code: RADCXR Modality: DX Procedure: CHEST PA AND LATERAL COMPARISON: None FINDINGS: The image is lordotic. Hardware: EKG leads are present. Monitoring device is present overlying the left upper chest. Heart: Enlarged Mediastinum: Normal Lungs: Clear. No pneumothorax or pleural effusion. Bones: Degenerative changes are identified within the thoracic spine. Small cervical ribs are seen RAD/Chest PA and Lateral IMPRESSION: Cardiac enlargement Reading Location: [id number]
[2025-03-15] MEDS: 0.9% Normal Saline (1000mL) 1,000 ML 75 ML IV (15:20)
--- NOTE | 2025-03-15 15:24 | ED.RN ---
Per Dr Rea- due to elevated BNP, ok to start fluids at lower rate of 75 Ml/hr.
--- NOTE | 2025-03-15 15:39 | ED.RN ---
Dr Rea notified of sepsis alert
[2025-03-15 15:44] LABS: Troponin T High Sens 2 HR 43 ng/L (<=22)
--- NOTE | 2025-03-15 16:23 | ED.RN ---
Pt refusing IV fluids. Fluids stopped
[2025-03-15 16:50] LABS: Troponin T High Sens 4 HR 43 ng/L (<=22)
--- NOTE | 2025-03-15 17:29 | HP.PCM.HOS_ITS ---
HPI - General General Date of Admission: 03/15/25 Date of Service: 03/15/25 Chief Complaint: Abd distention HPI Narrative CLAIRE MEDINA, is a 45-year-old male history of A-fib on Eliquis, cirrhosis with ascites, heart failure with reduced ejection fraction nonischemic, CKD presented to [facility] ED 03/15/2025 reporting feeling bloated and. For the last few days he has had increased shortness of breath on exertion. Was here previously and was transferred to another hospital but he reports they just gave him Lasix for 6 days and discharged him home. He has required paracentesis in the past and feels he needs this again. He is very bloated. In the ED temp 98.7, heart rate 97 with blood pressure initially 91/71 which then increased to 107/95, respiratory rate on arrival 18 with pulse ox 100% on room air. CBC with white count 6.9, hemoglobin 12.1, platelet count 259. BMP with BUN of 33 and a creatinine of 2.21, does have a slightly low bicarb and an increasing gap but these are actually down from January. Liver profile with a total bili of 3.36 and a direct bili 1.79, alk phos 359 within normal AST and ALT. Albumin of 3.3. Lipase 13. proBNP 33,000 slightly up from 02/22/25 when it was 29,000, troponin of 43. Chest x-ray demonstrated cardiac enlargement. CT of the abdomen and pelvis with diffuse ascites, hepatomegaly and diffuse fatty infiltration of the liver and rounded atelectasis and/or infiltrate at right lung base. Patient was vitally stable but was having symptoms from his ascites and hospitalist contacted for admission for paracentesis and diuresis. Patient evaluated at bedside, reports shortness of breath and cough that is not productive that is chronic and they are every day, denies any change in that, reports he is specifically here because starting Friday or he noticed he began having increased swelling in his abdomen consistent with previous symptoms requiring paracentesis. Notes he is just uncomfortable in general, had 1 episode of small-volume diarrhea and vomiting yesterday but that is no longer present. Does note after a CT scan in the ED he came back up and had an episode of vomiting and reports this happens when he gets the IV contrast. No longer feeling nauseous. Denies any chest pain, he is unsure what medications were changed when he was admitted to [facility] but he notes that his water pill was changed to torsemide and feels his lower extremities are actually less swollen than usual. No other new or acute complaints. [facility] Medical History Cirrhosis Hypertension Medical non-compliance Chronic anticoagulation Chronic atrial fibrillation Hyperbilirubinemia Respiratory insufficiency Hypoxia Abdominal ascites Left ventricular ejection fraction less than 20% Heart block Abdominal ascites Kidney disease Non-smoker Irregular heart beat DVT (deep venous thrombosis) CKD stage 3b, GFR 30-44 ml/min Elevated bilirubin HFrEF (heart failure with reduced ejection fraction) CKD (chronic kidney disease) Cardiomyopathy Left bundle branch block Noncompliance Pulmonary embolism CHF (congestive heart failure) Home Medications ?Medication ?Instructions ?Recorded ?Last Taken ?Type apixaban 5 mg tablet (Eliquis) 5 mg PO BID blood thinn er 01/04/25 03/14/25 History metoprolol tartrate 25 mg tablet 12.5 mg (1/2 x 25 mg) PO BID #30 02/16/25 03/14/25 Rx tabs torsemide 100 mg tablet 100 mg PO Q12.TCU 03/15/25 0 03/14/25 History Allergy/AdvReac Type Severity Reaction Status Date / Time No Known Allergies Allergy Verified 03/15/25 11:23 Family History Father Heart disease Brother Heart disease Social History Smoking Status: Never smoker alcohol intake: never substance use type: does not use ROS ROS Narrative General: Denies fever/chills HENT: Denies headache, denies stuffy nose, denies sore throat EYES: Denies changes in vision Resp: Dry cough, shortness of breath but is unchanged from baseline Cardiac: Denies chest pain GI: Abdominal distention and general discomfort, 1 episode of vomiting yesterday and 1 today associated with IV contrast, 1 episode of small amount of diarrhea yesterday : Denies changes in urination Extremity: Improved swelling lower extremities MSK: Denies weakness Neuro: Denies any numbness/tingling Heme: Denies any bleeding or bruising Skin: Denies rashes Psychiatric: No complaints voiced Vital Signs Vital Signs Vital Signs: 03/15/25 11:24 03/15/25 11:28 03/15/25 11:29 Temperature 98.7 F 98.8 F Temperature Source Oral Oral Pulse Rate 97 102 H Respiratory Rate 18 22 H Respiratory Effort Respiratory Depth Respiratory Pattern Blood Pressure 91/71 99/87 H Blood Pressure Mean 77 91 Pulse Ox 100 95 100 Oxygen Delivery Method Room Air Room Air Room Air 03/15/25 11:31 03/15/25 12:21 03/15/25 13:00 Temperature 98.1 F 98.1 F Temperature Source Oral Oral Pulse Rate 102 H 100 Respiratory Rate 25 H 17 Respiratory Effort Short of Breath Labored Respiratory Depth Shallow Respiratory Pattern Normal Blood Pressure 107/95 H 105/93 H Blood Pressure Mean 99 97 Pulse Ox 100 100 Oxygen Delivery Method Room Air Room Air Room Air 03/15/25 14:00 03/15/25 15:00 03/15/25 15:00 Temperature 98.1 F 98.1 F Temperature Source Oral Oral Pulse Rate 107 H 107 H Respiratory Rate 29 H 25 H Respiratory Effort Respiratory Depth Respiratory Pattern Blood Pressure 102/91 H 102/91 H 102/91 H Blood Pressure Mean 94 94 94 Pulse Ox 96 100 Oxygen Delivery Method Room Air Room Air 03/15/25 16:21 03/15/25 17:00 Temperature 98.1 F Temperature Source Pulse Rate 99 96 Respiratory Rate 18 12 Respiratory Effort Respiratory Depth Respiratory Pattern Blood Pressure 108/91 H 109/98 H Blood Pressure Mean 96 101 Pulse Ox 100 Oxygen Delivery Method Weight Weight: 78.6 kg Body Mass Index (BMI) 22.8 Physical Exam Narrative General: Alert, oriented, no apparent distress HEENT: Atraumatic, normocephalic Eyes: Anicteric, normal conjunctiva, extraocular movements grossly intact Neck: Supple Respiratory: No overt wheezes or rhonchi, normal respiratory effort Cardiovascular: Regular rate, does have some ectopy noted GI: Distended but still fairly soft, did not seem to be tender on my evaluation, no rigidity, rebound, guarding Extremities: 1-2+ lower extremity pitting edema Musculoskeletal: Moving all extremities Neuro: No overt focal neurological deficits Skin: No rashes appreciated Psych: Cooperative Results Lab / Micro Data 03/15/25 12:30 03/15/25 12:30 Labs: Laboratory Results - last 24 hr 03/15/25 12:30: WBC 6.9, RBC 3.59 L, Hgb 12.1 L, Hct 37.6 L, MCV 104.7 H, MCH 33.7 H, MCHC 32.2, RDW Std Deviation 65.3 H, RDW Coeff of Juan 17.1 H, Plt Count 259, MPV 9.8, Immature Gran % (Auto) 0.300, Neut % (Auto) 62.0, Lymph % (Auto) 28.0, [place] % (Auto) 8.9, Eos % (Auto) 0.1, Baso % (Auto) 0.7, Absolute Neuts (auto) 4.3, Absolute Lymphs (auto) 1.94, Nucleated RBC % 0, Anisocytosis RARE, Sodium 140, Potassium 4.7, Chloride 104, Carbon Dioxide 18.0 L, Anion Gap 18 H, BUN 33 H, Creatinine 2.21 H, Estim Creat Clear Calc 45.94 L, Est GFR (MDRD) Non- Af 36 L, BUN/Creatinine Ratio 14.8, Glucose 100 H, Calcium 9.1, Total Bilirubin 3.36 H, Direct Bilirubin 1.79 H, AST 34, ALT 26, Alkaline Phosphatase 359 H, T roponin T High Sens 43 H D, [place] [address] H, Total Protein 6.5, Albumin 3.3 L, Globulin 3.2, Lipase 13 03/15/25 14:55: Troponin T Hi Sens 2 Hr 43 H 03/15/25 16:28: Troponin T Hi Sens 4Hr 43 H Imaging Radiology Impression Abdomen/Pelvis CT 03/15/25 11:36 IMPRESSION: Diffuse ascites. Hepatomegaly and diffuse fatty infiltration of the liver. Rounded atelectasis and/or infiltrate at the right lung base. Reading Location: [facility] Chest X-Ray 03/15/25 14:33 IMPRESSION: Cardiac enlargement Reading Location: [id number] Assessment & Plan Assessment/Plan (1) Ascites: PLAN: Plan # Abdominal ascites -Suspect cardiac cirrhosis - Patient has recurrent large-volume abdominal ascites which was confirmed on CT scan, has had therapeutic paracentesis previously with most recent at [facility] when he was admitted there with improvement -Will order paracentesis w/ basic fluid studies -Supportive care -Continue home diuretics, his BNP is similar to previous and notes that breathing is at baseline and legs are actually less swollen than usual -Will monitor daily weights and I's and O's -Low threshold for IV Lasix however patient primarily needs paracentesis based on interview and exam #Chronic heart failure with reduced ejection fraction -Daily weights -I's and O's -Heart healthy diet -Fluid restriction -Continue patients home medications #Right base ?atelectasis - CT queried atelectasis versus an infiltrate -Patient reports dry cough that he tends to get when he has increased abdominal distention, denies any productive cough -Reports that shortness of breath is at baseline -Is a somewhat poor historian however will obtain Pro-Omkar, if elevated will start on antibiotics and if not can watch closely -Incentive spirometer #Hx afib -Continue metoprolol -Hold Eliquis as pt will have paracentesis -Will need resumed # CKD stage III b - Creatinine still elevated/BMP still abnormal however is actually improved from previous -Avoid nephrotoxic agents -Continue home diuresis -Daily BMPs #DVT ppx: SCDs Margarita Tang MD Charges/Coding Multi Select Codes Visit Charges Visit Charges: 70399 Init Hosp L2
[2025-03-15 18:19] LABS: Procalcitonin 0.63 ng/mL (<=0.10)
--- NOTE | 2025-03-15 18:50 | PCM.HOSP.N ---
Hospitalist Note Pro-Omkar is elevated, given this with imaging findings and patient's cough will start on Rocephin and azithromycin, do feel this will be sufficient coverage for patient. Will check respiratory panel, sputum culture if able, and urine antigens
[2025-03-16 01:52] VITALS: BP 101/64; PULSE 88; RESP 14; TEMP 36.4; O2SAT 100
[2025-03-16 05:41] VITALS: BMI 22.6
[2025-03-16 05:52] LABS: AST(SGOT) 27 U/L (<=37); Alanine Aminotransfer ALT/SGPT 23 U/L (<=46); Albumin, Serum 3.1 g/dL (3.5-5.0); Alkaline Phosphatase 343 U/L (40-129); Anion Gap 17 (5-15); BUN 34 mg/dL (4-19); BUN/Creat Ratio 15.9 RATIO (10-20); Calcium,Total 8.7 mg/dL (7.6-11.0); Carbon Dioxide 18.1 mmol/L (21.0-32.0); Chloride 105 mmol/L (98-108); Estimated Creatinine Clearance 47.52 ml/min (50-250); Globulin 2.7 g/dL (2.2-4.2); Glucose 92 mg/dL (70-99); Magnesium 2.6 mg/dL (1.5-2.2); Potassium 4.5 mmol/L (3.3-5.1)
[2025-03-16 06:00] LABS: Hematocrit 36.5 % (40-54); Hemoglobin 11.8 g/dL (13.0-16.5); Immature Granulocytes Count 0.010 X10^3/uL (0.0-0.0); Mean Corp Hgb Conc 32.3 g/dL (32-36); Mean Corpuscular Volume 102.5 fL (80-94); Mean Platelet Vol. 9.9 fl (6.2-12.0); NRBC Flagged by Analyzer 0 % (0-5); Platelet Count 263 K/mm3 (150-450); RBC Distribution Width CV 17.0 % (11.6-14.6); RBC Distribution Width SD 63.5 fl (35.1-43.9); Red Blood Count 3.56 M/mm3 (4.6-6.2); White Blood Count 6.0 K/mm3 (4.4-11.0)
--- NOTE | 2025-03-16 07:28 | PCM.PN.HOSP ---
Reason for Visit Chief Complaint: Abd distention Objective Data Objective Data Vital Signs: Vital Signs Temp Pulse Resp BP Pulse Ox O2 Del Method 97.6 F L 88 14 101/64 100 Room Air 03/16/25 01:52 03/16/25 01:52 03/16/25 01:52 03/16/25 01:52 03/16/25 01:52 03/16/25 04:50 Oxygen Delivery Method Room Air Weight: 171 lb 15.369 oz Body Mass Index (BMI) 22.6 Intake & Output: Intake and Output for Last 24 Hours 03/14/25 03/15/25 03/16/25 23:59 23:59 23:59 Intake Total 78.75 / 128.75 150 / 150 Balance 78.75 / 128.75 150 / 150 Lab / Micro Data 03/16/25 04:40 03/16/25 04:40 Labs: Laboratory Results - last 24 hr 03/15/25 12:30: WBC 6.9, RBC 3.59 L, Hgb 12.1 L, Hct 37.6 L, MCV 104.7 H, MCH 33.7 H, MCHC 32.2, RDW Std Deviation 65.3 H, RDW Coeff of Juan 17.1 H, Plt Count 259, MPV 9.8, Immature Gran % (Auto) 0.300, Neut % (Auto) 62.0, Lymph % (Auto) 28.0, [place] % (Auto) 8.9, Eos % (Auto) 0.1, Baso % (Auto) 0.7, Absolute Neuts (auto) 4.3, Absolute Lymphs (auto) 1.94, Nucleated RBC % 0, Anisocytosis RARE, Sodium 140, Potassium 4.7, Chloride 104, Carbon Dioxide 18.0 L, Anion Gap 18 H, BUN 33 H, Creatinine 2.21 H, Estim Creat Clear Calc 45.94 L, Est GFR (MDRD) Non-Af 36 L, BUN/Creatinine Ratio 14.8, Glucose 100 H, Calcium 9.1, Total Bilirubin 3.36 H, Direct Bilirubin 1.79 H, AST 34, ALT 26, Alkaline Phosphatase 359 H, Troponin T High Sens 43 H D, [place] [address] H, Total Protein 6.5, Albumin 3.3 L, Globulin 3.2, Lipase 13 03/15/25 14:55: Troponin T Hi Sens 2 Hr 43 H 03/15/25 16:28: Troponin T Hi Sens 4Hr 43 H, Procalcitonin 0.63 H 03/16/25 04:40: WBC 6.0, RBC 3.56 L, Hgb 11.8 L, Hct 36.5 L, MCV 102.5 H, MCH 33.1 H, MCHC 32.3, RDW Std Deviation 63.5 H, RDW Coeff of Juan 17.0 H, Plt Count 263, MPV 9.9, Immature Gran % (Auto) 0.200, Neut % (Auto) 57.0, Lymph % (Auto) 31.0, [place] % (Auto) 10.6 H, Eos % (Auto) 0.5, Baso % (Auto) 0.7, Absolute Neuts (auto) 3.4, Absolute Lymphs (auto) 1.85, Nucleated RBC % 0, Sodium 140, Potassium 4.5, Chloride 105, Carbon Dioxide 18.1 L, Anion Gap 17 H, BUN 34 H, Creatinine 2.12 H, Estim Creat Clear Calc 47.52 L, Est GFR (MDRD) Non-Af 38 L, BUN/Creatinine Ratio 15.9, Glucose 92, Calcium 8.7, Magnesium 2.6 H, Total Bilirubin 2.99 H, AST 27, ALT 23, Alkaline Phosphatase 343 H, Total Protein 5.8 L, Albumin 3.1 L, Globulin 2.7, Albumin/Globulin Ratio 1.1 Micro: Microbiology 03/15/25 23:51 Urine, Clean Catch Legionella Antigen - Final 03/15/25 23:51 Urine, Clean Catch Streptococcus pneumoniae Antigen (M - Final 03/15/25 20:03 Mucosa - Nasopharyngeal Respiratory Panel (PCR) - Final Radiography Diagnostic Testing: Radiology Impression Abdomen/Pelvis CT 03/15/25 11:36 IMPRESSION: Diffuse ascites. Hepatomegaly and diffuse fatty infiltration of the liver. Rounded atelectasis and/or infiltrate at the right lung base. Reading Location: [facility] Chest X-Ray 03/15/25 14:33 IMPRESSION: Cardiac enlargement Reading Location: [id number] Physical Exam Narrative Seen and examined. Patient said he has abdominal distention/swelling and shortness of breath and wants paracentesis. When tried to ask about further course of the disease, cirrhosis and elucidate its cardiac origin he said he is here for paracentesis and is not going to tell about his heart disease. On further asking he said he was diagnosed heart disease a year ago and you figure it out what it is. Patient reluctant to give history and gets very irritable and dismissive. His last dose of Eliquis was Friday morning. Physical exam General: Alert, Oriented x3, Cooperative. BMI 22.7 kg/m? HEENT: Atraumatic, PERRLA, EOMI, Normocephalic. Oral: No Gingival or Mucosal Lesions/ Ulcerations Neck: Supple, No JVD, Negative Carotid Bruits Chest wall/Lungs: Air entry diminished in bilateral lung bases. No crepitation/rhonchi Cardiovascular: Regular rate and rhythm, systolic murmur Abdomen: Bowel Sounds Present, Soft, Non Tender, abdominal distention/ascites : No dysuria. No renal angle tenderness. No suprapubic tenderness. Extremities: Mild pedal edema, Capillary Refill Less than 3 Seconds Skin: No rashes, No breakdown Musculoskeletal: No Tenderness to Palpation of Joints or Extremities Neurological: Cranial nerves II-XII grossly intact, DTR 2+/4. No acute focal neurological deficit. Psych/Mental Status: Normal Affect, Appropriate. Assessment & Plan Assessment/Plan (1) Ascites: PLAN: Plan 45-year-old gentleman was admitted with shortness of breath and abdominal distention feeling of bloating, started getting worse since last Friday or about 1 week. 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 - Patient has recurrent large-volume abdominal ascites which was confirmed on CT scan, has had therapeutic paracentesis previously 3 times with most recent at [facility] when he was admitted - Ultrasound-guided paracentesis ordered with lab tests -Continue home diuretics, his BNP is similar to previous and notes that breathing is at baseline. 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 Small less than 1 cm pericardial effusion. Heart failure core measures including intake and output, fluid restriction less than 1500 mL, daily weight monitoring, kidney and electrolytes monitoring. #Right base atelectasis as seen in CT scan: Patient has mild cough probably from diaphragm pushed up. No fever. No tachycardia. Patient pulse ox is 99 to 100% on room air. - Continue incentive spirometry #Hx afib -Continue metoprolol -Hold Eliquis as pt will have paracentesis - Discussed with radiology. Because of advanced kidney failure, will need 3 days off Eliquis before paracentesis. # CKD stage III b - Creatinine still elevated/BMP still abnormal however is actually improved from previous -Avoid nephrotoxic agents -Continue home diuresis - 03/16 creatinine 2.12 BUN 34, estimated creatinine clearance 47 mL/min #DVT ppx: SCDs Microbiology Past 72 Hours 03/15/25 23:51 Urine, Clean Catch Legionella Antigen - Final 03/15/25 23:51 Urine, Clean Catch Streptococcus pneumoniae Antigen (M - Final 03/15/25 20:03 Mucosa - Nasopharyngeal Respiratory Panel (PCR) - Final Laboratory Results 03/15/25 14:55: Troponin T Hi Sens 2 Hr 43 H 03/15/25 16:28: Troponin T Hi Sens 4Hr 43 H, Procalcitonin 0.63 H 03/16/25 04:40: WBC 6.0, RBC 3.56 L, Hgb 11.8 L, Hct 36.5 L, MCV 102.5 H, MCH 33.1 H, MCHC 32.3, RDW Std Deviation 63.5 H, RDW Coeff of Juan 17.0 H, Plt Count 263, MPV 9.9, Immature Gran % (Auto) 0.200, Neut % (Auto) 57.0, Lymph % (Auto) 31.0, [place] % (Auto) 10.6 H, Eos % (Auto) 0.5, Baso % (Auto) 0.7, Absolute Neuts (auto) 3.4, Absolute Lymphs (auto) 1.85, Nucleated RBC % 0, Sodium 140, Potassium 4.5, Chloride 105, Carbon Dioxide 18.1 L, Anion Gap 17 H, BUN 34 H, Creatinine 2.12 H, Estim Creat Clear Calc 47.52 L, Est GFR (MDRD) Non-Af 38 L, BUN/Creatinine Ratio 15.9, Glucose 92, Calcium 8.7, Magnesium 2.6 H, Total Bilirubin 2.99 H, Direct Bilirubin 1.83 H, AST 27, ALT 23, Alkaline Phosphatase 343 H, Total Protein 5.8 L, Albumin 3.1 L, Globulin 2.7, Albumin/Globulin Ratio 1.1 Clinical Impression(s) from Imaging Studies Abdomen/Pelvis CT 03/15/25 11:36 IMPRESSION: Diffuse ascites. Hepatomegaly and diffuse fatty infiltration of the liver. Rounded atelectasis and/or infiltrate at the right lung base. Chest X-Ray 03/15/25 14:33 IMPRESSION: Cardiac enlargement Reading Location: [facility] Echo December 2024 Interpretation Summary Severely dilated left ventricle. The left ventricular ejection fraction is 15 %. Stage 3 diastolic dysfunction. The inferior vena cava is dilated Mild (1+) aortic valve insufficiency. Small (<1.0 cm) pericardial effusion. Charges/Coding Visit Charges Inpatient E&M: 98847 Subs Hosp L2
[2025-03-16 08:00] VITALS: BP 101/88; PULSE 96; RESP 16; TEMP 36.7; O2SAT 99
[2025-03-16 08:24] LABS: Bilirubin, Direct 1.83 mg/dL (0.00-0.30)
[2025-03-16 09:44] VITALS: PULSE 98
[2025-03-16 14:00] VITALS: BP 100/83; PULSE 94; RESP 17; TEMP 37.1; O2SAT 99
--- NOTE | 2025-03-16 15:24 | CASEMGMT ---
CRISTINE MACIAS Readmission Note Previous Admission: 02/13/25-02/16/25 Diagnosis: AE CHF, resp insufficiency DC Disposition: Home Current Admission:Admitted 03/15/25 Current Diagnosis: ascites, abd discomfort Pt dc'd from index admission after dobutrex and adjustments to medications. Pt also had a paracentesis. Pt was dc'd to home. Pt admits this stay with ascites and abd discomfort. CRISTINE MACIAS into pt room, pt lying in bed on RA in no distress. Pt states that he was taking his medications as ordered at home. Pt states he was weighing himself until his scale broke. He is able to obtain a new scale. Pt states he is aware of disease processes and feels comfortable knowing what to report to physician. Pt does see at [facility]. Pt states he has not seen PCP or cardio since last stay. Pt is aware of importance of physician follow up post hospitalization. Pt states he needs a paracentesis now but cannot d/t being on a blood thinner. Pt reports being indep in ADLs and denies any homegoing needs. Discussed palliative care with patient and pt adamantly declined. Attempted to explain how this may be beneficial to him, pt denies need. DC Plan: Home
[2025-03-16] MEDS: Lidocaine 5% Patch 1 PATCH TOPICAL (17:53)
[2025-03-16 21:10] VITALS: BP 85/56; PULSE 94; RESP 18; TEMP 36.4; O2SAT 97
[2025-03-16 21:19] VITALS: BP 85/56; PULSE 94
[2025-03-17] VITALS (11 sets, daily range): BP systolic 91–112; BP diastolic 56–87; PULSE 80–97; RESP 16–18; TEMP 36.1–36.8; O2SAT 98–100; BMI 22.4
--- NOTE | 2025-03-17 | US_ITS ---
PROCEDURE: PARACENTESIS WITH US 03/17/2025 REASON FOR EXAM: ABDOMINAL ASCITES TECHNIQUE: PARACENTESIS WITH US The procedure as well as the benefits and possible complications including infection and bleeding were explained to the patient. Informed consent was obtained. The skin overlying the left lower quadrant was prepped and draped in the usual sterile fashion. Following local anesthetic application, a 5 Swazi catheter was placed into the abdominal cavity. 5100 mL of clear esther fluid was aspirated. The patient tolerated the procedure well. COMPARISON: February 16, 2025. FINDINGS: Successful paracentesis US/Paracentesis with US IMPRESSION: Successful paracentesis. The patient tolerated the procedure well. Reading Location: [facility]
[2025-03-17 05:48] LABS: Hematocrit 39.4 % (40-54); Hemoglobin 12.9 g/dL (13.0-16.5); Immature Granulocytes Count 0.020 X10^3/uL (0.0-0.0); Mean Corp Hgb Conc 32.7 g/dL (32-36); Mean Corpuscular Volume 101.8 fL (80-94); Mean Platelet Vol. 9.9 fl (6.2-12.0); NRBC Flagged by Analyzer 0 % (0-5); Platelet Count 278 K/mm3 (150-450); RBC Distribution Width CV 16.9 % (11.6-14.6); RBC Distribution Width SD 62.7 fl (35.1-43.9); Red Blood Count 3.87 M/mm3 (4.6-6.2); White Blood Count 6.1 K/mm3 (4.4-11.0)
[2025-03-17 06:35] LABS: AST(SGOT) 31 U/L (<=37); Alanine Aminotransfer ALT/SGPT 23 U/L (<=46); Albumin, Serum 3.3 g/dL (3.5-5.0); Alkaline Phosphatase 418 U/L (40-129); Anion Gap 17 (5-15); BUN 31 mg/dL (4-19); BUN/Creat Ratio 15.7 RATIO (10-20); Bilirubin, Direct 1.64 mg/dL (0.00-0.30); Calcium,Total 8.8 mg/dL (7.6-11.0); Carbon Dioxide 20.5 mmol/L (21.0-32.0); Chloride 103 mmol/L (98-108); Estimated Creatinine Clearance 49.86 ml/min (50-250); Globulin 3.1 g/dL (2.2-4.2); Glucose 92 mg/dL (70-99); Potassium 3.8 mmol/L (3.3-5.1)
--- NOTE | 2025-03-17 08:09 | PCM.PN.HOSP ---
Reason for Visit Chief Complaint: Abd distention Objective Data Objective Data Vital Signs: Vital Signs Temp Pulse Resp BP Pulse Ox O2 Del Method 98.0 F 90 16 96/81 H 100 Room Air 03/17/25 05:40 03/17/25 05:40 03/17/25 05:40 03/17/25 05:40 03/17/25 05:40 03/17/25 07:30 Oxygen Delivery Method Room Air Weight: 170 lb 3.15 oz Body Mass Index (BMI) 22.4 Intake & Output: Intake and Output for Last 24 Hours 03/15/25 03/16/25 03/17/25 23:59 23:59 23:59 Intake Total 78.75 / 128.75 390 / 640 250 / 250 Output Total 225 / 225 Balance 78.75 / 128.75 165 / 415 250 / 250 Lab / Micro Data 03/17/25 04:46 03/17/25 04:46 Labs: Laboratory Results - last 24 hr 03/16/25 04:40: Direct Bilirubin 1.83 H 03/17/25 04:46: WBC 6.1, RBC 3.87 L, Hgb 12.9 L, Hct 39.4 L, MCV 101.8 H, MCH 33.3 H, MCHC 32.7, RDW Std Deviation 62.7 H, RDW Coeff of Juan 16.9 H, Plt Count 278, MPV 9.9, Immature Gran % (Auto) 0.300, Neut % (Auto) 56.6, Lymph % (Auto) 31.8, [place] % (Auto) 10.3 H, Eos % (Auto) 0.3, Baso % (Auto) 0.7, Absolute Neuts (auto) 3.5, Absolute Lymphs (auto) 1.94, Nucleated RBC % 0, Sodium 140, Potassium 3.8, Chloride 103, Carbon Dioxide 20.5 L, Anion Gap 17 H, BUN 31 H, Creatinine 2.00 H, Estim Creat Clear Calc 49.86 L, Est GFR (MDRD) Non-Af 41 L, BUN/Creatinine Ratio 15.7, Glucose 92, Calcium 8.8, Total Bilirubin 2.72 H, Direct Bilirubin 1.64 H, AST 31, ALT 23, Alkaline Phosphatase 418 H, Total Protein 6.4, Albumin 3.3 L, Globulin 3.1 Micro: Microbiology 03/15/25 23:51 Urine, Clean Catch Legionella Antigen - Final 03/15/25 23:51 Urine, Clean Catch Streptococcus pneumoniae Antigen (M - Final 03/15/25 20:03 Mucosa - Nasopharyngeal Respiratory Panel (PCR) - Final Physical Exam Narrative Seen and examined. Plan for paracentesis today. No acute issues. On cardiac telemetry intermittent short runs of NSVT. No chest pain. Physical exam General: Alert, Oriented x3, Cooperative. BMI 22.7 kg/m? HEENT: Atraumatic, PERRLA, EOMI, Normocephalic. Oral: No Gingival or Mucosal Lesions/ Ulcerations Neck: Supple, No JVD, Negative Carotid Bruits Chest wall/Lungs: Air entry diminished in bilateral lung bases. No crepitation/rhonchi Cardiovascular: Regular rate and rhythm, systolic murmur Abdomen: Bowel Sounds Present, Soft, Non Tender, abdominal distention/ascites : No dysuria. No renal angle tenderness. No suprapubic tenderness. Extremities: Mild pedal edema, Capillary Refill Less than 3 Seconds Skin: No rashes, No breakdown Musculoskeletal: No Tenderness to Palpation of Joints or Extremities Neurological: Cranial nerves II-XII grossly intact, DTR 2+/4. No acute focal neurological deficit. Psych/Mental Status: Normal Affect, Appropriate. Assessment & Plan Assessment/Plan (1) Ascites: PLAN: Plan 45-year-old gentleman was admitted with shortness of breath and abdominal distention feeling of bloating, started getting worse since last Friday or about 1 week. His shortness of breath and nonproductivecough is chronic His last dose of Eliquis was Friday morning. 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 - Patient has recurrent large-volume abdominal ascites which was confirmed on CT scan, has had therapeutic paracentesis previously 3 times with most recent at [facility] when he was admitted - Ultrasound-guided paracentesis ordered with lab tests -Continue home diuretics, his BNP is similar to previous and notes that breathing is at baseline. -Will monitor daily weights and I's and O's 03/17: Total bili 2.72, direct 1.64, alkaline phosphatase 118, mainly detect hyperbilirubinemia. Hypoalbuminemia. Plan for paracentesis today. 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 Small less than 1 cm pericardial effusion. Heart failure core measures including intake and output, fluid restriction less than 1500 mL, daily weight monitoring, kidney and electrolytes monitoring. 03/17: On torsemide 100 mg twice daily. Metoprolol tartrate. Patient blood pressure is in the low 100s to upper 90s. Consider LURCECIA/ARB if BP permits #Right base atelectasis as seen in CT scan: Patient has mild cough probably from diaphragm pushed up. No fever. No tachycardia. Patient pulse ox is 99 to 100% on room air. - Continue incentive spirometry 03/17: Patient empirically on IV ceftriaxone and azithromycin. Urinary antigens are negative. Respiratory panel negative. Discontinue IV azithromycin. Continue IV ceftriaxone until SBP ruled out although low suspicion of SBP. #Hx afib -Continue metoprolol -Hold Eliquis as pt will have paracentesis - Discussed with radiology. Because of advanced kidney failure, will need 3 days off Eliquis before paracentesis. # CKD stage III b - Creatinine still elevated/BMP still abnormal however is actually improved from previous -Avoid nephrotoxic agents -Continue home diuresis - 03/16 creatinine 2.12 BUN 34, estimated creatinine clearance 47 mL/min 03/17: BUN/creatinine 31/2.0. #DVT ppx: SCDs Microbiology Past 72 Hours 03/15/25 23:51 Urine, Clean Catch Legionella Antigen - Final 03/15/25 23:51 Urine, Clean Catch Streptococcus pneumoniae Antigen (M - Final 03/15/25 20:03 Mucosa - Nasopharyngeal Respiratory Panel (PCR) - Final Laboratory Results 03/17/25 04:46: WBC 6.1, RBC 3.87 L, Hgb 12.9 L, Hct 39.4 L, MCV 101.8 H, MCH 33.3 H, MCHC 32.7, RDW Std Deviation 62.7 H, RDW Coeff of Juan 16.9 H, Plt Count 278, MPV 9.9, Immature Gran % (Auto) 0.300, Neut % (Auto) 56.6, Lymph % (Auto) 31.8, [place] % (Auto) 10.3 H, Eos % (Auto) 0.3, Baso % (Auto) 0.7, Absolute Neuts (auto) 3.5, Absolute Lymphs (auto) 1.94, Nucleated RBC % 0, Sodium 140, Potassium 3.8, Chloride 103, Carbon Dioxide 20.5 L, Anion Gap 17 H, BUN 31 H, Creatinine 2.00 H, Estim Creat Clear Calc 49.86 L, Est GFR (MDRD) Non-Af 41 L, BUN/Creatinine Ratio 15.7, Glucose 92, Calcium 8.8, Total Bilirubin 2.72 H, Direct Bilirubin 1.64 H, AST 31, ALT 23, Alkaline Phosphatase 418 H, Total Protein 6.4, Albumin 3.3 L, Globulin 3.1 Clinical Impression(s) from Imaging Studies Abdomen/Pelvis CT 03/15/25 11:36 IMPRESSION: Diffuse ascites. Hepatomegaly and diffuse fatty infiltration of the liver. Rounded atelectasis and/or infiltrate at the right lung base. Chest X-Ray 03/15/25 14:33 IMPRESSION: Cardiac enlargement Reading Location: [facility] Echo December 2024 Interpretation Summary Severely dilated left ventricle. The left ventricular ejection fraction is 15 %. Stage 3 diastolic dysfunction. The inferior vena cava is dilated Mild (1+) aortic valve insufficiency. Small (<1.0 cm) pericardial effusion. Charges/Coding Visit Charges Inpatient E&M: 90560 Subs Hosp L2
[2025-03-17] MEDS: Lidocaine 5% Patch 1 PATCH TOPICAL (10:13)
--- NOTE | 2025-03-17 13:30 | FLU_PTH ---
PATIENT: CLAIRE MEDINA LOC: [facility] U#:[id number] AGE/SX: 45/M ROOM: [facility] RE03/15/[address]: Dr. Phil Newell MD : 1980 BED: 1 DIS: 03/18/2025 SPEC #: [id number] RECD: 03/17/25 14:05 STATUS: JUAN REQ #: [id number] REJI: 03/17/25 13:[address]: Phil Newell DEPT: CYTOLOGY RECD BY: Joe Ramos ENTERED: 03/18/25 10:41 SP TYPE: Fluid OTHR DR: MD Rosaline Villeda, [facility], DO Tissues: A - PARACENTESIS FLUID Procedures: Special Stain Group II Surgery Specimen Level IV Cytospin Fluid HEADER OPERATION: Ultrasound guided paracentesis PRE-OP DIAGNOSIS: Ascites TISSUE SUBMITTED: A- Paracentesis fluid for cytology DIAGNOSIS CYTOLOGY A. Ascites, paracentesis (cytospin, cellblock): * No malignant cells identified. CYTOLOGY STUDY Slides are reviewed. CYTOLOGY GROSS A. Received is 80 ml of cloudy-yellow fluid labeled with the patient's name and and designated per the requisition as Paracentesis fluid. Submitted for cytology and cell block preparation. 03/18/2025 CPT: 22865,74152
[2025-03-17] MEDS: Lidocaine 2% (20 ml mdv) 20 ML Vial INFILT (13:34)
[2025-03-17 14:12] LABS: Cytology, Body Fluid / CSF SEE PATHOLOGY REPORT
[2025-03-17 15:05] LABS: Body Fluid Mononuclear WBC # 0.060 10^3/uL; Body Fluid Mononuclear WBC % 83.4 %; Body Fluid Polynuclear WBC # 0.012 10^3/uL; Body Fluid Polynuclear WBC % 16.6 %; White Blood Count/Body Fluid 0.072 10^3/uL
[2025-03-17 15:26] LABS: Glucose, Body Fluid 133 mg/dL (Not Establ.)
[2025-03-17 15:29] LABS: Auto B Fluid Analyzer BKGD Ct COUNTS W/IN LIMITS (W/IN LIMITS)
[2025-03-17 15:30] LABS: Source- Body Fluid PARACENTESIS
[2025-03-17 19:37] LABS: Appearance/Body Fluid CLEAR; Color/Body Fluid YELLOW; Red Cell Count/Body Fluid 390 /mm3
[2025-03-17 19:38] LABS: Body Fluid QC Type(s) BF1Q
[2025-03-17 20:31] LABS: Neutrophil (Segs) 17 %; Other Cell Type/BF 2 %
--- NOTE | 2025-03-17 22:52 | NURSING ---
pt refused all medications. this rn at bedside, reviewed each medication with pt including why it is prescribed and the risks verses benefit of taking and refusing each medication. pt verbalized understanding and insisted that he does not need each medication and maintained refusal including the ceftriaxone and metoprolol. pt requested snacks and ice chips. pt is alert and oriented x4, ambulates independently, vitals stable on room air. call kaufman within reach. continue to monitor.
[2025-03-18 03:06] VITALS: BMI 21.0
[2025-03-18 03:26] VITALS: BP 96/69; PULSE 88; RESP 18; TEMP 36.4; O2SAT 99
--- NOTE | 2025-03-18 09:56 | PCM.DC ---
Discharge Instructions DC O2, CPAP, BIPAP needs Home O2 Discharge instructions: No Dressing / Incision Discharge Activity: Return to Normal Activity Weight Bearing Status: Weight bearing as tolerated Dressing / Incision Call your doctor if you observe: Fever of 101 or Higher, Coldness, Increased Pain, Numbness or Tingling, Change in Color, Inability to urinate, Inability to have a bowel movement, Shortness of breath, Dizziness, Fainting spells, Swelling in the ankles, Chest pain, Prolonged hiccupping, Increased palpitations (irregular heartbeat) and Calf discomfort Follow Up Care When: IN 2 WEEKS Test Results: Test results from this visit will be discussed in further detail at your follow-up appointment, if applicable. Discharge Plan Admission Admit Date/Time: 03/15/25 17:10 Primary Reason for Your Visit: Decompensated cardiac cirrhosis with ascites Attending Provider: Phil Newell Primary Care Provider: Rosaline Ash Consulting Providers: Margarita Tang Instructions Additional Instructions / Restrictions: Advised follow-up with the community paint crew supervisor for workup for cardiac cirrhosis and possible transplant evaluation listing. Follow-up with the wound paint crew supervisor Discharge Orders/Prescriptions Prescriptions: Continued torsemide 100 mg tablet 100 mg PO Q12.TCU Eliquis 5 mg tablet 5 mg PO BID metoprolol tartrate 25 mg Tablet 12.5 mg PO BID Qty: 30 0RF Referrals / Follow Up: Rosaline Ash, DO [Primary Care Provider] - Within 2 Weeks Disposition Disposition (needs filled in before D/C Order can be placed): Home, Self Care
[2025-03-18 10:30] VITALS: BP 93/73; PULSE 94; RESP 18; TEMP 36.4; O2SAT 100
[2025-03-18 10:31] VITALS: BP 93/73; PULSE 94; RESP 18; TEMP 36.4; O2SAT 100
[2025-03-18 10:33] VITALS: BP 93/73; PULSE 94
--- NOTE | 2025-03-18 11:34 | DS.PCM_ITS ---
Providers Date of Admission: 03/15/25 Date of Discharge: 03/18/25 Primary Care Physician: Rosaline Ash [facility], DO Reason For Visit: ASCITES, ABDOMINAL DISCOMFORT Diagnosis Discharge Diagnosis (1) Ascites: Status: Acute Code(s): R18.8 - Other ascites Plan 45-year-old gentleman was admitted with shortness of breath and abdominal distention feeling of bloating, started getting worse since last Friday or about 1 week. His shortness of breath and nonproductivecough is chronic His last dose of Eliquis was Friday morning. 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 - Patient has recurrent large-volume abdominal ascites which was confirmed on CT scan, has had therapeutic paracentesis previously 3 times with most recent at [facility] when he was admitted - Ultrasound-guided paracentesis ordered with lab tests -Continue home diuretics, his BNP is similar to previous and notes that breathing is at baseline. -Will monitor daily weights and I's and O's 03/17: Total bili 2.72, direct 1.64, alkaline phosphatase 118, mainly detect hyperbilirubinemia. Hypoalbuminemia. Plan for paracentesis today. 03/18: Fluid analysis reviewed. Total WBC count 72, polynuclear 12, mononuclears 60 therefore SBP ruled out. Glucose 133, total protein 2.6. Gram stain?shows no cells or organisms. IV ceftriaxone discontinued. Patient discharged on torsemide. Is not candidate for spironolactone because of CKD stage IIIb. K3.8. 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 Small less than 1 cm pericardial effusion. Heart failure core measures including intake and output, fluid restriction less than 1500 mL, daily weight monitoring, kidney and electrolytes monitoring. 03/17: On torsemide 100 mg twice daily. Metoprolol tartrate. Patient blood pressure is in the low 100s to upper 90s. Consider LUCRECIA/ARB if BP permits #Right base atelectasis as seen in CT scan: Patient has mild cough probably from diaphragm pushed up. No fever. No tachycardia. Patient pulse ox is 99 to 100% on room air. - Continue incentive spirometry 03/17: Patient empirically on IV ceftriaxone and azithromycin. Urinary antigens are negative. Respiratory panel negative. Discontinue IV azithromycin. Continue IV ceftriaxone until SBP ruled out although low suspicion of SBP. #Hx afib -Continue metoprolol -Hold Eliquis as pt will have paracentesis - Discussed with radiology. Because of advanced kidney failure, will need 3 days off Eliquis before paracentesis. # CKD stage III b - Creatinine still elevated/BMP still abnormal however is actually improved from previous -Avoid nephrotoxic agents -Continue home diuresis - 03/16 creatinine 2.12 BUN 34, estimated creatinine clearance 47 mL/min 03/17: BUN/creatinine 31/2.0. 03/18: Creatinine is 2.0. Estimated creatinine clearance about 47 to 49 mL/min. #DVT ppx: SCDs Discharge medication reconciliation done. Discharge follow-up instructions completed. Discharge process discussed with the patient and all questions were answered to patient's satisfaction. Follow with PCP in 1 to 2 weeks Total time spent, exact 35 minutes on discharge meds reconciliation, examination, coordination of care with nurses and ancillary staff, review of imaging and blood test and discussion with the patient on follow-up instructions. Microbiology Past 72 Hours 03/15/25 23:51 Urine, Clean Catch Legionella Antigen - Final 03/15/25 23:51 Urine, Clean Catch Streptococcus pneumoniae Antigen (M - Final 03/15/25 20:03 Mucosa - Nasopharyngeal Respiratory Panel (PCR) - Final Laboratory Results 03/17/25 04:46: WBC 6.1, RBC 3.87 L, Hgb 12.9 L, Hct 39.4 L, MCV 101.8 H, MCH 33.3 H, MCHC 32.7, RDW Std Deviation 62.7 H, RDW Coeff of Juan 16.9 H, Plt Count 278, MPV 9.9, Immature Gran % (Auto) 0.300, Neut % (Auto) 56.6, Lymph % (Auto) 31.8, [place]kin % (Auto) 10.3 H, Eos % (Auto) 0.3, Baso % (Auto) 0.7, Absolute Neuts (auto) 3.5, Absolute Lymphs (auto) 1.94, Nucleated RBC % 0, Sodium 140, Potassium 3.8, Chloride 103, Carbon Dioxide 20.5 L, Anion Gap 17 H, BUN 31 H, C reatinine 2.00 H, Estim Creat Clear Calc 49.86 L, Est GFR (MDRD) Non-Af 41 L, BUN/Creatinine Ratio 15.7, Glucose 92, Calcium 8.8, Total Bilirubin 2.72 H, D irect Bilirubin 1.64 H, AST 31, ALT 23, Alkaline Phosphatase 418 H, Total Protein 6.4, Albumin 3.3 L, Globulin 3.1 Clinical Impression(s) from Imaging Studies Abdomen/Pelvis CT 03/15/25 11:36 IMPRESSION: Diffuse ascites. Hepatomegaly and diffuse fatty infiltration of the liver. Rounded atelectasis and/or infiltrate at the right lung base. Chest X-Ray 03/15/25 14:33 IMPRESSION: Cardiac enlargement Reading Location: [id number] Echo December 2024 Interpretation Summary Severely dilated left ventricle. The left ventricular ejection fraction is 15 %. Stage 3 diastolic dysfunction. The inferior vena cava is dilated Mild (1+) aortic valve insufficiency. Small (<1.0 cm) pericardial effusion. Medications at Discharge Home Medications apixaban 5 mg tablet (Eliquis) 5 mg PO BID blood thinner 01/04/25 metoprolol tartrate 25 mg tablet 12.5 mg (1/2 x 25 mg) PO BID blood pressure #30 tabs 02/16/25 torsemide 100 mg tablet 100 mg PO Q12.TCU diuretic 03/15/25 Physical Exam Narrative Seen and examined. Patient had paracentesis yesterday. Feels better. No shortness of breath. No chest pain. Low EF, chronic HFrEF Physical exam General: Alert, Oriented x3, Cooperative. BMI 22.7 kg/m? HEENT: Atraumatic, PERRLA, EOMI, Normocephalic. Oral: No Gingival or Mucosal Lesions/ Ulcerations Neck: Supple, No JVD, Negative Carotid Bruits Chest wall/Lungs: Air entry diminished in bilateral lung bases. 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 No crepitation/rhonchi Cardiovascular: Regular rate and rhythm, systolic murmur Abdomen: Bowel Sounds Present, Soft, Non Tender, abdominal distention/ascites : No dysuria. No renal angle tenderness. No suprapubic tenderness. Extremities: Mild pedal edema, Capillary Refill Less than 3 Seconds Skin: No rashes, No breakdown Musculoskeletal: No Tenderness to Palpation of Joints or Extremities Neurological: Cranial nerves II-XII grossly intact, DTR 2+/4. No acute focal neurological deficit. Psych/Mental Status: Normal Affect, Appropriate. Weight / BMI Weight Weight: 159 lb 9.835 oz Body Mass Index (BMI) 21.0 ABG / Lab / Microbiology Data 03/17/25 04:46 03/17/25 04:46 Laboratory: Laboratory Results - last 24 hr 03/17/25 13:30: Fluid Source PARACENTESIS, Fluid Color YELLOW, Fluid Appearance CLEAR, Fluid RBC 390, Fluid Neutrophils 17, Fluid Lymphocytes 19, Fluid Monocytes 19, Fluid Macrophages 34, Fld Mesothelial Cells 9, Fluid Other Cells 2, Fl Pathologist Comment Reviewed, Fluid Comment 2 SEE COMMENT Microbiology: Microbiology 03/17/25 13:30 Fluid - Ascites Gram Stain - Final 03/15/25 23:51 Urine, Clean Catch Legionella Antigen - Final 03/15/25 23:51 Urine, Clean Catch Streptococcus pneumoniae Antigen (M - Final 03/15/25 20:03 Mucosa - Nasopharyngeal Respiratory Panel (PCR) - Final Radiography Diagnostic Testing: Radiology Impression Paracentesis Ultrasound 03/17/25 00:00 IMPRESSION: Successful paracentesis. The patient tolerated the procedure well. Reading Location: [place] [id number] D/C Instructions Weight Bearing Status: Weight bearing as tolerated Call your doctor if you observe: Fever of 101 or Higher, Coldness, Increased Pain, Numbness or Tingling, Change in Color, Inability to urinate, Inability to have a bowel movement, Shortness of breath, Dizziness, Fainting spells, Swelling in the ankles, Chest pain, Prolonged hiccupping, Increased palpitations (irregular heartbeat) and Calf discomfort DC O2, CPAP, BIPAP Needs Home O2 Discharge instructions: No When: IN 2 WEEKS Meaningful Use Info Meaningful Use Meaningful Use Diagnoses (Choose all that apply): None applicable Discharge Plan Admission Admit Date/Time: 03/15/25 17:10 Primary Reason for Your Visit: Decompensated cardiac cirrhosis with ascites Attending Provider: Phil Newell Primary Care Provider: Rosaline Ash Consulting Providers: Margarita Tang Instructions Additional Instructions / Restrictions: Advised follow-up with the community dust collector ore crushing for workup for cardiac cirrhosis and possible transplant evaluation listing. Follow-up with the wound dust collector ore crushing Discharge Orders/Prescriptions Prescriptions: Continued torsemide 100 mg tablet 100 mg PO Q12.TCU Eliquis 5 mg tablet 5 mg PO BID metoprolol tartrate 25 mg Tablet 12.5 mg PO BID Qty: 30 0RF Referrals / Follow Up: Rosaline Ash, DO [Primary Care Provider, Family Practice] - Within 2 Weeks Disposition Disposition (needs filled in before D/C Order can be placed): Home, Self Care Charges/Coding Visit Charges Inpatient E&M: 43536 Disch Hosp >30min
--- NOTE | 2025-03-18 11:45 | CASEMGMT ---
Dr Newell completed DC instructions. RN CM to the pt's room who states that he is ready to go home now. Pt states that he feels safe going home today. Pt states that he can afford his Eliquis rx and that he has a used the savings card in the past. Pt sates that his ride will be here at noon and that he wants the RN to come take his IV out. Notified pt's RN. No further needs identified as pt declines any needs.
[2025-03-18 12:42] LABS: Pathologist Comment/Body Fluid Reviewed
[2025-03-19 16:09] LABS: Albumin, Body Fluid 1.5 g/dL (Not Estab.)
--- NOTE | 2025-03-23 12:21 | CASEMGMT ---
This RN CM was notified that the pt's CM through [employer] (Deja @ [phone]) is requesting to speak with this RN CM . TC to the CM at this time, no answer. VM left.
== END 2025-03-18 12:28 | disposition home or self-care (01) | DRG 442 ==
LOC: ED 16:07 → PCU 17:13
PROVIDERS: Admitting Provider Internal Medicine; Emergency Provider Emergency Medicine; PCP Family Medicine; Visit Provider Internal Medicine
DX: K76.1 Chronic passive congestion of liver (principal); R18.8 Other ascites; I13.0 Hypertensive heart and chronic kidney disease with heart failure and stage 1 through stage 4 chronic kidney disease, or unspecified chronic kidney disease; I48.20 Chronic atrial fibrillation, unspecified; J98.11 Atelectasis; I50.42 Chronic combined systolic (congestive) and diastolic (congestive) heart failure; I50.82 Biventricular heart failure; R16.0 Hepatomegaly, not elsewhere classified; N18.32 Chronic kidney disease, stage 3b; R05.3 Chronic cough; Z79.01 Long term (current) use of anticoagulants; Z79.899 Other long term (current) drug therapy; Z86.711 Personal history of pulmonary embolism; Z86.718 Personal history of other venous thrombosis and embolism
CPT/HCPCS: 36415; 49083; 71046; 74177; 80048; 80053; 80076; 82042; 82248; 82945; 83690; 83735; 83880; 84145; 84157; 84484; 85025; 87070; 87075; 87205; 87449; 87633; 88108; 88305; 88313; 89050; 93005; 94668; 97802; 99284; Q9967; A4216

== ENCOUNTER 2025-03-24 13:01 | Emergency (ER) | payer OTHER, SELFPAY ==
[2025-03-24] VITALS (8 sets, daily range): BP systolic 100–117; BP diastolic 79–89; PULSE 54–111; RESP 14–24; TEMP 36.9–37.1; O2SAT 98–100
--- NOTE | 2025-03-24 14:02 | RAD.NOTE ---
ED RN & Dr. Tang made aware according to [facility] Radiology Antithrombotic Guidelines, a paracentesis procedure would be deemed a high bleeding risk procedure due to pt's abnormal renal function, abnormal liver function, and being on an antithrombotic medication. According to the guidelines, the patient would need to hold 4-6 doses of Eliquis depending on his creatinine clearance. CRCl >50 4 doses; < or =50 6 doses. Pt is able to have procedure done as an outpatient as long as he has an authorization to hold his Eliquis from his prescribing provider.
[2025-03-24 14:55] LABS: Hematocrit 44.5 % (40-54); Hemoglobin 14.1 g/dL (13.0-16.5); Immature Granulocytes Count 0.030 X10^3/uL (0.0-0.0); Mean Corp Hgb Conc 31.7 g/dL (32-36); Mean Corpuscular Volume 107.0 fL (80-94); Mean Platelet Vol. 9.8 fl (6.2-12.0); NRBC Flagged by Analyzer 0.5 % (0-5); POSITIVE MORPHOLOGY YES; Platelet Count 296 K/mm3 (150-450); RBC Distribution Width CV 16.7 % (11.6-14.6); RBC Distribution Width SD 65.5 fl (35.1-43.9); Red Blood Count 4.16 M/mm3 (4.6-6.2); White Blood Count 6.6 K/mm3 (4.4-11.0)
[2025-03-24 14:56] LABS: Differential Indicated SCAN CRITERIA MET
--- NOTE | 2025-03-24 15:12 | EX.ED.DYSGE1 ---
HPI History of Present Illness Chief Complaint: Shortness of Breath Detail of Chief Complaint: Patient presents because of ascites requesting paracentesis. Informant: patient and spouse/S.O. Onset/Context/Timing Onset: - (Complains of dyspnea because he cannot take a complete breath.) Context: Onset with activity, Gradual Onset and Sudden Onset Timing: Intermittent Quality: Patient with cardiomyopathy and an EF of 5 to 10%. He is on anticoagulant. Location: Ascites Current Severity: Moderate Maximum Severity: Moderate Worsened by: Dyspnea with activity Relieved by: Rest Associated Symptoms Associated Symptoms: ascites Narrative Narrative: Patient is a 45-year-old male. He has not taken his Eliquis, metoprolol or loop diuretic since Friday because of low blood pressure. He was instructed not to take any of his meds if his blood pressure is low. Patient was recently admitted to the hospital. He was discharged on March 18, 2025. Discharge summary was authored by Dr. Newell. Patient present was diagnosed with his ascites. The ascites is due to decompensated cardiac cirrhosis. His liver enzymes at the time revealed an elevated bilirubin, elevated alkaline phosphatase and normal transaminases. Patient had ultrasound-guided paracentesis performed. He also has history of atrial fibrillation, chronic kidney disease stage IIIb. He has a EF of approximately 10 to 15%. I was informed by the hospitalist that last EF was 5%. Patient denies chest pressure, tightness or heaviness. Patient has shortness of breath with activity. Patient states he cannot take a complete breath. He was trying to contact the radiology department to have a paracentesis done. He was unaware that he needs a prescription to have this performed. He denies fever, chills night sweats. He denies upper respiratory tract infectious symptoms. He denies leg pain, swelling discoloration. Prior similar symptoms: Yes Recent Illness/Hospitalization: Yes [facility] Medical History Cirrhosis Hypertension Medical non-compliance Chronic anticoagulation Chronic atrial fibrillation Hyperbilirubinemia Respiratory insufficiency Hypoxia Abdominal ascites Left ventricular ejection fraction less than 20% Heart block Abdominal ascites Kidney disease Non-smoker Irregular heart beat DVT (deep venous thrombosis) CKD stage 3b, GFR 30-44 ml/min Elevated bilirubin HFrEF (heart failure with reduced ejection fraction) CKD (chronic kidney disease) Cardiomyopathy Left bundle branch block Noncompliance Pulmonary embolism CHF (congestive heart failure) Home Medications ?Medication ?Instructions ?Recorded ?Last Taken ?Type apixaban 5 mg tablet (Eliquis) 5 mg PO BID blood thinner 01/04/25 03/14/25 History metoprolol tartrate 25 mg tablet 12.5 mg (1/2 x 25 mg) PO BID blood 02/16/25 03/14/25 Rx pressure #30 tabs torsemide 100 mg tablet 100 mg PO Q12.TCU diuretic 03/15/25 03/14/25 History Allergy/AdvReac Type Severity Reaction Status Date / Time No Known Allergies Allergy Verified 03/24/25 13:02 Family History Father Heart disease Brother Heart disease Social History Smoking Status: Never smoker alcohol intake: never substance use type: does not use ROS ROS ED Constitutional Constitutional ED: Denies chills, fever(s), subjective or sweats Eyes Eyes: Denies blurry vision or change in vision ENT ENT ED: Denies ear pain, rhinorrhea or sore throat Cardiovascular Cardiovascular: Denies chest pain, orthopnea, palpitations, paroxysmal nocturnal dyspnea or racing heartbeat Respiratory/Chest Respiratory/Chest: Reports dyspnea and dyspnea on exertion; Denies cough, orthopnea, paroxysmal nocturnal dyspnea or sputum Gastrointestinal Gastrointestinal: Reports abdominal pain; Denies constipation, diarrhea, melena, nausea or vomiting Musculoskeletal Musculoskeletal: Denies arthralgias or myalgias Integumentary Denies rash Neurologic Neurologic: Denies weakness Hematologic/Lymphatic Hematologic/Lymphatic: Reports systems reviewed and no addt'l complaints, except as documented; Denies easy bruising EXAM Physical Exam Const Vital Signs: 03/24/25 13:02 03/24/25 13:02 03/24/25 14:02 Temperature 98.4 F Temperature Source Temporal Pulse Rate 54 L 107 H 108 H Respiratory Rate 14 24 H 21 H Respiratory Effort Respiratory Depth Respiratory Pattern Blood Pressure 100/79 117/89 H 101/88 H Blood Pressure Mean 86 98 92 Pulse Ox 98 100 99 Oxygen Delivery Method Room Air Room Air Room Air 03/24/25 14:32 03/24/25 15:00 Temperature Temperature Source Pulse Rate 107 H Respiratory Rate 23 H Respiratory Effort Short of Breath Respiratory Depth Deep Respiratory Pattern Tachypnea Blood Pressure 106/88 H Blood Pressure Mean 94 Pulse Ox 99 Oxygen Delivery Method Room Air Room Air Positive well nourished Constitutional Narrative: Patient's vital signs are marked for tachycardia and tachypnea. His blood pressure is borderline. General Appearance ED: Negative for pallor HEENT Reports moist mucous membranes HEENT Narrative: Head is atraumatic and normocephalic. Ears normal. Nares patent Eyes PERRL and EOMs intact bilaterally General Eye ED: Yes scleral icterus; Negative for pale conjunctiva Neck No no lymphadenopathy, No supple and No no JVD Chest Wall inspection of chest normal and palpation of chest normal Resp normal respiratory effort and clear to auscultation bilaterally Cardio regular rate, regular rhythm, S1 normal heart sound, S2 normal heart sound and no murmurs GI GI Narrative: Abdomen is soft. There is fluid wave and shifting dullness to percussion. Patient has a umbilical hernia. There is no peritoneal findings or guarding. Back/Spine no CVA tenderness Extremity normal to inspection Neuro oriented x3 and CN's II-XII intact bilaterally Sensorium / Orientation: alert Psych mental status grossly normal Skin no rashes or lesions noted, no wounds and skin turgor normal General Skin Exam: Negative for pallor MDM MDM MDM Narrative Medical decision making narrative: Radiology department was contacted to see if they would perform an ultrasound guided paracentesis since he has not taken his Eliquis since Friday. She she requested blood work. This was ordered. Lab Data Attestation: I reviewed the patient's lab results. Lab results narrative: CBC is remarkable increased indices otherwise unremarkable. PT is elevated. INR is normal. PTT is normal. Electrolyte panel reveals a BUN and creatinine of 32 and 2.08. Patient has elevated anion gap. This was noted on prior labs. This is probably due to his kidney failure. Labs: Laboratory Results - last 24 hr 03/24/25 03/24/25 03/24/25 14:18 15:20 15:20 WBC 6.6 RBC 4.16 L Hgb 14.1 Hct 44.5 MCV 107.0 H MCH 33.9 H MCHC 31.7 L RDW Std Deviation 65.5 H RDW Coeff of Juan 16.7 H Plt Count 296 MPV 9.8 Immature Gran % (Auto) 0.500 Neut % (Auto) 62.1 Lymph % (Auto) 28.2 [place] % (Auto) 8.3 Eos % (Auto) 0.3 Baso % (Auto) 0.6 Absolute Neuts (auto) 4.1 Absolute Lymphs (auto) 1.86 Nucleated RBC % 0.5 Differential Comment SCANNED Platelet Estimate ADEQUATE Anisocytosis 1+ PT Cancelled 18.0 H INR Cancelled APTT Sodium 141 Potassium 4.8 Chloride 104 Carbon Dioxide 17.3 L Anion Gap 19 H BUN 32 H Creatinine 2.08 H Est GFR (MDRD) Non-Af 39 L BUN/Creatinine Ratio 15.5 Glucose 79 Calcium 9.0 03/24/25 03/24/25 15:20 15:20 WBC RBC Hgb Hct MCV MCH MCHC RDW Std Deviation RDW Coeff of Juan Plt Count MPV Immature Gran % (Auto) Neut % (Auto) Lymph % (Auto) [place] % (Auto) Eos % (Auto) Baso % (Auto) Absolute Neuts (auto) Absolute Lymphs (auto) Nucleated RBC % Differential Comment Platelet Estimate Anisocytosis PT INR 1.5 APTT Cancelled 24.2 Sodium Potassium Chloride Carbon Dioxide Anion Gap BUN Creatinine Est GFR (MDRD) Non-Af BUN/Creatinine Ratio Glucose Calcium Treatment and Re-Evaluation :: Patient was reassessed at 1635. He states he feels much better after the paracentesis. Plan is to discharge to home. Discharge Plan Triage Chief Complaint: Shortness of Breath ED Provider: Fortino Le Dx/Rx/DC Orders Clinical Impression: Abdominal ascites, Cardiomyopathy, Dyspnea on exertion, Chronic renal failure (CRF), stage 3b, High anion gap metabolic acidosis Instructions: ED Ascites Prescriptions: No Action torsemide 100 mg tablet 100 mg PO Q12.TCU Eliquis 5 mg tablet 5 mg PO BID metoprolol tartrate 25 mg Tablet 12.5 mg PO BID Qty: 30 0RF Primary Care Provider: Rosaline Ash Referrals: Rosaline Ash, DO [Primary Care Provider, Family Practice] - 5-7 Days Print Language: Pashto Disposition Disposition: Home, Self Care
[2025-03-24 15:17] LABS: Anion Gap 19 (5-15); BUN 32 mg/dL (4-19); BUN/Creat Ratio 15.5 RATIO (10-20); Calcium,Total 9.0 mg/dL (7.6-11.0); Carbon Dioxide 17.3 mmol/L (21.0-32.0); Chloride 104 mmol/L (98-108); Glucose 79 mg/dL (70-99); Potassium 4.8 mmol/L (3.3-5.1)
[2025-03-24 15:56] LABS: Partial Thromboplast Time 24.2 Seconds (24.1-36.2); Prothrombin Time (Protime)PT. 18.0 SECONDS (11.7-14.9)
--- NOTE | 2025-03-24 15:57 | PCM.OPRPT ---
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 Le INDICATION: Male, 45 years old. Ascites. PROVIDER: NEERAJ Moreno TECHNIQUE: The risks, benefits, and alternatives to the procedure were explained to the patient. The specific risks of bleeding, infection, and damage to bowel were detailed and accepted. Witnessed informed consent was obtained. Coagulation studies were obtained and reviewed. Patient has not taken his Eliquis since 03/21/2025. The abdomen was ultrasonographically surveyed. An appropriate pocket of fluid was identified in the left lower quadrant. The skin was prepped with chlorhexidine and sterile field established. 2% lidocaine was used for local anesthetic. Using ultrasound guidance, the peritoneal cavity was accessed with a 5-Tamazight paracentesis needle/catheter system. The trocar was removed. A total of 3500 ml of clear yellow colored fluid was removed from the peritoneal cavity. The catheter was removed and a sterile dressing was applied. The procedure was well tolerated without any immediate complications. IMPRESSION: Successful ultrasound guided paracentesis with left lower quadrant access site. Surgical Findings: None Complications Complications: No
[2025-03-24 16:14] LABS: Differential Comment SCANNED
[2025-03-24 16:15] LABS: Anisocytosis 1+
[2025-03-24] MEDS: Lidocaine 2% (20 ml mdv) 20 ML Vial INFILT (16:39)
== END 2025-03-24 16:53 | disposition home or self-care (01) ==
PROVIDERS: Emergency Provider Emergency Medicine; PCP Family Medicine; Visit Provider Emergency Medicine
DX: R18.8 Other ascites (principal); I48.20 Chronic atrial fibrillation, unspecified; I42.9 Cardiomyopathy, unspecified; N18.32 Chronic kidney disease, stage 3b; I12.9 Hypertensive chronic kidney disease with stage 1 through stage 4 chronic kidney disease, or unspecified chronic kidney disease; E87.20 Acidosis, unspecified; Z79.01 Long term (current) use of anticoagulants; Z79.899 Other long term (current) drug therapy; Z86.711 Personal history of pulmonary embolism; Z86.718 Personal history of other venous thrombosis and embolism
CPT/HCPCS: 49083; 80048; 85025; 85610; 85730; 99284; A4216

== ENCOUNTER 2025-03-31 12:09 | Emergency (ER) | payer OTHER, SELFPAY ==
[2025-03-31 12:10] VITALS: BP 100/86; PULSE 109; RESP 20; TEMP 36.6; O2SAT 99
--- NOTE | 2025-03-31 12:14 | EDS_ITS ---
HPI History of Present Illness Chief Complaint: General Illness [facility] Medical History Cirrhosis Hypertension Medical non-compliance Chronic anticoagulation Chronic atrial fibrillation Hyperbilirubinemia Respiratory insufficiency Hypoxia Abdominal ascites Left ventricular ejection fraction less than 20% Heart block Abdominal ascites Kidney disease Non-smoker Irregular heart beat DVT (deep venous thrombosis) CKD stage 3b, GFR 30-44 ml/min Elevated bilirubin HFrEF (heart failure with reduced ejection fraction) CKD (chronic kidney disease) Cardiomyopathy Left bundle branch block Noncompliance Pulmonary embolism CHF (congestive heart failure) Home Medications ?Medication ?Instructions ?Recorded ?Last Taken ?Type apixaban 5 mg tablet (Eliquis) 5 mg PO BID blood thinn er 01/04/25 03/14/25 History metoprolol tartrate 25 mg tablet 12.5 mg (1/2 x 25 mg) PO BID blood 02/16/25 03/14/25 Rx pressure #30 tabs torsemide 100 mg tablet 100 mg PO Q12.TCU diuretic 0 03/15/25 03/14/25 History Allergy/AdvReac Type Severity Reaction Status Date / Time No Known Allergies Allergy Verified 03/31/25 12:13 Family History Father Heart disease Brother Heart disease Social History Smoking Status: Never smoker alcohol intake: never substance use type: does not use EXAM Physical Exam Const Vital Signs: 03/31/25 12:10 03/31/25 13:19 03/31/25 13:19 Temperature 98 F Temperature Source Oral Pulse Rate 109 H 105 H Respiratory Rate 20 H 24 H Respiratory Effort Short of Breath Respiratory Pattern Tachypnea Blood Pressure 100/86 H 124/89 H Blood Pressure Mean 90 100 Pulse Ox 99 99 Oxygen Delivery Method Room Air Room Air 03/31/25 14:00 03/31/25 15:00 03/31/25 16:00 Temperature Temperature Source Pulse Rate 101 H 78 105 H Respiratory Rate 20 H 15 20 H Respiratory Effort Respiratory Pattern Blood Pressure 99/82 H 103/80 105/73 Blood Pressure Mean 87 87 83 Pulse Ox 95 97 97 Oxygen Delivery Method Room Air Room Air Room Air 03/31/25 16:12 Temperature 98.4 F Temperature Source Pulse Rate 100 Respiratory Rate 16 Respiratory Effort Respiratory Pattern Blood Pressure 102/75 Blood Pressure Mean 84 Pulse Ox 99 Oxygen Delivery Method MDM [facility] Narrative Medical decision making narrative: HISTORY OF PRESENT ILLNESS: Chief complaint: Shortness of breath, weakness, leg swelling 45-year-old male history of cirrhosis, CHF, CKD, A-fib on Eliquis, DVT/PE on Eliquis, presents with multiple complaints including shortness of breath, leg swelling and weakness. He states I think I need another paracentesis. Patient reports chronic shortness of breath. States shortness breath is not worse than usual. Denies cough fever chills. Notes noncompliance with home medication including Eliquis, torsemide metoprolol. Has not taken his medicine for several weeks secondary to being told not to take if his blood pressure was low. Notes blood pressures in the upper 90s and low 100 at home specifically in the morning. He does complain of abdominal pain but denies fever or vomiting. Denies changes to bowel or bladder habits. Denies any urinary complaints REVIEW OF SYSTEMS: Pertinent positives: Abdominal pain, chronic shortness of breath, leg Pertinent negatives: Vomiting, fever, chest pain PHYSICAL EXAM: Nursing triage notes reviewed, Vital signs reviewed Constitutional: please see [facility] HENT: MMM Eyes: Pupils equal round and reactive to light, Extraocular muscles intact Neck: No stridor, no JVD, full neck ROM Lungs: Clear to auscultation, No wheezing or rales. No increased work of breathing, no conversational dyspnea, no accessory muscle use, no nasal flaring. No respiratory distress noted Heart: Regular rate and rhythm, No murmurs, No rubs and No gallops, 2+ distal pulses (radial, femoral, posterior tibial) in all extremities Abdomen: Soft, diffuse TTP, no tense ascites but positive fluid wave but no rigidity, rebound or guarding, no obvious peritoneal signs, no palpable pulsatile abdominal masses, no auscultated abdominal bruit. Bedside ultrasound shows significant amount of ascitic fluid : No CVAT Extremities: No edema Neuro: No new focal neurological deficits, cranial nerves II through XII intact, 5/5 strength in all present extremities. Intact sensation to light touch in all present extremities, 2+ reflexes bilateral patella tendons. Skin: No rash or lesions noted MEDICAL DECISION MAKING: Chief Complaint: please see HPI External records reviewed: Reviewed recent ED visit from March 22, 2025. Reviewed prior hospitalization. Recently discharged from the hospital on 03/18 2025. Patient was being treated for liver cirrhosis, CHF and CKD Ejection fraction noted to be 15 % reviewed prior vital signs. Patient's baseline blood pressure is in the low 100s to upper 90s likely secondary to poor intravascular carotid pressure secondary to cirrhosis. Factors affecting care: As per HPI Social determinants of health: none History obtained from others: none Consults: none [facility] Narrative: Patient was initially hypotensive blood pressure 100/86, tachycardic with a heart rate of 109, tachypneic respirate of 20. Exam with some abdominal tenderness. No obvious tense ascites with obvious fluid wave. I considered the following differential diagnosis: Decompensated cirrhosis, pneumonia, heart failure, SBP I obtained a broad lab and imaging workup to further determine if the patient was suffering from a life-threatening etiology. Procedure: Paracentesis Indication: Large ascites fluid collection Consent: Written (placed on chart) Risks explained: Bleeding, infection, bowel injury, and hypotension. Anesthesia: 1% lidocaine with epinephrine. Using ultrasound guidance, a paracentesis needle the left lower quadrant was aspirated. The patient tolerated the procedure well. There were no complications. Fluid: The appearance of the fluid was yellow. The volume that was aspirated was approximately 600 cc of fluid. The procedure was performed by Sandip Palmer DO ALL IMAGES (IF OBTAINED) HAVE BEEN PERSONALLY REVIEWED AND INTERPRETED BY MYSELF. EKG with sinus tachycardia rate 103, left axis deviation, prolonged QTc at 547, similar to prior EKG. No significant changes from EKG noted on March 15, 2020 CBC with no leukocytosis, mild anemia, no thrombocytopenia BMP without significant [place] normalities, baseline metabolic acidosis that improved slightly from prior, baseline elevated anion gap similar to prior, [place] on CKD, hyperbilirubinemia, normal transaminases, elevated alk phos. Liver function essentially at baseline to slightly worse however certainly not consistent with decompensated cirrhosis from his baseline Lipase is wnl indicating no pancreatic inflammation. Paracentesis fluid analysis shows no evidence of definitive SBP cell count is less than 250 he was afebrile had no white count. His blood pressure remained stable here in the emergency department. He noted symptomatic improvement after removing approximately 600 cc of ascitic fluid. Not require admission at this time as did not feel that he would benefit from admission. He will need outpatient GI follow-up for prompt evaluation and to schedule paracentesis on a ongoing basis. Discussed following with our GI department. Discussed stricked return precautions Upon reevaluation patient blood pressure remained stable 102/75. Heart rate improved to 100. Repeat abdominal exam was unchanged. Less distention. Per patient his pain improved. The patient was alert and orient x 3 and had capacity to make his own medical symptoms. Admission versus discharge discussed. Patient to risk and benefits admission versus discharge and chose to be discharged at this time. The patient and/or family, caregivers express understanding. The patient and/or family, caregivers agrees with the plan. Shared decision making: I will have a discussion with the patient and or visitors regarding risk/benefits of further testing or admission. They will be made aware of of the risk/benefits inherent in this decision they will be given the opportunity to voice understanding. Total critical care time today provided was at least 0 minutes. This excludes separately billable procedures. Critical care time (if documented) is secondary to the patient having high probability of clinically significant/life threatening deterioration in the patient's condition which required my urgent intervention. Impression: 1. Acute abdominal pain 2. History of liver cirrhosis 3. Ascites Dispo: Discharge This note was generated with [employer] dictation software. It may contain incorrect words, spelling, and punctuation that were not noted in review of the chart prior to signing. Lab Data Labs: Laboratory Results - last 24 hr 03/31/25 03/31/25 13:40 14:49 WBC 6.3 RBC 4.68 Hgb 15.6 Hct 48.9 MCV 104.5 H MCH 33.3 H MCHC 31.9 L RDW Std Deviation 62.1 H RDW Coeff of Juan 15.9 H Plt Count 354 MPV 9.4 Immature Gran % (Auto) 0.200 Neut % (Auto) 51.9 Lymph % (Auto) 38.2 [place] % (Auto) 8.9 Eos % (Auto) 0.2 Baso % (Auto) 0.6 Absolute Neuts (auto) 3.3 Absolute Lymphs (auto) 2.40 Nucleated RBC % 0 Sodium 138 Potassium 4.4 Chloride 101 Carbon Dioxide 18.2 L Anion Gap 19 H BUN 38 H Creatinine 2.57 H Est GFR (MDRD) Non-Af 30 L BUN/Creatinine Ratio 14.9 Glucose 112 H Calcium 9.2 Total Bilirubin 3.64 H Direct Bilirubin 2.00 H AST 32 ALT 17 Alkaline Phosphatase 405 H Total Protein 6.7 Albumin 3.7 Globulin 3.1 Lipase 14 Fluid WBC 0.051 Fluid Tot Cell Count 0.061 Fld Polynuclear WBCs # 0.009 Fld Polynuclear WBCs % 17.6 Fluid Mononuclear WBCs 0.042 Fld Mononuclear WBCs % 82.4 Radiography Diagnostic Testing: Clinical Impression(s) from Imaging Studies Chest X-Ray 03/31/25 13:45 IMPRESSION: No acute pulmonary process Stable cardiomegaly No interval change Reading Location: [facility] Discharge Plan Triage Chief Complaint: General Illness ED Provider: Sandip Palmer Dx/Rx/DC Orders Instructions: Paracentesis, Cirrhosis of Liver Dc Prescriptions: No Action torsemide 100 mg tablet 100 mg PO Q12.TCU Eliquis 5 mg tablet 5 mg PO BID metoprolol tartrate 25 mg Tablet 12.5 mg PO BID Qty: 30 0RF Primary Care Provider: Rosaline Ash [facility] Referrals: Adarsh Arnold DO [Med Staff - Active Staff, Gastroenterology] Activity Restrictions/Additional Instructions: Thank you for trusting us with your care today! Your labs images were consistent with your prior studies and are consistent with cirrhosis, heart failure and chronic kidney disease. These are not significantly different Your fluid analysis did not show signs of spontaneous bacterial peritonitis in fact your fluid analysis showed improvement from prior studies Please take Tylenol (2 pills, 650 mg), ibuprofen (2 pills, 400 mg) every 6 hours as needed for pain and fever control. Please return to the emergency department if your symptoms change or worsen. Please follow with gastroenterology (Dr. Arnold) for further outpatient evaluation and management. Print Language: Estonian Disposition Disposition: Home, Self Care
--- NOTE | 2025-03-31 12:47 | EKG12_ITS ---
Test Reason : Blood Pressure : */* mmHG Vent. Rate : 103 BPM Atrial Rate : 103 BPM P-R Int : 154 ms QRS Dur : 152 ms QT Int : 418 ms P-R-T Axes : 60 -87 41 degrees QTcB Int : 547 ms Sinus tachycardia Possible Left atrial enlargement Left axis deviation Non-specific intra-ventricular conduction block Abnormal ECG Confirmed by ALEX BOSTON, BERNARD ([id number]), deputy editor in chief RADHA DUONG ([id number]) on 04/04/2025 6:02:39 AM Referred By: Confirmed By: BERNARD JOHNSON MD
[2025-03-31 13:19] VITALS: BP 124/89; PULSE 105; RESP 24; O2SAT 99
--- NOTE | 2025-03-31 13:45 | RAD_ITS ---
PROCEDURE: CHEST 1 VIEW (PORTABLE) 03/31/2025 REASON FOR EXAM: SOB TECHNIQUE: Frontal view of the chest. COMPARISON: 03/15/2025 FINDINGS: Hardware: EKG leads overlie the chest Heart: Stable cardiomegaly Lungs: The lungs are clear. Bones: Degenerative changes are identified within the thoracic spine. RAD/Chest 1 View (Portable) IMPRESSION: No acute pulmonary process Stable cardiomegaly No interval change Reading Location: [id number]
[2025-03-31 13:52] LABS: Hematocrit 48.9 % (40-54); Hemoglobin 15.6 g/dL (13.0-16.5); Immature Granulocytes Count 0.010 X10^3/uL (0.0-0.0); Mean Corp Hgb Conc 31.9 g/dL (32-36); Mean Corpuscular Volume 104.5 fL (80-94); Mean Platelet Vol. 9.4 fl (6.2-12.0); NRBC Flagged by Analyzer 0 % (0-5); Platelet Count 354 K/mm3 (150-450); RBC Distribution Width CV 15.9 % (11.6-14.6); RBC Distribution Width SD 62.1 fl (35.1-43.9); Red Blood Count 4.68 M/mm3 (4.6-6.2); White Blood Count 6.3 K/mm3 (4.4-11.0)
[2025-03-31 14:00] VITALS: BP 99/82; PULSE 101; RESP 20; O2SAT 95
[2025-03-31 14:12] LABS: AST(SGOT) 32 U/L (<=37); Alanine Aminotransfer ALT/SGPT 17 U/L (<=46); Albumin, Serum 3.7 g/dL (3.5-5.0); Alkaline Phosphatase 405 U/L (40-129); Anion Gap 19 (5-15); BUN 38 mg/dL (4-19); BUN/Creat Ratio 14.9 RATIO (10-20); Bilirubin, Direct 2.00 mg/dL (0.00-0.30); Calcium,Total 9.2 mg/dL (7.6-11.0); Carbon Dioxide 18.2 mmol/L (21.0-32.0); Chloride 101 mmol/L (98-108); Globulin 3.1 g/dL (2.2-4.2); Glucose 112 mg/dL (70-99); Lipase 14 U/L (13-75); Potassium 4.4 mmol/L (3.3-5.1)
[2025-03-31] MEDS: Lidocaine 1% /Epi 1:100 (20ml) 20 ML Vial 5 ML INFILT (14:45)
[2025-03-31 15:00] VITALS: BP 103/80; PULSE 78; RESP 15; O2SAT 97
[2025-03-31 15:36] LABS: Body Fluid Mononuclear WBC # 0.042 10^3/uL; Body Fluid Mononuclear WBC % 82.4 %; Body Fluid Polynuclear WBC # 0.009 10^3/uL; Body Fluid Polynuclear WBC % 17.6 %; White Blood Count/Body Fluid 0.051 10^3/uL
[2025-03-31 16:00] VITALS: BP 105/73; PULSE 105; RESP 20; O2SAT 97
[2025-03-31 16:12] VITALS: BP 102/75; PULSE 100; RESP 16; TEMP 36.9; O2SAT 99
[2025-03-31 17:01] LABS: Auto B Fluid Analyzer BKGD Ct COUNTS W/IN LIMITS (W/IN LIMITS)
[2025-03-31 17:02] LABS: Appearance/Body Fluid CLEAR; Color/Body Fluid YELLOW; Source- Body Fluid PARACENTESIS
[2025-03-31 17:24] LABS: Neutrophil (Segs) 19 %
[2025-03-31 17:27] LABS: Body Fluid QC Type(s) BF2Q; Red Cell Count/Body Fluid 275 /mm3
--- NOTE | 2025-03-31 18:00 | ED.RN ---
DR. HOLLIS INFORMED OF GRAM + COCCI RESULT FROM THORACENTESIS. DR. HOLLIS STATES PATIENT NEEDS TO COME BACK TO THE EMERGENCY DEPARTMENT TO BE ADMITTED THIS RN CALLED PATIENT AND CONTACT. NO ANSWER AT THIS TIME.
--- NOTE | 2025-03-31 19:41 | ED.RN ---
THIS RN ATTEMPTED TO REACH PATIENT BY PHONE FOR THE SECOND TIME WITH NO ANSWER. VOICEMAIL LEFT INFORMING PATIENT OF POSITIVE GRAM STAIN. PT INFORMED THAT HE WOULD NEED TO RETURN TO ED SOON POSSIBLE AFTER RECEIVING THE MESSAGE.
[2025-04-04 09:02] LABS: Pathologist Comment/Body Fluid Reviewed
== END 2025-03-31 16:14 | disposition home or self-care (01) ==
PROVIDERS: Emergency Provider Emergency Medicine; PCP Family Medicine; Visit Provider Emergency Medicine
DX: R18.8 Other ascites (principal); K74.60 Unspecified cirrhosis of liver; I50.22 Chronic systolic (congestive) heart failure; I13.0 Hypertensive heart and chronic kidney disease with heart failure and stage 1 through stage 4 chronic kidney disease, or unspecified chronic kidney disease; I48.20 Chronic atrial fibrillation, unspecified; N18.32 Chronic kidney disease, stage 3b; Z79.01 Long term (current) use of anticoagulants; T45.516A Underdosing of anticoagulants, initial encounter; T44.7X6A Underdosing of beta-adrenoreceptor antagonists, initial encounter; T50.1X6A Underdosing of loop [high-ceiling] diuretics, initial encounter; Z91.148 Patient's other noncompliance with medication regimen for other reason; Z86.711 Personal history of pulmonary embolism; Z86.718 Personal history of other venous thrombosis and embolism
CPT/HCPCS: 49083; 71045; 80048; 80076; 83690; 85025; 87070; 87075; 87205; 89050; 93005; 99284; A4216

== ENCOUNTER 2025-04-01 08:11 | Inpatient (IN) | payer OTHER, SELFPAY ==
[2025-04-01 08:12] VITALS: BP 95/78; PULSE 100; RESP 16; TEMP 36.3; O2SAT 93
[2025-04-01 08:14] VITALS: BMI 22.4
--- NOTE | 2025-04-01 08:57 | EX.ED.DYSGE1 ---
HPI History of Present Illness Chief Complaint: Abn Labs Narrative Narrative: Patient is a 45 year old presenting to the ED after being called by a nurse here with positive Gram stain results from a paracentesis done on 03/31. Patient has a past medical history of CHF, cirrhosis, CKD, A-fib and DVT/PE on Eliquis. For the patient had a paracentesis done on 03/31 for abdominal pain and feeling like he needed another paracentesis. He denies fever, vomiting, dysuria or hematuria. He does report chronic shortness of breath and cough that is not worse than baseline. He does also report new loss of appetite and feeling generally weak. Denies any changes to bowel habits. [facility] Medical History Ascites Cirrhosis Hypertension Medical non-compliance Chronic anticoagulation Chronic atrial fibrillation Hyperbilirubinemia Respiratory insufficiency Hypoxia Abdominal ascites Left ventricular ejection fraction less than 20% Heart block Abdominal ascites Kidney disease Non-smoker Irregular heart beat DVT (deep venous thrombosis) CKD stage 3b, GFR 30-44 ml/min Elevated bilirubin HFrEF (heart failure with reduced ejection fraction) CKD (chronic kidney disease) Cardiomyopathy Left bundle branch block Noncompliance Pulmonary embolism CHF (congestive heart failure) Home Medications ?Medication ?Instructions ?Recorded ?Last Taken ?Type apixaban 5 mg tablet (Eliquis) 5 mg PO BID blood thinner 01/04/25 03/14/25 History metoprolol tartrate 25 mg tablet 12.5 mg (1/2 x 25 mg) PO BID blood 02/16/25 03/14/25 Rx pressure #30 tabs torsemide 100 mg tablet 100 mg PO Q12.TCU diuretic 03/15/25 03/14/25 History Allergy/AdvReac Type Severity Reaction Status Date / Time No Known Allergies Allergy Verified 04/01/25 08:14 Family History Father Heart disease Brother Heart disease Social History Smoking Status: Never smoker alcohol intake: never substance use type: does not use ROS ROS ED ROS Narrative see HPI EXAM Physical Exam Narrative Exam Narrative: Vital signs: Reviewed General: Alert and orientedx3. No acute distress HEENT: Head is normocephalic and atraumatic, sinuses nontender, pupils equal round and reactive. Nares are patent. Oropharynx and throat exams normal. Neck: Supple without lymphadenopathy nontender Cardiovascular: Regular rate and rhythm, no murmurs. No rubs or gallops. Normal S1 and S2 Respiratory: Clear to auscultation bilaterally. No wheezes, rales, rhonchi Abdominal: Soft and protrudent. No tenderness to palpation on exam. No rigidity. Normal bowel sounds. No guarding or rebound. Nonsurgical abdomen Extremities: No tenderness. No bruising. Normal range of motion. Normal sensation. Skin: No rash or redness. Neurological: Cranial nerves II through XII are grossly intact. Normal strength and sensation. Normal cerebellar function The rest of the physical exam is unremarkable Const Vital Signs: 04/01/25 08:11 04/01/25 08:12 04/01/25 10:14 Temperature 97.4 F L 97.6 F L Temperature Source Oral Temporal Pulse Rate 100 84 Respiratory Rate 16 16 Respiratory Effort Normal Non-Labored Respiratory Pattern Normal Blood Pressure 95/78 98/81 H Blood Pressure Mean 83 86 Pulse Ox 93 97 Oxygen Delivery Method Room Air Room Air MDM MDM MDM Narrative Medical decision making narrative: Patient is a 45-year-old male presenting to the emergency department due to a nurse calling him here with positive Gram stain results from a paracentesis done yesterday. Patient was seen and examined. Vitals are stable. He is mildly hypotensive but this appears to be chronic for him especially in the mornings. He is resting in bed comfortably in no acute distress. I reviewed his Gram stain results which show rare gram-positive cocci and rare WBCs. This is likely contamination however with the patient having abdominal pain, nausea and loss of appetite it is difficult to rule SBP out completely. Blood culturesx2 obtained. Labs obtained. Given 2 g Rocephin for coverage of SBP. Patient agreeable with being admitted for observation and antibiotics. CBC with no leukocytosis and a normal hemoglobin. CMP with baseline bicarb, anion gap, total bilirubin, alk phos and kidney dysfunction. No new acute changes to his labs. Discussed with Dr. Bagley for admission for IV abx and continued monitoring. Clinical impression SBP History & Record Review Discussion w/independent historian: Patient and Significant other Additional record(s) reviewed:: Prior ED visit and Prior labs Lab Data Attestation: I reviewed the patient's lab results. Labs: Laboratory Results - last 24 hr 04/01/25 09:23 WBC 5.6 RBC 4.77 Hgb 15.8 Hct 48.6 MCV 101.9 H MCH 33.1 H MCHC 32.5 RDW Std Deviation 59.2 H RDW Coeff of Juan 15.9 H Plt Count 327 MPV 9.6 Immature Gran % (Auto) 0.200 Neut % (Auto) 47.2 Lymph % (Auto) 42.0 H [place] % (Auto) 9.3 Eos % (Auto) 0.4 Baso % (Auto) 0.9 Absolute Neuts (auto) 2.7 Absolute Lymphs (auto) 2.35 Nucleated RBC % 0.4 Sodium 140 Potassium 4.4 Chloride 103 Carbon Dioxide 19.4 L Anion Gap 18 H BUN 41 H Creatinine 2.88 H Estim Creat Clear Calc 34.53 L Est GFR (MDRD) Non-Af 26 L BUN/Creatinine Ratio 14.3 Glucose 111 H Calcium 9.5 Total Bilirubin 3.50 H AST 27 ALT 18 Alkaline Phosphatase 395 H Total Protein 6.9 Albumin 3.7 Globulin 3.2 Albumin/Globulin Ratio 1.1 Lipase 20 Discharge Plan Disposition Disposition: Acute Care Hospital [facility] Discharge Date/Time: 04/01/25 11:59
[2025-04-01 09:38] LABS: Hematocrit 48.6 % (40-54); Hemoglobin 15.8 g/dL (13.0-16.5); Immature Granulocytes Count 0.010 X10^3/uL (0.0-0.0); Mean Corp Hgb Conc 32.5 g/dL (32-36); Mean Corpuscular Volume 101.9 fL (80-94); Mean Platelet Vol. 9.6 fl (6.2-12.0); NRBC Flagged by Analyzer 0.4 % (0-5); Platelet Count 327 K/mm3 (150-450); RBC Distribution Width CV 15.9 % (11.6-14.6); RBC Distribution Width SD 59.2 fl (35.1-43.9); Red Blood Count 4.77 M/mm3 (4.6-6.2); White Blood Count 5.6 K/mm3 (4.4-11.0)
[2025-04-01 10:12] LABS: AST(SGOT) 27 U/L (<=37); Alanine Aminotransfer ALT/SGPT 18 U/L (<=46); Albumin, Serum 3.7 g/dL (3.5-5.0); Alkaline Phosphatase 395 U/L (40-129); Anion Gap 18 (5-15); BUN 41 mg/dL (4-19); BUN/Creat Ratio 14.3 RATIO (10-20); Calcium,Total 9.5 mg/dL (7.6-11.0); Carbon Dioxide 19.4 mmol/L (21.0-32.0); Chloride 103 mmol/L (98-108); Estimated Creatinine Clearance 34.53 ml/min (50-250); Globulin 3.2 g/dL (2.2-4.2); Glucose 111 mg/dL (70-99); Lipase 20 U/L (13-75); Potassium 4.4 mmol/L (3.3-5.1)
[2025-04-01 10:14] VITALS: BP 98/81; PULSE 84; RESP 16; TEMP 36.4; O2SAT 97
[2025-04-01] MEDS: Ceftriaxone 2 GM in 0.9% Normal Saline (50mL MB+) 50 ML IV (10:15)
--- NOTE | 2025-04-01 10:40 | HP.PCM.HOS_ITS ---
HPI - General General Date of Admission: 04/01/25 Date of Service: 04/01/25 Chief Complaint: abnormal labs HPI Narrative CLARIE MEDINA, is a 45 M with a PMH as outlined who presents via the ED on 04/01/2025 after being called in o/a of abnormal labs. He had paracentesis on 03/31/2025 nad cultures are growing rare gram positive cocci. He also complained of abdominal pain which was generalized. He denied any fever or chills, nausea or vomiting or any other symptoms. He just admitted to generally feeling weak. Vitals in the ED were BP of 98/81, NM of 84, RR of 16 and temp of 97.6F. He was saturating at 97% on room air. CBC showed hb of 15.8, wbc of 5.6, platelets of 327. Chemistry showed sodium of 140, potassium of 4.4 nad bicarb of 19.4. Creatinine is 2.88. Total bilirubin was 3.5, AST/ALT were 27/18 and ALP was 395. Fluid gram stain from ascitic fluid from 03/31/2025 showed rare gram positive cocci and rare white blood cells. He is being admitted to be managed for probable spontaneous bacterial peritonitis. [facility] Medical History Ascites Cirrhosis Hypertension Medical non-compliance Chronic anticoagulation Chronic atrial fibrillation Hyperbilirubinemia Respiratory insufficiency Hypoxia Abdominal ascites Left ventricular ejection fraction less than 20% Heart block Abdominal ascites Kidney disease Non-smoker Irregular heart beat DVT (deep venous thrombosis) CKD stage 3b, GFR 30-44 ml/min Elevated bilirubin HFrEF (heart failure with reduced ejection fraction) CKD (chronic kidney disease) Cardiomyopathy Left bundle branch block Noncompliance Pulmonary embolism CHF (congestive heart failure) Home Medications ?Medication ?Instructions ?Recorded ?Last Taken ?Type apixaban 5 mg tablet (Eliquis) 5 mg PO BID blood thinn er 01/04/25 03/14/25 History metoprolol tartrate 25 mg tablet 12.5 mg (1/2 x 25 mg) PO BID blood 02/16/25 03/14/25 Rx pressure #30 tabs torsemide 100 mg tablet 100 mg PO Q12.TCU diuretic 0 03/15/25 03/14/25 History Allergy/AdvReac Type Severity Reaction Status Date / Time No Known Allergies Allergy Verified 04/01/25 08:14 Family History Father Heart disease Brother Heart disease Social History Smoking Status: Never smoker alcohol intake: never substance use type: does not use ROS Constitutional Constitutional: Reports fatigue, malaise and weakness; Denies anorexia, chills or fever(s) Eyes Eyes: Denies change in vision ENT HEENT: Denies dysphagia, headache(s) or sore throat Cardiovascular Cardiovascular: Denies chest pain, dyspnea on exertion, edema, lightheadedness, orthopnea, palpitations, paroxysmal nocturnal dyspnea, rapid heart rate or syncope Respiratory/Chest Respiratory/Chest: Denies cough, dyspnea, shortness of breath at rest or shortness of breath with exertion Gastrointestinal Gastrointestinal: Reports abdominal pain and nausea; Denies constipation, diarrhea, melena or vomiting Genitourinary Genitourinary: Denies difficulty urinating or dysuria Musculoskeletal Musculoskeletal: Denies joint pain Neurologic Neurologic: Denies confusion, dizziness, focal weakness, headache(s), numbness, paresthesias or seizures Psychiatric Psychiatric: Denies anxiety or depression Vital Signs Vital Signs Vital Signs: 04/01/25 08:11 04/01/25 08:12 04/01/25 10:14 Temperature 97.4 F L 97.6 F L Temperature Source Oral Temporal Pulse Rate 100 84 Respiratory Rate 16 16 Respiratory Effort Normal Non-Labored Respiratory Pattern Normal Blood Pressure 95/78 98/81 H Blood Pressure Mean 83 86 Pulse Ox 93 97 Oxygen Delivery Method Room Air Room Air Weight Weight: 169 lb 12.095 oz Body Mass Index (BMI) 22.4 Physical Exam Const alert, oriented x3 and no apparent distress General Appearance: cooperative HEENT normocephalic, head/scalp atraumatic, hearing grossly normal bilaterally and moist oral mucous membranes Mouth: oral and palatal mucosa normal Eyes EOMs intact bilaterally and conjunctivae normal Neck supple Resp normal respiratory effort, no use of accessory muscles and clear to auscultation bilaterally Cardio regular rate, regular rhythm, S1 normal heart sound, S2 normal heart sound and no murmurs GI GI Narrative: Abdomen mildly distended with positive fluid thrill. Had no tenderness on palpation and no organomegaly. Extremity normal to inspection and full ROM Extremity Narrative: Mild 1+ bipedal pitting edema Neuro oriented x3, CN's II-XII intact bilaterally, moves all extremities and no focal motor deficits Sensorium / Orientation: awake and alert Motor Exam: strength 5/5 throughout Psych affect normal Results Lab / Micro Data 04/01/25 09:23 04/01/25 09:23 Labs: Laboratory Results - last 24 hr 04/01/25 09:23: WBC 5.6, RBC 4.77, Hgb 15.8, Hct 48.6, MCV 101.9 H, MCH 33.1 H, MCHC 32.5, RDW Std Deviation 59.2 H, RDW Coeff of Juan 15.9 H, Plt Count 327, MPV 9.6, Immature Gran % (Auto) 0.200, Neut % (Auto) 47.2, Lymph % (Auto) 42.0 H, [place] % (Auto) 9.3, Eos % (Auto) 0.4, Baso % (Auto) 0.9, Absolute Neuts (auto) 2.7, Absolute Lymphs (auto) 2.35, Nucleated RBC % 0.4, Sodium 140, Potassium 4.4, Chloride 103, Carbon Dioxide 19.4 L, Anion Gap 18 H, BUN 41 H, Creatinine 2.88 H, Estim Creat Clear Calc 34.53 L, Est GFR (MDRD) Non-Af 26 L, BUN/Creatinine Ratio 14.3, Glucose 111 H, Calcium 9.5, Total Bilirubin 3.50 H, AST 27, ALT 18, Alkaline Phosphatase 395 H, Total Protein 6.9, Albumin 3.7, Globulin 3.2, Albumin/Globulin Ratio 1.1, Lipase 20 Assessment & Plan Assessment/Plan (1) Nausea & vomiting: (2) SBP (spontaneous bacterial peritonitis): PLAN: Plan #Spontaneous bacterial peritonitis * Patient has known history of cirrhosis of the liver. He had paracentesis done yesterday. He was called to come back to the ED today because labs done on the fluid showed rare gram-positive cocci. * Patient started on IV ceftriaxone for SBP. He is complaining of abdominal pain. * WBC is not elevated. Await fluid culture results. #History of cirrhosis of the liver: On metoprolol and torsemide. #History of congestive heart failure with reduced ejection fraction: * Not in exacerbation. On torsemide * Has known EF of 15%. This it may likely be why he is on the Eliquis. Will need follow-up with cardiology on outpatient basis to be evaluated for ICD * Also on metoprolol. #History of CKD stage IV: Creatinine is 2.88 and eGFR is 26. Monitor closely. DVT prophylaxis: Already on Eliquis CODE STATUS: Full code * Patient counseled extensively about different types of CODE STATUS including full code, DNR CCA and DNR CCA. Patient elects to be full code. * Total [id number] time 16 minutes. Charges/Coding Visit Charges Inpatient E&M: 25029 Init Hosp L3 Procedures Hospitalists Procedures: 34865 Advncd Care Plan 30 Min
[2025-04-01 11:13] VITALS: BP 98/81; PULSE 84; RESP 16; TEMP 36.4; O2SAT 97
[2025-04-01 11:58] VITALS: BP 99/85; PULSE 89; RESP 17; TEMP 36.5; O2SAT 100; BMI 20.4
--- NOTE | 2025-04-01 16:24 | NURSING ---
Report given to CRISTINE Grace
[2025-04-01 17:27] VITALS: BP 95/75; PULSE 100; RESP 17; TEMP 36.6; O2SAT 98
[2025-04-01] MEDS: 0.9% Saline Lock 10 ML Syringe IV (17:36)
[2025-04-01 20:48] VITALS: BP 94/82; PULSE 100; RESP 16; RESP 18; TEMP 36.5; O2SAT 99
[2025-04-02 03:00] VITALS: BP 99/84; PULSE 90; RESP 16; RESP 18; TEMP 36.4; O2SAT 94
[2025-04-02 05:41] LABS: Hematocrit 43.8 % (40-54); Hemoglobin 14.0 g/dL (13.0-16.5); Immature Granulocytes Count 0.010 X10^3/uL (0.0-0.0); Mean Corp Hgb Conc 32.0 g/dL (32-36); Mean Corpuscular Volume 103.5 fL (80-94); Mean Platelet Vol. 9.7 fl (6.2-12.0); NRBC Flagged by Analyzer 0.6 % (0-5); Platelet Count 285 K/mm3 (150-450); RBC Distribution Width CV 15.6 % (11.6-14.6); RBC Distribution Width SD 60.0 fl (35.1-43.9); Red Blood Count 4.23 M/mm3 (4.6-6.2); White Blood Count 5.2 K/mm3 (4.4-11.0)
[2025-04-02 06:06] LABS: Anion Gap 17 (5-15); BUN 44 mg/dL (4-19); BUN/Creat Ratio 15.0 RATIO (10-20); Calcium,Total 8.6 mg/dL (7.6-11.0); Carbon Dioxide 14.8 mmol/L (21.0-32.0); Chloride 106 mmol/L (98-108); Estimated Creatinine Clearance 31.01 ml/min (50-250); Glucose 101 mg/dL (70-99); Potassium 4.9 mmol/L (3.3-5.1)
[2025-04-02 08:43] LABS: AST(SGOT) 24 U/L (<=37); Alanine Aminotransfer ALT/SGPT 14 U/L (<=46); Albumin, Serum 3.1 g/dL (3.5-5.0); Alkaline Phosphatase 311 U/L (40-129); Bilirubin, Direct 1.51 mg/dL (0.00-0.30); Globulin 2.6 g/dL (2.2-4.2)
[2025-04-02 09:00] VITALS: BP 104/85; PULSE 93; RESP 18; TEMP 36.4; O2SAT 95
[2025-04-02 09:15] VITALS: PULSE 93
[2025-04-02] MEDS: APIXABAN 5 MG TABLET PO (09:15)
--- NOTE | 2025-04-02 11:25 | PN_ITS ---
Subjective Subjective Patient seen and examined. He said he is feeling much better today and had no active complaints. His abdominal pain had improved. Review of systems otherwise negative. He has remained hemodynamically stable. Objective Data Objective Data Vital Signs: Vital Signs Temp Pulse Resp BP Pulse Ox O2 Del Method 97.5 F L 93 18 104/85 H 95 Room Air 04/02/25 09:00 04/02/25 09:15 04/02/25 09:00 04/02/25 09:00 04/02/25 09:00 04/02/25 09:40 Oxygen Delivery Method Room Air Weight: 154 lb 8.705 oz Body Mass Index (BMI) 20.4 Intake & Output: Intake and Output for Last 24 Hours 03/31/25 04/01/25 04/02/25 23:59 23:59 23:59 Intake Total 400 / 400 50 / 50 Balance 400 / 400 50 / 50 Lab / Micro Data 04/02/25 04:56 04/02/25 04:56 Labs: Laboratory Results - last 24 hr 04/02/25 04:56: WBC 5.2, RBC 4.23 L, Hgb 14.0, Hct 43.8, MCV 103.5 H, MCH 33.1 H , MCHC 32.0, RDW Std Deviation 60.0 H, RDW Coeff of Juan 15.6 H, Plt Count 285, MPV 9.7, Immature Gran % (Auto) 0.200, Neut % (Auto) 46.9 L, Lymph % (Auto) 39.7, [place] % (Auto) 12.2 H, Eos % (Auto) 0.4, Baso % (Auto) 0.6, Absolute Neuts (auto) 2.4, Absolute Lymphs (auto) 2.05, Nucleated RBC % 0.6, Sodium 138, Potassium 4.9, Chloride 106, Carbon Dioxide 14.8 L, Anion Gap 17 H, BUN 44 H, C reatinine 2.92 H, Estim Creat Clear Calc 31.01 L, Est GFR (MDRD) Non-Af 26 L, BUN/Creatinine Ratio 15.0, Glucose 101 H, Calcium 8.6, Total Bilirubin 2.33 H, D irect Bilirubin 1.51 H, AST 24, ALT 14, Alkaline Phosphatase 311 H, Total Protein 5.7 L, Albumin 3.1 L, Globulin 2.6 Physical Exam Const alert, oriented x3 and no apparent distress General Appearance: cooperative HEENT normocephalic, head/scalp atraumatic, hearing grossly normal bilaterally and moist oral mucous membranes Eyes EOMs intact bilaterally and conjunctivae normal Neck supple Resp normal respiratory effort, normal air movement, no use of accessory muscles and clear to auscultation bilaterally Cardio regular rate, regular rhythm, S1 normal heart sound, S2 normal heart sound and no murmurs GI GI Narrative: Abdomen mildly distended with positive fluid thrill. Had no tenderness on palpation and no organomegaly. Extremity normal to inspection and full ROM Extremity Narrative: Mild 1+ bipedal pitting edema Skin General Skin Exam: no breakdown Neuro oriented x3, CN's II-XII intact bilaterally, moves all extremities and no focal motor deficits Sensorium / Orientation: awake and alert Motor Exam: strength 5/5 throughout Psych thought process normal, cooperative and affect normal Appearance: appropriate Assessment & Plan Assessment/Plan (1) Nausea & vomiting: (2) SBP (spontaneous bacterial peritonitis): PLAN: Plan #Spontaneous bacterial peritonitis * Patient has known history of cirrhosis of the liver. He had paracentesis done yesterday. He was called to come back to the ED today because labs done on the fluid showed rare gram-positive cocci. * on IV ceftriaxone for SBP. abdominal pain has resolved. * WBC is not elevated at 5.2 today. Await fluid culture results. #History of cirrhosis of the liver: On metoprolol and torsemide. #History of congestive heart failure with reduced ejection fraction: * Not in exacerbation. On torsemide * Has known EF of 15%. This it may likely be why he is on the Eliquis. Will need follow-up with cardiology on outpatient basis to be evaluated for ICD * Also on metoprolol. #History of CKD stage IV: Creatinine is slightly up to 2.92 today. Monitor closely. DVT prophylaxis: Already on Eliquis CODE STATUS: Full code * Charges/Coding Visit Charges Inpatient E&M: 83669 Subs Hosp L2
[2025-04-02 15:00] VITALS: BP 136/78; PULSE 95; RESP 17; TEMP 36.6; O2SAT 95
[2025-04-02 21:00] VITALS: BP 102/68; PULSE 82; RESP 18; TEMP 36.7; O2SAT 98
[2025-04-02] MEDS: 0.9% Saline Lock 10 ML Syringe IV (21:09)
--- NOTE | 2025-04-02 23:00 | NURSING ---
Pt refusing nightime medication stating I asked for Zofran and didn't get it so I am not taking my medication or it will make me throw up. This RN educated patient on the importance of his medication and why he it is important to take. Offered Zofran, and patient received a dose - see MAR. This RN checked back with patient to see if patient's nausea is any better. Pt states My nausea has improved but I am not taking my meds. They are making me sick.
[2025-04-03] VITALS (11 sets, daily range): BP systolic 85–136; BP diastolic 45–87; PULSE 88–103; RESP 16–20; TEMP 36.4–37.1; O2SAT 95–100
--- NOTE | 2025-04-03 06:25 | NURSING ---
Patient refused AM medications stating I do not take my meds this early and they make me sick to my stomach so I will not be taking them. Patient educated on importance of taking medications and what they are prescribedc for. Patient refusing any further care.
[2025-04-03 07:19] LABS: Hematocrit 40.7 % (40-54); Hemoglobin 13.9 g/dL (13.0-16.5); Immature Granulocytes Count 0.010 X10^3/uL (0.0-0.0); Mean Corp Hgb Conc 34.2 g/dL (32-36); Mean Corpuscular Volume 99.3 fL (80-94); Mean Platelet Vol. 9.8 fl (6.2-12.0); NRBC Flagged by Analyzer 0.4 % (0-5); Platelet Count 242 K/mm3 (150-450); RBC Distribution Width CV 15.5 % (11.6-14.6); RBC Distribution Width SD 56.1 fl (35.1-43.9); Red Blood Count 4.10 M/mm3 (4.6-6.2); White Blood Count 5.6 K/mm3 (4.4-11.0)
[2025-04-03 08:01] LABS: Anion Gap 17 (5-15); BUN 46 mg/dL (4-19); BUN/Creat Ratio 14.5 RATIO (10-20); Calcium,Total 8.7 mg/dL (7.6-11.0); Carbon Dioxide 17.4 mmol/L (21.0-32.0); Chloride 103 mmol/L (98-108); Estimated Creatinine Clearance 28.38 ml/min (50-250); Glucose 93 mg/dL (70-99); Potassium 5.1 mmol/L (3.3-5.1)
--- NOTE | 2025-04-03 11:22 | PN_ITS ---
Subjective Subjective Patient seen and examined. He still complains of abdominal pain. He had no complaints and review of systems is otherwise negative. He feels like he is filling back up with fluid again. Objective Data Objective Data Vital Signs: Vital Signs Temp Pulse Resp BP Pulse Ox O2 Del Method 97.5 F L 94 16 105/66 98 Room Air 04/03/25 09:00 04/03/25 09:00 04/03/25 09:00 04/03/25 09:00 04/03/25 09:00 04/03/25 09:00 Oxygen Delivery Method Room Air Weight: 154 lb 8.705 oz Body Mass Index (BMI) 20.4 Intake & Output: Intake and Output for Last 24 Hours 04/01/25 04/02/25 04/03/25 23:59 23:59 23:59 Intake Total 400 / 400 290 / 590 590 / 590 Balance 400 / 400 290 / 590 590 / 590 Lab / Micro Data 04/03/25 06:46 04/03/25 06:46 Labs: Laboratory Results - last 24 hr 04/03/25 06:46: WBC 5.6, RBC 4.10 L, Hgb 13.9, Hct 40.7, MCV 99.3 H, MCH 33.9 H, MCHC 34.2 D, RDW Std Deviation 56.1 H, RDW Coeff of Juan 15.5 H, Plt Count 242, MPV 9.8, Immature Gran % (Auto) 0.200, Neut % (Auto) 50.6, Lymph % (Auto) 37.3, [place] % (Auto) 10.7 H, Eos % (Auto) 0.5, Baso % (Auto) 0.7, Absolute Neuts (auto) 2.8, Absolute Lymphs (auto) 2.09, Nucleated RBC % 0.4, Sodium 137, Potassium 5.1, Chloride 103, Carbon Dioxide 17.4 L, Anion Gap 17 H, BUN 46 H, Creatinine 3.19 H, Estim Creat Clear Calc 28.38 L, Est GFR (MDRD) Non-Af 23 L, BUN/Creatinine Ratio 14.5, Glucose 93, Calcium 8.7 Physical Exam Const alert, oriented x3 and no apparent distress General Appearance: cooperative HEENT normocephalic, head/scalp atraumatic, hearing grossly normal bilaterally and moist oral mucous membranes Eyes EOMs intact bilaterally and conjunctivae normal Neck supple Resp normal respiratory effort, normal air movement, no use of accessory muscles and clear to auscultation bilaterally Cardio regular rate, regular rhythm, S1 normal heart sound, S2 normal heart sound and no murmurs GI GI Narrative: Abdomen moderately distended with positive fluid thrill. Had no tenderness on palpation and no organomegaly. Extremity normal to inspection and full ROM Extremity Narrative: Mild 1+ bipedal pitting edema General Extremity: no tenderness to palpation of joints or extremities Skin General Skin Exam: no breakdown Neuro oriented x3, CN's II-XII intact bilaterally, moves all extremities and no focal motor deficits Sensorium / Orientation: awake and alert Motor Exam: strength 5/5 throughout Psych thought process normal, cooperative and affect normal Appearance: appropriate Assessment & Plan Assessment/Plan (1) Nausea & vomiting: (2) SBP (spontaneous bacterial peritonitis): PLAN: Plan #Spontaneous bacterial peritonitis * Patient has known history of cirrhosis of the liver. He had paracentesis done yesterday. He was called to come back to the ED today because labs done on the fluid showed rare gram-positive cocci. * on IV ceftriaxone for SBP. abdominal pain has resolved. * WBC is not elevated at 5.6 today. Fluid culture preliminary results are negative. * Will order therapeutic paracentesis for tomorrow as his abdomen is started feeling up again. * #History of cirrhosis of the liver: On metoprolol and torsemide. Has been refusing his metoprolol. #History of congestive heart failure with reduced ejection fraction: * Not in exacerbation. On torsemide * Has known EF of 15%. This it may likely be why he is on the Eliquis. Will need follow-up with cardiology on outpatient basis to be evaluated for ICD * Also on metoprolol. #History of CKD stage IV: Creatinine is slightly further up to 3.19 today. IF it continues to trend upwards will consult nephrology. Monitor closely. DVT prophylaxis: Already on Eliquis. Hold Eliquis today in preparation for paracentesis tomorrow. CODE STATUS: Full code Disposition; DC tomorrow after therapeutic paracentesis * Charges/Coding Visit Charges Inpatient E&M: 18514 Subs Hosp L2
--- NOTE | 2025-04-03 15:53 | NURSING ---
pt arrived to unit [facility] to bedside. a&OX3. breathing even/ unlabored. no distress noted. pt c/o abd pain 12/07 aware pt refused to take oxyir states too hard to take and refused to take it crushed requesting iv pain medication. noted bp. discussed with patient low bp, lower than typically is here. discussed with patient will discuss request and vitals with physican. dr. lemus sent text.
--- NOTE | 2025-04-03 15:59 | NURSING ---
Pt arrived on floor, complaints of pain level of 6-7 in the abdominal region, offered PRN oxy for pain, pt refused stating he only wants IV pain medication. BP 85/45 and heart rate 103, notified supervisor propellant charge loading nurse Soniya of both. Pt states oral medication crushed in ( how he takes oral meds ) does not work for him. Complaints of being moved from PCU to MS3 when he belives he will be DC tomorrow. Jeancarlos REED
--- NOTE | 2025-04-03 16:13 | NURSING ---
pt updated on response/new order from Dr. Bagley. pt given cup as requested. pt denies all further needs. curtain and door closed as requested. call light within reach.
--- NOTE | 2025-04-03 22:00 | NURSING ---
This RN in to see pt; pt refused to take night time medications; Vitals taken, triggered 1-2 hour vitals; pt encouraged to drink fluids, pt stated I do not need to drink anything. It makes me feel worse. I just need to get my paracentesis done tomorrow.
[2025-04-04 03:20] VITALS: BP 99/78; PULSE 86; RESP 16; TEMP 36.6; O2SAT 100
[2025-04-04 07:09] VITALS: O2SAT 98
[2025-04-04 09:11] VITALS: BP 101/79; PULSE 99; RESP 18; TEMP 36.6; O2SAT 96
[2025-04-04 09:15] VITALS: RESP 18
--- NOTE | 2025-04-04 11:00 | PN_ITS ---
Subjective Subjective Patient seen and examined with his nurse by his bedside. He had no active complaints. He is on 2 L of oxygen. His abdomen still has mild distention. Patient was due to get paracentesis today but radiology says since he got Eliquis on Friday they would rather he have a paracentesis tomorrow. Patient is insistent he did not have Eliquis on Friday. Patient informed that if discharged or that he received Eliquis on Friday at 9:15 AM. Patient also refusing blood work this morning. Review of systems otherwise negative. Objective Data Objective Data Vital Signs: Vital Signs Temp Pulse Resp BP Pulse Ox O2 Del Method O2 Flow Rate 97.8 F 99 18 101/79 96 Nasal Cannula 2 04/04/25 09:11 04/04/25 09:11 04/04/25 09:15 04/04/25 09:11 04/04/25 09:11 04/04/25 09:15 04/04/25 09:15 Oxygen Flow Rate (L/min) 2 Oxygen Delivery Method Nasal Cannula Weight: 154 lb 8.705 oz Body Mass Index (BMI) 20.4 Intake & Output: Intake and Output for Last 24 Hours 04/02/25 04/03/25 04/04/25 23:59 23:59 23:59 Intake Total 290 / 590 790 / 790 Balance 290 / 590 790 / 790 Lab / Micro Data 04/03/25 06:46 04/03/25 06:46 Physical Exam Const alert, oriented x3 and no apparent distress General Appearance: cooperative HEENT normocephalic, head/scalp atraumatic, hearing grossly normal bilaterally and moist oral mucous membranes Eyes EOMs intact bilaterally and conjunctivae normal Neck supple Resp Resp Narrative: Mildly diminished breath sounds bibasilarly. No wheezes or crackles. On 2 L of oxygen. Cardio regular rate, regular rhythm, S1 normal heart sound, S2 normal heart sound and no murmurs GI GI Narrative: Abdomen moderately distended with positive fluid thrill. Had no tenderness on palpation and no organomegaly. Extremity normal to inspection and full ROM Extremity Narrative: Mild 1+ bipedal pitting edema General Extremity: no tenderness to palpation of joints or extremities Skin General Skin Exam: no breakdown Neuro oriented x3, CN's II-XII intact bilaterally, moves all extremities and no focal motor deficits Sensorium / Orientation: awake and alert Motor Exam: strength 5/5 throughout Psych thought process normal, cooperative and affect normal Appearance: appropriate Assessment & Plan Assessment/Plan (1) Nausea & vomiting: (2) SBP (spontaneous bacterial peritonitis): PLAN: Plan #Spontaneous bacterial peritonitis * Patient has known history of cirrhosis of the liver. He had paracentesis done yesterday. He was called to come back to the ED today because labs done on the fluid showed rare gram-positive cocci. * on IV ceftriaxone for SBP. abdominal pain has resolved. * Fluid cultures negative. * Paracentesis ordered for tomorrow. He cannot have it done today because of him receiving Eliquis on the morning of 04/02/2025. * Will DC antibiotics as cultures are negative. * Patient does not want to have it done on outpatient basis. * #History of cirrhosis of the liver: On metoprolol and torsemide. Has been refusing his metoprolol. #History of congestive heart failure with reduced ejection fraction: * Not in exacerbation. On torsemide * Has known EF of 15%. This it may likely be why he is on the Eliquis. Will need follow-up with cardiology on outpatient basis to be evaluated for ICD. Patient counseled that it is imperative he follows up with cardiology on outpatient basis. Will refer him to [facility]. * Also on metoprolol. #History of CKD stage IV: Patient refused BMP and liver profile blood draw this morning. Creatinine was 3.19 yesterday Which is slightly higher than his baseline. Will monitor closely. DVT prophylaxis: Already on Eliquis. Eliquis held in preparation for therapeutic paracentesis tomorrow. CODE STATUS: Full code Disposition; likely DC tomorrow after therapeutic paracentesis. * Charges/Coding Visit Charges Inpatient E&M: 64119 Subs Hosp L2
--- NOTE | 2025-04-04 12:20 | NURSING ---
Pt had an unwitnessed emesis of approx 200ml.
[2025-04-04] MEDS: 0.9% Saline Lock 10 ML Syringe IV (12:24)
--- NOTE | 2025-04-04 12:56 | CASEMGMT ---
Addendum entered by Dennise Galeano 04/04/25 15:13: CRISTINE MACIAS back into pt room, pt is aware that he may receive a bill from [facility] that is his responsibility, pt states that's fine. Pt still declines trf to another hospital. Original Note: Received message from CATHLEEN Perez who states pt is out of network here at [facility] and that the physician may transfer pt to [facility] and provided trf line phone number. CRISTINE MACIAS into pt room, pt lying in bed in no distress, relayed the information to pt. Pt states that he does not want to trf to [facility]. He states he has not received a bill from [facility] that wasn't paid. Pt states he wants to stay at [facility]. Relayed message to Chris CONNOLLY.
[2025-04-04 15:03] VITALS: BP 87/62; PULSE 98; RESP 16; TEMP 36.6; O2SAT 96
[2025-04-04 20:11] VITALS: BP 104/78; PULSE 92; RESP 16; TEMP 36.6; O2SAT 99
[2025-04-05] VITALS (11 sets, daily range): BP systolic 92–104; BP diastolic 62–88; PULSE 77–99; RESP 16–18; TEMP 36.4–37.1; O2SAT 94–100
--- NOTE | 2025-04-05 07:00 | US_ITS ---
PROCEDURE: PARACENTESIS WITH US 04/05/2025 REASON FOR EXAM: ASCITES, recurrent TECHNIQUE: PARACENTESIS WITH US FINDINGS: Following informed consent, and using standard sterile technique, an ultrasound- guided right abdominal paracentesis was performed. 2% lidocaine local anesthesia was followed by placement of a 5 Yor[place] Yueh catheter into the abdominal fluid collection. Approximately 5200 mL clear yellow fluid is successfully removed. No complication was encountered, in the patient left the department in good condition without significant complaint. US/Paracentesis with US IMPRESSION: Successful therapeutic abdominal ultrasound-guided paracentesis. Reading Location: [place] [address]
--- NOTE | 2025-04-05 07:31 | PN.HOSP_ITS ---
Reason for Visit Chief Complaint: abnormal labs Objective Data Objective Data Vital Signs: Vital Signs Temp Pulse Resp BP Pulse Ox O2 Del Method O2 Flow Rate 98.8 F 95 18 96/72 96 Room Air 2 04/05/25 04:04 04/05/25 04:04 04/05/25 04:04 04/05/25 04:04 04/05/25 07:19 04/05/25 07:19 04/04/25 14:54 Oxygen Flow Rate (L/min) 2 Oxygen Delivery Method Room Air Weight: 154 lb 8.705 oz Body Mass Index (BMI) 20.4 Intake & Output: Intake and Output for Last 24 Hours 04/03/25 04/04/25 04/05/25 23:59 23:59 23:59 Intake Total 790 / 790 50 / 50 Balance 790 / 790 50 / 50 Lab / Micro Data 04/03/25 06:46 04/03/25 06:46 Physical Exam Narrative Seen and examined. Patient had paracentesis in the morning blood pressure in low 100 to 90s. Has cardiac cirrhosis and chronic HF with EF 15% and with cirrhosis hypervolemia physiology, low BP is expected. No chest pain. Feels mild short of breath. Physical exam General: Alert, Oriented x3, Cooperative HEENT: Atraumatic, PERRLA, EOMI, Normocephalic. Oral: No Gingival or Mucosal Lesions/ Ulcerations Neck: Supple, No JVD, Negative Carotid Bruits Chest wall/Lungs: Air entry diminished in bilateral lung bases. No crepitation/rhonchi Cardiovascular: Soft heart sound no M/G/R Abdomen: Status post paracentesis. No leaking of fluid. Bowel Sounds Present, Soft, Non Tender, : No dysuria. No renal angle tenderness. No suprapubic tenderness. Extremities: No edema, Capillary Refill Less than 3 Seconds Skin: No rashes, No breakdown Musculoskeletal: No Tenderness to Palpation of Joints or Extremities Neurological: Cranial nerves II-XII grossly intact, DTR 2+/4. No acute focal neurological deficit. Psych/Mental Status: Normal Affect, Appropriate. Assessment & Plan Assessment/Plan (1) Nausea & vomiting: (2) SBP (spontaneous bacterial peritonitis): PLAN: Plan #Spontaneous bacterial peritonitis ruled out * Patient has known history of cirrhosis of the liver. He had paracentesis done yesterday. He was called to come back to the ED today because labs done on the fluid showed rare gram-positive cocci. * on IV ceftriaxone for SBP. abdominal pain has resolved. * Fluid cultures negative. * Paracentesis ordered for tomorrow. He cannot have it done today because of him receiving Eliquis on the morning of 04/02/2025. * Will DC antibiotics as cultures are negative. * Patient does not want to have it done on outpatient basis. 04/05: Patient had ultrasound-guided 5200 mL clear yellow fluid removed. Patient on baseline torsemide 100 mg twice daily, metoprolol tartrate. BP low therefore not candidate for LUCRECIA/ARB. During previous hospitalization, fluid analysis was negative for SBP and Gram stain shows no cells. Patient advised to follow-up [facility] r d intern as he had in the past and with young age he is a good candidate for transplant listing. INR 1.7. Patient on Eliquis. Decompensated cardiac cirrhosis Low BP:Hold metoprolol and torsemide. 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 On torsemide * Has known EF of 15% with stage III diastolic dysfunction, severe global hypokinesis, mildly dilated RV, 3+ eccentric MR, 1+ TR, 1+ AI 1+ PI. Advised follow-up with cardiology on outpatient basis to be evaluated for ICD. Patient counseled that it is imperative he follows up with cardiology on outpatient basis. Will refer him to [place] cardiology. * Also on metoprolol. #History of CKD stage IV: Patient refused BMP and liver profile blood draw this morning. Creatinine was 3.19 yesterday Which is slightly higher than his baseline. Will monitor closely. Patient refusing further lab work. Last lab on 04/03 with BUN/creatinine 46/3.19, increased from 2.92. During previous hospitalization his creatinine was 2.0. Hold Lasix. DVT prophylaxis: Already on Eliquis. Eliquis held in preparation for therapeutic paracentesis tomorrow. CODE STATUS: Full code Patient feels more short of breath and low BP therefore not ready for discharge laboratory Results 04/05/25 07:11: PT 20.7 H, INR 1.7, APTT 35.2, Total Bilirubin 2.92 H, Direct Bilirubin 1.82 H, AST 46 H, ALT 25, Alkaline Phosphatase 440 H, Total Protein 6.1, Albumin 3.3 L, Globulin 2.8 Charges/Coding Visit Charges Inpatient E&M: 75930 Subs Hosp L2
[2025-04-05 08:14] LABS: AST(SGOT) 46 U/L (<=37); Alanine Aminotransfer ALT/SGPT 25 U/L (<=46); Albumin, Serum 3.3 g/dL (3.5-5.0); Alkaline Phosphatase 440 U/L (40-129); Bilirubin, Direct 1.82 mg/dL (0.00-0.30); Globulin 2.8 g/dL (2.2-4.2)
[2025-04-05 08:42] LABS: Prothrombin Time (Protime)PT. 20.7 SECONDS (11.7-14.9)
[2025-04-05 08:43] LABS: Partial Thromboplast Time 35.2 Seconds (24.1-36.2)
[2025-04-05] MEDS: Lidocaine 2% (20 ml mdv) 20 ML Vial INFILT (10:40)
--- NOTE | 2025-04-05 13:50 | CASEMGMT ---
Addendum entered by Dennise Galeano 04/05/25 14:57: CRISTINE MACIAS received notification from radiology who reached out to Dr. Ash that she is not able to order paracentesis. Requested law secretary set up appt at dc with Dr. Berg and not parking garage manager, she will do so. Pt aware that Dr. Ash is not able to order the above. Pt denies further needs. Original Note: RN CM into pt room, pt lying in bed. Discussed with pt his goals in care. Pt states he wants to feel better. Pt is not very forthcoming in the conversation and stares at RN CM. Pt states he does not have a GI doctor but he wants to get established with Dr. Arnold. He is aware that this RN CM can reach out to his PCP to see if she is willing to send an order for the paracentesis to be scheduled so he can avoid the ER. Pt is reluctantly agreeable to this. Pt states he does not have a burner tender but has seen at [facility]. He is agreeable to RN CM setting up an appt with . He prefers not early in the morning. Pt states he was told in the past to have an ICD that he will need to be on meds for 3 mos prior. He states that he is willing to do this. Pt also reports prescribes his eliquis. Pt denies any further needs at this time. He wants appts placed on dc instructions, not for this RN CM to verbally tell him. He is aware that these appt will be set up and he states he will do his part to follow through with them.
[2025-04-06 05:55] VITALS: BP 98/66; PULSE 77; RESP 16; TEMP 36.6; O2SAT 94
[2025-04-06 09:20] VITALS: BP 96/85; PULSE 86; PULSE 92; RESP 16; TEMP 36.3; O2SAT 99
--- NOTE | 2025-04-06 10:38 | PCM.DC ---
Discharge Instructions DC O2, CPAP, BIPAP needs Home O2 Discharge instructions: No Follow Up Care Test Results: Test results from this visit will be discussed in further detail at your follow-up appointment, if applicable. Discharge Plan Admission Admit Date/Time: 04/01/25 10:39 Attending Provider: Phil Newell Primary Care Provider: Rosaline Ash Consulting Providers: Smiley Bagley Instructions Additional Instructions / Restrictions: Patient can follow-up in [facility] hepatology [place] as as he might be a good transplant candidate and evaluation. Patient can have outpatient paracentesis from PCP Discharge Orders/Prescriptions Prescriptions: Continued torsemide 100 mg tablet 100 mg PO Q12.TCU Eliquis 5 mg tablet 5 mg PO BID metoprolol tartrate 25 mg Tablet 12.5 mg PO BID Qty: 30 0RF Referrals / Follow Up: Joel Berg MD [Med Staff - Active Staff, Cardiology] - 04/20/25 2:30 pm Rosaline Ash, DO [Primary Care Provider, Family Practice] Disposition Disposition (needs filled in before D/C Order can be placed): Home, Self Care
--- NOTE | 2025-04-06 10:40 | DS.PCM_ITS ---
Providers Date of Admission: 04/01/25 Date of Discharge: 04/06/25 Primary Care Physician: Rosaline Ash [facility], DO Reason For Visit: PROBABLE SBP Diagnosis Discharge Diagnosis (1) Nausea & vomiting: Status: Acute Code(s): R11.2 - Nausea with vomiting, unspecified (2) SBP (spontaneous bacterial peritonitis): Status: Acute Code(s): K65.2 - Spontaneous bacterial peritonitis Plan #Spontaneous bacterial peritonitis ruled out * Patient has known history of cirrhosis of the liver. He had paracentesis done yesterday. He was called to come back to the ED today because labs done on the fluid showed rare gram-positive cocci. * on IV ceftriaxone for SBP. abdominal pain has resolved. * Fluid cultures negative. * Paracentesis ordered for tomorrow. He cannot have it done today because of him receiving Eliquis on the morning of 04/02/2025. * Will DC antibiotics as cultures are negative. * Patient does not want to have it done on outpatient basis. 04/05: Patient had ultrasound-guided 5200 mL clear yellow fluid removed. Patient on baseline torsemide 100 mg twice daily, metoprolol tartrate. BP low therefore not candidate for LUCRECIA/ARB. During previous hospitalization, fluid analysis was negative for SBP and Gram stain shows no cells. 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 INR 1.7. Patient on Eliquis. 04/06: Patient refused lab for last 3 days. He wants paracentesis as an outpatient which can be done prescribed by his PCP. As mentioned above he might be a good transplant candidate and needs transplant evaluation therefore follow- up in clinic clinic. Decompensated cardiac cirrhosis Low BP:Hold metoprolol and torsemide. 04/06: Patient can resume torsemide and metoprolol from tomorrow. 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 On torsemide * Has known EF of 15% with stage III diastolic dysfunction, severe global hypokinesis, mildly dilated RV, 3+ eccentric MR, 1+ TR, 1+ AI 1+ PI. Advised follow-up with cardiology on outpatient basis to be evaluated for ICD. Patient counseled that it is imperative he follows up with cardiology on outpatient basis. Will refer him to [place] cardiology. * Also on metoprolol. #History of CKD stage IV: Patient refused BMP and liver profile blood draw this morning. Creatinine was 3.19 yesterday Which is slightly higher than his baseline. Will monitor closely. Patient refusing further lab work. Last lab on 04/03 with BUN/creatinine 46/3.19, increased from 2.92. During previous hospitalization his creatinine was 2.0. Hold Lasix. DVT prophylaxis: Already on Eliquis. Eliquis held in preparation for therapeutic paracentesis tomorrow. CODE STATUS: Full code Discharge medication reconciliation done. Discharge follow-up instructions completed. Discharge process discussed with the patient and all questions were answered to patient's satisfaction. Follow with PCP in 1 to 2 weeks Total time spent, exact 35 minutes on discharge meds reconciliation, examination, coordination of care with nurses and ancillary staff, review of imaging and blood test and discussion with the patient on follow-up instructions. laboratory Results 04/05/25 07:11: PT 20.7 H, INR 1.7, APTT 35.2, Total Bilirubin 2.92 H, Direct Bilirubin 1.82 H, AST 46 H, ALT 25, Alkaline Phosphatase 440 H, Total Protein 6.1, Albumin 3.3 L, Globulin 2.8 Medications at Discharge Home Medications apixaban 5 mg tablet (Eliquis) 5 mg PO BID blood thinner 01/04/25 metoprolol tartrate 25 mg tablet 12.5 mg (1/2 x 25 mg) PO BID blood pressure #30 tabs 02/16/25 torsemide 100 mg tablet 100 mg PO Q12.TCU diuretic 03/15/25 Physical Exam Narrative Seen and examined. Shortness of breath has resolved. Has cardiac cirrhosis and chronic HF with EF 15% and with cirrhosis hypervolemia physiology, low BP is expected. No chest pain. Feels mild short of breath. Physical exam General: Alert, Oriented x3, Cooperative HEENT: Atraumatic, PERRLA, EOMI, Normocephalic. Oral: No Gingival or Mucosal Lesions/ Ulcerations Neck: Supple, No JVD, Negative Carotid Bruits Chest wall/Lungs: Air entry diminished in bilateral lung bases. No crepitation/rhonchi Cardiovascular: Soft heart sound no M/G/R Abdomen: Status post paracentesis. Bowel Sounds Present, Soft, Non Tender, : No dysuria. No renal angle tenderness. No suprapubic tenderness. Extremities: No edema, Capillary Refill Less than 3 Seconds Skin: No rashes, No breakdown Musculoskeletal: No Tenderness to Palpation of Joints or Extremities Neurological: Cranial nerves II-XII grossly intact, DTR 2+/4. No acute focal neurological deficit. Psych/Mental Status: Normal Affect, Appropriate. Weight / BMI Weight Weight: 154 lb 8.705 oz Body Mass Index (BMI) 20.4 ABG / Lab / Microbiology Data 04/03/25 06:46 04/03/25 06:46 Radiography Diagnostic Testing: Radiology Impression Paracentesis Ultrasound 04/05/25 07:00 IMPRESSION: Successful therapeutic abdominal ultrasound-guided paracentesis. Reading Location: [place] [id number] D/C Instructions DC O2, CPAP, BIPAP Needs Home O2 Discharge instructions: No Meaningful Use Info Meaningful Use Meaningful Use Diagnoses (Choose all that apply): None applicable Discharge Plan Admission Admit Date/Time: 04/01/25 10:39 Attending Provider: Phil Newell Primary Care Provider: Rosaline Ash Consulting Providers: Smiley Bagley Instructions Additional Instructions / Restrictions: Patient can follow-up in [facility] hepatology center as as he might be a good transplant candidate and evaluation. Patient can have outpatient paracentesis from PCP Discharge Orders/Prescriptions Prescriptions: Continued torsemide 100 mg tablet 100 mg PO Q12.TCU Eliquis 5 mg tablet 5 mg PO BID metoprolol tartrate 25 mg Tablet 12.5 mg PO BID Qty: 30 0RF Referrals / Follow Up: Jeol Berg MD [Med Staff - Active Staff, Cardiology] - 04/20/25 2:30 pm Rosaline Ash, DO [Primary Care Provider, Family Practice] Disposition Disposition (needs filled in before D/C Order can be placed): Home, Self Care Charges/Coding Visit Charges Inpatient E&M: 04982 Disch Hosp >30min
--- NOTE | 2025-04-06 10:49 | PHA.DC.MR.R ---
Pharmacy OR Med Reconciliation Pharmacy Service has performed discharge medication reconciliation for this patient. The patient's discharge medication list was reviewed for discrepancies and discrepancies were resolved. Medications at Discharge Home Medications apixaban 5 mg tablet (Eliquis) 5 mg PO BID blood thinner 01/04/25 metoprolol tartrate 25 mg tablet 12.5 mg (1/2 x 25 mg) PO BID blood pressure #30 tabs 02/16/25 torsemide 100 mg tablet 100 mg PO Q12.TCU diuretic 03/15/25
== END 2025-04-06 15:52 | disposition home or self-care (01) | DRG 433 ==
LOC: ED 08:50 → PCU 11:23 → MS3 04-03 15:38
PROVIDERS: Radiology Nuclear Radiology; Admitting Provider Student in an Organized Health Care Education/Training Program; Emergency Provider Student in an Organized Health Care Education/Training Program; PCP Family Medicine; Visit Provider Internal Medicine
DX: K74.60 Unspecified cirrhosis of liver (principal); N18.4 Chronic kidney disease, stage 4 (severe); I50.42 Chronic combined systolic (congestive) and diastolic (congestive) heart failure; I13.0 Hypertensive heart and chronic kidney disease with heart failure and stage 1 through stage 4 chronic kidney disease, or unspecified chronic kidney disease; I50.82 Biventricular heart failure; Z86.711 Personal history of pulmonary embolism; Z86.718 Personal history of other venous thrombosis and embolism; Z79.01 Long term (current) use of anticoagulants; Z79.899 Other long term (current) drug therapy
CPT/HCPCS: 36415; 49083; 80048; 80053; 80076; 83690; 85025; 85610; 85730; 87040; 97802; 97803; 99285; A4216; J0696; J2405